=== PATIENT | female | born 1970 | race Caucasian/White ===

== ENCOUNTER 2021-07-03 18:56 | Inpatient (IN) | payer BC, SELFPAY ==
[2021-07-03 19:13] VITALS: BP 124/78; BP 131/72; PULSE 62; PULSE 92; RESP 16; RESP 18; TEMP 36.2; TEMP 36.8; O2SAT 91; O2SAT 94; BMI 70.0
[2021-07-03 21:10] VITALS: BP 133/72; PULSE 87; RESP 16; TEMP 36.6; O2SAT 95
[2021-07-03 21:16] VITALS: O2SAT 95
[2021-07-03] MEDS: Senna/Docusate Sodium 1 Tablet 2 TABLET PO (23:12)
[2021-07-03] MEDS: MELATONIN 3 MG TABLET PO (23:13)
[2021-07-03] MEDS: Polyethylene Glycol 3350 17 GM PACKET PO (23:13)
[2021-07-03] MEDS: Albuterol Sulfate 8 gm Inhaler (60 puffs) 2 PUFF INHALATION (23:20)
[2021-07-03 23:24] VITALS: RESP 12; O2SAT 90
[2021-07-03] MEDS: Sodium Chloride 0.65% 1 SPRAY SPRAY.BTL NASAL (23:24)
[2021-07-03 23:37] VITALS: PULSE 86; RESP 12; RESP 18; O2SAT 98
[2021-07-04 03:18] VITALS: PULSE 86; RESP 12; RESP 20; O2SAT 98
[2021-07-04 05:37] LABS: Hematocrit 30.4 % (37-47); Hemoglobin 8.9 g/dL (12.0-15.0); Mean Corp Hgb Conc 29.3 g/dL (32-36); Mean Corpuscular Hgb 23.4 pg (27.0-32.0); Mean Platelet Vol. 8.3 fl (6.2-12.0); POSITIVE MORPHOLOGY YES; Platelet Count 204 K/mm3 (150-450); RBC Distribution Width CV 22.5 % (11.6-14.6); RBC Distribution Width SD 65.9 fl (35.1-43.9); White Blood Count 5.1 K/mm3 (4.4-11.0)
[2021-07-04 05:42] LABS: Scan Indicated on CBC? Y/N YES- FLAGS NOTED
[2021-07-04 05:49] LABS: ALB/GLOB Ratio 0.6 RATIO (0.9-2.4); AST(SGOT) 23 U/L (15-37); Alanine Aminotransfer ALT/SGPT 34 U/L (13-56); Albumin, Serum 2.2 g/dL (3.2-5.0); Alkaline Phosphatase 77 U/L (45-117); Anion Gap 8 (5-15); BUN 45 mg/dL (7-18); BUN/Creat Ratio 18.9 RATIO (10-20); Calcium,Total 8.6 mg/dL (8.5-10.1); Chloride 104 mmol/L (98-107); Creatinine, Serum 2.38 mg/dL (0.55-1.02); EST Glomerular Filtration Rate 23 mL/min (>60); Est Glom Filt Rate - Afr Amer 27 mL/min (>60); Glucose 97 mg/dL (74-106); Magnesium 1.5 mg/dL (1.6-2.6); Phosphorus 5.5 mg/dL (2.5-4.9); Potassium 4.2 mmol/L (3.5-5.1); Protein, Total 6.2 g/dL (6.4-8.2); Sodium Level 140 mmol/L (136-145)
[2021-07-04] MEDS: Cholestyramine/Sucrose 4 GM/PACKET 2 GM PO (06:32)
[2021-07-04 07:09] VITALS: BP 126/76; PULSE 80; RESP 20; TEMP 36.4; O2SAT 99
[2021-07-04 07:20] VITALS: RESP 20
[2021-07-04] MEDS: Sodium Chloride 3% 500 ML IV.SOLN. INHALATION ×2 (07:20→22:49)
[2021-07-04] MEDS: Aspirin 81 MG TAB.CHEW PO (08:51)
[2021-07-04] MEDS: Pantoprazole Sodium 40 MG Tablet PO (08:51)
[2021-07-04] MEDS: Gabapentin 300 MG Capsule PO (08:51)
[2021-07-04] MEDS: Polyethylene Glycol 3350 17 GM PACKET PO ×2 (08:51→21:16)
[2021-07-04] MEDS: Cholecalciferol (VIT D3) 25 MCG TABLET (1,000 UNITS) 50 MCG PO (08:52)
[2021-07-04] MEDS: Senna/Docusate Sodium 1 Tablet 2 TABLET PO ×2 (08:52→21:16)
--- NOTE | 2021-07-04 10:36 | HP.PCM_ITS ---
HPI - General General Date of Admission: 07/03/21 HPI Narrative PHILLIP GARCIA, is a 51 F with a PMH of obesity, MIGUEL, GERD, chronic diarrhea following cholecystectomy and anxiety who presented to [facility] on 06/03/21 with acute hypoxic respiratory failure due to COVID 19 PNA. She was a transfer from [facility] where she presented on 06/02/21 for a higher level of care. She was unvaccinated. She was intubated from 06/04-06/18 and during her time in the ICU she had multiple complications that included MRS PNA, MSSA PNA, COVID PNA and Staph Hominis bacteremia. She had ARF and the Creat is still elevated. While in the ICU she had hallucinations and she believes that 1 of the doctors was doing things that were not good for her. She has never been one to follow up with a doctor regularly. Last PAP and MMG were several years ago. She has never had a colonoscopy. Prior to becoming ill with COVID she was thinking about looking into bariatric surgery to help her lose weight. She has been having a lot of pain in the knees and the hips and tells me that prior to becom ing ill the R leg has been weaker than the left. She has been having trouble walking and at the end of the day prior to the illness she had to use a rollator for stability/support. she became very weak with prolonged complicated illness due to COVID. She was transferred to the inpt rehab unit at [facility] on 07/03/21 for 3 hours of therapy daily to restore function/independence to her level prior to COVID. 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 She drives and was independent in all ADL's. Echocardiogram at an outside hospital in March 2021 showed an EF of 55 to 60% with no wall motion abnormalities. There was mild to moderate concentric LVH. No pulmonary hypertension was noted. Repeat ECHO at [facility] normal wall thickness of the left ventricle with a 55% ejection fraction. There was no significant valvular heart disease and it was a difficult study and could not estimate the right ventricular systolic pressure. She also had an event monitor at that time and everything was good. Intubated from 06/04?06/18. She had Staph Hominis bacteremia during her stay at [facility] Ultrasound of the lower extremities on 06/15/2021 was negative for superficial or deep vein thrombosis. She has only had 1 sleep study and that was 15 years ago. She has a CPAP unit at home and does not know the pressure. While at [facility] she was extubated and placed on BIPAP at 14/8. Has occasionally felt depressed in the past but, it passes shortly and she has never had any tx. the anxiety she was having at [facility] was fear based because she strongly believed one of the docs in the ICU was trying to hurt her. [facility] Medical History (Updated 07/08/21 @ 11:[address] Katherine Jonas DO) Anxiety Asthma Depression GERD without esophagitis Heel spur Insomnia Osteoarthritis (arthritis due to wear and tear of joints) Peripheral neuropathy Allergy/AdvReac Type Severity Reaction Status Date / Time No Known Allergies Allergy Verified 07/03/21 20:02 Family History (Updated 07/04/21 @ 10:[address] Katherine Jonas DO) Mother Alzheimer's dementia Surgical History (Updated 07/04/21 @ 15:[address] Katherine Jonas DO) H/O foot surgery History of cholecystectomy History of hip surgery Social History (Updated 07/04/21 @ 15:[address] 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 For lunch she has a bowl of soup and crackers which she takes to work. Sometimes has pretzels for a snack. Eats lunch at 12:30- 1 and does not get home until 7 PM and then she is starved. Her sometimes cooks and it is usually not healthy and may include pizza, hot dogs, fast food. Does not plan meals and her hisband is not supportive of healthy eating. He is a little overweight and likes to eat junk. ROS Constitutional Constitutional: Reports body ache(s), change in weight, daytime sleepiness, d ifficulty sleeping, night sweats and weight gain Eyes Eyes: Denies blurry vision, burning, periorbital itching or photophobia ENT HEENT: Reports dry mouth Cardiovascular Cardiovascular: Reports dyspnea on exertion, easily tiring during activity and edema; Denies chest pain, claudication, dizziness, leg ulcers, lightheadedness or numbness in extremities Respiratory/Chest Respiratory/Chest: Reports cough, dyspnea on exertion and shortness of breath with exertion; Denies hemoptysis Gastrointestinal Gastrointestinal: Reports diarrhea; Denies abdominal pain or dyspepsia Genitourinary Genitourinary: Denies burning urination Musculoskeletal Musculoskeletal: Reports arthralgias and joint stiffness Integumentary Integumentary: Reports wounds; Denies alopecia, pruritus, rash or unusual bruising Neurologic Neurologic: Reports burning sensations and focal weakness; Denies headache(s) Psychiatric Psychiatric: Reports visual hallucinations; Denies behavioral changes, cognitive impairment, confusion, homicidal ideation, panic attacks, suicidal ideation or suicidal thoughts Endocrine Endocrinology: Denies polydipsia, polyphagia or polyuria Hematologic/Lymphatic Hematologic/Lymphatic: Denies easy bleeding or easy bruising Allergic/Immunologic Allergic/Immunologic: Reports rhinitis Vital Signs Vital Signs Vital Signs: 07/03/21 19:13 07/03/21 21:10 07/03/21 21:16 Temperature 97.1 F L 98 F Temperature Source Temporal Oral Pulse Rate 62 87 Respiratory Rate 16 16 Respiratory Effort Normal Non-Labored Respiratory Depth Normal Respiratory Pattern Normal Blood Pressure 124/78 H 133/72 H Blood Pressure Mean 93 92 Blood Pressure Source Monitor Monitor Blood Pressure Position Semi-Fowlers Semi-Fowlers Blood Pressure Location Right Arm Right Arm Pulse Ox 94 95 95 Oxygen Delivery Method Nasal Cannula Nasal Cannula Nasal Cannula Oxygen Flow Rate (L/min) 2 2 2 Fraction of Inspired Oxygen (FIO2) 07/03/21 23:24 07/03/21 23:37 07/04/21 03:18 Temperature Temperature Source Pulse Rate 86 86 Respiratory Rate 18 20 H Respiratory Effort Non-Labored Respiratory Depth Normal Respiratory Pattern Normal Normal Normal Blood Pressure Blood Pressure Mean Blood Pressure Source Blood Pressure Position Blood Pressure Location Pulse Ox 90 98 98 Oxygen Delivery Method Room Air Oxygen Flow Rate (L/min) Fraction of Inspired Oxygen (FIO2) 35 35 35 07/04/21 07:09 07/04/21 07:20 07/04/21 10:18 Temperature 97.5 F L Temperature Source Oral Pulse Rate 80 Respiratory Rate 20 H 20 H Respiratory Effort Respiratory Depth Respiratory Pattern Normal Blood Pressure 126/76 H Blood Pressure Mean 92 Blood Pressure Source Monitor Blood Pressure Position Semi-Fowlers Blood Pressure Location Right Arm Pulse Ox 99 Oxygen Delivery Method Bi-pap Nasal Cannula Oxygen Flow Rate (L/min) 2 2 2 Fraction of Inspired Oxygen (FIO2) Weight Weight: 420 lb 15.063 oz Body Mass Index (BMI) 70.0 Physical Exam Const alert, oriented x3 and no apparent distress Constitutional Narrative: Making good eye contact, appropriate. General Appearance: cooperative, comfortable, well kempt and anxious HEENT HEENT Narrative: dry mucous membranes Neck no lymphadenopathy, supple and no carotid bruits Resp normal respiratory effort, no use of accessory muscles and clear to auscultation bilaterally Resp Narrative: Not tachypneic and no conversational dyspnea. BS's are diminished in the bases and this is more than likely due to body habitus. Cardio regular rate, regular rhythm, S1 normal heart sound, S2 normal heart sound, no murmurs, no rub and no gallops Cardio Narrative: When she becomes anxious the heart rate goes up. GI normal to inspection, nondistended, normoactive bowel sounds and non-tender GI Narrative: No guarding with palpation. Extremity Extremity Narrative: Negative Myron's and Rylie's signs She has edema of both LE's but, she states this is the best the edema has been in a long time. Skin Skin Narrative: No rashes. She has a pressure ulcer on the R buttock which has a scab on it and is thus unstageable. She has breakdown in a skin fold on her back which I can not really call a pressure wound. It may have happened due to moisture accumulation/maceration in the fold. the base is 80% slough. It is moist but, there is no purulent drainage and there is no odor. She has some bruising around the buttocks and the tops of the posterior thighs which I suspect is due to the bedpan. Neuro oriented x3, CN's II-XII intact bilaterally and no focal motor deficits Motor Exam: strength 5/5 throughout Psych affect normal Psych Narrative: Appropriate, making good eye contact. Able to stay on topic and focus. No flight of ideas. She gets tearful at times and I suspect she has underlying depression and anxiety. She denies any SI or HI. Committed to getting better. Results Lab / Micro Data Result Diagrams: 07/04/21 05:26 07/08/21 09:16 Labs: Laboratory Results - last 24 hr 07/04/21 05:26: Sodium 140, Potassium 4.2, Chloride 104, Carbon Dioxide 28.0, Anion Gap 8, BUN 45 H, Creatinine 2.38 H, Estim Creat Clear Calc 24.60, Est GFR (MDRD) Af Amer 27 L, Est GFR (MDRD) Non-Af 23 L, BUN/Creatinine Ratio 18.9, Glucose 97, Calcium 8.6, Phosphorus 5.5 H, Magnesium 1.5 L, Total Bilirubin 0.40, AST 23, ALT 34, Alkaline Phosphatase 77, Total Protein 6.2 L, Albumin 2.2 L, Globulin 4.0, Albumin/Globulin Ratio 0.6 L 07/04/21 05:26: WBC 5.1, RBC 3.80 L, Hgb 8.9 L, Hct 30.4 L, MCV 80.0 L, MCH 23.4 L, MCHC 29.3 L, RDW Std Deviation 65.9 H, RDW Coeff of Rani 22.5 H, Plt Count 204, MPV 8.3 Assessment & Plan Assessment/Plan (1) Debility: (2) COVID-19 virus infection: (3) MIRIAM (acute kidney injury): (4) Iron deficiency anemia due to chronic blood loss: (5) Hyperphosphatemia: (6) Hypomagnesemia: (7) Hypokalemia: (8) Hypoxemia requiring supplemental oxygen: (9) Anxiety: (10) Decubitus ulcer, stage 3: (11) Super obesity: (12) Peripheral neuropathy: (13) MIGUEL (obstructive sleep apnea): (14) Glucose intolerance: PLAN: PLAN PT for gait stability OT for ADL's Analgesics as needed Bowel protocol - she is on stool softeners and Questran also - ? contradictory. Will DC the Questran. Fall precautions Assess for Anxiety/Depression GI prophylaxis with pantoprazole DVT prophylaxis with Lovenox 40 mg subcu twice daily Follow up with PCP and pulmonary following DC from [facility] AM lab including CMP, CBC, Mag and Phos - personally reviewed Check a hemocclut stool. How did she get iron deficient if she is not having periods? Will need a new sleep study post DC.....will try to arrange for the night of DC when we know the day of discharge. Network Support Administrator consult I suspect she does not have diarrhea due to bile acids......I suspect she has IBS and the reason the diarrhea is in the AM is because she is anxious about going to work. Establish a good diet to promote weight loss prior to DC and recommend she follow up with the [facility] program. I think that she would benefit from counselling greatly to learn how to set boundaries. Santyl to the wound in the skin fold and Mepilex to the decub on the R buttock Charges/Coding Visit Charges Inpatient E&M: 63948 Init Hosp L3
[2021-07-04] MEDS: Menthol/Lanolin/Calamine/Znox 113 GM Tube 1 APPLIC TOPICAL ×2 (11:03→21:15)
[2021-07-04] MEDS: Fluticasone 0.05% 1 SPRAY NASAL.SRY 2 SPRAY NASAL ×2 (11:03→21:15)
[2021-07-04] MEDS: Nystatin Powder 15gm Bottle 1 APPLIC TOPICAL ×2 (11:05→21:18)
[2021-07-04] MEDS: guaiFENesin 600 MG Tablet PO ×2 (11:05→21:16)
[2021-07-04] MEDS: Ferrous Sulfate 325 MG Tablet PO (11:05)
[2021-07-04] MEDS: Enoxaparin 40 MG/0.4 ML Syringe SC ×2 (12:15→21:16)
--- NOTE | 2021-07-04 12:15 | NURSING ---
wound photo: lower back skin fold
--- NOTE | 2021-07-04 12:15 | NURSING ---
wound photo: right buttock
--- NOTE | 2021-07-04 14:42 | PCM.RU.PYE ---
Admission Information Primary Diagnosis:: debility due to COVID 19 with severe sepsis and prolonged intubation Status Changes from Prescreening?: No changes Identified Actual Problem List:: Infection, Skin Intergrity, Depression, Bladder Incontinence, Bowel, Constipation, Alteration in Sleep, Alteration in Nutrition, Mobility Impaired, Self Care Deficit, Alteration/ Air Exchange, Fluid Change-Dehydration and Alteration-Leisure Activ. Potential Problem List:: DVT, Bleeding, Infection, UTI, Aspiration, Falls, Skin Integrity and Depression Risk of Complications DVT: LMWH and CHRISTINA Hose Bleeding: Monitor Lab Values, Nursing to Teach Precautions for anti-coagulation therapy., Wound, if applicable, to be assessed every shift. and Stroke patients assessed for lethargy or change in status. Infection: Clinical Staff to Monitor for S/S of infection: and S/S of infection include fever, redness, warmth, etc. Urinary Tract Infection: Monitor for frequency, burning, discomfort, or incontinence. and Nursing will obtain urine sample for urinalysis and C&S when ordered. Aspiration: Clinical staff will monitor for coughing, drooling, congestion., Speech will evaluate swallowing and dsyphasia. and Nursing will monitor patient swallowing during meals. Falls: Patient will be evaluated for Fall Precautions and Patient will be placed on Fall Precautions as indicated per protocol. Skin Breakdown: Nursing will assess skin daily using assessment tool. and Nursing will place on Skin Breakdown Precautions as indicated. Pain: Clinical staff will assess patient's pain level per protocol., Medications will be given, if needed, and the pain level reassessed. and Other methods: Massage, distraction, decrease stimulus, etc. used PRN. Plan of Care Patient requires physician specializing in physical medicine and rehab oversight to provide close medical supervision of rehab issues including: Pain Management, Sleep Problems, Bowel and Bladder, Medical and co-morbidity Management, DVT prophylaxis, Rehabilitation Leadership and Coordination of treatment team Patient needs Physical Therapy: For a minimum of 1 hour and At least 5 out of 7 days Patient needs Physical Therapy to improve:: Mobility, Strengthening, Transfers, Stretching, ROM, Endurance, Stairs, Gait and Balance Patient needs Occupational Therapy: For a minimum of 1 hour and At least 5 out of 7 days Patient needs Occupational Therapy to improve ADL's incl.: Eating, Grooming, Bathing, Dressing, Toileting, Toilet transfers, Community Reintegration, Higher functioning activities, Household tasks, Adaptive Equipment, Splinting and Other activities as determined Patient requires 24/7 Rehabilitation Nursing for: Pain Issues, Identifying and preventing risk factors, Monitoring and reporting current medical conditions, Assisting with ambulation, transfer, and all ADL's, Teaching patients about disease process and medications, Family teaching, Providing safe environment, Bowel and Bladder Issues, Skin integrity and Medication Management Patient needs Developer Designer/ Case Management for: Discharge Planning, Arranging Home Equipment or Services and Family Interventions Patient needs Dietary and Nutrition Services for: Adequate Nutrition, Nutritional Supplements and Nutritional Education Goals Patient will remain: free from falls Patient will perform bed mobility at: MOD I level of assist. Patient will complete transfers from bed to chair at: - (Min assist x2 for safety) Patient will ambulate: - (25 feet with a Rollator) Patient will complete upper body dressing at: MOD I level of assist. Patient will complete lower body dressing at: - (Minimal assistance) Patient will complete toileting at: - (Min assist x2) Patient will perform bathing at: - (Min assist x2) Patient will achieve: - (2 steps and one curb step) Patient will have pain level of: of 3 or less Patient's skin will: remain intact Patient will receive: adequate nutrition. Discharge Planning Pt Prognosis for Sig. Practical Improv. w/in Reasonable Time: Good Estimated Length of stay (days): 21 Anticipated D/C Destination: TBD Was Preadmission Assessment Accurate?: Yes
[2021-07-04] MEDS: Calcium Carbonate 500 MG Tablet PO (18:00)
[2021-07-04] MEDS: Juven (unflavored) Packet 1 PACKET PO (18:00)
[2021-07-04 19:55] VITALS: BP 112/74; PULSE 86; RESP 16; TEMP 36.9; O2SAT 92
[2021-07-04] MEDS: MELATONIN 3 MG TABLET PO (21:16)
[2021-07-04 22:03] VITALS: PULSE 86; RESP 20
[2021-07-04 22:43] VITALS: PULSE 73; RESP 12; RESP 17; O2SAT 98
[2021-07-05] VITALS (9 sets, daily range): BP systolic 128–139; BP diastolic 73–75; PULSE 74–93; RESP 12–25; TEMP 36.6–36.7; O2SAT 91–98
[2021-07-05] MEDS: Acetaminophen 500 MG Tablet 1000 MG PO ×2 (05:59→21:38)
[2021-07-05] MEDS: Sodium Chloride 3% 500 ML IV.SOLN. INHALATION ×3 (07:18→22:30)
[2021-07-05] MEDS: Fluticasone 0.05% 1 SPRAY NASAL.SRY 2 SPRAY NASAL ×2 (08:45→21:40)
[2021-07-05] MEDS: Enoxaparin 40 MG/0.4 ML Syringe SC ×2 (08:46→21:38)
[2021-07-05] MEDS: Juven (unflavored) Packet 1 PACKET PO ×2 (08:47→18:16)
[2021-07-05] MEDS: guaiFENesin 600 MG Tablet PO ×2 (08:48→21:37)
[2021-07-05] MEDS: Cholecalciferol (VIT D3) 25 MCG TABLET (1,000 UNITS) 50 MCG PO (08:48)
[2021-07-05] MEDS: Aspirin 81 MG TAB.CHEW PO (08:48)
[2021-07-05] MEDS: Calcium Carbonate 500 MG Tablet PO ×2 (08:48→18:16)
[2021-07-05] MEDS: Nystatin Powder 15gm Bottle 1 APPLIC TOPICAL ×2 (08:51→21:37)
[2021-07-05] MEDS: Menthol/Lanolin/Calamine/Znox 113 GM Tube 1 APPLIC TOPICAL ×2 (08:52→21:43)
[2021-07-05] MEDS: Gabapentin 300 MG Capsule PO (11:35)
[2021-07-05] MEDS: Pantoprazole Sodium 40 MG Tablet PO (11:35)
[2021-07-05] MEDS: Ferrous Sulfate 325 MG Tablet PO (11:35)
[2021-07-05] MEDS: Ascorbic Acid 500 MG Tablet PO (11:35)
[2021-07-05 14:11] LABS: Bedside Glucose 150 mg/dL (70-110)
[2021-07-05] MEDS: Collagenase 30gm Tube 1 APPLIC TOPICAL (21:36)
[2021-07-05] MEDS: MELATONIN 3 MG TABLET PO (21:38)
[2021-07-06] VITALS (9 sets, daily range): BP systolic 121–133; BP diastolic 69–88; PULSE 67–92; RESP 12–20; TEMP 36.7–36.9; O2SAT 91–98
[2021-07-06] MEDS: Pantoprazole Sodium 40 MG Tablet PO (06:58)
[2021-07-06] MEDS: Nystatin Powder 15gm Bottle 1 APPLIC TOPICAL ×2 (06:58→20:45)
[2021-07-06] MEDS: Sodium Chloride 3% 500 ML IV.SOLN. INHALATION ×2 (08:00→21:54)
[2021-07-06] MEDS: guaiFENesin 600 MG Tablet PO ×2 (08:18→20:42)
[2021-07-06] MEDS: Fluticasone 0.05% 1 SPRAY NASAL.SRY 2 SPRAY NASAL ×2 (08:18→20:41)
[2021-07-06] MEDS: Calcium Carbonate 500 MG Tablet PO ×2 (08:18→16:35)
[2021-07-06] MEDS: Juven (unflavored) Packet 1 PACKET PO ×2 (08:18→16:36)
[2021-07-06] MEDS: Gabapentin 300 MG Capsule PO (08:18)
[2021-07-06] MEDS: Aspirin 81 MG TAB.CHEW PO (08:18)
[2021-07-06] MEDS: Cholecalciferol (VIT D3) 25 MCG TABLET (1,000 UNITS) 50 MCG PO (08:18)
[2021-07-06] MEDS: Enoxaparin 40 MG/0.4 ML Syringe SC ×2 (08:19→20:42)
[2021-07-06] MEDS: Menthol/Lanolin/Calamine/Znox 113 GM Tube 1 APPLIC TOPICAL ×2 (08:21→20:47)
[2021-07-06] MEDS: Acetaminophen 500 MG Tablet 1000 MG PO (08:37)
--- NOTE | 2021-07-06 10:30 | PCM.PN.BLA ---
Progress Note Afebrile VSS Maintaining appropriate oxygen saturation on RA Oral intake is good Discussed with nursing - no problems that need addressed Reviewed the PT/OT/ST notes Medication list reviewed. I reviewed the senior warehouse clerk' consult and recommendations She is c/o not sleeping well at night. still having some abd cramping at times. Denies CP, calf pain, N/V, lightheadedness. She is SOB with exertion and tachypneic. HR increases 20-30 BPM with exertion Physical Exam Const alert and oriented x3 Constitutional Narrative: Appears anxious. Already worried about being discharged prior to when she feels she is ready to go home. General Appearance: cooperative Resp clear to auscultation bilaterally Resp Narrative: diminished due to body habitus. SHe has no rales, rhonchi or wheeZes. she is not tachypneic at rest, only with exertion Effort and Inspection: able to speak in complete sentences Cardio regular rhythm Cardio Narrative: HR increases significantly with any exertion. Heart sounds are distant. Radial pulse is strong. GI normal to inspection, nondistended, normoactive bowel sounds Extremity no calf tenderness and no pedal edema Extremity Narrative: venous HTN with purplish discoloration of the distal legs when the legs are dependent Skin Skin Narrative: no change in the decubitus ulcers on the R buttock and in the skin fold on her back Neuro CN's II-XII intact bilaterally and moves all extremities Assessment & Plan Assessment/Plan (1) Depression: (2) Dyspnea on exertion: (3) IBS (irritable bowel syndrome): (4) Iron deficiency anemia due to chronic blood loss: (5) Super obesity: (6) MIGUEL (obstructive sleep apnea): (7) Pneumonia due to 2019 novel coronavirus: (8) Decubitus ulcer, stage 3: PLAN: 1. Continue therapy. 2. I suspect the marked dyspnea on exertion and tachycardia is due to deconditioning and obesity. Cannot rule out at this point that she has some structural lung damage secondary to recent Covid pneumonia followed by MRSA pneumonia. May need pulmonary function tests going forward. Continue inhalers. 3. Continue calorie controlled diet 4. Continue Effexor XR 75 mg daily Visit Charges Inpatient E&M: 36909 Subs Hosp L2
[2021-07-06] MEDS: Ferrous Sulfate 325 MG Tablet PO (12:11)
[2021-07-06] MEDS: Ascorbic Acid 500 MG Tablet PO (12:11)
[2021-07-06] MEDS: MELATONIN 3 MG TABLET PO (20:42)
[2021-07-06] MEDS: Collagenase 30gm Tube 1 APPLIC TOPICAL (20:43)
[2021-07-07 02:09] VITALS: RESP 12
[2021-07-07] MEDS: Pantoprazole Sodium 40 MG Tablet PO (05:49)
[2021-07-07] MEDS: Nystatin Powder 15gm Bottle 1 APPLIC TOPICAL ×2 (06:03→21:21)
[2021-07-07 07:13] VITALS: BP 128/70; PULSE 74; RESP 18; TEMP 36.6; O2SAT 91
[2021-07-07] MEDS: Enoxaparin 40 MG/0.4 ML Syringe SC ×2 (09:01→21:20)
[2021-07-07] MEDS: Fluticasone 0.05% 1 SPRAY NASAL.SRY 2 SPRAY NASAL ×2 (09:02→21:22)
[2021-07-07] MEDS: Cholecalciferol (VIT D3) 25 MCG TABLET (1,000 UNITS) 50 MCG PO (09:02)
[2021-07-07] MEDS: Gabapentin 300 MG Capsule PO (09:02)
[2021-07-07] MEDS: Calcium Carbonate 500 MG Tablet PO ×2 (09:02→17:39)
[2021-07-07] MEDS: Venlafaxine XR 75 MG Capsule PO (09:02)
[2021-07-07] MEDS: guaiFENesin 600 MG Tablet PO ×2 (09:02→21:20)
[2021-07-07] MEDS: Juven (unflavored) Packet 1 PACKET PO ×2 (09:03→17:36)
[2021-07-07] MEDS: Aspirin 81 MG TAB.CHEW PO (09:03)
[2021-07-07] MEDS: Menthol/Lanolin/Calamine/Znox 113 GM Tube 1 APPLIC TOPICAL ×2 (10:52→21:19)
[2021-07-07] MEDS: Ferrous Sulfate 325 MG Tablet PO (11:09)
[2021-07-07] MEDS: Ascorbic Acid 500 MG Tablet PO (11:09)
[2021-07-07] MEDS: Acetaminophen 500 MG Tablet 1000 MG PO (11:09)
[2021-07-07 19:35] VITALS: BP 136/67; PULSE 80; RESP 18; TEMP 36.8; O2SAT 94
[2021-07-07] MEDS: MELATONIN 3 MG TABLET PO (21:20)
[2021-07-07] MEDS: Collagenase 30gm Tube 1 APPLIC TOPICAL (21:22)
[2021-07-07] MEDS: Sodium Chloride 3% 500 ML IV.SOLN. INHALATION (21:38)
[2021-07-07 21:39] VITALS: PULSE 81; RESP 20
[2021-07-07 22:00] VITALS: PULSE 80; RESP 18
[2021-07-07 22:02] VITALS: RESP 12; RESP 18
[2021-07-08] VITALS (8 sets, daily range): BP systolic 77–153; BP diastolic 48–88; PULSE 79–104; RESP 12–20; TEMP 36.6; O2SAT 94–96
[2021-07-08] MEDS: Acetaminophen 500 MG Tablet 1000 MG PO (00:01)
[2021-07-08] MEDS: traZODone 50 MG Tablet PO (00:01)
[2021-07-08] MEDS: Sodium Chloride 3% 500 ML IV.SOLN. INHALATION (06:40)
[2021-07-08] MEDS: Pantoprazole Sodium 40 MG Tablet PO (06:40)
[2021-07-08] MEDS: Nystatin Powder 15gm Bottle 1 APPLIC TOPICAL ×2 (06:41→21:21)
[2021-07-08] MEDS: Aspirin 81 MG TAB.CHEW PO (07:53)
[2021-07-08] MEDS: Juven (unflavored) Packet 1 PACKET PO ×2 (07:53→17:10)
[2021-07-08] MEDS: Calcium Carbonate 500 MG Tablet PO ×2 (07:53→17:10)
[2021-07-08] MEDS: guaiFENesin 600 MG Tablet PO ×2 (07:53→21:22)
[2021-07-08] MEDS: Cholecalciferol (VIT D3) 25 MCG TABLET (1,000 UNITS) 50 MCG PO (07:53)
[2021-07-08] MEDS: Venlafaxine XR 75 MG Capsule PO (07:53)
[2021-07-08] MEDS: Fluticasone 0.05% 1 SPRAY NASAL.SRY 2 SPRAY NASAL ×2 (07:55→21:23)
[2021-07-08] MEDS: Enoxaparin 40 MG/0.4 ML Syringe SC ×2 (07:55→21:22)
[2021-07-08] MEDS: Menthol/Lanolin/Calamine/Znox 113 GM Tube 1 APPLIC TOPICAL ×2 (08:04→21:22)
[2021-07-08 09:43] LABS: Anion Gap 8 (5-15); BUN 52 mg/dL (7-18); BUN/Creat Ratio 33.8 RATIO (10-20); Calcium,Total 8.8 mg/dL (8.5-10.1); Chloride 104 mmol/L (98-107); Creatinine, Serum 1.54 mg/dL (0.55-1.02); EST Glomerular Filtration Rate 37 mL/min (>60); Est Glom Filt Rate - Afr Amer 45 mL/min (>60); Estimated Creatinine Clearance 38.02 ml/min; Glucose 121 mg/dL (74-106); Magnesium 1.4 mg/dL (1.6-2.6); Phosphorus 3.9 mg/dL (2.5-4.9); Potassium 3.8 mmol/L (3.5-5.1); Sodium Level 139 mmol/L (136-145)
--- NOTE | 2021-07-08 11:26 | PCM.PN.BLA ---
Progress Note Jenna was seen on team rounds today. Her Sister Maggie was participating by phone. Afebrile VSS-blood pressure dropped to 77 when standing this AM with PT. the heart rate increased to 104. She is c/o lightheadedness. Maintaining appropriate oxygen saturation on RA Oral intake is good She is incontinent of urine. Discussed with nursing - nursing is reporting she is c/o abd pain and nausea. Did not get out of bed yesterday and would not walk with nursing. The pt tells me that she got nauseated after a breathing tx. Reviewed the PT/OT notes Medication list reviewed. Lab today shows that the BUN has increased to 52 but the creatinine has improved and is 1.54 today which is down from 2.38 at admission. Phosphorus is now normal at 3.9 but the magnesium remains low at 1.4. She denies CP, SOB, calf pain. No emesis. The PROMISE wraps are not very effective because they are falling down and they are around her ankles. Physical Exam Const Constitutional Narrative: Sitting in the recliner. Looking pale. Not diaphoretic. Alert ad oriented X 3. Does not look uncomfortable. General Appearance: cooperative Resp normal respiratory effort and no use of accessory muscles Resp Narrative: Not tachypneic and no conversational dyspnea. The lungs are clear to auscultation bilaterally but diminished and that is more likely than not secondary to body habitus. Effort and Inspection: able to speak in complete sentences Cardio regular rate and regular rhythm Cardio Narrative: Gets tachycardic when going from sitting to standing and with exertion. Extremity no calf tenderness Extremity Narrative: She has edema of the LE's Skin Wound Narrative: Will examine when the dressing is changed today. The nurses report that the wound on the R buttock is looking better. Neuro oriented x3, CN's II-XII intact bilaterally and moves all extremities Psych Psych Narrative: Gets anxious easily and jumps to conclusions. She told nursing it was the Effexor that caused the nausea and she had not even had a dose yet. She has a fear of doctors and over the years has not been regularly seeing her PCP. She recently changed PCP's. She has lost 5 lbs since admission and she is happy about this. Assessment & Plan Assessment/Plan (1) Debility: PLAN: Continue therapy (2) COVID-19 virus infection: PLAN: active infection resolved (3) Hypokalemia: PLAN: resolved (4) Hyperphosphatemia: PLAN: resolved (5) Hypomagnesemia: PLAN: Add a magnesium supplement and recheck in a few days (6) MIRIAM (acute kidney injury): PLAN: improving. I suspect she has IV volume depletion. We will DC the fluid restriction and I asked her to increase her water intake today. (7) Orthostatic hypotension: PLAN: Not on any antihypertensives. I suspect this is due to IV volume depletion and she was asked to increase her fluid intake today. Recheck the orthostatics in the AM. (8) Decubitus ulcer, stage 3: PLAN: This may have been a stage 3 initially but now she has qa Stage 2 in the skin fold on the back and an unstageable on the buttock due to the presence of eschar. (9) Iron deficiency anemia due to chronic blood loss: PLAN: Continue iron and ascorbic acid. If she continues to c/o nausea will DC the oral iron and give iron sucrose IV. (10) MIGUEL (obstructive sleep apnea): PLAN: needs a sleep study. I do not feel the pressure on her CPAP is adequate.....has not had a sleep study in 15 years and she has gained a lot of weight. (11) Anxiety: PLAN: This may be related to sleep deprivation.......she is also depressed. (12) Asthma: PLAN: Change the Albuterol to an inhaler and use PRN since she thinks the breathing treatments are making her nauseated. (13) IBS (irritable bowel syndrome): PLAN: Continue the Effexor. Visit Charges Inpatient E&M: 32201 Subs Hosp L2
[2021-07-08] MEDS: Magnesium Chloride 64 MG Delay Rel.Tablet 128 MG PO (15:04)
[2021-07-08] MEDS: Ferrous Sulfate 325 MG Tablet PO (15:04)
[2021-07-08] MEDS: Ascorbic Acid 500 MG Tablet PO (15:04)
--- NOTE | 2021-07-08 16:52 | CASEMGMT ---
Team meeting held with pt present and pt sister Maggie on conference call. Pt is receiving PT/OT and progressing with therapy. Pt updated that NRD with insurance is 07/10/21 and continued stay is not guaranteed. Pt plans to return home with her at time of discharge. Will continue with treatment plan at this time and reteam next week. [place]
[2021-07-08] MEDS: Collagenase 30gm Tube 1 APPLIC TOPICAL (21:20)
[2021-07-08] MEDS: MELATONIN 3 MG TABLET PO (21:22)
[2021-07-09] MEDS: Nystatin Powder 15gm Bottle 1 APPLIC TOPICAL ×2 (06:16→21:51)
[2021-07-09] MEDS: Pantoprazole Sodium 40 MG Tablet PO (06:20)
[2021-07-09] MEDS: Albuterol Sulfate 8 gm Inhaler (60 puffs) 2 PUFF INHALATION (06:30)
[2021-07-09] MEDS: Aspirin 81 MG TAB.CHEW PO (07:33)
[2021-07-09] MEDS: Acetaminophen 500 MG Tablet 1000 MG PO ×2 (07:33→16:13)
[2021-07-09] MEDS: Calcium Carbonate 500 MG Tablet PO ×2 (07:34→16:44)
[2021-07-09] MEDS: Enoxaparin 40 MG/0.4 ML Syringe SC ×2 (07:34→21:50)
[2021-07-09] MEDS: guaiFENesin 600 MG Tablet PO ×2 (07:34→21:49)
[2021-07-09] MEDS: Cholecalciferol (VIT D3) 25 MCG TABLET (1,000 UNITS) 50 MCG PO (07:34)
[2021-07-09] MEDS: Venlafaxine XR 75 MG Capsule PO (07:34)
[2021-07-09] MEDS: Juven (unflavored) Packet 1 PACKET PO ×2 (07:35→16:45)
[2021-07-09] MEDS: Fluticasone 0.05% 1 SPRAY NASAL.SRY 2 SPRAY NASAL ×2 (07:37→21:50)
[2021-07-09] MEDS: Menthol/Lanolin/Calamine/Znox 113 GM Tube 1 APPLIC TOPICAL ×2 (07:39→21:52)
[2021-07-09 08:28] VITALS: BP 126/78; PULSE 86; RESP 16; TEMP 36.6; O2SAT 93
[2021-07-09] MEDS: Ferrous Sulfate 325 MG Tablet PO (13:07)
[2021-07-09] MEDS: Ascorbic Acid 500 MG Tablet PO (13:07)
[2021-07-09] MEDS: Magnesium Chloride 64 MG Delay Rel.Tablet 128 MG PO (16:44)
[2021-07-09 19:31] VITALS: BP 144/78; PULSE 84; RESP 18; TEMP 36.4; O2SAT 95
[2021-07-09] MEDS: MELATONIN 3 MG TABLET PO (21:49)
[2021-07-09] MEDS: Collagenase 30gm Tube 1 APPLIC TOPICAL (21:50)
[2021-07-09 22:00] VITALS: PULSE 71; RESP 17
[2021-07-09 22:10] VITALS: PULSE 80; RESP 12; RESP 18; O2SAT 95
[2021-07-09] MEDS: traZODone 50 MG Tablet PO (23:54)
[2021-07-10] MEDS: Pantoprazole Sodium 40 MG Tablet PO (06:28)
[2021-07-10] MEDS: Nystatin Powder 15gm Bottle 1 APPLIC TOPICAL ×2 (06:29→22:17)
[2021-07-10 07:25] VITALS: O2SAT 93
[2021-07-10] MEDS: Fluticasone 0.05% 1 SPRAY NASAL.SRY 2 SPRAY NASAL ×2 (07:57→22:18)
[2021-07-10] MEDS: Juven (unflavored) Packet 1 PACKET PO ×2 (07:57→17:00)
[2021-07-10] MEDS: Aspirin 81 MG TAB.CHEW PO (07:57)
[2021-07-10] MEDS: Calcium Carbonate 500 MG Tablet PO ×2 (07:57→17:01)
[2021-07-10] MEDS: Venlafaxine XR 75 MG Capsule PO (07:57)
[2021-07-10] MEDS: Enoxaparin 40 MG/0.4 ML Syringe SC ×2 (07:58→22:18)
[2021-07-10] MEDS: guaiFENesin 600 MG Tablet PO ×2 (07:58→22:18)
[2021-07-10] MEDS: Cholecalciferol (VIT D3) 25 MCG TABLET (1,000 UNITS) 50 MCG PO (07:59)
[2021-07-10 08:11] VITALS: BP 137/78; PULSE 76; RESP 16; TEMP 36.1; O2SAT 100
[2021-07-10] MEDS: Menthol/Lanolin/Calamine/Znox 113 GM Tube 1 APPLIC TOPICAL ×2 (09:53→22:19)
[2021-07-10] MEDS: Ferrous Sulfate 325 MG Tablet PO (12:11)
[2021-07-10] MEDS: Ascorbic Acid 500 MG Tablet PO (12:11)
--- NOTE | 2021-07-10 12:48 | PCM.PN.BLA ---
Progress Note Afebrile VSS Maintaining appropriate oxygen saturation on RA Oral intake is good Having 2 bowel movements daily. they are soft and not liquid Discussed with nursing - no problems that need addressed Reviewed the PT/OT notes Medication list reviewed. She has been refusing the Senokot S. She is also refusing the MiraLAX. she is on a magnesium supplement Her biggest complaint today is she is not sleeping well. She denies nausea/vomiting/abdominal pain. No constipation. She is tolerating the Effexor with no adverse side effects. No cough and no SOB. She has lost 13 lbs since admission Physical Exam Narrative alert, oriented X 3. Looks tired today. Pleasant and motivated to get better. HEENT moist oral mucous membranes Resp normal respiratory effort and clear to auscultation bilaterally Resp Narrative: Breath sounds are diminished in the bases and this is most likely secondary to body habitus. She is not tachypneic and has no conversational dyspnea. She is able to speak in full sentences. Cardio regular rate and regular rhythm GI soft to palpation, non-tender and non-distended Skin Skin Narrative: Will examine the next time she is in bed and we can get her on her side. Neuro no focal motor deficits Neuro Narrative: generalized weakness and deconditionning Assessment & Plan Assessment/Plan (1) Debility: (2) Hypomagnesemia: (3) Iron deficiency anemia due to chronic blood loss: (4) MIGUEL (obstructive sleep apnea): (5) MIRIAM (acute kidney injury): (6) COVID-19 virus infection: (7) Decubitus ulcer, stage 3: (8) Insomnia: PLAN: 1. Increase the Trazodone to 100 mg at 2100 nightly 2. HH and BMP/mag on Thursday. 3. Lactobacillus BID while she is on the antibiotic. Visit Charges Inpatient E&M: 11317 Subs Hosp L2
--- NOTE | 2021-07-10 14:07 | NURSING ---
Had talked with nursing staff about wounds. MORIS Quintanilla states there is minimal change in the back crease wound. moisture is playing a large part in the healing process. the folds tend to stay to moist. may try placing something to separate the fold slightly to allow some air to get to it. will monitor as needed.
[2021-07-10] MEDS: Magnesium Chloride 64 MG Delay Rel.Tablet 128 MG PO (14:11)
[2021-07-10 19:46] VITALS: BP 122/83; PULSE 89; RESP 20; TEMP 36.6; O2SAT 94
[2021-07-10 22:12] VITALS: PULSE 82; RESP 12; RESP 25; O2SAT 99
[2021-07-10] MEDS: Collagenase 30gm Tube 1 APPLIC TOPICAL (22:17)
[2021-07-10] MEDS: traZODone 100 MG Tablet PO (22:18)
[2021-07-10] MEDS: MELATONIN 3 MG TABLET PO (22:18)
[2021-07-11 00:48] VITALS: PULSE 86; RESP 12; RESP 21; O2SAT 98
[2021-07-11 04:12] VITALS: PULSE 81; RESP 12; RESP 18; O2SAT 98
[2021-07-11] MEDS: Nystatin Powder 15gm Bottle 1 APPLIC TOPICAL ×2 (06:27→21:39)
[2021-07-11] MEDS: Pantoprazole Sodium 40 MG Tablet PO (06:27)
[2021-07-11 07:56] VITALS: BP 132/69; PULSE 76; RESP 18; TEMP 36.4; O2SAT 98
[2021-07-11] MEDS: Enoxaparin 40 MG/0.4 ML Syringe SC ×2 (07:59→21:39)
[2021-07-11] MEDS: Calcium Carbonate 500 MG Tablet PO ×2 (07:59→17:15)
[2021-07-11] MEDS: Cholecalciferol (VIT D3) 25 MCG TABLET (1,000 UNITS) 50 MCG PO (07:59)
[2021-07-11] MEDS: Juven (unflavored) Packet 1 PACKET PO ×2 (07:59→17:15)
[2021-07-11] MEDS: Aspirin 81 MG TAB.CHEW PO (07:59)
[2021-07-11] MEDS: guaiFENesin 600 MG Tablet PO ×2 (08:00→21:39)
[2021-07-11] MEDS: Venlafaxine XR 75 MG Capsule PO (08:00)
[2021-07-11] MEDS: Fluticasone 0.05% 1 SPRAY NASAL.SRY 2 SPRAY NASAL ×2 (08:00→21:39)
[2021-07-11] MEDS: Menthol/Lanolin/Calamine/Znox 113 GM Tube 1 APPLIC TOPICAL ×2 (08:07→21:40)
--- NOTE | 2021-07-11 11:52 | PCM.PN.BLA ---
Progress Note Afebrile VSS Maintaining appropriate oxygen saturation on RA while awake Oral intake is good Discussed with nursing - she is c/o dysuria today. Reviewed the PT/OT notes - she is making good progress. Able to take 5 steps with PT today using FWW. Medication list reviewed. Has only had 1 BM today and had only 1 BM yesterday. She has no complaints today other than dysuria. Physical Exam Narrative alert, oriented X 3. Pleasant and motivated to get better. Wants to stay until she feels she is ready but, I once again explained it is not my decision.....it is up to the insurance company when she will need to be discharged. Const alert, oriented x3 and no apparent distress Constitutional Narrative: sitting in the recliner at the bedside General Appearance: cooperative and comfortable HEENT moist oral mucous membranes Neck supple Resp normal respiratory effort, no use of accessory muscles and clear to auscultation bilaterally Resp Narrative: diminished BS's but, CTA. Not tachypneic, no conversational dyspnea, able to speak in full sentences, no accessory muscle use. Effort and Inspection: able to speak in complete sentences Cardio regular rate, regular rhythm, S1 normal heart sound, S2 normal heart sound, no murmurs, no rub and no gallops Cardio Narrative: HR is increased with exertion into the low 100's. It is regular. After she rests a few minutes the HR comes down into the 70's. she is very deconditioned. GI normal to inspection, nondistended, normoactive bowel sounds, soft to palpation, non-tender and non-distended GI Narrative: obese, soft, ND, NT normal BS's, soft Extremity no clubbing, cyanosis or edema and no calf tenderness Extremity Narrative: She has edema of the LE's. she needs compression and better elevation than just putting her feet on a step when sitting in the chair. Skin Skin Narrative: The fissure in the skin fold on the back is still open and is macerated. It is very difficult to keep this dry because it is in a skin fold and she sweats. Rashes: no rashes Wound Narrative: Neuro oriented x3, CN's II-XII intact bilaterally, moves all extremities and no focal motor deficits Psych affect normal Psych Narrative: Has a lot of anxiety about being discharged before she thinks she is ready. Assessment & Plan Assessment/Plan (1) Dysuria: (2) Debility: (3) Hypomagnesemia: (4) Iron deficiency anemia due to chronic blood loss: (5) MIGUEL (obstructive sleep apnea): (6) MIRIAM (acute kidney injury): (7) COVID-19 virus infection: (8) Decubitus ulcer, stage 3: (9) Insomnia: PLAN: 1. straight cath for a UA today. 2. start an antibiotic if the UA is dirty 3. continue therapy 4. continue the Effexor - no adverse reactions so far. Will continue to monitor closely. If the anxiety continues to be a problem may consider using Effexor and Buspar. 5. Needs psychotherapy at [place]. Visit Charges Inpatient E&M: 03677 Subs Hosp L2
[2021-07-11] MEDS: Ferrous Sulfate 325 MG Tablet PO (12:10)
[2021-07-11] MEDS: Ascorbic Acid 500 MG Tablet PO (12:10)
[2021-07-11] MEDS: Magnesium Chloride 64 MG Delay Rel.Tablet 128 MG PO (14:58)
--- NOTE | 2021-07-11 19:15 | NURSING ---
PT STRAIGHT CATHED WITHOUT DIFFICULTY TO OBTAIN URINE SPECIMEN. PT'S SISTER REMAINS IN ROOM WITH PT DURING PROCEDURE. PT TOLERATES PROCEDURE WELL.
[2021-07-11 19:28] VITALS: BP 114/63; PULSE 90; RESP 18; TEMP 36.6; O2SAT 96
[2021-07-11 20:12] LABS: Mucous, Urine 0 SEEN /hpf (<or=2+)
[2021-07-11 20:14] LABS: Color, Urine Yellow (Yellow); Glucose, Dipstick Normal (Normal); Ketone-Dipstick Negative (Negative); Leukocyte Esterase-Dipstick 500 /ul (Negative); Nitrite-Dipstick Negative (Negative); Occult Blood-Urine 250 /ul (Negative); Protein-Dipstick 100 mg/dl (Negative); Specific Gravity, Urine 1.015 (1.002-1.030); Urine Bilirubin Dipstick Negative (Negative); Urine Clarity Sl. Cloudy (Clear); Urine Urobilinogen Normal (Normal)
[2021-07-11 20:28] LABS: Amorphous Sediment 2+ URATE; Bacteria 1+ /hpf (None Seen); Red Blood Cells-Urine 25-50 SEEN /hpf (0-5); Squamous Epithelial Cells - UA 5-10 SEEN /hpf (5-10); White Blood Cells 50-100 SEEN /hpf (0-5)
[2021-07-11] MEDS: Collagenase 30gm Tube 1 APPLIC TOPICAL (21:38)
[2021-07-11] MEDS: MELATONIN 3 MG TABLET PO (21:39)
[2021-07-11] MEDS: traZODone 100 MG Tablet PO (21:40)
[2021-07-11] MEDS: Acetaminophen 500 MG Tablet 1000 MG PO (21:51)
[2021-07-11] MEDS: Cefadroxil 500 MG CAPSULE 1000 MG PO (21:52)
[2021-07-11 22:07] VITALS: PULSE 93; RESP 12; RESP 22; O2SAT 98
[2021-07-12 02:35] VITALS: PULSE 84; RESP 12; RESP 18; O2SAT 97
[2021-07-12 05:25] VITALS: PULSE 83; RESP 12; RESP 18; O2SAT 98
[2021-07-12 06:02] LABS: Hematocrit 29.3 % (37-47)
[2021-07-12 06:32] LABS: Anion Gap 8 (5-15); BUN 33 mg/dL (7-18); BUN/Creat Ratio 32.7 RATIO (10-20); Calcium,Total 8.6 mg/dL (8.5-10.1); Chloride 105 mmol/L (98-107); Creatinine, Serum 1.01 mg/dL (0.55-1.02); EST Glomerular Filtration Rate 61 mL/min (>60); Est Glom Filt Rate - Afr Amer 74 mL/min (>60); Estimated Creatinine Clearance 57.96 ml/min; Glucose 96 mg/dL (74-106); Magnesium 1.6 mg/dL (1.6-2.6); Potassium 3.5 mmol/L (3.5-5.1); Sodium Level 140 mmol/L (136-145)
[2021-07-12] MEDS: Nystatin Powder 15gm Bottle 1 APPLIC TOPICAL ×2 (06:36→21:53)
[2021-07-12] MEDS: Pantoprazole Sodium 40 MG Tablet PO (06:36)
[2021-07-12 07:49] VITALS: BP 116/64; PULSE 78; RESP 16; TEMP 36.8; O2SAT 93
[2021-07-12] MEDS: guaiFENesin 600 MG Tablet PO ×2 (09:16→21:44)
[2021-07-12] MEDS: Juven (unflavored) Packet 1 PACKET PO ×2 (09:16→17:12)
[2021-07-12] MEDS: Venlafaxine XR 75 MG Capsule PO (09:16)
[2021-07-12] MEDS: Cholecalciferol (VIT D3) 25 MCG TABLET (1,000 UNITS) 50 MCG PO (09:16)
[2021-07-12] MEDS: Calcium Carbonate 500 MG Tablet PO ×2 (09:16→17:12)
[2021-07-12] MEDS: Aspirin 81 MG TAB.CHEW PO (09:16)
[2021-07-12] MEDS: Enoxaparin 40 MG/0.4 ML Syringe SC ×2 (09:17→21:43)
[2021-07-12] MEDS: Menthol/Lanolin/Calamine/Znox 113 GM Tube 1 APPLIC TOPICAL ×2 (09:17→21:52)
[2021-07-12] MEDS: Fluticasone 0.05% 1 SPRAY NASAL.SRY 2 SPRAY NASAL ×2 (09:22→21:43)
[2021-07-12] MEDS: Cefadroxil 500 MG CAPSULE 1000 MG PO ×2 (09:43→21:42)
[2021-07-12] MEDS: Acetaminophen 500 MG Tablet 1000 MG PO (09:48)
--- NOTE | 2021-07-12 12:03 | CASEMGMT ---
Social Work SW let pt know the next review date for insurance is 07/16/21, pt states understanding. SARBJIT Jeronimo
[2021-07-12] MEDS: Ferrous Sulfate 325 MG Tablet PO (12:23)
[2021-07-12] MEDS: Ascorbic Acid 500 MG Tablet PO (12:23)
[2021-07-12] MEDS: Magnesium Chloride 64 MG Delay Rel.Tablet 128 MG PO (17:12)
[2021-07-12 19:25] VITALS: BP 117/73; PULSE 85; RESP 16; TEMP 36.5; O2SAT 96
[2021-07-12] MEDS: Arthritis Pain Compound 60 CLICK TUBE TOPICAL (21:41)
[2021-07-12] MEDS: traZODone 100 MG Tablet PO (21:42)
[2021-07-12] MEDS: MELATONIN 3 MG TABLET PO (21:43)
[2021-07-12] MEDS: Collagenase 30gm Tube 1 APPLIC TOPICAL (21:54)
[2021-07-12 22:53] VITALS: PULSE 81; RESP 12; RESP 18; O2SAT 97
[2021-07-13 02:32] VITALS: PULSE 79; RESP 12; RESP 17; O2SAT 95
[2021-07-13] MEDS: Pantoprazole Sodium 40 MG Tablet PO (05:58)
[2021-07-13] MEDS: Arthritis Pain Compound 60 CLICK TUBE TOPICAL ×3 (05:58→22:28)
[2021-07-13] MEDS: Nystatin Powder 15gm Bottle 1 APPLIC TOPICAL ×2 (06:09→22:26)
[2021-07-13 07:12] VITALS: BP 130/70; PULSE 71; RESP 16; TEMP 36.7; O2SAT 96
[2021-07-13] MEDS: Calcium Carbonate 500 MG Tablet PO ×2 (08:02→17:19)
[2021-07-13] MEDS: Fluticasone 0.05% 1 SPRAY NASAL.SRY 2 SPRAY NASAL ×2 (08:02→22:29)
[2021-07-13] MEDS: Cholecalciferol (VIT D3) 25 MCG TABLET (1,000 UNITS) 50 MCG PO (08:02)
[2021-07-13] MEDS: Enoxaparin 40 MG/0.4 ML Syringe SC ×2 (08:02→22:29)
[2021-07-13] MEDS: guaiFENesin 600 MG Tablet PO ×2 (08:02→22:29)
[2021-07-13] MEDS: Aspirin 81 MG TAB.CHEW PO (08:02)
[2021-07-13] MEDS: Cefadroxil 500 MG CAPSULE 1000 MG PO ×2 (08:02→22:28)
[2021-07-13] MEDS: Juven (unflavored) Packet 1 PACKET PO ×2 (08:04→17:19)
[2021-07-13] MEDS: Venlafaxine XR 75 MG Capsule PO (08:04)
[2021-07-13] MEDS: Menthol/Lanolin/Calamine/Znox 113 GM Tube 1 APPLIC TOPICAL ×2 (09:05→22:28)
[2021-07-13 10:15] VITALS: O2SAT 92
[2021-07-13] MEDS: Ascorbic Acid 500 MG Tablet PO (11:37)
[2021-07-13] MEDS: Ferrous Sulfate 325 MG Tablet PO (11:37)
[2021-07-13] MEDS: Acetaminophen 500 MG Tablet 1000 MG PO (12:17)
[2021-07-13] MEDS: Magnesium Chloride 64 MG Delay Rel.Tablet 128 MG PO (15:47)
[2021-07-13 19:30] VITALS: BP 119/69; PULSE 80; RESP 18; TEMP 36.3; O2SAT 96
[2021-07-13] MEDS: Collagenase 30gm Tube 1 APPLIC TOPICAL (22:27)
[2021-07-13] MEDS: traZODone 100 MG Tablet PO (22:28)
[2021-07-13] MEDS: MELATONIN 3 MG TABLET PO (22:29)
[2021-07-14 00:45] VITALS: PULSE 79; RESP 12; RESP 23; O2SAT 95
[2021-07-14 03:19] VITALS: PULSE 82; RESP 12; RESP 21; O2SAT 99
[2021-07-14 05:26] VITALS: PULSE 80; RESP 12; RESP 21; O2SAT 96
[2021-07-14] MEDS: Pantoprazole Sodium 40 MG Tablet PO (06:07)
[2021-07-14] MEDS: Arthritis Pain Compound 60 CLICK TUBE TOPICAL ×3 (06:07→20:20)
[2021-07-14] MEDS: Nystatin Powder 15gm Bottle 1 APPLIC TOPICAL ×2 (06:17→20:22)
[2021-07-14 08:20] VITALS: BP 130/69; PULSE 75; RESP 16; TEMP 36.5; O2SAT 95
[2021-07-14] MEDS: Fluticasone 0.05% 1 SPRAY NASAL.SRY 2 SPRAY NASAL ×2 (09:31→20:19)
[2021-07-14] MEDS: Cefadroxil 500 MG CAPSULE 1000 MG PO ×2 (09:32→20:20)
[2021-07-14] MEDS: guaiFENesin 600 MG Tablet PO ×2 (09:33→20:20)
[2021-07-14] MEDS: Aspirin 81 MG TAB.CHEW PO (09:33)
[2021-07-14] MEDS: Cholecalciferol (VIT D3) 25 MCG TABLET (1,000 UNITS) 50 MCG PO (09:33)
[2021-07-14] MEDS: Venlafaxine XR 75 MG Capsule PO (09:33)
[2021-07-14] MEDS: Calcium Carbonate 500 MG Tablet PO ×2 (09:33→17:17)
[2021-07-14] MEDS: Enoxaparin 40 MG/0.4 ML Syringe SC ×2 (09:34→20:19)
[2021-07-14] MEDS: Juven (unflavored) Packet 1 PACKET PO ×2 (09:35→17:17)
[2021-07-14] MEDS: Menthol/Lanolin/Calamine/Znox 113 GM Tube 1 APPLIC TOPICAL ×2 (09:46→20:23)
[2021-07-14] MEDS: Ferrous Sulfate 325 MG Tablet PO (14:44)
[2021-07-14] MEDS: Magnesium Chloride 64 MG Delay Rel.Tablet 128 MG PO (14:45)
[2021-07-14] MEDS: Acetaminophen 500 MG Tablet 1000 MG PO (14:45)
[2021-07-14] MEDS: Ascorbic Acid 500 MG Tablet PO (14:45)
[2021-07-14 19:37] VITALS: BP 128/81; PULSE 78; RESP 18; TEMP 36.6; O2SAT 95
[2021-07-14] MEDS: MELATONIN 3 MG TABLET PO (20:20)
[2021-07-14] MEDS: traZODone 100 MG Tablet PO (20:20)
[2021-07-14] MEDS: Collagenase 30gm Tube 1 APPLIC TOPICAL (20:21)
[2021-07-14 23:25] VITALS: PULSE 85; RESP 12; RESP 23; O2SAT 96
[2021-07-15 03:27] VITALS: PULSE 69; RESP 12; RESP 18; O2SAT 98
[2021-07-15] MEDS: Arthritis Pain Compound 60 CLICK TUBE TOPICAL ×3 (06:09→22:41)
[2021-07-15] MEDS: Pantoprazole Sodium 40 MG Tablet PO (06:09)
[2021-07-15] MEDS: Nystatin Powder 15gm Bottle 1 APPLIC TOPICAL ×2 (06:10→21:09)
[2021-07-15] MEDS: Fluticasone 0.05% 1 SPRAY NASAL.SRY 2 SPRAY NASAL ×2 (08:11→21:10)
[2021-07-15] MEDS: Enoxaparin 40 MG/0.4 ML Syringe SC ×2 (08:11→21:10)
[2021-07-15] MEDS: Aspirin 81 MG TAB.CHEW PO (08:12)
[2021-07-15] MEDS: Cholecalciferol (VIT D3) 25 MCG TABLET (1,000 UNITS) 50 MCG PO (08:12)
[2021-07-15] MEDS: guaiFENesin 600 MG Tablet PO ×2 (08:12→21:10)
[2021-07-15] MEDS: Cefadroxil 500 MG CAPSULE 1000 MG PO ×2 (08:12→21:09)
[2021-07-15] MEDS: Calcium Carbonate 500 MG Tablet PO ×2 (08:12→17:30)
[2021-07-15] MEDS: Venlafaxine XR 75 MG Capsule PO (08:12)
[2021-07-15] MEDS: Menthol/Lanolin/Calamine/Znox 113 GM Tube 1 APPLIC TOPICAL ×2 (08:17→22:45)
[2021-07-15] MEDS: Juven (unflavored) Packet 1 PACKET PO ×2 (08:18→17:30)
[2021-07-15 08:38] VITALS: BP 132/62; PULSE 74; RESP 20; TEMP 36.6; O2SAT 98
--- NOTE | 2021-07-15 10:07 | PN_ITS ---
Progress Note Jenna was seen on team rounds today. Her sister Maggie participated by phone. All questions were addressed and answered. Afebrile VSS Maintaining appropriate oxygen saturation on RA Oral intake is good Discussed with nursing - no problems that need addressed. She is sleeping much better with the increase in the trazodone. She tells me she is having 1 bowel movement daily and occasionally will miss a day. She continues to complain of abdominal discomfort at times but, this is usually right before she has a bowel movement. Reviewed the PT/OT notes - She is not yet ready for DC but she is getting stronger. Medication list reviewed. She talked with the certified endoscopy technician last Thursday and she had her questions answered. She denies CP, SOB, palpitations, nausea. Physical Exam Const alert, oriented x3 and no apparent distress Constitutional Narrative: sitting in the recliner at the bedside General Appearance: cooperative Resp normal respiratory effort Resp Narrative: diminished BS's but, CTA. No tachypneic, no conversational dyspnea, able to speak in full sentences, no accessory muscle use. HR and RR increase with exertion but, they go back to baseline within a few minutes. Not coughing. Cardio Cardio Narrative: HR is increased with exertion into the low 100's. It is regular. After she rests a few minutes the HR comes down into the 70's. she is very deconditioned. GI GI Narrative: obese, soft, ND, NT normal BS's, soft Extremity no calf tenderness Skin Skin Narrative: The decubitus ulcer on the R buttock is healed/closed. The fissure in the skin fold on the back is still open and is macerated. It is very difficult to keep this dry because it is in a skin fold and she sweats. Rashes: no rashes Psych Psych Narrative: Making good eye contact. More upbeat and less anxiety/te arfulness. She still occasionally has a moment but, she can reason with herself and move on. She is motivated to get better. One of the staff who has had bypass surgery talked with her today and answered her questions. she is still wanting to deflect blame for poor diet on her . I am reminding her that maintaining a healthy diet is her responsibility and she can not count on him to support her efforts. I am encouraging her to consider going to the [place] [facility] for psychotherapy. She needs to be able to set boundaries at work and then keep those boundaries. She needs to be able to take responsibility for the choices she makes. If she is going to consider bariatric surgery she needs to be able to do these things prior to surgery. Assessment & Plan Assessment/Plan (1) Debility: (2) COVID-19 virus infection: (3) Pneumonia due to 2019 novel coronavirus: (4) MIRIAM (acute kidney injury): (5) Dyspnea on exertion: (6) Cystitis: (7) Anxiety: (8) IBS (irritable bowel syndrome): (9) Insomnia: (10) MIGUEL (obstructive sleep apnea): (11) Super obesity: (12) Glucose intolerance: PLAN: 1. Continue therapy 2. Finish 7-day course of Duricef for Klebsiella pneumonia and E. coli cystitis 3. Continue Effexor 75 mg p.o. daily and consider increasing the dose to 150 mg daily on if no adverse reactions. 4. Will need a new sleep study post discharge as she has not had 1 in 15 years and has gained a lot of weight since then 5. Why Weight and psychotherapy post DC. 6. Will need to continue PT/OT post DC and will recommend [facility] 7. Will need to continue a exercise program post DC....daily. I recommended she consider joining a pool to offload her weight and make it easier on her joints to exercise 8. If she is able to lose a significant amount of weight she would likely benefit from joint replacemen. Visit Charges Inpatient E&M: 55358 Subs Hosp L2
[2021-07-15] MEDS: Ferrous Sulfate 325 MG Tablet PO (11:22)
[2021-07-15] MEDS: Ascorbic Acid 500 MG Tablet PO (11:22)
--- NOTE | 2021-07-15 15:10 | CASEMGMT ---
Social Work Team meeting held today with pt present and pt sister Maggie on Conference Call. Pt is receiving PT/OT and making significant gains with therapy. NRD with insurance is 07/16 and pt is aware that continued stay is not guaranteed. Pt would benefit from continued stay in Rehab unit. D/C plans are to return home with spouse although spouse will not be available to assist and pt will need to be independent upon return home. Treatment plan will continue at this time and will reteam next week. [place] Corrales
[2021-07-15] MEDS: Magnesium Chloride 64 MG Delay Rel.Tablet 128 MG PO (15:11)
--- NOTE | 2021-07-15 15:20 | NURSING ---
Pt had been in therapy when this nurse was on unit. discussed wounds with Dr Sanchez. states the buttock wound is now healed. the wound to the back crease tends to stay too moist. will try Melgisorb or InterDry to fold to wick away the moisture. will try to assess again tomorrow.
[2021-07-15 19:25] VITALS: BP 127/67; PULSE 84; RESP 16; TEMP 36.8; O2SAT 95
[2021-07-15] MEDS: traZODone 100 MG Tablet PO (21:09)
[2021-07-15] MEDS: MELATONIN 3 MG TABLET PO (21:10)
[2021-07-15] MEDS: Collagenase 30gm Tube 1 APPLIC TOPICAL (21:11)
[2021-07-15 22:00] VITALS: PULSE 83; RESP 17
[2021-07-15 22:20] VITALS: PULSE 83; RESP 12; RESP 21; O2SAT 98
[2021-07-16 02:25] VITALS: PULSE 69; RESP 12; RESP 18; O2SAT 98
[2021-07-16 05:10] VITALS: PULSE 87; RESP 12; RESP 16; O2SAT 95
[2021-07-16] MEDS: Nystatin Powder 15gm Bottle 1 APPLIC TOPICAL ×2 (06:16→21:31)
[2021-07-16] MEDS: Arthritis Pain Compound 60 CLICK TUBE TOPICAL ×3 (06:17→20:56)
[2021-07-16] MEDS: Pantoprazole Sodium 40 MG Tablet PO (06:18)
[2021-07-16 07:30] VITALS: BP 129/78; PULSE 74; RESP 18; TEMP 36.7; O2SAT 99
[2021-07-16] MEDS: Enoxaparin 40 MG/0.4 ML Syringe SC ×2 (09:15→21:32)
[2021-07-16] MEDS: Juven (unflavored) Packet 1 PACKET PO ×2 (09:15→17:55)
[2021-07-16] MEDS: Calcium Carbonate 500 MG Tablet PO ×2 (09:15→17:55)
[2021-07-16] MEDS: Cholecalciferol (VIT D3) 25 MCG TABLET (1,000 UNITS) 50 MCG PO (09:16)
[2021-07-16] MEDS: Aspirin 81 MG TAB.CHEW PO (09:16)
[2021-07-16] MEDS: guaiFENesin 600 MG Tablet PO ×2 (09:16→21:34)
[2021-07-16] MEDS: Venlafaxine XR 75 MG Capsule PO (09:16)
[2021-07-16] MEDS: Cefadroxil 500 MG CAPSULE 1000 MG PO ×2 (09:16→21:32)
[2021-07-16] MEDS: Menthol/Lanolin/Calamine/Znox 113 GM Tube 1 APPLIC TOPICAL ×2 (09:23→21:33)
[2021-07-16] MEDS: Acetaminophen 500 MG Tablet 1000 MG PO (11:17)
[2021-07-16] MEDS: Ferrous Sulfate 325 MG Tablet PO (11:18)
[2021-07-16] MEDS: Ascorbic Acid 500 MG Tablet PO (11:18)
--- NOTE | 2021-07-16 14:35 | NURSING ---
Pt currently in therapy. discussed wound care with nursing staff.
[2021-07-16] MEDS: Magnesium Chloride 64 MG Delay Rel.Tablet 128 MG PO (15:13)
[2021-07-16 18:56] VITALS: BP 122/69; PULSE 84; RESP 18; TEMP 36.3; O2SAT 99
[2021-07-16] MEDS: MELATONIN 3 MG TABLET PO (21:31)
[2021-07-16] MEDS: Fluticasone 0.05% 1 SPRAY NASAL.SRY 2 SPRAY NASAL (21:32)
[2021-07-16] MEDS: traZODone 100 MG Tablet PO (21:33)
[2021-07-16 22:00] VITALS: PULSE 84; RESP 16
[2021-07-16 23:55] VITALS: PULSE 78; RESP 12; RESP 18; O2SAT 96
[2021-07-17 04:20] VITALS: PULSE 81; RESP 12; RESP 21; O2SAT 95
[2021-07-17] MEDS: Arthritis Pain Compound 60 CLICK TUBE TOPICAL ×3 (06:15→20:58)
[2021-07-17] MEDS: Pantoprazole Sodium 40 MG Tablet PO (06:16)
[2021-07-17] MEDS: Nystatin Powder 15gm Bottle 1 APPLIC TOPICAL ×2 (06:16→21:01)
[2021-07-17 07:38] VITALS: BP 125/68; PULSE 62; RESP 18; TEMP 37.2
[2021-07-17] MEDS: Cefadroxil 500 MG CAPSULE 1000 MG PO ×2 (07:55→20:59)
[2021-07-17] MEDS: Venlafaxine XR 75 MG Capsule PO (07:55)
[2021-07-17] MEDS: Calcium Carbonate 500 MG Tablet PO ×2 (07:55→16:33)
[2021-07-17] MEDS: Aspirin 81 MG TAB.CHEW PO (07:55)
[2021-07-17] MEDS: Juven (unflavored) Packet 1 PACKET PO ×2 (07:55→16:33)
[2021-07-17] MEDS: Enoxaparin 40 MG/0.4 ML Syringe SC ×2 (07:56→20:59)
[2021-07-17] MEDS: Cholecalciferol (VIT D3) 25 MCG TABLET (1,000 UNITS) 50 MCG PO (07:56)
[2021-07-17] MEDS: Fluticasone 0.05% 1 SPRAY NASAL.SRY 2 SPRAY NASAL ×2 (07:56→20:57)
[2021-07-17] MEDS: guaiFENesin 600 MG Tablet PO ×2 (07:56→21:00)
[2021-07-17] MEDS: Menthol/Lanolin/Calamine/Znox 113 GM Tube 1 APPLIC TOPICAL ×2 (08:08→20:59)
[2021-07-17] MEDS: Ferrous Sulfate 325 MG Tablet PO (12:22)
[2021-07-17] MEDS: Ascorbic Acid 500 MG Tablet PO (12:22)
[2021-07-17] MEDS: Magnesium Chloride 64 MG Delay Rel.Tablet 128 MG PO (16:33)
[2021-07-17 19:53] VITALS: BP 127/80; PULSE 84; RESP 16; TEMP 36.6; O2SAT 97
[2021-07-17] MEDS: Acetaminophen 500 MG Tablet 1000 MG PO (20:04)
[2021-07-17] MEDS: traZODone 100 MG Tablet PO (20:59)
[2021-07-17] MEDS: MELATONIN 3 MG TABLET PO (21:00)
[2021-07-18 01:40] VITALS: PULSE 80; RESP 12; RESP 20; O2SAT 95
[2021-07-18 04:23] VITALS: PULSE 79; RESP 12; RESP 22; O2SAT 95
[2021-07-18] MEDS: Pantoprazole Sodium 40 MG Tablet PO (05:55)
[2021-07-18] MEDS: Arthritis Pain Compound 60 CLICK TUBE TOPICAL ×3 (05:56→23:25)
[2021-07-18] MEDS: Nystatin Powder 15gm Bottle 1 APPLIC TOPICAL ×2 (05:59→23:23)
[2021-07-18 07:24] VITALS: BP 120/66; PULSE 71; RESP 18; TEMP 36.8; O2SAT 99
[2021-07-18] MEDS: Fluticasone 0.05% 1 SPRAY NASAL.SRY 2 SPRAY NASAL ×2 (08:30→23:24)
[2021-07-18] MEDS: Aspirin 81 MG TAB.CHEW PO (08:30)
[2021-07-18] MEDS: Juven (unflavored) Packet 1 PACKET PO ×2 (08:30→17:01)
[2021-07-18] MEDS: Cefadroxil 500 MG CAPSULE 1000 MG PO (08:30)
[2021-07-18] MEDS: Venlafaxine XR 75 MG Capsule PO (08:30)
[2021-07-18] MEDS: Calcium Carbonate 500 MG Tablet PO ×2 (08:30→17:01)
[2021-07-18] MEDS: Enoxaparin 40 MG/0.4 ML Syringe SC ×2 (08:31→23:23)
[2021-07-18] MEDS: Cholecalciferol (VIT D3) 25 MCG TABLET (1,000 UNITS) 50 MCG PO (08:31)
[2021-07-18] MEDS: guaiFENesin 600 MG Tablet PO ×2 (08:31→23:23)
[2021-07-18] MEDS: Acetaminophen 500 MG Tablet 1000 MG PO ×2 (08:34→17:01)
[2021-07-18] MEDS: Ascorbic Acid 500 MG Tablet PO (11:32)
[2021-07-18] MEDS: Ferrous Sulfate 325 MG Tablet PO (11:32)
--- NOTE | 2021-07-18 14:05 | CASEMGMT ---
Social Work SW updated pt that insurance approved more time with next update due 07/23/21. Pt appreciative of information. [place] Corrales
[2021-07-18] MEDS: Magnesium Chloride 64 MG Delay Rel.Tablet 128 MG PO (17:01)
[2021-07-18 20:12] VITALS: BP 108/66; PULSE 86; RESP 18; TEMP 36.6; O2SAT 96
[2021-07-18 22:00] VITALS: O2SAT 95
[2021-07-18 23:20] VITALS: PULSE 80; RESP 12; RESP 25; O2SAT 99
[2021-07-18] MEDS: MELATONIN 3 MG TABLET PO (23:23)
[2021-07-18] MEDS: traZODone 100 MG Tablet PO (23:25)
[2021-07-19] VITALS (7 sets, daily range): BP systolic 111–147; BP diastolic 56–74; PULSE 76–91; RESP 12–22; TEMP 36.4–36.8; O2SAT 93–96
[2021-07-19] MEDS: Menthol/Lanolin/Calamine/Znox 113 GM Tube 1 APPLIC TOPICAL ×3 (00:20→22:47)
[2021-07-19] MEDS: Arthritis Pain Compound 60 CLICK TUBE TOPICAL ×3 (06:55→22:46)
[2021-07-19] MEDS: Nystatin Powder 15gm Bottle 1 APPLIC TOPICAL ×2 (06:56→22:48)
[2021-07-19] MEDS: Pantoprazole Sodium 40 MG Tablet PO (07:00)
[2021-07-19] MEDS: Juven (unflavored) Packet 1 PACKET PO ×2 (07:37→16:18)
[2021-07-19] MEDS: Fluticasone 0.05% 1 SPRAY NASAL.SRY 2 SPRAY NASAL ×2 (07:37→22:46)
[2021-07-19] MEDS: Calcium Carbonate 500 MG Tablet PO ×2 (07:37→16:18)
[2021-07-19] MEDS: guaiFENesin 600 MG Tablet PO ×2 (07:37→22:46)
[2021-07-19] MEDS: Venlafaxine XR 75 MG Capsule PO (07:37)
[2021-07-19] MEDS: Aspirin 81 MG TAB.CHEW PO (07:37)
[2021-07-19] MEDS: Cholecalciferol (VIT D3) 25 MCG TABLET (1,000 UNITS) 50 MCG PO (07:37)
[2021-07-19] MEDS: Enoxaparin 40 MG/0.4 ML Syringe SC ×2 (07:42→22:47)
[2021-07-19] MEDS: Ascorbic Acid 500 MG Tablet PO (11:26)
[2021-07-19] MEDS: Ferrous Sulfate 325 MG Tablet PO (11:26)
--- NOTE | 2021-07-19 11:51 | NURSING ---
wound photo: back
[2021-07-19] MEDS: Fluconazole 100 MG Tablet PO (13:16)
[2021-07-19] MEDS: Acetaminophen 500 MG Tablet 1000 MG PO (13:16)
[2021-07-19] MEDS: Magnesium Chloride 64 MG Delay Rel.Tablet 128 MG PO (16:18)
[2021-07-19] MEDS: traZODone 100 MG Tablet PO (22:45)
[2021-07-19] MEDS: MELATONIN 3 MG TABLET PO (22:46)
[2021-07-20 03:45] VITALS: PULSE 80; RESP 12; RESP 20; O2SAT 95
[2021-07-20] MEDS: Nystatin Powder 15gm Bottle 1 APPLIC TOPICAL ×2 (06:08→22:32)
[2021-07-20] MEDS: Pantoprazole Sodium 40 MG Tablet PO (06:08)
[2021-07-20] MEDS: Arthritis Pain Compound 60 CLICK TUBE TOPICAL ×3 (06:08→22:30)
[2021-07-20] MEDS: Acetaminophen 500 MG Tablet 1000 MG PO (07:09)
[2021-07-20] MEDS: Aspirin 81 MG TAB.CHEW PO (07:53)
[2021-07-20] MEDS: Calcium Carbonate 500 MG Tablet PO ×2 (07:53→16:53)
[2021-07-20] MEDS: Cholecalciferol (VIT D3) 25 MCG TABLET (1,000 UNITS) 50 MCG PO (07:53)
[2021-07-20] MEDS: Venlafaxine XR 75 MG Capsule PO (07:54)
[2021-07-20] MEDS: guaiFENesin 600 MG Tablet PO ×2 (07:54→22:31)
[2021-07-20] MEDS: Fluticasone 0.05% 1 SPRAY NASAL.SRY 2 SPRAY NASAL ×2 (07:54→22:30)
[2021-07-20] MEDS: Juven (unflavored) Packet 1 PACKET PO ×2 (07:54→16:53)
[2021-07-20] MEDS: Enoxaparin 40 MG/0.4 ML Syringe SC ×2 (08:00→22:31)
[2021-07-20] MEDS: Menthol/Lanolin/Calamine/Znox 113 GM Tube 1 APPLIC TOPICAL ×2 (08:00→22:33)
[2021-07-20] MEDS: Fluconazole 100 MG Tablet PO (08:00)
[2021-07-20 08:32] VITALS: BP 132/64; PULSE 72; RESP 18; TEMP 36.2; O2SAT 97
[2021-07-20] MEDS: Ascorbic Acid 500 MG Tablet PO (13:05)
[2021-07-20] MEDS: Ferrous Sulfate 325 MG Tablet PO (13:05)
[2021-07-20] MEDS: Magnesium Chloride 64 MG Delay Rel.Tablet 128 MG PO (16:52)
[2021-07-20 19:21] VITALS: BP 127/76; PULSE 95; RESP 16; TEMP 36.8; O2SAT 96
[2021-07-20 22:15] VITALS: PULSE 82; RESP 12; RESP 20; O2SAT 95
[2021-07-20] MEDS: traZODone 100 MG Tablet PO (22:32)
[2021-07-20] MEDS: MELATONIN 3 MG TABLET PO (22:32)
[2021-07-21 03:42] VITALS: PULSE 86; RESP 12; RESP 20; O2SAT 95
[2021-07-21] MEDS: Pantoprazole Sodium 40 MG Tablet PO (07:21)
[2021-07-21] MEDS: Arthritis Pain Compound 60 CLICK TUBE TOPICAL ×3 (07:21→22:35)
[2021-07-21] MEDS: Nystatin Powder 15gm Bottle 1 APPLIC TOPICAL (07:22)
[2021-07-21 07:30] VITALS: BP 129/84; PULSE 90; RESP 18; TEMP 36.7; O2SAT 100
[2021-07-21] MEDS: guaiFENesin 600 MG Tablet PO ×2 (07:40→22:33)
[2021-07-21] MEDS: Aspirin 81 MG TAB.CHEW PO (07:40)
[2021-07-21] MEDS: Cholecalciferol (VIT D3) 25 MCG TABLET (1,000 UNITS) 50 MCG PO (07:40)
[2021-07-21] MEDS: Venlafaxine XR 75 MG Capsule PO (07:40)
[2021-07-21] MEDS: Enoxaparin 40 MG/0.4 ML Syringe SC ×2 (07:41→22:33)
[2021-07-21] MEDS: Calcium Carbonate 500 MG Tablet PO ×2 (07:41→16:03)
[2021-07-21] MEDS: Fluticasone 0.05% 1 SPRAY NASAL.SRY 2 SPRAY NASAL ×2 (07:41→22:34)
[2021-07-21] MEDS: Fluconazole 100 MG Tablet PO (07:41)
[2021-07-21] MEDS: Juven (unflavored) Packet 1 PACKET PO ×2 (07:41→16:03)
[2021-07-21] MEDS: Menthol/Lanolin/Calamine/Znox 113 GM Tube 1 APPLIC TOPICAL ×2 (07:45→22:34)
[2021-07-21] MEDS: Magnesium Chloride 64 MG Delay Rel.Tablet 128 MG PO (14:01)
[2021-07-21] MEDS: Ascorbic Acid 500 MG Tablet PO (14:01)
[2021-07-21] MEDS: Ferrous Sulfate 325 MG Tablet PO (14:01)
[2021-07-21 20:30] VITALS: BP 130/93; PULSE 96; RESP 18; TEMP 36.6; O2SAT 96
[2021-07-21] MEDS: Acetaminophen 500 MG Tablet 1000 MG PO (21:03)
[2021-07-21] MEDS: MELATONIN 3 MG TABLET PO (22:33)
[2021-07-21] MEDS: traZODone 100 MG Tablet PO (22:34)
[2021-07-21 23:15] VITALS: PULSE 81; RESP 12; RESP 20; O2SAT 94
[2021-07-22 03:15] VITALS: PULSE 80; RESP 12; RESP 18; O2SAT 94
[2021-07-22] MEDS: Arthritis Pain Compound 60 CLICK TUBE TOPICAL ×3 (06:55→22:40)
[2021-07-22] MEDS: Pantoprazole Sodium 40 MG Tablet PO (06:55)
[2021-07-22] MEDS: Nystatin Powder 15gm Bottle 1 APPLIC TOPICAL ×2 (06:55→22:41)
[2021-07-22 08:28] VITALS: BP 138/72; PULSE 72; RESP 16; TEMP 36.6; O2SAT 93
[2021-07-22] MEDS: Aspirin 81 MG TAB.CHEW PO (08:35)
[2021-07-22] MEDS: Fluconazole 100 MG Tablet PO (08:35)
[2021-07-22] MEDS: Calcium Carbonate 500 MG Tablet PO ×2 (08:35→16:24)
[2021-07-22] MEDS: Fluticasone 0.05% 1 SPRAY NASAL.SRY 2 SPRAY NASAL ×2 (08:35→22:40)
[2021-07-22] MEDS: Venlafaxine XR 75 MG Capsule PO (08:35)
[2021-07-22] MEDS: Juven (unflavored) Packet 1 PACKET PO ×2 (08:35→16:24)
[2021-07-22] MEDS: Cholecalciferol (VIT D3) 25 MCG TABLET (1,000 UNITS) 50 MCG PO (08:36)
[2021-07-22] MEDS: guaiFENesin 600 MG Tablet PO ×2 (08:36→22:41)
[2021-07-22] MEDS: Acetaminophen 500 MG Tablet 1000 MG PO ×2 (08:37→16:26)
[2021-07-22] MEDS: Menthol/Lanolin/Calamine/Znox 113 GM Tube 1 APPLIC TOPICAL ×2 (08:42→22:40)
[2021-07-22] MEDS: Enoxaparin 40 MG/0.4 ML Syringe SC ×2 (09:23→22:39)
[2021-07-22] MEDS: Ferrous Sulfate 325 MG Tablet PO (12:20)
[2021-07-22] MEDS: Ascorbic Acid 500 MG Tablet PO (12:20)
--- NOTE | 2021-07-22 15:00 | CASEMGMT ---
Social Work Team meeting held with pt present and her sister Maggie on Conference Call. Pt is receiving PT/OT and progressing well with functional gains. Pt NRD with insurance is 07/23/21. PT is anxious about this as she feels she is improving but not strong enough to return home yet. Therapy does feel pt has made much improvement but would benefit from continued stay to work on strengthening, endurance and bed transfers. Pt plans to return home at time of discharge with her who works and will not be available to assist. Will continue with treatment at this time and plan to reteam next week. [place]
[2021-07-22] MEDS: Magnesium Chloride 64 MG Delay Rel.Tablet 128 MG PO (15:21)
--- NOTE | 2021-07-22 15:41 | PCM.PN.BLA ---
Progress Note Jenna was seen on team rounds today. Her sister Maggei participated by phone. Afebrile VSS-blood pressure is within normal limits. Maintaining appropriate oxygen saturation on RA Oral intake is good Discussed with nursing - no problems that need addressed Reviewed the PT/OT notes Medication list reviewed. She is c/o increased weakness on the right side (arm and leg) since coming off the ventilator. She is R had dominant and now the RUE is weaker than the left. She is also c/o some tremors in the R foot since coming off the vent. she has tingling in the index, middle and ring fingers of the R hand and this wakes her up at night. She uses a mouse at work all day long. She was walking without an AD most of the time prior to COVID but, occasionally resorted to a rollator the few months prior to COVID when she was tired. I talked with therapy and they too have found the Right side to be weaker and the R hand is less coordinated than the dominant hand should be. She is sleeping well at night. She is not complaining of any abdominal pain, nausea or vomiting in at least a week now. She does admit to feeling still a little anxious about going home. She is afraid she will not be able to care for herself yet. She is getting around adequately with the Rollator but she is unable to stand and perform house management tasks for more than a few minutes. We also talked about the importance of psychotherapy and a good support TEAM if she is going to be able to reach her goal of wt loss, knee replacement surgery, success with setting boundaries and taking responsibility for her poor health. I reinforced with her that the medication helps you get you to therapy and medication alone does not fix your inability to set boundaries, does not make you own your disregard for your health and will not help you with achieving your goals. This is a long standing problem. Physical Exam Narrative alert, oriented X 3. Pleasant and motivated to get better. Wants to stay until she feels she is ready but, I once again explained it is not my decision.....it is up to the insurance company when she will need to be discharged. Const alert, oriented x3 and no apparent distress Constitutional Narrative: sitting in the recliner at the bedside eating lunch. she makes better eye contact now. she is calmer and the speech is not as pressured. She does not fly off the handle when we discuss hard topics now. Her face is noticeably thinner than at admission. The wound care nurse tells me that the skin fold in the back is not nearly as deep due to the weight loss and she thinks we can go back to [facility] now. General Appearance: cooperative and comfortable HEENT moist oral mucous membranes Neck supple Resp normal respiratory effort, no use of accessory muscles and clear to auscultation bilaterally Resp Narrative: diminished BS's but, CTA. Not tachypneic, no conversational dyspnea, able to speak in full sentences, no accessory muscle use. Effort and Inspection: able to speak in complete sentences Cardio regular rate, regular rhythm, S1 normal heart sound, S2 normal heart sound, no murmurs, no rub and no gallops Cardio Narrative: HR is increased with exertion into the low 100's. It is regular. After she rests a few minutes the HR comes down into the 70's. she is very deconditioned. GI normal to inspection, nondistended, normoactive bowel sounds, soft to palpation, non-tender and non-distended GI Narrative: obese, soft, ND, NT normal BS's, soft Extremity no clubbing, cyanosis or edema and no calf tenderness Extremity Narrative: She has edema of the LE's. she needs compression and better elevation than just putting her feet on a step when sitting in the chair. Skin Skin Narrative: The fissure in the skin fold on the back is still open and is macerated. It is very difficult to keep this dry because it is in a skin fold and she sweats. Rashes: no rashes Wound Narrative: Neuro oriented x3, CN's II-XII intact bilaterally and moves all extremities Neuro Narrative: generalized weakness and deconditioning but, when I retested her today she is weaker on the R side. She has a + Phalen's on the R Psych Psych Narrative: Has a lot of anxiety about being discharged before she thinks she is ready. She seems more confident than she did at admission. Assessment & Plan Assessment/Plan (1) Debility: (2) Iron deficiency anemia due to chronic blood loss: (3) IBS (irritable bowel syndrome): (4) MIRIAM (acute kidney injury): (5) Super obesity: (6) MIGUEL (obstructive sleep apnea): (7) Anxiety: (8) Carpal tunnel syndrome of right wrist: PLAN: 1. Increase the Effexor to 150 mg p.o. daily 2. Continue therapy 3. I do suspect that she may have had an ischemic stroke during her episode with Covid. This may have occurred while she was on the ventilator. I suspect this is the cause of the right side weakness. 4. Will ask physical therapy/Occupational Therapy if she needs to be measured for a cock up splint. 5. She is agreeable to seeing a therapist at discharge. Visit Charges Inpatient E&M: 92973 Subs Hosp L2
[2021-07-22 19:26] VITALS: BP 118/90; PULSE 81; RESP 18; TEMP 36.4; O2SAT 98
[2021-07-22 22:00] VITALS: PULSE 81; RESP 18
[2021-07-22] MEDS: traZODone 100 MG Tablet PO (22:40)
[2021-07-22] MEDS: MELATONIN 3 MG TABLET PO (22:41)
[2021-07-22] MEDS: Collagenase 30gm Tube 1 APPLIC TOPICAL (22:42)
[2021-07-22 23:05] VITALS: PULSE 84; RESP 12; RESP 19; O2SAT 95
[2021-07-23 03:45] VITALS: PULSE 83; RESP 12; RESP 18; O2SAT 94
[2021-07-23] MEDS: Arthritis Pain Compound 60 CLICK TUBE TOPICAL ×2 (06:41→20:58)
[2021-07-23] MEDS: Nystatin Powder 15gm Bottle 1 APPLIC TOPICAL ×2 (06:41→20:59)
[2021-07-23] MEDS: Pantoprazole Sodium 40 MG Tablet PO (06:41)
[2021-07-23 08:44] VITALS: BP 137/60; PULSE 73; RESP 16; TEMP 36.4; O2SAT 95
[2021-07-23] MEDS: Juven (unflavored) Packet 1 PACKET PO ×2 (09:13→17:15)
[2021-07-23] MEDS: Venlafaxine XR 75 MG Capsule PO (09:13)
[2021-07-23] MEDS: Calcium Carbonate 500 MG Tablet PO ×2 (09:13→17:15)
[2021-07-23] MEDS: Aspirin 81 MG TAB.CHEW PO (09:13)
[2021-07-23] MEDS: Cholecalciferol (VIT D3) 25 MCG TABLET (1,000 UNITS) 50 MCG PO (09:14)
[2021-07-23] MEDS: guaiFENesin 600 MG Tablet PO ×2 (09:14→20:57)
[2021-07-23] MEDS: Fluticasone 0.05% 1 SPRAY NASAL.SRY 2 SPRAY NASAL ×2 (09:14→20:58)
[2021-07-23] MEDS: Enoxaparin 40 MG/0.4 ML Syringe SC ×2 (09:14→20:58)
[2021-07-23] MEDS: Collagenase 30gm Tube 1 APPLIC TOPICAL (09:14)
[2021-07-23] MEDS: Menthol/Lanolin/Calamine/Znox 113 GM Tube 1 APPLIC TOPICAL ×2 (09:14→20:59)
[2021-07-23] MEDS: Acetaminophen 500 MG Tablet 1000 MG PO ×2 (13:29→21:10)
[2021-07-23] MEDS: Ferrous Sulfate 325 MG Tablet PO (13:29)
[2021-07-23] MEDS: Ascorbic Acid 500 MG Tablet PO (13:29)
[2021-07-23] MEDS: Magnesium Chloride 64 MG Delay Rel.Tablet 128 MG PO (17:15)
[2021-07-23 19:43] VITALS: BP 165/76; PULSE 88; RESP 20; TEMP 36.4; O2SAT 94
[2021-07-23] MEDS: traZODone 100 MG Tablet PO (20:57)
[2021-07-23] MEDS: MELATONIN 3 MG TABLET PO (20:57)
[2021-07-23 21:13] VITALS: BP 123/69
[2021-07-23 22:45] VITALS: PULSE 75; RESP 12; RESP 17; O2SAT 95
[2021-07-24 02:30] VITALS: PULSE 73; RESP 12; RESP 20; O2SAT 95
[2021-07-24] MEDS: Arthritis Pain Compound 60 CLICK TUBE TOPICAL ×2 (05:44→20:38)
[2021-07-24] MEDS: Nystatin Powder 15gm Bottle 1 APPLIC TOPICAL ×2 (05:44→20:42)
[2021-07-24] MEDS: Pantoprazole Sodium 40 MG Tablet PO (05:44)
[2021-07-24 07:49] VITALS: BP 124/74; PULSE 71; RESP 20; TEMP 36.3; O2SAT 98
[2021-07-24] MEDS: Calcium Carbonate 500 MG Tablet PO ×2 (08:40→16:47)
[2021-07-24] MEDS: Cholecalciferol (VIT D3) 25 MCG TABLET (1,000 UNITS) 50 MCG PO (08:40)
[2021-07-24] MEDS: Juven (unflavored) Packet 1 PACKET PO ×2 (08:40→16:47)
[2021-07-24] MEDS: Venlafaxine XR 150 MG Capsule PO (08:40)
[2021-07-24] MEDS: Aspirin 81 MG TAB.CHEW PO (08:40)
[2021-07-24] MEDS: guaiFENesin 600 MG Tablet PO ×2 (08:40→20:42)
[2021-07-24] MEDS: Enoxaparin 40 MG/0.4 ML Syringe SC ×2 (08:41→20:41)
[2021-07-24] MEDS: Collagenase 30gm Tube 1 APPLIC TOPICAL (08:41)
[2021-07-24] MEDS: Menthol/Lanolin/Calamine/Znox 113 GM Tube 1 APPLIC TOPICAL ×2 (08:49→20:40)
[2021-07-24] MEDS: Fluticasone 0.05% 1 SPRAY NASAL.SRY 2 SPRAY NASAL ×2 (08:51→20:41)
[2021-07-24] MEDS: Acetaminophen 500 MG Tablet 1000 MG PO (11:38)
[2021-07-24] MEDS: Ascorbic Acid 500 MG Tablet PO (11:40)
[2021-07-24] MEDS: Ferrous Sulfate 325 MG Tablet PO (11:40)
[2021-07-24] MEDS: Magnesium Chloride 64 MG Delay Rel.Tablet 128 MG PO (16:47)
[2021-07-24 19:07] VITALS: BP 129/62; PULSE 95; RESP 18; TEMP 36.8; O2SAT 94
[2021-07-24] MEDS: traZODone 100 MG Tablet PO (20:40)
[2021-07-24] MEDS: MELATONIN 3 MG TABLET PO (20:42)
[2021-07-24 22:30] VITALS: PULSE 75; RESP 12; RESP 18; O2SAT 94
[2021-07-25] MEDS: Acetaminophen 500 MG Tablet 1000 MG PO ×2 (00:04→10:15)
[2021-07-25 02:09] VITALS: PULSE 72; RESP 12; RESP 19; O2SAT 96
[2021-07-25] MEDS: Arthritis Pain Compound 60 CLICK TUBE TOPICAL ×2 (06:58→14:16)
[2021-07-25] MEDS: Nystatin Powder 15gm Bottle 1 APPLIC TOPICAL (06:59)
[2021-07-25] MEDS: Pantoprazole Sodium 40 MG Tablet PO (06:59)
[2021-07-25 08:38] VITALS: BP 118/57; PULSE 80; RESP 20; TEMP 36.6; O2SAT 94
[2021-07-25] MEDS: Calcium Carbonate 500 MG Tablet PO ×2 (08:39→15:55)
[2021-07-25] MEDS: Juven (unflavored) Packet 1 PACKET PO ×2 (08:39→15:55)
[2021-07-25] MEDS: Fluticasone 0.05% 1 SPRAY NASAL.SRY 2 SPRAY NASAL (08:39)
[2021-07-25] MEDS: Aspirin 81 MG TAB.CHEW PO (08:39)
[2021-07-25] MEDS: Venlafaxine XR 150 MG Capsule PO (08:39)
[2021-07-25] MEDS: guaiFENesin 600 MG Tablet PO (08:40)
[2021-07-25] MEDS: Enoxaparin 40 MG/0.4 ML Syringe SC (08:40)
[2021-07-25] MEDS: Cholecalciferol (VIT D3) 25 MCG TABLET (1,000 UNITS) 50 MCG PO (08:40)
[2021-07-25] MEDS: Collagenase 30gm Tube 1 APPLIC TOPICAL (08:49)
[2021-07-25] MEDS: Menthol/Lanolin/Calamine/Znox 113 GM Tube 1 APPLIC TOPICAL (08:49)
--- NOTE | 2021-07-25 08:53 | PCM.PN.BLA ---
Progress Note Afebrile VSS Maintaining appropriate oxygen saturation on RA Oral intake is good She has lost 16 pounds since admission to rehab but, has hit a plateau. Executive Chef Assistant recommending [id number] calories a day. Discussed with nursing - no problems that need addressed Reviewed the PT/OT notes Medication list reviewed. No problem with the increase in the Effexor to 150 mg so far. Sleeping well at night. Lungs are clear.......will discuss with her making the inhalers and Mucinex PRN. She is not taking Senna or Miralax so will DC. Physical Exam Narrative alert, oriented X 3. Pleasant and motivated to get better. Wants to stay until she feels she is ready but, I once again explained it is not my decision.....it is up to the insurance company when she will need to be discharged. Const alert, oriented x3 and no apparent distress Constitutional Narrative: frustrated. General Appearance: cooperative, comfortable, well kempt and well developed HEENT moist oral mucous membranes Resp normal respiratory effort, normal air movement, no use of accessory muscles and clear to auscultation bilaterally Resp Narrative: diminished BS's but, CTA. Not tachypneic, no conversational dyspnea, able to speak in full sentences, no accessory muscle use when she is at rest and sitting in the recliner or lying in bed. No orthopnea. She gets very SOB with exertionn and has conversational dyspnea. Effort and Inspection: able to speak in complete sentences Cardio regular rate, regular rhythm, no murmurs, no rub and no gallops Cardio Narrative: The HR increases with exertion. Heart sounds are distant - more likely than not due to body habitus GI normal to inspection, nondistended, normoactive bowel sounds, soft to palpation, non-tender and non-distended GI Narrative: She never complains to me about abd pain now or diarrhea. Extremity no calf tenderness Extremity Narrative: some mild peripheral edema and when the legs are dependent she gets purple discoloration due to venous HTN. Skin Skin Narrative: The fissure in the skin fold on the back is still open and is macerated. It is very difficult to keep this dry because it is in a skin fold and she sweats. Rashes: no rashes Wound Narrative: Neuro oriented x3, CN's II-XII intact bilaterally and moves all extremities Neuro Narrative: generalized weakness and deconditioning but, when I retested her today she is weaker on the R side. She has a + Phalen's on the R Motor Exam: strength 5/5 throughout Psych Psych Narrative: Has a lot of anxiety about being discharged before she thinks she is ready. She seems more confident than she did at admission. Assessment & Plan Assessment/Plan (1) Depression: (2) Dyspnea on exertion: (3) Debility: PLAN: 1. Recheck a BMP, HH and a Mag in the AM 2. Decrease calories to 1800 3. Continue therapy 4. DC senna and Miralax 5. Check a TSH and a T4 in the AM Visit Charges Inpatient E&M: 84392 Subs Hosp L2
[2021-07-25] MEDS: Ferrous Sulfate 325 MG Tablet PO (12:09)
[2021-07-25] MEDS: Ascorbic Acid 500 MG Tablet PO (12:09)
[2021-07-25] MEDS: Magnesium Chloride 64 MG Delay Rel.Tablet 128 MG PO (15:55)
--- NOTE | 2021-07-25 16:40 | CASEMGMT ---
Inflated Pad Buffer Pt updated that insurance approved more time with next review on 07/30. [place]
[2021-07-25 19:51] VITALS: BP 119/73; PULSE 97; RESP 18; TEMP 36.6; O2SAT 94
[2021-07-26] MEDS: Nystatin Powder 15gm Bottle 1 APPLIC TOPICAL ×3 (00:09→20:17)
[2021-07-26] MEDS: Arthritis Pain Compound 60 CLICK TUBE TOPICAL ×4 (00:09→20:20)
[2021-07-26] MEDS: guaiFENesin 600 MG Tablet PO ×3 (00:10→20:17)
[2021-07-26] MEDS: Fluticasone 0.05% 1 SPRAY NASAL.SRY 2 SPRAY NASAL ×3 (00:11→20:19)
[2021-07-26] MEDS: Enoxaparin 40 MG/0.4 ML Syringe SC ×3 (00:11→20:19)
[2021-07-26] MEDS: traZODone 100 MG Tablet PO ×2 (00:11→20:20)
[2021-07-26] MEDS: MELATONIN 3 MG TABLET PO ×2 (00:12→20:19)
[2021-07-26] MEDS: Menthol/Lanolin/Calamine/Znox 113 GM Tube 1 APPLIC TOPICAL ×3 (00:13→20:21)
[2021-07-26] MEDS: Acetaminophen 500 MG Tablet 1000 MG PO ×3 (00:15→20:20)
[2021-07-26 00:19] VITALS: PULSE 82; RESP 12; O2SAT 95
[2021-07-26 04:25] VITALS: PULSE 86; RESP 12; RESP 18; O2SAT 94
[2021-07-26 05:53] LABS: Hematocrit 27.8 % (37-47); Hemoglobin 8.5 g/dL (12.0-15.0)
[2021-07-26] MEDS: Pantoprazole Sodium 40 MG Tablet PO (06:41)
[2021-07-26 07:17] LABS: Anion Gap 5 (5-15); BUN 26 mg/dL (7-18); BUN/Creat Ratio 38.7 RATIO (10-20); Calcium,Total 8.9 mg/dL (8.5-10.1); Chloride 107 mmol/L (98-107); Creatinine, Serum 0.67 mg/dL (0.55-1.02); EST Glomerular Filtration Rate 97 mL/min (>60); Est Glom Filt Rate - Afr Amer 118 mL/min (>60); Estimated Creatinine Clearance 87.38 ml/min; Glucose 99 mg/dL (74-106); Potassium 3.9 mmol/L (3.5-5.1); Sodium Level 140 mmol/L (136-145); T4 Free Direct 1.03 ng/dL (0.76-1.46); Thyroid Stim Hormone (TSH) 1.96 uIU/mL (0.358-3.74)
[2021-07-26 08:07] VITALS: BP 113/59; PULSE 63; RESP 18; TEMP 36.6; O2SAT 97
[2021-07-26] MEDS: Calcium Carbonate 500 MG Tablet PO ×2 (09:20→16:42)
[2021-07-26] MEDS: Juven (unflavored) Packet 1 PACKET PO ×2 (09:20→16:41)
[2021-07-26] MEDS: Aspirin 81 MG TAB.CHEW PO (09:20)
[2021-07-26] MEDS: Venlafaxine XR 150 MG Capsule PO (09:20)
[2021-07-26] MEDS: Cholecalciferol (VIT D3) 25 MCG TABLET (1,000 UNITS) 50 MCG PO (09:21)
[2021-07-26] MEDS: Collagenase 30gm Tube 1 APPLIC TOPICAL ×2 (09:30→20:22)
--- NOTE | 2021-07-26 11:10 | PCM.PN.BLA ---
Progress Note Afebrile Vital signs stable-blood pressure is well controlled Maintaining appropriate saturation on room air while awake. Good oral intake All lab was personally reviewed. Hemoglobin is 8.5 today, down from 8.9 at admission. MCV is only 80. She is on ferrous sulfate and vitamin C. Stool heme negative. The BUN is 26 and the creatinine is 0.67 with a BUN/creatinine ratio of 38.7. TSH and T4 are within normal limits. Magnesium is normal and calcium is also normal. The next insurance update is 07/30/21. I observed Jenna advancing herself in the WC today and she gets very SOB. She also gets very SOB when ambulating with the rollator. I suspect this is due to a number of things such as weight, de-conditioning, COVID. Her lungs are CTA. Her weight is not really changing over the past 10 days. Calories were decreased to 1800 yesterday. she is upset that her wt went up 2 lbs since last week. I told her not to focus on a number. Her face is thinner and the skin folds are not as deep. I also told her that muscle weighs more than fat and sometimes your size decreases but, not the weight and that sometimes you just plateau. she is trying not to eat everything on her plate and save some vegetables and fruits for a snack. she is moving much better when standing up and grabbing the walker. Physical Exam Const alert, oriented x3 and no apparent distress Constitutional Narrative: frustrated. General Appearance: cooperative, well kempt and well developed Resp normal respiratory effort, normal air movement, no use of accessory muscles and clear to auscultation bilaterally Effort and Inspection: able to speak in complete sentences Cardio regular rate, regular rhythm and no gallops Cardio Narrative: The HR increases with exertion GI normal to inspection, nondistended, normoactive bowel sounds GI Narrative: She never complains to me about abd pain now or diarrhea. Extremity Extremity Narrative: some mild peripheral edema Skin Rashes: no rashes Assessment & Plan Assessment/Plan (1) Depression: (2) Dyspnea on exertion: (3) Debility: PLAN: 1. Get a PA and Lateral CXR 2. check a BNP 3. she is scheduled to have an ECHO today. 4. I recommended she has PFT's and a sleep study post discharge. 5. check iron studies Visit Charges Inpatient E&M: 52961 Subs Hosp L2
[2021-07-26 11:55] LABS: BNP,B-Type NATRIURETIC PEPTIDE 20.9 pg/mL (0-100)
[2021-07-26 12:11] LABS: Ferritin 101 ng/mL (8-252); Iron 56 ug/dL (50-170); Iron Binding Capacity,Total 274 ug/dL (250-450); PERCENT IRON SATURATION 20.4 % (15.0-55.0)
[2021-07-26] MEDS: Ascorbic Acid 500 MG Tablet PO (13:25)
[2021-07-26] MEDS: Ferrous Sulfate 325 MG Tablet PO (13:25)
--- NOTE | 2021-07-26 13:35 | RAD_ITS ---
STUDY: X-RAY CHEST REASON FOR EXAM: Female, 51 years old. dyspnea TECHNIQUE: PA and lateral views of the chest. COMPARISON: None. FINDINGS: Alveolar opacity in both lung bases consistent with bibasilar atelectasis or pneumonia. There is no demonstrated pleural abnormality. Normal size heart. Normal mediastinum and annelise. Normal visualized pulmonary arteries. Normal visualized aortic arch and descending thoracic aorta. Normal visualized thoracic spine. Normal visualized ribs, clavicles, and shoulders. There is no demonstrated abnormality of the visualized soft tissue structures of the upper abdomen. RAD/Chest PA and Lateral IMPRESSION: Bibasilar atelectasis or pneumonia. Electronically Signed: Reese Fonseca MD at 16:49 EDT Tel , Service support ,
--- NOTE | 2021-07-26 14:09 | CASEMGMT ---
Social Work SW met with pt for support. Pt open to conversation and talks openly about frustration with weight and desire to loose weight. Pt tearful throughout conversation. SW spoke with pt about seeing a counselor after hospitalization and pt is agreeable. List of area counselors provided and SW encouraged pt review list and make an phone call to the agency she would like to use. SW also explained [facility] program. Pt stating that she knows she needs counseling and is planning on reviewing list and making an appointment. SW assisted pt in completing [place]CP[place] naming her sister Maggie Soto as agent. Copy placed on chart and original returned to pt. Pt uncertain if she wanted to complete Living Will at this time. SW left information for pt to review and pt aware SW can assist if she would like to complete. [place]
[2021-07-26] MEDS: Magnesium Chloride 64 MG Delay Rel.Tablet 128 MG PO (16:41)
[2021-07-26 18:58] VITALS: BP 121/64; PULSE 80; RESP 16; TEMP 36.6; O2SAT 97
[2021-07-26 23:30] VITALS: PULSE 75; RESP 12; RESP 16; O2SAT 95
[2021-07-27 04:15] VITALS: PULSE 73; RESP 12; RESP 16; O2SAT 95
[2021-07-27 07:07] VITALS: BP 134/74; PULSE 76; RESP 18; TEMP 36.7; O2SAT 98
[2021-07-27] MEDS: Pantoprazole Sodium 40 MG Tablet PO (07:27)
[2021-07-27] MEDS: Arthritis Pain Compound 60 CLICK TUBE TOPICAL ×3 (07:27→21:40)
[2021-07-27] MEDS: Cholecalciferol (VIT D3) 25 MCG TABLET (1,000 UNITS) 50 MCG PO (08:21)
[2021-07-27] MEDS: guaiFENesin 600 MG Tablet PO ×2 (08:21→21:38)
[2021-07-27] MEDS: Aspirin 81 MG TAB.CHEW PO (08:21)
[2021-07-27] MEDS: Venlafaxine XR 150 MG Capsule PO (08:21)
[2021-07-27] MEDS: Calcium Carbonate 500 MG Tablet PO (08:22)
[2021-07-27] MEDS: Fluticasone 0.05% 1 SPRAY NASAL.SRY 2 SPRAY NASAL ×2 (08:22→21:38)
[2021-07-27] MEDS: Juven (unflavored) Packet 1 PACKET PO ×2 (08:22→16:43)
[2021-07-27] MEDS: Enoxaparin 40 MG/0.4 ML Syringe SC ×2 (08:25→21:38)
[2021-07-27] MEDS: Menthol/Lanolin/Calamine/Znox 113 GM Tube 1 APPLIC TOPICAL ×2 (08:26→21:40)
[2021-07-27] MEDS: Ferrous Sulfate 325 MG Tablet PO (12:11)
[2021-07-27] MEDS: Ascorbic Acid 500 MG Tablet PO (12:11)
[2021-07-27] MEDS: Magnesium Chloride 64 MG Delay Rel.Tablet 128 MG PO (13:42)
[2021-07-27] MEDS: traZODone 100 MG Tablet PO (21:37)
[2021-07-27] MEDS: MELATONIN 3 MG TABLET PO (21:38)
[2021-07-27] MEDS: Nystatin Powder 15gm Bottle 1 APPLIC TOPICAL (21:39)
[2021-07-27 21:51] VITALS: BP 138/84; PULSE 90; RESP 16; TEMP 36.9; O2SAT 96
[2021-07-27 22:00] VITALS: PULSE 90; RESP 16
[2021-07-27 23:30] VITALS: PULSE 76; RESP 12; RESP 18; O2SAT 94
[2021-07-28 03:28] VITALS: PULSE 79; RESP 12; RESP 15; O2SAT 95
[2021-07-28] MEDS: Arthritis Pain Compound 60 CLICK TUBE TOPICAL ×3 (06:13→21:35)
[2021-07-28] MEDS: Pantoprazole Sodium 40 MG Tablet PO (06:13)
[2021-07-28] MEDS: Nystatin Powder 15gm Bottle 1 APPLIC TOPICAL ×2 (06:13→21:35)
[2021-07-28 07:49] VITALS: BP 131/57; PULSE 83; RESP 16; TEMP 36.4; O2SAT 96
[2021-07-28] MEDS: Fluticasone 0.05% 1 SPRAY NASAL.SRY 2 SPRAY NASAL ×2 (08:22→21:37)
[2021-07-28] MEDS: Calcium Carbonate 500 MG Tablet PO ×2 (08:22→16:19)
[2021-07-28] MEDS: Juven (unflavored) Packet 1 PACKET PO ×2 (08:22→16:20)
[2021-07-28] MEDS: guaiFENesin 600 MG Tablet PO ×2 (08:23→21:36)
[2021-07-28] MEDS: Venlafaxine XR 150 MG Capsule PO (08:23)
[2021-07-28] MEDS: Aspirin 81 MG TAB.CHEW PO (08:24)
[2021-07-28] MEDS: Cholecalciferol (VIT D3) 25 MCG TABLET (1,000 UNITS) 50 MCG PO (08:24)
[2021-07-28] MEDS: Enoxaparin 40 MG/0.4 ML Syringe SC ×2 (08:26→21:37)
[2021-07-28] MEDS: Menthol/Lanolin/Calamine/Znox 113 GM Tube 1 APPLIC TOPICAL ×2 (08:32→21:46)
[2021-07-28] MEDS: Ascorbic Acid 500 MG Tablet PO (12:27)
[2021-07-28] MEDS: Collagenase 30gm Tube 1 APPLIC TOPICAL (12:28)
[2021-07-28] MEDS: Ferrous Sulfate 325 MG Tablet PO (12:28)
[2021-07-28] MEDS: Magnesium Chloride 64 MG Delay Rel.Tablet 128 MG PO (13:35)
[2021-07-28 19:15] VITALS: BP 145/84; PULSE 93; RESP 18; TEMP 36.5; O2SAT 97
[2021-07-28] MEDS: Acetaminophen 500 MG Tablet 1000 MG PO (20:09)
[2021-07-28] MEDS: traZODone 100 MG Tablet PO (21:36)
[2021-07-28 22:00] VITALS: PULSE 78; RESP 16
[2021-07-29 00:58] VITALS: PULSE 76; RESP 12; RESP 16; O2SAT 95
[2021-07-29] MEDS: Arthritis Pain Compound 60 CLICK TUBE TOPICAL ×3 (06:51→20:41)
[2021-07-29] MEDS: Pantoprazole Sodium 40 MG Tablet PO (06:51)
[2021-07-29] MEDS: Nystatin Powder 15gm Bottle 1 APPLIC TOPICAL ×2 (06:52→20:43)
[2021-07-29 08:13] VITALS: BP 124/63; PULSE 83; RESP 18; TEMP 36.4; O2SAT 95
[2021-07-29] MEDS: Juven (unflavored) Packet 1 PACKET PO ×2 (08:29→16:23)
[2021-07-29] MEDS: Aspirin 81 MG TAB.CHEW PO (08:29)
[2021-07-29] MEDS: Calcium Carbonate 500 MG Tablet PO ×2 (08:29→16:23)
[2021-07-29] MEDS: Venlafaxine XR 150 MG Capsule PO (08:29)
[2021-07-29] MEDS: Fluticasone 0.05% 1 SPRAY NASAL.SRY 2 SPRAY NASAL ×2 (08:29→20:41)
[2021-07-29] MEDS: Cholecalciferol (VIT D3) 25 MCG TABLET (1,000 UNITS) 50 MCG PO (08:30)
[2021-07-29] MEDS: Enoxaparin 40 MG/0.4 ML Syringe SC ×2 (08:30→20:42)
[2021-07-29] MEDS: guaiFENesin 600 MG Tablet PO ×2 (08:30→20:43)
[2021-07-29] MEDS: Menthol/Lanolin/Calamine/Znox 113 GM Tube 1 APPLIC TOPICAL ×2 (08:37→20:41)
[2021-07-29] MEDS: Ferrous Sulfate 325 MG Tablet PO (12:22)
[2021-07-29] MEDS: Ascorbic Acid 500 MG Tablet PO (12:22)
--- NOTE | 2021-07-29 15:45 | PCM.PN.BLA ---
Progress Note Jenna was seen on team rounds today. Her Sister Maggie participated by phone. Afebrile VSS Maintaining appropriate oxygen saturation on RA at rest. She desaturated to 86% while ambulating and became very tachypneic. Oral intake is good Discussed with nursing - no problems that need addressed. Reviewed the PT/OT notes Medication list reviewed. Sleeping well. No abd pain and denies nausea. No diarrhea. Denies chest pain and calf pain. She tells the TEAM that this week she feels she is ready to go home. Last week she did not feel ready. she has a more positive attitude now and she is working hard in therapy. Strength in extremities has increased significantly. Physical Exam Const alert, oriented x3 and no apparent distress Chest Chest: symmetrical chest wall rise Resp clear to auscultation bilaterally Resp Narrative: diminished in the base but, I do not hear crackles XRAY per my review shows increased interstitial markings in the bases which I suspect may be scarring due to the recent COVID pneumonia followed by evin pneumonia. Cardio regular rate, regular rhythm and no murmurs Cardio Narrative: HR increases and RR increases 15-20 beats after walking 50 ft. Assessment & Plan Assessment/Plan (1) Dyspnea on exertion: (2) Abnormal CXR (chest x-ray): (3) Hypoxemia requiring supplemental oxygen: (4) Pneumonia due to 2019 novel coronavirus: (5) Candidal pneumonia: PLAN: 1. I notified the Jenna will need O2 for home. 2. Maggie is going to bring in the CPAP machine Jenna uses at home and we will get an overnight trending pulse ox using her machine to see if she needs oxygen bleed in at night until she can get a new sleep study. Visit Charges Inpatient E&M: 77248 Subs Hosp L2
--- NOTE | 2021-07-29 15:58 | CASEMGMT ---
Social Work Team meeting held today with pt present and her sister Maggie on conference call. Pt is receiving PT/OT and continuing to make functional gains with therapy. Team feels pt will likely be ready for discharge on Thursday 08/02 and pt is agreeable and feels she is ready to return home at that time. Pt will need home health care PT/OT/SN and pt is agreeable to this. List of [facility] providers including quality and resource use data and consistent with the patient's preferred geographic region, medical needs and insurance network provided. Pt will also need home oxygen at time of discharge. Pt next insurance update is 07/30/21 with continued stay not guaranteed. SW will follow for d/c planning. [place]
--- NOTE | 2021-07-29 15:59 | WOUNDNOTE ---
wound photo: mid lower back
[2021-07-29] MEDS: Magnesium Chloride 64 MG Delay Rel.Tablet 128 MG PO (16:23)
[2021-07-29] MEDS: Collagenase 30gm Tube 1 APPLIC TOPICAL (16:24)
[2021-07-29] MEDS: traZODone 100 MG Tablet PO (20:41)
[2021-07-29] MEDS: MELATONIN 3 MG TABLET PO (20:42)
[2021-07-29 21:03] VITALS: BP 128/81; PULSE 74; RESP 18; TEMP 36.5; O2SAT 99
[2021-07-29 21:22] VITALS: PULSE 72; RESP 12; RESP 16; O2SAT 97
[2021-07-30 01:42] VITALS: PULSE 70; PULSE 74; RESP 12; RESP 18; RESP 22; O2SAT 96; O2SAT 99
[2021-07-30] MEDS: Nystatin Powder 15gm Bottle 1 APPLIC TOPICAL ×2 (05:04→21:26)
[2021-07-30] MEDS: Arthritis Pain Compound 60 CLICK TUBE TOPICAL ×3 (05:04→21:28)
[2021-07-30] MEDS: Pantoprazole Sodium 40 MG Tablet PO (05:05)
[2021-07-30 05:43] VITALS: PULSE 71; RESP 12; RESP 18; O2SAT 93
[2021-07-30 07:17] VITALS: BP 109/72; PULSE 69; RESP 14; TEMP 36.1; O2SAT 96
--- NOTE | 2021-07-30 07:17 | CPS ---
Patient's own BiPAP machine settings are 14/10 with 1L bleed in. Overnight pulse ox trend tonight to be done on patient's own BiPAP
--- NOTE | 2021-07-30 07:21 | SLEEP ---
I was asked to evaluate the patient's home PAP machine and verify settings. Her machine is a Respironics One BiPAP set at 14/10 cmH2O. It has a 20 minute ramp time with a starting pressure of 9/5 cmH2O. She has been using a medium F&P Eson nasal mask and heated wire tubing. I gave her a medium F&P Eson II and standard tubing to replace her disposable supplies until she has a BiPAP re-titration study next Thursday night. I put an oxygen adapter inline for her 1LPM oxygen bleed in tonight. She currently does not have oxygen at home and will need qualifying testing if not already completed. She uses [facility] in [place] for supply replacement. I am going to update DeRev on supplies needed at home and attempt to have those supplies delivered with her home oxygen. I believe she wants [place] continue [place] [facility] [place] since [place]. An overnight pulse ox was attempted last night but the patient was still using the hospital's BiPAP machine so the overnight pulse ox was canceled. I spoke with Keeley in Respiratory and she is going to relay to decorating equipment setter the need for an overnight pulse ox tonight while the patient wears her home BiPAP with a 1LPM bleed in. The patient reports that she sleeps prone as much as possible at home and she wants to attempt to do that tonight while wearing her home unit. I advised her that it may not be a good idea to attempt that in the hospital bed but she could lay the head of the bed flat and sleep on her side as she would at home. It would be beneficial if the patient could sleep sitting up as much as possible but the patient isn't comfortable sleeping upright. If she is going to sleep flat at home, then we should attempt that here or as close to it as possible.
[2021-07-30] MEDS: Fluticasone 0.05% 1 SPRAY NASAL.SRY 2 SPRAY NASAL ×2 (08:25→21:27)
[2021-07-30] MEDS: Calcium Carbonate 500 MG Tablet PO ×2 (08:26→16:22)
[2021-07-30] MEDS: Juven (unflavored) Packet 1 PACKET PO ×2 (08:26→16:22)
[2021-07-30] MEDS: Venlafaxine XR 150 MG Capsule PO (08:27)
[2021-07-30] MEDS: Aspirin 81 MG TAB.CHEW PO (08:27)
[2021-07-30] MEDS: Cholecalciferol (VIT D3) 25 MCG TABLET (1,000 UNITS) 50 MCG PO (08:27)
[2021-07-30] MEDS: guaiFENesin 600 MG Tablet PO ×2 (08:27→21:27)
[2021-07-30] MEDS: Enoxaparin 40 MG/0.4 ML Syringe SC ×2 (08:27→21:27)
[2021-07-30] MEDS: Collagenase 30gm Tube 1 APPLIC TOPICAL (08:33)
[2021-07-30] MEDS: Acetaminophen 500 MG Tablet 1000 MG PO (08:35)
[2021-07-30] MEDS: Ascorbic Acid 500 MG Tablet PO (12:10)
[2021-07-30] MEDS: Ferrous Sulfate 325 MG Tablet PO (12:10)
[2021-07-30] MEDS: Magnesium Chloride 64 MG Delay Rel.Tablet 128 MG PO (16:21)
[2021-07-30 19:34] VITALS: BP 125/66; PULSE 76; RESP 16; TEMP 36.8; O2SAT 96
[2021-07-30] MEDS: traZODone 100 MG Tablet PO (21:32)
[2021-07-30] MEDS: MELATONIN 3 MG TABLET PO (21:32)
[2021-07-30] MEDS: Menthol/Lanolin/Calamine/Znox 113 GM Tube 1 APPLIC TOPICAL (21:32)
[2021-07-30 22:13] VITALS: PULSE 78; O2SAT 94
[2021-07-31] MEDS: Arthritis Pain Compound 60 CLICK TUBE TOPICAL ×3 (06:58→20:37)
[2021-07-31] MEDS: Pantoprazole Sodium 40 MG Tablet PO (06:58)
[2021-07-31] MEDS: Juven (unflavored) Packet 1 PACKET PO ×2 (08:00→17:43)
[2021-07-31] MEDS: Calcium Carbonate 500 MG Tablet PO ×2 (08:03→17:43)
[2021-07-31] MEDS: Fluticasone 0.05% 1 SPRAY NASAL.SRY 2 SPRAY NASAL ×2 (08:03→20:36)
[2021-07-31] MEDS: Aspirin 81 MG TAB.CHEW PO (08:03)
[2021-07-31] MEDS: Venlafaxine XR 150 MG Capsule PO (08:03)
[2021-07-31] MEDS: Enoxaparin 40 MG/0.4 ML Syringe SC ×2 (08:04→20:36)
[2021-07-31] MEDS: guaiFENesin 600 MG Tablet PO ×2 (08:04→20:36)
[2021-07-31] MEDS: Cholecalciferol (VIT D3) 25 MCG TABLET (1,000 UNITS) 50 MCG PO (08:04)
[2021-07-31] MEDS: Menthol/Lanolin/Calamine/Znox 113 GM Tube 1 APPLIC TOPICAL ×2 (08:06→20:38)
[2021-07-31] MEDS: Collagenase 30gm Tube 1 APPLIC TOPICAL ×2 (08:10→21:30)
[2021-07-31] MEDS: Acetaminophen 500 MG Tablet 1000 MG PO (09:22)
[2021-07-31 10:00] VITALS: BP 126/89; PULSE 93; RESP 18; TEMP 36.2; O2SAT 95
--- NOTE | 2021-07-31 11:55 | PCM.PN.BLA ---
Progress Note Afebrile VSS Maintaining appropriate oxygen saturation on RA Oral intake is good Discussed with nursing - no problems that need addressed. Reviewed the PT/OT notes - She is progressing very well and Jenna feels like she is ready to go home. She is scheduled to be discharged this Thursday. She has been scheduled for a sleep study and a follow up appt with Dr. Keys. She will also need PFT's and we are trying to arrange this prior to her appt with Dr. Keys. Medication list reviewed. Jenna tells me that she did not sleep well last night using her own BIPAP machine. the overnight trending pulse ox shows for 14 minutes she was hypoxic. there are also periods at night when her HR went into the 130's and I wonder if she is having some AF? She denies CP, SOB at rest. She is not coughing. No calf pain. Has not been wearing compression on her legs. Physical Exam Const alert, oriented x3 and no apparent distress Constitutional Narrative: looks rather sleepy today General Appearance: cooperative Resp clear to auscultation bilaterally Cardio regular rate, regular rhythm and no murmurs GI normal to inspection, nondistended, normoactive bowel sounds Extremity no calf tenderness Extremity Narrative: There is edema of the LE's and when the legs are dependent there is venous hypertension and they look purple red to her and I explained this is due to venous insufficiency when dependent and the way to control this is to provide compression. Assessment & Plan Assessment/Plan (1) Abnormal CXR (chest x-ray): PLAN: She has appt to follow up with Dr. Keys on 09/24. (2) Depression: PLAN: Doing much better on Effexor. She is motivated, sleeping well and is not having problems with IBS any longer. Will continue at [facility] (3) Dyspnea on exertion: PLAN: ABN CXR, 86% on RA when ambulating today and 84% when ambulating with a mask on. Trying to schedule PFT's in addition to the sllip study so that Dr. Keys will have both to review at [facility]'s appt in August. (4) Hypoxemia requiring supplemental oxygen: PLAN: Home O2 arranged at 2 LPM with exertion and 2 LPM bleed in with BIPAP at night. (5) MIGUEL (obstructive sleep apnea): (6) Debility: PLAN: She is planning on hiring a instructor trainer canine service to help her with wt loss and exercise post DC. She will have home PT/OT and nurse at [facility]. Will continue with the Aquacel dressing daily for the decubitus ulcer on the back. She can follow up with me in the [facility] if she desires to follow the wound until it is healed. She will need a bariatric WC at [facility] for longer distances. She can only walk 5 -10 ft with a mask on when she leaves the house. The WC is on back order and will not be ready for a few weeks......in the mean time she is able to ambulate in her home with her rollator. Plan DC tomorrow. Visit Charges Inpatient E&M: 91546 Subs Hosp L2
[2021-07-31] MEDS: Ascorbic Acid 500 MG Tablet PO (12:18)
[2021-07-31] MEDS: Ferrous Sulfate 325 MG Tablet PO (12:18)
[2021-07-31] MEDS: Magnesium Chloride 64 MG Delay Rel.Tablet 128 MG PO (15:15)
[2021-07-31 19:36] VITALS: BP 127/59; PULSE 78; RESP 16; TEMP 36.6; O2SAT 96
[2021-07-31] MEDS: MELATONIN 3 MG TABLET PO (20:36)
[2021-07-31] MEDS: traZODone 100 MG Tablet PO (20:37)
[2021-08-01] MEDS: Arthritis Pain Compound 60 CLICK TUBE TOPICAL ×3 (05:46→22:02)
[2021-08-01] MEDS: Pantoprazole Sodium 40 MG Tablet PO (05:46)
[2021-08-01] MEDS: Acetaminophen 500 MG Tablet 1000 MG PO (07:12)
[2021-08-01 07:58] VITALS: BP 117/49; PULSE 70; RESP 20; TEMP 36.6; O2SAT 93
[2021-08-01] MEDS: Juven (unflavored) Packet 1 PACKET PO ×2 (08:41→17:09)
[2021-08-01] MEDS: Venlafaxine XR 150 MG Capsule PO (08:41)
[2021-08-01] MEDS: Aspirin 81 MG TAB.CHEW PO (08:41)
[2021-08-01] MEDS: Calcium Carbonate 500 MG Tablet PO ×2 (08:41→17:09)
[2021-08-01] MEDS: Fluticasone 0.05% 1 SPRAY NASAL.SRY 2 SPRAY NASAL ×2 (08:42→22:03)
[2021-08-01] MEDS: guaiFENesin 600 MG Tablet PO ×2 (08:42→22:04)
[2021-08-01] MEDS: Enoxaparin 40 MG/0.4 ML Syringe SC ×2 (08:42→22:03)
[2021-08-01] MEDS: Cholecalciferol (VIT D3) 25 MCG TABLET (1,000 UNITS) 50 MCG PO (08:43)
--- NOTE | 2021-08-01 10:46 | CASEMGMT ---
Social Work Referrals made for home health PT/OT/SN. [facility] unable to accept. Referral to [facility] and will await determination on acceptance. Referral faxed and phone call to [facility] for home oxygen and bariatric wheelchair. Will await determination if they can provide. PT updated on discharge planning. SW to continue. [place]
--- NOTE | 2021-08-01 12:18 | CASEMGMT ---
Social Work Return call from [email or web address] and they are able to accept pt with a start of care on Thursday08/03/21. They will visit 3x week and pt will need spouse to change dressings on the days [facility] is not there. Return all from [facility] and they are able to provide the home oxygen needed and will call pt to set up delivery time. They do not have a bariatric wheel chair. Call to [facility] and they could order a wheelchair but it would not be in for 2 weeks. Call to [facility] and they can order a chair and it will not be in for 2 weeks. Script for WC faxed to [facility]. Pt will be homebound for the next several weeks. WC is needed for longer distances. Pt made aware of all of the above. [place]
[2021-08-01] MEDS: Ascorbic Acid 500 MG Tablet PO (12:23)
[2021-08-01] MEDS: Ferrous Sulfate 325 MG Tablet PO (12:23)
--- NOTE | 2021-08-01 14:28 | PCM.DC ---
Discharge Instructions Diet Discharge Diet: 1800 Calorie Control Diet (consistent carbohydrate no added salt.) Activity Discharge Activity: Use Walker (or a rollator) and - (Do the exercises gven to you by the therapists at least one time a day. ) Return to work on:: 09/30/21 Weight Bearing Status: Full weight bearing Lifting Restrictions: 10 lbs Keep extremity elevated above heart level: Legs Dressing / Incision Call your doctor if your incision/area has: Continuous Slow Oozing, Sudden Increased Bleeding, Increased Pain/ Swelling, Increased Redness and Foul Smelling Discharge Call your doctor if you observe: Fever of 101 or Higher, Shortness of breath, Fainting spells, Chest pain, Calf discomfort and Uncontrolled pain Change Dressing in: 1 day Cleanse incision/area with: Soap & Water and Keep Dressing Clean & Dry Additional Dressing/Incision Instructions:: Change the dressing on the back every day. Follow Up Care Please Follow Up With: Lou Crews PA-C Test Results: Test results from this visit will be discussed in further detail at your follow-up appointment, if applicable. Pending Tests Upon Discharge: none Discharge Plan Admission Admit Date/Time: 07/03/21 18:56 Primary Reason for Your Visit: debility due to COVID 19 pneumonia with acute resp failure/MIRIAM/MRSA PNA. Attending Provider: Katherine Jonas Instructions Forms: Work / School Excuse Patient Instructions: Depression Affects Your Mind ..., What Can Cause Depression?, Counseling for Depression, Anxiety Disorders Tx Therapy, Signs of Addiction to Food ... Additional Instructions / Restrictions: 1. [facility] for PT/OT/SN 2. You have come a LONG way since you first came to rehab. BOTH mentally and physically. You are more confident and focused on getting healthy. You are a young women and you can get yourself in better shape and in a better frame of mind to stay healthy. Learning to set boundaries is SO important......it puts you in control of your life. Learning how to set boundaries is HARD, rosa if you have not been doing this for many years. I hope you are able to find a therapist you feel comfortable with to work out some of your issues. 3. Keep an open mind........keep bariatric surgery in the back of your mind as a possible option. Keep your options open. 4. You will need to see someone to make sure the wound on your back heals. I see patients in the wound care center here on Thursday afternoons. I would be happy to continue seeing you to take care of the wound. 5. Preventative health maintenance is very important. PAP's, mammograms, colonoscopies, vaccinations, access to a doctor to call if you get sick.......these are all important. These things save lives. 6. You will need to get a COVID vaccine 3 months after you got COVID. September 03 would be 3 months. You can still get another COVID variant even though you have already had COVID. Please protect yourself and your family. 7. I recommend you follow up with the [facility] program here at the hospital following discharge. It is run by the dieticians and they have helped a lot of people stay on track with their weight loss. 8. We need to get you into some good compression stockings to control the edema in your legs......There are stockings called Circaids that do a good job and are much easier to get on than the Emerson hose or traditional compression stockings. We can take care of this if you choose to follow up with me in the wound care center. 9. It has donis a pleasure meeting you and helping you recover. If you have any questions after you leave rehab my office number is [phone] and my cell number is [phone]. Please do not hesitated to call. You should be very proud of the work you have done here! Discharge Orders/Prescriptions Prescriptions: New Arthritis Pain Compound 0 click topical TID Qty: 0 RF: 0 ascorbic acid (vitamin C) 500 mg Tablet 500 mg PO 1200 Qty: 0 RF: 0 albuterol sulfate [Ventolin HFA] 90 mcg/actuation Hfa Aerosol Inhaler 2 puff inhalation Q6H PRN PRN (Reason: SOB &/OR WHEEZING) Qty: 1 RF: 0 melatonin 3 mg Tablet 3 mg PO QHS Qty: 0 RF: 0 ferrous sulfate [FeroSul] 325 mg (65 mg iron) Tablet 325 mg PO DAILY@1200 Qty: 30 RF: 0 venlafaxine 150 mg Capsule,Extended Release 24hr 150 mg PO 0800 Qty: 30 RF: 2 trazodone 100 mg Tablet 100 mg PO QHS Qty: 30 RF: 2 pantoprazole 40 mg Tablet,Delayed Release (Dr/Ec) 40 mg PO DAILY@0600 Qty: 30 RF: 0 nystatin [Nyamyc] 100,000 unit/gram Powder 1 applic topical BID@0600,2200 Qty: 1 RF: 0 magnesium oxide 400 mg magnesium capsule 400 mg PO DAILY Qty: 30 RF: 0 Continued acetaminophen 500 mg capsule 1,000 mg PO Q6H PRNRF: 0 aspirin [Adult Low Dose Aspirin] 81 mg tablet,delayed release (DR/EC) 81 mg PO DAILY RF: 0 fluticasone propionate [Allergy Relief (fluticasone)] 50 mcg/actuation spray,suspension 2 spray intranasal BID Qty: 1 RF: 0 Discontinued enoxaparin [Lovenox] 40 mg/0.4 mL syringe 40 mg subcut Q12H RF: 0 ferrous sulfate 325 mg (65 mg iron) tablet,delayed release (DR/EC) 325 mg PO DAILY RF: 0 Disposition Disposition (needs filled in before D/C Order can be placed): Home Health Service
--- NOTE | 2021-08-01 16:44 | PCM.DC.SUM ---
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 Routine Comment: Reason for Consult:: wound on back, sacrum, r buttock Reason For Visit: DEBILITY Diagnosis Discharge Diagnosis (1) Debility: Status: Acute Code(s): R53.81 - Other malaise (2) COVID-19 virus infection: Status: Resolved Code(s): U07.1 - COVID-19 (3) Decubitus ulcer, stage 3: Status: Resolved Code(s): L89.93 - Pressure ulcer of unspecified site, stage 3 (4) Iron deficiency anemia due to chronic blood loss: Status: Chronic Code(s): D50.0 - Iron deficiency anemia secondary to blood loss (chronic) (5) Abnormal CXR (chest x-ray): Status: Acute Code(s): R93.89 - Abnormal findings on diagnostic imaging of other specified body structures (6) Dyspnea on exertion: Status: Acute Code(s): R06.00 - Dyspnea, unspecified (7) Hypoxemia requiring supplemental oxygen: Status: Acute Code(s): R09.02 - Hypoxemia; Z99.81 - Dependence on supplemental oxygen (8) Cystitis: Status: Resolved Code(s): N30.90 - Cystitis, unspecified without hematuria (9) Depression: Status: Chronic Code(s): F32.9 - Major depressive disorder, single episode, unspecified (10) MIGUEL (obstructive sleep apnea): Status: Chronic Code(s): G47.33 - Obstructive sleep apnea (adult) (pediatric) (11) Carpal tunnel syndrome of right wrist: Status: Chronic Code(s): G56.01 - Carpal tunnel syndrome, right upper limb (12) Ascending aorta dilatation: Status: Acute Code(s): I77.810 - Thoracic aortic ectasia (13) IBS (irritable bowel syndrome): Status: Suspected Code(s): K58.9 - Irritable bowel syndrome without diarrhea (14) Glucose intolerance: Status: Chronic Code(s): E74.39 - Other disorders of intestinal carbohydrate absorption (15) Insomnia: Status: Resolved Code(s): G47.00 - Insomnia, unspecified Plan: 1. DC home 08/02/21 2. HHC for PT/OT/wound care 3. Bariatric WC for distances - will take 2 weeks to be delivered 4. Home O2 arranged and to be used if she is exerting herself and at night with the BIPAP 5. Schedule sleep study, PFT's and then she will have a visit with Dr. Keys on 09/24/21 to discuss the results and make a plan for care 6. Recommended follow up with the [facility] program at [facility] - I also recommend her attend with her 7. Recommended she follow up with a therapist to work on establishing boundaries, controlling anxiety and treating depression 8. Continue Effexor Medications at Discharge Home Medications acetaminophen 500 mg capsule 1,000 mg PO Q6H PRN cap 07/11/21 aspirin 81 mg tablet,delayed release 81 mg PO DAILY 07/11/21 Arthritis Pain Compound 0 click TOPICAL TID #0 08/01/21 albuterol sulfate [Ventolin HFA] 2 puff INHALATION Q6H PRN PRN #1 g 08/01/21 ascorbic acid (vitamin C) 500 mg PO 1200 #0 tab 08/01/21 ferrous sulfate [FeroSul] 325 mg PO DAILY@1200 #30 tab 08/01/21 fluticasone propionate [Allergy Relief (fluticasone)] 2 spray INTRANASAL BID #1 bottle 08/01/21 magnesium oxide 400 mg PO DAILY #30 cap 08/01/21 melatonin 3 mg PO QHS #0 tab 08/01/21 nystatin [Nyamyc] 1 applic TOPICAL BID@0600,2200 #1 bottle 08/01/21 pantoprazole 40 mg PO DAILY@0600 #30 tab 08/01/21 trazodone 100 mg PO QHS #30 tab 08/01/21 venlafaxine 150 mg PO 0800 #30 cap 08/01/21 Hospital Course Operations None Summary of Care Provided Minutes Spent on Discharge: 45 Hospital Course: JESUSITA GARCIA, is a 51 F with a PMH of obesity, MIGUEL, GERD, chronic diarrhea following cholecystectomy and anxiety who presented to [facility] on 06/03/21 with acute hypoxic respiratory failure due to COVID 19 PNA. She was a transfer from [facility] where she presented on 06/02/21 for a higher level of care. She was unvaccinated. She was intubated from 06/04-06/18 and during her time in the ICU she had multiple complications that included MRS PNA, MSSA PNA, COVID PNA and Staph Hominis bacteremia. She had ARF and the Creat is still elevated. While in the ICU she had hallucinations and she believes that 1 of the doctors was doing things that were not good for her. She has never been one to follow up with a doctor regularly. Last PAP and MMG were several years ago. She has never had a colonoscopy. Prior to becoming ill with COVID she was thinking about looking into bariatric surgery to help her lose weight. She has been having a lot of pain in the knees and the hips and tells me that prior to becoming ill the R leg has been weaker than the left. She has been having trouble walking and at the end of the day prior to the illness she had to use a rollator for stability/support. She became very weak with prolonged complicated illness due to COVID. She was transferred to the inpt rehab unit at [facility] on 07/03/21 for 3 hours of therapy daily to restore function/independence to her level prior to COVID. 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 She drives and was independent in all ADL's however, she was using the scooter at [employer] to get to her office from the front door. She was not exercising prior to COVID and not managing her diet. She has had 1 sleep study and that was 15 years ago. She has gained a lot of weight since that time and I do not think the pressure is adequate. she did not have Oxygen at home. Jenna was very weak and anxious when she arrived on rehab. she was worried about everything and had insomnia. She was constipated but, insisted on taking Questran in the AM to prevent diarrhea. She told me that she gets diarrhea in the morning and she associates this with having a cholecystectomy. she was also getting abd cramping. I think she has IBS and she has cramping and diarrhea in the AM because she is stress out with her job. The Questran was discontinued and she was started on Effexor. She has chronic anxiety and depression and has never seen a psychotherapist. Her relationship with her only child has been impacted by Jenna always having to work. She works over every day and told me she puts in about 50 hours a week. The Effexor XR was gradually increased to 150 mg and she has had no adverse effects. She has had longstanding insomnia and this is doing much better with trazodone at . She has gained a lot of confidence on rehab and she has worked very hard. She has not c/o nausea, diarrhea/abd cramping since about 1 week after the Effexor and Trazodone were instituted. She is sleeping well. She was using the hospital BIPAP unit at 14/10 with a 1 L oxygen bleed in during her hospital stay. Prior to DC her sister brought in Jenna's unit and we did an overnight trending pulse ox with a 1 L bleed in and she had a pulse ox < 88% frequently....approximately 6% of the time she was monitored. A sleep study has been arranged for her and follow up with pulmonary but she will be going home and use her own BIPAP with a 2 LPM oxygen bleed in. Jenna is still very SOB with exertion. The HR sometimes is in the 130's with walking 50 ft. she is using a rollator. when she went outside and had a mask on she was only able to walk a very short distance due to SOB. Pulse ox on RA with exertion 24 hours prior to DC was 86% after 50 ft and when she put a mask on it dropped to 84% and she was very tachypneic. She will wear the oxygen with exertion at 2 LPM. The pulse ox with ambulation and 2 LPM is 93%. Jenna was discharged on 08/03/21. She is much stronger than she was at admission. Prior to discharge she was able to do 14 sit to stands in 30 seconds without using her upper extremities. She completed the TUG test in 19.89 seconds with a Rollator. She was able to climb six 6 inch steps with 2 handrails at standby assist. She was able to walk 165 feet with a Rollator without standing rest breaks. She has ambulated up to 44 feet without a device but has increased knee pain. She is able to dress herself and is independent with grooming. Home O2 was arranged by the . She has a rollator. A bariatric WC was ordered for her but, will not be delivered for 2 weeks because it is on back order. She needs the WC for longer distances. Home PT/OT and wound care at home were arranged by the . I recommended to Jenna and her that they follow up with the [facility] program at [facility] that is run by the dieticians. She has an appt with her PCP, Jesusita Morrow, on 08/09/21. When she is able to do OP PT I recommended she have PT ordered in the pool as an OP to offload the pressure on her knees and hips. When she is able to lose enough weight she will be able to have knee replacement. She will need PFT's prior to seeing Dr. Keys on 09/24 so he can have the results of the PFT's and the sleep study to review with Jenna at that visit. I strongly encouraged her to find a psychotherapist to work with to learn how to set boundaries at work and to help with depression and anxiety. I also very strongly recommended she the COVID vaccine. she already has chronic lung damage and is requiring oxygen now and another COVID infection may well kill her, it came very close this time. She will be eligible to take the vaccine on 09/03/21 which is 90 days after she was admitted for COVID. Physical Exam Narrative alert, oriented X 3. Good eye contact. Is more confident in her abilities to progress toward her goals. Pleasant and well groomed. HEENT moist oral mucous membranes Neck supple Carotids: normal carotid upstroke; Negative for bruit Chest Chest: symmetrical chest wall rise Resp normal respiratory effort, normal air movement, no use of accessory muscles and clear to auscultation bilaterally Effort and Inspection: able to speak in complete sentences Cardio regular rate, regular rhythm, no murmurs, no rub and no gallops Cardio Narrative: HR increases and RR increases 15-20 beats after walking 50 ft. GI normal to inspection, nondistended, normoactive bowel sounds, soft to palpation, non-tender and non-distended GI Narrative: She never complains to me about abd pain now or diarrhea now that she has been on the Effexor. Extremity no calf tenderness Extremity Narrative: There is edema of the LE's and when the legs are dependent there is venous hypertension and they look purple/red to her and I explained this is due to venous insufficiency when dependent and the way to control this is to provide compression. When she follows up with me in the wound care center I will get Circaids ordered for her to control the edema and prevent lymphedema from developing. Skin Skin Narrative: The fissure in the skin fold on the back is still open but is smaller. It is much easier to open the skin fold and apply the dressing since she has lost 17 pounds. there is still some slough and she is going to follow up with me in the wound care center next Thursday. Rashes: no rashes Wound Narrative: Neuro oriented x3, CN's II-XII intact bilaterally and moves all extremities Neuro Narrative: + Phalen's on the R. the R side is weaker than the left and she is R hand dominant. I suspect she may have had a stroke while on the ventilator for 2 weeks. No dysarthria and no facial drrop. Motor Exam: strength 5/5 throughout Psych mental status grossly normal, thought process normal, cooperative, affect normal and denies suicidal ideation Appearance: grossly normal, appropriate and well kempt Activity / Motor Behavior: appropriate eye contact Speech: normal speech Medical Records Data Medical Nutrition Assessment Dietitian: Malnutrition Criteria Met Start: 07/04/21 16:17 Freq: Status: Active Protocol: Document 07/11/21 10:45 BP (Rec: 07/11/21 10:46 BP [id number]) Nutrition Malnutrition Evidence of Malnutrition Exists No Intake Problem Increased Nutrient Needs (specify) Etiology (protein) related to wounds Signs/Symptoms as evidenced by right buttock 1x1x0.1cm, and mid back in fold at waist 1x5.8x0.1cm pressure injuries. Status Active Problem Recommendation Dietitian Recommendations/Changes Continue cardiac 1800 calorie diet. Continue 1 pkt Kevin BID at [facility]. Further weight loss counseling as patient willing. Weight / BMI Weight Weight: 407 lb 10.155 oz Body Mass Index (BMI) 70.0 ABG / Lab / Microbiology Data Result Diagrams: 07/26/21 05:36 07/26/21 05:36 Microbiology: Microbiology 07/11/21 19:15 Urine Catheter - Catheter Urine Culture - Final Escherichia coli Klebsiella pneumoniae sp pneum 07/05/21 08:50 Stool Stool Occult Blood (SOSA) - Final D/C Instructions Discharge Diet: 1800 Calorie Control Diet (consistent carbohydrate no added salt.) Return to work on: 09/30/21 Weight Bearing Status: Full weight bearing Keep extremity elevated above heart level: Legs Call your doctor if your incision/area has: Continuous Slow Oozing, Sudden Increased Bleeding, Increased Pain/ Swelling, Increased Redness and Foul Smelling Discharge Call your doctor if you observe: Fever of 101 or Higher, Shortness of breath, Fainting spells, Chest pain, Calf discomfort and Uncontrolled pain Cleanse incision/area with: Soap & Water and Keep Dressing Clean & Dry Additional Dressing/Incision Instructions: Change the dressing on the back every day. Pending Tests Upon Discharge: none Please Follow Up With: Lou Crews PA-C Meaningful Use Info Meaningful Use Diagnoses (Choose all that apply): None applicable Discharge Plan Admission Admit Date/Time: 07/03/21 18:56 Primary Reason for Your Visit: debility due to COVID 19 pneumonia with acute resp failure/MIRIAM/MRSA PNA. Attending Provider: Katherine Jonas Instructions Forms: Work / School Excuse Patient Instructions: Depression Affects Your Mind ..., What Can Cause Depression?, Counseling for Depression, Anxiety Disorders Tx Therapy, Signs of Addiction to Food ... Additional Instructions / Restrictions: 1. [facility] for PT/OT/SN 2. You have come a LONG way since you first came to rehab. BOTH mentally and physically. You are more confident and focused on getting healthy. You are a young women and you can get yourself in better shape and in a better frame of mind to stay healthy. Learning to set boundaries is SO important......it puts you in control of your life. Learning how to set boundaries is HARD, rosa if you have not been doing this for many years. I hope you are able to find a therapist you feel comfortable with to work out some of your issues. 3. Keep an open mind........keep bariatric surgery in the back of your mind as a possible option. Keep your options open. 4. You will need to see someone to make sure the wound on your back heals. I see patients in the wound care center here on Thursday afternoons. I would be happy to continue seeing you to take care of the wound. 5. Preventative health maintenance is very important. PAP's, mammograms, colonoscopies, vaccinations, access to a doctor to call if you get sick.......these are all important. These things save lives. 6. You will need to get a COVID vaccine 3 months after you got COVID. September 03 would be 3 months. You can still get another COVID variant even though you have already had COVID. Please protect yourself and your family. 7. I recommend you follow up with the [facility] program here at the hospital following discharge. It is run by the dieticians and they have helped a lot of people stay on track with their weight loss. 8. We need to get you into some good compression stockings to control the edema in your legs......There are stockings called Circaids that do a good job and are much easier to get on than the Emerson hose or traditional compression stockings. We can take care of this if you choose to follow up with me in the wound care center. 9. It has donis a pleasure meeting you and helping you recover. If you have any questions after you leave rehab my office number is [phone] and my cell number is [phone]. Please do not hesitated to call. You should be very proud of the work you have done here! Discharge Orders/Prescriptions Prescriptions: New Arthritis Pain Compound 0 click topical TID Qty: 0 RF: 0 ascorbic acid (vitamin C) 500 mg Tablet 500 mg PO 1200 Qty: 0 RF: 0 albuterol sulfate [Ventolin HFA] 90 mcg/actuation Hfa Aerosol Inhaler 2 puff inhalation Q6H PRN PRN (Reason: SOB &/OR WHEEZING) Qty: 1 RF: 0 melatonin 3 mg Tablet 3 mg PO QHS Qty: 0 RF: 0 ferrous sulfate [FeroSul] 325 mg (65 mg iron) Tablet 325 mg PO DAILY@1200 Qty: 30 RF: 0 venlafaxine 150 mg Capsule,Extended Release 24hr 150 mg PO 0800 Qty: 30 RF: 2 trazodone 100 mg Tablet 100 mg PO QHS Qty: 30 RF: 2 pantoprazole 40 mg Tablet,Delayed Release (Dr/Ec) 40 mg PO DAILY@0600 Qty: 30 RF: 0 nystatin [Nyamyc] 100,000 unit/gram Powder 1 applic topical BID@0600,2200 Qty: 1 RF: 0 magnesium oxide 400 mg magnesium capsule 400 mg PO DAILY Qty: 30 RF: 0 Continued acetaminophen 500 mg capsule 1,000 mg PO Q6H PRNRF: 0 aspirin [Adult Low Dose Aspirin] 81 mg tablet,delayed release (DR/EC) 81 mg PO DAILY RF: 0 fluticasone propionate [Allergy Relief (fluticasone)] 50 mcg/actuation spray,suspension 2 spray intranasal BID Qty: 1 RF: 0 Discontinued enoxaparin [Lovenox] 40 mg/0.4 mL syringe 40 mg subcut Q12H RF: 0 ferrous sulfate 325 mg (65 mg iron) tablet,delayed release (DR/EC) 325 mg PO DAILY RF: 0 Disposition Disposition (needs filled in before D/C Order can be placed): Home Health Service Charges/Coding Visit Charges Inpatient E&M: 95569 Disch Hosp
[2021-08-01] MEDS: Magnesium Chloride 64 MG Delay Rel.Tablet 128 MG PO (17:09)
[2021-08-01 19:19] VITALS: BP 114/60; PULSE 80; RESP 18; TEMP 36.3; O2SAT 96
[2021-08-01] MEDS: traZODone 100 MG Tablet PO (22:02)
[2021-08-01] MEDS: MELATONIN 3 MG TABLET PO (22:04)
[2021-08-01] MEDS: Menthol/Lanolin/Calamine/Znox 113 GM Tube 1 APPLIC TOPICAL (22:06)
[2021-08-02] MEDS: Arthritis Pain Compound 60 CLICK TUBE TOPICAL (05:35)
[2021-08-02] MEDS: Pantoprazole Sodium 40 MG Tablet PO (05:35)
[2021-08-02 08:05] VITALS: BP 121/63; PULSE 71; RESP 16; TEMP 36.6; O2SAT 97
[2021-08-02] MEDS: Cholecalciferol (VIT D3) 25 MCG TABLET (1,000 UNITS) 50 MCG PO (10:08)
[2021-08-02] MEDS: Aspirin 81 MG TAB.CHEW PO (10:08)
[2021-08-02] MEDS: guaiFENesin 600 MG Tablet PO (10:08)
[2021-08-02] MEDS: Juven (unflavored) Packet 1 PACKET PO (10:41)
[2021-08-02] MEDS: Fluticasone 0.05% 1 SPRAY NASAL.SRY 2 SPRAY NASAL (10:42)
[2021-08-02] MEDS: Calcium Carbonate 500 MG Tablet PO (10:43)
[2021-08-02] MEDS: Venlafaxine XR 150 MG Capsule PO (10:43)
[2021-08-02] MEDS: Enoxaparin 40 MG/0.4 ML Syringe SC (10:44)
[2021-08-02] MEDS: Ascorbic Acid 500 MG Tablet PO (11:04)
[2021-08-02] MEDS: Ferrous Sulfate 325 MG Tablet PO (11:04)
[2021-08-02] MEDS: Collagenase 30gm Tube 1 APPLIC TOPICAL (11:10)
[2021-08-02 12:30] VITALS: BP 121/63; PULSE 71; RESP 16; TEMP 36.6; O2SAT 97
--- NOTE | 2021-08-02 12:30 | NURSING ---
Discharge instructions given and verbalized understanding to wound care instruct.
== END 2021-08-02 12:15 | disposition home health service (06) | DRG 682 ==
PROVIDERS: Admitting Provider Internal Medicine; Visit Provider Internal Medicine
DX: N17.9 Acute kidney failure, unspecified (principal); L89.103 Pressure ulcer of unspecified part of back, stage 3; Z68.45 Body mass index [BMI] 70 or greater, adult; R53.1 Weakness; R53.81 Other malaise; Z86.16 Personal history of COVID-19; Z87.01 Personal history of pneumonia (recurrent); D50.0 Iron deficiency anemia secondary to blood loss (chronic); G47.33 Obstructive sleep apnea (adult) (pediatric); F32.9 Major depressive disorder, single episode, unspecified; F41.9 Anxiety disorder, unspecified; K21.9 Gastro-esophageal reflux disease without esophagitis; J45.909 Unspecified asthma, uncomplicated; R09.02 Hypoxemia; K58.9 Irritable bowel syndrome, unspecified; N30.90 Cystitis, unspecified without hematuria; B96.1 Klebsiella pneumoniae [K. pneumoniae] as the cause of diseases classified elsewhere; B96.20 Unspecified Escherichia coli [E. coli] as the cause of diseases classified elsewhere; R93.89 Abnormal findings on diagnostic imaging of other specified body structures; E74.39 Other disorders of intestinal carbohydrate absorption; G47.00 Insomnia, unspecified; I87.2 Venous insufficiency (chronic) (peripheral); E66.01 Morbid (severe) obesity due to excess calories; Z99.81 Dependence on supplemental oxygen; Z86.19 Personal history of other infectious and parasitic diseases; Z87.891 Personal history of nicotine dependence; Z79.82 Long term (current) use of aspirin; Z79.899 Other long term (current) drug therapy; Z79.51 Long term (current) use of inhaled steroids
CPT/HCPCS: 36415; 71046; 80048; 80053; 81001; 82274; 82728; 82962; 83540; 83550; 83735; 83880; 84100; 84439; 84443; 85014; 85018; 85027; 87077; 87086; 87088; 87186; 94002; 94003; 94640; 94660; 94668; 97110; 97116; 97150; 97162; 97166; 97530; 97535; 97802; 97803; 99251; G0463

== ENCOUNTER → 2021-07-26 15:09 | Outpatient (CLI) | payer BC, SELFPAY ==
[2021-07-11 15:27] VITALS: BMI 67.5
--- NOTE | 2021-07-26 15:13 | ECHOD_ITS ---
Reason For Study: DYSPNEA/SOB Procedure This was a 2D Doppler, Color Flow transthoracic echocardiogram. The study was technically difficult. Exam performed in department. Left Ventricle Normal LV size. Left ventricular systolic function is normal. The estimated ejection fraction is 65 %. Transmitral doppler flow suggestive of impaired relaxation of left ventricle. No regional wall motion abnormalities noted. Right Ventricle Normal RV size. Normal systolic function. Atria Normal left atrium. Normal right atrium. No doppler evidence for ASD. Mitral Valve There is no mitral annular calcification. Normal mitral valve. Trivial mitral valve insufficiency. Tricuspid Valve The tricuspid valve is not well visualized. Trivial tricuspid valve insufficiency. Unable to estimate RV systolic pressure/pulmonary artery pressure due to technically difficult study. Aortic Valve Trisinus/trileaflet aortic valve. Normal aortic valve. Pulmonic Valve The pulmonic valve is not well visualized. Great Vessels Normal sized aortic root. Pericardium/Pleural No pericardial effusion. MMode/2D Measurements & Calculations LVIDd: 5.4 cm IVSd: 0.92 cm Ao root diam: 3.7 cm LVIDs: 3.6 cm LVPWd: 1.1 cm RVDd: 3.8 cm FS: 34.0 % LAV(MOD-bp): 51.9 ml LVAd ap4: 37.6 cm2 SV(MOD-sp4): 85.3 ml LAV(MOD-bp) Indexed: 19.4 ml/m2 LVLd ap4: 8.0 cm LAV(MOD-sp2): 54.4 ml EDV(MOD-sp4): 147.1 ml LAV(MOD-sp4): 47.9 ml EDV(sp4-el): 149.4 ml LVAs ap4: 21.6 cm2 LVLs ap4: 6.7 cm ESV(MOD-sp4): 61.8 ml ESV(sp4-el): 59.6 ml EF(MOD-sp4): 58.0 % EF(sp4-el): 60.1 % SV(sp4-el): 89.8 ml LA A4 area: 19.1 cm2 LA dimension(2D): 3.6 cm RA A4 area: 15.0 cm2 Time Measurements MV dec time: 0.16 sec Doppler Measurements & Calculations MV E max oj: 77.5 cm/sec Lat Peak E' Oj: 8.5 cm/sec Med Peak E' Oj: 6.5 cm/sec MV A max oj: 104.3 cm/sec E/E' lat: 9.1 E/E' med: 12.0 MV E/A: 0.74 Ao V2 max: 151.9 cm/sec LV V1 max: 110.9 cm/sec PA V2 max: 88.4 cm/sec Ao max P.2 mmHg LV V1 max P.9 mmHg ECHO/Echo Complete Interpretation Summary The study was technically difficult. Left ventricular systolic function is normal. The estimated ejection fraction is 65 %. Trivial mitral valve insufficiency. Trivial tricuspid valve insufficiency. Unable to estimate RV systolic pressure/pulmonary artery pressure due to techni reji difficult study. Ordering Physician: Arthur Fountain Referring Physician: ALONDRA ROSENBERG Performed By: Angelique Crow RDCS
== END ==
PROVIDERS: PCP Physician Assistant; Referring Provider Internal Medicine Cardiovascular Disease; Visit Provider Internal Medicine Cardiovascular Disease
DX: R60.9 Edema, unspecified (principal); I77.810 Thoracic aortic ectasia; R93.1 Abnormal findings on diagnostic imaging of heart and coronary circulation
CPT/HCPCS: 93306

== ENCOUNTER → 2021-08-07 20:00 | Outpatient (CLI) | payer BC, SELFPAY | PROVIDERS: PCP Physician Assistant; Visit Provider Internal Medicine | DX: R09.02 Hypoxemia (principal) | CPT/HCPCS: 95810 ==

== ENCOUNTER → 2021-08-20 07:38 | Outpatient (CLI) | payer BC, SELFPAY ==
--- NOTE | 2021-08-23 10:35 | PFT ---
INTRODUCTION: The patient is a 51-year-old female that presents for pulmonary function studies secondary to a diagnosis of shortness of breath. Respiratory therapy reported that the patient was unable to do plethysmography. Bronchodilators were used during testing. INTERPRETATION: Forced expiration spirometry demonstrates no evidence of a large airways obstructive ventilatory defect. There was no significant response to aerosolized bronchodilators. FVC was reduced at 67% of predicted which could be suggestive of an underlying restrictive ventilatory defect. However, lung volumes would need to be completed to confirm a restriction. Diffusing capacity by single breath CO is reduced at 47% of predicted. IMPRESSION: Spirometry is suggestive of a restrictive impairment. However, lung volumes would need to be completed to confirm the presence of a restriction. Diffusing capacity was significantly reduced.
== END ==
PROVIDERS: PCP Physician Assistant; Referring Provider Physician Assistant; Visit Provider Physician Assistant
DX: Z86.16 Personal history of COVID-19 (principal)
CPT/HCPCS: 94060; 94729

== ENCOUNTER 2021-08-20 14:30 | Outpatient (RCR) | payer BC, SELFPAY ==
[2021-08-06 12:41] VITALS: BP 137/54; PULSE 67; RESP 18; TEMP 36.4; BMI 67.7
--- NOTE | 2021-08-06 14:18 | PCM.WC.PN ---
History of Present Illness Date of Service: 08/06/21 Chief Complaint: Non-healing wound in a skin fold on the back. Jenna was recently a pt in the rehab unit at [facility] for debility due to recent COVID PNA, MRSA PNA, prolonged intubation, MIRIAM and sepsis. At presentation to the rehab unit she had a decubitus ulcer on the R buttock that has since healed and an ulceration located in a deep skin fold on her back. this wound was difficult to treat because the skin fold was very deep initially and it was difficult to get a dressing in there. There was a lot of maceration due to sweating and DC. She lost 17 lbs while in rehab and the skin fold is not nearly as deep now. She was discharged from the rehab unit last week and the dressing on the back wound was Aquacel. She is following up in the [facility] today so that we can continue tx of the ulceration until the wound is healed. PMH is significant for morbid obesity, MIGUEL, anxiety/depression, glucose intolerance. Subjective Subjective Jenna denies fevers/chills/night sweats. She has no pain in the skin fold ulceration on her back. Current dressing is Aquacel covered with a dry dressing. She denies pain in the area of the wound. Objective Data Objective Data Vital Signs: Vital Signs Temp Pulse Resp BP 97.5 F L 67 18 137/54 H 08/06/21 12:41 08/06/21 12:41 08/06/21 12:41 08/06/21 12:41 Oxygen Delivery Method Room Air Weight: 407 lb Body Mass Index (BMI) 67.7 Charges/Coding Procedures Integumentary 111xxx-113xx: 82389 Renae subq tissue 20 sq cm/< Physical Exam Skin Skin Narrative: The ulceration/wound is in a skin fold just below the middle of the back. There is 95% slough. No significant granulation tissue is visible. There is no elo-wound erythema and no odor. No maceration. No tunnelling and no undermining. There is serosanguineous DC present on the dressing that was removed. there has been new epithelialization at the wound margin.....there is cicatrix present on the caudal side of the wound. Debridement Note Debridement Note Wound debrided: ulceration in a skin fold on the back Type of Debridement: Excisional debridement Anesthesia Used: 5% Lidocaine Gel Depth: Down to and including healthy tissue and in the subcutaneous layer Percentage of wound debrided: 100 Instrument Used: 3mm curette and Forceps Tissue Removed: biofilm, rim of the wound and slough Severity: Limited To Skin Breakdown Amount of bleeding with debridement: Mild Bleeding Controlled with: Pressure Patient tolerated procedure: Patient tolerated procedure well Debridement Free Text: Post debridement there is a small mount of granulation tissue present within a fibrous white center. Post-Debridement Measurements and Additional Note: Post-Debridement Measurements/Treatment - Nurse 1 - General Ulcer Assessment Start: 08/06/21 12:39 Freq: Status: Active Protocol: BRIDGET Activity Type Activity Date Activity User E-Sign Co-Sign Detail Recorded Client Recorded Date Recorded By Document 08/06/21 12:41 [facility] [id number] 08/06/21 12:51 [facility] 08/06/21 12:41 - Today's Visit Information Type of service Initial Visit Arrival Mode Wheelchair Transfer Assistance Other Transfer Assist (Other) STAND BY Patient Identification Verified (Name & Yes ) Patient Requires Transmission-Based No Precautions Height and Weight Height 5 ft 5 in Weight 407 lb Weight in Pounds 407.0 lbs Weight Measurement Method Estimated by Patient Body Mass Index (BMI) 67.7 BMI Classification Obese BSA - Akbar 2.68 Vital Signs Temperature (97.8 F-99.1 F) 97.5 F L Temperature Source Temporal Pulse Rate (60-100) 67 Pulse Location Monitor Respiratory Rate (12-18) 18 Respiratory rate source Observation Oxygen Delivery Method Room Air Blood Pressure (90/60-120/80) 137/54 H Blood Pressure Mean (mm Hg) 81 Source Monitor Position Sitting Blood Pressure Location Right Forearm History Since Last Visit- (Skip if this is Patient's initial visit) Left Footwear Regular Shoe Right Footwear Regular Shoe Pain Scale: 0-10 Numeric Is Patient Pain Free? Yes Communication Assessment Preferred language [place] Extrusion Press Adjuster Required No Able to Read Yes Able to Write Yes Communication Tools None Caregiver Communication Skills No Impairment Impairment Right Hearing Abillity Normal Left Hearing Abillity Normal Visual Assistive Devices Glasses Teaching Assessment Preferences Verbal,Written, Audio/Visual, Demonstration Barriers to Learning None Readiness To Learn Excellent Willingness to Engage in Self Management High Activies Readiness to Engage in Self Management High Activities Anxiety Level Calm Cooperation Cooperative Perception Coherent Interest in Health Problem Asks Questions Education Importance Acknowledges Need Does Patient Smoke tobacco or other No substances Smoking Status Never smoker Is Patient Diabetic No 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 Cultural/Jehovah'S Witness Needs that may affect No Treatment Plan Teaching: Wound Center *Welcome to the Wound Center -Person Taught Patient -Teaching Method Discussion -Response to teaching Verbalize understanding Welcome to the Wound Care Center [place] WC - Nurse 1 - General Ulcer Measurement Start: 08/06/21 12:39 Freq: Status: Active Protocol: Activity Type Activity Date Activity User E-Sign Co-Sign Detail Recorded Client Recorded Date Recorded By Document 08/06/21 12:41 [facility] [id number] 08/06/21 12:51 [facility] 08/06/21 12:41 Wound Center Nurse 1 #1- MID BACK -Combined with other wound No -Current Size (cm) - Length 0.3 -Current Size (cm) - Width 2.6 -Current Size (cm) - Depth 0.2 -Total Square Cm 0.78 -Date of Last Picture (Recall this 08/06/21 field) -Photo Taken Yes -Epithelialization None Present -Tunneling No -Undermining/Tunneling No -Circular Undermining No -Exudate Amt Medium -Exudate Type Serosanguineous -Wound Margin Distinct, Outline Attached -Granulation Amt Small (1-33%) -Granulation Quality Red -Slough/Fibrin Yes -Necrosis Amt Large (67-100%) -Necrotic Tissue Type Adherent Slough -Texture (Elo-wound Skin Appearance) Assessed, Scarring -Moisture (Elo-wound Skin Appearance) Assessed -Color (Elo-wound Skin Appearance) Assessed, Erythema -Temperature (Elo-wound Skin No Abnormality Appearance) (Pt Warm) -Tenderness on Palpation (Elo-wound No Skin Appearance) -Ulcer Cleansing Rinsed/ Irrigated with Saline -Foul Odor after Cleansing No -Anesthetic Used 5% Lidocaine Gel WC - Nurse 2 - General Ulcer CM Notes Start: 08/06/21 12:39 Freq: Status: Active Protocol: Activity Type Activity Date Activity User E-Sign Co-Sign Detail Recorded Client Recorded Date Recorded By Document 08/06/21 13:25 MW [id number] 08/06/21 13:33 MW 08/06/21 13:25 Wound Center Nurse 2 -Time 13:25 -Correct Patient Yes -Correct Side, Site, Position Yes -Correct Procedure Yes -Procedure Performed Yes -Type of Procedure Debridement -Clinical Debridement Subcutaneous -Tissue Removed Subcutaneous -Post Debridement (cm) - Length 3.2 -Post Debridement (cm) - Width 0.6 -Post Debridement (cm) - Depth 0.1 -Total Square (Post) (cm) 1.92 -Area of Debridement (cm) - Length 3.2 -Area of Debridement (cm) - Width 0.6 -Total Square (Area) (cm) 1.92 -Tunneling No -Undermining/Tunneling No -Circular Undermining No -Wound/Ulcer Outcome Not Healed -Ulcer Cleansing Rinsed/ Irrigated with Saline -Foul Odor after Cleansing No -Bioengineered Tissue No -Bleeding Controlled with Pressure -Offloading No -Treatment Response Procedure Tolerated Well -Debridement - Subq, 1st 20sq cm Yes Pain Scale: 0-10 Numeric Is Patient Pain Free? Yes - Nurse 3 - General Ulcer D/C NN Start: 08/06/21 12:39 Freq: Status: Active Protocol: Activity Type Activity Date Activity User E-Sign Co-Sign Detail Recorded Client Recorded Date Recorded By Document 08/06/21 13:48 [place] [id number] 08/06/21 13:49 [facility] 08/06/21 13:48 Wound Care Nurse 3 #1- MID BACK -Ulcer Cleansing Rinsed/ Irrigated with Saline -Primary Dressing Applied Aquacel Extra -Aquacel Extra 1 WC - Visit Discharge Discharge Condition Stable Ambulatory Status Ambulatory Transportation Private Auto Accompanied by Medication Reconcilliation completed & No provided to patient/care provider Clinical Summary of Care Provided Yes Assessment/Plan Assessment/Plan (1) Decubitus ulcer, stage 3: CODE(S): L89.93 - Pressure ulcer of unspecified site, stage 3 QUALIFIERS: Pressure injury location: back, unspecified location Qualified Code(s): L89.103 - Pressure ulcer of unspecified part of back, stage 3 (2) Super obesity: CODE(S): E66.9 - Obesity, unspecified (3) Glucose intolerance: CODE(S): E74.39 - Other disorders of intestinal carbohydrate absorption PLAN: 1. Continue Aquacel AG and cover with a dry dressing. 2. RTC in 1 week for a recheck and further debridement We discussed again the merits of getting a COVID vaccine. She is morbidly obese, has glucose intolerance and now likely has some chronic scarring causing desaturation with exertion requiring oxygen. She also has MIGUEL. She is very fortunate to have survived this episode of COVID and required mechanical ventilation for 2 weeks before she could be extubated. She will likely not be so eliud if she gets COVID again.
--- NOTE | 2021-08-13 13:04 | PN.PCM_ITS ---
History of Present Illness Date of Service: 08/13/21 Chief Complaint: Non-healing wound in a skin fold on the back. Jenna was recently a pt in the rehab unit at [facility] for debility due to recent COVID PNA, MRSA PNA, prolonged intubation, MIRIAM and sepsis. At presentation to the rehab unit she had a decubitus ulcer on the R buttock that has since healed and an ulceration located in a deep skin fold on her back. this wound was difficult to treat because the skin fold was very deep initially and it was difficult to get a dressing in there. There was a lot of maceration due to sweating and DC. She lost 17 lbs while in rehab and the skin fold is not nearly as deep now. She was discharged from the rehab unit last week and the dressing on the back wound was Aquacel. She is following up in the [facility] today so that we can continue tx of the ulceration until the wound is healed. PMH is significant for morbid obesity, MIGUEL, anxiety/depression, glucose intolerance. Subjective Subjective Patient presents to the wound care center today for a follow-up visit on a nonhealing stage II decubitus ulcer on her back. The wound is currently being dressed with Aquacel extra. Jenna denies fevers/chills/night sweats. She denies pain. She tells me that she has yet another UTI and she is taking an antibiotic. I reviewed the results of the recent sleep study and she has severe MIGUEL and needs a titration study. Objective Data Objective Data Vital Signs: Vital Signs Temp Pulse Resp BP 97.5 F L 67 18 137/54 H 08/06/21 12:41 08/06/21 12:41 08/06/21 12:41 08/06/21 12:41 Oxygen Delivery Method Room Air Weight: 407 lb Body Mass Index (BMI) 67.7 Charges/Coding Procedures Integumentary 111xxx-113xx: 36747 Renae subq tissue 20 sq cm/< Physical Exam Skin Wound Narrative: The wound is jessi. There is new epithelialization at the rim of the wound. There is still approximately 50-60% slough which is white and fibrotic. There is no elo-wound erythema and there is no purulent DC and no odor. There is no undermining and no tunnelling. There is no maceration Debridement Note Debridement Note Wound debrided: back wound Type of Debridement: Excisional debridement Anesthesia Used: 5% Lidocaine Gel Depth: Down to and including healthy tissue and in the subcutaneous layer Percentage of wound debrided: 100 Instrument Used: 3mm curette and Forceps Tissue Removed: biofilm and slough Severity: Fat Layer Exposed Amount of bleeding with debridement: Mild Bleeding Controlled with: Pressure Patient tolerated procedure: Patient tolerated procedure well Operative Diagnosis: non-healing wound in a skin fold on the back Post-Debridement Measurements and Additional Note: Post-Debridement Measurements/Treatment - Nurse 1 - General Ulcer Assessment Start: 08/06/21 12:39 Freq: Status: Active Protocol: BRIDGET Activity Type Activity Date Activity User E-Sign Co-Sign Detail Recorded Client Recorded Date Recorded By Document 08/06/21 12:41 [facility] [id number] 08/06/21 12:51 [facility] 08/06/21 12:41 - Today's Visit Information Type of service Initial Visit Arrival Mode Wheelchair Transfer Assistance Other Transfer Assist (Other) STAND BY Patient Identification Verified (Name & Yes ) Patient Requires Transmission-Based No Precautions Height and Weight Height 5 ft 5 in Weight 407 lb Weight in Pounds 407.0 lbs Weight Measurement Method Estimated by Patient Body Mass Index (BMI) 67.7 BMI Classification Obese BSA - Akbar 2.68 Vital Signs Temperature (97.8 F-99.1 F) 97.5 F L Temperature Source Temporal Pulse Rate (60-100) 67 Pulse Location Monitor Respiratory Rate (12-18) 18 Respiratory rate source Observation Oxygen Delivery Method Room Air Blood Pressure (90/60-120/80) 137/54 H Blood Pressure Mean (mm Hg) 81 Source Monitor Position Sitting Blood Pressure Location Right Forearm History Since Last Visit- (Skip if this is Patient's initial visit) Left Footwear Regular Shoe Right Footwear Regular Shoe Pain Scale: 0-10 Numeric Is Patient Pain Free? Yes Communication Assessment Preferred language Citizen Of [place] Glass Washer Required No Able to Read Yes Able to Write Yes Communication Tools None Caregiver Communication Skills No Impairment Impairment Right Hearing Abillity Normal Left Hearing Abillity Normal Visual Assistive Devices Glasses Teaching Assessment Preferences Verbal,Written, Audio/Visual, Demonstration Barriers to Learning None Readiness To Learn Excellent Willingness to Engage in Self Management High Activies Readiness to Engage in Self Management High Activities Anxiety Level Calm Cooperation Cooperative Perception Coherent Interest in Health Problem Asks Questions Education Importance Acknowledges Need Does Patient Smoke tobacco or other No substances Smoking Status Never smoker Is Patient Diabetic No Culture/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 Cultural/Islam Needs that may affect No Treatment Plan Teaching: Wound Center *Welcome to the Wound Center -Person Taught Patient -Teaching Method Discussion -Response to teaching Verbalize understanding Welcome to the Wound Care Center Citizen Of [place] WC - Nurse 1 - General Ulcer Measurement Start: 08/06/21 12:39 Freq: Status: Active Protocol: Activity Type Activity Date Activity User E-Sign Co-Sign Detail Recorded Client Recorded Date Recorded By Document 08/06/21 12:41 [facility] [id number] 08/06/21 12:51 [facility] 08/06/21 12:41 Wound Center Nurse 1 #1- MID BACK -Combined with other wound No -Current Size (cm) - Length 0.3 -Current Size (cm) - Width 2.6 -Current Size (cm) - Depth 0.2 -Total Square Cm 0.78 -Date of Last Picture (Recall this 08/06/21 field) -Photo Taken Yes -Epithelialization None Present -Tunneling No -Undermining/Tunneling No -Circular Undermining No -Exudate Amt Medium -Exudate Type Serosanguineous -Wound Margin Distinct, Outline Attached -Granulation Amt Small (1-33%) -Granulation Quality Red -Slough/Fibrin Yes -Necrosis Amt Large (67-100%) -Necrotic Tissue Type Adherent Slough -Texture (Elo-wound Skin Appearance) Assessed, Scarring -Moisture (Elo-wound Skin Appearance) Assessed -Color (Elo-wound Skin Appearance) Assessed, Erythema -Temperature (Elo-wound Skin No Abnormality Appearance) (Pt Warm) -Tenderness on Palpation (Elo-wound No Skin Appearance) -Ulcer Cleansing Rinsed/ Irrigated with Saline -Foul Odor after Cleansing No -Anesthetic Used 5% Lidocaine Gel WC - Nurse 2 - General Ulcer CM Notes Start: 08/06/21 12:39 Freq: Status: Active Protocol: Activity Type Activity Date Activity User E-Sign Co-Sign Detail Recorded Client Recorded Date Recorded By Document 08/06/21 13:25 MW [id number] 08/06/21 13:33 MW 08/06/21 13:25 Wound Center Nurse 2 -Time 13:25 -Correct Patient Yes -Correct Side, Site, Position Yes -Correct Procedure Yes -Procedure Performed Yes -Type of Procedure Debridement -Clinical Debridement Subcutaneous -Tissue Removed Subcutaneous -Post Debridement (cm) - Length 3.2 -Post Debridement (cm) - Width 0.6 -Post Debridement (cm) - Depth 0.1 -Total Square (Post) (cm) 1.92 -Area of Debridement (cm) - Length 3.2 -Area of Debridement (cm) - Width 0.6 -Total Square (Area) (cm) 1.92 -Tunneling No -Undermining/Tunneling No -Circular Undermining No -Wound/Ulcer Outcome Not Healed -Ulcer Cleansing Rinsed/ Irrigated with Saline -Foul Odor after Cleansing No -Bioengineered Tissue No -Bleeding Controlled with Pressure -Offloading No -Treatment Response Procedure Tolerated Well -Debridement - Subq, 1st 20sq cm Yes Pain Scale: 0-10 Numeric Is Patient Pain Free? Yes - Nurse 3 - General Ulcer D/C NN Start: 08/06/21 12:39 Freq: Status: Active Protocol: Activity Type Activity Date Activity User E-Sign Co-Sign Detail Recorded Client Recorded Date Recorded By Document 08/06/21 13:48 [place] [id number] 08/06/21 13:49 [facility] 08/06/21 13:48 Wound Care Nurse 3 #1- MID BACK -Ulcer Cleansing Rinsed/ Irrigated with Saline -Primary Dressing Applied Aquacel Extra -Aquacel Extra 1 WC - Visit Discharge Discharge Condition Stable Ambulatory Status Ambulatory Transportation Private Auto Accompanied by Medication Reconcilliation completed & No provided to patient/care provider Clinical Summary of Care Provided Yes Assessment/Plan Assessment/Plan (1) Decubitus ulcer, stage 3: CODE(S): L89.93 - Pressure ulcer of unspecified site, stage 3 QUALIFIERS: Pressure injury location: back, unspecified location Qualified Code(s): L89.103 - Pressure ulcer of unspecified part of back, stage 3 PLAN: 1. Continue Aquacel extra. Change the dressing daily. 2. Return to the wound care center in 1 week
[2021-08-13 13:11] VITALS: BP 124/72; PULSE 66; RESP 16; TEMP 36.4; BMI 67.7
--- NOTE | 2021-08-20 11:11 | PCM.WC.PN ---
History of Present Illness Chief Complaint: Non-healing wound in a skin fold on the back. Jenna was recently a pt in the rehab unit at [facility] for debility due to recent COVID PNA, MRSA PNA, prolonged intubation, MIRIAM and sepsis. At presentation to the rehab unit she had a decubitus ulcer on the R buttock that has since healed and an ulceration located in a deep skin fold on her back. this wound was difficult to treat because the skin fold was very deep initially and it was difficult to get a dressing in there. There was a lot of maceration due to sweating and DC. She lost 17 lbs while in rehab and the skin fold is not nearly as deep now. She was discharged from the rehab unit last week and the dressing on the back wound was Aquacel. She is following up in the [facility] today so that we can continue tx of the ulceration until the wound is healed. PMH is significant for morbid obesity, MIGUEL, anxiety/depression, glucose intolerance. Objective Data Objective Data Vital Signs: Vital Signs Temp Pulse Resp BP 97.5 F L 66 16 124/72 H 08/13/21 13:11 08/13/21 13:11 08/13/21 13:11 08/13/21 13:11 Oxygen Delivery Method Room Air Weight: 407 lb Body Mass Index (BMI) 67.7 Debridement Note Debridement Note Post-Debridement Measurements and Additional Note: Post-Debridement Measurements/Treatment [facility] Nurse 1 - General Ulcer Assessment Start: 08/06/21 12:39 Freq: Status: Active Protocol: .LOWEXT Activity Type Activity Date Activity User E-Sign Co-Sign Detail Recorded Client Recorded Date Recorded By Document 08/06/21 12:41 [facility] [id number] 08/06/21 12:51 [facility] Document 08/13/21 13:11 [facility] [id number] 08/13/21 13:15 [facility] 08/06/21 08/13/21 12:41 13:11 - Today's Visit Information Type of service Initial Visit Follow-up Visit (Physician/LOCAL SALES MANAGER ) Arrival Mode Wheelchair Wheelchair Transfer Assistance Other None Transfer Assist (Other) STAND BY Accompanied by Patient Identification Verified (Name & Yes Yes ) Patient Requires Transmission-Based No Precautions Height and Weight Height 5 ft 5 in Weight 407 lb Weight in Pounds 407.0 lbs Weight Measurement Method Estimated by Patient Body Mass Index (BMI) 67.7 67.7 BMI Classification Obese Obese BSA - Akbar 2.68 Vital Signs Temperature (97.8 F-99.1 F) 97.5 F L 97.5 F L Temperature Source Temporal Temporal Pulse Rate (60-100) 67 66 Pulse Location Monitor Monitor Respiratory Rate (12-18) 18 16 Respiratory rate source Observation Observation Oxygen Delivery Method Room Air Room Air Blood Pressure (90/60-120/80) 137/54 H 124/72 H Blood Pressure Mean (mm Hg) 81 89 Source Monitor Monitor Position Sitting Sitting Blood Pressure Location Right Forearm Right Forearm Have you changed medications since your No last visit? Any new allergies or adverse reactions No Had a fall/change in ADL's that may No increase risk of falls Have you been in the hospital since your No last visit? Has dressing in place as prescribed Yes Has compression in place as prescribed N/A Has offloadiing in place as prescribed N/A Experienced any changes in pain level or No management History Since Last Visit- (Skip if this is Patient's initial visit) Left Footwear Regular Shoe Regular Shoe Right Footwear Regular Shoe Regular Shoe Pain Scale: 0-10 Numeric Is Patient Pain Free? Yes Yes Communication Assessment Preferred language Lao Sales Branch Manager Required No Able to Read Yes Able to Write Yes Communication Tools None Caregiver Communication Skills No Impairment Impairment Right Hearing Abillity Normal Left Hearing Abillity Normal Visual Assistive Devices Glasses Teaching Assessment Preferences Verbal,Written, Audio/Visual, Demonstration Barriers to Learning None Readiness To Learn Excellent Willingness to Engage in Self Management High Activies Readiness to Engage in Self Management High Activities Anxiety Level Calm Cooperation Cooperative Perception Coherent Interest in Health Problem Asks Questions Education Importance Acknowledges Need Does Patient Smoke tobacco or other No substances Smoking Status Never smoker Is Patient Diabetic No 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 Cultural/Yazidism Needs that may affect No Treatment Plan Teaching: Wound Center *Welcome to the Wound Center -Person Taught Patient -Teaching Method Discussion -Response to teaching Verbalize understanding Welcome to the Wound Care Center English LEAL - Nurse 1 - General Ulcer Measurement Start: 08/06/21 12:39 Freq: Status: Active Protocol: Activity Type Activity Date Activity User E-Sign Co-Sign Detail Recorded Client Recorded Date Recorded By Document 08/06/21 12:41 [facility] [id number] 08/06/21 12:51 [facility] Document 08/13/21 13:11 [facility] [id number] 08/13/21 13:15 [facility] 08/06/21 08/13/21 12:41 13:11 Wound Center Nurse 1 #1- MID BACK -Combined with other wound No -Current Size (cm) - Length 0.3 0.3 -Current Size (cm) - Width 2.6 4 -Current Size (cm) - Depth 0.2 0.3 -Total Square Cm 0.78 1.2 -Date of Last Picture (Recall this 08/06/21 field) -Photo Taken Yes -Epithelialization None Present -Tunneling No -Undermining/Tunneling No -Circular Undermining No -Exudate Amt Medium -Exudate Type Serosanguineous -Wound Margin Distinct, Distinct, Outline Outline Attached Attached -Granulation Amt Small (1-33%) Medium (34-66%) -Granulation Quality Red Red -Slough/Fibrin Yes -Necrosis Amt Large (67-100%) Medium (34-66%) -Necrotic Tissue Type Adherent Slough Adherent Slough -Texture (Elo-wound Skin Appearance) Assessed, Assessed, Scarring Scarring -Moisture (Elo-wound Skin Appearance) Assessed No Abnormality, Assessed -Color (Elo-wound Skin Appearance) Assessed, No Abnormality, Erythema Assessed -Temperature (Elo-wound Skin No Abnormality No Abnormality Appearance) (Pt Warm) (Pt Warm) -Tenderness on Palpation (Elo-wound No No Skin Appearance) -Ulcer Cleansing Rinsed/ Rinsed/ Irrigated with Irrigated with Saline Saline -Foul Odor after Cleansing No No -Anesthetic Used 5% Lidocaine 5% Lidocaine Gel Gel WC - Nurse 2 - General Ulcer CM Notes Start: 08/06/21 12:39 Freq: Status: Active Protocol: Activity Type Activity Date Activity User E-Sign Co-Sign Detail Recorded Client Recorded Date Recorded By Document 08/06/21 13:25 MW [id number] 08/06/21 13:33 MW Document 08/13/21 13:52 MW [id number] 08/13/21 13:54 MW 08/06/21 08/13/21 13:25 13:52 Wound Center Nurse 2 #1- MID BACK -Time 13:25 13:52 -Correct Patient Yes Yes -Correct Side, Site, Position Yes Yes -Correct Procedure Yes Yes -Procedure Performed Yes Yes -Type of Procedure Debridement Debridement -Clinical Debridement Subcutaneous Subcutaneous -Tissue Removed Subcutaneous Subcutaneous -Post Debridement (cm) - Length 3.2 1.6 -Post Debridement (cm) - Width 0.6 2.6 -Post Debridement (cm) - Depth 0.1 0.1 -Total Square (Post) (cm) 1.92 4.16 -Area of Debridement (cm) - Length 3.2 1.6 -Area of Debridement (cm) - Width 0.6 2.6 -Total Square (Area) (cm) 1.92 4.16 -Tunneling No No -Undermining/Tunneling No No -Circular Undermining No No -Wound/Ulcer Outcome Not Healed Not Healed -Ulcer Cleansing Rinsed/ Rinsed/ Irrigated with Irrigated with Saline Saline -Foul Odor after Cleansing No No -Bioengineered Tissue No No -Bleeding Controlled with Pressure Pressure -Offloading No No -Treatment Response Procedure Procedure Tolerated Well Tolerated Well -Debridement - Subq, 1st 20sq cm Yes Yes Pain Scale: 0-10 Numeric Is Patient Pain Free? Yes Yes WC - Nurse 3 - General Ulcer D/C NN Start: 08/06/21 12:39 Freq: Status: Active Protocol: Activity Type Activity Date Activity User E-Sign Co-Sign Detail Recorded Client Recorded Date Recorded By Document 08/06/21 13:48 UDAY [id number] 08/06/21 13:49 UDAY 08/06/21 13:48 Wound Care Nurse 3 #1- MID BACK -Ulcer Cleansing Rinsed/ Irrigated with Saline -Primary Dressing Applied Aquacel Extra -Aquacel Extra 1 WC - Visit Discharge Discharge Condition Stable Ambulatory Status Ambulatory Transportation Private Auto Accompanied by Medication Reconcilliation completed & No provided to patient/care provider Clinical Summary of Care Provided Yes
[2021-08-20 14:43] VITALS: BP 149/84; PULSE 65; RESP 16; TEMP 36.5; BMI 67.7
--- NOTE | 2021-08-20 15:37 | PN.PCM_ITS ---
History of Present Illness Date of Service: 08/20/21 Chief Complaint: Non-healing wound in a skin fold on the back. Jenna was recently a pt in the rehab unit at [facility] [place] for debility due to recent COVID PNA, MRSA PNA, prolonged intubation, MIRIAM and sepsis. At presentation to the rehab unit she had a decubitus ulcer on the R buttock that has since healed and an ulceration located in a deep skin fold on her back. this wound was difficult to treat because the skin fold was very deep initially and it was difficult to get a dressing in there. There was a lot of maceration due to sweating and DC. She lost 17 lbs while in rehab and the skin fold is not nearly as deep now. She was discharged from the rehab unit last week and the dressing on the back wound was Aquacel. She is following up in the [facility] today so that we can continue tx of the ulceration until the wound is healed. PMH is significant for morbid obesity, MIGUEL, anxiety/depression, glucose intolerance. Subjective Subjective She denies any F/C/S. She tells me that she weighed 409 on her scale at home and this has not changed since she arrived home. She weighed 419 on her doctor's scale recently. She is considering following up with the [facility] at the hospital. She is not considering bariatric surgery. She tells me that her legs are more swollen and she has not been elevating much and she is not wearing compression stockings. She has not been keeping track of her salt intake. the current dressing is Aquacel AG with a dry dressing over the top. Objective Data Objective Data Vital Signs: Vital Signs Temp Pulse Resp BP 97.7 F L 65 16 149/84 H 08/20/21 14:43 08/20/21 14:43 08/20/21 14:43 08/20/21 14:43 Oxygen Delivery Method Room Air Weight: 407 lb Body Mass Index (BMI) 67.7 Charges/Coding Procedures Integumentary 111xxx-113xx: 10430 Renae subq tissue 20 sq cm/< Physical Exam Skin Skin Narrative: She has stasis hyperpigmentation of the skin over the posterior L calf and ankle/foot. There is pitting edema of Both Legs.....much more than when she left the hospital. Wound Narrative: The wound continues to contract. Post debridement the square centimeters of the wound is 1.6 and last week it was 4.16. There is a pearly appearance to the margins of the wound and they are rolled under. There is no undermining or tunneling. There is no purulent discharge and there is no odor. There is a fibrous band of slough running the length of the wound. There is no maceration. Debridement Note Debridement Note Wound debrided: back fold Wound Grade/Stage: this is not really a pressure ulcer...it is due to friction Type of Debridement: Excisional debridement Anesthesia Used: 4% Lidocaine Solution Depth: Down to and including healthy tissue and in the subcutaneous layer Percentage of wound debrided: 100 Instrument Used: 3mm curette, #15 blade and Forceps Tissue Removed: biofilm. I used a scalpel and forceps to debride the fibrous slough off Severity: Fat Layer Exposed Amount of bleeding with debridement: Mild Bleeding Controlled with: Pressure Operative Diagnosis: non- healing wound in the folds on the back Post-Debridement Measurements and Additional Note: Post-Debridement Measurements/Treatment - Nurse 1 - General Ulcer Assessment Start: 08/06/21 12:39 Freq: Status: Active Protocol: .ROMEO Activity Type Activity Date Activity User E-Sign Co-Sign Detail Recorded Client Recorded Date Recorded By Document 08/06/21 12:41 [facility] [id number] 08/06/21 12:51 [facility] Document 08/13/21 13:11 [facility] [id number] 08/13/21 13:15 [facility] Document 08/20/21 14:43 [facility] [id number] 08/20/21 14:48 [facility] 08/06/21 08/13/21 08/20/21 12:41 13:11 14:43 - Today's Visit Information Type of service Initial Visit Follow-up Visit Follow-up Visit (Physician/SPREADER (Physician/SPREADER ) ) Arrival Mode Wheelchair Wheelchair Wheelchair Transfer Assistance Other None Other Transfer Assist (Other) STAND BY stand by Accompanied by in lobby Patient Identification Verified (Name & Yes Yes Yes ) Patient Requires Transmission-Based No No Precautions Height and Weight Height 5 ft 5 in Weight 407 lb Weight in Pounds 407.0 lbs Weight Measurement Method Estimated by Patient Body Mass Index (BMI) 67.7 67.7 67.7 BMI Classification Obese Obese Obese BSA - Akbar 2.68 Vital Signs Temperature (97.8 F-99.1 F) 97.5 F L 97.5 F L 97.7 F L Temperature Source Temporal Temporal Temporal Pulse Rate (60-100) 67 66 65 Pulse Location Monitor Monitor Monitor Respiratory Rate (12-18) 18 16 16 Respiratory rate source Observation Observation Observation Oxygen Delivery Method Room Air Room Air Room Air Blood Pressure (90/60-120/80) 137/54 H 124/72 H 149/84 H Blood Pressure Mean (mm Hg) 81 89 105 Source Monitor Monitor Monitor Position Sitting Sitting Sitting Blood Pressure Location Right Forearm Right Forearm Right Forearm Have you changed medications since your No No last visit? Any new allergies or adverse reactions No No Had a fall/change in ADL's that may No No increase risk of falls Signs or symptoms of abuse and/or No neglect since last visit Have you been in the hospital since your No No last visit? Has dressing in place as prescribed Yes Yes Has compression in place as prescribed N/A N/A Has offloadiing in place as prescribed N/A N/A Experienced any changes in pain level or No No management History Since Last Visit- (Skip if this is Patient's initial visit) Left Footwear Regular Shoe Regular Shoe Regular Shoe Right Footwear Regular Shoe Regular Shoe Regular Shoe Pain Scale: 0-10 Numeric Is Patient Pain Free? Yes Yes Yes Communication Assessment Preferred language Polish Provider Contracting Consultant Required No Able to Read Yes Able to Write Yes Communication Tools None Caregiver Communication Skills No Impairment Impairment Right Hearing Abillity Normal Left Hearing Abillity Normal Visual Assistive Devices Glasses Teaching Assessment Preferences Verbal,Written, Audio/Visual, Demonstration Barriers to Learning None Readiness To Learn Excellent Willingness to Engage in Self Management High Activies Readiness to Engage in Self Management High Activities Anxiety Level Calm Cooperation Cooperative Perception Coherent Interest in Health Problem Asks Questions Education Importance Acknowledges Need Does Patient Smoke tobacco or other No substances Smoking Status Never smoker Is Patient Diabetic No 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 Cultural/Adventism Needs that may affect No Treatment Plan Teaching: Wound Center *Welcome to the Wound Center -Person Taught Patient -Teaching Method Discussion -Response to teaching Verbalize understanding Welcome to the Wound Care Center English LEAL - Nurse 1 - General Ulcer Measurement Start: 08/06/21 12:39 Freq: Status: Active Protocol: Activity Type Activity Date Activity User E-Sign Co-Sign Detail Recorded Client Recorded Date Recorded By Document 08/06/21 12:41 [facility] [id number] 08/06/21 12:51 [facility] Document 08/13/21 13:11 [facility] [id number] 08/13/21 13:15 [facility] Document 08/20/21 14:43 [facility] [id number] 08/20/21 14:48 [facility] 08/06/21 08/13/21 08/20/21 12:41 13:11 14:43 Wound Center Nurse 1 #1- MID BACK -Combined with other wound No No -Current Size (cm) - Length 0.3 0.3 0.4 -Current Size (cm) - Width 2.6 4 3 -Current Size (cm) - Depth 0.2 0.3 0.3 -Total Square Cm 0.78 1.2 1.2 -Date of Last Picture (Recall this 08/06/21 field) -Photo Taken Yes No -Epithelialization None Present None Present -Tunneling No No -Undermining/Tunneling No No -Circular Undermining No No -Exudate Amt Medium Small -Exudate Type Serosanguineous Serosanguineous -Wound Margin Distinct, Distinct, Thickened & Outline Outline Rolled Under Attached Attached -Granulation Amt Small (1-33%) Medium (34-66%) Small (1-33%) -Granulation Quality Red Red Red -Slough/Fibrin Yes Yes -Necrosis Amt Large (67-100%) Medium (34-66%) Large (67-100%) -Necrotic Tissue Type Adherent Slough Adherent Slough Adherent Slough -Texture (Elo-wound Skin Appearance) Assessed, Assessed, Assessed, Scarring Scarring Scarring -Moisture (Elo-wound Skin Appearance) Assessed No Abnormality, Assessed Assessed -Color (Elo-wound Skin Appearance) Assessed, No Abnormality, Assessed, Erythema Assessed Erythema -Temperature (Elo-wound Skin No Abnormality No Abnormality No Abnormality Appearance) (Pt Warm) (Pt Warm) (Pt Warm) -Tenderness on Palpation (Elo-wound No No No Skin Appearance) -Ulcer Cleansing Rinsed/ Rinsed/ Rinsed/ Irrigated with Irrigated with Irrigated with Saline Saline Saline -Foul Odor after Cleansing No No No -Anesthetic Used 5% Lidocaine 5% Lidocaine 5% Lidocaine Gel Gel Gel WC - Nurse 2 - General Ulcer CM Notes Start: 08/06/21 12:39 Freq: Status: Active Protocol: Activity Type Activity Date Activity User E-Sign Co-Sign Detail Recorded Client Recorded Date Recorded By Document 08/06/21 13:25 MW [id number] 08/06/21 13:33 MW Document 08/13/21 13:52 MW [id number] 08/13/21 13:54 MW Document 08/20/21 15:10 [id number] 08/20/21 15:18 08/06/21 08/13/21 08/20/21 13:25 13:52 15:10 Wound Center Nurse 2 #1- MID BACK -Time 13:25 13:52 15:10 -Correct Patient Yes Yes Yes -Correct Side, Site, Position Yes Yes Yes -Correct Procedure Yes Yes Yes -Procedure Performed Yes Yes Yes -Type of Procedure Debridement Debridement Debridement -Clinical Debridement Subcutaneous Subcutaneous Subcutaneous -Tissue Removed Subcutaneous Subcutaneous Subcutaneous -Post Debridement (cm) - Length 3.2 1.6 0.5 -Post Debridement (cm) - Width 0.6 2.6 3.2 -Post Debridement (cm) - Depth 0.1 0.1 0.5 -Total Square (Post) (cm) 1.92 4.16 1.60 -Area of Debridement (cm) - Length 3.2 1.6 0.5 -Area of Debridement (cm) - Width 0.6 2.6 3.2 -Total Square (Area) (cm) 1.92 4.16 1.60 -Tunneling No No -Undermining/Tunneling No No -Circular Undermining No No No -Wound/Ulcer Outcome Not Healed Not Healed Not Healed -Ulcer Cleansing Rinsed/ Rinsed/ Rinsed/ Irrigated with Irrigated with Irrigated with Saline Saline Saline -Foul Odor after Cleansing No No Yes, Due to Product Use -Bioengineered Tissue No No No -Bleeding Controlled with Pressure Pressure Pressure -Offloading No No No -Treatment Response Procedure Procedure Procedure Tolerated Well Tolerated Well Tolerated Well -Debridement - Subq, 1st 20sq cm Yes Yes Yes Pain Scale: 0-10 Numeric Is Patient Pain Free? Yes Yes Yes WC - Nurse 3 - General Ulcer D/C NN Start: 08/06/21 12:39 Freq: Status: Active Protocol: Activity Type Activity Date Activity User E-Sign Co-Sign Detail Recorded Client Recorded Date Recorded By Document 08/06/21 13:48 AK [id number] 08/06/21 13:49 AK Document 08/20/21 15:25 [facility] [id number] 08/20/21 15:26 [facility] 08/06/21 08/20/21 13:48 15:25 Wound Care Nurse 3 #1- MID BACK -Ulcer Cleansing Rinsed/ Rinsed/ Irrigated with Irrigated with Saline Saline -Foul Odor after Cleansing No -Primary Dressing Applied Aquacel Extra Aquacel AG 4x4 -Primary Dressing Covered/Secured with Dry Gauze, Secured with Tape,Other -Other Covering drsg per [place] history department chair -Aquacel Extra 1 -Aquacel AG 4x4 1 KAMERON -Compression Wrap [place] Wrap Treatment Response Procedure Tolerated Well Pain Scale: 0-10 Numeric Is Patient Pain Free? Yes WC - Visit Discharge Discharge Condition Stable Stable Ambulatory Status Ambulatory Wheelchair Transportation Private Auto Accompanied by Medication Reconcilliation completed & No provided to patient/care provider Clinical Summary of Care Provided Yes Facility Type Home Health Assessment/Plan Assessment/Plan (1) Non-healing wound: (2) Glucose intolerance: CODE(S): E74.39 - Other disorders of intestinal carbohydrate absorption (3) Super obesity: CODE(S): E66.9 - Obesity, unspecified PLAN: 1. The wound is located in a skin fold on the back and is more likely than not due to friction between the folds and moisture. It is jessi and there is no maceration since we discontinued the Santyl and started Aquacel AG. Will continue with this treatment. She is unable to come to the [facility] next Thursday because her dtr will be in town. She will return to the [facility] in 2 weeks to see me. 2. I encouraged her to count the grams of salt she is eating a day and limit salt intake to 2 GM a day. I also reminded her that Compression is very important if we are going to be able to control the edema(it was in good control in rehab with no diuretics) and so is elevation. This edema can be controlled without resorting to lymphedema pumps if she would just be compliant. 3. She is thinking about joining the [facility] program run by the [facility] worker's at the hospital. I also encouraged her consider lap banding. I really do not see her being motivated enough to lose a decent amount of weight with diet and exercise. She has not looked into counselling for help in learning to set boundaries and to take responsibility for weight gain and not blame her work or her . She would really not be a good candidate for bariatric surgery until she has some psychotherapy.
== END 2021-08-29 23:59 ==
LOC: WC 14:30
PROVIDERS: PCP Physician Assistant; Visit Provider Internal Medicine
DX: L89.103 Pressure ulcer of unspecified part of back, stage 3 (principal); Z86.16 Personal history of COVID-19; G47.33 Obstructive sleep apnea (adult) (pediatric); E74.39 Other disorders of intestinal carbohydrate absorption; E66.01 Morbid (severe) obesity due to excess calories; Z68.44 Body mass index [BMI] 60.0-69.9, adult
CPT/HCPCS: 11042; 99213; G0463

== ENCOUNTER → 2021-08-28 10:29 | Outpatient (CLI) | payer BC, SELFPAY | PROVIDERS: PCP Physician Assistant; Visit Provider Physician Assistant | DX: G47.33 Obstructive sleep apnea (adult) (pediatric) (principal); J18.9 Pneumonia, unspecified organism | CPT/HCPCS: 71250; 95811 ==

== ENCOUNTER → 2021-08-28 18:01 | Outpatient (CLI) | payer BC, SELFPAY ==
--- NOTE | 2021-08-28 18:06 | CT_ITS ---
STUDY: CT Chest W/O Contrast Injection 08/28/2021 6:53 PM REASON FOR EXAM: Female, 51 years old. postinflammatory fibrosis -- PNA SOB Individualized dose optimization techniques were used for this CT. TECHNIQUE: Transaxial imaging was performed withoutIV contrast material. COMPARISON: Prior comparison studies are not available for review at this time. FINDINGS: There are degenerative changes of the shoulders. There is no pneumothorax. There is no demonstrated pleural abnormality. Residual peripherally located groundglass infiltrates are noted. 12 mm infiltrate in the right lower lobe. Normal heart and pericardium. Normal mediastinum. Normal hilar regions. Normal pulmonary arteries. Normal aorta arch and descending thoracic aorta. There are multi-level degenerative changes of the thoracic spine. There are no acute findings of the upper abdomen. CT/Chest without Contrast IMPRESSION: Bilateral pneumonia is very mild. Electronically Signed: Tod Vergara MD at 18:56 EDT , Service support ,
== END ==
PROVIDERS: PCP Physician Assistant; Visit Provider Internal Medicine Critical Care Medicine
DX: J95.851 Ventilator associated pneumonia (principal); E66.9 Obesity, unspecified; R06.00 Dyspnea, unspecified
CPT/HCPCS: 71250

== ENCOUNTER 2021-09-03 08:56 | Outpatient (RCR) | payer BC, SELFPAY ==
--- NOTE | 2021-09-04 12:54 | HP.OTEVAL_ITS ---
Patient's Visit Information PHILLIP GARCIA is a 51 year old F, referred to Occupational Therapy by VJ Maloney, with a diagnosis of LE lymphedema. Date of Evaluation: 09/03/21 Occupational Therapist: Ashley Sosa, SUZY/Jeannette, CHT - Subjective This 51 year old female was seen for OT eval with dx of BLE lymphedema- pt states swelling for 8-9 months- pts tried water pill but no change in fluid at all did not even urinate more with the water pill - pt states she did get Covid May and was in ICU on vent for 14 days and was in hospital for about 4 weeks. pt went to rehab at [facility] for 4weeks and currently on home therapy since Aug.03. pt has OT and Physical therapy and a nurse to work on bed sore- and going to wound clinic in [place] a week. pt states when she was in the hospital her swelling was better but now that she is home swelling is worse. pt states her legs get warm and red to touch. pt states when she was in [place] she lost 65# and pt states started to gain wt. back when she was on the Rehab unit- pt states in all currently she has gained back 40#. pt did have a rollator prior to hospital stay but only used it in her home when she was tired- but now she is using it all the time. 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 pt bought wraps off the internet and wanted to know if they would help her legs- reports her will help if needed. - Lymphedema (Circumferential Measure) Mid-foot: right 28cm left 28cm Ankle: right 38cmm left 33cm Lower calf: right 53cm left 53 Largest calf: right 73cm left 76 Below knee: right 69cm left 73cm Above knee: right 96cm left 100cm Mid-thigh: right 100cm left 105 cm Lower Exremity Comments: pt demo with bilateral LE fluid retention - Goals Demonstrate a 20% reduction in edema by d/c: Yes Demonstrate adequate knowledge skin care/prec by 2nd week: Yes Demonstrate adequate knowledge therapeutic exercises by d/c: Yes Select approp compression garment w/donning/care/wear by d/c: Yes - Rehabilitation General Assessment: pt demo with LE swelling and in need of OT services to assist pt in mtg of LE edema- pt states she would like to start with the [facility] why weight program to assist in her wt. loss journey, but has not scheduled it due to anticipation of bad weather in Oct. ( therapist advised pt to schedule now as she has two - three months prior to weather getting bad). Therapist ed. pt on use of compression alternative velcro closure devices to assist in fluid circulation- gave pt handout- pt receptive but due to limb size pt may not fit in it - therapist rec'd measuring her legs in AM when limbs are at their smallest- pt agreed. Therapist ed. pt that [facility] is not a DME provider and we could not order this for her- she can reach out to DME providers close to her home. Pt agreed. therapist ed. on lymphedema stimulation exercises and need of movement every hour- pt demo understanding pt has been performing some of the exercise with her current physical therapist-. Therapist ed. pt that use of pool or water aerobics is a good exercise to assist with fluid circulation- pt agree and states there is a [facility] where she lives she could go to once her wound on her back heals. pt receptive to POC- and states she will initiate purchases of compression hose, or Velcro closure device along with lymph stim ex. and initiate of pool aerobics once her wound on her back is healed. pt to return when she get compression garments. or she will call for questions Rehabilitation Potential: Questionable - Anticipated Interventions Education re Diagnosis, Manual Lymph Drainage, Education re Life-long lymphedema Management, Education re Skin Care and Precautions, Education re Correct Donning Tech,Care&Wearing Sched Comp Garments, Home Program - Visit Plan TEXT: Thank you for the opportunity to evaluate your patient. For Medicare and Medicare HMO plans, please review the plan of care and approve it. It will need to be FAXED BACK to us at [phone] for Medicare purposes. Please let me know if there are questions or concerns regarding this plan of care. Physician Signature: Date:
--- NOTE | 2021-12-10 09:24 | HP.OT.NRP ---
PHILLIP GARCIA was seen in my office for initial evaluation on 09/03/21. The following Plan of Care was established for this patient: Anticipated Interventions: Education re Diagnosis, Manual Lymph Drainage, Education re Life-long lymphedema Management, Education re Skin Care and Precautions, Education re Correct Donning Tech,Care&Wearing Sched Comp Garments, Home Program This patient was last seen in our office 09/03/21. Pertinent comments regarding their Occupational therapy will appear below: pt seen for eval only- no follow up apt was scheduled - due to time lapse in services pt d.c. At this point I will be discontinuing this patient from occupational therapy. I would be happy to see this patient again in the future if found appropriate by the physician. Thank you! Ashley Sosa, OTR/L, CHT
== END 2021-09-03 19:00 | disposition home or self-care (01) ==
LOC: OT 08:56
PROVIDERS: PCP Physician Assistant; Referring Provider Physician Assistant; Visit Provider Physician Assistant
DX: R53.1 Weakness (principal); I89.0 Lymphedema, not elsewhere classified; Z86.16 Personal history of COVID-19
CPT/HCPCS: 97166

== ENCOUNTER 2021-09-25 08:15 | Outpatient (RCR) | payer BC, SELFPAY ==
[2021-08-30 00:37] VITALS: BP 149/84; PULSE 65; RESP 16; TEMP 36.5; BMI 67.7
[2021-09-03 13:32] VITALS: BP 155/71; PULSE 84; RESP 24; TEMP 36.4; BMI 67.7
--- NOTE | 2021-09-03 17:40 | PCM.WC.PN ---
History of Present Illness Date of Service: 09/03/21 Chief Complaint: Non-healing wound in a skin fold on the back. Jenna was recently a pt in the rehab unit at [facility] for debility due to recent COVID PNA, MRSA PNA, prolonged intubation, MIRIAM and sepsis. At presentation to the rehab unit she had a decubitus ulcer on the R buttock that has since healed and an ulceration located in a deep skin fold on her back. this wound was difficult to treat because the skin fold was very deep initially and it was difficult to get a dressing in there. There was a lot of maceration due to sweating and DC. She lost 17 lbs while in rehab and the skin fold is not nearly as deep now. She was discharged from the rehab unit last week and the dressing on the back wound was Aquacel. She is following up in the [facility] today so that we can continue tx of the ulceration until the wound is healed. PMH is significant for morbid obesity, MIGUEL, anxiety/depression, glucose intolerance. Subjective Subjective Returns to the wound care center today for a follow-up visit for the nonhealing wound in the skin fold on her back. Her last visit was 08/20/2021. She denies fevers/chills/night sweats. The current dressing is Aquacel Ag which is covered with dry gauze and secured with tape. Her changes the dressing once daily. She tells me that she has been released by her [employer] to [employer] on 09/16/21. She is a little anxious about this but, she is not perseverating on this. She recently had a great visit with her dtr and she has decided to follow up with the [facility] program here at the hospital. When her back is healed she plans on coming to [place] to continue PT in the pool at [facility]. She has as much more positive outlook on life and I think she will be better able to set boundaries at work. She is upset that her weight is going up rather than down but, she has increasing edema of the LE's and this had significantly improved while she was on the rehab unit because we were applying PROMISE wraps to the legs to provide compression. She met with the lymphedema therapist and is disappointed that no lymphedema pumps were ordered. She received some education on exercise and things to treat lymphedema but nothing was mentioned about Compression wraps or lymphedema pumps. She was seen by Dr. Johnson and PFT's were done and a CT scan of the chest. 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 She is not coughing. She is not requiring oxygen at night. She had a titration study for CPAP and a RX was made for BIPAP with IPAP of 16 and an EPAP of 12. PLMS was responsible for many of the arousals. Spirometry was suggestive of a restrictive impairment. Lung volumes would need to be completed to confirm the presence of a restriction however the diffusing capacity was significantly reduced. There was no evidence of large airways obstructive ventilatory defect and she had no response to aerosolized bronchodilators. Alex Porter wants to do a 6 minute walk and if she does not desaturate the oxygen can be discontinued. Objective Data Objective Data Vital Signs: Vital Signs Temp Pulse Resp BP 97.6 F L 84 24 H 155/71 H 09/03/21 13:32 09/03/21 13:32 09/03/21 13:32 09/03/21 13:32 Weight: 407 lb Body Mass Index (BMI) 67.7 Charges/Coding Procedures Integumentary [id number]: [id number] Renae subq tissue 20 sq cm/< Physical Exam Skin Wound Narrative: The wound located in the lower thoracic/lumbar area in a skin fold over the spine continues to contract. There is no tunnelling and no undermining. There is no erythema around the wound and no purulent DC. There is a small amount of serosanguineous fluid. Following debridement at her last visit the wound measured 0.5 cm x 3.2 cm x 0.5 cm. (L,W,D) It now measure 0.5 cm X 2 cm X 0.4cm. the wound margins are not rolled under and did not need debridement today. Debridement Note Debridement Note Wound debrided: mid back wound located in a skin fold Type of Debridement: Excisional debridement Anesthesia Used: 4% Lidocaine Solution Depth: Down to and including healthy tissue and in the subcutaneous layer Percentage of wound debrided: 100 Instrument Used: 3mm curette Tissue Removed: biofilm and a small amount of slough Severity: Limited To Skin Breakdown Amount of bleeding with debridement: Mild Bleeding Controlled with: Pressure Patient tolerated procedure: Patient tolerated procedure well Operative Diagnosis: non-healing wound on the back due to pressure from the folds of skin it sit Post-Debridement Measurements and Additional Note: Post-Debridement Measurements/Treatment - Nurse 1 - General Ulcer Assessment Start: 09/03/21 13:32 Freq: Status: Active Protocol: BRIDGET Activity Type Activity Date Activity User E-Sign Co-Sign Detail Recorded Client Recorded Date Recorded By Document 09/03/21 13:32 DL [id number] 09/03/21 13:38 DL 09/03/21 13:32 - Today's Visit Information Type of service Follow-up Visit (Physician/INVESTIGATIONS DIRECTOR ) Arrival Mode Ambulatory, Walker Transfer Assistance None Patient Identification Verified (Name & Yes ) Patient Requires Transmission-Based No Precautions Height and Weight Body Mass Index (BMI) 67.7 BMI Classification Obese Vital Signs Temperature (97.8 F-99.1 F) 97.6 F L Temperature Source Temporal Pulse Rate (60-100) 84 Pulse Location Monitor Respiratory Rate (12-18) 24 H Respiratory rate source Observation Blood Pressure (90/60-120/80) 155/71 H Blood Pressure Mean (mm Hg) 99 Source Monitor History Since Last Visit- (Skip if this is Patient's initial visit) Have you changed medications since your No last visit? Any new allergies or adverse reactions No Had a fall/change in ADL's that may No increase risk of falls Signs or symptoms of abuse and/or No neglect since last visit Have you been in the hospital since your No last visit? Has dressing in place as prescribed Yes Has compression in place as prescribed N/A Has offloadiing in place as prescribed N/A Experienced any changes in pain level or No management Pain Scale: 0-10 Numeric Is Patient Pain Free? Yes - Nurse 1 - General Ulcer Measurement Start: 09/03/21 13:32 Freq: Status: Active Protocol: Activity Type Activity Date Activity User E-Sign Co-Sign Detail Recorded Client Recorded Date Recorded By Document 09/03/21 13:32 DL [id number] 09/03/21 13:38 DL 09/03/21 13:32 Wound Center Nurse 1 #1- MID BACK -Current Size (cm) - Length 0.3 -Current Size (cm) - Width 1.9 -Current Size (cm) - Depth 0.4 -Total Square Cm 0.57 -Photo Taken No -Exudate Amt Medium -Exudate Type Serosanguineous -Wound Margin Distinct, Outline Attached -Granulation Amt None Present (0 %) -Necrosis Amt Large (67-100%) -Necrotic Tissue Type Adherent Slough -Structure Exposed N/A -Texture (Elo-wound Skin Appearance) Scarring -Moisture (Elo-wound Skin Appearance) Assessed -Color (Elo-wound Skin Appearance) Rubor -Temperature (Elo-wound Skin No Abnormality Appearance) (Pt Warm) -Tenderness on Palpation (Elo-wound No Skin Appearance) -Ulcer Cleansing Rinsed/ Irrigated with Saline -Foul Odor after Cleansing No -Anesthetic Used 5% Lidocaine Gel WC - Nurse 2 - General Ulcer CM Notes Start: 09/03/21 13:32 Freq: Status: Active Protocol: Activity Type Activity Date Activity User E-Sign Co-Sign Detail Recorded Client Recorded Date Recorded By Document 09/03/21 14:17 MW [id number] 09/03/21 14:20 MW 09/03/21 14:17 Wound Center Nurse 2 -Time 14:18 -Correct Patient Yes -Correct Side, Site, Position Yes -Correct Procedure Yes -Procedure Performed Yes -Type of Procedure Debridement -Clinical Debridement Subcutaneous -Tissue Removed Subcutaneous -Post Debridement (cm) - Length 0.5 -Post Debridement (cm) - Width 2.0 -Post Debridement (cm) - Depth 0.4 -Total Square (Post) (cm) 1.00 -Area of Debridement (cm) - Length 0.5 -Area of Debridement (cm) - Width 2.0 -Total Square (Area) (cm) 1.00 -Tunneling No -Undermining/Tunneling No -Circular Undermining No -Wound/Ulcer Outcome Not Healed -Ulcer Cleansing Rinsed/ Irrigated with Saline -Foul Odor after Cleansing No -Bioengineered Tissue No -Bleeding Controlled with Pressure -Offloading No -Treatment Response Procedure Tolerated Well -Debridement - Subq, 1st 20sq cm Yes Pain Scale: 0-10 Numeric Is Patient Pain Free? Yes - Nurse 3 - General Ulcer D/C NN Start: 09/03/21 13:32 Freq: Status: Active Protocol: Activity Type Activity Date Activity User E-Sign Co-Sign Detail Recorded Client Recorded Date Recorded By Document 09/03/21 14:39 [facility] [id number] 09/03/21 14:40 BM 09/03/21 14:39 Wound Care Nurse 3 #1- MID BACK -Ulcer Cleansing Rinsed/ Irrigated with Saline -Foul Odor after Cleansing No -Primary Dressing Applied Aquacel AG 4x4 -Primary Dressing Covered/Secured with Dry Gauze, Secured with Tape -Aquacel AG 4x4 1 Treatment Response Procedure Tolerated Well Pain Scale: 0-10 Numeric Is Patient Pain Free? Yes WC - Visit Discharge Discharge Condition Stable Ambulatory Status Ambulatory, Walker Transportation Private Auto Assessment/Plan Assessment/Plan (1) Non-healing wound: (2) Super obesity: CODE(S): E66.9 - Obesity, unspecified (3) Depression: CODE(S): F32.9 - Major depressive disorder, single episode, unspecified (4) Anxiety: CODE(S): F41.9 - Anxiety disorder, unspecified (5) MIGUEL (obstructive sleep apnea): CODE(S): G47.33 - Obstructive sleep apnea (adult) (pediatric) (6) IBS (irritable bowel syndrome): CODE(S): K58.9 - Irritable bowel syndrome without diarrhea (7) Hypoxemia requiring supplemental oxygen: CODE(S): R09.02 - Hypoxemia; Z99.81 - Dependence on supplemental oxygen (8) Lymphedema associated with obesity: CODE(S): I89.0 - Lymphedema, not elsewhere classified; E66.9 - Obesity, unspecified (9) PLMD (periodic limb movement disorder): CODE(S): G47.61 - Periodic limb movement disorder PLAN: 1. She is still having some anxiety and depression but it is much better than it was at admission to the rehab unit. She is no longer experiencing irritable bowel. Although she is anxious somewhat about returning to work she is not perseverating on this and she is taking steps to improve her health, lose weight and make herself a priority. Will increase the Effexor to 225 mg daily since she is having no adverse side effects. This is definitely helping with appetite suppression as well as helping with depression and chronic joint pains. She requested a RX for Effexor and I sent one to her pharmacy but, I told her that in the future her PCP will be ordering her medications. 2. She has had a titration study and will need to have the machine she has recalibrated. I suspect the PMLD will improve with the change in the BIPAP settings. She is not c/o restless leg. 3. 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 She also had MRSA PNA while on the ventilator. 4. We will order Lymphedema pumps for her.......although I have only seen her a couple times in wound care I saw her daily while she was on acute rehab and she has significant lymphedema due to chronic venous insufficiency related to obesity. Her legs are stiff and aching at the end of the day and and she is at risk for breakdown due to the venous HTN and inelasticity of the skin of the distal LE's BL. The edema is non-pitting and there is stasis hyperpigmentation and thickened scales on the legs due to hyperkeratosis. 5. She will be getting a 6 minute walk test going forward to see if she is still requiring oxygen. She is no longer requiring at night. She will follow up with Dr. Johnson after the 6 minute walk.
[2021-09-11 10:11] VITALS: BP 141/89; PULSE 94; TEMP 36.2; BMI 67.7
--- NOTE | 2021-09-11 10:57 | PN.PCM_ITS ---
History of Present Illness Date of Service: 09/11/21 Chief Complaint: Non-healing wound in a skin fold on the back. Jenna was recently a pt in the rehab unit at [facility] for debility due to recent COVID PNA, MRSA PNA, prolonged intubation, MIRIAM and sepsis. At presentation to the rehab unit she had a decubitus ulcer on the R buttock that has since healed and an ulceration located in a deep skin fold on her back. this wound was difficult to treat because the skin fold was very deep initially and it was difficult to get a dressing in there. There was a lot of maceration due to sweating and DC. She lost 17 lbs while in rehab and the skin fold is not nearly as deep now. She was discharged from the rehab unit last week and the dressing on the back wound was Aquacel. She is following up in the [facility] today so that we can continue tx of the ulceration until the wound is healed. PMH is significant for morbid obesity, MIGUEL, anxiety/depression, glucose intolerance. History of Wound: The wound today has skin buds in the base and appears clean with no redness around it no sign of infection. Patient denies any kind of pain Subjective Subjective Patient denies any pain is having to go back to work next week so is wondering how she is posterior dressings I suggested she shower at night rather than in the morning and have her do the dressings that night it be better to leave the dressing on hold for 24 hours and not having anything on it for 24 hours Objective Data Objective Data Small open area at the crease of her waist clean with skin buds no sign of infection doing well no odor Vital Signs: Vital Signs Temp Pulse Resp BP 97.1 F L 94 24 H 141/89 H 09/11/21 10:11 09/11/21 10:11 09/03/21 13:32 09/11/21 10:11 Weight: 407 lb Body Mass Index (BMI) 67.7 Physical Exam Narrative alert, oriented X 3. Good eye contact. Is more confident in her abilities to progress toward her goals. Pleasant and well groomed. HEENT moist oral mucous membranes Neck supple Carotids: normal carotid upstroke; Negative for bruit Chest Chest: symmetrical chest wall rise Resp normal respiratory effort, normal air movement, no use of accessory muscles and clear to auscultation bilaterally Effort and Inspection: able to speak in complete sentences Cardio regular rate, regular rhythm, no murmurs, no rub and no gallops Cardio Narrative: HR increases and RR increases 15-20 beats after walking 50 ft. GI normal to inspection, nondistended, normoactive bowel sounds, soft to palpation, non-tender and non-distended GI Narrative: She never complains to me about abd pain now or diarrhea now that she has been on the Effexor. Extremity no calf tenderness Extremity Narrative: There is edema of the LE's and when the legs are dependent there is venous hypertension and they look purple/red to her and I explained this is due to venous insufficiency when dependent and the way to control this is to provide compression. When she follows up with me in the wound care center I will get Circaids ordered for her to control the edema and prevent lymphedema from developing. Skin Skin Narrative: The fissure in the skin fold on the back is still open but is smaller. It is much easier to open the skin fold and apply the dressing since she has lost 17 pounds. there is still some slough and she is going to follow up with me in the wound care center next Thursday. Rashes: no rashes Wound Narrative: Neuro oriented x3, CN's II-XII intact bilaterally and moves all extremities Neuro Narrative: + Phalen's on the R. the R side is weaker than the left and she is R hand dominant. I suspect she may have had a stroke while on the ventilator for 2 weeks. No dysarthria and no facial drrop. Motor Exam: strength 5/5 throughout Psych mental status grossly normal, thought process normal, cooperative, affect normal and denies suicidal ideation Appearance: grossly normal, appropriate and well kempt Activity / Motor Behavior: appropriate eye contact Speech: normal speech Debridement Note Debridement Note Wound debrided: Lower back wound Type of Debridement: Excisional debridement Anesthesia Used: 5% Lidocaine Gel Depth: Down to and including healthy tissue Percentage of wound debrided: 100 Instrument Used: 3mm curette Tissue Removed: Fibrin Severity: Limited To Skin Breakdown Amount of bleeding with debridement: Mild Bleeding Controlled with: Pressure Patient tolerated procedure: Patient tolerated procedure well Post-Debridement Measurements and Additional Note: Post-Debridement Measurements/Treatment ELVIS - Nurse 1 - General Ulcer Assessment Start: 09/03/21 13:32 Freq: Status: Active Protocol: WC.LOWEXT Activity Type Activity Date Activity User E-Sign Co-Sign Detail Recorded Client Recorded Date Recorded By Document 09/03/21 13:32 DL [id number] 09/03/21 13:38 DL Document 09/11/21 10:11 ADAM [id number] 09/11/21 10:12 KR 09/03/21 09/11/21 13:32 10:11 WC - Today's Visit Information Type of service Follow-up Visit Follow-up Visit (Physician/MERRY GO ROUND ATTENDANT (Physician/MERRY GO ROUND ATTENDANT ) ) Arrival Mode Ambulatory, Ambulatory, Walker Walker Transfer Assistance None Patient Identification Verified (Name & Yes Yes ) Patient Requires Transmission-Based No Precautions Height and Weight Body Mass Index (BMI) 67.7 67.7 BMI Classification Obese Obese Vital Signs Temperature (97.8 F-99.1 F) 97.6 F L 97.1 F L Temperature Source Temporal Temporal Pulse Rate (60-100) 84 94 Pulse Location Monitor Monitor Respiratory Rate (12-18) 24 H Respiratory rate source Observation Monitor Blood Pressure (90/60-120/80) 155/71 H 141/89 H Blood Pressure Mean (mm Hg) 99 106 Source Monitor Monitor Position Semi-Fowlers Blood Pressure Location Left Arm History Since Last Visit- (Skip if this is Patient's initial visit) Have you changed medications since your No No last visit? Any new allergies or adverse reactions No No Had a fall/change in ADL's that may No No increase risk of falls Signs or symptoms of abuse and/or No No neglect since last visit Have you been in the hospital since your No No last visit? Has dressing in place as prescribed Yes Yes Has compression in place as prescribed N/A N/A Has offloadiing in place as prescribed N/A N/A Experienced any changes in pain level or No No management Left Footwear Regular Shoe Right Footwear Regular Shoe Pain Scale: 0-10 Numeric Is Patient Pain Free? Yes Yes - Nurse 1 - General Ulcer Measurement Start: 09/03/21 13:32 Freq: Status: Active Protocol: Activity Type Activity Date Activity User E-Sign Co-Sign Detail Recorded Client Recorded Date Recorded By Document 09/03/21 13:32 DL [id number] 09/03/21 13:38 DL Document 09/11/21 10:11 ADAM [id number] 09/11/21 10:12 KR 09/03/21 09/11/21 13:32 10:11 Wound Center Nurse 1 #1- MID BACK -Current Size (cm) - Length 0.3 0.5 -Current Size (cm) - Width 1.9 1.5 -Current Size (cm) - Depth 0.4 0.2 -Total Square Cm 0.57 0.75 -Photo Taken No -Exudate Amt Medium Small -Exudate Type Serosanguineous Serosanguineous -Wound Margin Distinct, Distinct, Outline Outline Attached Attached -Granulation Amt None Present (0 Small (1-33%) %) -Granulation Quality Red -Necrosis Amt Large (67-100%) Medium (34-66%) -Necrotic Tissue Type Adherent Slough Adherent Slough -Structure Exposed N/A -Texture (Elo-wound Skin Appearance) Scarring Assessed, Scarring -Moisture (Elo-wound Skin Appearance) Assessed No Abnormality, Assessed -Color (Elo-wound Skin Appearance) Rubor No Abnormality, Assessed -Temperature (Elo-wound Skin No Abnormality No Abnormality Appearance) (Pt Warm) (Pt Warm) -Tenderness on Palpation (Elo-wound No No Skin Appearance) -Ulcer Cleansing Rinsed/ Rinsed/ Irrigated with Irrigated with Saline Saline -Foul Odor after Cleansing No No -Anesthetic Used 5% Lidocaine 5% Lidocaine Gel Gel WC - Nurse 2 - General Ulcer CM Notes Start: 09/03/21 13:32 Freq: Status: Active Protocol: Activity Type Activity Date Activity User E-Sign Co-Sign Detail Recorded Client Recorded Date Recorded By Document 09/03/21 14:17 MW [id number] 09/03/21 14:20 MW Document 09/11/21 10:18 MW [id number] 09/11/21 10:19 MW 09/03/21 09/11/21 14:17 10:18 Wound Center Nurse 2 #1- MID BACK -Time 14:18 10:18 -Correct Patient Yes Yes -Correct Side, Site, Position Yes Yes -Correct Procedure Yes Yes -Procedure Performed Yes Yes -Type of Procedure Debridement Debridement -Clinical Debridement Subcutaneous Subcutaneous -Tissue Removed Subcutaneous Subcutaneous -Post Debridement (cm) - Length 0.5 0.4 -Post Debridement (cm) - Width 2.0 1.5 -Post Debridement (cm) - Depth 0.4 0.2 -Total Square (Post) (cm) 1.00 0.60 -Area of Debridement (cm) - Length 0.5 0.4 -Area of Debridement (cm) - Width 2.0 1.5 -Total Square (Area) (cm) 1.00 0.60 -Tunneling No No -Undermining/Tunneling No No -Circular Undermining No No -Wound/Ulcer Outcome Not Healed Not Healed -Ulcer Cleansing Rinsed/ Rinsed/ Irrigated with Irrigated with Saline Saline -Foul Odor after Cleansing No No -Bioengineered Tissue No No -Bleeding Controlled with Pressure Pressure -Offloading No No -Treatment Response Procedure Procedure Tolerated Well Tolerated Well -Debridement - Subq, 1st 20sq cm Yes Yes Pain Scale: 0-10 Numeric Is Patient Pain Free? Yes - Nurse 3 - General Ulcer D/C NN Start: 09/03/21 13:32 Freq: Status: Active Protocol: Activity Type Activity Date Activity User E-Sign Co-Sign Detail Recorded Client Recorded Date Recorded By Document 09/03/21 14:39 [facility] [id number] 09/03/21 14:40 [facility] Document 09/11/21 10:27 MW [id number] 09/11/21 10:28 MW 09/03/21 09/11/21 14:39 10:27 Wound Care Nurse 3 #1- MID BACK -Ulcer Cleansing Rinsed/ Rinsed/ Irrigated with Irrigated with Saline Saline -Foul Odor after Cleansing No No -Negative Pressure Wound Therapy N/A -Primary Dressing Applied Aquacel AG 4x4 Fibracol Plus 4x4 -Primary Dressing Covered/Secured with Dry Gauze, Dry Gauze, Secured with Secured with Tape Tape -Aquacel AG 4x4 1 -Fibracol Plus 4x4 1 Treatment Response Procedure Procedure Tolerated Well Tolerated Well Pain Scale: 0-10 Numeric Is Patient Pain Free? Yes Yes Teaching: Wound Center Dressing Your Wound -Person Taught Patient -Teaching Method Discussion -Response to teaching Verbalize understanding WC - Visit Discharge Discharge Condition Stable Stable Ambulatory Status Ambulatory, Ambulatory, Walker Walker Transportation Private Auto Private Auto Accompanied by self Medication Reconcilliation completed & No provided to patient/care provider Clinical Summary of Care Provided Yes Assessment/Plan Assessment/Plan (1) Non-healing wound: PLAN: Wash area with antibacterial soap please for recall and base of wound moistened cover with gauze and tape every day Follow-up in 2 weeks (2) Super obesity: CODE(S): E66.9 - Obesity, unspecified
[2021-09-25 08:42] VITALS: BP 164/86; PULSE 103; TEMP 36.2; BMI 67.7
--- NOTE | 2021-09-25 10:26 | PCM.WC.PN ---
History of Present Illness Date of Service: 09/25/21 Chief Complaint: Non-healing wound in a skin fold on the back. Jenna was recently a pt in the rehab unit at [facility] for debility due to recent COVID PNA, MRSA PNA, prolonged intubation, MIRIAM and sepsis. At presentation to the rehab unit she had a decubitus ulcer on the R buttock that has since healed and an ulceration located in a deep skin fold on her back. this wound was difficult to treat because the skin fold was very deep initially and it was difficult to get a dressing in there. There was a lot of maceration due to sweating and DC. She lost 17 lbs while in rehab and the skin fold is not nearly as deep now. She was discharged from the rehab unit last week and the dressing on the back wound was Aquacel. She is following up in the [facility] today so that we can continue tx of the ulceration until the wound is healed. PMH is significant for morbid obesity, MIGUEL, anxiety/depression, glucose intolerance. History of Wound: The wound today has almost completely closed except for one small dot on the left side has developed a lot of keloiding of the skin on the lower back which is causing her some pain at times. We will finish up with the Promogran probably in the next week or so she is doing a good job its a pinhole that this needs to be only filled Progress of Wound: Progression of the wound has been very good she is almost healed 1 little dot of an area needs to be completed . Subjective Subjective Patient very pleased with results Objective Data Objective Data We will continue using the Promogran to the dotted area suggested to patient to start using vitamin E to the skin and massaging the keloid area. Vital Signs: Vital Signs Temp Pulse Resp BP 97.1 F L 103 H 24 H 164/86 H 09/25/21 08:42 09/25/21 08:42 09/03/21 13:32 09/25/21 08:42 Weight: 407 lb Body Mass Index (BMI) 67.7 Lab / Micro Data Attestation: I reviewed the patient's lab results. Physical Exam Narrative alert, oriented X 3. Good eye contact. Is more confident in her abilities to progress toward her goals. Pleasant and well groomed. HEENT moist oral mucous membranes Neck supple Carotids: normal carotid upstroke; Negative for bruit Chest Chest: symmetrical chest wall rise Resp normal respiratory effort, normal air movement, no use of accessory muscles and clear to auscultation bilaterally Effort and Inspection: able to speak in complete sentences Cardio regular rate, regular rhythm, no murmurs, no rub and no gallops Cardio Narrative: HR increases and RR increases 15-20 beats after walking 50 ft. GI normal to inspection, nondistended, normoactive bowel sounds, soft to palpation, non-tender and non-distended GI Narrative: She never complains to me about abd pain now or diarrhea now that she has been on the Effexor. Extremity no calf tenderness Extremity Narrative: There is edema of the LE's and when the legs are dependent there is venous hypertension and they look purple/red to her and I explained this is due to venous insufficiency when dependent and the way to control this is to provide compression. When she follows up with me in the wound care center I will get Circaids ordered for her to control the edema and prevent lymphedema from developing. Skin Skin Narrative: The fissure in the skin fold on the back is still open but is smaller. It is much easier to open the skin fold and apply the dressing since she has lost 17 pounds. there is still some slough and she is going to follow up with me in the wound care center next Thursday. Rashes: no rashes Wound Narrative: Neuro oriented x3, CN's II-XII intact bilaterally and moves all extremities Neuro Narrative: + Phalen's on the R. the R side is weaker than the left and she is R hand dominant. I suspect she may have had a stroke while on the ventilator for 2 weeks. No dysarthria and no facial drrop. Motor Exam: strength 5/5 throughout Psych mental status grossly normal, thought process normal, cooperative, affect normal and denies suicidal ideation Appearance: grossly normal, appropriate and well kempt Activity / Motor Behavior: appropriate eye contact Speech: normal speech Debridement Note Debridement Note Wound debrided: Lower back Type of Debridement: Excisional debridement Anesthesia Used: 5% Lidocaine Gel Depth: Down to and including healthy tissue Percentage of wound debrided: 100 Instrument Used: - (1 millimeter curette) Tissue Removed: Fibrin Severity: Limited To Skin Breakdown Amount of bleeding with debridement: Mild Bleeding Controlled with: Compression and gauze Patient tolerated procedure: Patient tolerated procedure well Post-Debridement Measurements and Additional Note: Post-Debridement Measurements/Treatment WC - Nurse 1 - General Ulcer Assessment Start: 09/03/21 13:32 Freq: Status: Active Protocol: BRIDGET Activity Type Activity Date Activity User E-Sign Co-Sign Detail Recorded Client Recorded Date Recorded By Document 09/03/21 13:32 DL [id number] 09/03/21 13:38 DL Document 09/11/21 10:11 KR [id number] 09/11/21 10:12 KR Document 09/25/21 08:42 AK [id number] 09/25/21 08:44 AK 09/03/21 09/11/21 09/25/21 13:32 10:11 08:42 WC - Today's Visit Information Type of service Follow-up Visit Follow-up Visit Follow-up Visit (Physician/BRUSH AND BROOM CLIPPER (Physician/BRUSH AND BROOM CLIPPER (Physician/BRUSH AND BROOM CLIPPER ) ) ) Arrival Mode Ambulatory, Ambulatory, Ambulatory, Walker Walker Walker Transfer Assistance None Patient Identification Verified (Name & Yes Yes Yes ) Patient Requires Transmission-Based No No Precautions Safety Precautions NA Height and Weight Body Mass Index (BMI) 67.7 67.7 67.7 BMI Classification Obese Obese Obese Vital Signs Temperature (97.8 F-99.1 F) 97.6 F L 97.1 F L 97.1 F L Temperature Source Temporal Temporal Temporal Pulse Rate (60-100) 84 94 103 H Pulse Location Monitor Monitor Monitor Respiratory Rate (12-18) 24 H Respiratory rate source Observation Monitor Blood Pressure (90/60-120/80) 155/71 H 141/89 H 164/86 H Blood Pressure Mean (mm Hg) 99 106 112 Source Monitor Monitor Monitor Position Semi-Fowlers Blood Pressure Location Left Arm History Since Last Visit- (Skip if this is Patient's initial visit) Have you changed medications since your No No No last visit? Any new allergies or adverse reactions No No No Had a fall/change in ADL's that may No No No increase risk of falls Signs or symptoms of abuse and/or No No No neglect since last visit Have you been in the hospital since your No No No last visit? Has dressing in place as prescribed Yes Yes Yes Has compression in place as prescribed N/A N/A N/A Has offloadiing in place as prescribed N/A N/A N/A Experienced any changes in pain level or No No No management Left Footwear Regular Shoe Regular Shoe Right Footwear Regular Shoe Regular Shoe Pain Scale: 0-10 Numeric Is Patient Pain Free? Yes Yes WC - Nurse 1 - General Ulcer Measurement Start: 09/03/21 13:32 Freq: Status: Active Protocol: Activity Type Activity Date Activity User E-Sign Co-Sign Detail Recorded Client Recorded Date Recorded By Document 09/03/21 13:32 DL [id number] 09/03/21 13:38 DL Document 09/11/21 10:11 KR [id number] 09/11/21 10:12 KR Document 09/25/21 08:42 AK [id number] 09/25/21 08:44 AK 09/03/21 09/11/21 09/25/21 13:32 10:11 08:42 Wound Center Nurse 1 #1- MID BACK -Combined with other wound No -Current Size (cm) - Length 0.3 0.5 0.1 -Current Size (cm) - Width 1.9 1.5 0.1 -Current Size (cm) - Depth 0.4 0.2 0.1 -Total Square Cm 0.57 0.75 0.01 -Photo Taken No No -Epithelialization Medium 34-66% -Tunneling No -Undermining/Tunneling No -Circular Undermining No -Change in Wound Grade/Stage No -Exudate Amt Medium Small None Present -Exudate Type Serosanguineous Serosanguineous -Wound Margin Distinct, Distinct, Distinct, Outline Outline Outline Attached Attached Attached -Granulation Amt None Present (0 Small (1-33%) None Present (0 %) %) -Granulation Quality Red N/A -Slough/Fibrin No -Necrosis Amt Large (67-100%) Medium (34-66%) None Present (0 %) -Necrotic Tissue Type Adherent Slough Adherent Slough -Structure Exposed N/A N/A -Texture (Elo-wound Skin Appearance) Scarring Assessed, Assessed, Scarring Scarring -Moisture (Elo-wound Skin Appearance) Assessed No Abnormality, No Abnormality, Assessed Assessed -Color (Elo-wound Skin Appearance) Rubor No Abnormality, Assessed, Assessed Erythema -Temperature (Elo-wound Skin No Abnormality No Abnormality No Abnormality Appearance) (Pt Warm) (Pt Warm) (Pt Warm) -Tenderness on Palpation (Elo-wound No No Yes Skin Appearance) -Ulcer Cleansing Rinsed/ Rinsed/ Rinsed/ Irrigated with Irrigated with Irrigated with Saline Saline Saline -Foul Odor after Cleansing No No No -Anesthetic Used 5% Lidocaine 5% Lidocaine 5% Lidocaine Gel Gel Gel - Nurse 2 - General Ulcer CM Notes Start: 09/03/21 13:32 Freq: Status: Active Protocol: Activity Type Activity Date Activity User E-Sign Co-Sign Detail Recorded Client Recorded Date Recorded By Document 09/03/21 14:17 MW [id number] 09/03/21 14:20 MW Document 09/11/21 10:18 MW [id number] 09/11/21 10:19 MW Document 09/25/21 08:37 MW [id number] 09/25/21 08:40 MW 09/03/21 09/11/21 09/25/21 14:17 10:18 08:37 Wound Center Nurse 2 #1- MID BACK -Time 14:18 10:18 08:39 -Correct Patient Yes Yes Yes -Correct Side, Site, Position Yes Yes Yes -Correct Procedure Yes Yes Yes -Procedure Performed Yes Yes Yes -Type of Procedure Debridement Debridement Debridement -Clinical Debridement Subcutaneous Subcutaneous Subcutaneous -Tissue Removed Subcutaneous Subcutaneous Subcutaneous -Post Debridement (cm) - Length 0.5 0.4 0.2 -Post Debridement (cm) - Width 2.0 1.5 0.2 -Post Debridement (cm) - Depth 0.4 0.2 0.2 -Total Square (Post) (cm) 1.00 0.60 0.04 -Area of Debridement (cm) - Length 0.5 0.4 0.2 -Area of Debridement (cm) - Width 2.0 1.5 0.2 -Total Square (Area) (cm) 1.00 0.60 0.04 -Tunneling No No No -Undermining/Tunneling No No No -Circular Undermining No No No -Wound/Ulcer Outcome Not Healed Not Healed Not Healed -Ulcer Cleansing Rinsed/ Rinsed/ Rinsed/ Irrigated with Irrigated with Irrigated with Saline Saline Saline -Foul Odor after Cleansing No No No -Bioengineered Tissue No No No -Bleeding Controlled with Pressure Pressure Pressure -Offloading No No No -Treatment Response Procedure Procedure Procedure Tolerated Well Tolerated Well Tolerated Well -Debridement - Subq, 1st 20sq cm Yes Yes Yes Pain Scale: 0-10 Numeric Is Patient Pain Free? Yes Yes - Nurse 3 - General Ulcer D/C NN Start: 09/03/21 13:32 Freq: Status: Active Protocol: Activity Type Activity Date Activity User E-Sign Co-Sign Detail Recorded Client Recorded Date Recorded By Document 09/03/21 14:39 [facility] [id number] 09/03/21 14:40 BM Document 09/11/21 10:27 MW [id number] 09/11/21 10:28 MW Document 09/25/21 08:46 AK [id number] 09/25/21 08:47 AK 09/03/21 09/11/21 09/25/21 14:39 10:27 08:46 Wound Care Nurse 3 #1- MID BACK -Ulcer Cleansing Rinsed/ Rinsed/ Rinsed/ Irrigated with Irrigated with Irrigated with Saline Saline Saline -Foul Odor after Cleansing No No No -Negative Pressure Wound Therapy N/A N/A -Primary Dressing Applied Aquacel AG 4x4 Fibracol Plus NonAdherent 4x4 Contact Layer, Promogran -Primary Dressing Covered/Secured with Dry Gauze, Dry Gauze, Secured with Secured with Secured with Tape Tape Tape -Aquacel AG 4x4 1 -Fibracol Plus 4x4 1 -Promogran 1 Treatment Response Procedure Procedure Tolerated Well Tolerated Well Pain Scale: 0-10 Numeric Is Patient Pain Free? Yes Yes Teaching: Wound Center Dressing Your Wound -Person Taught Patient -Teaching Method Discussion -Response to teaching Verbalize understanding WC - Visit Discharge Discharge Condition Stable Stable Stable Ambulatory Status Ambulatory, Ambulatory, Ambulatory, Walker Walker Walker Transportation Private Auto Private Auto Private Auto Accompanied by self Medication Reconcilliation completed & No No provided to patient/care provider Clinical Summary of Care Provided Yes Yes Assessment/Plan Assessment/Plan (1) Non-healing wound: PLAN: Wash area with antibacterial soap Promogran to the base of wound moistened cover with gauze and tape every day Follow-up in 1 week May try using vitamin E massage to the healed area for the keloid effect of the skin (2) Super obesity: CODE(S): E66.9 - Obesity, unspecified
== END 2021-09-29 23:59 ==
LOC: WC 08:15
PROVIDERS: PCP Physician Assistant; Visit Provider Nurse Practitioner
DX: I87.2 Venous insufficiency (chronic) (peripheral) (principal); L98.421 Non-pressure chronic ulcer of back limited to breakdown of skin; I89.0 Lymphedema, not elsewhere classified; Z68.44 Body mass index [BMI] 60.0-69.9, adult; L91.0 Hypertrophic scar; E66.01 Morbid (severe) obesity due to excess calories; G47.61 Periodic limb movement disorder; Z99.81 Dependence on supplemental oxygen; K58.9 Irritable bowel syndrome, unspecified; G47.33 Obstructive sleep apnea (adult) (pediatric); F41.9 Anxiety disorder, unspecified; F32.9 Major depressive disorder, single episode, unspecified; Z86.16 Personal history of COVID-19
CPT/HCPCS: 11042

== ENCOUNTER 2021-10-02 08:22 | Outpatient (RCR) | payer BC, SELFPAY ==
[2021-09-30 00:28] VITALS: BP 164/86; PULSE 103; RESP 24; TEMP 36.2; BMI 67.7
[2021-10-02 08:23] VITALS: BP 150/64; PULSE 73; RESP 20; TEMP 35.3; BMI 67.7
--- NOTE | 2021-10-02 08:40 | PN.PCM_ITS ---
History of Present Illness Date of Service: 10/02/21 Chief Complaint: Non-healing wound in a skin fold on the back. Jenna was recently a pt in the rehab unit at [facility] for debility due to recent COVID PNA, MRSA PNA, prolonged intubation, MIRIAM and sepsis. At presentation to the rehab unit she had a decubitus ulcer on the R buttock that has since healed and an ulceration located in a deep skin fold on her back. this wound was difficult to treat because the skin fold was very deep initially and it was difficult to get a dressing in there. There was a lot of maceration due to sweating and DC. She lost 17 lbs while in rehab and the skin fold is not nearly as deep now. She was discharged from the rehab unit last week and the dressing on the back wound was Aquacel. She is following up in the [facility] today so that we can continue tx of the ulceration until the wound is healed. PMH is significant for morbid obesity, MIGUEL, anxiety/depression, glucose intolerance. History of Wound: The wound today has almost completely closed except for one small dot on the left side has developed a lot of keloiding of the skin on the lower back which is causing her some pain at times. We will finish up with the Promogran probably in the next week or so she is doing a good job its a pinhole that this needs to be only filled Progress of Wound: Today the wound is closed and patient is being discharged from the wound center. Some scar tissue is there it does bother her. Suggested using vitamin E to massage into the skin and just doing massage and breakdown the roach the keloiding. Subjective Subjective Patient is very happy that is healed still has some pain with the scar tissue Objective Data Objective Data Wound is closed patient will be discharged from the wound center Vital Signs: Vital Signs Temp Pulse Resp BP 95.5 F L 73 20 H 150/64 H 10/02/21 08:23 10/02/21 08:23 10/02/21 08:23 10/02/21 08:23 Oxygen Delivery Method Room Air Weight: 407 lb Body Mass Index (BMI) 67.7 Physical Exam Narrative alert, oriented X 3. Good eye contact. Is more confident in her abilities to progress toward her goals. Pleasant and well groomed. HEENT moist oral mucous membranes Neck supple Carotids: normal carotid upstroke; Negative for bruit Chest Chest: symmetrical chest wall rise Resp normal respiratory effort, normal air movement, no use of accessory muscles and clear to auscultation bilaterally Effort and Inspection: able to speak in complete sentences Cardio regular rate, regular rhythm, no murmurs, no rub and no gallops Cardio Narrative: HR increases and RR increases 15-20 beats after walking 50 ft. GI normal to inspection, nondistended, normoactive bowel sounds, soft to palpation, non-tender and non-distended GI Narrative: She never complains to me about abd pain now or diarrhea now that she has been on the Effexor. Extremity no calf tenderness Extremity Narrative: There is edema of the LE's and when the legs are dependent there is venous hypertension and they look purple/red to her and I explained this is due to venous insufficiency when dependent and the way to control this is to provide compression. When she follows up with me in the wound care center I will get Circaids ordered for her to control the edema and prevent lymphedema from developing. Skin Skin Narrative: The fissure in the skin fold on the back is still open but is smaller. It is much easier to open the skin fold and apply the dressing since she has lost 17 pounds. there is still some slough and she is going to follow up with me in the wound care center next Thursday. Rashes: no rashes Wound Narrative: Neuro oriented x3, CN's II-XII intact bilaterally and moves all extremities Neuro Narrative: + Phalen's on the R. the R side is weaker than the left and she is R hand dominant. I suspect she may have had a stroke while on the ventilator for 2 weeks. No dysarthria and no facial drrop. Motor Exam: strength 5/5 throughout Psych mental status grossly normal, thought process normal, cooperative, affect normal and denies suicidal ideation Appearance: grossly normal, appropriate and well kempt Activity / Motor Behavior: appropriate eye contact Speech: normal speech Debridement Note Debridement Note No debridement was completed: No debridement was completed today Post-Debridement Measurements and Additional Note: Post-Debridement Measurements/Treatment ELVIS - Nurse 1 - General Ulcer Assessment Start: 10/02/21 08:23 Freq: Status: Active Protocol: ELVIS.LOWEXT Activity Type Activity Date Activity User E-Sign Co-Sign Detail Recorded Client Recorded Date Recorded By Document 10/02/21 08:23 [facility] [id number] 10/02/21 08:26 [facility] 10/02/21 08:23 - Today's Visit Information Type of service 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 ) Arrival Mode Ambulatory, Walker Transfer Assistance None Patient Identification Verified (Name & Yes ) Patient Requires Transmission-Based No Precautions Height and Weight Body Mass Index (BMI) 67.7 BMI Classification Obese Vital Signs Temperature (97.8 F-99.1 F) 95.5 F L Temperature Source Temporal Pulse Rate (60-100) 73 Pulse Location Monitor Respiratory Rate (12-18) 20 H Respiratory rate source Observation Oxygen Delivery Method Room Air Blood Pressure (90/60-120/80) 150/64 H Blood Pressure Mean (mm Hg) 92 Source Monitor Position Sitting Blood Pressure Location Right Forearm History Since Last Visit- (Skip if this is Patient's initial visit) Have you changed medications since your No last visit? Any new allergies or adverse reactions No Had a fall/change in ADL's that may No increase risk of falls Signs or symptoms of abuse and/or No neglect since last visit Have you been in the hospital since your No last visit? Has dressing in place as prescribed Yes Has compression in place as prescribed N/A Has offloadiing in place as prescribed N/A Experienced any changes in pain level or No management Left Footwear Regular Shoe Right Footwear Regular Shoe Pain Scale: 0-10 Numeric Is Patient Pain Free? Yes - Nurse 1 - General Ulcer Measurement Start: 10/02/21 08:23 Freq: Status: Active Protocol: Activity Type Activity Date Activity User E-Sign Co-Sign Detail Recorded Client Recorded Date Recorded By Document 10/02/21 08:23 [facility] [id number] 10/02/21 08:26 [facility] 10/02/21 08:23 Wound Center Nurse 1 #1- MID BACK -Combined with other wound No -Current Size (cm) - Length 0.1 -Current Size (cm) - Width 0.1 -Current Size (cm) - Depth 0.1 -Total Square Cm 0.01 -Epithelialization Large 67-100% - Nurse 2 - General Ulcer CM Notes Start: 10/02/21 08:23 Freq: Status: Active Protocol: Activity Type Activity Date Activity User E-Sign Co-Sign Detail Recorded Client Recorded Date Recorded By Document 10/02/21 08:35 [id number] 10/02/21 08:36 10/02/21 08:35 Wound Center Nurse 2 -Time 08:35 -Correct Patient Yes -Correct Side, Site, Position Yes -Correct Procedure Yes -Procedure Performed No -Post Debridement (cm) - Length 0 -Post Debridement (cm) - Width 0 -Post Debridement (cm) - Depth 0 -Total Square (Post) (cm) 0 -Wound/Ulcer Outcome Healed- Epithelialized Pain Scale: 0-10 Numeric Is Patient Pain Free? Yes - Nurse 3 - General Ulcer D/C NN Start: 10/02/21 08:23 Freq: Status: Active Protocol: Activity Type Activity Date Activity User E-Sign Co-Sign Detail Recorded Client Recorded Date Recorded By Document 10/02/21 08:36 [id number] 10/02/21 08:37 10/02/21 08:36 Wound Care Nurse 3 #1- MID BACK -Primary Dressing Covered/Secured with Dry Gauze, Secured with Tape Treatment Response Procedure Tolerated Well Pain Scale: 0-10 Numeric Is Patient Pain Free? Yes Teaching: Wound Center Discharge Instructions -Person Taught Patient -Teaching Method Discussion -Response to teaching Verbalize understanding WC - Visit Discharge Discharge Condition Stable Ambulatory Status Ambulatory, Walker Transportation Private Auto Accompanied by self Medication Reconcilliation completed & No provided to patient/care provider Clinical Summary of Care Provided Yes Assessment/Plan Assessment/Plan (1) Non-healing wound: PLAN: Discharge from the wound center follow-up as needed May massage and vitamin E into the scar area and massage therapy to the keloiding scar tissue to break it down. (2) Super obesity: CODE(S): E66.9 - Obesity, unspecified
== END 2021-10-02 11:51 | disposition home or self-care (01) ==
LOC: WC 08:22
PROVIDERS: PCP Physician Assistant; Visit Provider Nurse Practitioner
DX: I87.2 Venous insufficiency (chronic) (peripheral) (principal); L98.421 Non-pressure chronic ulcer of back limited to breakdown of skin; L91.0 Hypertrophic scar; G47.33 Obstructive sleep apnea (adult) (pediatric); E66.01 Morbid (severe) obesity due to excess calories; Z86.16 Personal history of COVID-19; Z68.44 Body mass index [BMI] 60.0-69.9, adult
CPT/HCPCS: 99213; G0463

== ENCOUNTER 2021-12-06 12:34 | Outpatient (CLI) | payer BC, SELFPAY ==
[2021-12-06 13:51] VITALS: PULSE 111; PULSE 114; PULSE 116; PULSE 124; PULSE 135; PULSE 136; PULSE 86; PULSE 90; O2SAT 90; O2SAT 91; O2SAT 92; O2SAT 93; O2SAT 94; O2SAT 95; O2SAT 97
--- NOTE | 2021-12-06 14:58 | PCM.PSN.6M ---
PSN 6 Minute Walk Test 6 Minute Walk Test 6 Minute Walk Test: 6 Minute Walk Test PSN:6-Minute Walk Test Start: 12/06/21 13:51 Freq: Status: Active Protocol: RESP.6MINW Document 12/06/21 13:51 LIZ (Rec: 12/06/21 13:54 [id number]) 6 Minute Walk Test Date Performed 12/06/21 Time Performed 12:45 Height 5 ft 5 in Weight: 190.509 kg Weight in Pounds 420.[address]: Suman Johnson Assistive device used: Walker Pre-test Oxygen Delivery Method Room Air Pulse Ox (%) 95 Pulse Rate (60-100 beats/min) 86 Dyspnea Shelby Scale (0-10) 0 Exertion Shelby Scale (6-20) 6 1st minute Oxygen Delivery Method Room Air Pulse Ox (%) 94 Pulse Rate (60-100 beats/min) 114 H 2nd minute Oxygen Delivery Method Room Air Pulse Ox (%) 93 Pulse Rate (60-100 beats/min) 111 H 3rd minute Oxygen Delivery Method Room Air Pulse Ox (%) 92 Pulse Rate (60-100 beats/min) 116 H 4th minute Oxygen Delivery Method Room Air Pulse Ox (%) 91 Pulse Rate (60-100 beats/min) 124 H 5th minute Oxygen Delivery Method Room Air Pulse Ox (%) 90 Pulse Rate (60-100 beats/min) 135 H 6th minute Oxygen Delivery Method Room Air Pulse Ox (%) 90 Pulse Rate (60-100 beats/min) 136 H Dyspnea Shelby Scale (0-10) 5 Exertion Shelby Scale (6-20) 13 Post-test Oxygen Delivery Method Room Air Pulse Ox (%) 97 Pulse Rate (60-100 beats/min) 90 Full Laps Walked 11 Partial Lap, Number of Tiles Walked 46 Total Distance Walked (ft) 695 Interpretation Interpretation: Patient was noted to be 95% on room air, but desaturated to 90% after 6 minutes of ambulation. Patient did have significant tachycardia with a peak heart rate of 136 bpm. In total, the patient traveled only 695 feet over the course of 6 minutes with the assistance of a walker and no breaks. These findings are consistent with a multifactorial etiology for shortness of breath on exertion Recommendations Recommendations: Patient does not qualify for supplemental oxygen at this time, but needs to be followed closely given level of desaturation. Patient would benefit from cardiac optimization.
== END 2021-12-06 23:59 | disposition short-term general hospital (02) ==
LOC: PSN 12:37
PROVIDERS: PCP Physician Assistant; Referring Provider Nurse Practitioner Acute Care; Visit Provider Nurse Practitioner Acute Care
DX: R06.00 Dyspnea, unspecified (principal)
CPT/HCPCS: 94618

== ENCOUNTER → 2022-04-04 | Outpatient (CLI) | payer BC, SELFPAY | END | disposition home or self-care (01) | LOC: CVS 06:54 | PROVIDERS: PCP Physician Assistant; Visit Provider Physician Assistant | DX: R06.02 Shortness of breath (principal) | CPT/HCPCS: A4216 ==

== ENCOUNTER 2023-07-08 08:16 | Emergency (ER) | payer BC, SELFPAY ==
[2023-07-08 08:16] VITALS: BP 140/90; PULSE 103; RESP 18; TEMP 37.1; O2SAT 99
[2023-07-08 08:20] VITALS: BMI 82.7
--- NOTE | 2023-07-08 08:41 | EDS_ITS ---
HPI History of Present Illness Chief Complaint: Cellulitis Informant: patient and spouse/S.O. Narrative Narrative: History of chronic lymphedema bilateral lower extremity presents recurrent cellulitis right lower extremity. Fevers and chills. Symptoms started again yesterday. On and off symptoms since November of this year. Last episode was last month put on a 10-day course of antibiotics finished approximately a week ago. Her redness resolved. She has been managed by her PCP and then physicians on demand through her insurance carrier. Over the weekend has had pain lower leg, there is no redness, was told to go to the ED to rule out blood clots. She monitor symptoms redness returned yesterday. She denies diabetes history. No recent travel most recent surgeries, no history of PE or DVT. She does ambulate with a walker. Reports redness has been similar amount in the past. She had a 10-day course of Keflex. Prior similar symptoms: Yes PFSH [facility] Medical History Abnormal echocardiogram Anxiety Ascending aorta dilatation Asthma Depression GERD without esophagitis Heel spur IBS (irritable bowel syndrome) Insomnia Osteoarthritis (arthritis due to wear and tear of joints) Home Medications acetaminophen 500 mg capsule 1,000 mg PO Q6H PRN Pain 07/11/21 [History Last Taken Unknown] aspirin 81 mg tablet,delayed release (Adult Low Dose Aspirin) 81 mg PO DAILY 07/11/21 [History Last Taken Unknown] albuterol sulfate 90 mcg/actuation aerosol inhaler (Ventolin HFA) 2 puff inhalation Q6H PRN PRN SOB &/OR WHEEZING #1 g 08/01/21 [Rx Last Taken Unknown] ascorbic acid (vitamin C) 500 mg tablet 500 mg PO 1200 #0 tabs 08/01/21 [Rx Last Taken Unknown] ferrous sulfate 325 mg (65 mg iron) tablet (FeroSul) 325 mg PO DAILY@1200 #30 tabs 08/01/21 [Rx Last Taken Unknown] fluticasone propionate 50 mcg/actuation nasal spray,suspension (Allergy Relief ( fluticasone)) 2 spray intranasal BID #1 BOTTLE 08/01/21 [Rx Last Taken Unknown] magnesium oxide 400 mg PO DAILY #30 caps 08/01/21 [Rx Last Taken Unknown] pantoprazole 40 mg tablet,delayed release 40 mg PO DAILY@0600 #30 tabs 08/01/21 [Rx Last Taken Unknown] trazodone 100 mg tablet 100 mg PO QHS #30 tabs 08/01/21 [Rx Last Taken Unknown] venlafaxine 150 mg capsule,extended release 24 hr 150 mg PO 0800 #30 caps 08/01/21 [Rx Last Taken Unknown] nystatin 100,000 unit/gram topical powder (Nyamyc) 1 applic topical BID@0600,2200 PRN YEAST 08/06/21 [History Last Taken Unknown] venlafaxine 75 mg capsule,extended release 24 hr (Effexor XR) 225 mg (3 x 75 mg) PO DAILY #90 caps 09/03/21 [Rx Last Taken Unknown] cephalexin 500 mg capsule 500 mg PO Q6 #40 CAPSULES 07/08/23 [Rx Last Taken Unknown] ondansetron 4 mg disintegrating tablet 4 mg PO Q8H PRN PRN Nausea #10 tabs 07/08/23 [Rx Last Taken Unknown] Allergy/AdvReac Type Severity Reaction Status Date / Time adhesive tape AdvReac Unknown Other Verified 07/08/23 08:20 Family History Mother Alzheimer's dementia Surgical History H/O foot surgery History of cholecystectomy History of hip surgery Social History household members: spouse housing: house number of children: 1 current occupational status: employed 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 For lunch she has a bowl of soup and crackers which she takes to work. Sometimes has pretzels for a snack. Eats lunch at 12:30- 1 and does not get home until 7 PM and then she is starved. Her sometimes cooks and it is usually not healthy and may include pizza, hot dogs, fast food. Does not plan meals and her hisband is not supportive of healthy eating. He is a little overweight and likes to eat junk. ROS ROS ED Constitutional Constitutional ED: Denies chills, fever(s) or sweats Eyes Eyes: Denies change in vision ENT ENT ED: Denies dysphagia or sore throat Cardiovascular Cardiovascular: Denies chest pain, leg edema, palpitations or racing heartbeat Respiratory/Chest Respiratory/Chest: Denies cough, dyspnea or dyspnea on exertion Gastrointestinal Gastrointestinal: Denies abdominal pain, diarrhea, nausea or vomiting Genitourinary Genitourinary ED: Denies dysuria, hematuria or urinary frequency Musculoskeletal Musculoskeletal: Reports extremity pain; Denies back pain or neck pain Integumentary Reports rash; Denies wounds Neurologic Neurologic: Denies headache(s), paresthesias or weakness EXAM Physical Exam Const Vital Signs: 07/08/23 08:16 07/08/23 08:16 07/08/23 10:16 Temperature 98.7 F 97.8 F Temperature Source Temporal Temporal Pulse Rate 103 H 78 Respiratory Rate 18 16 Respiratory Effort Normal Respiratory Pattern Normal Blood Pressure 140/90 H 133/46 H Blood Pressure Mean 106 75 Pulse Ox 99 97 Oxygen Delivery Method Room Air Room Air Positive well nourished and well developed General Appearance ED: well developed and NAD HEENT Reports moist mucous membranes normocephalic and atraumatic Eyes PERRL, EOMs intact bilaterally and conjunctivae normal General Eye ED: Yes normal appearance of both eyes Neck no lymphadenopathy and supple General: Negative for tenderness Chest Wall Chest: Negative for tenderness Resp normal respiratory effort and normal air movement Effort and Inspection: symmetric chest movement; Negative for respiratory distress Cardio regular rate, regular rhythm and no murmurs Peripheral Pulses: pulses 2+ throughout GI normal to inspection, nondistended, normoactive bowel sounds and non-tender Palpation: Negative for guarding or rebound tenderness present Back/Spine no CVA tenderness and no thoracic nor lumbar tenderness Extremity Extremity Narrative: Lymphedema bilateral lower extremities there is pulses distally. Right lower extremity erythema medial aspect of the thigh extending posteriorly. There is no groin involvement. No crepitus. Skin is intact. The area was outlined. General Extremety ED: Yes tenderness Neuro oriented x3 and no sensory deficits noted Sensorium / Orientation: awake and alert Skin no rashes or lesions noted and no wounds MDM MDM MDM Narrative Medical decision making narrative: Interventions / MDM: Differential diagnosis: Cellulitis Diagnosis considered but do not suspect: DVT however ultrasound negative, no crepitus or purpura for concerns for necrotizing fasciitis. My EKG interpretation: N/A Imaging independently reviewed and interpreted by myself: DVT study right lower extremity: Negative External documents reviewed: N/A Test considered but not ordered:N/A ED course: Patient afebrile in the ED initial pulse 103. Cellulitis right lower extremity. Sepsis labs ordered. Ultrasound ordered right lower extremity. Cefazolin IV antibiotic initiated. DVT study negative. Labs white count 14.9 lactic 1.6. Creatinine 0.96. There was slight nausea and headache improved with Zofran and Tylenol. Patient reported similar erythema in the past improved antibiotics. She is not a diabetic. Discussed reasonable for outpatient management with strict return precautions for which she understands agrees. Patient spouse and family is present. Heart rate now is in the 80s on my reevaluation. Prescription for Keflex to her pharmacy along with Zofran. All questions were answered. Re-evaluation: stable Disposition discussed with patient/family/significant other: Patient and family Case discussed with consulting clinician: N/A This note was generated with [employer] dictation software. It may contain incorrect words, spelling, and punctuation that were not noted in checking the note before signing. Lab Data Attestation: I reviewed the patient's lab results. Labs: Laboratory Results - last 24 hr 07/08/23 09:01 WBC 14.9 H RBC 4.58 Hgb 12.6 Hct 40.0 MCV 87.3 MCH 27.5 MCHC 31.5 L RDW Std Deviation 49.1 H RDW Coeff of Rani 15.4 H Plt Count 169 MPV 9.9 Immature Gran % (Auto) 0.600 Neut % (Auto) 92.5 H Lymph % (Auto) 2.4 L Morrison % (Auto) 4.4 Eos % (Auto) 0.0 Baso % (Auto) 0.1 Absolute Neuts (auto) 13.7 H Absolute Lymphs (auto) 0.36 L Nucleated RBC % 0 Differential Comment SCANNED PT 13.8 INR 1.1 APTT 35.2 Sodium 134 L Potassium 4.4 Chloride 100 Carbon Dioxide 28.0 Anion Gap 6 BUN 18 Creatinine 0.96 Estim Creat Clear Calc 57.18 Est GFR (MDRD) Af Amer 77 Est GFR (MDRD) Non-Af 64 BUN/Creatinine Ratio 18.7 Glucose 111 H Lactic Acid 1.6 Calcium 9.0 Total Bilirubin 0.70 AST 16 ALT 22 Alkaline Phosphatase 79 Total Protein 7.3 Albumin 3.3 Globulin 4.0 Albumin/Globulin Ratio 0.8 L Radiography Diagnostic Testing: Clinical Impression(s) from Imaging Studies Venous Doppler Study 07/08/23 08:41 Interpretation Summary Deep veins of the right lower extremity are patent and compressible segmentally. There is no evidence of right lower extremity deep vein thrombosis. The right great saphenous vein appears patent and compressible segmentally. Limited study due to body habitus Ordering Physician: Kolyb Guan Referring Physician: Helena Crews Performed By: Madelin Cavanaugh RVT Discharge Plan Triage Chief Complaint: Cellulitis ED Provider: Kolby Guan Dx/Rx/DC Orders Clinical Impression: Cellulitis, Lymphedema, Nausea Instructions: ED Cellulitis, ED Lymphedema Prescriptions: New cephalexin [cephalexin] 500 mg capsule 500 mg PO Q6 Qty: 40 0RF ondansetron [ondansetron] 4 mg tablet,disintegrating 4 mg PO Q8H PRN PRN (Reason: Nausea) Qty: 10 0RF No Action acetaminophen 500 mg capsule 1,000 mg PO Q6H PRN (Reason: Pain) aspirin [Adult Low Dose Aspirin] 81 mg tablet,delayed release (DR/EC) 81 mg PO DAILY ascorbic acid (vitamin C) 500 mg Tablet 500 mg PO 1200 Qty: 0 0RF Rx Instructions: take this medication with the ferrous sulfate with food albuterol sulfate [Ventolin HFA] 90 mcg/actuation Hfa Aerosol Inhaler 2 puff inhalation Q6H PRN PRN (Reason: SOB &/OR WHEEZING) Qty: 1 0RF ferrous sulfate [FeroSul] 325 mg (65 mg iron) Tablet 325 mg PO DAILY@1200 Qty: 30 0RF venlafaxine 150 mg Capsule,Extended Release 24hr 150 mg PO 0800 Qty: 30 2RF trazodone 100 mg Tablet 100 mg PO QHS Qty: 30 2RF pantoprazole 40 mg Tablet,Delayed Release (Dr/Ec) 40 mg PO DAILY@0600 Qty: 30 0RF magnesium oxide 400 mg magnesium capsule 400 mg PO DAILY Qty: 30 0RF fluticasone propionate [Allergy Relief (fluticasone)] 50 mcg/actuation spray,suspension 2 spray intranasal BID Qty: 1 0RF Rx Instructions: administer into each nostril nystatin [Nyamyc] 100,000 unit/gram powder 1 applic topical BID@0600,2200 PRN (Reason: YEAST) Protocol: *Topical Application Instructions APPLICATION INSTRUCTIONS: apply to abdominal folds and under breasts and arms venlafaxine [Effexor XR] 75 mg capsule,extended release 24hr 225 mg PO DAILY Qty: 90 0RF Rx Instructions: take 3 capsules every AM Stand Alone Forms: ED Work / School Excuse Primary Care Provider: Helena Crews Referrals: Helena Crews PA [Primary Care Provider] - 3-5 Days Activity Restrictions/Additional Instructions: Ultrasound negative for DVT. Recurrent cellulitis right lower extremity. White count 14.9. Lactic acid normal at 1.6. Your erythema has been outlined. Take antibiotic as prescribed. Follow-up with your doctor closely. Return if worsening symptoms. Disposition Disposition: Home, Self Care Discharge Date/Time: 07/08/23 10:40
--- NOTE | 2023-07-08 08:41 | VDLE_ITS ---
Reason For Study: Right leg pain RIGHT GSV is normal. CFV is compressible, spontaneous, phasic, competent and demonstrates normal augmentation. FV prox-mid visualized with color only appear patent, normal venous flow with augmentation. Unable to visualize FV distal. POP V is compressible, spontaneous, phasic, competent and demonstrates normal augmentation. Peroneal veins not well visualized. PTV is compressible. Procedure This is a venous duplex using B-mode, color flow and spectral Doppler. Exam performed portable in ED. Technically difficult due to patient body habitus. A preliminary report was called and/or faxed to Dr. Guan. VL/Venous Duplex US, Unilateral Interpretation Summary Deep veins of the right lower extremity are patent and compressible segmentally . There is no evidence of right lower extremity deep vein thrombosis. The right great sapheno us vein appears patent and compressible segmentally. Limited study due to body habitus Ordering Physician: Kolby Guan Referring Physician: Helena Crews Performed By: Madelin Cavanaugh RVT
[2023-07-08 09:17] LABS: Absolute Lymphocyte Count 0.36 X10^3/uL (0.83-4.51); Absolute Neutrophil Count 13.7 X10^3/uL (2.0-7.7); Basophil# 0.01 X10^3/uL; Basophil% 0.1 % (0-1); Hemoglobin 12.6 g/dL (12.0-15.0); Lymphocyte # 0.36 X10^3/ul (0.83-4.51); Lymphocyte % 2.4 % (19-41); Mean Corp Hgb Conc 31.5 g/dL (32-36); Mean Corpuscular Hgb 27.5 pg (27.0-32.0); Mean Corpuscular Volume 87.3 fL (81-99); Mean Platelet Vol. 9.9 fl (6.2-12.0); Monocyte# 0.65 X10^3/uL; Monocyte% 4.4 % (0-10); NRBC Flagged by Analyzer 0 % (0-5); Neutrophil # 13.74 X10^3/uL (2.7-7.7); Neutrophil % 92.5 % (47-70); POSITIVE DIFFERENTIAL YES; Platelet Count 169 K/mm3 (150-450); RBC Distribution Width CV 15.4 % (11.6-14.6); RBC Distribution Width SD 49.1 fl (35.1-43.9); Red Blood Count 4.58 M/mm3 (4.2-5.4); White Blood Count 14.9 K/mm3 (4.4-11.0)
[2023-07-08 09:18] LABS: Differential Indicated SCAN CRITERIA MET
[2023-07-08 09:25] LABS: International Normalized Ratio 1.1; Prothrombin Time (Protime)PT. 13.8 SECONDS (11.7-14.9)
[2023-07-08 09:26] LABS: Partial Thromboplast Time 35.2 Seconds (24.1-36.2)
[2023-07-08] MEDS: Ondansetron 4 MG/2 ML Vial IV (09:37)
[2023-07-08] MEDS: Acetaminophen 500 MG Tablet 1000 MG PO (09:37)
[2023-07-08] MEDS: Cefazolin 2 GM in 0.9% Normal Saline 100 ML IV (09:37)
[2023-07-08 09:45] LABS: ALB/GLOB Ratio 0.8 RATIO (0.9-2.4); AST(SGOT) 16 U/L (15-37); Alanine Aminotransfer ALT/SGPT 22 U/L (13-56); Albumin, Serum 3.3 g/dL (3.2-5.0); Alkaline Phosphatase 79 U/L (45-117); Anion Gap 6 (5-15); BUN 18 mg/dL (7-18); BUN/Creat Ratio 18.7 RATIO (10-20); Chloride 100 mmol/L (98-107); Creatinine, Serum 0.96 mg/dL (0.55-1.02); EST Glomerular Filtration Rate 64 mL/min (>60); Est Glom Filt Rate - Afr Amer 77 mL/min (>60); Estimated Creatinine Clearance 57.18 ml/min; Glucose 111 mg/dL (74-106); Potassium 4.4 mmol/L (3.5-5.1); Protein, Total 7.3 g/dL (6.4-8.2); Sodium Level 134 mmol/L (136-145)
[2023-07-08 09:46] LABS: Lactic Acid 1.6 mmol/L (0.4-1.9)
[2023-07-08 09:47] LABS: Differential Comment SCANNED
[2023-07-08 10:16] VITALS: BP 133/46; PULSE 78; RESP 16; TEMP 36.6; O2SAT 97
== END 2023-07-08 10:40 | disposition home or self-care (01) ==
PROVIDERS: Emergency Provider Emergency Medicine; PCP Physician Assistant; Visit Provider Emergency Medicine
DX: L03.115 Cellulitis of right lower limb (principal); I89.0 Lymphedema, not elsewhere classified; R11.0 Nausea; Z87.891 Personal history of nicotine dependence
CPT/HCPCS: 80053; 83605; 85025; 85610; 85730; 87040; 93971; 99283; A4216; J2405

== ENCOUNTER 2023-07-24 22:49 | Inpatient (IN) | payer BC, SELFPAY ==
[2023-07-24 22:50] VITALS: BP 126/94; PULSE 81; RESP 18; TEMP 36.7; O2SAT 97; BMI 78.5
--- NOTE | 2023-07-24 23:12 | EX.ED.DYSGE1 ---
HPI History of Present Illness Chief Complaint: Wound Narrative Narrative: Patient presents with now bilateral lower extremity cellulitis. For the past month she has been battling right lower extremity cellulitis she is on her fourth dose of antibiotics, she had 2 rounds of Keflex and now she is on her second round of doxycycline. Tonight she noticed left-sided erythema calor which is rapidly progressing. She has no fevers or chills. She does not feel weak. She is not a diabetic [facility] Medical History Abnormal echocardiogram Anxiety Ascending aorta dilatation Asthma Depression GERD without esophagitis Heel spur IBS (irritable bowel syndrome) Insomnia Osteoarthritis (arthritis due to wear and tear of joints) Home Medications acetaminophen 500 mg capsule 1,000 mg PO Q6H PRN Pain 07/11/21 [History Last Taken Unknown] aspirin 81 mg tablet,delayed release (Adult Low Dose Aspirin) 81 mg PO DAILY 07/11/21 [History Last Taken Unknown] ascorbic acid (vitamin C) 500 mg tablet 500 mg PO 1200 #0 tabs 08/01/21 [Rx Last Taken Unknown] ferrous sulfate 325 mg (65 mg iron) tablet (FeroSul) 325 mg PO DAILY@1200 #30 tabs 08/01/21 [Rx Last Taken Unknown] magnesium oxide 400 mg PO DAILY #30 caps 08/01/21 [Rx Last Taken Unknown] venlafaxine 75 mg capsule,extended release 24 hr (Effexor XR) 225 mg (3 x 75 mg) PO DAILY #90 caps 09/03/21 [Rx Last Taken Unknown] Lactobacillus acidophilus (Acidophilus capsule) 10 mg PO DAILY 07/24/23 [History Last Taken Unknown] cholestyramine (with sugar) 4 gram oral powder ea 07/24/23 [History Last Taken Unknown] doxycycline hyclate 100 mg capsule 100 mg PO BID 07/24/23 [History Last Taken Unknown] lisinopril 10 mg tablet 10 mg PO DAILY 07/24/23 [History Last Taken Unknown] omeprazole 40 mg capsule,delayed release 40 mg PO DAILY 07/24/23 [History Last Taken Unknown] pediatric multivitamin .Route 07/24/23 [History Last Taken Unknown] Allergy/AdvReac Type Severity Reaction Status Date / Time adhesive tape AdvReac Unknown Other Verified 07/24/23 22:53 Family History Mother Alzheimer's dementia Surgical History H/O foot surgery History of cholecystectomy History of hip surgery Social History household members: spouse housing: house number of children: 1 current occupational status: employed 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 For lunch she has a bowl of soup and crackers which she takes to work. Sometimes has pretzels for a snack. Eats lunch at 12:30- 1 and does not get home until 7 PM and then she is starved. Her sometimes cooks and it is usually not healthy and may include pizza, hot dogs, fast food. Does not plan meals and her hisband is not supportive of healthy eating. He is a little overweight and likes to eat junk. ROS ROS ED ROS Narrative Past medical history: Reviewed Medications: Reviewed Social history: Noncontributory Review of systems: All systems negative except as indicated General: No fever Eyes: No visual changes ENT: No upper airway congestion, normal voice Cardiovascular: No chest pain Respiratory: No shortness of breath or cough Gastrointestinal: No abdominal pain, nausea vomiting or diarrhea Genitourinary: No dysuria Musculoskeletal: As in HPI Skin: As in HPI Neurological: No memory loss, confusion or any focal weakness EXAM Physical Exam Narrative Exam Narrative: Physical exam General: Patient appears comfortable. She appears recorded BMI. Head: Normocephalic, Atraumatic Eyes: Conjunctiva not pale ENT: Moist mucous membranes Neck: Supple, Nontender, No lymphadenopathy Cardiovascular: Regular rate, Regular rhythm Respiratory: No distress, CTA bilaterally Abdomen: Soft, Nontender, Nondistended Back: Nontender, Normal Inspection. Negative for: CVA tenderness Extremities: Bilateral lower extremity cellulitis, both sides are just above the knee the cellulitis has already been demarcated by her sister who is an RN. There is no crepitus or abscess formation or any signs of necrotizing fasciitis. Skin: As above Neurological: Alert, Normal Strength, Normal Sensation Const Vital Signs: 07/24/23 22:50 Temperature 98.0 F Temperature Source Temporal Pulse Rate 81 Respiratory Rate 18 Blood Pressure 126/94 H Blood Pressure Mean 104 Pulse Ox 97 Oxygen Delivery Method Room Air MDM MDM MDM Narrative Medical decision making narrative: Patient has slight leukocytosis otherwise I do not see any other evidence of sepsis. She is however failing outpatient antibiotics and she is on doxycycline and developed another cellulitis on the left side. Therefore I believe she meets criteria for admission due to failure of outpatient treatment. I gave her Vanco and Zosyn in the ED. Lab Data Labs: Laboratory Results - last 24 hr 07/24/23 23:22 WBC 11.1 H RBC 4.40 Hgb 12.2 Hct 38.0 MCV 86.4 MCH 27.7 MCHC 32.1 RDW Std Deviation 48.1 H RDW Coeff of Rani 15.2 H Plt Count 209 MPV 9.2 Immature Gran % (Auto) 0.600 Neut % (Auto) 84.5 H Lymph % (Auto) 8.1 L [place] % (Auto) 6.7 Eos % (Auto) 0.0 Baso % (Auto) 0.1 Absolute Neuts (auto) 9.4 H Absolute Lymphs (auto) 0.90 Nucleated RBC % 0 Sodium 138 Potassium 4.2 Chloride 107 Carbon Dioxide 28.0 Anion Gap 3 L BUN 20 H Creatinine 0.86 Estim Creat Clear Calc 66.51 Est GFR (MDRD) Af Amer 89 Est GFR (MDRD) Non-Af 73 BUN/Creatinine Ratio 23.4 H Glucose 118 H Calcium 8.9 Total Bilirubin 0.30 AST 12 L ALT 19 Alkaline Phosphatase 87 Total Protein 7.1 Albumin 3.2 Globulin 3.9 Albumin/Globulin Ratio 0.8 L Discharge Plan Triage Chief Complaint: Wound ED Provider: Arthur Lara Dx/Rx/DC Orders Clinical Impression: Cellulitis, Failure of outpatient treatment, Obesity Prescriptions: No Action acetaminophen 500 mg capsule 1,000 mg PO Q6H PRN (Reason: Pain) aspirin [Adult Low Dose Aspirin] 81 mg tablet,delayed release (DR/EC) 81 mg PO DAILY ascorbic acid (vitamin C) 500 mg Tablet 500 mg PO 1200 Qty: 0 0RF Rx Instructions: take this medication with the ferrous sulfate with food ferrous sulfate [FeroSul] 325 mg (65 mg iron) Tablet 325 mg PO DAILY@1200 Qty: 30 0RF magnesium oxide 400 mg magnesium capsule 400 mg PO DAILY Qty: 30 0RF venlafaxine [Effexor XR] 75 mg capsule,extended release 24hr 225 mg PO DAILY Qty: 90 0RF Rx Instructions: take 3 capsules every AM omeprazole 40 mg capsule,delayed release(DR/EC) 40 mg PO DAILY Patient Comments: TAKE 1 CAPSULE BY MOUTH ONCE DAILY lisinopril 10 mg tablet 10 mg PO DAILY Patient Comments: TAKE 1 TABLET BY MOUTH ONCE DAILY pediatric multivitamin [multivitamin] .Route doxycycline hyclate 100 mg capsule 100 mg PO BID Patient Comments: TAKE 1 CAPSULE BY MOUTH TWICE DAILY cholestyramine (with sugar) 4 gram powder Patient Comments: TAKE DIRECTED ON CONTAINER Acidophilus Capsule 10 mg PO DAILY Primary Care Provider: Helena Crews Referrals: Helena Crews PA [Primary Care Provider] - Disposition Disposition: Acute Care Hospital [facility]
[2023-07-24 23:32] LABS: Absolute Neutrophil Count 9.4 X10^3/uL (2.0-7.7); Basophil# 0.01 X10^3/uL; Basophil% 0.1 % (0-1); Hemoglobin 12.2 g/dL (12.0-15.0); Lymphocyte % 8.1 % (19-41); Mean Corp Hgb Conc 32.1 g/dL (32-36); Mean Corpuscular Hgb 27.7 pg (27.0-32.0); Mean Corpuscular Volume 86.4 fL (81-99); Mean Platelet Vol. 9.2 fl (6.2-12.0); Monocyte# 0.74 X10^3/uL; Monocyte% 6.7 % (0-10); NRBC Flagged by Analyzer 0 % (0-5); Neutrophil # 9.35 X10^3/uL (2.7-7.7); Neutrophil % 84.5 % (47-70); Platelet Count 209 K/mm3 (150-450); RBC Distribution Width CV 15.2 % (11.6-14.6); RBC Distribution Width SD 48.1 fl (35.1-43.9); White Blood Count 11.1 K/mm3 (4.4-11.0)
[2023-07-24 23:49] LABS: ALB/GLOB Ratio 0.8 RATIO (0.9-2.4); AST(SGOT) 12 U/L (15-37); Alanine Aminotransfer ALT/SGPT 19 U/L (13-56); Albumin, Serum 3.2 g/dL (3.2-5.0); Alkaline Phosphatase 87 U/L (45-117); Anion Gap 3 (5-15); BUN 20 mg/dL (7-18); BUN/Creat Ratio 23.4 RATIO (10-20); Calcium,Total 8.9 mg/dL (8.5-10.1); Chloride 107 mmol/L (98-107); Creatinine, Serum 0.86 mg/dL (0.55-1.02); EST Glomerular Filtration Rate 73 mL/min (>60); Est Glom Filt Rate - Afr Amer 89 mL/min (>60); Estimated Creatinine Clearance 66.51 ml/min; Globulin 3.9 g/dL (2.2-4.2); Glucose 118 mg/dL (74-106); Potassium 4.2 mmol/L (3.5-5.1); Protein, Total 7.1 g/dL (6.4-8.2); Sodium Level 138 mmol/L (136-145)
[2023-07-25] VITALS (10 sets, daily range): BP systolic 94–156; BP diastolic 48–80; PULSE 69–89; RESP 16–18; TEMP 36.6–38.2; O2SAT 90–98; BMI 82.1
[2023-07-25 00:24] LABS: Lactic Acid 1.6 mmol/L (0.4-1.9)
[2023-07-25] MEDS: Acetaminophen 500 MG Tablet 1000 MG PO ×4 (00:35→22:25)
--- NOTE | 2023-07-25 00:44 | HP.PCM.HOS_ITS ---
[facility] - General General Date of Admission: 07/25/23 Date of Service: 07/25/23 Chief Complaint: LLE Redness HPI Narrative PHILLIP GARCIA, is a 53 F who presented to the emergency department at [facility] late in the evening on 07/24/2023 with new onset left lower extremity erythema. Patient has been battling right lower extremity cellulitis for about a month now. She was placed on Keflex x2 and doxycycline x2 courses but the erythema has persisted. She states the right side initially got better but her left side started this morning. Her right side looks worse now than it did yesterday as well. The erythema on the left lower extremity has been rapidly progressing. She does have a previous history of MRSA pneumonia and Staph hominis bacteremia. She does not have diabetes at baseline. She states she has had chills and a headache but no documented fever. Her legs are painful. Vital signs on presentation show a temperature of 98 degrees, heart rate 81, blood pressure 126/94, respiratory rate 18 oxygen saturations are 97% on room air. CBC shows a mild leukocytosis with a white count of 11.1. There is a left shift with an 84.5% neutrophilia. Her chemistry panel was overall unremarkable other than mild glucose elevation with a blood sugar of 118. Liver functions normal. In the emergency department she was given vancomycin and Zosyn given outpatient failure of to oral antibiotics and request for admission was made. [facility] Medical History Abnormal echocardiogram Anxiety Ascending aorta dilatation Asthma Depression GERD without esophagitis Heel spur IBS (irritable bowel syndrome) Insomnia Osteoarthritis (arthritis due to wear and tear of joints) Home Medications acetaminophen 500 mg capsule 1,000 mg PO Q6H PRN Pain 07/11/21 [History Last Jonel en Unknown] aspirin 81 mg tablet,delayed release (Adult Low Dose Aspirin) 81 mg PO DAILY 07/11/21 [History Last Taken Unknown] ascorbic acid (vitamin C) 500 mg tablet 500 mg PO 1200 #0 tabs 08/01/21 [Rx Last Taken Unknown] ferrous sulfate 325 mg (65 mg iron) tablet (FeroSul) 325 mg PO DAILY@1200 #30 tabs 08/01/21 [Rx Last Taken Unknown] magnesium oxide 400 mg PO DAILY #30 caps 08/01/21 [Rx Last Taken Unknown] venlafaxine 75 mg capsule,extended release 24 hr (Effexor XR) 225 mg (3 x 75 mg) PO DAILY #90 caps 09/03/21 [Rx Last Taken Unknown] Lactobacillus acidophilus (Acidophilus capsule) 10 mg PO DAILY 07/24/23 [History Last Taken Unknown] cholestyramine (with sugar) 4 gram oral powder ea 07/24/23 [History Last Taken Unknown] doxycycline hyclate 100 mg capsule 100 mg PO BID 07/24/23 [History Last Taken Unknown] lisinopril 10 mg tablet 10 mg PO DAILY 07/24/23 [History Last Taken Unknown] omeprazole 40 mg capsule,delayed release 40 mg PO DAILY 07/24/23 [History Last Taken Unknown] pediatric multivitamin .Route 07/24/23 [History Last Taken Unknown] Allergy/AdvReac Type Severity Reaction Status Date / Time adhesive tape AdvReac Unknown Other Verified 07/24/23 22:53 Family History Mother Alzheimer's dementia Surgical History H/O foot surgery History of cholecystectomy History of hip surgery Social History household members: spouse housing: house number of children: 1 current occupational status: employed 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 For lunch she has a bowl of soup and crackers wh ich she takes to work. Sometimes has pretzels for a snack. Eats lunch at 12:30- 1 and does not get home until 7 PM and then she is starved. Her sometimes cooks and it is usually not healthy and may include pizza, hot dogs, fast food. Does not plan meals and her hisband is not supportive of healthy eating. He is a little overweight and likes to eat junk. ROS Constitutional Constitutional: Reports chills; Denies anorexia, change in weight, fatigue, fever(s), malaise, night sweats, weakness or other Eyes Eyes: Denies blurry vision, change in eye color, change in vision, discharge from eye(s), double vision, erythema, eye pain, loss of vision or other ENT HEENT: Reports headache(s); Denies abnormal hearing, dysphagia, ear pain, epistaxis, hearing loss, nasal congestion, nasal discharge, post nasal drip, sinus pressure, sore throat or other Cardiovascular Cardiovascular: Denies chest pain, claudication, dyspnea on exertion, edema, lightheadedness, orthopnea, palpitations, paroxysmal nocturnal dyspnea, rapid heart rate, syncope or other Respiratory/Chest Respiratory/Chest: Denies cough, dyspnea, excessive phlegm production, hemoptysis, productive cough, shortness of breath at rest, shortness of breath with exertion, wheezing or other Gastrointestinal Gastrointestinal: Denies abdominal pain, coffee ground emesis, constipation, diarrhea, dyspepsia, hematemesis, hematochezia, loose stools, melena, nausea, vomiting or other Genitourinary Genitourinary: Denies burning urination, difficulty urinating, dysuria, hematuria, nocturia, urinary frequency, urinary hesitancy, urinary incontinence, urinary urgency or other Musculoskeletal Musculoskeletal: Reports other Details: Bilateral lower extremity leg pain Neurologic Neurologic: Reports headache(s); Denies abnormal gait, abnormal speech, confusion, disequilibrium, dizziness, focal weakness, numbness, paresthesias, seizure-like activity, seizures, syncope, tingling, tremor(s) or other Psychiatric Psychiatric: Reports depression; Denies anxiety, homicidal ideation, suicidal ideation or other Endocrine Endocrinology: Denies change in body appearance, cold intolerance, excessive sweating, heat intolerance, polydipsia, polyuria or other Hematologic/Lymphatic Hematologic/Lymphatic: Reports other Details: Chronic bilateral lower extremity lymphedema Allergic/Immunologic Allergic/Immunologic: Denies rhinitis, hives, eczemia, asthma or other Vital Signs Vital Signs Vital Signs: 07/24/23 22:50 07/25/23 00:37 07/25/23 00:38 Temperature 98.0 F 98.3 F Temperature Source Temporal Oral Pulse Rate 81 81 69 Respiratory Rate 18 16 16 Blood Pressure 126/94 H 136/80 H 136/80 H Blood Pressure Mean 104 98 98 Pulse Ox 97 97 96 Oxygen Delivery Method Room Air Room Air Room Air Weight Weight: 214.096 kg Body Mass Index (BMI) 78.5 Physical Exam Const alert, oriented x3, no apparent distress and well nourished; Negative for average body habitus or healthy appearing Constitutional Narrative: Super morbidly obese, pleasant, middle-aged white female, sitting up in bed, appears comfortable and nontoxic, family at bedside General Appearance: cooperative HEENT normocephalic, head/scalp atraumatic, hearing grossly normal bilaterally and moist oral mucous membranes HEENT Narrative: Mallampati 3, no thrush Resp normal respiratory effort, no retractions, no use of accessory muscles and clear to auscultation bilaterally Auscultation: Negative for rales, rhonchi or wheezes Cardio regular rate, regular rhythm, S1 normal heart sound, S2 normal heart sound, no murmurs, no rub, no gallops and no clicks GI normal to inspection, nondistended, normoactive bowel sounds, soft to palpation and non-tender Extremity Extremity Narrative: Bilateral lower extremity lymphedema noted, no cyanosis or clubbing Skin Skin Narrative: Bilateral lower extremity erythema worse on the left than the right, skin is w arm to touch in the area that is erythematous, tender, area extends up into the medial thigh area bilaterally, patient does have some peeling skin on the right side but no open wounds noted Neuro oriented x3, CN's II-XII intact bilaterally, moves all extremities and no focal motor deficits Speech: speech normal Psych affect normal Psych Narrative: Pleasant, interacts appropriately Results Lab / Micro Data 07/24/23 23:22 07/24/23 23:22 Labs: Laboratory Results - last 24 hr 07/24/23 23:22: WBC 11.1 H, RBC 4.40, Hgb 12.2, Hct 38.0, MCV 86.4, MCH 27.7, MCHC 32.1, RDW Std Deviation 48.1 H, RDW Coeff of Rani 15.2 H, Plt Count 209, MPV 9.2, Immature Gran % (Auto) 0.600, Neut % (Auto) 84.5 H, Lymph % (Auto) 8.1 L, [place] % (Auto) 6.7, Eos % (Auto) 0.0, Baso % (Auto) 0.1, Absolute Neuts (auto) 9.4 H, Absolute Lymphs (auto) 0.90, Nucleated RBC % 0, Sodium 138, Potassium 4.2, Chloride 107, Carbon Dioxide 28.0, Anion Gap 3 L, BUN 20 H, Creatinine 0.86, Estim Creat Clear Calc 66.51, Est GFR (MDRD) Af Amer 89, Est GFR (MDRD) Non-Af 73, BUN/Creatinine Ratio 23.4 H, Glucose 118 H, Lactic Acid 1.6, Calcium 8.9, Total Bilirubin 0.30, AST 12 L, ALT 19, Alkaline Phosphatase 87, Total Protein 7.1, Albumin 3.2, Globulin 3.9, Albumin/Globulin Ratio 0.8 L Assessment & Plan Assessment/Plan (1) Failure of outpatient treatment: (2) Cellulitis: (3) Hyperglycemia: PLAN: Plan Bilateral lower extremity cellulitis -Started on the right and has to the left -Mild systemic symptoms -Has had 2 rounds of outpatient Keflex and 2 rounds of outpatient doxycycline -Agree with Robert for now -No wounds to culture -Elevate lower extremities -We will consult wound nurse to help with wrapping lower extremities -Had echocardiogram done on 06/19/2021 at [facility] that showed normal EF and no significant valvular disease however they were unable to estimate right ventricular systolic pressure -ESR and CRP are pending -Blood cultures are pending--> only able to get 1 set -Does have history of MRSA infection and Staph hominis bacteremia Hyperglycemia -Mild -Check hemoglobin A1c with infection -No history of diabetes MIGUEL/obesity hypoventilation syndrome -Continue home BiPAP -Follows with Dr. Johnson History of iron deficiency anemia -Hemoglobin stable -Continue home iron supplementation Hypertension -Continue home lisinopril GERD -PPI Depression -Continue home Effexor Osteoarthritis -Scheduled Tylenol Super morbid obesity -BMI 78.5 -Recommend weight loss -Complicates treatment, prognosis, outcomes DVT prophylaxis -Lovenox subcu 40 twice daily CODE STATUS -Full code as per discussion on admission Charges/Coding Visit Charges Inpatient E&M: 01465 Init Hosp L2
[2023-07-25 01:23] LABS: Erythrocyte Sedimentation Rate 35 mm/hr (0-30)
[2023-07-25 02:56] LABS: Hemoglobin A1c 5.9 % (3.8-5.6)
--- NOTE | 2023-07-25 06:04 | PCM.RX.CS ---
Consult Antibiotic Management Pharmacy has been consulted to manage selected antiobiotic: Vancomycin Type of Intervention Type of Consult: New start Labs Labs: Sodium 138 mmol/L (136-145) 07/24/23 23:22 Potassium 4.2 mmol/L (3.5-5.1) 07/24/23 23:22 Chloride 107 mmol/L (98-107) 07/24/23 23:22 Carbon Dioxide 28.0 mmol/L (21.0-32.0) 07/24/23 23:22 Anion Gap 3 (5-15) L 07/24/23 23:22 BUN 20 mg/dL (7-18) H 07/24/23 23:22 Creatinine 0.86 mg/dL (0.55-1.02) 07/24/23 23:22 Est GFR (MDRD) Af Amer 89 mL/min (>60) 07/24/23 23:22 Est GFR (MDRD) Non-Af 73 mL/min (>60) 07/24/23 23:22 BUN/Creatinine Ratio 23.4 RATIO (10-20) H 07/24/23 23:22 Glucose 118 mg/dL (74-106) H 07/24/23 23:22 Goal Trough Goal Trough: 15-20 mcg/mL Pharmacy Plan for Drug Dosing Pharmacy Plan for Drug Dosing: Pharmacy Service will continue to monitor and adjust dosing as required. Follow-Up Labs Follow-Up Labs: Trough: Vancomycin Date/Time Labs Ordered Labs to be done on [date and time ordered]: 07/25 @ 2044
[2023-07-25 06:09] LABS: Basophil# 0.01 X10^3/uL; Basophil% 0.1 % (0-1); Hemoglobin 11.7 g/dL (12.0-15.0); Lymphocyte % 4.5 % (19-41); Mean Corp Hgb Conc 31.6 g/dL (32-36); Mean Corpuscular Hgb 27.5 pg (27.0-32.0); Mean Corpuscular Volume 87.1 fL (81-99); Mean Platelet Vol. 9.8 fl (6.2-12.0); Monocyte# 0.62 X10^3/uL; Monocyte% 5.5 % (0-10); NRBC Flagged by Analyzer 0 % (0-5); Neutrophil % 89.3 % (47-70); POSITIVE DIFFERENTIAL YES; Platelet Count 203 K/mm3 (150-450); RBC Distribution Width CV 15.4 % (11.6-14.6); RBC Distribution Width SD 49.1 fl (35.1-43.9); Red Blood Count 4.25 M/mm3 (4.2-5.4); White Blood Count 11.2 K/mm3 (4.4-11.0)
[2023-07-25 06:23] LABS: Differential Indicated SCAN CRITERIA MET
[2023-07-25 06:45] LABS: Differential Comment SCANNED
[2023-07-25 07:12] LABS: ALB/GLOB Ratio 0.8 RATIO (0.9-2.4); AST(SGOT) 16 U/L (15-37); Alanine Aminotransfer ALT/SGPT 20 U/L (13-56); Albumin, Serum 3.1 g/dL (3.2-5.0); Alkaline Phosphatase 75 U/L (45-117); Anion Gap 11 (5-15); BUN 18 mg/dL (7-18); BUN/Creat Ratio 22.5 RATIO (10-20); Calcium,Total 8.6 mg/dL (8.5-10.1); Chloride 105 mmol/L (98-107); EST Glomerular Filtration Rate 79 mL/min (>60); Est Glom Filt Rate - Afr Amer 96 mL/min (>60); Estimated Creatinine Clearance 68.61 ml/min; Globulin 3.8 g/dL (2.2-4.2); Glucose 113 mg/dL (74-106); Magnesium 1.8 mg/dL (1.6-2.6); Phosphorus 2.9 mg/dL (2.5-4.9); Potassium 4.3 mmol/L (3.5-5.1); Protein, Total 6.9 g/dL (6.4-8.2); Sodium Level 140 mmol/L (136-145); Thyroid Stim Hormone (TSH) 1.67 uIU/mL (0.358-3.74)
--- NOTE | 2023-07-25 08:27 | PCM.PN.HOSP ---
Reason for Visit Reason for Visit: Diagnoses Cellulitis, unspecified (07/25/23) Hyperglycemia, unspecified (07/25/23) Other specified health status (07/25/23) Subjective Subjective Patient laying on stomach in bed with CPAP on, reports she feels cold which is unusual for her. Legs are not hurting when she is laying there but do still hurt when she moves around, does not notice much of a difference yet. Reports having some belching as well Objective Data Objective Data Vital Signs: Vital Signs Temp Pulse Resp BP Pulse Ox O2 Del Method 98.0 F 76 18 156/65 H 97 CPAP 07/25/23 03:44 07/25/23 03:44 07/25/23 03:44 07/25/23 03:44 07/25/23 03:44 07/25/23 03:44 Oxygen Delivery Method CPAP Weight: 223.6 kg Body Mass Index (BMI) 82.1 Intake & Output: Intake and Output for Last 24 Hours 07/23/23 07/24/23 07/25/23 23:59 23:59 23:59 Intake Total 740 / 740 Balance 740 / 740 Lab / Micro Data 07/25/23 04:45 07/25/23 04:45 Labs: Laboratory Results - last 24 hr 07/24/23 23:22: WBC 11.1 H, RBC 4.40, Hgb 12.2, Hct 38.0, MCV 86.4, MCH 27.7, MCHC 32.1, RDW Std Deviation 48.1 H, RDW Coeff of Rani 15.2 H, Plt Count 209, MPV 9.2, Immature Gran % (Auto) 0.600, Neut % (Auto) 84.5 H, Lymph % (Auto) 8.1 L, Curry % (Auto) 6.7, Eos % (Auto) 0.0, Baso % (Auto) 0.1, Absolute Neuts (auto) 9.4 H, Absolute Lymphs (auto) 0.90, Nucleated RBC % 0, ESR 35 H, Sodium 138, Potassium 4.2, Chloride 107, Carbon Dioxide 28.0, Anion Gap 3 L, BUN 20 H, Creatinine 0.86, Estim Creat Clear Calc 66.51, Est GFR (MDRD) Af Amer 89, Est GFR (MDRD) Non-Af 73, BUN/Creatinine Ratio 23.4 H, Glucose 118 H, Hemoglobin A1c 5.9 H, Lactic Acid 1.6, Calcium 8.9, Total Bilirubin 0.30, AST 12 L, ALT 19, Alkaline Phosphatase 87, C-React Prot Ext Range 21.50 H, Total Protein 7.1, Albumin 3.2, Globulin 3.9, Albumin/Globulin Ratio 0.8 L 07/25/23 04:45: WBC 11.2 H, RBC 4.25, Hgb 11.7 L, Hct 37.0, MCV 87.1, MCH 27.5, MCHC 31.6 L, RDW Std Deviation 49.1 H, RDW Coeff of Rnai 15.4 H, Plt Count 203, MPV 9.8, Immature Gran % (Auto) 0.600, Neut % (Auto) 89.3 H, Lymph % (Auto) 4.5 L, Curry % (Auto) 5.5, Eos % (Auto) 0.0, Baso % (Auto) 0.1, Absolute Neuts (auto) 10.0 H, Absolute Lymphs (auto) 0.50 L, Nucleated RBC % 0, Differential Comment SCANNED, Sodium 140, Potassium 4.3, Chloride 105, Carbon Dioxide 24.0, Anion Gap 11, BUN 18, Creatinine 0.80, Estim Creat Clear Calc 68.61, Est GFR (MDRD) Af Amer 96, Est GFR (MDRD) Non-Af 79, BUN/Creatinine Ratio 22.5 H, Glucose 113 H, Calcium 8.6, Phosphorus 2.9, Magnesium 1.8, Total Bilirubin 0.60, AST 16, ALT 20, Alkaline Phosphatase 75, Total Protein 6.9, Albumin 3.1 L, Globulin 3.8, Albumin/Globulin Ratio 0.8 L, TSH 1.67 Physical Exam Narrative General: Alert, laying in bed, wakes up and interactive but does not feel well HEENT: Atraumatic, normocephalic Eyes: Anicteric, normal conjunctiva, extraocular movements grossly intact Neck: Supple Respiratory: Clear to auscultation bilaterally, normal respiratory effort Cardiovascular: Regular rate GI: Protuberant Extremities: Bilateral lower extremities erythematous primarily from below knee to ankle but also around outpouching above knee left greater than right with no fluctuance but there is warmth and blanching Musculoskeletal: Moving all extremities in bed Neuro: No overt focal neurological deficits Skin: Leg erythema as above Psych: Cooperative Assessment & Plan Assessment/Plan (1) Failure of outpatient treatment: (2) Cellulitis: (3) Hyperglycemia: PLAN: Plan Bilateral lower extremity cellulitis -Started on the right and has to the left -Mild systemic symptoms -Has had 2 rounds of outpatient Keflex and 2 rounds of outpatient doxycycline -Agree with Vanco and Zosyn for now -No wounds to culture -Elevate lower extremities -We will consult wound nurse to help with wrapping lower extremities -Had echocardiogram done on 06/19/2021 at [facility] that showed normal EF and no significant valvular disease however they were unable to estimate right ventricular systolic pressure -ESR and CRP are pending -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 Did have a lower extremity Doppler 07/08/2023 on the right side which demonstrated no right lower extremity DVT. Patient has fever of 100.8 and feels cold, blood culture was unable to be sent yesterday, will repeat cultures and will repeat labs as well to verify patient is not worsening. Patient does not think her legs feel worse she just does not think they feel much better yet, no pain when resting, legs marked. Continue abx at this time Hyperglycemia -Mild -Check hemoglobin A1c with infection -No history of diabetes -07/25: Hemoglobin A1c 5.9, mildly elevated, would benefit from weight loss and lifestyle changes MIGUEL/obesity hypoventilation syndrome -Continue home NIPPV -Follows with Dr. Johnson History of iron deficiency anemia -Hemoglobin stable -Continue home iron supplementation Hypertension -Continue home lisinopril GERD -PPI Depression -Continue home Effexor Osteoarthritis -Scheduled Tylenol Super morbid obesity -BMI 78.5 -Recommend weight loss -Complicates treatment, prognosis, outcomes DVT prophylaxis -Lovenox subcu 40 twice daily CODE STATUS -Full code as per discussion on admission
[2023-07-25] MEDS: Ferrous Sulfate 325 MG Tablet PO (10:11)
[2023-07-25] MEDS: Aspirin E.C. 81 MG Tablet PO (10:11)
[2023-07-25] MEDS: Enoxaparin 40 MG/0.4 ML Syringe SC ×2 (10:11→22:25)
[2023-07-25] MEDS: Ascorbic Acid 500 MG Tablet PO (10:11)
[2023-07-25] MEDS: Pantoprazole Sodium 40 MG Tablet PO (10:12)
[2023-07-25] MEDS: Magnesium Chloride 64 MG Delay Rel.Tablet 128 MG PO (10:12)
[2023-07-25] MEDS: Lisinopril 10 MG Tablet PO (10:13)
[2023-07-25] MEDS: oxyCODONE 5 MG Tablet PO ×2 (13:08→18:37)
[2023-07-25 16:39] LABS: Erythrocyte Sedimentation Rate 50 mm/hr (0-30)
[2023-07-25 16:41] LABS: Absolute Lymphocyte Count 0.74 X10^3/uL (0.83-4.51); Absolute Neutrophil Count 7.5 X10^3/uL (2.0-7.7); Basophil# 0.01 X10^3/uL; Basophil% 0.1 % (0-1); Hematocrit 36.5 % (37-47); Hemoglobin 11.6 g/dL (12.0-15.0); Lymphocyte # 0.74 X10^3/ul (0.83-4.51); Lymphocyte % 8.3 % (19-41); Mean Corp Hgb Conc 31.8 g/dL (32-36); Mean Corpuscular Hgb 27.6 pg (27.0-32.0); Mean Corpuscular Volume 86.7 fL (81-99); Mean Platelet Vol. 10.1 fl (6.2-12.0); Monocyte# 0.58 X10^3/uL; Monocyte% 6.5 % (0-10); NRBC Flagged by Analyzer 0 % (0-5); Neutrophil % 84.5 % (47-70); Platelet Count 209 K/mm3 (150-450); RBC Distribution Width CV 15.5 % (11.6-14.6); RBC Distribution Width SD 49.3 fl (35.1-43.9); Red Blood Count 4.21 M/mm3 (4.2-5.4); White Blood Count 8.9 K/mm3 (4.4-11.0)
[2023-07-25 16:47] LABS: ALB/GLOB Ratio 0.8 RATIO (0.9-2.4); AST(SGOT) 14 U/L (15-37); Alanine Aminotransfer ALT/SGPT 20 U/L (13-56); Albumin, Serum 3.1 g/dL (3.2-5.0); Alkaline Phosphatase 71 U/L (45-117); Anion Gap 4 (5-15); BUN 14 mg/dL (7-18); BUN/Creat Ratio 16.8 RATIO (10-20); Calcium,Total 8.9 mg/dL (8.5-10.1); Chloride 105 mmol/L (98-107); Creatinine, Serum 0.83 mg/dL (0.55-1.02); EST Glomerular Filtration Rate 75 mL/min (>60); Est Glom Filt Rate - Afr Amer 91 mL/min (>60); Estimated Creatinine Clearance 66.13 ml/min; Globulin 3.9 g/dL (2.2-4.2); Glucose 102 mg/dL (74-106); Potassium 3.9 mmol/L (3.5-5.1); Sodium Level 135 mmol/L (136-145)
[2023-07-25 16:52] LABS: Lactic Acid 1.5 mmol/L (0.4-1.9)
--- NOTE | 2023-07-25 17:38 | CASEMGMT ---
MORIS PATIÑO DC Planning Assessment: Face to Face with patient for initial transition planning/care coordination assessment.?MORIS PATIÑO introduced self and role at [facility], pt alert, answers questions appropriately, voices understanding, and is agreeable to participating in assessment w/sister at bedside.? Care providers, pharmacy,?and demographics verified. ? 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 LIANNA Soto LNOK: spouse Naman, sister/LIANNA Serrano Living Arrangements: Pt lives with her spouse in a single story home with 2 steps to enter w/HR. Pt denies any difficulty with these steps and states she is independent with ADLs and her spouse assists with household tasks. Transportation: Pt drives and denies any concerns with transporation. DME: rollator, built in bench in walk in shower, grab bars, hand held shower, nebulizer, bipap from [facility], pulse oximeter, lymphedema boots HHC: has had in the past but unable to recall the name of the company SNF: none Acute rehab: [facility] ? Plan: Return home with the support of her spouse and family. Pt denies any needs including HH at this time. Will continue to monitor and assist with DC planning needs as identified. Bronwyn Bethea RN CM
[2023-07-26 02:00] VITALS: BP 98/50; PULSE 80; RESP 18; TEMP 36.6; O2SAT 97
[2023-07-26 02:54] LABS: Absolute Lymphocyte Count 1.07 X10^3/uL (0.83-4.51); Absolute Neutrophil Count 4.4 X10^3/uL (2.0-7.7); Basophil# 0.01 X10^3/uL; Basophil% 0.2 % (0-1); Eosinophil# 0.01 X10^3/uL; Eosinophils% 0.2 % (0-5); Hematocrit 34.8 % (37-47); Lymphocyte # 1.07 X10^3/ul (0.83-4.51); Lymphocyte % 17.4 % (19-41); Mean Corp Hgb Conc 31.6 g/dL (32-36); Mean Corpuscular Hgb 27.9 pg (27.0-32.0); Mean Corpuscular Volume 88.3 fL (81-99); Mean Platelet Vol. 9.5 fl (6.2-12.0); Monocyte# 0.65 X10^3/uL; Monocyte% 10.6 % (0-10); NRBC Flagged by Analyzer 0 % (0-5); Neutrophil # 4.38 X10^3/uL (2.7-7.7); Platelet Count 170 K/mm3 (150-450); RBC Distribution Width CV 15.6 % (11.6-14.6); RBC Distribution Width SD 50.8 fl (35.1-43.9); Red Blood Count 3.94 M/mm3 (4.2-5.4); White Blood Count 6.2 K/mm3 (4.4-11.0)
[2023-07-26 03:06] LABS: Erythrocyte Sedimentation Rate 37 mm/hr (0-30)
[2023-07-26 03:20] LABS: Vancomycin, Trough Level 15.1 ug/mL (5.0-15.0)
--- NOTE | 2023-07-26 03:25 | PCM.RX.CS ---
Consult Antibiotic Management Pharmacy has been consulted to manage selected antiobiotic: Vancomycin Type of Intervention Type of Consult: Follow-up Labs Labs: Vancomycin Trough 15.1 ug/mL (5.0-15.0) H 07/26/23 02:42 Pharmacy Plan for Drug Dosing Pharmacy Plan for Drug Dosing: Pharmacy Service will continue to monitor and adjust dosing as required. TROUGH 15.1 @ 8 HOURS. NO CHANGES, FOLLOW UP TROUGH IN 2 DAYS Follow-Up Labs Follow-Up Labs: Trough: Vancomycin Date/Time Labs Ordered Labs to be done on [date and time ordered]: 07/28 @ 2780
[2023-07-26 04:05] LABS: Anion Gap 6 (5-15); BUN 10 mg/dL (7-18); BUN/Creat Ratio 13.4 RATIO (10-20); Calcium,Total 8.3 mg/dL (8.5-10.1); Chloride 108 mmol/L (98-107); Creatinine, Serum 0.75 mg/dL (0.55-1.02); EST Glomerular Filtration Rate 86 mL/min (>60); Est Glom Filt Rate - Afr Amer 104 mL/min (>60); Estimated Creatinine Clearance 73.19 ml/min; Glucose 108 mg/dL (74-106); Sodium Level 139 mmol/L (136-145)
[2023-07-26] MEDS: Acetaminophen 500 MG Tablet 1000 MG PO (06:13)
[2023-07-26 08:00] VITALS: BP 127/63; PULSE 63; RESP 16; TEMP 36.3; O2SAT 96
[2023-07-26] MEDS: Enoxaparin 40 MG/0.4 ML Syringe SC ×2 (08:33→22:31)
[2023-07-26] MEDS: Magnesium Chloride 64 MG Delay Rel.Tablet 128 MG PO (08:33)
[2023-07-26] MEDS: Pantoprazole Sodium 40 MG Tablet PO (08:33)
[2023-07-26] MEDS: Lisinopril 10 MG Tablet PO (08:33)
[2023-07-26] MEDS: Aspirin E.C. 81 MG Tablet PO (08:33)
--- NOTE | 2023-07-26 08:50 | PN.HOSP_ITS ---
Reason for Visit Reason for Visit: Diagnoses Cellulitis, unspecified (07/25/23) Hyperglycemia, unspecified (07/25/23) Other specified health status (07/25/23) Subjective Subjective Patient is feeling better than yesterday, still some pain primarily in the mid left leg but has not been feeling the chills, follow-up with dizzy earlier this morning that is resolved Objective Data Objective Data Vital Signs: Vital Signs Temp Pulse Resp BP Pulse Ox O2 Del Method 97.8 F 80 18 98/50 L 97 CPAP 07/26/23 02:00 07/26/23 02:00 07/26/23 02:00 07/26/23 02:00 07/26/23 02:00 07/26/23 02:00 Oxygen Delivery Method CPAP Weight: 223.6 kg Body Mass Index (BMI) 82.1 Intake & Output: Intake and Output for Last 24 Hours 07/24/23 07/25/23 07/26/23 23:59 23:59 23:59 Intake Total 2640 / 2940 1140 / 1140 Balance 2640 / 2940 1140 / 1140 Lab / Micro Data 07/26/23 02:42 07/26/23 02:42 Labs: Laboratory Results - last 24 hr 07/25/23 16:07: WBC 8.9, RBC 4.21, Hgb 11.6 L, Hct 36.5 L, MCV 86.7, MCH 27.6, MCHC 31.8 L, RDW Std Deviation 49.3 H, RDW Coeff of Rani 15.5 H, Plt Count 209, MPV 10.1, Immature Gran % (Auto) 0.600, Neut % (Auto) 84.5 H, Lymph % (Auto) 8.3 L, Bryan % (Auto) 6.5, Eos % (Auto) 0.0, Baso % (Auto) 0.1, Absolute Neuts (auto) 7.5, Absolute Lymphs (auto) 0.74 L, Nucleated RBC % 0, ESR 50 H, Sodium 135 L, Potassium 3.9, Chloride 105, Carbon Dioxide 26.0, Anion Gap 4 L, BUN 14, Creatinine 0.83, Estim Creat Clear Calc 66.13, Est GFR (MDRD) Af Amer 91, Est GFR (MDRD) Non-Af 75, BUN/Creatinine Ratio 16.8, Glucose 102, Lactic Acid 1.5, Calcium 8.9, Total Bilirubin 0.60, AST 14 L, ALT 20, Alkaline Phosphatase 71, C- React Prot Ext Range 141.00 H, Total Protein 7.0, Albumin 3.1 L, Globulin 3.9, Albumin/Globulin Ratio 0.8 L, Procalcitonin 0.10 H 07/26/23 02:42: WBC 6.2, RBC 3.94 L, Hgb 11.0 L, Hct 34.8 L, MCV 88.3, MCH 27.9, MCHC 31.6 L, RDW Std Deviation 50.8 H, RDW Coeff of Rani 15.6 H, Plt Count 170, MPV 9.5, Immature Gran % (Auto) 0.600, Neut % (Auto) 71.0 H, Lymph % (Auto) 17.4 L, Bryan % (Auto) 10.6 H, Eos % (Auto) 0.2, Baso % (Auto) 0.2, Absolute Neuts (auto) 4.4, Absolute Lymphs (auto) 1.07, Nucleated RBC % 0, ESR 37 H, Sodium 139, Potassium 4.0, Chloride 108 H, Carbon Dioxide 25.0, Anion Gap 6, BUN 10, Creatinine 0.75, Estim Creat Clear Calc 73.19, Est GFR (MDRD) Af Amer 104, Est GFR (MDRD) Non-Af 86, BUN/Creatinine Ratio 13.4, Glucose 108 H, Calcium 8.3 L, C-React Prot Ext Range 142.00 H, Vancomycin Trough 15.1 H Physical Exam Narrative General: Alert, oriented, no apparent distress HEENT: Atraumatic, normocephalic Eyes: Anicteric, normal conjunctiva, extraocular movements grossly intact Neck: Supple Respiratory: Clear to auscultation bilaterally, normal respiratory effort Cardiovascular: Regular rate and rhythm GI: Soft, nontender, nondistended Extremities: As below Musculoskeletal: Moving all extremities Neuro: No overt focal neurological deficits Skin: Primarily localized erythema on the left leg above the knee still within the margins of the outline without fluctuance but is tender, rest of legs are improving from erythema perspective, some chronic changes bilaterally Psych: Cooperative Assessment & Plan Assessment/Plan (1) Failure of outpatient treatment: (2) Cellulitis: (3) Hyperglycemia: PLAN: Plan Bilateral lower extremity cellulitis -Started on the right and has to the left -Mild systemic symptoms -Has had 2 rounds of outpatient Keflex and 2 rounds of outpatient doxycycline -Agree with Vanco and Oneidasyn for now -No wounds to culture -Elevate lower extremities -We will consult wound nurse to help with wrapping lower extremities -Had echocardiogram done on 06/19/2021 at [facility] that showed normal EF and no significant valvular disease however they were unable to estimate right ventricular systolic pressure -ESR and CRP are pending -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 Did have a lower extremity Doppler 07/08/2023 on the right side which demonstrated no right lower extremity DVT. Patient has fever of 100.8 and feels cold, blood culture was unable to be sent yesterday, will repeat cultures and will repeat labs as well to verify patient is not worsening. Patient does not think her legs feel worse she just does not think they feel much better yet, no pain when resting, legs marked. Continue abx at this time -07/26: CRP stabilized and ESR trending down, no wound culture however blood cultures pending, continue to monitor improvement, BP variable but MAP adequate, will give small bolus of fluids and hold lisinopril, additionally given legs have improved significantly but has 1 localized area that is much slower to respond will obtain ultrasound to assess for area that may need drained Hyperglycemia -Mild -Check hemoglobin A1c with infection -No history of diabetes -07/25: Hemoglobin A1c 5.9, mildly elevated, would benefit from weight loss and lifestyle changes MIGUEL/obesity hypoventilation syndrome -Continue home NIPPV -Follows with Dr. Johnson History of iron deficiency anemia -Hemoglobin stable -Continue home iron supplementation Hypertension -Continue home lisinopril GERD -PPI Depression -Continue home Effexor Osteoarthritis -Scheduled Tylenol Super morbid obesity -BMI 78.5 -Recommend weight loss -Complicates treatment, prognosis, outcomes DVT prophylaxis -Lovenox subcu 40 twice daily CODE STATUS -Full code as per discussion on admission Time spent in the patient's overall evaluation,decision-making process, review of diagnostic data, adjustment of management, discussion with other providers, nursing nursing and ancillary staff involved in patient's care documentation, 36 minutes Charges/Coding Visit Charges Inpatient E&M: 33548 Subs Hosp L2
[2023-07-26] MEDS: Venlafaxine XR 75 MG Capsule 225 MG PO (11:01)
--- NOTE | 2023-07-26 11:42 | US_ITS ---
STUDY: SUPERFICIAL ULTRASOUND - LEFT LOWER EXTREMITY REASON FOR EXAM: Female, 53 years old. Left leg cellulitis, eval for underlying abscess TECHNIQUE: A superficial ultrasound was performed with real-time and static max-scale imaging. COMPARISON: None. FINDINGS: Sonographic evaluation of the subcutaneous tissue of the left lower extremity. There is no demonstrated fluid collection to suspect an abscess. There is subcutaneous edema but no hyperemia. US/Ext Non Vasc Limited/Soft Tiss IMPRESSION: Subcutaneous edema without evidence of abscess. Electronically Signed: Tacos Liz MD at 10:13 EDT ,
[2023-07-26] MEDS: Lactated Ringers 1,000 ML 75 ML IV (12:44)
[2023-07-26] MEDS: Ascorbic Acid 500 MG Tablet PO (12:46)
[2023-07-26] MEDS: Ferrous Sulfate 325 MG Tablet PO (12:46)
[2023-07-26 14:00] VITALS: BP 127/69; PULSE 63; RESP 16; TEMP 36.7; O2SAT 98
[2023-07-26] MEDS: Acetaminophen 325 MG Tablet 650 MG PO (15:26)
[2023-07-26 17:08] LABS: M R Staph aureus DNA By PCR Negative (Negative); Probe Check PASS; Specimen Processing Control PASS; Staph aureus DNA By PCR POSITIVE (Negative)
[2023-07-26 20:00] VITALS: BP 130/73; PULSE 72; RESP 18; TEMP 36.9; O2SAT 95
[2023-07-27 03:21] VITALS: BP 105/55; PULSE 73; RESP 18; TEMP 36.9; O2SAT 94
[2023-07-27 06:58] LABS: Absolute Lymphocyte Count 0.93 X10^3/uL (0.83-4.51); Absolute Neutrophil Count 4.7 X10^3/uL (2.0-7.7); Basophil# 0.01 X10^3/uL; Basophil% 0.2 % (0-1); Eosinophil# 0.01 X10^3/uL; Eosinophils% 0.2 % (0-5); Hematocrit 33.6 % (37-47); Hemoglobin 10.3 g/dL (12.0-15.0); Lymphocyte # 0.93 X10^3/ul (0.83-4.51); Lymphocyte % 14.6 % (19-41); Mean Corp Hgb Conc 30.7 g/dL (32-36); Mean Corpuscular Hgb 27.2 pg (27.0-32.0); Mean Corpuscular Volume 88.9 fL (81-99); Mean Platelet Vol. 10.2 fl (6.2-12.0); Monocyte# 0.68 X10^3/uL; Monocyte% 10.7 % (0-10); NRBC Flagged by Analyzer 0 % (0-5); Neutrophil % 73.7 % (47-70); Platelet Count 163 K/mm3 (150-450); RBC Distribution Width CV 15.5 % (11.6-14.6); RBC Distribution Width SD 50.8 fl (35.1-43.9); Red Blood Count 3.78 M/mm3 (4.2-5.4); White Blood Count 6.4 K/mm3 (4.4-11.0)
[2023-07-27 07:19] LABS: Anion Gap 3 (5-15); BUN 8 mg/dL (7-18); BUN/Creat Ratio 11.1 RATIO (10-20); Calcium,Total 8.1 mg/dL (8.5-10.1); Chloride 108 mmol/L (98-107); Creatinine, Serum 0.72 mg/dL (0.55-1.02); EST Glomerular Filtration Rate 89 mL/min (>60); Est Glom Filt Rate - Afr Amer 108 mL/min (>60); Estimated Creatinine Clearance 76.24 ml/min; Glucose 110 mg/dL (74-106); Potassium 3.9 mmol/L (3.5-5.1); Sodium Level 138 mmol/L (136-145)
[2023-07-27 07:25] LABS: Erythrocyte Sedimentation Rate 47 mm/hr (0-30)
[2023-07-27] MEDS: Enoxaparin 40 MG/0.4 ML Syringe SC ×2 (08:07→21:04)
[2023-07-27] MEDS: Magnesium Chloride 64 MG Delay Rel.Tablet 128 MG PO (08:08)
[2023-07-27] MEDS: Aspirin E.C. 81 MG Tablet PO (08:08)
[2023-07-27] MEDS: Venlafaxine XR 75 MG Capsule 225 MG PO (08:08)
[2023-07-27] MEDS: Pantoprazole Sodium 40 MG Tablet PO (08:08)
[2023-07-27 08:20] VITALS: BP 137/72; PULSE 86; RESP 18; TEMP 36.6; O2SAT 92
[2023-07-27 08:53] VITALS: O2SAT 91
--- NOTE | 2023-07-27 09:36 | PCM.PN.HOSP ---
Reason for Visit Reason for Visit: Diagnoses Cellulitis, unspecified (07/25/23) Hyperglycemia, unspecified (07/25/23) Other specified health status (07/25/23) Subjective Subjective Still has can tenderness making it hard to sit over the cellulitic area above the left knee Objective Data Objective Data Vital Signs: Vital Signs Temp Pulse Resp BP Pulse Ox O2 Del Method 98 F 86 18 137/72 H 91 Room Air 07/27/23 08:20 07/27/23 08:20 07/27/23 08:20 07/27/23 08:20 07/27/23 08:53 07/27/23 08:53 Oxygen Delivery Method Room Air Weight: 223.6 kg Body Mass Index (BMI) 82.1 Intake & Output: Intake and Output for Last 24 Hours 07/25/23 07/26/23 07/27/23 23:59 23:59 23:59 Intake Total 2640 / 2940 3280.00 / 3630.00 1930 / 1930 Balance 2640 / 2940 3280.00 / 3630.00 1930 / 1930 Lab / Micro Data 07/27/23 05:26 07/27/23 05:26 Labs: Laboratory Results - last 24 hr 07/26/23 15:10: S.aureus Protein A PCR POSITIVE H, MRSA (PCR) Negative 07/27/23 05:26: WBC 6.4, RBC 3.78 L, Hgb 10.3 L, Hct 33.6 L, MCV 88.9, MCH 27.2, MCHC 30.7 L, RDW Std Deviation 50.8 H, RDW Coeff of Rani 15.5 H, Plt Count 163, MPV 10.2, Immature Gran % (Auto) 0.600, Neut % (Auto) 73.7 H, Lymph % (Auto) 14.6 L, [place] % (Auto) 10.7 H, Eos % (Auto) 0.2, Baso % (Auto) 0.2, Absolute Neuts (auto) 4.7, Absolute Lymphs (auto) 0.93, Nucleated RBC % 0, ESR 47 H, Sodium 138, Potassium 3.9, Chloride 108 H, Carbon Dioxide 27.0, Anion Gap 3 L, BUN 8, Creatinine 0.72, Estim Creat Clear Calc 76.24, Est GFR (MDRD) Af Amer 108, Est GFR (MDRD) Non-Af 89, BUN/Creatinine Ratio 11.1, Glucose 110 H, Calcium 8.1 L, C-React Prot Ext Range 138.00 H Physical Exam Narrative General: Alert, oriented, no apparent distress HEENT: Atraumatic, normocephalic Eyes: Anicteric, normal conjunctiva, extraocular movements grossly intact Neck: Supple Respiratory: Clear to auscultation bilaterally, normal respiratory effort Cardiovascular: Regular rate and rhythm GI: Soft, nontender, nondistended Extremities: As below Musculoskeletal: Moving all extremities Neuro: No overt focal neurological deficits Skin: Primarily localized erythema on the left leg above the knee still within the margins of the outline without fluctuance but is tender, rest of legs are improving from erythema perspective, some chronic changes bilaterally Psych: Cooperative Assessment & Plan Assessment/Plan (1) Failure of outpatient treatment: (2) Cellulitis: (3) Hyperglycemia: PLAN: Plan Bilateral lower extremity cellulitis -Started on the right and has to the left -Mild systemic symptoms -Has had 2 rounds of outpatient Keflex and 2 rounds of outpatient doxycycline -Agree with Vanco and Andren for now -No wounds to culture -Elevate lower extremities -We will consult wound nurse to help with wrapping lower extremities -Had echocardiogram done on 06/19/2021 at [facility] that showed normal EF and no significant valvular disease however they were unable to estimate right ventricular systolic pressure -ESR and CRP are pending -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 Did have a lower extremity Doppler 07/08/2023 on the right side which demonstrated no right lower extremity DVT. Patient has fever of 100.8 and feels cold, blood culture was unable to be sent yesterday, will repeat cultures and will repeat labs as well to verify patient is not worsening. Patient does not think her legs feel worse she just does not think they feel much better yet, no pain when resting, legs marked. Continue abx at this time -07/26: CRP stabilized and ESR trending down, no wound culture however blood cultures pending, continue to monitor improvement, BP variable but MAP adequate, will give small bolus of fluids and hold lisinopril, additionally given legs have improved significantly but has 1 localized area that is much slower to respond will obtain ultrasound to assess for area that may need drained -07/27: Blood cultures no growth to date, most patient cellulitis improved on the broad-spectrum antibiotics however she still has the localized cellulitic area on left thigh without significant improvement, CRP still remains significantly elevated. Ultrasound without drainable abscess. Will consult ID for additional input given patient has area that is not responding to antibiotics as the rest of leg did Hyperglycemia -Mild -Check hemoglobin A1c with infection -No history of diabetes -07/25: Hemoglobin A1c 5.9, mildly elevated, would benefit from weight loss and lifestyle changes MIGUEL/obesity hypoventilation syndrome -Continue home NIPPV -Follows with Dr. Johnson History of iron deficiency anemia -Hemoglobin stable -Continue home iron supplementation Hypertension -Continue home lisinopril GERD -PPI Depression -Continue home Effexor Osteoarthritis -Scheduled Tylenol Super morbid obesity -BMI 78.5 -Recommend weight loss -Complicates treatment, prognosis, outcomes DVT prophylaxis -Lovenox subcu 40 twice daily CODE STATUS -Full code as per discussion on admission Charges/Coding Visit Charges Inpatient E&M: 62037 Subs Hosp L2
[2023-07-27] MEDS: 0.9% Saline Lock 10 ML Syringe IV (12:32)
[2023-07-27] MEDS: Ascorbic Acid 500 MG Tablet PO (12:54)
[2023-07-27] MEDS: Ferrous Sulfate 325 MG Tablet PO (12:54)
--- NOTE | 2023-07-27 13:58 | CON.PCM.ID_ITS ---
Assessment & Plan Assessment/Plan (1) Lymphedema associated with obesity: (2) Cellulitis: PLAN: recurrent RLE cellulitis, now developed LLE cellulitis on outpt doxy/keflex. Improving here on vanc/zosyn. Will narrow to ceftriaxone for n onpurulent cellulitis, will need to consider residential amox as prophylaxis and referral to edema clinic for prevention. Will follow, thank you HPI Consult Data Date of Consult: 07/27/23 HPI Narrative Reason for Consultation: recurrent cellulitis HPI Narrative: PHILLIP GARCIA, is a 53 F with h/o chronic edema, presented 07/25 with recurrent RLE cellulitis. Has been on 10-14 days of abx every month since January due to recurrent RLE cellulitis. Most courses with keflex, sx improve briefly. Over past month has been on keflex again, then doxy added two weeks ago, then over past few days prior to admit, LLE started to rapidly progressive pain, redness, swelling. No drainage. Some associated fever and chills. Admitted here on vanc/zosyn, cellulitis improving. Full ROS performed and neg except as noted above. [facility] Medical History Abnormal echocardiogram Anxiety Ascending aorta dilatation Asthma Depression GERD without esophagitis Heel spur IBS (irritable bowel syndrome) Insomnia Osteoarthritis (arthritis due to wear and tear of joints) Home Medications acetaminophen 500 mg capsule 1,000 mg PO Q6H PRN Pain 07/11/21 [History Last Taken Unknown] aspirin 81 mg tablet,delayed release (Adult Low Dose Aspirin) 81 mg PO DAILY 07/11/21 [History Last Taken Unknown] ascorbic acid (vitamin C) 500 mg tablet 500 mg PO 1200 #0 tabs 08/01/21 [Rx Last Taken Unknown] ferrous sulfate 325 mg (65 mg iron) tablet (FeroSul) 325 mg PO DAILY@1200 #30 tabs 08/01/21 [Rx Last Taken Unknown] magnesium oxide 400 mg PO DAILY #30 caps 08/01/21 [Rx Last Taken Unknown] venlafaxine 75 mg capsule,extended release 24 hr (Effexor XR) 225 mg (3 x 75 mg) PO DAILY #90 caps 09/03/21 [Rx Last Taken Unknown] Lactobacillus acidophilus (Acidophilus capsule) 10 mg PO DAILY 07/24/23 [History Last Taken Unknown] cholestyramine (with sugar) 4 gram oral powder ea 07/24/23 [History Last Taken Unknown] doxycycline hyclate 100 mg capsule 100 mg PO BID 07/24/23 [History Last Taken Unknown] lisinopril 10 mg tablet 10 mg PO DAILY 07/24/23 [History Last Taken Unknown] omeprazole 40 mg capsule,delayed release 40 mg PO DAILY 07/24/23 [History Last Taken Unknown] pediatric multivitamin .Route 07/24/23 [History Last Taken Unknown] Allergy/AdvReac Type Severity Reaction Status Date / Time adhesive tape AdvReac Unknown Other Verified 07/24/23 22:53 Family History Mother Alzheimer's dementia Surgical History H/O foot surgery History of cholecystectomy History of hip surgery Social History household members: spouse housing: house number of children: 1 current occupational status: employed 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 For lunch she has a bowl of soup and crackers which she takes to work. Sometimes has pretzels for a snack. Eats lunch at 12:30- 1 and does not get home until 7 PM and then she is starved. Her sometimes cooks and it is usually not healthy and may include pizza, hot dogs, fast food. Does not plan meals and her hisband is not supportive of healthy eating. He is a little overweight and likes to eat junk. Physical Exam Const alert, oriented x3 and no apparent distress General Appearance: cooperative HEENT normocephalic and head/scalp atraumatic Eyes PERRL and EOMs intact bilaterally Neck supple and No nodes Resp normal air movement and clear to auscultation bilaterally Cardio regular rate and regular rhythm GI soft to palpation, non-tender and non-distended Extremity General Extremity: edema Skin Skin Narrative: BLE erythema, mild redness and induration Neuro CN's II-XII intact bilaterally Lab / Micro Data Attestation: I reviewed the patient's lab results. 07/27/23 05:26 07/27/23 05:26 Labs: Laboratory Results - last 24 hr 07/26/23 15:10: S.aureus Protein A PCR POSITIVE H, MRSA (PCR) Negative 07/27/23 05:26: WBC 6.4, RBC 3.78 L, Hgb 10.3 L, Hct 33.6 L, MCV 88.9, MCH 27.2, MCHC 30.7 L, RDW Std Deviation 50.8 H, RDW Coeff of Rani 15.5 H, Plt Count 163, MPV 10.2, Immature Gran % (Auto) 0.600, Neut % (Auto) 73.7 H, Lymph % (Auto) 14.6 L, [place] % (Auto) 10.7 H, Eos % (Auto) 0.2, Baso % (Auto) 0.2, Absolute Neuts (auto) 4.7, Absolute Lymphs (auto) 0.93, Nucleated RBC % 0, ESR 47 H, Sodium 138, Potassium 3.9, Chloride 108 H, Carbon Dioxide 27.0, Anion Gap 3 L, BUN 8, Creatinine 0.72, Estim Creat Clear Calc 76.24, Est GFR (MDRD) Af Amer 108, Est GFR (MDRD) Non-Af 89, BUN/Creatinine Ratio 11.1, Glucose 110 H, Calcium 8.1 L, C-React Prot Ext Range 138.00 H Radiology Impression Soft Tissue Ultrasound 07/26/23 11:42 IMPRESSION: Subcutaneous edema without evidence of abscess. Electronically Signed: Tacos Liz MD at 10:13 EDT ,
[2023-07-27] MEDS: Acetaminophen 325 MG Tablet 650 MG PO ×2 (14:55→21:03)
[2023-07-27 15:00] VITALS: BP 135/64; PULSE 70; RESP 20; TEMP 36.8; O2SAT 94
--- NOTE | 2023-07-27 15:22 | WOUNDNOTE ---
Was asked to see patient for redness to bilateral lower leg. patient is super morbidly obese. pt states the redness started in one small area on the right leg and then spread to both legs very quickly. patient s/o some burning to the posterior legs. states it feels like a sunburn. there are no open areas to culture. patient states she does not wear compression. D/T the shape of the legs, it is difficult to get good even compression. most likely patient would get some constriction at the ankles even with padding. Patient states she does have lymphedema pumps that she does not use often. educated patient on the importance of compression and elevation. since typical compression is not really an option, the pumps are even more needed. patient does have some dry flaky skin. states her sister plans to help with a shower later. Eucerin os ordered for the dry skin. see skin photos.
--- NOTE | 2023-07-27 15:27 | WOUNDNOTE ---
skin photo: bilateral legs
[2023-07-27 20:49] VITALS: BP 148/83; PULSE 69; RESP 18; TEMP 37.2; O2SAT 97
--- NOTE | 2023-07-27 20:59 | CPS ---
Pt set up on own CPAP machine for the night
[2023-07-28] MEDS: Petrolatum 33% Tube 1 APPLIC TOPICAL (01:20)
[2023-07-28 01:38] VITALS: BP 111/57; PULSE 61; RESP 16; TEMP 37.2; O2SAT 95
[2023-07-28 07:05] VITALS: O2SAT 93
[2023-07-28 07:15] LABS: Absolute Lymphocyte Count 0.97 X10^3/uL (0.83-4.51); Absolute Neutrophil Count 4.2 X10^3/uL (2.0-7.7); Basophil# 0.01 X10^3/uL; Basophil% 0.2 % (0-1); Eosinophil# 0.01 X10^3/uL; Eosinophils% 0.2 % (0-5); Hematocrit 33.8 % (37-47); Hemoglobin 10.5 g/dL (12.0-15.0); Lymphocyte # 0.97 X10^3/ul (0.83-4.51); Lymphocyte % 16.6 % (19-41); Mean Corp Hgb Conc 31.1 g/dL (32-36); Mean Corpuscular Hgb 27.1 pg (27.0-32.0); Mean Corpuscular Volume 87.3 fL (81-99); Mean Platelet Vol. 10.3 fl (6.2-12.0); Monocyte# 0.66 X10^3/uL; Monocyte% 11.3 % (0-10); NRBC Flagged by Analyzer 0 % (0-5); Neutrophil # 4.16 X10^3/uL (2.7-7.7); Platelet Count 175 K/mm3 (150-450); RBC Distribution Width CV 15.2 % (11.6-14.6); RBC Distribution Width SD 48.9 fl (35.1-43.9); Red Blood Count 3.87 M/mm3 (4.2-5.4); White Blood Count 5.9 K/mm3 (4.4-11.0)
[2023-07-28 07:45] LABS: Anion Gap 6 (5-15); BUN 7 mg/dL (7-18); BUN/Creat Ratio 10.5 RATIO (10-20); Calcium,Total 8.8 mg/dL (8.5-10.1); Chloride 107 mmol/L (98-107); Creatinine, Serum 0.66 mg/dL (0.55-1.02); EST Glomerular Filtration Rate 98 mL/min (>60); Est Glom Filt Rate - Afr Amer 118 mL/min (>60); Estimated Creatinine Clearance 83.17 ml/min; Glucose 106 mg/dL (74-106); Potassium 3.9 mmol/L (3.5-5.1); Sodium Level 138 mmol/L (136-145)
[2023-07-28 09:49] VITALS: BP 116/62; PULSE 68; RESP 18; TEMP 36.9; O2SAT 95
[2023-07-28] MEDS: Pantoprazole Sodium 40 MG Tablet PO (09:58)
[2023-07-28] MEDS: Enoxaparin 40 MG/0.4 ML Syringe SC ×2 (09:58→21:46)
[2023-07-28] MEDS: Venlafaxine XR 75 MG Capsule 225 MG PO (09:58)
[2023-07-28] MEDS: Magnesium Chloride 64 MG Delay Rel.Tablet 128 MG PO (09:58)
[2023-07-28] MEDS: Aspirin E.C. 81 MG Tablet PO (09:58)
--- NOTE | 2023-07-28 10:28 | PCM.PN.ID ---
Physical Exam Narrative Feeling about the same, some mild chill overnight. LLE still sore. Const alert and no apparent distress General Appearance: cooperative Resp normal air movement and clear to auscultation bilaterally Cardio regular rate and regular rhythm GI soft to palpation, non-tender and non-distended Extremity General Extremity: edema Skin Skin Narrative: RLE cellulitis fading, LLE about the same ID ID: Route of nutrition/ use of supplements: [] Nutritional Intake: [] IV Site: [] Galeano Catheter: [] Assessment & Plan Assessment/Plan (1) Lymphedema associated with obesity: (2) Cellulitis: PLAN: recurrent RLE cellulitis, now developed LLE cellulitis on outpt doxy/keflex. Improving here on vanc/zosyn. 07/27 narrowed ceftriaxone for nonpurulent cellulitis, will need to consider [facility] amox as prophylaxis and referral to edema clinic for prevention. Will add antifungal powder to skin folds Will follow
[2023-07-28] MEDS: Ferrous Sulfate 325 MG Tablet PO (12:03)
[2023-07-28] MEDS: Ascorbic Acid 500 MG Tablet PO (12:03)
--- NOTE | 2023-07-28 13:13 | PN.HOSP_ITS ---
Reason for Visit Reason for Visit: Diagnoses Obesity, unspecified (07/25/23) Lymphedema, not elsewhere classified (07/25/23) Cellulitis, unspecified (07/25/23) Hyperglycemia, unspecified (07/25/23) Other specified health status (07/25/23) Subjective Subjective Patient still having pain localized over the area above her left knee Objective Data Objective Data Vital Signs: Vital Signs Temp Pulse Resp BP Pulse Ox O2 Del Method 98.5 F 68 18 116/62 95 Room Air 07/28/23 09:49 07/28/23 09:49 07/28/23 09:49 07/28/23 09:49 07/28/23 09:49 07/28/23 09:50 Oxygen Delivery Method Room Air Weight: 223.6 kg Body Mass Index (BMI) 82.1 Intake & Output: Intake and Output for Last 24 Hours 07/26/23 07/27/23 07/28/23 23:59 23:59 23:59 Intake Total 3280.00 / 3630.00 2430 / 2630 350 / 350 Balance 3280.00 / 3630.00 2430 / 2630 350 / 350 Lab / Micro Data 07/28/23 06:15 07/28/23 06:15 Labs: Laboratory Results - last 24 hr 07/28/23 06:15: WBC 5.9, RBC 3.87 L, Hgb 10.5 L, Hct 33.8 L, MCV 87.3, MCH 27.1, MCHC 31.1 L, RDW Std Deviation 48.9 H, RDW Coeff of Rani 15.2 H, Plt Count 175, MPV 10.3, Immature Gran % (Auto) 0.700, Neut % (Auto) 71.0 H, Lymph % (Auto) 16.6 L, [place] % (Auto) 11.3 H, Eos % (Auto) 0.2, Baso % (Auto) 0.2, Absolute Neuts (auto) 4.2, Absolute Lymphs (auto) 0.97, Nucleated RBC % 0, Sodium 138, Potassium 3.9, Chloride 107, Carbon Dioxide 25.0, Anion Gap 6, BUN 7, Creatinine 0.66, Estim Creat Clear Calc 83.17, Est GFR (MDRD) Af Amer 118, Est GFR (MDRD) N on-Af 98, BUN/Creatinine Ratio 10.5, Glucose 106, Calcium 8.8 Physical Exam Narrative General: Alert, oriented, no apparent distress HEENT: Atraumatic, normocephalic Eyes: Anicteric, normal conjunctiva, extraocular movements grossly intact Neck: Supple Respiratory: Clear to auscultation bilaterally, normal respiratory effort Cardiovascular: Regular rate and rhythm GI: Soft, nontender, nondistended Extremities: As below Musculoskeletal: Moving all extremities Neuro: No overt focal neurological deficits Skin: Primarily localized erythema on the left leg above the knee rest of legs are improving from erythema perspective, some chronic changes bilaterally Psych: Cooperative Assessment & Plan Assessment/Plan (1) Failure of outpatient treatment: (2) Cellulitis: (3) Hyperglycemia: PLAN: Plan Bilateral lower extremity cellulitis -Started on the right and has to the left -Mild systemic symptoms -Has had 2 rounds of outpatient Keflex and 2 rounds of outpatient doxycycline -Agree with Vanco and Andren for now -No wounds to culture -Elevate lower extremities -We will consult wound nurse to help with wrapping lower extremities -Had echocardiogram done on 06/19/2021 at [facility] that showed normal EF and no significant valvular disease however they were unable to estimate right ventricular systolic pressure -ESR and CRP are pending -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 Did have a lower extremity Doppler 07/08/2023 on the right side which demonstrated no right lower extremity DVT. Patient has fever of 100.8 and feels cold, blood culture was unable to be sent yesterday, will repeat cultures and will repeat labs as well to verify patient is not worsening. Patient does not think her legs feel worse she just does not think they feel much better yet, no pain when resting, legs marked. Continue abx at this time -07/26: CRP stabilized and ESR trending down, no wound culture however blood cultures pending, continue to monitor improvement, BP variable but MAP adequate, will give small bolus of fluids and hold lisinopril, additionally given legs have improved significantly but has 1 localized area that is much slower to respond will obtain ultrasound to assess for area that may need drained -07/27: Blood cultures no growth to date, most patient cellulitis improved on the broad-spectrum antibiotics however she still has the localized cellulitic area on left thigh without significant improvement, CRP still remains significantly elevated. Ultrasound without drainable abscess. Will consult ID for additional input given patient has area that is not responding to antibiotics as the rest of leg did -07/28: Patient switched to Rocephin, may need amoxicillin prophylaxis on a longer-term basis, ID continue to follow, patient still having significant enough pain she is not yet ready for discharge Hyperglycemia -Mild -Check hemoglobin A1c with infection -No history of diabetes -07/25: Hemoglobin A1c 5.9, mildly elevated, would benefit from weight loss and lifestyle changes MIGUEL/obesity hypoventilation syndrome -Continue home NIPPV -Follows with Dr. Johnson History of iron deficiency anemia -Hemoglobin stable -Continue home iron supplementation Hypertension -Continue home lisinopril GERD -PPI Depression -Continue home Effexor Osteoarthritis -Scheduled Tylenol Super morbid obesity -BMI 78.5 -Recommend weight loss -Complicates treatment, prognosis, outcomes DVT prophylaxis -Lovenox subcu 40 twice daily CODE STATUS -Full code as per discussion on admission Time spent in the patient's overall evaluation,decision-making process, review of diagnostic data, adjustment of management, discussion with other providers, nursing nursing and ancillary staff involved in patient's care documentation, 36 minutes Charges/Coding Visit Charges Inpatient E&M: 01743 Subs Hosp L2
[2023-07-28] MEDS: Nystatin Powder 15gm Bottle 1 APPLIC TOPICAL ×2 (14:52→21:44)
[2023-07-28 15:04] VITALS: BP 134/83; PULSE 85; RESP 18; TEMP 36.9; O2SAT 94
--- NOTE | 2023-07-28 15:37 | RAD_ITS ---
STUDY: X-RAY CHEST REASON FOR EXAM: Female, 53 years old patient with shortness of breath. TECHNIQUE: Single AP portable view of the chest. COMPARISON: July 26, 2021. FINDINGS: There are prominent bronchovascular markings throughout both lungs. The lungs are expanded. There is no demonstrated pleural abnormality. There is moderate cardiac enlargement. Normal mediastinum and annelise. There is prominence of the pulmonary hilar arteries with peripheral pulmonary vascular congestion. There is atherosclerotic calcification of the aortic arch with tortuosity. There are diffuse degenerative changes of the visualized thoracic spine. There are degenerative changes of both shoulders. There is no demonstrated abnormality of the visualized soft tissue structures of the upper abdomen. RAD/Chest 1 View (Portable) IMPRESSION: Cardiomegaly and mild pulmonary vascular congestion. Electronically Signed: Yamile Cantu MD at 16:28 EDT ,
[2023-07-28] MEDS: Acetaminophen 325 MG Tablet 650 MG PO (16:52)
[2023-07-28] MEDS: Fluticasone 0.05% 1 SPRAY NASAL.SRY NASAL ×2 (16:53→21:43)
[2023-07-28] MEDS: Furosemide 20 MG/2 ML VIAL IV (16:53)
[2023-07-28] MEDS: 0.9% Saline Lock 10 ML Syringe IV (16:53)
[2023-07-28 17:00] LABS: BNP,B-Type NATRIURETIC PEPTIDE 232.8 pg/mL (0-100)
[2023-07-28 21:29] VITALS: BP 110/64; PULSE 71; RESP 16; TEMP 36.7; O2SAT 95
--- NOTE | 2023-07-28 22:12 | CPS ---
Pt set up on own CPAP machine for the night.
[2023-07-29 03:28] VITALS: BMI 82.1
[2023-07-29 06:12] VITALS: BP 123/68; PULSE 72; RESP 18; TEMP 36.6; O2SAT 96
[2023-07-29 06:48] LABS: Absolute Lymphocyte Count 0.95 X10^3/uL (0.83-4.51); Absolute Neutrophil Count 3.7 X10^3/uL (2.0-7.7); Basophil# 0.01 X10^3/uL; Basophil% 0.2 % (0-1); Eosinophil# 0.01 X10^3/uL; Eosinophils% 0.2 % (0-5); Hematocrit 33.8 % (37-47); Hemoglobin 10.5 g/dL (12.0-15.0); Lymphocyte # 0.95 X10^3/ul (0.83-4.51); Lymphocyte % 17.9 % (19-41); Mean Corp Hgb Conc 31.1 g/dL (32-36); Mean Corpuscular Hgb 27.3 pg (27.0-32.0); Mean Corpuscular Volume 87.8 fL (81-99); Mean Platelet Vol. 9.8 fl (6.2-12.0); Monocyte# 0.58 X10^3/uL; Monocyte% 10.9 % (0-10); NRBC Flagged by Analyzer 0 % (0-5); Neutrophil # 3.71 X10^3/uL (2.7-7.7); Neutrophil % 69.9 % (47-70); Platelet Count 180 K/mm3 (150-450); RBC Distribution Width CV 14.9 % (11.6-14.6); RBC Distribution Width SD 48.2 fl (35.1-43.9); Red Blood Count 3.85 M/mm3 (4.2-5.4); White Blood Count 5.3 K/mm3 (4.4-11.0)
[2023-07-29 07:15] LABS: Anion Gap 5 (5-15); BUN 10 mg/dL (7-18); BUN/Creat Ratio 13.8 RATIO (10-20); Calcium,Total 8.7 mg/dL (8.5-10.1); Chloride 106 mmol/L (98-107); Creatinine, Serum 0.72 mg/dL (0.55-1.02); EST Glomerular Filtration Rate 89 mL/min (>60); Est Glom Filt Rate - Afr Amer 107 mL/min (>60); Estimated Creatinine Clearance 76.24 ml/min; Glucose 109 mg/dL (74-106); Potassium 3.7 mmol/L (3.5-5.1); Sodium Level 138 mmol/L (136-145)
[2023-07-29 07:39] LABS: Erythrocyte Sedimentation Rate 57 mm/hr (0-30)
--- NOTE | 2023-07-29 08:07 | ECHOCS_ITS ---
Reason For Study: DYSPNEA/SOB Procedure This was a 2D Doppler, Color Flow transthoracic echocardiogram. The study was technically difficult. Due to body habitus (491#). Contrast injection was performed. Exam performed portable in patient room. Left Ventricle Normal LV size. The estimated ejection fraction is 60 %. No evidence for diastolic dysfunction. No regional wall motion abnormalities noted. Right Ventricle Normal RV size. Normal systolic function. Atria Normal left atrium. Normal right atrium. No doppler evidence for ASD. Mitral Valve There is no mitral valve stenosis. No mitral valve insufficiency. Tricuspid Valve There is no tricuspid stenosis. Unable to estimate RV systolic pressure due to inadequate jet, pulmonary artery pressure probably normal. Aortic Valve Trisinus/trileaflet aortic valve. There is no aortic stenosis. No aortic valve insufficiency. Pulmonic Valve There is no pulmonic valvular stenosis. No pulmonic valve insufficiency. Great Vessels Normal aortic root. Pericardium/Pleural No pericardial effusion. Medication Diluted definity 5.0ml given slow IV push to enhance endocardial definition. MMode/2D Measurements & Calculations LVIDd: 6.2 cm IVSd: 1.2 cm Ao root diam: 3.2 cm LVIDs: 3.9 cm LVPWd: 1.1 cm FS: 37.5 % LAV(MOD-bp): 87.4 ml LVAd ap4: 41.3 cm2 LVAd ap2: 38.9 cm2 LAV(MOD-bp) Indexed: 30.5 ml/m2 LVLd ap4: 9.3 cm LVLd ap2: 9.8 cm LAV(MOD-sp2): 87.8 ml EDV(MOD-sp4): 155.5 ml EDV(MOD-sp2): 127.2 ml LAV(MOD-sp4): 75.4 ml EDV(sp4-el): 156.1 ml EDV(sp2-el): 131.4 ml LVAs ap4: 16.8 cm2 LVAs ap2: 22.9 cm2 LVLs ap4: 6.6 cm LVLs ap2: 8.6 cm ESV(MOD-sp4): 36.4 ml ESV(MOD-sp2): 52.7 ml ESV(sp4-el): 36.2 ml ESV(sp2-el): 51.8 ml EF(MOD-sp4): 76.6 % EF(MOD-sp2): 58.6 % EF(sp4-el): 76.8 % SV(MOD-sp4): 119.1 ml SV(MOD-sp2): 74.5 ml SV(sp4-el): 119.9 ml LA A4 area: 24.3 cm2 LA dimension(2D): 5.0 cm RA A4 area: 16.1 cm2 Time Measurements MV dec time: 0.23 sec Doppler Measurements & Calculations MV E max oj: 133.2 cm/sec Lat Peak E' Oj: 10.0 cm/sec Med Peak E' Oj: 7.6 cm/sec MV A max oj: 87.4 cm/sec E/E' lat: 13.3 E/E' med: 17.6 MV E/A: 1.5 MV V2 max: 136.2 cm/sec Ao V2 max: 143.3 cm/sec MV max P.4 mmHg MV dec slope: 586.6 cm/sec2 Ao max P.2 mmHg MV V2 mean: 66.5 cm/sec Ao V2 mean: 106.5 cm/sec MV mean P.3 mmHg Ao mean P.8 mmHg MV V2 VTI: 37.5 cm Ao V2 VTI: 34.4 cm AV (velocity ratio): 0.93 LV V1 max: 126.4 cm/sec PA V2 max: 78.9 cm/sec LV V1 max P.4 mmHg PA V2 mean: 54.5 cm/sec LV V1 mean P.7 mmHg LV V1 mean: 92.4 cm/sec LV V1 VTI: 32.0 cm ECHO/Echo Complete W/ Contrast Interpretation Summary The estimated ejection fraction is 60 %. No evidence for diastolic dysfunction. Ordering Physician: Betty Calvin Referring Physician: Helena Crews Performed By: Meliza Avila, YOLANDACS, RVT
--- NOTE | 2023-07-29 08:08 | PN.HOSP_ITS ---
Reason for Visit Reason for Visit: Diagnoses Obesity, unspecified (07/25/23) Lymphedema, not elsewhere classified (07/25/23) Cellulitis, unspecified (07/25/23) Hyperglycemia, unspecified (07/25/23) Other specified health status (07/25/23) Subjective Subjective Said better last night, still having the same amount of pain and swelling in the 1 area above her left knee but right leg feels much better Objective Data Objective Data Vital Signs: Vital Signs Temp Pulse Resp BP Pulse Ox O2 Del Method 97.9 F 72 18 123/68 H 96 CPAP 07/29/23 06:12 07/29/23 06:12 07/29/23 06:12 07/29/23 06:12 07/29/23 06:12 07/29/23 06:12 Oxygen Delivery Method CPAP Weight: 223.6 kg Body Mass Index (BMI) 82.1 Intake & Output: Intake and Output for Last 24 Hours 07/27/23 07/28/23 07/29/23 23:59 23:59 23:59 Intake Total 2430 / 2630 350 / 350 Balance 2430 / 2630 350 / 350 Lab / Micro Data 07/29/23 06:20 07/29/23 06:20 Labs: Laboratory Results - last 24 hr 07/28/23 06:15: B-Natriuretic Peptide 232.8 H 07/29/23 06:20: WBC 5.3, RBC 3.85 L, Hgb 10.5 L, Hct 33.8 L, MCV 87.8, MCH 27.3, MCHC 31.1 L, RDW Std Deviation 48.2 H, RDW Coeff of Rani 14.9 H, Plt Count 180, MPV 9.8, Immature Gran % (Auto) 0.900, Neut % (Auto) 69.9, Lymph % (Auto) 17.9 L , [place] % (Auto) 10.9 H, Eos % (Auto) 0.2, Baso % (Auto) 0.2, Absolute Neuts (auto) 3.7, Absolute Lymphs (auto) 0.95, Nucleated RBC % 0, ESR 57 H, Sodium 138, Potassium 3.7, Chloride 106, Carbon Dioxide 27.0, Anion Gap 5, BUN 10, Creatinine 0.72, Estim Creat Clear Calc 76.24, Est GFR (MDRD) Af Amer 107, Est GFR (MDRD) Non-Af 89, BUN/Creatinine Ratio 13.8, Glucose 109 H, Calcium 8.7, C- React Prot Ext Range 164.00 H Micro: Microbiology 07/25/23 16:14 Blood Culture (Wb) - Anticubital Left Blood Culture - Preliminary No growth in 5 days. 07/25/23 16:07 Blood Culture (Wb) - Anticubital Right Blood Culture - Preliminary No growth in 5 days. Radiography Diagnostic Testing: Radiology Impression Chest X-Ray 07/28/23 15:37 IMPRESSION: Cardiomegaly and mild pulmonary vascular congestion. Electronically Signed: Yamile Cantu MD at 16:28 EDT Reading Location ID and State: [facility] / [place] , Service support , Physical Exam Narrative General: Alert, oriented, no apparent distress HEENT: Atraumatic, normocephalic Eyes: Anicteric, normal conjunctiva, extraocular movements grossly intact Neck: Supple Respiratory: Clear to auscultation bilaterally, normal respiratory effort Cardiovascular: Regular rate and rhythm GI: Soft, nontender, nondistended Extremities: As below Musculoskeletal: Moving all extremities Neuro: No overt focal neurological deficits Skin: Primarily localized erythema on the left leg above the knee which is unchanged from yesterday, rest of legs are improving from erythema perspective, some chronic changes bilaterally Psych: Cooperative Assessment & Plan Assessment/Plan (1) Failure of outpatient treatment: (2) Cellulitis: (3) Hyperglycemia: PLAN: Plan Bilateral lower extremity cellulitis -Started on the right and has to the left -Mild systemic symptoms -Has had 2 rounds of outpatient Keflex and 2 rounds of outpatient doxycycline -Agree with Vanco and Zosyn for now -No wounds to culture -Elevate lower extremities -We will consult wound nurse to help with wrapping lower extremities -Had echocardiogram done on 06/19/2021 at [facility] that showed normal EF and no significant valvular disease however they were unable to estimate right ventricular systolic pressure -ESR and CRP are pending -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 Did have a lower extremity Doppler 07/08/2023 on the right side which demonstrated no right lower extremity DVT. Patient has fever of 100.8 and feels cold, blood culture was unable to be sent yesterday, will repeat cultures and will repeat labs as well to verify patient is not worsening. Patient does not think her legs feel worse she just does not think they feel much better yet, no pain when resting, legs marked. Continue abx at this time -07/26: CRP stabilized and ESR trending down, no wound culture however blood cultures pending, continue to monitor improvement, BP variable but MAP adequate, will give small bolus of fluids and hold lisinopril, additionally given legs have improved significantly but has 1 localized area that is much slower to respond will obtain ultrasound to assess for area that may need drained -07/27: Blood cultures no growth to date, most patient cellulitis improved on the broad-spectrum antibiotics however she still has the localized cellulitic area on left thigh without significant improvement, CRP still remains significantly elevated. Ultrasound without drainable abscess. Will consult ID for additional input given patient has area that is not responding to antibiotics as the rest of leg did -07/28: Patient switched to Rocephin, may need amoxicillin prophylaxis on a longer-term basis, ID continue to follow, patient still having significant enough pain she is not yet ready for discharge -07/29: ESR and CRP both increased and patient still with erythema and pain, she is on Rocephin and ID is following, appreciate ID recommendations, cultures no growth to date Shortness of breath -Patient was complaining of having difficulty taking a deep breath and feeling more short of breath on exertion, she has gotten fluids with her antibiotics and fluids in general given her infection since admission, x-ray showed cardiomegaly and some pulmonary congestion and BNP was 232 -Patient given 20 IV Lasix -We will obtain echocardiogram Hyperglycemia -Mild -Check hemoglobin A1c with infection -No history of diabetes -07/25: Hemoglobin A1c 5.9, mildly elevated, would benefit from weight loss and lifestyle changes MIGUEL/obesity hypoventilation syndrome -Continue home NIPPV -Follows with Dr. Johnson History of iron deficiency anemia -Hemoglobin stable -Continue home iron supplementation Hypertension -Continue home lisinopril GERD -PPI Depression -Continue home Effexor Osteoarthritis -Scheduled Tylenol Super morbid obesity -BMI 78.5 -Recommend weight loss -Complicates treatment, prognosis, outcomes DVT prophylaxis -Lovenox subcu 40 twice daily CODE STATUS -Full code as per discussion on admission Time spent in the patient's overall evaluation,decision-making process, review of diagnostic data, adjustment of management, discussion with other providers, nursing nursing and ancillary staff involved in patient's care documentation, 36 minutes Charges/Coding Visit Charges Inpatient E&M: 21274 Subs Hosp L2
[2023-07-29 09:06] VITALS: BP 108/59; PULSE 67; RESP 18; TEMP 36.7; O2SAT 92
[2023-07-29] MEDS: Fluticasone 0.05% 1 SPRAY NASAL.SRY NASAL ×2 (09:16→21:46)
[2023-07-29] MEDS: Aspirin E.C. 81 MG Tablet PO (09:16)
[2023-07-29] MEDS: Nystatin Powder 15gm Bottle 1 APPLIC TOPICAL ×2 (09:16→21:47)
[2023-07-29] MEDS: Venlafaxine XR 75 MG Capsule 225 MG PO (09:16)
[2023-07-29] MEDS: Magnesium Chloride 64 MG Delay Rel.Tablet 128 MG PO (09:17)
[2023-07-29] MEDS: Enoxaparin 40 MG/0.4 ML Syringe SC ×2 (09:17→21:47)
[2023-07-29] MEDS: Pantoprazole Sodium 40 MG Tablet PO (09:17)
[2023-07-29] MEDS: 0.9% Saline Lock 10 ML Syringe IV (09:50)
[2023-07-29] MEDS: Acetaminophen 325 MG Tablet 650 MG PO (10:44)
[2023-07-29] MEDS: Ferrous Sulfate 325 MG Tablet PO (11:45)
[2023-07-29] MEDS: Ascorbic Acid 500 MG Tablet PO (11:45)
[2023-07-29] MEDS: oxyCODONE 5 MG Tablet PO (12:32)
[2023-07-29 14:15] VITALS: BP 95/53; PULSE 70; RESP 18; TEMP 36.8; O2SAT 94
--- NOTE | 2023-07-29 16:05 | PN.ID_ITS ---
Physical Exam Narrative Some pain in legs, no fever Const alert and no apparent distress General Appearance: cooperative Resp normal air movement and clear to auscultation bilaterally Cardio regular rate and regular rhythm GI soft to palpation, non-tender and non-distended Skin Skin Narrative: BLE less red ID ID: Route of nutrition/ use of supplements: [] Nutritional Intake: [] IV Site: [] Galeano Catheter: [] Assessment & Plan Assessment/Plan (1) Lymphedema associated with obesity: (2) Cellulitis: PLAN: recurrent RLE cellulitis, now developed LLE cellulitis on outpt doxy/keflex. Improving here on vanc/zosyn. 07/27 narrowed ceftriaxone for nonpurulent cellulitis, will need to consider custodial amox as prophylaxis and referral to edema clinic for prevention. Added antifungal powder to skin folds. Both legs slowly improving, less red. Will follow
[2023-07-29 20:56] VITALS: BP 143/94; PULSE 95; RESP 16; TEMP 36.2; O2SAT 99
[2023-07-30] MEDS: Acetaminophen 325 MG Tablet 650 MG PO ×3 (02:03→16:39)
[2023-07-30 02:06] VITALS: BP 100/51; PULSE 71; RESP 18; TEMP 36.6; O2SAT 95
[2023-07-30 05:47] VITALS: BMI 82.0
[2023-07-30 06:14] LABS: Absolute Lymphocyte Count 1.23 X10^3/uL (0.83-4.51); Absolute Neutrophil Count 3.9 X10^3/uL (2.0-7.7); Basophil# 0.02 X10^3/uL; Basophil% 0.3 % (0-1); Eosinophil# 0.01 X10^3/uL; Eosinophils% 0.2 % (0-5); Hematocrit 36.1 % (37-47); Lymphocyte # 1.23 X10^3/ul (0.83-4.51); Lymphocyte % 20.6 % (19-41); Mean Corp Hgb Conc 30.5 g/dL (32-36); Mean Corpuscular Hgb 27.2 pg (27.0-32.0); Mean Corpuscular Volume 89.4 fL (81-99); Mean Platelet Vol. 9.4 fl (6.2-12.0); Monocyte# 0.67 X10^3/uL; Monocyte% 11.2 % (0-10); NRBC Flagged by Analyzer 0 % (0-5); Neutrophil # 3.93 X10^3/uL (2.7-7.7); Platelet Count 184 K/mm3 (150-450); RBC Distribution Width SD 49.1 fl (35.1-43.9); Red Blood Count 4.04 M/mm3 (4.2-5.4)
[2023-07-30 06:49] LABS: Anion Gap 3 (5-15); BUN 13 mg/dL (7-18); BUN/Creat Ratio 16.4 RATIO (10-20); Calcium,Total 8.9 mg/dL (8.5-10.1); Chloride 107 mmol/L (98-107); Creatinine, Serum 0.79 mg/dL (0.55-1.02); EST Glomerular Filtration Rate 80 mL/min (>60); Est Glom Filt Rate - Afr Amer 97 mL/min (>60); Estimated Creatinine Clearance 69.48 ml/min; Glucose 107 mg/dL (74-106); Potassium 4.2 mmol/L (3.5-5.1); Sodium Level 139 mmol/L (136-145)
--- NOTE | 2023-07-30 08:18 | PCM.PN.HOSP ---
Reason for Visit Reason for Visit: Diagnoses Obesity, unspecified (07/25/23) Lymphedema, not elsewhere classified (07/25/23) Cellulitis, unspecified (07/25/23) Hyperglycemia, unspecified (07/25/23) Other specified health status (07/25/23) Subjective Subjective Patient feeling better but extremely anxious about potentially going home, discussed risks and benefits and ultimately plan to DC home tomorrow after a.m. antibiotics, patient was agreeable Objective Data Objective Data Vital Signs: Vital Signs Temp Pulse Resp BP Pulse Ox O2 Del Method 97.8 F 71 18 100/51 L 95 Room Air 07/30/23 02:06 07/30/23 02:06 07/30/23 02:06 07/30/23 02:06 07/30/23 02:06 07/30/23 02:25 Oxygen Delivery Method Room Air Weight: 223.4 kg Body Mass Index (BMI) 82.0 Intake & Output: Intake and Output for Last 24 Hours 07/28/23 07/29/23 07/30/23 23:59 23:59 23:59 Intake Total 350 / 350 50 / 50 Balance 350 / 350 50 / 50 Lab / Micro Data 07/30/23 06:05 07/30/23 06:05 Labs: Laboratory Results - last 24 hr 07/30/23 06:05: WBC 6.0, RBC 4.04 L, Hgb 11.0 L, Hct 36.1 L, MCV 89.4, MCH 27.2, MCHC 30.5 L, RDW Std Deviation 49.1 H, RDW Coeff of Rani 15.0 H, Plt Count 184, MPV 9.4, Immature Gran % (Auto) 1.700 H, Neut % (Auto) 66.0, Lymph % (Auto) 20.6, [place] % (Auto) 11.2 H, Eos % (Auto) 0.2, Baso % (Auto) 0.3, Absolute Neuts (auto) 3.9, Absolute Lymphs (auto) 1.23, Nucleated RBC % 0, Sodium 139, Potassium 4.2, Chloride 107, Carbon Dioxide 29.0, Anion Gap 3 L, BUN 13, Creatinine 0.79, Estim Creat Clear Calc 69.48, Est GFR (MDRD) Af Amer 97, Est GFR (MDRD) Non-Af 80, BUN/Creatinine Ratio 16.4, Glucose 107 H, Calcium 8.9, C-React Prot Ext Range 120.00 H Micro: Microbiology 07/25/23 16:14 Blood Culture (Wb) - Anticubital Left Blood Culture - Preliminary No growth in 5 days. 07/25/23 16:07 Blood Culture (Wb) - Anticubital Right Blood Culture - Preliminary No growth in 5 days. Radiography Diagnostic Testing: Radiology Impression Echocardiogram 07/29/23 08:07 Interpretation Summary The estimated ejection fraction is 60 %. No evidence for diastolic dysfunction. Ordering Physician: Betty Calvin Referring Physician: Helena Crews Performed By: Meliza Avila, ISABELA, RVT Physical Exam Narrative General: Alert, oriented, no apparent distress HEENT: Atraumatic, normocephalic Eyes: Anicteric, normal conjunctiva, extraocular movements grossly intact Neck: Supple Respiratory: Clear to auscultation bilaterally, normal respiratory effort Cardiovascular: Regular rate and rhythm GI: Soft, nontender, nondistended Extremities: As below Musculoskeletal: Moving all extremities Neuro: No overt focal neurological deficits Skin: Primarily localized erythema on the left leg above the knee which is unchanged from yesterday, rest of legs are improving from erythema perspective, some chronic changes bilaterally, erythema receding from marked edges Psych: Cooperative Assessment & Plan Assessment/Plan (1) Failure of outpatient treatment: (2) Cellulitis: (3) Hyperglycemia: PLAN: Plan Bilateral lower extremity cellulitis -Started on the right and has to the left -Mild systemic symptoms -Has had 2 rounds of outpatient Keflex and 2 rounds of outpatient doxycycline -Agree with Angelica and Ryan for now -No wounds to culture -Elevate lower extremities -We will consult wound nurse to help with wrapping lower extremities -Had echocardiogram done on 06/19/2021 at [facility] that showed normal EF and no significant valvular disease however they were unable to estimate right ventricular systolic pressure -ESR and CRP are pending -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 Did have a lower extremity Doppler 07/08/2023 on the right side which demonstrated no right lower extremity DVT. Patient has fever of 100.8 and feels cold, blood culture was unable to be sent yesterday, will repeat cultures and will repeat labs as well to verify patient is not worsening. Patient does not think her legs feel worse she just does not think they feel much better yet, no pain when resting, legs marked. Continue abx at this time -07/26: CRP stabilized and ESR trending down, no wound culture however blood cultures pending, continue to monitor improvement, BP variable but MAP adequate, will give small bolus of fluids and hold lisinopril, additionally given legs have improved significantly but has 1 localized area that is much slower to respond will obtain ultrasound to assess for area that may need drained -07/27: Blood cultures no growth to date, most patient cellulitis improved on the broad-spectrum antibiotics however she still has the localized cellulitic area on left thigh without significant improvement, CRP still remains significantly elevated. Ultrasound without drainable abscess. Will consult ID for additional input given patient has area that is not responding to antibiotics as the rest of leg did -07/28: Patient switched to Rocephin, may need amoxicillin prophylaxis on a longer-term basis, ID continue to follow, patient still having significant enough pain she is not yet ready for discharge -07/29: ESR and CRP both increased and patient still with erythema and pain, she is on Rocephin and ID is following, appreciate ID recommendations, cultures no growth to date -07/30: CRP downtrending with continued Rocephin use, ID following, plan will be home tomorrow with 10 days of Omnicef and ID follow-up in 2 weeks and follow-up with PCP Shortness of breath -Patient was complaining of having difficulty taking a deep breath and feeling more short of breath on exertion, she has gotten fluids with her antibiotics and fluids in general given her infection since admission, x-ray showed cardiomegaly and some pulmonary congestion and BNP was 232 -Patient given 20 IV Lasix -We will obtain echocardiogram -07/30: Echocardiogram normal, suspect shortness of breath secondary to atelectasis and OHS, continue BiPAP nightly, continue to encourage ambulation Hyperglycemia -Mild -Check hemoglobin A1c with infection -No history of diabetes -07/25: Hemoglobin A1c 5.9, mildly elevated, would benefit from weight loss and lifestyle changes MIGUEL/obesity hypoventilation syndrome -Continue home NIPPV -Follows with Dr. Johnson History of iron deficiency anemia -Hemoglobin stable -Continue home iron supplementation Hypertension -Continue home lisinopril GERD -PPI Depression -Continue home Effexor Osteoarthritis -Scheduled Tylenol Super morbid obesity -BMI 78.5 -Recommend weight loss -Complicates treatment, prognosis, outcomes DVT prophylaxis -Lovenox subcu 40 twice daily CODE STATUS -Full code as per discussion on admission Time spent in the patient's overall evaluation,decision-making process, review of diagnostic data, adjustment of management, discussion with other providers, nursing nursing and ancillary staff involved in patient's care documentation, 36 minutes Charges/Coding Visit Charges Inpatient E&M: 60240 Subs Hosp L2
[2023-07-30 09:11] VITALS: BP 143/82; PULSE 61; RESP 16; TEMP 36.4; O2SAT 97
[2023-07-30] MEDS: Venlafaxine XR 75 MG Capsule 225 MG PO (09:14)
[2023-07-30] MEDS: Fluticasone 0.05% 1 SPRAY NASAL.SRY NASAL ×2 (09:14→21:30)
[2023-07-30] MEDS: Enoxaparin 40 MG/0.4 ML Syringe SC ×2 (09:14→21:31)
[2023-07-30] MEDS: Pantoprazole Sodium 40 MG Tablet PO (09:15)
[2023-07-30] MEDS: Magnesium Chloride 64 MG Delay Rel.Tablet 128 MG PO (09:15)
[2023-07-30] MEDS: Nystatin Powder 15gm Bottle 1 APPLIC TOPICAL ×2 (09:15→21:30)
[2023-07-30] MEDS: Aspirin E.C. 81 MG Tablet PO (09:15)
--- NOTE | 2023-07-30 10:00 | WOUNDNOTE ---
In to reassess bilateral lower legs. the redness to the RLE is nearly resolved. there is still some redness noted to the upper calf, but has receded from the skin markings. Discussed again the importance of the lymphedema pumps. also discussed the importance of keeping the leg folds clean and dry. pt very appreciative of care.
--- NOTE | 2023-07-30 10:16 | PN.ID_ITS ---
Physical Exam Narrative Leg still sore, controlled with tylenol for the most part, no fever Const alert and no apparent distress General Appearance: cooperative Resp normal air movement and clear to auscultation bilaterally Cardio regular rate and regular rhythm Skin Skin Narrative: Slowly fading LLE redness ID ID: Route of nutrition/ use of supplements: [] Nutritional Intake: [] IV Site: [] Galeano Catheter: [] Assessment & Plan Assessment/Plan (1) Lymphedema associated with obesity: (2) Cellulitis: PLAN: recurrent RLE cellulitis, now developed LLE cellulitis on outpt doxy/keflex. Improving here on vanc/zosyn. 07/27 narrowed ceftriaxone for nonpurulent cellulitis, will need to consider retirement amox as prophylaxis and referral to edema clinic for prevention. Added antifungal powder to skin folds. Both legs slowly improving, less red. Ok for home with 10 days omnicef 300mg bid, ID followup in 2 weeks. Will follow
[2023-07-30 11:07] VITALS: O2SAT 94
--- NOTE | 2023-07-30 11:11 | CASEMGMT ---
Social Work SW met with pt and assisted in completing Living Will. Original given to pt and copy placed on pt chart. Pt has a HCPOA in the EMR naming her sister Maggie Soto. [place]
[2023-07-30] MEDS: Ascorbic Acid 500 MG Tablet PO (14:07)
[2023-07-30 14:08] VITALS: BP 139/85; PULSE 76; RESP 16; TEMP 36.9; O2SAT 93
[2023-07-30] MEDS: Ferrous Sulfate 325 MG Tablet PO (14:08)
[2023-07-30 14:12] LABS: Erythrocyte Sedimentation Rate 55 mm/hr (0-30)
[2023-07-30 19:47] VITALS: BP 133/94; PULSE 87; RESP 18; TEMP 36.6; O2SAT 95
[2023-07-31 03:14] VITALS: BP 138/85; PULSE 67; RESP 18; TEMP 36.3; O2SAT 93
[2023-07-31 04:01] VITALS: BMI 82.0
[2023-07-31] MEDS: 0.9% Saline Lock 10 ML Syringe IV (06:02)
[2023-07-31 07:10] LABS: Absolute Lymphocyte Count 1.24 X10^3/uL (0.83-4.51); Absolute Neutrophil Count 3.9 X10^3/uL (2.0-7.7); Basophil# 0.01 X10^3/uL; Basophil% 0.2 % (0-1); Eosinophil# 0.01 X10^3/uL; Eosinophils% 0.2 % (0-5); Hematocrit 35.9 % (37-47); Hemoglobin 11.1 g/dL (12.0-15.0); Lymphocyte # 1.24 X10^3/ul (0.83-4.51); Lymphocyte % 21.3 % (19-41); Mean Corp Hgb Conc 30.9 g/dL (32-36); Mean Corpuscular Hgb 26.9 pg (27.0-32.0); Mean Corpuscular Volume 87.1 fL (81-99); Mean Platelet Vol. 9.3 fl (6.2-12.0); Monocyte# 0.54 X10^3/uL; Monocyte% 9.3 % (0-10); NRBC Flagged by Analyzer 0 % (0-5); Neutrophil # 3.91 X10^3/uL (2.7-7.7); Neutrophil % 66.9 % (47-70); Platelet Count 208 K/mm3 (150-450); RBC Distribution Width CV 14.9 % (11.6-14.6); RBC Distribution Width SD 47.3 fl (35.1-43.9); Red Blood Count 4.12 M/mm3 (4.2-5.4); White Blood Count 5.8 K/mm3 (4.4-11.0)
--- NOTE | 2023-07-31 07:16 | DCINST_ITS ---
Discharge Instructions Diet Discharge Diet: 1999 Calorie Control Diet Activity Discharge Activity: - (Legs elevated when possible) Return to work on:: 08/05/23 (Subject to change based on progress and PCP assessmnet) Follow Up Care Test Results: Test results from this visit will be discussed in further detail at your follow- up appointment, if applicable. Discharge Plan Admission Admit Date/Time: 07/25/23 00:36 Primary Reason for Your Visit: Lower extremity cellulitis Attending Provider: Betty Calvin Primary Care Provider: Helena Crews Consulting Providers: Adrianna Mejia; Wander Garcia Instructions Patient Instructions: Cellulitis, Cellulitis Dc Additional Instructions / Restrictions: DISCHARGE INSTRUCTIONS PLEASE READ *Please take this with you to your next doctors appointment* -You will be discharged on another 10 days of antibiotics, cefdinir/Omnicef 300 mg twice daily. This has been sent to your preferred pharmacy on file the [facility] in [place] per our discussion -Please follow-up with Dr. Garcia with infectious disease upon discharge. Please call their office to schedule hospital follow-up appointment upon discharge. -Please elevate your legs as possible -Would benefit from wearing a strap for lymphedema boots if possible -Additionally you are noted to have prediabetes, would recommend it and lifestyle modifications, your primary care physician may consider putting on a medication like metformin but will defer at this time to your primary care physician -Please call your primary care provider's office upon discharge to schedule a hospital follow up within 1 week. -For any concerning signs or symptoms please call 911 or proceed to the nearest emergency department Discharge Orders/Prescriptions Prescriptions: New cefdinir 300 mg capsule 300 mg PO Q12H 10 Days Qty: 20 0RF nystatin [Nyamyc] 100,000 unit/gram Powder 1 applic topical BID 30 Days Qty: 60 0RF Protocol: *Topical Application Instructions APPLICATION INSTRUCTIONS: apply to skin folds, particularly BLE Continued acetaminophen 500 mg capsule 1,000 mg PO Q6H PRN (Reason: Pain) aspirin [Adult Low Dose Aspirin] 81 mg tablet,delayed release (DR/EC) 81 mg PO DAILY ascorbic acid (vitamin C) 500 mg Tablet 500 mg PO 1200 Qty: 0 0RF Rx Instructions: take this medication with the ferrous sulfate with food ferrous sulfate [FeroSul] 325 mg (65 mg iron) Tablet 325 mg PO DAILY@1200 Qty: 30 0RF magnesium oxide 400 mg magnesium capsule 400 mg PO DAILY Qty: 30 0RF venlafaxine [Effexor XR] 75 mg capsule,extended release 24hr 225 mg PO DAILY Qty: 90 0RF Rx Instructions: take 3 capsules every AM omeprazole 40 mg capsule,delayed release(DR/EC) 40 mg PO DAILY Patient Comments: TAKE 1 CAPSULE BY MOUTH ONCE DAILY lisinopril 10 mg tablet 10 mg PO DAILY Patient Comments: TAKE 1 TABLET BY MOUTH ONCE DAILY pediatric multivitamin [multivitamin] .Route doxycycline hyclate 100 mg capsule 100 mg PO BID Patient Comments: TAKE 1 CAPSULE BY MOUTH TWICE DAILY cholestyramine (with sugar) 4 gram powder Patient Comments: TAKE DIRECTED ON CONTAINER Acidophilus Capsule 10 mg PO DAILY Referrals / Follow Up: Wander Garcia MD [Med Staff - Active Staff] - Within 2 Weeks ( -Please follow-up with infectious disease upon discharge. Please call their office to schedule hospital follow-up appointment upon discharge.) Helena Crews PA [Primary Care Provider] - In 1 Day Disposition Disposition (needs filled in before D/C Order can be placed): Home, Self Care
--- NOTE | 2023-07-31 07:22 | PCM.DC.SUM ---
Providers Date of Admission: 07/25/23 Date of Discharge: 07/31/23 Primary Care Physician: VJ Maloney Consultations 07/25/23 02:40 Consult: Onc/Wound/checker and packer Routine Comment: 07/27/23 11:53 Consult: Infectious Disease Routine Consulting Provider: Wander Garcia Reason for Consult: persistent cellulitis above knee despite broad spectrum abx, high crp EMERGENT Consult: No MD Notified: Yes Date Notified: 07/27/23 Time Notified: 12:34 Method of Notification: Text Reason For Visit: CELLULITIS Diagnosis Discharge Diagnosis (1) Failure of outpatient treatment: Status: Acute Code(s): Z78.9 - Other specified health status (2) Cellulitis: Status: Acute Code(s): L03.90 - Cellulitis, unspecified (3) Hyperglycemia: Status: Acute Code(s): R73.9 - Hyperglycemia, unspecified Plan #Bilateral lower extremity cellulitis #Prediabetes #MIGUEL/obesity hypoventilation syndrome #hx of iron deficiency anemia #lymphedema #Hypertension #GERD #Depression #Osteoarthritis #Super morbid obesity Medications at Discharge Home Medications acetaminophen 500 mg capsule 1,000 mg PO Q6H PRN Pain 07/11/21 aspirin 81 mg tablet,delayed release (Adult Low Dose Aspirin) 81 mg PO DAILY 07/11/21 ascorbic acid (vitamin C) 500 mg tablet 500 mg PO 1200 #0 tabs 08/01/21 ferrous sulfate 325 mg (65 mg iron) tablet (FeroSul) 325 mg PO DAILY@1200 #30 tabs 08/01/21 magnesium oxide 400 mg PO DAILY #30 caps 08/01/21 venlafaxine 75 mg capsule,extended release 24 hr (Effexor XR) 225 mg (3 x 75 mg) PO DAILY #90 caps 09/03/21 Lactobacillus acidophilus (Acidophilus capsule) 10 mg PO DAILY 07/24/23 cholestyramine (with sugar) 4 gram oral powder ea 07/24/23 doxycycline hyclate 100 mg capsule 100 mg PO BID 07/24/23 lisinopril 10 mg tablet 10 mg PO DAILY 07/24/23 omeprazole 40 mg capsule,delayed release 40 mg PO DAILY 07/24/23 pediatric multivitamin .Route 07/24/23 cefdinir 300 mg capsule 300 mg PO Q12H 10 days #20 caps 07/31/23 nystatin 100,000 unit/gram topical powder ([facility]) 1 applic topical BID 30 days #60 grams 07/31/23 Hospital Course Summary of Care Provided Minutes Spent on Discharge: 40 Hospital Course: 53-year-old female history of lymphedema, GERD, osteoarthritis, obesity, recurrent lower extremity cellulitis presented to [facility] 07/25/2023 with bilateral lower extremity cellulitis but left lower extremity with new cellulitis that is rapidly progressive. For her right lower extremity she has been off and on Keflex and doxycycline multiple times with initial improvement and ultimately returning to baseline, the day leading up to admission she developed a spot near her left knee that then rapidly progressed prompting admission to the hospital especially given her multiple failures of outpatient antibiotics. She was started on vancomycin and Zosyn and blood cultures obtained, she did have elevated ESR and CRP and was febrile, blood cultures were negative and due to very slow improvement/stalled improvement of left mid extremity (other cellulitis improved significantly and quickly) infectious disease was consulted and they switched antibiotics/narrowed to Rocephin and ultimately will decide on amoxicillin prophylaxis longer-term. Patient continued to improve and on day of discharge reports feeling better than she was, still has some aspect of cellulitis but is receding from marked margins and inflammatory markers improving. Patient comfortable discharge home and follow-up with PCP and infectious disease, will DC on 10 days of Omnicef. Of note during her hospitalization she did have an aspect of shortness of breath, she had chest x-ray which. Slightly overloaded and a mildly elevated BNP and was given a dose of Lasix and incentive spirometry, echo obtained to rule out any underlying cardiac etiology and this was normal, suspect given the large amount of fluid she got on presentation that she was overloaded mildly from this in conjunction with MIGUEL/OHS and breathing improved. Physical Exam Narrative General: Alert, oriented, no apparent distress HEENT: Atraumatic, normocephalic Eyes: Anicteric, normal conjunctiva, extraocular movements grossly intact Neck: Supple Respiratory: Clear to auscultation bilaterally, normal respiratory effort Cardiovascular: Regular rate and rhythm GI: Soft, nontender, nondistended Extremities: As below Musculoskeletal: Moving all extremities Neuro: No overt focal neurological deficits Skin: Primarily localized erythema on the left leg above the knee which is improving, rest of legs are improved with some chronic changes residual Psych: Cooperative Weight / BMI Weight Weight: 223.4 kg Body Mass Index (BMI) 82.0 ABG / Lab / Microbiology Data 07/31/23 06:55 07/31/23 06:55 Laboratory: Laboratory Results - last 24 hr 07/30/23 06:05: ESR 55 H 07/31/23 06:55: WBC 5.8, RBC 4.12 L, Hgb 11.1 L, Hct 35.9 L, MCV 87.1, MCH 26.9 L, MCHC 30.9 L, RDW Std Deviation 47.3 H, RDW Coeff of Rani 14.9 H, Plt Count 208, MPV 9.3, Immature Gran % (Auto) 2.100 H, Neut % (Auto) 66.9, Lymph % (Auto) 21.3, [place] % (Auto) 9.3, Eos % (Auto) 0.2, Baso % (Auto) 0.2, Absolute Neuts (auto) 3.9, Absolute Lymphs (auto) 1.24, Nucleated RBC % 0 Microbiology: Microbiology 07/25/23 16:14 Blood Culture (Wb) - Anticubital Left Blood Culture - Preliminary No growth in 5 days. 07/25/23 16:07 Blood Culture (Wb) - Anticubital Right Blood Culture - Preliminary No growth in 5 days. D/C Instructions Discharge Diet: 2000 Calorie Control Diet Return to work on: 08/05/23 (Subject to change based on progress and PCP assessmnet) Meaningful Use Info Meaningful Use Diagnoses (Choose all that apply): None applicable Discharge Plan Admission Admit Date/Time: 07/25/23 00:36 Primary Reason for Your Visit: Lower extremity cellulitis Attending Provider: Betty Calvin Primary Care Provider: Helena Crews Consulting Providers: Adrianna Mejia; Wander Garcia Instructions Patient Instructions: Cellulitis, Cellulitis Dc Additional Instructions / Restrictions: DISCHARGE INSTRUCTIONS PLEASE READ *Please take this with you to your next doctors appointment* -You will be discharged on another 10 days of antibiotics, cefdinir/Omnicef 300 mg twice daily. This has been sent to your preferred pharmacy on file the [facility] in [place] per our discussion -Please follow-up with Dr. Garcia with infectious disease upon discharge. Please call their office to schedule hospital follow-up appointment upon discharge. -Please elevate your legs as possible -Would benefit from wearing a strap for lymphedema boots if possible -Additionally you are noted to have prediabetes, would recommend it and lifestyle modifications, your primary care physician may consider putting on a medication like metformin but will defer at this time to your primary care physician -Please call your primary care provider's office upon discharge to schedule a hospital follow up within 1 week. -For any concerning signs or symptoms please call 911 or proceed to the nearest emergency department Discharge Orders/Prescriptions Prescriptions: New cefdinir 300 mg capsule 300 mg PO Q12H 10 Days Qty: 20 0RF nystatin [Nyamyc] 100,000 unit/gram Powder 1 applic topical BID 30 Days Qty: 60 0RF Protocol: *Topical Application Instructions APPLICATION INSTRUCTIONS: apply to skin folds, particularly BLE Continued acetaminophen 500 mg capsule 1,000 mg PO Q6H PRN (Reason: Pain) aspirin [Adult Low Dose Aspirin] 81 mg tablet,delayed release (DR/EC) 81 mg PO DAILY ascorbic acid (vitamin C) 500 mg Tablet 500 mg PO 1200 Qty: 0 0RF Rx Instructions: take this medication with the ferrous sulfate with food ferrous sulfate [FeroSul] 325 mg (65 mg iron) Tablet 325 mg PO DAILY@1200 Qty: 30 0RF magnesium oxide 400 mg magnesium capsule 400 mg PO DAILY Qty: 30 0RF venlafaxine [Effexor XR] 75 mg capsule,extended release 24hr 225 mg PO DAILY Qty: 90 0RF Rx Instructions: take 3 capsules every AM omeprazole 40 mg capsule,delayed release(DR/EC) 40 mg PO DAILY Patient Comments: TAKE 1 CAPSULE BY MOUTH ONCE DAILY lisinopril 10 mg tablet 10 mg PO DAILY Patient Comments: TAKE 1 TABLET BY MOUTH ONCE DAILY pediatric multivitamin [multivitamin] .Route doxycycline hyclate 100 mg capsule 100 mg PO BID Patient Comments: TAKE 1 CAPSULE BY MOUTH TWICE DAILY cholestyramine (with sugar) 4 gram powder Patient Comments: TAKE DIRECTED ON CONTAINER Acidophilus Capsule 10 mg PO DAILY Referrals / Follow Up: Wander Garcia MD [Med Staff - Active Staff] - Within 2 Weeks ( -Please follow-up with infectious disease upon discharge. Please call their office to schedule hospital follow-up appointment upon discharge.) Helena Crews PA [Primary Care Provider] - In 1 Day Disposition Disposition (needs filled in before D/C Order can be placed): Home, Self Care Charges/Coding Visit Charges Inpatient E&M: 94985 Disch Hosp >30min
[2023-07-31 07:52] LABS: Anion Gap 5 (5-15); BUN 15 mg/dL (7-18); BUN/Creat Ratio 17.4 RATIO (10-20); Chloride 106 mmol/L (98-107); Creatinine, Serum 0.86 mg/dL (0.55-1.02); EST Glomerular Filtration Rate 73 mL/min (>60); Est Glom Filt Rate - Afr Amer 88 mL/min (>60); Estimated Creatinine Clearance 63.83 ml/min; Glucose 104 mg/dL (74-106); Potassium 4.2 mmol/L (3.5-5.1); Sodium Level 139 mmol/L (136-145)
--- NOTE | 2023-07-31 08:04 | WOUNDNOTE ---
In to reassess bilateral lower legs. redness continue to improve. patient states the left leg is slightly less tender this morning. would recommend continuing with the nystatin powder to folds daily. patient states she plans to use the lymphedema pumps at least daily. encouraged BID if able. pt denies further needs at this time.
[2023-07-31 09:00] VITALS: BP 108/90; PULSE 82; RESP 16; TEMP 36.6; O2SAT 95
[2023-07-31] MEDS: Fluticasone 0.05% 1 SPRAY NASAL.SRY NASAL (09:28)
[2023-07-31] MEDS: Aspirin E.C. 81 MG Tablet PO (09:29)
[2023-07-31] MEDS: Enoxaparin 40 MG/0.4 ML Syringe SC (09:29)
[2023-07-31] MEDS: Pantoprazole Sodium 40 MG Tablet PO (09:30)
[2023-07-31] MEDS: Nystatin Powder 15gm Bottle 1 APPLIC TOPICAL (09:30)
[2023-07-31] MEDS: Magnesium Chloride 64 MG Delay Rel.Tablet 128 MG PO (09:30)
[2023-07-31] MEDS: Venlafaxine XR 75 MG Capsule 225 MG PO (09:30)
--- NOTE | 2023-07-31 10:56 | CASEMGMT ---
MORIS CM into pt room, pt is ready for dc and has a medical appt at 1:30p. Pt denies any homegoing needs or questions at this time.
== END 2023-07-31 11:19 | disposition home or self-care (01) | DRG 603 ==
LOC: ED 07-25 00:14 → MS3 07-25 01:13
PROVIDERS: Admitting Provider Internal Medicine; Emergency Provider Emergency Medicine; PCP Physician Assistant; Visit Provider Internal Medicine
DX: L03.115 Cellulitis of right lower limb (principal); E66.2 Morbid (severe) obesity with alveolar hypoventilation; Z68.45 Body mass index [BMI] 70 or greater, adult; I10 Essential (primary) hypertension; F32.9 Major depressive disorder, single episode, unspecified; M19.90 Unspecified osteoarthritis, unspecified site; K21.9 Gastro-esophageal reflux disease without esophagitis; I89.0 Lymphedema, not elsewhere classified; Z87.891 Personal history of nicotine dependence; L03.116 Cellulitis of left lower limb; R73.03 Prediabetes
CPT/HCPCS: 36415; 71045; 76882; 80048; 80053; 80202; 83036; 83605; 83735; 83880; 84100; 84145; 84443; 85025; 85652; 86140; 87040; 87640; 93306; 94668; 97802; 99284; J7040; J7050; J7120; Q9957; A4216; C8929; J0696; J1940

== ENCOUNTER 2023-08-17 22:18 | Inpatient (IN) | payer BC, SELFPAY ==
[2023-08-17 22:20] VITALS: BP 131/82; PULSE 99; RESP 20; TEMP 37; O2SAT 98
--- NOTE | 2023-08-17 22:38 | EKG12_ITS ---
Test Reason : DYSRHYTHMIA Blood Pressure : / mmHG Vent. Rate : 082 BPM Atrial Rate : 082 BPM P-R Int : 152 ms QRS Dur : 074 ms QT Int : 356 ms P-R-T Axes : 000 062 153 degrees QTc Int : 415 ms Normal sinus rhythm with sinus arrhythmia Low voltage QRS Septal infarct , age undetermined Abnormal ECG Confirmed by SATHYA LAL, RAMIREZ ([id number]), editor sound SHARITA ALFREDO ([id number]) on 08/18/2023 1:56:48 PM Referred By: Arthur Thompson Confirmed By:RAMIREZ MCDONNELL MD
--- NOTE | 2023-08-17 22:38 | RAD_ITS ---
INDICATION: fever EXAMINATION/TECHNIQUE: X-RAY - portable upright AP chest x-ray COMPARISON: 07/28/2023 FINDINGS: LINES/DEVICES: None. LUNGS: No consolidation, edema or effusion. No pneumothorax. MEDIASTINUM AND CARDIOVASCULAR STRUCTURES: Cardiac silhouette stable within normal limits. BONES AND SOFT TISSUES: Unremarkable. RAD/Chest 1 View (Portable) IMPRESSION: No radiographic evidence of acute cardiopulmonary disease. Electronically Signed: Oli Stanley MD at 23:46 EDT ,
--- NOTE | 2023-08-17 22:39 | EDS_ITS ---
HPI History of Present Illness Chief Complaint: Cellulitis Detail of Chief Complaint: Cellulitis, fever Informant: patient Onset/Context/Timing Onset: Today Narrative Narrative: Patient presents secondary to recurrent cellulitis. She was admitted to the hospital July 25 through July 31 for cellulitis of the bilateral lower extremities. She was initially treated on vancomycin and Zosyn then narrowed down to Rocephin after ID was consulted. Patient was discharged home on an additional 10 days of Omnicef which she finished 1 week ago. Patient noted increased redness and pain to the medial aspect of her right knee today consistent with her prior cellulitis flare. She still has erythema and warmth to the medial left knee. She did develop a fever tonight up to 101.9. [facility] Medical History Abnormal echocardiogram Anxiety Ascending aorta dilatation Asthma Depression Failure of outpatient treatment GERD without esophagitis Heel spur Hyperglycemia IBS (irritable bowel syndrome) Insomnia Osteoarthritis (arthritis due to wear and tear of joints) Home Medications acetaminophen 500 mg capsule 1,000 mg PO Q6H PRN Pain 07/11/21 [History Last Taken Unknown] aspirin 81 mg tablet,delayed release (Adult Low Dose Aspirin) 81 mg PO DAILY 07/11/21 [History Last Taken Unknown] ascorbic acid (vitamin C) 500 mg tablet 500 mg PO 1200 #0 tabs 08/01/21 [Rx Last Taken Unknown] ferrous sulfate 325 mg (65 mg iron) tablet (FeroSul) 325 mg PO DAILY@1200 #30 tabs 08/01/21 [Rx Last Taken Unknown] magnesium oxide 400 mg PO DAILY #30 caps 08/01/21 [Rx Last Taken Unknown] venlafaxine 75 mg capsule,extended release 24 hr (Effexor XR) 225 mg (3 x 75 mg) PO DAILY #90 caps 09/03/21 [Rx Last Taken Unknown] Lactobacillus acidophilus (Acidophilus capsule) 10 mg PO DAILY 07/24/23 [History Last Taken Unknown] cholestyramine (with sugar) 4 gram oral powder ea 07/24/23 [History Last Taken Unknown] doxycycline hyclate 100 mg capsule 100 mg PO BID 07/24/23 [History Last Taken Unknown] lisinopril 10 mg tablet 10 mg PO DAILY 07/24/23 [History Last Taken Unknown] omeprazole 40 mg capsule,delayed release 40 mg PO DAILY 07/24/23 [History Last Taken Unknown] pediatric multivitamin .Route 07/24/23 [History Last Taken Unknown] cefdinir 300 mg capsule 300 mg PO Q12H 10 days #20 caps 07/31/23 [Rx Last Taken Unknown] nystatin 100,000 unit/gram topical powder (Nyamyc) 1 applic topical BID 30 days #60 grams 07/31/23 [Rx Last Taken Unknown] Allergy/AdvReac Type Severity Reaction Status Date / Time adhesive tape AdvReac Unknown Other Verified 08/17/23 22:24 Family History Mother Alzheimer's dementia Surgical History H/O foot surgery History of cholecystectomy History of hip surgery Social History household members: spouse housing: house number of children: 1 current occupational status: employed 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 For lunch she has a bowl of soup and crackers which she takes to work. Sometimes has pretzels for a snack. Eats lunch at 12:30- 1 and does not get home until 7 PM and then she is starved. Her sometimes cooks and it is usually not healthy and may include pizza, hot dogs, fast food. Does not plan meals and her hisband is not supportive of healthy eating. He is a little overweight and likes to eat junk. ROS ROS ED Constitutional Constitutional ED: Reports fever(s); Denies chills Eyes Eyes: Denies change in vision or discharge from eye(s) ENT ENT ED: Denies discharge from eye(s), rhinorrhea or sore throat Cardiovascular Cardiovascular: Denies chest pain or palpitations Respiratory/Chest Respiratory/Chest: Denies cough or dyspnea Gastrointestinal Gastrointestinal: Reports diarrhea and nausea; Denies abdominal pain or vomiting Genitourinary Genitourinary ED: Denies difficulty urinating or dysuria Musculoskeletal Musculoskeletal: Reports extremity pain and myalgias; Denies back pain Integumentary Reports rash; Denies Abrasions Neurologic Neurologic: Reports headache(s); Denies weakness Psychiatric Psychiatric: Denies anxiety or depression Allergic/Immunologic Allergic/Immunologic ED: Denies lip swelling or urticaria EXAM Physical Exam Const Vital Signs: 08/17/23 22:20 08/17/23 23:11 08/17/23 23:46 Temperature 98.6 F 101.3 F H Temperature Source Temporal Oral Pulse Rate 99 86 Respiratory Rate 20 H 22 H Blood Pressure 131/82 H 129/72 H Blood Pressure Mean 98 91 Pulse Ox 98 97 Oxygen Delivery Method Room Air Room Air Room Air Positive obese Nutritional Appearance: obese HEENT Reports moist mucous membranes Eyes EOMs intact bilaterally Chest Wall inspection of chest normal and palpation of chest normal Resp normal respiratory effort and clear to auscultation bilaterally Cardio regular rate and regular rhythm GI non-tender Palpation: soft Extremity Extremity Narrative: Erythema and warmth noted to the medial aspect of both lower extremities at the level of the knees. No evidence of joint involvement. No evidence of open wounds. Neuro oriented x3 Skin Skin Narrative: Cellulitis as noted above. MDM MDM MDM Narrative Medical decision making narrative: Patient's most recent hospital admission for same was reviewed. Blood cultures were obtained. Labwork obtained to evaluate for leukocytosis, anemia, and electrolyte derangement. Chest x-ray obtained to evaluate for acute lung pathology, cardiac size, or mediastinal abnormality. IV Rocephin given. History & Record Review Discussion w/independent historian: Patient and Family Additional record(s) reviewed:: Prior inpatient record, Prior ED visit and Prior labs Lab Data Attestation: I reviewed the patient's lab results. Labs: Laboratory Results - last 24 hr 08/17/23 23:00 WBC 16.8 H RBC 4.57 Hgb 12.5 Hct 39.9 MCV 87.3 MCH 27.4 MCHC 31.3 L RDW Std Deviation 48.9 H RDW Coeff of Rani 15.3 H Plt Count 190 MPV 10.0 Immature Gran % (Auto) 0.800 Neut % (Auto) 90.9 H Lymph % (Auto) 3.2 L [place] % (Auto) 5.0 Eos % (Auto) 0.0 Baso % (Auto) 0.1 Absolute Neuts (auto) 15.3 H Absolute Lymphs (auto) 0.54 L Nucleated RBC % 0 Anisocytosis 1+ ESR 28 PT 12.9 INR 1.0 APTT 32.0 Sodium 136 Potassium 4.6 Chloride 103 Carbon Dioxide 29.0 Anion Gap 4 L BUN 20 H Creatinine 0.92 Est GFR (MDRD) Af Amer 82 Est GFR (MDRD) Non-Af 68 BUN/Creatinine Ratio 21.8 H Glucose 101 Lactic Acid 2.4 H* Calcium 8.8 Total Bilirubin 0.40 AST 15 ALT 19 Alkaline Phosphatase 81 C-React Prot Ext Range 53.20 H Total Protein 7.6 Albumin 3.3 Globulin 4.3 H Albumin/Globulin Ratio 0.8 L Radiography Chest X-Ray - ED: 1 View, Read by ED Physician, Chronic Changes and No Infiltrates Diagnostic Testing: Clinical Impression(s) from Imaging Studies Chest X-Ray 08/17/23 22:38 IMPRESSION: No radiographic evidence of acute cardiopulmonary disease. Electronically Signed: Oli Stanley MD at 23:46 EDT , EKG Initial EKG: Attestation: I personally reviewed and interpreted this EKG as follows: Interpretation: Sinus Rhythm (Sinus 82 with no acute ischemia. QTc is 415.) Treatment and Re-Evaluation :: Patient was given a dose of morphine and Zofran secondary to pain. CBC was an elevated white count of 16.8 with 91% neutrophils. Hemoglobin is normal at 12.5. Chemistry studies are unremarkable with normal renal function. Lactic acid is elevated at 2.4. CRP is 53.2 and sed rate is 28. Coags are unremarkable. Patient's temperature did increase to 101.3 here. She is given Tylenol for fever. Given her elevated lactate I will give her IV fluid bolus. During her last admission she got fluid overloaded and required Lasix. Given her current weight of 217 kg I do not feel that would be in her best interest to give her 30 cc/kg of actual body weight. I will give her 30 cc/kg of ideal body weight. She has already been initiated on Rocephin. I will speak with hospitalist for admission. Discharge Plan Triage Chief Complaint: Cellulitis ED Provider: Mandy Arce Dx/Rx/DC Orders Clinical Impression: Cellulitis, Sepsis Prescriptions: No Action acetaminophen 500 mg capsule 1,000 mg PO Q6H PRN (Reason: Pain) aspirin [Adult Low Dose Aspirin] 81 mg tablet,delayed release (DR/EC) 81 mg PO DAILY ascorbic acid (vitamin C) 500 mg Tablet 500 mg PO 1200 Qty: 0 0RF Rx Instructions: take this medication with the ferrous sulfate with food ferrous sulfate [FeroSul] 325 mg (65 mg iron) Tablet 325 mg PO DAILY@1200 Qty: 30 0RF magnesium oxide 400 mg magnesium capsule 400 mg PO DAILY Qty: 30 0RF venlafaxine [Effexor XR] 75 mg capsule,extended release 24hr 225 mg PO DAILY Qty: 90 0RF Rx Instructions: take 3 capsules every AM omeprazole 40 mg capsule,delayed release(DR/EC) 40 mg PO DAILY Patient Comments: TAKE 1 CAPSULE BY MOUTH ONCE DAILY lisinopril 10 mg tablet 10 mg PO DAILY Patient Comments: TAKE 1 TABLET BY MOUTH ONCE DAILY pediatric multivitamin [multivitamin] .Route doxycycline hyclate 100 mg capsule 100 mg PO BID Patient Comments: TAKE 1 CAPSULE BY MOUTH TWICE DAILY cholestyramine (with sugar) 4 gram powder Patient Comments: TAKE DIRECTED ON CONTAINER Acidophilus Capsule 10 mg PO DAILY cefdinir 300 mg capsule 300 mg PO Q12H 10 Days Qty: 20 0RF nystatin [Nyamyc] 100,000 unit/gram Powder 1 applic topical BID 30 Days Qty: 60 0RF Protocol: *Topical Application Instructions APPLICATION INSTRUCTIONS: apply to skin folds, particularly BLE Primary Care Provider: Helena Crews Referrals: Helena Crews PA [Primary Care Provider] - Disposition Disposition: Acute Care [facility]
[2023-08-17 23:14] LABS: Absolute Lymphocyte Count 0.54 X10^3/uL (0.83-4.51); Absolute Neutrophil Count 15.3 X10^3/uL (2.0-7.7); Basophil# 0.02 X10^3/uL; Basophil% 0.1 % (0-1); Hematocrit 39.9 % (37-47); Hemoglobin 12.5 g/dL (12.0-15.0); Lymphocyte # 0.54 X10^3/ul (0.83-4.51); Lymphocyte % 3.2 % (19-41); Mean Corp Hgb Conc 31.3 g/dL (32-36); Mean Corpuscular Hgb 27.4 pg (27.0-32.0); Mean Corpuscular Volume 87.3 fL (81-99); Monocyte# 0.84 X10^3/uL; NRBC Flagged by Analyzer 0 % (0-5); Neutrophil # 15.25 X10^3/uL (2.7-7.7); Neutrophil % 90.9 % (47-70); POSITIVE DIFFERENTIAL YES; Platelet Count 190 K/mm3 (150-450); RBC Distribution Width CV 15.3 % (11.6-14.6); RBC Distribution Width SD 48.9 fl (35.1-43.9); Red Blood Count 4.57 M/mm3 (4.2-5.4); White Blood Count 16.8 K/mm3 (4.4-11.0)
[2023-08-17 23:20] LABS: Erythrocyte Sedimentation Rate 28 mm/hr (0-30)
[2023-08-17 23:21] LABS: Differential Indicated SCAN CRITERIA MET
[2023-08-17 23:28] LABS: Prothrombin Time (Protime)PT. 12.9 SECONDS (11.7-14.9)
[2023-08-17 23:31] LABS: Anisocytosis 1+
[2023-08-17] MEDS: Ceftriaxone 2 GM in 0.9% Normal Saline (50mL MB+) 50 ML IV (23:35)
[2023-08-17] MEDS: Morphine 4 MG/ML Syringe IV (23:35)
[2023-08-17] MEDS: Ondansetron 4 MG/2 ML Vial IV (23:35)
[2023-08-17 23:44] VITALS: BMI 82.3
[2023-08-17 23:44] LABS: ALB/GLOB Ratio 0.8 RATIO (0.9-2.4); AST(SGOT) 15 U/L (15-37); Alanine Aminotransfer ALT/SGPT 19 U/L (13-56); Albumin, Serum 3.3 g/dL (3.2-5.0); Alkaline Phosphatase 81 U/L (45-117); Anion Gap 4 (5-15); BUN 20 mg/dL (7-18); BUN/Creat Ratio 21.8 RATIO (10-20); Calcium,Total 8.8 mg/dL (8.5-10.1); Chloride 103 mmol/L (98-107); Creatinine, Serum 0.92 mg/dL (0.55-1.02); EST Glomerular Filtration Rate 68 mL/min (>60); Est Glom Filt Rate - Afr Amer 82 mL/min (>60); Globulin 4.3 g/dL (2.2-4.2); Glucose 101 mg/dL (74-106); Potassium 4.6 mmol/L (3.5-5.1); Protein, Total 7.6 g/dL (6.4-8.2); Sodium Level 136 mmol/L (136-145)
[2023-08-17 23:46] VITALS: BP 129/72; PULSE 86; RESP 22; TEMP 38.5; O2SAT 97
[2023-08-18] VITALS (9 sets, daily range): BP systolic 96–122; BP diastolic 51–75; PULSE 72–93; RESP 16–20; TEMP 36.9–38.8; O2SAT 93–96; BMI 79.9
[2023-08-18 00:03] LABS: Lactic Acid 2.4 mmol/L (0.4-1.9)
[2023-08-18] MEDS: Acetaminophen 500 MG Tablet 1000 MG PO ×4 (00:08→22:20)
[2023-08-18] MEDS: 0.9% Normal Saline (1000mL) 1,000 ML 999 ML IV (00:41)
[2023-08-18] MEDS: 0.9% Normal Saline (500mL Bag) 250 ML 999 ML IV (00:41)
[2023-08-18] MEDS: 0.9% Normal Saline (500mL Bag) 500 ML 999 ML IV (00:41)
--- NOTE | 2023-08-18 00:45 | HP.PCM_ITS ---
HPI - General General Date of Admission: 08/18/23 Date of Service: 08/18/23 Chief Complaint: Cellulitis HPI Narrative PHILLIP GARCIA, is a 53 F who presents to the emergency room with chief complaint of cellulitis of the bilateral lower extremities around her knees. She had been admitted and treated for this and discharged July 31 and was sent home with Omnicef after receiving Rocephin and patient. She has been off antibiotics for 7 days and the cellulitis has recurred and now she is feeling fatigued and febrile. She denies nausea, or shortness of breath. She has an elevated white blood cell count of 16,000 with a left shift and a lactic acid of 2.4. She has been receiving IV fluids and antibiotics in the emergency room and will be admitted for further IV antibiotics and fluid. [facility] Medical History Abnormal echocardiogram Anxiety Ascending aorta dilatation Asthma Depression Failure of outpatient treatment GERD without esophagitis Heel spur Hyperglycemia IBS (irritable bowel syndrome) Insomnia Osteoarthritis (arthritis due to wear and tear of joints) Home Medications acetaminophen 500 mg capsule 1,000 mg PO Q6H PRN Pain 07/11/21 [History Last Taken Unknown] aspirin 81 mg tablet,delayed release (Adult Low Dose Aspirin) 81 mg PO DAILY 07/11/21 [History Last Taken Unknown] ascorbic acid (vitamin C) 500 mg tablet 500 mg PO 1200 #0 tabs 08/01/21 [Rx Last Taken Unknown] ferrous sulfate 325 mg (65 mg iron) tablet (FeroSul) 325 mg PO DAILY@1200 #30 tabs 08/01/21 [Rx Last Taken Unknown] magnesium oxide 400 mg PO DAILY #30 caps 08/01/21 [Rx Last Taken Unknown] venlafaxine 75 mg capsule,extended release 24 hr (Effexor XR) 225 mg (3 x 75 mg) PO DAILY #90 caps 09/03/21 [Rx Last Taken Unknown] Lactobacillus acidophilus (Acidophilus capsule) 10 mg PO DAILY 07/24/23 [History Last Taken Unknown] cholestyramine (with sugar) 4 gram oral powder ea 07/24/23 [History Last Taken Unknown] doxycycline hyclate 100 mg capsule 100 mg PO BID 07/24/23 [History Last Taken Unknown] lisinopril 10 mg tablet 10 mg PO DAILY 07/24/23 [History Last Taken Unknown] omeprazole 40 mg capsule,delayed release 40 mg PO DAILY 07/24/23 [History Last Taken Unknown] pediatric multivitamin .Route 07/24/23 [History Last Taken Unknown] cefdinir 300 mg capsule 300 mg PO Q12H 10 days #20 caps 07/31/23 [Rx Last Taken Unknown] nystatin 100,000 unit/gram topical powder (Nyamyc) 1 applic topical BID 30 days #60 grams 07/31/23 [Rx Last Taken Unknown] Allergy/AdvReac Type Severity Reaction Status Date / Time adhesive tape AdvReac Unknown Other Verified 08/17/23 22:24 Family History Mother Alzheimer's dementia Surgical History H/O foot surgery History of cholecystectomy History of hip surgery Social History household members: spouse housing: house number of children: 1 current occupational status: employed 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 For lunch she has a bowl of soup and crackers which she takes to work. Sometimes has pretzels for a snack. Eats lunch at 12:30- 1 and does not get home until 7 PM and then she is starved. Her sometimes cooks and it is usually not healthy and may include pizza, hot dogs, fast food. Does not plan meals and her hisband is not supportive of healthy eating. He is a little overweight and likes to eat junk. ROS Constitutional Constitutional: Reports chills, fatigue and fever(s) Eyes Eyes: Denies blurry vision ENT HEENT: Denies abnormal hearing Cardiovascular Cardiovascular: Denies chest pain Respiratory/Chest Respiratory/Chest: Denies shortness of breath at rest Gastrointestinal Gastrointestinal: Denies abdominal pain Genitourinary Genitourinary: Denies dysuria Musculoskeletal Musculoskeletal: Reports joint pain Integumentary Integumentary: Denies dry skin Neurologic Neurologic: Denies abnormal speech or confusion Psychiatric Psychiatric: Denies anxiety Vital Signs Vital Signs Vital Signs: 08/17/23 22:20 08/17/23 23:11 08/17/23 23:46 Temperature 98.6 F 101.3 F H Temperature Source Temporal Oral Pulse Rate 99 86 Respiratory Rate 20 H 22 H Blood Pressure 131/82 H 129/72 H Blood Pressure Mean 98 91 Pulse Ox 98 97 Oxygen Delivery Method Room Air Room Air Room Air Weight Weight: 479 lb 15.141 oz Body Mass Index (BMI) 82.3 Physical Exam Const oriented x3 HEENT normocephalic and head/scalp atraumatic Eyes PERRL and EOMs intact bilaterally Neck no lymphadenopathy Lymph Lymphatic: no lymphadenopathy noted Resp normal respiratory effort, normal air movement and clear to auscultation bilaterally Cardio regular rate, regular rhythm, S1 normal heart sound, S2 normal heart sound and no murmurs GI normal to inspection, nondistended, normoactive bowel sounds Extremity normal capillary refill Skin Skin Narrative: Bilateral lower extremity cellulitis from mid upper calf to medial thigh on both legs. Patient is morbidly obese General Skin Exam: no breakdown Neuro no focal motor deficits and no sensory deficits noted Psych thought process normal, cooperative and affect normal Results Lab / Micro Data 08/17/23 23:00 08/17/23 23:00 Labs: Laboratory Results - last 24 hr 08/17/23 23:00: WBC 16.8 H, RBC 4.57, Hgb 12.5, Hct 39.9, MCV 87.3, MCH 27.4, MCHC 31.3 L, RDW Std Deviation 48.9 H, RDW Coeff of Rani 15.3 H, Plt Count 190, MPV 10.0, Immature Gran % (Auto) 0.800, Neut % (Auto) 90.9 H, Lymph % (Auto) 3.2 L, [place] % (Auto) 5.0, Eos % (Auto) 0.0, Baso % (Auto) 0.1, Absolute Neuts (auto) 15.3 H, Absolute Lymphs (auto) 0.54 L, Nucleated RBC % 0, Anisocytosis 1+, ESR 28, PT 12.9, INR 1.0, APTT 32.0, Sodium 136, Potassium 4.6, Chloride 103, Carbon Dioxide 29.0, Anion Gap 4 L, BUN 20 H, Creatinine 0.92, Est GFR (MDRD) Af Amer 82, Est GFR (MDRD) Non-Af 68, BUN/Creatinine Ratio 21.8 H, Glucose 101, Lactic Acid 2.4 H*, Calcium 8.8, Total Bilirubin 0.40, AST 15, ALT 19, Alkaline Phosphatase 81, C-React Prot Ext Range 53.20 H, Total Protein 7.6, Albumin 3.3, Globulin 4.3 H, Albumin/Globulin Ratio 0.8 L Radiology Impression Chest X-Ray 08/17/23 22:38 IMPRESSION: No radiographic evidence of acute cardiopulmonary disease. Electronically Signed: Oli Stanley MD at 23:46 EDT Reading Location ID and State: [facility] / [place] Tel , Service support , Assessment & Plan Assessment/Plan (1) Cellulitis: (2) Lymphedema associated with obesity: (3) IBS (irritable bowel syndrome): PLAN: Plan 1 cellulitis of the lower extremities bilaterally?admit patient to general medical floor, IV Rocephin 2 g every 24 hours, repeat CBC BMP and lactic acid level, continue IV fluids at a rate of 150 cc/h. 2. Irritable bowel syndrome?continue routine home medications 3. DVT prophylaxis?low molecular weight heparin Charges/Coding Visit Charges Inpatient E&M: 55401 Init Hosp L2
[2023-08-18 03:12] LABS: Reflex Lactate? Y
[2023-08-18] MEDS: 0.9% Normal Saline (1000mL) 1,000 ML 150 ML IV ×3 (03:27→17:19)
[2023-08-18 03:50] LABS: Absolute Lymphocyte Count 0.71 X10^3/uL (0.83-4.51); Absolute Neutrophil Count 14.4 X10^3/uL (2.0-7.7); Basophil# 0.01 X10^3/uL; Basophil% 0.1 % (0-1); Hematocrit 35.3 % (37-47); Lymphocyte # 0.71 X10^3/ul (0.83-4.51); Lymphocyte % 4.5 % (19-41); Mean Corp Hgb Conc 31.2 g/dL (32-36); Mean Corpuscular Hgb 27.3 pg (27.0-32.0); Mean Corpuscular Volume 87.6 fL (81-99); Mean Platelet Vol. 9.7 fl (6.2-12.0); Monocyte# 0.57 X10^3/uL; Monocyte% 3.6 % (0-10); NRBC Flagged by Analyzer 0 % (0-5); Neutrophil # 14.38 X10^3/uL (2.7-7.7); Neutrophil % 90.8 % (47-70); Platelet Count 165 K/mm3 (150-450); RBC Distribution Width CV 15.4 % (11.6-14.6); RBC Distribution Width SD 49.7 fl (35.1-43.9); Red Blood Count 4.03 M/mm3 (4.2-5.4); White Blood Count 15.8 K/mm3 (4.4-11.0)
[2023-08-18 04:04] LABS: Anion Gap 4 (5-15); BUN 18 mg/dL (7-18); Calcium,Total 7.9 mg/dL (8.5-10.1); Chloride 105 mmol/L (98-107); Creatinine, Serum 0.86 mg/dL (0.55-1.02); EST Glomerular Filtration Rate 73 mL/min (>60); Est Glom Filt Rate - Afr Amer 88 mL/min (>60); Estimated Creatinine Clearance 63.83 ml/min; Glucose 99 mg/dL (74-106); Potassium 4.1 mmol/L (3.5-5.1); Sodium Level 137 mmol/L (136-145)
[2023-08-18 04:19] LABS: Lactic Acid 1.1 mmol/L (0.4-1.9)
--- NOTE | 2023-08-18 07:38 | PN.HOSP_ITS ---
Reason for Visit Reason for Visit: Diagnoses Obesity, unspecified (08/18/23) Lymphedema, not elsewhere classified (08/18/23) Irritable bowel syndrome without diarrhea (08/18/23) Cellulitis, unspecified (08/18/23) Subjective Subjective Patient is a 53-year-old lady with recent hospitalization for bilateral lower extremity cellulitis for which she was managed with Zosyn and vancomycin de- escalated to Rocephin discharged on Omnicef which she finished a week prior to her readmission. Presented to the ED with recurrent symptoms Objective Data Objective Data Vital Signs: Vital Signs Temp Pulse Resp BP Pulse Ox O2 Del Method 100.7 F H 81 20 H 100/53 L 95 CPAP 08/18/23 04:28 08/18/23 04:28 08/18/23 04:28 08/18/23 04:28 08/18/23 04:28 08/18/23 04:28 Oxygen Delivery Method CPAP Weight: 211.3 kg Body Mass Index (BMI) 79.9 Intake & Output: Intake and Output for Last 24 Hours 08/16/23 08/17/23 08/18/23 23:59 23:59 23:59 Intake Total 1800.00 / 1800.00 Balance 1800.00 / 1800.00 Lab / Micro Data 08/18/23 03:32 08/18/23 03:32 Labs: Laboratory Results - last 24 hr 08/17/23 23:00: WBC 16.8 H, RBC 4.57, Hgb 12.5, Hct 39.9, MCV 87.3, MCH 27.4, MCHC 31.3 L, RDW Std Deviation 48.9 H, RDW Coeff of Rani 15.3 H, Plt Count 190, MPV 10.0, Immature Gran % (Auto) 0.800, Neut % (Auto) 90.9 H, Lymph % (Auto) 3.2 L, [place] % (Auto) 5.0, Eos % (Auto) 0.0, Baso % (Auto) 0.1, Absolute Neuts (auto) 15.3 H, Absolute Lymphs (auto) 0.54 L, Nucleated RBC % 0, Anisocytosis 1+, ESR 28, PT 12.9, INR 1.0, APTT 32.0, Sodium 136, Potassium 4.6, Chloride 103, Carbon Dioxide 29.0, Anion Gap 4 L, BUN 20 H, Creatinine 0.92, Est GFR (MDRD) Af Amer 82, Est GFR (MDRD) Non-Af 68, BUN/Creatinine Ratio 21.8 H, Glucose 101, Lactic Acid 2.4 H*, Calcium 8.8, Total Bilirubin 0.40, AST 15, ALT 19, Alkaline Phosphatase 81, C-React Prot Ext Range 53.20 H, Total Protein 7.6, Albumin 3.3, Globulin 4.3 H, Albumin/Globulin Ratio 0.8 L 08/18/23 03:32: WBC 15.8 H, RBC 4.03 L, Hgb 11.0 L, Hct 35.3 L, MCV 87.6, MCH 27.3, MCHC 31.2 L, RDW Std Deviation 49.7 H, RDW Coeff of Rani 15.4 H, Plt Count 165, MPV 9.7, Immature Gran % (Auto) 1.000 H, Neut % (Auto) 90.8 H, Lymph % (Auto) 4.5 L, [place] % (Auto) 3.6, Eos % (Auto) 0.0, Baso % (Auto) 0.1, Absolute Neuts (auto) 14.4 H, Absolute Lymphs (auto) 0.71 L, Nucleated RBC % 0, Sodium 137, Potassium 4.1, Chloride 105, Carbon Dioxide 28.0, Anion Gap 4 L, BUN 18, Creatinine 0.86, Estim Creat Clear Calc 63.83, Est GFR (MDRD) Af Amer 88, Est GFR (MDRD) Non-Af 73, BUN/Creatinine Ratio 21.0 H, Glucose 99, Lactic Acid 1.1, Calcium 7.9 L Radiography Diagnostic Testing: Radiology Impression Chest X-Ray 08/17/23 22:38 IMPRESSION: No radiographic evidence of acute cardiopulmonary disease. Electronically Signed: Oli Stanley MD at 23:46 EDT , Physical Exam Narrative GENERAL: cooperative HEENT: Atraumatic; normocephalic EYES; Anicteric, Normal Conjunctiva NECK; supple, normal thyroid, RESPIRATORY: Diminished to auscultation CARDIOVASCULAR: Regular S1 S2, GI: soft, normoactive bowel sounds, : No Renal angle tenderness; EXTREMITIES: An area of erythema involving the medial aspect of the right lower extremity MUSCULOSKELETAL: no muscle wasting NEURO: Awake; no lateralizing signs. SKIN: As described above PSYCH; Flat affect Assessment & Plan Assessment/Plan (1) Cellulitis: QUALIFIERS: Laterality: right Site of cellulitis: extremity Site of cellulitis of extremity: lower extremity Qualified Code(s): L03.115 - Cellulitis of right lower limb PLAN: Plan Patient is a 53-year-old lady with recent hospitalization for bilateral lower extremity cellulitis for which she was managed with Zosyn and vancomycin de- escalated to Rocephin discharged on Omnicef which she finished a week prior to her readmission. Presented to the ED with recurrent symptoms 1. Bilateral lower extremity cellulitis ? Admitted to monitored bed patient started on Rocephin. Consult placed to infectious disease due to the recurrent nature outpatient presentation 2. Obstructive sleep apnea ? Consistent use of CPAP encouraged 3. Obesity hypoventilation syndrome ? Managed by pulmonary medicine as outpatient 4. GERD ? Patient is on PPI currently 5. Hypertension - Blood pressure controlled, home medications continued with dose adjustment as needed 6. Depression ? Patient is on venlafaxine home dose continued 7. DVT prophylaxis ? SC Lovenox Time spent in the patient's overall evaluation,decision-making process, review of diagnostic data, adjustment of management, discussion with other providers, nursing nursing and ancillary staff involved in patient's care documentation, 50 Minutes Charges/Coding Visit Charges Inpatient E&M: 30425 Subs Hosp L3
[2023-08-18] MEDS: Venlafaxine XR 75 MG Capsule 225 MG PO (09:36)
[2023-08-18] MEDS: Aspirin E.C. 81 MG Tablet PO (09:36)
[2023-08-18] MEDS: Enoxaparin 40 MG/0.4 ML Syringe SC (09:36)
[2023-08-18] MEDS: Ceftriaxone 2 GM in 0.9% Normal Saline (50mL MB+) 50 ML IV (09:36)
[2023-08-18] MEDS: Ferrous Sulfate 325 MG Tablet PO (09:37)
[2023-08-18] MEDS: Lisinopril 10 MG Tablet PO (09:37)
[2023-08-18] MEDS: Pantoprazole Sodium 40 MG Tablet PO (09:37)
[2023-08-18] MEDS: Ascorbic Acid 500 MG Tablet PO (09:37)
[2023-08-18] MEDS: 0.9% Saline Lock 10 ML Syringe IV (09:38)
[2023-08-18] MEDS: Miconazole Nitrate 43 GM Bottle 1 APPLIC TOPICAL (09:43)
--- NOTE | 2023-08-18 13:50 | CASEMGMT ---
MORIS PATIÑO chart review: Patient was admitted 07/25-07/31/23 for cellulitis. See MORIS CM assessment from 08/18/23. Patient was discharged home with family support and follow-up plans in place. Patient returned 08/18/23 to [facility] for fever and redness to lower ext. Patient admitted for cellulitis. MORIS PATIÑO in to discuss readmission and discharge needs with patient. Patient states she followed up with PCP and ID. Patient states she was taking medications as prescribed. Patient denies needs at discharge. Will monitor for IV antibiotics and HHC. CM will continue to follow this patient and plan for a safe discharge.
--- NOTE | 2023-08-18 17:43 | NURSING ---
Called report to Ruth SUBRAMANIAN on [facility]
[2023-08-19] MEDS: 0.9% Normal Saline (1000mL) 1,000 ML 150 ML IV ×4 (00:26→18:32)
[2023-08-19 02:56] VITALS: BP 129/88; PULSE 74; RESP 17; TEMP 37.1; O2SAT 96
[2023-08-19 06:47] LABS: Absolute Neutrophil Count 5.4 X10^3/uL (2.0-7.7); Basophil# 0.01 X10^3/uL; Basophil% 0.1 % (0-1); Eosinophil# 0.01 X10^3/uL; Eosinophils% 0.1 % (0-5); Hematocrit 33.6 % (37-47); Hemoglobin 10.4 g/dL (12.0-15.0); Lymphocyte % 10.2 % (19-41); Mean Corpuscular Hgb 27.2 pg (27.0-32.0); Mean Platelet Vol. 9.7 fl (6.2-12.0); Monocyte# 0.63 X10^3/uL; Monocyte% 9.2 % (0-10); NRBC Flagged by Analyzer 0 % (0-5); Neutrophil # 5.41 X10^3/uL (2.7-7.7); Neutrophil % 79.4 % (47-70); Platelet Count 143 K/mm3 (150-450); RBC Distribution Width CV 15.9 % (11.6-14.6); RBC Distribution Width SD 51.7 fl (35.1-43.9); Red Blood Count 3.82 M/mm3 (4.2-5.4); White Blood Count 6.8 K/mm3 (4.4-11.0)
[2023-08-19 07:29] LABS: Anion Gap 4 (5-15); BUN 11 mg/dL (7-18); BUN/Creat Ratio 14.6 RATIO (10-20); Calcium,Total 8.2 mg/dL (8.5-10.1); Chloride 109 mmol/L (98-107); Creatinine, Serum 0.75 mg/dL (0.55-1.02); EST Glomerular Filtration Rate 85 mL/min (>60); Est Glom Filt Rate - Afr Amer 103 mL/min (>60); Estimated Creatinine Clearance 73.19 ml/min; Glucose 105 mg/dL (74-106); Potassium 3.8 mmol/L (3.5-5.1); Sodium Level 138 mmol/L (136-145)
--- NOTE | 2023-08-19 07:50 | PN.HOSP_ITS ---
Reason for Visit Reason for Visit: Diagnoses Obesity, unspecified (08/18/23) Lymphedema, not elsewhere classified (08/18/23) Irritable bowel syndrome without diarrhea (08/18/23) Cellulitis of right lower limb (08/18/23) Cellulitis, unspecified (08/18/23) Subjective Subjective Patient seen still has significant area of induration with warmth as well as tenderness involving the right cough. Remains on broad-spectrum antibiotic therapy. Consultation was placed to ID Objective Data Objective Data Vital Signs: Vital Signs Temp Pulse Resp BP Pulse Ox O2 Del Method 98.7 F 74 17 129/88 H 96 CPAP 08/19/23 02:56 08/19/23 02:56 08/19/23 02:56 08/19/23 02:56 08/19/23 02:56 08/19/23 02:56 Oxygen Delivery Method CPAP Weight: 211.3 kg Body Mass Index (BMI) 79.9 Intake & Output: Intake and Output for Last 24 Hours 08/17/23 08/18/23 08/19/23 23:59 23:59 23:59 Intake Total 4825.00 / 6075.00 2227.5 / 2227.5 Balance 4825.00 / 6075.00 2227.5 / 2227.5 Lab / Micro Data 08/19/23 06:15 08/19/23 06:15 Labs: Laboratory Results - last 24 hr 08/19/23 06:15: WBC 6.8, RBC 3.82 L, Hgb 10.4 L, Hct 33.6 L, MCV 88.0, MCH 27.2, MCHC 31.0 L, RDW Std Deviation 51.7 H, RDW Coeff of Rani 15.9 H, Plt Count 143 L, MPV 9.7, Immature Gran % (Auto) 1.000 H, Neut % (Auto) 79.4 H, Lymph % (Auto) 10.2 L, [place] % (Auto) 9.2, Eos % (Auto) 0.1, Baso % (Auto) 0.1, Absolute Neuts (auto) 5.4, Absolute Lymphs (auto) 0.70 L, Nucleated RBC % 0, Sodium 138, Potassium 3.8, Chloride 109 H, Carbon Dioxide 25.0, Anion Gap 4 L, BUN 11, Creatinine 0.75, Estim Creat Clear Calc 73.19, Est GFR (MDRD) Af Amer 103, Est GFR (MDRD) Non-Af 85, BUN/Creatinine Ratio 14.6, Glucose 105, Calcium 8.2 L, Magnesium 2.0 Physical Exam Narrative GENERAL: cooperative HEENT: Atraumatic; normocephalic EYES; Anicteric, Normal Conjunctiva NECK; supple, normal thyroid, RESPIRATORY: Diminished to auscultation CARDIOVASCULAR: Regular S1 S2, GI: soft, normoactive bowel sounds, : No Renal angle tenderness; EXTREMITIES: An area of erythema involving the medial aspect of the right lower extremity MUSCULOSKELETAL: no muscle wasting NEURO: Awake; no lateralizing signs. SKIN: As described above PSYCH; Flat affect Assessment & Plan Assessment/Plan (1) Cellulitis: QUALIFIERS: Laterality: right Site of cellulitis: extremity Site of cellulitis of extremity: lower extremity Qualified Code(s): L03.115 - Cellul itis of right lower limb PLAN: Plan Patient is a 53-year-old lady with recent hospitalization for bilateral lower extremity cellulitis for which she was managed with Zosyn and vancomycin de- escalated to Rocephin discharged on Omnicef which she finished a week prior to her readmission. Presented to the ED with recurrent symptoms 1. Bilateral lower extremity cellulitis ? Admitted to monitored bed patient started on Rocephin. Consult placed to infectious disease due to the recurrent nature outpatient presentation ? 08/19/2023 patient seen still has significant area of induration with warmth as well as tenderness involving the right cough. Remains on broad-spectrum antibiotic therapy. Consultation was placed to ID 2. Obstructive sleep apnea ? Consistent use of CPAP encouraged 3. Obesity hypoventilation syndrome ? Managed by pulmonary medicine as outpatient 4. GERD ? Patient is on PPI currently 5. Hypertension - Blood pressure controlled, home medications continued with dose adjustment as needed 6. Depression ? Patient is on venlafaxine home dose continued 7. DVT prophylaxis ? SC Lovenox Time spent in the patient's overall evaluation,decision-making process, review of diagnostic data, adjustment of management, discussion with other providers, nursing nursing and ancillary staff involved in patient's care documentation, 35 minutes Charges/Coding Visit Charges Inpatient E&M: 42380 Subs Hosp L2
[2023-08-19 08:15] VITALS: O2SAT 95
[2023-08-19 08:56] VITALS: BP 125/70; PULSE 75; RESP 16; TEMP 37.1; O2SAT 96
[2023-08-19] MEDS: Ceftriaxone 2 GM in 0.9% Normal Saline (50mL MB+) 50 ML IV (10:05)
[2023-08-19] MEDS: Miconazole Nitrate 43 GM Bottle 1 APPLIC TOPICAL ×2 (10:06→20:47)
[2023-08-19] MEDS: Ferrous Sulfate 325 MG Tablet PO (10:07)
[2023-08-19] MEDS: Pantoprazole Sodium 40 MG Tablet PO (10:07)
[2023-08-19] MEDS: Aspirin E.C. 81 MG Tablet PO (10:07)
[2023-08-19] MEDS: Lisinopril 10 MG Tablet PO (10:07)
[2023-08-19] MEDS: Venlafaxine XR 75 MG Capsule 225 MG PO (10:08)
[2023-08-19] MEDS: Ascorbic Acid 500 MG Tablet PO (10:08)
[2023-08-19] MEDS: Enoxaparin 40 MG/0.4 ML Syringe SC (10:09)
[2023-08-19] MEDS: Acetaminophen 500 MG Tablet 1000 MG PO ×2 (11:16→20:49)
--- NOTE | 2023-08-19 14:04 | PCM.CONS.GEN ---
Assessment & Plan Assessment/Plan (1) Cellulitis: QUALIFIERS: Site of cellulitis: extremity Site of cellulitis of extremity: lower extremity Laterality: right Qualified Code(s): L03.115 - Cellulitis of right lower limb PLAN: sepsis due to RLE cellulitis - improving on ceftriaxone, will continue Thank you, will follow (2) Sepsis: HPI Consult Data Date of Consult: 08/19/23 HPI Narrative Reason for Consultation: cellulitis HPI Narrative: PHILLIP GARCIA, is a 53 F with obesity, recurrent cellulitis, recently completed omnicef about 10 days after hospital admit. Sx started again 08/14/23 in RLE with increased redness, pain, induration and associated fever, fatigue, weakness, nausea. Admitted here on ceftriaxone. Pain is improved, redness receding. Full ROS performed and neg except as noted above. [facility] Medical History Abnormal echocardiogram Anxiety Ascending aorta dilatation Asthma Depression Failure of outpatient treatment GERD without esophagitis Heel spur Hyperglycemia IBS (irritable bowel syndrome) Insomnia Osteoarthritis (arthritis due to wear and tear of joints) Home Medications acetaminophen 500 mg capsule 1,000 mg PO Q6H PRN Pain 07/11/21 [History Last Taken Unknown] aspirin 81 mg tablet,delayed release (Adult Low Dose Aspirin) 81 mg PO DAILY 07/11/21 [History Last Taken Unknown] ascorbic acid (vitamin C) 500 mg tablet 500 mg PO 1200 #0 tabs 08/01/21 [Rx Last Taken Unknown] ferrous sulfate 325 mg (65 mg iron) tablet (FeroSul) 325 mg PO DAILY@1200 #30 tabs 08/01/21 [Rx Last Taken Unknown] venlafaxine 75 mg capsule,extended release 24 hr (Effexor XR) 225 mg (3 x 75 mg) PO DAILY #90 caps 09/03/21 [Rx Last Taken Unknown] Lactobacillus acidophilus (Acidophilus capsule) 10 mg PO DAILY 07/24/23 [History Last Taken Unknown] lisinopril 10 mg tablet 10 mg PO DAILY 07/24/23 [History Last Taken Unknown] omeprazole 40 mg capsule,delayed release 40 mg PO DAILY 07/24/23 [History Last Taken Unknown] nystatin 100,000 unit/gram topical powder (Nyamyc) 1 applic topical BID 30 days #60 grams 07/31/23 [Rx Last Taken Unknown] Allergy/AdvReac Type Severity Reaction Status Date / Time adhesive tape AdvReac Unknown Other Verified 08/17/23 22:24 Family History Mother Alzheimer's dementia Surgical History H/O foot surgery History of cholecystectomy History of hip surgery Social History household members: spouse housing: house number of children: 1 current occupational status: employed 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 For lunch she has a bowl of soup and crackers which she takes to work. Sometimes has pretzels for a snack. Eats lunch at 12:30- 1 and does not get home until 7 PM and then she is starved. Her sometimes cooks and it is usually not healthy and may include pizza, hot dogs, fast food. Does not plan meals and her hisband is not supportive of healthy eating. He is a little overweight and likes to eat junk. Physical Exam Const alert, oriented x3 and no apparent distress General Appearance: cooperative HEENT normocephalic and head/scalp atraumatic Eyes PERRL and EOMs intact bilaterally Neck supple and No nodes Resp normal air movement and clear to auscultation bilaterally Cardio regular rate and regular rhythm GI soft to palpation, non-tender and non-distended Extremity General Extremity: edema Skin Skin Narrative: R leg redness, warmth, mild tendernes and induration, no drainage Neuro CN's II-XII intact bilaterally Lab / Micro Data Attestation: I reviewed the patient's lab results. 08/19/23 06:15 08/19/23 06:15 Labs: Laboratory Results - last 24 hr 08/19/23 06:15: WBC 6.8, RBC 3.82 L, Hgb 10.4 L, Hct 33.6 L, MCV 88.0, MCH 27.2, MCHC 31.0 L, RDW Std Deviation 51.7 H, RDW Coeff of Rani 15.9 H, Plt Count 143 L, MPV 9.7, Immature Gran % (Auto) 1.000 H, Neut % (Auto) 79.4 H, Lymph % (Auto) 10.2 L, [place] % (Auto) 9.2, Eos % (Auto) 0.1, Baso % (Auto) 0.1, Absolute Neuts (auto) 5.4, Absolute Lymphs (auto) 0.70 L, Nucleated RBC % 0, Sodium 138, Potassium 3.8, Chloride 109 H, Carbon Dioxide 25.0, Anion Gap 4 L, BUN 11, Creatinine 0.75, Estim Creat Clear Calc 73.19, Est GFR (MDRD) Af Amer 103, Est GFR (MDRD) Non-Af 85, BUN/Creatinine Ratio 14.6, Glucose 105, Calcium 8.2 L, Magnesium 2.0
[2023-08-19 15:00] VITALS: BP 112/72; PULSE 60; RESP 16; TEMP 37.1; O2SAT 95
[2023-08-19 20:41] VITALS: BP 149/87; PULSE 77; RESP 18; TEMP 37.4; O2SAT 97
[2023-08-20 02:16] VITALS: BP 137/95; PULSE 77; RESP 18; TEMP 36.8; O2SAT 99
[2023-08-20] MEDS: 0.9% Normal Saline (1000mL) 1,000 ML 150 ML IV ×2 (02:16→08:51)
[2023-08-20 06:55] LABS: Absolute Lymphocyte Count 0.93 X10^3/uL (0.83-4.51); Basophil# 0.01 X10^3/uL; Basophil% 0.2 % (0-1); Hematocrit 33.3 % (37-47); Hemoglobin 10.4 g/dL (12.0-15.0); Lymphocyte # 0.93 X10^3/ul (0.83-4.51); Lymphocyte % 14.3 % (19-41); Mean Corp Hgb Conc 31.2 g/dL (32-36); Mean Corpuscular Hgb 27.3 pg (27.0-32.0); Mean Corpuscular Volume 87.4 fL (81-99); Mean Platelet Vol. 9.6 fl (6.2-12.0); Monocyte# 0.55 X10^3/uL; Monocyte% 8.5 % (0-10); NRBC Flagged by Analyzer 0 % (0-5); Neutrophil # 4.96 X10^3/uL (2.7-7.7); Neutrophil % 76.4 % (47-70); Platelet Count 155 K/mm3 (150-450); RBC Distribution Width CV 15.6 % (11.6-14.6); RBC Distribution Width SD 49.9 fl (35.1-43.9); Red Blood Count 3.81 M/mm3 (4.2-5.4); White Blood Count 6.5 K/mm3 (4.4-11.0)
[2023-08-20 07:21] LABS: Anion Gap 3 (5-15); BUN 12 mg/dL (7-18); BUN/Creat Ratio 17.4 RATIO (10-20); Calcium,Total 8.5 mg/dL (8.5-10.1); Chloride 110 mmol/L (98-107); Creatinine, Serum 0.69 mg/dL (0.55-1.02); EST Glomerular Filtration Rate 94 mL/min (>60); Est Glom Filt Rate - Afr Amer 114 mL/min (>60); Estimated Creatinine Clearance 79.55 ml/min; Glucose 112 mg/dL (74-106); Potassium 3.8 mmol/L (3.5-5.1); Sodium Level 138 mmol/L (136-145)
--- NOTE | 2023-08-20 07:30 | PN.HOSP_ITS ---
Reason for Visit Reason for Visit: Diagnoses Sepsis, unspecified organism (08/18/23) Obesity, unspecified (08/18/23) Lymphedema, not elsewhere classified (08/18/23) Irritable bowel syndrome without diarrhea (08/18/23) Cellulitis of right lower limb (08/18/23) Cellulitis, unspecified (08/18/23) Subjective Subjective Seen still has significant redness involving the right calf Objective Data Objective Data Vital Signs: Vital Signs Temp Pulse Resp BP Pulse Ox O2 Del Method 98.2 F 77 18 137/95 H 99 CPAP 08/20/23 02:16 08/20/23 02:16 08/20/23 02:16 08/20/23 02:16 08/20/23 02:16 08/20/23 02:16 Oxygen Delivery Method CPAP Weight: 211.3 kg Body Mass Index (BMI) 79.9 Intake & Output: Intake and Output for Last 24 Hours 08/18/23 08/19/23 08/20/23 23:59 23:59 23:59 Intake Total 4825.00 / 6075.00 5155.0 / 5155.0 1250 / 1250 Balance 4825.00 / 6075.00 5155.0 / 5155.0 1250 / 1250 Lab / Micro Data 08/20/23 06:20 08/20/23 06:20 Labs: Laboratory Results - last 24 hr 08/20/23 06:20: WBC 6.5, RBC 3.81 L, Hgb 10.4 L, Hct 33.3 L, MCV 87.4, MCH 27.3, MCHC 31.2 L, RDW Std Deviation 49.9 H, RDW Coeff of Rani 15.6 H, Plt Count 155, MPV 9.6, Immature Gran % (Auto) 0.600, Neut % (Auto) 76.4 H, Lymph % (Auto) 14.3 L, [place] % (Auto) 8.5, Eos % (Auto) 0.0, Baso % (Auto) 0.2, Absolute Neuts (auto) 5.0, Absolute Lymphs (auto) 0.93, Nucleated RBC % 0, Sodium 138, Potassium 3.8, Chloride 110 H, Carbon Dioxide 25.0, Anion Gap 3 L, BUN 12, Creatinine 0.69, Estim Creat Clear Calc 79.55, Est GFR (MDRD) Af Amer 114, Est GFR (MDRD) Non-Af 94, BUN/Creatinine Ratio 17.4, Glucose 112 H, Calcium 8.5 Micro: Microbiology 08/17/23 23:00 Blood Culture (Wb) - Anticubital Left Blood Culture - Preliminary No growth in 48 hours. 08/17/23 23:00 Blood Culture (Wb) - Anticubital Right Blood Culture - Preliminary No growth in 48 hours. Physical Exam Narrative GENERAL: cooperative HEENT: Atraumatic; normocephalic EYES; Anicteric, Normal Conjunctiva NECK; supple, normal thyroid, RESPIRATORY: Diminished to auscultation CARDIOVASCULAR: Regular S1 S2, GI: soft, normoactive bowel sounds, : No Renal angle tenderness; EXTREMITIES: An area of erythema involving the medial aspect of the right lower extremity MUSCULOSKELETAL: no muscle wasting NEURO: Awake; no lateralizing signs. SKIN: As described above PSYCH; Flat affect Assessment & Plan Assessment/Plan (1) Cellulitis: QUALIFIERS: Laterality: right Site of cellulitis: extremity Site of cellulitis of extremity: lower extremity Qualified Code(s): L03.115 - Cellulitis of right lower limb PLAN: Plan Patient is a 53-year-old lady with recent hospitalization for bilateral lower extremity cellulitis for which she was managed with Zosyn and vancomycin de- escalated to Rocephin discharged on Omnicef which she finished a week prior to her readmission. Presented to the ED with recurrent symptoms 1. Bilateral lower extremity cellulitis ? Admitted to monitored bed patient started on Rocephin. Consult placed to infectious disease due to the recurrent nature outpatient presentation ? 08/19/2023 patient seen still has significant area of induration with warmth as well as tenderness involving the right cough. Remains on broad-spectrum antibiotic therapy. Consultation was placed to ID ? 08/20/2023 patient was seen in consultation by Dr. Garcia with infectious disease he is noted recommendations reviewed patient responded to treatment 2. Obstructive sleep apnea ? Consistent use of CPAP encouraged 3. Obesity hypoventilation syndrome ? Managed by pulmonary medicine as outpatient 4. GERD ? Patient is on PPI currently 5. Hypertension - Blood pressure controlled, home medications continued with dose adjustment as needed 6. Depression ? Patient is on venlafaxine home dose continued 7. DVT prophylaxis ? SC Lovenox Time spent in the patient's overall evaluation,decision-making process, review of diagnostic data, adjustment of management, discussion with other providers, nursing nursing and ancillary staff involved in patient's care documentation, 35 minutes Charges/Coding Visit Charges Inpatient E&M: 07190 Subs Hosp L2
[2023-08-20] MEDS: Pantoprazole Sodium 40 MG Tablet PO (08:47)
[2023-08-20] MEDS: Aspirin E.C. 81 MG Tablet PO (08:47)
[2023-08-20] MEDS: Venlafaxine XR 75 MG Capsule 225 MG PO (08:47)
[2023-08-20] MEDS: Enoxaparin 40 MG/0.4 ML Syringe SC (08:47)
[2023-08-20] MEDS: Lisinopril 10 MG Tablet PO (08:48)
[2023-08-20] MEDS: Miconazole Nitrate 43 GM Bottle 1 APPLIC TOPICAL ×2 (08:50→22:17)
[2023-08-20] MEDS: Acetaminophen 500 MG Tablet 1000 MG PO ×2 (08:50→15:46)
[2023-08-20 08:59] VITALS: BP 115/85; PULSE 83; RESP 16; TEMP 36.8; O2SAT 93
[2023-08-20] MEDS: Ceftriaxone 2 GM in 0.9% Normal Saline (50mL MB+) 50 ML IV (09:53)
--- NOTE | 2023-08-20 10:50 | PN.ID_ITS ---
Physical Exam Narrative Feeling a little better, no fever, leg sore Const alert and no apparent distress Resp normal air movement and clear to auscultation bilaterally Cardio regular rate and regular rhythm GI soft to palpation, non-tender and non-distended Skin Skin Narrative: RLE a little less red ID ID: Route of nutrition/ use of supplements: [] Nutritional Intake: [] IV Site: [] [place] Catheter: [] Assessment & Plan Assessment/Plan (1) Cellulitis: QUALIFIERS: Site of cellulitis: extremity Site of cellulitis of extremity: lower extremity Laterality: right Qualified Code(s): L03.115 - Cellulitis of right lower limb PLAN: sepsis due to RLE cellulitis - improving on ceftriaxone, will continue. Plan on 10 days omnicef at discharge 300mg bid then residential suppressive amox. will follow (2) Sepsis:
[2023-08-20] MEDS: Ascorbic Acid 500 MG Tablet PO (10:54)
[2023-08-20] MEDS: Ferrous Sulfate 325 MG Tablet PO (10:54)
[2023-08-20 11:11] VITALS: BP 120/75; PULSE 68; RESP 16; TEMP 36.6; O2SAT 98
--- NOTE | 2023-08-20 11:26 | CASEMGMT ---
Discharge Planning Received call from a case planner at [facility]. We are to call with any concerns regarding discharge planning. [place] [phone] [id number]. SW updated. Lara Montes, Discharge Planning Asst.
--- NOTE | 2023-08-20 14:28 | CASEMGMT ---
MORIS CM into pt room, pt sitting up in bed. She is aware she will be dc'd on oral atb. Pt denies any homegoing needs.
[2023-08-20 16:33] VITALS: BP 129/76; PULSE 66; RESP 16; TEMP 36.5; O2SAT 99
[2023-08-20 22:12] VITALS: BP 136/97; PULSE 73; RESP 18; TEMP 36.9; O2SAT 100
[2023-08-21 02:30] VITALS: BP 152/87; PULSE 65; RESP 18; TEMP 36.7; O2SAT 97
[2023-08-21] MEDS: Acetaminophen 500 MG Tablet 1000 MG PO ×2 (02:48→09:13)
[2023-08-21 07:51] LABS: Absolute Lymphocyte Count 1.17 X10^3/uL (0.83-4.51); Absolute Neutrophil Count 4.4 X10^3/uL (2.0-7.7); Basophil# 0.01 X10^3/uL; Basophil% 0.2 % (0-1); Eosinophil# 0.01 X10^3/uL; Eosinophils% 0.2 % (0-5); Hematocrit 33.8 % (37-47); Hemoglobin 10.6 g/dL (12.0-15.0); Lymphocyte # 1.17 X10^3/ul (0.83-4.51); Lymphocyte % 18.6 % (19-41); Mean Corp Hgb Conc 31.4 g/dL (32-36); Mean Corpuscular Hgb 27.3 pg (27.0-32.0); Mean Corpuscular Volume 87.1 fL (81-99); Mean Platelet Vol. 9.8 fl (6.2-12.0); Monocyte# 0.62 X10^3/uL; Monocyte% 9.9 % (0-10); NRBC Flagged by Analyzer 0 % (0-5); Neutrophil # 4.39 X10^3/uL (2.7-7.7); Neutrophil % 69.7 % (47-70); Platelet Count 165 K/mm3 (150-450); RBC Distribution Width CV 15.6 % (11.6-14.6); RBC Distribution Width SD 50.3 fl (35.1-43.9); Red Blood Count 3.88 M/mm3 (4.2-5.4); White Blood Count 6.3 K/mm3 (4.4-11.0)
[2023-08-21 08:10] LABS: Anion Gap 3 (5-15); BUN 11 mg/dL (7-18); BUN/Creat Ratio 15.9 RATIO (10-20); Calcium,Total 8.6 mg/dL (8.5-10.1); Chloride 108 mmol/L (98-107); Creatinine, Serum 0.69 mg/dL (0.55-1.02); EST Glomerular Filtration Rate 94 mL/min (>60); Est Glom Filt Rate - Afr Amer 113 mL/min (>60); Estimated Creatinine Clearance 79.55 ml/min; Glucose 108 mg/dL (74-106); Potassium 3.9 mmol/L (3.5-5.1); Sodium Level 138 mmol/L (136-145)
--- NOTE | 2023-08-21 08:27 | DS.PCM_ITS ---
Providers Date of Admission: 08/18/23 Date of Discharge: 08/21/23 Primary Care Physician: VJ Maloney Consultations 08/18/23 10:43 Consult: Infectious Disease Routine Consulting Provider: Wander Garcia Reason for Consult: Recurrent cellulitis EMERGENT Consult: No MD Notified: Yes Date Notified: 08/18/23 Time Notified: 10:43 Method of Notification: Text Reason For Visit: BILATERAL LOWER EXTREMITY CELLULITIS Diagnosis Discharge Diagnosis (1) Cellulitis: Status: Acute Code(s): L03.90 - Cellulitis, unspecified Qualifiers: Site of cellulitis: extremity Site of cellulitis of extremity: lower extremity Laterality: right Qualified Code(s): L03.115 - Cellulitis of right lower limb Plan Patient is a 53-year-old lady with recent hospitalization for bilateral lower extremity cellulitis for which she was managed with Zosyn and vancomycin de- escalated to Rocephin discharged on Omnicef which she finished a week prior to her readmission. Presented to the ED with recurrent symptoms 1. Bilateral lower extremity cellulitis ? Admitted to monitored bed patient started on Rocephin. Consult placed to infectious disease due to the recurrent nature outpatient presentation ? 08/19/2023 patient seen still has significant area of induration with warmth as well as tenderness involving the right cough. Remains on broad-spectrum antibiotic therapy. Consultation was placed to ID ? 08/20/2023 patient was seen in consultation by Dr. Garcia with infectious disease he is noted recommendations reviewed patient responded to treatment ? Patient was seen in consultation by Dr. Garcia recommended for patient to be discharged home on cefdinir as well as suppressant long-term therapy with amoxicillin 2. Obstructive sleep apnea ? Consistent use of CPAP encouraged 3. Obesity hypoventilation syndrome ? Managed by pulmonary medicine as outpatient 4. GERD ? Patient is on PPI currently 5. Hypertension - Blood pressure controlled, home medications continued with dose adjustment as needed 6. Depression ? Patient is on venlafaxine home dose continued 7. DVT prophylaxis ? SC Lovenox Time spent in the patient's overall evaluation,decision-making process, review of diagnostic data, adjustment of management, discussion with other providers, nursing nursing and ancillary staff involved in patient's care documentation, 35 minutes Medications at Discharge Home Medications acetaminophen 500 mg capsule 1,000 mg PO Q6H PRN Pain 07/11/21 aspirin 81 mg tablet,delayed release (Adult Low Dose Aspirin) 81 mg PO DAILY 07/11/21 ascorbic acid (vitamin C) 500 mg tablet 500 mg PO 1200 #0 tabs 08/01/21 ferrous sulfate 325 mg (65 mg iron) tablet (FeroSul) 325 mg PO DAILY@1200 #30 tabs 08/01/21 venlafaxine 75 mg capsule,extended release 24 hr (Effexor XR) 225 mg (3 x 75 mg) PO DAILY #90 caps 09/03/21 Lactobacillus acidophilus (Acidophilus capsule) 10 mg PO DAILY 07/24/23 lisinopril 10 mg tablet 10 mg PO DAILY 07/24/23 omeprazole 40 mg capsule,delayed release 40 mg PO DAILY 07/24/23 nystatin 100,000 unit/gram topical powder (Nyamyc) 1 applic topical BID 30 days #60 grams 07/31/23 amoxicillin 500 mg capsule 500 mg PO DAILY #30 caps 08/21/23 cefdinir 300 mg capsule 300 mg PO Q12H #20 caps 08/21/23 Physical Exam Narrative GENERAL: cooperative HEENT: Atraumatic; normocephalic EYES; Anicteric, Normal Conjunctiva NECK; supple, normal thyroid, RESPIRATORY: Diminished to auscultation CARDIOVASCULAR: Regular S1 S2, GI: soft, normoactive bowel sounds, : No Renal angle tenderness; EXTREMITIES: An area of erythema involving the medial aspect of the right lower extremity MUSCULOSKELETAL: no muscle wasting NEURO: Awake; no lateralizing signs. SKIN: As described above PSYCH; Flat affect Weight / BMI Weight Weight: 211.3 kg Body Mass Index (BMI) 79.9 ABG / Lab / Microbiology Data 08/21/23 07:24 08/21/23 07:24 Laboratory: Laboratory Results - last 24 hr 08/21/23 07:24: WBC 6.3, RBC 3.88 L, Hgb 10.6 L, Hct 33.8 L, MCV 87.1, MCH 27.3, MCHC 31.4 L, RDW Std Deviation 50.3 H, RDW Coeff of Rani 15.6 H, Plt Count 165, MPV 9.8, Immature Gran % (Auto) 1.400 H, Neut % (Auto) 69.7, Lymph % (Auto) 18.6 L, [place] % (Auto) 9.9, Eos % (Auto) 0.2, Baso % (Auto) 0.2, Absolute Neuts (auto) 4.4, Absolute Lymphs (auto) 1.17, Nucleated RBC % 0, Sodium 138, Potassium 3.9, Chloride 108 H, Carbon Dioxide 27.0, Anion Gap 3 L, BUN 11, Creatinine 0.69, Estim Creat Clear Calc 79.55, Est GFR (MDRD) Af Amer 113, Est GFR (MDRD) Non-Af 94, BUN/Creatinine Ratio 15.9, Glucose 108 H, Calcium 8.6 Microbiology: Microbiology 08/17/23 23:00 Blood Culture (Wb) - Anticubital Left Blood Culture - Preliminary No growth in 48 hours. 08/17/23 23:00 Blood Culture (Wb) - Anticubital Right Blood Culture - Preliminary No growth in 48 hours. D/C Instructions Discharge Diet: No restrictions Discharge Activity: Return to Normal Activity Call your doctor if you observe: Fever of 101 or Higher, Shortness of breath, Fainting spells and Chest pain Meaningful Use Info Meaningful Use Diagnoses (Choose all that apply): None applicable Discharge Plan Admission Admit Date/Time: 08/18/23 00:50 Attending Provider: Calderon Ware Primary Care Provider: Helena Crews Consulting Providers: Arthur Thompson; Wander Garcia Discharge Orders/Prescriptions Prescriptions: New cefdinir 300 mg capsule 300 mg PO Q12H Qty: 20 0RF amoxicillin 500 mg capsule 500 mg PO DAILY Qty: 30 0RF Rx Instructions: Patient to start after completing cefdinir Continued acetaminophen 500 mg capsule 1,000 mg PO Q6H PRN (Reason: Pain) aspirin [Adult Low Dose Aspirin] 81 mg tablet,delayed release (DR/EC) 81 mg PO DAILY ascorbic acid (vitamin C) 500 mg Tablet 500 mg PO 1200 Qty: 0 0RF Rx Instructions: take this medication with the ferrous sulfate with food ferrous sulfate [FeroSul] 325 mg (65 mg iron) Tablet 325 mg PO DAILY@1200 Qty: 30 0RF venlafaxine [Effexor XR] 75 mg capsule,extended release 24hr 225 mg PO DAILY Qty: 90 0RF Rx Instructions: take 3 capsules every AM omeprazole 40 mg capsule,delayed release(DR/EC) 40 mg PO DAILY Patient Comments: TAKE 1 CAPSULE BY MOUTH ONCE DAILY lisinopril 10 mg tablet 10 mg PO DAILY Patient Comments: TAKE 1 TABLET BY MOUTH ONCE DAILY Acidophilus Capsule 10 mg PO DAILY nystatin [Caamy] 100,000 unit/gram Powder 1 applic topical BID 30 Days Qty: 60 0RF Protocol: *Topical Application Instructions APPLICATION INSTRUCTIONS: apply to skin folds, particularly BLE Referrals / Follow Up: Wander Garcia MD [Med Staff - Active Staff] - Within 2 Weeks Helena Crews PA [Primary Care Provider] - Within 2 Weeks Disposition Disposition (needs filled in before D/C Order can be placed): Home, Self Care Charges/Coding Visit Charges Inpatient E&M: 31750 Disch Hosp >30min
[2023-08-21 08:57] VITALS: BP 139/85; PULSE 70; RESP 18; TEMP 36.3; O2SAT 97
[2023-08-21] MEDS: Venlafaxine XR 75 MG Capsule 225 MG PO (09:07)
[2023-08-21] MEDS: Enoxaparin 40 MG/0.4 ML Syringe SC (09:07)
[2023-08-21] MEDS: Lisinopril 10 MG Tablet PO (09:08)
[2023-08-21] MEDS: Miconazole Nitrate 43 GM Bottle 1 APPLIC TOPICAL (09:08)
[2023-08-21] MEDS: Pantoprazole Sodium 40 MG Tablet PO (09:08)
[2023-08-21] MEDS: Aspirin E.C. 81 MG Tablet PO (09:08)
[2023-08-21] MEDS: Ceftriaxone 2 GM in 0.9% Normal Saline (50mL MB+) 50 ML IV (09:13)
[2023-08-21] MEDS: 0.9% Saline Lock 10 ML Syringe IV (09:14)
--- NOTE | 2023-08-21 10:47 | PHA.DC.MC.R ---
Pharmacy [facility] Pharmacy Service has performed discharge medication reconciliation and counseling for this patient. The patient's discharge medication list was reviewed for discrepancies and discrepancies were resolved. The patient was counseled on the following discharge medications and changes in medications for homegoing were reviewed. The Reason for Use, instructions for use, and potential side effects were reviewed for all new medications. The patient's questions regarding all of their medications were answered. 1. Cefdinir 300 mg PO BID x 10 days 2. Amoxicillin 500 mg PO daily starting after completion of cefdinir The patient was able to verbally demonstrate an understanding of their discharge medications. Medications at Discharge Home Medications acetaminophen 500 mg capsule 1,000 mg PO Q6H PRN Pain 07/11/21 aspirin 81 mg tablet,delayed release (Adult Low Dose Aspirin) 81 mg PO DAILY 07/11/21 ascorbic acid (vitamin C) 500 mg tablet 500 mg PO 1200 #0 tabs 08/01/21 ferrous sulfate 325 mg (65 mg iron) tablet (FeroSul) 325 mg PO DAILY@1200 #30 tabs 08/01/21 venlafaxine 75 mg capsule,extended release 24 hr (Effexor XR) 225 mg (3 x 75 mg) PO DAILY #90 caps 09/03/21 Lactobacillus acidophilus (Acidophilus capsule) 10 mg PO DAILY 07/24/23 lisinopril 10 mg tablet 10 mg PO DAILY 07/24/23 omeprazole 40 mg capsule,delayed release 40 mg PO DAILY 07/24/23 nystatin 100,000 unit/gram topical powder (Nyamyc) 1 applic topical BID 30 days #60 grams 07/31/23 amoxicillin 500 mg capsule 500 mg PO DAILY #30 caps 08/21/23 cefdinir 300 mg capsule 300 mg PO Q12H #20 caps 08/21/23
[2023-08-21 11:58] VITALS: BP 120/58; PULSE 68; RESP 18; TEMP 36.1; O2SAT 97
== END 2023-08-21 16:05 | disposition home or self-care (01) | DRG 603 ==
LOC: ED 08-18 00:16 → PCU 08-18 01:14 → MS3 08-18 18:05
PROVIDERS: Admitting Provider Family Medicine; Emergency Provider Emergency Medicine; PCP Physician Assistant; Referring Provider Family Medicine; Visit Provider Internal Medicine
DX: L03.115 Cellulitis of right lower limb (principal); E66.2 Morbid (severe) obesity with alveolar hypoventilation; Z68.45 Body mass index [BMI] 70 or greater, adult; I10 Essential (primary) hypertension; F32.A Depression, unspecified; K58.9 Irritable bowel syndrome, unspecified; K21.9 Gastro-esophageal reflux disease without esophagitis; L03.116 Cellulitis of left lower limb; Z87.891 Personal history of nicotine dependence
CPT/HCPCS: 36415; 71045; 80048; 80053; 83605; 83735; 85025; 85610; 85652; 85730; 86140; 87040; 93005; 97802; 99284; J7030; J7040; J7050; A4216; J0696; J2405

== ENCOUNTER 2024-04-04 19:05 | Inpatient (IN) | payer BC, SELFPAY ==
[2024-04-04] VITALS (7 sets, daily range): BP systolic 109–147; BP diastolic 53–77; PULSE 76–112; RESP 18–28; TEMP 36.4–37.9; O2SAT 94–97; BMI 87.2; BMI 83.3
--- NOTE | 2024-04-04 20:19 | EX.ED.DYSGE1 ---
HPI History of Present Illness Chief Complaint: Cellulitis [facility] Medical History Abnormal echocardiogram Anxiety Ascending aorta dilatation Asthma Depression Failure of outpatient treatment GERD without esophagitis Heel spur Hyperglycemia IBS (irritable bowel syndrome) Insomnia Osteoarthritis (arthritis due to wear and tear of joints) Home Medications acetaminophen 500 mg capsule 1,000 mg PO Q6H PRN Pain 07/11/21 [History Last Taken Unknown] aspirin 81 mg tablet,delayed release (Adult Low Dose Aspirin) 81 mg PO DAILY 07/11/21 [History Last Taken Unknown] ferrous sulfate 325 mg (65 mg iron) tablet (FeroSul) 325 mg PO DAILY@1200 #30 tabs 08/01/21 [Rx Last Taken Unknown] venlafaxine 75 mg capsule,extended release 24 hr (Effexor XR) 225 mg (3 x 75 mg) PO DAILY #90 caps 09/03/21 [Rx Last Taken Unknown] lisinopril 10 mg tablet 20 mg PO DAILY 07/24/23 [History Last Taken Unknown] omeprazole 40 mg capsule,delayed release 40 mg PO DAILY 07/24/23 [History Last Taken Unknown] nystatin 100,000 unit/gram topical powder (Nyamyc) 1 applic topical BID 30 days #60 grams 07/31/23 [Rx Last Taken Unknown] cholecalciferol (vitamin D3) 1 tab PO DAILY 04/04/24 [History Last Taken Unknown] Allergy/AdvReac Type Severity Reaction Status Date / Time adhesive tape AdvReac Unknown Other Verified 04/04/24 19:07 Family History Mother Alzheimer's dementia Surgical History H/O foot surgery History of cholecystectomy History of hip surgery Social History household members: spouse housing: house number of children: 1 current occupational status: employed 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 For lunch she has a bowl of soup and crackers which she takes to work. Sometimes has pretzels for a snack. Eats lunch at 12:30- 1 and does not get home until 7 PM and then she is starved. Her sometimes cooks and it is usually not healthy and may include pizza, hot dogs, fast food. Does not plan meals and her hisband is not supportive of healthy eating. He is a little overweight and likes to eat junk. EXAM Physical Exam Const Vital Signs: 04/04/24 19:06 Temperature 100.2 F H Temperature Source Oral Pulse Rate 112 H Respiratory Rate 20 H Blood Pressure 129/69 H Blood Pressure Mean 89 Pulse Ox 95 Oxygen Delivery Method Room Air MDM MDM MDM Narrative Medical decision making narrative: HISTORY OF PRESENT ILLNESS: 54-year female presents concern for bilateral cellulitis. Patient denies active cancer, being bedridden for greater than 3 days, denies unilateral leg swelling, denies any varicose veins, denies any calf tenderness, denies tenderness along deep venous system. Denies major surgery within 12 weeks, recent paralysis, previous DVT. REVIEW OF SYSTEMS: Pertinent positives: Cellulitis Pertinent negatives: Vomiting, chest pain PHYSICAL EXAM: Nursing triage notes reviewed, Vital signs reviewed Constitutional: please see mdm HENT: MMM Eyes: Pupils equal round and reactive to light, Extraocular muscles intact Neck: No stridor, no JVD, full neck ROM Lungs: Clear to auscultation, No wheezing or rales. No increased work of breathing, no conversational dyspnea, no accessory muscle use, no nasal flaring. No respiratory distress noted Heart: Regular rate and rhythm, No murmurs, No rubs and No gallops, 2+ distal pulses (radial, femoral, posterior tibial) in all extremities Abdomen: Soft, there is no tenderness, rigidity, rebound or guarding, no obvious peritoneal signs, no palpable pulsatile abdominal masses, no auscultated abdominal bruit : No CVAT Extremities: No edema Neuro: No focal neurological deficits, cranial nerves II through XII intact, 5/5 strength in all extremities. Intact sensation to light touch in all extremities, 2+ reflexes bilateral patella tendons. Normal gait. No ataxia. Skin: MEDICAL DECISION MAKING: Chief Complaint: Cellulitis External records reviewed: Admitted in July 2023 for bilateral lower extremity cellulitis Factors affecting care: Obesity IBS, cellulitis, Social determinants of health: none History obtained from others: Patient's family Consults: Internal medicine ( Dr. Ojeda) MDM Narrative: Patient was initially tachycardic, febrile tachypneic. Exam consistent with cellulitis. No signs of necrotizing fasciitis or abscess. I considered the following differential diagnosis: Cellulitis, necrotizing fasciitis, abscess ALL IMAGES (IF OBTAINED) HAVE BEEN PERSONALLY REVIEWED AND INTERPRETED BY MYSELF. CBC with leukocytosis suggestive of systemic summation, no anemia or thrombocytopenia BMP with mild hyponatremia, otherwise no MIRIAM or signs of metabolic acidosis or endorgan hypoperfusion Lactate is wnl indicating no end-organ hypoperfusion and/or hypoxia. LFTs show no evidence of hepatobiliary pathology. The synthesis of the patient's history, exam, labs suggest bilateral cellulitis. Given bilateral nature and history of poor outpatient cure rate patient was admitted under medicine for IV antibiotics patient given a dose of IV vancomycin here. Blood cultures were drawn given multiple initial SIRS criteria prior to antibiotics. The patient and/or family, caregivers express understanding. The patient and/or family, caregivers agrees with the plan. Shared decision making: I will have a discussion with the patient and or visitors regarding risk/benefits of further testing or admission. They will be made aware of of the risk/benefits inherent in this decision they will be given the opportunity to voice understanding. Total critical care time today provided was at least 0 [] minutes. This excludes separately billable procedures. Critical care time (if documented) is secondary to the patient having high probability of clinically significant/life threatening deterioration in the patient's condition which required my urgent intervention. Impression: 1. Bilateral cellulitis 2. Leukocytosis 3. Tachycardia (resolved) Dispo: Admit to medical floor This note was generated with [employer] dictation software. It may contain incorrect words, spelling, and punctuation that were not noted in review of the chart prior to signing. Discharge Plan Triage Chief Complaint: Cellulitis ED Provider: Gian Villanueva Dx/Rx/DC Orders Prescriptions: No Action acetaminophen 500 mg capsule 1,000 mg PO Q6H PRN (Reason: Pain) aspirin [Adult Low Dose Aspirin] 81 mg tablet,delayed release (DR/EC) 81 mg PO DAILY ferrous sulfate [FeroSul] 325 mg (65 mg iron) Tablet 325 mg PO DAILY@1200 Qty: 30 0RF venlafaxine [Effexor XR] 75 mg capsule,extended release 24hr 225 mg PO DAILY Qty: 90 0RF Rx Instructions: take 3 capsules every AM omeprazole 40 mg capsule,delayed release(DR/EC) 40 mg PO DAILY Patient Comments: TAKE 1 CAPSULE BY MOUTH ONCE DAILY lisinopril 10 mg tablet 20 mg PO DAILY Patient Comments: TAKE 1 TABLET BY MOUTH ONCE DAILY nystatin [Nyamyc] 100,000 unit/gram Powder 1 applic topical BID 30 Days Qty: 60 0RF Protocol: *Topical Application Instructions APPLICATION INSTRUCTIONS: apply to skin folds, particularly BLE cholecalciferol (vitamin D3) 1 tab PO DAILY Primary Care Provider: Helena Crews Referrals: Helena Crews PA [Primary Care Provider] -
[2024-04-04] MEDS: 0.9% Normal Saline (500mL Bag) 500 ML 999 ML IV (21:13)
[2024-04-04] MEDS: Ketorolac 15 MG/ML Vial IV (21:13)
[2024-04-04 21:29] LABS: ALB/GLOB Ratio 0.8 RATIO (0.9-2.4); AST(SGOT) 26 U/L (15-37); Alanine Aminotransfer ALT/SGPT 24 U/L (13-56); Albumin, Serum 3.3 g/dL (3.2-5.0); Alkaline Phosphatase 76 U/L (45-117); Anion Gap 5 (5-15); BUN 21 mg/dL (7-18); Calcium,Total 9.1 mg/dL (8.5-10.1); Chloride 101 mmol/L (98-107); Creatinine, Serum 1.05 mg/dL (0.55-1.02); EST Glomerular Filtration Rate 58 mL/min (>60); Est Glom Filt Rate - Afr Amer 70 mL/min (>60); Estimated Creatinine Clearance 118.07 ml/min; Globulin 4.3 g/dL (2.2-4.2); Glucose 113 mg/dL (74-106); Potassium 4.6 mmol/L (3.5-5.1); Protein, Total 7.6 g/dL (6.4-8.2); Sodium Level 135 mmol/L (136-145)
[2024-04-04] MEDS: Vancomycin HCl 1,500 MG in 0.9% Normal Saline (500mL Bag) 500 ML 200 MG IV (21:38)
[2024-04-04 21:41] LABS: Lactic Acid 1.4 mmol/L (0.4-1.9)
[2024-04-04 21:46] LABS: Absolute Lymphocyte Count 0.41 X10^3/uL (0.83-4.51); Absolute Neutrophil Count 14.3 X10^3/uL (2.0-7.7); Basophil# 0.02 X10^3/uL; Basophil% 0.1 % (0-1); Hematocrit 39.1 % (37-47); Hemoglobin 12.4 g/dL (12.0-15.0); Lymphocyte # 0.41 X10^3/ul (0.83-4.51); Lymphocyte % 2.6 % (19-41); Mean Corp Hgb Conc 31.7 g/dL (32-36); Mean Corpuscular Hgb 27.1 pg (27.0-32.0); Mean Corpuscular Volume 85.6 fL (81-99); Mean Platelet Vol. 10.3 fl (6.2-12.0); Monocyte# 0.78 X10^3/uL; NRBC Flagged by Analyzer 0 % (0-5); Neutrophil # 14.33 X10^3/uL (2.7-7.7); Neutrophil % 91.5 % (47-70); POSITIVE DIFFERENTIAL YES; Platelet Count 187 K/mm3 (150-450); RBC Distribution Width CV 15.2 % (11.6-14.6); RBC Distribution Width SD 47.2 fl (35.1-43.9); Red Blood Count 4.57 M/mm3 (4.2-5.4); White Blood Count 15.7 K/mm3 (4.4-11.0)
[2024-04-04 21:47] LABS: Differential Indicated SCAN CRITERIA MET
--- NOTE | 2024-04-04 22:01 | PCM.HP.STD ---
[facility] - General General Date of Admission: 04/04/24 Date of Service: 04/04/24 Chief Complaint: Bilateral lower extremity redness and swelling. [facility] Narrative PHILLIP GARCIA, is a 54 F with a past medical history of essential hypertension, super morbid obesity; with BMI of 87.2 this admission, obesity hypoventilation syndrome; on supplemental oxygen, MIGUEL; on CPAP, bilateral lower extremity lymphedema, history of stage III sacral decubitus ulcer, history of dilatation of the ascending aorta, remote history of tobacco abuse (quit 30 years ago), asthma, ESTEFANIA, history of cholecystectomy, history of foot surgery, history of hip surgery, GERD, IBS, depression with anxiety, osteoarthritis and history of admission here from August 18, 2023 to August 21, 2023 for treatment of bilateral lower extremity cellulitis requiring infectious disease consult with Dr. Garcia who presents to [facility] ER complaining of bilateral lower extremity redness and swelling. Ms. Garcia reports her symptoms began approximately 2 to 3 days prior to admission with a gradual onset of progressively worsening lower extremity redness and swelling typical of her previous bouts of lower extremity cellulitis. She also admits to fever of 100.2 ?F and an associated tension type headache that is persistent but she denies being bedridden, calf tenderness, varicose veins, recent surgery or history of DVT. In the ER she was diagnosed with recurrent bilateral lower extremity cellulitis in the setting of chronic lower extremity lymphedema with fever and leukocytosis of 15.7 present on admission consistent with suspected SIRS and she was then admitted to the general medical floor for ongoing care for stay that is expected to be greater than 2 midnights. [facility] Medical History Abnormal echocardiogram Anxiety Ascending aorta dilatation Asthma Depression Failure of outpatient treatment GERD without esophagitis Heel spur Hyperglycemia IBS (irritable bowel syndrome) Insomnia Osteoarthritis (arthritis due to wear and tear of joints) Home Medications acetaminophen 500 mg capsule 1,000 mg PO Q6H PRN Pain 07/11/21 [History Last Taken Unknown] aspirin 81 mg tablet,delayed release (Adult Low Dose Aspirin) 81 mg PO DAILY blood thinner 07/11/21 [History Last Taken Unknown] ferrous sulfate 325 mg (65 mg iron) tablet (FeroSul) 325 mg PO DAILY@1200 iron #30 tabs 08/01/21 [Rx Last Taken Unknown] venlafaxine 75 mg capsule,extended release 24 hr (Effexor XR) 225 mg (3 x 75 mg) PO DAILY depression #90 caps 09/03/21 [Rx Last Taken Unknown] lisinopril 10 mg tablet 20 mg PO DAILY blood pressure 07/24/23 [History Last Taken Unknown] omeprazole 40 mg capsule,delayed release 40 mg PO DAILY stomach 07/24/23 [History Last Taken Unknown] nystatin 100,000 unit/gram topical powder (Nyamyc) 1 applic topical BID yeast infection 30 days #60 grams 07/31/23 [Rx Last Taken Unknown] cholecalciferol (vitamin D3) 1 tab PO DAILY supplement 04/04/24 [History Last Taken Unknown] Allergy/AdvReac Type Severity Reaction Status Date / Time adhesive tape AdvReac Unknown Other Verified 04/04/24 19:07 Family History Mother Alzheimer's dementia Surgical History H/O foot surgery History of cholecystectomy History of hip surgery Social History household members: spouse housing: house number of children: 1 current occupational status: employed 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 For lunch she has a bowl of soup and crackers which she takes to work. Sometimes has pretzels for a snack. Eats lunch at 12:30- 1 and does not get home until 7 PM and then she is starved. Her sometimes cooks and it is usually not healthy and may include pizza, hot dogs, fast food. Does not plan meals and her hisband is not supportive of healthy eating. He is a little overweight and likes to eat junk. ROS ROS Narrative Review of systems: General: Patient admits to fever but denies chills. HENT: Patient admits to persistent generalized tension type headache but she denies stuffy nose, denies sore throat EYES: Denies changes in vision or discharge from eyes. Resp: Denies cough, denies shortness of breath Cardiac: Denies chest pain, palpitations or heart racing. GI: Denies abdominal pain, denies changes in bowel, denies nausea or vomiting. : Denies changes in urination Extremity: Patient admits to increasing erythema and edema of both lower extremities as per HPI. Musculoskeletal: Feels somewhat generally weak and unwell Neuro: Patient admits to headache but she denies paresthesias or focal neurologic deficits. Heme: Denies any bleeding or bruising Skin: Patient admits to worsening erythema and edema of bilateral lower extremities with outlined margins noted. Psychiatric: No complaints voiced related uncontrolled depression or anxiety. Endocrine: No polyuria, polydipsia or polyphagia. The rest of the 14 point ROS was negative except for positives in HPI. Vital Signs Vital Signs Vital Signs: 04/04/24 19:06 04/04/24 21:07 Temperature 100.2 F H 97.8 F Temperature Source Oral Temporal Pulse Rate 112 H 89 Respiratory Rate 20 H 28 H Blood Pressure 129/69 H 116/64 Blood Pressure Mean 89 81 Pulse Ox 95 94 Oxygen Delivery Method Room Air Room Air Weight Weight: 508 lb 2.648 oz Body Mass Index (BMI) 87.2 Physical Exam Const alert, oriented x3, no apparent distress, average body habitus and healthy appearing General Appearance: cooperative HEENT normocephalic, head/scalp atraumatic, hearing grossly normal bilaterally and moist oral mucous membranes Eyes PERRL and EOMs intact bilaterally Neck no lymphadenopathy and supple Resp normal respiratory effort, no retractions, no use of accessory muscles and clear to auscultation bilaterally Cardio regular rate and regular rhythm GI normal to inspection, nondistended, normoactive bowel sounds, soft to palpation, non-tender and non-distended GI Narrative: Morbidly obese. Skin Skin Narrative: Patient denies obvious erythema and edema of her bilateral lower extremities without line of margins noted and no signs of vascular compromise. Neuro oriented x3, CN's II-XII intact bilaterally, moves all extremities and no focal motor deficits Sensorium / Orientation: awake, alert, oriented to person, oriented to place and oriented to time Speech: speech normal Psych affect normal Results Medical Records Data Attestation: I reviewed the patient's medical records Lab / Micro Data Attestation: I reviewed the patient's lab results. 04/04/24 20:55 04/04/24 20:55 Labs: Laboratory Results - last 24 hr 04/04/24 20:55: WBC 15.7 H, RBC 4.57, Hgb 12.4, Hct 39.1, MCV 85.6, MCH 27.1, MCHC 31.7 L, RDW Std Deviation 47.2 H, RDW Coeff of Rani 15.2 H, Plt Count 187, MPV 10.3, Immature Gran % (Auto) 0.800, Neut % (Auto) 91.5 H, Lymph % (Auto) 2.6 L, [place] % (Auto) 5.0, Eos % (Auto) 0.0, Baso % (Auto) 0.1, Absolute Neuts (auto) 14.3 H, Absolute Lymphs (auto) 0.41 L, Nucleated RBC % 0, Sodium 135 L, Potassium 4.6, Chloride 101, Carbon Dioxide 29.0, Anion Gap 5, BUN 21 H, Creatinine 1.05 H, Estim Creat Clear Calc 118.07, Est GFR (MDRD) Af Amer 70, Est GFR (MDRD) Non-Af 58 L, BUN/Creatinine Ratio 20.0, Glucose 113 H, Lactic Acid 1.4, Calcium 9.1, Total Bilirubin 0.60, AST 26, ALT 24, Alkaline Phosphatase 76, Total Protein 7.6, Albumin 3.3, Globulin 4.3 H, Albumin/Globulin Ratio 0.8 L Assessment & Plan Assessment/Plan (1) Cellulitis: QUALIFIERS: Site of cellulitis: extremity Site of cellulitis of extremity: lower extremity Laterality: unspecified laterality Qualified Code(s): L03.119 - Cellulitis of unspecified part of limb (2) Lymphedema associated with obesity: (3) Super obesity: (4) Headache: QUALIFIERS: Headache type: tension-type Headache chronicity pattern: acute headache Intractability: not intractable Qualified Code(s): G44.209 - Tension-type headache, unspecified, not intractable (5) PLMD (periodic limb movement disorder): PLAN: Plan 1. Recurrent bilateral lower extremity cellulitis in the setting of chronic lower extremity lymphedema with fever and leukocytosis of 15.7 consistent with suspected SIRS - Admit to general medical floor. Continue broad-spectrum antibiotics with IV vancomycin and await culture and sensitivity data. Patient's fever has resolved after Toradol and her initial lactate was normal at 1.4 mmol/L with no other signs of organ failure or hypotension arguing against sepsis. Give Tylenol as needed pain or fever. 2. Super morbid obesity; with BMI of 87.2 this admission with chronic obesity hypoventilation syndrome and obstructive sleep apnea; on CPAP complicating #1 - Weight loss will be recommended. Continue nocturnal CPAP as previous. Continue nystatin powder as previous. 3. History of admission here from August 18, 2023 to August 21, 2023 for treatment of bilateral lower extremity cellulitis requiring infectious disease consult with Dr. Garcia - Noted. 4. Essential hypertension - Continue home regimen as previous plus give as needed IV hydralazine for systolic blood pressure greater than 160 mmHg. 5. History of stage III sacral decubitus ulcer - Noted. 6. History of dilatation of the ascending aorta - Noted. Check echocardiogram this admission to reassess. 7. Remote history of tobacco abuse (quit 30 years ago) - Noted. 8. Asthma - Stable with no evidence of acute flare. Continue as needed nebulizers. 9. ESTEFANIA - Resume iron supplementation as previous. 10. History of cholecystectomy - Noted. 11. History of foot surgery - Noted. 12. History of hip surgery - Noted. 13. GERD - Continue PPI. 14. IBS- Stable. 15. Depression with anxiety - Resume home regimen as previous. 16. Osteoarthritis - Give Tylenol as needed. 17. DVT prophylaxis - Give full dose Lovenox until lower extremity Dopplers confirm there is no DVT. Total time: Approximately 55 minutes. Charges/Coding Visit Charges Inpatient E&M: 60012 Init Hosp L2
[2024-04-04 22:28] LABS: Differential Comment SCANNED
[2024-04-04] MEDS: traMADol 50 MG Tablet PO (23:52)
--- NOTE | 2024-04-04 23:57 | PCM.RX.CS ---
Consult Antibiotic Management Pharmacy has been consulted to manage selected antibiotic: Vancomycin Type of Intervention Type of Consult: New start Labs Labs: Sodium 135 mmol/L (136-145) L 04/04/24 20:55 Potassium 4.6 mmol/L (3.5-5.1) 04/04/24 20:55 Chloride 101 mmol/L (98-107) 04/04/24 20:55 Carbon Dioxide 29.0 mmol/L (21.0-32.0) 04/04/24 20:55 Anion Gap 5 (5-15) 04/04/24 20:55 BUN 21 mg/dL (7-18) H 04/04/24 20:55 Creatinine 1.05 mg/dL (0.55-1.02) H 04/04/24 20:55 Est GFR (MDRD) Af Amer 70 mL/min (>60) 04/04/24 20:55 Est GFR (MDRD) Non-Af 58 mL/min (>60) L 04/04/24 20:55 BUN/Creatinine Ratio 20.0 RATIO (10-20) 04/04/24 20:55 Glucose 113 mg/dL (74-106) H 04/04/24 20:55 Dosing Weight Weight used for dosin.2 kg Estimated Creatinine Clearance Estimated Creatinine Clearance: 118 Goal Trough Goal Trough: 15-20 mcg/mL Pharmacy Plan for Drug Dosing Pharmacy Plan for Drug Dosing: Pharmacy Service will continue to monitor and adjust dosing as required. 1500MG GIVEN IN ER, DOSE 1500MG Q8H AND DRAW TROUGH PRIOR TO 4TH DOSE Follow-Up Labs Follow-Up Labs: Trough: Vancomycin Date/Time Labs Ordered Labs to be done on [date and time ordered]: 04/05 @ 2100
[2024-04-05 05:36] VITALS: BP 142/92; PULSE 80; RESP 16; TEMP 37.8; O2SAT 96
[2024-04-05] MEDS: Vancomycin HCl 1,500 MG in 0.9% Normal Saline (500mL Bag) 500 ML 250 MG IV ×3 (05:37→22:21)
[2024-04-05] MEDS: Acetaminophen 500 MG Tablet 650 MG PO (05:41)
[2024-04-05] MEDS: Enoxaparin 120 MG/0.8 ML Syringe SC (06:56)
[2024-04-05 07:00] VITALS: TEMP 37.4
[2024-04-05] MEDS: Piperacil/Tazobactam 3.375 GM in 0.9% Normal Saline (50mL MB+) 50 ML IV ×3 (08:29→22:10)
[2024-04-05 09:24] VITALS: BP 118/60; PULSE 72; RESP 16; TEMP 36.1; O2SAT 94
[2024-04-05] MEDS: Lactobacillis Acidophilus 2 CAP PO ×2 (09:35→22:11)
[2024-04-05] MEDS: Ascorbic Acid 500 MG Tablet 1000 MG PO ×2 (09:35→16:21)
[2024-04-05] MEDS: Aspirin E.C. 81 MG Tablet PO (09:36)
[2024-04-05] MEDS: Venlafaxine XR 75 MG Capsule 225 MG PO (09:36)
[2024-04-05] MEDS: Pantoprazole Sodium 40 MG Tablet PO (09:37)
[2024-04-05] MEDS: Nystatin Powder 15gm Bottle 1 APPLIC TOPICAL ×2 (09:37→22:11)
[2024-04-05] MEDS: Lisinopril 20 MG Tablet PO (09:38)
[2024-04-05] MEDS: Zinc Sulfate 50 mg zinc (220 mg) ORAL capsule PO (09:38)
[2024-04-05] MEDS: Cholecalciferol (VIT D3) 25 MCG TABLET (1,000 UNITS) PO (09:38)
--- NOTE | 2024-04-05 10:48 | PCM.PN.HOSP ---
Subjective Subjective Doing well, no issues overnight. Has right medial thigh redness greater than left Objective Data Objective Data Vital Signs: Vital Signs Temp Pulse Resp BP Pulse Ox O2 Del Method 97.0 F L 72 16 118/60 94 Room Air 04/05/24 09:24 04/05/24 09:24 04/05/24 09:24 04/05/24 09:24 04/05/24 09:24 04/05/24 09:24 Oxygen Delivery Method Room Air Weight: 500 lb 14.244 oz Body Mass Index (BMI) 83.3 Intake & Output: Intake and Output for Last 24 Hours 04/04/24 04/05/24 04/06/24 03:59 03:59 03:59 Intake Total 1230 / 1230 100 / 100 Balance 1230 / 1230 100 / 100 Lab / Micro Data 04/04/24 20:55 04/04/24 20:55 Labs: Laboratory Results - last 24 hr 04/04/24 20:55: WBC 15.7 H, RBC 4.57, Hgb 12.4, Hct 39.1, MCV 85.6, MCH 27.1, MCHC 31.7 L, RDW Std Deviation 47.2 H, RDW Coeff of Rani 15.2 H, Plt Count 187, MPV 10.3, Immature Gran % (Auto) 0.800, Neut % (Auto) 91.5 H, Lymph % (Auto) 2.6 L, [place] % (Auto) 5.0, Eos % (Auto) 0.0, Baso % (Auto) 0.1, Absolute Neuts (auto) 14.3 H, Absolute Lymphs (auto) 0.41 L, Nucleated RBC % 0, Differential Comment SCANNED, Sodium 135 L, Potassium 4.6, Chloride 101, Carbon Dioxide 29.0, Anion Gap 5, BUN 21 H, Creatinine 1.05 H, Estim Creat Clear Calc 118.07, Est GFR (MDRD) Af Amer 70, Est GFR (MDRD) Non-Af 58 L, BUN/Creatinine Ratio 20.0, Glucose 113 H, Lactic Acid 1.4, Calcium 9.1, Total Bilirubin 0.60, AST 26, ALT 24, Alkaline Phosphatase 76, Total Protein 7.6, Albumin 3.3, Globulin 4.3 H, Albumin/Globulin Ratio 0.8 L Physical Exam Narrative General: Alert, Oriented x3, Cooperative, No apparent distress, super morbidly obese HEENT: Atraumatic, PERRLA, EOMI, Normocephalic Oral: Moist Mucosa Neck: Supple, No JVD Lungs: Diminished due to body habitus, Normal air movement, No rhonchi, No wheeze, No rales Cardiovascular: Regular rate, Regular Rhythm, Normal S1, Normal S2, No murmurs, limited due to body habitus Abdomen: Soft, Non Tender, Non-Distended, No Hepato-splenomegaly Extremities: Bilateral lower extremity lymphedema, Capillary Refill Less than 3 Seconds Skin: Right medial thigh redness with slight tenderness, no significant left thigh redness Musculoskeletal: No Tenderness to Palpation of Joints or Extremities Neurological: No focal neurological deficits, Motor Exam 5/5 strength throughout, Sensory exam intact to light touch and pain Psych/Mental Status: Normal Affect, Appropriate Assessment & Plan Assessment/Plan (1) Cellulitis: QUALIFIERS: Site of cellulitis: extremity Site of cellulitis of extremity: lower extremity Laterality: unspecified laterality Qualified Code(s): L03.119 - Cellulitis of unspecified part of limb (2) Lymphedema associated with obesity: (3) Super obesity: (4) Headache: QUALIFIERS: Headache type: tension-type Headache chronicity pattern: acute headache Intractability: not intractable Qualified Code(s): G44.209 - Tension-type headache, unspecified, not intractable (5) PLMD (periodic limb movement disorder): PLAN: Plan 1. Right lower extremity cellulitis with bilateral chronic lower extremity lymphedema ? Continue with IV antibiotics ? Blood cultures are pending ? No sepsis due to insurance 2. Essential HTN/super morbidly obese ? Blood pressure stable ? Continue with her home blood pressure medication ? Continue with aspirin ? Would benefit from lifestyle modification 3. Iron deficiency anemia ? Stable ? Continue with iron replacement 4. GERD ? Stable ? Continue with PPI 5. Anxiety/depression ? Stable ? Continue with Effexor DVT: Lovenox Charges/Coding Visit Charges Inpatient E&M: 28268 Subs Hosp L2
--- NOTE | 2024-04-05 10:55 | VDLE_ITS ---
Reason For Study: Shortness of Breath RIGHT LEFT GSV is normal. GSV is normal. CFV is compressible, spontaneous, phasic, CFV is compressible, spontaneous, phasic, competent and demonstrates normal competent, and demonstrates normal augmentation. augmentation. FV is compressible, spontaneous, phasic, FV is compressible, spontaneous, phasic, competent and demonstrates normal competent and demonstrates normal augmentation. augmentation. POP V is compressible, spontaneous, phasic, POP V is compressible, spontaneous, phasic, competent and demonstrates normal competent and demonstrates normal augmentation. augmentation. T/P Trunk is compressible. T/P Trunk is compressible. PTV is compressible. PTV is compressible. Unable to visualize Peroneal Veins. Unable to visualize Peroneal Veins. Procedure This is a venous duplex using B-mode, color flow and spectral Doppler. Exam performed portable in patient room. The study was technically difficult. Limited views were obtained. A preliminary report was called and/or faxed to M/S 3 MORIS Pham. VL/Venous Duplex US - Yariel Extrem Interpretation Summary Deep veins of the bilateral lower extremities are patent and compressible segme ntally. There is no evidence of bilateral lower extremity deep vein thrombosis. The bilateral great saphenous veins appear patent and compressible segmentally. Ordering Physician: Rubin Hadley Referring Physician: Helena Crews Performed By: Minor Antonio, RVT
[2024-04-05] MEDS: Ferrous Sulfate 325 MG Tablet PO (11:59)
--- NOTE | 2024-04-05 15:14 | CASEMGMT ---
MORIS PATIÑO Assessment: Face to Face with pt for initial transition planning/care coordination assessment. RN HAROON introduced self and role at [facility], pt voices understanding and consents to assessment. Pt laying in bed in no distress. Pt is A&O x4 and answers all questions appropriately at this time. Care providers, pharmacy, and demographics verified/updated. Admitting Dx: Bilateral Lower Extremity Cellulitis PCP: Mars Specialists: Alex, Polmonologist; Essie, supervisor cleaning and annealing Preferred Pharmacy: [facility] Insurance: [place] - Primary, [place] - Secondary Prescription Benefit: yes LNOK: Maggie Bassett - sister, Naman - Living Arrangements: Pt lives with in a 1 story home with 2 steps and handrail to enter. Pt states she is independent with ADLs and needs assistance with IADLs. Denies any concerns going home. Transportation: Pt drives self and denies concerns with transportation. Stated is able to drive if she needs assistance. DME: walker, cpap HHC/SNF: Hx of but can't recall name of agency. Hx of [facility] rehab. Pt states no concerns with going home at time of dc. Pt states no further concerns/needs. CM to follow. Advised pt to ask CM if any further question/concerns/needs arise, voices understanding. Pt Goal: Home Plan: Home no needs Harley SUBRAMANIAN CM
[2024-04-05 16:12] VITALS: BP 118/61; PULSE 72; RESP 16; TEMP 36.7; O2SAT 94
[2024-04-05 21:42] LABS: Vancomycin, Trough Level 18.5 ug/mL (5.0-15.0)
--- NOTE | 2024-04-05 21:47 | PCM.RX.CS ---
Consult Antibiotic Management Pharmacy has been consulted to manage selected antibiotic: Vancomycin Type of Intervention Type of Consult: Follow-up Labs Labs: Sodium 135 mmol/L (136-145) L 04/04/24 20:55 Potassium 4.6 mmol/L (3.5-5.1) 04/04/24 20:55 Chloride 101 mmol/L (98-107) 04/04/24 20:55 Carbon Dioxide 29.0 mmol/L (21.0-32.0) 04/04/24 20:55 Anion Gap 5 (5-15) 04/04/24 20:55 BUN 21 mg/dL (7-18) H 04/04/24 20:55 Creatinine 1.05 mg/dL (0.55-1.02) H 04/04/24 20:55 Est GFR (MDRD) Af Amer 70 mL/min (>60) 04/04/24 20:55 Est GFR (MDRD) Non-Af 58 mL/min (>60) L 04/04/24 20:55 BUN/Creatinine Ratio 20.0 RATIO (10-20) 04/04/24 20:55 Glucose 113 mg/dL (74-106) H 04/04/24 20:55 Vancomycin Trough 18.5 ug/mL (5.0-15.0) H 04/05/24 20:54 Pharmacy Plan for Drug Dosing Pharmacy Plan for Drug Dosing: Pharmacy Service will continue to monitor and adjust dosing as required. TROUGH 18.5 @ 7.5 HOURS (GOAL 15-20). NO CHANGES, FOLLOW UP TROUGH IN 2 DAYS Follow-Up Labs Follow-Up Labs: Trough: Vancomycin Date/Time Labs Ordered Labs to be done on [date and time ordered]: 04/07 @ 2100
[2024-04-05 22:06] VITALS: BP 114/59; PULSE 90; RESP 22; TEMP 37.1; O2SAT 93
[2024-04-06 05:30] VITALS: BP 146/85; PULSE 66; RESP 20; TEMP 36.9; O2SAT 95
[2024-04-06] MEDS: Piperacil/Tazobactam 3.375 GM in 0.9% Normal Saline (50mL MB+) 50 ML IV ×2 (05:44→15:18)
[2024-04-06] MEDS: Vancomycin HCl 1,500 MG in 0.9% Normal Saline (500mL Bag) 500 ML 250 MG IV ×2 (05:44→14:00)
[2024-04-06 09:00] VITALS: BP 118/61; PULSE 91; RESP 16; TEMP 36.3; O2SAT 96
[2024-04-06 09:03] LABS: Anion Gap 5 (5-15); BUN 13 mg/dL (7-18); BUN/Creat Ratio 18.1 RATIO (10-20); Chloride 106 mmol/L (98-107); Creatinine, Serum 0.72 mg/dL (0.55-1.02); EST Glomerular Filtration Rate 89 mL/min (>60); Est Glom Filt Rate - Afr Amer 108 mL/min (>60); Estimated Creatinine Clearance 172.27 ml/min; Glucose 98 mg/dL (74-106); Potassium 4.1 mmol/L (3.5-5.1); Sodium Level 138 mmol/L (136-145)
[2024-04-06] MEDS: Nystatin Powder 15gm Bottle 1 APPLIC TOPICAL ×2 (09:18→22:33)
[2024-04-06] MEDS: Pantoprazole Sodium 40 MG Tablet PO (09:19)
[2024-04-06] MEDS: Zinc Sulfate 50 mg zinc (220 mg) ORAL capsule PO (09:19)
[2024-04-06] MEDS: Venlafaxine XR 75 MG Capsule 225 MG PO (09:19)
[2024-04-06] MEDS: Aspirin E.C. 81 MG Tablet PO (09:20)
[2024-04-06] MEDS: Ascorbic Acid 500 MG Tablet 1000 MG PO ×2 (09:20→18:41)
[2024-04-06] MEDS: Cholecalciferol (VIT D3) 25 MCG TABLET (1,000 UNITS) PO (09:20)
[2024-04-06] MEDS: Lisinopril 20 MG Tablet PO (09:20)
[2024-04-06] MEDS: Lactobacillis Acidophilus 2 CAP PO ×2 (09:20→22:33)
[2024-04-06 10:06] LABS: Absolute Neutrophil Count 3.7 X10^3/uL (2.0-7.7); Basophil# 0.01 X10^3/uL; Basophil% 0.2 % (0-1); Eosinophil# 0.01 X10^3/uL; Eosinophils% 0.2 % (0-5); Hematocrit 39.7 % (37-47); Lymphocyte % 12.2 % (19-41); Mean Corp Hgb Conc 30.2 g/dL (32-36); Mean Corpuscular Hgb 26.3 pg (27.0-32.0); Mean Corpuscular Volume 87.1 fL (81-99); Mean Platelet Vol. 9.5 fl (6.2-12.0); Monocyte# 0.53 X10^3/uL; Monocyte% 10.8 % (0-10); NRBC Flagged by Analyzer 0 % (0-5); Neutrophil # 3.72 X10^3/uL (2.7-7.7); Neutrophil % 75.6 % (47-70); POSITIVE DIFFERENTIAL YES; Platelet Count 140 K/mm3 (150-450); RBC Distribution Width CV 15.5 % (11.6-14.6); RBC Distribution Width SD 49.1 fl (35.1-43.9); Red Blood Count 4.56 M/mm3 (4.2-5.4); White Blood Count 4.9 K/mm3 (4.4-11.0)
[2024-04-06 12:00] VITALS: BP 144/67; PULSE 67; RESP 16; TEMP 36.6; O2SAT 95
[2024-04-06] MEDS: Ferrous Sulfate 325 MG Tablet PO (12:48)
[2024-04-06 14:03] VITALS: BP 144/67; PULSE 67; RESP 16; TEMP 36.6; O2SAT 95
--- NOTE | 2024-04-06 14:44 | PN.HOSP_ITS ---
Subjective Subjective doing well, no issues overnight. Redness is about the same Objective Data Objective Data Vital Signs: Vital Signs Temp Pulse Resp BP Pulse Ox O2 Del Method 97.9 F 67 16 144/67 H 95 Room Air 04/06/24 14:03 04/06/24 14:03 04/06/24 14:03 04/06/24 14:03 04/06/24 14:03 04/06/24 14:03 Oxygen Delivery Method Room Air Weight: 500 lb 14.244 oz Body Mass Index (BMI) 83.3 Intake & Output: Intake and Output for Last 24 Hours 04/05/24 04/06/24 04/07/24 03:59 03:59 03:59 Intake Total 1230 / 1230 2240 / 2240 680 / 680 Balance 1230 / 1230 2240 / 2240 680 / 680 Lab / Micro Data 04/06/24 09:50 04/06/24 06:35 Labs: Laboratory Results - last 24 hr 04/05/24 20:54: Vancomycin Trough 18.5 H 04/06/24 06:35: WBC Cancelled, Corrected WBC Cancelled, RBC Cancelled, Hgb Cancelled, Hct Cancelled, MCV Cancelled, MCH Cancelled, MCHC Cancelled, RDW Std Deviation Cancelled, RDW Coeff of Rani Cancelled, Plt Count Cancelled, MPV Cancelled, Immature Gran % (Auto) Cancelled, Neut % (Auto) Cancelled, Lymph % (Auto) Cancelled, [place] % (Auto) Cancelled, Eos % (Auto) Cancelled, Baso % (Auto) Cancelled, Absolute Neuts (auto) Cancelled, Absolute Lymphs (auto) Cancelled, Total Counted Cancelled, Neutrophils % (Manual) Cancelled, Band Neutrophils % Cancelled, Lymphocytes % (Manual) Cancelled, Monocytes % (Manual) Cancelled, E osinophils % (Manual) Cancelled, Basophils % (Manual) Cancelled, Metamyelocytes % Cancelled, Myelocytes % Cancelled, Promyelocytes % Cancelled, Blast Cells % Cancelled, Plasma Cell % (Manual) Cancelled, Other Cells % Cancelled, Nucleated RBC % Cancelled, Nucleated RBCs/100 WBC Cancelled, Differential Comment Cancelled, Diff Path Review Cancelled, Hypersegmented Neuts Cancelled, Atypical Lymphocytes Cancelled, Reactive Lymphocytes Cancelled, Smudge Cells Cancelled, Toxic Granulation Cancelled, Toxic Vacuolation Cancelled, Dohle Bodies Cancelled, Megan Rods Cancelled, Platelet Estimate Cancelled, Plt Morphology Comment Cancelled, RBC Morphology Cancelled 04/06/24 06:35: RBC Morphology Cancelled, Polychromasia Cancelled, Hypochromasia Cancelled, Basophilic Stippling Cancelled, Anisocytosis Cancelled, Microcytosis Cancelled, Macrocytosis Cancelled, Spherocytes Cancelled, Sickle Cells Cancelled, Target Cells Cancelled, Tear Drop Cells Cancelled, Ovalocytes Cancelled, Stomatocytes Cancelled, Galindo-[place] Bodies Cancelled, [place] Cells Cancelled, Bite Cells Cancelled, Crenated Cell Cancelled, Acanthocytes (Spur) Cancelled, Rouleaux Cancelled, Schistocytes Cancelled, Sodium 138, Potassium 4.1, Chloride 106, Carbon Dioxide 27.0, Anion Gap 5, BUN 13, Creatinine 0.72, Es ryan Creat Clear Calc 172.27, Est GFR (MDRD) Af Amer 108, Est GFR (MDRD) Non-Af 89, BUN/Creatinine Ratio 18.1, Glucose 98, Calcium 9.0 04/06/24 09:50: WBC 4.9, RBC 4.56, Hgb 12.0, Hct 39.7, MCV 87.1, MCH 26.3 L, MCHC 30.2 L, RDW Std Deviation 49.1 H, RDW Coeff of Rani 15.5 H, Plt Count 140 L, MPV 9.5, Immature Gran % (Auto) 1.000 H, Neut % (Auto) 75.6 H, Lymph % (Auto) 12.2 L, [place] % (Auto) 10.8 H, Eos % (Auto) 0.2, Baso % (Auto) 0.2, Absolute Neuts (auto) 3.7, Absolute Lymphs (auto) 0.60 L, Nucleated RBC % 0 Radiography Diagnostic Testing: Radiology Impression Venous Doppler Study 04/05/24 10:55 Interpretation Summary Deep veins of the bilateral lower extremities are patent and compressible segmentally. There is no evidence of bilateral lower extremity deep vein thrombosis. The bilateral great saphenous veins appear patent and compressible segmentally. Ordering Physician: Rubin Hadley Referring Physician: Helena Crews Performed By: Minor Antonio, RVT Physical Exam Narrative General: Alert, Oriented x3, Cooperative, No apparent distress, super morbidly obese HEENT: Atraumatic, PERRLA, EOMI, Normocephalic Oral: Moist Mucosa Neck: Supple, No JVD Lungs: Diminished due to body habitus, Normal air movement, No rhonchi, No wheeze, No rales Cardiovascular: Regular rate, Regular Rhythm, Normal S1, Normal S2, No murmurs, limited due to body habitus Abdomen: Soft, Non Tender, Non-Distended, No Hepato-splenomegaly Extremities: Bilateral lower extremity lymphedema, Capillary Refill Less than 3 Seconds Skin: Right medial thigh redness with slight tenderness, no significant left thigh redness Musculoskeletal: No Tenderness to Palpation of Joints or Extremities Neurological: No focal neurological deficits, Motor Exam 5/5 strength throu ghout, Sensory exam intact to light touch and pain Psych/Mental Status: Normal Affect, Appropriate Assessment & Plan Assessment/Plan (1) Cellulitis: QUALIFIERS: Site of cellulitis: extremity Site of cellulitis of extremity: lower extremity Laterality: unspecified laterality Qualified Code(s): L03.119 - Cellulitis of unspecified part of limb (2) Lymphedema associated with obesity: (3) Super obesity: (4) Headache: QUALIFIERS: Headache type: tension-type Headache chronicity pattern: acute headache Intractability: not intractable Qualified Code(s): G44.209 - Tension-type headache, unspecified, not intractable (5) PLMD (periodic limb movement disorder): PLAN: Plan 1. Right lower extremity cellulitis with bilateral chronic lower extremity lymphedema ? Continue with IV antibiotics ? Blood cultures are pending ? No sepsis due to insurance ? Will consult infectious disease as she has needed prolonged antibiotics on her previous hospitalizations for lower extremity cellulitis ?We will check a MRSA screen and if negative discontinue vancomycin 2. Essential HTN/super morbidly obese ? Blood pressure stable ? Continue with her home blood pressure medication ? Continue with aspirin ? Would benefit from lifestyle modification 3. Iron deficiency anemia ? Stable ? Continue with iron replacement 4. GERD ? Stable ? Continue with PPI 5. Anxiety/depression ? Stable ? Continue with Effexor DVT: Lovenox Charges/Coding Visit Charges Inpatient E&M: 19197 Subs Hosp L2
[2024-04-06] MEDS: 0.9% Normal Saline (250mL Bag) 250 ML 15 ML IV (15:18)
--- NOTE | 2024-04-06 15:30 | CON.PCM.ID_ITS ---
Assessment & Plan Assessment/Plan (1) Cellulitis: QUALIFIERS: Site of cellulitis: extremity Site of cellulitis of extremity: lower extremity Laterality: unspecified laterality Qualified Code(s): L03.119 - Cellulitis of unspecified part of limb PLAN: Nonpurulent cellulitis. Last episode of cellulitis was 07/2023. Improving. Bcx ngtd. Will narrow to ceftriaxone, plan on po abx at discharge. Will follow, thank you (2) Lymphedema associated with obesity: HPI Consult Data Date of Consult: 04/06/24 HPI Narrative Reason for Consultation: cellulitis HPI Narrative: PHILLIP GARCIA, is a 54 F with chronic edema, presented 5/6 with one day history of sudden onset fever, chills, fatigue, BLE redness (R medial thigh most of all). No known inciting events. Uses lymphedema pumps. No cellulitis episodes since admit 07/2023. Admitted on vanc/zosyn, feeling better, no drainage. Full ROS performed and neg except as noted above. [facility] Medical History Abnormal echocardiogram Anxiety Ascending aorta dilatation Asthma Depression Failure of outpatient treatment GERD without esophagitis Heel spur Hyperglycemia IBS (irritable bowel syndrome) Insomnia Osteoarthritis (arthritis due to wear and tear of joints) Home Medications acetaminophen 500 mg capsule 1,000 mg PO Q6H PRN Pain 07/11/21 [History Last Taken Unknown] aspirin 81 mg tablet,delayed release (Adult Low Dose Aspirin) 81 mg PO DAILY blood thinner 07/11/21 [History Last Taken Unknown] ferrous sulfate 325 mg (65 mg iron) tablet (FeroSul) 325 mg PO DAILY@1200 iron #30 tabs 08/01/21 [Rx Last Taken Unknown] venlafaxine 75 mg capsule,extended release 24 hr (Effexor XR) 225 mg (3 x 75 mg) PO DAILY depression #90 caps 09/03/21 [Rx Last Taken Unknown] lisinopril 10 mg tablet 20 mg PO DAILY blood pressure 07/24/23 [History Last Taken Unknown] omeprazole 40 mg capsule,delayed release 40 mg PO DAILY stomach 07/24/23 [History Last Taken Unknown] nystatin 100,000 unit/gram topical powder (Nyamyc) 1 applic topical BID yeast infection 30 days #60 grams 09/01/23 [Rx Last Taken Unknown] cholecalciferol (vitamin D3) 1 tab PO DAILY supplement 04/04/24 [History Last Taken Unknown] Allergy/AdvReac Type Severity Reaction Status Date / Time adhesive tape AdvReac Unknown Other Verified 04/04/24 19:07 Family History Mother Alzheimer's dementia Surgical History H/O foot surgery History of cholecystectomy History of hip surgery Social History household members: spouse housing: house number of children: 1 current occupational status: employed 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 For lunch she has a bowl of soup and crackers which she takes to work. Sometimes has pretzels for a snack. Eats lunch at 12:30- 1 and does not get home until 7 PM and then she is starved. Her sometimes cooks and it is usually not healthy and may include pizza, hot dogs, fast food. Does not plan meals and her hisband is not supportive of healthy eating. He is a little overweight and likes to eat junk. Physical Exam Const alert, oriented x3 and no apparent distress General Appearance: cooperative HEENT normocephalic and head/scalp atraumatic Eyes PERRL and EOMs intact bilaterally Neck supple and No nodes Resp normal air movement and clear to auscultation bilaterally Cardio regular rate and regular rhythm GI soft to palpation, non-tender and non-distended Extremity General Extremity: edema Skin Skin Narrative: BLE edema, medial R thigh is area of most redness, induration, warmth. Mild tenderness. Neuro CN's II-XII intact bilaterally Lab / Micro Data Attestation: I reviewed the patient's lab results. 04/06/24 09:50 04/06/24 06:35 Labs: Laboratory Results - last 24 hr 04/05/24 20:54: Vancomycin Trough 18.5 H 04/06/24 06:35: WBC Cancelled, Corrected WBC Cancelled, RBC Cancelled, Hgb Cancelled, Hct Cancelled, MCV Cancelled, MCH Cancelled, MCHC Cancelled, RDW Std Deviation Cancelled, RDW Coeff of Rani Cancelled, Plt Count Cancelled, MPV Cancelled, Immature Gran % (Auto) Cancelled, Neut % (Auto) Cancelled, Lymph % (Auto) Cancelled, Burt % (Auto) Cancelled, Eos % (Auto) Cancelled, Baso % (Auto) Cancelled, Absolute Neuts (auto) Cancelled, Absolute Lymphs (auto) Cancelled, Total Counted Cancelled, Neutrophils % (Manual) Cancelled, Band Neutrophils % Cancelled, Lymphocytes % (Manual) Cancelled, Monocytes % (Manual) Cancelled, Eosinophils % (Manual) Cancelled, Basophils % (Manual) Cancelled, Metamyelocytes % Cancelled, Myelocytes % Cancelled, Promyelocytes % Cancelled, Blast Cells % Cancelled, Plasma Cell % (Manual) Cancelled, Other Cells % Cancelled, Nucleated RBC % Cancelled, Nucleated RBCs/100 WBC Cancelled, Differential Comment Cancelled, Diff Path Review Cancelled, Hypersegmented Neuts Cancelled, Atypical Lymphocytes Cancelled, Reactive Lymphocytes Cancelled, Smudge Cells Cancelled, Toxic Granulation Cancelled, Toxic Vacuolation Cancelled, Dohle Bodies Cancelled, Megan Rods Cancelled, Platelet Estimate Cancelled, Plt Morphology Comment Cancelled, RBC Morphology Cancelled 04/06/24 06:35: RBC Morphology Cancelled, Polychromasia Cancelled, Hypochromasia Cancelled, Basophilic Stippling Cancelled, Anisocytosis Cancelled, Microcytosis Cancelled, Macrocytosis Cancelled, Spherocytes Cancelled, Sickle Cells Cancelled, Target Cells Cancelled, Tear Drop Cells Cancelled, Ovalocytes Cancelled, Stomatocytes Cancelled, Galindo-[place] Bodies Cancelled, Janette Cells Cancelled, Bite Cells Cancelled, Crenated Cell Cancelled, Acanthocytes (Spur) Cancelled, Rouleaux Cancelled, Schistocytes Cancelled, Sodium 138, Potassium 4.1, Chloride 106, Carbon Dioxide 27.0, Anion Gap 5, BUN 13, Creatinine 0.72, Estim Creat Clear Calc 172.27, Est GFR (MDRD) Af Amer 108, Est GFR (MDRD) Non-Af 89, BUN/Creatinine Ratio 18.1, Glucose 98, Calcium 9.0 04/06/24 09:50: WBC 4.9, RBC 4.56, Hgb 12.0, Hct 39.7, MCV 87.1, MCH 26.3 L, MCHC 30.2 L, RDW Std Deviation 49.1 H, RDW Coeff of Rani 15.5 H, Plt Count 140 L, MPV 9.5, Immature Gran % (Auto) 1.000 H, Neut % (Auto) 75.6 H, Lymph % (Auto) 12.2 L, Burt % (Auto) 10.8 H, Eos % (Auto) 0.2, Baso % (Auto) 0.2, Absolute Ne uts (auto) 3.7, Absolute Lymphs (auto) 0.60 L, Nucleated RBC % 0 Imaging Radiology Impression Venous Doppler Study 04/05/24 10:55 Interpretation Summary Deep veins of the bilateral lower extremities are patent and compressible segmentally. There is no evidence of bilateral lower extremity deep vein thrombosis. The bilateral great saphenous veins appear patent and compressible segmentally. Ordering Physician: Rubin Hadley Referring Physician: Helena Crews Performed By: Minor Antonio, RVT
[2024-04-06] MEDS: Ceftriaxone 2 GM in 0.9% Normal Saline (50mL MB+) 50 ML IV (18:40)
[2024-04-06] MEDS: 0.9% Saline Lock 10 ML Syringe IV (18:47)
[2024-04-06 23:30] VITALS: BP 103/49; PULSE 65; RESP 18; TEMP 36.9; O2SAT 95
[2024-04-07 05:54] VITALS: BP 161/85; PULSE 66; RESP 18; TEMP 36.2; O2SAT 95
[2024-04-07 07:31] LABS: Absolute Lymphocyte Count 1.06 X10^3/uL (0.83-4.51); Basophil# 0.03 X10^3/uL; Basophil% 0.4 % (0-1); Hematocrit 40.7 % (37-47); Hemoglobin 12.7 g/dL (12.0-15.0); Lymphocyte # 1.06 X10^3/ul (0.83-4.51); Lymphocyte % 15.1 % (19-41); Mean Corp Hgb Conc 31.2 g/dL (32-36); Mean Corpuscular Hgb 26.6 pg (27.0-32.0); Mean Corpuscular Volume 85.3 fL (81-99); Mean Platelet Vol. 9.8 fl (6.2-12.0); Monocyte% 11.4 % (0-10); NRBC Flagged by Analyzer 0 % (0-5); Neutrophil # 5.03 X10^3/uL (2.7-7.7); Neutrophil % 71.7 % (47-70); Platelet Count 191 K/mm3 (150-450); RBC Distribution Width CV 15.1 % (11.6-14.6); RBC Distribution Width SD 47.2 fl (35.1-43.9); Red Blood Count 4.77 M/mm3 (4.2-5.4)
[2024-04-07] MEDS: Pantoprazole Sodium 40 MG Tablet PO (07:49)
[2024-04-07] MEDS: Venlafaxine XR 75 MG Capsule 225 MG PO (07:49)
[2024-04-07] MEDS: Lactobacillis Acidophilus 2 CAP PO ×2 (07:49→21:32)
[2024-04-07] MEDS: Aspirin E.C. 81 MG Tablet PO (07:49)
[2024-04-07] MEDS: Cholecalciferol (VIT D3) 25 MCG TABLET (1,000 UNITS) PO (07:50)
[2024-04-07] MEDS: Ascorbic Acid 500 MG Tablet 1000 MG PO ×2 (07:50→18:06)
[2024-04-07] MEDS: Lisinopril 20 MG Tablet PO (07:50)
[2024-04-07] MEDS: Nystatin Powder 15gm Bottle 1 APPLIC TOPICAL ×2 (07:51→21:32)
[2024-04-07 08:01] LABS: Anion Gap 5 (5-15); BUN 14 mg/dL (7-18); BUN/Creat Ratio 15.7 RATIO (10-20); Calcium,Total 9.6 mg/dL (8.5-10.1); Chloride 103 mmol/L (98-107); Creatinine, Serum 0.89 mg/dL (0.55-1.02); EST Glomerular Filtration Rate 69 mL/min (>60); Est Glom Filt Rate - Afr Amer 84 mL/min (>60); Estimated Creatinine Clearance 139.37 ml/min; Glucose 115 mg/dL (74-106); Potassium 4.2 mmol/L (3.5-5.1); Sodium Level 135 mmol/L (136-145)
[2024-04-07] MEDS: guaiFENesin 600 MG Tablet PO ×2 (08:13→21:32)
[2024-04-07] MEDS: Acetaminophen 325 MG Tablet 650 MG PO (08:13)
[2024-04-07 10:00] VITALS: BP 146/77; PULSE 64; RESP 16; TEMP 36.6; O2SAT 96
--- NOTE | 2024-04-07 10:06 | PN.HOSP_ITS ---
Subjective Subjective White count has completely resolved and blood cultures are negative. Redness still remains about the same Objective Data Objective Data Vital Signs: Vital Signs Temp Pulse Resp BP Pulse Ox O2 Del Method 97.1 F L 66 18 161/85 H 95 CPAP 04/07/24 05:54 04/07/24 05:54 04/07/24 05:54 04/07/24 05:54 04/07/24 05:54 04/07/24 05:54 Oxygen Delivery Method CPAP Weight: 500 lb 14.244 oz Body Mass Index (BMI) 83.3 Intake & Output: Intake and Output for Last 24 Hours 04/06/24 04/07/24 04/08/24 03:59 03:59 03:59 Intake Total 2239 / 0 1914.17 / 1914. Balance 2239 / 2239 1914. / Lab / Micro Data 04/07/24 06:39 04/07/24 06:39 Labs: Laboratory Results - last 24 hr 04/06/24 09:50: WBC 4.9, RBC 4.56, Hgb 12.0, Hct 39.7, MCV 87.1, MCH 26.3 L, MCHC 30.2 L, RDW Std Deviation 49.1 H, RDW Coeff of Rani 15.5 H, Plt Count 140 L, MPV 9.5, Immature Gran % (Auto) 1.000 H, Neut % (Auto) 75.6 H, Lymph % (Auto) 12.2 L, [place] % (Auto) 10.8 H, Eos % (Auto) 0.2, Baso % (Auto) 0.2, Absolute Neuts (auto) 3.7, Absolute Lymphs (auto) 0.60 L, Nucleated RBC % 0 04/07/24 06:39: WBC 7.0, RBC 4.77, Hgb 12.7, Hct 40.7, MCV 85.3, MCH 26.6 L, MCHC 31.2 L, RDW Std Deviation 47.2 H, RDW Coeff of Rani 15.1 H, Plt Count 191, MPV 9.8, Immature Gran % (Auto) 1.400 H, Neut % (Auto) 71.7 H, Lymph % (Auto) 15.1 L, [place] % (Auto) 11.4 H, Eos % (Auto) 0.0, Baso % (Auto) 0.4, Absolute Neuts (auto) 5.0, Absolute Lymphs (auto) 1.06, Nucleated RBC % 0, Sodium 135 L, Potassium 4.2, Chloride 103, Carbon Dioxide 27.0, Anion Gap 5, BUN 14, Creatinine 0.89, Estim Creat Clear Calc 139.37, Est GFR (MDRD) Af Amer 84, Est GFR (MDRD) Non-Af 69, BUN/Creatinine Ratio 15.7, Glucose 115 H, Calcium 9.6 Micro: Microbiology 04/04/24 20:55 Blood Culture (Wb) - Anticubital Left Blood Culture - Preliminary No growth in 48 hours. 04/04/24 20:55 Blood Culture (Wb) - Port Blood Culture - Preliminary No growth in 48 hours. Physical Exam Narrative General: Alert, Oriented x3, Cooperative, No apparent distress, super morbidly obese HEENT: Atraumatic, PERRLA, EOMI, Normocephalic Oral: Moist Mucosa Neck: Supple, No JVD Lungs: Diminished due to body habitus, Normal air movement, No rhonchi, No wheeze, No rales Cardiovascular: Regular rate, Regular Rhythm, Normal S1, Normal S2, No murmurs, limited due to body habitus Abdomen: Soft, Non Tender, Non-Distended, No Hepato-splenomegaly Extremities: Bilateral lower extremity lymphedema, Capillary Refill Less than 3 Seconds Skin: Right medial thigh redness with slight tenderness, no significant left thigh redness Musculoskeletal: No Tenderness to Palpation of Joints or Extremities Neurological: No focal neurological deficits, Motor Exam 5/5 strength throughout, Sensory exam intact to light touch and pain Psych/Mental Status: Normal Affect, Appropriate Assessment & Plan Assessment/Plan (1) Cellulitis: QUALIFIERS: Site of cellulitis: extremity Site of cellulitis of extremity: lower extremity Laterality: unspecified laterality Qualified Code(s): L03.119 - Cellulitis of unspecified part of limb (2) Lymphedema associated with obesity: (3) Super obesity: (4) Headache: QUALIFIERS: Headache type: tension-type Headache chronicity pattern: acute headache Intractability: not intractable Qualified Code(s): G44.209 - Tension-type headache, unspecified, not intractable (5) PLMD (periodic limb movement disorder): PLAN: Plan 1. Right lower extremity cellulitis with bilateral chronic lower extremity lymphedema ? Continue with IV antibiotics ? Blood cultures are negative ? No sepsis due to insurance ? Will consult infectious disease as she has needed prolonged antibiotics on her previous hospitalizations for lower extremity cellulitis ?We will check a MRSA screen and if negative discontinue vancomycin 2. Essential HTN/super morbidly obese ? Blood pressure stable ? Continue with her home blood pressure medication ? Continue with aspirin ? Would benefit from lifestyle modification 3. Iron deficiency anemia ? Stable ? Continue with iron replacement 4. GERD ? Stable ? Continue with PPI 5. Anxiety/depression ? Stable ? Continue with Effexor DVT: Lovenox Charges/Coding Visit Charges Inpatient E&M: 01482 Subs Hosp L2
[2024-04-07] MEDS: Acyclovir 800 MG Tablet PO ×3 (10:21→21:32)
[2024-04-07] MEDS: Ceftriaxone 2 GM in 0.9% Normal Saline (50mL MB+) 50 ML IV (10:21)
[2024-04-07] MEDS: 0.9% Saline Lock 10 ML Syringe IV (10:22)
[2024-04-07] MEDS: Zinc Sulfate 50 mg zinc (220 mg) ORAL capsule PO (10:33)
[2024-04-07] MEDS: Ferrous Sulfate 325 MG Tablet PO (10:33)
[2024-04-07 14:00] VITALS: BP 144/87; PULSE 86; RESP 16; TEMP 37.1; O2SAT 93
[2024-04-07 14:49] LABS: M R Staph aureus DNA By PCR Negative (Negative); Probe Check PASS; Specimen Processing Control PASS
[2024-04-07 21:22] VITALS: BP 142/90; PULSE 67; RESP 16; TEMP 36.3; O2SAT 97
[2024-04-08 02:40] VITALS: BP 138/74; PULSE 62; RESP 20; TEMP 36.2; O2SAT 98
[2024-04-08 09:04] VITALS: BP 150/92; PULSE 68; RESP 18; TEMP 36.5; O2SAT 93
[2024-04-08] MEDS: Aspirin E.C. 81 MG Tablet PO (09:18)
[2024-04-08] MEDS: Cholecalciferol (VIT D3) 25 MCG TABLET (1,000 UNITS) PO (09:18)
[2024-04-08] MEDS: Ascorbic Acid 500 MG Tablet 1000 MG PO (09:18)
[2024-04-08] MEDS: guaiFENesin 600 MG Tablet PO (09:19)
[2024-04-08] MEDS: Lisinopril 20 MG Tablet PO (09:19)
[2024-04-08] MEDS: Zinc Sulfate 50 mg zinc (220 mg) ORAL capsule PO (09:19)
[2024-04-08] MEDS: Nystatin Powder 15gm Bottle 1 APPLIC TOPICAL (09:19)
[2024-04-08] MEDS: Pantoprazole Sodium 40 MG Tablet PO (09:19)
[2024-04-08] MEDS: Lactobacillis Acidophilus 2 CAP PO (09:19)
[2024-04-08] MEDS: Venlafaxine XR 75 MG Capsule 225 MG PO (09:20)
[2024-04-08] MEDS: 0.9% Saline Lock 10 ML Syringe IV (09:20)
[2024-04-08] MEDS: Ceftriaxone 2 GM in 0.9% Normal Saline (50mL MB+) 50 ML IV (09:20)
--- NOTE | 2024-04-08 11:19 | DCINST_ITS ---
Discharge Instructions Diet Discharge Diet: Low fat / Low cholesterol Activity Discharge Activity: Return to Normal Activity Dressing / Incision Call your doctor if you observe: Fever of 101 or Higher, Shortness of breath, Dizziness, Fainting spells, Swelling in the ankles, Chest pain and Increased palpitations (irregular heartbeat) Follow Up Care Test Results: Test results from this visit will be discussed in further detail at your follow- up appointment, if applicable. Discharge Plan Admission Admit Date/Time: 04/04/24 22:22 Attending Provider: Rubin Hadley Primary Care Provider: Helena Crews Consulting Providers: Calderon Tom; Wander Garcia Discharge Orders/Prescriptions Prescriptions: New cefdinir 300 mg capsule 300 mg PO Q12H Qty: 14 0RF Rx Instructions: Start 04/09 Continued acetaminophen 500 mg capsule 1,000 mg PO Q6H PRN (Reason: Pain) aspirin [Adult Low Dose Aspirin] 81 mg tablet,delayed release (DR/EC) 81 mg PO DAILY ferrous sulfate [FeroSul] 325 mg (65 mg iron) Tablet 325 mg PO DAILY@1200 Qty: 30 0RF venlafaxine [Effexor XR] 75 mg capsule,extended release 24hr 225 mg PO DAILY Qty: 90 0RF Rx Instructions: take 3 capsules every AM omeprazole 40 mg capsule,delayed release(DR/EC) 40 mg PO DAILY Patient Comments: TAKE 1 CAPSULE BY MOUTH ONCE DAILY lisinopril 10 mg tablet 20 mg PO DAILY Patient Comments: TAKE 1 TABLET BY MOUTH ONCE DAILY nystatin [Nyamyc] 100,000 unit/gram Powder 1 applic topical BID 30 Days Qty: 60 0RF Protocol: *Topical Application Instructions APPLICATION INSTRUCTIONS: apply to skin folds, particularly BLE cholecalciferol (vitamin D3) 1 tab PO DAILY valacyclovir 1 gram tablet 2,000 mg PO BID PRN (Reason: cold sore) Patient Comments: x1 day Referrals / Follow Up: Helena Crews PA [Primary Care Provider] - Within 1 Week Disposition Disposition (needs filled in before D/C Order can be placed): Home, Self Care
[2024-04-08] MEDS: Ferrous Sulfate 325 MG Tablet PO (11:40)
--- NOTE | 2024-04-08 12:00 | CASEMGMT ---
RN CM into pt room, pt lying in bed in no distress. Pt denies any concerns or needs going home.
--- NOTE | 2024-04-08 14:27 | PCM.DC.SUM ---
Providers Date of Admission: 04/04/24 Primary Care Physician: VJ Maloney Consultations 04/06/24 14:49 Consult: Infectious Disease Routine Consulting Provider: Wander Garcia Reason for Consult: recurrent RLE cellulitis EMERGENT Consult: No MD Notified: Yes Date Notified: 04/06/24 Time Notified: 14:49 Method of Notification: Text Reason For Visit: BILATERAL LOWER EXTREMITY CELLULITIS IN SETTING OF Diagnosis Discharge Diagnosis (1) Cellulitis: Status: Acute Code(s): L03.90 - Cellulitis, unspecified Qualifiers: Site of cellulitis: extremity Site of cellulitis of extremity: lower extremity Laterality: unspecified laterality Qualified Code(s): L03.119 - Cellulitis of unspecified part of limb (2) Lymphedema associated with obesity: Status: Acute Code(s): I89.0 - Lymphedema, not elsewhere classified; E66.9 - Obesity, unspecified (3) Super obesity: Status: Acute Code(s): E66.9 - Obesity, unspecified (4) Headache: Status: Acute Code(s): R51.9 - Headache, unspecified Qualifiers: Headache type: tension-type Headache chronicity pattern: acute headache Intractability: not intractable Qualified Code(s): G44.209 - Tension-type headache, unspecified, not intractable (5) PLMD (periodic limb movement disorder): Status: Acute Code(s): G47.61 - Periodic limb movement disorder Medications at Discharge Home Medications acetaminophen 500 mg capsule 1,000 mg PO Q6H PRN Pain 07/11/21 aspirin 81 mg tablet,delayed release (Adult Low Dose Aspirin) 81 mg PO DAILY blood thinner 07/11/21 ferrous sulfate 325 mg (65 mg iron) tablet (FeroSul) 325 mg PO DAILY@1200 iron #30 tabs 08/01/21 venlafaxine 75 mg capsule,extended release 24 hr (Effexor XR) 225 mg (3 x 75 mg) PO DAILY depression #90 caps 09/03/21 lisinopril 10 mg tablet 20 mg PO DAILY blood pressure 07/24/23 omeprazole 40 mg capsule,delayed release 40 mg PO DAILY stomach 07/24/23 nystatin 100,000 unit/gram topical powder (Nyamyc) 1 applic topical BID yeast infection 30 days #60 grams 07/31/23 cholecalciferol (vitamin D3) 1 tab PO DAILY supplement 04/04/24 valacyclovir 1 gram tablet 2,000 mg PO BID PRN cold sore 04/07/24 cefdinir 300 mg capsule 300 mg PO Q12H #14 caps 04/08/24 Hospital Course Operations None Procedures None Summary of Care Provided Minutes Spent on Discharge: 35 Hospital Course: Per HPI: PHILLIP ENGLAND, is a 54 F with a past medical history of essential hypertension, super morbid obesity; with BMI of 87.2 this admission, obesity hypoventilation syndrome; on supplemental oxygen, MIGUEL; on CPAP, bilateral lower extremity lymphedema, history of stage III sacral decubitus ulcer, history of dilatation of the ascending aorta, remote history of tobacco abuse (quit 30 years ago), asthma, ESTEFANIA, history of cholecystectomy, history of foot surgery, history of hip surgery, GERD, IBS, depression with anxiety, osteoarthritis and history of admission here from August 18, 2023 to August 21, 2023 for treatment of bilateral lower extremity cellulitis requiring infectious disease consult with Dr. Garcia who presents to [facility] ER complaining of bilateral lower extremity redness and swelling. Ms. England reports her symptoms began approximately 2 to 3 days prior to admission with a gradual onset of progressively worsening lower extremity redness and swelling typical of her previous bouts of lower extremity cellulitis. She also admits to fever of 100.2 ?F and an associated tension type headache that is persistent but she denies being bedridden, calf tenderness, varicose veins, recent surgery or history of DVT. In the ER she was diagnosed with recurrent bilateral lower extremity cellulitis in the setting of chronic lower extremity lymphedema with fever and leukocytosis of 15.7 present on admission consistent with suspected SIRS and she was then admitted to the general medical floor for ongoing care for stay that is expected to be greater than 2 midnights. Hospital Course: 1. Right lower extremity cellulitis with bilateral chronic lower extremity lymphedema?54-year-old female whose had recurrent cellulitis in the past presents to the hospital with cellulitis in the right lower extremity. Blood cultures were negative, and infectious disease were both consulted secondary to the fact that she has had recurrent issues. They brought her down to [facility] and recommended discharge on cefdinir 300 mg p.o. twice daily for another week. Unfortunately she does not wear her lymphedema boots consistently and apparently her PCP had recommended that she wash with Hibiclens which she does not like doing. Given the improvement and resolution of her white count I discussed with her the plan for possible discharge today she expressed understanding risk-benefit of going home and would like to go home today. 2. Essential HTN, super morbid obesity, iron deficiency anemia, GERD, anxiety, depression are all chronic medical conditions which complicate her care. Her home medications were continued where appropriate Physical Exam Narrative General: Alert, Oriented x3, Cooperative, No apparent distress, super morbidly obese HEENT: Atraumatic, PERRLA, EOMI, Normocephalic Oral: Moist Mucosa Neck: Supple, No JVD Lungs: Diminished due to body habitus, Normal air movement, No rhonchi, No wheeze, No rales Cardiovascular: Regular rate, Regular Rhythm, Normal S1, Normal S2, No murmurs, limited due to body habitus Abdomen: Soft, Non Tender, Non-Distended, No Hepato-splenomegaly Extremities: Bilateral lower extremity lymphedema, Capillary Refill Less than 3 Seconds Skin: Right medial thigh redness with slight tenderness, no significant left thigh redness Musculoskeletal: No Tenderness to Palpation of Joints or Extremities Neurological: No focal neurological deficits, Motor Exam 5/5 strength throughout, Sensory exam intact to light touch and pain Psych/Mental Status: Normal Affect, Appropriate Weight / BMI Weight Weight: 500 lb 14.244 oz Body Mass Index (BMI) 83.3 ABG / Lab / Microbiology Data 04/07/24 06:39 04/07/24 06:39 Laboratory: Laboratory Results - last 24 hr 04/07/24 13:20: MRSA (PCR) Negative Microbiology: Microbiology 04/04/24 20:55 Blood Culture (Wb) - Anticubital Left Blood Culture - Preliminary No growth in 48 hours. 04/04/24 20:55 Blood Culture (Wb) - Port Blood Culture - Preliminary No growth in 48 hours. D/C Instructions Discharge Diet: Low fat / Low cholesterol Call your doctor if you observe: Fever of 101 or Higher, Shortness of breath, Dizziness, Fainting spells, Swelling in the ankles, Chest pain and Increased palpitations (irregular heartbeat) Meaningful Use Info Meaningful Use Meaningful Use Diagnoses (Choose all that apply): None applicable Ischemic Stroke Statin Dosing Therapy Reference: STATIN DOSE THERAPY REFERENCE: * Patients > 75 years receive moderate or high dose statin therapy. * Patients 75 years or YOUNGER should receive HIGH intensity statin dose unless contraindicated. You will be required to document reason for non-treatment if statin daily dose does not meet guidelines. HIGH DOSE STATIN THERAPY DAILY Atorvastatin > than or = to 40 mg Rosuvastatin > than or = to 20 mg Amlodipine + Atorvastatin > than or = to 2.5/40 mg Ezetimibe + Simvastatin 10/80 mg Simvastatin 80mg Discharge Plan Admission Admit Date/Time: 04/04/24 22:22 Attending Provider: Rubin Hadley Primary Care Provider: Helena Crews Consulting Providers: Calderon Tom; Wander Garcia Discharge Orders/Prescriptions Prescriptions: New cefdinir 300 mg capsule 300 mg PO Q12H Qty: 14 0RF Rx Instructions: Start 04/09 Continued acetaminophen 500 mg capsule 1,000 mg PO Q6H PRN (Reason: Pain) aspirin [Adult Low Dose Aspirin] 81 mg tablet,delayed release (DR/EC) 81 mg PO DAILY ferrous sulfate [FeroSul] 325 mg (65 mg iron) Tablet 325 mg PO DAILY@1200 Qty: 30 0RF venlafaxine [Effexor XR] 75 mg capsule,extended release 24hr 225 mg PO DAILY Qty: 90 0RF Rx Instructions: take 3 capsules every AM omeprazole 40 mg capsule,delayed release(DR/EC) 40 mg PO DAILY Patient Comments: TAKE 1 CAPSULE BY MOUTH ONCE DAILY lisinopril 10 mg tablet 20 mg PO DAILY Patient Comments: TAKE 1 TABLET BY MOUTH ONCE DAILY nystatin [Nyamyc] 100,000 unit/gram Powder 1 applic topical BID 30 Days Qty: 60 0RF Protocol: *Topical Application Instructions APPLICATION INSTRUCTIONS: apply to skin folds, particularly BLE cholecalciferol (vitamin D3) 1 tab PO DAILY valacyclovir 1 gram tablet 2,000 mg PO BID PRN (Reason: cold sore) Patient Comments: x1 day Referrals / Follow Up: Helena Crews PA [Primary Care Provider] - Within 1 Week Disposition Disposition (needs filled in before D/C Order can be placed): Home, Self Care Charges/Coding Visit Charges Inpatient E&M: 19321 Disch Hosp >30min
[2024-04-08 15:38] VITALS: BP 140/78; PULSE 97; RESP 16; TEMP 36.7; O2SAT 96
== END 2024-04-08 15:48 | disposition home or self-care (01) | DRG 603 ==
LOC: ED 20:40 → MS3 22:52
PROVIDERS: Admitting Provider Internal Medicine; Emergency Provider Emergency Medicine; PCP Physician Assistant; Visit Provider Family Medicine
DX: L03.115 Cellulitis of right lower limb (principal); E66.2 Morbid (severe) obesity with alveolar hypoventilation; Z68.45 Body mass index [BMI] 70 or greater, adult; D50.9 Iron deficiency anemia, unspecified; I10 Essential (primary) hypertension; J45.909 Unspecified asthma, uncomplicated; K58.9 Irritable bowel syndrome, unspecified; F41.8 Other specified anxiety disorders; K21.9 Gastro-esophageal reflux disease without esophagitis; M19.90 Unspecified osteoarthritis, unspecified site; I89.0 Lymphedema, not elsewhere classified; Z87.891 Personal history of nicotine dependence; L03.116 Cellulitis of left lower limb; G47.61 Periodic limb movement disorder; G44.209 Tension-type headache, unspecified, not intractable; Z79.82 Long term (current) use of aspirin; Z90.49 Acquired absence of other specified parts of digestive tract; Z99.89 Dependence on other enabling machines and devices
CPT/HCPCS: 36415; 80048; 80053; 80202; 83605; 85025; 87040; 87641; 93970; 99285; J7040; J7050; A4216; J0696

== ENCOUNTER 2024-05-04 17:54 | Inpatient (IN) | payer BC, SELFPAY ==
[2024-05-04 17:56] VITALS: BP 126/76; PULSE 107; RESP 24; TEMP 37.1; O2SAT 94
[2024-05-04 17:58] VITALS: BP 126/76; PULSE 107; RESP 24; TEMP 37.1; O2SAT 94; BMI 82.7
--- NOTE | 2024-05-04 18:26 | EDS_ITS ---
HPI History of Present Illness Chief Complaint: Wound Detail of Chief Complaint: Pain and redness to right upper thigh Informant: patient Narrative Narrative: Patient presents to the emergency department with pain and redness to right upper thigh that started today. Patient has history of cellulitis to the right upper thigh that required admission for a week last month. Patient describes fever up to 100.7 at home. She has had chills. She describes a headache. Patient has been seen by Dr. Garcia during last admission and currently is on cefdinir and supposed to be taking it twice a day but only took it once a day for the last 4 days because it was given her diarrhea. [facility] Medical History Abnormal echocardiogram Anxiety Ascending aorta dilatation Asthma Depression Failure of outpatient treatment GERD without esophagitis Heel spur Hyperglycemia IBS (irritable bowel syndrome) Insomnia Osteoarthritis (arthritis due to wear and tear of joints) Home Medications ?Medication ?Instructions ?Recorded ?Last Taken ?Type acetaminophen 500 mg capsule 1,000 mg PO Q6H PRN Pain 07/11/21 Unknown History aspirin 81 mg tablet,delayed 81 mg PO DAILY blood thinner 07/11/21 Unknown History release (Adult Low Dose Aspirin) ferrous sulfate 325 mg (65 mg 325 mg PO DAILY@1200 iron #30 tabs 08/01/21 Unknown Rx iron) tablet (FeroSul) venlafaxine 75 mg capsule,extended 225 mg (3 x 75 mg) PO DAILY 09/03/21 Unknown Rx release 24 hr (Effexor XR) depression #90 caps lisinopril 10 mg tablet 20 mg PO DAILY blood pressure 07/24/23 Unknown History omeprazole 40 mg capsule,delayed 40 mg PO DAILY stomach 07/24/23 Unknown History release nystatin 100,000 unit/gram topical 1 applic topical BID yeast 07/31/23 Unknown Rx powder ([facility]) infection 30 days #60 grams cholecalciferol (vitamin D3) 1 tab PO DAILY supplement 04/04/24 Unknown History valacyclovir 1 gram tablet 2,000 mg PO BID PRN cold sore 04/07/24 Unknown History cefdinir 300 mg capsule 300 mg PO Q12H #14 caps 04/08/24 Unknown Rx Allergy/AdvReac Type Severity Reaction Status Date / Time adhesive tape AdvReac Unknown Other Verified 04/04/24 19:07 Family History Mother Alzheimer's dementia Surgical History H/O foot surgery History of cholecystectomy History of hip surgery Social History household members: spouse housing: house number of children: 1 current occupational status: employed 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 For lunch she has a bowl of soup and crackers which she takes to work. Sometimes has pretzels for a snack. Eats lunch at 12:30- 1 and does not get home until 7 PM and then she is starved. Her sometimes cooks and it is usually not healthy and may include pizza, hot dogs, fast food. Does not plan meals and her hisband is not supportive of healthy eating. He is a little overweight and likes to eat junk. ROS ROS ED Review of Systems ROS Unobtainable: other Constitutional Constitutional ED: Reports lethargy; Denies chills, fever(s), sweats or weight loss Eyes Eyes: Denies blurry vision, change in vision or diplopia ENT ENT ED: Denies rhinorrhea or sore throat Cardiovascular Cardiovascular: Denies chest pain, orthopnea or racing heartbeat Respiratory/Chest Respiratory/Chest: Denies cough, dyspnea, dyspnea on exertion, orthopnea or sputum Gastrointestinal Gastrointestinal: Denies abdominal pain, diarrhea, nausea or vomiting Genitourinary Genitourinary ED: Denies dysuria, hematuria or urinary frequency Musculoskeletal Musculoskeletal: Denies arthralgias, back pain, myalgias or neck pain Integumentary Reports other Details: Redness and swelling to right thigh ; Denies abscess, Abrasions or rash Neurologic Neurologic: Denies headache(s) or weakness Psychiatric Psychiatric: Denies anxiety, depression or suicidal thoughts Endocrine Endocrinology: Denies polydipsia, polyphagia or polyuria Hematologic/Lymphatic Hematologic/Lymphatic: Denies easy bleeding, easy bruising or lymphadenopathy Allergic/Immunologic Allergic/Immunologic ED: Denies mouth swelling, tongue swelling or urticaria EXAM Physical Exam Const Vital Signs: 05/04/24 17:56 05/04/24 17:58 05/04/24 18:58 Temperature 98.8 F 98.8 F 98 F Temperature Source Oral Oral Oral Pulse Rate 107 H 107 H 102 H Respiratory Rate 24 H 24 H 22 H Blood Pressure 126/76 H 126/76 H 126/76 H Blood Pressure Mean 92 92 92 Pulse Ox 94 94 98 Oxygen Delivery Method Room Air Room Air Room Air Positive well nourished and well developed General Appearance ED: well developed and NAD HEENT Reports TM's clear and moist mucous membranes normocephalic and atraumatic; Negative for trauma or tenderness Tympanic Membrane ED: Yes TM's clear Eyes PERRL and EOMs intact bilaterally General Eye ED: Negative for pale conjunctiva or scleral icterus Neck no lymphadenopathy, supple and no JVD General: Negative for tenderness Chest Wall inspection of chest normal and palpation of chest normal Chest: Negative for tenderness Resp normal respiratory effort and clear to auscultation bilaterally Effort and Inspection: Negative for respiratory distress or pain with movement Auscultation: Negative for rhonchi, wheezes or diminished lung sounds Cardio regular rate, regular rhythm, S1 normal heart sound, S2 normal heart sound and no murmurs Peripheral Pulses: pulses 2+ throughout GI normal to inspection, nondistended, normoactive bowel sounds, soft to palpation, non-tender, non-distended and no masses Back/Spine no CVA tenderness and no thoracic nor lumbar tenderness Extremity Extremity Narrative: Right thigh-patient has diffuse erythema involving the right thigh medially consistent with cellulitis. No tenderness about the knee with normal range of motion. No erythema around the knee. General Extremety ED: Negative for edema General Extremity: Negative for edema Neuro oriented x3, CN's II-XII intact bilaterally, no sensory deficits noted and gait normal Sensorium / Orientation: awake, alert, oriented to person, oriented to place and oriented to time Motor Exam: strength 5/5 throughout and strength abnormal Psych mental status grossly normal Skin no rashes or lesions noted and no wounds MDM MDM MDM Narrative Medical decision making narrative: Patient presents with redness to her right thigh and fever and chills. Patient has history of cellulitis. IV line established. Blood cultures obtained. CBC with differential white count of 19.2 with hemoglobin of 12.7 and platelet count of 160. Chemistries unremarkable. Lactate normal at 1.6. Patient was started on Zosyn and vancomycin IV. Case discussed with hospitalist will evaluate patient for admission. Lab Data Attestation: I reviewed the patient's lab results. Labs: Laboratory Results - last 24 hr 05/04/24 18:36 WBC 19.2 H RBC 4.65 Hgb 12.7 Hct 39.9 MCV 85.8 MCH 27.3 MCHC 31.8 L RDW Std Deviation 46.8 H RDW Coeff of Rani 15.0 H Plt Count 160 MPV 10.0 Immature Gran % (Auto) 0.800 Neut % (Auto) 94.7 H Lymph % (Auto) 1.5 L [place] % (Auto) 2.8 Eos % (Auto) 0.0 Baso % (Auto) 0.2 Absolute Neuts (auto) 18.2 H Absolute Lymphs (auto) 0.29 L Nucleated RBC % 0 Sodium 133 L Potassium 4.5 Chloride 100 Carbon Dioxide 26.0 Anion Gap 7 BUN 18 Creatinine 0.99 Estim Creat Clear Calc 124.61 Est GFR (MDRD) Af Amer 75 Est GFR (MDRD) Non-Af 62 BUN/Creatinine Ratio 18.2 Glucose 116 H Lactic Acid 1.6 Calcium 9.3 Discharge Plan Triage Chief Complaint: Wound ED Provider: Gume Collins Dx/Rx/DC Orders Clinical Impression: Cellulitis, Leukocytosis, Morbid obesity Prescriptions: No Action acetaminophen 500 mg capsule 1,000 mg PO Q6H PRN (Reason: Pain) aspirin [Adult Low Dose Aspirin] 81 mg tablet,delayed release (DR/EC) 81 mg PO DAILY ferrous sulfate [FeroSul] 325 mg (65 mg iron) Tablet 325 mg PO DAILY@1200 Qty: 30 0RF venlafaxine [Effexor XR] 75 mg capsule,extended release 24hr 225 mg PO DAILY Qty: 90 0RF Rx Instructions: take 3 capsules every AM omeprazole 40 mg capsule,delayed release(DR/EC) 40 mg PO DAILY Patient Comments: TAKE 1 CAPSULE BY MOUTH ONCE DAILY lisinopril 10 mg tablet 20 mg PO DAILY Patient Comments: TAKE 1 TABLET BY MOUTH ONCE DAILY nystatin [Nyamyc] 100,000 unit/gram Powder 1 applic topical BID 30 Days Qty: 60 0RF Protocol: *Topical Application Instructions APPLICATION INSTRUCTIONS: apply to skin folds, particularly BLE cholecalciferol (vitamin D3) 1 tab PO DAILY valacyclovir 1 gram tablet 2,000 mg PO BID PRN (Reason: cold sore) Patient Comments: x1 day cefdinir 300 mg capsule 300 mg PO Q12H Qty: 14 0RF Rx Instructions: Start 04/09 Primary Care Provider: Helena Crews Referrals: Helena Crews PA [Primary Care Provider] - Print Language: Guyanese Disposition Disposition: Acute Care Hospital [facility] [place] [facility]
[2024-05-04] MEDS: 0.9% Normal Saline (1000mL) 1,000 ML 150 ML IV (18:37)
[2024-05-04 18:46] LABS: Absolute Lymphocyte Count 0.29 X10^3/uL (0.83-4.51); Absolute Neutrophil Count 18.2 X10^3/uL (2.0-7.7); Basophil# 0.03 X10^3/uL; Basophil% 0.2 % (0-1); Hematocrit 39.9 % (37-47); Hemoglobin 12.7 g/dL (12.0-15.0); Lymphocyte # 0.29 X10^3/ul (0.83-4.51); Lymphocyte % 1.5 % (19-41); Mean Corp Hgb Conc 31.8 g/dL (32-36); Mean Corpuscular Hgb 27.3 pg (27.0-32.0); Mean Corpuscular Volume 85.8 fL (81-99); Monocyte# 0.53 X10^3/uL; Monocyte% 2.8 % (0-10); NRBC Flagged by Analyzer 0 % (0-5); Neutrophil # 18.17 X10^3/uL (2.7-7.7); Neutrophil % 94.7 % (47-70); POSITIVE DIFFERENTIAL YES; Platelet Count 160 K/mm3 (150-450); RBC Distribution Width SD 46.8 fl (35.1-43.9); Red Blood Count 4.65 M/mm3 (4.2-5.4); White Blood Count 19.2 K/mm3 (4.4-11.0)
[2024-05-04 18:58] VITALS: BP 126/76; PULSE 102; RESP 22; TEMP 36.6; O2SAT 98
[2024-05-04 18:59] LABS: Anion Gap 7 (5-15); BUN 18 mg/dL (7-18); BUN/Creat Ratio 18.2 RATIO (10-20); Calcium,Total 9.3 mg/dL (8.5-10.1); Chloride 100 mmol/L (98-107); Creatinine, Serum 0.99 mg/dL (0.55-1.02); EST Glomerular Filtration Rate 62 mL/min (>60); Est Glom Filt Rate - Afr Amer 75 mL/min (>60); Estimated Creatinine Clearance 124.61 ml/min; Glucose 116 mg/dL (74-106); Potassium 4.5 mmol/L (3.5-5.1); Sodium Level 133 mmol/L (136-145)
[2024-05-04] MEDS: Piperacil/Tazobactam 4.5 GM in 0.9% Normal Saline (100mL MB+) 100 ML IV (18:59)
[2024-05-04 19:20] LABS: Lactic Acid 1.6 mmol/L (0.4-1.9)
--- NOTE | 2024-05-04 19:20 | PCM.HP.STD ---
[facility] - General General Date of Admission: 05/04/24 Date of Service: 05/04/24 Chief Complaint: Fever and Right thigh redness and swelling. HPI Narrative PHILLIP GARCIA, is a 54 F with a past medical history of essential hypertension, super morbid obesity; with a BMI of 82.7 this admission, obesity hypoventilation syndrome; on supplemental oxygen, bilateral lower extremity lymphedema attributed to obesity, obstructive sleep apnea; on CPAP, history of asthma, history of ascending aortic dilatation, history of stage III decubitus ulcer, ESTEFANIA, history of ventilator associated pneumonia, remote history of tobacco abuse (quit 30 years ago), history of foot surgery, history of hip surgery, history of cholecystectomy, IBS; primarily with diarrhea and occasional constipation, periodic limb movement disorder, history depression with anxiety, osteoarthritis, history of admission here from August 18, 2023 to August 21, 2023 for treatment of bilateral lower extremity and cellulitis requiring infectious disease consult with Dr. Garcia and recent admission here from April 04, 2024 to April 08, 2024 for treatment of right lower extremity cellulitis with patient subsequently discharged on oral cefdinir which she was only taking once daily because she said it was causing her diarrhea is who now re-presents to [facility] ER complaining of right thigh redness and swelling. Ms. Garcia reports her symptoms began earlier today with increasing redness and swelling of her Right upper thigh with fever up to 100.7 ?F and chills. She also admits to an associated tension-type headache but she denies nausea, vomiting, chest pain, shortness of breath or diaphoresis. In the ER she was diagnosed with recurrent Right thigh cellulitis in the setting of failure of outpatient oral antibiotic treatment because patient took half the dose prescribed due to diarrhea with laboratory evidence of leukocytosis of 19.2 K present on admission and she was then admitted to the general medical floor for ongoing care for status expected to extend beyond 2 midnights. [facility] Medical History Hyperglycemia Failure of outpatient treatment Ascending aorta dilatation Abnormal echocardiogram IBS (irritable bowel syndrome) Depression Heel spur Osteoarthritis (arthritis due to wear and tear of joints) Asthma GERD without esophagitis Insomnia Anxiety Home Medications ?Medication ?Instructions ?Recorded ?Last Taken ?Type acetaminophen 500 mg capsule 1,000 mg PO Q6H PRN Pain 07/11/21 05/04/24 History aspirin 81 mg tablet,delayed 81 mg PO DAILY blood thinner 07/11/21 05/04/24 History release (Adult Low Dose Aspirin) ferrous sulfate 325 mg (65 mg 325 mg PO DAILY@1200 iron #30 tabs 08/01/21 05/04/24 Rx iron) tablet (FeroSul) venlafaxine 75 mg capsule,extended 225 mg (3 x 75 mg) PO DAILY 09/03/21 05/04/24 Rx release 24 hr (Effexor XR) depression #90 caps lisinopril 10 mg tablet 10 mg PO DAILY blood pressure 07/24/23 05/04/24 History omeprazole 40 mg capsule,delayed 40 mg PO DAILY stomach 07/24/23 05/04/24 History release nystatin 100,000 unit/gram topical 1 applic topical BID yeast 07/31/23 05/04/24 Rx powder ([facility]) infection 30 days #60 grams cholecalciferol (vitamin D3) 1 tab PO DAILY supplement 04/04/24 05/04/24 History valacyclovir 1 gram tablet 2,000 mg PO BID PRN cold sore 04/07/24 Unknown History clotrimazole 1 % topical cream 1 applic topical BID 05/04/24 05/04/24 History Allergy/AdvReac Type Severity Reaction Status Date / Time adhesive tape AdvReac Unknown Other Verified 04/04/24 19:07 Family History Mother Alzheimer's dementia Surgical History H/O foot surgery History of hip surgery History of cholecystectomy Social History household members: spouse housing: house number of children: 1 current occupational status: employed 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 For lunch she has a bowl of soup and crackers which she takes to work. Sometimes has pretzels for a snack. Eats lunch at 12:30- 1 and does not get home until 7 PM and then she is starved. Her sometimes cooks and it is usually not healthy and may include pizza, hot dogs, fast food. Does not plan meals and her hisband is not supportive of healthy eating. He is a little overweight and likes to eat junk. ROS ROS Narrative Review of systems: General: Patient admits to fever, chills and lethargy. HENT: Patient admits to generalized tension type headache but she denies stuffy nose, denies sore throat EYES: Denies changes in vision or discharge from eyes. Resp: Denies cough, denies shortness of breath Cardiac: Denies chest pain, palpitations or heart racing. GI: Patient admits to loose stools which she attributed to her oral cefdinir that she denies abdominal pain, nausea or vomiting. : Denies changes in urination Extremity: Patient admits to increasing redness and swelling of her Right upper thigh as per HPI. Musculoskeletal: Feels somewhat generally weak and unwell but she denies arthralgias or myalgias. Neuro: Patient admits to headache but she denies paresthesias or focal neurologic weakness. Heme: Denies any bleeding or bruising Skin: Denies rashes Psychiatric: No complaints voiced related uncontrolled depression or anxiety. Endocrine: No polyuria, polydipsia or polyphagia. The rest of the 14 point ROS was negative except for positives in HPI. Vital Signs Vital Signs Vital Signs: 05/04/24 17:56 05/04/24 17:58 05/04/24 18:58 Temperature 98.8 F 98.8 F 98 F Temperature Source Oral Oral Oral Pulse Rate 107 H 107 H 102 H Respiratory Rate 24 H 24 H 22 H Blood Pressure 126/76 H 126/76 H 126/76 H Blood Pressure Mean 92 92 92 Pulse Ox 94 94 98 Oxygen Delivery Method Room Air Room Air Room Air Weight Weight: 497 lb 2.278 oz Body Mass Index (BMI) 82.7 Physical Exam Const alert and oriented x3 Constitutional Narrative: Patient is morbidly obese and appears moderately distressed. General Appearance: cooperative HEENT normocephalic, head/scalp atraumatic, hearing grossly normal bilaterally and moist oral mucous membranes Eyes PERRL and EOMs intact bilaterally Neck no lymphadenopathy and supple Resp normal respiratory effort, no retractions, no use of accessory muscles and clear to auscultation bilaterally Cardio regular rate and regular rhythm GI normal to inspection, nondistended, normoactive bowel sounds, soft to palpation, non-tender and non-distended GI Narrative: Morbidly obese Extremity Extremity Narrative: Patient has diffuse erythema involving the right thigh medially consistent with cellulitis. Skin Skin Narrative: Patient has diffuse erythema involving the right thigh medially consistent with cellulitis. Neuro oriented x3, CN's II-XII intact bilaterally, moves all extremities and no focal motor deficits Sensorium / Orientation: awake, alert, oriented to person, oriented to place and oriented to time Speech: speech normal Psych Mood & Affect: anxious Results Medical Records Data Attestation: I reviewed the patient's medical records Lab / Micro Data Attestation: I reviewed the patient's lab results. 05/04/24 18:36 05/04/24 18:36 Labs: Laboratory Results - last 24 hr 05/04/24 18:36: WBC 19.2 H, RBC 4.65, Hgb 12.7, Hct 39.9, MCV 85.8, MCH 27.3, MCHC 31.8 L, RDW Std Deviation 46.8 H, RDW Coeff of Rani 15.0 H, Plt Count 160, MPV 10.0, Immature Gran % (Auto) 0.800, Neut % (Auto) 94.7 H, Lymph % (Auto) 1.5 L, [place] % (Auto) 2.8, Eos % (Auto) 0.0, Baso % (Auto) 0.2, Absolute Neuts (auto) 18.2 H, Absolute Lymphs (auto) 0.29 L, Nucleated RBC % 0, Sodium 133 L, Potassium 4.5, Chloride 100, Carbon Dioxide 26.0, Anion Gap 7, BUN 18, Creatinine 0.99, Estim Creat Clear Calc 124.61, Est GFR (MDRD) Af Amer 75, Est GFR (MDRD) Non-Af 62, BUN/Creatinine Ratio 18.2, Glucose 116 H, Lactic Acid 1.6, Calcium 9.3 Assessment & Plan Assessment/Plan (1) Cellulitis: QUALIFIERS: Laterality: right Site of cellulitis: extremity Site of cellulitis of extremity: lower extremity Qualified Code(s): L03.115 - Cellulitis of right lower limb (2) Leukocytosis: QUALIFIERS: Leukocytosis type: unspecified Qualified Code(s): D72.829 - Elevated white blood cell count, unspecified (3) Morbid obesity: (4) Lymphedema associated with obesity: (5) PLMD (periodic limb movement disorder): (6) IBS (irritable bowel syndrome): QUALIFIERS: Irritable bowel syndrome type: with both diarrhea and constipation Qualified Code(s): K58.2 - Mixed irritable bowel syndrome PLAN: Plan 1. Right thigh cellulitis in the setting of failure of outpatient oral antibiotic treatment because patient took half the dose prescribed due to diarrhea with laboratory evidence of leukocytosis of 19.2 K present on admission - Admit to general medical floor. Continue broad-spectrum antibiotics to cover nosocomial pathogens with IV vancomycin and IV Zosyn and await culture and sensitivity data. Check stool studies to evaluate for possible C. difficile or other infectious cause of diarrhea. Give Tylenol as needed pain or fever. Check hemoglobin A1c to screen for possible underlying diabetes with mild hyperglycemia of 116 mg/dL present on admission. Finally, we will consult Dr. Garcia of infectious diseases see this patient on rounds in the a.m. for further recommendations with help appreciated in advance. 2. Recent admission here from April 04, 2024 to April 08, 2024 for treatment of Right lower extremity cellulitis along with history of admission here from August 18, 2023 to August 21, 2023 for treatment of bilateral lower extremity and cellulitis requiring infectious disease consult with Dr. Garcia complicating #1 - Noted. 3. Super morbid obesity; with a BMI of 82.7 this admission with bilateral lower extremity lymphedema attributed to obesity compounding #1 & #2 - Weight loss will be recommended. 4. Obesity hypoventilation syndrome; on supplemental oxygen and obstructive sleep apnea; on CPAP adding to the pathology of #1 - #3 - Resume supplemental oxygen and nocturnal CPAP as previous. 5. Essential hypertension - Continue home regimen plus give as needed IV hydralazine for systolic blood pressure greater than 160 mmHg. 6. History of asthma - Stable at this time with no flare. Resume as needed nebulizers. 7. History of ascending aortic dilatation - Noted. 8. History of stage III decubitus ulcer - Noted. 9. ESTEFANIA - Stable with hemoglobin of 12.7 g/dL present on admission. 10. History of ventilator associated pneumonia - Noted. 11. Remote history of tobacco abuse (quit 30 years ago) - Noted. 12. History of foot surgery - Noted. 13. History of hip surgery - Noted. 14. History of cholecystectomy - Noted. 15. IBS; primarily with diarrhea and infrequent constipation - Stable. This may be the cause of loose stools outlined #1. 16. Periodic limb movement disorder - Stable. 17. History depression with anxiety - Continue home regimen as previous. 18. Osteoarthritis - Give Tylenol as needed. 19. DVT prophylaxis - Lovenox 40 mg SQ twice daily. Total time: Approximately 75 minutes. Charges/Coding Visit Charges Inpatient E&M: 58291 Init Hosp L3
[2024-05-04] MEDS: Vancomycin HCl 2,000 MG in 0.9% Normal Saline (500mL Bag) 500 ML 250 MG IV (19:52)
[2024-05-04 19:55] VITALS: BP 142/89; PULSE 93; RESP 20; TEMP 36.8; O2SAT 93
[2024-05-04] MEDS: Morphine 2 MG/ML Syringe IV (20:10)
--- NOTE | 2024-05-04 20:52 | PCM.RX.CS ---
Consult Antibiotic Management Pharmacy has been consulted to manage selected antibiotic: Vancomycin Type of Intervention Type of Consult: New start Suspected Infection Suspected Infection: Skin/Soft tissue Labs Labs: Sodium 133 mmol/L (136-145) L 05/04/24 18:36 Potassium 4.5 mmol/L (3.5-5.1) 05/04/24 18:36 Chloride 100 mmol/L (98-107) 05/04/24 18:36 Carbon Dioxide 26.0 mmol/L (21.0-32.0) 05/04/24 18:36 Anion Gap 7 (5-15) 05/04/24 18:36 BUN 18 mg/dL (7-18) 05/04/24 18:36 Creatinine 0.99 mg/dL (0.55-1.02) 05/04/24 18:36 Est GFR (MDRD) Af Amer 75 mL/min (>60) 05/04/24 18:36 Est GFR (MDRD) Non-Af 62 mL/min (>60) 05/04/24 18:36 BUN/Creatinine Ratio 18.2 RATIO (10-20) 05/04/24 18:36 Glucose 116 mg/dL (74-106) H 05/04/24 18:36 Goal Trough Goal Trough: 15-20 mcg/mL Pharmacy Plan for Drug Dosing Pharmacy Plan for Drug Dosing: NEW START IV VANCOMYCIN Consulting Physician: Dr. Cueva Indication: Cellulitis Goal Trough: 15-20 SrCr: 0.99 CrCl: 124 mL/min Comments: Patient had ED dose of 2000mg IV x1 05/04/24 @1952 Vancomycin Dose: 1500mg IV Q8hr to start 05/05/24 @0400 Pending Level: 05/05/24 @1930, prior to 4th total dose of vancomycin per protocol Pharmacy Service will continue to monitor and adjust dosing as required.
[2024-05-04 20:56] VITALS: BMI 85.3
[2024-05-04] MEDS: Acetaminophen 325 MG Tablet 650 MG PO (21:14)
[2024-05-04 21:25] VITALS: BP 151/70; PULSE 98; RESP 20; TEMP 38.2; O2SAT 99
[2024-05-04 21:47] LABS: Hemoglobin A1c 5.8 % (3.8-5.6)
[2024-05-04 22:18] VITALS: TEMP 37.8
[2024-05-04] MEDS: Nystatin Powder 15gm Bottle 1 APPLIC TOPICAL (22:24)
[2024-05-04] MEDS: Enoxaparin 40 MG/0.4 ML Syringe SC (22:31)
[2024-05-04] MEDS: Clotrimazole 1 APPLIC Tube TOPICAL (22:32)
[2024-05-04] MEDS: Zinc Sulfate 50 mg zinc (220 mg) ORAL capsule PO (22:35)
[2024-05-04] MEDS: Lactobacillis Acidophilus 2 CAP PO (22:35)
[2024-05-05 03:33] VITALS: BP 108/67; PULSE 95; RESP 20; TEMP 37.7; O2SAT 96
[2024-05-05] MEDS: Vancomycin HCl 1,500 MG in 0.9% Normal Saline (500mL Bag) 500 ML 250 MG IV ×2 (03:36→12:02)
[2024-05-05] MEDS: Acetaminophen 325 MG Tablet 650 MG PO ×3 (03:40→22:32)
[2024-05-05] MEDS: Piperacil/Tazobactam 3.375 GM in 0.9% Normal Saline (50mL MB+) 50 ML IV (06:18)
[2024-05-05] MEDS: 0.9% Normal Saline (1000mL) 1,000 ML 75 ML IV ×2 (06:24→23:38)
[2024-05-05 07:03] LABS: Absolute Lymphocyte Count 0.39 X10^3/uL (0.83-4.51); Absolute Neutrophil Count 10.3 X10^3/uL (2.0-7.7); Basophil# 0.01 X10^3/uL; Basophil% 0.1 % (0-1); Hematocrit 38.2 % (37-47); Hemoglobin 12.1 g/dL (12.0-15.0); Lymphocyte # 0.39 X10^3/ul (0.83-4.51); Lymphocyte % 3.6 % (19-41); Mean Corp Hgb Conc 31.7 g/dL (32-36); Mean Corpuscular Hgb 26.9 pg (27.0-32.0); Mean Corpuscular Volume 84.9 fL (81-99); Mean Platelet Vol. 9.4 fl (6.2-12.0); Monocyte# 0.19 X10^3/uL; Monocyte% 1.7 % (0-10); NRBC Flagged by Analyzer 0 % (0-5); Neutrophil # 10.26 X10^3/uL (2.7-7.7); Neutrophil % 93.8 % (47-70); POSITIVE DIFFERENTIAL YES; Platelet Count 146 K/mm3 (150-450); RBC Distribution Width CV 15.3 % (11.6-14.6); RBC Distribution Width SD 47.5 fl (35.1-43.9); White Blood Count 10.9 K/mm3 (4.4-11.0)
--- NOTE | 2024-05-05 07:31 | PN.HOSP_ITS ---
Reason for Visit Reason for Visit: Diagnoses Elevated white blood cell count, unspecified (05/04/24) Morbid (severe) obesity due to excess calories (05/04/24) Obesity, unspecified (05/04/24) Periodic limb movement disorder (05/04/24) Lymphedema, not elsewhere classified (05/04/24) Mixed irritable bowel syndrome (05/04/24) Cellulitis of right lower limb (05/04/24) Subjective Subjective Feeling okay. Objective Data Objective Data Vital Signs: Vital Signs Temp Pulse Resp BP Pulse Ox O2 Del Method 37.7 C H 95 20 H 108/67 96 Bi-pap 05/05/24 03:33 05/05/24 03:33 05/05/24 03:33 05/05/24 03:33 05/05/24 03:33 05/05/24 03:33 Oxygen Delivery Method Bi-pap Weight: 225.5 kg Body Mass Index (BMI) 85.3 Intake & Output: Intake and Output for Last 24 Hours 05/03/24 05/04/24 05/05/24 23:59 23:59 23:59 Intake Total 1203.75 / 1203.75 583.75 / 583.75 Output Total 500 / 500 Balance 703.75 / 703.75 583.75 / 583.75 Lab / Micro Data 05/05/24 06:51 05/05/24 06:51 Labs: Laboratory Results - last 24 hr 05/04/24 18:36: WBC 19.2 H, RBC 4.65, Hgb 12.7, Hct 39.9, MCV 85.8, MCH 27.3, M CHC 31.8 L, RDW Std Deviation 46.8 H, RDW Coeff of Rani 15.0 H, Plt Count 160, MPV 10.0, Immature Gran % (Auto) 0.800, Neut % (Auto) 94.7 H, Lymph % (Auto) 1.5 L, [place] % (Auto) 2.8, Eos % (Auto) 0.0, Baso % (Auto) 0.2, Absolute Neuts (auto) 18.2 H, Absolute Lymphs (auto) 0.29 L, Nucleated RBC % 0, Sodium 133 L, Potassium 4.5, Chloride 100, Carbon Dioxide 26.0, Anion Gap 7, BUN 18, Creatinine 0.99, Estim Creat Clear Calc 124.61, Est GFR (MDRD) Af Amer 75, Est GFR (MDRD) Non-Af 62, BUN/Creatinine Ratio 18.2, Glucose 116 H, Hemoglobin A1c 5.8 H, Lactic Acid 1.6, Calcium 9.3 05/05/24 06:51: WBC 10.9, RBC 4.50, Hgb 12.1, Hct 38.2, MCV 84.9, MCH 26.9 L, M CHC 31.7 L, RDW Std Deviation 47.5 H, RDW Coeff of Rani 15.3 H, Plt Count 146 L, MPV 9.4, Immature Gran % (Auto) 0.800, Neut % (Auto) 93.8 H, Lymph % (Auto) 3.6 L, [place] % (Auto) 1.7, Eos % (Auto) 0.0, Baso % (Auto) 0.1, Absolute Neuts (auto) 10.3 H, Absolute Lymphs (auto) 0.39 L, Nucleated RBC % 0 Micro: Microbiology 05/05/24 04:18 Stool Stool Lactoferrin - Final 05/05/24 04:18 Stool Clostridioides difficile (PCR) - Final Physical Exam Const alert and no apparent distress HEENT head/scalp atraumatic and moist oral mucous membranes Resp normal respiratory effort, no retractions, no use of accessory muscles and clear to auscultation bilaterally Cardio regular rate, regular rhythm, S1 normal heart sound and S2 normal heart sound GI normal to inspection, nondistended, normoactive bowel sounds and soft to palpation Extremity Extremity Narrative: Marked erythema on medial right leg. Patient has a marked erythema medially and then dissipates at the spreads laterally. Assessment & Plan Assessment/Plan (1) Cellulitis: QUALIFIERS: Laterality: right Site of cellulitis: extremity Site of cellulitis of extremity: lower extremity Qualified Code(s): L03.115 - Cellulitis of right lower limb (2) Leukocytosis: QUALIFIERS: Leukocytosis type: unspecified Qualified Code(s): D 72.829 - Elevated white blood cell count, unspecified (3) Morbid obesity: (4) Lymphedema associated with obesity: (5) PLMD (periodic limb movement disorder): (6) IBS (irritable bowel syndrome): QUALIFIERS: Irritable bowel syndrome type: with both diarrhea and constipation Qualified Code(s): K58.2 - Mixed irritable bowel syndrome PLAN: Plan Right leg cellulitis * Recurrent * did take recommended abx as instructed due to diarrhea (cefdinir daily, rather than BID) * on pip/tazo and vanc * ID consult given recurrence Diarrhea * Likely antibiotic induced. C. difficile and additional studies are negative. * Add loperamide as needed Chronic conditions * Obesity Class III: complicates care and recovery. Weight loss will be recommended. * Obesity hypoventilation syndrome; continue CPAP * Essential hypertension: stable. continue lisinopril * Asthma: compensated. PRN BDs * History of stage III decubitus ulcer: consult wound care VTE prophylaxis: enoxaparin Charges/Coding Visit Charges Inpatient E&M: 37358 Subs Hosp L2
[2024-05-05 08:14] LABS: ALB/GLOB Ratio 0.7 RATIO (0.9-2.4); AST(SGOT) 32 U/L (15-37); Alanine Aminotransfer ALT/SGPT 36 U/L (13-56); Albumin, Serum 2.9 g/dL (3.2-5.0); Alkaline Phosphatase 79 U/L (45-117); Anion Gap 9 (5-15); BUN 15 mg/dL (7-18); BUN/Creat Ratio 15.7 RATIO (10-20); Calcium,Total 8.7 mg/dL (8.5-10.1); Chloride 105 mmol/L (98-107); Creatinine, Serum 0.96 mg/dL (0.55-1.02); EST Glomerular Filtration Rate 64 mL/min (>60); Est Glom Filt Rate - Afr Amer 78 mL/min (>60); Estimated Creatinine Clearance 127.08 ml/min; Glucose 96 mg/dL (74-106); Magnesium 1.6 mg/dL (1.6-2.6); Potassium 3.8 mmol/L (3.5-5.1); Protein, Total 6.9 g/dL (6.4-8.2); Sodium Level 136 mmol/L (136-145)
[2024-05-05 08:30] VITALS: BP 139/75; PULSE 78; RESP 18; TEMP 36.9; O2SAT 97
--- NOTE | 2024-05-05 08:31 | WOUNDNOTE ---
skin photo: right leg
--- NOTE | 2024-05-05 08:31 | WOUNDNOTE ---
skin photo: right leg
--- NOTE | 2024-05-05 08:32 | WOUNDNOTE ---
Was asked to see patient for redness to right leg. patient is known to this nurse from many previous admissions for cellulitis. there is moderate erythema to the right thigh. No open areas noted. checked skin folds on legs and did not appear to have any open areas or irritation. This nurse has tried compression on legs in the past. d/t the size and shape of legs, compression does not work well. the wraps tend to fall down and bunch at the ankles even when applied tight. will monitor the redness. see skin photos.
[2024-05-05] MEDS: Aspirin E.C. 81 MG Tablet PO (08:42)
[2024-05-05] MEDS: Ascorbic Acid 500 MG Tablet 1000 MG PO ×2 (08:42→16:48)
--- NOTE | 2024-05-05 08:53 | CASEMGMT ---
Social Work Pt has a living will and health care POA on file at [facility]. HCPOA named is pt's sister Maggie Soto. [place]
--- NOTE | 2024-05-05 10:52 | PCM.CONS.GEN ---
Assessment & Plan Assessment/Plan (1) Cellulitis: QUALIFIERS: Site of cellulitis: extremity Site of cellulitis of extremity: lower extremity Laterality: right Qualified Code(s): L03.115 - Cellulitis of right lower limb PLAN: Will narrow to vanc/cefazolin. Nonpurulent cellulitis. Cdiff neg, will start probiotic. Will follow, thank you (2) Lymphedema associated with obesity: (3) Diarrhea: HPI Consult Data Date of Consult: 05/05/24 HPI Narrative Reason for Consultation: cellulitis HPI Narrative: PHILLIP GARCIA, is a 54 F with obesity, lymphedema, recent admit for RLE cellulitis, discharged 04/08/24 on po cefdinir. Leg slowly improved, course of abx extended another 10 days by PCP but she developed diarrhea about 2 weeks ago, decreased dose to once daily. Now with 10+ BM a day, ? blood in stool. No abd pain, some fever, chills with new RLE redness, pain. No drainage. Admitted here on vanc/zosyn, feeling a little better this AM. FUll ROS performed and neg except as noted above. [facility] Medical History Hyperglycemia Failure of outpatient treatment Ascending aorta dilatation Abnormal echocardiogram IBS (irritable bowel syndrome) Depression Heel spur Osteoarthritis (arthritis due to wear and tear of joints) Asthma GERD without esophagitis Insomnia Anxiety Home Medications ?Medication ?Instructions ?Recorded ?Last Taken ?Type acetaminophen 500 mg capsule 1,000 mg PO Q6H PRN Pain 07/11/21 05/04/24 History aspirin 81 mg tablet,delayed 81 mg PO DAILY blood thinner 07/11/21 05/04/24 History release (Adult Low Dose Aspirin) ferrous sulfate 325 mg (65 mg 325 mg PO DAILY@1200 iron #30 tabs 08/01/21 05/04/24 Rx iron) tablet (FeroSul) venlafaxine 75 mg capsule,extended 225 mg (3 x 75 mg) PO DAILY 09/03/21 05/04/24 Rx release 24 hr (Effexor XR) depression #90 caps lisinopril 10 mg tablet 10 mg PO DAILY blood pressure 07/24/23 05/04/24 History omeprazole 40 mg capsule,delayed 40 mg PO DAILY stomach 07/24/23 05/04/24 History release nystatin 100,000 unit/gram topical 1 applic topical BID yeast 07/31/23 05/04/24 [place] [place] infection 30 days #60 grams cholecalciferol (vitamin D3) 1 tab PO DAILY supplement 04/04/24 05/04/24 History valacyclovir 1 gram tablet 2,000 mg PO BID PRN cold sore 04/07/24 Unknown History clotrimazole 1 % topical cream 1 applic topical BID 05/04/24 05/04/24 History Allergy/AdvReac Type Severity Reaction Status Date / Time adhesive tape AdvReac Unknown Other Verified 04/04/24 19:07 Family History Mother Alzheimer's dementia Surgical History H/O foot surgery History of hip surgery History of cholecystectomy Social History household members: spouse housing: house number of children: 1 current occupational status: employed 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 For lunch she has a bowl of soup and crackers which she takes to work. Sometimes has pretzels for a snack. Eats lunch at 12:30- 1 and does not get home until 7 PM and then she is starved. Her sometimes cooks and it is usually not healthy and may include pizza, hot dogs, fast food. Does not plan meals and her hisband is not supportive of healthy eating. He is a little overweight and likes to eat junk. Physical Exam Const alert, oriented x3 and no apparent distress General Appearance: cooperative HEENT normocephalic and head/scalp atraumatic Eyes PERRL and EOMs intact bilaterally Neck supple and No nodes Resp normal air movement and clear to auscultation bilaterally Cardio regular rhythm Rate: tachycardic GI soft to palpation, non-tender and non-distended Extremity General Extremity: edema Skin Skin Narrative: RLE cellulitis, induration, warmth Neuro CN's II-XII intact bilaterally Lab / Micro Data Attestation: I reviewed the patient's lab results. 05/05/24 06:51 05/05/24 06:51 Labs: Laboratory Results - last 24 hr 05/04/24 18:36: WBC 19.2 H, RBC 4.65, Hgb 12.7, Hct 39.9, MCV 85.8, MCH 27.3, MCHC 31.8 L, RDW Std Deviation 46.8 H, RDW Coeff of Rani 15.0 H, Plt Count 160, MPV 10.0, Immature Gran % (Auto) 0.800, Neut % (Auto) 94.7 H, Lymph % (Auto) 1.5 L, [place] % (Auto) 2.8, Eos % (Auto) 0.0, Baso % (Auto) 0.2, Absolute Neuts (auto) 18.2 H, Absolute Lymphs (auto) 0.29 L, Nucleated RBC % 0, Sodium 133 L, Potassium 4.5, Chloride 100, Carbon Dioxide 26.0, Anion Gap 7, BUN 18, Creatinine 0.99, Estim Creat Clear Calc 124.61, Est GFR (MDRD) Af Amer 75, Est GFR (MDRD) Non-Af 62, BUN/Creatinine Ratio 18.2, Glucose 116 H, Hemoglobin A1c 5.8 H, Lactic Acid 1.6, Calcium 9.3 05/05/24 06:51: WBC 10.9, RBC 4.50, Hgb 12.1, Hct 38.2, MCV 84.9, MCH 26.9 L, MCHC 31.7 L, RDW Std Deviation 47.5 H, RDW Coeff of Rani 15.3 H, Plt Count 146 L, MPV 9.4, Immature Gran % (Auto) 0.800, Neut % (Auto) 93.8 H, Lymph % (Auto) 3.6 L, [place] % (Auto) 1.7, Eos % (Auto) 0.0, Baso % (Auto) 0.1, Absolute Neuts (auto) 10.3 H, Absolute Lymphs (auto) 0.39 L, Nucleated RBC % 0, Sodium 136, Potassium 3.8, Chloride 105, Carbon Dioxide 22.0, Anion Gap 9, BUN 15, Creatinine 0.96, Estim Creat Clear Calc 127.08, Est GFR (MDRD) Af Amer 78, Est GFR (MDRD) Non-Af 64, BUN/Creatinine Ratio 15.7, Glucose 96, Calcium 8.7, Phosphorus 3.0, Magnesium 1.6, Total Bilirubin 0.90, AST 32, ALT 36, Alkaline Phosphatase 79, Total Protein 6.9, Albumin 2.9 L, Globulin 4.0, Albumin/Globulin Ratio 0.7 L Micro: Microbiology 05/05/24 04:18 Stool Stool Lactoferrin - Final 05/05/24 04:18 Stool Enteric Bacteriology - Final 05/05/24 04:18 Stool Clostridioides difficile (PCR) - Final
--- NOTE | 2024-05-05 11:29 | PCM.OP.PRO ---
Procedure Report Date of Procedure: 05/05/24 Assessment & Plan Assessment/Plan (1) Cellulitis: QUALIFIERS: Site of cellulitis: extremity Site of cellulitis of extremity: lower extremity Laterality: right Qualified Code(s): L03.115 - Cellulitis of right lower limb Procedures Radiology Radiology Access Procedures: PICC Procedure Time Out Time Out Informed consent given: Yes Consent signed: Yes Time out checklist: patient, procedure, site marked/identified, positioning of patient, supplies available and allergies confirmed Time out verified: Yes Time out date: 05/05/24 Time out time: 10:15 PICC Line Consent Screening tool completed:: Yes Consent obtained:: Yes Consent given by (patient or responsible constitution party):: patient Line successful (if no, document why in comments):: Yes Insertion Reason for Insertion: Poor Venous Access Date of Insertion: 05/05/24 Ok to use: Yes Type of PICC inserted: Dual Power PICC PICC Lot #: [id number] PICC Reference #: [id number] Microintroducer Used: Yes (in kit) Ultrasound/Equipment Used: Probe Cover Kit Trimmed Length (cm): 51 Insertion Length (cm): 51 Exposed Length (cm): 0 Tip Placement: Caval Atrial Junction Placement Confirmation: 3CG Insertion Vein: Right Basilic Insertion Attempts: 1 Local Anesthesia Used: Lidocaine 1 % (from Pharmacy) Dressing Applied: Statlock and Tegaderm CHG Arm Measurement above site (in cm): 60 Patient Tolerated Procedure: Well Threading Difficulties: No Comments Comment: Patient identity was verified with two patient identifiers. Informed consent was obtained and time-out was completed. Hands were sanitized. The patient was positioned supine with right arm at 90 degrees. The patient's upper arm vasculature was assessed using ultrasound. Patency of the right basilic vein was confirmed and the vein was externally marked. An external measurement was obtained of 51 cm. External leads were applied to the patient's right upper chest and laterally and inferior of the umbilicus on the mid axillary line. Cap, mask, and prep gloves were donned. The underdrape was placed under the patient's arm. The site was prepped with chlorhexidine, and tourniquet was loosely applied. Prep gloves were discarded, and hands were sanitized. The sterile kit was opened with additional supplies dropped in. Sterile gown and gloves were donned, and the patient was draped. The sterile kit was assembled with needle, introducer, needless connectors, and each catheter lumen flushed with sterile normal saline. The marked site of insertion was anesthetized with 1% lidocaine from the kit. Patient tolerated well. The right basilic vein was then accessed using ultrasound guidance and guidewire was inserted to safety hanh. The tourniquet was released. The access needle was removed while securing the guidewire in place. The site was again anesthetized with 1% lidocaine, prior to insertion of introducer sheath and dilator. Patient tolerated the insertion well. The catheter was trimmed to a length of 51 cm. Using 3C guidance, the catheter was then inserted through the introducer sheath, slowly. There was no resistance on insertion. The catheter followed the expected course of the vessel using 3CG tracking. The introducer sheath was retracted and peeled away, incrementally, while keeping the catheter secured. Maximal p-wave, without deflection, confirming placement in the cavoatrial junction, was obtained at an insertion length of 51 cm, leaving 0 cm external. The stylet was removed. A flushed needleless connector was attached to the lumen. Aspiration of the lumen was performed to remove any air and confirm blood return. Blood return was verified and each lumen was flushed with 10 ml of sterile normal saline in a pulsatile fashion. The each lumen was clamped with the last pulsed flush. Total sterile flushes used for the insertion was 8 10 ml syringes, 2 from the kit. Finally, the insertion site was cleaned with chlorhexidine, and the catheter was secured using a StatLock. The site was covered with a Tegaderm CHG Dressing and disinfecting caps were applied. Baseline arm circumference was obtained at the insertion site and measured 60 cm. The patient was provided with a patient education handout on PICC line care of infection prevention, heavy lifting restriction, maintaining mobility, and watching for any signs of infection. The primary nurse is aware that the PICC line is ready for use.
[2024-05-05] MEDS: Venlafaxine XR 75 MG Capsule 225 MG PO (11:52)
[2024-05-05] MEDS: Enoxaparin 40 MG/0.4 ML Syringe SC ×2 (11:53→22:33)
[2024-05-05] MEDS: Clotrimazole 1 APPLIC Tube TOPICAL ×2 (11:53→22:35)
[2024-05-05] MEDS: Nystatin Powder 15gm Bottle 1 APPLIC TOPICAL ×2 (11:53→22:34)
[2024-05-05] MEDS: Lisinopril 10 MG Tablet PO (11:54)
[2024-05-05] MEDS: Pantoprazole Sodium 40 MG Tablet PO (11:54)
[2024-05-05] MEDS: Zinc Sulfate 50 mg zinc (220 mg) ORAL capsule PO (11:54)
[2024-05-05] MEDS: Cholecalciferol (VIT D3) 25 MCG TABLET (1,000 UNITS) PO (11:54)
[2024-05-05] MEDS: Lactobacillis Acidophilus 1 CAP PO ×2 (11:55→22:33)
[2024-05-05] MEDS: Ferrous Sulfate 325 MG Tablet PO (11:55)
[2024-05-05 15:18] VITALS: BP 127/62; PULSE 78; RESP 16; TEMP 37.3; O2SAT 95
[2024-05-05] MEDS: Cefazolin 2 GM in 0.9% Normal Saline (100mL Bag) 100 ML IV ×2 (15:49→22:34)
--- NOTE | 2024-05-05 17:03 | CASEMGMT ---
RN HAROON readmission note: Index admission 04/04-04/08 for bilat lower extremity cellulitis. ID consulted. See RN CM assessment from 04/13/16. Patient was discharged home with Rx for PO cefdinir 300 mg BID x 7 days, which was e-scribed to [facility] pharmacy in [place]. Pt to f/u with PCP in 1 week. Current admission: Admitted 05/04 w/right thigh cellulitis, recurrent. MORIS PATIÑO in to discuss readmission and discharge needs with patient. Patient took atb as prescribed @ discharge and did f/u with PCP, VJ Maloney. PCP prescribed additional atb for another 10 days. Pt was taking this as prescribed, but started developing diarrhea and had only been taking it daily for the past 4 days. Patient denies needs at discharge. She is independent w/ADL's and works full-time. does most home mgnt tasks d/t pt's debility/difficulty getting around at home. CM will continue to follow this patient and plan for a safe discharge. Drew DUONG RN, CM
[2024-05-05 20:20] LABS: Vancomycin, Trough Level 23.7 ug/mL (5.0-15.0)
--- NOTE | 2024-05-05 20:38 | PCM.RX.CS ---
Consult Antibiotic Management Pharmacy has been consulted to manage selected antibiotic: Vancomycin Type of Intervention Type of Consult: Follow-up Suspected Infection Suspected Infection: Skin/Soft tissue Prior Doses of Antibiotics Prior Doses of Antibiotics Received/Current Regimen: Patient received 2000mg iv x 1 in ED on 05.04.24 followed by 1500mg iv q8h x 2 doses. Labs Labs: Sodium 136 mmol/L (136-145) 05/05/24 06:51 Potassium 3.8 mmol/L (3.5-5.1) 05/05/24 06:51 Chloride 105 mmol/L (98-107) 05/05/24 06:51 Carbon Dioxide 22.0 mmol/L (21.0-32.0) 05/05/24 06:51 Anion Gap 9 (5-15) 05/05/24 06:51 BUN 15 mg/dL (7-18) 05/05/24 06:51 Creatinine 0.96 mg/dL (0.55-1.02) 05/05/24 06:51 Est GFR (MDRD) Af Amer 78 mL/min (>60) 05/05/24 06:51 Est GFR (MDRD) Non-Af 64 mL/min (>60) 05/05/24 06:51 BUN/Creatinine Ratio 15.7 RATIO (10-20) 05/05/24 06:51 Glucose 96 mg/dL (74-106) 05/05/24 06:51 Vancomycin Trough 23.7 ug/mL (5.0-15.0) H 05/05/24 19:30 Microbiology Microbiology: Microbiology 05/05/24 04:18 Stool Stool Lactoferrin - Final 05/05/24 04:18 Stool Enteric Bacteriology - Final 05/05/24 04:18 Stool Clostridioides difficile (PCR) - Final Dosing Weight Weight used for dosin kg Estimated Creatinine Clearance Estimated Creatinine Clearance: 127 ml/min Goal Trough Goal Trough: 15-20 mcg/mL Pharmacy Plan for Drug Dosing Pharmacy Plan for Drug Dosing: Trough today ~7.5hrs post dose was elevated at 23.7. Hold further dosing for now with random level in AM. Pharmacy Service will continue to monitor and adjust dosing as required. Follow-Up Labs Follow-Up Labs: Trough: Vancomycin (random level 6.7.24 0600)
[2024-05-05 22:26] VITALS: BP 123/65; PULSE 84; RESP 22; TEMP 37; O2SAT 98
[2024-05-06 01:14] VITALS: BP 110/65; PULSE 70; RESP 20; TEMP 36.7; O2SAT 94
[2024-05-06 05:57] VITALS: BMI 84.9
[2024-05-06] MEDS: 0.9% Saline Lock 10 ML Syringe IV ×2 (06:23→22:32)
[2024-05-06] MEDS: Acetaminophen 325 MG Tablet 650 MG PO ×2 (06:24→22:31)
[2024-05-06] MEDS: Cefazolin 2 GM in 0.9% Normal Saline (100mL Bag) 100 ML IV ×3 (06:25→22:30)
[2024-05-06 06:31] LABS: Absolute Lymphocyte Count 0.58 X10^3/uL (0.83-4.51); Absolute Neutrophil Count 3.6 X10^3/uL (2.0-7.7); Basophil# 0.01 X10^3/uL; Basophil% 0.2 % (0-1); Eosinophil# 0.01 X10^3/uL; Eosinophils% 0.2 % (0-5); Hematocrit 36.1 % (37-47); Hemoglobin 11.2 g/dL (12.0-15.0); Lymphocyte # 0.58 X10^3/ul (0.83-4.51); Lymphocyte % 12.3 % (19-41); Mean Corpuscular Hgb 26.7 pg (27.0-32.0); Mean Corpuscular Volume 86.2 fL (81-99); Mean Platelet Vol. 9.4 fl (6.2-12.0); Monocyte# 0.41 X10^3/uL; Monocyte% 8.7 % (0-10); NRBC Flagged by Analyzer 0 % (0-5); Neutrophil % 76.7 % (47-70); POSITIVE DIFFERENTIAL YES; Platelet Count 131 K/mm3 (150-450); RBC Distribution Width CV 15.3 % (11.6-14.6); RBC Distribution Width SD 48.4 fl (35.1-43.9); Red Blood Count 4.19 M/mm3 (4.2-5.4); White Blood Count 4.7 K/mm3 (4.4-11.0)
[2024-05-06 06:34] VITALS: BP 146/73; PULSE 80; RESP 22; TEMP 36.6; O2SAT 93
[2024-05-06 07:25] VITALS: O2SAT 96
[2024-05-06 07:44] VITALS: BP 134/71; PULSE 70; RESP 16; TEMP 36.6; O2SAT 92
[2024-05-06] MEDS: Aspirin E.C. 81 MG Tablet PO (08:02)
[2024-05-06] MEDS: Ascorbic Acid 500 MG Tablet 1000 MG PO ×2 (08:03→16:57)
[2024-05-06 08:18] LABS: Anion Gap 10 (5-15); BUN 11 mg/dL (7-18); BUN/Creat Ratio 13.9 RATIO (10-20); Calcium,Total 8.9 mg/dL (8.5-10.1); Chloride 105 mmol/L (98-107); Creatinine, Serum 0.79 mg/dL (0.55-1.02); EST Glomerular Filtration Rate 80 mL/min (>60); Est Glom Filt Rate - Afr Amer 97 mL/min (>60); Estimated Creatinine Clearance 154.42 ml/min; Glucose 112 mg/dL (74-106); Potassium 3.8 mmol/L (3.5-5.1); Sodium Level 137 mmol/L (136-145)
--- NOTE | 2024-05-06 08:24 | CT_ITS ---
CT RIGHT LOWER EXTREMITY WITH 3-D IMAGING CLINICAL INDICATION: RLE cellulitis, recurrent TECHNIQUE: Axial CT images of the RIGHT lower extremity was performed without IV contrast material. Coronal and sagittal reformats were provided. The protocol utilizes one or more of the following dose reduction techniques: automated exposure control, adjustment of mA and/or kV according to patient size,and/or use of iterative reconstruction technique. Limited examination due to the patient''s body habitus. RADIATION DOSAGE (If Supplied By Facility): CTDIvol = ( 67.07 ) mGy, DLP = ( 4261.88 ) mGycm COMPARISON: No relevant prior comparison study available FINDINGS: Bones: Osseous structures are normal without evidence of fracture or dislocation. No lytic or blastic osseous masses. Soft Tissues: The deep soft tissue structures are unremarkable. Diffuse increased markings in the subcutaneous fat seen along the distal medial posterior aspect of the right thigh. Diffuse overlying skin thickening. Limited imaging of the left thigh demonstrates increased markings in the subcutaneous fat although the lesser degree as compared to the right side. There is also evidence of diffuse skin thickening. CT/Extremity Lower WITH Contrast IMPRESSION: Diffuse increased markings in the subcutaneous fat involving the distal medial posterior aspect of the right thigh with overlying skin thickening. This is suggestive of a cellulitis. Similar appearance is seen in the distal portion of the medial aspect of the left thigh although to a lesser degree. Electronically Signed: Eder Tubbs MD at 9:34 EDT ,
--- NOTE | 2024-05-06 08:30 | PCM.RX.CS ---
Consult Antibiotic Management Pharmacy has been consulted to manage selected antibiotic: Vancomycin Type of Intervention Type of Consult: Follow-up Suspected Infection Suspected Infection: Skin/Soft tissue Labs Labs: Sodium 137 mmol/L (136-145) 05/06/24 06:20 Potassium 3.8 mmol/L (3.5-5.1) 05/06/24 06:20 Chloride 105 mmol/L (98-107) 05/06/24 06:20 Carbon Dioxide 22.0 mmol/L (21.0-32.0) 05/06/24 06:20 Anion Gap 10 (5-15) 05/06/24 06:20 BUN 11 mg/dL (7-18) 05/06/24 06:20 Creatinine 0.79 mg/dL (0.55-1.02) 05/06/24 06:20 Est GFR (MDRD) Af Amer 97 mL/min (>60) 05/06/24 06:20 Est GFR (MDRD) Non-Af 80 mL/min (>60) 05/06/24 06:20 BUN/Creatinine Ratio 13.9 RATIO (10-20) 05/06/24 06:20 Glucose 112 mg/dL (74-106) H 05/06/24 06:20 Vancomycin Trough 23.7 ug/mL (5.0-15.0) H 05/05/24 19:30 Random Vancomycin 14.0 ug/mL (0.0-15.0) 05/06/24 06:20 Microbiology Microbiology: Microbiology 05/05/24 04:18 Stool Stool Lactoferrin - Final 05/05/24 04:18 Stool Enteric Bacteriology - Final 05/05/24 04:18 Stool Clostridioides difficile (PCR) - Final Goal Trough Goal Trough: 15-20 mcg/mL Pharmacy Plan for Drug Dosing Pharmacy Plan for Drug Dosing: VANCOMYCIN LEVEL RECEIVED Current Vancomycin Dose: on HOLD Number of Doses Received: 1500mg x2, 2000mg x1 Vancomycin Level: 14.0 Hours Since Last Dose: 18.5 Renal Function: sCr 0.79 Renal Function Trend: stable Vancomycin Plan/Comments: Restart Vancomycin 1000mg Q8H Pending Level: Vancomycin trough @ 0830 05/07/24 Pharmacy Service will continue to monitor and adjust dosing as required. Follow-Up Labs Follow-Up Labs: Trough: Vancomycin (08:30 05/07/24)
[2024-05-06] MEDS: Vancomycin IV 1,000 MG/200 ML BAG 200 MG IV ×2 (09:45→16:57)
[2024-05-06] MEDS: Lactobacillis Acidophilus 1 CAP PO ×2 (10:43→22:30)
[2024-05-06] MEDS: Clotrimazole 1 APPLIC Tube TOPICAL ×2 (10:43→22:32)
[2024-05-06] MEDS: Venlafaxine XR 75 MG Capsule 225 MG PO (10:43)
[2024-05-06] MEDS: Lisinopril 10 MG Tablet PO (10:44)
[2024-05-06] MEDS: Cholecalciferol (VIT D3) 25 MCG TABLET (1,000 UNITS) PO (10:44)
[2024-05-06] MEDS: Nystatin Powder 15gm Bottle 1 APPLIC TOPICAL ×2 (10:44→22:32)
[2024-05-06] MEDS: Pantoprazole Sodium 40 MG Tablet PO (10:44)
[2024-05-06] MEDS: Enoxaparin 40 MG/0.4 ML Syringe SC ×2 (10:44→22:30)
--- NOTE | 2024-05-06 10:44 | PN.HOSP_ITS ---
Reason for Visit Reason for Visit: Diagnoses Elevated white blood cell count, unspecified (05/04/24) Morbid (severe) obesity due to excess calories (05/04/24) Obesity, unspecified (05/04/24) Periodic limb movement disorder (05/04/24) Lymphedema, not elsewhere classified (05/04/24) Mixed irritable bowel syndrome (05/04/24) Cellulitis of right lower limb (05/04/24) Diarrhea, unspecified (05/04/24) Subjective Subjective Having increased pain in right leg. Objective Data Objective Data Vital Signs: Vital Signs Temp Pulse Resp BP Pulse Ox O2 Del Method 36.6 C 70 16 134/71 H 92 Room Air 05/06/24 07:44 05/06/24 07:44 05/06/24 07:44 05/06/24 07:44 05/06/24 07:44 05/06/24 07:44 Oxygen Delivery Method Room Air Weight: 225.5 kg Body Mass Index (BMI) 84.9 Intake & Output: Intake and Output for Last 24 Hours 05/04/24 05/05/24 05/06/24 23:59 23:59 23:59 Intake Total 1203.75 / 1203.75 2583.75 / 2583.75 510 / 510 Output Total 500 / 500 Balance 703.75 / 703.75 2583.75 / 2583.75 510 / 510 Lab / Micro Data 05/06/24 06:20 05/06/24 06:20 Labs: Laboratory Results - last 24 hr 05/05/24 19:30: Vancomycin Trough 23.7 H 05/06/24 06:20: WBC 4.7, RBC 4.19 L, Hgb 11.2 L, Hct 36.1 L, MCV 86.2, MCH 26.7 L, MCHC 31.0 L, RDW Std Deviation 48.4 H, RDW Coeff of Rani 15.3 H, Plt Count 131 L, MPV 9.4, Immature Gran % (Auto) 1.900 H, Neut % (Auto) 76.7 H, Lymph % (Auto) 12.3 L, Clark % (Auto) 8.7, Eos % (Auto) 0.2, Baso % (Auto) 0.2, Absolute Neuts (auto) 3.6, Absolute Lymphs (auto) 0.58 L, Nucleated RBC % 0, Sodium 137, Potassium 3.8, Chloride 105, Carbon Dioxide 22.0, Anion Gap 10, BUN 11, Creatinine 0.79, Estim Creat Clear Calc 154.42, Est GFR (MDRD) Af Amer 97, Est GFR (MDRD) Non-Af 80, BUN/Creatinine Ratio 13.9, Glucose 112 H, Calcium 8.9, Random Vancomycin 14.0 Micro: Microbiology 05/05/24 04:18 Stool Stool Lactoferrin - Final 05/05/24 04:18 Stool Enteric Bacteriology - Final 05/05/24 04:18 Stool Clostridioides difficile (PCR) - Final Radiography Diagnostic Testing: Radiology Impression Lower Extremity CT 05/06/24 08:24 IMPRESSION: Diffuse increased markings in the subcutaneous fat involving the distal medial posterior aspect of the right thigh with overlying skin thickening. This is suggestive of a cellulitis. Similar appearance is seen in the distal portion of the medial aspect of the left thigh although to a lesser degree. Electronically Signed: Eder Tubbs MD at 9:34 EDT , Physical Exam Const alert and no apparent distress HEENT head/scalp atraumatic and moist oral mucous membranes Resp normal respiratory effort, no retractions, no use of accessory muscles and clear to auscultation bilaterally Cardio regular rate, regular rhythm, S1 normal heart sound and S2 normal heart sound GI normal to inspection, nondistended, normoactive bowel sounds, soft to palpation, non-tender and non-distended Extremity Extremity Narrative: induration on right medial thigh, faint erythema on lateral right thigh. no fluctuance. Neuro Sensorium / Orientation: awake and alert Psych affect normal Assessment & Plan Assessment/Plan (1) Cellulitis: QUALIFIERS: Site of cellulitis: extremity Site of cellulitis of extremity: lower extremity Laterality: right Qualified Code(s): L03.115 - Cellulitis of right lower limb (2) Leukocytosis: QUALIFIERS: Leukocytosis type: unspecified Qualified Code(s): D 72.829 - Elevated white blood cell count, unspecified (3) Morbid obesity: (4) Lymphedema associated with obesity: (5) PLMD (periodic limb movement disorder): (6) IBS (irritable bowel syndrome): QUALIFIERS: Irritable bowel syndrome type: with both diarrhea and constipation Qualified Code(s): K58.2 - Mixed irritable bowel syndrome PLAN: Plan Right leg cellulitis * Recurrent * did take recommended abx as instructed due to diarrhea (cefdinir daily, rather than BID) * on pip/tazo and vanc * ID consult given recurrence * CT: showed diffuse increased markings in the subcutaneous fat in the distal medial posterior aspect of the right thigh with overlying skin thickening. Diarrhea * Likely antibiotic induced. C. difficile and additional studies are negative. * Add loperamide as needed Chronic conditions * Obesity Class III: complicates care and recovery. Weight loss will be recommended. * Obesity hypoventilation syndrome; continue CPAP * Essential hypertension: stable. continue lisinopril * Asthma: compensated. PRN BDs * History of stage III decubitus ulcer: consult wound care VTE prophylaxis: enoxaparin Charges/Coding Visit Charges Inpatient E&M: 95807 Subs Hosp L2
[2024-05-06] MEDS: Ferrous Sulfate 325 MG Tablet PO (10:45)
[2024-05-06] MEDS: Zinc Sulfate 50 mg zinc (220 mg) ORAL capsule PO (10:45)
[2024-05-06] MEDS: oxyCODONE 5 MG Tablet PO (12:38)
[2024-05-06] MEDS: 0.9% Normal Saline (1000mL) 1,000 ML 75 ML IV (12:38)
--- NOTE | 2024-05-06 14:01 | CASEMGMT ---
RN CM in to discuss needs at discharge, sister at bedside. Patient denies needs or help at discharge. Patient has family for support at home. Patient had no further questions or concerns. CM will continue to follow this patient and plan for a safe discharge.
[2024-05-06 14:45] VITALS: BP 123/69; PULSE 73; RESP 16; TEMP 36.8; O2SAT 93
--- NOTE | 2024-05-06 15:30 | PCM.PN.ID ---
Physical Exam Narrative Feeling better, leg less sore and red. No diarrhea today. No fever. Const alert and no apparent distress General Appearance: cooperative Resp normal air movement and clear to auscultation bilaterally Cardio regular rate and regular rhythm GI soft to palpation, non-tender and non-distended Skin Skin Narrative: RLE fading redness ID ID: Route of nutrition/ use of supplements: [] Nutritional Intake: [] IV Site: [] Galeano Catheter: [] Assessment & Plan Assessment/Plan (1) Cellulitis: QUALIFIERS: Site of cellulitis: extremity Site of cellulitis of extremity: lower extremity Laterality: right Qualified Code(s): L03.115 - Cellulitis of right lower limb PLAN: Improving slowly. Cont vanc/cefazolin. Nonpurulent cellulitis. Cdiff neg, now on probiotic. Diarrhea better. Will follow (2) Lymphedema associated with obesity: (3) Diarrhea:
[2024-05-06 22:24] VITALS: BP 134/81; PULSE 78; RESP 20; TEMP 37.4; O2SAT 93
[2024-05-07 01:52] VITALS: BMI 84.9
[2024-05-07] MEDS: 0.9% Normal Saline (1000mL) 1,000 ML 75 ML IV ×2 (04:25→16:53)
[2024-05-07] MEDS: Cefazolin 2 GM in 0.9% Normal Saline (100mL Bag) 100 ML IV ×3 (06:10→21:26)
[2024-05-07 06:13] VITALS: BP 128/79; PULSE 76; RESP 20; TEMP 36.7; O2SAT 91
[2024-05-07] MEDS: Acetaminophen 325 MG Tablet 650 MG PO ×2 (06:21→12:26)
[2024-05-07] MEDS: oxyCODONE 5 MG Tablet PO ×3 (06:21→17:03)
--- NOTE | 2024-05-07 07:17 | PN.HOSP_ITS ---
Reason for Visit Reason for Visit: Diagnoses Elevated white blood cell count, unspecified (05/04/24) Morbid (severe) obesity due to excess calories (05/04/24) Obesity, unspecified (05/04/24) Periodic limb movement disorder (05/04/24) Lymphedema, not elsewhere classified (05/04/24) Mixed irritable bowel syndrome (05/04/24) Cellulitis of right lower limb (05/04/24) Diarrhea, unspecified (05/04/24) Subjective Subjective No new complaints. Admits to using a roll-on antiperspirant on underside of right leg roll. Objective Data Objective Data Vital Signs: Vital Signs Temp Pulse Resp BP Pulse Ox O2 Del Method 36.7 C 76 20 H 128/79 H 91 CPAP 05/07/24 06:13 05/07/24 06:13 05/07/24 06:13 05/07/24 06:13 05/07/24 06:13 05/07/24 06:13 Oxygen Delivery Method CPAP Weight: 225.6 kg Body Mass Index (BMI) 84.9 Intake & Output: Intake and Output for Last 24 Hours 05/05/24 05/06/24 05/07/24 23:59 23:59 23:59 Intake Total 2583.75 / 2583.75 2105 / 2105 1310 / 1310 Balance 2583.75 / 2583.75 2105 / 2105 1310 / 1310 Lab / Micro Data 05/06/24 06:20 05/07/24 08:45 Labs: Laboratory Results - last 24 hr 05/06/24 06:20: Sodium 137, Potassium 3.8, Chloride 105, Carbon Dioxide 22.0, Anion Gap 10, BUN 11, Creatinine 0.79, Estim Creat Clear Calc 154.42, Est GFR (MDRD) Af Amer 97, Est GFR (MDRD) Non-Af 80, BUN/Creatinine Ratio 13.9, Glucose 112 H, Calcium 8.9, Random Vancomycin 14.0 Micro: Microbiology 05/04/24 18:35 Blood Culture (Wb) - Arm Right Blood Culture - Preliminary No growth in 48 hours. 05/04/24 18:36 Blood Culture (Wb) - Anticubital Left Blood Culture - Preliminary No growth in 48 hours. 05/05/24 04:18 Stool Stool Lactoferrin - Final 05/05/24 04:18 Stool Enteric Bacteriology - Final 05/05/24 04:18 Stool Clostridioides difficile (PCR) - Final Radiography Diagnostic Testing: Radiology Impression Lower Extremity CT 05/06/24 08:24 IMPRESSION: Diffuse increased markings in the subcutaneous fat involving the distal medial posterior aspect of the right thigh with overlying skin thickening. This is suggestive of a cellulitis. Similar appearance is seen in the distal portion of the medial aspect of the left thigh although to a lesser degree. Electronically Signed: Eder Tubbs MD at 9:34 EDT , Physical Exam Const alert and no apparent distress HEENT head/scalp atraumatic and moist oral mucous membranes Extremity Extremity Narrative: Lymphedema bilaterally. Decreased induration, warmth and erythema of medial right leg. Assessment & Plan Assessment/Plan (1) Cellulitis: QUALIFIERS: Laterality: right Site of cellulitis: extremity Site of cellulitis of extremity: lower extremity Qualified Code(s): L03.115 - Cellulitis of right lower limb (2) Leukocytosis: QUALIFIERS: Leukocytosis type: unspecified Qualified Code(s): D 72.829 - Elevated white blood cell count, unspecified (3) Morbid obesity: (4) Lymphedema associated with obesity: PLAN: Plan Right leg cellulitis * Recurrent * did take recommended abx as instructed due to diarrhea (cefdinir daily, rather than BID) * on pip/tazo and vanc * ID following * CT: showed diffuse increased markings in the subcutaneous fat in the distal medial posterior aspect of the right thigh with overlying skin thickening. * Patient notes that she uses an antiperspirant that the roll-on on the underside of her right leg fold. I advised against out as I cannot determine if she may have some localized irritation that may make her susceptible to recurrent infections. Advised to keep the area clean and dry in the future. Diarrhea * Likely antibiotic induced. C. difficile and additional studies are negative. * Add loperamide as needed Chronic conditions * Obesity Class III: complicates care and recovery. Weight loss will be recommended. * Obesity hypoventilation syndrome; continue CPAP * Essential hypertension: stable. continue lisinopril * Asthma: compensated. PRN BDs * History of stage III decubitus ulcer: consult wound care * Lymphedema: complicates cellulitis VTE prophylaxis: enoxaparin Greater than 35 minutes of which greater than 50% of time was counseling the patient about care for her leg, keeping clean and dry and avoiding the antiperspirant. Though I told her I could not determine that it was a direct cause of this infection I told her that with it being recurrent to that it be best just to avoid it moving forward. Charges/Coding Visit Charges Inpatient E&M: 81033 Subs Hosp L2
[2024-05-07 07:35] VITALS: PULSE 65; RESP 16; O2SAT 97
[2024-05-07] MEDS: Albuterol 2.5 MG/3 ML VIAL.NEB. INHALATION (07:35)
[2024-05-07 09:00] VITALS: BP 99/61; PULSE 76; RESP 18; TEMP 36.7; O2SAT 93
[2024-05-07] MEDS: Enoxaparin 40 MG/0.4 ML Syringe SC ×2 (09:37→21:31)
[2024-05-07] MEDS: Venlafaxine XR 75 MG Capsule 225 MG PO (09:38)
[2024-05-07] MEDS: Clotrimazole 1 APPLIC Tube TOPICAL ×2 (09:38→21:31)
[2024-05-07] MEDS: Ascorbic Acid 500 MG Tablet 1000 MG PO ×2 (09:39→16:53)
[2024-05-07] MEDS: Pantoprazole Sodium 40 MG Tablet PO (09:40)
[2024-05-07] MEDS: Lactobacillis Acidophilus 1 CAP PO ×2 (09:40→21:31)
[2024-05-07] MEDS: Aspirin E.C. 81 MG Tablet PO (09:40)
[2024-05-07] MEDS: Nystatin Powder 15gm Bottle 1 APPLIC TOPICAL ×2 (09:40→21:32)
[2024-05-07] MEDS: Lisinopril 10 MG Tablet PO (09:42)
[2024-05-07] MEDS: Cholecalciferol (VIT D3) 25 MCG TABLET (1,000 UNITS) PO (09:42)
[2024-05-07] MEDS: Ferrous Sulfate 325 MG Tablet PO (09:43)
[2024-05-07] MEDS: Zinc Sulfate 50 mg zinc (220 mg) ORAL capsule PO (09:43)
--- NOTE | 2024-05-07 10:05 | NURSING ---
vancomycin not on unit for 0900 administration-staff in pharmacy notified
--- NOTE | 2024-05-07 10:11 | NURSING ---
vanc trough drawn at 0845 still pending at this time
[2024-05-07 10:15] LABS: Anion Gap 5 (5-15); BUN 12 mg/dL (7-18); BUN/Creat Ratio 14.8 RATIO (10-20); Calcium,Total 8.9 mg/dL (8.5-10.1); Chloride 105 mmol/L (98-107); Creatinine, Serum 0.81 mg/dL (0.55-1.02); EST Glomerular Filtration Rate 78 mL/min (>60); Est Glom Filt Rate - Afr Amer 94 mL/min (>60); Estimated Creatinine Clearance 150.66 ml/min; Glucose 111 mg/dL (74-106); Potassium 3.8 mmol/L (3.5-5.1); Sodium Level 135 mmol/L (136-145)
[2024-05-07 10:19] LABS: Vancomycin, Trough Level 16.6 ug/mL (5.0-15.0)
[2024-05-07] MEDS: Vancomycin IV 1,000 MG/200 ML BAG 200 MG IV ×3 (10:20→16:53)
--- NOTE | 2024-05-07 11:35 | PCM.RX.CS ---
Consult Antibiotic Management Pharmacy has been consulted to manage selected antibiotic: Vancomycin Type of Intervention Type of Consult: Follow-up Suspected Infection Suspected Infection: Skin/Soft tissue Prior Doses of Antibiotics Prior Doses of Antibiotics Received/Current Regimen: Currently on 1000mg iv q8h. Labs Labs: Sodium 135 mmol/L (136-145) L 05/07/24 08:45 Potassium 3.8 mmol/L (3.5-5.1) 05/07/24 08:45 Chloride 105 mmol/L (98-107) 05/07/24 08:45 Carbon Dioxide 25.0 mmol/L (21.0-32.0) 05/07/24 08:45 Anion Gap 5 (5-15) 05/07/24 08:45 BUN 12 mg/dL (7-18) 05/07/24 08:45 Creatinine 0.81 mg/dL (0.55-1.02) 05/07/24 08:45 Est GFR (MDRD) Af Amer 94 mL/min (>60) 05/07/24 08:45 Est GFR (MDRD) Non-Af 78 mL/min (>60) 05/07/24 08:45 BUN/Creatinine Ratio 14.8 RATIO (10-20) 05/07/24 08:45 Glucose 111 mg/dL (74-106) H 05/07/24 08:45 Vancomycin Trough 16.6 ug/mL (5.0-15.0) H 05/07/24 08:45 Random Vancomycin 14.0 ug/mL (0.0-15.0) 05/06/24 06:20 Microbiology Microbiology: Microbiology 05/04/24 18:35 Blood Culture (Wb) - Arm Right Blood Culture - Preliminary No growth in 48 hours. 05/04/24 18:36 Blood Culture (Wb) - Anticubital Left Blood Culture - Preliminary No growth in 48 hours. 05/05/24 04:18 Stool Stool Lactoferrin - Final 05/05/24 04:18 Stool Enteric Bacteriology - Final 05/05/24 04:18 Stool Clostridioides difficile (PCR) - Final Dosing Weight Weight used for dosin kg Estimated Creatinine Clearance Estimated Creatinine Clearance: 151ml/min Goal Trough Goal Trough: 15-20 mcg/mL Pharmacy Plan for Drug Dosing Pharmacy Plan for Drug Dosing: Trough today ~9hrs post dose 16.6. In desired therapeutic range. Continue same dose of 1gm iv q8h. Repeat trough before next 4th dose per protocol. Pharmacy Service will continue to monitor and adjust dosing as required. Follow-Up Labs Follow-Up Labs: Trough: Vancomycin (6.9.24 0830)
[2024-05-07 12:00] VITALS: PULSE 72; RESP 18; O2SAT 94
[2024-05-07 13:00] VITALS: BP 136/72; PULSE 72; RESP 18; TEMP 36.7; O2SAT 94
[2024-05-07 20:00] VITALS: BP 131/67; PULSE 71; RESP 16; TEMP 36.7; O2SAT 94
[2024-05-08] MEDS: Vancomycin IV 1,000 MG/200 ML BAG 200 MG IV ×3 (01:26→17:19)
[2024-05-08] MEDS: oxyCODONE 5 MG Tablet PO ×2 (02:43→07:52)
[2024-05-08] MEDS: Cefazolin 2 GM in 0.9% Normal Saline (100mL Bag) 100 ML IV ×3 (06:31→20:59)
--- NOTE | 2024-05-08 07:28 | PN.HOSP_ITS ---
Reason for Visit Reason for Visit: Diagnoses Elevated white blood cell count, unspecified (05/04/24) Morbid (severe) obesity due to excess calories (05/04/24) Obesity, unspecified (05/04/24) Periodic limb movement disorder (05/04/24) Lymphedema, not elsewhere classified (05/04/24) Mixed irritable bowel syndrome (05/04/24) Cellulitis of right lower limb (05/04/24) Diarrhea, unspecified (05/04/24) Subjective Subjective Still have right leg pain. Objective Data Objective Data Vital Signs: Vital Signs Temp Pulse Resp BP Pulse Ox O2 Del Method 36.7 C 71 16 131/67 H 94 Room Air 05/07/24 20:00 05/07/24 20:00 05/07/24 20:00 05/07/24 20:00 05/07/24 20:00 05/08/24 02:00 Oxygen Delivery Method Room Air Weight: 225.6 kg Body Mass Index (BMI) 84.9 Intake & Output: Intake and Output for Last 24 Hours 05/06/24 05/07/24 05/08/24 23:59 23:59 23:59 Intake Total 2105 / 2105 5216 / 5566 850 / 850 Balance 2105 / 2105 5216 / 5566 850 / 850 Lab / Micro Data 05/08/24 08:34 05/08/24 08:34 Labs: Laboratory Results - last 24 hr 05/07/24 08:45: Sodium 135 L, Potassium 3.8, Chloride 105, Carbon Dioxide 25.0, Anion Gap 5, BUN 12, Creatinine 0.81, Estim Creat Clear Calc 150.66, Est GFR (MDRD) Af Amer 94, Est GFR (MDRD) Non-Af 78, BUN/Creatinine Ratio 14.8, Glucose 111 H, Calcium 8.9, Vancomycin Trough 16.6 H Micro: Microbiology 05/04/24 18:35 Blood Culture (Wb) - Arm Right Blood Culture - Preliminary No growth in 48 hours. 05/04/24 18:36 Blood Culture (Wb) - Anticubital Left Blood Culture - Preliminary No growth in 48 hours. 05/05/24 04:18 Stool Stool Lactoferrin - Final 05/05/24 04:18 Stool Enteric Bacteriology - Final 05/05/24 04:18 Stool Clostridioides difficile (PCR) - Final Physical Exam Const alert and oriented x3 HEENT head/scalp atraumatic and moist oral mucous membranes Resp normal respiratory effort and no retractions GI non-distended GI Narrative: obese. Extremity Extremity Narrative: Improving erythema and induration of the right lower extremity. Dependent edema. Psych affect normal Assessment & Plan Assessment/Plan (1) Cellulitis: QUALIFIERS: Laterality: right Site of cellulitis: extremity Site of cellulitis of extremity: lower extremity Qualified Code(s): L03.115 - Cellulitis of right lower limb (2) Leukocytosis: QUALIFIERS: Leukocytosis type: unspecified Qualified Code(s): D 72.829 - Elevated white blood cell count, unspecified (3) Morbid obesity: (4) Lymphedema associated with obesity: PLAN: Plan Right leg cellulitis * Recurrent currently improving. * did take recommended abx as instructed due to diarrhea (cefdinir daily, rather than BID) * on pip/tazo and vanc * ID following * CT: showed diffuse increased markings in the subcutaneous fat in the distal medial posterior aspect of the right thigh with overlying skin thickening. * Patient notes that she uses an antiperspirant that the roll-on on the underside of her right leg fold. I advised against out as I cannot determine if she may have some localized irritation that may make her susceptible to recurrent infections. Advised to keep the area clean and dry in the future. * Patient with a still out of edema. Weight appears to be more or less stable but since 2001 she is put on roughly 30 kg. Will give trial of some IV furosemide. Diarrhea * Likely antibiotic induced. C. difficile and additional studies are negative. * Add loperamide as needed Chronic conditions * Obesity Class III: complicates care and recovery. Weight loss will be recommended. * Obesity hypoventilation syndrome; continue CPAP * Essential hypertension: stable. continue lisinopril * Asthma: compensated. PRN BDs * History of stage III decubitus ulcer: consult wound care * Lymphedema: complicates cellulitis VTE prophylaxis: enoxaparin Charges/Coding Visit Charges Inpatient E&M: 09030 Subs Hosp L2
[2024-05-08 07:50] VITALS: BP 121/72; PULSE 67; RESP 18; TEMP 36.9; O2SAT 94
[2024-05-08] MEDS: Ascorbic Acid 500 MG Tablet 1000 MG PO ×2 (07:51→17:19)
[2024-05-08] MEDS: 0.9% Normal Saline (1000mL) 1,000 ML 75 ML IV ×2 (07:52→17:19)
[2024-05-08] MEDS: Aspirin E.C. 81 MG Tablet PO (07:52)
[2024-05-08] MEDS: Acetaminophen 325 MG Tablet 650 MG PO (07:52)
[2024-05-08] MEDS: Nystatin Powder 15gm Bottle 1 APPLIC TOPICAL ×2 (07:52→20:52)
[2024-05-08 08:52] LABS: Absolute Neutrophil Count 4.2 X10^3/uL (2.0-7.7); Basophil# 0.02 X10^3/uL; Basophil% 0.4 % (0-1); Hemoglobin 11.3 g/dL (12.0-15.0); Lymphocyte % 12.3 % (19-41); Mean Corp Hgb Conc 31.4 g/dL (32-36); Mean Corpuscular Volume 86.1 fL (81-99); Mean Platelet Vol. 9.6 fl (6.2-12.0); Monocyte# 0.72 X10^3/uL; Monocyte% 12.6 % (0-10); NRBC Flagged by Analyzer 0 % (0-5); Neutrophil # 4.19 X10^3/uL (2.7-7.7); Neutrophil % 73.3 % (47-70); Platelet Count 148 K/mm3 (150-450); RBC Distribution Width CV 15.1 % (11.6-14.6); RBC Distribution Width SD 47.4 fl (35.1-43.9); Red Blood Count 4.18 M/mm3 (4.2-5.4); White Blood Count 5.7 K/mm3 (4.4-11.0)
[2024-05-08 09:16] LABS: Anion Gap 6 (5-15); BUN 10 mg/dL (7-18); BUN/Creat Ratio 12.9 RATIO (10-20); Calcium,Total 8.6 mg/dL (8.5-10.1); Chloride 106 mmol/L (98-107); Creatinine, Serum 0.77 mg/dL (0.55-1.02); EST Glomerular Filtration Rate 82 mL/min (>60); Est Glom Filt Rate - Afr Amer 99 mL/min (>60); Estimated Creatinine Clearance 158.49 ml/min; Glucose 110 mg/dL (74-106); Potassium 3.7 mmol/L (3.5-5.1); Sodium Level 137 mmol/L (136-145)
[2024-05-08 09:18] LABS: Vancomycin, Trough Level 19.5 ug/mL (5.0-15.0)
--- NOTE | 2024-05-08 09:35 | PHA.PHARE_ITS ---
Consult Antibiotic Management Pharmacy has been consulted to manage selected antibiotic: Vancomycin Type of Intervention Type of Consult: Follow-up Suspected Infection Suspected Infection: Skin/Soft tissue Labs Labs: Sodium 137 mmol/L (136-145) 05/08/24 08:34 Potassium 3.7 mmol/L (3.5-5.1) 05/08/24 08:34 Chloride 106 mmol/L (98-107) 05/08/24 08:34 Carbon Dioxide 25.0 mmol/L (21.0-32.0) 05/08/24 08:34 Anion Gap 6 (5-15) 05/08/24 08:34 BUN 10 mg/dL (7-18) 05/08/24 08:34 Creatinine 0.77 mg/dL (0.55-1.02) 05/08/24 08:34 Est GFR (MDRD) Af Amer 99 mL/min (>60) 05/08/24 08:34 Est GFR (MDRD) Non-Af 82 mL/min (>60) 05/08/24 08:34 BUN/Creatinine Ratio 12.9 RATIO (10-20) 05/08/24 08:34 Glucose 110 mg/dL (74-106) H 05/08/24 08:34 Vancomycin Trough 19.5 ug/mL (5.0-15.0) H 05/08/24 08:34 Random Vancomycin 14.0 ug/mL (0.0-15.0) 05/06/24 06:20 Microbiology Microbiology: Microbiology 05/04/24 18:35 Blood Culture (Wb) - Arm Right Blood Culture - Preliminary No growth in 48 hours. 05/04/24 18:36 Blood Culture (Wb) - Anticubital Left Blood Culture - Preliminary No growth in 48 hours. 05/05/24 04:18 Stool Stool Lactoferrin - Final 05/05/24 04:18 Stool Enteric Bacteriology - Final 05/05/24 04:18 Stool Clostridioides difficile (PCR) - Final Pharmacy Plan for Drug Dosing Pharmacy Plan for Drug Dosing: VANCOMYCIN LEVEL RECEIVED Current Vancomycin Dose: 1000MG Q8 Number of Doses Received: 11 Vancomycin Level: 19.5 MG/DL Hours Since Last Dose: 7 Renal Function: SCR 0.77 MG/DL Renal Function Trend: STABLE, IMPROVED Lab/Micro: NONE Vancomycin Plan/Comments: 7 hour trough is therapeutic at 19.5mg/dL (goal 15- 20mg/dL). Will continue current dosing at this time and get a trough in 2 days. Pending Level: 05/10/24 @ 0830 Pharmacy Service will continue to monitor and adjust dosing as required.
[2024-05-08] MEDS: Enoxaparin 40 MG/0.4 ML Syringe SC ×2 (10:04→20:52)
[2024-05-08] MEDS: Lisinopril 10 MG Tablet PO (10:05)
[2024-05-08] MEDS: Lactobacillis Acidophilus 1 CAP PO ×2 (10:05→20:52)
[2024-05-08] MEDS: Clotrimazole 1 APPLIC Tube TOPICAL ×2 (10:05→20:53)
[2024-05-08] MEDS: Pantoprazole Sodium 40 MG Tablet PO (10:05)
[2024-05-08] MEDS: Cholecalciferol (VIT D3) 25 MCG TABLET (1,000 UNITS) PO (10:05)
[2024-05-08] MEDS: Venlafaxine XR 75 MG Capsule 225 MG PO (10:05)
[2024-05-08] MEDS: Zinc Sulfate 50 mg zinc (220 mg) ORAL capsule PO (10:05)
[2024-05-08 11:50] VITALS: BP 135/73; PULSE 76; RESP 18; TEMP 36.8; O2SAT 95
[2024-05-08] MEDS: Ferrous Sulfate 325 MG Tablet PO (11:56)
[2024-05-08] MEDS: Furosemide 40 MG/4 ML Vial IV ×2 (11:56→17:20)
[2024-05-08] MEDS: 0.9% Saline Lock 10 ML Syringe IV ×2 (11:57→17:20)
[2024-05-08] MEDS: 0.9 % NaCl (Sterile) Posiflush 10 mL IV (13:43)
[2024-05-08 17:15] VITALS: BP 112/68; PULSE 71; RESP 18; TEMP 37.2; O2SAT 92
[2024-05-08 23:30] VITALS: BP 127/71; PULSE 73; RESP 16; TEMP 36.7; O2SAT 96
[2024-05-09] MEDS: Vancomycin IV 1,000 MG/200 ML BAG 200 MG IV ×3 (01:35→17:31)
[2024-05-09 04:30] VITALS: BMI 84.9
[2024-05-09] MEDS: Cefazolin 2 GM in 0.9% Normal Saline (100mL Bag) 100 ML IV ×2 (05:21→14:23)
[2024-05-09] MEDS: Acetaminophen 325 MG Tablet 650 MG PO ×2 (06:21→12:27)
[2024-05-09] MEDS: 0.9% Saline Lock 10 ML Syringe IV (06:23)
[2024-05-09 07:28] LABS: Anion Gap 6 (5-15); BUN 12 mg/dL (7-18); BUN/Creat Ratio 16.3 RATIO (10-20); Calcium,Total 8.9 mg/dL (8.5-10.1); Chloride 103 mmol/L (98-107); Creatinine, Serum 0.74 mg/dL (0.55-1.02); EST Glomerular Filtration Rate 87 mL/min (>60); Est Glom Filt Rate - Afr Amer 105 mL/min (>60); Estimated Creatinine Clearance 164.91 ml/min; Glucose 109 mg/dL (74-106); Potassium 3.6 mmol/L (3.5-5.1); Sodium Level 137 mmol/L (136-145)
[2024-05-09 07:30] VITALS: BP 115/62; PULSE 60; RESP 18; TEMP 36.6; O2SAT 96
[2024-05-09] MEDS: Venlafaxine XR 75 MG Capsule 225 MG PO (08:23)
[2024-05-09] MEDS: Lactobacillis Acidophilus 1 CAP PO (08:24)
[2024-05-09] MEDS: Ascorbic Acid 500 MG Tablet 1000 MG PO (08:24)
[2024-05-09] MEDS: Zinc Sulfate 50 mg zinc (220 mg) ORAL capsule PO (08:24)
[2024-05-09] MEDS: Lisinopril 10 MG Tablet PO (08:24)
[2024-05-09] MEDS: Pantoprazole Sodium 40 MG Tablet PO (08:24)
[2024-05-09] MEDS: Cholecalciferol (VIT D3) 25 MCG TABLET (1,000 UNITS) PO (08:24)
[2024-05-09] MEDS: Enoxaparin 40 MG/0.4 ML Syringe SC (08:24)
[2024-05-09] MEDS: Clotrimazole 1 APPLIC Tube TOPICAL (08:25)
[2024-05-09] MEDS: Nystatin Powder 15gm Bottle 1 APPLIC TOPICAL (08:25)
[2024-05-09] MEDS: 0.9% Normal Saline (1000mL) 1,000 ML 75 ML IV (08:25)
[2024-05-09] MEDS: Aspirin E.C. 81 MG Tablet PO (08:26)
--- NOTE | 2024-05-09 08:35 | PCM.PN.HOSP ---
Reason for Visit Reason for Visit: Diagnoses Elevated white blood cell count, unspecified (05/04/24) Morbid (severe) obesity due to excess calories (05/04/24) Obesity, unspecified (05/04/24) Periodic limb movement disorder (05/04/24) Lymphedema, not elsewhere classified (05/04/24) Mixed irritable bowel syndrome (05/04/24) Cellulitis of right lower limb (05/04/24) Diarrhea, unspecified (05/04/24) Subjective Subjective Still with pain in right medial lower leg. No new changes. Objective Data Objective Data Vital Signs: Vital Signs Temp Pulse Resp BP Pulse Ox O2 Del Method 36.7 C 73 16 127/71 H 96 Room Air 05/08/24 23:30 05/08/24 23:30 05/08/24 23:30 05/08/24 23:30 05/08/24 23:30 05/08/24 23:30 Oxygen Delivery Method Room Air Weight: 225.6 kg Body Mass Index (BMI) 84.9 Intake & Output: Intake and Output for Last 24 Hours 05/07/24 05/08/24 05/09/24 23:59 23:59 23:59 Intake Total 5216 / 5566 3288.75 / 3588.75 1610 / 1610 Balance 5216 / 5566 3288.75 / 3588.75 1610 / 1610 Lab / Micro Data 05/08/24 08:34 05/09/24 06:20 Labs: Laboratory Results - last 24 hr 05/08/24 08:34: WBC 5.7, RBC 4.18 L, Hgb 11.3 L, Hct 36.0 L, MCV 86.1, MCH 27.0, MCHC 31.4 L, RDW Std Deviation 47.4 H, RDW Coeff of Rani 15.1 H, Plt Count 148 L, MPV 9.6, Immature Gran % (Auto) 1.400 H, Neut % (Auto) 73.3 H, Lymph % (Auto) 12.3 L, [place] % (Auto) 12.6 H, Eos % (Auto) 0.0, Baso % (Auto) 0.4, Absolute Neuts (auto) 4.2, Absolute Lymphs (auto) 0.70 L, Nucleated RBC % 0, Sodium 137, Potassium 3.7, Chloride 106, Carbon Dioxide 25.0, Anion Gap 6, BUN 10, Creatinine 0.77, Estim Creat Clear Calc 158.49, Est GFR (MDRD) Af Amer 99, Est GFR (MDRD) Non-Af 82, BUN/Creatinine Ratio 12.9, Glucose 110 H, Calcium 8.6, Vancomycin Trough 19.5 H 05/09/24 06:20: Sodium 137, Potassium 3.6, Chloride 103, Carbon Dioxide 28.0, Anion Gap 6, BUN 12, Creatinine 0.74, Estim Creat Clear Calc 164.91, Est GFR (MDRD) Af Amer 105, Est GFR (MDRD) Non-Af 87, BUN/Creatinine Ratio 16.3, Glucose 109 H, Calcium 8.9 Micro: Microbiology 05/04/24 18:35 Blood Culture (Wb) - Arm Right Blood Culture - Preliminary No growth in 48 hours. 05/04/24 18:36 Blood Culture (Wb) - Anticubital Left Blood Culture - Preliminary No growth in 48 hours. 05/05/24 04:18 Stool Stool Lactoferrin - Final 05/05/24 04:18 Stool Enteric Bacteriology - Final 05/05/24 04:18 Stool Clostridioides difficile (PCR) - Final Physical Exam HEENT head/scalp atraumatic and moist oral mucous membranes Neck no lymphadenopathy Resp normal respiratory effort and no retractions Extremity Extremity Narrative: Overall resolving erythema of the distal lower extremity medially. Still with swelling and slight tenderness palpation. No fluctuance appreciated. Assessment & Plan Assessment/Plan (1) Cellulitis: QUALIFIERS: Laterality: right Site of cellulitis: extremity Site of cellulitis of extremity: lower extremity Qualified Code(s): L03.115 - Cellulitis of right lower limb (2) Leukocytosis: QUALIFIERS: Leukocytosis type: unspecified Qualified Code(s): D72.829 - Elevated white blood cell count, unspecified (3) Morbid obesity: (4) Lymphedema associated with obesity: PLAN: Plan Right leg cellulitis Recurrent currently improving. did take recommended abx as instructed due to diarrhea (cefdinir daily, rather than BID) on pip/tazo and vanc ID following CT: showed diffuse increased markings in the subcutaneous fat in the distal medial posterior aspect of the right thigh with overlying skin thickening. Patient notes that she uses an antiperspirant that the roll-on on the underside of her right leg fold. I advised against out as I cannot determine if she may have some localized irritation that may make her susceptible to recurrent infections. Advised to keep the area clean and dry in the future. Patient received some furosemide on the ninth. Will hold off on giving any additional at this time. Diarrhea Improved likely antibiotic induced. C. difficile and additional studies are negative. Add loperamide as needed Chronic conditions Obesity Class III: complicates care and recovery. Weight loss will be recommended. Obesity hypoventilation syndrome; continue CPAP Essential hypertension: stable. continue lisinopril Asthma: compensated. 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 Waiting on final ID recommendations. But patient can be discharged today I would likely give her the rest of the week off so this area of cellulitis can improve to hopefully prevent it from getting really aggravated. Patient has FMLA forms on the chart. I will fill those out when it is determined when patient may be discharged. Greater than 35 minutes of which greater than 50% time was spent at bedside discussed with the patient about her cellulitis and treatment and also discussing return to work and FMLA forms. Charges/Coding Visit Charges Inpatient E&M: 92693 Subs Hosp L2
--- NOTE | 2024-05-09 08:52 | WOUNDNOTE ---
Redness to the right leg continues to improve. no open areas noted. will continue to monitor.
[2024-05-09] MEDS: Ferrous Sulfate 325 MG Tablet PO (12:28)
[2024-05-09 13:30] VITALS: BP 118/65; PULSE 63; RESP 18; TEMP 36.7; O2SAT 98
--- NOTE | 2024-05-09 14:05 | PCM.PN.ID ---
Physical Exam Narrative Feeling better, leg less sore and red, no fever, no diarrhea Const alert and no apparent distress General Appearance: cooperative Resp normal air movement and clear to auscultation bilaterally Cardio regular rate and regular rhythm GI soft to palpation, non-tender and non-distended Extremity General Extremity: edema Skin Skin Narrative: RLE less red, less sore ID ID: Route of nutrition/ use of supplements: [] Nutritional Intake: [] IV Site: [] Galeano Catheter: [] Assessment & Plan Assessment/Plan (1) Cellulitis: QUALIFIERS: Site of cellulitis: extremity Site of cellulitis of extremity: lower extremity Laterality: right Qualified Code(s): L03.115 - Cellulitis of right lower limb PLAN: Improving. On vanc/cefazolin. Nonpurulent cellulitis. Cdiff neg, now on probiotic. Diarrhea resolved. Ok for home with 10 days po doxy and keflex. Counseled her best way to prevent recurrence will be use PROMISE wraps in AM, use lymphedema pumps in evening. Will follow (2) Lymphedema associated with obesity: (3) Diarrhea:
--- NOTE | 2024-05-09 14:41 | DS.PCM_ITS ---
Providers Date of Admission: 05/04/24 Primary Care Physician: VJ Maloney Consultations 05/04/24 20:26 Consult: Infectious Disease Routine Consulting Provider: Wander Garcia Reason for Consult: Recurrent Right thigh cellulitis. EMERGENT Consult: No MD Notified: Yes Date Notified: 05/05/24 Time Notified: 08:27 Method of Notification: Text 05/05/24 07:42 Consult: Onc/Wound/flatcar whacker Routine Comment: Reason For Visit: RIGHT THIGH CELLULITIS; RECURRENT. Diagnosis Discharge Diagnosis (1) Cellulitis: Status: Acute Code(s): L03.90 - Cellulitis, unspecified Qualifiers: Site of cellulitis: extremity Site of cellulitis of extremity: lower extremity Laterality: right Qualified Code(s): L03.115 - Cellulitis of right lower limb (2) Lymphedema associated with obesity: Status: Acute Code(s): I89.0 - Lymphedema, not elsewhere classified; E66.9 - Obesity, unspecified (3) Diarrhea: Status: Acute Code(s): R19.7 - Diarrhea, unspecified Plan Right leg cellulitis * Recurrent currently improving. * did take recommended abx as instructed due to diarrhea (cefdinir daily, rather than BID) * on pip/tazo and vanc * ID following * CT: showed diffuse increased markings in the subcutaneous fat in the distal medial posterior aspect of the right thigh with overlying skin thickening. * Patient notes that she uses an antiperspirant that the roll-on on the underside of her right leg fold. I advised against out as I cannot determine if she may have some localized irritation that may make her susceptible to recurrent infections. Advised to keep the area clean and dry in the future. * Patient received some furosemide on the ninth. Will hold off on giving any additional at this time. Diarrhea * Improved * likely antibiotic induced. C. difficile and additional studies are negative. * Add loperamide as needed Chronic conditions * Obesity Class III: complicates care and recovery. Weight loss will be recommended. * Obesity hypoventilation syndrome; continue CPAP * Essential hypertension: stable. continue lisinopril * Asthma: compensated. 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 Waiting on final ID recommendations. But patient can be discharged today I would likely give her the rest of the week off so this area of cellulitis can improve to hopefully prevent it from getting really aggravated. Patient has FMLA forms on the chart. I will fill those out when it is determined when patient may be discharged. Greater than 35 minutes of which greater than 50% time was spent at bedside discussed with the patient about her cellulitis and treatment and also discussing return to work and FMLA forms. Medications at Discharge Home Medications acetaminophen 500 mg capsule 1,000 mg PO Q6H PRN Pain 07/11/21 aspirin 81 mg tablet,delayed release (Adult Low Dose Aspirin) 81 mg PO DAILY blood thinner 07/11/21 ferrous sulfate 325 mg (65 mg iron) tablet (FeroSul) 325 mg PO DAILY@1200 iron #30 tabs 08/01/21 venlafaxine 75 mg capsule,extended release 24 hr (Effexor XR) 225 mg (3 x 75 mg) PO DAILY depression #90 caps 09/03/21 lisinopril 10 mg tablet 10 mg PO DAILY blood pressure 07/24/23 omeprazole 40 mg capsule,delayed release 40 mg PO DAILY stomach 07/24/23 nystatin 100,000 unit/gram topical powder (Nyamyc) 1 applic topical BID yeast infection 30 days #60 grams 07/31/23 cholecalciferol (vitamin D3) 1 tab PO DAILY supplement 04/04/24 valacyclovir 1 gram tablet 2,000 mg PO BID PRN cold sore 04/07/24 clotrimazole 1 % topical cream 1 applic topical BID 05/04/24 L.acidophil,salivari-Bifido bifidum-Strep thermoph 175 mg capsule 1 cap PO BID 10 days #20 caps 05/09/24 cephalexin 500 mg capsule 500 mg PO 4X/DAY #40 caps 05/09/24 docusate sodium 100 mg capsule 100 mg PO BID #0 caps 05/09/24 doxycycline hyclate 100 mg capsule 100 mg PO BID #20 caps 05/09/24 loperamide 2 mg capsule 2 mg PO Q4H PRN PRN DIARRHEA #0 caps 05/09/24 oxycodone 5 mg tablet 5 mg PO Q4H PRN PRN Pain Score 6-10 3 days #12 tabs 05/09/24 Hospital Course Operations None Procedures PICC line placement Summary of Care Provided Minutes Spent on Discharge: 35 Hospital Course: Patient presents with recurrent right lower extremity cellulitis. Patient was started on antibiotics with cefazolin and vancomycin. Patient was seen in consultation by infectious diseases as well as recurrent. Patient did have a CAT scan that showed cellulitis and no development of any abscess. Patient has responded well with the antibiotics. Patient will be discharged with doxycycline and cephalexin. Patient concerned as this has been recurrent and she had been already on a 10-day course of antibiotics for this to recur. Recommended when the patient goes home to keep the area clean and dry and to avoid the roll-on antiperspirant that she was using on the underside of her leg as that may potentially be causing some localized irritation or may be nidus of infection itself. Patient will be off work and return on the . Weight / BMI Weight Weight: 225.6 kg Body Mass Index (BMI) 84.9 ABG / Lab / Microbiology Data 05/08/24 08:34 05/09/24 06:20 Laboratory: Laboratory Results - last 24 hr 05/09/24 06:20: Sodium 137, Potassium 3.6, Chloride 103, Carbon Dioxide 28.0, Anion Gap 6, BUN 12, Creatinine 0.74, Estim Creat Clear Calc 164.91, Est GFR (MDRD) Af Amer 105, Est GFR (MDRD) Non-Af 87, BUN/Creatinine Ratio 16.3, Glucose 109 H, Calcium 8.9 Microbiology: Microbiology 05/04/24 18:35 Blood Culture (Wb) - Arm Right Blood Culture - Preliminary No growth in 48 hours. 05/04/24 18:36 Blood Culture (Wb) - Anticubital Left Blood Culture - Preliminary No growth in 48 hours. 05/05/24 04:18 Stool Stool Lactoferrin - Final 05/05/24 04:18 Stool Enteric Bacteriology - Final 05/05/24 04:18 Stool Clostridioides difficile (PCR) - Final D/C Instructions Discharge Diet: No restrictions Return to work on: 05/16/24 Meaningful Use Info Meaningful Use Meaningful Use Diagnoses (Choose all that apply): None applicable Ischemic Stroke Statin Dosing Therapy Reference: STATIN DOSE THERAPY REFERENCE: * Patients > 75 years receive moderate or high dose statin therapy. * Patients 75 years or YOUNGER should receive HIGH intensity statin dose unless contraindicated. You will be required to document reason for non-treatment if statin daily dose does not meet guidelines. HIGH DOSE STATIN THERAPY DAILY Atorvastatin > than or = to 40 mg Rosuvastatin > than or = to 20 mg Amlodipine + Atorvastatin > than or = to 2.5/40 mg Ezetimibe + Simvastatin 10/80 mg Simvastatin 80mg Discharge Plan Admission Admit Date/Time: 05/04/24 19:44 Primary Reason for Your Visit: Right leg cellulitis Attending Provider: Antoni Abudl Primary Care Provider: Helena Crews Consulting Providers: Calderon Tom; Wander Garcia Instructions Additional Instructions / Restrictions: Try to keep legs wrapped with [place] wrap's to help with the edema in your legs. Keep your legs elevated when at rest if you are able. Notify your physician or return to the emergency room if your legs are becoming more red or having increased fever and chills. Discharge Orders/Prescriptions Prescriptions: Marcus Copebif-S.therm 175 mg Capsule 1 cap PO BID 10 Days Qty: 20 0RF doxycycline hyclate 100 mg capsule 100 mg PO BID Qty: 20 0RF cephalexin 500 mg capsule 500 mg PO 4X/DAY Qty: 40 0RF docusate sodium 100 mg Capsule 100 mg PO BID Qty: 0 0RF loperamide 2 mg Capsule 2 mg PO Q4H PRN PRN (Reason: DIARRHEA) Qty: 0 0RF oxycodone 5 mg Tablet 5 mg PO Q4H PRN PRN (Reason: Pain Score 6-10) 3 Days Qty: 12 0RF Continued acetaminophen 500 mg capsule 1,000 mg PO Q6H PRN (Reason: Pain) aspirin [Adult Low Dose Aspirin] 81 mg tablet,delayed release (DR/EC) 81 mg PO DAILY ferrous sulfate [FeroSul] 325 mg (65 mg iron) Tablet 325 mg PO DAILY@1200 Qty: 30 0RF venlafaxine [Effexor XR] 75 mg capsule,extended release 24hr 225 mg PO DAILY Qty: 90 0RF Rx Instructions: take 3 capsules every AM omeprazole 40 mg capsule,delayed release(DR/EC) 40 mg PO DAILY lisinopril 10 mg tablet 10 mg PO DAILY nystatin [Nyamyc] 100,000 unit/gram Powder 1 applic topical BID 30 Days Qty: 60 0RF Protocol: *Topical Application Instructions APPLICATION INSTRUCTIONS: apply to skin folds, particularly BLE cholecalciferol (vitamin D3) 1 tab PO DAILY Patient Comments: PT UNAWARE OF DOSAGE valacyclovir 1 gram tablet 2,000 mg PO BID PRN (Reason: cold sore) Patient Comments: x1 day clotrimazole 1 % cream 1 applic topical BID Rx Instructions: APPLY TO AFFECTED AREA TOPICALLY ( BETWEEN TOES, BOTTOM OF FOOT, SIDE OF FOOT TWICE DAILY UNTIL 1 WEEK AFTER RESOLUTION OF SYMPTOMS Referrals / Follow Up: Helena Crews PA [Primary Care Provider] - Within 1 Week Disposition Disposition (needs filled in before D/C Order can be placed): Home, Self Care Charges/Coding Visit Charges Inpatient E&M: 89980 Disch Hosp >30min
--- NOTE | 2024-05-09 15:23 | CASEMGMT ---
RN CM into pt room, pt lying in bed in no distress. Pt states no concerns or needs with going home. Asked for paperwork from Dr. Abdul for work purposes showing how long she should be off work, provided signed papers to her.
--- NOTE | 2024-05-09 19:10 | NURSING ---
This nurse attempted to remove PICC line from left arm. PICC dressing removed, PICC was unable to be removed, resistance noted. Arm repositioned and PICC still unable to be removed. This nurse covered site and waited 5 minutes, having patient relax. PICC still with resistance noted. Warm compress applied to arm and Iris SUBRAMANIAN, nursing supervisor scouring pads notified. Patient continuing to lay flat in bed.
--- NOTE | 2024-05-09 22:42 | NURSING ---
ENTRY LEVEL BUSINESS ANALYST came to floor and removed PICC prior to patient discharge. pt laid flat for 30minutes after and denied any symptoms from PICC removal.
== END 2024-05-09 20:45 | disposition home or self-care (01) | DRG 603 ==
LOC: ED 19:28 → MS3 21:09
PROVIDERS: Internal Medicine Infectious Disease; Admitting Provider Internal Medicine; Emergency Provider Emergency Medicine; PCP Physician Assistant
DX: L03.115 Cellulitis of right lower limb (principal); E66.2 Morbid (severe) obesity with alveolar hypoventilation; Z68.45 Body mass index [BMI] 70 or greater, adult; E11.65 Type 2 diabetes mellitus with hyperglycemia; D50.9 Iron deficiency anemia, unspecified; D72.829 Elevated white blood cell count, unspecified; I10 Essential (primary) hypertension; J45.909 Unspecified asthma, uncomplicated; F41.8 Other specified anxiety disorders; M19.90 Unspecified osteoarthritis, unspecified site; K58.2 Mixed irritable bowel syndrome; I89.0 Lymphedema, not elsewhere classified; G47.61 Periodic limb movement disorder; Z79.82 Long term (current) use of aspirin; Z87.891 Personal history of nicotine dependence; T50.905A Adverse effect of unspecified drugs, medicaments and biological substances, initial encounter
CPT/HCPCS: 36415; 36569; 73701; 80048; 80053; 80202; 83036; 83605; 83630; 83735; 84100; 85025; 87040; 87493; 87506; 94640; 97110; 97116; 97162; 97530; 99283; J7030; J7040; Q9967; A4216; J1940

== ENCOUNTER 2025-06-10 23:45 | Inpatient (IN) | payer BC, SELFPAY ==
[2025-06-10 23:46] VITALS: BP 178/62; PULSE 107; RESP 25; TEMP 39.4; O2SAT 94; BMI 91.2
--- NOTE | 2025-06-10 23:57 | EKG12_ITS ---
Test Reason : DYSRHYTHMIA Blood Pressure : */* mmHG Vent. Rate : 84 BPM Atrial Rate : 84 BPM P-R Int : 150 ms QRS Dur : 76 ms QT Int : 356 ms P-R-T Axes : 54 44 46 degrees QTcB Int : 420 ms Normal sinus rhythm Low voltage QRS Septal infarct (cited on or before 17-Aug-2023) Abnormal ECG Confirmed by SATHYA LAL, RAMIREZ ([id number]), editorial cartoonist SHARITA ALFREDO ([id number]) on 06/12/2025 11:36:16 AM Referred By: Confirmed By: RAMIREZ MCDONNELL MD
--- NOTE | 2025-06-10 23:59 | RAD_ITS ---
PROCEDURE: CHEST PA AND LATERAL 06/10/2025 REASON FOR EXAM: SHORTNESS OF BREATH TECHNIQUE: CHEST PA AND LATERAL COMPARISON: 08/17/2023. FINDINGS: The heart is enlarged. Vascular indistinctness suggestive of edema. No acute osseous abnormalities. RAD/Chest PA and Lateral IMPRESSION: As above. Reading Location: [place] [address]
[2025-06-11] VITALS (17 sets, daily range): BP systolic 104–138; BP diastolic 53–96; PULSE 70–104; RESP 16–38; TEMP 36.9–39.2; O2SAT 94–100; BMI 88.7
--- NOTE | 2025-06-11 00:10 | ED.VIS.DYS ---
HPI History of Present Illness Chief Complaint: Shortness of Breath Narrative Narrative: Chief complaint and HPI: Shortness of breath and bilateral lower extremity cellulitis. 55-year-old female with past medical history of morbid obesity, MIGUEL, IBS, depression presents for evaluation of bilateral lower extremity cellulitis and shortness of breath. Patient states for the past several days she has been having increased redness to her bilateral lower extremities. She states today she developed fever and exertional dyspnea. States she has a chronic cough. She denies any chest pain, abdominal pain, nausea, vomiting, dysuria. States she has baseline incontinence. Patient states she has a past medical history of recurrent sepsis. Review of systems: See HPI Medications: As listed on the chart Allergies: As listed on the chart PFSH: Per chart Vital signs: As listed on the chart. Reviewed. Physical exam: Gen: A&O x3, dyspneic when speaking although patient did just ambulate Head: Normocephalic, atraumatic Eyes: No sclera icterus, conjunctiva clear, PERRL ENT: Moist mucous membranes Neck: Trachea midline, No JVD CV: RRR, no murmurs, no peripheral edema Resp: Lungs diminished and difficult to auscultate secondary to her body habitus, dyspneic when speaking, tachypneic GI: Abd soft, non-distended, non-tender, no r/r/g Musc: Moves all extremity, no deformity Skin: Warm, dry, cellulitis of bilateral lower extremities Neuro: Alert, oriented, grossly intact, sensation intact Psych: Cooperative, appropriate mood and affect [facility] Medical History Hyperglycemia Failure of outpatient treatment Ascending aorta dilatation Abnormal echocardiogram IBS (irritable bowel syndrome) Depression Heel spur Osteoarthritis (arthritis due to wear and tear of joints) Asthma GERD without esophagitis Insomnia Anxiety Home Medications ?Medication ?Instructions ?Recorded ?Last Taken ?Type acetaminophen 500 mg capsule 1,000 mg PO Q6H PRN Pain 07/11/21 05/04/24 History ferrous sulfate 325 mg (65 mg 325 mg PO DAILY@1200 iron #30 tabs 08/01/21 06/09/25 Rx iron) tablet (FeroSul) venlafaxine 75 mg capsule,extended 225 mg (3 x 75 mg) PO DAILY 09/03/21 06/09/25 Rx release 24 hr (Effexor XR) depression #90 caps lisinopril 10 mg tablet 10 mg PO DAILY blood pressure 07/24/23 06/09/25 History nystatin 100,000 unit/gram topical 1 applic topical BID yeast 07/31/23 05/04/24 Rx powder (Nyamyc) infection 30 days #60 grams cholecalciferol (vitamin D3) 1 tab PO DAILY supplement 04/04/24 06/09/25 History valacyclovir 1 gram tablet 2,000 mg PO BID PRN cold sore 04/07/24 Unknown History L.acidophil,salivari-Bifido 1 cap PO BID 10 days #20 caps 05/09/24 06/09/25 Rx bifidum-Strep thermoph 175 mg capsule [id number]-vit C 1 tab PO DAILY 06/11/25 Unknown History albuterol sulfate 2.5 mg/3 mL 2.5 mg continuous nebulization Q4H 06/11/25 Unknown History (0.083 %) solution for nebulization PRN PRN dyspnea buspirone 5 mg tablet 5 mg PO BID mood 06/11/25 06/09/25 History calcium carbonate (Ally-[place] 600 mg PO TID PRN dyspepsia 06/11/25 06/09/25 History Heartburn Chew) cholestyramine (with sugar) 4 gram 2 - 4 ea PO DAILY supp 06/11/25 06/09/25 History oral powder multivitamin (Daily Multi-Vitamin 1 tab PO DAILY supp 06/11/25 06/09/25 History tablet) pantoprazole 20 mg tablet,delayed 20 mg PO DAILY stomach 06/11/25 06/09/25 History release Allergy/AdvReac Type Severity Reaction Status Date / Time adhesive tape AdvReac Unknown Other Verified 04/04/24 19:07 Family History Mother Alzheimer's dementia Surgical History H/O foot surgery History of hip surgery History of cholecystectomy Social History household members: spouse housing: house number of children: 1 current occupational status: employed 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 For lunch she has a bowl of soup and crackers which she takes to work. Sometimes has pretzels for a snack. Eats lunch at 12:30- 1 and does not get home until 7 PM and then she is starved. Her sometimes cooks and it is usually not healthy and may include pizza, hot dogs, fast food. Does not plan meals and her hisband is not supportive of healthy eating. He is a little overweight and likes to eat junk. EXAM Physical Exam Const Vital Signs: 06/10/25 23:46 06/11/25 00:12 06/11/25 00:45 Temperature 102.9 F H Temperature Source Axillary Pulse Rate 107 H 91 Respiratory Rate 25 H 20 H Respiratory Effort Labored Respiratory Pattern Normal Blood Pressure 178/62 H Blood Pressure Mean 100 Pulse Ox 94 Oxygen Delivery Method Room Air 06/11/25 00:46 06/11/25 00:51 06/11/25 01:00 Temperature 101.2 F H 101.2 F H Temperature Source Oral Oral Pulse Rate 91 100 98 Respiratory Rate 16 20 H Respiratory Effort Respiratory Pattern Blood Pressure 138/76 H 130/70 H Blood Pressure Mean 96 90 Pulse Ox 96 95 Oxygen Delivery Method Room Air 06/11/25 02:22 06/11/25 02:24 Temperature 100.8 F H Temperature Source Oral Pulse Rate 94 Respiratory Rate 22 H Respiratory Effort Respiratory Pattern Blood Pressure 109/60 109/60 Blood Pressure Mean 76 76 Pulse Ox 96 Oxygen Delivery Method Room Air MDM MDM MDM Narrative Medical decision making narrative: 55-year-old female with past medical history of morbid obesity, MIGUEL, IBS, depression presents for evaluation of bilateral lower extremity cellulitis and shortness of breath. Patient states she has a recurrent history of sepsis. On presentation, patient is short of breath, dyspneic when speaking, tachypneic however she did just ambulate out of the car. She is tachycardic and febrile with a temperature of 102.9. Patient has cellulitis to the bilateral lower extremities. Her lungs are difficult to auscultate secondary to her body habitus. Patient meets sepsis criteria based on vital signs. Will do fluids based on ideal body weight, 30 cc/kg bolus ordered for ideal body weight which places her at 2 L. Tylenol and DuoNeb. Sepsis workup ordered. Will give Zosyn and vancomycin prophylactically as differential diagnosis includes but is not limited to bilateral lower extremity cellulitis, pneumonia, viral illness, UTI, bacteremia, electrolyte abnormality, pneumonia. CBC with leukocytosis of 13.1. No anemia. Coagulation panel unremarkable. CMP unremarkable. Lactic acid elevated 2.4. Patient receiving fluids. Troponin unremarkable x 2. BNP unremarkable. UA negative for UTI. Patient's sepsis is likely secondary to her bilateral lower extremity cellulitis. Patient will warrant admission. Spoke with the hospitalist who accepted. After patient was accepted, she became tachypneic and began hyperventilating. DuoNeb was ordered. We did practice on her breathing techniques. We attempted ABG but this was unable to be obtained. VBG unremarkable. EKG: Interpreted by me/EM physician: EKG shows normal sinus rhythm without acute ischemic changes. Heart rate 84. Diagnostic: Interpreted by me/EM physician: Chest x-ray with cardiomegaly but without pneumonia, cardiomegaly, pneumothorax, large effusion. Radiology in agreement. Impression: 1. Sepsis secondary to bilateral lower extremity cellulitis 2. Lactic acidosis secondary to #1 3. Morbid obesity Lab Data Labs: Laboratory Results - last 24 hr 06/11/25 06/11/25 06/11/25 00:05 00:30 02:13 WBC 16.1 H RBC 4.60 Hgb 12.6 Hct 39.1 MCV 85.0 MCH 27.4 MCHC 32.2 RDW Std Deviation 45.9 H RDW Coeff of Rani 15.0 H Plt Count 163 MPV 9.5 Immature Gran % (Auto) 1.300 H Neut % (Auto) 90.9 H Lymph % (Auto) 2.0 L [place] % (Auto) 5.7 Eos % (Auto) 0.0 Baso % (Auto) 0.1 Absolute Neuts (auto) 14.6 H Absolute Lymphs (auto) 0.32 L Nucleated RBC % 0 PT 13.6 INR 1.0 APTT 29.1 Sodium 134 Potassium 4.6 Chloride 96 L Carbon Dioxide 26.1 Anion Gap 12 BUN 19 Creatinine 0.93 Estim Creat Clear Calc 136.23 Est GFR (MDRD) Non-Af 71 BUN/Creatinine Ratio 20.2 H Glucose 130 H Hemoglobin A1c 6.2 H Lactic Acid 2.4 H* Calcium 9.4 Total Bilirubin 0.52 AST 30 ALT 24 Alkaline Phosphatase 88 Troponin T High Sens 12 Troponin T Hi Sens 2 Hr 14 NT pro BNP II 284 Total Protein 7.3 Albumin 4.0 Globulin 3.3 Albumin/Globulin Ratio 1.2 Urine Color Straw Urine Clarity Clear Urine pH 7.0 Ur Specific [place] 1.010 Urine Protein Negative Urine Glucose (UA) Normal Urine Ketones Negative Urine Occult Blood 10 H Urine Nitrite Negative Urine Bilirubin Negative Urine Urobilinogen Normal Ur Leukocyte Esterase Negative Urine RBC 5-10 SEEN Urine WBC 0 SEEN Ur Squamous Epith Cells 5-10 SEEN Urine Bacteria 0 SEEN Urine Mucus 0 SEEN Radiography Diagnostic Testing: Clinical Impression(s) from Imaging Studies Chest X-Ray 06/10/25 23:59 IMPRESSION: As above. Reading Location: [place] [id number] Discharge Plan Disposition Disposition: Acute Care Hospital [facility] Discharge Date/Time: 06/11/25 05:15
[2025-06-11 00:17] LABS: Hematocrit 39.1 % (37-47); Hemoglobin 12.6 g/dL (12.0-15.0); Immature Granulocytes Count 0.210 X10^3/uL (0.0-0.0); Mean Corp Hgb Conc 32.2 g/dL (32-36); Mean Corpuscular Volume 85.0 fL (81-99); Mean Platelet Vol. 9.5 fl (6.2-12.0); NRBC Flagged by Analyzer 0 % (0-5); POSITIVE DIFFERENTIAL YES; Platelet Count 163 K/mm3 (150-450); RBC Distribution Width CV 15.0 % (11.6-14.6); RBC Distribution Width SD 45.9 fl (35.1-43.9); Red Blood Count 4.60 M/mm3 (4.2-5.4); White Blood Count 16.1 K/mm3 (4.4-11.0)
[2025-06-11] MEDS: 0.9% Normal Saline (1000mL) 1,000 ML 999 ML IV ×2 (00:22→03:04)
[2025-06-11 00:31] LABS: Partial Thromboplast Time 29.1 Seconds (24.1-36.2); Prothrombin Time (Protime)PT. 13.6 SECONDS (11.7-14.9)
[2025-06-11] MEDS: Piperacil/Tazobactam 4.5 GM in 0.9% Normal Saline (100mL MB+) 100 ML IV (00:35)
[2025-06-11 00:40] LABS: Glucose, Dipstick Normal (Normal); Ketone-Dipstick Negative (Negative); Leukocyte Esterase-Dipstick Negative /ul (Negative); Mucous, Urine 0 SEEN /hpf (<or=2+); Nitrite-Dipstick Negative (Negative); Occult Blood-Urine 10 /ul (Negative); Protein-Dipstick Negative (Negative); Specific Gravity, Urine 1.010 (1.002-1.030); Urine Bilirubin Dipstick Negative (Negative)
[2025-06-11 00:47] LABS: Color, Urine Straw (Yellow)
[2025-06-11 01:03] LABS: Red Blood Cells-Urine 5-10 SEEN /hpf (0-5); Squamous Epithelial Cells - UA 5-10 SEEN /hpf (5-10)
--- OUTSIDE RECORDS SUMMARY | 2025-06-11 01:04 | XMS RPT_ITS | CCD ---
Author Organization [facility] Care Team Providers Care Food Vendor Name Role Phone Unavailable Unavailable Unavailable ConnGenetFanta C Unavailable Unavailable Conn Fanta C Unavailable Unavailable Unavailable Primary Care Provider Unavailabl e Unavailable Primary Care Provider Unavailabl e Mars MCLAIN, Alondra Liz Primary Care Provider ALONDRA CREWS Attending Unavailable ALONDRA CREWS Primary Care Unavailable ALONDRA CREWS Admitting Unavailable Unavailable Primary Care Provider Unavailabl e VJ Esquivel Primary Care Provider VJ Esquivel Referring Provider Dr. Suman Johnson Attending Provider Unknown, Referring Provider Unavailable Unav ailable Unavailable Unavailable VJ Esquivel Primary Care Provider Dr. Antoni Osman Attending Provider Dr. Arthur Lara Emergency Provider Dr. Adrianna Mejia Admit Provider Dr. Adrianna Mejia Attending Provider Dr. Adrianna Mejia Other Provider Dr. Kolby Guan Referring Provider Dr. Betty Calvin Attending Provider Dr. Betty Calvin Other Provider Dr. Wander Garcia Other Provider Dr. Humberto Huggins Attending Provider Dr. Betty Calvin Referring Provider Dr. Mandy Arce Emergency Provider [phone] Arthur Thompson Admit Provider Dr. Arthur Thompson Referring Provider Dr. Arthur Thompson Other Provider Dr. Calderon Ware Attending Provider Unavailable Dr. Calderon Ware Other Provider Unavailable Mars PA-C, Alondra A Primary Care Provider [phone] HELDER TAVERA Attending Unavailable CREWS, ALONDRA Referring Unavailable CREWS, ALONDRA Primary Care Unavailable Khaitan, Dr. Null Attending Unavailable Khaitan, Dr. Null Referring Unavailable UNKNOWN, PCP Primary Care Unavailable Khaitan, Dr. Null Attending Unavailable Khaitan, Dr. Null Referring Unavailable UNKNOWN, PCP Primary Care Unavailable Crews PA-C, Alondra J Unavailable Crews PA-C, Alondra J Unavailable Infectious Disease Provider Unavailable Unav ailable Cardiology Provider Unavailable Unavailable Minerva PERSONAL LINES INSURANCE AGENT, Nora Unavailable Unavaila ble Rodney PERSONAL LINES INSURANCE AGENT, Ashley Unavailable Unavailable Eloy PERSONAL LINES INSURANCE AGENT, Carlo Unavailable Unavailable Frank PERSONAL LINES INSURANCE AGENT, Jazlyn M Unavailable Unavailab le Brian MA, Ashley Unavailable Unavailable Zaugg PERSONAL LINES INSURANCE AGENT, Cadence Unavailable Unavailable Unavailable Unavailable Suarez PERSONAL LINES INSURANCE AGENT, Ceci Unavailable Unavailabl e Mars ZABALA PA Alondra Primary Care Provider Dr. Gian Villanueva Emergency Provider Dr. Calderon Ojeda Admit Provider Unavailabl e Dr. Calderon Ojeda Other Provider Unavailanna e Dr. Rubin Hadley Attending Provider Dr. Rubin Hadley Other Provider Dr. Antoni Osman Attending Provider [phone] Wander Garcia Other Provider Dermatology Provider Unavailable Unavailable Rheumatolgy Provider Unavailable Unavailable Calderon Ojeda Admitting Unavailable Calderon Ojeda Consulting Unavailable Rubin Hadley Attending Unavailable Mars ZABALA, Alondra Primary Care Unavailable Wander Garcia Consulting Unavailable Rubin Hadley Consulting Unavailable Calderon Ojeda Consulting Unavailable Calderon Ojeda Admitting Unavailable Lorena Treviño Attending Unavailable Mars ZABALA, Alondra Primary Care Unavailable Wander Garcia Consulting Unavailable Antoni Abdul Consulting Unavailable Betty Calvin Referring Unavailable Humberto Huggins Attending UnavailRod ZABALA, Alondra Primary Care Unavailable Antoni Osman Attending Unavailable Rubin Hadley Referring Unavailable Mars ZABALA, Alondra Primary Care Unavailable Antoni Abdul Attending Unavailable Arthur Thompson Consulting Unavailable Arthur Thompson Admitting Unavailable Calderon Ware Attending Unavailable Mars ZABALA, Alondra Primary Care Unavailable Arthur Thompson Referring Unavailable Wander Garcia Consulting Unavailable Calderon Ojeda Consulting Unavailable Calderon Ojeda Admitting Unavailable Rubin Hadley Attending Unavailable Mars ZABALA, Alondra Primary Care Unavailable Wander Garcia Consulting Unavailable Calderon Ojeda Consulting Unavailable Calderon Ojeda Admitting Unavailable Antoni Abdul Attending Unavailable Mars ZABALA, Alondra Primary Care Unavailable Wander Garcia Consulting Unavailable Arthur Thompson Referring Unavailable Jay, Arthur Attending Unavailable Arthur Thompson Consulting Unavailable Mars ZABALA, Alondra Primary Care Unavailable Arthur Thompson Admitting Unavailable Calderon Ware Attending Unavailable Wander Garcia Consulting Unavailable Calderon Ware Consulting Unavailable Calderon Ojeda Attending Unavailable Calderon Ojeda Attending Unavailable Mars MCLAIN, Alondra J Primary Care Provider [phone] ALONDRA CREWS Admitting Unavailable YAMILE SMALLWOOD Attending Unavailanna gutierrez PROVIDER, GENERIC EMS Referring UnavailALONDRA Quinn Primary Care Unavailable YAMILE SMALLWOOD Attending UnavailALONDRA Quinn [facility] Unavailable Allergies Allergy Classification Reported Allergen(s) Allergy Type Date of Onset Reaction(s) Facility (1 source) Adhesive Tape Drug allergy (disorder) 04-04-2024 [facility] Repository Medications Current Medications Medication Drug Class(es) Dates Sig (Normalized) Sig (Original) acetaminophen 500 mg oral capsule (12 sources) Start: 07-11-2021 take 1000 mg by mouth every six hours Acetaminophen Active 1000 MG PO EVERY 6 HOURS July 11, 2021 12:00am Start: 07-03-2021 End: 07-03-2021 Start: 06-02-2021 End: 06-03-2021 take 325-650 mg by mouth every four hours as needed acetaminophen (TYLENOL) tablet 325-650 mg Start: 06-02-2021 End: 06-02-2021 acetaminophen (TYLENOL) tabl et 650 mg [id number] 200 actuat albuterol 0.09 mg/actuat metered dose inhaler (20 sources) beta2-Adrenergic Agonist Start: 03-14-2023 albut katia 108 (90 Base) MCG/ACT inhaler Start: 08-01-2021 End: 07-24-2023 take 1 puff(s) by inhalation every six hours as needed Albuterol Sulfate (Ventolin Hfa) 90 mcg/actuation Hfa Aerosol Inhaler Discontinued 2 PUFF INHALATION EVERY 6 HOURS NEEDED August 01, 2021 12:00am July 24, 2023 11:28pm Start: 07-03-2021 End: 07-03-2021 Start: 05-31-2021 take 2 puff(s) by mo uth every four to six hours as needed for wheezing albuterol 108 (90 Base) MCG/ACT Aero Soln inhaler INHALE 2 PUFFS BY MOUTH EVERY 4 TO 6 HOURS NEEDED DIRECTED FOR WHEEZING AND FOR SHORTNESS OF BREATH 0 05/31/2021 Active take 90 ug by inhala tion every six hours as needed Albuterol 90 MCG/ACT Inhalation Aerosol Solution ; q6 hr prn (90 MCG/ACT) Status: Inactive albuterol 0.833 mg/ml / ipratropium bromide 0.167 mg/ml inhalation solution (6 sources) Anticholinergic, beta2-Adrenergic Agonist Start: 07-03-2021 Start: 06-29-2021 1 ampule, Inha lation, 2 TIMES DAILY, First dose (after last modification) on 06/29/21 at 0900 Start: 06-22-2021 End: 06-28-2021 1 ampule, Inhalation, 3 TIME S DAILY, First dose (after last modification) on 06/22/21 at 2000 Start: 06-22-2021 End: 06-22-2021 1 ampule, Inhalation, EVERY 4 HOURS WHILE AWAKE, First dose on 06/22/21 at 1200 Start: 06-03-2021 End: 06-21-2021 1 ampule, Inhalation, 4 TIME S DAILY PRN, Shortness of Breath, Starting on 06/21/21 at 1730 aspirin 81 mg delayed release oral tablet (20 sources) Platelet Aggregation Inhibitor, Nonsteroidal Anti-inflammatory Drug Start: 07-11-2021 Aspirin (Adult Lo w Dose Aspirin) 81 mg tablet,delayed release (DR/EC) Active 81 MG PO DAILY July 11, 2021 12:00am Start: 07-03-2021 End: 07-03-2021 End: 06-09-2025 take 1 tablet by mouth once daily Aspirin 81 MG Oral T ablet ; 1 daily (81 MG) End: 09-Jun-2025 Status: Inactive Aspirin 81 MG TA BS Quantity: 0 Refills: 0 Ordered: 22-Dec-2022 DO Active benzocaine 0.2 mg/mg oral ge l (2 sources) Standardized Chemical Allergen Start: 07-03-2021 Start: 06-20-2021 Mouth/Throat, 2 TIMES DAILY PRN, Pain, Starting on Carla 06/20/21 at 1045 benzonatate 200 mg oral capsule (3 sources) Non-narcotic Antitussive Start: 05-31-2021 End: 07-03-2021 take 1 capsule by mouth every eight hours as needed for cough benzonatate 200 MG capsule TAKE 1 CAPSULE BY MOUTH EVERY 8 HOURS NEEDED FOR COUGH 0 05/31/2021 Active busPIRone hydrochloride 5 mg oral tablet (2 sources) Start: 06-09-2025 busPIRone 5 mg tablet ; 1 (one) tablet BID for 0 days Quantity: 60 {Tablet} Refills: 1 Ordered: 09-Jun-2025 RAYNE Crews Start: 09-Jun-2025 cephalexin 500 mg oral capsule (20 sources) Cephalosporin Antibacterial Start: 09-04-2023 End: 09-14-2023 take 2 capsules by mouth every eight hours cephalexin (Keflex) 500 MG capsule Take 2 capsules (1,000 mg) by mouth in the morning and 2 capsules (1,000 mg) at noon and 2 capsules (1,000 mg) before bedtime. Do all this for 10 days. 60 capsule 0 09/04/2023 09/14/2023 Active Start: 07-08-2023 End: 07-24-2023 take 500 mg by mouth every six hours Cephalexin Discontinued 500 MG PO EVERY 6 HOURS 40 July 08, 2023 12:00am July 24, 2023 11:28pm Start: 2023 End: 02-17-2023 inject 1 capsule by subcutaneous injection four times daily Cephalexin 500 MG Oral Capsule ; 1 (one) Capsule QID for 4 days Quantity: 16 {Capsule} Refills: 0 Ordered: 13-Feb-2023 RAYNE Crews Start: 13-Feb-2023 End: 17-Feb-2023 Status: Inactive Comments: sub with tablets if cheaper Start: 05-17-2021 End: 05-24-2021 take 1 tablet by mouth three times daily Cephalexin 500 MG Oral Tablet ; 1 (one) Tablet TID for 7 days Quantity: 21 {Tablet} Refills: 0 Ordered: 17-May-2021 RAYNE Crews Start: 17-May-2021 End: 24-May-2021 Status: Inactive take 1 tablet by jose th every six hours cephALEXin 500 mg tablet ; 1 every six hours (500 mg) Status: Inactive End: 06-21-2021 Comment on above: sub with tablets if cheaper Cholecalciferol (7 sources) Vitamin D Start: 04-04-2024 take 1 tablet by mouth once daily cholecalciferol (vitamin D3) Active 1 TABLET PO DAILY April 04, 2024 12:00am Start: 07-04-2021 Start: 07-01-2021 take 2000 [IU] by mo uth once daily 2,000 Units, Oral, DAILY, First dose (after last modification) on Thu07/01/21 at 0900 Maintenance Dose. Start: 06-04-2021 End: 07-01-2021 2,000 Units, Per G Tube, DIGNA LY, First dose (after last modification) on Thu06/04/21 at 0900 Maintenance Dose. Start: 06-03-2021 End: 06-04-2021 take 2000 [IU] by mouth once daily 2,000 Units, Oral, DAILY, First dose on Thu06/03/21 at 1700 Maintenance Dose. End: 07-03-2021 cholestyramine resin 4000 mg powder for oral suspension (20 sources) Bile Acid Sequestrant Start: 02-06-2025 take 2-4 g by mouth once daily cholestyramine (with sugar) 4 gram oral powder ; 2-4 gram daily for 0 days Quantity: 378 {Gram} Refills: 1 Ordered: 06-Feb-2025 RAYNE Crews Start: 06-Feb-2025 Start: 08-05-2024 take 2-4 g by mouth once daily cholestyramine (with sugar) 4 gram oral powder ; 2-4 gram daily for 0 days Quantity: 378 {Gram} Refills: 1 Ordered: 05-Aug-2024 RAYNE Crews Start: 05-Aug-2024 Start: 07-24-2023 End: 08-18-2023 Cholestyramine (With Sugar) Discontinued EACH July 24, 2023 12:00am August 18, 2023 12:49am Start: 07-04-2021 Start: 06-04-2021 End: 07-03-2021 2 g (0.5 packet), Oral, CRISTAL Y, First dose (after last modification) on Thu06/25/21 at 0900 Start: 05-25-2018 take 1 scoop(s) by m outh once daily in the morning Cholestyramine (QUESTRAN) 4 GM/DOSE Powder Indications: Functional diarrhea Take 4 g by mouth daily. 1 scoop po qam 1 Can 05/25/2018 Active Cholestyramine 4 GM Oral Packet ; 1 daily (4 GM) Status: Inactive clotrimazole 10 mg/ml topical cream (20 sources) Azole Antifungal Start: 04-15-2024 clotrimazole 1 % topical cream ; 1 (one) application to affected area (between toes, bottom of foot, side of foot) BID for 0 days Quantity: 30 {Gram} Refills: 1 Ordered: 15-Apr-2024 BECCA Marie Start: 15-Apr-2024 collagenase 0.25 unt/mg topical ointment (2 sources) Collagen-specific Enzyme Start: 07-04-2021 End: 07-13-2021 Start: 06-21-2021 apply 1 dose topically once da no Topical, DAILY, First dose on Thu06/21/21 at 1045 Apply to back wound cyclobenzaprine hydrochloride 10 mg oral tablet (3 sources) Muscle Relaxant Start: 06-01-2020 End: 07-03-2021 take 1 tablet by mouth three times daily as needed for muscle spasms cyclobenzaprine (FLEXERIL) 10 MG tablet Take 1 tablet by mouth 3 times daily as needed for Muscle spasms 30 tablet 0 06/01/2020 06/11/2020 Active docusate sodium 100 mg oral capsule (20 sources) docusate sodium 100 mg capsule ; 1 two times daily (100 mg) docusate sodium 50 mg / sennosides, chcf 8.6 mg oral tablet (2 sources) Start: 07-03-2021 Start: 06-18-2021 take 1-2 tablets by mouth once daily 2 tablet, Oral, 2 TIMES DAILY, First dose (after last modification) on Thu06/18/21 at 0900 Hold for > 1-2 BMs per day ferrous sulfate 325 mg oral tablet (20 sources) Start: 07-11-2021 End: 08-01-2021 take 325 mg by mouth once daily Ferrous Sulfate Discontinued 325 MG PO DAILY July 11, 2021 12:00am August 01, 2021 4:11pm Start: 07-05-2021 take 1 tablet by jose th once daily Ferrous Sulfate 325 (65 Fe) MG Oral Tablet ; 1 (one) Tablet daily for 0 days Quantity: 90 {Tablet} Refills: 1 Ordered: 02-Nov-2023 BECCA Lyons Start: 02-Nov-2023 Start: 07-05-2021 Start: 06-29-2021 End: 07-03-2021 take 325 mg by mouth every other day 325 mg, Oral, EVERY OTHER DAY, First dose on Thu06/29/21 at 1100 take 1 tablet by jose th once daily Ferrous Sulfate 325 (65 Fe) MG Oral Tablet ; 1 daily (325 (65 Fe) MG) Status: Inactive 60 actuat formoterol fumarat e 0.005 mg/actuat / mometasone furoate 0.2 mg/actuat metered dose inhaler (2 sources) Corticosteroid, beta2-Adrenergic Agonist Start: 07-03-2021 Start: 06-22-2021 take 2 puff(s) by in halation twice daily 2 puff, Inhalation, 2 TIMES DAILY, First dose on Thu06/22/21 at 0830 Rinse mouth out with water (without swallowing) after every dose. glucagon (rdna) 1 mg injection (1 source) Antihypoglycemic Agent Start: 06-04-2021 take 1 mL intravenously every hour 1 mg, Intramuscular, PRN, Low blood sugar, Blood glucose less than 70 mg/dL and patient NOT ALERT or NPO and does not have IV access., Starting on Thu06/04/21 at 1133 After administration, attempt intravenous access and start D5W at 100 mL/hr. Repeat blood glucose in 15 minutes x2 and notify provider. 150 ml glucose 50 mg/ml injection (3 sources) Start: 06-04-2021 15 g, Oral, PRN, Low blood sugar, Starting on Thu06/04/21 at 1133 If blood glucose less than 50 mg/dL and patient ALERT and TOLERATING PO, give 2 tubes glucose gel. If blood glucose less than 70 mg/dL and patient ALERT and TOLERATING PO, give 1 tube glucose gel. Repeat blood glucose in 15 minutes. If blood glucose is less than 70 mg/dL, repeat treatment and recheck blood glucose in 15 minutes x2 and notify provider. Start: 06-04-2021 12.5 g, Intrav enous, PRN, Low blood sugar, Blood glucose less than 70 mg/dL and patient NOT ALERT or NPO., Starting on Thu06/04/21 at 1133 If patient does not respond within 5 minutes, repeat dose x1. Start D5W at 100 mL/hour until ordering provider can be reached. Repeat blood glucose in 15 minutes. If blood glucose is less than 70 mg/dL, repeat treatment and recheck blood glucose in 15 minutes x2. If using Glucostabilizer, dose as instructed per system. Start: 06-04-2021 100 mL/hr, Int ravenous, at 100 mL/hr, PRN, Low blood sugar, Starting on Thu06/04/21 at 1133 Start infusion following administration of dextrose 50% or glucagon. 3 ml heparin sodium, porcine 100 unt/ml prefilled syringe (3 sources) Unfractionated Heparin, Anti-coagulant Start: 06-27-2021 250 Units, Intracatheter, EV JOVANNA 12 HOURS, First dose on Thu06/27/21 at 1200 Each lumen. Do NOT administer to lumens with continuous fluids currently infusing. Line Care. Use 10 mL or larger syringe. Start: 06-27-2021 250 Units, Int racatheter, PRN, Line Care, after blood draws and after infusion, Starting on Carla 06/27/21 at 1132 Do NOT administer to lumens with continuous fluids currently infusing. Line Care. Use 10 mL or larger syringe. Start: 06-26-2021 250 Units, Int ravenous, EVERY 12 HOURS SCHEDULED (2 times per day), First dose on Thu06/26/21 at 1100 Flush each lumen of PICC not connected to a continuous infusion. hydrocortisone 10 mg/ml topi olesya cream (2 sources) Corticosteroid Start: 07-03-2021 Start: 06-03-2021 Topical, 2 RADHA ES DAILY PRN, lower extremity itching, Starting on 06/03/21 at 1811 Apply to lower extremities. Substituted for Hydrocortisone topical. hydrOXYzine pamoate 25 mg oral capsule (2 sources) Antihistamine Start: 06-24-2021 End: 07-17-2021 sodium hypochlorite 1.25 mg/ml topical solution (1 source) Start: 06-21-2021 Irrigation, DA NO, First dose on Thu06/21/21 at 1045 L.acidophil,salivari-B ifido bifidum-Strep thermoph 175 mg capsule (20 sources) L.acidophil,sali vari -Bifido bifidum-Strep thermoph 175 mg capsule ; 1 two times daily (175 mg) lisinopril 10 mg oral tablet (20 sources) Angiotensin Converting Enzyme Inhibitor Start: 04-28-2025 lisinopriL 10 mg tablet ; 1 (one) Tablet daily for 0 days Quantity: 60 {Tablet} Refills: 0 Ordered: 28-Apr-2025 RAYNE Coley Start: 28-Apr-2025 Start: 10-24-2024 lisinopriL 10 mg tablet ; 1 (one) Tablet daily for 0 days Quantity: 90 {Tablet} Refills: 1 Ordered: 24-Oct-2024 RAYNE Crews Start: 24-Oct-2024 Start: 04-01-2024 lisinopriL 10 mg tablet ; 1 (one) Tablet daily for 0 days Quantity: 90 {Tablet} Refills: 1 Ordered: 01-Apr-2024 RAYNE Crews Start: 01-Apr-2024 Start: 03-21-2024 lisinopriL 10 mg tablet ; 1 (one) Tablet daily for 0 days Quantity: 30 {Tablet} Refills: 0 Ordered: 21-Mar-2024 RAYNE Crews Start: 21-Mar-2024 Start: 02-08-2024 lisinopriL 10 mg tablet ; 1 (one) Tablet daily for 0 days Quantity: 30 {Tablet} Refills: 0 Ordered: 08-Feb-2024 RAYNE Crews Start: 08-Feb-2024 Start: 12-28-2023 lisinopriL 10 mg tablet ; 1 (one) Tablet daily for 0 days Quantity: 30 {Tablet} Refills: 0 Ordered: 28-Dec-2023 RAYNE Crews Start: 28-Dec-2023 Start: 07-24-2023 take 1 tablet by jose once daily lisinopril 10 MG tablet Take 10 mg by mouth daily. 0 08/11/2023 Active Start: 07-24-2023 take 20 mg by mouth once daily Lisinopril Active 20 MG PO DAILY July 24, 2023 12:00am Lisinopril 10 MG Oral Tablet Quantity: 0 Refills: 0 Ordered: 22-Dec-2022 DO Active loperamide hydrochloride 2 mg oral capsule (20 sources) Opioid Agonist loperamide 2 mg capsule ; q4hrs prn fro diarrhea (2 mg) magnesium hydroxide 80 mg/ml oral suspension (1 source) Start: 06-03-20 take 30 mL by mouth once daily as needed for constipation 30 mL, Oral, DAILY PRN, Constipation, Starting on Thu06/03/21 at 1623 First line therapy for constipation. melatonin 3 mg oral tablet (3 sources) Start: 06-19-20 End: 06-20-20 miconazole nitrate 0.02 mg/mg topical powder (2 sources) Azole Antifungal Start: 07-03-20 Start: 06-17-2021 apply 1 dose topically twice d aily Topical, 2 TIMES DAILY, First dose on Thu06/17/21 at 0900 Apply to skin folds. Multiple Vitamin (multivitamin) tablet (1 source) take 1 tablet by mouth once daily Multiple Vitamin (multivitamin) tablet Take 1 tablet by mouth daily. 0 Active cuidgrkhseyr-To-kysw-mi nerals Tab (1 source) take 1 tablet by mouth once daily giyewcnwnrfv-Eo-tqxu-m inerals Tab Take 1 tablet by mouth daily . Active nystatin 100 unt/mg topical powder (20 sources) Polyene Antifungal Start: 07-31-20 Nystatin (Nyamyc) 100,000 unit/gram Powder Active 1 APPLIC TOPICAL TWICE A DAY July 31, 2023 12:00am Start: 08-01-2021 End: 07-24-2023 Nystatin (Nyamyc) 100,000 un it/gram powder Discontinued 1 APPLIC TOPICAL BID@0600,2200 August 06, 2021 12:56pm July 24, 2023 11:29pm Nystatin [id number] UNIT/GM External Ointment ; bid (246437 UNIT/GM) Status: Inactive pantoprazole 20 mg delayed release oral tablet (20 sources) Proton Pump Inhibitor Start: 05-22-2025 Protonix 20 mg tablet,delayed release ; 1 (one) tablet daily for 0 days Quantity: 30 {Tablet} Refills: 0 Ordered: 22-May-2025 RAYNE Crews Start: 22-May-2025 Start: 12-21-2024 Protonix 20 mg tablet,delayed release ; 1 (one) tablet daily for 0 days Quantity: 30 {Tablet} Refills: 5 Ordered: 21-Dec-2024 BECCA Marie Start: 21-Dec-2024 Start: 08-01-2021 End: 07-24-2023 take 40 mg by mouth once daily Pantoprazole Discontinu ed 40 MG PO DAILY@0600 August 01, 2021 12:00am July 24, 2023 11:29pm Start: 07-04-2021 Start: 06-23-2021 take 40 mg by mouth once daily before breakfast 40 mg, Oral, DAILY BEFORE BREAKFAST, First dose (after last modification) on 06/23/21 at 0700 Do not crush or break. Start: 06-21-2021 End: 06-22-2021 take 40 mg by mouth twice daily before mealtime 40 mg, Oral, 2 TIMES DAILY BEFORE MEALS, First dose (after last modification) on Thu06/21/21 at 1600 Do not crush or break. Start: 06-21-2021 End: 06-21-2021 take 40 mg by mouth once daily before breakfast 40 mg, Oral, DAILY BEFORE BREAKFAST, First dose on Thu06/21/21 at 0700 Do not crush or break. Start: 06-02-2021 End: 06-03-2021 pantoprazole (PROTONIX) tabl et DR 40 mg petrolatum 0.41 mg/mg topica l ointment (2 sources) Start: 07-03-2021 Start: 06-21-2021 apply 1 dose topically twice d aily Topical, 2 TIMES DAILY, First dose on Thu06/21/21 at 1045 Apply to bilateral LE and feet phenol 14 mg/ml mouthwash (2 sources) Start: 07-03-2021 Start: 06-25-2021 take 1 spray(s) by [facility] every two hours as needed 1 spray, Mouth/Throat, EVERY 2 HOURS PRN, Sore Throat, Starting on Thu06/25/21 at 1133 polyethylene glycol 3350 170 00 mg powder for oral solution (2 sources) Osmotic Laxative Start: 07-03-2021 End: 08-02-2021 Start: 06-18-2021 17 g, Oral, 2 TIMES DAILY, First dose on Thu06/18/21 at 0900 Hold for > 1-2 BMs per day sodium chloride 30 mg/ml inh alation solution (15 sources) Start: 07-03-2021 Start: 06-27-2021 10 mL, Intraca theter, EVERY 12 HOURS, First dose on Thu06/27/21 at 1200 Administer to each lumen, regardless of whether or not fluids are infusing. Line Care. Use 10 mL or larger syringe. Start: 06-27-2021 10 mL, Intraca theter, PRN, Line Care, before blood draws, before and after infusion or medication administration, Starting on Thu06/27/21 at 1132 Use 10 mL or larger syringe. Start: 06-26-2021 1 spray, Each Nostril, PRN, Congestion, for dry nose, Starting on Thu06/26/21 at 2037 Start: 06-26-2021 10 mL, Intrave nous, PRN, Line Care, Starting on Thu06/26/21 at 1032 Flush each lumen of PICC. Start: 06-25-2021 4 mL, Nebuliza tion, 3 TIMES DAILY, First dose on Thu06/25/21 at 1400 Start: 06-25-2021 Start: 06-04-2021 End: 06-18-2021 30 mL (0.151 mL/kg), Intrave nous, at 180 mL/hr, Administer over 10 Minutes, PRN, for Remdesivir line flush, Starting on Thu06/04/21 at 0955 Start: 06-03-2021 End: 06-27-2021 take 1 dose intravenously twice daily 5-40 mL, Intravenous, EVERY 12 HOURS SCHEDULED (2 times per day), First dose on Thu06/03/21 at 2100 For Line Patency: Peripheral IV = 5 mL; Midline or Central Line = 10 mL/lumen. If following IV push medication, administer flush at same rate as the IV push. Flush volume is determined by type of infusion therapy being given. For non-viscous solutions use: Peripheral IV = 5 mL Midline or Central Line = 10 mL/lumen For viscous solutions (i.e. blood components, parenteral nutrition, contrast media, or after obtaining blood sample) use: Peripheral IV = 10 mL Midline or Central Line = 20 mL/lumen Start: 06-03-2021 End: 06-27-2021 take 5-40 mL intravenously every eight hours 5-40 mL, Intracatheter, EVERY 8 HOURS, First dose on Thu06/03/21 at 1730 For Line Patency: Peripheral IV = 5 mL; Midline or Central Line = 10 mL/lumen. If following IV push medication, administer flush at same rate as the IV push. Flush volume is determined by type of infusion therapy being given. For non-viscous solutions use: Peripheral IV = 5 mL Midline or Central Line = 10 mL/lumen For viscous solutions (i.e. blood components, parenteral nutrition, contrast media, or after obtaining blood sample) use: Peripheral IV = 10 mL Midline or Central Line = 20 mL/lumen Start: 06-03-2021 take 25 mL intraveno usly every hour as needed 25 mL, Intravenous, at 100 mL/hr, PRN, If patient receiving piggyback infusions without ordered maintenance IV fluids or with frequent/long duration piggyback infusions, Starting on Thu06/03/21 at 1623 Administer at the same rate as the piggyback being infused. Start: 06-02-2021 End: 06-02-2021 sodium chloride 0.9% IV solu tion 75 mL Start: 06-02-2021 End: 06-03-2021 sodium chloride 0.9% IV solu tion sodium chloride flush 0.9 % injection 3 mL (1 source) Start: 06-01-2020 sodium chlorid e flush 0.9 % injection 3 mL triamcinolone acetonide 1 mg/ml topical cream (20 sources) Corticosteroid Start: 05-12-2024 triamcinolone acetonide 0.1 % topical cream ; 1 (one) Application to affected area TID for 0 days Quantity: 30 {Gram} Refills: 0 Ordered: 12-May-2024 RAYNE Crews Start: 12-May-2024 Start: 03-14-2021 End: 08-12-2021 Triamcinolone Acetonide 0.1 % External Cream ; 1 (one) Application to affected areas TID prn for 0 days Quantity: 30 {Gram} Refills: 0 Ordered: 12-Aug-2021 RAYNE Crews Start: 14-Mar-2021 End: 12-Aug-2021 Status: Inactive valACYclovir 1000 mg oral tablet (20 sources) Herpesvirus Nucleoside Analog DNA Polymerase Inhibitor, Herpes Simplex Virus Nucleoside Analog DNA Polymerase Inhibitor, Herpes Zoster Virus Nucleoside Analog DNA Polymerase Inhibitor Start: 04-07-2024 take 2000 mg by mouth twice daily Valacyclovir Active 2000 MG PO TWICE A DAY April 07, 2024 12:00am Start: 05-06-2023 End: 07-16-2023 Valtrex 1 gram tablet ; 2 (t wo) Tablet BID x 1 day only at onset of cold sore for 0 days Quantity: 20 {Tablet} Refills: 0 Ordered: 16-Jul-2023 BECCA Palma Nora Start: 06-May-2023 End: 16-Jul-2023 Status: Inactive 24 hr venlafaxine 75 mg extended release oral capsule (20 sources) Serotonin and Norepinephrine Reuptake Inhibitor Start: 01-23-2025 venlafaxine ER 75 mg capsule,extended release 24 hr ; 3 (three) Capsule once daily for 90 days Quantity: 270 {Capsule} Refills: 1 Ordered: 23-Jan-2025 RAYNE Crews Start: 23-Jan-2025 Start: 08-06-2023 venlafaxine XR (Effexor XR) 75 MG 24 hr capsule Start: 09-03-2021 venlafaxine ER 75 mg capsule,extended release 24 hr ; 3 (three) Capsule once daily for 90 days Quantity: 270 {Capsule} Refills: 1 Ordered: 01-Apr-2024 RAYNE Crews Start: 01-Apr-2024 Start: 08-01-2021 End: 07-24-2023 Venlafaxine Discontinued 150 MG PO 0800 August 01, 2021 12:00am July 24, 2023 11:27pm take 1 tablet by jose th every twenty-four hours Venlafaxine HCl ER 150 MG Oral Tablet Extended Release 24 Hour ; 1 daily (150 MG) Status: Inactive take 3 capsules by m outh once daily venlafaxine (EFFEXOR-XR) 75 MG 24 hr capsule Take 3 (three) capsules (225 mg total) by mouth daily . Active Venlafaxine HCl - 75 MG Oral Tablet Quantity: 0 Refills: 0 Ordered: 22-Dec-2022 DO Active vitamin b12 0.05 mg oral tablet (1 source) Vitamin B12 take 1 tablet by mouth once daily cyanocobalamin (vitamin B-12) 50 mcg tablet Take 1 (one) tablet (50 mcg total) by mouth daily . Active Wegovy 0.25 mg/0.5 mL subcutaneous pen injector (17 sources) Start: 5 inject 0.5 mg by subcutaneous injection every week Wegovy 0.25 mg/0.5 mL subcutaneous pen injector ; 0.5 mL once a week x 4 weeks and then increase to 0.5mg once a week for 0 days Quantity: 2 {Milliliter} Refills: 0 Ordered: 09-Jun-2025 RAYNE Crews Start: 09-Jun-2025 Comments: No personal or family history of MEN 2 or thyroid cancer. Start: 06-15-2024 Wegovy 0.25 mg /0.5 mL subcutaneous pen injector ; 0.5 mL once a week x 4 weeks for 0 days Quantity: 2 {Milliliter} Refills: 0 Ordered: 15-Jun-2024 RAYNE Crews Start: 15-Jun-2024 Comments: No personal or family history of MEN 2 or thyroid cancer. Comment on above: No personal or famil y history of MEN 2 or thyroid cancer. Completed/Discontinued Medications Medication Drug Class(es) Dates Sig (Normalized) Sig (Original) acetylcysteine 600 mg oral capsule (1 source) Antidote, Mucolytic, Antidote for Acetaminophen Overdose Start: 06-02-2021 End: 06-03-2021 Acetylcysteine (NAC) capsule 1,200 mg amoxicillin 500 mg oral capsule (4 sources) Penicillin-class Antibacterial Start: 08-21-2023 End: 04-04-2024 take 500 mg by mouth once daily Amoxicillin Discontinued 500 MG PO DAILY August 21, 2023 12:00am April 04, 2024 9:39pm Patient to start after completing cefdinir ascorbic acid 500 mg oral tablet (20 sources) Vitamin C Start: 08-01-2021 End: 04-04-2024 take 500 mg by mouth at mealtime Ascorbic Acid (Vitamin C) Discontinued 500 MG PO 1200 0 August 01, 2021 12:00am April 04, 2024 9:41pm take this medication with the ferrous sulfate with food Start: 06-03-2021 End: 06-03-2021 ascorbic acid (VITAMIN C) ta blet 500 mg take 1 capsule by mo ut once daily Ascorbic Acid 500 MG Oral Capsule ; 1 daily (500 MG) Status: Inactive take 1 tablet by mouth once cristal y ascorbic acid, vitamin C, (VITAMIN C) 100 MG tablet Take 1 (one) tablet (100 mg total) by mouth daily . Active End: 07-03-2021 b-complex/zinc (STRESS FORMULA with Zinc) tablet 1 tablet (1 source) Start: 06-03-2021 End: 06-03-2021 b-complex/zinc (STRESS FORMULA with Zinc) tablet 1 tablet bacillus coagulans [id number] unt / lactobacillus acidophilus [id number] unt oral tablet (1 source) End: 07-03-2021 bisacodyl 10 mg rectal suppository (3 sources) Stimulant Laxative Start: 06-20-2021 End: 08-02-2021 take 10 mg rectal route once daily 10 mg, Rectal, DAILY, First dose on Thu06/24/21 at 1145 budesonide 0.25 mg/ml inhalation suspension (1 source) Corticosteroid Start: 06-02-2021 End: 06-03-2021 budesonide (PULMICORT) nebulizer suspension 0.5 mg calcium chloride 0.0014 meq/ml / potassium chloride 0.004 meq/ml / sodium chloride 0.103 meq/ml / sodium lactate 0.028 meq/ml injectable solution (3 sources) Start: 06-25-2021 End: 06-25-2021 1,000 mL, Intravenous, at 500 mL/hr, Administer over 2 Hours, ONCE, On Thu06/25/21 at 1615, For 1 dose cefdinir 300 mg oral capsule (20 sources) Cephalosporin Antibacterial Start: 04-15-2024 End: 04-22-2024 cefdinir 300 mg capsule ; 1 (one) Capsule BID for 7 days Quantity: 14 {Capsule} Refills: 0 Ordered: 15-Apr-2024 RAYNE Crews Start: 15-Apr-2024 End: 22-Apr-2024 Status: Inactive Start: 04-08-2024 take 300 mg by mouth every twelve hours Cefdinir Active 300 MG PO Q12H April 08, 2024 12:00am Start 04/09 Start: 08-21-2023 End: 04-04-2024 take 300 mg by mouth every twelve hours Cefdinir Discontinued 300 MG PO Q12H August 21, 2023 12:00am April 04, 2024 9:41pm Start: 07-31-2023 End: 08-18-2023 take 300 mg by mouth every twelve hours Cefdinir Discontinued 300 MG PO Q12H 18 09July 31, 2023 12:00am August 18, 2023 12:49am Start: 08-12-2021 End: 08-19-2021 Cefdinir 300 MG Oral Capsule ; 1 (one) Capsule BID for 7 days Quantity: 14 {Capsule} Refills: 0 Ordered: 12-Aug-2021 RAYNE Crews Start: 12-Aug-2021 End: 19-Aug-2021 Status: Inactive Comments: Please only give a 7 day supply if patient hasn't picked up med yet! Comment on above: Please only give a 7 day supply if patient hasn't picked up med yet! chlorhexidine gluconate 1.2 mg/ml mouthwash (1 source) Start: 06-04-2021 End: 06-18-2021 take 15 mL by mouth twice daily 15 mL, Mouth/Throat, 2 TIMES DAILY, First dose on Thu06/04/21 at 0245 1 ml dexamethasone phosphate 4 mg/ml injection (8 sources) Corticosteroid Start: 06-19-2021 End: 06-19-2021 4 mg, Intravenous, ONCE, On Thu06/19/21 at 0800, For 1 dose Start: 06-18-2021 End: 06-18-2021 6 mg, Intravenous, DAILY, Fi rst dose (after last modification) on Thu06/18/21 at 0900 Start: 06-16-2021 End: 06-17-2021 4 mg, Intravenous, EVERY 6 H OURS, First dose on Thu06/16/21 at 2300 Start: 06-14-2021 End: 06-16-2021 10 mg, Intravenous, EVERY 8 HOURS, First dose (after last modification) on Thu06/14/21 at 1030 Start: 06-04-2021 End: 06-14-2021 6 mg, Intravenous, DAILY, Fi rst dose on Thu06/04/21 at 0900 Start: 05-31-2021 End: 07-03-2021 take 1 tablet by mouth once daily dexAMETHasone 6 MG tablet TAKE 1 TABLET BY MOUTH ONCE DAILY FOR 6 DAYS 0 05/31/2021 Active 100 ml dexmedetomidine 0.004 mg/ml injection (2 sources) Central alpha-2 Adrenergic Agonist Start: 06-13-2021 End: 06-20-2021 0.2-1.4 mcg/kg/hr 189 kg (9.45-66.15 mL/hr, rounded to 9.5-66.2 mL/hr), Intravenous, at 9.5-66.2 mL/hr, CONTINUOUS, Starting on Thu06/17/21 at 0900 For sedation, titrate to RASS +1 to -1 Dose Range: 0.2 to 1.4 mcg/kg/hr Initial dose 0.2 mcg/kg/hr Max dose: 1.4 mcg/kg/hr Contact physician if max dose does not achieve desired response If RASS 1 or more points below goal, decrease dose by 0.1 mcg/kg/hr no faster than every 30 min If RASS at goal, continue same rate If RASS 1 or more points above goal, increase dose by 0.1 mcg/kg/hr no faster than every 30 min doxycycline hyclate 100 mg oral capsule (20 sources) Tetracycline-clas s Drug Start: 07-23-2023 End: 08-18-2023 doxycycline hyclate 100 mg capsule ; 1 (one) capsule BID for 7 days Quantity: 14 {Capsule} Refills: 0 Ordered: 23-Jul-2023 RAYNE Crews Start: 23-Jul-2023 End: 30-Jul-2023 Status: Inactive 0.4 ml enoxaparin sodium 100 mg/ml prefilled syringe (11 sources) Low Molecular Weight Heparin Start: 07-11-2021 End: 08-01-2021 Enoxaparin (Lovenox) 40 mg/0.4 mL syringe Discontinued 40 MG SC Q12H July 11, 2021 12:00am August 01, 2021 4:11pm Start: 06-03-2021 End: 06-03-2021 esomeprazole 20 mg delayed release oral tablet (20 sources) Proton Pump Inhibitor NexIUM 24H R 20 MG Oral Tablet Delayed Release ; 1 as needed (20 MG) Status: Inactive Comments: Medication taken as needed. Comment on above: Medication taken as needed. famotidine 20 mg oral tablet (1 source) Histamine-2 Receptor Antagonist Start: 06-20-20 End: 06-21-20 take 20 mg by mouth twice daily 20 mg, Oral, 2 TIMES DAILY, First dose on Thu06/20/21 at 0900 100 ml fluconazole 2 mg/ml injection (1 source) Azole Antifungal Start: 06-09-20 End: 06-13-20 200 mg, Intravenous, EVERY 24 HOURS, First dose on Thu06/09/21 at 1400, Until Discontinued fluticasone propionate 0.05 mg/actuat metered dose nasal spray (20 sources) Corticosteroid Start: 07-11-20 End: 07-24-20 take 1 spray(s) nasal route twice daily Fluticasone Propionate (Allergy Relief (Fluticasone)) 50 mcg/actuation spray,suspension Discontinued 2 SPRAY INTRANASAL TWICE A DAY August 01, 2021 4:19pm July 24, 2023 11:29pm administer into each nostril Start: 07-03-2021 Start: 06-27-2021 take 2 spray(s) nasa l route twice daily 2 spray, Each Nostril, 2 TIMES DAILY, First dose (after last modification) on Thu06/27/21 at 1045 furosemide 40 mg oral tablet (20 sources) Loop Diuretic Start: 03-26-2022 End: 09-10-2022 take 1 tablet by mouth once daily Lasix 40 MG Oral Tablet ; 1 (one) Tablet daily for 0 days Quantity: 30 {Tablet} Refills: 0 Ordered: 10-Sep-2022 RAYNE Crews Start: 26-Mar-2022 End: 10-Sep-2022 Status: Inactive Start: 06-25-2021 End: 06-25-2021 40 mg, Intravenous, ONCE, On Thu06/25/21 at 2215, For 1 dose Start: 06-16-2021 End: 06-23-2021 40 mg, Intravenous, 2 TIMES DAILY, First dose (after last modification) on Thu06/16/21 at 1800 Start: 06-14-2021 End: 06-14-2021 40 mg, Intravenous, ONCE, On Thu06/14/21 at 1015, For 1 dose Start: 06-10-2021 End: 06-16-2021 40 mg, Intravenous, DAILY, F irst dose (after last modification) on Thu06/10/21 at 0900 Start: 06-07-2021 End: 06-09-2021 40 mg, Intravenous, 2 TIMES DAILY, First dose on Thu06/07/21 at 1130 Start: 06-07-2021 End: 06-07-2021 40 mg, Intravenous, ONCE, On Thu06/07/21 at 0430, For 1 dose Start: 06-07-2021 End: 06-07-2021 Starting on Thu06/07/21 at 04 17, For 1 dose Emilia Stephen: julit override Start: 06-06-2021 End: 06-06-2021 40 mg, Intravenous, ONCE, On [place]rala 06/06/21 at 1145, For 1 dose Start: 05-17-2021 End: 07-03-2021 take 1 tablet by mouth once daily furOSEmide 20 MG tablet Take 20 mg by mouth daily. 0 05/17/2021 Active gabapentin 300 mg oral capsule (20 sources) Anti-epileptic Agent Start: 05-20-2021 End: 08-12-2021 Gabapentin 300 MG Oral Capsule ; 1 (one) Capsule daily on day 1, 1 capsule BID on day 2 and 1 capsule TID on day 3 and after for 0 days Quantity: 90 {Capsule} Refills: 0 Ordered: 12-Aug-2021 BECCA Stevens Start: 20-May-2021 End: 12-Aug-2021 Status: Inactive Start: 05-20-2021 End: 06-26-2021 take 300 mg by mouth three times daily 300 mg, Oral, 3 TIMES DAILY, First dose (after last modification) on 06/22/21 at 0900 12 hr guaiFENesin 600 mg extended release oral tablet (20 sources) Start: 08-12-2021 End: 08-29-2021 take 1 tablet by mouth twice daily Mucinex 600 MG Oral Tablet Extended Release 12 Hour ; 1 (one) Tablet BID for 30 days Quantity: 60 {Tablet} Refills: 0 Ordered: 29-Aug-2021 RAYNE Crews Start: 12-Aug-2021 End: 29-Aug-2021 Status: Inactive Start: 06-25-2021 insulin lispro 100 unt/ml injectable solution (6 sources) Insulin Analog Start: 06-20-2021 End: 06-21-2021 inject 3 [IU] by subcutaneous injection three times daily at mealtime 3 Units, Subcutaneous, 3 TIMES DAILY WITH MEALS, First dose (after last modification) on Thu06/20/21 at 1200 Start: 06-20-2021 End: 06-22-2021 0-12 Units, Subcutaneous, 3 TIMES DAILY WITH MEALS, First dose on Thu06/20/21 at 0830 Medium Dose Corrective Algorithm Glucose: Dose: If <139 No Insulin 140-199 2 Units 200-249 4 Units 250-299 6 Units 300-349 8 Units 350-400 10 Units Above 400 12 Units Start: 06-18-2021 End: 06-20-2021 0-12 Units, Subcutaneous, EV JOVANNA 6 HOURS, First dose (after last modification) on Thu06/18/21 at 2000 Medium Dose Corrective Algorithm Glucose: Dose: If <139 No Insulin 140-199 2 Units 200-249 4 Units 250-299 6 Units 300-349 8 Units 350-400 10 Units Above 400 12 Units Start: 06-17-2021 End: 06-18-2021 0-12 Units, Subcutaneous, 3 TIMES DAILY WITH MEALS, First dose on Thu06/17/21 at 0800 Medium Dose Corrective Algorithm Glucose: Dose: If <139 No Insulin 140-199 2 Units 200-249 4 Units 250-299 6 Units 300-349 8 Units 350-400 10 Units Above 400 12 Units Start: 06-05-2021 End: 06-20-2021 i n j e c t 3 [ I U ] b y s u b c u t a n e o u s i n j e c t i o n e v e r y s i x h o u r s 3 Units, Subcutaneous, EVERY 6 HOURS, Fi rst dose on Thu06/05/21 at 1330 Start: 06-04-2021 End: 06-17-2021 0-6 Units, Subcutaneous, MEDINA RY 6 HOURS, First dose on Thu06/04/21 at 1200 Corrective Low Dose Algorithm Glucose: Dose: 70- 139 &nbs p; No Insulin 140-199 1 Unit 200-249 2 Units 250-299 3 Units 300-349 4 Units 350-399 5 Units Over 399 6 Units iohexol (OMNIPAQUE) 350 MG/ML injection 75 mL (1 source) Start: 06-02-2021 End: 06-02-2021 iohexol (OMNIPAQUE) 350 MG/ML injection 75 mL 1 ml ketorolac tromethamine 30 mg/ml cartridge (1 source) Nonsteroidal Anti-inflammatory Drug, Cyclooxygenase Inhibitor Start: 06-01-2020 End: 06-01-2020 ketorolac (TORADOL) injection 30 mg labetalol hydrochloride 5 mg/ml injectable solution (1 source) beta-Adrenergic Gold Start: 06-02-2021 End: 06-03-2021 take 20 mg intravenously every four hours as needed labetalol (NORMODYNE) injection 20 mg lactobacillus acidophilus 10 mg oral tablet (6 sources) Start: 07-24-2023 End: 04-04-2024 take 1 capsule by mouth once daily Lactobacillus Acidophilus (Acidophilus) capsule Discontinued 10 MG PO DAILY July 24, 2023 12:00am April 04, 2024 9:40pm 150 ml levoFLOXacin 5 mg/ml injection (1 source) Quinolone Antimicrobial Start: 06-02-2021 End: 06-03-2021 take 750 mg intravenously every twenty-four hours levoFLOXacin (LEVAQUIN) 750 mg in dextrose 5% premix IVPB 10 ml lidocaine hydrochloride 10 mg/ml injection (1 source) Antiarrhythmic, Amide Local Anesthetic Start: 06-26-2021 End: 06-27-2021 5 mL, Intradermal, ONCE, On Thu06/26/21 at 1100, For 1 dose 300 ml linezolid 2 mg/ml injection (2 sources) Oxazolidinone Antibacterial Start: 06-16-2021 End: 06-19-2021 600 mg, Intravenous, at 300 mL/hr, Administer over 60 Minutes, EVERY 12 HOURS, First dose on Thu06/16/21 at 0845 Avoid aged, smoked, or fermented foods including cheese, sour cream, soy sauce, sauerkraut, yogurt, sausage, pepperoni, salami, and dried fruit. Limit caffeine. Start: 06-03-2021 End: 06-04-2021 600 mg, Intravenous, at 300 mL/hr, Administer over 60 Minutes, EVERY 12 HOURS, First dose on Thu06/03/21 at 1715 Avoid aged, smoked, or fermented foods including cheese, sour cream, soy sauce, sauerkraut, yogurt, sausage, pepperoni, salami, and dried fruit. Limit caffeine. magnesium oxide 400 mg oral capsule (9 sources) Start: 08-01-2021 End: 08-18-2023 take 400 mg by mouth once daily Magnesium Oxide Discontinued 400 MG PO DAILY August 01, 2021 12:00am August 18, 2023 12:50am Start: 06-23-2021 End: 06-28-2021 take 400 mg by mouth twice daily 400 mg, Oral, 2 TIMES DAILY, First dose on 06/23/21 at 0900 50 ml magnesium sulfate 40 mg/ml injection (1 source) Start: 06-03-2021 End: 06-03-2021 magnesium sulfate 2 g/50 mL in sterile water premix IVPB 2 g 50 mL (total volume) methylPREDNISolone 125 mg injection (2 sources) Corticosteroid Start: 06-02-2021 End: 06-03-2021 methylPREDNISolone sodium succinate (SOLU-MEDROL) injection 125 mg Multi Vitamin Daily TABS (2 sources) Multi Vitamin Da no TABS Quantity: 0 Refills: 0 Ordered: 22-Dec-2022 DO Active multivitamin tablet 1 tablet (1 source) Start: 06-03-2021 End: 06-03-2021 multivitamin tablet 1 tablet nitrofurantoin, macrocrystals 25 mg / nitrofurantoin, monohydrate 75 mg oral capsule (20 sources) Nitrofuran Antibacterial Start: 09-10-2022 End: 09-15-2022 take 1 capsule by mouth twice daily Macrobid 100 MG Oral Capsule ; 1 (one) Capsule BID for 5 days Quantity: 10 {Capsule} Refills: 0 Ordered: 10-Sep-2022 RAYNE Crews Start: 10-Sep-2022 End: 15-Sep-2022 Status: Inactive omeprazole 40 mg delayed release oral capsule (20 sources) Proton Pump Inhibitor Start: 08-29-2024 End: 12-21-2024 omeprazole 40 mg capsule,delayed release ; 1 (one) Capsule once daily for 0 days Quantity: 90 {Capsule} Refills: 1 Ordered: 21-Dec-2024 BECCA Marie Start: 29-Aug-2024 End: 21-Dec-2024 Status: Discontinued Start: 04-01-2024 omeprazole 40 mg capsule,delayed release ; 1 (one) Capsule once daily for 0 days Quantity: 90 {Capsule} Refills: 1 Ordered: 01-Apr-2024 RAYNE Crews Start: 01-Apr-2024 Start: 03-21-2024 omeprazole 40 mg capsule,delayed release ; 1 (one) Capsule once daily for 0 days Quantity: 30 {Capsule} Refills: 0 Ordered: 21-Mar-2024 RAYNE Crews Start: 21-Mar-2024 Start: 02-08-2024 omeprazole 40 mg capsule,delayed release ; 1 (one) Capsule once daily for 0 days Quantity: 30 {Capsule} Refills: 0 Ordered: 08-Feb-2024 RAYNE Crews Start: 08-Feb-2024 Start: 12-28-2023 omeprazole 40 mg capsule,delayed release ; 1 (one) Capsule once daily for 0 days Quantity: 30 {Capsule} Refills: 0 Ordered: 28-Dec-2023 RAYNE Crews Start: 28-Dec-2023 Start: 06-17-2023 take 1 capsule by mo uth once daily omeprazole (PRILOSEC) 40 MG capsule Take 1 (one) capsule (40 mg total) by mouth daily . 06/17/2023 Active Omeprazole 40 MG Oral Capsule Delayed Release Quantity: 0 Refills: 0 Ordered: 22-Dec-2022 DO Active take 1 capsule by mo uth once daily omeprazole (PRILOSEC) [address] take 10 mg by mouth daily. 0 Active End: 07-03-2021 ondansetron 4 mg disintegrating oral tablet (8 sources) Serotonin-3 Receptor Antagonist Start: 07-08-2023 End: 07-24-2023 take 4 mg by mouth every eight hours as needed Ondansetron Discontinued 4 MG PO EVERY 8 HOURS NEEDED July 08, 2023 12:00am July 24, 2023 11:27pm Start: 06-02-2021 End: 06-03-2021 take 4 mg intravenously every four hours as needed ondansetron 4mg/2ml (ZOFRAN) injection 4 mg oxyCODONE hydrochloride 5 mg oral capsule (20 sources) Opioid Agonist End: 06-09-2025 oxyCODONE 5 mg capsule ; q4hrs prn (5 mg) End: 09-Jun-2025 Status: Inactive pediatric multivitamin (6 sources) Start: 07-24-2023 End: 08-18-2023 pediatric multivitamin Discontinued .Route July 24, 2023 12:00am August 18, 2023 12:50am Start: 07-24-2023 pediatric mult ivitamin Active .Route July 24, 2023 12:00am piperacillin 4000 mg / tazobactam 500 mg injection (1 source) Penicillin-class Antibacterial, beta Lactamase Inhibitor Start: 06-03-2021 End: 06-05-2021 4,500 mg, Intravenous, EVERY 6 HOURS, First dose on Thu06/03/21 at 1800, Until Discontinued potassium chloride 20 meq powder for oral solution (5 sources) Start: 06-22-2021 End: 06-23-2021 40 mEq, Oral, ONCE, On Thu06/23/21 at 0730, For 1 dose Dilute with at least 4 ounces of cold water. May further dilute if GI adverse effects occur. Start: 06-20-2021 End: 06-20-2021 20 mEq, Oral, 2 TIMES DAILY, First dose on Carla 06/20/21 at 1000 Do not crush, chew, or suck on tablet. Tablet may also be broken in half and each half swallowed separately. Start: 06-19-2021 End: 06-19-2021 10 mEq, Intravenous, at 100 mL/hr, EVERY HOUR, First dose on Thu06/19/21 at 0430, For 3 doses Start: 06-03-2021 End: 06-03-2021 potassium chloride (K-DUR) t ablet ER 40 mEq potassium phosphates 30 mmol in sodium chloride 0.9%, with overfill 535 mL (total volume) IVPB (1 source) Start: 06-02-2021 End: 06-03-2021 potassium phosphates 30 mmol in sodium chloride 0.9%, with overfill 535 mL (total volume) IVPB 100 ml propofol 10 mg/ml injection (7 sources) General Anesthetic Start: 06-15-2021 End: 06-18-2021 5-50 mcg/kg/min 186.5 kg (5.595-55.95 mL/hr, rounded to 5.6-56 mL/hr), Intravenous, at 5.6-56 mL/hr, TITRATED, Starting on 06/15/21 at 0845 Second line For sedation, titrate to RASS +1 to -1 Dose Range: 5 to 50 mcg/kg/min Initial dose is 10 mcg/kg/min Max dose: 50 mcg/kg/min Contact physician if max dose does not achieve desired response If RASS 1 point below goal - decrease dose by 5 mcg/kg/min no faster than every 5 min If RASS 2 points below goal - decrease dose by 10 mcg/kg/min no faster than every 5 min If RASS at goal, continue current dose If RASS 1 point above goal - increase dose by 5 mcg/kg/min no faster than every 5 min If RASS 2 or more points above goal - increase dose by 10 mcg/kg/min no faster than every 5 min If after titration dose change patient exhibits adverse hemodynamic response, next titration dose change may be adjusted by one-half of the previous dose change If patient fails sedation interruption, resume propofol titration at 50% of previous dose Do not administer through the same I.V. catheter with blood or plasma. Tubing and any unused portions of propofol vials should be discarded after 12 hours. Do not administer through the same I.V. catheter with blood or plasma. Tubing and any unused portions of propofol vials should be discarded after 12 hours. Start: 06-04-2021 End: 06-06-2021 5-50 mcg/kg/min 189.6 kg (5. 688-56.88 mL/hr, rounded to 5.7- 56.9 mL/hr), Intravenous, at 5.7-56.9 mL/hr, TITRATED, Starting on Thu06/04/21 at 0145 For sedation, titrate to RASS +1 to -1 Dose Range: 5 to 50 mcg/kg/min Initial dose is 10 mcg/kg/min Max dose: 50 mcg/kg/min Contact physician if max dose does not achieve desired response If RASS 1 point below goal - decrease dose by 5 mcg/kg/min no faster than every 5 min If RASS 2 points below goal - decrease dose by 10 mcg/kg/min no faster than every 5 min If RASS at goal, continue current dose If RASS 1 point above goal - increase dose by 5 mcg/kg/min no faster than every 5 min If RASS 2 or more points above goal - increase dose by 10 mcg/kg/min no faster than every 5 min If after titration dose change patient exhibits adverse hemodynamic response, next titration dose change may be adjusted by one-half of the previous dose change If patient fails sedation interruption, resume propofol titration at 50% of previous dose Do not administer through the same I.V. catheter with blood or plasma. Tubing and any unused portions of propofol vials should be discarded after 12 hours. Start: 06-04-2021 End: 06-04-2021 Starting on Thu06/04/21 at 01 21, For 1 dose LAURA MAGDI: cabinet override Do not administer through the same I.V. catheter with blood or plasma. Tubing and any unused portions of propofol vials should be discarded after 12 hours. Start: 06-04-2021 End: 06-04-2021 ONCE PRN, Starting on 05/20 at 0124, For 1 dose remdesivir (VEKLURY) 100 mg in sodium chloride 0.9% 250 mL (total volume) infusion (1 source) Start: 06-03-2021 End: 06-03-2021 take 100 mg intravenously every twenty-four hours remdesivir (VEKLURY) 100 mg in sodium chloride 0.9% 250 mL (total volume) infusion rocuronium bromide 10 mg/ml injectable solution (1 source) Nondepolarizing Neuromuscular Gold Start: 06-04-2021 End: 06-04-2021 ONCE PRN, Starting on Thu06/04/21 at 0118, For 1 dose 10 ml sodium bicarbonate 84 mg/ml injection (1 source) Start: 06-04-2021 End: 06-04-2021 ONCE PRN, Starting on Thu06/04/21 at 0116, For 1 dose traZODone hydrochloride 100 mg oral tablet (20 sources) Serotonin Reuptake Inhibitor Start: 08-01-2021 End: 07-24-2023 take 1 tablet by mouth at bedtime traZODone HCl 100 MG Oral Tablet ; 1 Tablet bedtime for 0 days Quantity: 90 {Tablet} Refills: 1 Ordered: 15-Nov-2021 RAYNE Crews Start: 29-Aug-2021 End: 15-Nov-2021 Status: Inactive Start: 06-20-2021 (20 sources) Start: 06-24-2021 End: 06-24-2021 4,000 mg, Intravenous, ONCE, 1 dose, On Thu06/24/21 at 1200 Give 1 g over 60 min; 2 g over 120 min; 3 g over 180 min; 4 g over 240 min Start: 06-23-2021 End: 06-23-2021 1,000 mg, Intravenous, ONCE, 1 dose, On Thu06/23/21 at 0800 Give 1 g over 60 min; 2 g over 120 min; 3 g over 180 min; 4 g over 240 min Start: 06-21-2021 apply 1 dose topical ly twice daily Topical, 2 TIMES DAILY, First dose on Thu06/21/21 at 1045 Start: 06-21-2021 End: 06-22-2021 4,000 mg, Intravenous, ONCE, 1 dose, On Thu06/21/21 at 1000 Give 1 g over 60 min; 2 g over 120 min; 3 g over 180 min; 4 g over 240 min Start: 06-20-2021 Topical, PRN, Dry Skin, Starting on Thu06/20/21 at 1830 Apply to coccyx/ buttocks Start: 06-20-2021 End: 06-20-2021 4,000 mg, Intravenous, ONCE, 1 dose, On Thu06/20/21 at 0830 Give 1 g over 60 min; 2 g over 120 min; 3 g over 180 min; 4 g over 240 min Start: 06-19-2021 End: 06-26-2021 2,000 mg (18.4 mg/kg), Intra venous, at 250 mL/hr, Administer over 120 Minutes, EVERY 12 HOURS, First dose on Thu06/19/21 at 2200 Start: 06-19-2021 End: 06-19-2021 2,000 mg, Intravenous, ONCE, 1 dose, On Thu06/19/21 at 0600 Give 1 g over 60 min; 2 g over 120 min; 3 g over 180 min; 4 g over 240 min Start: 06-18-2021 End: 06-18-2021 2,000 mg, Intravenous, ONCE, 1 dose, On Thu06/18/21 at 0615 Give 1 g over 60 min; 2 g over 120 min; 3 g over 180 min; 4 g over 240 min Start: 06-18-2021 End: 06-18-2021 10 mmol, Intravenous, at 62. 5 mL/hr, Administer over 240 Minutes, ONCE, On Thu06/18/21 at 0500, For 1 dose Start: 06-16-2021 End: 06-20-2021 2,000 mg, Intravenous, at 10 0 mL/hr, Administer over 30 Minutes, EVERY 8 HOURS, First dose on 06/16/21 at 0845 Start: 06-08-2021 End: 06-09-2021 200 mg, Intravenous, ONCE, 1 dose, On 06/08/21 at 2145 Do not exceed 1.1 mg/minute Start: 06-08-2021 End: 06-08-2021 2,000 mg, Intravenous, ONCE, 1 dose, On Thu06/08/21 at 0600 Give 1 g over 60 min; 2 g over 120 min; 3 g over 180 min; 4 g over 240 min Start: 06-06-2021 End: 06-06-2021 2,000 mg, Intravenous, ONCE, 1 dose, On Carla 06/06/21 at 0600 Give 1 g over 60 min; 2 g over 120 min; 3 g over 180 min; 4 g over 240 min Start: 06-04-2021 End: 06-18-2021 12.5-200 mcg/hr (1.25-20 mL/ hr, rounded to 1.3-20 mL/hr), at 1.3-20 mL/hr, Intravenous, CONTINUOUS, Starting on Thu06/04/21 at 0200, Until Thu06/18/21 at 1253 Titrate to CPOT score less than 2 Dose Range: 12.5 to 200 mcg/hr Initial dose 150 mcg/hr. Max dose: 200 mcg/hr Contact physician if max dose does not achieve desired response If CPOT is greater than goal (indicating pain): increase fentanyl infusion by 25 mcg/hr no faster than every hour If CPOT at goal: continue same rate If CPOT less than 2 and RASS below goal: decrease fentanyl infusion by 25 mcg/hr no faster than every hour If patient fails sedation interruption, resume fentanyl titration at previous rate Start: 06-04-2021 End: 06-04-2021 400 mg, Intravenous, at 100 mL/hr, Administer over 60 Minutes, ONCE, On Thu06/04/21 at 1015, For 1 dose Hazardous Waste -- Refer to facility policy for handling and disposal. Start: 06-04-2021 End: 06-18-2021 1-10 mg/hr (1-10 mL/hr), Intravenous, at 1-10 mL/hr, CONTINUOUS, Starting on Thu06/04/21 at 0445 2nd line agent For sedation, titrate to RASS -1 to -2 Dose Range: 1 to 10 mg/hr Initial dose 1 mg/hr. Max dose: 10 mg/hr Contact physician if max dose does not achieve desired response If RASS 1 to 2 points below goal, decrease dose by 1 mg/hr no faster than every 30 min If RASS at goal, continue current dose If RASS 1 to 2 points above goal, administer 2mg IV bolus dose and increase dose by 1 mg/hr no faster than every 30 min If RASS 3 to 4 points above goal, administer 2mg IV bolus dose and increase dose by 2mg/hr no faster than every 30 min If patient fails sedation interruption, administer bolus of midazolam 2 mg IV and resume titration at 50% of previous dose Start: 06-03-2021 End: 06-04-2021 take 6 mg by mouth once daily 6 mg, Oral, DAILY, First dose on Thu06/03/21 at 1700, For 8 doses Start: 06-03-2021 [Order 1 Start ] Name: acetaminophen (TYLENOL) tablet 650 mg Signed Summary: 650 mg, Oral, EVERY 6 HOURS PRN, Pain Mild (1-3), Fever, For temp greater than 100.4 F (38 C), Starting on Thu06/03/21 at 1623 Maximum dose of acetaminophen is 4000 mg from all sources in 24 hours. [Order 1 End] [Order 2 Start] Name: acetaminophen (TYLENOL) suppository 650 mg Signed Summary: 650 mg, Rectal, EVERY 6 HOURS PRN, Pain Mild (1-3), Fever, For temp greater than 100.4 F (38 C), Starting on Thu06/03/21 at 1623 Administer if oral route cannot be used. [Order 2 End] Start: 06-03-2021 [Order 1 Start ] Name: ondansetron (ZOFRAN-ODT) disintegrating tablet 4 mg Signed Summary: 4 mg, Oral, EVERY 8 HOURS PRN, Nausea, Vomiting, Starting on Thu06/03/21 at 1623 [Order 1 End] [Order 2 Start] Name: ondansetron (ZOFRAN) injection 4 mg Signed Summary: 4 mg, Intravenous, EVERY 6 HOURS PRN, Nausea, Vomiting, Starting on Thu06/03/21 at 1623 Administer if oral route cannot be used. [Order 2 End] (1 source) End: 07-03-2021 (1 source) Start: 06-19-2021 End: 06-20-2021 1.65 mg (1.5 mL), Intravenou s, IMG ONCE PRN, Other, Suboptimal Echo Image, Starting on Thu06/19/21 at 1432, For 72 hours Administer up to 1.65 mg via slow IVP for suboptimal echocardiogram enhancement. May administer as concentrated dose or diluted in 8.5 mL of 0.9% sodium chloride for a total volume of 10 mL. May administer as divided doses to reach optimal image enhancement. (2 sources) Start: 06-04-2021 End: 06-06-2021 2-100 mcg/min (1.875-93.75 m L/hr, rounded to 1.9-93.8 mL/hr), Intravenous, at 1.9-93.8 mL/hr, CONTINUOUS, Starting on Thu06/04/21 at 0230 Titrate to MAP greater than 65 mmHg Typical Dose Range: 8 - 12 mcg/min Initial Dose is 5 mcg/min. Max Dose: 100 mcg/min Contact physician if max dose does not achieve desired response If rate LESS than 10 mcg/min: Titrate by 2 mcg/min no faster than every 5 minutes to goal If rate GREATER than or equal to 10 mcg/min: Titrate by 5 mcg/min no faster than every 5 minutes to goal When approaching therapeutic goal or weaning off, smaller titration increments of 1 mcg/min no faster than every 5 minutes may be used to maintain goal. Start: 06-04-2021 End: 06-04-2021 Starting on Thu06/04/21 at 02 02, For 1 dose Nikia Galan: cabinet override Problems Active Problems Problem Classification Problem Date Documented Da te Episodic/Chronic Abdominal pain (1 source) Flank pain; Translations: [Flank pain] Episodic Acute and unspecified renal failure (10 sources) Acute injury of kidney; Translations: [Acute kidney failure, unspecified] Resolved: 1 Episodic Allergic reactions (20 sources) Inflammatory dermatosis; Translations: [Dermatitis, unspecified] 05-12-2024 Episodic Anxiety disorders (20 sources) Anxiety; Translations: [Anxiety disorder, unspecified] Onset: 1 Chronic Aortic; peripheral; and visceral artery aneurysms (20 sources) Ascending aorta dilatation; Translations: [Thoracic aortic ectasia] 07-11-2021 Chronic Chronic ulcer of skin (20 sources) Pressure ulcer of buttock stage 3; Translations: [Pressure ulcer of right buttock, stage 3] Onset: 1 Chronic Coagulation and hemorrhagic disorders (3 sources) Platelet count below reference range; Translations: [Thrombocytopenia, unspecified] Onset: 1 Chronic Coma; stupor; and brain damage (2 sources) Daytime somnolence; Translations: [Hypersomnia, unspecified] Episodic Complications of surgical procedures or medical care (10 sources) Ventilator associated pneumonia; Translations: [Ventilator associated pneumonia] Onset: 1 Resolved: 1 Episodic Deficiency and other anemia (3 sources) Pancytopenia; Translations: [Other pancytopenia] Onset: 1 Chronic Deficiency and other anemia (14 sources) Iron 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; Translations: [Iron deficiency anemia secondary to blood loss (chronic)] Onset: 1 Chronic Deficiency and other anemia (3 sources) Anemia; Translations: [Anemia, unspecified] 08-18-2017 Episodic Deficiency and other anemia (20 sources) Iron deficiency anemia; Translations: [Iron deficiency anemia, unspecified] 08-26-2023 Episodic Diabetes mellitus without complication (20 sources) Hyperglycemia; Translations: [Hyperglycemia, unspecified] 07-25-2023 Episodic Diseases of white blood cells (4 sources) Leukopenia; Translations: [Decreased white blood cell count, unspecified] Onset: 1 Chronic Esophageal disorders (20 sources) Gastroesophageal reflux disease without esophagitis; Translations: [Gastro-esophageal reflux disease without esophagitis] Onset: 1 08-18-2017 Chronic Essential hypertension (20 sources) Hypertensive disorder; Translations: [Unspecified essential hypertension] 08-26-2023 Chronic Fluid and electrolyte disorders (10 sources) Hyponatremia; Translations: [Hypo-osmolality and hyponatremia] Resolved: 1 Episodic Genitourinary symptoms and ill-defined conditions (2 sources) Urinary incontinence; Translations: [Urinary incontinence, unspecified] Chronic Genitourinary symptoms and ill-defined conditions (20 sources) Dysuria; Translations: [Dysuria] 08-10-2021 Episodic Headache; including migraine (1 source) Tension-type headache, unspecified, not intractable; Translations: [Tension-type headache, unspecified, not intractable] Onset: 4 Chronic Headache; including migraine (2 sources) Headache; Translations: [Headache] 04-05-2024 Episodic Immunizations and screening for infectious disease (20 sources) Raised antinuclear antibody; Translations: [Other specified abnormal immunological findings in serum] Onset: 4 06-15-2024 Episodic Malaise and fatigue (20 sources) Asthenia; Translations: [Other malaise] 07-08-2021 Episodic Menstrual disorders (3 sources) Irregular periods; Translations: [Irregular menstruation, unspecified] 08-18-2017 Chronic Miscellaneous mental health disorders (1 source) Psychosomatic factor in physical condition; Translations: [Psychic factors associated with diseases classified elsewhere] Chronic Mood disorders (10 sources) Depressive disorder; Translations: [Depression] 08-02-2021 Chronic Mycoses (20 sources) Infection by Evin albicans; Translations: [Candidiasis, unspecified] Onset: 1 Resolved: Episodic Nausea and vomiting (7 sources) Nausea; Translations: [Nausea] 07-08-2023 Episodic Noninfectious gastroenteritis (20 sources) Chronic diarrhea; Translations: [Noninfective gastroenteritis and colitis, unspecified] 08-05-2024 Episodic Osteoarthritis (20 sources) Osteoarthritis; Translations: [Osteoarthrosis, unspecified whether generalized or localized, site unspecified] 08-26-2023 Chronic Other aftercare (20 sources) Patient encounter status; Translations: [Encounter for palliative care] Resolved: 1 Episodic Other aftercare (2 sources) Long-term current use of antibiotic; Translations: [buttermaker continuous churn (current) use of antibiotics] Resolved: 1 Episodic Other and ill-defined heart disease (2 sources) Heart disease; Translations: [Heart disease, unspecified] Chronic Other circulatory disease (3 sources) Elevated blood-pressure reading without diagnosis of hypertension; Translations: [Elevated blood-pressure reading, without diagnosis of hypertension] 08-18-2017 Episodic Other circulatory disease (8 sources) Orthostatic hypotension; Translations: [Orthostatic hypotension] 08-10-2021 Episodic Other connective tissue disease (1 source) Swelling of skeletal muscle; Translations: [Other specified soft tissue disorders] Episodic Other connective tissue disease (20 sources) Soft tissue lesion; Translations: [Other specified soft tissue disorders] Episodic Other connective tissue disease (8 sources) Calcaneal spur; Translations: [Calcaneal spur, unspecified foot] 07-04-2021 Episodic Other connective tissue disease (20 sources) Cramp; Translations: [Cramp and spasm] 08-26-2023 Episodic Other connective tissue disease (20 sources) Pain in both feet; Translations: [Pain in right foot] 11-15-2021 Episodic Other diseases of veins and lymphatics (8 sources) Lymphedema associated with obesity; Translations: [Lymphedema, not elsewhere classified] 09-03-2021 Chronic Other diseases of veins and lymphatics (12 sources) Lymphedema, not elsewhere classified; Translations: [Other lymphedema] Onset: 3 Chronic Other diseases of veins and lymphatics (20 sources) Lymphedema; Translations: [Other lymphedema] 07-08-2023 Chronic Other diseases of veins and lymphatics (2 sources) Chronic acquired lymphedema; Translations: [Lymphedema, not elsewhere classified] Onset: 3 09-04-2023 Chronic Other gastrointestinal disorders (1 source) Mixed irritable bowel syndrome; Translations: [Mixed irritable bowel syndrome] Onset: 4 Chronic Other gastrointestinal disorders (1 source) Irritable bowel syndrome without diarrhea; Translations: [Irritable bowel syndrome without diarrhea] Onset: 3 Chronic Other gastrointestinal disorders (20 sources) Diarrhea; Translations: [Diarrhea, unspecified] 08-18-2017 Episodic Other gastrointestinal disorders (2 sources) Constipation; Translations: [Constipation, unspecified] Resolved: 1 Episodic Other gastrointestinal disorders (2 sources) History of bariatric surgical procedure; Translations: [Bariatric surgery status] Episodic Other gastrointestinal disorders (1 source) Diarrhea, unspecified; Translations: [Diarrhea, unspecified] Onset: 4 Episodic Other hematologic conditions (20 sources) Hyperproteinemia; Translations: [Abnormality of plasma protein, unspecified] 06-15-2024 Episodic Other hematologic conditions (20 sources) ESR raised; Translations: [Elevated erythrocyte sedimentation rate] 06-15-2024 Episodic Other infections; including parasitic (20 sources) Personal history of other infectious and parasitic diseases 08-26-2023 Episodic Other lower respiratory disease (20 sources) Dyspnea on exertion; Translations: [Shortness of breath] Episodic Other lower respiratory disease (11 sources) Dyspnea; Translations: [Shortness of breath] 08-18-2017 Episodic Other lower respiratory disease (3 sources) Wheezing; Translations: [Wheezing] 08-18-2017 Episodic Other lower respiratory disease (8 sources) Hypoxemia; Translations: [Hypoxemia] 07-04-2021 Episodic Other lower respiratory disease (1 source) Hypoxemia; Translations: [Hypoxemia] Episodic Other lower respiratory disease (2 sources) Snoring; Translations: [Other respiratory abnormalities] Episodic Other nervous system disorders (20 sources) Carpal tunnel syndrome; Translations: [Carpal tunnel syndrome, right upper limb] 08-02-2021 Chronic Other nervous system disorders (2 sources) Carpal tunnel syndrome of right wrist; Translations: [Carpal tunnel syndrome, right upper limb] 08-29-2023 Chronic Other nervous system disorders (20 sources) Paresthesia of upper limb; Translations: [Anesthesia of skin] 08-26-2023 Episodic Other non-traumatic joint disorders (2 sources) Finding of movement; Translations: [Stiffness of joint, not elsewhere classified, site unspecified] Episodic Other non-traumatic joint disorders (3 sources) Joint pain; Translations: [Pain in joint, site unspecified] 11-11-2024 Episodic Other non-traumatic joint disorders (2 sources) Pain in unspecified joint; Translations: [Pain in unspecified joint] Onset: 4 Episodic Other nutritional; endocrine; and metabolic disorders (8 sources) Body mass index 40+ - severely obese; Translations: [Body mass index (BMI) 70 or greater, adult] Onset: 1 08-18-2017 Chronic Other nutritional; endocrine; and metabolic disorders (20 sources) Morbid obesity; Translations: [Morbid (severe) obesity due to excess calories] Onset: 1 08-18-2017 Chronic Other nutritional; endocrine; and metabolic disorders (3 sources) Severe obesity; Translations: [Morbid (severe) obesity due to excess calories] Onset: 1 Chronic Other nutritional; endocrine; and metabolic disorders (8 sources) Disorder of carbohydrate metabolism; Translations: [Other disorders of intestinal carbohydrate absorption] 08-01-2021 Chronic Other nutritional; endocrine; and metabolic disorders (8 sources) Hypomagnesemia; Translations: [Hypomagnesemia] 08-10-2021 Chronic Other nutritional; endocrine; and metabolic disorders (8 sources) Hyperphosphatemia; Translations: [Other disorders of phosphorus metabolism] 08-10-2021 Chronic Other nutritional; endocrine; and metabolic disorders (2 sources) Obesity; Translations: [Obesity, unspecified] 07-25-2023 Chronic Other nutritional; endocrine; and metabolic disorders (4 sources) Obesity, unspecified; Translations: [Obesity, unspecified] Onset: 4 07-25-2023 Chronic Other nutritional; endocrine; and metabolic disorders (3 sources) Morbid (severe) obesity due to excess calories; Translations: [Morbid (severe) obesity due to excess calories (HCC)] Onset: 2 Chronic Other screening for suspected conditions (not mental disorders or infectious disease) (8 sources) Imaging of thorax abnormal; Translations: [Abnormal findings on diagnostic imaging of other specified body structures] 08-01-2021 Chronic Other screening for suspected conditions (not mental disorders or infectious disease) (20 sources) Echocardiogram abnormal; Translations: [Abnormal findings on diagnostic imaging of heart and coronary circulation] Onset: 4 07-11-2021 Episodic Other skin disorders (20 sources) Vesicular eczema; Translations: [Dyshidrosis [pompholyx]] 11-15-2021 Episodic Other skin disorders (20 sources) Eruption; Translations: [Rash and other nonspecific skin eruption] 06-13-2024 Episodic Other upper respiratory disease (3 sources) Allergic rhinitis; Translations: [Allergic rhinitis, unspecified] 08-18-2017 Chronic Pneumonia (except that caused by tuberculosis or sexually transmitted disease) (12 sources) Pneumonia due to methicillin resistant Staphylococcus aureus; Translations: [Pneumonia due to Methicillin resistant Staphylococcus aureus] Onset: 1 Resolved: 1 Episodic Residual codes; unclassified (20 sources) Obstructive sleep apnea syndrome; Translations: [Obstructive sleep apnea (adult) (pediatric)] Onset: 1 08-24-2017 Chronic Residual codes; unclassified (8 sources) Periodic limb movement disorder; Translations: [Periodic limb movement disorder] 09-03-2021 Chronic Residual codes; unclassified (1 source) Obstructive sleep apnea (adult) (pediatric); Translations: [Obstructive sleep apnea (adult)(pediatric)] Chronic Residual codes; unclassified (2 sources) Periodic limb movement disorder; Translations: [Periodic limb movement disorder] Onset: 4 04-08-2024 Chronic Residual codes; unclassified (20 sources) Insomnia; Translations: [Insomnia, unspecified] Resolved: 1 Episodic Residual codes; unclassified (2 sources) Impaired exercise tolerance; Translations: [Other general symptoms] Episodic Residual codes; unclassified (2 sources) Edema of lower extremity; Translations: [Edema] Episodic Residual codes; unclassified (8 sources) Other specified health status; Translations: [Failure of outpatient treatment] 07-25-2023 Episodic Residual codes; unclassified (20 sources) Edema; Translations: [Edema, unspecified] 02-21-2022 Episodic Skin and subcutaneous tissue infections (20 sources) Cellulitis; Translations: [Cellulitis, unspecified] Onset: 07-08-2023 Episodic Spondylosis; intervertebral disc disorders; other back problems (2 sources) Backache; Translations: [Backache, unspecified] Episodic Unclassified (8 sources) Wound ; Translations: [Non-healing wound] 08-20-2021 Unclassified (20 sources) Follow up from hospital stay - Name of Hospital: [facility]. Date of Admission: 07/25/2023. Date of Discharge: 07/31/2023. The patient was hospitalized for Cellulitis. New medications include cefdinir 300mg bid, nystatin powder. Consultations ordered while in the hospital include Infectious disease. Patient was discharged to home. Note for Follow up from hospital stay: Pt is following up with Wander Garcia (infectious disease).Was given IV vancomycin and zosyn.Had another round of IV treatment this am.Soft tissue US was done and no abscess.Bloodwork showed no further infection of the blood so they feel it is just cellulitis now.Chest xray was done while there. 07-31-2023 Unclassified (20 sources) [ADDITIONAL REASON] Transition into care - The patient is transitioning into care from a hospital and a summary of care was reviewed. 07-31-2023 Unclassified (20 sources) follow up cellulitis - DX 02/06/23 2 days left on antibiotics so is wondering if needs additional; red area lessened but still having some pain. Dad is actively dying. She feels she is handling the stress of it ok.Has had upset stomach and diarrhea. Denies blood in stool and no foul smell. Called [facility] and was given cholestyramine refill since had been weaning herself off it before previously; took it starting on Thursday and just a 1/2 dose helped with her symptoms. 2023 Unclassified (20 sources) Follow up for multiple chronic conditions - The patient is here for follow-up of anxiety and obesity. The patient always takes the prescribed medications. No side effects noted. Note for Multiple chronic conditions follow-up: Pt feels like her breathing is getting worse and her legs are filling up with fluid - gradually over the past several months. Feels there hasn't been much change below the knees but it is worse above the knees.Pt needs a refill on her Venlafaxine. Has a lump on right lower back - had it when in therapy but says there were 2 and now there is just one.Using CPAP. Next appt with tello is in May.BP one day last week was 169/109 but eventually came down to 147/83. Received garments for her legs last week but now the issue is trying to getting them on.Did see lymphedema clinic in [place]. 02-21-2022 Unclassified (20 sources) Follow up for chronic condition - The patient is here for follow-up of obesity and other condition(s) (Edema, shortness of breath). The patient always takes the prescribed medications. No side effects noted. The patient's out of office blood pressure checks occur rarely. The patient states that weight has increased. Note for Chronic condition follow-up: Pt feels like the edema and shortness of breath has gotten worse.Has appt with oncology rep specialist in early June.Scheduled appt with bariatric surgeon at [facility] on 06/27/21.Has chronic low back pain, hip pain, and knee pain - sees ortho in [place] for management of this; has received injections which have not been effective. Needs knee replacement but is not a candidate due to weight.Legs itch and are tight.Bottom of feet hurt - used to see podiatry for bone spurs. Has burning of the bottom of feet x 6 months. Worse with standing and less with walking. 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 05-17-2021 Unclassified (20 sources) Edema - The onset of the edema has been gradual and has been occurring in an intermittent pattern for 3 months . The edema occurs in the evening (legs get very hot and pressure builds up to where her legs feel like they are going to explode). The edema is characterized as moderate , and the course of the edema has been unchanging. It affects both lower extremities (below the knee). The symptoms are relieved by elevation. Associated symptoms include dyspnea (worsening), fatigue and redness (variable; intermittent). The pertinent past medical history includes obesity and sleep apnea. 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 Swelling is better in the mornings but never gone.LMP was 1.5 months ago; always irregular. Very heavy bleeding - changes pad every hour. In the past was told to take iron but that seemed to make her bleeding heavier. About 4 years ago an ablation was recommended but she did not pursue.Has had diarrhea since cholecystectomy - symptomatic if misses dose of medication so has taken chronically since the surgery.Palms have been peeling. 03-14-2021 Unclassified (13 sources) [ADDITIONAL REASON] Follow up from hospital stay - Name of Hospital: [facility]. Date of Admission: 07/25/2023. Date of Discharge: 07/31/2023. The patient was hospitalized for Cellulitis. New medications include cefdinir 300mg bid, nystatin powder. Consultations ordered while in the hospital include Infectious disease. Patient was discharged to home. Note for Follow up from hospital stay: Pt is following up with Wander Garcia (infectious disease).Was given IV vancomycin and zosyn.Had another round of IV treatment this am.Soft tissue US was done and no abscess.Bloodwork showed no further infection of the blood so they feel it is just cellulitis now.Chest xray was done while there. 07-31-2023 Unclassified (20 sources) Follow up for multiple chronic conditions - The patient is here for follow-up of anxiety, GERD, hypertension and obesity. The patient always takes the prescribed medications. No side effects noted. The patient has a sedentary lifestyle. The patient's out of office blood pressure checks occur rarely and dietary compliance is poor and they admit to eating without regard of guidelines. The patient states that breathing effort is more difficult, weight has increased, depression has worsened and headaches are noted often but not on daily basis. The patient states that the disease has moderate emotional impact and severe physical impact. Note for Multiple chronic conditions follow-up: Wondering if allergic to dairy products, notices alot of pleghm production when ingesting dairy products.Patient states she is going through a hard time therefore her depression and anxiety has been a little more noticeable. Not something medication will help. Daugther going through some stuff.No more cellulitis issues. 04-01-2024 Unclassified (1 source) Follow up for multiple chronic conditions - The patient is here for follow-up of anxiety, GERD, hypertension and obesity. The patient always takes the prescribed medications. No side effects noted. The patient has a sedentary lifestyle. The patient's out of office blood pressure checks occur rarely and dietary compliance is fair often eating foods not normally recommended. The patient states that breathing effort is more difficult, weight has increased, depression has worsened and headaches are noted often but not on daily basis. The patient states that the disease has severe physical impact. Note for Multiple chronic conditions follow-up: Patient states she feels as if her mental health is getting worse due to her physical health not getting better.Struggles daily to get out of bed but knows if she doesn't she will stay in bed forever and eventually .In extreme pain chronically - knees, hips. Very out of breath - has to take breaks even just going from car to work. 06-09-2025 Unclassified (2 sources) Follow up for multiple chronic conditions - The patient is here for follow-up of anxiety, GERD, hypertension and obesity. The patient always takes the prescribed medications. No side effects noted. The patient has a sedentary lifestyle. The patient's out of office blood pressure checks occur rarely and dietary compliance is fair often eating foods not normally recommended. The patient states that breathing effort is more difficult, weight has increased, depression has worsened and headaches are noted often but not on daily basis. The patient states that the disease has severe physical impact. Note for Multiple chronic conditions follow-up: Patient states she feels as if her mental health is getting worse due to her physical health not getting better.Struggles daily to get out of bed but knows if she doesn't she will stay in bed forever and eventually .In extreme pain chronically - knees, hips. Very out of breath - has to take breaks even just going from car to work. ECHO normal 2022.Lots of headaches. Frontal area. Drinks about 70 ounces of water daily. Has 2-4 cups of coffee daily. Most of headaches are when she is at work. No chronic neck or shoulder pain. On the computer a lot for work and under bright lights. Eye exam UTD. Using APAP nightly. Some presyncope since COVID but increasing; usually when up and moving; no syncope. No vision changes. Only lasts for 1-2 seconds. 06-09-2025 Urinary tract infections (8 sources) Cystitis; Translations: [Cystitis, unspecified without hematuria] 08-10-2021 Episodic Viral infection (20 sources) COVID-19; Translations: [Pneumonia due to other virus not elsewhere classified] Onset: 1 Resolved: 1 Episodic Past or Other Problems Problem Classification Problem Date Documented Date Episodic/Chronic Diseases of mouth; excluding dental (3 sources) Angular cheilitis; Translations: [Diseases of lips] Onset: 07-03-2021 Episodic Neoplasms of unspecified nature or uncertain behavior (5 sources) Neoplasm of uncertain behavior of skin; Translations: [Neoplasm of uncertain behavior of skin] Onset: 06-30-2021 08-18-2017 Episodic Residual codes; unclassified (3 sources) Difficult venous access; Translations: [Other specified health status] Onset: 07-03-2021 Episodic Respiratory failure; insufficiency; arrest (adult) (3 sources) Acute respiratory failure; Translations: [Acute respiratory failure with hypoxia] Onset: 06-02-2021 Episodic Septicemia (except in labor) (8 sources) Sepsis-associated organ dysfunction; Translations: [Sepsis, unspecified organism] Onset: 06-02-2021 Episodic Unclassified (20 sources) Transition into care - The patient is transitioning into care from a hospital and a summary of care was reviewed. 08-26-2023 Unclassified (20 sources) [ADDITIONAL REASON] Follow up from hospital stay - Name of Hospital: [facility]. Date of Admission: 08/18/2023. Date of Discharge: 08/21/2023. The patient was hospitalized for cellulitis. New medications include Cefdinir for 10days and then amox for 10 days. No post hospital therapies were ordered. Patient was discharged with home health care. Note for Follow up from hospital stay: ID recommended her to start amox 500mg daily for suppression after she completes 10 day course of cefdinir. Symptoms have not yet resolved but are improving and no fever. 08-26-2023 Unclassified (20 sources) Follow up from hospital stay - Name of Hospital: [facility]. Date of Admission: 07/08/2023. Date of Discharge: 07/08/2023. The patient was hospitalized for infection and Cellulitis right lower extremity (rt knee). New medications include Cephalexin 500 mg . Patient was discharged to home. Current Symptoms: not healing and Painfull on inside and around to back of knee. Note for Follow up from hospital stay: Had improvement but not resolving as expected -- in the past when has had it. The leg pain seems to be more than it was in the past. Tight feeling; redness varies; some warmth. Blisters underneath the area - this is not the location of the majority of the pain. Venous doppler was negative.Taking cephalexin 500mg QID - has missed the last dose a few nights.First couple of days felt feverish.Has taken ibuprofen prn for the past couple of days. Trying to lie down and elevate the leg. 07-16-2023 Unclassified (20 sources) [ADDITIONAL REASON] Transition into care - The patient is transitioning into care from an emergency room and a summary of care was reviewed. 07-16-2023 Unclassified (20 sources) Leg pain - The leg pain began suddenly and has been occurring for 5 days. The symptoms have been occurring in an increasing pattern. The symptoms are described as a burning sensation, pain and sharp, stabbing pain and are mild to moderate in severity. There is involvement of the right lower extremity. There are no precipitating factors. There are no relieving factors. Note for Leg pain: Talked to [facility] on Thursday and was given cephalexin 500mg QID. Area red and swollenInitially woke up in the night on Thursday with pain, hot to touch. Leg was hotter than it is now.Able to sleep since starting the abx.Stabbing pains in the area at times. Seemed more swollen yesterday than it is today.No fever.Did meet with bariatric surgery in [place] - has to get down to 420 /BMI 70 - prior to having the surgery. Working with dieticians. 02-06-2023 Unclassified (20 sources) form to fill out - Patient is here today to complete form for bariatric surgery - needs an OV within the past 30 days.Has symptoms of carpal tunnel - hands are falling asleep all the time. 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 Is taking OTC PPI and still needing tums. Has had urinary burning, incontinence, and occasional frequency. No low back pain.BMs are normal.Frequent headaches - taking 2 tylenol 5 out of 7 days of the week.Still using BiPAP nightly. 09-10-2022 Unclassified (20 sources) Follow-up s/p Covid-19 - Pt reports that she is improving from her last visit and she is not getting as short of breath. Was able to walk back to the exam room today and states she didn't get as short of breath as she had before.Still using a walker but trying to go without it for short periods.Still hasn't received massager for the lymphedema. Has successfully weaned off of the trazodone and is sleeping well.Still hasn't had 6 minute walk test.Having some intermittent numbness in her hands - thinks is associated with using her walker and doing more office work. 11-15-2021 Unclassified (20 sources) recheck s/p covid - Pt is here for recheck s/p covid. 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 Pt is having bilateral leg edema. A couple of nights ago pt spit up a lot of liquid in the middle of the night and since then her throat does not feel right. Pt states she is struggling emotionally with all the issues she's having. Pt's heart rate was 115 and pulse ox was 92% after walking to the room. Has been discharged from the wound center secondary to the wound healing. Waiting on approval for the massager for lymphedema. Plans to get scheduled for 6 min walk test with pulmonology. 10-11-2021 Unclassified (20 sources) Follow up covid - Pt is here for follow up Covid. Pt does not feel like she is improving much but her physical therapist says she is improving. Pt states her heart rate goes very high on exertion. Pulse ox was 93% after walking back to the room and heart rate was 111 but after siting for 2 minutes pulse ox went up to 98% and heart rate went down to 76.At wound center yesterday - would is smaller. Will f/u with them again in 2 weeks.Saw lymphedema clinic - going to get leggings/stocking and get a massager.Continues to have a home health nurse 3 days a week.Hasn't seen pulmonology again yet.All over hair loss. Also having trouble sleeping. Taking melatonin and the trazodone. Trouble falling asleep.Has been doing PT - was able to walk across the house 4 times yesterday without a walker. They feel she is ok to return to work (per patient). They have been working with her to get her in/out of the car comfortably. She has been driving without issue.Using walker still.Job is sedentary - 80% is spent sitting. 09-12-2021 Unclassified (20 sources) follow up covid - Pt is here for follow up on Covid, pt is still short of breath and has a cough at times, clear discharge at times. After resting for a bit pulse ox was 97%Saw technical sales representatives on 08/20/21 - postinflammatory fibrosis per note. Likely will have 6 min walk test and O2 will be discontinued (since didn't need O2 last night during sleep study) - pulmonology to manage. No f/u appt scheduled with them until November.Had PFTs 08/20/21.Had chest CT 08/28/21.Had sleep study 08/28/21. Hasn't been using supplemental O2. Even during PT her oxygen has stayed about 90. Needs refill of trazodone and ferrous sulfate.Less restless legs on sleep study that was done last night compared to previous.Swelling in legs is back - hasn't started with lymphedema clinic yet.Has f/u with wound center on Thursday.PT and OT are each twice a week. They plan to start helping her get in/out of driving seet.Waiting for sore to heal before doing aquatic therapy.Nurse is coming to the office 3 times/week. 08-29-2021 Unclassified (20 sources) Follow up consultation - The patient is here to follow-up after hospitalization on : (pt went in June 02 to Aug 02 ; rehab jul 03- aug 02). Current symptoms include cough, dyspnea, weakness and bed sore on back. Note for Consultation follow-up: Going to [facility] every week - has appt w them tomorrow.Was evaluated by OT/PT ([facility]) but hasn't found out if she would be eligible for services.Nurse is coming 3 times per week.Has f/u appt with Dr. Keys ([facility]) 09/24 - is to have sleep study (had first step already but may have to do second portion) and PFTs prior to that appt. Using walker at home. Needs wheelchair when out and about.Is to be using supplemental oxygen prn.Last labs were done on 07/26/2021. Was treated for UTI with unknown abx at that time --- still having some intermittent urinary symptoms. Does have some intermittent tremors of right foot and hands. Occasional stomach aches.Coughing sometimes with dry heaving.Lots of nasal drainage - using flonase.Saw cardio ([facility]) who repeated ECHO but didn't feel cath was indicated. No f/u indicated.Weight is down 53 pounds since last OV.Had improvement in leg swelling until recently. Questioning if she could go to the lymphedema clinic.Has not been notified yet of counseling appt or the weight loss clinic. 08-12-2021 Unclassified (18 sources) [ADDITIONAL REASON] Follow up consultation - The patient is here to follow-up after hospitalization on : (pt went in June 02 to Aug 02 ; rehab jul 03- aug 02). Current symptoms include cough, dyspnea, weakness and bed sore on back. Note for Consultation follow-up: Going to [facility] every week - has appt w them tomorrow.Was evaluated by OT/PT ([facility]) but hasn't found out if she would be eligible for services.Nurse is coming 3 times per week.Has f/u appt with Dr. Keys ([facility]) 09/24 - is to have sleep study (had first step already but may have to do second portion) and PFTs prior to that appt. Using walker at home. Needs wheelchair when out and about.Is to be using supplemental oxygen prn.Last labs were done on 07/26/2021. Was treated for UTI with unknown abx at that time --- still having some intermittent urinary symptoms. Does have some intermittent tremors of right foot and hands. Occasional stomach aches.Coughing sometimes with dry heaving.Lots of nasal drainage - using flonase.Saw cardio ([facility]) who repeated ECHO but didn't feel cath was indicated. No f/u indicated.Weight is down 53 pounds since last OV.Had improvement in leg swelling until recently. Questioning if she could go to the lymphedema clinic.Has not been notified yet of counseling appt or the weight loss clinic. 08-12-2021 Unclassified (20 sources) Transition into care - The patient is transitioning into care from an emergency room and a summary of care was reviewed. 07-16-2023 Unclassified (13 sources) [ADDITIONAL REASON] Follow up from hospital stay - Name of Hospital: [facility]. Date of Admission: 07/08/2023. Date of Discharge: 07/08/2023. The patient was hospitalized for infection and Cellulitis right lower extremity (rt knee). New medications include Cephalexin 500 mg . Patient was discharged to home. Current Symptoms: not healing and Painfull on inside and around to back of knee. Note for Follow up from hospital stay: Had improvement but not resolving as expected -- in the past when has had it. The leg pain seems to be more than it was in the past. Tight feeling; redness varies; some warmth. Blisters underneath the area - this is not the location of the majority of the pain. Venous doppler was negative.Taking cephalexin 500mg QID - has missed the last dose a few nights.First couple of days felt feverish.Has taken ibuprofen prn for the past couple of days. Trying to lie down and elevate the leg. 07-16-2023 Unclassified (20 sources) Follow up from hospital stay - Name of Hospital: [facility]. Date of Admission: 08/18/2023. Date of Discharge: 08/21/2023. The patient was hospitalized for cellulitis. New medications include Cefdinir for 10days and then amox for 10 days. No post hospital therapies were ordered. Patient was discharged with home health care. Note for Follow up from hospital stay: ID recommended her to start amox 500mg daily for suppression after she completes 10 day course of cefdinir. Symptoms have not yet resolved but are improving and no fever. 08-26-2023 Unclassified (20 sources) [ADDITIONAL REASON] Follow up from hospital stay - Name of Hospital: [facility]. Date of Admission: 04/04/24. The patient was hospitalized for cellulitis . New medications include ATB-cefdinir (Often forgets to take afternoon dose). Patient was discharged to home. Note for Follow up from hospital stay: Pt states healing, skin currently peeling. No f/u with infectious disease scheduled. 04-15-2024 Unclassified (6 sources) Follow up from hospital stay - Name of Hospital: [facility]. Date of Admission: 04/04/24. The patient was hospitalized for cellulitis . New medications include ATB-cefdinir (Often forgets to take afternoon dose). Patient was discharged to home. Note for Follow up from hospital stay: Pt states healing, skin currently peeling. No f/u with infectious disease scheduled. 04-15-2024 Unclassified (14 sources) Follow up from hospital stay - Name of Hospital: [facility]. Date of Admission: 05/04/2024. Date of Discharge: 05/09/2024. The patient was hospitalized for Cellulitis. New medications include cephalexin, doxycycline, others are entered. Patient was discharged to home. Note for Follow up from hospital stay: Pt is doing better but not resolved.Currently on cephalexin 500mg QID and doxy 100mg BID x 10 days.No longer having diarrhea- that was determined to be abx related when stool testing was negative. Pt admitted today that she hadn't been taking her probiotic when on last abx. 05-12-2024 Unclassified (14 sources) Follow up consultation - The patient is here to follow-up after a Physical medicine consult on : (05/30/2024). Note for Consultation follow-up: Pt is here for follow up internal medicine. No new meds. Saw Dr. Xiao - they discussed prophylactic meds but given risks decided to avoid that. Has fever, redness, and headache when it has such a rapid onset - responds to abx.Continues with itchy blister like bumps on her left foot. No history of tick bites - not going outside much to even have possible exposure. 06-13-2024 Unclassified (14 sources) [ADDITIONAL REASON] Transition into care - The patient is transitioning into care from another physician and a summary of care was reviewed. 06-13-2024 Unclassified (6 sources) [ADDITIONAL REASON] Follow up from hospital stay - Name of Hospital: [facility]. Date of Admission: 05/04/2024. Date of Discharge: 05/09/2024. The patient was hospitalized for Cellulitis. New medications include cephalexin, doxycycline, others are entered. Patient was discharged to home. Note for Follow up from hospital stay: Pt is doing better but not resolved.Currently on cephalexin 500mg QID and doxy 100mg BID x 10 days.No longer having diarrhea- that was determined to be abx related when stool testing was negative. Pt admitted today that she hadn't been taking her probiotic when on last abx. 05-12-2024 Unclassified (4 sources) Transition into care - The patient is transitioning into care from another physician and a summary of care was reviewed. 06-13-2024 Unclassified (4 sources) [ADDITIONAL REASON] Follow up consultation - The patient is here to follow-up after a Physical medicine consult on : (05/30/2024). Note for Consultation follow-up: Pt is here for follow up internal medicine. No new meds. Saw Dr. Xiao - they discussed prophylactic meds but given risks decided to avoid that. Has fever, redness, and headache when it has such a rapid onset - responds to abx.Continues with itchy blister like bumps on her left foot. No history of tick bites - not going outside much to even have possible exposure. 06-13-2024 Results Test Name Value Interpretation Reference Range Facility LIZ SCREEN, IFA, W/REFL TITE R AND PATTERNon 11-16-2024 LIZ SCREEN, IFA Positive Abnormal NEGATIVE [facility] Comment on above: Result Comment: LIZ IFA is a first line screen for detecting the presence of up to approximately 150 autoantibodies in various autoimmune diseases. A positive LIZ IFA result is suggestive of autoimmune disease and reflexes to titer and pattern. Further laboratory testing may be considered if clinically indicated. For additional information, please refer to http://education.Uevoc.AppSheet/faq/MRR226 (This link is being provided for informational/ educational purposes only.) Performed By: #### 2 49, 6399, 7832, 4942, 375, 5810, 19106, 81739, 4420, 20083, 351, %50004, 809, 353, 905 #### [facility] [address], [address] [place] [address] Oral And Maxillofacial Pathologist: Lc Masters MD #### [id number] #### [facility], [address] [place] [address] Oral And Maxillofacial Pathologist: Yuki Paul MD,PhD,NEPTALI ANTINUCLEAR ANTIBODIES TITER AND PATTERNon 11-16-2024 LIZ PATTERN Nuclear, Homogeneous Abnormal [facility] Comment on above: Result Comment: Homo geneous pattern is associated with systemic lupus erythematosus (SLE), drug-induced lupus and juvenile idiopathic arthritis. AC-1: Homogeneous International Consensus on LIZ Patterns (https://doi.org/10.1515/jbpv-4929-5311) Performed By: #### 2 49, 6399, 7832, 4942, 375, 5810, 97496, 29727, 4420, 12106, 351, %76650, 809, 353, 905 #### [facility] [address], [address] [place] [address] Oral And Maxillofacial Pathologist: Lc Masters MD #### [id number] #### [facility], [address] [place] [address] Oral And Maxillofacial Pathologist: Yuki Paul MD,PhD,NEPTALI LIZ PATTERN Nuclear, Speckled Abnormal [facility] Comment on above: Result Comment: Spec kled pattern is associated with mixed connective tissue disease (MCTD), systemic lupus erythematosus (SLE), Sjogren's syndrome, dermatomyositis, and systemic sclerosis/polymyositis overlap. AC-2,4,5,29: Speckled International Consensus on LIZ Patterns (https://doi.org/10.1515/lpug-7045-2636) Performed By: #### 2 49, 6399, 7832, 4942, 375, 5810, 22358, 08137, 4420, 91160, 351, %39693, 809, 353, 905 #### [facility] [address] , [address] [place] [address] Oral And Maxillofacial Pathologist: Lc Masters MD #### [id number] #### [facility], [address] [place], [place] Oral And Maxillofacial Pathologist: Yuki Paul MD,PhD,NEPTALI LIZ TITER 1:160 High [facility] Comment on above: Result Comment: Refe rence Range <1:40 Negative 1:40-1:80 Low Antibody Level >1:80 Elevated Antibody Level Performed By: #### 2 49, 6399, 7832, 4942, 375, 5810, 76421, 24976, 4420, 99996, 351, %53897, 809, 353, 905 #### [facility] [address], [address] [place] [address] Oral And Maxillofacial Pathologist: Lc Masters MD #### [id number] #### [facility], [address] [place], [place] Oral And Maxillofacial Pathologist: Yuki Paul MD,PhD,NEPTALI C-REACTIVE PROTEINon 024 CRP [Mass/Vol] 33.1 mg/L High <8.0 [facility] Comment on above: Performed By: #### 2 49, 6399, 7832, 4942, 375, 5810, 95286, 96960, 4420, 78359, 351, %54216, 809, 353, 905 #### [facility] [address], [address] [place] [address] Oral And Maxillofacial Pathologist: Lc Mastres MD #### [id number] #### [facility], [address] [place] Oral And Maxillofacial Pathologist: Yuki Paul MD,PhD,NEPTALI CBC (INCLUDES DIFF/PLT)on Basophils (Bld) [#/Vol] 0.013 10*3/uL Normal 0-200 [facility] Comment on above: Performed By: #### 2 49, 6399, 7832, 4942, 375, 5810, 12282, 93270, 4420, 11716, 351, %73212, 809, 353, 905 #### [facility] [place] [address] Oral And Maxillofacial Pathologist: Lc Masters MD #### [id number] #### [facility], [address] [place], [place] [address] Oral And Maxillofacial Pathologist: Yuki Paul MD,PhD,NEPTALI Basophils/100 WBC (Bld) 0.2 % Normal [facility] Comment on above: Performed By: #### 2 49, 6399, 7832, 4942, 375, 5810, 93792, 75429, 4420, 76338, 351, %32831, 809, 353, 905 #### [facility] [place] [address] Oral And Maxillofacial Pathologist: Lc Masters MD #### [id number] #### [facility], [address] [place], [place] [address] Oral And Maxillofacial Pathologist: Yuki Paul MD,PhD,NEPTALI Eosinophils (Bld) [#/Vol] 0 10*3/uL Low 15-500 [facility] Comment on above: Performed By: #### 2 49, 6399, 7832, 4942, 375, 5810, 34214, 16279, 4420, 87810, 351, %89878, 809, 353, 905 #### [facility] [place] [address] Oral And Maxillofacial Pathologist: Lc Masters MD #### [id number] #### [facility], [address] [place] [address] Oral And Maxillofacial Pathologist: Yuki Paul MD,PhD,NEPTALI Eosinophils/100 WBC (Bld) 0.0 % Normal [facility] Comment on above: Performed By: #### 2 49, 6399, 7832, 4942, 375, 5810, 77568, 50610, 4420, 07087, 351, %66672, 809, 353, 905 #### [facility] [place] [address] Oral And Maxillofacial Pathologist: Lc Masters MD #### [id number] #### [facility], [address] [place] [address] Oral And Maxillofacial Pathologist: Yuki Paul MD,PhD,NEPTALI Erythrocyte distribution width (RBC) [Ratio] 14.2 % Normal 11.0-15.0 [facility] Comment on above: Performed By: #### 2 49, 6399, 7832, 4942, 375, 5810, 71032, 74432, 4420, 33206, 351, %54030, 809, 353, 905 #### [facility] [place] [address] Oral And Maxillofacial Pathologist: Lc Masters MD #### [id number] #### [facility]/[address] [address] Oral And Maxillofacial Pathologist: Yuki Paul MD,PhD,NEPTALI Hematocrit (Bld) [Volume fraction] 41.1 % Normal 35.0-45.0 [facility] Comment on above: Performed By: #### 2 49, 6399, 7832, 4942, 375, 5810, 81367, 56420, 4420, 20488, 351, %37751, 809, 353, 905 #### [facility] [place] [address] Oral And Maxillofacial Pathologist: Lc Masters MD #### [id number] #### [facility]/[address] [address] Oral And Maxillofacial Pathologist: Yuki Paul MD,PhD,NEPTALI Hemoglobin (Bld) [Mass/Vol] 13.0 g/dL Normal 11.7-15.5 [facility] Comment on above: Performed By: #### 2 49, 6399, 7832, 4942, 375, 5810, 80530, 26487, 4420, 34076, 351, %76638, 809, 353, 905 #### [facility] [place] [address] Oral And Maxillofacial Pathologist: Lc Masters MD #### [id number] #### [facility], [address] [place], [place] [address] Oral And Maxillofacial Pathologist: Yuki Paul MD,PhD,NEPTALI Lymphocytes (Bld) [#/Vol] 1.133 10*3/uL Normal 850-3900 [facility] Comment on above: Performed By: #### 2 49, 6399, 7832, 4942, 375, 5810, 57940, 71743, 4420, 45859, 351, %59425, 809, 353, 905 #### [facility] [place] [address] Oral And Maxillofacial Pathologist: Lc Masters MD #### 19661 #### [facility], [address] [place], [place] [address] Oral And Maxillofacial Pathologist: Yuki Paul MD,PhD,NEPTALI Lymphocytes/100 WBC (Bld) 17.7 % Normal [facility] Comment on above: Performed By: #### 2 49, 6399, 7832, 4942, 375, 5810, 89217, 28633, 4420, 39564, 351, %78152, 809, 353, 905 #### [facility] [place] [address] Oral And Maxillofacial Pathologist: Lc Masters MD #### [id number] #### [facility], [facility] [place] [id number] Oral And Maxillofacial Pathologist: Yuki Paul MD,PhD,NEPTALI MCH (RBC) [Entitic mass] 26.6 pg Low 27.0-33.0 [facility] Comment on above: Performed By: #### 2 49, 6399, 7832, 4942, 375, 5810, 45155, 67986, 4420, 47904, 351, %99646, 809, 353, 905 #### [facility] [address] Oral And Maxillofacial Pathologist: Lc Masters MD #### [id number] #### [facility], [address] [place] [address] Oral And Maxillofacial Pathologist: Yuki Paul MD,PhD,NEPTALI MCHC (RBC) [Mass/Vol] 31.6 g/dL Low 32.0-36.[address] [facility] Comment on above: Result Comment: For adults, a slight decrease in the calculated MCHC value (in the range of 30 to 32 g/dL) is most likely not clinically significant; however, it should be interpreted with caution in correlation with other red cell parameters and the patient's clinical condition. Performed By: #### 2 49, 6399, 7832, 4942, 375, 5810, 03340, 75885, 4420, 01063, 351, %69869, 809, 353, 905 #### [facility] [place] [address] Oral And Maxillofacial Pathologist: Lc Masters MD #### [id number] #### [facility]/[address] [address] Oral And Maxillofacial Pathologist: Yuki Paul MD,PhD,NEPTALI MCV (RBC) [Entitic vol] 84.0 fL Normal 80.0-100.0 [facility] Comment on above: Performed By: #### 2 49, 6399, 7832, 4942, 375, 5810, 06368, 59225, 4420, 18768, 351, %29516, 809, 353, 905 #### [place] [address] Oral And Maxillofacial Pathologist: Lc Masters MD #### [id number] #### [facility], [address] [place], [place] [address] Oral And Maxillofacial Pathologist: Yuki Paul MD,PhD,NEPTALI Monocytes (Bld) [#/Vol] 0.41 10*3/uL Normal 200-950 [facility] Comment on above: Performed By: #### 2 49, 6399, 7832, 4942, 375, 5810, 52041, 74098, 4420, 09991, 351, %06141, 809, 353, 905 #### [facility] [place] [address] Oral And Maxillofacial Pathologist: Lc Masters MD #### [id number] #### [facility], [address] [place], [place] [address] Oral And Maxillofacial Pathologist: Yuki Paul MD,PhD,NEPTALI Monocytes/100 WBC (Bld) 6.4 % Normal [facility] Comment on above: Performed By: #### 2 49, 6399, 7832, 4942, 375, 5810, 76522, 73496, 4420, 61720, 351, %74026, 809, 353, 905 #### [facility] [address], [address] [place] [address] Oral And Maxillofacial Pathologist: Lc Masters MD #### 12502 #### [facility], [facility] [place] [address] Oral And Maxillofacial Pathologist: Yuki Paul MD,PhD,NEPTALI Neutrophils (Bld) [#/Vol] 4.845 10*3/uL Normal 0601-9859 [facility] Comment on above: Performed By: #### 2 49, 6399, 7832, 4942, 375, 5810, 52840, 01029, 4420, 73315, 351, %31503, 809, 353, 905 #### [facility] [address], [address] [place] [address] Oral And Maxillofacial Pathologist: Lc Masters MD #### [id number] #### [facility], [address] [place] [id number] Oral And Maxillofacial Pathologist: Yuki Paul MD,PhD,NEPTALI Neutrophils/100 WBC (Bld) 75.7 % Normal [facility] Comment on above: Performed By: #### 2 49, 6399, 7832, 4942, 375, 5810, 41224, 08570, 4420, 79860, 351, %90450, 809, 353, 905 #### [facility] [place] [address] Oral And Maxillofacial Pathologist: Lc Masters MD #### [id number] #### [facility], [address] [place] [id number] Oral And Maxillofacial Pathologist: Yuki Paul MD,PhD,NEPTALI Platelet mean volume (Bld) [Entitic vol] 10.0 fL Normal 7.5-12.5 [facility] Comment on above: Performed By: #### 2 49, 6399, 7832, 4942, 375, 5810, 63263, 08738, 4420, 56455, 351, %74410, 809, 353, 905 #### [facility] [address], [address] [place] [address] Oral And Maxillofacial Pathologist: Lc Masters MD #### [id number] #### [facility], [address] [place] Oral And Maxillofacial Pathologist: Yuki Paul MD,PhD,NEPTALI Platelets (Bld) [#/Vol] 229 10*3/uL Normal 140-400 [facility] Comment on above: Performed By: #### 2 49, 6399, 7832, 4942, 375, 5810, 48290, 33591, 4420, 80777, 351, %76337, 809, 353, 905 #### [facility] [address], [address] [place] [address] Oral And Maxillofacial Pathologist: Lc Masters MD #### [id number] #### [facility], [address] [place] [address] Oral And Maxillofacial Pathologist: Yuki Paul MD,PhD,NEPTALI RBC (Bld) [#/Vol] 4.89 10*6/uL Normal 3.80-5.10 [facility] Comment on above: Performed By: #### 2 49, 6399, 7832, 4942, 375, 5810, 83243, 56101, 4420, 12415, 351, %66372, 809, 353, 905 #### [facility] [address], [address] [place] [address] Oral And Maxillofacial Pathologist: Lc Masters MD #### [id number] #### [facility], [address] [place] [address] Oral And Maxillofacial Pathologist: Yuki Paul MD,PhD,NEPTALI WBC (Bld) [#/Vol] 6.4 10*3/uL Normal 3.8-10.8 [facility] Comment on above: Performed By: #### 2 49, 6399, 7832, 4942, 375, 5810, 51256, 83181, 4420, 00350, 351, %94201, 809, 353, 905 #### [facility] [place] [address], [address] [place] [address] Oral And Maxillofacial Pathologist: Lc Masters MD #### [id number] #### [facility], [address] [place] [address] Oral And Maxillofacial Pathologist: Yuki Paul MD,PhD,NEPTALI CHROMATIN (NUCLEOSOMAL) ANTI BODYon 11-16-2024 CHROMATIN (NUCLEOSOMAL) ANTIBODY <1.0 NEG Normal <1.0 NEG [facility] Comment on above: Performed By: #### 2 49, 6399, 7832, 4942, 375, 5810, 90748, 43672, 4420, 59200, 351, %56590, 809, 353, 905 #### [facility] [place] [address], [address] [place] [address] Oral And Maxillofacial Pathologist: Lc Masters MD #### [id number] #### [facility], [facility] [place] Oral And Maxillofacial Pathologist: Yuki Paul MD,PhD,NEPTALI COMPLEMENT COMPONENT C3Con 1 01-17-2024 COMPLEMENT COMPONENT C3C 181 mg/dL Normal 83-193 [facility] Comment on above: Performed By: #### 2 49, 6399, 7832, 4942, 375, 5810, 31967, 51741, 4420, 34427, 351, %18985, 809, 353, 905 #### [facility] [address], [address] [place] [address] Oral And Maxillofacial Pathologist: Lc Masters MD #### [id number] #### [facility], [address] [place] Oral And Maxillofacial Pathologist: Yuki Paul MD,PhD,NEPTALI COMPLEMENT COMPONENT C4Con 1 01-17-2024 COMPLEMENT COMPONENT C4C 27 mg/dL Normal 15-57 [facility] Comment on above: Performed By: #### 2 49, 6399, 7832, 4942, 375, 5810, 90589, 12607, 4420, 52597, 351, %00338, 809, 353, 905 #### [facility] [address], [address] [place] [address] Oral And Maxillofacial Pathologist: Lc Masters MD #### [id number] #### [facility], [address] [place] Oral And Maxillofacial Pathologist: Yuki Paul MD,PhD,NEPTALI CREATININEon 11-16-2024 Creatinine [Mass/Vol] 0.81 mg/dL Normal 0.50-1.[address] [facility] Comment on above: Order Comment: FASTI NG:YES FASTING: YES Performed By: #### 2 49, 6399, 7832, 4942, 375, 5810, 54143, 18467, 4420, 48046, 351, %80126, 809, 353, 905 #### [place] [address] Oral And Maxillofacial Pathologist: Lc Masters MD #### [id number] #### [facility], [address] [place] [address] Oral And Maxillofacial Pathologist: Yuki Paul MD,PhD,NEPTALI GFR/1.73 sq M.predicted among non-blacks MDRD (S/P/Bld) [Vol rate/Area] 85 mL/min/{1.73_m2} Normal > OR = 60 [facility] Comment on above: Order Comment: FASTI NG:YES FASTING: YES Performed By: #### 2 49, 6399, 7832, 4942, 375, 5810, 99975, 81983, 4420, 32264, 351, %66015, 809, 353, 905 #### [place] [address] Oral And Maxillofacial Pathologist: Lc Masters MD #### [id number] #### [facility], [address] [place] [address] Oral And Maxillofacial Pathologist: Yuki Paul MD,PhD,NEPTALI DNA (DS) ANTIBODY, CRITHIDIA , IFA W/REFLon 11-16-2024 DNA AB (DS) CRITHIDIA,IFA Negative Normal NEGATIVE [facility] Comment on above: Performed By: #### 2 49, 6399, 7832, 4942, 375, 5810, 33998, 73660, 4420, 86647, 351, %19404, 809, 353, 905 #### [facility] [place] [address] Oral And Maxillofacial Pathologist: Lc Masters MD #### 59920 #### [facility], [address] [place] [address] Oral And Maxillofacial Pathologist: Yuki Paul MD,PhD,NEPTALI HEPATIC FUNCTION PANELon Albumin [Mass/Vol] 4.3 g/dL Normal 3.6-5.1 [facility] Comment on above: Performed By: #### 2 49, 6399, 7832, 4942, 375, 5810, 97501, 40087, 4420, 27947, 351, %16208, 809, 353, 905 #### [facility] [place] [address] Oral And Maxillofacial Pathologist: Lc Masters MD #### [id number] #### [facility], [address] [place] [address] Oral And Maxillofacial Pathologist: Yuki Paul MD,PhD,NEPTALI Albumin/Globulin [Mass ratio] 1.3 {ratio} Normal 1.0-2.5 [facility] Comment on above: Performed By: #### 2 49, 6399, 7832, 4942, 375, 5810, 11234, 99699, 4420, 31958, 351, %98040, 809, 353, 905 #### [facility] [place] [address] Oral And Maxillofacial Pathologist: Lc Masters MD #### 90256 #### [facility], [address] [place] [address] Oral And Maxillofacial Pathologist: Yuki Paul MD,PhD,NEPTALI ALP [Catalytic activity/Vol] 76 U/L Normal 37-153 [facility] Comment on above: Performed By: #### 2 49, 6399, 7832, 4942, 375, 5810, 04691, 65672, 4420, 94977, 351, %20600, 809, 353, 905 #### [facility] [address], [address] [place] [address] Oral And Maxillofacial Pathologist: Lc Masters MD #### 45841 #### [facility], [address] [place] [address] Oral And Maxillofacial Pathologist: Yuki Paul MD,PhD,NEPTALI ALT [Catalytic activity/Vol] 18 U/L Normal 6-29 [facility] Comment on above: Performed By: #### 2 49, 6399, 7832, 4942, 375, 5810, 64339, 97022, 4420, 67477, 351, %25182, 809, 353, 905 #### [facility] [address], [address] [place] [address] Oral And Maxillofacial Pathologist: Lc Masters MD #### [id number] #### [facility], [facility] [place] [address] Oral And Maxillofacial Pathologist: Yuki Paul MD,PhD,NEPTALI AST [Catalytic activity/Vol] 18 U/L Normal 10-35 [facility] Comment on above: Performed By: #### 2 49, 6399, 7832, 4942, 375, 5810, 43003, 30498, 4420, 65187, 351, %64800, 809, 353, 905 #### [facility] of [address], [address] [place] [address] Oral And Maxillofacial Pathologist: Lc Masters MD #### [id number] #### [facility], [address] [place] [address] Oral And Maxillofacial Pathologist: Yuki Paul MD,PhD,NEPTALI Bilirubin [Mass/Vol] 0.5 mg/dL Normal 0.2-1.2 [facility] Comment on above: Performed By: #### 2 49, 6399, 7832, 4942, 375, 5810, 40993, 17031, 4420, 86963, 351, %18427, 809, 353, 905 #### [facility] [place] [address] Oral And Maxillofacial Pathologist: Lc Masters MD #### 97237 #### [facility], [address] [place], [place] [address] Oral And Maxillofacial Pathologist: Yuki Paul MD,PhD,NEPTALI BILIRUBIN, INDIRECT 0.4 mg/dL (calc) Normal 0.2-1.2 [facility] Comment on above: Performed By: #### 2 49, 6399, 7832, 4942, 375, 5810, 44104, 98493, 4420, 18455, 351, %93912, 809, 353, 905 #### [facility] [place] [address] Oral And Maxillofacial Pathologist: Lc Masters MD #### [id number] #### [facility], [facility] [place] [id number] Oral And Maxillofacial Pathologist: Yuki Paul MD,PhD,NEPTALI Bilirubin.indirect [Mass/Vol] 0.1 mg/dL Normal < OR = 0.2 [facility] Comment on above: Performed By: #### 2 49, 6399, 7832, 4942, 375, 5810, 88572, 27023, 4420, 60384, 351, %72412, 809, 353, 905 #### [facility] [place] [address] Oral And Maxillofacial Pathologist: Lc Masters MD #### [id number] #### [facility], [facility] [place] [address] Oral And Maxillofacial Pathologist: Yuki Paul MD,PhD,NEPTALI Globulin (S) [Mass/Vol] 3.2 g/dL Normal 1.9-3.7 [facility] Comment on above: Performed By: #### 2 49, 6399, 7832, 4942, 375, 5810, 30984, 25433, 4420, 32472, 351, %01252, 809, 353, 905 #### [facility] [address], [address] [place] [address] Oral And Maxillofacial Pathologist: Lc Masters MD #### 25226 #### [facility], [address] [place] Oral And Maxillofacial Pathologist: Yuki Paul MD,PhD,NEPTALI Protein [Mass/Vol] 7.5 g/dL Normal 6.1-8.1 [facility] Comment on above: Performed By: #### 2 49, 6399, 7832, 4942, 375, 5810, 61752, 35749, 4420, 43316, 351, %86124, 809, 353, 905 #### [facility] [address], [address] [place] [address] Oral And Maxillofacial Pathologist: Lc Masters MD #### 06659 #### [facility], [address] [place] Oral And Maxillofacial Pathologist: Yuki Paul MD,PhD,NEPTALI NEYDA-1 ANTIBODYon 11-16-2024 NEYDA-1 ANTIBODY <1.0 NEG Normal <1.0 NEG [facility] Comment on above: Performed By: #### 2 49, 6399, 7832, 4942, 375, 5810, 44672, 71692, 4420, 29881, 351, %15599, 809, 353, 905 #### [facility] [place] [address] Oral And Maxillofacial Pathologist: Lc Masters MD #### [id number] #### [facility], [address] [place] Oral And Maxillofacial Pathologist: Yuki Paul MD,PhD,NEPTALI SCL-70 ANTIBODYon 11-16-2024 SCL-70 ANTIBODY <1.0 NEG Normal <1.0 NEG [facility] Comment on above: Performed By: #### 2 49, 6399, 7832, 4942, 375, 5810, 21962, 09782, 4420, 12552, 351, %27107, 809, 353, 905 #### [facility] [address] [facility], [address] [place] [address] Oral And Maxillofacial Pathologist: Lc Masters MD #### [id number] #### [facility], [address] [place] [address] Oral And Maxillofacial Pathologist: Yuki Paul MD,PhD,NEPTALI SED RATE BY MODIFIED WESTERG RENon 11-16-2024 SED RATE BY MODIFIED WESTERGREN 33 mm/h High < OR = 30 [facility] Comment on above: Performed By: #### 2 49, 6399, 7832, 4942, 375, 5810, 82551, 02941, 4420, 08078, 351, %90150, 809, 353, 905 #### [facility] [address] [facility], [address] [place] [address] Oral And Maxillofacial Pathologist: Lc Masters MD #### [id number] #### [facility], [address] [place] [address] Oral And Maxillofacial Pathologist: Yuki Paul MD,PhD,NEPTALI SJOGREN'S ANTIBODIES (SS-A,S S-B)on 11-16-2024 SJOGREN'S ANTIBODY (SS-A) <1.0 NEG Normal <1.0 NEG [facility] Comment on above: Performed By: #### 2 49, 6399, 7832, 4942, 375, 5810, 84029, 22725, 4420, 85262, 351, %79249, 809, 353, 905 #### [facility] [address] , [address] [place] [address] Oral And Maxillofacial Pathologist: Lc Masters MD #### [id number] #### [facility], [address] [place] [address] Oral And Maxillofacial Pathologist: Yuki Paul MD,PhD,NEPTALI SJOGREN'S ANTIBODY (SS-B) <1.0 NEG Normal <1.0 NEG [facility] Comment on above: Performed By: #### 2 49, 6399, 7832, 4942, 375, 5810, 18918, 17721, 4420, 84675, 351, %03727, 809, 353, 905 #### [facility] [address], [address] [place] [address] Oral And Maxillofacial Pathologist: Lc Masters MD #### [id number] #### [facility], [address] [place] [address] Oral And Maxillofacial Pathologist: Yuki Paul MD,PhD,NEPTALI SM/INTELLIGENCE OPERATIONS ANTIBODYon 11-16-2024 SM/INTELLIGENCE OPERATIONS ANTIBODY <1.0 NEG Normal <1.0 NEG [facility] Comment on above: Performed By: #### 2 49, 6399, 7832, 4942, 375, 5810, 38534, 06725, 4420, 70604, 351, %17017, 809, 353, 905 #### [facility] [address], [address] [place], [place] [address] Oral And Maxillofacial Pathologist: Lc Masters MD #### 43035 #### [facility], [address] [place], [place] Oral And Maxillofacial Pathologist: Yuki Paul MD,PhD,NEPTALI URIC ACIDon 11-16-2024 Urate [Mass/Vol] 6.5 mg/dL Normal 2.5-7.0 [facility] Comment on above: Result Comment: Ther apeutic target for gout patients: <6.0 mg/dL Performed By: #### 2 49, 6399, 7832, 4942, 375, 5810, 46347, 32251, 4420, 50585, 351, %82651, 809, 353, 905 #### [facility] [address], [address] [place] [address] Oral And Maxillofacial Pathologist: Lc Masters MD #### 53947 #### [facility], [address] [place] [address] Oral And Maxillofacial Pathologist: Yuki Paul MD,PhD,NEPTALI PROTEIN, TOTAL W/CREAT, [facility] URINEon 11-12-2024 Creatinine (U) [Mass/Vol] 99 mg/dL Normal 20-275 [facility] Comment on above: Performed By: #### 2 49, 6399, 7832, 4942, 375, 5810, 48804, 21687, 4420, 44940, 351, %33238, 809, 353, 905 #### [facility] [place] [address], [address] [place] [address] Oral And Maxillofacial Pathologist: Lc Masters MD #### [id number] #### [facility], [address] [place] [address] Oral And Maxillofacial Pathologist: Yuki Paul MD,PhD,NEPTALI Protein (U) [Mass/Vol] 9 mg/dL Normal 5-24 [facility] Comment on above: Performed By: #### 2 49, 6399, 7832, 4942, 375, 5810, 71995, 68597, 4420, 85036, 351, %54970, 809, 353, 905 #### [facility] [place] [address] [address] , [address] [place] [address] Oral And Maxillofacial Pathologist: Lc Masters MD #### [id number] #### [facility], [address] [place] [address] Oral And Maxillofacial Pathologist: Yuki Paul MD,PhD,NEPTALI PROTEIN/CREATININE RATIO 91 mg/g creat Normal 24-184 [facility] Comment on above: Performed By: #### 2 49, 6399, 7832, 4942, 375, 5810, 64273, 40142, 4420, 96475, 351, %69666, 809, 353, 905 #### [facility] [place] [address], [address] [place] [address] Oral And Maxillofacial Pathologist: Lc Masters MD #### [id number] #### [facility], [facility] [place] [id number] Oral And Maxillofacial Pathologist: Yuki Paul MD,PhD,NEPTALI PROTEIN/CREATININE RATIO 0.091 mg/mg creat Normal 0.024-0.184 [facility] Comment on above: Performed By: #### 2 49, 6399, 7832, 4942, 375, 5810, 89807, 08173, 4420, 63136, 351, %50063, 809, 353, 905 #### [facility] [address], [address] [place] [address] Oral And Maxillofacial Pathologist: Lc Masters MD #### [id number] #### [facility], [address] [place], [place] [id number] Oral And Maxillofacial Pathologist: Yuki Paul MD,PhD,NEPTALI URINALYSIS, COMPLETE 11-12 Appearance (U) CLEAR Normal CLEAR [facility] Comment on above: Order Comment: FASTI NG:YESFASTING: YES Performed By: #### 2 49, 6399, 7832, 4942, 375, 5810, 60264, 39078, 4420, 71245, 351, %30797, 809, 353, 905 #### [facility] [place] [address] Oral And Maxillofacial Pathologist: Lc Masters MD #### [id number] #### [facility], [address] [place] Oral And Maxillofacial Pathologist: Yuki Paul MD,PhD,NEPTALI BACTERIA NONE SEEN Normal NONE SEEN [facility] Comment on above: Order Comment: FASTI NG:YESFASTING: YES Performed By: #### 2 49, 6399, 7832, 4942, 375, 5810, 69996, 58731, 4420, 37264, 351, %54530, 809, 353, 905 #### [facility] [address] , [address] [place] [address] Oral And Maxillofacial Pathologist: Lc Masters MD #### [id number] #### [facility], [facility] [place] [address] Oral And Maxillofacial Pathologist: Yuki Paul MD,PhD,NEPTALI Bilirubin Ql (U) Negative Normal NEGATIVE [facility] Comment on above: Order Comment: FASTI NG:YESFASTING: YES Performed By: #### 2 49, 6399, 7832, 4942, 375, 5810, 19521, 28995, 4420, 62618, 351, %42710, 809, 353, 905 #### [facility] [address], [address] [place] [address] Oral And Maxillofacial Pathologist: Lc Masters MD #### [id number] #### [facility], [facility] [place] [address] Oral And Maxillofacial Pathologist: Yuki Paul MD,PhD,NEPTALI Color (U) YELLOW Normal YELLOW [facility] Comment on above: Order Comment: FASTI NG:YESFASTING: YES Performed By: #### 2 49, 6399, 7832, 4942, 375, 5810, 32632, 83252, 4420, 79535, 351, %34416, 809, 353, 905 #### [facility] [address], [address] [place] [address] Oral And Maxillofacial Pathologist: Lc Masters MD #### [id number] #### [facility], [address] [place] [address] Oral And Maxillofacial Pathologist: Yuki Paul MD,PhD,NEPTALI Glucose Ql (U) Negative Normal NEGATIVE [facility] Comment on above: Order Comment: FASTI NG:YESFASTING: YES Performed By: #### 2 49, 6399, 7832, 4942, 375, 5810, 95223, 09884, 4420, 40755, 351, %43539, 809, 353, 905 #### [facility] [address], [address] [place] [address] Oral And Maxillofacial Pathologist: Lc Masters MD #### [id number] #### [facility], [address] [place], [place] [address] Oral And Maxillofacial Pathologist: Yuki Paul MD,PhD,NEPTALI HYALINE CAST NONE SEEN Normal NONE SEEN [facility] Comment on above: Order Comment: FASTI NG:YESFASTING: YES Performed By: #### 2 49, 6399, 7832, 4942, 375, 5810, 35288, 59660, 4420, 90727, 351, %62319, 809, 353, 905 #### [facility] [place] [address] Oral And Maxillofacial Pathologist: Lc Masters MD #### [id number] #### [facility], [address] [place] [address] Oral And Maxillofacial Pathologist: Yuki Paul MD,PhD,NEPTALI Ketones Ql (U) Negative Normal NEGATIVE [facility] Comment on above: Order Comment: FASTI NG:YESFASTING: YES Performed By: #### 2 49, 6399, 7832, 4942, 375, 5810, 04759, 15638, 4420, 94956, 351, %62646, 809, 353, 905 #### [facility] [address] , [address] [place] [address] Oral And Maxillofacial Pathologist: Lc Masters MD #### [id number] #### [facility], [address] [place] [address] Oral And Maxillofacial Pathologist: Yuki Paul MD,PhD,NEPTALI Leukocyte esterase Test strip Ql (U) Negative Normal NEGATIVE [facility] Comment on above: Order Comment: FASTI NG:YESFASTING: YES Performed By: #### 2 49, 6399, 7832, 4942, 375, 5810, 48163, 02988, 4420, 35717, 351, %64300, 809, 353, 905 #### [facility] [address], [address] [place] [address] Oral And Maxillofacial Pathologist: Lc Masters MD #### [id number] #### [facility], [address] [place], [place] [address] Oral And Maxillofacial Pathologist: Yuki Paul MD,PhD,NEPTALI Nitrite Ql (U) Negative Normal NEGATIVE [facility] Comment on above: Order Comment: FASTI NG:YESFASTING: YES Performed By: #### 2 49, 6399, 7832, 4942, 375, 5810, 58894, 54264, 4420, 79154, 351, %41636, 809, 353, 905 #### [facility] [address], [address] [place] [address] Oral And Maxillofacial Pathologist: Lc Masters MD #### [id number] #### [facility], [facility] [place] [id number] Oral And Maxillofacial Pathologist: Yuki Paul MD,PhD,NEPTALI OCCULT BLOOD Negative Normal NEGATIVE [facility] Comment on above: Order Comment: FASTI NG:YESFASTING: YES Performed By: #### 2 49, 6399, 7832, 4942, 375, 5810, 72716, 64376, 4420, 15311, 351, %61561, 809, 353, 905 #### [facility] [address], [address] [place] [address] Oral And Maxillofacial Pathologist: Lc Masters MD #### [id number] #### [facility], [facility] [place] [address] Oral And Maxillofacial Pathologist: Yuki Paul MD,PhD,NEPTALI pH (U) 5.5 [pH] Normal 5.0-8.0 [facility] Comment on above: Order Comment: FASTI NG:YESFASTING: YES Performed By: #### 2 49, 6399, 7832, 4942, 375, 5810, 61450, 67161, 4420, 07468, 351, %04879, 809, 353, 905 #### [facility] [address], [address] [place] [address] Oral And Maxillofacial Pathologist: Lc Masters MD #### [id number] #### [facility], [address] [place], [place] [id number] Oral And Maxillofacial Pathologist: Yuki Paul MD,PhD,NEPTALI Protein Ql (U) Negative Normal NEGATIVE [facility] Comment on above: Order Comment: FASTI NG:YESFASTING: YES Performed By: #### 2 49, 6399, 7832, 4942, 375, 5810, 30205, 78099, 4420, 84654, 351, %37442, 809, 353, 905 #### [facility] [place] [address] Oral And Maxillofacial Pathologist: Lc Masters MD #### [id number] #### [facility], [address] [place], [place] [id number] Oral And Maxillofacial Pathologist: Yuki Paul MD,PhD,NEPTALI RBC NONE SEEN Normal < OR = 2 [facility] Comment on above: Order Comment: FASTI NG:YESFASTING: YES Performed By: #### 2 49, 6399, 7832, 4942, 375, 5810, 56676, 47703, 4420, 50062, 351, %67858, 809, 353, 905 #### [facility] [address] [place] [address] Oral And Maxillofacial Pathologist: Lc Masters MD #### [id number] #### [facility], [address] [place] [address] Oral And Maxillofacial Pathologist: Yuki Paul MD,PhD,NEPTALI Specific gravity (U) [Rel density] 1.020 Normal 1.001-1.035 [facility] Comment on above: Order Comment: FASTI NG:YESFASTING: YES Performed By: #### 2 49, 6399, 7832, 4942, 375, 5810, 08756, 16192, 4420, 39958, 351, %07517, 809, 353, 905 #### [facility] [place] [address] Oral And Maxillofacial Pathologist: Lc Masters MD #### [id number] #### [facility], [facility] [place] [id number] Oral And Maxillofacial Pathologist: Yuki Paul MD,PhD,NEPTALI SQUAMOUS EPITHELIAL CELLS 0-5 Normal < OR = 5 [facility] Comment on above: Order Comment: FASTI NG:YESFASTING: YES Performed By: #### 2 49, 6399, 7832, 4942, 375, 5810, 45779, 26237, 4420, 94695, 351, %49954, 809, 353, 905 #### [facility] [address], [address] [place] [address] Oral And Maxillofacial Pathologist: Lc Masters MD #### [id number] #### [facility], [address] [place] [address] Oral And Maxillofacial Pathologist: Yuki Paul MD,PhD,NEPTALI WBC NONE SEEN Normal < OR = 5 [facility] Comment on above: Order Comment: FASTI NG:YESFASTING: YES Performed By: #### 2 49, 6399, 7832, 4942, 375, 5810, 36838, 88784, 4420, 82123, 351, %59268, 809, 353, 905 #### [facility] [address], [address] [place] [address] Oral And Maxillofacial Pathologist: Lc Masters MD #### [id number] #### [facility], [address] [place] [address] Oral And Maxillofacial Pathologist: Yuki Paul MD,PhD,NEPTALI COMPREHENSIVE METABOLIC [facility]ly [facility] 06-25-2024 Albumin [Mass/Vol] 4.2 g/dL Normal 3.6-5.1 [facility] Comment on above: Performed By: #### 2 49, 6399, 7832, 4942, 375, 5810, 55291, 02906, 4420, 11846, 351, %48769, 809, 353, 905 #### [facility] [address], [address] [place] [address] Oral And Maxillofacial Pathologist: Lc Masters MD #### [id number] #### [facility], [facility] [place] [address] Oral And Maxillofacial Pathologist: Yuki Paul MD,PhD,NEPTALI Albumin/Globulin [Mass ratio] 1.2 {ratio} Normal 1.0-2.5 [facility] Comment on above: Performed By: #### 2 49, 6399, 7832, 4942, 375, 5810, 61585, 64242, 4420, 65549, 351, %21952, 809, 353, 905 #### [facility] [address], [address] [place] [address] Oral And Maxillofacial Pathologist: Lc Masters MD #### [id number] #### [facility], [address] [place] [address] Oral And Maxillofacial Pathologist: Yuki Paul MD,PhD,NEPTALI ALP [Catalytic activity/Vol] 66 U/L Normal 37-153 [facility] Comment on above: Performed By: #### 2 49, 6399, 7832, 4942, 375, 5810, 64439, 08208, 4420, 88647, 351, %93804, 809, 353, 905 #### [facility] [place] [address] Oral And Maxillofacial Pathologist: Lc Masters MD #### [id number] #### [facility], [address] [place], [place] [address] Oral And Maxillofacial Pathologist: Yuki Paul MD,PhD,NEPTALI ALT [Catalytic activity/Vol] 13 U/L Normal 6-29 [facility] Comment on above: Performed By: #### 2 49, 6399, 7832, 4942, 375, 5810, 84225, 30313, 4420, 02958, 351, %80115, 809, 353, 905 #### [facility] [place] [address] Oral And Maxillofacial Pathologist: Lc Masters MD #### [id number] #### [facility], [address] [place] [address] Oral And Maxillofacial Pathologist: Yuki Paul MD,PhD,NEPTALI AST [Catalytic activity/Vol] 14 U/L Normal 10-35 [facility] Comment on above: Performed By: #### 2 49, 6399, 7832, 4942, 375, 5810, 08851, 07264, 4420, 59956, 351, %41111, 809, 353, 905 #### [facility] [place] [address] Oral And Maxillofacial Pathologist: Lc Masters MD #### [id number] #### [facility], [address] [place] [address] Oral And Maxillofacial Pathologist: Yuki Paul MD,PhD,NEPTALI Bilirubin [Mass/Vol] 0.5 mg/dL Normal 0.2-1.2 [facility] Comment on above: Performed By: #### 2 49, 6399, 7832, 4942, 375, 5810, 02377, 22329, 4420, 75540, 351, %88116, 809, 353, 905 #### [facility] [address], [address] [place] [address] Oral And Maxillofacial Pathologist: Lc Masters MD #### [id number] #### [facility], [address] [place] [address] Oral And Maxillofacial Pathologist: Yuki Paul MD,PhD,NEPTALI BUN/CREATININE RATIO SEE NOTE: Normal 6-22 [facility] Comment on above: Result Comment: Not Reported: BUN and Creatinine are within reference range. Performed By: #### 2 49, 6399, 7832, 4942, 375, 5810, 44602, 38446, 4420, 04314, 351, %78690, 809, 353, 905 #### [facility] [address], [address] [place] [address] Oral And Maxillofacial Pathologist: Lc Masters MD #### [id number] #### [facility], [address] [place] [address] Oral And Maxillofacial Pathologist: Yuki Paul MD,PhD,NEPTALI Calcium [Mass/Vol] 9.5 mg/dL Normal 8.6-10.4 [facility] Comment on above: Performed By: #### 2 49, 6399, 7832, 4942, 375, 5810, 28670, 96648, 4420, 91933, 351, %72593, 809, 353, 905 #### [facility] [address], [address] [place] [address] Oral And Maxillofacial Pathologist: Lc Masters MD #### [id number] #### [facility], [address] [place] [address] Oral And Maxillofacial Pathologist: Yuki Paul MD,PhD,NEPTALI Chloride [Moles/Vol] 102 mmol/L Normal 98-110 [facility] Comment on above: Performed By: #### 2 49, 6399, 7832, 4942, 375, 5810, 88663, 47731, 4420, 75755, 351, %93251, 809, 353, 905 #### [facility] [address], [address] [place] [address] Oral And Maxillofacial Pathologist: Lc Masters MD #### [id number] #### [facility], [address] [place] [address] Oral And Maxillofacial Pathologist: Yuki Paul MD,PhD,NEPTALI CO2 [Moles/Vol] 27 mmol/L Normal 20-32 [facility] Comment on above: Performed By: #### 2 49, 6399, 7832, 4942, 375, 5810, 32562, 31153, 4420, 86305, 351, %04996, 809, 353, 905 #### [facility] [address], [address] [place] [address] Oral And Maxillofacial Pathologist: Lc Masters MD #### [id number] #### [facility], [facility] [place] [address] Oral And Maxillofacial Pathologist: Yuki Paul MD,PhD,NEPTALI Creatinine [Mass/Vol] 0.80 mg/dL Normal 0.50-1.[address] [facility] [address] [facility] Comment on above: Performed By: #### 2 49, 6399, 7832, 4942, 375, 5810, 41775, 14936, 4420, 01551, 351, %20645, 809, 353, 905 #### [facility] [place] [address] Oral And Maxillofacial Pathologist: Lc Masters MD #### [id number] #### [facility], [address] [place] [address] Oral And Maxillofacial Pathologist: Yuki Paul MD,PhD,NEPTALI GFR/1.73 sq M.predicted among non-blacks MDRD (S/P/Bld) [Vol rate/Area] 86 mL/min/{1.73_m2} Normal > OR = 60 [facility] Comment on above: Performed By: #### 2 49, 6399, 7832, 4942, 375, 5810, 71416, 39791, 4420, 95389, 351, %00806, 809, 353, 905 #### [facility] [place] [address] Oral And Maxillofacial Pathologist: Lc Masters MD #### [id number] #### [facility]/[place] [address] Oral And Maxillofacial Pathologist: Yuki Paul MD,PhD,NEPTLAI Globulin (S) [Mass/Vol] 3.4 g/dL Normal 1.9-3.7 [facility] Comment on above: Performed By: #### 2 49, 6399, 7832, 4942, 375, 5810, 59469, 15151, 4420, 88560, 351, %39014, 809, 353, 905 #### [place] [address] Oral And Maxillofacial Pathologist: Lc Masters MD #### [id number] #### [facility]/[place] [address] Oral And Maxillofacial Pathologist: Yuki Paul MD,PhD,NEPTALI Glucose [Mass/Vol] 95 mg/dL Normal 65-99 [facility] Comment on above: Result Comment: Fasting reference interval Performed By: #### 2 49, 6399, 7832, 4942, 375, 5810, 48827, 60972, 4420, 78392, 351, %47588, 809, 353, 905 #### [place] [address] Oral And Maxillofacial Pathologist: Lc Masters MD #### [id number] #### [facility], [address] [place] Oral And Maxillofacial Pathologist: Yuki Paul MD,PhD,NEPTALI Potassium [Moles/Vol] 4.9 mmol/L Normal 3.5-5.[address] [facility] [address] [facility] Comment on above: Performed By: #### 2 49, 6399, 7832, 4942, 375, 5810, 99091, 14502, 4420, 53235, 351, %75287, 809, 353, 905 #### [facility] [address], [address] [place] [address] Oral And Maxillofacial Pathologist: Lc Masters MD #### [id number] #### [facility], [address] [place] [address] Oral And Maxillofacial Pathologist: Yuki Paul MD,PhD,NEPTALI Protein [Mass/Vol] 7.6 g/dL Normal 6.1-8.1 [facility] Comment on above: Performed By: #### 2 49, 6399, 7832, 4942, 375, 5810, 06536, 11908, 4420, 60404, 351, %44099, 809, 353, 905 #### [place] [address] Oral And Maxillofacial Pathologist: Lc Masters MD #### 75219 #### [facility], [facility] [place] Oral And Maxillofacial Pathologist: Yuki Paul MD,PhD,NEPTALI Sodium [Moles/Vol] 138 mmol/L Normal 135-146 [facility] Comment on above: Performed By: #### 2 49, 6399, 7832, 4942, 375, 5810, 04426, 81028, 4420, 50100, 351, %62352, 809, 353, 905 #### [facility] [place] [address] [place] [address] Oral And Maxillofacial Pathologist: Lc Masters MD #### [id number] #### [facility], [address] [facility] [place] Oral And Maxillofacial Pathologist: Yuki Paul MD,PhD,NEPTALI Urea nitrogen [Mass/Vol] 17 mg/dL Normal 7-25 [facility] Comment on above: Performed By: #### 2 49, 6399, 7832, 4942, 375, 5810, 20674, 91515, 4420, 39635, 351, %83180, 809, 353, 905 #### [facility] [place] [address] Oral And Maxillofacial Pathologist: Lc Masters MD #### [id number] #### [facility], [address] [place] Oral And Maxillofacial Pathologist: Yuki Paul MD,PhD,NEPTALI LIPID PANEL, [facility] 07-2 Cholesterol [Mass/Vol] 183 mg/dL Normal <200 [facility] Comment on above: Performed By: #### 2 49, 6399, 7832, 4942, 375, 5810, 54911, 98639, 4420, 47708, 351, %73004, 809, 353, 905 #### [facility] [place] [address] Oral And Maxillofacial Pathologist: Lc Masters MD #### 52200 #### [facility], [address] [facility] [place] Oral And Maxillofacial Pathologist: Yuki Paul MD,PhD,NEPTALI Cholesterol in HDL [Mass/Vol] 53 mg/dL Normal > OR = 50 [facility] Comment on above: Performed By: #### 2 49, 6399, 7832, 4942, 375, 5810, 53786, 43099, 4420, 93419, 351, %86455, 809, 353, 905 #### [facility] [address], [address] [place] [address] Oral And Maxillofacial Pathologist: Lc Masters MD #### [id number] #### [facility], [address] [place] [address] Oral And Maxillofacial Pathologist: Yuki Paul MD,PhD,NEPTALI Cholesterol in LDL [Mass/Vol] 105 mg/dL High [facility] Comment on above: Result Comment: Refe rence range: <100 Desirable range <100 mg/dL for primary prevention; <70 mg/dL for patients with CHD or diabetic patients with > or = 2 CHD risk factors. LDL-C is now calculated using the Adele calculation, which is a validated novel method providing better accuracy than the Friedewald equation in the estimation of LDL-C. Maximiliano VAZQUEZ et al. ABBIE. 2013;310(19): 0437-0775 (http://education.Goodybag/faq/ZPS056) Performed By: #### 2 49, 6399, 7832, 4942, 375, 5810, 96090, 36095, 4420, 26772, 351, %20494, 809, 353, 905 #### [facility] [address], [address] [place] [address] Oral And Maxillofacial Pathologist: Lc Masters MD #### 25395 #### [facility], [address] [place] [address] Oral And Maxillofacial Pathologist: Yuki Paul MD,PhD,NEPTALI Cholesterol.total/Chol esterol in HDL [Mass ratio] 3.5 {ratio} Normal <5.0 [facility] Comment on above: Performed By: #### 2 49, 6399, 7832, 4942, 375, 5810, 57115, 41652, 4420, 06706, 351, %48622, 809, 353, 905 #### [facility] [address], [address] [place] [address] Oral And Maxillofacial Pathologist: Lc Masters MD #### [id number] #### [facility], [address] [place] [address] Oral And Maxillofacial Pathologist: Yuki Paul MD,PhD,NEPTALI NON HDL CHOLESTEROL 130 mg/dL (calc) High <130 [facility] Comment on above: Result Comment: For patients with diabetes plus 1 major ASCVD risk factor, treating to a non-HDL-C goal of <100 mg/dL (LDL-C of <70 mg/dL) is considered a therapeutic option. Performed By: #### 2 49, 6399, 7832, 4942, 375, 5810, 70534, 19277, 4420, 22348, 351, %50150, 809, 353, 905 #### [place] [address] Oral And Maxillofacial Pathologist: Lc Masters MD #### [id number] #### [facility], [address] [place], [place] Oral And Maxillofacial Pathologist: Yuki Paul MD,PhD,NEPTALI Triglyceride [Mass/Vol] 136 mg/dL Normal <150 [facility] Comment on above: Performed By: #### 2 49, 6399, 7832, 4942, 375, 5810, 87848, 61160, 4420, 87996, 351, %63701, 809, 353, 905 #### [facility] [place] [address] Oral And Maxillofacial Pathologist: Lc Masters MD #### 73781 #### [facility], [address] [place] [address] Oral And Maxillofacial Pathologist: Yuki Paul MD,PhD,NEPTALI Laboratory - Chemistry and C hemistry - challengeon 06-24-2024 Albumin [Mass/Vol] 4.2 g/dL Normal 3.6 - 5.1 g/dL [facility] Albumin/Globulin [Mass ratio] 1.2 {ratio} Normal 1.0 - 2.5 [facility], [facility]. ALP [Catalytic activity/Vol] 66 U/L Normal 37 - 153 U/L [facility], [facility]. ALT [Catalytic activity/Vol] 13 U/L Normal 6 - 29 U/L [facility], [facility] AST [Catalytic activity/Vol] 14 U/L Normal 10 - 35 U/L [facility], [facility] Bilirubin [Mass/Vol] 0.5 mg/dL Normal 0.2 - 1 .2 mg/dL [facility]; [facility], [facility] Calcium [Mass/Vol] 9.5 mg/dL Normal 8.6 - 10. 4 mg/dL [facility]; [facility], [facility] Chloride [Moles/Vol] 102 mmol/L Normal 98 - 11 0 mmol/L [facility], [facility]. Cholesterol [Mass/Vol] 183 mg/dL Normal [facility]; [facility], [facility] Cholesterol in HDL [Mass/Vol] 53 mg/dL Normal [facility]; [facility], [facility]. Cholesterol in LDL [Mass/Vol] 105 mg/dL Abnormal [facility]; [facility], [facility] CO2 [Moles/Vol] 27 mmol/L Normal 20 - 32 mmol/L [facility], [facility] Creatinine [Mass/Vol] 0.80 mg/dL Normal 0.50 - 1.03 mg/dL [facility], [facility]. GFR/1.73 sq M.predicted among non-blacks MDRD (S/P/Bld) [Vol rate/Area] 86 mL/min/{1.73_m2} Normal [facility], [facility].; [facility], [facility] Glucose [Mass/Vol] 95 mg/dL Normal 65 - 99 mg/dL [facility], [facility].; [facility], [facility] Potassium [Moles/Vol] 4.9 mmol/L Normal 3.5 - 5.3 mmol/L [facility]. Protein [Mass/Vol] 7.6 g/dL Normal 6.1 - 8.1 g/dL [facility].; [facility], [facility]. Sodium [Moles/Vol] 138 mmol/L Normal 135 - 146 mmol/L [facility].; [place] Triglyceride [Mass/Vol] 136 mg/dL Normal [facility].; [place] [facility] Urea nitrogen [Mass/Vol] 17 mg/dL Normal 7 - 25 mg/dL [facility] [place] [facility] No Panel Informationon 06-24 BUN/CREATININE RATIO SEE NOTE: Normal 6 - 22 [facility] [place] [facility]. CHOL/HDLC RATIO 3.5 Normal [facility]; [place] [employer] [facility]. GLOBULIN 3.4 Normal 1.9 - 3.7 [facility].; [place] [facility]. NON HDL CHOLESTEROL 130 Abnormal [facility].; [place] [facility]. LIZ SCREEN, IFA, W/REFL TITE R AND PATTERNon 06-15-2024 LIZ SCREEN, IFA Positive Abnormal NEGATIVE [facility] Comment on above: Result Comment: LIZ IFA is a first line screen for detecting the presence of up to approximately 150 autoantibodies in various autoimmune diseases. A positive LIZ IFA result is suggestive of autoimmune disease and reflexes to titer and pattern. Further laboratory testing may be considered if clinically indicated. For additional information, please refer to http://education.Uevoc.AppSheet/faq/NLT571 (This link is being provided for informational/ educational purposes only.) Performed By: #### 2 49, 6399, 7832, 4942, 375, 5810, 97954, 17455, 4420, 42754, 351, %50725, 809, 353, 905 #### [facility] [address] [facility], [address] [place] [address] Oral And Maxillofacial Pathologist: Lc Masters MD #### [id number] #### [facility], [address] [place] [address] Oral And Maxillofacial Pathologist: Yuki Paul MD,PhD,NEPTALI ANTINUCLEAR ANTIBODIES TITER AND PATTERNon 06-15-2024 LIZ PATTERN Nuclear, Homogeneous Abnormal [facility] Comment on above: Result Comment: Homo geneous pattern is associated with systemic lupus erythematosus (SLE), drug-induced lupus and juvenile idiopathic arthritis. AC-1: Homogeneous International Consensus on LIZ Patterns (https://doi.org/10.1515/xvpg-4431-4139) Performed By: #### 2 49, 6399, 7832, 4942, 375, 5810, 20613, 43096, 4420, 51732, 351, %77841, 809, 353, 905 #### [facility] [place] [id number] Oral And Maxillofacial Pathologist: Lc Masters MD #### [id number] #### [facility], [address] [place] [address] Oral And Maxillofacial Pathologist: Yuki Paul MD,PhD,NEPTALI LIZ PATTERN Nuclear, Speckled Abnormal [facility] Comment on above: Result Comment: Spec kled pattern is associated with mixed connective tissue disease (MCTD), systemic lupus erythematosus (SLE), Sjogren's syndrome, dermatomyositis, and systemic sclerosis/polymyositis overlap. AC-2,4,5,29: Speckled International Consensus on LIZ Patterns (https://doi.org/10.1515/awth-7740-3985) Performed By: #### 2 49, 6399, 7832, 4942, 375, 5810, 28860, 01709, 4420, 22185, 351, %23012, 809, 353, 905 #### [facility] [address], [address] [place] [address] Oral And Maxillofacial Pathologist: Lc Masters MD #### [id number] #### [facility], [address] [place] [address] Oral And Maxillofacial Pathologist: Yuki Paul MD,PhD,NEPTALI LIZ TITER 1:320 High [facility] Comment on above: Result Comment: Refe rence Range <1:40 Negative 1:40-1:80 Low Antibody Level >1:80 Elevated Antibody Level Performed By: #### 2 49, 6399, 7832, 4942, 375, 5810, 84618, 15684, 4420, 55982, 351, %65923, 809, 353, 905 #### [facility] [place] [address] Oral And Maxillofacial Pathologist: Lc Masters MD #### [id number] #### [facility], [address] [place], [place] [id number] Oral And Maxillofacial Pathologist: Yuki Paul MD,PhD,NEPTALI C-REACTIVE PROTEINon 024 CRP [Mass/Vol] 32.4 mg/L High <8.0 [facility] Comment on above: Performed By: #### 2 49, 6399, 7832, 4942, 375, 5810, 58150, 06589, 4420, 56383, 351, %56502, 809, 353, 905 #### [facility] [place] [address] Oral And Maxillofacial Pathologist: Lc Masters MD #### [id number] #### [facility], [address] [place] [address] Oral And Maxillofacial Pathologist: Yuki Paul MD,PhD,NEPTALI CBC (INCLUDES DIFF/PLT)on Basophils (Bld) [#/Vol] 0 10*3/uL Normal 0-200 [facility] Comment on above: Performed By: #### 2 49, 6399, 7832, 4942, 375, 5810, 64442, 33824, 4420, 68820, 351, %62247, 809, 353, 905 #### [facility] [place] [address] Oral And Maxillofacial Pathologist: Lc Masters MD #### [id number] #### [facility], [facility] [place] [id number] Oral And Maxillofacial Pathologist: Yuki Paul MD,PhD,NEPTALI Basophils/100 WBC (Bld) 0.0 % Normal [facility] Comment on above: Performed By: #### 2 49, 6399, 7832, 4942, 375, 5810, 42230, 20295, 4420, 62952, 351, %85759, 809, 353, 905 #### [facility] [address], [address] [place] [address] Oral And Maxillofacial Pathologist: Lc Masters MD #### [id number] #### [facility], [facility] [place] [id number] Oral And Maxillofacial Pathologist: Yuki Paul MD,PhD,NEPTALI Eosinophils (Bld) [#/Vol] 0 10*3/uL Low 15-500 [facility] Comment on above: Performed By: #### 2 49, 6399, 7832, 4942, 375, 5810, 98689, 72805, 4420, 87317, 351, %42145, 809, 353, 905 #### [facility] [address], [address] [place] [address] Oral And Maxillofacial Pathologist: Lc Masters MD #### [id number] #### [facility], [facility] [place] [id number] Oral And Maxillofacial Pathologist: Yuki Paul MD,PhD,NEPTALI Eosinophils/100 WBC (Bld) 0.0 % Normal [facility] Comment on above: Performed By: #### 2 49, 6399, 7832, 4942, 375, 5810, 70237, 87948, 4420, 21674, 351, %47085, 809, 353, 905 #### [facility] [address], [address] [place] [address] Oral And Maxillofacial Pathologist: Lc Masters MD #### [id number] #### [facility], [address] [place], [place] [address] Oral And Maxillofacial Pathologist: Yuki Paul MD,PhD,NEPTALI Erythrocyte distribution width (RBC) [Ratio] 15.1 % High 11.0-15.0 [facility] Comment on above: Performed By: #### 2 49, 6399, 7832, 4942, 375, 5810, 11958, 57246, 4420, 70659, 351, %94987, 809, 353, 905 #### [facility] [address], [address] [place] [address] Oral And Maxillofacial Pathologist: Lc Masters MD #### [id number] #### [facility]/[place] [id number] Oral And Maxillofacial Pathologist: Yuki Paul MD,PhD,NEPTALI Hematocrit (Bld) [Volume fraction] 41.6 % Normal 35.0-45.0 [facility] Comment on above: Performed By: #### 2 49, 6399, 7832, 4942, 375, 5810, 97245, 66160, 4420, 07087, 351, %81255, 809, 353, 905 #### [facility] [address], [address] [place] [address] Oral And Maxillofacial Pathologist: Lc Masters MD #### [id number] #### [facility], [facility] [place] [id number] Oral And Maxillofacial Pathologist: Yuki Paul MD,PhD,NEPTALI Hemoglobin (Bld) [Mass/Vol] 13.4 g/dL Normal 11.7-15.5 [facility] Comment on above: Performed By: #### 2 49, 6399, 7832, 4942, 375, 5810, 75740, 93068, 4420, 48532, 351, %63761, 809, 353, 905 #### [facility] [place] [address] Oral And Maxillofacial Pathologist: Lc Masters MD #### [id number] #### [facility], [address] [place], [place] [id number] Oral And Maxillofacial Pathologist: Yuki Paul MD,PhD,NEPTALI Lymphocytes (Bld) [#/Vol] 1.346 10*3/uL Normal 850-3900 [facility] Comment on above: Performed By: #### 2 49, 6399, 7832, 4942, 375, 5810, 30647, 78046, 4420, 82715, 351, %20131, 809, 353, 905 #### [facility] [place] [address] Oral And Maxillofacial Pathologist: Lc Masters MD #### [id number] #### [facility], [address] [place], [place] [address] Oral And Maxillofacial Pathologist: Yuki Paul MD,PhD,NEPTALI Lymphocytes/100 WBC (Bld) 19.5 % Normal [facility] Comment on above: Performed By: #### 2 49, 6399, 7832, 4942, 375, 5810, 48278, 02800, 4420, 01383, 351, %54487, 809, 353, 905 #### [facility] [place] [address] Oral And Maxillofacial Pathologist: Lc Masters MD #### [id number] #### [facility], [facility] [place] [address] Oral And Maxillofacial Pathologist: Yuki Paul MD,PhD,NEPTALI MCH (RBC) [Entitic mass] 27.7 pg Normal 27.0-33.0 [facility] Comment on above: Performed By: #### 2 49, 6399, 7832, 4942, 375, 5810, 06704, 80702, 4420, 24187, 351, %14446, 809, 353, 905 #### [facility] [place] [address] Oral And Maxillofacial Pathologist: Lc Masters MD #### [id number] #### [facility], [address] [place] [address] Oral And Maxillofacial Pathologist: Yuki Paul MD,PhD,NEPTALI MCHC (RBC) [Mass/Vol] 32.2 g/dL Normal 32.0-36.[address] [facility] [address] [facility] Comment on above: Performed By: #### 2 49, 6399, 7832, 4942, 375, 5810, 92250, 74213, 4420, 60474, 351, %36614, 809, 353, 905 #### [facility] [address] [place] [address] Oral And Maxillofacial Pathologist: Lc Masters MD #### [id number] #### [facility], [address] [place] [address] Oral And Maxillofacial Pathologist: Yuki Paul MD,PhD,NEPTALI MCV (RBC) [Entitic vol] 86.1 fL Normal 80.0-100.0 [facility] Comment on above: Performed By: #### 2 49, 6399, 7832, 4942, 375, 5810, 04130, 46326, 4420, 42017, 351, %77718, 809, 353, 905 #### [facility] [place] [address] [place] , [address] [place] [address] Oral And Maxillofacial Pathologist: Lc Masters MD #### [id number] #### [facility]/[address] Oral And Maxillofacial Pathologist: Yuki Paul MD,PhD,NEPTALI Monocytes (Bld) [#/Vol] 0.538 10*3/uL Normal 200-950 [facility] Comment on above: Performed By: #### 2 49, 6399, 7832, 4942, 375, 5810, 50293, 71608, 4420, 47060, 351, %36205, 809, 353, 905 #### [facility] [address], [address] [place] [address] Oral And Maxillofacial Pathologist: Lc Masters MD #### [id number] #### [facility], [facility] [place] [address] Oral And Maxillofacial Pathologist: Yuki Paul MD,PhD,NEPTALI Monocytes/100 WBC (Bld) 7.8 % Normal [facility] Comment on above: Performed By: #### 2 49, 6399, 7832, 4942, 375, 5810, 27530, 05757, 4420, 68818, 351, %99314, 809, 353, 905 #### [facility] [place] [address] Oral And Maxillofacial Pathologist: Lc Masters MD #### [id number] #### [facility], [facility] [place] [address] Oral And Maxillofacial Pathologist: Yuki Paul MD,PhD,NEPTALI Neutrophils (Bld) [#/Vol] 5.016 10*3/uL Normal 3097-6350 [facility] Comment on above: Performed By: #### 2 49, 6399, 7832, 4942, 375, 5810, 74709, 26987, 4420, 60205, 351, %92347, 809, 353, 905 #### [facility] [place] [address] Oral And Maxillofacial Pathologist: Lc Masters MD #### [id number] #### [facility], [address] [place] [id number] Oral And Maxillofacial Pathologist: Yuki Paul MD,PhD,NEPTALI Neutrophils/100 WBC (Bld) 72.7 % Normal [facility] Comment on above: Performed By: #### 2 49, 6399, 7832, 4942, 375, 5810, 08918, 50055, 4420, 99739, 351, %35414, 809, 353, 905 #### [facility] [address], [address] [place] [address] Oral And Maxillofacial Pathologist: Lc Masters MD #### [id number] #### [facility], [facility] [place] Oral And Maxillofacial Pathologist: Yuki Paul MD,PhD,NEPTALI Platelet mean volume (Bld) [Entitic vol] 10.0 fL Normal 7.5-12.5 [facility] Comment on above: Performed By: #### 2 49, 6399, 7832, 4942, 375, 5810, 65708, 84250, 4420, 00564, 351, %98606, 809, 353, 905 #### [facility] [place] [address] Oral And Maxillofacial Pathologist: Lc Masters MD #### [id number] #### [facility], [facility] [place] Oral And Maxillofacial Pathologist: Yuki Paul MD,PhD,NEPTALI Platelets (Bld) [#/Vol] 243 10*3/uL Normal 140-400 [facility] Comment on above: Performed By: #### 2 49, 6399, 7832, 4942, 375, 5810, 00386, 06740, 4420, 74232, 351, %71817, 809, 353, 905 #### [facility] [place] [address] Oral And Maxillofacial Pathologist: Lc Masters MD #### [id number] #### [facility], [address] [place] Oral And Maxillofacial Pathologist: Yuki Paul MD,PhD,NEPTALI RBC (Bld) [#/Vol] 4.83 10*6/uL Normal 3.80-5.10 [facility] Comment on above: Performed By: #### 2 49, 6399, 7832, 4942, 375, 5810, 63681, 41754, 4420, 09818, 351, %74474, 809, 353, 905 #### [facility] [place] [address] [place] , [address] [place] [address] Oral And Maxillofacial Pathologist: Lc Masters MD #### [id number] #### [facility], [address] [place] [address] Oral And Maxillofacial Pathologist: Yuki Paul MD,PhD,NEPTALI WBC (Bld) [#/Vol] 6.9 10*3/uL Normal 3.8-10.8 [facility] Comment on above: Performed By: #### 2 49, 6399, 7832, 4942, 375, 5810, 86009, 12763, 4420, 99272, 351, %12872, 809, 353, 905 #### [facility] [place] [address] [place] , [address] [place] [address] Oral And Maxillofacial Pathologist: Lc Masters MD #### [id number] #### [facility], [address] [place] [address] Oral And Maxillofacial Pathologist: Yuki Paul MD,PhD,NEPTALI COMPREHENSIVE METABOLIC PANE [facility] 06-15-2024 Albumin [Mass/Vol] 4.5 g/dL Normal 3.6-5.1 [facility] Comment on above: Performed By: #### 2 49, 6399, 7832, 4942, 375, 5810, 77083, 81949, 4420, 25722, 351, %54336, 809, 353, 905 #### [facility] [place] [address], [address] [place] [address] Oral And Maxillofacial Pathologist: Lc Masters MD #### [id number] #### [facility], [address] [place], [place] [id number] Oral And Maxillofacial Pathologist: Yuki Paul MD,PhD,NEPTALI Albumin/Globulin [Mass ratio] 1.2 {ratio} Normal 1.0-2.5 [facility] Comment on above: Performed By: #### 2 49, 6399, 7832, 4942, 375, 5810, 17115, 19298, 4420, 04364, 351, %56054, 809, 353, 905 #### [facility] [address], [address] [place] [address] Oral And Maxillofacial Pathologist: Lc Masters MD #### [id number] #### [facility], [address] [place], [place] [address] Oral And Maxillofacial Pathologist: Yuki Paul MD,PhD,NEPTALI ALP [Catalytic activity/Vol] 76 U/L Normal 37-153 [facility] Comment on above: Performed By: #### 2 49, 6399, 7832, 4942, 375, 5810, 85016, 88080, 4420, 70205, 351, %50636, 809, 353, 905 #### [facility] [address], [address] [place] [address] Oral And Maxillofacial Pathologist: Lc Masters MD #### [id number] #### [facility], [address] [place], [place] [address] Oral And Maxillofacial Pathologist: Yuki Paul MD,PhD,NEPTALI ALT [Catalytic activity/Vol] 12 U/L Normal 6-29 [facility] Comment on above: Performed By: #### 2 49, 6399, 7832, 4942, 375, 5810, 58578, 77322, 4420, 93009, 351, %56312, 809, 353, 905 #### [facility] [address], [address] [place] [address] Oral And Maxillofacial Pathologist: Lc Masters MD #### [id number] #### [facility], [address] [place] [address] Oral And Maxillofacial Pathologist: Yuki Paul MD,PhD,NEPTALI AST [Catalytic activity/Vol] 15 U/L Normal 10-35 [facility] Comment on above: Performed By: #### 2 49, 6399, 7832, 4942, 375, 5810, 67385, 26399, 4420, 39103, 351, %53568, 809, 353, 905 #### [facility] [address], [address] [place] [address] Oral And Maxillofacial Pathologist: Lc Masters MD #### [id number] #### [facility], [address] [place] [address] Oral And Maxillofacial Pathologist: Yuki Paul MD,PhD,NEPTALI Bilirubin [Mass/Vol] 0.4 mg/dL Normal 0.2-1.2 [facility] Comment on above: Performed By: #### 2 49, 6399, 7832, 4942, 375, 5810, 49732, 44990, 4420, 06986, 351, %51095, 809, 353, 905 #### [facility] [address], [address] [place] [address] Oral And Maxillofacial Pathologist: Lc Masters MD #### [id number] #### [facility], [address] [place] [address] Oral And Maxillofacial Pathologist: Yuki Paul MD,PhD,NEPTALI BUN/CREATININE RATIO SEE NOTE: Normal 6-22 [facility] Comment on above: Result Comment: Not Reported: BUN and Creatinine are within reference range. Performed By: #### 2 49, 6399, 7832, 4942, 375, 5810, 91617, 32075, 4420, 96514, 351, %33202, 809, 353, 905 #### [facility] [address], [address] [place] [address] Oral And Maxillofacial Pathologist: Lc Masters MD #### [id number] #### [facility], [address] [place], [place] [address] Oral And Maxillofacial Pathologist: Yuki Paul MD,PhD,NEPTALI Calcium [Mass/Vol] 10.0 mg/dL Normal 8.6-10.4 [facility] Comment on above: Performed By: #### 2 49, 6399, 7832, 4942, 375, 5810, 12950, 62671, 4420, 39883, 351, %55348, 809, 353, 905 #### [facility] [place] [address] Oral And Maxillofacial Pathologist: Lc Masters MD #### [id number] #### [facility], [address] [place], [place] [id number] Oral And Maxillofacial Pathologist: Yuki Paul MD,PhD,NEPTALI Chloride [Moles/Vol] 101 mmol/L Normal 98-110 [facility] Comment on above: Performed By: #### 2 49, 6399, 7832, 4942, 375, 5810, 82104, 01004, 4420, 71548, 351, %25961, 809, 353, 905 #### [facility] [place] [address] Oral And Maxillofacial Pathologist: Lc Masters MD #### 61068 #### [facility], [facility] [place] [id number] Oral And Maxillofacial Pathologist: Yuki Paul MD,PhD,NEPTALI CO2 [Moles/Vol] 25 mmol/L Normal 20-32 [facility] Comment on above: Performed By: #### 2 49, 6399, 7832, 4942, 375, 5810, 44711, 64397, 4420, 87041, 351, %12321, 809, 353, 905 #### [facility] [place] [address] [place] [address] Oral And Maxillofacial Pathologist: Lc Masters MD #### 25598 #### [facility], [address] [place] [address] Oral And Maxillofacial Pathologist: Yuki Paul MD,PhD,NEPTALI Creatinine [Mass/Vol] 0.89 mg/dL Normal 0.50-1.03 [facility] Comment on above: Performed By: #### 2 49, 6399, 7832, 4942, 375, 5810, 32096, 86216, 4420, 82208, 351, %23315, 809, 353, 905 #### [facility] [place] [address] Oral And Maxillofacial Pathologist: Lc Masters MD #### [id number] #### [facility], [address] [place] [address] Oral And Maxillofacial Pathologist: Yuki Paul MD,PhD,NEPTALI GFR/1.73 sq M.predicted among non-blacks MDRD (S/P/Bld) [Vol rate/Area] 76 mL/min/{1.73_m2} Normal > OR = 60 [facility] Comment on above: Performed By: #### 2 49, 6399, 7832, 4942, 375, 5810, 45224, 14079, 4420, 24795, 351, %16315, 809, 353, 905 #### [facility] [place] [address] Oral And Maxillofacial Pathologist: Lc Masters MD #### [id number] #### [facility], [address] [place] [address] Oral And Maxillofacial Pathologist: Yuki Paul MD,PhD,NEPTALI Globulin (S) [Mass/Vol] 3.7 g/dL Normal 1.9-3.7 [facility] Comment on above: Performed By: #### 2 49, 6399, 7832, 4942, 375, 5810, 56065, 88256, 4420, 78479, 351, %94896, 809, 353, 905 #### [place] [address] Oral And Maxillofacial Pathologist: Lc Masters MD #### [id number] #### [facility], [address] [place] [address] Oral And Maxillofacial Pathologist: Yuki Paul MD,PhD,NEPTALI Glucose [Mass/Vol] 110 mg/dL High 65-99 [facility] Comment on above: Result Comment: Fasting reference interval For someone without known diabetes, a glucose value between 100 and 125 mg/dL is consistent with prediabetes and should be confirmed with a follow-up test. Performed By: #### 2 49, 6399, 7832, 4942, 375, 5810, 94580, 10462, 4420, 97162, 351, %03561, 809, 353, 905 #### [place] [address] Oral And Maxillofacial Pathologist: Lc Masters MD #### [id number] #### [facility], [address] [place] [address] Oral And Maxillofacial Pathologist: Yuki Paul MD,PhD,NEPTALI Potassium [Moles/Vol] 4.7 mmol/L Normal 3.5-5.3 [facility] Comment on above: Performed By: #### 2 49, 6399, 7832, 4942, 375, 5810, 84063, 04054, 4420, 68999, 351, %49012, 809, 353, 905 #### [place] [address] Oral And Maxillofacial Pathologist: Lc Masters MD #### 95553 #### [facility], [address] [place] [address] Oral And Maxillofacial Pathologist: Yuki Paul MD,PhD,NEPTALI Protein [Mass/Vol] 8.2 g/dL High 6.1-8.1 [facility] Comment on above: Performed By: #### 2 49, 6399, 7832, 4942, 375, 5810, 34406, 72059, 4420, 95764, 351, %21188, 809, 353, 905 #### [facility] of [address], [address] [place] [address] Oral And Maxillofacial Pathologist: Lc Masters MD #### 58600 #### [facility], [address] [facility] [address] Oral And Maxillofacial Pathologist: Yuki Paul MD,PhD,NEPTALI Sodium [Moles/Vol] 136 mmol/L Normal 135-146 [facility] Comment on above: Performed By: #### 2 49, 6399, 7832, 4942, 375, 5810, 20633, 00998, 4420, 59929, 351, %32943, 809, 353, 905 #### [facility] of [address], [address] [place] [address] Oral And Maxillofacial Pathologist: Lc Masters MD #### 52312 #### [facility] [address] [place] [address] Oral And Maxillofacial Pathologist: Yuki Paul MD,PhD,NEPTALI Urea nitrogen [Mass/Vol] 21 mg/dL Normal 7-25 [facility] Comment on above: Performed By: #### 2 49, 6399, 7832, 4942, 375, 5810, 15701, 52723, 4420, 31440, 351, %54971, 809, 353, 905 #### [facility] [address], [address] [place] [address] Oral And Maxillofacial Pathologist: Lc Masters MD #### 69375 #### [facility], [address] [facility] [address] Oral And Maxillofacial Pathologist: Yuki Paul MD,PhD,NEPTALI HEMOGLOBIN A1con 06-15-2024 HEMOGLOBIN A1c 6.1 % of total Hgb High <5.7 [facility] Comment on above: Result Comment: For someone without known diabetes, a hemoglobin A1c value between 5.7% and 6.4% is consistent with prediabetes and should be confirmed with a follow-up test. For someone with known diabetes, a value <7% indicates that their diabetes is well controlled. A1c targets should be individualized based on duration of diabetes, age, comorbid conditions, and other considerations. This assay result is consistent with an increased risk of diabetes. Currently, no consensus exists regarding use of hemoglobin A1c for diagnosis of diabetes for children. This test was performed on the Jenna vasyl c503 platform. Effective 11/16/23, a change in test platforms from the [employer] to the Jenna vasyl c503 may have shifted HbA1c results compared to historical results. Based on laboratory validation testing conducted at [facility], the Jenna platform relative to the Tirado platform had an average increase in HbA1c value of < or = 0.3%. This difference is within accepted variability established by the National Glycohemoglobin Standardization Program. Note that not all individuals will have had a shift in their results and direct comparisons between historical and current results for testing conducted on different platforms is not recommended. Performed By: #### 2 49, 6399, 7832, 4942, 375, 5810, 32153, 16809, 4420, 66238, 351, %12241, 809, 353, 905 #### [facility] [address], [address] [place] [address] Oral And Maxillofacial Pathologist: Lc Masters MD #### [id number] #### [facility], [address] [place] [address] Oral And Maxillofacial Pathologist: Yuki Paul MD,PhD,NEPTALI SED RATE BY MODIFIED WESTERG RENkatherin 06-15-2024 SED RATE BY MODIFIED WESTERGREN 31 mm/h High < OR = 30 [facility] Comment on above: Performed By: #### 2 49, 6399, 7832, 4942, 375, 5810, 54136, 49982, 4420, 96690, 351, %24793, 809, 353, 905 #### [facility] [address], [address] [place] [address] Oral And Maxillofacial Pathologist: Lc Masters MD #### [id number] #### [facility], [address] [place] [address] Oral And Maxillofacial Pathologist: Yuki Paul MD,PhD,NEPTALI TSH W/REFLEX TO FT4on 2023 TSH W/REFLEX TO FT4 2.78 mIU/L Normal 0.40-4.50 [facility] Comment on above: Performed By: #### 2 49, 6399, 7832, 4942, 375, 5810, 73228, 75894, 4420, 94877, 351, %81340, 809, 353, 905 #### [facility] [place] [address] Oral And Maxillofacial Pathologist: Lc Masters MD #### [id number] #### [facility], [address] [place] [address] Oral And Maxillofacial Pathologist: Yuki Paul MD,PhD,NEPTALI URIC ACIDon 06-15-2024 Urate [Mass/Vol] 6.9 mg/dL Normal 2.5-7.0 [facility] Comment on above: Result Comment: Ther apeutic target for gout patients: <6.0 mg/dL Performed By: #### 2 49, 6399, 7832, 4942, 375, 5810, 90368, 80803, 4420, 93707, 351, %60002, 809, 353, 905 #### [facility] [place] [address] Oral And Maxillofacial Pathologist: Lc Masters MD #### [id number] #### [facility], [address] [place] [address] Oral And Maxillofacial Pathologist: Yuki Paul MD,PhD,NEPTALI VITAMIN B12on 06-15-2024 Cobalamin (Vitamin B12) [Mass/Vol] 339 pg/mL Normal 200-1100 [facility] Comment on above: Result Comment: Please Note: Although the reference range for vitamin B12 is 200-1100 pg/mL, it has been reported that between 5 and 10% of patients with values between 200 and 400 pg/mL may experience neuropsychiatric and hematologic abnormalities due to occult B12 deficiency; less than 1% of patients with values above 400 pg/mL will have symptoms. Performed By: #### 2 49, 6399, 7832, 4942, 375, 5810, 34081, [address], 4420, 63945, 351, %51357, 809, 353, 905 #### [facility] [address], [address] [place] [id number] Oral And Maxillofacial Pathologist: Lc Masters MD #### [id number] #### [facility], [address] [place] [address] Oral And Maxillofacial Pathologist: Yuki Paul MD,PhD,NEPTALI Laboratory - Chemistry and C hemistry - challengeon 06-13-2024 Albumin [Mass/Vol] 4.5 g/dL Normal 3.6 - 5.1 g/dL [facility] [employer] Albumin/Globulin [Mass ratio] 1.2 {ratio} Normal 1.0 - 2.5 [facility], [facility].; [employer] ALP [Catalytic activity/Vol] 76 U/L Normal 37 - 153 U/L [facility], [facility].; [employer] ALT [Catalytic activity/Vol] 12 U/L Normal 6 - 29 U/L [employer], [facility].; [employer] AST [Catalytic activity/Vol] 15 U/L Normal 10 - 35 U/L [employer], [facility].; [employer] Bilirubin [Mass/Vol] 0.4 mg/dL Normal 0.2 - 1 .2 mg/dL [employer], [facility].; [employer] Calcium [Mass/Vol] 10.0 mg/dL Normal 8.6 - 10. 4 mg/dL [facility], [facility].; [facility], [facility]. Chloride [Moles/Vol] 101 mmol/L Normal 98 - 11 0 mmol/L [facility], [facility]. CO2 [Moles/Vol] 25 mmol/L Normal 20 - 32 mmol/L [facility], [facility].; [facility], [facility]. Cobalamin (Vitamin B12) [Mass/Vol] 339 pg/mL Normal 200 - 1100 pg/mL [facility].; [facility], [facility]. Creatinine [Mass/Vol] 0.89 mg/dL Normal 0.50 - 1.03 mg/dL [facility], [facility].; [facility], [facility]. CRP [Mass/Vol] 32.4 mg/L Abnormal [facility].; [facility], [facility]. GFR/1.73 sq M.predicted among non-blacks MDRD (S/P/Bld) [Vol rate/Area] 76 mL/min/{1.73_m2} Normal [facility], [facility].; [facility], [facility]. Glucose [Mass/Vol] 110 mg/dL Abnormal 65 - 99 mg/dL [facility], [facility].; [facility], [facility]. Potassium [Moles/Vol] 4.7 mmol/L Normal 3.5 - 5.3 mmol/L [facility].; [facility], [facility]. Protein [Mass/Vol] 8.2 g/dL Abnormal 6.1 - 8.1 g/dL [facility].; [facility], [facility]. Sodium [Moles/Vol] 136 mmol/L Normal 135 - 146 mmol/L [facility], [facility].; [facility], [facility]. Urate [Mass/Vol] 6.9 mg/dL Normal 2.5 - 7.0 mg/dL [facility].; [facility], [facility]. Urea nitrogen [Mass/Vol] 21 mg/dL Normal 7 - 25 mg/dL [facility], [facility].; [facility], [facility]. Laboratory - Hematology and Cell countson 06-13-2024 Basophils (Bld) [#/Vol] 0 10*3/uL Normal 0 - 200 {cells/uL} [facility]. Basophils/100 WBC (Bld) 0.0 % Normal [facility].; [facility], [facility]. Eosinophils (Bld) [#/Vol] 0 10*3/uL Abnormal 15 - 500 {cells/uL} [facility], [facility].; [facility], [facility]. Eosinophils/100 WBC (Bld) 0.0 % Normal [facility].; [facility], [facility]. Erythrocyte distribution width (RBC) [Ratio] 15.1 % Abnormal 11.0 - 15.0 % [facility].; [facility], [facility]. HbA1c (Bld) [Mass fraction] 6.1 % Abnormal [facility].; [facility], [facility] Hematocrit (Bld) [Volume fraction] 41.6 % Normal 35.0 - 45.0 % [facility], [facility].; [facility], [facility] Hemoglobin (Bld) [Mass/Vol] 13.4 g/dL Normal 11.7 - 15.5 g/dL [facility].; [facility], [facility]. Lymphocytes (Bld) [#/Vol] 1.346 10*3/uL Normal 850 - 3900 {cells/uL} [facility].; [facility], [facility]. Lymphocytes/100 WBC (Bld) 19.5 % Normal [facility].; [facility], [facility]. MCH (RBC) [Entitic mass] 27.7 pg Normal 27.0 - 33.0 pg [facility].; [facility], [facility]. MCHC (RBC) [Mass/Vol] 32.2 g/dL Normal 32.0 - 36.0 g/dL [facility], [facility].; [facility], [facility]. MCV (RBC) [Entitic vol] 86.1 fL Normal 80.0 - 100.0 fL [facility].; [facility], [facility]. Monocytes (Bld) [#/Vol] 0.538 10*3/uL Normal 200 - 950 {cells/uL} [facility].; [facility], [facility]. Monocytes/100 WBC (Bld) 7.8 % Normal [facility]; [facility], [facility] Neutrophils (Bld) [#/Vol] 5.016 10*3/uL Normal 1500 - 7800 {cells/uL} [facility]; [facility], [facility] Neutrophils/100 WBC (Bld) 72.7 % Normal [facility]; [facility], [facility] Platelet mean volume (Bld) [Entitic vol] 10.0 fL Normal 7.5 - 12.5 fL [facility]; [facility], [facility] Platelets (Bld) [#/Vol] 243 10*3/uL Normal 140 - 400 [facility]; [facility], [facility] RBC (Bld) [#/Vol] 4.83 10*6/uL Normal 3.80 - 5.1 0 {Million/uL} [facility].; [facility], [facility]. WBC (Bld) [#/Vol] 6.9 10*3/uL Normal 3.8 - 10.8 [facility]; [facility] No Panel Informationon 06-13 LIZ PATTERN Nuclear, Homogeneous Abnormal [facility]; [facility], [facility] Work Phone: LIZ PATTERN Nuclear, Speckled Abnormal [facility]; [facility], [facility] Work Phone: LIZ SCREEN, IFA Positive Abnormal [facility]; [facility], [facility] LIZ TITER 1:320 Abnormal [facility]; [facility], [facility] Work Phone: BUN/CREATININE RATIO SEE NOTE: Normal 6 - 22 [facility].; [facility] GLOBULIN 3.7 Normal 1.9 - 3.7 [facility]; [facility], [facility] SED RATE BY MODIFIED WESTERGREN 31 mm/h Abnormal [facility]; [facility], [facility] TSH W/REFLEX TO FT4 2.78 {mIU/L} Normal 0.40 - 4 .50 {mIU/L} [facility], [facility]; [facility]. Culture, Blood (WB)on 2023 CUB No growth in 5 days. Normal [facility] Comment on above: Performed By: #### M 200.1000 ####[facility] [address] [place], [address] CUB No growth in 5 days. Normal [facility] Comment on above: Performed By: #### M 200.1000 ####[facility] [address] [place], [address] Basic Metabolic Profile (BMP )on 05-09-2024 BUN/CRE 16.3 RATIO Normal 10-20 [facility] Comment on above: Performed By: #### L 500.2500 ####[facility] [address] [place], [address] CA,Total 8.9 mg/dL Normal 8.5-10.1 [facility] Comment on above: Performed By: #### L 500.2500 ####[facility] [address] [place], [address] Chloride [Moles/Vol] 103 mmol/L Normal 98-107 [facility] Comment on above: Performed By: #### L 500.2500 ####[facility] [address] [place], [address] CO2 [Moles/Vol] 28.0 mmol/L Normal 21.0-32.0 [facility] Comment on above: Performed By: #### L 500.2500 ####[facility] [address] [place], [address] Creatinine [Mass/Vol] 0.74 mg/dL Normal 0.55-1.02 [facility] Comment on above: Result Comment: The validity of the calculated GFR GFRAA in patients over70 years has not been determined. Clinical correlation isessential. Performed By: #### L 500.2500 ####[facility] [address] [place], [address] ECRCL 164.91 ml/min Normal [facility] Comment on above: Performed By: #### L 500.2500 ####[facility] [address] [place], [address] EST GFR - AA 105 mL/min Normal >60 [facility] Comment on above: Result Comment: Afri can [place] GFR Calc Performed By: #### L 500.2500 ####[facility] [address] [place], [address] GAP 6 Normal 5-15 [facility] Comment on above: Performed By: #### L 500.2500 ####[facility] [address] [place], [address] GFR/1.73 sq M.predicted among non-blacks MDRD (S/P/Bld) [Vol rate/Area] 87 mL/min/{1.73_m2} Normal >60 [facility] Comment on above: Result Comment: Non- GFR Calc Performed By: #### L 500.2500 ####[facility] [address] [place], [address] Glucose [Mass/Vol] 109 mg/dL High 74-106 [facility] Comment on above: Result Comment: Fast ing Glucose result from 100 to 125 mg/dLsuggests IMPAIRED HOMEOSTASIS per A.D.A. criteria. Performed By: #### L 500.2500 ####[facility] [address] [place], [address] Potassium [Moles/Vol] 3.6 mmol/L Normal 3.5-5.1 [facility] Comment on above: Performed By: #### L 500.2500 ####[facility] [address] [place], [address] Sodium [Moles/Vol] 137 mmol/L Normal 136-145 [facility] Comment on above: Performed By: #### L 500.2500 ####[facility] [address] [place], [address] Urea nitrogen [Mass/Vol] 12 mg/dL Normal 7-18 [facility] Comment on above: Performed By: #### L 500.2500 ####[facility] [address] [place], [address] Basic Metabolic Profile (BMP )on 05-08-2024 BUN/CRE 12.9 RATIO Normal 10-20 [facility] Comment on above: Performed By: #### L 100.0100, L500.2500 ####[facility] [address] [place], [address] [place],Total 8.6 mg/dL Normal 8.5-10.1 [facility] Comment on above: Performed By: #### L 100.0100, L500.2500 ####[facility] [address] [place], [address] Chloride [Moles/Vol] 106 mmol/L Normal 98-107 [facility] Comment on above: Performed By: #### L 100.0100, L500.2500 ####[facility] [address] [place], [address] CO2 [Moles/Vol] 25.0 mmol/L Normal 21.0-32.0 [facility] Comment on above: Performed By: #### L 100.0100, L500.2500 ####[facility] [address] [place], [address] Creatinine [Mass/Vol] 0.77 mg/dL Normal 0.55-1.02 [facility] Comment on above: Result Comment: The validity of the calculated GFR GFRAA in patients over70 years has not been determined. Clinical correlation isessential. Performed By: #### L 100.0100, L500.2500 ####[facility] [address] [place], [address] ECRCL 158.49 ml/min Normal [facility] Comment on above: Performed By: #### L 100.0100, L500.2500 ####[facility] [address] [place], [address] EST GFR - AA 99 mL/min Normal >60 [facility] Comment on above: Result Comment: Afri can [place] GFR Calc Performed By: #### L 100.0100, L500.2500 ####[facility] [address] [place], [address] GAP 6 Normal 5-15 [facility] Comment on above: Performed By: #### L 100.0100, L500.2500 ####[facility] [address] [place], [address] GFR/1.73 sq M.predicted among non-blacks MDRD (S/P/Bld) [Vol rate/Area] 82 mL/min/{1.73_m2} Normal >60 [facility] Comment on above: Result Comment: Non- GFR Calc Performed By: #### L 100.0100, L500.2500 ####[facility] [address] [place], [address] Glucose [Mass/Vol] 110 mg/dL High 74-106 [facility] Comment on above: Result Comment: Fast ing Glucose result from 100 to 125 mg/dLsuggests IMPAIRED HOMEOSTASIS per A.D.A. criteria. Performed By: #### L 100.0100, L500.2500 ####[facility] [address] [place], [address] Potassium [Moles/Vol] 3.7 mmol/L Normal 3.5-5.1 [facility] Comment on above: Performed By: #### L 100.0100, L500.2500 ####[facility] [address] [place], [address] Sodium [Moles/Vol] 137 mmol/L Normal 136-145 [facility] Comment on above: Performed By: #### L 100.0100, L500.2500 ####[facility] [address] [place], [address] Urea nitrogen [Mass/Vol] 10 mg/dL Normal 7-18 [facility] Comment on above: Performed By: #### L 100.0100, L500.2500 ####[facility] [address] [place], [address] CBC W/Diff, Automatedon 06-0 9-2024 Absolute Lymph 0.70 X10 3/uL Low 0.83-4.51 [facility] Comment on above: Performed By: #### L 100.0100, L500.2500 ####[facility] [address] [place], [address] Absolute Neut 4.2 X10 3/uL Normal 2.0-7.7 [facility] Comment on above: Performed By: #### L 100.0100, L500.2500 ####[facility] [address] [place], [address] Basophils/100 WBC (Bld) 0.4 % Normal 0-1 [facility] Comment on above: Performed By: #### L 100.0100, L500.2500 ####[facility] [address] [place], [address] Eosinophils/100 WBC (Bld) 0.0 % Normal 0-5 [facility] Comment on above: Performed By: #### L 100.0100, L500.2500 ####[facility] [address] [place], [address] Erythrocyte distribution width (RBC) [Ratio] 15.1 % High 11.6-14.6 [facility] Comment on above: Performed By: #### L 100.0100, L500.2500 ####[facility] [address] [place], [address] Hematocrit (Bld) [Volume fraction] 36.0 % Low 37-47 [facility] Comment on above: Performed By: #### L 100.0100, L500.2500 ####[facility] [address] [place], [address] Hemoglobin (Bld) [Mass/Vol] 11.3 g/dL Low 12.0-15.0 [facility] Comment on above: Performed By: #### L 100.0100, L500.2500 ####[facility] [address] [place], [address] IG% 1.400 High 0.0-0.9 [facility] Comment on above: Result Comment: IG% - Immature Granulocytes (promyelocytes, myelocytes andmetamyelocytes) > 1% indicates that a LEFT SHIFT is Present. Performed By: #### L 100.0100, L500.2500 ####[facility] [address] [place], [address] Lymphocytes/100 WBC (Bld) 12.3 % Low 19-41 [facility] Comment on above: Performed By: #### L 100.0100, L500.2500 ####[facility] [address] [place], [address] MCH (RBC) [Entitic mass] 27.0 pg Normal 27.0-32.0 [facility] Comment on above: Performed By: #### L 100.0100, L500.2500 ####[facility] [address] [place], [address] MCHC (RBC) [Mass/Vol] 31.4 g/dL Low 32-36 [facility] Comment on above: Performed By: #### L 100.0100, L500.2500 ####[facility] [address] [place], [address] MCV (RBC) [Entitic vol] 86.1 fL Normal 81-99 [facility] Comment on above: Performed By: #### L 100.0100, L500.2500 ####[facility] [address] [place], [address] Monocytes/100 WBC (Bld) 12.6 % High 0-10 [facility] Comment on above: Performed By: #### L 100.0100, L500.2500 ####[facility] [address] [place], [address] Neutrophils/100 WBC (Bld) 73.3 % High 47-70 [facility] Comment on above: Performed By: #### L 100.0100, L500.2500 ####[facility] [address] [place], [address] Nucleated RBC (Bld) [#/Vol] 0 10*3/uL Normal 0-5 [facility] Comment on above: Performed By: #### L 100.0100, L500.2500 ####[facility] [address] [place], [address] Platelet mean volume (Bld) [Entitic vol] 9.6 fL Normal 6.2-12.0 [facility] Comment on above: Performed By: #### L 100.0100, L500.2500 ####[facility] [address] [place], [address] Platelets (Bld) [#/Vol] 148 10*3/uL Low 150-450 [facility] Comment on above: Performed By: #### L 100.0100, L500.2500 ####[facility] [address] [place], [address] RBC (Bld) [#/Vol] 4.18 10*6/uL Low 4.2-5.4 [facility] Comment on above: Performed By: #### L 100.0100, L500.2500 ####[facility] [address] [place], [address] RDW SD 47.4 fl High 35.1-43.9 [facility] Comment on above: Performed By: #### L 100.0100, L500.2500 ####[facility] [address] [place], [address] WBC (Bld) [#/Vol] 5.7 10*3/uL Normal 4.4-11.0 [facility] Comment on above: Performed By: #### L 100.0100, L500.2500 ####[facility] [address] [place], [address] Vancomycin, Trough Levelon 0 05-08-2024 VANCO, TROUGH 19.5 ug/mL High 5.0-15.0 [facility] Comment on above: Order Comment: Comme nts: Trough to be drawn 30 mins prior to scheduled [id number] Result Comment: VANC OMYCIN STANDARED DRUG THERAPY TROUGH LEVEL: 5.0 - 15.0 mg/LVANCOMYCIN HIGH INTENSITY THERAPY TROUGH LEVEL: 15.0 - 20.0 mg/LHigh Intensity therapy recommended for serious lifethreatening infections include:- Hizdsajhbj-Ricluddkugrh-Ugpoctlvx (Ventilator/Healtcare Associated)-SepsisPLEASE CONTACT PHARMACY SERVICES (#5298) FOR INTERPRETATIONOF RESULTS. Performed By: #### L 501.8820 ####[facility] [address] [place], [address] Basic Metabolic Profile (BMP )on 05-07-2024 BUN/CRE 14.8 RATIO Normal 10-20 [facility] Comment on above: Performed By: #### L 500.2500 ####[facility] [address] [place], [address] CA,Total 8.9 mg/dL Normal 8.5-10.1 [facility] Comment on above: Performed By: #### L 500.2500 ####[facility] [address] [place], [address] Chloride [Moles/Vol] 105 mmol/L Normal 98-107 [facility] Comment on above: Performed By: #### L 500.2500 ####[facility] [address] [place], [address] CO2 [Moles/Vol] 25.0 mmol/L Normal 21.0-32.0 [facility] Comment on above: Performed By: #### L 500.2500 ####[facility] [address] [place] [id number] Creatinine [Mass/Vol] 0.81 mg/dL Normal 0.55-1.02 [facility] Comment on above: Result Comment: The validity of the calculated GFR GFRAA in patients over70 years has not been determined. Clinical correlation isessential. Performed By: #### L 500.2500 ####[facility] [address] [place] [address] ECRCL 150.66 ml/min Normal [facility] Comment on above: Performed By: #### L 500.2500 ####[facility] [address] [place], [address] EST GFR - AA 94 mL/min Normal >60 [facility] Comment on above: Result Comment: Afri can [place] GFR Calc Performed By: #### L 500.2500 ####[facility] [address] [place] [id number] GAP 5 Normal 5-15 [facility] Comment on above: Performed By: #### L 500.2500 ####[facility] [address] [place], [address] GFR/1.73 sq M.predicted among non-blacks MDRD (S/P/Bld) [Vol rate/Area] 78 mL/min/{1.73_m2} Normal >60 [facility] Comment on above: Result Comment: Non- GFR Calc Performed By: #### L 500.2500 ####[facility] [address] [place], [address] Glucose [Mass/Vol] 111 mg/dL High 74-106 [facility] Comment on above: Result Comment: Fast ing Glucose result from 100 to 125 mg/dLsuggests IMPAIRED HOMEOSTASIS per A.D.A. criteria. Performed By: #### L 500.2500 ####[facility] [address] [place], [address] Potassium [Moles/Vol] 3.8 mmol/L Normal 3.5-5.1 [facility] Comment on above: Performed By: #### L 500.2500 ####[facility] [address] [place], [address] Sodium [Moles/Vol] 135 mmol/L Low 136-145 [facility] Comment on above: Performed By: #### L 500.2500 ####[facility] [address] [place], [address] Urea nitrogen [Mass/Vol] 12 mg/dL Normal 7-18 [facility] Comment on above: Performed By: #### L 500.2500 ####[facility] [address] [place], [address] Vancomycin, Trough Levelon 0 - VANCO, TROUGH 16.6 ug/mL High 5.0-15.0 [facility] Comment on above: Order Comment: 0900 Result Comment: VANC OMYCIN STANDARED DRUG THERAPY TROUGH LEVEL: 5.0 - 15.0 mg/LVANCOMYCIN HIGH INTENSITY THERAPY TROUGH LEVEL: 15.0 - 20.0 mg/LHigh Intensity therapy recommended for serious lifethreatening infections include:- Ojbcbrkdwg-Lxqmxueppxyx-Jgrwwksip (Ventilator/Healtcare Associated)-SepsisPLEASE CONTACT PHARMACY SERVICES (#6688) FOR INTERPRETATIONOF RESULTS. Performed By: #### L 501.8820 ####[facility] [address] [place], [address] Basic Metabolic Profile (BMP )on 05-06-2024 BUN/CRE 13.9 RATIO Normal 10-20 [facility] Comment on above: Performed By: #### L 100.0100, L500.2500 ####[facility] [address] [place], [address] CA,Total 8.9 mg/dL Normal 8.5-10.1 [facility] Comment on above: Performed By: #### L 100.0100, L500.2500 ####[facility] [address] [place], [address] Chloride [Moles/Vol] 105 mmol/L Normal 98-107 [facility] Comment on above: Performed By: #### L 100.0100, L500.2500 ####[facility] [address] [place], [address] CO2 [Moles/Vol] 22.0 mmol/L Normal 21.0-32.0 [facility] Comment on above: Performed By: #### L 100.0100, L500.2500 ####[facility] [address] [place], [address] Creatinine [Mass/Vol] 0.79 mg/dL Normal 0.55-1.02 [facility] Comment on above: Result Comment: The validity of the calculated GFR GFRAA in patients over70 years has not been determined. Clinical correlation isessential. Performed By: #### L 100.0100, L500.2500 ####[facility] [address] [place], [address] ECRCL 154.42 ml/min Normal [facility] Comment on above: Performed By: #### L 100.0100, L500.2500 ####[facility] [address] [place], [address] EST GFR - AA 97 mL/min Normal >60 [facility] Comment on above: Result Comment: Afri can [place] GFR Calc Performed By: #### L 100.0100, L500.2500 ####[facility] [address] [place], [address] GAP 10 Normal 5-15 [facility] Comment on above: Performed By: #### L 100.0100, L500.2500 ####[facility] [address] [place], [address] GFR/1.73 sq M.predicted among non-blacks MDRD (S/P/Bld) [Vol rate/Area] 80 mL/min/{1.73_m2} Normal >60 [facility] Comment on above: Result Comment: Non- GFR Calc Performed By: #### L 100.0100, L500.2500 ####[facility] [address] [place], [address] Glucose [Mass/Vol] 112 mg/dL High 74-106 [facility] Comment on above: Result Comment: Fast ing Glucose result from 100 to 125 mg/dLsuggests IMPAIRED HOMEOSTASIS per A.D.A. criteria. Performed By: #### L 100.0100, L500.2500 ####[facility] [address] [place], [address] Potassium [Moles/Vol] 3.8 mmol/L Normal 3.5-5.1 [facility] Comment on above: Performed By: #### L 100.0100, L500.2500 ####[facility] [address] [place], [address] Sodium [Moles/Vol] 137 mmol/L Normal 136-145 [facility] Comment on above: Performed By: #### L 100.0100, L500.2500 ####[facility] [address] [place], [address] Urea nitrogen [Mass/Vol] 11 mg/dL Normal 7-18 [facility] Comment on above: Performed By: #### L 100.0100, L500.2500 ####[facility] [address] [place], [address] CBC W/Diff, Automatedon 06-0 7-2023 Absolute Lymph 0.58 X10 3/uL Low 0.83-4.51 [facility] Comment on above: Performed By: #### L 100.0100, L500.2500 ####[facility] [address] [place], [address] Absolute Neut 3.6 X10 3/uL Normal 2.0-7.7 [facility] Comment on above: Performed By: #### L 100.0100, L500.2500 ####[facility] [address] [place], [address] Basophils/100 WBC (Bld) 0.2 % Normal 0-1 [facility] Comment on above: Performed By: #### L 100.0100, L500.2500 ####[facility] [address] [place], [address] Eosinophils/100 WBC (Bld) 0.2 % Normal 0-5 [facility] Comment on above: Performed By: #### L 100.0100, L500.2500 ####[facility] [address] [place], [address] Erythrocyte distribution width (RBC) [Ratio] 15.3 % High 11.6-14.6 [facility] Comment on above: Performed By: #### L 100.0100, L500.2500 ####[facility] [address] [place], [address] Hematocrit (Bld) [Volume fraction] 36.1 % Low 37-47 [facility] Comment on above: Performed By: #### L 100.0100, L500.2500 ####[facility] [address] [place], [address] Hemoglobin (Bld) [Mass/Vol] 11.2 g/dL Low 12.0-15.0 [facility] Comment on above: Performed By: #### L 100.0100, L500.2500 ####[facility] [address] [place], [address] IG% 1.900 High 0.0-0.9 [facility] Comment on above: Result Comment: IG% - Immature Granulocytes (promyelocytes, myelocytes andmetamyelocytes) > 1% indicates that a LEFT SHIFT is Present. Performed By: #### L 100.0100, L500.2500 ####[facility] [address] [place], [address] Lymphocytes/100 WBC (Bld) 12.3 % Low 19-41 [facility] Comment on above: Performed By: #### L 100.0100, L500.2500 ####[facility] [address] [place], [address] MCH (RBC) [Entitic mass] 26.7 pg Low 27.0-32.0 [facility] Comment on above: Performed By: #### L 100.0100, L500.2500 ####[facility] [address] [place], [address] MCHC (RBC) [Mass/Vol] 31.0 g/dL Low 32-36 [facility] Comment on above: Performed By: #### L 100.0100, L500.2500 ####[facility] [address] [place], [address] MCV (RBC) [Entitic vol] 86.2 fL Normal 81-99 [facility] Comment on above: Performed By: #### L 100.0100, L500.2500 ####[facility] [address] [place], [address] Monocytes/100 WBC (Bld) 8.7 % Normal 0-10 [facility] Comment on above: Performed By: #### L 100.0100, L500.2500 ####[facility] [address] [place], [address] Neutrophils/100 WBC (Bld) 76.7 % High 47-70 [facility] Comment on above: Performed By: #### L 100.0100, L500.2500 ####[facility] [address] [place], [address] Nucleated RBC (Bld) [#/Vol] 0 10*3/uL Normal 0-5 [facility] Comment on above: Performed By: #### L 100.0100, L500.2500 ####[facility] [address] [place], [address] Platelet mean volume (Bld) [Entitic vol] 9.4 fL Normal 6.2-12.0 [facility] Comment on above: Performed By: #### L 100.0100, L500.2500 ####[facility] [address] [place], [address] Platelets (Bld) [#/Vol] 131 10*3/uL Low 150-450 [facility] Comment on above: Performed By: #### L 100.0100, L500.2500 ####[facility] [address] [place], [address] RBC (Bld) [#/Vol] 4.19 10*6/uL Low 4.2-5.4 [facility] Comment on above: Performed By: #### L 100.0100, L500.2500 ####[facility] [address] [place], [address] RDW SD 48.4 fl High 35.1-43.9 [facility] Comment on above: Performed By: #### L 100.0100, L500.2500 ####[facility] [address] [place], [address] WBC (Bld) [#/Vol] 4.7 10*3/uL Normal 4.4-11.0 [facility] Comment on above: Performed By: #### L 100.0100, L500.2500 ####[facility] [address] [place], [address] Extremity Lower WITH Contras ton 05-06-2024 Extremity Lower WITH Contrast Normal [facility] Vancomycin, Random Levelon 0 05-06-2024 VANCO, RANDOM 14.0 ug/mL Normal 0.0-15.0 [facility] Comment on above: Result Comment: VANC OMYCIN STANDARD DRUG THERAPY: CRITICAL VALUE IS > 15.0 mg/LVANCOMYCIN HIGH INTENSITY THERAPY: CRITICAL VALUE IS > 20.0 mg/LPLEASE CONTACT PHARMACY SERVICES (#3177) FOR INTERPRETATIONOF RESULTS. THIS RESULT DOES NOT REPRESENT A PEAK OR TROUGHLEVEL FOR THIS DRUG. Performed By: #### L 501.8850 ####[facility] [address] [place], [address] CBC W/Diff, Automatedon 06-0 Absolute Lymph 0.39 X10 3/uL Low 0.83-4.51 [facility] Comment on above: Performed By: #### L 501.5200, L100.0100, L500.4050, L501.2300 ####[facility] [address] [place], [address] Absolute Neut 10.3 X10 3/uL High 2.0-7.7 [facility] Comment on above: Performed By: #### L 501.5200, L100.0100, L500.4050, L501.2300 ####[facility] [address] [place], [address] Basophils/100 WBC (Bld) 0.1 % Normal 0-1 [facility] Comment on above: Performed By: #### L 501.5200, L100.0100, L500.4050, L501.2300 ####[facility] [address] [place], [address] Eosinophils/100 WBC (Bld) 0.0 % Normal 0-5 [facility] Comment on above: Performed By: #### L 501.5200, L100.0100, L500.4050, L501.2300 ####[facility] [address] [place], [address] Erythrocyte distribution width (RBC) [Ratio] 15.3 % High 11.6-14.6 [facility] Comment on above: Performed By: #### L 501.5200, L100.0100, L500.4050, L501.2300 ####[facility] [address] [place], [address] Hematocrit (Bld) [Volume fraction] 38.2 % Normal 37-47 [facility] Comment on above: Performed By: #### L 501.5200, L100.0100, L500.4050, L501.2300 ####[facility] [address] [place], [address] Hemoglobin (Bld) [Mass/Vol] 12.1 g/dL Normal 12.0-15.0 [facility] Comment on above: Performed By: #### L 501.5200, L100.0100, L500.4050, L501.2300 ####[facility] [address] [place], [address] IG% 0.800 Normal 0.0-0.9 [facility] Comment on above: Result Comment: IG% - Immature Granulocytes (promyelocytes, myelocytes andmetamyelocytes) > 1% indicates that a LEFT SHIFT is Present. Performed By: #### L 501.5200, L100.0100, L500.4050, L501.2300 ####[facility] [address] [place], [address] Lymphocytes/100 WBC (Bld) 3.6 % Low 19-41 [facility] Comment on above: Performed By: #### L 501.5200, L100.0100, L500.4050, L501.2300 ####[facility] [address] [place], [address] MCH (RBC) [Entitic mass] 26.9 pg Low 27.0-32.0 [facility] Comment on above: Performed By: #### L 501.5200, L100.0100, L500.4050, L501.2300 ####[facility] [address] [place], [address] MCHC (RBC) [Mass/Vol] 31.7 g/dL Low 32-36 [facility] Comment on above: Performed By: #### L 501.5200, L100.0100, L500.4050, L501.2300 ####[facility] [address] [place], [address] MCV (RBC) [Entitic vol] 84.9 fL Normal 81-99 [facility] Comment on above: Performed By: #### L 501.5200, L100.0100, L500.4050, L501.2300 ####[facility] [address] [place], [address] Monocytes/100 WBC (Bld) 1.7 % Normal 0-10 [facility] Comment on above: Performed By: #### L 501.5200, L100.0100, L500.4050, L501.2300 ####[facility] [address] [place], [address] Neutrophils/100 WBC (Bld) 93.8 % High 47-70 [facility] Comment on above: Performed By: #### L 501.5200, L100.0100, L500.4050, L501.2300 ####[facility] [address] [place], [address] Nucleated RBC (Bld) [#/Vol] 0 10*3/uL Normal 0-5 [facility] Comment on above: Performed By: #### L 501.5200, L100.0100, L500.4050, L501.2300 ####[facility] [address] [place], [address] Platelet mean volume (Bld) [Entitic vol] 9.4 fL Normal 6.2-12.0 [facility] Comment on above: Performed By: #### L 501.5200, L100.0100, L500.4050, L501.2300 ####[facility] [address] [place], [address] Platelets (Bld) [#/Vol] 146 10*3/uL Low 150-450 [facility] Comment on above: Performed By: #### L 501.5200, L100.0100, L500.4050, L501.2300 ####[facility] [address] [place], [address] RBC (Bld) [#/Vol] 4.50 10*6/uL Normal 4.2-5.4 [facility] Comment on above: Performed By: #### L 501.5200, L100.0100, L500.4050, L501.2300 ####[facility] [address] [place], [address] RDW SD 47.5 fl High 35.1-43.9 [facility] Comment on above: Performed By: #### L 501.5200, L100.0100, L500.4050, L501.2300 ####[facility] [address] [place], [address] WBC (Bld) [#/Vol] 10.9 10*3/uL Normal 4.4-11.0 [facility] Comment on above: Performed By: #### L 501.5200, L100.0100, L500.4050, L501.2300 ####[facility] [address] [place], [address] CDIFF (PCR)on 05-05-2024 CDIFF Normal [facility] Comment on above: Performed By: #### M 100.637, M100.0605, M100.6796 ####[facility] [address] [place], [address] Comprehensive Metabolic Prof ilon 05-05-2024 Albumin [Mass/Vol] 2.9 g/dL Low 3.2-5.0 [facility] Comment on above: Performed By: #### L 501.5200, L100.0100, L500.4050, L501.2300 ####[facility] [address] [place], [address] Albumin/Globulin [Mass ratio] 0.7 {ratio} Low 0.9-2.4 [facility] Comment on above: Performed By: #### L 501.5200, L100.0100, L500.4050, L501.2300 ####[facility] [address] [place], [address] ALK P 79 U/L Normal 45-117 [facility] Comment on above: Performed By: #### L 501.5200, L100.0100, L500.4050, L501.2300 ####[facility] [address] [place], [address] ALT [Catalytic activity/Vol] 36 U/L Normal 13-56 [facility] Comment on above: Performed By: #### L 501.5200, L100.0100, L500.4050, L501.2300 ####[facility] [address] [place], [address] AST [Catalytic activity/Vol] 32 U/L Normal 15-37 [facility] Comment on above: Performed By: #### L 501.5200, L100.0100, L500.4050, L501.2300 ####[facility] [address] [place], [address] Bilirubin [Mass/Vol] 0.90 mg/dL Normal 0.20-1.00 [facility] Comment on above: Result Comment: For patients on eltrombopag therapy, use of [employer] [place] TBIL is not recommended. Performed By: #### L 501.5200, L100.0100, L500.4050, L501.2300 ####[facility] [address] [place], [address] BUN/CRE 15.7 RATIO Normal 10-20 [facility] Comment on above: Performed By: #### L 501.5200, L100.0100, L500.4050, L501.2300 ####[facility] [address] [place], [address] CA,Total 8.7 mg/dL Normal 8.5-10.1 [facility] Comment on above: Performed By: #### L 501.5200, L100.0100, L500.4050, L501.2300 ####[facility] [address] [place], [address] Chloride [Moles/Vol] 105 mmol/L Normal 98-107 [facility] Comment on above: Performed By: #### L 501.5200, L100.0100, L500.4050, L501.2300 ####[facility] [address] [place], [address] CO2 [Moles/Vol] 22.0 mmol/L Normal 21.0-32.0 [facility] Comment on above: Performed By: #### L 501.5200, L100.0100, L500.4050, L501.2300 ####[facility] [address] [place], [address] Creatinine [Mass/Vol] 0.96 mg/dL Normal 0.55-1.02 [facility] Comment on above: Result Comment: The validity of the calculated GFR GFRAA in patients over70 years has not been determined. Clinical correlation isessential. Performed By: #### L 501.5200, L100.0100, L500.4050, L501.2300 ####[facility] [address] [place], [address] ECRCL 127.08 ml/min Normal [facility] Comment on above: Performed By: #### L 501.5200, L100.0100, L500.4050, L501.2300 ####[facility] [address] [place], [address] EST GFR - AA 78 mL/min Normal >60 [facility] Comment on above: Result Comment: Afri can [place] GFR Calc Performed By: #### L 501.5200, L100.0100, L500.4050, L501.2300 ####[facility] [address] [place], [address] GAP 9 Normal 5-15 [facility] Comment on above: Performed By: #### L 501.5200, L100.0100, L500.4050, L501.2300 ####[facility] [address] [place], [address] GFR/1.73 sq M.predicted among non-blacks MDRD (S/P/Bld) [Vol rate/Area] 64 mL/min/{1.73_m2} Normal >60 [facility] Comment on above: Result Comment: Non- GFR Calc Performed By: #### L 501.5200, L100.0100, L500.4050, L501.2300 ####[facility] [address] [place], [address] Globulin (S) [Mass/Vol] 4.0 g/dL Normal 2.2-4.2 [facility] Comment on above: Performed By: #### L 501.5200, L100.0100, L500.4050, L501.2300 ####[facility] [address] [place], [address] Glucose [Mass/Vol] 96 mg/dL Normal 74-106 [facility] Comment on above: Performed By: #### L 501.5200, L100.0100, L500.4050, L501.2300 ####[facility] [address] [place], [address] Potassium [Moles/Vol] 3.8 mmol/L Normal 3.5-5.1 [facility] Comment on above: Performed By: #### L 501.5200, L100.0100, L500.4050, L501.2300 ####[facility] [address] [place], [address] Sodium [Moles/Vol] 136 mmol/L Normal 136-145 [facility] Comment on above: Performed By: #### L 501.5200, L100.0100, L500.4050, L501.2300 ####[facility] [address] [place], [address] T PROT 6.9 g/dL Normal 6.4-8.2 [facility] Comment on above: Performed By: #### L 501.5200, L100.0100, L500.4050, L501.2300 ####[facility] [address] [place], [address] Urea nitrogen [Mass/Vol] 15 mg/dL Normal 7-18 [facility] Comment on above: Performed By: #### L 501.5200, L100.0100, L500.4050, L501.2300 ####[facility] [address] [place], [address] Consultation - Infectious Dx on 05-05-2024 Consultation - Infectious Dx Normal [facility] ENTERIC PATHOGEN PANEL STOOL on 05-05-2024 EP PANEL Normal [facility] Comment on above: Performed By: #### M 100.637, M100.0605, M100.6796 ####[facility] [address] [place], [address] Magnesiumon 05-05-2024 Magnesium [Mass/Vol] 1.6 mg/dL Normal 1.6-2.6 [facility] Comment on above: Performed By: #### L 501.5200, L100.0100, L500.4050, L501.2300 ####[facility] [address] [place], [address] Phosphoruson 05-05-2024 Phosphate [Mass/Vol] 3.0 mg/dL Normal 2.5-4.9 [facility] Comment on above: Performed By: #### L 501.5200, L100.0100, L500.4050, L501.2300 ####[facility] [address] [place], [address] Procedure Reporton Procedure Report Normal [facility] Stool Lactoferrin/WBCon WBCST Is the patient recei ving laxatives? N New/unexplained onset of 3 or more stools in past 24 hrs? N prior to this stool, last bm was 6/4 Normal Reference Range = Negative Fecal WBC Lactoferrin Negative: No Fecal WBC Lactoferrin present Normal [facility] Comment on above: Performed By: #### M 100.637, M100.0605, M100.6796 ####[facility] [address] [place], [address] Vancomycin, Trough Levelon 0 6-06-2024 VANCO, TROUGH 23.7 ug/mL High 5.0-15.0 [facility] Comment on above: Order Comment: Comme nts: Trough to be drawn 30 mins prior to scheduled [id number] Result Comment: VANC OMYCIN STANDARED DRUG THERAPY TROUGH LEVEL: 5.0 - 15.0 mg/LVANCOMYCIN HIGH INTENSITY THERAPY TROUGH LEVEL: 15.0 - 20.0 mg/LHigh Intensity therapy recommended for serious lifethreatening infections include:- Dqnvlcspdm-Bcnnbgodzfwj-Qmpzkdsva (Ventilator/Healtcare Associated)-SepsisPLEASE CONTACT PHARMACY SERVICES (#9171) FOR INTERPRETATIONOF RESULTS. Performed By: #### L 501.8820 ####[facility] [address] [place], [address] Basic Metabolic Profile (BMP )on 05-04-2024 BUN/CRE 18.2 RATIO Normal 10-20 [facility] Comment on above: Performed By: #### L 100.0100, L503.6005, L500.2500 ####[facility] [address] [place], [address] CA,Total 9.3 mg/dL Normal 8.5-10.1 [facility] Comment on above: Performed By: #### L 100.0100, L503.6005, L500.2500 ####[facility] [address] [place], [address] Chloride [Moles/Vol] 100 mmol/L Normal 98-107 [facility] Comment on above: Performed By: #### L 100.0100, L503.6005, L500.2500 ####[facility] [address] [place], [address] CO2 [Moles/Vol] 26.0 mmol/L Normal 21.0-32.0 [facility] Comment on above: Performed By: #### L 100.0100, L503.6005, L500.2500 ####[facility] [address] [place], [address] Creatinine [Mass/Vol] 0.99 mg/dL Normal 0.55-1.02 [facility] Comment on above: Result Comment: The validity of the calculated GFR GFRAA in patients over70 years has not been determined. Clinical correlation isessential. Performed By: #### L 100.0100, L503.6005, L500.2500 ####[facility] [address] [place], [address] ECRCL 124.61 ml/min Normal [facility] Comment on above: Performed By: #### L 100.0100, L503.6005, L500.2500 ####[facility] [address] [place], [address] EST GFR - AA 75 mL/min Normal >60 [facility] Comment on above: Result Comment: Afri can [place] GFR Calc Performed By: #### L 100.0100, L503.6005, L500.2500 ####[facility] [address] [place], [address] GAP 7 Normal 5-15 [facility] Comment on above: Performed By: #### L 100.0100, L503.6005, L500.2500 ####[facility] [address] [place], [address] GFR/1.73 sq M.predicted among non-blacks MDRD (S/P/Bld) [Vol rate/Area] 62 mL/min/{1.73_m2} Normal >60 [facility] Comment on above: Result Comment: Non- GFR Calc Performed By: #### L 100.0100, L503.6005, L500.2500 ####[facility] [address] [place], [address] Glucose [Mass/Vol] 116 mg/dL High 74-106 [facility] Comment on above: Result Comment: Fast ing Glucose result from 100 to 125 mg/dLsuggests IMPAIRED HOMEOSTASIS per A.D.A. criteria. Performed By: #### L 100.0100, L503.6005, L500.2500 ####[facility] [address] [place], [address] Potassium [Moles/Vol] 4.5 mmol/L Normal 3.5-5.1 [facility] Comment on above: Performed By: #### L 100.0100, L503.6005, L500.2500 ####[facility] [address] [place], [address] Sodium [Moles/Vol] 133 mmol/L Low 136-145 [facility] Comment on above: Performed By: #### L 100.0100, L503.6005, L500.2500 ####[facility] [address] [place], [address] Urea nitrogen [Mass/Vol] 18 mg/dL Normal 7-18 [facility] Comment on above: Performed By: #### L 100.0100, L503.6005, L500.2500 ####[facility] [address] [place], [address] CBC W/Diff, Automatedon 06-0 5-2024 Absolute Lymph 0.29 X10 3/uL Low 0.83-4.51 [facility] Comment on above: Performed By: #### L 100.0100, L503.6005, L500.2500 ####[facility] [address] [place], [address] Absolute Neut 18.2 X10 3/uL High 2.0-7.7 [facility] Comment on above: Performed By: #### L 100.0100, L503.6005, L500.2500 ####[facility] [address] [place], [address] Basophils/100 WBC (Bld) 0.2 % Normal 0-1 [facility] Comment on above: Performed By: #### L 100.0100, L503.6005, L500.2500 ####[facility] [address] [place], [address] Eosinophils/100 WBC (Bld) 0.0 % Normal 0-5 [facility] Comment on above: Performed By: #### L 100.0100, L503.6005, L500.2500 ####[facility] [address] [place], [address] Erythrocyte distribution width (RBC) [Ratio] 15.0 % High 11.6-14.6 [facility] Comment on above: Performed By: #### L 100.0100, L503.6005, L500.2500 ####[facility] [address] [place], [address] Hematocrit (Bld) [Volume fraction] 39.9 % Normal 37-47 [facility] Comment on above: Performed By: #### L 100.0100, L503.6005, L500.2500 ####[facility] [address] [place], [address] Hemoglobin (Bld) [Mass/Vol] 12.7 g/dL Normal 12.0-15.0 [facility] Comment on above: Performed By: #### L 100.0100, L503.6005, L500.2500 ####[facility] [address] [place], [address] IG% 0.800 Normal 0.0-0.9 [facility] Comment on above: Result Comment: IG% - Immature Granulocytes (promyelocytes, myelocytes andmetamyelocytes) > 1% indicates that a LEFT SHIFT is Present. Performed By: #### L 100.0100, L503.6005, L500.2500 ####[facility] [address] [place], [address] Lymphocytes/100 WBC (Bld) 1.5 % Low 19-41 [facility] Comment on above: Performed By: #### L 100.0100, L503.6005, L500.2500 ####[facility] [address] [place], [address] MCH (RBC) [Entitic mass] 27.3 pg Normal 27.0-32.0 [facility] Comment on above: Performed By: #### L 100.0100, L503.6005, L500.2500 ####[facility] [address] [place], [address] MCHC (RBC) [Mass/Vol] 31.8 g/dL Low 32-36 [facility] Comment on above: Performed By: #### L 100.0100, L503.6005, L500.2500 ####[facility] [address] [place], [address] MCV (RBC) [Entitic vol] 85.8 fL Normal 81-99 [facility] Comment on above: Performed By: #### L 100.0100, L503.6005, L500.2500 ####[facility] [address] [place], [address] Monocytes/100 WBC (Bld) 2.8 % Normal 0-10 [facility] Comment on above: Performed By: #### L 100.0100, L503.6005, L500.2500 ####[facility] [address] [place], [address] Neutrophils/100 WBC (Bld) 94.7 % High 47-70 [facility] Comment on above: Performed By: #### L 100.0100, L503.6005, L500.2500 ####[facility] [address] [place], [address] Nucleated RBC (Bld) [#/Vol] 0 10*3/uL Normal 0-5 [facility] Comment on above: Performed By: #### L 100.0100, L503.6005, L500.2500 ####[facility] [address] [place], [address] Platelet mean volume (Bld) [Entitic vol] 10.0 fL Normal 6.2-12.0 [facility] Comment on above: Performed By: #### L 100.0100, L503.6005, L500.2500 ####[facility] [address] [place], [address] Platelets (Bld) [#/Vol] 160 10*3/uL Normal 150-450 [facility] Comment on above: Performed By: #### L 100.0100, L503.6005, L500.2500 ####[facility] [address] [place], [address] RBC (Bld) [#/Vol] 4.65 10*6/uL Normal 4.2-5.4 [facility] Comment on above: Performed By: #### L 100.0100, L503.6005, L500.2500 ####[facility] [address] [place], [address] RDW SD 46.8 fl High 35.1-43.9 [facility] Comment on above: Performed By: #### L 100.0100, L503.6005, L500.2500 ####[facility] [address] [place], [address] WBC (Bld) [#/Vol] 19.2 10*3/uL High 4.4-11.0 [facility] Comment on above: Performed By: #### L 100.0100, L503.6005, L500.2500 ####[facility] [address] [place], [address] Emergency Department Summary on 05-04-2024 Emergency Department Summary Normal [facility] H AND P Exam - Hospitaliston 05-04-2024 H&P Exam - Hospitalist Normal [facility] Hemoglobin A1con 05-04-2024 HbA1c (Bld) [Mass fraction] 5.8 % High 3.8-5.6 [facility] Comment on above: Result Comment: Norm al < 5.7 % Prediabetic 5.7 - 6.4 % Diabetic >or= 6.5 % Please note range changes. Performed By: #### L 501.9985 ####[facility] [address] [place], [address] Lactic Acidon 05-04-2024 Lactate [Moles/Vol] 1.6 mmol/L Normal 0.4-1.9 [facility] Comment on above: Order Comment: Y Performed By: #### L 100.0100, L503.6005, L500.2500 ####[facility] [address] [place], [address] Culture, Blood (WB)on 2023 CUB R SHOULDER No growth in 5 days. Normal [facility] Comment on above: Performed By: #### L 503.6005, M200.1000, L500.4050 ####[facility] [address] [place], [address] CUB No growth in 5 days. Normal [facility] Comment on above: Performed By: #### M 200.1000 ####[facility] [address] [place], [address] Discharge Instructionon 03-30 Discharge Instruction Normal [facility] Absolute lymphocyte countOrd ered By: Rubin Hadley on 04-07-2024 Lymphocytes Auto (Unsp spec) [#/Vol] 1.06 10*3/uL 0.83-4.51 [facility] Automated lymphocyte count a s percentage of total leukocytesOrdered By: Rubin Hadley on 04-07-2024 Lymphocytes/100 WBC Auto (Unsp spec) 15.1 % 19-41 [facility] Basic Metabolic Profile (BMP )on 04-07-2024 BUN/CRE 15.7 RATIO Normal 10-20 [facility] Comment on above: Performed By: #### L 500.2500, L100.0100 ####[facility] [address] [place], [address] CA,Total 9.6 mg/dL Normal 8.5-10.1 [facility] Comment on above: Performed By: #### L 500.2500, L100.0100 ####[facility] [address] [place], [address] Chloride [Moles/Vol] 103 mmol/L Normal 98-107 [facility] Comment on above: Performed By: #### L 500.2500, L100.0100 ####[facility] [address] [place], [address] CO2 [Moles/Vol] 27.0 mmol/L Normal 21.0-32.0 [facility] Comment on above: Performed By: #### L 500.2500, L100.0100 ####[facility] [address] [place], [address] Creatinine [Mass/Vol] 0.89 mg/dL Normal 0.55-1.02 [facility] Comment on above: Result Comment: The validity of the calculated GFR GFRAA in patients over70 years has not been determined. Clinical correlation isessential. Performed By: #### L 500.2500, L100.0100 ####[facility] [address] [place], [address] ECRCL 139.37 ml/min Normal [facility] Comment on above: Performed By: #### L 500.2500, L100.0100 ####[facility] [address] [place], [address] EST GFR - AA 84 mL/min Normal >60 [facility] Comment on above: Result Comment: Afri can [place] GFR Calc Performed By: #### L 500.2500, L100.0100 ####[facility] [address] [place], [address] GAP 5 Normal 5-15 [facility] Comment on above: Performed By: #### L 500.2500, L100.0100 ####[facility] [address] [place], [address] GFR/1.73 sq M.predicted among non-blacks MDRD (S/P/Bld) [Vol rate/Area] 69 mL/min/{1.73_m2} Normal >60 [facility] Comment on above: Result Comment: Non- GFR Calc Performed By: #### L 500.2500, L100.0100 ####[facility] [address] [place], [address] Glucose [Mass/Vol] 115 mg/dL High 74-106 [facility] Comment on above: Result Comment: Fast ing Glucose result from 100 to 125 mg/dLsuggests IMPAIRED HOMEOSTASIS per A.D.A. criteria. Performed By: #### L 500.2500, L100.0100 ####[facility] [address] [place], [address] Potassium [Moles/Vol] 4.2 mmol/L Normal 3.5-5.1 [facility] Comment on above: Performed By: #### L 500.2500, L100.0100 ####[facility] [address] [place], [address] Sodium [Moles/Vol] 135 mmol/L Low 136-145 [facility] Comment on above: Performed By: #### L 500.2500, L100.0100 ####[facility] [address] [place], [address] Urea nitrogen [Mass/Vol] 14 mg/dL Normal 7-18 [facility] Comment on above: Performed By: #### L 500.2500, L100.0100 ####[facility] [address] [place], [address] Basophil percentageOrdered B y: Rubin Hadley on 04-07-2024 Basophils/100 WBC (Bld) 0.4 % 0-1 [facility] Chloride [Moles/Vol] 103 mmol/L 98-107 [facility] Eosinophils/100 WBC (Bld) 0.0 % 0-5 [facility] Glucose [Mass/Vol] 115 mg/dL 74-106 [facility] Comment on above: Fasting Glucose resu lt from 100 to 125 mg/dL suggests IMPAIRED HOMEOSTASIS per A.D.A. criteria. Hemoglobin (Bld) [Mass/Vol] 12.7 g/dL 12.0-15.0 [facility] Monocytes/100 WBC (Bld) 11.4 % 0-10 [facility] Neutrophils (Bld) [#/Vol] 5.0 10*3/uL 2.0-7.7 [facility] Neutrophils/100 WBC (Bld) 71.7 % 47-70 [facility] Potassium [Moles/Vol] 4.2 mmol/L 3.5-5.1 [facility] Sodium [Moles/Vol] 135 mmol/L 136-145 [facility] WBC (Bld) [#/Vol] 7.0 10*3/uL 4.4-11.0 [facility] CBC W/Diff, Automatedon Absolute Lymph 1.06 X10 3/uL Normal 0.83-4.51 [facility] Comment on above: Performed By: #### L 500.2500, L100.0100 ####[facility] [address] [place], [address] Absolute Neut 5.0 X10 3/uL Normal 2.0-7.7 [facility] Comment on above: Performed By: #### L 500.2500, L100.0100 ####[facility] [address] [place], [address] Basophils/100 WBC (Bld) 0.4 % Normal 0-1 [facility] Comment on above: Performed By: #### L 500.2500, L100.0100 ####[facility] [address] [place], [address] Eosinophils/100 WBC (Bld) 0.0 % Normal 0-5 [facility] Comment on above: Performed By: #### L 500.2500, L100.0100 ####[facility] [address] [place], [address] Erythrocyte distribution width (RBC) [Ratio] 15.1 % High 11.6-14.6 [facility] Comment on above: Performed By: #### L 500.2500, L100.0100 ####[facility] [address] [place], [address] Hematocrit (Bld) [Volume fraction] 40.7 % Normal 37-47 [facility] Comment on above: Performed By: #### L 500.2500, L100.0100 ####[facility] [address] [place], [address] Hemoglobin (Bld) [Mass/Vol] 12.7 g/dL Normal 12.0-15.0 [facility] Comment on above: Performed By: #### L 500.2500, L100.0100 ####[facility] [address] [place], [address] IG% 1.400 High 0.0-0.9 [facility] Comment on above: Result Comment: IG% - Immature Granulocytes (promyelocytes, myelocytes andmetamyelocytes) > 1% indicates that a LEFT SHIFT is Present. Performed By: #### L 500.2500, L100.0100 ####[facility] [address] [place], [address] Lymphocytes/100 WBC (Bld) 15.1 % Low 19-41 [facility] Comment on above: Performed By: #### L 500.2500, L100.0100 ####[facility] [address] [place], [address] MCH (RBC) [Entitic mass] 26.6 pg Low 27.0-32.0 [facility] Comment on above: Performed By: #### L 500.2500, L100.0100 ####[facility] [address] [place], [address] MCHC (RBC) [Mass/Vol] 31.2 g/dL Low 32-36 [facility] Comment on above: Performed By: #### L 500.2500, L100.0100 ####[facility] [address] [place], [address] MCV (RBC) [Entitic vol] 85.3 fL Normal 81-99 [facility] Comment on above: Performed By: #### L 500.2500, L100.0100 ####[facility] [address] [place], [address] Monocytes/100 WBC (Bld) 11.4 % High 0-10 [facility] Comment on above: Performed By: #### L 500.2500, L100.0100 ####[facility] [address] [place], [address] Neutrophils/100 WBC (Bld) 71.7 % High 47-70 [facility] Comment on above: Performed By: #### L 500.2500, L100.0100 ####[facility] [address] [place], [address] Nucleated RBC (Bld) [#/Vol] 0 10*3/uL Normal 0-5 [facility] Comment on above: Performed By: #### L 500.2500, L100.0100 ####[facility] [address] [place], [address] Platelet mean volume (Bld) [Entitic vol] 9.8 fL Normal 6.2-12.0 [facility] Comment on above: Performed By: #### L 500.2500, L100.0100 ####[facility] [address] [place], [address] Platelets (Bld) [#/Vol] 191 10*3/uL Normal 150-450 [facility] Comment on above: Performed By: #### L 500.2500, L100.0100 ####[facility] [address] [place], [address] RBC (Bld) [#/Vol] 4.77 10*6/uL Normal 4.2-5.4 [facility] Comment on above: Performed By: #### L 500.2500, L100.0100 ####[facility] [address] [place], [address] RDW SD 47.2 fl High 35.1-43.9 [facility] Comment on above: Performed By: #### L 500.2500, L100.0100 ####[facility] [address] [place], [address] WBC (Bld) [#/Vol] 7.0 10*3/uL Normal 4.4-11.0 [facility] Comment on above: Performed By: #### L 500.2500, L100.0100 ####[facility] [address] [place], [address] Determination of erythrocyte mean corpuscular volume (MCV)Ordered By: Rubin Hadley on 04-07-2024 MCV (RBC) [Entitic vol] 85.3 fL 81-99 [facility] Erythrocyte distribution wid th ratioOrdered By: Rubin Hadley on 04-07-2024 Erythrocyte distribution width (RBC) [Ratio] 15.1 % 11.6-14.6 [facility] Erythrocyte distribution wid th standard deviationOrdered By: Rubin Hadley on 04-07-2024 Erythrocyte distribution width (RBC) [Entitic vol] 47.2 fL 35.1-43.9 [facility] Hematocrit Auto (Bld) [Volum e fraction]Ordered By: Rubin Hadley on 04-07-2024 Hematocrit (Bld) [Volume fraction] 40.7 % 37-47 [facility] Immature granulocytes/100 WB C Auto (Bld)Ordered By: Rubin Hadley on 04-07-2024 Immature granulocytes/100 WBC (Bld) 1.400 % 0.0-0.9 [facility] Comment on above: IG% - Immature Granu locytes (promyelocytes, myelocytes and metamyelocytes) > 1% indicates that a LEFT SHIFT is Present. Laboratory - Chemistry and C hemistry - challengeOrdered By: Rubin Hadley on 04-07-2024 CO2 [Moles/Vol] 27.0 mmol/L 21.0-32.0 [facility] Urea nitrogen/Creatinine [Mass ratio] 15.7 mg/mg 10-20 [facility] Laboratory - Hematology and Cell countsOrdered By: Rubin Hadley on 04-07-2024 MCH (RBC) [Entitic mass] 26.6 pg 27.0-32.0 [facility] MCHC (RBC) [Mass/Vol] 31.2 g/dL 32-36 [facility] Nucleated RBC/100 WBC (Bld) [Ratio] 0 % 0-5 [facility] Platelet mean volume (Bld) [Entitic vol] 9.8 fL 6.2-12.0 [facility] Platelets (Bld) [#/Vol] 191 10*3/uL 150-450 [facility] M R Staph Aureus DNA by PCRo n 04-07-2024 MRSA DNA ASSAY Negative Normal Negative [facility] Comment on above: Performed By: #### L 8200.1000 ####[facility] [address] [place], [place], [address] No Panel InformationOrdered By: Rubin Hadley on 04-07-2024 Methicillin-Resist S.aureus DNA PCR Negative Negative [facility] Estimated Creatinine Clearance Calc 139.37 ml/min [facility] Estimated GFR (MDRD) Amer 84 mL/min >60 [facility] Comment on above: GFR Calc Estimated GFR (MDRD) Non-Af Amer 69 mL/min >60 [facility] Comment on above: Non- GFR Calc RBC Auto (Bld) [#/Vol]Ordere d By: Rubin Hadley on 04-07-2024 RBC (Bld) [#/Vol] 4.77 10*6/uL 4.2-5.4 [facility] Serum or plasma calcium herson urement (mass/volume)Ordered By: Rubin Hadley on 04-07-2024 Calcium [Mass/Vol] 9.6 mg/dL 8.5-10.1 [facility] Serum or plasma creatinine m easurement (mass/volume)Ordered By: Rubin Hadley on 04-07-2024 Creatinine [Mass/Vol] 0.89 mg/dL 0.55-1.02 [facility] Comment on above: The validity of the calculated GFR & GFRAA in patients over 70 years has not been determined. Clinical correlation is essential. Serum or plasma urea nitroge n measurement (mass/volume)Ordered By: Rubin Hadley on 04-07-2024 Urea nitrogen [Mass/Vol] 14 mg/dL 7-18 [facility] Thin prep Papanicolaou smear with manual screeningOrdered By: Rubin Hadley on 04-07-2024 Thin prep Papanicolaou smear with manual screening 5 5-15 [facility] Basic Metabolic Profile (BMP )on 04-06-2024 BUN/CRE 18.1 RATIO Normal 10-20 [facility] Comment on above: Performed By: #### L 100.0100, L500.2500 ####[facility] [address] [place], [address] CA,Total 9.0 mg/dL Normal 8.5-10.1 [facility] Comment on above: Performed By: #### L 100.0100, L500.2500 ####[facility] [address] [place], [address] Chloride [Moles/Vol] 106 mmol/L Normal 98-107 [facility] Comment on above: Performed By: #### L 100.0100, L500.2500 ####[facility] [address] [place], [address] CO2 [Moles/Vol] 27.0 mmol/L Normal 21.0-32.0 [facility] Comment on above: Performed By: #### L 100.0100, L500.2500 ####[facility] [address] [place], [address] Creatinine [Mass/Vol] 0.72 mg/dL Normal 0.55-1.02 [facility] Comment on above: Result Comment: The validity of the calculated GFR GFRAA in patients over70 years has not been determined. Clinical correlation isessential. Performed By: #### L 100.0100, L500.2500 ####[facility] [address] [place], [address] ECRCL 172.27 ml/min Normal [facility] Comment on above: Performed By: #### L 100.0100, L500.2500 ####[facility] [address] [place], [address] EST GFR - AA 108 mL/min Normal >60 [facility] Comment on above: Result Comment: Afri can [place] GFR Calc Performed By: #### L 100.0100, L500.2500 ####[facility] [address] [place], [address] GAP 5 Normal 5-15 [facility] Comment on above: Performed By: #### L 100.0100, L500.2500 ####[facility] [address] [place], [address] GFR/1.73 sq M.predicted among non-blacks MDRD (S/P/Bld) [Vol rate/Area] 89 mL/min/{1.73_m2} Normal >60 [facility] Comment on above: Result Comment: Non- GFR Calc Performed By: #### L 100.0100, L500.2500 ####[facility] [address] [place], [address] Glucose [Mass/Vol] 98 mg/dL Normal 74-106 [facility] Comment on above: Performed By: #### L 100.0100, L500.2500 ####[facility] [address] [place], [address] Potassium [Moles/Vol] 4.1 mmol/L Normal 3.5-5.1 [facility] Comment on above: Performed By: #### L 100.0100, L500.2500 ####[facility] [address] [place], [address] Sodium [Moles/Vol] 138 mmol/L Normal 136-145 [facility] Comment on above: Performed By: #### L 100.0100, L500.2500 ####[facility] [address] [place], [address] Urea nitrogen [Mass/Vol] 13 mg/dL Normal 7-18 [facility] Comment on above: Performed By: #### L 100.0100, L500.2500 ####[facility] [address] [place], [address] CBC W/Diff, Automatedon 05-0 8-2024 Absolute Lymph 0.60 X10 3/uL Low 0.83-4.51 [facility] Comment on above: Order Comment: REDRA W. PREVIOUS SPECIMEN REJECTED DUE TOQNS. 04/06/24916 Adali Pratt. Performed By: #### L 100.0100 ####[facility] [address] [place], [address] Absolute Neut 3.7 X10 3/uL Normal 2.0-7.7 [facility] Comment on above: Order Comment: REDRA W. PREVIOUS SPECIMEN REJECTED DUE TOQNS. 04/06/24916 Adali Pratt. Performed By: #### L 100.0100 ####[facility] [address] [place], [address] Basophils/100 WBC (Bld) 0.2 % Normal 0-1 [facility] Comment on above: Order Comment: REDRA W. PREVIOUS SPECIMEN REJECTED DUE TOQNS. 04/06/24 0917 Adali Pratt. Performed By: #### L 100.0100 ####[facility] [address] [place], [address] Eosinophils/100 WBC (Bld) 0.2 % Normal 0-5 [facility] Comment on above: Order Comment: REDRA W. PREVIOUS SPECIMEN REJECTED DUE TOQNS. 04/06/2417 Adali Pratt. Performed By: #### L 100.0100 ####[facility] [address] [place], [address] Erythrocyte distribution width (RBC) [Ratio] 15.5 % High 11.6-14.6 [facility] Comment on above: Order Comment: REDRA W. PREVIOUS SPECIMEN REJECTED DUE TOQNS. 04/06/24 0917 Adali Pratt. Performed By: #### L 100.0100 ####[facility] [address] [place], [address] Hematocrit (Bld) [Volume fraction] 39.7 % Normal 37-47 [facility] Comment on above: Order Comment: REDRA W. PREVIOUS SPECIMEN REJECTED DUE TOQNS. 04/06/2417 Adali Pratt. Performed By: #### L 100.0100 ####[facility] [address] [place], [address] Hemoglobin (Bld) [Mass/Vol] 12.0 g/dL Normal 12.0-15.0 [facility] Comment on above: Order Comment: REDRA W. PREVIOUS SPECIMEN REJECTED DUE TOQNS. 04/06/24 0917 Adali Pratt. Performed By: #### L 100.0100 ####[facility] [address] [place], [address] IG% 1.000 High 0.0-0.9 [facility] Comment on above: Order Comment: REDRA W. PREVIOUS SPECIMEN REJECTED DUE TOQNS. 04/06/24 0917 Adali Pratt. Result Comment: IG% - Immature Granulocytes (promyelocytes, myelocytes andmetamyelocytes) > 1% indicates that a LEFT SHIFT is Present. Performed By: #### L 100.0100 ####[facility] [address] [place], [address] Lymphocytes/100 WBC (Bld) 12.2 % Low 19-41 [facility] Comment on above: Order Comment: REDRA W. PREVIOUS SPECIMEN REJECTED DUE TOQNS. 04/06/24916 Adali Pratt. Performed By: #### L 100.0100 ####[facility] [address] [place], [address] MCH (RBC) [Entitic mass] 26.3 pg Low 27.0-32.0 [facility] Comment on above: Order Comment: REDRA W. PREVIOUS SPECIMEN REJECTED DUE TOQNS. 04/06/2417 Adali Pratt. Performed By: #### L 100.0100 ####[facility] [address] [place], [address] MCHC (RBC) [Mass/Vol] 30.2 g/dL Low 32-36 [facility] Comment on above: Order Comment: REDRA W. PREVIOUS SPECIMEN REJECTED DUE TOQNS. 04/06/2417 Adali Pratt. Performed By: #### L 100.0100 ####[facility] [address] [place], [address] MCV (RBC) [Entitic vol] 87.1 fL Normal 81-99 [facility] Comment on above: Order Comment: REDRA W. PREVIOUS SPECIMEN REJECTED DUE TOQNS. 04/06/2417 Adali Pratt. Performed By: #### L 100.0100 ####[facility] [address] [place], [address] Monocytes/100 WBC (Bld) 10.8 % High 0-10 [facility] Comment on above: Order Comment: REDRA W. PREVIOUS SPECIMEN REJECTED DUE TOQNS. 04/06/24 0917 Adali Pratt. Performed By: #### L 100.0100 ####[facility] [address] [place], [address] Neutrophils/100 WBC (Bld) 75.6 % High 47-70 [facility] Comment on above: Order Comment: REDRA W. PREVIOUS SPECIMEN REJECTED DUE TOQNS. 04/06/24 0917 Adali Pratt. Performed By: #### L 100.0100 ####[facility] [address] [place], [address] Nucleated RBC (Bld) [#/Vol] 0 10*3/uL Normal 0-5 [facility] Comment on above: Order Comment: REDRA W. PREVIOUS SPECIMEN REJECTED DUE TOQNS. 04/06/24 0917 Adali Pratt. Performed By: #### L 100.0100 ####[facility] [address] [place], [address] Platelet mean volume (Bld) [Entitic vol] 9.5 fL Normal 6.2-12.0 [facility] Comment on above: Order Comment: REDRA W. PREVIOUS SPECIMEN REJECTED DUE TOQNS. 04/06/24 0917 Adali Pratt. Performed By: #### L 100.0100 ####[facility] [address] [place], [address] Platelets (Bld) [#/Vol] 140 10*3/uL Low 150-450 [facility] Comment on above: Order Comment: REDRA W. PREVIOUS SPECIMEN REJECTED DUE TOQNS. 04/06/24 0917 Adali Pratt. Performed By: #### L 100.0100 ####[facility] [address] [place], [address] RBC (Bld) [#/Vol] 4.56 10*6/uL Normal 4.2-5.4 [facility] Comment on above: Order Comment: REDRA W. PREVIOUS SPECIMEN REJECTED DUE TOQNS. 04/06/2417 Adali Pratt. Performed By: #### L 100.0100 ####[facility] [address] [place], [address] RDW SD 49.1 fl High 35.1-43.9 [facility] Comment on above: Order Comment: REDRA W. PREVIOUS SPECIMEN REJECTED DUE TOQNS. 04/06/2417 Adali Pratt. Performed By: #### L 100.0100 ####[facility] [address] [place], [address] WBC (Bld) [#/Vol] 4.9 10*3/uL Normal 4.4-11.0 [facility] Comment on above: Order Comment: REDRA W. PREVIOUS SPECIMEN REJECTED DUE TOQNS. 04/06/2417 Adali Pratt. Performed By: #### L 100.0100 ####[facility] [address] [place], [address] Absolute Neut Normal 2.0-7.7 [facility] Comment on above: Result Comment: This specimen has been REJECTED due to Laboratory criteria:Quanity Not Sufficient.NEYDA has been notified of need of recollection.04/06/2416 Adalidaria Pratt Performed By: #### L 100.0100, L500.2500 ####[facility] [address] [place], [address] HCT Normal 37-47 [facility] Comment on above: Result Comment: This specimen has been REJECTED due to Laboratory criteria:Quanity Not Sufficient.NEYDA has been notified of need of recollection.04/06/2416 Adalidaria Pratt Performed By: #### L 100.0100, L500.2500 ####[facility] [address] [place], [address] HGB Normal 12.0-15.0 [facility] Comment on above: Result Comment: This specimen has been REJECTED due to Laboratory criteria:Quanity Not Sufficient.NEYDA has been notified of need of recollection.04/06/24915 Adali Pratt Performed By: #### L 100.0100, L500.2500 ####[facility] [address] [place], [address] MCH Normal 27.0-32.0 [facility] Comment on above: Result Comment: This specimen has been REJECTED due to Laboratory criteria:Quanity Not Sufficient.NEYDA has been notified of need of recollection.04/06/24915 Adali Pratt Performed By: #### L 100.0100, L500.2500 ####[facility] [address] [place], [address] MCHC Normal 32-36 [facility] Comment on above: Result Comment: This specimen has been REJECTED due to Laboratory criteria:Quanity Not Sufficient.NEYDA has been notified of need of recollection.04/06/24915 Adali Pratt Performed By: #### L 100.0100, L500.2500 ####[facility] [address] [place], [address] MCV Normal 81-99 [facility] Comment on above: Result Comment: This specimen has been REJECTED due to Laboratory criteria:Quanity Not Sufficient.NEYDA has been notified of need of recollection.04/06/2416 Adali Pratt Performed By: #### L 100.0100, L500.2500 ####[facility] [address] [place], [address] NEUT% Normal 47-70 [facility] Comment on above: Result Comment: This specimen has been REJECTED due to Laboratory criteria:Quanity Not Sufficient.NEYDA has been notified of need of recollection.04/06/2416 Adali Pratt Performed By: #### L 100.0100, L500.2500 ####[facility] [address] [place], [address] PLT Normal 150-450 [facility] Comment on above: Result Comment: This specimen has been REJECTED due to Laboratory criteria:Quanity Not Sufficient.NEYDA has been notified of need of recollection.04/06/24915 Adali Pratt Performed By: #### L 100.0100, L500.2500 ####[facility] [address] [place], [address] RBC Normal 4.2-5.4 [facility] Comment on above: Result Comment: This specimen has been REJECTED due to Laboratory criteria:Quanity Not Sufficient.NEYDA has been notified of need of recollection.04/06/24915 Adali Pratt Performed By: #### L 100.0100, L500.2500 ####[facility] [address] [place], [address] RDW CV Normal 11.6-14.6 [facility] Comment on above: Result Comment: This specimen has been REJECTED due to Laboratory criteria:Quanity Not Sufficient.NEYDA has been notified of need of recollection.04/06/2416 Adali Pratt Performed By: #### L 100.0100, L500.2500 ####[facility] [address] [place], [address] RDW SD Normal 35.1-43.9 [facility] Comment on above: Result Comment: This specimen has been REJECTED due to Laboratory criteria:Quanity Not Sufficient.NEYDA has been notified of need of recollection.04/06/24915 Adali Pratt Performed By: #### L 100.0100, L500.2500 ####[facility] [address] [place], [address] WBC Normal 4.4-11.0 [facility] Comment on above: Result Comment: This specimen has been REJECTED due to Laboratory criteria:Quanity Not Sufficient.NEYDA has been notified of need of recollection.04/06/24 0916 Adali Pratt Performed By: #### L 100.0100, L500.2500 ####[facility] [address] [place], [place], [address] Consultation - Infectious Dx on 04-06-2024 Consultation - Infectious Dx Normal [facility] Serum or plasma trough vanco mycin levelOrdered By: Calderon Swanson on 04-05-2024 Vancomycin trough [Mass/Vol] 18.5 ug/mL 5.0-15.0 [facility] Comment on above: VANCOMYCIN STANDARED DRUG THERAPY TROUGH LEVEL: 5.0 - 15.0 mg/L VANCOMYCIN HIGH INTENSITY THERAPY TROUGH LEVEL: 15.0 - 20.0 mg/L High Intensity therapy recommended for serious lifethreatening infections include:- Fhutnryeoj-Iouuuayvqjip-Lewxlddsw (Ventilator/Healtcare Associated)-Sepsis PLEASE CONTACT PHARMACY SERVICES (#0139) FOR INTERPRETATIONOF RESULTS. Vancomycin, Trough Levelon 0 04-05-2024 VANCO, TROUGH 18.5 ug/mL High 5.0-15.0 [facility] Comment on above: Order Comment: Comme nts: Trough to be drawn 30 mins prior to scheduled [id number] Result Comment: VANC OMYCIN STANDARED DRUG THERAPY TROUGH LEVEL: 5.0 - 15.0 mg/LVANCOMYCIN HIGH INTENSITY THERAPY TROUGH LEVEL: 15.0 - 20.0 mg/LHigh Intensity therapy recommended for serious lifethreatening infections include:- Wtijsdgrgx-Inqmlxxgullr-Xifqrresk (Ventilator/Healtcare Associated)-SepsisPLEASE CONTACT PHARMACY SERVICES (#1949) FOR INTERPRETATIONOF RESULTS. Performed By: #### L 501.8820 ####[facility] [address] [place], [place], [address] Venous Duplex US - Yariel Extre mon 04-05-2024 Venous Duplex US - Yariel Extrem Normal [facility] Absolute lymphocyte countOrd ered By: Gian Villanueva on 04-04-2024 Lymphocytes Auto (Unsp spec) [#/Vol] 0.41 10*3/uL 0.83-4.51 [facility] Automated lymphocyte count a s percentage of total leukocytesOrdered By: Gian Villanueva on 04-04-2024 Lymphocytes/100 WBC Auto (Unsp spec) 2.6 % 19-41 [facility] Basophil percentageOrdered B y: Gian Villanueva on 04-04-2024 Basophils/100 WBC (Bld) 0.1 % 0-1 [facility] Bilirubin [Mass/Vol] 0.60 mg/dL 0.20-1.00 [facility] Comment on above: For patients on eltr ombopag therapy, use of [facility] [place] TBIL is not recommended. Chloride [Moles/Vol] 101 mmol/L 98-107 [facility] Eosinophils/100 WBC (Bld) 0.0 % 0-5 [facility] Glucose [Mass/Vol] 113 mg/dL 74-106 [facility] Comment on above: Fasting Glucose resu lt from 100 to 125 mg/dL suggests IMPAIRED HOMEOSTASIS per A.D.A. criteria. Hemoglobin (Bld) [Mass/Vol] 12.4 g/dL 12.0-15.0 [facility] Lactate [Moles/Vol] 1.4 mmol/L 0.4-2.0 [facility] Monocytes/100 WBC (Bld) 5.0 % 0-10 [facility] Neutrophils (Bld) [#/Vol] 14.3 10*3/uL 2.0-7.7 [facility] Neutrophils/100 WBC (Bld) 91.5 % 47-70 [facility] Potassium [Moles/Vol] 4.6 mmol/L 3.5-5.1 [facility] Protein [Mass/Vol] 7.6 g/dL 6.4-8.2 [facility] Sodium [Moles/Vol] 135 mmol/L 136-145 [facility] WBC (Bld) [#/Vol] 15.7 10*3/uL 4.4-11.0 [facility] Blood manual differential co mment interpretation (narrative result)Ordered By: Gian Villanueva on 04-04-2024 Manual differential comment Terry (Bld) [Interp] SCANNED [facility] Comment on above: LYMPHOPENIA NOTED CBC W/Diff, Automatedon SMEAR COMMENT SCANNED Normal [facility] Comment on above: Result Comment: LYMP HOPENIA NOTED Performed By: #### L 100.0100 ####[facility] [address] [place], [address] Comprehensive Metabolic Prof ilon 04-04-2024 Albumin [Mass/Vol] 3.3 g/dL Normal 3.2-5.0 [facility] Comment on above: Performed By: #### L 503.6005, M200.1000, L500.4050 ####[facility] [address] [place], [address] Albumin/Globulin [Mass ratio] 0.8 {ratio} Low 0.9-2.4 [facility] Comment on above: Performed By: #### L 503.6005, M200.1000, L500.4050 ####[facility] [address] [place], [address] ALK P 76 U/L Normal 45-117 [facility] Comment on above: Performed By: #### L 503.6005, M200.1000, L500.4050 ####[facility] [address] [place], [address] ALT [Catalytic activity/Vol] 24 U/L Normal 13-56 [facility] Comment on above: Performed By: #### L 503.6005, M200.1000, L500.4050 ####[facility] [address] [place], [address] AST [Catalytic activity/Vol] 26 U/L Normal 15-37 [facility] Comment on above: Performed By: #### L 503.6005, M200.1000, L500.4050 ####[facility] [address] [place], [address] Bilirubin [Mass/Vol] 0.60 mg/dL Normal 0.20-1.00 [facility] Comment on above: Result Comment: For patients on eltrombopag therapy, use of [facility] [place] TBIL is not recommended. Performed By: #### L 503.6005, M200.1000, L500.4050 ####[facility] [address] [place], [address] BUN/CRE 20.0 RATIO Normal 10-20 [facility] Comment on above: Performed By: #### L 503.6005, M200.1000, L500.4050 ####[facility] [address] [place], [address] CA,Total 9.1 mg/dL Normal 8.5-10.1 [facility] Comment on above: Performed By: #### L 503.6005, M200.1000, L500.4050 ####[facility] [address] [place], [address] Chloride [Moles/Vol] 101 mmol/L Normal 98-107 [facility] Comment on above: Performed By: #### L 503.6005, M200.1000, L500.4050 ####[facility] [address] [place], [address] CO2 [Moles/Vol] 29.0 mmol/L Normal 21.0-32.0 [facility] Comment on above: Performed By: #### L 503.6005, M200.1000, L500.4050 ####[facility] [address] [place], [address] Creatinine [Mass/Vol] 1.05 mg/dL High 0.55-1.02 [facility] Comment on above: Result Comment: The validity of the calculated GFR GFRAA in patients over70 years has not been determined. Clinical correlation isessential. Performed By: #### L 503.6005, M200.1000, L500.4050 ####[facility] [address] [place], [address] ECRCL 118.07 ml/min Normal [facility] Comment on above: Performed By: #### L 503.6005, M200.1000, L500.4050 ####[facility] [address] [place], [address] EST GFR - AA 70 mL/min Normal >60 [facility] Comment on above: Result Comment: Afri can [place] GFR Calc Performed By: #### L 503.6005, M200.1000, L500.4050 ####[facility] [address] [place], [address] GAP 5 Normal 5-15 [facility] Comment on above: Performed By: #### L 503.6005, M200.1000, L500.4050 ####[facility] [address] [place], [address] GFR/1.73 sq M.predicted among non-blacks MDRD (S/P/Bld) [Vol rate/Area] 58 mL/min/{1.73_m2} Low >60 [facility] Comment on above: Result Comment: Non- GFR Calc Performed By: #### L 503.6005, M200.1000, L500.4050 ####[facility] [address] [place], [address] Globulin (S) [Mass/Vol] 4.3 g/dL High 2.2-4.2 [facility] Comment on above: Performed By: #### L 503.6005, M200.1000, L500.4050 ####[facility] [address] [place], [address] Glucose [Mass/Vol] 113 mg/dL High 74-106 [facility] Comment on above: Result Comment: Fast ing Glucose result from 100 to 125 mg/dLsuggests IMPAIRED HOMEOSTASIS per A.D.A. criteria. Performed By: #### L 503.6005, M200.1000, L500.4050 ####[facility] [address] [place], [address] Potassium [Moles/Vol] 4.6 mmol/L Normal 3.5-5.1 [facility] Comment on above: Performed By: #### L 503.6005, M200.1000, L500.4050 ####[facility] [address] [place], [address] Sodium [Moles/Vol] 135 mmol/L Low 136-145 [facility] Comment on above: Performed By: #### L 503.6005, M200.1000, L500.4050 ####[facility] [address] [place], [address] T PROT 7.6 g/dL Normal 6.4-8.2 [facility] Comment on above: Performed By: #### L 503.6005, M200.1000, L500.4050 ####[facility] [address] [place], [address] Urea nitrogen [Mass/Vol] 21 mg/dL High 7-18 [facility] Comment on above: Performed By: #### L 503.6005, M200.1000, L500.4050 ####[facility] [address] [place], [address] Determination of erythrocyte mean corpuscular volume (MCV)Ordered By: Gian Villanueva on 04-04-2024 MCV (RBC) [Entitic vol] 85.6 fL 81-99 [facility] Emergency Department Summary on 04-04-2024 Emergency Department Summary Normal [facility] Erythrocyte distribution wid th ratioOrdered By: Gian Villanueva on 04-04-2024 Erythrocyte distribution width (RBC) [Ratio] 15.2 % 11.6-14.6 [facility] Erythrocyte distribution wid th standard deviationOrdered By: Gian Villanueva on 04-04-2024 Erythrocyte distribution width (RBC) [Entitic vol] 47.2 fL 35.1-43.9 [facility] H AND P Exam - Hospitaliston 04-04-2024 H&P Exam - Hospitalist Normal [facility] Hematocrit Auto (Bld) [Volum e fraction]Ordered By: Gian Villanueva on 04-04-2024 Hematocrit (Bld) [Volume fraction] 39.1 % 37-47 [facility] Immature granulocytes/100 WB C Auto (Bld)Ordered By: Gian Villanueva on 04-04-2024 Immature granulocytes/100 WBC (Bld) 0.800 % 0.0-0.9 [facility] Comment on above: IG% - Immature Granu locytes (promyelocytes, myelocytes and metamyelocytes) > 1% indicates that a LEFT SHIFT is Present. Laboratory - Chemistry and C hemistry - challengeOrdered By: Gian Villanueva on 04-04-2024 Albumin/Globulin [Mass ratio] 0.8 {ratio} 0.9-2.4 [facility] ALP [Catalytic activity/Vol] 76 U/L 45-117 [facility] ALT [Catalytic activity/Vol] 24 U/L 13-56 [facility] CO2 [Moles/Vol] 29.0 mmol/L 21.0-32.0 [facility] Globulin (S) [Mass/Vol] 4.3 g/dL 2.2-4.2 [facility] Urea nitrogen/Creatinine [Mass ratio] 20.0 mg/mg 10-20 [facility] Laboratory - Hematology and Cell countsOrdered By: Gian Villanueva on 04-04-2024 MCH (RBC) [Entitic mass] 27.1 pg 27.0-32.0 [facility] MCHC (RBC) [Mass/Vol] 31.7 g/dL 32-36 [facility] Nucleated RBC/100 WBC (Bld) [Ratio] 0 % 0-5 [facility] Platelet mean volume (Bld) [Entitic vol] 10.3 fL 6.2-12.0 [facility] Platelets (Bld) [#/Vol] 187 10*3/uL 150-450 [facility] Lactic Acidon 04-04-2024 Lactate [Moles/Vol] 1.4 mmol/L Normal 0.4-1.9 [facility] Comment on above: Order Comment: Y Performed By: #### L 503.6005, M200.1000, L500.4050 ####[facility] [address] [place], [address] No Panel InformationOrdered By: Gian Villanueva on 04-04-2024 Estimated Creatinine Clearance Calc 118.07 ml/min [facility] Estimated GFR (MDRD) Amer 70 mL/min >60 [facility] Comment on above: GFR Calc Estimated GFR (MDRD) Non-Af Amer 58 mL/min >60 [facility] Comment on above: Non- GFR Calc RBC Auto (Bld) [#/Vol]Ordere d By: Gian Villanueva on 04-04-2024 RBC (Bld) [#/Vol] 4.57 10*6/uL 4.2-5.4 [facility] Serum or plasma calcium herson urement (mass/volume)Ordered By: Gian Villanueva on 04-04-2024 Calcium [Mass/Vol] 9.1 mg/dL 8.5-10.1 [facility] Serum or plasma creatinine m easurement (mass/volume)Ordered By: Gian Villanueva on 04-04-2024 Creatinine [Mass/Vol] 1.05 mg/dL 0.55-1.02 [facility] Comment on above: The validity of the calculated GFR & GFRAA in patients over 70 years has not been determined. Clinical correlation is essential. Serum or plasma urea nitroge n measurement (mass/volume)Ordered By: Gian Villanueva on 04-04-2024 Urea nitrogen [Mass/Vol] 21 mg/dL 7-18 [facility] Thin prep Papanicolaou smear with manual screeningOrdered By: Gian Villanueva on 04-04-2024 Thin prep Papanicolaou smear with manual screening 3.3 g/dL 3.2-5.0 [facility] Thin prep Papanicolaou smear with manual screening 26 U/L 15-37 [facility] Thin prep Papanicolaou smear with manual screening 5 5-15 [facility] Office Visiton 09-04-2023 Follow-up visit [id number] Jesusita England 1970 F Date Provider Department Center 09/04/2023 [id number] ID None Family History Problem Relation Age of Onset Other Mother Comments: Alzheimers disease Family Status - Relation Status Age at Mother Father Other Sister Alive Sister Alive Daughter Alive Level of Service:01067 ID OFFICE/OUTPATIENT NEW MODERATE MDM 45-59 MINUTES Reason for Visit and Comments: Follow-up [[id number]] - Recurrent cellulitis (est pt, new to Dr. Tavera) [facility] Progress Noteon 09-04-2023 Progress Note Subjective Patient ID: Jesusita England is a 53 y.o. female. Cellulitis Jesusita is a 53 y.o. female here for evaluation of cellulitis and recurrent for approximately 4-6 months R>L LE . Venous access: none. Current length of antibiotic treatment duration: approximately 2 weeks. Medication related side effects: none. who is accompanying Jesusita notes the appetite has been fair. Energy level has been fair. Jesusita has not had weight loss. Patient has been taking po antibiotics on and off since 01/2023 for RLE>LLE cellulitis episodes from her PCP, and was hospitalized twice in June and July for flares. Both times with fever, simple sepsis and responded to IV antibiotics, but after po tail, relapsed. This time around ID( Dr. Shannon) recommended amoxicillin suppression for up to 30 days. Her Primary Care also prescribed Hibiclens wash. She is here for second opinion. Not diabetic, no ktrauma to legs in the past. Remote heel spur surgery. In Bariatric clinic program with [facility]- has lost 30# intentionally already. Additional Complaints: Chronic lymphedema- known to Lymephdema clinic locally, but has not been seen this year, already using compression device, but difficulty tolerating it during episodes of cellulitis. Review of Systems Constitutional: Positive for fever (resolved from last hospitalization). Negative for chills. Respiratory: Negative for shortness of breath. Cardiovascular: Positive for leg swelling (chornic-improving on po antibiotic). Negative for chest pain. Gastrointestinal: Negative. Genitourinary: Negative. Neurological: Negative for weakness and headaches. Hematological: Does not bruise/bleed easily. Psychiatric/Behavioral: Negative. Objective Physical Exam Vitals reviewed. Constitutional: General: She is not in acute distress. Appearance: Normal appearance. She is obese. She is not ill-appearing or toxic-appearing. Pulmonary: Effort: Pulmonary effort is normal. Musculoskeletal: General: Swelling (to both legs) present. Normal range of motion. Skin: Findings: Erythema (chornic appearing from previous infeciton to both legs, skin folds, minimal intertrigo candidiasis, no obvious skin breakes; no tinea pedis) present. Neurological: General: No focal deficit present. Mental Status: She is alert and oriented to person, place, and time. Psychiatric: Mood and Affect: Mood normal. Thought Content: Thought content normal. Laboratory: Per [facility] tab referral notes Assessment/Plan Cellulitis and recurrent, with underlying obnesity, lymphedema as risk factors : resolved. For now agree with amoxicillin.Also see if Hibiclens can help prevent recurrence. Will give additional Rx for on demand next time she has a flare. Continue topical antifungal powder for skin folds. Encouraged her to use lymphedema boot again, and to follow up with the local clinic for additional recommendations. Follow up if symptoms worsen or fail to improve. Normal [facility] Culture, Blood (WB)on 2022 CUB No growth in 5 days. Normal [facility] Comment on above: Performed By: #### M 200.1000 ####[facility] [address] [place], [address] CUB No growth in 5 days. Normal [facility] Comment on above: Performed By: #### M 200.1000 ####[facility] [address] [place], [address] Absolute lymphocyte countOrd ered By: Calderon Ware on 08-21-2023 Lymphocytes Auto (Unsp spec) [#/Vol] 1.17 10*3/uL 0.83-4.51 [facility] Basic Metabolic Profile (BMP )on 08-21-2023 BUN/CRE 15.9 RATIO Normal 10-20 [facility] Comment on above: Performed By: #### L 100.0100, L500.2500 ####[facility] [address] [place], [address] CA,Total 8.6 mg/dL Normal 8.5-10.1 [facility] Comment on above: Performed By: #### L 100.0100, L500.2500 ####[facility] [address] [place], [address] Chloride [Moles/Vol] 108 mmol/L High 98-107 [facility] Comment on above: Performed By: #### L 100.0100, L500.2500 ####[facility] [address] [place], [address] CO2 [Moles/Vol] 27.0 mmol/L Normal 21.0-32.0 [facility] Comment on above: Performed By: #### L 100.0100, L500.2500 ####[facility] [address] [place], [address] Creatinine [Mass/Vol] 0.69 mg/dL Normal 0.55-1.02 [facility] Comment on above: Result Comment: The validity of the calculated GFR GFRAA in patients over70 years has not been determined. Clinical correlation isessential. Performed By: #### L 100.0100, L500.2500 ####[facility] [address] [place], [address] ECRCL 79.55 ml/min Normal [facility] Comment on above: Performed By: #### L 100.0100, L500.2500 ####[facility] [address] [place], [address] EST GFR - AA 113 mL/min Normal >60 [facility] Comment on above: Result Comment: Afri can [place] GFR Calc Performed By: #### L 100.0100, L500.2500 ####[facility] [address] [place], [address] GAP 3 Low 5-15 [facility] Comment on above: Performed By: #### L 100.0100, L500.2500 ####[facility] [address] [place], [address] GFR/1.73 sq M.predicted among non-blacks MDRD (S/P/Bld) [Vol rate/Area] 94 mL/min/{1.73_m2} Normal >60 [facility] Comment on above: Result Comment: Non- GFR Calc Performed By: #### L 100.0100, L500.2500 ####[facility] [address] [place], [address] Glucose [Mass/Vol] 108 mg/dL High 74-106 [facility] Comment on above: Result Comment: Fast ing Glucose result from 100 to 125 mg/dLsuggests IMPAIRED HOMEOSTASIS per A.D.A. criteria. Performed By: #### L 100.0100, L500.2500 ####[facility] [address] [place], [address] Potassium [Moles/Vol] 3.9 mmol/L Normal 3.5-5.1 [facility] Comment on above: Performed By: #### L 100.0100, L500.2500 ####[facility] [address] [place], [address] Sodium [Moles/Vol] 138 mmol/L Normal 136-145 [facility] Comment on above: Performed By: #### L 100.0100, L500.2500 ####[facility] [address] [place], [address] Urea nitrogen [Mass/Vol] 11 mg/dL Normal 7-18 [facility] Comment on above: Performed By: #### L 100.0100, L500.2500 ####[facility] [address] [place], [address] Basophil percentageOrdered B y: Calderon Ware on 08-21-2023 Basophils/100 WBC (Bld) 0.2 % 0-1 [facility] Chloride [Moles/Vol] 108 mmol/L 98-107 [facility] Eosinophils/100 WBC (Bld) 0.2 % 0-5 [facility] Glucose [Mass/Vol] 108 mg/dL 74-106 [facility] Comment on above: Fasting Glucose resu lt from 100 to 125 mg/dL suggests IMPAIRED HOMEOSTASIS per A.D.A. criteria. Neutrophils (Bld) [#/Vol] 4.4 10*3/uL 2.0-7.7 [facility] Neutrophils/100 WBC (Bld) 69.7 % 47-70 [facility] Potassium [Moles/Vol] 3.9 mmol/L 3.5-5.1 [facility] Sodium [Moles/Vol] 138 mmol/L 136-145 [facility] WBC (Bld) [#/Vol] 6.3 10*3/uL 4.4-11.0 [facility] Blood erythrocytes count (nu mber/volume)Ordered By: Calderon Ware on 08-21-2023 RBC (Bld) [#/Vol] 3.88 10*6/uL 4.2-5.4 [facility] Blood hemoglobin measurement (mass/volume)Ordered By: Calderon Ware on 08-21-2023 Hemoglobin (Bld) [Mass/Vol] 10.6 g/dL 12.0-15.0 [facility] Blood lymphocytes/100 leukoc ytesOrdered By: Calderon Ware on 08-21-2023 Lymphocytes/100 WBC (Bld) 18.6 % 19-41 [facility] Blood monocytes/100 leukocyt esOrdered By: Calderon Ware on 08-21-2023 Monocytes/100 WBC (Bld) 9.9 % 0-10 [facility] Blood platelet mean volumeOr dered By: Calderon Ware on 08-21-2023 Platelet mean volume (Bld) [Entitic vol] 9.8 fL 6.2-12.0 [facility] CBC W/Diff, Automatedon 08-01 Absolute Lymph 1.17 X10 3/uL Normal 0.83-4.51 [facility] Comment on above: Performed By: #### L 100.0100, L500.2500 ####[facility] [address] [place], [address] Absolute Neut 4.4 X10 3/uL Normal 2.0-7.7 [facility] Comment on above: Performed By: #### L 100.0100, L500.2500 ####[facility] [address] [place], [address] Basophils/100 WBC (Bld) 0.2 % Normal 0-1 [facility] Comment on above: Performed By: #### L 100.0100, L500.2500 ####[facility] [address] [place], [address] Eosinophils/100 WBC (Bld) 0.2 % Normal 0-5 [facility] Comment on above: Performed By: #### L 100.0100, L500.2500 ####[facility] [address] [place], [address] Erythrocyte distribution width (RBC) [Ratio] 15.6 % High 11.6-14.6 [facility] Comment on above: Performed By: #### L 100.0100, L500.2500 ####[facility] [address] [place], [address] Hematocrit (Bld) [Volume fraction] 33.8 % Low 37-47 [facility] Comment on above: Performed By: #### L 100.0100, L500.2500 ####[facility] [address] [place], [address] Hemoglobin (Bld) [Mass/Vol] 10.6 g/dL Low 12.0-15.0 [facility] Comment on above: Performed By: #### L 100.0100, L500.2500 ####[facility] [address] [place], [address] IG% 1.400 High 0.0-0.9 [facility] Comment on above: Result Comment: IG% - Immature Granulocytes (promyelocytes, myelocytes andmetamyelocytes) > 1% indicates that a LEFT SHIFT is Present. Performed By: #### L 100.0100, L500.2500 ####[facility] [address] [place], [address] Lymphocytes/100 WBC (Bld) 18.6 % Low 19-41 [facility] Comment on above: Performed By: #### L 100.0100, L500.2500 ####[facility] [address] [place], [address] MCH (RBC) [Entitic mass] 27.3 pg Normal 27.0-32.0 [facility] Comment on above: Performed By: #### L 100.0100, L500.2500 ####[facility] [address] [place], [address] MCHC (RBC) [Mass/Vol] 31.4 g/dL Low 32-36 [facility] Comment on above: Performed By: #### L 100.0100, L500.2500 ####[facility] [address] [place], [address] MCV (RBC) [Entitic vol] 87.1 fL Normal 81-99 [facility] Comment on above: Performed By: #### L 100.0100, L500.2500 ####[facility] [address] [place], [address] Monocytes/100 WBC (Bld) 9.9 % Normal 0-10 [facility] Comment on above: Performed By: #### L 100.0100, L500.2500 ####[facility] [address] [place], [address] Neutrophils/100 WBC (Bld) 69.7 % Normal 47-70 [facility] Comment on above: Performed By: #### L 100.0100, L500.2500 ####[facility] [address] [place], [address] Nucleated RBC (Bld) [#/Vol] 0 10*3/uL Normal 0-5 [facility] Comment on above: Performed By: #### L 100.0100, L500.2500 ####[facility] [address] [place], [address] Platelet mean volume (Bld) [Entitic vol] 9.8 fL Normal 6.2-12.0 [facility] Comment on above: Performed By: #### L 100.0100, L500.2500 ####[facility] [address] [place], [address] Platelets (Bld) [#/Vol] 165 10*3/uL Normal 150-450 [facility] Comment on above: Performed By: #### L 100.0100, L500.2500 ####[facility] [address] [place], [address] RBC (Bld) [#/Vol] 3.88 10*6/uL Low 4.2-5.4 [facility] Comment on above: Performed By: #### L 100.0100, L500.2500 ####[facility] [address] [place], [address] RDW SD 50.3 fl High 35.1-43.9 [facility] Comment on above: Performed By: #### L 100.0100, L500.2500 ####[facility] [address] [place], [address] WBC (Bld) [#/Vol] 6.3 10*3/uL Normal 4.4-11.0 [facility] Comment on above: Performed By: #### L 100.0100, L500.2500 ####[facility] [address] [place], [address] Determination of erythrocyte mean corpuscular volume (MCV)Ordered By: Calderon Ware on 08-21-2023 MCV (RBC) [Entitic vol] 87.1 fL 81-99 [facility] Hematocrit Auto (Bld) [Volum e fraction]Ordered By: Calderon Ware on 08-21-2023 Hematocrit (Bld) [Volume fraction] 33.8 % 37-47 [facility] Laboratory - Chemistry and C hemistry - challengeOrdered By: Calderon Ware on 08-21-2023 CO2 [Moles/Vol] 27.0 mmol/L 21.0-32.0 [facility] Urea nitrogen/Creatinine [Mass ratio] 15.9 mg/mg 10-20 [facility] Laboratory - Hematology and Cell countsOrdered By: Calderon Ware on 08-21-2023 Erythrocyte distribution width (RBC) [Entitic vol] 50.3 fL 35.1-43.9 [facility] Erythrocyte distribution width (RBC) [Ratio] 15.6 % 11.6-14.6 [facility] Immature granulocytes/100 WBC (Bld) 1.400 % 0.0-0.9 [facility] Comment on above: IG% - Immature Granu locytes (promyelocytes, myelocytes and metamyelocytes) > 1% indicates that a LEFT SHIFT is Present. MCH (RBC) [Entitic mass] 27.3 pg 27.0-32.0 [facility] Nucleated RBC/100 WBC (Bld) [Ratio] 0 % 0-5 [facility] MCHC Auto (RBC) [Mass/Vol]Or dered By: Calderon Ware on 08-21-2023 MCHC (RBC) [Mass/Vol] 31.4 g/dL 32-36 [facility] No Panel InformationOrdered By: Calderon Ware on 08-21-2023 Estimated Creatinine Clearance Calc 79.55 ml/min [facility] Estimated GFR (MDRD) Amer 113 mL/min >60 [facility] Comment on above: GFR Calc Estimated GFR (MDRD) Non-Af Amer 94 mL/min >60 [facility] Comment on above: Non- GFR Calc Platelets bldOrdered By: Liborio Ware on 08-21-2023 Platelets (Bld) [#/Vol] 165 10*3/uL 150-450 [facility] Serum or plasma calcium herson urement (mass/volume)Ordered By: Calderon Ware on 08-21-2023 Calcium [Mass/Vol] 8.6 mg/dL 8.5-10.1 [facility] Serum or plasma creatinine m easurement (mass/volume)Ordered By: Calderon Ware on 08-21-2023 Creatinine [Mass/Vol] 0.69 mg/dL 0.55-1.02 [facility] Comment on above: The validity of the calculated GFR & GFRAA in patients over 70 years has not been determined. Clinical correlation is essential. Serum or plasma urea nitroge n measurement (mass/volume)Ordered By: Calderon Ware on 08-21-2023 Urea nitrogen [Mass/Vol] 11 mg/dL 7-18 [facility] Thin prep Papanicolaou smear with manual screeningOrdered By: Calderon Ware on 08-21-2023 Thin prep Papanicolaou smear with manual screening 3 5-15 [facility] Basic Metabolic Profile (BMP )on 08-20-2023 BUN/CRE 17.4 RATIO Normal 10-20 [facility] Comment on above: Performed By: #### L 500.2500, L100.0100 ####[facility] [address] [place], [address] CA,Total 8.5 mg/dL Normal 8.5-10.1 [facility] Comment on above: Performed By: #### L 500.2500, L100.0100 ####[facility] [address] [place], [address] Chloride [Moles/Vol] 110 mmol/L High 98-107 [facility] Comment on above: Performed By: #### L 500.2500, L100.0100 ####[facility] [address] [place], [address] CO2 [Moles/Vol] 25.0 mmol/L Normal 21.0-32.0 [facility] Comment on above: Performed By: #### L 500.2500, L100.0100 ####[facility] [address] [place], [address] Creatinine [Mass/Vol] 0.69 mg/dL Normal 0.55-1.02 [facility] Comment on above: Result Comment: The validity of the calculated GFR GFRAA in patients over70 years has not been determined. Clinical correlation isessential. Performed By: #### L 500.2500, L100.0100 ####[facility] [address] [place], [address] ECRCL 79.55 ml/min Normal [facility] Comment on above: Performed By: #### L 500.2500, L100.0100 ####[facility] [address] [place], [address] EST GFR - AA 114 mL/min Normal >60 [facility] Comment on above: Result Comment: Afri can [place] GFR Calc Performed By: #### L 500.2500, L100.0100 ####[facility] [address] [place], [address] GAP 3 Low 5-15 [facility] Comment on above: Performed By: #### L 500.2500, L100.0100 ####[facility] [address] [place], [address] GFR/1.73 sq M.predicted among non-blacks MDRD (S/P/Bld) [Vol rate/Area] 94 mL/min/{1.73_m2} Normal >60 [facility] Comment on above: Result Comment: Non- GFR Calc Performed By: #### L 500.2500, L100.0100 ####[facility] [address] [place], [address] Glucose [Mass/Vol] 112 mg/dL High 74-106 [facility] Comment on above: Result Comment: Fast ing Glucose result from 100 to 125 mg/dLsuggests IMPAIRED HOMEOSTASIS per A.D.A. criteria. Performed By: #### L 500.2500, L100.0100 ####[facility] [address] [place], [address] Potassium [Moles/Vol] 3.8 mmol/L Normal 3.5-5.1 [facility] Comment on above: Performed By: #### L 500.2500, L100.0100 ####[facility] [address] [place], [address] Sodium [Moles/Vol] 138 mmol/L Normal 136-145 [facility] Comment on above: Performed By: #### L 500.2500, L100.0100 ####[facility] [address] [place], [address] Urea nitrogen [Mass/Vol] 12 mg/dL Normal 7-18 [facility] Comment on above: Performed By: #### L 500.2500, L100.0100 ####[facility] [address] [place], [address] CBC W/Diff, Automatedon 09-2 Absolute Lymph 0.93 X10 3/uL Normal 0.83-4.51 [facility] Comment on above: Performed By: #### L 500.2500, L100.0100 ####[facility] [address] [place], [address] Absolute Neut 5.0 X10 3/uL Normal 2.0-7.7 [facility] Comment on above: Performed By: #### L 500.2500, L100.0100 ####[facility] [address] [place], [address] Basophils/100 WBC (Bld) 0.2 % Normal 0-1 [facility] Comment on above: Performed By: #### L 500.2500, L100.0100 ####[facility] [address] [place], [address] Eosinophils/100 WBC (Bld) 0.0 % Normal 0-5 [facility] Comment on above: Performed By: #### L 500.2500, L100.0100 ####[facility] [address] [place], [address] Erythrocyte distribution width (RBC) [Ratio] 15.6 % High 11.6-14.6 [facility] Comment on above: Performed By: #### L 500.2500, L100.0100 ####[facility] [address] [place], [address] Hematocrit (Bld) [Volume fraction] 33.3 % Low 37-47 [facility] Comment on above: Performed By: #### L 500.2500, L100.0100 ####[facility] [address] [place], [address] Hemoglobin (Bld) [Mass/Vol] 10.4 g/dL Low 12.0-15.0 [facility] Comment on above: Performed By: #### L 500.2500, L100.0100 ####[facility] [address] [place], [address] IG% 0.600 Normal 0.0-0.9 [facility] Comment on above: Result Comment: IG% - Immature Granulocytes (promyelocytes, myelocytes andmetamyelocytes) > 1% indicates that a LEFT SHIFT is Present. Performed By: #### L 500.2500, L100.0100 ####[facility] [address] [place], [address] Lymphocytes/100 WBC (Bld) 14.3 % Low 19-41 [facility] Comment on above: Performed By: #### L 500.2500, L100.0100 ####[facility] [address] [place], [address] MCH (RBC) [Entitic mass] 27.3 pg Normal 27.0-32.0 [facility] Comment on above: Performed By: #### L 500.2500, L100.0100 ####[facility] [address] [place], [address] MCHC (RBC) [Mass/Vol] 31.2 g/dL Low 32-36 [facility] Comment on above: Performed By: #### L 500.2500, L100.0100 ####[facility] [address] [place], [address] MCV (RBC) [Entitic vol] 87.4 fL Normal 81-99 [facility] Comment on above: Performed By: #### L 500.2500, L100.0100 ####[facility] [address] [place], [address] Monocytes/100 WBC (Bld) 8.5 % Normal 0-10 [facility] Comment on above: Performed By: #### L 500.2500, L100.0100 ####[facility] [address] [place], [address] Neutrophils/100 WBC (Bld) 76.4 % High 47-70 [facility] Comment on above: Performed By: #### L 500.2500, L100.0100 ####[facility] [address] [place], [address] Nucleated RBC (Bld) [#/Vol] 0 10*3/uL Normal 0-5 [facility] Comment on above: Performed By: #### L 500.2500, L100.0100 ####[facility] [address] [place], [address] Platelet mean volume (Bld) [Entitic vol] 9.6 fL Normal 6.2-12.0 [facility] Comment on above: Performed By: #### L 500.2500, L100.0100 ####[facility] [address] [place], [address] Platelets (Bld) [#/Vol] 155 10*3/uL Normal 150-450 [facility] Comment on above: Performed By: #### L 500.2500, L100.0100 ####[facility] [address] [place], [address] RBC (Bld) [#/Vol] 3.81 10*6/uL Low 4.2-5.4 [facility] Comment on above: Performed By: #### L 500.2500, L100.0100 ####[facility] [address] [place], [address] RDW SD 49.9 fl High 35.1-43.9 [facility] Comment on above: Performed By: #### L 500.2500, L100.0100 ####[facility] [address] [place], [address] WBC (Bld) [#/Vol] 6.5 10*3/uL Normal 4.4-11.0 [facility] Comment on above: Performed By: #### L 500.2500, L100.0100 ####[facility] [address] [place], [address] Basic Metabolic Profile (BMP )on 08-19-2023 BUN/CRE 14.6 RATIO Normal - [facility] Comment on above: Performed By: #### L 501.5200, L500.2500, L100.0100 ####[facility] [address] [place], [address] CA,Total 8.2 mg/dL Low 8.5-10.1 [facility] Comment on above: Performed By: #### L 501.5200, L500.2500, L100.0100 ####[facility] [address] [place], [address] Chloride [Moles/Vol] 109 mmol/L High 98-107 [facility] Comment on above: Performed By: #### L 501.5200, L500.2500, L100.0100 ####[facility] [address] [place], [address] CO2 [Moles/Vol] 25.0 mmol/L Normal 21.0-32.0 [facility] Comment on above: Performed By: #### L 501.5200, L500.2500, L100.0100 ####[facility] [address] [place], [address] Creatinine [Mass/Vol] 0.75 mg/dL Normal 0.55-1.02 [facility] Comment on above: Result Comment: The validity of the calculated GFR GFRAA in patients over70 years has not been determined. Clinical correlation isessential. Performed By: #### L 501.5200, L500.2500, L100.0100 ####[facility] [address] [place], [address] ECRCL 73.19 ml/min Normal [facility] Comment on above: Performed By: #### L 501.5200, L500.2500, L100.0100 ####[facility] [address] [place], [address] EST GFR - AA 103 mL/min Normal >60 [facility] Comment on above: Result Comment: Afri can [place] GFR Calc Performed By: #### L 501.5200, L500.2500, L100.0100 ####[facility] [address] [place], [address] GAP 4 Low 5-15 [facility] Comment on above: Performed By: #### L 501.5200, L500.2500, L100.0100 ####[facility] [address] [place], [address] GFR/1.73 sq M.predicted among non-blacks MDRD (S/P/Bld) [Vol rate/Area] 85 mL/min/{1.73_m2} Normal >60 [facility] Comment on above: Result Comment: Non- GFR Calc Performed By: #### L 501.5200, L500.2500, L100.0100 ####[facility] [address] [place], [address] Glucose [Mass/Vol] 105 mg/dL Normal 74-106 [facility] Comment on above: Result Comment: Fast ing Glucose result from 100 to 125 mg/dLsuggests IMPAIRED HOMEOSTASIS per A.D.A. criteria. Performed By: #### L 501.5200, L500.2500, L100.0100 ####[facility] [address] [place], [address] Potassium [Moles/Vol] 3.8 mmol/L Normal 3.5-5.1 [facility] Comment on above: Performed By: #### L 501.5200, L500.2500, L100.0100 ####[facility] [address] [place], [address] Sodium [Moles/Vol] 138 mmol/L Normal 136-145 [facility] Comment on above: Performed By: #### L 501.5200, L500.2500, L100.0100 ####[facility] [address] [place], [address] Urea nitrogen [Mass/Vol] 11 mg/dL Normal 7-18 [facility] Comment on above: Performed By: #### L 501.5200, L500.2500, L100.0100 ####[facility] [address] [place], [address] CBC W/Diff, Automatedon 09-2 0-3 Absolute Lymph 0.70 X10 3/uL Low 0.83-4.51 [facility] Comment on above: Performed By: #### L 501.5200, L500.2500, L100.0100 ####[facility] [address] [place], [address] Absolute Neut 5.4 X10 3/uL Normal 2.0-7.7 [facility] Comment on above: Performed By: #### L 501.5200, L500.2500, L100.0100 ####[facility] [address] [place], [address] Basophils/100 WBC (Bld) 0.1 % Normal 0-1 [facility] Comment on above: Performed By: #### L 501.5200, L500.2500, L100.0100 ####[facility] [address] [place], [address] Eosinophils/100 WBC (Bld) 0.1 % Normal 0-5 [facility] Comment on above: Performed By: #### L 501.5200, L500.2500, L100.0100 ####[facility] [address] [place], [address] Erythrocyte distribution width (RBC) [Ratio] 15.9 % High 11.6-14.6 [facility] Comment on above: Performed By: #### L 501.5200, L500.2500, L100.0100 ####[facility] [address] [place], [address] Hematocrit (Bld) [Volume fraction] 33.6 % Low 37-47 [facility] Comment on above: Performed By: #### L 501.5200, L500.2500, L100.0100 ####[facility] [address] [place], [address] Hemoglobin (Bld) [Mass/Vol] 10.4 g/dL Low 12.0-15.0 [facility] Comment on above: Performed By: #### L 501.5200, L500.2500, L100.0100 ####[facility] [address] [place], [address] IG% 1.000 High 0.0-0.9 [facility] Comment on above: Result Comment: IG% - Immature Granulocytes (promyelocytes, myelocytes andmetamyelocytes) > 1% indicates that a LEFT SHIFT is Present. Performed By: #### L 501.5200, L500.2500, L100.0100 ####[facility] [address] [place], [address] Lymphocytes/100 WBC (Bld) 10.2 % Low 19-41 [facility] Comment on above: Performed By: #### L 501.5200, L500.2500, L100.0100 ####[facility] [address] [place], [address] MCH (RBC) [Entitic mass] 27.2 pg Normal 27.0-32.0 [facility] Comment on above: Performed By: #### L 501.5200, L500.2500, L100.0100 ####[facility] [address] [place], [address] MCHC (RBC) [Mass/Vol] 31.0 g/dL Low 32-36 [facility] Comment on above: Performed By: #### L 501.5200, L500.2500, L100.0100 ####[facility] [address] [place], [address] MCV (RBC) [Entitic vol] 88.0 fL Normal 81-99 [facility] Comment on above: Performed By: #### L 501.5200, L500.2500, L100.0100 ####[facility] [address] [place], [address] Monocytes/100 WBC (Bld) 9.2 % Normal 0-10 [facility] Comment on above: Performed By: #### L 501.5200, L500.2500, L100.0100 ####[facility] [address] [place], [address] Neutrophils/100 WBC (Bld) 79.4 % High 47-70 [facility] Comment on above: Performed By: #### L 501.5200, L500.2500, L100.0100 ####[facility] [address] [place], [address] Nucleated RBC (Bld) [#/Vol] 0 10*3/uL Normal 0-5 [facility] Comment on above: Performed By: #### L 501.5200, L500.2500, L100.0100 ####[facility] [address] [place], [address] Platelet mean volume (Bld) [Entitic vol] 9.7 fL Normal 6.2-12.0 [facility] Comment on above: Performed By: #### L 501.5200, L500.2500, L100.0100 ####[facility] [address] [place], [address] Platelets (Bld) [#/Vol] 143 10*3/uL Low 150-450 [facility] Comment on above: Performed By: #### L 501.5200, L500.2500, L100.0100 ####[facility] [address] [place], [address] RBC (Bld) [#/Vol] 3.82 10*6/uL Low 4.2-5.4 [facility] Comment on above: Performed By: #### L 501.5200, L500.2500, L100.0100 ####[facility] [address] [place], [address] RDW SD 51.7 fl High 35.1-43.9 [facility] Comment on above: Performed By: #### L 501.5200, L500.2500, L100.0100 ####[facility] [address] [place], [address] WBC (Bld) [#/Vol] 6.8 10*3/uL Normal 4.4-11.0 [facility] Comment on above: Performed By: #### L 501.5200, L500.2500, L100.0100 ####[facility] [address] [place], [address] Consultation - Infectious Dx on 08-19-2023 Consultation - Infectious Dx Normal [facility] Laboratory - Chemistry and C hemistry - challengeOrdered By: Calderon Ware on 08-19-2023 Magnesium [Mass/Vol] 2.0 mg/dL 1.6-2.6 [facility] Magnesiumon 08-19-2023 Magnesium [Mass/Vol] 2.0 mg/dL Normal 1.6-2.6 [facility] Comment on above: Performed By: #### L 501.5200, L500.2500, L100.0100 ####[facility] [address] [place], [address] Basic Metabolic Profile (BMP )on 08-18-2023 BUN/CRE 21.0 RATIO High 10-20 [facility] Comment on above: Performed By: #### L 500.2500, L100.0100 ####[facility] [address] [place], [address] CA,Total 7.9 mg/dL Low 8.5-10.1 [facility] Comment on above: Performed By: #### L 500.2500, L100.0100 ####[facility] [address] [place], [address] Chloride [Moles/Vol] 105 mmol/L Normal 98-107 [facility] Comment on above: Performed By: #### L 500.2500, L100.0100 ####[facility] [address] [place], [address] CO2 [Moles/Vol] 28.0 mmol/L Normal 21.0-32.0 [facility] Comment on above: Performed By: #### L 500.2500, L100.0100 ####[facility] [address] [place], [address] Creatinine [Mass/Vol] 0.86 mg/dL Normal 0.55-1.02 [facility] Comment on above: Result Comment: The validity of the calculated GFR GFRAA in patients over70 years has not been determined. Clinical correlation isessential. Performed By: #### L 500.2500, L100.0100 ####[facility] [address] [place], [address] ECRCL 63.83 ml/min Normal [facility] Comment on above: Performed By: #### L 500.2500, L100.0100 ####[facility] [address] [place], [address] EST GFR - AA 88 mL/min Normal >60 [facility] Comment on above: Result Comment: Afri can [place] GFR Calc Performed By: #### L 500.2500, L100.0100 ####[facility] [address] [place], [address] GAP 4 Low 5-15 [facility] Comment on above: Performed By: #### L 500.2500, L100.0100 ####[facility] [address] [place], [address] GFR/1.73 sq M.predicted among non-blacks MDRD (S/P/Bld) [Vol rate/Area] 73 mL/min/{1.73_m2} Normal >60 [facility] Comment on above: Result Comment: Non- GFR Calc Performed By: #### L 500.2500, L100.0100 ####[facility] [address] [place], [address] Glucose [Mass/Vol] 99 mg/dL Normal 74-106 [facility] Comment on above: Performed By: #### L 500.2500, L100.0100 ####[facility] [address] [place], [address] Potassium [Moles/Vol] 4.1 mmol/L Normal 3.5-5.1 [facility] Comment on above: Performed By: #### L 500.2500, L100.0100 ####[facility] [address] [place], [address] Sodium [Moles/Vol] 137 mmol/L Normal 136-145 [facility] Comment on above: Performed By: #### L 500.2500, L100.0100 ####[facility] [address] [place], [address] Urea nitrogen [Mass/Vol] 18 mg/dL Normal 7-18 [facility] Comment on above: Performed By: #### L 500.2500, L100.0100 ####[facility] [address] [place], [address] Basophil percentageOrdered B y: Mandy Arce on 08-18-2023 Lactate [Moles/Vol] 1.1 mmol/L 0.4-2.0 [facility] Lactate [Moles/Vol] 2.4 mmol/L Invalid Interpretation Code 0.4-1.9 [facility] Comment on above: Critical Result(s) C alled at: 00:02:08 08/18/2023 by: Vladimir Ruth. to SATHYA (RN) (ED) Results read back by same. Order Comment: Y Result Comment: Crit ical Result(s) Called at: 00:02:08 08/18/2023 by: Zheng. to SATHYA (RN) (ED) Results read back by same. Performed By: #### L 503.6005, L300.4310, L300.3900 ####[facility] [address] [place], [address] CBC W/Diff, Automatedon 07-31 Absolute Lymph 0.71 X10 3/uL Low 0.83-4.51 [facility] Comment on above: Performed By: #### L 500.2500, L100.0100 ####[facility] [address] [place], [address] Absolute Neut 14.4 X10 3/uL High 2.0-7.7 [facility] Comment on above: Performed By: #### L 500.2500, L100.0100 ####[facility] [address] [place], [address] Basophils/100 WBC (Bld) 0.1 % Normal 0-1 [facility] Comment on above: Performed By: #### L 500.2500, L100.0100 ####[facility] [address] [place], [address] Eosinophils/100 WBC (Bld) 0.0 % Normal 0-5 [facility] Comment on above: Performed By: #### L 500.2500, L100.0100 ####[facility] [address] [place], [address] Erythrocyte distribution width (RBC) [Ratio] 15.4 % High 11.6-14.6 [facility] Comment on above: Performed By: #### L 500.2500, L100.0100 ####[facility] [address] [place], [address] Hematocrit (Bld) [Volume fraction] 35.3 % Low 37-47 [facility] Comment on above: Performed By: #### L 500.2500, L100.0100 ####[facility] [address] [place], [address] Hemoglobin (Bld) [Mass/Vol] 11.0 g/dL Low 12.0-15.0 [facility] Comment on above: Performed By: #### L 500.2500, L100.0100 ####[facility] [address] [place], [address] IG% 1.000 High 0.0-0.9 [facility] Comment on above: Result Comment: IG% - Immature Granulocytes (promyelocytes, myelocytes andmetamyelocytes) > 1% indicates that a LEFT SHIFT is Present. Performed By: #### L 500.2500, L100.0100 ####[facility] [address] [place], [address] Lymphocytes/100 WBC (Bld) 4.5 % Low 19-41 [facility] Comment on above: Performed By: #### L 500.2500, L100.0100 ####[facility] [address] [place], [address] MCH (RBC) [Entitic mass] 27.3 pg Normal 27.0-32.0 [facility] Comment on above: Performed By: #### L 500.2500, L100.0100 ####[facility] [address] [place], [address] MCHC (RBC) [Mass/Vol] 31.2 g/dL Low 32-36 [facility] Comment on above: Performed By: #### L 500.2500, L100.0100 ####[facility] [address] [place], [address] MCV (RBC) [Entitic vol] 87.6 fL Normal 81-99 [facility] Comment on above: Performed By: #### L 500.2500, L100.0100 ####[facility] [address] [place], [address] Monocytes/100 WBC (Bld) 3.6 % Normal 0-10 [facility] Comment on above: Performed By: #### L 500.2500, L100.0100 ####[facility] [address] [place], [address] Neutrophils/100 WBC (Bld) 90.8 % High 47-70 [facility] Comment on above: Performed By: #### L 500.2500, L100.0100 ####[facility] [address] [place], [address] Nucleated RBC (Bld) [#/Vol] 0 10*3/uL Normal 0-5 [facility] Comment on above: Performed By: #### L 500.2500, L100.0100 ####[facility] [address] [place], [address] Platelet mean volume (Bld) [Entitic vol] 9.7 fL Normal 6.2-12.0 [facility] Comment on above: Performed By: #### L 500.2500, L100.0100 ####[facility] [address] [place], [address] Platelets (Bld) [#/Vol] 165 10*3/uL Normal 150-450 [facility] Comment on above: Performed By: #### L 500.2500, L100.0100 ####[facility] [address] [place], [address] RBC (Bld) [#/Vol] 4.03 10*6/uL Low 4.2-5.4 [facility] Comment on above: Performed By: #### L 500.2500, L100.0100 ####[facility] [address] [place], [address] RDW SD 49.7 fl High 35.1-43.9 [facility] Comment on above: Performed By: #### L 500.2500, L100.0100 ####[facility] [address] [place], [address] WBC (Bld) [#/Vol] 15.8 10*3/uL High 4.4-11.0 [facility] Comment on above: Performed By: #### L 500.2500, L100.0100 ####[facility] [address] [place], [address] Lactic Acidon 08-18-2023 Lactate [Moles/Vol] 1.1 mmol/L Normal 0.4-1.9 [facility] Comment on above: Performed By: #### L 503.6005 ####[facility] [address] [place], [address] 12 Lead EKGon 08-17-2023 12 Lead EKG Normal [facility] Absolute lymphocyte countOrd ered By: Mandy Arce on 08-17-2023 Lymphocytes Auto (Unsp spec) [#/Vol] 0.54 10*3/uL 0.83-4.51 [facility] Basophil percentageOrdered B y: Mandy Arce on 08-17-2023 Bilirubin [Mass/Vol] 0.40 mg/dL Normal 0.20-1.00 [facility] Comment on above: For patients on eltr ombopag therapy, use of [facility] [place] TBIL is not recommended. Result Comment: For patients on eltrombopag therapy, use of [facility] [place] TBIL is not recommended. Performed By: #### L 500.4050, L501.6710, L100.0100, L101.9900 ####[facility] [address] [place], [address] Chloride [Moles/Vol] 103 mmol/L Normal 98-107 [facility] Comment on above: Performed By: #### L 500.4050, L501.6710, L100.0100, L101.9900 ####[facility] [address] [place], [address] Glucose [Mass/Vol] 101 mg/dL Normal 74-106 [facility] Comment on above: Fasting Glucose resu lt from 100 to 125 mg/dL suggests IMPAIRED HOMEOSTASIS per A.D.A. criteria. Result Comment: Fast ing Glucose result from 100 to 125 mg/dLsuggests IMPAIRED HOMEOSTASIS per A.D.A. criteria. Performed By: #### L 500.4050, L501.6710, L100.0100, L101.9900 ####[facility] [address] [place], [address] Potassium [Moles/Vol] 4.6 mmol/L Normal 3.5-5.1 [facility] Comment on above: Performed By: #### L 500.4050, L501.6710, L100.0100, L101.9900 ####[facility] [address] [place], [address] Sodium [Moles/Vol] 136 mmol/L Normal 136-145 [facility] Comment on above: Performed By: #### L 500.4050, L501.6710, L100.0100, L101.9900 ####[facility] [address] [place], [address] Basophils/100 WBC (Bld) 0.1 % 0-1 [facility] Eosinophils/100 WBC (Bld) 0.0 % 0-5 [facility] Neutrophils (Bld) [#/Vol] 15.3 10*3/uL 2.0-7.7 [facility] Neutrophils/100 WBC (Bld) 90.9 % 47-70 [facility] Protein [Mass/Vol] 7.6 g/dL 6.4-8.2 [facility] WBC (Bld) [#/Vol] 16.8 10*3/uL 4.4-11.0 [facility] Blood erythrocytes count (nu mber/volume)Ordered By: Mandy Arce on 08-17-2023 RBC (Bld) [#/Vol] 4.57 10*6/uL 4.2-5.4 [facility] Blood hemoglobin measurement (mass/volume)Ordered By: Mandy Arce on 08-17-2023 Hemoglobin (Bld) [Mass/Vol] 12.5 g/dL 12.0-15.0 [facility] Blood lymphocytes/100 leukoc ytesOrdered By: Mandy Arce on 08-17-2023 Lymphocytes/100 WBC (Bld) 3.2 % 19-41 [facility] Blood monocytes/100 leukocyt esOrdered By: Mandy Arce on 08-17-2023 Monocytes/100 WBC (Bld) 5.0 % 0-10 [facility] Blood platelet mean volumeOr dered By: Mandy Arce on 08-17-2023 Platelet mean volume (Bld) [Entitic vol] 10.0 fL 6.2-12.0 [facility] CBC W/Diff, AutomatedOrdered By: Mandy Arce on 08-17-2023 Anisocytosis Ql (Bld) 1+ Normal [facility] Comment on above: Performed By: #### L 500.4050, L501.6710, L100.0100, L101.9900 ####[facility] [address] [place], [address] CRPon 08-17-2023 C-REACTIVE PROT 53.20 mg/L High 0.0-3.0 [facility] Comment on above: Result Comment: C-Re active Protein (CRP) provides useful information for thediagnosis, therapy and monitoring of inflammatory processesand associated diseases. For the evaluation of Relative Riskfor Cardiovascular Disease, a High Sensitivity CRP (HSCRP)should be ordered. Performed By: #### L 500.4050, L501.6710, L100.0100, L101.9900 ####[facility] [address] [place], [address] Chest 1 View (Portable)on Chest 1 View (Portable) Normal [facility] Comprehensive Metabolic Prof ilon 08-17-2023 ALK P 81 U/L Normal 45-117 [facility] Comment on above: Performed By: #### L 500.4050, L501.6710, L100.0100, L101.9900 ####[facility] [address] [place], [address] AST [Catalytic activity/Vol] 15 U/L Normal 15-37 [facility] Comment on above: Performed By: #### L 500.4050, L501.6710, L100.0100, L101.9900 ####[facility] [address] [place], [address] BUN/CRE 21.8 RATIO High 10-20 [facility] Comment on above: Performed By: #### L 500.4050, L501.6710, L100.0100, L101.9900 ####[facility] [address] [place], [address] CA,Total 8.8 mg/dL Normal 8.5-10.1 [facility] Comment on above: Performed By: #### L 500.4050, L501.6710, L100.0100, L101.9900 ####[facility] [address] [place], [address] EST GFR - AA 82 mL/min Normal >60 [facility] Comment on above: Result Comment: Afri can [place] GFR Calc Performed By: #### L 500.4050, L501.6710, L100.0100, L101.9900 ####[facility] [address] [place], [address] GAP 4 Low 5-15 [facility] Comment on above: Performed By: #### L 500.4050, L501.6710, L100.0100, L101.9900 ####[facility] [address] [place], [address] GFR/1.73 sq M.predicted among non-blacks MDRD (S/P/Bld) [Vol rate/Area] 68 mL/min/{1.73_m2} Normal >60 [facility] Comment on above: Result Comment: Non- GFR Calc Performed By: #### L 500.4050, L501.6710, L100.0100, L101.9900 ####[facility] [address] [place], [address] T PROT 7.6 g/dL Normal 6.4-8.2 [facility] Comment on above: Performed By: #### L 500.4050, L501.6710, L100.0100, L101.9900 ####[facility] [address] [place], [address] Comprehensive Metabolic Prof ilOrdered By: Mandy Arce on 08-17-2023 ALT [Catalytic activity/Vol] 19 U/L Normal 13-56 [facility] Comment on above: Performed By: #### L 500.4050, L501.6710, L100.0100, L101.9900 ####[facility] [address] [place], [address] CO2 [Moles/Vol] 29.0 mmol/L Normal 21.0-32.0 [facility] Comment on above: Performed By: #### L 500.4050, L501.6710, L100.0100, L101.9900 ####[facility] [address] [place], [address] Globulin (S) [Mass/Vol] 4.3 g/dL High 2.2-4.2 [facility] Comment on above: Performed By: #### L 500.4050, L501.6710, L100.0100, L101.9900 ####[facility] [address] [place], [address] Determination of erythrocyte mean corpuscular volume (MCV)Ordered By: Mandy Arce on 08-17-2023 MCV (RBC) [Entitic vol] 87.3 fL 81-99 [facility] Emergency Department Summary on 08-17-2023 Emergency Department Summary Normal [facility] Erythrocyte Sed Rateon 08-17 SED RATE 28 mm/hr Normal 0-30 [facility] Comment on above: Performed By: #### L 500.4050, L501.6710, L100.0100, L101.9900 ####[facility] [address] [place], [address] Erythrocyte sedimentation ra teOrdered By: Mandy Arce on 08-17-2023 ESR (Bld) [Velocity] 28 mm/h 0-30 [facility] Hematocrit Auto (Bld) [Volum e fraction]Ordered By: Mandy Arce on 08-17-2023 Hematocrit (Bld) [Volume fraction] 39.9 % 37-47 [facility] INR in Blood by Coagulation assayOrdered By: Mandy Arce on 08-17-2023 INR Coag (Bld) [Relative time] 1.0 {INR} [facility] Laboratory - Chemistry and C hemistry - challengeOrdered By: Mandy Arce on 08-17-2023 ALP [Catalytic activity/Vol] 81 U/L 45-117 [facility] Urea nitrogen/Creatinine [Mass ratio] 21.8 mg/mg 10-20 [facility] Laboratory - Hematology and Cell countsOrdered By: Mandy Arce on 08-17-2023 Erythrocyte distribution width (RBC) [Entitic vol] 48.9 fL 35.1-43.9 [facility] Erythrocyte distribution width (RBC) [Ratio] 15.3 % 11.6-14.6 [facility] Immature granulocytes/100 WBC (Bld) 0.800 % 0.0-0.9 [facility] Comment on above: IG% - Immature Granu locytes (promyelocytes, myelocytes and metamyelocytes) > 1% indicates that a LEFT SHIFT is Present. MCH (RBC) [Entitic mass] 27.4 pg 27.0-32.0 [facility] Nucleated RBC/100 WBC (Bld) [Ratio] 0 % 0-5 [facility] MCHC Auto (RBC) [Mass/Vol]Or dered By: Mandy Arce on 08-17-2023 MCHC (RBC) [Mass/Vol] 31.3 g/dL 32-36 [facility] No Panel InformationOrdered By: Mandy Arce on 08-17-2023 Estimated GFR (MDRD) Amer 82 mL/min >60 [facility] Comment on above: GFR Calc Estimated GFR (MDRD) Non-Af Amer 68 mL/min >60 [facility] Comment on above: Non- GFR Calc Partial Thromboplast TimeOrd ered By: Mandy Arce on 08-17-2023 aPTT Coag (Bld) [Time] 32.0 s Normal 24.1-36.2 [facility] Comment on above: Performed By: #### L 503.6005, L300.4310, L300.3900 ####[facility] [address] [place], [address] Platelets bldOrdered By: Nani Arce on 08-17-2023 Platelets (Bld) [#/Vol] 190 10*3/uL 150-450 [facility] Prothrombin Time w/INRon INR Coag (PPP) [Relative time] 1.0 {INR} Normal [facility] Comment on above: Performed By: #### L 503.6005, L300.4310, L300.3900 ####[facility] [address] [place], [address] Prothrombin Time w/INROrdere d By: Mandy Arce on 08-17-2023 PT Coag (PPP) [Time] 12.9 s Normal 11.7-14.9 [facility] Comment on above: Performed By: #### L 503.6005, L300.4310, L300.3900 ####[facility] [address] [place], [address] Serum or plasma C reactive p rotein measurement (mass/volume)Ordered By: Mandy Arce on 08-17-2023 CRP [Mass/Vol] 53.20 mg/L 0.0-3.0 [facility] Comment on above: C-Reactive Protein ( CRP) provides useful information for thediagnosis, therapy and monitoring of inflammatory processesand associated diseases. For the evaluation of Relative Riskfor Cardiovascular Disease, a High Sensitivity CRP (HSCRP)should be ordered. Serum or plasma albumin herson urement (mass/volume)Ordered By: Mandy Arce on 08-17-2023 Albumin [Mass/Vol] 3.3 g/dL Normal 3.2-5.0 [facility] Comment on above: Performed By: #### L 500.4050, L501.6710, L100.0100, L101.9900 ####[facility] [address] [place], [address] Serum or plasma albumin/glob ulin mass ratioOrdered By: Mandy Arce on 08-17-2023 Albumin/Globulin [Mass ratio] 0.8 {ratio} Low 0.9-2.4 [facility] Comment on above: Performed By: #### L 500.4050, L501.6710, L100.0100, L101.9900 ####[facility] [address] [place], [address] Serum or plasma calcium herson urement (mass/volume)Ordered By: Mandy Arce on 08-17-2023 Calcium [Mass/Vol] 8.8 mg/dL 8.5-10.1 [facility] Serum or plasma creatinine m easurement (mass/volume)Ordered By: Mandy Arce on 08-17-2023 Creatinine [Mass/Vol] 0.92 mg/dL Normal 0.55-1.02 [facility] Comment on above: The validity of the calculated GFR & GFRAA in patients over 70 years has not been determined. Clinical correlation is essential. Result Comment: The validity of the calculated GFR GFRAA in patients over70 years has not been determined. Clinical correlation isessential. Performed By: #### L 500.4050, L501.6710, L100.0100, L101.9900 ####[facility] [address] [place], [address] Serum or plasma urea nitroge n measurement (mass/volume)Ordered By: Mandy Arce on 08-17-2023 Urea nitrogen [Mass/Vol] 20 mg/dL High 06-16 [facility] Comment on above: Performed By: #### L 500.4050, L501.6710, L100.0100, L101.9900 ####[facility] [address] [place], [address] Thin prep Papanicolaou smear with manual screeningOrdered By: Mandy Arce on 08-17-2023 Thin prep Papanicolaou smear with manual screening 15 U/L 15-37 [facility] Thin prep Papanicolaou smear with manual screening 4 5-15 [facility] Urinalysis, Completeon 08-17 BACTERIA Normal None Seen [facility] Comment on above: Order Comment: DYLAN FAIRCHILDOR TO SPECIFY Result Comment: Canc elled via OM: MD Ordered Performed By: #### L 400.0001 ####[facility] [address] [place], [address] BILIRUBIN URINE Normal Negative [facility] Comment on above: Order Comment: DYLAN CTOR TO SPECIFY Result Comment: Canc elled via OM: MD Ordered Performed By: #### L 400.0001 ####[facility] [address] [place], [address] Clarity (U) Normal Clear [facility] Comment on above: Order Comment: DYLAN CTOR TO SPECIFY Result Comment: Canc elled via OM: MD Ordered Performed By: #### L 400.0001 ####[facility] [address] [place], [address] Color (U) Normal Yellow [facility] Comment on above: Order Comment: DYLAN CTOR TO SPECIFY Result Comment: Canc elled via OM: MD Ordered Performed By: #### L 400.0001 ####[facility] [address] [place], [address] EPI,SQUAMOUS Normal 5-10 [facility] Comment on above: Order Comment: DYLAN FAIRCHILDOR TO SPECIFY Result Comment: Canc elled via OM: MD Ordered Performed By: #### L 400.0001 ####[facility] [address] [place], [address] GLUCOSE, UR Normal Normal [facility] Comment on above: Order Comment: DYLAN CTOR TO SPECIFY Result Comment: Canc elled via OM: MD Ordered Performed By: #### L 400.0001 ####[facility] [address] [place], [address] KETONE UR Normal Negative [facility] Comment on above: Order Comment: DYLAN FAIRCHILDOR TO SPECIFY Result Comment: Canc elled via OM: MD Ordered Performed By: #### L 400.0001 ####[facility] [address] [place], [address] LEUK ESTERASE Normal Negative [facility] Comment on above: Order Comment: DYLAN CTOR TO SPECIFY Result Comment: Canc elled via OM: MD Ordered Performed By: #### L 400.0001 ####[facility] [address] [place], [address] Mucus Ql (Urine sed) Normal [facility] Comment on above: Order Comment: DYLAN CTOR TO SPECIFY Result Comment: Canc elled via OM: MD Ordered Performed By: #### L 400.0001 ####[facility] [address] [place], [address] Nitrite Ql (U) Normal Negative [facility] Comment on above: Order Comment: DYLAN CTOR TO SPECIFY Result Comment: Canc elled via OM: MD Ordered Performed By: #### L 400.0001 ####[facility] [address] [place], [address] OCCULT BLOOD-UR Normal Negative [facility] Comment on above: Order Comment: DYLAN CTOR TO SPECIFY Result Comment: Canc elled via OM: MD Ordered Performed By: #### L 400.0001 ####[facility] [address] [place], [address] pH UR Normal 5.0 - 8.0 [facility] Comment on above: Order Comment: DYLAN CTOR TO SPECIFY Result Comment: Canc elled via OM: MD Ordered Performed By: #### L 400.0001 ####[facility] [address] [place], [address] PROT DIPSTX Normal Negative [facility] Comment on above: Order Comment: COLLE CTOR TO SPECIFY Result Comment: Canc elled via OM: MD Ordered Performed By: #### L 400.0001 ####[facility] [address] [place], [address] RBC Normal 0-5 [facility] Comment on above: Order Comment: COLLE CTOR TO SPECIFY Result Comment: Canc elled via OM: MD Ordered Performed By: #### L 400.0001 ####[facility] [address] [place], [address] SP.GR. DIPSTX Normal 1.002-1.030 [facility] Comment on above: Order Comment: COLLE CTOR TO SPECIFY Result Comment: Canc elled via OM: MD Ordered Performed By: #### L 400.0001 ####[facility] [address] [place], [address] UR Preservative Normal [facility] Comment on above: Order Comment: COLLE CTOR TO SPECIFY Result Comment: Canc elled via OM: MD Ordered Performed By: #### L 400.0001 ####[facility] [address] [place], [address] UROBILI Normal Normal [facility] Comment on above: Order Comment: COLLE CTOR TO SPECIFY Result Comment: Canc elled via OM: MD Ordered Performed By: #### L 400.0001 ####[facility] [address] [place], [address] WBC Normal 0-5 [facility] Comment on above: Order Comment: COLLE CTOR TO SPECIFY Result Comment: Canc elled via OM: MD Ordered Performed By: #### L 400.0001 ####[facility] [address] [place], [address] Basic Metabolic Profile (BMP )on 08-02-2023 BUN Normal 7-18 [facility] Comment on above: Result Comment: Canc elled via OM: Order cancelled - Patient discharged Performed By: #### L 500.2500, L100.0100 ####[facility] [address] [place], [address] BUN/CRE Normal 10-20 [facility] Comment on above: Result Comment: Canc elled via OM: Order cancelled - Patient discharged Performed By: #### L 500.2500, L100.0100 ####[facility] [address] [place], [address] CA,Total Normal 8.5-10.1 [facility] Comment on above: Result Comment: Canc elled via OM: Order cancelled - Patient discharged Performed By: #### L 500.2500, L100.0100 ####[facility] [address] [place], [address] CL Normal 98-107 [facility] Comment on above: Result Comment: Canc elled via OM: Order cancelled - Patient discharged Performed By: #### L 500.2500, L100.0100 ####[facility] [address] [place], [address] CO2 Normal 21.0-32.0 [facility] Comment on above: Result Comment: Canc elled via OM: Order cancelled - Patient discharged Performed By: #### L 500.2500, L100.0100 ####[facility] [address] [place], [address] CREAT,SERUM Normal 0.55-1.02 [facility] Comment on above: Result Comment: Canc elled via OM: Order cancelled - Patient discharged Performed By: #### L 500.2500, L100.0100 ####[facility] [address] [place], [address] EST GFR Normal >60 [facility] Comment on above: Result Comment: Canc elled via OM: Order cancelled - Patient discharged Performed By: #### L 500.2500, L100.0100 ####[facility] [address] [place], [address] EST GFR - AA Normal >60 [facility] Comment on above: Result Comment: Canc elled via OM: Order cancelled - Patient discharged Performed By: #### L 500.2500, L100.0100 ####[facility] [address] [place], [address] GAP Normal 5-15 [facility] Comment on above: Result Comment: Canc elled via OM: Order cancelled - Patient discharged Performed By: #### L 500.2500, L100.0100 ####[facility] [address] [place], [address] GLU Normal 74-106 [facility] Comment on above: Result Comment: Canc elled via OM: Order cancelled - Patient discharged Performed By: #### L 500.2500, L100.0100 ####[facility] [address] [place], [address] Potassium Normal 3.5-5.1 [facility] Comment on above: Result Comment: Canc elled via OM: Order cancelled - Patient discharged Performed By: #### L 500.2500, L100.0100 ####[facility] [address] [place], [address] Basic Metabolic Profile (BMP) Normal 136-145 [facility] Comment on above: Result Comment: Canc elled via OM: Order cancelled - Patient discharged Performed By: #### L 500.2500, L100.0100 ####[facility] [address] [place], [address] CBC W/Diff, Automatedon 09-0 Absolute Neut Normal 2.0-7.7 [facility] Comment on above: Result Comment: Canc elled via OM: Order cancelled - Patient discharged Performed By: #### L 500.2500, L100.0100 ####[facility] [address] [place], [address] HCT Normal 37-47 [facility] Comment on above: Result Comment: Canc elled via OM: Order cancelled - Patient discharged Performed By: #### L 500.2500, L100.0100 ####[facility] [address] [place], [address] HGB Normal 12.0-15.0 [facility] Comment on above: Result Comment: Canc elled via OM: Order cancelled - Patient discharged Performed By: #### L 500.2500, L100.0100 ####[facility] [address] [place], [address] MCH Normal 27.0-32.0 [facility] Comment on above: Result Comment: Canc elled via OM: Order cancelled - Patient discharged Performed By: #### L 500.2500, L100.0100 ####[facility] [address] [place], [address] MCHC Normal 32-36 [facility] Comment on above: Result Comment: Canc elled via OM: Order cancelled - Patient discharged Performed By: #### L 500.2500, L100.0100 ####[facility] [address] [place], [address] MCV Normal 81-99 [facility] Comment on above: Result Comment: Canc elled via OM: Order cancelled - Patient discharged Performed By: #### L 500.2500, L100.0100 ####[facility] [address] [place], [address] NEUT% Normal 47-70 [facility] Comment on above: Result Comment: Canc elled via OM: Order cancelled - Patient discharged Performed By: #### L 500.2500, L100.0100 ####[facility] [address] [place], [address] PLT Normal 150-450 [facility] Comment on above: Result Comment: Canc elled via OM: Order cancelled - Patient discharged Performed By: #### L 500.2500, L100.0100 ####[facility] [address] [place], [address] RBC Normal 4.2-5.4 [facility] Comment on above: Result Comment: Canc elled via OM: Order cancelled - Patient discharged Performed By: #### L 500.2500, L100.0100 ####[facility] [address] [place], [address] RDW CV Normal 11.6-14.6 [facility] Comment on above: Result Comment: Canc elled via OM: Order cancelled - Patient discharged Performed By: #### L 500.2500, L100.0100 ####[facility] [address] [place], [address] RDW SD Normal 35.1-43.9 [facility] Comment on above: Result Comment: Canc elled via OM: Order cancelled - Patient discharged Performed By: #### L 500.2500, L100.0100 ####[facility] [address] [place], [address] WBC Normal 4.4-11.0 [facility] Comment on above: Result Comment: Canc elled via OM: Order cancelled - Patient discharged Performed By: #### L 500.2500, L100.0100 ####[facility] [address] [place], [address] Basic Metabolic Profile (BMP )on 08-01-2023 BUN Normal 7-18 [facility] Comment on above: Result Comment: Canc elled via OM: Order cancelled - Patient discharged Performed By: #### L 500.2500, L100.0100 ####[facility] [address] [place], [address] BUN/CRE Normal 10-20 [facility] Comment on above: Result Comment: Canc elled via OM: Order cancelled - Patient discharged Performed By: #### L 500.2500, L100.0100 ####[facility] [address] [place], [address] CA,Total Normal 8.5-10.1 [facility] Comment on above: Result Comment: Canc elled via OM: Order cancelled - Patient discharged Performed By: #### L 500.2500, L100.0100 ####[facility] [address] [place], [address] CL Normal 98-107 [facility] Comment on above: Result Comment: Canc elled via OM: Order cancelled - Patient discharged Performed By: #### L 500.2500, L100.0100 ####[facility] [address] [place], [address] CO2 Normal 21.0-32.0 [facility] Comment on above: Result Comment: Canc elled via OM: Order cancelled - Patient discharged Performed By: #### L 500.2500, L100.0100 ####[facility] [address] [place], [address] CREAT,SERUM Normal 0.55-1.02 [facility] Comment on above: Result Comment: Canc elled via OM: Order cancelled - Patient discharged Performed By: #### L 500.2500, L100.0100 ####[facility] [address] [place], [address] EST GFR Normal >60 [facility] Comment on above: Result Comment: Canc elled via OM: Order cancelled - Patient discharged Performed By: #### L 500.2500, L100.0100 ####[facility] [address] [place], [address] EST GFR - AA Normal >60 [facility] Comment on above: Result Comment: Canc elled via OM: Order cancelled - Patient discharged Performed By: #### L 500.2500, L100.0100 ####[facility] [address] [place], [address] GAP Normal 5-15 [facility] Comment on above: Result Comment: Canc elled via OM: Order cancelled - Patient discharged Performed By: #### L 500.2500, L100.0100 ####[facility] [address] [place], [address] GLU Normal 74-106 [facility] Comment on above: Result Comment: Canc elled via OM: Order cancelled - Patient discharged Performed By: #### L 500.2500, L100.0100 ####[facility] [address] [place], [address] Potassium Normal 3.5-5.1 [facility] Comment on above: Result Comment: Canc elled via OM: Order cancelled - Patient discharged Performed By: #### L 500.2500, L100.0100 ####[facility] [address] [place], [address] Basic Metabolic Profile (BMP) Normal 136-145 [facility] Comment on above: Result Comment: Canc elled via OM: Order cancelled - Patient discharged Performed By: #### L 500.2500, L100.0100 ####[facility] [address] [place], [address] CBC W/Diff, Automatedon 09-0 -2022 Absolute Neut Normal 2.0-7.7 [facility] Comment on above: Result Comment: Canc elled via OM: Order cancelled - Patient discharged Performed By: #### L 500.2500, L100.0100 ####[facility] [address] [place], [address] HCT Normal 37-47 [facility] Comment on above: Result Comment: Canc elled via OM: Order cancelled - Patient discharged Performed By: #### L 500.2500, L100.0100 ####[facility] [address] [place], [address] HGB Normal 12.0-15.0 [facility] Comment on above: Result Comment: Canc elled via OM: Order cancelled - Patient discharged Performed By: #### L 500.2500, L100.0100 ####[facility] [address] [place], [address] MCH Normal 27.0-32.0 [facility] Comment on above: Result Comment: Canc elled via OM: Order cancelled - Patient discharged Performed By: #### L 500.2500, L100.0100 ####[facility] [address] [place], [address] MCHC Normal 32-36 [facility] Comment on above: Result Comment: Canc elled via OM: Order cancelled - Patient discharged Performed By: #### L 500.2500, L100.0100 ####[facility] [address] [place], [address] MCV Normal 81-99 [facility] Comment on above: Result Comment: Canc elled via OM: Order cancelled - Patient discharged Performed By: #### L 500.2500, L100.0100 ####[facility] [address] [place], [address] NEUT% Normal 47-70 [facility] Comment on above: Result Comment: Canc elled via OM: Order cancelled - Patient discharged Performed By: #### L 500.2500, L100.0100 ####[facility] [address] [place], [address] PLT Normal 150-450 [facility] Comment on above: Result Comment: Canc elled via OM: Order cancelled - Patient discharged Performed By: #### L 500.2500, L100.0100 ####[facility] [address] [place], [address] RBC Normal 4.2-5.4 [facility] Comment on above: Result Comment: Canc elled via OM: Order cancelled - Patient discharged Performed By: #### L 500.2500, L100.0100 ####[facility] [address] [place], [address] RDW CV Normal 11.6-14.6 [facility] Comment on above: Result Comment: Canc elled via OM: Order cancelled - Patient discharged Performed By: #### L 500.2500, L100.0100 ####[facility] [address] [place], [address] RDW SD Normal 35.1-43.9 [facility] Comment on above: Result Comment: Canc elled via OM: Order cancelled - Patient discharged Performed By: #### L 500.2500, L100.0100 ####[facility] [address] [place], [address] WBC Normal 4.4-11.0 [facility] Comment on above: Result Comment: Canc elled via OM: Order cancelled - Patient discharged Performed By: #### L 500.2500, L100.0100 ####[facility] [address] [place], [address] Absolute lymphocyte countOrd ered By: Betty Calvin on 07-31-2023 Lymphocytes Auto (Unsp spec) [#/Vol] 1.24 10*3/uL 0.83-4.51 [facility] Basic Metabolic Profile (BMP )on 07-31-2023 BUN/CRE 17.4 RATIO Normal 10-20 [facility] Comment on above: Performed By: #### L 100.0100, L500.2500 ####[facility] [address] [place], [address] CA,Total 9.0 mg/dL Normal 8.5-10.1 [facility] Comment on above: Performed By: #### L 100.0100, L500.2500 ####[facility] [address] [place], [address] Chloride [Moles/Vol] 106 mmol/L Normal 98-107 [facility] Comment on above: Performed By: #### L 100.0100, L500.2500 ####[facility] [address] [place], [address] CO2 [Moles/Vol] 28.0 mmol/L Normal 21.0-32.0 [facility] Comment on above: Performed By: #### L 100.0100, L500.2500 ####[facility] [address] [place], [address] Creatinine [Mass/Vol] 0.86 mg/dL Normal 0.55-1.02 [facility] Comment on above: Result Comment: The validity of the calculated GFR GFRAA in patients over70 years has not been determined. Clinical correlation isessential. Performed By: #### L 100.0100, L500.2500 ####[facility] [address] [place], [address] ECRCL 63.83 ml/min Normal [facility] Comment on above: Performed By: #### L 100.0100, L500.2500 ####[facility] [address] [place], [address] EST GFR - AA 88 mL/min Normal >60 [facility] Comment on above: Result Comment: Afri can [place] GFR Calc Performed By: #### L 100.0100, L500.2500 ####[facility] [address] [place], [address] GAP 5 Normal 5-15 [facility] Comment on above: Performed By: #### L 100.0100, L500.2500 ####[facility] [address] [place], [address] GFR/1.73 sq M.predicted among non-blacks MDRD (S/P/Bld) [Vol rate/Area] 73 mL/min/{1.73_m2} Normal >60 [facility] Comment on above: Result Comment: Non- GFR Calc Performed By: #### L 100.0100, L500.2500 ####[facility] [address] [place], [address] Glucose [Mass/Vol] 104 mg/dL Normal 74-106 [facility] Comment on above: Result Comment: Fast ing Glucose result from 100 to 125 mg/dLsuggests IMPAIRED HOMEOSTASIS per A.D.A. criteria. Performed By: #### L 100.0100, L500.2500 ####[facility] [address] [place], [address] Potassium [Moles/Vol] 4.2 mmol/L Normal 3.5-5.1 [facility] Comment on above: Performed By: #### L 100.0100, L500.2500 ####[facility] [address] [place], [address] Sodium [Moles/Vol] 139 mmol/L Normal 136-145 [facility] Comment on above: Performed By: #### L 100.0100, L500.2500 ####[facility] [address] [place], [address] Urea nitrogen [Mass/Vol] 15 mg/dL Normal 7-18 [facility] Comment on above: Performed By: #### L 100.0100, L500.2500 ####[facility] [address] [place], [address] Basophil percentageOrdered B y: Bettysim Calvin on 07-31-2023 Basophils/100 WBC (Bld) 0.2 % 0-1 [facility] Chloride [Moles/Vol] 106 mmol/L 98-107 [facility] Eosinophils/100 WBC (Bld) 0.2 % 0-5 [facility] Glucose [Mass/Vol] 104 mg/dL 74-106 [facility] Comment on above: Fasting Glucose resu lt from 100 to 125 mg/dL suggests IMPAIRED HOMEOSTASIS per A.D.A. criteria. Neutrophils (Bld) [#/Vol] 3.9 10*3/uL 2.0-7.7 [facility] Neutrophils/100 WBC (Bld) 66.9 % 47-70 [facility] Potassium [Moles/Vol] 4.2 mmol/L 3.5-5.1 [facility] Sodium [Moles/Vol] 139 mmol/L 136-145 [facility] WBC (Bld) [#/Vol] 5.8 10*3/uL 4.4-11.0 [facility] Blood erythrocytes count (nu mber/volume)Ordered By: Betty Calvin on 07-31-2023 RBC (Bld) [#/Vol] 4.12 10*6/uL 4.2-5.4 [facility] Blood hemoglobin measurement (mass/volume)Ordered By: Betty Calvin on 07-31-2023 Hemoglobin (Bld) [Mass/Vol] 11.1 g/dL 12.0-15.0 [facility] Blood lymphocytes/100 leukoc ytesOrdered By: Betty Calvin on 07-31-2023 Lymphocytes/100 WBC (Bld) 21.3 % 19-41 [facility] Blood monocytes/100 leukocyt esOrdered By: Betty Calvin on 07-31-2023 Monocytes/100 WBC (Bld) 9.3 % 0-10 [facility] Blood platelet mean volumeOr dered By: Betty Calvin on 07-31-2023 Platelet mean volume (Bld) [Entitic vol] 9.3 fL 6.2-12.0 [facility] CBC W/Diff, Automatedon Absolute Lymph 1.24 X10 3/uL Normal 0.83-4.51 [facility] Comment on above: Performed By: #### L 100.0100, L500.2500 ####[facility] [address] [place], [place], [address] Absolute Neut 3.9 X10 3/uL Normal 2.0-7.7 [facility] Comment on above: Performed By: #### L 100.0100, L500.2500 ####[facility] [address] [place], [address] Basophils/100 WBC (Bld) 0.2 % Normal 0-1 [facility] Comment on above: Performed By: #### L 100.0100, L500.2500 ####[facility] [address] [place], [address] Eosinophils/100 WBC (Bld) 0.2 % Normal 0-5 [facility] Comment on above: Performed By: #### L 100.0100, L500.2500 ####[facility] [address] [place], [address] Erythrocyte distribution width (RBC) [Ratio] 14.9 % High 11.6-14.6 [facility] Comment on above: Performed By: #### L 100.0100, L500.2500 ####[facility] [address] [place], [address] Hematocrit (Bld) [Volume fraction] 35.9 % Low 37-47 [facility] Comment on above: Performed By: #### L 100.0100, L500.2500 ####[facility] [address] [place], [address] Hemoglobin (Bld) [Mass/Vol] 11.1 g/dL Low 12.0-15.0 [facility] Comment on above: Performed By: #### L 100.0100, L500.2500 ####[facility] [address] [place], [address] IG% 2.100 High 0.0-0.9 [facility] Comment on above: Result Comment: IG% - Immature Granulocytes (promyelocytes, myelocytes andmetamyelocytes) > 1% indicates that a LEFT SHIFT is Present. Performed By: #### L 100.0100, L500.2500 ####[facility] [address] [place], [address] Lymphocytes/100 WBC (Bld) 21.3 % Normal 19-41 [facility] Comment on above: Performed By: #### L 100.0100, L500.2500 ####[facility] [address] [place], [address] MCH (RBC) [Entitic mass] 26.9 pg Low 27.0-32.0 [facility] Comment on above: Performed By: #### L 100.0100, L500.2500 ####[facility] [address] [place], [address] MCHC (RBC) [Mass/Vol] 30.9 g/dL Low 32-36 [facility] Comment on above: Performed By: #### L 100.0100, L500.2500 ####[facility] [address] [place], [address] MCV (RBC) [Entitic vol] 87.1 fL Normal 81-99 [facility] Comment on above: Performed By: #### L 100.0100, L500.2500 ####[facility] [address] [place], [address] Monocytes/100 WBC (Bld) 9.3 % Normal 0-10 [facility] Comment on above: Performed By: #### L 100.0100, L500.2500 ####[facility] [address] [place], [address] Neutrophils/100 WBC (Bld) 66.9 % Normal 47-70 [facility] Comment on above: Performed By: #### L 100.0100, L500.2500 ####[facility] [address] [place], [address] Nucleated RBC (Bld) [#/Vol] 0 10*3/uL Normal 0-5 [facility] Comment on above: Performed By: #### L 100.0100, L500.2500 ####[facility] [address] [place], [address] Platelet mean volume (Bld) [Entitic vol] 9.3 fL Normal 6.2-12.0 [facility] Comment on above: Performed By: #### L 100.0100, L500.2500 ####[facility] [address] [place], [address] Platelets (Bld) [#/Vol] 208 10*3/uL Normal 150-450 [facility] Comment on above: Performed By: #### L 100.0100, L500.2500 ####[facility] [address] [place], [address] RBC (Bld) [#/Vol] 4.12 10*6/uL Low 4.2-5.4 [facility] Comment on above: Performed By: #### L 100.0100, L500.2500 ####[facility] [address] [place], [address] RDW SD 47.3 fl High 35.1-43.9 [facility] Comment on above: Performed By: #### L 100.0100, L500.2500 ####[facility] [address] [place], [address] WBC (Bld) [#/Vol] 5.8 10*3/uL Normal 4.4-11.0 [facility] Comment on above: Performed By: #### L 100.0100, L500.2500 ####[facility] [address] [place], [address] Determination of erythrocyte mean corpuscular volume (MCV)Ordered By: Betty Calvin on 07-31-2023 MCV (RBC) [Entitic vol] 87.1 fL 81-99 [facility] Discharge Instructionon 09-0 Discharge Instruction Normal [facility] Hematocrit Auto (Bld) [Volum e fraction]Ordered By: Betty Calvin on 07-31-2023 Hematocrit (Bld) [Volume fraction] 35.9 % 37-47 [facility] Laboratory - Chemistry and C hemistry - challengeOrdered By: Betty Calvin on 07-31-2023 CO2 [Moles/Vol] 28.0 mmol/L 21.0-32.0 [facility] Urea nitrogen/Creatinine [Mass ratio] 17.4 mg/mg 10-20 [facility] Laboratory - Hematology and Cell countsOrdered By: Betty Calvin on 07-31-2023 Erythrocyte distribution width (RBC) [Entitic vol] 47.3 fL 35.1-43.9 [facility] Erythrocyte distribution width (RBC) [Ratio] 14.9 % 11.6-14.6 [facility] Immature granulocytes/100 WBC (Bld) 2.100 % 0.0-0.9 [facility] Comment on above: IG% - Immature Granu locytes (promyelocytes, myelocytes and metamyelocytes) > 1% indicates that a LEFT SHIFT is Present. MCH (RBC) [Entitic mass] 26.9 pg 27.0-32.0 [facility] Nucleated RBC/100 WBC (Bld) [Ratio] 0 % 0-5 [facility] MCHC Auto (RBC) [Mass/Vol]Or dered By: Betty Calvin on 07-31-2023 MCHC (RBC) [Mass/Vol] 30.9 g/dL 32-36 [facility] No Panel InformationOrdered By: Betty Calvin on 07-31-2023 Estimated Creatinine Clearance Calc 63.83 ml/min [facility] Estimated GFR (MDRD) Amer 88 mL/min >60 [facility] Comment on above: GFR Calc Estimated GFR (MDRD) Non-Af Amer 73 mL/min >60 [facility] Comment on above: Non- GFR Calc Platelets bldOrdered By: Ira Calvin on 07-31-2023 Platelets (Bld) [#/Vol] 208 10*3/uL 150-450 [facility] Serum or plasma calcium herson urement (mass/volume)Ordered By: Betty Calvin on 07-31-2023 Calcium [Mass/Vol] 9.0 mg/dL 8.5-10.1 [facility] Serum or plasma creatinine m easurement (mass/volume)Ordered By: Betty Calvin on 07-31-2023 Creatinine [Mass/Vol] 0.86 mg/dL 0.55-1.02 [facility] Comment on above: The validity of the calculated GFR & GFRAA in patients over 70 years has not been determined. Clinical correlation is essential. Serum or plasma urea nitroge n measurement (mass/volume)Ordered By: Betty Calvin on 07-31-2023 Urea nitrogen [Mass/Vol] 15 mg/dL 7-18 [facility] Thin prep Papanicolaou smear with manual screeningOrdered By: Betty Calvin on 07-31-2023 Thin prep Papanicolaou smear with manual screening 5 5-15 [facility] Basic Metabolic Profile (BMP )on 07-30-2023 BUN/CRE 16.4 RATIO Normal 10-20 [facility] Comment on above: Performed By: #### L 501.6710, L100.0100, L500.2500, L101.9900 ####[facility] [address] [place], [address] CA,Total 8.9 mg/dL Normal 8.5-10.1 [facility] Comment on above: Performed By: #### L 501.6710, L100.0100, L500.2500, L101.9900 ####[facility] [address] [place], [address] Chloride [Moles/Vol] 107 mmol/L Normal 98-107 [facility] Comment on above: Performed By: #### L 501.6710, L100.0100, L500.2500, L101.9900 ####[facility] [address] [place], [address] CO2 [Moles/Vol] 29.0 mmol/L Normal 21.0-32.0 [facility] Comment on above: Performed By: #### L 501.6710, L100.0100, L500.2500, L101.9900 ####[facility] [address] [place], [address] Creatinine [Mass/Vol] 0.79 mg/dL Normal 0.55-1.02 [facility] Comment on above: Result Comment: The validity of the calculated GFR GFRAA in patients over70 years has not been determined. Clinical correlation isessential. Performed By: #### L 501.6710, L100.0100, L500.2500, L101.9900 ####[facility] [address] [place], [address] ECRCL 69.48 ml/min Normal [facility] Comment on above: Performed By: #### L 501.6710, L100.0100, L500.2500, L101.9900 ####[facility] [address] [place], [address] EST GFR - AA 97 mL/min Normal >60 [facility] Comment on above: Result Comment: Afri can [place] GFR Calc Performed By: #### L 501.6710, L100.0100, L500.2500, L101.9900 ####[facility] [address] [place], [address] GAP 3 Low 5-15 [facility] Comment on above: Performed By: #### L 501.6710, L100.0100, L500.2500, L101.9900 ####[facility] [address] [place], [address] GFR/1.73 sq M.predicted among non-blacks MDRD (S/P/Bld) [Vol rate/Area] 80 mL/min/{1.73_m2} Normal >60 [facility] Comment on above: Result Comment: Non- GFR Calc Performed By: #### L 501.6710, L100.0100, L500.2500, L101.9900 ####[facility] [address] [place], [address] Glucose [Mass/Vol] 107 mg/dL High 74-106 [facility] Comment on above: Result Comment: Fast ing Glucose result from 100 to 125 mg/dLsuggests IMPAIRED HOMEOSTASIS per A.D.A. criteria. Performed By: #### L 501.6710, L100.0100, L500.2500, L101.9900 ####[facility] [address] [place], [address] Potassium [Moles/Vol] 4.2 mmol/L Normal 3.5-5.1 [facility] Comment on above: Performed By: #### L 501.6710, L100.0100, L500.2500, L101.9900 ####[facility] [address] [place], [address] Sodium [Moles/Vol] 139 mmol/L Normal 136-145 [facility] Comment on above: Performed By: #### L 501.6710, L100.0100, L500.2500, L101.9900 ####[facility] [address] [place], [address] Urea nitrogen [Mass/Vol] 13 mg/dL Normal 7-18 [facility] Comment on above: Performed By: #### L 501.6710, L100.0100, L500.2500, L101.9900 ####[facility] [address] [place], [address] CBC W/Diff, Automatedon 08-3 Absolute Lymph 1.23 X10 3/uL Normal 0.83-4.51 [facility] Comment on above: Performed By: #### L 501.6710, L100.0100, L500.2500, L101.9900 ####[facility] [address] [place], [address] Absolute Neut 3.9 X10 3/uL Normal 2.0-7.7 [facility] Comment on above: Performed By: #### L 501.6710, L100.0100, L500.2500, L101.9900 ####[facility] [address] [place], [address] Basophils/100 WBC (Bld) 0.3 % Normal 0-1 [facility] Comment on above: Performed By: #### L 501.6710, L100.0100, L500.2500, L101.9900 ####[facility] [address] [place], [address] Eosinophils/100 WBC (Bld) 0.2 % Normal 0-5 [facility] Comment on above: Performed By: #### L 501.6710, L100.0100, L500.2500, L101.9900 ####[facility] [address] [place], [address] Erythrocyte distribution width (RBC) [Ratio] 15.0 % High 11.6-14.6 [facility] Comment on above: Performed By: #### L 501.6710, L100.0100, L500.2500, L101.9900 ####[facility] [address] [place], [address] Hematocrit (Bld) [Volume fraction] 36.1 % Low 37-47 [facility] Comment on above: Performed By: #### L 501.6710, L100.0100, L500.2500, L101.9900 ####[facility] [address] [place], [address] Hemoglobin (Bld) [Mass/Vol] 11.0 g/dL Low 12.0-15.0 [facility] Comment on above: Performed By: #### L 501.6710, L100.0100, L500.2500, L101.9900 ####[facility] [address] [place], [address] IG% 1.700 High 0.0-0.9 [facility] Comment on above: Result Comment: IG% - Immature Granulocytes (promyelocytes, myelocytes andmetamyelocytes) > 1% indicates that a LEFT SHIFT is Present. Performed By: #### L 501.6710, L100.0100, L500.2500, L101.9900 ####[facility] [address] [place], [address] Lymphocytes/100 WBC (Bld) 20.6 % Normal 19-41 [facility] Comment on above: Performed By: #### L 501.6710, L100.0100, L500.2500, L101.9900 ####[facility] [address] [place], [address] MCH (RBC) [Entitic mass] 27.2 pg Normal 27.0-32.0 [facility] Comment on above: Performed By: #### L 501.6710, L100.0100, L500.2500, L101.9900 ####[facility] [address] [place], [address] MCHC (RBC) [Mass/Vol] 30.5 g/dL Low 32-36 [facility] Comment on above: Performed By: #### L 501.6710, L100.0100, L500.2500, L101.9900 ####[facility] [address] [place], [address] MCV (RBC) [Entitic vol] 89.4 fL Normal 81-99 [facility] Comment on above: Performed By: #### L 501.6710, L100.0100, L500.2500, L101.9900 ####[facility] [address] [place], [address] Monocytes/100 WBC (Bld) 11.2 % High 0-10 [facility] Comment on above: Performed By: #### L 501.6710, L100.0100, L500.2500, L101.9900 ####[facility] [address] [place], [address] Neutrophils/100 WBC (Bld) 66.0 % Normal 47-70 [facility] Comment on above: Performed By: #### L 501.6710, L100.0100, L500.2500, L101.9900 ####[facility] [address] [place], [address] Nucleated RBC (Bld) [#/Vol] 0 10*3/uL Normal 0-5 [facility] Comment on above: Performed By: #### L 501.6710, L100.0100, L500.2500, L101.9900 ####[facility] [address] [place], [address] Platelet mean volume (Bld) [Entitic vol] 9.4 fL Normal 6.2-12.0 [facility] Comment on above: Performed By: #### L 501.6710, L100.0100, L500.2500, L101.9900 ####[facility] [address] [place], [address] Platelets (Bld) [#/Vol] 184 10*3/uL Normal 150-450 [facility] Comment on above: Performed By: #### L 501.6710, L100.0100, L500.2500, L101.9900 ####[facility] [address] [place], [address] RBC (Bld) [#/Vol] 4.04 10*6/uL Low 4.2-5.4 [facility] Comment on above: Performed By: #### L 501.6710, L100.0100, L500.2500, L101.9900 ####[facility] [address] [place], [address] RDW SD 49.1 fl High 35.1-43.9 [facility] Comment on above: Performed By: #### L 501.6710, L100.0100, L500.2500, L101.9900 ####[facility] [address] [place], [address] WBC (Bld) [#/Vol] 6.0 10*3/uL Normal 4.4-11.0 [facility] Comment on above: Performed By: #### L 501.6710, L100.0100, L500.2500, L101.9900 ####[facility] [address] [place], [address] CRPon 07-30-2023 C-REACTIVE PROT 120.00 mg/L High 0.0-3.0 [facility] Comment on above: Result Comment: C-Re active Protein (CRP) provides useful information for thediagnosis, therapy and monitoring of inflammatory processesand associated diseases. For the evaluation of Relative Riskfor Cardiovascular Disease, a High Sensitivity CRP (HSCRP)should be ordered. Performed By: #### L 501.6710, L100.0100, L500.2500, L101.9900 ####[facility] [address] [place], [address] Erythrocyte Sed Rateon 07-30 SED RATE 55 mm/hr High 0-30 [facility] Comment on above: Performed By: #### L 501.6710, L100.0100, L500.2500, L101.9900 ####[facility] [address] [place], [address] Erythrocyte sedimentation ra teOrdered By: Betty Calvin on 07-30-2023 ESR (Bld) [Velocity] 55 mm/h 0-30 [facility] Serum or plasma C reactive p rotein measurement (mass/volume)Ordered By: Betty Calvin on 07-30-2023 CRP [Mass/Vol] 120.00 mg/L 0.0-3.0 [facility] Comment on above: C-Reactive Protein ( CRP) provides useful information for thediagnosis, therapy and monitoring of inflammatory processesand associated diseases. For the evaluation of Relative Riskfor Cardiovascular Disease, a High Sensitivity CRP (HSCRP)should be ordered. Basic Metabolic Profile (BMP )on 07-29-2023 BUN/CRE 13.8 RATIO Normal 10-20 [facility] Comment on above: Performed By: #### L 500.2500, L101.9900, L100.0100, L501.6710 ####[facility] [address] [facility] [address] [place],Total 8.7 mg/dL Normal 8.5-10.1 [facility] Comment on above: Performed By: #### L 500.2500, L101.9900, L100.0100, L501.6710 ####[facility] [address] [facility] [address] Chloride [Moles/Vol] 106 mmol/L Normal 98-107 [facility] Comment on above: Performed By: #### L 500.2500, L101.9900, L100.0100, L501.6710 ####[facility] [address] [facility] [address] CO2 [Moles/Vol] 27.0 mmol/L Normal 21.0-32.0 [facility] Comment on above: Performed By: #### L 500.2500, L101.9900, L100.0100, L501.6710 ####[facility] [address] [place], [address] Creatinine [Mass/Vol] 0.72 mg/dL Normal 0.55-1.02 [facility] Comment on above: Result Comment: The validity of the calculated GFR GFRAA in patients over70 years has not been determined. Clinical correlation isessential. Performed By: #### L 500.2500, L101.9900, L100.0100, L501.6710 ####[facility] [address] [place], [address] ECRCL 76.24 ml/min Normal [facility] Comment on above: Performed By: #### L 500.2500, L101.9900, L100.0100, L501.6710 ####[facility] [address] [place], [address] EST GFR - AA 107 mL/min Normal >60 [facility] Comment on above: Result Comment: Afri can [place] GFR Calc Performed By: #### L 500.2500, L101.9900, L100.0100, L501.6710 ####[facility] [address] [place], [address] GAP 5 Normal 5-15 [facility] Comment on above: Performed By: #### L 500.2500, L101.9900, L100.0100, L501.6710 ####[facility] [address] [place], [address] GFR/1.73 sq M.predicted among non-blacks MDRD (S/P/Bld) [Vol rate/Area] 89 mL/min/{1.73_m2} Normal >60 [facility] Comment on above: Result Comment: Non- GFR Calc Performed By: #### L 500.2500, L101.9900, L100.0100, L501.6710 ####[facility] [address] [place], [address] Glucose [Mass/Vol] 109 mg/dL High 74-106 [facility] Comment on above: Result Comment: Fast ing Glucose result from 100 to 125 mg/dLsuggests IMPAIRED HOMEOSTASIS per A.D.A. criteria. Performed By: #### L 500.2500, L101.9900, L100.0100, L501.6710 ####[facility] [address] [place], [address] Potassium [Moles/Vol] 3.7 mmol/L Normal 3.5-5.1 [facility] Comment on above: Performed By: #### L 500.2500, L101.9900, L100.0100, L501.6710 ####[facility] [address] [place], [address] Sodium [Moles/Vol] 138 mmol/L Normal 136-145 [facility] Comment on above: Performed By: #### L 500.2500, L101.9900, L100.0100, L501.6710 ####[facility] [address] [place], [address] Urea nitrogen [Mass/Vol] 10 mg/dL Normal 7-18 [facility] Comment on above: Performed By: #### L 500.2500, L101.9900, L100.0100, L501.6710 ####[facility] [address] [place], [address] CBC W/Diff, Automatedon 08-3 0-2023 Absolute Lymph 0.95 X10 3/uL Normal 0.83-4.51 [facility] Comment on above: Performed By: #### L 500.2500, L101.9900, L100.0100, L501.6710 ####[facility] [address] [place], [address] Absolute Neut 3.7 X10 3/uL Normal 2.0-7.7 [facility] Comment on above: Performed By: #### L 500.2500, L101.9900, L100.0100, L501.6710 ####[facility] [address] [place], [address] Basophils/100 WBC (Bld) 0.2 % Normal 0-1 [facility] Comment on above: Performed By: #### L 500.2500, L101.9900, L100.0100, L501.6710 ####[facility] [address] [place], [address] Eosinophils/100 WBC (Bld) 0.2 % Normal 0-5 [facility] Comment on above: Performed By: #### L 500.2500, L101.9900, L100.0100, L501.6710 ####[facility] [address] [place], [address] Erythrocyte distribution width (RBC) [Ratio] 14.9 % High 11.6-14.6 [facility] Comment on above: Performed By: #### L 500.2500, L101.9900, L100.0100, L501.6710 ####[facility] [address] [place], [address] Hematocrit (Bld) [Volume fraction] 33.8 % Low 37-47 [facility] Comment on above: Performed By: #### L 500.2500, L101.9900, L100.0100, L501.6710 ####[facility] [address] [place], [address] Hemoglobin (Bld) [Mass/Vol] 10.5 g/dL Low 12.0-15.0 [facility] Comment on above: Performed By: #### L 500.2500, L101.9900, L100.0100, L501.6710 ####[facility] [address] [place], [address] IG% 0.900 Normal 0.0-0.9 [facility] Comment on above: Result Comment: IG% - Immature Granulocytes (promyelocytes, myelocytes andmetamyelocytes) > 1% indicates that a LEFT SHIFT is Present. Performed By: #### L 500.2500, L101.9900, L100.0100, L501.6710 ####[facility] [address] [place], [address] Lymphocytes/100 WBC (Bld) 17.9 % Low 19-41 [facility] Comment on above: Performed By: #### L 500.2500, L101.9900, L100.0100, L501.6710 ####[facility] [address] [place], [address] MCH (RBC) [Entitic mass] 27.3 pg Normal 27.0-32.0 [facility] Comment on above: Performed By: #### L 500.2500, L101.9900, L100.0100, L501.6710 ####[facility] [address] [place], [address] MCHC (RBC) [Mass/Vol] 31.1 g/dL Low 32-36 [facility] Comment on above: Performed By: #### L 500.2500, L101.9900, L100.0100, L501.6710 ####[facility] [address] [place], [address] MCV (RBC) [Entitic vol] 87.8 fL Normal 81-99 [facility] Comment on above: Performed By: #### L 500.2500, L101.9900, L100.0100, L501.6710 ####[facility] [address] [place], [address] Monocytes/100 WBC (Bld) 10.9 % High 0-10 [facility] Comment on above: Performed By: #### L 500.2500, L101.9900, L100.0100, L501.6710 ####[facility] [address] [place], [address] Neutrophils/100 WBC (Bld) 69.9 % Normal 47-70 [facility] Comment on above: Performed By: #### L 500.2500, L101.9900, L100.0100, L501.6710 ####[facility] [address] [place], [address] Nucleated RBC (Bld) [#/Vol] 0 10*3/uL Normal 0-5 [facility] Comment on above: Performed By: #### L 500.2500, L101.9900, L100.0100, L501.6710 ####[facility] [address] [place], [address] Platelet mean volume (Bld) [Entitic vol] 9.8 fL Normal 6.2-12.0 [facility] Comment on above: Performed By: #### L 500.2500, L101.9900, L100.0100, L501.6710 ####[facility] [address] [place], [address] Platelets (Bld) [#/Vol] 180 10*3/uL Normal 150-450 [facility] Comment on above: Performed By: #### L 500.2500, L101.9900, L100.0100, L501.6710 ####[facility] [address] [place], [address] RBC (Bld) [#/Vol] 3.85 10*6/uL Low 4.2-5.4 [facility] Comment on above: Performed By: #### L 500.2500, L101.9900, L100.0100, L501.6710 ####[facility] [address] [place], [address] RDW SD 48.2 fl High 35.1-43.9 [facility] Comment on above: Performed By: #### L 500.2500, L101.9900, L100.0100, L501.6710 ####[facility] [address] [place], [address] WBC (Bld) [#/Vol] 5.3 10*3/uL Normal 4.4-11.0 [facility] Comment on above: Performed By: #### L 500.2500, L101.9900, L100.0100, L501.6710 ####[facility] [address] [place], [address] CRPon 07-29-2023 C-REACTIVE PROT 164.00 mg/L High 0.0-3.0 [facility] Comment on above: Result Comment: C-Re active Protein (CRP) provides useful information for thediagnosis, therapy and monitoring of inflammatory processesand associated diseases. For the evaluation of Relative Riskfor Cardiovascular Disease, a High Sensitivity CRP (HSCRP)should be ordered. Performed By: #### L 500.2500, L101.9900, L100.0100, L501.6710 ####[facility] [address] [place], [address] Echo Complete W/ Contraston 07-29-2023 Echo Complete W/ Contrast Normal [facility] Erythrocyte Sed Rateon 07-29 SED RATE 57 mm/hr High 0-30 [facility] Comment on above: Performed By: #### L 500.2500, L101.9900, L100.0100, L501.6710 ####[facility] [address] [place], [address] BNP,B-Type NATRIURETIC PEPTI DEOrdered By: Betty Calvin on 07-28-2023 Natriuretic peptide B (Bld) [Mass/Vol] 232.8 pg/mL High 0-100 [facility] Comment on above: Performed By: #### L 503.6620 ####[facility] [address] [place], [address] Basic Metabolic Profile (BMP )on 07-28-2023 BUN/CRE 10.5 RATIO Normal 10-20 [facility] Comment on above: Performed By: #### L 500.2500, L100.0100 ####[facility] [address] [place], [address] CA,Total 8.8 mg/dL Normal 8.5-10.1 [facility] Comment on above: Performed By: #### L 500.2500, L100.0100 ####[facility] [address] [place], [address] Chloride [Moles/Vol] 107 mmol/L Normal 98-107 [facility] Comment on above: Performed By: #### L 500.2500, L100.0100 ####[facility] [address] [place], [address] CO2 [Moles/Vol] 25.0 mmol/L Normal 21.0-32.0 [facility] Comment on above: Performed By: #### L 500.2500, L100.0100 ####[facility] [address] [place], [address] Creatinine [Mass/Vol] 0.66 mg/dL Normal 0.55-1.02 [facility] Comment on above: Result Comment: The validity of the calculated GFR GFRAA in patients over70 years has not been determined. Clinical correlation isessential. Performed By: #### L 500.2500, L100.0100 ####[facility] [address] [place], [address] ECRCL 83.17 ml/min Normal [facility] Comment on above: Performed By: #### L 500.2500, L100.0100 ####[facility] [address] [place], [address] EST GFR - AA 118 mL/min Normal >60 [facility] Comment on above: Result Comment: Afri can [place] GFR Calc Performed By: #### L 500.2500, L100.0100 ####[facility] [address] [place], [address] GAP 6 Normal 5-15 [facility] Comment on above: Performed By: #### L 500.2500, L100.0100 ####[facility] [address] [place], [address] GFR/1.73 sq M.predicted among non-blacks MDRD (S/P/Bld) [Vol rate/Area] 98 mL/min/{1.73_m2} Normal >60 [facility] Comment on above: Result Comment: Non- GFR Calc Performed By: #### L 500.2500, L100.0100 ####[facility] [address] [place], [address] Glucose [Mass/Vol] 106 mg/dL Normal 74-106 [facility] Comment on above: Result Comment: Fast ing Glucose result from 100 to 125 mg/dLsuggests IMPAIRED HOMEOSTASIS per A.D.A. criteria. Performed By: #### L 500.2500, L100.0100 ####[facility] [address] [place], [address] Potassium [Moles/Vol] 3.9 mmol/L Normal 3.5-5.1 [facility] Comment on above: Performed By: #### L 500.2500, L100.0100 ####[facility] [address] [place], [address] Sodium [Moles/Vol] 138 mmol/L Normal 136-145 [facility] Comment on above: Performed By: #### L 500.2500, L100.0100 ####[facility] [address] [place], [address] Urea nitrogen [Mass/Vol] 7 mg/dL Normal 7-18 [facility] Comment on above: Performed By: #### L 500.2500, L100.0100 ####[facility] [address] [place], [address] CBC W/Diff, Automatedon 07-01 Absolute Lymph 0.97 X10 3/uL Normal 0.83-4.51 [facility] Comment on above: Performed By: #### L 500.2500, L100.0100 ####[facility] [address] [place], [address] Absolute Neut 4.2 X10 3/uL Normal 2.0-7.7 [facility] Comment on above: Performed By: #### L 500.2500, L100.0100 ####[facility] [address] [place], [address] Basophils/100 WBC (Bld) 0.2 % Normal 0-1 [facility] Comment on above: Performed By: #### L 500.2500, L100.0100 ####[facility] [address] [place], [address] Eosinophils/100 WBC (Bld) 0.2 % Normal 0-5 [facility] Comment on above: Performed By: #### L 500.2500, L100.0100 ####[facility] [address] [place], [address] Erythrocyte distribution width (RBC) [Ratio] 15.2 % High 11.6-14.6 [facility] Comment on above: Performed By: #### L 500.2500, L100.0100 ####[facility] [address] [place], [address] Hematocrit (Bld) [Volume fraction] 33.8 % Low 37-47 [facility] Comment on above: Performed By: #### L 500.2500, L100.0100 ####[facility] [address] [place], [address] Hemoglobin (Bld) [Mass/Vol] 10.5 g/dL Low 12.0-15.0 [facility] Comment on above: Performed By: #### L 500.2500, L100.0100 ####[facility] [address] [place], [address] IG% 0.700 Normal 0.0-0.9 [facility] Comment on above: Result Comment: IG% - Immature Granulocytes (promyelocytes, myelocytes andmetamyelocytes) > 1% indicates that a LEFT SHIFT is Present. Performed By: #### L 500.2500, L100.0100 ####[facility] [address] [place], [address] Lymphocytes/100 WBC (Bld) 16.6 % Low 19-41 [facility] Comment on above: Performed By: #### L 500.2500, L100.0100 ####[facility] [address] [place], [address] MCH (RBC) [Entitic mass] 27.1 pg Normal 27.0-32.0 [facility] Comment on above: Performed By: #### L 500.2500, L100.0100 ####[facility] [address] [place], [address] MCHC (RBC) [Mass/Vol] 31.1 g/dL Low 32-36 [facility] Comment on above: Performed By: #### L 500.2500, L100.0100 ####[facility] [address] [place], [address] MCV (RBC) [Entitic vol] 87.3 fL Normal 81-99 [facility] Comment on above: Performed By: #### L 500.2500, L100.0100 ####[facility] [address] [place], [address] Monocytes/100 WBC (Bld) 11.3 % High 0-10 [facility] Comment on above: Performed By: #### L 500.2500, L100.0100 ####[facility] [address] [place], [address] Neutrophils/100 WBC (Bld) 71.0 % High 47-70 [facility] Comment on above: Performed By: #### L 500.2500, L100.0100 ####[facility] [address] [place], [address] Nucleated RBC (Bld) [#/Vol] 0 10*3/uL Normal 0-5 [facility] Comment on above: Performed By: #### L 500.2500, L100.0100 ####[facility] [address] [place], [address] Platelet mean volume (Bld) [Entitic vol] 10.3 fL Normal 6.2-12.0 [facility] Comment on above: Performed By: #### L 500.2500, L100.0100 ####[facility] [address] [place], [address] Platelets (Bld) [#/Vol] 175 10*3/uL Normal 150-450 [facility] Comment on above: Performed By: #### L 500.2500, L100.0100 ####[facility] [address] [place], [address] RBC (Bld) [#/Vol] 3.87 10*6/uL Low 4.2-5.4 [facility] Comment on above: Performed By: #### L 500.2500, L100.0100 ####[facility] [address] [place], [address] RDW SD 48.9 fl High 35.1-43.9 [facility] Comment on above: Performed By: #### L 500.2500, L100.0100 ####[facility] [address] [place], [address] WBC (Bld) [#/Vol] 5.9 10*3/uL Normal 4.4-11.0 [facility] Comment on above: Performed By: #### L 500.2500, L100.0100 ####[facility] [address] [place], [address] Chest 1 View (Portable)on Chest 1 View (Portable) Normal [facility] Basic Metabolic Profile (BMP )on 07-27-2023 BUN/CRE 11.1 RATIO Normal 10-20 [facility] Comment on above: Performed By: #### L 500.2500, L101.9900, L100.0100, L501.6710 ####[facility] [address] [place], [address] CA,Total 8.1 mg/dL Low 8.5-10.1 [facility] Comment on above: Performed By: #### L 500.2500, L101.9900, L100.0100, L501.6710 ####[facility] [address] [place], [address] Chloride [Moles/Vol] 108 mmol/L High 98-107 [facility] Comment on above: Performed By: #### L 500.2500, L101.9900, L100.0100, L501.6710 ####[facility] [address] [place], [address] CO2 [Moles/Vol] 27.0 mmol/L Normal 21.0-32.0 [facility] Comment on above: Performed By: #### L 500.2500, L101.9900, L100.0100, L501.6710 ####[facility] [address] [place], [address] Creatinine [Mass/Vol] 0.72 mg/dL Normal 0.55-1.02 [facility] Comment on above: Result Comment: The validity of the calculated GFR GFRAA in patients over70 years has not been determined. Clinical correlation isessential. Performed By: #### L 500.2500, L101.9900, L100.0100, L501.6710 ####[facility] [address] [place], [address] ECRCL 76.24 ml/min Normal [facility] Comment on above: Performed By: #### L 500.2500, L101.9900, L100.0100, L501.6710 ####[facility] [address] [place], [address] EST GFR - AA 108 mL/min Normal >60 [facility] Comment on above: Result Comment: Afri can [place] GFR Calc Performed By: #### L 500.2500, L101.9900, L100.0100, L501.6710 ####[facility] [address] [place], [address] GAP 3 Low 5-15 [facility] Comment on above: Performed By: #### L 500.2500, L101.9900, L100.0100, L501.6710 ####[facility] [address] [place], [address] GFR/1.73 sq M.predicted among non-blacks MDRD (S/P/Bld) [Vol rate/Area] 89 mL/min/{1.73_m2} Normal >60 [facility] Comment on above: Result Comment: Non- GFR Calc Performed By: #### L 500.2500, L101.9900, L100.0100, L501.6710 ####[facility] [address] [place], [address] Glucose [Mass/Vol] 110 mg/dL High 74-106 [facility] Comment on above: Result Comment: Fast ing Glucose result from 100 to 125 mg/dLsuggests IMPAIRED HOMEOSTASIS per A.D.A. criteria. Performed By: #### L 500.2500, L101.9900, L100.0100, L501.6710 ####[facility] [address] [place], [address] Potassium [Moles/Vol] 3.9 mmol/L Normal 3.5-5.1 [facility] Comment on above: Performed By: #### L 500.2500, L101.9900, L100.0100, L501.6710 ####[facility] [address] [place], [address] Sodium [Moles/Vol] 138 mmol/L Normal 136-145 [facility] Comment on above: Performed By: #### L 500.2500, L101.9900, L100.0100, L501.6710 ####[facility] [address] [place], [address] Urea nitrogen [Mass/Vol] 8 mg/dL Normal 7-18 [facility] Comment on above: Performed By: #### L 500.2500, L101.9900, L100.0100, L501.6710 ####[facility] [address] [place], [address] CBC W/Diff, Automatedon 07-01 Absolute Lymph 0.93 X10 3/uL Normal 0.83-4.51 [facility] Comment on above: Performed By: #### L 500.2500, L101.9900, L100.0100, L501.6710 ####[facility] [address] [place], [address] Absolute Neut 4.7 X10 3/uL Normal 2.0-7.7 [facility] Comment on above: Performed By: #### L 500.2500, L101.9900, L100.0100, L501.6710 ####[facility] [address] [place], [address] Basophils/100 WBC (Bld) 0.2 % Normal 0-1 [facility] Comment on above: Performed By: #### L 500.2500, L101.9900, L100.0100, L501.6710 ####[facility] [address] [place], [address] Eosinophils/100 WBC (Bld) 0.2 % Normal 0-5 [facility] Comment on above: Performed By: #### L 500.2500, L101.9900, L100.0100, L501.6710 ####[facility] [address] [place], [address] Erythrocyte distribution width (RBC) [Ratio] 15.5 % High 11.6-14.6 [facility] Comment on above: Performed By: #### L 500.2500, L101.9900, L100.0100, L501.6710 ####[facility] [address] [place], [address] Hematocrit (Bld) [Volume fraction] 33.6 % Low 37-47 [facility] Comment on above: Performed By: #### L 500.2500, L101.9900, L100.0100, L501.6710 ####[facility] [address] [place], [address] Hemoglobin (Bld) [Mass/Vol] 10.3 g/dL Low 12.0-15.0 [facility] Comment on above: Performed By: #### L 500.2500, L101.9900, L100.0100, L501.6710 ####[facility] [address] [place], [address] IG% 0.600 Normal 0.0-0.9 [facility] Comment on above: Result Comment: IG% - Immature Granulocytes (promyelocytes, myelocytes andmetamyelocytes) > 1% indicates that a LEFT SHIFT is Present. Performed By: #### L 500.2500, L101.9900, L100.0100, L501.6710 ####[facility] [address] [place], [address] Lymphocytes/100 WBC (Bld) 14.6 % Low 19-41 [facility] Comment on above: Performed By: #### L 500.2500, L101.9900, L100.0100, L501.6710 ####[facility] [address] [place], [address] MCH (RBC) [Entitic mass] 27.2 pg Normal 27.0-32.0 [facility] Comment on above: Performed By: #### L 500.2500, L101.9900, L100.0100, L501.6710 ####[facility] [address] [place], [address] MCHC (RBC) [Mass/Vol] 30.7 g/dL Low 32-36 [facility] Comment on above: Performed By: #### L 500.2500, L101.9900, L100.0100, L501.6710 ####[facility] [address] [place], [address] MCV (RBC) [Entitic vol] 88.9 fL Normal 81-99 [facility] Comment on above: Performed By: #### L 500.2500, L101.9900, L100.0100, L501.6710 ####[facility] [address] [place], [address] Monocytes/100 WBC (Bld) 10.7 % High 0-10 [facility] Comment on above: Performed By: #### L 500.2500, L101.9900, L100.0100, L501.6710 ####[facility] [address] [place], [address] Neutrophils/100 WBC (Bld) 73.7 % High 47-70 [facility] Comment on above: Performed By: #### L 500.2500, L101.9900, L100.0100, L501.6710 ####[facility] [address] [place], [address] Nucleated RBC (Bld) [#/Vol] 0 10*3/uL Normal 0-5 [facility] Comment on above: Performed By: #### L 500.2500, L101.9900, L100.0100, L501.6710 ####[facility] [address] [place], [address] Platelet mean volume (Bld) [Entitic vol] 10.2 fL Normal 6.2-12.0 [facility] Comment on above: Performed By: #### L 500.2500, L101.9900, L100.0100, L501.6710 ####[facility] [address] [place], [address] Platelets (Bld) [#/Vol] 163 10*3/uL Normal 150-450 [facility] Comment on above: Performed By: #### L 500.2500, L101.9900, L100.0100, L501.6710 ####[facility] [address] [place], [address] RBC (Bld) [#/Vol] 3.78 10*6/uL Low 4.2-5.4 [facility] Comment on above: Performed By: #### L 500.2500, L101.9900, L100.0100, L501.6710 ####[facility] [address] [place], [address] RDW SD 50.8 fl High 35.1-43.9 [facility] Comment on above: Performed By: #### L 500.2500, L101.9900, L100.0100, L501.6710 ####[facility] [address] [place], [address] WBC (Bld) [#/Vol] 6.4 10*3/uL Normal 4.4-11.0 [facility] Comment on above: Performed By: #### L 500.2500, L101.9900, L100.0100, L501.6710 ####[facility] [address] [place], [address] CRPon 07-27-2023 C-REACTIVE PROT 138.00 mg/L High 0.0-3.0 [facility] Comment on above: Result Comment: C-Re active Protein (CRP) provides useful information for thediagnosis, therapy and monitoring of inflammatory processesand associated diseases. For the evaluation of Relative Riskfor Cardiovascular Disease, a High Sensitivity CRP (HSCRP)should be ordered. Performed By: #### L 500.2500, L101.9900, L100.0100, L501.6710 ####[facility] [address] [place], [place], [address] Consultation - Infectious Dx on 07-27-2023 Consultation - Infectious Dx Normal [facility] Erythrocyte Sed Rateon 07-27 SED RATE 47 mm/hr High 0-30 [facility] Comment on above: Performed By: #### L 500.2500, L101.9900, L100.0100, L501.6710 ####[facility] [address] [place], [place], [address] No Panel InformationOrdered By: Adrianna Mejia on 07-26-2023 Methicillin-Resist S.aureus DNA PCR Negative Negative [facility] Staphylococcus aureus DNA de tection by probe and target amplification methodOrdered By: Adrianna Mejia on 07-26-2023 S. aureus DNA CHANTELL+probe Ql (Unsp spec) Positive Negative [facility] Vancomycin troughOrdered By: Betty Calvin on 07-26-2023 Vancomycin trough [Mass/Vol] 15.1 ug/mL 5.0-15.0 [facility] Comment on above: VANCOMYCIN STANDARED DRUG THERAPY TROUGH LEVEL: 5.0 - 15.0 mg/L VANCOMYCIN HIGH INTENSITY THERAPY TROUGH LEVEL: 15.0 - 20.0 mg/L High Intensity therapy recommended for serious lifethreatening infections include:- Ddawslxrzt-Sjyvmglijliz-Ycsqooozh (Ventilator/Healtcare Associated)-Sepsis PLEASE CONTACT PHARMACY SERVICES (#[id number]) FOR INTERPRETATIONOF RESULTS. Basophil percentageOrdered B y: Betty Calvin on 07-25-2023 Bilirubin [Mass/Vol] 0.60 mg/dL 0.20-1.00 [facility] Comment on above: For patients on eltr ombopag therapy, use of [facility] [place] TBIL is not recommended. Lactate [Moles/Vol] 1.5 mmol/L 0.4-2.0 [facility] Protein [Mass/Vol] 7.0 g/dL 6.4-8.2 [facility] Basophil percentageOrdered B y: Adrianna Mejia on 07-25-2023 Basophil percentage 2.9 mg/dL 2.5-4.9 [facility] Blood manual differential co mment interpretation (narrative result)Ordered By: Ardianna Mejia on 07-25-2023 Manual differential comment Terry (Bld) [Interp] SCANNED [facility] Comment on above: LYMPHOPENIA PRESENT Laboratory - Chemistry and C hemistry - challengeOrdered By: Betty Calvin on 07-25-2023 ALP [Catalytic activity/Vol] 71 U/L 45-117 [facility] ALT [Catalytic activity/Vol] 20 U/L 13-56 [facility] Globulin (S) [Mass/Vol] 3.9 g/dL 2.2-4.2 [facility] Laboratory - Chemistry and C hemistry - challengeOrdered By: Adrianna Mejia on 07-25-2023 Magnesium [Mass/Vol] 1.8 mg/dL 1.6-2.6 [facility] Laboratory - Microbiology an d Antimicrobial susceptibilityOrdered By: Betty Calvin on 07-25-2023 Bacteria identified Cx Nom (Bld) No growth in 5 days. [facility] No Panel InformationOrdered By: Adrianna Mejia on 07-25-2023 Thyroid Stimulating Hormone (TSH) 1.67 uIU/mL 0.358-3.74 [facility] Serum or plasma albumin herson urement (mass/volume)Ordered By: Betty Calvin on 07-25-2023 Albumin [Mass/Vol] 3.1 g/dL 3.2-5.0 [facility] Serum or plasma albumin/glob ulin mass ratioOrdered By: Betty Calvin on 07-25-2023 Albumin/Globulin [Mass ratio] 0.8 {ratio} 0.9-2.4 [facility] Serum procalcitonin measurem entOrdered By: Betty Calvin on 07-25-2023 Procalcitonin [Mass/Vol] 0.10 ng/mL 0.00-0.09 [facility] Comment on above: A procalcitonin (PCT ) level above 2.0 ng/mL on the first day of ICU admission is associated with a high risk for progression to severe sepsis and/or septic shock. A PCT level below 0.5 ng/mL on the first day of ICU admission is associated with a low risk for progression to severe and/or septic shock. Note: Concentrations <0.5 ng/mL do not exclude an infection on account of localized infections (without systemic signs) which can be associated with such low concentrations, or a systemic infection in its initial stages (<6 hours). Furthermore, increased procalcitonin can occur without infection. PCT concentrations between 0.5 and 2.0 ng/mL should be interpreted taking into account the patient's history. It is recommended to retest PCT within 6-24 hours if any concentrations <2 ng/mL are obtained. Thin prep Papanicolaou smear with manual screeningOrdered By: Betty Calvin on 07-25-2023 Thin prep Papanicolaou smear with manual screening 14 U/L 15-37 [facility] Absolute lymphocyte countOrd ered By: Arthur Lara on 07-24-2023 Lymphocytes Auto (Unsp spec) [#/Vol] 0.90 10*3/uL 0.83-4.51 [facility] Basophil percentageOrdered B y: Arthur Lara on 07-24-2023 Basophils/100 WBC (Bld) 0.1 % 0-1 [facility] Bilirubin [Mass/Vol] 0.30 mg/dL 0.20-1.00 [facility] Comment on above: For patients on eltr ombopag therapy, use of [facility] [place] TBIL is not recommended. Chloride [Moles/Vol] 107 mmol/L 98-107 [facility] Eosinophils/100 WBC (Bld) 0.0 % 0-5 [facility] Glucose [Mass/Vol] 118 mg/dL 74-106 [facility] Comment on above: Fasting Glucose resu lt from 100 to 125 mg/dL suggests IMPAIRED HOMEOSTASIS per A.D.A. criteria. Lactate [Moles/Vol] 1.6 mmol/L 0.4-2.0 [facility] Neutrophils (Bld) [#/Vol] 9.4 10*3/uL 2.0-7.7 [facility] Neutrophils/100 WBC (Bld) 84.5 % 47-70 [facility] Potassium [Moles/Vol] 4.2 mmol/L 3.5-5.1 [facility] Protein [Mass/Vol] 7.1 g/dL 6.4-8.2 [facility] Sodium [Moles/Vol] 138 mmol/L 136-145 [facility] WBC (Bld) [#/Vol] 11.1 10*3/uL 4.4-11.0 [facility] Blood erythrocytes count (nu mber/volume)Ordered By: Arthur Lara on 07-24-2023 RBC (Bld) [#/Vol] 4.40 10*6/uL 4.2-5.4 [facility] Blood hemoglobin measurement (mass/volume)Ordered By: Arthur Lara on 07-24-2023 Hemoglobin (Bld) [Mass/Vol] 12.2 g/dL 12.0-15.0 [facility] Blood lymphocytes/100 leukoc ytesOrdered By: Arthur Lara on 07-24-2023 Lymphocytes/100 WBC (Bld) 8.1 % 19-41 [facility] Blood monocytes/100 leukocyt esOrdered By: Arthur Lara on 07-24-2023 Monocytes/100 WBC (Bld) 6.7 % 0-10 [facility] Blood platelet mean volumeOr dered By: Arthur Lara on 07-24-2023 Platelet mean volume (Bld) [Entitic vol] 9.2 fL 6.2-12.0 [facility] Determination of erythrocyte mean corpuscular volume (MCV)Ordered By: Arthur Lara on 07-24-2023 MCV (RBC) [Entitic vol] 86.4 fL 81-99 [facility] Erythrocyte sedimentation ra teOrdered By: Adrianna Mejia on 07-24-2023 ESR (Bld) [Velocity] 35 mm/h 0-30 [facility] Hematocrit Auto (Bld) [Volum e fraction]Ordered By: Arthur Lara on 07-24-2023 Hematocrit (Bld) [Volume fraction] 38.0 % 37-47 [facility] Laboratory - Chemistry and C hemistry - challengeOrdered By: Arthur Lara on 07-24-2023 ALP [Catalytic activity/Vol] 87 U/L 45-117 [facility] ALT [Catalytic activity/Vol] 19 U/L 13-56 [facility] CO2 [Moles/Vol] 28.0 mmol/L 21.0-32.0 [facility] Globulin (S) [Mass/Vol] 3.9 g/dL 2.2-4.2 [facility] Urea nitrogen/Creatinine [Mass ratio] 23.4 mg/mg 10-20 [facility] Laboratory - Hematology and Cell countsOrdered By: Arthur Lara on 07-24-2023 Erythrocyte distribution width (RBC) [Entitic vol] 48.1 fL 35.1-43.9 [facility] Erythrocyte distribution width (RBC) [Ratio] 15.2 % 11.6-14.6 [facility] Immature granulocytes/100 WBC (Bld) 0.600 % 0.0-0.9 [facility] Comment on above: IG% - Immature Granu locytes (promyelocytes, myelocytes and metamyelocytes) > 1% indicates that a LEFT SHIFT is Present. MCH (RBC) [Entitic mass] 27.7 pg 27.0-32.0 [facility] Nucleated RBC/100 WBC (Bld) [Ratio] 0 % 0-5 [facility] MCHC Auto (RBC) [Mass/Vol]Or dered By: Arthur Lara on 07-24-2023 MCHC (RBC) [Mass/Vol] 32.1 g/dL 32-36 [facility] No Panel InformationOrdered By: Arthur Lara on 07-24-2023 Estimated Creatinine Clearance Calc 66.51 ml/min [facility] Estimated GFR (MDRD) Amer 89 mL/min >60 [facility] Comment on above: GFR Calc Estimated GFR (MDRD) Non-Af Amer 73 mL/min >60 [facility] Comment on above: Non- GFR Calc Platelets bldOrdered By: Louann Lara on 07-24-2023 Platelets (Bld) [#/Vol] 209 10*3/uL 150-450 [facility] Serum or plasma C reactive p rotein measurement (mass/volume)Ordered By: Adrianna Mejia on 07-24-2023 CRP [Mass/Vol] 21.50 mg/L 0.0-3.0 [facility] Comment on above: C-Reactive Protein ( CRP) provides useful information for thediagnosis, therapy and monitoring of inflammatory processesand associated diseases. For the evaluation of Relative Riskfor Cardiovascular Disease, a High Sensitivity CRP (HSCRP)should be ordered. Serum or plasma albumin herson urement (mass/volume)Ordered By: Arthur Lara on 07-24-2023 Albumin [Mass/Vol] 3.2 g/dL 3.2-5.0 [facility] Serum or plasma albumin/glob ulin mass ratioOrdered By: Arthur Lara on 07-24-2023 Albumin/Globulin [Mass ratio] 0.8 {ratio} 0.9-2.4 [facility] Serum or plasma calcium herson urement (mass/volume)Ordered By: Arthur Lara on 07-24-2023 Calcium [Mass/Vol] 8.9 mg/dL 8.5-10.1 [facility] Serum or plasma creatinine m easurement (mass/volume)Ordered By: Arthur Lara on 07-24-2023 Creatinine [Mass/Vol] 0.86 mg/dL 0.55-1.02 [facility] Comment on above: The validity of the calculated GFR & GFRAA in patients over 70 years has not been determined. Clinical correlation is essential. Serum or plasma urea nitroge n measurement (mass/volume)Ordered By: Arthur Lara on 07-24-2023 Urea nitrogen [Mass/Vol] 20 mg/dL 7-18 [facility] Thin prep Papanicolaou smear with manual screeningOrdered By: Arthur Lara on 07-24-2023 Thin prep Papanicolaou smear with manual screening 12 U/L 15-37 [facility] Thin prep Papanicolaou smear with manual screening 3 5-15 [facility] Whole blood hemoglobin A1c/t otal hemoglobin ratio (mass fraction)Ordered By: Adrianna Mejia on 07-24-2023 HbA1c (Bld) [Mass fraction] 5.9 % 3.8-5.6 [facility] Comment on above: Normal < 5.7 % Predi abetic 5.7 - 6.4 % Diabetic >or= 6.5 % Please note range changes. Laboratory - Hematology and Cell countson 07-16-2023 Basophils (Bld) [#/Vol] 0.007 10*3/uL Normal 0 - 200 {cells/uL} [facility] [place] [facility]. Basophils/100 WBC (Bld) 0.1 % Normal [facility].; [facility], [facility]. Eosinophils (Bld) [#/Vol] 0.007 10*3/uL Abnormal 15 - 500 {cells/uL} [facility], [facility].; [place] [facility], [facility]. Eosinophils/100 WBC (Bld) 0.1 % Normal [facility].; [place] [facility], [facility]. Erythrocyte distribution width (RBC) [Ratio] 14.3 % Normal 11.0 - 15.0 % [facility].; [place] [facility], [facility]. Hematocrit (Bld) [Volume fraction] 40.3 % Normal 35.0 - 45.0 % [facility], [facility].; [place] [facility], [facility]. Hemoglobin (Bld) [Mass/Vol] 13.2 g/dL Normal 11.7 - 15.5 g/dL [facility].; [place] [facility], [facility]. Lymphocytes (Bld) [#/Vol] 1.414 10*3/uL Normal 850 - 3900 {cells/uL} [facility].; [place], [facility]. Lymphocytes/100 WBC (Bld) 21.1 % Normal [facility].; [place] [facility], [facility]. MCH (RBC) [Entitic mass] 26.9 pg Abnormal 27.0 - 33.0 pg [facility], [facility].; [place], [facility]. MCHC (RBC) [Mass/Vol] 32.8 g/dL Normal 32.0 - 36.0 g/dL [facility].; [place], [facility]. MCV (RBC) [Entitic vol] 82.2 fL Normal 80.0 - 100.0 fL [place] [facility].; [place], [facility]. Monocytes (Bld) [#/Vol] 0.469 10*3/uL Normal 200 - 950 {cells/uL} [facility], [facility].; [place], [facility]. Monocytes/100 WBC (Bld) 7.0 % Normal [facility].; [place], [facility]. Neutrophils (Bld) [#/Vol] 4.804 10*3/uL Normal 1500 - 7800 {cells/uL} [email or web address] Neutrophils/100 WBC (Bld) 71.7 % Normal [facility] [email or web address]. Platelet mean volume (Bld) [Entitic vol] 9.7 fL Normal 7.5 - 12.5 fL [facility] [email or web address]. Platelets (Bld) [#/Vol] 295 10*3/uL Normal 140 - 400 [place] [facility] [email or web address]. RBC (Bld) [#/Vol] 4.90 10*6/uL Normal 3.80 - 5.1 0 {Million/uL} [email or web address]. WBC (Bld) [#/Vol] 6.7 10*3/uL Normal 3.8 - 10.8 [email or web address] No Panel Informationon 07-16 COMMENT(S) SEE NOTE Normal [email or web address] Absolute lymphocyte countOrd ered By: Kolby Guan on 07-08-2023 Lymphocytes Auto (Unsp spec) [#/Vol] 0.36 10*3/uL 0.83-4.51 [facility] Basophil percentageOrdered B y: Kolby Guan on 07-08-2023 Basophils/100 WBC (Bld) 0.1 % 0-1 [facility] Bilirubin [Mass/Vol] 0.70 mg/dL 0.20-1.00 [facility] Comment on above: For patients on eltr ombopag therapy, use of [facility] [place] TBIL is not recommended. Chloride [Moles/Vol] 100 mmol/L 98-107 [facility] Eosinophils/100 WBC (Bld) 0.0 % 0-5 [facility] Glucose [Mass/Vol] 111 mg/dL 74-106 [facility] Comment on above: Fasting Glucose resu lt from 100 to 125 mg/dL suggests IMPAIRED HOMEOSTASIS per A.D.A. criteria. Lactate [Moles/Vol] 1.6 mmol/L 0.4-2.0 [facility] Neutrophils (Bld) [#/Vol] 13.7 10*3/uL 2.0-7.7 [facility] Neutrophils/100 WBC (Bld) 92.5 % 47-70 [facility] Potassium [Moles/Vol] 4.4 mmol/L 3.5-5.1 [facility] Protein [Mass/Vol] 7.3 g/dL 6.4-8.2 [facility] Sodium [Moles/Vol] 134 mmol/L 136-145 [facility] WBC (Bld) [#/Vol] 14.9 10*3/uL 4.4-11.0 [facility] Blood erythrocytes count (nu mber/volume)Ordered By: Kolby Guan on 07-08-2023 RBC (Bld) [#/Vol] 4.58 10*6/uL 4.2-5.4 [facility] Blood hemoglobin measurement (mass/volume)Ordered By: Kolby Guan on 07-08-2023 Hemoglobin (Bld) [Mass/Vol] 12.6 g/dL 12.0-15.0 [facility] Blood lymphocytes/100 leukoc ytesOrdered By: Kolby Guan on 07-08-2023 Lymphocytes/100 WBC (Bld) 2.4 % 19-41 [facility] Blood manual differential co mment interpretation (narrative result)Ordered By: Kolby Guan on 07-08-2023 Manual differential comment Terry (Bld) [Interp] SCANNED [facility] Blood monocytes/100 leukocyt esOrdered By: Kolby Guan on 07-08-2023 Monocytes/100 WBC (Bld) 4.4 % 0-10 [facility] Blood platelet mean volumeOr dered By: Kolby Guan on 07-08-2023 Platelet mean volume (Bld) [Entitic vol] 9.9 fL 6.2-12.0 [facility] Determination of erythrocyte mean corpuscular volume (MCV)Ordered By: Kolby Guan on 07-08-2023 MCV (RBC) [Entitic vol] 87.3 fL 81-99 [facility] Hematocrit Auto (Bld) [Volum e fraction]Ordered By: Kolby Guan on 07-08-2023 Hematocrit (Bld) [Volume fraction] 40.0 % 37-47 [facility] INR in Blood by Coagulation assayOrdered By: Kolby Guan on 07-08-2023 INR Coag (Bld) [Relative time] 1.1 {INR} [facility] Laboratory - Chemistry and C hemistry - challengeOrdered By: Kolby Guan on 07-08-2023 ALP [Catalytic activity/Vol] 79 U/L 45-117 [facility] ALT [Catalytic activity/Vol] 22 U/L 13-56 [facility] CO2 [Moles/Vol] 28.0 mmol/L 21.0-32.0 [facility] Globulin (S) [Mass/Vol] 4.0 g/dL 2.2-4.2 [facility] Urea nitrogen/Creatinine [Mass ratio] 18.7 mg/mg 10-20 [facility] Laboratory - CoagulationOrde red By: Kolby Guan on 07-08-2023 aPTT Coag (Bld) [Time] 35.2 s 24.1-36.2 [facility] PT Coag (PPP) [Time] 13.8 s 11.7-14.9 [facility] Laboratory - Hematology and Cell countsOrdered By: Kolby Guan on 07-08-2023 Erythrocyte distribution width (RBC) [Entitic vol] 49.1 fL 35.1-43.9 [facility] Erythrocyte distribution width (RBC) [Ratio] 15.4 % 11.6-14.6 [facility] Immature granulocytes/100 WBC (Bld) 0.600 % 0.0-0.9 [facility] Comment on above: IG% - Immature Granu locytes (promyelocytes, myelocytes and metamyelocytes) > 1% indicates that a LEFT SHIFT is Present. MCH (RBC) [Entitic mass] 27.5 pg 27.0-32.0 [facility] Nucleated RBC/100 WBC (Bld) [Ratio] 0 % 0-5 [facility] Laboratory - Microbiology an d Antimicrobial susceptibilityOrdered By: Kolby Guan on 07-08-2023 Bacteria identified Cx Nom (Bld) No growth in 5 days. [facility] MCHC Auto (RBC) [Mass/Vol]Or dered By: Kolby Guan on 07-08-2023 MCHC (RBC) [Mass/Vol] 31.5 g/dL 32-36 [facility] No Panel InformationOrdered By: Kolby Guan on 07-08-2023 Estimated Creatinine Clearance Calc 57.18 ml/min [facility] Estimated GFR (MDRD) Amer 77 mL/min >60 [facility] Comment on above: GFR Calc Estimated GFR (MDRD) Non-Af Amer 64 mL/min >60 [facility] Comment on above: Non- GFR Calc Platelets bldOrdered By: Dean Guan on 07-08-2023 Platelets (Bld) [#/Vol] 169 10*3/uL 150-450 [facility] Serum or plasma albumin herson urement (mass/volume)Ordered By: Kolby Guan on 07-08-2023 Albumin [Mass/Vol] 3.3 g/dL 3.2-5.0 [facility] Serum or plasma albumin/glob ulin mass ratioOrdered By: Kolby Guan on 07-08-2023 Albumin/Globulin [Mass ratio] 0.8 {ratio} 0.9-2.4 [facility] Serum or plasma calcium herson urement (mass/volume)Ordered By: Kolby Guan on 07-08-2023 Calcium [Mass/Vol] 9.0 mg/dL 8.5-10.1 [facility] Serum or plasma creatinine m easurement (mass/volume)Ordered By: Kolby Guan on 07-08-2023 Creatinine [Mass/Vol] 0.96 mg/dL 0.55-1.02 [facility] Comment on above: The validity of the calculated GFR & GFRAA in patients over 70 years has not been determined. Clinical correlation is essential. Serum or plasma urea nitroge n measurement (mass/volume)Ordered By: Kolby Guan on 07-08-2023 Urea nitrogen [Mass/Vol] 18 mg/dL 7-18 [facility] Thin prep Papanicolaou smear with manual screeningOrdered By: Kolby Guan on 07-08-2023 Thin prep Papanicolaou smear with manual screening 16 U/L 15-37 [facility] Thin prep Papanicolaou smear with manual screening 6 5-15 [facility] NICOTINE+METABOLITES,Son COTININE <5 Normal [facility] Comment on above: Performed By: #### F [id number] #### [facility] [address] [place] [address] NICOTINE <5 Normal [facility] Comment on above: Result Comment: Cons istent with abstinence from nicotine-containing products for at least 1 week. INTERPRETIVE INFORMATION: Nicotine and Metabolites, Serum or Plasma, Quantitative Methodology: Quantitative Liquid Chromatography-Tandem Mass Spectrometry Positive cutoff: 5 ng/mL For medical purposes only; not valid for forensic use. This test is designed to evaluate recent use of nicotine-containing products. Passive and active exposure cannot be discriminated definitively, although a cutoff of 10 ng/mL cotinine is frequently used for surgery qualification purposes. For smoking cessation programs or compliance testing, the absence of expected drug(s) and/or drug metabolite(s) may indicate non-compliance, inappropriate timing of specimen collection relative to drug administration, poor drug absorption, or limitations of testing. This test cannot distinguish between use of tobacco and purified nicotine products. The concentration value must be greater than or equal to the cutoff to be reported as positive. This test was developed and its performance characteristics determined by [facility]. It has not been cleared or approved by the [place] Food and Drug Administration. This test was performed in a CLIA certified laboratory and is intended for clinical purposes. Performed By: [facility] [address] [place] [id number] Cold Rolling Machine Setter: Damine Hernandez MD, PhD Performed By: #### F [email or web address] #### [facility] [address] [place] [address] VIT B1-THIAMINE WHOLE BLDon 02-07-2023 VIT B1-THIAMINE WHOLE BLD 167 nmol/L Normal 70-180 [facility] Comment on above: Result Comment: INTE RPRETIVE INFORMATION: Vitamin B1, Whole Blood This assay measures the concentration of thiamine diphosphate (TDP), the primary active form of vitamin B1. Approximately 90 percent of vitamin B1 present in whole blood is TDP. Thiamine and thiamine monophosphate, which comprise the remaining 10 percent, are not measured. This test was developed and its performance characteristics determined by [facility]. It has not been cleared or approved by the [place] Food and Drug Administration. This test was performed in a CLIA certified laboratory and is intended for clinical purposes. Performed By: [facility] [address] [place] [id number] Cold Rolling Machine Setter: Damien Hernandez MD, PhD Performed By: #### V TB1W #### [address] [address] COPPERon 02-05-2023 COPPER 152.7 ug/dL Normal 80.0-155.0 [facility] Comment on above: Result Comment: INTE RPRETIVE INFORMATION: Copper, Serum or Plasma Elevated results may be due to skin or collection-related contamination, including the use of a noncertified metal-free collection/transport tube. If contamination concerns exist due to elevated levels of serum/plasma copper, confirmation with a second specimen collected in a certified metal-free tube is recommended. Serum copper may be elevated with infection, inflammation, stress, and copper supplementation. In females, elevated copper may also be caused by oral contraceptives and (concentrations may be elevated up to 3 times normal during the third trimester). This test was developed and its performance characteristics determined by [facility]. It has not been cleared or approved by the [place] Food and Drug Administration. This test was performed in a CLIA certified laboratory and is intended for clinical purposes. Performed By: [facility] [address] [place] [id number] Cold Rolling Machine Setter: Damien Hernandez MD, PhD Performed By: #### F [email or web address] #### [facility] [address] [place] [id number] ZINCon 02-05-2023 ZINC 89.2 ug/dL Normal 60.0-120.0 [facility] Comment on above: Result Comment: INTE RPRETIVE INFORMATION: Zinc, Serum or Plasma Elevated results may be due to skin or collection-related contamination, including the use of a noncertified metal-free collection/transport tube. If contamination concerns exist due to elevated levels of serum/plasma zinc, confirmation with a second specimen collected in a certified metal-free tube is recommended. Circulating zinc concentrations are dependent on albumin status and are depressed with malnutrition. Zinc may also be lowered with infection, inflammation, stress, oral contraceptives, and . Zinc may be elevated with zinc supplementation or fasting. Elevated zinc concentrations may interfere with copper absorption. This test was developed and its performance characteristics determined by [facility]. It has not been cleared or approved by the [place] Food and Drug Administration. This test was performed in a CLIA certified laboratory and is intended for clinical purposes. Performed By: [facility] [address] [place] [address] Cold Rolling Machine Setter: Damien Hernandez MD, PhD Performed By: #### [employer] #### [facility] [address] [place] [address] H. PYLORI BREATH TESTon H. PYLORI BREATH TEST Negative Normal NEGATIVE [facility] Comment on above: Result Comment: ANTI MICROBIALS, PROTON PUMP INHIBITORS, AND BISMUTH PREPARATIONS ARE KNOWN TO SUPPRESS H. PYLORI AND INGESTION OF THESE WITHIN TWO WEEKS PRIOR TO PERFORMING THE UREA BREATH TEST MAY GIVE FALSE NEGATIVE RESULTS. POST-TREATMENT MONITORING OF H. PYLORI SHOULD BE PERFORMED AT LEAST SIX WEEKS AFTER THE END OF TREATMENT. EARLIER ASSESSMENTS MAY GIVE FALSE RESULTS. Performed By: #### B REAT #### [facility] [address] [place], [place] [id number] PARATHYROID HORMONE,INTACTon 02-03-2023 PARATHYROID HORMONE,INTACT 47.2 pg/mL Normal 18.5 - 88.0 [facility] Comment on above: Performed By: #### P TH #### [facility] [address] [facility] [place] [address] Bariatric Surgery - Initialo n 02-02-2023 Bariatric Surgery - Initial Diagnoses/Problems Assessed Bariatric surgery status (V45.86) (Z98.84) BMI 70 and over, adult (V85.45) (Z68.45) Depression (311) (F32.A) GERD (gastroesophageal reflux disease) (530.81) (K21.9) Edema of lower extremity (782.3) (R60.0) Heart disease (429.9) (I51.9) HTN (hypertension) (401.9) (I10) Joint pain (719.40) (M25.50) Lymphedema (457.1) (I89.0) MIGUEL treated with BiPAP (327.23) (G47.33) Morbid obesity (278.01) (E66.01) Patient Discussion/Summary The following are some lifestyle changes you should begin to prepare you for your gastric sleeve surgery. Eliminate soda and other carbonated beverages from your diet. Carbonation will not be well tolerated after surgery. Try Propel, Vitamin Water Zero, Sobe Lifewater, Crystal Light or water. Increase fluid consumption to 64 oz daily. Do not drink within 30 minutes of eating as this will liquefy your food and make you hungry more quickly. Exercise for 30-60 minutes daily. Brisk walking, bike riding and swimming are all examples of healthy exercise. If you are unable to exercise we recommend seated exercise. Do not skip meals. Take a multivitamin daily. Lose weight. In preparation for your surgery it is important that you begin making healthier food choices now. Our dietitian will meet with you to help you select foods lower in calories and higher in nutrition. We would like you to lose at least 1015 lbs prior to surgery. Increase your protein intake to 60 grams per day. Plan your meals. The following are required before surgery: Letter from your doctor and or any other physician supporting your decision to have surgery. Documentation of Comorbidities. Nutritional evaluation. Lab Work:. Navigator's . Navigator's . Psychological Evaluation . compliance report. Please REFER to your BARIATRIC SURGERY FOLDER for all HANDOUTS. Orders have been placed for you in our computer system for tests and referrals. Please COMPLETE your LABS TODAY, we will call you ONLY with any ABNORMAL results. If you are a CURRENT SMOKER (use any form of tobacco, including a Vape Pen), you NEED TO STOP at least SIX (6) WEEKS TO THREE (3) MONTHS PRIOR TO SURGERY. Please call with any questions, we look forward to helping you along on your journey! Provider Impressions Procedure and Risk Discussed: Gastric Sleeve: We discussed the risks and benefits of the gastric sleeve at length. The patient understands the risks and benefits of the procedure and how the procedure is performed. The patient understands the risks include but are not limited to bleeding, infection, DVT, PE, pneumonia, myocardial infarction, leak along the staple lines, and weight regain. 52 yo with bmi of 85 and comorbidites of Heart disease, htn, joint pain, miguel and all can be helped with weight loss. We discussed the risks and benefits at length. At her super obese state she will need to get to a bmi closer to 72 to proceed with surgery. All questions were answered. Chief Complaint The patient is being seen initial visit. Jesusita is a 52 YO female patient present for initial evaluation for WLS with Dr. Huertas. History of Present Illness Initial onset of obesity was in childhood. Their goal for surgery is to be healthier and to lose weight. Better quality of life. The patient has tried multiple diets to lose weight including a low calorie diet, a low carbohydrate diet and Weight Watchers Diet. Herbalife, The patient was most successful with a low calorie diet and Most Lbs Lost 67. The patient considers portion size as their dietary weakness. late night meals, poor choices, no routine, Dr. Yeager, stress eating. She has had a maximum weight of 500 pounds and lowest weight ever of 250 pounds. Distribution of obesity is general. Severity of obesity is Class 3 which is a BMI of greater than or equal to 40. The patient The patient does not exercise. TBD. Symptoms: The patient is experiencing daytime tiredness, decreased exercise tolerance, decreased range of motion, heartburn, poor self esteem and snoring. Comorbidities: back pain, depressed mood, edema, esophageal reflux, heart disease, high cholesterol, joint pain, urinary incontinence, sleep apnea using an appliance and hypertension controlled with oral meds. GERD Patient has reflux. Symptoms: heartburn and dysphagia. Patient is using medications for reflux. Medication: Omeprazole - 40 mg once a day. 1. How bad is the heartburn? 2 = Symptoms noticeable and bothersome but not every day 2. Heartburn when lying down? 2 = Symptoms noticeable and bothersome but not every day 3. Heartburn when standing up? 2 = Symptoms noticeable and bothersome but not every day 4. Heartburn after meals? 2 = Symptoms noticeable and bothersome but not every day 5. Does heartburn change your diet? 0 = No symptom 6. Does heartburn wake you from sleep? 2 = Symptoms noticeable and bothersome but not every day 7. Do you have (more content not included)... Normal Touchworks C-REACTIVE PROTEINon 023 C-REACTIVE PROTEIN 2.27 mg/dL Abnormal [facility] Comment on above: Result Comment: REF VALUE < 1.00 Performed By: #### F OLA2 #### [facility] [address] [place] [address] CBC AND DIFFERENTIALon 02-02 % AUTOMATED IMMATURE GRAN 0.5 % Normal 0.0 - 0.9 [facility] Comment on above: Result Comment: Merna ture Granulocyte Count (IG) includes promyelocytes, myelocytes and metamyelocytes but does not include bands. Percent differential counts (%) should be interpreted in the context of the absolute cell counts (cells/L). Performed By: #### C BCDF #### [facility] [address] [place] [address] Erythrocyte distribution width (RBC) [Ratio] 15.4 % High 11.5 - 14.5 [facility] Comment on above: Performed By: #### C BCDF #### [facility] [id number] [place] [address] Hematocrit (Bld) [Volume fraction] 42.9 % Normal 36.0 - 46.0 [facility] Comment on above: Performed By: #### C BCDF #### [facility] [address] [place] [address] Hemoglobin (Bld) [Mass/Vol] 13.4 g/dL Normal 12.0 - 16.0 [facility] Comment on above: Performed By: #### C BCDF #### [address] [address] Lymphocytes (Bld) [#/Vol] 1.01 10*3/uL Low 1.20 - 4.80 [facility] Comment on above: Performed By: #### C BCDF #### [facility] [id number] [place] [address] Lymphocytes/100 WBC (Bld) 17.8 % Normal 13.0 - 44.0 [facility] Comment on above: Performed By: #### C BCDF #### [facility] [id number] [place] [address] MCHC (RBC) [Mass/Vol] 31.2 g/dL Low 32.0 - 36.0 [facility] Comment on above: Performed By: #### C BCDF #### [facility] [id number] [place] [address] MCV (RBC) [Entitic vol] 86 fL Normal 80 - 100 [facility] Comment on above: Performed By: #### C BCDF #### [facility] [id number] [place] [address] Monocytes (Bld) [#/Vol] 0.45 10*3/uL Normal 0.10 - 1.00 [facility] Comment on above: Performed By: #### C BCDF #### [facility] [address] [facility] [place] [address] Monocytes/100 WBC (Bld) 7.9 % Normal 2.0 - 10.0 [facility] Comment on above: Performed By: #### C BCDF #### [facility] [address] [facility] [place] [address] Neutrophils (Bld) [#/Vol] 4.20 10*3/uL Normal 1.20 - 7.70 [facility] Comment on above: Performed By: #### C BCDF #### [facility] [id number] [place] [address] [place] [address] Neutrophils/100 WBC (Bld) 73.8 % Normal 40.0 - 80.0 [facility] Comment on above: Performed By: #### C BCDF #### [facility] [id number] [place] [address] [place] [facility] [place] [address] Platelets (Bld) [#/Vol] 217 10*3/uL Normal 150 - 450 [facility] Comment on above: Performed By: #### C BCDF #### [facility] [id number] [place] [address] [place] [address] RBC 4.97 x10E12/L Normal 4.00 - 5.20 [facility] Comment on above: Performed By: #### C BCDF #### [facility] [address] [facility] [place] [address] WBC (Bld) [#/Vol] 5.7 10*3/uL Normal 4.4 - 11.3 [facility] Comment on above: Performed By: #### C BCDF #### [facility] [address] [place] [address] COAGULATION SCREENon 023 aPTT Coag (Bld) [Time] 32 s Normal 26 - 39 [facility] Comment on above: Result Comment: THE APTT IS NO LONGER USED FOR MONITORING UNFRACTIONATED HEPARIN THERAPY. FOR MONITORING HEPARIN THERAPY, USE THE HEPARIN ASSAY. Performed By: #### F OLA2 #### [facility] [address] [place] [address] PT Coag (PPP) [Time] 11.8 s Normal 9.8 - 13.4 [facility] Comment on above: Performed By: #### F OLA2 #### [facility] [address] [place] [address] PT, INR 1.0 Normal 0.9 - 1.1 [facility] Comment on above: Performed By: #### F OLA2 #### [facility] [address] [place] [address] COMPREHENSIVE PANELon 2022 Albumin [Mass/Vol] 4.2 g/dL Normal 3.4 - 5.0 [facility] Comment on above: Performed By: #### F OLA2 #### [facility] [address] [place] [address] ALP [Catalytic activity/Vol] 61 U/L Normal 33 - 110 [facility] Comment on above: Performed By: #### F OLA2 #### [facility] [address] [place] [address] ALT [Catalytic activity/Vol] 20 U/L Normal 7 - 45 [facility] Comment on above: Result Comment: Dalila ents treated with Sulfasalazine may generate falsely decreased results for ALT. Performed By: #### F OLA2 #### [facility] [address] [place] [address] Anion gap [Moles/Vol] 13 mmol/L Normal 10 - 20 [facility] Comment on above: Performed By: #### F OLA2 #### [facility] [address] [place] [address] AST [Catalytic activity/Vol] 20 U/L Normal 9 - 39 [facility] Comment on above: Performed By: #### F OLA2 #### [facility] [address] [place] [address] Bilirubin [Mass/Vol] 0.5 mg/dL Normal 0.0 - 1.2 [facility] Comment on above: Performed By: #### F OLA2 #### [facility] [address] [place] [address] Calcium [Mass/Vol] 9.6 mg/dL Normal 8.6 - 10.3 [facility] Comment on above: Performed By: #### F OLA2 #### [facility] [address] [place] [address] Chloride [Moles/Vol] 102 mmol/L Normal 98 - 107 [facility] Comment on above: Performed By: #### F OLA2 #### [facility] [address] [place] [address] Creatinine [Mass/Vol] 0.87 mg/dL Normal 0.50 - 1.05 [facility] Comment on above: Performed By: #### F OLA2 #### [facility] [address] [place] [address] GFR/1.73 sq M.predicted among non-blacks MDRD (S/P/Bld) [Vol rate/Area] 79 mL/min/{1.73_m2} Normal >90 [facility] Comment on above: Result Comment: CALC ULATIONS OF ESTIMATED GFR ARE PERFORMED USING THE 2020 CKD-EPI STUDY REFIT EQUATION WITHOUT THE RACE VARIABLE FOR THE IDMS-TRACEABLE CREATININE METHODS. https://jasn.asnjournals.org/content//ASN.72995 98676 Performed By: #### F OLA2 #### [facility] [address] [place] [address] Glucose [Mass/Vol] 81 mg/dL Normal 74 - 99 [facility] Comment on above: Performed By: #### F OLA2 #### [facility] [address] [place] [address] HCO3 (Bld) [Moles/Vol] 25 mmol/L Normal 21 - 32 [facility] Comment on above: Performed By: #### F OLA2 #### [facility] [address] [place] [address] Potassium [Moles/Vol] 4.2 mmol/L Normal 3.5 - 5.3 [facility] Comment on above: Performed By: #### F OLA2 #### [facility] [address] [place] [address] Protein [Mass/Vol] 7.4 g/dL Normal 6.4 - 8.2 [facility] Comment on above: Performed By: #### F OLA2 #### [facility] [address] [place] [address] Sodium [Moles/Vol] 136 mmol/L Normal 136 - 145 [facility] Comment on above: Performed By: #### F OLA2 #### [facility] [address] [place] [address] Urea nitrogen [Mass/Vol] 21 mg/dL Normal 6 - 23 [facility] Comment on above: Performed By: #### F OLA2 #### [facility] [address] [place] [address] DRUG SCREEN,URINE WITH REFLE X TO CONFIRMATIONon 02-02-2023 AMPHETAMINE SCREEN,U Negative Normal NEGATIVE [facility] Comment on above: Result Comment: CUTO FF LEVEL: 500 NG/ML Cross-reactivity has been reported with high concentrations of the following drugs: buproprion, chloroquine, chlorpromazine, ephedrine, mephentermine, fenfluramine, phentermine, phenylpropanolamine, pseudoephedrine, and propranolol. Performed By: #### F OLA2 #### [facility] [address] [place] [address] BARBITURATES SCREEN,U Negative Normal NEGATIVE [facility] Comment on above: Result Comment: CUTO FF LEVEL: 200 NG/ML Performed By: #### F OLA2 #### [facility] [address] [place] [address] BENZODIAZEPINES SCREEN,U Negative Normal NEGATIVE [facility] Comment on above: Result Comment: CUTO FF LEVEL: 200 NG/ML Performed By: #### F OLA2 #### [facility] [address] [place] [address] CANNABINOIDS SCREEN,U Negative Normal NEGATIVE [facility] Comment on above: Result Comment: CUTO FF LEVEL: 50 NG/ML Performed By: #### F OLA2 #### [facility] [address] [place] [address] COCAINE METABOLITE SCREEN,U Negative Normal NEGATIVE [facility] Comment on above: Result Comment: CUTO FF LEVEL: 150 NG/ML Performed By: #### F OLA2 #### [facility] [address] [place] [address] DRUG SCREEN COMMENT SEE BELOW Normal [facility] Comment on above: Result Comment: Drug screen results are presumptive and should not be used to assess compliance with prescribed medication. Definitive confirmatory drug testing has been added to this sample for any positive screen result and will be reported separately. . Toxicology screening results are reported qualitatively. The concentration must be greater than or equal to the cutoff to be reported as positive. The concentration at which the screening test can detect an individual drug or metabolite varies. The absence of expected drug(s) and/or drug metabolite(s) may indicate non-compliance, inappropriate timing of specimen collection relative to drug administration, poor drug absorption, diluted/adulterated urine, or limitations of testing. For medical purposes only; not valid for forensic use. . Interpretive questions should be directed to the laboratory medical directors. Performed By: #### F OLA2 #### [facility] [address] [place] [address] FENTANYL SCREEN,URINE Negative Normal NEGATIVE [facility] Comment on above: Result Comment: CUTO FF LEVEL: 5 NG/ML Performed By: #### F OLA2 #### [facility] [address] [place] [address] METHADONE SCREEN,U Negative Normal NEGATIVE [facility] Comment on above: Result Comment: CUTO FF LEVEL: 150 NG/ML The metabolite A-aisze-bqbvplzzzeuqfp (LAAM) is not detected by this method in concentrations that would be found in the urine of patients on LAAM therapy. Performed By: #### F OLA2 #### [facility] [address] [place] [address] OPIATES SCREEN,U Negative Normal NEGATIVE [facility] Comment on above: Result Comment: CUTO FF LEVEL: 300 NG/ML The opiate screen does not detect fentanyl, meperidine, or tramadol. Oxycodone is not consistently detected (refer to Oxycodone Screen, Urine result). Performed By: #### F OLA2 #### [facility] [address] [place] [address] OXYCODONE SCREEN,U Negative Normal NEGATIVE [facility] Comment on above: Result Comment: CUTO FF LEVEL: 100 NG/ML This test will accurately detect both oxycodone and oxymorphone. Performed By: #### F OLA2 #### [facility] [address] [place] [address] PCP SCREEN,U Negative Normal NEGATIVE [facility] Comment on above: Result Comment: CUTO FF LEVEL: 25 NG/ML Cross-reactivity has been reported with dextromethorphan. Performed By: #### F OLA2 #### [facility] [address] [place] [id number] FERRITINon 02-02-2023 FERRITIN 84 ug/L Normal 8 - 150 [facility] Comment on above: Performed By: #### F OLA2 #### [facility] [address] [place] [id number] FOLATE, SERUMon 02-02-2023 Folate [Mass/Vol] 9.3 ng/mL Normal >5.0 [facility] Comment on above: Result Comment: Low <3.4 Borderline 3.4-5.0 Normal >5.0 . Biotin interference may cause falsely elevated results. Patients taking a Biotin dose of up to 5 mg/day should refrain from taking Biotin for 24 hours before sample collection. Providers may contact their local laboratory for further information. Performed By: #### F OLA2 #### [facility] [address] [place] [id number] HEMOGLOBIN A1Con 02-02-2023 Glucose [Mass/Vol] 120 mg/dL Normal [facility] Comment on above: Performed By: #### H BA1E #### [facility] [address] [place] [id number] HbA1c (Bld) [Mass fraction] 5.8 % Abnormal [facility] Comment on above: Result Comment: Diag nosis of Diabetes-Adults Non-Diabetic: < or = 5.6% Increased risk for developing diabetes: 5.7-6.4% Diagnostic of diabetes: > or = 6.5% . Monitoring of Diabetes Age (y) Therapeutic Goal (%) Adults: >18 <7.0 Pediatrics: 13-18 <7.5 7-12 <8.0 0- 6 7.5-8.5 [place] [employer]. Diabetes Care 33(S1), Nov 2009. Performed By: #### H BA1E #### [facility] [address] [place] [address] IRON + TIBCon 02-02-2023 % SATURATION 16 % Low 25 - 45 [facility] Comment on above: Performed By: #### F OLA2 #### [facility] [address] [place] [address] Iron [Mass/Vol] 64 ug/dL Normal 35 - 150 [facility] Comment on above: Performed By: #### F OLA2 #### [facility] [address] [place] [address] TIBC 400 ug/dL Normal 240 - 445 [facility] Comment on above: Performed By: #### F OLA2 #### [facility] [address] [place] [address] LIPID PANEL (CORONARY RISK 2 )on 02-02-2023 Cholesterol [Mass/Vol] 144 mg/dL Normal 0 - 199 [facility] Comment on above: Result Comment: . AGE DESIRABLE BORDERLINE HIGH HIGH 0-19 Y 0 - 169 170 - 199 >/= 200 20-24 Y 0 - 189 190 - 224 >/= 225 >24 Y 0 - 199 200 - 239 >/= 240 All ranges are based on fasting samples. Specific therapeutic targets will vary based on patient-specific cardiac risk. . Pediatric guidelines reference:Pediatrics 2011, 128(S5). Adult guidelines reference: NCEP ATPIII Guidelines, ABBIE 2001, 258:2486-97 . Venipuncture immediately after or during the administration of Metamizole may lead to falsely low results. Testing should be performed immediately prior to Metamizole dosing. Performed By: #### F OLA2 #### [facility] [address] [place] [address] Cholesterol in HDL [Mass/Vol] 48.8 mg/dL Normal [facility] Comment on above: Result Comment: . AGE VERY LOW LOW NORMAL HIGH 0-19 Y < 35 < 40 40-45 ---- 20-24 Y ---- < 40 >45 ---- >24 Y ---- < 40 40-60 >60 . Performed By: #### F OLA2 #### [facility] [address] [place] [address] Cholesterol in LDL [Mass/Vol] 74 mg/dL Normal 0 - 99 [facility] Comment on above: Result Comment: . NEAR BORD AGE DESIRABLE OPTIMAL HIGH HIGH VERY HIGH 0-19 Y 0 - 109 --- 110-129 >/= 130 ---- 20-24 Y 0 - 119 --- 120-159 >/= 160 ---- >24 Y 0 - 99 100-129 130-159 160-189 >/=190 . Performed By: #### F OLA2 #### [facility] [address] [place] [address] Cholesterol in VLDL [Mass/Vol] 21 mg/dL Normal 0 - 40 [facility] Comment on above: Performed By: #### F OLA2 #### [facility] [address] [place] [address] Cholesterol.total/Chol esterol in HDL [Mass ratio] 3.0 {ratio} Normal [facility] Comment on above: Result Comment: REF VALUES DESIRABLE < 3.4 HIGH RISK > 5.0 Performed By: #### F OLA2 #### [facility] [address] [place] [address] Triglyceride [Mass/Vol] 107 mg/dL Normal 0 - 149 [facility] Comment on above: Result Comment: . AGE DESIRABLE BORDERLINE HIGH HIGH VERY HIGH 0 D-90 D 19 - 174 ---- ---- ---- 91 D- 9 Y 0 - 74 75 - 99 >/= 100 ---- 10-19 Y 0 - 89 90 - 129 >/= 130 ---- 20-24 Y 0 - 114 115 - 149 >/= 150 ---- >24 Y 0 - 149 150 - 199 200- 499 >/= 500 . Venipuncture immediately after or during the administration of Metamizole may lead to falsely low results. Testing should be performed immediately prior to Metamizole dosing. Performed By: #### F OLA2 #### [facility] [address] [place] [address] THYROXINE,FREEon 02-02-2023 THYROXINE,FREE 0.88 ng/dL Normal 0.61 - 1.12 [facility] Comment on above: Result Comment: Thyr oxine Free testing is performed using different testing methodology at [facility] than at located within [facility]. Direct result comparisons should only be made within the same method. . Biotin can cause falsely elevated free T4 results. Patients taking a Biotin dose of up to 10 mg/day should refrain from taking Biotin for 24 hours before sample collection. Patient taking a Biotin dose of >10 mg/day should consult with their physician or the laboratory before the blood draw. Performed By: #### T 4FRE #### [facility] [address] [place] [address] TSHon 02-02-2023 TSH Qn 3.64 m[IU]/L Normal 0.44 - 3.98 [facility] Comment on above: Result Comment: TSH testing is performed using different testing methodology at [facility] than at located within [facility]. Direct result comparisons should only be made within the same method. Performed By: #### T SH2 #### [facility] [address] [place] [address] VITAMIN B12on 02-02-2023 Cobalamin (Vitamin B12) [Mass/Vol] 258 pg/mL Normal 211 - 911 [facility] Comment on above: Performed By: #### V [id number] #### [facility] [address] [place] [address] VITAMIN D, 25-HYDROXYon VITAMIN D, 25-HYDROXY 27 ng/mL Abnormal [facility] Comment on above: Result Comment: . DEFICIENCY: < 20 NG/ML INSUFFICIENCY: 20-29 NG/ML SUFFICIENCY: 30-100 NG/ML THIS ASSAY ACCURATELY QUANTIFIES THE SUM OF VITAMIN D3, 25-HYDROXY AND VIT D2,25-HYDROXY. Performed By: #### F [id number] #### [facility] [address] [place] [address] Laboratory - Chemistry and C hemistry - challengeon 09-10-2022 Albumin [Mass/Vol] 4.3 g/dL Normal 3.6 - 5.1 g/dL [facility]. Albumin/Globulin [Mass ratio] 1.3 {ratio} Normal 1.0 - 2.5 [facility]. ALP [Catalytic activity/Vol] 71 U/L Normal 37 - 153 U/L [facility] ALT [Catalytic activity/Vol] 18 U/L Normal 6 - 29 U/L [facility]. AST [Catalytic activity/Vol] 17 U/L Normal 10 - 35 U/L [facility]. Bilirubin [Mass/Vol] 0.4 mg/dL Normal 0.2 - 1 .2 mg/dL [facility]. Bilirubin Ql (U) Negative Normal [facility]; [facility] Calcium [Mass/Vol] 9.4 mg/dL Normal 8.6 - 10. 4 mg/dL [facility]. Chloride [Moles/Vol] 101 mmol/L Normal 98 - 11 0 mmol/L [facility]; [facility]. CO2 [Moles/Vol] 28 mmol/L Normal 20 - 32 mmol/L [facility].; [facility]. Cobalamin (Vitamin B12) [Mass/Vol] 296 pg/mL Normal 200 - 1100 pg/mL [facility].; [place] [facility]. Creatinine [Mass/Vol] 0.85 mg/dL Normal 0.50 - 1.03 mg/dL [facility].; [place] [facility]. GFR/1.73 sq M.predicted among non-blacks MDRD (S/P/Bld) [Vol rate/Area] 81 mL/min/{1.73_m2} Normal [facility].; [facility], [facility]. Glucose [Mass/Vol] 98 mg/dL Normal 65 - 99 mg/dL [facility].; [place] [employer] [facility] Ketones Ql (U) Negative Normal [facility].; [facility]. Magnesium [Mass/Vol] 2.2 mg/dL Normal 1.5 - 2 .5 mg/dL [facility].; [place] [facility]. pH (U) 5.5 [pH] Normal [facility].; [place] [employer] [facility]. Potassium [Moles/Vol] 4.7 mmol/L Normal 3.5 - 5.3 mmol/L [facility].; [place] [facility]. Protein [Mass/Vol] 7.6 g/dL Normal 6.1 - 8.1 g/dL [facility].; [place] [facility]. Sodium [Moles/Vol] 136 mmol/L Normal 135 - 146 mmol/L [facility].; [place] [facility]. Specific gravity (U) [Rel density] 1.020 Normal [facility]; [place] [employer] [facility] Urea nitrogen [Mass/Vol] 18 mg/dL Normal 7 - 25 mg/dL [facility].; [place] [employer] [facility]. Urobilinogen Qn (U) 0.2 mg/dL Normal [facility].; [place] [facility]. Laboratory - Hematology and Cell countson 09-10-2022 Basophils (Bld) [#/Vol] 0.007 10*3/uL Normal 0 - 200 {cells/uL} [facility].; [place] [employer] [facility]. Basophils/100 WBC (Bld) 0.1 % Normal [facility].; [place] [facility]. Eosinophils (Bld) [#/Vol] 0 10*3/uL Abnormal 15 - 500 {cells/uL} [facility].; [place] [employer] [facility]. Eosinophils/100 WBC (Bld) 0.0 % Normal [facility]; [place] [facility] Erythrocyte distribution width (RBC) [Ratio] 14.4 % Normal 11.0 - 15.0 % [place] [facility].; [email or web address]. HbA1c (Bld) [Mass fraction] 5.6 % Normal [facility].; [place] [facility]. Hematocrit (Bld) [Volume fraction] 41.8 % Normal 35.0 - 45.0 % [facility], [facility].; [facility], [facility]. Hemoglobin (Bld) [Mass/Vol] 13.4 g/dL Normal 11.7 - 15.5 g/dL [facility], [facility].; [facility], [facility]. Hemoglobin Ql (U) Trace, hemolyzed Abnormal [facility].; [facility], [facility] Lymphocytes (Bld) [#/Vol] 1.213 10*3/uL Normal 850 - 3900 {cells/uL} [facility], [facility].; [facility], [facility]. Lymphocytes/100 WBC (Bld) 18.1 % Normal [facility].; [facility], [facility]. MCH (RBC) [Entitic mass] 27.2 pg Normal 27.0 - 33.0 pg [facility], [facility].; [place] [employer], [facility]. MCHC (RBC) [Mass/Vol] 32.1 g/dL Normal 32.0 - 36.0 g/dL [facility].; [place] [employer], [facility]. MCV (RBC) [Entitic vol] 84.8 fL Normal 80.0 - 100.0 fL [facility], [facility].; [place] [employer] [facility], [facility]. Monocytes (Bld) [#/Vol] 0.469 10*3/uL Normal 200 - 950 {cells/uL} [facility], [facility].; [place], [facility]. Monocytes/100 WBC (Bld) 7.0 % Normal [facility].; [facility], [facility]. Neutrophils (Bld) [#/Vol] 5.012 10*3/uL Normal 1500 - 7800 {cells/uL} [facility], [facility].; [place], [facility]. Neutrophils/100 WBC (Bld) 74.8 % Normal [facility].; [place] [employer], [facility]. Platelet mean volume (Bld) [Entitic vol] 9.7 fL Normal 7.5 - 12.5 fL [facility], [facility].; [place] [employer] Platelets (Bld) [#/Vol] 239 10*3/uL Normal 140 - 400 [facility].; [facility], [facility]. RBC (Bld) [#/Vol] 4.93 10*6/uL Normal 3.80 - 5.1 0 {Million/uL} [facility]; [place] [facility] WBC (Bld) [#/Vol] 6.7 10*3/uL Normal 3.8 - 10.8 [facility], [facility].; [employer] Laboratory - Specimen inform ationon 09-10-2022 Appearance (U) clear Normal [facility]; [place] [employer] [facility] Color (U) Dark Yellow Normal [facility]; [employer], [facility] Laboratory - Urinalysison Glucose Test strip (U) [Mass/Vol] Negative Normal [facility]; [place] [employer] [facility], [facility] Leukocyte esterase Test strip Ql (U) Negative Normal [facility]; [employer] Protein Ql (U) Negative Normal [facility]; [facility] Laboratory - UrinalysisOrder ed By: Ashley Torres on 09-10-2022 Nitrite Ql (U) Positive Abnormal [facility]; [facility] No Panel Informationon 09-10 BUN/CREATININE RATIO NOT APPLICABLE Normal 6 - [facility]; [facility] CULTURE, URINE, ROUTINE SEE NOTE Abnormal [facility]; [facility] GLOBULIN 3.3 Normal 1.9 - 3.7 [facility]; [employer], [facility] TSH W/REFLEX TO FT4 3.38 {mIU/L} Normal [facility]; [facility] Laboratory - Chemistry and C hemistry - challengeon 02-28-2022 Calcium [Mass/Vol] 9.0 mg/dL Normal 8.6 - 10. 4 mg/dL [facility]; [employer], [facility]. Chloride [Moles/Vol] 104 mmol/L Normal 98 - 11 0 mmol/L [facility], [facility]; [place], [facility] CO2 [Moles/Vol] 25 mmol/L Normal 20 - 32 mmol/L [facility]; [place] [facility]. Creatinine [Mass/Vol] 0.85 mg/dL Normal 0.50 - 1.05 mg/dL [facility].; [place] [facility] GFR/1.73 sq M.predicted among blacks MDRD (S/P/Bld) [Vol rate/Area] 90 mL/min/{1.73_m2} Normal [facility]; [place] [employer] [facility] Glucose [Mass/Vol] 94 mg/dL Normal 65 - 99 mg/dL [facility].; [place] [facility] Potassium [Moles/Vol] 4.3 mmol/L Normal 3.5 - 5.3 mmol/L [facility].; [place] [employer] [facility], [facility] Sodium [Moles/Vol] 139 mmol/L Normal 135 - 146 mmol/L [facility]; [place] [employer] Urea nitrogen [Mass/Vol] 17 mg/dL Normal 7 - 25 mg/dL [facility]; [place] [employer] [facility] No Panel Informationon 02-28 BUN/CREATININE RATIO NOT APPLICABLE Normal 6 - 22 [facility].; [place] [employer] [facility] eGFR NON-AFR. COMORAN [address] [facility]; [place] [facility] US SOFT TISSUEon 02-27-2022 US SOFT TISSUE EXAM: US SOFT TISSUE HISTORY: NODULE OF SOFT TISSUE COMPARISON: None. TECHNIQUE: Real-time grayscale and color Doppler ultrasound examination of the right lower back in the region of concern was performed. FINDINGS: There is a 0.9 x 1.0 x 1.0 cm slightly hyperechoic nodule within the right lower back subcutaneous tissues with slight internal blood flow on color Doppler interrogation. IMPRESSION: 1. Suspected lipoma within the right lower back subcutaneous tissues measuring up to 0.9 x 1.0 x 1.0 cm. If there is associated pain and/or an increase in size of the lesion, consider further evaluation with a contrast-enhanced MRI examination to exclude a lipomatous malignancy. Normal [facility] US Unspecified body regionon 02-27-2022 IMPRESSION: 1. Suspected lipoma within the right lower back subcutaneous tissues measuring up to 0.9 x 1.0 x 1.0 cm. If there is associated pain and/or an increase in size of the lesion, consider further evaluation with a contrast-enhanced MRI examination to exclude a lipomatous malignancy. RADIOLOGY EXAM: US SOFT TISSUE HISTORY: NODULE OF SOFT TISSUE COMPARISON: None. TECHNIQUE: Real-time grayscale and color Doppler ultrasound examination of the right lower back in the region of concern was performed. FINDINGS: There is a 0.9 x 1.0 x 1.0 cm slightly hyperechoic nodule within the right lower back subcutaneous tissues with slight internal blood flow on color Doppler interrogation. RADIOLOGY Won Hagan MD - 02/27/2022 EXAM: US SOFT TISSUE HISTORY: NODULE OF SOFT TISSUE COMPARISON: None. TECHNIQUE: Real-time grayscale and color Doppler ultrasound examination of the right lower back in the region of concern was performed. FINDINGS: There is a 0.9 x 1.0 x 1.0 cm slightly hyperechoic nodule within the right lower back subcutaneous tissues with slight internal blood flow on color Doppler interrogation. IMPRESSION IMPRESSION: 1. Suspected lipoma within the right lower back subcutaneous tissues measuring up to 0.9 x 1.0 x 1.0 cm. If there is associated pain and/or an increase in size of the lesion, consider further evaluation with a contrast-enhanced MRI examination to exclude a lipomatous malignancy. [facility] [place] Unspecified body regionOr dered By: Won Hagan on 02-27-2022 [facility] Work Phone: [place] Unspecified body regionon 02-26-2022 Radiology Study observation (narrative) [facility] Laboratory - Chemistry and C hemistry - challengeon 02-21-2022 Calcium [Mass/Vol] 9.5 mg/dL Normal 8.6 - 10. 4 mg/dL [facility] [facility] [employer] Chloride [Moles/Vol] 102 mmol/L Normal 98 - 11 0 mmol/L [employer] [facility] [employer] CO2 [Moles/Vol] 28 mmol/L Normal 20 - 32 mmol/L [employer] Creatinine [Mass/Vol] 0.93 mg/dL Normal 0.50 - 1.05 mg/dL [facility]. GFR/1.73 sq M.predicted among blacks MDRD (S/P/Bld) [Vol rate/Area] 81 mL/min/{1.73_m2} Normal [facility].; [facility], [facility] Glucose [Mass/Vol] 94 mg/dL Normal 65 - 99 mg/dL [facility] Natriuretic peptide B (Bld) [Mass/Vol] 84 pg/mL Normal [facility]; [facility], [facility] Potassium [Moles/Vol] 4.4 mmol/L Normal 3.5 - 5.3 mmol/L [facility]; [facility], [facility] Sodium [Moles/Vol] 140 mmol/L Normal 135 - 146 mmol/L [facility]; [facility], [facility] Urea nitrogen [Mass/Vol] 14 mg/dL Normal 7 - 25 mg/dL [facility] Laboratory - Hematology and Cell countson 02-21-2022 Basophils (Bld) [#/Vol] 0.011 10*3/uL Normal 0 - 200 {cells/uL} [facility] Basophils/100 WBC (Bld) 0.2 % Normal [facility]; [facility], [facility] Eosinophils (Bld) [#/Vol] 0 10*3/uL Abnormal 15 - 500 {cells/uL} [facility] Eosinophils/100 WBC (Bld) 0.0 % Normal [facility]; [facility] Erythrocyte distribution width (RBC) [Ratio] 15.0 % Normal 11.0 - 15.0 % [facility].; [facility], [facility]. Hematocrit (Bld) [Volume fraction] 40.8 % Normal 35.0 - 45.0 % [facility], [facility].; [facility], [facility] Hemoglobin (Bld) [Mass/Vol] 12.9 g/dL Normal 11.7 - 15.5 g/dL [facility] [employer] [facility]. Lymphocytes (Bld) [#/Vol] 1.025 10*3/uL Normal 850 - 3900 {cells/uL} [facility].; [place] [employer] [facility]. Lymphocytes/100 WBC (Bld) 18.3 % Normal [facility].; [place] [employer], [facility]. MCH (RBC) [Entitic mass] 25.5 pg Abnormal 27.0 - 33.0 pg [facility].; [place] [employer], [facility]. MCHC (RBC) [Mass/Vol] 31.6 g/dL Abnormal 32.0 - 36.0 g/dL [facility].; [place], [facility]. MCV (RBC) [Entitic vol] 80.8 fL Normal 80.0 - 100.0 fL [facility].; [place] [employer], [facility]. Monocytes (Bld) [#/Vol] 0.42 10*3/uL Normal 200 - 950 {cells/uL} [facility] [employer] [facility].; [place], [facility]. Monocytes/100 WBC (Bld) 7.5 % Normal [facility].; [place] [employer] [facility]. Neutrophils (Bld) [#/Vol] 4.144 10*3/uL Normal 1500 - 7800 {cells/uL} [place] [employer] [facility].; [place] [employer], [facility]. Neutrophils/100 WBC (Bld) 74 % Normal [place] [employer] [facility].; [employer]. Platelet mean volume (Bld) [Entitic vol] 10.0 fL Normal 7.5 - 12.5 fL [place] [facility].; [place], [facility]. Platelets (Bld) [#/Vol] 227 10*3/uL Normal 140 - 400 [employer].; [place], [employer]. RBC (Bld) [#/Vol] 5.05 10*6/uL Normal 3.80 - 5.1 0 {Million/uL} [place] [employer] [facility].; [employer] WBC (Bld) [#/Vol] 5.6 10*3/uL Normal 3.8 - 10.8 [employer].; [employer]. No Panel Informationon 02-21 BUN/CREATININE RATIO NOT APPLICABLE Normal 6 - 22 [facility]; [facility] eGFR NON-AFR. COMORAN 70 Normal [facility]; [facility] TSH W/REFLEX TO FT4 2.98 {mIU/L} Normal [facility]; [facility] Laboratory - Chemistry and C hemistry - challengeon 08-12-2021 Albumin [Mass/Vol] 4.0 g/dL Normal 3.6 - 5.1 g/dL [facility]; [facility] Albumin/Globulin [Mass ratio] 1.3 {ratio} Normal 1.0 - 2.5 [facility]; [facility] ALP [Catalytic activity/Vol] 71 U/L Normal 37 - 153 U/L [facility]; [facility], [facility] ALT [Catalytic activity/Vol] 15 U/L Normal 6 - 29 U/L [facility]; [facility] AST [Catalytic activity/Vol] 13 U/L Normal 10 - 35 U/L [facility]; [facility], [facility] Bilirubin [Mass/Vol] 0.3 mg/dL Normal 0.2 - 1 .2 mg/dL [facility]; [facility], [facility] Bilirubin Ql (U) Negative Normal [facility]; [facility] Calcium [Mass/Vol] 9.4 mg/dL Normal 8.6 - 10. 4 mg/dL [facility]; [facility], [facility] Chloride [Moles/Vol] 103 mmol/L Normal 98 - 11 0 mmol/L [facility]; [facility], [facility] CO2 [Moles/Vol] 25 mmol/L Normal 20 - 32 mmol/L [facility]; [facility], [facility] Creatinine [Mass/Vol] 1.05 mg/dL Normal 0.50 - 1.05 mg/dL [facility]; [facility], [facility] GFR/1.73 sq M.predicted among blacks MDRD (S/P/Bld) [Vol rate/Area] 70 mL/min/{1.73_m2} Normal [facility]; [facility] Glucose [Mass/Vol] 93 mg/dL Normal 65 - 99 mg/dL [facility]; [place] [employer] [facility] Ketones Ql (U) Negative Normal [facility]; [facility] pH (U) 5.0 [pH] Abnormal [facility]; [facility] Potassium [Moles/Vol] 4.4 mmol/L Normal 3.5 - 5.3 mmol/L [facility]; [facility] Protein [Mass/Vol] 7.1 g/dL Normal 6.1 - 8.1 g/dL [facility]; [place] [employer] [facility] Sodium [Moles/Vol] 138 mmol/L Normal 135 - 146 mmol/L [facility]; [place] [employer] [facility] [facility] Specific gravity (U) [Rel density] 1.020 Normal [facility]; [place] [facility] Urea nitrogen [Mass/Vol] 20 mg/dL Normal 7 - 25 mg/dL [facility]; [place] Urobilinogen Qn (U) 0.2 mg/dL Normal [facility]; [place] [facility] Laboratory - Hematology and Cell countson 08-12-2021 Basophils (Bld) [#/Vol] 0.007 10*3/uL Normal 0 - 200 {cells/uL} [facility]; [place] [facility] Basophils/100 WBC (Bld) 0.1 % Normal [facility]; [place] [facility] Eosinophils (Bld) [#/Vol] 0.455 10*3/uL Normal 15 - 500 {cells/uL} [facility]; [place] [facility] Eosinophils/100 WBC (Bld) 6.6 % Normal [facility]; [place] [facility] Erythrocyte distribution width (RBC) [Ratio] 21.9 % Abnormal 11.0 - 15.0 % [facility]; [facility]. Hematocrit (Bld) [Volume fraction] 36.5 % Normal 35.0 - 45.0 % [facility].; [facility], [facility] Hemoglobin (Bld) [Mass/Vol] 11.3 g/dL Abnormal 11.7 - 15.5 g/dL [facility], [facility]. Hemoglobin Ql (U) trace-lysed Normal [facility].; [facility], [facility] Lymphocytes (Bld) [#/Vol] 1.622 10*3/uL Normal 850 - 3900 {cells/uL} [facility].; [facility], [facility]. Lymphocytes/100 WBC (Bld) 23.5 % Normal [facility]; [facility], [facility]. MCH (RBC) [Entitic mass] 27.0 pg Normal 27.0 - 33.0 pg [facility].; [facility], [facility]. MCHC (RBC) [Mass/Vol] 31.0 g/dL Abnormal 32.0 - 36.0 g/dL [facility].; [facility], [facility]. MCV (RBC) [Entitic vol] 87.3 fL Normal 80.0 - 100.0 fL [facility].; [facility], [facility]. Monocytes (Bld) [#/Vol] 0.545 10*3/uL Normal 200 - 950 {cells/uL} [facility], [facility].; [facility], [facility]. Monocytes/100 WBC (Bld) 7.9 % Normal [facility].; [facility], [facility]. Neutrophils (Bld) [#/Vol] 4.271 10*3/uL Normal 1500 - 7800 {cells/uL} [facility].; [facility] [employer], [facility]. Neutrophils/100 WBC (Bld) 61.9 % Normal [facility].; [place] [facility], [facility]. Platelet mean volume (Bld) [Entitic vol] 9.8 fL Normal 7.5 - 12.5 fL [facility].; [place], [facility]. Platelets (Bld) [#/Vol] 292 10*3/uL Normal 140 - 400 [place] [employer].; [employer]. RBC (Bld) [#/Vol] 4.18 10*6/uL Normal 3.80 - 5.1 0 {Million/uL} [email or web address].; Yedda, [employer]. WBC (Bld) [#/Vol] 6.9 10*3/uL Normal 3.8 - 10.8 [facility] [employer].; [employer]. Laboratory - Specimen inform ationon 08-12-2021 Appearance (U) cloudy Abnormal [email or web address].; [employer], [employer]. Color (U) dark Yellow Normal [email or web address].; [employer]. Laboratory - Urinalysison Glucose Test strip (U) [Mass/Vol] Negative Normal [email or web address].; [employer], [employer]. Leukocyte esterase Test strip Ql (U) moderate Abnormal [email or web address].; [employer], [employer]. Nitrite Ql (U) Negative Normal [email or web address].; [employer]. Protein Ql (U) Negative Normal [email or web address].; [employer]. No Panel Informationon 08-12 BUN/CREATININE RATIO NOT APPLICABLE Normal 6 - Jha [employer].; [employer]. CBC MORPHOLOGY SEE NOTE Normal [email or web address].; [employer]. Work Phone: CULTURE, URINE, ROUTINE SEE NOTE Normal [email or web address].; [employer]. eGFR NON-AFR. COMORAN 61 Normal [facility] [employer].; [employer]. GLOBULIN 3.1 Normal 1.9 - 3.7 [email or web address]. Basic Metabolic Panelon Anion gap [Moles/Vol] 6 mmol/L Normal 3-13 [facility] Comment on above: Performed By: #### H MD AVANIIFF, PHOS3, BMP3, MG3 ####[facility] [employer] [address] [address]#### OSM ####[facility] [place] [address] Calcium [Mass/Vol] 8.7 mg/dL Normal 8.4-10.4 [facility] Comment on above: Performed By: #### H AVANI, MDIFF, PHOS3, BMP3, MG3 ####[place] [id number] [place] [address]#### OSM ####[facility] [place] [address] CO2 [Moles/Vol] 27 mmol/L Normal 22-30 [facility] Comment on above: Performed By: #### H EMDApril, MDIFF, PHOS3, BMP3, MG3 ####[place] [id number], [place] #### OSM ####[place] [address] [place] [address] Glucose [Mass/Vol] 96 mg/dL Normal 70-100 [facility] Comment on above: Performed By: #### H AVANI, MDIFF, PHOS3, BMP3, MG3 ####[place] [address] [place], [place] #### OSM ####[facility] [place] [address] Urea nitrogen [Mass/Vol] 53 mg/dL High 7-20 [facility] Comment on above: Performed By: #### H AVANI, TYLER, PHOS3, BMP3, MG3 ####[place] [id number], [place] #### OSM ####[facility] [place] [address] Creatinine [Mass/Vol] 2.25 mg/dL High 0.52-1.25 [facility] Comment on above: Performed By: #### H EMDApril, MDIFF, PHOS3, BMP3, MG3 ####[place] [id number], [place] #### OSM ####[facility] [place] [address] GFR/1.73 sq M.predicted among blacks MDRD (S/P/Bld) [Vol rate/Area] 27.9 mL/min/{1.73_m2} Abnormal >60 [facility] Comment on above: Performed By: #### H TYLER VARMA, PHOS3, BMP3, MG3 ####[employer] [place], [place] #### OSM ####[facility] [employer] [address] [place] [address] GFR/1.73 sq M.predicted among non-blacks MDRD (S/P/Bld) [Vol rate/Area] 24.0 mL/min/{1.73_m2} Abnormal >60 [facility] Comment on above: Result Comment: KDIG O guidelines provide the following GFR categories:Stage GFR(ml/min/1.73 m2) TermsG1 >=90 Normal or highG2 60-89 Mildly decreased*G3a 45-59 Mildly to moderately ghahjryaxE6n 30-44 Moderately to severely decreasedG4 15-29 Severely decreasedG5 <15 Kidney failure*Relative to young adult level.In the absence of evidence of kidney damage, neither GFRcategory G1 nor G2 fulfill the criteria for CKD.The CKD-EPI equation is validated in individuals 18 yearsof age and older. Currently the best equation forestimating glomerular filtration rate (GFR) from serumcreatinine in children is the Bedside Arechiga equation.It is less accurate in patients with extremes of musclemass, restriction of dietary protein, ingestion of creatine,extra-renal metabolism of creatinine, or treatment withmedications that affect renal tubular creatinine secretion. Performed By: #### H TYLER VARMA, PHOS3, BMP3, MG3 ####[employer] [place], [place] #### OSM ####[employer] [facility] [place] [address] Potassium [Moles/Vol] 4.6 mmol/L Normal 3.5-5.1 [facility] Comment on above: Performed By: #### H TYLER VARMA, PHOS3, BMP3, MG3 ####[employer] [place], [place] #### OSM ####[facility] [employer] [address] [place] [address] Chloride [Moles/Vol] 105 mmol/L Normal 98-107 [facility] Comment on above: Performed By: #### H TYLER VARMA, PHOS3, BMP3, MG3 ####[facility] [employer] [address] [place] [address]#### OSM ####[facility] [employer] [address] [place] [address] Sodium [Moles/Vol] 139 mmol/L Normal 135-145 [facility] Comment on above: Performed By: #### H TYLER VARMA, PHOS3, BMP3, MG3 ####[facility] Center[facility] Brands [address] [place] [address]#### OSM ####[facility] [employer] [address] [place] [address] Basic Metabolic PanelOrdered By: Silver Nick on 07-03-2021 Anion gap [Moles/Vol] 6 mmol/L 3 - 13 mmol/L [facility] Work Phone: Calcium [Mass/Vol] 8.7 mg/dL 8.4 - 10. 4 mg/dL [facility] Work Phone: Chloride [Moles/Vol] 105 mmol/L 98 - 10 7 mmol/L [facility] Work Phone: CO2 [Moles/Vol] 27 mmol/L 22 - 30 mmol/L [facility] Work Phone: Creatinine [Mass/Vol] 2.25 mg/dL High 0.52 - 1.25 mg/dL [facility] Work Phone: EGFR IF NonAfrican [place] 24.0 mL/min Abnormal >60 [facility] Work Phone: GFR/1.73 sq M.predicted among blacks MDRD (S/P/Bld) [Vol rate/Area] 27.9 mL/min/{1.73_m2} Abnormal >60 [facility] Work Phone: Glucose [Mass/Vol] 96 mg/dL 70 - 100 mg/dL [facility] Work Phone: [phone] Potassium [Moles/Vol] 4.6 mmol/L 3.5 - 5.1 mmol/L [facility] Work Phone: Sodium [Moles/Vol] 139 mmol/L 135 - 145 mmol/L [employer] Work Phone: [phone] Urea nitrogen (BldV) [Mass/Vol] 53 mg/dL High 7 - 20 mg/dL [facility] Work Phone: CBC auto differentialOrdered By: Michelle Petty on 07-03-2021 Hematocrit (Bld) [Volume fraction] 28.3 % Low 35.0 - 47.0 % [facility] Work Phone: [phone] Hemoglobin.gastrointes tinal spec 1 Ql (Stl) 8.9 g/dL Low 11.7 - 16.0 g/dL [employer] Work Phone: [phone] Interpretation and review of laboratory results Abnormal [facility] Work Phone: MCH (RBC) [Entitic mass] 24.2 pg Low 26.0 - 34.0 pg [facility] Work Phone: MCHC (RBC) [Mass/Vol] 31.5 % Low 32.0 - 36.0 % [facility] Work Phone: MCV (RBC) [Entitic vol] 76.9 fL Low 79.0 - 98.0 fL [facility] Work Phone: Platelet distribution width (Bld) [Ratio] 24.5 % High 11.5 - 14.5 % [facility] Work Phone: Platelet mean volume (Bld) [Entitic vol] 6.8 fL Low 7.4 - 10.4 fL [facility] Work Phone: Platelets (Bld) [#/Vol] 229 10*3/uL 140 - 440 10*3/uL [facility] Work Phone: RBC (Bld) [#/Vol] 3.68 10*6/uL Low 3.80 - 5.2 0 10*6/uL [facility] Work Phone: WBC (Bld) [#/Vol] 5.0 10*3/uL 3.6 - 10.7 10*3/uL [facility] Work Phone: [facility] Work Phone: [facility] Work Phone: Glucose,Bedsideon 07-03-2021 Glucose [Mass/Vol] 121 mg/dL High 70-100 [facility] Comment on above: Result Comment: Test performed by glucose meter. Results may be 10%-15% lowerthan serum/plasma values. (CLIA ID [id number]) Performed By: #### B GLU ####[employer] [place] [address] Glucose [Mass/Vol] 121 mg/dL High 70-100 [facility] Comment on above: Result Comment: Test performed by glucose meter. Results may be 10%-15% lowerthan serum/plasma values. (CLIA ID [id number]) Performed By: #### B GLU ####[employer] [place] [address] Glucose [Mass/Vol] 103 mg/dL High 70-100 [facility] Comment on above: Result Comment: Test performed by glucose meter. Results may be 10%-15% lowerthan serum/plasma values. (CLIA ID [id number]) Performed By: #### B GLU ####[employer] [place] [address] Hemogram w/ Autodiffon 07-03 Erythrocyte distribution width (RBC) [Ratio] 24.5 % High 11.5-14.5 [facility] Comment on above: Performed By: #### H TYLER VARMA, PHOS3, BMP3, MG3 ####[employer] [place], [place] #### OSM ####[employer] [place] [address] Hematocrit (Bld) [Volume fraction] 28.3 % Low 35.0-47.0 [facility] Comment on above: Performed By: #### H TYLER VARMA, PHOS3, BMP3, MG3 ####[place] [address] [place], [place] #### OSM ####[facility] [place] [address] Hemoglobin (Bld) [Mass/Vol] 8.9 g/dL Low 11.7-16.0 [facility] Comment on above: Performed By: #### H AVANI, TYLER, PHOS3, BMP3, MG3 ####[place] [address] [place], [place] #### OSM ####[facility] [place] [address] MCH (RBC) [Entitic mass] 24.2 pg Low 26.0-34.0 [facility] Comment on above: Performed By: #### H AVANI, MDIFF, PHOS3, BMP3, MG3 ####[address] #### OSM ####[address] [place] [address] MCHC 31.5 % Low 32.0-36.0 [facility] Comment on above: Performed By: #### H AVANI, IFF, PHOS3, BMP3, MG3 ####[place] [address] [place], [place] #### OSM ####[facility] [facility] [address] [place] MCV (RBC) [Entitic vol] 76.9 fL Low 79.0-98.0 [facility] Comment on above: Performed By: #### H AVANI, MDIFF, PHOS3, BMP3, MG3 ####[address] #### OSM ####[facility] [place], [place] Platelet mean volume (Bld) [Entitic vol] 6.8 fL Low 7.4-10.4 [facility] Comment on above: Performed By: #### H AVANI, MDIFF, PHOS3, BMP3, MG3 ####[facility] [place], [place] #### OSM ####[facility] [place] [address] Platelets (Bld) [#/Vol] 229 10*3/uL Normal 140-440 [facility] Comment on above: Performed By: #### H TYLER VARMA, PHOS3, BMP3, MG3 ####[facility] [facility], [place] #### OSM ####[facility] [place] [address] RBC (Bld) [#/Vol] 3.68 10*6/uL Low 3.80-5.20 [facility] Comment on above: Performed By: #### H TYLER VARMA, PHOS3, BMP3, MG3 ####[place] [id number] [place], [place] #### OSM ####[place] [address] [place] [address] WBC (Bld) [#/Vol] 5.0 10*3/uL Normal 3.6-10.7 [facility] Comment on above: Performed By: #### H TYLER VARMA, PHOS3, BMP3, MG3 ####[place] [id number] [place], [place] #### OSM ####[facility] [place] [address] Magnesiumon 07-03-2021 Magnesium [Mass/Vol] 1.6 mg/dL Normal 1.6-2.3 [facility] Comment on above: Performed By: #### H TYLER VARMA, PHOS3, BMP3, MG3 ####[place] [address] [facility], [place] #### OSM ####[facility] [place] [address] MagnesiumOrdered By: Michelle lauren on 07-03-2021 Magnesium [Mass/Vol] 1.6 mg/dL 1.6 - 2 .3 mg/dL [facility] Work Phone: Manual Diffon 07-03-2021 Abs Baso Cnt 0.0 10*3/uL Normal 0.0-0.2 [facility] Comment on above: Performed By: #### H EMDF, MDIFF, PHOS3, BMP3, MG3 ####[employer] [address] [place], [place] #### OSM ####[facility] [address] [place] [address] Abs Eosin Cnt 0.2 10*3/uL Normal 0.0-0.5 [facility] Comment on above: Performed By: #### H EMDF, MDIFF, PHOS3, BMP3, MG3 ####[employer] [place], [place] #### OSM ####[place] [address] [facility] [place] [address] Abs Lymph Cnt 1.2 10*3/uL Normal 1.1-4.5 [facility] Comment on above: Performed By: #### H EMDF, MDIFF, PHOS3, BMP3, MG3 ####[employer] [place] [address] #### OSM ####[place] [address] [place] [address] Abs Monocyte Cnt 0.6 10*3/uL Normal 0.2-1.1 [facility] Comment on above: Performed By: #### H EMDF, MDIFF, PHOS3, BMP3, MG3 ####[place] [address] [place], [place] #### OSM ####[place] [address] [place] [address] Abs Neutrophile Cnt 3.1 10*3/uL Normal 2.2-8.2 [facility] Comment on above: Performed By: #### H EMDF, MDIFF, PHOS3, BMP3, MG3 ####[employer] [address] [place], [place] #### OSM ####[facility] [address] [place] [address] Bands 7 % High 0-3 [facility] Comment on above: Performed By: #### H EMDF, MDIFF, PHOS3, BMP3, MG3 ####[facility] [address] [facility] [place] [address]#### OSM ####[facility] [address] [place] [address] Basophils 0 % Normal 0-2 [facility] Comment on above: Performed By: #### H EMDF, MDIFF, PHOS3, BMP3, MG3 ####[facility] [address] [place] [address]#### OSM ####[facility] [address] [place] [address] Cells counted 100 Normal [facility] Comment on above: Performed By: #### H EMDF, MDIFF, PHOS3, BMP3, MG3 ####[facility] [address], [place] #### OSM ####[facility] [place] [address] Eosinophils 4 % Normal 1-6 [facility] Comment on above: Performed By: #### H EMDF, MDIFF, PHOS3, BMP3, MG3 ####[facility] [address] [facility] [place] #### OSM ####[facility] [address] [place] [address] Lymphocytes 23 % Normal 20-40 [facility] Comment on above: Performed By: #### H EMDF, MDIFF, PHOS3, BMP3, MG3 ####[facility] [address] [place] [address]#### OSM ####[facility] [address] [place] [address] Monocytes 11 % High 2-10 [facility] Comment on above: Performed By: #### H EMDF, MDIFF, PHOS3, BMP3, MG3 ####[facility] [address] [place] [address]#### OSM ####[facility] [address] [place] [address] RBC Morphology See Prev Normal [facility] Comment on above: Performed By: #### H TYLER VARMA, PHOS3, BMP3, MG3 ####[facility] [address] [place] [address]#### OSM ####[facility] [address] [place] [address] Seg Neutrophils 55 % Normal 40-80 [facility] Comment on above: Performed By: #### H TYLER VARMA, PHOS3, BMP3, MG3 ####[facility] [address] [place] [address]#### OSM ####[facility] [address] [place] [address] Manual DifferentialOrdered B y: Michelle Laquita on 07-03-2021 Absolute Baso # 0.0 10*3/uL 0.0 - 0.2 10*3/uL [facility] Work Phone: [phone] Absolute Eos # 0.2 10*3/uL 0.0 - 0.5 10*3/uL [facility] Work Phone: ) 22 Absolute Lymph # 1.2 10*3/uL 1.1 - 4.5 10*3/uL [facility] Work Phone: ) 22 Absolute [place] # 0.6 10*3/uL 0.2 - 1.1 10*3/uL [facility] Work Phone: ) 22 Absolute Neut # 3.1 10*3/uL 2.2 - 8.2 10*3/uL [facility] Work Phone: ) 22 Bands 7 % High 0 - 3 % [facility] Work Phone: ) 22 Basophils/100 WBC (Bld) 0 % 0 - 2 % [facility] Work Phone: ) 22 Eosinophils/100 WBC (Bld) 4 % 1 - 6 % [facility] Work Phone: ) 22 Interpretation and review of laboratory results Abnormal [facility] Work Phone: ) 22 Lymphocytes/100 WBC (Bld) 23 % 20 - 40 % [facility] Work Phone: [phone] Monocytes/100 WBC (Bld) 11 % High 2 - 10 % [facility] Work Phone: [phone] RBC (Bld) [#/Vol] See Prev [facility] Work Phone: [phone] Seg Neutrophils 55 % 40 - 80 % [facility] Work Phone: [phone] TOTAL CELLS COUNTED 100 [facility] Work Phone: [phone] [facility] Work Phone: [phone] [facility] Work Phone: [phone] Panel InformationOrdered By: Michelle Petty on 07-03-2021 Interpretation and review of laboratory results Abnormal [facility] Work Phone: [phone] [facility] Work Phone: [phone] [facility] Work Phone: [phone] OsmolalityOrdered By: Lindsey Joyce on 07-03-2021 Interpretation and review of laboratory results Abnormal [facility] Work Phone: [phone] Serum Osmolality 308 mosm/kg High 280 - 300 mosm/kg [facility] Work Phone: [phone] [facility] Work Phone: [phone] [facility] Work Phone: [phone] Osmolality,Serumon 1 Osmolality,Serum 308 mosm/kg High 280-300 [facility] [employer] Comment on above: Performed By: #### H AVANI, IFF, PHOS3, BMP3, MG3 ####[place] [address] [place] [address]#### OSM ####[facility] [address] [place] [address] POCT GlucoseOrdered By: Jessica Soni on 07-03-2021 Glucose [Mass/Vol] 121 mg/dL High 70 - 100 mg/dL [facility] Work Phone: [phone] Interpretation and review of laboratory results Abnormal [facility] Work Phone: [phone] [facility] Work Phone: [phone] [facility] Work Phone: [phone] Glucose [Mass/Vol] 121 mg/dL High 70 - 100 mg/dL [facility] Work Phone: [phone] Interpretation and review of laboratory results Abnormal [facility] Work Phone: [phone] [facility] Work Phone: [phone] [facility] Work Phone: [phone] Glucose [Mass/Vol] 103 mg/dL High 70 - 100 mg/dL [facility] Work Phone: [phone] Interpretation and review of laboratory results Abnormal [facility] Work Phone: [phone] [facility] Work Phone: [phone] [facility] Work Phone: [phone] Phosphoruson 07-03-2021 Phosphate [Mass/Vol] 6.3 mg/dL High 2.5-4.5 [facility] Comment on above: Performed By: #### H EMDF, MDIFF, PHOS3, BMP3, MG3 ####[facility] [employer] [address] [place] [address]#### OSM ####[facility] [employer] [address] [place] [address] PhosphorusOrdered By: Michelle pearson on 07-03-2021 Phosphate [Mass/Vol] 6.3 mg/dL High 2.5 - 4 .5 mg/dL [facility] Work Phone: Basic Metabolic Panelon Calcium [Mass/Vol] 8.8 mg/dL Normal 8.4-10.4 [facility] Comment on above: Performed By: #### O SM ####[facility] [employer] [address] [facility] [place] [address]#### LFT3, HEMDF, MDIFF, BMP3, MG3, PHOS3 ####[facility] [address] [place] [address] Anion gap [Moles/Vol] 6 mmol/L Normal 3-13 [facility] Comment on above: Performed By: #### O SM ####[facility] [employer] [address] [facility] [place] [address]#### LFT3, HEMDF, MDIFF, BMP3, MG3, PHOS3 ####[facility] [place] [address] CO2 [Moles/Vol] 26 mmol/L Normal 22-30 [facility] Comment on above: Performed By: #### O SM ####[facility] [employer] [address] [place] [address]#### LFT3, HEMDF, MDIFF, BMP3, MG3, PHOS3 ####[place] [id number] [place] [address] Creatinine [Mass/Vol] 2.26 mg/dL High 0.52-1.25 [facility] Comment on above: Performed By: #### O SM ####[facility] [employer] [place] [address] [place] [address]#### LFT3, HEMDF, MDIFF, BMP3, MG3, PHOS3 ####[facility] [employer] [address] [place] [address] GFR/1.73 sq M.predicted among blacks MDRD (S/P/Bld) [Vol rate/Area] 27.7 mL/min/{1.73_m2} Abnormal >60 [facility] Comment on above: Performed By: #### O SM ####[facility] [employer] [address] [place] [address]#### LFT3, HEMDF, MDIFF, BMP3, MG3, PHOS3 ####[facility] [employer] [address] [place] [address] GFR/1.73 sq M.predicted among non-blacks MDRD (S/P/Bld) [Vol rate/Area] 23.9 mL/min/{1.73_m2} Abnormal >60 [facility] Comment on above: Result Comment: KDIG O guidelines provide the following GFR categories:Stage GFR(ml/min/1.73 m2) TermsG1 >=90 Normal or highG2 60-89 Mildly decreased*G3a 45-59 Mildly to moderately qctarczpqD6o 30-44 Moderately to severely decreasedG4 15-29 Severely decreasedG5 <15 Kidney failure*Relative to young adult level.In the absence of evidence of kidney damage, neither GFRcategory G1 nor G2 fulfill the criteria for CKD.The CKD-EPI equation is validated in individuals 18 yearsof age and older. Currently the best equation forestimating glomerular filtration rate (GFR) from serumcreatinine in children is the Bedside Arechiga equation.It is less accurate in patients with extremes of musclemass, restriction of dietary protein, ingestion of creatine,extra-renal metabolism of creatinine, or treatment withmedications that affect renal tubular creatinine secretion. Performed By: #### O SM ####[address] [place] [address]#### LFT3, HEMDF, MDIFF, BMP3, MG3, PHOS3 ####[place] [id number] [place] [address] Glucose [Mass/Vol] 95 mg/dL Normal 70-100 [facility] Comment on above: Performed By: #### O SM ####[address] [place] [address]#### LFT3, HEMDF, MDIFF, BMP3, MG3, PHOS3 ####[address] [place] [address] Urea nitrogen [Mass/Vol] 60 mg/dL High 7-20 [facility] Comment on above: Performed By: #### O SM ####[address] [place] [address]#### LFT3, HEMDF, MDIFF, BMP3, MG3, PHOS3 ####[address] [place] [address] Potassium [Moles/Vol] 5.1 mmol/L Normal 3.5-5.1 [facility] Comment on above: Performed By: #### O SM ####[address] [place] [address]#### LFT3, HEMDF, MDIFF, BMP3, MG3, PHOS3 ####[place] [address] [facility] [place] [address] Sodium [Moles/Vol] 139 mmol/L Normal 135-145 [facility] Comment on above: Performed By: #### O SM ####[address] [place] [address]#### LFT3, HEMDF, MDIFF, BMP3, MG3, PHOS3 ####[employer] [address] [place] [address] Chloride [Moles/Vol] 107 mmol/L Normal 98-107 [facility] [employer] System Comment on above: Performed By: #### O SM ####[employer] [address] [place] [address]#### LFT3, HEMDF, MDIFF, BMP3, MG3, PHOS3 ####[employer] [address] [place] [address] Basic Metabolic PanelOrdered By: Silver Nick on 07-02-2021 Anion gap [Moles/Vol] 6 mmol/L 3 - 13 mmol/L [facility] Work Phone: Calcium [Mass/Vol] 8.8 mg/dL 8.4 - 10. 4 mg/dL [facility] Work Phone: [phone] Chloride [Moles/Vol] 107 mmol/L 98 - 10 7 mmol/L [facility] Work Phone: [phone] CO2 [Moles/Vol] 26 mmol/L 22 - 30 mmol/L [facility] Work Phone: Creatinine [Mass/Vol] 2.26 mg/dL High 0.52 - 1.25 mg/dL [facility] Work Phone: EGFR IF NonAfrican [place]orese 23.9 mL/min Abnormal >60 [facility] Work Phone: GFR/1.73 sq M.predicted among blacks MDRD (S/P/Bld) [Vol rate/Area] 27.7 mL/min/{1.73_m2} Abnormal >60 [facility] Work Phone: Glucose [Mass/Vol] 95 mg/dL 70 - 100 mg/dL [facility] Work Phone: Potassium [Moles/Vol] 5.1 mmol/L 3.5 - 5.1 mmol/L [facility] Work Phone: Sodium [Moles/Vol] 139 mmol/L 135 - 145 mmol/L [facility] Work Phone: Urea nitrogen (BldV) [Mass/Vol] 60 mg/dL High 7 - 20 mg/dL [facility] Work Phone: [phone] CBC auto differentialOrdered By: Michelle Petty on 07-02-2021 Hematocrit (Bld) [Volume fraction] 27.4 % Low 35.0 - 47.0 % [facility] Work Phone: [phone] Hemoglobin.gastrointes tinal spec 1 Ql (Stl) 8.7 g/dL Low 11.7 - 16.0 g/dL [facility] Work Phone: [phone] Interpretation and review of laboratory results Abnormal [facility] Work Phone: [phone] MCH (RBC) [Entitic mass] 23.8 pg Low 26.0 - 34.0 pg [facility] Work Phone: [phone] MCHC (RBC) [Mass/Vol] 31.7 % Low 32.0 - 36.0 % [facility] Work Phone: [phone] MCV (RBC) [Entitic vol] 75.1 fL Low 79.0 - 98.0 fL [facility] Work Phone: [phone] Platelet distribution width (Bld) [Ratio] 24.8 % High 11.5 - 14.5 % [facility] Work Phone: [phone] Platelet mean volume (Bld) [Entitic vol] 7.3 fL Low 7.4 - 10.4 fL [facility] Work Phone: [phone] Platelets (Bld) [#/Vol] 224 10*3/uL 140 - 440 10*3/uL [facility] Work Phone: [phone] RBC (Bld) [#/Vol] 3.64 10*6/uL Low 3.80 - 5.2 0 10*6/uL [facility] Work Phone: [phone] WBC (Bld) [#/Vol] 4.9 10*3/uL 3.6 - 10.7 10*3/uL [facility] Work Phone: [phone] [facility] Work Phone: [phone] [facility] Work Phone: [phone] Glucose,Bedsideon 07-02-2021 Glucose [Mass/Vol] 164 mg/dL High 70-[address] [facility] Comment on above: Result Comment: Test performed by glucose meter. Results may be 10%-15% lowerthan serum/plasma values. (CLIA ID [id number]) Performed By: #### B GLU ####[employer] [place], [place] Glucose [Mass/Vol] 128 mg/dL High 70-100 [facility] Comment on above: Result Comment: Test performed by glucose meter. Results may be 10%-15% lowerthan serum/plasma values. (CLIA ID [id number]) Performed By: #### B GLU ####[employer] [place], [place] Glucose [Mass/Vol] 139 mg/dL High 70-100 [facility] Comment on above: Result Comment: Test performed by glucose meter. Results may be 10%-15% lowerthan serum/plasma values. (CLIA ID [id number]) Performed By: #### B GLU ####[employer] [place], [place] Glucose [Mass/Vol] 108 mg/dL High 70-100 [facility] Comment on above: Result Comment: Test performed by glucose meter. Results may be 10%-15% lowerthan serum/plasma values. (CLIA ID [id number]) Performed By: #### B GLU ####[employer] [place], [place] Hemogram w/ Autodiffon 07-02 Erythrocyte distribution width (RBC) [Ratio] 24.8 % High 11.5-14.5 [facility] Comment on above: Performed By: #### O SM ####[employer] [place] [address]#### LFT3, HEMDF, MDIFF, BMP3, MG3, PHOS3 ####[employer] [place], [place] Hematocrit (Bld) [Volume fraction] 27.4 % Low 35.0-47.0 [facility] Comment on above: Performed By: #### O SM ####[address] [place], [place] #### LFT3, HEMDF, MDIFF, BMP3, MG3, PHOS3 ####[place] [id number] [place], [place] Hemoglobin (Bld) [Mass/Vol] 8.7 g/dL Low 11.7-16.0 [facility] Comment on above: Performed By: #### O SM ####[address] [place], [place] #### LFT3, HEMDF, MDIFF, BMP3, MG3, PHOS3 ####[place] [place], [place] MCH (RBC) [Entitic mass] 23.8 pg Low 26.0-34.0 [facility] Comment on above: Performed By: #### O SM ####[address] [place], [place] #### LFT3, HEMDF, MDIFF, BMP3, MG3, PHOS3 ####[place] [place], [place] MCHC 31.7 % Low 32.0-36.0 [facility] Comment on above: Performed By: #### O SM ####[address] [place], [place] #### LFT3, HEMDF, MDIFF, BMP3, MG3, PHOS3 ####[id number] [place], [place] MCV (RBC) [Entitic vol] 75.1 fL Low 79.0-98.0 [facility] Comment on above: Performed By: #### O SM ####[address] [place], [place] #### LFT3, HEMDF, MDIFF, BMP3, MG3, PHOS3 ####[id number] [place], [place] Platelet mean volume (Bld) [Entitic vol] 7.3 fL Low 7.4-10.4 [facility] Comment on above: Performed By: #### O SM ####[address] [place] [address]#### LFT3, HEMDF, MDIFF, BMP3, MG3, PHOS3 ####[place] [address] [place] Platelets (Bld) [#/Vol] 224 10*3/uL Normal 140-440 [facility] Comment on above: Performed By: #### O SM ####[address] [place] [address]#### LFT3, HEMDF, MDIFF, BMP3, MG3, PHOS3 ####[place] [address] [place] RBC (Bld) [#/Vol] 3.64 10*6/uL Low 3.80-5.20 [facility] Comment on above: Performed By: #### O SM ####[address] [place] #### LFT3, HEMDF, MDIFF, BMP3, MG3, PHOS3 ####[place] [place], [place] WBC (Bld) [#/Vol] 4.9 10*3/uL Normal 3.6-10.7 [facility] Comment on above: Performed By: #### O SM ####[address] [place] #### LFT3, HEMDF, MDIFF, BMP3, MG3, PHOS3 ####[place] [id number] [facility] [place] Hepatic Functionon 1 ALP [Catalytic activity/Vol] 70 U/L Normal 38-126 [facility] Comment on above: Performed By: #### O SM ####[address] [place] [address]#### LFT3, HEMDF, MDIFF, BMP3, MG3, PHOS3 ####[place] [id number] [facility] [place] ALT [Catalytic activity/Vol] 23 U/L Normal 0-34 [facility] Comment on above: Result Comment: The ALT test is performed by an updated assay method.Please note that the reference intervals have beenchanged and are now sex specific. Performed By: #### O SM ####[address] [place] [address]#### LFT3, HEMDF, MDIFF, BMP3, MG3, PHOS3 ####[place] [id number] [facility] [place] AST [Catalytic activity/Vol] 25 U/L Normal 15-46 [facility] Comment on above: Performed By: #### O SM ####[address] [facility] [place] [address]#### LFT3, HEMDF, MDIFF, BMP3, MG3, PHOS3 ####[address] Bilirubin [Mass/Vol] 0.5 mg/dL Normal 0.2-1.3 [facility] Comment on above: Performed By: #### O SM ####[address] [facility] [place] [address]#### LFT3, HEMDF, MDIFF, BMP3, MG3, PHOS3 ####[place] [place], [place] Bilirubin.indirect [Mass/Vol] 0.0 mg/dL Normal 0.0-0.3 [facility] Comment on above: Performed By: #### O SM ####[address] [place] [address]#### LFT3, HEMDF, MDIFF, BMP3, MG3, PHOS3 ####[address], [place] Protein [Mass/Vol] 6.1 g/dL Low 6.3-8.2 [facility] Comment on above: Performed By: #### O SM ####[address] [facility] [place] [address]#### LFT3, HEMDF, MDIFF, BMP3, MG3, PHOS3 ####[address] [place] [address] Albumin [Mass/Vol] 2.8 g/dL Low 3.5-5.0 [facility] Comment on above: Performed By: #### O SM ####[facility] [employer] [address] [place] [address]#### LFT3, HEMDF, MDIFF, BMP3, MG3, PHOS3 ####[facility] [employer] [address] [place], [place] Hepatic Function PanelOrdere d By: Tello Sterling on 07-02-2021 Albumin [Mass/Vol] 2.8 g/dL Low 3.5 - 5.0 g/dL [facility] Work Phone: ALP (Bld) [Catalytic activity/Vol] 70 U/L 38 - 126 U/L [facility] Work [facility]: ALT [Catalytic activity/Vol] 23 U/L 0 - 34 U/L [facility] Work Phone: AST [Catalytic activity/Vol] 25 U/L 15 - 46 U/L [facility] Work Phone: Bilirubin [Mass/Vol] 0.5 mg/dL 0.2 - 1 .3 mg/dL [facility] Work Phone: Bilirubin.indirect [Mass/Vol] 0.0 mg/dL 0.0 - 0.3 mg/dL [facility] Work Phone: Free PSA/Total PSA [Mass fraction] 6.1 g/dL Low 6.3 - 8.2 g/dL [facility] Work Phone: Magnesiumon 07-02-2021 Magnesium [Mass/Vol] 1.7 mg/dL Normal 1.6-2.3 [facility] [employer] System Comment on above: Performed By: #### O SM ####[facility] [employer] [address] [place] [address]#### LFT3, HEMDF, MDIFF, BMP3, MG3, PHOS3 ####[facility] [employer] [address] [place] [address] MagnesiumOrdered By: Michelle lauren on 07-02-2021 Magnesium [Mass/Vol] 1.7 mg/dL 1.6 - 2 .3 mg/dL [facility] Work Phone: Manual Diffon 07-02-2021 Abs Baso Cnt 0.0 10*3/uL Normal 0.0-0.2 [facility] Comment on above: Performed By: #### O SM ####[employer] [place] [address] [address] [place] [id number]#### LFT3, HEMDF, MDIFF, BMP3, MG3, PHOS3 ####[employer] [place], [place] Abs Eosin Cnt 0.2 10*3/uL Normal 0.0-0.5 [facility] Comment on above: Performed By: #### O SM ####[employer] [place] [address] Str[address] [place] [id number]#### LFT3, HEMDF, MDIFF, BMP3, MG3, PHOS3 ####[employer] [place], [place] Abs Lymph Cnt 0.8 10*3/uL Low 1.1-4.5 [facility] Comment on above: Performed By: #### O SM ####[employer] [place] [address]. [place] [address]#### LFT3, HEMDF, MDIFF, BMP3, MG3, PHOS3 ####[employer] [place] [address] Abs Monocyte Cnt 0.3 10*3/uL Normal 0.2-1.1 [facility] Comment on above: Performed By: #### O SM ####[employer] [place] [address] [place] [address]#### LFT3, HEMDF, MDIFF, BMP3, MG3, PHOS3 ####[employer] [place], [place] Abs Neutrophile Cnt 3.5 10*3/uL Normal 2.2-8.2 [facility] Comment on above: Performed By: #### O SM ####[employer] [place] [address]. [place] [address]#### LFT3, HEMDF, MDIFF, BMP3, MG3, PHOS3 ####[facility] [address] [facility] [place] [place] Bands 6 % High 0-3 [facility] Comment on above: Performed By: #### O SM ####[address] [address]#### LFT3, HEMDF, MDIFF, BMP3, MG3, PHOS3 ####[facility] [address] [facility] Basophils 1 % Normal 0-2 [facility] Comment on above: Performed By: #### O SM ####[address] [place] [address]#### LFT3, HEMDF, MDIFF, BMP3, MG3, PHOS3 ####[place] [id number] [facility], [place] Cells counted 100 Normal [facility] Comment on above: Performed By: #### O SM ####[address] [facility] [place] [address]#### LFT3, HEMDF, MDIFF, BMP3, MG3, PHOS3 ####[facility] [facility] Eosinophils 4 % Normal 1-6 [facility] Comment on above: Performed By: #### O SM ####[address] [facility] [place] [address]#### LFT3, HEMDF, MDIFF, BMP3, MG3, PHOS3 ####[facility] [address] [facility] Lymphocytes 17 % Low 20-40 [facility] Comment on above: Performed By: #### O SM ####[place] [address] [place] [address]#### LFT3, HEMDF, MDIFF, BMP3, MG3, PHOS3 ####[facility] [address] [facility] [place] Monocytes 7 % Normal 2-10 [facility] Comment on above: Performed By: #### O SM ####[facility] [place] [address]#### LFT3, HEMDF, MDIFF, BMP3, MG3, PHOS3 ####[facility] [place] [address] RBC Morphology See Prev Normal [facility] Comment on above: Performed By: #### O SM ####[facility] [place] [address]#### LFT3, HEMDF, MDIFF, BMP3, MG3, PHOS3 ####[facility] [place] [address] Seg Neutrophils 65 % Normal 40-80 [facility] Comment on above: Performed By: #### O SM ####[place] [address] [place] [address]#### LFT3, HEMDF, MDIFF, BMP3, MG3, PHOS3 ####[facility] [place] [address] Manual DifferentialOrdered B y: Michelle Laquita on 07-02-2021 Absolute Baso # 0.0 10*3/uL 0.0 - 0.2 10*3/uL [facility] Work Phone: [phone] Absolute Eos # 0.2 10*3/uL 0.0 - 0.5 10*3/uL [facility] Work Phone: [phone] Absolute Lymph # 0.8 10*3/uL Low 1.1 - 4.5 10*3/uL [facility] Work Phone: 22 Absolute [place] # 0.3 10*3/uL 0.2 - 1.1 10*3/uL [facility] Work Phone: [phone] Absolute Neut # 3.5 10*3/uL 2.2 - 8.2 10*3/uL [facility] Work Phone: [phone] Bands 6 % High 0 - 3 % [facility] Work Phone: [phone] Basophils/100 WBC (Bld) 1 % 0 - 2 % [facility] Work Phone: [phone] Eosinophils/100 WBC (Bld) 4 % 1 - 6 % [facility] Work Phone: [phone] Interpretation and review of laboratory results Abnormal [facility] Work Phone: [phone] Lymphocytes/100 WBC (Bld) 17 % Low 20 - 40 % [facility] Work Phone: [phone] Monocytes/100 WBC (Bld) 7 % 2 - 10 % [facility] Work Phone: [phone] RBC (Bld) [#/Vol] See Prev [facility] Work Phone: [phone] Neutrophils 65 % 40 - 80 % [facility] Work Phone: [phone] TOTAL CELLS COUNTED 100 [facility] Work Phone: [phone] [facility] Work Phone: [phone] [facility] Work Phone: [phone] Panel InformationOrdered By: Michelle Petty on 07-02-2021 Interpretation and review of laboratory results Abnormal [facility] Work Phone: [phone] [facility] Work Phone: [phone] [facility] Work Phone: [phone] OsmolalityOrdered By: Lindsey Joyce on 07-02-2021 Interpretation and review of laboratory results Abnormal [facility] Work Phone: [phone] Serum Osmolality 313 mosm/kg High 280 - 300 mosm/kg [facility] Work Phone: [phone] [facility] Work Phone: [phone] [facility] Work Phone: Osmolality,Serumon 1 Osmolality,Serum 313 mosm/kg High 280-300 [facility] Comment on above: Performed By: #### O SM ####[employer] [address] [place] [address]#### LFT3, HEMDF, MDIFF, BMP3, MG3, PHOS3 ####[employer] [address] [place] [address] POCT GlucoseOrdered By: Jessica Soni on 07-02-2021 Glucose [Mass/Vol] 164 mg/dL High 70 - 100 mg/dL [facility] Work Phone: Interpretation and review of laboratory results Abnormal [facility] Work Phone: [phone] [facility] Work Phone: [phone] [facility] Work Phone: [phone] Glucose [Mass/Vol] 128 mg/dL High 70 - 100 mg/dL [facility] Work Phone: [phone] Interpretation and review of laboratory results Abnormal [facility] Work Phone: [phone] [facility] Work Phone: [phone] [facility] Work Phone: [phone] Glucose [Mass/Vol] 139 mg/dL High 70 - 100 mg/dL [facility] Work Phone: [phone] Interpretation and review of laboratory results Abnormal [facility] Work Phone: [phone] [facility] Work Phone: [phone] [facility] Work Phone: [phone] Glucose [Mass/Vol] 108 mg/dL High 70 - 100 mg/dL [facility] Work Phone: [phone] Interpretation and review of laboratory results Abnormal [facility] Work Phone: [phone] [facility] Work Phone: [phone] [facility] Work Phone: [phone] Phosphoruson 07-02-2021 Phosphate [Mass/Vol] 6.1 mg/dL High 2.5-4.5 [facility] Comment on above: Performed By: #### O SM ####[facility] [employer] [address] [place] [address]#### LFT3, HEMDF, MDIFF, BMP3, MG3, PHOS3 ####[facility] [employer] [address] [place] [address] PhosphorusOrdered By: Michelle pearson on 07-02-2021 Phosphate [Mass/Vol] 6.1 mg/dL High 2.5 - 4 .5 mg/dL [facility] Work Phone: Basic Metabolic Panelon Calcium [Mass/Vol] 8.4 mg/dL Normal 8.4-10.4 [facility] Comment on above: Performed By: #### P HOS3, MDIFF, MG3, HEMDF, BMP3 ####[facility] [facility] [place] [address]#### OSM ####[facility] [place] [address] Anion gap [Moles/Vol] 4 mmol/L Normal 3-13 [facility] Comment on above: Performed By: #### P HOS3, MDIFF, MG3, HEMDF, BMP3 ####[place] [id number] [facility] [place] [address]#### OSM ####[facility] [place] [address] CO2 [Moles/Vol] 24 mmol/L Normal 22-30 [facility] Comment on above: Performed By: #### P HOS3, MDIFF, MG3, HEMDF, BMP3 ####[address], [place] #### OSM ####[address] [place] [address] Creatinine [Mass/Vol] 2.36 mg/dL High 0.52-1.25 [facility] Comment on above: Performed By: #### P HOS3, MDIFF, MG3, HEMDF, BMP3 ####[place] [id number] [facility], [place] #### OSM ####[place] [address] [place] [address] GFR/1.73 sq M.predicted among blacks MDRD (S/P/Bld) [Vol rate/Area] 26.3 mL/min/{1.73_m2} Abnormal >60 [facility] Comment on above: Performed By: #### P HOS3, MDIFF, MG3, HEMDF, BMP3 ####[place] [id number] [facility] [place] [address]#### OSM ####[place] [address] [place] [address] GFR/1.73 sq M.predicted among non-blacks MDRD (S/P/Bld) [Vol rate/Area] 22.7 mL/min/{1.73_m2} Abnormal >60 [facility] Comment on above: Result Comment: KDIG O guidelines provide the following GFR categories:Stage GFR(ml/min/1.73 m2) TermsG1 >=90 Normal or highG2 60-89 Mildly decreased*G3a 45-59 Mildly to moderately xkvoglsrrS4e 30-44 Moderately to severely decreasedG4 15-29 Severely decreasedG5 <15 Kidney failure*Relative to young adult level.In the absence of evidence of kidney damage, neither GFRcategory G1 nor G2 fulfill the criteria for CKD.The CKD-EPI equation is validated in individuals 18 yearsof age and older. Currently the best equation forestimating glomerular filtration rate (GFR) from serumcreatinine in children is the Bedside Arechiga equation.It is less accurate in patients with extremes of musclemass, restriction of dietary protein, ingestion of creatine,extra-renal metabolism of creatinine, or treatment withmedications that affect renal tubular creatinine secretion. Performed By: #### P HOS3, MDIFF, MG3, HEMDF, BMP3 ####[facility] [employer] [address] [place], [place] #### OSM ####[facility] [place] [address] Glucose [Mass/Vol] 109 mg/dL High 70-100 [facility] Comment on above: Performed By: #### P HAM3, MDIFF, MG3, HEMDF, BMP3 ####[facility] [employer] [address] [place] [address]#### OSM ####[facility] [place] [address] Urea nitrogen [Mass/Vol] 61 mg/dL High 7-20 [facility] Comment on above: Performed By: #### P HOS3, MDIFF, MG3, HEMDF, BMP3 ####[facility] [employer] [address] [place] [address]#### OSM ####[facility] [place] [address] Basic Metabolic PanelOrdered By: Silver Nick on 07-01-2021 Chloride [Moles/Vol] 106 mmol/L Normal 98-107 [facility] Work Phone: Comment on above: Performed By: #### P HOS3, MDIFF, MG3, HEMDF, BMP3 ####[facility] [address] [place] [address]#### OSM ####[facility] [address] [place] [address] Potassium [Moles/Vol] 5.0 mmol/L Normal 3.5-5.1 [facility] Work Phone: Comment on above: Performed By: #### P HOS3, MDIFF, MG3, HEMDF, BMP3 ####[facility] [address] [place] [address]#### OSM ####[employer] [address] [place] [address] Sodium [Moles/Vol] 135 mmol/L Normal 135-145 [facility] Work Phone: Comment on above: Performed By: #### P HOS3, MDIFF, MG3, HEMDF, BMP3 ####[facility] [address] [place] [address]#### OSM ####[facility] [address] [facility], [place] [address] Anion gap [Moles/Vol] 4 mmol/L 3 - 13 mmol/L [facility] Work Phone: Calcium [Mass/Vol] 8.4 mg/dL 8.4 - 10. 4 mg/dL [facility] Work Phone: CO2 [Moles/Vol] 24 mmol/L 22 - 30 mmol/L [facility] Work Phone: Creatinine [Mass/Vol] 2.36 mg/dL High 0.52 - 1.25 mg/dL [facility] Work Phone: EGFR IF NonAfrican [place] 22.7 mL/min Abnormal >60 [facility] Work Phone: 22 GFR/1.73 sq M.predicted among blacks MDRD (S/P/Bld) [Vol rate/Area] 26.3 mL/min/{1.73_m2} Abnormal >60 [facility] Work Phone: [phone] Glucose [Mass/Vol] 109 mg/dL High 70 - 100 mg/dL [facility] Work Phone: Urea nitrogen (BldV) [Mass/Vol] 61 mg/dL High 7 - 20 mg/dL [facility] Work Phone: CBC auto differentialOrdered By: Michelle Petty on 07-01-2021 Hematocrit (Bld) [Volume fraction] 27.4 % Low 35.0 - 47.0 % [facility] Work Phone: Hemoglobin.gastrointes tinal spec 1 Ql (Stl) 8.8 g/dL Low 11.7 - 16.0 g/dL [facility] Work Phone: Interpretation and review of laboratory results Abnormal [facility] Work Phone: MCH (RBC) [Entitic mass] 24.0 pg Low 26.0 - 34.0 pg [facility] Work Phone: MCHC (RBC) [Mass/Vol] 32.2 % 32.0 - 36.0 % [facility] Work Phone: MCV (RBC) [Entitic vol] 74.4 fL Low 79.0 - 98.0 fL [facility] Work Phone: Platelet distribution width (Bld) [Ratio] 25.1 % High 11.5 - 14.5 % [facility] Work Phone: Platelet mean volume (Bld) [Entitic vol] 7.1 fL Low 7.4 - 10.4 fL [facility] Work Phone: Platelets (Bld) [#/Vol] 216 10*3/uL 140 - 440 10*3/uL [facility] Work Phone: RBC (Bld) [#/Vol] 3.69 10*6/uL Low 3.80 - 5.2 0 10*6/uL [facility] Work Phone: WBC (Bld) [#/Vol] 5.5 10*3/uL 3.6 - 10.7 10*3/uL [facility] Work Phone: [facility] Work Phone: [facility] Work Phone: Glucose,Bedsideon 07-01-2021 Glucose [Mass/Vol] 187 mg/dL High 70-100 [facility] Comment on above: Result Comment: Test performed by glucose meter. Results may be 10%-15% lowerthan serum/plasma values. (CLIA ID [id number]) Performed By: #### B GLU ####[address] [place], [place] Glucose [Mass/Vol] 165 mg/dL High 70-100 [facility] Comment on above: Result Comment: Test performed by glucose meter. Results may be 10%-15% lowerthan serum/plasma values. (CLIA ID [id number]) Performed By: #### B GLU ####[address] [place], [place] Glucose [Mass/Vol] 148 mg/dL High 70-100 [facility] Comment on above: Result Comment: Test performed by glucose meter. Results may be 10%-15% lowerthan serum/plasma values. (CLIA ID [id number]) Performed By: #### B GLU ####[address] [place], [place] Hemogram w/ Autodiffon 07-01 Erythrocyte distribution width (RBC) [Ratio] 25.1 % High 11.5-14.5 [facility] Comment on above: Performed By: #### P HAM3TYLER, MG3, HEMDF, BMP3 ####[address] [place], [place] #### OSM ####[facility] [place] [address] Hematocrit (Bld) [Volume fraction] 27.4 % Low 35.0-47.0 [facility] Comment on above: Performed By: #### P HAM3, MDIFF, MG3, HEMDF, BMP3 ####[address] [place], [place] #### OSM ####[employer] [place] [address] Hemoglobin (Bld) [Mass/Vol] 8.8 g/dL Low 11.7-16.0 [facility] Comment on above: Performed By: #### P HOS3, MDIFF, MG3, HEMDF, BMP3 ####[facility] [place], [place] #### OSM ####[facility] [facility] [place] [address] MCH (RBC) [Entitic mass] 24.0 pg Low 26.0-34.0 [facility] Comment on above: Performed By: #### P HOS3, MDIFF, MG3, HEMDF, BMP3 ####[place] [id number] [place], [place] #### OSM ####[facility] [place] [address] MCHC 32.2 % Normal 32.0-36.0 [facility] Comment on above: Performed By: #### P HOS3, MDIFF, MG3, HEMDF, BMP3 ####[address] #### OSM ####[facility] [place] [address] MCV (RBC) [Entitic vol] 74.4 fL Low 79.0-98.0 [facility] Comment on above: Performed By: #### P HOS3, MDIFF, MG3, HEMDF, BMP3 ####[id number] [place], [place] #### OSM ####[facility] [place] [address] Platelet mean volume (Bld) [Entitic vol] 7.1 fL Low 7.4-10.4 [facility] Comment on above: Performed By: #### P HOS3, MDIFF, MG3, HEMDF, BMP3 ####[id number] [place], [place] #### OSM ####[facility] [place] [address] Platelets (Bld) [#/Vol] 216 10*3/uL Normal 140-440 [facility] Comment on above: Performed By: #### P HOS3, MDIFF, MG3, HEMDF, BMP3 ####[facility] [place], [place] #### OSM ####[facility] [place] [address] RBC (Bld) [#/Vol] 3.69 10*6/uL Low 3.80-5.20 [facility] Comment on above: Performed By: #### P HOS3, MDIFF, MG3, HEMDF, BMP3 ####[facility] [address] [place], [place] #### OSM ####[facility] [place] [address] WBC (Bld) [#/Vol] 5.5 10*3/uL Normal 3.6-10.7 [facility] Comment on above: Performed By: #### P HOS3, MDIFF, MG3, HEMDF, BMP3 ####[facility] [address] [place], [place] #### OSM ####[facility] [place] [address] Magnesiumon 07-01-2021 Magnesium [Mass/Vol] 1.8 mg/dL Normal 1.6-2.3 [facility] Comment on above: Performed By: #### P HOS3, MDIFF, MG3, HEMDF, BMP3 ####[facility] [address] [place], [place] #### OSM ####[facility] [place] [address] MagnesiumOrdered By: Michelle lauren on 07-01-2021 Magnesium [Mass/Vol] 1.8 mg/dL 1.6 - 2 .3 mg/dL [facility] Work Phone: Manual Diffon 07-01-2021 Abs Baso Cnt 0.0 10*3/uL Normal 0.0-0.2 [facility] Comment on above: Performed By: #### P HOS3, MDIFF, MG3, HEMDF, BMP3 ####[facility] . [place], [place] #### OSM ####[facility] [place] [address] Abs Eosin Cnt 0.2 10*3/uL Normal 0.0-0.5 [facility] Comment on above: Performed By: #### P HOS3, MDIFF, MG3, HEMDF, BMP3 ####[id number] [place], [place] #### OSM ####[facility] [place] [address] Abs Lymph Cnt 0.8 10*3/uL Low 1.1-4.5 [facility] Comment on above: Performed By: #### P HOS3, MDIFF, MG3, HEMDF, BMP3 ####[address] #### OSM ####[place] [address] [place] [address] Abs Monocyte Cnt 0.1 10*3/uL Low 0.2-1.1 [facility] Comment on above: Performed By: #### P HOS3, MDIFF, MG3, HEMDF, BMP3 ####[id number] [place], [place] #### OSM ####[facility] [place] [address] Abs Neutrophile Cnt 4.2 10*3/uL Normal 2.2-8.2 [facility] Comment on above: Performed By: #### P HOS3, MDIFF, MG3, HEMDF, BMP3 ####[id number] [place], [place] #### OSM ####[facility] [place] [address] Bands 0 % Normal 0-3 [facility] Comment on above: Performed By: #### P HOS3, MDIFF, MG3, HEMDF, BMP3 ####[facility] [address] [facility] [place] [address]#### OSM ####[facility] [place] [address] Basophils 0 % Normal 0-2 [facility] Comment on above: Performed By: #### P HOS3, MDIFF, MG3, HEMDF, BMP3 ####[facility] [address] [facility] [place] #### OSM ####[facility] [place] [address] Cells counted 100 Normal [facility] Comment on above: Performed By: #### P HOS3, MDIFF, MG3, HEMDF, BMP3 ####[facility] [facility] [place] #### OSM ####[facility] [place] [address] Eosinophils 3 % Normal 1-6 [facility] Comment on above: Performed By: #### P HOS3, MDIFF, MG3, HEMDF, BMP3 ####[facility] [facility] [place] #### OSM ####[facility] [place] [address] Lymphocytes 14 % Low 20-40 [facility] Comment on above: Performed By: #### P HOS3, MDIFF, MG3, HEMDF, BMP3 ####[facility] [address] [facility] [place] #### OSM ####[facility] [place] [address] Metamyelocytes 3 % Abnormal <1 [facility] Comment on above: Performed By: #### P HOS3, MDIFF, MG3, HEMDF, BMP3 ####[facility] [address] [facility] [place], [place] #### OSM ####[facility] [place] [address] Monocytes 2 % Normal 2-10 [facility] Comment on above: Performed By: #### P HOS3, MDIFF, MG3, HEMDF, BMP3 ####[facility] [address] [place] [address]#### OSM ####[facility] [address] [place] [address] Myelocytes 1 % Abnormal <1 [facility] Comment on above: Performed By: #### P HOS3, MDIFF, MG3, HEMDF, BMP3 ####[facility] [address] [facility], [place] #### OSM ####[facility] [address] [place] [address] RBC Morphology See Prev Normal [facility] Comment on above: Performed By: #### P HOS3, MDIFF, MG3, HEMDF, BMP3 ####[facility] [address] [place], [place] #### OSM ####[facility] [address] [place] [address] Seg Neutrophils 77 % Normal 40-80 [facility] Comment on above: Performed By: #### P HOS3, MDIFF, MG3, HEMDF, BMP3 ####[facility] [address] [facility], [place] #### OSM ####[facility] [address] [place] [address] Manual DifferentialOrdered B y: Michelle Petty on 07-01-2021 Absolute Baso # 0.0 10*3/uL 0.0 - 0.2 10*3/uL [facility] Work Phone: [phone] Absolute Eos # 0.2 10*3/uL 0.0 - 0.5 10*3/uL [facility] Work Phone: [phone] Absolute Lymph # 0.8 10*3/uL Low 1.1 - 4.5 10*3/uL [facility] Work Phone: [phone] Absolute [place] # 0.1 10*3/uL Low 0.2 - 1.1 10*3/uL [facility] Work Phone: [phone] Absolute Neut # 4.2 10*3/uL 2.2 - 8.2 10*3/uL [facility] Work Phone: [phone] Bands 0 % 0 - 3 % [facility] Work Phone: [phone] Basophils/100 WBC (Bld) 0 % 0 - 2 % [facility] Work Phone: [phone] Eosinophils/100 WBC (Bld) 3 % 1 - 6 % [facility] Work Phone: [phone] Interpretation and review of laboratory results Abnormal [facility] Work Phone: [phone] Lymphocytes/100 WBC (Bld) 14 % Low 20 - 40 % [facility] Work Phone: [phone] Metamyelocytes 3 % Abnormal <1 [facility] Work Phone: [phone] Monocytes/100 WBC (Bld) 2 % 2 - 10 % [facility] Work Phone: [phone] Myelocytes 1 % Abnormal <1 [facility] Work Phone: [phone] RBC (Bld) [#/Vol] See Prev [facility] Work Phone: [phone] Seg Neutrophils 77 % 40 - 80 % [facility] Work Phone: [phone] TOTAL CELLS COUNTED 100 [facility] Work Phone: [phone] [facility] Work Phone: [phone] [facility] Work Phone: [phone] Panel InformationOrdered By: Michelle Petty on 07-01-2021 Interpretation and review of laboratory results Abnormal [facility] Work Phone: [phone] [facility] Work Phone: [phone] [facility] Work Phone: [phone] OsmolalityOrdered By: Lindsey Joyce on 07-01-2021 Interpretation and review of laboratory results Abnormal [facility] Work Phone: [phone] Serum Osmolality 309 mosm/kg High 280 - 300 mosm/kg [facility] Work Phone: [phone] [facility] Work Phone: [phone] [facility] Work Phone: [phone] Osmolality,Serumon 1 Osmolality,Serum 309 mosm/kg High 280-300 [facility] Comment on above: Performed By: #### P HOS3, MDIFF, MG3, HEMDF, BMP3 ####[address] [place] [address]#### OSM ####[facility] [address] [place] [address] POCT GlucoseOrdered By: Jessica Soni on 07-01-2021 Glucose [Mass/Vol] 187 mg/dL High 70 - 100 mg/dL [facility] Work Phone: Interpretation and review of laboratory results Abnormal [facility] Work Phone: [facility] Work Phone: [facility] Work Phone: Glucose [Mass/Vol] 148 mg/dL High 70 - 100 mg/dL [facility] Work Phone: Interpretation and review of laboratory results Abnormal [facility] Work Phone: [facility] Work Phone: [facility] Work Phone: POCT GlucoseOrdered By: Gennaro Parsons on 07-01-2021 Glucose [Mass/Vol] 165 mg/dL High 70 - 100 mg/dL [facility] Work Phone: Interpretation and review of laboratory results Abnormal [facility] Work Phone: [facility] Work Phone: [facility] Work Phone: Phosphoruson 07-01-2021 Phosphate [Mass/Vol] 6.4 mg/dL High 2.5-4.5 [facility] Comment on above: Performed By: #### P HAM3TYLER, MG3, HEMDF, BMP3 ####[address] [place] [address]#### OSM ####[address] [facility] [place] [address] PhosphorusOrdered By: Michelle pearson on 07-01-2021 Phosphate [Mass/Vol] 6.4 mg/dL High 2.5 - 4 .5 mg/dL [facility] Work Phone: Basic Metabolic Panelon 08-0 Calcium [Mass/Vol] 8.5 mg/dL Normal 8.4-10.4 [facility] Comment on above: Performed By: #### B MP3, PHOS3, LFT3, MG3, HEMDF ####[facility] [facility] [place] [address]#### OSM ####[facility] [place] [address] Glucose [Mass/Vol] 119 mg/dL High 70-100 [facility] Comment on above: Performed By: #### B MP3, PHOS3, LFT3, MG3, HEMDF ####[place] [address] [facility] [place] [address]#### OSM ####[facility] [place] [address] Urea nitrogen [Mass/Vol] 58 mg/dL High 7-20 [facility] Comment on above: Performed By: #### B MP3, PHOS3, LFT3, MG3, HEMDF ####[place] [address] [facility] [place] #### OSM ####[facility] [place] [address] Anion gap [Moles/Vol] 6 mmol/L Normal 3-13 [facility] Comment on above: Performed By: #### B MP3, PHOS3, LFT3, MG3, HEMDF ####[place] [address] [facility] [place] #### OSM ####[facility] [place] [address] CO2 [Moles/Vol] 24 mmol/L Normal 22-30 [facility] Comment on above: Performed By: #### B MP3, PHOS3, LFT3, MG3, HEMDF ####[facility] [facility] [place] #### OSM ####[facility] [place] [address] Creatinine [Mass/Vol] 2.61 mg/dL High 0.52-1.25 [facility] Comment on above: Performed By: #### B MP3, PHOS3, LFT3, MG3, HEMDF ####[employer] [place] [address]#### OSM ####[address] [facility] [place] [address] GFR/1.73 sq M.predicted among blacks MDRD (S/P/Bld) [Vol rate/Area] 23.3 mL/min/{1.73_m2} Abnormal >60 [facility] Comment on above: Performed By: #### B MP3, PHOS3, LFT3, MG3, HEMDF ####[address] [place] [address]#### OSM ####[address] [place] [address] GFR/1.73 sq M.predicted among non-blacks MDRD (S/P/Bld) [Vol rate/Area] 20.1 mL/min/{1.73_m2} Abnormal >60 [facility] Comment on above: Result Comment: KDIG O guidelines provide the following GFR categories:Stage GFR(ml/min/1.73 m2) TermsG1 >=90 Normal or highG2 60-89 Mildly decreased*G3a 45-59 Mildly to moderately xqeysorqrO4l 30-44 Moderately to severely decreasedG4 15-29 Severely decreasedG5 <15 Kidney failure*Relative to young adult level.In the absence of evidence of kidney damage, neither GFRcategory G1 nor G2 fulfill the criteria for CKD.The CKD-EPI equation is validated in individuals 18 yearsof age and older. Currently the best equation forestimating glomerular filtration rate (GFR) from serumcreatinine in children is the Bedside Arechiga equation.It is less accurate in patients with extremes of musclemass, restriction of dietary protein, ingestion of creatine,extra-renal metabolism of creatinine, or treatment withmedications that affect renal tubular creatinine secretion. Performed By: #### B MP3, PHOS3, LFT3, MG3, HEMDF ####[address] [place] [address]#### OSM ####[address] [place] [address] Potassium [Moles/Vol] 5.2 mmol/L High 3.5-5.1 [facility] Comment on above: Performed By: #### B MP3, PHOS3, LFT3, MG3, HEMDF ####[facility] [address] [place] [address]#### OSM ####[facility] [place] [address] Sodium [Moles/Vol] 134 mmol/L Low 135-145 [facility] Comment on above: Performed By: #### B MP3, PHOS3, LFT3, MG3, HEMDF ####[facility] [place] [address]#### OSM ####[facility] [place] [address] Chloride [Moles/Vol] 104 mmol/L Normal 98-107 [facility] Comment on above: Performed By: #### B MP3, PHOS3, LFT3, MG3, HEMDF ####[facility] [address] [place] [address]#### OSM ####[facility] [place] [address] Basic Metabolic PanelOrdered By: Silver Nick on 06-30-2021 Anion gap [Moles/Vol] 6 mmol/L 3 - 13 mmol/L [facility] Work Phone: Calcium [Mass/Vol] 8.5 mg/dL 8.4 - 10. 4 mg/dL [facility] Work Phone: Chloride [Moles/Vol] 104 mmol/L 98 - 10 7 mmol/L [facility] Work Phone: CO2 [Moles/Vol] 24 mmol/L 22 - 30 mmol/L [facility] Work Phone: Creatinine [Mass/Vol] 2.61 mg/dL High 0.52 - 1.25 mg/dL [facility] Work Phone: EGFR IF NonAfrican [place] 20.1 mL/min Abnormal >60 [facility] Work Phone: GFR/1.73 sq M.predicted among blacks MDRD (S/P/Bld) [Vol rate/Area] 23.3 mL/min/{1.73_m2} Abnormal >60 [facility] Work Phone: Glucose [Mass/Vol] 119 mg/dL High 70 - 100 mg/dL [facility] Work Phone: Potassium [Moles/Vol] 5.2 mmol/L High 3.5 - 5.1 mmol/L [facility] Work Phone: Sodium [Moles/Vol] 134 mmol/L Low 135 - 145 mmol/L [facility] Work Phone: Urea nitrogen (BldV) [Mass/Vol] 58 mg/dL High 7 - 20 mg/dL [facility] Work Phone: CBC auto differentialOrdered By: Michelle Petty on 06-30-2021 Absolute Baso # 0.0 10*3/uL 0.0 - 0.2 10*3/uL [facility] Work Phone: Absolute Eos # 0.3 10*3/uL 0.0 - 0.5 10*3/uL [facility] Work Phone: Absolute Lymph # 1.0 10*3/uL 1.0 - 4.3 10*3/uL [facility] Work Phone: Absolute [place] # 0.6 10*3/uL 0.0 - 0.8 10*3/uL [facility] Work Phone: Absolute Neut # 4.8 10*3/uL 1.8 - 7.0 10*3/uL [facility] Work Phone: [phone] Basophils/100 WBC (Bld) 0.3 % 0.0 - 2.0 % [facility] Work Phone: [phone] Eosinophils/100 WBC (Bld) 5.0 % 1.0 - 6.0 % [facility] Work Phone: Granulocytes/100 WBC (Bld) 70.9 % 40.0 - 80.0 % [facility] Work Phone: Hematocrit (Bld) [Volume fraction] 28.8 % Low 35.0 - 47.0 % [facility] Work Phone: [phone] Hemoglobin.gastrointes tinal spec 1 Ql (Stl) 9.3 g/dL Low 11.7 - 16.0 g/dL [facility] Work Phone: [phone] Interpretation and review of laboratory results Abnormal [facility] Work Phone: [phone] Lymphocytes/100 WBC (Bld) 15.0 % Low 20.0 - 40.0 % [facility] Work Phone: [phone] MCH (RBC) [Entitic mass] 23.8 pg Low 26.0 - 34.0 pg [facility] Work Phone: [phone] MCHC (RBC) [Mass/Vol] 32.1 % 32.0 - 36.0 % [facility] Work Phone: [phone] MCV (RBC) [Entitic vol] 74.1 fL Low 79.0 - 98.0 fL [facility] Work Phone: [phone] Monocytes/100 WBC (Bld) 8.8 % 2.0 - 10.0 % [facility] Work Phone: [phone] Platelet distribution width (Bld) [Ratio] 24.6 % High 11.5 - 14.5 % [facility] Work Phone: [phone] Platelet mean volume (Bld) [Entitic vol] 7.3 fL Low 7.4 - 10.4 fL [facility] Work Phone: [phone] Platelets (Bld) [#/Vol] 206 10*3/uL 140 - 440 10*3/uL [facility] Work Phone: [phone] RBC (Bld) [#/Vol] 3.89 10*6/uL 3.80 - 5.2 0 10*6/uL [facility] Work Phone: [phone] WBC (Bld) [#/Vol] 6.8 10*3/uL 3.6 - 10.7 10*3/uL [facility] Work Phone: [phone] [facility] Work Phone: [phone] [facility] Work Phone: [phone] Glucose,Bedsideon 06-30-2021 Glucose [Mass/Vol] 129 mg/dL High 70-100 [facility] Comment on above: Result Comment: Test performed by glucose meter. Results may be 10%-15% lowerthan serum/plasma values. (CLIA ID [id number]) Performed By: #### B GLU ####[employer] [place], [place] Glucose [Mass/Vol] 132 mg/dL High 70-100 [facility] Comment on above: Result Comment: Test performed by glucose meter. Results may be 10%-15% lowerthan serum/plasma values. (CLIA ID [id number]) Performed By: #### B GLU ####[address] [place], [place] Glucose [Mass/Vol] 104 mg/dL [facility] [address] [facility] Comment on above: Result Comment: Test performed by glucose meter. Results may be 10%-15% lowerthan serum/plasma values. (CLIA ID [id number]) Performed By: #### B GLU ####[address] [place], [place] Glucose,BedsideOrdered By: Sly Soni on 06-30-2021 Glucose [Mass/Vol] 146 mg/dL [facility] [address] Work Phone: Comment on above: Result Comment: Test performed by glucose meter. Results may be 10%-15% lowerthan serum/plasma values. (CLIA ID [id number]) Performed By: #### B GLU ####[address] [place], [place] Hemogram w/ Autodiffon 06-30 Abs Baso Cnt 0.0 10*3/uL Normal 0.0-0.2 [facility] Comment on above: Performed By: #### B MP3, PHOS3, LFT3, MG3, HEMDF ####[address] [place], [place] #### OSM ####[address] [place] [address] Abs Neutrophile Cnt 4.8 10*3/uL Normal 1.8-7.0 [facility] Comment on above: Performed By: #### B MP3, PHOS3, LFT3, MG3, HEMDF ####[id number] [place], [place] #### OSM ####[facility] [place] [address] Basophils/100 WBC (Bld) 0.3 % Normal 0.0-2.0 [facility] Comment on above: Performed By: #### B MP3, PHOS3, LFT3, MG3, HEMDF ####[address] #### OSM ####[facility] [place] [address] Eosinophils (Bld) [#/Vol] 0.3 10*3/uL Normal 0.0-0.5 [facility] Comment on above: Performed By: #### B MP3, PHOS3, LFT3, MG3, HEMDF ####[address] #### OSM ####[facility] [place] [address] Eosinophils/100 WBC (Bld) 5.0 % Normal 1.0-6.0 [facility] Comment on above: Performed By: #### B MP3, PHOS3, LFT3, MG3, HEMDF ####[address] [id number] [place], [place] #### OSM ####[facility] [place] [address] Erythrocyte distribution width (RBC) [Ratio] 24.6 % High 11.5-14.5 [facility] Comment on above: Performed By: #### B MP3, PHOS3, LFT3, MG3, HEMDF ####[id number] [place], [place] #### OSM ####[facility] [place] [address] Granulocytes/100 WBC (Bld) 70.9 % Normal 40.0-80.0 [facility] Comment on above: Performed By: #### B MP3, PHOS3, LFT3, MG3, HEMDF ####[facility] [id number] [place], [place] #### OSM ####[facility] [place] [address] Hematocrit (Bld) [Volume fraction] 28.8 % Low 35.0-47.0 [facility] Comment on above: Performed By: #### B MP3, PHOS3, LFT3, MG3, HEMDF ####[facility] [facility] [address] #### OSM ####[facility] [employer] [address] [place] [address] Hemoglobin (Bld) [Mass/Vol] 9.3 g/dL Low 11.7-16.0 [facility] Comment on above: Performed By: #### B MP3, PHOS3, LFT3, MG3, HEMDF ####[facility] [employer] [address] #### OSM ####[facility] [employer] [address] [place] [address] Lymphocytes (Bld) [#/Vol] 1.0 10*3/uL Normal 1.0-4.3 [facility] Comment on above: Performed By: #### B MP3, PHOS3, LFT3, MG3, HEMDF ####[facility] [employer] [address] [place], [place] #### OSM ####[facility] [employer] [address] [place] [address] Lymphocytes/100 WBC (Bld) 15.0 % Low 20.0-40.0 [facility] Comment on above: Performed By: #### B MP3, PHOS3, LFT3, MG3, HEMDF ####[facility] [employer] [address] #### OSM ####[facility] [place] [address] MCH (RBC) [Entitic mass] 23.8 pg Low 26.0-34.0 [facility] Comment on above: Performed By: #### B MP3, PHOS3, LFT3, MG3, HEMDF ####[id number] [place], [place] #### OSM ####[facility] [place] [address] MCHC 32.1 % Normal 32.0-36.0 [facility] Comment on above: Performed By: #### B MP3, PHOS3, LFT3, MG3, HEMDF ####[address] #### OSM ####[facility] [facility] [place] [address] MCV (RBC) [Entitic vol] 74.1 fL Low 79.0-98.0 [facility] Comment on above: Performed By: #### B MP3, PHOS3, LFT3, MG3, HEMDF ####[address] #### OSM ####[facility] [facility] [place] [address] Monocytes (Bld) [#/Vol] 0.6 10*3/uL Normal 0.0-0.8 [facility] Comment on above: Performed By: #### B MP3, PHOS3, LFT3, MG3, HEMDF ####[address] #### OSM ####[facility] [facility] [place] [address] Monocytes/100 WBC (Bld) 8.8 % Normal 2.0-10.0 [facility] Comment on above: Performed By: #### B MP3, PHOS3, LFT3, MG3, HEMDF ####[address] #### OSM ####[facility] [facility] [place] [address] Platelet mean volume (Bld) [Entitic vol] 7.3 fL Low 7.4-10.4 [facility] Comment on above: Performed By: #### B MP3, PHOS3, LFT3, MG3, HEMDF ####[id number] [facility] #### OSM ####[facility] [place] [address] Platelets (Bld) [#/Vol] 206 10*3/uL Normal 140-440 [facility] Comment on above: Performed By: #### B MP3, PHOS3, LFT3, MG3, HEMDF ####[address] [facility] #### OSM ####[facility] [place] [address] RBC (Bld) [#/Vol] 3.89 10*6/uL Normal 3.80-5.20 [facility] Comment on above: Performed By: #### B MP3, PHOS3, LFT3, MG3, HEMDF ####[address] [id number] . [facility] #### OSM ####[facility] [place] [address] WBC (Bld) [#/Vol] 6.8 10*3/uL Normal 3.6-10.7 [facility] Comment on above: Performed By: #### B MP3, PHOS3, LFT3, MG3, HEMDF ####[address] [id number] [facility] [place] #### OSM ####[facility] [place] [address] Hepatic Functionon 1 ALP [Catalytic activity/Vol] 83 U/L Normal 38-126 [facility] Comment on above: Performed By: #### B MP3, PHOS3, LFT3, MG3, HEMDF ####[place] [id number] [facility] #### OSM ####[facility] [place] [address] ALT [Catalytic activity/Vol] 30 U/L Normal 0-34 [facility] Comment on above: Result Comment: The ALT test is performed by an updated assay method.Please note that the reference intervals have beenchanged and are now sex specific. Performed By: #### B MP3, PHOS3, LFT3, MG3, HEMDF ####[place] [address] [facility] #### OSM ####[facility] [place] [address] AST [Catalytic activity/Vol] 29 U/L Normal 15-46 [facility] Comment on above: Performed By: #### B MP3, PHOS3, LFT3, MG3, HEMDF ####[address] [place] #### OSM ####[facility] [place] [address] Bilirubin [Mass/Vol] 0.4 mg/dL Normal 0.2-1.3 [facility] Comment on above: Performed By: #### B MP3, PHOS3, LFT3, MG3, HEMDF ####[address] [place] #### OSM ####[facility] [place] [address] Bilirubin.indirect [Mass/Vol] 0.0 mg/dL Normal 0.0-0.3 [facility] Comment on above: Performed By: #### B MP3, PHOS3, LFT3, MG3, HEMDF ####[place] [address] [address] [address] [facility] [place] #### OSM ####[facility] [place] [address] Protein [Mass/Vol] 6.1 g/dL Low 6.3-8.2 [facility] Comment on above: Performed By: #### B MP3, PHOS3, LFT3, MG3, HEMDF ####[place] [address] [facility] [place] #### OSM ####[facility] [place] [address] Albumin [Mass/Vol] 2.8 g/dL Low 3.5-5.0 [facility] Comment on above: Performed By: #### B MP3, PHOS3, LFT3, MG3, HEMDF ####[facility] [employer] [address] [place], [place] #### OSM ####[facility] [employer] [address] [place] [address] Hepatic Function PanelOrdere d By: Tello Sterling on 06-30-2021 Albumin [Mass/Vol] 2.8 g/dL Low 3.5 - 5.0 g/dL [facility] Work Phone: [phone] ALP (Bld) [Catalytic activity/Vol] 83 U/L 38 - 126 U/L [facility] Work Phone: [phone] ALT [Catalytic activity/Vol] 30 U/L 0 - 34 U/L [facility] Work Phone: [phone] AST [Catalytic activity/Vol] 29 U/L 15 - 46 U/L [facility] Work Phone: [phone] Bilirubin [Mass/Vol] 0.4 mg/dL 0.2 - 1 .3 mg/dL [facility] Work Phone: [phone] Bilirubin.indirect [Mass/Vol] 0.0 mg/dL 0.0 - 0.3 mg/dL [facility] Work Phone: [phone] Free PSA/Total PSA [Mass fraction] 6.1 g/dL Low 6.3 - 8.2 g/dL [facility] Work Phone: [phone] Magnesiumon 06-30-2021 Magnesium [Mass/Vol] 1.9 mg/dL Normal 1.6-2.3 [facility] [employer] [facility] Comment on above: Performed By: #### B MP3, PHOS3, LFT3, MG3, HEMDF ####[facility] [employer] [id number] [place], [place] #### OSM ####[facility] [employer] [address] [place] [address] MagnesiumOrdered By: Michelle lauren on 06-30-2021 Magnesium [Mass/Vol] 1.9 mg/dL 1.6 - 2 .3 mg/dL [facility] Work Phone: [phone] Panel InformationOrdered By: Lindsey Joyce on 06-30-2021 Interpretation and review of laboratory results Abnormal [facility] Work Phone: [phone] [facility] Work Phone: [phone] [facility] Work Phone: [phone] Panel InformationOrdered By: Michelle Petty on 06-30-2021 Interpretation and review of laboratory results Abnormal [facility] Work Phone: [phone] [facility] Work Phone: [phone] [facility] Work Phone: [phone] OsmolalityOrdered By: Lindsey Joyce on 06-30-2021 Serum Osmolality 302 mosm/kg High 280 - 300 mosm/kg [facility] Work Phone: [phone] Osmolality, UrineOrdered By: April Araujo on 06-30-2021 Interpretation and review of laboratory results Abnormal [facility] Work Phone: [phone] Osmolality, Ur 213 mosm/kg Low 300 - 1000 mosm/kg [facility] Work Phone: [phone] [facility] Work Phone: [phone] [facility] Work Phone: [phone] Osmolality,Serumon 1 Osmolality,Serum 302 mosm/kg High 280-300 [facility] Comment on above: Performed By: #### B MP3, PHOS3, LFT3, MG3, HEMDF ####[address] [place], [place] #### OSM ####[place] [address] [facility] [place] [address] Osmolality,Urineon 1 Osmolality,Urine 213 mosm/kg Low 300-1000 [facility] Comment on above: Performed By: #### O SMUR ####[place] [address] [facility] [place] [address]#### NAURR ####[address] [place] [address] POCT GlucoseOrdered By: Jessica Soni on 06-30-2021 Glucose [Mass/Vol] 129 mg/dL High 70 - 100 mg/dL [facility] Work Phone: [phone] Interpretation and review of laboratory results Abnormal [facility] Work Phone: [phone] [facility] Work Phone: [phone] [facility] Work Phone: [phone] Glucose [Mass/Vol] 132 mg/dL High 70 - 100 mg/dL [facility] Work Phone: [phone] Interpretation and review of laboratory results Abnormal [facility] Work Phone: [phone] [facility] Work Phone: [phone] [facility] Work Phone: [phone] Glucose [Mass/Vol] 104 mg/dL High 70 - 100 mg/dL [facility] Work Phone: [phone] Interpretation and review of laboratory results Abnormal [facility] Work Phone: [phone] [facility] Work Phone: [phone] [facility] Work Phone: [phone] Phosphoruson 06-30-2021 Phosphate [Mass/Vol] 6.5 mg/dL High 2.5-4.5 [facility] Comment on above: Performed By: #### B MP3, PHOS3, LFT3, MG3, HEMDF ####[facility] [address] [place] [address]#### OSM ####[facility] [employer] [address] [place] [address] PhosphorusOrdered By: Michelle pearson on 06-30-2021 Phosphate [Mass/Vol] 6.5 mg/dL High 2.5 - 4 .5 mg/dL [facility] Work Phone: Sodium, Ur Randomon 06-30-20 21 Sodium [Moles/Vol] 31 mmol/L Normal 30-90 [facility] Comment on above: Performed By: #### O SMUR ####[facility] [employer] [address] [place] [address]#### NAURR ####[address] [place] [address] Basic Metabolic Panelon 07-3 Anion gap [Moles/Vol] 7 mmol/L Normal 3-13 [facility] Comment on above: Performed By: #### B MP3 ####[facility] [employer] [address] [place] [address] Calcium [Mass/Vol] 8.5 mg/dL Normal 8.4-10.4 [facility] Comment on above: Performed By: #### B MP3 ####[facility] [employer] [address] [place] [address] CO2 [Moles/Vol] 25 mmol/L Normal 22-30 [facility] Comment on above: Performed By: #### B MP3 ####[facility] [employer] [address] [place] [address] Creatinine [Mass/Vol] 2.86 mg/dL High 0.52-1.25 [facility] Comment on above: Performed By: #### B MP3 ####[facility] [employer] [address] [place] [address] GFR/1.73 sq M.predicted among blacks MDRD (S/P/Bld) [Vol rate/Area] 20.9 mL/min/{1.73_m2} Abnormal >60 [facility] Comment on above: Performed By: #### B MP3 ####[facility] [employer] [address] [place] [address] GFR/1.73 sq M.predicted among non-blacks MDRD (S/P/Bld) [Vol rate/Area] 18.0 mL/min/{1.73_m2} Abnormal >60 [facility] Comment on above: Result Comment: KDIG O guidelines provide the following GFR categories:Stage GFR(ml/min/1.73 m2) TermsG1 >=90 Normal or highG2 60-89 Mildly decreased*G3a 45-59 Mildly to moderately [id number] 30-44 Moderately to severely decreasedG4 15-29 Severely decreasedG5 <15 Kidney failure*Relative to young adult level.In the absence of evidence of kidney damage, neither GFRcategory G1 nor G2 fulfill the criteria for CKD.The CKD-EPI equation is validated in individuals 18 yearsof age and older. Currently the best equation forestimating glomerular filtration rate (GFR) from serumcreatinine in children is the Bedside Arechiga equation.It is less accurate in patients with extremes of musclemass, restriction of dietary protein, ingestion of creatine,extra-renal metabolism of creatinine, or treatment withmedications that affect renal tubular creatinine secretion. Performed By: #### B MP3 ####[facility] [place] Glucose [Mass/Vol] 115 mg/dL High 70-100 [facility] Comment on above: Performed By: #### B MP3 ####[address] [place] Glucose [Mass/Vol] 114 mg/dL High 70-100 [facility] Comment on above: Performed By: #### B MP3 ####[address] [place] Urea nitrogen [Mass/Vol] 57 mg/dL High 7-20 [facility] Comment on above: Performed By: #### B MP3 ####[address] [place] Urea nitrogen [Mass/Vol] 58 mg/dL High 7-20 [facility] Comment on above: Performed By: #### B MP3 ####[address] [place] Anion gap [Moles/Vol] 7 mmol/L Normal 3-13 [facility] Comment on above: Performed By: #### B MP3 ####[address] [place] CO2 [Moles/Vol] 25 mmol/L Normal 22-30 [facility] Comment on above: Performed By: #### B MP3 ####[address] [place] Creatinine [Mass/Vol] 2.86 mg/dL High 0.52-1.25 [facility] Comment on above: Performed By: #### B MP3 ####[address] [place] GFR/1.73 sq M.predicted among blacks MDRD (S/P/Bld) [Vol rate/Area] 20.9 mL/min/{1.73_m2} Abnormal >60 [facility] Comment on above: Performed By: #### B MP3 ####[address] GFR/1.73 sq M.predicted among non-blacks MDRD (S/P/Bld) [Vol rate/Area] 18.0 mL/min/{1.73_m2} Abnormal >60 [facility] Comment on above: Result Comment: KDIG O guidelines provide the following GFR categories:Stage GFR(ml/min/1.73 m2) TermsG1 >=90 Normal or highG2 60-89 Mildly decreased*G3a 45-59 Mildly to moderately [id number] 30-44 Moderately to severely decreasedG4 15-29 Severely decreasedG5 <15 Kidney failure*Relative to young adult level.In the absence of evidence of kidney damage, neither GFRcategory G1 nor G2 fulfill the criteria for CKD.The CKD-EPI equation is validated in individuals 18 yearsof age and older. Currently the best equation forestimating glomerular filtration rate (GFR) from serumcreatinine in children is the Bedside Arechiga equation.It is less accurate in patients with extremes of musclemass, restriction of dietary protein, ingestion of creatine,extra-renal metabolism of creatinine, or treatment withmedications that affect renal tubular creatinine secretion. Performed By: #### B MP3 ####[address] Chloride [Moles/Vol] 100 mmol/L Normal 98-107 [facility] Comment on above: Performed By: #### B MP3 ####[address] [place], [place] Potassium [Moles/Vol] 5.0 mmol/L Normal 3.5-5.1 [facility] Comment on above: Performed By: #### B MP3 ####[address] [place], [place] Sodium [Moles/Vol] 132 mmol/L Low 135-145 [facility] Comment on above: Performed By: #### B MP3 ####[address] [address] Chloride [Moles/Vol] 100 mmol/L Normal 98-107 [facility] Comment on above: Performed By: #### B MP3 ####[facility] [place] [address] Potassium [Moles/Vol] 5.0 mmol/L Normal 3.5-5.1 [facility] Comment on above: Performed By: #### B MP3 ####[facility] [place] [address] Sodium [Moles/Vol] 131 mmol/L Low 135-145 [facility] Comment on above: Performed By: #### B MP3 ####[address] [place] [place] Basic Metabolic PanelOrdered By: Silver Nick on 06-29-2021 Anion gap [Moles/Vol] 7 mmol/L 3 - 13 mmol/L [facility] Work Phone: Calcium [Mass/Vol] 8.5 mg/dL 8.4 - 10. 4 mg/dL [facility] Work Phone: Chloride [Moles/Vol] 100 mmol/L 98 - 10 7 mmol/L [facility] Work Phone: CO2 [Moles/Vol] 25 mmol/L 22 - 30 mmol/L [facility] Work Phone: Creatinine [Mass/Vol] 2.86 mg/dL High 0.52 - 1.25 mg/dL [facility] Work Phone: EGFR IF NonAfrican [place] 18.0 mL/min Abnormal >60 [facility] Work Phone: GFR/1.73 sq M.predicted among blacks MDRD (S/P/Bld) [Vol rate/Area] 20.9 mL/min/{1.73_m2} Abnormal >60 [facility] Work Phone: Glucose [Mass/Vol] 114 mg/dL High 70 - 100 mg/dL [facility] Work Phone: Potassium [Moles/Vol] 5.0 mmol/L 3.5 - 5.1 mmol/L [facility] Work Phone: [phone] Sodium [Moles/Vol] 131 mmol/L Low 135 - 145 mmol/L [facility] Work Phone: [phone] Urea nitrogen (BldV) [Mass/Vol] 58 mg/dL High 7 - 20 mg/dL [facility] Work Phone: [phone] Anion gap [Moles/Vol] 7 mmol/L 3 - 13 mmol/L [facility] Work Phone: [phone] Calcium [Mass/Vol] 8.5 mg/dL 8.4 - 10. 4 mg/dL [facility] Work Phone: [phone] Chloride [Moles/Vol] 100 mmol/L 98 - 10 7 mmol/L [facility] Work Phone: [phone] CO2 [Moles/Vol] 25 mmol/L 22 - 30 mmol/L [facility] Work Phone: [phone] Creatinine [Mass/Vol] 2.86 mg/dL High 0.52 - 1.25 mg/dL [facility] Work Phone: [phone] EGFR IF NonAfrican [place] 18.0 mL/min Abnormal >60 [facility] Work Phone: [phone] GFR/1.73 sq M.predicted among blacks MDRD (S/P/Bld) [Vol rate/Area] 20.9 mL/min/{1.73_m2} Abnormal >60 [facility] Work Phone: [phone] Glucose [Mass/Vol] 115 mg/dL High 70 - 100 mg/dL [facility] Work Phone: [phone] Interpretation and review of laboratory results Abnormal [facility] Work Phone: [phone] Potassium [Moles/Vol] 5.0 mmol/L 3.5 - 5.1 mmol/L [facility] Work Phone: [phone] Sodium [Moles/Vol] 132 mmol/L Low 135 - 145 mmol/L [facility] Work Phone: [phone] Urea nitrogen (BldV) [Mass/Vol] 57 mg/dL High 7 - 20 mg/dL [facility] Work Phone: [phone] [facility] Work Phone: [phone] [facility] Work Phone: [phone] CBC auto differentialOrdered By: Michelle Petty on 06-29-2021 Hematocrit (Bld) [Volume fraction] 35.1 % 35.0 - 47.0 % [employer] Work Phone: [phone] Hemoglobin.gastrointes tinal spec 1 Ql (Stl) 11.1 g/dL Low 11.7 - 16.0 g/dL [employer] Work Phone: [phone] Interpretation and review of laboratory results Abnormal [employer] Work Phone: MCH (RBC) [Entitic mass] 23.8 pg Low 26.0 - 34.0 pg [employer] Work Phone: MCHC (RBC) [Mass/Vol] 31.5 % Low 32.0 - 36.0 % [facility] Work Phone: MCV (RBC) [Entitic vol] 75.5 fL Low 79.0 - 98.0 fL [employer] Work Phone: Platelet distribution width (Bld) [Ratio] 25.3 % High 11.5 - 14.5 % [employer] Work Phone: Platelet mean volume (Bld) [Entitic vol] 7.5 fL 7.4 - 10.4 fL [employer] Work Phone: Platelets (Bld) [#/Vol] 163 10*3/uL 140 - 440 10*3/uL [employer] Work Phone: RBC (Bld) [#/Vol] 4.65 10*6/uL 3.80 - 5.2 0 10*6/uL [employer] Work Phone: [phone] WBC (Bld) [#/Vol] 4.6 10*3/uL 3.6 - 10.7 10*3/uL [employer] Work Phone: [phone] [employer] Work Phone: [phone] [facility] Work Phone: [phone] Glucose,Bedsideon 06-29-2021 Glucose [Mass/Vol] 141 mg/dL High 70-100 [facility] Comment on above: Result Comment: Test performed by glucose meter. Results may be 10%-15% lowerthan serum/plasma values. (CLIA ID [id number]) Performed By: #### B GLU ####[address] [place], [place] Glucose [Mass/Vol] 185 mg/dL High 70-100 [facility] Comment on above: Result Comment: Test performed by glucose meter. Results may be 10%-15% lowerthan serum/plasma values. (CLIA ID [id number]) Performed By: #### B GLU ####[address] Glucose [Mass/Vol] 146 mg/dL High 70-100 [facility] Comment on above: Result Comment: Test performed by glucose meter. Results may be 10%-15% lowerthan serum/plasma values. (CLIA ID [id number]) Performed By: #### B GLU ####[id number] [place], [place] Hemogram w/ Autodiffon 06-29 Erythrocyte distribution width (RBC) [Ratio] 25.3 % High 11.5-14.5 [facility] Comment on above: Performed By: #### P HOS3 HEMROSA BLOOD MDIFF ####[id number] [place], [place] Hematocrit (Bld) [Volume fraction] 35.1 % Normal 35.0-47.0 [facility] Comment on above: Performed By: #### P HOS3 HEMROSA BLOOD MDIFF ####[address] Hemoglobin (Bld) [Mass/Vol] 11.1 g/dL Low 11.7-16.0 [facility] Comment on above: Performed By: #### P HOS3 HEMDF MGMD VikkiIFF ####[address] MCH (RBC) [Entitic mass] 23.8 pg Low 26.0-34.0 [facility] Comment on above: Performed By: #### P HOS3 HEMDF, MGTYLER Florez ####[address] [place] MCHC 31.5 % Low 32.0-36.0 [facility] Comment on above: Performed By: #### P HOS3 HEMJEREMI MGTYLER Florez ####[id number] [place], [place] MCV (RBC) [Entitic vol] 75.5 fL Low 79.0-98.0 [facility] Comment on above: Performed By: #### P HOS3 HEMJEREMI MGMD VikkiIFF ####[address] [place], [place] Platelet mean volume (Bld) [Entitic vol] 7.5 fL Normal 7.4-10.4 [facility] Comment on above: Performed By: #### P HOS3 HEMJEREMI MGMD VikkiIFF ####[address] Platelets (Bld) [#/Vol] 163 10*3/uL Normal 140-440 [facility] Comment on above: Performed By: #### P HOSVikki HEMROSA BLOOD MDIFF ####[address] [place], [place] RBC (Bld) [#/Vol] 4.65 10*6/uL Normal 3.80-5.20 [facility] Comment on above: Performed By: #### P HOS3 HEMJEREMI MGMD VikkiIFF ####[address] [place], [place] WBC (Bld) [#/Vol] 4.6 10*3/uL Normal 3.6-10.7 [facility] Comment on above: Performed By: #### P HOS3 HEMDF MGMD VikkiIFF ####[address] Magnesiumon 06-29-2021 Magnesium [Mass/Vol] 2.0 mg/dL Normal 1.6-2.3 [facility] Comment on above: Performed By: #### P FERMÍN SILVA MG3, MDIFF ####[address] MagnesiumOrdered By: Michelle lauren on 06-29-2021 Magnesium [Mass/Vol] 2.0 mg/dL 1.6 - 2 .3 mg/dL [facility] Work Phone: Manual Diffon 06-29-2021 Abs Eosin Cnt 0.2 10*3/uL Normal 0.0-0.5 [facility] Comment on above: Performed By: #### P FERMÍN SILVA MG3, MDIFF ####[id number] [place], [place] Abs Lymph Cnt 0.4 10*3/uL Low 1.1-4.5 [facility] Comment on above: Performed By: #### P FERMÍN SILVA MG3, MDIFF ####[address] Abs Monocyte Cnt 0.3 10*3/uL Normal 0.2-1.1 [facility] Comment on above: Performed By: #### P FERMÍN SILVA MG3, MDIFF ####[address] [place], [place] Abs Neutrophile Cnt 3.6 10*3/uL Normal 2.2-8.2 [facility] Comment on above: Performed By: #### P HOS3 HEMROSA BLOOD MDIFF ####[address] [place], [place] Anisocytosis Slight Normal [facility] Comment on above: Performed By: #### P FERMÍN SILVA MG3, MDIFF ####[address] Elliptocytes Slight Normal [facility] Comment on above: Performed By: #### P HOS3 HEMROSA BLOOD MDIFF ####[address] [address] Eosinophils 4 % Normal 1-6 [facility] Comment on above: Performed By: #### P HOS3, HEMDF, MG3, MDIFF ####[address] [place], [place] Lymphocytes 9 % Low 20-40 [facility] Comment on above: Performed By: #### P HOS3, HEMDF, MG3, MDIFF ####[address] Metamyelocytes 1 % Abnormal <1 [facility] Comment on above: Performed By: #### P HOS3, HEMDF, MG3, MDIFF ####[address] [place], [place] Microcytosis Slight Normal [facility] Comment on above: Performed By: #### P HOS3, HEMDF, MG3, MDIFF ####[address] [place], [place] Monocytes 7 % Normal 2-10 [facility] [facility] Comment on above: Performed By: #### P HOS3, HEMDF, MG3, MDIFF ####[id number] [place], [place] Ovalocytes Slight Normal [facility] Comment on above: Performed By: #### P HOS3, HEMDF, MG3, MDIFF ####[id number] [place], [place] Poikilocytosis Slight Normal [facility] Comment on above: Performed By: #### P HOS3, HEMDF, MG3, MDIFF ####[id number] [place], [place] RBC Morphology ABNORMAL Normal [facility] Comment on above: Performed By: #### P HOS3, HEMDF, MG3, MDIFF ####[id number] [place], [place] Seg Neutrophils 79 % Normal 40-80 [facility] Comment on above: Performed By: #### P HOS3, HEMDF, MG3, MDIFF ####[address] [place], [place] Tear Drop Forms Slight Normal [facility] [place] [facility] Comment on above: Performed By: #### P HOS3, HEMROSA BLOOD MDIFF ####[facility] [address] [place], [place] Abs Baso Cnt 0.0 10*3/uL Normal 0.0-0.2 [facility] Comment on above: Performed By: #### P HOS3, HEMRSOA BLOOD, IFF ####[facility] [address] [place], [place] Bands 0 % Normal 0-3 [facility] Comment on above: Performed By: #### P HOS3FERMÍN MG3, IFF ####[address] Basophils 0 % Normal 0-2 [facility] Comment on above: Performed By: #### P HOS3, ROSA KOVACS MDIFF ####[facility] [employer] [address] Cells counted 100 Normal [facility] Comment on above: Performed By: #### P HOS3FERMÍN MG3, MDIFF ####[address] Manual DifferentialOrdered B y: Michelle Laquita on 06-29-2021 Absolute Baso # 0.0 10*3/uL 0.0 - 0.2 10*3/uL [facility] Work Phone: [phone] Absolute Eos # 0.2 10*3/uL 0.0 - 0.5 10*3/uL [facility] Work Phone: [phone] Absolute Lymph # 0.4 10*3/uL Low 1.1 - 4.5 10*3/uL [facility] Work Phone: [phone] Absolute [place] # 0.3 10*3/uL 0.2 - 1.1 10*3/uL [facility] Work Phone: [phone] Absolute Neut # 3.6 10*3/uL 2.2 - 8.2 10*3/uL [facility] Work Phone: [phone] Anisocytosis Slight [facility] Work Phone: [phone] Bands 0 % 0 - 3 % [facility] Work Phone: [phone] Basophils/100 WBC (Bld) 0 % 0 - 2 % [facility] Work Phone: [phone] Elliptocytes Slight [facility] Work Phone: [phone] Eosinophils/100 WBC (Bld) 4 % 1 - 6 % [facility] Work Phone: [phone] Interpretation and review of laboratory results Abnormal [facility] Work Phone: [phone] Lymphocytes/100 WBC (Bld) 9 % Low 20 - 40 % [facility] Work Phone: [phone] Metamyelocytes 1 % Abnormal <1 [facility] Work Phone: [phone] Microcytosis Slight [facility] Work Phone: [phone] Monocytes/100 WBC (Bld) 7 % 2 - 10 % [facility] Work Phone: [phone] Ovalocytes Slight [facility] Work Phone: [phone] Poikilocytes Slight [facility] Work Phone: [phone] RBC (Bld) [#/Vol] ABNORMAL [facility] Work Phone: [phone] Seg Neutrophils 79 % 40 - 80 % [facility] Work Phone: [phone] Tear Drop Cells Slight [facility] Work Phone: [phone] TOTAL CELLS COUNTED 100 [facility] Work Phone: [phone] [facility] Work Phone: [phone] [facility] Work Phone: [phone] No Panel InformationOrdered By: Michelle Petty on 06-29-2021 Interpretation and review of laboratory results Abnormal [facility] Work Phone: [phone] [facility] Work Phone: [phone] [facility] Work Phone: [phone] POCT GlucoseOrdered By: Jessica Soni on 06-29-2021 Glucose [Mass/Vol] 141 mg/dL High 70 - 100 mg/dL [facility] Work Phone: Interpretation and review of laboratory results Abnormal [facility] Work Phone: [facility] Work Phone: [phone] [facility] Work Phone: [phone] Glucose [Mass/Vol] 146 mg/dL High 70 - 100 mg/dL [facility] Work Phone: [phone] Interpretation and review of laboratory results Abnormal [facility] Work Phone: [phone] [facility] Work Phone: [phone] [facility] Work Phone: [phone] POCT GlucoseOrdered By: Gennaro Parsons on 06-29-2021 Glucose [Mass/Vol] 185 mg/dL High 70 - 100 mg/dL [facility] Work Phone: [phone] Interpretation and review of laboratory results Abnormal [facility] Work Phone: [phone] [facility] Work Phone: [phone] [facility] Work Phone: [phone] Phosphoruson 06-29-2021 Phosphate [Mass/Vol] 6.3 mg/dL High 2.5-4.5 [facility] Comment on above: Performed By: #### P HOS3, HEMDF, MG3, MDIFF ####[facility] [employer] [place] [address] PhosphorusOrdered By: Michelle pearson on 06-29-2021 Phosphate [Mass/Vol] 6.3 mg/dL High 2.5 - 4 .5 mg/dL [facility] Work Phone: [phone] SODIUM, URINE, RANDOMOrdered By: April Araujo on 06-29-2021 Sodium (U) [Moles/Vol] 31 mmol/L 30 - 90 mmol/L [facility] Work Phone: [phone] [facility] Work Phone: [phone] [facility] Work Phone: [phone] Basic Metabolic Panelon 06-01 Calcium [Mass/Vol] 8.5 mg/dL Normal 8.4-10.4 [facility] Comment on above: Performed By: #### B MP3 ####[facility] [employer] [place] [address] Glucose [Mass/Vol] 118 mg/dL High 70-100 [facility] Comment on above: Performed By: #### B MP3 ####[facility] [employer] [address] [place] [address] Anion gap [Moles/Vol] 9 mmol/L Normal 3-13 [facility] Comment on above: Performed By: #### B MP3 ####[facility] [employer] [address] [place] [address] CO2 [Moles/Vol] 23 mmol/L Normal 22-30 [facility] Comment on above: Performed By: #### B MP3 ####[facility] [employer] [address] [place] [address] Creatinine [Mass/Vol] 3.14 mg/dL High 0.52-1.25 [facility] Comment on above: Performed By: #### B MP3 ####[facility] [employer] [address] [place] [address] GFR/1.73 sq M.predicted among blacks MDRD (S/P/Bld) [Vol rate/Area] 18.6 mL/min/{1.73_m2} Abnormal >60 [facility] Comment on above: Performed By: #### B MP3 ####[facility] [employer] [id number] [place] [address] GFR/1.73 sq M.predicted among non-blacks MDRD (S/P/Bld) [Vol rate/Area] 16.1 mL/min/{1.73_m2} Abnormal >60 [facility] Comment on above: Result Comment: KDIG O guidelines provide the following GFR categories:Stage GFR(ml/min/1.73 m2) TermsG1 >=90 Normal or highG2 60-89 Mildly decreased*G3a 45-59 Mildly to moderately ixizvattfI8x 30-44 Moderately to severely decreasedG4 15-29 Severely decreasedG5 <15 Kidney failure*Relative to young adult level.In the absence of evidence of kidney damage, neither GFRcategory G1 nor G2 fulfill the criteria for CKD.The CKD-EPI equation is validated in individuals 18 yearsof age and older. Currently the best equation forestimating glomerular filtration rate (GFR) from serumcreatinine in children is the Bedside Arechiga equation.It is less accurate in patients with extremes of musclemass, restriction of dietary protein, ingestion of creatine,extra-renal metabolism of creatinine, or treatment withmedications that affect renal tubular creatinine secretion. Performed By: #### B MP3 ####[facility] [place], [place] Urea nitrogen [Mass/Vol] 56 mg/dL High 7-20 [facility] Comment on above: Performed By: #### B MP3 ####[facility] [place], [place] Chloride [Moles/Vol] 98 mmol/L Normal 98-107 [facility] Comment on above: Performed By: #### B MP3 ####[id number] [place], [place] Potassium [Moles/Vol] 4.5 mmol/L Normal 3.5-5.1 [facility] Comment on above: Performed By: #### B MP3 ####[address] [place], [place] Sodium [Moles/Vol] 130 mmol/L Low 135-145 [facility] Comment on above: Performed By: #### B MP3 ####[address] Basic Metabolic PanelOrdered By: Silver Nick on 06-28-2021 Anion gap [Moles/Vol] 9 mmol/L 3 - 13 mmol/L [facility] Work Phone: Calcium [Mass/Vol] 8.5 mg/dL 8.4 - 10. 4 mg/dL [facility] Work Phone: Chloride [Moles/Vol] 98 mmol/L 98 - 10 7 mmol/L [facility] Work Phone: CO2 [Moles/Vol] 23 mmol/L 22 - 30 mmol/L [facility] Work Phone: Creatinine [Mass/Vol] 3.14 mg/dL High 0.52 - 1.25 mg/dL [facility] Work Phone: EGFR IF NonAfrican [place]orese 16.1 mL/min Abnormal >60 [facility] Work Phone: [phone] GFR/1.73 sq M.predicted among blacks MDRD (S/P/Bld) [Vol rate/Area] 18.6 mL/min/{1.73_m2} Abnormal >60 [facility] Work Phone: [phone] Glucose [Mass/Vol] 118 mg/dL High 70 - 100 mg/dL [facility] Work Phone: [phone] Interpretation and review of laboratory results Abnormal [facility] Work Phone: [phone] Potassium [Moles/Vol] 4.5 mmol/L 3.5 - 5.1 mmol/L [facility] Work Phone: [phone] Sodium [Moles/Vol] 130 mmol/L Low 135 - 145 mmol/L [facility] Work Phone: [phone] Urea nitrogen (BldV) [Mass/Vol] 56 mg/dL High 7 - 20 mg/dL [facility] Work Phone: [phone] [facility] Work Phone: [phone] [facility] Work Phone: [phone] CBC auto differentialOrdered By: Michelle Petty on 06-28-2021 Hematocrit (Bld) [Volume fraction] 28.6 % Low 35.0 - 47.0 % [facility] Work Phone: [phone] Hemoglobin.gastrointes tinal spec 1 Ql (Stl) 9.2 g/dL Low 11.7 - 16.0 g/dL [facility] Work Phone: [phone] Interpretation and review of laboratory results Abnormal [facility] Work Phone: [phone] MCH (RBC) [Entitic mass] 23.8 pg Low 26.0 - 34.0 pg [facility] Work Phone: [phone] MCHC (RBC) [Mass/Vol] 32.1 % 32.0 - 36.0 % [facility] Work Phone: [phone] MCV (RBC) [Entitic vol] 74.2 fL Low 79.0 - 98.0 fL [facility] Work Phone: [phone] Platelet distribution width (Bld) [Ratio] 24.7 % High 11.5 - 14.5 % [facility] Work Phone: [phone] Platelet mean volume (Bld) [Entitic vol] 8.0 fL 7.4 - 10.4 fL [facility] Work Phone: [phone] Platelets (Bld) [#/Vol] 184 10*3/uL 140 - 440 10*3/uL [facility] Work Phone: [phone] RBC (Bld) [#/Vol] 3.86 10*6/uL 3.80 - 5.2 0 10*6/uL [facility] Work Phone: [phone] WBC (Bld) [#/Vol] 5.7 10*3/uL 3.6 - 10.7 10*3/uL [facility] Work Phone: [phone] [facility] Work Phone: [phone] [facility] Work Phone: [phone] CORTISOL TOTALOrdered By: Fr foreign Martínezti on 06-28-2021 Cortisol 10.0 ug/dL [facility] Work Phone: [phone] [facility] Work Phone: [phone] [facility] Work Phone: [phone] Cortisolon 06-28-2021 Cortisol 10.0 ug/dL Normal [facility] Comment on above: Result Comment: Befo re 10am 4.5-22.7 ug/dLAfter 5pm 1.7-14.1 ug/dL Performed By: #### C ORTL ####[employer] [place] [address] Glucose,Bedsideon 06-28-2021 Glucose [Mass/Vol] 171 mg/dL High 70-100 [facility] Comment on above: Result Comment: Test performed by glucose meter. Results may be 10%-15% lowerthan serum/plasma values. (CLIA ID [id number]) Performed By: #### B GLU ####[employer] [place] [address] Glucose [Mass/Vol] 165 mg/dL High 70-100 [facility] Comment on above: Result Comment: Test performed by glucose meter. Results may be 10%-15% lowerthan serum/plasma values. (CLIA ID [id number]) Performed By: #### B GLU ####[address] [place], [place] Glucose [Mass/Vol] 161 mg/dL High 70-100 [facility] Comment on above: Result Comment: Test performed by glucose meter. Results may be 10%-15% lowerthan serum/plasma values. (CLIA ID [id number]) Performed By: #### B GLU ####[address] [place], [place] Glucose [Mass/Vol] 129 mg/dL High 70-100 [facility] Comment on above: Result Comment: Test performed by glucose meter. Results may be 10%-15% lowerthan serum/plasma values. (CLIA ID [id number]) Performed By: #### B GLU ####[address] [place], [place] Hemogram w/ Autodiffon 06-28 Erythrocyte distribution width (RBC) [Ratio] 24.7 % High 11.5-14.5 [facility] Comment on above: Performed By: #### V TYLER CHEN, HEMDF, PHOS3, LFT3, MG3 ####[address] [place], [place] Hematocrit (Bld) [Volume fraction] 28.6 % Low 35.0-47.0 [facility] Comment on above: Performed By: #### V TYLER CHEN, HEMDF, PHOS3, LFT3, MG3 ####[address] [place], [place] Hemoglobin (Bld) [Mass/Vol] 9.2 g/dL Low 11.7-16.0 [facility] Comment on above: Performed By: #### V TYLER CHEN, HEMDF, PHOS3, LFT3, MG3 ####[address] [place], [place] MCH (RBC) [Entitic mass] 23.8 pg Low 26.0-34.0 [facility] Comment on above: Performed By: #### V ANL, MDIFF, HEMDF, PHOS3, LFT3, MG3 ####[address] [place] MCHC 32.1 % Normal 32.0-36.0 [facility] Comment on above: Performed By: #### V ANL, MDIFF, HEMDF, PHOS3, LFT3, MG3 ####[address] [place], [place] MCV (RBC) [Entitic vol] 74.2 fL Low 79.0-98.0 [facility] Comment on above: Performed By: #### V ANL, MDIFF, HEMDF, PHOS3, LFT3, MG3 ####[address] [place], [place] Platelet mean volume (Bld) [Entitic vol] 8.0 fL Normal 7.4-10.4 [facility] Comment on above: Performed By: #### V ANL, MDIFF, HEMDF, PHOS3, LFT3, MG3 ####[address] [place] Platelets (Bld) [#/Vol] 184 10*3/uL Normal 140-440 [facility] Comment on above: Performed By: #### V ANL, MDIFF, HEMDF, PHOS3, LFT3, MG3 ####[address] [place], [place] RBC (Bld) [#/Vol] 3.86 10*6/uL Normal 3.80-5.20 [facility] Comment on above: Performed By: #### V ANL, MDIFF, HEMDF, PHOS3, LFT3, MG3 ####[address] WBC (Bld) [#/Vol] 5.7 10*3/uL Normal 3.6-10.7 [facility] Comment on above: Performed By: #### V ANL, MDIFF, HEMDF, PHOS3, LFT3, MG3 ####[address] Hepatic Functionon 1 ALP [Catalytic activity/Vol] 91 U/L Normal 38-126 [facility] Comment on above: Performed By: #### V ANL, MDIFF, HEMDF, PHOS3, LFT3, MG3 ####[address] [place], [place] ALT [Catalytic activity/Vol] 35 U/L High 0-34 [facility] Comment on above: Result Comment: The ALT test is performed by an updated assay method.Please note that the reference intervals have beenchanged and are now sex specific. Performed By: #### V ANL, MDIFF, HEMDF, PHOS3, LFT3, MG3 ####[address] [place], [place] AST [Catalytic activity/Vol] 32 U/L Normal 15-46 [facility] Comment on above: Performed By: #### V ANL, MDIFF, HEMDF, PHOS3, LFT3, MG3 ####[address] [place], [place] Bilirubin [Mass/Vol] 0.4 mg/dL Normal 0.2-1.3 [facility] Comment on above: Performed By: #### V ANL, MDIFF, HEMDF, PHOS3, LFT3, MG3 ####[address] [place], [place] Bilirubin.indirect [Mass/Vol] 0.0 mg/dL Normal 0.0-0.3 [facility] Comment on above: Performed By: #### V ANL, MDIFF, HEMDF, PHOS3, LFT3, MG3 ####[address] [place], [place] Protein [Mass/Vol] 6.0 g/dL Low 6.3-8.2 [facility] Comment on above: Performed By: #### V ANL, MDIFF, HEMDF, PHOS3, LFT3, MG3 ####[address] [place] Albumin [Mass/Vol] 2.7 g/dL Low 3.5-5.0 [facility] Comment on above: Performed By: #### TYLER MONZON, HEMDF, PHOS3, LFT3, MG3 ####[employer] [place] [address] Hepatic Function PanelOrdere d By: Tello Sterling on 06-28-2021 Albumin [Mass/Vol] 2.7 g/dL Low 3.5 - 5.0 g/dL [facility] Work Phone: ALP (Bld) [Catalytic activity/Vol] 91 U/L 38 - 126 U/L [facility] Work Phone: ALT [Catalytic activity/Vol] 35 U/L High 0 - 34 U/L [facility] Work Phone: AST [Catalytic activity/Vol] 32 U/L 15 - 46 U/L [facility] Work Phone: Bilirubin [Mass/Vol] 0.4 mg/dL 0.2 - 1 .3 mg/dL [facility] Work Phone: Bilirubin.indirect [Mass/Vol] 0.0 mg/dL 0.0 - 0.3 mg/dL [facility] Work Phone: Free PSA/Total PSA [Mass fraction] 6.0 g/dL Low 6.3 - 8.2 g/dL [facility] Work Phone: Magnesiumon 06-28-2021 Magnesium [Mass/Vol] 2.0 mg/dL Normal 1.6-2.3 [facility] Comment on above: Performed By: #### TYLER MONZON, HEMDF, PHOS3, LFT3, MG3 ####[employer] [place] [address] MagnesiumOrdered By: Michelle lauren on 06-28-2021 Magnesium [Mass/Vol] 2.0 mg/dL 1.6 - 2 .3 mg/dL [facility] Work Phone: Manual Diffon 06-28-2021 Abs Eosin Cnt 0.2 10*3/uL Normal 0.0-0.5 [facility] Comment on above: Performed By: #### V ANL, MDIFF, HEMDF, PHOS3, LFT3, MG3 ####[address] [place], [place] Abs Lymph Cnt 0.4 10*3/uL Low 1.1-4.5 [facility] Comment on above: Performed By: #### V ANL, MDIFF, HEMDF, PHOS3, LFT3, MG3 ####[address] [place], [place] Abs Monocyte Cnt 0.2 10*3/uL Normal 0.2-1.1 [facility] Comment on above: Performed By: #### V ANL, MDIFF, HEMDF, PHOS3, LFT3, MG3 ####[address] Abs Neutrophile Cnt 4.6 10*3/uL Normal 2.2-8.2 [facility] Comment on above: Performed By: #### V ANL, MDIFF, HEMDF, PHOS3, LFT3, MG3 ####[address] Anisocytosis Slight Normal [facility] Comment on above: Performed By: #### V ANL, MDIFF, HEMDF, PHOS3, LFT3, MG3 ####[address] Bands 8 % High 0-3 [facility] Comment on above: Performed By: #### V ANL, MDIFF, HEMDF, PHOS3, LFT3, MG3 ####[address] [place], [place] Janette Cells Slight Normal [facility] Comment on above: Performed By: #### V ANL, MDIFF, HEMDF, PHOS3, LFT3, MG3 ####[address] [place], [place] Elliptocytes Slight Normal [facility] Comment on above: Performed By: #### V ANL, MDIFF, HEMDF, PHOS3, LFT3, MG3 ####[facility] [address] [place] [address] Eosinophils 4 % Normal 1-6 [facility] Comment on above: Performed By: #### V DWIGHTL, MDIFF, HEMDF, PHOS3, LFT3, MG3 ####[facility] [address] [place] [address] Lymphocytes 7 % Low 20-40 [facility] Comment on above: Performed By: #### V ANL, MDIFF, HEMDF, PHOS3, LFT3, MG3 ####[facility] [address] [place] [address] Metamyelocytes 3 % Abnormal <1 [facility] Comment on above: Performed By: #### V ANL, MDIFF, HEMDF, PHOS3, LFT3, MG3 ####[facility] [address] [place] Microcytosis Slight Normal [facility] Comment on above: Performed By: #### V GUSTAVO, MDIFF, HEMDF, PHOS3, LFT3, MG3 ####[facility] [address] [place] [address] Monocytes 4 % Normal 2-10 [facility] Comment on above: Performed By: #### V GUSTAVO, MDIFF, HEMDF, PHOS3, LFT3, MG3 ####[facility] [address] [place] [address] Myelocytes 1 % Abnormal <1 [facility] Comment on above: Performed By: #### V GUSTAVO, MDIFF, HEMDF, PHOS3, LFT3, MG3 ####[facility] [address] [place] [address] Ovalocytes Slight Normal [facility] Comment on above: Performed By: #### V ANL, MDIFF, HEMDF, PHOS3, LFT3, MG3 ####[facility] [address] [place] [address] Poikilocytosis Slight Normal [facility] Comment on above: Performed By: #### V ANL, MDIFF, HEMDF, PHOS3, LFT3, MG3 ####[facility] [address] [place], [place] RBC Morphology ABNORMAL Normal [facility] Comment on above: Performed By: #### V ANL, MDIFF, HEMDF, PHOS3, LFT3, MG3 ####[facility] [address] [place] Seg Neutrophils 73 % Normal 40-80 [facility] Comment on above: Performed By: #### V ANL, MDIFF, HEMDF, PHOS3, LFT3, MG3 ####[facility] [address] [place] Abs Baso Cnt 0.0 10*3/uL Normal 0.0-0.2 [facility] Comment on above: Performed By: #### V ANL, MDIFF, HEMDF, PHOS3, LFT3, MG3 ####[address] [place] Basophils 0 % Normal 0-2 [facility] Comment on above: Performed By: #### V ANL, MDIFF, HEMDF, PHOS3, LFT3, MG3 ####[facility] [employer] [address] [place], [place] Cells counted 100 Normal [facility] Comment on above: Performed By: #### V ANL, MDIFF, HEMDF, PHOS3, LFT3, MG3 ####[address] [place] Manual DifferentialOrdered B y: Michelle Petty on 06-28-2021 Absolute Baso # 0.0 10*3/uL 0.0 - 0.2 10*3/uL [facility] Work Phone: Absolute Eos # 0.2 10*3/uL 0.0 - 0.5 10*3/uL [facility] Work [facility]: Absolute Lymph # 0.4 10*3/uL Low 1.1 - 4.5 10*3/uL [facility] Work Phone: Absolute [place] # 0.2 10*3/uL 0.2 - 1.1 10*3/uL [facility] Work Phone: [phone] Absolute Neut # 4.6 10*3/uL 2.2 - 8.2 10*3/uL [facility] Work Phone: [phone] Anisocytosis Slight [facility] Work Phone: [phone] Bands 8 % High 0 - 3 % [facility] Work Phone: [phone] Basophils/100 WBC (Bld) 0 % 0 - 2 % [facility] Work Phone: [phone] [place] Cells Slight [facility] Work Phone: [phone] Elliptocytes Slight [facility] Work Phone: [phone] Eosinophils/100 WBC (Bld) 4 % 1 - 6 % [facility] Work Phone: [phone] Interpretation and review of laboratory results Abnormal [facility] Work Phone: [phone] Lymphocytes/100 WBC (Bld) 7 % Low 20 - 40 % [facility] Work Phone: [phone] Metamyelocytes 3 % Abnormal <1 [facility] Work Phone: [phone] Microcytosis Slight [facility] Work Phone: [phone] Monocytes/100 WBC (Bld) 4 % 2 - 10 % [facility] Work Phone: [phone] Myelocytes 1 % Abnormal <1 [facility] Work Phone: [phone] Ovalocytes Slight [facility] Work Phone: [phone] Poikilocytes Slight [facility] Work Phone: [phone] RBC (Bld) [#/Vol] ABNORMAL [facility] Work Phone: [phone] Seg Neutrophils 73 % 40 - 80 % [facility] Work Phone: [phone] TOTAL CELLS COUNTED 100 [facility] Work Phone: [phone] [facility] Work Phone: [phone] [facility] Work Phone: [phone] No Panel InformationOrdered By: Michelle Petty on 06-28-2021 Interpretation and review of laboratory results Abnormal [facility] Work Phone: [phone] [facility] Work Phone: [phone] [facility] Work Phone: OsmolalityOrdered By: April Araujo on 06-28-2021 Serum Osmolality 293 mosm/kg 280 - 300 mosm/kg [facility] Work Phone: [phone] [facility] Work Phone: [phone] [facility] Work Phone: [phone] Osmolality,Serumon Osmolality,Serum 293 mosm/kg Normal 280-300 [facility] Comment on above: Performed By: #### O ####[facility] [address] [place] [address] POCT GlucoseOrdered By: Jessica Soni on 06-28-2021 Glucose [Mass/Vol] 171 mg/dL High 70 - 100 mg/dL [facility] Work Phone: [phone] Interpretation and review of laboratory results Abnormal [facility] Work Phone: [phone] [facility] Work Phone: [phone] [facility] Work Phone: [phone] Glucose [Mass/Vol] 161 mg/dL High 70 - 100 mg/dL [facility] Work Phone: [phone] Interpretation and review of laboratory results Abnormal [facility] Work Phone: [phone] [facility] Work Phone: [phone] [facility] Work Phone: [phone] Glucose [Mass/Vol] 129 mg/dL High 70 - 100 mg/dL [facility] Work Phone: [phone] Interpretation and review of laboratory results Abnormal [facility] Work Phone: [phone] [facility] Work Phone: [phone] [facility] Work Phone: [phone] POCT GlucoseOrdered By: Gennaro Parsnos on 06-28-2021 Glucose [Mass/Vol] 165 mg/dL High 70 - 100 mg/dL [facility] Work Phone: [phone] Interpretation and review of laboratory results Abnormal [facility] Work Phone: [phone] [facility] Work Phone: [phone] [facility] Work Phone: Phosphoruson 06-28-2021 Phosphate [Mass/Vol] 5.7 mg/dL High 2.5-4.5 [facility] Comment on above: Performed By: #### V TYLER CHEN, HEMDF, PHOS3, LFT3, MG3 ####[facility] [id number] [place], [place] PhosphorusOrdered By: Michelle pearson on 06-28-2021 Phosphate [Mass/Vol] 5.7 mg/dL High 2.5 - 4 .5 mg/dL [facility]: Vancomycinon 06-28-2021 Vancomycin 42.5 ug/mL High 15.0-20.0 [facility] Comment on above: Result Comment: . Performed By: #### V TYLER CHEN, HEMDF, PHOS3, LFT3, MG3 ####[id number] [place], [place] Vancomycin, RandomOrdered By : Tawanna Sifuentes on 06-28-2021 Interpretation and review of laboratory results Abnormal [facility] Work Phone: Vancomycin 42.5 ug/mL High 15.0 - 20.0 ug/mL [facility] Work Phone: [facility] Work Phone: [facility] Work Phone: Add On Lab TestOrdered By: Jarod Sifuentes on 06-27-2021 Add On Accepted [facility] Work Phone: [facility] Work Phone: [facility] Work Phone: Add On Lab TestOrdered By: April Sterling on 06-27-2021 Add On Rejected [facility] Work Phone: Add on test from HISon 06-27 Add on test from HIS Accepted Normal [facility] Comment on above: Result Comment: Spec imen available & acceptable for analysis. Performed By: #### A DDON ####[id number] [place], [place] Add on test from HIS Rejected Normal [facility] Comment on above: Result Comment: No s pecimen available for addon. Performed By: #### A DDON ####[id number] [facility] [place] [address] Basic Metabolic Panelon 07-2 Anion gap [Moles/Vol] 7 mmol/L Normal 3-13 [facility] Comment on above: Performed By: #### V ANL, BMP3 ####[facility] [facility] [place] [address] Calcium [Mass/Vol] 8.5 mg/dL Normal 8.4-10.4 [facility] Comment on above: Performed By: #### V ANL, BMP3 ####[id number] [facility] [place] [address] CO2 [Moles/Vol] 25 mmol/L Normal 22-30 [facility] Comment on above: Performed By: #### V ANL, BMP3 ####[address] [place] [address] Glucose [Mass/Vol] 131 mg/dL High 70-100 [facility] Comment on above: Performed By: #### V ANL, BMP3 ####[address] [place] [address] Urea nitrogen [Mass/Vol] 52 mg/dL High 7-20 [facility] Comment on above: Performed By: #### V ANL, BMP3 ####[address] [place] [address] Creatinine [Mass/Vol] 3.08 mg/dL High 0.52-1.25 [facility] Comment on above: Performed By: #### V ANL, BMP3 ####[id number] [facility] [place] [address] GFR/1.73 sq M.predicted among blacks MDRD (S/P/Bld) [Vol rate/Area] 19.1 mL/min/{1.73_m2} Abnormal >60 [facility] Comment on above: Performed By: #### V ANL, BMP3 ####[id number] [facility] [place] [address] GFR/1.73 sq M.predicted among non-blacks MDRD (S/P/Bld) [Vol rate/Area] 16.5 mL/min/{1.73_m2} Abnormal >60 [facility] Comment on above: Result Comment: KDIG O guidelines provide the following GFR categories:Stage GFR(ml/min/1.73 m2) TermsG1 >=90 Normal or highG2 60-89 Mildly decreased*G3a 45-59 Mildly to moderately agqfjrufjF6n 30-44 Moderately to severely decreasedG4 15-29 Severely decreasedG5 <15 Kidney failure*Relative to young adult level.In the absence of evidence of kidney damage, neither GFRcategory G1 nor G2 fulfill the criteria for CKD.The CKD-EPI equation is validated in individuals 18 yearsof age and older. Currently the best equation forestimating glomerular filtration rate (GFR) from serumcreatinine in children is the Bedside Arechiga equation.It is less accurate in patients with extremes of musclemass, restriction of dietary protein, ingestion of creatine,extra-renal metabolism of creatinine, or treatment withmedications that affect renal tubular creatinine secretion. Performed By: #### [place] CHEN BMP3 ####[address] [place], [place] Potassium [Moles/Vol] 4.4 mmol/L Normal 3.5-5.1 [facility] Comment on above: Performed By: #### [place] CHEN BMP3 ####[address] [place], [place] Chloride [Moles/Vol] 94 mmol/L Low 98-107 [facility] Comment on above: Performed By: #### V GUSTAVO BMP3 ####[address] [place], [place] Sodium [Moles/Vol] 126 mmol/L Low 135-145 [facility] Comment on above: Performed By: #### V DWIGHTL BMP3 ####[address] [place], [place] Calcium [Mass/Vol] 8.3 mg/dL Low 8.4-10.4 [facility] Comment on above: Performed By: #### B MP3 ####[address], [place] Glucose [Mass/Vol] 122 mg/dL High 70-100 [facility] Comment on above: Performed By: #### B MP3 ####[address] [place], [place] Urea nitrogen [Mass/Vol] 50 mg/dL High 7-20 [facility] Comment on above: Performed By: #### B MP3 ####[address] [place], [place] Anion gap [Moles/Vol] 9 mmol/L Normal 3-13 [facility] Comment on above: Performed By: #### B MP3 ####[address] [place], [place] CO2 [Moles/Vol] 21 mmol/L Low 22-30 [facility] Comment on above: Performed By: #### B MP3 ####[address] [place], [place] Creatinine [Mass/Vol] 3.03 mg/dL High 0.52-1.25 [facility] Comment on above: Performed By: #### B MP3 ####[address] [place], [place] GFR/1.73 sq M.predicted among blacks MDRD (S/P/Bld) [Vol rate/Area] 19.4 mL/min/{1.73_m2} Abnormal >60 [facility] Comment on above: Performed By: #### B MP3 ####[address] [place] GFR/1.73 sq M.predicted among non-blacks MDRD (S/P/Bld) [Vol rate/Area] 16.8 mL/min/{1.73_m2} Abnormal >60 [facility] Comment on above: Result Comment: KDIG O guidelines provide the following GFR categories:Stage GFR(ml/min/1.73 m2) TermsG1 >=90 Normal or highG2 60-89 Mildly decreased*G3a 45-59 Mildly to moderately eyzkzfkdlV2a 30-44 Moderately to severely decreasedG4 15-29 Severely decreasedG5 <15 Kidney failure*Relative to young adult level.In the absence of evidence of kidney damage, neither GFRcategory G1 nor G2 fulfill the criteria for CKD.The CKD-EPI equation is validated in individuals 18 yearsof age and older. Currently the best equation forestimating glomerular filtration rate (GFR) from serumcreatinine in children is the Bedside Arechiga equation.It is less accurate in patients with extremes of musclemass, restriction of dietary protein, ingestion of creatine,extra-renal metabolism of creatinine, or treatment withmedications that affect renal tubular creatinine secretion. Performed By: #### B MP3 ####[address] [place] Calcium [Mass/Vol] 8.2 mg/dL Low 8.4-10.4 [facility] Comment on above: Performed By: #### C HUNG BMP3 ####[address] [place] Anion gap [Moles/Vol] 7 mmol/L Normal 3-13 [facility] Comment on above: Performed By: #### C ORJULY BMP3 ####[facility] [address] [address] [place], [place] CO2 [Moles/Vol] 23 mmol/L Normal 22-30 [facility] Comment on above: Performed By: #### Jennifer ORJULY, BMP3 ####[facility] [address] [place], [place] Creatinine [Mass/Vol] 3.20 mg/dL High 0.52-1.25 [facility] Comment on above: Performed By: #### C ORJULY BMP3 ####[address] [place] GFR/1.73 sq M.predicted among blacks MDRD (S/P/Bld) [Vol rate/Area] 18.2 mL/min/{1.73_m2} Abnormal >60 [facility] Comment on above: Performed By: #### Jennifer ORJULY, BMP3 ####[address] [place] [address] GFR/1.73 sq M.predicted among non-blacks MDRD (S/P/Bld) [Vol rate/Area] 15.7 mL/min/{1.73_m2} Abnormal >60 [facility] Comment on above: Result Comment: KDIG O guidelines provide the following GFR categories:Stage GFR(ml/min/1.73 m2) TermsG1 >=90 Normal or highG2 60-89 Mildly decreased*G3a 45-59 Mildly to moderately gfbniblioY8m 30-44 Moderately to severely decreasedG4 15-29 Severely decreasedG5 <15 Kidney failure*Relative to young adult level.In the absence of evidence of kidney damage, neither GFRcategory G1 nor G2 fulfill the criteria for CKD.The CKD-EPI equation is validated in individuals 18 yearsof age and older. Currently the best equation forestimating glomerular filtration rate (GFR) from serumcreatinine in children is the Bedside Arechiga equation.It is less accurate in patients with extremes of musclemass, restriction of dietary protein, ingestion of creatine,extra-renal metabolism of creatinine, or treatment withmedications that affect renal tubular creatinine secretion. Performed By: #### C HUNG BMP3 ####[address] [place], [place] Glucose [Mass/Vol] 124 mg/dL High 70-100 [facility] Comment on above: Performed By: #### Jennifer PERSAUD BMP3 ####[address] [place], [place] Urea nitrogen [Mass/Vol] 49 mg/dL High 7-20 [facility] Comment on above: Performed By: #### C HUNG BMP3 ####[address] [place], [place] Chloride [Moles/Vol] 96 mmol/L Low 98-107 [facility] Comment on above: Performed By: #### B MP3 ####[address] [place], [place] Potassium [Moles/Vol] 4.6 mmol/L Normal 3.5-5.1 [facility] Comment on above: Performed By: #### B MP3 ####[address] [place], [place] Sodium [Moles/Vol] 126 mmol/L Low 135-145 [facility] Comment on above: Performed By: #### B MP3 ####[facility] [address] [place], [place] Chloride [Moles/Vol] 96 mmol/L Low 98-107 [facility] Comment on above: Performed By: #### C HUNG, BMP3 ####[facility] [address] [place], [place] Potassium [Moles/Vol] 4.5 mmol/L Normal 3.5-5.1 [facility] Comment on above: Performed By: #### C HUNG BMP3 ####[facility] [place], [place] Sodium [Moles/Vol] 126 mmol/L Low 135-145 [facility] Comment on above: Performed By: #### Jennifer PERSAUD, BMP3 ####[facility] [place], [place] Basic Metabolic PanelOrdered By: Silver Nick on 06-27-2021 Anion gap [Moles/Vol] 7 mmol/L 3 - 13 mmol/L [facility] Work Phone: Calcium [Mass/Vol] 8.5 mg/dL 8.4 - 10. 4 mg/dL [facility] Work Phone: Chloride [Moles/Vol] 94 mmol/L Low 98 - 10 7 mmol/L [facility] Work Phone: CO2 [Moles/Vol] 25 mmol/L 22 - 30 mmol/L [facility] Work Phone: Creatinine [Mass/Vol] 3.08 mg/dL High 0.52 - 1.25 mg/dL [facility] Work Phone: EGFR IF NonAfrican [place] 16.5 mL/min Abnormal >60 [facility] Work Phone: GFR/1.73 sq M.predicted among blacks MDRD (S/P/Bld) [Vol rate/Area] 19.1 mL/min/{1.73_m2} Abnormal >60 [facility] Work Phone: [phone] Glucose [Mass/Vol] 131 mg/dL High 70 - 100 mg/dL [facility] Work Phone: [phone] Interpretation and review of laboratory results Abnormal [facility] Work Phone: [phone] Potassium [Moles/Vol] 4.4 mmol/L 3.5 - 5.1 mmol/L [facility] Work Phone: [phone] Sodium [Moles/Vol] 126 mmol/L Low 135 - 145 mmol/L [facility] Work Phone: [phone] Urea nitrogen (BldV) [Mass/Vol] 52 mg/dL High 7 - 20 mg/dL [facility] Work Phone: [phone] [facility] Work Phone: [phone] [facility] Work Phone: [phone] Basic Metabolic PanelOrdered By: Shashank Sellers on 06-27-2021 Anion gap [Moles/Vol] 9 mmol/L 3 - 13 mmol/L [facility] Work Phone: [phone] Anion gap [Moles/Vol] 7 mmol/L 3 - 13 mmol/L [facility] Work Phone: [phone] Calcium [Mass/Vol] 8.3 mg/dL Low 8.4 - 10. 4 mg/dL [facility] Work Phone: [phone] Calcium [Mass/Vol] 8.2 mg/dL Low 8.4 - 10. 4 mg/dL [facility] Work Phone: [phone] CO2 [Moles/Vol] 21 mmol/L Low 22 - 30 mmol/L [facility] Work Phone: [phone] CO2 [Moles/Vol] 23 mmol/L 22 - 30 mmol/L [facility] Work Phone: [phone] Creatinine [Mass/Vol] 3.03 mg/dL High 0.52 - 1.25 mg/dL [facility] Work Phone: [phone] Creatinine [Mass/Vol] 3.2 mg/dL High 0.52 - 1.25 mg/dL [facility] Work Phone: [phone] EGFR IF NonAfrican [place] 16.8 mL/min Abnormal >60 [facility] Work Phone: EGFR IF NonAfrican [place] 15.7 mL/min Abnormal >60 [facility] Work Phone: [phone] GFR/1.73 sq M.predicted among blacks MDRD (S/P/Bld) [Vol rate/Area] 19.4 mL/min/{1.73_m2} Abnormal >60 [facility] Work Phone: [phone] GFR/1.73 sq M.predicted among blacks MDRD (S/P/Bld) [Vol rate/Area] 18.2 mL/min/{1.73_m2} Abnormal >60 [facility] Work Phone: [phone] Glucose [Mass/Vol] 122 mg/dL High 70 - 100 mg/dL [facility] Work Phone: Glucose [Mass/Vol] 124 mg/dL High 70 - 100 mg/dL [facility] Work Phone: [phone] Potassium [Moles/Vol] 4.6 mmol/L 3.5 - 5.1 mmol/L [facility] Work Phone: [phone] Potassium [Moles/Vol] 4.5 mmol/L 3.5 - 5.1 mmol/L [facility] Work Phone: [phone] Urea nitrogen (BldV) [Mass/Vol] 50 mg/dL High 7 - 20 mg/dL [facility] Work Phone: Urea nitrogen (BldV) [Mass/Vol] 49 mg/dL High 7 - 20 mg/dL [facility] Work [phone] CBC auto differentialOrdered By: Michelle Petty on 06-27-2021 Absolute Baso # 0.0 10*3/uL 0.0 - 0.2 10*3/uL [facility] Work Phone: [phone] Absolute Eos # 0.4 10*3/uL 0.0 - 0.5 10*3/uL [facility] Work Phone: [phone] Absolute Lymph # 0.7 10*3/uL Low 1.0 - 4.3 10*3/uL [facility] Work Phone: [phone] Absolute [place] # 0.7 10*3/uL 0.0 - 0.8 10*3/uL [facility] Work Phone: [phone] Absolute Neut # 4.3 10*3/uL 1.8 - 7.0 10*3/uL [facility] Work Phone: [phone] Basophils/100 WBC (Bld) 0.7 % 0.0 - 2.0 % [facility] Work Phone: 1 Eosinophils/100 WBC (Bld) 6.6 % High 1.0 - 6.0 % [facility] Work Phone: [phone] Granulocytes/100 WBC (Bld) 69.9 % 40.0 - 80.0 % [facility] Work Phone: [phone] Hematocrit (Bld) [Volume fraction] 28.3 % Low 35.0 - 47.0 % [facility] Work Phone: [phone] Hemoglobin.gastrointes tinal spec 1 Ql (Stl) 9.1 g/dL Low 11.7 - 16.0 g/dL [facility] Work Phone: Interpretation and review of laboratory results Abnormal [facility] Work Phone: Lymphocytes/100 WBC (Bld) 11.2 % Low 20.0 - 40.0 % [facility] Work Phone: [phone] MCH (RBC) [Entitic mass] 24.2 pg Low 26.0 - 34.0 pg [facility] Work Phone: [phone] MCHC (RBC) [Mass/Vol] 32.2 % 32.0 - 36.0 % [facility] Work Phone: MCV (RBC) [Entitic vol] 75.2 fL Low 79.0 - 98.0 fL [facility] Work Phone: [phone] Monocytes/100 WBC (Bld) 11.6 % High 2.0 - 10.0 % [facility] Work Phone: [phone] Platelet distribution width (Bld) [Ratio] 24.1 % High 11.5 - 14.5 % [facility] Work Phone: [phone] Platelet mean volume (Bld) [Entitic vol] 8.1 fL 7.4 - 10.4 fL [facility] Work Phone: Platelets (Bld) [#/Vol] 168 10*3/uL 140 - 440 10*3/uL [facility] Work Phone: [phone] RBC (Bld) [#/Vol] 3.76 10*6/uL Low 3.80 - 5.2 0 10*6/uL [facility] Work Phone: [phone] WBC (Bld) [#/Vol] 6.1 10*3/uL 3.6 - 10.7 10*3/uL [facility] Work Phone: [phone] [facility] Work Phone: [phone] [facility] Work Phone: [phone] CORTISOL TOTALOrdered By: Devan Sterling on 06-27-2021 Cortisol 5.9 ug/dL [facility]: [phone] [facility] Work Phone: [phone] [facility] Work Phone: [phone] CR Chest Portableon 06-27-20 21 CR Chest Portable Normal [facility] Cortisolon 06-27-2021 Cortisol 5.9 ug/dL Normal [facility] Comment on above: Result Comment: Befo re 10am 4.5-22.7 ug/dLAfter 5pm 1.7-14.1 ug/dL Performed By: #### C ORTL, BMP3 ####[address] [place] [address] EKG 12 LeadOrdered By: Kathy Sterling on 06-27-2021 [facility] Work Phone: [phone] [facility] Work Phone: [phone] [facility] Work Phone: [phone] Glucose,Bedsideon 06-27-2021 Glucose [Mass/Vol] 174 mg/dL High 70-100 [facility] Comment on above: Result Comment: Test performed by glucose meter. Results may be 10%-15% lowerthan serum/plasma values. (CLIA ID [id number]) Performed By: #### B GLU ####[address] [place] [address] Glucose [Mass/Vol] 145 mg/dL High 70-100 [facility] Comment on above: Result Comment: Test performed by glucose meter. Results may be 10%-15% lowerthan serum/plasma values. (CLIA ID [id number]) Performed By: #### B GLU ####[address] Glucose [Mass/Vol] 114 mg/dL High 70-100 [facility] Comment on above: Result Comment: Test performed by glucose meter. Results may be 10%-15% lowerthan serum/plasma values. (CLIA ID [id number]) Performed By: #### B GLU ####[address] Hemogram w/ Autodiffon 06-27 Abs Baso Cnt 0.0 10*3/uL Normal 0.0-0.2 [facility] Comment on above: Performed By: #### P HOS3, OSM, MG3, HEMDF ####[address] Abs Neutrophile Cnt 4.3 10*3/uL Normal 1.8-7.0 [facility] Comment on above: Performed By: #### P HOS3, OSM, MG3, HEMDF ####[address] Basophils/100 WBC (Bld) 0.7 % Normal 0.0-2.0 [facility] Comment on above: Performed By: #### P HOS3, OSM, MG3, HEMDF ####[address] Eosinophils (Bld) [#/Vol] 0.4 10*3/uL Normal 0.0-0.5 [facility] Comment on above: Performed By: #### P HOS3, OSM, MG3, HEMDF ####[address] Eosinophils/100 WBC (Bld) 6.6 % High 1.0-6.0 [facility] Comment on above: Performed By: #### P HOS3, OSM, MG3, HEMDF ####[address] Erythrocyte distribution width (RBC) [Ratio] 24.1 % High 11.5-14.5 [facility] Comment on above: Performed By: #### P HOS3, OSM, MG3, HEMDF ####[address] Granulocytes/100 WBC (Bld) 69.9 % Normal 40.0-80.0 [facility] Comment on above: Performed By: #### P HOS3, OSM, MG3, HEMDF ####[address] Hematocrit (Bld) [Volume fraction] 28.3 % Low 35.0-47.0 [facility] Comment on above: Performed By: #### P HOS3, OSM, MG3, HEMDF ####[address] Hemoglobin (Bld) [Mass/Vol] 9.1 g/dL Low 11.7-16.0 [facility] Comment on above: Performed By: #### P HOS3, OSM, MG3, HEMDF ####[address] Lymphocytes (Bld) [#/Vol] 0.7 10*3/uL Low 1.0-4.3 [facility] Comment on above: Performed By: #### P HOS3, OSM, MG3, HEMDF ####[address] Lymphocytes/100 WBC (Bld) 11.2 % Low 20.0-40.0 [facility] Comment on above: Performed By: #### P HOS3, OSM, MG3, HEMDF ####[address] MCH (RBC) [Entitic mass] 24.2 pg Low 26.0-34.0 [facility] Comment on above: Performed By: #### P HOS3, OSM, MG3, HEMDF ####[address] MCHC 32.2 % Normal 32.0-36.0 [facility] Comment on above: Performed By: #### P HOS3, OSM, MG3, HEMDF ####[address] MCV (RBC) [Entitic vol] 75.2 fL Low 79.0-98.0 [facility] Comment on above: Performed By: #### P HOS3, OSM, MG3, HEMDF ####[address] Monocytes (Bld) [#/Vol] 0.7 10*3/uL Normal 0.0-0.8 [facility] Comment on above: Performed By: #### P HOS3, OSM, MG3, HEMDF ####[address] Monocytes/100 WBC (Bld) 11.6 % High 2.0-10.0 [facility] Comment on above: Performed By: #### P HOS3, OSM, MG3, HEMDF ####[address] Platelet mean volume (Bld) [Entitic vol] 8.1 fL Normal 7.4-10.4 [facility] Comment on above: Performed By: #### P HOS3, OSM, MG3, HEMDF ####[address] Platelets (Bld) [#/Vol] 168 10*3/uL Normal 140-440 [facility] Comment on above: Performed By: #### P HOS3, OSM, MG3, HEMDF ####[address] RBC (Bld) [#/Vol] 3.76 10*6/uL Low 3.80-5.20 [facility] Comment on above: Performed By: #### P HOS3, OSM, MG3, HEMDF ####[address] [place] [address] WBC (Bld) [#/Vol] 6.1 10*3/uL Normal 3.6-10.7 [facility] Comment on above: Performed By: #### P HOS3, OSM, MG3, HEMDF ####[id number] [place] [address] Laboratory - Chemistry and C hemistry - challengeOrdered By: Shashank Sellers on 06-27-2021 Chloride [Moles/Vol] 96 mmol/L Low 98 - 10 7 mmol/L [facility] Work Phone: [phone] Sodium [Moles/Vol] 126 mmol/L Low 135 - 145 mmol/L [facility] Work Phone: [phone] Magnesiumon 06-27-2021 Magnesium [Mass/Vol] 2.0 mg/dL Normal 1.6-2.3 [facility] Comment on above: Performed By: #### P HOS3, OSM, MG3, HEMDF ####[id number] [place] [address] MagnesiumOrdered By: Michelle lauren on 06-27-2021 Magnesium [Mass/Vol] 2.0 mg/dL 1.6 - 2 .3 mg/dL [facility] Work Phone: [phone] Panel InformationOrdered By: Lindsey Joyce on 06-27-2021 [facility] Work Phone: [phone] [facility] Work Phone: [phone] No Panel InformationOrdered By: Shashank Sellers on 06-27-2021 Interpretation and review of laboratory results Abnormal [facility] Work Phone: [phone] [facility] Work Phone: [phone] [facility] Work Phone: [phone] Panel InformationOrdered By: Michelle Petty on 06-27-2021 [facility] Work Phone: [phone] [facility] Work Phone: [phone] OsmolalityOrdered By: Lindsey Joyce on 06-27-2021 Serum Osmolality 282 mosm/kg 280 - 300 mosm/kg [facility] Work Phone: Osmolality,Serumon Osmolality,Serum 282 mosm/kg Normal 280-300 [facility] Comment on above: Performed By: #### P HOS3, OSM, MG3, HEMDF ####[address] [place] [address] POCT GlucoseOrdered By: Jessica Soni on 06-27-2021 Glucose [Mass/Vol] 174 mg/dL High 70 - 100 mg/dL [facility] Work Phone: Interpretation and review of laboratory results Abnormal [facility] Work Phone: [phone] [facility] Work Phone: [phone] [facility] Work Phone: [phone] POCT GlucoseOrdered By: Gennaro Parsons on 06-27-2021 Glucose [Mass/Vol] 145 mg/dL High 70 - 100 mg/dL [facility] Work Phone: Interpretation and review of laboratory results Abnormal [facility] Work Phone: [phone] [facility] Work Phone: [phone] [facility] Work Phone: Glucose [Mass/Vol] 114 mg/dL High 70 - 100 mg/dL [facility] Work Phone: Interpretation and review of laboratory results Abnormal [facility] Work Phone: [facility] Work Phone: [facility] Work Phone: Phosphoruson 06-27-2021 Phosphate [Mass/Vol] 4.8 mg/dL High 2.5-4.5 [facility] Comment on above: Performed By: #### P HOS3, OSM, MG3, HEMDF ####[id number] [place] [address] PhosphorusOrdered By: Michelle pearson on 06-27-2021 Interpretation and review of laboratory results Abnormal [facility] Work Phone: Phosphate [Mass/Vol] 4.8 mg/dL High 2.5 - 4 .5 mg/dL [facility] Work Phone: Vancomycinon 06-27-2021 Vancomycin 52.2 ug/mL High 15.0-20.0 [facility] Comment on above: Result Comment: . Performed By: #### V ANL, BMP3 ####[facility] [place], [place] Vancomycin, RandomOrdered By : Silver Nick on 06-27-2021 Interpretation and review of laboratory results Abnormal [facility] Work Phone: Vancomycin 52.2 ug/mL High 15.0 - 20.0 ug/mL [facility] Work Phone: [phone] [facility] Work Phone: [phone] [facility] Work Phone: [phone] XR CHEST PORTABLEOrdered By: Zack Barakat on 06-27-2021 [facility] Work Phone: [phone] [facility] Work Phone: [phone] [facility] Work Phone: [phone] Add On Lab TestOrdered By: Agusto Kirk on 06-26-2021 Add On Accepted [facility] Work Phone: [phone] [facility] Work Phone: [phone] [facility] Work Phone: [phone] Add on test from HISon 06-26 Add on test from HIS Accepted Normal [facility] Comment on above: Result Comment: Spec imen available & acceptable for analysis. Performed By: #### A DDON ####[id number] [place], [place] Basic Metabolic Panelon 05-31 Anion gap [Moles/Vol] 7 mmol/L Normal 3-13 [facility] Comment on above: Performed By: #### U RIC3, BMP3, PCAL ####[facility] [place], [place] Calcium [Mass/Vol] 8.4 mg/dL Normal 8.4-10.4 [facility] Comment on above: Performed By: #### U RIC3, BMP3, PCAL ####[facility] [place], [place] CO2 [Moles/Vol] 25 mmol/L Normal 22-30 [facility] Comment on above: Performed By: #### U RIC3, BMP3, PCAL ####[facility] [facility] [employer] [address] [place], [place] Glucose [Mass/Vol] 120 mg/dL High 70-100 [facility] Comment on above: Performed By: #### U RIC3, BMP3, PCAL ####[id number] [place], [place] Urea nitrogen [Mass/Vol] 44 mg/dL High 7-20 [facility] Comment on above: Performed By: #### U RIC3, BMP3, PCAL ####[facility] [address] [place], [place] Creatinine [Mass/Vol] 2.69 mg/dL High 0.52-1.25 [facility] Comment on above: Performed By: #### U RIC3, BMP3, PCAL ####[facility] [address] [place], [place] GFR/1.73 sq M.predicted among blacks MDRD (S/P/Bld) [Vol rate/Area] 22.5 mL/min/{1.73_m2} Abnormal >60 [facility] Comment on above: Performed By: #### U RIC3, BMP3, PCAL ####[facility] [address] [place], [place] GFR/1.73 sq M.predicted among non-blacks MDRD (S/P/Bld) [Vol rate/Area] 19.4 mL/min/{1.73_m2} Abnormal >60 [facility] Comment on above: Result Comment: KDIG O guidelines provide the following GFR categories:Stage GFR(ml/min/1.73 m2) TermsG1 >=90 Normal or highG2 60-89 Mildly decreased*G3a 45-59 Mildly to moderately qopbzfumwY3e 30-44 Moderately to severely decreasedG4 15-29 Severely decreasedG5 <15 Kidney failure*Relative to young adult level.In the absence of evidence of kidney damage, neither GFRcategory G1 nor G2 fulfill the criteria for CKD.The CKD-EPI equation is validated in individuals 18 yearsof age and older. Currently the best equation forestimating glomerular filtration rate (GFR) from serumcreatinine in children is the Bedside Arechiga equation.It is less accurate in patients with extremes of musclemass, restriction of dietary protein, ingestion of creatine,extra-renal metabolism of creatinine, or treatment withmedications that affect renal tubular creatinine secretion. Performed By: #### U RIC3, BMP3, PCAL ####[id number] [facility] [place] Potassium [Moles/Vol] 4.1 mmol/L Normal 3.5-5.1 [facility] Comment on above: Performed By: #### U RIC3, BMP3, PCAL ####[address] [place], [place] Sodium [Moles/Vol] 127 mmol/L Low 135-145 [facility] Comment on above: Performed By: #### U RIC3, BMP3, PCAL ####[address] [place], [place] Chloride [Moles/Vol] 95 mmol/L Low 98-107 [facility] Comment on above: Performed By: #### U RIC3, BMP3, PCAL ####[address] [facility] [place] Anion gap [Moles/Vol] 8 mmol/L Normal 3-13 [facility] Comment on above: Performed By: #### B MP3 ####[id number] [place], [place] Calcium [Mass/Vol] 8.2 mg/dL Low 8.4-10.4 [facility] Comment on above: Performed By: #### B MP3 ####[facility] [address] [facility] [place] CO2 [Moles/Vol] 22 mmol/L Normal 22-30 [facility] Comment on above: Performed By: #### B MP3 ####[id number] [facility] [place] Creatinine [Mass/Vol] 2.46 mg/dL High 0.52-1.25 [facility] Comment on above: Performed By: #### B MP3 ####[facility] [address] [place] [address] GFR/1.73 sq M.predicted among blacks MDRD (S/P/Bld) [Vol rate/Area] 25.0 mL/min/{1.73_m2} Abnormal >60 [facility] Comment on above: Performed By: #### B MP3 ####[facility] [address] [place] [address] GFR/1.73 sq M.predicted among non-blacks MDRD (S/P/Bld) [Vol rate/Area] 21.6 mL/min/{1.73_m2} Abnormal >60 [facility] Comment on above: Result Comment: KDIG O guidelines provide the following GFR categories:Stage GFR(ml/min/1.73 m2) TermsG1 >=90 Normal or highG2 60-89 Mildly decreased*G3a 45-59 Mildly to moderately madedgjkoQ0n 30-44 Moderately to severely decreasedG4 15-29 Severely decreasedG5 <15 Kidney failure*Relative to young adult level.In the absence of evidence of kidney damage, neither GFRcategory G1 nor G2 fulfill the criteria for CKD.The CKD-EPI equation is validated in individuals 18 yearsof age and older. Currently the best equation forestimating glomerular filtration rate (GFR) from serumcreatinine in children is the Bedside Arechiga equation.It is less accurate in patients with extremes of musclemass, restriction of dietary protein, ingestion of creatine,extra-renal metabolism of creatinine, or treatment withmedications that affect renal tubular creatinine secretion. Performed By: #### B MP3 ####[employer] [address] [place] [address] Glucose [Mass/Vol] 194 mg/dL High 70-100 [facility] Comment on above: Performed By: #### B MP3 ####[facility] [employer] [address] [place] [address] Urea nitrogen [Mass/Vol] 43 mg/dL High 7-20 [facility] Comment on above: Performed By: #### B MP3 ####[facility] [place] [address] Chloride [Moles/Vol] 96 mmol/L Low 98-107 [facility] Comment on above: Performed By: #### B MP3 ####[id number] [place] [address] Potassium [Moles/Vol] 4.3 mmol/L Normal 3.5-5.1 [facility] Comment on above: Performed By: #### B MP3 ####[address] [place] [address] Sodium [Moles/Vol] 126 mmol/L Low 135-145 [facility] Comment on above: Performed By: #### B MP3 ####[id number] [place], [place] Basic Metabolic PanelOrdered By: Shashank Sellers on 06-26-2021 Anion gap [Moles/Vol] 7 mmol/L 3 - 13 mmol/L [facility] Work Phone: Calcium [Mass/Vol] 8.4 mg/dL 8.4 - 10. 4 mg/dL [facility] Work Phone: Chloride [Moles/Vol] 95 mmol/L Low 98 - 10 7 mmol/L [facility] Work Phone: CO2 [Moles/Vol] 25 mmol/L 22 - 30 mmol/L [facility] Work Phone: Creatinine [Mass/Vol] 2.69 mg/dL High 0.52 - 1.25 mg/dL [facility] Work Phone: EGFR IF NonAfrican [place]orese 19.4 mL/min Abnormal >60 [facility] Work Phone: GFR/1.73 sq M.predicted among blacks MDRD (S/P/Bld) [Vol rate/Area] 22.5 mL/min/{1.73_m2} Abnormal >60 [facility] Work Phone: Glucose [Mass/Vol] 120 mg/dL High 70 - 100 mg/dL [facility] Work Phone: Interpretation and review of laboratory results Abnormal [facility] Work Phone: Potassium [Moles/Vol] 4.1 mmol/L 3.5 - 5.1 mmol/L [facility] Work Phone: Sodium [Moles/Vol] 127 mmol/L Low 135 - 145 mmol/L [facility] Work Phone: Urea nitrogen (BldV) [Mass/Vol] 44 mg/dL High 7 - 20 mg/dL [facility] Work Phone: [facility] Work Phone: [facility] Work Phone: CBC auto differentialOrdered By: Michelle Petty on 06-26-2021 Hematocrit (Bld) [Volume fraction] 30.3 % Low 35.0 - 47.0 % [facility] Work Phone: Hemoglobin.gastrointes tinal spec 1 Ql (Stl) 9.7 g/dL Low 11.7 - 16.0 g/dL [facility] Work Phone: Interpretation and review of laboratory results Abnormal [facility] Work Phone: MCH (RBC) [Entitic mass] 23.9 pg Low 26.0 - 34.0 pg [facility] Work Phone: MCHC (RBC) [Mass/Vol] 31.9 % Low 32.0 - 36.0 % [facility] Work Phone: MCV (RBC) [Entitic vol] 75.0 fL Low 79.0 - 98.0 fL [facility] Work Phone: Platelet distribution width (Bld) [Ratio] 24.6 % High 11.5 - 14.5 % [facility] Work Phone: Platelet mean volume (Bld) [Entitic vol] 7.9 fL 7.4 - 10.4 fL [facility] Work Phone: Platelets (Bld) [#/Vol] 140 10*3/uL 140 - 440 10*3/uL [facility] Work Phone: RBC (Bld) [#/Vol] 4.04 10*6/uL 3.80 - 5.2 0 10*6/uL [facility] Work Phone: [phone] WBC (Bld) [#/Vol] 6.1 10*3/uL 3.6 - 10.7 10*3/uL [facility] Work Phone: [phone] [facility] Work Phone: [phone] [facility] Work Phone: [phone] CREATININE, RANDOM URINEOrde red By: Lindsey Joyce on 06-26-2021 Creatinine (U) [Mass/Vol] 62.6 mg/dL No Range [facility] Work Phone: [phone] Complete Urinalysison 2020 Appearance (U) Turbid Abnormal Clear [facility] Comment on above: Result Comment: . Performed By: #### N AURR, UNURR, CUA2, CRTUR ####[facility] [address] [place], [place] #### OSMUR ####[facility] [address] [facility] [place] [address] Bacteria Moderate Abnormal Negative [facility] Comment on above: Result Comment: . Performed By: #### N AURR, UNURR, CUA2, CRTUR ####[facility] [address] [place], [place] #### OSMUR ####[facility] [address] [facility] [place] [address] Bilirubin,Urine Negative Normal Negative [facility] Comment on above: Result Comment: . Performed By: #### N AURR, UNURR, CUA2, CRTUR ####[facility] [address] [place] [address]#### OSMUR ####[facility] [address] [place] [facility] [place] [address] Cast, Hyaline Negative Normal Negative [facility] Comment on above: Result Comment: . Performed By: #### N AURR, UNURR, CUA2, CRTUR ####[facility] [address] [place] [address]#### OSMUR ####[facility] [address] [place] [address] Color (U) Yellow Normal Lt. Yellow [facility] Comment on above: Result Comment: . Performed By: #### N AURR, UNURR, CUA2, CRTUR ####[facility] [address] [facility] [place] #### OSMUR ####[facility] [address] [place] [address] Glucose Ql (U) Normal Normal Normal (<70) [facility] Comment on above: Result Comment: . Performed By: #### N AURR, UNURR, CUA2, CRTUR ####[facility] [address] [facility] [place] #### OSMUR ####[facility] [address] [place] [address] Ketone,Urine Negative Normal Negative [facility] Comment on above: Result Comment: . Performed By: #### N AURR, UNURR, CUA2, CRTUR ####[facility] [address] [facility] [place] #### OSMUR ####[facility] [address] [place] [address] Leukocytes,Urine Negative Normal Negative [facility] Comment on above: Result Comment: . Performed By: #### N AURR, UNURR, CUA2, CRTUR ####[facility] [address] [facility] [place] #### OSMUR ####[facility] [address] [place] [address] Mucous Threads Few Normal Negative [facility] Comment on above: Result Comment: . Performed By: #### N AURR, UNURR, CUA2, CRTUR ####[facility] [address] [facility] [place] #### OSMUR ####[facility] [address] [place] [address] Nitrites,Urine Negative Normal Negative [facility] Comment on above: Result Comment: . Performed By: #### N AURR, UNURR, CUA2, CRTUR ####[facility] [address] [facility] [place] #### OSMUR ####[facility] [place] [address] Occult Blood,Urine Negative Normal Negative [facility] Comment on above: Result Comment: . Performed By: #### N AURR, UNURR, CUA2, CRTUR ####[address] [facility] [place] #### OSMUR ####[facility] [place] [address] pH,Urine 5.0 Normal 5.0-8.0 [facility] Comment on above: Result Comment: . Performed By: #### N AURR, UNURR, CUA2, CRTUR ####[id number] [facility] [place] #### OSMUR ####[address] [place] [address] Protein (U) [Mass/Vol] 20 mg/dL Abnormal Negative [facility] Comment on above: Result Comment: . Performed By: #### N AURR, UNURR, CUA2, CRTUR ####[address] [facility] [place] #### OSMUR ####[facility] [place] [address] RBC, Urine 3 - 5 Abnormal 0-2 [facility] Comment on above: Result Comment: . Performed By: #### N AURR, UNURR, CUA2, CRTUR ####[id number] [facility] [place] #### OSMUR ####[facility] [place] [address] Specific [place],Urine 1.007 Normal 1.005 - 1.030 [facility] Comment on above: Result Comment: . Performed By: #### N AURR, UNURR, CUA2, CRTUR ####[id number] [facility] #### OSMUR ####[address] [place] [address] Squamous Epithelial 6 - 10 Abnormal 3-5 [facility] Comment on above: Result Comment: . Performed By: #### N AURR, UNURR, CUA2, CRTUR ####[facility] [address] [place] [address]#### OSMUR ####[facility] [place] [address] Urobilinogen,Urine Normal Normal Normal (0-1) [facility] Comment on above: Result Comment: . Performed By: #### N AURR, UNURR, CUA2, CRTUR ####[id number] [place] [address]#### OSMUR ####[facility] [facility] [place] [facility] [place] [address] WBC, Urine 3 - 5 Normal 0-5 [facility] Comment on above: Result Comment: . Performed By: #### N AURR, UNURR, CUA2, CRTUR ####[facility] [address] [address]#### OSMUR ####[address] [place] [address] Creatinine, Ur Randomon 05-31 Creatinine, Ur Random 62.6 mg/dL Normal No Range [facility] Comment on above: Performed By: #### N AURR, UNURR, CUA2, CRTUR ####[facility] [address] [address]#### OSMUR ####[address] [place] [address] EKG 12 LeadOrdered By: Kathy Sterling on 06-26-2021 [facility] Work Phone: [facility] Work Phone: [facility] Work Phone: Glucose,Bedsideon 06-26-2021 Glucose [Mass/Vol] 208 mg/dL High 70-100 [facility] Comment on above: Result Comment: Test performed by glucose meter. Results may be 10%-15% lowerthan serum/plasma values. (CLIA ID [id number]) Performed By: #### B GLU ####[facility] [address], [place] Glucose [Mass/Vol] 157 mg/dL High 70-100 [facility] Comment on above: Result Comment: Test performed by glucose meter. Results may be 10%-15% lowerthan serum/plasma values. (CLIA ID [id number]) Performed By: #### B GLU ####[address] [place] Glucose [Mass/Vol] 140 mg/dL High 70-100 [facility] Comment on above: Result Comment: Test performed by glucose meter. Results may be 10%-15% lowerthan serum/plasma values. (CLIA ID [id number]) Performed By: #### B GLU ####[address] Glucose [Mass/Vol] 139 mg/dL High 70-100 [facility] Comment on above: Result Comment: Test performed by glucose meter. Results may be 10%-15% lowerthan serum/plasma values. (CLIA ID [id number]) Performed By: #### B GLU ####[address] Hemogram w/ Autodiffon 06-26 Erythrocyte distribution width (RBC) [Ratio] 24.6 % High 11.5-14.5 [facility] Comment on above: Performed By: #### M DIFF, MG3, HEMDF, PHOS3, LFT3 ####[address] Hematocrit (Bld) [Volume fraction] 30.3 % Low 35.0-47.0 [facility] Comment on above: Performed By: #### M DIFF, MG3, HEMDF, PHOS3, LFT3 ####[address] Hemoglobin (Bld) [Mass/Vol] 9.7 g/dL Low 11.7-16.0 [facility] Comment on above: Performed By: #### M DIFF, MG3, HEMDF, PHOS3, LFT3 ####[address] MCH (RBC) [Entitic mass] 23.9 pg Low 26.0-34.0 [facility] Comment on above: Performed By: #### M DIFF, MG3, HEMDF, PHOS3, LFT3 ####[address] [place] MCHC 31.9 % Low 32.0-36.0 [facility] Comment on above: Performed By: #### M DIFF, MG3, HEMDF, PHOS3, LFT3 ####[address] MCV (RBC) [Entitic vol] 75.0 fL Low 79.0-98.0 [facility] Comment on above: Performed By: #### M DIFF, MG3, HEMDF, PHOS3, LFT3 ####[address] [place], [place] Platelet mean volume (Bld) [Entitic vol] 7.9 fL Normal 7.4-10.4 [facility] Comment on above: Performed By: #### M DIFF, MG3, HEMDF, PHOS3, LFT3 ####[id number] [place], [place] Platelets (Bld) [#/Vol] 140 10*3/uL Normal 140-440 [facility] Comment on above: Performed By: #### M DIFF, MG3, HEMDF, PHOS3, LFT3 ####[address] [place], [place] RBC (Bld) [#/Vol] 4.04 10*6/uL Normal 3.80-5.20 [facility] Comment on above: Performed By: #### M DIFF, MG3, HEMDF, PHOS3, LFT3 ####[address] WBC (Bld) [#/Vol] 6.1 10*3/uL Normal 3.6-10.7 [facility] Comment on above: Performed By: #### M DIFF, MG3, HEMDF, PHOS3, LFT3 ####[id number] [facility] [place] Hepatic Functionon 1 ALP [Catalytic activity/Vol] 111 U/L Normal 38-126 [facility] Comment on above: Performed By: #### M DIFF, MG3, HEMDF, PHOS3, LFT3 ####[id number] [facility] [place] ALT [Catalytic activity/Vol] 42 U/L High 0-34 [facility] Comment on above: Result Comment: The ALT test is performed by an updated assay method.Please note that the reference intervals have beenchanged and are now sex specific. Performed By: #### M DIFF, MG3, HEMDF, PHOS3, LFT3 ####[address] [address] [place] AST [Catalytic activity/Vol] 31 U/L Normal 15-46 [facility] Comment on above: Performed By: #### M DIFF, MG3, HEMDF, PHOS3, LFT3 ####[address] [facility] [place] Bilirubin [Mass/Vol] 0.4 mg/dL Normal 0.2-1.3 [facility] Comment on above: Performed By: #### M DIFF, MG3, HEMDF, PHOS3, LFT3 ####[address] [facility] [place] Bilirubin.indirect [Mass/Vol] 0.0 mg/dL Normal 0.0-0.3 [facility] Comment on above: Performed By: #### M DIFF, MG3, HEMDF, PHOS3, LFT3 ####[address] [facility] [place] Protein [Mass/Vol] 5.7 g/dL Low 6.3-8.2 [facility] Comment on above: Performed By: #### M DIFF, MG3, HEMDF, PHOS3, LFT3 ####[id number] [facility] [place] Albumin [Mass/Vol] 2.7 g/dL Low 3.5-5.0 [facility] Comment on above: Performed By: #### M DIFF, MG3, HEMDF, PHOS3, LFT3 ####[address] Magnesiumon 06-26-2021 Magnesium [Mass/Vol] 1.9 mg/dL Normal 1.6-2.3 [facility] Comment on above: Performed By: #### M DIFF, MG3, HEMDF, PHOS3, LFT3 ####[address] [place] Manual Diffon 06-26-2021 Abs Baso Cnt 0.0 10*3/uL Normal 0.0-0.2 [facility] Comment on above: Performed By: #### M DIFF, MG3, HEMDF, PHOS3, LFT3 ####[address] Abs Eosin Cnt 0.1 10*3/uL Normal 0.0-0.5 [facility] Comment on above: Performed By: #### M DIFF, MG3, HEMDF, PHOS3, LFT3 ####[address] Abs Lymph Cnt 0.8 10*3/uL Low 1.1-4.5 [facility] Comment on above: Performed By: #### M DIFF, MG3, HEMDF, PHOS3, LFT3 ####[address] Abs Monocyte Cnt 0.4 10*3/uL Normal 0.2-1.1 [facility] Comment on above: Performed By: #### M DIFF, MG3, HEMDF, PHOS3, LFT3 ####[address] Abs Neutrophile Cnt 4.7 10*3/uL Normal 2.2-8.2 [facility] Comment on above: Performed By: #### M DIFF, MG3, HEMDF, PHOS3, LFT3 ####[id number] [place], [place] Bands 4 % High 0-3 [facility] Comment on above: Performed By: #### M DIFF, MG3, HEMDF, PHOS3, LFT3 ####[address] [place], [place] Basophils 0 % Normal 0-2 [facility] Comment on above: Performed By: #### M DIFF, MG3, HEMDF, PHOS3, LFT3 ####[address] [place], [place] Cells counted 100 Normal [facility] Comment on above: Performed By: #### M DIFF, MG3, HEMDF, PHOS3, LFT3 ####[address] [place], [place] Eosinophils 1 % Normal 1-6 [facility] Comment on above: Performed By: #### M DIFF, MG3, HEMDF, PHOS3, LFT3 ####[address] [place], [place] Lymphocytes 13 % Low 20-40 [facility] Comment on above: Performed By: #### M DIFF, MG3, HEMDF, PHOS3, LFT3 ####[address] [place], [place] Metamyelocytes 2 % Abnormal <1 [facility] Comment on above: Performed By: #### M DIFF, MG3, HEMDF, PHOS3, LFT3 ####[address] [place], [place] Monocytes 7 % Normal 2-10 [facility] Comment on above: Performed By: #### M DIFF, MG3, HEMDF, PHOS3, LFT3 ####[address] [place], [place] RBC Morphology See Prev Normal [facility] Comment on above: Performed By: #### M DIFF, MG3, HEMDF, PHOS3, LFT3 ####[address] [place], [place] Seg Neutrophils 73 % Normal 40-80 [facility] Comment on above: Performed By: #### M DIFF, MG3, HEMDF, PHOS3, LFT3 ####[facility] [address] [place] [address] Manual DifferentialOrdered B y: Michelle Petty on 06-26-2021 Absolute Baso # 0.0 10*3/uL 0.0 - 0.2 10*3/uL [facility] Work Phone: 22 Absolute Eos # 0.1 10*3/uL 0.0 - 0.5 10*3/uL [facility] Work Phone: [phone] Absolute Lymph # 0.8 10*3/uL Low 1.1 - 4.5 10*3/uL [facility] Work Phone: 22 Absolute [place] # 0.4 10*3/uL 0.2 - 1.1 10*3/uL [facility] Work Phone: 22 Absolute Neut # 4.7 10*3/uL 2.2 - 8.2 10*3/uL [facility] Work Phone: 22 Bands 4 % High 0 - 3 % [facility] Work Phone: 22 Basophils/100 WBC (Bld) 0 % 0 - 2 % [facility] Work Phone: 22 Eosinophils/100 WBC (Bld) 1 % 1 - 6 % [facility] Work Phone: 22 Interpretation and review of laboratory results Abnormal [facility] Work Phone: 22 Lymphocytes/100 WBC (Bld) 13 % Low 20 - 40 % [facility] Work Phone: 22 Metamyelocytes 2 % Abnormal <1 [facility] Work Phone: 22 Monocytes/100 WBC (Bld) 7 % 2 - 10 % [facility] Work Phone: 22 RBC (Bld) [#/Vol] See Prev [facility] Work Phone: 22 Seg Neutrophils 73 % 40 - 80 % [facility] Work Phone: 22 TOTAL CELLS COUNTED 100 [facility] Work Phone: 22 [facility] Work Phone: 22 [facility] Work Phone: [phone] Panel InformationOrdered By: Lindsey Joyce on 06-26-2021 [facility] Work Phone: [phone] [facility] Work Phone: [phone] Osmolality, UrineOrdered By: Lindsey Joyce on 06-26-2021 Interpretation and review of laboratory results Abnormal [facility] Work Phone: [phone] Osmolality, Ur 178 mosm/kg Low 300 - 1000 mosm/kg [facility] Work Phone: [phone] [facility] Work Phone: [phone] [facility] Work Phone: [phone] Osmolality,Urineon Osmolality,Urine 178 mosm/kg Low 300-1000 [facility] Comment on above: Performed By: #### N AURR, UNURR, CUA2, CRTUR ####[facility] [address] [place] [address]#### OSMUR ####[facility] [address] [place] [address] POCT GlucoseOrdered By: Gennaro Parsons on 06-26-2021 Glucose [Mass/Vol] 208 mg/dL High 70 - 100 mg/dL [facility] Work Phone: [phone] Interpretation and review of laboratory results Abnormal [facility] Work Phone: [phone] [facility] Work Phone: 1 [facility] Work Phone: 1 POCT GlucoseOrdered By: Jesisca Soni on 06-26-2021 Glucose [Mass/Vol] 157 mg/dL High 70 - 100 mg/dL [facility] Work Phone: [phone] Interpretation and review of laboratory results Abnormal [facility] Work Phone: [phone] [facility] Work Phone: [phone] [facility] Work Phone: [phone] Glucose [Mass/Vol] 140 mg/dL High 70 - 100 mg/dL [facility] Work Phone: [phone] Interpretation and review of laboratory results Abnormal [facility] Work Phone: [phone] [facility] Work Phone: [phone] [facility] Work Phone: 1 Glucose [Mass/Vol] 139 mg/dL High 70 - 100 mg/dL [facility] Work Phone: [phone] Interpretation and review of laboratory results Abnormal [facility] Work [facility]: 1 [facility] Work [facility]: 1 [facility] Work Phone: 1 Phosphoruson 06-26-2021 Phosphate [Mass/Vol] 3.8 mg/dL Normal 2.5-4.5 [facility] Comment on above: Performed By: #### M DIFF, MG3, HEMDF, PHOS3, LFT3 ####[facility] [employer] [address] [address] Procalcitoninon 06-26-2021 Procalcitonin 0.32 ng/mL High 0.00-0.09 [facility] Comment on above: Performed By: #### U RIC3, BMP3, PCAL ####[facility] [employer] [address] Interpretation See Below Normal [facility] Comment on above: Result Comment: PCT <0.50 = Low risk of severe sepsis and/or septic shock.PCT >2.00 = High risk of severe sepsis and/or septic shock. Performed By: #### U RIC3, BMP3, PCAL ####[facility] [employer] [address] ProcalcitoninOrdered By: Anthony Sellers on 06-26-2021 Interpretation See Below [facility] Work Phone: [phone] Interpretation and review of laboratory results Abnormal [facility] Work [facility]: 1 Procalcitonin 0.32 ng/mL High 0.00 - 0.09 ng/mL [facility] Work Phone: 1 [facility] Work Phone: 1 [facility] Work Phone: [phone] Sodium, Ur Randomon 06-26-20 21 Sodium, Ur Random < 5 Low 30-90 [facility] Comment on above: Performed By: #### N AURR, UNURR, CUA2, CRTUR ####[employer] [id number] [place] [address]#### OSMUR ####[employer] [id number] [place] [address] Sodium, Urine, RandomOrdered By: Lindsey Joyce on 06-26-2021 Interpretation and review of laboratory results Abnormal [facility] Work Phone: [phone] Sodium (U) [Moles/Vol] mmol/L Low 30 - 90 mmol/L [facility] Work Phone: [phone] US RETROPERITONEAL COMPLETEO rdered By: Monae Huang on 06-26-2021 [facility] Work Phone: [phone] [facility] Work Phone: [phone] [facility] Work Phone: [phone] US Retroperitoneal Completeo n 06-26-2021 US Retroperitoneal Complete Normal [facility] Urea Nitrogen,Ur Randomon Urea nitrogen [Mass/Vol] 276 mg/dL Normal No Range [facility] Comment on above: Performed By: #### N AURR, UNURR, CUA2, CRTUR ####[id number] [place], [place] #### OSMUR ####[facility] [employer] [id number] [place] [address] Urea nitrogen, urineOrdered By: Lindsey Joyce on 06-26-2021 Urea Nitrogen, Random Urine 276 mg/dL No Range [facility] Work Phone: Uric Acidon 06-26-2021 Urate [Mass/Vol] 9.4 mg/dL High 2.5-8.5 [facility] Comment on above: Performed By: #### U RIC3, BMP3, PCAL ####[facility] [address] [place] [address] Uric AcidOrdered By: Shashank snowden on 06-26-2021 Interpretation and review of laboratory results Abnormal [facility] Work Phone: Urate [Mass/Vol] 9.4 mg/dL High 2.5 - 8.5 mg/dL [facility] Work Phone: [facility] Work Phone: [phone] [facility] Work Phone: [phone] UrinalysisOrdered By: Lindsey Joyce on 06-26-2021 Appearance (U) Turbid Abnormal Clear NA [facility] Work Phone: [phone] Bacteria, UA Moderate Abnormal Negative /[HPF] [facility] Work Phone: [phone] Bilirubin Urine Negative Negative mg/dL [facility] Work Phone: [phone] Color (U) Yellow Lt. Yellow NA [facility] Work Phone: [phone] Glucose, Ur Normal Normal (<70) mg/dL [facility] Work Phone: [phone] Hyaline Casts, UA Negative Negative /[LPF] [facility] Work Phone: [phone] Interpretation and review of laboratory results Abnormal [facility] Work Phone: [phone] Ketones Ql (U) Negative Negative mg/dL [facility] Work Phone: [phone] LEUKOCYTES, UA Negative Negative [place]/uL [facility] Work Phone: [phone] Mucous Threads Few Negative /[LPF] [facility] Work Phone: [phone] Nitrite, Urine Negative Negative NA [facility] Work Phone: [phone] Occult Blood,Urine Negative Negative mg/dL [facility] Work Phone: [phone] pH (U) 5.0 [pH] [facility] Work Phone: [phone] RBC, UA 3-5 Abnormal 0 - 2 /[HPF] [facility] Work Phone: [phone] Specific [place], Urine 1.007 [facility] Work Phone: [phone] Squam Epithel, UA 6-10 Abnormal 3 - 5 /[HPF] [facility] Work Phone: [phone] Total Protein, Urine 20 mg/dL Abnormal Negative [facility] Work Phone: [phone] Urobilinogen, Urine Normal Normal ( 0-1) mg/dL [facility] Work Phone: [phone] WBC, UA 3-5 0 - 5 /[HPF] [facility] Work Phone: [phone] [facility] Work Phone: [phone] [facility] Work Phone: [phone] Vancomycin Troughon 06-26-20 Vancomycin Trough 58.2 ug/mL High 15.0-20.0 [facility] Comment on above: Result Comment: . Performed By: #### V ANCT ####[address] Vancomycin, TroughOrdered By : Willie Andrade on 06-26-2021 Interpretation and review of laboratory results Abnormal [facility] Work Phone: [phone] Vancomycin Tr 58.2 ug/mL High 15.0 - 20.0 ug/mL [facility] Work Phone: [phone] [facility] Work Phone: [phone] [facility] Work Phone: [phone] Arterial Blood Gaseson 06-25 CO2 [Moles/Vol] 26.4 mmol/L Normal 23.0-27.0 [facility] Comment on above: Performed By: #### A BG ####[address] HCO3 (Bld) [Moles/Vol] 25.1 mmol/L High 21.0-25.0 [facility] Comment on above: Performed By: #### A BG ####[address] Hemoglobin (Bld) [Mass/Vol] 9.9 g/dL Normal ScreenOnly [facility] Comment on above: Performed By: #### A BG ####[address] Oxygen (Bld) [Partial pressure] 100.6 mm[Hg] High 80.0-100.0 [facility] Comment on above: Performed By: #### A BG ####[address] Oxygen saturation in Blood 97.5 % Normal 95.0-100.0 [facility] Comment on above: Performed By: #### A BG ####[address] pCO2 40.7 mm[Hg] Normal 35.0-45.0 [facility] Comment on above: Performed By: #### A BG ####[facility] [employer] [id number] [place], [place] pH 7.408 Normal 7.350-7.450 [facility] Comment on above: Performed By: #### A BG ####[facility] [employer] [id number] [place] Std Base Excess 0.4 mmol/L Normal -3.0-3.0 [facility] Comment on above: Performed By: #### A BG ####[facility] [employer] [id number] [place], [place] FIO2 No data Normal [facility] Comment on above: Performed By: #### A BG ####[facility] [employer] [id number] [place] Basic Metabolic PanelOrdered By: Shashank Sellers on 06-25-2021 Anion gap [Moles/Vol] 8 mmol/L 3 - 13 mmol/L [facility] Work Phone: Calcium [Mass/Vol] 8.2 mg/dL Low 8.4 - 10. 4 mg/dL [facility] Work Phone: Chloride [Moles/Vol] 96 mmol/L Low 98 - 10 7 mmol/L [facility] Work Phone: CO2 [Moles/Vol] 22 mmol/L 22 - 30 mmol/L [facility] Work Phone: Creatinine [Mass/Vol] 2.46 mg/dL High 0.52 - 1.25 mg/dL [facility] Work Phone: EGFR IF NonAfrican [place]orese 21.6 mL/min Abnormal >60 [facility] Work Phone: GFR/1.73 sq M.predicted among blacks MDRD (S/P/Bld) [Vol rate/Area] 25.0 mL/min/{1.73_m2} Abnormal >60 [facility] Work Phone: Glucose [Mass/Vol] 194 mg/dL High 70 - 100 mg/dL [facility] Work Phone: [phone] Interpretation and review of laboratory results Abnormal [facility] Work Phone: [phone] Potassium [Moles/Vol] 4.3 mmol/L 3.5 - 5.1 mmol/L [facility] Work Phone: [phone] Sodium [Moles/Vol] 126 mmol/L Low 135 - 145 mmol/L [facility] Work Phone: [phone] Urea nitrogen (BldV) [Mass/Vol] 43 mg/dL High 7 - 20 mg/dL [facility] Work Phone: [phone] [facility] Work Phone: [phone] [facility] Work Phone: [phone] Basic Metabolic Panelon - Calcium [Mass/Vol] 8.6 mg/dL Normal 8.4-10.4 [facility] Comment on above: Performed By: #### B MP3 ####[facility] [employer] [id number] [place] [address] Anion gap [Moles/Vol] 8 mmol/L Normal 3-13 [facility] Comment on above: Performed By: #### B MP3 ####[facility] [employer] [address] [place] [address] CO2 [Moles/Vol] 23 mmol/L Normal 22-30 [facility] Comment on above: Performed By: #### B MP3 ####[facility] [employer] [id number] [place] [address] Creatinine [Mass/Vol] 2.25 mg/dL High 0.52-1.25 [facility] Comment on above: Performed By: #### B MP3 ####[facility] [employer] [address] [place] [address] GFR/1.73 sq M.predicted among blacks MDRD (S/P/Bld) [Vol rate/Area] 27.9 mL/min/{1.73_m2} Abnormal >60 [facility] Comment on above: Performed By: #### B MP3 ####[id number] [place] [address] GFR/1.73 sq M.predicted among non-blacks MDRD (S/P/Bld) [Vol rate/Area] 24.0 mL/min/{1.73_m2} Abnormal >60 [facility] Comment on above: Result Comment: KDIG O guidelines provide the following GFR categories:Stage GFR(ml/min/1.73 m2) TermsG1 >=90 Normal or highG2 60-89 Mildly decreased*G3a 45-59 Mildly to moderately [id number] 30-44 Moderately to severely decreasedG4 15-29 Severely decreasedG5 <15 Kidney failure*Relative to young adult level.In the absence of evidence of kidney damage, neither GFRcategory G1 nor G2 fulfill the criteria for CKD.The CKD-EPI equation is validated in individuals 18 yearsof age and older. Currently the best equation forestimating glomerular filtration rate (GFR) from serumcreatinine in children is the Bedside Arechiga equation.It is less accurate in patients with extremes of musclemass, restriction of dietary protein, ingestion of creatine,extra-renal metabolism of creatinine, or treatment withmedications that affect renal tubular creatinine secretion. Performed By: #### B MP3 ####[id number] [place], [place] Glucose [Mass/Vol] 119 mg/dL High 70-100 [facility] Comment on above: Performed By: #### B MP3 ####[address] Urea nitrogen [Mass/Vol] 40 mg/dL High 7-20 [facility] Comment on above: Performed By: #### B MP3 ####[id number] [place], [place] Chloride [Moles/Vol] 94 mmol/L Low 98-107 [facility] Comment on above: Performed By: #### B MP3 ####[id number] [place], [place] Potassium [Moles/Vol] 4.7 mmol/L Normal 3.5-5.1 [facility] Comment on above: Performed By: #### B MP3 ####[id number] [place], [place] Sodium [Moles/Vol] 124 mmol/L Low 135-145 [facility] Comment on above: Performed By: #### B MP3 ####[id number] [place] Calcium [Mass/Vol] 8.7 mg/dL Normal 8.4-10.4 [facility] Comment on above: Performed By: #### H EMDF, MG3, BMP3M, PHOS3, MDIFF ####[id number] [place], [place] Glucose [Mass/Vol] 129 mg/dL High 70-100 [facility] Comment on above: Performed By: #### H EMDF, MG3, BMP3M, PHOS3, MDIFF ####[id number] [place] Urea nitrogen [Mass/Vol] 37 mg/dL High 7-20 [facility] Comment on above: Performed By: #### H EMDF, MG3, BMP3M, PHOS3, MDIFF ####[id number] [place] Anion gap [Moles/Vol] 9 mmol/L Normal 3-13 [facility] Comment on above: Performed By: #### H EMDF, MG3, BMP3M, PHOS3, MDIFF ####[id number] [place], [place] CO2 [Moles/Vol] 20 mmol/L Low 22-30 [facility] Comment on above: Performed By: #### H EMDF, MG3, BMP3M, PHOS3, MDIFF ####[id number] [place] Creatinine [Mass/Vol] 1.98 mg/dL High 0.52-1.25 [facility] Comment on above: Performed By: #### H EMDF, MG3, BMP3M, PHOS3, MDIFF ####[id number] [place] GFR/1.73 sq M.predicted among blacks MDRD (S/P/Bld) [Vol rate/Area] 32.5 mL/min/{1.73_m2} Abnormal >60 [facility] Comment on above: Performed By: #### H EMDF, MG3, BMP3M PHOMD WoodrowIFF ####[facility] [employer] [address] [place] [address] GFR/1.73 sq M.predicted among non-blacks MDRD (S/P/Bld) [Vol rate/Area] 28.1 mL/min/{1.73_m2} Abnormal >60 [facility] Comment on above: Result Comment: KDIG O guidelines provide the following GFR categories:Stage GFR(ml/min/1.73 m2) TermsG1 >=90 Normal or highG2 60-89 Mildly decreased*G3a 45-59 Mildly to moderately [id number] 30-44 Moderately to severely decreasedG4 15-29 Severely decreasedG5 <15 Kidney failure*Relative to young adult level.In the absence of evidence of kidney damage, neither GFRcategory G1 nor G2 fulfill the criteria for CKD.The CKD-EPI equation is validated in individuals 18 yearsof age and older. Currently the best equation forestimating glomerular filtration rate (GFR) from serumcreatinine in children is the Bedside Arechiga equation.It is less accurate in patients with extremes of musclemass, restriction of dietary protein, ingestion of creatine,extra-renal metabolism of creatinine, or treatment withmedications that affect renal tubular creatinine secretion. Performed By: #### H EMDF, MG3, BMP3M PHOWoodrow MDIFF ####[facility] [employer] [address] [place] [address] Potassium [Moles/Vol] 4.2 mmol/L Normal 3.5-5.1 [facility] Comment on above: Performed By: #### H EMDF, MG3, BMP3MELVIN MDIFF ####[facility] [employer] [address] [place] [address] Chloride [Moles/Vol] 96 mmol/L Low 98-107 [facility] Comment on above: Performed By: #### H EMDF, MG3, BMP3M, PHOWoodrow, MDIFF ####[facility] [employer] [id number] [place] [address] Sodium [Moles/Vol] 125 mmol/L Low 135-145 [facility] [employer] System Comment on above: Performed By: #### H EMDF, MG3, BMP3M, MD ELVINIFF ####[facility] [address] [place] [address] Basic Metabolic PanelOrdered By: Checo Kirk on 06-25-2021 Anion gap [Moles/Vol] 8 mmol/L 3 - 13 mmol/L [facility] Work Phone: Calcium [Mass/Vol] 8.6 mg/dL 8.4 - 10. 4 mg/dL [facility] Work Phone: [phone] Chloride [Moles/Vol] 94 mmol/L Low 98 - 10 7 mmol/L [facility] Work Phone: [phone] CO2 [Moles/Vol] 23 mmol/L 22 - 30 mmol/L [facility] Work Phone: [phone] Creatinine [Mass/Vol] 2.25 mg/dL High 0.52 - 1.25 mg/dL [facility] Work Phone: [phone] EGFR IF NonAfrican [place]orese 24.0 mL/min Abnormal >60 [facility] Work Phone: GFR/1.73 sq M.predicted among blacks MDRD (S/P/Bld) [Vol rate/Area] 27.9 mL/min/{1.73_m2} Abnormal >60 [facility] Work Phone: Glucose [Mass/Vol] 119 mg/dL High 70 - 100 mg/dL [facility] Work Phone: [phone] Interpretation and review of laboratory results Abnormal [facility] Work Phone: Potassium [Moles/Vol] 4.7 mmol/L 3.5 - 5.1 mmol/L [facility] Work Phone: [phone] Sodium [Moles/Vol] 124 mmol/L Low 135 - 145 mmol/L [facility] Work Phone: Urea nitrogen (BldV) [Mass/Vol] 40 mg/dL High 7 - 20 mg/dL [facility] Work Phone: [facility] Work Phone: [phone] [facility] Work Phone: [phone] Basic Metabolic Panel w/ Ref kaitlin to MGOrdered By: Michelle ePtty on 06-25-2021 Anion gap [Moles/Vol] 9 mmol/L 3 - 13 mmol/L [facility] Work Phone: [phone] Calcium [Mass/Vol] 8.7 mg/dL 8.4 - 10. 4 mg/dL [facility] Work Phone: [phone] Chloride [Moles/Vol] 96 mmol/L Low 98 - 10 7 mmol/L [facility] Work Phone: [phone] CO2 [Moles/Vol] 20 mmol/L Low 22 - 30 mmol/L [facility] Work Phone: [phone] Creatinine [Mass/Vol] 1.98 mg/dL High 0.52 - 1.25 mg/dL [facility] Work Phone: [phone] EGFR IF NonAfrican [place] 28.1 mL/min Abnormal >60 [facility] Work Phone: [phone] GFR/1.73 sq M.predicted among blacks MDRD (S/P/Bld) [Vol rate/Area] 32.5 mL/min/{1.73_m2} Abnormal >60 [facility] Work Phone: [phone] Glucose [Mass/Vol] 129 mg/dL High 70 - 100 mg/dL [facility] Work Phone: [phone] Interpretation and review of laboratory results Abnormal [facility] Work Phone: [phone] Potassium [Moles/Vol] 4.2 mmol/L 3.5 - 5.1 mmol/L [facility] Work Phone: [phone] Sodium [Moles/Vol] 125 mmol/L Low 135 - 145 mmol/L [facility] Work Phone: [phone] Urea nitrogen (BldV) [Mass/Vol] 37 mg/dL High 7 - 20 mg/dL [facility] Work Phone: [phone] Blood Gas, ArterialOrdered B y: Willie Andrade on 06-25-2021 Base Excess, Arterial 0.4 mmol/L -3.0 - 3.0 mmol/L [facility] Work Phone: [phone] Arterial No data [facility] Work Phone: [phone] HCO3, Arterial 25.1 mmol/L High 21.0 - 25.0 mmol/L [facility] Work Phone: [phone] Hemoglobin, Art, Extended 9.9 g/dL ScreenOnly [facility] Work Phone: [phone] Interpretation and review of laboratory results Abnormal [facility] Work Phone: [phone] O2 Sat, Arterial 97.5 % 95.0 - 100. 0 % [facility] Work Phone: [phone] pCO2, Arterial 40.7 mm[Hg] 35.0 - 45.0 mm[Hg] [facility] Work Phone: [phone] pH, Arterial 7.408 [facility] Work Phone: [phone] pO2, Arterial 100.6 mm[Hg] High 80.0 - 100.0 mm[Hg] [facility] Work Phone: [phone] TCO2, Arterial 26.4 mmol/L 23.0 - 27.0 mmol/L [facility] Work Phone: [phone] [facility] Work Phone: [phone] [facility] Work Phone: [phone] CBC auto differentialOrdered By: Michelle Petty on 06-25-2021 Hematocrit (Bld) [Volume fraction] 33.6 % Low 35.0 - 47.0 % [facility] Work Phone: [phone] Hemoglobin.gastrointes tinal spec 1 Ql (Stl) 10.7 g/dL Low 11.7 - 16.0 g/dL [facility] Work Phone: [phone] Interpretation and review of laboratory results Abnormal [facility] Work Phone: [phone] MCH (RBC) [Entitic mass] 23.7 pg Low 26.0 - 34.0 pg [facility] Work Phone: [phone] MCHC (RBC) [Mass/Vol] 31.7 % Low 32.0 - 36.0 % [facility] Work Phone: [phone] MCV (RBC) [Entitic vol] 74.9 fL Low 79.0 - 98.0 fL [facility] Work Phone: Platelet distribution width (Bld) [Ratio] 25.1 % High 11.5 - 14.5 % [employer] Work Phone: [phone] Platelet mean volume (Bld) [Entitic vol] 8.0 fL 7.4 - 10.4 fL [facility] Work Phone: [phone] Platelets (Bld) [#/Vol] 155 10*3/uL 140 - 440 10*3/uL [facility] Work Phone: [phone] RBC (Bld) [#/Vol] 4.49 10*6/uL 3.80 - 5.2 0 10*6/uL [facility] Work Phone: [phone] WBC (Bld) [#/Vol] 7.2 10*3/uL 3.6 - 10.7 10*3/uL [facility] Work Phone: [phone] [facility] Work Phone: [phone] [facility] Work Phone: [phone] CR Chest Portableon 06-25-20 21 CR Chest Portable Normal [facility] CULTURE BLOODon 06-25-2021 Microscopic examination of blood, culture CULTURE BLOOD --> Status: F No growth at 5 days. [facility] Comment on above: Performed By: #### C /BLD ####[employer] [place], [place] CULTURE BLOOD (Two)on 2020 Microscopic examination of blood, culture CULTURE BLOOD (Two) --> Status: F No growth at 5 days. Normal [facility] Comment on above: Performed By: #### C /BLT ####[employer] [place], [place] Glucose,Bedsideon 06-25-2021 Glucose [Mass/Vol] 206 mg/dL High 70-100 [facility] Comment on above: Result Comment: Test performed by glucose meter. Results may be 10%-15% lowerthan serum/plasma values. (CLIA ID [id number]) Performed By: #### B GLU ####[employer] [employer] [place] Glucose [Mass/Vol] 130 mg/dL High 70-100 [facility] Comment on above: Result Comment: Test performed by glucose meter. Results may be 10%-15% lowerthan serum/plasma values. (CLIA ID [id number]) Performed By: #### B GLU ####[address] Hemogram w/ Autodiffon 06-25 Erythrocyte distribution width (RBC) [Ratio] 25.1 % High 11.5-14.5 [facility] Comment on above: Performed By: #### H EMDF, MG3, BMP3M, PHOS3, MDIFF ####[id number] [place], [place] Hematocrit (Bld) [Volume fraction] 33.6 % Low 35.0-47.0 [facility] Comment on above: Performed By: #### H EMDF, MG3, BMP3M, PHOS3, MDIFF ####[address] [place], [place] Hemoglobin (Bld) [Mass/Vol] 10.7 g/dL Low 11.7-16.0 [facility] Comment on above: Performed By: #### H EMDF, MG3, BMP3M, PHOS3, MDIFF ####[id number] [place], [place] MCH (RBC) [Entitic mass] 23.7 pg Low 26.0-34.0 [facility] Comment on above: Performed By: #### H EMDF, MG3, BMP3M, PHOS3, MDIFF ####[address] [place], [place] MCHC 31.7 % Low 32.0-36.0 [facility] Comment on above: Performed By: #### H EMDF, MG3, BMP3M, PHOS3, MDIFF ####[id number] [place], [place] MCV (RBC) [Entitic vol] 74.9 fL Low 79.0-98.0 [facility] Comment on above: Performed By: #### H EMDF, MG3, BMP3M, PHOS3, MDIFF ####[facility] [place] Platelet mean volume (Bld) [Entitic vol] 8.0 fL Normal 7.4-10.4 [facility] Comment on above: Performed By: #### H EMDF, MG3, BMP3M, PHOS3, MDIFF ####[id number] [place] Platelets (Bld) [#/Vol] 155 10*3/uL Normal 140-440 [facility] Comment on above: Performed By: #### H EMDF, MG3, BMP3M, PHOS3, MDIFF ####[id number] [place] RBC (Bld) [#/Vol] 4.49 10*6/uL Normal 3.80-5.20 [facility] Comment on above: Performed By: #### H EMDF, MG3, BMP3M, PHOS3, MDIFF ####[facility] [employer] [id number] [place] WBC (Bld) [#/Vol] 7.2 10*3/uL Normal 3.6-10.7 [facility] Comment on above: Performed By: #### H EMDF, MG3, BMP3M, PHOS3, MDIFF ####[id number] [place], [place] Hepatic Function PanelOrdere d By: Tello Sterling on 06-25-2021 Albumin [Mass/Vol] 2.7 g/dL Low 3.5 - 5.0 g/dL [facility] Work Phone: ALP (Bld) [Catalytic activity/Vol] 111 U/L 38 - 126 U/L [facility] Work Phone: ALT [Catalytic activity/Vol] 42 U/L High 0 - 34 U/L [facility] Work Phone: AST [Catalytic activity/Vol] 31 U/L 15 - 46 U/L [facility] Work Phone: Bilirubin [Mass/Vol] 0.4 mg/dL 0.2 - 1 .3 mg/dL [facility] Work Phone: [phone] Bilirubin.indirect [Mass/Vol] 0.0 mg/dL 0.0 - 0.3 mg/dL [facility] Work Phone: [phone] Free PSA/Total PSA [Mass fraction] 5.7 g/dL Low 6.3 - 8.2 g/dL [facility] Work Phone: [phone] Interpretation and review of laboratory results Abnormal [facility] Work Phone: [phone] MagnesiumOrdered By: Michelle lauren on 06-25-2021 Magnesium [Mass/Vol] 1.9 mg/dL 1.6 - 2 .3 mg/dL [facility] Work Phone: [phone] Magnesium [Mass/Vol] 2.1 mg/dL 1.6 - 2 .3 mg/dL [facility] Work Phone: [phone] Magnesiumon 06-25-2021 Magnesium [Mass/Vol] 2.1 mg/dL Normal 1.6-2.3 [facility] Comment on above: Performed By: #### H EMDF, MG3, BMP3MELVIN MDIFF ####[facility] [employer] [address] Manual Diffon 06-25-2021 Abs Baso Cnt 0.0 10*3/uL Normal 0.0-0.2 [facility] Comment on above: Performed By: #### H EMDF, MG3, BMP3M, PHOWoodrow, MDIFF ####[facility] [employer] [id number] [place], [place] Abs Eosin Cnt 0.2 10*3/uL Normal 0.0-0.5 [facility] Comment on above: Performed By: #### H EMDF, MG3, BMP3M, PHOWoodrow, MDIFF ####[facility] [employer] [id number] [place], [place] Abs Lymph Cnt 0.5 10*3/uL Low 1.1-4.5 [facility] Comment on above: Performed By: #### H EMDF, MG3, BMP3M, PHOS3, MDIFF ####[id number] [place], [place] Abs Monocyte Cnt 0.1 10*3/uL Low 0.2-1.1 [facility] Comment on above: Performed By: #### H EMDF, MG3, BMP3M, PHOS3, MDIFF ####[id number] [place], [place] Abs Neutrophile Cnt 6.2 10*3/uL Normal 2.2-8.2 [facility] Comment on above: Performed By: #### H EMDF, MG3, BMP3M, PHOS3, MDIFF ####[address] Bands 0 % Normal 0-3 [facility] Comment on above: Performed By: #### H EMDF, MG3, BMP3M, PHOS3, MDIFF ####[address] Basophils 0 % Normal 0-2 [facility] Comment on above: Performed By: #### H EMDF, MG3, BMP3M, PHOS3, MDIFF ####[id number] [place], [place] Cells counted 100 Normal [facility] Comment on above: Performed By: #### H EMDF, MG3, BMP3M, PHOS3, MDIFF ####[address] Eosinophils 3 % Normal 1-6 [facility] Comment on above: Performed By: #### H EMDF, MG3, BMP3M, PHOS3, MDIFF ####[id number] [place], [place] Lymphocytes 7 % Low 20-40 [facility] Comment on above: Performed By: #### H EMDF, MG3, BMP3M, PHOS3, MDIFF ####[address] [place], [place] Metamyelocytes 3 % Abnormal <1 [facility] Comment on above: Performed By: #### H EMDF, MG3, BMP3M, PHOS3, MDIFF ####[facility] [address] [place], [place] Monocytes 1 % Low 2-10 [facility] Comment on above: Performed By: #### H EMDF, MG3, BMP3M, PHOS3, MDIFF ####[facility] [address] [place] RBC Morphology See Prev Normal [facility] Comment on above: Performed By: #### H EMDF, MG3, BMP3M, PHOS3, MDIFF ####[facility] [address] [place] Seg Neutrophils 86 % High 40-80 [facility] Comment on above: Performed By: #### H EMDF, MG3, BMP3M, PHOS3, MDIFF ####[address] [place] [address] Manual DifferentialOrdered B y: Michelle Petty on 06-25-2021 Absolute Baso # 0.0 10*3/uL 0.0 - 0.2 10*3/uL [facility] Work Phone: 22 Absolute Eos # 0.2 10*3/uL 0.0 - 0.5 10*3/uL [facility] Work Phone: 22 Absolute Lymph # 0.5 10*3/uL Low 1.1 - 4.5 10*3/uL [facility] Work Phone: 22 Absolute [place] # 0.1 10*3/uL Low 0.2 - 1.1 10*3/uL [facility] Work Phone: 22 Absolute Neut # 6.2 10*3/uL 2.2 - 8.2 10*3/uL [facility] Work Phone: [phone] Bands 0 % 0 - 3 % [facility] Work Phone: 22 Basophils/100 WBC (Bld) 0 % 0 - 2 % [facility] Work Phone: [phone] Eosinophils/100 WBC (Bld) 3 % 1 - 6 % [facility] Work Phone: [phone] Interpretation and review of laboratory results Abnormal [facility] Work Phone: [phone] Lymphocytes/100 WBC (Bld) 7 % Low 20 - 40 % [facility] Work Phone: [phone] Metamyelocytes 3 % Abnormal <1 [facility] Work Phone: [phone] Monocytes/100 WBC (Bld) 1 % Low 2 - 10 % [facility] Work Phone: [phone] RBC (Bld) [#/Vol] See Prev [facility] Work Phone: [phone] Neutrophils 86 % High 40 - 80 % [facility] Work Phone: [phone] TOTAL CELLS COUNTED 100 [facility] Work Phone: [phone] [facility] Work Phone: [phone] [facility] Work Phone: [phone] Panel InformationOrdered By: Michelle Petty on 06-25-2021 [facility] Work Phone: [phone] [facility] Work Phone: [phone] [facility] Work Phone: [phone] [facility] Work Phone: [phone] Panel InformationOrdered By: Eladia Scanlon on 06-25-2021 Blood Culture, Routine No growth at 5 days. [facility] Work Phone: [phone] [facility] Work Phone: [phone] [facility] Work Phone: [phone] POCT GlucoseOrdered By: Gennaor Parsons on 06-25-2021 Glucose [Mass/Vol] 206 mg/dL High 70 - 100 mg/dL [facility] Work Phone: [phone] Interpretation and review of laboratory results Abnormal [facility] Work Phone: [phone] [facility] Work Phone: [phone] [facility] Work Phone: [phone] Glucose [Mass/Vol] 130 mg/dL High 70 - 100 mg/dL [facility] Work Phone: [phone] Interpretation and review of laboratory results Abnormal [facility] Work Phone: [phone] [facility] Work Phone: [phone] [facility] Work Phone: [phone] PhosphorusOrdered By: Michelle pearson on 06-25-2021 Phosphate [Mass/Vol] 3.8 mg/dL 2.5 - 4 .5 mg/dL [facility] Work Phone: [phone] Phosphate [Mass/Vol] 4.0 mg/dL 2.5 - 4 .5 mg/dL [facility] Work Phone: [phone] Phosphoruson 06-25-2021 Phosphate [Mass/Vol] 4.0 mg/dL Normal 2.5-4.5 [facility] Comment on above: Performed By: #### H EMDF, MG3, BMP3M, PHOS3, MDIFF ####[facility] [place] [address] XR CHEST PORTABLEOrdered By: Willie Andrade on 06-25-2021 [facility] Work Phone: [phone] [facility] Work Phone: [phone] [facility] Work Phone: [phone] Basic Metabolic Panelon 05-31 Calcium [Mass/Vol] 8.5 mg/dL Normal 8.4-10.4 [facility] Comment on above: Performed By: #### B MP3M, PHOS3, LFT3, ICA, MG3, HEMDF ####[address] [place] [address] Glucose [Mass/Vol] 152 mg/dL High 70-100 [facility] Comment on above: Performed By: #### B MP3M, PHOS3, LFT3, ICA, MG3, HEMDF ####[facility] [address] [place] [address] Urea nitrogen [Mass/Vol] 34 mg/dL High 7-20 [facility] Comment on above: Performed By: #### B MP3M, PHOS3, LFT3, ICA, MG3, HEMDF ####[facility] [place] [address] Anion gap [Moles/Vol] 7 mmol/L Normal 3-13 [facility] Comment on above: Performed By: #### B MP3M, PHOS3, LFT3, ICA, MG3, HEMDF ####[address] [place], [place] CO2 [Moles/Vol] 28 mmol/L Normal 22-30 [facility] Comment on above: Performed By: #### B MP3M, PHOS3, LFT3, ICA, MG3, HEMDF ####[address] [place], [place] Creatinine [Mass/Vol] 1.26 mg/dL High 0.52-1.25 [facility] Comment on above: Performed By: #### B MP3M, PHOS3, LFT3, ICA, MG3, HEMDF ####[address] [place], [place] GFR/1.73 sq M.predicted among blacks MDRD (S/P/Bld) [Vol rate/Area] 56.2 mL/min/{1.73_m2} Abnormal >60 [facility] Comment on above: Performed By: #### B MP3M, PHOS3, LFT3, ICA, MG3, HEMDF ####[address] [place] GFR/1.73 sq M.predicted among non-blacks MDRD (S/P/Bld) [Vol rate/Area] 48.5 mL/min/{1.73_m2} Abnormal >60 [facility] Comment on above: Result Comment: KDIG O guidelines provide the following GFR categories:Stage GFR(ml/min/1.73 m2) TermsG1 >=90 Normal or highG2 60-89 Mildly decreased*G3a 45-59 Mildly to moderately [id number] 30-44 Moderately to severely decreasedG4 15-29 Severely decreasedG5 <15 Kidney failure*Relative to young adult level.In the absence of evidence of kidney damage, neither GFRcategory G1 nor G2 fulfill the criteria for CKD.The CKD-EPI equation is validated in individuals 18 yearsof age and older. Currently the best equation forestimating glomerular filtration rate (GFR) from serumcreatinine in children is the Bedside Arechiga equation.It is less accurate in patients with extremes of musclemass, restriction of dietary protein, ingestion of creatine,extra-renal metabolism of creatinine, or treatment withmedications that affect renal tubular creatinine secretion. Performed By: #### B MP3M, PHOS3, LFT3, ICA, MG3, HEMDF ####[facility] [address] [place], [place] Chloride [Moles/Vol] 96 mmol/L Low 98-107 [facility] Comment on above: Performed By: #### B MP3M, PHOS3, LFT3, ICA, MG3, HEMDF ####[facility] [place], [place] Potassium [Moles/Vol] 4.1 mmol/L Normal 3.5-5.1 [facility] Comment on above: Result Comment: Slig htly hemolysed, interpret with caution. Performed By: #### B MP3M, PHOS3, LFT3, ICA, MG3, HEMDF ####[facility] [address] [place], [place] Sodium [Moles/Vol] 131 mmol/L Low 135-145 [facility] Comment on above: Performed By: #### B MP3M, PHOS3, LFT3, ICA, MG3, HEMDF ####[facility] [address] [place], [place] Basic Metabolic Panel w/ Ref kaitlin to MGOrdered By: Michelle Petty on 06-24-2021 Anion gap [Moles/Vol] 7 mmol/L 3 - 13 mmol/L [facility] Work Phone: Calcium [Mass/Vol] 8.5 mg/dL 8.4 - 10. 4 mg/dL [facility] Work Phone: Chloride [Moles/Vol] 96 mmol/L Low 98 - 10 7 mmol/L [facility] Work Phone: CO2 [Moles/Vol] 28 mmol/L 22 - 30 mmol/L [facility] Work Phone: Creatinine [Mass/Vol] 1.26 mg/dL High 0.52 - 1.25 mg/dL [facility] Work Phone: EGFR IF NonAfrican [place] 48.5 mL/min Abnormal >60 [facility] Work Phone: [phone] 22 GFR/1.73 sq M.predicted among blacks MDRD (S/P/Bld) [Vol rate/Area] 56.2 mL/min/{1.73_m2} Abnormal >60 [facility] Work Phone: [phone] Glucose [Mass/Vol] 152 mg/dL High 70 - 100 mg/dL [facility] Work Phone: [phone] Potassium [Moles/Vol] 4.1 mmol/L 3.5 - 5.1 mmol/L [facility] Work Phone: Sodium [Moles/Vol] 131 mmol/L Low 135 - 145 mmol/L [facility] Work Phone: Urea nitrogen (BldV) [Mass/Vol] 34 mg/dL High 7 - 20 mg/dL [facility] Work Phone: CBC auto differentialOrdered By: Michelle Petty on 06-24-2021 Absolute Baso # 0.1 10*3/uL 0.0 - 0.2 10*3/uL [facility] Work Phone: 22 Absolute Eos # 0.4 10*3/uL 0.0 - 0.5 10*3/uL [facility] Work Phone: 22 Absolute Lymph # 0.7 10*3/uL Low 1.0 - 4.3 10*3/uL [facility] Work Phone: 22 Absolute [place] # 0.9 10*3/uL High 0.0 - 0.8 10*3/uL [facility] Work Phone: 22 Absolute Neut # 5.2 10*3/uL 1.8 - 7.0 10*3/uL [facility] Work Phone: [phone] Basophils/100 WBC (Bld) 0.8 % 0.0 - 2.0 % [facility] Work Phone: 22 Eosinophils/100 WBC (Bld) 5.0 % 1.0 - 6.0 % [facility] Work Phone: 22 Granulocytes/100 WBC (Bld) 72.8 % 40.0 - 80.0 % [facility] Work Phone: [phone] Hematocrit (Bld) [Volume fraction] 30.3 % Low 35.0 - 47.0 % [facility] Work Phone: 22 Hemoglobin.gastrointes tinal spec 1 Ql (Stl) 9.8 g/dL Low 11.7 - 16.0 g/dL [facility] Work Phone: Interpretation and review of laboratory results Abnormal [facility] Work Phone: 22 Lymphocytes/100 WBC (Bld) 9.5 % Low 20.0 - 40.0 % [facility] Work Phone: MCH (RBC) [Entitic mass] 23.8 pg Low 26.0 - 34.0 pg [facility] Work Phone: MCHC (RBC) [Mass/Vol] 32.4 % 32.0 - 36.0 % [facility] Work Phone: MCV (RBC) [Entitic vol] 73.6 fL Low 79.0 - 98.0 fL [facility] Work Phone: Monocytes/100 WBC (Bld) 11.9 % High 2.0 - 10.0 % [facility] Work Phone: Platelet distribution width (Bld) [Ratio] 24.2 % High 11.5 - 14.5 % [facility] Work Phone: Platelet mean volume (Bld) [Entitic vol] 8.6 fL 7.4 - 10.4 fL [facility] Work Phone: 22 Platelets (Bld) [#/Vol] 153 10*3/uL 140 - 440 10*3/uL [facility] Work Phone: RBC (Bld) [#/Vol] 4.12 10*6/uL 3.80 - 5.2 0 10*6/uL [facility] Work Phone: WBC (Bld) [#/Vol] 7.2 10*3/uL 3.6 - 10.7 10*3/uL [facility] Work Phone: 22 [facility] Work Phone: [facility]: CULT./ST. RESPIRATORYon -2 CULT./ST. RESPIRATORY Normal [facility] Comment on above: Performed By: #### S /GRM ####[facility] [address] [place] [address]#### CS/RE ####[facility] [address] [place] [address]Zdysr [facility] [address] [place], [place] [id number] Calcium,Ionizedon 06-24-2021 Ionized Ca,Measured 3.80 mg/dL Low 4.30-5.20 [facility] Comment on above: Performed By: #### B MP3M, PHOS3, LFT3, ICA, MG3, HEMDF ####[address] [place], [place] pH, Ionized Calcium 7.40 Normal 7.31-7.46 [facility] Comment on above: Performed By: #### B MP3M, PHOS3, LFT3, ICA, MG3, HEMDF ####[address] [place], [place] Culture, RespiratoryOrdered By: Jethro Hutchison on 06-24-2021 Interpretation and review of laboratory results Abnormal [facility] Work Phone: [phone] Respiratory Culture Few normal respirato ry pretty. Abnormal [facility] Work Phone: [phone] Respiratory Culture Staphylococcus aureus Abnormal [facility] Work Phone: [phone] Respiratory Culture [facility] Work Phone: [phone] [facility] Work Phone: [phone] [facility] Work Phone: Glucose,Bedsideon 06-24-2021 Glucose [Mass/Vol] 189 mg/dL High 70-100 [facility] Comment on above: Result Comment: Test performed by glucose meter. Results may be 10%-15% lowerthan serum/plasma values. (CLIA ID [id number]) Performed By: #### B GLU ####[address] [place] [address] Glucose [Mass/Vol] 148 mg/dL High 70-100 [facility] Comment on above: Result Comment: Test performed by glucose meter. Results may be 10%-15% lowerthan serum/plasma values. (CLIA ID [id number]) Performed By: #### B GLU ####[address] [place], [place] Glucose [Mass/Vol] 222 mg/dL High 70-100 [facility] Comment on above: Result Comment: Test performed by glucose meter. Results may be 10%-15% lowerthan serum/plasma values. (CLIA ID [id number]) Performed By: #### B GLU ####[address] [place] Glucose [Mass/Vol] 214 mg/dL [facility] 70-100 [facility] Comment on above: Result Comment: Test performed by glucose meter. Results may be 10%-15% lowerthan serum/plasma values. (CLIA ID [id number]) Performed By: #### B GLU ####[facility] [address] [address] [place] Glucose [Mass/Vol] 144 mg/dL [facility] 70-100 [facility] Comment on above: Result Comment: Test performed by glucose meter. Results may be 10%-15% lowerthan serum/plasma values. (CLIA ID [id number]) Performed By: #### B GLU ####[address] [place], [place] Hemogram w/ Autodiffon 06-24 Abs Baso Cnt 0.1 10*3/uL Normal 0.0-0.2 [facility] Comment on above: Performed By: #### B MP3M, PHOS3, LFT3, ICA, MG3, HEMDF ####[facility] [address] [place] Abs Neutrophile Cnt 5.2 10*3/uL Normal 1.8-7.0 [facility] Comment on above: Performed By: #### B MP3M, PHOS3, LFT3, ICA, MG3, HEMDF ####[address] [place] Basophils/100 WBC (Bld) 0.8 % Normal 0.0-2.0 [facility] Comment on above: Performed By: #### B MP3M, PHOS3, LFT3, ICA, MG3, HEMDF ####[address] [place], [place] Eosinophils (Bld) [#/Vol] 0.4 10*3/uL Normal 0.0-0.5 [facility] Comment on above: Performed By: #### B MP3M, PHOS3, LFT3, ICA, MG3, HEMDF ####[address] [place], [place] Eosinophils/100 WBC (Bld) 5.0 % Normal 1.0-6.0 [facility] Comment on above: Performed By: #### B MP3M, PHOS3, LFT3, ICA, MG3, HEMDF ####[address] [place], [place] Erythrocyte distribution width (RBC) [Ratio] 24.2 % High 11.5-14.5 [facility] Comment on above: Performed By: #### B MP3M, PHOS3, LFT3, ICA, MG3, HEMDF ####[address] [place], [place] Granulocytes/100 WBC (Bld) 72.8 % Normal 40.0-80.0 [facility] Comment on above: Performed By: #### B MP3M, PHOS3, LFT3, ICA, MG3, HEMDF ####[address] [place], [place] Hematocrit (Bld) [Volume fraction] 30.3 % Low 35.0-47.0 [facility] Comment on above: Performed By: #### B MP3M, PHOS3, LFT3, ICA, MG3, HEMDF ####[address] [place], [place] Hemoglobin (Bld) [Mass/Vol] 9.8 g/dL Low 11.7-16.0 [facility] Comment on above: Performed By: #### B MP3M, PHOS3, LFT3, ICA, MG3, HEMDF ####[address] [place], [place] Lymphocytes (Bld) [#/Vol] 0.7 10*3/uL Low 1.0-4.3 [facility] Comment on above: Performed By: #### B MP3M, PHOS3, LFT3, ICA, MG3, HEMDF ####[address] Lymphocytes/100 WBC (Bld) 9.5 % Low 20.0-40.0 [facility] Comment on above: Performed By: #### B MP3M, PHOS3, LFT3, ICA, MG3, HEMDF ####[address] MCH (RBC) [Entitic mass] 23.8 pg Low 26.0-34.0 [facility] Comment on above: Performed By: #### B MP3M, PHOS3, LFT3, ICA, MG3, HEMDF ####[address] MCHC 32.4 % Normal 32.0-36.0 [facility] Comment on above: Performed By: #### B MP3M, PHOS3, LFT3, ICA, MG3, HEMDF ####[address] MCV (RBC) [Entitic vol] 73.6 fL Low 79.0-98.0 [facility] Comment on above: Performed By: #### B MP3M, PHOS3, LFT3, ICA, MG3, HEMDF ####[address] Monocytes (Bld) [#/Vol] 0.9 10*3/uL High 0.0-0.8 [facility] Comment on above: Performed By: #### B MP3M, PHOS3, LFT3, ICA, MG3, HEMDF ####[address] [place] Monocytes/100 WBC (Bld) 11.9 % High 2.0-10.0 [facility] Comment on above: Performed By: #### B MP3M, PHOS3, LFT3, ICA, MG3, HEMDF ####[address] [place] Platelet mean volume (Bld) [Entitic vol] 8.6 fL Normal 7.4-10.4 [facility] Comment on above: Performed By: #### B MP3M, PHOS3, LFT3, ICA, MG3, HEMDF ####[address] [place], [place] Platelets (Bld) [#/Vol] 153 10*3/uL Normal 140-440 [facility] Comment on above: Performed By: #### B MP3M, PHOS3, LFT3, ICA, MG3, HEMDF ####[address] [place], [place] RBC (Bld) [#/Vol] 4.12 10*6/uL Normal 3.80-5.20 [facility] Comment on above: Performed By: #### B MP3M, PHOS3, LFT3, ICA, MG3, HEMDF ####[address] [place], [place] WBC (Bld) [#/Vol] 7.2 10*3/uL Normal 3.6-10.7 [facility] Comment on above: Performed By: #### B MP3M, PHOS3, LFT3, ICA, MG3, HEMDF ####[address] [place], [place] Hepatic Functionon 1 ALP [Catalytic activity/Vol] 112 U/L Normal 38-126 [facility] Comment on above: Result Comment: Slig htly hemolysed, interpret with caution. Performed By: #### B MP3M, PHOS3, LFT3, ICA, MG3, HEMDF ####[address] [place], [place] ALT [Catalytic activity/Vol] 57 U/L High 0-34 [facility] Comment on above: Result Comment: The ALT test is performed by an updated assay method.Please note that the reference intervals have beenchanged and are now sex specific. Performed By: #### B MP3M, PHOS3, LFT3, ICA, MG3, HEMDF ####[address] [place], [place] AST [Catalytic activity/Vol] 46 U/L Normal 15-46 [facility] Comment on above: Result Comment: Slig htly hemolysed, interpret with caution. Performed By: #### B MP3M, PHOS3, LFT3, ICA, MG3, HEMDF ####[address] [place] Bilirubin [Mass/Vol] 0.7 mg/dL Normal 0.2-1.3 [facility] Comment on above: Performed By: #### B MP3M, PHOS3, LFT3, ICA, MG3, HEMDF ####[address] [place] Bilirubin.indirect [Mass/Vol] 0.0 mg/dL Normal 0.0-0.3 [facility] Comment on above: Performed By: #### B MP3M, PHOS3, LFT3, ICA, MG3, HEMDF ####[address] [place] Protein [Mass/Vol] 6.6 g/dL Normal 6.3-8.2 [facility] Comment on above: Performed By: #### B MP3M, PHOS3, LFT3, ICA, MG3, HEMDF ####[address] [place] Albumin [Mass/Vol] 2.9 g/dL Low 3.5-5.0 [facility] Comment on above: Performed By: #### B MP3M, PHOS3, LFT3, ICA, MG3, HEMDF ####[address] [place] [address] Hepatic Function PanelOrdere d By: Michelle Petty on 06-24-2021 Albumin [Mass/Vol] 2.9 g/dL Low 3.5 - 5.0 g/dL [facility] Work Phone: ALP (Bld) [Catalytic activity/Vol] 112 U/L 38 - 126 U/L [facility] Work Phone: ALT [Catalytic activity/Vol] 57 U/L High 0 - 34 U/L [facility] Work Phone: AST [Catalytic activity/Vol] 46 U/L 15 - 46 U/L [facility] Work Phone: Bilirubin [Mass/Vol] 0.7 mg/dL 0.2 - 1 .3 mg/dL [facility] Work Phone: Bilirubin.indirect [Mass/Vol] 0.0 mg/dL 0.0 - 0.3 mg/dL [facility] Work Phone: Free PSA/Total PSA [Mass fraction] 6.6 g/dL 6.3 - 8.2 g/dL [facility] Work Phone: Ionized CalciumOrdered By: Agusto Petty on 06-24-2021 Interpretation and review of laboratory results Abnormal [facility] Work Phone: Ionized Ca 3.80 mg/dL Low 4.30 - 5.20 mg/dL [facility] Work Phone: pH (Bld) 7.40 [pH] [facility] Work Phone: [facility] Work Phone: [facility] Work Phone: Magnesiumon 06-24-2021 Magnesium [Mass/Vol] 2.0 mg/dL Normal 1.6-2.3 [facility] [employer] [facility] Comment on above: Result Comment: Slig htly hemolysed, interpret with caution. Performed By: #### B MP3M, PHOS3, LFT3, ICA, MG3, HEMDF ####[facility] [address] [place] [address] MagnesiumOrdered By: Michelle lauren on 06-24-2021 Magnesium [Mass/Vol] 2.0 mg/dL 1.6 - 2 .3 mg/dL [facility] Work Phone: [phone] Panel InformationOrdered By: Michelle Petty on 06-24-2021 Interpretation and review of laboratory results Abnormal [facility] Work Phone: [phone] [facility] Work Phone: [phone] [facility] Work Phone: [phone] Osmolality, UrineOrdered By: Tello Sterling on 06-24-2021 Interpretation and review of laboratory results Abnormal [facility] Work Phone: [phone] Osmolality, Ur 165 mosm/kg Low 300 - 1000 mosm/kg [facility] Work Phone: [phone] [facility] Work Phone: [phone] [facility] Work Phone: [phone] Osmolality,Urineon Osmolality,Urine 165 mosm/kg Low 300-1000 [facility] Comment on above: Performed By: #### O SMUR ####[address] [place] [address]#### NAURR ####[address] [place] [address] POCT GlucoseOrdered By: Jessica Soni on 06-24-2021 Glucose [Mass/Vol] 189 mg/dL High 70 - 100 mg/dL [facility] Work Phone: [phone] Interpretation and review of laboratory results Abnormal [facility] Work Phone: [phone] [facility] Work Phone: [phone] [facility] Work Phone: [phone] Glucose [Mass/Vol] 148 mg/dL High 70 - 100 mg/dL [facility] Work Phone: [phone] Interpretation and review of laboratory results Abnormal [facility] Work Phone: [phone] [facility] Work Phone: [phone] [facility] Work Phone: [phone] Glucose [Mass/Vol] 222 mg/dL High 70 - 100 mg/dL [facility] Work Phone: [phone] Interpretation and review of laboratory results Abnormal [facility] Work Phone: [phone] [facility] Work Phone: [phone] [facility] Work Phone: [phone] Glucose [Mass/Vol] 214 mg/dL High 70 - 100 mg/dL [facility] Work Phone: [phone] Interpretation and review of laboratory results Abnormal [facility] Work Phone: [phone] [facility] Work Phone: [phone] [facility] Work Phone: [phone] Glucose [Mass/Vol] 144 mg/dL High 70 - 100 mg/dL [facility] Work Phone: [phone] Interpretation and review of laboratory results Abnormal [facility] Work Phone: [phone] [facility] Work Phone: [phone] [facility] Work Phone: [phone] Phosphoruson 06-24-2021 Phosphate [Mass/Vol] 3.9 mg/dL Normal 2.5-4.5 [facility] Comment on above: Result Comment: Slig htly hemolysed, interpret with caution. Performed By: #### B MP3M, PHOS3, LFT3, ICA, MG3, HEMDF ####[address] [place] PhosphorusOrdered By: Michelle pearson on 06-24-2021 Phosphate [Mass/Vol] 3.9 mg/dL 2.5 - 4 .5 mg/dL [facility] Work Phone: [phone] Sodium, Ur Randomon 06-24-20 21 Sodium, Ur Random < 5 Low 30-90 [facility] Comment on above: Performed By: #### O SMUR ####[facility] [address] [place] [address]#### NAURR ####[employer] [employer] [place], [place] Sodium, Urine, RandomOrdered By: Tello Sterling on 06-24-2021 Interpretation and review of laboratory results Abnormal [facility] Work Phone: [phone] Sodium (U) [Moles/Vol] mmol/L Low 30 - 90 mmol/L [facility] Work Phone: [phone] [facility] Work Phone: [phone] [facility] Work Phone: [phone] Transferrinon 06-24-2021 Transferrin [Mass/Vol] 220 mg/dL Normal 206-381 [facility] Comment on above: Performed By: #### F EIBC ####[facility] [place], [place] #### TRFN ####[facility] [facility] [place] [address] TransferrinOrdered By: Kyung Wong on 06-24-2021 Transferrin [Mass/Vol] 220 mg/dL 206 - 381 mg/dL [facility] Work Phone: [phone] [facility] Work Phone: [phone] [facility] Work Phone: [phone] Add On Lab TestOrdered By: Gaudencio Wong on 06-23-2021 Add On Rejected [facility] Work Phone: [phone] [place] [facility] Work Phone: [phone] [facility]: [phone] Add on test from HISon 06-23 Add on test from HIS Rejected Normal [facility] Comment on above: Result Comment: No s pecimen available for addon.Need a yellow top and a green top drawn and orders put in forthe iron and tibc, and transferrin. Spoke with Michelle 11: Performed By: #### A DDON ####[facility] [place], [place] Basic Metabolic Panelon - Anion gap [Moles/Vol] 7 mmol/L Normal 3-13 [facility] Comment on above: Performed By: #### I CA, LFT3, MG3, PHOS3, BMP3M, RBCMO, HEMDF ####[facility] [place], [place] CO2 [Moles/Vol] 27 mmol/L Normal 22-30 [facility] Comment on above: Performed By: #### I CA, LFT3, MG3, PHOS3, BMP3M, RBCMO, HEMDF ####[id number] [place] [address] Chloride [Moles/Vol] 98 mmol/L Normal 98-107 [facility] Comment on above: Performed By: #### I CA, LFT3, MG3, PHOS3, BMP3M, RBCMO, HEMDF ####[id number] [place] [address] Sodium [Moles/Vol] 132 mmol/L Low 135-145 [facility] Comment on above: Performed By: #### I CA, LFT3, MG3, PHOS3, BMP3M, RBCMO, HEMDF ####[id number] [place], [place] Calcium [Mass/Vol] 8.4 mg/dL Normal 8.4-10.4 [facility] Comment on above: Performed By: #### I CA, LFT3, MG3, PHOS3, BMP3M, RBCMO, HEMDF ####[id number] [place], [place] Glucose [Mass/Vol] 138 mg/dL High 70-100 [facility] Comment on above: Performed By: #### I CA, LFT3, MG3, PHOS3, BMP3M, RBCMO, HEMDF ####[id number] [place], [place] Urea nitrogen [Mass/Vol] 31 mg/dL High 7-20 [facility] Comment on above: Performed By: #### I CA, LFT3, MG3, PHOS3, BMP3M, RBCMO, HEMDF ####[id number] [place] [address] Creatinine [Mass/Vol] 0.95 mg/dL Normal 0.52-1.25 [facility] Comment on above: Performed By: #### I CA, LFT3, MG3, PHOS3, BMP3M, RBCMO, HEMDF ####[id number] [place] [address] GFR/1.73 sq M.predicted among blacks MDRD (S/P/Bld) [Vol rate/Area] 79.1 mL/min/{1.73_m2} Normal >60 [facility] Comment on above: Performed By: #### I CA, LFT3, MG3, PHOS3, BMP3M, RBCMO, HEMDF ####[employer] [facility] [place], [place] GFR/1.73 sq M.predicted among non-blacks MDRD (S/P/Bld) [Vol rate/Area] 68.2 mL/min/{1.73_m2} Normal >60 [facility] Comment on above: Result Comment: KDIG O guidelines provide the following GFR categories:Stage GFR(ml/min/1.73 m2) TermsG1 >=90 Normal or highG2 60-89 Mildly decreased*G3a 45-59 Mildly to moderately xaahbmsohL6g 30-44 Moderately to severely decreasedG4 15-29 Severely decreasedG5 <15 Kidney failure*Relative to young adult level.In the absence of evidence of kidney damage, neither GFRcategory G1 nor G2 fulfill the criteria for CKD.The CKD-EPI equation is validated in individuals 18 yearsof age and older. Currently the best equation forestimating glomerular filtration rate (GFR) from serumcreatinine in children is the Bedside Arechiga equation.It is less accurate in patients with extremes of musclemass, restriction of dietary protein, ingestion of creatine,extra-renal metabolism of creatinine, or treatment withmedications that affect renal tubular creatinine secretion. Performed By: #### I CA, LFT3, MG3, PHOS3, BMP3M, RBCMO, HEMDF ####[employer] [facility] [place] Potassium [Moles/Vol] 3.7 mmol/L Normal 3.5-5.1 [facility] Comment on above: Performed By: #### I CA, LFT3, MG3, PHOS3, BMP3M, RBCMO, HEMDF ####[facility] [employer] [address] [place], [place] Basic Metabolic Panel w/ Ref kaitlin to MGOrdered By: Michelle Petty on 06-23-2021 Anion gap [Moles/Vol] 7 mmol/L 3 - 13 mmol/L [facility] Work Phone: [phone] Calcium [Mass/Vol] 8.4 mg/dL 8.4 - 10. 4 mg/dL [facility] Work Phone: [phone] Chloride [Moles/Vol] 98 mmol/L 98 - 10 7 mmol/L [facility] Work Phone: [phone] CO2 [Moles/Vol] 27 mmol/L 22 - 30 mmol/L [facility] Work Phone: [phone] Creatinine [Mass/Vol] 0.95 mg/dL 0.52 - 1.25 mg/dL [facility] Work Phone: [phone] IF NonAfrican [place] 68.2 mL/min >60 [facility] Work Phone: [phone] GFR/1.73 sq M.predicted among blacks MDRD (S/P/Bld) [Vol rate/Area] 79.1 mL/min/{1.73_m2} >60 [facility] Work Phone: [phone] Glucose [Mass/Vol] 138 mg/dL High 70 - 100 mg/dL [facility] Work Phone: [phone] Interpretation and review of laboratory results Abnormal [facility] Work Phone: [phone] Potassium [Moles/Vol] 3.7 mmol/L 3.5 - 5.1 mmol/L [facility] Work Phone: [phone] Sodium [Moles/Vol] 132 mmol/L Low 135 - 145 mmol/L [facility] Work Phone: [phone] Urea nitrogen (BldV) [Mass/Vol] 31 mg/dL High 7 - 20 mg/dL [facility] Work Phone: [phone] [facility] Work Phone: [phone] [facility] Work Phone: [phone] CBC auto differentialOrdered By: Michelle Petty on 06-23-2021 Absolute Baso # 0.1 10*3/uL 0.0 - 0.2 10*3/uL [facility] Work Phone: [phone] Absolute Eos # 0.4 10*3/uL 0.0 - 0.5 10*3/uL [facility] Work Phone: [phone] Absolute Lymph # 0.9 10*3/uL Low 1.0 - 4.3 10*3/uL [facility] Work Phone: [phone] Absolute [place] # 1.2 10*3/uL High 0.0 - 0.8 10*3/uL [facility] Work Phone: [phone] Absolute Neut # 7.0 10*3/uL 1.8 - 7.0 10*3/uL [facility] Work Phone: [phone] Basophils/100 WBC (Bld) 0.7 % 0.0 - 2.0 % [facility] Work Phone: [phone] Eosinophils/100 WBC (Bld) 4.1 % 1.0 - 6.0 % [facility] Work Phone: Granulocytes/100 WBC (Bld) 73.5 % 40.0 - 80.0 % [facility] Work Phone: Hematocrit (Bld) [Volume fraction] 32.4 % Low 35.0 - 47.0 % [facility] Work Phone: [phone] Hemoglobin.gastrointes tinal spec 1 Ql (Stl) 10.5 g/dL Low 11.7 - 16.0 g/dL [facility] Work Phone: [phone] Interpretation and review of laboratory results Abnormal [employer] Work Phone: [phone] Lymphocytes/100 WBC (Bld) 9.1 % Low 20.0 - 40.0 % [facility] Work Phone: MCH (RBC) [Entitic mass] 24.1 pg Low 26.0 - 34.0 pg [facility] Work Phone: MCHC (RBC) [Mass/Vol] 32.3 % 32.0 - 36.0 % [facility] Work Phone: 1 MCV (RBC) [Entitic vol] 74.8 fL Low 79.0 - 98.0 fL [facility] Work Phone: [phone] Monocytes/100 WBC (Bld) 12.6 % High 2.0 - 10.0 % [facility] Work Phone: Platelet distribution width (Bld) [Ratio] 23.9 % High 11.5 - 14.5 % [facility] Work Phone: [phone] Platelet mean volume (Bld) [Entitic vol] 8.7 fL 7.4 - 10.4 fL [facility] Work Phone: [phone] Platelets (Bld) [#/Vol] 148 10*3/uL 140 - 440 10*3/uL [employer] Work Phone: [phone] RBC (Bld) [#/Vol] 4.33 10*6/uL 3.80 - 5.2 0 10*6/uL [employer] Work Phone: [phone] WBC (Bld) [#/Vol] 9.5 10*3/uL 3.6 - 10.7 10*3/uL [employer] Work Phone: [phone] [employer] Work Phone: [phone] [employer] Work Phone: [phone] Calcium,Ionizedon 06-23-2021 Ionized Ca,Measured 3.90 mg/dL Low 4.30-5.20 [facility] Comment on above: Performed By: #### I CA, LFT3, MG3, PHOS3, BMP3M, RBCMO, HEMDF ####[employer] [employer] [place], [place] pH, Ionized Calcium 7.56 High 7.31-7.46 [facility] Comment on above: Performed By: #### I CA, LFT3, MG3, PHOS3, BMP3M, RBCMO, HEMDF ####[employer] [employer] [place], [place] Glucose,Bedsideon 06-23-2021 Glucose [Mass/Vol] 199 mg/dL High 70-100 [facility] [employer] Comment on above: Result Comment: Test performed by glucose meter. Results may be 10%-15% lowerthan serum/plasma values. (CLIA ID [id number]) Performed By: #### B GLU ####[employer] [place] Hemogram w/ Autodiffon 06-23 Abs Baso Cnt 0.1 10*3/uL Normal 0.0-0.2 [facility] Comment on above: Performed By: #### I CA, LFT3, MG3, PHOS3, BMP3M, RBCMO, HEMDF ####[address] Abs Neutrophile Cnt 7.0 10*3/uL Normal 1.8-7.0 [facility] Comment on above: Performed By: #### I CA, LFT3, MG3, PHOS3, BMP3M, RBCMO, HEMDF ####[address] Basophils/100 WBC (Bld) 0.7 % Normal 0.0-2.0 [facility] Comment on above: Performed By: #### I CA, LFT3, MG3, PHOS3, BMP3M, RBCMO, HEMDF ####[address] Eosinophils (Bld) [#/Vol] 0.4 10*3/uL Normal 0.0-0.5 [facility] Comment on above: Performed By: #### I CA, LFT3, MG3, PHOS3, BMP3M, RBCMO, HEMDF ####[address] Eosinophils/100 WBC (Bld) 4.1 % Normal 1.0-6.0 [facility] Comment on above: Performed By: #### I CA, LFT3, MG3, PHOS3, BMP3M, RBCMO, HEMDF ####[address] Erythrocyte distribution width (RBC) [Ratio] 23.9 % High 11.5-14.5 [facility] Comment on above: Performed By: #### I CA, LFT3, MG3, PHOS3, BMP3M, RBCMO, HEMDF ####[address] Granulocytes/100 WBC (Bld) 73.5 % Normal 40.0-80.0 [facility] Comment on above: Performed By: #### I CA, LFT3, MG3, PHOS3, BMP3M, RBCMO, HEMDF ####[address] Hematocrit (Bld) [Volume fraction] 32.4 % Low 35.0-47.0 [facility] Comment on above: Performed By: #### I CA, LFT3, MG3, PHOS3, BMP3M, RBCMO, HEMDF ####[id number] [place], [place] Hemoglobin (Bld) [Mass/Vol] 10.5 g/dL Low 11.7-16.0 [facility] Comment on above: Performed By: #### I CA, LFT3, MG3, PHOS3, BMP3M, RBCMO, HEMDF ####[id number] [place], [place] Lymphocytes (Bld) [#/Vol] 0.9 10*3/uL Low 1.0-4.3 [facility] Comment on above: Performed By: #### I CA, LFT3, MG3, PHOS3, BMP3M, RBCMO, HEMDF ####[address] Lymphocytes/100 WBC (Bld) 9.1 % Low 20.0-40.0 [facility] Comment on above: Performed By: #### I CA, LFT3, MG3, PHOS3, BMP3M, RBCMO, HEMDF ####[id number] [place], [place] MCH (RBC) [Entitic mass] 24.1 pg Low 26.0-34.0 [facility] Comment on above: Performed By: #### I CA, LFT3, MG3, PHOS3, BMP3M, RBCMO, HEMDF ####[id number] [place], [place] MCHC 32.3 % Normal 32.0-36.0 [facility] Comment on above: Performed By: #### I CA, LFT3, MG3, PHOS3, BMP3M, RBCMO, HEMDF ####[address] [place] [address], [place] MCV (RBC) [Entitic vol] 74.8 fL Low 79.0-98.0 [facility] Comment on above: Performed By: #### I CA, LFT3, MG3, PHOS3, BMP3M, RBCMO, HEMDF ####[id number] [place], [place] Monocytes (Bld) [#/Vol] 1.2 10*3/uL High 0.0-0.8 [facility] Comment on above: Performed By: #### I CA, LFT3, MG3, PHOS3, BMP3M, RBCMO, HEMDF ####[address] Monocytes/100 WBC (Bld) 12.6 % High 2.0-10.0 [facility] Comment on above: Performed By: #### I CA, LFT3, MG3, PHOS3, BMP3M, RBCMO, HEMDF ####[address] Platelet mean volume (Bld) [Entitic vol] 8.7 fL Normal 7.4-10.4 [facility] Comment on above: Performed By: #### I CA, LFT3, MG3, PHOS3, BMP3M, RBCMO, HEMDF ####[id number] [place], [place] Platelets (Bld) [#/Vol] 148 10*3/uL Normal 140-440 [facility] Comment on above: Performed By: #### I CA, LFT3, MG3, PHOS3, BMP3M, RBCMO, HEMDF ####[address] RBC (Bld) [#/Vol] 4.33 10*6/uL Normal 3.80-5.20 [facility] Comment on above: Performed By: #### I CA, LFT3, MG3, PHOS3, BMP3M, RBCMO, HEMDF ####[address] WBC (Bld) [#/Vol] 9.5 10*3/uL Normal 3.6-10.7 [facility] Comment on above: Performed By: #### I CA, LFT3, MG3, PHOS3, BMP3M, RBCMO, HEMDF ####[address] [place], [place] Hepatic Functionon 1 ALT [Catalytic activity/Vol] 72 U/L High 0-34 [facility] Comment on above: Result Comment: The ALT test is performed by an updated assay method.Please note that the reference intervals have beenchanged and are now sex specific. Performed By: #### I CA, LFT3, MG3, PHOS3, BMP3M, RBCMO, HEMDF ####[id number] [place], [place] ALP [Catalytic activity/Vol] 116 U/L Normal 38-126 [facility] Comment on above: Performed By: #### I CA, LFT3, MG3, PHOS3, BMP3M, RBCMO, HEMDF ####[address] AST [Catalytic activity/Vol] 50 U/L High 15-46 [facility] Comment on above: Performed By: #### I CA, LFT3, MG3, PHOS3, BMP3M, RBCMO, HEMDF ####[address] [place], [place] Bilirubin [Mass/Vol] 0.6 mg/dL Normal 0.2-1.3 [facility] Comment on above: Performed By: #### I CA, LFT3, MG3, PHOS3, BMP3M, RBCMO, HEMDF ####[address] [place], [place] Bilirubin.indirect [Mass/Vol] 0.0 mg/dL Normal 0.0-0.3 [facility] Comment on above: Performed By: #### I CA, LFT3, MG3, PHOS3, BMP3M, RBCMO, HEMDF ####[address] [place] [address] Protein [Mass/Vol] 6.3 g/dL Normal 6.3-8.2 [facility] Comment on above: Performed By: #### I CA, LFT3, MG3, PHOS3, BMP3M, RBCMO, HEMDF ####[facility] [employer] [id number] [place] [address] Albumin [Mass/Vol] 2.9 g/dL Low 3.5-5.0 [facility] Comment on above: Performed By: #### I CA, LFT3, MG3, PHOS3, BMP3M, RBCMO, HEMDF ####[facility] [employer] [id number] [place] [address] Hepatic Function PanelOrdere d By: Michelle Petty on 06-23-2021 Albumin [Mass/Vol] 2.9 g/dL Low 3.5 - 5.0 g/dL [facility] Work Phone: [phone] ALP (Bld) [Catalytic activity/Vol] 116 U/L 38 - 126 U/L [facility] Work Phone: [phone] ALT [Catalytic activity/Vol] 72 U/L High 0 - 34 U/L [facility] Work Phone: [phone] AST [Catalytic activity/Vol] 50 U/L High 15 - 46 U/L [facility] Work Phone: [phone] Bilirubin [Mass/Vol] 0.6 mg/dL 0.2 - 1 .3 mg/dL [facility] Work Phone: Bilirubin.indirect [Mass/Vol] 0.0 mg/dL 0.0 - 0.3 mg/dL [facility] Work Phone: [phone] Free PSA/Total PSA [Mass fraction] 6.3 g/dL 6.3 - 8.2 g/dL [facility] Work Phone: [phone] Interpretation and review of laboratory results Abnormal [facility] Work Phone: [phone] Ionized CalciumOrdered By: Agusto Petty on 06-23-2021 Interpretation and review of laboratory results Abnormal [facility] Work Phone: [phone] Ionized Ca 3.90 mg/dL Low 4.30 - 5.20 mg/dL [facility] Work Phone: 1 pH (Bld) 7.56 [pH] High [facility] Work Phone: 1 [facility] Work Phone: 1 [facility] Work Phone: 1 Iron AND TIBCon 06-23-2021 Saturation 10 % Low 15-50 [facility] Comment on above: Performed By: #### F EIBC ####[employer] [address] [place] [address]#### TRFN ####[employer] [address] [place] [address] Total Iron Binding Cap. 273 ug/dL Normal 261-497 [facility] Comment on above: Performed By: #### F EIBC ####[facility] [address] [place] [address]#### TRFN ####[employer] [address] [place] [address] Iron, Total 27 ug/dL Low 37-170 [facility] Comment on above: Performed By: #### F EIBC ####[employer] [address] [place] [address]#### TRFN ####[employer] [address] [place] [address] Iron and TIBCOrdered By: Jami Abdalla on 06-23-2021 Interpretation and review of laboratory results Abnormal [facility] Work Phone: [phone] Iron [Mass/Vol] 27 ug/dL Low 37 - 170 ug/dL [facility] Work Phone: [phone] Sat 10 % Low 15 - 50 % [facility] Work Phone: 1 TIBC 273 ug/dL 261 - 497 ug/dL [facility] Work Phone: 1 [facility] Work Phone: 1 [facility] Work Phone: [phone] Magnesiumon 06-23-2021 Magnesium [Mass/Vol] 1.9 mg/dL Normal 1.6-2.3 [facility] Comment on above: Performed By: #### I CA, LFT3, MG3, PHOS3, BMP3M, RBCMO, HEMDF ####[facility] [employer] [id number] [place] [address] MagnesiumOrdered By: Michelle lauren on 06-23-2021 Magnesium [Mass/Vol] 1.9 mg/dL 1.6 - 2 .3 mg/dL [facility] Work Phone: [phone] No Panel InformationOrdered By: Michelle Petty on 06-23-2021 [facility] Work Phone: 1 [facility] Work Phone: 1 POCT GlucoseOrdered By: Jessica Soni on 06-23-2021 Glucose [Mass/Vol] 199 mg/dL High 70 - 100 mg/dL [facility] Work Phone: [phone] Interpretation and review of laboratory results Abnormal [facility] Work Phone: 1 [facility] Work Phone: [facility] Work Phone: 1 Phosphoruson 06-23-2021 Phosphate [Mass/Vol] 3.4 mg/dL Normal 2.5-4.5 [facility] Comment on above: Performed By: #### I CA, LFT3, MG3, PHOS3, BMP3M, RBCMO, HEMDF ####[facility] [employer] [address] [place] [address] PhosphorusOrdered By: Michelle pearson on 06-23-2021 Phosphate [Mass/Vol] 3.4 mg/dL 2.5 - 4 .5 mg/dL [facility] Work Phone: [phone] RBC MORPHOLOGYOrdered By: Samuel Petty on 06-23-2021 Anisocytosis Ql (Bld) Slight [facility] Work Phone: [phone] Elliptocytes Slight [facility] Work Phone: [phone] Microcytosis Slight [facility] Work Phone: Ovalocytes Slight [facility] Work Phone: [phone] Poikilocytes Slight [facility] Work Phone: [phone] Polychromasia Slight [facility] Work [phone] RBC (Bld) [#/Vol] ABNORMAL [facility] Work Phone: [phone] [facility] Work Phone: [phone] [facility] Work Phone: [phone] RBC Morphologyon 06-23-2021 Anisocytosis Ql (Bld) Slight Normal [facility] Comment on above: Performed By: #### I CA, LFT3, MG3, PHOS3, BMP3M, RBCMO, HEMDF ####[id number] [place], [place] Elliptocytes Slight Normal [facility] Comment on above: Performed By: #### I CA, LFT3, MG3, PHOS3, BMP3M, RBCMO, HEMDF ####[address] Microcytosis Slight Normal [facility] Comment on above: Performed By: #### I CA, LFT3, MG3, PHOS3, BMP3M, RBCMO, HEMDF ####[address] Ovalocytes Slight Normal [facility] Comment on above: Performed By: #### I CA, LFT3, MG3, PHOS3, BMP3M, RBCMO, HEMDF ####[address] Poikilocytosis Slight Normal [facility] Comment on above: Performed By: #### I CA, LFT3, MG3, PHOS3, BMP3M, RBCMO, HEMDF ####[address] Polychromasia Slight Normal [facility] Comment on above: Performed By: #### I CA, LFT3, MG3, PHOS3, BMP3M, RBCMO, HEMDF ####[address] RBC morphology finding Nom (Bld) ABNORMAL Normal [facility] Comment on above: Performed By: #### I CA, LFT3, MG3, PHOS3, BMP3M, RBCMO, HEMDF ####[facility] [place], [place] Basic Metabolic Panelon 07-2 Calcium [Mass/Vol] 9.0 mg/dL Normal 8.4-10.4 [facility] Comment on above: Performed By: #### L FT3, HEMDF, BMP3M, MG3, ICA, PHOS3 ####[id number] [place], [place] Anion gap [Moles/Vol] 7 mmol/L Normal 3-13 [facility] Comment on above: Performed By: #### L FT3, HEMDF, BMP3M, MG3, ICA, PHOS3 ####[address] [place], [place] CO2 [Moles/Vol] 30 mmol/L Normal 22-30 [facility] Comment on above: Performed By: #### L FT3, HEMDF, BMP3M, MG3, ICA, PHOS3 ####[address] [place], [place] Creatinine [Mass/Vol] 0.66 mg/dL Normal 0.52-1.25 [facility] Comment on above: Performed By: #### L FT3, HEMDF, BMP3M, MG3, ICA, PHOS3 ####[address] [place], [place] eGFR OTHER > 90.0 Normal >60 [facility] Comment on above: Result Comment: KDIG O guidelines provide the following GFR categories:Stage GFR(ml/min/1.73 m2) TermsG1 >=90 Normal or highG2 60-89 Mildly decreased*G3a 45-59 Mildly to moderately [id number] 30-44 Moderately to severely decreasedG4 15-29 Severely decreasedG5 <15 Kidney failure*Relative to young adult level.In the absence of evidence of kidney damage, neither GFRcategory G1 nor G2 fulfill the criteria for CKD.The CKD-EPI equation is validated in individuals 18 yearsof age and older. Currently the best equation forestimating glomerular filtration rate (GFR) from serumcreatinine in children is the Bedside Arechiga equation.It is less accurate in patients with extremes of musclemass, restriction of dietary protein, ingestion of creatine,extra-renal metabolism of creatinine, or treatment withmedications that affect renal tubular creatinine secretion. Performed By: #### L FT3, HEMDF, BMP3M, MG3, ICA, PHOS3 ####[address] [place], [place] GFR/1.73 sq M.predicted among blacks MDRD (S/P/Bld) [Vol rate/Area] mL/min/{1.73_m2} Normal >60 [facility] Comment on above: Performed By: #### L FT3, HEMDF, BMP3M, MG3, ICA, PHOS3 ####[address] [place] Glucose [Mass/Vol] 147 mg/dL High 70-100 [facility] Comment on above: Performed By: #### L FT3, HEMDF, BMP3M, MG3, ICA, PHOS3 ####[address] [place], [place] Urea nitrogen [Mass/Vol] 31 mg/dL High 7-20 [facility] Comment on above: Performed By: #### L FT3, HEMDF, BMP3M, MG3, ICA, PHOS3 ####[address] [place], [place] Potassium [Moles/Vol] 3.5 mmol/L Normal 3.5-5.1 [facility] Comment on above: Performed By: #### L FT3, HEMDF, BMP3M, MG3, ICA, PHOS3 ####[address] [place] Sodium [Moles/Vol] 132 mmol/L Low 135-145 [facility] Comment on above: Performed By: #### L FT3, HEMDF, BMP3M, MG3, ICA, PHOS3 ####[address] [place] Chloride [Moles/Vol] 96 mmol/L Low 98-107 [facility] Comment on above: Performed By: #### L FT3, HEMDF, BMP3M, MG3, ICA, PHOS3 ####[address] CR Chest Portableon 06-22-20 21 CR Chest Portable Normal [facility] Calcium,Ionizedon 06-22-2021 Ionized Ca,Measured 4.30 mg/dL Normal 4.30-5.20 [facility] Comment on above: Performed By: #### L FT3, HEMDF, BMP3M, MG3, ICA, PHOS3 ####[facility] [employer] [address] pH, Ionized Calcium 7.41 Normal 7.31-7.46 [facility] Comment on above: Performed By: #### L FT3, HEMDF, BMP3M, MG3, ICA, PHOS3 ####[facility] [employer] [address] Glucose,Bedsideon 06-22-2021 Glucose [Mass/Vol] 192 mg/dL High 70-100 [facility] Comment on above: Result Comment: Test performed by glucose meter. Results may be 10%-15% lowerthan serum/plasma values. (CLIA ID [id number]) Performed By: #### B GLU ####[facility] [employer] [id number] [place], [place] Glucose [Mass/Vol] 141 mg/dL [facility] 70-100 [facility] Comment on above: Result Comment: summer child caregiver Notified;Test performed by glucose meter. Results may be 10%-15% lowerthan serum/plasma values. (CLIA ID [id number]) Performed By: #### B GLU ####[facility] [employer] [address] Hemogram w/ Autodiffon 06-22 Abs Baso Cnt 0.0 10*3/uL Normal 0.0-0.2 [facility] Comment on above: Performed By: #### L FT3, HEMDF, BMP3M, MG3, ICA, PHOS3 ####[facility] [employer] [address] Abs Neutrophile Cnt 6.4 10*3/uL Normal 1.8-7.0 [facility] Comment on above: Performed By: #### L FT3, HEMDF, BMP3M, MG3, ICA, PHOS3 ####[id number] [place], [place] Basophils/100 WBC (Bld) 0.1 % Normal 0.0-2.0 [facility] Comment on above: Performed By: #### L FT3, HEMDF, BMP3M, MG3, ICA, PHOS3 ####[address] Eosinophils (Bld) [#/Vol] 0.4 10*3/uL Normal 0.0-0.5 [facility] Comment on above: Performed By: #### L FT3, HEMDF, BMP3M, MG3, ICA, PHOS3 ####[address] Eosinophils/100 WBC (Bld) 4.3 % Normal 1.0-6.0 [facility] Comment on above: Performed By: #### L FT3, HEMDF, BMP3M, MG3, ICA, PHOS3 ####[id number] [place], [place] Erythrocyte distribution width (RBC) [Ratio] 23.2 % High 11.5-14.5 [facility] Comment on above: Performed By: #### L FT3, HEMDF, BMP3M, MG3, ICA, PHOS3 ####[address] Granulocytes/100 WBC (Bld) 74.3 % Normal 40.0-80.0 [facility] Comment on above: Performed By: #### L FT3, HEMDF, BMP3M, MG3, ICA, PHOS3 ####[id number] [place], [place] Hematocrit (Bld) [Volume fraction] 34.7 % Low 35.0-47.0 [facility] Comment on above: Performed By: #### L FT3, HEMDF, BMP3M, MG3, ICA, PHOS3 ####[address] Hemoglobin (Bld) [Mass/Vol] 10.8 g/dL Low 11.7-16.0 [facility] Comment on above: Performed By: #### L FT3, HEMDF, BMP3M, MG3, ICA, PHOS3 ####[address] Lymphocytes (Bld) [#/Vol] 0.8 10*3/uL Low 1.0-4.3 [facility] Comment on above: Performed By: #### L FT3, HEMDF, BMP3M, MG3, ICA, PHOS3 ####[address] Lymphocytes/100 WBC (Bld) 9.0 % Low 20.0-40.0 [facility] Comment on above: Performed By: #### L FT3, HEMDF, BMP3M, MG3, ICA, PHOS3 ####[address] MCH (RBC) [Entitic mass] 23.5 pg Low 26.0-34.0 [facility] Comment on above: Performed By: #### L FT3, HEMDF, BMP3M, MG3, ICA, PHOS3 ####[id number] [place], [place] MCHC 31.2 % Low 32.0-36.0 [facility] Comment on above: Performed By: #### L FT3, HEMDF, BMP3M, MG3, ICA, PHOS3 ####[id number] [place], [place] MCV (RBC) [Entitic vol] 75.5 fL Low 79.0-98.0 [facility] Comment on above: Performed By: #### L FT3, HEMDF, BMP3M, MG3, ICA, PHOS3 ####[id number] [place], [place] Monocytes (Bld) [#/Vol] 1.1 10*3/uL High 0.0-0.8 [facility] Comment on above: Performed By: #### L FT3, HEMDF, BMP3M, MG3, ICA, PHOS3 ####[facility] [place], [place] Monocytes/100 WBC (Bld) 12.3 % High 2.0-10.0 [facility] Comment on above: Performed By: #### L FT3, HEMDF, BMP3M, MG3, ICA, PHOS3 ####[facility] [address] [place], [place] Platelet mean volume (Bld) [Entitic vol] 8.9 fL Normal 7.4-10.4 [facility] Comment on above: Performed By: #### L FT3, HEMDF, BMP3M, MG3, ICA, PHOS3 ####[facility] [address] [place], [place] Platelets (Bld) [#/Vol] 123 10*3/uL Low 140-440 [facility] Comment on above: Performed By: #### L FT3, HEMDF, BMP3M, MG3, ICA, PHOS3 ####[facility] [address] [place], [place] RBC (Bld) [#/Vol] 4.60 10*6/uL Normal 3.80-5.20 [facility] Comment on above: Performed By: #### L FT3, HEMDF, BMP3M, MG3, ICA, PHOS3 ####[facility] [address] [place], [place] WBC (Bld) [#/Vol] 8.7 10*3/uL Normal 3.6-10.7 [facility] Comment on above: Performed By: #### L FT3, HEMDF, BMP3M, MG3, ICA, PHOS3 ####[facility] [id number] [place], [place] Hepatic Functionon 1 ALT [Catalytic activity/Vol] 79 U/L High 0-34 [facility] Comment on above: Result Comment: The ALT test is performed by an updated assay method.Please note that the reference intervals have beenchanged and are now sex specific. Performed By: #### L FT3, HEMDF, BMP3M, MG3, ICA, PHOS3 ####[address] [address] [place] ALP [Catalytic activity/Vol] 127 U/L High 38-126 [facility] Comment on above: Performed By: #### L FT3, HEMDF, BMP3M, MG3, ICA, PHOS3 ####[address] AST [Catalytic activity/Vol] 62 U/L High 15-46 [facility] Comment on above: Performed By: #### L FT3, HEMDF, BMP3M, MG3, ICA, PHOS3 ####[address] [address] [place] Bilirubin [Mass/Vol] 0.8 mg/dL Normal 0.2-1.3 [facility] Comment on above: Performed By: #### L FT3, HEMDF, BMP3M, MG3, ICA, PHOS3 ####[address] Bilirubin.indirect [Mass/Vol] 0.0 mg/dL Normal 0.0-0.3 [facility] Comment on above: Performed By: #### L FT3, HEMDF, BMP3M, MG3, ICA, PHOS3 ####[address] Protein [Mass/Vol] 6.9 g/dL Normal 6.3-8.2 [facility] Comment on above: Performed By: #### L FT3, HEMDF, BMP3M, MG3, ICA, PHOS3 ####[address] Albumin [Mass/Vol] 3.1 g/dL Low 3.5-5.0 [facility] Comment on above: Performed By: #### L FT3, HEMDF, BMP3M, MG3, ICA, PHOS3 ####[id number] [place], [place] Magnesiumon 06-22-2021 Magnesium [Mass/Vol] 2.1 mg/dL Normal 1.6-2.3 [facility] Comment on above: Performed By: #### L FT3, HEMDF, BMP3M, MG3, ICA, PHOS3 ####[id number] [place], [place] POCT GlucoseOrdered By: Jessica Soni on 06-22-2021 Glucose [Mass/Vol] 192 mg/dL High 70 - 100 mg/dL [facility] Work Phone: [phone] Interpretation and review of laboratory results Abnormal [facility] Work Phone: [phone] [facility] Work Phone: [phone] [facility] Work Phone: Phosphoruson 06-22-2021 Phosphate [Mass/Vol] 3.5 mg/dL Normal 2.5-4.5 [facility] Comment on above: Performed By: #### L FT3, HEMDF, BMP3M, MG3, ICA, PHOS3 ####[id number] [place], [place] XR CHEST PORTABLEOrdered By: Checo Kirk on 06-22-2021 [facility] Work Phone: [facility] Work Phone: [facility] Work Phone: Basic Metabolic Panelon 05-31 Anion gap [Moles/Vol] 5 mmol/L Normal 3-13 [facility] Comment on above: Performed By: #### M G3, HEMDF, FERR3, PHOS3, ICA, LDH3, BMP3M, CRP2, LFT3, DDI2 ####[id number] [place], [place] Calcium [Mass/Vol] 8.3 mg/dL Low 8.4-10.4 [facility] Comment on above: Performed By: #### M G3, HEMDF, FERR3, PHOS3, ICA, LDH3, BMP3M, CRP2, LFT3, DDI2 ####[id number] [place], [place] CO2 [Moles/Vol] 31 mmol/L High 22-30 [facility] Comment on above: Performed By: #### M G3, HEMDF, FERR3, PHOS3, ICA, LDH3, BMP3M, CRP2, LFT3, DDI2 ####[id number] [place], [place] Glucose [Mass/Vol] 139 mg/dL High 70-100 [facility] Comment on above: Performed By: #### M G3, HEMDF, FERR3, PHOS3, ICA, LDH3, BMP3M, CRP2, LFT3, DDI2 ####[id number] [place], [place] Urea nitrogen [Mass/Vol] 32 mg/dL High 7-20 [facility] Comment on above: Performed By: #### M G3, HEMDF, FERR3, PHOS3, ICA, LDH3, BMP3M, CRP2, LFT3, DDI2 ####[id number] [place], [place] Creatinine [Mass/Vol] 0.52 mg/dL Normal 0.52-1.25 [facility] Comment on above: Performed By: #### M G3, HEMDF, FERR3, PHOS3, ICA, LDH3, BMP3M, CRP2, LFT3, DDI2 ####[id number] [place], [place] eGFR OTHER > 90.0 Normal >60 [facility] Comment on above: Result Comment: KDIG O guidelines provide the following GFR categories:Stage GFR(ml/min/1.73 m2) TermsG1 >=90 Normal or highG2 60-89 Mildly decreased*G3a 45-59 Mildly to moderately [id number] 30-44 Moderately to severely decreasedG4 15-29 Severely decreasedG5 <15 Kidney failure*Relative to young adult level.In the absence of evidence of kidney damage, neither GFRcategory G1 nor G2 fulfill the criteria for CKD.The CKD-EPI equation is validated in individuals 18 yearsof age and older. Currently the best equation forestimating glomerular filtration rate (GFR) from serumcreatinine in children is the Bedside Arechiga equation.It is less accurate in patients with extremes of musclemass, restriction of dietary protein, ingestion of creatine,extra-renal metabolism of creatinine, or treatment withmedications that affect renal tubular creatinine secretion. Performed By: #### M G3, HEMDF, FERR3, PHOS3, ICA, LDH3, BMP3M, CRP2, LFT3, DDI2 ####[id number] [place], [place] GFR/1.73 sq M.predicted among blacks MDRD (S/P/Bld) [Vol rate/Area] mL/min/{1.73_m2} Normal >60 [facility] Comment on above: Performed By: #### M G3, HEMDF, FERR3, PHOS3, ICA, LDH3, BMP3M, CRP2, LFT3, DDI2 ####[id number] [place], [place] Potassium [Moles/Vol] 4.1 mmol/L Normal 3.5-5.1 [facility] Comment on above: Result Comment: Slig htly hemolysed, interpret with caution. Performed By: #### M G3, HEMDF, FERR3, PHOS3, ICA, LDH3, BMP3M, CRP2, LFT3, DDI2 ####[id number] [place], [place] Sodium [Moles/Vol] 134 mmol/L Low 135-145 [facility] Comment on above: Performed By: #### M G3, HEMDF, FERR3, PHOS3, ICA, LDH3, BMP3M, CRP2, LFT3, DDI2 ####[id number] [place], [place] Chloride [Moles/Vol] 99 mmol/L Normal 98-107 [facility] Comment on above: Performed By: #### M G3, HEMDF, FERR3, PHOS3, ICA, LDH3, BMP3M, CRP2, LFT3, DDI2 ####[id number] [facility] [place] C-Reactive Proteinon 021 CRP [Mass/Vol] 61.5 mg/L High 0.0-6.0 [facility] Comment on above: Result Comment: . Performed By: #### M G3, HEMDF, FERR3, PHOS3, ICA, LDH3, BMP3M, CRP2, LFT3, DDI2 ####[id number] [place], [place] Calcium,Ionizedon 06-21-2021 Ionized Ca,Measured 3.80 mg/dL Low 4.30-5.20 [facility] Comment on above: Performed By: #### M G3, HEMDF, FERR3, PHOS3, ICA, LDH3, BMP3M, CRP2, LFT3, DDI2 ####[address] pH, Ionized Calcium 7.46 Normal 7.31-7.46 [facility] Comment on above: Performed By: #### M G3, HEMDF, FERR3, PHOS3, ICA, LDH3, BMP3M, CRP2, LFT3, DDI2 ####[address] [place], [place] D-Dimer, Innovanceon 021 D-Dimer, Innovance 11.91 mg/L High <0.19-0.50 [facility] Comment on above: Result Comment: Inno carrington D-Dimer values of <0.50 mg/L FEU can be used incombination with a pre-test probability model (e.g. Well's)to exclude pulmonary embolism (PE) disease, as well as jodi in the diagnosis of deep vein thrombosis (DVT). Performed By: #### M G3, HEMDF, FERR3, PHOS3, ICA, LDH3, BMP3M, CRP2, LFT3, DDI2 ####[id number] [place], [place] Ferritinon 06-21-2021 Ferritin [Mass/Vol] 358 ng/mL High 8-252 [facility] Comment on above: Performed By: #### M G3, HEMDF, FERR3, PHOS3, ICA, LDH3, BMP3M, CRP2, LFT3, DDI2 ####[address] [place], [place] Glucose,Bedsideon 06-21-2021 Glucose [Mass/Vol] 155 mg/dL High 70-100 [facility] Comment on above: Result Comment: Test performed by glucose meter. Results may be 10%-15% lowerthan serum/plasma values. (CLIA ID [id number]) Performed By: #### B GLU ####[address] Glucose [Mass/Vol] 134 mg/dL High 70-100 [facility] Comment on above: Result Comment: Test performed by glucose meter. Results may be 10%-15% lowerthan serum/plasma values. (CLIA ID [id number]) Performed By: #### B GLU ####[address] Hemogram w/ Autodiffon 06-21 Abs Baso Cnt 0.0 10*3/uL Normal 0.0-0.2 [facility] Comment on above: Performed By: #### M G3, HEMDF, FERR3, PHOS3, ICA, LDH3, BMP3M, CRP2, LFT3, DDI2 ####[address] Abs Neutrophile Cnt 10.0 10*3/uL High 1.8-7.0 [facility] Comment on above: Performed By: #### M G3, HEMDF, FERR3, PHOS3, ICA, LDH3, BMP3M, CRP2, LFT3, DDI2 ####[address] Basophils/100 WBC (Bld) 0.3 % Normal 0.0-2.0 [facility] Comment on above: Performed By: #### M G3, HEMDF, FERR3, PHOS3, ICA, LDH3, BMP3M, CRP2, LFT3, DDI2 ####[facility] [id number] [place], [place] Eosinophils (Bld) [#/Vol] 0.2 10*3/uL Normal 0.0-0.5 [facility] Comment on above: Performed By: #### M G3, HEMDF, FERR3, PHOS3, ICA, LDH3, BMP3M, CRP2, LFT3, DDI2 ####[address] Eosinophils/100 WBC (Bld) 1.8 % Normal 1.0-6.0 [facility] Comment on above: Performed By: #### M G3, HEMDF, FERR3, PHOS3, ICA, LDH3, BMP3M, CRP2, LFT3, DDI2 ####[address] Erythrocyte distribution width (RBC) [Ratio] 23.4 % High 11.5-14.5 [facility] Comment on above: Performed By: #### M G3, HEMDF, FERR3, PHOS3, ICA, LDH3, BMP3M, CRP2, LFT3, DDI2 ####[address] Granulocytes/100 WBC (Bld) 82.1 % High 40.0-80.0 [facility] Comment on above: Performed By: #### M G3, HEMDF, FERR3, PHOS3, ICA, LDH3, BMP3M, CRP2, LFT3, DDI2 ####[address] Hematocrit (Bld) [Volume fraction] 32.0 % Low 35.0-47.0 [facility] Comment on above: Performed By: #### M G3, HEMDF, FERR3, PHOS3, ICA, LDH3, BMP3M, CRP2, LFT3, DDI2 ####[address] Hemoglobin (Bld) [Mass/Vol] 10.2 g/dL Low 11.7-16.0 [facility] Comment on above: Performed By: #### M G3, HEMDF, FERR3, PHOS3, ICA, LDH3, BMP3M, CRP2, LFT3, DDI2 ####[address] Lymphocytes (Bld) [#/Vol] 0.8 10*3/uL Low 1.0-4.3 [facility] Comment on above: Performed By: #### M G3, HEMDF, FERR3, PHOS3, ICA, LDH3, BMP3M, CRP2, LFT3, DDI2 ####[address] Lymphocytes/100 WBC (Bld) 6.4 % Low 20.0-40.0 [facility] Comment on above: Performed By: #### M G3, HEMDF, FERR3, PHOS3, ICA, LDH3, BMP3M, CRP2, LFT3, DDI2 ####[address] MCH (RBC) [Entitic mass] 23.5 pg Low 26.0-34.0 [facility] Comment on above: Performed By: #### M G3, HEMDF, FERR3, PHOS3, ICA, LDH3, BMP3M, CRP2, LFT3, DDI2 ####[address] MCHC 31.7 % Low 32.0-36.0 [facility] Comment on above: Performed By: #### M G3, HEMDF, FERR3, PHOS3, ICA, LDH3, BMP3M, CRP2, LFT3, DDI2 ####[address] MCV (RBC) [Entitic vol] 74.2 fL Low 79.0-98.0 [facility] Comment on above: Performed By: #### M G3, HEMDF, FERR3, PHOS3, ICA, LDH3, BMP3M, CRP2, LFT3, DDI2 ####[address] Monocytes (Bld) [#/Vol] 1.2 10*3/uL High 0.0-0.8 [facility] Comment on above: Performed By: #### M G3, HEMDF, FERR3, PHOS3, ICA, LDH3, BMP3M, CRP2, LFT3, DDI2 ####[id number] [place] [address] Monocytes/100 WBC (Bld) 9.4 % Normal 2.0-10.0 [facility] Comment on above: Performed By: #### M G3, HEMDF, FERR3, PHOS3, ICA, LDH3, BMP3M, CRP2, LFT3, DDI2 ####[id number] [place], [place] Platelet mean volume (Bld) [Entitic vol] 9.4 fL Normal 7.4-10.4 [facility] Comment on above: Performed By: #### M G3, HEMDF, FERR3, PHOS3, ICA, LDH3, BMP3M, CRP2, LFT3, DDI2 ####[address] Platelets (Bld) [#/Vol] 125 10*3/uL Low 140-440 [facility] Comment on above: Performed By: #### M G3, HEMDF, FERR3, PHOS3, ICA, LDH3, BMP3M, CRP2, LFT3, DDI2 ####[address] RBC (Bld) [#/Vol] 4.32 10*6/uL Normal 3.80-5.20 [facility] Comment on above: Performed By: #### M G3, HEMDF, FERR3, PHOS3, ICA, LDH3, BMP3M, CRP2, LFT3, DDI2 ####[id number] [place], [place] WBC (Bld) [#/Vol] 12.2 10*3/uL High 3.6-10.7 [facility] Comment on above: Performed By: #### M G3, HEMDF, FERR3, PHOS3, ICA, LDH3, BMP3M, CRP2, LFT3, DDI2 ####[id number] [place], [place] Hepatic Functionon 1 ALP [Catalytic activity/Vol] 149 U/L High 38-126 [facility] Comment on above: Result Comment: Slig htly hemolysed, interpret with caution. Performed By: #### M G3, HEMDF, FERR3, PHOS3, ICA, LDH3, BMP3M, CRP2, LFT3, DDI2 ####[id number] [place], [place] ALT [Catalytic activity/Vol] 71 U/L High 0-34 [facility] Comment on above: Result Comment: The ALT test is performed by an updated assay method.Please note that the reference intervals have beenchanged and are now sex specific. Performed By: #### M G3, HEMDF, FERR3, PHOS3, ICA, LDH3, BMP3M, CRP2, LFT3, DDI2 ####[address] AST [Catalytic activity/Vol] 77 U/L High 15-46 [facility] Comment on above: Result Comment: Slig htly hemolysed, interpret with caution. Performed By: #### M G3, HEMDF, FERR3, PHOS3, ICA, LDH3, BMP3M, CRP2, LFT3, DDI2 ####[address] Bilirubin [Mass/Vol] 1.0 mg/dL Normal 0.2-1.3 [facility] Comment on above: Performed By: #### M G3, HEMDF, FERR3, PHOS3, ICA, LDH3, BMP3M, CRP2, LFT3, DDI2 ####[id number] [place], [place] Protein [Mass/Vol] 6.5 g/dL Normal 6.3-8.2 [facility] Comment on above: Performed By: #### M G3, HEMDF, FERR3, PHOS3, ICA, LDH3, BMP3M, CRP2, LFT3, DDI2 ####[address] Bilirubin.indirect [Mass/Vol] 0.0 mg/dL Normal 0.0-0.3 [facility] Comment on above: Performed By: #### M G3, HEMDF, FERR3, PHOS3, ICA, LDH3, BMP3M, CRP2, LFT3, DDI2 ####[address] Albumin [Mass/Vol] 3.0 g/dL Low 3.5-5.0 [facility] Comment on above: Performed By: #### M G3, HEMDF, FERR3, PHOS3, ICA, LDH3, BMP3M, CRP2, LFT3, DDI2 ####[address] LDHon 06-21-2021 LDH 640 U/L High 120-246 [facility] Comment on above: Result Comment: Slig htly hemolysed, interpret with caution. Performed By: #### M G3, HEMDF, FERR3, PHOS3, ICA, LDH3, BMP3M, CRP2, LFT3, DDI2 ####[address] Magnesiumon 06-21-2021 Magnesium [Mass/Vol] 2.2 mg/dL Normal 1.6-2.3 [facility] Comment on above: Result Comment: Slig htly hemolysed, interpret with caution. Performed By: #### M G3, HEMDF, FERR3, PHOS3, ICA, LDH3, BMP3M, CRP2, LFT3, DDI2 ####[address] Phosphoruson 06-21-2021 Phosphate [Mass/Vol] 3.4 mg/dL Normal 2.5-4.5 [facility] Comment on above: Result Comment: Slig htly hemolysed, interpret with caution. Performed By: #### M G3, HEMDF, FERR3, PHOS3, ICA, LDH3, BMP3M, CRP2, LFT3, DDI2 ####[address] [place] Basic Metabolic Panelon 07-2 -2020 Anion gap [Moles/Vol] 3 mmol/L Normal 3-13 [facility] Comment on above: Performed By: #### L DH3, CRP2, BMP3M, MG3, ICA, PHOS3, FERR3, HEMDF, LFT3, DDI2 ####[id number] [place], [place] Calcium [Mass/Vol] 8.3 mg/dL Low 8.4-10.4 [facility] Comment on above: Performed By: #### L DH3, CRP2, BMP3M, MG3, ICA, PHOS3, FERR3, HEMDF, LFT3, DDI2 ####[id number] [place], [place] CO2 [Moles/Vol] 31 mmol/L High 22-30 [facility] Comment on above: Performed By: #### L DH3, CRP2, BMP3M, MG3, ICA, PHOS3, FERR3, HEMDF, LFT3, DDI2 ####[id number] [place], [place] Glucose [Mass/Vol] 137 mg/dL High 70-100 [facility] Comment on above: Performed By: #### L DH3, CRP2, BMP3M, MG3, ICA, PHOS3, FERR3, HEMDF, LFT3, DDI2 ####[id number] [place] Urea nitrogen [Mass/Vol] 37 mg/dL High 7-20 [facility] Comment on above: Performed By: #### L DH3, CRP2, BMP3M, MG3, ICA, PHOS3, FERR3, HEMDF, LFT3, DDI2 ####[id number] [place], [place] Creatinine [Mass/Vol] 0.49 mg/dL Low 0.52-1.25 [facility] Comment on above: Performed By: #### L DH3, CRP2, BMP3M, MG3, ICA, PHOS3, FERR3, HEMDF, LFT3, DDI2 ####[facility] [employer] [id number] [place], [place] eGFR OTHER > 90.0 Normal >60 [facility] Comment on above: Result Comment: KDIG O guidelines provide the following GFR categories:Stage GFR(ml/min/1.73 m2) TermsG1 >=90 Normal or highG2 60-89 Mildly decreased*G3a 45-59 Mildly to moderately [id number] 30-44 Moderately to severely decreasedG4 15-29 Severely decreasedG5 <15 Kidney failure*Relative to young adult level.In the absence of evidence of kidney damage, neither GFRcategory G1 nor G2 fulfill the criteria for CKD.The CKD-EPI equation is validated in individuals 18 yearsof age and older. Currently the best equation forestimating glomerular filtration rate (GFR) from serumcreatinine in children is the Bedside Arechiga equation.It is less accurate in patients with extremes of musclemass, restriction of dietary protein, ingestion of creatine,extra-renal metabolism of creatinine, or treatment withmedications that affect renal tubular creatinine secretion. Performed By: #### L DH3, CRP2, BMP3M, MG3, ICA, PHOS3, FERR3, HEMDF, LFT3, DDI2 ####[facility] [address] [place] GFR/1.73 sq M.predicted among blacks MDRD (S/P/Bld) [Vol rate/Area] mL/min/{1.73_m2} Normal >60 [facility] Comment on above: Performed By: #### L DH3, CRP2, BMP3M, MG3, ICA, PHOS3, FERR3, HEMDF, LFT3, DDI2 ####[facility] [address] [place] Potassium [Moles/Vol] 3.3 mmol/L Low 3.5-5.1 [facility] Comment on above: Performed By: #### L DH3, CRP2, BMP3M, MG3, ICA, PHOS3, FERR3, HEMDF, LFT3, DDI2 ####[facility] [address] [address] [place] [address] Chloride [Moles/Vol] 101 mmol/L Normal 98-107 [facility] Comment on above: Performed By: #### L DH3, CRP2, BMP3M, MG3, ICA, PHOS3, FERR3, HEMDF, LFT3, DDI2 ####[address] Sodium [Moles/Vol] 135 mmol/L Normal 135-145 [facility] Comment on above: Performed By: #### L DH3, CRP2, BMP3M, MG3, ICA, PHOS3, FERR3, HEMDF, LFT3, DDI2 ####[address] C-Reactive Proteinon 021 CRP [Mass/Vol] 193.5 mg/L High 0.0-6.0 [facility] Comment on above: Result Comment: . Performed By: #### L DH3, CRP2, BMP3M, MG3, ICA, PHOS3, FERR3, HEMDF, LFT3, DDI2 ####[address] [address] [place], [place] Calcium,Ionizedon 06-20-2021 Ionized Ca,Measured 3.80 mg/dL Low 4.30-5.20 [facility] Comment on above: Performed By: #### L DH3, CRP2, BMP3M, MG3, ICA, PHOS3, FERR3, HEMDF, LFT3, DDI2 ####[address] pH, Ionized Calcium 7.50 High 7.31-7.46 [facility] Comment on above: Performed By: #### L DH3, CRP2, BMP3M, MG3, ICA, PHOS3, FERR3, HEMDF, LFT3, DDI2 ####[address] D-Dimer, Innovanceon 021 D-Dimer, Innovance 17.00 mg/L High <0.19-0.50 [facility] Comment on above: Result Comment: Inno [place] D-Dimer values of <0.50 mg/L FEU can be used incombination with a pre-test probability model (e.g. Well's)to exclude pulmonary embolism (PE) disease, as well as jodi in the diagnosis of deep vein thrombosis (DVT). Performed By: #### L DH3, CRP2, BMP3M, MG3, ICA, PHOS3, FERR3, HEMDF, LFT3, DDI2 ####[address] [facility] [place] [address] Ferritinon 06-20-2021 Ferritin [Mass/Vol] 390 ng/mL High 8-252 [facility] Comment on above: Performed By: #### L DH3, CRP2, BMP3M, MG3, ICA, PHOS3, FERR3, HEMDF, LFT3, DDI2 ####[email or web address] [facility] [place] [address] Glucose,Bedsideon 06-20-2021 Glucose [Mass/Vol] 143 mg/dL High 70-100 [facility] Comment on above: Result Comment: Test performed by glucose meter. Results may be 10%-15% lowerthan serum/plasma values. (CLIA ID [id number]) Performed By: #### B GLU ####[email or web address] [facility] [place] [address] Glucose [Mass/Vol] 153 mg/dL High 70-100 [facility] Comment on above: Result Comment: Test performed by glucose meter. Results may be 10%-15% lowerthan serum/plasma values. (CLIA ID [id number]) Performed By: #### B GLU ####[email or web address] [facility] [place] [address] Glucose [Mass/Vol] 145 mg/dL High 70-100 [facility] Comment on above: Result Comment: Test performed by glucose meter. Results may be 10%-15% lowerthan serum/plasma values. (CLIA ID [id number]) Performed By: #### B GLU ####[email or web address] [facility] [place] [address] Glucose [Mass/Vol] 162 mg/dL High 70-100 [facility] Comment on above: Result Comment: Test performed by glucose meter. Results may be 10%-15% lowerthan serum/plasma values. (CLIA ID [id number]) Performed By: #### B GLU ####[id number] [place], [place] Glucose [Mass/Vol] 139 mg/dL High 70-100 [facility] Comment on above: Result Comment: Test performed by glucose meter. Results may be 10%-15% lowerthan serum/plasma values. (CLIA ID [id number]) Performed By: #### B GLU ####[address] Hemogram w/ Autodiffon 06-20 Abs Baso Cnt 0.0 10*3/uL Normal 0.0-0.2 [facility] Comment on above: Performed By: #### L DH3, CRP2, BMP3M, MG3, ICA, PHOS3, FERR3, HEMDF, LFT3, DDI2 ####[address] Abs Neutrophile Cnt 9.8 10*3/uL High 1.8-7.0 [facility] Comment on above: Performed By: #### L DH3, CRP2, BMP3M, MG3, ICA, PHOS3, FERR3, HEMDF, LFT3, DDI2 ####[address] Basophils/100 WBC (Bld) 0.1 % Normal 0.0-2.0 [facility] Comment on above: Performed By: #### L DH3, CRP2, BMP3M, MG3, ICA, PHOS3, FERR3, HEMDF, LFT3, DDI2 ####[address] Eosinophils (Bld) [#/Vol] 0.3 10*3/uL Normal 0.0-0.5 [facility] Comment on above: Performed By: #### L DH3, CRP2, BMP3M, MG3, ICA, PHOS3, FERR3, HEMDF, LFT3, DDI2 ####[address] Eosinophils/100 WBC (Bld) 2.3 % Normal 1.0-6.0 [facility] Comment on above: Performed By: #### L DH3, CRP2, BMP3M, MG3, ICA, PHOS3, FERR3, HEMDF, LFT3, DDI2 ####[address] Erythrocyte distribution width (RBC) [Ratio] 22.9 % High 11.5-14.5 [facility] Comment on above: Performed By: #### L DH3, CRP2, BMP3M, MG3, ICA, PHOS3, FERR3, HEMDF, LFT3, DDI2 ####[address] Granulocytes/100 WBC (Bld) 82.9 % High 40.0-80.0 [facility] Comment on above: Performed By: #### L DH3, CRP2, BMP3M, MG3, ICA, PHOS3, FERR3, HEMDF, LFT3, DDI2 ####[address] Hematocrit (Bld) [Volume fraction] 32.9 % Low 35.0-47.0 [facility] Comment on above: Performed By: #### L DH3, CRP2, BMP3M, MG3, ICA, PHOS3, FERR3, HEMDF, LFT3, DDI2 ####[address] Hemoglobin (Bld) [Mass/Vol] 10.4 g/dL Low 11.7-16.0 [facility] Comment on above: Performed By: #### L DH3, CRP2, BMP3M, MG3, ICA, PHOS3, FERR3, HEMDF, LFT3, DDI2 ####[address] Lymphocytes (Bld) [#/Vol] 0.8 10*3/uL Low 1.0-4.3 [facility] Comment on above: Performed By: #### L DH3, CRP2, BMP3M, MG3, ICA, PHOS3, FERR3, HEMDF, LFT3, DDI2 ####[address] Lymphocytes/100 WBC (Bld) 7.0 % Low 20.0-40.0 [facility] Comment on above: Performed By: #### L DH3, CRP2, BMP3M, MG3, ICA, PHOS3, FERR3, HEMDF, LFT3, DDI2 ####[address] MCH (RBC) [Entitic mass] 23.4 pg Low 26.0-34.0 [facility] Comment on above: Performed By: #### L DH3, CRP2, BMP3M, MG3, ICA, PHOS3, FERR3, HEMDF, LFT3, DDI2 ####[address] MCHC 31.5 % Low 32.0-36.0 [facility] Comment on above: Performed By: #### L DH3, CRP2, BMP3M, MG3, ICA, PHOS3, FERR3, HEMDF, LFT3, DDI2 ####[address] MCV (RBC) [Entitic vol] 74.3 fL Low 79.0-98.0 [facility] Comment on above: Performed By: #### L DH3, CRP2, BMP3M, MG3, ICA, PHOS3, FERR3, HEMDF, LFT3, DDI2 ####[address] Monocytes (Bld) [#/Vol] 0.9 10*3/uL High 0.0-0.8 [facility] Comment on above: Performed By: #### L DH3, CRP2, BMP3M, MG3, ICA, PHOS3, FERR3, HEMDF, LFT3, DDI2 ####[id number] [place], [place] Monocytes/100 WBC (Bld) 7.7 % Normal 2.0-10.0 [facility] Comment on above: Performed By: #### L DH3, CRP2, BMP3M, MG3, ICA, PHOS3, FERR3, HEMDF, LFT3, DDI2 ####[id number] [place], [place] Platelet mean volume (Bld) [Entitic vol] 9.4 fL Normal 7.4-10.4 [facility] Comment on above: Performed By: #### L DH3, CRP2, BMP3M, MG3, ICA, PHOS3, FERR3, HEMDF, LFT3, DDI2 ####[address] Platelets (Bld) [#/Vol] 112 10*3/uL Low 140-440 [facility] Comment on above: Performed By: #### L DH3, CRP2, BMP3M, MG3, ICA, PHOS3, FERR3, HEMDF, LFT3, DDI2 ####[id number] [place], [place] RBC (Bld) [#/Vol] 4.43 10*6/uL Normal 3.80-5.20 [facility] Comment on above: Performed By: #### L DH3, CRP2, BMP3M, MG3, ICA, PHOS3, FERR3, HEMDF, LFT3, DDI2 ####[address] WBC (Bld) [#/Vol] 11.9 10*3/uL High 3.6-10.7 [facility] Comment on above: Performed By: #### L DH3, CRP2, BMP3M, MG3, ICA, PHOS3, FERR3, HEMDF, LFT3, DDI2 ####[address] Hepatic Functionon 1 ALP [Catalytic activity/Vol] 101 U/L Normal 38-126 [facility] Comment on above: Performed By: #### L DH3, CRP2, BMP3M, MG3, ICA, PHOS3, FERR3, HEMDF, LFT3, DDI2 ####[address] ALT [Catalytic activity/Vol] 69 U/L High 0-34 [facility] Comment on above: Result Comment: The ALT test is performed by an updated assay method.Please note that the reference intervals have beenchanged and are now sex specific. Performed By: #### L DH3, CRP2, BMP3M, MG3, ICA, PHOS3, FERR3, HEMDF, LFT3, DDI2 ####[address] AST [Catalytic activity/Vol] 52 U/L High 15-46 [facility] Comment on above: Performed By: #### L DH3, CRP2, BMP3M, MG3, ICA, PHOS3, FERR3, HEMDF, LFT3, DDI2 ####[address] Bilirubin [Mass/Vol] 1.0 mg/dL Normal 0.2-1.3 [facility] Comment on above: Performed By: #### L DH3, CRP2, BMP3M, MG3, ICA, PHOS3, FERR3, HEMDF, LFT3, DDI2 ####[id number] [place], [place] Bilirubin.indirect [Mass/Vol] 0.0 mg/dL Normal 0.0-0.3 [facility] Comment on above: Performed By: #### L DH3, CRP2, BMP3M, MG3, ICA, PHOS3, FERR3, HEMDF, LFT3, DDI2 ####[address] Protein [Mass/Vol] 6.2 g/dL Low 6.3-8.2 [facility] Comment on above: Performed By: #### L DH3, CRP2, BMP3M, MG3, ICA, PHOS3, FERR3, HEMDF, LFT3, DDI2 ####[id number] [place] [address] Albumin [Mass/Vol] 2.9 g/dL Low 3.5-5.0 [facility] Comment on above: Performed By: #### L DH3, CRP2, BMP3M, MG3, ICA, PHOS3, FERR3, HEMDF, LFT3, DDI2 ####[id number] [place] [address] LDHon 06-20-2021 LDH 328 U/L High 120-246 [facility] Comment on above: Performed By: #### L DH3, CRP2, BMP3M, MG3, ICA, PHOS3, FERR3, HEMDF, LFT3, DDI2 ####[address] [address] Magnesiumon 06-20-2021 Magnesium [Mass/Vol] 2.1 mg/dL Normal 1.6-2.3 [facility] Comment on above: Performed By: #### L DH3, CRP2, BMP3M, MG3, ICA, PHOS3, FERR3, HEMDF, LFT3, DDI2 ####[address] [address] Phosphoruson 06-20-2021 Phosphate [Mass/Vol] 3.0 mg/dL Normal 2.5-4.5 [facility] Comment on above: Performed By: #### L DH3, CRP2, BMP3M, MG3, ICA, PHOS3, FERR3, HEMDF, LFT3, DDI2 ####[address] [address] Arterial Blood Gaseson 06-19 CO2 [Moles/Vol] 34.0 mmol/L High 23.0-27.0 [facility] Comment on above: Performed By: #### H EMDF, FERR3, LFT3, ABG, ICA, LDH3, DDI2, CRP2, MG3, PHOS3, BMP3M ####[address] [address] HCO3 (Bld) [Moles/Vol] 32.7 mmol/L High 21.0-25.0 [facility] Comment on above: Performed By: #### H EMDF, FERR3, LFT3, ABG, ICA, LDH3, DDI2, CRP2, MG3, PHOS3, BMP3M ####[address] Hemoglobin (Bld) [Mass/Vol] 11.7 g/dL Normal ScreenOnly [facility] Comment on above: Performed By: #### H EMDF, FERR3, LFT3, ABG, ICA, LDH3, DDI2, CRP2, MG3, PHOS3, BMP3M ####[address] Oxygen (Bld) [Partial pressure] 53.7 mm[Hg] Low 80.0-100.0 [facility] Comment on above: Performed By: #### H EMDF, FERR3, LFT3, ABG, ICA, LDH3, DDI2, CRP2, MG3, PHOS3, BMP3M ####[address] Oxygen saturation in Blood 87.9 % Low 95.0-100.0 [facility] Comment on above: Performed By: #### H EMDF, FERR3, LFT3, ABG, ICA, LDH3, DDI2, CRP2, MG3, PHOS3, BMP3M ####[address] pCO2 41.3 mm[Hg] Normal 35.0-45.0 [facility] Comment on above: Performed By: #### H EMDF, FERR3, LFT3, ABG, ICA, LDH3, DDI2, CRP2, MG3, PHOS3, BMP3M ####[address] pH 7.517 High 7.350-7.450 [facility] Comment on above: Performed By: #### H EMDF, FERR3, LFT3, ABG, ICA, LDH3, DDI2, CRP2, MG3, PHOS3, BMP3M ####[id number] [place], [place] Std Base Excess 9.0 mmol/L High -3.0-3.0 [facility] Comment on above: Performed By: #### H EMDF, FERR3, LFT3, ABG, ICA, LDH3, DDI2, CRP2, MG3, PHOS3, BMP3M ####[id number] [place], [place] FIO2 30% Normal [facility] Comment on above: Performed By: #### H EMDF, FERR3, LFT3, ABG, ICA, LDH3, DDI2, CRP2, MG3, PHOS3, BMP3M ####[id number] [place], [place] Basic Metabolic Panelon 07-2 Calcium [Mass/Vol] 8.4 mg/dL Normal 8.4-10.4 [facility] Comment on above: Performed By: #### H EMDF, FERR3, LFT3, ABG, ICA, LDH3, DDI2, CRP2, MG3, PHOS3, BMP3M ####[id number] [place], [place] Anion gap [Moles/Vol] 4 mmol/L Normal 3-13 [facility] Comment on above: Performed By: #### H EMDF, FERR3, LFT3, ABG, ICA, LDH3, DDI2, CRP2, MG3, PHOS3, BMP3M ####[id number] [place], [place] CO2 [Moles/Vol] 33 mmol/L High 22-30 [facility] Comment on above: Performed By: #### H EMDF, FERR3, LFT3, ABG, ICA, LDH3, DDI2, CRP2, MG3, PHOS3, BMP3M ####[id number] [place], [place] Glucose [Mass/Vol] 136 mg/dL High 70-100 [facility] Comment on above: Performed By: #### H EMDF, FERR3, LFT3, ABG, ICA, LDH3, DDI2, CRP2, MG3, PHOS3, BMP3M ####[id number] [place], [place] Urea nitrogen [Mass/Vol] 47 mg/dL High 7-20 [facility] Comment on above: Performed By: #### H EMDF, FERR3, LFT3, ABG, ICA, LDH3, DDI2, CRP2, MG3, PHOS3, BMP3M ####[address] Creatinine [Mass/Vol] 0.65 mg/dL Normal 0.52-1.25 [facility] Comment on above: Performed By: #### H EMDF, FERR3, LFT3, ABG, ICA, LDH3, DDI2, CRP2, MG3, PHOS3, BMP3M ####[address] eGFR OTHER > 90.0 Normal >60 [facility] Comment on above: Result Comment: KDIG O guidelines provide the following GFR categories:Stage GFR(ml/min/1.73 m2) TermsG1 >=90 Normal or highG2 60-89 Mildly decreased*G3a 45-59 Mildly to moderately diqquozozE0q 30-44 Moderately to severely decreasedG4 15-29 Severely decreasedG5 <15 Kidney failure*Relative to young adult level.In the absence of evidence of kidney damage, neither GFRcategory G1 nor G2 fulfill the criteria for CKD.The CKD-EPI equation is validated in individuals 18 yearsof age and older. Currently the best equation forestimating glomerular filtration rate (GFR) from serumcreatinine in children is the Bedside Arechiga equation.It is less accurate in patients with extremes of musclemass, restriction of dietary protein, ingestion of creatine,extra-renal metabolism of creatinine, or treatment withmedications that affect renal tubular creatinine secretion. Performed By: #### H EMDF, FERR3, LFT3, ABG, ICA, LDH3, DDI2, CRP2, MG3, PHOS3, BMP3M ####[address] GFR/1.73 sq M.predicted among blacks MDRD (S/P/Bld) [Vol rate/Area] mL/min/{1.73_m2} Normal >60 [facility] Comment on above: Performed By: #### H EMDF, FERR3, LFT3, ABG, ICA, LDH3, DDI2, CRP2, MG3, PHOS3, BMP3M ####[address] Potassium [Moles/Vol] 3.1 mmol/L Low 3.5-5.1 [facility] Comment on above: Performed By: #### H EMDF, FERR3, LFT3, ABG, ICA, LDH3, DDI2, CRP2, MG3, PHOS3, BMP3M ####[address] Chloride [Moles/Vol] 104 mmol/L Normal 98-107 [facility] Comment on above: Performed By: #### H EMDF, FERR3, LFT3, ABG, ICA, LDH3, DDI2, CRP2, MG3, PHOS3, BMP3M ####[address] Sodium [Moles/Vol] 142 mmol/L Normal 135-145 [facility] Comment on above: Performed By: #### H EMDF, FERR3, LFT3, ABG, ICA, LDH3, DDI2, CRP2, MG3, PHOS3, BMP3M ####[address] C-Reactive Proteinon 021 CRP [Mass/Vol] 204.0 mg/L High 0.0-6.0 [facility] Comment on above: Result Comment: . Performed By: #### H EMDF, FERR3, LFT3, ABG, ICA, LDH3, DDI2, CRP2, MG3, PHOS3, BMP3M ####[address] CR Chest Portableon 06-19-20 21 CR Chest Portable Normal [facility] CULT./ST. RESPIRATORYon 05-31 CULT./ST. RESPIRATORY Normal [facility] Comment on above: Performed By: #### C S/RE ####[address] [address] [place], [place] [id number]#### S/GRM ####[address] [address] CULTURE BLOODon 06-19-2021 Microscopic examination of blood, culture 1 Organism (Coagulase-negative) Staphylococcus hominis Isolated: For identification and/or sensitivity, refer to culture collected on: 06/15/2021 at 2308, ([id number]). Normal [facility] Comment on above: Performed By: #### C /BLD ####[address] Calcium,Ionizedon 06-19-2021 Ionized Ca,Measured 3.90 mg/dL Low 4.30-5.20 [facility] Comment on above: Performed By: #### H EMDF, FERR3, LFT3, ABG, ICA, LDH3, DDI2, CRP2, MG3, PHOS3, BMP3M ####[address] [address] pH, Ionized Calcium 7.45 Normal 7.31-7.46 [facility] Comment on above: Performed By: #### H EMDF, FERR3, LFT3, ABG, ICA, LDH3, DDI2, CRP2, MG3, PHOS3, BMP3M ####[address] [address] D-Dimer, Innovanceon 021 D-Dimer, Innovance 15.92 mg/L High <0.19-0.50 [facility] Comment on above: Result Comment: Inno carrington D-Dimer values of <0.50 mg/L FEU can be used incombination with a pre-test probability model (e.g. Well's)to exclude pulmonary embolism (PE) disease, as well as jodi in the diagnosis of deep vein thrombosis (DVT). Performed By: #### H EMDF, FERR3, LFT3, ABG, ICA, LDH3, DDI2, CRP2, MG3, PHOS3, BMP3M ####[employer] [address] [place] [address] Echo Complete w/wo Contrasto n 06-19-2021 Echo Complete w/wo Contrast Normal [facility] Ferritinon 06-19-2021 Ferritin [Mass/Vol] 340 ng/mL High 8-252 [facility] Comment on above: Performed By: #### H EMDF, FERR3, LFT3, ABG, ICA, LDH3, DDI2, CRP2, MG3, PHOS3, BMP3M ####[employer] [address] [place] [address] Glucose,Bedsideon 06-19-2021 Glucose [Mass/Vol] 162 mg/dL High 70-100 [facility] Comment on above: Result Comment: Test performed by glucose meter. Results may be 10%-15% lowerthan serum/plasma values. (CLIA ID [id number]) Performed By: #### B GLU ####[address] [place] [address] Glucose [Mass/Vol] 185 mg/dL High 70-100 [facility] Comment on above: Result Comment: Test performed by glucose meter. Results may be 10%-15% lowerthan serum/plasma values. (CLIA ID [id number]) Performed By: #### B GLU ####[employer] [place] [address] Glucose [Mass/Vol] 159 mg/dL High 70-100 [facility] Comment on above: Result Comment: Test performed by glucose meter. Results may be 10%-15% lowerthan serum/plasma values. (CLIA ID [id number]) Performed By: #### B GLU ####[address] [place] [address] Glucose [Mass/Vol] 137 mg/dL High 70-100 [facility] Comment on above: Result Comment: Test performed by glucose meter. Results may be 10%-15% lowerthan serum/plasma values. (CLIA ID [id number]) Performed By: #### B GLU ####[address] Hemogram w/ Autodiffon 06-19 Abs Baso Cnt 0.0 10*3/uL Normal 0.0-0.2 [facility] Comment on above: Performed By: #### H EMDF, FERR3, LFT3, ABG, ICA, LDH3, DDI2, CRP2, MG3, PHOS3, BMP3M ####[address] Abs Neutrophile Cnt 10.4 10*3/uL High 1.8-7.0 [facility] Comment on above: Performed By: #### H EMDF, FERR3, LFT3, ABG, ICA, LDH3, DDI2, CRP2, MG3, PHOS3, BMP3M ####[address] Basophils/100 WBC (Bld) 0.0 % Normal 0.0-2.0 [facility] Comment on above: Performed By: #### H EMDF, FERR3, LFT3, ABG, ICA, LDH3, DDI2, CRP2, MG3, PHOS3, BMP3M ####[address] Eosinophils (Bld) [#/Vol] 0.1 10*3/uL Normal 0.0-0.5 [facility] Comment on above: Performed By: #### H EMDF, FERR3, LFT3, ABG, ICA, LDH3, DDI2, CRP2, MG3, PHOS3, BMP3M ####[address] Eosinophils/100 WBC (Bld) 0.6 % Low 1.0-6.0 [facility] Comment on above: Performed By: #### H EMDF, FERR3, LFT3, ABG, ICA, LDH3, DDI2, CRP2, MG3, PHOS3, BMP3M ####[address] Erythrocyte distribution width (RBC) [Ratio] 22.0 % High 11.5-14.5 [facility] Comment on above: Performed By: #### H EMDF, FERR3, LFT3, ABG, ICA, LDH3, DDI2, CRP2, MG3, PHOS3, BMP3M ####[address] Granulocytes/100 WBC (Bld) 86.5 % High 40.0-80.0 [facility] Comment on above: Performed By: #### H EMDF, FERR3, LFT3, ABG, ICA, LDH3, DDI2, CRP2, MG3, PHOS3, BMP3M ####[address] Hematocrit (Bld) [Volume fraction] 34.9 % Low 35.0-47.0 [facility] Comment on above: Performed By: #### H EMDF, FERR3, LFT3, ABG, ICA, LDH3, DDI2, CRP2, MG3, PHOS3, BMP3M ####[address] Hemoglobin (Bld) [Mass/Vol] 10.8 g/dL Low 11.7-16.0 [facility] Comment on above: Performed By: #### H EMDF, FERR3, LFT3, ABG, ICA, LDH3, DDI2, CRP2, MG3, PHOS3, BMP3M ####[address] Lymphocytes (Bld) [#/Vol] 0.6 10*3/uL Low 1.0-4.3 [facility] Comment on above: Performed By: #### H EMDF, FERR3, LFT3, ABG, ICA, LDH3, DDI2, CRP2, MG3, PHOS3, BMP3M ####[address] Lymphocytes/100 WBC (Bld) 5.0 % Low 20.0-40.0 [facility] Comment on above: Performed By: #### H EMDF, FERR3, LFT3, ABG, ICA, LDH3, DDI2, CRP2, MG3, PHOS3, BMP3M ####[address] MCH (RBC) [Entitic mass] 23.2 pg Low 26.0-34.0 [facility] Comment on above: Performed By: #### H EMDF, FERR3, LFT3, ABG, ICA, LDH3, DDI2, CRP2, MG3, PHOS3, BMP3M ####[address] MCHC 31.0 % Low 32.0-36.0 [facility] Comment on above: Performed By: #### H EMDF, FERR3, LFT3, ABG, ICA, LDH3, DDI2, CRP2, MG3, PHOS3, BMP3M ####[address] MCV (RBC) [Entitic vol] 74.7 fL Low 79.0-98.0 [facility] Comment on above: Performed By: #### H EMDF, FERR3, LFT3, ABG, ICA, LDH3, DDI2, CRP2, MG3, PHOS3, BMP3M ####[address] Monocytes (Bld) [#/Vol] 0.9 10*3/uL High 0.0-0.8 [facility] Comment on above: Performed By: #### H EMDF, FERR3, LFT3, ABG, ICA, LDH3, DDI2, CRP2, MG3, PHOS3, BMP3M ####[address] Monocytes/100 WBC (Bld) 7.9 % Normal 2.0-10.0 [facility] Comment on above: Performed By: #### H EMDF, FERR3, LFT3, ABG, ICA, LDH3, DDI2, CRP2, MG3, PHOS3, BMP3M ####[address] Platelet mean volume (Bld) [Entitic vol] 9.6 fL Normal 7.4-10.4 [facility] Comment on above: Performed By: #### H EMDF, FERR3, LFT3, ABG, ICA, LDH3, DDI2, CRP2, MG3, PHOS3, BMP3M ####[address] Platelets (Bld) [#/Vol] 108 10*3/uL Low 140-440 [facility] Comment on above: Performed By: #### H EMDF, FERR3, LFT3, ABG, ICA, LDH3, DDI2, CRP2, MG3, PHOS3, BMP3M ####[address] RBC (Bld) [#/Vol] 4.67 10*6/uL Normal 3.80-5.20 [facility] Comment on above: Performed By: #### H EMDF, FERR3, LFT3, ABG, ICA, LDH3, DDI2, CRP2, MG3, PHOS3, BMP3M ####[address] WBC (Bld) [#/Vol] 12.0 10*3/uL High 3.6-10.7 [facility] Comment on above: Performed By: #### H EMDF, FERR3, LFT3, ABG, ICA, LDH3, DDI2, CRP2, MG3, PHOS3, BMP3M ####[address] Hepatic Functionon 1 ALT [Catalytic activity/Vol] 64 U/L High 0-34 [facility] Comment on above: Result Comment: The ALT test is performed by an updated assay method.Please note that the reference intervals have beenchanged and are now sex specific. Performed By: #### H EMDF, FERR3, LFT3, ABG, ICA, LDH3, DDI2, CRP2, MG3, PHOS3, BMP3M ####[address] ALP [Catalytic activity/Vol] 78 U/L Normal 38-126 [facility] Comment on above: Performed By: #### H EMDF, FERR3, LFT3, ABG, ICA, LDH3, DDI2, CRP2, MG3, PHOS3, BMP3M ####[address] AST [Catalytic activity/Vol] 34 U/L Normal 15-46 [facility] Comment on above: Performed By: #### H EMDF, FERR3, LFT3, ABG, ICA, LDH3, DDI2, CRP2, MG3, PHOS3, BMP3M ####[address] Bilirubin [Mass/Vol] 1.0 mg/dL Normal 0.2-1.3 [facility] Comment on above: Performed By: #### H EMDF, FERR3, LFT3, ABG, ICA, LDH3, DDI2, CRP2, MG3, PHOS3, BMP3M ####[address] Protein [Mass/Vol] 6.2 g/dL Low 6.3-8.2 [facility] Comment on above: Performed By: #### H EMDF, FERR3, LFT3, ABG, ICA, LDH3, DDI2, CRP2, MG3, PHOS3, BMP3M ####[address] Bilirubin.indirect [Mass/Vol] 0.0 mg/dL Normal 0.0-0.3 [facility] Comment on above: Performed By: #### H EMDF, FERR3, LFT3, ABG, ICA, LDH3, DDI2, CRP2, MG3, PHOS3, BMP3M ####[facility] [address] [place] [address] Albumin [Mass/Vol] 3.0 g/dL Low 3.5-5.0 [facility] Comment on above: Performed By: #### H EMDF, FERR3, LFT3, ABG, ICA, LDH3, DDI2, CRP2, MG3, PHOS3, BMP3M ####[address] [address] LDHon 06-19-2021 LDH 333 U/L High 120-246 [facility] Comment on above: Performed By: #### H EMDF, FERR3, LFT3, ABG, ICA, LDH3, DDI2, CRP2, MG3, PHOS3, BMP3M ####[address] [address] Magnesiumon 06-19-2021 Magnesium [Mass/Vol] 2.5 mg/dL High 1.6-2.3 [facility] Comment on above: Performed By: #### H EMDF, FERR3, LFT3, ABG, ICA, LDH3, DDI2, CRP2, MG3, PHOS3, BMP3M ####[address] [address] Phosphoruson 06-19-2021 Phosphate [Mass/Vol] 2.5 mg/dL Normal 2.5-4.5 [facility] Comment on above: Performed By: #### H EMDF, FERR3, LFT3, ABG, ICA, LDH3, DDI2, CRP2, MG3, PHOS3, BMP3M ####[address] [address] Procalcitoninon 06-19-2021 Procalcitonin 0.10 ng/mL High 0.00-0.09 [facility] Comment on above: Performed By: #### P OLESYA ####[address] [address] Interpretation See Below Normal [facility] Comment on above: Result Comment: PCT <0.50 = Low risk of severe sepsis and/or septic shock.PCT >2.00 = High risk of severe sepsis and/or septic shock. Performed By: #### P OLESYA ####[id number] [place], [place] STAIN GRAMon 06-19-2021 STAIN GRAM STAIN GRAM --> Statu s: F Moderate polymorphonuclear cells/lpf. Moderate epithelial cells/lpf. Rare gram positive cocci in pairs and chains. Moderate epithelial cells/lpf. Rare gram positive cocci in pairs and chains. Normal [facility] Comment on above: Performed By: #### S /GRM ####[address] [place], [place] #### CS/RE ####[address] [address] [place] [address] [address] [place], [place] Arterial Blood Gaseson 06-18 CO2 [Moles/Vol] 33.1 mmol/L High 23.0-27.0 [facility] Comment on above: Performed By: #### A BG ####[address] [address] [address] [place], [place] HCO3 (Bld) [Moles/Vol] 31.9 mmol/L High 21.0-25.0 [facility] Comment on above: Performed By: #### A BG ####[address] [address] [place], [place] Hemoglobin (Bld) [Mass/Vol] 12.3 g/dL Normal ScreenOnly [facility] Comment on above: Performed By: #### A BG ####[address] [address] [address] [place], [place] Oxygen (Bld) [Partial pressure] 73.2 mm[Hg] Low 80.0-100.0 [facility] Comment on above: Performed By: #### A BG ####[address] Oxygen saturation in Blood 93.9 % Low 95.0-100.0 [facility] Comment on above: Performed By: #### A BG ####[address] [address] [address] [place], [place] pCO2 41.5 mm[Hg] Normal 35.0-45.0 [facility] Comment on above: Performed By: #### A BG ####[id number] [place], [place] pH 7.503 High 7.350-7.450 [facility] Comment on above: Performed By: #### A BG ####[address] [address] [address] [place], [place] Std Base Excess 8.0 mmol/L High -3.0-3.0 [facility] Comment on above: Performed By: #### A BG ####[address] FIO2 50% Normal [facility] Comment on above: Performed By: #### A BG ####[address] Basic Metabolic Panelon 07-2 0-2020 Anion gap [Moles/Vol] 6 mmol/L Normal 3-13 [facility] Comment on above: Performed By: #### P HOS3, BMP3M, CRP2, ICA, FERR3, HEMDF, LFT3, MG3, DDI2, LDH3 ####[id number] [place], [place] Calcium [Mass/Vol] 8.3 mg/dL Low 8.4-10.4 [facility] Comment on above: Performed By: #### P HOS3, BMP3M, CRP2, ICA, FERR3, HEMDF, LFT3, MG3, DDI2, LDH3 ####[id number] [place], [place] CO2 [Moles/Vol] 31 mmol/L High 22-30 [facility] Comment on above: Performed By: #### P HOS3, BMP3M, CRP2, ICA, FERR3, HEMDF, LFT3, MG3, DDI2, LDH3 ####[address] Glucose [Mass/Vol] 229 mg/dL High 70-100 [facility] Comment on above: Performed By: #### P HOS3, BMP3M, CRP2, ICA, FERR3, HEMDF, LFT3, MG3, DDI2, LDH3 ####[id number] [place], [place] Urea nitrogen [Mass/Vol] 59 mg/dL High 7-20 [facility] Comment on above: Performed By: #### P HOS3, BMP3M, CRP2, ICA, FERR3, HEMDF, LFT3, MG3, DDI2, LDH3 ####[id number] [place], [place] Creatinine [Mass/Vol] 0.71 mg/dL Normal 0.52-1.25 [facility] Comment on above: Performed By: #### P HOS3, BMP3M, CRP2, ICA, FERR3, HEMDF, LFT3, MG3, DDI2, LDH3 ####[id number] [place], [place] eGFR OTHER > 90.0 Normal >60 [facility] Comment on above: Result Comment: KDIG O guidelines provide the following GFR categories:Stage GFR(ml/min/1.73 m2) TermsG1 >=90 Normal or highG2 60-89 Mildly decreased*G3a 45-59 Mildly to moderately ctrosspdxL9e 30-44 Moderately to severely decreasedG4 15-29 Severely decreasedG5 <15 Kidney failure*Relative to young adult level.In the absence of evidence of kidney damage, neither GFRcategory G1 nor G2 fulfill the criteria for CKD.The CKD-EPI equation is validated in individuals 18 yearsof age and older. Currently the best equation forestimating glomerular filtration rate (GFR) from serumcreatinine in children is the Bedside Arechiga equation.It is less accurate in patients with extremes of musclemass, restriction of dietary protein, ingestion of creatine,extra-renal metabolism of creatinine, or treatment withmedications that affect renal tubular creatinine secretion. Performed By: #### P HOS3, BMP3M, CRP2, ICA, FERR3, HEMDF, LFT3, MG3, DDI2, LDH3 ####[address] GFR/1.73 sq M.predicted among blacks MDRD (S/P/Bld) [Vol rate/Area] mL/min/{1.73_m2} Normal >60 [facility] Comment on above: Performed By: #### P HOS3, BMP3M, CRP2, ICA, FERR3, HEMDF, LFT3, MG3, DDI2, LDH3 ####[address] Potassium [Moles/Vol] 3.3 mmol/L Low 3.5-5.1 [facility] Comment on above: Performed By: #### P HOS3, BMP3M, CRP2, ICA, FERR3, HEMDF, LFT3, MG3, DDI2, LDH3 ####[address] Sodium [Moles/Vol] 140 mmol/L Normal 135-145 [facility] Comment on above: Performed By: #### P HOS3, BMP3M, CRP2, ICA, FERR3, HEMDF, LFT3, MG3, DDI2, LDH3 ####[address] Chloride [Moles/Vol] 104 mmol/L Normal 98-107 [facility] Comment on above: Performed By: #### P HOS3, BMP3M, CRP2, ICA, FERR3, HEMDF, LFT3, MG3, DDI2, LDH3 ####[address] C-Reactive Proteinon 021 CRP [Mass/Vol] 20.6 mg/L High 0.0-6.0 [facility] Comment on above: Result Comment: . Performed By: #### P HOS3, BMP3M, CRP2, ICA, FERR3, HEMDF, LFT3, MG3, DDI2, LDH3 ####[address] CR Abdomen APon 06-18-2021 CR Abdomen AP Normal [facility] CR Chest Portableon 06-18-20 21 CR Chest Portable Normal [facility] CULTURE BLOODon 06-18-2021 Microscopic examination of blood, culture CULTURE BLOOD --> Status: F No growth at 5 days. Normal [facility] Comment on above: Performed By: #### C /BLD ####[id number] [place], [place] CULTURE BLOOD (Two)on 2020 Microscopic examination of blood, culture CULTURE BLOOD (Two) --> Status: F No growth at 5 days. Normal [facility] Comment on above: Performed By: #### C /BLT ####[id number] [place], [place] CULTURE URINEon 06-18-2021 CULTURE URINE Normal [facility] Comment on above: Performed By: #### C /UR ####[id number] [place] [id number] [place], [place] Calcium,Ionizedon 06-18-2021 Ionized Ca,Measured 4.00 mg/dL Low 4.30-5.20 [facility] Comment on above: Performed By: #### P HOS3, BMP3M, CRP2, ICA, FERR3, HEMDF, LFT3, MG3, DDI2, LDH3 ####[id number] [place], [place] pH, Ionized Calcium 7.42 Normal 7.31-7.46 [facility] Comment on above: Performed By: #### P HOS3, BMP3M, CRP2, ICA, FERR3, HEMDF, LFT3, MG3, DDI2, LDH3 ####[facility] [id number] [place], [place] D-Dimer, Innovanceon 021 D-Dimer, Innovance 12.05 mg/L High <0.19-0.50 [facility] Comment on above: Result Comment: Inno carrington D-Dimer values of <0.50 mg/L FEU can be used incombination with a pre-test probability model (e.g. Well's)to exclude pulmonary embolism (PE) disease, as well as jodi in the diagnosis of deep vein thrombosis (DVT). Performed By: #### P HOS3, BMP3M, CRP2, ICA, FERR3, HEMDF, LFT3, MG3, DDI2, LDH3 ####[facility] [id number] [facility] [place] [address] Ferritinon 06-18-2021 Ferritin [Mass/Vol] 139 ng/mL Normal 8-252 [facility] Comment on above: Performed By: #### P HOS3, BMP3M, CRP2, ICA, FERR3, HEMDF, LFT3, MG3, DDI2, LDH3 ####[facility] [id number] [place] [address] Glucose,Bedsideon 06-18-2021 Glucose [Mass/Vol] 163 mg/dL High 70-100 [facility] Comment on above: Result Comment: Test performed by glucose meter. Results may be 10%-15% lowerthan serum/plasma values. (CLIA ID [id number]) Performed By: #### B GLU ####[facility] [id number] [place] [address] Glucose [Mass/Vol] 216 mg/dL High 70-100 [facility] Comment on above: Result Comment: Test performed by glucose meter. Results may be 10%-15% lowerthan serum/plasma values. (CLIA ID [id number]) Performed By: #### B GLU ####[facility] [id number] [facility] [place] [address] Glucose [Mass/Vol] 196 mg/dL High 70-100 [facility] Comment on above: Result Comment: Test performed by glucose meter. Results may be 10%-15% lowerthan serum/plasma values. (CLIA ID [id number]) Performed By: #### B GLU ####[facility] [id number] [facility] [place] [address] Glucose [Mass/Vol] 192 mg/dL High 70-100 [facility] Comment on above: Result Comment: Test performed by glucose meter. Results may be 10%-15% lowerthan serum/plasma values. (CLIA ID [id number]) Performed By: #### B GLU ####[address] Glucose [Mass/Vol] 205 mg/dL High 70-100 [facility] Comment on above: Result Comment: Test performed by glucose meter. Results may be 10%-15% lowerthan serum/plasma values. (CLIA ID [id number]) Performed By: #### B GLU ####[address] Hemogram w/ Autodiffon 06-18 Abs Baso Cnt 0.0 10*3/uL Normal 0.0-0.2 [facility] Comment on above: Performed By: #### P HOS3, BMP3M, CRP2, ICA, FERR3, HEMDF, LFT3, MG3, DDI2, LDH3 ####[address] Abs Neutrophile Cnt 9.4 10*3/uL High 1.8-7.0 [facility] Comment on above: Performed By: #### P HOS3, BMP3M, CRP2, ICA, FERR3, HEMDF, LFT3, MG3, DDI2, LDH3 ####[address] Basophils/100 WBC (Bld) 0.0 % Normal 0.0-2.0 [facility] Comment on above: Performed By: #### P HOS3, BMP3M, CRP2, ICA, FERR3, HEMDF, LFT3, MG3, DDI2, LDH3 ####[address] Eosinophils (Bld) [#/Vol] 0.0 10*3/uL Normal 0.0-0.5 [facility] Comment on above: Performed By: #### P HOS3, BMP3M, CRP2, ICA, FERR3, HEMDF, LFT3, MG3, DDI2, LDH3 ####[address] Eosinophils/100 WBC (Bld) 0.1 % Low 1.0-6.0 [facility] Comment on above: Performed By: #### P HOS3, BMP3M, CRP2, ICA, FERR3, HEMDF, LFT3, MG3, DDI2, LDH3 ####[address] Erythrocyte distribution width (RBC) [Ratio] 21.3 % High 11.5-14.5 [facility] Comment on above: Performed By: #### P HOS3, BMP3M, CRP2, ICA, FERR3, HEMDF, LFT3, MG3, DDI2, LDH3 ####[address] Granulocytes/100 WBC (Bld) 84.9 % High 40.0-80.0 [facility] Comment on above: Performed By: #### P HOS3, BMP3M, CRP2, ICA, FERR3, HEMDF, LFT3, MG3, DDI2, LDH3 ####[address] Hematocrit (Bld) [Volume fraction] 34.3 % Low 35.0-47.0 [facility] Comment on above: Performed By: #### P HOS3, BMP3M, CRP2, ICA, FERR3, HEMDF, LFT3, MG3, DDI2, LDH3 ####[address] Hemoglobin (Bld) [Mass/Vol] 10.9 g/dL Low 11.7-16.0 [facility] Comment on above: Performed By: #### P HOS3, BMP3M, CRP2, ICA, FERR3, HEMDF, LFT3, MG3, DDI2, LDH3 ####[address] Lymphocytes (Bld) [#/Vol] 0.7 10*3/uL Low 1.0-4.3 [facility] Comment on above: Performed By: #### P HOS3, BMP3M, CRP2, ICA, FERR3, HEMDF, LFT3, MG3, DDI2, LDH3 ####[address] Lymphocytes/100 WBC (Bld) 6.5 % Low 20.0-40.0 [facility] Comment on above: Performed By: #### P HOS3, BMP3M, CRP2, ICA, FERR3, HEMDF, LFT3, MG3, DDI2, LDH3 ####[address] MCH (RBC) [Entitic mass] 23.2 pg Low 26.0-34.0 [facility] Comment on above: Performed By: #### P HOS3, BMP3M, CRP2, ICA, FERR3, HEMDF, LFT3, MG3, DDI2, LDH3 ####[address] MCHC 31.7 % Low 32.0-36.0 [facility] Comment on above: Performed By: #### P HOS3, BMP3M, CRP2, ICA, FERR3, HEMDF, LFT3, MG3, DDI2, LDH3 ####[address] MCV (RBC) [Entitic vol] 73.0 fL Low 79.0-98.0 [facility] Comment on above: Performed By: #### P HOS3, BMP3M, CRP2, ICA, FERR3, HEMDF, LFT3, MG3, DDI2, LDH3 ####[address] Monocytes (Bld) [#/Vol] 1.0 10*3/uL High 0.0-0.8 [facility] Comment on above: Performed By: #### P HOS3, BMP3M, CRP2, ICA, FERR3, HEMDF, LFT3, MG3, DDI2, LDH3 ####[address] Monocytes/100 WBC (Bld) 8.5 % Normal 2.0-10.0 [facility] Comment on above: Performed By: #### P HOS3, BMP3M, CRP2, ICA, FERR3, HEMDF, LFT3, MG3, DDI2, LDH3 ####[id number] [place], [place] Platelet mean volume (Bld) [Entitic vol] 9.4 fL Normal 7.4-10.4 [facility] Comment on above: Performed By: #### P HOS3, BMP3M, CRP2, ICA, FERR3, HEMDF, LFT3, MG3, DDI2, LDH3 ####[id number] [place], [place] Platelets (Bld) [#/Vol] 108 10*3/uL Low 140-440 [facility] Comment on above: Performed By: #### P HOS3, BMP3M, CRP2, ICA, FERR3, HEMDF, LFT3, MG3, DDI2, LDH3 ####[address] RBC (Bld) [#/Vol] 4.71 10*6/uL Normal 3.80-5.20 [facility] Comment on above: Performed By: #### P HOS3, BMP3M, CRP2, ICA, FERR3, HEMDF, LFT3, MG3, DDI2, LDH3 ####[address] WBC (Bld) [#/Vol] 11.1 10*3/uL High 3.6-10.7 [facility] Comment on above: Performed By: #### P HOS3, BMP3M, CRP2, ICA, FERR3, HEMDF, LFT3, MG3, DDI2, LDH3 ####[id number] [place], [place] Hepatic Functionon 1 ALP [Catalytic activity/Vol] 78 U/L Normal 38-126 [facility] Comment on above: Performed By: #### P HOS3, BMP3M, CRP2, ICA, FERR3, HEMDF, LFT3, MG3, DDI2, LDH3 ####[address] ALT [Catalytic activity/Vol] 86 U/L High 0-34 [facility] Comment on above: Result Comment: The ALT test is performed by an updated assay method.Please note that the reference intervals have beenchanged and are now sex specific. Performed By: #### P HOS3, BMP3M, CRP2, ICA, FERR3, HEMDF, LFT3, MG3, DDI2, LDH3 ####[address] AST [Catalytic activity/Vol] 32 U/L Normal 15-46 [facility] Comment on above: Performed By: #### P HOS3, BMP3M, CRP2, ICA, FERR3, HEMDF, LFT3, MG3, DDI2, LDH3 ####[address] Bilirubin [Mass/Vol] 0.6 mg/dL Normal 0.2-1.3 [facility] Comment on above: Performed By: #### P HOS3, BMP3M, CRP2, ICA, FERR3, HEMDF, LFT3, MG3, DDI2, LDH3 ####[id number] [place], [place] Bilirubin.indirect [Mass/Vol] 0.0 mg/dL Normal 0.0-0.3 [facility] Comment on above: Performed By: #### P HOS3, BMP3M, CRP2, ICA, FERR3, HEMDF, LFT3, MG3, DDI2, LDH3 ####[address] Protein [Mass/Vol] 6.1 g/dL Low 6.3-8.2 [facility] Comment on above: Performed By: #### P HOS3, BMP3M, CRP2, ICA, FERR3, HEMDF, LFT3, MG3, DDI2, LDH3 ####[address] Albumin [Mass/Vol] 3.1 g/dL Low 3.5-5.0 [facility] Comment on above: Performed By: #### P HOS3, BMP3M, CRP2, ICA, FERR3, HEMDF, LFT3, MG3, DDI2, LDH3 ####[id number] [place] [address] LDHon 06-18-2021 LDH 290 U/L High 120-246 [facility] Comment on above: Performed By: #### P HOS3, BMP3M, CRP2, ICA, FERR3, HEMDF, LFT3, MG3, DDI2, LDH3 ####[id number] [place], [place] Magnesiumon 06-18-2021 Magnesium [Mass/Vol] 2.3 mg/dL Normal 1.6-2.3 [facility] Comment on above: Performed By: #### P HOS3, BMP3M, CRP2, ICA, FERR3, HEMDF, LFT3, MG3, DDI2, LDH3 ####[address] Phosphoruson 06-18-2021 Phosphate [Mass/Vol] 3.4 mg/dL Normal 2.5-4.5 [facility] Comment on above: Performed By: #### P HOS3, BMP3M, CRP2, ICA, FERR3, HEMDF, LFT3, MG3, DDI2, LDH3 ####[address] [place], [place] Basic Metabolic Panelon 05-30 Calcium [Mass/Vol] 8.6 mg/dL Normal 8.4-10.4 [facility] Comment on above: Performed By: #### P HOS3, LDH3, DDI2, CRP2, BMP3M, MG3, FERR3, HEMDF, LFT3, ICA ####[address] Anion gap [Moles/Vol] 6 mmol/L Normal 3-13 [facility] Comment on above: Performed By: #### P HOS3, LDH3, DDI2, CRP2, BMP3M, MG3, FERR3, HEMDF, LFT3, ICA ####[address] CO2 [Moles/Vol] 31 mmol/L High 22-30 [facility] Comment on above: Performed By: #### P HOS3, LDH3, DDI2, CRP2, BMP3M, MG3, FERR3, HEMDF, LFT3, ICA ####[address] Glucose [Mass/Vol] 258 mg/dL High 70-100 [facility] Comment on above: Performed By: #### P HOS3, LDH3, DDI2, CRP2, BMP3M, MG3, FERR3, HEMDF, LFT3, ICA ####[address] Urea nitrogen [Mass/Vol] 56 mg/dL High 7-20 [facility] Comment on above: Performed By: #### P HOS3, LDH3, DDI2, CRP2, BMP3M, MG3, FERR3, HEMDF, LFT3, ICA ####[address] Creatinine [Mass/Vol] 0.88 mg/dL Normal 0.52-1.25 [facility] Comment on above: Performed By: #### P HOS3, LDH3, DDI2, CRP2, BMP3M, MG3, FERR3, HEMDF, LFT3, ICA ####[address] GFR/1.73 sq M.predicted among blacks MDRD (S/P/Bld) [Vol rate/Area] 86.7 mL/min/{1.73_m2} Normal >60 [facility] Comment on above: Performed By: #### P HOS3, LDH3, DDI2, CRP2, BMP3M, MG3, FERR3, HEMDF, LFT3, ICA ####[address] GFR/1.73 sq M.predicted among non-blacks MDRD (S/P/Bld) [Vol rate/Area] 74.8 mL/min/{1.73_m2} Normal >60 [facility] Comment on above: Result Comment: KDIG O guidelines provide the following GFR categories:Stage GFR(ml/min/1.73 m2) TermsG1 >=90 Normal or highG2 60-89 Mildly decreased*G3a 45-59 Mildly to moderately crkzbhlstB1s 30-44 Moderately to severely decreasedG4 15-29 Severely decreasedG5 <15 Kidney failure*Relative to young adult level.In the absence of evidence of kidney damage, neither GFRcategory G1 nor G2 fulfill the criteria for CKD.The CKD-EPI equation is validated in individuals 18 yearsof age and older. Currently the best equation forestimating glomerular filtration rate (GFR) from serumcreatinine in children is the Bedside Arechiga equation.It is less accurate in patients with extremes of musclemass, restriction of dietary protein, ingestion of creatine,extra-renal metabolism of creatinine, or treatment withmedications that affect renal tubular creatinine secretion. Performed By: #### P HOS3, LDH3, DDI2, CRP2, BMP3M, MG3, FERR3, HEMDF, LFT3, ICA ####[id number] [place], [place] Potassium [Moles/Vol] 3.7 mmol/L Normal 3.5-5.1 [facility] Comment on above: Performed By: #### P HOS3, LDH3, DDI2, CRP2, BMP3M, MG3, FERR3, HEMDF, LFT3, ICA ####[id number] [place], [place] Sodium [Moles/Vol] 142 mmol/L Normal 135-145 [facility] Comment on above: Performed By: #### P HOS3, LDH3, DDI2, CRP2, BMP3M, MG3, FERR3, HEMDF, LFT3, ICA ####[id number] [place], [place] Chloride [Moles/Vol] 105 mmol/L Normal 98-107 [facility] Comment on above: Performed By: #### P HOS3, LDH3, DDI2, CRP2, BMP3M, MG3, FERR3, HEMDF, LFT3, ICA ####[id number] [place] [address] C-Reactive Proteinon 021 CRP [Mass/Vol] 7.8 mg/L High 0.0-6.0 [facility] Comment on above: Result Comment: . Performed By: #### P HOS3, LDH3, DDI2, CRP2, BMP3M, MG3, FERR3, HEMDF, LFT3, ICA ####[id number] [place] [address] CR Chest Portableon 06-17-20 21 CR Chest Portable Normal [facility] Calcium,Ionizedon 06-17-2021 Ionized Ca,Measured 4.40 mg/dL Normal 4.30-5.20 [facility] Comment on above: Performed By: #### P HOS3, LDH3, DDI2, CRP2, BMP3M, MG3, FERR3, HEMDF, LFT3, ICA ####[id number] [place] [address] pH, Ionized Calcium 7.46 Normal 7.31-7.46 [facility] Comment on above: Performed By: #### P HOS3, LDH3, DDI2, CRP2, BMP3M, MG3, FERR3, HEMDF, LFT3, ICA ####[id number] [place] [address] D-Dimer, Innovanceon 021 D-Dimer, Innovance 13.33 mg/L High <0.19-0.50 [facility] Comment on above: Result Comment: Inno carrington D-Dimer values of <0.50 mg/L FEU can be used incombination with a pre-test probability model (e.g. Well's)to exclude pulmonary embolism (PE) disease, as well as jodi in the diagnosis of deep vein thrombosis (DVT). Performed By: #### P HOS3, LDH3, DDI2, CRP2, BMP3M, MG3, FERR3, HEMDF, LFT3, ICA ####[id number] [place] [place] [address] Ferritinon 06-17-2021 Ferritin [Mass/Vol] 209 ng/mL Normal 8-252 [facility] Comment on above: Performed By: #### P HOS3, LDH3, DDI2, CRP2, BMP3M, MG3, FERR3, HEMDF, LFT3, ICA ####[facility] [address] [id number] [facility] [place] [address] Glucose,Bedsideon 06-17-2021 Glucose [Mass/Vol] 239 mg/dL High 70-100 [facility] Comment on above: Result Comment: Test performed by glucose meter. Results may be 10%-15% lowerthan serum/plasma values. (CLIA ID [id number]) Performed By: #### B GLU ####[address] [place] [address] Glucose [Mass/Vol] 268 mg/dL High 70-100 [facility] Comment on above: Result Comment: Test performed by glucose meter. Results may be 10%-15% lowerthan serum/plasma values. (CLIA ID [id number]) Performed By: #### B GLU ####[facility] [employer] [id number] [place] [address] Glucose [Mass/Vol] 252 mg/dL High 70-100 [facility] Comment on above: Result Comment: Test performed by glucose meter. Results may be 10%-15% lowerthan serum/plasma values. (CLIA ID [id number]) Performed By: #### B GLU ####[facility] [employer] [id number] [place] [place] [address] Glucose [Mass/Vol] 260 mg/dL High 70-100 [facility] Comment on above: Result Comment: Test performed by glucose meter. Results may be 10%-15% lowerthan serum/plasma values. (CLIA ID [id number]) Performed By: #### B GLU ####[facility] [employer] [id number] [place] [place] [address] Glucose [Mass/Vol] 272 mg/dL High 70-100 [facility] Comment on above: Result Comment: Test performed by glucose meter. Results may be 10%-15% lowerthan serum/plasma values. (CLIA ID [id number]) Performed By: #### B GLU ####[address] Hemogram w/ Autodiffon 06-17 Abs Baso Cnt 0.0 10*3/uL Normal 0.0-0.2 [facility] Comment on above: Performed By: #### P HOS3, LDH3, DDI2, CRP2, BMP3M, MG3, FERR3, HEMDF, LFT3, ICA ####[id number] [place], [place] Abs Neutrophile Cnt 10.8 10*3/uL High 1.8-7.0 [facility] Comment on above: Performed By: #### P HOS3, LDH3, DDI2, CRP2, BMP3M, MG3, FERR3, HEMDF, LFT3, ICA ####[address] Basophils/100 WBC (Bld) 0.1 % Normal 0.0-2.0 [facility] Comment on above: Performed By: #### P HOS3, LDH3, DDI2, CRP2, BMP3M, MG3, FERR3, HEMDF, LFT3, ICA ####[address] Eosinophils (Bld) [#/Vol] 0.0 10*3/uL Normal 0.0-0.5 [facility] Comment on above: Performed By: #### P HOS3, LDH3, DDI2, CRP2, BMP3M, MG3, FERR3, HEMDF, LFT3, ICA ####[address] Eosinophils/100 WBC (Bld) 0.0 % Low 1.0-6.0 [facility] Comment on above: Performed By: #### P HOS3, LDH3, DDI2, CRP2, BMP3M, MG3, FERR3, HEMDF, LFT3, ICA ####[address] Erythrocyte distribution width (RBC) [Ratio] 21.7 % High 11.5-14.5 [facility] Comment on above: Performed By: #### P HOS3, LDH3, DDI2, CRP2, BMP3M, MG3, FERR3, HEMDF, LFT3, ICA ####[address] Granulocytes/100 WBC (Bld) 90.1 % High 40.0-80.0 [facility] Comment on above: Performed By: #### P HOS3, LDH3, DDI2, CRP2, BMP3M, MG3, FERR3, HEMDF, LFT3, ICA ####[address] Hematocrit (Bld) [Volume fraction] 36.3 % Normal 35.0-47.0 [facility] Comment on above: Performed By: #### P HOS3, LDH3, DDI2, CRP2, BMP3M, MG3, FERR3, HEMDF, LFT3, ICA ####[address] Hemoglobin (Bld) [Mass/Vol] 11.3 g/dL Low 11.7-16.0 [facility] Comment on above: Performed By: #### P HOS3, LDH3, DDI2, CRP2, BMP3M, MG3, FERR3, HEMDF, LFT3, ICA ####[address] Lymphocytes (Bld) [#/Vol] 0.6 10*3/uL Low 1.0-4.3 [facility] Comment on above: Performed By: #### P HOS3, LDH3, DDI2, CRP2, BMP3M, MG3, FERR3, HEMDF, LFT3, ICA ####[address] Lymphocytes/100 WBC (Bld) 4.7 % Low 20.0-40.0 [facility] Comment on above: Performed By: #### P HOS3, LDH3, DDI2, CRP2, BMP3M, MG3, FERR3, HEMDF, LFT3, ICA ####[address] MCH (RBC) [Entitic mass] 23.1 pg Low 26.0-34.0 [facility] Comment on above: Performed By: #### P HOS3, LDH3, DDI2, CRP2, BMP3M, MG3, FERR3, HEMDF, LFT3, ICA ####[address] MCHC 31.3 % Low 32.0-36.0 [facility] Comment on above: Performed By: #### P HOS3, LDH3, DDI2, CRP2, BMP3M, MG3, FERR3, HEMDF, LFT3, ICA ####[address] MCV (RBC) [Entitic vol] 74.0 fL Low 79.0-98.0 [facility] Comment on above: Performed By: #### P HOS3, LDH3, DDI2, CRP2, BMP3M, MG3, FERR3, HEMDF, LFT3, ICA ####[address] Monocytes (Bld) [#/Vol] 0.6 10*3/uL Normal 0.0-0.8 [facility] Comment on above: Performed By: #### P HOS3, LDH3, DDI2, CRP2, BMP3M, MG3, FERR3, HEMDF, LFT3, ICA ####[address] Monocytes/100 WBC (Bld) 5.1 % Normal 2.0-10.0 [facility] Comment on above: Performed By: #### P HOS3, LDH3, DDI2, CRP2, BMP3M, MG3, FERR3, HEMDF, LFT3, ICA ####[address] Platelet mean volume (Bld) [Entitic vol] 9.4 fL Normal 7.4-10.4 [facility] Comment on above: Performed By: #### P HOS3, LDH3, DDI2, CRP2, BMP3M, MG3, FERR3, HEMDF, LFT3, ICA ####[address] [address] Platelets (Bld) [#/Vol] 148 10*3/uL Normal 140-440 [facility] Comment on above: Performed By: #### P HOS3, LDH3, DDI2, CRP2, BMP3M, MG3, FERR3, HEMDF, LFT3, ICA ####[address] RBC (Bld) [#/Vol] 4.91 10*6/uL Normal 3.80-5.20 [facility] Comment on above: Performed By: #### P HOS3, LDH3, DDI2, CRP2, BMP3M, MG3, FERR3, HEMDF, LFT3, ICA ####[id number] [place], [place] WBC (Bld) [#/Vol] 12.0 10*3/uL High 3.6-10.7 [facility] Comment on above: Performed By: #### P HOS3, LDH3, DDI2, CRP2, BMP3M, MG3, FERR3, HEMDF, LFT3, ICA ####[address] Hepatic Functionon 1 ALP [Catalytic activity/Vol] 87 U/L Normal 38-126 [facility] Comment on above: Performed By: #### P HOS3, LDH3, DDI2, CRP2, BMP3M, MG3, FERR3, HEMDF, LFT3, ICA ####[address] ALT [Catalytic activity/Vol] 102 U/L High 0-34 [facility] Comment on above: Result Comment: The ALT test is performed by an updated assay method.Please note that the reference intervals have beenchanged and are now sex specific. Performed By: #### P HOS3, LDH3, DDI2, CRP2, BMP3M, MG3, FERR3, HEMDF, LFT3, ICA ####[id number] [place], [place] AST [Catalytic activity/Vol] 55 U/L High 15-46 [facility] Comment on above: Performed By: #### P HOS3, LDH3, DDI2, CRP2, BMP3M, MG3, FERR3, HEMDF, LFT3, ICA ####[id number] [place], [place] Bilirubin [Mass/Vol] 0.7 mg/dL Normal 0.2-1.3 [facility] Comment on above: Performed By: #### P HOS3, LDH3, DDI2, CRP2, BMP3M, MG3, FERR3, HEMDF, LFT3, ICA ####[address] Bilirubin.indirect [Mass/Vol] 0.0 mg/dL Normal 0.0-0.3 [facility] Comment on above: Performed By: #### P HOS3, LDH3, DDI2, CRP2, BMP3M, MG3, FERR3, HEMDF, LFT3, ICA ####[address] Protein [Mass/Vol] 6.4 g/dL Normal 6.3-8.2 [facility] Comment on above: Performed By: #### P HOS3, LDH3, DDI2, CRP2, BMP3M, MG3, FERR3, HEMDF, LFT3, ICA ####[id number] [place], [place] Albumin [Mass/Vol] 3.3 g/dL Low 3.5-5.0 [facility] Comment on above: Performed By: #### P HOS3, LDH3, DDI2, CRP2, BMP3M, MG3, FERR3, HEMDF, LFT3, ICA ####[id number] [place] [address] LDHon 06-17-2021 LDH 374 U/L High 120-246 [facility] Comment on above: Performed By: #### P HOS3, LDH3, DDI2, CRP2, BMP3M, MG3, FERR3, HEMDF, LFT3, ICA ####[id number] [place] [address] Magnesiumon 06-17-2021 Magnesium [Mass/Vol] 2.5 mg/dL High 1.6-2.3 [facility] Comment on above: Performed By: #### P HOS3, LDH3, DDI2, CRP2, BMP3M, MG3, FERR3, HEMDF, LFT3, ICA ####[address] Phosphoruson 06-17-2021 Phosphate [Mass/Vol] 4.1 mg/dL Normal 2.5-4.5 [facility] Comment on above: Performed By: #### P HOS3, LDH3, DDI2, CRP2, BMP3M, MG3, FERR3, HEMDF, LFT3, ICA ####[id number] . [place] [address] Arterial Blood Gaseson 06-16 CO2 [Moles/Vol] 32.9 mmol/L High 23.0-27.0 [facility] Comment on above: Performed By: #### A BG ####[id number] [place], [place] HCO3 (Bld) [Moles/Vol] 31.6 mmol/L High 21.0-25.0 [facility] Comment on above: Performed By: #### A BG ####[id number] [place], [place] Hemoglobin (Bld) [Mass/Vol] 12.7 g/dL Normal ScreenOnly [facility] Comment on above: Performed By: #### A BG ####[address] Oxygen (Bld) [Partial pressure] 84.9 mm[Hg] Normal 80.0-100.0 [facility] Comment on above: Performed By: #### A BG ####[address] Oxygen saturation in Blood 95.6 % Normal 95.0-100.0 [facility] Comment on above: Performed By: #### A BG ####[address] pCO2 42.5 mm[Hg] Normal 35.0-45.0 [facility] Comment on above: Performed By: #### A BG ####[address] pH 7.489 High 7.350-7.450 [facility] Comment on above: Performed By: #### A BG ####[address] Std Base Excess 7.5 mmol/L High -3.0-3.0 [facility] Comment on above: Performed By: #### A BG ####[address] FIO2 No data Normal [facility] Comment on above: Performed By: #### A BG ####[address] Basic Metabolic Panelon 07- Chloride [Moles/Vol] 107 mmol/L Normal 98-107 [facility] Comment on above: Performed By: #### C RP2, BMP3M, FERR3, LDH3, DDI2, MG3, ICA, LFT3, PHOS3 ####[id number] [place], [place] Sodium [Moles/Vol] 145 mmol/L Normal 135-145 [facility] Comment on above: Performed By: #### C RP2, BMP3M, FERR3, LDH3, DDI2, MG3, ICA, LFT3, PHOS3 ####[id number] [place] Calcium [Mass/Vol] 8.8 mg/dL Normal 8.4-10.4 [facility] Comment on above: Performed By: #### C RP2, BMP3M, FERR3, LDH3, DDI2, MG3, ICA, LFT3, PHOS3 ####[id number] [place], [place] Anion gap [Moles/Vol] 6 mmol/L Normal 3-13 [facility] Comment on above: Performed By: #### C RP2, BMP3M, FERR3, LDH3, DDI2, MG3, ICA, LFT3, PHOS3 ####[id number] [place] CO2 [Moles/Vol] 32 mmol/L High 22-30 [facility] Comment on above: Performed By: #### C RP2, BMP3M, FERR3, LDH3, DDI2, MG3, ICA, LFT3, PHOS3 ####[id number] [place], [place] Glucose [Mass/Vol] 223 mg/dL High 70-100 [facility] Comment on above: Performed By: #### C RP2, BMP3M, FERR3, LDH3, DDI2, MG3, ICA, LFT3, PHOS3 ####[id number] [place] Urea nitrogen [Mass/Vol] 56 mg/dL High 7-20 [facility] Comment on above: Performed By: #### C RP2, BMP3M, FERR3, LDH3, DDI2, MG3, ICA, LFT3, PHOS3 ####[id number] [place] Creatinine [Mass/Vol] 0.90 mg/dL Normal 0.52-1.25 [facility] Comment on above: Performed By: #### C RP2, BMP3M, FERR3, LDH3, DDI2, MG3, ICA, LFT3, PHOS3 ####[id number] [place], [place] GFR/1.73 sq M.predicted among blacks MDRD (S/P/Bld) [Vol rate/Area] 84.4 mL/min/{1.73_m2} Normal >60 [facility] Comment on above: Performed By: #### C RP2, BMP3M, FERR3, LDH3, DDI2, MG3, ICA, LFT3, PHOS3 ####[id number] [place], [place] GFR/1.73 sq M.predicted among non-blacks MDRD (S/P/Bld) [Vol rate/Area] 72.8 mL/min/{1.73_m2} Normal >60 [facility] Comment on above: Result Comment: KDIG O guidelines provide the following GFR categories:Stage GFR(ml/min/1.73 m2) TermsG1 >=90 Normal or highG2 60-89 Mildly decreased*G3a 45-59 Mildly to moderately gqrgipoeeZ3g 30-44 Moderately to severely decreasedG4 15-29 Severely decreasedG5 <15 Kidney failure*Relative to young adult level.In the absence of evidence of kidney damage, neither GFRcategory G1 nor G2 fulfill the criteria for CKD.The CKD-EPI equation is validated in individuals 18 yearsof age and older. Currently the best equation forestimating glomerular filtration rate (GFR) from serumcreatinine in children is the Bedside Arechiga equation.It is less accurate in patients with extremes of musclemass, restriction of dietary protein, ingestion of creatine,extra-renal metabolism of creatinine, or treatment withmedications that affect renal tubular creatinine secretion. Performed By: #### C RP2, BMP3M, FERR3, LDH3, DDI2, MG3, ICA, LFT3, PHOS3 ####[facility] [id number] [place], [place] Potassium [Moles/Vol] 4.2 mmol/L Normal 3.5-5.1 [facility] Comment on above: Performed By: #### C RP2, BMP3M, FERR3, LDH3, DDI2, MG3, ICA, LFT3, PHOS3 ####[address] C-Reactive Proteinon 021 CRP [Mass/Vol] 7.8 mg/L High 0.0-6.0 [facility] Comment on above: Result Comment: . Performed By: #### C RP2, BMP3M, FERR3, LDH3, DDI2, MG3, ICA, LFT3, PHOS3 ####[id number] [place], [place] CR Chest Portableon 06-16-20 21 CR Chest Portable Normal [facility] Calcium,Ionizedon 06-16-2021 Ionized Ca,Measured 4.40 mg/dL Normal 4.30-5.20 [facility] Comment on above: Performed By: #### C RP2, BMP3M, FERR3, LDH3, DDI2, MG3, ICA, LFT3, PHOS3 ####[facility] [id number] [place], [place] pH, Ionized Calcium 7.51 High 7.31-7.46 [facility] Comment on above: Performed By: #### C RP2, BMP3M, FERR3, LDH3, DDI2, MG3, ICA, LFT3, PHOS3 ####[facility] [address] [place], [place] Complete Urinalysison 2020 Appearance (U) Ex.Turbid Abnormal Clear [facility] Comment on above: Result Comment: . Performed By: #### C UA2 ####[facility] [id number] [place], [place] Bacteria Moderate Abnormal Negative [facility] Comment on above: Result Comment: . Performed By: #### C UA2 ####[facility] [employer] [address] Bilirubin,Urine Negative Normal Negative [facility] Comment on above: Result Comment: . Performed By: #### C UA2 ####[facility] [employer] [address] Color (U) Light-Yellow Normal Lt. Yellow [facility] Comment on above: Result Comment: . Performed By: #### C UA2 ####[id number] . [place], [place] Glucose Ql (U) Normal Normal Normal (<70) [facility] Comment on above: Result Comment: . Performed By: #### C UA2 ####[address] [place], [place] Ketone,Urine Negative Normal Negative [facility] Comment on above: Result Comment: . Performed By: #### C UA2 ####[address] [place], [place] Leukocytes,Urine 250 [place]/uL Abnormal Negative [facility] Comment on above: Result Comment: . Performed By: #### C UA2 ####[address] [place], [place] Mucous Threads Many Abnormal Negative [facility] Comment on above: Result Comment: . Performed By: #### C UA2 ####[address] [place] Nitrites,Urine Negative Normal Negative [facility] Comment on above: Result Comment: . Performed By: #### C UA2 ####[address] Occult Blood,Urine > 1.0 Abnormal Negative [facility] Comment on above: Result Comment: . Performed By: #### C UA2 ####[address] [place] pH,Urine 5.5 Normal 5.0-8.0 [facility] Comment on above: Result Comment: . Performed By: #### C UA2 ####[address] RBC LM.HPF (Urine sed) [#/Area] /[HPF] Abnormal 0-2 [facility] Comment on above: Result Comment: . Performed By: #### C UA2 ####[address] Specific [place],Urine 1.008 Normal 1.005 - 1.030 [facility] Comment on above: Result Comment: . Performed By: #### C UA2 ####[facility] [place] [address] Squamous Epithelial 0 - 2 Normal 3-5 [facility] Comment on above: Result Comment: . Performed By: #### C UA2 ####[id number] [place] [address] Total Protein,Urine Negative Normal Negative [facility] Comment on above: Result Comment: . Performed By: #### C UA2 ####[id number] [place] [address] Uric Acid Crystals Few Abnormal Negative [facility] Comment on above: Result Comment: . Performed By: #### C UA2 ####[id number] [place] [address] Urobilinogen,Urine Normal Normal Normal (0-1) [facility] Comment on above: Result Comment: . Performed By: #### C UA2 ####[id number] [place] [address] WBC, Urine 11 - 25 Abnormal 0-5 [facility] Comment on above: Result Comment: . Performed By: #### C UA2 ####[id number] [place] [address] D-Dimer, Innovanceon 021 D-Dimer, Innovance 23.52 mg/L High <0.19-0.50 [facility] Comment on above: Result Comment: Inno carrington D-Dimer values of <0.50 mg/L FEU can be used incombination with a pre-test probability model (e.g. Well's)to exclude pulmonary embolism (PE) disease, as well as jodi in the diagnosis of deep vein thrombosis (DVT). Performed By: #### C RP2, BMP3M, FERR3, LDH3, DDI2, MG3, ICA, LFT3, PHOS3 ####[id number] [place] [address] Ferritinon 06-16-2021 Ferritin [Mass/Vol] 291 ng/mL High 8-252 [facility] Comment on above: Performed By: #### C RP2, BMP3M, FERR3, LDH3, DDI2, MG3, ICA, LFT3, PHOS3 ####[id number] [place] [address] Glucose,Bedsideon 06-16-2021 Glucose [Mass/Vol] 252 mg/dL High 70-100 [facility] Comment on above: Result Comment: Test performed by glucose meter. Results may be 10%-15% lowerthan serum/plasma values. (CLIA ID [id number]) Performed By: #### B GLU ####[id number] [place] [address] Glucose [Mass/Vol] 273 mg/dL High 70-100 [facility] Comment on above: Result Comment: Test performed by glucose meter. Results may be 10%-15% lowerthan serum/plasma values. (CLIA ID [id number]) Performed By: #### B GLU ####[facility] [address] [id number] [place] [address] Glucose [Mass/Vol] 220 mg/dL High 70-100 [facility] Comment on above: Result Comment: Test performed by glucose meter. Results may be 10%-15% lowerthan serum/plasma values. (CLIA ID [id number]) Performed By: #### B GLU ####[address] [place] [address] Glucose [Mass/Vol] 215 mg/dL High 70-100 [facility] Comment on above: Result Comment: Test performed by glucose meter. Results may be 10%-15% lowerthan serum/plasma values. (CLIA ID [id number]) Performed By: #### B GLU ####[id number] [place] [address] Hepatic Functionon Albumin [Mass/Vol] 3.4 g/dL Low 3.5-5.0 [facility] Comment on above: Performed By: #### C RP2, BMP3M, FERR3, LDH3, DDI2, MG3, ICA, LFT3, PHOS3 ####[id number] [place], [place] ALP [Catalytic activity/Vol] 83 U/L Normal 38-126 [facility] Comment on above: Performed By: #### C RP2, BMP3M, FERR3, LDH3, DDI2, MG3, ICA, LFT3, PHOS3 ####[id number] [place], [place] ALT [Catalytic activity/Vol] 133 U/L High 0-34 [facility] Comment on above: Result Comment: The ALT test is performed by an updated assay method.Please note that the reference intervals have beenchanged and are now sex specific. Performed By: #### C RP2, BMP3M, FERR3, LDH3, DDI2, MG3, ICA, LFT3, PHOS3 ####[id number] [place], [place] AST [Catalytic activity/Vol] 110 U/L High 15-46 [facility] Comment on above: Performed By: #### C RP2, BMP3M, FERR3, LDH3, DDI2, MG3, ICA, LFT3, PHOS3 ####[id number] [place], [place] Bilirubin [Mass/Vol] 0.8 mg/dL Normal 0.2-1.3 [facility] Comment on above: Performed By: #### C RP2, BMP3M, FERR3, LDH3, DDI2, MG3, ICA, LFT3, PHOS3 ####[id number] [place], [place] Protein [Mass/Vol] 6.6 g/dL Normal 6.3-8.2 [facility] Comment on above: Performed By: #### C RP2, BMP3M, FERR3, LDH3, DDI2, MG3, ICA, LFT3, PHOS3 ####[id number] [place], [place] Bilirubin.indirect [Mass/Vol] 0.0 mg/dL Normal 0.0-0.3 [facility] Comment on above: Performed By: #### C RP2, BMP3M, FERR3, LDH3, DDI2, MG3, ICA, LFT3, PHOS3 ####[id number] [place] [address] LDHon 06-16-2021 LDH 446 U/L High 120-246 [facility] Comment on above: Performed By: #### C RP2, BMP3M, FERR3, LDH3, DDI2, MG3, ICA, LFT3, PHOS3 ####[address] [address] Lactic Acidon 06-16-2021 Lactate [Moles/Vol] 0.9 mmol/L Normal 0.7-2.0 [facility] Comment on above: Performed By: #### L ACT3, PCAL ####[address] [address] Magnesiumon 06-16-2021 Magnesium [Mass/Vol] 2.6 mg/dL High 1.6-2.3 [facility] Comment on above: Performed By: #### C RP2, BMP3M, FERR3, LDH3, DDI2, MG3, ICA, LFT3, PHOS3 ####[address] [place] [address] Phosphoruson 06-16-2021 Phosphate [Mass/Vol] 4.5 mg/dL Normal 2.5-4.5 [facility] Comment on above: Performed By: #### C RP2, BMP3M, FERR3, LDH3, DDI2, MG3, ICA, LFT3, PHOS3 ####[address] [address] Procalcitoninon 06-16-2021 Procalcitonin 0.08 ng/mL Normal 0.00-0.09 [facility] Comment on above: Performed By: #### P OLESYA ####[address] [address] Procalcitonin 0.08 ng/mL Normal 0.00-0.09 [facility] Comment on above: Performed By: #### L ACT3, PCAL ####[id number] [place], [place] Interpretation See Below Normal [facility] Comment on above: Result Comment: PCT <0.50 = Low risk of severe sepsis and/or septic shock.PCT >2.00 = High risk of severe sepsis and/or septic shock. Performed By: #### P OLESYA ####[address] Interpretation See Below Normal [facility] Comment on above: Result Comment: PCT <0.50 = Low risk of severe sepsis and/or septic shock.PCT >2.00 = High risk of severe sepsis and/or septic shock. Performed By: #### L ACT3, PCAL ####[address] Sodiumon 06-16-2021 Sodium [Moles/Vol] 144 mmol/L Normal 135-145 [facility] Comment on above: Performed By: #### N A3 ####[address] Staph Aureus Complete Nasalo n 06-16-2021 Staph Aureus Complete Nasal Normal [facility] Comment on above: Performed By: #### S APCR ####[address] Arterial Blood Gaseson 06-15 CO2 [Moles/Vol] 34.5 mmol/L High 23.0-27.0 [facility] Comment on above: Performed By: #### A BG ####[address] HCO3 (Bld) [Moles/Vol] 33.2 mmol/L High 21.0-25.0 [facility] Comment on above: Performed By: #### A BG ####[address] Hemoglobin (Bld) [Mass/Vol] 13.3 g/dL Normal ScreenOnly [facility] Comment on above: Performed By: #### A BG ####[id number] [place], [place] Oxygen (Bld) [Partial pressure] 68.3 mm[Hg] Low 80.0-100.0 [facility] Comment on above: Performed By: #### A BG ####[address] [place], [place] Oxygen saturation in Blood 92.8 % Low 95.0-100.0 [facility] Comment on above: Performed By: #### A BG ####[address] [place] pCO2 41.8 mm[Hg] Normal 35.0-45.0 [facility] Comment on above: Performed By: #### A BG ####[address] pH 7.518 High 7.350-7.450 [facility] Comment on above: Performed By: #### A BG ####[address] Std Base Excess 9.4 mmol/L High -3.0-3.0 [facility] Comment on above: Performed By: #### A BG ####[address] FIO2 No data Normal [facility] Comment on above: Performed By: #### A BG ####[address] Basic Metabolic Panelon - Calcium [Mass/Vol] 9.1 mg/dL Normal 8.4-10.4 [facility] Comment on above: Performed By: #### I CA, DDI2, PHOS3, CRP2, MG3, BMP3M, HEMDF, LFT3, LDH3, FERR3 ####[address] Glucose [Mass/Vol] 157 mg/dL High 70-100 [facility] Comment on above: Performed By: #### I CA, DDI2, PHOS3, CRP2, MG3, BMP3M, HEMDF, LFT3, LDH3, FERR3 ####[id number] [place], [place] Anion gap [Moles/Vol] 5 mmol/L Normal 3-13 [facility] Comment on above: Performed By: #### I CA, DDI2, PHOS3, CRP2, MG3, BMP3M, HEMDF, LFT3, LDH3, FERR3 ####[id number] [place], [place] CO2 [Moles/Vol] 36 mmol/L High 22-30 [facility] Comment on above: Performed By: #### I CA, DDI2, PHOS3, CRP2, MG3, BMP3M, HEMDF, LFT3, LDH3, FERR3 ####[address] Urea nitrogen [Mass/Vol] 51 mg/dL High 7-20 [facility] Comment on above: Performed By: #### I CA, DDI2, PHOS3, CRP2, MG3, BMP3M, HEMDF, LFT3, LDH3, FERR3 ####[address] Creatinine [Mass/Vol] 0.88 mg/dL Normal 0.52-1.25 [facility] Comment on above: Performed By: #### I CA, DDI2, PHOS3, CRP2, MG3, BMP3M, HEMDF, LFT3, LDH3, FERR3 ####[address] GFR/1.73 sq M.predicted among blacks MDRD (S/P/Bld) [Vol rate/Area] 86.7 mL/min/{1.73_m2} Normal >60 [facility] Comment on above: Performed By: #### I CA, DDI2, PHOS3, CRP2, MG3, BMP3M, HEMDF, LFT3, LDH3, FERR3 ####[address] GFR/1.73 sq M.predicted among non-blacks MDRD (S/P/Bld) [Vol rate/Area] 74.8 mL/min/{1.73_m2} Normal >60 [facility] Comment on above: Result Comment: KDIG O guidelines provide the following GFR categories:Stage GFR(ml/min/1.73 m2) TermsG1 >=90 Normal or highG2 60-89 Mildly decreased*G3a 45-59 Mildly to moderately ehisfatvdX3f 30-44 Moderately to severely decreasedG4 15-29 Severely decreasedG5 <15 Kidney failure*Relative to young adult level.In the absence of evidence of kidney damage, neither GFRcategory G1 nor G2 fulfill the criteria for CKD.The CKD-EPI equation is validated in individuals 18 yearsof age and older. Currently the best equation forestimating glomerular filtration rate (GFR) from serumcreatinine in children is the Bedside Arechiga equation.It is less accurate in patients with extremes of musclemass, restriction of dietary protein, ingestion of creatine,extra-renal metabolism of creatinine, or treatment withmedications that affect renal tubular creatinine secretion. Performed By: #### I CA, DDI2, PHOS3, CRP2, MG3, BMP3M, HEMDF, LFT3, LDH3, FERR3 ####[id number] [place], [place] Potassium [Moles/Vol] 4.5 mmol/L Normal 3.5-5.1 [facility] Comment on above: Performed By: #### I CA, DDI2, PHOS3, CRP2, MG3, BMP3M, HEMDF, LFT3, LDH3, FERR3 ####[id number] [place], [place] Sodium [Moles/Vol] 146 mmol/L High 135-145 [facility] Comment on above: Performed By: #### I CA, DDI2, PHOS3, CRP2, MG3, BMP3M, HEMDF, LFT3, LDH3, FERR3 ####[id number] [place] [address] Chloride [Moles/Vol] 106 mmol/L Normal 98-107 [facility] Comment on above: Performed By: #### I CA, DDI2, PHOS3, CRP2, MG3, BMP3M, HEMDF, LFT3, LDH3, FERR3 ####[id number] [place] [address] C-Reactive Proteinon 021 CRP [Mass/Vol] 7.0 mg/L High 0.0-6.0 [facility] Comment on above: Result Comment: . Performed By: #### I CA, DDI2, PHOS3, CRP2, MG3, BMP3M, HEMDF, LFT3, LDH3, FERR3 ####[id number] [place] [address] CR Chest Portableon 06-15-20 21 CR Chest Portable Normal [facility] Calcium,Ionizedon 06-15-2021 Ionized Ca,Measured 4.00 mg/dL Low 4.30-5.20 [facility] Comment on above: Performed By: #### I CA, DDI2, PHOS3, CRP2, MG3, BMP3M, HEMDF, LFT3, LDH3, FERR3 ####[address] [address] pH, Ionized Calcium 7.52 High 7.31-7.46 [facility] Comment on above: Performed By: #### I CA, DDI2, PHOS3, CRP2, MG3, BMP3M, HEMDF, LFT3, LDH3, FERR3 ####[address] [address] D-Dimer, Innovanceon 021 D-Dimer, Innovance 25.22 mg/L High <0.19-0.50 [facility] Comment on above: Result Comment: Inno [place] D-Dimer values of <0.50 mg/L FEU can be used incombination with a pre-test probability model (e.g. Well's)to exclude pulmonary embolism (PE) disease, as well as jodi in the diagnosis of deep vein thrombosis (DVT). Performed By: #### I CA, DDI2, PHOS3, CRP2, MG3, BMP3M, HEMDF, LFT3, LDH3, FERR3 ####[facility] [employer] [id number] [facility] [place] [address] Ferritinon 06-15-2021 Ferritin [Mass/Vol] 123 ng/mL Normal 8-252 [facility] Comment on above: Performed By: #### I CA, DDI2, PHOS3, CRP2, MG3, BMP3M, HEMDF, LFT3, LDH3, FERR3 ####[facility] [address] [id number] [facility] [place] [address] Glucose,Bedsideon 06-15-2021 Glucose [Mass/Vol] 163 mg/dL High 70-100 [facility] Comment on above: Result Comment: Test performed by glucose meter. Results may be 10%-15% lowerthan serum/plasma values. (CLIA ID [id number]) Performed By: #### B GLU ####[facility] [employer] [id number] [place] [address] Glucose [Mass/Vol] 187 mg/dL High 70-100 [facility] Comment on above: Result Comment: Test performed by glucose meter. Results may be 10%-15% lowerthan serum/plasma values. (CLIA ID [id number]) Performed By: #### B GLU ####[facility] [address] [place] [address] Glucose [Mass/Vol] 148 mg/dL High 70-100 [facility] Comment on above: Result Comment: Test performed by glucose meter. Results may be 10%-15% lowerthan serum/plasma values. (CLIA ID [id number]) Performed By: #### B GLU ####[facility] [address] [id number] [place] [address] Glucose [Mass/Vol] 186 mg/dL High 70-100 [facility] Comment on above: Result Comment: Test performed by glucose meter. Results may be 10%-15% lowerthan serum/plasma values. (CLIA ID [id number]) Performed By: #### B GLU ####[facility] [employer] [id number] [facility] [place] [address] Hemogram w/ Autodiffon 06-15 Abs Baso Cnt 0.0 10*3/uL Normal 0.0-0.2 [facility] Comment on above: Performed By: #### I CA, DDI2, PHOS3, CRP2, MG3, BMP3M, HEMDF, LFT3, LDH3, FERR3 ####[address] Abs Neutrophile Cnt 12.2 10*3/uL High 1.8-7.0 [facility] Comment on above: Performed By: #### I CA, DDI2, PHOS3, CRP2, MG3, BMP3M, HEMDF, LFT3, LDH3, FERR3 ####[address] Basophils/100 WBC (Bld) 0.2 % Normal 0.0-2.0 [facility] Comment on above: Performed By: #### I CA, DDI2, PHOS3, CRP2, MG3, BMP3M, HEMDF, LFT3, LDH3, FERR3 ####[address] Eosinophils (Bld) [#/Vol] 0.0 10*3/uL Normal 0.0-0.5 [facility] Comment on above: Performed By: #### I CA, DDI2, PHOS3, CRP2, MG3, BMP3M, HEMDF, LFT3, LDH3, FERR3 ####[address] Eosinophils/100 WBC (Bld) 0.0 % Low 1.0-6.0 [facility] Comment on above: Performed By: #### I CA, DDI2, PHOS3, CRP2, MG3, BMP3M, HEMDF, LFT3, LDH3, FERR3 ####[address] Erythrocyte distribution width (RBC) [Ratio] 21.8 % High 11.5-14.5 [facility] Comment on above: Performed By: #### I CA, DDI2, PHOS3, CRP2, MG3, BMP3M, HEMDF, LFT3, LDH3, FERR3 ####[address] Granulocytes/100 WBC (Bld) 84.4 % High 40.0-80.0 [facility] Comment on above: Performed By: #### I CA, DDI2, PHOS3, CRP2, MG3, BMP3M, HEMDF, LFT3, LDH3, FERR3 ####[address] Hematocrit (Bld) [Volume fraction] 39.6 % Normal 35.0-47.0 [facility] Comment on above: Performed By: #### I CA, DDI2, PHOS3, CRP2, MG3, BMP3M, HEMDF, LFT3, LDH3, FERR3 ####[address] Hemoglobin (Bld) [Mass/Vol] 12.4 g/dL Normal 11.7-16.0 [facility] Comment on above: Performed By: #### I CA, DDI2, PHOS3, CRP2, MG3, BMP3M, HEMDF, LFT3, LDH3, FERR3 ####[address] Lymphocytes (Bld) [#/Vol] 0.9 10*3/uL Low 1.0-4.3 [facility] Comment on above: Performed By: #### I CA, DDI2, PHOS3, CRP2, MG3, BMP3M, HEMDF, LFT3, LDH3, FERR3 ####[address] Lymphocytes/100 WBC (Bld) 6.3 % Low 20.0-40.0 [facility] Comment on above: Performed By: #### I CA, DDI2, PHOS3, CRP2, MG3, BMP3M, HEMDF, LFT3, LDH3, FERR3 ####[address] MCH (RBC) [Entitic mass] 22.8 pg Low 26.0-34.0 [facility] Comment on above: Performed By: #### I CA, DDI2, PHOS3, CRP2, MG3, BMP3M, HEMDF, LFT3, LDH3, FERR3 ####[id number] [place], [place] MCHC 31.2 % Low 32.0-36.0 [facility] Comment on above: Performed By: #### I CA, DDI2, PHOS3, CRP2, MG3, BMP3M, HEMDF, LFT3, LDH3, FERR3 ####[id number] [place], [place] MCV (RBC) [Entitic vol] 73.1 fL Low 79.0-98.0 [facility] Comment on above: Performed By: #### I CA, DDI2, PHOS3, CRP2, MG3, BMP3M, HEMDF, LFT3, LDH3, FERR3 ####[id number] [place], [place] Monocytes (Bld) [#/Vol] 1.3 10*3/uL High 0.0-0.8 [facility] Comment on above: Performed By: #### I CA, DDI2, PHOS3, CRP2, MG3, BMP3M, HEMDF, LFT3, LDH3, FERR3 ####[id number] [place], [place] Monocytes/100 WBC (Bld) 9.1 % Normal 2.0-10.0 [facility] Comment on above: Performed By: #### I CA, DDI2, PHOS3, CRP2, MG3, BMP3M, HEMDF, LFT3, LDH3, FERR3 ####[id number] [place], [place] Platelet mean volume (Bld) [Entitic vol] 8.7 fL Normal 7.4-10.4 [facility] Comment on above: Performed By: #### I CA, DDI2, PHOS3, CRP2, MG3, BMP3M, HEMDF, LFT3, LDH3, FERR3 ####[id number] [place], [place] Platelets (Bld) [#/Vol] 209 10*3/uL Normal 140-440 [facility] Comment on above: Performed By: #### I CA, DDI2, PHOS3, CRP2, MG3, BMP3M, HEMDF, LFT3, LDH3, FERR3 ####[id number] [place], [place] RBC (Bld) [#/Vol] 5.42 10*6/uL High 3.80-5.20 [facility] Comment on above: Performed By: #### I CA, DDI2, PHOS3, CRP2, MG3, BMP3M, HEMDF, LFT3, LDH3, FERR3 ####[id number] [place], [place] WBC (Bld) [#/Vol] 14.4 10*3/uL High 3.6-10.7 [facility] Comment on above: Performed By: #### I CA, DDI2, PHOS3, CRP2, MG3, BMP3M, HEMDF, LFT3, LDH3, FERR3 ####[address] Hepatic Functionon 1 ALP [Catalytic activity/Vol] 87 U/L Normal 38-126 [facility] Comment on above: Performed By: #### I CA, DDI2, PHOS3, CRP2, MG3, BMP3M, HEMDF, LFT3, LDH3, FERR3 ####[address] ALT [Catalytic activity/Vol] 68 U/L High 0-34 [facility] Comment on above: Result Comment: The ALT test is performed by an updated assay method.Please note that the reference intervals have beenchanged and are now sex specific. Performed By: #### I CA, DDI2, PHOS3, CRP2, MG3, BMP3M, HEMDF, LFT3, LDH3, FERR3 ####[address] AST [Catalytic activity/Vol] 61 U/L High 15-46 [facility] Comment on above: Performed By: #### I CA, DDI2, PHOS3, CRP2, MG3, BMP3M, HEMDF, LFT3, LDH3, FERR3 ####[id number] [place], [place] Bilirubin [Mass/Vol] 0.9 mg/dL Normal 0.2-1.3 [facility] Comment on above: Performed By: #### I CA, DDI2, PHOS3, CRP2, MG3, BMP3M, HEMDF, LFT3, LDH3, FERR3 ####[address] Bilirubin.indirect [Mass/Vol] 0.0 mg/dL Normal 0.0-0.3 [facility] Comment on above: Performed By: #### I CA, DDI2, PHOS3, CRP2, MG3, BMP3M, HEMDF, LFT3, LDH3, FERR3 ####[address] Protein [Mass/Vol] 6.9 g/dL Normal 6.3-8.2 [facility] Comment on above: Performed By: #### I CA, DDI2, PHOS3, CRP2, MG3, BMP3M, HEMDF, LFT3, LDH3, FERR3 ####[address] Albumin [Mass/Vol] 3.6 g/dL Normal 3.5-5.0 [facility] Comment on above: Performed By: #### I CA, DDI2, PHOS3, CRP2, MG3, BMP3M, HEMDF, LFT3, LDH3, FERR3 ####[address] LDHon 06-15-2021 LDH 446 U/L High 120-246 [facility] Comment on above: Performed By: #### I CA, DDI2, PHOS3, CRP2, MG3, BMP3M, HEMDF, LFT3, LDH3, FERR3 ####[id number] [place], [place] Magnesiumon 06-15-2021 Magnesium [Mass/Vol] 2.5 mg/dL High 1.6-2.3 [facility] Comment on above: Performed By: #### I CA, DDI2, PHOS3, CRP2, MG3, BMP3M, HEMDF, LFT3, LDH3, FERR3 ####[id number] [place], [place] Phosphoruson 06-15-2021 Phosphate [Mass/Vol] 4.2 mg/dL Normal 2.5-4.5 [facility] Comment on above: Performed By: #### I CA, DDI2, PHOS3, CRP2, MG3, BMP3M, HEMDF, LFT3, LDH3, FERR3 ####[address] [place], [place] STAIN GRAMon 06-15-2021 STAIN GRAM Normal [facility] Comment on above: Performed By: #### C S/RE ####[address] [place] [address] [address] [place] #### S/GRM ####[address] VL Venous Duplex US Lower Ex t Bilateralon 06-15-2021 VL Venous Duplex US Lower Ext Bilateral Normal [facility] Arterial Blood Gaseson 06-14 CO2 [Moles/Vol] 33.3 mmol/L High 23.0-27.0 [facility] Comment on above: Performed By: #### A BG ####[address] [address] [place], [place] HCO3 (Bld) [Moles/Vol] 32.0 mmol/L High 21.0-25.0 [facility] Comment on above: Performed By: #### A BG ####[address] Hemoglobin (Bld) [Mass/Vol] 12.4 g/dL Normal ScreenOnly [facility] Comment on above: Performed By: #### A BG ####[id number] [place], [place] Oxygen (Bld) [Partial pressure] 83.7 mm[Hg] Normal 80.0-100.0 [facility] Comment on above: Performed By: #### A BG ####[id number] [place], [place] Oxygen saturation in Blood 95.6 % Normal 95.0-100.0 [facility] Comment on above: Performed By: #### A BG ####[id number] [place] pCO2 41.9 mm[Hg] Normal 35.0-45.0 [facility] Comment on above: Performed By: #### A BG ####[address] pH 7.501 High 7.350-7.450 [facility] Comment on above: Performed By: #### A BG ####[address] Std Base Excess 8.1 mmol/L High -3.0-3.0 [facility] Comment on above: Performed By: #### A BG ####[address] FIO2 No data Normal [facility] Comment on above: Performed By: #### A BG ####[address] Basic Metabolic Panelon 07-1 Calcium [Mass/Vol] 9.1 mg/dL Normal 8.4-10.4 [facility] Comment on above: Performed By: #### F ERR3, CRP2, LDH3, LFT3, PHOS3, DDI2, BMP3M, ICA, MG3, HEMDF ####[id number] [place], [place] Anion gap [Moles/Vol] 5 mmol/L Normal 3-13 [facility] Comment on above: Performed By: #### F ERR3, CRP2, LDH3, LFT3, PHOS3, DDI2, BMP3M, ICA, MG3, HEMDF ####[id number] [place], [place] CO2 [Moles/Vol] 33 mmol/L High 22-30 [facility] Comment on above: Performed By: #### F ERR3, CRP2, LDH3, LFT3, PHOS3, DDI2, BMP3M, ICA, MG3, HEMDF ####[id number] [place], [place] Glucose [Mass/Vol] 134 mg/dL High 70-100 [facility] Comment on above: Performed By: #### F ERR3, CRP2, LDH3, LFT3, PHOS3, DDI2, BMP3M, ICA, MG3, HEMDF ####[address] Urea nitrogen [Mass/Vol] 53 mg/dL High 7-20 [facility] Comment on above: Performed By: #### F ERR3, CRP2, LDH3, LFT3, PHOS3, DDI2, BMP3M, ICA, MG3, HEMDF ####[id number] [place], [place] Creatinine [Mass/Vol] 0.73 mg/dL Normal 0.52-1.25 [facility] Comment on above: Performed By: #### F ERR3, CRP2, LDH3, LFT3, PHOS3, DDI2, BMP3M, ICA, MG3, HEMDF ####[id number] [place], [place] eGFR OTHER > 90.0 Normal >60 [facility] Comment on above: Result Comment: KDIG O guidelines provide the following GFR categories:Stage GFR(ml/min/1.73 m2) TermsG1 >=90 Normal or highG2 60-89 Mildly decreased*G3a 45-59 Mildly to moderately [id number] 30-44 Moderately to severely decreasedG4 15-29 Severely decreasedG5 <15 Kidney failure*Relative to young adult level.In the absence of evidence of kidney damage, neither GFRcategory G1 nor G2 fulfill the criteria for CKD.The CKD-EPI equation is validated in individuals 18 yearsof age and older. Currently the best equation forestimating glomerular filtration rate (GFR) from serumcreatinine in children is the Bedside Arechiga equation.It is less accurate in patients with extremes of musclemass, restriction of dietary protein, ingestion of creatine,extra-renal metabolism of creatinine, or treatment withmedications that affect renal tubular creatinine secretion. Performed By: #### F ERR3, CRP2, LDH3, LFT3, PHOS3, DDI2, BMP3M, ICA, MG3, HEMDF ####[id number] [place], [place] GFR/1.73 sq M.predicted among blacks MDRD (S/P/Bld) [Vol rate/Area] mL/min/{1.73_m2} Normal >60 [facility] Comment on above: Performed By: #### F ERR3, CRP2, LDH3, LFT3, PHOS3, DDI2, BMP3M, ICA, MG3, HEMDF ####[id number] [place], [place] Potassium [Moles/Vol] 4.6 mmol/L Normal 3.5-5.1 [facility] Comment on above: Performed By: #### F ERR3, CRP2, LDH3, LFT3, PHOS3, DDI2, BMP3M, ICA, MG3, HEMDF ####[id number] [place], [place] Sodium [Moles/Vol] 148 mmol/L High 135-145 [facility] Comment on above: Performed By: #### F ERR3, CRP2, LDH3, LFT3, PHOS3, DDI2, BMP3M, ICA, MG3, HEMDF ####[id number] [place], [place] Chloride [Moles/Vol] 110 mmol/L High 98-107 [facility] Comment on above: Performed By: #### F ERR3, CRP2, LDH3, LFT3, PHOS3, DDI2, BMP3M, ICA, MG3, HEMDF ####[id number] [place] [address] C-Reactive Proteinon 021 CRP [Mass/Vol] 6.8 mg/L High 0.0-6.0 [facility] Comment on above: Result Comment: . Performed By: #### F ERR3, CRP2, LDH3, LFT3, PHOS3, DDI2, BMP3M, ICA, MG3, HEMDF ####[id number] [place], [place] CR Chest Portableon 06-14-20 21 CR Chest Portable Normal [facility] CULT./ST. RESPIRATORYon 05-30 CULT./ST. RESPIRATORY CULT./ST. RESPIRAT ORY --> Status: F Moderate normal respiratory pretty. Normal [facility] Comment on above: Performed By: #### C S/RE, S/GRM ####[id number] [place], [place] Calcium,Ionizedon 06-14-2021 Ionized Ca,Measured 4.60 mg/dL Normal 4.30-5.20 [facility] Comment on above: Performed By: #### F ERR3, CRP2, LDH3, LFT3, PHOS3, DDI2, BMP3M, ICA, MG3, HEMDF ####[id number] [place], [place] pH, Ionized Calcium 7.48 High 7.31-7.46 [facility] Comment on above: Performed By: #### F ERR3, CRP2, LDH3, LFT3, PHOS3, DDI2, BMP3M, ICA, MG3, HEMDF ####[id number] [place], [place] D-Dimer, Innovanceon 021 D-Dimer, Innovance 17.18 mg/L High <0.19-0.50 [facility] Comment on above: Result Comment: Inno carrington D-Dimer values of <0.50 mg/L FEU can be used incombination with a pre-test probability model (e.g. Well's)to exclude pulmonary embolism (PE) disease, as well as jodi in the diagnosis of deep vein thrombosis (DVT). Performed By: #### F ERR3, CRP2, LDH3, LFT3, PHOS3, DDI2, BMP3M, ICA, MG3, HEMDF ####[facility] [address] [id number] [place] [address] Ferritinon 06-14-2021 Ferritin [Mass/Vol] 46 ng/mL Normal 8-252 [facility] Comment on above: Performed By: #### F ERR3, CRP2, LDH3, LFT3, PHOS3, DDI2, BMP3M, ICA, MG3, HEMDF ####[facility] [id number] [facility] [place] [address] Glucose,Bedsideon 06-14-2021 Glucose [Mass/Vol] 209 mg/dL High 70-100 [facility] Comment on above: Result Comment: Test performed by glucose meter. Results may be 10%-15% lowerthan serum/plasma values. (CLIA ID [id number]) Performed By: #### B GLU ####[facility] [id number] [facility] [place] [address] Glucose [Mass/Vol] 186 mg/dL High 70-100 [facility] Comment on above: Result Comment: Test performed by glucose meter. Results may be 10%-15% lowerthan serum/plasma values. (CLIA ID [id number]) Performed By: #### B GLU ####[facility] [id number] [facility] [place] [address] Glucose [Mass/Vol] 138 mg/dL High 70-100 [facility] Comment on above: Result Comment: Test performed by glucose meter. Results may be 10%-15% lowerthan serum/plasma values. (CLIA ID [id number]) Performed By: #### B GLU ####[facility] [id number] [facility] [place] [address] Glucose [Mass/Vol] 122 mg/dL High 70-100 [facility] Comment on above: Result Comment: Test performed by glucose meter. Results may be 10%-15% lowerthan serum/plasma values. (CLIA ID [id number]) Performed By: #### B GLU ####[address] Hemogram w/ Autodiffon 06-14 Abs Baso Cnt 0.0 10*3/uL Normal 0.0-0.2 [facility] Comment on above: Performed By: #### F ERR3, CRP2, LDH3, LFT3, PHOS3, DDI2, BMP3M, ICA, MG3, HEMDF ####[address] Abs Neutrophile Cnt 10.1 10*3/uL High 1.8-7.0 [facility] Comment on above: Performed By: #### F ERR3, CRP2, LDH3, LFT3, PHOS3, DDI2, BMP3M, ICA, MG3, HEMDF ####[address] Basophils/100 WBC (Bld) 0.2 % Normal 0.0-2.0 [facility] Comment on above: Performed By: #### F ERR3, CRP2, LDH3, LFT3, PHOS3, DDI2, BMP3M, ICA, MG3, HEMDF ####[address] Eosinophils (Bld) [#/Vol] 0.0 10*3/uL Normal 0.0-0.5 [facility] Comment on above: Performed By: #### F ERR3, CRP2, LDH3, LFT3, PHOS3, DDI2, BMP3M, ICA, MG3, HEMDF ####[address] Eosinophils/100 WBC (Bld) 0.1 % Low 1.0-6.0 [facility] Comment on above: Performed By: #### F ERR3, CRP2, LDH3, LFT3, PHOS3, DDI2, BMP3M, ICA, MG3, HEMDF ####[address], [place] Erythrocyte distribution width (RBC) [Ratio] 21.4 % High 11.5-14.5 [facility] Comment on above: Performed By: #### F ERR3, CRP2, LDH3, LFT3, PHOS3, DDI2, BMP3M, ICA, MG3, HEMDF ####[address] Granulocytes/100 WBC (Bld) 82.3 % High 40.0-80.0 [facility] Comment on above: Performed By: #### F ERR3, CRP2, LDH3, LFT3, PHOS3, DDI2, BMP3M, ICA, MG3, HEMDF ####[address] Hematocrit (Bld) [Volume fraction] 38.3 % Normal 35.0-47.0 [facility] Comment on above: Performed By: #### F ERR3, CRP2, LDH3, LFT3, PHOS3, DDI2, BMP3M, ICA, MG3, HEMDF ####[address] Hemoglobin (Bld) [Mass/Vol] 12.0 g/dL Normal 11.7-16.0 [facility] Comment on above: Performed By: #### F ERR3, CRP2, LDH3, LFT3, PHOS3, DDI2, BMP3M, ICA, MG3, HEMDF ####[address] Lymphocytes (Bld) [#/Vol] 1.2 10*3/uL Normal 1.0-4.3 [facility] Comment on above: Performed By: #### F ERR3, CRP2, LDH3, LFT3, PHOS3, DDI2, BMP3M, ICA, MG3, HEMDF ####[address] Lymphocytes/100 WBC (Bld) 9.5 % Low 20.0-40.0 [facility] Comment on above: Performed By: #### F ERR3, CRP2, LDH3, LFT3, PHOS3, DDI2, BMP3M, ICA, MG3, HEMDF ####[address] MCH (RBC) [Entitic mass] 22.4 pg Low 26.0-34.0 [facility] Comment on above: Performed By: #### F ERR3, CRP2, LDH3, LFT3, PHOS3, DDI2, BMP3M, ICA, MG3, HEMDF ####[id number] [place], [place] MCHC 31.3 % Low 32.0-36.0 [facility] Comment on above: Performed By: #### F ERR3, CRP2, LDH3, LFT3, PHOS3, DDI2, BMP3M, ICA, MG3, HEMDF ####[id number] [place], [place] MCV (RBC) [Entitic vol] 71.7 fL Low 79.0-98.0 [facility] Comment on above: Performed By: #### F ERR3, CRP2, LDH3, LFT3, PHOS3, DDI2, BMP3M, ICA, MG3, HEMDF ####[facility] [place], [place] Monocytes (Bld) [#/Vol] 1.0 10*3/uL High 0.0-0.8 [facility] Comment on above: Performed By: #### F ERR3, CRP2, LDH3, LFT3, PHOS3, DDI2, BMP3M, ICA, MG3, HEMDF ####[id number] [place], [place] Monocytes/100 WBC (Bld) 7.9 % Normal 2.0-10.0 [facility] Comment on above: Performed By: #### F ERR3, CRP2, LDH3, LFT3, PHOS3, DDI2, BMP3M, ICA, MG3, HEMDF ####[id number] [place], [place] Platelet mean volume (Bld) [Entitic vol] 8.4 fL Normal 7.4-10.4 [facility] Comment on above: Performed By: #### F ERR3, CRP2, LDH3, LFT3, PHOS3, DDI2, BMP3M, ICA, MG3, HEMDF ####[facility] [place], [place] Platelets (Bld) [#/Vol] 229 10*3/uL Normal 140-440 [facility] Comment on above: Performed By: #### F ERR3, CRP2, LDH3, LFT3, PHOS3, DDI2, BMP3M, ICA, MG3, HEMDF ####[id number] [place] RBC (Bld) [#/Vol] 5.33 10*6/uL High 3.80-5.20 [facility] Comment on above: Performed By: #### F ERR3, CRP2, LDH3, LFT3, PHOS3, DDI2, BMP3M, ICA, MG3, HEMDF ####[id number] [place], [place] WBC (Bld) [#/Vol] 12.3 10*3/uL High 3.6-10.7 [facility] Comment on above: Performed By: #### F ERR3, CRP2, LDH3, LFT3, PHOS3, DDI2, BMP3M, ICA, MG3, HEMDF ####[id number] [place], [place] Hepatic Functionon 1 ALT [Catalytic activity/Vol] 61 U/L High 0-34 [facility] Comment on above: Result Comment: The ALT test is performed by an updated assay method.Please note that the reference intervals have beenchanged and are now sex specific. Performed By: #### F ERR3, CRP2, LDH3, LFT3, PHOS3, DDI2, BMP3M, ICA, MG3, HEMDF ####[id number] [place], [place] ALP [Catalytic activity/Vol] 89 U/L Normal 38-126 [facility] Comment on above: Performed By: #### F ERR3, CRP2, LDH3, LFT3, PHOS3, DDI2, BMP3M, ICA, MG3, HEMDF ####[id number] [place] AST [Catalytic activity/Vol] 44 U/L Normal 15-46 [facility] Comment on above: Performed By: #### F ERR3, CRP2, LDH3, LFT3, PHOS3, DDI2, BMP3M, ICA, MG3, HEMDF ####[id number] [place], [place] Bilirubin [Mass/Vol] 0.6 mg/dL Normal 0.2-1.3 [facility] Comment on above: Performed By: #### F ERR3, CRP2, LDH3, LFT3, PHOS3, DDI2, BMP3M, ICA, MG3, HEMDF ####[id number] [place], [place] Bilirubin.indirect [Mass/Vol] 0.0 mg/dL Normal 0.0-0.3 [facility] Comment on above: Performed By: #### F ERR3, CRP2, LDH3, LFT3, PHOS3, DDI2, BMP3M, ICA, MG3, HEMDF ####[id number] [place], [place] Protein [Mass/Vol] 6.7 g/dL Normal 6.3-8.2 [facility] Comment on above: Performed By: #### F ERR3, CRP2, LDH3, LFT3, PHOS3, DDI2, BMP3M, ICA, MG3, HEMDF ####[id number] [place], [place] Albumin [Mass/Vol] 3.5 g/dL Normal 3.5-5.0 [facility] Comment on above: Performed By: #### F ERR3, CRP2, LDH3, LFT3, PHOS3, DDI2, BMP3M, ICA, MG3, HEMDF ####[id number] [place], [place] LDHon 06-14-2021 LDH 303 U/L High 120-246 [facility] Comment on above: Performed By: #### F ERR3, CRP2, LDH3, LFT3, PHOS3, DDI2, BMP3M, ICA, MG3, HEMDF ####[id number] [place] [address] Magnesiumon 06-14-2021 Magnesium [Mass/Vol] 2.4 mg/dL High 1.6-2.3 [facility] Comment on above: Performed By: #### F ERR3, CRP2, LDH3, LFT3, PHOS3, DDI2, BMP3M, ICA, MG3, HEMDF ####[id number] [place] [address] Phosphoruson 06-14-2021 Phosphate [Mass/Vol] 4.3 mg/dL Normal 2.5-4.5 [facility] Comment on above: Performed By: #### F ERR3, CRP2, LDH3, LFT3, PHOS3, DDI2, BMP3M, ICA, MG3, HEMDF ####[id number] [place] [address] Sodiumon 06-14-2021 Sodium [Moles/Vol] 148 mmol/L High 135-145 [facility] Comment on above: Performed By: #### N A3 ####[id number] [place] [address] Arterial Blood Gaseson 06-13 CO2 [Moles/Vol] 32.9 mmol/L High 23.0-27.0 [facility] Comment on above: Performed By: #### A BG ####[id number] [place] [address] HCO3 (Bld) [Moles/Vol] 31.6 mmol/L High 21.0-25.0 [facility] Comment on above: Performed By: #### A BG ####[id number] [place] [address] Hemoglobin (Bld) [Mass/Vol] 12.0 g/dL Normal ScreenOnly [facility] [facility] Comment on above: Performed By: #### A BG ####[id number] [place], [place] Oxygen (Bld) [Partial pressure] 63.5 mm[Hg] Low 80.0-100.0 [facility] Comment on above: Performed By: #### A BG ####[id number] [place], [place] Oxygen saturation in Blood 92.1 % Low 95.0-100.0 [facility] Comment on above: Performed By: #### A BG ####[id number] [place], [place] pCO2 43.4 mm[Hg] Normal 35.0-45.0 [facility] Comment on above: Performed By: #### A BG ####[address] pH 7.480 High 7.350-7.450 [facility] Comment on above: Performed By: #### A BG ####[address] [place], [place] Std Base Excess 7.3 mmol/L High -3.0-3.0 [facility] Comment on above: Performed By: #### A BG ####[address] FIO2 No data Normal [facility] Comment on above: Performed By: #### A BG ####[address] [place] CO2 [Moles/Vol] 36.5 mmol/L High 23.0-27.0 [facility] Comment on above: Performed By: #### A BG ####[id number] [place], [place] HCO3 (Bld) [Moles/Vol] 35.1 mmol/L High 21.0-25.0 [facility] Comment on above: Performed By: #### A BG ####[address] Hemoglobin (Bld) [Mass/Vol] 12.5 g/dL Normal ScreenOnly [facility] Comment on above: Performed By: #### A BG ####[id number] [place], [place] Oxygen (Bld) [Partial pressure] 73.9 mm[Hg] Low 80.0-100.0 [facility] Comment on above: Performed By: #### A BG ####[id number] [place], [place] Oxygen saturation in Blood 93.9 % Low 95.0-100.0 [facility] Comment on above: Performed By: #### A BG ####[id number] [place], [place] pCO2 46.9 mm[Hg] High 35.0-45.0 [facility] Comment on above: Performed By: #### A BG ####[id number] [place], [place] pH 7.492 High 7.350-7.450 [facility] Comment on above: Performed By: #### A BG ####[address] Std Base Excess 10.4 mmol/L High -3.0-3.0 [facility] Comment on above: Performed By: #### A BG ####[address] FIO2 No data Normal [facility] Comment on above: Performed By: #### A BG ####[address] Basic Metabolic Panelon 07- Anion gap [Moles/Vol] 6 mmol/L Normal 3-13 [facility] Comment on above: Performed By: #### L FT3, MG3, FERR3, LDH3, PHOS3, HEMDF, BMP3M, ICA, CRP2, DDI2 ####[id number] [place], [place] Calcium [Mass/Vol] 8.9 mg/dL Normal 8.4-10.4 [facility] Comment on above: Performed By: #### L FT3, MG3, FERR3, LDH3, PHOS3, HEMDF, BMP3M, ICA, CRP2, DDI2 ####[id number] [place] CO2 [Moles/Vol] 32 mmol/L High 22-30 [facility] Comment on above: Performed By: #### L FT3, MG3, FERR3, LDH3, PHOS3, HEMDF, BMP3M, ICA, CRP2, DDI2 ####[id number] [place], [place] Glucose [Mass/Vol] 131 mg/dL High 70-100 [facility] Comment on above: Performed By: #### L FT3, MG3, FERR3, LDH3, PHOS3, HEMDF, BMP3M, ICA, CRP2, DDI2 ####[id number] [place] Urea nitrogen [Mass/Vol] 56 mg/dL High 7-20 [facility] Comment on above: Performed By: #### L FT3, MG3, FERR3, LDH3, PHOS3, HEMDF, BMP3M, ICA, CRP2, DDI2 ####[id number] [place], [place] Creatinine [Mass/Vol] 0.72 mg/dL Normal 0.52-1.25 [facility] Comment on above: Performed By: #### L FT3, MG3, FERR3, LDH3, PHOS3, HEMDF, BMP3M, ICA, CRP2, DDI2 ####[id number] [place], [place] eGFR OTHER > 90.0 Normal >60 [facility] Comment on above: Result Comment: KDIG O guidelines provide the following GFR categories:Stage GFR(ml/min/1.73 m2) TermsG1 >=90 Normal or highG2 60-89 Mildly decreased*G3a 45-59 Mildly to moderately logttqoseO2e 30-44 Moderately to severely decreasedG4 15-29 Severely decreasedG5 <15 Kidney failure*Relative to young adult level.In the absence of evidence of kidney damage, neither GFRcategory G1 nor G2 fulfill the criteria for CKD.The CKD-EPI equation is validated in individuals 18 yearsof age and older. Currently the best equation forestimating glomerular filtration rate (GFR) from serumcreatinine in children is the Bedside Arechiga equation.It is less accurate in patients with extremes of musclemass, restriction of dietary protein, ingestion of creatine,extra-renal metabolism of creatinine, or treatment withmedications that affect renal tubular creatinine secretion. Performed By: #### L FT3, MG3, FERR3, LDH3, PHOS3, HEMDF, BMP3M, ICA, CRP2, DDI2 ####[address] GFR/1.73 sq M.predicted among blacks MDRD (S/P/Bld) [Vol rate/Area] mL/min/{1.73_m2} Normal >60 [facility] Comment on above: Performed By: #### L FT3, MG3, FERR3, LDH3, PHOS3, HEMDF, BMP3M, ICA, CRP2, DDI2 ####[id number] [place], [place] Potassium [Moles/Vol] 4.5 mmol/L Normal 3.5-5.1 [facility] Comment on above: Performed By: #### L FT3, MG3, FERR3, LDH3, PHOS3, HEMDF, BMP3M, ICA, CRP2, DDI2 ####[address] Sodium [Moles/Vol] 149 mmol/L High 135-145 [facility] Comment on above: Performed By: #### L FT3, MG3, FERR3, LDH3, PHOS3, HEMDF, BMP3M, ICA, CRP2, DDI2 ####[address] Chloride [Moles/Vol] 111 mmol/L High 98-107 [facility] Comment on above: Performed By: #### L FT3, MG3, FERR3, LDH3, PHOS3, HEMDF, BMP3M, ICA, CRP2, DDI2 ####[id number] [place] [address] C-Reactive Proteinon 021 CRP [Mass/Vol] 5.9 mg/L Normal 0.0-6.0 [facility] Comment on above: Result Comment: . Performed By: #### L FT3, MG3, FERR3, LDH3, PHOS3, HEMDF, BMP3M, ICA, CRP2, DDI2 ####[id number] [place] [address] CR Chest Portableon 06-13-20 CR Chest Portable Normal [facility] Calcium,Ionizedon 06-13-2021 Ionized Ca,Measured 4.10 mg/dL Low 4.30-5.20 [facility] Comment on above: Performed By: #### L FT3, MG3, FERR3, LDH3, PHOS3, HEMDF, BMP3M, ICA, CRP2, DDI2 ####[address] [address] pH, Ionized Calcium 7.52 High 7.31-7.46 [facility] Comment on above: Performed By: #### L FT3, MG3, FERR3, LDH3, PHOS3, HEMDF, BMP3M, ICA, CRP2, DDI2 ####[address] [address] D-Dimer, Innovanceon 021 D-Dimer, Innovance 18.71 mg/L High <0.19-0.50 [facility] Comment on above: Result Comment: Inno carrington D-Dimer values of <0.50 mg/L FEU can be used incombination with a pre-test probability model (e.g. Well's)to exclude pulmonary embolism (PE) disease, as well as jodi in the diagnosis of deep vein thrombosis (DVT). Performed By: #### L FT3, MG3, FERR3, LDH3, PHOS3, HEMDF, BMP3M, ICA, CRP2, DDI2 ####[address] [place] Ferritinon 06-13-2021 Ferritin [Mass/Vol] 42 ng/mL Normal 8-252 [facility] Comment on above: Performed By: #### L FT3, MG3, FERR3, LDH3, PHOS3, HEMDF, BMP3M, ICA, CRP2, DDI2 ####[id number] [place], [place] Glucose,Bedsideon 06-13-2021 Glucose [Mass/Vol] 174 mg/dL High 70-100 [facility] Comment on above: Result Comment: Test performed by glucose meter. Results may be 10%-15% lowerthan serum/plasma values. (CLIA ID [id number]) Performed By: #### B GLU ####[address] Glucose [Mass/Vol] 159 mg/dL High 70-100 [facility] Comment on above: Result Comment: Test performed by glucose meter. Results may be 10%-15% lowerthan serum/plasma values. (CLIA ID [id number]) Performed By: #### B GLU ####[address] [place] Glucose [Mass/Vol] 129 mg/dL High 70-100 [facility] Comment on above: Result Comment: Test performed by glucose meter. Results may be 10%-15% lowerthan serum/plasma values. (CLIA ID [id number]) Performed By: #### B GLU ####[address] [place] Hemogram w/ Autodiffon 06-13 Abs Baso Cnt 0.1 10*3/uL Normal 0.0-0.2 [facility] Comment on above: Performed By: #### L FT3, MG3, FERR3, LDH3, PHOS3, HEMDF, BMP3M, ICA, CRP2, DDI2 ####[id number] [place], [place] Abs Neutrophile Cnt 9.9 10*3/uL High 1.8-7.0 [facility] Comment on above: Performed By: #### L FT3, MG3, FERR3, LDH3, PHOS3, HEMDF, BMP3M, ICA, CRP2, DDI2 ####[address] [address] Basophils/100 WBC (Bld) 1.2 % Normal 0.0-2.0 [facility] Comment on above: Performed By: #### L FT3, MG3, FERR3, LDH3, PHOS3, HEMDF, BMP3M, ICA, CRP2, DDI2 ####[address] [address] Eosinophils (Bld) [#/Vol] 0.0 10*3/uL Normal 0.0-0.5 [facility] Comment on above: Performed By: #### L FT3, MG3, FERR3, LDH3, PHOS3, HEMDF, BMP3M, ICA, CRP2, DDI2 ####[address] Eosinophils/100 WBC (Bld) 0.1 % Low 1.0-6.0 [facility] Comment on above: Performed By: #### L FT3, MG3, FERR3, LDH3, PHOS3, HEMDF, BMP3M, ICA, CRP2, DDI2 ####[address] Erythrocyte distribution width (RBC) [Ratio] 21.1 % High 11.5-14.5 [facility] Comment on above: Performed By: #### L FT3, MG3, FERR3, LDH3, PHOS3, HEMDF, BMP3M, ICA, CRP2, DDI2 ####[address] [address] Granulocytes/100 WBC (Bld) 80.6 % High 40.0-80.0 [facility] Comment on above: Performed By: #### L FT3, MG3, FERR3, LDH3, PHOS3, HEMDF, BMP3M, ICA, CRP2, DDI2 ####[address] Hematocrit (Bld) [Volume fraction] 36.4 % Normal 35.0-47.0 [facility] Comment on above: Performed By: #### L FT3, MG3, FERR3, LDH3, PHOS3, HEMDF, BMP3M, ICA, CRP2, DDI2 ####[address] Hemoglobin (Bld) [Mass/Vol] 11.4 g/dL Low 11.7-16.0 [facility] Comment on above: Performed By: #### L FT3, MG3, FERR3, LDH3, PHOS3, HEMDF, BMP3M, ICA, CRP2, DDI2 ####[address] Lymphocytes (Bld) [#/Vol] 1.0 10*3/uL Normal 1.0-4.3 [facility] Comment on above: Performed By: #### L FT3, MG3, FERR3, LDH3, PHOS3, HEMDF, BMP3M, ICA, CRP2, DDI2 ####[address] Lymphocytes/100 WBC (Bld) 8.4 % Low 20.0-40.0 [facility] Comment on above: Performed By: #### L FT3, MG3, FERR3, LDH3, PHOS3, HEMDF, BMP3M, ICA, CRP2, DDI2 ####[address] MCH (RBC) [Entitic mass] 22.4 pg Low 26.0-34.0 [facility] Comment on above: Performed By: #### L FT3, MG3, FERR3, LDH3, PHOS3, HEMDF, BMP3M, ICA, CRP2, DDI2 ####[address] MCHC 31.4 % Low 32.0-36.0 [facility] Comment on above: Performed By: #### L FT3, MG3, FERR3, LDH3, PHOS3, HEMDF, BMP3M, ICA, CRP2, DDI2 ####[id number] [place], [place] MCV (RBC) [Entitic vol] 71.4 fL Low 79.0-98.0 [facility] Comment on above: Performed By: #### L FT3, MG3, FERR3, LDH3, PHOS3, HEMDF, BMP3M, ICA, CRP2, DDI2 ####[address] Monocytes (Bld) [#/Vol] 1.2 10*3/uL High 0.0-0.8 [facility] Comment on above: Performed By: #### L FT3, MG3, FERR3, LDH3, PHOS3, HEMDF, BMP3M, ICA, CRP2, DDI2 ####[address] Monocytes/100 WBC (Bld) 9.7 % Normal 2.0-10.0 [facility] Comment on above: Performed By: #### L FT3, MG3, FERR3, LDH3, PHOS3, HEMDF, BMP3M, ICA, CRP2, DDI2 ####[address] Platelet mean volume (Bld) [Entitic vol] 8.3 fL Normal 7.4-10.4 [facility] Comment on above: Performed By: #### L FT3, MG3, FERR3, LDH3, PHOS3, HEMDF, BMP3M, ICA, CRP2, DDI2 ####[address] Platelets (Bld) [#/Vol] 243 10*3/uL Normal 140-440 [facility] Comment on above: Performed By: #### L FT3, MG3, FERR3, LDH3, PHOS3, HEMDF, BMP3M, ICA, CRP2, DDI2 ####[address] RBC (Bld) [#/Vol] 5.10 10*6/uL Normal 3.80-5.20 [facility] Comment on above: Performed By: #### L FT3, MG3, FERR3, LDH3, PHOS3, HEMDF, BMP3M, ICA, CRP2, DDI2 ####[id number] [place], [place] WBC (Bld) [#/Vol] 12.2 10*3/uL High 3.6-10.7 [facility] Comment on above: Performed By: #### L FT3, MG3, FERR3, LDH3, PHOS3, HEMDF, BMP3M, ICA, CRP2, DDI2 ####[id number] [place], [place] Hepatic Functionon 1 ALP [Catalytic activity/Vol] 82 U/L Normal 38-126 [facility] Comment on above: Performed By: #### L FT3, MG3, FERR3, LDH3, PHOS3, HEMDF, BMP3M, ICA, CRP2, DDI2 ####[id number] [place], [place] ALT [Catalytic activity/Vol] 62 U/L High 0-34 [facility] Comment on above: Result Comment: The ALT test is performed by an updated assay method.Please note that the reference intervals have beenchanged and are now sex specific. Performed By: #### L FT3, MG3, FERR3, LDH3, PHOS3, HEMDF, BMP3M, ICA, CRP2, DDI2 ####[id number] [place], [place] AST [Catalytic activity/Vol] 36 U/L Normal 15-46 [facility] Comment on above: Performed By: #### L FT3, MG3, FERR3, LDH3, PHOS3, HEMDF, BMP3M, ICA, CRP2, DDI2 ####[id number] [place], [place] Bilirubin [Mass/Vol] 0.5 mg/dL Normal 0.2-1.3 [facility] Comment on above: Performed By: #### L FT3, MG3, FERR3, LDH3, PHOS3, HEMDF, BMP3M, ICA, CRP2, DDI2 ####[address] Protein [Mass/Vol] 6.5 g/dL Normal 6.3-8.2 [facility] Comment on above: Performed By: #### L FT3, MG3, FERR3, LDH3, PHOS3, HEMDF, BMP3M, ICA, CRP2, DDI2 ####[address] Bilirubin.indirect [Mass/Vol] 0.0 mg/dL Normal 0.0-0.3 [facility] Comment on above: Performed By: #### L FT3, MG3, FERR3, LDH3, PHOS3, HEMDF, BMP3M, ICA, CRP2, DDI2 ####[address] Albumin [Mass/Vol] 3.3 g/dL Low 3.5-5.0 [facility] Comment on above: Performed By: #### L FT3, MG3, FERR3, LDH3, PHOS3, HEMDF, BMP3M, ICA, CRP2, DDI2 ####[address] LDHon 06-13-2021 LDH 272 U/L High 120-246 [facility] Comment on above: Performed By: #### L FT3, MG3, FERR3, LDH3, PHOS3, HEMDF, BMP3M, ICA, CRP2, DDI2 ####[address] Magnesiumon 06-13-2021 Magnesium [Mass/Vol] 2.5 mg/dL High 1.6-2.3 [facility] Comment on above: Performed By: #### L FT3, MG3, FERR3, LDH3, PHOS3, HEMDF, BMP3M, ICA, CRP2, DDI2 ####[id number] [place] [address] PNEUMONIA PCR PANELon 2020 PNEUMONIA PCR PANEL Normal [facility] Comment on above: Performed By: #### B FPNE ####[id number] [place] [address] Phosphoruson 06-13-2021 Phosphate [Mass/Vol] 4.4 mg/dL Normal 2.5-4.5 [facility] Comment on above: Performed By: #### L FT3, MG3, FERR3, LDH3, PHOS3, HEMDF, BMP3M, ICA, CRP2, DDI2 ####[id number] [place], [place] Sodiumon 06-13-2021 Sodium [Moles/Vol] 148 mmol/L High 135-145 [facility] Comment on above: Performed By: #### N A3 ####[id number] [place] Sodium [Moles/Vol] 148 mmol/L High 135-145 [facility] Comment on above: Performed By: #### N A3 ####[id number] [place] Sodium [Moles/Vol] 150 mmol/L High 135-145 [facility] Comment on above: Performed By: #### N A3 ####[id number] [place] [address] Arterial Blood Gaseson 06-12 CO2 [Moles/Vol] 34.1 mmol/L High 23.0-27.0 [facility] Comment on above: Performed By: #### A BG ####[id number] [place] HCO3 (Bld) [Moles/Vol] 32.6 mmol/L High 21.0-25.0 [facility] Comment on above: Performed By: #### A BG ####[address] Hemoglobin (Bld) [Mass/Vol] 12.3 g/dL Normal ScreenOnly [facility] Comment on above: Performed By: #### A BG ####[id number] [place] Oxygen (Bld) [Partial pressure] 60.5 mm[Hg] Low 80.0-100.0 [facility] Comment on above: Performed By: #### A BG ####[id number] [place] Oxygen saturation in Blood 90.5 % Low 95.0-100.0 [facility] Comment on above: Performed By: #### A BG ####[address] [place] pCO2 46.2 mm[Hg] High 35.0-45.0 [facility] Comment on above: Performed By: #### A BG ####[address] pH 7.467 High 7.350-7.450 [facility] Comment on above: Performed By: #### A BG ####[address] Std Base Excess 7.9 mmol/L High -3.0-3.0 [facility] Comment on above: Performed By: #### A BG ####[address] FIO2 No data Normal [facility] Comment on above: Performed By: #### A BG ####[address] [place] CO2 [Moles/Vol] 36.1 mmol/L High 23.0-27.0 [facility] Comment on above: Performed By: #### A BG ####[address] HCO3 (Bld) [Moles/Vol] 34.6 mmol/L High 21.0-25.0 [facility] Comment on above: Performed By: #### A BG ####[address] Hemoglobin (Bld) [Mass/Vol] 12.2 g/dL Normal ScreenOnly [facility] Comment on above: Performed By: #### A BG ####[id number] [place], [place] Oxygen (Bld) [Partial pressure] 82.8 mm[Hg] Normal 80.0-100.0 [facility] Comment on above: Performed By: #### A BG ####[address] Oxygen saturation in Blood 95.3 % Normal 95.0-100.0 [facility] Comment on above: Performed By: #### A BG ####[id number] [place], [place] pCO2 48.7 mm[Hg] High 35.0-45.0 [facility] Comment on above: Performed By: #### A BG ####[id number] [place], [place] pH 7.469 High 7.350-7.450 [facility] Comment on above: Performed By: #### A BG ####[address] Std Base Excess 9.5 mmol/L High -3.0-3.0 [facility] Comment on above: Performed By: #### A BG ####[id number] [place], [place] FIO2 40% Normal [facility] Comment on above: Performed By: #### A BG ####[address] Basic Metabolic Panelon 05-30 Calcium [Mass/Vol] 9.0 mg/dL Normal 8.4-10.4 [facility] Comment on above: Performed By: #### B MP3M, MG3, LFT3, HEMDF, PHOS3, DDI2, ICA, MDIFF, CRP2, FERR3, LDH3 ####[id number] [place], [place] Glucose [Mass/Vol] 139 mg/dL High 70-100 [facility] Comment on above: Performed By: #### B MP3M, MG3, LFT3, HEMDF, PHOS3, DDI2, ICA, MDIFF, CRP2, FERR3, LDH3 ####[id number] [place] Urea nitrogen [Mass/Vol] 59 mg/dL High 7-20 [facility] Comment on above: Performed By: #### B MP3M, MG3, LFT3, HEMDF, PHOS3, DDI2, ICA, MDIFF, CRP2, FERR3, LDH3 ####[id number] [place], [place] Anion gap [Moles/Vol] 4 mmol/L Normal 3-13 [facility] Comment on above: Performed By: #### B MP3M, MG3, LFT3, HEMDF, PHOS3, DDI2, ICA, MDIFF, CRP2, FERR3, LDH3 ####[address] CO2 [Moles/Vol] 34 mmol/L High 22-30 [facility] Comment on above: Performed By: #### B MP3M, MG3, LFT3, HEMDF, PHOS3, DDI2, ICA, MDIFF, CRP2, FERR3, LDH3 ####[address] Creatinine [Mass/Vol] 0.82 mg/dL Normal 0.52-1.25 [facility] Comment on above: Performed By: #### B MP3M, MG3, LFT3, HEMDF, PHOS3, DDI2, ICA, MDIFF, CRP2, FERR3, LDH3 ####[address] GFR/1.73 sq M.predicted among blacks MDRD (S/P/Bld) [Vol rate/Area] mL/min/{1.73_m2} Normal >60 [facility] Comment on above: Performed By: #### B MP3M, MG3, LFT3, HEMDF, PHOS3, DDI2, ICA, MDIFF, CRP2, FERR3, LDH3 ####[id number] [place], [place] GFR/1.73 sq M.predicted among non-blacks MDRD (S/P/Bld) [Vol rate/Area] 81.5 mL/min/{1.73_m2} Normal >60 [facility] Comment on above: Result Comment: KDIG O guidelines provide the following GFR categories:Stage GFR(ml/min/1.73 m2) TermsG1 >=90 Normal or highG2 60-89 Mildly decreased*G3a 45-59 Mildly to moderately [id number] 30-44 Moderately to severely decreasedG4 15-29 Severely decreasedG5 <15 Kidney failure*Relative to young adult level.In the absence of evidence of kidney damage, neither GFRcategory G1 nor G2 fulfill the criteria for CKD.The CKD-EPI equation is validated in individuals 18 yearsof age and older. Currently the best equation forestimating glomerular filtration rate (GFR) from serumcreatinine in children is the Bedside Arechiga equation.It is less accurate in patients with extremes of musclemass, restriction of dietary protein, ingestion of creatine,extra-renal metabolism of creatinine, or treatment withmedications that affect renal tubular creatinine secretion. Performed By: #### B MP3M, MG3, LFT3, HEMDF, PHOS3, DDI2, ICA, MDIFF, CRP2, FERR3, LDH3 ####[id number] [place], [place] Potassium [Moles/Vol] 4.4 mmol/L Normal 3.5-5.1 [facility] Comment on above: Performed By: #### B MP3M, MG3, LFT3, HEMDF, PHOS3, DDI2, ICA, MDIFF, CRP2, FERR3, LDH3 ####[id number] [place], [place] Chloride [Moles/Vol] 111 mmol/L High 98-107 [facility] Comment on above: Performed By: #### B MP3M, MG3, LFT3, HEMDF, PHOS3, DDI2, ICA, MDIFF, CRP2, FERR3, LDH3 ####[id number] [place], [place] Sodium [Moles/Vol] 149 mmol/L High 135-145 [facility] Comment on above: Performed By: #### B MP3M, MG3, LFT3, HEMDF, PHOS3, DDI2, ICA, MDIFF, CRP2, FERR3, LDH3 ####[id number] [place], [place] C-Reactive Proteinon 021 CRP [Mass/Vol] 6.1 mg/L High 0.0-6.0 [facility] Comment on above: Result Comment: . Performed By: #### B MP3M, MG3, LFT3, HEMDF, PHOS3, DDI2, ICA, MDIFF, CRP2, FERR3, LDH3 ####[address] CR Chest Portableon 06-12-20 21 CR Chest Portable Normal [facility] Calcium,Ionizedon 06-12-2021 Ionized Ca,Measured 4.70 mg/dL Normal 4.30-5.20 [facility] Comment on above: Performed By: #### B MP3M, MG3, LFT3, HEMDF, PHOS3, DDI2, ICA, MDIFF, CRP2, FERR3, LDH3 ####[address] pH, Ionized Calcium 7.46 Normal 7.31-7.46 [facility] Comment on above: Performed By: #### B MP3M, MG3, LFT3, HEMDF, PHOS3, DDI2, ICA, MDIFF, CRP2, FERR3, LDH3 ####[address] D-Dimer, Innovanceon 021 D-Dimer, Innovance 23.25 mg/L High <0.19-0.50 [facility] Comment on above: Result Comment: Inno carrington D-Dimer values of <0.50 mg/L FEU can be used incombination with a pre-test probability model (e.g. Well's)to exclude pulmonary embolism (PE) disease, as well as jodi in the diagnosis of deep vein thrombosis (DVT). Performed By: #### B MP3M, MG3, LFT3, HEMDF, PHOS3, DDI2, ICA, MDIFF, CRP2, FERR3, LDH3 ####[facility] [employer] [id number] [place] [address] Ferritinon 06-12-2021 Ferritin [Mass/Vol] 42 ng/mL Normal 8-252 [facility] Comment on above: Performed By: #### B MP3M, MG3, LFT3, HEMDF, PHOS3, DDI2, ICA, MDIFF, CRP2, FERR3, LDH3 ####[facility] [employer] [id number] [place] [address] Glucose,Bedsideon 06-12-2021 Glucose [Mass/Vol] 172 mg/dL High 70-100 [facility] Comment on above: Result Comment: Test performed by glucose meter. Results may be 10%-15% lowerthan serum/plasma values. (CLIA ID [id number]) Performed By: #### B GLU ####[facility] [employer] [id number] [place] [address] Glucose [Mass/Vol] 169 mg/dL High 70-100 [facility] Comment on above: Result Comment: Test performed by glucose meter. Results may be 10%-15% lowerthan serum/plasma values. (CLIA ID [id number]) Performed By: #### B GLU ####[facility] [employer] [id number] [place] [address] Glucose [Mass/Vol] 178 mg/dL High 70-100 [facility] Comment on above: Result Comment: Test performed by glucose meter. Results may be 10%-15% lowerthan serum/plasma values. (CLIA ID [id number]) Performed By: #### B GLU ####[facility] [employer] [id number] [place] [address] Glucose [Mass/Vol] 121 mg/dL High 70-100 [facility] Comment on above: Result Comment: Test performed by glucose meter. Results may be 10%-15% lowerthan serum/plasma values. (CLIA ID [id number]) Performed By: #### B GLU ####[address] Glucose [Mass/Vol] 135 mg/dL High 70-100 [facility] Comment on above: Result Comment: Test performed by glucose meter. Results may be 10%-15% lowerthan serum/plasma values. (CLIA ID [id number]) Performed By: #### B GLU ####[address] Hemogram w/ Autodiffon 06-12 Erythrocyte distribution width (RBC) [Ratio] 20.8 % High 11.5-14.5 [facility] Comment on above: Performed By: #### B MP3M, MG3, LFT3, HEMDF, PHOS3, DDI2, ICA, MDIFF, CRP2, FERR3, LDH3 ####[address] Hematocrit (Bld) [Volume fraction] 35.9 % Normal 35.0-47.0 [facility] Comment on above: Performed By: #### B MP3M, MG3, LFT3, HEMDF, PHOS3, DDI2, ICA, MDIFF, CRP2, FERR3, LDH3 ####[id number] [place], [place] Hemoglobin (Bld) [Mass/Vol] 11.3 g/dL Low 11.7-16.0 [facility] Comment on above: Performed By: #### B MP3M, MG3, LFT3, HEMDF, PHOS3, DDI2, ICA, MDIFF, CRP2, FERR3, LDH3 ####[id number] [place], [place] MCH (RBC) [Entitic mass] 22.4 pg Low 26.0-34.0 [facility] Comment on above: Performed By: #### B MP3M, MG3, LFT3, HEMDF, PHOS3, DDI2, ICA, MDIFF, CRP2, FERR3, LDH3 ####[address] MCHC 31.3 % Low 32.0-36.0 [facility] Comment on above: Performed By: #### B MP3M, MG3, LFT3, HEMDF, PHOS3, DDI2, ICA, MDIFF, CRP2, FERR3, LDH3 ####[address] MCV (RBC) [Entitic vol] 71.5 fL Low 79.0-98.0 [facility] Comment on above: Performed By: #### B MP3M, MG3, LFT3, HEMDF, PHOS3, DDI2, ICA, MDIFF, CRP2, FERR3, LDH3 ####[address] Platelet mean volume (Bld) [Entitic vol] 8.6 fL Normal 7.4-10.4 [facility] Comment on above: Performed By: #### B MP3M, MG3, LFT3, HEMDF, PHOS3, DDI2, ICA, MDIFF, CRP2, FERR3, LDH3 ####[id number] [place], [place] Platelets (Bld) [#/Vol] 266 10*3/uL Normal 140-440 [facility] Comment on above: Performed By: #### B MP3M, MG3, LFT3, HEMDF, PHOS3, DDI2, ICA, MDIFF, CRP2, FERR3, LDH3 ####[address] RBC (Bld) [#/Vol] 5.03 10*6/uL Normal 3.80-5.20 [facility] Comment on above: Performed By: #### B MP3M, MG3, LFT3, HEMDF, PHOS3, DDI2, ICA, MDIFF, CRP2, FERR3, LDH3 ####[address] WBC (Bld) [#/Vol] 11.1 10*3/uL High 3.6-10.7 [facility] Comment on above: Performed By: #### B MP3M, MG3, LFT3, HEMDF, PHOS3, DDI2, ICA, MDIFF, CRP2, FERR3, LDH3 ####[id number] [place], [place] Hepatic Functionon 1 ALP [Catalytic activity/Vol] 82 U/L Normal 38-126 [facility] Comment on above: Performed By: #### B MP3M, MG3, LFT3, HEMDF, PHOS3, DDI2, ICA, MDIFF, CRP2, FERR3, LDH3 ####[id number] [place], [place] ALT [Catalytic activity/Vol] 61 U/L High 0-34 [facility] Comment on above: Result Comment: The ALT test is performed by an updated assay method.Please note that the reference intervals have beenchanged and are now sex specific. Performed By: #### B MP3M, MG3, LFT3, HEMDF, PHOS3, DDI2, ICA, MDIFF, CRP2, FERR3, LDH3 ####[id number] [place], [place] AST [Catalytic activity/Vol] 42 U/L Normal 15-46 [facility] Comment on above: Performed By: #### B MP3M, MG3, LFT3, HEMDF, PHOS3, DDI2, ICA, MDIFF, CRP2, FERR3, LDH3 ####[address] Protein [Mass/Vol] 6.6 g/dL Normal 6.3-8.2 [facility] Comment on above: Performed By: #### B MP3M, MG3, LFT3, HEMDF, PHOS3, DDI2, ICA, MDIFF, CRP2, FERR3, LDH3 ####[id number] [place], [place] Bilirubin [Mass/Vol] 0.5 mg/dL Normal 0.2-1.3 [facility] Comment on above: Performed By: #### B MP3M, MG3, LFT3, HEMDF, PHOS3, DDI2, ICA, MDIFF, CRP2, FERR3, LDH3 ####[address] Bilirubin.indirect [Mass/Vol] 0.0 mg/dL Normal 0.0-0.3 [facility] Comment on above: Performed By: #### B MP3M, MG3, LFT3, HEMDF, PHOS3, DDI2, ICA, MDIFF, CRP2, FERR3, LDH3 ####[address] Albumin [Mass/Vol] 3.4 g/dL Low 3.5-5.0 [facility] Comment on above: Performed By: #### B MP3M, MG3, LFT3, HEMDF, PHOS3, DDI2, ICA, MDIFF, CRP2, FERR3, LDH3 ####[address] [address] LDHon 06-12-2021 LDH 269 U/L High 120-246 [facility] Comment on above: Performed By: #### B MP3M, MG3, LFT3, HEMDF, PHOS3, DDI2, ICA, MDIFF, CRP2, FERR3, LDH3 ####[address] Magnesiumon 06-12-2021 Magnesium [Mass/Vol] 2.4 mg/dL High 1.6-2.3 [facility] Comment on above: Performed By: #### B MP3M, MG3, LFT3, HEMDF, PHOS3, DDI2, ICA, MDIFF, CRP2, FERR3, LDH3 ####[address] Manual Diffon 06-12-2021 Abs Eosin Cnt 0.1 10*3/uL Normal 0.0-0.5 [facility] Comment on above: Performed By: #### B MP3M, MG3, LFT3, HEMDF, PHOS3, DDI2, ICA, MDIFF, CRP2, FERR3, LDH3 ####[address] Abs Lymph Cnt 0.8 10*3/uL Low 1.1-4.5 [facility] Comment on above: Performed By: #### B MP3M, MG3, LFT3, HEMDF, PHOS3, DDI2, ICA, MDIFF, CRP2, FERR3, LDH3 ####[address] Abs Monocyte Cnt 0.8 10*3/uL Normal 0.2-1.1 [facility] Comment on above: Performed By: #### B MP3M, MG3, LFT3, HEMDF, PHOS3, DDI2, ICA, MDIFF, CRP2, FERR3, LDH3 ####[address] Abs Neutrophile Cnt 9.4 10*3/uL High 2.2-8.2 [facility] Comment on above: Performed By: #### B MP3M, MG3, LFT3, HEMDF, PHOS3, DDI2, ICA, MDIFF, CRP2, FERR3, LDH3 ####[address] Anisocytosis Slight Normal [facility] Comment on above: Performed By: #### B MP3M, MG3, LFT3, HEMDF, PHOS3, DDI2, ICA, MDIFF, CRP2, FERR3, LDH3 ####[address] Elliptocytes Few Normal [facility] Comment on above: Performed By: #### B MP3M, MG3, LFT3, HEMDF, PHOS3, DDI2, ICA, MDIFF, CRP2, FERR3, LDH3 ####[address] Eosinophils 1 % Normal 1-6 [facility] Comment on above: Performed By: #### B MP3M, MG3, LFT3, HEMDF, PHOS3, DDI2, ICA, MDIFF, CRP2, FERR3, LDH3 ####[address] Lymphocytes 7 % Low 20-40 [facility] Comment on above: Performed By: #### B MP3M, MG3, LFT3, HEMDF, PHOS3, DDI2, ICA, MDIFF, CRP2, FERR3, LDH3 ####[address] Microcytosis Slight Normal [facility] Comment on above: Performed By: #### B MP3M, MG3, LFT3, HEMDF, PHOS3, DDI2, ICA, MDIFF, CRP2, FERR3, LDH3 ####[address] Monocytes 7 % Normal 2-10 [facility] Comment on above: Performed By: #### B MP3M, MG3, LFT3, HEMDF, PHOS3, DDI2, ICA, MDIFF, CRP2, FERR3, LDH3 ####[address] Ovalocytes Slight Normal [facility] Comment on above: Performed By: #### B MP3M, MG3, LFT3, HEMDF, PHOS3, DDI2, ICA, MDIFF, CRP2, FERR3, LDH3 ####[address] Poikilocytosis Slight Normal [facility] Comment on above: Performed By: #### B MP3M, MG3, LFT3, HEMDF, PHOS3, DDI2, ICA, MDIFF, CRP2, FERR3, LDH3 ####[address] RBC Morphology ABNORMAL Normal [facility] Comment on above: Performed By: #### B MP3M, MG3, LFT3, HEMDF, PHOS3, DDI2, ICA, MDIFF, CRP2, FERR3, LDH3 ####[address] Seg Neutrophils 85 % High 40-80 [facility] Comment on above: Performed By: #### B MP3M, MG3, LFT3, HEMDF, PHOS3, DDI2, ICA, MDIFF, CRP2, FERR3, LDH3 ####[address] Abs Baso Cnt 0.0 10*3/uL Normal 0.0-0.2 [facility] Comment on above: Performed By: #### B MP3M, MG3, LFT3, HEMDF, PHOS3, DDI2, ICA, MDIFF, CRP2, FERR3, LDH3 ####[address] Bands 0 % Normal 0-3 [facility] Comment on above: Performed By: #### B MP3M, MG3, LFT3, HEMDF, PHOS3, DDI2, ICA, MDIFF, CRP2, FERR3, LDH3 ####[address] Basophils 0 % Normal 0-2 [facility] Comment on above: Performed By: #### B MP3M, MG3, LFT3, HEMDF, PHOS3, DDI2, ICA, MDIFF, CRP2, FERR3, LDH3 ####[address] Cells counted 100 Normal [facility] Comment on above: Performed By: #### B MP3M, MG3, LFT3, HEMDF, PHOS3, DDI2, ICA, MDIFF, CRP2, FERR3, LDH3 ####[address] Phosphoruson 06-12-2021 Phosphate [Mass/Vol] 4.3 mg/dL Normal 2.5-4.5 [facility] Comment on above: Performed By: #### B MP3M, MG3, LFT3, HEMDF, PHOS3, DDI2, ICA, MDIFF, CRP2, FERR3, LDH3 ####[id number] [place] [address] STAIN GRAMon 06-12-2021 STAIN GRAM STAIN GRAM --> Statu s: F Many polymorphonuclear cells/lpf. Rare epithelial cells/lpf. Few gram positive cocci in pairs and chains. Few yeast. Rare epithelial cells/lpf. Few gram positive cocci in pairs and chains. Few yeast. Normal [facility] Comment on above: Performed By: #### C S/RE, S/GRM ####[id number] [place] [address] Sodiumon 06-12-2021 Sodium [Moles/Vol] 146 mmol/L High 135-145 [facility] Comment on above: Performed By: #### N A3 ####[address] Sodium [Moles/Vol] 146 mmol/L High 135-145 [facility] Comment on above: Performed By: #### N A3 ####[address] Sodium [Moles/Vol] 148 mmol/L High 135-145 [facility] Comment on above: Performed By: #### N A3 ####[address] Arterial Blood Gaseson 06-11 CO2 [Moles/Vol] 34.0 mmol/L High 23.0-27.0 [facility] Comment on above: Performed By: #### A BG ####[address] HCO3 (Bld) [Moles/Vol] 32.5 mmol/L High 21.0-25.0 [facility] Comment on above: Performed By: #### A BG ####[address] Hemoglobin (Bld) [Mass/Vol] 11.6 g/dL Normal ScreenOnly [facility] Comment on above: Performed By: #### A BG ####[address] Oxygen (Bld) [Partial pressure] 72.4 mm[Hg] Low 80.0-100.0 [facility] Comment on above: Performed By: #### A BG ####[id number] [place], [place] Oxygen saturation in Blood 93.8 % Low 95.0-100.0 [facility] Comment on above: Performed By: #### A BG ####[id number] [place] pCO2 48.1 mm[Hg] High 35.0-45.0 [facility] Comment on above: Performed By: #### A BG ####[address] pH 7.448 Normal 7.350-7.450 [facility] Comment on above: Performed By: #### A BG ####[address] Std Base Excess 7.5 mmol/L High -3.0-3.0 [facility] Comment on above: Performed By: #### A BG ####[address] FIO2 .40 Normal [facility] Comment on above: Performed By: #### A BG ####[address] CO2 [Moles/Vol] 33.8 mmol/L High 23.0-27.0 [facility] Comment on above: Performed By: #### A BG ####[address] HCO3 (Bld) [Moles/Vol] 32.4 mmol/L High 21.0-25.0 [facility] Comment on above: Performed By: #### A BG ####[address] Hemoglobin (Bld) [Mass/Vol] 11.3 g/dL Normal ScreenOnly [facility] Comment on above: Performed By: #### A BG ####[id number] [place] Oxygen (Bld) [Partial pressure] 78.2 mm[Hg] Low 80.0-100.0 [facility] Comment on above: Performed By: #### A BG ####[id number] [place], [place] Oxygen saturation in Blood 95.3 % Normal 95.0-100.0 [facility] Comment on above: Performed By: #### A BG ####[address] [place] pCO2 46.2 mm[Hg] High 35.0-45.0 [facility] Comment on above: Performed By: #### A BG ####[address] pH 7.464 High 7.350-7.450 [facility] Comment on above: Performed By: #### A BG ####[address] Std Base Excess 7.7 mmol/L High -3.0-3.0 [facility] Comment on above: Performed By: #### A BG ####[address] FIO2 40% Normal [facility] Comment on above: Performed By: #### A BG ####[address] Basic Metabolic Panelon 07 Calcium [Mass/Vol] 8.8 mg/dL Normal 8.4-10.4 [facility] Comment on above: Performed By: #### L FT3, FERR3, DDI2, PHOS3, MG3, ICA, CRP2, BMP3M, LDH3, HEMDF ####[address] Anion gap [Moles/Vol] 6 mmol/L Normal 3-13 [facility] Comment on above: Performed By: #### L FT3, FERR3, DDI2, PHOS3, MG3, ICA, CRP2, BMP3M, LDH3, HEMDF ####[address] CO2 [Moles/Vol] 32 mmol/L High 22-30 [facility] Comment on above: Performed By: #### L FT3, FERR3, DDI2, PHOS3, MG3, ICA, CRP2, BMP3M, LDH3, HEMDF ####[address] Glucose [Mass/Vol] 133 mg/dL High 70-100 [facility] Comment on above: Performed By: #### L FT3, FERR3, DDI2, PHOS3, MG3, ICA, CRP2, BMP3M, LDH3, HEMDF ####[address] Urea nitrogen [Mass/Vol] 66 mg/dL High 7-20 [facility] Comment on above: Performed By: #### L FT3, FERR3, DDI2, PHOS3, MG3, ICA, CRP2, BMP3M, LDH3, HEMDF ####[address] Creatinine [Mass/Vol] 0.76 mg/dL Normal 0.52-1.25 [facility] Comment on above: Performed By: #### L FT3, FERR3, DDI2, PHOS3, MG3, ICA, CRP2, BMP3M, LDH3, HEMDF ####[address] GFR/1.73 sq M.predicted among blacks MDRD (S/P/Bld) [Vol rate/Area] mL/min/{1.73_m2} Normal >60 [facility] Comment on above: Performed By: #### L FT3, FERR3, DDI2, PHOS3, MG3, ICA, CRP2, BMP3M, LDH3, HEMDF ####[address] GFR/1.73 sq M.predicted among non-blacks MDRD (S/P/Bld) [Vol rate/Area] 89.4 mL/min/{1.73_m2} Normal >60 [facility] Comment on above: Result Comment: KDIG O guidelines provide the following GFR categories:Stage GFR(ml/min/1.73 m2) TermsG1 >=90 Normal or highG2 60-89 Mildly decreased*G3a 45-59 Mildly to moderately imvgulijeQ2v 30-44 Moderately to severely decreasedG4 15-29 Severely decreasedG5 <15 Kidney failure*Relative to young adult level.In the absence of evidence of kidney damage, neither GFRcategory G1 nor G2 fulfill the criteria for CKD.The CKD-EPI equation is validated in individuals 18 yearsof age and older. Currently the best equation forestimating glomerular filtration rate (GFR) from serumcreatinine in children is the Bedside Arechiga equation.It is less accurate in patients with extremes of musclemass, restriction of dietary protein, ingestion of creatine,extra-renal metabolism of creatinine, or treatment withmedications that affect renal tubular creatinine secretion. Performed By: #### L FT3, FERR3, DDI2, PHOS3, MG3, ICA, CRP2, BMP3M, LDH3, HEMDF ####[id number] [place], [place] Potassium [Moles/Vol] 4.6 mmol/L Normal 3.5-5.1 [facility] Comment on above: Performed By: #### L FT3, FERR3, DDI2, PHOS3, MG3, ICA, CRP2, BMP3M, LDH3, HEMDF ####[id number] [place], [place] Chloride [Moles/Vol] 110 mmol/L High 98-107 [facility] Comment on above: Performed By: #### L FT3, FERR3, DDI2, PHOS3, MG3, ICA, CRP2, BMP3M, LDH3, HEMDF ####[id number] [place], [place] Sodium [Moles/Vol] 147 mmol/L High 135-145 [facility] Comment on above: Performed By: #### L FT3, FERR3, DDI2, PHOS3, MG3, ICA, CRP2, BMP3M, LDH3, HEMDF ####[id number] [place] [address] C-Reactive Proteinon 021 CRP [Mass/Vol] 6.0 mg/L Normal 0.0-6.0 [facility] Comment on above: Result Comment: . Performed By: #### L FT3, FERR3, DDI2, PHOS3, MG3, ICA, CRP2, BMP3M, LDH3, HEMDF ####[id number] [place] [address] CR Chest Portableon 06-11-20 21 CR Chest Portable Normal [facility] Calcium,Ionizedon 06-11-2021 Ionized Ca,Measured 4.20 mg/dL Low 4.30-5.20 [facility] Comment on above: Performed By: #### L FT3, FERR3, DDI2, PHOS3, MG3, ICA, CRP2, BMP3M, LDH3, HEMDF ####[address] [address] pH, Ionized Calcium 7.51 High 7.31-7.46 [facility] Comment on above: Performed By: #### L FT3, FERR3, DDI2, PHOS3, MG3, ICA, CRP2, BMP3M, LDH3, HEMDF ####[address] [address] D-Dimer, Innovanceon 021 D-Dimer, Innovance 18.90 mg/L High <0.19-0.50 [facility] Comment on above: Result Comment: Inno carrington D-Dimer values of <0.50 mg/L FEU can be used incombination with a pre-test probability model (e.g. Well's)to exclude pulmonary embolism (PE) disease, as well as jodi in the diagnosis of deep vein thrombosis (DVT). Performed By: #### L FT3, FERR3, DDI2, PHOS3, MG3, ICA, CRP2, BMP3M, LDH3, HEMDF ####[id number] [place] [address] Ferritinon 06-11-2021 Ferritin [Mass/Vol] 43 ng/mL Normal 8-252 [facility] Comment on above: Performed By: #### L FT3, FERR3, DDI2, PHOS3, MG3, ICA, CRP2, BMP3M, LDH3, HEMDF ####[id number] [place] [address] Glucose,Bedsideon 06-11-2021 Glucose [Mass/Vol] 154 mg/dL High 70-100 [facility] Comment on above: Result Comment: Test performed by glucose meter. Results may be 10%-15% lowerthan serum/plasma values. (CLIA ID [id number]) Performed By: #### B GLU ####[address] [place] [address] Glucose [Mass/Vol] 184 mg/dL High 70-100 [facility] Comment on above: Result Comment: Test performed by glucose meter. Results may be 10%-15% lowerthan serum/plasma values. (CLIA ID [id number]) Performed By: #### B GLU ####[facility] [id number] [place] [address] Glucose [Mass/Vol] 125 mg/dL High 70-100 [facility] Comment on above: Result Comment: Test performed by glucose meter. Results may be 10%-15% lowerthan serum/plasma values. (CLIA ID [id number]) Performed By: #### B GLU ####[facility] [id number] [place] [address] Glucose [Mass/Vol] 138 mg/dL High 70-100 [facility] Comment on above: Result Comment: Test performed by glucose meter. Results may be 10%-15% lowerthan serum/plasma values. (CLIA ID [id number]) Performed By: #### B GLU ####[facility] [id number] [place] [address] Hemogram w/ Autodiffon 07-13 -2021 Abs Baso Cnt 0.1 10*3/uL Normal 0.0-0.2 [facility] Comment on above: Performed By: #### L FT3, FERR3, DDI2, PHOS3, MG3, ICA, CRP2, BMP3M, LDH3, HEMDF ####[address] Abs Neutrophile Cnt 10.1 10*3/uL High 1.8-7.0 [facility] Comment on above: Performed By: #### L FT3, FERR3, DDI2, PHOS3, MG3, ICA, CRP2, BMP3M, LDH3, HEMDF ####[address] Basophils/100 WBC (Bld) 0.9 % Normal 0.0-2.0 [facility] Comment on above: Performed By: #### L FT3, FERR3, DDI2, PHOS3, MG3, ICA, CRP2, BMP3M, LDH3, HEMDF ####[address] Eosinophils (Bld) [#/Vol] 0.0 10*3/uL Normal 0.0-0.5 [facility] Comment on above: Performed By: #### L FT3, FERR3, DDI2, PHOS3, MG3, ICA, CRP2, BMP3M, LDH3, HEMDF ####[address] Eosinophils/100 WBC (Bld) 0.3 % Low 1.0-6.0 [facility] Comment on above: Performed By: #### L FT3, FERR3, DDI2, PHOS3, MG3, ICA, CRP2, BMP3M, LDH3, HEMDF ####[address] Erythrocyte distribution width (RBC) [Ratio] 20.8 % High 11.5-14.5 [facility] Comment on above: Performed By: #### L FT3, FERR3, DDI2, PHOS3, MG3, ICA, CRP2, BMP3M, LDH3, HEMDF ####[address] Granulocytes/100 WBC (Bld) 83.4 % High 40.0-80.0 [facility] Comment on above: Performed By: #### L FT3, FERR3, DDI2, PHOS3, MG3, ICA, CRP2, BMP3M, LDH3, HEMDF ####[id number] [place], [place] Hematocrit (Bld) [Volume fraction] 34.3 % Low 35.0-47.0 [facility] Comment on above: Performed By: #### L FT3, FERR3, DDI2, PHOS3, MG3, ICA, CRP2, BMP3M, LDH3, HEMDF ####[address] Hemoglobin (Bld) [Mass/Vol] 10.7 g/dL Low 11.7-16.0 [facility] Comment on above: Performed By: #### L FT3, FERR3, DDI2, PHOS3, MG3, ICA, CRP2, BMP3M, LDH3, HEMDF ####[address] Lymphocytes (Bld) [#/Vol] 0.6 10*3/uL Low 1.0-4.3 [facility] Comment on above: Performed By: #### L FT3, FERR3, DDI2, PHOS3, MG3, ICA, CRP2, BMP3M, LDH3, HEMDF ####[address] Lymphocytes/100 WBC (Bld) 5.2 % Low 20.0-40.0 [facility] Comment on above: Performed By: #### L FT3, FERR3, DDI2, PHOS3, MG3, ICA, CRP2, BMP3M, LDH3, HEMDF ####[address] MCH (RBC) [Entitic mass] 22.1 pg Low 26.0-34.0 [facility] Comment on above: Performed By: #### L FT3, FERR3, DDI2, PHOS3, MG3, ICA, CRP2, BMP3M, LDH3, HEMDF ####[id number] [place], [place] MCHC 31.2 % Low 32.0-36.0 [facility] Comment on above: Performed By: #### L FT3, FERR3, DDI2, PHOS3, MG3, ICA, CRP2, BMP3M, LDH3, HEMDF ####[address] MCV (RBC) [Entitic vol] 70.9 fL Low 79.0-98.0 [facility] Comment on above: Performed By: #### L FT3, FERR3, DDI2, PHOS3, MG3, ICA, CRP2, BMP3M, LDH3, HEMDF ####[address] Monocytes (Bld) [#/Vol] 1.2 10*3/uL High 0.0-0.8 [facility] Comment on above: Performed By: #### L FT3, FERR3, DDI2, PHOS3, MG3, ICA, CRP2, BMP3M, LDH3, HEMDF ####[address] Monocytes/100 WBC (Bld) 10.2 % High 2.0-10.0 [facility] Comment on above: Performed By: #### L FT3, FERR3, DDI2, PHOS3, MG3, ICA, CRP2, BMP3M, LDH3, HEMDF ####[address] Platelet mean volume (Bld) [Entitic vol] 7.9 fL Normal 7.4-10.4 [facility] Comment on above: Performed By: #### L FT3, FERR3, DDI2, PHOS3, MG3, ICA, CRP2, BMP3M, LDH3, HEMDF ####[address] [place], [place] Platelets (Bld) [#/Vol] 265 10*3/uL Normal 140-440 [facility] Comment on above: Performed By: #### L FT3, FERR3, DDI2, PHOS3, MG3, ICA, CRP2, BMP3M, LDH3, HEMDF ####[id number] [place], [place] RBC (Bld) [#/Vol] 4.85 10*6/uL Normal 3.80-5.20 [facility] Comment on above: Performed By: #### L FT3, FERR3, DDI2, PHOS3, MG3, ICA, CRP2, BMP3M, LDH3, HEMDF ####[id number] [place], [place] WBC (Bld) [#/Vol] 12.1 10*3/uL High 3.6-10.7 [facility] Comment on above: Performed By: #### L FT3, FERR3, DDI2, PHOS3, MG3, ICA, CRP2, BMP3M, LDH3, HEMDF ####[id number] [place], [place] Hepatic Functionon 1 ALP [Catalytic activity/Vol] 81 U/L Normal 38-126 [facility] Comment on above: Performed By: #### L FT3, FERR3, DDI2, PHOS3, MG3, ICA, CRP2, BMP3M, LDH3, HEMDF ####[id number] [place], [place] ALT [Catalytic activity/Vol] 72 U/L High 0-34 [facility] Comment on above: Result Comment: The ALT test is performed by an updated assay method.Please note that the reference intervals have beenchanged and are now sex specific. Performed By: #### L FT3, FERR3, DDI2, PHOS3, MG3, ICA, CRP2, BMP3M, LDH3, HEMDF ####[address] AST [Catalytic activity/Vol] 32 U/L Normal 15-46 [facility] Comment on above: Performed By: #### L FT3, FERR3, DDI2, PHOS3, MG3, ICA, CRP2, BMP3M, LDH3, HEMDF ####[address] Bilirubin [Mass/Vol] 0.4 mg/dL Normal 0.2-1.3 [facility] Comment on above: Performed By: #### L FT3, FERR3, DDI2, PHOS3, MG3, ICA, CRP2, BMP3M, LDH3, HEMDF ####[address] Protein [Mass/Vol] 6.3 g/dL Normal 6.3-8.2 [facility] Comment on above: Performed By: #### L FT3, FERR3, DDI2, PHOS3, MG3, ICA, CRP2, BMP3M, LDH3, HEMDF ####[address] Bilirubin.indirect [Mass/Vol] 0.0 mg/dL Normal 0.0-0.3 [facility] Comment on above: Performed By: #### L FT3, FERR3, DDI2, PHOS3, MG3, ICA, CRP2, BMP3M, LDH3, HEMDF ####[address] Albumin [Mass/Vol] 3.2 g/dL Low 3.5-5.0 [facility] Comment on above: Performed By: #### L FT3, FERR3, DDI2, PHOS3, MG3, ICA, CRP2, BMP3M, LDH3, HEMDF ####[address] LDHon 06-11-2021 LDH 264 U/L High 120-246 [facility] Comment on above: Performed By: #### L FT3, FERR3, DDI2, PHOS3, MG3, ICA, CRP2, BMP3M, LDH3, HEMDF ####[id number] [place] [address] Magnesiumon 06-11-2021 Magnesium [Mass/Vol] 2.6 mg/dL High 1.6-2.3 [facility] Comment on above: Performed By: #### L FT3, FERR3, DDI2, PHOS3, MG3, ICA, CRP2, BMP3M, LDH3, HEMDF ####[id number] [place] [address] Phosphoruson 06-11-2021 Phosphate [Mass/Vol] 3.7 mg/dL Normal 2.5-4.5 [facility] Comment on above: Performed By: #### L FT3, FERR3, DDI2, PHOS3, MG3, ICA, CRP2, BMP3M, LDH3, HEMDF ####[id number] [place] [address] Arterial Blood Gaseson 06-10 CO2 [Moles/Vol] 36.1 mmol/L High 23.0-27.0 [facility] Comment on above: Performed By: #### A BG ####[id number] [place] [address] HCO3 (Bld) [Moles/Vol] 34.5 mmol/L High 21.0-25.0 [facility] Comment on above: Performed By: #### A BG ####[id number] [place] [address] Hemoglobin (Bld) [Mass/Vol] 12.2 g/dL Normal ScreenOnly [facility] Comment on above: Performed By: #### A BG ####[id number] [place] [address] Oxygen (Bld) [Partial pressure] 87.2 mm[Hg] Normal 80.0-100.0 [facility] Comment on above: Performed By: #### A BG ####[address] Oxygen saturation in Blood 95.5 % Normal 95.0-100.0 [facility] Comment on above: Performed By: #### A BG ####[id number] [place] pCO2 50.8 mm[Hg] High 35.0-45.0 [facility] Comment on above: Performed By: #### A BG ####[id number] [place] pH 7.450 Normal 7.350-7.450 [facility] Comment on above: Performed By: #### A BG ####[address] Std Base Excess 9.1 mmol/L High -3.0-3.0 [facility] Comment on above: Performed By: #### A BG ####[id number] [place], [place] FIO2 No data Normal [facility] Comment on above: Performed By: #### A BG ####[address] FIO2 No data, on ice Normal [facility] Comment on above: Result Comment: This sample was received in the lab on ice and/oranalysis was delayed beyond the recommended 30minutes. Low temperatures cause artefactual increasesin pO2. Delay in analysis at room temperature cancause artefactual decreases in pO2, and sO2, and pHwith increase in pCO2. It is recommended that resultsbe correlated clinically and the sample be recollectedand analyzed promptly if clinically indicated. Performed By: #### A BG ####[id number] [place] CO2 [Moles/Vol] 35.3 mmol/L High 23.0-27.0 [facility] Comment on above: Performed By: #### A BG ####[id number] [place], [place] HCO3 (Bld) [Moles/Vol] 33.9 mmol/L High 21.0-25.0 [facility] Comment on above: Performed By: #### A BG ####[address] Hemoglobin (Bld) [Mass/Vol] 11.7 g/dL Normal ScreenOnly [facility] Comment on above: Performed By: #### A BG ####[id number] [place], [place] Oxygen (Bld) [Partial pressure] 68.7 mm[Hg] Low 80.0-100.0 [facility] Comment on above: Performed By: #### A BG ####[id number] [place], [place] Oxygen saturation in Blood 92.6 % Low 95.0-100.0 [facility] Comment on above: Performed By: #### A BG ####[id number] [place], [place] pCO2 44.4 mm[Hg] Normal 35.0-45.0 [facility] Comment on above: Performed By: #### A BG ####[address] pH 7.501 High 7.350-7.450 [facility] Comment on above: Performed By: #### A BG ####[address] Std Base Excess 9.7 mmol/L High -3.0-3.0 [facility] Comment on above: Performed By: #### A BG ####[id number] [place], [place] Basic Metabolic Panelon 05-30 Anion gap [Moles/Vol] 5 mmol/L Normal 3-13 [facility] Comment on above: Performed By: #### L FT3, BMP3M, HEMDF, CRP2, DDI2, MG3, LDH3, PHOS3, FERR3, ICA ####[id number] [place], [place] Calcium [Mass/Vol] 8.9 mg/dL Normal 8.4-10.4 [facility] Comment on above: Performed By: #### L FT3, BMP3M, HEMDF, CRP2, DDI2, MG3, LDH3, PHOS3, FERR3, ICA ####[id number] [place], [place] CO2 [Moles/Vol] 32 mmol/L High 22-30 [facility] Comment on above: Performed By: #### L FT3, BMP3M, HEMDF, CRP2, DDI2, MG3, LDH3, PHOS3, FERR3, ICA ####[id number] [place], [place] Glucose [Mass/Vol] 129 mg/dL High 70-100 [facility] Comment on above: Performed By: #### L FT3, BMP3M, HEMDF, CRP2, DDI2, MG3, LDH3, PHOS3, FERR3, ICA ####[address] Urea nitrogen [Mass/Vol] 65 mg/dL High 7-20 [facility] Comment on above: Performed By: #### L FT3, BMP3M, HEMDF, CRP2, DDI2, MG3, LDH3, PHOS3, FERR3, ICA ####[address] Creatinine [Mass/Vol] 0.81 mg/dL Normal 0.52-1.25 [facility] Comment on above: Performed By: #### L FT3, BMP3M, HEMDF, CRP2, DDI2, MG3, LDH3, PHOS3, FERR3, ICA ####[address] GFR/1.73 sq M.predicted among blacks MDRD (S/P/Bld) [Vol rate/Area] mL/min/{1.73_m2} Normal >60 [facility] Comment on above: Performed By: #### L FT3, BMP3M, HEMDF, CRP2, DDI2, MG3, LDH3, PHOS3, FERR3, ICA ####[id number] [place], [place] GFR/1.73 sq M.predicted among non-blacks MDRD (S/P/Bld) [Vol rate/Area] 82.7 mL/min/{1.73_m2} Normal >60 [facility] Comment on above: Result Comment: KDIG O guidelines provide the following GFR categories:Stage GFR(ml/min/1.73 m2) TermsG1 >=90 Normal or highG2 60-89 Mildly decreased*G3a 45-59 Mildly to moderately [id number] 30-44 Moderately to severely decreasedG4 15-29 Severely decreasedG5 <15 Kidney failure*Relative to young adult level.In the absence of evidence of kidney damage, neither GFRcategory G1 nor G2 fulfill the criteria for CKD.The CKD-EPI equation is validated in individuals 18 yearsof age and older. Currently the best equation forestimating glomerular filtration rate (GFR) from serumcreatinine in children is the Bedside Arechiga equation.It is less accurate in patients with extremes of musclemass, restriction of dietary protein, ingestion of creatine,extra-renal metabolism of creatinine, or treatment withmedications that affect renal tubular creatinine secretion. Performed By: #### L FT3, BMP3M, HEMDF, CRP2, DDI2, MG3, LDH3, PHOS3, FERR3, ICA ####[id number] [place], [place] Potassium [Moles/Vol] 4.2 mmol/L Normal 3.5-5.1 [facility] Comment on above: Performed By: #### L FT3, BMP3M, HEMDF, CRP2, DDI2, MG3, LDH3, PHOS3, FERR3, ICA ####[id number] [place], [place] Sodium [Moles/Vol] 146 mmol/L High 135-145 [facility] Comment on above: Performed By: #### L FT3, BMP3M, HEMDF, CRP2, DDI2, MG3, LDH3, PHOS3, FERR3, ICA ####[id number] [place], [place] Chloride [Moles/Vol] 109 mmol/L High 98-107 [facility] Comment on above: Performed By: #### L FT3, BMP3M, HEMDF, CRP2, DDI2, MG3, LDH3, PHOS3, FERR3, ICA ####[id number] [place] [address] C-Reactive Proteinon 021 CRP [Mass/Vol] 7.1 mg/L High 0.0-6.0 [facility] Comment on above: Result Comment: . Performed By: #### L FT3, BMP3M, HEMDF, CRP2, DDI2, MG3, LDH3, PHOS3, FERR3, ICA ####[id number] [place], [place] CR Chest Portableon 06-10-20 21 CR Chest Portable Normal [facility] CULT./ST. RESPIRATORYon 05-30 CULT./ST. RESPIRATORY CULT./ST. RESPIRAT ORY --> Status: F No growth of normal respiratory pretty. 1 Organism Evin albicans Few Normal [facility] Comment on above: Performed By: #### C S/RE, S/GRM ####[id number] [place], [place] Calcium,Ionizedon 06-10-2021 Ionized Ca,Measured 4.60 mg/dL Normal 4.30-5.20 [facility] Comment on above: Performed By: #### L FT3, BMP3M, HEMDF, CRP2, DDI2, MG3, LDH3, PHOS3, FERR3, ICA ####[id number] [place], [place] pH, Ionized Calcium 7.49 High 7.31-7.46 [facility] Comment on above: Performed By: #### L FT3, BMP3M, HEMDF, CRP2, DDI2, MG3, LDH3, PHOS3, FERR3, ICA ####[id number] [place], [place] D-Dimer, Innovanceon 021 D-Dimer, Innovance 20.61 mg/L High <0.19-0.50 [facility] Comment on above: Result Comment: Inno carrington D-Dimer values of <0.50 mg/L FEU can be used incombination with a pre-test probability model (e.g. Well's)to exclude pulmonary embolism (PE) disease, as well as jodi in the diagnosis of deep vein thrombosis (DVT). Performed By: #### L FT3, BMP3M, HEMDF, CRP2, DDI2, MG3, LDH3, PHOS3, FERR3, ICA ####[employer] [id number] [place] [address] Ferritinon 06-10-2021 Ferritin [Mass/Vol] 54 ng/mL Normal 8-252 [facility] Comment on above: Performed By: #### L FT3, BMP3M, HEMDF, CRP2, DDI2, MG3, LDH3, PHOS3, FERR3, ICA ####[employer] [id number] [place] [address] Glucose,Bedsideon 06-10-2021 Glucose [Mass/Vol] 150 mg/dL High 70-100 [facility] Comment on above: Result Comment: Test performed by glucose meter. Results may be 10%-15% lowerthan serum/plasma values. (CLIA ID [id number]) Performed By: #### B GLU ####[id number] [place] [address] Glucose [Mass/Vol] 164 mg/dL High 70-100 [facility] Comment on above: Result Comment: Test performed by glucose meter. Results may be 10%-15% lowerthan serum/plasma values. (CLIA ID [id number]) Performed By: #### B GLU ####[id number] [place] [address] Glucose [Mass/Vol] 130 mg/dL High 70-100 [facility] Comment on above: Result Comment: Test performed by glucose meter. Results may be 10%-15% lowerthan serum/plasma values. (CLIA ID [id number]) Performed By: #### B GLU ####[id number] [place] [address] Glucose [Mass/Vol] 121 mg/dL High 70-100 [facility] Comment on above: Result Comment: Test performed by glucose meter. Results may be 10%-15% lowerthan serum/plasma values. (CLIA ID [id number]) Performed By: #### B GLU ####[address] Hemogram w/ Autodiffon 06-10 Abs Baso Cnt 0.0 10*3/uL Normal 0.0-0.2 [facility] Comment on above: Performed By: #### L FT3, BMP3M, HEMDF, CRP2, DDI2, MG3, LDH3, PHOS3, FERR3, ICA ####[address] Abs Neutrophile Cnt 8.8 10*3/uL High 1.8-7.0 [facility] Comment on above: Performed By: #### L FT3, BMP3M, HEMDF, CRP2, DDI2, MG3, LDH3, PHOS3, FERR3, ICA ####[address] Basophils/100 WBC (Bld) 0.2 % Normal 0.0-2.0 [facility] Comment on above: Performed By: #### L FT3, BMP3M, HEMDF, CRP2, DDI2, MG3, LDH3, PHOS3, FERR3, ICA ####[address] Eosinophils (Bld) [#/Vol] 0.1 10*3/uL Normal 0.0-0.5 [facility] Comment on above: Performed By: #### L FT3, BMP3M, HEMDF, CRP2, DDI2, MG3, LDH3, PHOS3, FERR3, ICA ####[address] Eosinophils/100 WBC (Bld) 1.2 % Normal 1.0-6.0 [facility] Comment on above: Performed By: #### L FT3, BMP3M, HEMDF, CRP2, DDI2, MG3, LDH3, PHOS3, FERR3, ICA ####[address] Erythrocyte distribution width (RBC) [Ratio] 20.6 % High 11.5-14.5 [facility] Comment on above: Performed By: #### L FT3, BMP3M, HEMDF, CRP2, DDI2, MG3, LDH3, PHOS3, FERR3, ICA ####[address] Granulocytes/100 WBC (Bld) 82.5 % High 40.0-80.0 [facility] Comment on above: Performed By: #### L FT3, BMP3M, HEMDF, CRP2, DDI2, MG3, LDH3, PHOS3, FERR3, ICA ####[address] Hematocrit (Bld) [Volume fraction] 33.7 % Low 35.0-47.0 [facility] Comment on above: Performed By: #### L FT3, BMP3M, HEMDF, CRP2, DDI2, MG3, LDH3, PHOS3, FERR3, ICA ####[address] Hemoglobin (Bld) [Mass/Vol] 10.6 g/dL Low 11.7-16.0 [facility] Comment on above: Performed By: #### L FT3, BMP3M, HEMDF, CRP2, DDI2, MG3, LDH3, PHOS3, FERR3, ICA ####[address] Lymphocytes (Bld) [#/Vol] 0.7 10*3/uL Low 1.0-4.3 [facility] Comment on above: Performed By: #### L FT3, BMP3M, HEMDF, CRP2, DDI2, MG3, LDH3, PHOS3, FERR3, ICA ####[address] Lymphocytes/100 WBC (Bld) 6.9 % Low 20.0-40.0 [facility] Comment on above: Performed By: #### L FT3, BMP3M, HEMDF, CRP2, DDI2, MG3, LDH3, PHOS3, FERR3, ICA ####[id number] [place], [place] MCH (RBC) [Entitic mass] 22.5 pg Low 26.0-34.0 [facility] Comment on above: Performed By: #### L FT3, BMP3M, HEMDF, CRP2, DDI2, MG3, LDH3, PHOS3, FERR3, ICA ####[address] MCHC 31.4 % Low 32.0-36.0 [facility] Comment on above: Performed By: #### L FT3, BMP3M, HEMDF, CRP2, DDI2, MG3, LDH3, PHOS3, FERR3, ICA ####[address] MCV (RBC) [Entitic vol] 71.7 fL Low 79.0-98.0 [facility] Comment on above: Performed By: #### L FT3, BMP3M, HEMDF, CRP2, DDI2, MG3, LDH3, PHOS3, FERR3, ICA ####[address] Monocytes (Bld) [#/Vol] 1.0 10*3/uL High 0.0-0.8 [facility] Comment on above: Performed By: #### L FT3, BMP3M, HEMDF, CRP2, DDI2, MG3, LDH3, PHOS3, FERR3, ICA ####[address] Monocytes/100 WBC (Bld) 9.2 % Normal 2.0-10.0 [facility] Comment on above: Performed By: #### L FT3, BMP3M, HEMDF, CRP2, DDI2, MG3, LDH3, PHOS3, FERR3, ICA ####[address] [place] Platelet mean volume (Bld) [Entitic vol] 7.9 fL Normal 7.4-10.4 [facility] Comment on above: Performed By: #### L FT3, BMP3M, HEMDF, CRP2, DDI2, MG3, LDH3, PHOS3, FERR3, ICA ####[id number] [place], [place] Platelets (Bld) [#/Vol] 253 10*3/uL Normal 140-440 [facility] Comment on above: Performed By: #### L FT3, BMP3M, HEMDF, CRP2, DDI2, MG3, LDH3, PHOS3, FERR3, ICA ####[id number] [place], [place] RBC (Bld) [#/Vol] 4.70 10*6/uL Normal 3.80-5.20 [facility] Comment on above: Performed By: #### L FT3, BMP3M, HEMDF, CRP2, DDI2, MG3, LDH3, PHOS3, FERR3, ICA ####[id number] [place], [place] WBC (Bld) [#/Vol] 10.7 10*3/uL Normal 3.6-10.7 [facility] Comment on above: Performed By: #### L FT3, BMP3M, HEMDF, CRP2, DDI2, MG3, LDH3, PHOS3, FERR3, ICA ####[id number] [place], [place] Hepatic Functionon 1 ALP [Catalytic activity/Vol] 80 U/L Normal 38-126 [facility] Comment on above: Performed By: #### L FT3, BMP3M, HEMDF, CRP2, DDI2, MG3, LDH3, PHOS3, FERR3, ICA ####[id number] [place], [place] ALT [Catalytic activity/Vol] 85 U/L High 0-34 [facility] Comment on above: Result Comment: The ALT test is performed by an updated assay method.Please note that the reference intervals have beenchanged and are now sex specific. Performed By: #### L FT3, BMP3M, HEMDF, CRP2, DDI2, MG3, LDH3, PHOS3, FERR3, ICA ####[address] AST [Catalytic activity/Vol] 38 U/L Normal 15-46 [facility] Comment on above: Performed By: #### L FT3, BMP3M, HEMDF, CRP2, DDI2, MG3, LDH3, PHOS3, FERR3, ICA ####[address] Bilirubin [Mass/Vol] 0.6 mg/dL Normal 0.2-1.3 [facility] Comment on above: Performed By: #### L FT3, BMP3M, HEMDF, CRP2, DDI2, MG3, LDH3, PHOS3, FERR3, ICA ####[address] Bilirubin.indirect [Mass/Vol] 0.0 mg/dL Normal 0.0-0.3 [facility] Comment on above: Performed By: #### L FT3, BMP3M, HEMDF, CRP2, DDI2, MG3, LDH3, PHOS3, FERR3, ICA ####[address] Protein [Mass/Vol] 6.5 g/dL Normal 6.3-8.2 [facility] Comment on above: Performed By: #### L FT3, BMP3M, HEMDF, CRP2, DDI2, MG3, LDH3, PHOS3, FERR3, ICA ####[address] Albumin [Mass/Vol] 3.2 g/dL Low 3.5-5.0 [facility] Comment on above: Performed By: #### L FT3, BMP3M, HEMDF, CRP2, DDI2, MG3, LDH3, PHOS3, FERR3, ICA ####[id number] [place] [address] LDHon 06-10-2021 LDH 268 U/L High 120-246 [facility] Comment on above: Performed By: #### L FT3, BMP3M, HEMDF, CRP2, DDI2, MG3, LDH3, PHOS3, FERR3, ICA ####[facility] [place], [place] Magnesiumon 06-10-2021 Magnesium [Mass/Vol] 2.7 mg/dL High 1.6-2.3 [facility] Comment on above: Performed By: #### L FT3, BMP3M, HEMDF, CRP2, DDI2, MG3, LDH3, PHOS3, FERR3, ICA ####[id number] [place] [address] Phosphoruson 06-10-2021 Phosphate [Mass/Vol] 3.5 mg/dL Normal 2.5-4.5 [facility] Comment on above: Performed By: #### L FT3, BMP3M, HEMDF, CRP2, DDI2, MG3, LDH3, PHOS3, FERR3, ICA ####[id number] [place], [place] VL Venous Duplex US Upper Ex t Bilateralon 06-10-2021 VL Venous Duplex US Upper Ext Bilateral Normal [facility] Arterial Blood Gaseson 06-09 CO2 [Moles/Vol] 31.8 mmol/L High 23.0-27.0 [facility] Comment on above: Performed By: #### A BG ####[id number] [place] HCO3 (Bld) [Moles/Vol] 30.4 mmol/L High 21.0-25.0 [facility] Comment on above: Performed By: #### A BG ####[id number] [place] [address] Hemoglobin (Bld) [Mass/Vol] 10.9 g/dL Normal ScreenOnly [facility] Comment on above: Performed By: #### A BG ####[id number] [place] Oxygen (Bld) [Partial pressure] 85.3 mm[Hg] Normal 80.0-100.0 [facility] Comment on above: Performed By: #### A BG ####[address] [place] Oxygen saturation in Blood 96.1 % Normal 95.0-100.0 [facility] Comment on above: Performed By: #### A BG ####[address] [place] pCO2 45.2 mm[Hg] High 35.0-45.0 [facility] Comment on above: Performed By: #### A BG ####[address] pH 7.446 Normal 7.350-7.450 [facility] Comment on above: Performed By: #### A BG ####[address] Std Base Excess 5.7 mmol/L High -3.0-3.0 [facility] Comment on above: Performed By: #### A BG ####[address] FIO2 40% Normal [facility] Comment on above: Performed By: #### A BG ####[address] [place] CO2 [Moles/Vol] 31.6 mmol/L High 23.0-27.0 [facility] Comment on above: Performed By: #### A BG ####[address] HCO3 (Bld) [Moles/Vol] 30.2 mmol/L High 21.0-25.0 [facility] Comment on above: Performed By: #### A BG ####[address] Hemoglobin (Bld) [Mass/Vol] 12.4 g/dL Normal ScreenOnly [facility] Comment on above: Performed By: #### A BG ####[id number] [place], [place] Oxygen (Bld) [Partial pressure] 77.1 mm[Hg] Low 80.0-100.0 [facility] Comment on above: Performed By: #### A BG ####[address] [place] Oxygen saturation in Blood 94.9 % Low 95.0-100.0 [facility] Comment on above: Performed By: #### A BG ####[address] [place] pCO2 46.4 mm[Hg] High 35.0-45.0 [facility] Comment on above: Performed By: #### A BG ####[id number] [place], [place] pH 7.431 Normal 7.350-7.450 [facility] Comment on above: Performed By: #### A BG ####[address] Std Base Excess 5.1 mmol/L High -3.0-3.0 [facility] Comment on above: Performed By: #### A BG ####[address] FIO2 No data Normal [facility] Comment on above: Performed By: #### A BG ####[address] Basic Metabolic Panelon 07- Calcium [Mass/Vol] 8.6 mg/dL Normal 8.4-10.4 [facility] Comment on above: Performed By: #### L DH3, ICA, HEMDF, BMP3M, LFT3, CRP2, MG3, FERR3, PHOS3, DDI2 ####[id number] [place], [place] Anion gap [Moles/Vol] 4 mmol/L Normal 3-13 [facility] Comment on above: Performed By: #### L DH3, ICA, HEMDF, BMP3M, LFT3, CRP2, MG3, FERR3, PHOS3, DDI2 ####[address] CO2 [Moles/Vol] 32 mmol/L High 22-30 [facility] Comment on above: Performed By: #### L DH3, ICA, HEMDF, BMP3M, LFT3, CRP2, MG3, FERR3, PHOS3, DDI2 ####[address] Glucose [Mass/Vol] 125 mg/dL High 70-100 [facility] Comment on above: Performed By: #### L DH3, ICA, HEMDF, BMP3M, LFT3, CRP2, MG3, FERR3, PHOS3, DDI2 ####[address] Urea nitrogen [Mass/Vol] 72 mg/dL High 7-20 [facility] Comment on above: Performed By: #### L DH3, ICA, HEMDF, BMP3M, LFT3, CRP2, MG3, FERR3, PHOS3, DDI2 ####[address] Creatinine [Mass/Vol] 1.10 mg/dL Normal 0.52-1.25 [facility] Comment on above: Performed By: #### L DH3, ICA, HEMDF, BMP3M, LFT3, CRP2, MG3, FERR3, PHOS3, DDI2 ####[address] GFR/1.73 sq M.predicted among blacks MDRD (S/P/Bld) [Vol rate/Area] 66.2 mL/min/{1.73_m2} Normal >60 [facility] Comment on above: Performed By: #### L DH3, ICA, HEMDF, BMP3M, LFT3, CRP2, MG3, FERR3, PHOS3, DDI2 ####[address] GFR/1.73 sq M.predicted among non-blacks MDRD (S/P/Bld) [Vol rate/Area] 57.1 mL/min/{1.73_m2} Abnormal >60 [facility] Comment on above: Result Comment: KDIG O guidelines provide the following GFR categories:Stage GFR(ml/min/1.73 m2) TermsG1 >=90 Normal or highG2 60-89 Mildly decreased*G3a 45-59 Mildly to moderately [id number] 30-44 Moderately to severely decreasedG4 15-29 Severely decreasedG5 <15 Kidney failure*Relative to young adult level.In the absence of evidence of kidney damage, neither GFRcategory G1 nor G2 fulfill the criteria for CKD.The CKD-EPI equation is validated in individuals 18 yearsof age and older. Currently the best equation forestimating glomerular filtration rate (GFR) from serumcreatinine in children is the Bedside Arechiga equation.It is less accurate in patients with extremes of musclemass, restriction of dietary protein, ingestion of creatine,extra-renal metabolism of creatinine, or treatment withmedications that affect renal tubular creatinine secretion. Performed By: #### L DH3, ICA, HEMDF, BMP3M, LFT3, CRP2, MG3, FERR3, PHOS3, DDI2 ####[address] Potassium [Moles/Vol] 4.0 mmol/L Normal 3.5-5.1 [facility] Comment on above: Performed By: #### L DH3, ICA, HEMDF, BMP3M, LFT3, CRP2, MG3, FERR3, PHOS3, DDI2 ####[id number] [place], [place] Chloride [Moles/Vol] 108 mmol/L High 98-107 [facility] Comment on above: Performed By: #### L DH3, ICA, HEMDF, BMP3M, LFT3, CRP2, MG3, FERR3, PHOS3, DDI2 ####[address] Sodium [Moles/Vol] 143 mmol/L Normal 135-145 [facility] Comment on above: Performed By: #### L DH3, ICA, HEMDF, BMP3M, LFT3, CRP2, MG3, FERR3, PHOS3, DDI2 ####[id number] [place], [place] C-Reactive Proteinon 021 CRP [Mass/Vol] 9.7 mg/L High 0.0-6.0 [facility] Comment on above: Result Comment: . Performed By: #### L DH3, ICA, HEMDF, BMP3M, LFT3, CRP2, MG3, FERR3, PHOS3, DDI2 ####[id number] [place], [place] CR Chest Portableon 06-09-20 21 CR Chest Portable Normal [facility] CULTURE BLOODon 06-09-2021 Microscopic examination of blood, culture CULTURE BLOOD --> Status: F No growth at 5 days. Normal [facility] Comment on above: Performed By: #### C /BLD ####[address] CULTURE BLOOD (Two)on 2020 Microscopic examination of blood, culture CULTURE BLOOD (Two) --> Status: F No growth at 5 days. Normal [facility] Comment on above: Performed By: #### C /BLT ####[address] Calcium,Ionizedon 06-09-2021 Ionized Ca,Measured 4.50 mg/dL Normal 4.30-5.20 [facility] Comment on above: Performed By: #### L DH3, ICA, HEMDF, BMP3M, LFT3, CRP2, MG3, FERR3, PHOS3, DDI2 ####[id number] [place], [place] pH, Ionized Calcium 7.44 Normal 7.31-7.46 [facility] Comment on above: Performed By: #### L DH3, ICA, HEMDF, BMP3M, LFT3, CRP2, MG3, FERR3, PHOS3, DDI2 ####[id number] [facility] [place] [address] D-Dimer, Innovanceon 06-09- 021 D-Dimer, Innovance 25.09 mg/L High <0.19-0.50 [facility] Comment on above: Result Comment: Inno carrington D-Dimer values of <0.50 mg/L FEU can be used incombination with a pre-test probability model (e.g. Well's)to exclude pulmonary embolism (PE) disease, as well as jodi in the diagnosis of deep vein thrombosis (DVT). Performed By: #### L DH3, ICA, HEMDF, BMP3M, LFT3, CRP2, MG3, FERR3, PHOS3, DDI2 ####[email or web address] [facility] [place] [address] Ferritinon 06-09-2021 Ferritin [Mass/Vol] 62 ng/mL Normal 8-252 [facility] Comment on above: Performed By: #### L DH3, ICA, HEMDF, BMP3M, LFT3, CRP2, MG3, FERR3, PHOS3, DDI2 ####[email or web address] [facility] [place] [address] Glucose,Bedsideon 06-09-2021 Glucose [Mass/Vol] 154 mg/dL High 70-100 [facility] Comment on above: Result Comment: Test performed by glucose meter. Results may be 10%-15% lowerthan serum/plasma values. (CLIA ID [id number]) Performed By: #### B GLU ####[id number] [facility] [place] [address] Glucose [Mass/Vol] 179 mg/dL High 70-100 [facility] Comment on above: Result Comment: Test performed by glucose meter. Results may be 10%-15% lowerthan serum/plasma values. (CLIA ID [id number]) Performed By: #### B GLU ####[employer] [facility] [place] [address] Glucose [Mass/Vol] 128 mg/dL High 70-100 [facility] Comment on above: Result Comment: Test performed by glucose meter. Results may be 10%-15% lowerthan serum/plasma values. (CLIA ID [id number]) Performed By: #### B GLU ####[address] Hemogram w/ Autodiffon 06-09 Abs Baso Cnt 0.0 10*3/uL Normal 0.0-0.2 [facility] Comment on above: Performed By: #### L DH3, ICA, HEMDF, BMP3M, LFT3, CRP2, MG3, FERR3, PHOS3, DDI2 ####[address] Abs Neutrophile Cnt 8.3 10*3/uL High 1.8-7.0 [facility] Comment on above: Performed By: #### L DH3, ICA, HEMDF, BMP3M, LFT3, CRP2, MG3, FERR3, PHOS3, DDI2 ####[address] Basophils/100 WBC (Bld) 0.1 % Normal 0.0-2.0 [facility] Comment on above: Performed By: #### L DH3, ICA, HEMDF, BMP3M, LFT3, CRP2, MG3, FERR3, PHOS3, DDI2 ####[address] Eosinophils (Bld) [#/Vol] 0.2 10*3/uL Normal 0.0-0.5 [facility] Comment on above: Performed By: #### L DH3, ICA, HEMDF, BMP3M, LFT3, CRP2, MG3, FERR3, PHOS3, DDI2 ####[address] Eosinophils/100 WBC (Bld) 1.6 % Normal 1.0-6.0 [facility] Comment on above: Performed By: #### L DH3, ICA, HEMDF, BMP3M, LFT3, CRP2, MG3, FERR3, PHOS3, DDI2 ####[address] Erythrocyte distribution width (RBC) [Ratio] 21.0 % High 11.5-14.5 [facility] Comment on above: Performed By: #### L DH3, ICA, HEMDF, BMP3M, LFT3, CRP2, MG3, FERR3, PHOS3, DDI2 ####[address] Granulocytes/100 WBC (Bld) 81.2 % High 40.0-80.0 [facility] Comment on above: Performed By: #### L DH3, ICA, HEMDF, BMP3M, LFT3, CRP2, MG3, FERR3, PHOS3, DDI2 ####[address] Hematocrit (Bld) [Volume fraction] 33.5 % Low 35.0-47.0 [facility] Comment on above: Performed By: #### L DH3, ICA, HEMDF, BMP3M, LFT3, CRP2, MG3, FERR3, PHOS3, DDI2 ####[address] Hemoglobin (Bld) [Mass/Vol] 10.5 g/dL Low 11.7-16.0 [facility] Comment on above: Performed By: #### L DH3, ICA, HEMDF, BMP3M, LFT3, CRP2, MG3, FERR3, PHOS3, DDI2 ####[address] Lymphocytes (Bld) [#/Vol] 0.8 10*3/uL Low 1.0-4.3 [facility] Comment on above: Performed By: #### L DH3, ICA, HEMDF, BMP3M, LFT3, CRP2, MG3, FERR3, PHOS3, DDI2 ####[address] Lymphocytes/100 WBC (Bld) 8.0 % Low 20.0-40.0 [facility] Comment on above: Performed By: #### L DH3, ICA, HEMDF, BMP3M, LFT3, CRP2, MG3, FERR3, PHOS3, DDI2 ####[address] MCH (RBC) [Entitic mass] 22.2 pg Low 26.0-34.0 [facility] Comment on above: Performed By: #### L DH3, ICA, HEMDF, BMP3M, LFT3, CRP2, MG3, FERR3, PHOS3, DDI2 ####[address] MCHC 31.4 % Low 32.0-36.0 [facility] Comment on above: Performed By: #### L DH3, ICA, HEMDF, BMP3M, LFT3, CRP2, MG3, FERR3, PHOS3, DDI2 ####[address] MCV (RBC) [Entitic vol] 70.7 fL Low 79.0-98.0 [facility] Comment on above: Performed By: #### L DH3, ICA, HEMDF, BMP3M, LFT3, CRP2, MG3, FERR3, PHOS3, DDI2 ####[id number] [place], [place] Monocytes (Bld) [#/Vol] 0.9 10*3/uL High 0.0-0.8 [facility] Comment on above: Performed By: #### L DH3, ICA, HEMDF, BMP3M, LFT3, CRP2, MG3, FERR3, PHOS3, DDI2 ####[address] Monocytes/100 WBC (Bld) 9.1 % Normal 2.0-10.0 [facility] Comment on above: Performed By: #### L DH3, ICA, HEMDF, BMP3M, LFT3, CRP2, MG3, FERR3, PHOS3, DDI2 ####[address] Platelet mean volume (Bld) [Entitic vol] 8.6 fL Normal 7.4-10.4 [facility] Comment on above: Performed By: #### L DH3, ICA, HEMDF, BMP3M, LFT3, CRP2, MG3, FERR3, PHOS3, DDI2 ####[id number] [place], [place] Platelets (Bld) [#/Vol] 227 10*3/uL Normal 140-440 [facility] Comment on above: Performed By: #### L DH3, ICA, HEMDF, BMP3M, LFT3, CRP2, MG3, FERR3, PHOS3, DDI2 ####[id number] [place] RBC (Bld) [#/Vol] 4.73 10*6/uL Normal 3.80-5.20 [facility] Comment on above: Performed By: #### L DH3, ICA, HEMDF, BMP3M, LFT3, CRP2, MG3, FERR3, PHOS3, DDI2 ####[facility] [employer] [id number] [place] WBC (Bld) [#/Vol] 10.2 10*3/uL Normal 3.6-10.7 [facility] Comment on above: Performed By: #### L DH3, ICA, HEMDF, BMP3M, LFT3, CRP2, MG3, FERR3, PHOS3, DDI2 ####[id number] [place], [place] Hepatic Functionon 1 ALP [Catalytic activity/Vol] 80 U/L Normal 38-126 [facility] Comment on above: Performed By: #### L DH3, ICA, HEMDF, BMP3M, LFT3, CRP2, MG3, FERR3, PHOS3, DDI2 ####[id number] [place] ALT [Catalytic activity/Vol] 105 U/L High 0-34 [facility] Comment on above: Result Comment: The ALT test is performed by an updated assay method.Please note that the reference intervals have beenchanged and are now sex specific. Performed By: #### L DH3, ICA, HEMDF, BMP3M, LFT3, CRP2, MG3, FERR3, PHOS3, DDI2 ####[address] AST [Catalytic activity/Vol] 56 U/L High 15-46 [facility] Comment on above: Performed By: #### L DH3, ICA, HEMDF, BMP3M, LFT3, CRP2, MG3, FERR3, PHOS3, DDI2 ####[address] Bilirubin [Mass/Vol] 0.5 mg/dL Normal 0.2-1.3 [facility] Comment on above: Performed By: #### L DH3, ICA, HEMDF, BMP3M, LFT3, CRP2, MG3, FERR3, PHOS3, DDI2 ####[address] Bilirubin.indirect [Mass/Vol] 0.0 mg/dL Normal 0.0-0.3 [facility] Comment on above: Performed By: #### L DH3, ICA, HEMDF, BMP3M, LFT3, CRP2, MG3, FERR3, PHOS3, DDI2 ####[address] Protein [Mass/Vol] 6.3 g/dL Normal 6.3-8.2 [facility] Comment on above: Performed By: #### L DH3, ICA, HEMDF, BMP3M, LFT3, CRP2, MG3, FERR3, PHOS3, DDI2 ####[address] Albumin [Mass/Vol] 3.2 g/dL Low 3.5-5.0 [facility] Comment on above: Performed By: #### L DH3, ICA, HEMDF, BMP3M, LFT3, CRP2, MG3, FERR3, PHOS3, DDI2 ####[address] [place] [address] LDHon 06-09-2021 LDH 298 U/L High 120-246 [facility] Comment on above: Performed By: #### L DH3, ICA, HEMDF, BMP3M, LFT3, CRP2, MG3, FERR3, PHOS3, DDI2 ####[id number] [place], [place] Magnesiumon 06-09-2021 Magnesium [Mass/Vol] 2.7 mg/dL High 1.6-2.3 [facility] Comment on above: Performed By: #### L DH3, ICA, HEMDF, BMP3M, LFT3, CRP2, MG3, FERR3, PHOS3, DDI2 ####[address] [place], [place] Phosphoruson 06-09-2021 Phosphate [Mass/Vol] 3.7 mg/dL Normal 2.5-4.5 [facility] Comment on above: Performed By: #### L DH3, ICA, HEMDF, BMP3M, LFT3, CRP2, MG3, FERR3, PHOS3, DDI2 ####[address] [place], [place] Add on test from HISon 06-08 Add on test from [facility] Accepted Normal [facility] Comment on above: Result Comment: Spec imen available & acceptable for analysis.Added to order- [id number] Performed By: #### A DDON ####[address] [place], [place] Arterial Blood Gaseson 06-08 CO2 [Moles/Vol] 33.3 mmol/L High 23.0-27.0 [facility] Comment on above: Performed By: #### A BG ####[address] [place] HCO3 (Bld) [Moles/Vol] 31.7 mmol/L High 21.0-25.0 [facility] Comment on above: Performed By: #### A BG ####[address] [place] Hemoglobin (Bld) [Mass/Vol] 11.2 g/dL Normal ScreenOnly [facility] Comment on above: Performed By: #### A BG ####[id number] [place] Oxygen (Bld) [Partial pressure] 116.1 mm[Hg] High 80.0-100.0 [facility] Comment on above: Performed By: #### A BG ####[address] Oxygen saturation in Blood 97.5 % Normal 95.0-100.0 [facility] Comment on above: Performed By: #### A BG ####[address] pCO2 50.5 mm[Hg] High 35.0-45.0 [facility] Comment on above: Performed By: #### A BG ####[address] pH 7.416 Normal 7.350-7.450 [facility] Comment on above: Performed By: #### A BG ####[address] Std Base Excess 6.2 mmol/L High -3.0-3.0 [facility] Comment on above: Performed By: #### A BG ####[address] FIO2 45% Normal [facility] Comment on above: Performed By: #### A BG ####[address] CO2 [Moles/Vol] 32.7 mmol/L High 23.0-27.0 [facility] Comment on above: Performed By: #### A BG ####[address] HCO3 (Bld) [Moles/Vol] 31.3 mmol/L High 21.0-25.0 [facility] Comment on above: Performed By: #### A BG ####[id number] [place] Hemoglobin (Bld) [Mass/Vol] 11.2 g/dL Normal ScreenOnly [facility] Comment on above: Performed By: #### A BG ####[id number] [place] Oxygen (Bld) [Partial pressure] 92.6 mm[Hg] Normal 80.0-100.0 [facility] Comment on above: Performed By: #### A BG ####[id number] [place] Oxygen saturation in Blood 96.2 % Normal 95.0-100.0 [facility] Comment on above: Performed By: #### A BG ####[address] [place] pCO2 48.5 mm[Hg] High 35.0-45.0 [facility] Comment on above: Performed By: #### A BG ####[address] [place], [place] pH 7.427 Normal 7.350-7.450 [facility] Comment on above: Performed By: #### A BG ####[address] [place] Std Base Excess 6.0 mmol/L High -3.0-3.0 [facility] Comment on above: Performed By: #### A BG ####[address] [place] FIO2 35% Normal [facility] Comment on above: Performed By: #### A BG ####[address] [place] CO2 [Moles/Vol] 30.4 mmol/L High 23.0-27.0 [facility] Comment on above: Performed By: #### A BG ####[id number] [place] HCO3 (Bld) [Moles/Vol] 29.0 mmol/L High 21.0-25.0 [facility] Comment on above: Performed By: #### A BG ####[id number] [place], [place] Hemoglobin (Bld) [Mass/Vol] 13.3 g/dL Normal ScreenOnly [facility] Comment on above: Performed By: #### A BG ####[id number] [place], [place] Oxygen (Bld) [Partial pressure] 64.4 mm[Hg] Low 80.0-100.0 [facility] Comment on above: Performed By: #### A BG ####[address] Oxygen saturation in Blood 90.9 % Low 95.0-100.0 [facility] Comment on above: Performed By: #### A BG ####[address] pCO2 47.6 mm[Hg] High 35.0-45.0 [facility] Comment on above: Performed By: #### A BG ####[address] pH 7.402 Normal 7.350-7.450 [facility] Comment on above: Performed By: #### A BG ####[address] Std Base Excess 3.4 mmol/L High -3.0-3.0 [facility] Comment on above: Performed By: #### A BG ####[address] FIO2 No data Normal [facility] Comment on above: Performed By: #### A BG ####[address] CO2 [Moles/Vol] 31.7 mmol/L High 23.0-27.0 [facility] Comment on above: Performed By: #### A BG ####[address] HCO3 (Bld) [Moles/Vol] 30.3 mmol/L High 21.0-25.0 [facility] Comment on above: Performed By: #### A BG ####[id number] [place], [place] Hemoglobin (Bld) [Mass/Vol] 10.6 g/dL Normal ScreenOnly [facility] Comment on above: Performed By: #### A BG ####[address] [place] Oxygen (Bld) [Partial pressure] 79.8 mm[Hg] Low 80.0-100.0 [facility] Comment on above: Performed By: #### A BG ####[id number] [place], [place] Oxygen saturation in Blood 94.3 % Low 95.0-100.0 [facility] Comment on above: Performed By: #### A BG ####[address] pCO2 45.7 mm[Hg] High 35.0-45.0 [facility] Comment on above: Performed By: #### A BG ####[address] pH 7.439 Normal 7.350-7.450 [facility] Comment on above: Performed By: #### A BG ####[address] Std Base Excess 5.4 mmol/L High -3.0-3.0 [facility] Comment on above: Performed By: #### A BG ####[address] FIO2 No data Normal [facility] Comment on above: Performed By: #### A BG ####[address] Basic Metabolic Panelon 07-1 -2020 Calcium [Mass/Vol] 8.1 mg/dL Low 8.4-10.4 [facility] Comment on above: Performed By: #### L FT3, FERR3, HEMDF, DDI2, ICA, LDH3, BMP3M, MG3, CRP2, PHOS3 ####[address] Glucose [Mass/Vol] 123 mg/dL High 70-100 [facility] Comment on above: Performed By: #### L FT3, FERR3, HEMDF, DDI2, ICA, LDH3, BMP3M, MG3, CRP2, PHOS3 ####[address] [place] Anion gap [Moles/Vol] 4 mmol/L Normal 3-13 [facility] Comment on above: Performed By: #### L FT3, FERR3, HEMDF, DDI2, ICA, LDH3, BMP3M, MG3, CRP2, PHOS3 ####[address] CO2 [Moles/Vol] 30 mmol/L Normal 22-30 [facility] Comment on above: Performed By: #### L FT3, FERR3, HEMDF, DDI2, ICA, LDH3, BMP3M, MG3, CRP2, PHOS3 ####[address] Urea nitrogen [Mass/Vol] 64 mg/dL High 7-20 [facility] Comment on above: Performed By: #### L FT3, FERR3, HEMDF, DDI2, ICA, LDH3, BMP3M, MG3, CRP2, PHOS3 ####[address] Creatinine [Mass/Vol] 1.04 mg/dL Normal 0.52-1.25 [facility] Comment on above: Performed By: #### L FT3, FERR3, HEMDF, DDI2, ICA, LDH3, BMP3M, MG3, CRP2, PHOS3 ####[address] GFR/1.73 sq M.predicted among blacks MDRD (S/P/Bld) [Vol rate/Area] 70.9 mL/min/{1.73_m2} Normal >60 [facility] Comment on above: Performed By: #### L FT3, FERR3, HEMDF, DDI2, ICA, LDH3, BMP3M, MG3, CRP2, PHOS3 ####[facility] [id number] [place] GFR/1.73 sq M.predicted among non-blacks MDRD (S/P/Bld) [Vol rate/Area] 61.2 mL/min/{1.73_m2} Normal >60 [facility] Comment on above: Result Comment: KDIG O guidelines provide the following GFR categories:Stage GFR(ml/min/1.73 m2) TermsG1 >=90 Normal or highG2 60-89 Mildly decreased*G3a 45-59 Mildly to moderately [id number] 30-44 Moderately to severely decreasedG4 15-29 Severely decreasedG5 <15 Kidney failure*Relative to young adult level.In the absence of evidence of kidney damage, neither GFRcategory G1 nor G2 fulfill the criteria for CKD.The CKD-EPI equation is validated in individuals 18 yearsof age and older. Currently the best equation forestimating glomerular filtration rate (GFR) from serumcreatinine in children is the Bedside Arechiga equation.It is less accurate in patients with extremes of musclemass, restriction of dietary protein, ingestion of creatine,extra-renal metabolism of creatinine, or treatment withmedications that affect renal tubular creatinine secretion. Performed By: #### L FT3, FERR3, HEMDF, DDI2, ICA, LDH3, BMP3M, MG3, CRP2, PHOS3 ####[employer] [id number] [place], [place] Potassium [Moles/Vol] 4.5 mmol/L Normal 3.5-5.1 [facility] Comment on above: Performed By: #### L FT3, FERR3, HEMDF, DDI2, ICA, LDH3, BMP3M, MG3, CRP2, PHOS3 ####[facility] [employer] [id number] [place], [place] Sodium [Moles/Vol] 142 mmol/L Normal 135-145 [facility] Comment on above: Performed By: #### L FT3, FERR3, HEMDF, DDI2, ICA, LDH3, BMP3M, MG3, CRP2, PHOS3 ####[id number] [place] [address] Chloride [Moles/Vol] 107 mmol/L Normal 98-107 [facility] Comment on above: Performed By: #### L FT3, FERR3, HEMDF, DDI2, ICA, LDH3, BMP3M, MG3, CRP2, PHOS3 ####[id number] [place] [address] C-Reactive Proteinon 021 CRP [Mass/Vol] 19.8 mg/L High 0.0-6.0 [facility] Comment on above: Result Comment: . Performed By: #### L FT3, FERR3, HEMDF, DDI2, ICA, LDH3, BMP3M, MG3, CRP2, PHOS3 ####[address] [address] CR Chest Portableon 06-08-20 CR Chest Portable Normal [facility] Calcium,Ionizedon 06-08-2021 Ionized Ca,Measured 4.30 mg/dL Normal 4.30-5.20 [facility] Comment on above: Performed By: #### L FT3, FERR3, HEMDF, DDI2, ICA, LDH3, BMP3M, MG3, CRP2, PHOS3 ####[address] [address] pH, Ionized Calcium 7.43 Normal 7.31-7.46 [facility] Comment on above: Performed By: #### L FT3, FERR3, HEMDF, DDI2, ICA, LDH3, BMP3M, MG3, CRP2, PHOS3 ####[address] [address] D-Dimer, Innovanceon 021 D-Dimer, [employer] 25.13 mg/L High <0.19-0.50 [facility] Comment on above: Result Comment: Inno carringtno D-Dimer values of <0.50 mg/L FEU can be used incombination with a pre-test probability model (e.g. Well's)to exclude pulmonary embolism (PE) disease, as well as jodi in the diagnosis of deep vein thrombosis (DVT). Performed By: #### L FT3, FERR3, HEMDF, DDI2, ICA, LDH3, BMP3M, MG3, CRP2, PHOS3 ####[employer] [id number] [place] [address] Ferritinon 06-08-2021 Ferritin [Mass/Vol] 72 ng/mL Normal 8-252 [facility] Comment on above: Performed By: #### L FT3, FERR3, HEMDF, DDI2, ICA, LDH3, BMP3M, MG3, CRP2, PHOS3 ####[facility] [employer] [id number] [place] [address] Glucose,Bedsideon 06-08-2021 Glucose [Mass/Vol] 165 mg/dL High 70-100 [facility] Comment on above: Result Comment: Test performed by glucose meter. Results may be 10%-15% lowerthan serum/plasma values. (CLIA ID [id number]) Performed By: #### B GLU ####[employer] [address] [place] [address] Glucose [Mass/Vol] 155 mg/dL High 70-100 [facility] Comment on above: Result Comment: Test performed by glucose meter. Results may be 10%-15% lowerthan serum/plasma values. (CLIA ID [id number]) Performed By: #### B GLU ####[id number] [place] [address] Glucose [Mass/Vol] 122 mg/dL High 70-100 [facility] Comment on above: Result Comment: Test performed by glucose meter. Results may be 10%-15% lowerthan serum/plasma values. (CLIA ID [id number]) Performed By: #### B GLU ####[employer] [id number] [place] [address] Glucose [Mass/Vol] 130 mg/dL High 70-100 [facility] Comment on above: Result Comment: Test performed by glucose meter. Results may be 10%-15% lowerthan serum/plasma values. (CLIA ID [id number]) Performed By: #### B GLU ####[address] Hemogram w/ Autodiffon 06-08 Abs Baso Cnt 0.0 10*3/uL Normal 0.0-0.2 [facility] Comment on above: Performed By: #### L FT3, FERR3, HEMDF, DDI2, ICA, LDH3, BMP3M, MG3, CRP2, PHOS3 ####[address] Abs Neutrophile Cnt 5.7 10*3/uL Normal 1.8-7.0 [facility] Comment on above: Performed By: #### L FT3, FERR3, HEMDF, DDI2, ICA, LDH3, BMP3M, MG3, CRP2, PHOS3 ####[address] Basophils/100 WBC (Bld) 0.1 % Normal 0.0-2.0 [facility] Comment on above: Performed By: #### L FT3, FERR3, HEMDF, DDI2, ICA, LDH3, BMP3M, MG3, CRP2, PHOS3 ####[address] Eosinophils (Bld) [#/Vol] 0.0 10*3/uL Normal 0.0-0.5 [facility] Comment on above: Performed By: #### L FT3, FERR3, HEMDF, DDI2, ICA, LDH3, BMP3M, MG3, CRP2, PHOS3 ####[address] Eosinophils/100 WBC (Bld) 0.5 % Low 1.0-6.0 [facility] Comment on above: Performed By: #### L FT3, FERR3, HEMDF, DDI2, ICA, LDH3, BMP3M, MG3, CRP2, PHOS3 ####[address] Erythrocyte distribution width (RBC) [Ratio] 20.1 % High 11.5-14.5 [facility] Comment on above: Performed By: #### L FT3, FERR3, HEMDF, DDI2, ICA, LDH3, BMP3M, MG3, CRP2, PHOS3 ####[address] Granulocytes/100 WBC (Bld) 81.8 % High 40.0-80.0 [facility] Comment on above: Performed By: #### L FT3, FERR3, HEMDF, DDI2, ICA, LDH3, BMP3M, MG3, CRP2, PHOS3 ####[address] Hematocrit (Bld) [Volume fraction] 31.8 % Low 35.0-47.0 [facility] Comment on above: Performed By: #### L FT3, FERR3, HEMDF, DDI2, ICA, LDH3, BMP3M, MG3, CRP2, PHOS3 ####[address] Hemoglobin (Bld) [Mass/Vol] 10.0 g/dL Low 11.7-16.0 [facility] Comment on above: Performed By: #### L FT3, FERR3, HEMDF, DDI2, ICA, LDH3, BMP3M, MG3, CRP2, PHOS3 ####[address] Lymphocytes (Bld) [#/Vol] 0.7 10*3/uL Low 1.0-4.3 [facility] Comment on above: Performed By: #### L FT3, FERR3, HEMDF, DDI2, ICA, LDH3, BMP3M, MG3, CRP2, PHOS3 ####[address] Lymphocytes/100 WBC (Bld) 9.6 % Low 20.0-40.0 [facility] Comment on above: Performed By: #### L FT3, FERR3, HEMDF, DDI2, ICA, LDH3, BMP3M, MG3, CRP2, PHOS3 ####[address] MCH (RBC) [Entitic mass] 22.0 pg Low 26.0-34.0 [facility] Comment on above: Performed By: #### L FT3, FERR3, HEMDF, DDI2, ICA, LDH3, BMP3M, MG3, CRP2, PHOS3 ####[address] MCHC 31.5 % Low 32.0-36.0 [facility] Comment on above: Performed By: #### L FT3, FERR3, HEMDF, DDI2, ICA, LDH3, BMP3M, MG3, CRP2, PHOS3 ####[address] MCV (RBC) [Entitic vol] 69.9 fL Low 79.0-98.0 [facility] Comment on above: Performed By: #### L FT3, FERR3, HEMDF, DDI2, ICA, LDH3, BMP3M, MG3, CRP2, PHOS3 ####[address] Monocytes (Bld) [#/Vol] 0.6 10*3/uL Normal 0.0-0.8 [facility] Comment on above: Performed By: #### L FT3, FERR3, HEMDF, DDI2, ICA, LDH3, BMP3M, MG3, CRP2, PHOS3 ####[address] Monocytes/100 WBC (Bld) 8.0 % Normal 2.0-10.0 [facility] Comment on above: Performed By: #### L FT3, FERR3, HEMDF, DDI2, ICA, LDH3, BMP3M, MG3, CRP2, PHOS3 ####[address] Platelet mean volume (Bld) [Entitic vol] 8.2 fL Normal 7.4-10.4 [facility] Comment on above: Performed By: #### L FT3, FERR3, HEMDF, DDI2, ICA, LDH3, BMP3M, MG3, CRP2, PHOS3 ####[address] Platelets (Bld) [#/Vol] 213 10*3/uL Normal 140-440 [facility] Comment on above: Performed By: #### L FT3, FERR3, HEMDF, DDI2, ICA, LDH3, BMP3M, MG3, CRP2, PHOS3 ####[address] RBC (Bld) [#/Vol] 4.55 10*6/uL Normal 3.80-5.20 [facility] Comment on above: Performed By: #### L FT3, FERR3, HEMDF, DDI2, ICA, LDH3, BMP3M, MG3, CRP2, PHOS3 ####[address] WBC (Bld) [#/Vol] 7.0 10*3/uL Normal 3.6-10.7 [facility] Comment on above: Performed By: #### L FT3, FERR3, HEMDF, DDI2, ICA, LDH3, BMP3M, MG3, CRP2, PHOS3 ####[address] Hepatic Functionon 1 ALT [Catalytic activity/Vol] 126 U/L High 0-34 [facility] Comment on above: Result Comment: The ALT test is performed by an updated assay method.Please note that the reference intervals have beenchanged and are now sex specific. Performed By: #### L FT3, FERR3, HEMDF, DDI2, ICA, LDH3, BMP3M, MG3, CRP2, PHOS3 ####[id number] [place], [place] ALP [Catalytic activity/Vol] 75 U/L Normal 38-126 [facility] Comment on above: Performed By: #### L FT3, FERR3, HEMDF, DDI2, ICA, LDH3, BMP3M, MG3, CRP2, PHOS3 ####[id number] [place], [place] AST [Catalytic activity/Vol] 86 U/L High 15-46 [facility] Comment on above: Performed By: #### L FT3, FERR3, HEMDF, DDI2, ICA, LDH3, BMP3M, MG3, CRP2, PHOS3 ####[address] Bilirubin [Mass/Vol] 0.3 mg/dL Normal 0.2-1.3 [facility] Comment on above: Performed By: #### L FT3, FERR3, HEMDF, DDI2, ICA, LDH3, BMP3M, MG3, CRP2, PHOS3 ####[address] [address] [place], [place] Bilirubin.indirect [Mass/Vol] 0.0 mg/dL Normal 0.0-0.3 [facility] Comment on above: Performed By: #### L FT3, FERR3, HEMDF, DDI2, ICA, LDH3, BMP3M, MG3, CRP2, PHOS3 ####[address] [address] [place] Protein [Mass/Vol] 5.9 g/dL Low 6.3-8.2 [facility] Comment on above: Performed By: #### L FT3, FERR3, HEMDF, DDI2, ICA, LDH3, BMP3M, MG3, CRP2, PHOS3 ####[id number] [place], [place] Albumin [Mass/Vol] 2.9 g/dL Low 3.5-5.0 [facility] Comment on above: Performed By: #### L FT3, FERR3, HEMDF, DDI2, ICA, LDH3, BMP3M, MG3, CRP2, PHOS3 ####[address] LDHon 06-08-2021 LDH 291 U/L High 120-246 [facility] Comment on above: Performed By: #### L FT3, FERR3, HEMDF, DDI2, ICA, LDH3, BMP3M, MG3, CRP2, PHOS3 ####[address] Magnesiumon 06-08-2021 Magnesium [Mass/Vol] 2.4 mg/dL High 1.6-2.3 [facility] Comment on above: Performed By: #### L FT3, FERR3, HEMDF, DDI2, ICA, LDH3, BMP3M, MG3, CRP2, PHOS3 ####[address] Phosphoruson 06-08-2021 Phosphate [Mass/Vol] 4.3 mg/dL Normal 2.5-4.5 [facility] Comment on above: Performed By: #### L FT3, FERR3, HEMDF, DDI2, ICA, LDH3, BMP3M, MG3, CRP2, PHOS3 ####[address] Procalcitoninon 06-08-2021 Procalcitonin 0.06 ng/mL Normal 0.00-0.09 [facility] Comment on above: Performed By: #### P OLESYA ####[address] Interpretation See Below Normal [facility] Comment on above: Result Comment: PCT <0.50 = Low risk of severe sepsis and/or septic shock.PCT >2.00 = High risk of severe sepsis and/or septic shock. Performed By: #### P OLESYA ####[address] Procalcitonin 0.07 ng/mL Normal 0.00-0.09 [facility] Comment on above: Performed By: #### D DI2, MG3, HEMDF, PHOS3, ICA, BMP3M, CRP2, LDH3, LFT3, FERR3, PCAL ####[id number] [place], [place] Interpretation See Below Normal [facility] Comment on above: Result Comment: PCT <0.50 = Low risk of severe sepsis and/or septic shock.PCT >2.00 = High risk of severe sepsis and/or septic shock. Performed By: #### D DI2, MG3, HEMDF, PHOS3, ICA, BMP3M, CRP2, LDH3, LFT3, FERR3, PCAL ####[address] STAIN GRAMon 06-08-2021 STAIN GRAM STAIN GRAM --> Statu s: F Many polymorphonuclear cells/lpf. No epithelial cells/lpf. Few yeast. No epithelial cells/lpf. Few yeast. Normal [facility] Comment on above: Performed By: #### C S/RE, S/GRM ####[address] [address] [place], [place] VL Venous Duplex US Lower Ex t Bilateralon 06-08-2021 VL Venous Duplex US Lower Ext Bilateral Normal [facility] Arterial Blood Gaseson 06-07 CO2 [Moles/Vol] 32.6 mmol/L High 23.0-27.0 [facility] Comment on above: Performed By: #### A BG ####[id number] [place], [place] HCO3 (Bld) [Moles/Vol] 31.1 mmol/L High 21.0-25.0 [facility] Comment on above: Performed By: #### A BG ####[id number] [place], [place] Hemoglobin (Bld) [Mass/Vol] 11.1 g/dL Normal ScreenOnly [facility] Comment on above: Performed By: #### A BG ####[address] Oxygen (Bld) [Partial pressure] 72.8 mm[Hg] Low 80.0-100.0 [facility] Comment on above: Performed By: #### A BG ####[id number] [place], [place] Oxygen saturation in Blood 93.2 % Low 95.0-100.0 [facility] Comment on above: Performed By: #### A BG ####[id number] [place], [place] pCO2 47.1 mm[Hg] High 35.0-45.0 [facility] Comment on above: Performed By: #### A BG ####[id number] [place], [place] pH 7.438 Normal 7.350-7.450 [facility] Comment on above: Performed By: #### A BG ####[address] [address] [place], [place] Std Base Excess 6.1 mmol/L High -3.0-3.0 [facility] Comment on above: Performed By: #### A BG ####[id number] [place], [place] FIO2 No data Normal [facility] Comment on above: Performed By: #### A BG ####[address] [address] [place] CO2 [Moles/Vol] 32.1 mmol/L High 23.0-27.0 [facility] Comment on above: Performed By: #### A BG ####[id number] [place], [place] HCO3 (Bld) [Moles/Vol] 30.6 mmol/L High 21.0-25.0 [facility] Comment on above: Performed By: #### A BG ####[id number] [place], [place] Hemoglobin (Bld) [Mass/Vol] 11.2 g/dL Normal ScreenOnly [facility] Comment on above: Performed By: #### A BG ####[id number] [place], [place] Oxygen (Bld) [Partial pressure] 103.3 mm[Hg] High 80.0-100.0 [facility] Comment on above: Performed By: #### A BG ####[address] [address] [place], [place] Oxygen saturation in Blood 96.9 % Normal 95.0-100.0 [facility] Comment on above: Performed By: #### A BG ####[address] [address] [address] [place] pCO2 49.2 mm[Hg] High 35.0-45.0 [facility] Comment on above: Performed By: #### A BG ####[address] pH 7.411 Normal 7.350-7.450 [facility] Comment on above: Performed By: #### A BG ####[address] Std Base Excess 5.1 mmol/L High -3.0-3.0 [facility] Comment on above: Performed By: #### A BG ####[address] FIO2 35% Normal [facility] Comment on above: Performed By: #### A BG ####[address] [place] CO2 [Moles/Vol] 30.4 mmol/L High 23.0-27.0 [facility] Comment on above: Performed By: #### A BG ####[address] [place] HCO3 (Bld) [Moles/Vol] 28.9 mmol/L High 21.0-25.0 [facility] Comment on above: Performed By: #### A BG ####[address] Hemoglobin (Bld) [Mass/Vol] 11.0 g/dL Normal ScreenOnly [facility] Comment on above: Performed By: #### A BG ####[id number] [place], [place] Oxygen (Bld) [Partial pressure] 98.0 mm[Hg] Normal 80.0-100.0 [facility] Comment on above: Performed By: #### A BG ####[id number] [place], [place] Oxygen saturation in Blood 97.0 % Normal 95.0-100.0 [facility] Comment on above: Performed By: #### A BG ####[id number] [place] pCO2 51.3 mm[Hg] High 35.0-45.0 [facility] Comment on above: Performed By: #### A BG ####[address] pH 7.368 Normal 7.350-7.450 [facility] Comment on above: Performed By: #### A BG ####[address] [address] [address] [place], [place] Std Base Excess 2.8 mmol/L Normal -3.0-3.0 [facility] Comment on above: Performed By: #### A BG ####[address] FIO2 No data Normal [facility] Comment on above: Performed By: #### A BG ####[address] [address] [address] [place] CO2 [Moles/Vol] 30.2 mmol/L High 23.0-27.0 [facility] Comment on above: Performed By: #### A BG ####[id number] [place], [place] HCO3 (Bld) [Moles/Vol] 28.7 mmol/L High 21.0-25.0 [facility] Comment on above: Performed By: #### A BG ####[address] [place] Hemoglobin (Bld) [Mass/Vol] 10.8 g/dL Normal ScreenOnly [facility] Comment on above: Performed By: #### A BG ####[id number] [place], [place] Oxygen (Bld) [Partial pressure] 112.4 mm[Hg] High 80.0-100.0 [facility] Comment on above: Performed By: #### A BG ####[address] Oxygen saturation in Blood 97.5 % Normal 95.0-100.0 [facility] Comment on above: Performed By: #### A BG ####[id number] [place], [place] pCO2 47.0 mm[Hg] High 35.0-45.0 [facility] Comment on above: Performed By: #### A BG ####[address] pH 7.404 Normal 7.350-7.450 [facility] Comment on above: Performed By: #### A BG ####[address] Std Base Excess 3.4 mmol/L High -3.0-3.0 [facility] Comment on above: Performed By: #### A BG ####[id number] [place], [place] FIO2 No data Normal [facility] Comment on above: Performed By: #### A BG ####[address] Basic Metabolic Panelon 07-0 Calcium [Mass/Vol] 8.2 mg/dL Low 8.4-10.4 [facility] Comment on above: Performed By: #### D DI2, MG3, HEMDF, PHOS3, ICA, BMP3M, CRP2, LDH3, LFT3, FERR3, PCAL ####[id number] [place], [place] Glucose [Mass/Vol] 109 mg/dL High 70-100 [facility] Comment on above: Performed By: #### D DI2, MG3, HEMDF, PHOS3, ICA, BMP3M, CRP2, LDH3, LFT3, FERR3, PCAL ####[id number] [place] Urea nitrogen [Mass/Vol] 53 mg/dL High 7-20 [facility] Comment on above: Performed By: #### D DI2, MG3, HEMDF, PHOS3, ICA, BMP3M, CRP2, LDH3, LFT3, FERR3, PCAL ####[id number] [place] Anion gap [Moles/Vol] 5 mmol/L Normal 3-13 [facility] Comment on above: Performed By: #### D DI2, MG3, HEMDF, PHOS3, ICA, BMP3M, CRP2, LDH3, LFT3, FERR3, PCAL ####[address] CO2 [Moles/Vol] 28 mmol/L Normal 22-30 [facility] Comment on above: Performed By: #### D DI2, MG3, HEMDF, PHOS3, ICA, BMP3M, CRP2, LDH3, LFT3, FERR3, PCAL ####[id number] [place], [place] Creatinine [Mass/Vol] 0.95 mg/dL Normal 0.52-1.25 [facility] Comment on above: Performed By: #### D DI2, MG3, HEMDF, PHOS3, ICA, BMP3M, CRP2, LDH3, LFT3, FERR3, PCAL ####[id number] [place], [place] GFR/1.73 sq M.predicted among blacks MDRD (S/P/Bld) [Vol rate/Area] 79.1 mL/min/{1.73_m2} Normal >60 [facility] Comment on above: Performed By: #### D DI2, MG3, HEMDF, PHOS3, ICA, BMP3M, CRP2, LDH3, LFT3, FERR3, PCAL ####[id number] [place], [place] GFR/1.73 sq M.predicted among non-blacks MDRD (S/P/Bld) [Vol rate/Area] 68.2 mL/min/{1.73_m2} Normal >60 [facility] Comment on above: Result Comment: KDIG O guidelines provide the following GFR categories:Stage GFR(ml/min/1.73 m2) TermsG1 >=90 Normal or highG2 60-89 Mildly decreased*G3a 45-59 Mildly to moderately [id number] 30-44 Moderately to severely decreasedG4 15-29 Severely decreasedG5 <15 Kidney failure*Relative to young adult level.In the absence of evidence of kidney damage, neither GFRcategory G1 nor G2 fulfill the criteria for CKD.The CKD-EPI equation is validated in individuals 18 yearsof age and older. Currently the best equation forestimating glomerular filtration rate (GFR) from serumcreatinine in children is the Bedside Arechiga equation.It is less accurate in patients with extremes of musclemass, restriction of dietary protein, ingestion of creatine,extra-renal metabolism of creatinine, or treatment withmedications that affect renal tubular creatinine secretion. Performed By: #### D DI2, MG3, HEMDF, PHOS3, ICA, BMP3M, CRP2, LDH3, LFT3, FERR3, PCAL ####[id number] [place], [place] Potassium [Moles/Vol] 4.4 mmol/L Normal 3.5-5.1 [facility] Comment on above: Performed By: #### D DI2, MG3, HEMDF, PHOS3, ICA, BMP3M, CRP2, LDH3, LFT3, FERR3, PCAL ####[id number] [place], [place] Chloride [Moles/Vol] 107 mmol/L Normal 98-107 [facility] Comment on above: Performed By: #### D DI2, MG3, HEMDF, PHOS3, ICA, BMP3M, CRP2, LDH3, LFT3, FERR3, PCAL ####[id number] [place], [place] Sodium [Moles/Vol] 140 mmol/L Normal 135-145 [facility] Comment on above: Performed By: #### D DI2, MG3, HEMDF, PHOS3, ICA, BMP3M, CRP2, LDH3, LFT3, FERR3, PCAL ####[id number] [place], [place] C-Reactive Proteinon 021 CRP [Mass/Vol] 29.6 mg/L High 0.0-6.0 [facility] Comment on above: Result Comment: . Performed By: #### D DI2, MG3, HEMDF, PHOS3, ICA, BMP3M, CRP2, LDH3, LFT3, FERR3, PCAL ####[id number] [place], [place] CR Chest Portableon 06-07-20 CR Chest Portable Normal [facility] Calcium,Ionizedon 06-07-2021 Ionized Ca,Measured 4.40 mg/dL Normal 4.30-5.20 [facility] Comment on above: Performed By: #### D DI2, MG3, HEMDF, PHOS3, ICA, BMP3M, CRP2, LDH3, LFT3, FERR3, PCAL ####[id number] [place], [place] pH, Ionized Calcium 7.39 Normal 7.31-7.46 [facility] Comment on above: Performed By: #### D DI2, MG3, HEMDF, PHOS3, ICA, BMP3M, CRP2, LDH3, LFT3, FERR3, PCAL ####[id number] [place], [place] D-Dimer, Innovanceon 021 D-Dimer, Innovance 26.90 mg/L High <0.19-0.50 [facility] Comment on above: Result Comment: Inno car[place] D-Dimer values of <0.50 mg/L FEU can be used incombination with a pre-test probability model (e.g. Well's)to exclude pulmonary embolism (PE) disease, as well as jodi in the diagnosis of deep vein thrombosis (DVT). Performed By: #### D DI2, MG3, HEMDF, PHOS3, ICA, BMP3M, CRP2, LDH3, LFT3, FERR3, PCAL ####[facility] [id number] [place] [address] Ferritinon 06-07-2021 Ferritin [Mass/Vol] 104 ng/mL Normal 8-252 [facility] Comment on above: Performed By: #### D DI2, MG3, HEMDF, PHOS3, ICA, BMP3M, CRP2, LDH3, LFT3, FERR3, PCAL ####[facility] [id number] [place] [address] Glucose,Bedsideon 06-07-2021 Glucose [Mass/Vol] 156 mg/dL High 70-100 [facility] Comment on above: Result Comment: Test performed by glucose meter. Results may be 10%-15% lowerthan serum/plasma values. (CLIA ID [id number]) Performed By: #### B GLU ####[facility] [id number] [place] [address] Glucose [Mass/Vol] 151 mg/dL High 70-100 [facility] Comment on above: Result Comment: Test performed by glucose meter. Results may be 10%-15% lowerthan serum/plasma values. (CLIA ID [id number]) Performed By: #### B GLU ####[facility] [id number] [place] [address] Glucose [Mass/Vol] 100 mg/dL Normal 70-100 [facility] Comment on above: Result Comment: Test performed by glucose meter. Results may be 10%-15% lowerthan serum/plasma values. (CLIA ID [id number]) Performed By: #### B GLU ####[facility] [id number] [place] [address] Glucose [Mass/Vol] 126 mg/dL High 70-100 [facility] Comment on above: Result Comment: Test performed by glucose meter. Results may be 10%-15% lowerthan serum/plasma values. (CLIA ID [id number]) Performed By: #### B GLU ####[address] Hemogram w/ Autodiffon 06-07 Abs Baso Cnt 0.0 10*3/uL Normal 0.0-0.2 [facility] Comment on above: Performed By: #### D DI2, MG3, HEMDF, PHOS3, ICA, BMP3M, CRP2, LDH3, LFT3, FERR3, PCAL ####[address] Abs Neutrophile Cnt 3.2 10*3/uL Normal 1.8-7.0 [facility] Comment on above: Performed By: #### D DI2, MG3, HEMDF, PHOS3, ICA, BMP3M, CRP2, LDH3, LFT3, FERR3, PCAL ####[address] Basophils/100 WBC (Bld) 0.5 % Normal 0.0-2.0 [facility] Comment on above: Performed By: #### D DI2, MG3, HEMDF, PHOS3, ICA, BMP3M, CRP2, LDH3, LFT3, FERR3, PCAL ####[address] Eosinophils (Bld) [#/Vol] 0.0 10*3/uL Normal 0.0-0.5 [facility] Comment on above: Performed By: #### D DI2, MG3, HEMDF, PHOS3, ICA, BMP3M, CRP2, LDH3, LFT3, FERR3, PCAL ####[address] Eosinophils/100 WBC (Bld) 0.5 % Low 1.0-6.0 [facility] Comment on above: Performed By: #### D DI2, MG3, HEMDF, PHOS3, ICA, BMP3M, CRP2, LDH3, LFT3, FERR3, PCAL ####[address] Erythrocyte distribution width (RBC) [Ratio] 21.1 % High 11.5-14.5 [facility] Comment on above: Performed By: #### D DI2, MG3, HEMDF, PHOS3, ICA, BMP3M, CRP2, LDH3, LFT3, FERR3, PCAL ####[address] Granulocytes/100 WBC (Bld) 72.5 % Normal 40.0-80.0 [facility] Comment on above: Performed By: #### D DI2, MG3, HEMDF, PHOS3, ICA, BMP3M, CRP2, LDH3, LFT3, FERR3, PCAL ####[address] Hematocrit (Bld) [Volume fraction] 33.3 % Low 35.0-47.0 [facility] Comment on above: Performed By: #### D DI2, MG3, HEMDF, PHOS3, ICA, BMP3M, CRP2, LDH3, LFT3, FERR3, PCAL ####[address] Hemoglobin (Bld) [Mass/Vol] 10.6 g/dL Low 11.7-16.0 [facility] Comment on above: Performed By: #### D DI2, MG3, HEMDF, PHOS3, ICA, BMP3M, CRP2, LDH3, LFT3, FERR3, PCAL ####[address] Lymphocytes (Bld) [#/Vol] 0.7 10*3/uL Low 1.0-4.3 [facility] Comment on above: Performed By: #### D DI2, MG3, HEMDF, PHOS3, ICA, BMP3M, CRP2, LDH3, LFT3, FERR3, PCAL ####[address] [place] Lymphocytes/100 WBC (Bld) 16.0 % Low 20.0-40.0 [facility] Comment on above: Performed By: #### D DI2, MG3, HEMDF, PHOS3, ICA, BMP3M, CRP2, LDH3, LFT3, FERR3, PCAL ####[id number] [place], [place] MCH (RBC) [Entitic mass] 22.6 pg Low 26.0-34.0 [facility] Comment on above: Performed By: #### D DI2, MG3, HEMDF, PHOS3, ICA, BMP3M, CRP2, LDH3, LFT3, FERR3, PCAL ####[id number] [place], [place] MCHC 31.7 % Low 32.0-36.0 [facility] Comment on above: Performed By: #### D DI2, MG3, HEMDF, PHOS3, ICA, BMP3M, CRP2, LDH3, LFT3, FERR3, PCAL ####[address] MCV (RBC) [Entitic vol] 71.3 fL Low 79.0-98.0 [facility] Comment on above: Performed By: #### D DI2, MG3, HEMDF, PHOS3, ICA, BMP3M, CRP2, LDH3, LFT3, FERR3, PCAL ####[address] Monocytes (Bld) [#/Vol] 0.5 10*3/uL Normal 0.0-0.8 [facility] Comment on above: Performed By: #### D DI2, MG3, HEMDF, PHOS3, ICA, BMP3M, CRP2, LDH3, LFT3, FERR3, PCAL ####[address] Monocytes/100 WBC (Bld) 10.5 % High 2.0-10.0 [facility] Comment on above: Performed By: #### D DI2, MG3, HEMDF, PHOS3, ICA, BMP3M, CRP2, LDH3, LFT3, FERR3, PCAL ####[id number] [place], [place] Platelet mean volume (Bld) [Entitic vol] 8.3 fL Normal 7.4-10.4 [facility] Comment on above: Performed By: #### D DI2, MG3, HEMDF, PHOS3, ICA, BMP3M, CRP2, LDH3, LFT3, FERR3, PCAL ####[id number] [place], [place] Platelets (Bld) [#/Vol] 194 10*3/uL Normal 140-440 [facility] Comment on above: Performed By: #### D DI2, MG3, HEMDF, PHOS3, ICA, BMP3M, CRP2, LDH3, LFT3, FERR3, PCAL ####[address] RBC (Bld) [#/Vol] 4.67 10*6/uL Normal 3.80-5.20 [facility] Comment on above: Performed By: #### D DI2, MG3, HEMDF, PHOS3, ICA, BMP3M, CRP2, LDH3, LFT3, FERR3, PCAL ####[address] WBC (Bld) [#/Vol] 4.5 10*3/uL Normal 3.6-10.7 [facility] Comment on above: Performed By: #### D DI2, MG3, HEMDF, PHOS3, ICA, BMP3M, CRP2, LDH3, LFT3, FERR3, PCAL ####[id number] [place], [place] Hepatic Functionon 1 ALP [Catalytic activity/Vol] 82 U/L Normal 38-126 [facility] Comment on above: Performed By: #### D DI2, MG3, HEMDF, PHOS3, ICA, BMP3M, CRP2, LDH3, LFT3, FERR3, PCAL ####[id number] [place], [place] ALT [Catalytic activity/Vol] 138 U/L High 0-34 [facility] Comment on above: Result Comment: The ALT test is performed by an updated assay method.Please note that the reference intervals have beenchanged and are now sex specific. Performed By: #### D DI2, MG3, HEMDF, PHOS3, ICA, BMP3M, CRP2, LDH3, LFT3, FERR3, PCAL ####[address] AST [Catalytic activity/Vol] 119 U/L High 15-46 [facility] Comment on above: Performed By: #### D DI2, MG3, HEMDF, PHOS3, ICA, BMP3M, CRP2, LDH3, LFT3, FERR3, PCAL ####[address] Protein [Mass/Vol] 6.0 g/dL Low 6.3-8.2 [facility] Comment on above: Performed By: #### D DI2, MG3, HEMDF, PHOS3, ICA, BMP3M, CRP2, LDH3, LFT3, FERR3, PCAL ####[address] Bilirubin [Mass/Vol] 0.3 mg/dL Normal 0.2-1.3 [facility] Comment on above: Performed By: #### D DI2, MG3, HEMDF, PHOS3, ICA, BMP3M, CRP2, LDH3, LFT3, FERR3, PCAL ####[id number] [place], [place] Bilirubin.indirect [Mass/Vol] 0.0 mg/dL Normal 0.0-0.3 [facility] Comment on above: Performed By: #### D DI2, MG3, HEMDF, PHOS3, ICA, BMP3M, CRP2, LDH3, LFT3, FERR3, PCAL ####[address] [place] Albumin [Mass/Vol] 2.9 g/dL Low 3.5-5.0 [facility] Comment on above: Performed By: #### D DI2, MG3, HEMDF, PHOS3, ICA, BMP3M, CRP2, LDH3, LFT3, FERR3, PCAL ####[id number] [place], [place] Interleukin 6on 06-07-2021 Interleukin 6 54.6 pg/mL High <=2.0 [facility] Comment on above: Result Comment: INTE RPRETIVE INFORMATION: CytokinesResults are used to understand the pathophysiology of immune,infectious, or inflammatory disorders, or may be used for researchpurposes.This test was developed and its performance characteristicsdetermined by [facility]. It has not been cleared orapproved by the [place] Food and Drug Administration. This test wasperformed in a CLIA certified laboratory and is intended forclinical purposes.Performed By: [facility] [place] [id number] Director: Merari Garcia MD Performed By: #### H BSAG, LFT3, HEMDF, HIV4, TROPN, MG3, BMP3M, DDI2, PHOS3, CRP2, HEPC, ICA, FERR3, LDH3 ####[address] #### [id number], HBCAO ####The performing lab is in the report. LDHon 06-07-2021 LDH 370 U/L High 120-246 [facility] Comment on above: Performed By: #### D DI2, MG3, HEMDF, PHOS3, ICA, BMP3M, CRP2, LDH3, LFT3, FERR3, PCAL ####[id number] [place], [place] Magnesiumon 06-07-2021 Magnesium [Mass/Vol] 2.5 mg/dL High 1.6-2.3 [facility] Comment on above: Performed By: #### D DI2, MG3, HEMDF, PHOS3, ICA, BMP3M, CRP2, LDH3, LFT3, FERR3, PCAL ####[id number] . [place] [address] Phosphoruson 06-07-2021 Phosphate [Mass/Vol] 4.0 mg/dL Normal 2.5-4.5 [facility] Comment on above: Performed By: #### D DI2, MG3, HEMDF, PHOS3, ICA, BMP3M, CRP2, LDH3, LFT3, FERR3, PCAL ####[id number] [place] [address] Troponin Ion 06-07-2021 Troponin I.cardiac [Mass/Vol] ng/mL Normal 0.000-0.034 [facility] Comment on above: Result Comment: . Performed By: #### T ROPN ####[address] [address] Arterial Blood Gaseson 06-06 CO2 [Moles/Vol] 29.3 mmol/L High 23.0-27.0 [facility] Comment on above: Performed By: #### A BG ####[address] [address] HCO3 (Bld) [Moles/Vol] 27.9 mmol/L High 21.0-25.0 [facility] Comment on above: Performed By: #### A BG ####[address] [address] [place] [address] Hemoglobin (Bld) [Mass/Vol] 10.7 g/dL Normal ScreenOnly [facility] Comment on above: Performed By: #### A BG ####[address] [address] Oxygen (Bld) [Partial pressure] 86.6 mm[Hg] Normal 80.0-100.0 [facility] Comment on above: Performed By: #### A BG ####[address] [address] Oxygen saturation in Blood 96.2 % Normal 95.0-100.0 [facility] Comment on above: Performed By: #### A BG ####[id number] [place] pCO2 46.9 mm[Hg] High 35.0-45.0 [facility] Comment on above: Performed By: #### A BG ####[id number] [place], [place] pH 7.392 Normal 7.350-7.450 [facility] Comment on above: Performed By: #### A BG ####[id number] [place] Std Base Excess 2.5 mmol/L Normal -3.0-3.0 [facility] Comment on above: Performed By: #### A BG ####[id number] [place] FIO2 .50 Normal [facility] Comment on above: Performed By: #### A BG ####[address] [place] CO2 [Moles/Vol] 28.2 mmol/L High 23.0-27.0 [facility] Comment on above: Performed By: #### A BG ####[id number] [place] HCO3 (Bld) [Moles/Vol] 26.8 mmol/L High 21.0-25.0 [facility] Comment on above: Performed By: #### A BG ####[id number] [place] Hemoglobin (Bld) [Mass/Vol] 11.1 g/dL Normal ScreenOnly [facility] Comment on above: Performed By: #### A BG ####[id number] [place] Oxygen (Bld) [Partial pressure] 68.7 mm[Hg] Low 80.0-100.0 [facility] Comment on above: Performed By: #### A BG ####[id number] [place], [place] Oxygen saturation in Blood 92.0 % Low 95.0-100.0 [facility] Comment on above: Performed By: #### A BG ####[id number] [place] pCO2 46.7 mm[Hg] High 35.0-45.0 [facility] Comment on above: Performed By: #### A BG ####[id number] [place] pH 7.376 Normal 7.350-7.450 [facility] Comment on above: Performed By: #### A BG ####[address] [place] Std Base Excess 1.2 mmol/L Normal -3.0-3.0 [facility] Comment on above: Performed By: #### A BG ####[address] [address] [place] FIO2 .50 Normal [facility] Comment on above: Performed By: #### A BG ####[address] [place] CO2 [Moles/Vol] 30.7 mmol/L High 23.0-27.0 [facility] Comment on above: Performed By: #### A BG ####[id number] [place] HCO3 (Bld) [Moles/Vol] 29.2 mmol/L High 21.0-25.0 [facility] Comment on above: Performed By: #### A BG ####[address] [place] Hemoglobin (Bld) [Mass/Vol] 11.5 g/dL Normal ScreenOnly [facility] Comment on above: Performed By: #### A BG ####[address] [place] Oxygen (Bld) [Partial pressure] 130.0 mm[Hg] High 80.0-100.0 [facility] Comment on above: Performed By: #### A BG ####[address] [place] Oxygen saturation in Blood 98.0 % Normal 95.0-100.0 [facility] Comment on above: Performed By: #### A BG ####[id number] [place] pCO2 49.6 mm[Hg] High 35.0-45.0 [facility] Comment on above: Performed By: #### A BG ####[id number] [place] pH 7.388 Normal 7.350-7.450 [facility] Comment on above: Performed By: #### A BG ####[address] [place] Std Base Excess 3.5 mmol/L High -3.0-3.0 [facility] Comment on above: Performed By: #### A BG ####[address] [place], [place] FIO2 60% Normal [facility] Comment on above: Performed By: #### A BG ####[address] Basic Metabolic Panelon 07-0 Calcium [Mass/Vol] 8.2 mg/dL Low 8.4-10.4 [facility] Comment on above: Performed By: #### M G3, TROPN, BMP3M, ICA, LDH3, HEMDF, CRP2, DDI2, FERR3, LFT3, PHOS3 ####[id number] [place] Glucose [Mass/Vol] 130 mg/dL High 70-100 [facility] Comment on above: Performed By: #### M G3, TROPN, BMP3M, ICA, LDH3, HEMDF, CRP2, DDI2, FERR3, LFT3, PHOS3 ####[id number] [place], [place] Anion gap [Moles/Vol] 8 mmol/L Normal 3-13 [facility] Comment on above: Performed By: #### M G3, TROPN, BMP3M, ICA, LDH3, HEMDF, CRP2, DDI2, FERR3, LFT3, PHOS3 ####[address] CO2 [Moles/Vol] 22 mmol/L Normal 22-30 [facility] Comment on above: Performed By: #### M G3, TROPN, BMP3M, ICA, LDH3, HEMDF, CRP2, DDI2, FERR3, LFT3, PHOS3 ####[address] Creatinine [Mass/Vol] 0.99 mg/dL Normal 0.52-1.25 [facility] Comment on above: Performed By: #### M G3, TROPN, BMP3M, ICA, LDH3, HEMDF, CRP2, DDI2, FERR3, LFT3, PHOS3 ####[address] GFR/1.73 sq M.predicted among blacks MDRD (S/P/Bld) [Vol rate/Area] 75.2 mL/min/{1.73_m2} Normal >60 [facility] Comment on above: Performed By: #### M G3, TROPN, BMP3M, ICA, LDH3, HEMDF, CRP2, DDI2, FERR3, LFT3, PHOS3 ####[address] GFR/1.73 sq M.predicted among non-blacks MDRD (S/P/Bld) [Vol rate/Area] 64.9 mL/min/{1.73_m2} Normal >60 [facility] Comment on above: Result Comment: KDIG O guidelines provide the following GFR categories:Stage GFR(ml/min/1.73 m2) TermsG1 >=90 Normal or highG2 60-89 Mildly decreased*G3a 45-59 Mildly to moderately [id number] 30-44 Moderately to severely decreasedG4 15-29 Severely decreasedG5 <15 Kidney failure*Relative to young adult level.In the absence of evidence of kidney damage, neither GFRcategory G1 nor G2 fulfill the criteria for CKD.The CKD-EPI equation is validated in individuals 18 yearsof age and older. Currently the best equation forestimating glomerular filtration rate (GFR) from serumcreatinine in children is the Bedside Arechiga equation.It is less accurate in patients with extremes of musclemass, restriction of dietary protein, ingestion of creatine,extra-renal metabolism of creatinine, or treatment withmedications that affect renal tubular creatinine secretion. Performed By: #### M G3, TROPN, BMP3M, ICA, LDH3, HEMDF, CRP2, DDI2, FERR3, LFT3, PHOS3 ####[id number] [place] [address] Urea nitrogen [Mass/Vol] 40 mg/dL High 7-20 [facility] Comment on above: Performed By: #### M G3, TROPN, BMP3M, ICA, LDH3, HEMDF, CRP2, DDI2, FERR3, LFT3, PHOS3 ####[address] [address] Potassium [Moles/Vol] 4.5 mmol/L Normal 3.5-5.1 [facility] Comment on above: Performed By: #### M G3, TROPN, BMP3M, ICA, LDH3, HEMDF, CRP2, DDI2, FERR3, LFT3, PHOS3 ####[address] [address] Chloride [Moles/Vol] 107 mmol/L Normal 98-107 [facility] Comment on above: Performed By: #### M G3, TROPN, BMP3M, ICA, LDH3, HEMDF, CRP2, DDI2, FERR3, LFT3, PHOS3 ####[id number] [place] [address] Sodium [Moles/Vol] 138 mmol/L Normal 135-145 [facility] Comment on above: Performed By: #### M G3, TROPN, BMP3M, ICA, LDH3, HEMDF, CRP2, DDI2, FERR3, LFT3, PHOS3 ####[id number] [place] [address] C-Reactive Proteinon 021 CRP [Mass/Vol] 54.6 mg/L High 0.0-6.0 [facility] Comment on above: Result Comment: . Performed By: #### M G3, TROPN, BMP3M, ICA, LDH3, HEMDF, CRP2, DDI2, FERR3, LFT3, PHOS3 ####[id number] [place] [address] CR Chest Portableon 06-06-20 21 CR Chest Portable Normal [facility] CULT./ST. RESPIRATORYon 0 CULT./ST. RESPIRATORY CULT./ST. RESPIRAT ORY --> Status: F Few normal respiratory pretty. Normal [facility] Comment on above: Performed By: #### S /GRM, CS/RE ####[id number] [place] [address] Calcium,Ionizedon 06-06-2021 Ionized Ca,Measured 4.20 mg/dL Low 4.30-5.20 [facility] Comment on above: Performed By: #### M G3, TROPN, BMP3M, ICA, LDH3, HEMDF, CRP2, DDI2, FERR3, LFT3, PHOS3 ####[facility] [id number] [place] [address] pH, Ionized Calcium 7.46 Normal 7.31-7.46 [facility] Comment on above: Performed By: #### M G3, TROPN, BMP3M, ICA, LDH3, HEMDF, CRP2, DDI2, FERR3, LFT3, PHOS3 ####[id number] [place] [address] D-Dimer, Innovanceon 021 D-Dimer, Innovance 13.81 mg/L High <0.19-0.50 [facility] Comment on above: Result Comment: Inno carrington D-Dimer values of <0.50 mg/L FEU can be used incombination with a pre-test probability model (e.g. Well's)to exclude pulmonary embolism (PE) disease, as well as jodi in the diagnosis of deep vein thrombosis (DVT). Performed By: #### M G3, TROPN, BMP3M, ICA, LDH3, HEMDF, CRP2, DDI2, FERR3, LFT3, PHOS3 ####[employer] [id number] [facility] [place] [address] Ferritinon 06-06-2021 Ferritin [Mass/Vol] 138 ng/mL Normal 8-252 [facility] Comment on above: Performed By: #### M G3, TROPN, BMP3M, ICA, LDH3, HEMDF, CRP2, DDI2, FERR3, LFT3, PHOS3 ####[facility] [id number] [facility] [place] [address] Glucose,Bedsideon 06-06-2021 Glucose [Mass/Vol] 145 mg/dL High 70-100 [facility] Comment on above: Result Comment: Test performed by glucose meter. Results may be 10%-15% lowerthan serum/plasma values. (CLIA ID [id number]) Performed By: #### B GLU ####[facility] [id number] [facility] [place] [address] Glucose [Mass/Vol] 159 mg/dL High 70-100 [facility] Comment on above: Result Comment: Test performed by glucose meter. Results may be 10%-15% lowerthan serum/plasma values. (CLIA ID [id number]) Performed By: #### B GLU ####[id number] [facility] [place] [address] Glucose [Mass/Vol] 126 mg/dL High 70-100 [facility] Comment on above: Result Comment: Test performed by glucose meter. Results may be 10%-15% lowerthan serum/plasma values. (CLIA ID [id number]) Performed By: #### B GLU ####[id number] [facility] [place] [address] Glucose [Mass/Vol] 148 mg/dL High 70-100 [facility] Comment on above: Result Comment: Test performed by glucose meter. Results may be 10%-15% lowerthan serum/plasma values. (CLIA ID [id number]) Performed By: #### B GLU ####[address] Hemogram w/ Autodiffon 06-06 Abs Baso Cnt 0.0 10*3/uL Normal 0.0-0.2 [facility] Comment on above: Performed By: #### M G3, TROPN, BMP3M, ICA, LDH3, HEMDF, CRP2, DDI2, FERR3, LFT3, PHOS3 ####[address] Abs Neutrophile Cnt 2.9 10*3/uL Normal 1.8-7.0 [facility] Comment on above: Performed By: #### M G3, TROPN, BMP3M, ICA, LDH3, HEMDF, CRP2, DDI2, FERR3, LFT3, PHOS3 ####[address] Basophils/100 WBC (Bld) 0.4 % Normal 0.0-2.0 [facility] Comment on above: Performed By: #### M G3, TROPN, BMP3M, ICA, LDH3, HEMDF, CRP2, DDI2, FERR3, LFT3, PHOS3 ####[address] Eosinophils (Bld) [#/Vol] 0.0 10*3/uL Normal 0.0-0.5 [facility] Comment on above: Performed By: #### M G3, TROPN, BMP3M, ICA, LDH3, HEMDF, CRP2, DDI2, FERR3, LFT3, PHOS3 ####[address] Eosinophils/100 WBC (Bld) 0.1 % Low 1.0-6.0 [facility] Comment on above: Performed By: #### M G3, TROPN, BMP3M, ICA, LDH3, HEMDF, CRP2, DDI2, FERR3, LFT3, PHOS3 ####[address] Erythrocyte distribution width (RBC) [Ratio] 20.1 % High 11.5-14.5 [facility] Comment on above: Performed By: #### M G3, TROPN, BMP3M, ICA, LDH3, HEMDF, CRP2, DDI2, FERR3, LFT3, PHOS3 ####[address] Granulocytes/100 WBC (Bld) 78.1 % Normal 40.0-80.0 [facility] Comment on above: Performed By: #### M G3, TROPN, BMP3M, ICA, LDH3, HEMDF, CRP2, DDI2, FERR3, LFT3, PHOS3 ####[address] Hematocrit (Bld) [Volume fraction] 33.8 % Low 35.0-47.0 [facility] Comment on above: Performed By: #### M G3, TROPN, BMP3M, ICA, LDH3, HEMDF, CRP2, DDI2, FERR3, LFT3, PHOS3 ####[address] Hemoglobin (Bld) [Mass/Vol] 10.6 g/dL Low 11.7-16.0 [facility] Comment on above: Performed By: #### M G3, TROPN, BMP3M, ICA, LDH3, HEMDF, CRP2, DDI2, FERR3, LFT3, PHOS3 ####[address] Lymphocytes (Bld) [#/Vol] 0.4 10*3/uL Low 1.0-4.3 [facility] Comment on above: Performed By: #### M G3, TROPN, BMP3M, ICA, LDH3, HEMDF, CRP2, DDI2, FERR3, LFT3, PHOS3 ####[address] Lymphocytes/100 WBC (Bld) 11.1 % Low 20.0-40.0 [facility] Comment on above: Performed By: #### M G3, TROPN, BMP3M, ICA, LDH3, HEMDF, CRP2, DDI2, FERR3, LFT3, PHOS3 ####[id number] [place], [place] MCH (RBC) [Entitic mass] 22.3 pg Low 26.0-34.0 [facility] Comment on above: Performed By: #### M G3, TROPN, BMP3M, ICA, LDH3, HEMDF, CRP2, DDI2, FERR3, LFT3, PHOS3 ####[id number] [place], [place] MCHC 31.4 % Low 32.0-36.0 [facility] Comment on above: Performed By: #### M G3, TROPN, BMP3M, ICA, LDH3, HEMDF, CRP2, DDI2, FERR3, LFT3, PHOS3 ####[id number] [place], [place] MCV (RBC) [Entitic vol] 71.1 fL Low 79.0-98.0 [facility] Comment on above: Performed By: #### M G3, TROPN, BMP3M, ICA, LDH3, HEMDF, CRP2, DDI2, FERR3, LFT3, PHOS3 ####[id number] [place], [place] Monocytes (Bld) [#/Vol] 0.4 10*3/uL Normal 0.0-0.8 [facility] Comment on above: Performed By: #### M G3, TROPN, BMP3M, ICA, LDH3, HEMDF, CRP2, DDI2, FERR3, LFT3, PHOS3 ####[id number] [place], [place] Monocytes/100 WBC (Bld) 10.3 % High 2.0-10.0 [facility] Comment on above: Performed By: #### M G3, TROPN, BMP3M, ICA, LDH3, HEMDF, CRP2, DDI2, FERR3, LFT3, PHOS3 ####[id number] [place], [place] Platelet mean volume (Bld) [Entitic vol] 8.5 fL Normal 7.4-10.4 [facility] Comment on above: Performed By: #### M G3, TROPN, BMP3M, ICA, LDH3, HEMDF, CRP2, DDI2, FERR3, LFT3, PHOS3 ####[id number] [place], [place] Platelets (Bld) [#/Vol] 176 10*3/uL Normal 140-440 [facility] Comment on above: Performed By: #### M G3, TROPN, BMP3M, ICA, LDH3, HEMDF, CRP2, DDI2, FERR3, LFT3, PHOS3 ####[id number] [place], [place] RBC (Bld) [#/Vol] 4.75 10*6/uL Normal 3.80-5.20 [facility] Comment on above: Performed By: #### M G3, TROPN, BMP3M, ICA, LDH3, HEMDF, CRP2, DDI2, FERR3, LFT3, PHOS3 ####[id number] [place], [place] WBC (Bld) [#/Vol] 3.7 10*3/uL Normal 3.6-10.7 [facility] Comment on above: Performed By: #### M G3, TROPN, BMP3M, ICA, LDH3, HEMDF, CRP2, DDI2, FERR3, LFT3, PHOS3 ####[id number] [place], [place] Hep B Core Ab,Totalon 2020 Hep B Core Ab,Total Negative Normal Negative [facility] Comment on above: Result Comment: INTE RPRETIVE INFORMATION: Hepatitis B Core Ab (Total)This assay should not be used for blood donor screening,associated re-entry protocols, or for screening Human Cells,Tissues and Cellular and Tissue-Based Products (HCT/P).Performed by [facility],[address] [place] [id number] [address], Merari Garcia MD - Lab. Director Performed By: #### H BSAG, LFT3, HEMDF, HIV4, TROPN, MG3, BMP3M, DDI2, PHOS3, CRP2, HEPC, ICA, FERR3, LDH3 ####[address] #### IL6O, HBCAO ####The performing lab is in the report. Hepatic Functionon 1 ALT [Catalytic activity/Vol] 70 U/L High 0-34 [facility] Comment on above: Result Comment: The ALT test is performed by an updated assay method.Please note that the reference intervals have beenchanged and are now sex specific. Performed By: #### M G3, TROPN, BMP3M, ICA, LDH3, HEMDF, CRP2, DDI2, FERR3, LFT3, PHOS3 ####[id number] [place], [place] ALP [Catalytic activity/Vol] 78 U/L Normal 38-126 [facility] Comment on above: Performed By: #### M G3, TROPN, BMP3M, ICA, LDH3, HEMDF, CRP2, DDI2, FERR3, LFT3, PHOS3 ####[address] AST [Catalytic activity/Vol] 87 U/L High 15-46 [facility] Comment on above: Performed By: #### M G3, TROPN, BMP3M, ICA, LDH3, HEMDF, CRP2, DDI2, FERR3, LFT3, PHOS3 ####[address] Bilirubin [Mass/Vol] 0.3 mg/dL Normal 0.2-1.3 [facility] Comment on above: Performed By: #### M G3, TROPN, BMP3M, ICA, LDH3, HEMDF, CRP2, DDI2, FERR3, LFT3, PHOS3 ####[address] Bilirubin.indirect [Mass/Vol] 0.0 mg/dL Normal 0.0-0.3 [facility] Comment on above: Performed By: #### M G3, TROPN, BMP3M, ICA, LDH3, HEMDF, CRP2, DDI2, FERR3, LFT3, PHOS3 ####[id number] [place] [address] Protein [Mass/Vol] 6.1 g/dL Low 6.3-8.2 [facility] Comment on above: Performed By: #### M G3, TROPN, BMP3M, ICA, LDH3, HEMDF, CRP2, DDI2, FERR3, LFT3, PHOS3 ####[id number] [place] [address] Albumin [Mass/Vol] 2.9 g/dL Low 3.5-5.0 [facility] Comment on above: Performed By: #### M G3, TROPN, BMP3M, ICA, LDH3, HEMDF, CRP2, DDI2, FERR3, LFT3, PHOS3 ####[address] [place] [address] LDHon 06-06-2021 LDH 408 U/L High 120-246 [facility] Comment on above: Performed By: #### M G3, TROPN, BMP3M, ICA, LDH3, HEMDF, CRP2, DDI2, FERR3, LFT3, PHOS3 ####[address] [place] [address] Magnesiumon 06-06-2021 Magnesium [Mass/Vol] 2.5 mg/dL High 1.6-2.3 [facility] Comment on above: Performed By: #### M G3, TROPN, BMP3M, ICA, LDH3, HEMDF, CRP2, DDI2, FERR3, LFT3, PHOS3 ####[id number] [place] [address] Phosphoruson 06-06-2021 Phosphate [Mass/Vol] 4.4 mg/dL Normal 2.5-4.5 [facility] Comment on above: Performed By: #### M G3, TROPN, BMP3M, ICA, LDH3, HEMDF, CRP2, DDI2, FERR3, LFT3, PHOS3 ####[id number] [place] [address] Troponin Ion 06-06-2021 Troponin I.cardiac [Mass/Vol] ng/mL Normal 0.000-0.034 [facility] Comment on above: Result Comment: . Performed By: #### M G3, TROPN, BMP3M, ICA, LDH3, HEMDF, CRP2, DDI2, FERR3, LFT3, PHOS3 ####[id number] [place] [address] Arterial Blood Gaseson 06-05 CO2 [Moles/Vol] 30.7 mmol/L High 23.0-27.0 [facility] Comment on above: Performed By: #### A BG ####[id number] [place], [place] HCO3 (Bld) [Moles/Vol] 29.2 mmol/L High 21.0-25.0 [facility] Comment on above: Performed By: #### A BG ####[address] [place] Hemoglobin (Bld) [Mass/Vol] 11.2 g/dL Normal ScreenOnly [facility] Comment on above: Performed By: #### A BG ####[id number] [place], [place] Oxygen (Bld) [Partial pressure] 97.0 mm[Hg] Normal 80.0-100.0 [facility] Comment on above: Performed By: #### A BG ####[address] Oxygen saturation in Blood 96.4 % Normal 95.0-100.0 [facility] Comment on above: Performed By: #### A BG ####[id number] [facility] [place] pCO2 51.0 mm[Hg] High 35.0-45.0 [facility] Comment on above: Performed By: #### A BG ####[address] pH 7.375 Normal 7.350-7.450 [facility] Comment on above: Performed By: #### A BG ####[id number] [place] Std Base Excess 3.2 mmol/L High -3.0-3.0 [facility] Comment on above: Performed By: #### A BG ####[id number] [place] FIO2 60% Normal [facility] Comment on above: Performed By: #### A BG ####[id number] [place] CO2 [Moles/Vol] 29.6 mmol/L High 23.0-27.0 [facility] Comment on above: Performed By: #### A BG ####[id number] [place] HCO3 (Bld) [Moles/Vol] 28.1 mmol/L High 21.0-25.0 [facility] Comment on above: Performed By: #### A BG ####[id number] [place] Hemoglobin (Bld) [Mass/Vol] 11.3 g/dL Normal ScreenOnly [facility] Comment on above: Performed By: #### A BG ####[id number] [place] Oxygen (Bld) [Partial pressure] 91.1 mm[Hg] Normal 80.0-100.0 [facility] Comment on above: Performed By: #### A BG ####[id number] [place], [place] Oxygen saturation in Blood 96.0 % Normal 95.0-100.0 [facility] Comment on above: Performed By: #### A BG ####[address] [place] pCO2 50.2 mm[Hg] High 35.0-45.0 [facility] Comment on above: Performed By: #### A BG ####[address] [place] pH 7.366 Normal 7.350-7.450 [facility] Comment on above: Performed By: #### A BG ####[id number] [place] Std Base Excess 2.1 mmol/L Normal -3.0-3.0 [facility] Comment on above: Performed By: #### A BG ####[address] [place] FIO2 60% Normal [facility] Comment on above: Performed By: #### A BG ####[address] CO2 [Moles/Vol] 28.7 mmol/L High 23.0-27.0 [facility] Comment on above: Performed By: #### A BG ####[address] HCO3 (Bld) [Moles/Vol] 27.1 mmol/L High 21.0-25.0 [facility] Comment on above: Performed By: #### A BG ####[place] [address] [place], [place] Hemoglobin (Bld) [Mass/Vol] 11.6 g/dL Normal ScreenOnly [facility] Comment on above: Performed By: #### A BG ####[address] [place] Oxygen (Bld) [Partial pressure] 84.2 mm[Hg] Normal 80.0-100.0 [facility] Comment on above: Performed By: #### A BG ####[address] Oxygen saturation in Blood 95.7 % Normal 95.0-100.0 [facility] Comment on above: Performed By: #### A BG ####[address] pCO2 50.8 mm[Hg] High 35.0-45.0 [facility] Comment on above: Performed By: #### A BG ####[place] [id number] [place], [place] pH 7.345 Low 7.350-7.450 [facility] Comment on above: Performed By: #### A BG ####[place] [id number] [facility], [place] Std Base Excess 0.8 mmol/L Normal -3.0-3.0 [facility] Comment on above: Performed By: #### A BG ####[place] [id number] [facility] [place] FIO2 60% Normal [facility] Comment on above: Performed By: #### A BG ####[id number] [place] CO2 [Moles/Vol] 28.9 mmol/L High 23.0-27.0 [facility] Comment on above: Performed By: #### A BG ####[place] [id number] [facility] [place] HCO3 (Bld) [Moles/Vol] 27.4 mmol/L High 21.0-25.0 [facility] Comment on above: Performed By: #### A BG ####[id number] [place], [place] Hemoglobin (Bld) [Mass/Vol] 11.6 g/dL Normal ScreenOnly [facility] Comment on above: Performed By: #### A BG ####[id number] [facility], [place] Oxygen (Bld) [Partial pressure] 83.5 mm[Hg] Normal 80.0-100.0 [facility] Comment on above: Performed By: #### A BG ####[id number] [facility], [place] Oxygen saturation in Blood 95.0 % Normal 95.0-100.0 [facility] Comment on above: Performed By: #### A BG ####[facility] [address] pCO2 48.5 mm[Hg] High 35.0-45.0 [facility] Comment on above: Performed By: #### A BG ####[address] pH 7.370 Normal 7.350-7.450 [facility] Comment on above: Performed By: #### A BG ####[address] Std Base Excess 1.6 mmol/L Normal -3.0-3.0 [facility] Comment on above: Performed By: #### A BG ####[address] FIO2 60% Normal [facility] Comment on above: Performed By: #### A BG ####[address] Basic Metabolic Panelon 07-0 Calcium [Mass/Vol] 8.5 mg/dL Normal 8.4-10.4 [facility] Comment on above: Performed By: #### H BSAG, LFT3, HEMDF, HIV4, TROPN, MG3, BMP3M, DDI2, PHOS3, CRP2, HEPC, ICA, FERR3, LDH3 ####[address] #### IL6O, HBCAO ####The performing lab is in the report. Anion gap [Moles/Vol] 6 mmol/L Normal 3-13 [facility] Comment on above: Performed By: #### H BSAG, LFT3, HEMDF, HIV4, TROPN, MG3, BMP3M, DDI2, PHOS3, CRP2, HEPC, ICA, FERR3, LDH3 ####[address] #### IL6O, HBCAO ####The performing lab is in the report. CO2 [Moles/Vol] 25 mmol/L Normal 22-30 [facility] Comment on above: Performed By: #### H BSAG, LFT3, HEMDF, HIV4, TROPN, MG3, BMP3M, DDI2, PHOS3, CRP2, HEPC, ICA, FERR3, LDH3 ####[address] #### IL6O, HBCAO ####The performing lab is in the report. Glucose [Mass/Vol] 203 mg/dL High 70-100 [facility] Comment on above: Performed By: #### H BSAG, LFT3, HEMDF, HIV4, TROPN, MG3, BMP3M, DDI2, PHOS3, CRP2, HEPC, ICA, FERR3, LDH3 ####[address] #### IL6O, HBCAO ####The performing lab is in the report. Urea nitrogen [Mass/Vol] 27 mg/dL High 7-20 [facility] Comment on above: Performed By: #### H BSAG, LFT3, HEMDF, HIV4, TROPN, MG3, BMP3M, DDI2, PHOS3, CRP2, HEPC, ICA, FERR3, LDH3 ####[address] #### IL6O, HBCAO ####The performing lab is in the report. Creatinine [Mass/Vol] 0.96 mg/dL Normal 0.52-1.25 [facility] Comment on above: Performed By: #### H BSAG, LFT3, HEMDF, HIV4, TROPN, MG3, BMP3M, DDI2, PHOS3, CRP2, HEPC, ICA, FERR3, LDH3 ####[address] #### IL6O, HBCAO ####The performing lab is in the report. GFR/1.73 sq M.predicted among blacks MDRD (S/P/Bld) [Vol rate/Area] 78.1 mL/min/{1.73_m2} Normal >60 [facility] Comment on above: Performed By: #### H BSAG, LFT3, HEMDF, HIV4, TROPN, MG3, BMP3M, DDI2, PHOS3, CRP2, HEPC, ICA, FERR3, LDH3 ####[address] [address]#### IL6O, HBCAO ####The performing lab is in the report. GFR/1.73 sq M.predicted among non-blacks MDRD (S/P/Bld) [Vol rate/Area] 67.4 mL/min/{1.73_m2} Normal >60 [facility] Comment on above: Result Comment: KDIG O guidelines provide the following GFR categories:Stage GFR(ml/min/1.73 m2) TermsG1 >=90 Normal or highG2 60-89 Mildly decreased*G3a 45-59 Mildly to moderately pzkmdgjalT6b 30-44 Moderately to severely decreasedG4 15-29 Severely decreasedG5 <15 Kidney failure*Relative to young adult level.In the absence of evidence of kidney damage, neither GFRcategory G1 nor G2 fulfill the criteria for CKD.The CKD-EPI equation is validated in individuals 18 yearsof age and older. Currently the best equation forestimating glomerular filtration rate (GFR) from serumcreatinine in children is the Bedside Arechiga equation.It is less accurate in patients with extremes of musclemass, restriction of dietary protein, ingestion of creatine,extra-renal metabolism of creatinine, or treatment withmedications that affect renal tubular creatinine secretion. Performed By: #### H BSAG, LFT3, HEMDF, HIV4, TROPN, MG3, BMP3M, DDI2, PHOS3, CRP2, HEPC, ICA, FERR3, LDH3 ####[address] [address]#### IL6O, HBCAO ####The performing lab is in the report. Potassium [Moles/Vol] 4.2 mmol/L Normal 3.5-5.1 [facility] Comment on above: Performed By: #### H BSAG, LFT3, HEMDF, HIV4, TROPN, MG3, BMP3M, DDI2, PHOS3, CRP2, HEPC, ICA, FERR3, LDH3 ####[address] #### IL6O, HBCAO ####The performing lab is in the report. Sodium [Moles/Vol] 137 mmol/L Normal 135-145 [facility] Comment on above: Performed By: #### H BSAG, LFT3, HEMDF, HIV4, TROPN, MG3, BMP3M, DDI2, PHOS3, CRP2, HEPC, ICA, FERR3, LDH3 ####[address] #### IL6O, HBCAO ####The performing lab is in the report. Chloride [Moles/Vol] 106 mmol/L Normal 98-107 [facility] Comment on above: Performed By: #### H BSAG, LFT3, HEMDF, HIV4, TROPN, MG3, BMP3M, DDI2, PHOS3, CRP2, HEPC, ICA, FERR3, LDH3 ####[address] [address]#### IL6O, HBCAO ####The performing lab is in the report. C-Reactive Proteinon 021 CRP [Mass/Vol] 89.2 mg/L High 0.0-6.0 [facility] Comment on above: Result Comment: . Performed By: #### H BSAG, LFT3, HEMDF, HIV4, TROPN, MG3, BMP3M, DDI2, PHOS3, CRP2, HEPC, ICA, FERR3, LDH3 ####[address] #### IL6O, HBCAO ####The performing lab is in the report. CR Chest Portableon 06-05-20 CR Chest Portable Normal [facility] Calcium,Ionizedon 06-05-2021 Ionized Ca,Measured 4.60 mg/dL Normal 4.30-5.20 [facility] Comment on above: Performed By: #### H BSAG, LFT3, HEMDF, HIV4, TROPN, MG3, BMP3M, DDI2, PHOS3, CRP2, HEPC, ICA, FERR3, LDH3 ####[id number] [place], [place] #### IL6O, HBCAO ####The performing lab is in the report. pH, Ionized Calcium 7.35 Normal 7.31-7.46 [facility] Comment on above: Performed By: #### H BSAG, LFT3, HEMDF, HIV4, TROPN, MG3, BMP3M, DDI2, PHOS3, CRP2, HEPC, ICA, FERR3, LDH3 ####[address] #### IL6O, HBCAO ####The performing lab is in the report. D-Dimer, Innovanceon 021 D-Dimer, Innovance 4.34 mg/L High <0.19-0.50 [facility] Comment on above: Result Comment: Inno carrington D-Dimer values of <0.50 mg/L FEU can be used incombination with a pre-test probability model (e.g. Well's)to exclude pulmonary embolism (PE) disease, as well as jodi in the diagnosis of deep vein thrombosis (DVT). Performed By: #### H BSAG, LFT3, HEMDF, HIV4, TROPN, MG3, BMP3M, DDI2, PHOS3, CRP2, HEPC, ICA, FERR3, LDH3 ####[address] #### IL6O, HBCAO ####The performing lab is in the report. Ferritinon 06-05-2021 Ferritin [Mass/Vol] 189 ng/mL Normal 8-252 [facility] Comment on above: Performed By: #### H BSAG, LFT3, HEMDF, HIV4, TROPN, MG3, BMP3M, DDI2, PHOS3, CRP2, HEPC, ICA, FERR3, LDH3 ####[address] #### IL6O, HBCAO ####The performing lab is in the report. Glucose,Bedsideon 06-05-2021 Glucose [Mass/Vol] 191 mg/dL High 70-100 [facility] Comment on above: Result Comment: Test performed by glucose meter. Results may be 10%-15% lowerthan serum/plasma values. (CLIA ID [id number]) Performed By: #### B GLU ####[employer] [id number] [place] [address] Glucose [Mass/Vol] 193 mg/dL High 70-100 [facility] Comment on above: Result Comment: Test performed by glucose meter. Results may be 10%-15% lowerthan serum/plasma values. (CLIA ID [id number]) Performed By: #### B GLU ####[facility] [id number] [place] [address] Glucose [Mass/Vol] 163 mg/dL High 70-[address] [place] [address] Comment on above: Result Comment: Test performed by glucose meter. Results may be 10%-15% lowerthan serum/plasma values. (CLIA ID [id number]) Performed By: #### B GLU ####[facility] [address] [place] [address] Glucose [Mass/Vol] 179 mg/dL High [address] Comment on above: Result Comment: Test performed by glucose meter. Results may be 10%-15% lowerthan serum/plasma values. (CLIA ID [id number]) Performed By: #### B GLU ####[employer] [address] [place] [address] Glucose [Mass/Vol] 220 mg/dL High 70-[address] [place] [address] Comment on above: Result Comment: Test performed by glucose meter. Results may be 10%-15% lowerthan serum/plasma values. (CLIA ID [id number]) Performed By: #### B GLU ####[employer] [id number] [place] [address] HIV 1,2 Ab; p24 Agon HIV 1,2 Ab; p24 Ag Non-Reactive Normal Nonreactive [facility] Comment on above: Result Comment: The specimen was non-reactive for HIV-1 and HIV-2antibodies and p24 antigen using an FDA-cleared 4thgeneration HIV test. Based on this non-reactive screenresult, further reflexive testing was not indicated andwas, therefore, not performed. Performed By: #### H BSAG, LFT3, HEMDF, HIV4, TROPN, MG3, BMP3M, DDI2, PHOS3, CRP2, HEPC, ICA, FERR3, LDH3 ####[place] [address]#### IL6O, HBCAO ####The performing lab is in the report. Hemogram w/ Autodiffon 06-05 Abs Baso Cnt 0.0 10*3/uL Normal 0.0-0.2 [facility] Comment on above: Performed By: #### H BSAG, LFT3, HEMDF, HIV4, TROPN, MG3, BMP3M, DDI2, PHOS3, CRP2, HEPC, ICA, FERR3, LDH3 ####[address] [address]#### IL6O, HBCAO ####The performing lab is in the report. Abs Neutrophile Cnt 1.8 10*3/uL Normal 1.8-7.0 [facility] Comment on above: Performed By: #### H BSAG, LFT3, HEMDF, HIV4, TROPN, MG3, BMP3M, DDI2, PHOS3, CRP2, HEPC, ICA, FERR3, LDH3 ####[address] #### IL6O, HBCAO ####The performing lab is in the report. Basophils/100 WBC (Bld) 0.0 % Normal 0.0-2.0 [facility] Comment on above: Performed By: #### H BSAG, LFT3, HEMDF, HIV4, TROPN, MG3, BMP3M, DDI2, PHOS3, CRP2, HEPC, ICA, FERR3, LDH3 ####[address] #### IL6O, HBCAO ####The performing lab is in the report. Eosinophils (Bld) [#/Vol] 0.0 10*3/uL Normal 0.0-0.5 [facility] Comment on above: Performed By: #### H BSAG, LFT3, HEMDF, HIV4, TROPN, MG3, BMP3M, DDI2, PHOS3, CRP2, HEPC, ICA, FERR3, LDH3 ####[place] [address]#### IL6O, HBCAO ####The performing lab is in the report. Eosinophils/100 WBC (Bld) 0.0 % Low 1.0-6.0 [facility] Comment on above: Performed By: #### H BSAG, LFT3, HEMDF, HIV4, TROPN, MG3, BMP3M, DDI2, PHOS3, CRP2, HEPC, ICA, FERR3, LDH3 ####[place] [address]#### IL6O, HBCAO ####The performing lab is in the report. Erythrocyte distribution width (RBC) [Ratio] 20.3 % High 11.5-14.5 [facility] Comment on above: Performed By: #### H BSAG, LFT3, HEMDF, HIV4, TROPN, MG3, BMP3M, DDI2, PHOS3, CRP2, HEPC, ICA, FERR3, LDH3 ####[place] [address]#### IL6O, HBCAO ####The performing lab is in the report. Granulocytes/100 WBC (Bld) 76.6 % Normal 40.0-80.0 [facility] Comment on above: Performed By: #### H BSAG, LFT3, HEMDF, HIV4, TROPN, MG3, BMP3M, DDI2, PHOS3, CRP2, HEPC, ICA, FERR3, LDH3 ####[address] #### IL6O, HBCAO ####The performing lab is in the report. Hematocrit (Bld) [Volume fraction] 34.4 % Low 35.0-47.0 [facility] Comment on above: Performed By: #### H BSAG, LFT3, HEMDF, HIV4, TROPN, MG3, BMP3M, DDI2, PHOS3, CRP2, HEPC, ICA, FERR3, LDH3 ####[address] [address]#### IL6O, HBCAO ####The performing lab is in the report. Hemoglobin (Bld) [Mass/Vol] 10.7 g/dL Low 11.7-16.0 [facility] Comment on above: Performed By: #### H BSAG, LFT3, HEMDF, HIV4, TROPN, MG3, BMP3M, DDI2, PHOS3, CRP2, HEPC, ICA, FERR3, LDH3 ####[address] [address]#### IL6O, HBCAO ####The performing lab is in the report. Lymphocytes (Bld) [#/Vol] 0.2 10*3/uL Low 1.0-4.3 [facility] Comment on above: Performed By: #### H BSAG, LFT3, HEMDF, HIV4, TROPN, MG3, BMP3M, DDI2, PHOS3, CRP2, HEPC, ICA, FERR3, LDH3 ####[address] #### IL6O, HBCAO ####The performing lab is in the report. Lymphocytes/100 WBC (Bld) 10.3 % Low 20.0-40.0 [facility] Comment on above: Performed By: #### H BSAG, LFT3, HEMDF, HIV4, TROPN, MG3, BMP3M, DDI2, PHOS3, CRP2, HEPC, ICA, FERR3, LDH3 ####[address] [address]#### IL6O, HBCAO ####The performing lab is in the report. MCH (RBC) [Entitic mass] 22.3 pg Low 26.0-34.0 [facility] Comment on above: Performed By: #### H BSAG, LFT3, HEMDF, HIV4, TROPN, MG3, BMP3M, DDI2, PHOS3, CRP2, HEPC, ICA, FERR3, LDH3 ####[address] #### IL6O, HBCAO ####The performing lab is in the report. MCHC 31.3 % Low 32.0-36.0 [facility] Comment on above: Performed By: #### H BSAG, LFT3, HEMDF, HIV4, TROPN, MG3, BMP3M, DDI2, PHOS3, CRP2, HEPC, ICA, FERR3, LDH3 ####[address] #### IL6O, HBCAO ####The performing lab is in the report. MCV (RBC) [Entitic vol] 71.2 fL Low 79.0-98.0 [facility] Comment on above: Performed By: #### H BSAG, LFT3, HEMDF, HIV4, TROPN, MG3, BMP3M, DDI2, PHOS3, CRP2, HEPC, ICA, FERR3, LDH3 ####[address] #### IL6O, HBCAO ####The performing lab is in the report. Monocytes (Bld) [#/Vol] 0.3 10*3/uL Normal 0.0-0.8 [facility] Comment on above: Performed By: #### H BSAG, LFT3, HEMDF, HIV4, TROPN, MG3, BMP3M, DDI2, PHOS3, CRP2, HEPC, ICA, FERR3, LDH3 ####[address] #### IL6O, HBCAO ####The performing lab is in the report. Monocytes/100 WBC (Bld) 13.1 % High 2.0-10.0 [facility] Comment on above: Performed By: #### H BSAG, LFT3, HEMDF, HIV4, TROPN, MG3, BMP3M, DDI2, PHOS3, CRP2, HEPC, ICA, FERR3, LDH3 ####[address] [address]#### IL6O, HBCAO ####The performing lab is in the report. Platelet mean volume (Bld) [Entitic vol] 8.5 fL Normal 7.4-10.4 [facility] Comment on above: Performed By: #### H BSAG, LFT3, HEMDF, HIV4, TROPN, MG3, BMP3M, DDI2, PHOS3, CRP2, HEPC, ICA, FERR3, LDH3 ####[address] [address]#### IL6O, HBCAO ####The performing lab is in the report. Platelets (Bld) [#/Vol] 163 10*3/uL Normal 140-440 [facility] Comment on above: Performed By: #### H BSAG, LFT3, HEMDF, HIV4, TROPN, MG3, BMP3M, DDI2, PHOS3, CRP2, HEPC, ICA, FERR3, LDH3 ####[address] [address]#### IL6O, HBCAO ####The performing lab is in the report. RBC (Bld) [#/Vol] 4.83 10*6/uL Normal 3.80-5.20 [facility] Comment on above: Performed By: #### H BSAG, LFT3, HEMDF, HIV4, TROPN, MG3, BMP3M, DDI2, PHOS3, CRP2, HEPC, ICA, FERR3, LDH3 ####[address] [address]#### IL6O, HBCAO ####The performing lab is in the report. WBC (Bld) [#/Vol] 2.3 10*3/uL Low 3.6-10.7 [facility] Comment on above: Performed By: #### H BSAG, LFT3, HEMDF, HIV4, TROPN, MG3, BMP3M, DDI2, PHOS3, CRP2, HEPC, ICA, FERR3, LDH3 ####[place] [address]#### IL6O, HBCAO ####The performing lab is in the report. Hep B Surface Abon 1 Hep B Surface Ab < 8.0 Normal [facility] Comment on above: Result Comment: Inte rpretation:<8.0 Non-Reactive8.0-11.9 Equivocal>= 12.0 Ab DetectedNote: If an equivocal result is interpreted, an antibodystatus is unable to be determined. Collect new specimenif clinically indicated. Performed By: #### H BSA ####[address] Hep B Surface Agon 1 Hep B Surface Ag Not detected Normal Not Detected [facility] Comment on above: Performed By: #### H BSAG, LFT3, HEMDF, HIV4, TROPN, MG3, BMP3M, DDI2, PHOS3, CRP2, HEPC, ICA, FERR3, LDH3 ####[place] [address]#### IL6O, HBCAO ####The performing lab is in the report. Hep C Antibodyon 06-05-2021 Hep C Antibody Not detected Normal Not Detected [facility] Comment on above: Result Comment: Dalila ents with DETECTED Hepatitis C Ab results should have a new specimensubmitted for supplemental testing with a Hepatitis C Quantitative RNA assay(viral load), if clinically indicated. Performed By: #### H BSAG, LFT3, HEMDF, HIV4, TROPN, MG3, BMP3M, DDI2, PHOS3, CRP2, HEPC, ICA, FERR3, LDH3 ####[place] [address]#### IL6O, HBCAO ####The performing lab is in the report. Hepatic Functionon 1 ALT [Catalytic activity/Vol] 42 U/L High 0-34 [facility] Comment on above: Result Comment: The ALT test is performed by an updated assay method.Please note that the reference intervals have beenchanged and are now sex specific. Performed By: #### H BSAG, LFT3, HEMDF, HIV4, TROPN, MG3, BMP3M, DDI2, PHOS3, CRP2, HEPC, ICA, FERR3, LDH3 ####[address] #### IL6O, HBCAO ####The performing lab is in the report. ALP [Catalytic activity/Vol] 82 U/L Normal 38-126 [facility] Comment on above: Performed By: #### H BSAG, LFT3, HEMDF, HIV4, TROPN, MG3, BMP3M, DDI2, PHOS3, CRP2, HEPC, ICA, FERR3, LDH3 ####[address] #### IL6O, HBCAO ####The performing lab is in the report. AST [Catalytic activity/Vol] 49 U/L High 15-46 [facility] Comment on above: Performed By: #### H BSAG, LFT3, HEMDF, HIV4, TROPN, MG3, BMP3M, DDI2, PHOS3, CRP2, HEPC, ICA, FERR3, LDH3 ####[address] #### IL6O, HBCAO ####The performing lab is in the report. Bilirubin [Mass/Vol] 0.3 mg/dL Normal 0.2-1.3 [facility] Comment on above: Performed By: #### H BSAG, LFT3, HEMDF, HIV4, TROPN, MG3, BMP3M, DDI2, PHOS3, CRP2, HEPC, ICA, FERR3, LDH3 ####[address] #### IL6O, HBCAO ####The performing lab is in the report. Bilirubin.indirect [Mass/Vol] 0.0 mg/dL Normal 0.0-0.3 [facility] Comment on above: Performed By: #### H BSAG, LFT3, HEMDF, HIV4, TROPN, MG3, BMP3M, DDI2, PHOS3, CRP2, HEPC, ICA, FERR3, LDH3 ####[place] [address]#### IL6O, HBCAO ####The performing lab is in the report. Protein [Mass/Vol] 6.3 g/dL Normal 6.3-8.2 [facility] Comment on above: Performed By: #### H BSAG, LFT3, HEMDF, HIV4, TROPN, MG3, BMP3M, DDI2, PHOS3, CRP2, HEPC, ICA, FERR3, LDH3 ####[address] [address]#### IL6O, HBCAO ####The performing lab is in the report. Albumin [Mass/Vol] 3.0 g/dL Low 3.5-5.0 [facility] Comment on above: Performed By: #### H BSAG, LFT3, HEMDF, HIV4, TROPN, MG3, BMP3M, DDI2, PHOS3, CRP2, HEPC, ICA, FERR3, LDH3 ####[place] [address]#### IL6O, HBCAO ####The performing lab is in the report. LDHon 06-05-2021 LDH 383 U/L High 120-246 [facility] Comment on above: Performed By: #### H BSAG, LFT3, HEMDF, HIV4, TROPN, MG3, BMP3M, DDI2, PHOS3, CRP2, HEPC, ICA, FERR3, LDH3 ####[address] [address]#### IL6O, HBCAO ####The performing lab is in the report. Magnesiumon 06-05-2021 Magnesium [Mass/Vol] 2.4 mg/dL High 1.6-2.3 [facility] Comment on above: Performed By: #### H BSAG, LFT3, HEMDF, HIV4, TROPN, MG3, BMP3M, DDI2, PHOS3, CRP2, HEPC, ICA, FERR3, LDH3 ####[address] #### IL6O, HBCAO ####The performing lab is in the report. Phosphoruson 06-05-2021 Phosphate [Mass/Vol] 4.4 mg/dL Normal 2.5-4.5 [facility] Comment on above: Performed By: #### H BSAG, LFT3, HEMDF, HIV4, TROPN, MG3, BMP3M, DDI2, PHOS3, CRP2, HEPC, ICA, FERR3, LDH3 ####[address] #### IL6O, HBCAO ####The performing lab is in the report. Procalcitoninon 06-05-2021 Procalcitonin 0.07 ng/mL Normal 0.00-0.09 [facility] Comment on above: Performed By: #### P OLESYA ####[address] Interpretation See Below Normal [facility] Comment on above: Result Comment: PCT <0.50 = Low risk of severe sepsis and/or septic shock.PCT >2.00 = High risk of severe sepsis and/or septic shock. Performed By: #### P OLESYA ####[address] Quantiferonon 06-05-2021 Quantiferon Negative Normal Negative [facility] Comment on above: Performed By: #### C ORTL, QTF, DDI2, PT, CK3, ICA, FEIBC, LIPD2, TROPN, LACT3, MG3, FERR3, HA1C2, APTT, BNP3, PHOS3, PCAL, HEMDF, CRP2, LDH3, BMP3M, TSH5 ####[address] #### TRFN, [id number] ####[facility] [facility] [place] [address] Troponin Ion 06-05-2021 Troponin I.cardiac [Mass/Vol] ng/mL Normal 0.000-0.034 [facility] Comment on above: Result Comment: . Performed By: #### H BSAG, LFT3, HEMDF, HIV4, TROPN, MG3, BMP3M, DDI2, PHOS3, CRP2, HEPC, ICA, FERR3, LDH3 ####[facility] [place], [place] #### IL6O, HBCAO ####The performing lab is in the report. Arterial Blood Gaseson 06-04 CO2 [Moles/Vol] 27.9 mmol/L High 23.0-27.0 [facility] Comment on above: Performed By: #### A BG ####[id number] [place], [place] HCO3 (Bld) [Moles/Vol] 26.5 mmol/L High 21.0-25.0 [facility] Comment on above: Performed By: #### A BG ####[id number] [place], [place] Hemoglobin (Bld) [Mass/Vol] 12.1 g/dL Normal ScreenOnly [facility] Comment on above: Performed By: #### A BG ####[id number] [place], [place] Oxygen (Bld) [Partial pressure] 142.9 mm[Hg] High 80.0-100.0 [facility] Comment on above: Performed By: #### A BG ####[id number] [place], [place] Oxygen saturation in Blood 98.5 % Normal 95.0-100.0 [facility] Comment on above: Performed By: #### A BG ####[id number] [place], [place] pCO2 47.7 mm[Hg] High 35.0-45.0 [facility] Comment on above: Performed By: #### A BG ####[address] [place], [place] pH 7.362 Normal 7.350-7.450 [facility] Comment on above: Performed By: #### A BG ####[address] [place], [place] Std Base Excess 0.6 mmol/L Normal -3.0-3.0 [facility] Comment on above: Performed By: #### A BG ####[id number] [place], [place] FIO2 90% Normal [facility] Comment on above: Performed By: #### A BG ####[address] [place], [place] CO2 [Moles/Vol] 26.8 mmol/L Normal 23.0-27.0 [facility] Comment on above: Performed By: #### A BG ####[address] [place], [place] HCO3 (Bld) [Moles/Vol] 25.3 mmol/L High 21.0-25.0 [facility] Comment on above: Performed By: #### A BG ####[address] [place], [place] Hemoglobin (Bld) [Mass/Vol] 12.1 g/dL Normal ScreenOnly [facility] Comment on above: Performed By: #### A BG ####[address] [place], [place] Oxygen (Bld) [Partial pressure] 171.0 mm[Hg] High 80.0-100.0 [facility] Comment on above: Performed By: #### A BG ####[address] Oxygen saturation in Blood 98.9 % Normal 95.0-100.0 [facility] Comment on above: Performed By: #### A BG ####[id number] [place], [place] pCO2 50.5 mm[Hg] High 35.0-45.0 [facility] Comment on above: Performed By: #### A BG ####[id number] [place], [place] pH 7.317 Low 7.350-7.450 [facility] Comment on above: Performed By: #### A BG ####[id number] [place], [place] Std Base Excess -1.3 mmol/L Normal -3.0-3.0 [facility] Comment on above: Performed By: #### A BG ####[id number] [place], [place] FIO2 100% Normal [facility] Comment on above: Performed By: #### A BG ####[address] [address] [address] [place], [place] CO2 [Moles/Vol] 29.7 mmol/L High 23.0-27.0 [facility] Comment on above: Performed By: #### A BG ####[address] [place], [place] HCO3 (Bld) [Moles/Vol] 28.2 mmol/L High 21.0-25.0 [facility] Comment on above: Performed By: #### A BG ####[id number] [place], [place] Hemoglobin (Bld) [Mass/Vol] 12.3 g/dL Normal ScreenOnly [facility] Comment on above: Performed By: #### A BG ####[id number] [place], [place] Oxygen (Bld) [Partial pressure] 92.9 mm[Hg] Normal 80.0-100.0 [facility] Comment on above: Performed By: #### A BG ####[id number] [place], [place] Oxygen saturation in Blood 96.0 % Normal 95.0-100.0 [facility] Comment on above: Performed By: #### A BG ####[address] [place] pCO2 50.3 mm[Hg] High 35.0-45.0 [facility] Comment on above: Performed By: #### A BG ####[id number] [place], [place] pH 7.366 Normal 7.350-7.450 [facility] Comment on above: Performed By: #### A BG ####[address] [place], [place] Std Base Excess 2.1 mmol/L Normal -3.0-3.0 [facility] Comment on above: Performed By: #### A BG ####[address] FIO2 100% Normal [facility] Comment on above: Performed By: #### A BG ####[address] CO2 [Moles/Vol] 29.3 mmol/L High 23.0-27.0 [facility] Comment on above: Performed By: #### A BG ####[address] [address] [place] HCO3 (Bld) [Moles/Vol] 27.9 mmol/L High 21.0-25.0 [facility] Comment on above: Performed By: #### A BG ####[address] [address] [place] Hemoglobin (Bld) [Mass/Vol] 12.8 g/dL Normal ScreenOnly [facility] Comment on above: Performed By: #### A BG ####[address] Oxygen (Bld) [Partial pressure] 70.0 mm[Hg] Low 80.0-100.0 [facility] Comment on above: Performed By: #### A BG ####[address] Oxygen saturation in Blood 92.2 % Low 95.0-100.0 [facility] Comment on above: Performed By: #### A BG ####[id number] [place] pCO2 44.5 mm[Hg] Normal 35.0-45.0 [facility] Comment on above: Performed By: #### A BG ####[id number] [place], [place] pH 7.415 Normal 7.350-7.450 [facility] Comment on above: Performed By: #### A BG ####[address] [place] Std Base Excess 2.9 mmol/L Normal -3.0-3.0 [facility] Comment on above: Performed By: #### A BG ####[id number] [place] FIO2 100% Normal [facility] Comment on above: Performed By: #### A BG ####[id number] [place], [place] Basic Metabolic Panelon 07-0 -2020 Calcium [Mass/Vol] 8.6 mg/dL Normal 8.4-10.4 [facility] Comment on above: Performed By: #### I CA, DDI2, MG3, PHOS3, FERR3, CRP2, HEMDF, LDH3, LFT3, BMP3M ####[id number] [place] Glucose [Mass/Vol] 174 mg/dL High 70-100 [facility] Comment on above: Performed By: #### I CA, DDI2, MG3, PHOS3, FERR3, CRP2, HEMDF, LDH3, LFT3, BMP3M ####[id number] [place] Anion gap [Moles/Vol] 7 mmol/L Normal 3-13 [facility] Comment on above: Performed By: #### I CA, DDI2, MG3, PHOS3, FERR3, CRP2, HEMDF, LDH3, LFT3, BMP3M ####[address] [address] [place], [place] CO2 [Moles/Vol] 27 mmol/L Normal 22-30 [facility] Comment on above: Performed By: #### I CA, DDI2, MG3, PHOS3, FERR3, CRP2, HEMDF, LDH3, LFT3, BMP3M ####[id number] [place], [place] Urea nitrogen [Mass/Vol] 15 mg/dL Normal 7-20 [facility] Comment on above: Performed By: #### I CA, DDI2, MG3, PHOS3, FERR3, CRP2, HEMDF, LDH3, LFT3, BMP3M ####[id number] [place], [place] Creatinine [Mass/Vol] 0.56 mg/dL Normal 0.52-1.25 [facility] Comment on above: Performed By: #### I CA, DDI2, MG3, PHOS3, FERR3, CRP2, HEMDF, LDH3, LFT3, BMP3M ####[address] eGFR OTHER > 90.0 Normal >60 [facility] Comment on above: Result Comment: KDIG O guidelines provide the following GFR categories:Stage GFR(ml/min/1.73 m2) TermsG1 >=90 Normal or highG2 60-89 Mildly decreased*G3a 45-59 Mildly to moderately [id number] 30-44 Moderately to severely decreasedG4 15-29 Severely decreasedG5 <15 Kidney failure*Relative to young adult level.In the absence of evidence of kidney damage, neither GFRcategory G1 nor G2 fulfill the criteria for CKD.The CKD-EPI equation is validated in individuals 18 yearsof age and older. Currently the best equation forestimating glomerular filtration rate (GFR) from serumcreatinine in children is the Bedside Arechiga equation.It is less accurate in patients with extremes of musclemass, restriction of dietary protein, ingestion of creatine,extra-renal metabolism of creatinine, or treatment withmedications that affect renal tubular creatinine secretion. Performed By: #### I CA, DDI2, MG3, PHOS3, FERR3, CRP2, HEMDF, LDH3, LFT3, BMP3M ####[id number] [place], [place] GFR/1.73 sq M.predicted among blacks MDRD (S/P/Bld) [Vol rate/Area] mL/min/{1.73_m2} Normal >60 [facility] Comment on above: Performed By: #### I CA, DDI2, MG3, PHOS3, FERR3, CRP2, HEMDF, LDH3, LFT3, BMP3M ####[id number] [place], [place] Chloride [Moles/Vol] 105 mmol/L Normal 98-107 [facility] Comment on above: Performed By: #### I CA, DDI2, MG3, PHOS3, FERR3, CRP2, HEMDF, LDH3, LFT3, BMP3M ####[address] Potassium [Moles/Vol] 4.4 mmol/L Normal 3.5-5.1 [facility] Comment on above: Performed By: #### I CA, DDI2, MG3, PHOS3, FERR3, CRP2, HEMDF, LDH3, LFT3, BMP3M ####[address] Sodium [Moles/Vol] 140 mmol/L Normal 135-145 [facility] Comment on above: Performed By: #### I CA, DDI2, MG3, PHOS3, FERR3, CRP2, HEMDF, LDH3, LFT3, BMP3M ####[address] C-Reactive Proteinon 021 CRP [Mass/Vol] 146.8 mg/L High 0.0-6.0 [facility] Comment on above: Result Comment: . Performed By: #### I CA, DDI2, MG3, PHOS3, FERR3, CRP2, HEMDF, LDH3, LFT3, BMP3M ####[id number] [place], [place] CR Chest Portableon 06-04-20 21 CR Chest Portable Normal [facility] Calcium,Ionizedon 06-04-2021 Ionized Ca,Measured 4.40 mg/dL Normal 4.30-5.20 [facility] Comment on above: Performed By: #### I CA, DDI2, MG3, PHOS3, FERR3, CRP2, HEMDF, LDH3, LFT3, BMP3M ####[id number] [place], [place] pH, Ionized Calcium 7.41 Normal 7.31-7.46 [facility] Comment on above: Performed By: #### I CA, DDI2, MG3, PHOS3, FERR3, CRP2, HEMDF, LDH3, LFT3, BMP3M ####[address] Complete Urinalysison 2020 Appearance (U) Clear Normal Clear [facility] Comment on above: Result Comment: . Performed By: #### N AURR, CUA2, CRTUR, OSMUR ####[address] [address] [place], [place] Bacteria Few Abnormal Negative [facility] Comment on above: Result Comment: . Performed By: #### N AURR, CUA2, CRTUR, OSMUR ####[address] [address] [place] Bilirubin,Urine Negative Normal Negative [facility] Comment on above: Result Comment: . Performed By: #### N AURR, CUA2, CRTUR, OSMUR ####[id number] [place], [place] Color (U) Light-Yellow Normal Lt. Yellow [facility] Comment on above: Result Comment: . Performed By: #### N AURR, CUA2, CRTUR, OSMUR ####[address] Glucose Ql (U) Normal Normal Normal (<70) [facility] Comment on above: Result Comment: . Performed By: #### N AURR, CUA2, CRTUR, OSMUR ####[facility] [place], [place] Ketone,Urine Negative Normal Negative [facility] Comment on above: Result Comment: . Performed By: #### N AURR, CUA2, CRTUR, OSMUR ####[facility] [place] Leukocytes,Urine Negative Normal Negative [facility] Comment on above: Result Comment: . Performed By: #### N AURR, CUA2, CRTUR, OSMUR ####[id number] [place], [place] Mucous Threads Few Normal Negative [facility] Comment on above: Result Comment: . Performed By: #### N AURR, CUA2, CRTUR, OSMUR ####[id number] [place], [place] Nitrites,Urine Negative Normal Negative [facility] Comment on above: Result Comment: . Performed By: #### N AURR, CUA2, CRTUR, OSMUR ####[id number] [place] Occult Blood,Urine 1.0 mg/dL Abnormal Negative [facility] Comment on above: Result Comment: . Performed By: #### N AURR, CUA2, CRTUR, OSMUR ####[id number] [place], [place] pH,Urine 5.5 Normal 5.0-8.0 [facility] Comment on above: Result Comment: . Performed By: #### N AURR, CUA2, CRTUR, OSMUR ####[id number] [place] Protein (U) [Mass/Vol] 30 mg/dL Abnormal Negative [facility] Comment on above: Result Comment: . Performed By: #### N AURR, CUA2, CRTUR, OSMUR ####[id number] [place], [place] RBC, Urine 0 - 2 Normal 0-2 [facility] Comment on above: Result Comment: . Performed By: #### N AURR, CUA2, CRTUR, OSMUR ####[id number] [place], [place] Specific [place],Urine 1.011 Normal 1.005 - 1.030 [facility] Comment on above: Result Comment: . Performed By: #### N AURR, CUA2, CRTUR, OSMUR ####[id number] [place] Squamous Epithelial Negative Normal 3-5 [facility] Comment on above: Result Comment: . Performed By: #### N AURR, CUA2, CRTUR, OSMUR ####[id number] [place], [place] Urobilinogen,Urine Normal Normal Normal (0-1) [facility] Comment on above: Result Comment: . Performed By: #### N AURR, CUA2, CRTUR, OSMUR ####[address] WBC, Urine 0 - 2 Normal 0-5 [facility] Comment on above: Result Comment: . Performed By: #### N AURR, CUA2, CRTUR, OSMUR ####[address] Creatinine, Ur Randomon 07-0 Creatinine, Ur Random 60.1 mg/dL Normal No Range [facility] Comment on above: Performed By: #### N AURR, CUA2, CRTUR, OSMUR ####[address] [place] D-Dimer, Innovanceon 07-06-2 021 D-Dimer, Innovance 7.94 mg/L High <0.19-0.50 [facility] Comment on above: Result Comment: In[place] D-Dimer values of <0.50 mg/L FEU can be used incombination with a pre-test probability model (e.g. Well's)to exclude pulmonary embolism (PE) disease, as well as jodi in the diagnosis of deep vein thrombosis (DVT). Performed By: #### I CA, DDI2, MG3, PHOS3, FERR3, CRP2, HEMDF, LDH3, LFT3, BMP3M ####[id number] [place], [place] Ferritinon 06-04-2021 Ferritin [Mass/Vol] 215 ng/mL Normal 8-252 [facility] Comment on above: Performed By: #### I CA, DDI2, MG3, PHOS3, FERR3, CRP2, HEMDF, LDH3, LFT3, BMP3M ####[id number] [place], [place] Glucose,Bedsideon 06-04-2021 Glucose [Mass/Vol] 193 mg/dL High 70-100 [facility] Comment on above: Result Comment: Test performed by glucose meter. Results may be 10%-15% lowerthan serum/plasma values. (CLIA ID [id number]) Performed By: #### B GLU ####[address] Glucose [Mass/Vol] 195 mg/dL High 70-100 [facility] Comment on above: Result Comment: Test performed by glucose meter. Results may be 10%-15% lowerthan serum/plasma values. (CLIA ID [id number]) Performed By: #### B GLU ####[address] Hemogram w/ Autodiffon 06-04 Abs Baso Cnt 0.0 10*3/uL Normal 0.0-0.2 [facility] Comment on above: Performed By: #### I CA, DDI2, MG3, PHOS3, FERR3, CRP2, HEMDF, LDH3, LFT3, BMP3M ####[id number] [place], [place] Abs Neutrophile Cnt 4.8 10*3/uL Normal 1.8-7.0 [facility] Comment on above: Performed By: #### I CA, DDI2, MG3, PHOS3, FERR3, CRP2, HEMDF, LDH3, LFT3, BMP3M ####[address] [place], [place] Basophils/100 WBC (Bld) 0.2 % Normal 0.0-2.0 [facility] Comment on above: Performed By: #### I CA, DDI2, MG3, PHOS3, FERR3, CRP2, HEMDF, LDH3, LFT3, BMP3M ####[address] Eosinophils (Bld) [#/Vol] 0.0 10*3/uL Normal 0.0-0.5 [facility] Comment on above: Performed By: #### I CA, DDI2, MG3, PHOS3, FERR3, CRP2, HEMDF, LDH3, LFT3, BMP3M ####[address] Eosinophils/100 WBC (Bld) 0.0 % Low 1.0-6.0 [facility] Comment on above: Performed By: #### I CA, DDI2, MG3, PHOS3, FERR3, CRP2, HEMDF, LDH3, LFT3, BMP3M ####[address] Erythrocyte distribution width (RBC) [Ratio] 19.8 % High 11.5-14.5 [facility] Comment on above: Performed By: #### I CA, DDI2, MG3, PHOS3, FERR3, CRP2, HEMDF, LDH3, LFT3, BMP3M ####[address] Granulocytes/100 WBC (Bld) 85.7 % High 40.0-80.0 [facility] Comment on above: Performed By: #### I CA, DDI2, MG3, PHOS3, FERR3, CRP2, HEMDF, LDH3, LFT3, BMP3M ####[address] Hematocrit (Bld) [Volume fraction] 37.6 % Normal 35.0-47.0 [facility] Comment on above: Performed By: #### I CA, DDI2, MG3, PHOS3, FERR3, CRP2, HEMDF, LDH3, LFT3, BMP3M ####[address] Hemoglobin (Bld) [Mass/Vol] 12.0 g/dL Normal 11.7-16.0 [facility] Comment on above: Performed By: #### I CA, DDI2, MG3, PHOS3, FERR3, CRP2, HEMDF, LDH3, LFT3, BMP3M ####[address] Lymphocytes (Bld) [#/Vol] 0.4 10*3/uL Low 1.0-4.3 [facility] Comment on above: Performed By: #### I CA, DDI2, MG3, PHOS3, FERR3, CRP2, HEMDF, LDH3, LFT3, BMP3M ####[address] Lymphocytes/100 WBC (Bld) 6.5 % Low 20.0-40.0 [facility] Comment on above: Performed By: #### I CA, DDI2, MG3, PHOS3, FERR3, CRP2, HEMDF, LDH3, LFT3, BMP3M ####[id number] [place], [place] MCH (RBC) [Entitic mass] 22.6 pg Low 26.0-34.0 [facility] Comment on above: Performed By: #### I CA, DDI2, MG3, PHOS3, FERR3, CRP2, HEMDF, LDH3, LFT3, BMP3M ####[id number] [place], [place] MCHC 31.8 % Low 32.0-36.0 [facility] Comment on above: Performed By: #### I CA, DDI2, MG3, PHOS3, FERR3, CRP2, HEMDF, LDH3, LFT3, BMP3M ####[id number] [place], [place] MCV (RBC) [Entitic vol] 71.0 fL Low 79.0-98.0 [facility] Comment on above: Performed By: #### I CA, DDI2, MG3, PHOS3, FERR3, CRP2, HEMDF, LDH3, LFT3, BMP3M ####[id number] [place], [place] Monocytes (Bld) [#/Vol] 0.4 10*3/uL Normal 0.0-0.8 [facility] Comment on above: Performed By: #### I CA, DDI2, MG3, PHOS3, FERR3, CRP2, HEMDF, LDH3, LFT3, BMP3M ####[id number] [place], [place] Monocytes/100 WBC (Bld) 7.6 % Normal 2.0-10.0 [facility] Comment on above: Performed By: #### I CA, DDI2, MG3, PHOS3, FERR3, CRP2, HEMDF, LDH3, LFT3, BMP3M ####[address] Platelet mean volume (Bld) [Entitic vol] 8.6 fL Normal 7.4-10.4 [facility] Comment on above: Performed By: #### I CA, DDI2, MG3, PHOS3, FERR3, CRP2, HEMDF, LDH3, LFT3, BMP3M ####[address] Platelets (Bld) [#/Vol] 204 10*3/uL Normal 140-440 [facility] Comment on above: Performed By: #### I CA, DDI2, MG3, PHOS3, FERR3, CRP2, HEMDF, LDH3, LFT3, BMP3M ####[address] RBC (Bld) [#/Vol] 5.30 10*6/uL High 3.80-5.20 [facility] Comment on above: Performed By: #### I CA, DDI2, MG3, PHOS3, FERR3, CRP2, HEMDF, LDH3, LFT3, BMP3M ####[address] WBC (Bld) [#/Vol] 5.6 10*3/uL Normal 3.6-10.7 [facility] Comment on above: Performed By: #### I CA, DDI2, MG3, PHOS3, FERR3, CRP2, HEMDF, LDH3, LFT3, BMP3M ####[address] Hepatic Functionon 1 ALP [Catalytic activity/Vol] 100 U/L Normal 38-126 [facility] Comment on above: Performed By: #### I CA, DDI2, MG3, PHOS3, FERR3, CRP2, HEMDF, LDH3, LFT3, BMP3M ####[id number] [place], [place] ALT [Catalytic activity/Vol] 40 U/L High 0-34 [facility] Comment on above: Result Comment: The ALT test is performed by an updated assay method.Please note that the reference intervals have beenchanged and are now sex specific. Performed By: #### I CA, DDI2, MG3, PHOS3, FERR3, CRP2, HEMDF, LDH3, LFT3, BMP3M ####[id number] [place], [place] AST [Catalytic activity/Vol] 78 U/L High 15-46 [facility] Comment on above: Performed By: #### I CA, DDI2, MG3, PHOS3, FERR3, CRP2, HEMDF, LDH3, LFT3, BMP3M ####[address] Bilirubin [Mass/Vol] 0.3 mg/dL Normal 0.2-1.3 [facility] Comment on above: Performed By: #### I CA, DDI2, MG3, PHOS3, FERR3, CRP2, HEMDF, LDH3, LFT3, BMP3M ####[address], [place] Bilirubin.indirect [Mass/Vol] 0.0 mg/dL Normal 0.0-0.3 [facility] Comment on above: Performed By: #### I CA, DDI2, MG3, PHOS3, FERR3, CRP2, HEMDF, LDH3, LFT3, BMP3M ####[address] Protein [Mass/Vol] 6.7 g/dL Normal 6.3-8.2 [facility] Comment on above: Performed By: #### I CA, DDI2, MG3, PHOS3, FERR3, CRP2, HEMDF, LDH3, LFT3, BMP3M ####[address] Albumin [Mass/Vol] 3.2 g/dL Low 3.5-5.0 [facility] Comment on above: Performed By: #### I CA, DDI2, MG3, PHOS3, FERR3, CRP2, HEMDF, LDH3, LFT3, BMP3M ####[address] LDHon 06-04-2021 LDH 576 U/L High 120-246 [facility] Comment on above: Performed By: #### I CA, DDI2, MG3, PHOS3, FERR3, CRP2, HEMDF, LDH3, LFT3, BMP3M ####[address] LEGIONELLA AG, URINEon 06-04 LEGIONELLA AG, URINE LEGIONELLA AG, URIN E --> Status: F Legionella antigen NOT DETECTED. Normal [facility] Comment on above: Performed By: #### TRINI DOHERTY ####[address] Magnesiumon 06-04-2021 Magnesium [Mass/Vol] 2.1 mg/dL Normal 1.6-2.3 [facility] Comment on above: Performed By: #### I CA, DDI2, MG3, PHOS3, FERR3, CRP2, HEMDF, LDH3, LFT3, BMP3M ####[facility] [place] [address] Osmolality,Urineon Osmolality,Urine 335 mosm/kg Normal 300-1000 [facility] Comment on above: Performed By: #### N AURR, CUA2, CRTUR, OSMUR ####[id number] [place], [place] PNEUMONIA PCR PANELon 2020 PNEUMONIA PCR PANEL Normal [facility] Comment on above: Performed By: #### B FPNE ####[id number] [place], [place] Phosphoruson 06-04-2021 Phosphate [Mass/Vol] 3.5 mg/dL Normal 2.5-4.5 [facility] Comment on above: Performed By: #### I CA, DDI2, MG3, PHOS3, FERR3, CRP2, HEMDF, LDH3, LFT3, BMP3M ####[id number] [place] STAIN GRAMon 06-04-2021 STAIN GRAM Normal [facility] Comment on above: Performed By: #### S /GRM, CS/RE ####[id number] [place], [place] STREP PNEUMO ANTIGEN, URINEo n 06-04-2021 STREP PNEUMO ANTIGEN, URINE STREP PNEUMO ANTIGEN, URINE --> Status: F Strep pneumo antigen NOT DETECTED. Normal [facility] Comment on above: Performed By: #### S PAUR, LEGUR ####[facility] [place], [place] Sodium, Ur Randomon 06-04-20 21 Sodium [Moles/Vol] 8 mmol/L Low 30-90 [facility] Comment on above: Performed By: #### N AURR, CUA2, CRTUR, OSMUR ####[id number] [place] Transferrinon 06-04-2021 Transferrin [Mass/Vol] 277 mg/dL Normal 206-381 [facility] Comment on above: Performed By: #### C ORTL, QTF, DDI2, PT, CK3, ICA, FEIBC, LIPD2, TROPN, LACT3, MG3, FERR3, HA1C2, APTT, BNP3, PHOS3, PCAL, HEMDF, CRP2, LDH3, BMP3M, TSH5 ####[facility] [address] [place] [address]#### TRFN, [id number] ####[address] [place] [address] VL Venous Duplex US Lower Ex t Bilateralon 06-04-2021 VL Venous Duplex US Lower Ext Bilateral Normal [facility] Vit D 25-OH, Totalon 021 Vit D 25-OH, Total 19 ng/mL Low 30-100 [facility] Comment on above: Result Comment: Ther apy is based on measurement of Total 25- OHD with thefollowing classification levels:Less than 20 ng/mL: Indicative of Vit D -47 ng/mL: Suggests Vit D insufficiencyOptimal: Greater than or equal to 30 ng/mLTest performed by [employer] Competitive Immunoassay,measuring Total Vitamin D, not individual fractions. Performed By: #### C ORTL, QTF, DDI2, PT, CK3, ICA, FEIBC, LIPD2, TROPN, LACT3, MG3, FERR3, HA1C2, APTT, BNP3, PHOS3, PCAL, HEMDF, CRP2, LDH3, BMP3M, TSH5 ####[facility] [address] [place], [place] #### TRFN, [id number] ####[facility] [employer] [address] [place] [address] APTTon 06-03-2021 aPTT Coag (Bld) [Time] 26.2 s Normal 20.0-30.5 [facility] Comment on above: Result Comment: NOTE : The therapeutic time for Heparin anticoagulation,based on Xa activity inhibition, is an APTT of 46-80seconds. Performed By: #### C ORTL, QTF, DDI2, PT, CK3, ICA, FEIBC, LIPD2, TROPN, LACT3, MG3, FERR3, HA1C2, APTT, BNP3, PHOS3, PCAL, HEMDF, CRP2, LDH3, BMP3M, TSH5 ####[facility] [place], [place] #### TRFN, [id number] ####[facility] [facility] [place] [address] Arterial Blood Gaseson 06-03 CO2 [Moles/Vol] 27.6 mmol/L High 23.0-27.0 [facility] Comment on above: Performed By: #### A BG ####[facility] [place], [place] HCO3 (Bld) [Moles/Vol] 26.5 mmol/L High 21.0-25.0 [facility] Comment on above: Performed By: #### A BG ####[address] Hemoglobin (Bld) [Mass/Vol] 12.8 g/dL Normal ScreenOnly [facility] Comment on above: Performed By: #### A BG ####[facility] [place], [place] Oxygen (Bld) [Partial pressure] 72.2 mm[Hg] Low 80.0-100.0 [facility] Comment on above: Performed By: #### A BG ####[id number] [place], [place] Oxygen saturation in Blood 93.7 % Low 95.0-100.0 [facility] Comment on above: Performed By: #### A BG ####[facility] [place], [place] pCO2 38.0 mm[Hg] Normal 35.0-45.0 [facility] Comment on above: Performed By: #### A BG ####[id number] [place], [place] pH 7.461 High 7.350-7.450 [facility] Comment on above: Performed By: #### A BG ####[address] Std Base Excess 2.7 mmol/L Normal -3.0-3.0 [facility] Comment on above: Performed By: #### A BG ####[address] FIO2 100% Normal [facility] Comment on above: Performed By: #### A BG ####[address] Basic Metabolic Panelon 07-0 -2020 Anion gap [Moles/Vol] 7 mmol/L Normal 3-13 [facility] Comment on above: Performed By: #### C ORTL, QTF, DDI2, PT, CK3, ICA, FEIBC, LIPD2, TROPN, LACT3, MG3, FERR3, HA1C2, APTT, BNP3, PHOS3, PCAL, HEMDF, CRP2, LDH3, BMP3M, TSH5 ####[address] #### OZIEL [id number] ####[facility] [place] [address] Calcium [Mass/Vol] 8.5 mg/dL Normal 8.4-10.4 [facility] Comment on above: Performed By: #### C ORTL, QTF, DDI2, PT, CK3, ICA, FEIBC, LIPD2, TROPN, LACT3, MG3, FERR3, HA1C2, APTT, BNP3, PHOS3, PCAL, HEMDF, CRP2, LDH3, BMP3M, TSH5 ####[id number] [place], [place] #### TRFN, [id number] ####[facility] [place] [address] CO2 [Moles/Vol] 27 mmol/L Normal 22-30 [facility] Comment on above: Performed By: #### C ORTL, QTF, DDI2, PT, CK3, ICA, FEIBC, LIPD2, TROPN, LACT3, MG3, FERR3, HA1C2, APTT, BNP3, PHOS3, PCAL, HEMDF, CRP2, LDH3, BMP3M, TSH5 ####[address] #### OZIEL [id number] ####[address] [place] [address] Glucose [Mass/Vol] 140 mg/dL High 70-100 [facility] Comment on above: Performed By: #### C ORTL, QTF, DDI2, PT, CK3, ICA, FEIBC, LIPD2, TROPN, LACT3, MG3, FERR3, HA1C2, APTT, BNP3, PHOS3, PCAL, HEMDF, CRP2, LDH3, BMP3M, TSH5 ####[address] #### OZIEL VD25H ####[address] [address] Urea nitrogen [Mass/Vol] 13 mg/dL Normal 7-20 [facility] Comment on above: Performed By: #### C ORTL, QTF, DDI2, PT, CK3, ICA, FEIBC, LIPD2, TROPN, LACT3, MG3, FERR3, HA1C2, APTT, BNP3, PHOS3, PCAL, HEMDF, CRP2, LDH3, BMP3M, TSH5 ####[address] #### OZIEL VD25H ####[address] [address] Creatinine [Mass/Vol] 0.54 mg/dL Normal 0.52-1.25 [facility] Comment on above: Performed By: #### C ORTL, QTF, DDI2, PT, CK3, ICA, FEIBC, LIPD2, TROPN, LACT3, MG3, FERR3, HA1C2, APTT, BNP3, PHOS3, PCAL, HEMDF, CRP2, LDH3, BMP3M, TSH5 ####[id number] [place] [address]#### OZIEL VD25H ####[address] [address] eGFR OTHER > 90.0 Normal >60 [facility] Comment on above: Result Comment: KDIG O guidelines provide the following GFR categories:Stage GFR(ml/min/1.73 m2) TermsG1 >=90 Normal or highG2 60-89 Mildly decreased*G3a 45-59 Mildly to moderately [id number] 30-44 Moderately to severely decreasedG4 15-29 Severely decreasedG5 <15 Kidney failure*Relative to young adult level.In the absence of evidence of kidney damage, neither GFRcategory G1 nor G2 fulfill the criteria for CKD.The CKD-EPI equation is validated in individuals 18 yearsof age and older. Currently the best equation forestimating glomerular filtration rate (GFR) from serumcreatinine in children is the Bedside Arechiga equation.It is less accurate in patients with extremes of musclemass, restriction of dietary protein, ingestion of creatine,extra-renal metabolism of creatinine, or treatment withmedications that affect renal tubular creatinine secretion. Performed By: #### C ORTL, QTF, DDI2, PT, CK3, ICA, FEIBC, LIPD2, TROPN, LACT3, MG3, FERR3, HA1C2, APTT, BNP3, PHOS3, PCAL, HEMDF, CRP2, LDH3, BMP3M, TSH5 ####[facility] [employer] [address] [address]#### OZIEL VD25H ####[address] [address] GFR/1.73 sq M.predicted among blacks MDRD (S/P/Bld) [Vol rate/Area] mL/min/{1.73_m2} Normal >60 [facility] Comment on above: Performed By: #### C ORTL, QTF, DDI2, PT, CK3, ICA, FEIBC, LIPD2, TROPN, LACT3, MG3, FERR3, HA1C2, APTT, BNP3, PHOS3, PCAL, HEMDF, CRP2, LDH3, BMP3M, TSH5 ####[address] #### CADET25H ####[place] [address] [place] [address] Chloride [Moles/Vol] 106 mmol/L Normal 98-107 [facility] Comment on above: Performed By: #### C ORTL, QTF, DDI2, PT, CK3, ICA, FEIBC, LIPD2, TROPN, LACT3, MG3, FERR3, HA1C2, APTT, BNP3, PHOS3, PCAL, HEMDF, CRP2, LDH3, BMP3M, TSH5 ####[address] #### CADET25H ####[address] [place] [address] Potassium [Moles/Vol] 4.3 mmol/L Normal 3.5-5.1 [facility] Comment on above: Performed By: #### C ORTL, QTF, DDI2, PT, CK3, ICA, FEIBC, LIPD2, TROPN, LACT3, MG3, FERR3, HA1C2, APTT, BNP3, PHOS3, PCAL, HEMDF, CRP2, LDH3, BMP3M, TSH5 ####[address] #### CADET25H ####[address] [place] [address] Sodium [Moles/Vol] 140 mmol/L Normal 135-145 [facility] Comment on above: Performed By: #### C ORTL, QTF, DDI2, PT, CK3, ICA, FEIBC, LIPD2, TROPN, LACT3, MG3, FERR3, HA1C2, APTT, BNP3, PHOS3, PCAL, HEMDF, CRP2, LDH3, BMP3M, TSH5 ####[address] #### CADET25H ####[facility] [place] [address] C REACTIVE PROTEINon 021 CRP [Mass/Vol] 181.1 mg/L High 0-10.0 [facility] Comment on above: Performed By: #### P T, CREACT, ESR, CMPF, HH, MG #### Testing performed at [facility] [address] [place] [address] C REACTIVE PROTEINOrdered By : Flash De La Rosa on 06-03-2021 CRP [Mass/Vol] 181.1 mg/L High 0 - 10.0 MG/L [facility] C-Reactive Proteinon 021 CRP [Mass/Vol] 158.7 mg/L High 0.0-6.0 [facility] Comment on above: Result Comment: . Performed By: #### C ORTL, QTF, DDI2, PT, CK3, ICA, FEIBC, LIPD2, TROPN, LACT3, MG3, FERR3, HA1C2, APTT, BNP3, PHOS3, PCAL, HEMDF, CRP2, LDH3, BMP3M, TSH5 ####[facility] [employer] [address] #### CADET25H ####[place] [place] [address] CKon 06-03-2021 CK [Catalytic activity/Vol] 160 U/L Normal 30-170 [facility] Comment on above: Performed By: #### C ORTL, QTF, DDI2, PT, CK3, ICA, FEIBC, LIPD2, TROPN, LACT3, MG3, FERR3, HA1C2, APTT, BNP3, PHOS3, PCAL, HEMDF, CRP2, LDH3, BMP3M, TSH5 ####[facility] [employer] [id number] [place], [place] #### OZIEL VD25H ####[place] [address] [place] [address] CMP FASTINGon 06-03-2021 A:G RATIO 0.7 RATIO Low 1.3-2.2 [facility] Comment on above: Performed By: #### P T, CREACT, ESR, CMPF, HH, MG #### Testing performed at [address] [address] ALBUMIN 2.9 G/dl Low 3.5-5.0 [facility] Comment on above: Performed By: #### P T, CREACT, ESR, CMPF, HH, MG #### Testing performed at [address] [address] ALP [Catalytic activity/Vol] 74 U/L Normal 38-126 [facility] Comment on above: Performed By: #### P T, CREACT, ESR, CMPF, HH, MG #### Testing performed at [address] [address] ALT [Catalytic activity/Vol] 37 U/L Normal 14-54 [facility] Comment on above: Performed By: #### P T, CREACT, ESR, CMPF, HH, MG #### Testing performed at [address] [address] AST [Catalytic activity/Vol] 58 U/L High 15-41 [facility] Comment on above: Performed By: #### P T, CREACT, ESR, CMPF, HH, MG #### Testing performed at [address] [address] Bilirubin [Mass/Vol] 0.3 mg/dL Normal 0.2-1.2 [facility] Comment on above: Performed By: #### P T, CREACT, ESR, CMPF, HH, MG #### Testing performed at [address] [address] Calcium [Mass/Vol] 8.2 mg/dL Low 8.4-10.2 [facility] Comment on above: Performed By: #### P T, CREACT, ESR, CMPF, HH, MG #### Testing performed at [address] [address] Chloride [Moles/Vol] 103 mmol/L Normal 98-107 [facility] Comment on above: Performed By: #### P T, CREACT, ESR, CMPF, HH, MG #### Testing performed at [address] [address] CO2 [Moles/Vol] 24 mmol/L Normal 22-30 [facility] Comment on above: Performed By: #### P T, CREACT, ESR, CMPF, HH, MG #### Testing performed at [address] [address] Creatinine [Mass/Vol] 0.71 mg/dL Normal 0.52-1.04 [facility] Comment on above: Performed By: #### P T, CREACT, ESR, CMPF, HH, MG #### Testing performed at [address] [address] EST. GFR, >60 Normal [facility] Comment on above: Performed By: #### P T, CREACT, ESR, CMPF, HH, MG #### Testing performed at [address] [address] EST. GFR,Non >60 Normal [facility] Comment on above: Performed By: #### P T, CREACT, ESR, CMPF, HH, MG #### Testing performed at [address] [address] GFR Information Average GFR for 50-5 9 years old = 93. Normal [facility] Comment on above: Result Comment: Knowledge Management Consultant randi Kidney disease, GFR = <60. Kidney failure, GFR = <15. The GFR estimate is not adjusted for extreme body surface area or acute process, nor has it been validated for women or ethnic groups other than and . Performed By: #### P T, CREACT, ESR, CMPF, HH, MG #### Testing performed at [address] [address] Glucose [Mass/Vol] 153 mg/dL High 70-100 [facility] Comment on above: Result Comment: NORMAL <100 mg/dL PREDIABETES 101-126 mg/dL DIABETES 126 mg/dL or higher Performed By: #### P T, CREACT, ESR, CMPF, HH, MG #### Testing performed at [address] [address] Potassium [Moles/Vol] 4.3 mmol/L Normal 3.5-5.1 [facility] Comment on above: Performed By: #### P T, CREACT, ESR, CMPF, HH, MG #### Testing performed at [address] [address] Protein [Mass/Vol] 7.3 g/dL Normal 6.3-8.2 [facility] Comment on above: Performed By: #### P T, CREACT, ESR, CMPF, HH, MG #### Testing performed at [address] [address] Sodium [Moles/Vol] 138 mmol/L Normal 136-145 [facility] Comment on above: Performed By: #### P T, CREACT, ESR, CMPF, HH, MG #### Testing performed at [address] [address] Urea nitrogen [Mass/Vol] 13 mg/dL Normal 7-20 [facility] Comment on above: Performed By: #### P T, CREACT, ESR, CMPF, HH, MG #### Testing performed at [address] [address] COMPREHENSIVE METABOLIC PANE LOrdered By: Flash De La Rosa on 06-03-2021 Albumin [Mass/Vol] 2.9 G/dl Low 3.5 - 5.0 G/dl [facility] Albumin/Globulin [Mass ratio] 0.7 {ratio} Low [facility] ALP [Catalytic activity/Vol] 74 U/L [facility] ALT [Catalytic activity/Vol] 37 U/L [facility] AST [Catalytic activity/Vol] 58 U/L High [facility] Bilirubin [Mass/Vol] 0.3 mg/dL [facility] Calcium [Mass/Vol] 8.2 mg/dL Low [facility] Chloride [Moles/Vol] 103 mmol/L [facility] CO2 [Moles/Vol] 24 mmol/L [facility] Creatinine [Mass/Vol] 0.71 mg/dL [facility] GFR COMMENT Average GFR for 50-5 9 years old = 93. [facility] Comment on above: Chronic Kidney disea se, GFR = <60. Kidney failure, GFR = <15. The GFR estimate is not adjusted for extreme body surface area or acute process, nor has it been validated for women or ethnic groups other than and . GFR/1.73 sq M.predicted among blacks MDRD (S/P/Bld) [Vol rate/Area] mL/min/{1.73_m2} ml/min/1.73s q.m [facility] GFR/1.73 sq M.predicted among non-blacks MDRD (S/P/Bld) [Vol rate/Area] mL/min/{1.73_m2} ml/min/1.73s q.m [facility] Glucose post fast [Mass/Vol] 153 mg/dL High [facility] Comment on above: NORMAL <100 mg/dL PREDIABETES 101-126 mg/dL DIABETES 126 mg/dL or higher Potassium [Moles/Vol] 4.3 mmol/L [facility] Protein [Mass/Vol] 7.3 g/dL [facility] Sodium [Moles/Vol] 138 mmol/L [facility] Urea nitrogen [Mass/Vol] 13 mg/dL [facility] CR Chest Portableon 06-03-20 CR Chest Portable Normal [facility] Calcium,Ionizedon 06-03-2021 Ionized Ca,Measured 3.90 mg/dL Low 4.30-5.20 [facility] Comment on above: Performed By: #### C ORTL, QTF, DDI2, PT, CK3, ICA, FEIBC, LIPD2, TROPN, LACT3, MG3, FERR3, HA1C2, APTT, BNP3, PHOS3, PCAL, HEMDF, CRP2, LDH3, BMP3M, TSH5 ####[facility] [employer] [address] [place] [address]#### TRFN, VD25H ####[facility] [employer] [address] [place] [address] pH, Ionized Calcium 7.40 Normal 7.31-7.46 [facility] Comment on above: Performed By: #### C ORTL, QTF, DDI2, PT, CK3, ICA, FEIBC, LIPD2, TROPN, LACT3, MG3, FERR3, HA1C2, APTT, BNP3, PHOS3, PCAL, HEMDF, CRP2, LDH3, BMP3M, TSH5 ####[facility] [employer] [id number] [place], [place] #### CADET25H ####[facility] [employer] [id number] [place] [address] Cortisolon 06-03-2021 Cortisol 4.5 ug/dL Normal [facility] Comment on above: Result Comment: Befo re 10am 4.5-22.7 ug/dLAfter 5pm 1.7-14.1 ug/dL Performed By: #### C ORTL, QTF, DDI2, PT, CK3, ICA, FEIBC, LIPD2, TROPN, LACT3, MG3, FERR3, HA1C2, APTT, BNP3, PHOS3, PCAL, HEMDF, CRP2, LDH3, BMP3M, TSH5 ####[facility] [employer] [address] #### CADET25H ####[facility] [employer] [address] [place] [address] D-Dimer, Innovanceon 021 D-Dimer, Innovance 3.88 mg/L High <0.19-0.50 [facility] Comment on above: Result Comment: Inno carrington D-Dimer values of <0.50 mg/L FEU can be used incombination with a pre-test probability model (e.g. Well's)to exclude pulmonary embolism (PE) disease, as well as jodi in the diagnosis of deep vein thrombosis (DVT). Performed By: #### C ORTL, QTF, DDI2, PT, CK3, ICA, FEIBC, LIPD2, TROPN, LACT3, MG3, FERR3, HA1C2, APTT, BNP3, PHOS3, PCAL, HEMDF, CRP2, LDH3, BMP3M, TSH5 ####[facility] [employer] [address] #### OZIEL, VD25H ####[facility] [employer] [id number] [place] [address] ESRon 06-03-2021 ESR (Bld) [Velocity] 51 mm/h High 0-30 [facility] Comment on above: Performed By: #### U MAC, UMIC #### Testing performed at [address] [address] Ferritinon 06-03-2021 Ferritin [Mass/Vol] 216 ng/mL Normal 8-252 [facility] Comment on above: Performed By: #### C ORTL, QTF, DDI2, PT, CK3, ICA, FEIBC, LIPD2, TROPN, LACT3, MG3, FERR3, HA1C2, APTT, BNP3, PHOS3, PCAL, HEMDF, CRP2, LDH3, BMP3M, TSH5 ####[facility] [place] [address]#### TRFN, VD25H ####[facility] [place] [address] HEMOGLOBIN & HEMATOCRITOrder ed By: Flash De La Rosa on 06-03-2021 Hematocrit (Bld) [Volume fraction] 35.8 % Low 36.0 - 48.0 % [facility] Hemoglobin (Bld) [Mass/Vol] 11.5 g/dL Low [facility] Interpretation and review of laboratory results Abnormal [facility] Hematocrit (Bld) [Volume fraction] 35.6 % Low 36.0 - 48.0 % [facility] Hemoglobin (Bld) [Mass/Vol] 11.3 g/dL Low [facility] Interpretation and review of laboratory results Abnormal [facility] HGB/HCTon 06-03-2021 Hematocrit (Bld) [Volume fraction] 35.8 % Low 36.0-48.0 [facility] Comment on above: Performed By: #### U MAC, UMIC #### Testing performed at [address] [address] Hemoglobin (Bld) [Mass/Vol] 11.5 g/dL Low 12.0-16.0 [facility] Comment on above: Performed By: #### U MAC, UMIC #### Testing performed at [address] [address] Hematocrit (Bld) [Volume fraction] 35.6 % Low 36.0-48.0 [facility] Comment on above: Performed By: #### U MAC, [facility] #### Testing performed at [address] [address] Hemoglobin (Bld) [Mass/Vol] 11.3 g/dL Low 12.0-16.0 [facility] Comment on above: Performed By: #### U MAC, [facility] #### Testing performed at [address] [address] Hemoglobin A1Con 06-03-2021 Glucose [Mass/Vol] 128 mg/dL Normal [facility] Comment on above: Performed By: #### C ORTL, QTF, DDI2, PT, CK3, ICA, FEIBC, LIPD2, TROPN, LACT3, MG3, FERR3, HA1C2, APTT, BNP3, PHOS3, PCAL, HEMDF, CRP2, LDH3, BMP3M, TSH5 ####[facility] [employer] [place], [place] #### OZIEL VD25 ####[facility] Center[facility], [facility] [place] [address] HbA1c (Bld) [Mass fraction] 6.1 % Abnormal [facility] Comment on above: Result Comment: Norm al less than 5.7%Prediabetes 5.7% to 6.4%Diabetes 6.5% or higher--HgbA1C levels may not be accurate in patients who haverenal disease, received recent blood transfusions, are anemic,or who have dyshemoglobinemia. Performed By: #### C ORTL, QTF, DDI2, PT, CK3, ICA, FEIBC, LIPD2, TROPN, LACT3, MG3, FERR3, HA1C2, APTT, BNP3, PHOS3, PCAL, HEMDF, CRP2, LDH3, BMP3M, TSH5 ####[facility] Center[facility], [employer] [place] [address] #### OZIEL VD25H ####[facility] Center[facility] [id number] [place] [address] Hemogram w/ Autodiffon 06-03 Abs Baso Cnt 0.0 10*3/uL Normal 0.0-0.2 [facility] Comment on above: Performed By: #### C ORTL, QTF, DDI2, PT, CK3, ICA, FEIBC, LIPD2, TROPN, LACT3, MG3, FERR3, HA1C2, APTT, BNP3, PHOS3, PCAL, HEMDF, CRP2, LDH3, BMP3M, TSH5 ####[address] #### OZIEL VD25H ####[address] [place] [address] Abs Neutrophile Cnt 2.4 10*3/uL Normal 1.8-7.0 [facility] Comment on above: Performed By: #### C ORTL, QTF, DDI2, PT, CK3, ICA, FEIBC, LIPD2, TROPN, LACT3, MG3, FERR3, HA1C2, APTT, BNP3, PHOS3, PCAL, HEMDF, CRP2, LDH3, BMP3M, TSH5 ####[address] #### OZIEL VD25H ####[address] [place] [address] Basophils/100 WBC (Bld) 0.1 % Normal 0.0-2.0 [facility] Comment on above: Performed By: #### C ORTL, QTF, DDI2, PT, CK3, ICA, FEIBC, LIPD2, TROPN, LACT3, MG3, FERR3, HA1C2, APTT, BNP3, PHOS3, PCAL, HEMDF, CRP2, LDH3, BMP3M, TSH5 ####[address] #### OZIEL, VD25H ####[address] [place] [address] Eosinophils (Bld) [#/Vol] 0.0 10*3/uL Normal 0.0-0.5 [facility] Comment on above: Performed By: #### C ORTL, QTF, DDI2, PT, CK3, ICA, FEIBC, LIPD2, TROPN, LACT3, MG3, FERR3, HA1C2, APTT, BNP3, PHOS3, PCAL, HEMDF, CRP2, LDH3, BMP3M, TSH5 ####[address] #### CADET25H ####[address] [place] [address] Eosinophils/100 WBC (Bld) 0.0 % Low 1.0-6.0 [facility] Comment on above: Performed By: #### C ORTL, QTF, DDI2, PT, CK3, ICA, FEIBC, LIPD2, TROPN, LACT3, MG3, FERR3, HA1C2, APTT, BNP3, PHOS3, PCAL, HEMDF, CRP2, LDH3, BMP3M, TSH5 ####[address] #### OZIEL VD25H ####[address] [place] [address] Erythrocyte distribution width (RBC) [Ratio] 19.9 % High 11.5-14.5 [facility] Comment on above: Performed By: #### C ORTL, QTF, DDI2, PT, CK3, ICA, FEIBC, LIPD2, TROPN, LACT3, MG3, FERR3, HA1C2, APTT, BNP3, PHOS3, PCAL, HEMDF, CRP2, LDH3, BMP3M, TSH5 ####[address] #### OZIEL VD25H ####[address] [place] [address] Granulocytes/100 WBC (Bld) 80.0 % Normal 40.0-80.0 [facility] Comment on above: Performed By: #### C ORTL, QTF, DDI2, PT, CK3, ICA, FEIBC, LIPD2, TROPN, LACT3, MG3, FERR3, HA1C2, APTT, BNP3, PHOS3, PCAL, HEMDF, CRP2, LDH3, BMP3M, TSH5 ####[address] #### OZIEL, VD25H ####[address] [place] [address] Hematocrit (Bld) [Volume fraction] 37.4 % Normal 35.0-47.0 [facility] Comment on above: Performed By: #### C ORTL, QTF, DDI2, PT, CK3, ICA, FEIBC, LIPD2, TROPN, LACT3, MG3, FERR3, HA1C2, APTT, BNP3, PHOS3, PCAL, HEMDF, CRP2, LDH3, BMP3M, TSH5 ####[address] #### OZIEL, VD25H ####[address] [address] Hemoglobin (Bld) [Mass/Vol] 11.8 g/dL Normal 11.7-16.0 [facility] Comment on above: Performed By: #### C ORTL, QTF, DDI2, PT, CK3, ICA, FEIBC, LIPD2, TROPN, LACT3, MG3, FERR3, HA1C2, APTT, BNP3, PHOS3, PCAL, HEMDF, CRP2, LDH3, BMP3M, TSH5 ####[address] #### OZIEL, VD25H ####[address] [address] Lymphocytes (Bld) [#/Vol] 0.3 10*3/uL Low 1.0-4.3 [facility] Comment on above: Performed By: #### C ORTL, QTF, DDI2, PT, CK3, ICA, FEIBC, LIPD2, TROPN, LACT3, MG3, FERR3, HA1C2, APTT, BNP3, PHOS3, PCAL, HEMDF, CRP2, LDH3, BMP3M, TSH5 ####[address] #### CADET25H ####[address] [place] [address] Lymphocytes/100 WBC (Bld) 10.0 % Low 20.0-40.0 [facility] Comment on above: Performed By: #### C ORTL, QTF, DDI2, PT, CK3, ICA, FEIBC, LIPD2, TROPN, LACT3, MG3, FERR3, HA1C2, APTT, BNP3, PHOS3, PCAL, HEMDF, CRP2, LDH3, BMP3M, TSH5 ####[address] #### CADET25H ####[address] [place] [address] MCH (RBC) [Entitic mass] 22.6 pg Low 26.0-34.0 [facility] Comment on above: Performed By: #### C ORTL, QTF, DDI2, PT, CK3, ICA, FEIBC, LIPD2, TROPN, LACT3, MG3, FERR3, HA1C2, APTT, BNP3, PHOS3, PCAL, HEMDF, CRP2, LDH3, BMP3M, TSH5 ####[address] #### CADET25H ####[address] [place] [address] MCHC 31.6 % Low 32.0-36.0 [facility] Comment on above: Performed By: #### C ORTL, QTF, DDI2, PT, CK3, ICA, FEIBC, LIPD2, TROPN, LACT3, MG3, FERR3, HA1C2, APTT, BNP3, PHOS3, PCAL, HEMDF, CRP2, LDH3, BMP3M, TSH5 ####[address] #### CADET25H ####[facility] [facility] [place] [address] MCV (RBC) [Entitic vol] 71.5 fL Low 79.0-98.0 [facility] Comment on above: Performed By: #### C ORTL, QTF, DDI2, PT, CK3, ICA, FEIBC, LIPD2, TROPN, LACT3, MG3, FERR3, HA1C2, APTT, BNP3, PHOS3, PCAL, HEMDF, CRP2, LDH3, BMP3M, TSH5 ####[address] #### OZIEL VD25H ####[address] [place] [address] Monocytes (Bld) [#/Vol] 0.3 10*3/uL Normal 0.0-0.8 [facility] Comment on above: Performed By: #### C ORTL, QTF, DDI2, PT, CK3, ICA, FEIBC, LIPD2, TROPN, LACT3, MG3, FERR3, HA1C2, APTT, BNP3, PHOS3, PCAL, HEMDF, CRP2, LDH3, BMP3M, TSH5 ####[address] #### OZIEL VD25H ####[address] [place] [address] Monocytes/100 WBC (Bld) 9.9 % Normal 2.0-10.0 [facility] Comment on above: Performed By: #### C ORTL, QTF, DDI2, PT, CK3, ICA, FEIBC, LIPD2, TROPN, LACT3, MG3, FERR3, HA1C2, APTT, BNP3, PHOS3, PCAL, HEMDF, CRP2, LDH3, BMP3M, TSH5 ####[address] #### OZIEL VD25H ####[address] [place] [address] Platelet mean volume (Bld) [Entitic vol] 8.5 fL Normal 7.4-10.4 [facility] Comment on above: Performed By: #### C ORTL, QTF, DDI2, PT, CK3, ICA, FEIBC, LIPD2, TROPN, LACT3, MG3, FERR3, HA1C2, APTT, BNP3, PHOS3, PCAL, HEMDF, CRP2, LDH3, BMP3M, TSH5 ####[address] #### OZIEL, VD25H ####[address] [place] [address] Platelets (Bld) [#/Vol] 140 10*3/uL Normal 140-440 [facility] Comment on above: Performed By: #### C ORTL, QTF, DDI2, PT, CK3, ICA, FEIBC, LIPD2, TROPN, LACT3, MG3, FERR3, HA1C2, APTT, BNP3, PHOS3, PCAL, HEMDF, CRP2, LDH3, BMP3M, TSH5 ####[facility] [employer] [address] #### OZIEL, VD25H ####[address] [place] [address] RBC (Bld) [#/Vol] 5.23 10*6/uL High 3.80-5.20 [facility] Comment on above: Performed By: #### C ORTL, QTF, DDI2, PT, CK3, ICA, FEIBC, LIPD2, TROPN, LACT3, MG3, FERR3, HA1C2, APTT, BNP3, PHOS3, PCAL, HEMDF, CRP2, LDH3, BMP3M, TSH5 ####[facility] [employer] [address] #### OZIEL, [id number] ####[address] [place] [address] WBC (Bld) [#/Vol] 3.0 10*3/uL Low 3.6-10.7 [facility] Comment on above: Performed By: #### C ORTL, QTF, DDI2, PT, CK3, ICA, FEIBC, LIPD2, TROPN, LACT3, MG3, FERR3, HA1C2, APTT, BNP3, PHOS3, PCAL, HEMDF, CRP2, LDH3, BMP3M, TSH5 ####[address] #### OZIEL [id number] ####[address] [place] [address] Iron AND TIBCon 06-03-2021 Saturation 7 % Low 15-50 [facility] Comment on above: Performed By: #### C ORTL, QTF, DDI2, PT, CK3, ICA, FEIBC, LIPD2, TROPN, LACT3, MG3, FERR3, HA1C2, APTT, BNP3, PHOS3, PCAL, HEMDF, CRP2, LDH3, BMP3M, TSH5 ####[address] #### OZIEL [id number] ####[address] [place] [address] Total Iron Binding Cap. 338 ug/dL Normal 261-497 [facility] Comment on above: Performed By: #### C ORTL, QTF, DDI2, PT, CK3, ICA, FEIBC, LIPD2, TROPN, LACT3, MG3, FERR3, HA1C2, APTT, BNP3, PHOS3, PCAL, HEMDF, CRP2, LDH3, BMP3M, TSH5 ####[address] #### TRCINDY, VD25H ####[address] [place] [address] Iron, Total 24 ug/dL Low 37-170 [facility] Comment on above: Performed By: #### C ORTL, QTF, DDI2, PT, CK3, ICA, FEIBC, LIPD2, TROPN, LACT3, MG3, FERR3, HA1C2, APTT, BNP3, PHOS3, PCAL, HEMDF, CRP2, LDH3, BMP3M, TSH5 ####[id number] [place] [address]#### OZIEL [id number] ####[address] [place] [address] LACTATE, BLOODOrdered By: Jarrett on 06-03-2021 Lactate [Moles/Vol] 0.9 mmol/L [facility] Lactate [Moles/Vol] 1.1 mmol/L [facility] LACTIC ACIDon 06-03-2021 Lactate [Moles/Vol] 0.9 mmol/L Normal 0.5-2.0 [facility] Comment on above: Performed By: #### U MAC, [facility] #### Testing performed at [address] [address] Lactate [Moles/Vol] 1.1 mmol/L Normal 0.5-2.0 [facility] Comment on above: Performed By: #### C OVID #### Testing performed at [address] [address] LDHon 06-03-2021 LDH 601 U/L High 120-246 [facility] Comment on above: Performed By: #### C ORTL, QTF, DDI2, PT, CK3, ICA, FEIBC, LIPD2, TROPN, LACT3, MG3, FERR3, HA1C2, APTT, BNP3, PHOS3, PCAL, HEMDF, CRP2, LDH3, BMP3M, TSH5 ####[address] #### OZIEL VD25H ####[facility] [place] [address] Lactic Acidon 06-03-2021 Lactate [Moles/Vol] 0.8 mmol/L Normal 0.7-2.0 [facility] Comment on above: Performed By: #### C ORTL, QTF, DDI2, PT, CK3, ICA, FEIBC, LIPD2, TROPN, LACT3, MG3, FERR3, HA1C2, APTT, BNP3, PHOS3, PCAL, HEMDF, CRP2, LDH3, BMP3M, TSH5 ####[address] #### OZIEL VD25H ####[address] [place] [address] Lipid Panelon 06-03-2021 Chol/HDL 5 Normal [facility] Comment on above: Result Comment: Ref Range:< 3 Low Risk for CHD3-6 Mod Risk for CHD> 6 High Risk for CHD Performed By: #### C ORTL, QTF, DDI2, PT, CK3, ICA, FEIBC, LIPD2, TROPN, LACT3, MG3, FERR3, HA1C2, APTT, BNP3, PHOS3, PCAL, HEMDF, CRP2, LDH3, BMP3M, TSH5 ####[address] #### OZIEL VD25H ####[address] [place] [address] Cholesterol in HDL [Mass/Vol] 26 mg/dL Low 40-60 [facility] Comment on above: Performed By: #### C ORTL, QTF, DDI2, PT, CK3, ICA, FEIBC, LIPD2, TROPN, LACT3, MG3, FERR3, HA1C2, APTT, BNP3, PHOS3, PCAL, HEMDF, CRP2, LDH3, BMP3M, TSH5 ####[address] #### OZIEL VD25H ####[address] [place] [address] Low Density Lipoprotein 80 mg/dL Normal <100 [facility] Comment on above: Performed By: #### C ORTL, QTF, DDI2, PT, CK3, ICA, FEIBC, LIPD2, TROPN, LACT3, MG3, FERR3, HA1C2, APTT, BNP3, PHOS3, PCAL, HEMDF, CRP2, LDH3, BMP3M, TSH5 ####[address] #### OZIEL, VD25H ####[facility] [facility] [address] [place] [address] Triglyceride [Mass/Vol] 90 mg/dL Normal <150 [facility] Comment on above: Performed By: #### C ORTL, QTF, DDI2, PT, CK3, ICA, FEIBC, LIPD2, TROPN, LACT3, MG3, FERR3, HA1C2, APTT, BNP3, PHOS3, PCAL, HEMDF, CRP2, LDH3, BMP3M, TSH5 ####[address] #### OZIEL, VD25H ####[address] [place] [address] Cholesterol [Mass/Vol] 124 mg/dL Normal < 200 [facility] Comment on above: Performed By: #### C ORTL, QTF, DDI2, PT, CK3, ICA, FEIBC, LIPD2, TROPN, LACT3, MG3, FERR3, HA1C2, APTT, BNP3, PHOS3, PCAL, HEMDF, CRP2, LDH3, BMP3M, TSH5 ####[address] #### OZIEL, VD25H ####[address] [place] [address] MAGNESIUMon 06-03-2021 Magnesium [Mass/Vol] 2.1 mg/dL Normal 1.6-2.3 [facility] Comment on above: Performed By: #### U JIMENEZ, [facility] #### [place] [address] MAGNESIUMOrdered By: Flash De La Rosa on 06-03-2021 Magnesium [Mass/Vol] 2.1 mg/dL [facility] Magnesiumon 06-03-2021 Magnesium [Mass/Vol] 2.2 mg/dL Normal 1.6-2.3 [facility] Comment on above: Performed By: #### C ORTL, QTF, DDI2, PT, CK3, ICA, FEIBC, LIPD2, TROPN, LACT3, MG3, FERR3, HA1C2, APTT, BNP3, PHOS3, PCAL, HEMDF, CRP2, LDH3, BMP3M, TSH5 ####[address] [address]#### TRFN, VD25H ####[facility] [employer] [id number] [facility] [place] [address] NT pro BNPon 06-03-2021 Natriuretic peptide B (Bld) [Mass/Vol] 1248 pg/mL High 0-125 [facility] Comment on above: Performed By: #### C ORTL, QTF, DDI2, PT, CK3, ICA, FEIBC, LIPD2, TROPN, LACT3, MG3, FERR3, HA1C2, APTT, BNP3, PHOS3, PCAL, HEMDF, CRP2, LDH3, BMP3M, TSH5 ####[address] #### TRCINDY, VD25H ####[facility] [employer] [id number] [facility] [place] [address] No Panel InformationOrdered By: Flash De La Rosa on 06-03-2021 Interpretation and review of laboratory results Abnormal [facility] PROTIMEon 06-03-2021 INR Coag (PPP) [Relative time] 1.01 {INR} Normal 0.85-1.10 [facility] Comment on above: Result Comment: 2.0-3.0 THERAPEUTIC RANGE 2.5-3.5 MECHANICAL VALVE RANGE Performed By: #### P T, CREACT, ESR, CMPF, HH, MG #### [place] [address] PT Coag (PPP) [Time] 13.5 s Normal 11.8-14.4 [facility] Comment on above: Performed By: #### P T, CREACT, ESR, CMPF, HH, MG #### [place] [address] PROTIME-INROrdered By: Elizabeth De La Rosa on 06-03-2021 INR Coag (PPP) [Relative time] 1.01 {INR} [facility] Comment on above: 2.0-3.0 THERAPEUTIC RANGE 2.5-3.5 MECHANICAL VALVE RANGE PT Coag (PPP) [Time] 13.5 s [facility] Phosphoruson 06-03-2021 Phosphate [Mass/Vol] 3.3 mg/dL Normal 2.5-4.5 [facility] Comment on above: Performed By: #### C ORTL, QTF, DDI2, PT, CK3, ICA, FEIBC, LIPD2, TROPN, LACT3, MG3, FERR3, HA1C2, APTT, BNP3, PHOS3, PCAL, HEMDF, CRP2, LDH3, BMP3M, TSH5 ####[address] #### OZIEL VD25H ####[address] [place] [address] Procalcitoninon 06-03-2021 Procalcitonin 0.07 ng/mL Normal 0.00-0.09 [facility] Comment on above: Performed By: #### C ORTL, QTF, DDI2, PT, CK3, ICA, FEIBC, LIPD2, TROPN, LACT3, MG3, FERR3, HA1C2, APTT, BNP3, PHOS3, PCAL, HEMDF, CRP2, LDH3, BMP3M, TSH5 ####[address] #### TRFN, VD25H ####[address] [place] [address] Interpretation See Below Normal [facility] Comment on above: Result Comment: PCT <0.50 = Low risk of severe sepsis and/or septic shock.PCT >2.00 = High risk of severe sepsis and/or septic shock. Performed By: #### C ORTL, QTF, DDI2, PT, CK3, ICA, FEIBC, LIPD2, TROPN, LACT3, MG3, FERR3, HA1C2, APTT, BNP3, PHOS3, PCAL, HEMDF, CRP2, LDH3, BMP3M, TSH5 ####[address] #### OZIEL VD25H ####[address] [address] Prothrombin Timeon 1 INR 1.0 Normal 0.9-1.1 [facility] Comment on above: Result Comment: Nadeem mmended Anticoagulant Therapy: SEE BELOW----- INR of 2.0 - 3.0 : - Prophylaxis of Venous Thrombosis (high-risk surgery) - Treatment of Venous Thrombosis - Treatment of Pulmonary Embolism (Includes tissue heart valves, Acute Myocardial Infarction to prevent systemic embolism, Valvular Heart Disease, and Atrial Fibrillation)----- INR of 2.5 - 3.5 : - Mechanical Prosthetic Valves (high risk) - If oral anticoagulant therapy is used to prevent Myocardial Infarction Performed By: #### C ORTL, QTF, DDI2, PT, CK3, ICA, FEIBC, LIPD2, TROPN, LACT3, MG3, FERR3, HA1C2, APTT, BNP3, PHOS3, PCAL, HEMDF, CRP2, LDH3, BMP3M, TSH5 ####[address] #### [id number] ####[address] [address] PT Coag (PPP) [Time] 10.8 s Normal 9.0-12.0 [facility] Comment on above: Result Comment: . Performed By: #### C ORTL, QTF, DDI2, PT, CK3, ICA, FEIBC, LIPD2, TROPN, LACT3, MG3, FERR3, HA1C2, APTT, BNP3, PHOS3, PCAL, HEMDF, CRP2, LDH3, BMP3M, TSH5 ####[address] [address]#### OZIEL VD25H ####[address] [address] SEDIMENTATION RATE, AUTOMATE DOrdered By: Flash De La Rosa on 06-03-2021 ESR (Bld) [Velocity] 51 mm/h [facility] Interpretation and review of laboratory results Abnormal [facility] Staph Aureus Complete Nasalo n 06-03-2021 Staph Aureus Complete Nasal Normal [facility] Comment on above: Performed By: #### S APCR ####[facility] [employer] [address] Thyroid Stim. Hormoneon Thyroid Stim. Hormone 0.869 u[IU]/mL Normal 0.465-4.68 0 [facility] Comment on above: Performed By: #### C ORTL, QTF, DDI2, PT, CK3, ICA, FEIBC, LIPD2, TROPN, LACT3, MG3, FERR3, HA1C2, APTT, BNP3, PHOS3, PCAL, HEMDF, CRP2, LDH3, BMP3M, TSH5 ####[facility] [employer] [place] [address] #### TRFN, VD25H ####[facility] [employer] [id number] [place] [address] Troponin Ion 06-03-2021 Troponin I.cardiac [Mass/Vol] ng/mL Normal 0.000-0.034 [facility] Comment on above: Result Comment: . Performed By: #### T ROPN ####[facility] [employer] [address] Troponin I.cardiac [Mass/Vol] ng/mL Normal 0.000-0.034 [facility] Comment on above: Result Comment: . Performed By: #### C ORTL, QTF, DDI2, PT, CK3, ICA, FEIBC, LIPD2, TROPN, LACT3, MG3, FERR3, HA1C2, APTT, BNP3, PHOS3, PCAL, HEMDF, CRP2, LDH3, BMP3M, TSH5 ####[facility] Center[facility], [facility] [place] [address] #### TRFN, VD25H ####[facility] [place] [address] 25 0H VITAMIN D LEVELon 07-0 25 0H VITAMIN D LEVEL 27.7 NG/ML Low >30 [facility] Comment on above: Result Comment: DEFICIENT <20 NG/ML INSUFFICIENT 20-<30 NG/ML SUFFICIENT 30-100 NG/ML POTENTIAL TOXICITY >100 NG/ML Performed By: #### U MAC, UMIC #### Testing performed at [address] [place] [address] ARTERIAL BLOOD GASon 021 KAROLYN'S TEST Positive Normal [facility] Comment on above: Performed By: #### U MAC, UMIC #### Testing performed at [address] [address] BASE EXCESS 0.9 mEq/L Normal 0-2 [facility] Comment on above: Performed By: #### U MAC, UMIC #### Testing performed at [address] [place] [address] cHCO3 (P,ST)C 24.3 mEq/L Normal 22-26 [facility] Comment on above: Performed By: #### U MAC, UMIC #### Testing performed at [address] [place] [address] ctCO2 (B)c 22.1 Vol% [facility] Comment on above: Performed By: #### U MAC, UMIC #### Testing performed at [address] [address] ctHb 10.8 g/dl Normal [facility] Comment on above: Performed By: #### U MAC, UMIC #### Testing performed at [address] [place] [address] FCOHb 1.8 % Normal [facility] Comment on above: Performed By: #### U MAC, UMIC #### Testing performed at [address] [place] [address] FMetHb 0.0 % [facility] Comment on above: Performed By: #### U MAC, UMIC #### Testing performed at [address] [place] [address] FO2Hb 94.8 % [facility] Comment on above: Performed By: #### U MAC, UMIC #### Testing performed at [address] [address] NOTES: BIPAP 14/8 RATE 14 [facility] Comment on above: Performed By: #### U MAC, UMIC #### Testing performed at [address] [address] PATIENT DIAGNOSIS COVID Normal [facility] Comment on above: Performed By: #### U MAC, UMIC #### Testing performed at [address] [address] PATIENT O2 SETTINGS 15L [facility] Comment on above: Performed By: #### U MAC, UMIC #### Testing performed at [address] [address] pCO2, arterial 35.8 mmHg Normal 35-45 [facility] Comment on above: Performed By: #### U MAC, UMIC #### Testing performed at [address] [address] pH, arterial 7.450 Normal 7.350-7.450 [facility] Comment on above: Performed By: #### U MAC, UMIC #### Testing performed at [address] [address] pO2,arterial 79.0 mmHg Low 80-100 [facility] Comment on above: Performed By: #### U MAC, UMIC #### Testing performed at [address] [address] SAMPLE SITE LEFT RADIAL Normal [facility] Comment on above: Performed By: #### U MAC, UMIC #### Testing performed at [address] [address] sO2,arterial 96.5 % Normal 95-100 [facility] Comment on above: Performed By: #### U MAC, UMIC #### Testing performed at [address] [address] B TYPE NATRIURETIC PEPTIDEon 06-02-2021 Natriuretic peptide B (Bld) [Mass/Vol] 123 pg/mL [facility] Comment on above: Result Comment: Test ing performed at [place] [address] Performed By: #### U MAC, UMIC #### Testing performed at [address] [address] B-TYPE NATRIURETIC PEPTIDE ( BRAIN)Ordered By: Flash De La Rosa on 06-02-2021 Natriuretic peptide B (Bld) [Mass/Vol] 123 pg/mL [facility] Comment on above: Testing performed at [address] B12 & FOLATEOrdered By: Jb De La Rosa on 06-02-2021 Cobalamin (Vitamin B12) [Mass/Vol] 537 pg/mL 180 - 914 PG/ML [facility] Folate [Mass/Vol] 16.0 ng/mL >5.9 NG/ML [facility] B12 FOLATEon 06-02-2021 Cobalamin (Vitamin B12) [Mass/Vol] 537 pg/mL Normal 180-914 [facility] Comment on above: Performed By: #### U MAC, UMIC #### Testing performed at [address] [address] FOLATE 16.0 NG/ML Normal >5.9 [facility] Comment on above: Performed By: #### U MAC, UMIC #### Testing performed at [address] [address] BLOOD CULTUREon 06-02-2021 Bacteria identified Cx Nom (Bld) SPECIMEN DESCRIPTION PERIPHERAL BLOOD DRAW CULTURE NO GROWTH 5 DAYS * Result Note: Testing performed at [place] [address] * REPORT STATUS 06/08/2021 * Result Note: FINAL * Normal [facility] Comment on above: Performed By: #### U MAC, UMIC #### Testing performed at [address] [address] Bacteria identified Cx Nom (Bld) SPECIMEN DESCRIPTION PERIPHERAL BLOOD DRAW CULTURE NO GROWTH 5 DAYS * Result Note: Testing performed at [place] [address] * REPORT STATUS 06/08/2021 * Result Note: FINAL * Normal [facility] Comment on above: Performed By: #### B LC #### Testing performed at [address] [address] Testing performed at [address] [address] BLOOD GAS, ARTERIALOrdered B y: Flash De La Rosa on 06-02-2021 Arterial patency Wrist artery --pre arterial puncture Positive [facility] Base excess Calc (BldV) [Moles/Vol] 0.9 mmol/L [facility] Carbon dioxide/Gas.total.at end expiration in Exhaled gas 22.1 Vol% [facility] Carboxyhemoglobin (Bld) [Mass fraction] 1.8 % [facility] CO2 (Bld) [Partial pressure] 35.8 mm[Hg] [facility] Diagnosis Narrative COVID [facility] HCO3 (Bld) [Moles/Vol] 24.3 mmol/L [facility] Hemoglobin (Bld) [Mass/Vol] 10.8 g/dL [facility] Interpretation and review of laboratory results Abnormal [facility] Methemoglobin (BldC) [Mass fraction] 0.0 % [facility] NOTE BIPAP 14/8 RATE 14 [facility] Oxygen (Bld) [Partial pressure] 15L [facility] Oxygen (Bld) [Partial pressure] 79.0 mm[Hg] Low [facility] Oxyhemoglobin (Bld) [Mass fraction] 94.8 % [facility] pH (Bld) 7.450 [pH] [facility] Specimen site Narrative LEFT RADIAL [facility] C REACTIVE PROTEINon 021 CRP [Mass/Vol] 143.1 mg/L High 0-10.0 [facility] Comment on above: Performed By: #### C OVID #### Testing performed at [address] [address] C REACTIVE PROTEINOrdered By : Nawaf Dalton on 06-02-2021 CRP [Mass/Vol] 143.1 mg/L High 0 - 10.0 MG/L [facility] CBCon 06-02-2021 DTYPE MANUAL DIFF Normal [facility] Comment on above: Performed By: #### U JIMENEZ UMIC #### Testing performed at [address] [address] Lymphocytes/100 WBC (Bld) 35 % Normal 20.0-55.0 [facility] Comment on above: Performed By: #### U MAC, UMIC #### Testing performed at [address] [address] Monocytes/100 WBC (Bld) 3 % Normal 0.0-10.0 [facility] Comment on above: Performed By: #### U MAC, UMIC #### Testing performed at [address] [address] Neutrophils/100 WBC (Bld) 62 % Normal 37.0-75.0 [facility] Comment on above: Performed By: #### U MAC, UMIC #### Testing performed at [address] [address] PLATELET COMMENT DECREASED Normal [facility] Comment on above: Performed By: #### U MAC, UMIC #### Testing performed at [address] [address] RBC morphology finding Nom (Bld) 2+ Normal [facility] Comment on above: Result Comment: MICR OCYTOSIS 1+ ANISOCYTE Performed By: #### U MAC, UMIC #### Testing performed at [address] [address] Erythrocyte distribution width (RBC) [Ratio] 20.4 % High 11.5-14.5 [facility] Comment on above: Performed By: #### U MAC, UMIC #### Testing performed at [address] [address] Hematocrit (Bld) [Volume fraction] 34.4 % Low 36.0-48.0 [facility] Comment on above: Performed By: #### U MAC, UMIC #### Testing performed at [address] [address] Hemoglobin (Bld) [Mass/Vol] 11.1 g/dL Low 12.0-16.0 [facility] Comment on above: Performed By: #### U MAC, UMIC #### Testing performed at [address] [address] MCH (RBC) [Entitic mass] 22.5 pg Low 26.0-35.0 [facility] Comment on above: Performed By: #### U MAC, UMIC #### Testing performed at [address] [address] MCHC (RBC) [Mass/Vol] 32.1 g/dL Normal 27.0-37.0 [facility] Comment on above: Performed By: #### U MAC, UMIC #### Testing performed at [address] [address] MCV (RBC) [Entitic vol] 69.9 fL Low 80.0-100.0 [facility] Comment on above: Performed By: #### U MAC, UMIC #### Testing performed at [address] [address] Platelet mean volume (Bld) [Entitic vol] 8.5 fL Normal 7.4-11.0 [facility] Comment on above: Performed By: #### U MAC, UMIC #### Testing performed at [address] [address] Platelets (Bld) [#/Vol] 125 10*3/uL Low 130.0-400.0 [facility] Comment on above: Performed By: #### U MAC, UMIC #### Testing performed at [address] [address] RBC (Bld) [#/Vol] 4.93 10*6/uL Normal 4.0-5.4 [facility] Comment on above: Performed By: #### U MAC, UMIC #### Testing performed at [address] [address] WBC (Bld) [#/Vol] 2.3 10*3/uL Low 3.6-11.0 [facility] Comment on above: Performed By: #### U MAC, UMIC #### Testing performed at [address] [address] CBC, EDIF, PLATELETOrdered B y: Nawaf Castellanoswilmerslois on 06-02-2021 Differential cell count method Nom (Bld) MANUAL DIFF % [facility] Erythrocyte distribution width (RBC) [Ratio] 20.4 % High 11.5 - 14.5 % [facility] Hematocrit (Bld) [Volume fraction] 34.4 % Low 36.0 - 48.0 % [facility] Hemoglobin (Bld) [Mass/Vol] 11.1 g/dL Low [facility] Interpretation and review of laboratory results Abnormal [facility] Lymphocytes/100 WBC (Bld) 35 % 20.0 - 55.0 % [facility] MCH (RBC) [Entitic mass] 22.5 pg Low 26.0 - 35.0 PG [facility] MCHC (RBC) [Mass/Vol] 32.1 g/dL [facility] MCV (RBC) [Entitic vol] 69.9 fL Low [facility] Monocytes/100 WBC (Bld) 3 % 0.0 - 10.0 % [facility] Morphology Terry (Bld) [Interp] 2+ [facility] Comment on above: MICROCYTOSIS 1+ ANISOCYTE Neutrophils/100 WBC (Bld) 62 % 37.0 - 75.0 % [facility] Platelet mean volume (Bld) [Entitic vol] 8.5 fL [facility] Platelet morphology finding Nom (Bld) DECREASED [facility] Platelets (Bld) [#/Vol] 125 10*3/uL Low 130.0 - 400.0 10*3/uL [facility] RBC (Bld) [#/Vol] 4.93 10*6/uL 4.0 - 5.4 10*6/uL [facility] WBC (Bld) [#/Vol] 2.3 10*3/uL Low 3.6 - 11.0 10*3/uL [facility] CMP FASTINGon 06-02-2021 A:G RATIO 0.7 RATIO Low 1.3-2.2 [facility] Comment on above: Performed By: #### U MAC, UMIC #### Testing performed at [address] [address] ALBUMIN 3.1 G/dl Low 3.5-5.0 [facility] Comment on above: Performed By: #### U MAC, UMIC #### Testing performed at [address] [address] ALP [Catalytic activity/Vol] 79 U/L Normal 38-126 [facility] Comment on above: Performed By: #### U MAC, UMIC #### Testing performed at [address] [address] ALT [Catalytic activity/Vol] 34 U/L Normal 14-54 [facility] Comment on above: Performed By: #### U MAC, UMIC #### Testing performed at [address] [address] AST [Catalytic activity/Vol] 58 U/L High 15-41 [facility] Comment on above: Performed By: #### U MAC, UMIC #### Testing performed at [address] [address] Bilirubin [Mass/Vol] 0.5 mg/dL Normal 0.2-1.2 [facility] Comment on above: Performed By: #### U MAC, UMIC #### Testing performed at [address] [address] Creatinine [Mass/Vol] 0.95 mg/dL Normal 0.52-1.04 [facility] Comment on above: Performed By: #### U MAC, UMIC #### Testing performed at [address] [address] EST. GFR, >60 Normal [facility] Comment on above: Performed By: #### U MAC, UMIC #### Testing performed at [address] [address] EST. GFR,Non >60 Normal [facility] Comment on above: Performed By: #### U MAC, UMIC #### Testing performed at [address] [address] GFR Information Average GFR for 50-5 9 years old = 93. Normal [facility] Comment on above: Result Comment: Knowledge Management Consultant randi Kidney disease, GFR = <60. Kidney failure, GFR = <15. The GFR estimate is not adjusted for extreme body surface area or acute process, nor has it been validated for women or ethnic groups other than and . Performed By: #### U MAC, UMIC #### Testing performed at [address] [address] Protein [Mass/Vol] 7.4 g/dL Normal 6.3-8.2 [facility] Comment on above: Performed By: #### U MAC, UMIC #### Testing performed at [address] [address] Urea nitrogen [Mass/Vol] 13 mg/dL Normal 7-20 [facility] Comment on above: Performed By: #### U MAC, UMIC #### Testing performed at [address] [address] Calcium [Mass/Vol] 8.2 mg/dL Low 8.4-10.2 [facility] Comment on above: Performed By: #### U MAC, UMIC #### Testing performed at [address] [address] Chloride [Moles/Vol] 98 mmol/L Normal 98-107 [facility] Comment on above: Performed By: #### U MAC, UMIC #### Testing performed at [address] [address] CO2 [Moles/Vol] 25 mmol/L Normal 22-30 [facility] Comment on above: Performed By: #### U MAC, UMIC #### Testing performed at [address] [address] Glucose [Mass/Vol] 109 mg/dL High 70-100 [facility] Comment on above: Result Comment: NORMAL <100 mg/dL PREDIABETES 101-126 mg/dL DIABETES 126 mg/dL or higher Performed By: #### U MAC, UMIC #### Testing performed at [address] [address] Potassium [Moles/Vol] 4.2 mmol/L Normal 3.5-5.1 [facility] Comment on above: Performed By: #### U MAC, UMIC #### Testing performed at [address] [address] Sodium [Moles/Vol] 133 mmol/L Low 136-145 [facility] Comment on above: Performed By: #### U MAC, UMIC #### Testing performed at [address] [address] COMPREHENSIVE METABOLIC PANE LOrdered By: Nawaf Dalton on 06-02-2021 Albumin [Mass/Vol] 3.1 G/dl Low 3.5 - 5.0 G/dl [facility] Albumin/Globulin [Mass ratio] 0.7 {ratio} Low [facility] ALP [Catalytic activity/Vol] 79 U/L [facility] ALT [Catalytic activity/Vol] 34 U/L [facility] AST [Catalytic activity/Vol] 58 U/L High [facility] Bilirubin [Mass/Vol] 0.5 mg/dL [facility] Calcium [Mass/Vol] 8.2 mg/dL Low [facility] Chloride [Moles/Vol] 98 mmol/L [facility] CO2 [Moles/Vol] 25 mmol/L [facility] Creatinine [Mass/Vol] 0.95 mg/dL [facility] GFR COMMENT Average GFR for 50-5 9 years old = 93. [facility] Comment on above: Chronic Kidney disea se, GFR = <60. Kidney failure, GFR = <15. The GFR estimate is not adjusted for extreme body surface area or acute process, nor has it been validated for women or ethnic groups other than and . GFR/1.73 sq M.predicted among blacks MDRD (S/P/Bld) [Vol rate/Area] mL/min/{1.73_m2} ml/min/1.73s q.m [facility] GFR/1.73 sq M.predicted among non-blacks MDRD (S/P/Bld) [Vol rate/Area] mL/min/{1.73_m2} ml/min/1.73s q.m [facility] Glucose post fast [Mass/Vol] 109 mg/dL High [facility] Comment on above: NORMAL <100 mg/dL PREDIABETES 101-126 mg/dL DIABETES 126 mg/dL or higher Potassium [Moles/Vol] 4.2 mmol/L [facility] Protein [Mass/Vol] 7.4 g/dL [facility] Sodium [Moles/Vol] 133 mmol/L Low [facility] Urea nitrogen [Mass/Vol] 13 mg/dL [facility] CT PE STUDYon 06-02-2021 CT PE STUDY EXAMINATION: CT PE S TUDY HISTORY: Cough and shortness of breath. COMPARISON: Chest radiographs dated 03/01/2018. Covid positive. TECHNIQUE: CT angiography of the pulmonary arteries following the administration of intravenous contrast. Coronal and sagittal MIP (maximum intensity projection) images were performed. Dose reduction techniques were achieved by using automated exposure control and/or adjustment of mA and/or kV according to patient size and/or use of iterative reconstruction technique. AI TECHNOLOGY: This study was processed using [employer]. No prior found. Current Lung Volume: 1.00 liters (right), 0.90 liters (left) FINDINGS: Contrast opacification of the pulmonary arteries is poor and essentially nondiagnostic for pulmonary embolism. The main pulmonary artery is enlarged, measuring up to 4 cm. The thoracic aorta is at the upper limits of normal in size. Contrast opacification of the aorta is also suboptimal. The heart is enlarged. There is no pericardial effusion. Extensive scattered airspace opacities throughout both lungs. No pleural effusion or pneumothorax. The central airways are patent. No enlarged lymph nodes by CT size criteria. No acute abnormality in the visualized portions of the upper abdomen. IMPRESSION: 1. Poor contrast opacification of the pulmonary arteries is essentially nondiagnostic for pulmonary embolism. Enlargement of the main pulmonary artery suggests pulmonary arterial hypertension. 2. Cardiomegaly. 3. Extensive scattered airspace opacities throughout both lungs compatible with multifocal viral pneumonia. Normal [facility] CT PE STUDYOrdered By: Nawaf Dalton on 06-02-2021 IMPRESSION: 1. Poor contrast opacification of the pulmonary arteries is essentially nondiagnostic for pulmonary embolism. Enlargement of the main pulmonary artery suggests pulmonary arterial hypertension. 2. Cardiomegaly. 3. Extensive scattered airspace opacities throughout both lungs compatible with multifocal viral pneumonia. [facility] EXAMINATION: CT PE S TUDY HISTORY: Cough and shortness of breath. COMPARISON: Chest radiographs dated 03/01/2018. Covid positive. TECHNIQUE: CT angiography of the pulmonary arteries following the administration of intravenous contrast. Coronal and sagittal MIP (maximum intensity projection) images were performed. Dose reduction techniques were achieved by using automated exposure control and/or adjustment of mA and/or kV according to patient size and/or use of iterative reconstruction technique. AI TECHNOLOGY: This study was processed using [employer] CT [employer]. No prior found. Current Lung Volume: 1.00 liters (right), 0.90 liters (left) FINDINGS: Contrast opacification of the pulmonary arteries is poor and essentially nondiagnostic for pulmonary embolism. The main pulmonary artery is enlarged, measuring up to 4 cm. The thoracic aorta is at the upper limits of normal in size. Contrast opacification of the aorta is also suboptimal. The heart is enlarged. There is no pericardial effusion. Extensive scattered airspace opacities throughout both lungs. No pleural effusion or pneumothorax. The central airways are patent. No enlarged lymph nodes by CT size criteria. No acute abnormality in the visualized portions of the upper abdomen. [facility] User, Interfaces - 06/02/2021 1:25 PM EDT EXAMINATION: CT PE STUDY HISTORY: Cough and shortness of breath. COMPARISON: Chest radiographs dated 03/01/2018. Covid positive. TECHNIQUE: CT angiography of the pulmonary arteries following the administration of intravenous contrast. Coronal and sagittal MIP (maximum intensity projection) images were performed. Dose reduction techniques were achieved by using automated exposure control and/or adjustment of mA and/or kV according to patient size and/or use of iterative reconstruction technique. AI TECHNOLOGY: This study was processed using [employer]. No prior found. Current Lung Volume: 1.00 liters (right), 0.90 liters (left) FINDINGS: Contrast opacification of the pulmonary arteries is poor and essentially nondiagnostic for pulmonary embolism. The main pulmonary artery is enlarged, measuring up to 4 cm. The thoracic aorta is at the upper limits of normal in size. Contrast opacification of the aorta is also suboptimal. The heart is enlarged. There is no pericardial effusion. Extensive scattered airspace opacities throughout both lungs. No pleural effusion or pneumothorax. The central airways are patent. No enlarged lymph nodes by CT size criteria. No acute abnormality in the visualized portions of the upper abdomen. IMPRESSION IMPRESSION: 1. Poor contrast opacification of the pulmonary arteries is essentially nondiagnostic for pulmonary embolism. Enlargement of the main pulmonary artery suggests pulmonary arterial hypertension. 2. Cardiomegaly. 3. Extensive scattered airspace opacities throughout both lungs compatible with multifocal viral pneumonia. [facility] ESRon 06-02-2021 ESR (Bld) [Velocity] 121 mm/h High 0-30 [facility] Comment on above: Performed By: #### C OVID #### Testing performed at [facility] [address] [place] [address] FERRITINon 06-02-2021 Ferritin [Mass/Vol] 139 ng/mL Normal 11.0-306.8 [facility] Comment on above: Result Comment: DIONNA ENOPAUSAL FEMALES 6.9-282.5 POSTMENOPAUSAL FEMALES 14.0-233.1 Performed By: #### [facility] [place] #### Testing performed at [address] [address] FERRITINOrdered By: Flash london on 06-02-2021 Ferritin [Mass/Vol] 139 ng/mL [facility] Comment on above: PREMENOPAUSAL FEMALE S 6.9-282.5 POSTMENOPAUSAL FEMALES 14.0-233.1 HEMOGLOBIN & HEMATOCRITOrder ed By: Flash De La Rosa on 06-02-2021 Hematocrit (Bld) [Volume fraction] 34.3 % Low 36.0 - 48.0 % [facility] Hemoglobin (Bld) [Mass/Vol] 11.0 g/dL Low [facility] Interpretation and review of laboratory results Abnormal [facility] Hematocrit (Bld) [Volume fraction] 34.4 % Low 36.0 - 48.0 % [facility] Hemoglobin (Bld) [Mass/Vol] 11.1 g/dL Low [facility] Interpretation and review of laboratory results Abnormal [facility] HEPATIC FUNCTION PANELOrdere d By: Guilherme Naranjo on 06-02-2021 Albumin [Mass/Vol] 2.9 g/dL Low [facility] ALP [Catalytic activity/Vol] 79 U/L [facility] ALT [Catalytic activity/Vol] 32 U/L [facility] AST [Catalytic activity/Vol] 58 U/L High [facility] Bilirubin [Mass/Vol] 0.5 mg/dL [facility] Bilirubin.direct [Mass/Vol] 0.1 mg/dL [facility] Interpretation and review of laboratory results Abnormal [facility] Protein [Mass/Vol] 6.6 g/dL [facility] HGB/HCTon 06-02-2021 Hematocrit (Bld) [Volume fraction] 34.3 % Low 36.0-48.0 [facility] Comment on above: Performed By: #### U [facility], U[facility] #### Testing performed at [address] [address] Hemoglobin (Bld) [Mass/Vol] 11.0 g/dL Low 12.0-16.0 [facility] Comment on above: Performed By: #### U [facility], UMIC #### Testing performed at [address] [address] Hematocrit (Bld) [Volume fraction] 34.4 % Low 36.0-48.0 [facility] Comment on above: Performed By: #### U [facility], UMIC #### Testing performed at [address] [address] Hemoglobin (Bld) [Mass/Vol] 11.1 g/dL Low 12.0-16.0 [facility] Comment on above: Performed By: #### U [facility], UMIC #### Testing performed at [address] [address] IRON PROFILEon 06-02-2021 Iron [Mass/Vol] 12 ug/dL Low 37-170 [facility] Comment on above: Performed By: #### U [facility], UMIC #### Testing performed at [address] [address] IRON BINDING 378 UG/DL Normal 250-450 [facility] Comment on above: Performed By: #### U [facility], U[facility] #### Testing performed at [address] [address] TRANSFERRIN SATURATION,CALCULATED 3 % Normal [facility] Comment on above: Performed By: #### U [facility], UMIC #### Testing performed at [address] [address] IRON/IRON BINDING/TRANSFERRI NOrdered By: Flash De La Rosa on 06-02-2021 Interpretation and review of laboratory results Abnormal [facility] Iron [Mass/Vol] 12 ug/dL Low [facility] Iron binding capacity [Mass/Vol] 378 [facility] Iron saturation [Mass fraction] 3 % [facility] L PNEUMOPHILIA AG URINEon L PNEUMOPHILIA AG URINE Negative Normal NEGATIVE [facility] Comment on above: Performed By: #### S CYNTHIA EVANS #### Testing performed at [address] [address] LACTATE, BLOODOrdered By: Jarrett on 06-02-2021 Lactate [Moles/Vol] 0.8 mmol/L [facility] LACTIC ACIDon 06-02-2021 Lactate [Moles/Vol] 0.8 mmol/L Normal 0.5-2.0 [facility] Comment on above: Performed By: #### C OVID #### Testing performed at [address] [address] [facility] AGOrdered By: Flash De La Rosa on 06-02-2021 L. pneumophila 1 Ag IA Ql (U) Negative NEGATIVE [facility] LIVER PANELon 06-02-2021 Albumin [Mass/Vol] 2.9 g/dL Low 3.5-5.0 [facility] Comment on above: Performed By: #### C OVID #### Testing performed at [address] [address] ALP [Catalytic activity/Vol] 79 U/L Normal 38-126 [facility] Comment on above: Performed By: #### C OVID #### Testing performed at [address] [address] ALT [Catalytic activity/Vol] 32 U/L Normal 14-54 [facility] Comment on above: Performed By: #### C OVID #### Testing performed at [address] [address] AST [Catalytic activity/Vol] 58 U/L High 15-41 [facility] Comment on above: Performed By: #### C OVID #### Testing performed at [address] [address] Bilirubin [Mass/Vol] 0.5 mg/dL Normal 0.2-1.2 [facility] Comment on above: Performed By: #### C OVID #### Testing performed at [address] [address] Bilirubin.indirect [Mass/Vol] 0.1 mg/dL Normal 0.0-0.2 [facility] Comment on above: Performed By: #### C OVID #### Testing performed at [address] [address] Protein [Mass/Vol] 6.6 g/dL Normal 6.3-8.2 [facility] Comment on above: Performed By: #### C OVID #### Testing performed at [address] [address] MRSA SCREENon 06-02-2021 MRSA DNA CHANTELL+probe Ql (Unsp spec) Not detected Normal NOT DETECTED [facility] Comment on above: Performed By: #### U [facility], UMIC #### Testing performed at [address] [address] STAPH AUREUS SCREEN Detected Abnormal NOT DETECTED [facility] Comment on above: Performed By: #### U [facility], UMIC #### Testing performed at [address] [address] NOVEL CORONAVIRUSon 06-02-20 21 NARRATIVE This test was perfor med using isothermal CHANTELL and has been approved as Emergency Use Authorization (EUA) for the qualitative detection [id number] nucleic acid. Normal [facility] Comment on above: Performed By: #### C OVID #### Testing performed at [place] [id number] SARS-CoV-2 (COVID-19) RNA CHANTELL+probe Ql (Unsp spec) Detected Abnormal NOT DETECTED [facility] Comment on above: Result Comment: ENHA NCED CONTACT, AND DROPLET ISOLATION IS REQUIRED FOR INPATIENTS WITH SARS-CoV-2. Result called to read back by: MORIS MARES 06/02/2021 @ 11:11 by [facility] Performed By: #### C OVID #### [place] [address] NOVEL CORONAVIRUS LAB 1 - NA SOPHARYNGEALOrdered By: Nawaf Dalton on 06-02-2021 Interpretation and review of laboratory results Abnormal [facility] NARRATIVE -1 This test was perfor med using isothermal CHANTELL and has been approved as Emergency Use Authorization (EUA) for the qualitative detection [id number] nucleic acid. [facility] SARS-CoV-2 (COVID-19) RNA CHANTELL+probe Ql (Unsp spec) Detected Abnormal NOT DETECTED [facility] Comment on above: ENHANCED CONTACT, AN D DROPLET ISOLATION IS REQUIRED FOR INPATIENTS WITH SARS-CoV-2. Result called to read back by: MORIS MARES 06/02/2021 @ 11:11 by [facility] No Panel InformationOrdered By: Flash De La Rosa on 06-02-[address] [facility] No Panel InformationOrdered By: Nawaf Dalton on 06-02-2021 [facility] Interpretation and review of laboratory results Abnormal [facility] PROCEDURE - CENTRAL LINE WIT H OR WITHOUT PACOrdered By: Al Stack on 06-02-2021 TAI Hawkins 06/02/2021 4:55 PM INDICATION: Vascular Access / Critically Ill / Limited access PROCEDURE TREATING INSPECTOR: Nathen VICENTE ATTENDING PHYSICIAN: In Attendance (N) CONSENT: Consent was obtained from patient prior to the procedure. Indications, risks, and benefits were explained at length. The procedure was performed emergently and the permission was implied because of the emergent nature. PROCEDURE SUMMARY: A time out was performed. My hands were washed immediately prior to the procedure. I wore a surgical cap, mask with protective eyewear, full gown and sterile gloves throughout the procedure. The patient was placed in Trendelenburg position. Right neck region was prepped using chlorhexidine scrub and draped in sterile fashion using a full drape and sterile probe cover employed. The medial and lateral heads of the sternocleidomastoid muscle were identified as was the carotid pulse. The Internal Jugular vein was identified using the ultrasound. Anesthesia was achieved over the vein using 1% lidocaine. Using real-time out of plane guidance, the introducer needle was inserted into the Internal Jugular vein under direct ultrasound visualization. Venous blood was withdrawn. The syringe was removed and a guidewire was advanced into the introducer needle. The guidewire was visualized in the Internal Jugular Vein by ultrasound. A small incision was made at the skin surface with a scalpel and the introducer needle was exchanged for a dilator over the guidewire. After appropriate dilation was obtained, the dilator was exchanged over the wire for a triple lumen central venous catheter. The wire was removed and the catheter was sutured in place at 15 cm. A sterile sorbaview shield was placed over the catheter at the insertion site. The patient tolerated the procedure without any hemodynamic compromise. At time of procedure completion, all ports aspirated and flushed properly. Post-procedure chest x-ray is pending at this time. Estimated blood loss is less than 10ml. [facility] RETIC COUNTon 06-02-2021 RETIC COUNT 0.57 % Normal 0.50-2.30 [facility] Comment on above: Performed By: #### U [facility] [place] #### Testing performed at [address] [address] RETICULOCYTESOrdered By: Nam De La Rosa on 06-02-2021 Reticulocytes/100 RBC (Bld) 0.57 % 0.50 - 2.30 % [facility] S PNEUMONIAE AG URINEon 07-0 S PNEUMONIAE AG URINE Negative Normal NEGATIVE [facility] Comment on above: Performed By: #### S PAGUT, LPAGUT #### Testing performed at [address] [address] SCREEN: MRSA ONLY, NARES (IS OLATION SCREEN)Ordered By: Flash De La Rosa on 06-02-2021 Interpretation and review of laboratory results Abnormal [facility] MRSA isol Org specific cx Ql (Nose) Not detected NOT DETECTED [facility] STAPHYOCOCCUS AUREUS BY PCR Detected Abnormal NOT DETECTED [facility] SEDIMENTATION RATE, AUTOMATE DOrdered By: Nawaf Dalton on 06-02-2021 ESR (Bld) [Velocity] 121 mm/h [facility] Interpretation and review of laboratory results Abnormal [facility] STREP PNEUMONIAE ANTIGEN, UR INEOrdered By: Flash De La Rosa on 06-02-2021 S. pneumoniae Ag Ql (U) Negative NEGATIVE [facility] TROPONIN I, HIGH SENSITIVITY on 06-02-2021 TROPONIN I, HIGH SENSITIVITY 12 pg/mL Normal 0-12 [facility] Comment on above: Result Comment: Indeterminant: >12 to 100 pg/mL female >20 to 100 pg/mL male Indicative of myocardial injury. Serial sampling is recommended, a change of greater than or equal to 20 pg/mL is indicative of acute coronary syndrome. Performed By: #### C OVID #### Testing performed at [address] [address] TROPONIN I, HIGH SENSITIVITY Ordered By: Nawaf Dalton on 06-02-2021 TROPONIN I, HIGH SENSITIVITY 12 pg/mL 0 - 12 pg/mL [facility] Comment on above: Indeterminant: >12 to 100 pg/mL female >20 to 100 pg/mL male Indicative of myocardial injury. Serial sampling is recommended, a change of greater than or equal to 20 pg/mL is indicative of acute coronary syndrome. [facility] URINALYSIS, MACROOrdered By: Nawaf Dalton on 06-02-2021 Bilirubin Ql (U) Negative NEGATIVE [facility] Clarity (U) CLEAR CLEAR [facility] Color (U) YELLOW YELLOW [facility] Glucose Test strip (U) [Mass/Vol] Negative NEGATIVE mg/dl [facility] Hemoglobin Ql (U) TRACE-LYSED Abnormal NEGATIVE [facility] Interpretation and review of laboratory results Abnormal [facility] Ketones (U) [Mass/Vol] Negative NEGAT EMMY mg/dl [facility] Leukocyte esterase Test strip Ql (U) Negative NEGATIVE [facility] Nitrite Ql (U) Negative NEGATIVE [facility] pH (U) 5.5 [pH] [facility] Protein Ql (U) 100 mg/dl Abnormal NEGATIVE [facility] Specific gravity (U) [Rel density] 1.020 [facility] Urobilinogen (U) [Mass/Vol] 0.2 mg/dL [facility] URINE MACROSCOPICon 06-02-20 Bilirubin Ql (U) Negative Normal NEGATIVE [facility] Comment on above: Performed By: #### U [facility], UMIC #### Testing performed at [address] [address] Clarity (U) CLEAR Normal CLEAR [facility] Comment on above: Performed By: #### U [facility], UMIC #### Testing performed at [address] [place] [address] Color (U) YELLOW Normal YELLOW [facility] Comment on above: Performed By: #### U [facility], UMIC #### Testing performed at [address] [address] Glucose Ql (U) Negative Normal NEGATIVE [facility] Comment on above: Performed By: #### U [facility], UMIC #### Testing performed at [address] [address] pH (U) 5.5 [pH] Normal 5.0-7.0 [facility] Comment on above: Performed By: #### U [facility], UMIC #### Testing performed at [address] [address] Protein (U) [Mass/Vol] 100 mg/dL Abnormal NEGATIVE [facility] Comment on above: Performed By: #### U [facility], UMIC #### Testing performed at [address] [address] URINE HEMOGLOBIN TRACE-LYSED Abnormal NEGATIVE [facility] Comment on above: Performed By: #### U [facility], UMIC #### Testing performed at [address] [address] URINE KETONE Negative Normal NEGATIVE [facility] Comment on above: Performed By: #### U [facility], UMIC #### Testing performed at [address] [address] URINE LEUKOTEST Negative Normal NEGATIVE [facility] Comment on above: Performed By: #### U [facility], UMIC #### Testing performed at [address] [address] URINE NITRATES Negative Normal NEGATIVE [facility] Comment on above: Performed By: #### U [facility], UMIC #### Testing performed at [address] [address] URINE SPEC GRAVITY 1.020 Normal 1.010-1.025 [facility] Comment on above: Performed By: #### U [facility], UMIC #### Testing performed at [address] [address] Urobilinogen Qn (U) 0.2 {Jessica'U}/dL Normal 0.2-1.0 [facility] Comment on above: Performed By: #### U [facility], UMIC #### Testing performed at [address] [address] URINE MICROSCOPICon 06-02-20 21 Bacteria LM.HPF (Urine sed) [#/Area] Negative Normal NEGATIVE [facility] Comment on above: Performed By: #### U [facility], UMIC #### Testing performed at [address] [address] CASTS NONE Normal NONE [facility] Comment on above: Performed By: #### U [facility], UMIC #### Testing performed at [address] [address] CRYSTAL NONE Normal NONE [facility] Comment on above: Performed By: #### U [facility], UMIC #### Testing performed at [address] [address] Epithelial cells LM Ql (Urine sed) 1 TO 5 Normal [facility] Comment on above: Performed By: #### U [facility], UMIC #### Testing performed at [address] [address] Mucus Ql (Urine sed) Negative Normal NEGATIVE [facility] Comment on above: Performed By: #### U [facility], UMIC #### Testing performed at [address] [address] URINE COMMENT CULTURE CRITERIA NOT MET, NO CULTURE PERFORMED. Normal [facility] Comment on above: Performed By: #### U [facility], UMIC #### Testing performed at [address] [address] URINE RBC'S Negative Normal NEGATIVE [facility] Comment on above: Performed By: #### U [facility], UMIC #### Testing performed at [address] [address] URINE WBC'S Negative Normal NEGATIVE [facility] Comment on above: Performed By: #### U [facility], UMIC #### Testing performed at [address] [address] URINE MICROSCOPICOrdered By: Nawaf Dalton on 06-02-2021 Bacteria LM.HPF (Urine sed) [#/Area] Negative NEGATIVE [facility] Casts LM.LPF (Urine sed) [#/Area] NONE NONE /LPF [facility] Crystals LM Nom (Urine sed) NONE NONE [facility] Epithelial cells LM Ql (Urine sed) 1 TO 5 /HPF [facility] Mucus Ql (Urine sed) Negative NEGATIVE [facility] RBC LM.HPF (Urine sed) [#/Area] Negative NEGATIVE /HPF [facility] Urine sediment comments LM Terry (Urine sed) CULTURE CRITERIA NOT MET, NO CULTURE PERFORMED. [facility] WBC LM.HPF (Urine sed) [#/Area] Negative NEGATIVE /HPF [facility] VITAMIN D (25-HYDROXY,TOTAL) Ordered By: Flash De La Rosa on 06-02-2021 25-hydroxyvitamin D [Mass/Vol] 27.7 Low >30 NG/ML [facility] Comment on above: DEFICIENT <20 NG/ML INSUFFICIENT 20-<30 NG/ML SUFFICIENT 30-100 NG/ML POTENTIAL TOXICITY >100 NG/ML Interpretation and review of laboratory results Abnormal [facility] XR CHEST AP PORTABLEon 06-02 XR CHEST AP PORTABLE EXAM: XR CHEST AP PORTABLE HISTORY: central line placement COMPARISON: CT of the chest from 06/02/2021. TECHNIQUE: Portable chest was done at 4:45 PM. FINDINGS: Trachea is midline. Mediastinum is not widened. Heart size is moderately enlarged. Moderate scattered patchy infiltrates are noted bilaterally which may be due to pulmonary edema and/or multifocal pneumonia. Findings are similar roughly similar to the prior study. IMPRESSION: 1. Moderate cardiomegaly. 2. Moderate scattered patchy infiltrates noted bilaterally which may be due to pulmonary edema and/or multifocal pneumonia roughly similar to the prior study. Normal [facility] XR CHEST AP PORTABLEOrdered By: Flash De La Rosa on 06-02-2021 IMPRESSION: 1. Moder ate cardiomegaly. 2. Moderate scattered patchy infiltrates noted bilaterally which may be due to pulmonary edema and/or multifocal pneumonia roughly similar to the prior study. [facility] EXAM: XR CHEST AP PORTABLE HISTORY: central line placement COMPARISON: CT of the chest from 06/02/2021. TECHNIQUE: Portable chest was done at 4:45 PM. FINDINGS: Trachea is midline. Mediastinum is not widened. Heart size is moderately enlarged. Moderate scattered patchy infiltrates are noted bilaterally which may be due to pulmonary edema and/or multifocal pneumonia. Findings are similar roughly similar to the prior study. [facility] User, Interfaces - 06/02/2021 5:15 PM EDT EXAM: XR CHEST AP PORTABLE HISTORY: central line placement COMPARISON: CT of the chest from 06/02/2021. TECHNIQUE: Portable chest was done at 4:45 PM. FINDINGS: Trachea is midline. Mediastinum is not widened. Heart size is moderately enlarged. Moderate scattered patchy infiltrates are noted bilaterally which may be due to pulmonary edema and/or multifocal pneumonia. Findings are similar roughly similar to the prior study. IMPRESSION IMPRESSION: 1. Moderate cardiomegaly. 2. Moderate scattered patchy infiltrates noted bilaterally which may be due to pulmonary edema and/or multifocal pneumonia roughly similar to the prior study. [facility] CHEST 2 VIEWSon 05-17-2021 CHEST [address] [address] Patient: JESUSITA ENGLAND Phone#: : 1970 Age: 51 Gender: F Pt. Type: Out Account: [id number] Location: Ordering: [facility] Exam Date: 05/17/2021/16:21 Family Phys: Charge Code: [id number] Physician: [place] Order #: [id number] DLP Dose#: PROCEDURE: X-RAY CHEST 2 VIEWS COMPARISON: None. INDICATIONS: Exertional shortness of breath. FINDINGS: LUNGS: Normal. No significant pulmonary parenchymal abnormalities. VASCULATURE: Normal. Unremarkable pulmonary vasculature. CARDIAC: Normal. No cardiac silhouette abnormality or cardiomegaly. MEDIASTINUM: Normal. No visible mass or adenopathy. PLEURA: Normal. No effusion or pleural thickening. BONES: Normal. No fracture or visible bony lesion. OTHER: Negative. CONCLUSION: No acute disease. Dictated by: iMchelle Sharma MD on 05/17/2021 at 16:47 Approved by: Michelle Sharma MD on 05/17/2021 at 16:47 Normal [facility] FOOT COMPLETE LTon FOOT COMPLETE LT [place] [address] Patient: JESUSITA ENGLAND Phone#: : 1970 Age: 51 Gender: F Pt. Type: Out Account: [id number] Location: Ordering: [facility] Exam Date: 05/17/2021/16:21 Family Phys: Charge Code: [id number] Physician: [place] Order #: [id number] DLP Dose#: PROCEDURE: X-RAY FOOT LT COMPLETE MIN 3 VIEWS COMPARISON: None. INDICATIONS: Pain. FINDINGS: BONES: 6 millimeter calcaneal spur is present. There is a dorsal calcaneal enthesophyte mild degenerative changes are present at the tarsals. SOFT TISSUES: There is dorsal soft tissue swelling. EFFUSION: None visible. OTHER: Negative. CONCLUSION: 1. There is no evidence of acute bone abnormality. Calcaneal spur is present. Dictated by: Michelle Sharma MD on 05/17/2021 at 16:48 Approved by: Michelle Sharma MD on 05/17/2021 at 16:49 Normal [facility] FOOT COMPLETE RTon 1 FOOT COMPLETE RT [address] [address] Patient: JESUSITA ENGLAND Phone#: : 1970 Age: 51 Gender: F Pt. Type: Out Account: [id number] Location: Ordering: [facility] Exam Date: 05/17/2021/16:24 Family Phys: Charge Code: [id number] Physician: [place] Order #: [id number] DLP Dose#: PROCEDURE: X-RAY FOOT RT COMPLETE MIN 3 VIEWS COMPARISON: None. INDICATIONS: Pain. FINDINGS: BONES: Degenerative changes are present at the tarsals. A dorsal calcaneal and these a fight is present. Calcaneal spur is present but thickened. Possibility of remote fracture is raised. There is no evidence of acute bone abnormality. SOFT TISSUES: Negative. No visible soft tissue swelling. EFFUSION: None visible. OTHER: Negative. CONCLUSION: 1. Degenerative changes are present at the tarsals. Dictated by: Michelle Sharma MD on 05/17/2021 at 16:49 Approved by: Michelle Sharma MD on 05/17/2021 at 16:50 Normal [facility] Laboratory - Chemistry and C hemistry - challengeon 05-17-2021 Ferritin [Mass/Vol] 5 ng/mL Abnormal 16 - 232 ng/mL [facility], [facility].; [facility], [facility]. Laboratory - Hematology and Cell countson 05-17-2021 Basophils (Bld) [#/Vol] 0.022 10*3/uL Normal 0 - 200 {cells/uL} [facility], [facility].; [facility], [facility]. Basophils/100 WBC (Bld) 0.3 % Normal [facility], [facility].; [facility], [facility]. Eosinophils (Bld) [#/Vol] 0.173 10*3/uL Normal 15 - 500 {cells/uL} [facility]. Eosinophils/100 WBC (Bld) 2.4 % Normal [facility].; [facility], [facility]. Erythrocyte distribution width (RBC) [Ratio] 16.8 % Abnormal 11.0 - 15.0 % [facility].; [facility], [facility] Hematocrit (Bld) [Volume fraction] 34.7 % Abnormal 35.0 - 45.0 % [facility].; [facility], [facility]. Hemoglobin (Bld) [Mass/Vol] 10.6 g/dL Abnormal 11.7 - 15.5 g/dL [facility].; [facility], [facility]. Lymphocytes (Bld) [#/Vol] 1.188 10*3/uL Normal 850 - 3900 {cells/uL} [facility].; [facility], [facility]. Lymphocytes/100 WBC (Bld) 16.5 % Normal [facility].; [facility], [facility]. MCH (RBC) [Entitic mass] 22.1 pg Abnormal 27.0 - 33.0 pg [facility].; [facility], [facility]. MCHC (RBC) [Mass/Vol] 30.5 g/dL Abnormal 32.0 - 36.0 g/dL [facility].; [facility], [facility]. MCV (RBC) [Entitic vol] 72.3 fL Abnormal 80.0 - 100.0 fL [facility].; [facility], [facility]. Monocytes (Bld) [#/Vol] 0.619 10*3/uL Normal 200 - 950 {cells/uL} [facility].; [facility], [facility]. Monocytes/100 WBC (Bld) 8.6 % Normal [facility].; [facility], [facility]. Neutrophils (Bld) [#/Vol] 5.198 10*3/uL Normal 1500 - 7800 {cells/uL} [facility], [facility].; [facility], [facility]. Neutrophils/100 WBC (Bld) 72.2 % Normal [facility].; [facility], [facility]. Platelet mean volume (Bld) [Entitic vol] 9.7 fL Normal 7.5 - 12.5 fL [facility] [email or web address]. Platelets (Bld) [#/Vol] 249 10*3/uL Normal 140 - 400 [facility] [email or web address]. RBC (Bld) [#/Vol] 4.80 10*6/uL Normal 3.80 - 5.1 0 {Million/uL} [email or web address] WBC (Bld) [#/Vol] 7.2 10*3/uL Normal 3.8 - 10.8 [email or web address] No Panel Informationon 05-17 IRON, TOTAL 24 ug/dL Abnormal 45 - 160 ug/dL [facility] [email or web address] ECHOCARDIOGRAMOrdered By: Me shilo Crews on 04-05-2021 APPR ALFREDO REPORT Other Information Study Quality: Adequate Conclusion Mild biatrial enlargement with borderline RV dilatation, intact function. Normal LV size and function with mild moderate concentric LVH and ejection fraction greater than 55%. Mild ascending aortic dilatation No significant valvular or pericardial abnormality. Study would suggest a component of hypertensive cardiovascular disease without pulmonary hypertension. Left Ventricle The left ventricle is normal size. Left ventricular systolic function is normal. Mild to moderate concentric left ventricular hypertrophy. There is normal LV segmental wall motion. Left ventricular filling pattern is normal for age. LVEF is 55-60%. Right Ventricle Right ventricle is borderline dilated. Right ventricular systolic function is grossly normal. Atria Left atrium is mildly dilated. Right atrium is mildly dilated. Aortic Valve The aortic valve is normal in structure. There is no aortic valvular stenosis. No aortic regurgitation is present. Mitral Valve The mitral valve is normal in structure. Trace mitral regurgitation. Tricuspid Valve The tricuspid valve is normal in structure. Trace tricuspid regurgitation. The RVSP is 30-35 mmHg. Pulmonic Valve The pulmonary valve is normal in structure. Great Vessels Aortic root is mildly dilated. The ascending aorta is mildly dilated. Pericardium There is no pericardial effusion. EXAM: Comprehensive 2D, Doppler, and color-flow Echocardiogram 2D Dimensions IVSd 1.4 cm F: 0.6-0.9 LVEF (Jaimes's) 61.20 % F: 54 - 74 PWd 1.4 cm F: 0.6 - 0.9 EF AP4-a2DQ 60.66 % LVDd 5.5 cm F: 3.8 - 5.2 EF AP2-a2DQ 62.25 % LVDs 4.34 cm F: 2.2 - 3.5 EF BP-a2DQ 61.20 % Aortic Root 3.40 cm F: 2.7 - 3.3 LVSV 51 mL Aortic Root Index 1.2 cm/m2 LV Volume 131.35 mL F: 46 - 106 Ascending Aorta 3.87 cm F: 2.3 - 3.1 LV Volume Index 47.76 mL/m2 F: 29 - 61 Ascending Aorta Index: 1.4 cm/m2 LA Volume 84.6 mL Left Atrium 4.80 cm F: 2.7 - 3.8 LA Volume Index 30.76 mL/m2 (M/F) 16-34 LVOT 2.20 cm (M/F) 1.5-2.5 RV Major 3.60 cm TAPSE 1.7 >1.7 cm RV Minor 8.04 cm IVC 2.9 cm RVIDd 4.71 cm (M/F) 2.5-4.1 Right Atrium 5.6 cm (M/F) 2.9-4.5 LV Diastology E/A Ratio 1.6 Septal E' 0.10 (<.07 m/s) LAT E' 0.10 (<.10 m/s) E/LAT E' Ratio 13.08 (>14) E/E AVG 13.08 Septal E/E' 13.08 Aortic Valve LVOT Max 1.07 (0.7-1.1 m/s) LVOT VTI 20.52 cm AV DI 0.63 (>0.25) AoV Peak Oj. 1.45 (0.5-1.3 m/s) AV Vmean 1.03 m/s AO Peak GR. 8.41 mmHg AO Mean GR. 4.67 (<5 mmHg) AO VTI 32.4 (18-25 cm) AMENA (VTI) 2.41 (2.5-4.5 cm2) Mitral Valve MV E Max Oj. 1.4 (0.4-1.3 m/s) MV A Velocity 0.88 (0.4-1.3 m/s) E/A Ratio 1.54 MV PHT 68.27 ms MVA PHT 3.22 cm2 MV Dec Scurry 970.89 cm/s2 MV Decel. Time 139.71 (160-240 ms) Pulmonary Valve PV Peak Velocity 0.8 (0.5-1.5 m/s) PV maxPG 2.8 mmHg PV Vmax 0.8 m/s Tricuspid Valve TR P. Velocity 2.62 m/s RAP Estimate 3 mmHg RVSP 30.43 mmHg TR maxPG 27.43 mmHg DE[facility] User, Interfaces - 04/05/2021 12:17 PM EDT APPROVED REPORT Other Information Study Quality: Adequate Conclusion Mild biatrial enlargement with borderline RV dilatation, intact function. Normal LV size and function with mild moderate concentric LVH and ejection fraction greater than 55%. Mild ascending aortic dilatation No significant valvular or pericardial abnormality. Study would suggest a component of hypertensive cardiovascular disease without pulmonary hypertension. Left Ventricle The left ventricle is normal size. Left ventricular systolic function is normal. Mild to moderate concentric left ventricular hypertrophy. There is normal LV segmental wall motion. Left ventricular filling pattern is normal for age. LVEF is 55-60%. Right Ventricle Right ventricle is borderline dilated. Right ventricular systolic function is grossly normal. Atria Left atrium is mildly dilated. Right atrium is mildly dilated. Aortic Valve The aortic valve is normal in structure. There is no aortic valvular stenosis. No aortic regurgitation is present. Mitral Valve The mitral valve is normal in structure. Trace mitral regurgitation. Tricuspid Valve The tricuspid valve is normal in structure. Trace tricuspid regurgitation. The RVSP is 30-35 mmHg. Pulmonic Valve The pulmonary valve is normal in structure. Great Vessels Aortic root is mildly dilated. The ascending aorta is mildly dilated. Pericardium There is no pericardial effusion. EXAM: Comprehensive 2D, Doppler, and color-flow Echocardiogram 2D Dimensions IVSd 1.4 cm F: 0.6-0.9LVEF (Jaimes's)61.20 % F: 54 - 74 PWd 1.4 cm F: 0.6 - 0.9EF AP4-a2DQ60.66 % LVDd 5.5 cm F: 3.8 - 5.2EF AP2-a2DQ62.25 % LVDs 4.34 cm F: 2.2 - 3.5EF BP-a2DQ61.20 % Aortic Root 3.40 cm F: 2.7 - 3.3IHCX21 mL Aortic Root Index1.2 cm/m2LV Xurauy686.35 mL F: 46 - 106 Ascending Aorta 3.87 cm F: 2.3 - 3.1LV Volume Index47.76 mL/m2 F: 29 - 61 Ascending Aorta Index: 1.4 cm/m2LA Fkghfs64.6 mL Left Atrium 4.80 cm F: 2.7 - 3.8LA Volume Index30.76 mL/m2 (M/F) 16-34 LVOT2.20 cm (M/F) 1.5-2.5RV Major 3.60 cm TAPSE 1.7 >1.7 cmRV Minor8.04 cm IVC2.9 cmRVIDd4.71 cm (M/F) 2.5-4.1 Right Atrium 5.6 cm (M/F) 2.9-4.5 LV Diastology E/A Ratio 1.6Septal E'0.10 (<.07 m/s) LAT E'0.10 (<.10 m/s)E/LAT E' Ratio13.08 (>14) E/E AVG 13.08Septal E/E'13.08 Aortic Valve LVOT Max1.07 (0.7-1.1 m/s)LVOT VTI20.52 cm AV DI0.63 (>0.25)AoV Peak Oj.1.45 (0.5-1.3 m/s) AV Vmean 1.03 m/Brian Peak GR.8.41 mmHg AO Mean GR.4.67 (<5 mmHg)AO VTI32.4 (18-25 cm) AMENA (VTI)2.41 (2.5-4.5 cm2) Mitral Valve MV E Max Oj.1.4 (0.4-1.3 m/s)MV A Velocity0.88 (0.4-1.3 m/s) E/A Ratio1.54MV PHT68.27 ms MVA PHT3.22 cm2MV Dec Scurry 970.89 cm/s2 MV Decel. Dnvx573.71 (160-240 ms) Pulmonary Valve PV Peak Velocity0.8 (0.5-1.5 m/s)PV maxPG2.8 mmHg PV Vmax0.8 m/s Tricuspid Valve TR P. Velocity2.62 m/sRAP Estimate3 mmHg RVSP30.43 mmHgTR maxPG 27.43 mmHg [facility] BMP FASTINGon 03-22-2021 Creatinine [Mass/Vol] 0.66 mg/dL Normal 0.52-1.04 [facility] Comment on above: Performed By: #### C OVID #### Testing performed at [address] [address] EST. GFR, >60 Normal [facility] Comment on above: Performed By: #### C OVID #### Testing performed at [address] [address] EST. GFR,Non >60 Normal [facility] Comment on above: Performed By: #### C OVID #### Testing performed at [address] [address] GFR Information Average GFR for 50-5 9 years old = 93. Normal [facility] Comment on above: Result Comment: Knowledge Management Consultant randi Kidney disease, GFR = <60. Kidney failure, GFR = <15. The GFR estimate is not adjusted for extreme body surface area or acute process, nor has it been validated for women or ethnic groups other than and . Performed By: #### C OVID #### Testing performed at [address] [address] Urea nitrogen [Mass/Vol] 14 mg/dL Normal 7-20 [facility] Comment on above: Performed By: #### C OVID #### Testing performed at [address] [address] Anion gap [Moles/Vol] 11 mmol/L Normal 8-16 [facility] Comment on above: Performed By: #### C OVID #### Testing performed at [address] [address] Calcium [Mass/Vol] 8.8 mg/dL Normal 8.4-10.2 [facility] Comment on above: Performed By: #### C OVID #### Testing performed at [address] [address] Chloride [Moles/Vol] 100 mmol/L Normal 98-107 [facility] Comment on above: Performed By: #### C OVID #### Testing performed at [address] [address] CO2 [Moles/Vol] 27 mmol/L Normal 22-30 [facility] Comment on above: Performed By: #### C OVID #### Testing performed at [address] [address] Glucose [Mass/Vol] 91 mg/dL Normal 70-100 [facility] Comment on above: Result Comment: NORMAL <100 mg/dL PREDIABETES 101-126 mg/dL DIABETES 126 mg/dL or higher Performed By: #### C OVID #### Testing performed at [address] [address] Potassium [Moles/Vol] 4.0 mmol/L Normal 3.5-5.1 [facility] Comment on above: Performed By: #### C OVID #### Testing performed at [address] [address] Sodium [Moles/Vol] 138 mmol/L Normal 136-145 [facility] Comment on above: Performed By: #### C OVID #### Testing performed at [address] [place] [address] FAX REQUESTon 03-22-2021 FAX TO [phone] Normal [facility] Comment on above: Performed By: #### C OVID #### Testing performed at [address] [place] [address] LIPID PROFILEon 03-22-2021 Cholesterol [Mass/Vol] 148 mg/dL Normal 100-199 [facility] Comment on above: Performed By: #### C OVID #### Testing performed at [address] [address] Cholesterol in HDL [Mass/Vol] 46 mg/dL Normal 40-60 [facility] Comment on above: Performed By: #### C OVID #### Testing performed at [address] [address] Cholesterol in LDL [Mass/Vol] 90 mg/dL Normal 0-100 [facility] Comment on above: Performed By: #### C OVID #### Testing performed at [address] [address] Cholesterol in VLDL [Mass/Vol] 12 mg/dL Normal 5.0-25.0 [facility] Comment on above: Performed By: #### C OVID #### Testing performed at [address] [address] Cholesterol.total/Chol esterol in HDL [Mass ratio] 3.22 {ratio} Normal [facility] Comment on above: Result Comment: RISK TOTAL/HDL RATIO MEN WOMEN 1/2 AVERAGE 3.43 3.27 AVERAGE 4.97 4.44 2X AVERAGE 9.55 7.05 3X AVERAGE 23.99 11.04 Performed By: #### C OVID #### Testing performed at [address] [address] Triglyceride [Mass/Vol] 59 mg/dL Normal <150 [facility] Comment on above: Performed By: #### C OVID #### Testing performed at [address] [address] Laboratory - Chemistry and C hemistry - challengeon 03-21-2021 Calcium [Mass/Vol] 8.8 mg/dL Normal 8.4 - 10. 6 mg/dL [facility] [employer] Chloride [Moles/Vol] 100 mmol/L Normal 98 - 11 0 mmol/L [facility] [employer] Cholesterol [Mass/Vol] 148 mg/dL Normal 0 - 2 00 mg/dL [facility] Cholesterol in HDL [Mass/Vol] 46 mg/dL Normal 40 - 60 mg/dL [employer] Cholesterol in LDL [Mass/Vol] 90 mg/dL Normal 50.0 - 130.0 mg/dL [facility] [employer] Cholesterol in VLDL [Mass/Vol] 12 mg/dL Normal [facility] [employer] Cholesterol.total/Chol esterol in HDL [Mass ratio] 3.22 {ratio} Normal 0 - 5.0 [facility]; [facility], [facility] CO2 [Moles/Vol] 27 {kenya/L} Normal 22.0 - 32.0 {kenya/L} [facility]; [facility], [facility] Creatinine [Mass/Vol] 0.66 mg/dL Normal 0.5 - 1.2 mg/dL [facility]; [facility], [facility] Glucose [Mass/Vol] 91 mg/dL Normal 60 - 100 mg/dL [facility]; [facility], [facility] Potassium [Moles/Vol] 4.0 mmol/L Normal 3.5 - 5.0 mmol/L [facility]; [facility], [facility] Sodium [Moles/Vol] 138 mmol/L Normal 136 - 145 mmol/L [facility]; [facility], [facility] Triglyceride [Mass/Vol] 59 mg/dL Normal 40 - 150 mg/dL [facility]; [facility], [facility] Urea nitrogen [Mass/Vol] 14 mg/dL Normal 8 - 22 mg/dL [facility]; [facility], [facility] Urea nitrogen/Creatinine [Mass ratio] - Normal 0 - 30 [facility]; [facility] No Panel Informationon 03-21 ELECTROLYTE BALANCE - Normal [facility]; [facility], [facility] GFR >60 Normal [facility]; [facility], [facility] GFR2 >60 Normal [facility]; [facility] Laboratory - Chemistry and C hemistry - challengeon 03-14-2021 Albumin [Mass/Vol] 3.9 g/dL Normal 3.6 - 5.1 g/dL [facility]; [facility], [facility] Albumin/Globulin [Mass ratio] 1.3 {ratio} Normal 1.0 - 2.5 [facility]; [facility], [facility] ALP [Catalytic activity/Vol] 106 U/L Normal 37 - 153 U/L [facility], [facility] ALT [Catalytic activity/Vol] 15 U/L Normal 6 - 29 U/L [facility]; [facility], [facility]. AST [Catalytic activity/Vol] 15 U/L Normal 10 - 35 U/L [facility], [facility]. Bilirubin [Mass/Vol] 0.3 mg/dL Normal 0.2 - 1 .2 mg/dL [facility], [facility].; [facility], [facility]. Calcium [Mass/Vol] 8.9 mg/dL Normal 8.6 - 10. 4 mg/dL [facility].; [facility], [facility]. Chloride [Moles/Vol] 103 mmol/L Normal 98 - 11 0 mmol/L [facility].; [facility], [facility]. CO2 [Moles/Vol] 28 mmol/L Normal 20 - 32 mmol/L [facility].; [facility], [facility]. Creatinine [Mass/Vol] 0.72 mg/dL Normal 0.50 - 1.05 mg/dL [facility], [facility].; [facility], [facility]. GFR/1.73 sq M.predicted among blacks MDRD (S/P/Bld) [Vol rate/Area] 111 mL/min/{1.73_m2} Normal [facility].; [facility], [facility] Glucose [Mass/Vol] 108 mg/dL Abnormal 65 - 99 mg/dL [facility], [facility].; [facility], [facility]. Natriuretic peptide B (Bld) [Mass/Vol] 45 pg/mL Normal [facility].; [facility], [facility] Potassium [Moles/Vol] 4.3 mmol/L Normal 3.5 - 5.3 mmol/L [facility].; [facility], [facility]. Protein [Mass/Vol] 7.0 g/dL Normal 6.1 - 8.1 g/dL [facility], [facility].; [facility], [facility] [facility]. Sodium [Moles/Vol] 138 mmol/L Normal 135 - 146 mmol/L [facility], [facility].; [facility], [facility]. TSH Qn 2.90 m[IU]/L Normal [facility].; [facility], [facility] Urea nitrogen [Mass/Vol] 13 mg/dL Normal 7 - 25 mg/dL [facility].; [facility] Laboratory - Hematology and Cell countson 03-14-2021 Basophils (Bld) [#/Vol] 0.03 10*3/uL Normal 0 - 200 {cells/uL} [facility].; [facility], [facility] Basophils/100 WBC (Bld) 0.4 % Normal [facility].; [facility], [facility] Eosinophils (Bld) [#/Vol] 0.644 10*3/uL Abnormal 15 - 500 {cells/uL} [facility].; [facility], [facility] Eosinophils/100 WBC (Bld) 8.7 % Normal [facility].; [place] Ad[place] [facility], [facility] Erythrocyte distribution width (RBC) [Ratio] 16.9 % Abnormal 11.0 - 15.0 % [facility].; [place] Adreal [facility], [facility] Hematocrit (Bld) [Volume fraction] 35.2 % Normal 35.0 - 45.0 % [facility].; [place] Adreal [facility], [facility] Hemoglobin (Bld) [Mass/Vol] 10.7 g/dL Abnormal 11.7 - 15.5 g/dL [facility].; [facility], [facility]. Lymphocytes (Bld) [#/Vol] 1.221 10*3/uL Normal 850 - 3900 {cells/uL} [facility], [facility].; [place] Adreal [facility], [facility] Lymphocytes/100 WBC (Bld) 16.5 % Normal [facility].; [place], [facility]. MCH (RBC) [Entitic mass] 22.1 pg Abnormal 27.0 - 33.0 pg [facility].; [place] Adreal [facility], [facility]. MCHC (RBC) [Mass/Vol] 30.4 g/dL Abnormal 32.0 - 36.0 g/dL [facility], [facility].; [place] Adreal [facility], [facility]. MCV (RBC) [Entitic vol] 72.7 fL Abnormal 80.0 - 100.0 fL [facility].; [place] Adreal [facility], [facility]. Monocytes (Bld) [#/Vol] 0.511 10*3/uL Normal 200 - 950 {cells/uL} [facility].; [place] Monocytes/100 WBC (Bld) 6.9 % Normal [facility]; [facility] Neutrophils (Bld) [#/Vol] 4.995 10*3/uL Normal 1500 - 7800 {cells/uL} [facility].; [place], [employer] Neutrophils/100 WBC (Bld) 67.5 % Normal [facility]; [place] Platelet mean volume (Bld) [Entitic vol] 10.0 fL Normal 7.5 - 12.5 fL [facility].; [place] Platelets (Bld) [#/Vol] 258 10*3/uL Normal 140 - 400 [facility]; [place] Pix[place], [employer] RBC (Bld) [#/Vol] 4.84 10*6/uL Normal 3.80 - 5.1 0 {Million/uL} [facility].; [place]. WBC (Bld) [#/Vol] 7.4 10*3/uL Normal 3.8 - 10.8 [facility].; [place] [employer] [facility] No Panel Informationon 03-14 BUN/CREATININE RATIO NOT APPLICABLE Normal 6 - 22 [facility]; [place] [facility] eGFR NON-AFR. COMORAN [address] [facility]; [place] [facility] [facility] GLOBULIN 3.1 Normal 1.9 - 3.7 [facility].; [place] [employer] [facility] Basic Metabolic Panelon 07-0 Anion gap [Moles/Vol] 7 mmol/L [place] Calcium [Mass/Vol] 8.5 mg/dL 8.4 - 10. 4 mg/dL [place] Chloride [Moles/Vol] 106 mmol/L 98 - 10 7 mmol/L [place] CO2 [Moles/Vol] 24 mmol/L 22 - 30 mmol/L [place] Creatinine [Mass/Vol] 0.67 mg/dL 0.52 - 1.25 mg/dL [place] EGFR IF NonAfrican [place] >90.0 >60 mL/min [place] Comment on above: KDIGO guidelines pro vide the following GFR categories: Stage GFR(ml/min/1.73 m2) Terms G1 >=90 Normal or high G2 60-89 Mildly decreased* G3a 45-59 Mildly to moderately decreased G3b 30-44 Moderately to severely decreased G4 15-29 Severely decreased G5 <15 Kidney failure *Relative to young adult level. In the absence of evidence of kidney damage, neither GFR category G1 nor G2 fulfill the criteria for CKD. The CKD-EPI equation is validated in individuals 18 years of age and older. Currently the best equation for estimating glomerular filtration rate (GFR) from serum creatinine in children is the Bedside Arechiga equation. It is less accurate in patients with extremes of muscle mass, restriction of dietary protein, ingestion of creatine, extra-renal metabolism of creatinine, or treatment with medications that affect renal tubular creatinine secretion. GFR/1.73 sq M predicted among blacks MDRD (S/P/Bld) [Vol rate/Area] mL/min/{1.73_m2} >60 mL/min [place] Glucose [Mass/Vol] 101 mg/dL High 70 - 100 mg/dL [place] Interpretation and review of laboratory results Abnormal [place] Potassium [Moles/Vol] 4.2 mmol/L 3.5 - 5.1 mmol/L [place] Sodium [Moles/Vol] 137 mmol/L 135 - 145 mmol/L [place] Urea nitrogen [Mass/Vol] 14 mg/dL 7 - 20 mg/dL [place] Test Performed by [facility], [address] [place] [id number] [place], [place] CT Abdomen Pelvis Wo Contras ton 06-01-2020 Patient Name: JESUSITA ENGLAND ---CT--- Exam Date/Time 06/01/2020 01:53:[address] Abdomen/Pelvis (No PO, No IV) Ordering Physician KIMBERLY SAVAGE RYAN Accession Number [id number] CPT4 Codes 79166 (CT Abdomen/Pelvis (No PO, No IV)) Reason For Exam left flank pain Report CT ABDOMEN AND PELVIS WITHOUT CONTRAST CLINICAL INDICATION: Left flank pain Serial axial CT images of the abdomen and pelvis were acquired without intravenous contrast. Oral contrast was not given for this study. COMPARISON: None FINDINGS: Images are limited due to the patient's large body habitus. There is no hydronephrosis, hydroureter, or perinephric stranding bilaterally. No renal or ureteral stones are identified. The urinary bladder is empty, limiting evaluation. The uterus does not appear enlarged. The gallbladder has been removed. The liver, spleen, pancreas, and adrenal glands are grossly unremarkable in appearance on this noncontrast examination. No retroperitoneal or pelvic lymphadenopathy is seen. The abdominal aorta is normal in caliber. The large and small bowel is unremarkable in appearance, without evidence of thickening or dilatation. No free fluid is seen within the abdomen or pelvis. There is no free air under the diaphragm. The visualized portion of the lung bases are clear. No lytic or blastic lesions are seen on the bone windows. IMPRESSION: No renal or ureteral stones are seen. No hydronephrosis, hydroureter, or perinephric stranding is seen bilaterally. No acute findings are seen on this examination to explain the patient's pain. This study is somewhat limited due to streak artifact resulting from the patient's large body habitus. Report Dictated on Workstation: [id number] --- Final --- Dictated: 06/01/2020 2:10 am Dictating Physician: MD JONES JONATHAN R Signed Date and Time: 06/01/2020 2:14 am Signed by: MD JONES JONATHAN R Transcribed Date and Time: 06/01/2020 2:10 [place] Marcio, [facility] Incoming Radiology Results From [facility] - 06/01/2020 2:15 AM EDT Patient Name: JESUSITA ENGLAND ---CT--- Exam Date/Time 06/01/2020 01:53:[address] Abdomen/Pelvis (No PO, No IV) Ordering Physician KIMBERLY SAVAGE RYAN Accession Number [id number] CPT4 Codes 57200 (CT Abdomen/Pelvis (No PO, No IV)) Reason For Exam left flank pain Report CT ABDOMEN AND PELVIS WITHOUT CONTRAST CLINICAL INDICATION: Left flank pain Serial axial CT images of the abdomen and pelvis were acquired without intravenous contrast. Oral contrast was not given for this study. COMPARISON: None FINDINGS: Images are limited due to the patient's large body habitus. There is no hydronephrosis, hydroureter, or perinephric stranding bilaterally. No renal or ureteral stones are identified. The urinary bladder is empty, limiting evaluation. The uterus does not appear enlarged. The gallbladder has been removed. The liver, spleen, pancreas, and adrenal glands are grossly unremarkable in appearance on this noncontrast examination. No retroperitoneal or pelvic lymphadenopathy is seen. The abdominal aorta is normal in caliber. The large and small bowel is unremarkable in appearance, without evidence of thickening or dilatation. No free fluid is seen within the abdomen or pelvis. There is no free air under the diaphragm. The visualized portion of the lung bases are clear. No lytic or blastic lesions are seen on the bone windows. IMPRESSION: No renal or ureteral stones are seen. No hydronephrosis, hydroureter, or perinephric stranding is seen bilaterally. No acute findings are seen on this examination to explain the patient's pain. This study is somewhat limited due to streak artifact resulting from the patient's large body habitus. Report Dictated on Workstation: [id number] --- Final --- Dictated: 06/01/2020 2:10 am Dictating Physician: MD JONES JONATHAN R Signed Date and Time: 06/01/2020 2:14 am Signed by: MD JONES JONATHAN R Transcribed Date and Time: 06/01/2020 2:10 [place] Hemogram (CBC)on 06-01-2020 Erythrocyte distribution width (RBC) [Ratio] 19.4 % High 11.5 - 14.5 % [place] Hematocrit (Bld) [Volume fraction] 33.5 % Low 35 - 47 % [place] Hemoglobin (Bld) [Mass/Vol] 10.5 g/dL Low 11.7 - 16 g/dL [place] Interpretation and review of laboratory results Abnormal [place] MCH (RBC) [Entitic mass] 21.7 pg Low 26 - 34 pg [place] MCHC (RBC) [Mass/Vol] 31.4 % Low 32 - 36 % [place] MCV (RBC) [Entitic vol] 69.1 fL Low 79 - 98 fL [place] Platelet mean volume (Bld) [Entitic vol] 8.5 fL 7.4 - 10.4 fL [place] Platelets (Bld) [#/Vol] 232 10*3/uL 140 - 440 10*3/uL [place] RBC (Bld) [#/Vol] 4.86 10*6/uL 3.8 - 5.2 10*6/uL [place] WBC (Bld) [#/Vol] 7.2 10*3/uL 3.6 - 10.7 10*3/uL [place] Test Performed by [id number] [place] [address] Otheron 06-01-2020 Test Performed by [id number] [place] [address] , Urineon 0 Beta HCG ( test) Ql (U) Negative Negative [place] Comment on above: is the mos t common reason for HCG in urine, although choriocarcinoma, hydatidiform mole, and certain nontropho- blastic malignancies also result in detectable urinary HCG levels. Sensitivity = 20mIU/mL. Urinalysison 06-01-2020 Appearance (U) Clear Clear [place] Comment on above: . Bilirubin Urine Negative Negative mg/dL [place] Comment on above: . Color (U) Yellow Lt. Yellow [place] Comment on above: . Glucose, Ur Normal Normal (<70) mg/dL [place] Comment on above: . Ketones Ql (U) Negative Negative mg/dL [place] Comment on above: . LEUKOCYTES, UA Negative Negative [place]/uL [place] Comment on above: . Nitrite, Urine Negative Negative [place] Comment on above: . Occult Blood,Urine Negative Negative mg/dL [place] Comment on above: . pH (U) 5.5 [pH] [place] Comment on above: . Protein (U) [Mass/Vol] Negative Negat emmy mg/dL [place] Comment on above: . Specific [place], Urine 1.023 [place] Comment on above: . Urobilinogen, Urine Normal Normal ( 0-1) mg/dL [place] Comment on above: . CHEST PA AND LATERALon 03-01 CHEST PA AND LATERAL Final ReportAccession No: [id number] Performed: Mar 01 2018 2:30PMExamination: CHEST PA AND LATERALTWO-VIEW CHESTCOMPARISON: None.REASON FOR STUDY: Fever.REPORT: Trachea is midline. Mediastinum is not widened. Heart size ismildlyprominent. The lungs show slight chronic changes centrally without nodule,infiltrate, or effusion. No pneumothorax is noted. No degenerativechanges arenoted shoulder girdles and thoracic spine.IMPRESSION:Nonacut e two-view chest with chronic changes and mild cardiomegaly.Interpretin g Physician: GRACIELA HUIZAR D.O.Trans: md : cc: Normal [facility] Vital Signs Date Time Vital Sign Value Performing Clinician Facility 06-09-2025 13:160400 Body height 160.66 cm [facility], [facility].; [facility], [facility]. 06-09-2025 13:16-0400 Body mass index (BMI) [Ratio] 92.62 kg/m2 [facility], [facility].; [facility], [facility]. 06-09-2025 13:16-040 Body surface area Derived from formula 2.93 m2 Ceci Suarez [employer]ENT [facility], [facility].; [facility], [facility]. 06-09-2025 13:16040 Body weight 239.05 kg [facility], [facility].; [facility], [facility]. 06-09-2025 13:16-040 Diastolic blood pressure 82 mm[Hg] [facility], [facility].; [facility], [facility]. Comment on above: Patient Position: Sitting; Cuff Location : Left Arm; Cuff Size: Standard 06-09-2025 13:16-0400 Heart rate 79 /min Ceci Powersho HUDSON [employer]. Comment on above: Pattern: Regular 06-09-2025 13:16-0400 Systolic blood pressure 129 mm[Hg] Ceci Suarez BECCA [employer], [employer]. Comment on above: Patient Position: Sitting; Cuff Location : Left Arm; Cuff Size: Standard 11-11-2024 08:20-0500 Body weight 232.65 kg Yamile Adreal Work Phone: [facility] 11-11-2024 08:20-0500 Diastolic blood pressure 77 mm[Hg] Yamile Inline.me DO Work Phone: [facility] 11-11-2024 08:20-0500 Heart rate 93 /min Yamile Inline.me DO Work Phone: [facility] 11-11-2024 08:20-0500 Systolic blood pressure 130 mm[Hg] Yamile Inline.me DO Work Phone: [facility] 06-13-2024 15:06-0400 Body height 160.66 cm Alondra Agusto Crews PA-C Work Phone: [employer].; [employer] 06-13-2024 15:06-0400 Body mass index (BMI) [Ratio] 88.4 kg/m2 Alondra Agusto Crews PA-C Work Phone: [employer].; [employer] 06-13-2024 15:06-0400 Body surface area Derived from formula 2.87 m2 Alondra Agusto Crews PA-C Work Phone: [employer].; [employer] 06-13-2024 15:06-0400 Body weight 228.16 kg Alondra Agusto Crews PA-C Work Phone: [employer].; [employer] 06-13-2024 15:06-0400 Diastolic blood pressure 75 mm[Hg] Alondra Agusto Crews PA-C Work Phone: [place] [facility].; [employer]. Comment on above: Patient Position: Sitting; Cuff Location : Left Arm; Cuff Size: Standard 06-13-2024 15:06-0400 Heart rate 76 /min Alondra Agusto ZABALA-Jennifer Work Phone: [facility].; [employer]. Comment on above: Pattern: Regular 06-13-2024 15:06-0400 Systolic blood pressure 138 mm[Hg] Alondra Liz Mars ZABALA-Jennifer Work Phone: [place] [employer].; [employer]. Comment on above: Patient Position: Sitting; Cuff Location : Left Arm; Cuff Size: Standard 05-12-2024 10:07-0400 Body height 165.1 cm Jazlyn Marie LPN [facility].; [email or web address] 05-12-2024 10:07-0400 Body mass index (BMI) [Ratio] 81.21 kg/m2 Jazlyn Marie [facility] Adreal [facility].; [email or web address] 05-12-2024 10:07-0400 Body surface area Derived from formula 2.89 m2 Jazlyn Marie LPN [place] [facility].; [employer], [employer]. 05-12-2024 10:07-0400 Body weight 221.36 kg Jazlyn Marie [employer]ERSON[employer] INSURANCE AGENT [place] [facility].; [email or web address] 05-12-2024 10:07-0400 Diastolic blood pressure 78 mm[Hg] Jazlyn Marie LPN [facility].; [employer]. Comment on above: Patient Position: Sitting; Cuff Location : Right Arm; Cuff Size: Standard 05-12-2024 10:07-0400 Heart rate 76 /min Jazlyn Marie LPN [place] [facility].; [employer]. Comment on above: Pattern: Regular 05-12-2024 10:07-0400 Systolic blood pressure 130 mm[Hg] Jazlyn Marie LPN [place] [employer]. Comment on above: Patient Position: Sitting; Cuff Location : Right Arm; Cuff Size: Standard 04-15-2024 10:34-0400 Body temperature 97.8 [degF] Alondra Agusto Crews PA-C Work Phone: [facility].; [email or web address] 04-15-2024 10:34-0400 Diastolic blood pressure 67 mm[Hg] Alondra Agusto Crews PA-C Work Phone: [facility].; [email or web address] Comment on above: Patient Position: Sitting; Cuff Location : Left Arm; Cuff Size: Standard 04-15-2024 10:34-0400 Heart rate 70 /min Alondra Agusto Crews PA-C Work Phone: [facility].; [email or web address]. Comment on above: Pattern: Regular 04-15-2024 10:34-0400 Inhaled oxygen concentration 21 % Alondra Liz Crews PA-C Work Phone: [facility].; [email or web address]. Comment on above: Room air 04-15-2024 10:34-0400 SaO2% (BldA) [Mass fraction] 98 % Alondra Agusto Crews PA-C Work Phone: [facility].; [email or web address] 04-15-2024 10:34-0400 Systolic blood pressure 115 mm[Hg] Alondra Agusto Crews PA-C Work Phone: [facility]; [email or web address]. Comment on above: Patient Position: Sitting; Cuff Location : Left Arm; Cuff Size: Standard 04-08-2024 15:38-0400 Body temperature 98 [degF] PA Alondra Piedraer PA Work Phone: [facility] 04-08-2024 15:38-0400 Diastolic blood pressure 78 mm[Hg] PA Alondra Piedraer PA Work Phone: [facility] 04-08-2024 15:38-0400 Heart rate 97 /min PA Alondra Crews PA Work Phone: [facility] 04-08-2024 15:38-0400 Respiratory rate 16 /min PA Alondra Crews PA Work Phone: [facility] 04-08-2024 15:38-0400 SaO2% (BldA) [Mass fraction] 96 % PA Alondra Crews PA Work Phone: [facility] 04-08-2024 15:38-0400 Systolic blood pressure 140 mm[Hg] PA Alondra Crews PA Work Phone: [facility] 04-06-2024 14:06-0400 Body height 165.1 cm PA Alondra Crews PA Work Phone: [facility] 04-06-2024 14:06-0400 Body weight 227.2 kg PA Alondra Crews PA Work Phone: [facility] 04-04-2024 23:36-0400 Body mass index (BMI) [Ratio] 83.3 kg/m2 PA Alondra Crews PA Work Phone: [facility] 04-04-2024 23:00-0400 Body temperature 98 [degF] [facility] 04-04-2024 23:00-0400 Diastolic blood pressure 75 mm[Hg] [facility] 04-04-2024 23:00-0400 Heart rate 89 /min [facility] 04-04-2024 23:00-0400 Respiratory rate 22 /min [facility] 04-04-2024 23:00-0400 SaO2% (BldA) [Mass fraction] 94 % [facility] 04-04-2024 23:00-0400 Systolic blood pressure 114 mm[Hg] [facility] 04-04-2024 19:07-0400 Body mass index (BMI) [Ratio] 87.2 kg/m2 [facility] 04-04-2024 19:07-0400 Body weight 230.5 kg [facility] 04-04-2024 19:06-0400 Body height 162.56 cm [facility] 04-01-2024 10:51-0400 Body height 165.1 cm [facility].; [facility] 04-01-2024 10:51-0400 Body mass index (BMI) [Ratio] 84.04 kg/m2 [facility].; [facility]. 04-01-2024 10:51-0400 Body surface area Derived from formula 2.93 m2 [facility].; [facility] 04-01-2024 10:51-0400 Body weight 229.07 kg [facility].; [facility] 04-01-2024 10:51-0400 Diastolic blood pressure 79 mm[Hg] [facility].; [place] Adreal [facility], [facility]. Comment on above: Patient Position: Sitting; Cuff Location : Left Arm; Cuff Size: Standard 04-01-2024 10:51-0400 Heart rate 73 /min [facility].; [facility]. Comment on above: Pattern: Regular 04-01-2024 10:51-0400 Inhaled oxygen concentration 21 % [facility].; [facility], [facility]. Comment on above: Room air 04-01-2024 10:51-0400 SaO2% (BldA) [Mass fraction] 95 % [facility].; [facility], [facility]. 04-01-2024 10:51-0400 Systolic blood pressure 131 mm[Hg] [facility].; [place]real [facility]. Comment on above: Patient Position: Sitting; Cuff Location : Left Arm; Cuff Size: Standard 09-04-2023 10:52-0400 Body height 162.6 cm Helder Tavera MD Work Phone: [facility] [employer] 09-04-2023 10:52-0400 Body mass index (BMI) [Ratio] 80.16 kg/m2 Helder Tavera MD Work Phone: [facility] [employer] 09-04-2023 10:52-0400 Body temperature 97 [degF] Helder Tavera MD Work Phone: [facility] [employer] 09-04-2023 10:52-0400 Body weight 211.83 kg Helder Tavera MD Work Phone: [facility] [employer] 09-04-2023 10:52-0400 Diastolic blood pressure 86 mm[Hg] Helder Taevra MD Work Phone: [facility] [employer] 09-04-2023 10:52-0400 Heart rate 70 /min Helder Tavera MD Work Phone: [facility] [employer] 09-04-2023 10:52-0400 SaO2% (BldA) [Mass fraction] 96 % Helder Tavera MD Work Phone: [facility] [employer] 09-04-2023 10:52-0400 Systolic blood pressure 138 mm[Hg] Helder Tavera MD Work Phone: [facility] [employer] 08-26-2023 11:19-0400 Body height 165.1 cm Jazlyn Marie [facility], [facility].; [facility]ha Adreal [facility] [facility] 08-26-2023 11:19-0400 Body mass index (BMI) [Ratio] 78.38 kg/m2 Jazlyn Marie [facility], [facility].; [facility], [facility]. 08-26-2023 11:19-0400 Body surface area Derived from formula 2.85 m2 Jazlyn Marie PERSONAL LINES INSURANCE AGENT [facility], [facility].; [facility], [facility]. 08-26-2023 11:19-0400 Body weight 213.65 kg Jazlyn Marie [facility], [facility].; [facility]. 08-26-2023 11:19-0400 Diastolic blood pressure 82 mm[Hg] Jazlyn Marie [facility], [facility].; [facility], [facility]. Comment on above: Patient Position: Sitting; Cuff Location : Left Arm; Cuff Size: Standard 08-26-2023 11:19-0400 Heart rate 84 /min Jazlyn Marie PERSONAL LINES INSURANCE AGENT [facility], [facility].; [facility] Comment on above: Pattern: Regular 08-26-2023 11:19-0400 Systolic blood pressure 132 mm[Hg] Jazlyn Marie LPN [facility], [facility].; [facility]. Comment on above: Patient Position: Sitting; Cuff Location : Left Arm; Cuff Size: Standard 08-21-2023 11:58-0400 Body temperature 97 [degF] PA Alondra Crews PA Work Phone: [facility] 08-21-2023 11:58-0400 Diastolic blood pressure 58 mm[Hg] PA Alondra Crews PA Work Phone: 1(867)142-379749 [place] [address] 08-21-2023 11:58-0400 Heart rate 68 /min PA Alondra Crews PA Work Phone: 8(634)086-475449 [place] [address] 08-21-2023 11:58-0400 Respiratory rate 18 /min PA Alondra Crews PA Work Phone: 8(026)950-591649 [place] [address] 08-21-2023 11:58-0400 SaO2% (BldA) [Mass fraction] 97 % PA Alondra Crews PA Work Phone: 6(299)294-935349 [place] [address] 08-21-2023 11:58-0400 Systolic blood pressure 120 mm[Hg] PA Alondra Crews PA Work Phone: [facility] 08-18-2023 13:13-0400 Body height 162.56 cm PA Alondra Crews PA Work Phone: [facility] 08-18-2023 13:13-0400 Body weight 211.3 kg PA Alondra Crews PA Work Phone: [facility] 08-18-2023 01:42-0400 Body mass index (BMI) [Ratio] 79.9 kg/m2 PA Alondra Crews PA Work Phone: [facility] 08-18-2023 00:51-0400 Body temperature 101.2 [degF] PA Alondra Crews PA Work Phone: [facility] 08-18-2023 00:51-0400 Diastolic blood pressure 62 mm[Hg] PA Alondra Crews PA Work Phone: [facility] 08-18-2023 00:51-0400 Heart rate 89 /min PA Alondra Crews PA Work Phone: [facility] 08-18-2023 00:51-0400 Respiratory rate 20 /min PA Alondra Crews PA Work Phone: [facility] 08-18-2023 00:51-0400 SaO2% (BldA) [Mass fraction] 94 % PA Alondra Crews PA Work Phone: [facility] 08-18-2023 00:51-0400 Systolic blood pressure 107 mm[Hg] PA Alondra Crews PA Work Phone: [facility] 08-17-2023 23:44-0400 Body mass index (BMI) [Ratio] 82.3 kg/m2 PA Alondra Crews PA Work Phone: [facility] 08-17-2023 23:44-0400 Body weight 217.7 kg PA Alondra Crews PA Work Phone: [facility] 08-17-2023 22:20-0400 Body height 162.56 cm PA Alondra Crews PA Work Phone: [facility] 07-31-2023 13:32-0400 Body height 165.1 cm Jazlyn Marie LPN [facility], [facility]. 07-31-2023 13:32-0400 Body mass index (BMI) [Ratio] 77.38 kg/m2 Jazlyn Marie LPN [facility], [facility].; [facility], [facility]. 07-31-2023 13:32-0400 Body surface area Derived from formula 2.83 m2 Jazlyn Marie LPN [facility], [facility].; [facility], [facility]. 07-31-2023 13:32-0400 Body temperature 99.3 [degF] Jazlyn Marie LPN [facility], [facility].; [facility], [facility]. Comment on above: Method: Tympanic 07-31-2023 13:32-0400 Body weight 210.92 kg Jazlyn Ashli Marie LPN [facility], [facility].; [facility]. 07-31-2023 13:32-0400 Diastolic blood pressure 79 mm[Hg] Jazlyn Marie LPN [facility], [facility].; [facility]. Comment on above: Patient Position: Sitting; Cuff Location : Left Arm; Cuff Size: Standard 07-31-2023 13:32-0400 Heart rate 84 /min Jazlyngaudencio Marie LPN [facility], [facility].; [place] [facility], [employer]. Comment on above: Pattern: Regular 07-31-2023 13:32-0400 Systolic blood pressure 132 mm[Hg] Jazlyngaudencio Marie LPN [facility], [facility].; [facility], [facility]. Comment on above: Patient Position: Sitting; Cuff Location : Left Arm; Cuff Size: Standard 07-31-2023 09:00-0400 Body temperature 97.8 [degF] PA Alondra Crews PA Work Phone: [facility] 07-31-2023 09:00-0400 Diastolic blood pressure 90 mm[Hg] PA Alondra Crews PA Work Phone: [facility] 07-31-2023 09:00-0400 Heart rate 82 /min PA Alondra Crews PA Work Phone: [facility] 07-31-2023 09:00-0400 Respiratory rate 16 /min PA Alondra Crews PA Work Phone: [facility] 07-31-2023 09:00-0400 SaO2% (BldA) [Mass fraction] 95 % PA Alondra Crews PA Work Phone: [facility] 07-31-2023 09:00-0400 Systolic blood pressure 108 mm[Hg] PA Alondra Crews PA Work Phone: [facility] 07-31-2023 04:01-0400 Body mass index (BMI) [Ratio] 82 kg/m2 PA Alondra Crews PA Work Phone: [facility] 07-31-2023 04:01-0400 Body weight 223.4 kg PA Alondra Crews PA Work Phone: [facility] 07-29-2023 10:57-0400 Body height 165 cm PA Alondra Crews PA Work Phone: [facility] 07-25-2023 02:59-0400 Body height 165 cm PA Alondra Crews PA Work Phone: [facility] 07-25-2023 02:59-0400 Body mass index (BMI) [Ratio] 82.1 kg/m2 PA Alondra Crews PA Work Phone: [facility] 07-25-2023 02:59-0400 Body weight 223.6 kg PA Alondra Crews PA Work Phone: [phone](323)677-821549 [place] [address] 07-25-2023 01:00-0400 Body temperature 98.4 [degF] PA Alondra Crews PA Work Phone: [facility] 07-25-2023 01:00-0400 Diastolic blood pressure 71 mm[Hg] PA Alondra Crews PA Work Phone: [facility] 07-25-2023 01:00-0400 Heart rate 72 /min PA Alondra Crews PA Work Phone: [facility] 07-25-2023 01:00-0400 Respiratory rate 16 /min PA Alondra Crews PA Work Phone: [facility] 07-25-2023 01:00-0400 SaO2% (BldA) [Mass fraction] 97 % PA Alondra Crews PA Work Phone: [facility] 07-25-2023 01:00-0400 Systolic blood pressure 131 mm[Hg] PA Alondra Crews PA Work Phone: [facility] 07-16-2023 11:01-0400 Body height 165.1 cm Nora Palma LPN [facility], [facility].; [facility]. 07-16-2023 11:01-0400 Body mass index (BMI) [Ratio] 77.81 kg/m2 [facility].; [facility], [facility]. 07-16-2023 11:01-0400 Body surface area Derived from formula 2.84 m2 [facility], [facility].; [facility], [facility]. 07-16-2023 11:01-0400 Body temperature 98.2 [degF] [facility].; [place] [facility], [employer]. Comment on above: Method: Tympanic 07-16-2023 11:01-0400 Body weight 212.[address] [facility].; [facility]. 07-16-2023 11:01-0400 Diastolic blood pressure 85 mm[Hg] [facility].; [place] [facility], [employer]. Comment on above: Patient Position: Sitting; Cuff Location : Right Arm; Cuff Size: Large 07-16-2023 11:01-0400 Heart rate 69 /min [facility].; [place] [facility], [employer]. Comment on above: Pattern: Regular 07-16-2023 11:01-0400 Inhaled oxygen concentration 20 % [facility], [facility].; [place], [employer]. Comment on above: Room air 07-16-2023 11:01-0400 Inhaled oxygen concentration 21 % [facility], [facility].; [place] [facility], [employer]. Comment on above: Room air 07-16-2023 11:01-0400 SaO2% (BldA) [Mass fraction] 94 % [facility], [facility].; [place]. 07-16-2023 11:01-0400 Systolic blood pressure 125 mm[Hg] [facility], [facility].; [place], [employer]. Comment on above: Patient Position: Sitting; Cuff Location : Right Arm; Cuff Size: Large 07-08-2023 10:16-0400 Body temperature 97.8 [degF] [facility] 07-08-2023 10:16-0400 Diastolic blood pressure 46 mm[Hg] [facility] 07-08-2023 10:16-0400 Heart rate 78 /min [facility] 07-08-2023 10:16-0400 Respiratory rate 16 /min [facility] 07-08-2023 10:16-0400 SaO2% (BldA) [Mass fraction] 97 % [facility] 07-08-2023 10:16-0400 Systolic blood pressure 133 mm[Hg] [facility] 07-08-2023 08:20-0400 Body mass index (BMI) [Ratio] 82.7 kg/m2 [facility] 07-08-2023 08:20-0400 Body weight 218.6 kg [facility] 07-08-2023 08:16-0400 Body height 162.56 cm [facility] 2023 14:54-0400 Body temperature 98.3 [degF] Carlo Lyons PERSONAL LINES INSURANCE AGENT [facility] [employer] 2023 14:54-0400 Body weight 223.62 kg Carlo Lyons PERSONAL LINES INSURANCE AGENT [facility] [employer] 2023 14:54-0400 Diastolic blood pressure 74 mm[Hg] Carlo Lyons PERSONAL LINES INSURANCE AGENT [facility] [place], [employer]. Comment on above: Patient Position: Sitting; Cuff Location : Left Arm; Cuff Size: Standard 2023 14:54-0400 Heart rate 66 /min Carlo Lyons LPN [facility] [place], [employer]. Comment on above: Pattern: Regular 2023 14:54-0400 Systolic blood pressure 125 mm[Hg] Carlo Lyons PERSONAL LINES INSURANCE AGENT [facility] [place], [employer]. Comment on above: Patient Position: Sitting; Cuff Location : Left Arm; Cuff Size: Standard 02-06-2023 11:28-0500 Body temperature 98.6 [degF] Carlo Lyons PERSONAL LINES INSURANCE AGENT [place] [facility] [facility] 02-06-2023 11:28-0500 Body weight 227.25 kg Carlo Lyons LPN [facility], [facility].; [facility]. 02-06-2023 11:28-0500 Diastolic blood pressure 76 mm[Hg] Carlo Lyons LPN [facility].; [facility], [facility]. Comment on above: Patient Position: Sitting; Cuff Location : Left Arm; Cuff Size: Standard 02-06-2023 11:28-0500 Heart rate 71 /min Carlo Lyons LPN [facility], [facility].; [facility], [facility]. Comment on above: Pattern: Regular 02-06-2023 11:28-0500 Systolic blood pressure 154 mm[Hg] Carlo Lyons LPN [facility], [facility].; [facility], [facility]. Comment on above: Patient Position: Sitting; Cuff Location : Left Arm; Cuff Size: Standard 02-02-2023 08:43-0500 Body height 162.56 cm Referring Provider Unknown [facility] DO Work Phone: 02-02-2023 08:43-0500 Body mass index (BMI) [Ratio] 85.83 kg/m2 Referring Provider Unknown [facility] DO Work Phone: 02-02-2023 08:43-0500 Body surface area Derived from formula 2.89 m2 Referring Provider Unknown G[facility] DO Work Phone: 02-02-2023 08:43-0500 Body weight 226.8 kg Referring Provider Unknown [facility] DO Work Phone: 02-02-2023 08:43-0500 Diastolic blood pressure 81 mm[Hg] Referring Provider Unknown BQ[facility] DO Work Phone: 02-02-2023 08:43-0500 Heart rate 76 /min Referring Provider Unknown NT[facility] DO Work Phone: 02-02-2023 08:43-0500 Systolic blood pressure 146 mm[Hg] Referring Provider Unknown AT[facility] DO Work Phone: 09-10-2022 11:00-0400 Body height 165.1 cm Ashley Torres MA [facility].; [facility]. 09-10-2022 11:00-0400 Body mass index (BMI) [Ratio] 82.87 kg/m2 Ashley Torres MA [facility].; [facility]. 09-10-2022 11:00-0400 Body surface area Derived from formula 2.92 m2 Ashley Torres MA [facility].; [facility]. 09-10-2022 11:00-0400 Body weight 225.89 kg Ashley Torres MA [facility].; [facility]. 09-10-2022 11:00-0400 Diastolic blood pressure 56 mm[Hg] Ashley Torres MA [facility].; [facility]. Comment on above: Patient Position: Sitting; Cuff Location : Left Arm; Cuff Size: Large 09-10-2022 11:00-0400 Heart rate 94 /min Ashley Torres MA [facility].; [place] [facility]. Comment on above: Pattern: Regular 09-10-2022 11:00-0400 Systolic blood pressure 119 mm[Hg] Ashley Torres MA [facility].; [facility]. Comment on above: Patient Position: Sitting; Cuff Location : Left Arm; Cuff Size: Large 02-21-2022 10:55-0400 Body height 165.1 cm Alondra Crews PA-C Work Phone: [facility].; [place] [facility]. 02-21-2022 10:55-0400 Body mass index (BMI) [Ratio] 79.88 kg/m2 Alondra Crews PA-C Work Phone: [facility] [employer] 02-21-2022 10:55-0400 Body surface area Derived from formula 2.87 m2 Alondra Crwes PA-C Work Phone: [facility].; [email or web address] 02-21-2022 10:55-0400 Body weight 217.73 kg Alondra Liz Crews PA-C Work Phone: [email or web address]; [email or web address] 02-21-2022 10:55-0400 Diastolic blood pressure 90 mm[Hg] Alondra J Crews PA-C Work Phone: [email or web address]; [employer]. Comment on above: Patient Position: Sitting; Cuff Location : Left Arm; Cuff Size: Standard 02-21-2022 10:55-0400 Heart rate 76 /min Alondra Liz Crews PA-C Work Phone: [email or web address]; [employer]. Comment on above: Pattern: Regular 02-21-2022 10:55-0400 Inhaled oxygen concentration 20 % Alondra J Cerws PA-C Work Phone: [email or web address]. Comment on above: Room air 02-21-2022 10:55-0400 Inhaled oxygen concentration 21 % Alondra J Crews PA-C Work Phone: [email or web address]; [employer]. Comment on above: Room air 02-21-2022 10:55-0400 SaO2% (BldA) [Mass fraction] 98 % Alondra Agusto Crews PA-C Work Phone: [email or web address]; [email or web address] 02-21-2022 10:55-0400 Systolic blood pressure 161 mm[Hg] Alondra J Crews PA-C Work Phone: [email or web address]; [employer]. Comment on above: Patient Position: Sitting; Cuff Location : Left Arm; Cuff Size: Standard 12-12-2021 13:02-0500 Diastolic blood pressure 76 mm[Hg] PA Alondra Crews PA Work Phone: [facility] Work Phone: 12-12-2021 13:02-0500 Systolic blood pressure 149 mm[Hg] PA Alondra Crews PA Work Phone: [facility] Work Phone: 12-12-2021 12:56-0500 Body height 165.1 cm PA Alondra Crews PA Work Phone: [facility] Work Phone: 12-12-2021 12:56-0500 Body mass index (BMI) [Ratio] 76.2 kg/m2 PA Alondra Crews PA Work Phone: [facility] Work Phone: 12-12-2021 12:56-0500 Body temperature 97 [degF] PA Alondra Crews PA Work Phone: [facility] Work Phone: 12-12-2021 12:56-0500 Body weight 207.74 kg PA Alondra Crews PA Work Phone: [facility] Work Phone: 12-12-2021 12:56-0500 Heart rate 76 /min PA Alondra Crews PA Work Phone: [facility] Work Phone: 12-12-2021 12:56-0500 Respiratory rate 18 /min PA Alondra Crews PA Work Phone: [facility] Work Phone: 12-12-2021 12:56-0500 SaO2% (BldA) [Mass fraction] 97 % PA Alondra Crews PA Work Phone: [facility] Work Phone: 11-15-2021 11:01-0500 Body height 165.1 cm Cadence Palmer LPN [facility], [facility].; [facility], [facility]. 11-15-2021 11:01-0500 Body mass index (BMI) [Ratio] 74.22 kg/m2 Cadence Palmer LPN [facility], [facility].; [facility], [facility] 11-15-2021 11:01-0500 Body surface area Derived from formula 2.78 m2 Cadence Garciamason HUDSON [facility] [employer] 11-15-2021 11:01-0500 Body weight 202.31 kg Cadence Palmer BECCA [facility] [employer] 11-15-2021 11:01-0500 Diastolic blood pressure 80 mm[Hg] Cadence Garciamason HUDSON [facility] [employer] Comment on above: Patient Position: Sitting; Cuff Location : Left Arm; Cuff Size: Standard 11-15-2021 11:01-0500 Heart rate 67 /min Cadence Garciamason PERSONAL LINES INSURANCE AGENT [facility] [employer] Comment on above: Pattern: Regular 11-15-2021 11:01-0500 Inhaled oxygen concentration 20 % Cadencedoris Garciamason PERSONAL LINES INSURANCE AGENT [facility] [employer] Comment on above: Room air 11-15-2021 11:01-0500 Inhaled oxygen concentration 21 % Cadence Garciamason [facility] [facility] [employer], [employer]. Comment on above: Room air 11-15-2021 11:01-0500 SaO2% (BldA) [Mass fraction] 99 % Cadencemichael Palmer PERSONAL LINES INSURANCE AGENT [facility] [employer] 11-15-2021 11:01-0500 Systolic blood pressure 147 mm[Hg] Cadence Garciamason HU[place] [facility], [facility].; [employer], [employer]. Comment on above: Patient Position: Sitting; Cuff Location : Left Arm; Cuff Size: Standard 10-11-2021 14:40-0500 Body height 165.1 cm Alondra Crews PA-C Work Phone: [place] [employer].; [employer] 10-11-2021 14:40-0500 Body mass index (BMI) [Ratio] 74.38 kg/m2 Alondra ZABALA-Jennifer Work Phone: [place] [employer].; [employer] 10-11-2021 14:40-0500 Body surface area Derived from formula 2.78 m2 Alondra Liz Crews PA-C Work Phone: [email or web address]; [email or web address]. 10-11-2021 14:40-0500 Body weight 202.76 kg Alondra Liz Crews PA-C Work Phone: [email or web address].; [email or web address] 10-11-2021 14:40-0500 Diastolic blood pressure 76 mm[Hg] Alondra Liz Crews PA-C Work Phone: [email or web address].; [employer]. Comment on above: Patient Position: Sitting; Cuff Location : Left Arm; Cuff Size: Standard 10-11-2021 14:40-0500 Heart rate 81 /min Alondra Liz Crews PA-C Work Phone: [email or web address]; [employer]. Comment on above: Pattern: Regular 10-11-2021 14:40-0500 Inhaled oxygen concentration 20 % Alondra Liz Crews PA-C Work Phone: [email or web address]; [employer]. Comment on above: Room air 10-11-2021 14:40-0500 Inhaled oxygen concentration 21 % Alondra Agusto Crews PA-C Work Phone: [email or web address]; [employer]. Comment on above: Room air 10-11-2021 14:40-0500 SaO2% (BldA) [Mass fraction] 96 % Alondra Liz Cresw PA-C Work Phone: [email or web address].; [employer]. 10-11-2021 14:40-0500 Systolic blood pressure 137 mm[Hg] Alondra Agusto Crews PA-C Work Phone: [email or web address].; [employer]. Comment on above: Patient Position: Sitting; Cuff Location : Left Arm; Cuff Size: Standard 09-12-2021 14:33-0400 Body height 165.1 cm Jazlyn Andersonach [facility], [facility].; [facility] 09-12-2021 14:33-0400 Body mass index (BMI) [Ratio] 71.56 kg/m2 Jazlyn Andersonach [facility], [facility].; [place]. 09-12-2021 14:33-0400 Body surface area Derived from formula 2.74 m2 Jazlyn Carllabach [facility], [facility].; [facility]. 09-12-2021 14:33-0400 Body weight 195.05 kg Jazlyn [facility].; [email or web address] 09-12-2021 14:33-0400 Diastolic blood pressure 87 mm[Hg] Jazlyn [facility]ach [facility].; [email or web address]. Comment on above: Patient Position: Sitting; Cuff Location : Right Arm; Cuff Size: Standard 09-12-2021 14:33-0400 Heart rate 74 /min Jazlyn Carllabach [facility], [facility].; [email or web address]. Comment on above: Pattern: Regular 09-12-2021 14:33-0400 Inhaled oxygen concentration 20 % Jazlyn Liu Frank [facility].; [email or web address]. Comment on above: Room air 09-12-2021 14:33-0400 Inhaled oxygen concentration 21 % Jazlyn Carllabach [facility], [facility].; [email or web address]. Comment on above: Room air 09-12-2021 14:33-0400 SaO2% (BldA) [Mass fraction] 93 % Jazlyn Andersonach [facility].; [email or web address] 09-12-2021 14:33-0400 Systolic blood pressure 150 mm[Hg] Jazlyn Andersonach [facility]real [facility].; [email or web address]. Comment on above: Patient Position: Sitting; Cuff Location : Right Arm; Cuff Size: Standard 08-29-2021 13:07-0400 Body height 165.1 cm Jazlyn [facility]abach [facility].; [place] [facility]. 08-29-2021 13:07-0400 Body mass index (BMI) [Ratio] 74.05 kg/m2 Jazlyn Carllabach [facility], [facility].; [place] [facility] 08-29-2021 13:07-0400 Body surface area Derived from formula 2.78 m2 Jazlyn Liu Frank HU[facility], [facility].; [place] [facility]. 08-29-2021 13:07-0400 Body temperature 98.7 [degF] Jazlyn Carllabach [facility].; [email or web address]. Comment on above: Method: Tympanic 08-29-2021 13:07-0400 Body weight 201.85 kg Jazlyn Carllabach [employer]ERSON[employer]ES INSURANCE AGENT [facility], [facility].; [email or web address]. 08-29-2021 13:07-0400 Diastolic blood pressure 76 mm[Hg] Jazlyn Liu Frank PERSONAL LINES INSURANCE AGENT [facility].; [email or web address]. Comment on above: Patient Position: Sitting; Cuff Location : Left Arm; Cuff Size: Standard 08-29-2021 13:07-0400 Heart rate 75 /min Jazlyn Carllabach PERSONAL LINES INSURANCE AGENT [facility].; [email or web address]. Comment on above: Pattern: Regular 08-29-2021 13:07-0400 Inhaled oxygen concentration 20 % Jazlyn Liu Frank PERSONAL LINES INSURANCE AGENT [facility], [facility].; [email or web address]. Comment on above: Room air 08-29-2021 13:07-0400 Inhaled oxygen concentration 21 % Jazlyn Liu Frank PERSONAL LINES INSURANCE AGENT [facility].; [email or web address]. 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 08-29-2021 13:07-0400 Systolic blood pressure 144 mm[Hg] Jazlyn Liu Frank HUDSON [facility].; [email or web address]. Comment on above: Patient Position: Sitting; Cuff Location : Left Arm; Cuff Size: Standard 08-12-2021 13:54-0400 Body height 165.1 cm Alondra Liz Crews PA-C Work Phone: [employer]; [employer]. 08-12-2021 13:54-0400 Body mass index (BMI) [Ratio] 69.39 kg/m2 Alondra Liz Crews PA-C Work Phone: [email or web address]; [employer]. 08-12-2021 13:54-0400 Body surface area Derived from formula 2.7 m2 Alondra Liz Crews PA-C Work Phone: [employer]; [employer]. 08-12-2021 13:54-0400 Body weight 189.15 kg Alondra Liz Crews PA-C Work Phone: [employer]; [employer] 08-12-2021 13:54-0400 Diastolic blood pressure 74 mm[Hg] Alondra Liz Crews PA-C Work Phone: [employer]; [employer]. Comment on above: Patient Position: Sitting; Cuff Location : Left Arm; Cuff Size: Standard 08-12-2021 13:54-0400 Heart rate 110 /min Alondra Liz Crews PA-C Work Phone: [employer]; [employer]. Comment on above: Pattern: Regular 08-12-2021 13:54-0400 Inhaled oxygen concentration 20 % Alondra Agusto Crews PA-C Work Phone: [employer]; [employer]. Comment on above: Room air 08-12-2021 13:54-0400 Inhaled oxygen concentration 21 % Alondra J Crews PA-C Work Phone: [employer]; [employer] Comment on above: Room air 08-12-2021 13:54-0400 SaO2% (BldA) [Mass fraction] 95 % Alondra Liz Mars ZABALA-Jennifer Work Phone: [facility].; [facility]. 08-12-2021 13:54-0400 Systolic blood pressure 118 mm[Hg] Alondra Crews VJ-Jennifer Work Phone: [facility].; [facility]. Comment on above: Patient Position: Sitting; Cuff Location : Left Arm; Cuff Size: Standard 07-03-2021 17:22-0400 Body temperature 98.8 [degF] Stephen Issa DO Work Phone: [employer] Work Phone: 07-03-2021 17:22-0400 Diastolic blood pressure 75 mm[Hg] Stephen Issa DO Work Phone: [employer] Work Phone: 07-03-2021 17:22-0400 Heart rate 88 /min Stephen Issa DO Work Phone: [facility] Work Phone: 07-03-2021 17:22-0400 Respiratory rate 16 /min Stephen Issa DO Work Phone: [facility] Work Phone: 07-03-2021 17:22-0400 SaO2% (BldA) [Mass fraction] 93 % Stephen Issa DO Work Phone: [facility] Work Phone: 07-03-2021 17:22-0400 Systolic blood pressure 147 mm[Hg] Stephen Issa DO Work Phone: [employer] Work Phone: 07-03-2021 06:52-0400 Body mass index (BMI) [Ratio] 69.56 kg/m2 Stephen Issa DO Work Phone: [employer] Work Phone: 07-03-2021 06:52-0400 Body weight 189.6 kg Stephen Issa DO Work Phone: [facility] Work Phone: 06-25-2021 14:28-0400 Body height 165.1 cm Stephen Parsons DO Work Phone: [facility] Work Phone: 06-03-2021 08:00-0400 Body temperature 97.9 [degF] Nawaf Dalton MD Work Phone: [facility] 06-03-2021 08:00-0400 Diastolic blood pressure 91 mm[Hg] Nawaf Dalton MD Work Phone: [facility] 06-03-2021 08:00-0400 Heart rate 62 /min Nawaf Dalton MD Work Phone: [facility] 06-03-2021 08:00-0400 Respiratory rate 37 /min Nawaf Dalton MD Work Phone: [facility] 06-03-2021 08:00-0400 SaO2% (BldA) [Mass fraction] 93 % Nawaf Dalton MD Work Phone: [facility] 06-03-2021 08:00-0400 Systolic blood pressure 159 mm[Hg] Nawaf Dalton MD Work Phone: [facility] 06-02-2021 15:47-0400 SaO2% (BldA) [Mass fraction] 96.5 % Joe Sommers [facility] 06-02-2021 15:41-0400 Body height 165.1 cm Nawaf Dalton MD Work Phone: [facility] 06-02-2021 15:41-0400 Body mass index (BMI) [Ratio] 73.22 kg/m2 Nawaf Dalton MD Work Phone: [facility] 06-02-2021 15:41-0400 Body weight 199.58 kg Nawaf Dalton MD Work Phone: [facility] 05-17-2021 14:30-0400 Body height 165.1 cm Jazlyn Andersonach [facility], [facility].; [place] Adreal [facility], [facility]. 05-17-2021 14:30-0400 Body mass index (BMI) [Ratio] 78.21 kg/m2 Jazlyn Marie [facility], [facility].; [facility]. 05-17-2021 14:30-0400 Body surface area Derived from formula 2.84 m2 Jazlyn Liu Frank [facility], [facility].; [place] Adreal [facility], [facility]. 05-17-2021 14:30-0400 Body weight 213.19 kg Jazlyn Marie [facility], [facility].; [place] Adreal [facility], [facility]. 05-17-2021 14:30-0400 Diastolic blood pressure 80 mm[Hg] Jazlyn Marie [facility], [facility].; [employer] Adreal [facility], [facility]. Comment on above: Patient Position: Sitting; Cuff Location : Left Arm; Cuff Size: Standard 05-17-2021 14:30-0400 Heart rate 83 /min Jazlyn Marie [facility], [facility].; [place], [facility]. Comment on above: Pattern: Regular 05-17-2021 14:30-0400 Systolic blood pressure 132 mm[Hg] Jazlyn Marie [facility], [facility].; [employer] Adreal [facility], [facility]. Comment on above: Patient Position: Sitting; Cuff Location : Left Arm; Cuff Size: Standard 03-14-2021 [id number] Body height 165.1 cm Alondra Crews PA-C Work Phone: [place] [facility].; [employer] [facility]. 03-14-2021 14:11-0400 Body mass index (BMI) [Ratio] 75.88 kg/m2 Alondra Crews PA-C Work Phone: [facility].; [employer] [facility]. 03-14-2021 14:11-0400 Body surface area Derived from formula 2.81 m2 Alondra Crews PA-C Work Phone: [facility].; [employer] 03-14-2021 14:11-0400 Body weight 206.84 kg Alondra Crews PA-C Work Phone: [employer]; [employer] 03-14-2021 14:11-0400 Diastolic blood pressure 69 mm[Hg] Alondra Crews PA-C Work Phone: [employer]; [employer] Comment on above: Patient Position: Sitting; Cuff Location : Left Arm; Cuff Size: Standard 03-14-2021 14:11-0400 Heart rate 92 /min Alondra Crews PA-C Work Phone: [employer]; [employer] Comment on above: Pattern: Regular 03-14-2021 14:11-0400 Systolic blood pressure 130 mm[Hg] Alondra Crews PA-C Work Phone: [employer]; [employer] Comment on above: Patient Position: Sitting; Cuff Location : Left Arm; Cuff Size: Standard 06-01-2020 03:00-0400 BP Diastolic 81 mm[Hg] [facility] [place]-[facility]-[place] 03:00-0400 BP Systolic 137 mm[Hg] [place], [place] 06-01-2020 03:00-0400 Respiratory Rate 17 /min [facility] 06-01-2020 00:45-0400 BMI (Body Mass Index) 69.56 kg/m2 [place], [place] 06-01-2020 00:45-0400 Body Temperature 98.8 [degF] [facility] [place] 06-01-2020 00:45-0400 Body weight 189.6 kg [place], [place] 06-01-2020 00:45-0400 Height 165.1 cm [place] 06-01-2020 00:45-0400 Pulse (Heart Rate) 71 /min [place], [place] 06-01-2020 00:45-0400 Pulse Oximetry 98 % [place] Encounters Encounter Date Encounter Type Care Provider Facility Start: 06-09-2025 End: 06-09-2025 Office outpatient visit 25 minutes Alondra Crews PA-C Work Phone: [employer]. Start: 06-09-2025 Follow-up encounter Alondra li PA-C Work Phone: [employer]. Start: 12-21-2024 End: 12-21-2024 Medication Alondra Crews PA-C Work Phone: [employer]. Start: 12-21-2024 Review Alondraboston Piedraer PA-C Work Phone: [employer]. Start: 11-18-2024 ambulatory YAMILE PEREZ [facility] Ambulatory Start: 11-11-2024 End: 11-11-2024 ambulatory ALONDRA CREWS [facility] Amb[facility] Start: 11-11-2024 End: 11-11-2024 Office outpatient new 60 minutes Alondra Crews PA-C Work Phone: [facility] Comment on above: Positive LIZ (antinu clear antibody) (Primary Dx); Arthralgia, unspecified joint; CRP elevated; Lymphedema; Recurrent cellulitis Start: 08-05-2024 End: 08-05-2024 Medication Alondra Piedraer PA-C Work Phone: [employer]. Start: 06-24-2024 End: 06-24-2024 Orders Alondra Piedraer PA-C Work Phone: [employer]. Start: 06-15-2024 End: 06-15-2024 Medication Alondraboston Piedraer PA-C Work Phone: [employer]. Start: 06-15-2024 Review Alondraboston Piedraer PA-C Work Phone: [employer]. Start: 06-15-2024 End: 06-15-2024 Orders Alondra Piedraer PA-C Work Phone: [employer]. Start: 06-13-2024 End: 06-13-2024 Patient encounter procedure Alondra Crews PA-C Work Phone: [facility] Start: 05-12-2024 End: 05-12-2024 Office outpatient visit 25 minutes Alondra Crews PA-C Work Phone: [facility] Start: 05-10-2024 End: 05-10-2024 Telephone follow-up Alondra ZABALA-C Work Phone: [facility] Start: 05-04-2024 ambulatory Calderon nunez Sky Facili ty:[facility] Start: 05-04-2024 End: 05-09-2024 Evaluation and management of inpatient Calderon Ojeda Facility:[facility] Start: 04-15-2024 End: 04-15-2024 Office outpatient visit 15 minutes Alondra ZABALA-C Work Phone: [email or web address] Start: 04-11-2024 End: 04-11-2024 Telephone follow-up Alondra ZABALA-C Work Phone: [facility] Start: 04-08-2024 Non-patient / Non-visit PA Alondra Crews PA Work Phone: [facility] Work Phone: Start: 04-07-2024 Non-patient / Non-visit PA Alondra Crews PA Work Phone: [facility] Work Phone: Start: 04-06-2024 Non-patient / Non-visit PA Alondra Crews PA Work Phone: [facility] Work Phone: Start: 04-05-2024 ambulatory Antoni Osman Facility:[facility] Start: 04-05-2024 Non-patient / Non-visit PA Alondra Crews PA Work Phone: [facility] Start: 04-04-2024 ambulatory Calderon enrique Syk Facili ty:[facility] Start: 04-04-2024 End: 04-08-2024 Evaluation and management of inpatient [facility] 3 Work Phone: Start: 04-01-2024 End: 04-01-2024 Office outpatient visit 25 minutes Alondra Crews PA-C Work Phone: [employer] Start: 09-04-2023 End: 09-04-2023 ambulatory HELDER TAVERA [facility] Start: 09-04-2023 End: 09-04-2023 Office outpatient new 45 minutes Helder Tavera MD Work Phone: [facility] Disease Comment on above: Morbid obesity (HCC) (Primary Dx); Recurrent cellulitis of lower extremity; Chronic acquired lymphedema Start: 08-26-2023 End: 08-26-2023 Patient encounter procedure Alondra Crews PA-C Work Phone: [employer] Start: 08-21-2023 Non-patient / Non-visit PA Alondra Crews PA Work Phone: [facility] Work Phone: Start: 08-20-2023 Non-patient / Non-visit PA Alondra Crews PA Work Phone: [facility] Work Phone: Start: 08-19-2023 Non-patient / Non-visit PA Alondra Crews PA Work Phone: [facility] Work Phone: Start: 08-18-2023 ambulatory Arthur Thompson Facility:[facility] Start: 08-18-2023 End: 08-21-2023 Evaluation and management of inpatient PA Alondra Crews PA Work Phone: [facility] Work Phone: Start: 07-31-2023 End: 07-31-2023 Office outpatient visit 15 minutes Alondra Crews PA-C Work Phone: [employer] Start: 07-31-2023 Non-patient / Non-visit PA Alondra Crews PA Work Phone: [facility] Work Phone: Start: 07-30-2023 Non-patient / Non-visit PA Alondra Crews PA Work Phone: [facility] Work Phone: Start: 07-29-2023 [facility] Facility:[facility] Start: 07-29-2023 Non-patient / Non-visit PA Alondra Crews PA Work Phone: [facility] Start: 07-29-2023 Non-patient / Non-visit PA Alond[facility] Crews [facility] Work [facility]: Start: 07-28-2023 Non-patient / Non-visit PA Alondra Crews PA Work Phone: [facility] Work Phone: Start: 07-27-2023 Non-patient / Non-visit PA Alondra Crews PA Work Phone: [facility] Work Phone: Start: 07-26-2023 Non-patient / Non-visit PA Alondra Crews PA Work Phone: [facility] Work Phone: Start: 07-25-2023 Non-patient / Non-visit PA Alondra Crews PA Work Phone: [facility] Work Phone: Start: 07-25-2023 End: 07-31-2023 Evaluation and management of inpatient PA Alondra Crews PA Work Phone: [facility] 3 Work Phone: Start: 07-16-2023 End: 07-16-2023 Office outpatient visit 15 minutes Alondra Crews PA-C Work Phone: [employer] Start: 07-08-2023 Non-patient / Non-visit PA Alondra ZABALA Work Phone: [facility] Start: 07-08-2023 End: 07-08-2023 Emergency department patient visit [facility]Emer[facility] Work Phone: Start: 05-06-2023 End: 05-06-2023 Medication Alondra Crews PA-C Work Phone: [employer] Start: 2023 End: 2023 Patient encounter procedure Alondra Crews PA-C Work Phone: [employer] Start: 02-06-2023 End: 02-06-2023 Patient encounter procedure Alondra Crews PA-C Work Phone: [employer] Start: 02-02-2023 Patient encounter procedure Referring Provider Unknown [facility] DO Work Phone: Start: 02-02-[address] [facility] [id number] Start: 09-10-2022 End: 09-10-2022 Office outpatient visit 25 minutes Alondra Crews PA-C Work Phone: [employer] Start: 04-04-2022 End: 04-04-2022 Patient encounter procedure VJ ZABALA Work Phone: [facility]Cardiovascular Services Start: 02-26-2022 End: 02-26-2022 Subsequent hospital visit by physician Alondra Crews PA-C Work Phone: [facility] Ultrasound Comment on above: Arrived Start: 02-26-2022 End: 02-26-2022 Orders Alondra Crews PA-C Work Phone: [employer] Start: 02-21-2022 End: 02-21-2022 Office outpatient visit 25 minutes Alondra Crews PA-C Work Phone: [employer] Start: 01-27-2022 End: 01-27-2022 Orders Alondra Crews PA-C Work Phone: [employer]. Start: 12-12-2021 End: 12-12-2021 Patient encounter procedure PA Alondra Crews PA [facility] Start: 11-15-2021 End: 11-15-2021 Office outpatient visit 25 minutes Alondra Crews PA-C Work Phone: [employer] Start: 10-11-2021 End: 10-11-2021 Patient encounter procedure Alondra Crews PA-C Work Phone: [employer] Start: 09-12-2021 End: 09-12-2021 Office outpatient visit 25 minutes Alondra Crews PA-C Work Phone: [employer] Start: 08-29-2021 End: 08-29-2021 Office outpatient visit 25 minutes Alondra Crews PA-C Work Phone: [employer] Start: 08-12-2021 End: 08-12-2021 Historical Summary Alondra Crews PA-C Work Phone: [employer] Start: 08-12-2021 End: 08-12-2021 Patient encounter procedure Alondra Crews PA-C Work Phone: [employer] Start: 08-06-2021 End: 08-06-2021 Telephone follow-up Alondra Crews PA-C Work Phone: [employer] Start: 06-03-2021 End: 07-03-2021 Evaluation and management of inpatient Stephen Parsons DO Work Phone: [facility] Start: 06-02-2021 End: 06-03-2021 Evaluation and management of inpatient Nawaf Dalton MD Work Phone: [facility] Comment on above: Pneumonia due to 201 9 novel coronavirus Start: 05-20-2021 End: 05-20-2021 Orders Alondra Crews PA-C Work Phone: [facility] Start: 05-20-2021 End: 05-20-2021 Medication Alondra Crews PA-C Work Phone: [employer] Start: 05-17-[facility] Start: 05-17-2021 End: 05-17-2021 Patient encounter procedure Alondra Crews PA-C Work Phone: [employer] Start: 05-09-2021 End: 05-09-2021 Orders Alondra Crews PA-C Work Phone: [employer] Start: 04-05-2021 End: 04-05-2021 Subsequent hospital visit by physician Alondra Crews PA-C Work Phone: [facility] Echocardiography Comment on above: Arrived Start: 03-14-2021 End: 03-14-2021 Office outpatient new 45 minutes Alondra Crews PA-C Work Phone: [employer] Start: 02-06-2021 End: 02-06-2021 Orders Only Svitlana Ramirez Reagan Work Phone: [facility] Start: 05-31-2020 End: 06-01-2020 Emergency department patient visit [facility] Emergency Dept Comment on above: Flank pain (Primary Dx) Start: 03-01-2018 Ambulatory Fanta Worrell y:[facility] Start: 03-01-2018 End: 03-01-2018 Ambulatory Herminia Jones Work Phone: [facility] Preoperative state Referring Pro vider Unknown [facility] DO Work Phone: Procedures Date Procedure Procedure Detail Performing Clinician Start: 08-17-2023 Plain chest X-ray VJ ZABALA Work Phone: Start: 07-28-2023 Plain chest X-ray PA Me shilo Mars ZABALA Work Phone: Start: 07-26-2023 Ultrasonography of limb PA Alondra Mars ZABALA Work Phone: Start: 07-25-2023 Bacteria identified in Blood by Culture JV FabianAlondra Mars ZABALA Work Phone: Start: 07-08-2023 Bacteria identified in Blood by Culture VJ Alondra Piedrabrenda ZABALA Work Phone: Start: 02-02-2023 Psychiatric diagnost ic evaluation Referring Provider Unknown Start: 02-26-2022 Us abdominal real ti me w/image limited Alondra Liz Crews PA-C Work Phone: Start: 02-21-2022 End: 02-27-2022 Unlisted us procedure Alondra Crews P A-C Work Phone: Comment on above: Pt is very obese but nodule is very easily palpated - along right low back (approx 4cm in diameter and firm; overlying skin is puckered). Start: 07-03-2021 Gluc bld gluc mntr d ev cleared fda spec home use Ruth Soni DO Work Phone: Start: 07-03-2021 Gluc bld gluc mntr d ev cleared fda spec home use Ruth Soni DO Work Phone: Start: 07-03-2021 Gluc bld gluc mntr d ev cleared fda spec home use Ruth Soni DO Work Phone: Start: 07-03-2021 Basic metabolic pane l calcium total Silver Nick MD Work Phone: Start: 07-03-2021 Manual Differential panel - Blood Michelle Petty DO Work Phone: Start: 07-02-2021 Gluc bld gluc mntr d ev cleared fda spec home use Ruth Soni DO Work Phone: Start: 07-02-2021 Gluc bld gluc mntr d ev cleared fda spec home use Ruth Soni DO Work Phone: Start: 07-02-2021 Gluc bld gluc mntr d ev cleared fda spec home use Ruth Soni DO Work Phone: Start: 07-02-2021 Gluc bld gluc mntr d ev cleared fda spec home use Ruth Soni DO Work Phone: Start: 07-02-2021 Basic metabolic pane l calcium total Silver Nick MD Work Phone: Start: 07-02-2021 Hepatic function panel Tello Ali DO Work Phone: Start: 07-02-2021 Manual Differential panel - Blood Michelle Petty DO Work Phone: Start: 07-01-2021 Gluc bld gluc mntr d ev cleared fda spec home use Ruth Soni DO Work Phone: Start: 07-01-2021 Gluc bld gluc mntr d ev cleared fda spec home use Stephen Parsons DO Work Phone: Start: 07-01-2021 Gluc bld gluc mntr d ev cleared fda spec home use Ruth Soni DO Work Phone: Start: 07-01-2021 Basic metabolic pane l calcium total Silver Nick MD Work Phone: Start: 07-01-2021 Manual Differential panel - Blood Michelle Petty DO Work Phone: Start: 06-30-2021 Gluc bld gluc mntr d ev cleared fda spec home use Ruth Soni DO Work Phone: Start: 06-30-2021 Gluc bld gluc mntr d ev cleared fda spec home use Ruth Soni DO Work Phone: Start: 06-30-2021 Gluc bld gluc mntr d ev cleared fda spec home use Ruth Soni DO Work Phone: Start: 06-30-2021 Gluc bld gluc mntr d ev cleared fda spec home use Ruth Soni DO Work Phone: Start: 06-30-2021 Basic metabolic pane l calcium total Silver Nick MD Work Phone: Start: 06-30-2021 Hepatic function panel Tello Sterling DO Work Phone: Start: 06-29-2021 Assay of osmolality urine April Araujo MD Work Phone: Start: 06-29-2021 Gluc bld gluc mntr d ev cleared fda spec home use Ruth Soni DO Work Phone: Start: 06-29-2021 Gluc bld gluc mntr d ev cleared fda spec home use Stephen Ashli Issa DO Work Phone: Start: 06-29-2021 Gluc bld gluc mntr d ev cleared fda spec home use Ruth Soni DO Work Phone: Start: 06-29-2021 Basic metabolic pane l calcium total Silver Nick MD Work Phone: Start: 06-29-2021 Manual Differential panel - Blood Michelle DO Work Phone: Start: 06-28-2021 Gluc bld gluc mntr d ev cleared fda spec home use Ruth Soni DO Work Phone: Start: 06-28-2021 Gluc bld gluc mntr d ev cleared fda spec home use Stephen Ashli Issa DO Work Phone: Start: 06-28-2021 Gluc bld gluc mntr d ev cleared fda spec home use Ruth Soni DO Work Phone: Start: 06-28-2021 Gluc bld gluc mntr d ev cleared fda spec home use Ruth Soni DO Work Phone: Start: 06-28-2021 Basic metabolic pane l calcium total Silver Nick MD Work Phone: Start: 06-28-2021 Hepatic function panel Tello Sterling DO Work Phone: Start: 06-28-2021 Manual Differential panel - Blood Michelle Petty DO Work Phone: Start: 06-27-2021 Gluc bld gluc mntr d ev cleared fda spec home use Ruth Soni DO Work Phone: Start: 06-27-2021 Gluc bld gluc mntr d ev cleared fda spec home use Stephen Parsons DO Work Phone: Start: 06-27-2021 Drug screen quantita tive vancomycin Silver Nick MD Work Phone: Start: 06-27-2021 Basic metabolic pane l calcium total Silver Nick MD Work Phone: Start: 06-27-2021 Radiologic exam ches t single view Venessa Barakat MD Work Phone: Start: 06-27-2021 End: 06-27-2021 ADD ON LAB TEST Tello Sterling DO Work Phone: Start: 06-27-2021 Gluc bld gluc mntr d ev cleared fda spec home use Stephen Parsons DO Work Phone: Start: 06-27-2021 Basic metabolic pane l calcium total Shashank Sellers MD Work Phone: Start: 06-26-2021 Gluc bld gluc mntr d ev cleared fda spec home use Stephen Parsons DO Work Phone: Start: 06-26-2021 Gluc bld gluc mntr d ev cleared fda spec home use Ruth Soni DO Work Phone: Start: 06-26-2021 Creatinine other source Lindsey Joyce MD Work Phone: Start: 06-26-2021 Urnls dip stick/tabl et rgnt auto w/o microscopy Lindsey Joyce MD Work Phone: Start: 06-26-2021 Us retroperitoneal r eal time w/image complete Monae Huang DO Work Phone: Start: 06-26-2021 Gluc bld gluc mntr d ev cleared fda spec home use Ruth Soni DO Work Phone: Start: 06-26-2021 ADD ON LAB TEST Checo K usar DO Work Phone: Start: 06-26-2021 Gluc bld gluc mntr d ev cleared fda spec home use Ruth Soni DO Work Phone: Start: 06-26-2021 Ecg routine ecg w/le ast 12 lds w/i&r Tello Ali DO Work Phone: Start: 06-26-2021 Basic metabolic pane l calcium total Shashank Sellers MD Work Phone: Start: 06-26-2021 Manual Differential panel - Blood Michelel DO Work Phone: Start: 06-26-2021 Drug screen quantita tive vancomycin Willie Andrade MD Work Phone: Start: 06-25-2021 End: 06-25-2021 Basic metabolic panel calcium total Shashank Sellers MD Work Phone: Start: 06-25-2021 Hepatic function panel Tello Ali DO Work Phone: Start: 06-25-2021 Radiologic exam ches t single view Willie Andrade MD Work Phone: Start: 06-25-2021 BLOOD GAS, ARTERIAL Catrachito marie Andrade MD Work Phone: Start: 06-25-2021 Basic metabolic pane l calcium total Checo Gustabosar DO Work Phone: Start: 06-25-2021 Ecg routine ecg w/le ast 12 lds w/i&r Tello Ali DO Work Phone: Start: 06-25-2021 Gluc bld gluc mntr d ev cleared fda spec home use Stephen Parsons DO Work Phone: Start: 06-25-2021 Assay of magnesium Michelle DO Work Phone: Start: 06-25-2021 BASIC METABOLIC PANE L W/ REFLEX TO MG FOR LOW K Michelle DO Work Phone: Start: 06-25-2021 Manual Differential panel - Blood Michelle DO Work Phone: Start: 06-24-2021 Gluc bld gluc mntr d ev cleared fda spec home use Ruth Soni DO Work Phone: Start: 06-24-2021 Gluc bld gluc mntr d ev cleared fda spec home use Ruth Soni DO Work Phone: Start: 06-24-2021 End: 06-24-2021 Gluc bld gluc mntr dev cleared fda spec home use Ruth Soni DO Work Phone: Start: 06-24-2021 Gluc bld gluc mntr d ev cleared fda spec home use Ruth Soni DO Work Phone: Start: 06-24-2021 Gluc bld gluc mntr d ev cleared fda spec home use Ruth Soni DO Work Phone: Start: 06-24-2021 BASIC METABOLIC PANE L W/ REFLEX TO MG FOR LOW K Michelle DO Work Phone: Start: 06-24-2021 Calcium ionized Michelle Nicole mmers DO Work Phone: Start: 06-24-2021 Hepatic function panel Michelle DO Work Phone: Start: 06-23-2021 Assay of [id number] Kyung Wong DO Work Phone: Start: 06-23-2021 ADD ON LAB TEST Jose De Jesusteresa Ashli hammondjarod DO Work Phone: Start: 06-23-2021 Gluc bld gluc mntr d ev cleared fda spec home use Ruth Soni DO Work Phone: Start: 06-23-2021 BASIC METABOLIC PANE L W/ REFLEX TO MG FOR LOW K Michelle DO Work Phone: Start: 06-23-2021 Calcium ionized Michelle Nicole mmers DO Work Phone: Start: 06-23-2021 Hepatic function panel Michelle DO Work Phone: Start: 06-23-2021 RBC morphology findi ng Nom (Bld) Michelle DO Work Phone: Start: 06-22-2021 Gluc bld gluc mntr d ev cleared fda spec home use Ruth Soni DO Work Phone: Start: 06-22-2021 Radiologic exam ches t single view Checo Kusar DO Work Phone: Start: 06-22-2021 Gluc bld gluc mntr d ev cleared fda spec home use Ruth Soni DO Work Phone: Start: 06-22-2021 BASIC METABOLIC PANE L W/ REFLEX TO MG FOR LOW K Michelle DO Work Phone: Start: 06-22-2021 Calcium ionized Michelle Nicole mmers DO Work Phone: Start: 06-22-2021 Hepatic function panel Michelle DO Work Phone: Start: 06-21-2021 Gluc bld gluc mntr d ev cleared fda spec home use Ruth Soni DO Work Phone: Start: 06-21-2021 Gluc bld gluc mntr d ev cleared fda spec home use Ruth Soni DO Work Phone: Start: 06-21-2021 BASIC METABOLIC PANE L W/ REFLEX TO MG FOR LOW K Michelle DO Work Phone: Start: 06-21-2021 Calcium ionized Michelle Nicole mmers DO Work Phone: Start: 06-21-2021 Hepatic function panel Michelle Petty DO Work Phone: Start: 06-20-2021 Gluc bld gluc mntr d ev cleared fda spec home use Ruth Soni DO Work Phone: Start: 06-20-2021 Gluc bld gluc mntr d ev cleared fda spec home use Ruth Soni DO Work Phone: Start: 06-20-2021 Gluc bld gluc mntr d ev cleared fda spec home use Ruth Soni DO Work Phone: Start: 06-20-2021 Gluc bld gluc mntr d ev cleared fda spec home use Ruth Soni DO Work Phone: Start: 06-20-2021 BASIC METABOLIC PANE L W/ REFLEX TO MG FOR LOW K Michelle DO Work Phone: Start: 06-20-2021 End: 06-20-2021 Calcium ionized Michelle DO Work Phone: Start: 06-20-2021 Hepatic function panel Michelle DO Work Phone: Start: 06-19-2021 Gluc bld gluc mntr d ev cleared fda spec home use Ruth Soni DO Work Phone: Start: 06-19-2021 Culture bacterial bl ood aerobic w/id isolates Eladia Scanlon MD Work Phone: Start: 06-19-2021 CULTURE, BLOOD 1 Anthony Scanlon MD Work Phone: Start: 06-19-2021 Procalcitonin (pct) Ambrosio Allred MD Work Phone: Start: 06-19-2021 Echo tthrc r-t 2d w/wom-mode compl spec&colr d Presley Shelton MD Work Phone: Start: 06-19-2021 Gluc bld gluc mntr d ev cleared fda spec home use Ruth Soni DO Work Phone: Start: 06-19-2021 Microscopic examinat ion of blood, culture Comment on above: Performed By: #### C /BLT ####[facility] [place] [id number] [id number] Start: 06-19-2021 Gluc bld gluc mntr d ev cleared fda spec home use Ruth Soni DO Work Phone: Start: 06-19-2021 Radiologic exam ches t single view Elijah Allred MD Work Phone: Start: 06-19-2021 Smr prim src gram/gi emsa stain bct fungi/cell Jethro Hutchison MD Work Phone: Start: 06-19-2021 BASIC METABOLIC PANE L W/ REFLEX TO MG FOR LOW K Michlele Petty DO Work Phone: Start: 06-19-2021 End: 06-19-2021 Calcium ionized Michelle Petty DO Work Phone: Start: 06-19-2021 Hepatic function panel Michelle DO Work Phone: Start: 06-19-2021 BLOOD GAS, ARTERIAL Ambrosio Allred MD Work Phone: Start: 06-19-2021 ATTENDANT [employer] CLINICAL BEDSIDE SWALLOW EVALUATION & TREATMENT Anastacia Patterson DO Work Phone: Start: 06-18-2021 Speech and language therapy regime Jeffrey Boyle MD Work Phone: Start: 06-18-2021 Gluc bld gluc mntr d ev cleared fda spec home use Ruth Soni DO Work Phone: Start: 06-18-2021 Gluc bld gluc mntr d ev cleared fda spec home use Ruth Soni DO Work Phone: Start: 06-18-2021 EXTUBATION Jeffrey thomason MD Work Phone: Start: 06-18-2021 Radiologic exam abdo men 1 view Jeffrey Boyle MD Work Phone: Start: 06-18-2021 Gluc bld gluc mntr d ev cleared fda spec home use Ruth Soni DO Work Phone: Start: 06-18-2021 BLOOD GAS, ARTERIAL Ambrosio Allred MD Work Phone: Start: 06-18-2021 Gluc bld gluc mntr d ev cleared fda spec home use Stephen Parsons DO Work Phone: Start: 06-18-2021 Radiologic exam ches t single view Presley Shelton MD Work Phone: Start: 06-18-2021 BASIC METABOLIC PANE L W/ REFLEX TO MG FOR LOW K Michelle DO Work Phone: Start: 06-18-2021 End: 06-18-2021 Calcium ionized Michelle DO Work Phone: Start: 06-18-2021 Hepatic function panel Michelle DO Work Phone: Start: 06-17-2021 Gluc bld gluc mntr d ev cleared fda spec home use Stephen Parsons DO Work Phone: Start: 06-17-2021 Gluc bld gluc mntr d ev cleared fda spec home use Ruth Soni DO Work Phone: Start: 06-17-2021 Gluc bld gluc mntr d ev cleared fda spec home use Ruth Soni DO Work Phone: Start: 06-17-2021 Radiologic exam ches t single view Presley Shelton MD Work Phone: Start: 06-17-2021 Gluc bld gluc mntr d ev cleared fda spec home use Ruth Soni DO Work Phone: Start: 06-17-2021 BASIC METABOLIC PANE L W/ REFLEX TO MG FOR LOW K Michelle DO Work Phone: Start: 06-17-2021 End: 06-17-2021 Calcium ionized Michelle DO Work Phone: Start: 06-17-2021 Hepatic function panel Michelle DO Work Phone: Start: 06-16-2021 Gluc bld gluc mntr d ev cleared fda spec home use Stephen Parsons DO Work Phone: Start: 06-16-2021 Sodium serum plasma or whole blood Michelle DO Work Phone: Start: 06-16-2021 Gluc bld gluc mntr d ev cleared fda spec home use Stephen Parsons DO Work Phone: Start: 06-16-2021 MRSA BY PCR Gino john MD Work Phone: Start: 06-16-2021 Urnls dip stick/tabl et rgnt auto w/o microscopy Elijah Allred MD Work Phone: Start: 06-16-2021 Procalcitonin (pct) Lamonte Yun MD Work Phone: Start: 06-16-2021 Gluc bld gluc mntr d ev cleared fda spec home use Stephen Parsons DO Work Phone: Start: 06-16-2021 Radiologic exam ches t single view Presley Shelton MD Work Phone: Start: 06-15-2021 End: 06-16-2021 Culture bacterial quanttative colony count urine Jethro Hutchison MD Work Phone: Start: 06-15-2021 BLOOD GAS, ARTERIAL Tar a K Parth LAL Work Phone: Start: 06-15-2021 CULTURE, BLOOD 1 Nancie Freire MD Work Phone: Start: 06-15-2021 BASIC METABOLIC PANE L W/ REFLEX TO MG FOR LOW K Michelle Petty DO Work Phone: Start: 06-15-2021 End: 06-16-2021 Calcium ionized Michelle Petty DO Work Phone: Start: 06-15-2021 Hepatic function panel Michelle Petty DO Work Phone: Start: 06-15-2021 Radiologic exam ches t single view Jethro Hutchison MD Work Phone: Start: 06-15-2021 Gluc bld gluc mntr d ev cleared fda spec home use Stephen Parsons DO Work Phone: Start: 06-15-2021 Gluc bld gluc mntr d ev cleared fda spec home use Ruth Soni DO Work Phone: Start: 06-15-2021 Dup-scan xtr veins c omplete bilateral study Michelle Murphys DO Work Phone: Start: 06-15-2021 Smr prim src gram/gi emsa stain bct fungi/cell Elijah Walker MD Work Phone: Start: 06-15-2021 Gluc bld gluc mntr d ev cleared fda spec home use Ruth Soni DO Work Phone: Start: 06-15-2021 Radiologic exam ches t single view Presley Shelton MD Work Phone: Start: 06-15-2021 BASIC METABOLIC PANE L W/ REFLEX TO MG FOR LOW K Michelle DO Work Phone: Start: 06-15-2021 BLOOD GAS, ARTERIAL Rhea Soni DO Work Phone: Start: 06-14-2021 End: 06-15-2021 Calcium ionized Michelle Petty DO Work Phone: Start: 06-15-2021 Hepatic function panel Michelle DO Work Phone: Start: 06-14-2021 Gluc bld gluc mntr d ev cleared fda spec home use Ruth Soni DO Work Phone: Start: 06-14-2021 Gluc bld gluc mntr d ev cleared fda spec home use Stephen M Issa DO Work Phone: Start: 06-14-2021 Gluc bld gluc mntr d ev cleared fda spec home use Stephen M Issa DO Work Phone: Start: 06-14-2021 Gluc bld gluc mntr d ev cleared fda spec home use Stephen M Issa DO Work Phone: Start: 06-14-2021 Radiologic exam ches t single view Presley Shelton MD Work Phone: Start: 06-14-2021 BASIC METABOLIC PANE L W/ REFLEX TO MG FOR LOW K Michelle Petty DO Work Phone: Start: 06-14-2021 BLOOD GAS, ARTERIAL Rhea Soni DO Work Phone: Start: 06-14-2021 End: 06-14-2021 Calcium ionized Michelle DO Work Phone: Start: 06-14-2021 Hepatic function panel Michelle DO Work Phone: Start: 06-13-2021 End: 06-13-2021 Sodium serum plasma or whole blood Presley Shelton MD Work Phone: Start: 06-13-2021 BLOOD GAS, ARTERIAL Rhea Soni DO Work Phone: Start: 06-13-2021 Sodium serum plasma or whole blood Presley Shelton MD Work Phone: Start: 06-13-2021 Gluc bld gluc mntr d ev cleared fda spec home use Stephen Parsons DO Work Phone: Start: 06-13-2021 Sodium serum plasma or whole blood Presley Shelton MD Work Phone: Start: 06-13-2021 Radiologic exam ches t single view Presley Shelton MD Work Phone: Start: 06-13-2021 BASIC METABOLIC PANE L W/ REFLEX TO MG FOR LOW K Michelle DO Work Phone: Start: 06-13-2021 BLOOD GAS, ARTERIAL Rhea Soni DO Work Phone: Start: 06-13-2021 End: 06-13-2021 Calcium ionized Michelle DO Work Phone: Start: 06-13-2021 Hepatic function panel Michelle DO Work Phone: Start: 06-12-2021 Gluc bld gluc mntr d ev cleared fda spec home use Stephen Parsons DO Work Phone: Start: 06-12-2021 End: 06-12-2021 Sodium serum plasma or whole blood Presley Shelton MD Work Phone: Start: 06-12-2021 End: 06-12-2021 Smr prim src gram/giemsa stain bct fungi/cell Fina Desir MD Work Phone: Start: 06-12-2021 PNEUMONIA PANEL, MOLECULAR Fina Desir MD Work Phone: Start: 06-12-2021 BLOOD GAS, ARTERIAL Tif justino Soni DO Work Phone: Start: 06-12-2021 CULTURE, BLOOD 1 Fina Desir MD Work Phone: Start: 06-12-2021 End: 06-12-2021 Sodium serum plasma or whole blood Presley Shelton MD Work Phone: Start: 06-12-2021 Sodium serum plasma or whole blood Presley Shelton MD Work Phone: Start: 06-12-2021 Radiologic exam ches t single view Presley Shelton MD Work Phone: Start: 06-12-2021 Gluc bld gluc mntr d ev cleared fda spec home use Stephen Parsons DO Work Phone: Start: 06-12-2021 BASIC METABOLIC PANE L W/ REFLEX TO MG FOR LOW K Michelle DO Work Phone: Start: 06-12-2021 BLOOD GAS, ARTERIAL Tif justino Soni DO Work Phone: Start: 06-12-2021 End: 06-12-2021 Calcium ionized Michelle DO Work Phone: Start: 06-12-2021 Hepatic function panel Michelle DO Work Phone: Start: 06-12-2021 Manual Differential panel - Blood Presley Shelton MD Work Phone: Start: 06-11-2021 Gluc bld gluc mntr d ev cleared fda spec home use Stephen Ashli Issa DO Work Phone: Start: 06-11-2021 BLOOD GAS, ARTERIAL Liborio id Szilagy DO Work Phone: Start: 06-11-2021 BLOOD GAS, ARTERIAL Tif justino Soni DO Work Phone: Start: 06-11-2021 Gluc bld gluc mntr d ev cleared fda spec home use Ruth Soni DO Work Phone: Start: 06-11-2021 Radiologic exam ches t single view Presley Shelton MD Work Phone: Start: 06-11-2021 Gluc bld gluc mntr d ev cleared fda spec home use Stephen Parsons DO Work Phone: Start: 06-11-2021 BASIC METABOLIC PANE L W/ REFLEX TO MG FOR LOW K Michelle Petty DO Work Phone: Start: 06-11-2021 BLOOD GAS, ARTERIAL Tif justino Soni DO Work Phone: Start: 06-11-2021 End: 06-11-2021 Calcium ionized Michelle Petty DO Work Phone: Start: 06-11-2021 Hepatic function panel Michelle Petty DO Work Phone: Start: 06-10-2021 Gluc bld gluc mntr d ev cleared fda spec home use Stephen Parsons DO Work Phone: Start: 06-10-2021 BLOOD GAS, ARTERIAL Rhea Soni DO Work Phone: Start: 06-10-2021 Dup-scan xtr veins c omplete bilateral study Presley Shelton MD Work Phone: Start: 06-10-2021 Gluc bld gluc mntr d ev cleared fda spec home use Ruth Soni DO Work Phone: Start: 06-10-2021 Gluc bld gluc mntr d ev cleared fda spec home use Stephen Parsons DO Work Phone: Start: 06-10-2021 Radiologic exam ches t single view Presley Shelton MD Work Phone: Start: 06-10-2021 BASIC METABOLIC PANE L W/ REFLEX TO MG FOR LOW K Michelle Petty DO Work Phone: Start: 06-10-2021 BLOOD GAS, ARTERIAL Rhea Soni DO Work Phone: Start: 06-10-2021 Calcium ionized Michelle Nicole mmers DO Work Phone: Start: 06-10-2021 Hepatic function panel Michelle DO Work Phone: Start: 06-09-2021 Gluc bld gluc mntr d ev cleared fda spec home use Ruth Soni DO Work Phone: Start: 06-09-2021 BLOOD GAS, ARTERIAL Tif justino Soni DO Work Phone: Start: 06-09-2021 Gluc bld gluc mntr d ev cleared fda spec home use Stephen Parsons DO Work Phone: Start: 06-09-2021 Gluc bld gluc mntr d ev cleared fda spec home use Ruth Soni DO Work Phone: Start: 06-09-2021 BASIC METABOLIC PANE L W/ REFLEX TO MG FOR LOW K Michelle DO Work Phone: Start: 06-09-2021 BLOOD GAS, ARTERIAL Rhea Soni DO Work Phone: Start: 06-09-2021 End: 06-09-2021 Calcium ionized Michelle DO Work Phone: Start: 06-09-2021 Hepatic function panel Michelle DO Work Phone: Start: 06-09-2021 Radiologic exam ches t single view Presley Shelton MD Work Phone: Start: 06-08-2021 Gluc bld gluc mntr d ev cleared fda spec home use Stephen Parsons DO Work Phone: Start: 06-08-2021 BLOOD GAS, ARTERIAL Tif justino Soni DO Work Phone: Start: 06-08-2021 Procalcitonin (pct) Nani Hector MD Work Phone: Start: 06-08-2021 Dup-scan xtr veins c omplete bilateral study Fina Desir MD Work Phone: Start: 06-08-2021 Smr prim src gram/gi emsa stain bct fungi/cell Mandy Hector MD Work Phone: Start: 06-08-2021 BLOOD GAS, ARTERIAL Mat alvina Boyle MD Work Phone: Start: 06-08-2021 Gluc bld gluc mntr d ev cleared fda spec home use Stephen Parsons DO Work Phone: Start: 06-08-2021 ADD ON LAB TEST Vipul Shelton MD Work Phone: Start: 06-08-2021 BLOOD GAS, ARTERIAL Mat alvina Boyle MD Work Phone: Start: 06-08-2021 Gluc bld gluc mntr d ev cleared fda spec home use Stephen Parsons DO Work Phone: Start: 06-08-2021 Radiologic exam ches t single view Presley Shelton MD Work Phone: Start: 06-08-2021 BASIC METABOLIC PANE L W/ REFLEX TO MG FOR LOW K Michelle Petty DO Work Phone: Start: 06-08-2021 BLOOD GAS, ARTERIAL Mat alvina Boyle MD Work Phone: Start: 06-08-2021 End: 06-08-2021 Calcium ionized Michelle Petty DO Work Phone: Start: 06-08-2021 Hepatic function panel Michelle Petty DO Work Phone: Start: 06-07-2021 BLOOD GAS, ARTERIAL Mat alvina Boyle MD Work Phone: Start: 06-07-2021 Gluc bld gluc mntr d ev cleared fda spec home use Stephen Parsons DO Work Phone: Start: 06-07-2021 BLOOD GAS, ARTERIAL Mat alvina Boyle MD Work Phone: Start: 06-07-2021 Gluc bld gluc mntr d ev cleared fda spec home use Stephen Parsons DO Work Phone: Start: 06-07-2021 Gluc bld gluc mntr d ev cleared fda spec home use Ruth Soni DO Work Phone: Start: 06-07-2021 Radiologic exam ches t single view Presley Shelton MD Work Phone: Start: 06-07-2021 BASIC METABOLIC PANE L W/ REFLEX TO MG FOR LOW K Michelle Murphys DO Work Phone: Start: 06-07-2021 BLOOD GAS, ARTERIAL Mat alvina Boyle MD Work Phone: Start: 06-07-2021 Calcium ionized Michelle Nicole mmers DO Work Phone: Start: 06-07-2021 Hepatic function panel Michelle Petty DO Work Phone: Start: 06-06-2021 Gluc bld gluc mntr d ev cleared fda spec home use Ruth Soni DO Work Phone: Start: 06-06-2021 Assay of troponin quantitative Presley Shelton MD Work Phone: Start: 06-06-2021 BLOOD GAS, ARTERIAL Mat alvina Boyle MD Work Phone: Start: 06-06-2021 Gluc bld gluc mntr d ev cleared fda spec home use Stephen Parsons DO Work Phone: Start: 06-06-2021 BLOOD GAS, ARTERIAL Mat alvina Boyle MD Work Phone: Start: 06-06-2021 Gluc bld gluc mntr d ev cleared fda spec home use Stephen Parsons DO Work Phone: Start: 06-06-2021 Gluc bld gluc mntr d ev cleared fda spec home use Stephen Parsons DO Work Phone: Start: 06-06-2021 Radiologic exam ches t single view Presley Shelton MD Work Phone: Start: 06-06-2021 BASIC METABOLIC PANE L W/ REFLEX TO MG FOR LOW K Michelle DO Work Phone: Start: 06-06-2021 End: 06-06-2021 BLOOD GAS, ARTERIAL Jeffrey Boyle MD Work Phone: Start: 06-06-2021 Calcium ionized Michelle Nicole mmers DO Work Phone: Start: 06-06-2021 Hepatic function panel Michelle DO Work Phone: Start: 06-06-2021 Gluc bld gluc mntr d ev cleared fda spec home use Ruth Soni DO Work Phone: Start: 06-05-2021 Gluc bld gluc mntr d ev cleared fda spec home use Stephen Parsons DO Work Phone: Start: 06-05-2021 Gluc bld gluc mntr d ev cleared fda spec home use Stephen Parsons DO Work Phone: Start: 06-05-2021 BLOOD GAS, ARTERIAL Mat alvina Boyle MD Work Phone: Start: 06-05-2021 Gluc bld gluc mntr d ev cleared fda spec home use Ruthjustino Valladaresann DO Work Phone: Start: 06-05-2021 BLOOD GAS, ARTERIAL Mat alvina Boyle MD Work Phone: Start: 06-05-2021 Procalcitonin (pct) David Shelton MD Work Phone: Start: 06-05-2021 Gluc bld gluc mntr d ev cleared fda spec home use Ruthjustino Valladaresann DO Work Phone: Start: 06-05-2021 Radiologic exam ches t single view Presley Shelton MD Work Phone: Start: 06-05-2021 BASIC METABOLIC PANE L W/ REFLEX TO MG FOR LOW K Michelle DO Work Phone: Start: 06-05-2021 End: 06-05-2021 BLOOD GAS, ARTERIAL Jeffrey Boyle MD Work Phone: Start: 06-05-2021 Calcium ionized Michelle lauren DO Work Phone: Start: 06-05-2021 Hepatic function panel Michelle Petty DO Work Phone: Start: 06-05-2021 Iaad ia hepatitis b surface antigen Fina Desir MD Work Phone: Start: 06-05-2021 Ecg routine ecg w/le ast 12 lds w/i&r Jeffrey Boyle MD Work Phone: Start: 06-04-2021 Gluc bld gluc mntr d ev cleared fda spec home use Ruth Soni DO Work Phone: Start: 06-04-2021 BLOOD GAS, ARTERIAL Mat alvina Boyle MD Work Phone: Start: 06-04-2021 Gluc bld gluc mntr d ev cleared fda spec home use Stephen Liu Issa DO Work Phone: Start: 06-04-2021 BLOOD GAS, ARTERIAL Mat alvina Boyle MD Work Phone: Start: 06-04-2021 Gluc bld gluc mntr d ev cleared fda spec home use Ruth Soni DO Work Phone: Start: 06-04-2021 Dup-scan xtr veins c omplete bilateral study Presley Shelton MD Work Phone: Start: 06-04-2021 PNEUMONIA PANEL, MOLECULAR Fina Desir MD Work Phone: Start: 06-04-2021 End: 06-04-2021 Smr prim src gram/giemsa stain bct fungi/cell Presley Shelton MD Work Phone: Start: 06-04-2021 Creatinine other source Presley Shelton MD Work Phone: Start: 06-04-2021 STREP PNEUMONIAE ANTIGEN Presley Shelton MD Work Phone: Start: 06-04-2021 Urnls dip stick/tabl et rgnt auto w/o microscopy Presley Shelton MD Work Phone: Start: 06-04-2021 BLOOD GAS, ARTERIAL Mat alvina Boyle MD Work Phone: Start: 06-04-2021 Radiologic exam ches t single view Presley Shelton MD Work Phone: Start: 06-04-2021 BASIC METABOLIC PANE L W/ REFLEX TO MG FOR LOW K Michelle DO Work Phone: Start: 06-04-2021 BLOOD GAS, ARTERIAL Mat alvina Boyle MD Work Phone: Start: 06-04-2021 Calcium ionized Michelle Nicole mmers DO Work Phone: Start: 06-04-2021 Hepatic function panel Presley Shelton MD Work Phone: Start: 06-03-2021 Assay of troponin quantitative Presley Shelton MD Work Phone: Start: 06-03-2021 Tb cell mediated ant ign respnse gamma interferon Presley Shelton MD Work Phone: Start: 06-03-2021 MRSA BY PCR Presley merrill MD Work Phone: Start: 06-03-2021 CULTURE, BLOOD 1 Owen Shelton MD Work Phone: Start: 06-03-2021 BASIC METABOLIC PANE L W/ REFLEX TO MG FOR LOW K Michelle Petty DO Work Phone: Start: 06-03-2021 Calcium ionized Michelle Nicole mmers DO Work Phone: Start: 06-03-2021 Culture bacterial bl ood aerobic w/id isolates Presley Shelton MD Work Phone: Start: 06-03-2021 Lipid panel Presley merrill MD Work Phone: Start: 06-03-2021 BLOOD GAS, ARTERIAL Bra katelynn Shelton MD Work Phone: Start: 06-03-2021 Radiologic exam ches t single view Presley Shelton MD Work Phone: Start: 06-03-2021 Ecg routine ecg w/le ast 12 lds w/i&r Presley Shelton MD Work Phone: Start: 06-03-2021 RESPIRATORY CARE WENDY LUATION ONLY Presley Shelton MD Work Phone: Start: 06-03-2021 C-reactive protein Jb ZABALA-C Work Phone: Start: 06-03-2021 Comprehensive metabo lic panel Flash ZABALA-C Work Phone: Start: 06-03-2021 Lipid 1996 panel - S poppy or Plasma Helder Tavera MD Work Phone: Start: 06-03-2021 Blood count hematocrit Flash De La Rosa PA-C Work Phone: Start: 06-02-2021 Blood count hematocrit Flash De La Rosa PA-C Work Phone: Start: 06-02-2021 End: 06-02-2021 Iaad ia mult step method nos each organism Flash ZABALA-C Work Phone: Start: 06-02-2021 End: 06-02-2021 Assay of ferritin Flash ZABALA-C Work Phone: Start: 06-02-2021 PROCEDURE - CENTRAL LINE WITH OR WITHOUT PAC Al Stack [employer] 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 Work Phone: Start: 06-02-2021 Radiologic exam ches t single view Flash De La Rosa PA-C Work Phone: Start: 06-02-2021 Blood gases any comb ination ph pco2 po2 co2 hco3 Flash De La Rosa PA-C Work Phone: Start: 06-02-2021 Ct angiography chest w/contrast/noncontrast Nawaf Dalton MD Work Phone: Start: 06-02-2021 End: 06-02-2021 Urinalysis microscopic only Nawaf jackson MD Work Phone: Start: 06-02-2021 Urinalysis, reagent strip without microscopy Nawaf Dalton MD Work Phone: Start: 06-02-2021 Comprehensive metabo lic panel Nawaf Dalton MD Work Phone: Start: 06-02-2021 Hepatic function panel Guilherme Naranjo DO Work Phone: Start: 06-02-2021 Sars-cov-2 detection by dna/rna Nawaf Dalton MD Work Phone: Start: 05-17-2021 End: 05-20-2021 Radex foot complete minimum 3 views Alondra ZABALA-C Work Phone: Start: 05-17-2021 End: 05-20-2021 Radiologic exam chest 2 views Alondra Crews PA-C Work Phone: Start: 04-05-2021 Echo tthrc r-t 2d w/wom-mode compl spec&colr d Alondra Crews PA-C Work Phone: Start: 03-22-2021 Lipid 1996 panel - S poppy or Plasma Alondar ZABALA-C Work Phone: Start: 03-21-2021 End: 03-21-2021 Lab findings surveillance Nora parikh [employer] Comment on above: 91 Start: 03-21-2021 End: 03-21-2021 Lipid panel Nora Palma L PN Comment on above: TC 148, HDL 46, LDL 90 Start: 03-14-2021 End: 05-09-2021 TTE w or wo fol wcon,Doppler Alondra Crews PA-C Work Phone: Start: 03-14-2021 End: 03-14-2021 Thyrotropin [Units/volume] in Serum or Plasma Nora Pateler [employer] Comment on above: 2.90 Start: 06-01-2020 Ct abdomen & pelvis w/o contrast material Peter Savage Work Phone: Start: 06-01-2020 Basic metabolic pane l calcium total Peter Savage Work Phone: Start: 06-01-2020 Blood count complete automated Peter Savage Work Phone: Start: 06-01-2020 Urine test visual color cmprsn meths Peter Savage Work Phone: Start: 06-01-2020 Urnls dip stick/tabl et rgnt auto w/o microscopy Peter Savage Work Phone: Start: 11-30-2005 End: 11-30-2005 Laparoscopic cholecystectomy Jazlyn Marie LPN H/O slipped capital femoral epiphysis (SCFE) Jazlyn Marie LPN Comment on above: pins placed in [employer] Laparoscopic cholecystectomy Referring Provider Unknown Operative procedure on foot Referring Provider Unknown Operative procedure on hip R eferring Provider Unknown Plan of Treatment Date Care Activity Detail Author Start: 06-03-2026 Lipid panel Lipid Panel [facility] Start: 03-22-2026 Fasting lipid profile LIPID SCREENIN [facility] Start: 06-09-2025 Hemoglobin glycosyla alek a1c HEMOGLOBIN A1C* (14946) Start: 09-Jun-2025 14:09-04:00 Request Yedda, [employer]lect[employer].; Yedda, [employer]. Start: 06-09-2025 Assay of thyroid stimulating hormone tsh TSH W/ REFL FREE T4 (88413,30599) (25924) Start: 09-Jun-2025 14:09-04:00 Request [employer].; [employer] Start: 06-09-2025 Lipid panel LIPID PANEL (8 0061) Start: 09-Jun-2025 14:09-04:00 Request Yedda, [employer]lect[employer].; Yedda, [employer]. Start: 06-09-2025 Comprehensive metabo lic panel CMP w/ GFR* (60044) Start: 09-Jun-2025 14:08-04:00 Request Yedda, [employer].; [employer] Start: 06-09-2025 Blood count complete auto&auto difrntl wbc CBC, PLATELETS & AUT DIFF (F) (65614) Start: 09-Jun-2025 14:08-04:00 Request [employer].; [employer]. Start: 06-09-2025 Patient encounter procedure Medical; EXTENDED RTN - htn/other issues [employer]. Start: 09-Jun-2025 13:10-04:00 RAYNE Crews Appointment Request [employer]. Start: 02-09-2025 End: 02-09-2025 Patient encounter procedure 02/09/2025 9:30 AM EDT Office Visit [facility] [address] [facility] [place] [address] Selin Yamile Perez, [address] [address] [facility] Orthopedic [facility] Sports Medicine Start: 07-31-2024 COVID-19 Vaccine ( season) COVID-19 Vaccine ( season) [facility] Start: 07-31-2024 Influenza vaccination Influenza Vacc ine (#1) [facility] Start: 06-24-2024 Lipid panel LIPID PANEL (8 0061) Start: 24-Jun-2024 Request [employer].; [employer]. Start: 06-24-2024 Comprehensive metabo lic panel [employer].; [employer]. Start: 06-24-2024 Nursing evaluation o f patient and report Medical; Nurse visit - CMP mjp [employer]. Start: 24-Jun-2024 10:30-04:00 NURSE, FLOAT Appointment Request [employer]. Start: 06-14-2024 Lipid panel LIPID PANEL (8 0061) Start: 14-Jun-2024 Request [employer].; [employer]. Start: 06-13-2024 Cyanocobalamin vitam in b-12 VITAMIN B-12 SERUM (31981) Start: 13-Jun-2024 15:49-04:00 Request ONE Change; [employer]. Start: 06-13-2024 Hemoglobin glycosyla alek a1c HEMOGLOBIN A1C* (05956) Start: 13-Jun-2024 15:48-04:00 Request ONE Change; [employer]. Start: 06-13-2024 Assay of blood/uric acid URIC ACID BLOOD (51930) Start: 13-Jun-2024 15:48-04:00 Request ONE Change; [employer]. Start: 06-13-2024 Assay of thyroid stimulating hormone tsh TSH W/ REFL FREE T4 (21704,86040) (02569) Start: 13-Jun-2024 15:48-04:00 Request ONE Change; ONE Change Start: 06-13-2024 Comprehensive metabo lic panel CMP w/ GFR* (04220) Start: 13-Jun-2024 15:48-04:00 Request ONE Change; [employer]. Start: 06-13-2024 Blood count complete auto&auto difrntl wbc CBC, PLATELETS & AUT DIFF (F) (12594) Start: 13-Jun-2024 15:48-04:00 Request ONE Change; [employer]. Start: 06-13-2024 Sedimentation rate r bc automated ESR (SED RATE) (49798) Start: 13-Jun-2024 15:47-04:00 Request ONE Change; [employer]. Start: 06-13-2024 C-reactive protein C-REACTIVE PROTEIN (78350) Start: 13-Jun-2024 15:47-04:00 Request ONE Change; [employer]. Start: 06-13-2024 Antinuclear antibodies liz LIZ TITER AND PATTERN (68249) Start: 13-Jun-2024 15:47-04:00 Request ONE Change; [employer]. Start: 06-03-2024 Diabetes mellitus screening Diabetes Screening [facility] Start: 05-12-2024 Patient encounter procedure Medical; Hospital F/U - [facility] Cellulitis IPFU 05/09 [facility] [employer]. Start: 12-May-2024 10:00-04:00 RAYNE Crews Appointment Request [employer]. Start: 04-15-2024 Patient encounter procedure Medical; [facility] 04/08, bilat cellulitis, [facility] [employer]. Start: 15-Apr-2024 10:30-04:00 RAYNE Crews Appointment Request [employer]. Start: 04-08-2024 Patient discharge [facility] Start: 04-06-2024 Consultation [facility] Start: 04-05-2024 [facility] Start: 04-04-2024 Following clinical p athway protocol [facility] Start: 04-04-2024 Admission procedure [facility] Start: 04-04-2024 Hospital admission, emergency, from emergency room, medical nature [facility] Start: 04-04-2024 Blood culture [facility] Start: 04-04-2024 Bacteria identified in Blood by Culture Blood Culture [facility] Start: 04-01-2024 Cyanocobalamin vitam in b-12 VITAMIN B-12 SERUM (56573) Start: 01-Apr-2024 11:48-04:00 Request [employer].; [employer]. Start: 04-01-2024 Assay of thyroid stimulating hormone tsh TSH W/ REFL FREE T4 (14036,83467) (81310) Start: 01-Apr-2024 11:48-04:00 Request [employer].; [employer]. Start: 04-01-2024 Hemoglobin glycosyla alek a1c HEMOGLOBIN A1C* (44171) Start: 01-Apr-2024 11:48-04:00 Request [employer].; [employer] Start: 04-01-2024 Lipid panel LIPID PANEL (8 0061) Start: 01-Apr-2024 11:48-04:00 Request [employer].; Yedda, [employer]. Start: 04-01-2024 Comprehensive metabo lic panel CMP w/ GFR* (66529) Start: 01-Apr-2024 11:48-04:00 [facility] [place] [facility] Start: 04-01-2024 Blood count complete auto&auto difrntl wbc CBC, PLATELETS & AUT DIFF (F) (98017) Start: 01-Apr-2024 11:48-04:00 [facility]; Jha Adreal [facility] Start: 04-01-2024 Patient encounter procedure Medical; EXTENDED [facility] Start: 01-Apr-2024 10:50-04:00 RAYNE Crews [facility]ment [facility] Start: 08-21-2023 Patient discharge [facility] Start: 08-18-2023 Consultation [facility] Start: 08-18-2023 Blood chemistry [facility] Start: 08-18-2023 Following clinical p athway protocol [facility] Start: 08-18-2023 [facility] Start: 08-18-2023 Assessment of risk o f venous thromboembolism [facility] Start: 08-18-2023 Insertion of cathete r into peripheral vein [facility] Start: 08-18-2023 Providing care accor ding to standard [facility] Start: 08-18-2023 Provision of activit y privileges [facility] Start: 08-18-2023 [facility] Start: 08-18-2023 Verification routine [facility] Start: 08-18-2023 Admission procedure [facility] Start: 08-18-2023 Patient referral to dietitian [facility] Start: 08-17-2023 Blood culture [facility] Start: 08-17-2023 [facility] Start: 08-17-2023 Bacteria identified in Blood by Culture Blood Culture [facility] Start: 07-31-2023 Influenza vaccination Influenza Vacc ine (#1) [facility] Start: 07-31-2023 Patient discharge [facility] Start: 07-30-2023 Dual pressure sponta neous ventilation support [facility] Start: 07-30-2023 [facility] Start: 07-29-2023 Dual pressure sponta neous ventilation support [facility] Start: 07-28-2023 Dual pressure sponta neous ventilation support [facility] Start: 07-27-2023 Dual pressure sponta neous ventilation support [facility] Start: 07-27-2023 Consultation [facility] Start: 07-26-2023 Dual pressure sponta neous ventilation support [facility] Start: 07-25-2023 End: 07-26-2023 Dual pressure spontaneous ventilation support [facility] Start: 07-25-2023 [facility] Start: 07-25-2023 [facility] Start: 07-25-2023 Thyroid stimulating hormone measurement [facility] Start: 07-25-2023 [facility] Start: 07-25-2023 Following clinical p athway protocol [facility] Start: 07-25-2023 Assessment of risk o f venous thromboembolism [facility] Start: 07-25-2023 Catheterization of vein [facility] Start: 07-25-2023 Consultation for treatment [facility] Start: 07-25-2023 Continuous pulse oximetry [facility] Start: 07-25-2023 Elevation of affecte d extremity [facility] Start: 07-25-2023 Fluid intake encouragement [facility] Start: 07-25-2023 Incentive spirometry [facility] Start: 07-25-2023 Insertion of cathete r into peripheral vein [facility] Start: 07-25-2023 Oxygen therapy [facility] Start: 07-25-2023 Providing care accor ding to standard [facility] Start: 07-25-2023 Provision of activit y privileges [facility] Start: 07-25-2023 Referral to service [facility] Start: 07-25-2023 [facility] Start: 07-25-2023 Bacterial nucleic ac id assay [facility] Start: 07-25-2023 [facility] Start: 07-25-2023 Verification routine [facility] Start: 07-25-2023 Admission procedure [facility] Start: 07-25-2023 Patient referral to dietitian [facility] Start: 07-08-2023 Bacteria identified in Blood by Culture Blood Culture [facility] Start: 07-08-2023 Blood culture [facility] Start: 02-26-2023 VIRFUVHOME, Provider : Peggy Zepeda, Status: Pen, Time: 1:30 PM VIRFUVHOME, Provider: Peggy Zepeda, Status: Pen, Time: 1:30 PM [facility] DO Work Phone: Start: 02-09-2023 VIRNPVCLSH, Provider : DORIE RD,YOLIS MENENDEZ, Status: Pen, Time: 6:30 PM VIRNPVCLSH, Provider: DORIE RD,YOLIS MENENDEZ, Status: Pen, Time: 6:30 PM [facility] DO Work Phone: Start: 02-05-2023 Zoster Vaccines (2 of 2) Zoste r Vaccines (2 of 2) [facility] [employer] Start: 07-03-2022 Creatinine measurement [employer] Phone: Start: 07-03-2022 [employer] Work Phone: Start: 06-03-2022 Potassium [Moles/vol ume] in Serum or Plasma POTASSIUM [facility] [employer] [facility] Start: 02-21-2022 End: 04-07-2022 Myocardial spect multiple studies Lexiscan Cardiolite Stress Test (73267) Date: 21-Feb-2022 Comments: Nuclear stress test if not contraindicated. [facility]ha [facility], [facility]. Comment on above: Nuclear stress test if not contraindicated. Start: 08-12-2021 Brncdilat rspse spmt ry pre&post-brncdilat admn PFT Protocol (37954) -- not in office Start: 12-Aug-2021 Intent [facility] [employer] Start: 07-31-2021 Influenza vaccination A [employer] Start: 07-31-2021 [facility]: Start: 07-31-2020 Influenza vaccination Flu vaccine (# 1) [facility] [place] Start: 02-12-2018 Colonoscopy COLORECTAL CAN CER SCREENING DISCUSSION [facility] Start: 02-12-2018 Screening for malign ant neoplasm of [facility]: Start: 02-12-2018 Screening for malign ant neoplasm of colon Flexible sigmoidoscopy [facility] Start: 02-12-2018 Zoster vaccine hzv l emmy for subcutaneous use ZOSTER (SHINGLES) VACCINE (1 of 2) [facility] Start: 02-12-2018 [facility]: Start: 07-27-2015 Screening mammography MAMMOGRA M SCREENING DISCUSSION [facility] Start: 02-12-2013 Colonoscopy COLORECTAL CAN CER SCREENING DISCUSSION [facility] Start: 02-12-2013 Screening for malign ant neoplasm of colon [facility] Work Phone: Start: 2008 Screening for malign ant neoplasm of breast Mammogram [facility] Start: 02-12-1998 Screening for malign ant neoplasm of cervix [facility] Start: 02-12-1989 Screening for malign ant neoplasm of cervix [facility] Start: 02-12-1987 DTaP/Tdap/Td Vaccine s (1 - Tdap) DTaP/Tdap/Td Vaccines (1 - Tdap) [facility] Start: 02-12-1987 Third diphtheria, te tanus and acellular pertussis (DTaP) vaccination TDAP (ADULT) [facility] Start: 02-12-1987 [facility]: Start: 02-12-1986 Hepatitis C screening Hepatitis C Sc reening [facility] Start: 02-12-1986 Tetanus vaccination TETANUS [facility] Start: 1984 COVID-19 VACCINE (1) COVID-19 VACCIN E (1) [facility] Start: 02-12-1983 HIV screening [facility] Start: 02-12-1981 HIV screening HIV SCREENING DISCUSSION [facility] Start: 1980 COVID-19 VACCINE (1) COVID-19 VACCIN E (1) [facility] Start: 1980 Depression Screening [facility] Start: 1980 [facility] Work Phone: Start: 02-12-1974 [facility] Work Phone: Start: 02-12-1973 COVID-19 VACCINE (1) COVID-19 VACCIN E (1) [facility] Start: 02-12-1971 History and physical examination, annual for health maintenance Wellness Visit [facility] Start: 02-12-1969 MMR Vaccines (1 of 1 - Standard series) MMR Vaccines (1 of 1 - Standard series) [facility] Start: 1968 COVID-19 Vaccine (#1) COVID-19 Vacci ne (#1) [facility] Start: 1968 Examination of skin Derm Melan ambrosio Skin Check [facility] Start: 1968 Hepatitis B Vaccines (1 of 3 - 3-dose series) Hepatitis B Vaccines (1 of 3 - 3-dose series) [facility] Start: 1968 Hepatitis C antibody , confirmatory test HEPATITIS C VIRUS SCREENING [facility] Start: 1968 Screening for malign ant neoplasm of colon [facility] Start: 1968 Tetanus vaccination Tetanus: Every 1 0yrs [facility] [employer] [facility] Work Phone: Alanine aminotransfe rase [Enzymatic activity/volume] in Serum or Plasma [facility] Albumin [Mass/volume ] in Serum or Plasma [facility] Alkaline phosphatase [Enzymatic activity/volume] in Serum or Plasma [facility] End: 11-11-2025 LIZ measurement LIZ Lab Routine Positive LIZ (antinuclear antibody) 1 Occurrences starting 11/11/2024 until 11/11/2025 [facility] Work Phone: Comment on above: 1 Occurrences starti ng 11/11/2024 until 11/11/2025 Anion gap measurement [facility] Anion gap measurement [facility] End: 11-11-2025 Antibody to single and double stranded DNA measurement Anti-DNA Double-Stranded Antibody Lab Routine Positive LIZ (antinuclear antibody) 1 Occurrences starting 11/11/2024 until 11/11/2025 [facility] Comment on above: 1 Occurrences starti ng 11/11/2024 until 11/11/2025 Aspartate aminotrans ferase [Enzymatic activity/volume] in Serum or Plasma [facility] Bacteria identified in Blood by Culture [facility] End: 06-15-2021 Basic metabolic 2000 panel - Serum or Plasma [facility] Work Phone: Basic metabolic 2000 panel - Serum or Plasma [facility] Work Phone: Bilirubin, total measurement [facility] BIPAP [facility] Work Phone: Blood Gas, Arterial [facility] Work Phone: BUN/Creatinine ratio [facility] BUN/Creatinine ratio [facility] End: 11-11-2025 C reactive protein [Mass/volume] in Serum or Plasma CRP, Inflammation Lab Routine Positive LIZ (antinuclear antibody) 1 Occurrences starting 11/11/2024 until 11/11/2025 [facility] Comment on above: 1 Occurrences starti ng 11/11/2024 until 11/11/2025 End: 11-11-2025 C4 complement assay C4 Complement Lab Routine Positive LIZ (antinuclear antibody) 1 Occurrences starting 11/11/2024 until 11/11/2025 [facility] Comment on above: 1 Occurrences starti ng 11/11/2024 until 11/11/2025 End: 11-11-2025 C>3< complement assay C3 Complement Lab Routine Positive LIZ (antinuclear antibody) 1 Occurrences starting 11/11/2024 until 11/11/2025 [facility] Comment on above: 1 Occurrences starti ng 11/11/2024 until 11/11/2025 Calcium [Mass/volume ] in Serum or Plasma [facility] Calcium [Mass/volume ] in Serum or Plasma [facility] Carbon dioxide, tota l [Moles/volume] in Serum or Plasma [facility] Carbon dioxide, tota l [Moles/volume] in Serum or Plasma [facility] CBC W Auto Different ial panel - Blood [facility] Work Phone: End: 06-15-2021 CBC W Auto Differential panel - Blood [facility] Work Phone: Chloride [Moles/volu me] in Serum or Plasma [facility] Chloride [Moles/volu me] in Serum or Plasma [facility] End: 11-11-2025 Chromatin Antibodies Chromatin Antibodies Lab Routine Positive LIZ (antinuclear antibody) 1 Occurrences starting 11/11/2024 until 11/11/2025 [facility] Comment on above: 1 Occurrences starti ng 11/11/2024 until 11/11/2025 End: 11-11-2025 Complete blood count with white cell differential, manual CBC and Differential Lab Routine Positive LIZ (antinuclear antibody) 1 Occurrences starting 11/11/2024 until 11/11/2025 [facility] Comment on above: 1 Occurrences starti ng 11/11/2024 until 11/11/2025 End: 11-11-2025 Creatinine [Mass/volume] in Serum or Plasma Creatinine, serum Lab Routine Positive LIZ (antinuclear antibody) 1 Occurrences starting 11/11/2024 until 11/11/2025 [facility] Comment on above: 1 Occurrences starti ng 11/11/2024 until 11/11/2025 Creatinine [Moles/vo lume] in Serum or Plasma [facility] Creatinine [Moles/vo lume] in Serum or Plasma [facility] End: 11-11-2025 Erythrocyte sedimentation rate Sedimentation Rate Lab Routine Positive LIZ (antinuclear antibody) 1 Occurrences starting 11/11/2024 until 11/11/2025 [facility] Comment on above: 1 Occurrences starti ng 11/11/2024 until 11/11/2025 End: 11-11-2025 Extractable nuclear antigen antibody screening test NAVYA Screen (Ro52,Ro60,SSB,SM,INTELLIGENCE OPERATIONS,S CL-70,JO1) Lab Routine Positive LIZ (antinuclear antibody) 1 Occurrences starting 11/11/2024 until 11/11/2025 [facility] Comment on above: 1 Occurrences starti ng 11/11/2024 until 11/11/2025 Glucose [Mass/volume ] in Serum or Plasma [facility] Work Phone: Glucose [Mass/volume ] in Serum or Plasma [facility] Glucose [Mass/volume ] in Serum or Plasma [facility] Hematocrit [Volume Fraction] of Blood [facility] Hematocrit [Volume Fraction] of Blood [facility] Hemoglobin [Mass/vol ume] in Blood [facility] Hemoglobin [Mass/vol ume] in Blood [facility] Hepatic function 200 0 panel - Serum or Plasma [facility] Work Phone: End: 11-11-2025 Hepatic function 2000 panel - Serum or Plasma Hepatic Function Panel Lab Routine Positive LIZ (antinuclear antibody) 1 Occurrences starting 11/11/2024 until 11/11/2025 [facility] Comment on above: 1 Occurrences starti ng 11/11/2024 until 11/11/2025 Leukocytes [#/volume ] in Blood [facility] Leukocytes [#/volume ] in Blood [facility] Magnesium [Mass/volu me] in Serum or Plasma [facility] Work Phone: Magnesium [Mass/volu me] in Serum or Plasma [facility] Mean corpuscular hemoglobin concentration determination [facility] Mean corpuscular hemoglobin concentration determination [facility] Mean corpuscular hemoglobin determination [facility] Mean corpuscular hemoglobin determination [facility] Measurement of renal function [facility] Measurement of renal function [facility] Neutrophil count [facility] Neutrophil count [facility] Neutrophil percent differential count [facility] Neutrophil percent differential count [facility] End: 06-26-2021 Osmolality of Serum or Plasma [facility] Work Phone: Osmolality of Serum or Plasma [facility] Work Phone: Osmolality, Urine [facility] Work Phone: Oxygen therapy [[facility] [facility] [employer] Data Set] [facility] Work Phone: Patient Education [facility] Work Phone: Patient referral [facility] Work Phone: End: 06-19-2021 PBP2A TEST FOR S. AUREUS [facility] Work Phone: PBP2A TEST FOR S. AUREUS [facility] Work Phone: Phosphate [Mass/volu me] in Serum or Plasma [facility] Work Phone: Platelets [#/volume] in Blood [facility] Platelets [#/volume] in Blood [facility] Potassium [Moles/vol ume] in Serum or Plasma [facility] Potassium [Moles/vol ume] in Serum or Plasma [facility] End: 11-11-2025 Protein/Creatinine [Ratio] in Urine Protein / Creatinine Ratio, Urine Lab Routine Positive LIZ (antinuclear antibody) 1 Occurrences starting 11/11/2024 until 11/11/2025 [facility] Comment on above: 1 Occurrences starti ng 11/11/2024 until 11/11/2025 Pulse oximetry, overnight [employer] Work Phone: Red blood cell count [facility] Red blood cell count [facility] Red cell distributio n width determination [facility] Red cell distributio n width determination [facility] RT Communication Order [facility] Work Phone: Sodium [Moles/volume ] in Serum or Plasma [facility] Work Phone: Sodium [Moles/volume ] in Serum or Plasma [facility] Sodium [Moles/volume ] in Serum or Plasma [facility] Sodium, Urine, Random [facility] Work Phone: End: 06-02-2021 Standard ECG ECG ECG STAT One Time for 1 Occurrences starting 06/02/2021 until 06/02/2021 [facility] [employer] [facility] Comment on above: One Time for 1 Occur rences starting 06/02/2021 until 06/02/2021 Total protein measurement [facility] Troponin I.cardiac [Mass/volume] in Serum or Plasma [facility] Work Phone: End: 06-26-2021 Urate [Mass/volume] in Serum or Plasma [facility] Work Phone: End: 11-11-2025 Urate [Mass/volume] in Serum or Plasma Uric Acid Lab Routine Positive LIZ (antinuclear antibody) Recurrent cellulitis 1 Occurrences starting 11/11/2024 until 11/11/2025 [facility] Comment on above: 1 Occurrences starti ng 11/11/2024 until 11/11/2025 Urea nitrogen [Mass/volume] in Serum or Plasma [facility] Urea nitrogen [Mass/volume] in Serum or Plasma [facility] End: 06-26-2021 Urinalysis [facility] Work Phone: End: 11-11-2025 Urinalysis Urinalysis Lab Routine Positive LIZ (antinuclear antibody) 1 Occurrences starting 11/11/2024 until 11/11/2025 [facility] Comment on above: 1 Occurrences starti ng 11/11/2024 until 11/11/2025 [facility] Immunizations Immunization Date Immunization Notes Care Provider Devan avilez 12-11-2022 zoster vaccine recombinant [facility] Work Phone: [facility] Payers Date Payer Category Payer [employer] ANTHEM BL UE/PREF/HMO/PPO .[id number]. 2.7.9.089720.335.315 2023 Self-pay [id number] 2023 Unknown [id number] 2022 Blue Cross Blue Shie ld (Indemnity or Managed Care) - Out of State BCBS OUT OF STATE [facility] .[id number]. 2.7.9.437154.335.315 2021 Blue Cross Blue Shield [id number] 2017 Unknown ANTHEM ANTHEM HM O PPO POS [id number] 2017-Present [id number]. 2.7.3.989712.315 2017 Unknown ANTHEM ANTHEM HM O PPO POS [id number] 2017-Present [id number] 1.2.840.870281.1.13.172. 2.7.3.531647.315 2017 Unknown 1.2.840.529190. 1.13.172. 2.7.3.929982.315 1970 Unknown [id number] 2.16.840.1.602001.3.579. 2.651 1968 Unknown [id number] 2.840.1.681758.3.579. 2.356 1968 Unknown [id number] 2.840.1.216045.3.579. 2.356 1968 Unknown [id number] 2.840.1.291508.3.579. 2.903 1970 Unknown [id number] 2.840.1.086085.3.579. 2.903 Unknown [id number] Unknown [id number] Unknown [id number] Unknown [id number] 2.16.840.1.912634.3.579. 2.462 Unknown [id number] 2.840.1.445033.3.579. 2.462 Unknown [id number] 2.16.840.1.063645.3.579. 2.462 Unknown [id number] 2.16.840.1.939773.3.579. 2.462 Unknown [id number] 2.16.840.1.459111.3.579. 2.462 Unknown [id number] 2.16.840.1.131020.3.579. 2.462 Unknown [id number] 2.16.840.1.301510.3.579. 2.462 Unknown [id number] 2.16.840.1.196287.3.579. 2.462 Unknown [id number] 2.16.840.1.334553.3.579. 2.462 Unknown [id number] 2.16.840.1.839761.3.579. 2.462 Unknown [id number] 2.16.840.1.056709.3.579. 2.462 Unknown [id number] 2.16.840.1.561916.3.579. 2.462 Unknown [id number] 2.16.840.1.459203.3.579. 2.462 Unknown [id number] 2.16.840.1.189537.3.579. 2.462 Unknown [id number] 2.16.840.1.695570.3.579. 2.462 Unknown [id number] 2.16.840.1.359981.3.579. 2.462 Unknown [id number] 2.16.840.1.775107.3.579. 2.462 Unknown [id number] 2.16.840.1.390422.3.579. 2.462 Unknown [id number] 2.16.840.1.741452.3.579. 2.462 Unknown [id number] 2.16.840.1.324767.3.579. 2.462 Unknown [id number] 2.16.840.1.062872.3.579. 2.462 Social History Date Type Detail Facility Start: 03-02-2018 End: 04-04-2024 Tobacco smoking status NYIS Unknown if ever smoked [facility] Start: 1970 Sex Assigned At Not on file [facility] Start: 08-24-2017 End: 06-01-2020 Tobacco smoking status NHIS Never smoker [facility] Start: 06-01-2020 End: 09-04-2023 [facility] Start: 08-24-2017 End: 05-25-2018 Tobacco use and exposure Never used [facility] Start: 05-25-2018 Alcohol intake Current drinke r of alcohol (finding) [facility] Start: 08-18-2017 Alcohol Comment rarely [employer] Exposure to SARS-CoV -2 (event) Yes [facility] Start: 1970 Sex Assigned At Female [facility] Start: 09-04-2023 Non-smoker Non-smoker -Surgery -[facility] DO Work Phone: Start: 09-04-2023 Tobacco use panel [facility] NEGATED: Highlighted row No Social History Information Available No Social History Information Available ONE Change; [facility] Work Phone: Goals Date Patient Goal Desired Activity /State Comment on above: Formatting of this n ote might be different from the original. Short Term Goals 1. Pt will be independent with self manual lymphatic drainage and HEP to maintain progress toward functional goals. 2. Pt will acquire increased knowledge of lymphedema risk factors and prevention including demonstrated compliance with wearing home compression pumps and compression stockings and elevating legs to better manage edema. Glue Maker Goals 3. Reduce LE edema as demontrated by decrease in LE girth by 2 cm to facilitate being able to wear shoes of choice and feel more comfortable in her pants. Functional Status Date Assessment Result Facility 04-08-2024 Functional status Ambulates;[facility] Work Phone: 08-21-2023 Functional status Ambulates;[facility] Work Phone: 07-31-2023 Functional status Ambulates [facility] Work Phone: Mental Status Date Assessment Result Facility 04-08-2024 Cognitive function Voice/Name [facility] Work Phone: 08-21-2023 Cognitive function Voice/Name [facility] Work Phone: 07-31-2023 Cognitive function Voice/Name [facility] Work Phone: 07-08-2023 Cognitive function Level Of Cons ciousness Awake;Alert;Appropriate;Follow s Commands [facility] Work Phone: Clinical Notes 06-02-2021 to 11-11-2024 Yamile Smallwood DO - 11/11/2024 8:27 AM BernaMarry arandaBECCA - 11/11/2024 8:26 AM EST Note Date & Type Note Facility 11-11-2024 Note RHEUMATOLOGY [facility] IENT VISIT Patient Name: Jesusita England : 1970 Medical Record: [id number] PCP: Alondra Crews PA-C Referring provider: Provider, Generic Ems REASON FOR REFERRAL Positive LIZ, recurrent cellulitis ASSESSMENT AND PLAN Jesusita England is a 54 y.o. female who is being seen for evaluation of positive LIZ, recurrent cellulitis. Positive LZI (1: 320 nuclear, homogenous) Elevated CRP Clinical presentation less consistent with an underlying connective tissue disease such as lupus. Did discuss with patient that positive LIZ can be elevated in a variety of settings and can even be elevated in the normal population. CRP can be elevated in the setting of obesity and also may have been elevated in the setting of infection. Will repeat LIZ here. NAVYA, complement levels, chromatin, UA, UPC, CBC, creatinine ordered. Repeat inflammatory markers. Recurrent cellulitis Lymphedema With significant lymphedema, I wonder if lymphatic obstruction could be contributing to her recurrent episodes. Interestingly, they do resolve with antibiotics, which seems less typical for an autoimmune associated rash. We discussed referral to vascular to determine if she has evidence of lymphatic obstruction which could be contributing to these recurrent infections. If unrevealing, could consider further evaluation with infectious disease. Wells syndrome which is an eosinophilic cellulitis also possible. It would be beneficial for her to have dermatology evaluation during 1 of these episodes as well as possible skin biopsy to evaluate histopathology. Return to clinic in 2 to 3 months. Please do not hesitate to contact me with any questions or concerns. Yamile Smallwood DO [facility] Rheumatology [address] [place] [address] O: [phone] F: [phone] The above recommendations were discussed with the patient who understands and agrees with the plan. Portions of this note were created with [employer]. Every effort was made to proofread, but sound-alike errors may occasionally occur. Please contact me for any clarification of note contents. I spent 60 minutes on this patient encounter on the date of visit which included record review, [id number] time with patient, placing orders, documentation in the electronic medical record. HPI/ROS Jesusita England is a 54 y.o. female with who was referred by Provider, [facility] Ems for evaluation of positive LIZ, recurrent cellulitis. I reviewed the nursing intake form. Any corrections needed have been updated in the HPI. Initial visit: Prior records reviewed. Issues with cellulitis in the legs for the last 2-3 years, ocassionally. Source has not clearly been identified in the past. When she has these episodes, it hits her fast. Has had episodes that start with small area, but quickly involves whole leg in 30-60 minutes. Gets fevers, chills. Has been hospitalized multiple times. Typically responds to antibiotics. Had severe COVID in 2020. Was on the ventilator for 14 days. Has recurrent hoarseness because of that. ECMO was discussed. Hospitalized for 2 months. Prior to this, did not have the issues with redness. Cellulitis happened about year later. Running fevers. Was given chlorahexadine spray but notes she is not using faithfully. Last episode has not been for a few months. She did have a pressure ulcer after COVID, but this that healed up by the time she started getting the recurrent cellulitis. Between episodes have some issues with headache and dizziness. Has been diagnosed with carpal tunnel, but has not had surgery due to needing to use a walker. Hand are stiff in the morning. No rashes anywhere else. Occasional sores in mouth. Hair loss has settled out since COVID. Does have issues with lymphedema and fluid rentention in legs. 1 healthy . No miscarriages. No DVTs. No Raynaud's. No inflammatory eye disease. Serologies/pertinent imaging and pathology Labs from 06/13/2024) with positive LIZ 1: 320 nuclear, homogenous, and CRP elevated to 32.4. Sed rate elevated to 31. Uric acid 6.9. CRP mildly elevated to 2.27, B12 258, vitamin D 27, (02/02/2023). B12 258 (02/02/2023) CT of right lower extremity (05/06/2024) with diffuse increased marking in the subcutaneous fat involving the distal mediastinal posterior aspect of the right thigh with overlying skin thickening which is suggestive of cellulitis. Echo from June 2023 with normal EF of 60% no evidence of diastolic dysfunction noted. PFTs from July 2021 with spirometry suggestive of restrictive impairment, but lung volumes were not completed. Diffusion capacity was subsequently reduced. PHYSICAL EXAM Vitals: 11/11/24 0820 BP: 130/77 BP Location: Left arm Patient Position: Sitting Pulse: 93 Weight: (!) 232.6 kg (512 lb 14.4 oz) Constitutional: ?No acute distress. Normal appearance. Not?ill-appearing. HENT: Head normocephali (more content not included)... [facility] 11-11-2024 History of Present illness Narrative Images from the original note were not included. RHEUMATOLOGY NEW PATIENT VISIT Patient Name: Jesusita England : 1970 Medical Record: [id number] PCP: Alondra Crews PA-C Referring provider: Provider, Generic Ems REASON FOR REFERRAL Positive LIZ, recurrent cellulitis ASSESSMENT AND PLAN Jesusita England is a 54 y.o. female who is being seen for evaluation of positive LIZ, recurrent cellulitis. Positive LIZ (1: 320 nuclear, homogenous) Elevated CRP Clinical presentation less consistent with an underlying connective tissue disease such as lupus. Did discuss with patient that positive LIZ can be elevated in a variety of settings and can even be elevated in the normal population. CRP can be elevated in the setting of obesity and also may have been elevated in the setting of infection. Will repeat LIZ here. NAVYA, complement levels, chromatin, UA, UPC, CBC, creatinine ordered. Repeat inflammatory markers. Recurrent cellulitis Lymphedema With significant lymphedema, I wonder if lymphatic obstruction could be contributing to her recurrent episodes. Interestingly, they do resolve with antibiotics, which seems less typical for an autoimmune associated rash. We discussed referral to vascular to determine if she has evidence of lymphatic obstruction which could be contributing to these recurrent infections. If unrevealing, could consider further evaluation with infectious disease. Wells syndrome which is an eosinophilic cellulitis also possible. It would be beneficial for her to have dermatology evaluation during 1 of these episodes as well as possible skin biopsy to evaluate histopathology. Return to clinic in 2 to 3 months. Please do not hesitate to contact me with any questions or concerns. Yamile Smallwood DO [facility] Rheumatology [address] [place] [address] O: [phone] F: [phone] The above recommendations were discussed with the patient who understands and agrees with the plan. Portions of this note were created with [employer]. Every effort was made to proofread, but sound-alike errors may occasionally occur. Please contact me for any clarification of note contents. I spent 60 minutes on this patient encounter on the date of visit which included record review, [id number] time with patient, placing orders, documentation in the electronic medical record. HPI/ROS Jesusita England is a 54 y.o. female with who was referred by Provider, [facility] Ems for evaluation of positive LIZ, recurrent cellulitis. I reviewed the nursing intake form. Any corrections needed have been updated in the HPI. Initial visit: Prior records reviewed. Issues with cellulitis in the legs for the last 2-3 years, ocassionally. Source has not clearly been identified in the past. When she has these episodes, it hits her fast. Has had episodes that start with small area, but quickly involves whole leg in 30-60 minutes. Gets fevers, chills. Has been hospitalized multiple times. Typically responds to antibiotics. Had severe COVID in 2020. Was on the ventilator for 14 days. Has recurrent hoarseness because of that. ECMO was discussed. Hospitalized for 2 months. Prior to this, did not have the issues with redness. Cellulitis happened about year later. Running fevers. Was given chlorahexadine spray but notes she is not using faithfully. Last episode has not been for a few months. She did have a pressure ulcer after COVID, but this that healed up by the time she started getting the recurrent cellulitis. Between episodes have some issues with headache and dizziness. Has been diagnosed with carpal tunnel, but has not had surgery due to needing to use a walker. Hand are stiff in the morning. No rashes anywhere else. Occasional sores in mouth. Hair loss has settled out since COVID. Does have issues with lymphedema and fluid rentention in legs. 1 healthy . No miscarriages. No DVTs. No Raynaud's. No inflammatory eye disease. Serologies/pertinent imaging and pathology Labs from 06/13/2024) with positive LIZ 1: 320 nuclear, homogenous, and CRP elevated to 32.4. Sed rate elevated to 31. Uric acid 6.9. CRP mildly elevated to 2.27, B12 258, vitamin D 27, (02/02/2023). B12 258 (02/02/2023) CT of right lower extremity (05/06/2024) with diffuse increased marking in the subcutaneous fat involving the distal mediastinal posterior aspect of the right thigh with overlying skin thickening which is suggestive of cellulitis. Echo from June 2023 with normal EF of 60% no evidence of diastolic dysfunction noted. PFTs from July 2021 with spirometry suggestive of restrictive impairment, but lung volumes were not completed. Diffusion capacity was subsequently reduced. PHYSICAL EXAM Vitals: 11/11/24 0820 BP: 130/77 BP Location: Left arm Patient Position: Sitting Pulse: 93 Weight: (!) 232.6 kg (512 lb 14.4 oz) Constitutional: ?No acute distress. Normal appearance. Not?ill-appearing. HENT: Head normocephalic?and atraumatic. Good salivary pooling. No oral ulcers detected. Eyes: No discharge.??? Pulmonary: Pulmonary effort is normal. No?respiratory distress. Skin: Warm?and dry. Erythema detected over the medial aspect of distal lower extremities bilaterally. Lymphedema in lower extremities noted. Neurological: Alert. Psychiatric: ???Mood, affect, thought content normal. Musculoskeletal: No synovitis detected in hands. RHEUMATOLOGY NEW PATIENT INTAKE: Have you ever been diagnosed with the following? [] Psoriasis [] Crohn s disease [] Ulcerative Colitis [] Inflammatory eye disease (uveitis, scleritis, episcleritis, iritis) Have you or do you experience any of the following? [] Color changes in your fingers in the cold (Raynaud s) [] Increased thickening of your skin [] Recurrent rash (other than sunburn) when you go into the sun [] A single finger or toe swelling like a sausage [] Fluid around your heart [] Fluid around your lungs [] Miscarriage (if applicable) [] Blood clots REVIEW OF SYSTEMS Constitutional:?? []Fever [x]Fatigue []Unexpected weight loss Eyes:?? []Change in visual acuity []Dry eyes []Redness HENT:? []Oral/nasal ulcers []Dry mouth []Difficulty swallowing Cardiovascular:?? []Chest pain [x]Palpitations [x]Edema Respiratory:?? [x]Cough [x]Shortness of breath GI:?? []Abdominal pain [x]Diarrhea []Constipation [x]Bloody stools : []Dysuria []Hematuria Musculoskeletal: [x]Joint pain [x]Joint swelling Integument:?? []Rash []Hair loss Neurologic:?? [x]Headache [x]Dizziness Psychiatric:?? [x]Depression [x]Anxiety Endocrine:?? []Polydipsia []Polyuria Lymphatic:?? []Swollen glands Allergic/Immunologic: []Seasonal allergies []Frequent infections FAMILY HISTORY Does anyone in your family have a rheumatologic condition (rheumatoid arthritis, psoriatic arthritis, lupus, Sjogren s for example) or skin psoriasis? 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 []Yes [x]No []Previously Please list how long you have smoked and how much per day if applicable: Do you drink alcohol? []Yes [x]No Please list how much per week if applicable: Do you use marijuana, cocaine, heroin, or any other substances? []Yes [x]No Please list if applicable No show/cancellation policy provided to patient [x]Yes []Patient declined documented in this encounter [facility] 05-09-2024 Note [facility] 04-08-2024 Note [facility] 04-08-2024 Discharge summary Note Date/Time April 08, 2024 11:21 am [facility] Medical Records Department [address] [place] [address] Instructions for Home/Discharge Instructions 04/08/24 1119 MR#: [id number] Acct: [id number] Name: JESUSITA ENGLAND Rep #:[id number] : 1970 54 From: Rubin frost MD PCP: Alondra Crews, PA Status:ADM IN Discharge Instructions Diet Discharge Diet: Low fat / Low cholesterol Activity Discharge Activity: Return to Normal Activity Dressing / Incision Call your doctor if you observe: Fever of 101 or Higher, Shortness of breath, Dizziness, Fainting spells, Swelling in the ankles, Chest pain and Increased palpitations (irregular heartbeat) Follow Up Care Test Results: Test results from this visit will be discussed in further detail at your follow-up appointment, if applicable. Discharge Plan Admission Admit Date/Time: 04/04/24 22:22 Attending Provider: Rubin Hadley Primary Care Provider: Alondra Crews Consulting Providers: Calderon Ojeda; Wander Garcia Discharge Orders/Prescriptions Prescriptions: New cefdinir 300 mg capsule 300 mg PO Q12H Qty: 14 0RF Rx Instructions: Start 04/09 Continued acetaminophen 500 mg capsule 1,000 mg PO Q6H PRN (Reason: Pain) aspirin [Adult Low Dose Aspirin] 81 mg tablet,delayed release (DR/EC) 81 mg PO DAILY ferrous sulfate [FeroSul] 325 mg (65 mg iron) Tablet 325 mg PO DAILY@1200 Qty: 30 0RF venlafaxine [Effexor XR] 75 mg capsule,extended release 24hr 225 mg PO DAILY Qty: 90 0RF Rx Instructions: take 3 capsules every AM omeprazole 40 mg capsule,delayed release(DR/EC) 40 mg PO DAILY Patient Comments: TAKE 1 CAPSULE BY MOUTH ONCE DAILY lisinopril 10 mg tablet 20 mg PO DAILY Patient Comments: TAKE 1 TABLET BY MOUTH ONCE DAILY nystatin [Nyamyc] 100,000 unit/gram Powder 1 applic topical BID 30 Days Qty: 60 0RF Protocol: *Topical Application Instructions APPLICATION INSTRUCTIONS: apply to skin folds, particularly BLE cholecalciferol (vitamin D3) 1 tab PO DAILY valacyclovir 1 gram tablet 2,000 mg PO BID PRN (Reason: cold sore) Patient Comments: x1 day Referrals / Follow Up: Alondra Crews PA [Primary Care Provider] - Within 1 Week Disposition Disposition (needs filled in before D/C Order can be placed): Home, Self Care 04/08/24 1125<Electronically signed by Rubin Hadley MD>Rubin Hadley MD CC: Dr. Calderon Ojeda DO; Dr. Wander Garcia MD; VJ Maloney ~ Signed [facility] Work Phone: 1(336) 426-287105-09-2024 Progress note Author Rubin Hadley [facility] April 07, 2024 10:15am Note Date/Time April 07, 2024 10:09a m [facility] Medical Records Department [address] [place] [address] Progress Note - Hospitalist 04/07/24 1006 MR#: [id number] Acct: [id number] Name: JESUSITA ENGLAND Rep #:[id number] : 1970 54 From: Rubin frost MD PCP: VJ Maloney Status:ADM IN Location: KS3 [id number] Subjective Subjective White count has completely resolved and blood cultures are negative. Redness still remains about the same Objective Data Objective Data Vital Signs: Vital Signs Temp Pulse Resp BP Pulse Ox O2 Del Method 97.1 F L 66 18 161/85 H 95 CPAP 04/07/24 05:54 04/07/24 05:54 04/07/24 05:54 04/07/24 05:54 04/07/24 05:54 04/07/24 05:54 Oxygen Delivery Method CPAP Weight: 500 lb 14.244 oz Body Mass Index (BMI) 83.3 Intake & Output: Intake and Output for Last 24 Hours 04/06/24 04/07/24 04/08/24 03:59 03:59 03:59 Intake Total 2239 / 2240 1914.17 / 1914.17 Balance 2239 / 2239 1914. / 1914.17 Lab / Micro Data 04/07/24 06:39 04/07/24 06:39 Labs: Laboratory Results - last 24 hr 04/06/24 09:50: WBC 4.9, RBC 4.56, Hgb 12.0, Hct 39.7, MCV 87.1, MCH 26.3 L, MCHC 30.2 L, RDW Std Deviation 49.1 H, RDW Coeff of Rani 15.5 H, Plt Count 140 L,MPV 9.5, Immature Gran % (Auto) 1.000 H, Neut % (Auto) 75.6 H, Lymph % (Auto) 12.2 L, [place] % (Auto) 10.8 H, Eos % (Auto) 0.2, Baso % (Auto) 0.2, Absolute Neuts (auto) 3.7, Absolute Lymphs (auto) 0.60 L, Nucleated RBC % 0 04/07/24 06:39: WBC 7.0, RBC 4.77, Hgb 12.7, Hct 40.7, MCV 85.3, MCH 26.6 L, MCHC 31.2 L, RDW Std Deviation 47.2 H, RDW Coeff of Rani 15.1 H, Plt Count 191, MPV 9.8, Immature Gran % (Auto) 1.400 H, Neut % (Auto) 71.7 H, Lymph % (Auto) 15.1 L, [place] % (Auto) 11.4 H, Eos % (Auto) 0.0, Baso % (Auto) 0.4, Absolute Neuts (auto) 5.0, Absolute Lymphs (auto) 1.06, Nucleated RBC % 0, Sodium 135 L, Potassium 4.2, Chloride 103, Carbon Dioxide 27.0, Anion Gap 5, BUN 14, Creatinine 0.89, Estim Creat Clear Calc 139.37, Est GFR (MDRD) Af Amer 84, Est GFR (MDRD) Non-Af 69, BUN/Creatinine Ratio 15.7, Glucose 115 H, Calcium 9.6 Micro: Microbiology 04/04/24 20:55 Blood Culture (Wb) - Anticubital Left Blood Culture - Preliminary No growth in 48 hours. 04/04/24 20:55 Blood Culture (Wb) - Port Blood Culture - Preliminary No growth in 48 hours. Physical Exam Narrative General: Alert, Oriented x3, Cooperative, No apparent distress, super morbidly obese HEENT: Atraumatic, PERRLA, EOMI, Normocephalic Oral: Moist Mucosa Neck: Supple, No JVD Lungs: Diminished due to body habitus, Normal air movement, No rhonchi, No wheeze, No rales Cardiovascular: Regular rate, Regular Rhythm, Normal S1, Normal S2, No murmurs, limited due to body habitus Abdomen: Soft, Non Tender, Non-Distended, No Hepato-splenomegaly Extremities: Bilateral lower extremity lymphedema, Capillary Refill Less than 3 Seconds Skin: Right medial thigh redness with slight tenderness, no significant left thigh redness Musculoskeletal: No Tenderness to Palpation of Joints or Extremities Neurological: No focal neurological deficits, Motor Exam 5/5 strength throughout, Sensory exam intact to light touch and pain Psych/Mental Status: Normal Affect, Appropriate Assessment & Plan Assessment/Plan (1) Cellulitis: QUALIFIERS: Site of cellulitis: extremity Site of cellulitis of extremity: lower extremity Laterality: unspecified laterality Qualified Code(s): L03.119 - Cellulitis of unspecified part of limb (2) Lymphedema associated with obesity: (3) Super obesity: (4) Headache: QUALIFIERS: Headache type: tension-type Headache chronicity pattern: acute headache Intractability: not intractable Qualified Code(s): G44.209 - Tension-type headache, unspecified, not intractable (5) PLMD (periodic limb movement disorder): PLAN: Plan 1. Right lower extremity cellulitis with bilateral chronic lower extremity lymphedema ? Continue with IV antibiotics ? Blood cultures are negative ? No sepsis due to insurance ? Will consult infectious disease as she has needed prolonged antibiotics on herprevious hospitalizations for lower extremity cellulitis ?We will check a MRSA screen and if negative discontinue vancomycin 2. Essential HTN/super morbidly obese ? Blood pressure stable ? Continue with her home blood pressure medication ? Continue with aspirin ? Would benefit from lifestyle modification 3. Iron deficiency anemia ? Stable ? Continue with iron replacement 4. GERD ? Stable ? Continue with PPI 5. Anxiety/depression ? Stable ? Continue with Effexor DVT: Lovenox Charges/Coding Visit Charges Inpatient E&M: 44242 Subs Hosp L2 04/07/24 1015 <Electronically signed by Rubin Hadley MD> Cosigner Signature (if applicable): CC: ~ Signed [facility] Work Phone: 1(481) 178-456605-08-2024 Consult note Author Wander Garcia [facility] April 06, 2024 3:33pm Note Date/Time April 06, 2024 3:33pm [facility] Medical Records Department [address] [place] [address] Consultation - Infectious Dx 04/06/24 1530 MR#: [id number] Acct: [id number] Name: JESUSITA ENGLAND Rep #:[id number] : 1970 54 From: Wander bledsoe MD PCP: VJ Maloney Status:ADM IN Location: MS3 [id number] Assessment & Plan Assessment/Plan (1) Cellulitis: QUALIFIERS: Site of cellulitis: extremity Site of cellulitis of extremity: lower extremity Laterality: unspecified laterality Qualified Code(s): L03.119 - Cellulitis of unspecified part of limb PLAN: Nonpurulent cellulitis. Last episode of cellulitis was 07/2023. Improving. Bcx ngtd. Will narrow to ceftriaxone, plan on po abx at discharge. Will follow, thank you (2) Lymphedema associated with obesity: HPI Consult Data Date of Consult: 04/06/24 HPI Narrative Reason for Consultation: cellulitis HPI Narrative: JESUSITA ENGLAND, is a 54 F with chronic edema, presented 5/6 with one day history ofsudden onset fever, chills, fatigue, BLE redness (R medial thigh most of all). No known inciting events. Uses lymphedema pumps. No cellulitis episodes since admit 07/2023. Admitted on vanc/zosyn, feeling better, no drainage. Full ROS performed and neg except as noted above. [facility] Medical History Abnormal echocardiogram Anxiety Ascending aorta dilatation Asthma Depression Failure of outpatient treatment GERD without esophagitis Heel spur Hyperglycemia IBS (irritable bowel syndrome) Insomnia Osteoarthritis (arthritis due to wear and tear of joints) Home Medications acetaminophen 500 mg capsule 1,000 mg PO Q6H PRN Pain 07/11/21 [History Last Taken Unknown] aspirin 81 mg tablet,delayed release (Adult Low Dose Aspirin) 81 mg PO DAILY blood thinner 07/11/21 [History Last Taken Unknown] ferrous sulfate 325 mg (65 mg iron) tablet (FeroSul) 325 mg PO DAILY@1200 iron #30 tabs 08/01/21 [Rx Last Taken Unknown] venlafaxine 75 mg capsule,extended release 24 hr (Effexor XR) 225 mg (3 x 75 mg)PO DAILY depression #90 caps 09/03/21 [Rx Last Taken Unknown] lisinopril 10 mg tablet 20 mg PO DAILY blood pressure 07/24/23 [History Last Taken Unknown] omeprazole 40 mg capsule,delayed release 40 mg PO DAILY stomach 07/24/23 [History Last Taken Unknown] nystatin 100,000 unit/gram topical powder (Nyamyc) 1 applic topical BID yeast infection 30 days #60 grams 07/31/23 [Rx Last Taken Unknown] cholecalciferol (vitamin D3) 1 tab PO DAILY supplement 04/04/24 [History Last Taken Unknown] Allergy/AdvReac Type Severity Reaction Status Date / Time adhesive tape AdvReac Unknown Other Verified 04/04/24 19:07 Family History Mother Alzheimer's dementia Surgical History H/O foot surgery History of cholecystectomy History of hip surgery Social History household members: spouse housing: house number of children: 1 current occupational status: employed 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 For lunch she has a bowl of soup and crackers which she takes to work. Sometimes has pretzels for a snack. Eats lunch at 12:30- 1 and does not get home until 7 PM and then she is starved. Her sometimes cooks and it is usually not healthy and may include pizza, hotdogs, fast food. Does not plan meals and her hisband is not supportive of healthy eating. He is a little overweight and likes to eat junk. Physical Exam Const alert, oriented x3 and no apparent distress General Appearance: cooperative HEENT normocephalic and head/scalp atraumatic Eyes PERRL and EOMs intact bilaterally Neck supple and No nodes Resp normal air movement and clear to auscultation bilaterally Cardio regular rate and regular rhythm GI soft to palpation, non-tender and non-distended Extremity General Extremity: edema Skin Skin Narrative: BLE edema, medial R thigh is area of most redness, induration, warmth. Mild tenderness. Neuro CN's II-XII intact bilaterally Lab / Micro Data Attestation: I reviewed the patient's lab results. 04/06/24 09:50 04/06/24 06:35 Labs: Laboratory Results - last 24 hr 04/05/24 20:54: Vancomycin Trough 18.5 H 04/06/24 06:35: WBC Cancelled, Corrected WBC Cancelled, RBC Cancelled, Hgb Cancelled, Hct Cancelled, MCV Cancelled, MCH Cancelled, MCHC Cancelled, RDW Std Deviation Cancelled, RDW Coeff of Rani Cancelled, Plt Count Cancelled, MPV Cancelled, Immature Gran % (Auto) Cancelled, Neut % (Auto) Cancelled, Lymph % (Auto) Cancelled, [place] % (Auto) Cancelled, Eos % (Auto) Cancelled, Baso % (Auto)Cancelled, Absolute Neuts (auto) Cancelled, Absolute Lymphs (auto) Cancelled, Total Counted Cancelled, Neutrophils % (Manual) Cancelled, Band Neutrophils % Cancelled, Lymphocytes % (Manual) Cancelled, Monocytes % (Manual) Cancelled, Eosinophils % (Manual) Cancelled, Basophils % (Manual) Cancelled, Metamyelocytes% Cancelled, Myelocytes % Cancelled, Promyelocytes % Cancelled, Blast Cells % Cancelled, Plasma Cell % (Manual) Cancelled, Other Cells % Cancelled, Nucleated RBC % Cancelled, Nucleated RBCs/100 WBC Cancelled, Differential Comment Cancelled, Diff Path Review Cancelled, Hypersegmented Neuts Cancelled, Atypical Lymphocytes Cancelled, Reactive Lymphocytes Cancelled, Smudge Cells Cancelled, Toxic Granulation Cancelled, Toxic Vacuolation Cancelled, Dohle Bodies Cancelled, Megan Rods Cancelled, Platelet Estimate Cancelled, Plt Morphology Comment Cancelled, RBC Morphology Cancelled 04/06/24 06:35: RBC Morphology Cancelled, Polychromasia Cancelled, HypochromasiaCancelled, Basophilic Stippling Cancelled, Anisocytosis Cancelled, Microcytosis Cancelled, Macrocytosis Cancelled, Spherocytes Cancelled, Sickle Cells Cancelled, Target Cells Cancelled, Tear Drop Cells Cancelled, Ovalocytes Cancelled, Stomatocytes Cancelled, [place] Bodies Cancelled, [place] Cells Cancelled, Bite Cells Cancelled, Crenated Cell Cancelled, Acanthocytes (Spur) Cancelled, Rouleaux Cancelled, Schistocytes Cancelled, Sodium 138, Potassium 4.1, Chloride 106, Carbon Dioxide 27.0, Anion Gap 5, BUN 13, Creatinine 0.72, Estim Creat Clear Calc 172.27, Est GFR (MDRD) Af Amer 108, Est GFR (MDRD) Non-Af89, BUN/Creatinine Ratio 18.1, Glucose 98, Calcium 9.0 04/06/24 09:50: WBC 4.9, RBC 4.56, Hgb 12.0, Hct 39.7, MCV 87.1, MCH 26.3 L, MCHC 30.2 L, RDW Std Deviation 49.1 H, RDW Coeff of Rani 15.5 H, Plt Count 140 L,MPV 9.5, Immature Gran % (Auto) 1.000 H, Neut % (Auto) 75.6 H, Lymph % (Auto) 12.2 L, [place] % (Auto) 10.8 H, Eos % (Auto) 0.2, Baso % (Auto) 0.2, Absolute Neuts (auto) 3.7, Absolute Lymphs (auto) 0.60 L, Nucleated RBC % 0 Imaging Radiology Impression Venous Doppler Study 04/05/24 10:55 Interpretation Summary Deep veins of the bilateral lower extremities are patent and compressible segmentally. There is no evidence of bilateral lower extremity deep vein thrombosis. The bilateral great saphenous veins appear patent and compressible segmentally. Ordering Physician: Rubin Hadley Referring Physician: Alondra Crews Performed By: Minor Antonio Sly 04/06/24 1533 <Electronically signed by Wander Garcia MD> Cosigner Signature (if applicable): CC: VJ Maloney~ Signed [facility] Work Phone: 1(404) 468-662105-08-2024 Progress note Author Rubin Hadley [facility] April 06, 2024 2:46pm Note Date/Time April 06, 2024 2:46pm [facility] Medical Records Department [address] [place] [address] Progress Note - Hospitalist 04/06/24 1444 MR#: [id number] Acct: [id number] Name: JESUSITA ENGLAND Rep #:[id number] : 1970 54 From: Rubin frost MD PCP: VJ Maloney Status:ADM IN Location: KS3 [id number] Subjective Subjective doing well, no issues overnight. Redness is about the same Objective Data Objective Data Vital Signs: Vital Signs Temp Pulse Resp BP Pulse Ox O2 Del Method 97.9 F 67 16 144/67 H 95 Room Air 04/06/24 14:03 04/06/24 14:03 04/06/24 14:03 04/06/24 14:03 04/06/24 14:03 04/06/24 14:03 Oxygen Delivery Method Room Air Weight: 500 lb 14.244 oz Body Mass Index (BMI) 83.3 Intake & Output: Intake and Output for Last 24 Hours 04/05/24 04/06/24 04/07/24 03:59 03:59 03:59 Intake Total 1230 / 1230 2240 / 2240 680 / 680 Balance 1230 / 1230 2240 / 2240 680 / 680 Lab / Micro Data 04/06/24 09:50 04/06/24 06:35 Labs: Laboratory Results - last 24 hr 04/05/24 20:54: Vancomycin Trough 18.5 H 04/06/24 06:35: WBC Cancelled, Corrected WBC Cancelled, RBC Cancelled, Hgb Cancelled, Hct Cancelled, MCV Cancelled, MCH Cancelled, MCHC Cancelled, RDW Std Deviation Cancelled, RDW Coeff of Rani Cancelled, Plt Count Cancelled, MPV Cancelled, Immature Gran % (Auto) Cancelled, Neut % (Auto) Cancelled, Lymph % (Auto) Cancelled, [place] % (Auto) Cancelled, Eos % (Auto) Cancelled, Baso % (Auto)Cancelled, Absolute Neuts (auto) Cancelled, Absolute Lymphs (auto) Cancelled, Total Counted Cancelled, Neutrophils % (Manual) Cancelled, Band Neutrophils % Cancelled, Lymphocytes % (Manual) Cancelled, Monocytes % (Manual) Cancelled, Eosinophils % (Manual) Cancelled, Basophils % (Manual) Cancelled, Metamyelocytes% Cancelled, Myelocytes % Cancelled, Promyelocytes % Cancelled, Blast Cells % Cancelled, Plasma Cell % (Manual) Cancelled, Other Cells % Cancelled, Nucleated RBC % Cancelled, Nucleated RBCs/100 WBC Cancelled, Differential Comment Cancelled, Diff Path Review Cancelled, Hypersegmented Neuts Cancelled, Atypical Lymphocytes Cancelled, Reactive Lymphocytes Cancelled, Smudge Cells Cancelled, Toxic Granulation Cancelled, Toxic Vacuolation Cancelled, Dohle Bodies Cancelled, Megan Rods Cancelled, Platelet Estimate Cancelled, Plt Morphology Comment Cancelled, RBC Morphology Cancelled 04/06/24 06:35: RBC Morphology Cancelled, Polychromasia Cancelled, HypochromasiaCancelled, Basophilic Stippling Cancelled, Anisocytosis Cancelled, Microcytosis Cancelled, Macrocytosis Cancelled, Spherocytes Cancelled, Sickle Cells Cancelled, Target Cells Cancelled, Tear Drop Cells Cancelled, Ovalocytes Cancelled, Stomatocytes Cancelled, [place] Bodies Cancelled, [place] Cells Cancelled, Bite Cells Cancelled, Crenated Cell Cancelled, Acanthocytes (Spur) Cancelled, Rouleaux Cancelled, Schistocytes Cancelled, Sodium 138, Potassium 4.1, Chloride 106, Carbon Dioxide 27.0, Anion Gap 5, BUN 13, Creatinine 0.72, Estim Creat Clear Calc 172.27, Est GFR (MDRD) Af Amer 108, Est GFR (MDRD) Non-Af89, BUN/Creatinine Ratio 18.1, Glucose 98, Calcium 9.0 04/06/24 09:50: WBC 4.9, RBC 4.56, Hgb 12.0, Hct 39.7, MCV 87.1, MCH 26.3 L, MCHC 30.2 L, RDW Std Deviation 49.1 H, RDW Coeff of Rani 15.5 H, Plt Count 140 L,MPV 9.5, Immature Gran % (Auto) 1.000 H, Neut % (Auto) 75.6 H, Lymph % (Auto) 12.2 L, [place] % (Auto) 10.8 H, Eos % (Auto) 0.2, Baso % (Auto) 0.2, Absolute Neuts (auto) 3.7, Absolute Lymphs (auto) 0.60 L, Nucleated RBC % 0 Radiography Diagnostic Testing: Radiology Impression Venous Doppler Study 04/05/24 10:55 Interpretation Summary Deep veins of the bilateral lower extremities are patent and compressible segmentally. There is no evidence of bilateral lower extremity deep vein thrombosis. The bilateral great saphenous veins appear patent and compressible segmentally. Ordering Physician: Rubin Hadley Referring Physician: Alondra Crews Performed By: Minor Antonio, RVT Physical Exam Narrative General: Alert, Oriented x3, Cooperative, No apparent distress, super morbidly obese HEENT: Atraumatic, PERRLA, EOMI, Normocephalic Oral: Moist Mucosa Neck: Supple, No JVD Lungs: Diminished due to body habitus, Normal air movement, No rhonchi, No wheeze, No rales Cardiovascular: Regular rate, Regular Rhythm, Normal S1, Normal S2, No murmurs, limited due to body habitus Abdomen: Soft, Non Tender, Non-Distended, No Hepato-splenomegaly Extremities: Bilateral lower extremity lymphedema, Capillary Refill Less than 3 Seconds Skin: Right medial thigh redness with slight tenderness, no significant left thigh redness Musculoskeletal: No Tenderness to Palpation of Joints or Extremities Neurological: No focal neurological deficits, Motor Exam 5/5 strength throughout, Sensory exam intact to light touch and pain Psych/Mental Status: Normal Affect, Appropriate Assessment & Plan Assessment/Plan (1) Cellulitis: QUALIFIERS: Site of cellulitis: extremity Site of cellulitis of extremity: lower extremity Laterality: unspecified laterality Qualified Code(s): L03.119 - Cellulitis of unspecified part of limb (2) Lymphedema associated with obesity: (3) Super obesity: (4) Headache: QUALIFIERS: Headache type: tension-type Headache chronicity pattern: acute headache Intractability: not intractable Qualified Code(s): G44.209 - Tension-type headache, unspecified, not intractable (5) PLMD (periodic limb movement disorder): PLAN: Plan 1. Right lower extremity cellulitis with bilateral chronic lower extremity lymphedema ? Continue with IV antibiotics ? Blood cultures are pending ? No sepsis due to insurance ? Will consult infectious disease as she has needed prolonged antibiotics on herprevious hospitalizations for lower extremity cellulitis ?We will check a MRSA screen and if negative discontinue vancomycin 2. Essential HTN/super morbidly obese ? Blood pressure stable ? Continue with her home blood pressure medication ? Continue with aspirin ? Would benefit from lifestyle modification 3. Iron deficiency anemia ? Stable ? Continue with iron replacement 4. GERD ? Stable ? Continue with PPI 5. Anxiety/depression ? Stable ? Continue with Effexor DVT: Lovenox Charges/Coding Visit Charges Inpatient E&M: 73221 Subs Hosp L2 04/06/24 1446 <Electronically signed by Rubin Hadley MD> Cosigner Signature (if applicable): CC: ~ Signed [facility] Work Phone: 1(299) 574-238105-07-2024 Consult note Author Cole Kelly [facility] April 05, 2024 9:48pm Note Date/Time April 05, 2024 9:48pm [facility] Medical Records Department [address] [place] [address] Pharmacokinetic/Renal -Consult 04/05/242146 MR#: [id number] Acct: [id number] Name: JESUSITA ENGLAND Rep #:[id number] : 1970 54 From: Cole Melton od PCP: VJ Maloney Status:ADM IN Y Location: [place] [id number] Consult Antibiotic Management Pharmacy has been consulted to manage selected antibiotic: Vancomycin Type of Intervention Type of Consult: Follow-up Labs Labs: Sodium 135 mmol/L (136-145) L 04/04/24 20:55 Potassium 4.6 mmol/L (3.5-5.1) 04/04/24 20:55 Chloride 101 mmol/L (98-107) 04/04/24 20:55 Carbon Dioxide 29.0 mmol/L (21.0-32.0) 04/04/24 20:55 Anion Gap 5 (5-15) 04/04/24 20:55 BUN 21 mg/dL (7-18) H 04/04/24 20:55 Creatinine 1.05 mg/dL (0.55-1.02) H 04/04/24 20:55 Est GFR (MDRD) Af Amer 70 mL/min (>60) 04/04/24 20:55 Est GFR (MDRD) Non-Af 58 mL/min (>60) L 04/04/24 20:55 BUN/Creatinine Ratio 20.0 RATIO (10-20) 04/04/24 20:55 Glucose 113 mg/dL (74-106) H 04/04/24 20:55 Vancomycin Trough 18.5 ug/mL (5.0-15.0) H 04/05/24 20:54 Pharmacy Plan for Drug Dosing Pharmacy Plan for Drug Dosing: Pharmacy Service will continue to monitor and adjust dosing as required. TROUGH 18.5 @ 7.5 HOURS (GOAL 15-20). NO CHANGES, FOLLOW UP TROUGH IN 2 DAYS Follow-Up Labs Follow-Up Labs: Trough: Vancomycin Date/Time Labs Ordered Labs to be done on [date and time ordered]: 04/07 @ 2100 04/05/24 <Electronically signed by Cole seth> Date _ Cole Pino Signature (if applicable): Date CC: ~ Signed [facility] Work Phone: 1(529) 851-236505-07-2024 Progress note Author Rubin Hadley [facility] April 05, 2024 10:53am Note Date/Time April 05, 2024 10:53a ashli [facility] Medical Records Department [address] [place] [address] Progress Note - Hospitalist 04/05/24 1048 MR#: [id number] Acct: [id number] Name: JESUSITA ENGLAND Rep #:[id number] : 1970 54 From: Rubin frost MD PCP: VJ Maloney Status:ADM IN Location: MS3 [id number] Subjective Subjective Doing well, no issues overnight. Has right medial thigh redness greater than left Objective Data Objective Data Vital Signs: Vital Signs Temp Pulse Resp BP Pulse Ox O2 Del Method 97.0 F L 72 16 118/60 94 Room Air 04/05/24 09:24 04/05/24 09:24 04/05/24 09:24 04/05/24 09:24 04/05/24 09:24 04/05/24 09:24 Oxygen Delivery Method Room Air Weight: 500 lb 14.244 oz Body Mass Index (BMI) 83.3 Intake & Output: Intake and Output for Last 24 Hours 04/04/24 04/05/24 04/06/24 03:59 03:59 03:59 Intake Total 1230 / 1230 100 / 100 Balance 1230 / 1230 100 / 100 Lab / Micro Data 04/04/24 20:55 04/04/24 20:55 Labs: Laboratory Results - last 24 hr 04/04/24 20:55: WBC 15.7 H, RBC 4.57, Hgb 12.4, Hct 39.1, MCV 85.6, MCH 27.1, MCHC 31.7 L, RDW Std Deviation 47.2 H, RDW Coeff of Rani 15.2 H, Plt Count 187, MPV 10.3, Immature Gran % (Auto) 0.800, Neut % (Auto) 91.5 H, Lymph % (Auto) 2.6L, [place] % (Auto) 5.0, Eos % (Auto) 0.0, Baso % (Auto) 0.1, Absolute Neuts (auto)14.3 H, Absolute Lymphs (auto) 0.41 L, Nucleated RBC % 0, Differential Comment SCANNED, Sodium 135 L, Potassium 4.6, Chloride 101, Carbon Dioxide 29.0, Anion Gap 5, BUN 21 H, Creatinine 1.05 H, Estim Creat Clear Calc 118.07, Est GFR (MDRD) Af Amer 70, Est GFR (MDRD) Non-Af 58 L, BUN/Creatinine Ratio 20.0, Glucose 113 H, Lactic Acid 1.4, Calcium 9.1, Total Bilirubin 0.60, AST 26, ALT 24, Alkaline Phosphatase 76, Total Protein 7.6, Albumin 3.3, Globulin 4.3 H, Albumin/Globulin Ratio 0.8 L Physical Exam Narrative General: Alert, Oriented x3, Cooperative, No apparent distress, super morbidly obese HEENT: Atraumatic, PERRLA, EOMI, Normocephalic Oral: Moist Mucosa Neck: Supple, No JVD Lungs: Diminished due to body habitus, Normal air movement, No rhonchi, No wheeze, No rales Cardiovascular: Regular rate, Regular Rhythm, Normal S1, Normal S2, No murmurs, limited due to body habitus Abdomen: Soft, Non Tender, Non-Distended, No Hepato-splenomegaly Extremities: Bilateral lower extremity lymphedema, Capillary Refill Less than 3 Seconds Skin: Right medial thigh redness with slight tenderness, no significant left thigh redness Musculoskeletal: No Tenderness to Palpation of Joints or Extremities Neurological: No focal neurological deficits, Motor Exam 5/5 strength throughout, Sensory exam intact to light touch and pain Psych/Mental Status: Normal Affect, Appropriate Assessment & Plan Assessment/Plan (1) Cellulitis: QUALIFIERS: Site of cellulitis: extremity Site of cellulitis of extremity: lower extremity Laterality: unspecified laterality Qualified Code(s): L03.119 - Cellulitis of unspecified part of limb (2) Lymphedema associated with obesity: (3) Super obesity: (4) Headache: QUALIFIERS: Headache type: tension-type Headache chronicity pattern: acute headache Intractability: not intractable Qualified Code(s): G44.209 - Tension-type headache, unspecified, not intractable (5) PLMD (periodic limb movement disorder): PLAN: Plan 1. Right lower extremity cellulitis with bilateral chronic lower extremity lymphedema ? Continue with IV antibiotics ? Blood cultures are pending ? No sepsis due to insurance 2. Essential HTN/super morbidly obese ? Blood pressure stable ? Continue with her home blood pressure medication ? Continue with aspirin ? Would benefit from lifestyle modification 3. Iron deficiency anemia ? Stable ? Continue with iron replacement 4. GERD ? Stable ? Continue with PPI 5. Anxiety/depression ? Stable ? Continue with Effexor DVT: Lovenox Charges/Coding Visit Charges Inpatient E&M: 64149 Subs Hosp L2 04/05/24 1053 <Electronically signed by Rubin Hadley MD> Cosigner Signature (if applicable): CC: ~ Signed [facility] Work Phone: 1(814) [phone] History and physical note Author Calderon Swanson [facility] April 05, 2024 5:52am Note Date/Time April 04, 2024 10:03p m [facility] Medical Records Department [address] [place] [address] H&P Exam - Hospitalist 04/04/241 MR#: [id number] Acct: [id number] Name: JESUSITA ENGLAND Rep #:[id number] : 1970 54 From: Calderon Chowdhury o PCP: VJ Maloney Status:ADM IN Location: [facility] [id number] HPI - General General Date of Admission: 04/04/24 Date of Service: 04/04/24 Chief Complaint: Bilateral lower extremity redness and swelling. HPI Narrative JESUSITA ENGLAND, is a 54 F with a past medical history of essential hypertension, super morbid obesity; with BMI of 87.2 this admission, obesity hypoventilation syndrome; on supplemental oxygen, MIGUEL; on CPAP, bilateral lower extremity lymphedema, history of stage III sacral decubitus ulcer, history of dilatation of the ascending aorta, remote history of tobacco abuse (quit 30 years ago), asthma, ESTEFANIA, history of cholecystectomy, history of foot surgery, history of hipsurgery, GERD, IBS, depression with anxiety, osteoarthritis and history of admission here from August 18, 2023 to August 21, 2023 for treatment of bilateral lower extremity cellulitis requiring infectious disease consult with Dr. Garcia who presents to [facility] ER complaining of bilateral lower extremity redness and swelling. Ms. England reports her symptoms began approximately 2 to 3 days prior to admission with a gradual onset of progressively worsening lower extremity redness and swelling typical of her previous bouts of lower extremity cellulitis. She also admits to fever of 100.2?F and an associated tension type headache that is persistent but she denies being bedridden, calf tenderness, varicose veins, recent surgery or history of DVT. In the ER she was diagnosed with recurrent bilateral lower extremity cellulitis in the setting of chronic lower extremity lymphedema with fever and leukocytosis of 15.7 present on admission consistent with suspected SIRS and shewas then admitted to the general medical floor for ongoing care for stay that isexpected to be greater than 2 midnights. [facility] Medical History Abnormal echocardiogram Anxiety Ascending aorta dilatation Asthma Depression Failure of outpatient treatment GERD without esophagitis Heel spur Hyperglycemia IBS (irritable bowel syndrome) Insomnia Osteoarthritis (arthritis due to wear and tear of joints) Home Medications acetaminophen 500 mg capsule 1,000 mg PO Q6H PRN Pain 07/11/21 [History Last Taken Unknown] aspirin 81 mg tablet,delayed release (Adult Low Dose Aspirin) 81 mg PO DAILY blood thinner 07/11/21 [History Last Taken Unknown] ferrous sulfate 325 mg (65 mg iron) tablet (FeroSul) 325 mg PO DAILY@1200 iron #30 tabs 08/01/21 [Rx Last Taken Unknown] venlafaxine 75 mg capsule,extended release 24 hr (Effexor XR) 225 mg (3 x 75 mg)PO DAILY depression #90 caps 09/03/21 [Rx Last Taken Unknown] lisinopril 10 mg tablet 20 mg PO DAILY blood pressure 07/24/23 [History Last Taken Unknown] omeprazole 40 mg capsule,delayed release 40 mg PO DAILY stomach 07/24/23 [History Last Taken Unknown] nystatin 100,000 unit/gram topical powder (Nyamyc) 1 applic topical BID yeast infection 30 days #60 grams 07/31/23 [Rx Last Taken Unknown] cholecalciferol (vitamin D3) 1 tab PO DAILY supplement 04/04/24 [History Last Taken Unknown] Allergy/AdvReac Type Severity Reaction Status Date / Time adhesive tape AdvReac Unknown Other Verified 04/04/24 19:07 Family History Mother Alzheimer's dementia Surgical History H/O foot surgery History of cholecystectomy History of hip surgery Social History household members: spouse housing: house number of children: 1 current occupational status: employed 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 For lunch she has a bowl of soup and crackers which she takes to work. Sometimes has pretzels for a snack. Eats lunch at 12:30- 1 and does not get home until 7 PM and then she is starved. Her sometimes cooks and it is usually not healthy and may include pizza, hotdogs, fast food. Does not plan meals and her hisband is not supportive of healthy eating. He is a little overweight and likes to eat junk. ROS ROS Narrative Review of systems: General: Patient admits to fever but denies chills. HENT: Patient admits to persistent generalized tension type headache but she denies stuffy nose, denies sore throat EYES: Denies changes in vision or discharge from eyes. Resp: Denies cough, denies shortness of breath Cardiac: Denies chest pain, palpitations or heart racing. GI: Denies abdominal pain, denies changes in bowel, denies nausea or vomiting. : Denies changes in urination Extremity: Patient admits to increasing erythema and edema of both lower extremities as per HPI. Musculoskeletal: Feels somewhat generally weak and unwell Neuro: Patient admits to headache but she denies paresthesias or focal neurologic deficits. Heme: Denies any bleeding or bruising Skin: Patient admits to worsening erythema and edema of bilateral lower extremities with outlined margins noted. Psychiatric: No complaints voiced related uncontrolled depression or anxiety. Endocrine: No polyuria, polydipsia or polyphagia. The rest of the 14 point ROS was negative except for positives in HPI. Vital Signs Vital Signs Vital Signs: 04/04/24 19:06 04/04/24 21:07 Temperature 100.2 F H 97.8 F Temperature Source Oral Temporal Pulse Rate 112 H 89 Respiratory Rate 20 H 28 H Blood Pressure 129/69 H 116/64 Blood Pressure Mean 89 81 Pulse Ox 95 94 Oxygen Delivery Method Room Air Room Air Weight Weight: 508 lb 2.648 oz Body Mass Index (BMI) 87.2 Physical Exam Const alert, oriented x3, no apparent distress, average body habitus and healthy appearing General Appearance: cooperative HEENT normocephalic, head/scalp atraumatic, hearing grossly normal bilaterally and moist oral mucous membranes Eyes PERRL and EOMs intact bilaterally Neck no lymphadenopathy and supple Resp normal respiratory effort, no retractions, no use of accessory muscles and clearto auscultation bilaterally Cardio regular rate and regular rhythm GI normal to inspection, nondistended, normoactive bowel sounds, soft to palpation,non-tender and non-distended GI Narrative: Morbidly obese. Skin Skin Narrative: Patient denies obvious erythema and edema of her bilateral lower extremities without line of margins noted and no signs of vascular compromise. Neuro oriented x3, CN's II-XII intact bilaterally, moves all extremities and no focal motor deficits Sensorium / Orientation: awake, alert, oriented to person, oriented to place andoriented to time Speech: speech normal Psych affect normal Results Medical Records Data Attestation: I reviewed the patient's medical records Lab / Micro Data Attestation: I reviewed the patient's lab results. 04/04/24 20:55 04/04/24 20:55 Labs: Laboratory Results - last 24 hr 04/04/24 20:55: WBC 15.7 H, RBC 4.57, Hgb 12.4, Hct 39.1, MCV 85.6, MCH 27.1, MCHC 31.7 L, RDW Std Deviation 47.2 H, RDW Coeff of Rani 15.2 H, Plt Count 187, MPV 10.3, Immature Gran % (Auto) 0.800, Neut % (Auto) 91.5 H, Lymph % (Auto) 2.6L, [place] % (Auto) 5.0, Eos % (Auto) 0.0, Baso % (Auto) 0.1, Absolute Neuts (auto)14.3 H, Absolute Lymphs (auto) 0.41 L, Nucleated RBC % 0, Sodium 135 L, Potassium 4.6, Chloride 101, Carbon Dioxide 29.0, Anion Gap 5, BUN 21 H, Creatinine 1.05 H, Estim Creat Clear Calc 118.07, Est GFR (MDRD) Af Amer 70, EstGFR (MDRD) Non-Af 58 L, BUN/Creatinine Ratio 20.0, Glucose 113 H, Lactic Acid 1.4, Calcium 9.1, Total Bilirubin 0.60, AST 26, ALT 24, Alkaline Phosphatase 76,Total Protein 7.6, Albumin 3.3, Globulin 4.3 H, Albumin/Globulin Ratio 0.8 L Assessment & Plan Assessment/Plan (1) Cellulitis: QUALIFIERS: Site of cellulitis: extremity Site of cellulitis of extremity: lower extremity Laterality: unspecified laterality Qualified Code(s): L03.119 - Cellulitis of unspecified part of limb (2) Lymphedema associated with obesity: (3) Super obesity: (4) Headache: QUALIFIERS: Headache type: tension-type Headache chronicity pattern: acute headache Intractability: not intractable Qualified Code(s): G44.209 - Tension-type headache, unspecified, not intractable (5) PLMD (periodic limb movement disorder): PLAN: Plan 1. Recurrent bilateral lower extremity cellulitis in the setting of chronic lower extremity lymphedema with fever and leukocytosis of 15.7 consistent with suspected SIRS - Admit to general medical floor. Continue broad-spectrum antibiotics with IV vancomycin and await culture and sensitivity data. Patient's fever has resolved after Toradol and her initial lactate was normal at1.4 mmol/L with no other signs of organ failure or hypotension arguing against sepsis. Give Tylenol as needed pain or fever. 2. Super morbid obesity; with BMI of 87.2 this admission with chronic obesity hypoventilation syndrome and obstructive sleep apnea; on CPAP complicating #1 - Weight loss will be recommended. Continue nocturnal CPAP as previous. Continuenystatin powder as previous. 3. History of admission here from August 18, 2023 to August 21, 2023 for treatment of bilateral lower extremity cellulitis requiring infectious disease consult with Dr. Garcia - Noted. 4. Essential hypertension - Continue home regimen as previous plus give as needed IV hydralazine for systolic blood pressure greater than 160 mmHg. 5. History of stage III sacral decubitus ulcer - Noted. 6. History of dilatation of the ascending aorta - Noted. Check echocardiogram this admission to reassess. 7. Remote history of tobacco abuse (quit 30 years ago) - Noted. 8. Asthma - Stable with no evidence of acute flare. Continue as needed nebulizers. 9. ESTEFANIA - Resume iron supplementation as previous. 10. History of cholecystectomy - Noted. 11. History of foot surgery - Noted. 12. History of hip surgery - Noted. 13. GERD - Continue PPI. 14. IBS- Stable. 15. Depression with anxiety - Resume home regimen as previous. 16. Osteoarthritis - Give Tylenol as needed. 17. DVT prophylaxis - Give full dose Lovenox until lower extremity Dopplers confirm there is no DVT. Total time: Approximately 55 minutes. Charges/Coding Visit Charges Inpatient E&M: 27011 Init Hosp L2 04/05/24 0552 <Electronically signed by Calderon Ojeda DO> Cosigner Signature (if applicable): CC: Dr. Calderon Ojeda DO; VJ Maloney~ Signed [facility] Work Phone: 1(239) 945-166005-07-2024 Consult note Author Cole Kelly [facility] April 04, 2024 11:58pm Note Date/Time April 04, 2024 11:58p [facility] Medical Records Department [address] [place] [address] Pharmacokinetic/Renal -Consult 04/04/24 2357 MR#: [id number] Acct: [id number] Name: JESUSITA ENGLAND Rep #:[id number] : 1970 54 From: Cole Melton od PCP: VJ Maloney Status:ADM IN Location: [place] [address] Consult Antibiotic Management Pharmacy has been consulted to manage selected antibiotic: Vancomycin Type of Intervention Type of Consult: New start Labs Labs: Sodium 135 mmol/L (136-145) L 04/04/24 20:55 Potassium 4.6 mmol/L (3.5-5.1) 04/04/24 20:55 Chloride 101 mmol/L (98-107) 04/04/24 20:55 Carbon Dioxide 29.0 mmol/L (21.0-32.0) 04/04/24 20:55 Anion Gap 5 (5-15) 04/04/24 20:55 BUN 21 mg/dL (7-18) H 04/04/24 20:55 Creatinine 1.05 mg/dL (0.55-1.02) H 04/04/24 20:55 Est GFR (MDRD) Af Amer 70 mL/min (>60) 04/04/24 20:55 Est GFR (MDRD) Non-Af 58 mL/min (>60) L 04/04/24 20:55 BUN/Creatinine Ratio 20.0 RATIO (10-20) 04/04/24 20:55 Glucose 113 mg/dL (74-106) H 04/04/24 20:55 Dosing Weight Weight used for dosin.2 kg Estimated Creatinine Clearance Estimated Creatinine Clearance: 118 Goal Trough Goal Trough: 15-20 mcg/mL Pharmacy Plan for Drug Dosing Pharmacy Plan for Drug Dosing: Pharmacy Service will continue to monitor and adjust dosing as required. 1500MG GIVEN IN ER, DOSE 1500MG Q8H AND DRAW TROUGH PRIOR TO 4TH DOSE Follow-Up Labs Follow-Up Labs: Trough: Vancomycin Date/Time Labs Ordered Labs to be done on [date and time ordered]: 04/05 @ 2100 04/04/24 6147 <Electronically signed by Cole seth> Date _ Cole Pino Signature (if applicable): Date CC: ~ Signed [facility] Work Phone: 1(727) 806-909105-07-2024 Discharge summary Author Gian Menjivarrus [facility] April 04, 2024 10:06pm Note Date/Time April 04, 2024 8:20pm [facility] Medical Records Department [address] [place] [address] Emergency Department Summary 04/04/24 MR#: [id number] Acct: [id number] Name: JESUSITA ENGLAND Rep #:[id number] : 1970 54 From: Gian Davis PCP: VJ Maloney Status:REG ER Location: ED HPI History of Present Illness Chief Complaint: Cellulitis PF[facility] Medical History Abnormal echocardiogram Anxiety Ascending aorta dilatation Asthma Depression Failure of outpatient treatment GERD without esophagitis Heel spur Hyperglycemia IBS (irritable bowel syndrome) Insomnia Osteoarthritis (arthritis due to wear and tear of joints) Home Medications acetaminophen 500 mg capsule 1,000 mg PO Q6H PRN Pain 07/11/21 [History Last Taken Unknown] aspirin 81 mg tablet,delayed release (Adult Low Dose Aspirin) 81 mg PO DAILY 07/11/21 [History Last Taken Unknown] ferrous sulfate 325 mg (65 mg iron) tablet (FeroSul) 325 mg PO DAILY@1200 #30 tabs 08/01/21 [Rx Last Taken Unknown] venlafaxine 75 mg capsule,extended release 24 hr (Effexor XR) 225 mg (3 x 75 mg)PO DAILY #90 caps 09/03/21 [Rx Last Taken Unknown] lisinopril 10 mg tablet 20 mg PO DAILY 07/24/23 [History Last Taken Unknown] omeprazole 40 mg capsule,delayed release 40 mg PO DAILY 07/24/23 [History Last Taken Unknown] nystatin 100,000 unit/gram topical powder (Nyamyc) 1 applic topical BID 30 days #60 grams 07/31/23 [Rx Last Taken Unknown] cholecalciferol (vitamin D3) 1 tab PO DAILY 04/04/24 [History Last Taken Unknown] Allergy/AdvReac Type Severity Reaction Status Date / Time adhesive tape AdvReac Unknown Other Verified 04/04/24 19:07 Family History Mother Alzheimer's dementia Surgical History H/O foot surgery History of cholecystectomy History of hip surgery Social History household members: spouse housing: house number of children: 1 current occupational status: employed 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 For lunch she has a bowl of soup and crackers which she takes to work. Sometimes has pretzels for a snack. Eats lunch at 12:30- 1 and does not get home until 7 PM and then she is starved. Her sometimes cooks and it is usually not healthy and may include pizza, hotdogs, fast food. Does not plan meals and her hisband is not supportive of healthy eating. He is a little overweight and likes to eat junk. EXAM Physical Exam Const Vital Signs: 04/04/24 19:06 Temperature 100.2 F H Temperature Source Oral Pulse Rate 112 H Respiratory Rate 20 H Blood Pressure 129/69 H Blood Pressure Mean 89 Pulse Ox 95 Oxygen Delivery Method Room Air MDM MDM MDM Narrative Medical decision making narrative: HISTORY OF PRESENT ILLNESS: 54-year female presents concern for bilateral cellulitis. Patient denies active cancer, being bedridden for greater than 3 days, denies unilateral leg swelling, denies any varicose veins, denies any calf tenderness, denies tenderness along deep venous system. Denies major surgery within 12 weeks, recent paralysis, previous DVT. REVIEW OF SYSTEMS: Pertinent positives: Cellulitis Pertinent negatives: Vomiting, chest pain PHYSICAL EXAM: Nursing triage notes reviewed, Vital signs reviewed Constitutional: please see mdm HENT: MMM Eyes: Pupils equal round and reactive to light, Extraocular muscles intact Neck: No stridor, no JVD, full neck ROM Lungs: Clear to auscultation, No wheezing or rales. No increased work of breathing, no conversational dyspnea, no accessory muscle use, no nasal flaring. No respiratory distress noted Heart: Regular rate and rhythm, No murmurs, No rubs and No gallops, 2+ distal pulses (radial, femoral, posterior tibial) in all extremities Abdomen: Soft, there is no tenderness, rigidity, rebound or guarding, no obviousperitoneal signs, no palpable pulsatile abdominal masses, no auscultated abdominal bruit : No CVAT Extremities: No edema Neuro: No focal neurological deficits, cranial nerves II through XII intact, 5/5strength in all extremities. Intact sensation to light touch in all extremities,2+ reflexes bilateral patella tendons. Normal gait. No ataxia. Skin: MEDICAL DECISION MAKING: Chief Complaint: Cellulitis External records reviewed: Admitted in July 2023 for bilateral lower extremity cellulitis Factors affecting care: Obesity IBS, cellulitis, Social determinants of health: none History obtained from others: Patient's family Consults: Internal medicine ( Dr. Ojeda) MDM Narrative: Patient was initially tachycardic, febrile tachypneic. Exam consistent with cellulitis. No signs of necrotizing fasciitis or abscess. I considered the following differential diagnosis: Cellulitis, necrotizing fasciitis, abscess ALL IMAGES (IF OBTAINED) HAVE BEEN PERSONALLY REVIEWED AND INTERPRETED BY MYSELF. CBC with leukocytosis suggestive of systemic summation, no anemia or thrombocytopenia BMP with mild hyponatremia, otherwise no MIRIAM or signs of metabolic acidosis or endorgan hypoperfusion Lactate is wnl indicating no end-organ hypoperfusion and/or hypoxia. LFTs show no evidence of hepatobiliary pathology. The synthesis of the patient's history, exam, labs suggest bilateral cellulitis. Given bilateral nature and history of poor outpatient cure rate patient was admitted under medicine for IV antibiotics patient given a dose of IV vancomycinhere. Blood cultures were drawn given multiple initial SIRS criteria prior to antibiotics. The patient and/or family, caregivers express understanding. The patient and/orfamily, caregivers agrees with the plan. Shared decision making: I will have a discussion with the patient and or visitors regarding risk/benefits of further testing or admission. They will be made aware of of the risk/benefits inherent in this decision they will be given the opportunity to voice understanding. Total critical care time today provided was at least 0 [] minutes. This excludes separately billable procedures. Critical care time (if documented) is secondary to the patient having high probability of clinically significant/life threatening deterioration in the patient's condition which required my urgent intervention. Impression: 1. Bilateral cellulitis 2. Leukocytosis 3. Tachycardia (resolved) Dispo: Admit to medical floor This note was generated with [employer] dictation software. It may contain incorrect words, spelling, and punctuation that were not noted in review of the chart prior to signing. Discharge Plan Triage Chief Complaint: Cellulitis ED Provider: Gian Villanueva Dx/Rx/DC Orders Prescriptions: No Action acetaminophen 500 mg capsule 1,000 mg PO Q6H PRN (Reason: Pain) aspirin [Adult Low Dose Aspirin] 81 mg tablet,delayed release (DR/EC) 81 mg PO DAILY ferrous sulfate [FeroSul] 325 mg (65 mg iron) Tablet 325 mg PO DAILY@1200 Qty: 30 0RF venlafaxine [Effexor XR] 75 mg capsule,extended release 24hr 225 mg PO DAILY Qty: 90 0RF Rx Instructions: take 3 capsules every AM omeprazole 40 mg capsule,delayed release(DR/EC) 40 mg PO DAILY Patient Comments: TAKE 1 CAPSULE BY MOUTH ONCE DAILY lisinopril 10 mg tablet 20 mg PO DAILY Patient Comments: TAKE 1 TABLET BY MOUTH ONCE DAILY nystatin [Nyamyc] 100,000 unit/gram Powder 1 applic topical BID 30 Days Qty: 60 0RF Protocol: *Topical Application Instructions APPLICATION INSTRUCTIONS: apply to skin folds, particularly BLE cholecalciferol (vitamin D3) 1 tab PO DAILY Primary Care Provider: Alondra Crews Referrals: Alondra Crews PA [Primary Care Provider] - What to do if you have Problems For any increased pain, shortness of breath, bleeding, nausea or vomiting, chestpain, or any unexpected problems, contact your Primary Care Provider. Call [facility] ([phone]) or report to the closest Emergency Room. Call 911 if necessary. 04/04/242205 <Electronically signed by Gian Villanueva DO> Cosigner Signature (if applicable): CC: VJ Maloney ~ Signed [facility] Work Phone: 1(757) 835-296705-06-2024 Discharge summary Author Gian Villanueva [facility] April 04, 2024 10:06pm Note Date/Time April 04, 2024 8:20pm [facility] Medical Records Department [address] [place] [address] Emergency Department Summary 04/04/24 MR#: [id number] Acct: [id number] Name: JESUSITA ENGLAND Rep #:[id number] : 1970 54 From: Gian Davis PCP: VJ Maloney Status:REG ER Location: ED HPI History of Present Illness Chief Complaint: Cellulitis [facility] Medical History Abnormal echocardiogram Anxiety Ascending aorta dilatation Asthma Depression Failure of outpatient treatment GERD without esophagitis Heel spur Hyperglycemia IBS (irritable bowel syndrome) Insomnia Osteoarthritis (arthritis due to wear and tear of joints) Home Medications acetaminophen 500 mg capsule 1,000 mg PO Q6H PRN Pain 07/11/21 [History Last Taken Unknown] aspirin 81 mg tablet,delayed release (Adult Low Dose Aspirin) 81 mg PO DAILY 07/11/21 [History Last Taken Unknown] ferrous sulfate 325 mg (65 mg iron) tablet (FeroSul) 325 mg PO DAILY@1200 #30 tabs 08/01/21 [Rx Last Taken Unknown] venlafaxine 75 mg capsule,extended release 24 hr (Effexor XR) 225 mg (3 x 75 mg)PO DAILY #90 caps 09/03/21 [Rx Last Taken Unknown] lisinopril 10 mg tablet 20 mg PO DAILY 07/24/23 [History Last Taken Unknown] omeprazole 40 mg capsule,delayed release 40 mg PO DAILY 07/24/23 [History Last Taken Unknown] nystatin 100,000 unit/gram topical powder (Nyamyc) 1 applic topical BID 30 days #60 grams 07/31/23 [Rx Last Taken Unknown] cholecalciferol (vitamin D3) 1 tab PO DAILY 04/04/24 [History Last Taken Unknown] Allergy/AdvReac Type Severity Reaction Status Date / Time adhesive tape AdvReac Unknown Other Verified 04/04/24 19:07 Family History Mother Alzheimer's dementia Surgical History H/O foot surgery History of cholecystectomy History of hip surgery Social History household members: spouse housing: house number of children: 1 current occupational status: employed 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 For lunch she has a bowl of soup and crackers which she takes to work. Sometimes has pretzels for a snack. Eats lunch at 12:30- 1 and does not get home until 7 PM and then she is starved. Her sometimes cooks and it is usually not healthy and may include pizza, hotdogs, fast food. Does not plan meals and her hisband is not supportive of healthy eating. He is a little overweight and likes to eat junk. EXAM Physical Exam Const Vital Signs: 04/04/24 19:06 Temperature 100.2 F H Temperature Source Oral Pulse Rate 112 H Respiratory Rate 20 H Blood Pressure 129/69 H Blood Pressure Mean 89 Pulse Ox 95 Oxygen Delivery Method Room Air MDM [facility] MDM Narrative Medical decision making narrative: HISTORY OF PRESENT ILLNESS: 54-year female presents concern for bilateral cellulitis. Patient denies active cancer, being bedridden for greater than 3 days, denies unilateral leg swelling, denies any varicose veins, denies any calf tenderness, denies tenderness along deep venous system. Denies major surgery within 12 weeks, recent paralysis, previous DVT. REVIEW OF SYSTEMS: Pertinent positives: Cellulitis Pertinent negatives: Vomiting, chest pain PHYSICAL EXAM: Nursing triage notes reviewed, Vital signs reviewed Constitutional: please see mdm HENT: MMM Eyes: Pupils equal round and reactive to light, Extraocular muscles intact Neck: No stridor, no JVD, full neck ROM Lungs: Clear to auscultation, No wheezing or rales. No increased work of breathing, no conversational dyspnea, no accessory muscle use, no nasal flaring. No respiratory distress noted Heart: Regular rate and rhythm, No murmurs, No rubs and No gallops, 2+ distal pulses (radial, femoral, posterior tibial) in all extremities Abdomen: Soft, there is no tenderness, rigidity, rebound or guarding, no obviousperitoneal signs, no palpable pulsatile abdominal masses, no auscultated abdominal bruit : No CVAT Extremities: No edema Neuro: No focal neurological deficits, cranial nerves II through XII intact, 5/5strength in all extremities. Intact sensation to light touch in all extremities,2+ reflexes bilateral patella tendons. Normal gait. No ataxia. Skin: MEDICAL DECISION MAKING: Chief Complaint: Cellulitis External records reviewed: Admitted in July 2023 for bilateral lower extremity cellulitis Factors affecting care: Obesity IBS, cellulitis, Social determinants of health: none History obtained from others: Patient's family Consults: Internal medicine ( Dr. Ojeda) MDM Narrative: Patient was initially tachycardic, febrile tachypneic. Exam consistent with cellulitis. No signs of necrotizing fasciitis or abscess. I considered the following differential diagnosis: Cellulitis, necrotizing fasciitis, abscess ALL IMAGES (IF OBTAINED) HAVE BEEN PERSONALLY REVIEWED AND INTERPRETED BY MYSELF. CBC with leukocytosis suggestive of systemic summation, no anemia or thrombocytopenia BMP with mild hyponatremia, otherwise no MIRIAM or signs of metabolic acidosis or endorgan hypoperfusion Lactate is wnl indicating no end-organ hypoperfusion and/or hypoxia. LFTs show no evidence of hepatobiliary pathology. The synthesis of the patient's history, exam, labs suggest bilateral cellulitis. Given bilateral nature and history of poor outpatient cure rate patient was admitted under medicine for IV antibiotics patient given a dose of IV vancomycinhere. Blood cultures were drawn given multiple initial SIRS criteria prior to antibiotics. The patient and/or family, caregivers express understanding. The patient and/orfamily, caregivers agrees with the plan. Shared decision making: I will have a discussion with the patient and or visitors regarding risk/benefits of further testing or admission. They will be made aware of of the risk/benefits inherent in this decision they will be given the opportunity to voice understanding. Total critical care time today provided was at least 0 [] minutes. This excludes separately billable procedures. Critical care time (if documented) is secondary to the patient having high probability of clinically significant/life threatening deterioration in the patient's condition which required my urgent intervention. Impression: 1. Bilateral cellulitis 2. Leukocytosis 3. Tachycardia (resolved) Dispo: Admit to medical floor This note was generated with [employer] dictation software. It may contain incorrect words, spelling, and punctuation that were not noted in review of the chart prior to signing. Discharge Plan Triage Chief Complaint: Cellulitis ED Provider: Gian Villanueva Dx/Rx/DC Orders Prescriptions: No Action acetaminophen 500 mg capsule 1,000 mg PO Q6H PRN (Reason: Pain) aspirin [Adult Low Dose Aspirin] 81 mg tablet,delayed release (DR/EC) 81 mg PO DAILY ferrous sulfate [FeroSul] 325 mg (65 mg iron) Tablet 325 mg PO DAILY@1200 Qty: 30 0RF venlafaxine [Effexor XR] 75 mg capsule,extended release 24hr 225 mg PO DAILY Qty: 90 0RF Rx Instructions: take 3 capsules every AM omeprazole 40 mg capsule,delayed release(DR/EC) 40 mg PO DAILY Patient Comments: TAKE 1 CAPSULE BY MOUTH ONCE DAILY lisinopril 10 mg tablet 20 mg PO DAILY Patient Comments: TAKE 1 TABLET BY MOUTH ONCE DAILY nystatin [Nyamyc] 100,000 unit/gram Powder 1 applic topical BID 30 Days Qty: 60 0RF Protocol: *Topical Application Instructions APPLICATION INSTRUCTIONS: apply to skin folds, particularly BLE cholecalciferol (vitamin D3) 1 tab PO DAILY Primary Care Provider: Alondra Crews Referrals: Alondra Crews PA [Primary Care Provider] - What to do if you have Problems For any increased pain, shortness of breath, bleeding, nausea or vomiting, chestpain, or any unexpected problems, contact your Primary Care Provider. Call [facility] ([phone]) or report to the closest Emergency Room. Call 911 if necessary. 04/04/242205 <Electronically signed by Gian Villanueva DO> Cosigner Signature (if applicable): CC: VJ Maloney ~ Signed [facility] Work Phone: 1(938) 838-189510-06-2023 History of Present illness Narrative* Helder Tavera MD - 09/04/2023 10:30 AM EDT Subjective Patient ID: Jesusita England is a 53 y.o. female. Cellulitis Jesusita is a 53 y.o. female here for evaluation of cellulitis and recurrent for approximately 4-6 months R>L REED . Venous access: none. Current length of antibiotic treatment duration: approximately2 weeks. Medication related side effects: none. who is accompanying Jesusita notes the appetite has been fair. Energy level has been fair. Jesusita has not had weight loss. Patient has been taking po antibiotics on and off since 01/2023 for RLE>LLE cellulitis episodes from her PCP, and was hospitalized twice in June and July for flares. Both times with fever, simple sepsis and responded to IV antibiotics, but after po tail, relapsed. This time around ID( Dr. Shannon) recommended amoxicillin suppression for up to 30 days. Her Primary Care also prescribed Hibiclens wash. She is here for second opinion. Not diabetic, no ktrauma to legs in the past. Remote heel spur surgery. In Bariatric clinic program[facility]- has lost 30# intentionally already. Additional Complaints: Chronic lymphedema- known to [facility] clinic locally, but has not been seen this year, already using compression device, but difficulty tolerating it during episodes of cellulitis. Review of Systems Constitutional: Positive for fever (resolved from last hospitalization). Negative for chills. Respiratory: Negative for shortness of breath. Cardiovascular: Positive for leg swelling (chornic-improving on po antibiotic). Negative for chest pain. Gastrointestinal: Negative. Genitourinary: Negative. Neurological: Negative for weakness and headaches. Hematological: Does not bruise/bleed easily. Psychiatric/Behavioral: Negative. Objective Physical Exam Vitals reviewed. Constitutional: General: She is not in acute distress. Appearance: Normal appearance. She is obese. She is not ill-appearing or toxic-appearing. Pulmonary: Effort: Pulmonary effort is normal. Musculoskeletal: General: Swelling (to both legs) present. Normal range of motion. Skin: Findings: Erythema (chornic appearing from previous infeciton to both legs, skin folds, minimal intertrigo candidiasis, no obvious skin breakes; no tinea pedis) present. Neurological: General: No focal deficit present. Mental Status: She is alert and oriented to person, place, and time. Psychiatric: Mood and Affect: Mood normal. Thought Content: Thought content normal. Laboratory: Per Media tab referral notes Assessment/Plan Cellulitis and recurrent, with underlying obnesity, lymphedema as risk factors : resolved. For now agree with amoxicillin.Also see if Hibiclens can help prevent recurrence. Will give additional Rx for on demand next time she has a flare. Continue topical antifungal powder for skin folds. Encouraged her to use lymphedema boot again, and to follow up with the local clinic for additional recommendations. Follow up if symptoms worsen or fail to improve. documented in this [facility]09-22-2023 Consult note Author Brandt Pierce [facility] August 21, 2023 10:48am Note Date/Time August 21, 2023 10:48am [facility] Medical Records Department [address] [place] [address] Counseling Note - Pharmacy 08/21/23 1047 MR#: [id number] Acct: [id number] Name: JESUSITA ENGLAND Rep #:[id number] : 1970 53 From: Brandt Pierce PCP: VJ Maloney Status:ADM IN Y Location: [facility] [id number] Pharmacy [facility] has performed discharge medication reconciliation and counseling for this patient. The patient's discharge medication list was reviewed for discrepancies and discrepancies were resolved. The patient was counseled on the following discharge medications and changes in medications for homegoing were reviewed. The Reason for Use, instructions for use, and potential side effects were reviewed for all new medications. The patient's questions regarding all of their medications were answered. 1. Cefdinir 300 mg PO BID x 10 days 2. Amoxicillin 500 mg PO daily starting after completion of cefdinir The patient was able to verbally demonstrate an understanding of their dischargemedications. Medications at Discharge Home Medications acetaminophen 500 mg capsule 1,000 mg PO Q6H PRN Pain 07/11/21 aspirin 81 mg tablet,delayed release (Adult Low Dose Aspirin) 81 mg PO DAILY 07/11/21 ascorbic acid (vitamin C) 500 mg tablet 500 mg PO 1200 #0 tabs 08/01/21 ferrous sulfate 325 mg (65 mg iron) tablet (FeroSul) 325 mg PO DAILY@1200 #30 tabs 08/01/21 venlafaxine 75 mg capsule,extended release 24 hr (Effexor XR) 225 mg (3 x 75 mg)PO DAILY #90 caps 09/03/21 Lactobacillus acidophilus (Acidophilus capsule) 10 mg PO DAILY 07/24/23 lisinopril 10 mg tablet 10 mg PO DAILY 07/24/23 omeprazole 40 mg capsule,delayed release 40 mg PO DAILY 07/24/23 nystatin 100,000 unit/gram topical powder (Nyamyc) 1 applic topical BID 30 days #60 grams 07/31/23 amoxicillin 500 mg capsule 500 mg PO DAILY #30 caps 08/21/23 cefdinir 300 mg capsule 300 mg PO Q12H #20 caps 08/21/23 08/21/23 1048 <Electronically signed by Brandt bledsoe> Date _ Brandt Pierce Cosigner Signature (if applicable): Date CC: ~ Signed [facility] Work Phone: 1(809) 558-307509-22-2023 Discharge summary [facility] 21, 2023 8:32am Note Date/Time August 21, 2023 8:29am [facility] Medical Records Department [address] [place] [address] Discharge Summary 08/21/23 0827 MR#: [id number] Acct: [id number] Name: JESUSITA ENGLAND Rep #:[id number] : 1970 53 From: Calderon Ware MD PCP: VJ Maloney Status:ADM IN [facility] Prov[facility] Date of Admission: 08/18/23 Date of Discharge: 08/21/23 Primary Care Physician: VJ Maloney Consultations 08/18/23 10:43 Consult: Infectious Disease Routine Consulting Provider: Wander Garcia Reason for Consult: Recurrent cellulitis EMERGENT Consult: No Notified: Yes Date Notified: 08/18/23 Time Notified: 10:43 Method of Notification: Text Reason For Visit: BILATERAL LOWER EXTREMITY CELLULITIS Diagnosis Discharge Diagnosis (1) Cellulitis: Status: Acute Code(s): L03.90 - Cellulitis, unspecified Qualifiers: Site of cellulitis: extremity Site of cellulitis of extremity: lower extremity Laterality: right Qualified Code(s): L03.115 - Cellulitis of right lower limb Plan Patient is a 53-year-old lady with recent hospitalization for bilateral lower extremity cellulitis for which she was managed with Zosyn and vancomycin de- escalated to Rocephin discharged on Omnicef which she finished a week prior to her readmission. Presented to the ED with recurrent symptoms 1. Bilateral lower extremity cellulitis ? Admitted to monitored bed patient started on Rocephin. Consult placed to infectious disease due to the recurrent nature outpatient presentation ? 08/19/2023 patient seen still has significant area of induration with warmth aswell as tenderness involving the right cough. Remains on broad-spectrum antibiotic therapy. Consultation was placed to ID ? 08/20/2023 patient was seen in consultation by Dr. Garcia with infectious disease he is noted recommendations reviewed patient responded to treatment ? Patient was seen in consultation by Dr. Garcia recommended for patient to be discharged home on cefdinir as well as suppressant long-term therapy with amoxicillin 2. Obstructive sleep apnea ? Consistent use of CPAP encouraged 3. Obesity hypoventilation syndrome ? Managed by pulmonary medicine as outpatient 4. GERD ? Patient is on PPI currently 5. Hypertension - Blood pressure controlled, home medications continued with dose adjustment as needed 6. Depression ? Patient is on venlafaxine home dose continued 7. DVT prophylaxis ? SC Lovenox Time spent in the patient's overall evaluation,decision-making process, review of diagnostic data, adjustment of management, discussion with other providers, nursing nursing and ancillary staff involved in patient's care documentation, 35minutes Medications at Discharge Home Medications acetaminophen 500 mg capsule 1,000 mg PO Q6H PRN Pain 07/11/21 aspirin 81 mg tablet,delayed release (Adult Low Dose Aspirin) 81 mg PO DAILY 07/11/21 ascorbic acid (vitamin C) 500 mg tablet 500 mg PO 1200 #0 tabs 08/01/21 ferrous sulfate 325 mg (65 mg iron) tablet (FeroSul) 325 mg PO DAILY@1200 #30 tabs 08/01/21 venlafaxine 75 mg capsule,extended release 24 hr (Effexor XR) 225 mg (3 x 75 mg)PO DAILY #90 caps 09/03/21 Lactobacillus acidophilus (Acidophilus capsule) 10 mg PO DAILY 07/24/23 lisinopril 10 mg tablet 10 mg PO DAILY 07/24/23 omeprazole 40 mg capsule,delayed release 40 mg PO DAILY 07/24/23 nystatin 100,000 unit/gram topical powder (Nyamyc) 1 applic topical BID 30 days #60 grams 07/31/23 amoxicillin 500 mg capsule 500 mg PO DAILY #30 caps 08/21/23 cefdinir 300 mg capsule 300 mg PO Q12H #20 caps 08/21/23 Physical Exam Narrative GENERAL: cooperative HEENT: Atraumatic; normocephalic EYES; Anicteric, Normal Conjunctiva NECK; supple, normal thyroid, RESPIRATORY: Diminished to auscultation CARDIOVASCULAR: Regular S1 S2, GI: soft, normoactive bowel sounds, : No Renal angle tenderness; EXTREMITIES: An area of erythema involving the medial aspect of the right lower extremity MUSCULOSKELETAL: no muscle wasting NEURO: Awake; no lateralizing signs. SKIN: As described above PSYCH; Flat affect Weight / BMI Weight Weight: 211.3 kg Body Mass Index (BMI) 79.9 ABG / Lab / Microbiology Data 08/21/23 07:24 08/21/23 07:24 Laboratory: Laboratory Results - last 24 hr 08/21/23 07:24: WBC 6.3, RBC 3.88 L, Hgb 10.6 L, Hct 33.8 L, MCV 87.1, MCH 27.3,MCHC 31.4 L, RDW Std Deviation 50.3 H, RDW Coeff of Rani 15.6 H, Plt Count 165, MPV 9.8, Immature Gran % (Auto) 1.400 H, Neut % (Auto) 69.7, Lymph % (Auto) 18.6L, [place] % (Auto) 9.9, Eos % (Auto) 0.2, Baso % (Auto) 0.2, Absolute Neuts (auto)4.4, Absolute Lymphs (auto) 1.17, Nucleated RBC % 0, Sodium 138, Potassium 3.9, Chloride 108 H, Carbon Dioxide 27.0, Anion Gap 3 L, BUN 11, Creatinine 0.69, Estim Creat Clear Calc 79.55, Est GFR (MDRD) Af Amer 113, Est GFR (MDRD) Non-Af 94, BUN/Creatinine Ratio 15.9, Glucose 108 H, Calcium 8.6 Microbiology: Microbiology 08/17/23 23:00 Blood Culture (Wb) - Anticubital Left Blood Culture - Preliminary No growth in 48 hours. 08/17/23 23:00 Blood Culture (Wb) - Anticubital Right Blood Culture - Preliminary No growth in 48 hours. D/C Instructions Discharge Diet: No restrictions Discharge Activity: Return to Normal Activity Call your doctor if you observe: Fever of 101 or Higher, Shortness of breath, Fainting spells and Chest pain Meaningful Use Info Meaningful Use Diagnoses (Choose all that apply): None applicable Discharge Plan Admission Admit Date/Time: 08/18/23 00:50 Attending Provider: Calderon Ware Primary Care Provider: Alondra Crews Consulting Providers: Arthur Thompson; Wander Garcia Discharge Orders/Prescriptions Prescriptions: New cefdinir 300 mg capsule 300 mg PO Q12H Qty: 20 0RF amoxicillin 500 mg capsule 500 mg PO DAILY Qty: 30 0RF Rx Instructions: Patient to start after completing cefdinir Continued acetaminophen 500 mg capsule 1,000 mg PO Q6H PRN (Reason: Pain) aspirin [Adult Low Dose Aspirin] 81 mg tablet,delayed release (DR/EC) 81 mg PO DAILY ascorbic acid (vitamin C) 500 mg Tablet 500 mg PO 1200 Qty: 0 0RF Rx Instructions: take this medication with the ferrous sulfate with food ferrous sulfate [FeroSul] 325 mg (65 mg iron) Tablet 325 mg PO DAILY@1200 Qty: 30 0RF venlafaxine [Effexor XR] 75 mg capsule,extended release 24hr 225 mg PO DAILY Qty: 90 0RF Rx Instructions: take 3 capsules every AM omeprazole 40 mg capsule,delayed release(DR/EC) 40 mg PO DAILY Patient Comments: TAKE 1 CAPSULE BY MOUTH ONCE DAILY lisinopril 10 mg tablet 10 mg PO DAILY Patient Comments: TAKE 1 TABLET BY MOUTH ONCE DAILY Acidophilus Capsule 10 mg PO DAILY nystatin [Nyamyc] 100,000 unit/gram Powder 1 applic topical BID 30 Days Qty: 60 0RF Protocol: *Topical Application Instructions APPLICATION INSTRUCTIONS: apply to skin folds, particularly BLE Referrals / Follow Up: Wander Garcia MD [Med Staff - Active Staff] - Within 2 Weeks Alondra Crews PA [Primary Care Provider] - Within 2 Weeks Disposition Disposition (needs filled in before D/C Order can be placed): Home, Self Care Charges/Coding Visit Charges Inpatient E&M: 80595 Disch Hosp >30min 08/21/23 0832 <Electronically signed by Calderon Ware MD> Cosigner Signature (if applicable): CC: Dr. Calderon Ware MD; VJ Maloney~ Signed [facility] Work Phone: 1(308) 666-685409-22-2023 [facility]09-21-2023 Progress note Author Wander Garcia [facility] August 20, 2023 10:50am Note Date/Time August 20, 2023 10:51am [facility] Medical Records Department [address] [place] [address] Progress Note - Infect Disease 08/20/23 1050 MR#: [id number] Acct: [id number] Name: JESUSITA ENGLAND RAMONA Rep #:[id number] : 1970 53 From: Wander bledsoe MD PCP: VJ Maloney Status:ADM IN Location: [facility] [id number] Physical Exam Narrative Feeling a little better, no fever, leg sore Const alert and no apparent distress Resp normal air movement and clear to auscultation bilaterally Cardio regular rate and regular rhythm GI soft to palpation, non-tender and non-distended Skin Skin Narrative: RLE a little less red ID ID: Route of nutrition/ use of supplements: [] Nutritional Intake: [] IV Site: [] Galeano Catheter: [] Assessment & Plan Assessment/Plan (1) Cellulitis: QUALIFIERS: Site of cellulitis: extremity Site of cellulitis of extremity: lower extremity Laterality: right Qualified Code(s): L03.115 - Cellulitis of right lower limb PLAN: sepsis due to RLE cellulitis - improving on ceftriaxone, will continue. Plan on 10 days omnicef at discharge 300mg bid then senior care suppressive amox. will follow (2) Sepsis: 08/20/23 1050 <Electronically signed by Wander Garcia MD> Cosigner Signature (if applicable): CC: ~ Signed [facility] Work Phone: 1(675) 784-735509-21-2023 Progress note Author Calderon Ware [facility] August 20, 2023 10:02am Note Date/Time August 20, 2023 7:30am [facility] Medical Records Department [address] [place] [address] Progress Note - Hospitalist 08/20/23 0730 MR#: [id number] Acct: [id number] Name: JESUSITA ENGLAND Rep #:[id number] : 1970 53 From: Calderon Ware MD PCP: VJ Maloney Status:ADM IN Location: [facility] [id number] Reason for Visit Reason for Visit: Diagnoses Sepsis, unspecified organism (08/18/23) Obesity, unspecified (08/18/23) Lymphedema, not elsewhere classified (08/18/23) Irritable bowel syndrome without diarrhea (08/18/23) Cellulitis of right lower limb (08/18/23) Cellulitis, unspecified (08/18/23) Subjective Subjective Seen still has significant redness involving the right calf Objective Data Objective Data Vital Signs: Vital Signs Temp Pulse Resp BP Pulse Ox O2 Del Method 98.2 F 77 18 137/95 H 99 CPAP 08/20/23 02:16 08/20/23 02:16 08/20/23 02:16 08/20/23 02:16 08/20/23 02:16 08/20/23 02:16 Oxygen Delivery Method CPAP Weight: 211.3 kg Body Mass Index (BMI) 79.9 Intake & Output: Intake and Output for Last 24 Hours 08/18/23 08/19/23 08/20/23 23:59 23:59 23:59 Intake Total 4825.00 / 6075.00 5155.0 / 5155.0 1250 / 1250 Balance 4825.00 / 6075.00 5155.0 / 5155.0 1250 / 1250 Lab / Micro Data 08/20/23 06:20 08/20/23 06:20 Labs: Laboratory Results - last 24 hr 08/20/23 06:20: WBC 6.5, RBC 3.81 L, Hgb 10.4 L, Hct 33.3 L, MCV 87.4, MCH 27.3,MCHC 31.2 L, RDW Std Deviation 49.9 H, RDW Coeff of Rani 15.6 H, Plt Count 155, MPV 9.6, Immature Gran % (Auto) 0.600, Neut % (Auto) 76.4 H, Lymph % (Auto) 14.3L, [place] % (Auto) 8.5, Eos % (Auto) 0.0, Baso % (Auto) 0.2, Absolute Neuts (auto)5.0, Absolute Lymphs (auto) 0.93, Nucleated RBC % 0, Sodium 138, Potassium 3.8, Chloride 110 H, Carbon Dioxide 25.0, Anion Gap 3 L, BUN 12, Creatinine 0.69, Estim Creat Clear Calc 79.55, Est GFR (MDRD) Af Amer 114, Est GFR (MDRD) Non-Af 94, BUN/Creatinine Ratio 17.4, Glucose 112 H, Calcium 8.5 Micro: Microbiology 08/17/23 23:00 Blood Culture (Wb) - Anticubital Left Blood Culture - Preliminary No growth in 48 hours. 08/17/23 23:00 Blood Culture (Wb) - Anticubital Right Blood Culture - Preliminary No growth in 48 hours. Physical Exam Narrative GENERAL: cooperative HEENT: Atraumatic; normocephalic EYES; Anicteric, Normal Conjunctiva NECK; supple, normal thyroid, RESPIRATORY: Diminished to auscultation CARDIOVASCULAR: Regular S1 S2, GI: soft, normoactive bowel sounds, : No Renal angle tenderness; EXTREMITIES: An area of erythema involving the medial aspect of the right lower extremity MUSCULOSKELETAL: no muscle wasting NEURO: Awake; no lateralizing signs. SKIN: As described above PSYCH; Flat affect Assessment & Plan Assessment/Plan (1) Cellulitis: QUALIFIERS: Laterality: right Site of cellulitis: extremity Siteof cellulitis of extremity: lower extremity Qualified Code(s): L03.115 - Cellulitis of right lower limb PLAN: Plan Patient is a 53-year-old lady with recent hospitalization for bilateral lower extremity cellulitis for which she was managed with Zosyn and vancomycin de- escalated to Rocephin discharged on Omnicef which she finished a week prior to her readmission. Presented to the ED with recurrent symptoms 1. Bilateral lower extremity cellulitis ? Admitted to monitored bed patient started on Rocephin. Consult placed to infectious disease due to the recurrent nature outpatient presentation ? 08/19/2023 patient seen still has significant area of induration with warmth aswell as tenderness involving the right cough. Remains on broad-spectrum antibiotic therapy. Consultation was placed to ID ? 08/20/2023 patient was seen in consultation by Dr. Garcia with infectious disease he is noted recommendations reviewed patient responded to treatment 2. Obstructive sleep apnea ? Consistent use of CPAP encouraged 3. Obesity hypoventilation syndrome ? Managed by pulmonary medicine as outpatient 4. GERD ? Patient is on PPI currently 5. Hypertension - Blood pressure controlled, home medications continued with dose adjustment as needed 6. Depression ? Patient is on venlafaxine home dose continued 7. DVT prophylaxis ? SC Lovenox Time spent in the patient's overall evaluation,decision-making process, review of diagnostic data, adjustment of management, discussion with other providers, nursing nursing and ancillary staff involved in patient's care documentation, 35minutes Charges/Coding Visit Charges Inpatient E&M: 50601 Subs Hosp L2 08/20/23 1002 <Electronically signed by Calderon Ware MD> Cosigner Signature (if applicable): CC: ~ Signed [facility] Work Phone: 1(375) 422-125109-20-2023 Consult note Author Wander Garcia [facility] August 19, 2023 2:08pm Note Date/Time August 19, 2023 2:06pm [facility] Medical Records Department [address] [place] [address] Consultation - Infectious Dx 08/19/23 1404 MR#: [id number] Acct: [id number] Name: JESUSITA ENGLAND Rep #:[id number] : 1970 53 From: Wander bledsoe MD PCP: VJ Maloney Status:ADM IN Location: [place] [address]-1 Assessment & Plan Assessment/Plan (1) Cellulitis: QUALIFIERS: Site of cellulitis: extremity Site of cellulitis of extremity: lower extremity Laterality: right Qualified Code(s): L03.115 - Cellulitis of right lower limb PLAN: sepsis due to RLE cellulitis - improving on ceftriaxone, will continue Thank you, will follow (2) Sepsis: HPI Consult Data Date of Consult: 08/19/23 HPI Narrative Reason for Consultation: cellulitis HPI Narrative: JESUSITA ENGLAND, is a 53 F with obesity, recurrent cellulitis, recently completed omnicef about 10 days after hospital admit. Sx started again 08/14/23 in RLE withincreased redness, pain, induration and associated fever, fatigue, weakness, nausea. Admitted here on ceftriaxone. Pain is improved, redness receding. Full ROS performed and neg except as noted above. [facility] Medical History Abnormal echocardiogram Anxiety Ascending aorta dilatation Asthma Depression Failure of outpatient treatment GERD without esophagitis Heel spur Hyperglycemia IBS (irritable bowel syndrome) Insomnia Osteoarthritis (arthritis due to wear and tear of joints) Home Medications acetaminophen 500 mg capsule 1,000 mg PO Q6H PRN Pain 07/11/21 [History Last Taken Unknown] aspirin 81 mg tablet,delayed release (Adult Low Dose Aspirin) 81 mg PO DAILY 07/11/21 [History Last Taken Unknown] ascorbic acid (vitamin C) 500 mg tablet 500 mg PO 1200 #0 tabs 08/01/21 [Rx Last Taken Unknown] ferrous sulfate 325 mg (65 mg iron) tablet (FeroSul) 325 mg PO DAILY@1200 #30 tabs 08/01/21 [Rx Last Taken Unknown] venlafaxine 75 mg capsule,extended release 24 hr (Effexor XR) 225 mg (3 x 75 mg)PO DAILY #90 caps 09/03/21 [Rx Last Taken Unknown] Lactobacillus acidophilus (Acidophilus capsule) 10 mg PO DAILY 07/24/23 [History Last Taken Unknown] lisinopril 10 mg tablet 10 mg PO DAILY 07/24/23 [History Last Taken Unknown] omeprazole 40 mg capsule,delayed release 40 mg PO DAILY 07/24/23 [History Last Taken Unknown] nystatin 100,000 unit/gram topical powder (Nyamyc) 1 applic topical BID 30 days #60 grams 07/31/23 [Rx Last Taken Unknown] Allergy/AdvReac Type Severity Reaction Status Date / Time adhesive tape AdvReac Unknown Other Verified 08/17/23 22:24 Family History Mother Alzheimer's dementia Surgical History H/O foot surgery History of cholecystectomy History of hip surgery Social History household members: spouse housing: house number of children: 1 current occupational status: employed 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 For lunch she has a bowl of soup and crackers which she takes to work. Sometimes has pretzels for a snack. Eats lunch at 12:30- 1 and does not get home until 7 PM and then she is starved. Her sometimes cooks and it is usually not healthy and may include pizza, hotdogs, fast food. Does not plan meals and her hisband is not supportive of healthy eating. He is a little overweight and likes to eat junk. Physical Exam Const alert, oriented x3 and no apparent distress General Appearance: cooperative HEENT normocephalic and head/scalp atraumatic Eyes PERRL and EOMs intact bilaterally Neck supple and No nodes Resp normal air movement and clear to auscultation bilaterally Cardio regular rate and regular rhythm GI soft to palpation, non-tender and non-distended Extremity General Extremity: edema Skin Skin Narrative: R leg redness, warmth, mild tendernes and induration, no drainage Neuro CN's II-XII intact bilaterally Lab / Micro Data Attestation: I reviewed the patient's lab results. 08/19/23 06:15 08/19/23 06:15 Labs: Laboratory Results - last 24 hr 08/19/23 06:15: WBC 6.8, RBC 3.82 L, Hgb 10.4 L, Hct 33.6 L, MCV 88.0, MCH 27.2,MCHC 31.0 L, RDW Std Deviation 51.7 H, RDW Coeff of Rani 15.9 H, Plt Count 143 L,MPV 9.7, Immature Gran % (Auto) 1.000 H, Neut % (Auto) 79.4 H, Lymph % (Auto) 10.2 L, [place] % (Auto) 9.2, Eos % (Auto) 0.1, Baso % (Auto) 0.1, Absolute Neuts (auto) 5.4, Absolute Lymphs (auto) 0.70 L, Nucleated RBC % 0, Sodium 138, Potassium 3.8, Chloride 109 H, Carbon Dioxide 25.0, Anion Gap 4 L, BUN 11, Creatinine 0.75, Estim Creat Clear Calc 73.19, Est GFR (MDRD) Af Amer 103, Est GFR (MDRD) Non-Af 85, BUN/Creatinine Ratio 14.6, Glucose 105, Calcium 8.2 L, Magnesium 2.0 08/19/23 1408 <Electronically signed by Wander Garcia MD> Cosigner Signature (if applicable): CC: Dr. Arthur Thompson MD; Dr. Wander Garcia MD; VJ Maloney~ Signed [facility] Work Phone: [phone]) 648-972909-20-2023 Progress note Author Calderon Ware [facility] August 19, 2023 10:41am Note Date/Time August 19, 2023 7:51am [facility] Medical Records Department [address] [place] [address] Progress Note - Hospitalist 08/19/23 0750 MR#: [id number] Acct: [id number] Name: JESUSITA ENGLAND Rep #:[id number] : 1970 53 From: Calderon Ware MD PCP: VJ Maloney Status:ADM IN Location: [place] [address] Reason for Visit Reason for Visit: Diagnoses Obesity, unspecified (08/18/23) Lymphedema, not elsewhere classified (08/18/23) Irritable bowel syndrome without diarrhea (08/18/23) Cellulitis of right lower limb (08/18/23) Cellulitis, unspecified (08/18/23) Subjective Subjective Patient seen still has significant area of induration with warmth as well as tenderness involving the right cough. Remains on broad-spectrum antibiotic therapy. Consultation was placed to ID Objective Data Objective Data Vital Signs: Vital Signs Temp Pulse Resp BP Pulse Ox O2 Del Method 98.7 F 74 17 129/88 H 96 CPAP 08/19/23 02:56 08/19/23 02:56 08/19/23 02:56 08/19/23 02:56 08/19/23 02:56 08/19/23 02:56 Oxygen Delivery Method CPAP Weight: 211.3 kg Body Mass Index (BMI) 79.9 Intake & Output: Intake and Output for Last 24 Hours 08/17/23 08/18/23 08/19/23 23:59 23:59 23:59 Intake Total 4825.00 / 6075.00 2227.5 / 2227.5 Balance 4825.00 / 6075.00 2227.5 / 2227.5 Lab / Micro Data 08/19/23 06:15 08/19/23 06:15 Labs: Laboratory Results - last 24 hr 08/19/23 06:15: WBC 6.8, RBC 3.82 L, Hgb 10.4 L, Hct 33.6 L, MCV 88.0, MCH 27.2,MCHC 31.0 L, RDW Std Deviation 51.7 H, RDW Coeff of Rani 15.9 H, Plt Count 143 L,MPV 9.7, Immature Gran % (Auto) 1.000 H, Neut % (Auto) 79.4 H, Lymph % (Auto) 10.2 L, [place] % (Auto) 9.2, Eos % (Auto) 0.1, Baso % (Auto) 0.1, Absolute Neuts (auto) 5.4, Absolute Lymphs (auto) 0.70 L, Nucleated RBC % 0, Sodium 138, Potassium 3.8, Chloride 109 H, Carbon Dioxide 25.0, Anion Gap 4 L, BUN 11, Creatinine 0.75, Estim Creat Clear Calc 73.19, Est GFR (MDRD) Af Amer 103, Est GFR (MDRD) Non-Af 85, BUN/Creatinine Ratio 14.6, Glucose 105, Calcium 8.2 L, Magnesium 2.0 Physical Exam Narrative GENERAL: cooperative HEENT: Atraumatic; normocephalic EYES; Anicteric, Normal Conjunctiva NECK; supple, normal thyroid, RESPIRATORY: Diminished to auscultation CARDIOVASCULAR: Regular S1 S2, GI: soft, normoactive bowel sounds, : No Renal angle tenderness; EXTREMITIES: An area of erythema involving the medial aspect of the right lower extremity MUSCULOSKELETAL: no muscle wasting NEURO: Awake; no lateralizing signs. SKIN: As described above PSYCH; Flat affect Assessment & Plan Assessment/Plan (1) Cellulitis: QUALIFIERS: Laterality: right Site of cellulitis: extremity Siteof cellulitis of extremity: lower extremity Qualified Code(s): L03.115 - Cellulitis of right lower limb PLAN: Plan Patient is a 53-year-old lady with recent hospitalization for bilateral lower extremity cellulitis for which she was managed with Zosyn and vancomycin de- escalated to Rocephin discharged on Omnicef which she finished a week prior to her readmission. Presented to the ED with recurrent symptoms 1. Bilateral lower extremity cellulitis ? Admitted to monitored bed patient started on Rocephin. Consult placed to infectious disease due to the recurrent nature outpatient presentation ? 08/19/2023 patient seen still has significant area of induration with warmth aswell as tenderness involving the right cough. Remains on broad-spectrum antibiotic therapy. Consultation was placed to ID 2. Obstructive sleep apnea ? Consistent use of CPAP encouraged 3. Obesity hypoventilation syndrome ? Managed by pulmonary medicine as outpatient 4. GERD ? Patient is on PPI currently 5. Hypertension - Blood pressure controlled, home medications continued with dose adjustment as needed 6. Depression ? Patient is on venlafaxine home dose continued 7. DVT prophylaxis ? SC Lovenox Time spent in the patient's overall evaluation,decision-making process, review of diagnostic data, adjustment of management, discussion with other providers, nursing nursing and ancillary staff involved in patient's care documentation, 35minutes Charges/Coding Visit Charges Inpatient E&M: 63321 Subs Hosp L2 08/19/23 1041 <Electronically signed by Calderon Ware MD> Cosigner Signature (if applicable): CC: ~ Signed [facility] Work Phone: 1(995) 622-172009-19-2023 Progress note Author Calderon Rowematt [facility] August 18, 2023 10:45am Note Date/Time August 18, 2023 7:42am [facility] Medical Records Department [address] [place] [id number] Progress Note - Hospitalist 08/18/23 0738 MR#: [id number] Acct: [id number] Name: JESUSITA ENGLAND Rep #:[id number] : 1970 53 From: Calderon Ware MD PCP: VJ Maloney Status:ADM IN [facility] Reason for Visit Reason for Visit: Diagnoses Obesity, unspecified (08/18/23) Lymphedema, not elsewhere classified (08/18/23) Irritable bowel syndrome without diarrhea (08/18/23) Cellulitis, unspecified (08/18/23) Subjective Subjective Patient is a 53-year-old lady with recent hospitalization for bilateral lower extremity cellulitis for which she was managed with Zosyn and vancomycin de- escalated to Rocephin discharged on Omnicef which she finished a week prior to her readmission. Presented to the ED with recurrent symptoms Objective Data Objective Data Vital Signs: Vital Signs Temp Pulse Resp BP Pulse Ox O2 Del Method 100.7 F H 81 20 H 100/53 L 95 CPAP 08/18/23 04:28 08/18/23 04:28 08/18/23 04:28 08/18/23 04:28 08/18/23 04:28 08/18/23 04:28 Oxygen Delivery Method CPAP Weight: 211.3 kg Body Mass Index (BMI) 79.9 Intake & Output: Intake and Output for Last 24 Hours 08/16/23 08/17/23 08/18/23 23:59 23:59 23:59 Intake Total 1800.00 / 1800.00 Balance 1800.00 / 1800.00 Lab / Micro Data 08/18/23 03:32 08/18/23 03:32 Labs: Laboratory Results - last 24 hr 08/17/23 23:00: WBC 16.8 H, RBC 4.57, Hgb 12.5, Hct 39.9, MCV 87.3, MCH 27.4, MCHC 31.3 L, RDW Std Deviation 48.9 H, RDW Coeff of Rani 15.3 H, Plt Count 190, MPV 10.0, Immature Gran % (Auto) 0.800, Neut % (Auto) 90.9 H, Lymph % (Auto) 3.2L, [place] % (Auto) 5.0, Eos % (Auto) 0.0, Baso % (Auto) 0.1, Absolute Neuts (auto)15.3 H, Absolute Lymphs (auto) 0.54 L, Nucleated RBC % 0, Anisocytosis 1+, ESR 28, PT 12.9, INR 1.0, APTT 32.0, Sodium 136, Potassium 4.6, Chloride 103, CarbonDioxide 29.0, Anion Gap 4 L, BUN 20 H, Creatinine 0.92, Est GFR (MDRD) Af Amer 82, Est GFR (MDRD) Non-Af 68, BUN/Creatinine Ratio 21.8 H, Glucose 101, Lactic Acid 2.4 H*, Calcium 8.8, Total Bilirubin 0.40, AST 15, ALT 19, Alkaline Phosphatase 81, C-React Prot Ext Range 53.20 H, Total Protein 7.6, Albumin 3.3, Globulin 4.3 H, Albumin/Globulin Ratio 0.8 L 08/18/23 03:32: WBC 15.8 H, RBC 4.03 L, Hgb 11.0 L, Hct 35.3 L, MCV 87.6, MCH 27.3, MCHC 31.2 L, RDW Std Deviation 49.7 H, RDW Coeff of Rani 15.4 H, Plt Count 165, MPV 9.7, Immature Gran % (Auto) 1.000 H, Neut % (Auto) 90.8 H, Lymph % (Auto) 4.5 L, [place] % (Auto) 3.6, Eos % (Auto) 0.0, Baso % (Auto) 0.1, Absolute Neuts (auto) 14.4 H, Absolute Lymphs (auto) 0.71 L, Nucleated RBC % 0, Sodium 137, Potassium 4.1, Chloride 105, Carbon Dioxide 28.0, Anion Gap 4 L, BUN 18, Creatinine 0.86, Estim Creat Clear Calc 63.83, Est GFR (MDRD) Af Amer 88, Est GFR (MDRD) Non-Af 73, BUN/Creatinine Ratio 21.0 H, Glucose 99, Lactic Acid 1.1, Calcium 7.9 L Radiography Diagnostic Testing: Radiology Impression Chest X-Ray 08/17/23 22:38 IMPRESSION: No radiographic evidence of acute cardiopulmonary disease. Electronically Signed: Oli Stanley MD at 23:46 EDT , Physical Exam Narrative GENERAL: cooperative HEENT: Atraumatic; normocephalic EYES; Anicteric, Normal Conjunctiva NECK; supple, normal thyroid, RESPIRATORY: Diminished to auscultation CARDIOVASCULAR: Regular S1 S2, GI: soft, normoactive bowel sounds, : No Renal angle tenderness; EXTREMITIES: An area of erythema involving the medial aspect of the right lower extremity MUSCULOSKELETAL: no muscle wasting NEURO: Awake; no lateralizing signs. SKIN: As described above PSYCH; Flat affect Assessment & Plan Assessment/Plan (1) Cellulitis: QUALIFIERS: Laterality: right Site of cellulitis: extremity Siteof cellulitis of extremity: lower extremity Qualified Code(s): L03.115 - Cellulitis of right lower limb PLAN: Plan Patient is a 53-year-old lady with recent hospitalization for bilateral lower extremity cellulitis for which she was managed with Zosyn and vancomycin de- escalated to Rocephin discharged on Omnicef which she finished a week prior to her readmission. Presented to the ED with recurrent symptoms 1. Bilateral lower extremity cellulitis ? Admitted to monitored bed patient started on Rocephin. Consult placed to infectious disease due to the recurrent nature outpatient presentation 2. Obstructive sleep apnea ? Consistent use of CPAP encouraged 3. Obesity hypoventilation syndrome ? Managed by pulmonary medicine as outpatient 4. GERD ? Patient is on PPI currently 5. Hypertension - Blood pressure controlled, home medications continued with dose adjustment as needed 6. Depression ? Patient is on venlafaxine home dose continued 7. DVT prophylaxis ? SC Lovenox Time spent in the patient's overall evaluation,decision-making process, review of diagnostic data, adjustment of management, discussion with other providers, nursing nursing and ancillary staff involved in patient's care documentation, 50 Minutes Charges/Coding Visit Charges Inpatient E&M: 23738 Subs Hosp L3 08/18/23 1045 <Electronically signed by Calderon Ware MD> Cosigner Signature (if applicable): CC: ~ Signed [facility] Work Phone: 1([phone] 773-308609-19-2023 Discharge summary Author Mandy Arce [facility] August 18, 2023 3:05am Note Date/Time August 17, 2023 10:43pm [facility] Medical Records Department [address] [place] [address] Emergency Department Summary 08/17/23 MR#: [id number] Acct: [id number] Name: JESUSITA ENGLAND Rep #:[id number] : 1970 53 From: Mandy Arce MD PCP: VJ Maloney Status:ADM IN Location: [address] History of Present Illness Chief Complaint: Cellulitis Detail of Chief Complaint: Cellulitis, fever Informant: patient Onset/Context/Timing Onset: Today Narrative Narrative: Patient presents secondary to recurrent cellulitis. She was admitted to the hospital July 25 through July 31 for cellulitis of the bilateral lower extremities. She was initially treated on vancomycin and Zosyn then narrowed down to Rocephin after ID was consulted. Patient was discharged home on an additional 10 days of Omnicef which she finished 1 week ago. Patient noted increased redness and pain to the medial aspect of her right knee today consistent with her prior cellulitis flare. She still has erythema and warmth to the medial left knee. She did develop a fever tonight up to 101.9. [facility] Medical History Abnormal echocardiogram Anxiety Ascending aorta dilatation Asthma Depression Failure of outpatient treatment GERD without esophagitis Heel spur Hyperglycemia IBS (irritable bowel syndrome) Insomnia Osteoarthritis (arthritis due to wear and tear of joints) Home Medications acetaminophen 500 mg capsule 1,000 mg PO Q6H PRN Pain 07/11/21 [History Last Taken Unknown] aspirin 81 mg tablet,delayed release (Adult Low Dose Aspirin) 81 mg PO DAILY 07/11/21 [History Last Taken Unknown] ascorbic acid (vitamin C) 500 mg tablet 500 mg PO 1200 #0 tabs 08/01/21 [Rx Last Taken Unknown] ferrous sulfate 325 mg (65 mg iron) tablet (FeroSul) 325 mg PO DAILY@1200 #30 tabs 08/01/21 [Rx Last Taken Unknown] magnesium oxide 400 mg PO DAILY #30 caps 08/01/21 [Rx Last Taken Unknown] venlafaxine 75 mg capsule,extended release 24 hr (Effexor XR) 225 mg (3 x 75 mg)PO DAILY #90 caps 09/03/21 [Rx Last Taken Unknown] Lactobacillus acidophilus (Acidophilus capsule) 10 mg PO DAILY 07/24/23 [History Last Taken Unknown] cholestyramine (with sugar) 4 gram oral powder ea 07/24/23 [History Last Taken Unknown] doxycycline hyclate 100 mg capsule 100 mg PO BID 07/24/23 [History Last Taken Unknown] lisinopril 10 mg tablet 10 mg PO DAILY 07/24/23 [History Last Taken Unknown] omeprazole 40 mg capsule,delayed release 40 mg PO DAILY 07/24/23 [History Last Taken Unknown] pediatric multivitamin .Route 07/24/23 [History Last Taken Unknown] cefdinir 300 mg capsule 300 mg PO Q12H 10 days #20 caps 07/31/23 [Rx Last Taken Unknown] nystatin 100,000 unit/gram topical powder (Nyamyc) 1 applic topical BID 30 days #60 grams 07/31/23 [Rx Last Taken Unknown] Allergy/AdvReac Type Severity Reaction Status Date / Time adhesive tape AdvReac Unknown Other Verified 08/17/23 22:24 Family History Mother Alzheimer's dementia Surgical History H/O foot surgery History of cholecystectomy History of hip surgery Social History household members: spouse housing: house number of children: 1 current occupational status: employed 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 For lunch she has a bowl of soup and crackers which she takes to work. Sometimes has pretzels for a snack. Eats lunch at 12:30- 1 and does not get home until 7 PM and then she is starved. Her sometimes cooks and it is usually not healthy and may include pizza, hotdogs, fast food. Does not plan meals and her hisband is not supportive of healthy eating. He is a little overweight and likes to eat junk. ROS ROS ED Constitutional Constitutional ED: Reports fever(s); Denies chills Eyes Eyes: Denies change in vision or discharge from eye(s) ENT ENT ED: Denies discharge from eye(s), rhinorrhea or sore throat Cardiovascular Cardiovascular: Denies chest pain or palpitations Respiratory/Chest Respiratory/Chest: Denies cough or dyspnea Gastrointestinal Gastrointestinal: Reports diarrhea and nausea; Denies abdominal pain or vomiting Genitourinary Genitourinary ED: Denies difficulty urinating or dysuria Musculoskeletal Musculoskeletal: Reports extremity pain and myalgias; Denies back pain Integumentary Reports rash; Denies Abrasions Neurologic Neurologic: Reports headache(s); Denies weakness Psychiatric Psychiatric: Denies anxiety or depression Allergic/Immunologic Allergic/Immunologic ED: Denies lip swelling or urticaria EXAM Physical Exam Const Vital Signs: 08/17/23 22:20 08/17/23 23:11 08/17/23 23:46 Temperature 98.6 F 101.3 F H Temperature Source Temporal Oral Pulse Rate 99 86 Respiratory Rate 20 H 22 H Blood Pressure 131/82 H 129/72 H Blood Pressure Mean 98 91 Pulse Ox 98 97 Oxygen Delivery Method Room Air Room Air Room Air Positive obese Nutritional Appearance: obese HEENT Reports moist mucous membranes Eyes EOMs intact bilaterally Chest Wall inspection of chest normal and palpation of chest normal Resp normal respiratory effort and clear to auscultation bilaterally Cardio regular rate and regular rhythm GI non-tender Palpation: soft Extremity Extremity Narrative: Erythema and warmth noted to the medial aspect of both lower extremities at the level of the knees. No evidence of joint involvement. No evidence of open wounds. Neuro oriented x3 Skin Skin Narrative: Cellulitis as noted above. MDM MDM MDM Narrative Medical decision making narrative: Patient's most recent hospital admission for same was reviewed. Blood cultures were obtained. Labwork obtained to evaluate for leukocytosis, anemia, and electrolyte derangement. Chest x-ray obtained to evaluate for acutelung pathology, cardiac size, or mediastinal abnormality. IV Rocephin given. History & Record Review Discussion w/independent historian: Patient and Family Additional record(s) reviewed:: Prior inpatient record, Prior ED visit and Priorlabs Lab Data Attestation: I reviewed the patient's lab results. Labs: Laboratory Results - last 24 hr 08/17/23 23:00 WBC 16.8 H RBC 4.57 Hgb 12.5 Hct 39.9 MCV 87.3 MCH 27.4 MCHC 31.3 L RDW Std Deviation 48.9 H RDW Coeff of Rani 15.3 H Plt Count 190 MPV 10.0 Immature Gran % (Auto) 0.800 Neut % (Auto) 90.9 H Lymph % (Auto) 3.2 L [place] % (Auto) 5.0 Eos % (Auto) 0.0 Baso % (Auto) 0.1 Absolute Neuts (auto) 15.3 H Absolute Lymphs (auto) 0.54 L Nucleated RBC % 0 Anisocytosis 1+ ESR 28 PT 12.9 INR 1.0 APTT 32.0 Sodium 136 Potassium 4.6 Chloride 103 Carbon Dioxide 29.0 Anion Gap 4 L BUN 20 H Creatinine 0.92 Est GFR (MDRD) Af Amer 82 Est GFR (MDRD) Non-Af 68 BUN/Creatinine Ratio 21.8 H Glucose 101 Lactic Acid 2.4 H* Calcium 8.8 Total Bilirubin 0.40 AST 15 ALT 19 Alkaline Phosphatase 81 C-React Prot Ext Range 53.20 H Total Protein 7.6 Albumin 3.3 Globulin 4.3 H Albumin/Globulin Ratio 0.8 L Radiography Chest X-Ray - ED: 1 View, Read by ED Physician, Chronic Changes and No Infiltrates Diagnostic Testing: Clinical Impression(s) from Imaging Studies Chest X-Ray 08/17/23 22:38 IMPRESSION: No radiographic evidence of acute cardiopulmonary disease. Electronically Signed: Oli Stanley MD at 23:46 EDT , EKG Initial EKG: Attestation: I personally reviewed and interpreted this EKG as follows: Interpretation: Sinus Rhythm (Sinus 82 with no acute ischemia. QTc is 415.) Treatment and Re-Evaluation :: Patient was given a dose of morphine and Zofran secondary to pain. CBC was an elevated white count of 16.8 with 91% neutrophils. Hemoglobin is normal at 12.5. Chemistry studies are unremarkable with normal renal function. Lactic acid is elevated at 2.4. CRP is 53.2 and sed rate is 28. Coags are unremarkable. Patient's temperature did increase to 101.3 here. She is given Tylenol for fever. Given her elevated lactate I will give her IV fluid bolus. During her last admission she got fluid overloaded and required Lasix. Given her current weight of 217 kg I do not feel that would be in her best interest to give her 30cc/kg of actual body weight. I will give her 30 cc/kg of ideal body weight. She has already been initiated on Rocephin. I will speak with hospitalist for admission. Discharge Plan Triage Chief Complaint: Cellulitis ED Provider: Mandy Arce Dx/Rx/DC Orders Clinical Impression: Cellulitis, Sepsis Prescriptions: No Action acetaminophen 500 mg capsule 1,000 mg PO Q6H PRN (Reason: Pain) aspirin [Adult Low Dose Aspirin] 81 mg tablet,delayed release (DR/EC) 81 mg PO DAILY ascorbic acid (vitamin C) 500 mg Tablet 500 mg PO 1200 Qty: 0 0RF Rx Instructions: take this medication with the ferrous sulfate with food ferrous sulfate [FeroSul] 325 mg (65 mg iron) Tablet 325 mg PO DAILY@1200 Qty: 30 0RF magnesium oxide 400 mg magnesium capsule 400 mg PO DAILY Qty: 30 0RF venlafaxine [Effexor XR] 75 mg capsule,extended release 24hr 225 mg PO DAILY Qty: 90 0RF Rx Instructions: take 3 capsules every AM omeprazole 40 mg capsule,delayed release(DR/EC) 40 mg PO DAILY Patient Comments: TAKE 1 CAPSULE BY MOUTH ONCE DAILY lisinopril 10 mg tablet 10 mg PO DAILY Patient Comments: TAKE 1 TABLET BY MOUTH ONCE DAILY pediatric multivitamin [multivitamin] .Route doxycycline hyclate 100 mg capsule 100 mg PO BID Patient Comments: TAKE 1 CAPSULE BY MOUTH TWICE DAILY cholestyramine (with sugar) 4 gram powder Patient Comments: TAKE DIRECTED ON CONTAINER Acidophilus Capsule 10 mg PO DAILY cefdinir 300 mg capsule 300 mg PO Q12H 10 Days Qty: 20 0RF nystatin [Nyamyc] 100,000 unit/gram Powder 1 applic topical BID 30 Days Qty: 60 0RF Protocol: *Topical Application Instructions APPLICATION INSTRUCTIONS: apply to skin folds, particularly BLE Primary Care Provider: Alondra Crews Referrals: Alondra Crews PA [Primary Care Provider] - Disposition Disposition: Acute Care Hospital [facility] What to do if you have Problems For any increased pain, shortness of breath, bleeding, nausea or vomiting, chestpain, or any unexpected problems, contact your Primary Care Provider. Call [facility] ([phone]) or report to the closest Emergency Room. Call 911 if necessary. 08/18/23 7449 <Electronically signed by Mandy Arce MD> Cosigner Signature (if applicable): CC: VJ Maloney ~ Signed [facility] Work Phone: 1(453) 373-830809-19-2023 History and physical note Author Arthur Thompson [facility] August 18, 2023 12:50am Note Date/Time August 18, 2023 12:46am [facility] Medical Records Department [address] [place] [address] History & Physical Exam 08/18/23 0045 MR#: [id number] Acct: [id number] Name: JESUSITA ENGLAND Rep #:[id number] : 1970 53 From: Arthur Thompson MD PCP: VJ Maloney Status:REG ER Location: ED HPI - General General Date of Admission: 08/18/23 Date of Service: 08/18/23 Chief Complaint: Cellulitis HPI Narrative JESUSITA ENGLAND, is a 53 F who presents to the emergency room with chief complaint of cellulitis of the bilateral lower extremities around her knees. She had beenadmitted and treated for this and discharged July 31 and [facility] receiving [facility] and patient. She has been off antibiotics for 7 days and the cellulitis has recurred and now she is feeling fatigued and febrile. She denies nausea, or shortness of breath. She has an elevated white blood cell count of 16,000 with a left shift and a lactic acid of 2.4. She has been receiving IV fluids and antibiotics in the emergency room and will be admitted for further IV antibiotics and fluid. [facility] Medical History Abnormal echocardiogram Anxiety Ascending aorta dilatation Asthma Depression Failure of outpatient treatment GERD without esophagitis Heel spur Hyperglycemia IBS (irritable bowel syndrome) Insomnia Osteoarthritis (arthritis due to wear and tear of joints) Home Medications acetaminophen 500 mg capsule 1,000 mg PO Q6H PRN Pain 07/11/21 [History Last Taken Unknown] aspirin 81 mg tablet,delayed release (Adult Low Dose Aspirin) 81 mg PO DAILY 07/11/21 [History Last Taken Unknown] ascorbic acid (vitamin C) 500 mg tablet 500 mg PO 1200 #0 tabs 08/01/21 [Rx Last Taken Unknown] ferrous sulfate 325 mg (65 mg iron) tablet (FeroSul) 325 mg PO DAILY@1200 #30 tabs 08/01/21 [Rx Last Taken Unknown] magnesium oxide 400 mg PO DAILY #30 caps 08/01/21 [Rx Last Taken Unknown] venlafaxine 75 mg capsule,extended release 24 hr (Effexor XR) 225 mg (3 x 75 mg)PO DAILY #90 caps 09/03/21 [Rx Last Taken Unknown] Lactobacillus acidophilus (Acidophilus capsule) 10 mg PO DAILY 07/24/23 [History Last Taken Unknown] cholestyramine (with sugar) 4 gram oral powder ea 07/24/23 [History Last Taken Unknown] doxycycline hyclate 100 mg capsule 100 mg PO BID 07/24/23 [History Last Taken Unknown] lisinopril 10 mg tablet 10 mg PO DAILY 07/24/23 [History Last Taken Unknown] omeprazole 40 mg capsule,delayed release 40 mg PO DAILY 07/24/23 [History Last Taken Unknown] pediatric multivitamin .Route 07/24/23 [History Last Taken Unknown] cefdinir 300 mg capsule 300 mg PO Q12H 10 days #20 caps 07/31/23 [Rx Last Taken Unknown] nystatin 100,000 unit/gram topical powder (Nyamyc) 1 applic topical BID 30 days #60 grams 07/31/23 [Rx Last Taken Unknown] Allergy/AdvReac Type Severity Reaction Status Date / Time adhesive tape AdvReac Unknown Other Verified 08/17/23 22:24 Family History Mother Alzheimer's dementia Surgical History H/O foot surgery History of cholecystectomy History of hip surgery Social History household members: spouse housing: house number of children: 1 current occupational status: employed 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 For lunch she has a bowl of soup and crackers which she takes to work. Sometimes has pretzels for a snack. Eats lunch at 12:30- 1 and does not get home until 7 PM and then she is starved. Her sometimes cooks and it is usually not healthy and may include pizza, hotdogs, fast food. Does not plan meals and her hisband is not supportive of healthy eating. He is a little overweight and likes to eat junk. ROS Constitutional Constitutional: Reports chills, fatigue and fever(s) Eyes Eyes: Denies blurry vision ENT HEENT: Denies abnormal hearing Cardiovascular Cardiovascular: Denies chest pain Respiratory/Chest Respiratory/Chest: Denies shortness of breath at rest Gastrointestinal Gastrointestinal: Denies abdominal pain Genitourinary Genitourinary: Denies dysuria Musculoskeletal Musculoskeletal: Reports joint pain Integumentary Integumentary: Denies dry skin Neurologic Neurologic: Denies abnormal speech or confusion Psychiatric Psychiatric: Denies anxiety Vital Signs Vital Signs Vital Signs: 08/17/23 22:20 08/17/23 23:11 08/17/23 23:46 Temperature 98.6 F 101.3 F H Temperature Source Temporal Oral Pulse Rate 99 86 Respiratory Rate 20 H 22 H Blood Pressure 131/82 H 129/72 H Blood Pressure Mean 98 91 Pulse Ox 98 97 Oxygen Delivery Method Room Air Room Air Room Air Weight Weight: 479 lb 15.141 oz Body Mass Index (BMI) 82.3 Physical Exam Const oriented x3 HEENT normocephalic and head/scalp atraumatic Eyes PERRL and EOMs intact bilaterally Neck no lymphadenopathy Lymph Lymphatic: no lymphadenopathy noted Resp normal respiratory effort, normal air movement and clear to auscultation bilaterally Cardio regular rate, regular rhythm, S1 normal heart sound, S2 normal heart sound and no murmurs GI normal to inspection, nondistended, normoactive bowel sounds Extremity normal capillary refill Skin Skin Narrative: Bilateral lower extremity cellulitis from mid upper calf to medial thigh on bothlegs. Patient is morbidly obese General Skin Exam: no breakdown Neuro no focal motor deficits and no sensory deficits noted Psych thought process normal, cooperative and affect normal Results Lab / Micro Data 08/17/23 23:00 08/17/23 23:00 Labs: Laboratory Results - last 24 hr 08/17/23 23:00: WBC 16.8 H, RBC 4.57, Hgb 12.5, Hct 39.9, MCV 87.3, MCH 27.4, MCHC 31.3 L, RDW Std Deviation 48.9 H, RDW Coeff of Rani 15.3 H, Plt Count 190, MPV 10.0, Immature Gran % (Auto) 0.800, Neut % (Auto) 90.9 H, Lymph % (Auto) 3.2L, [place] % (Auto) 5.0, Eos % (Auto) 0.0, Baso % (Auto) 0.1, Absolute Neuts (auto)15.3 H, Absolute Lymphs (auto) 0.54 L, Nucleated RBC % 0, Anisocytosis 1+, ESR 28, PT 12.9, INR 1.0, APTT 32.0, Sodium 136, Potassium 4.6, Chloride 103, CarbonDioxide 29.0, Anion Gap 4 L, BUN 20 H, Creatinine 0.92, Est GFR (MDRD) Af Amer 82, Est GFR (MDRD) Non-Af 68, BUN/Creatinine Ratio 21.8 H, Glucose 101, Lactic Acid 2.4 H*, Calcium 8.8, Total Bilirubin 0.40, AST 15, ALT 19, Alkaline Phosphatase 81, C-React Prot Ext Range 53.20 H, Total Protein 7.6, Albumin 3.3, Globulin 4.3 H, Albumin/Globulin Ratio 0.8 L Radiology Impression Chest X-Ray 08/17/23 22:38 IMPRESSION: No radiographic evidence of acute cardiopulmonary disease. Electronically Signed: Oli Stanley MD at 23:46 EDT , Assessment & Plan Assessment/Plan (1) Cellulitis: (2) Lymphedema associated with obesity: (3) IBS (irritable bowel syndrome): PLAN: Plan 1 cellulitis of the lower extremities bilaterally?admit patient to general medical floor, IV Rocephin 2 g every 24 hours, repeat CBC BMP and lactic acid level, continue IV fluids at a rate of 150 cc/h. 2. Irritable bowel syndrome?continue routine home medications 3. DVT prophylaxis?low molecular weight heparin Charges/Coding Visit Charges Inpatient E&M: 58679 Init Hosp L2 08/18/23 0050 <Electronically signed by Arthur Thompson MD> Cosigner Signature (if applicable): CC: Dr. Arthur Thompson MD; VJ Maloney~ Signed [facility] Work Phone: 1(507) 657-580209-19-2023 [facility]09-01-2023 Discharge summary Author Betty Calvin [facility] July 31, 2023 9:46am Note Date/Time July 31, 2023 7:28am [facility] Medical Records Department [address] [place] [address] Discharge Summary 07/31/23 0722 MR#: [id number] Acct: [id number] Name: JESUSITA ENGLAND Rep #:[id number] : 1970 53 From: Betty Calvin MD PCP: VJ Maloney Status:ADM [facility] Prov[facility] Date of Admission: 07/25/23 Date of Discharge: 07/31/23 Primary Care Physician: VJ Maloney Consultations 07/25/23 02:40 Consult: Onc/Wound/dog licenser Routine Comment: 07/27/23 11:53 Consult: Infectious Disease Routine Consulting Provider: Wander Garcia Reason for Consult: persistent cellulitis above knee despite broad spectrum abx, high crp EMERGENT Consult: No MD Notified: Yes Date Notified: 07/27/23 Time Notified: 12:34 Method of Notification: Text Reason For Visit: CELLULITIS Diagnosis Discharge Diagnosis (1) Failure of outpatient treatment: Status: Acute Code(s): Z78.9 - Other specified health status (2) Cellulitis: Status: Acute Code(s): L03.90 - Cellulitis, unspecified (3) Hyperglycemia: Status: Acute Code(s): R73.9 - Hyperglycemia, unspecified Plan #Bilateral lower extremity cellulitis #Prediabetes #MIGUEL/obesity hypoventilation syndrome #hx of iron deficiency anemia #lymphedema #Hypertension #GERD #Depression #Osteoarthritis #Super morbid obesity Medications at Discharge Home Medications acetaminophen 500 mg capsule 1,000 mg PO Q6H PRN Pain 07/11/21 aspirin 81 mg tablet,delayed release (Adult Low Dose Aspirin) 81 mg PO DAILY 07/11/21 ascorbic acid (vitamin C) 500 mg tablet 500 mg PO 1200 #0 tabs 08/01/21 ferrous sulfate 325 mg (65 mg iron) tablet (FeroSul) 325 mg PO DAILY@1200 #30 tabs 08/01/21 magnesium oxide 400 mg PO DAILY #30 caps 08/01/21 venlafaxine 75 mg capsule,extended release 24 hr (Effexor XR) 225 mg (3 x 75 mg)PO DAILY #90 caps 09/03/21 Lactobacillus acidophilus (Acidophilus capsule) 10 mg PO DAILY 07/24/23 cholestyramine (with sugar) 4 gram oral powder ea 07/24/23 doxycycline hyclate 100 mg capsule 100 mg PO BID 07/24/23 lisinopril 10 mg tablet 10 mg PO DAILY 07/24/23 omeprazole 40 mg capsule,delayed release 40 mg PO DAILY 07/24/23 pediatric multivitamin .Route 07/24/23 cefdinir 300 mg capsule 300 mg PO Q12H 10 days #20 caps 07/31/23 nystatin 100,000 unit/gram topical powder (Nyamyc) 1 applic topical BID 30 days #60 grams 07/31/23 Hospital Course Summary of Care Provided Minutes Spent on Discharge: 40 Hospital Course: 53-year-old female history of lymphedema, GERD, osteoarthritis, obesity, recurrent lower extremity cellulitis presented to [facility] 07/25/2023 with bilateral lower extremity cellulitis but left lower extremity with new cellulitis that is rapidly progressive. For her right lower extremity she has been off and on Keflex and doxycycline multiple times with initial improvement and ultimately returning to baseline, the day leading up to admission she developed a spot near her left knee that then rapidly progressed prompting admission to the hospital especially given her multiple failures of outpatient antibiotics. She was started on vancomycin and Zosyn and blood cultures obtained, she did have elevated ESR and CRP and was febrile, blood cultures were negative and due to very slow improvement/stalled improvement of left mid extremity (other cellulitis improved significantly and quickly) infectious disease was consulted and they switched antibiotics/narrowed to Rocephin and ultimately will decide on amoxicillin prophylaxis longer-term. Patient continued to improve and on day of discharge reports feeling better than she was, still has some aspect of cellulitis but is receding from marked margins andinflammatory markers improving. Patient comfortable discharge home and follow-up with PCP and infectious disease, will DC on 10 days of Omnicef. Of note during her hospitalization she did have an aspect of shortness of breath, she had chest x- ray which. Slightly overloaded and a mildly elevated BNP and was given a dose of Lasix and incentive spirometry, echo obtained to rule out any underlying cardiac etiology and this was normal, suspect given the large amount of fluid she got on presentation that she was overloaded mildly from this in conjunction with MIGUEL/OHS and breathing improved. Physical Exam Narrative General: Alert, oriented, no apparent distress HEENT: Atraumatic, normocephalic Eyes: Anicteric, normal conjunctiva, extraocular movements grossly intact Neck: Supple Respiratory: Clear to auscultation bilaterally, normal respiratory effort Cardiovascular: Regular rate and rhythm GI: Soft, nontender, nondistended Extremities: As below Musculoskeletal: Moving all extremities Neuro: No overt focal neurological deficits Skin: Primarily localized erythema on the left leg above the knee which is improving, rest of legs are improved with some chronic changes residual Psych: Cooperative Weight / BMI Weight Weight: 223.4 kg Body Mass Index (BMI) 82.0 ABG / Lab / Microbiology Data 07/31/23 06:55 07/31/23 06:55 Laboratory: Laboratory Results - last 24 hr 07/30/23 06:05: ESR 55 H 07/31/23 06:55: WBC 5.8, RBC 4.12 L, Hgb 11.1 L, Hct 35.9 L, MCV 87.1, MCH 26.9 L, MCHC 30.9 L, RDW Std Deviation 47.3 H, RDW Coeff of Rani 14.9 H, Plt Count 208, MPV 9.3, Immature Gran % (Auto) 2.100 H, Neut % (Auto) 66.9, Lymph % (Auto)21.3, [place] % (Auto) 9.3, Eos % (Auto) 0.2, Baso % (Auto) 0.2, Absolute Neuts (auto) 3.9, Absolute Lymphs (auto) 1.24, Nucleated RBC % 0 Microbiology: Microbiology 07/25/23 16:14 Blood Culture (Wb) - Anticubital Left Blood Culture - Preliminary No growth in 5 days. 07/25/23 16:07 Blood Culture (Wb) - Anticubital Right Blood Culture - Preliminary No growth in 5 days. D/C Instructions Discharge Diet: 2000 Calorie Control Diet Return to work on: 08/05/23 (Subject to change based on progress and PCP assessmnet) Meaningful Use Info Meaningful Use Diagnoses (Choose all that apply): None applicable Discharge Plan Admission Admit Date/Time: 07/25/23 00:36 Primary Reason for Your Visit: Lower extremity cellulitis Attending Provider: Betty Calvin Primary Care Provider: Alondra Crews Consulting Providers: Adrianna Mejia; Wander Garcia Instructions Patient Instructions: Cellulitis, Cellulitis Dc Additional Instructions / Restrictions: DISCHARGE INSTRUCTIONS PLEASE READ *Please take this with you to your next doctors appointment* -You will be discharged on another 10 days of antibiotics, cefdinir/Omnicef 300 mg twice daily. This has been sent to your preferred pharmacy on file the [facility] in [place] per our discussion -Please follow-up with Dr. Garcia with infectious disease upon discharge. Please call their office to schedule hospital follow-up appointment upon discharge. -Please elevate your legs as possible -Would benefit from wearing a strap for lymphedema boots if possible -Additionally you are noted to have prediabetes, would recommend it and lifestyle modifications, your primary care physician may consider putting on a medication like metformin but will defer at this time to your primary care physician -Please call your primary care provider's office upon discharge to schedule a hospital follow up within 1 week. -For any concerning signs or symptoms please call 911 or proceed to the nearest emergency department Discharge Orders/Prescriptions Prescriptions: New cefdinir 300 mg capsule 300 mg PO Q12H 10 Days Qty: 20 0RF nystatin [Nyamyc] 100,000 unit/gram Powder 1 applic topical BID 30 Days Qty: 60 0RF Protocol: *Topical Application Instructions APPLICATION INSTRUCTIONS: apply to skin folds, particularly BLE Continued acetaminophen 500 mg capsule 1,000 mg PO Q6H PRN (Reason: Pain) aspirin [Adult Low Dose Aspirin] 81 mg tablet,delayed release (DR/EC) 81 mg PO DAILY ascorbic acid (vitamin C) 500 mg Tablet 500 mg PO 1200 Qty: 0 0RF Rx Instructions: take this medication with the ferrous sulfate with food ferrous sulfate [FeroSul] 325 mg (65 mg iron) Tablet 325 mg PO DAILY@1200 Qty: 30 0RF magnesium oxide 400 mg magnesium capsule 400 mg PO DAILY Qty: 30 0RF venlafaxine [Effexor XR] 75 mg capsule,extended release 24hr 225 mg PO DAILY Qty: 90 0RF Rx Instructions: take 3 capsules every AM omeprazole 40 mg capsule,delayed release(DR/EC) 40 mg PO DAILY Patient Comments: TAKE 1 CAPSULE BY MOUTH ONCE DAILY lisinopril 10 mg tablet 10 mg PO DAILY Patient Comments: TAKE 1 TABLET BY MOUTH ONCE DAILY pediatric multivitamin [multivitamin] .Route doxycycline hyclate 100 mg capsule 100 mg PO BID Patient Comments: TAKE 1 CAPSULE BY MOUTH TWICE DAILY cholestyramine (with sugar) 4 gram powder Patient Comments: TAKE DIRECTED ON CONTAINER Acidophilus Capsule 10 mg PO DAILY Referrals / Follow Up: Wander Garcia MD [Med Staff - Active Staff] - Within 2 Weeks ( -Please follow-up with infectious disease upon discharge. Please call their office to schedule hospital follow-up appointment upon discharge.) Alondra Crews PA [Primary Care Provider] - In 1 Day Disposition Disposition (needs filled in before D/C Order can be placed): Home, Self Care Charges/Coding Visit Charges Inpatient E&M: 43186 Disch Hosp >30min 07/31/23 0946 <Electronically signed by Betty Calvin MD> Cosigner Signature (if applicable): CC: Dr. Betty Calvin MD; VJ Maloney~ Signed [facility] Work Phone: 1(601) 667-149309-01-2023 Discharge summary Author Betty Calvin [facility] July 31, 2023 9:46am Note Date/Time July 31, 2023 7:19am [facility] Medical Records Department [address] [place] [address] Instructions for Home/Discharge Instructions 07/31/23 0716 MR#: [id number] Acct: [id number] Name: JESUSITA ENGLAND Rep #:[id number] : 1970 53 From: Betty Calvin MD PCP: VJ Maloney Status:ADM IN Discharge Instructions Diet Discharge Diet: 1999 Calorie Control Diet Activity Discharge Activity: - (Legs elevated when possible) Return to work on:: 08/05/23 (Subject to change based on progress and PCP assessmnet) Follow Up Care Test Results: Test results from this visit will be discussed in further detail at your follow- up appointment, if applicable. Discharge Plan Admission Admit Date/Time: 07/25/23 00:36 Primary Reason for Your Visit: Lower extremity cellulitis Attending Provider: Betty Calvin Primary Care Provider: Alondra Crews Consulting Providers: Adrianna Mejia; Wander Garcia Instructions Patient Instructions: Cellulitis, Cellulitis Dc Additional Instructions / Restrictions: DISCHARGE INSTRUCTIONS PLEASE READ *Please take this with you to your next doctors appointment* -You will be discharged on another 10 days of antibiotics, cefdinir/Omnicef 300 mg twice daily. This has been sent to your preferred pharmacy on file the [facility] in [place] per our discussion -Please follow-up with Dr. Garcia with infectious disease upon discharge. Please call their office to schedule hospital follow-up appointment upon discharge. -Please elevate your legs as possible -Would benefit from wearing a strap for lymphedema boots if possible -Additionally you are noted to have prediabetes, would recommend it and lifestyle modifications, your primary care physician may consider putting on a medication like metformin but will defer at this time to your primary care physician -Please call your primary care provider's office upon discharge to schedule a hospital follow up within 1 week. -For any concerning signs or symptoms please call 911 or proceed to the nearest emergency department Discharge Orders/Prescriptions Prescriptions: New cefdinir 300 mg capsule 300 mg PO Q12H 10 Days Qty: 20 0RF nystatin [Nyamyc] 100,000 unit/gram Powder 1 applic topical BID 30 Days Qty: 60 0RF Protocol: *Topical Application Instructions APPLICATION INSTRUCTIONS: apply to skin folds, particularly BLE Continued acetaminophen 500 mg capsule 1,000 mg PO Q6H PRN (Reason: Pain) aspirin [Adult Low Dose Aspirin] 81 mg tablet,delayed release (DR/EC) 81 mg PO DAILY ascorbic acid (vitamin C) 500 mg Tablet 500 mg PO 1200 Qty: 0 0RF Rx Instructions: take this medication with the ferrous sulfate with food ferrous sulfate [FeroSul] 325 mg (65 mg iron) Tablet 325 mg PO DAILY@1200 Qty: 30 0RF magnesium oxide 400 mg magnesium capsule 400 mg PO DAILY Qty: 30 0RF venlafaxine [Effexor XR] 75 mg capsule,extended release 24hr 225 mg PO DAILY Qty: 90 0RF Rx Instructions: take 3 capsules every AM omeprazole 40 mg capsule,delayed release(DR/EC) 40 mg PO DAILY Patient Comments: TAKE 1 CAPSULE BY MOUTH ONCE DAILY lisinopril 10 mg tablet 10 mg PO DAILY Patient Comments: TAKE 1 TABLET BY MOUTH ONCE DAILY pediatric multivitamin [multivitamin] .Route doxycycline hyclate 100 mg capsule 100 mg PO BID Patient Comments: TAKE 1 CAPSULE BY MOUTH TWICE DAILY cholestyramine (with sugar) 4 gram powder Patient Comments: TAKE DIRECTED ON CONTAINER Acidophilus Capsule 10 mg PO DAILY Referrals / Follow Up: Wander Garcia MD [Med Staff - Active Staff] - Within 2 Weeks ( -Please follow-up with infectious disease upon discharge. Please call their office to schedule hospital follow-up appointment upon discharge.) Alondra Crews PA [Primary Care Provider] - In 1 Day Disposition Disposition (needs filled in before D/C Order can be placed): Home, Self Care 07/31/23 0946<Electronically signed by Betty Calvin MD>Betty Calvin MD CC: Dr. Adrianna Mejia, ; Dr. Wander Garcia MD; VJ Maloney ~ Signed [facility] Work Phone: 1(392) 475-551509-01-2023 [facility]08-31-2023 Progress note Author Betty Calvin [facility] July 30, 2023 10:51am Note Date/Time July 30, 2023 8: 21am [facility] Medical Records Department [address] [place] [id number] Progress Note - Hospitalist 07/30/2318 MR#: [id number] Acct: [id number] Name: JESUSITA ENGLAND Rep #:[id number] : 1970 53 From: Betty Calvin MD PCP: VJ Maloney Status:ADM IN Location: [facility] [id number] Reason for Visit Reason for Visit: Diagnoses Obesity, unspecified (07/25/23) Lymphedema, not elsewhere classified (07/25/23) Cellulitis, unspecified (07/25/23) Hyperglycemia, unspecified (07/25/23) Other specified health status (08/26/23) Subjective Subjective Patient feeling better but extremely anxious about potentially going home, discussed risks and benefits and ultimately plan to DC home tomorrow after a.m. antibiotics, patient was agreeable Objective Data Objective Data Vital Signs: Vital Signs Temp Pulse Resp BP Pulse Ox O2 Del Method 97.8 F 71 18 100/51 L 95 Room Air 07/30/23 02:06 07/30/23 02:06 07/30/23 02:06 07/30/23 02:06 07/30/23 02:06 07/30/23 02:25 Oxygen Delivery Method Room Air Weight: 223.4 kg Body Mass Index (BMI) 82.0 Intake & Output: Intake and Output for Last 24 Hours 07/28/23 07/29/23 07/30/23 23:59 23:59 23:59 Intake Total 350 / 350 50 / 50 Balance 350 / 350 50 / 50 Lab / Micro Data 07/30/23 06:05 07/30/23 06:05 Labs: Laboratory Results - last 24 hr 07/30/23 06:05: WBC 6.0, RBC 4.04 L, Hgb 11.0 L, Hct 36.1 L, MCV 89.4, MCH 27.2,MCHC 30.5 L, RDW Std Deviation 49.1 H, RDW Coeff of Rani 15.0 H, Plt Count 184, MPV 9.4, Immature Gran % (Auto) 1.700 H, Neut % (Auto) 66.0, Lymph % (Auto) 20.6, [place] % (Auto) 11.2 H, Eos % (Auto) 0.2, Baso % (Auto) 0.3, Absolute Neuts (auto) 3.9, Absolute Lymphs (auto) 1.23, Nucleated RBC % 0, Sodium 139, Potassium 4.2, Chloride 107, Carbon Dioxide 29.0, Anion Gap 3 L, BUN 13, Creatinine 0.79, Estim Creat Clear Calc 69.48, Est GFR (MDRD) Af Amer 97, Est GFR (MDRD) Non-Af 80, BUN/Creatinine Ratio 16.4, Glucose 107 H, Calcium 8.9, C-React Prot Ext Range 120.00 H Micro: Microbiology 07/25/23 16:14 Blood Culture (Wb) - Anticubital Left Blood Culture - Preliminary No growth in 5 days. 07/25/23 16:07 Blood Culture (Wb) - Anticubital Right Blood Culture - Preliminary No growth in 5 days. Radiography Diagnostic Testing: Radiology Impression Echocardiogram 07/29/23 08:07 Interpretation Summary The estimated ejection fraction is 60 %. No evidence for diastolic dysfunction. Ordering Physician: Betty Calvin Referring Physician: Alondra Crews Performed By: Meliza Avila, ISABELA, RVT Physical Exam Narrative General: Alert, oriented, no apparent distress HEENT: Atraumatic, normocephalic Eyes: Anicteric, normal conjunctiva, extraocular movements grossly intact Neck: Supple Respiratory: Clear to auscultation bilaterally, normal respiratory effort Cardiovascular: Regular rate and rhythm GI: Soft, nontender, nondistended Extremities: As below Musculoskeletal: Moving all extremities Neuro: No overt focal neurological deficits Skin: Primarily localized erythema on the left leg above the knee which is unchanged from yesterday, rest of legs are improving from erythema perspective, some chronic changes bilaterally, erythema receding from marked edges Psych: Cooperative Assessment & Plan Assessment/Plan (1) Failure of outpatient treatment: (2) Cellulitis: (3) Hyperglycemia: PLAN: Plan Bilateral lower extremity cellulitis -Started on the right and has to the left -Mild systemic symptoms -Has had 2 rounds of outpatient Keflex and 2 rounds of outpatient doxycycline -Agree with Vanco and Zosyn for now -No wounds to culture -Elevate lower extremities -We will consult wound nurse to help with wrapping lower extremities -Had echocardiogram done on 06/19/2021 at [facility] that showed normal EF and no significant valvular disease however they were unable to estimate right ventricular systolic pressure -ESR and CRP are pending -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 Did have a lower extremity Doppler 07/08/2023 on the right side which demonstrated no right lower extremity DVT. Patient has fever of 100.8 and feels cold, blood culture was unable to be sent yesterday, will repeat cultures and will repeat labs as well to verify patient is not worsening. Patient does not think her legs feel worse she just does not think they feel much better yet, no pain when resting, legs marked. Continue abx at this time -07/26: CRP stabilized and ESR trending down, no wound culture however blood cultures pending, continue to monitor improvement, BP variable but MAP adequate,will give small bolus of fluids and hold lisinopril, additionally given legs have improved significantly but has 1 localized area that is much slower to respond will obtain ultrasound to assess for area that may need drained -07/27: Blood cultures no growth to date, most patient cellulitis improved on thebroad-spectrum antibiotics however she still has the localized cellulitic area on left thigh without significant improvement, CRP still remains significantly elevated. Ultrasound without drainable abscess. Will consult ID for additionalinput given patient has area that is not responding to antibiotics as the rest of leg did -07/28: Patient switched to Rocephin, may need amoxicillin prophylaxis on a longer-term basis, ID continue to follow, patient still having significant enough pain she is not yet ready for discharge -07/29: ESR and CRP both increased and patient still with erythema and pain, she is on Rocephin and ID is following, appreciate ID recommendations, cultures no growth to date -07/30: CRP downtrending with continued Rocephin use, ID following, plan will be home tomorrow with 10 days of Omnicef and ID follow-up in 2 weeks and follow-up with PCP Shortness of breath -Patient was complaining of having difficulty taking a deep breath and feeling more short of breath on exertion, she has gotten fluids with her antibiotics andfluids in general given her infection since admission, x-ray showed cardiomegalyand some pulmonary congestion and BNP was 232 -Patient given 20 IV Lasix -We will obtain echocardiogram -07/30: Echocardiogram normal, suspect shortness of breath secondary to atelectasis and OHS, continue BiPAP nightly, continue to encourage ambulation Hyperglycemia -Mild -Check hemoglobin A1c with infection -No history of diabetes -07/25: Hemoglobin A1c 5.9, mildly elevated, would benefit from weight loss and lifestyle changes MIGUEL/obesity hypoventilation syndrome -Continue home NIPPV -Follows with Dr. Johnson History of iron deficiency anemia -Hemoglobin stable -Continue home iron supplementation Hypertension -Continue home lisinopril GERD -PPI Depression -Continue home Effexor Osteoarthritis -Scheduled Tylenol Super morbid obesity -BMI 78.5 -Recommend weight loss -Complicates treatment, prognosis, outcomes DVT prophylaxis -Lovenox subcu 40 twice daily CODE STATUS -Full code as per discussion on admission Time spent in the patient's overall evaluation,decision-making process, review of diagnostic data, adjustment of management, discussion with other providers, nursing nursing and ancillary staff involved in patient's care documentation, 36minutes Charges/Coding Visit Charges Inpatient E&M: 55822 Subs Hosp L2 07/30/23 1051 <Electronically signed by Betty Calvin MD> Cosigner Signature (if applicable): CC: ~ Signed [facility] Work Phone: 1(730) 531-135908-31-2023 Progress note Author Wander Garcia [facility] July 30, 2023 10:17am Note Date/Time July 30, 2023 10 :17am [facility] Medical Records Department [address] [place] [address] Progress Note - Infect Disease 07/30/23 1016 MR#: [id number] Acct: [id number] Name: JESUSITA ENGLAND Rep #:[id number] : 1970 53 From: Wander bledsoe MD PCP: VJ Maloney Status:ADM IN Location: [address] Physical Exam Narrative Leg still sore, controlled with tylenol for the most part, no fever Const alert and no apparent distress General Appearance: cooperative Resp normal air movement and clear to auscultation bilaterally Cardio regular rate and regular rhythm Skin Skin Narrative: Slowly fading LLE redness ID ID: Route of nutrition/ use of supplements: [] Nutritional Intake: [] IV Site: [] Galeano Catheter: [] Assessment & Plan Assessment/Plan (1) Lymphedema associated with obesity: (2) Cellulitis: PLAN: recurrent RLE cellulitis, now developed LLE cellulitis on outpt doxy/keflex. Improving here on vanc/zosyn. 07/27 narrowed ceftriaxone for nonpurulent cellulitis, will need to consider senior care amox as prophylaxis and referral to edema clinic for prevention. Added antifungal powder to skin folds. Both legs slowly improving, less red. Ok for home with 10 days omnicef 300mg bid, ID followup in 2 weeks. Will follow 07/30/23 1017 <Electronically signed by Wander Garcia MD> Cosigner Signature (if applicable): CC: ~ Signed [facility] Work Phone: 1(272) 777-502208-30-2023 Progress note Author Wander Garcia [facility] July 29, 2023 4:06pm Note Date/Time July 29, 2023 4: 06pm [facility] Medical Records Department [address] [place] [address] Progress Note - Infect Disease 07/29/23 1605 MR#: [id number] Acct: [id number] Name: JESUSITA ENGLAND Rep #:[id number] : 1970 53 From: Wander bledsoe MD PCP: VJ Maloney Status:ADM IN [facility] Physical Exam Narrative Some pain in legs, no fever Const alert and no apparent distress General Appearance: cooperative Resp normal air movement and clear to auscultation bilaterally Cardio regular rate and regular rhythm GI soft to palpation, non-tender and non-distended Skin Skin Narrative: BLE less red ID ID: Route of nutrition/ use of supplements: [] Nutritional Intake: [] IV Site: [] Galeano Catheter: [] Assessment & Plan Assessment/Plan (1) Lymphedema associated with obesity: (2) Cellulitis: PLAN: recurrent RLE cellulitis, now developed LLE cellulitis on outpt doxy/keflex. Improving here on vanc/zosyn. 07/27 narrowed ceftriaxone for nonpurulent cellulitis, will need to consider senior care amox as prophylaxis and referral to edema clinic for prevention. Added antifungal powder to skin folds. Both legs slowly improving, less red. Will follow 07/29/23 1606 <Electronically signed by Wander Garcia MD> Cosigner Signature (if applicable): CC: ~ Signed [facility] Work Phone: 1(702) 586-346508-30-2023 Progress note Author Betty Calvin [facility] July 29, 2023 9:14am Note Date/Time July 29, 2023 8: 10am [facility] Medical Records Department [address] [place] [address] Progress Note - Hospitalist 07/29/23807 MR#: [id number] Acct: [id number] Name: JESUSITA ENGLAND Rep #:[id number] : 1970 53 From: Betty Calvin MD PCP: VJ Maloney Status:ADM IN Location: [facility] Reason for Visit Reason for Visit: Diagnoses Obesity, unspecified (07/25/23) Lymphedema, not elsewhere classified (07/25/23) Cellulitis, unspecified (07/25/23) Hyperglycemia, unspecified (07/25/23) Other specified health status (07/25/23) Subjective Subjective Said better last night, still having the same amount of pain and swelling in the1 area above her left knee but right leg feels much better Objective Data Objective Data Vital Signs: Vital Signs Temp Pulse Resp BP Pulse Ox O2 Del Method 97.9 F 72 18 123/68 H 96 CPAP 07/29/23 06:12 07/29/23 06:12 07/29/23 06:12 07/29/23 06:12 07/29/23 06:12 07/29/23 06:12 Oxygen Delivery Method CPAP Weight: 223.6 kg Body Mass Index (BMI) 82.1 Intake & Output: Intake and Output for Last 24 Hours 07/27/23 07/28/23 07/29/23 23:59 23:59 23:59 Intake Total 2430 / 2630 350 / 350 Balance 2430 / 2630 350 / 350 Lab / Micro Data 07/29/23 06:20 07/29/23 06:20 Labs: Laboratory Results - last 24 hr 07/28/23 06:15: B-Natriuretic Peptide 232.8 H 07/29/23 06:20: WBC 5.3, RBC 3.85 L, Hgb 10.5 L, Hct 33.8 L, MCV 87.8, MCH 27.3,MCHC 31.1 L, RDW Std Deviation 48.2 H, RDW Coeff of Rani 14.9 H, Plt Count 180, MPV 9.8, Immature Gran % (Auto) 0.900, Neut % (Auto) 69.9, Lymph % (Auto) 17.9 L, [place] % (Auto) 10.9 H, Eos % (Auto) 0.2, Baso % (Auto) 0.2, Absolute Neuts (auto) 3.7, Absolute Lymphs (auto) 0.95, Nucleated RBC % 0, ESR 57 H, Sodium 138, Potassium 3.7, Chloride 106, Carbon Dioxide 27.0, Anion Gap 5, BUN 10, Creatinine 0.72, Estim Creat Clear Calc 76.24, Est GFR (MDRD) Af Amer 107, Est GFR (MDRD) Non-Af 89, BUN/Creatinine Ratio 13.8, Glucose 109 H, Calcium 8.7, C-React Prot Ext Range 164.00 H Micro: Microbiology 07/25/23 16:14 Blood Culture (Wb) - Anticubital Left Blood Culture - Preliminary No growth in 5 days. 07/25/23 16:07 Blood Culture (Wb) - Anticubital Right Blood Culture - Preliminary No growth in 5 days. Radiography Diagnostic Testing: Radiology Impression Chest X-Ray 07/28/23 15:37 IMPRESSION: Cardiomegaly and mild pulmonary vascular congestion. Electronically Signed: Yamile Cantu MD at 16:28 EDT , Physical Exam Narrative General: Alert, oriented, no apparent distress HEENT: Atraumatic, normocephalic Eyes: Anicteric, normal conjunctiva, extraocular movements grossly intact Neck: Supple Respiratory: Clear to auscultation bilaterally, normal respiratory effort Cardiovascular: Regular rate and rhythm GI: Soft, nontender, nondistended Extremities: As below Musculoskeletal: Moving all extremities Neuro: No overt focal neurological deficits Skin: Primarily localized erythema on the left leg above the knee which is unchanged from yesterday, rest of legs are improving from erythema perspective, some chronic changes bilaterally Psych: Cooperative Assessment & Plan Assessment/Plan (1) Failure of outpatient treatment: (2) Cellulitis: (3) Hyperglycemia: PLAN: Plan Bilateral lower extremity cellulitis -Started on the right and has to the left -Mild systemic symptoms -Has had 2 rounds of outpatient Keflex and 2 rounds of outpatient doxycycline -Agree with Vanco and Zosyn for now -No wounds to culture -Elevate lower extremities -We will consult wound nurse to help with wrapping lower extremities -Had echocardiogram done on 06/19/2021 at [facility] that showed normal EF and no significant valvular disease however they were unable to estimate right ventricular systolic pressure -ESR and CRP are pending -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 Did have a lower extremity Doppler 07/08/2023 on the right side which demonstrated no right lower extremity DVT. Patient has fever of 100.8 and feels cold, blood culture was unable to be sent yesterday, will repeat cultures and will repeat labs as well to verify patient is not worsening. Patient does not think her legs feel worse she just does not think they feel much better yet, no pain when resting, legs marked. Continue abx at this time -07/26: CRP stabilized and ESR trending down, no wound culture however blood cultures pending, continue to monitor improvement, BP variable but MAP adequate,will give small bolus of fluids and hold lisinopril, additionally given legs have improved significantly but has 1 localized area that is much slower to respond will obtain ultrasound to assess for area that may need drained -07/27: Blood cultures no growth to date, most patient cellulitis improved on thebroad-spectrum antibiotics however she still has the localized cellulitic area on left thigh without significant improvement, CRP still remains significantly elevated. Ultrasound without drainable abscess. Will consult ID for additionalinput given patient has area that is not responding to antibiotics as the rest of leg did -07/28: Patient switched to Rocephin, may need amoxicillin prophylaxis on a longer-term basis, ID continue to follow, patient still having significant enough pain she is not yet ready for discharge -07/29: ESR and CRP both increased and patient still with erythema and pain, she is on Rocephin and ID is following, appreciate ID recommendations, cultures no growth to date Shortness of breath -Patient was complaining of having difficulty taking a deep breath and feeling more short of breath on exertion, she has gotten fluids with her antibiotics andfluids in general given her infection since admission, x-ray showed cardiomegalyand some pulmonary congestion and BNP was 232 -Patient given 20 IV Lasix -We will obtain echocardiogram Hyperglycemia -Mild -Check hemoglobin A1c with infection -No history of diabetes -07/25: Hemoglobin A1c 5.9, mildly elevated, would benefit from weight loss and lifestyle changes MIGUEL/obesity hypoventilation syndrome -Continue home NIPPV -Follows with Dr. Johnson History of iron deficiency anemia -Hemoglobin stable -Continue home iron supplementation Hypertension -Continue home lisinopril GERD -PPI Depression -Continue home Effexor Osteoarthritis -Scheduled Tylenol Super morbid obesity -BMI 78.5 -Recommend weight loss -Complicates treatment, prognosis, outcomes DVT prophylaxis -Lovenox subcu 40 twice daily CODE STATUS -Full code as per discussion on admission Time spent in the patient's overall evaluation,decision-making process, review of diagnostic data, adjustment of management, discussion with other providers, nursing nursing and ancillary staff involved in patient's care documentation, 36minutes Charges/Coding Visit Charges Inpatient E&M: 17070 Subs Hosp L2 07/29/23 0914 <Electronically signed by Betty Calvin MD> Cosigner Signature (if applicable): CC: ~ Signed [facility] Work Phone: 1(141) 488-526908-29-2023 Progress note Author Betty Calvin [facility] July 28, 2023 1:16pm Note Date/Time July 28, 2023 1: 16pm [facility] Medical Records Department [address] [place] [address] Progress Note - Hospitalist 07/28/23 1313 MR#: [id number] Acct: [id number] Name: JESUSITA ENGLAND Rep #:[id number] : 1970 53 From: Betty Calvin MD PCP: VJ Maloney Status:ADM IN Location: [place] [address]-1 Reason for Visit Reason for Visit: Diagnoses Obesity, unspecified (07/25/23) Lymphedema, not elsewhere classified (07/25/23) Cellulitis, unspecified (07/25/23) Hyperglycemia, unspecified (07/25/23) Other specified health status (07/25/23) Subjective Subjective Patient still having pain localized over the area above her left knee Objective Data Objective Data Vital Signs: Vital Signs Temp Pulse Resp BP Pulse Ox O2 Del Method 98.5 F 68 18 116/62 95 Room Air 07/28/23 09:49 07/28/23 09:49 07/28/23 09:49 07/28/23 09:49 07/28/23 09:49 07/28/23 09:50 Oxygen Delivery Method Room Air Weight: 223.6 kg Body Mass Index (BMI) 82.1 Intake & Output: Intake and Output for Last 24 Hours 07/26/23 07/27/23 07/28/23 23:59 23:59 23:59 Intake Total 3280.00 / 3630.00 2430 / 2630 350 / 350 Balance 3280.00 / 3630.00 2430 / 2630 350 / 350 Lab / Micro Data 07/28/23 06:15 07/28/23 06:15 Labs: Laboratory Results - last 24 hr 07/28/23 06:15: WBC 5.9, RBC 3.87 L, Hgb 10.5 L, Hct 33.8 L, MCV 87.3, MCH 27.1,MCHC 31.1 L, RDW Std Deviation 48.9 H, RDW Coeff of Rani 15.2 H, Plt Count 175, MPV 10.3, Immature Gran % (Auto) 0.700, Neut % (Auto) 71.0 H, Lymph % (Auto) 16.6 L, [place] % (Auto) 11.3 H, Eos % (Auto) 0.2, Baso % (Auto) 0.2, Absolute Neuts (auto) 4.2, Absolute Lymphs (auto) 0.97, Nucleated RBC % 0, Sodium 138, Potassium 3.9, Chloride 107, Carbon Dioxide 25.0, Anion Gap 6, BUN 7, Creatinine0.66, Estim Creat Clear Calc 83.17, Est GFR (MDRD) Af Amer 118, Est GFR (MDRD) Non-Af 98, BUN/Creatinine Ratio 10.5, Glucose 106, Calcium 8.8 Physical Exam Narrative General: Alert, oriented, no apparent distress HEENT: Atraumatic, normocephalic Eyes: Anicteric, normal conjunctiva, extraocular movements grossly intact Neck: Supple Respiratory: Clear to auscultation bilaterally, normal respiratory effort Cardiovascular: Regular rate and rhythm GI: Soft, nontender, nondistended Extremities: As below Musculoskeletal: Moving all extremities Neuro: No overt focal neurological deficits Skin: Primarily localized erythema on the left leg above the knee rest of legs are improving from erythema perspective, some chronic changes bilaterally Psych: Cooperative Assessment & Plan Assessment/Plan (1) Failure of outpatient treatment: (2) Cellulitis: (3) Hyperglycemia: PLAN: Plan Bilateral lower extremity cellulitis -Started on the right and has to the left -Mild systemic symptoms -Has had 2 rounds of outpatient Keflex and 2 rounds of outpatient doxycycline -Agree with Vanco and Zosyn for now -No wounds to culture -Elevate lower extremities -We will consult wound nurse to help with wrapping lower extremities -Had echocardiogram done on 06/19/2021 at [facility] that showed normal EF and no significant valvular disease however they were unable to estimate right ventricular systolic pressure -ESR and CRP are pending -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 Did have a lower extremity Doppler 07/08/2023 on the right side which demonstrated no right lower extremity DVT. Patient has fever of 100.8 and feels cold, blood culture was unable to be sent yesterday, will repeat cultures and will repeat labs as well to verify patient is not worsening. Patient does not think her legs feel worse she just does not think they feel much better yet, no pain when resting, legs marked. Continue abx at this time -07/26: CRP stabilized and ESR trending down, no wound culture however blood cultures pending, continue to monitor improvement, BP variable but MAP adequate,will give small bolus of fluids and hold lisinopril, additionally given legs have improved significantly but has 1 localized area that is much slower to respond will obtain ultrasound to assess for area that may need drained -07/27: Blood cultures no growth to date, most patient cellulitis improved on thebroad-spectrum antibiotics however she still has the localized cellulitic area on left thigh without significant improvement, CRP still remains significantly elevated. Ultrasound without drainable abscess. Will consult ID for additionalinput given patient has area that is not responding to antibiotics as the rest of leg did -07/28: Patient switched to Rocephin, may need amoxicillin prophylaxis on a longer-term basis, ID continue to follow, patient still having significant enough pain she is not yet ready for discharge Hyperglycemia -Mild -Check hemoglobin A1c with infection -No history of diabetes -07/25: Hemoglobin A1c 5.9, mildly elevated, would benefit from weight loss and lifestyle changes MIGUEL/obesity hypoventilation syndrome -Continue home NIPPV -Follows with Dr. Johnson History of iron deficiency anemia -Hemoglobin stable -Continue home iron supplementation Hypertension -Continue home lisinopril GERD -PPI Depression -Continue home Effexor Osteoarthritis -Scheduled Tylenol Super morbid obesity -BMI 78.5 -Recommend weight loss -Complicates treatment, prognosis, outcomes DVT prophylaxis -Lovenox subcu 40 twice daily CODE STATUS -Full code as per discussion on admission Time spent in the patient's overall evaluation,decision-making process, review of diagnostic data, adjustment of management, discussion with other providers, nursing nursing and ancillary staff involved in patient's care documentation, 36minutes Charges/Coding Visit Charges Inpatient E&M: 99309 Subs Hosp L2 07/28/23 1316 <Electronically signed by Betty aClvin MD> Cosigner Signature (if applicable): CC: ~ Signed ADDENDUM by Dr. Betty Calvin MD on 07/28/23 at 1316 Visit Charges Inpatient E&M: 30216 Subs Hosp L2 07/28/23 1316<Electronically signed by Betty Calvin MD> Cosigner Signature (if applicable): cc: ~* Signed [facility] Work Phone: 1(459) 260-737108-29-2023 Progress note Author Wander Garcia [facility] July 28, 2023 10:30am Note Date/Time July 28, 2023 10 :30am [facility] Medical Records Department [address] [place] [address] Progress Note - Infect Disease 07/28/23 1028 MR#: [id number] Acct: [id number] Name: JESUSITA ENGLAND Rep #:[id number] : 1970 53 From: Wander bledsoe MD PCP: VJ Maloney Status:ADM IN Location: [facility]-2 Physical Exam Narrative Feeling about the same, some mild chill overnight. LLE still sore. Const alert and no apparent distress General Appearance: cooperative Resp normal air movement and clear to auscultation bilaterally Cardio regular rate and regular rhythm GI soft to palpation, non-tender and non-distended Extremity General Extremity: edema Skin Skin Narrative: RLE cellulitis fading, LLE about the same ID ID: Route of nutrition/ use of supplements: [] Nutritional Intake: [] IV Site: [] Galeano Catheter: [] Assessment & Plan Assessment/Plan (1) Lymphedema associated with obesity: (2) Cellulitis: PLAN: recurrent RLE cellulitis, now developed LLE cellulitis on outpt doxy/keflex. Improving here on vanc/zosyn. 07/27 narrowed ceftriaxone for nonpurulent cellulitis, will need to consider senior care amox as prophylaxis and referral to edema clinic for prevention. Will add antifungal powder to skin folds Will follow 07/28/23 1030 <Electronically signed by Wander Garcia MD> Cosigner Signature (if applicable): CC: ~ Signed [facility] Work Phone: 1(559) 154-489508-28-2023 Consult note Author Wander Limonninger [facility] July 27, 2023 2:03pm Note Date/Time July 27, 2023 2: 03pm [facility] Medical Records Department [address] [place] [address] Consultation - Infectious Dx 07/27/23 1358 MR#: [id number] Acct: [id number] Name: JESUSITA ENGLAND Rep #:[id number] : 1970 53 From: Wander bledsoe MD PCP: VJ Maloney Status:ADM IN Location: [place] [address] Assessment & Plan Assessment/Plan (1) Lymphedema associated with obesity: (2) Cellulitis: PLAN: recurrent RLE cellulitis, now developed LLE cellulitis on outpt doxy/keflex. Improving here on vanc/zosyn. Will narrow to ceftriaxone for nonpurulent cellulitis, will need to consider senior care amox as prophylaxis and referral to edema clinic for prevention. Will follow, thank you HPI Consult Data Date of Consult: 07/27/23 HPI Narrative Reason for Consultation: recurrent cellulitis HPI Narrative: JESUSITA ENGLAND, is a 53 F with h/o chronic edema, presented 07/25 with recurrent RLEcellulitis. Has been on 10-14 days of abx every month since January due to recurrent RLE cellulitis. Most courses with keflex, sx improve briefly. Over past month has been on keflex again, then doxy added two weeks ago, then over past few days prior to admit, LLE started to rapidly progressive pain, redness, swelling. No drainage. Some associated fever and chills. Admitted here on vanc/zosyn, cellulitis improving. Full ROS performed and neg except as noted above. [facility] Medical History Abnormal echocardiogram Anxiety Ascending aorta dilatation Asthma Depression GERD without esophagitis Heel spur IBS (irritable bowel syndrome) Insomnia Osteoarthritis (arthritis due to wear and tear of joints) Home Medications acetaminophen 500 mg capsule 1,000 mg PO Q6H PRN Pain 07/11/21 [History Last Taken Unknown] aspirin 81 mg tablet,delayed release (Adult Low Dose Aspirin) 81 mg PO DAILY 07/11/21 [History Last Taken Unknown] ascorbic acid (vitamin C) 500 mg tablet 500 mg PO 1200 #0 tabs 08/01/21 [Rx Last Taken Unknown] ferrous sulfate 325 mg (65 mg iron) tablet (FeroSul) 325 mg PO DAILY@1200 #30 tabs 08/01/21 [Rx Last Taken Unknown] magnesium oxide 400 mg PO DAILY #30 caps 08/01/21 [Rx Last Taken Unknown] venlafaxine 75 mg capsule,extended release 24 hr (Effexor XR) 225 mg (3 x 75 mg)PO DAILY #90 caps 09/03/21 [Rx Last Taken Unknown] Lactobacillus acidophilus (Acidophilus capsule) 10 mg PO DAILY 07/24/23 [History Last Taken Unknown] cholestyramine (with sugar) 4 gram oral powder ea 07/24/23 [History Last Taken Unknown] doxycycline hyclate 100 mg capsule 100 mg PO BID 07/24/23 [History Last Taken Unknown] lisinopril 10 mg tablet 10 mg PO DAILY 07/24/23 [History Last Taken Unknown] omeprazole 40 mg capsule,delayed release 40 mg PO DAILY 07/24/23 [History Last Taken Unknown] pediatric multivitamin .Route 07/24/23 [History Last Taken Unknown] Allergy/AdvReac Type Severity Reaction Status Date / Time adhesive tape AdvReac Unknown Other Verified 07/24/23 22:53 Family History Mother Alzheimer's dementia Surgical History H/O foot surgery History of cholecystectomy History of hip surgery Social History household members: spouse housing: house number of children: 1 current occupational status: employed 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 For lunch she has a bowl of soup and crackers which she takes to work. Sometimes has pretzels for a snack. Eats lunch at 12:30- 1 and does not get home until 7 PM and then she is starved. Her sometimes cooks and it is usually not healthy and may include pizza, hotdogs, fast food. Does not plan meals and her hisband is not supportive of healthy eating. He is a little overweight and likes to eat junk. Physical Exam Const alert, oriented x3 and no apparent distress General Appearance: cooperative HEENT normocephalic and head/scalp atraumatic Eyes PERRL and EOMs intact bilaterally Neck supple and No nodes Resp normal air movement and clear to auscultation bilaterally Cardio regular rate and regular rhythm GI soft to palpation, non-tender and non-distended Extremity General Extremity: edema Skin Skin Narrative: BLE erythema, mild redness and induration Neuro CN's II-XII intact bilaterally Lab / Micro Data Attestation: I reviewed the patient's lab results. 07/27/23 05:26 07/27/23 05:26 Labs: Laboratory Results - last 24 hr 07/26/23 15:10: S.aureus Protein A PCR POSITIVE H, MRSA (PCR) Negative 07/27/23 05:26: WBC 6.4, RBC 3.78 L, Hgb 10.3 L, Hct 33.6 L, MCV 88.9, MCH 27.2,MCHC 30.7 L, RDW Std Deviation 50.8 H, RDW Coeff of Rani 15.5 H, Plt Count 163, MPV 10.2, Immature Gran % (Auto) 0.600, Neut % (Auto) 73.7 H, Lymph % (Auto) 14.6 L, [place] % (Auto) 10.7 H, Eos % (Auto) 0.2, Baso % (Auto) 0.2, Absolute Neuts (auto) 4.7, Absolute Lymphs (auto) 0.93, Nucleated RBC % 0, ESR 47 H, Sodium 138, Potassium 3.9, Chloride 108 H, Carbon Dioxide 27.0, Anion Gap 3 L, BUN 8, Creatinine 0.72, Estim Creat Clear Calc 76.24, Est GFR (MDRD) Af Amer 108, Est GFR (MDRD) Non-Af 89, BUN/Creatinine Ratio 11.1, Glucose 110 H, Calcium8.1 L, C-React Prot Ext Range 138.00 H Radiology Impression Soft Tissue Ultrasound 07/26/23 11:42 IMPRESSION: Subcutaneous edema without evidence of abscess. Electronically Signed: Tacos Liz MD at 10:13 EDT Reading Location ID and State: [address] [place] [address] , Service support , 07/27/23 1403 <Electronically signed by Wander Garcia MD> Cosigner Signature (if applicable): CC: Dr. Adrianna Mejia DO; Dr. Wander Garcia MD; VJ Maloney~ Signed [facility] Work Phone: 1(466) 806-329108-28-2023 Progress note Author Betty Calvin [facility] July 27, 2023 11:56am Note Date/Time July 27, 2023 9: 38am [facility] Medical Records Department [address] [place] [address] Progress Note - Hospitalist 07/27/23 0936 MR#: [id number] Acct: [id number] Name: JESUSITA ENGLAND Rep #:[id number] : 1970 53 From: Betty Calvin MD PCP: VJ Maloney Status:ADM IN Location: MS3 [id number] Reason for Visit Reason for Visit: Diagnoses Cellulitis, unspecified (07/25/23) Hyperglycemia, unspecified (07/25/23) Other specified health status (07/25/23) Subjective Subjective Still has can tenderness making it hard to sit over the cellulitic area above the left knee Objective Data Objective Data Vital Signs: Vital Signs Temp Pulse Resp BP Pulse Ox O2 Del Method 98 F 86 18 137/72 H 91 Room Air 07/27/23 08:20 07/27/23 08:20 07/27/23 08:20 07/27/23 08:20 07/27/23 08:53 07/27/23 08:53 Oxygen Delivery Method Room Air Weight: 223.6 kg Body Mass Index (BMI) 82.1 Intake & Output: Intake and Output for Last 24 Hours 07/25/23 07/26/23 07/27/23 23:59 23:59 23:59 Intake Total 2640 / 2940 3280.00 / 3630.00 1930 / 1930 Balance 2640 / 2940 3280.00 / 3630.00 1930 / 1930 Lab / Micro Data 07/27/23 05:26 07/27/23 05:26 Labs: Laboratory Results - last 24 hr 07/26/23 15:10: S.aureus Protein A PCR POSITIVE H, MRSA (PCR) Negative 07/27/23 05:26: WBC 6.4, RBC 3.78 L, Hgb 10.3 L, Hct 33.6 L, MCV 88.9, MCH 27.2,MCHC 30.7 L, RDW Std Deviation 50.8 H, RDW Coeff of Rani 15.5 H, Plt Count 163, MPV 10.2, Immature Gran % (Auto) 0.600, Neut % (Auto) 73.7 H, Lymph % (Auto) 14.6 L, [place] % (Auto) 10.7 H, Eos % (Auto) 0.2, Baso % (Auto) 0.2, Absolute Neuts (auto) 4.7, Absolute Lymphs (auto) 0.93, Nucleated RBC % 0, ESR 47 H, Sodium 138, Potassium 3.9, Chloride 108 H, Carbon Dioxide 27.0, Anion Gap 3 L, BUN 8, Creatinine 0.72, Estim Creat Clear Calc 76.24, Est GFR (MDRD) Af Amer 108, Est GFR (MDRD) Non-Af 89, BUN/Creatinine Ratio 11.1, Glucose 110 H, Calcium8.1 L, C-React Prot Ext Range 138.00 H Physical Exam Narrative General: Alert, oriented, no apparent distress HEENT: Atraumatic, normocephalic Eyes: Anicteric, normal conjunctiva, extraocular movements grossly intact Neck: Supple Respiratory: Clear to auscultation bilaterally, normal respiratory effort Cardiovascular: Regular rate and rhythm GI: Soft, nontender, nondistended Extremities: As below Musculoskeletal: Moving all extremities Neuro: No overt focal neurological deficits Skin: Primarily localized erythema on the left leg above the knee still within the margins of the outline without fluctuance but is tender, rest of legs are improving from erythema perspective, some chronic changes bilaterally Psych: Cooperative Assessment & Plan Assessment/Plan (1) Failure of outpatient treatment: (2) Cellulitis: (3) Hyperglycemia: PLAN: Plan Bilateral lower extremity cellulitis -Started on the right and has to the left -Mild systemic symptoms -Has had 2 rounds of outpatient Keflex and 2 rounds of outpatient doxycycline -Agree with Vanco and Zosyn for now -No wounds to culture -Elevate lower extremities -We will consult wound nurse to help with wrapping lower extremities -Had echocardiogram done on 06/19/2021 at [facility] that showed normal EF and no significant valvular disease however they were unable to estimate right ventricular systolic pressure -ESR and CRP are pending -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 Did have a lower extremity Doppler 07/08/2023 on the right side which demonstrated no right lower extremity DVT. Patient has fever of 100.8 and feels cold, blood culture was unable to be sent yesterday, will repeat cultures and will repeat labs as well to verify patient is not worsening. Patient does not think her legs feel worse she just does not think they feel much better yet, no pain when resting, legs marked. Continue abx at this time -07/26: CRP stabilized and ESR trending down, no wound culture however blood cultures pending, continue to monitor improvement, BP variable but MAP adequate,will give small bolus of fluids and hold lisinopril, additionally given legs have improved significantly but has 1 localized area that is much slower to respond will obtain ultrasound to assess for area that may need drained -07/27: Blood cultures no growth to date, most patient cellulitis improved on thebroad-spectrum antibiotics however she still has the localized cellulitic area on left thigh without significant improvement, CRP still remains significantly elevated. Ultrasound without drainable abscess. Will consult ID for additionalinput given patient has area that is not responding to antibiotics as the rest of leg did Hyperglycemia -Mild -Check hemoglobin A1c with infection -No history of diabetes -07/25: Hemoglobin A1c 5.9, mildly elevated, would benefit from weight loss and lifestyle changes MIGUEL/obesity hypoventilation syndrome -Continue home NIPPV -Follows with Dr. Johnson History of iron deficiency anemia -Hemoglobin stable -Continue home iron supplementation Hypertension -Continue home lisinopril GERD -PPI Depression -Continue home Effexor Osteoarthritis -Scheduled Tylenol Super morbid obesity -BMI 78.5 -Recommend weight loss -Complicates treatment, prognosis, outcomes DVT prophylaxis -Lovenox subcu 40 twice daily CODE STATUS -Full code as per discussion on admission Charges/Coding Visit Charges Inpatient E&M: 27732 Subs Hosp L2 07/27/23 1156 <Electronically signed by Betty Calvin MD> Cosigner Signature (if applicable): CC: ~ Signed [facility] Work Phone: 1(288) 250-307108-27-2023 Progress note Author Betty Calvin [facility] July 26, 2023 11:44am Note Date/Time July 26, 2023 8: 54am [facility] Medical Records Department [address] [place] [id number] Progress Note - Hospitalist 07/26/23 0850 MR#: [id number] Acct: [id number] Name: JESUSITA ENGLAND Rep #:[id number] : 1970 53 From: Betty Calvin MD PCP: VJ Maloney Status:ADM IN [id number] Reason for Visit Reason for Visit: Diagnoses Cellulitis, unspecified (07/25/23) Hyperglycemia, unspecified (07/25/23) Other specified health status (07/25/23) Subjective Subjective Patient is feeling better than yesterday, still some pain primarily in the mid left leg but has not been feeling the chills, follow-up with dizzy earlier this morning that is resolved Objective Data Objective Data Vital Signs: Vital Signs Temp Pulse Resp BP Pulse Ox O2 Del Method 97.8 F 80 18 98/50 L 97 CPAP 07/26/23 02:00 07/26/23 02:00 07/26/23 02:00 07/26/23 02:00 07/26/23 02:00 07/26/23 02:00 Oxygen Delivery Method CPAP Weight: 223.6 kg Body Mass Index (BMI) 82.1 Intake & Output: Intake and Output for Last 24 Hours 07/24/23 07/25/23 07/26/23 23:59 23:59 23:59 Intake Total 2640 / 2940 1140 / 1140 Balance 2640 / 2940 1140 / 1140 Lab / Micro Data 07/26/23 02:42 07/26/23 02:42 Labs: Laboratory Results - last 24 hr 07/25/23 16:07: WBC 8.9, RBC 4.21, Hgb 11.6 L, Hct 36.5 L, MCV 86.7, MCH 27.6, MCHC 31.8 L, RDW Std Deviation 49.3 H, RDW Coeff of Rani 15.5 H, Plt Count 209, MPV 10.1, Immature Gran % (Auto) 0.600, Neut % (Auto) 84.5 H, Lymph % (Auto) 8.3L, [place] % (Auto) 6.5, Eos % (Auto) 0.0, Baso % (Auto) 0.1, Absolute Neuts (auto)7.5, Absolute Lymphs (auto) 0.74 L, Nucleated RBC % 0, ESR 50 H, Sodium 135 L, Potassium 3.9, Chloride 105, Carbon Dioxide 26.0, Anion Gap 4 L, BUN 14, Creatinine 0.83, Estim Creat Clear Calc 66.13, Est GFR (MDRD) Af Amer 91, Est GFR (MDRD) Non-Af 75, BUN/Creatinine Ratio 16.8, Glucose 102, Lactic Acid 1.5, Calcium 8.9, Total Bilirubin 0.60, AST 14 L, ALT 20, Alkaline Phosphatase 71, C-React Prot Ext Range 141.00 H, Total Protein 7.0, Albumin 3.1 L, Globulin 3.9, Albumin/Globulin Ratio 0.8 L, Procalcitonin 0.10 H 07/26/23 02:42: WBC 6.2, RBC 3.94 L, Hgb 11.0 L, Hct 34.8 L, MCV 88.3, MCH 27.9,MCHC 31.6 L, RDW Std Deviation 50.8 H, RDW Coeff of Rani 15.6 H, Plt Count 170, MPV 9.5, Immature Gran % (Auto) 0.600, Neut % (Auto) 71.0 H, Lymph % (Auto) 17.4L, [place] % (Auto) 10.6 H, Eos % (Auto) 0.2, Baso % (Auto) 0.2, Absolute Neuts (auto) 4.4, Absolute Lymphs (auto) 1.07, Nucleated RBC % 0, ESR 37 H, Sodium 139, Potassium 4.0, Chloride 108 H, Carbon Dioxide 25.0, Anion Gap 6, BUN 10, Creatinine 0.75, Estim Creat Clear Calc 73.19, Est GFR (MDRD) Af Amer 104, Est GFR (MDRD) Non-Af 86, BUN/Creatinine Ratio 13.4, Glucose 108 H, Calcium 8.3 L, C-React Prot Ext Range 142.00 H, Vancomycin Trough 15.1 H Physical Exam Narrative General: Alert, oriented, no apparent distress HEENT: Atraumatic, normocephalic Eyes: Anicteric, normal conjunctiva, extraocular movements grossly intact Neck: Supple Respiratory: Clear to auscultation bilaterally, normal respiratory effort Cardiovascular: Regular rate and rhythm GI: Soft, nontender, nondistended Extremities: As below Musculoskeletal: Moving all extremities Neuro: No overt focal neurological deficits Skin: Primarily localized erythema on the left leg above the knee still within the margins of the outline without fluctuance but is tender, rest of legs are improving from erythema perspective, some chronic changes bilaterally Psych: Cooperative Assessment & Plan Assessment/Plan (1) Failure of outpatient treatment: (2) Cellulitis: (3) Hyperglycemia: PLAN: Plan Bilateral lower extremity cellulitis -Started on the right and has to the left -Mild systemic symptoms -Has had 2 rounds of outpatient Keflex and 2 rounds of outpatient doxycycline -Agree with Robert for now -No wounds to culture -Elevate lower extremities -We will consult wound nurse to help with wrapping lower extremities -Had echocardiogram done on 06/19/2021 at [facility] that showed normal EF and no significant valvular disease however they were unable to estimate right ventricular systolic pressure -ESR and CRP are pending -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 Did have a lower extremity Doppler 07/08/2023 on the right side which demonstrated no right lower extremity DVT. Patient has fever of 100.8 and feels cold, blood culture was unable to be sent yesterday, will repeat cultures and will repeat labs as well to verify patient is not worsening. Patient does not think her legs feel worse she just does not think they feel much better yet, no pain when resting, legs marked. Continue abx at this time -07/26: CRP stabilized and ESR trending down, no wound culture however blood cultures pending, continue to monitor improvement, BP variable but MAP adequate,will give small bolus of fluids and hold lisinopril, additionally given legs have improved significantly but has 1 localized area that is much slower to respond will obtain ultrasound to assess for area that may need drained Hyperglycemia -Mild -Check hemoglobin A1c with infection -No history of diabetes -07/25: Hemoglobin A1c 5.9, mildly elevated, would benefit from weight loss and lifestyle changes MIGUEL/obesity hypoventilation syndrome -Continue home NIPPV -Follows with Dr. Johnson History of iron deficiency anemia -Hemoglobin stable -Continue home iron supplementation Hypertension -Continue home lisinopril GERD -PPI Depression -Continue home Effexor Osteoarthritis -Scheduled Tylenol Super morbid obesity -BMI 78.5 -Recommend weight loss -Complicates treatment, prognosis, outcomes DVT prophylaxis -Lovenox subcu 40 twice daily CODE STATUS -Full code as per discussion on admission Time spent in the patient's overall evaluation,decision-making process, review of diagnostic data, adjustment of management, discussion with other providers, nursing nursing and ancillary staff involved in patient's care documentation, 36minutes Charges/Coding Visit Charges Inpatient E&M: 08588 Subs Hosp L2 07/26/23 1144 <Electronically signed by Betty Calvin MD> Cosigner Signature (if applicable): CC: ~ Signed [facility] Work Phone: [phone]) 777-224608-27-2023 Consult note Author Cole Kelly [facility] July 26, 2023 3:26am Note Date/Time July 26, 2023 3: 26am [facility] Medical Records Department [address] [place] [address] Pharmacokinetic/Renal -Consult 07/26/23324 MR#: [id number] Acct: [id number] Name: JESUSITA ENGLAND Rep #:[id number] : 1970 53 From: Cole Melton od PCP: VJ Maloney Status:ADM IN Y Location: [place] [id number] Consult Antibiotic Management Pharmacy has been consulted to manage selected antiobiotic: Vancomycin Type of Intervention Type of Consult: Follow-up Labs Labs: Vancomycin Trough 15.1 ug/mL (5.0-15.0) H 07/26/23 02:42 Pharmacy Plan for Drug Dosing Pharmacy Plan for Drug Dosing: Pharmacy Service will continue to monitor and adjust dosing as required. TROUGH 15.1 @ 8 HOURS. NO CHANGES, FOLLOW UP TROUGH IN 2 DAYS Follow-Up Labs Follow-Up Labs: Trough: Vancomycin Date/Time Labs Ordered Labs to be done on [date and time ordered]: 07/28 @ 0730 07/26/23325 <Electronically signed by Cole seth> Date _ Cole Pino Signature (if applicable): Date CC: ~ Signed [facility] Work Phone: 1(406) 247-190308-26-2023 Progress note Author Betty Calvin [facility] July 25, 2023 2:12pm Note Date/Time July 25, 2023 8: 31am [facility] Medical Records Department [address] [place] [address] Progress Note - Hospitalist 07/25/23826 MR#: [id number] Acct: [id number] Name: JESUSITA ENGLAND Rep #:[id number] : 1970 53 From: Betty Calvin MD PCP: VJ Maloney Status:ADM IN Location: [facility] [id number] Reason for Visit Reason for Visit: Diagnoses Cellulitis, unspecified (07/25/23) Hyperglycemia, unspecified (07/25/23) Other specified health status (07/25/23) Subjective Subjective Patient laying on stomach in bed with CPAP on, reports she feels cold which is unusual for her. Legs are not hurting when she is laying there but do still hurt when she moves around, does not notice much of a difference yet. Reports having some belching as well Objective Data Objective Data Vital Signs: Vital Signs Temp Pulse Resp BP Pulse Ox O2 Del Method 98.0 F 76 18 156/65 H 97 CPAP 07/25/23 03:44 07/25/23 03:44 07/25/23 03:44 07/25/23 03:44 07/25/23 03:44 07/25/23 03:44 Oxygen Delivery Method CPAP Weight: 223.6 kg Body Mass Index (BMI) 82.1 Intake & Output: Intake and Output for Last 24 Hours 07/23/23 07/24/23 07/25/23 23:59 23:59 23:59 Intake Total 740 / 740 Balance 740 / 740 Lab / Micro Data 07/25/23 04:45 07/25/23 04:45 Labs: Laboratory Results - last 24 hr 07/24/23 23:22: WBC 11.1 H, RBC 4.40, Hgb 12.2, Hct 38.0, MCV 86.4, MCH 27.7, MCHC 32.1, RDW Std Deviation 48.1 H, RDW Coeff of Rani 15.2 H, Plt Count 209, MPV9.2, Immature Gran % (Auto) 0.600, Neut % (Auto) 84.5 H, Lymph % (Auto) 8.1 L, [place] % (Auto) 6.7, Eos % (Auto) 0.0, Baso % (Auto) 0.1, Absolute Neuts (auto) 9.4 H, Absolute Lymphs (auto) 0.90, Nucleated RBC % 0, ESR 35 H, Sodium 138, Potassium 4.2, Chloride 107, Carbon Dioxide 28.0, Anion Gap 3 L, BUN 20 H, Creatinine 0.86, Estim Creat Clear Calc 66.51, Est GFR (MDRD) Af Amer 89, Est GFR (MDRD) Non-Af 73, BUN/Creatinine Ratio 23.4 H, Glucose 118 H, Hemoglobin A1c5.9 H, Lactic Acid 1.6, Calcium 8.9, Total Bilirubin 0.30, AST 12 L, ALT 19, Alkaline Phosphatase 87, C- React Prot Ext Range 21.50 H, Total Protein 7.1, Albumin 3.2, Globulin 3.9, Albumin/Globulin Ratio 0.8 L 07/25/23 04:45: WBC 11.2 H, RBC 4.25, Hgb 11.7 L, Hct 37.0, MCV 87.1, MCH 27.5, MCHC 31.6 L, RDW Std Deviation 49.1 H, RDW Coeff of Rani 15.4 H, Plt Count 203, MPV 9.8, Immature Gran % (Auto) 0.600, Neut % (Auto) 89.3 H, Lymph % (Auto) 4.5 L, [place] % (Auto) 5.5, Eos % (Auto) 0.0, Baso % (Auto) 0.1, Absolute Neuts (auto)10.0 H, Absolute Lymphs (auto) 0.50 L, Nucleated RBC % 0, Differential Comment SCANNED, Sodium 140, Potassium 4.3, Chloride 105, Carbon Dioxide 24.0, Anion Gap11, BUN 18, Creatinine 0.80, Estim Creat Clear Calc 68.61, Est GFR (MDRD) Af Amer 96, Est GFR (MDRD) Non-Af 79, BUN/Creatinine Ratio 22.5 H, Glucose 113 H, Calcium 8.6, Phosphorus 2.9, Magnesium 1.8, Total Bilirubin 0.60, AST 16, ALT 20, Alkaline Phosphatase 75, Total Protein 6.9, Albumin 3.1 L, Globulin 3.8, Albumin/Globulin Ratio 0.8 L, TSH 1.67 Physical Exam Narrative General: Alert, laying in bed, wakes up and interactive but does not feel well HEENT: Atraumatic, normocephalic Eyes: Anicteric, normal conjunctiva, extraocular movements grossly intact Neck: Supple Respiratory: Clear to auscultation bilaterally, normal respiratory effort Cardiovascular: Regular rate GI: Protuberant Extremities: Bilateral lower extremities erythematous primarily from below knee to ankle but also around outpouching above knee left greater than right with no fluctuance but there is warmth and blanching Musculoskeletal: Moving all extremities in bed Neuro: No overt focal neurological deficits Skin: Leg erythema as above Psych: Cooperative Assessment & Plan Assessment/Plan (1) Failure of outpatient treatment: (2) Cellulitis: (3) Hyperglycemia: PLAN: Plan Bilateral lower extremity cellulitis -Started on the right and has to the left -Mild systemic symptoms -Has had 2 rounds of outpatient Keflex and 2 rounds of outpatient doxycycline -Agree with Vanco and Zosyn for now -No wounds to culture -Elevate lower extremities -We will consult wound nurse to help with wrapping lower extremities -Had echocardiogram done on 06/19/2021 at [facility] that showed normal EF and no significant valvular disease however they were unable to estimate right ventricular systolic pressure -ESR and CRP are pending -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 Did have a lower extremity Doppler 07/08/2023 on the right side which demonstrated no right lower extremity DVT. Patient has fever of 100.8 and feels cold, blood culture was unable to be sent yesterday, will repeat cultures and will repeat labs as well to verify patient is not worsening. Patient does not think her legs feel worse she just does not think they feel much better yet, no pain when resting, legs marked. Continue abx at this time Hyperglycemia -Mild -Check hemoglobin A1c with infection -No history of diabetes -07/25: Hemoglobin A1c 5.9, mildly elevated, would benefit from weight loss and lifestyle changes MIGUEL/obesity hypoventilation syndrome -Continue home NIPPV -Follows with Dr. Johnson History of iron deficiency anemia -Hemoglobin stable -Continue home iron supplementation Hypertension -Continue home lisinopril GERD -PPI Depression -Continue home Effexor Osteoarthritis -Scheduled Tylenol Super morbid obesity -BMI 78.5 -Recommend weight loss -Complicates treatment, prognosis, outcomes DVT prophylaxis -Lovenox subcu 40 twice daily CODE STATUS -Full code as per discussion on admission 07/25/23 1412 <Electronically signed by Betty Calvin MD> Cosigner Signature (if applicable): CC: ~ Signed [facility] Work Phone: 1(216) [phone] Consult note Author Cole Kelly [facility] July 25, 2023 6:04am Note Date/Time July 25, 2023 6: 04am [facility] Medical Records Department [address] [place] [address] Pharmacokinetic/Renal -Consult 07/25/23603 MR#: [id number] Acct: [id number] Name: JESUSITA ENGLAND Rep #:[id number] : 1970 53 From: Cole Melton od PCP: VJ Maloney Status:ADM IN Y Location: [place] [address] Consult Antibiotic Management Pharmacy has been consulted to manage selected antiobiotic: Vancomycin Type of Intervention Type of Consult: New start Labs Labs: Sodium 138 mmol/L (136-145) 07/24/23 23:22 Potassium 4.2 mmol/L (3.5-5.1) 07/24/23 23:22 Chloride 107 mmol/L (98-107) 07/24/23 23:22 Carbon Dioxide 28.0 mmol/L (21.0-32.0) 07/24/23 23:22 Anion Gap 3 (5-15) L 07/24/23 23:22 BUN 20 mg/dL (7-18) H 07/24/23 23:22 Creatinine 0.86 mg/dL (0.55-1.02) 07/24/23 23:22 Est GFR (MDRD) Af Amer 89 mL/min (>60) 07/24/23 23:22 Est GFR (MDRD) Non-Af 73 mL/min (>60) 07/24/23 23:22 BUN/Creatinine Ratio 23.4 RATIO (10-20) H 07/24/23 23:22 Glucose 118 mg/dL (74-106) H 07/24/23 23:22 Goal Trough Goal Trough: 15-20 mcg/mL Pharmacy Plan for Drug Dosing Pharmacy Plan for Drug Dosing: Pharmacy Service will continue to monitor and adjust dosing as required. Follow-Up Labs Follow-Up Labs: Trough: Vancomycin Date/Time Labs Ordered Labs to be done on [date and time ordered]: 07/25 @ 2330 07/25/23 06 <Electronically signed by Cole seth> Date _ Cole Kelly Cosigner Signature (if applicable): Date CC: ~ Signed [facility] Work Phone: 1(218) 273-393008-26-2023 History and physical note Author Adrianna Mejia [facility] July 25, 2023 1:10am Note Date/Time July 25, 2023 12 :48am [facility] Medical Records Department [address] [place] [address] H&P Exam - Hospitalist 07/25/23 0044 MR#: [id number] Acct: [id number] Name: JESUSITA ENGLAND Rep #:[id number] : 1970 53 From: Adrianna Mejia DO PCP: VJ Maloney Status:ADM IN Location: [place] [address] HPI - General General Date of Admission: 07/25/23 Date of Service: 07/25/23 Chief Complaint: LLE Redness HPI Narrative JESUSITA ENGLAND, is a 53 F who presented to the emergency department at [facility] late in the evening on 07/24/2023 with new onset left lower extremity erythema. Patient has been battling right lower extremity cellulitis for about a month now. She was placed on Keflex x2 and doxycycline x2 courses but the erythema has persisted. She states the right side initially got better but her left side started this morning. Her right side looks worse now than it did yesterday as well. The erythema on the left lower extremity has been rapidly progressing. She does have a previous history of MRSA pneumonia and Staph hominis bacteremia. She does not have diabetes at baseline. She states she has had chills and a headache but no documented fever. Her legs are painful. Vital signs on presentation show a temperature of 98 degrees, heart rate 81, blood pressure 126/94, respiratory rate 18 oxygen saturations are 97% on room air. CBC shows a mild leukocytosis with a white count of 11.1. There is a leftshift with an 84.5% neutrophilia. Her chemistry panel was overall unremarkable other than mild glucose elevation with a blood sugar of 118. Liver functions normal. In the emergency department she was given vancomycin and Zosyn given outpatient failure of to oral antibiotics and request for admission was made. [facility] Medical History Abnormal echocardiogram Anxiety Ascending aorta dilatation Asthma Depression GERD without esophagitis Heel spur IBS (irritable bowel syndrome) Insomnia Osteoarthritis (arthritis due to wear and tear of joints) Home Medications acetaminophen 500 mg capsule 1,000 mg PO Q6H PRN Pain 07/11/21 [History Last Taken Unknown] aspirin 81 mg tablet,delayed release (Adult Low Dose Aspirin) 81 mg PO DAILY 07/11/21 [History Last Taken Unknown] ascorbic acid (vitamin C) 500 mg tablet 500 mg PO 1200 #0 tabs 08/01/21 [Rx Last Taken Unknown] ferrous sulfate 325 mg (65 mg iron) tablet (FeroSul) 325 mg PO DAILY@1200 #30 tabs 08/01/21 [Rx Last Taken Unknown] magnesium oxide 400 mg PO DAILY #30 caps 08/01/21 [Rx Last Taken Unknown] venlafaxine 75 mg capsule,extended release 24 hr (Effexor XR) 225 mg (3 x 75 mg)PO DAILY #90 caps 09/03/21 [Rx Last Taken Unknown] Lactobacillus acidophilus (Acidophilus capsule) 10 mg PO DAILY 07/24/23 [History Last Taken Unknown] cholestyramine (with sugar) 4 gram oral powder ea 07/24/23 [History Last Taken Unknown] doxycycline hyclate 100 mg capsule 100 mg PO BID 07/24/23 [History Last Taken Unknown] lisinopril 10 mg tablet 10 mg PO DAILY 07/24/23 [History Last Taken Unknown] omeprazole 40 mg capsule,delayed release 40 mg PO DAILY 07/24/23 [History Last Taken Unknown] pediatric multivitamin .Route 07/24/23 [History Last Taken Unknown] Allergy/AdvReac Type Severity Reaction Status Date / Time adhesive tape AdvReac Unknown Other Verified 07/24/23 22:53 Family History Mother Alzheimer's dementia Surgical History H/O foot surgery History of cholecystectomy History of hip surgery Social History household members: spouse housing: house number of children: 1 current occupational status: employed 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 For lunch she has a bowl of soup and crackers which she takes to work. Sometimes has pretzels for a snack. Eats lunch at 12:30- 1 and does not get home until 7 PM and then she is starved. Her sometimes cooks and it is usually not healthy and may include pizza, hotdogs, fast food. Does not plan meals and her hisband is not supportive of healthy eating. He is a little overweight and likes to eat junk. ROS Constitutional Constitutional: Reports chills; Denies anorexia, change in weight, fatigue, fever(s), malaise, night sweats, weakness or other Eyes Eyes: Denies blurry vision, change in eye color, change in vision, discharge from eye(s), double vision, erythema, eye pain, loss of vision or other ENT HEENT: Reports headache(s); Denies abnormal hearing, dysphagia, ear pain, epistaxis, hearing loss, nasal congestion, nasal discharge, post nasal drip, sinus pressure, sore throat or other Cardiovascular Cardiovascular: Denies chest pain, claudication, dyspnea on exertion, edema, lightheadedness, orthopnea, palpitations, paroxysmal nocturnal dyspnea, rapid heart rate, syncope or other Respiratory/Chest Respiratory/Chest: Denies cough, dyspnea, excessive phlegm production, hemoptysis, productive cough, shortness of breath at rest, shortness of breath with exertion, wheezing or other Gastrointestinal Gastrointestinal: Denies abdominal pain, coffee ground emesis, constipation, diarrhea, dyspepsia, hematemesis, hematochezia, loose stools, melena, nausea, vomiting or other Genitourinary Genitourinary: Denies burning urination, difficulty urinating, dysuria, hematuria, nocturia, urinary frequency, urinary hesitancy, urinary incontinence,urinary urgency or other Musculoskeletal Musculoskeletal: Reports other Details: Bilateral lower extremity leg pain Neurologic Neurologic: Reports headache(s); Denies abnormal gait, abnormal speech, confusion, disequilibrium, dizziness, focal weakness, numbness, paresthesias, seizure-like activity, seizures, syncope, tingling, tremor(s) or other Psychiatric Psychiatric: Reports depression; Denies anxiety, homicidal ideation, suicidal ideation or other Endocrine Endocrinology: Denies change in body appearance, cold intolerance, excessive sweating, heat intolerance, polydipsia, polyuria or other Hematologic/Lymphatic Hematologic/Lymphatic: Reports other Details: Chronic bilateral lower extremity lymphedema Allergic/Immunologic Allergic/Immunologic: Denies rhinitis, hives, eczemia, asthma or other Vital Signs Vital Signs Vital Signs: 07/24/23 22:50 07/25/23 00:37 07/25/23 00:38 Temperature 98.0 F 98.3 F Temperature Source Temporal Oral Pulse Rate 81 81 69 Respiratory Rate 18 16 16 Blood Pressure 126/94 H 136/80 H 136/80 H Blood Pressure Mean 104 98 98 Pulse Ox 97 97 96 Oxygen Delivery Method Room Air Room Air Room Air Weight Weight: 214.096 kg Body Mass Index (BMI) 78.5 Physical Exam Const alert, oriented x3, no apparent distress and well nourished; Negative for average body habitus or healthy appearing Constitutional Narrative: Super morbidly obese, pleasant, middle-aged white female, sitting up in bed, appears comfortable and nontoxic, family at bedside General Appearance: cooperative HEENT normocephalic, head/scalp atraumatic, hearing grossly normal bilaterally and moist oral mucous membranes HEENT Narrative: Mallampati 3, no thrush Resp normal respiratory effort, no retractions, no use of accessory muscles and clearto auscultation bilaterally Auscultation: Negative for rales, rhonchi or wheezes Cardio regular rate, regular rhythm, S1 normal heart sound, S2 normal heart sound, no murmurs, no rub, no gallops and no clicks GI normal to inspection, nondistended, normoactive bowel sounds, soft to palpation and non-tender Extremity Extremity Narrative: Bilateral lower extremity lymphedema noted, no cyanosis or clubbing Skin Skin Narrative: Bilateral lower extremity erythema worse on the left than the right, skin is warm to touch in the area that is erythematous, tender, area extends up into themedial thigh area bilaterally, patient does have some peeling skin on the right side but no open wounds noted Neuro oriented x3, CN's II-XII intact bilaterally, moves all extremities and no focal motor deficits Speech: speech normal Psych affect normal Psych Narrative: Pleasant, interacts appropriately Results Lab / Micro Data 07/24/23 23:22 07/24/23 23:22 Labs: Laboratory Results - last 24 hr 07/24/23 23:22: WBC 11.1 H, RBC 4.40, Hgb 12.2, Hct 38.0, MCV 86.4, MCH 27.7, MCHC 32.1, RDW Std Deviation 48.1 H, RDW Coeff of Rani 15.2 H, Plt Count 209, MPV9.2, Immature Gran % (Auto) 0.600, Neut % (Auto) 84.5 H, Lymph % (Auto) 8.1 L, [place] % (Auto) 6.7, Eos % (Auto) 0.0, Baso % (Auto) 0.1, Absolute Neuts (auto) 9.4 H, Absolute Lymphs (auto) 0.90, Nucleated RBC % 0, Sodium 138, Potassium 4.2, Chloride 107, Carbon Dioxide 28.0, Anion Gap 3 L, BUN 20 H, Creatinine 0.86, Estim Creat Clear Calc 66.51, Est GFR (MDRD) Af Amer 89, Est GFR (MDRD) Non-Af 73, BUN/Creatinine Ratio 23.4 H, Glucose 118 H, Lactic Acid 1.6, Calcium 8.9, Total Bilirubin 0.30, AST 12 L, ALT 19, Alkaline Phosphatase 87, Total Protein 7.1, Albumin 3.2, Globulin 3.9, Albumin/Globulin Ratio 0.8 L Assessment & Plan Assessment/Plan (1) Failure of outpatient treatment: (2) Cellulitis: (3) Hyperglycemia: PLAN: Plan Bilateral lower extremity cellulitis -Started on the right and has to the left -Mild systemic symptoms -Has had 2 rounds of outpatient Keflex and 2 rounds of outpatient doxycycline -Agree with Angelica and Ryan for now -No wounds to culture -Elevate lower extremities -We will consult wound nurse to help with wrapping lower extremities -Had echocardiogram done on 06/19/2021 at [facility] that showed normal EF and no significant valvular disease however they were unable to estimate right ventricular systolic pressure -ESR and CRP are pending -Blood cultures are pending--> only able to get 1 set -Does have history of MRSA infection and Staph hominis bacteremia Hyperglycemia -Mild -Check hemoglobin A1c with infection -No history of diabetes MIGUEL/obesity hypoventilation syndrome -Continue home BiPAP -Follows with Dr. Johnson History of iron deficiency anemia -Hemoglobin stable -Continue home iron supplementation Hypertension -Continue home lisinopril GERD -PPI Depression -Continue home Effexor Osteoarthritis -Scheduled Tylenol Super morbid obesity -BMI 78.5 -Recommend weight loss -Complicates treatment, prognosis, outcomes DVT prophylaxis -Lovenox subcu 40 twice daily CODE STATUS -Full code as per discussion on admission Charges/Coding Visit Charges Inpatient E&M: 79609 Init Hosp L2 07/25/23 0110 <Electronically signed by Adrianna Mejia DO> Cosigner Signature (if applicable): CC: Dr. Adrianna Mejia DO; VJ Maloney~ Signed [facility] Work Phone: 1(656) 835-907608-26-2023 History and physical note Author Adrianna Mejia [facility] July 25, 2023 1:10am Note Date/Time July 25, 2023 12 :48am [facility] Medical Records Department [address] [place] [id number] H&P Exam - Hospitalist 07/25/23 0044 MR#: [id number] Acct: [id number] Name: JESUSITA ENGLAND Rep #:[id number] : 1970 53 From: Adrianna Mejia DO PCP: VJ Maloney Status:ADM IN Location: [place] [address] HPI - General General Date of Admission: 07/25/23 Date of Service: 07/25/23 Chief Complaint: LLE Redness HPI Narrative JESUSITA ENGLAND, is a 53 F who presented to the emergency department at [facility] late in the evening on 07/24/2023 with new onset left lower extremity erythema. Patient has been battling right lower extremity cellulitis for about a month now. She was placed on Keflex x2 and doxycycline x2 courses but the erythema has persisted. She states the right side initially got better but her left side started this morning. Her right side looks worse now than it did yesterday as well. The erythema on the left lower extremity has been rapidly progressing. She does have a previous history of MRSA pneumonia and Staph hominis bacteremia. She does not have diabetes at baseline. She states she has had chills and a headache but no documented fever. Her legs are painful. Vital signs on presentation show a temperature of 98 degrees, heart rate 81, blood pressure 126/94, respiratory rate 18 oxygen saturations are 97% on room air. CBC shows a mild leukocytosis with a white count of 11.1. There is a leftshift with an 84.5% neutrophilia. Her chemistry panel was overall unremarkable other than mild glucose elevation with a blood sugar of 118. Liver functions normal. In the emergency department she was given vancomycin and Zosyn given outpatient failure of to oral antibiotics and request for admission was made. [facility] Medical History Abnormal echocardiogram Anxiety Ascending aorta dilatation Asthma Depression GERD without esophagitis Heel spur IBS (irritable bowel syndrome) Insomnia Osteoarthritis (arthritis due to wear and tear of joints) Home Medications acetaminophen 500 mg capsule 1,000 mg PO Q6H PRN Pain 07/11/21 [History Last Taken Unknown] aspirin 81 mg tablet,delayed release (Adult Low Dose Aspirin) 81 mg PO DAILY 07/11/21 [History Last Taken Unknown] ascorbic acid (vitamin C) 500 mg tablet 500 mg PO 1200 #0 tabs 08/01/21 [Rx Last Taken Unknown] ferrous sulfate 325 mg (65 mg iron) tablet (FeroSul) 325 mg PO DAILY@1200 #30 tabs 08/01/21 [Rx Last Taken Unknown] magnesium oxide 400 mg PO DAILY #30 caps 08/01/21 [Rx Last Taken Unknown] venlafaxine 75 mg capsule,extended release 24 hr (Effexor XR) 225 mg (3 x 75 mg)PO DAILY #90 caps 09/03/21 [Rx Last Taken Unknown] Lactobacillus acidophilus (Acidophilus capsule) 10 mg PO DAILY 07/24/23 [History Last Taken Unknown] cholestyramine (with sugar) 4 gram oral powder ea 07/24/23 [History Last Taken Unknown] doxycycline hyclate 100 mg capsule 100 mg PO BID 07/24/23 [History Last Taken Unknown] lisinopril 10 mg tablet 10 mg PO DAILY 07/24/23 [History Last Taken Unknown] omeprazole 40 mg capsule,delayed release 40 mg PO DAILY 07/24/23 [History Last Taken Unknown] pediatric multivitamin .Route 07/24/23 [History Last Taken Unknown] Allergy/AdvReac Type Severity Reaction Status Date / Time adhesive tape AdvReac Unknown Other Verified 07/24/23 22:53 Family History Mother Alzheimer's dementia Surgical History H/O foot surgery History of cholecystectomy History of hip surgery Social History household members: spouse housing: house number of children: 1 current occupational status: employed 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 For lunch she has a bowl of soup and crackers which she takes to work. Sometimes has pretzels for a snack. Eats lunch at 12:30- 1 and does not get home until 7 PM and then she is starved. Her sometimes cooks and it is usually not healthy and may include pizza, hotdogs, fast food. Does not plan meals and her hisband is not supportive of healthy eating. He is a little overweight and likes to eat junk. ROS Constitutional Constitutional: Reports chills; Denies anorexia, change in weight, fatigue, fever(s), malaise, night sweats, weakness or other Eyes Eyes: Denies blurry vision, change in eye color, change in vision, discharge from eye(s), double vision, erythema, eye pain, loss of vision or other ENT HEENT: Reports headache(s); Denies abnormal hearing, dysphagia, ear pain, epistaxis, hearing loss, nasal congestion, nasal discharge, post nasal drip, sinus pressure, sore throat or other Cardiovascular Cardiovascular: Denies chest pain, claudication, dyspnea on exertion, edema, lightheadedness, orthopnea, palpitations, paroxysmal nocturnal dyspnea, rapid heart rate, syncope or other Respiratory/Chest Respiratory/Chest: Denies cough, dyspnea, excessive phlegm production, hemoptysis, productive cough, shortness of breath at rest, shortness of breath with exertion, wheezing or other Gastrointestinal Gastrointestinal: Denies abdominal pain, coffee ground emesis, constipation, diarrhea, dyspepsia, hematemesis, hematochezia, loose stools, melena, nausea, vomiting or other Genitourinary Genitourinary: Denies burning urination, difficulty urinating, dysuria, hematuria, nocturia, urinary frequency, urinary hesitancy, urinary incontinence,urinary urgency or other Musculoskeletal Musculoskeletal: Reports other Details: Bilateral lower extremity leg pain Neurologic Neurologic: Reports headache(s); Denies abnormal gait, abnormal speech, confusion, disequilibrium, dizziness, focal weakness, numbness, paresthesias, seizure-like activity, seizures, syncope, tingling, tremor(s) or other Psychiatric Psychiatric: Reports depression; Denies anxiety, homicidal ideation, suicidal ideation or other Endocrine Endocrinology: Denies change in body appearance, cold intolerance, excessive sweating, heat intolerance, polydipsia, polyuria or other Hematologic/Lymphatic Hematologic/Lymphatic: Reports other Details: Chronic bilateral lower extremity lymphedema Allergic/Immunologic Allergic/Immunologic: Denies rhinitis, hives, eczemia, asthma or other Vital Signs Vital Signs Vital Signs: 07/24/23 22:50 07/25/23 00:37 07/25/23 00:38 Temperature 98.0 F 98.3 F Temperature Source Temporal Oral Pulse Rate 81 81 69 Respiratory Rate 18 16 16 Blood Pressure 126/94 H 136/80 H 136/80 H Blood Pressure Mean 104 98 98 Pulse Ox 97 97 96 Oxygen Delivery Method Room Air Room Air Room Air Weight Weight: 214.096 kg Body Mass Index (BMI) 78.5 Physical Exam Const alert, oriented x3, no apparent distress and well nourished; Negative for average body habitus or healthy appearing Constitutional Narrative: Super morbidly obese, pleasant, middle-aged white female, sitting up in bed, appears comfortable and nontoxic, family at bedside General Appearance: cooperative HEENT normocephalic, head/scalp atraumatic, hearing grossly normal bilaterally and moist oral mucous membranes HEENT Narrative: Mallampati 3, no thrush Resp normal respiratory effort, no retractions, no use of accessory muscles and clearto auscultation bilaterally Auscultation: Negative for rales, rhonchi or wheezes Cardio regular rate, regular rhythm, S1 normal heart sound, S2 normal heart sound, no murmurs, no rub, no gallops and no clicks GI normal to inspection, nondistended, normoactive bowel sounds, soft to palpation and non-tender Extremity Extremity Narrative: Bilateral lower extremity lymphedema noted, no cyanosis or clubbing Skin Skin Narrative: Bilateral lower extremity erythema worse on the left than the right, skin is warm to touch in the area that is erythematous, tender, area extends up into themedial thigh area bilaterally, patient does have some peeling skin on the right side but no open wounds noted Neuro oriented x3, CN's II-XII intact bilaterally, moves all extremities and no focal motor deficits Speech: speech normal Psych affect normal Psych Narrative: Pleasant, interacts appropriately Results Lab / Micro Data 07/24/23 23:22 07/24/23 23:22 Labs: Laboratory Results - last 24 hr 07/24/23 23:22: WBC 11.1 H, RBC 4.40, Hgb 12.2, Hct 38.0, MCV 86.4, MCH 27.7, MCHC 32.1, RDW Std Deviation 48.1 H, RDW Coeff of Rani 15.2 H, Plt Count 209, MPV9.2, Immature Gran % (Auto) 0.600, Neut % (Auto) 84.5 H, Lymph % (Auto) 8.1 L, [place] % (Auto) 6.7, Eos % (Auto) 0.0, Baso % (Auto) 0.1, Absolute Neuts (auto) 9.4 H, Absolute Lymphs (auto) 0.90, Nucleated RBC % 0, Sodium 138, Potassium 4.2, Chloride 107, Carbon Dioxide 28.0, Anion Gap 3 L, BUN 20 H, Creatinine 0.86, Estim Creat Clear Calc 66.51, Est GFR (MDRD) Af Amer 89, Est GFR (MDRD) Non-Af 73, BUN/Creatinine Ratio 23.4 H, Glucose 118 H, Lactic Acid 1.6, Calcium 8.9, Total Bilirubin 0.30, AST 12 L, ALT 19, Alkaline Phosphatase 87, Total Protein 7.1, Albumin 3.2, Globulin 3.9, Albumin/Globulin Ratio 0.8 L Assessment & Plan Assessment/Plan (1) Failure of outpatient treatment: (2) Cellulitis: (3) Hyperglycemia: PLAN: Plan Bilateral lower extremity cellulitis -Started on the right and has to the left -Mild systemic symptoms -Has had 2 rounds of outpatient Keflex and 2 rounds of outpatient doxycycline -Agree with Angelica and Ryan for now -No wounds to culture -Elevate lower extremities -We will consult wound nurse to help with wrapping lower extremities -Had echocardiogram done on 06/19/2021 at [facility] that showed normal EF and no significant valvular disease however they were unable to estimate right ventricular systolic pressure -ESR and CRP are pending -Blood cultures are pending--> only able to get 1 set -Does have history of MRSA infection and Staph hominis bacteremia Hyperglycemia -Mild -Check hemoglobin A1c with infection -No history of diabetes MIGUEL/obesity hypoventilation syndrome -Continue home BiPAP -Follows with Dr. Johnson History of iron deficiency anemia -Hemoglobin stable -Continue home iron supplementation Hypertension -Continue home lisinopril GERD -PPI Depression -Continue home Effexor Osteoarthritis -Scheduled Tylenol Super morbid obesity -BMI 78.5 -Recommend weight loss -Complicates treatment, prognosis, outcomes DVT prophylaxis -Lovenox subcu 40 twice daily CODE STATUS -Full code as per discussion on admission Charges/Coding Visit Charges Inpatient E&M: 33208 Init Hosp L2 07/25/23 0110 <Electronically signed by Adrianna Mejia DO> Cosigner Signature (if applicable): CC: Dr. Adrianna Mejia DO; VJ Maloney~ Signed [facility] Work Phone: 1(320) 840-524308-26-2023 Discharge summary Author Arthur Lara [facility] July 25, 2023 12:14am Note Date/Time July 24, 2023 11 :14pm [facility] Medical Records Department [address] [place] [address] Emergency Department Summary 07/24/23 MR#: [id number] Acct: [id number] Name: JESUSITA ENGLAND Rep #:[id number] : 1970 53 From: Arthur Lara MD PCP: VJ Maloney Status:REG ER Location: ED HPI History of Present Illness Chief Complaint: Wound Narrative Narrative: Patient presents with now bilateral lower extremity cellulitis. For the past month she has been battling right lower extremity cellulitis she is on her fourth dose of antibiotics, she had 2 rounds of Keflex and now she is on her second round of doxycycline. Tonight she noticed left-sided erythema calor which is rapidly progressing. She has no fevers or chills. She does not feel weak. She is not a diabetic [facility] Medical History Abnormal echocardiogram Anxiety Ascending aorta dilatation Asthma Depression GERD without esophagitis Heel spur IBS (irritable bowel syndrome) Insomnia Osteoarthritis (arthritis due to wear and tear of joints) Home Medications acetaminophen 500 mg capsule 1,000 mg PO Q6H PRN Pain 07/11/21 [History Last Taken Unknown] aspirin 81 mg tablet,delayed release (Adult Low Dose Aspirin) 81 mg PO DAILY 07/11/21 [History Last Taken Unknown] ascorbic acid (vitamin C) 500 mg tablet 500 mg PO 1200 #0 tabs 08/01/21 [Rx Last Taken Unknown] ferrous sulfate 325 mg (65 mg iron) tablet (FeroSul) 325 mg PO DAILY@1200 #30 tabs 08/01/21 [Rx Last Taken Unknown] magnesium oxide 400 mg PO DAILY #30 caps 08/01/21 [Rx Last Taken Unknown] venlafaxine 75 mg capsule,extended release 24 hr (Effexor XR) 225 mg (3 x 75 mg)PO DAILY #90 caps 09/03/21 [Rx Last Taken Unknown] Lactobacillus acidophilus (Acidophilus capsule) 10 mg PO DAILY 07/24/23 [History Last Taken Unknown] cholestyramine (with sugar) 4 gram oral powder ea 07/24/23 [History Last Taken Unknown] doxycycline hyclate 100 mg capsule 100 mg PO BID 07/24/23 [History Last Taken Unknown] lisinopril 10 mg tablet 10 mg PO DAILY 07/24/23 [History Last Taken Unknown] omeprazole 40 mg capsule,delayed release 40 mg PO DAILY 07/24/23 [History Last Taken Unknown] pediatric multivitamin .Route 07/24/23 [History Last Taken Unknown] Allergy/AdvReac Type Severity Reaction Status Date / Time adhesive tape AdvReac Unknown Other Verified 07/24/23 22:53 Family History Mother Alzheimer's dementia Surgical History H/O foot surgery History of cholecystectomy History of hip surgery Social History household members: spouse housing: house number of children: 1 current occupational status: employed 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 For lunch she has a bowl of soup and crackers which she takes to work. Sometimes has pretzels for a snack. Eats lunch at 12:30- 1 and does not get home until 7 PM and then she is starved. Her sometimes cooks and it is usually not healthy and may include pizza, hotdogs, fast food. Does not plan meals and her hisband is not supportive of healthy eating. He is a little overweight and likes to eat junk. ROS ROS ED ROS Narrative Past medical history: Reviewed Medications: Reviewed Social history: Noncontributory Review of systems: All systems negative except as indicated General: No fever Eyes: No visual changes ENT: No upper airway congestion, normal voice Cardiovascular: No chest pain Respiratory: No shortness of breath or cough Gastrointestinal: No abdominal pain, nausea vomiting or diarrhea Genitourinary: No dysuria Musculoskeletal: As in HPI Skin: As in HPI Neurological: No memory loss, confusion or any focal weakness EXAM Physical Exam Narrative Exam Narrative: Physical exam General: Patient appears comfortable. She appears recorded BMI. Head: Normocephalic, Atraumatic Eyes: Conjunctiva not pale ENT: Moist mucous membranes Neck: Supple, Nontender, No lymphadenopathy Cardiovascular: Regular rate, Regular rhythm Respiratory: No distress, CTA bilaterally Abdomen: Soft, Nontender, Nondistended Back: Nontender, Normal Inspection. Negative for: CVA tenderness Extremities: Bilateral lower extremity cellulitis, both sides are just above theknee the cellulitis has already been demarcated by her sister who is an RN. There is no crepitus or abscess formation or any signs of necrotizing fasciitis. Skin: As above Neurological: Alert, Normal Strength, Normal Sensation Const Vital Signs: 07/24/23 22:50 Temperature 98.0 F Temperature Source Temporal Pulse Rate 81 Respiratory Rate 18 Blood Pressure 126/94 H Blood Pressure Mean 104 Pulse Ox 97 Oxygen Delivery Method Room Air MDM MDM MDM Narrative Medical decision making narrative: Patient has slight leukocytosis otherwise I do not see any other evidence of sepsis. She is however failing outpatient antibiotics and she is on doxycyclineand developed another cellulitis on the left side. Therefore I believe she meets criteria for admission due to failure of outpatient treatment. I gave Nestor and Ryan in the ED. Lab Data Labs: Laboratory Results - last 24 hr 07/24/23 23:22 WBC 11.1 H RBC 4.40 Hgb 12.2 Hct 38.0 MCV 86.4 MCH 27.7 MCHC 32.1 RDW Std Deviation 48.1 H RDW Coeff of Rani 15.2 H Plt Count 209 MPV 9.2 Immature Gran % (Auto) 0.600 Neut % (Auto) 84.5 H Lymph % (Auto) 8.1 L [place] % (Auto) 6.7 Eos % (Auto) 0.0 Baso % (Auto) 0.1 Absolute Neuts (auto) 9.4 H Absolute Lymphs (auto) 0.90 Nucleated RBC % 0 Sodium 138 Potassium 4.2 Chloride 107 Carbon Dioxide 28.0 Anion Gap 3 L BUN 20 H Creatinine 0.86 Estim Creat Clear Calc 66.51 Est GFR (MDRD) Af Amer 89 Est GFR (MDRD) Non-Af 73 BUN/Creatinine Ratio 23.4 H Glucose 118 H Calcium 8.9 Total Bilirubin 0.30 AST 12 L ALT 19 Alkaline Phosphatase 87 Total Protein 7.1 Albumin 3.2 Globulin 3.9 Albumin/Globulin Ratio 0.8 L Discharge Plan Triage Chief Complaint: Wound ED Provider: Arthur Lara Dx/Rx/DC Orders Clinical Impression: Cellulitis, Failure of outpatient treatment, Obesity Prescriptions: No Action acetaminophen 500 mg capsule 1,000 mg PO Q6H PRN (Reason: Pain) aspirin [Adult Low Dose Aspirin] 81 mg tablet,delayed release (DR/EC) 81 mg PO DAILY ascorbic acid (vitamin C) 500 mg Tablet 500 mg PO 1200 Qty: 0 0RF Rx Instructions: take this medication with the ferrous sulfate with food ferrous sulfate [FeroSul] 325 mg (65 mg iron) Tablet 325 mg PO DAILY@1200 Qty: 30 0RF magnesium oxide 400 mg magnesium capsule 400 mg PO DAILY Qty: 30 0RF venlafaxine [Effexor XR] 75 mg capsule,extended release 24hr 225 mg PO DAILY Qty: 90 0RF Rx Instructions: take 3 capsules every AM omeprazole 40 mg capsule,delayed release(DR/EC) 40 mg PO DAILY Patient Comments: TAKE 1 CAPSULE BY MOUTH ONCE DAILY lisinopril 10 mg tablet 10 mg PO DAILY Patient Comments: TAKE 1 TABLET BY MOUTH ONCE DAILY pediatric multivitamin [multivitamin] .Route doxycycline hyclate 100 mg capsule 100 mg PO BID Patient Comments: TAKE 1 CAPSULE BY MOUTH TWICE DAILY cholestyramine (with sugar) 4 gram powder Patient Comments: TAKE DIRECTED ON CONTAINER Acidophilus Capsule 10 mg PO DAILY Primary Care Provider: Alondra Crews Referrals: Alondra Crews PA [Primary Care Provider] - Disposition Disposition: Acute Care Hospital [facility] What to do if you have Problems For any increased pain, shortness of breath, bleeding, nausea or vomiting, chestpain, or any unexpected problems, contact your Primary Care Provider. Call [facility] ([phone]) or report to the closest Emergency Room. Call 911 if necessary. 07/25/23 001 <Electronically signed by Arthur Lara MD> Cosigner Signature (if applicable): CC: VJ Maloney ~ Signed [facility] Work Phone: 1(249) 475-874308-26-2023 Discharge summary Author Arthur Lara [facility] July 25, 2023 12:14am Note Date/Time July 24, 2023 11 :14pm [facility] Medical Records Department [address] [place] [address] Emergency Department Summary 07/24/23 MR#: [id number] Acct: [id number] Name: JESUSITA ENGLAND Rep #:[id number] : 1970 53 From: Arthur Lara MD PCP: VJ Maloney Status:REG ER Location: ED HPI History of Present Illness Chief Complaint: Wound Narrative Narrative: Patient presents with now bilateral lower extremity cellulitis. For the past month she has been battling right lower extremity cellulitis she is on her fourth dose of antibiotics, she had 2 rounds of Keflex and now she is on her second round of doxycycline. Tonight she noticed left-sided erythema calor which is rapidly progressing. She has no fevers or chills. She does not feel weak. She is not a diabetic [facility] Medical History Abnormal echocardiogram Anxiety Ascending aorta dilatation Asthma Depression GERD without esophagitis Heel spur IBS (irritable bowel syndrome) Insomnia Osteoarthritis (arthritis due to wear and tear of joints) Home Medications acetaminophen 500 mg capsule 1,000 mg PO Q6H PRN Pain 07/11/21 [History Last Taken Unknown] aspirin 81 mg tablet,delayed release (Adult Low Dose Aspirin) 81 mg PO DAILY 07/11/21 [History Last Taken Unknown] ascorbic acid (vitamin C) 500 mg tablet 500 mg PO 1200 #0 tabs 08/01/21 [Rx Last Taken Unknown] ferrous sulfate 325 mg (65 mg iron) tablet (FeroSul) 325 mg PO DAILY@1200 #30 tabs 08/01/21 [Rx Last Taken Unknown] magnesium oxide 400 mg PO DAILY #30 caps 08/01/21 [Rx Last Taken Unknown] venlafaxine 75 mg capsule,extended release 24 hr (Effexor XR) 225 mg (3 x 75 mg)PO DAILY #90 caps 09/03/21 [Rx Last Taken Unknown] Lactobacillus acidophilus (Acidophilus capsule) 10 mg PO DAILY 07/24/23 [History Last Taken Unknown] cholestyramine (with sugar) 4 gram oral powder ea 07/24/23 [History Last Taken Unknown] doxycycline hyclate 100 mg capsule 100 mg PO BID 07/24/23 [History Last Taken Unknown] lisinopril 10 mg tablet 10 mg PO DAILY 07/24/23 [History Last Taken Unknown] omeprazole 40 mg capsule,delayed release 40 mg PO DAILY 07/24/23 [History Last Taken Unknown] pediatric multivitamin .Route 07/24/23 [History Last Taken Unknown] Allergy/AdvReac Type Severity Reaction Status Date / Time adhesive tape AdvReac Unknown Other Verified 07/24/23 22:53 Family History Mother Alzheimer's dementia Surgical History H/O foot surgery History of cholecystectomy History of hip surgery Social History household members: spouse housing: house number of children: 1 current occupational status: employed 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 For lunch she has a bowl of soup and crackers which she takes to work. Sometimes has pretzels for a snack. Eats lunch at 12:30- 1 and does not get home until 7 PM and then she is starved. Her sometimes cooks and it is usually not healthy and may include pizza, hotdogs, fast food. Does not plan meals and her hisband is not supportive of healthy eating. He is a little overweight and likes to eat junk. ROS ROS ED ROS Narrative Past medical history: Reviewed Medications: Reviewed Social history: Noncontributory Review of systems: All systems negative except as indicated General: No fever Eyes: No visual changes ENT: No upper airway congestion, normal voice Cardiovascular: No chest pain Respiratory: No shortness of breath or cough Gastrointestinal: No abdominal pain, nausea vomiting or diarrhea Genitourinary: No dysuria Musculoskeletal: As in HPI Skin: As in HPI Neurological: No memory loss, confusion or any focal weakness EXAM Physical Exam Narrative Exam Narrative: Physical exam General: Patient appears comfortable. She appears recorded BMI. Head: Normocephalic, Atraumatic Eyes: Conjunctiva not pale ENT: Moist mucous membranes Neck: Supple, Nontender, No lymphadenopathy Cardiovascular: Regular rate, Regular rhythm Respiratory: No distress, CTA bilaterally Abdomen: Soft, Nontender, Nondistended Back: Nontender, Normal Inspection. Negative for: CVA tenderness Extremities: Bilateral lower extremity cellulitis, both sides are just above theknee the cellulitis has already been demarcated by her sister who is an RN. There is no crepitus or abscess formation or any signs of necrotizing fasciitis. Skin: As above Neurological: Alert, Normal Strength, Normal Sensation Const Vital Signs: 07/24/23 22:50 Temperature 98.0 F Temperature Source Temporal Pulse Rate 81 Respiratory Rate 18 Blood Pressure 126/94 H Blood Pressure Mean 104 Pulse Ox 97 Oxygen Delivery Method Room Air MDM MDM MDM Narrative Medical decision making narrative: Patient has slight leukocytosis otherwise I do not see any other evidence of sepsis. She is however failing outpatient antibiotics and she is on doxycyclineand developed another cellulitis on the left side. Therefore I believe she meets criteria for admission due to failure of outpatient treatment. I gave Nestor and Ryan in the ED. Lab Data Labs: Laboratory Results - last 24 hr 07/24/23 23:22 WBC 11.1 H RBC 4.40 Hgb 12.2 Hct 38.0 MCV 86.4 MCH 27.7 MCHC 32.1 RDW Std Deviation 48.1 H RDW Coeff of Rani 15.2 H Plt Count 209 MPV 9.2 Immature Gran % (Auto) 0.600 Neut % (Auto) 84.5 H Lymph % (Auto) 8.1 L [place] % (Auto) 6.7 Eos % (Auto) 0.0 Baso % (Auto) 0.1 Absolute Neuts (auto) 9.4 H Absolute Lymphs (auto) 0.90 Nucleated RBC % 0 Sodium 138 Potassium 4.2 Chloride 107 Carbon Dioxide 28.0 Anion Gap 3 L BUN 20 H Creatinine 0.86 Estim Creat Clear Calc 66.51 Est GFR (MDRD) Af Amer 89 Est GFR (MDRD) Non-Af 73 BUN/Creatinine Ratio 23.4 H Glucose 118 H Calcium 8.9 Total Bilirubin 0.30 AST 12 L ALT 19 Alkaline Phosphatase 87 Total Protein 7.1 Albumin 3.2 Globulin 3.9 Albumin/Globulin Ratio 0.8 L Discharge Plan Triage Chief Complaint: Wound ED Provider: Arthur Lara Dx/Rx/DC Orders Clinical Impression: Cellulitis, Failure of outpatient treatment, Obesity Prescriptions: No Action acetaminophen 500 mg capsule 1,000 mg PO Q6H PRN (Reason: Pain) aspirin [Adult Low Dose Aspirin] 81 mg tablet,delayed release (DR/EC) 81 mg PO DAILY ascorbic acid (vitamin C) 500 mg Tablet 500 mg PO 1200 Qty: 0 0RF Rx Instructions: take this medication with the ferrous sulfate with food ferrous sulfate [FeroSul] 325 mg (65 mg iron) Tablet 325 mg PO DAILY@1200 Qty: 30 0RF magnesium oxide 400 mg magnesium capsule 400 mg PO DAILY Qty: 30 0RF venlafaxine [Effexor XR] 75 mg capsule,extended release 24hr 225 mg PO DAILY Qty: 90 0RF Rx Instructions: take 3 capsules every AM omeprazole 40 mg capsule,delayed release(DR/EC) 40 mg PO DAILY Patient Comments: TAKE 1 CAPSULE BY MOUTH ONCE DAILY lisinopril 10 mg tablet 10 mg PO DAILY Patient Comments: TAKE 1 TABLET BY MOUTH ONCE DAILY pediatric multivitamin [multivitamin] .Route doxycycline hyclate 100 mg capsule 100 mg PO BID Patient Comments: TAKE 1 CAPSULE BY MOUTH TWICE DAILY cholestyramine (with sugar) 4 gram powder Patient Comments: TAKE DIRECTED ON CONTAINER Acidophilus Capsule 10 mg PO DAILY Primary Care Provider: Alondra Crews Referrals: Alondra Crews PA [Primary Care Provider] - Disposition Disposition: Acute Care Hospital [facility] What to do if you have Problems For any increased pain, shortness of breath, bleeding, nausea or vomiting, chestpain, or any unexpected problems, contact your Primary Care Provider. Call [facility] ([phone]) or report to the closest Emergency Room. Call 911 if necessary. 07/25/23 0014 <Electronically signed by Arthur Lara MD> Cosigner Signature (if applicable): CC: VJ Maloney ~ Signed [facility] Work Phone: [phone]) 719-844308-09-2023 Hospital Discharge instructions Additional Instructions Ultrasound negative for DVT. Recurrent cellulitis right lower extremity. White count 14.9. Lactic acid normal at 1.6. Your erythema has been outlined. Take antibiotic as prescribed. Follow-up with your doctor closely. Return if worsening symptoms.[facility] Work Phone: [phone]) 858-733603-06-2023 NoteChief Complaint An interactive audio and video telecommunication system which permits real time communications between the patient (at the originating site) and provider (at the distant site) was utilized to providethis telehealth service. Verbal consent was requested and obtained from JESUSITA SAMANTA on this date, 02/02/2023 08:30 AM , for a telehealth visit. Obesity Initial nutrition visit *Active Problems Back pain (724.5) (M54.9) Daytime sleepiness (780.54) (R40.0) Decreased exercise tolerance (780.99) (R68.89) Decreased range of motion (719.50) (M25.60) Encounter for vitamin deficiency screening (V77.99) (Z13.21) Osteoarthritis (715.90) (M19.90) Poor self-esteem (799.29) (R45.81) Preoperative clearance (V72.84) (Z01.818) Snoring (786.09) (R06.83) SOB (shortness of breath) on exertion (786.05) (R06.02) Urinary incontinence (788.30) (R32) Bariatric surgery status (V45.86) (Z98.84) Morbid obesity (278.01) (E66.01) BMI 70 and over, adult (V85.45) (Z68.45) HTN (hypertension) (401.9) (I10) MIGUEL treated with BiPAP (327.23) (G47.33) GERD (gastroesophageal reflux disease) (530.81) (K21.9) Lymphedema (457.1) (I89.0) Joint pain (719.40) (M25.50) Edema of lower extremity (782.3) (R60.0) Heart disease (429.9) (I51.9) Depression (311) (F32.A) Surgical History History of Cholecystectomy laparoscopic History of Foot surgery History of Hip surgery Family History Family history of dementia (V17.2) (Z81.8) Family history of obesity (V18.19) (Z83.49) Family history of Parkinson disease, symptomatic Social History Employed Non-smoker (V49.89) (Z78.9) Rarely consumes alcohol (V49.89) (Z78.9) Allergies No Known Drug Allergies Recorded By: Cadence Smith; 12/22/2022 10:19:16 AM Current Meds Aspirin 81 MG TABS; Therapy: (Recorded:22Dec2022) to Recorded Dispense: 0 Days ; #: Sufficient; Refill: 0;For: Urinary incontinence; JOSE = N; Record; Last Updated By: Cadence Smith; 12/22/2022 10:19:17 AM Cholestyramine 4 GM Oral Packet; Therapy: (Recorded:22Dec2022) to Recorded Dispense: 0 Days ; #: Sufficient; Refill: 0;For: Urinary incontinence; JOSE = N; Record; Last Updated By: Cadence Smith; 12/22/2022 10:19:17 AM Ferrous Sulfate 325 (65 Fe) MG Oral Tablet; Therapy: (Recorded:22Dec2022) to Recorded Dispense: 0 Days ; #: Sufficient; Refill: 0;For: Urinary incontinence; JOSE = N; Record; Last Updated By: Cadence Smith; 12/22/2022 10:19:17 AM Lisinopril 10 MG Oral Tablet; Therapy: (Recorded:22Dec2022) to Recorded Dispense: 0 Days ; #: Sufficient; Refill: 0;For: Urinary incontinence; JOSE = N; Record; Last Updated By: Cadence Smith; 12/22/2022 10:19:17 AM Multi Vitamin Daily TABS; Therapy: (Recorded:22Dec2022) to Recorded Dispense: 0 Days ; #: Sufficient; Refill: 0;For: Urinary incontinence; JOSE = N; Record; Last Updated By: Cadence Smith; 12/22/2022 10:19:17 AM Omeprazole 40 MG Oral Capsule Delayed Release; Therapy: (Recorded:22Dec2022) to Recorded Dispense: 0 Days ; #: Sufficient; Refill: 0;For: Urinary incontinence; JOSE = N; Record; Last Updated By: Cadence Smith; 12/22/2022 10:19:17 AM Venlafaxine HCl - 75 MG Oral Tablet; Therapy: (Recorded:22Dec2022) to Recorded Dispense: 0 Days ; #: Sufficient; Refill: 0;For: Urinary incontinence; JOSE = N; Record; Last Updated By: Cadence Smith; 12/22/2022 10:19:17 AM Provider Impressions Initial Bariatric Nutrition Assessment Surgeon: Kiya Patient is considering: gastric sleeve ASSESSMENT: Current/initial weight: 500Ht: 64in BMI: 85.8 IBW: 145 Pre-Op Excess Body Weight (EBW): 355 Target Post-Op weight goal: 269-322 Food allergies/intolerances: no Chewing/Swallowing/Dentition: no Nausea / Vomiting / Hx Gastroparesis: no Diarrhea/ Constipation: yes Exercise level: no- arthritis, extreme knee pain Smoking/Tobacco use: no Vitamins/Minerals supplements: iron, hair skin and nail Medications: see list Past diet attempts: WW, OTC diet pills, prescription diet pills, low carb, low kcal, liquid diet, vegan/vegetarian, RD monitored, herbal life Hours of sleep/night: 4-12 hours Work: 7am -4pm (could work until 7-8pm), or 1pm,-10pm 24 HOUR RECALL/DIET HISTORY: Breakfast: 2 egg ham and cheese wraps Snack: Lunch: bibbi bops ( chipoltle) Snack: Dinner: chicken, corn. cauliflower rice, sweet potato noodles, egg, cheese, spouts Snack: carrots. cucumber Beverages: 2x coffee w/creamer, passion fruit lemonade, milk 2x per week, Dr pepper 3-4x/day, 24-32oz of water Alcohol: Person responsible for cooking AND shopping? self How often do you eat sweet snacks? daily How often do you eat savory snacks? 5x per week How often do you eat out? 6x per week Do you feel overly stuffed? occasionally Binge Eating? no Night Eating? no Emotional Eating? depressed/ stressed/ bored READINESS TO LEARN: Motivation to learn: Interested Understanding of instruction: Good Anticipated Complianc (more content not included)...[id number] Note [facility]08-04-2021 History of Present illness Narrative* Nargis Bhat RN - 07/03/2021 5:48 PM EDT Pt PICC line removed. Pt discharge report called to Juan J Haq RN. Pt belongings packed and transported with patient. Pt family aware of discharge to rehab. Pt transported via [employer]. * Humaira Michael MD - 07/03/2021 8:52 AM EDT Images from the original note were not included. [facility], Pulmonary Critical Care and Sleep Medicine Patient - Jesusita England, Age - 51 y.o. - 1970 Room Number - [id number] Consulting - Ruth Soni DO Primary Care Physician - No primary care provider on file. Date of Admission - 06/03/2021 1:32 PM Hospital Day - 30 Subjective/Events Past 24 hours/ROS Jesusita England is a 51 y.o. 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 Patient was intubated from 06/04-06/18 and received remdesevir and decadron. Overnight, the patient was placed on BiPAP with settings of 14/6. She desaturated to 85% multiple times throughout the night. She reports discomfort with the mask. This morning, the patient is resting comfortably in bed on 2L NC. Spoke with RN who reported patient desaturated to the mid 80s while eating breakfast this morning so she was placed back on NC. All other systems reviewed Objective Vitals Vitals: BP 126/72 Pulse 81 Temp 98.2 F (36.8 C) (Temporal) Resp 20 Ht 5' 5 (1.651 m) Wt (!) 417 lb 15.9 oz (189.6 kg) SpO2 93% BMI 69.56 kg/m Pulse Ox: SpO2 Av.8 % Min: 90 % Max: 95 % Supplemental O2: O2 Flow Rate (L/min): 2 L/min I/O 24HR INTAKE/OUTPUT: Intake/Output Summary (Last 24 hours) at 07/03/2021 0853 Last data filed at 07/03/2021 0409 Gross per 24 hour Intake 1415 ml Output 900 ml Net 515 ml Patient Vitals for the past 96 hrs (Last 3 readings): Weight 07/03/21 0652 (!) 417 lb 15.9 oz (189.6 kg) Exam General Appearance Awake, alert, oriented, obese, in no acute distress. On 2L NC. HEENT - normocephalic, atraumatic, sclarea is anicteric, conjunctiva is pink, nasal mucosa is normal, no congestion, external ears are intact. Neck - Supple, trachea midline, full range of motion. Lymph nodes- no cervical, clavicular, or posterior auricular lymphadenopathy Lungs Normal effort. Percussion normal. Good diaphragmatic excursion. Lungs clear to auscultation bilaterally, no wheezes, rales or rhonchi, aeration good Cardiovascular - Heart sounds are normal. Regular rate and rhythm, without murmurs, rubs or gallops Abdomen - Soft, nontender, nondistended, no masses or organomegaly Neurologic - Awake, alert, follows commands. Cranial nerves II-XII are intact. Chronic R sided weakness appreciated. Skin - No bruising or bleeding, normal turgor, no rashes or lesions Extremities - Bilateral lower extremity edema; no clubbing, cyanosis Peripheral pulses- present bilaterally and symmetric Psychiatric: appropriate, oriented to person, place and time/date Meds Vitamin D 2,000 Units Oral Daily ferrous sulfate 325 mg Oral Every Other Day ipratropium-albuterol 1 ampule Inhalation BID fluticasone 2 spray Each Nostril BID sodium chloride flush 10 mL Intracatheter Q12H heparin flush 250 Units Intracatheter Q12H heparin flush 250 Units Intravenous 2 times per day gabapentin 300 mg Oral Daily guaiFENesin 600 mg Oral BID sodium chloride (Inhalant) 4 mL Nebulization TID cholestyramine 0.5 packet Oral Daily mometasone-formoterol 2 puff Inhalation BID pantoprazole 40 mg Oral QAM AC sodium hypochlorite Irrigation Daily mineral oil-hydrophilic petrolatum Topical BID collagenase Topical Daily stomahesive in petrolatum Topical BID melatonin 3 mg Oral Nightly sennosides-docusate sodium 2 tablet Oral BID polyethylene glycol 17 g Oral BID miconazole Topical BID enoxaparin 40 mg Subcutaneous BID dextrose 100 mL/hr (06/24/212109) sodium chloride 25 mL (06/16/21927) sodium chloride flush, heparin flush, sodium chloride flush, sodium chloride, sodium chloride (Inhalant), phenol, hydrOXYzine, ipratropium-albuterol, benzocaine, traZODone, bisacodyl, stomahesive in petrolatum, glucose, dextrose, glucagon (rDNA), dextrose, sodium chloride, ondansetron OR ondansetron, magnesium hydroxide, acetaminophen OR acetaminophen, hydrocortisone-aloe Labs CBC Recent Labs 07/03/21 0521 WBC 5.0 HGB 8.9* HCT 28.3* MCV 76.9* PLT 229 BMP: Recent Labs 07/03/21 0521 NA 139 K 4.6 CL 105 CO2 27 BUN 53* CREATININE 2.25* GLUCOSE 96 MG 1.6 PHOS 6.3* ABG: No results for input(s): PH, PCO2, PO2, HCO3, O2SAT in the last 72 hours. No results found for: IFIO2, MODE, SETTIDVOL, SETPEEP LIVER PROFILE Recent Labs 07/02/21 0522 AST 25 ALT 23 BILIDIR 0.0 BILITOT 0.5 ALKPHOS 70 INR Lab Results Component Value Date INR 1.0 06/03/2021 PROTIME 10.8 06/03/2021 PTT Lab Results Component Value Date APTT 26.2 06/03/2021 Cultures Blood cultures from 06/19: no growth Respiratory cultures from 06/19: few normal respiratory pretty and staph aureus Radiology CXR No recent images Reviewed (See actual reports for details) Active Hospital Problem List Active Hospital Problems Diagnosis Date Noted Ventilator associated pneumonia (HCC) [J95.851] 07/01/2021 Evin albicans infection [B37.9] 07/01/2021 MRSA pneumonia (HCC) [J15.212] 07/01/2021 MSSA (methicillin susceptible Staphylococcus aureus) pneumonia (HCC) [J15.211] 07/01/2021 Obstructive sleep apnea syndrome [G47.33] 06/30/2021 Body mass index (BMI) of 70 or greater in adult (HCC) [Z68.45] 06/30/2021 Morbid obesity (HCC) [E66.01] 06/30/2021 MIRIAM (acute kidney injury) (HCC) [N17.9] Hyponatremia [E87.1] Poor intravenous access [Z78.9] Pressure injury of right buttock, stage 3 ([facility]) [L89.313] Insomnia [G47.00] Gastroesophageal reflux disease without esophagitis [K21.9] Angular cheilitis [K13.0] COVID-19 [U07.1] Anxiety [F41.9] Palliative care encounter [Z51.5] Pneumonia due to COVID-19 virus [U07.1, J12.82] 06/03/2021 Iron deficiency anemia due to chronic blood loss [D50.0] 06/02/2021 Assessment and Plan 51F w/ PMH COVID 19 pneumonia and 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 - Continue Dulera and aerosols - Continue NC with movement and while eating, ok to remove NC while resting in bed during the day - Continue to use BiPAP at current settings (13/05) - Planned for discharge to rehab - Cleared for discharge from a pulmonary standpoint - Home O2 eval prior to discharge from rehab - Follow up as outpatient in COVID clinic - Repeat CT chest in 8-12 weeks for surveillance - Outpatient sleep study DVT prophylaxis: [x] Lovenox [] Heparin [] SCDs [x] Encourage ambulation [] Already on Anticoagulation Advance Directive: Full Code Discharge planning: Discharge to inpatient rehab, likely in the next 24-48 hours Case discussed with nurse and patient/family. Questions and concerns addressed. Associated attestation - Fish Kahn MD - 07/03/2021 1:55 PM EDT I have personally seen the patient and examined along with the resident team. I personally obtainedthe roach and relevent portions of the history and performed physical exam. I reviewed the chart including MAR , labs and radiology and discussed the patient's plan of action with the resident. This note reflects my plan of care as I have edited the note to reflect my findings and my assessment and plan. Post covid pneumonitis Super morbid obesity with OHS/ pickwickian physiology - Continue BiPAP instead of CPAP overnight while here and outpatient PSG as outpatient - Follow up in COVID clinic and Repeat CT in 8 - 12 weeks - Tolerating RA at rest - Qualifies for overnight O2 via BiPAP machine 3 lpm bleed - Ok from pulmonary standpoint to be discharged to rehab. * Nargis Bhat RN - 07/03/2021 8:25 AM EDT Pt was eating breakfast and on RA 82-84%. Pt placed on 2L NC, 92-94% SpO2. Pt educated on being mindful of oxygen level during exertion and during mealtime. Pt stated she does have her own pulse ox for her finger. Pt states understanding of need for 02 at times. Pt agreeable to wear during meals and as needed. Dr Michael made aware. * Josesito Joseph Jr., MD - 07/03/2021 7:29 AM EDT Images from the original note were not included. Med Team Progress Note Jesusita England : 1970(51 y.o.) Date: July 03, 2021 Med Team: Jennifer Attending: Dr. Joseph Chief Complaint: SOB Subjective: - Overnight, the patient was put on BiPAP with 14/6 setting. She reported discomfort with the mask.Her O2 desaturated once to as low as 85% throughout the night. - Currently, the patient is resting comfortable in no acute distress. She continues to have shortness of breath with a productive cough but notes no worsening of her condition. Her primary concerns revolved around lifting her fluid restriction. Review of Systems Constitutional: Negative for chills, fatigue and fever. HENT: Negative for ear pain, hearing loss, sinus pain, sore throat, trouble swallowing and voice change. Eyes: Negative for pain and discharge. Respiratory: Positive for cough and shortness of breath. Cardiovascular: Positive for leg swelling. Gastrointestinal: Negative for abdominal pain, constipation, diarrhea, nausea and vomiting. Endocrine: Negative for polydipsia and polyphagia. Genitourinary: Negative for difficulty urinating, dysuria and frequency. Musculoskeletal: Negative for back pain, joint swelling and neck pain. Skin: Positive for rash (mild rash on medial side of left salvador). Neurological: Negative for dizziness, weakness, light-headedness and numbness. Psychiatric/Behavioral: Negative for agitation and confusion. Scheduled Meds: Vitamin D 2,000 Units Oral Daily ferrous sulfate 325 mg Oral Every Other Day ipratropium-albuterol 1 ampule Inhalation BID fluticasone 2 spray Each Nostril BID sodium chloride flush 10 mL Intracatheter Q12H heparin flush 250 Units Intracatheter Q12H heparin flush 250 Units Intravenous 2 times per day gabapentin 300 mg Oral Daily guaiFENesin 600 mg Oral BID sodium chloride (Inhalant) 4 mL Nebulization TID cholestyramine 0.5 packet Oral Daily mometasone-formoterol 2 puff Inhalation BID pantoprazole 40 mg Oral QAM AC sodium hypochlorite Irrigation Daily mineral oil-hydrophilic petrolatum Topical BID collagenase Topical Daily stomahesive in petrolatum Topical BID melatonin 3 mg Oral Nightly sennosides-docusate sodium 2 tablet Oral BID polyethylene glycol 17 g Oral BID miconazole Topical BID enoxaparin 40 mg Subcutaneous BID Continuous Infusions: dextrose 100 mL/hr (06/24/212109) sodium chloride 25 mL (06/16/21927) PRN meds used in last 24hrs: N/A Objective: BP 126/72 Pulse 81 Temp 98.2 F (36.8 C) (Temporal) Resp 20 Ht 5' 5 (1.651 m) Wt (!) 417 lb 15.9 oz (189.6 kg) SpO2 93% BMI 69.56 kg/m Physical Exam Constitutional: General: She is not in acute distress. Appearance: She is obese. HENT: Head: Normocephalic and atraumatic. Right Ear: External ear normal. Left Ear: External ear normal. Nose: No congestion or rhinorrhea. Eyes: General: No scleral icterus. Right eye: No discharge. Left eye: No discharge. Extraocular Movements: Extraocular movements intact. Cardiovascular: Rate and Rhythm: Normal rate and regular rhythm. Heart sounds: Normal heart sounds. Pulmonary: Effort: Pulmonary effort is normal. Breath sounds: Normal breath sounds. No wheezing or rales. Abdominal: General: Abdomen is flat. There is no distension. Tenderness: There is no abdominal tenderness. Musculoskeletal: General: Normal range of motion. Right lower leg: Edema present. Left lower leg: Edema present. Neurological: General: No focal deficit present. Mental Status: She is alert and oriented to person, place, and time. Motor: Weakness (chronic R sided weakness improving) present. Psychiatric: Mood and Affect: Mood normal. [facility] Labs within last 24 hours Lab Results Component Value Date/Time WBC 5.0 07/03/2021 05:21 AM Hemoglobin 8.9 (L) 07/03/2021 05:21 AM Hematocrit 28.3 (L) 07/03/2021 05:21 AM Platelets 229 07/03/2021 05:21 AM MCV 76.9 (L) 07/03/2021 05:21 AM Lab Results Component Value Date/Time Sodium 139 07/03/2021 05:21 AM Potassium 4.6 07/03/2021 05:21 AM Chloride 105 07/03/2021 05:21 AM CO2 27 07/03/2021 05:21 AM BUN 53 (H) 07/03/2021 05:21 AM CREATININE 2.25 (H) 07/03/2021 05:21 AM Glucose 96 07/03/2021 05:21 AM Calcium 8.7 07/03/2021 05:21 AM Magnesium 1.6 07/03/2021 05:21 AM Phosphorus 6.3 (H) 07/03/2021 05:21 AM Assessment and Plan: Acute Respiratory Failure 2/2 COVID PNA + MSSA PNA + Moderate Pulm edema/Effusion MIGUEL Asthma Morbid Obesity - with probable obesity hypoventilation syndrome - S/p remdesevir/decadron. S/p intubation from 06/04-06/18. - Cont duonebs BID + dulera BID - Pt O2 sat 93% on room air - Incentive spirometry to restrenghten lungs and open airway - mucinex, acapella, nebulized hypertonic saline to break up mucous - Cont Flonase for nasal symptoms - Was put on BiPAP overnight (14/6 settings), still desaturated down to 85% multiple times - Will continue BiPAP and have outpatient sleep study - 4L oxygen overnight, 2L with exertion Agree MIRIAM 2/2 Lasix, Vancomycin toxicity/Intravascular volume depletion - Improving - sCr 2.25, down from 2.26 yesterday - Urine Na <5 suggests volume depletion is contributing to MIRIAM, but trends more consistent with vanco ATN - Fluid restriction 1.8 L per Nephrology. - Will continue to follow Hypovolemic Hyponatremia - resolved - Na 139 today; unchanged from yesterday -Continue monitoring - 1.8 L fluid restriction per Nephrology - will discuss with nephrology to try to lift restriction Hyperphosphatemia 2/2 MIRIAM -Phos 6.5 this AM, up from 6.4 -Repeat Phos tomorrow Debility 2/2 Intubation and ICU admission - patient appears to be highly motivated to increase physical activity - PT recommends IP rehab - OT recommends IP rehab -Will be sent to IP rehab in [place] 07/03 Anemia with low MCV 2/2 iron deficiency - stable - Iron 27; Sat 10; TIBC 273 indicates iron deficiency anemia - Ferrous sulfate 325 mg PO every other day VAP 2/2 MRSA + now MSSA - resolved - completed abx course Evin pneumonia - resolved -completed antifungal course Staph Hominis Bacteremia likely 2/2 CVC related - resolved - s/p removed line. - completed abx course Right Buttock Stage 3 pressure injury Lower back unstageable pressure injury Abdominal folds fungal dermatitis Bilateral lower extremity/feet dermatitis -Wound care following Concern for Malnutrition - Low albumin and protein w/ multiple wounds and prolonged hospital stay - Continues to have good diet - Dietary continuing to follow - last note 07/01 - Will continue to assess Peripheral Neuropathy - gabapentin 300 mg TID Hyperkalemia - resolved -Will continue to monitor Dispo: will be sent to IP rehab in [place] today 07/03 pending TCC note - Goals of Care: FULL CODE - DVT Prophylaxis: lovenox 40 q24h - creatinine clearance > 30 - GI Prophylaxis: Protonix daily - Diet: Fluid Restriction - 1800mL Resident Physician Statement I have discussed the care of Jesusita England, including pertinent history and exam findings, with themedical student and have reviewed the roach elements of all parts of the encounter. I agree with the assessment, plan, and orders as documented by the medical student and have made adjustments as necessary. Arthur Mckeon MD I have discussed the care of Jesusita England with the medical student and/or resident. I have personally taken a history, examined the patient, and performed the associated medical decision making activities. I have reviewed & verified the attested documentation. Unless otherwise noted above, this documentation reflects the history, physical exam, and medical decision making that I performed myself. Please see blue and bolded text for my personal highlights or additions to the note. Patient seen and examined by myself on 07/03/21 * Eliza Latosha P - 07/02/2021 12:22 PM EDT Images from the original note were not included. Nephrology Progress Note Patient: Jesusita England Room number: [id number] Date of Admit: 06/03/2021 LOS: 29 days Admitting physician: Ruth Soni DO Referring physician: Ruth Soni DO Assessment/Plan: 1. Non-oliguric MIRIAM - etiology likely ATN 2/2 vancomycin-induced renal toxicity - vanc level 06/26 at 58.2 which is supratherapeutic - risk factors: morbidly obese with exposure to loop diuretics, zosyn - sCr peak at 3.2, improving now 2.26 - ok to loosen FR 1.8 L - renal us no obstruction (L kidney large ? Normal variant) 2. Hyponatremia, multifactorial (vol overload, MIRIAM) - urine studies from 06/24 demonstrated urine Na < 5 and urine osm > 100 more suggestive of intravascular depletion - improved Na 139 today - continue to monitor 3. Hyperkalemia - improving, low K diet 4. Acid/base - bicarb 22 - no active issues, will continue to monitor 5. BP/volume status - BP has continued to remain WNL - not on any BP meds - difficult to assess volume status clinically 6. Iron Def Anemia - Iron 27 this admission w/ Tsat 10; Hgb stable - ferrous sulfate supplementation 7. Vit D Deficiency - 25-hydroxy Vit D 19 this admission - continue 2000U daily 8. Sepsis/Acute Hypoxic Respiratory Failure - d/t COVID-19 PNA, MRSA/MSSA/potentially evin VAP, E. Coli UTI, and staph hominis bacteremia - MIGUEL, asthma, and morbid obesity - Sepsis resolved. - O2 requirements improved, now only on 3 L NC. 9. Edema - trace noted B/L; also has Hx of lymphedema - albumin 2.8 - if need to expand intravascular volume, add albumin Continued avoidance of nephrotoxins. Medication dose adjustment: CrCl < 37 ml/min Will follow along as directed. [facility] Pager [phone] [facility] [place] [phone] HPI: Jesusita England is a 51 y.o. female with chronic stable problems: MIGUEL, GERD, asthma, iron deficiency and morbid obesity, admitted 06/01 initially for covid 19 PNA, requiring intubation. Course complicated by MSSA and MRSA PNA, Evin VAP, E. Coli cystitis, and staph hominis bacteremia. Initial admit diagnosis: Pneumonia due to COVID-19 virus [U07.1, J12.82] Interval history/events: no acute events overnight,still on 3L O2 but stable, no inc SOB. Denies any nausea/vomiting/hiccups Past Medical History: Diagnosis Date Allergic rhinitis Anemia Chronic diarrhea GERD (gastroesophageal reflux disease) Joint pain Morbid obesity (HCC) MIGUEL (obstructive sleep apnea) Medications: MARS reviewed. Review of Systems: All other ROS negative except those noted above. Physical Exam: Vitals: 07/01/21 1808 07/02/21 0105 07/02/21 0531 07/02/21 1029 BP: (!) 142/87 136/82 Pulse: 108 81 Resp: 16 16 17 22 Temp: 97.4 F (36.3 C) 96.4 F (35.8 C) TempSrc: Temporal Temporal SpO2: 95% 96% 90% Weight: Height: Admission weight: (!) 418 lb (189.6 kg) Wt Readings from Last 3 Encounters: 06/25/21 (!) 419 lb 8 oz (190.3 kg) 06/01/20 (!) 418 lb (189.6 kg) Date 07/02/21 0000 - 07/02/21 2359 Shift 8718-4504 8377-4964 6785-1800 24 Hour Total INTAKE P.O.(mL/kg/hr) 200 200 Shift Total(mL/kg) 200(1.1) 200(1.1) OUTPUT Urine(mL/kg/hr) 900 900 Shift Total(mL/kg) 900(4.7) 900(4.7) Weight (kg) 190.3 190.3 190.3 190.3 General Appearance no acute distress, comfortable appearing, looks stated age. Alert and oriented x3, morbidly obese HEENT Neck anicteric sclera, moist mucus membranes, normal external ears/nares, no facial edema, EOMI supple neck, midline trachea without tracheal deviation, no discernible JVD, no palpable cervical or supraclavicular lymph nodes Chest symmetric, normal shape/expansion, no chest wall/sternal tenderness Heart RRR, no audible pericardial rubs, no audible murmurs, no palpable LV heave. Lungs Diffuse rales on auscultation, on 3L NC, unlabored respirations without conversational dyspnea, no accessory muscle use Abdomen Skin Obese, soft without distension, normal bowel sounds, no abdominal striae, no rebound or guarding no rash or subcutaneous nodules, warm and dry skin with good turgor Musculoskeletal no synovitis or joint effusions noted, trace leg edema, normal hair distribution onlegs purewick present Neurologic no resting tremor, asterixis or ankle clonus. Able to follow commands. Psychiatric mood and affect animated, insight and judgment intact. Memory recall intact LABS: Recent Labs 06/30/2120107/01/2132207/02/21521 WBC 6.8 5.5 4.9 HGB 9.3* 8.8* 8.7* HCT 28.8* 27.4* 27.4* MCV 74.1* 74.4* 75.1* PLT 206 216 224 Lab Results Component Value Date IRON 27 (L) 06/23/2021 TIBC 273 06/23/2021 FERRITIN 358 (H) 06/21/2021 No results found for: [id number] Recent Labs 06/30/2120107/01/2132207/02/21 05 NA 134* 135 139 K 5.2* 5.0 5.1 CL 104 106 107 CO2 24 24 26 BUN 58* 61* 60* CREATININE 2.61* 2.36* 2.26* GLUCOSE 119* 109* 95 CALCIUM 8.5 8.4 8.8 MG 1.9 1.8 1.7 PHOS 6.5* 6.4* 6.1* ANIONGAP 6 4 6 Lab Results Component Value Date CALCIUM 8.8 07/02/2021 PHOS 6.1 (H) 07/02/2021 Diagnostic Studies: CXR: reviewed in PACS. Personally reviewed available data [labs, MARS, radiologic studies, and electronic records]. Pleasecall with any questions. * Humaira Michael MD - 07/02/2021 12:14 PM EDT Images from the original note were not included. [facility] [place], Pulmonary Critical Care and Sleep Medicine Patient - Jesusita England, Age - 51 y.o. - 1970 Room Number - [id number] Consulting - Ruth Soni DO Primary Care Physician - No primary care provider on file. Date of Admission - 06/03/2021 1:32 PM Hospital Day - 29 Subjective/Events Past 24 hours/ROS Jesusita England is a 51 y.o. 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 Patient was intubated from 06/04-06/18 and received remdesevir and decadron. Overnight, the patient was placed on her home CPAP settings and desaturated multiple times throughout the night, as low as 78%. BiPAP was not utilized. Today she is resting comfortably in bed on roomair. Supplemental oxygen was removed this morning and she was satting at 96%. She continues to endorse shortness of breath and a productive cough, but reports both are slowly improving. She is hopeful to go to a rehab facility to work on her lower body weakness. All other systems reviewed Objective Vitals Vitals: BP 136/82 Pulse 81 Temp 96.4 F (35.8 C) (Temporal) Resp 22 Ht 5' 5 (1.651 m) Wt (!) 419 lb 8 oz (190.3 kg) SpO2 90% BMI 69.81 kg/m Pulse Ox: SpO2 Av % Min: 90 % Max: 100 % Supplemental O2: O2 Flow Rate (L/min): 3 L/min I/O 24HR INTAKE/OUTPUT: Intake/Output Summary (Last 24 hours) at 07/02/2021 1214 Last data filed at 07/02/2021 1058 Gross per 24 hour Intake 200 ml Output 900 ml Net -700 ml No data found. Exam General Appearance Awake, alert, oriented, obese, in no acute distress. On room air. HEENT - normocephalic, atraumatic, sclarea is anicteric, conjunctiva is pink, nasal mucosa is normal, no congestion, external ears are intact. Neck - Supple, trachea midline, full range of motion. Lymph nodes- no cervical, clavicular, or posterior auricular lymphadenopathy Lungs Normal effort. Percussion normal. Good diaphragmatic excursion. Lungs clear to auscultation bilaterally, no wheezes, rales or rhonchi, aeration good Cardiovascular - Heart sounds are normal. Regular rate and rhythm, without murmurs, rubs or gallops Abdomen - Soft, nontender, nondistended, no masses or organomegaly Neurologic - Awake, alert, follows commands. Cranial nerves II-XII are intact. Chronic R sided weakness appreciated. Skin - No bruising or bleeding, normal turgor, no rashes or lesions Extremities - Bilateral lower extremity edema; no clubbing, cyanosis Peripheral pulses- present bilaterally and symmetric Psychiatric: appropriate, oriented to person, place and time/date Meds Vitamin D 2,000 Units Oral Daily ferrous sulfate 325 mg Oral Every Other Day ipratropium-albuterol 1 ampule Inhalation BID fluticasone 2 spray Each Nostril BID sodium chloride flush 10 mL Intracatheter Q12H heparin flush 250 Units Intracatheter Q12H heparin flush 250 Units Intravenous 2 times per day gabapentin 300 mg Oral Daily guaiFENesin 600 mg Oral BID sodium chloride (Inhalant) 4 mL Nebulization TID cholestyramine 0.5 packet Oral Daily mometasone-formoterol 2 puff Inhalation BID pantoprazole 40 mg Oral QAM AC sodium hypochlorite Irrigation Daily mineral oil-hydrophilic petrolatum Topical BID collagenase Topical Daily stomahesive in petrolatum Topical BID melatonin 3 mg Oral Nightly sennosides-docusate sodium 2 tablet Oral BID polyethylene glycol 17 g Oral BID miconazole Topical BID enoxaparin 40 mg Subcutaneous BID dextrose 100 mL/hr (06/24/212109) sodium chloride 25 mL (06/16/21927) sodium chloride flush, heparin flush, sodium chloride flush, sodium chloride, sodium chloride (Inhalant), phenol, hydrOXYzine, ipratropium-albuterol, benzocaine, traZODone, bisacodyl, stomahesive in petrolatum, glucose, dextrose, glucagon (rDNA), dextrose, sodium chloride, ondansetron OR ondansetron, magnesium hydroxide, acetaminophen OR acetaminophen, hydrocortisone-aloe Labs CBC Recent Labs 07/02/21 0522 WBC 4.9 HGB 8.7* HCT 27.4* MCV 75.1* PLT 224 BMP: Recent Labs 07/02/21 0522 NA 139 K 5.1 CL 107 CO2 26 BUN 60* CREATININE 2.26* GLUCOSE 95 MG 1.7 PHOS 6.1* ABG: No results for input(s): PH, PCO2, PO2, HCO3, O2SAT in the last 72 hours. No results found for: IFIO2, MODE, SETTIDVOL, SETPEEP LIVER PROFILE Recent Labs 07/02/21 0522 AST 25 ALT 23 BILIDIR 0.0 BILITOT 0.5 ALKPHOS 70 INR Lab Results Component Value Date INR 1.0 06/03/2021 PROTIME 10.8 06/03/2021 PTT Lab Results Component Value Date APTT 26.2 06/03/2021 Cultures Blood cultures from 06/19: no growth Respiratory cultures from 06/19: few normal respiratory pretty and staph aureus Radiology CXR: No recent images Reviewed (See actual reports for details) Active Hospital Problem List Active Hospital Problems Diagnosis Date Noted Ventilator associated pneumonia (HCC) [J95.851] 07/01/2021 Evin albicans infection [B37.9] 07/01/2021 MRSA pneumonia (HCC) [J15.212] 07/01/2021 MSSA (methicillin susceptible Staphylococcus aureus) pneumonia ([facility]) [J15.211] 07/01/2021 Obstructive sleep apnea syndrome [G47.33] 06/30/2021 Body mass index (BMI) of 70 or greater in adult ([facility]) [Z68.45] 06/30/2021 Morbid obesity ([facility]) [E66.01] 06/30/2021 MIRIAM (acute kidney injury) ([facility]) [N17.9] Hyponatremia [E87.1] Poor intravenous access [Z78.9] Pressure injury of right buttock, stage 3 ([facility]) [L89.313] Insomnia [G47.00] Gastroesophageal reflux disease without esophagitis [K21.9] Angular cheilitis [K13.0] COVID-19 [U07.1] Anxiety [F41.9] Palliative care encounter [Z51.5] Pneumonia due to COVID-19 virus [U07.1, J12.82] 06/03/2021 Iron deficiency anemia due to chronic blood loss [D50.0] 06/02/2021 Assessment and Plan 51F w/ PMH COVID 19 pneumonia and 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 - Continue Dulera and aerosols - Use BiPAP at current settings (13/05) - Planned for discharge to rehab - Home O2 eval prior to discharge from rehab - Follow up as outpatient in COVID clinic - Repeat CT chest in 8-12 weeks for surveillance DVT prophylaxis: [x] Lovenox [] Heparin [] SCDs [x] Encourage ambulation [] Already on Anticoagulation Advance Directive: Full Code Discharge planning: Discharge to rehab when able Case discussed with nurse and patient/family. Questions and concerns addressed. Associated attestation - Fish Kahn MD - 07/02/2021 1:25 PM EDT I have personally seen the patient and examined along with the resident team. I personally obtainedthe roach and relevent portions of the history and performed physical exam. I reviewed the chart including MAR , labs and radiology and discussed the patient's plan of action with the resident. This note reflects my plan of care as I have edited the note to reflect my findings and my assessment and plan. Post covid pneumonitis Super morbid obesity with OHS/ pickwickian physiology - Will need BiPAP instead of CPAP overnight while here and outpatient PSG as outpatient - Follow up in COVID clinic and Repeat CT in 8 - 12 weeks - Tolerating RA at rest - May qualify for overnight O2 via BiPAP machine , will order overnight oxymetry * Josesito Joseph Jr., MD - 07/02/2021 9:21 AM EDT Images from the original note were not included. Med Team Progress Note Jesusita England : 1970(51 y.o.) Date: July 02, 2021 Med Team: Jennifer Attending: Dr. Joseph Chief Complaint: SOB Subjective: - Overnight, the patient was put on her CPAP with the settings she used previously at home. Her oxygen desaturated multiple times down to as low as 78% throughout the night. - Currently, the patient is resting comfortably in no acute distress. She continues to have shortness of breath with a productive cough but notes no worsening of her condition. Patient seen and examined on teaching rounds. I agree with the above. Review of Systems Constitutional: Negative for chills, fatigue and fever. HENT: Negative for ear pain, hearing loss, sinus pain, sore throat and trouble swallowing. Eyes: Negative for pain and discharge. Respiratory: Positive for cough and shortness of breath. Cardiovascular: Positive for leg swelling. Gastrointestinal: Negative for abdominal pain, constipation, diarrhea, nausea and vomiting. Endocrine: Negative for polyphagia and polyuria. Genitourinary: Negative for difficulty urinating, dysuria and urgency. Musculoskeletal: Negative for back pain, joint swelling and neck pain. Skin: Positive for rash (mild rash on medial side of left salvador). Neurological: Negative for dizziness, weakness, light-headedness and numbness. Psychiatric/Behavioral: Negative for agitation and confusion. Scheduled Meds: Vitamin D 2,000 Units Oral Daily ferrous sulfate 325 mg Oral Every Other Day ipratropium-albuterol 1 ampule Inhalation BID fluticasone 2 spray Each Nostril BID sodium chloride flush 10 mL Intracatheter Q12H heparin flush 250 Units Intracatheter Q12H heparin flush 250 Units Intravenous 2 times per day gabapentin 300 mg Oral Daily guaiFENesin 600 mg Oral BID sodium chloride (Inhalant) 4 mL Nebulization TID cholestyramine 0.5 packet Oral Daily mometasone-formoterol 2 puff Inhalation BID pantoprazole 40 mg Oral QAM AC sodium hypochlorite Irrigation Daily mineral oil-hydrophilic petrolatum Topical BID collagenase Topical Daily stomahesive in petrolatum Topical BID melatonin 3 mg Oral Nightly sennosides-docusate sodium 2 tablet Oral BID polyethylene glycol 17 g Oral BID miconazole Topical BID enoxaparin 40 mg Subcutaneous BID Continuous Infusions: dextrose 100 mL/hr (06/24/212109) sodium chloride 25 mL (06/16/21927) PRN meds used in last 24hrs: NA Objective: BP 136/82 Pulse 81 Temp 96.4 F (35.8 C) (Temporal) Resp 17 Ht 5' 5 (1.651 m) Wt (!) 419 lb 8 oz (190.3 kg) SpO2 96% BMI 69.81 kg/m Physical Exam Constitutional: General: She is not in acute distress. Appearance: She is obese. HENT: Head: Normocephalic and atraumatic. Right Ear: External ear normal. Left Ear: External ear normal. Nose: Nose normal. Mouth/Throat: Mouth: Mucous membranes are moist. Pharynx: Oropharynx is clear. Eyes: General: Right eye: No discharge. Left eye: No discharge. Extraocular Movements: Extraocular movements intact. Pupils: Pupils are equal, round, and reactive to light. Cardiovascular: Rate and Rhythm: Normal rate and regular rhythm. Pulses: Normal pulses. Heart sounds: Normal heart sounds. No murmur heard. Pulmonary: Effort: Pulmonary effort is normal. Breath sounds: Normal breath sounds. No wheezing or rales. Abdominal: General: Abdomen is flat. There is no distension. Palpations: Abdomen is soft. Tenderness: There is no abdominal tenderness. Musculoskeletal: General: Normal range of motion. Cervical back: Normal range of motion and neck supple. No rigidity or tenderness. Right lower leg: Edema present. Left lower leg: Edema present. Skin: General: Skin is warm and dry. Capillary Refill: Capillary refill takes less than 2 seconds. Findings: No bruising or rash. Neurological: General: No focal deficit present. Mental Status: She is alert and oriented to person, place, and time. Sensory: No sensory deficit. Motor: Weakness (Chronic r sided weakness improving) present. Psychiatric: Mood and Affect: Mood normal. Select Labs within last 24 hours Lab Results Component Value Date/Time WBC 4.9 07/02/2021 05:22 AM Hemoglobin 8.7 (L) 07/02/2021 05:22 AM Hematocrit 27.4 (L) 07/02/2021 05:22 AM Platelets 224 07/02/2021 05:22 AM MCV 75.1 (L) 07/02/2021 05:22 AM Lab Results Component Value Date/Time Sodium 139 07/02/2021 05:22 AM Potassium 5.1 07/02/2021 05:22 AM Chloride 107 07/02/2021 05:22 AM CO2 26 07/02/2021 05:22 AM BUN 60 (H) 07/02/2021 05:22 AM CREATININE 2.26 (H) 07/02/2021 05:22 AM Glucose 95 07/02/2021 05:22 AM Calcium 8.8 07/02/2021 05:22 AM Magnesium 1.7 07/02/2021 05:22 AM Phosphorus 6.1 (H) 07/02/2021 05:22 AM Lab Results Component Value Date/Time AST 25 07/02/2021 05:22 AM ALT 23 07/02/2021 05:22 AM Total Protein 6.1 (L) 07/02/2021 05:22 AM Albumin,Serum 2.8 (L) 07/02/2021 05:22 AM Total Bilirubin 0.5 07/02/2021 05:22 AM Alkaline Phosphatase 70 07/02/2021 05:22 AM Assessment and Plan: Acute Respiratory Failure 2/2 COVID PNA + MSSA PNA + Moderate Pulm edema/Effusion MIGUEL Asthma Morbid Obesity - with probable obesity hypoventilation syndrome - S/p remdesevir/decadron. S/p intubation from 06/04-06/18. - Cont duonebs BID + dulera BID - Pt O2 sat 96% on 3 L - Wean oxygen as able - Incentive spirometry to restrenghten lungs and open airway - mucinex, acapella, nebulized hypertonic saline to break up mucous - Cont Flonase for nasal symptoms - Assessed O2 sat while on CPAP with at-home settings; dropped down to 78% multiple times - Plan for BiPAP and outpatient sleep study - / settings - 4L oxygen overnight, 2L with exertion Agree MIRIAM 2/2 Lasix, Vancomycin toxicity/Intravascular volume depletion - Improving - sCr 2.26, down from 2.36 yesterday - Urine Na <5 suggests volume depletion is contributing to MIRIAM, but trends more consistent with vanco ATN - Increased fluid restriction from 1.5 to 1.8 L per Nephrology - Will continue to follow Agree Hypovolemic Hyponatremia - resolved - Na 136 today up from 135 -Continue monitoring - 1.5 L fluid restriction per Nephrology - will discuss with nephrology to try to lift restriction Hyperphosphatemia 2/2 MIRIAM -Phos 6.1 this AM, down from 6.4 -Repeat Phos tomorrow Debility 2/2 Intubation and ICU admission - PT/OT - patient appears to be highly motivated to increase physical activity - PT recommends IP rehab - OT recommends IP rehab Anemia with low MCV 2/2 iron deficiency - stable - Iron 27; Sat 10; TIBC 273 indicates iron deficiency anemia - Ferrous sulfate 325 mg PO every other day VAP 2/2 MRSA + now MSSA - resolved - completed abx course Evin pneumonia - resolved -completed antifungal course Staph Hominis Bacteremia likely 2/2 CVC related - resolved - s/p removed line. - Abx completed, will continue to monitor Right Buttock Stage 3 pressure injury Lower back unstageable pressure injury Abdominal folds fungal dermatitis Bilateral lower extremity/feet dermatitis -Wound care following Concern for Malnutrition - Low albumin and protein w/ multiple wounds and prolonged hospital stay - Continues to have good diet - Dietary continuing to follow - last note 06/25/21 - Will continue to assess Peripheral Neuropathy - gabapentin 300 mg TID Hyperkalemia - resolved -Will continue to monitor - Goals of Care: FULL CODE - DVT Prophylaxis: lovenox 40 q24h - creatinine clearance > 30 - GI Prophylaxis: Protonix daily - Diet: Fluid Restriction - 1800mL Dispo: Maintain on general medicine service pending placement at IP rehab. Resident Physician Statement I have discussed the care of Jesusita England, including pertinent history and exam findings, with themedical student and have reviewed the roach elements of all parts of the encounter. I agree with the assessment, plan, and orders as documented by the medical student and have made adjustments as necessary. Arthur Mckeon MD I have discussed the care of Jesusita England with the medical student and/or resident. I have personally taken a history, examined the patient, and performed the associated medical decision making activities. I have reviewed & verified the attested documentation. Unless otherwise noted above, this documentation reflects the history, physical exam, and medical decision making that I performed myself. Please see blue and bolded text for my personal highlights or additions to the note. Patient seen and examined by myself on 07/02/21 I spent over 51% of total time >25 minutes counseling/coordinating care and provided discussion regarding plans as above and plan for DC to SNF once precert ready. * Latosha Kay - 07/01/2021 5:48 PM EDT Images from the original note were not included. Nephrology Progress Note Patient: Jesusita England Room number: [id number] Date of Admit: 06/03/2021 LOS: 28 days Admitting physician: Ruth Soni DO Referring physician: Ruth Soni DO Assessment/Plan: 1. Non-oliguric MIRIAM - etiology likely ATN 2/2 vancomycin-induced renal toxicity - vanc level 06/26 at 58.2 which is supratherapeutic - morbidly obese with exposure to loop diuretics, zosyn - strict I/O's - sCr peak at 3.2, improving now 2.36 - ok to decrease fluid restriction from 1.2 -> 1.5 L 2. Hyponatremia, multifactorial (vol overload, MIRIAM) - urine studies from 06/24 demonstrated urine Na < 5 and urine osm > 100 more suggestive of intravascular depletion - improved Na 135 today - continue to monitor 3. Hyperkalemia - improving 4. Acid/base - bicarb 24 - no active issues, will continue to monitor 5. BP/volume status - BP has continued to remain WNL - not on any BP meds - difficult to assess volume status clinically 6. Iron Def Anemia - Iron 27 this admission w/ Tsat 10 - ferrous sulfate supplementation 7. Vit D Deficiency - 25-hydroxy Vit D 19 this admission - continue 2000U daily 8. Sepsis/Acute Hypoxic Respiratory Failure - d/t COVID-19 PNA, MRSA/MSSA/potentially evin VAP, E. Coli UTI, and staph hominis bacteremia - MIGUEL, asthma, and super morbid obesity - Sepsis resolved. - O2 requirements improved, now only on 2 L NC. 9. Edema - trace noted B/L; also has Hx of lymphedema - albumin 2.8 - if need to expand intravascular volume, add albumin Continued avoidance of nephrotoxins. Medication dose adjustment: CrCl < 37 ml/min Will follow along as directed. Attendin yo with MIGUEL, GERD, asthma, iron deficiency and morbid obesity, admitted 06/01 initiallyfor covid 19 PNA, requiring intubation. Course complicated by MSSA and MRSA PNA, Evin VAP, E. Coli cystitis, and staph hominis bacteremia. Consulted for MIRIAM and hyponatremia. In terms of MIRIAM, no labs available prior to admit, (06/01) Cr 0.67 and was stable running 0.5-0.9 until 06/24 1.26 and has progressively increased since then, peaked at 3.2 now 2.36. Good UO. Was getting lasix from 06/06 to 06/23 (help due to MIRIAM), then (06/25) lasix 40iv x 1. Getting Abx zyvox, zosyn, then Vanc started at 2q q12 last 06/19 dc 06/26 due to vanc level 58. No low BP, no exposure to IV dye, renal us no obstruction (L kidney large ? Normal variant) - suspect MIRIAM secondary to Vancomycin toxicity. Pt has risk factors that predispose her to it: Large BMI,high dose Vanc, concomitant use of Zosyn/lasix & timing of devt of MIRIAM (can start 4 days post-exposure) along with high level are all supportive of this. Levels downtrending. Hyponatremia: Pt did not have issue with hyponatremia (in fact was running higher Na initially). Was getting lasix 06/06-06/23, then (06/24) Na 131 dropped to 124. Got 1 dose lasix (06/25). Just on FR (has not received lasix) and O2 stable 2-3 L. last Na stable 135. Okay to inc FR to 1500 mL Latosha Kay MD Pager [phone] [facility] ofc [phone] HPI: Jesusita England is a 51 y.o. female with chronic stable problems: MIGUEL, GERD, asthma, iron deficiency and morbid obesity, admitted 06/01 initially for covid 19 PNA, requiring intubation. Course complicated by MSSA and MRSA PNA, Evin VAP, E. Coli cystitis, and staph hominis bacteremia. Initial admit diagnosis: Pneumonia due to COVID-19 virus [U07.1, J12.82] Interval history/events: no acute events overnight, patient seen and examined during rounds and sounds much better than prior days, continues to have appropriate urine output and SOB continues to improve as well, sCr downtrending with vitals stable Past Medical History: Diagnosis Date Allergic rhinitis Anemia Chronic diarrhea GERD (gastroesophageal reflux disease) Joint pain Morbid obesity (HCC) MIGUEL (obstructive sleep apnea) Medications: MARS reviewed. Review of Systems: All other ROS negative except those noted above. Physical Exam: Vitals: 07/01/21 1314 07/01/21 1319 07/01/21 1634 07/01/21 1641 BP: Pulse: Resp: 18 18 18 18 Temp: TempSrc: SpO2: 99% 99% 100% 100% Weight: Height: Admission weight: (!) 418 lb (189.6 kg) Wt Readings from Last 3 Encounters: 06/25/21 (!) 419 lb 8 oz (190.3 kg) 06/01/20 (!) 418 lb (189.6 kg) Date 07/01/21 0000 - 07/01/21 2359 Shift [id number] 6756-1606 0436-9759 24 Hour Total INTAKE P.O.(mL/kg/hr) 400(0.3) 400 Shift Total(mL/kg) 400(2.1) 400(2.1) OUTPUT Urine(mL/kg/hr) 700(0.5) 700 Shift Total(mL/kg) 700(3.7) 700(3.7) Weight (kg) 190.3 190.3 190.3 190.3 General Appearance no acute distress, comfortable appearing, looks stated age. Alert and oriented x3, morbidly obese HEENT Neck anicteric sclera, moist mucus membranes, normal external ears/nares, no facial edema, EOMI supple neck, midline trachea without tracheal deviation, no discernible JVD, no palpable cervical or supraclavicular lymph nodes Chest symmetric, normal shape/expansion, no chest wall/sternal tenderness Heart RRR, no audible pericardial rubs, no audible murmurs, no palpable LV heave. Lungs Diffuse rales on auscultation, on 3L NC, unlabored respirations without conversational dyspnea, no accessory muscle use Abdomen Skin Obese, soft without distension, normal bowel sounds, no abdominal striae, no rebound or guarding no rash or subcutaneous nodules, warm and dry skin with good turgor Musculoskeletal no synovitis or joint effusions noted, trace leg edema, normal hair distribution onlegs purewick present Neurologic no resting tremor, asterixis or ankle clonus. Able to follow commands. Psychiatric mood and affect animated, insight and judgment intact. Memory recall intact LABS: Recent Labs 06/29/21 0630 06/30/21 0202 07/01/21 0323 WBC 4.6 6.8 5.5 HGB 11.1* 9.3* 8.8* HCT 35.1 28.8* 27.4* MCV 75.5* 74.1* 74.4* PLT 163 206 216 Lab Results Component Value Date IRON 27 (L) 06/23/2021 TIBC 273 06/23/2021 FERRITIN 358 (H) 06/21/2021 No results found for: [id number] Recent Labs 06/29/21 0630 06/30/21 0202 07/01/21 0323 NA 131* 132* 134* 135 K 5.0 5.0 5.2* 5.0 CL 100 100 104 106 CO2 25 25 24 24 BUN 58* 57* 58* 61* CREATININE 2.86* 2.86* 2.61* 2.36* GLUCOSE 114* 115* 119* 109* CALCIUM 8.5 8.5 8.5 8.4 MG 2.0 1.9 1.8 PHOS 6.3* 6.5* 6.4* ANIONGAP 7 7 6 4 Lab Results Component Value Date CALCIUM 8.4 07/01/2021 PHOS 6.4 (H) 07/01/2021 No components found for: [id number] No results for input(s): COLORU, CLARITYU, PH, PHUR, LABSPEC, GLUCOSEU, BLOODU, LEUKOCYTESUR, NITRITE, BILIRUBINUR, UROBILINOGEN, RBCUA, WBCUA, BACTERIA, AMORPHOUS, CRYSTAL in the last 72 hours. Invalid input(s): PROTEINUA, KEYTONESU, CASTS Diagnostic Studies: CXR: reviewed in PACS. Personally reviewed available data [labs, MARS, radiologic studies, and electronic records]. Pleasecall with any questions. * Venus Dial RD, LD - 07/01/2021 5:04 PM EDT Comprehensive Nutrition Assessment Type and Reason for Visit: Reassess Nutrition Recommendations/Plan: 1. Continue with current diet. 2. Monitor po intake/nutritional status. Nutrition Assessment: Pt tranferred from ICU on 06/20/21, no longer in Covid isolation, continues onregular diet but low phos diet with FR added. O2 decreased to 2 Liters today. Plans for [facility] per [facility] notes. Nephro following: ARF - likely due to ATN from Vancomycin toxicity and intravascular volume depletion. Pt endorses good intake/appetite, discussed with RD phosphorus restriction; RD provided low phosphorus nutrition information, written and oral. Malnutrition Assessment: Malnutrition Status: At risk for malnutrition (Comment) (pt extubated and tolerating oral diet without issues, [employer] following- regular/thin liquids recommendations, pt weight has remained stable during admit, no significant physical signs) Context: Acute Estimated Daily Nutrient Needs: Energy (kcal): 1250-1420kcals/day; Weight Used for Energy Requirements: [place] Protein (g): 68-85gm pro/day; Weight Used for Protein Requirements: [place] Fluid (ml/day): per MD Recommendations; Method Used for Fluid Requirements: 1 ml/kcal Nutrition Related Findings: +BS, abd soft, NT, +2 BLE edema. Wounds: Multiple, Pressure Injury, Stage II Current Nutrition Therapies: ADULT DIET; Regular; Low Phosphorus (Less than 1000 mg); 1200 ml Anthropometric Measures: Height: 5' 5 (165.1 cm) Current Body Weight: 419 lb (190.1 kg) (06/25) Admission Body Weight: 418 lb (189.6 kg) (no method 06/03) Usual Body Weight: 418 lb (189.6 kg) (05/31/20 per [facility]) [place] Body Weight: 125 lbs; % [place] Body Weight 335.2 % BMI: 69.7 Adjusted Body Weight: ; No Adjustment BMI Categories: Obese Class 3 (BMI 40.0 or greater) BMP: Recent Labs 06/29/21 0630 06/30/21 0202 07/01/21 0323 NA 131* 132* 134* 135 K 5.0 5.0 5.2* 5.0 CL 100 100 104 106 CO2 25 25 24 24 BUN 58* 57* 58* 61* CREATININE 2.86* 2.86* 2.61* 2.36* GLUCOSE 114* 115* 119* 109* CALCIUM 8.5 8.5 8.5 8.4 MG 2.0 1.9 1.8 PHOS 6.3* 6.5* 6.4* BUN/Cr - elevated. Cr trending down. Phos - elevated. HEPATIC: Recent Labs 06/30/21 020 AST 29 ALT 30 BILITOT 0.4 ALKPHOS 83 Nutrition Diagnosis: Inadequate energy intake related to impaired respiratory function (COVID +) as evidenced by NPO or clear liquid status due to medical condition, intubation Altered nutrition-related lab values related to endocrine dysfuntion, renal dysfunction as evidenced by lab values Nutrition Interventions: Food and/or Nutrient Delivery: Continue Current Diet Nutrition Education/Counseling: Education completed Coordination of Nutrition Care: Continue to monitor while inpatient Goals: Pt consumes >50-75% meals consistently. Nutrition Monitoring and Evaluation: Behavioral-Environmental Outcomes: None Identified Food/Nutrient Intake Outcomes: Food and Nutrient Intake Physical Signs/Symptoms Outcomes: Biochemical Data, Chewing or Swallowing, GI Status, Constipation,Fluid Status or Edema, Weight, Skin, Nutrition Focused Physical Findings Discharge Planning: Too soon to determine Contact: Pager #[phone] * Gutiérrez Senia Carolann, JUICE WEIGHER - 07/01/2021 10:33 AM EDT Physical Therapy Facility/Department: [facility] Daily Treatment Note NAME: Jesusita England : 1970 Date of Service: 07/01/2021 Discharge Recommendations: IP Rehab Assessment Body structures, Functions, Activity limitations: Decreased functional mobility ;Decreased ADL status;Decreased strength;Decreased balance;Decreased endurance Assessment: Pt present with the above deficits requiring max assist x 2 for bed mobility. pt more SOBOE today, cues for deep breathing. Overall improved bed mobility today. Due to weakness and decreased endurance rec rehab upon discharge. Specific instructions for Next Treatment: functional strength/endurance training. REQUIRES PT FOLLOW UP: Yes Activity Tolerance Activity Tolerance: Patient limited by fatigue;Patient limited by endurance Patient Diagnosis(es): The encounter diagnosis was Pressure injury of right buttock, stage 3 (HCC). has a past medical history of Allergic rhinitis, Anemia, Chronic diarrhea, GERD (gastroesophageal reflux disease), Joint pain, Morbid obesity ([facility]), and MIGUEL (obstructive sleep apnea). has a past surgical history that includes Cholecystectomy; hip surgery; and Heel spur surgery. Restrictions Restrictions/Precautions Restrictions/Precautions: Fall Risk Required Braces or Orthoses?: No Position Activity Restriction Other position/activity restrictions: COVID 19- off isolation; [facility] bed; 3LO2 DC; [facility] Subjective General Chart Reviewed: Yes Family / Caregiver Present: Yes (sister) Subjective Subjective: Pt in bed, HOB elevated and agreeable to PT. Pain Screening Patient Currently in Pain: Denies Objective Bed mobility Rolling to Left: Moderate assistance Supine to Sit: Maximum assistance;2 Person assistance Sit to Supine: Maximum assistance;2 Person assistance Scooting: Maximal assistance;2 Person assistance Comment: HOB elevated, bed rails and slide assist sheet used. Balance Comments: sitting at EOB for several mins to focus on strengthening and endurance, BUE support, mild retrograde balance, SOBOE, cues for pursed lip breathing, min assist x 2 and progressed to close supervision for short periods. Exercises Knee Long Arc Quad: x 5 reps each Other exercises Other exercises?: Yes Other exercises 1: I.S. x 10 reps, 1,000-1,250 AM-PAC Score [facility] Inpatient Mobility Raw Score : 7 (07/01/211032) AM-PAC Inpatient T-Scale Score : 26.42 (07/01/211032) Mobility Inpatient CMS 0-100% Score: 92.36 (07/01/211032) Mobility Inpatient CMS G-Code Modifier : CM (07/01/211032) Goals Short term goals Time Frame for Short term goals: 2 weeks Short term goal 1: bed mobility min assist.; NOT MET Short term goal 2: transfers mod assist.; NOT MET Short term goal 3: sitting balance goodstatic standing x 2 min with min. assist; NOT MET Short term goal 4: ambulate 15 ft with device, mod assist.; NOT MET Short term goal 5: secretion clearance, IS 1500 ml and HEP independent; PROGRESSING Patient Goals Patient goals : To get stronger. Plan Plan Times per week: 5x/wk Plan weeks: 2 Specific instructions for Next Treatment: functional strength/endurance training. Current Treatment Recommendations: Strengthening, Transfer Training, Balance Training, Gait Training, Functional Mobility Training, Endurance Training Plan Comment: Cont PT POC Safety Devices Type of devices: All fall risk precautions in place, Call light within reach, Patient at risk for falls, Left in bed Restraints Initially in place: No Therapy Time Individual Concurrent Group Co-treatment Time In 923 Time Out 0959 Minutes 35 Timed Code Treatment Minutes: 30 Minutes (fa x2) Variance: 5 (doctor) Senia Gutiérrez PTA * Janet Mora OTA - 07/01/2021 9:59 AM EDT Occupational Therapy Facility/Department: [facility] Daily Treatment Note NAME: Jesusita England : 1970 Date of Service: 07/01/2021 Discharge Recommendations: IP Rehab Assessment Assessment: Pt remains highly motivated, ideal candidate for intensive rehab level therapies to promote return to indep function. REQUIRES OT FOLLOW UP: Yes Safety Devices Type of devices: Left in bed;Call light within reach (sister present) Subjective Subjective: Pt in bed, agrees to therapy. Feels having greater difficulty breathing today, SpO2 mid90s throughout session, 4L O2 via nc. Vital Signs Patient Currently in Pain: No Objective ADL LE Dressing: Maximum assistance (don socks at EOB) Balance Sitting Balance: (close supv at EOB, height of bed does not allow pt to have contact with feet on floor) Bed mobility Rolling to Left: Moderate assistance Supine to Sit: Maximum assistance;2 Person assistance (2 trials) Sit to Supine: Maximum assistance;2 Person assistance Scooting: Maximal assistance;2 Person assistance Transfers Sit to stand: (did not attempt sit --> stand today as bed height is too high to attempt safely for this pt) Type of ROM/Therapeutic Exercise Comment: IS x 10 reps, to 1250 ml if uses proper technique. Does not elicit cough. Encouraged continued use of same; pt with good understanding. Plan Plan Comment: Cont OT per POC AM-PAC Score AM-PAC Inpatient Daily Activity Raw Score: 12 (07/01/21 1024) AM-PAC Inpatient ADL T-Scale Score : 30.6 (07/01/21 1024) ADL Inpatient CMS 0-100% Score: 66.57 (07/01/21 1024) ADL Inpatient CMS G-Code Modifier : CL (07/01/21 1024) Goals Short term goal 1: Dynamic sitting balance at EOB during bilateral UE task x 5-8 mins with supervision. --PROGRESSING Short term goal 2: BSC transfer with mod assist. --not addressed Short term goal 3: Static standing balance during unilateral UE task x 2-3 mins with min assist. --not addressed Short term goal 4: Don pants and socks using AE with min assist. --PROGRESSING Therapy Time Individual Concurrent Group Co-treatment Time In 923 Time Out 0959 Minutes 35 Timed Code Treatment Minutes: 35 Minutes (Funct--2) KIMBERLY Tariq * Geovanny Daugherty MD - 07/01/2021 9:48 AM EDT Images from the original note were not included. Pulmonology Progress Note Jesusita Ladi England : 1970(51 y.o.) Date: July 01, 2021 Chief Complaint: SOB Subjective: - No acute events overnight. - Currently, patient is having increased SOB this morning compared to yesterday. She was weaned from 5L nasal canula to 2L this AM. She does not require 02 at home. She has had cough and SOB since presenting to the hospital on 06/03 with COVID-19. Was intubated from 06/04-06/18. Review of Systems Constitutional: Negative for chills, diaphoresis and fever. HENT: Negative for congestion, postnasal drip, rhinorrhea and sinus pain. Respiratory: Positive for cough and shortness of breath. Cardiovascular: Negative for chest pain and leg swelling. Gastrointestinal: Negative for abdominal distention, abdominal pain, constipation, diarrhea, nauseaand vomiting. Endocrine: Negative for cold intolerance and heat intolerance. Genitourinary: Negative for difficulty urinating and dysuria. Musculoskeletal: Negative for arthralgias, joint swelling and myalgias. Skin: Negative for rash. Neurological: Negative for dizziness, weakness, numbness and headaches. Psychiatric/Behavioral: Negative for agitation and confusion. The patient is not nervous/anxious. Scheduled Meds: Vitamin D 2,000 Units Oral Daily ferrous sulfate 325 mg Oral Every Other Day ipratropium-albuterol 1 ampule Inhalation BID fluticasone 2 spray Each Nostril BID sodium chloride flush 10 mL Intracatheter Q12H heparin flush 250 Units Intracatheter Q12H heparin flush 250 Units Intravenous 2 times per day gabapentin 300 mg Oral Daily guaiFENesin 600 mg Oral BID sodium chloride (Inhalant) 4 mL Nebulization TID cholestyramine 0.5 packet Oral Daily mometasone-formoterol 2 puff Inhalation BID pantoprazole 40 mg Oral QAM AC sodium hypochlorite Irrigation Daily mineral oil-hydrophilic petrolatum Topical BID collagenase Topical Daily stomahesive in petrolatum Topical BID melatonin 3 mg Oral Nightly sennosides-docusate sodium 2 tablet Oral BID polyethylene glycol 17 g Oral BID miconazole Topical BID enoxaparin 40 mg Subcutaneous BID Continuous Infusions: dextrose 100 mL/hr (06/24/212109) sodium chloride 25 mL (06/16/21 0928) Objective: BP 127/82 Pulse 85 Temp 96.2 F (35.7 C) (Temporal) Resp 18 Ht 5' 5 (1.651 m) Wt (!) 419 lb 8 oz (190.3 kg) SpO2 96% BMI 69.81 kg/m Physical Exam Vitals and nursing note reviewed. Constitutional: General: She is not in acute distress. Appearance: Normal appearance. She is not diaphoretic. HENT: Head: Normocephalic and atraumatic. Right Ear: External ear normal. Left Ear: External ear normal. Nose: Nose normal. Mouth/Throat: Mouth: Mucous membranes are moist. Pharynx: Oropharynx is clear. Eyes: General: No scleral icterus. Conjunctiva/sclera: Conjunctivae normal. Pupils: Pupils are equal, round, and reactive to light. Cardiovascular: Rate and Rhythm: Normal rate and regular rhythm. Heart sounds: Normal heart sounds. No murmur heard. No friction rub. No gallop. Pulmonary: Effort: Pulmonary effort is normal. No respiratory distress. Breath sounds: Normal breath sounds. No wheezing or rales. Chest: Chest wall: No tenderness. Abdominal: General: Bowel sounds are normal. There is no distension. Palpations: Abdomen is soft. There is no mass. Tenderness: There is no abdominal tenderness. There is no guarding. Musculoskeletal: General: No tenderness or deformity. Normal range of motion. Cervical back: Normal range of motion and neck supple. Right lower leg: No edema. Left lower leg: No edema. Lymphadenopathy: Cervical: No cervical adenopathy. Skin: General: Skin is warm and dry. Capillary Refill: Capillary refill takes less than 2 seconds. Findings: No erythema or rash. Neurological: Mental Status: She is alert and oriented to person, place, and time. Sensory: No sensory deficit. Coordination: Coordination normal. Psychiatric: Mood and Affect: Mood normal. Behavior: Behavior normal. [facility] within last 24 hours Lab Results Component Value Date/Time WBC 5.5 07/01/2021 03:23 AM Hemoglobin 8.8 (L) 07/01/2021 03:23 AM Hematocrit 27.4 (L) 07/01/2021 03:23 AM Platelets 216 07/01/2021 03:23 AM MCV 74.4 (L) 07/01/2021 03:23 AM Lab Results Component Value Date/Time Sodium 135 07/01/2021 03:23 AM Potassium 5.0 07/01/2021 03:23 AM Chloride 106 07/01/2021 03:23 AM CO2 24 07/01/2021 03:23 AM BUN 61 (H) 07/01/2021 03:23 AM CREATININE 2.36 (H) 07/01/2021 03:23 AM Glucose 109 (H) 07/01/2021 03:23 AM Calcium 8.4 07/01/2021 03:23 AM Magnesium 1.8 07/01/2021 03:23 AM Phosphorus 6.4 (H) 07/01/2021 03:23 AM Assessment and Plan: 1 acute hypoxic respiratory failure, improving 2 Covid pneumonia 3 MRSA, MSSA pneumonia 4 volume overload 5 MIRIAM (improving) 6 never smoker 7 MIGUEL compliant with CPAP 8 morbid obesity Plan: 1 Wean oxygen 2 Dulera and aerosols; PRN, may not be needed detention 3 Volume management per nephrology 4 Incentive spirometry to restrenghten lungs and open airway 5 Mucinex, acapella, nebulized hypertonic saline, flonase for symptomatic treatment 6 Okay to discharge from pulmonary perspective; focus on rehabilitation. Associated attestation - Fish Kahn MD - 07/01/2021 3:57 PM EDT I have personally seen the patient and examined along with the resident team. I personally obtainedthe roach and relevent portions of the history and performed physical exam. I reviewed the chart including MAR , labs and radiology and discussed the patient's plan of action with the resident. This note reflects my plan of care as I have edited the note to reflect my findings and my assessment and plan. 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 She will get a repeat CT chest in 8 to 12 weeks * Josesito Joseph Jr., MD - 07/01/2021 7:24 AM EDT Images from the original note were not included. Med Team Progress Note Jesusita England : 1970(51 y.o.) Date: July 01, 2021 Med Team: Jennifer Attending: Dr. Joseph Chief Complaint: SOB Subjective: - Overnight, the patient was put on AutoPAP and her oxygen desaturated to 86. - Currently, the patient is resting comfortably in no acute distress. She continues to have a productive cough but notes no worsening shortness of breath. Patient seen and examined on teaching rounds. I agree with the above. Review of Systems Constitutional: Negative for appetite change, chills, fatigue and fever. HENT: Negative for ear pain, hearing loss, rhinorrhea, sore throat and trouble swallowing. Eyes: Negative for pain, redness and visual disturbance. Respiratory: Negative for cough, chest tightness and shortness of breath. Cardiovascular: Positive for leg swelling. Gastrointestinal: Negative for abdominal pain, constipation, diarrhea, nausea and vomiting. Endocrine: Negative for polyphagia and polyuria. Genitourinary: Negative for difficulty urinating, dysuria and urgency. Musculoskeletal: Negative for back pain, joint swelling and neck pain. Skin: Negative for color change and rash. Neurological: Negative for dizziness, facial asymmetry, weakness, light- headedness and numbness. Psychiatric/Behavioral: Negative for agitation and confusion. Scheduled Meds: ferrous sulfate 325 mg Oral Every Other Day ipratropium-albuterol 1 ampule Inhalation BID fluticasone 2 spray Each Nostril BID sodium chloride flush 10 mL Intracatheter Q12H heparin flush 250 Units Intracatheter Q12H heparin flush 250 Units Intravenous 2 times per day gabapentin 300 mg Oral Daily guaiFENesin 600 mg Oral BID sodium chloride (Inhalant) 4 mL Nebulization TID cholestyramine 0.5 packet Oral Daily mometasone-formoterol 2 puff Inhalation BID pantoprazole 40 mg Oral QAM AC sodium hypochlorite Irrigation Daily mineral oil-hydrophilic petrolatum Topical BID collagenase Topical Daily stomahesive in petrolatum Topical BID melatonin 3 mg Oral Nightly sennosides-docusate sodium 2 tablet Oral BID polyethylene glycol 17 g Oral BID miconazole Topical BID Vitamin D 2,000 Units Per G Tube Daily enoxaparin 40 mg Subcutaneous BID Continuous Infusions: dextrose 100 mL/hr (06/24/212109) sodium chloride 25 mL (06/16/21 5033) PRN meds used in last 24hrs: NA Objective: BP 127/82 Pulse 85 Temp 96.2 F (35.7 C) (Temporal) Resp 18 Ht 5' 5 (1.651 m) Wt (!) 419 lb 8 oz (190.3 kg) SpO2 96% BMI 69.81 kg/m Physical Exam Constitutional: General: She is not in acute distress. Appearance: She is obese. HENT: Head: Normocephalic and atraumatic. Right Ear: External ear normal. Left Ear: External ear normal. Nose: Nose normal. Mouth/Throat: Mouth: Mucous membranes are moist. Pharynx: Oropharynx is clear. Eyes: General: Right eye: No discharge. Left eye: No discharge. Extraocular Movements: Extraocular movements intact. Pupils: Pupils are equal, round, and reactive to light. Cardiovascular: Rate and Rhythm: Normal rate and regular rhythm. Pulses: Normal pulses. Heart sounds: Normal heart sounds. No murmur heard. Pulmonary: Effort: Pulmonary effort is normal. Breath sounds: Normal breath sounds. No wheezing or rales. Abdominal: General: Abdomen is flat. There is no distension. Palpations: Abdomen is soft. Tenderness: There is no abdominal tenderness. Musculoskeletal: General: Normal range of motion. Cervical back: Normal range of motion and neck supple. No rigidity or tenderness. Right lower leg: Edema present. Left lower leg: Edema present. Skin: General: Skin is warm and dry. Capillary Refill: Capillary refill takes less than 2 seconds. Findings: No bruising or rash. Neurological: General: No focal deficit present. Mental Status: She is alert and oriented to person, place, and time. Sensory: No sensory deficit. Motor: Weakness (Chronic r sided weakness improving) present. Psychiatric: Mood and Affect: Mood normal. [facility] within last 24 hours Lab Results Component Value Date/Time WBC 5.5 07/01/2021 03:23 AM Hemoglobin 8.8 (L) 07/01/2021 03:23 AM Hematocrit 27.4 (L) 07/01/2021 03:23 AM Platelets 216 07/01/2021 03:23 AM MCV 74.4 (L) 07/01/2021 03:23 AM Lab Results Component Value Date/Time Sodium 135 07/01/2021 03:23 AM Potassium 5.0 07/01/2021 03:23 AM Chloride 106 07/01/2021 03:23 AM CO2 24 07/01/2021 03:23 AM BUN 61 (H) 07/01/2021 03:23 AM CREATININE 2.36 (H) 07/01/2021 03:23 AM Glucose 109 (H) 07/01/2021 03:23 AM Calcium 8.4 07/01/2021 03:23 AM Magnesium 1.8 07/01/2021 03:23 AM Phosphorus 6.4 (H) 07/01/2021 03:23 AM Assessment and Plan: Acute Respiratory Failure 2/2 COVID PNA + MSSA PNA + Moderate Pulm edema/Effusion MIGUEL Asthma Morbid Obesity - with probable obesity hypoventilation syndrome - S/p remdesevir/decadron. S/p intubation from 06/04-06/18. - Cont duonebs BID + dulera BID - Pt O2 sat 96% on 5 L - Wean oxygen as able - Incentive spirometry to restrenghten lungs and open airway - mucinex, acapella, nebulized hypertonic saline to break up mucous - Cont Flonase for nasal symptoms - Switched from CPAP to AutoPAP but still desaturated overnight - Will do overnight pulse ox with her CPAP on her previous at-home setting Agree. Ask pulmonology to make sure we have CPAP optimized prior to discharge to prevent the overnight hypoxic events as best possible. MIRIAM 2/2 Lasix, Vancomycin toxicity/Intravascular volume depletion - Improving - sCr 2.36, down from 2.61 yesterday - Urine Na <5 suggests volume depletion is contributing to MIRIAM, but trends more consistent with vanco ATN - 1.2 L fluid restriction per Nephrology Hyponatremia improved. Will see if okay with nephrology toloosen restriction some. - Will continue to follow Hypovolemic Hyponatremia - Improving - Na 135 today up from 131 -Continue monitoring - 1.2 L fluid restriction per Nephrology See above. Hyperphosphatemia 2/2 MIRIAM -Phos 6.4 this AM, down from 6.5 -Repeat Phos tomorrow Debility 2/2 Intubation and ICU admission - PT/OT - patient appears to be highly motivated to increase physical activity - PT recommends IP rehab - OT recommends IP rehab Anemia with low MCV 2/2 iron deficiency - stable - Iron 27; Sat 10; TIBC 273 indicates iron deficiency anemia - Ferrous sulfate 325 mg PO every other day VAP 2/2 MRSA + now MSSA - resolved - completed abx course Evin pneumonia - resolved -completed antifungal course Staph Hominis Bacteremia likely 2/2 CVC related - resolved - s/p removed line. - Abx completed, will continue to monitor Right Guttock Stage 3 pressure injury Lower back unstageable pressure injury Abdominal folds fungal dermatitis Bilateral lower extremity/feet dermatitis -Wound care following Concern for Malnutrition - Low albumin and protein w/ multiple wounds and prolonged hospital stay - Continues to have good diet - Dietary continuing to follow - last note 06/25/21 - Will continue to assess Peripheral Neuropathy - gabapentin 300 mg TID Hyperkalemia -Will continue to monitor Dispo: Await nephro recs then DC to IP rehab. Agree. Hopefully in the next 24-48 hours. - Goals of Care: FULL CODE - DVT Prophylaxis: lovenox 40 q24h - creatinine clearance > 30 - GI Prophylaxis: Protonix daily - Diet: Renal and Fluid Restriction - 1200mL I have discussed the care of Jesusita England with the medical student and/or resident. I have personally taken a history, examined the patient, and performed the associated medical decision making activities. I have reviewed & verified the attested documentation. Unless otherwise noted above, this documentation reflects the history, physical exam, and medical decision making that I performed myself. Please see blue and bolded text for my personal highlights or additions to the note. Patient seen and examined by myself on 07/01/21 I spent over 51% of total time >25 minutes counseling/coordinating care and provided discussion regarding plans for pulm to evaluate CPAP for optimization and working towards rehab in next 1-2 days. Talked to patient's sister at bedside. * April Araujo MD - 06/30/2021 12:57 PM EDT Images from the original note were not included. NEPHROLOGY PROGRESS NOTE PATIENT NAME: Jesusita England ROOM: [address] [place] [address] SERVICE DATE: 06/30/2021 SERVICE TIME: 12:57 PM LENGTH OF STAY: 27 day(s) REFERRING PHYSICIAN: Ruth Soni DO PRIMARY CARE PHYSICIAN: No primary care provider on file. OUTPATIENT COMMISSIONED [employer]ICE OFFICER: None ACTIVE & BACKGROUND PROBLEM LIST: 1. Respiratory Failure, Extubated - SARS-CoV-2 + MRSA + MSSA + Evin Pneumonia 2. Hyponatremia, Improved 3. S. hominis Bacteremia, Resolved 4. Acute Renal Failure - Vancomycin Toxicity, Furosemide Use 5. Morbid Obesity 6. Asthma, MIGUEL on NiPPV 7. Peripheral Neuropathy SYMPTOMS AND INTERVAL HISTORY: Encouraging trend in improvement. No new changes in recommendations today, Nephrology - quiñonez. INPATIENT MEDICATIONS: ferrous sulfate 325 mg Oral Every Other Day ipratropium-albuterol 1 ampule Inhalation BID fluticasone 2 spray Each Nostril BID sodium chloride flush 10 mL Intracatheter Q12H heparin flush 250 Units Intracatheter Q12H heparin flush 250 Units Intravenous 2 times per day gabapentin 300 mg Oral Daily guaiFENesin 600 mg Oral BID sodium chloride (Inhalant) 4 mL Nebulization TID cholestyramine 0.5 packet Oral Daily mometasone-formoterol 2 puff Inhalation BID pantoprazole 40 mg Oral QAM AC sodium hypochlorite Irrigation Daily mineral oil-hydrophilic petrolatum Topical BID collagenase Topical Daily stomahesive in petrolatum Topical BID melatonin 3 mg Oral Nightly sennosides-docusate sodium 2 tablet Oral BID polyethylene glycol 17 g Oral BID miconazole Topical BID Vitamin D 2,000 Units Per G Tube Daily enoxaparin 40 mg Subcutaneous BID INPATIENT INFUSIONS: dextrose 100 mL/hr (06/24/212109) sodium chloride 25 mL (06/16/21 0928) PHYSICAL EXAM: Vitals: 06/30/21 0141 06/30/21 0546 06/30/21 0916 06/30/21 0925 BP: 123/75 Pulse: 87 Resp: 20 18 Temp: 96.7 F (35.9 C) TempSrc: Temporal SpO2: 91% 95% 99% Weight: Height: Today's Weight: Weight: (!) 419 lb 8 oz (190.3 kg) Weight on Admission: Weight: (!) 418 lb (189.6 kg) Wt Readings from Last 3 Encounters: 06/25/21 (!) 419 lb 8 oz (190.3 kg) 06/01/20 (!) 418 lb (189.6 kg) Estimated body mass index is 69.81 kg/m as calculated from the following: Height as of this encounter: 5' 5 (1.651 m). Weight as of this encounter: 419 lb 8 oz (190.3 kg). FIO2 needs: No data found. APPEARANCE: (-) distress; chronically ill and morbidly obese EYES: (-) periorbital swelling (n) lids (n) conjunctivae (-) icterus EARS, NOSE, THROAT: (n) lips, gums, palate (-) mucosal cyanosis (n) external exam of nose, sinuses,ears NECK: (short) neck (midline) trachea (n) thyroid (-) lymphadenopathy (+) bucculus RESPIRATORY: (n) external symmetry (n) bony structures (n) auscultation anteriorly CARDIOVASCULAR: (n) S1 (n) S2 (-) S3 (-) rubs (-) murmurs (n) rhythm (n) pulses (-) bruits GASTROINTESTINAL: (-) tenderness (-) masses (-) abdominal wall edema (+) panniculus GENITOURINARY: not examined MUSCULOSKELETAL: (n) joints (poor) muscle tone (minimal at most) edema DERMATOLOGIC: (n) superficial inspection (n) turgor (n) texture NEUROLOGIC: (-) gross focal deficits PSYCHIATRIC: (appropriate) affect LABS AND DIAGNOSTICS: Recent Labs 06/28/21 03406/29/2162906/30/21 0202 WBC 5.7 4.6 6.8 HGB 9.2* 11.1* 9.3* HCT 28.6* 35.1 28.8* MCV 74.2* 75.5* 74.1* PLT 184 163 206 Lab Results Component Value Date IRON 27 (L) 06/23/2021 TIBC 273 06/23/2021 FERRITIN 358 (H) 06/21/2021 Recent Labs 06/28/21 0340 06/29/21 0606/30/21 0202 NA 130* 131* 132* 134* K 4.5 5.0 5.0 5.2* CL 98 100 100 104 CO2 23 25 25 24 BUN 56* 58* 57* 58* CREATININE 3.14* 2.86* 2.86* 2.61* GLUCOSE 118* 114* 115* 119* CALCIUM 8.5 8.5 8.5 8.5 MG 2.0 2.0 1.9 PHOS 5.7* 6.3* 6.5* ANIONGAP 9 7 7 6 Lab Results Component Value Date VITD25 19 (L) 06/03/2021 Lab Results Component Value Date CKTOTAL 160 06/03/2021 ALT 30 06/30/2021 AST 29 06/30/2021 Lab Results Component Value Date HEPBCAB Negative 06/05/2021 HEPCAB NOT DETECTED 06/05/2021 RENAL US Right and left kidneys measure 11.7 x 6.3 x 6.6 cm and 15.9 x 5.5 x 6.4 cm respectively. Relative renal parenchymal echogenicity is normal. There is no hydronephrosis. Patient voided prior to the exam and the bladder is not visualized. IMPRESSION: No hydronephrosis. Large size of the left kidney with no focal mass noted. This may be a normal variant. ECHOCARDIOGRAM 1. Left ventricle: The cavity size is normal. Wall thickness is normal. Systolic function is normalby visual assessment. The estimated ejection fraction is 55%. 2. Technically difficult study. 3. No significant valve disease. 4. Unable to estimate RVSP. ASSESSMENT & RECOMMENDATIONS: 1. Acute Renal Failure > Periodic monitoring and assessments for relevant interventions. > Renal Function is dependent on the status of the immediate insult, as well as that of the concurrent comorbidities. > Renal Dysfunction is likely from a combination of ATN from Vancomycin Toxicity and Intravascular Volume Depletion. > Urine Na+ of < 5 during event supportive of the latter - however overall trend appears moreconsistent with ATN. > SCr continues to move in the direction of recovery. 2. Electrolytes > Periodic monitoring and assessments for relevant interventions. > Hyponatremia improving - may just be secondary to Renal Failure. 3. Acid - Base Balance > Periodic monitoring and assessments for relevant interventions. > (-) significant derangements. 4. Hypertension & Volume > Periodic monitoring and assessments for relevant interventions. > Antihypertensives: Normotensive on examination. Volume Status difficult to assess due to habitus. No particular objection to limiting 1.2L of fluids daily. > Diuretics: No. 5. Anemia > Periodic monitoring and assessments for relevant interventions. > Not secondary to CKD. > Transfuse pRBCs as deemed necessary. 6. Hyperparathyroidism of Renal Etiology > Periodic monitoring and assessments for relevant interventions. > N/A. 7. Cardiovascular Risk Factors > No objection to agents such as Aspirin, Beta - Blockers, and Statins as deemed appropriate; risk for Cardiovascular Events significantly higher in patients with Chronic Renal Failure, more so inpatients requiring Renal Replacement Therapy. 8. Other > Maintain Normotension. > Avoid NSAIDs, Aminoglycosides, IV Contrast, other Nephrotoxic Agents, Fleet Enemas, and Mg++ containing laxatives. > Exercise caution with PROMISE-Is and ARBs, with emphasis on Hyperkalemia as well as excessive reductions in eGFR. > Dose medications appropriately based on Measured or Estimated Creatinine Clearance (eCrCl) rather than eGFR. > Do not cannulate veins on extremities with planned or existing Hemodialysis Arteriovenous Grafts or Fistulas. * Adina Kramer DO - 06/30/2021 8:48 AM EDT Images from the original note were not included. Med Team Progress Note Jesusita England : 1970(51 y.o.) Date: June 30, 2021 Med Team: Jennifer Attending: Dr. Toure Chief Complaint: SOB Subjective: - No acute events overnight. - Currently, the patient is satisfied with her condition and does not appear to be in any acute distress. Her primary concern is a build up of mucus in the back of her throat that she claimed was choking her and impeding her breathing. Patient seen and examined at bedside and was resting comfortably. On 5L supplemental oxygen via nasal cannula this AM due to desaturation to 91% overnight. Continues to note a productive cough but notes no worsening shortness of breath. Reports no pain. Review of Systems Constitutional: Negative for appetite change, chills, fatigue and fever. HENT: Negative for ear pain, hearing loss, rhinorrhea, sore throat and trouble swallowing. Eyes: Negative for pain, redness and visual disturbance. Respiratory: Negative for cough, chest tightness and shortness of breath. Cardiovascular: Positive for leg swelling. Gastrointestinal: Negative for abdominal pain, constipation, diarrhea, nausea and vomiting. Endocrine: Negative for polyphagia and polyuria. Genitourinary: Negative for difficulty urinating, dysuria and urgency. Musculoskeletal: Negative for back pain, joint swelling and neck pain. Skin: Negative for color change and rash. Neurological: Negative for dizziness, facial asymmetry, weakness, light- headedness and numbness. Psychiatric/Behavioral: Negative for agitation and confusion. Scheduled Meds: ferrous sulfate 325 mg Oral Every Other Day ipratropium-albuterol 1 ampule Inhalation BID fluticasone 2 spray Each Nostril BID sodium chloride flush 10 mL Intracatheter Q12H heparin flush 250 Units Intracatheter Q12H heparin flush 250 Units Intravenous 2 times per day gabapentin 300 mg Oral Daily guaiFENesin 600 mg Oral BID sodium chloride (Inhalant) 4 mL Nebulization TID cholestyramine 0.5 packet Oral Daily mometasone-formoterol 2 puff Inhalation BID pantoprazole 40 mg Oral QAM AC sodium hypochlorite Irrigation Daily mineral oil-hydrophilic petrolatum Topical BID collagenase Topical Daily stomahesive in petrolatum Topical BID melatonin 3 mg Oral Nightly sennosides-docusate sodium 2 tablet Oral BID polyethylene glycol 17 g Oral BID miconazole Topical BID Vitamin D 2,000 Units Per G Tube Daily enoxaparin 40 mg Subcutaneous BID Continuous Infusions: dextrose 100 mL/hr (06/24/212109) sodium chloride 25 mL (06/16/21927) PRN meds used in last 24hrs: NA Objective: BP 123/75 Pulse 87 Temp 96.7 F (35.9 C) (Temporal) Resp 20 Ht 5' 5 (1.651 m) Wt (!) 419 lb 8 oz (190.3 kg) SpO2 91% BMI 69.81 kg/m Physical Exam Constitutional: General: She is not in acute distress. Appearance: She is obese. HENT: Head: Normocephalic and atraumatic. Right Ear: External ear normal. Left Ear: External ear normal. Nose: Nose normal. Mouth/Throat: Mouth: Mucous membranes are moist. Pharynx: Oropharynx is clear. Eyes: General: Right eye: No discharge. Left eye: No discharge. Extraocular Movements: Extraocular movements intact. Pupils: Pupils are equal, round, and reactive to light. Cardiovascular: Rate and Rhythm: Normal rate and regular rhythm. Pulses: Normal pulses. Heart sounds: Normal heart sounds. No murmur heard. Pulmonary: Effort: Pulmonary effort is normal. Breath sounds: Normal breath sounds. No wheezing or rales. Abdominal: General: Abdomen is flat. There is no distension. Palpations: Abdomen is soft. Tenderness: There is no abdominal tenderness. Musculoskeletal: General: Normal range of motion. Cervical back: Normal range of motion and neck supple. No rigidity or tenderness. Right lower leg: Edema present. Left lower leg: Edema present. Skin: General: Skin is warm and dry. Capillary Refill: Capillary refill takes less than 2 seconds. Findings: No bruising or rash. Neurological: General: No focal deficit present. Mental Status: She is alert and oriented to person, place, and time. Sensory: No sensory deficit. Motor: Weakness (Chronic r sided weakness improving) present. Psychiatric: Mood and Affect: Mood normal. [facility] within last 24 hours Lab Results Component Value Date/Time WBC 6.8 06/30/2021 02:02 AM Hemoglobin 9.3 (L) 06/30/2021 02:02 AM Hematocrit 28.8 (L) 06/30/2021 02:02 AM Platelets 206 06/30/2021 02:02 AM MCV 74.1 (L) 06/30/2021 02:02 AM Lab Results Component Value Date/Time Sodium 134 (L) 06/30/2021 02:02 AM Potassium 5.2 (H) 06/30/2021 02:02 AM Chloride 104 06/30/2021 02:02 AM CO2 24 06/30/2021 02:02 AM BUN 58 (H) 06/30/2021 02:02 AM CREATININE 2.61 (H) 06/30/2021 02:02 AM Glucose 119 (H) 06/30/2021 02:02 AM Calcium 8.5 06/30/2021 02:02 AM Magnesium 1.9 06/30/2021 02:02 AM Phosphorus 6.5 (H) 06/30/2021 02:02 AM Lab Results Component Value Date/Time AST 29 06/30/2021 02:02 AM ALT 30 06/30/2021 02:02 AM Total Protein 6.1 (L) 06/30/2021 02:02 AM Albumin,Serum 2.8 (L) 06/30/2021 02:02 AM Total Bilirubin 0.4 06/30/2021 02:02 AM Alkaline Phosphatase 83 06/30/2021 02:02 AM Assessment and Plan: Acute Respiratory Failure 2/2 COVID PNA + MSSA PNA + Moderate Pulm edema/Effusion MIGUEL Asthma Morbid Obesity - with probable obesity hypoventilation syndrome - S/p remdesevir/decadron. S/p intubation from 06/04-06/18. - Cont duonebs BID + dulera BID - Pt O2 sat 99% on 5 L - Wean oxygen as able - Incentive spirometry to restrenghten lungs and open airway - mucinex, acapella, nebulized hypertonic saline to break up mucous - Cont Flonase for nasal symptoms - Given desat overnight, likely component of deconditioning and obesity hypoventilation syndrome, will switch from CPAP to BiPAP -Agree. Mild oxygen desaturation documented overnight (91%). Switch to overnight BiPAP to better optimize respiratory status. MIRIAM 2/2 Lasix, Vancomycin toxicity/Intravascular volume depletion - Improving - sCr 2.61, down from 2.86 yesterday - Urine Na <5 suggests volume depletion is contributing to MIRIAM, but trends more consistent with vanco ATN - 1.2 L fluid restriction per Nephrology - Will continue to follow -Agree. Cr continues to improve. Hypovolemic Hyponatremia - Improving - Na 135 today up from 131 -Continue monitoring - 1.2 L fluid restriction per Nephrology -Agree. Hyperphosphatemia 2/2 MIRIAM -Phos 6.5 this AM, up from 6.3 -Repeat Phos tomorrow -Agree. Debility 2/2 Intubation and ICU admission - PT/OT - patient appears to be highly motivated to increase physical activity - PT recommends IP rehab - OT recommends IP rehab -Agree Anemia with low MCV 2/2 iron deficiency - stable - Iron 27; Sat 10; TIBC 273 indicates iron deficiency anemia - Ferrous sulfate 325 mg PO every other day -Agree VAP 2/2 MRSA + now MSSA - resolved - completed abx course -Agree Staph Hominis Bacteremia likely 2/2 CVC related - resolved - s/p removed line. - Abx completed, will continue to monitor -Agree Constipation - resolved Right Guttock Stage 3 pressure injury Lower back unstageable pressure injury Abdominal folds fungal dermatitis Bilateral lower extremity/feet dermatitis -Wound care following -Agree Concern for Malnutrition - Low albumin and protein w/ multiple wounds and prolonged hospital stay - Continues to have good diet - Dietary continuing to follow - last note 06/25/21 - Will continue to assess -Agree Peripheral Neuropathy - gabapentin 300 mg TID -Agree Hyperkalemia -Will continue to monitor -Agree Dispo: Await nephro recs then DC to IP rehab. Anticipate she will be medically appropriate for discharge 07/02, await precert for DC to inpatient rehab. - Goals of Care: FULL CODE - DVT Prophylaxis: lovenox 40 q24h - creatinine clearance > 30 - GI Prophylaxis: Protonix daily - Diet: Renal and Fluid Restriction - 1200mL I independently saw and evaluated the patient. The above note has been edited to reflect my findings. Ms. England is a 51 YO female who presented with COVID-19 pneumonia on 06/02/21 requiring intubation and over her hospital stay developed MRSA and MSSA pneumonia as well as staph hominis bacteremia which have all been treated. Is now waiting placement to IP rehabilitation. Today is doing well has no complaints. Overnight desated while on CPAP. Believe that this is due to deconditioning and obesity hypoventilation syndrome. Will plan for BiPAP tonight. Will review CPAP setting and make BiPAP setting to reflect. Pager: [phone] Associated attestation - Kleber Toure DO - 06/30/2021 12:41 PM EDT I have discussed the care of Jesusita England with the medical student and/or resident. I have personally taken a history, examined the patient, and performed the associated medical decision making activities. I have reviewed & verified the attested documentation. Unless otherwise noted below, this documentation reflects the history, physical exam, and medical decision making that I performed myself. Please see note for my personal highlights or additions in Green. Patient seen and examined by myself at 0850 on 06/30/21 [place] Changes to Care Plan: -Switch CPAP to BIPAP for better overnight oxygenation/ventilation -Cr continues to improve -Anticipate ready for discharge 07/02 and will start pre-cert process for inpatient rehab Pager: [phone] * April Araujo MD - 06/29/2021 3:24 PM EDT Images from the original note were not included. NEPHROLOGY PROGRESS NOTE PATIENT NAME: Jesusita England ROOM: [facility] [place] SERVICE DATE: 06/29/2021 SERVICE TIME: 3:24 PM LENGTH OF STAY: 26 day(s) REFERRING PHYSICIAN: Ruth Soni DO PRIMARY CARE PHYSICIAN: No primary care provider on file. OUTPATIENT COMMISSIONED POLICE OFFICER: None ACTIVE & BACKGROUND PROBLEM LIST: 1. Respiratory Failure, Extubated - SARS-CoV-2 + MRSA + MSSA + Evin Pneumonia 2. Hyponatremia, Improved 3. S. hominis Bacteremia, Resolved 4. Acute Renal Failure - Vancomycin Toxicity, Furosemide Use 5. Morbid Obesity 6. Asthma, MIGUEL on NiPPV 7. Peripheral Neuropathy SYMPTOMS AND INTERVAL HISTORY: Appraised of improvement in SCr. Likely to just be a matter of time. INPATIENT MEDICATIONS: ferrous sulfate 325 mg Oral Every Other Day ipratropium-albuterol 1 ampule Inhalation BID fluticasone 2 spray Each Nostril BID sodium chloride flush 10 mL Intracatheter Q12H heparin flush 250 Units Intracatheter Q12H heparin flush 250 Units Intravenous 2 times per day gabapentin 300 mg Oral Daily guaiFENesin 600 mg Oral BID sodium chloride (Inhalant) 4 mL Nebulization TID cholestyramine 0.5 packet Oral Daily mometasone-formoterol 2 puff Inhalation BID pantoprazole 40 mg Oral QAM AC sodium hypochlorite Irrigation Daily mineral oil-hydrophilic petrolatum Topical BID collagenase Topical Daily stomahesive in petrolatum Topical BID melatonin 3 mg Oral Nightly sennosides-docusate sodium 2 tablet Oral BID polyethylene glycol 17 g Oral BID miconazole Topical BID Vitamin D 2,000 Units Per G Tube Daily enoxaparin 40 mg Subcutaneous BID INPATIENT INFUSIONS: dextrose 100 mL/hr (06/24/210) sodium chloride 25 mL (06/16/21 0928) PHYSICAL EXAM: Vitals: 06/29/21 0045 06/29/21 0637 06/29/21 0849 06/29/21 0851 BP: 122/71 Pulse: 81 Resp: 16 18 16 16 Temp: 98.4 F (36.9 C) TempSrc: Temporal SpO2: 98% 98% 98% Weight: Height: Today's Weight: Weight: (!) 419 lb 8 oz (190.3 kg) Weight on Admission: Weight: (!) 418 lb (189.6 kg) Wt Readings from Last 3 Encounters: 06/25/21 (!) 419 lb 8 oz (190.3 kg) 06/01/20 (!) 418 lb (189.6 kg) Estimated body mass index is 69.81 kg/m as calculated from the following: Height as of this encounter: 5' 5 (1.651 m). Weight as of this encounter: 419 lb 8 oz (190.3 kg). FIO2 needs: No data found. APPEARANCE: (-) distress EYES: (-) periorbital swelling (n) lids (n) conjunctivae (-) icterus EARS, NOSE, THROAT: (n) lips, gums, palate (-) mucosal cyanosis (n) external exam of nose, sinuses,ears NECK: (short) neck (midline) trachea (n) thyroid (-) lymphadenopathy (+) bucculus RESPIRATORY: (n) external symmetry (n) bony structures (n) auscultation anteriorly CARDIOVASCULAR: (n) S1 (n) S2 (-) S3 (-) rubs (-) murmurs (n) rhythm (n) pulses (-) bruits GASTROINTESTINAL: (-) tenderness (-) masses (-) abdominal wall edema (+) panniculus GENITOURINARY: not examined MUSCULOSKELETAL: (n) joints (poor) muscle tone (minimal at most) edema DERMATOLOGIC: (n) superficial inspection (n) turgor (n) texture NEUROLOGIC: (-) gross focal deficits PSYCHIATRIC: (appropriate) affect LABS AND DIAGNOSTICS: Recent Labs 06/27/21 0101 06/28/21 0340 06/29/21 0630 WBC 6.1 5.7 4.6 HGB 9.1* 9.2* 11.1* HCT 28.3* 28.6* 35.1 MCV 75.2* 74.2* 75.5* PLT 168 184 163 Lab Results Component Value Date IRON 27 (L) 06/23/2021 TIBC 273 06/23/2021 FERRITIN 358 (H) 06/21/2021 Recent Labs 06/27/21 0101 06/27/21 0101 06/27/21 1310 06/28/21 0340 06/29/21 0630 NA 126* 126* < > 126* 130* 131* 132* K 4.5 4.6 < > 4.4 4.5 5.0 5.0 CL 96* 96* < > 94* 98 100 100 CO2 23 21* < > 25 23 25 25 BUN 49* 50* < > 52* 56* 58* 57* CREATININE 3.20* 3.03* < > 3.08* 3.14* 2.86* 2.86* GLUCOSE 124* 122* < > 131* 118* 114* 115* CALCIUM 8.2* 8.3* < > 8.5 8.5 8.5 8.5 MG 2.0 -- -- 2.0 2.0 PHOS 4.8* -- -- 5.7* 6.3* ANIONGAP 7 9 < > 7 9 7 7 < > = values in this interval not displayed. Lab Results Component Value Date VITD25 19 (L) 06/03/2021 Lab Results Component Value Date CKTOTAL 160 06/03/2021 ALT 35 (H) 06/28/2021 AST 32 06/28/2021 Lab Results Component Value Date HEPBCAB Negative 06/05/2021 HEPCAB NOT DETECTED 06/05/2021 RENAL US Right and left kidneys measure 11.7 x 6.3 x 6.6 cm and 15.9 x 5.5 x 6.4 cm respectively. Relative renal parenchymal echogenicity is normal. There is no hydronephrosis. Patient voided prior to the exam and the bladder is not visualized. IMPRESSION: No hydronephrosis. Large size of the left kidney with no focal mass noted. This may be a normal variant. ECHOCARDIOGRAM 1. Left ventricle: The cavity size is normal. Wall thickness is normal. Systolic function is normalby visual assessment. The estimated ejection fraction is 55%. 2. Technically difficult study. 3. No significant valve disease. 4. Unable to estimate RVSP. ASSESSMENT & RECOMMENDATIONS: 1. Acute Renal Failure > Periodic monitoring and assessments for relevant interventions. > Renal Function is dependent on the status of the immediate insult, as well as that of the concurrent comorbidities. > Renal Dysfunction is likely from a combination of ATN from Vancomycin Toxicity and Intravascular Volume Depletion. > Urine Na+ of < 5 supportive of the latter - however overall trend appears more consistent with ATN. > SCr now moving in the direction of recovery. 2. Electrolytes > Periodic monitoring and assessments for relevant interventions. > Hyponatremia improving - may just be secondary to Renal Failure. 3. Acid - Base Balance > Periodic monitoring and assessments for relevant interventions. > (-) significant derangements. 4. Hypertension & Volume > Periodic monitoring and assessments for relevant interventions. > Antihypertensives: Normotensive on examination. Volume Status difficult to assess due to habitus. > Diuretics: No. 5. Anemia > Periodic monitoring and assessments for relevant interventions. > Not secondary to CKD. > Transfuse pRBCs as deemed necessary. 6. Hyperparathyroidism of Renal Etiology > Periodic monitoring and assessments for relevant interventions. > N/A. 7. Cardiovascular Risk Factors > No objection to agents such as Aspirin, Beta - Blockers, and Statins as deemed appropriate; risk for Cardiovascular Events significantly higher in patients with Chronic Renal Failure, more so inpatients requiring Renal Replacement Therapy. 8. Other > Maintain Normotension. > Avoid NSAIDs, Aminoglycosides, IV Contrast, other Nephrotoxic Agents, Fleet Enemas, and Mg++ containing laxatives. > Exercise caution with PROMISE-Is and ARBs, with emphasis on Hyperkalemia as well as excessive reductions in eGFR. > Dose medications appropriately based on Measured or Estimated Creatinine Clearance (eCrCl) rather than eGFR. > Do not cannulate veins on extremities with planned or existing Hemodialysis Arteriovenous Grafts or Fistulas. * Horacio Linares DO - 06/29/2021 8:41 AM EDT Images from the original note were not included. Med Team Progress Note Jesusita England : 1970(51 y.o.) Date: June 29, 2021 Med Team: Jennifer Attending: Dr. Toure Chief Complaint: SOB Subjective: - No acute events overnight. - Currently, patient resting in bed comfortably. Patient was seen by wound care nurse yesterday. Continue current wound care treatment. Patient is ready to go to inpatient rehab when able to transfer. Patient has no other concerns at this time. Patient seen and examined at bedside. No acute overnight events noted. Notes stress urinary incontinence but has no other complaints this AM. Review of Systems Constitutional: Negative for chills, fatigue and fever. HENT: Negative for ear pain, hearing loss, sinus pain, sore throat and trouble swallowing. Eyes: Negative for pain and redness. Respiratory: Negative for cough, chest tightness and shortness of breath. Cardiovascular: Positive for leg swelling. Negative for chest pain and palpitations. Gastrointestinal: Negative for abdominal pain, constipation, diarrhea, nausea and vomiting. Endocrine: Negative for polyphagia and polyuria. Genitourinary: Negative for difficulty urinating, dysuria and urgency. Musculoskeletal: Negative for back pain, joint swelling and neck pain. Skin: Negative for color change and rash. Neurological: Negative for dizziness, weakness, light-headedness, numbness and headaches. Psychiatric/Behavioral: Negative for agitation and confusion. Scheduled Meds: ipratropium-albuterol 1 ampule Inhalation BID fluticasone 2 spray Each Nostril BID sodium chloride flush 10 mL Intracatheter Q12H heparin flush 250 Units Intracatheter Q12H heparin flush 250 Units Intravenous 2 times per day gabapentin 300 mg Oral Daily guaiFENesin 600 mg Oral BID sodium chloride (Inhalant) 4 mL Nebulization TID cholestyramine 0.5 packet Oral Daily mometasone-formoterol 2 puff Inhalation BID pantoprazole 40 mg Oral QAM AC sodium hypochlorite Irrigation Daily mineral oil-hydrophilic petrolatum Topical BID collagenase Topical Daily stomahesive in petrolatum Topical BID melatonin 3 mg Oral Nightly sennosides-docusate sodium 2 tablet Oral BID polyethylene glycol 17 g Oral BID miconazole Topical BID Vitamin D 2,000 Units Per G Tube Daily enoxaparin 40 mg Subcutaneous BID Continuous Infusions: dextrose 100 mL/hr (06/24/212109) sodium chloride 25 mL (06/16/2128) PRN meds used in last 24hrs: NA Objective: BP 122/71 Pulse 81 Temp 98.4 F (36.9 C) (Temporal) Resp 18 Ht 5' 5 (1.651 m) Wt (!) 419 lb 8 oz (190.3 kg) SpO2 98% BMI 69.81 kg/m Physical Exam Constitutional: General: She is not in acute distress. Appearance: She is obese. HENT: Head: Normocephalic and atraumatic. Right Ear: External ear normal. Left Ear: External ear normal. Nose: Nose normal. Mouth/Throat: Mouth: Mucous membranes are moist. Pharynx: Oropharynx is clear. Eyes: General: Right eye: No discharge. Left eye: No discharge. Extraocular Movements: Extraocular movements intact. Pupils: Pupils are equal, round, and reactive to light. Cardiovascular: Rate and Rhythm: Normal rate and regular rhythm. Pulses: Normal pulses. Heart sounds: Normal heart sounds. No murmur heard. Pulmonary: Effort: Pulmonary effort is normal. Breath sounds: Normal breath sounds. No wheezing or rales. Abdominal: General: Abdomen is flat. There is no distension. Palpations: Abdomen is soft. Tenderness: There is no abdominal tenderness. Musculoskeletal: General: Normal range of motion. Cervical back: Normal range of motion and neck supple. No rigidity or tenderness. Right lower leg: Edema present. Left lower leg: Edema present. Skin: General: Skin is warm and dry. Capillary Refill: Capillary refill takes less than 2 seconds. Findings: No bruising or rash. Neurological: General: No focal deficit present. Mental Status: She is alert and oriented to person, place, and time. Sensory: No sensory deficit. Motor: Weakness (Chronic r sided weakness improving) present. Psychiatric: Mood and Affect: Mood normal. [facility] within last 24 hours Lab Results Component Value Date/Time WBC 4.6 06/29/2021 06:30 AM Hemoglobin 11.1 (L) 06/29/2021 06:30 AM Hematocrit 35.1 06/29/2021 06:30 AM Platelets 163 06/29/2021 06:30 AM MCV 75.5 (L) 06/29/2021 06:30 AM Lab Results Component Value Date/Time Sodium 131 (L) 06/29/2021 06:30 AM Sodium 132 (L) 06/29/2021 06:30 AM Potassium 5.0 06/29/2021 06:30 AM Potassium 5.0 06/29/2021 06:30 AM Chloride 100 06/29/2021 06:30 AM Chloride 100 06/29/2021 06:30 AM CO2 25 06/29/2021 06:30 AM CO2 25 06/29/2021 06:30 AM BUN 58 (H) 06/29/2021 06:30 AM BUN 57 (H) 06/29/2021 06:30 AM CREATININE 2.86 (H) 06/29/2021 06:30 AM CREATININE 2.86 (H) 06/29/2021 06:30 AM Glucose 114 (H) 06/29/2021 06:30 AM Glucose 115 (H) 06/29/2021 06:30 AM Calcium 8.5 06/29/2021 06:30 AM Calcium 8.5 06/29/2021 06:30 AM Magnesium 2.0 06/29/2021 06:30 AM Phosphorus 6.3 (H) 06/29/2021 06:30 AM Assessment and Plan: Acute Respiratory Failure 2/2 COVID PNA + MSSA PNA + Moderate Pulm edema/Effusions - S/p remdesevir/decadron. S/p intubation from 06/04-06/18. - Cont duonebs QID + dulera qd - Pt O2 sat 98% on 3 L - Wean oxygen as able - incentive spirometry to restrenghten lungs and open airway - mucinex, acapella, nebulized hypertonic saline to break up mucous - Flonase for nasal symptoms - Pulm following -Agree. Incentive spirometry and acapella at bedside. MIRIAM 2/2 Lasix, Vancomycin toxicity - sCr 2.86 today, repeat BMP this afternoon - nephrology following, - 1.2 L fluid restriction per Nephrology -Agree. Cr improving, continue to monitor. Hypovolemic Hyponatremia - Na 131 today up from 130 - nephrology following - 1.2 L fluid restriction per Nephrology -Agree Hyperphosphatemia 2/2 MIRIAM -Phos 6.3 this AM, up from 5.7 -Repeat Phos tomorrow -Nephrology Following -Renal Diet -If continue to increase will discuss if phosphate binders are neededwith nephrology\ -Agree, will continue to improve as renal function improves. PIV Issues - Received PICC line yesterday, pt tolerated procedure well and PICC line is functional -Agree Debility 2/2 Intubation and ICU admission - PT/OT - patient appears to be highly motivated to increase physical activity - PT recommends IP rehab - OT recommends IP rehab - Awaiting Precert. For IP rehab -Agree Anemia with low MCV 2/2 iron deficiency - Iron 27; Sat 10; TIBC 273 indicates iron deficiency anemia - Ferrous sulfate 325 mg PO every other day -Agree VAP 2/2 MRSA + now MSSA again. - completed abx course - Continue to monitor respiratory status. If pt gets a fever, purulent sputum, or other sign of infection will repeat cultures as appropriate -Agree, antibiotics completed. Constipation - may be 2/2 questran 4 g. Pt is resistant to hold questran - Senokt PO bid; Glycolax 17 g po bid - dulcolex suppository PRN - 1/2 dose of questran - pt is having multiple Bms -Agree Hypomagnesium (Resolved) -Mg normal for multiple days -Will DC MgOx -Agree Staph Hominis Bacteremia likely 2/2 CVC related - s/p removed line. - Abx completed, will continue to monitor -Agree E.Coli UTI (UCx 06/16: PanSn UTI s/p Cefepime Tx) - replaced urethral galeano with urethral Pure Wick external cath -Agree Dysphagia/ Post extubation dysphagia - [employer] therapy following - Protonix 40 mg po qd if it is GERD related dysphagia, but likely post intubation dysphagia -Agree B/l Stasis Dermatitis, Wounds - aquaphor ointment bid apply to b/l LE and feet - wound care to see pt today -Agree Right Guttock Stage 3 pressure injury Lower back unstageable pressure injury -Wound care to see pt today -Will follow wound care recs for care -Agree Morbid Obesity with probable obesity hypoventilation syndrome - f/u outpatient with pulmonology MIGUEL Asthma - palliative following, appreciate input - dulera PO + duonebs qid -Agree. Peripheral Neuropathy - gabapentin 300 mg TID -Agree Dispo: Await nephro recs then DC to IP rehab when precert. done - Goals of Care: FULL CODE - DVT Prophylaxis: lovenox 40 q24h - creatinine clearance > 30 - GI Prophylaxis: Protonix daily - Diet: Renal and Fluid Restriction - 1200mL Associated attestation - Kleber Toure DO - 06/29/2021 2:00 PM EDT I have discussed the care of Jesusita England with the medical student and/or resident. I have personally taken a history, examined the patient, and performed the associated medical decision making activities. I have reviewed & verified the attested documentation. Unless otherwise noted below, this documentation reflects the history, physical exam, and medical decision making that I performed myself. Please see note for my personal highlights or additions in Green. Patient seen and examined by myself at 11:45 on 06/29/21 [place] Changes to Care Plan: -Cr improving, suspect that renal function will continue to improve. -Suspect that she will be medically stable for discharge within the next 1-2 days if renal functioncontinues to improve. Plan is for discharge to IP rehab. Pager: [phone] * April Araujo MD - 06/28/2021 7:16 PM EDT Images from the original note were not included. NEPHROLOGY PROGRESS NOTE PATIENT NAME: Jesusita England ROOM: [address] [place] [address] SERVICE DATE: 06/28/2021 SERVICE TIME: 7:16 PM LENGTH OF STAY: 25 day(s) REFERRING PHYSICIAN: Ruth Soni DO PRIMARY CARE PHYSICIAN: No primary care provider on file. OUTPATIENT COMMISSIONED POLICE OFFICER: None ACTIVE & BACKGROUND PROBLEM LIST: 1. Respiratory Failure, Extubated - SARS-CoV-2 + MRSA + MSSA + Evin Pneumonia 2. Hyponatremia, Improved 3. S. hominis Bacteremia, Resolved 4. Acute Renal Failure - Vancomycin Toxicity, Furosemide Use 5. Morbid Obesity 6. Asthma, MIGUEL on NiPPV 7. Peripheral Neuropathy SYMPTOMS AND INTERVAL HISTORY: Seen with relative in room - discussed SCr trend - not worsening significantly, may be recovering in the next few days. INPATIENT MEDICATIONS: [START ON 06/29/2021] ipratropium-albuterol 1 ampule Inhalation BID fluticasone 2 spray Each Nostril BID sodium chloride flush 10 mL Intracatheter Q12H heparin flush 250 Units Intracatheter Q12H heparin flush 250 Units Intravenous 2 times per day gabapentin 300 mg Oral Daily guaiFENesin 600 mg Oral BID sodium chloride (Inhalant) 4 mL Nebulization TID cholestyramine 0.5 packet Oral Daily mometasone-formoterol 2 puff Inhalation BID pantoprazole 40 mg Oral QAM AC sodium hypochlorite Irrigation Daily mineral oil-hydrophilic petrolatum Topical BID collagenase Topical Daily stomahesive in petrolatum Topical BID melatonin 3 mg Oral Nightly sennosides-docusate sodium 2 tablet Oral BID polyethylene glycol 17 g Oral BID miconazole Topical BID Vitamin D 2,000 Units Per G Tube Daily enoxaparin 40 mg Subcutaneous BID INPATIENT INFUSIONS: dextrose 100 mL/hr (06/24/210) sodium chloride 25 mL (06/16/21 0928) PHYSICAL EXAM: Vitals: 06/28/21 0927 06/28/21 1638 06/28/21 1640 06/28/21 1717 BP: 126/79 Pulse: 99 Resp: 16 16 16 16 Temp: 97.5 F (36.4 C) TempSrc: Temporal SpO2: 96% 97% 97% 96% Weight: Height: Today's Weight: Weight: (!) 419 lb 8 oz (190.3 kg) Weight on Admission: Weight: (!) 418 lb (189.6 kg) Wt Readings from Last 3 Encounters: 06/25/21 (!) 419 lb 8 oz (190.3 kg) 06/01/20 (!) 418 lb (189.6 kg) Estimated body mass index is 69.81 kg/m as calculated from the following: Height as of this encounter: 5' 5 (1.651 m). Weight as of this encounter: 419 lb 8 oz (190.3 kg). Date 06/28/21 0000 - 06/28/21 2359 Shift 8417-8421 9200-6986 1050-8255 24 Hour Total INTAKE P.O.(mL/kg/hr) 800(0.5) 800 Shift Total(mL/kg) 800(4.2) 800(4.2) OUTPUT Shift Total(mL/kg) Weight (kg) 190.3 190.3 190.3 190.3 FIO2 needs: No data found. APPEARANCE: (-) distress EYES: (-) periorbital swelling (n) lids (n) conjunctivae (-) icterus EARS, NOSE, THROAT: (n) lips, gums, palate (-) mucosal cyanosis (n) external exam of nose, sinuses,ears NECK: (short) neck (midline) trachea (n) thyroid (-) lymphadenopathy (+) bucculus RESPIRATORY: (n) external symmetry (n) bony structures (n) auscultation anteriorly CARDIOVASCULAR: (n) S1 (n) S2 (-) S3 (-) rubs (-) murmurs (n) rhythm (n) pulses (-) bruits GASTROINTESTINAL: (-) tenderness (-) masses (-) abdominal wall edema (+) panniculus GENITOURINARY: not examined MUSCULOSKELETAL: (n) joints (poor) muscle tone (minimal at most) edema DERMATOLOGIC: (n) superficial inspection (n) turgor (n) texture NEUROLOGIC: (-) gross focal deficits PSYCHIATRIC: (appropriate) affect LABS AND DIAGNOSTICS: Recent Labs 06/26/21 0454 06/27/21 0101 06/28/21 0340 WBC 6.1 6.1 5.7 HGB 9.7* 9.1* 9.2* HCT 30.3* 28.3* 28.6* MCV 75.0* 75.2* 74.2* PLT 140 168 184 Lab Results Component Value Date IRON 27 (L) 06/23/2021 TIBC 273 06/23/2021 FERRITIN 358 (H) 06/21/2021 Recent Labs 06/25/21 2221 06/26/21 0454 06/27/21 0101 06/27/21 1310 06/28/21 0340 NA 126* < > 126* 126* 126* 130* K 4.3 < > 4.5 4.6 4.4 4.5 CL 96* < > 96* 96* 94* 98 CO2 22 < > 23 21* 25 23 BUN 43* < > 49* 50* 52* 56* CREATININE 2.46* < > 3.20* 3.03* 3.08* 3.14* GLUCOSE 194* < > 124* 122* 131* 118* CALCIUM 8.2* < > 8.2* 8.3* 8.5 8.5 MG 1.9 -- 2.0 -- 2.0 PHOS 3.8 -- 4.8* -- 5.7* ANIONGAP 8 < > 7 9 7 9 < > = values in this interval not displayed. Lab Results Component Value Date VITD25 19 (L) 06/03/2021 Lab Results Component Value Date CKTOTAL 160 06/03/2021 ALT 35 (H) 06/28/2021 AST 32 06/28/2021 Recent Labs 06/26/21 1520 COLORU Yellow LABSPEC 1.007 GLUCOSEU Normal LEUKOCYTESUR Negative BILIRUBINUR Negative UROBILINOGEN Normal RBCUA 3-5* WBCUA 3-5 BACTERIA Moderate* Lab Results Component Value Date HEPBCAB Negative 06/05/2021 HEPCAB NOT DETECTED 06/05/2021 RENAL US Right and left kidneys measure 11.7 x 6.3 x 6.6 cm and 15.9 x 5.5 x 6.4 cm respectively. Relative renal parenchymal echogenicity is normal. There is no hydronephrosis. Patient voided prior to the exam and the bladder is not visualized. IMPRESSION: No hydronephrosis. Large size of the left kidney with no focal mass noted. This may be a normal variant. ECHOCARDIOGRAM 1. Left ventricle: The cavity size is normal. Wall thickness is normal. Systolic function is normalby visual assessment. The estimated ejection fraction is 55%. 2. Technically difficult study. 3. No significant valve disease. 4. Unable to estimate RVSP. ASSESSMENT & RECOMMENDATIONS: 1. Renal Failure > Periodic monitoring and assessments for relevant interventions. > Renal Function is dependent on the status of the immediate insult, as well as that of the concurrent comorbidities. > Renal Dysfunction is likely from a combination of ATN from Vancomycin Toxicity and Intravascular Volume Depletion. > Urine Na+ of < 5 supportive of the latter - however overall trend appears more consistent with ATN. > Watch and wait, patient and family appraised. 2. Electrolytes > Periodic monitoring and assessments for relevant interventions. > Hyponatremia improving - may just be reflecting recovery from ATN (see above). 3. Acid - Base Balance > Periodic monitoring and assessments for relevant interventions. > (-) significant derangements. 4. Hypertension & Volume > Periodic monitoring and assessments for relevant interventions. > Antihypertensives: Normotensive on examination. Volume Status difficult to assess due to habitus. > Diuretics: No. 5. Anemia > Periodic monitoring and assessments for relevant interventions. > Not secondary to CKD. > Transfuse pRBCs as deemed necessary. 6. Hyperparathyroidism of Renal Etiology > Periodic monitoring and assessments for relevant interventions. > N/A. 7. Cardiovascular Risk Factors > No objection to agents such as Aspirin, Beta - Blockers, and Statins as deemed appropriate; risk for Cardiovascular Events significantly higher in patients with Chronic Renal Failure, more so inpatients requiring Renal Replacement Therapy. 8. Other > Maintain Normotension. > Avoid NSAIDs, Aminoglycosides, IV Contrast, other Nephrotoxic Agents, Fleet Enemas, and Mg++ containing laxatives. > Exercise caution with PROMISE-Is and ARBs, with emphasis on Hyperkalemia as well as excessive reductions in eGFR. > Dose medications appropriately based on Measured or Estimated Creatinine Clearance (eCrCl) rather than eGFR. > Do not cannulate veins on extremities with planned or existing Hemodialysis Arteriovenous Grafts or Fistulas. * MANDY PATRICK - 06/28/2021 6:40 PM EDT [facility] Respiratory Care Department Progress Note As part of the Respiratory Assessment Program (RAP), the following Respiratory Therapist evaluationhas been completed, including a chart review and clinical/physical assessment. Respiratory Therapist RAP Evaluation Guideline Points 0 1 2 3 4 Points Strongly Consider History Factor No Pulmonary conditions Stable Pulmonary condition(s) Surgery or Intervention that may impact Pulmonary system (at risk) Surgery or Intervention that is impacting Pulmonary system Active Exacerbation of Pulmonary Condition 0 Respiratory Pattern Regular, RR= 12-18 GARDINER or Increased RR= 19-24 Irregular, or RR= 25-30 SOB, talk in short sentences, or RR= 31-35 Severe SOB, accessory muscle use, one word answers, or RR>35 0 Aerosol Med(s), High Flow O2 Breath Sounds Clear Diminished in 1 lobe Diminished in ? 2 lobes Adventitious breath sounds Coarse crackles, Wheezes, or Diminished in >2 lobes 0 Aerosol Med(s), Bronchial Hygiene, Hyperinflation Cough & Sputum Strong cough, no secretion retention or production Weak cough, no secretion retention or production Weak cough, w/ production (less often than Q2hr), or secretion retention No cough, w/ secretion retention or production (less often than Q2hr) Significant secretion production (more often than Q2hr) or mucus plug 0 Aerosol Med(s), Bronchial Hygiene, Hyperinflation Level of Activity Ambulatory Ambulatory with Assist Up in chair or edge of bed (dangle) Non-ambulatory, bedridden with active ROM Completely paralyzed or without active ROM 0 Triage 5 0-2 Triage 4 3-5 Triage 3 6-10 Triage 2 11-14 Triage 1 ?15 Total 0 Triage Score = 5 TRIAGE SCORING SUGGESTED FREQUENCIES Aerosol Therapy Bronchial Hygiene Hyperinflation Triage Score Q4h & PRN 1 Q4hWA (QID) & PRN 2 TID & PRN 3 BID & PRN 4 PRN 5 Therapy(s) Indicated Yes/No Aerosol Medication No Hyperinflation No Bronchial Hygiene No High Flow Oxygen No RT to enter/modify frequency of treatment order in EMR/EHR to match this RAP evaluation. Based on this RAP evaluation the following therapy is being initiated: Sod Chl At the following frequency: BID Comments:Sod Chloride should only be ordered as BID Thank you for involving Respiratory in the care of this patient, * Senia Gutiérrez, JUICE WEIGHER - 06/28/2021 2:42 PM EDT Physical Therapy Facility/Department: [facility] Daily Treatment Note NAME: Jesusita England : 1970 Date of Service: 06/28/2021 Discharge Recommendations: IP Rehab Assessment Body structures, Functions, Activity limitations: Decreased functional mobility ;Decreased ADL status;Decreased strength;Decreased balance;Decreased endurance Assessment: Pt present with the above deficits. Pt tolerated bed level ther ex well with manual resistance for strengthening. Pt compliant with ther ex that was given yesterday. Weakness and decreased endurance still most limiting factor. Pt pleasant and motivated for therapy. Rec rehab up discharge. REQUIRES PT FOLLOW UP: Yes Activity Tolerance Activity Tolerance: Patient limited by fatigue;Patient limited by endurance Patient Diagnosis(es): The encounter diagnosis was Pressure injury of right buttock, stage 3 (HCC). has a past medical history of Allergic rhinitis, Anemia, Chronic diarrhea, GERD (gastroesophageal reflux disease), Joint pain, Morbid obesity (HCC), and MIGUEL (obstructive sleep apnea). has a past surgical history that includes Cholecystectomy; hip surgery; and Heel spur surgery. Restrictions Restrictions/Precautions Restrictions/Precautions: Fall Risk Required Braces or Orthoses?: No Position Activity Restriction Other position/activity restrictions: COVID 19- off isolation; [facility]; 2LO2 NC; lucho Subjective General Chart Reviewed: Yes Family / Caregiver Present: No Subjective Subjective: Pt in bed, HOB elevated and agreeable to PT. Pain Screening Patient Currently in Pain: Denies Vital Signs Patient Currently in Pain: Denies Objective Exercises Straight Leg Raise: x 10 reps each, AAROM Quad Sets: x 10 reps each Heelslides: 2x10 reps, AAROM LLE Hip Extension/Leg Presses: x 10 reps each with manual resist in extn Hip Abduction: 2 x 10 reps each supine with manual resist for Abd/ADd Knee Short Arc Quad: x 10 reps each Ankle Pumps: x 10 reps each AM-PAC Score [facility] Inpatient Mobility Raw Score : 7 (06/28/21 144) [facility] Inpatient T-Scale Score : 26.42 (06/28/21 144) Mobility Inpatient CMS 0-100% Score: 92.36 (06/28/21 144) Mobility Inpatient CMS G-Code Modifier : CM (06/28/211440) Goals Short term goals Time Frame for Short term goals: 2 weeks Short term goal 1: bed mobility min assist.; NOT MET Short term goal 2: transfers mod assist.; NOT MET Short term goal 3: sitting balance goodstatic standing x 2 min with min. assist; NOT MET Short term goal 4: ambulate 15 ft with device, mod assist.; NOT MET Short term goal 5: secretion clearance, IS 1500 ml and HEP independent; PROGRESSING Patient Goals Patient goals : To get stronger. Plan Plan Times per week: 5x/wk Plan weeks: 2 Specific instructions for Next Treatment: functional strength/endurance training. Current Treatment Recommendations: Strengthening, Transfer Training, Balance Training, Gait Training, Functional Mobility Training, Endurance Training Plan Comment: Cont PT POC Safety Devices Type of devices: All fall risk precautions in place, Call light within reach, Patient at risk for falls, Left in bed Restraints Initially in place: No Therapy Time Individual Concurrent Group Co-treatment Time In 1406 Time Out 1430 Minutes 24 Timed Code Treatment Minutes: 24 Minutes (tpx2) Senia Gutiérrez PTA * Lanny Mejia, WEB MERCHANT - DIRECTOR REPORT - 06/28/2021 1:28 PM EDT Images from the original note were not included. [facility] Wound Care Follow up Note Jesusita England AGE: 51 y.o. GENDER: female : 1970 EPISODE DATE: Subjective: HISTORY of PRESENT ILLNESS HPI Jesusita England is a 51 y.o. female who presents for a wound follow up. History of Wound Context: Patient presented 3 weeks ago as a transfer from [facility] due to level of care benefits at [facility] and deterioration. At time, pt stated that for the past week, she has had SOB.. Additional symptoms include purulent cough (uncertain the exact context of the sputum), unintentional loss of weight (reportedly 30 Ibs per patient), chills, fever of 102, chills, myalgias, and subacute lower extremity calf pain and mild swelling. The patient mentions that all these symptoms occurred after direct exposure from her who is COVID positive. She attempted a week's worth of conservative care as an outpatient and pharmacological treatment with PO dexamethasone for 2 days prescribed by her PCP. Her home O2 saturations on RA was approximately 70%. Unfortunately,her condition deteriorated where she needed medical evaluation. Patient arrived to [facility] on06/02/21. Interval History: The patient is currently not on antibiotics. Ulcer Identification: Ulcer Type: pressure Contributing Factors: edema, chronic pressure, decreased mobility and obesity PAST MEDICAL HISTORY Diagnosis Date Allergic rhinitis Anemia Chronic diarrhea GERD (gastroesophageal reflux disease) Joint pain Morbid obesity (HCC) MIGUEL (obstructive sleep apnea) PAST SURGICAL HISTORY Past Surgical History: Procedure Laterality Date CHOLECYSTECTOMY HEEL SPUR SURGERY HIP SURGERY FAMILY HISTORY Family History Problem Relation Age of Onset Other Mother Alzheimers disease SOCIAL HISTORY Social History Tobacco Use Smoking status: Never Smoker Smokeless tobacco: Never Used Substance Use Topics Alcohol use: Not Currently Drug use: Never ALLERGIES No Known Allergies MEDICATIONS No current facility-administered medications on file prior to encounter. Current Outpatient Medications on File Prior to Encounter Medication Sig Dispense Refill omeprazole (PRILOSEC) 20 MG delayed release capsule Take 20 mg by mouth Daily ferrous sulfate (IRON 325) 325 (65 Fe) MG tablet Take 325 mg by mouth daily (with breakfast) acetaminophen (TYLENOL) 500 MG tablet Take 1,000 mg by mouth every 6 hours as needed for Pain aspirin 81 MG chewable tablet Take 81 mg by mouth daily Lactobacillus (ACIDOPHILUS) TABS Take 1 tablet by mouth daily cyclobenzaprine (FLEXERIL) 10 MG tablet Take 10 mg by mouth 3 times daily as needed for Muscle spasms gabapentin (NEURONTIN) 300 MG capsule Take 300 mg by mouth 3 times daily. benzonatate (TESSALON) 200 MG capsule Take 200 mg by mouth 3 times daily as needed for Cough Ascorbic Acid (VITAMIN C) 1000 MG tablet Take 1,000 mg by mouth daily zinc 50 MG CAPS Take 1 capsule by mouth daily Cholecalciferol (VITAMIN D3) 125 MCG (5000 UT) TABS Take 1 tablet by mouth daily furosemide (LASIX) 20 MG tablet Take 20 mg by mouth daily cholestyramine (QUESTRAN) 4 g packet Take 1 packet by mouth daily albuterol sulfate HFA 108 (90 Base) MCG/ACT inhaler Inhale 2 puffs into the lungs every 6 hours as needed for Wheezing dexamethasone (DECADRON) 6 MG tablet Take 6 mg by mouth daily REVIEW OF SYSTEMS Negative. Noted pt on NC Objective: BP 105/63 Pulse 86 Temp 96.2 F (35.7 C) (Temporal) Resp 16 Ht 5' 5 (1.651 m) Wt (!) 419 lb 8 oz (190.3 kg) SpO2 96% BMI 69.81 kg/m PHYSICAL EXAM General Appearance: alert and oriented to person, place and time, well-developed and well-nourished, in no acute distress Lower back: improved. 1h5mrnr yellow slough with surrounding pink tissue. Fungal component. Scant serosang drainage. Note blistered area proximal to site from tape. Right buttock: improved 1x1x0.1 pink tissue without drainage at this time. Nonblanchable. periwoundintact Abdominal folds: minimal excoriation noted Bilateral lower ext: edematous and dry LABS CBC: Lab Results Component Value Date WBC 5.7 06/28/2021 HGB 9.2 06/28/2021 HCT 28.6 06/28/2021 MCV 74.2 06/28/2021 PLT 184 06/28/2021 BMP: Lab Results Component Value Date NA 130 06/28/2021 K 4.5 06/28/2021 CL 98 06/28/2021 CO2 23 06/28/2021 PHOS 5.7 06/28/2021 BUN 56 06/28/2021 CREATININE 3.14 06/28/2021 PT/INR: Lab Results Component Value Date PROTIME 10.8 06/03/2021 INR 1.0 06/03/2021 Prealbumin: No results found for: PREALBUMIN Albumin: Lab Results Component Value Date LABALBU 2.7 06/28/2021 Sed Rate:No results found for: SEDRATE Micro: Lab Results Component Value Date BC No growth at 5 days. 06/19/2021 BC No growth at 5 days. 06/19/2021 Assessment/Plan: 1. Lower back unstageable pressure injury - cleanse with dakins, apply nickel thick collagenase ointment, cover with maxorb and abd dressing daily- no tape 2. Right buttock stage 3 pressure injury - cleanse with NS, apply ET mix BID and PRN 3. Abdominal folds fungal dermatitis - continue current treatment of miconazole powder 4. Bilateral lower extremity/feet dermatitis - cleanse with NS, apply aquaphor BID and PRN 5. Nutritional support 6. Follow up with wound care. Any questions or concerns please vocera or perfect serve wound care. Thank you for the consult! * Wander Arreguin MD - 06/28/2021 10:48 AM EDT Images from the original note were not included. [facility] [place] [facility], Pulmonary Critical Care and Sleep Medicine Patient - Jesusita England, Age - 51 y.o. - 1970 Room Number - [id number] Consulting - Ruth Soni DO Primary Care Physician - No primary care provider on file. [facility] # - [id number] Date of Admission - 06/03/2021 1:32 PM Hospital Day - 25 Subjective/Events Past 24 hours/ROS Awake, answering questions appropriately. Breathing is good. Objective Vitals height is 5' 5 (1.651 m) and weight is 419 lb 8 oz (190.3 kg) (abnormal). Her temporal temperatureis 96.2 F (35.7 C). Her blood pressure is 105/63 and her pulse is 86. Her respiration is 16 and oxygen saturation is 96%. O2 Flow Rate (L/min): 2 L/min I/O Intake/Output Summary (Last 24 hours) at 06/28/2021 1048 Last data filed at 06/28/2021 1001 Gross per 24 hour Intake 500 ml Output 600 ml Net -100 ml Patient Vitals for the past 96 hrs (Last 3 readings): Weight 06/25/21 0704 (!) 419 lb 8 oz (190.3 kg) Exam General Appearance Awake, alert, oriented, in no acute distress HEENT - normocephalic, atraumatic, sclarea is anicteric, conjunctiva is pink Neck - Supple, trachea midline Lymph nodes- no cervical, clavicular, or posterior auricular lymphadenopathy Lungs Normal effort, no conversational dyspnea. No wheeze, no rhonchi, no crackle. Cardiovascular - Heart sounds are normal. Regular rate and rhythm Abdomen - Soft, nontender, nondistended Neurologic - Awake, alert, follows commands. There are no focal motor deficits grossly Skin - No bruising or bleeding, good turgor, normal warmth Extremities - No clubbing, cyanosis Psychiatric: appropriate, oriented to person, place and time/date Meds fluticasone 2 spray Each Nostril BID sodium chloride flush 10 mL Intracatheter Q12H heparin flush 250 Units Intracatheter Q12H heparin flush 250 Units Intravenous 2 times per day gabapentin 300 mg Oral Daily guaiFENesin 600 mg Oral BID sodium chloride (Inhalant) 4 mL Nebulization TID bisacodyl 10 mg Rectal Daily cholestyramine 0.5 packet Oral Daily mometasone-formoterol 2 puff Inhalation BID pantoprazole 40 mg Oral QAM AC ipratropium-albuterol 1 ampule Inhalation TID sodium hypochlorite Irrigation Daily mineral oil-hydrophilic petrolatum Topical BID collagenase Topical Daily stomahesive in petrolatum Topical BID melatonin 3 mg Oral Nightly sennosides-docusate sodium 2 tablet Oral BID polyethylene glycol 17 g Oral BID miconazole Topical BID Vitamin D 2,000 Units Per G Tube Daily enoxaparin 40 mg Subcutaneous BID dextrose 100 mL/hr (06/24/210) sodium chloride 25 mL (06/16/21 0928) sodium chloride flush, heparin flush, sodium chloride flush, sodium chloride, sodium chloride (Inhalant), phenol, hydrOXYzine, ipratropium-albuterol, benzocaine, traZODone, bisacodyl, stomahesive in petrolatum, glucose, dextrose, glucagon (rDNA), dextrose, sodium chloride, ondansetron OR ondansetron, magnesium hydroxide, acetaminophen OR acetaminophen, hydrocortisone-aloe Labs CBC Recent Labs 06/28/21 0340 WBC 5.7 HGB 9.2* HCT 28.6* MCV 74.2* PLT 184 BMP: Recent Labs 06/28/21 0340 NA 130* K 4.5 CL 98 CO2 23 BUN 56* CREATININE 3.14* GLUCOSE 118* MG 2.0 PHOS 5.7* LIVER PROFILE Recent Labs 06/28/21 0340 AST 32 ALT 35* BILIDIR 0.0 BILITOT 0.4 ALKPHOS 91 Cultures All reviewed Urine culture positive E. coli Blood cultures positive Staph hominis Sputum cultures with moderate normal pretty Pneumonia molecular panels were negative Radiology CXR Reviewed (See actual reports for details) Echocardiogram: 1. Left ventricle: The cavity size is normal. Wall thickness is normal. Systolic function is normal by visual assessment. The estimated ejection fraction is 55%. 2. Technically difficult study. 3. No significant valve disease. 4. Unable to estimate RVSP. 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) use of antibiotics [Z79.2] MIRIAM (acute kidney injury) (HCC) [N17.9] Hyponatremia [E87.1] Poor intravenous access [Z78.9] Pressure injury of right buttock, stage 3 (HCC) [L89.313] Insomnia [G47.00] Constipation [K59.00] Gastroesophageal reflux disease without esophagitis [K21.9] Angular cheilitis [K13.0] COVID-19 [U07.1] Anxiety [F41.9] Palliative care encounter [Z51.5] Pneumonia due to COVID-19 virus [U07.1, J12.82] 06/03/2021 Assessment and Plan 1 acute hypoxic respiratory failure, improving 2 Covid pneumonia 3 MRSA, MSSA pneumonia 4 volume overload 5 MIRIAM 6 never smoker 7 MIGUEL compliant with CPAP 8 morbid obesity Plan: 1 wean oxygen 2 Dulera and aerosols; not sure these are needed long-term 3 volume management per nephrology 4 okay to discharge from pulmonary perspective; focus on rehabilitation. Case discussed with patient. Questions and concerns addressed. * Horacio Linares, DO - 06/28/2021 7:43 AM EDT Images from the original note were not included. Med Team Progress Note Jesusita England : 1970(51 y.o.) Date: June 28, 2021 Med Team: Jennifer Attending: Dr. Sellers Chief Complaint: SOB Subjective: - No acute events overnight. - Currently, pt resting in bed. Her nose feels better after a day without the NC in her nose. She is continuing to have BMs. She worked with PT yesterday and they stood her up 3 times. Her only concern is her kidney function at this time. Review of Systems Constitutional: Negative for chills, fatigue and fever. HENT: Negative for ear pain, hearing loss, sinus pain, sore throat and trouble swallowing. Eyes: Negative for pain and redness. Respiratory: Positive for cough. Negative for chest tightness and shortness of breath. Cardiovascular: Positive for leg swelling. Negative for chest pain and palpitations. Gastrointestinal: Negative for abdominal pain, constipation, diarrhea, nausea and vomiting. Endocrine: Negative for polyphagia and polyuria. Genitourinary: Negative for difficulty urinating, dysuria and urgency. Musculoskeletal: Negative for back pain, joint swelling and neck pain. Skin: Positive for wound. Negative for color change and rash. Neurological: Positive for weakness. Negative for dizziness, light-headedness, numbness and headaches. Psychiatric/Behavioral: Negative for agitation and confusion. Scheduled Meds: fluticasone 2 spray Each Nostril BID sodium chloride flush 10 mL Intracatheter Q12H heparin flush 250 Units Intracatheter Q12H heparin flush 250 Units Intravenous 2 times per day gabapentin 300 mg Oral Daily guaiFENesin 600 mg Oral BID sodium chloride (Inhalant) 4 mL Nebulization TID bisacodyl 10 mg Rectal Daily cholestyramine 0.5 packet Oral Daily magnesium oxide 400 mg Oral BID mometasone-formoterol 2 puff Inhalation BID pantoprazole 40 mg Oral QAM AC ipratropium-albuterol 1 ampule Inhalation TID sodium hypochlorite Irrigation Daily mineral oil-hydrophilic petrolatum Topical BID collagenase Topical Daily stomahesive in petrolatum Topical BID melatonin 3 mg Oral Nightly sennosides-docusate sodium 2 tablet Oral BID polyethylene glycol 17 g Oral BID miconazole Topical BID Vitamin D 2,000 Units Per G Tube Daily enoxaparin 40 mg Subcutaneous BID Continuous Infusions: dextrose 100 mL/hr (06/24/212109) sodium chloride 25 mL (06/16/21927) PRN meds used in last 24hrs: NA Objective: BP 105/63 Pulse 86 Temp 96.2 F (35.7 C) (Temporal) Resp 20 Ht 5' 5 (1.651 m) Wt (!) 419 lb 8 oz (190.3 kg) SpO2 96% BMI 69.81 kg/m Physical Exam Constitutional: General: She is not in acute distress. Appearance: She is obese. HENT: Head: Normocephalic and atraumatic. Right Ear: External ear normal. Left Ear: External ear normal. Nose: Nose normal. Mouth/Throat: Mouth: Mucous membranes are moist. Pharynx: Oropharynx is clear. Eyes: General: Right eye: No discharge. Left eye: No discharge. Extraocular Movements: Extraocular movements intact. Pupils: Pupils are equal, round, and reactive to light. Cardiovascular: Rate and Rhythm: Normal rate and regular rhythm. Pulses: Normal pulses. Heart sounds: Normal heart sounds. Pulmonary: Effort: Pulmonary effort is normal. Breath sounds: Wheezing (slight end expiratory) present. No rales. Abdominal: General: Abdomen is flat. There is no distension. Palpations: Abdomen is soft. Tenderness: There is no abdominal tenderness. Musculoskeletal: General: Normal range of motion. Cervical back: Normal range of motion and neck supple. No rigidity or tenderness. Right lower leg: Edema present. Left lower leg: Edema present. Skin: General: Skin is warm and dry. Capillary Refill: Capillary refill takes less than 2 seconds. Findings: No bruising or rash. Comments: PICC in R arm Neurological: General: No focal deficit present. Mental Status: She is alert and oriented to person, place, and time. Sensory: No sensory deficit. Motor: Weakness present. Psychiatric: Mood and Affect: Mood normal. [facility] within last 24 hours Lab Results Component Value Date/Time WBC 5.7 06/28/2021 03:40 AM Hemoglobin 9.2 (L) 06/28/2021 03:40 AM Hematocrit 28.6 (L) 06/28/2021 03:40 AM Platelets 184 06/28/2021 03:40 AM MCV 74.2 (L) 06/28/2021 03:40 AM Lab Results Component Value Date/Time Sodium 130 (L) 06/28/2021 03:40 AM Potassium 4.5 06/28/2021 03:40 AM Chloride 98 06/28/2021 03:40 AM CO2 23 06/28/2021 03:40 AM BUN 56 (H) 06/28/2021 03:40 AM CREATININE 3.14 (H) 06/28/2021 03:40 AM CREATININE 3.08 (H) 06/27/2021 01:10 PM Glucose 118 (H) 06/28/2021 03:40 AM Calcium 8.5 06/28/2021 03:40 AM Magnesium 2.0 06/28/2021 03:40 AM Phosphorus 5.7 (H) 06/28/2021 03:40 AM Lab Results Component Value Date/Time AST 32 06/28/2021 03:40 AM ALT 35 (H) 06/28/2021 03:40 AM Total Protein 6.0 (L) 06/28/2021 03:40 AM Albumin,Serum 2.7 (L) 06/28/2021 03:40 AM Total Bilirubin 0.4 06/28/2021 03:40 AM Alkaline Phosphatase 91 06/28/2021 03:40 AM Assessment and Plan: Acute Respiratory Failure 2/2 COVID PNA + MSSA PNA + Moderate Pulm edema/Effusions - S/p remdesevir/decadron. S/p intubation from 06/04-06/18. - Cont duonebs QID + dulera qd - Pt O2 sat 98% on 2 L - Wean oxygen as able - incentive spirometry to restrenghten lungs and open airway - mucinex, acapella, nebulized hypertonic saline to break up mucous - Flonase for nasal symptoms - Pulm following MIRIAM 2/2 Lasix, Vancomycin toxicity - sCr 3.14 today, repeat BMP this afternoon - nephrology following, - retroperitoneal ultrasound: No hydronephrosis, large left kidney, may be normal varient - 1.2 L fluid restriction per Nephrology Hypovolemic Hyponatremia - Na 130 today up from 126 - nephrology following - Cortisol 10, drawn at 3 am - 1.2 L fluid restriction per Nephrology Hyperphosphatemia 2/2 MIRIAM -Phos 5.7 this AM -Repeat Phos tomorrow -Nephrology Following -Renal Diet PIV Issues - Received PICC line yesterday, pt tolerated procedure well and PICC line is functional Debility 2/2 Intubation and ICU admission - PT/OT - PT stood her up 3 times yesterday - patient appears to be highly motivated to increase physical activity - PT recommends IP rehab - OT recommends IP rehab Anemia with low MCV 2/2 iron deficiency - Iron 27; Sat 10; TIBC 273 indicates iron deficiency anemia - Ferrous sulfate once constipation is resolved - IV iron once pt is not bacteremic VAP 2/2 MRSA + now MSSA again. - completed abx course - Continue to monitor respiratory status. If pt gets a fever, purulent sputum, or other sign of infection will repeat cultures as appropriate Constipation - may be 2/2 questran 4 g. Pt is resistant to hold questran - Senokt PO bid; Glycolax 17 g po bid - dulcolex suppository PRN - 1/2 dose of questran - pt is having multiple BMs Hypomagnesium (Resolved) -Mg normal for multiple days -Will DC MgOx Staph Hominis Bacteremia likely 2/2 CVC related - s/p removed line. - Abx completed, will continue to monitor E.Coli UTI (UCx 06/16: PanSn UTI s/p Cefepime Tx) - replaced urethral galeano with urethral Pure Wick external cath Dysphagia/ Post extubation dysphagia - [employer] therapy following - Protonix 40 mg po qd if it is GERD related dysphagia, but likely post intubation dysphagia B/l Stasis Dermatitis, Wounds - aquaphor ointment bid apply to b/l LE and feet - wound care to see pt today Right Guttock Stage 3 pressure injury Lower back unstageable pressure injury -Wound care to see pt today -Will follow wound care recs for care Morbid Obesity with probable obesity hypoventilation syndrome - f/u outpatient with pulmonology MIGUEL Asthma - palliative following, appreciate input - dulera PO + duonebs qid Peripheral Neuropathy - gabapentin 300 mg TID Sepsis 2/2 above (resolved) Rising Alk Phos (resolved) - Goals of Care: FULL CODE - DVT Prophylaxis: lovenox 40 q24h - creatinine clearance > 30 - GI Prophylaxis: Protonix daily - Diet: Renal and Fluid Restriction - 1200mL Associated attestation - Shashank Sellers MD - 06/28/2021 3:16 PM EDT I have discussed the care of Jesusita England with the medical student and/or resident. I have personally taken a history, examined the patient, and performed the associated medical decision making activities. I have reviewed & verified the attested documentation. Unless otherwise noted below, this documentation reflects the history, physical exam, and medical decision making that I performed myself. Please see note for my personal highlights or additions in Green. Patient seen and examined personally at 1100 (Date of Service: 06/28/21) Roach Changes to Care Plan: - Oxygen status continues to improve - Constipation resolved - PT to see patient today. - Appreciate nephrology input regarding MIRIAM. Once MIRIAM is improving and nephrology okay with disposition, patient will likely be stable for discharge to facility to start aggressive rehabilitation. Pager: [phone] I spent over 51% total time of 40 minutes counseling (or coordinating care). Discussed current planof care with patient. Coordinated care with resident team. * Latosha Kay P - 06/27/2021 3:22 PM EDT Images from the original note were not included. Nephrology Progress Note Patient: Jesusita England Room number: [id number] Date of Admit: 06/03/2021 LOS: 24 days Admitting physician: Ruth Soni DO Referring physician: Ruth Soni DO Assessment/Plan: In brief, Jesusita England is a 51 yo F w/a PMH super morbid obesity, chronic bile acid diarrhea on cholestyramine, MIGUEL, GERD, asthma, and iron deficiency anemia who was admitted to the ICU 06/03 for acute hypoxic respiratory failure 2/2 COVID-19 PNA and required intubation and MV 06/04. Her hospital course has been complicated by MSSA PNA, MRSA VAP, evin VAP, E. Coli UTI, and staph hominis bacteremia. She underwent 7 days of IV vancomycin treatment for staph bacteremia. She received IV Lasix through 06/22 at which time her Scr began to uptrend and diuresis was discontinued. She was extubated 06/18 and transferred to the [facility] and has remained on 5L NC. Her Scr has continued to uptrend since despite holding diuresis. Nephrology was consulted for MIRIAM and hyponatremia. 1. Non-oliguric MIRIAM: Suspect etiology ATN 2/2 vancomycin-induced renal toxicity. Timing appropriateand vancomycin level 06/26 supratherapeutic at 58.2, down to 52.2 today. Patient is also high risk given morbid obesity and concomitant exposure to loop diuretics.No peripheral eosinophilia to suggest AIN. FeUrea 12.5%. Still likely vancomycin as driving factor of MIRIAM. RP US shows normal echogenicity with enlarged left kidney. Currently no uremic symptoms or indications for HD. Will trend daily vanc level to ensure down-trending. UOP okay at 975cc. Cr might be leveling off now since vancomycin has been stopped, will continue to monitor. Strict I&O. 2. Hyponatremia: Na 126 today, on admission was 137. Downtrend in Na correlates w/discontinuation of Lasix raising question of hypervolemic hyponatremia; however, urine studies from 06/24 demonstrated urine Na < 5 and urine osm > 100. Can still see low urine sodium levels in hypervolemic state. Will trial change of fluid restriction to 1.2L as patient is possibly in hypervolemic state. 3. Acid/base: Bicarb 25, no active issues. Will continue to monitor. 4. BP/volume status: BP has remained WNL. Not on any antihypertensive medications. Difficult to assess volume status clinically. Na improved w/IVF but respiratory status/CXR worsened. 5. Iron deficiency anemia: Iron 27 this admission w/Tsat of 10. Agree w/ferrous sulfate supplementation. Blood cx cleared. Will defer to primary team given constipation. 6. Vitamin D deficiency: 25-hydroxy vit D level this admission 19. Continue 2000u daily. 7. Sepsis and acute hypoxic respiratory failure: d/t COVID-19 PNA, MRSA/MSSA/potentially evin VAP, E. Coli UTI, and staph hominis bacteremia in the setting of MIGUEL, asthma, and super morbid obesity. Sepsis resolved. O2 requirements improved, now only on 2 L NC. 8. Edema: Trace b/l LE noted. Last albumin yesterday 2.7. If intravascular volume expansion is needed could consider concomitant albumin infusion. Continued avoidance of nephrotoxins. Medication dose adjustment: CrCl < 37 ml/min Will follow along as directed. Attendin yo with MIGUEL, GERD, asthma, iron deficiency and morbid obesity, admitted 06/01 initiallyfor covid 19 PNA, requiring intubation. Course complicated by MSSA and MRSA PNA, Evin VAP, E. Coli cystitis, and staph hominis bacteremia. Consulted for MIRIAM and hyponatremia. In terms of MIRIAM, no labs available prior to admit, (06/01) Cr 0.67 and was stable running 0.5-0.9 until 06/24 1.26 and has progressively increased since then, peaked at 3.2 now 3 (hopefully leveling off). Decent UO 900 mL. Was getting lasix from 06/06 to 06/23 (help due to MIRIAM), then (06/25) lasix 40 iv x 1. Getting Abx zyvox, zosyn, then Vanc started at 2q q12 last 06/19 dc 06/26 due to vanc level 58. No low BP, no exposure to IV dye, renal us no obstruction (L kidney large ? Normal variant) - suspect MIRIAM secondary to Vancomycin toxicity. Pt has risk factors that predispose her to it: Large BMI, high dose Vanc, concomitant use of Zosyn/lasix & timing of devt of MIRIAM (can start 4 days post-exposure) along with high level are all supportive of this. She has noovert uremic sx. Hesitant to start IVF given her tenuous resp status. Would continue to check dailyVanc level to ensure it is trending down (level not drawn today). Hyponatremia: Pt did not have issue with hyponatremia (in fact was running higher Na initially). Was getting lasix 06/06-06/23, then (06/24) Na 131 dropped to 124. Got 1 dose lasix (06/25), last na [id number]. Will not give IVF or lasix for now unless acutely indicated. Her o2 reqts have come down, continue FR. Dr april Araujo will be covering 06/18-06/30, I will be back Thursday Latosha Kay MD Pager [phone] [facility] [phone] HPI: Jesusita England is a 51 y.o. female with chronic stable problems: As above Initial admit diagnosis: Pneumonia due to COVID-19 virus [U07.1, J12.82] Interval history/events: No acute events overnight. She is having bowel movements. She denies any nausea, vomiting, or abdominal pain. She states that her shortness of breath is improved. Still complaining of some edema. Past Medical History: Diagnosis Date Allergic rhinitis Anemia Chronic diarrhea GERD (gastroesophageal reflux disease) Joint pain Morbid obesity (HCC) MIGUEL (obstructive sleep apnea) Medications: MARS reviewed. Review of Systems: All other ROS negative except those noted above. Physical Exam: Vitals: 06/27/21 0843 06/27/21 0903 06/27/21 0923 06/27/21 1351 BP: Pulse: Resp: 20 16 16 16 Temp: TempSrc: SpO2: 98% 97% 96% 95% Weight: Height: Admission weight: (!) 418 lb (189.6 kg) Wt Readings from Last 3 Encounters: 06/25/21 (!) 419 lb 8 oz (190.3 kg) 06/01/20 (!) 418 lb (189.6 kg) Date 06/27/21 0000 - 06/27/21 2359 Shift 6331-6810 4381-5954 4547-3917 24 Hour Total INTAKE Shift Total(mL/kg) OUTPUT Urine(mL/kg/hr) 600 600 Shift Total(mL/kg) 600(3.2) 600(3.2) Weight (kg) 190.3 190.3 190.3 190.3 General Appearance no acute distress, comfortable appearing, looks stated age. Alert and oriented x3 , morbidly obese HEENT Neck anicteric sclera, moist mucus membranes, normal external ears/nares, no facial edema, EOMI supple neck, midline trachea without tracheal deviation, no discernible JVD, no palpable cervical or supraclavicular lymph nodes Chest symmetric, normal shape/expansion, no chest wall/sternal tenderness Heart RRR, no audible pericardial rubs, no audible murmurs, no palpable LV heave. Lungs Diffuse rales on auscultation, unlabored respirations without conversational dyspnea, on 2L NC, no accessory muscle use Abdomen Skin Obese, soft without distension, normal bowel sounds, no abdominal striae, no rebound or guarding, nontender to palpation no rash or subcutaneous nodules, warm and dry skin with good turgor Musculoskeletal no synovitis or joint effusions noted, no leg edema, normal hair distribution on legs purewick present Neurologic no resting tremor, asterixis or ankle clonus. Able to follow commands. Psychiatric mood and affect animated, insight and judgment intact. LABS: Recent Labs 06/25/21 0349 06/26/21 0454 06/27/21 0101 WBC 7.2 6.1 6.1 HGB 10.7* 9.7* 9.1* HCT 33.6* 30.3* 28.3* MCV 74.9* 75.0* 75.2* PLT 155 140 168 Lab Results Component Value Date IRON 27 (L) 06/23/2021 TIBC 273 06/23/2021 FERRITIN 358 (H) 06/21/2021 No results found for: [id number] Recent Labs 06/25/21 0349 06/25/21 1405 06/25/21 2221 06/25/21 2221 06/26/21 0454 06/27/21 0101 06/27/21 1310 NA 125* < > 126* < > 127* 126* 126* 126* K 4.2 < > 4.3 < > 4.1 4.5 4.6 4.4 CL 96* < > 96* < > 95* 96* 96* 94* CO2 20* < > 22 < > 25 23 21* 25 BUN 37* < > 43* < > 44* 49* 50* 52* CREATININE 1.98* < > 2.46* < > 2.69* 3.20* 3.03* 3.08* GLUCOSE 129* < > 194* < > 120* 124* 122* 131* CALCIUM 8.7 < > 8.2* < > 8.4 8.2* 8.3* 8.5 MG 2.1 -- 1.9 -- -- 2.0 -- PHOS 4.0 -- 3.8 -- -- 4.8* -- ANIONGAP 9 < > 8 < > 7 7 9 7 < > = values in this interval not displayed. Lab Results Component Value Date CALCIUM 8.5 06/27/2021 PHOS 4.8 (H) 06/27/2021 No components found for: [id number] Recent Labs 06/26/21 1520 COLORU Yellow LABSPEC 1.007 GLUCOSEU Normal LEUKOCYTESUR Negative BILIRUBINUR Negative UROBILINOGEN Normal RBCUA 3-5* WBCUA 3-5 BACTERIA Moderate* Diagnostic Studies: CXR: reviewed in PACS. Personally reviewed available data [labs, MARS, radiologic studies, and electronic records]. Pleasecall with any questions. * Senia Gutiérrez, JUICE WEIGHER - 06/27/2021 3:05 PM EDT Physical Therapy Facility/Department: [facility] Daily Treatment Note NAME: Jesusita England : 1970 Date of Service: 06/27/2021 Discharge Recommendations: IP Rehab Assessment Body structures, Functions, Activity limitations: Decreased functional mobility ;Decreased ADL status;Decreased strength;Decreased balance;Decreased endurance Assessment: Pt precert for updated PT note. Pt present with the above deficits requiring max assistx 2 skilled therapist for bed mobility, transfers and balance. Generalized weakness most limiting factor. Pt very motivated and appropriate for rehab. Rec rehab upon discharge. REQUIRES PT FOLLOW UP: Yes Activity Tolerance Activity Tolerance: Patient limited by fatigue;Patient limited by endurance Patient Diagnosis(es): The encounter diagnosis was Pressure injury of right buttock, stage 3 (HCC). has a past medical history of Allergic rhinitis, Anemia, Chronic diarrhea, GERD (gastroesophageal reflux disease), Joint pain, Morbid obesity (HCC), and MIGUEL (obstructive sleep apnea). has a past surgical history that includes Cholecystectomy; hip surgery; and Heel spur surgery. Restrictions Restrictions/Precautions Restrictions/Precautions: Fall Risk Required Braces or Orthoses?: No Position Activity Restriction Other position/activity restrictions: COVID 19- off isolation; HilRom phi bed; 2LO2 NC; lucho Subjective General Chart Reviewed: Yes Family / Caregiver Present: Yes (sister and daughter) Subjective Subjective: Pt in bed, HOB elevated, excited to see therapy. Agreeable to PT. General Comment Comments: Pt precert for updated PT note. 2 skilled therapist for safety, balance, transfer and positioning Pain Screening Patient Currently in Pain: No Vital Signs Patient Currently in Pain: No Orientation Cognition Objective Bed mobility Supine to Sit: Maximum assistance;2 Person assistance Sit to Supine: Maximum assistance;2 Person assistance Scooting: Maximal assistance Comment: HOB elevated and slide assist sheet used. Transfers Sit to Stand: Maximum Assistance;2 Person Assistance Stand to sit: Maximum Assistance;2 Person Assistance Comment: x 3 reps from EOB, bilateral foot block required. partial stands. Balance Comments: sitting at EOB for several mins with UE support, +dizziness initially, subsided with time, min assist and progressed to SBA for balance; static standing with partial stand, dependent for posterior pericare, max assist x 2 for balance. Pt with flexed posture and difficulty with achieving up right position due to weakness. Exercises Quad Sets: x 10 reps each Gluteal Sets: x 10 reps Hip Abduction: supine x 10 reps each AAROM Ankle Pumps: x 10 reps each G-Code OutComes Score AM-PAC Score [facility] Inpatient Mobility Raw Score : 7 (06/27/21 1505) [facility] Inpatient T-Scale Score : 26.42 (06/27/21 1505) Mobility Inpatient CMS 0-100% Score: 92.36 (06/27/21 1505) Mobility Inpatient CMS G-Code Modifier : CM (06/27/21 1505) Goals Short term goals Time Frame for Short term goals: 2 weeks Short term goal 1: bed mobility min assist.; NOT MET Short term goal 2: transfers mod assist.; NOT MET Short term goal 3: sitting balance goodstatic standing x 2 min with min. assist; NOT MET Short term goal 4: ambulate 15 ft with device, mod assist.; NOT MET Short term goal 5: secretion clearance, IS 1500 ml and HEP independent; PROGRESSING Patient Goals Patient goals : To get stronger. Plan Plan Times per week: 5x/wk Plan weeks: 2 Specific instructions for Next Treatment: functional strength/endurance training. Current Treatment Recommendations: Strengthening, Transfer Training, Balance Training, Gait Training, Functional Mobility Training, Endurance Training Plan Comment: Cont PT POC Safety Devices Type of devices: All fall risk precautions in place, Call light within reach, Patient at risk for falls, Left in bed, Nurse notified, Gait belt Restraints Initially in place: No Therapy Time Individual Concurrent Group Co-treatment Time In 1348 Time Out 1427 Minutes 39 Timed Code Treatment Minutes: 39 Minutes (fax; tp) Senia Gutiérrez PTA * Isaura Hsieh MD - 06/27/2021 9:29 AM EDT Critical Care Progress Note 06/27/2021 9:30 AM Subjective: Admit Date: 06/03/2021 PCP: No primary care provider on file. No chief complaint on file. Interval History: Jesusita England is a morbidly obese 51 year old female with past medical history significant for MIGUEL, anemia, and asthma admitted to ICU on 06/03 due to COVID PNA. She was exposed on 05/26 by her . She completed a course of remdesivir and tocilizumab. She was intubated on 06/04. Throughout her stay she has been found to have CAUTI, MRSA+ VAP, MSSA PNA, and staph hominis bacteremia. She was extubated on 06/18 and transferred to the floors on 7/23. She is currently on aerosols with hypertonic saline, dulera, and mucinex. She was most recently on vancomycin which has been stopped due to change in kidney function and elevated vanc trough. At home she was on a HARMAN for chronic asthma. Today she is on 3L NC satting 96%. Most recent ABG on 06/25 was unremarkable. Pt was seen after PICC line placement. Endorses some shortness of breath and no cough or chest pain. She does complain of a dry congestion in her nose from her NC. 14 points review of systems has been obtained and negative except to was mentioned in HPI. Medications: Scheduled Meds: fluticasone 1 spray Each Nostril Daily lidocaine 1 % injection 5 mL Intradermal Once sodium chloride flush 10 mL Intravenous 2 times per day sodium chloride flush 10 mL Intravenous 2 times per day heparin flush 250 Units Intravenous 2 times per day gabapentin 300 mg Oral Daily guaiFENesin 600 mg Oral BID sodium chloride (Inhalant) 4 mL Nebulization TID bisacodyl 10 mg Rectal Daily cholestyramine 0.5 packet Oral Daily magnesium oxide 400 mg Oral BID mometasone-formoterol 2 puff Inhalation BID pantoprazole 40 mg Oral QAM AC ipratropium-albuterol 1 ampule Inhalation TID sodium hypochlorite Irrigation Daily mineral oil-hydrophilic petrolatum Topical BID collagenase Topical Daily stomahesive in petrolatum Topical BID melatonin 3 mg Oral Nightly sennosides-docusate sodium 2 tablet Oral BID polyethylene glycol 17 g Oral BID miconazole Topical BID Vitamin D 2,000 Units Per G Tube Daily sodium chloride flush 10 mL Intravenous 2 times per day enoxaparin 40 mg Subcutaneous BID sodium chloride flush 5-40 mL Intracatheter Q8H Continuous Infusions: dextrose 100 mL/hr (06/24/210) sodium chloride 25 mL (06/16/21 0928) Objective: Vitals: Temp (24hrs), Av.3 F (36.8 C), Min:98.2 F (36.8 C), Max:98.3 F (36.8 C) BP 108/62 Pulse 77 Temp 98.2 F (36.8 C) (Temporal) Resp 16 Ht 5' 5 (1.651 m) Wt (!) 419 lb 8 oz (190.3 kg) SpO2 96% BMI 69.81 kg/m I/O:24HR INTAKE/OUTPUT: Intake/Output Summary (Last 24 hours) at 06/27/2021 0930 Last data filed at 06/26/2021 1542 Gross per 24 hour Intake Output 975 ml Net -975 ml 06/26 0701 - 06/27 0700 In: 200 [P.O.:200] Out: 975 [Urine:975] CVP: CVP (Mean): 11 mmHg Physical Exam: General appearance - alert, well appearing, obese, and in no distress Mental status - alert, oriented to person, place, and time Eyes - pupils equal and reactive, extraocular eye movements intact Nose - normal and patent, no erythema, discharge or polyps Neck - supple, no significant adenopathy Chest - clear to auscultation, no wheezes, rales or rhonchi, symmetric air entry Heart - normal rate, regular rhythm, normal distant S1, S2, no murmurs, rubs, clicks or gallops Abdomen - soft, nontender, distended, no masses or organomegaly Rectal - deferred, not clinically indicated Neurological - alert, oriented, normal speech, no focal findings or movement disorder noted, motor and sensory grossly normal bilaterally Musculoskeletal - no joint tenderness, deformity or swelling Extremities - bilateral lower extremity edema, peripheral pulses normal, no pedal edema, no clubbing or cyanosis Skin - normal coloration and turgor, no rashes, no suspicious skin lesions noted BMP: Recent Labs 06/25/21222006/25/21222006/26/2145306/27/21 010 NA 126* < > 127* 126* 126* K 4.3 < > 4.1 4.5 4.6 CL 96* < > 95* 96* 96* CO2 22 -- 25 23 21* BUN 43* < > 44* 49* 50* CREATININE 2.46* < > 2.69* 3.20* 3.03* GLUCOSE 194* < > 120* 124* 122* < > = values in this interval not displayed. . M,PHOS:3)@ Ionized Calcium: Lab Results Component Value Date IONCA 3.80 06/24/2021 IONCA 3.90 06/23/2021 CBC: Recent Labs 06/26/21 0454 06/27/21 0101 WBC 6.1 6.1 HGB 9.7* 9.1* PLT 140 168 ABG: No results for input(s): PH, PCO2, PO2 in the last 72 hours. Assessment and Plan: 1. Post COVID/MRSA PNA 2. Radiologic evidence volume overload on most recent CXR 3. 9 days s/p extubation 4. Bacteremia 5. MIRIAM, nephro consulted 6. Morbid obesity, no signs of hypoventilation 7. Nonsmoker Plan: - Continue aerosols with hypertonic saline - Continue mucinex and flonase - Continue acapella - Wean oxygen as able - Continue dulera Associated attestation - Wander Arreguin MD - 06/27/2021 2:43 PM EDT Attending Supervising Physician s Attestation Statement I saw and evaluated the patient. I discussed the findings and plans with resident physician and agree as documented in her note Assessment: 1 acute hypoxic respiratory failure, improving 2 Covid pneumonia 3 MRSA, MSSA pneumonia 4 radiographic volume overload 5 MIRIAM 6 never smoker 7 MIGUEL 8 morbid obesity Plan: 1 wean oxygen 2 okay to continue Dulera and aerosols 3 hypertonic saline inhalation as needed 4 volume management per nephrology; ideally would be diuresed * Horacio Linares DO - 06/27/2021 8:48 AM EDT Images from the original note were not included. Med Team Progress Note Jesusita England : 1970(51 y.o.) Date: June 27, 2021 Med Team: Jennifer Attending: Dr Sellers Chief Complaint: SOB Subjective: - No acute events overnight. - Currently, pt has concerns about her nose. She feels her nose is stuffed up and dry due to the Oxygen and she did not tolerate her AutoPap at night. She is also concerned because she says PT has not seen her in a few days. Review of Systems Constitutional: Negative for chills, fatigue and fever. HENT: Negative for ear pain, hearing loss, sinus pain, sore throat and trouble swallowing. Dry Nose Eyes: Negative for pain and redness. Respiratory: Positive for shortness of breath. Negative for cough and chest tightness. Cardiovascular: Positive for leg swelling. Negative for chest pain and palpitations. Gastrointestinal: Negative for abdominal pain, constipation, diarrhea, nausea and vomiting. Endocrine: Negative for polyphagia and polyuria. Genitourinary: Negative for difficulty urinating, dysuria and urgency. Musculoskeletal: Negative for back pain, joint swelling and neck pain. Skin: Negative for color change and rash. Neurological: Positive for weakness. Negative for dizziness, light-headedness, numbness and headaches. Psychiatric/Behavioral: Negative for agitation and confusion. Scheduled Meds: fluticasone 1 spray Each Nostril Daily lidocaine 1 % injection 5 mL Intradermal Once sodium chloride flush 10 mL Intravenous 2 times per day sodium chloride flush 10 mL Intravenous 2 times per day heparin flush 250 Units Intravenous 2 times per day gabapentin 300 mg Oral Daily guaiFENesin 600 mg Oral BID sodium chloride (Inhalant) 4 mL Nebulization TID bisacodyl 10 mg Rectal Daily cholestyramine 0.5 packet Oral Daily magnesium oxide 400 mg Oral BID mometasone-formoterol 2 puff Inhalation BID pantoprazole 40 mg Oral QAM AC ipratropium-albuterol 1 ampule Inhalation TID sodium hypochlorite Irrigation Daily mineral oil-hydrophilic petrolatum Topical BID collagenase Topical Daily stomahesive in petrolatum Topical BID melatonin 3 mg Oral Nightly sennosides-docusate sodium 2 tablet Oral BID polyethylene glycol 17 g Oral BID miconazole Topical BID Vitamin D 2,000 Units Per G Tube Daily sodium chloride flush 10 mL Intravenous 2 times per day enoxaparin 40 mg Subcutaneous BID sodium chloride flush 5-40 mL Intracatheter Q8H Continuous Infusions: dextrose 100 mL/hr (06/24/212109) sodium chloride 25 mL (06/16/21927) PRN meds used in last 24hrs: NA Objective: BP 108/62 Pulse 77 Temp 98.2 F (36.8 C) (Temporal) Resp 20 Ht 5' 5 (1.651 m) Wt (!) 419 lb 8 oz (190.3 kg) SpO2 98% BMI 69.81 kg/m Physical Exam Constitutional: General: She is not in acute distress. Appearance: She is obese. HENT: Head: Normocephalic and atraumatic. Right Ear: External ear normal. Left Ear: External ear normal. Nose: Nose normal. Mouth/Throat: Mouth: Mucous membranes are moist. Pharynx: Oropharynx is clear. Eyes: General: Right eye: No discharge. Left eye: No discharge. Extraocular Movements: Extraocular movements intact. Pupils: Pupils are equal, round, and reactive to light. Cardiovascular: Rate and Rhythm: Normal rate and regular rhythm. Pulses: Normal pulses. Heart sounds: Normal heart sounds. Comments: Distant Heart sounds Pulmonary: Effort: Pulmonary effort is normal. Breath sounds: No wheezing or rales. Comments: Distant Abdominal: General: Abdomen is flat. There is distension. Palpations: Abdomen is soft. Tenderness: There is no abdominal tenderness. Musculoskeletal: General: Normal range of motion. Cervical back: Normal range of motion and neck supple. No rigidity or tenderness. Right lower leg: Edema present. Left lower leg: Edema present. Skin: General: Skin is warm and dry. Capillary Refill: Capillary refill takes less than 2 seconds. Findings: No bruising or rash. Neurological: General: No focal deficit present. Mental Status: She is alert and oriented to person, place, and time. Sensory: No sensory deficit. Motor: Weakness present. Psychiatric: Mood and Affect: Mood normal. [facility] within last 24 hours Lab Results Component Value Date/Time WBC 6.1 06/27/2021 01:01 AM Hemoglobin 9.1 (L) 06/27/2021 01:01 AM Hematocrit 28.3 (L) 06/27/2021 01:01 AM Platelets 168 06/27/2021 01:01 AM MCV 75.2 (L) 06/27/2021 01:01 AM Lab Results Component Value Date/Time Sodium 126 (L) 06/27/2021 01:01 AM Sodium 126 (L) 06/27/2021 01:01 AM Potassium 4.6 06/27/2021 01:01 AM Potassium 4.5 06/27/2021 01:01 AM Chloride 96 (L) 06/27/2021 01:01 AM Chloride 96 (L) 06/27/2021 01:01 AM CO2 21 (L) 06/27/2021 01:01 AM CO2 23 06/27/2021 01:01 AM BUN 50 (H) 06/27/2021 01:01 AM BUN 49 (H) 06/27/2021 01:01 AM CREATININE 3.03 (H) 06/27/2021 01:01 AM CREATININE 3.20 (H) 06/27/2021 01:01 AM Glucose 122 (H) 06/27/2021 01:01 AM Glucose 124 (H) 06/27/2021 01:01 AM Calcium 8.3 (L) 06/27/2021 01:01 AM Calcium 8.2 (L) 06/27/2021 01:01 AM Magnesium 2.0 06/27/2021 01:01 AM Phosphorus 4.8 (H) 06/27/2021 01:01 AM Assessment and Plan: Acute Respiratory Failure 2/2 COVID PNA + MSSA PNA + Moderate Pulm edema/Effusions - S/p remdesevir/decadron. S/p intubation from 06/04-06/18. - Cont duonebs QID + dulera qd - Pt O2 sat 98% on 3 L - Wean oxygen as able - incentive spirometry to restrenghten lungs and open airway - mucinex, acapella, nebulized hypertonic saline to break up mucous - Flonase for nasal symptoms - Will consider giving dose of steroids for possible post-Covid inflammation - Pulm Consulted MIRIAM 2/2 Lasix, Vancomycin toxicity - sCr 3.20 today, repeat BMP this afternoon - nephrology following, will await recs - retroperitoneal ultrasound: No hydronephrosis, large left kidney, may be normal varient - FEUrea: 28.2% consistent with prerenal MIRIAM - No casts on UA Hypovolemic Hyponatremia - Na 126 today down from 127 - nephrology following, will await recs - Cortisol pending to assess for adrenal insufficiency Hyperphosphatemia 2/2 MIRIAM -Phos 4.8 this AM -Repeat Phos tomorrow -Will place on Renal Diet PIV Issues - Pt currently has PIV in R arm - Will order PICC line today due to difficulty with blood draws and access Debility 2/2 Intubation and ICU admission - PT/OT - work with PT - once able to get standing with assist will use bedside bariatric commode. - patient appears to be highly motivated to increase physical activity - PT recommends LTACH - OT recommends IP rehab - per social work note, insurance denied [facility]; will try snf Anemia with low MCV 2/2 iron deficiency - Iron 27; Sat 10; TIBC 273 indicates iron deficiency anemia - Ferrous sulfate once constipation is resolved - IV iron once pt is not bacteremic VAP 2/2 MRSA + now MSSA again. - completed abx course - Continue to monitor respiratory status. If pt gets a fever, purulent sputum, or other sign of infection will repeat cultures as appropriate Constipation - may be 2/2 questran 4 g. Pt is resistant to hold questran - Senokt PO bid; Glycolax 17 g po bid - daily dulcolex suppository - 1/2 dose of questran - pt had 2 normal sized BMs yesterday, will continue to monitor Staph Hominis Bacteremia likely 2/2 CVC related - s/p removed line. - Abx completed, will continue to monitor E.Coli UTI (UCx 06/16: PanSn UTI s/p Cefepime Tx) - replaced urethral galeano with urethral Pure Wick external cath Dysphagia/ Post extubation dysphagia - [employer] therapy following - Protonix 40 mg po qd if it is GERD related dysphagia, but likely post intubation dysphagia B/l Stasis Dermatitis, Wounds - aquaphor ointment bid apply to b/l LE and feet - wound care Right [place] Stage 3 pressure injury Lower back unstageable pressure injury -Wound care following -Will follow wound care recs for care Morbid Obesity with probable obesity hypoventilation syndrome - f/u outpatient with pulmonology MIGUEL Asthma - palliative following, appreciate input - dulera PO + duonebs qid Peripheral Neuropathy - gabapentin 300 mg TID Sepsis 2/2 above (resolved) Rising Alk Phos (resolved) - Goals of Care: FULL CODE - DVT Prophylaxis: lovenox 40 q24h - creatinine clearance > 30 - GI Prophylaxis: Protonix daily - Diet: General Associated attestation - Shashank Sellers MD - 06/27/2021 5:05 PM EDT I have discussed the care of Jesusita England with the medical student and/or resident. I have personally taken a history, examined the patient, and performed the associated medical decision making activities. I have reviewed & verified the attested documentation. Unless otherwise noted below, this documentation reflects the history, physical exam, and medical decision making that I performed myself. Please see note for my personal highlights or additions in Green. Patient seen and examined personally at 0900 (Date of Service: 06/27/21) Roach Changes to Care Plan: - inc flonase given some nasal congestion that patient attributes to oxygen via NC. - oxygenation improving. Wean down O2 today. Resp therapy had down to 2L from 5L Overall improving day by day. Dealing with MIRIAM currently with help of nephrology. Pulm consulted tosee if any other mngt we should be doing post- covid. Patient may need oxygen upon home-going for some time if unable to wean. I truly appreciate all the care, mgnt, & recommendations given by consultants and care team. Pager: [phone] I spent over 51% total time of 43 minutes counseling (or coordinating care). Discussed current planof care with patient. Coordinated care with resident team. Also discussed with respiratory therapy. * Amie Chaidez, [employer] - 06/26/2021 3:50 PM EDT Speech Language Pathology Facility/Department: [facility] Dysphagia Daily Treatment Note NAME: Jesusita England : 1970 Patient Diagnosis(es): Patient Active Problem List Diagnosis Date Noted Pressure injury of right buttock, stage 3 (HCC) Insomnia Constipation Gastroesophageal reflux disease without esophagitis Angular cheilitis COVID-19 Anxiety Palliative care encounter Pneumonia due to COVID-19 virus 06/03/2021 Allergies: No Known Allergies Onset Date: 06/03/2021 Current Diet Level: Regular/thin Pain: being managed by RN. Diet Tolerance: Patient tolerating current diet level with no overt signs/symptoms of penetration/aspiration. P.O. Trials: Thin Single and sequential straw sips [place] NA Honey NA Puree NA Solid Fredrick cracker pieces Impressions: Patient presents with essentially normal swallowing function. Due to difficulty with respiration, patient takes an increased amount of time to coordination mastication with breath. However, patient understands food choices that will assist her in safety swallowing and continuing with a regular diet. No delay in the swallow with liqud presentations. No change in vocal quality noted following all PO trials. Patient continues to produce voice with dysphonic quality. However, vocal quality prior to PO trials remained the same following all PO trials. Vocal quality judged to be a result of extended intubation period d/t no overt s/s of aspiration. Per ENT notes, Discussed with the patient that her hoarseness is due to edema from the 14 day intubation as well as deconditioning from her prolonged intubation. Her voice will likely get better however it will take some time. Oral Motor / Bolus Control: WFL, no concerns noted at bedside. DPNS / Sensory-Motor: WFL, no concerns noted at bedside. Patient/Family/Caregiver Education: Educated patient and daughter on reflux precautions such as acidic foods, positioning while eating,increasing water intake, and few big meals vs. smaller more frequent meals. Patient participated fully in conversation both in answering and asking questions. Paper resource provided to patient. Compensatory Strategies: Patient to sit up right during and after meals and to take small bites and sips to allow coordination of respiration and swallow, Plan: Discontinue from speech therapy services d/t no overt s/s of aspiration at the bedside. Time in: 15:20 Time out: 15:40 Amie Chaidez MA, CCC-[employer] * Monae Huang, DO - 06/26/2021 8:35 AM EDT Images from the original note were not included. Med Team Progress Note Jesusita England : 1970(51 y.o.) Date: June 26, 2021 Med Team: Jennifer Attending: Dr. Sellers Chief Complaint: SOB Subjective: - Overnight, Ms. England had an episode of tachypnea which the night team was paged for. She complained of generalized fatigue and intermittent increased SOB. A CXR and ABG were checked. The CXR demonstrated interstitial edema c/o volume overload. Overnight pulse ox and 40 mg of IV lasix were ordered. - Currently, Ms. England is resting in bed. She states that she is currently not feeling too much SOB.She states that she continues to feel like she has congestion in her chest which she is unable to cough out. She denies any chest pain or palpitations currently but stated that she was having some chest pain yesterday that she describes as a 1-2/10. Review of Systems Constitutional: Negative for appetite change, chills, diaphoresis, fatigue and fever. Respiratory: Positive for cough (nonproductive) and shortness of breath. Negative for wheezing. Cardiovascular: Positive for leg swelling. Negative for chest pain and palpitations. Gastrointestinal: Negative for abdominal pain, constipation, diarrhea, nausea and vomiting. Genitourinary: Negative for difficulty urinating, dysuria and hematuria. Skin: Positive for wound. Neurological: Positive for weakness. Negative for dizziness, numbness and headaches. Scheduled Meds: guaiFENesin 600 mg Oral BID sodium chloride (Inhalant) 4 mL Nebulization TID bisacodyl 10 mg Rectal Daily cholestyramine 0.5 packet Oral Daily magnesium oxide 400 mg Oral BID gabapentin 300 mg Oral TID mometasone-formoterol 2 puff Inhalation BID pantoprazole 40 mg Oral QAM AC ipratropium-albuterol 1 ampule Inhalation TID sodium hypochlorite Irrigation Daily mineral oil-hydrophilic petrolatum Topical BID collagenase Topical Daily stomahesive in petrolatum Topical BID melatonin 3 mg Oral Nightly sennosides-docusate sodium 2 tablet Oral BID polyethylene glycol 17 g Oral BID miconazole Topical BID Vitamin D 2,000 Units Per G Tube Daily sodium chloride flush 10 mL Intravenous 2 times per day enoxaparin 40 mg Subcutaneous BID sodium chloride flush 5-40 mL Intracatheter Q8H Continuous Infusions: dextrose 100 mL/hr (06/24/212109) sodium chloride 25 mL (06/16/21 0928) PRN meds used in last 24hrs: Acetaminophen 650 mg x2 doses; Hydroxyzine 25 mg x2 doses; Milk of Magnesia; Sodium chloride nebulizer Objective: BP 111/80 Pulse 96 Temp 96.5 F (35.8 C) (Temporal) Resp 19 Ht 5' 5 (1.651 m) Wt (!) 419 lb 8 oz (190.3 kg) SpO2 99% BMI 69.81 kg/m Physical Exam Vitals reviewed. Constitutional: General: She is not in acute distress. Appearance: She is not ill-appearing. HENT: Head: Normocephalic and atraumatic. Cardiovascular: Rate and Rhythm: Normal rate and regular rhythm. Pulses: Normal pulses. Heart sounds: Normal heart sounds. No murmur heard. No friction rub. Pulmonary: Effort: No respiratory distress. Breath sounds: No wheezing, rhonchi or rales. Comments: On 5L nasal cannula; able to hold conversation Abdominal: General: There is no distension. Palpations: Abdomen is soft. Tenderness: There is no abdominal tenderness. There is no guarding or rebound. Musculoskeletal: Right lower leg: Edema present. Left lower leg: Edema present. Skin: General: Skin is warm and dry. Findings: Lesion (lesion on lower back not visualized due to patient's difficulty moving) present. Neurological: Mental Status: She is alert. Motor: Weakness (LE more than UE) present. [facility] within last 24 hours Lab Results Component Value Date/Time WBC 6.1 06/26/2021 04:54 AM Hemoglobin 9.7 (L) 06/26/2021 04:54 AM Hematocrit 30.3 (L) 06/26/2021 04:54 AM Platelets 140 06/26/2021 04:54 AM MCV 75.0 (L) 06/26/2021 04:54 AM Lab Results Component Value Date/Time Sodium 127 (L) 06/26/2021 04:54 AM Potassium 4.1 06/26/2021 04:54 AM Chloride 95 (L) 06/26/2021 04:54 AM CO2 25 06/26/2021 04:54 AM BUN 44 (H) 06/26/2021 04:54 AM CREATININE 2.69 (H) 06/26/2021 04:54 AM CREATININE 2.46 (H) 06/25/2021 10:21 PM CREATININE 2.25 (H) 06/25/2021 02:05 PM Glucose 120 (H) 06/26/2021 04:54 AM Calcium 8.4 06/26/2021 04:54 AM Magnesium 1.9 06/25/2021 10:21 PM Phosphorus 3.8 06/25/2021 10:21 PM Lab Results Component Value Date/Time AST 31 06/25/2021 10:21 PM ALT 42 (H) 06/25/2021 10:21 PM Total Protein 5.7 (L) 06/25/2021 10:21 PM Albumin,Serum 2.7 (L) 06/25/2021 10:21 PM Total Bilirubin 0.4 06/25/2021 10:21 PM Alkaline Phosphatase 111 06/25/2021 10:21 PM Lab Results Component Value Date/Time Vancomycin Tr 58.2 (H) 06/26/2021 01:18 AM CXR 06/25 Findings: Frontal portable chest view shows diminished lung volume with diffuse bilateral interstitial edema/infiltrates, significantly increased compared to last exam. The heart is borderline enlarged. Small left pleural effusion could not be excluded. There is no mediastinal widening or other significant interval change. Assessment and Plan: Acute Respiratory Failure 2/2 COVID PNA + MSSA PNA + Moderate Pulm edema/Effusions - S/p remdesevir/decadron. S/p intubation from 06/04-06/18. - Cont duonebs QID + dulera qd - respiratory attempted to wean pt to 4L 03/25, pt experienced increased SOB, O2 increased back to 5L - Wean oxygen as able - incentive spirometry to restrenghten lungs and open airway - lasix dc'ed 06/23 due to MIRIAM, received 40 mg IV on 06/25 PM due to interstitial edema/infiltrates seen on CXR 06/25 - acapella - mucinex and nebulized hypertonic saline to break up mucous Issues with Line - PICC line issues MIRAIM 2/2 likely due to Lasix, Vancomycin trough too high - worsening - sCr 06/26 2.69 - dc IV lasix 40 mg bid on 06/23 due to concern for MIRIAM, received 40 mg IV 06/25 PM - continue to follow kidney fxn; f/u on sCr, BUN - nephrology consult - retroperitoneal ultrasound ordered - 1.5 L bolus LR given 06/25 Hypovolemic Hyponatremia - 127 06/26 (125 06/25) - nephrology consult - retroperitoneal ultrasound ordered - 1.5 L bolus LR given 06/25 - repeat urine studies Debility 2/2 Intubation and ICU admission - PT/OT - work with PT - once able to get standing with assist will use bedside bariatric commode. - patient appears to be highly motivated to increase physical activity - PT recommends LTACH - OT recommends IP rehab - per social work note, insurance denied [facility]; will try snf Anemia with low MCV 2/2 iron deficiency - Iron 27; Sat 10; TIBC 273 indicates iron deficiency anemia - Ferrous sulfate once constipation is resolved - IV iron once pt is not bacteremic VAP 2/2 MRSA + now MSSA again. - (OSH SCx 06/02/21: MSSA. SCx 06/12: normal pretty; SCx: 06/15: MRSA - on linezolid till 06/18; SCx 06/19: -MSSA - on vancomycin now per ID). - Culture Sensitivities from 06/19 for respiratory culture - pansensitive, negative for inducible clindamycin resistance - continue Vanc for staph hominis bacteremia end date 06/26 per ID Constipation - may be 2/2 questran 4 g. Pt is resistant to hold questran - Senokt PO bid; Glycolax 17 g po bid - daily dulcolex suppository - 1/2 dose of questran - patient had a good BM on 06/24, continue bowel regimen to prevent further constipation Staph Hominis Bacteremia likely 2/2 CVC related - s/p removed line. - Currently on vancomycin through 06/26/21 per ID. E.Coli UTI (UCx 06/16: PanSn UTI s/p Cefepime Tx) - replaced urethral galeano with urethral Pure Wick external cath Rising Alk Phos (resolved) - 78--> 101 --> 149 -> 127 (06/22) -> 116 (06/23)-> 112 (06/24) -> 111 (06/25) - continues to downtrend, monitor Dysphagia/ Post extubation dysphagia - [employer] therapy following - Protonix 40 mg po qd if it is GERD related dysphagia, but likely post intubation dysphagia B/l Stasis Dermatitis, Wounds - aquaphor ointment bid apply to b/l LE and feet - wound care Morbid Obesity MIGUEL Asthma - palliative following, appreciate input - dulera PO + duonebs qid Peripheral Neuropathy - gabapentin 300 mg TID Sepsis 2/2 above (resolved) - Goals of Care: FULL CODE - DVT Prophylaxis: lovenox 40 mg BID - GI Prophylaxis: Protonix daily - Diet: General Associated attestation - Shashank Sellers MD - 06/26/2021 12:21 PM EDT I have discussed the care of Jesusita England with the medical student and/or resident. I have personally taken a history, examined the patient, and performed the associated medical decision making activities. I have reviewed & verified the attested documentation. Unless otherwise noted below, this documentation reflects the history, physical exam, and medical decision making that I performed myself. Please see note for my personal highlights or additions in Green. Patient seen and examined personally at 0850 (Date of Service: 06/26/21) Roach Changes to Care Plan: - Cr continues to rise. Vanc trough high. Stop vanc. Na slightly improved with some fluids yesterday. - Patient on IV lasix BID for some time to help with pulmonary congestion. When Cr increased from 0.6 to 0.9, lasix was held. Since holding, Cr has gone up and sodium has gone down. Two days after holding lasix, urine studies concerning for hypovolemiic hyponatremia (UOsm >100, Lino <5). Na slightly improved yesterday with some IV Bolus. Some subjective dyspnea last night but oxygenation remained stable as it has been since leaving ICU. Did get IV lasix from night team for some increased infiltrates on CXR diffusely along with tachypnea. CO2 on ABG and O2 on SpO2/ABG were WNL. ? If anxiety component as well. - consult nephrology, repeat urine studies. Appreciate input. - called daughter - Maggie at [phone]. Good conversation. Updated her per patient's request on kidney status and current plans. She is appreciative of care. She is asking that I do a [id number] for Rehab from insurance as rehabilitation technician (cody Serarno) thinks they can help her a lot. I will reach out to [facility] to help start that process. Patient currently not ready for discharge given rising Cr and hyponatremia still in workup process. - SpO2 100% last night and 99% today on 5L. Need to wean oxygen down to determine what her actual needs are. Pager: [phone] I spent over 51% total time of 58 minutes counseling (or coordinating care). Discussed current planof care with patient. Coordinated care with resident team. Also d/w sister (Maggie) as stated above. * Willie Andrade MD - 06/25/2021 7:48 PM EDT S: Paged regarding tachypnea. Pt here for COVID pna with superimposed MRSA and MSSA pna. Previouslywith pulmonary edema and was receiving lasix, lasix stopped 06/23, received 2L LR today with concernfor MIRIAM and hyponatremia. Pt's primary complaint is generalized fatigue. On further questioning, she notes she's intermittently felt increasing SOB since being transferred out of ICU. Currently feels like she has to 'work hard to push air out.' No confusion, no chest pain, no other complaints at this time. O: RR 26-28. O2 sat 95% on 5L NC (stable throughout her stay on the floor, no increased O2 requirements). HR 85-90. Afebrile. She is somewhat tachypneic but in NAD, A&Ox4, able to participate in interview. Scatter rhonchi, no wheezing, good air movement. LE swelling bilaterally chronic per patient. No obvious JVD though difficult exam. A/P: 51yo F admitted with COVID pna and superimposed MRSA + MSSA pna. She has been intermittently tachypneic throughout stay. Current sxs most likely due to persistent pna +/- post-covid inflammation. Possible component of anxiety contributing, PRNs ordered. Possible element of volume overload withIVF resuscitation today though not obvious on exam. Cannot R/O PE at this time though less likely, D-dimer of little utility at this point and would avoid CTA with renal function. For now will check CXR and ABG and proceed from there. Stable for GMF and monitor. ADDENDUM: CXR with interstitial edema, c/o volume overload. On my assessment, pt with nasal cpap, feels a little better than earlier, tachypnea improved. Still reports mild SOB. Appears comfortable, NAD, conversing appropriately. Will order overnight pulse ox, give 40mg IV lasix x1 and monitor. Discussed with nursing. Will f/u on scheduled BMP when it returns. * Dilcia Rosado RN - 06/25/2021 5:32 PM EDT Rapid placed IV in patient's left arm. Ten minutes later, IV was out of patient's arm. * Tori Milton RD, LD - 06/25/2021 2:32 PM EDT Comprehensive Nutrition Assessment Type and Reason for Visit: Reassess Nutrition Recommendations/Plan: 1. Recommend continue on diet as currently ordered, patient is receiving a Regular Diet. Given weight status can consider CHO Controlled Diet restrictions to aide in promoting healthy weight loss, monitor renal function and edema and need for Low Sodium restrictions as well. 2. Will continue to monitor PO intake for adequacy 3. Pt with noted stage 2 pressure wound to sacrum and right buttock with unstageable wound to lowerback- encourage lean protein intake to promote wound healing and consider daily MVI + Vitamin C to aide in wound healing. 4. Will continue to monitor weight changes, labs and overall nutrition status 5. RD will continue to follow up weekly Nutrition Assessment: pt transferred out of the ICU on 06/20, pt remains ordered a Regular Diet, SLPis following due to prolonged intubation (06/04-06/18) and is recommending regular/thin liquids, pt appetite has been good and she is tolerating meals but complains of feeling very weak, SW following for placement at [facility] as pt was denied by TCU due to weight status, pt weight during admit has remained stable, pt does complain of having a sore throat with some foods causing more discomfort than others due to intubation status, pt also with issues regarding constipation- noted lastBM 06/22, will monitor Malnutrition Assessment: Malnutrition Status: At risk for malnutrition (Comment) (pt extubated and tolerating oral diet without issues, [employer] following- regular/thin liquids recommendations, pt weight has remained stable during admit, no significant physical signs) Nutrition Related Findings: [place] = 15, sacrum and right buttock stage 2, lower back unstageable, -I/O, active bowel sounds, BM 06/22- constipation, generalized trace and BLE +2 edema Wounds: Pressure Injury, Stage II, Unstageable Current Nutrition Therapies: ADULT DIET; Regular Anthropometric Measures: Height: 5' 5 (165.1 cm) Current Body Weight: 419 lb (190.1 kg) (06/25) Admission Body Weight: 418 lb (189.6 kg) (no method 06/03) Usual Body Weight: 418 lb (189.6 kg) (05/31/20 per EPIC) [place] Body Weight: 125 lbs; % [place] Body Weight 335.2 % BMI: 69.7 Adjusted Body Weight: ; No Adjustment BMI Categories: Obese Class 3 (BMI 40.0 or greater) Nutrition Interventions: Food and/or Nutrient Delivery: Modify Current Diet Nutrition Education/Counseling: Education not appropriate (briefly discussed with pt portion control but as pt just extubated yesterday after being on the vent 2 weeks extensive education deferred until pt is more stable and tolerating oral intake) Coordination of Nutrition Care: Continue to monitor while inpatient Goals: PO intake will be >50% at meals Nutrition Monitoring and Evaluation: Behavioral-Environmental Outcomes: None Identified Food/Nutrient Intake Outcomes: Food and Nutrient Intake Physical Signs/Symptoms Outcomes: Biochemical Data, Chewing or Swallowing, GI Status, Constipation,Fluid Status or Edema, Weight, Skin, Nutrition Focused Physical Findings Discharge Planning: Too soon to determine Contact: pager [phone] or Perfect[employer] * Monae Huang DO - 06/25/2021 8:10 AM EDT Images from the original note were not included. Med Team Progress Note Jesusita England : 1970(51 y.o.) Date: June 25, 2021 Med Team: Jennifer Attending: Dr. Sellers Chief Complaint: SOB Subjective: - No acute events overnight. - Currently, Ms. England is resting comfortably in bed. She is more hoarse than yesterday and says that she is having a bit of a sore throat. She states that her SOB is improved and would like to attempt to have her O2 weaned down. She states that she had a good BM yesterday and denies abdominal pain.She states that she has a good appetite and denies n/v. She states that PT saw her yesterday and was able to sit her on the side of the bed twice although she was unable to stand. She continues to feel weak, especially in her lower extremities. Review of Systems Constitutional: Negative for appetite change, chills, diaphoresis and fever. Respiratory: Positive for cough (not productive), shortness of breath and wheezing. Negative for choking. Cardiovascular: Positive for leg swelling (chronic issue). Negative for chest pain and palpitations. Gastrointestinal: Negative for abdominal pain, constipation, diarrhea, nausea and vomiting. Musculoskeletal: Positive for myalgias. Skin: Positive for wound (on right lower back). Neurological: Positive for weakness (LE more than UE) and headaches (began this morning). Negative for dizziness, syncope, light-headedness and numbness. Scheduled Meds: lactated ringers bolus 500 mL Intravenous Once bisacodyl 10 mg Rectal Daily cholestyramine 0.5 packet Oral Daily magnesium oxide 400 mg Oral BID gabapentin 300 mg Oral TID mometasone-formoterol 2 puff Inhalation BID pantoprazole 40 mg Oral QAM AC ipratropium-albuterol 1 ampule Inhalation TID sodium hypochlorite Irrigation Daily mineral oil-hydrophilic petrolatum Topical BID collagenase Topical Daily stomahesive in petrolatum Topical BID melatonin 3 mg Oral Nightly vancomycin 2,000 mg Intravenous Q12H sennosides-docusate sodium 2 tablet Oral BID polyethylene glycol 17 g Oral BID miconazole Topical BID Vitamin D 2,000 Units Per G Tube Daily sodium chloride flush 10 mL Intravenous 2 times per day enoxaparin 40 mg Subcutaneous BID sodium chloride flush 5-40 mL Intracatheter Q8H Continuous Infusions: dextrose 100 mL/hr (06/24/212109) sodium chloride 25 mL (06/16/21927) PRN meds used in last 24hrs: Dextrose 5% solution for low blood sugar; Duoneb 1 ampule Objective: BP 104/66 Pulse 89 Temp 98 F (36.7 C) (Temporal) Resp 16 Ht 5' 5 (1.651 m) Wt (!) 419 lb8 oz (190.3 kg) SpO2 97% BMI 69.81 kg/m Physical Exam Vitals reviewed. Constitutional: General: She is not in acute distress. Appearance: She is obese. She is not ill-appearing. HENT: Head: Normocephalic and atraumatic. Cardiovascular: Rate and Rhythm: Normal rate and regular rhythm. Pulses: Normal pulses. Heart sounds: No murmur heard. No friction rub. No gallop. Pulmonary: Effort: No respiratory distress. Breath sounds: No wheezing or rhonchi. Abdominal: General: There is no distension. Palpations: Abdomen is soft. Tenderness: There is no abdominal tenderness. There is no guarding or rebound. Musculoskeletal: General: No tenderness. Right lower leg: Edema present. Left lower leg: Edema present. Skin: General: Skin is warm and dry. Findings: Lesion (not visualized due to patient mobility issues) present. Neurological: Mental Status: She is alert. Motor: Weakness (LE extremitiy weakness. No weakness noted in UE) present. [facility] within last 24 hours Lab Results Component Value Date/Time WBC 7.2 06/25/2021 03:49 AM Hemoglobin 10.7 (L) 06/25/2021 03:49 AM Hematocrit 33.6 (L) 06/25/2021 03:49 AM Platelets 155 06/25/2021 03:49 AM MCV 74.9 (L) 06/25/2021 03:49 AM Lab Results Component Value Date/Time Sodium 125 (L) 06/25/2021 03:49 AM Potassium 4.2 06/25/2021 03:49 AM Chloride 96 (L) 06/25/2021 03:49 AM CO2 20 (L) 06/25/2021 03:49 AM BUN 37 (H) 06/25/2021 03:49 AM CREATININE 1.98 (H) 06/25/2021 03:49 AM Glucose 129 (H) 06/25/2021 03:49 AM Calcium 8.7 06/25/2021 03:49 AM Magnesium 2.1 06/25/2021 03:49 AM Phosphorus 4.0 06/25/2021 03:49 AM Assessment and Plan: Acute Respiratory Failure 2/2 COVID PNA + MSSA PNA + Moderate Pulm edema/Effusions- improving. - S/p remdesevir/decadron. S/p intubation from 06/04-06/18. - Cont duonebs QID + dulera qd (required an extra dose of duonebs 06/24) - respiratory attempted to wean pt to 4L 03/25, pt experienced increased SOB, O2 increased back to 5L - Wean oxygen as able; currently on 5 L O2 nasal canula sating 97% - patient expresses interest in weaning oxygen - incentive spirometry to restrenghten lungs and open airway - lasix dc'ed 06/23 due to MIRIAM - acapella - mucinex - nebulized hypertonic saline Debility 2/2 Intubation and ICU admission - PT/OT - work with PT - once able to get standing with assist will use bedside bariatric commode. - patient appears to be highly motivated to increase physical activity - PT recommends LTACH - OT recommends IP rehab - per social work note, [facility] will accept pt (pending insurance approval) MIRIAM 2/2 likely due to Lasix - sCr 06/25 1.98; BUN 37 - dc IV lasix 40 mg bid on 06/23 due to concern for MIRIAM - continue to follow kidney fxn; f/u on sCr, BUN\ - lactated ringers bolus 500 mg given - PM BMP Anemia with low MCV 2/2 iron deficiency - Iron 27; Sat 10; TIBC 273 indicates iron deficiency anemia - Ferrous sulfate once constipation is resolved - IV iron once pt is not bacteremic VAP 2/2 MRSA + now MSSA again. - (OSH SCx 06/02/21: MSSA. SCx 06/12: normal pretty; SCx: 06/15: MRSA - on linezolid till 06/18; SCx 06/19: -MSSA - on vancomycin now per ID). - Culture Sensitivities from 06/19 for respiratory culture - pansensitive, negative for inducible clindamycin resistance - continue Vanc for staph hominis bacteremia end date 06/26 per ID Hyponatremia - downtrending - today, 125 (131 on 06/24) - urine osmolality 165; sodium <5 - lactated ringers bolus 500 mg given - asymptomatic this morning - monitor BMP Constipation - may be 2/2 questran 4 g. Pt is resistant to hold questran - Senokt PO bid; Glycolax 17 g po bid - daily dulcolex suppository - 1/2 dose of questran - patient had a good BM on 06/24, continue bowel regimen to prevent further constipation Staph Hominis Bacteremia likely 2/2 CVC related - s/p removed line. - Currently on vancomycin through 06/26/21 per ID. E.Coli UTI (UCx 06/16: PanSn UTI s/p Cefepime Tx) - replaced urethral galeano with urethral Pure Wick external cath Rising Alk Phos - 78--> 101 --> 149 -> 127 (06/22) -> 116 (06/23)-> 112 (06/24) - continues to downtrend, monitor Dysphagia/ Post extubation dysphagia - [employer] therapy following - Protonix 40 mg po qd if it is GERD related dysphagia, but likely post intubation dysphagia B/l Stasis Dermatitis, Wounds - aquaphor ointment bid apply to b/l LE and feet - wound care Morbid Obesity MIGUEL Asthma - palliative following, appreciate input - dulera PO + duonebs qid Peripheral Neuropathy - gabapentin 300 mg TID Sepsis 2/2 above (resolved) - Goals of Care: FULL CODE - DVT Prophylaxis: lovenox 40 mg BID - GI Prophylaxis: Protonix daily - Diet: General Associated attestation - Shashank Sellers MD - 06/25/2021 4:51 PM EDT I have discussed the care of Jesusita England with the medical student and/or resident. I have personally taken a history, examined the patient, and performed the associated medical decision making activities. I have reviewed & verified the attested documentation. Unless otherwise noted below, this documentation reflects the history, physical exam, and medical decision making that I performed myself. Please see note for my personal highlights or additions in Green. Patient seen and examined personally at 0817 (Date of Service: 06/25/21) [place] Changes to Care Plan: - ENT consult for prolonged dysphonia. - Urine studies consistent with Hypovolemic Hyponatremia with possible component of low solute given malnutrition. Serum sodium continues to fall. Gave 500cc IV Bolus this morning. Cr rising now to 2.25. Give another 1L bolus now. Repeat BMP 8pm tonight. If Labs not improving by morning, consult nephro, obtain renal ultrasound, repeat urine studies (could miss SIADH if low sodium intake could misleadingly show Na<5). - respiratory status improving. Pager: [phone] I spent over 51% total time of 27 minutes counseling (or coordinating care). Discussed current planof care with patient. Coordinated care with resident team. * Khai Curtis, JUICE WEIGHER - 06/24/2021 3:12 PM EDT Physical Therapy Facility/Department[facility] Daily Treatment Note NAME: Jesusita England : 1970 Date of Service: 06/24/2021 Discharge Recommendations: LTACH PT Equipment Recommendations Equipment Needed: No Other: tbd Assessment Body structures, Functions, Activity limitations: Decreased functional mobility ;Decreased ADL status;Decreased strength;Decreased balance;Decreased endurance Assessment: Pt had just finsihed standing trails w/ OT upon JUICE WEIGHER arrival today, but agreeable to learning HEP Ex to do on own between PT Rx. Pt able to complete all BLE ther ex w/ no c/o increased pain today. Pt able to use flat sheet minimally for self-assisted ROM Ex. Pt would benefit from ongoingFacility based therapy post Disch. Specific instructions for Next Treatment: functional strength/endurance training. Prognosis: Fair Decision Making: Medium Complexity REQUIRES PT FOLLOW UP: Yes Activity Tolerance Activity Tolerance: Patient limited by fatigue;Patient limited by endurance Patient Diagnosis(es): The encounter diagnosis was Pressure injury of right buttock, stage 3 (HCC). has a past medical history of Allergic rhinitis, Anemia, Chronic diarrhea, GERD (gastroesophageal reflux disease), Joint pain, Morbid obesity (HCC), and MIGUEL (obstructive sleep apnea). has a past surgical history that includes Cholecystectomy; hip surgery; and Heel spur surgery. Restrictions Restrictions/Precautions Restrictions/Precautions: Fall Risk Required Braces or Orthoses?: No Position Activity Restriction Other position/activity restrictions: COVID 19- off isolation; [facility] bed; 5LO2 NC; Subjective General Chart Reviewed: Yes Response To Previous Treatment: Patient with no complaints from previous session. Subjective Subjective: Pt just getting laid down in bed w/ OT upon JUICE WEIGHER arrival. Pt agreeable to PT. nsg cleared pt for PT. Pt is SEE TODAY per [facility] General Comment Comments: JUICE WEIGHER wore N95 mask, gloves during PT Rx. Pain Screening Patient Currently in Pain: No (Pt had no c/o pain pre or post PT Rx.) Pain Assessment Clinical Progression: Not changed Vital Signs Patient Currently in Pain: No (Pt had no c/o pain pre or post PT Rx.) Orientation Orientation Overall Orientation Status: Within Normal Limits Cognition Objective Bed mobility Bridging: Maximum assistance;2 Person assistance (to HOB; x3 rep total; x2 before OT left and x1 after PT Rx.) Rolling to Left: Moderate assistance;2 Person assistance Rolling to Right: Moderate assistance;2 Person assistance Supine to Sit: Unable to assess Sit to Supine: Unable to assess Scooting: Moderate assistance (lateral scooting in bed) Comment: HOB flat for bridging x2 rep w/ cues for LLE and BUE self assist. Pt able to roll and holdrail to each side for slide sheet adjustment. Transfers Comment: NT- Pt just stood x2 for OT eval. Ambulation Ambulation?: No Stairs/Curb Stairs?: No Exercises Straight Leg Raise: x8 rep ea LE AAROM Quad Sets: x8 rep w/ 3sec hold Heelslides: x12 rep ea LE AAROM Gluteal Sets: x8 rep w/ 3sec hold. Hip Extension/Leg Presses: x5 rep ea LE w/ light manual resist in extn. Hip Abduction: x10 rep ea LE AAROM Knee Short Arc Quad: x8 rep ea LE w/ bolster; 15->0deg Ankle Pumps: x20 rep BLE Core Strengthening: abdominal draw-in maneuvar x5 rep w/ counting 0-5 Comments: Pt encouraged to perform setting Ex on own during day; pt educated how to use flat sheet for self assist ROM G-Code OutComes Score AM-PAC Score AM-PAC Inpatient Mobility Raw Score : 7 (06/24/211511) AM-PAC Inpatient T-Scale Score : 26.42 (06/24/211511) Mobility Inpatient CMS 0-100% Score: 92.36 (06/24/211511) Mobility Inpatient CMS G-Code Modifier : CM (07/26/21 1512) Goals Short term goals Time Frame for Short term goals: 2 weeks Short term goal 1: bed mobility min assist.; NOT MET Short term goal 2: transfers mod assist.; NOT MET Short term goal 3: sitting balance goodstatic standing x 2 min with min. assist; NOT MET Short term goal 4: ambulate 15 ft with device, mod assist.; NOT MET Short term goal 5: secretion clearance, IS 1500 ml and HEP independent; PROGRESSING Patient Goals Patient goals : To get stronger. Plan Plan Times per week: 5x/wk Plan weeks: 2 Specific instructions for Next Treatment: functional strength/endurance training. Current Treatment Recommendations: Strengthening, Transfer Training, Balance Training, Gait Training, Functional Mobility Training, Endurance Training Plan Comment: Cont PT POC Safety Devices Type of devices: All fall risk precautions in place, Call light within reach, Patient at risk for falls, Left in bed, Nurse notified Restraints Initially in place: No Therapy Time Individual Concurrent Group Co-treatment Time In 1430 Time Out 1500 Minutes 30 Timed Code Treatment Minutes: 30 Minutes (FA x1; TP x1) Khai Curtis PTA * Anitra Patel, OT - 06/24/2021 2:54 PM EDT Occupational Therapy Occupational Therapy Initial Assessment Date: 06/24/2021 Patient Name: Jesusita England : 1970 Date of Service: 06/24/2021 Discharge Recommendations: IP Rehab Assessment Performance deficits / Impairments: Decreased functional mobility ;Decreased endurance;Decreased coordination;Decreased posture;Decreased ADL status;Decreased balance;Decreased strength;Decreased high-level IADLs Assessment: Pt presents with the above deficits and requires mod assist with bed mobility, max assist x 1 plus mod assist x 1 to stand, and max assist with ADL's. Pt is making much progress since last session and is highly motivated. Pt would benefit from continued therapies to maximize potential. Recommend REHAB level therapies at discharge. Prognosis: Good Decision Making: Medium Complexity REQUIRES OT FOLLOW UP: Yes Activity Tolerance Activity Tolerance: Patient limited by fatigue;Patient Tolerated treatment well Safety Devices Safety Devices in place: Yes Type of devices: All fall risk precautions in place;Call light within reach;Patient at risk for falls;Gait belt;Left in bed Restraints Initially in place: No Patient Diagnosis(es): The encounter diagnosis was Pressure injury of right buttock, stage 3 (HCC). has a past medical history of Allergic rhinitis, Anemia, Chronic diarrhea, GERD (gastroesophageal reflux disease), Joint pain, Morbid obesity (HCC), and MIGUEL (obstructive sleep apnea). has a past surgical history that includes Cholecystectomy; hip surgery; and Heel spur surgery. Restrictions Restrictions/Precautions Restrictions/Precautions: Fall Risk Required Braces or Orthoses?: No Position Activity Restriction Other position/activity restrictions: COVID 19- off isolation. Subjective General Chart Reviewed: Yes Patient assessed for rehabilitation services?: Yes Family / Caregiver Present: Yes (Pt's daughter arrived, Sisi, from [facility]) Diagnosis: Pneumonia due to COVID-19 Subjective Subjective: Pt in bed. Agreeable to OT. On O2 NC. General Comment Comments: Pt presents as exposed by with COVID-19. Pt diagnosed on 06.02.21. 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 Share cooking, cleaning, & laundry (1st floor). Indep with driving. Amb with indep, however, required use of a rollator the week before being diagnosed and coming to the hospital. Objective Orientation Overall Orientation Status: Within Functional Limits (Ox3) Balance Sitting Balance: (fair + Static sitting balance at EOB with right UE support of foot board initially with CGA then progressed to SBA. Pt sat at EOB for ~ 5-6 mins.) Standing Balance: (poor) Standing Balance Comment: Static standing balance with max assist x 1 plus mod assist x 1. ADL LE Dressing: (Dep for bilateral socks.) Tone RUE RUE Tone: Normotonic Tone LUE LUE Tone: Normotonic Bed mobility Supine to Sit: Moderate assistance Sit to Supine: (Max assist x 3 persons) Scooting: Moderate assistance Comment: Boost to HOB with max assist x 4 persons. Transfers Sit to stand: (Max assist x1 plus mod assist x 1) Stand to sit: (Max assist x 1 plus mod assist x 1) Transfer Comments: Performed sit to stand from EOB 2 times. First time pt able to at least elevate buttocks 3/[address] off EOB. Left knee blocked. Tried to scoot to HOB, but unsuccessful. Vision - Basic Assessment Prior Vision: (Pt wears glasses all the time.) Cognition Overall Cognitive Status: WFL Sensation Overall Sensation Status: WFL (Pt denies any numbness & tingling in bilateral UE's. Intact to light touch.) LUE AROM (degrees) LUE AROM : WFL RUE AROM (degrees) RUE AROM : WFL LUE Strength Gross LUE Strength: (4+/5) RUE Strength Gross RUE Strength: (4+/5) Plan Plan Times per week: 3-5x/wk Plan weeks: 4 weeks Current Treatment Recommendations: Strengthening, Patient/Caregiver Education & Training, Home Management Training, Balance Training, Functional Mobility Training, Endurance Training, Self-Care /ADL, Safety Education & Training OutComes Score [facility] Daily Activity Inpatient How much help for putting on and taking off regular lower body clothing?: Total How much help for Bathing?: A Lot How much help for Toileting?: Total How much help for putting on and taking off regular upper body clothing?: A Little How much help for taking care of personal grooming?: A Little How much help for eating meals?: A Little [facility] Inpatient Daily Activity Raw Score: 13 [facility] Inpatient ADL T-Scale Score : 32.03 ADL Inpatient CMS 0-100% Score: 63.03 ADL Inpatient CMS G-Code Modifier : CL AM-PAC Score AM-PAC Inpatient Daily Activity Raw Score: 13 (06/24/21 145) [facility] Inpatient ADL T-Scale Score : 32.03 (06/24/211453) ADL Inpatient CMS 0-100% Score: 63.03 (06/24/211453) ADL Inpatient CMS G-Code Modifier : CL (06/24/211453) Goals Short term goals Time Frame for Short term goals: 4 weeks Short term goal 1: Dynamic sitting balance at EOB during bilateral UE task x 5-8 mins with supervision. Short term goal 2: BSC transfer with mod assist. Short term goal 3: Static standing balance during unilateral UE task x 2-3 mins with min assist. Short term goal 4: Don pants and socks using AE with min assist. Patient Goals Patient goals : To go to rehab. Therapy Time Individual Concurrent Group Co-treatment Time In 1405 Time Out 1433 Minutes 28 Timed Code Treatment Minutes: 15 Minutes (funct act - 1) Goals and/or treatment plan was established in collaboration with patient/family/other representatives. Patient's Occupational Therapy Plan of Care supervision is transferred to [facility] Occupational Therapist. This provider wore an N95, face shield, and gloves for the duration of the session with this pt. Anitra Patel MS, OTR/L * MANDY PATRICK - 06/24/2021 1:55 PM EDT Weaned O2 to 4 liters but pt seemed to be struggling to breath. Gave breathing tx and turned up to 5 liters. Told her if she needs to be put on Cpap during a nap today to let us know. * Tracy Hunter, JOSE - 06/24/2021 11:00 AM EDT Speech Language Pathology Facility/Department: [facility] Dysphagia Treatment Note NAME: Jesusita England : 1970 Patient Diagnosis(es): Patient Active Problem List Diagnosis Pneumonia due to COVID-19 virus Palliative care encounter COVID-19 Anxiety Insomnia Constipation Gastroesophageal reflux disease without esophagitis Angular cheilitis Allergies: No Known Allergies Onset Date: 06/03/2021 Oxygen Level: 5L NC Current Diet Level: Regular with thin liquids Compensatory Techniques -Upright -Small bolus -Rest breaks if needed Pain:Being managed by RN. S: Patient seen for dysphagia therapy seated upright in bed, her vocal quality remains dysphonic. The patient alert and cooperative. O: The patient was seen on this date to assess diet tolerance of her currently prescribed diet. A: The patient exhibits adequate and functional mastication and manipulation of a cohesive bolus with regular solids. No residue present following clearance. The patient accepted thin liquids via straw with adequate labial seal, clinically prompt swallow, and no clinical s/s concerning for airway pe netration/aspiration or other pharyngeal impairments across multiple swallows. []? Goal met [x]? Progressing as expected []? Progressing slower than expected []? Medical status inhibits participation []? Goals not addressed this session []? Goals revised this session []? Unable to show any progress towards functional goals []? Progress towards functional goal is gradual / fair P: Recommend patient continue a regular diet with thin liquids; recommend patient continue use of compensatory strategies for upright positioning, small bites, small sips, and respiratory breaks as needed. [employer] will continue to follow with dysphagia plan of care as specified in the initial evaluation. Recommend the patient receive an ENT consult to further assess dysphonia. * Lacy Boswell, PhD - 06/24/2021 10:53 AM EDT Department of Psychiatry Progress Note In/Out/Time: 10 - 10:20am; 20 min Reason for consult: f/u psychosocial support related to anxiety, depression, COVID recovery SUBJECTIVE: Patient shares distress related to continued fatigue, SOB, and physical weakness/debility. Hopes to begin working with PT as soon as possible. Is thankful that daughter is in town and able to visit for next couple weeks. OBJECTIVE No evidence of SI/HI. At this time, no manic, no psychotic symptoms present. MENTAL STATUS EXAM Appearance: hospital gown; with NIV Behavior: cooperative, pleasant Activity: decreased Speech: spontaneous, normal rate, normal volume Mood: anxious and depressed, Affect: congruent with mood Associations: goal-directed Thought content: no paranoia or delusions Thought process: organized Orientation: oriented in all spheres Attention: good Concentration: good Insight: good Judgment: good Cognitive: Adequate fund of knowledge. Memory, attention, and concentration are grossly intact. Suicidal Thoughts: Denies suicidal thoughts, intentions, and plans. Denies thoughts of self-harm. Denies morbid ideation. Functional status: impaired Impression: Adjustment related anxiety and depression Prognosis: fair to good (protective factors include future-mindedness, good social support- , sisters, daughter, spiritual beliefs, etc) Treatment Modality/Intervention: assessment; supportive intervention; coping skills ASSESSMENT AND PLAN: No evidence of SI/HI; patient continues to be future-focused. Alert and oriented in all spheres. With adjustment-related anxiety and depression in response to current medical stressors/losses, as well as uncertainty related to recovery process. Session focused on providing assessment, psycho-education, and supportive intervention. Provided active listening and encouragement. Facilitated identification of factors within patient control. Identified positive social supports. Encouraged self-compassion. Communicated with primary team via PS about patient's desire to start PT- informed that PT plans tomeet with patient tomorrow. Risk Management: routine; no safety concerns identified Will continue to follow as able during this stay. * Monae Huang, DO - 06/24/2021 7:44 AM EDT Images from the original note were not included. Med Team Progress Note Jesusita England : 1970(51 y.o.) Date: June 24, 2021 Med Team: Jennifer Attending: Dr. Sellers Chief Complaint: SOB Subjective: - No acute events overnight. - Currently, Ms. England is resting in bed. She continues to have SOB and remains on 5 L of O2. She states that she continues to have a sore throat since being extubated and that eating some foods makesher throat hurt worse. She states that she has a good appetite and has been eating and drinking well without nausea or vomiting. She states that she continues to be constipated. She feels that being strong enough to get to the bedside commode would help her constipation. She states that she has been having this issue for a while and has only been able to have small BMs since it began. She states that she has previously had a suppository while in the hospital, but it only helped evacuate a smallamount of feces. She continues to be weak all over, but her legs feel more weak than her arms. Review of Systems Constitutional: Positive for fatigue and fever (states that she had a fever yesterday although thisis not documented in vitals or corroborated by nursing). Negative for appetite change, chills and diaphoresis. HENT: Positive for sore throat. Respiratory: Positive for cough (states she had an unproductive cough this morning). Negative for shortness of breath and wheezing. Cardiovascular: Negative for chest pain, palpitations and leg swelling. Gastrointestinal: Positive for constipation. Negative for abdominal pain, diarrhea, nausea and vomiting. Genitourinary: Negative for difficulty urinating and dysuria. Has an external catheter Neurological: Positive for tremors (states that she is having occassional tremors that has been occuring since she was first hospitalized) and weakness (all over but LE more than UE). Negative for dizziness, light-headedness, numbness and headaches. Scheduled Meds: magnesium oxide 400 mg Oral BID gabapentin 300 mg Oral TID mometasone-formoterol 2 puff Inhalation BID pantoprazole 40 mg Oral QAM AC ipratropium-albuterol 1 ampule Inhalation TID sodium hypochlorite Irrigation Daily mineral oil-hydrophilic petrolatum Topical BID collagenase Topical Daily stomahesive in petrolatum Topical BID melatonin 3 mg Oral Nightly vancomycin 2,000 mg Intravenous Q12H sennosides-docusate sodium 2 tablet Oral BID polyethylene glycol 17 g Oral BID miconazole Topical BID Vitamin D 2,000 Units Per G Tube Daily sodium chloride flush 10 mL Intravenous 2 times per day enoxaparin 40 mg Subcutaneous BID cholestyramine 1 packet Oral Daily sodium chloride flush 5-40 mL Intracatheter Q8H Continuous Infusions: dextrose 100 mL/hr (06/22/216) sodium chloride 25 mL (06/16/21 0928) PRN meds used in last 24hrs: Acetaminophen 650 mg x 1 dose Objective: BP 118/76 Pulse 83 Temp 97.2 F (36.2 C) (Temporal) Resp 20 Ht 5' 5 (1.651 m) Wt (!) 408 lb 4.8 oz (185.2 kg) SpO2 98% BMI 67.94 kg/m Physical Exam Vitals reviewed. Constitutional: General: She is not in acute distress. Appearance: She is obese. She is not diaphoretic. HENT: Head: Normocephalic and atraumatic. Cardiovascular: Rate and Rhythm: Normal rate and regular rhythm. Pulses: Normal pulses. Heart sounds: No murmur heard. No friction rub. Pulmonary: Effort: No respiratory distress. Breath sounds: Wheezing present. No rhonchi. Comments: On 5L NC Abdominal: General: There is no distension. Palpations: Abdomen is soft. Tenderness: There is no abdominal tenderness. There is no guarding or rebound. Musculoskeletal: General: No tenderness. Right lower leg: Edema present. Left lower leg: Edema present. Skin: General: Skin is warm and dry. Neurological: Mental Status: She is alert. Sensory: Sensation is intact. Motor: Weakness (weakness of b/l LE to point that pt is unable to lift or move legs substanially. UE strength normal on exam.) present. No tremor or abnormal muscle tone. Comments: Patient is very weak and unable to move LE or sit up in bed. She is able to move her UE and has normal strength bilaterally on exam. [facility] within last 24 hours Lab Results Component Value Date/Time WBC 7.2 06/24/2021 02:41 AM Hemoglobin 9.8 (L) 06/24/2021 02:41 AM Hematocrit 30.3 (L) 06/24/2021 02:41 AM Platelets 153 06/24/2021 02:41 AM MCV 73.6 (L) 06/24/2021 02:41 AM Lab Results Component Value Date/Time Sodium 131 (L) 06/24/2021 02:41 AM Potassium 4.1 06/24/2021 02:41 AM Chloride 96 (L) 06/24/2021 02:41 AM CO2 28 06/24/2021 02:41 AM BUN 34 (H) 06/24/2021 02:41 AM CREATININE 1.26 (H) 06/24/2021 02:41 AM Glucose 152 (H) 06/24/2021 02:41 AM Calcium 8.5 06/24/2021 02:41 AM Magnesium 2.0 06/24/2021 02:41 AM Phosphorus 3.9 06/24/2021 02:41 AM Lab Results Component Value Date/Time AST 46 06/24/2021 02:41 AM ALT 57 (H) 06/24/2021 02:41 AM Total Protein 6.6 06/24/2021 02:41 AM Albumin,Serum 2.9 (L) 06/24/2021 02:41 AM Total Bilirubin 0.7 06/24/2021 02:41 AM Alkaline Phosphatase 112 06/24/2021 02:41 AM Assessment and Plan: Acute Respiratory Failure 2/2 COVID PNA + MSSA PNA + Moderate Pulm edema/Effusions- improving. - S/p remdesevir/decadron. S/p intubation from 06/04-06/18. - Cont duonebs QID + dulera qd - Wean oxygen as able; currently on 5 L O2 nasal canula sating 98% - Will reach out to respiratory to wean oxygen - incentive spirometry to restrenghten lungs and open airway - lasix dc'ed 06/23 due to MIRIAM - acapella Debility 2/2 Intubation and ICU admission - PT/OT evaluation - work with PT - once able to get standing with assist will use bedside bariatric commode. 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 - (OSH SCx 06/02/21: MSSA. SCx 06/12: normal pretty; SCx: 06/15: MRSA - on linezolid till 06/18; SCx 06/19: -MSSA - on vancomycin now per ID). - Culture Sensitivities from 06/19 still pending - follow for results. ID signed off. - continue Vanc for staph hominis bacteremia end date 06/26 per ID Hyponatremia - downtrending - today, 131 - urine studies - if studies indicate hypovolemia, will give fluids Constipation - may be 2/2 questran 4 g. Pt is resistant to hold questran - Senokt PO bid; Glycolax 17 g po bid - daily dulcolex suppository - 1/2 dose of questran Staph Hominis Bacteremia likely 2/2 CVC related - s/p removed line. - Currently on vancomycin through 06/26/21 per ID. E.Coli UTI (UCx 06/16: PanSn UTI s/p Cefepime Tx) - replaced urethral galeano with urethral Pure Wick external cath Rising Alk Phos - 78--> 101 --> 149 -> 127 (06/22) -> 116 (06/23)-> 112 (06/24) - continues to downtrend, monitor Dysphagia/ Post extubation dysphagia - Recommend patient resume minced and moist diet with thin liquids. [employer] will continue to follow with dysphagia plan of care, and will assess with upgrade trials as patient is able. - likely due to post extubation laryngeal inflammation from the ETT - Protonix 40 mg po qd if it is GERD related dysphagia, but likely post intubation dysphagia B/l Stasis Dermatitis, Wounds - aquaphor ointment bid apply to b/l LE and feet - wound care Morbid Obesity MIGUEL Asthma - palliative following, appreciate input - dulera PO + duonebs qid Peripheral Neuropathy - gabapentin 300 mg TID Sepsis 2/2 above (resolved) - Goals of Care: FULL CODE - DVT Prophylaxis: Lovenox 40 mg BID - GI Prophylaxis: Protonix daily - Diet: General Associated attestation - Shashank Sellers MD - 06/24/2021 5:31 PM EDT I have discussed the care of Jesusita England with the medical student and/or resident. I have personally taken a history, examined the patient, and performed the associated medical decision making activities. I have reviewed & verified the attested documentation. Unless otherwise noted below, this documentation reflects the history, physical exam, and medical decision making that I performed myself. Please see note for my personal highlights or additions in Green. Patient seen and examined personally at 1215 (Date of Service: 06/24/21) Ro[place] Changes to Care Plan: - PT/OT today - wean O2 - given constipation, decrease questran to 2g daily - will need iron eventually (no IV Iron given BSI, no PO given constipation). - patient very motivated to get better. Pager: [phone] I spent over 51% total time of 27 minutes counseling (or coordinating care). Discussed current planof care with patient. Coordinated care with resident team. Also d/w TCC regarding discharge plans and helping coordinate PT/OT * Kyung Wong, DO - 06/23/2021 7:01 AM EDT Images from the original note were not included. Med Team Progress Note Jesusita England : 1970(51 y.o.) Date: June 23, 2021 Med Team: C Attending: Dr. Sellers Chief Complaint: Shortness of breath Subjective: - Overnight, note that patient had hypoglycemia; given 1 dose of 5% dextrose - Currently, appears to be doing better. Pt feels like she is progressing but still frustrated about the level of deconditioning and lack of strength she is experiencing. Slept well. On a general diet and has not experienced any difficulty with swallowing or nausea. On 5 L nasal cannula o2 95%. She is agreeable to increasing physical activity. 1 bm yesterday. Sleeping better. Took dulera yesterday. Sister is providing her with some PT exercises. Pure Wick in place since removal of urethral galeano cath. Left foot hanging off bed. Doesn't have enough strenght to move leg back to bed. Review of Systems Constitutional: Negative. Negative for activity change, appetite change, chills and diaphoresis. Respiratory: Negative for apnea, cough, shortness of breath and stridor. Cardiovascular: Negative for chest pain, palpitations and leg swelling. Gastrointestinal: Negative for constipation. Genitourinary: Negative for difficulty urinating, dysuria and flank pain. Neurological: Positive for weakness. Negative for headaches. Psychiatric/Behavioral: Negative for agitation, behavioral problems, confusion, decreased concentration, dysphoric mood and hallucinations. The patient is not hyperactive. Scheduled Meds: gabapentin 300 mg Oral TID mometasone-formoterol 2 puff Inhalation BID pantoprazole 40 mg Oral QAM AC ipratropium-albuterol 1 ampule Inhalation TID sodium hypochlorite Irrigation Daily mineral oil-hydrophilic petrolatum Topical BID collagenase Topical Daily stomahesive in petrolatum Topical BID melatonin 3 mg Oral Nightly vancomycin 2,000 mg Intravenous Q12H sennosides-docusate sodium 2 tablet Oral BID polyethylene glycol 17 g Oral BID miconazole Topical BID furosemide 40 mg Intravenous BID Vitamin D 2,000 Units Per G Tube Daily sodium chloride flush 10 mL Intravenous 2 times per day enoxaparin 40 mg Subcutaneous BID cholestyramine 1 packet Oral Daily sodium chloride flush 5-40 mL Intracatheter Q8H Continuous Infusions: dextrose 100 mL/hr (06/22/21 6730) sodium chloride 25 mL (06/16/21 6033) PRN meds used in last 24hrs: dextrose 5% at 21:44 low blood sugar? Objective: BP 119/68 Pulse 86 Temp 97.2 F (36.2 C) (Temporal) Resp 20 Ht 5' 5 (1.651 m) Wt (!) 408 lb 4.8 oz (185.2 kg) SpO2 96% BMI 67.94 kg/m Physical Exam Constitutional: General: She is not in acute distress. Appearance: Normal appearance. She is obese. She is not ill-appearing. HENT: Head: Normocephalic. Cardiovascular: Rate and Rhythm: Normal rate and regular rhythm. Pulses: Normal pulses. Heart sounds: Normal heart sounds. Pulmonary: Breath sounds: Wheezing and rhonchi present. Musculoskeletal: Right lower leg: Edema present. Left lower leg: Edema present. Neurological: General: No focal deficit present. Mental Status: She is alert and oriented to person, place, and time. Sensory: No sensory deficit. Motor: Weakness (2/5 in LE) present. Psychiatric: Mood and Affect: Mood normal. Behavior: Behavior normal. Thought Content: Thought content normal. Judgment: Judgment normal. [facility] within last 24 hours Lab Results Component Value Date/Time WBC 9.5 06/23/2021 02:47 AM Hemoglobin 10.5 (L) 06/23/2021 02:47 AM Hematocrit 32.4 (L) 06/23/2021 02:47 AM Platelets 148 06/23/2021 02:47 AM MCV 74.8 (L) 06/23/2021 02:47 AM Lab Results Component Value Date/Time Sodium 132 (L) 06/23/2021 02:47 AM Potassium 3.7 06/23/2021 02:47 AM Chloride 98 06/23/2021 02:47 AM CO2 27 06/23/2021 02:47 AM BUN 31 (H) 06/23/2021 02:47 AM CREATININE 0.95 06/23/2021 02:47 AM Glucose 138 (H) 06/23/2021 02:47 AM Calcium 8.4 06/23/2021 02:47 AM Magnesium 1.9 06/23/2021 02:47 AM Phosphorus 3.4 06/23/2021 02:47 AM Lab Results Component Value Date/Time AST 50 (H) 06/23/2021 02:47 AM ALT 72 (H) 06/23/2021 02:47 AM Total Protein 6.3 06/23/2021 02:47 AM Albumin,Serum 2.9 (L) 06/23/2021 02:47 AM Total Bilirubin 0.6 06/23/2021 02:47 AM Alkaline Phosphatase 116 06/23/2021 02:47 AM Assessment and Plan: *Acute Respiratory Failure 2/2 COVID PNA + MSSA PNA + Moderate Pulm edema/Effusions- improving. -S/p remdesevir/decadron. -S/p intubation from 06/04-06/18. -SCx OSH (06/02/21: MSSA). Cont duonebs QID + dulera qd DC IV Lasix BID for now. sCr 0.5 -> 0.95. Closely monitor BUN/Cr, -CXR ordered- 06/22: Patchy consolidation remains in the lower hemithoraces without change -Wean oxygen as able; currently on 5 L O2 nasal canula -Will continue Lasix 40 mg bid. 06/23: BUN 31; sCr 0.95; reassess tomorrow -incentive spirometry to restrenghten lungs and open airway -PT/OT evaluation still pending...patient and family hoping for patient to do IP Rehab at [employer] (where sister works as a nurse). PT discharge recomm on 06/20 to LTACH. LTACH refused. Looking into [facility].. -work with PT - once able to get standing with assist - will use bedside bariatric commode. -since patient appears to be highly motivated to increase physical activity so putting another PT consult in MIRIAM 2/2 likely due to Lasix- sCr 0.5 -> 0.95 within 48 hrs -dc IV lasix 40 mg bid -continue to follow kidney fxn; f/u on sCr, BUN Anemia with low MCV 2/2 iron def vs anemia of chronic disease -iron studies ordered to determine etiology -f/u on TIBC, Transferrin, Iron labs *VAP 2/2 MRSA + now MSSA again. -(OSH SCx 06/02/21: MSSA. SCx 06/12: normal pretty; SCx: 06/15: MRSA - on linezolid till 06/18; SCx 06/19:-MSSA - on vancomycin now per ID). -Culture Sensitivities from 06/19 still pending - follow for results. ID signed off. -continue Vanc for staph hominis bacteremia x 7 end date 06/26 per ID *Staph Hominis Bacteremia likely 2/2 CVC related - s/p removed line. -Currently on vancomycin through 06/26/21 per ID. E.Coli UTI (UCx 06/16: PanSn UTI s/p Cefepime Tx) -replaced urethral galeano with urethral Pure Wick external cath Rising Alk Phos - 78--> 101 --> 149 -> 127 (06/22) -> 116 (06/23) continues to downtrend Dysphagia/ Post extubation dysphagia -Recommend patient resume minced and moist diet with thin liquids. [employer] will continue to follow withdysphagia plan of care, and will assess with upgrade trials as patient is able. -likely due to post extubation laryngeal inflammation from the ETT -Protonix 40 mg po qd if it is GERD related dysphagia, but likely post intubation dysphagia B/l Stasis Dermatitis -aquaphor ointment bid apply to b/l LE and feet Morbid Obesity MIGUEL Asthma - palliative following, appreciate input -dulera PO + duonebs qid Peripheral Neuropathy- gabapentin 300 mg TID Fluids: none Electrolytes: K+(3.7) today; 40 mEq PO K+recheck tomorrow. Discontinuing Lasix 40 mg BID. Nausea: Zofran 4 mg PRN DVT prophylaxis: lovenox 40 bid GI: protonix 40 mg qd, pepcid Constipation: resolved - may be 2/2 questran 4 g.. Consider dc if constipation returns - Senokt PO bid; Glycolax 17 g po bid - 3 bowel movements 06/20; -1 bowel movement 06/21; continue current bowel regimen Sepsis 2/2 above - resolved - Goals of Care: FULL CODE - DVT Prophylaxis: lovenox 40 q24h - creatinine clearance > 30 - GI Prophylaxis: Protonix daily - Diet: General Associated attestation - Shashank Sellers MD - 06/23/2021 11:21 AM EDT I have discussed the care of Jesusita England with the medical student and/or resident. I have personally taken a history, examined the patient, and performed the associated medical decision making activities. I have reviewed & verified the attested documentation. Unless otherwise noted below, this documentation reflects the history, physical exam, and medical decision making that I performed myself. Please see note for my personal highlights or additions in Green. Patient seen and examined personally at 0807 (Date of Service: 06/23/21) Roach Changes to Care Plan: - cont to f/u Resp Cx from 06/19/21 for Sn. - Asked PT to come back to see patient again today - patient motivated and states she can work for 3 hours. Patient and family hoping for IP Rehab upon discharge if patient appropriate per PT. - Cr up today -> evidence that we have dried her lungs out as much as possible. Remaining infiltrates related to COVID pneumonia changes and MSSA pneumonia. - discussed case again at length with sister at patient's request. Updated on changes for today (MIRIAM, stop lasix, etc). Discussed concerns regarding patient's overall deconditioning. Sister works at IP rehab and hoping patient would qualify to go there upon discharge. She came and worked with patient yesterday since PT hasn't been in to see patient since 06/20/21. - patient remains very hesitant to hold questran despite constipation as holding med in past gives her significant upset stomach, severe nausea, and diarrhea. - monitor Cr Pager: [phone] I spent over 51% total time of 44 minutes counseling (or coordinating care). Discussed current planof care with patient. Coordinated care with resident team. Also discussed with sister as per above. * Carrie Cardenas - 06/22/2021 12:59 PM EDT [facility] Respiratory Care Department Progress Note As part of the Respiratory Assessment Program (RAP), the following Respiratory Therapist evaluationhas been completed, including a chart review and clinical/physical assessment. Respiratory Therapist RAP Evaluation Guideline Points 0 1 2 3 4 Points Strongly Consider History Factor No Pulmonary conditions Stable Pulmonary condition(s) Surgery or Intervention that may impact Pulmonary system (at risk) Surgery or Intervention that is impacting Pulmonary system Active Exacerbation of Pulmonary Condition 1 Respiratory Pattern Regular, RR= 12-18 GARDINER or Increased RR= 19-24 Irregular, or RR= 25-30 SOB, talk in short sentences, or RR= 31-35 Severe SOB, accessory muscle use, one word answers, or RR>35 3 Aerosol Med(s), High Flow O2 Breath Sounds Clear Diminished in 1 lobe Diminished in ? 2 lobes Adventitious breath sounds Coarse crackles, Wheezes, or Diminished in >2 lobes 2 Aerosol Med(s), Bronchial Hygiene, Hyperinflation Cough & Sputum Strong cough, no secretion retention or production Weak cough, no secretion retention or production Weak cough, w/ production (less often than Q2hr), or secretion retention No cough, w/ secretion retention or production (less often than Q2hr) Significant secretion production (more often than Q2hr) or mucus plug 0 Aerosol Med(s), Bronchial Hygiene, Hyperinflation Level of Activity Ambulatory Ambulatory with Assist Up in chair or edge of bed (dangle) Non-ambulatory, bedridden with active ROM Completely paralyzed or without active ROM 1 Triage 5 0-2 Triage 4 3-5 Triage 3 6-10 Triage 2 11-14 Triage 1 ?15 Total 7 Triage Score = 3 TRIAGE SCORING SUGGESTED FREQUENCIES Aerosol Therapy Bronchial Hygiene Hyperinflation Triage Score Q4h & PRN 1 Q4hWA (QID) & PRN 2 TID & PRN 3 BID & PRN 4 PRN 5 Therapy(s) Indicated Yes/No Aerosol Medication Y Hyperinflation Y Bronchial Hygiene N High Flow Oxygen N RT to enter/modify frequency of treatment order in EMR/EHR to match this RAP evaluation. Based on this RAP evaluation the following therapy is being initiated: DUONEB AEROSOLS At the following frequency: TID & PRN Comments: Thank you for involving Respiratory in the care of this patient, * Kyung Wong, DO - 06/22/2021 7:10 AM EDT Images from the original note were not included. Med Team Progress Note Jesusita England : 1970(51 y.o.) Date: June 22, 2021 Med Team: Jennifer Attending: Dr. Sellers Chief Complaint: shortness of breath Subjective: - No acute events overnight. - Currently, laying in bed doing well. [employer] saw her yesterday and advanced her diet. States that sheis experiencing some dysphagia since extubation. Dysphagia likely due post extubation dysphagia after being on a ventilatory for 15 days. Review of Systems Constitutional: Negative for appetite change, chills, diaphoresis, fatigue and fever. Respiratory: Positive for cough, shortness of breath and wheezing. Negative for apnea, choking, chest tightness and stridor. Cardiovascular: Positive for leg swelling. Negative for chest pain and palpitations. Gastrointestinal: Negative for abdominal distention, abdominal pain, anal bleeding, constipation, diarrhea, nausea, rectal pain and vomiting. Scheduled Meds: sodium hypochlorite Irrigation Daily mineral oil-hydrophilic petrolatum Topical BID collagenase Topical Daily stomahesive in petrolatum Topical BID pantoprazole 40 mg Oral BID AC insulin lispro 0-12 Units Subcutaneous TID WC melatonin 3 mg Oral Nightly vancomycin 2,000 mg Intravenous Q12H sennosides-docusate sodium 2 tablet Oral BID polyethylene glycol 17 g Oral BID miconazole Topical BID furosemide 40 mg Intravenous BID gabapentin 300 mg Per G Tube TID Vitamin D 2,000 Units Per G Tube Daily sodium chloride flush 10 mL Intravenous 2 times per day enoxaparin 40 mg Subcutaneous BID cholestyramine 1 packet Oral Daily sodium chloride flush 5-40 mL Intracatheter Q8H Continuous Infusions: dextrose sodium chloride 25 mL (06/16/21 0928) PRN meds used in last 24hrs: no PRNS used Objective: BP 115/68 Pulse 77 Temp 97.8 F (36.6 C) (Temporal) Resp 16 Ht 5' 5 (1.651 m) Wt (!) 408 lb 4.8 oz (185.2 kg) SpO2 93% BMI 67.94 kg/m Physical Exam Constitutional: General: She is not in acute distress. Appearance: She is morbidly obese. She is ill-appearing. She is not toxic-appearing. Interventions: Nasal cannula in place. Comments: 5 L high flow o2 HENT: Head: Normocephalic. Cardiovascular: Rate and Rhythm: Normal rate and regular rhythm. Pulses: Normal pulses. Heart sounds: Normal heart sounds. Pulmonary: Effort: Pulmonary effort is normal. Breath sounds: Decreased air movement present. Examination of the right-upper field reveals wheezing. Examination of the left-upper field reveals wheezing. Examination of the right-lower field reveals rales. Examination of the left- lower field reveals rales. Wheezing and rales present. Abdominal: General: Bowel sounds are normal. There is no distension. Tenderness: There is no abdominal tenderness. There is no guarding or rebound. Musculoskeletal: Right lower le+ Pitting Edema (2+) present. Left lower le+ Pitting Edema (2+) present. Skin: General: Skin is warm and dry. Capillary Refill: Capillary refill takes less than 2 seconds. Neurological: Mental Status: She is alert and oriented to person, place, and time. Mental status is at baseline. Cranial Nerves: No cranial nerve deficit. Psychiatric: Attention and Perception: Attention and perception normal. Mood and Affect: Mood and affect normal. Speech: Speech normal. Behavior: Behavior normal. Behavior is cooperative. Thought Content: Thought content normal. Cognition and Memory: Cognition normal. [facility] within last 24 hours Lab Results Component Value Date/Time WBC 8.7 06/22/2021 04:06 AM Hemoglobin 10.8 (L) 06/22/2021 04:06 AM Hematocrit 34.7 (L) 06/22/2021 04:06 AM Platelets 123 (L) 06/22/2021 04:06 AM MCV 75.5 (L) 06/22/2021 04:06 AM Lab Results Component Value Date/Time Sodium 132 (L) 06/22/2021 04:06 AM Potassium 3.5 06/22/2021 04:06 AM Chloride 96 (L) 06/22/2021 04:06 AM CO2 30 06/22/2021 04:06 AM BUN 31 (H) 06/22/2021 04:06 AM CREATININE 0.66 06/22/2021 04:06 AM Glucose 147 (H) 06/22/2021 04:06 AM Calcium 9.0 06/22/2021 04:06 AM Magnesium 2.1 06/22/2021 04:06 AM Phosphorus 3.5 06/22/2021 04:06 AM Lab Results Component Value Date/Time AST 62 (H) 06/22/2021 04:06 AM ALT 79 (H) 06/22/2021 04:06 AM Total Protein 6.9 06/22/2021 04:06 AM Albumin,Serum 3.1 (L) 06/22/2021 04:06 AM Total Bilirubin 0.8 06/22/2021 04:06 AM Alkaline Phosphatase 127 (H) 06/22/2021 04:06 AM Assessment and Plan: Acute Respiratory Failure 2/2 COVID PNA + MSSA PNA + Moderate Pulm edema/Effusions- improving. -S/p remdesevir/decadron. -S/p intubation from 06/04-06/18. -SCx OSH (06/02/21: MSSA). Cont duonebs QID. Cont IV Lasix BID for now. Closely monitor BUN/Cr, -CXR ordered- 06/22: Patchy consolidation remains in the lower hemithoraces without change -Wean oxygen as able; currently on 5 L high flow O2. -Will continue Lasix 40 mg bid. Reassess tm -PT/OT evaluation pending...patient and family hoping for patient to do IP Rehab at [place] (where sister works as a nurse). -work with PT - once able to get standing with assist - will use bedside bariatric commode. VAP 2/2 MRSA + now MSSA again. -(OSH SCx 06/02/21: MSSA. SCx 06/12: normal pretty; SCx: 06/15: MRSA - on linezolid till 06/18; SCx 06/19:-MSSA - on vancomycin now per ID). -Culture Sensitivities from 06/19 still pending - follow for results. ID signed off yesterday. -continue Vanc for staph hominis bacteremia x 7 end date 06/26 Staph Hominis Bacteremia likely 2/2 CVC related - s/p removed line. -Currently on vancomycin through 06/26/21 per ID. E.Coli UTI (UCx 06/16: PanSn UTI s/p Cefepime Tx) -replacing urethral galeano Rising Alk Phos - 78--> 101 --> 149. No trending down 127 (06/22) Dysphagia/ Post extubation dysphagia -Recommend patient resume minced and moist diet with thin liquids. [employer] will continue to follow withdysphagia plan of care, and will assess with upgrade trials as patient is able. -likely due to post extubation laryngeal inflammation from the ETT -Protonix 40 mg po qd if it is GERD related dysphagia, but likely post intubation dysphagia Constipation: resolved - may be 2/2 questran 4 g.. Consider dc if constipation returns - Senokt PO bid; Glycolax 17 g po bid - 3 bowel movements 06/20; -1 bowel movement 06/21; continue current bowel regimen B/l Stasis Dermatitis -aquaphor ointment bid apple to b/l LE and feet Morbid Obesity MIGUEL Asthma - palliative following, appreciate input -dulera PO Peripheral Neuropathy- gabapentin 300 mg TID Fluids: none Electrolytes: 40 mEq PO K+recheck tomorrow. Will continue Lasix 40 mg bid. Reassess tm Nausea: Zofran 4 mg PRN DVT prophylaxis: lovenox 40 bid GI: protonix 40 mg qd, pepcid Sepsis 2/2 above - resolved - Goals of Care: FULL CODE - DVT Prophylaxis: lovenox 40 q24h - creatinine clearance > 30 - GI Prophylaxis: Protonix daily - Diet: General Associated attestation - Shashank Sellers MD - 06/22/2021 3:25 PM EDT I have discussed the care of Jesusita England with the medical student and/or resident. I have personally taken a history, examined the patient, and performed the associated medical decision making activities. I have reviewed & verified the attested documentation. Unless otherwise noted below, this documentation reflects the history, physical exam, and medical decision making that I performed myself. Please see note for my personal highlights or additions in Green. Patient seen and examined by myself at 0853 on 06/22/21 [place] Changes to Care Plan: - cont IV lasix for today. Cr and BUN will still allow - cont vanc for MSSA PNA + S. Hominis BSI - need PT/OT - pull galeano given CAUTI on 06/16/21 - patient still with galeano in from admission 06/03/21 per LDA documentation in Epic - once able to stand with PT - will need bedside bariatric commode. - add LABA/ICS given concern for underlying chronic asthma (was on HARMAN prior to getting sick by PCP). - wean o2 as able. - patient on questran for bile acid diarreha. Had BM today but has been struggling with constipation while hospitalized. Patient very hesitant to stop questran as she has been on it for 15 years and always feels ill when misses a dose. Sister is Nurse at IP Rehab in out of town (? [place]) - she is hoping patient will qualify for IP Rehab for discharge to her facility. Pager: [phone] I spent over 51% total time of 49 minutes counseling (or coordinating care). Discussed current planof care with patient. Coordinated care with resident team. Also d/w sister over the phone at bedside per patient's request * MANDY PATRICK - 06/21/2021 5:19 PM EDT [facility] Respiratory Care Department Progress Note As part of the Respiratory Assessment Program (RAP), the following Respiratory Therapist evaluationhas been completed, including a chart review and clinical/physical assessment. Respiratory Therapist RAP Evaluation Guideline Points 0 1 2 3 4 Points Strongly Consider History Factor No Pulmonary conditions Stable Pulmonary condition(s) Surgery or Intervention that may impact Pulmonary system (at risk) Surgery or Intervention that is impacting Pulmonary system Active Exacerbation of Pulmonary Condition 1 Respiratory Pattern Regular, RR= 12-18 GARDINER or Increased RR= 19-24 Irregular, or RR= 25-30 SOB, talk in short sentences, or RR= 31-35 Severe SOB, accessory muscle use, one word answers, or RR>35 0 Aerosol Med(s), High Flow O2 Breath Sounds Clear Diminished in 1 lobe Diminished in ? 2 lobes Adventitious breath sounds Coarse crackles, Wheezes, or Diminished in >2 lobes 0 Aerosol Med(s), Bronchial Hygiene, Hyperinflation Cough & Sputum Strong cough, no secretion retention or production Weak cough, no secretion retention or production Weak cough, w/ production (less often than Q2hr), or secretion retention No cough, w/ secretion retention or production (less often than Q2hr) Significant secretion production (more often than Q2hr) or mucus plug 0 Aerosol Med(s), Bronchial Hygiene, Hyperinflation Level of Activity Ambulatory Ambulatory with Assist Up in chair or edge of bed (dangle) Non-ambulatory, bedridden with active ROM Completely paralyzed or without active ROM 1 Triage 5 0-2 Triage 4 3-5 Triage 3 6-10 Triage 2 11-14 Triage 1 ?15 Total 2 Triage Score = 5 TRIAGE SCORING SUGGESTED FREQUENCIES Aerosol Therapy Bronchial Hygiene Hyperinflation Triage Score Q4h & PRN 1 Q4hWA (QID) & PRN 2 TID & PRN 3 BID & PRN 4 PRN 5 Therapy(s) Indicated Yes/No Aerosol Medication No Hyperinflation No Bronchial Hygiene No High Flow Oxygen No RT to enter/modify frequency of treatment order in EMR/EHR to match this RAP evaluation. Based on this RAP evaluation the following therapy is being initiated: Duoneb At the following frequency: prn Comments: Thank you for involving Respiratory in the care of this patient, * Carley Cortes SLP - 06/21/2021 3:00 PM EDT Speech Language Pathology Facility/Department: [facility] Dysphagia Treatment Note NAME: Jesusita England : 1970 Patient Diagnosis(es): Patient Active Problem List Diagnosis Pneumonia due to COVID-19 virus Palliative care encounter COVID-19 Anxiety Insomnia Constipation Gastroesophageal reflux disease without esophagitis Angular cheilitis Allergies: No Known Allergies Onset Date: 06/03/2021 Oxygen Level: 5L NC Current Diet Level: Minced and moist diet with thin liquids Compensatory Techniques -Upright -Small bolus -Rest breaks if needed Pain:Being managed by RN. S: Patient seen for dysphagia therapy seated upright in bed with sister at bedside; vocal quality remains weak/hoarse. Patient alert, cooperative, and reports she is feeling better this date. O: Assess diet tolerance/ugprade trials A: Patient accepted thin liquids via small bore straw with adequate labial seal, clinically prompt swallow, and no clinical s/s concerning for airway penetration/aspiration or other pharyngeal impairments across multiple swallows. Patient accepted soft/regular solids; initial bite adequate, mastication efficient and complete. Patient revealed clinically adequate coordination of breathing/mastication without requiring rests. Patient no longer on HFNC and does not report any discomfort with mastication. Oral clearance complete. No cough, throat clear, or altered vocal quality observed post-swallow with any trials. [] Goal met [x] Progressing as expected [] Progressing slower than expected [] Medical status inhibits participation [] Goals not addressed this session [] Goals revised this session [] Unable to show any progress towards functional goals [] Progress towards functional goal is gradual / fair P: Recommend patient initiate a regular diet with thin liquids; recommend patient resume compensatory strategies for upright positioning, small bites, small sips, and respiratory breaks as needed. [employer] will continue to follow with dysphagia plan of care to ensure patient tolerance with diet advancements prior to signing off. Should patient continue to reveal limited improvements with vocal quality, may consider ENT consult for further evaluation. Time In: 1415 Total Session Time: 20 minutes A surgical mask and gloves were worn throughout this session. Electronically signed by Carley Cortes MS, JOSEFINA/SLPon 06/21/2021 at 3:01 PM * Eladia Scanlon MD - 06/21/2021 2:13 PM EDT Images from the original note were not included. [facility] - Infectious Diseases Attending Progress Note Subjective: Transitioned to floor, sister at bedside. Says she feels better and wants to work with PT Antimicrobials,Start/End Dates: vanco 06/18- Prior: Remdesivir (06/02; 06/04-06/07) Linezolid 06/16-06/18 Cefepime 06/16-06/20 OSH: Solumedrol Remdesivir 200mg IV x1 (06/02) Levaquin Vitals: Patient Vitals for the past 24 hrs: BP Temp Temp src Pulse Resp SpO2 06/21/21 1319 16 98 % 06/21/21 1018 18 97 % 06/21/21 0609 122/61 98.6 F (37 C) Temporal 93 22 97 % 06/20/21 2343 112/67 98.2 F (36.8 C) Temporal 93 24 95 % 06/20/21 2120 106/71 98.7 F (37.1 C) Temporal 101 (!) 33 98 % 06/20/21 2107 22 96 % 06/20/21 2000 97/73 97 22 100 % 06/20/21 1900 95/64 100 23 93 % 06/20/21 1800 112/66 100 30 94 % 06/20/21 1713 (!) 38 98 % 06/20/21 1700 103/67 97 30 97 % 06/20/21 1600 113/66 99.7 F (37.6 C) Temporal 95 29 100 % 06/20/21 1500 (!) 114/100 92 24 99 % Physical Exam: Gen: morbidly obese HEENT: on high flow O2 Resp: CTA Ext: edema Labs: Recent Labs 06/19/21 0252 06/19/21 1701 06/20/21 0403 06/21/21 0250 NA 142 -- 135 134* K 3.1* -- 3.3* 4.1 CL 104 -- 101 99 CO2 33* -- 31* 31* BUN 47* -- 37* 32* CREATININE 0.65 -- 0.49* 0.52 GLUCOSE 136* -- 137* 139* CALCIUM 8.4 -- 8.3* 8.3* PROT 6.2* -- 6.2* 6.5 LABALBU 3.0* -- 2.9* 3.0* BILITOT 1.0 -- 1.0 1.0 ALKPHOS 78 -- 101 149* AST 34 -- 52* 77* ALT 64* -- 69* 71* PROCAL -- 0.10* -- -- Recent Labs 07/21/21 0252 06/20/21 0403 06/21/21 0250 WBC 12.0* 11.9* 12.2* HGB 10.8* 10.4* 10.2* HCT 34.9* 32.9* 32.0* PLT 108* 112* 125* GRANULOCYTES 86.5* 82.9* 82.1* LYMPHOPCT 5.0* 7.0* 6.4* MONOPCT 7.9 7.7 9.4 LABEOS 0.6* 2.3 1.8 BASOPCT 0.0 0.1 0.3 NEUTROABS 10.4* 9.8* 10.0* Micro: Bcx 06/19 NG Resp cx 06/19 few MSSA Ucx 06/16 >100k E.coli Bcx 06/15 staph hominis 01/01 Resp cx 06/15 mod MRSA 06/12- blood cx- NGTD 06/12- pneumonia PCR panel- negative 06/12- resp cx- in process (stain with GPC pairs/ chains and yeast) 06/08- resp cx- C albicans 06/04- resp cx- rare resp pretty 06/04- pneumonia PCR panel- negative 06/04- Legionella urine Ag- negative 06/04- Strep pneumo urine Ag- negative 06/03- blood cx- negative Quantiferon- negative HIV screen- negative HBsAb- negative HBcAb total- negative HCV Ab- negative IL-6 level- 54.6 OSH: 06/02- COVID PCR + 06/02- Staph aureus PCR- + MSSA Radiography/Echo/Other: OSH: CTA chest- suboptimal to r/o PE; + infiltrates. Impression: 1. COVID-19 pneumonia with acute hypoxic respiratory failure - dx 06/02 in [facility] - sx onset 1 week prior to admission - exposed to COVID infected (dx 05/26) - unvaccinated by report - intubated (06/04), extubated 06/18 -tx Remdesivir (06/02; 06/04-06/07) and steroids 2. Elevated D-dimer 3. Mild transaminitis 4. Pancytopenia 5. Morbid obesity (BMI 73) 6. MIGUEL 7. Staph hominis bacteremia: likely line related- CVP removed, 2D echo reviewed Plan: 1. Cont vanco for staph hominis bacteremia x 7 days- end date 06/26 2. Clinically improving from COVID-19 PNA 3. Continued PT ID to sign off. More that 51% total time 25 Minutes counseling (or coordinating care) and providing discussion regarding COVID. Eladia Scanlon MD * Rubin Rm, OT - 06/21/2021 10:31 AM EDT Occupational Therapy Att this AM, with RT. * Kyung Wong, - 06/21/2021 7:36 AM EDT Images from the original note were not included. Med Team Progress Note Jesusita England : 1970(51 y.o.) Date: June 21, 2021 Med Team: C Attending: Dr. Sellers Chief Complaint: Shortness of breath Subjective: - No acute events overnight. - Currently, doing well. Having some dysphagia with minced food. Improved shortness of breath. Currently on 6 L high flow o2. Dysphagia c/f potential aspiration but [employer] following and assessing dysphagia. Review of Systems Constitutional: Negative for chills. Respiratory: Positive for cough, shortness of breath and wheezing. Cardiovascular: Positive for leg swelling. Negative for chest pain. Gastrointestinal: Negative for abdominal distention, abdominal pain, constipation, diarrhea, nauseaand vomiting. Neurological: Positive for dizziness and weakness. Negative for syncope, speech difficulty, light-headedness, numbness and headaches. Psychiatric/Behavioral: Negative for confusion and decreased concentration. Scheduled Meds: calcium gluconate IVPB 4,000 mg Intravenous Once sodium hypochlorite Irrigation Daily mineral oil-hydrophilic petrolatum Topical BID collagenase Topical Daily stomahesive in petrolatum Topical BID insulin lispro 0-12 Units Subcutaneous TID WC pantoprazole 40 mg Oral QAM AC melatonin 3 mg Oral Nightly vancomycin 2,000 mg Intravenous Q12H sennosides-docusate sodium 2 tablet Oral BID polyethylene glycol 17 g Oral BID miconazole Topical BID furosemide 40 mg Intravenous BID gabapentin 300 mg Per G Tube TID Vitamin D 2,000 Units Per G Tube Daily sodium chloride flush 10 mL Intravenous 2 times per day ipratropium-albuterol 1 ampule Inhalation 4x daily enoxaparin 40 mg Subcutaneous BID cholestyramine 1 packet Oral Daily sodium chloride flush 5-40 mL Intracatheter Q8H Continuous Infusions: dextrose sodium chloride 25 mL (06/16/21 0928) PRN meds used in last 24hrs: Tylenol 650 mg; Bisacodyl 10 mg PO, Objective: BP 122/61 Pulse 93 Temp 98.6 F (37 C) (Temporal) Resp 18 Ht 5' 5 (1.651 m) Wt (!) 408 lb4.8 oz (185.2 kg) SpO2 97% BMI 67.94 kg/m Physical Exam Constitutional: General: She is not in acute distress. Appearance: She is obese. She is ill-appearing. She is not toxic-appearing. HENT: Head: Normocephalic. Cardiovascular: Rate and Rhythm: Normal rate and regular rhythm. Heart sounds: Normal heart sounds. Pulmonary: Breath sounds: Wheezing and rhonchi present. No rales. Abdominal: General: There is no distension. Musculoskeletal: Right lower leg: Edema present. Left lower leg: Edema present. Skin: General: Skin is dry. Neurological: Mental Status: She is alert. Cranial Nerves: No cranial nerve deficit. Sensory: No sensory deficit. Psychiatric: Mood and Affect: Mood normal. Behavior: Behavior normal. Thought Content: Thought content normal. Judgment: Judgment normal. [facility] within last 24 hours Lab Results Component Value Date/Time WBC 12.2 (H) 06/21/2021 02:50 AM Hemoglobin 10.2 (L) 06/21/2021 02:50 AM Hematocrit 32.0 (L) 06/21/2021 02:50 AM Platelets 125 (L) 06/21/2021 02:50 AM MCV 74.2 (L) 06/21/2021 02:50 AM Lab Results Component Value Date/Time Sodium 134 (L) 06/21/2021 02:50 AM Potassium 4.1 06/21/2021 02:50 AM Chloride 99 06/21/2021 02:50 AM CO2 31 (H) 06/21/2021 02:50 AM BUN 32 (H) 06/21/2021 02:50 AM CREATININE 0.52 06/21/2021 02:50 AM Glucose 139 (H) 06/21/2021 02:50 AM Calcium 8.3 (L) 06/21/2021 02:50 AM Magnesium 2.2 06/21/2021 02:50 AM Phosphorus 3.4 06/21/2021 02:50 AM Lab Results Component Value Date/Time AST 77 (H) 06/21/2021 02:50 AM ALT 71 (H) 06/21/2021 02:50 AM Total Protein 6.5 06/21/2021 02:50 AM Albumin,Serum 3.0 (L) 06/21/2021 02:50 AM Total Bilirubin 1.0 06/21/2021 02:50 AM Alkaline Phosphatase 149 (H) 06/21/2021 02:50 AM Assessment and Plan: Acute hypoxic resp failure / COVID 19 PNA on ventilator- improving -Currently on 5 L high flow O2, wean down as appropriate - CXR (06-19) worsened interstitial edema, improved left basilar subsegmental atelecstasis - remdesivir course and tocilizumab 06/04 completed - completed diflucan for 7 days - duonebs 4 times daily and vitamin D supplementation - analgesia: Tylenol 650 mg - repeat BLE venous duplex negative on 06/14 - meds: decadron weaned appropriately since admission; discontinued on 06/16 - consults: palliative care, psychology, pastoral care following. - plan: may trial on NIV if hypoxemia worsening, consider BLE venous duplex (bump in covid labs though no tachy, fever, chest pain), continue lovenox BID -ordered incentive spirometry to begin building respiratory strength and open airway Ventilator acquired PNA with concurrent asymptomatic UTI - ID consulted, appreciate recs - labs: 2 BCs (positive for coag neg staph); MRSA PCR panel (negative) ; procal (wnl) ; urine culture (e.coli), resp culture (MRSA) -discontinued Cefepime per ID - Continue 6 more days of Vanc and for staph hominis bacteremia per ID - Sputum repeat: few normal respiratory pretty, positive for MSSA; negative for MRSA; Current vanc providing appropriate coverage; - BCx: no growth at day 1 Pleural effusion - improving - net balance volume status since admission - 06/19 CXR Lungs are diminished in volume.; Vascular and interstitial markings are prominent and ill-defined. Curvilinear opacities are present at the left base. Osseous structures appear intact. Conclusion(s): 1. Worsening interstitial edema. 2. Left basilar subsegmental atelectasis, improved. -?repeat CXR - plan: Lasix 40 mg now BID, Trend Cr + BUN Dysphagia -Recommend patient resume minced and moist diet with thin liquids. [employer] will continue to follow withdysphagia plan of care, and will assess with upgrade trials as patient is able. Constipation: resolved - continue bowel regimen - Senokt PO bid; Glycolax 17 g po bid - 3 bowel movements yesterday; change to PRN senokt tomorrow if continues to have BM B/l Stasis Dermatitis -aquaphor ointment bid apple to b/l LE and feet Morbid Obesity MIGUEL Asthma - palliative following, appreciate input Peripheral Neuropathy- gabapentin 300 mg TID Dysphagia -Recommend patient resume minced and moist diet with thin liquids. [employer] will continue to follow withdysphagia plan of care, and will assess with upgrade trials as patient is able. Fluids: none E: WNL N: Zofran 4 mg PRN DVT prophylaxis: lovenox 40 bid GI: protonix 40 mg bid, pepcid - Goals of Care: FULL CODE - DVT Prophylaxis: lovenox 40 q24h - creatinine clearance > 30 - GI Prophylaxis: Protonix BID - Diet: Full Liquids Associated attestation - Shashank Sellers MD - 06/21/2021 3:58 PM EDT I have discussed the care of Jesusita England with the medical student and/or resident. I have personally taken a history, examined the patient, and performed the associated medical decision making activities. I have reviewed & verified the attested documentation. Unless otherwise noted below, this documentation reflects the history, physical exam, and medical decision making that I performed myself. Please see note for my personal highlights or additions in Green. Patient to [facility] today from ICU. Today is my first day meeting Jesusita Patient seen and examined by myself at 0911 on 06/21/21 1. Acute Respiratory Failure 2/2 COVID PNA + MSSA PNA + Moderate Pulm edema/Effusions- improving. S/p remdesevir/decadron. S/p intubation from 06/04- 06/18. SCx OSH (06/02/21: MSSA). Cont duonebs QID. ContIV Lasix BID for now. Closely monitor BUN/Cr. Need CXR tomorrow. Wean oxygen as able. 2. VAP 2/2 MRSA + now MSSA again. (OSH SCx 06/02/21: MSSA. SCx 06/12: normal pretty; SCx: 06/15: MRSA - on linezolid till 06/18; SCx 06/19: MSSA - on vancomycin now per ID). Culture Sensitivities from 06/19 still pending - follow for results. ID signed off today. 3. Staph Hominis Bacteremia - s/p removed line. Currently on vancomycin through 06/26/21 per ID 4. E.Coli UTI (UCx 06/16: PanSn UTI s/p Cefepime Tx - still with original galeano in from hospital admission on 06/03/21 - remove voley today) 5. Sepsis 2/2 above - resolved 6. Rising Alk Phos - last 3 days: 78--> 101 --> 149. May need RUQ imaging if continues to rise. Remainder per residents note Pager: [phone] I spent over 51% total time of 49 minutes counseling (or coordinating care). Discussed current planof care with patient. Coordinated care with resident team. * Gisel Saleh RN - 06/21/2021 12:07 AM EDT Pt transferred to [facility]. Belongings with patient. Family notified prior to leaving from visiting. RN at bedside when transferred. * Eladia Scanlon MD - 06/20/2021 10:17 PM EDT Images from the original note were not included. [facility] - Infectious Diseases Attending Progress Note Subjective: On NC, feeling better Antimicrobials,Start/End Dates: Cefepime 06/16- vanco 06/18- Prior: Remdesivir (06/02; 06/04-06/07) Linezolid 06/16-06/18 OSH: Solumedrol Remdesivir 200mg IV x1 (06/02) Levaquin Vitals: Patient Vitals for the past 24 hrs: BP Temp Temp src Pulse Resp SpO2 Weight 06/20/21 2120 106/71 98.7 F (37.1 C) Temporal 101 (!) 33 98 % 06/20/21 2107 22 96 % 06/20/21 2000 97/73 97 22 100 % 06/20/21 1900 95/64 100 23 93 % 06/20/21 1800 112/66 100 30 94 % 06/20/21 1713 (!) 38 98 % 06/20/21 1700 103/67 97 30 97 % 06/20/21 1600 113/66 99.7 F (37.6 C) Temporal 95 29 100 % 06/20/21 1500 (!) 114/100 92 24 99 % 06/20/21 1400 82 26 98 % 06/20/21 1300 (!) 95/57 92 25 95 % 06/20/21 1200 (!) 90/55 92 30 95 % 06/20/21 1100 102/63 99.5 F (37.5 C) Temporal 92 21 97 % 06/20/21 1000 107/64 89 28 100 % 06/20/21 0955 (!) 32 97 % 06/20/21 0900 117/70 95 17 96 % 06/20/21 0805 98.5 F (36.9 C) Temporal 29 06/20/21 0800 112/69 85 29 100 % 06/20/21 0700 96 27 94 % 06/20/21 0500 102/62 82 25 93 % (!) 408 lb 4.8 oz (185.2 kg) 06/20/21 0400 119/82 97 F (36.1 C) Temporal 78 25 95 % 06/20/21 0300 111/64 80 18 96 % 06/20/21 0200 (!) 101/58 76 21 94 % 06/20/21 0100 (!) 114/56 96.5 F (35.8 C) Temporal 79 28 95 % 06/20/21 0000 (!) 106/57 76 24 99 % 06/19/21 2328 21 06/19/21 2300 110/64 82 21 98 % Physical Exam: Gen: morbidly obese HEENT: on high flow O2 Resp: CTA Ext: edema Labs: Recent Labs 06/18/21 0002 06/19/21 0252 06/19/21 1701 06/20/21 0403 NA 140 142 -- 135 K 3.3* 3.1* -- 3.3* CL 104 104 -- 101 CO2 31* 33* -- 31* BUN 59* 47* -- 37* CREATININE 0.71 0.65 -- 0.49* GLUCOSE 229* 136* -- 137* CALCIUM 8.3* 8.4 -- 8.3* PROT 6.1* 6.2* -- 6.2* LABALBU 3.1* 3.0* -- 2.9* BILITOT 0.6 1.0 -- 1.0 ALKPHOS 78 78 -- 101 AST 32 34 -- 52* ALT 86* 64* -- 69* PROCAL -- -- 0.10* -- Recent Labs 06/18/21 0002 06/19/21 0252 06/20/21 0403 WBC 11.1* 12.0* 11.9* HGB 10.9* 10.8* 10.4* HCT 34.3* 34.9* 32.9* PLT 108* 108* 112* GRANULOCYTES 84.9* 86.5* 82.9* LYMPHOPCT 6.5* 5.0* 7.0* MONOPCT 8.5 7.9 7.7 LABEOS 0.1* 0.6* 2.3 BASOPCT 0.0 0.0 0.1 NEUTROABS 9.4* 10.4* 9.8* Micro: Ucx 06/16 >100k E.coli Bcx 06/15 coag neg staph 1/2 Resp cx 06/15 mod MRSA 06/12- blood cx- NGTD 06/12- pneumonia PCR panel- negative 06/12- resp cx- in process (stain with GPC pairs/ chains and yeast) 06/08- resp cx- C albicans 06/04- resp cx- rare resp pretty 06/04- pneumonia PCR panel- negative 06/04- Legionella urine Ag- negative 06/04- Strep pneumo urine Ag- negative 06/03- blood cx- negative Quantiferon- negative HIV screen- negative HBsAb- negative HBcAb total- negative HCV Ab- negative IL-6 level- 54.6 OSH: 06/02- COVID PCR + 06/02- Staph aureus PCR- + MSSA Recent Labs 06/18/21 0002 06/19/21 0252 06/20/21 0403 CRP 20.6* 204.0* 193.5* Recent Labs 06/18/21 0002 06/19/21 0252 06/20/21 0403 DDIMER 12.05* 15.92* 17.00* Recent Labs 06/18/21 0002 06/19/21 0252 06/20/21 0403 FERRITIN 139 340* 390* Recent Labs 06/18/21 0002 06/19/21 0252 06/20/21 0403 LDH 290* 333* 328* Lines: RIJ TLC (06/02) Radiography/Echo/Other: CXR 06/17: Lines, tubes, and devices: Endotracheal tube, nasogastric tube and right central venous catheter, unchanged in position Cardiomediastinal silhouette: Heart size is within normal limits. Lungs/Pleura: Patchy left greater than right basilar opacities and suspected small left-sided pleural effusion likely improved. No pneumothorax. Osseous structures/soft tissues: Osseous structures are unchanged. No soft tissue abnormality is detected. OSH: CTA chest- suboptimal to r/o PE; + infiltrates. Impression: 1. COVID-19 pneumonia with acute hypoxic respiratory failure - dx 06/02 in [facility] - sx onset 1 week prior to admission - exposed to COVID infected (dx 05/26) - unvaccinated by report - intubated (06/04) 2. Elevated D-dimer 3. Mild transaminitis 4. Pancytopenia 5. Morbid obesity (BMI 73) 6. MIGUEL 7. Staph hominis bacteremia: likely line related- CVP removed, 2D echo reviewed Plan: 1. Cont vanco for staph hominis bacteremia x 7 days 2. Stop cefepime 3. Follow up repeat bcx More that 51% total time 25 Minutes counseling (or coordinating care) and providing discussion regarding COVID. Eladia Scanlon MD * Rocio Lopez MD - 06/20/2021 6:08 PM EDT Images from the original note were not included. Palliative Care follow up Chief Complaint: Jesusita England is a 51 y.o. female with chief complaint of COVID-19 Palliative care is actively following this patient. Assessment/Plan Assessment/Plan Palliative Care Encounter - full code - sisterMaggie ([phone]), who is RN, is primary point of contact - Radha is recovering from covid (now home), he is legal NOK (he defers to sister) - pt now extubated - met spouse at bedside - will continue to follow for ongoing monitoring of progression of dyspnea related to COVID-19 - will continue to assess patient status including oxygen requirements Ongoing counseling of patient and family regarding diagnoses of {COVID-19 including prognosticationin serious illness - overall do not anticipate ongoing palliative needs after this visit, anticipate transfer to [facility] and then transition to out rehabilitation center -please call with questions; please re-consult for change in condition COVID-19 - MSSA Co-infection - doing well since extubation yesterday - s/p toci/remdesivir - decadron -> continue per ID Angular Cheilitis -add oragel Insomnia - also c/o feeling jittery; concern for gabapentin withdrawal - resume gabapentin to prevent withdrawal syndrome, d/w Dr Boyle Constipation - bothersome to pt-->verified she is on good bowel regimen GERD -symptomatic epigastric burning - verified on PPI Anxiety -improved, pt understands today that she was likely misunderstanding her situation due to critical illness and multiple sedatives - feeling more at ease today Active Hospital Problems Diagnosis Date Noted Palliative care encounter [Z51.5] Pneumonia due to COVID-19 virus [U07.1, J12.82] 06/03/2021 Greater than 51% of time spent, total 35 minutes in counseling and coordination of care with patient or their surrogate decision maker, ICU team, RN,pt and family, primary attending Discharge planning: to be determined Patient meets criteria for general inpatient hospice care including the following: n/a, palliative patient Referrals to: none today Discussed patient and the plan of care with the other IDT membersof Palliative Care, and with Primary Attending and Floor Nurse Subjective: Subjective/Events Met with pt this AM. She appears significantly improved, is OOB in chair. Has oatmeal in front of her but states appetite is poor. Denies nausea. Does feel constipated, states she does think she has had BM for a week. Feels less anxious. Had much difficulty sleeping. Feels jittery at times. Notes she typically takes gabapentin for numbness in her feet. Denies difficulty breathing. Still coughing up some white sputum. C/o GERD sx. C/o mouth sore at side of mouth. HISTORICAL:51 year old woman with PMH HTN, morbid obesity, MIGUEL, reportedly unvaccinated for COVID, was diagnosed around 05/26 with COVID. Spent a week at home until she was admitted to [facility] in [place]. She recevied treatment there, as noted by ID, for COVID and found to have MSSAby nasal swab. For insurance reasons, she was transferred to [facility] and was intubated. She is now intubated, in the ICU, sedated. No family present -> also ill with COVID. Goals of care:Continue Current Management and To Be Determined Advance Directives: full code Surrogate: Spouse Prognosis: depends upon goals Spiritualassessment: No spiritual distress identified Bereavement and grief: To Be Determined Family Meeting: See above met with pt and spouse at bedside Objective: BP 112/66 Pulse 100 Temp 99.7 F (37.6 C) (Temporal) Resp 30 Ht 5' 5 (1.651 m) Wt (!) 408lb 4.8 oz (185.2 kg) SpO2 (!) 84% BMI 67.94 kg/m Attending Exam: Appearance: NAD, sitting OOB to chair. Voice weak Eyes: clear conjunctiva, PERRL, pupils normal size ENT: hearing normal Small oral ulcer/angular cheilitis on left side of mouth No oral thrush Neck: supple, no LAD, no thyromegaly Respiratory: breathing unlabored, lungs CTA B anteriorly without w/r/r Cardiovascular: heart RRR without m/g/r, pedal pulses palpable Gastrointestinal: abdomen soft, non-tender, non-distended, normoactive bowel sounds. No masses or hernia. Musculoskeletal: normal digits and nails without cyanosis or clubbing, normal muscle strength and tone, trace edema of BL LE Skin: warm and dry, no rash or wounds Neurologic: symmetric strength and sensation, CN II-XII intact grossly BL, no myoclonus Psychiatric: not anxious or agitated Parker Symptom Assessment Score Parker Score Pain Score 0 Tiredness Score 3 Nausea Score 0 Depression Score 0 Anxiety Score 0 Drowsiness Score 5 Anorexia Score (0= eating well, 10= not eating) 5 Wellbeing Score (10= worst sense of well-being) 0 Constipation 0 Dyspnea Score (0= no shortness of breath) 0 FLACC Scale (For Pain Assessment of the Non-Verbal Patient) N/a pt verbal Assessed by: provider. All other systems were reviewed and are negative. CurrentMedications: Inpatient medications reviewed: yes Home Medications reviewed: yes 24 Hour PRN Meds: MAR reviewed Results/Verification of Data Review Objective data reviewed: labs, images, records, medication use, vitals and chart * Rocio Lopez MD - 06/20/2021 6:07 PM EDT [facility] Palliative Care Transitions of Care Note Jesusita England : 1970 ADMIT DATE: 06/03/2021 DISCHARGE DATE: TBD PRIMARY CARE PHYSICIAN: No primary care provider on file. CODE STATUS: Full Code DISCHARGE DIAGNOSES: Active Problems: Pneumonia due to COVID-19 virus Palliative care encounter Resolved Problems: * No resolved hospital problems. * HOSPITAL COURSE: 51 year old woman with PMH HTN, morbid obesity, MIGUEL, reportedly unvaccinated for COVID, was diagnosed around 05/26 with COVID. Spent a week at home until she was admitted to [facility] in [place]. She recevied treatment there, as noted by ID, for COVID and found to have MSSA by nasal swab. For insurance reasons, she was transferred to [facility] and was intubated 06/03. She is now intubated, in the ICU, sedated. No family present -> also ill with COVID. Pt required ongoing mechanical ventilation through 06/19 when she was successfully extubated. CODE STATUS DISCUSSIONS: Full code SYMPTOM MANAGEMENT MEDICATIONS: none RECOMMENDED NEXT STEPS: Ongoing inpt medical care Anticipate transfer to convalescent care closer to home FOLLOW UP TESTING, PENDING RESULTS OR REFERRALS AT TRANSITIONAL CARE VISIT: no PENDING STUDIES: Per primary team DISPOSITION: TBD FACILITY/HOME CARE AGENCY NAME: TBD Follow up with PCP Opiate Prescribing N/a * Michelle Petty, - 06/20/2021 3:02 PM EDT ICU Liberation - Multidisciplinary Rounds A: Analgesia/Pain Management B: BOTH Spontaneous Breathing and Spontaneous Awakening Trials (SBT/SAT) C: Choice of Analgesia and Sedation D: Delirium- Assess, Treat, and Manage E: Early Mobility and Exercise F: Family Engagement and Empowerment A: Analgesia Assess Pain Level: 3 (06/20/21 1108) Score CPOT (Vent): 0 (06/17/21 1600) Patient's Stated Pain Goal: No pain (06/20/21 1100) Prevent Acetaminophen, prn Manage Pain well controlled?: Yes B: BOTH Spontaneous Breathing and Spontaneous Awakening Trials (SBT/SAT) Airway support: O2 Device: Nasal cannula (06/20/21 0955) Spontaneous Awakening Trial: Spontaneous Awakening Trial (SAT) RN Doc Absolute Contraindications present?: None (06/06/21799) Relative Contraindications present?: None (06/06/21799) Contacted Provider About Relative Contraindications?v: Yes (No sedation vacation d/t high vent settings per Dr. Hector) (06/06/21799) Did patient fail SAT?: Yes (06/06/21799) Reasons patient failed SAT: Other (comment) (high vent settings) (06/06/21799) RT Notified ready for SBT?: Patient failed SAT (06/04/21 07) Spontaneous Breathing Trial: Spontaneous Breathing Trial (SBT) RT Doc Contraindications to SBT?: FiO2 > 50%;PEEP > 10 cm H2O (06/18/21 0551) Rate Measured: 24 br/min (06/18/21 1300) Pulse: 92 (06/20/21 1200) SpO2: 95 % (06/20/21 1200) Spontaneous VT: 442 mL (06/05/21 1731) Is patient ventilated?: No. C: Choice of Analgesia and Sedation RASS Score: Alert and calm (06/19/211999) Sedation Goal: RASS: -1 to 1 Current Medications: Not Applicable Restraint Order Placed During Rounds?: NA - patient is not currently restrained D: Delirium & Diet Assess CAM-ICU Score: Negative (06/19/211999) Manage Is CAM-ICU Positive?: No Diet ADULT DIET; Dysphagia - Minced and Moist E: Early Mobility and Exercise PT/OT/Speech consults ordered as appropriate? Yes Activity Order No Activity Order Mobility Goal for Today: up to chair F: Family Engagement and Empowerment Code Status: Full Code Palliative Care Triggers?: No palliative care triggers are present Is Pall Care consulted? Yes Family Communication: Family is not currently present. Invasive Lines / Tubes / Drains Peripheral IV 06/18/21 Right Antecubital (Active) Number of days: 1 Urethral Catheter (Active) Number of days: 17 Non-Surgical Airway 06/04/21 Endo Tracheal Tube (Active) Number of days: 16 Central Line Indication: NA - patient does not have a central line Galeano Indication: Strict/Hourly I&O Does patient have a PIV in addition to a central line?: Not applicable. Patient does not have a central line Wound Care and Prevention Wound 06/09/21 Buttocks Right Stage II-Wound Etiology: Pressure Stage 2 (06/20/21 1105) Wound 06/20/21 Back Lower;Medial Unstageable-Wound Etiology: Pressure Unstageable (06/20/21 0805) Wound 06/20/21 Sacrum Stage II-Wound Etiology: Pressure Stage 2 (06/20/21 0805) Wound: Hospital Acquired Zelalem Score: Zelalem Scale Score: 15 (06/20/21 1100) Wound Care and Prevention: Wound Care is Consulted Prophylaxis DVT Prophylaxis: Pharmacologic Prophylaxis: SQ enoxaparin (Lovenox) and Intermittent pneumatic compression cuffs (SCDs) GI Prophylaxis: Proton pump inhibitor (PPI) * Janet Malone APRN - CNP - 06/20/2021 11:36 AM EDT Jesusita England is a 51 y.o. female CC: pneumonia due to covid infection Asked by Dr. Boswell to review pt's chart for potential med recommendations for insomnia. Pt admitted with complications secondary to covid infection. Extubated yesterday and in the process of weaning precedex. Pt with difficulty sleeping. Will change melatonin to scheduled and add PRN trazodone nara used if melatonin ineffective. If pt becomes agitated or insomnia is unresponsive to trazodone and melatonin could consider low dose seroquel as well. Will meet with pt tomorrow to evaluate efficacy of trazodone/melatonin for sleep and monitor for ongoing psychiatric symptom management. * Carley Cortes SLP - 06/20/2021 11:31 AM EDT Speech Language Pathology Facility/Department: [facility] ICU T3 Dysphagia Treatment Note NAME: Jesusita England : 1970 Patient Diagnosis(es): Patient Active Problem List Diagnosis Pneumonia due to COVID-19 virus Palliative care encounter COVID-19 Anxiety Allergies: No Known Allergies Onset Date: 06/03/2021 Oxygen Level: O2 Device: 6L NC Current Diet Level: Minced and moist diet with thin liquids Compensatory Techniques -Assist with feed -Small bites/sips -Slow rate/respiratory breaks Pain:Being managed by RN. S:Patient seen for dysphagia treatment seated upright in chair with breakfast tray; patient alert and cooperative; transitioned off of HFNC to NC. Patient's vocal quality remains weak. Patient reports she has been eating fine but that she has limited appetite 2/2 stomach pain. Patient agreeable to minimal trials with [employer]. O: Assess diet tolerance A: Patient accepted trials of puree and thin liquids via small bore straw; patient revealed clinically functional oral phase, prompt swallow, and no clinical s/s concerning for airway penetration/aspiration with trials of thin liquids. Patient accepted puree via tsp with adequate stripping of the spoon, complete oral clearance, and no cough, throat clear, or altered vocal quality post-swallow. Patient revealed improved ability maintaining respiratory rate throughout PO intake this date. [employer] offered patient upgrade trials; patient politely declined. Patient reports she still feels weak and with her limited appetite she would prefer to reassess upgrade trials the following date. [] Goal met [x] Progressing as expected [] Progressing slower than expected [] Medical status inhibits participation [] Goals not addressed this session [] Goals revised this session [] Unable to show any progress towards functional goals [] Progress towards functional goal is gradual / fair P: Recommend patient resume minced and moist diet with thin liquids. [employer] will continue to follow with dysphagia plan of care, and will assess with upgrade trials as patient is able. Time In: 1005 Total session time: 15 minutes A surgical mask and gloves were worn throughout this session. * Promise Davis, PT - 06/20/2021 10:21 AM EDT Physical Therapy Facility/Department: [facility] ICU T3 Initial Assessment NAME: Jesusita England : 1970 Date of Service: 06/20/2021 Discharge Recommendations: LTACH PT Equipment Recommendations Other: tbd Assessment Body structures, Functions, Activity limitations: Decreased functional mobility ;Decreased ADL status;Decreased strength;Decreased balance;Decreased endurance Assessment: Pt present with impaired mobility. Noted significant weakness and decreasd activity tolerance. Difficulty with all mobility requiring max to dependent assist. Muscle weakness on both LE, limiting funtion. Recommend LTAC. Prognosis: Fair Decision Making: Medium Complexity PT Education: Goals;PT Role;Plan of Care REQUIRES PT FOLLOW UP: Yes Activity Tolerance Activity Tolerance: Patient limited by endurance;Patient limited by fatigue Patient Diagnosis(es): There were no encounter diagnoses. has a past medical history of Allergic rhinitis, Anemia, Chronic diarrhea, GERD (gastroesophageal reflux disease), Joint pain, Morbid obesity (HCC), and MIGUEL (obstructive sleep apnea). has a past surgical history that includes Cholecystectomy; hip surgery; and Heel spur surgery. Restrictions Restrictions/Precautions Restrictions/Precautions: Fall Risk Required Braces or Orthoses?: No Position Activity Restriction Other position/activity restrictions: COVID 19- off isolation. Vision/Hearing Vision: Within Functional Limits Hearing: Within functional limits Subjective General Chart Reviewed: Yes Patient assessed for rehabilitation services?: Yes Family / Caregiver Present: No Diagnosis: Pneumonia due to COVID 19 Follows Commands: Within Functional Limits General Comment Comments: Respiratory failure due to COVID, intubated and was extubated 06/18. Now on 6 L/min NC. Subjective Subjective: Pt in bed, agree with PT treatment. Very motivated. 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 Spouse was also diagnosed with COVID-recovered. Cognition Cognition Overall Cognitive Status: [facility] Objective Observation/Palpation Posture: Fair Observation: pressure ulcer on sacral area and skin fold on lumbar area. RN(Nazia) assessing pt. Body Mechanics: increase body habitus AROM RLE (degrees) RLE General AROM: hip and knee flex 5 AROM LLE (degrees) LLE General AROM: hip and knee flex 5 Strength RLE Comment: 2-/5 grossly Strength LLE Comment: 2-/5 grossly Tone RLE RLE Tone: Normotonic Tone LLE LLE Tone: Normotonic Motor Control Gross Motor?: WF Sensation Overall Sensation Status: WF Bed mobility Rolling to Left: Moderate assistance;2 Person assistance Rolling to Right: 2 Person assistance;Moderate assistance Supine to Sit: Maximum assistance Sit to Supine: Dependent/Total Scooting: Dependent/Total Comment: Pt very weak, sat at EOB but terminated as PT deemed unsafe. Returned to supine, assist with both LE back in bed. Rolling both sides to apply new isis pad. Patient laying in left side x 2-3min. Dependenent with scooting to HOB with isis pad and 4 person. Transfers Comment: Dependent with mechanical left at this time. Deemed to be the safest at this point. Ambulation Ambulation?: No Stairs/Curb Stairs?: No Balance Posture: Fair Sitting - Static: Poor Sitting - Dynamic: Poor Standing - Static: (na) Standing - Dynamic: (na) Comments: Pt sat EOB x 5 min, but hips not level, due to significant weakness and body habitus, terminated and returned to supine. Exercises Comments: AAROM ex both LE. breathing act. Plan Plan Times per week: 5x/wk Plan weeks: 2 Current Treatment Recommendations: Strengthening, Transfer Training, Balance Training, Gait Training, Functional Mobility Training, Endurance Training Safety Devices Type of devices: Call light within reach, Left in chair (PPE) Restraints Initially in place: No G-Code OutComes Score AM-PAC Score [facility] Inpatient Mobility Raw Score : 6 (06/20/21 1021) [facility] Inpatient T-Scale Score : 23.55 (06/20/21 1021) Mobility Inpatient CMS 0-100% Score: 100 (06/20/21 1021) Mobility Inpatient CMS G-Code Modifier : CN (06/20/21 102) Goals Short term goals Time Frame for Short term goals: 2 weeks Short term goal 1: bed mobility min assist. Short term goal 2: transfers mod assist. Short term goal 3: sitting balance goodstatic standing x 2 min with min. assist Short term goal 4: ambulate 15 ft with device, mod assist. Short term goal 5: secretion clearance, IS 1500 ml and HEP independent Patient Goals Patient goals : To get stronger. Patient s Physical Therapy Plan of Care supervision is transferred to [facility] Rehab Department Physical Therapist. Therapy Time Individual Concurrent Group Co-treatment Time In 909 Time Out 0948 Minutes 38 Timed Code Treatment Minutes: 23 Minutes (FAx2) Promise Davis PT * Michelle Petty DO - 06/20/2021 7:49 AM EDT Images from the original note were not included. ICU Progress Note Jesusita England : 1970(51 y.o.) Date: June 20, 2021 Team: ICU Attending: Dr. Billy Boyle Chief Complaint: HRF 2/2 covid19 Subjective: Overnight events: Trouble sleeping overnight, given 3mg of melatonin, was able to sleep after that.Will ask psych if ok to start Trazodone for sleep. Her insulin was changed from SS to WC. Subjective: feeling tired and frustrated she is not able to have a bowel movement. Vitals: BP 102/62 , HR 85, RR 29, T 97.1, SpO2 100 high flow nasal cannula New imaging/labs: -LDH 333 > 328 -CRP: 204 > 193.5 - Hb: 10.8 > 10.4 -WBC: 12 > 11.9 -Plt: 108 > 112 PE: WNL Review of Systems Constitutional: Negative for fever. HENT: Negative for rhinorrhea and sinus pressure. Eyes: Negative for visual disturbance. Respiratory: Positive for cough. Negative for shortness of breath and wheezing. Clear sputum Cardiovascular: Positive for leg swelling. Gastrointestinal: Positive for constipation. Negative for diarrhea. Endocrine: Negative for polyuria. Genitourinary: Negative for dysuria and hematuria. Skin: Negative for color change. Psychiatric/Behavioral: Positive for sleep disturbance. Scheduled Meds: vancomycin 2,000 mg Intravenous Q12H sennosides-docusate sodium 2 tablet Oral BID polyethylene glycol 17 g Oral BID insulin lispro 0-12 Units Subcutaneous Q6H miconazole Topical BID cefepime 2,000 mg Intravenous Q8H furosemide 40 mg Intravenous BID insulin lispro 3 Units Subcutaneous Q6H [Held by provider] gabapentin 300 mg Per G Tube TID Vitamin D 2,000 Units Per G Tube Daily sodium chloride flush 10 mL Intravenous 2 times per day pantoprazole 40 mg Intravenous Daily And sodium chloride (PF) 10 mL Intravenous Daily ipratropium-albuterol 1 ampule Inhalation 4x daily enoxaparin 40 mg Subcutaneous BID cholestyramine 1 packet Oral Daily sodium chloride flush 5-40 mL Intracatheter Q8H Continuous Infusions: dexmedetomidine Stopped (06/19/21 1600) dextrose sodium chloride 25 mL (06/16/21 0928) Objective: VITALS: BP 102/62 Pulse 82 Temp 97 F (36.1 C) (Temporal) Resp 25 Ht 5' 5 (1.651 m) Wt (!) 408 lb 4.8 oz (185.2 kg) SpO2 93% BMI 67.94 kg/m CURRENT PULSE OXIMETRY: SpO2: 93 % I/O: 06/19 0701 - 06/20 0700 In: 2413 [P.O.:640; I.V.:1173] Out: 2945 [Urine:2945] Ventilator Settings: Vent Mode: PS Rate Set: 16 bmp Vt Ordered: 400 mL Pressure Support: 12 cmH20 PEEP/CPAP: 5 FiO2 : 50 % Oxygen Delivery - O2 Flow Rate (L/min): 6 L/min Invasive Lines and Dates: PIV Intubation Date: N/A General Appearance: []WDWN [x]Obese []Cachectic []Thin []ill Skin: Temperature [x]Warm []Cool Rash []Yes []No Tattoo(s) []Yes []No HEENT: Pupils round and react [x]Yes []No Sclera []Icteric []Non-Icteric Conjunctiva []Injected [x]Non-Injected Pinnae []Normal []Other Dentitian [][employer] [place] [employer] []Dentures Oral Mucosa [x]Pauline []Moist []Dry Oral ETT []Present [x]Absent Neck: Trachea midline [x]Yes []No Thyromegaly []Yes []No Crepitus []Present []Absent Jvd []Present []Absent Lungs: [x]Clear []Crackles []Wheezes []Rhonchi Respiratory effort []Labored [x]Non-Labored Heart: Rate [x]Regular []Irregular []Tachycardia []Bradycardia Rhythm [x]Regular []Irregular Murmur []Present [x]Absent Peripheral Edema []Present [x]Absent Abdomen: [x]Soft Bowel Sounds []Present []Absent [x]Tender []Non-Tender []Distended [x]Non-distended Hernia []Present []Absent Organomegaly []Present [x]Absent []Scar Extremities: Cyanosis []Present [x]Absent STEELE ([x]RUE [x]RLE [x]LUE [x]LLE) Neurologic: QUINAULT []Yes [x]No Corneal reflexes []Present []Absent Plantar reflexes []Up []Down []Absent Withdraws to tactile []Yes []No Follows Commands [x]Yes []No []Unresponsive to verbal []Cranial nerves grossly intact [x]Sensation grossly intact Psych: Alert [x]yes []no Oriented []x0 []x1 []x2 []x3 Affect [x]Normal []Flat []Agitated []Anxious []Calm []Sedated []NAD [facility] within last 72 hours BMP: Recent Labs 06/18/21 0002 06/19/21 02506/20/21 0403 NA 140 142 135 K 3.3* 3.1* 3.3* CL 104 104 101 CO2 31* 33* 31* BUN 59* 47* 37* CREATININE 0.71 0.65 0.49* CALCIUM 8.3* 8.4 8.3* MG 2.3 2.5* 2.1 PHOS 3.4 2.5 3.0 LFTS: Recent Labs 06/18/21 0002 06/19/2125106/20/21 0403 AST 32 34 52* ALT 86* 64* 69* PROT 6.1* 6.2* 6.2* LABALBU 3.1* 3.0* 2.9* BILITOT 0.6 1.0 1.0 ALKPHOS 78 78 101 Glucose: Recent Labs 06/18/21 0002 06/18/21 0009 06/18/21 0928 06/18/21 1453 06/18/217 06/19/21 0252 06/19/21 0259 06/19/21 0803 06/19/21 1304 06/19/21 2038 06/20/21 0332 06/20/21 0403 GLUCOSE 229* -- -- -- -- 136* -- -- -- -- -- 137* POCGLU -- < > 196* 216* 163* -- 137* 159* 185* 162* 139* -- < > = values in this interval not displayed. CBC: Recent Labs 06/18/21 0002 06/19/21 0252 06/20/21 0403 WBC 11.1* 12.0* 11.9* HGB 10.9* 10.8* 10.4* HCT 34.3* 34.9* 32.9* PLT 108* 108* 112* MCV 73.0* 74.7* 74.3* RDW 21.3* 22.0* 22.9* ABGs: Recent Labs 06/18/21 0619 06/19/21 0246 PHART 7.503* 7.517* [id number] 41.5 41.3 PO2ART 73.2* 53.7* [id number] 31.9* 32.7* [id number] 93.9* 87.9* FIO2A 50% 30% Lactic Acid: No results for input(s): LACTA in the last 72 hours. INR: No results for input(s): INR in the last 72 hours. pro-BNP: No results for input(s): NTPROBNP in the last 72 hours. Cardiac Injury Profile: No results for input(s): CKTOTAL, CKMB, TROPONINI in the last 72 hours. Labs in Last 3 months: Lab Results Component Value Date CHOL 124 06/03/2021 TRIG 90 06/03/2021 HDL 26 (L) 06/03/2021 LDLCHOLESTEROL 80 06/03/2021 TSH 0.869 06/03/2021 VITD25 19 (L) 06/03/2021 INR 1.0 06/03/2021 NTPROBNP 1,248 (H) 06/03/2021 LABA1C 6.1 (A) 06/03/2021 Imaging: CXR 1. Worsening interstitial edema. 2. Left basilar subsegmental atelectasis, improved. Cultures: BCX and sputum cx pending Assessment and Plan: Active Problems: Pneumonia due to COVID-19 virus Palliative care encounter COVID-19 Anxiety Resolved Problems: * No resolved hospital problems. * Acute hypoxic resp failure 2/2 COVID 19 PNA on ventilator- improving -Currently on high flow O2, wean down as appropriate - CXR (06-19) worsened interstitial edema, improved left basilar subsegmental atelecstasis - remdesivir course and tocilizumab 06/04 completed - completed diflucan for 7 days - duonebs 4 times daily and vitamin D supplementation - analgesia/sedation: fentanyl, propofol - repeat BLE venous duplex negative on 06/14 - meds: decadron weaned appropriately since admission - consults: palliative care, psychology, pastoral care following. - plan: may trial on NIV if hypoxemia worsening, consider BLE venous duplex (bump in covid labs though no tachy, fever, chest pain), continue lovenox BID - dispo: stable for floor once O2 recs met Ventilator acquired PNA with concurrent asymptomatic UTI - ID consulted, appreciate recs - labs: 2/2 BCs (positive for coag neg staph); MRSA PCR panel (negative) ; procal (wnl) ; urine culture (e.coli), resp culture (MRSA) - Continue Vanc and cefepime for staph hominis bacteremia - Sputum repeat BCx pending Pleural effusion - moderate/improving - net balance volume status since admission - CXR: pending - plan: Lasix 40 mg now BID, Trend Cr + BUN (stable). Constipation: - bowel regimen ordered -consider KUB if no stools with new diet Morbid Obesity MIGUEL Asthma - currently on ventilator - palliative following, appreciate input Fluids: none E: repleated K N: Minced, moist diet DVT prophylaxis: lovenox 40 bid GI: protonix 40 mg daily, pepcid Associated attestation - Jeffrey Boyle MD - 06/20/2021 7:40 PM EDT I reviewed the history, the documented findings, and performed a physical exam of the patient. I agree with Dr. Petty' assessment, and we discussed the management of the patient. See orders. Unlabored. On 5LNC. No thrush. Up to chair earlier today. Continue bowel regimen. Ok for floor. * Eladia Scanlon MD - 06/19/2021 10:42 PM EDT Images from the original note were not included. [facility] - Infectious Diseases Attending Progress Note Subjective: On high flow- more awake- moving upper extremities Antimicrobials,Start/End Dates: Cefepime 06/16- vanco 06/18- Prior: Remdesivir (06/02; 06/04-06/07) Linezolid 06/16-06/18 OSH: Solumedrol Remdesivir 200mg IV x1 (06/02) Levaquin Vitals: Patient Vitals for the past 24 hrs: BP Temp Temp src Pulse Resp SpO2 Height Weight 06/19/21 2200 108/69 82 22 95 % 06/19/21 2100 116/65 84 25 97 % 06/19/21 2000 106/66 98 F (36.7 C) Temporal 84 23 96 % 06/19/21 1900 90/79 79 21 98 % 06/19/21 1824 19 98 % 06/19/21 1810 20 100 % 06/19/21 1800 113/69 65 19 99 % 06/19/21 1700 101/65 62 23 100 % 06/19/21 1600 106/63 98 F (36.7 C) Temporal 64 24 97 % 06/19/21 1500 (!) 101/59 66 (!) 33 93 % 06/19/21 1421 24 99 % 06/19/21 1400 96/62 59 25 98 % 06/19/21 1300 113/67 62 26 100 % 06/19/21 1237 24 98 % 06/19/21 1217 5' 5 (1.651 m) 06/19/21 1200 101/68 97.6 F (36.4 C) Temporal 65 (!) 40 98 % 06/19/21 1120 24 100 % 06/19/21 1100 (!) 128/58 62 21 100 % 06/19/21 1000 110/64 63 24 98 % 06/19/21 0900 109/67 62 27 96 % 06/19/21 0811 18 95 % 06/19/21 0800 (!) 101/59 98.6 F (37 C) Temporal 57 28 (!) 88 % 06/19/21 0700 (!) 95/59 58 (!) 34 91 % 06/19/21 0600 (!) 104/91 58 16 91 % 06/19/21 0500 98/60 59 25 (!) 89 % 06/19/21 0400 105/62 60 26 94 % 06/19/21 0358 (!) 409 lb 8 oz (185.7 kg) 06/19/21 0300 (!) 103/56 98.3 F (36.8 C) Temporal 61 30 91 % 06/19/21 0248 27 90 % 06/19/21 0200 112/65 61 (!) 31 91 % 06/19/21 0100 104/71 63 23 94 % 06/19/21 0000 (!) 99/59 60 30 90 % 06/18/21 2300 101/63 99 F (37.2 C) Temporal 61 (!) 34 90 % Physical Exam: Gen: morbidly obese HEENT: on high flow O2 Resp: CTA Ext: edema Labs: Recent Labs 06/17/21 0003 06/18/21 0002 06/19/21 0252 06/19/21 1701 NA 142 140 142 -- K 3.7 3.3* 3.1* -- CL 105 104 104 -- CO2 31* 31* 33* -- BUN 56* 59* 47* -- CREATININE 0.88 0.71 0.65 -- GLUCOSE 258* 229* 136* -- CALCIUM 8.6 8.3* 8.4 -- PROT 6.4 6.1* 6.2* -- LABALBU 3.3* 3.1* 3.0* -- BILITOT 0.7 0.6 1.0 -- ALKPHOS 87 78 78 -- AST 55* 32 34 -- ALT 102* 86* 64* -- PROCAL -- -- -- 0.10* Recent Labs 06/17/21 0003 06/18/21 0002 06/19/21 0252 WBC 12.0* 11.1* 12.0* HGB 11.3* 10.9* 10.8* HCT 36.3 34.3* 34.9* PLT 148 108* 108* GRANULOCYTES 90.1* 84.9* 86.5* LYMPHOPCT 4.7* 6.5* 5.0* MONOPCT 5.1 8.5 7.9 LABEOS 0.0* 0.1* 0.6* BASOPCT 0.1 0.0 0.0 NEUTROABS 10.8* 9.4* 10.4* Micro: Ucx 06/16 >100k E.coli Bcx 06/15 coag neg staph 1/2 Resp cx 7/17 mod MRSA 06/12- blood cx- NGTD 06/12- pneumonia PCR panel- negative 06/12- resp cx- in process (stain with GPC pairs/ chains and yeast) 06/08- resp cx- C albicans 06/04- resp cx- rare resp pretty 06/04- pneumonia PCR panel- negative 06/04- Legionella urine Ag- negative 06/04- Strep pneumo urine Ag- negative 06/03- blood cx- negative Quantiferon- negative HIV screen- negative HBsAb- negative HBcAb total- negative HCV Ab- negative IL-6 level- 54.6 OSH: 06/02- COVID PCR + 06/02- Staph aureus PCR- + MSSA Recent Labs 06/17/21 0003 06/18/21 0002 06/19/21 0252 CRP 7.8* 20.6* 204.0* Recent Labs 06/17/21 0003 06/18/21 0002 06/19/21 0252 DDIMER 13.33* 12.05* 15.92* Recent Labs 06/17/21 0003 06/18/21 0002 06/19/21 0252 FERRITIN 209 139 340* Recent Labs 06/17/21 0003 06/18/21 0002 06/19/21 0252 LDH 374* 290* 333* Lines: RIJ TLC (06/02) Radiography/Echo/Other: CXR 06/17: Lines, tubes, and devices: Endotracheal tube, nasogastric tube and right central venous catheter, unchanged in position Cardiomediastinal silhouette: Heart size is within normal limits. Lungs/Pleura: Patchy left greater than right basilar opacities and suspected small left-sided pleural effusion likely improved. No pneumothorax. Osseous structures/soft tissues: Osseous structures are unchanged. No soft tissue abnormality is detected. OSH: CTA chest- suboptimal to r/o PE; + infiltrates. Impression: 1. COVID-19 pneumonia with acute hypoxic respiratory failure - dx 06/02 in [facility] - sx onset 1 week prior to admission - exposed to COVID infected (dx 05/26) - unvaccinated by report - intubated (06/04) 2. Elevated D-dimer 3. Mild transaminitis 4. Pancytopenia 5. Morbid obesity (BMI 73) 6. MIGUEL 7. Staph hominis bacteremia: likely line related- CVP removed Plan: 1. Cont vanco for staph hominis bacteremia 2. Cont cefepime 3. Follow up repeat bcx More that 51% total time 25 Minutes counseling (or coordinating care) and providing discussion regarding COVID. Eladia Scanlon MD * Tori Milton, RD, LD - 06/19/2021 1:24 PM EDT Comprehensive Nutrition Assessment Type and Reason for Visit: Reassess Nutrition Recommendations/Plan: 1. Pt is currently ordered a Minced and Moist Diet/Thin Liquids per [employer] recommendations. Pt has not yet had a solid meal tray, nursing ordered a tray and it is on its way up shortly. Pt excited to be off vent and try to eat. Once tolerance is established on oral diet can consider initiation of CHO Controlled Diet restrictions (45gm CHO/meal) to promote healthy weight loss. 2. Will continue to monitor PO intake for adequacy 3. Will monitor need for ONS such as Ensure HP vs Ensure Max if PO intake is compromised once established. 4. Pt voices during assessment that she 'wants to be better', and she wants to know how to eat better, pt stating 'do normal people really only eat an apple for lunch', as pt just extubated yesterday(after 2 weeks on the vent) RD feels that extensive education is not appropriate at this time, briefly discussed with pt portion control/sizes but will continue to provide more education throughout admit. No family was present at bedside at time of assessment today. 5. Will continue to monitor weight changes, labs and overall nutrition status 6. RD will continue to follow up weekly Nutrition Assessment: pt remains in ICU, pt was extubated yesterday 06/18 (originally intubated 06/04)to HFNC, pt remains on HFNC at time of assessment today, pt is out of COVID isolation as well as ofyeerday, [employer] completed assessment this morning with minced and moist/thin liquids recommendations, ID following- plans to continue steroids, pt is s/p remdesivir and toci x1 (06/04), plans to continue linezolid for MRSA in respiratory cx and cefepime for E.coli in urine, Palliative Care remains following, spoke with pt in room today- pt speaks very softly and is hard to understand at times, pt states that she is happy to be off of the vent, discussed with pt current diet order per [employer] recommendations and need for softer foods due to prolonged period of time on the vent, pt denies food alleriges, pt CBW 409# via bedscale and admit weight was 418#, pt voices during assessment that she 'wants to be better', and she wants to know how to eat better, pt stating 'do normal people really only eatan apple for lunch', as pt just extubated yesterday (after 2 weeks on the vent) RD feels that extensive education is not appropriate at this time, briefly discussed with pt portion control/sizes but will continue to provide more education throughout admit as pt is improved, pt looking forward to trying to eat something for lunch today- RN ordered a standard tray Malnutrition Assessment: Malnutrition Status: At risk for malnutrition (Comment) (pt is now extubated after being on the vent 2 weeks, has not yet had a solid meal but [employer] cleared for minced and moist today, pt weight trending down during admit, could potentially be fluid related vs EN not exceeding her needs, no physical signs) Nutrition Related Findings: Zelalem = 13, right buttocks stage 2, -I/O, hypoactive bowel sounds, BM 06/06- last documented, generalized +1 non-pitting and BLE +2 pitting edema Wounds: Pressure Injury, Stage II Current Nutrition Therapies: ADULT DIET; Dysphagia - Minced and Moist Anthropometric Measures: Height: 5' 5 (165.1 cm) Current Body Weight: 409 lb 6.3 oz (185.7 kg) (06/19) Admission Body Weight: 418 lb (189.6 kg) (no method 06/03) Usual Body Weight: 418 lb (189.6 kg) (05/31/20 per [facility]) [place] Body Weight: 125 lbs; % [place] Body Weight 327.5 % BMI: 68.1 Adjusted Body Weight: ; No Adjustment BMI Categories: Obese Class 3 (BMI 40.0 or greater) Nutrition Interventions: Food and/or Nutrient Delivery: Continue Current Diet Nutrition Education/Counseling: Education not appropriate (briefly discussed with pt portion control but as pt just extubated yesterday after being on the vent 2 weeks extensive education deferred until pt is more stable and tolerating oral intake) Coordination of Nutrition Care: Continue to monitor while inpatient Goals: PO intake will be >50% at meals Nutrition Monitoring and Evaluation: Behavioral-Environmental Outcomes: None Identified Food/Nutrient Intake Outcomes: Food and Nutrient Intake, Diet Advancement/Tolerance Physical Signs/Symptoms Outcomes: Biochemical Data, Chewing or Swallowing, GI Status, Constipation,Fluid Status or Edema, Hemodynamic Status, Weight, Skin, Nutrition Focused Physical Findings Discharge Planning: Too soon to determine Contact: pager [phone] or Perfect[employer] * Elijah Allred MD - 06/19/2021 10:47 AM EDT ICU Liberation - Multidisciplinary Rounds A: Analgesia/Pain Management B: BOTH Spontaneous Breathing and Spontaneous Awakening Trials (SBT/SAT) C: Choice of Analgesia and Sedation D: Delirium- Assess, Treat, and Manage E: Early Mobility and Exercise F: Family Engagement and Empowerment A: Analgesia Assess Pain Level: 0 (06/18/21 1600) Score CPOT (Vent): 0 (06/17/21 1600) Patient's Stated Pain Goal: No pain (06/13/21 0400) Prevent Continuous Drips: Fentanyl Manage Pain well controlled?: Yes B: BOTH Spontaneous Breathing and Spontaneous Awakening Trials (SBT/SAT) Airway support: O2 Device: Heated high flow cannula (06/19/21 0811) Spontaneous Awakening Trial: Spontaneous Awakening Trial (SAT) RN Doc Absolute Contraindications present?: None (06/06/21799) Relative Contraindications present?: None (06/06/21799) Contacted Provider About Relative Contraindications?v: Yes (No sedation vacation d/t high vent settings per Dr. Hector) (06/06/21799) Did patient fail SAT?: Yes (06/06/21799) Reasons patient failed SAT: Other (comment) (high vent settings) (06/06/21799) RT Notified ready for SBT?: Patient failed SAT (06/04/21732) Spontaneous Breathing Trial: Spontaneous Breathing Trial (SBT) RT Doc Contraindications to SBT?: FiO2 > 50%;PEEP > 10 cm H2O (06/18/21 0551) Rate Measured: 24 br/min (06/18/21 1300) Pulse: 63 (06/19/21 1000) SpO2: 98 % (06/19/21 1000) Spontaneous VT: 442 mL (06/05/21 1731) Is patient ventilated?: No. C: Choice of Analgesia and Sedation RASS Score: Alert and calm (06/19/21 0800) Sedation Goal: RASS: -1 to 1 Current Medications: Dexmedetomidine and N/A Restraint Order Placed During Rounds?: Yes D: Delirium & Diet Assess CAM-ICU Score: Negative (06/19/21 0800) Manage Is CAM-ICU Positive?: No Diet Diet NPO ADVANCED this AM to MINCED & MOIST with THIN LIQUIDS via speech team who is following E: Early Mobility and Exercise PT/OT/Speech consults ordered as appropriate? NA Activity Order No Activity Order Mobility Goal for Today: strict bedrest F: Family Engagement and Empowerment Code Status: Full Code Palliative Care Triggers?: COVID-19 Is Pall Care consulted? Yes Family Communication: Family is not currently present. Invasive Lines / Tubes / Drains CVC Triple Lumen 06/03/21 Right Internal jugular (Active) Number of days: 13 NG/OG/NJ/NE Tube Orogastric Center mouth (Active) Number of days: 13 Urethral Catheter (Active) Number of days: 13 Non-Surgical Airway 06/04/21 Endo Tracheal Tube (Active) Number of days: 13 ETT (adult) (Active) Number of days: 13 Arterial Line 06/04/21 Right Radial (Active) Number of days: 13 Central Line Indication: Vesicant infusions/medications at high risk of causing extravasation [place] Indication: Strict/Hourly I&O Does patient have a PIV in addition to a central line?: Yes - PIV must remain in due to need for additional access Wound Care and Prevention Wound 06/09/21 Buttocks Right Stage II-Wound Etiology: Pressure Stage 2 (06/19/21 0800) Wound: NA - patient does not have wound(s) Zelalem Score: Zelalem Scale Score: 13 (06/19/21 0728) Wound Care and Prevention: NA - patient does not meet criteria Prophylaxis DVT Prophylaxis: Pharmacologic Prophylaxis: SQ enoxaparin (Lovenox) GI Prophylaxis: Proton pump inhibitor (PPI) * Carley Cortes SLP - 06/19/2021 10:14 AM EDT Speech Language Pathology Facility/Department: [facility] ICU T3 CLINICAL BEDSIDE SWALLOW EVALUATION NAME: Jesusita England : 1970 ADMISSION DATE: 06/03/2021 ADMITTING DIAGNOSIS: has Pneumonia due to COVID-19 virus; Palliative care encounter; COVID-19; and Anxiety on their problem list. ONSET DATE: 06/03/2021 Recent Chest Xray/CT of Chest: Report PORTABLE CHEST 06/15/2021 11:13 PM Clinical indication: Increased work of breathing Comparison: 6:30 AM 06/15/2021. Endotracheal tube tip projects about 4 cm above the gertrudis. Oral gastric tube tip projects in the body of the stomach. Right internal jugular catheter tip projects at the junction of superior vena cava and right atrium. Cardiac silhouette is unchanged in size. Lung volumes are shallow with mild atelectasis at both lung bases, left worse than right but similar to the earlier exam. There may be a small pleural effusion on the left. IMPRESSION: Basilar atelectasis and possiblesmall left pleural effusion without significant change Dictated: 06/15/2021 11:38 pm Date of Eval: 06/19/2021 Evaluating Therapist: JOSE Rosa Current Diet level: Current Diet : NPO Current Liquid Diet : NPO Primary Complaint Patient Complaint: Chief complaint: SOB s/p Covid Pain: Pain Assessment Pain Assessment: 0-10 Pain Level: 0 Patient's Stated Pain Goal: No pain RASS Score: Alert and calm Pain Assessment/FLACC Pain Rating: FLACC (rest) - Face: no particular expression or smile Pain Rating: FLACC (rest) - Legs: normal position or relaxed Pain Rating: FLACC (rest) - Activity: lying quietly, normal position, moves easily Pain Rating: FLACC (rest) - Cry: no cry (awake or asleep) Pain Rating: FLACC (rest) - Consolability: content, relaxed Score: FLACC (rest): 0 Pain Rating: FLACC (activity) - Face: occasional grimace or frown, withdrawn, disinterested Pain Rating: FLACC (activity) - Legs: normal position or relaxed Pain Rating: FLACC (activity): lying quietly, normal position, moves easily Pain Rating: FLACC (activity) - Cry: no cry (awake or asleep) Pain Rating: FLACC (activity) - Consolability: content, relaxed Score: FLACC (activity): 1 Reason for Referral Jesusita England was referred for a bedside swallow evaluation to assess the efficiency of her swallowfunction, identify signs and symptoms of aspiration and make recommendations regarding safe dietaryconsistencies, effective compensatory strategies, and safe eating environment. Per Critical Care Notes: Brief HPI: 51F hx morbid obesity, MIGUEL, asthma admitted 06/03 for covid PNA, now day 15 mechanical ventilation ondecadron & s/p remdesevir/toci and with IV lasix for improving/stabilizing pleural effusion on CxR. Has passed SBTs in recent days but is s/p failed cuff leak 06/15 with newly acquired LL infiltrate, which ID is following (now day 3 of cefepime + linezolid). Current plan is to wean sedation/vent/steroids with intent to extubate if able. Of note, this patient is officially out of covid isolation on 06/19. Overnight/AM: - afebrile overnight. Negative for calf pain, chest pain, worsening SOB. - vent asynchrony stable/improving however pt is with mild hypoxemia/alkalemia, settings currently PEEP 10, FiO2 50% - comfortable & following commands with agitation stabilized on fentanyl (150), precedex (0.4),and lower dose of propofol (45 --> 10) Patient intubated 06/08 and extubated 06/18. RN reports patient has hoarse vocal quality but strong cough and good/clear lung sounds this date. Impression Dysphagia Impression : Patient clinically presents with mild oral dysphagia primarily impacted by current respiratory status/requirements. Recommend patient initiate a minced and moist diet with thinliquids. Please assist/total feed. Recommend positioning patient upright and utilizing small bites and sips. [employer] will initiate a dysphagia plan of care and continue to follow. Treatment Plan Requires [employer] Intervention: Yes Duration/Frequency of Treatment: 3x/week for 2 weeks Recommended Diet and Intervention Diet Solids Recommendation: Dysphagia Minced and Moist (Dysphagia II) Liquid Consistency Recommendation: Thin Recommended Form of Meds: Whole with water Recommendations: Dysphagia treatment Compensatory Swallowing Strategies Compensatory Swallowing Strategies: Upright as possible for all oral intake;Small bites/sips;Assistfeed;Total feed Treatment/Goals Long-term Goals Timeframe for Long-term Goals: 2 weeks Dysphagia Goals: The patient will tolerate recommended diet without observed clinical signs of aspiration;The patient will tolerate regular consistency solids 10/10. General Chart Reviewed: Yes Behavior/Cognition: Alert;Cooperative;Pleasant mood Temperature Spikes Noted: No Respiratory Status: O2 via nasual cannula O2 Device: High flow nasal cannula Liters of Oxygen: (40L) Communication Observation: Functional Follows Directions: Simple Dentition: Adequate Patient Positioning: Upright in bed Baseline Vocal Quality: Hoarse Volitional Cough: Strong Prior Dysphagia History: Patient denies any history significant for dysphagia; chart review revealsno prior assessments or intervention. Consistencies Administered: Ice Chips;Thin - teaspoon;Thin - cup;Thin - straw;Dysphagia Pureed (Dysphagia I);Dysphagia Minced and Moist (Dysphagia II);Dysphagia Soft and Bite-Sized (Dysphagia III) Vision/Hearing Vision Vision: Within Functional Limits Hearing Hearing: Within functional limits Oral Motor Deficits Oral/Motor Oral Motor: Within functional limits Oral Phase Dysfunction Oral Phase Oral Phase: WFL Oral Phase Oral Phase - Comment: Patient revealed adequate mastication and complete oral clearance; reports that she feels mastication is somewhat difficult/taxing as she can sense the flow of oxygen from her HFNC. Achieves efficient mastication without increased RR or work of breathing. Mastication/AP transit of minced and moist trials achieved without notable respiratory breaks. Indicators of Pharyngeal Phase Dysfunction Pharyngeal Phase Pharyngeal Phase: WFL Pharyngeal Phase Pharyngeal: Strong, dry cough at baseline. No cough, throat clear, or altered vocal quality observed during or post-swallow with any trial presentations. Prognosis Prognosis Prognosis for safe diet advancement: good Individuals consulted Consulted and agree with results and recommendations: Patient;RN Education Patient Education: Patient educated on results of clinical swallow evaluation and diet recommendations. Patient Education Response: Verbalizes understanding Safety Devices in place: Yes Type of devices: Call light within reach;Nurse notified Therapy Time ATTENDANT [employer] Individual Minutes Time In: 904 Time Out: 924 Minutes: 20 ATTENDANT [employer] Total Treatment Time Total Treatment Time: 20 A surgical mask and gloves were worn throughout this session. Carley Cortes MS, CCC/ATTENDANT [employer] 06/19/2021 10:14 AM * Elijah Allred MD - 06/19/2021 7:21 AM EDT Images from the original note were not included. ICU Progress Note Jesusita England : 1970(51 y.o.) Date: June 19, 2021 Team: ICU Attending: Dr. Boyle Chief Complaint: shortness of breath following recent covid exposure Subjective: Brief HPI: 51F hx morbid obesity, MIGUEL, asthma admitted 06/03 for covid PNA, now day 16 ICU (15 days mech ventilation, extubated 06/18) s/p remdesevir/toci/decadron and with IV lasix for improving/stabilizing pleural effusion on CxR. Extubated yesterday, with ID on board for COVID 19 (out of isolation yesterday) and newly acquired LL infiltrate (now day 4 of cefepime + linezolid). Psychology, pastoral, and speech all on board as pt is day 2 extubated on high flow Overnight/AM: - afebrile overnight. Negative for calf pain, chest pain, worsening SOB. - extubated satting mid 90s on 65% FiO2 HHFNC. She is comfortable & conversational. No acute events or complaints. Review of Systems Unable to perform ROS: Intubated Scheduled Meds: calcium gluconate IVPB 2,000 mg Intravenous Once [Held by provider] sennosides-docusate sodium 2 tablet Oral BID [Held by provider] polyethylene glycol 17 g Oral BID dexamethasone 4 mg Intravenous Once insulin lispro 0-12 Units Subcutaneous Q6H miconazole Topical BID linezolid 600 mg Intravenous Q12H cefepime 2,000 mg Intravenous Q8H furosemide 40 mg Intravenous BID insulin lispro 3 Units Subcutaneous Q6H [Held by provider] gabapentin 300 mg Per G Tube TID [Held by provider] Vitamin D 2,000 Units Per G Tube Daily sodium chloride flush 10 mL Intravenous 2 times per day pantoprazole 40 mg Intravenous Daily And sodium chloride (PF) 10 mL Intravenous Daily ipratropium-albuterol 1 ampule Inhalation 4x daily enoxaparin 40 mg Subcutaneous BID [Held by provider] cholestyramine 1 packet Oral Daily sodium chloride flush 5-40 mL Intracatheter Q8H Continuous Infusions: dexmedetomidine 0.5 mcg/kg/hr (06/19/21 0308) dextrose sodium chloride 25 mL (06/16/21 0928) PRN meds used in last 24hrs: none Objective: VITALS: BP (!) 104/91 Pulse 58 Temp 98.3 F (36.8 C) (Temporal) Resp 16 Ht 5' 5 (1.651 m) Wt (!) 409 lb 8 oz (185.7 kg) SpO2 91% BMI 68.14 kg/m CURRENT PULSE OXIMETRY: SpO2: 91 % I/O: 06/18 701 - 06/19 07 In: 2068.3 [I.V.:2068.3] Out: 2350 [Urine:2350] Ventilator Settings: Vent Mode: PS Rate Set: 16 bmp Vt Ordered: 400 mL Pressure Support: 12 cmH20 PEEP/CPAP: 5 FiO2 : 68 % Oxygen Delivery - O2 Flow Rate (L/min): 30 L/min Invasive Lines and Dates: CVC Triple Lumen 06/03/21 Right Internal jugular 06/03/21 NG/OG/NJ/NE Tube Orogastric Center mouth 06/04/21 Urethral Catheter 06/03/21 Arterial Line 06/04/21 Right Radial Intubation Date: 06/04/21 General Appearance: []WDWN [x]Obese []Cachectic []Thin []ill Skin: Temperature [x]Warm []Cool Rash []Yes []No Tattoo(s) []Yes []No HEENT: Pupils round and react [x]Yes []No Sclera []Icteric []Non-Icteric Conjunctiva []Injected []Non-Injected Pinnae []Normal []Other Dentitian [][employer] [place] Teeth []Dentures Oral Mucosa []Pauline []Moist []Dry Oral ETT [x]Present []Absent Neck: Trachea midline [x]Yes []No Thyromegaly []Yes [x]No Crepitus []Present [x]Absent Jvd []Present [x]Absent Lungs: []Clear []Crackles [x]Wheezes []Rhonchi Respiratory effort []Labored []Non-Labored Heart: Rate [x]Regular []Irregular []Tachycardia []Bradycardia Rhythm [x]Regular []Irregular Murmur []Present [x]Absent Peripheral Edema []Present [x]Absent Abdomen: [x]Soft Bowel Sounds [x]Present []Absent []Tender [x]Non-Tender []Distended []Non-distended Hernia []Present []Absent Organomegaly []Present []Absent []Scar Extremities: Cyanosis []Present []Absent STEELE ([]RUE []RLE []LUE []LLE) Neurologic: QUINAULT []Yes []No Corneal reflexes []Present []Absent Plantar reflexes []Up []Down []Absent Withdraws to tactile [x]Yes []No Follows Commands [x]Yes []No []Unresponsive to verbal []Cranial nerves grossly intact []Sensation grossly intact Psych: Alert [x]yes []no Oriented []x0 []x1 []x2 []x3 Affect []Normal []Flat []Agitated []Anxious []Calm [x]Sedated []NAD Select Labs within last 72 hours BMP: Recent Labs 06/17/21 0003 06/18/21 0002 06/19/21 0252 NA 142 140 142 K 3.7 3.3* 3.1* CL 105 104 104 CO2 31* 31* 33* BUN 56* 59* 47* CREATININE 0.88 0.71 0.65 CALCIUM 8.6 8.3* 8.4 MG 2.5* 2.3 2.5* PHOS 4.1 3.4 2.5 LFTS: Recent Labs 06/17/21 0003 06/18/21 0002 06/19/21 0252 AST 55* 32 34 ALT 102* 86* 64* PROT 6.4 6.1* 6.2* LABALBU 3.3* 3.1* 3.0* BILITOT 0.7 0.6 1.0 ALKPHOS 87 78 78 Glucose: Recent Labs 06/17/21 0003 06/17/21 0007 06/17/21 1231 06/17/21 1847 06/18/21 0002 06/18/21 0009 06/18/21 0618 06/18/21 0928 06/18/21 1453 06/18/217 06/19/21 0252 06/19/21 0259 GLUCOSE 258* -- -- -- 229* -- -- -- -- -- 136* -- POCGLU -- < > 268* 239* -- 205* 192* 196* 216* 163* -- 137* < > = values in this interval not displayed. CBC: Recent Labs 06/17/21 0003 06/18/21 0002 06/19/21 0252 WBC 12.0* 11.1* 12.0* HGB 11.3* 10.9* 10.8* HCT 36.3 34.3* 34.9* PLT 148 108* 108* MCV 74.0* 73.0* 74.7* RDW 21.7* 21.3* 22.0* ABGs: Recent Labs 06/18/21 0619 06/19/21 0246 PHART 7.503* 7.517* [id number] 41.5 41.3 PO2ART 73.2* 53.7* [id number] 31.9* 32.7* [id number] 93.9* 87.9* FIO2A 50% 30% Lactic Acid: No results for input(s): LACTA in the last 72 hours. INR: No results for input(s): INR in the last 72 hours. pro-BNP: No results for input(s): NTPROBNP in the last 72 hours. Cardiac Injury Profile: No results for input(s): CKTOTAL, CKMB, TROPONINI in the last 72 hours. Labs in Last 3 months: Lab Results Component Value Date CHOL 124 06/03/2021 TRIG 90 06/03/2021 HDL 26 (L) 06/03/2021 LDLCHOLESTEROL 80 06/03/2021 TSH 0.869 06/03/2021 VITD25 19 (L) 06/03/2021 INR 1.0 06/03/2021 NTPROBNP 1,248 (H) 06/03/2021 LABA1C 6.1 (A) 06/03/2021 Imaging: CXR 06/15 Frontal portable chest view shows left basilar atelectasis/infiltrate and probably small pleural effusion, not significantly changed from last exam. There is now increased right basilar infiltrates. The heart is borderline enlarged. Tracheal and enteric tubes and right IJ catheter are similar to prior. There is no mediastinal widening or other significant interval change. Cultures: No new cx Assessment and Plan: Active Problems: Pneumonia due to COVID-19 virus Palliative care encounter COVID-19 Anxiety Resolved Problems: * No resolved hospital problems. * Acute hypoxic resp failure 2/2 COVID 19 PNA on ventilator- improving - intubated since 06/04, ACVC rate 24, TV 400, PIP 27, PEEP 10, FiO2 60 (higher peep since 06/15) - remdesivir course and tocilizumab 06/04 completed - completed diflucan for 7 days, done - duonebs 4 times daily and vitamin D supplementation - analgesia/sedation: fentanyl, propofol - repeat BLE venous duplex negative on 06/14 - last ABG: [7.52 / 41 / 54 / 33 / 88%] - meds: decadron weaned appropriately since admission, last day today (4 g). - consults: palliative care, psychology, pastoral care following. Have also got PTOT + speech now. - plan: may trial on NIV if hypoxemia worsening, consider BLE venous duplex (bump in covid labs though no tachy, fever, chest pain), continue lovenox BID - dispo: stable for floor once O2 recs met Ventilator acquired PNA with concurrent asymptomatic UTI - fever 103.7 on (06/15) which responded well to tylenol/cooling and has been controlled - CxR (06/16): LLL patchy infiltrate redemonstrated (initially seen 06/15) with L>R basilar opacities - ID consulted, appreciate recs - labs: 2/2 BCs (positive for coag neg staph); MRSA PCR panel (negative) ; procal (wnl) ; urine culture (e.coli), resp culture (MRSA) - abx: linezolid + cefepime initiated 06/16 - plan: f/u ID recs, CxR, cultures, procal (repeat sputum culture sent earlier given increased production + ?worsening infiltrate 06/18) Pleural effusion - moderate/improving - at this time, does not appear to require tap. Will continue to follow. - net balance volume status since admission - imaging: CxR 06/18 left bibasilar opacity stable/slightly increased (consolidation vs atelectasis vs pleur effusion) - plan: Lasix 40 mg now BID (from once daily since 06/14). Trend Cr + BUN (stable). Constipation: - passing flatus - bowel regimen ordered, consider KUB if no stools with new diet post extubation Hypernatremia - resolved - net negative 2.5L since admission - water flushes @250 ml, now q8 (from q4) Morbid Obesity MIGUEL Asthma - currently on ventilator - palliative following, appreciate input Resolved/stable: Severe Sepsis GERD protonix 40mg daily Chronic diarrhea 2/2 cholecystectomy Milk of mag PRN Transaminitis likely 2/2 systemic inflamm continue to trend Iron deficiency anemia Fluids: nothing running. Net negative 4L since admission. Benefiting from Lasix 40 BID. E: free water flushes for hyponatremia which has now resolved DVT prophylaxis: lovenox GI: protonix 40 mg daily Associated attestation - Jeffrey Boyle MD - 06/19/2021 8:20 PM EDT I reviewed the history, the documented findings, and performed a physical exam of the patient. I agree with Dr. Allred's assessment, and we discussed the management of the patient. See orders. Alert, unlabored. No organomegaly, no cyanosis. No clubbing. No QUINAULT. Continue lasix. Taper off precedex. Remove lines. Abx per ID recs. * Eladia Scanlon MD - 06/18/2021 11:10 PM EDT Images from the original note were not included. [facility] - Infectious Diseases Attending Progress Note Subjective: On high flow Antimicrobials,Start/End Dates: Cefepime 06/16- Linezolid 06/16- Prior: Remdesivir (06/02; 06/04-06/07) OSH: Solumedrol Remdesivir 200mg IV x1 (06/02) Levaquin Vitals: Patient Vitals for the past 24 hrs: BP Temp Temp src Pulse Resp SpO2 Weight 06/18/21 2200 101/61 62 28 (!) 89 % 06/18/21 2100 (!) 101/58 63 (!) 31 (!) 89 % 06/18/21 2000 102/67 98.7 F (37.1 C) Temporal 66 16 (!) 85 % 06/18/21 1900 114/71 58 24 94 % 06/18/21 1800 113/61 64 21 96 % 06/18/21 1737 20 98 % 06/18/21 1700 119/73 70 13 99 % 06/18/21 1600 60 25 99 % 06/18/21 1522 20 100 % 06/18/21 1500 60 23 98 % 06/18/21 1402 17 99 % 06/18/21 1400 63 18 99 % 06/18/21 1300 72 18 98 % 06/18/21 1200 66 14 94 % 06/18/21 1143 61 18 06/18/21 1100 70 21 94 % 06/18/21 1000 78 21 (!) 86 % 06/18/21 0900 68 18 96 % 06/18/21 0841 55 21 97 % 06/18/21 0800 99.1 F (37.3 C) 54 24 97 % 06/18/21 0600 54 25 96 % 06/18/21 0551 53 96 % 06/18/21 0500 60 25 99 % (!) 414 lb 12.8 oz (188.2 kg) 06/18/21 0429 54 24 96 % 06/18/21 0400 54 25 97 % 06/18/21 0300 53 24 96 % 06/18/21 0200 54 24 95 % 06/18/21 0100 55 24 96 % 06/18/21 0016 54 24 96 % 06/18/21 0000 53 24 96 % Physical Exam: .Due to the current efforts to prevent transmission of COVID-19 and also the need to preserve PPE for other caregivers, a [id number] encounter with the patient was not performed. That being said, all relevant records and diagnostic tests were reviewed, including laboratory results and imaging. Please reference any relevant documentation elsewhere. Care will be coordinated with the primary service. Labs: Recent Labs 06/16/21 0915 06/16/21 1422 06/17/21 0003 06/18/21 0002 NA -- 144 142 140 K -- -- 3.7 3.3* CL -- -- 105 104 CO2 -- -- 31* 31* BUN -- -- 56* 59* CREATININE -- -- 0.88 0.71 GLUCOSE -- -- 258* 229* CALCIUM -- -- 8.6 8.3* PROT -- -- 6.4 6.1* LABALBU -- -- 3.3* 3.1* BILITOT -- -- 0.7 0.6 ALKPHOS -- -- 87 78 AST -- -- 55* 32 ALT -- -- 102* 86* PROCAL 0.08 -- -- -- Recent Labs 06/17/21 0003 06/18/21 0002 WBC 12.0* 11.1* HGB 11.3* 10.9* HCT 36.3 34.3* PLT 148 108* GRANULOCYTES 90.1* 84.9* LYMPHOPCT 4.7* 6.5* MONOPCT 5.1 8.5 LABEOS 0.0* 0.1* BASOPCT 0.1 0.0 NEUTROABS 10.8* 9.4* Micro: Ucx 06/16 >100k E.coli Bcx 06/15 coag neg staph 1/2 Resp cx 06/15 mod MRSA 06/12- blood cx- NGTD 06/12- pneumonia PCR panel- negative 06/12- resp cx- in process (stain with GPC pairs/ chains and yeast) 06/08- resp cx- C albicans 06/04- resp cx- rare resp pretty 06/04- pneumonia PCR panel- negative 06/04- Legionella urine Ag- negative 06/04- Strep pneumo urine Ag- negative 06/03- blood cx- negative Quantiferon- negative HIV screen- negative HBsAb- negative HBcAb total- negative HCV Ab- negative IL-6 level- 54.6 OSH: 06/02- COVID PCR + 06/02- Staph aureus PCR- + MSSA Recent Labs 06/17/21 0003 06/18/21 0002 CRP 7.8* 20.6* Recent Labs 06/17/21 0003 06/18/21 0002 DDIMER 13.33* 12.05* Recent Labs 06/17/21 0003 06/18/21 0002 FERRITIN 209 139 Recent Labs 06/17/21 0003 06/18/21 0002 LDH 374* 290* Lines: RIJ TLC (06/02) Radiography/Echo/Other: CXR 06/17: Lines, tubes, and devices: Endotracheal tube, nasogastric tube and right central venous catheter, unchanged in position Cardiomediastinal silhouette: Heart size is within normal limits. Lungs/Pleura: Patchy left greater than right basilar opacities and suspected small left-sided pleural effusion likely improved. No pneumothorax. Osseous structures/soft tissues: Osseous structures are unchanged. No soft tissue abnormality is detected. OSH: CTA chest- suboptimal to r/o PE; + infiltrates. Impression: 1. COVID-19 pneumonia with acute hypoxic respiratory failure - dx 06/02 in [facility] - sx onset 1 week prior to admission - exposed to COVID infected (dx 05/26) - unvaccinated by report - intubated (06/04) 2. Elevated D-dimer 3. Mild transaminitis 4. Pancytopenia 5. Morbid obesity (BMI 73) 6. MIGUEL 7. Failed occlusion test Plan: 1. Continue steroids; s/p remdesivir and toci x1 (06/04) 2. Continue linezolid for MRSA in respiratory cx and cefepime for E.coli in urine 3. Change lines--due to staph hominis bacteremia More that 51% total time 25 Minutes counseling (or coordinating care) and providing discussion regarding COVID. Eladia Scanlon MD * Rocio Lopez MD - 06/18/2021 3:07 PM EDT Images from the original note were not included. Palliative Care follow up Chief Complaint: Jesusita England is a 51 y.o. female with chief complaint of COVID-19 Palliative care is actively following this patient. Assessment/Plan Assessment/Plan Palliative Care Encounter - full code - sisterMaggie ([phone]), who is RN, is primary point of contact - Radha is recovering from covid (now home), he is legal NOK (he defers to sister) - pt now extubated - placed TC to sister, she has been updated by ICU team - will continue to follow for ongoing monitoring of progression of dyspnea related to COVID-19 - will continue to assess patient status including oxygen requirements Ongoing counseling of patient and family regarding diagnoses of {COVID-19 including prognosticationin serious illness COVID-19 - MSSA Co-infection - passed SBT today, extubated this afternoon - s/p toci/remdesivir - decadron -> continue per ID Anxiety - pt very anxious this AM, was trying to write on piece of paper, wrote the word spectroscopist and seemed very fearful. Reassured the patient that she was in a safe place. - verified with pt sister she does not have any h/o PTSD, bad experience with police, rape Active Hospital Problems Diagnosis Date Noted Palliative care encounter [Z51.5] Pneumonia due to COVID-19 virus [U07.1, J12.82] 06/03/2021 Greater than 51% of time spent, total 35 minutes in counseling and coordination of care with patient or their surrogate decision maker, ICU team, RN, on the patient's medical unit or on hospital campus regarding Symptom Management and Diagnosis and Prognosis. Due to the COVID-19 pandemic audiovisual including tablets or telephone were used as appropriate to limit exposure and spread of disease and preserve PPE. Discharge planning: to be determined Patient meets criteria for general inpatient hospice care including the following: n/a, palliative patient Referrals to: none today Discussed patient and the plan of care with the other IDT membersof Palliative Care, and with Primary Attending and Floor Nurse Subjective: Subjective/Events Met with pt this AM. She was anxious, trying to write on paper. Denied pain or shortness of breath. Pt able to be extubated later in the afternoon. Revisited- she states she is less anxious TC to her sister, she will be visiting later today Case d/w primary team and RN Remains on cefepime, decadron, zyvox HISTORICAL:51 year old woman with PMH HTN, morbid obesity, MIGUEL, reportedly unvaccinated for COVID, was diagnosed around 05/26 with COVID. Spent a week at home until she was admitted to [facility] in [place]. She recevied treatment there, as noted by ID, for COVID and found to have MSSAby nasal swab. For insurance reasons, she was transferred to [facility] and was intubated. She is now intubated, in the ICU, sedated. No family present -> also ill with COVID. Goals of care:Continue Current Management and To Be Determined Advance Directives: full code Surrogate: Spouse Prognosis: depends upon goals Spiritualassessment: No spiritual distress identified Bereavement and grief: To Be Determined Family Meeting: Participants: keith Serrano by phone Family meeting was held to discuss: See above Objective: BP 119/73 Pulse 70 Temp 99.1 F (37.3 C) Resp 13 Ht 5' 5 (1.651 m) Wt (!) 414 lb 12.8 oz (188.2 kg) SpO2 99% BMI 69.03 kg/m Attending Exam: Appearance: anxious Eyes: clear conjunctiva, PERRL, pupils normal size ENT: hearing normal, on initial exam ETT in place Neck: supple, no LAD, no thyromegaly Respiratory: breathing unlabored, lungs CTA B anteriorly without w/r/r Cardiovascular: heart RRR without m/g/r, pedal pulses palpable Gastrointestinal: abdomen soft, non-tender, non-distended, normoactive bowel sounds. No masses or hernia. Musculoskeletal: normal digits and nails without cyanosis or clubbing, normal muscle strength and tone, no edema of BL LE Skin: warm and dry, no rash or wounds Neurologic: symmetric strength and sensation, CN II-XII intact grossly BL, no myoclonus Psychiatric: agitated; on initial exam unable to assess orientation due to intubated Parker Symptom Assessment Score Parker Score Pain Score 0 Tiredness Score 5 Nausea Score 0 Depression Score 0 Anxiety Score 0 Drowsiness Score 5 Anorexia Score (0= eating well, 10= not eating) 10 Wellbeing Score (10= worst sense of well-being) 0 Constipation 0 Dyspnea Score (0= no shortness of breath) 10 FLACC Scale (For Pain Assessment of the Non-Verbal Patient) Face: 0- no particular expression Legs: 0- normal position or relaxed Activity: 0-lyingquietly, moves easily Cry: 0-no cry Consolability:0-content, relaxed Total Score: 0 Assessed by: provider. All other systems were reviewed and are negative. CurrentMedications: Inpatient medications reviewed: yes Home Medications reviewed: yes 24 Hour PRN Meds: milk of mag x 1 Results/Verification of Data Review Objective data reviewed: labs, images, records, medication use, vitals and chart * Alondra Harding RCP - 06/18/2021 11:45 AM EDT [facility] Respiratory Care Department Progress Note Spontaneous Breathing Trial (SBT) Start: 2-3 min to Stabilize After 15 min After 30 min HR 63 66 67 SpO2 (%) 94 94 94 RR 21 20 20 VT (L) [phone] Total RSBI (RR/VT in Liters) 37 28 31 Pass SBT (RSBI must be?105 to pass) yes yes yes Comments (state reason if SBT failed): Additional data if requested: NIF = VC = Name of physician results were reported to: Time results reported to physician: Thank you for involving Respiratory in the care of this patient, * Elijah Allred MD - 06/18/2021 7:25 AM EDT Images from the original note were not included. ICU Progress Note Jesusita England : 1970(51 y.o.) Date: June 18, 2021 Team: ICU Attending: Dr. Boyle Chief Complaint: shortness of breath following recent covid exposure Subjective: Brief HPI: 51F hx morbid obesity, MIGUEL, asthma admitted 06/03 for covid PNA, now day 15 mechanical ventilation ondecadron & s/p remdesevir/toci and with IV lasix for improving/stabilizing pleural effusion on CxR. Has passed SBTs in recent days but is s/p failed cuff leak 06/15 with newly acquired LL infiltrate, which ID is following (now day 3 of cefepime + linezolid). Current plan is to wean sedation/vent/steroids with intent to extubate if able. Of note, this patient is officially out of covid isolation on 06/19. Overnight/AM: - afebrile overnight. Negative for calf pain, chest pain, worsening SOB. - vent asynchrony stable/improving however pt is with mild hypoxemia/alkalemia, settings currently PEEP 10, FiO2 50% - comfortable & following commands with agitation stabilized on fentanyl (150), precedex (0.4),and lower dose of propofol (45 --> 10) Review of Systems Unable to perform ROS: Intubated Scheduled Meds: potassium phosphate IVPB 10 mmol Intravenous Once calcium gluconate IVPB 2,000 mg Intravenous Once insulin lispro 0-12 Units Subcutaneous TID WC miconazole Topical BID dexamethasone 6 mg Intravenous Daily linezolid 600 mg Intravenous Q12H cefepime 2,000 mg Intravenous Q8H furosemide 40 mg Intravenous BID insulin lispro 3 Units Subcutaneous Q6H gabapentin 300 mg Per G Tube TID Vitamin D 2,000 Units Per G Tube Daily chlorhexidine 15 mL Mouth/Throat BID sodium chloride flush 10 mL Intravenous 2 times per day pantoprazole 40 mg Intravenous Daily And sodium chloride (PF) 10 mL Intravenous Daily ipratropium-albuterol 1 ampule Inhalation 4x daily enoxaparin 40 mg Subcutaneous BID cholestyramine 1 packet Oral Daily sodium chloride flush 5-40 mL Intracatheter Q8H Continuous Infusions: dexmedetomidine 0.4 mcg/kg/hr (06/18/21618) propofol 10 mcg/kg/min (06/18/21 06) fentaNYL 150 mcg/hr (06/18/21 0315) [Held by provider] midazolam Stopped (06/12/21 1542) dextrose sodium chloride 25 mL (06/16/21 0928) PRN meds used in last 24hrs: none Objective: VITALS: BP 133/70 Pulse 54 Temp 98.6 F (37 C) (Axillary) Resp 25 Ht 5' 5 (1.651 m) Wt (!) 414 lb 12.8 oz (188.2 kg) SpO2 96% BMI 69.03 kg/m CURRENT PULSE OXIMETRY: SpO2: 96 % I/O: 06/17 0701 - 06/18 07 In: 3459.2 [I.V.:2111.2] Out: 3270 [Urine:3270] Ventilator Settings: Vent Mode: AC/VC+ Rate Set: 24 bmp Vt Ordered: 400 mL Pressure Support: 0 cmH20 PEEP/CPAP: 10 FiO2 : 50 % Oxygen Delivery - Invasive Lines and Dates: CVC Triple Lumen 06/03/21 Right Internal jugular 06/03/21 NG/OG/NJ/NE Tube Orogastric Center mouth 06/04/21 Urethral Catheter 06/03/21 Arterial Line 06/04/21 Right Radial Intubation Date: 06/04/21 General Appearance: []WDWN [x]Obese []Cachectic []Thin []ill Skin: Temperature [x]Warm []Cool Rash []Yes []No Tattoo(s) []Yes []No HEENT: Pupils round and react [x]Yes []No Sclera []Icteric []Non-Icteric Conjunctiva []Injected []Non-Injected Pinnae []Normal []Other Dentitian [][employer] [place] Teeth []Dentures Oral Mucosa []Pauline []Moist []Dry Oral ETT [x]Present []Absent Neck: Trachea midline [x]Yes []No Thyromegaly []Yes [x]No Crepitus []Present [x]Absent Jvd []Present [x]Absent Lungs: []Clear []Crackles [x]Wheezes []Rhonchi Respiratory effort []Labored []Non-Labored Heart: Rate [x]Regular []Irregular []Tachycardia []Bradycardia Rhythm [x]Regular []Irregular Murmur []Present [x]Absent Peripheral Edema []Present [x]Absent Abdomen: [x]Soft Bowel Sounds [x]Present []Absent []Tender [x]Non-Tender []Distended []Non-distended Hernia []Present []Absent Organomegaly []Present []Absent []Scar Extremities: Cyanosis []Present []Absent STEELE ([]RUE []RLE []LUE []LLE) Neurologic: QUINAULT []Yes []No Corneal reflexes []Present []Absent Plantar reflexes []Up []Down []Absent Withdraws to tactile [x]Yes []No Follows Commands [x]Yes []No []Unresponsive to verbal []Cranial nerves grossly intact []Sensation grossly intact Psych: Alert [x]yes []no Oriented []x0 []x1 []x2 []x3 Affect []Normal []Flat []Agitated []Anxious []Calm [x]Sedated []NAD [facility] within last 72 hours BMP: Recent Labs 06/15/21230706/15/21230706/16/21 1422 06/17/21 0003 06/18/21 0002 NA 145 < > 144 142 140 K 4.2 -- -- 3.7 3.3* CL 107 -- -- 105 104 CO2 32* -- -- 31* 31* BUN 56* -- -- 56* 59* CREATININE 0.90 -- -- 0.88 0.71 CALCIUM 8.8 -- -- 8.6 8.3* MG 2.6* -- -- 2.5* 2.3 PHOS 4.5 -- -- 4.1 3.4 < > = values in this interval not displayed. LFTS: Recent Labs 06/15/21230706/17/21206/18/21 0002 AST 110* 55* 32 ALT 133* 102* 86* PROT 6.6 6.4 6.1* LABALBU 3.4* 3.3* 3.1* BILITOT 0.8 0.7 0.6 ALKPHOS 83 87 78 Glucose: Recent Labs 06/15/21230706/16/21 0006 06/16/21 1732 06/17/21 0003 06/17/21 0007 06/17/21 0453 06/17/21 0919 06/17/21 1231 06/17/21 1847 06/18/21 0002 06/18/21 0009 06/18/21 0618 GLUCOSE 223* -- -- 258* -- -- -- -- -- 229* -- -- POCGLU -- < > 252* -- 272* 260* 252* 268* 239* -- 205* 192* < > = values in this interval not displayed. CBC: Recent Labs 06/17/21206/18/21 0002 WBC 12.0* 11.1* HGB 11.3* 10.9* HCT 36.3 34.3* PLT 148 108* MCV 74.0* 73.0* RDW 21.7* 21.3* ABGs: Recent Labs 06/15/21 23206/18/21 0619 PHART 7.489* 7.503* CRY9PBL 42.5 41.5 PO2ART 84.9 73.2* PMQ5UIE 31.6* 31.9* W2LSCLBQ 95.6 93.9* FIO2A No data 50% Lactic Acid: Recent Labs 06/15/21 2308 LACTA 0.9 INR: No results for input(s): INR in the last 72 hours. pro-BNP: No results for input(s): NTPROBNP in the last 72 hours. Cardiac Injury Profile: No results for input(s): CKTOTAL, CKMB, TROPONINI in the last 72 hours. Labs in Last 3 months: Lab Results Component Value Date CHOL 124 06/03/2021 TRIG 90 06/03/2021 HDL 26 (L) 06/03/2021 LDLCHOLESTEROL 80 06/03/2021 TSH 0.869 06/03/2021 VITD25 19 (L) 06/03/2021 INR 1.0 06/03/2021 NTPROBNP 1,248 (H) 06/03/2021 LABA1C 6.1 (A) 06/03/2021 Imaging: CXR 06/15 Frontal portable chest view shows left basilar atelectasis/infiltrate and probably small pleural effusion, not significantly changed from last exam. There is now increased right basilar infiltrates. The heart is borderline enlarged. Tracheal and enteric tubes and right IJ catheter are similar to prior. There is no mediastinal widening or other significant interval change. Cultures: No new cx Assessment and Plan: Active Problems: Pneumonia due to COVID-19 virus Palliative care encounter Resolved Problems: * No resolved hospital problems. * Acute hypoxic resp failure 2/2 COVID 19 PNA on ventilator- improving - intubated since 06/04, ACVC rate 24, TV 400, PIP 27, PEEP 10, FiO2 60 (higher peep since 06/15) - remdesivir course and tocilizumab 06/04 completed - completed diflucan for 7 days, done - duonebs 4 times daily and vitamin D supplementation - analgesia/sedation: fentanyl, propofol - consults: palliative care following - COVID labs: CRP (6.8 --> 7.8), LD (303 --> 446). Procal (wnl) - repeat BLE venous US-no DVT - failed occlusion test 06/15 - last ABG: [7.50 / 42 / 73 / 31] - meds: decadron 6mg daily (11 days, through 06/14). Switched to decadron 10 q8 (3 days, through 06/16). Now 6 mg daily (started 06/17). - plan: wean steroids, re-attempt occlusion test, and wean propofol and vent settings as able in anticipation for possible extubation - out of covid isolation on 06/19 Ventilator acquired PNA with concurrent UTI - fever 103.7 on (06/15) which responded well to tylenol/cooling and has been controlled - CxR (06/16): LLL patchy infiltrate redemonstrated (initially seen 06/15) with L>R basilar opacities - ID consulted, appreciate recs - labs: 1/2 BCs (positive for coag neg staph); MRSA PCR panel (negative) ; procal (wnl) ; urine culture (e.coli), resp culture (MRSA) - abx: linezolid + cefepime initiated 06/16 - plan: f/u blood cultures, procal, LA. Pleural effusion - moderate/improving - at this time, does not appear to require tap. Will continue to follow. - net balance volume status since admission - CxR 06/18: left bibasilar opacity stable/slightly increased (consolidation vs atelectasis vs pleureffusion) - Lasix 40 mg now BID (from once daily). Trend Cr + BUN. Hypernatremia - resolved - net negative 2.5L since admission - water flushes @250 ml, now q8 (from q4) Morbid Obesity MIGUEL Asthma - currently on ventilator - palliative following, appreciate input Resolved/stable: Severe Sepsis GERD protonix 40mg daily Chronic diarrhea 2/2 cholecystectomy Milk of mag PRN Transaminitis likely 2/2 systemic inflamm continue to trend Iron deficiency anemia Fluids: nothing running. Net balanced vol status since admission. On Lasix 40 BID E: free water flushes for hyponatremia which has now resolved DVT prophylaxis: Lovenox GI: protonix 40 mg daily Associated attestation - Jeffrey Boyle MD - 06/18/2021 9:07 PM EDT I reviewed the history, the documented findings, and performed a physical exam of the patient. I agree with Dr. Allred's assessment, and we discussed the management of the patient. See orders. Alert, passed SBT. Extubate. Total critical care time caring for this patient with life threatening, unstable organ failure, including direct patient contact, management of life support systems, review of data including imaging and labs, discussions with other team members and physicians at least 35 minutes so far today, excluding procedures. * Elijah Allred MD - 06/18/2021 6:17 AM EDT ICU Liberation - Multidisciplinary Rounds A: Analgesia/Pain Management B: BOTH Spontaneous Breathing and Spontaneous Awakening Trials (SBT/SAT) C: Choice of Analgesia and Sedation D: Delirium- Assess, Treat, and Manage E: Early Mobility and Exercise F: Family Engagement and Empowerment A: Analgesia Assess Pain Level: 0 (06/16/21 1600) Score CPOT (Vent): 0 (06/17/21 1600) Patient's Stated Pain Goal: No pain (06/13/21 0400) Prevent Continuous drip(s): Fentanyl Manage Pain well controlled?: Yes B: BOTH Spontaneous Breathing and Spontaneous Awakening Trials (SBT/SAT) Airway support: O2 Device: Ventilator (06/17/211953) Spontaneous Awakening Trial: Spontaneous Awakening Trial (SAT) RN Doc Absolute Contraindications present?: None (06/06/21799) Relative Contraindications present?: None (06/06/21799) Contacted Provider About Relative Contraindications?v: Yes (No sedation vacation d/t high vent settings per Dr. Hector) (06/06/21799) Did patient fail SAT?: Yes (06/06/21799) Reasons patient failed SAT: Other (comment) (high vent settings) (06/06/21799) RT Notified ready for SBT?: Patient failed SAT (06/04/21732) Spontaneous Breathing Trial: Spontaneous Breathing Trial (SBT) RT Doc Contraindications to SBT?: FiO2 > 50%;PEEP > 10 cm H2O (06/18/21 0551) Rate Measured: 24 br/min (06/18/21 0600) Pulse: 54 (06/18/21 0600) SpO2: 96 % (06/18/21 0600) Spontaneous VT: 442 mL (06/05/21 1731) Is patient ventilated?: Yes. HOB up 30-45 degrees?: Yes; CHG Mouth Rinse Ordered?: Yes; Plan for Extubation Today?: Will Reassess C: Choice of Analgesia and Sedation RASS Score: Drowsy - Patient awakens with sustained eye opening and eye contact (06/17/212013) Sedation Goal: RASS: -1 to 1 Current Medications: Fentanyl Precedex Propofol Restraint Order Placed During Rounds?: Yes D: Delirium & Diet Assess CAM-ICU Score: Negative (06/17/212013) Manage Is CAM-ICU Positive?: Yes. Plan to address delirium: Delirium protocol, wean sedation + extubate Diet Diet NPO ADULT TUBE FEEDING; Orogastric; Immune Enhancing; Continuous; 10; Yes; 10; Q 4 hours; 35; 250; Q 8 hours E: Early Mobility and Exercise PT/OT/Speech consults ordered as appropriate? NA Activity Order No Activity Order Mobility Goal for Today: strict bedrest F: Family Engagement and Empowerment Code Status: Full Code Palliative Care Triggers?: Admitted from SNF or LTAC Is Pall Care consulted? Yes Family Communication: Family is not currently present. Invasive Lines / Tubes / Drains CVC Triple Lumen 06/03/21 Right Internal jugular (Active) Number of days: 14 NG/OG/NJ/NE Tube Orogastric Center mouth (Active) Number of days: 14 Urethral Catheter (Active) Number of days: 14 Non-Surgical Airway 06/04/21 Endo Tracheal Tube (Active) Number of days: 14 ETT (adult) (Active) Number of days: 14 Arterial Line 06/04/21 Right Radial (Active) Number of days: 14 Central Line Indication: Vesicant infusions/medications at high risk of causing extravasation [place] Indication: Strict/Hourly I&O Does patient have a PIV in addition to a central line?: Yes - PIV must remain in due to need for additional access Wound Care and Prevention Wound 06/09/21 Buttocks Right Stage II-Wound Etiology: Pressure Stage 2 (06/17/211999) Wound: NA - patient does not have wound(s) Zelalem Score: Zelalem Scale Score: 13 (06/17/21 9448) Wound Care and Prevention: NA - patient does not meet criteria Prophylaxis DVT Prophylaxis: Pharmacologic Prophylaxis: SQ enoxaparin (Lovenox) GI Prophylaxis: Proton pump inhibitor (PPI) * Luly Pratt RCP - 06/18/2021 5:51 AM EDT 06/18/21 0551 Spontaneous Breathing Trial (SBT) RT Doc Contraindications to SBT? FiO2 > 50%;PEEP > 10 cm H2O Rate Measured 24 br/min Pulse 53 SpO2 96 % * Elijah Allred MD - 06/17/2021 4:50 PM EDT Family Communications: Have been in consistent communication with patient sister maggie who is keen on plan to wean sedation, vent, and steroids as able this week in hope for potential extubation this week. COVID isolation ending 06/19, with family planning to visit. * Rubin Rm OT - 06/17/2021 2:55 PM EDT Occupational Therapy Pt vented and sedated, will follow. * Eladia Scanlon MD - 06/17/2021 12:00 PM EDT Images from the original note were not included. [facility] - Infectious Diseases Attending Progress Note Subjective: Remains in Intensive Care Unit on the ventilator, FiO2 50%. Had a temperature 06/15 103.7. WBC 12 from 14.4 Antimicrobials,Start/End Dates: Cefepime 06/16- Linezolid 06/16- Prior: Remdesivir (06/02; 06/04-06/07) OSH: Solumedrol Remdesivir 200mg IV x1 (06/02) Levaquin Vitals: Patient Vitals for the past 24 hrs: Temp Temp src Pulse Resp SpO2 06/17/21 1100 58 24 94 % 06/17/21 1000 70 24 98 % 06/17/21 0929 72 24 100 % 06/17/21 0900 65 24 99 % 06/17/21 0800 56 24 96 % 06/17/21 0700 69 19 100 % 06/17/21 0600 69 24 99 % 06/17/21 0400 64 24 96 % 06/17/21 0300 98.6 F (37 C) Axillary 74 19 100 % 06/17/21 0200 57 24 96 % 06/17/21 0000 99.2 F (37.3 C) Axillary 06/16/21 2300 69 24 96 % 06/16/21 2200 80 18 100 % 06/16/21 2100 80 23 100 % 06/16/21 2024 68 24 95 % 06/16/21 2023 24 95 % 06/16/21 2000 99.4 F (37.4 C) 64 24 95 % 06/16/21 1900 71 24 95 % 06/16/21 1800 81 18 96 % 06/16/21 1700 91 13 99 % 06/16/21 1644 70 24 95 % 06/16/21 1632 99.8 F (37.7 C) Axillary 06/16/21 1600 68 24 95 % 06/16/21 1500 66 22 95 % 06/16/21 1400 77 14 95 % 06/16/21 1300 70 13 95 % 06/16/21 1250 68 15 99 % Physical Exam: .Due to the current efforts to prevent transmission of COVID-19 and also the need to preserve PPE for other caregivers, a [id number] encounter with the patient was not performed. That being said, all relevant records and diagnostic tests were reviewed, including laboratory results and imaging. Please reference any relevant documentation elsewhere. Care will be coordinated with the primary service. Labs: Recent Labs 06/15/21 0101 06/15/21 0101 06/15/21 2308 06/16/21 0915 06/16/21 1422 06/17/21 0003 NA 146* < > 145 -- 144 142 K 4.5 -- 4.2 -- -- 3.7 CL 106 -- 107 -- -- 105 CO2 36* -- 32* -- -- 31* BUN 51* -- 56* -- -- 56* CREATININE 0.88 -- 0.90 -- -- 0.88 GLUCOSE 157* -- 223* -- -- 258* CALCIUM 9.1 -- 8.8 -- -- 8.6 PROT 6.9 -- 6.6 -- -- 6.4 LABALBU 3.6 -- 3.4* -- -- 3.3* BILITOT 0.9 -- 0.8 -- -- 0.7 ALKPHOS 87 -- 83 -- -- 87 AST 61* -- 110* -- -- 55* ALT 68* -- 133* -- -- 102* PROCAL -- -- 0.08 0.08 -- -- < > = values in this interval not displayed. Recent Labs 06/15/21 0101 06/17/21 0003 WBC 14.4* 12.0* HGB 12.4 11.3* HCT 39.6 36.3 PLT 209 148 GRANULOCYTES 84.4* 90.1* LYMPHOPCT 6.3* 4.7* MONOPCT 9.1 5.1 LABEOS 0.0* 0.0* BASOPCT 0.2 0.1 NEUTROABS 12.2* 10.8* Micro: Ucx 06/16 >100k E.coli Bcx 06/15 coag neg staph 1/2 Resp cx 06/15 mod MRSA 06/12- blood cx- NGTD 06/12- pneumonia PCR panel- negative 06/12- resp cx- in process (stain with GPC pairs/ chains and yeast) 06/08- resp cx- C albicans 06/04- resp cx- rare resp pretty 06/04- pneumonia PCR panel- negative 06/04- Legionella urine Ag- negative 06/04- Strep pneumo urine Ag- negative 06/03- blood cx- negative Quantiferon- negative HIV screen- negative HBsAb- negative HBcAb total- negative HCV Ab- negative IL-6 level- 54.6 OSH: 06/02- COVID PCR + 06/02- Staph aureus PCR- + MSSA Recent Labs 06/15/2110006/15/21230706/17/21 0003 CRP 7.0* 7.8* 7.8* Recent Labs 06/15/21 01006/15/21 2308 06/17/21 0003 DDIMER 25.22* 23.52* 13.33* Recent Labs 06/15/21 01006/15/21230706/17/21 0003 FERRITIN 123 291* 209 Recent Labs 06/15/21 01006/15/218 06/17/21 0003 LDH 446* 446* 374* Lines: RIJ TLC (06/02) Radiography/Echo/Other: CXR 06/17: Lines, tubes, and devices: Endotracheal tube, nasogastric tube and right central venous catheter, unchanged in position Cardiomediastinal silhouette: Heart size is within normal limits. Lungs/Pleura: Patchy left greater than right basilar opacities and suspected small left-sided pleural effusion likely improved. No pneumothorax. Osseous structures/soft tissues: Osseous structures are unchanged. No soft tissue abnormality is detected. OSH: CTA chest- suboptimal to r/o PE; + infiltrates. Impression: 1. COVID-19 pneumonia with acute hypoxic respiratory failure - dx 06/02 in [facility] - sx onset 1 week prior to admission - exposed to COVID infected (dx 05/26) - unvaccinated by report - intubated (06/04) 2. Elevated D-dimer 3. Mild transaminitis 4. Pancytopenia 5. Morbid obesity (BMI 73) 6. MIGUEL 7. Failed occlusion test Plan: 1. Continue steroids; s/p remdesivir and toci x1 (06/04) 2. Continue linezolid for MRSA in respiratory cx and cefepime for E.coli in urine More that 51% total time 25 Minutes counseling (or coordinating care) and providing discussion regarding COVID. Eladia Scanlon MD * Promise Davis, PT - 06/17/2021 10:37 AM EDT Physical Therapy Screen PT eval and treatment attempted. Pt remains on vent and sedated. 50% FiO2, 10 PEEP. On Precedex, Fentany, Versed and Propofol gtt. Will hold PT, follow with screens. Promise Davis PT, GCS * Elijah Allred MD - 06/17/2021 5:56 AM EDT Images from the original note were not included. ICU Progress Note Jesusita England : 1970(51 y.o.) Date: June 16, 2021 Team: ICU Attending: Dr. Boyle Chief Complaint: shortness of breath following recent covid exposure Subjective: Brief HPI: 51F hx morbid obesity, MIGUEL, asthma admitted 06/03 for covid PNA, now day 14 mechanical ventilation ondecadron & s/p remdesevir/toci and with IV lasix for improving/stabilizing pleural effusion on CxR. Has passed SBTs in recent days but is s/p failed cuff leak 06/15 with recent increase in decadron + PEEP recs, and newly acquired LL infiltrate, which ID is following for (now day 2 of cefepime + linezolid). Of note, this patient is officially out of covid isolation on 06/19. Overnight/AM: - afebrile overnight. Denies calf pain, chest pain, worsening SOB. - vent asynchrony stable/moderately improved overnight, settings remaining with PEEP 10, FiO2 55% - comfortably sedated, less agitated this AM on fentanyl (150) and propofol (15--> 45) Review of Systems Unable to perform ROS: Intubated Scheduled Meds: linezolid 600 mg Intravenous Q12H cefepime 2,000 mg Intravenous Q8H furosemide 40 mg Intravenous BID dexamethasone 4 mg Intravenous Q6H insulin lispro 3 Units Subcutaneous Q6H gabapentin 300 mg Per G Tube TID Vitamin D 2,000 Units Per G Tube Daily chlorhexidine 15 mL Mouth/Throat BID insulin lispro 0-6 Units Subcutaneous Q6H sodium chloride flush 10 mL Intravenous 2 times per day pantoprazole 40 mg Intravenous Daily And sodium chloride (PF) 10 mL Intravenous Daily ipratropium-albuterol 1 ampule Inhalation 4x daily enoxaparin 40 mg Subcutaneous BID cholestyramine 1 packet Oral Daily sodium chloride flush 5-40 mL Intracatheter Q8H Continuous Infusions: propofol 35 mcg/kg/min (06/16/21 2100) fentaNYL 150 mcg/hr (06/16/21 1540) [Held by provider] midazolam Stopped (06/12/21 1542) dextrose sodium chloride 25 mL (06/16/21 0928) PRN meds used in last 24hrs: none Objective: VITALS: BP 133/70 Pulse 68 Temp 99.8 F (37.7 C) (Axillary) Resp 24 Ht 5' 5 (1.651 m) Wt (!) 416 lb 11.2 oz (189 kg) SpO2 95% BMI 69.34 kg/m CURRENT PULSE OXIMETRY: SpO2: 95 % I/O: 06/15 0701 - 06/16 0700 In: 3372 [I.V.:1211] Out: 2345 [Urine:2345] Ventilator Settings: Vent Mode: AC/VC+ Rate Set: 24 bmp Vt Ordered: 400 mL Pressure Support: 0 cmH20 PEEP/CPAP: 10 FiO2 : 55 % Oxygen Delivery - Invasive Lines and Dates: CVC Triple Lumen 06/03/21 Right Internal jugular 06/03/21 NG/OG/NJ/NE Tube Orogastric Center mouth 06/04/21 Urethral Catheter 06/03/21 Arterial Line 06/04/21 Right Radial Intubation Date: 06/04/21 General Appearance: []WDWN [x]Obese []Cachectic []Thin []ill Skin: Temperature [x]Warm []Cool Rash []Yes []No Tattoo(s) []Yes []No HEENT: Pupils round and react [x]Yes []No Sclera []Icteric []Non-Icteric Conjunctiva []Injected []Non-Injected Pinnae []Normal []Other Dentitian [][employer] [place] Teeth []Dentures Oral Mucosa []Pauline []Moist []Dry Oral ETT [x]Present []Absent Neck: Trachea midline [x]Yes []No Thyromegaly []Yes [x]No Crepitus []Present [x]Absent Jvd []Present [x]Absent Lungs: []Clear []Crackles [x]Wheezes []Rhonchi Respiratory effort []Labored []Non-Labored Heart: Rate [x]Regular []Irregular []Tachycardia []Bradycardia Rhythm [x]Regular []Irregular Murmur []Present [x]Absent Peripheral Edema []Present [x]Absent Abdomen: [x]Soft Bowel Sounds [x]Present []Absent []Tender [x]Non-Tender []Distended []Non-distended Hernia []Present []Absent Organomegaly []Present []Absent []Scar Extremities: Cyanosis []Present []Absent STEELE ([]RUE []RLE []LUE []LLE) Neurologic: QUINAULT []Yes []No Corneal reflexes []Present []Absent Plantar reflexes []Up []Down []Absent Withdraws to tactile [x]Yes []No Follows Commands [x]Yes []No []Unresponsive to verbal []Cranial nerves grossly intact []Sensation grossly intact Psych: Alert [x]yes []no Oriented []x0 []x1 []x2 []x3 Affect []Normal []Flat []Agitated []Anxious []Calm [x]Sedated []NAD [facility] within last 72 hours BMP: Recent Labs 06/14/213706/14/21 0500 06/15/2110006/15/21 23006/16/21 1422 NA 148* < > 146* 145 144 K 4.6 -- 4.5 4.2 -- CL 110* -- 106 107 -- CO2 33* -- 36* 32* -- BUN 53* -- 51* 56* -- CREATININE 0.73 -- 0.88 0.90 -- CALCIUM 9.1 -- 9.1 8.8 -- MG 2.4* -- 2.5* 2.6* -- PHOS 4.3 -- 4.2 4.5 -- < > = values in this interval not displayed. LFTS: Recent Labs 06/14/213706/15/2110006/15/212307 AST 44 61* 110* ALT 61* 68* 133* PROT 6.7 6.9 6.6 LABALBU 3.5 3.6 3.4* BILITOT 0.6 0.9 0.8 ALKPHOS 89 87 83 Glucose: Recent Labs 06/14/21 0038 06/14/21 0507 06/14/21 2332 06/15/21 0101 06/15/21 0538 06/15/21 1250 06/15/21 1827 06/15/21 2308 06/16/21 0006 06/16/21 0544 06/16/21 1117 06/16/21 1732 GLUCOSE 134* -- -- 157* -- -- -- 223* -- -- -- -- POCGLU -- < > 186* -- 148* 187* 163* -- 215* 220* 273* 252* < > = values in this interval not displayed. CBC: Recent Labs 06/14/213706/15/21100 WBC 12.3* 14.4* HGB 12.0 12.4 HCT 38.3 39.6 PLT 229 209 MCV 71.7* 73.1* RDW 21.4* 21.8* ABGs: Recent Labs 06/14/21 0038 06/15/21 0101 06/15/21 2321 PHART 7.501* 7.518* 7.489* OHF5YID 41.9 41.8 42.5 PO2ART 83.7 68.3* 84.9 PVP3QAG 32.0* 33.2* 31.6* S8GRMCVP 95.6 92.8* 95.6 FIO2A No data No data No data Lactic Acid: Recent Labs 06/15/21 2308 LACTA 0.9 INR: No results for input(s): INR in the last 72 hours. pro-BNP: No results for input(s): NTPROBNP in the last 72 hours. Cardiac Injury Profile: No results for input(s): CKTOTAL, CKMB, TROPONINI in the last 72 hours. Labs in Last 3 months: Lab Results Component Value Date CHOL 124 06/03/2021 TRIG 90 06/03/2021 HDL 26 (L) 06/03/2021 LDLCHOLESTEROL 80 06/03/2021 TSH 0.869 06/03/2021 VITD25 19 (L) 06/03/2021 INR 1.0 06/03/2021 NTPROBNP 1,248 (H) 06/03/2021 LABA1C 6.1 (A) 06/03/2021 Imaging: CXR 06/15 Frontal portable chest view shows left basilar atelectasis/infiltrate and probably small pleural effusion, not significantly changed from last exam. There is now increased right basilar infiltrates. The heart is borderline enlarged. Tracheal and enteric tubes and right IJ catheter are similar to prior. There is no mediastinal widening or other significant interval change. Cultures: No new cx Assessment and Plan: Active Problems: Pneumonia due to COVID-19 virus Palliative care encounter Resolved Problems: * No resolved hospital problems. * Acute hypoxic resp failure 2/ COVID 19 PNA on ventilator- improving - intubated since 06/04, ACVC rate 24, TV 400, PIP 27, PEEP 10, FiO2 60 (higher peep since 06/15) - remdesivir course and tocilizumab 06/04 completed - completed diflucan for 7 days, done - duonebs 4 times daily and vitamin D supplementation - analgesia/sedation: fentanyl, propofol - consults: palliative care following - COVID labs: CRP (6.8 --> 7.8), LD (303 --> 446). Procal (wnl) - repeat BLE venous US-no DVT - failed occlusion test 06/15 - last ABG: [7.49 / 43 / / ] - meds: decadron 6mg daily (11 days, through 06/14). Switched to decadron 10 q8 (3 days, through 06/16). Now 6 mg daily (started 06/17). - plan: wean steroids, re-attempt occlusion test, and wean propofol and vent settings as able in anticipation for possible extubation - out of covid isolation on 06/19 Ventilator acquired PNA - fever 103.7 on (06/15) which responded well to tylenol/cooling and has been controlled - CxR (06/16): LLL patchy infiltrate redemonstrated (initially seen 06/15) with L>R basilar opacities - ID consulted, appreciate recs - labs: 12/01 BCs (positive for coag neg staph); MRSA PCR panel (negative) ; procal (wnl) ; UA (moderate bacteriuria + WBCs) - abx: linezolid + cefepime initiated 06/16 - plan: f/u brooke cultures, procal, LA. Pleural effusion - moderate/improving - at this time, does not appear to require tap. Will continue to follow. - net negative 4 L since admission - CxR 06/17: small left pleural effusion improving - Lasix 40 mg now BID (from once daily). Hypernatremia - resolved - Net negative 2.5L since admission - Water flushes @250 ml, now q8 (from q4) - q6 (from q4) sodium checks. Trend Cr/BUN Morbid Obesity MIGUEL Asthma - currently on ventilator - palliative following, appreciate input Resolved/stable: Severe Sepsis GERD protonix 40mg daily Chronic diarrhea 2/2 cholecystectomy Milk of mag PRN Transaminitis likely 2/2 systemic inflamm continue to trend Iron deficiency anemia Fluids: nothing running. Net (-) 4L. On Lasix 40 BID E: free water flushes for hyponatremia DVT prophylaxis: Lovenox GI: protonix 40 mg daily Associated attestation - Jeffrey Boyle MD - 06/17/2021 8:06 PM EDT I reviewed the history, the documented findings, and performed a physical exam of the patient. I agree with Dr. Allred's assessment, and we discussed the management of the patient. See orders. Apparently woke up and followed some commands overnight. Some agitation, now sedated. On 55% and PEEP 10, sat's mid-90s. A: 1. Acute hypoxic respiratory failure 2. COVID-19 3. Uncontrolled DM 4. Super morbid obesity 5. Microcytic anemia: has a history of this P: 1. Continue lasix diuresis. 2. Decrease steroids. Recheck cuff-leak 3. Abx per ID 4 . Lovenox Total critical care time caring for this patient with life threatening, unstable organ failure, including direct patient contact, management of life support systems, review of data including imaging and labs, discussions with other team members and physicians at least 35 minutes so far today, excluding procedures. * Elijah Allred MD - 06/17/2021 5:00 AM EDT ICU Liberation - Multidisciplinary Rounds A: Analgesia/Pain Management B: BOTH Spontaneous Breathing and Spontaneous Awakening Trials (SBT/SAT) C: Choice of Analgesia and Sedation D: Delirium- Assess, Treat, and Manage E: Early Mobility and Exercise F: Family Engagement and Empowerment A: Analgesia Assess Pain Level: 0 (06/16/21 1600) Score CPOT (Vent): 0 (06/16/21 1600) Patient's Stated Pain Goal: No pain (06/13/21 0400) Prevent Continuous Drips: Fentanyl Manage Pain well controlled?: Yes B: BOTH Spontaneous Breathing and Spontaneous Awakening Trials (SBT/SAT) Airway support: O2 Device: Ventilator (06/17/21928) Spontaneous Awakening Trial: Spontaneous Awakening Trial (SAT) RN Doc Absolute Contraindications present?: None (06/06/21799) Relative Contraindications present?: None (06/06/21799) Contacted Provider About Relative Contraindications?v: Yes (No sedation vacation d/t high vent settings per Dr. Hector) (06/06/21799) Did patient fail SAT?: Yes (06/06/21799) Reasons patient failed SAT: Other (comment) (high vent settings) (06/06/21799) RT Notified ready for SBT?: Patient failed SAT (06/04/21732) Spontaneous Breathing Trial: Spontaneous Breathing Trial (SBT) RT Doc Contraindications to SBT?: FiO2 > 50%;PEEP > 10 cm H2O;SpO2 < goal;Failed SAT (06/16/21713) Rate Measured: 26 br/min (06/17/21928) Pulse: 72 (06/17/21928) SpO2: 100 % (06/17/21928) Spontaneous VT: 442 mL (06/05/21 1731) Is patient ventilated?: Yes. HOB up 30-45 degrees?: Yes; CHG Mouth Rinse Ordered?: Yes; Plan for Extubation Today?: Will Reassess C: Choice of Analgesia and Sedation RASS Score: Drowsy - Patient awakens with sustained eye opening and eye contact (06/17/21908) Sedation Goal: RASS: -1 to 1 Current Medications: Diprivan Restraint Order Placed During Rounds?: Yes D: Delirium & Diet Assess CAM-ICU Score: Negative (06/12/211999) Manage Is CAM-ICU Positive?: No Diet Diet NPO ADULT TUBE FEEDING; Orogastric; Immune Enhancing; Continuous; 10; Yes; 10; Q 4 hours; 35; 250; Q 8 hours E: Early Mobility and Exercise PT/OT/Speech consults ordered as appropriate? NA Activity Order No Activity Order Mobility Goal for Today: strict bedrest F: Family Engagement and Empowerment Code Status: Full Code Palliative Care Triggers?: COVID-19 Is Pall Care consulted? Yes Family Communication: Family is not currently present. Invasive Lines / Tubes / Drains CVC Triple Lumen 06/03/21 Right Internal jugular (Active) Number of days: 13 NG/OG/NJ/NE Tube Orogastric Center mouth (Active) Number of days: 13 Urethral Catheter (Active) Number of days: 13 Non-Surgical Airway 06/04/21 Endo Tracheal Tube (Active) Number of days: 13 ETT (adult) (Active) Number of days: 13 Arterial Line 06/04/21 Right Radial (Active) Number of days: 13 Central Line Indication: Vesicant infusions/medications at high risk of causing extravasation [place] Indication: Strict/Hourly I&O Does patient have a PIV in addition to a central line?: Yes - PIV must remain in due to need for additional access Wound Care and Prevention Wound 06/09/21 Buttocks Right Stage II-Wound Etiology: Pressure Stage 2 (06/16/211999) Wound: NA - patient does not have wound(s) Zelalem Score: Zelalem Scale Score: 13 (06/16/21 1200) Wound Care and Prevention: NA - patient does not meet criteria Prophylaxis DVT Prophylaxis: Pharmacologic Prophylaxis: SQ enoxaparin (Lovenox) GI Prophylaxis: Proton pump inhibitor (PPI) * Gino Yun MD - 06/16/2021 8:13 AM EDT Images from the original note were not included. [facility] - Infectious Diseases Attending Progress Note Subjective: Following for COVID pneumonia. Remains in ICU on vent. No further fevers. Vent at 60%/ PEEP 10. Failed occlusion test and now on increased vent settings Decadron dose increased D/w Dr. Johnson Vitals: Patient Vitals for the past 24 hrs: Temp Temp src Pulse Resp SpO2 Weight 06/16/21 0714 55 (!) 88 % 06/16/21 0700 56 26 91 % 06/16/21 0600 99.5 F (37.5 C) Axillary 64 21 94 % (!) 416 lb 11.2 oz (189 kg) 06/16/21 0500 52 24 93 % 06/16/21 0325 53 24 06/16/21 0300 55 24 94 % 06/16/21 0200 51 24 92 % 06/16/21 0100 56 24 91 % 06/16/21 0000 99.8 F (37.7 C) Axillary 59 27 06/15/21 2300 58 24 95 % 06/15/21 2200 100.4 F (38 C) Axillary 67 20 96 % 06/15/21 2120 63 24 97 % 06/15/21 2119 24 100 % 06/15/21 2100 101.7 F (38.7 C) Axillary 64 24 91 % 06/15/21 2000 103.7 F (39.8 C) Axillary 65 24 94 % 06/15/21 1900 69 24 94 % 06/15/21 1800 73 24 94 % 06/15/21 1736 63 23 95 % 06/15/21 1700 64 22 95 % 06/15/21 1600 65 21 95 % 06/15/21 1500 98.8 F (37.1 C) Axillary 65 22 95 % 06/15/21 1400 68 23 96 % 06/15/21 1300 72 18 97 % 06/15/21 1245 62 25 97 % 06/15/21 1200 62 24 96 % 06/15/21 1100 98.2 F (36.8 C) Axillary 67 24 96 % 06/15/21 1000 66 24 95 % 06/15/21 0956 60 24 97 % 06/15/21 0900 59 20 96 % Physical Exam: .Due to the current efforts to prevent transmission of COVID-19 and also the need to preserve PPE for other caregivers, a [id number] encounter with the patient was not performed. That being said, all relevant records and diagnostic tests were reviewed, including laboratory results and imaging. Please reference any relevant documentation elsewhere. Care will be coordinated with the primary service. Labs: Recent Labs 06/14/21 0038 06/14/21 0038 06/14/21 0500 06/15/21 0101 06/15/21 2308 NA 148* < > 148* 146* 145 K 4.6 -- -- 4.5 4.2 CL 110* -- -- 106 107 CO2 33* -- -- 36* 32* BUN 53* -- -- 51* 56* CREATININE 0.73 -- -- 0.88 0.90 GLUCOSE 134* -- -- 157* 223* CALCIUM 9.1 -- -- 9.1 8.8 PROT 6.7 -- -- 6.9 6.6 LABALBU 3.5 -- -- 3.6 3.4* BILITOT 0.6 -- -- 0.9 0.8 ALKPHOS 89 -- -- 87 83 AST 44 -- -- 61* 110* ALT 61* -- -- 68* 133* < > = values in this interval not displayed. Recent Labs 06/14/21 0038 06/15/21 0101 WBC 12.3* 14.4* HGB 12.0 12.4 HCT 38.3 39.6 PLT 229 209 GRANULOCYTES 82.3* 84.4* LYMPHOPCT 9.5* 6.3* MONOPCT 7.9 9.1 LABEOS 0.1* 0.0* BASOPCT 0.2 0.2 NEUTROABS 10.1* 12.2* Micro: 06/12- blood cx- NGTD 06/12- pneumonia PCR panel- negative 06/12- resp cx- in process (stain with GPC pairs/ chains and yeast) 06/08- resp cx- C albicans 06/04- resp cx- rare resp pretty 06/04- pneumonia PCR panel- negative 06/04- Legionella urine Ag- negative 06/04- Strep pneumo urine Ag- negative 06/03- blood cx- negative Quantiferon- negative HIV screen- negative HBsAb- negative HBcAb total- negative HCV Ab- negative IL-6 level- 54.6 OSH: 06/02- COVID PCR + 06/02- Staph aureus PCR- + MSSA Recent Labs 06/14/21 0038 06/15/21 0101 06/15/21 2308 CRP 6.8* 7.0* 7.8* Recent Labs 06/14/21 0038 06/15/21 0101 06/15/21 2308 DDIMER 17.18* 25.22* 23.52* Recent Labs 06/14/21 0038 06/15/21 0101 06/15/21 2308 FERRITIN 46 123 291* Recent Labs 06/14/21 0038 06/15/21 0101 06/15/21 2308 LDH 303* 446* 446* Lines: RIJ TLC (06/02) Radiography/Echo/Other: 06/16 chest xray: Lines/ tubes/ devices: ET and NG tubes are unchanged in position. Right IJ central venous catheter tip overlies distal superior. 2. Lungs and Pleura: Left lower lobe and lingular patchy infiltrate are redemonstrated. No pneumothorax. Small left pleural effusion is not excluded. 3. Heart and mediastinum: Normal cardiomediastinal margin. 4. Bones: Normal osseous structures. 06/14- CXR- Endotracheal tube, NG tube, and right IJ central venous catheter are unchanged in appearance. Borderline cardiomegaly is unchanged. Patchy basilar predominant infiltrates are mildly improved from prior study with hazy left basilar opacity unchanged. No pneumothorax seen. Impression: 1. Mild improvement of patchy bibasilar pulmonary infiltrates. 2. Similar appearance of hazy left basilar opacity likely representing some combination of atelectasis, layering pleural fluid and/or pneumonia. 06/13- CXR- Heart size is at the upper limits of normal. Endotracheal tube, feeding tube, right jugular catheter are unchanged. Streaky basilar infiltrates are similar to the prior examination. There may be a trace left pleural effusion. There is no pneumothorax. There are degenerative changes of the spine. IMPRESSION: No significant change when compared with the previous study. 06/12- CXR- A frontal view of the chest timed 06 is compared to the study dated 06/11/2021. Again identified is an endotracheal tube, enteric tube and right-sided central line. No sizable pneumothorax is seen. The heart is unchanged in size. The mediastinum is unchanged in appearance. There is pulmonary vascular congestion and bilateral pulmonary interstitial edema. This has mildly improved. There are patchy bilateral airspace infiltrates/edema which have also mildly improved. There is increased density in the left lung base which may be related to elevation of the left hemidiaphragm or increasing infiltrate and/or effusion in this region. Follow-up is recommended. 06/11- CXR- A frontal view of the chest timed 612 is compared to the study dated 06/10/2021. Again identified is an endotracheal tube, enteric tube and right-sided central line. No sizable pneumothorax is seen. There are low lung volumes. The heart is unchanged in size. The mediastinum is unchanged in appearance. There are new diffuse bilateral lung infiltrates/edema. Follow-up is recommended. 06/10- CXR- 1. Lines/ tubes/ devices: ET tube tip is below thoracic inlet. NG tube tip extends off large of the image. Right IJ central lumen catheter tip overlies distal SVC, unchanged in position. 2. Lungs and Pleura: Coarsening of bilateral interstitial lung markings with mild pulmonary vascular congestion is redemonstrated. There is fullness of the right hilum. No focal infiltrate or mass. No pneumothorax or pleural effusion. 3. Heart and mediastinum: Normal cardiomediastinal margin. 4. Bones: Thoracic degenerative spondylosis. 06/09- CXR- The various lines and tubes are unchanged. There is a mild degree of pulmonary vascular congestion. No focal consolidation is identified. 06/08- BLE venous US- negative 06/05- CXR- Lines, tubes, and devices: Endotracheal tube has its tip about 5 cm above the gertrudis. NG tube and right IJ central venous catheter unchanged in position Cardiomediastinal silhouette: Heart size is unchanged. Lungs/Pleura: Slight improved aeration of the lungs with persistent diffuse hazy and more confluent opacities, right side greater than left. No sizable pleural effusions. No pneumothorax. Osseous structures/soft tissues: Osseous structures are unchanged. No soft tissue abnormality is detected. 06/04- BLE venous US- 1. There is no evidence of acute deep or superficial venous thrombosis noted in the right lower extremity. 2. There is no evidence of acute deep or superficial venous thrombosis noted in the left lower extremity. 3. Limited study bilateral 06/04- CXR- An endotracheal tube is now present with the tip at the level of the superior margin of the clavicles. A nasogastric tube is now present with the tip beyond the inferior margin of the image but below the diaphragm. A right jugular line is unchanged. There continue to be diffuse bilateral infiltrates. OSH: CTA chest- suboptimal to r/o PE; + infiltrates. Antimicrobials,Start/End Dates: Decadron Remdesivir (06/02; 06/04-06/07) OSH: Solumedrol Remdesivir 200mg IV x1 (06/02) Levaquin Impression: 1. COVID-19 pneumonia with acute hypoxic respiratory failure - dx 06/02 in [facility] - sx onset 1 week prior to admission - exposed to COVID infected (dx 05/26) - unvaccinated by report - intubated (06/04) 2. Elevated D-dimer 3. Mild transaminitis 4. Pancytopenia 5. Morbid obesity (BMI 73) 6. MIGUEL 7. Failed occlusion test Plan: 1. Continue steroids (dose increased); s/p remdesivir and toci x1 (06/04) 2. Initiate antibiotics pending new respiratory cultures 3. Follow resp cx. 4. Check procalcitonin 5. Check MRSA PCR nasal D/w Dr. Johnson and the RN. More that 51% total time 35 Minutes counseling (or coordinating care) and providing discussion regarding COVID. Gino Yun MD * [place] RCP - 06/16/2021 7:15 AM EDT 06/16/21713 Spontaneous Breathing Trial (SBT) RT Doc Contraindications to SBT? FiO2 > 50%;PEEP > 10 cm H2O;SpO2 < goal;Failed SAT Rate Measured 24 br/min Pulse 55 SpO2 (!) 88 % * Elijah Allred MD - 06/16/2021 5:20 AM EDT Images from the original note were not included. ICU Progress Note Jesusita Bledsoe Samanta : 1970(51 y.o.) Date: June 16, 2021 Team: ICU Attending: Dr. Johnson Chief Complaint: shortness of breath following recent covid exposure Subjective: Brief HPI: 51F hx morbid obesity, MIGUEL, asthma admitted 06/03 for covid PNA, now day 13 mechanical ventilation. Has passed SBTs in recent days but is s/p failed cuff leak 06/15 with recent increase in decadron + PEEP recs, and newly acquired LL infiltrate, with ID following. Overnight/AM: - fever of 103.7 which responded to cooling + tylenol. Denies chest pain, worsening SOB. - still with vent asynchrony and notable tachypnea, settings remaining with PEEP 10, FiO2 60% - quite agitated this AM on fentanyl, precedex, and propofol (increased to 20) Review of Systems Unable to perform ROS: Intubated Scheduled Meds: dexamethasone 10 mg Intravenous Q8H furosemide 40 mg Intravenous Daily insulin lispro 3 Units Subcutaneous Q6H gabapentin 300 mg Per G Tube TID Vitamin D 2,000 Units Per G Tube Daily chlorhexidine 15 mL Mouth/Throat BID insulin lispro 0-6 Units Subcutaneous Q6H sodium chloride flush 10 mL Intravenous 2 times per day pantoprazole 40 mg Intravenous Daily And sodium chloride (PF) 10 mL Intravenous Daily ipratropium-albuterol 1 ampule Inhalation 4x daily enoxaparin 40 mg Subcutaneous BID cholestyramine 1 packet Oral Daily sodium chloride flush 5-40 mL Intracatheter Q8H Continuous Infusions: propofol 10 mcg/kg/min (06/16/21 0400) dexmedetomidine 0.4 mcg/kg/hr (06/16/21 0400) fentaNYL 150 mcg/hr (06/16/21 0247) [Held by provider] midazolam Stopped (06/12/21 1542) dextrose sodium chloride PRN meds used in last 24hrs: none Objective: VITALS: BP 133/70 Pulse 52 Temp 99.8 F (37.7 C) (Axillary) Resp 24 Ht 5' 5 (1.651 m) Wt (!) 411 lb 3.2 oz (186.5 kg) SpO2 93% BMI 68.43 kg/m CURRENT PULSE OXIMETRY: SpO2: 93 % I/O: 06/15 0701 - 06/16 0700 In: 1692 [I.V.:626] Out: 1845 [Urine:1845] Ventilator Settings: Vent Mode: AC/VC+ Rate Set: 24 bmp Vt Ordered: 400 mL Pressure Support: 0 cmH20 PEEP/CPAP: 10 FiO2 : 60 % Oxygen Delivery - Invasive Lines and Dates: CVC Triple Lumen 06/03/21 Right Internal jugular 06/03/21 NG/OG/NJ/NE Tube Orogastric Center mouth 06/04/21 Urethral Catheter 06/03/21 Arterial Line 06/04/21 Right Radial Intubation Date: 06/04/21 General Appearance: []WDWN [x]Obese []Cachectic []Thin []ill Skin: Temperature [x]Warm []Cool Rash []Yes []No Tattoo(s) []Yes []No HEENT: Pupils round and react [x]Yes []No Sclera []Icteric []Non-Icteric Conjunctiva []Injected []Non-Injected Pinnae []Normal []Other Dentitian [][employer] [place] Teeth []Dentures Oral Mucosa []Pauline []Moist []Dry Oral ETT [x]Present []Absent Neck: Trachea midline [x]Yes []No Thyromegaly []Yes [x]No Crepitus []Present [x]Absent Jvd []Present [x]Absent Lungs: []Clear []Crackles [x]Wheezes []Rhonchi Respiratory effort []Labored []Non-Labored Heart: Rate [x]Regular []Irregular []Tachycardia []Bradycardia Rhythm [x]Regular []Irregular Murmur []Present [x]Absent Peripheral Edema []Present [x]Absent Abdomen: [x]Soft Bowel Sounds [x]Present []Absent []Tender [x]Non-Tender []Distended []Non-distended Hernia []Present []Absent Organomegaly []Present []Absent []Scar Extremities: Cyanosis []Present []Absent STEELE ([]RUE []RLE []LUE []LLE) Neurologic: QUINAULT []Yes []No Corneal reflexes []Present []Absent Plantar reflexes []Up []Down []Absent Withdraws to tactile [x]Yes []No Follows Commands [x]Yes []No []Unresponsive to verbal []Cranial nerves grossly intact []Sensation grossly intact Psych: Alert [x]yes []no Oriented []x0 []x1 []x2 []x3 Affect []Normal []Flat []Agitated []Anxious []Calm [x]Sedated []NAD [facility] Labs within last 72 hours BMP: Recent Labs 06/14/21 0038 06/14/21 0038 06/14/21 0500 06/15/21 0101 06/15/21 2308 NA 148* < > 148* 146* 145 K 4.6 -- -- 4.5 4.2 CL 110* -- -- 106 107 CO2 33* -- -- 36* 32* BUN 53* -- -- 51* 56* CREATININE 0.73 -- -- 0.88 0.90 CALCIUM 9.1 -- -- 9.1 8.8 MG 2.4* -- -- 2.5* 2.6* PHOS 4.3 -- -- 4.2 4.5 < > = values in this interval not displayed. LFTS: Recent Labs 06/14/213706/15/2110006/15/21 2308 AST 44 61* 110* ALT 61* 68* 133* PROT 6.7 6.9 6.6 LABALBU 3.5 3.6 3.4* BILITOT 0.6 0.9 0.8 ALKPHOS 89 87 83 Glucose: Recent Labs 06/14/21 0025 06/14/21 0038 06/14/21 0507 06/14/21 1152 06/14/21 1717 06/14/21 2332 06/15/21 0101 06/15/21 0538 06/15/21 1250 06/15/21 1827 06/15/21 2308 06/16/21 0006 GLUCOSE -- 134* -- -- -- -- 157* -- -- -- 223* -- POCGLU < > -- 138* 186* 209* 186* -- 148* 187* 163* -- 215* < > = values in this interval not displayed. CBC: Recent Labs 06/14/21 0038 06/15/21100 WBC 12.3* 14.4* HGB 12.0 12.4 HCT 38.3 39.6 PLT 229 209 MCV 71.7* 73.1* RDW 21.4* 21.8* ABGs: Recent Labs 06/14/21 0038 06/15/21 0101 06/15/21 2321 PHART 7.501* 7.518* 7.489* MUD0AMZ 41.9 41.8 42.5 PO2ART 83.7 68.3* 84.9 JPL5TBL 32.0* 33.2* 31.6* [id number] 95.6 92.8* 95.6 FIO2A No data No data No data Lactic Acid: Recent Labs 06/15/21 2308 LACTA 0.9 INR: No results for input(s): INR in the last 72 hours. pro-BNP: No results for input(s): NTPROBNP in the last 72 hours. Cardiac Injury Profile: No results for input(s): CKTOTAL, CKMB, TROPONINI in the last 72 hours. Labs in Last 3 months: Lab Results Component Value Date CHOL 124 06/03/2021 TRIG 90 06/03/2021 HDL 26 (L) 06/03/2021 LDLCHOLESTEROL 80 06/03/2021 TSH 0.869 06/03/2021 VITD25 19 (L) 06/03/2021 INR 1.0 06/03/2021 NTPROBNP 1,248 (H) 06/03/2021 LABA1C 6.1 (A) 06/03/2021 Imaging: CXR 06/15 Frontal portable chest view shows left basilar atelectasis/infiltrate and probably small pleural effusion, not significantly changed from last exam. There is now increased right basilar infiltrates. The heart is borderline enlarged. Tracheal and enteric tubes and right IJ catheter are similar to prior. There is no mediastinal widening or other significant interval change. Cultures: No new cx Assessment and Plan: Active Problems: Pneumonia due to COVID-19 virus Palliative care encounter Resolved Problems: * No resolved hospital problems. * Acute hypoxic resp failure 2/2 COVID 19 PNA on ventilator- improving -intubated since 06/04, ACVC rate 24, TV 400, PIP 27, PEEP 10, FiO2 60 (higher peep since 06/15) -remdesivir course and tocilizumab 06/04 completed - completed diflucan for 7 days, done - duonebs 4 times daily and vitamin D supplementation - analgesia/sedation: fentanyl, propofol - consults: palliative care following - COVID labs: CRP (6.8 --> 7.8), LD (303 --> 446). Procal (wnl) - repeat BLE venous US-no DVT - Last ABG: [7.49 / 43 / / 31] - meds: decadron 6mg daily (11 day course, 06/14) switched to 06/14. Decadron 10 q8 now - plan: failed occlusion test 06/15, will continue to wean vent as tolerated. Will wean d/c precedexand go up on propofol as needed. - will need clarification on official date of first covid related sx presentation Febrile Event, concern for VAP: - CxR (06/16): LLL patchy infiltrate demonstrated - ID consulted, appreciate recs - abx: linezolid + cefepime initiated 06/16 - plan: f/u brooke cultures, MRSA PCR panel, procal, LA. Hypernatremia - improving - Net negative 4L since admission - Water flushes @250 ml, now q8 (from q4) - q6 (from q4) sodium checks. Trend Cr/BUN - Lasix 40 mg now BID (from once daily). Morbid Obesity MIGUEL Asthma - currently on ventilator - palliative following, appreciate input Resolved/stable: Severe Sepsis GERD protonix 40mg daily Chronic diarrhea 2/2 cholecystectomy Milk of mag PRN Transaminitis likely 2/2 systemic inflamm continue to trend Iron deficiency anemia Fluids: nothing running. Net (-) 4L. On Lasix 40 BID E: free water flushes for hyponatremia DVT prophylaxis: Lovenox GI: protonix 40 mg daily Associated attestation - Calderon Johnson DO - 06/16/2021 2:11 PM EDT This patient was seen and personally examined by me. Labs, imaging studies and electronic medical record reviewed. See [x]progress note []H&P []Consult documented by [x]warehouse general laborer []IDALIA which reflects my hpi, pmh, psh, ros, fh, sh as well with my additions, as I discussed with the [x]warehouse general laborer []IDALIA. For my exam, assessment and plan see below. PHYSICAL EXAM: VITALS: BP 133/70 Pulse 68 Temp 99.6 F (37.6 C) (Axillary) Resp 15 Ht 5' 5 (1.651 m) Wt (!) 416 lb 11.2 oz (189 kg) SpO2 99% BMI 69.34 kg/m Objective: 24HR INTAKE/OUTPUT: Intake/Output Summary (Last 24 hours) at 06/16/2021 1401 Last data filed at 06/16/2021 1106 Gross per 24 hour Intake 3467 ml Output 2345 ml Net 1122 ml CURRENT PULSE OXIMETRY: SpO2: 99 % 24HR PULSE OXIMETRY RANGE: SpO2 Av.7 % Min: 88 % Max: 100 % General Appearance: []WDWN [x]Obese []Cachectic []Thin [x]ill Skin: Temperature [x]Warm []Cool / Rash []Yes []No / Tattoo(s) []Yes []No Heent: Pupils round and react []Yes []No Sclera []Icteric [x]Non-Icteric Conjunctiva []Injected []Non-Injected / Pinnae []Normal []Other/ Dentitian []Mary'S [place] Teeth []No Mary'[employer] [place] Teeth []Dentures Oral Mucosa []Pauline []Moist []Dry/ Oral ETT []Present []Absent Neck: Trachea midline []Yes []No/ Thyromegaly []Yes []No/ Crepitus []Present [x]Absent /Jvd []Present [x]Absent / [x]supple Lungs: []Clear []Crackles []Wheezes [x]Rhonchi / Respiratory effort []Labored [x]Non-Labored Heart: []RRR []Irregularly Irregular []murmur present []murmur absent/ Peripheral Edema []Absent []Present Abdomen: [x]Soft Bowel Sounds [x]Present []Absent []Diminished []Hyperactive []Hypoactive []Tender [x]Non-Tender []Distended [x]Non-distended / Hernia []Present []Absent [x]Unable to assess due to body habitus/ Organomegaly []Absent []Present [x]Unable to assess due to body habitus / []Scar Extremities: Cyanosis []Present [x]Absent/ STEELE ([x]RUE [x]RLE [x]LUE [x]LLE) Neurologic: QUINAULT []Yes [x]No Corneal reflexes []Present []Absent / Plantar reflexes []Up []Down []Absent / Withdraws to tactile []Yes []No/ Follows Commands [x]Yes []No []Unresponsive to verbal Psych: Alert []yes [x]no Oriented []x0 []x1 []x2 []x3 / Affect []Normal []Flat []Aggitated []Calm [x]Sedated []NAD []anxious Assessment/Plan As per dr. Allred's A/P. Fever to 103.7,increasing FIO2 requirements,cefepime/linezolid per D,await cultures. Propofol added,D/C precedex. Day 13 on vent,may eventually require trach/peg at this point.Will continue decadron for airway oedema/failed occlusion test,at 4mg IV q 6 hours. LE dopplers negative.CXR appears more congested;will increase lasix to 40 mg BID,monitor renal function and UO. Will be able to remove from isolation on 06.19.21.Care discussed with Dr. Yun. Full Code Start time Hours, stop time Hours. Excluding procedures, the total critical care time caring for this patient with life threatening, unstable organ failure, including direct patient contact, review of medical record, management of life support systems, review of data including imaging and labs, discussions with other team members, patient's family and physicians at least 34 minutes so far today. * Elijah Allred MD - 06/16/2021 5:00 AM EDT ICU Liberation - Multidisciplinary Rounds A: Analgesia/Pain Management B: BOTH Spontaneous Breathing and Spontaneous Awakening Trials (SBT/SAT) C: Choice of Analgesia and Sedation D: Delirium- Assess, Treat, and Manage E: Early Mobility and Exercise F: Family Engagement and Empowerment A: Analgesia Assess Pain Level: 0 (06/16/21 1104) Score CPOT (Vent): 0 (06/16/21 1104) Patient's Stated Pain Goal: No pain (06/13/21 0400) Prevent Acetaminophen, prn Manage Pain well controlled?: Yes B: BOTH Spontaneous Breathing and Spontaneous Awakening Trials (SBT/SAT) Airway support: O2 Device: Ventilator (06/16/21 1247) Spontaneous Awakening Trial: Spontaneous Awakening Trial (SAT) RN Doc Absolute Contraindications present?: None (06/06/21 08) Relative Contraindications present?: None (06/06/21799) Contacted Provider About Relative Contraindications?v: Yes (No sedation vacation d/t high vent settings per Dr. Hector) (06/06/21 08) Did patient fail SAT?: Yes (06/06/21799) Reasons patient failed SAT: Other (comment) (high vent settings) (06/06/21 08) RT Notified ready for SBT?: Patient failed SAT (06/04/21 07) Spontaneous Breathing Trial: Spontaneous Breathing Trial (SBT) RT Doc Contraindications to SBT?: FiO2 > 50%;PEEP > 10 cm H2O;SpO2 < goal;Failed SAT (06/16/21 0714) Rate Measured: 27 br/min (06/16/21 1250) Pulse: 68 (06/16/21 1250) SpO2: 99 % (06/16/21 1250) Spontaneous VT: 442 mL (06/05/21 1731) Is patient ventilated?: Yes. HOB up 30-45 degrees?: Yes; CHG Mouth Rinse Ordered?: Yes; Plan for Extubation Today?: Yes C: Choice of Analgesia and Sedation RASS Score: Alert and calm (06/16/21 1104) Sedation Goal: RASS: -1 to 1 Current Medications: Propofol Restraint Order Placed During Rounds?: Yes D: Delirium & Diet Assess CAM-ICU Score: Negative (06/12/211999) Manage Is CAM-ICU Positive?: No Diet Diet NPO ADULT TUBE FEEDING; Orogastric; Immune Enhancing; Continuous; 10; Yes; 10; Q 4 hours; 10; 250; Q 8 hours E: Early Mobility and Exercise PT/OT/Speech consults ordered as appropriate? NA Activity Order No Activity Order Mobility Goal for Today: strict bedrest F: Family Engagement and Empowerment Code Status: Full Code Palliative Care Triggers?: COVID-19 Is Pall Care consulted? Yes Family Communication: Family is not currently present. Invasive Lines / Tubes / Drains CVC Triple Lumen 06/03/21 Right Internal jugular (Active) Number of days: 13 NG/OG/NJ/NE Tube Orogastric Center mouth (Active) Number of days: 12 Urethral Catheter (Active) Number of days: 13 Non-Surgical Airway 06/04/21 Endo Tracheal Tube (Active) Number of days: 12 ETT (adult) (Active) Number of days: 12 Arterial Line 06/04/21 Right Radial (Active) Number of days: 12 Central Line Indication: Inadequate peripheral access with frequent lab draws (at least every 6 hours) [place] Indication: Strict/Hourly I&O Does patient have a PIV in addition to a central line?: Yes - PIV must remain in due to need for additional access Wound Care and Prevention Wound 06/09/21 Buttocks Right Stage II-Wound Etiology: Pressure Stage 2 (06/16/21 1100) Wound: NA - patient does not have wound(s) Zelalem Score: Zelalem Scale Score: 13 (06/16/21 1200) Wound Care and Prevention: NA - patient does not meet criteria Prophylaxis DVT Prophylaxis: Pharmacologic Prophylaxis: SQ enoxaparin (Lovenox) BID due to weight class GI Prophylaxis: Proton pump inhibitor (PPI) * Elijah Walker MD - 06/15/2021 1:01 PM EDT ICU Liberation - Multidisciplinary Rounds A: Analgesia/Pain Management B: BOTH Spontaneous Breathing and Spontaneous Awakening Trials (SBT/SAT) C: Choice of Analgesia and Sedation D: Delirium- Assess, Treat, and Manage E: Early Mobility and Exercise F: Family Engagement and Empowerment A: Analgesia Assess Pain Level: 0 (06/15/21 0400) Score CPOT (Vent): 0 (06/15/21 1100) Patient's Stated Pain Goal: No pain (06/13/21 0400) Prevent Acetaminophen, prn and Continuous drip(s): fentanyl, propofol, precedex Manage Pain well controlled?: Yes B: BOTH Spontaneous Breathing and Spontaneous Awakening Trials (SBT/SAT) Airway support: O2 Device: Ventilator (06/15/21 1243) Spontaneous Awakening Trial: Spontaneous Awakening Trial (SAT) RN Doc Absolute Contraindications present?: None (06/06/21799) Relative Contraindications present?: None (06/06/21799) Contacted Provider About Relative Contraindications?v: Yes (No sedation vacation d/t high vent settings per Dr. Hector) (06/06/21 08) Did patient fail SAT?: Yes (06/06/21799) Reasons patient failed SAT: Other (comment) (high vent settings) (06/06/21 08) RT Notified ready for SBT?: Patient failed SAT (06/04/21732) Spontaneous Breathing Trial: Spontaneous Breathing Trial (SBT) RT Doc Contraindications to SBT?: FiO2 > 50% (06/15/21 06) Rate Measured: 24 br/min (06/15/21 1245) Pulse: 62 (06/15/21 1245) SpO2: 97 % (06/15/21 1245) Spontaneous VT: 442 mL (06/05/21 1731) Is patient ventilated?: Yes. HOB up 30-45 degrees?: Yes; CHG Mouth Rinse Ordered?: Yes; Plan for Extubation Today?: No C: Choice of Analgesia and Sedation RASS Score: Restless (06/15/21 0918) Sedation Goal: RASS: -1 to 1 Current Medications: Dexmedetomidine Restraint Order Placed During Rounds?: Yes D: Delirium & Diet Assess CAM-ICU Score: Negative (06/12/211999) Manage Is CAM-ICU Positive?: No Diet Diet NPO ADULT TUBE FEEDING; Orogastric; Immune Enhancing; Continuous; 10; Yes; 10; Q 4 hours; 10; 250; Q 4 hours E: Early Mobility and Exercise PT/OT/Speech consults ordered as appropriate? No Activity Order No Activity Order Mobility Goal for Today: strict bedrest F: Family Engagement and Empowerment Code Status: Full Code Palliative Care Triggers?: COVID-19 Is Pall Care consulted? Yes Family Communication: Family is not currently present. Invasive Lines / Tubes / Drains CVC Triple Lumen 06/03/21 Right Internal jugular (Active) Number of days: 11 NG/OG/NJ/NE Tube Orogastric Center mouth (Active) Number of days: 11 Urethral Catheter (Active) Number of days: 12 Non-Surgical Airway 06/04/21 Endo Tracheal Tube (Active) Number of days: 11 ETT (adult) (Active) Number of days: 11 Arterial Line 06/04/21 Right Radial (Active) Number of days: 11 Central Line Indication: Vesicant infusions/medications at high risk of causing extravasation [place] Indication: Obstruction or recent urologic surgery Does patient have a PIV in addition to a central line?: No. The patient does not have any PIVs Wound Care and Prevention Wound 06/09/21 Buttocks Right Stage II-Wound Etiology: Pressure Stage 2 (06/15/21 0800) Wound: Hospital Acquired Zelalem Score: Zelalem Scale Score: 14 (06/14/212023) Wound Care and Prevention: NA - patient does not meet criteria Prophylaxis DVT Prophylaxis: Pharmacologic Prophylaxis: SQ enoxaparin (Lovenox) GI Prophylaxis: Proton pump inhibitor (PPI) * Merari De Souza RCP - 06/15/2021 10:03 AM EDT Sputum sample collected and sent to lab * Cassandra Grider RCP - 06/15/2021 6:52 AM EDT 06/15/21 0600 Spontaneous Breathing Trial (SBT) RT Doc Contraindications to SBT? FiO2 > 50% * Elijah Walker MD - 06/15/2021 6:16 AM EDT Images from the original note were not included. ICU Progress Note Jesusita England : 1970(51 y.o.) Date: June 15, 2021 Team: ICU Attending: Dr. Johnson Chief Complaint:acute hypoxic respiratory failure 2/2 covid 19 PNA Subjective: Overnight needed more oxygen requirements. PEEP increased to 10, FiO2 increased to 60% Seen and examined this am. Agitated, will add propofol as sedative. Review of Systems Unable to perform ROS: Intubated Scheduled Meds: dexamethasone 10 mg Intravenous Q8H furosemide 40 mg Intravenous Daily insulin lispro 3 Units Subcutaneous Q6H gabapentin 300 mg Per G Tube TID Vitamin D 2,000 Units Per G Tube Daily chlorhexidine 15 mL Mouth/Throat BID insulin lispro 0-6 Units Subcutaneous Q6H sodium chloride flush 10 mL Intravenous 2 times per day pantoprazole 40 mg Intravenous Daily And sodium chloride (PF) 10 mL Intravenous Daily ipratropium-albuterol 1 ampule Inhalation 4x daily enoxaparin 40 mg Subcutaneous BID cholestyramine 1 packet Oral Daily sodium chloride flush 5-40 mL Intracatheter Q8H Continuous Infusions: dexmedetomidine 0.477 mcg/kg/hr (06/15/21 0546) fentaNYL 150 mcg/hr (06/15/21 0543) midazolam Stopped (06/12/21 1542) dextrose sodium chloride PRN meds used in last 24hrs: none Objective: VITALS: BP 133/70 Pulse 84 Temp 98.5 F (36.9 C) (Axillary) Resp 27 Ht 5' 5 (1.651 m) Wt (!) 411 lb 3.2 oz (186.5 kg) SpO2 96% BMI 68.43 kg/m CURRENT PULSE OXIMETRY: SpO2: 96 % I/O: 06/14 07 - 06/15 07 In: 2802 [I.V.:867] Out: 3985 [Urine:3985] Ventilator Settings: Vent Mode: AC/VC+ Rate Set: 18 bmp Vt Ordered: 400 mL Pressure Support: 0 cmH20 PEEP/CPAP: 10 FiO2 : 60 % Oxygen Delivery - Invasive Lines and Dates: CVC Triple Lumen 06/03/21 Right Internal jugular 06/03/21 NG/OG/NJ/NE Tube Orogastric Center mouth 06/04/21 Urethral Catheter 06/03/21 Arterial Line 06/04/21 Right Radial Intubation Date: 06/04/21 General Appearance: []WDWN [x]Obese []Cachectic []Thin []ill Skin: Temperature [x]Warm []Cool Rash []Yes []No Tattoo(s) []Yes []No HEENT: Pupils round and react [x]Yes []No Sclera []Icteric []Non-Icteric Conjunctiva []Injected []Non-Injected Pinnae []Normal []Other Dentitian [][employer] [place] Teeth []Dentures Oral Mucosa []Pauline []Moist []Dry Oral ETT [x]Present []Absent Neck: Trachea midline [x]Yes []No Thyromegaly []Yes [x]No Crepitus []Present [x]Absent Jvd []Present [x]Absent Lungs: []Clear []Crackles [x]Wheezes []Rhonchi Respiratory effort []Labored []Non-Labored Heart: Rate [x]Regular []Irregular []Tachycardia []Bradycardia Rhythm [x]Regular []Irregular Murmur []Present [x]Absent Peripheral Edema []Present [x]Absent Abdomen: [x]Soft Bowel Sounds [x]Present []Absent []Tender [x]Non-Tender []Distended []Non-distended Hernia []Present []Absent Organomegaly []Present []Absent []Scar Extremities: Cyanosis []Present []Absent STEELE ([]RUE []RLE []LUE []LLE) Neurologic: QUINAULT []Yes []No Corneal reflexes []Present []Absent Plantar reflexes []Up []Down []Absent Withdraws to tactile [x]Yes []No Follows Commands [x]Yes []No []Unresponsive to verbal []Cranial nerves grossly intact []Sensation grossly intact Psych: Alert [x]yes []no Oriented []x0 []x1 []x2 []x3 Affect []Normal []Flat []Agitated []Anxious []Calm [x]Sedated []NAD [facility] Labs within last 72 hours BMP: Recent Labs 06/13/21 0005 06/13/21 0830 06/14/21 0038 06/14/21 0500 06/15/21 0101 NA 149* < > 148* 148* 146* K 4.5 -- 4.6 -- 4.5 CL 111* -- 110* -- 106 CO2 32* -- 33* -- 36* BUN 56* -- 53* -- 51* CREATININE 0.72 -- 0.73 -- 0.88 CALCIUM 8.9 -- 9.1 -- 9.1 MG 2.5* -- 2.4* -- 2.5* PHOS 4.4 -- 4.3 -- 4.2 < > = values in this interval not displayed. LFTS: Recent Labs 06/13/21 0005 06/14/21 0038 06/15/21 010 AST 36 44 61* ALT 62* 61* 68* PROT 6.5 6.7 6.9 LABALBU 3.3* 3.5 3.6 BILITOT 0.5 0.6 0.9 ALKPHOS 82 89 87 Glucose: Recent Labs 06/13/21 0005 06/13/21 0011 06/13/21 1101 06/13/21 1710 06/14/21 0025 06/14/21 0038 06/14/21 0507 06/14/21 1152 06/14/21 1717 06/14/21 2332 06/15/21 0101 06/15/21 0538 GLUCOSE 131* -- -- -- -- 134* -- -- -- -- 157* -- POCGLU -- < > 159* 174* 122* -- 138* 186* 209* 186* -- 148* < > = values in this interval not displayed. CBC: Recent Labs 06/13/21 0005 06/14/218 06/15/21100 WBC 12.2* 12.3* 14.4* HGB 11.4* 12.0 12.4 HCT 36.4 38.3 39.6 PLT 243 229 209 MCV 71.4* 71.7* 73.1* RDW 21.1* 21.4* 21.8* ABGs: Recent Labs 06/13/21 1228 06/14/21 0038 06/15/21 010 PHART 7.480* 7.501* 7.518* [id number] 43.4 41.9 41.8 PO2ART 63.5* 83.7 68.3* [id number] 31.6* 32.0* 33.2* [id number] 92.1* 95.6 92.8* FIO2A No data No data No data Lactic Acid: No results for input(s): LACTA in the last 72 hours. INR: No results for input(s): INR in the last 72 hours. pro-BNP: No results for input(s): NTPROBNP in the last 72 hours. Cardiac Injury Profile: No results for input(s): CKTOTAL, CKMB, TROPONINI in the last 72 hours. Labs in Last 3 months: Lab Results Component Value Date CHOL 124 06/03/2021 TRIG 90 06/03/2021 HDL 26 (L) 06/03/2021 LDLCHOLESTEROL 80 06/03/2021 TSH 0.869 06/03/2021 VITD25 19 (L) 06/03/2021 INR 1.0 06/03/2021 NTPROBNP 1,248 (H) 06/03/2021 LABA1C 6.1 (A) 06/03/2021 Imaging: CXR 06/15 Frontal portable chest view shows left basilar atelectasis/infiltrate and probably small pleural effusion, not significantly changed from last exam. There is now increased right basilar infiltrates. The heart is borderline enlarged. Tracheal and enteric tubes and right IJ catheter are similar to prior. There is no mediastinal widening or other significant interval change. Cultures: No new cx Assessment and Plan: Active Problems: Pneumonia due to COVID-19 virus Palliative care encounter Resolved Problems: * No resolved hospital problems. * #acute hypoxic resp failure 2/2 COVID 19 PNA on ventilator- resolving #severe sepsis 2/2 above- resolved #asthma #leukopenia -intubated since 06/04,ACVC rate 18, PIP 19, PEEP 10, FiO2 60 -continue weaning off vent as appropriate, failed occlusion test yesterday. Now requiring higher vent settings -decadron 6mg daily (day 11) stoped 06/14. Decadron 10 q8 now -ID consulted, appreciate recs -remdesivir course and tocilizumab 06/04 completed -diflucan for 7 days, done -Repeat BLE venous US-no DVT -duonebs 4 times daily -vitamin d supplements -fentanyl and propofol for sedation -palliative care following -CRP 6.1, LD 269 -procal WNL -gram stain positive only for a few yeast -continue to monitor -continue to wean vent as tolerated #Hypernatremia - Water flushes @250 ml -q4 sodium checks -146 - D/C'd lasix #transaminitis, resolving -baseline unclear, no significant hx -ALT 61, AST 68 (most recent) -Hep panel and HIV screen negative -most likely 2/2 systemic inflammation -continue to trend #iron deficiency anemia, resolving -Hg 12.4 most recently (11.8 on admission) -stable -iron studies showing iron deficiency -hold iron replacement in setting of sepsis #GERD -protonix 40mg daily #chronic diarrhea -2/2 cholecystectomy -Milk of mag PRN #super morbid obesity #MIGUEL -currently on ventilator -palliative following, appreciate input DVT prophylaxis: Lovenox Associated attestation - Calderon Johnson DO - 06/15/2021 9:56 PM EDT This patient was seen and personally examined by me. Labs, imaging studies and electronic medical record reviewed. See [x]progress note []H&P []Consult documented by [x]warehouse general laborer []IDALIA which reflects my hpi, pmh, psh, ros, fh, sh as well with my additions, as I discussed with the [x]warehouse general laborer []IDALIA. For my exam, assessment and plan see below. PHYSICAL EXAM: VITALS: BP 133/70 Pulse 63 Temp 98.8 F (37.1 C) (Axillary) Resp 23 Ht 5' 5 (1.651 m) Wt (!) 411 lb 3.2 oz (186.5 kg) SpO2 95% BMI 68.43 kg/m Objective: 24HR INTAKE/OUTPUT: Intake/Output Summary (Last 24 hours) at 06/15/2021 1809 Last data filed at 06/15/2021 1600 Gross per 24 hour Intake 1451 ml Output 2535 ml Net -1084 ml CURRENT PULSE OXIMETRY: SpO2: 95 % 24HR PULSE OXIMETRY RANGE: SpO2 Av.4 % Min: 90 % Max: 97 % General Appearance: []WDWN [x]Obese []Cachectic []Thin []ill Skin: Temperature [x]Warm []Cool / Rash []Yes [x]No / Tattoo(s) []Yes []No Heent: Pupils round and react [x]Yes []No Sclera []Icteric []Non-Icteric Conjunctiva []Injected []Non-Injected / Pinnae [x]Normal []Other/ Dentitian [x]Mary'S [place] Teeth []No Mary'[employer] [place] Teeth []Dentures Oral Mucosa [x]Pauline []Moist []Dry/ Oral ETT [x]Present []Absent Neck: Trachea midline [x]Yes []No/ Thyromegaly []Yes [x]No/ Crepitus []Present [x]Absent /Jvd []Present []Absent / []supple Lungs: []Clear []Crackles []Wheezes [x]Rhonchi / Respiratory effort []Labored [x]Non-Labored Heart: [x]RRR []Irregularly Irregular []murmur present []murmur absent/ Peripheral Edema [x]Absent []Present Abdomen: [x]Soft Bowel Sounds [x]Present []Absent []Diminished []Hyperactive []Hypoactive []Tender []Non-Tender []Distended [x]Non-distended / Hernia []Present [x]Absent []Unable to assess due to body habitus/ Organomegaly [x]Absent []Present[]Unable to assess due to body habitus / []Scar Extremities: Cyanosis []Present [x]Absent/ STEELE ([x]RUE [x]RLE [x]LUE [x]LLE) Neurologic: QUINAULT []Yes []No Corneal reflexes []Present []Absent / Plantar reflexes []Up []Down []Absent / Withdraws to tactile [x]Yes []No/ Follows Commands [x]Yes []No []Unresponsive to verbal Psych: Alert [x]yes []no Oriented []x0 []x1 []x2 []x3 / Affect []Normal []Flat []Aggitated []Calm []Sedated []NAD []anxious Assessment/Plan As per resident A/P. Increasing O2 requirements as noted. Sputum culture sent for new infiltrate developing RLL. Dopplers LE negative. Diurese as needed. Failed occlusion test yesterday,decadron increased.Propofol added for agitation.tolerating tube feeds. Continue present care in ICU. Full Code Start time Hours, stop time Hours. Excluding procedures, the total critical care time caring for this patient with life threatening, unstable organ failure, including direct patient contact, review of medical record, management of life support systems, review of data including imaging and labs, discussions with other team members, patient's family and physicians at least 32 minutes so far today. * Elijah Walker MD - 06/14/2021 2:50 PM EDT ICU Liberation - Multidisciplinary Rounds A: Analgesia/Pain Management B: BOTH Spontaneous Breathing and Spontaneous Awakening Trials (SBT/SAT) C: Choice of Analgesia and Sedation D: Delirium- Assess, Treat, and Manage E: Early Mobility and Exercise F: Family Engagement and Empowerment A: Analgesia Assess Pain Level: 0 (06/14/21399) Score CPOT (Vent): 1 (06/14/21799) Patient's Stated Pain Goal: No pain (06/13/21399) Prevent Acetaminophen, prn and Narcotic(s), prn: fentatnyl, morphine Manage Pain well controlled?: Yes B: BOTH Spontaneous Breathing and Spontaneous Awakening Trials (SBT/SAT) Airway support: O2 Device: Ventilator (06/14/21 1251) Spontaneous Awakening Trial: Spontaneous Awakening Trial (SAT) RN Doc Absolute Contraindications present?: None (06/06/21799) Relative Contraindications present?: None (06/06/21799) Contacted Provider About Relative Contraindications?v: Yes (No sedation vacation d/t high vent settings per Dr. Hector) (06/06/21799) Did patient fail SAT?: Yes (06/06/21799) Reasons patient failed SAT: Other (comment) (high vent settings) (06/06/21799) RT Notified ready for SBT?: Patient failed SAT (06/04/21 07) Spontaneous Breathing Trial: Spontaneous Breathing Trial (SBT) RT Doc Contraindications to SBT?: None (07/16/21 0400) Rate Measured: 25 br/min (06/14/21 1300) Pulse: 74 (06/14/21 1300) SpO2: 93 % (06/14/21 1300) Spontaneous VT: 442 mL (06/05/21 1731) Is patient ventilated?: Yes. HOB up 30-45 degrees?: Yes; CHG Mouth Rinse Ordered?: Yes; Plan for Extubation Today?: Will Reassess C: Choice of Analgesia and Sedation RASS Score: Drowsy - Patient awakens with sustained eye opening and eye contact (06/14/21 0929) Sedation Goal: RASS: -1 to 1 Current Medications: Dexmedetomidine Restraint Order Placed During Rounds?: Yes D: Delirium & Diet Assess CAM-ICU Score: Negative (06/12/211999) Manage Is CAM-ICU Positive?: No Diet Diet NPO ADULT TUBE FEEDING; Orogastric; Immune Enhancing; Continuous; 10; Yes; 10; Q 4 hours; 35; 250; Q 4 hours E: Early Mobility and Exercise PT/OT/Speech consults ordered as appropriate? No Activity Order No Activity Order Mobility Goal for Today: strict bedrest F: Family Engagement and Empowerment Code Status: Full Code Palliative Care Triggers?: COVID-19 Is Pall Care consulted? Yes Family Communication: Family is not currently present. Invasive Lines / Tubes / Drains CVC Triple Lumen 06/03/21 Right Internal jugular (Active) Number of days: 11 NG/OG/NJ/NE Tube Orogastric Center mouth (Active) Number of days: 10 Urethral Catheter (Active) Number of days: 11 Non-Surgical Airway 06/04/21 Endo Tracheal Tube (Active) Number of days: 10 ETT (adult) (Active) Number of days: 10 Arterial Line 06/04/21 Right Radial (Active) Number of days: 10 Central Line Indication: Vesicant infusions/medications at high risk of causing extravasation [place] Indication: Obstruction or recent urologic surgery Does patient have a PIV in addition to a central line?: No. The patient does not have any PIVs Wound Care and Prevention Wound 06/09/21 Buttocks Right Stage II-Wound Etiology: Pressure Stage 2 (06/14/21 0800) Wound: Hospital Acquired Zelalem Score: Zelalem Scale Score: 14 (06/14/21 0800) Wound Care and Prevention: NA - patient does not meet criteria Prophylaxis DVT Prophylaxis: Pharmacologic Prophylaxis: SQ enoxaparin (Lovenox) GI Prophylaxis: Proton pump inhibitor (PPI) * Miguel Ángel Bellamy RCP - 06/14/2021 10:02 AM EDT [facility] Respiratory Care Department Progress Note Spontaneous Breathing Trial (SBT) Start: 2-3 min to Stabilize After 15 min After 30 min HR 56 76 86 SpO2 (%) 91 94 92 RR 32 24 30 VT (L) 466 539 486 Total RSBI (RR/VT in Liters) 68 44 61 Pass SBT (RSBI must be?105 to pass) NA NA Yes Comments (state reason if SBT failed): pt placed on TC trial, vitals stable pt failed occlusion test=no Vt drop or leak auscultated, even performed NIF with cuff deflated and pt did -36, staff informed Additional data if requested: NIF = -37 VC = 672mL Name of physician results were reported to: Dr Johnson Time results reported to physician: yes Thank you for involving [facility] in the care of this patient, * Fina Desir MD - 06/14/2021 8:47 AM EDT Images from the original note were not included. [facility] - Infectious Diseases Attending Progress Note Subjective: Following for COVID pneumonia. Remains in ICU on vent. No further fevers. Vent at 40%/ PEEP 8. More awake on vent. Possible extubation later today. Vitals: Patient Vitals for the past 24 hrs: Temp Temp src Pulse Resp SpO2 Height Weight 06/14/21 0727 5' 5 (1.651 m) 06/14/21 0600 63 18 95 % 06/14/21 0500 55 16 94 % 06/14/21 0400 56 19 93 % (!) 424 lb 1.6 oz (192.4 kg) 06/14/21 0300 55 19 93 % 06/14/21 0200 55 17 94 % 06/14/21 0100 56 16 93 % 06/14/21 0000 97.9 F (36.6 C) Axillary 64 17 93 % 06/13/21 2300 61 18 92 % 06/13/21 2200 56 15 06/13/21 2100 57 15 06/13/21 2008 59 16 06/13/21 2000 97.7 F (36.5 C) Axillary 59 16 06/13/21 1900 62 15 06/13/21 1818 56 17 06/13/21 1800 56 17 06/13/21 1700 63 10 06/13/21 1600 74 16 06/13/21 1500 97.6 F (36.4 C) 72 15 93 % 06/13/21 1400 83 21 96 % 06/13/21 1320 68 22 93 % 06/13/21 1100 64 12 93 % 06/13/21 1000 67 12 93 % 06/13/21 0945 68 14 94 % 06/13/21 0930 62 12 94 % 06/13/21 0928 64 11 94 % 5' 5 (1.651 m) Physical Exam: Physical Exam Vitals and nursing note reviewed. Constitutional: Comments: On vent HENT: Head: Normocephalic and atraumatic. Right Ear: External ear normal. Left Ear: External ear normal. Nose: Nose normal. Mouth/Throat: Comments: + ETT Eyes: Extraocular Movements: Extraocular movements intact. Pupils: Pupils are equal, round, and reactive to light. Cardiovascular: Comments: Distant sounds Pulmonary: Comments: Distance due to habitus; breathing above vent Abdominal: Comments: Large pannus Musculoskeletal: General: No tenderness. Right lower leg: Edema present. Left lower leg: Edema present. Skin: General: Skin is warm. Findings: No erythema or rash. Neurological: Mental Status: She is alert. 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 5/5-- would not let go Psychiatric: Comments: Unable to assess Labs: Recent Labs 06/12/21 0025 06/12/21 0713 06/13/21 0005 06/13/21 0830 06/13/21 1711 06/14/21 0038 06/14/21 0500 NA 149* < > 149* < > 148* 148* 148* K 4.4 -- 4.5 -- -- 4.6 -- CL 111* -- 111* -- -- 110* -- CO2 34* -- 32* -- -- 33* -- BUN 59* -- 56* -- -- 53* -- CREATININE 0.82 -- 0.72 -- -- 0.73 -- GLUCOSE 139* -- 131* -- -- 134* -- CALCIUM 9.0 -- 8.9 -- -- 9.1 -- PROT 6.6 -- 6.5 -- -- 6.7 -- LABALBU 3.4* -- 3.3* -- -- 3.5 -- BILITOT 0.5 -- 0.5 -- -- 0.6 -- ALKPHOS 82 -- 82 -- -- 89 -- AST 42 -- 36 -- -- 44 -- ALT 61* -- 62* -- -- 61* -- < > = values in this interval not displayed. Recent Labs 06/12/21 0025 06/13/21 0005 06/14/21 0038 WBC 11.1* 12.2* 12.3* HGB 11.3* 11.4* 12.0 HCT 35.9 36.4 38.3 PLT 266 243 229 GRANULOCYTES -- 80.6* 82.3* LYMPHOPCT -- 8.4* 9.5* MONOPCT 7 9.7 7.9 LABEOS 1 0.1* 0.1* BASOPCT 0 1.2 0.2 NEUTROABS 9.4* 9.9* 10.1* Micro: 06/12- blood cx- NGTD 06/12- pneumonia PCR panel- negative 06/12- resp cx- in process (stain with GPC pairs/ chains and yeast) 06/08- resp cx- C albicans 06/04- resp cx- rare resp pretty 06/04- pneumonia PCR panel- negative 06/04- Legionella urine Ag- negative 06/04- Strep pneumo urine Ag- negative 06/03- blood cx- negative Quantiferon- negative HIV screen- negative HBsAb- negative HBcAb total- negative HCV Ab- negative IL-6 level- 54.6 OSH: 06/02- COVID PCR + 06/02- Staph aureus PCR- + MSSA Recent Labs 06/12/21 0025 06/13/21 0005 06/14/21 0038 CRP 6.1* 5.9 6.8* Recent Labs 06/12/21 0030 06/13/21 0005 06/14/21 003 DDIMER 23.25* 18.71* 17.18* Recent Labs 06/12/21 0025 06/13/21 0005 06/14/21 0038 FERRITIN 42 42 46 Recent Labs 06/12/21 0025 06/13/21 0005 06/14/21 003 LDH 269* 272* 303* Lines: RIJ TLC (06/02) Radiography/Echo/Other: 06/14- CXR- Endotracheal tube, NG tube, and right IJ central venous catheter are unchanged in appearance. Borderline cardiomegaly is unchanged. Patchy basilar predominant infiltrates are mildly improved from prior study with hazy left basilar opacity unchanged. No pneumothorax seen. Impression: 1. Mild improvement of patchy bibasilar pulmonary infiltrates. 2. Similar appearance of hazy left basilar opacity likely representing some combination of atelectasis, layering pleural fluid and/or pneumonia. 06/13- CXR- Heart size is at the upper limits of normal. Endotracheal tube, feeding tube, right jugular catheter are unchanged. Streaky basilar infiltrates are similar to the prior examination. There may be a trace left pleural effusion. There is no pneumothorax. There are degenerative changes of the spine. IMPRESSION: No significant change when compared with the previous study. 06/12- CXR- A frontal view of the chest timed 0604 is compared to the study dated 06/11/2021. Again identified is an endotracheal tube, enteric tube and right-sided central line. No sizable pneumothorax is seen. The heart is unchanged in size. The mediastinum is unchanged in appearance. There is pulmonary vascular congestion and bilateral pulmonary interstitial edema. This has mildly improved. There are patchy bilateral airspace infiltrates/edema which have also mildly improved. There is increased density in the left lung base which may be related to elevation of the left hemidiaphragm or increasing infiltrate and/or effusion in this region. Follow-up is recommended. 06/11- CXR- A frontal view of the chest timed 0613 is compared to the study dated 06/10/2021. Again identified is an endotracheal tube, enteric tube and right-sided central line. No sizable pneumothorax is seen. There are low lung volumes. The heart is unchanged in size. The mediastinum is unchanged in appearance. There are new diffuse bilateral lung infiltrates/edema. Follow-up is recommended. 06/10- CXR- 1. Lines/ tubes/ devices: ET tube tip is below thoracic inlet. NG tube tip extends off large of the image. Right IJ central lumen catheter tip overlies distal SVC, unchanged in position. 2. Lungs and Pleura: Coarsening of bilateral interstitial lung markings with mild pulmonary vascular congestion is redemonstrated. There is fullness of the right hilum. No focal infiltrate or mass. No pneumothorax or pleural effusion. 3. Heart and mediastinum: Normal cardiomediastinal margin. 4. Bones: Thoracic degenerative spondylosis. 06/09- CXR- The various lines and tubes are unchanged. There is a mild degree of pulmonary vascular congestion. No focal consolidation is identified. 06/08- BLE venous US- negative 06/05- CXR- Lines, tubes, and devices: Endotracheal tube has its tip about 5 cm above the gertrudis. NG tube and right IJ central venous catheter unchanged in position Cardiomediastinal silhouette: Heart size is unchanged. Lungs/Pleura: Slight improved aeration of the lungs with persistent diffuse hazy and more confluent opacities, right side greater than left. No sizable pleural effusions. No pneumothorax. Osseous structures/soft tissues: Osseous structures are unchanged. No soft tissue abnormality is detected. 06/04- BLE venous US- 1. There is no evidence of acute deep or superficial venous thrombosis noted in the right lower extremity. 2. There is no evidence of acute deep or superficial venous thrombosis noted in the left lower extremity. 3. Limited study bilateral 06/04- CXR- An endotracheal tube is now present with the tip at the level of the superior margin of the clavicles. A nasogastric tube is now present with the tip beyond the inferior margin of the image but below the diaphragm. A right jugular line is unchanged. There continue to be diffuse bilateral infiltrates. OSH: CTA chest- suboptimal to r/o PE; + infiltrates. Antimicrobials,Start/End Dates: Decadron Remdesivir (06/02; 06/04-06/07) OSH: Solumedrol Remdesivir 200mg IV x1 (06/02) Levaquin Impression: 1. COVID-19 pneumonia with acute hypoxic respiratory failure - dx 06/02 in [facility] - sx onset 1 week prior to admission - exposed to COVID infected (dx 05/26) - unvaccinated by report - intubated (06/04) 2. Elevated D-dimer 3. Mild transaminitis 4. Pancytopenia 5. Morbid obesity (BMI 73) 6. MIGUEL Plan: 1. Continue steroids; s/p remdesivir and toci x1 (06/04) 2. Monitor off of abx. 3. Follow resp cx. 4. Follow blood cx. Likely plans for extubation soon. Drs. Orosco and Court cover this weekend if needed. D/w Dr. Johnson and the RN. More that 51% total time 25 Minutes counseling (or coordinating care) and providing discussion regarding COVID. Fina Desir MD * Tori Milton RD, LD - 06/14/2021 7:33 AM EDT Comprehensive Nutrition Assessment Type and Reason for Visit: Reassess Nutrition Recommendations/Plan: 1. Pt is receiving and tolerating: Pivot 1.5 (Immune Enhancing Formula) @ goal rate of 35mls/hr to provide 1260kcals, 78gm protein, 637mL free fluid (22kcals/kg, 1.4gm/kg IBW) which is appropriate. Noted pt passed SBT yesterday with plans to repeat today with possible extubation. Will monitor. If pt is extubated recommend goal oral diet of CHO Controlled (45gm CHO/meal) to promote healthy weight loss with texture/consistency per ATTENDANT LODGING [employer]ACILITIES/MD recommendations. 2. Will continue to monitor tolerance of nutrition via appropriate route. 3. Will continue to monitor weight changes, labs and overall nutrition status 4. RD will continue to follow up weekly Nutrition Assessment: pt remains in ICU, intubated/sedated (intubated since 06/04), pt had SBT yesterday and did well, MD noted possible extubation today pending repeat SBT, ID following due to COVID- plans to continue steroids; s/p remdesivir and toci x1 (06/04), diflucan stopped yesterday, pt remainsfollowed by Palliative Care as well, pt is receiving and tolerating Pviot 1.5 @ 35mls/hr without issue, pt weight during admit is fairly stable/slightly up- noted generalized and BLE +2 edema, will monitor Malnutrition Assessment: Malnutrition Status: At risk for malnutrition (Comment) (pt weight is fairly stable during admit, pt has been receiving appropriate EN, will monitor) Nutrition Related Findings: [place] = 13, right buttock stage 2, generalized and BLE +2 edema, oriented to person and place, passed SBT yesterday, remains intubated today, no propofol, BM 06/06, OG in place, -I/O Wounds: Pressure Injury, Stage II Current Nutrition Therapies: Diet NPO ADULT TUBE FEEDING; Orogastric; Immune Enhancing; Continuous; 10; Yes; 10; Q 4 hours; 35; 250; Q 4 hours Current Tube Feeding (TF) Orders: Feeding Route: Orogastric Formula: Immune Enhancing Schedule: Continuous Additives/Modulars: (N/A) Water Flushes: per MD Recommendations Current TF & Flush Orders Provides: Pt is receiving and tolerating Pivot 1.5 (Immune Enhancing Formula) @ goal rate of 35mls/hr to provide 1260kcals, 78gm protein, 637mL free fluid (22kcals/kg, 1.4gm/kg IBW) which is appropriate Goal TF & Flush Orders Provides: same as above Anthropometric Measures: Height: 5 [facility] Work Phone: 1(166) 391-117108-04-2021 Hospital Discharge instructions* Discharge Instr - Diet* Megan Brock MD - 07/03/2021 2:25 PM EDT Good nutrition is important when healing from an illness, injury, or surgery. Follow any nutrition recommendations given to you during your hospital stay. If you were given an oral nutrition supplement while in the hospital, continue to take this supplement at home. You can take it with meals, in-between meals, and/or before bedtime. These supplements can be purchased at most local grocery stores, pharmacies, and chain super-stores. If you have any questions about your diet or nutrition, call the hospital and ask for the dietitian. * Discharge Instr - ALEXA* Nargis Bhat RN - 07/01/2021 3:09 PM EDT Continuity of Care Form Patient Name: Jesusita England : 1970 Admit date: 06/03/2021 Discharge date: 07/03/2021 Code Status Order: Full Code Advance Directives: Advance Care Flowsheet Documentation Date/Time Healthcare Directive Type of Healthcare Directive Copy in Chart Healthcare Agent Appointed Healthcare Agent's Name Healthcare Agent's Phone Number 06/03/21 [id number] No, patient does not have an advance directive for healthcare treatment Admitting Physician: Ruth Soni DO PCP: No primary care provider on file. Discharging Nurse: audrey Discharging Hospital Unit/Room#: [id number] Discharging Unit Emergency Contact: Extended Emergency Contact Information Primary Emergency Contact: Maggie Sanders Relation: Brother/Sister Secondary Emergency Contact: Adina England Relation: Spouse Past Surgical History: Past Surgical History: Procedure Laterality Date CHOLECYSTECTOMY HEEL SPUR SURGERY HIP SURGERY Immunization History: There is no immunization history on file for this patient. Active Problems: Patient Active Problem List Diagnosis Code Pneumonia due to COVID-19 virus U07.1, J12.82 Palliative care encounter Z51.5 COVID-19 U07.1 Anxiety F41.9 Insomnia G47.00 Gastroesophageal reflux disease without esophagitis K21.9 Angular cheilitis K13.0 Pressure injury of right buttock, stage 3 ([facility]) L89.313 MIRIAM (acute kidney injury) ([facility]) N17.9 Hyponatremia E87.1 Poor intravenous access Z78.9 Obstructive sleep apnea syndrome G47.33 Neoplasm of uncertain behavior of skin D48.5 Morbid obesity ([facility]) E66.01 Iron deficiency anemia due to chronic blood loss D50.0 Body mass index (BMI) of 70 or greater in adult ([facility]) Z68.45 Ventilator associated pneumonia ([facility]) J95.851 Evin albicans infection B37.9 MRSA pneumonia ([facility]) J15.212 MSSA (methicillin susceptible Staphylococcus aureus) pneumonia ([facility]) J15.211 Isolation/Infection: Isolation No Isolation Patient Infection Status Infection Onset Added Last Indicated Last Indicated By Review Planned Expiration Resolved Resolved By MRSA 06/17/21 06/17/21 Fanta Escalera RN 06/15/21 - resp - Maintain standard precautions with strict adherence to hand hygiene and disinfection of equipment. Contact precautions if excretions or secretions cannot be contained. Resolved Other 06/04/21 06/04/21 Theresa Argueta RN 06/05/21 Fanta Escalera RN 06/04/2021 Pneumonia PCR panel ordered. Maintain Droplet Precautions until this test is negative or test is cancelled. COVID-19 06/02/21 06/04/21 06/04/21 Fanta Escalera RN 06/18/21 Fanta Escalera RN Added from external infection. - 05/27/21 [facility] ([facility]) per ODRS/pw May discontinue isolation per discussion with ID/pw Nurse Assessment: Last Vital Signs: BP 127/82 Pulse 85 Temp 96.2 F (35.7 C) (Temporal) Resp 18 Ht 5' 5 (1.651 m) Wt (!) 419 lb 8 oz (190.3 kg) SpO2 99% BMI 69.81 kg/m Last documented pain score (0-10 scale): Pain Level: 0 Last Weight: Wt Readings from Last 1 Encounters: 06/25/21 (!) 419 lb 8 oz (190.3 kg) Mental Status: oriented and alert IV Access: - None Nursing Mobility/ADLs: Walking Dependent Transfer Dependent Bathing Assisted Dressing Assisted Toileting Dependent Feeding Independent Granite Polisher Machine Independent Med Delivery whole Wound Care Documentation and Therapy: Wound 06/09/21 Buttocks Right Stage II (Active) Wound Etiology Pressure Stage 3 06/27/21 0800 Dressing Status New dressing applied 06/27/21 0800 Wound Cleansed Irrigated with saline 06/28/21 0845 Dressing/Treatment Pharmaceutical agent (see MAR) 06/28/21 0845 Wound Length (cm) 2 cm 06/22/21 1000 Wound Width (cm) 1.5 cm 06/22/21 1000 Wound Depth (cm) 0 cm 06/22/21 1000 Wound Surface Area (cm^2) 3 cm^2 06/22/21 1000 Change in Wound Size % (l*w) -200 06/22/21 1000 Wound Volume (cm^3) 0 cm^3 06/22/21 1000 Wound Healing % 100 06/22/21 1000 Wound Assessment Pauline/red 06/28/21 0845 Drainage Amount None 06/28/21 0845 Drainage Description Serosanguinous 06/27/21 0800 Odor None 06/28/21 0845 Elo-wound Assessment Blanchable erythema 06/28/21 0845 Margins Attached edges 06/27/21 0800 Number of days: 22 Wound 06/20/21 Back Lower;Medial Unstageable (Active) Wound Etiology Pressure Unstageable 06/27/21 0810 Dressing Status Clean;Dry;Intact 06/27/21 0810 Wound Cleansed Wound cleanser 06/28/21 0845 Dressing/Treatment ABD;Pharmaceutical agent (see MAR) 06/28/21 0845 Dressing Change Due 06/29/21 06/28/21 0845 Wound Length (cm) 9 cm 06/22/21 1000 Wound Width (cm) 2 cm 06/22/21 1000 Wound Depth (cm) 0.1 cm 06/20/21 0805 Wound Surface Area (cm^2) 18 cm^2 06/22/21 1000 Change in Wound Size % (l*w) 0 06/22/21 1000 Wound Volume (cm^3) 1.8 cm^3 06/20/21 0805 Wound Assessment Slough 06/27/21 0800 Drainage Amount None 06/28/21 0845 Drainage Description Sanguinous 06/27/21 0800 Odor None 06/28/21 0845 Number of days: 11 Wound 06/20/21 Sacrum Stage II (Active) Wound Etiology Pressure Stage 2 06/25/21 1130 Dressing Status Other (Comment) 06/28/21 0845 Wound Cleansed Other (Comment) 06/24/21 1103 Dressing/Treatment Pharmaceutical agent (see MAR) 06/28/21 0845 Wound Length (cm) 3.5 cm 06/20/210 Wound Width (cm) 1.5 cm 06/20/210 Wound Surface Area (cm^2) 5.25 cm^2 06/20/210 Change in Wound Size % (l*w) 0 06/20/21 2120 Wound Assessment Pauline/red 06/25/21 1130 Drainage Amount None 06/28/21 0845 Drainage Description Serosanguinous 06/25/21 1130 Odor None 06/28/21 0845 Number of days: 11 Elimination: Continence: Bowel: No Bladder: No Urinary Catheter: None Colostomy/Ileostomy/Ileal Conduit: No Date of Last BM: 07/03/2021 Intake/Output Summary (Last 24 hours) at 07/01/2021 1507 Last data filed at 07/01/2021 0453 Gross per 24 hour Intake 900 ml Output 700 ml Net 200 ml I/O last 3 completed shifts: In: 900 [P.O.:900] Out: 700 [Urine:700] Safety Concerns: None Impairments/Disabilities: bariatric patient Nutrition Therapy: Current Nutrition Therapy: - Oral Diet: General Routes of Feeding: Oral Liquids: No Restrictions Daily Fluid Restriction: yes - amount 1800 Last Modified Barium Swallow with Video (Video Swallowing Test): not done Treatments at the Time of Hospital Discharge: Respiratory Treatments: yes Oxygen Therapy: is on oxygen at 2L L/min per nasal cannula. Ventilator: - BiPAP IPAP: 14 cmH20, CPAP/EPAP: 6 cmH2O with 3 L/min oxygen Rehab Therapies: Physical Therapy Weight Bearing Status/Restrictions: No weight bearing restirctions Other Medical Equipment (for information only, NOT a DME order): hospital bed Other Treatments: na Patient's personal belongings (please select all that are sent with patient): None RN SIGNATURE: CASE MANAGEMENT/SOCIAL WORK SECTION Inpatient Status Date: 06/03/2021 Readmission Risk Assessment Score: Readmission Risk Risk of Unplanned Readmission: 32 Discharging to Facility/ Agency Name: [facility] Address:[address] [place], [place] [id number] Dialysis Facility (if applicable) Name: Address: Dialysis Schedule: Phone: Fax: Transportation Technician/Carpet Layer signature: ICIAN SECTION Prognosis: Fair Condition at Discharge: Stable Rehab Potential (if transferring to Rehab): Good Recommended Labs or Other Treatments After Discharge: cont to use BiPAP with 3LPM overnight (14/6 settings). Patient also has wound care orders (all rec/current meds placed). Physician Certification: I certify the above information and transfer of Jesusita England is necessaryfor the continuing treatment of the diagnosis listed and that she requires [facility] Facilityfor greater 30 days. Update Admission H&P: No change in H&P PHYSICIAN SIGNATURE: [facility] Work Phone: [phone]) 189-139807-05-2021 Miscellaneous Notes* Plan of Care - Nikia Vines RN - 06/03/2021 12:37 PM EDT Problem: Patient Care Overview Goal: Plan of Care Review Outcome: Adequate for Discharge Goal: Individualization & Mutuality Outcome: Adequate for Discharge Goal: Discharge Needs Assessment Outcome: Adequate for Discharge Goal: Interdisciplinary Rounds/Family Conf Outcome: Adequate for Discharge Problem: Skin Integrity Impairment, Risk/Actual (Adult) Goal: Identify Related Risk Factors and Signs and Symptoms Description: Related risk factors and signs and symptoms are identified upon initiation of Human Response Clinical Practice Guideline (CPG) Outcome: Adequate for Discharge Goal: Skin Integrity/Wound Healing Description: Patient will demonstrate the desired outcomes by discharge/transition of care. Outcome: Adequate for Discharge Problem: Pneumonia (Adult) Goal: Signs and Symptoms of Listed Potential Problems Will be Absent, Minimized or Managed (Pneumonia) Description: Signs and symptoms of listed potential problems will be absent, minimized or managed by discharge/transition of care (reference Pneumonia (Adult) CPG). Outcome: Adequate for Discharge * Nursing Notes - Nikia Vines RN - 06/03/2021 12:05 PM EDT Patient discharged to [facility] via [facility]. Report given to Ja SUBRAMANIAN at [facility]. Patient belongings sent with her. Patient sister given an update with room number. * Therapy Note - Yesi Jamison PT - 06/03/2021 8:47 AM EDT PT consult received and chart reviewed. Pt admitted for covid-19. Pt currently is on bipap and per nursing not appropriate for PT today. Will continue to follow and evaluate as able. * Nursing Notes - Scottie Cloud RN - 06/03/2021 4:00 AM EDT 0400 - Reassessment completed. Prior assessment unchanged. * Nursing Notes - Scottie Cloud RN - 06/03/2021 12:00 AM EDT 0000 - Reassessment completed. Prior assessment unchanged. * Plan of Care - Scottie Cloud RN - 06/02/2021 8:40 PM EDT Problem: Patient Care Overview Goal: Plan of Care Review Outcome: Ongoing Goal: Individualization & Mutuality Outcome: Ongoing Goal: Discharge Needs Assessment Outcome: Ongoing Goal: Interdisciplinary Rounds/Family Conf Outcome: Ongoing Problem: Skin Integrity Impairment, Risk/Actual (Adult) Goal: Identify Related Risk Factors and Signs and Symptoms Description: Related risk factors and signs and symptoms are identified upon initiation of Human Response Clinical Practice Guideline (CPG) Outcome: Ongoing Goal: Skin Integrity/Wound Healing Description: Patient will demonstrate the desired outcomes by discharge/transition of care. Outcome: Ongoing Problem: Pneumonia (Adult) Goal: Signs and Symptoms of Listed Potential Problems Will be Absent, Minimized or Managed (Pneumonia) Description: Signs and symptoms of listed potential problems will be absent, minimized or managed by discharge/transition of care (reference Pneumonia (Adult) CPG). Outcome: Ongoing * Nursing Notes - Scottie Cloud RN - 06/02/2021 8:00 PM EDT 2000 - Assessment completed. Patient on BIPAP settings 13/07. Patient denies shortness of breath. Mostly tachypneic. In no apparent distress. Alert and oriented X 3. Follows commands and Jessica. Sinus rhythm per ekg monitor. Will continue to monitor. Please see flow sheets for details. documented in this [facility]07-05-2021 Hospital Discharge instructions* Discharge Instr - Activity* Flash De La Rosa PA-C - 06/03/2021 8:48 AM EDT aat * Discharge Instr - Diet* Flash De La Rosa PA-C - 06/03/2021 8:48 AM EDT aat documented in this [facility]07-05-2021 Hospital course Narrative* Flash De La Rosa PA-C - 06/03/2021 8:43 AM EDT Discharge Summary Summary Time: 06/03/21 8:49 AM Name: Jesusita England Age: 51 y.o. Birthday: 1970 Admit Date: 06/02/2021 10:38 AM Discharge Date: 06/03/2021 Brief Summary of Hospital Course: Patient is a 51 y.o. female presents to [facility] for evaluation of SOB. 51-year-old female with worsening shortness of breath over the pastone week. She denies any associated chest pains. Her currently has COVID pnemonia. She has been symptomatic for one week. Worsening over the past few days. In the ER she is positive for beckman virus. CT chest is consistent with multifocal pneumonia. Whiteblood cell count low at 2.3. CRP elevated at 143. She does meet sepsis criteria. Blood cultures were obtained she was started on Levaquin and IV antiviral therapy. She was hypoxic requiring oxygen, currently on BiPAP. ABG shows a PF ratio of 90. The patient was admitted to the ICU in critical condition. She is maintaining her saturations well on BiPAP. A central line was placed. She will be continued On antibiotics and antiviral therapy. Cultures are pending. Continue vitamin replacement and supportive therapy. During admission the patient was continued on BiPAP and antiviral therapy. Arrangements were made for the patient to be transferred to [place] in the emergency department. Transportation has now been arranged. Today the patient will be transferred per her request to [facility]. Consultants: N/A Discharge Diagnosis: Active Problems: GERD without esophagitis Obstructive sleep apnea syndrome Pneumonia due to 2019 novel coronavirus Acute respiratory failure with hypoxia Sepsis associated with acute hypoxic respiratory failure without septic shock secondary to Pneumonia Super-super obese Pancytopenia Iron deficiency anemia due to chronic blood loss Leukopenia Thrombocytopenia Discharge Vital Signs: Blood pressure 148/87, pulse 64, temperature 97.1 F (36.2 C), temperature source Temporal, resp. rate (!) 30, height 1.651 m (5' 5), weight (!) 199.6 kg (440 lb), SpO2 91 %. O2 Sat (%): 91 % (06/03 745) O2 Device: BIPAP (06/03 745) IPAP (cm H2O): 14 (06/03 745) EPAP (cm H2O): 8 (06/03 745) CPAP/BiPAP/NIMV Review of Contraindications: no contraindications identified (06/03 410) Discharge Labs: Lab Results Component Value Date WBC 2.3 (L) 06/02/2021 HGB 11.5 (L) 06/03/2021 HCT 35.8 (L) 06/03/2021 PLATELET 125 (L) 06/02/2021 MCV 69.9 (L) 06/02/2021 @LASTMAGNESIUM(1D,2)@ Lab Results Component Value Date INR 1.01 06/03/2021 PT 13.5 06/03/2021 Lab Results Component Value Date CREATSERUM 0.71 06/03/2021 BUN 13 06/03/2021 SODIUM 138 06/03/2021 POTASSIUM 4.3 06/03/2021 CHLORIDE 103 06/03/2021 CO2 24 06/03/2021 Lab Results Component Value Date SPGRVTYUR 1.020 06/02/2021 GLUCOSEURINE NEGATIVE 06/02/2021 BILIRUBINURI NEGATIVE 06/02/2021 KETONESURINE NEGATIVE 06/02/2021 NITRITESURIN NEGATIVE 06/02/2021 LEUKOCESTUR NEGATIVE 06/02/2021 WBCURINE NEGATIVE 06/02/2021 RBCURINE NEGATIVE 06/02/2021 BACTERIAURIN NEGATIVE 06/02/2021 PHYSICAL EXAM: General: Patient resting comfortably. Awake. No acute distress. Cardiovascular: Regular rate and rhythm, without murmurs, rubs, or gallops. Respiratory: Bilateral Upper and Lower Lobes without wheezes, rales, or rhonchi Abdomen: Soft, rounded, non-tender. Bowel sounds present x4 quadrants. No rebound. No organomegaly or masses noted upon deep palpation. Extremities: No edema, clubbing or cyanosis, pulses palpable 2+ distally. Skin: Warm, Dry, Intact. Discharge Medications: Medication List for when you go home CONTINUE taking these medications albuterol 108 (90 Base) MCG/ACT AERS inhaler INHALE 2 PUFFS BY MOUTH EVERY 4 TO 6 HOURS NEEDED DIRECTED FOR WHEEZING AND FOR SHORTNESS OF BREATH Commonly known as: VENTOLIN HFA benzonatate 200 MG CAPS TAKE 1 CAPSULE BY MOUTH EVERY 8 HOURS NEEDED FOR COUGH Commonly known as: TESSALON Cholestyramine 4 GM/DOSE POWD Take 4 g by mouth daily. 1 scoop po qam Commonly known as: Questran For diagnoses: Functional diarrhea dexAMETHasone 6 MG TABS TAKE 1 TABLET BY MOUTH ONCE DAILY FOR 6 DAYS Commonly known as: DECADRON furOSEmide 20 MG TABS Take 20 mg by mouth daily. Commonly known as: LASIX gabapentin 300 MG CAPS Commonly known as: NEURONTIN PriLOSEC [address] take 10 mg by mouth daily. Generic drug: omeprazole Discharge Activity: Resume pre-hospital activities as tolerated. Discharge Diet: Resume pre-hospital diet as tolerated. Discharge Follow-up: Transfer to [place] Discharge Disposition: Patient will be discharged in stable condition. Discharge Time: Including assessment, planning, and medication reconciliation was greater than 35 min. Flash De La Rosa PA-C completing Discharge Summary for Dr. Naranjo Please note portions of this note utilized Brainscapeation software, please excuse any typographical or grammatical errors Associated attestation - Salomon Ballesteros MD - 06/03/2021 3:55 PM EDT I have personally seen and examined Jesusita England. I have personally reviewed all available clinical data related to this encounter including, but not limited to, radiolgraphs and reports, laboratorydata, and procedure reports. I have been fully involved in formulation of the assessment and plan. DOS: Patient requested transfer to [facility] in [place]. She is SOB. Some cough. ROS: Ten systems reviewed, unless limited by patient' or care providers' inability or unavailability. Reported above or following. Assessment and additional plans: Hypoxic respiratory failure Severe Covid 19 with bilateral PNA/ARDS Obesity and MIGUEL Plan: BiPAP; O2; steroids; DVT prophylaxis; transfer to tertiary care hospital. Contact me if you need any clarification. Salomon Ballesteros MD [facility] History and physical note* Flash De La Rosa PA-C - 06/02/2021 5:02 PM EDT History and Physical Examination 06/02/21 5:03 PM Chief Complaint: Shortness of Breath History of Present Illness: Patient is a 51 y.o. female presents to [facility] for evaluation of SOB. 51-year-old female with worsening shortness of breath over the pastone week. She denies any associated chest pains. Her currently has COVID pnemonia. She has been symptomatic for one week. Worsening over the past few days. In the ER she is positive for beckman virus. CT chest is consistent with multifocal pneumonia. Whiteblood cell count low at 2.3. CRP elevated at 143. She does meet sepsis criteria. Blood cultures were obtained she was started on Levaquin and IV antiviral therapy. She was hypoxic requiring oxygen, currently on BiPAP. ABG shows a PF ratio of 90. The patient was admitted to the ICU in critical condition. She is maintaining her saturations well on BiPAP. A central line was placed. She will be continued On antibiotics and antiviral therapy. Cultures are pending. Continue vitamin replacement and supportive therapy. Objective: Patient Active Problem List Diagnosis Date Noted COVID-19 06/02/2021 Pneumonia due to 2019 novel coronavirus 06/02/2021 Acute respiratory failure with hypoxia 06/02/2021 Sepsis associated with acute hypoxic respiratory failure without septic shock secondary to Pneumonia 06/02/2021 Super-super obese 06/02/2021 Pancytopenia 06/02/2021 Iron deficiency anemia due to chronic blood loss 06/02/2021 Leukopenia 06/02/2021 Thrombocytopenia 06/02/2021 Allergic rhinitis, unspecified Anemia, unspecified Body mass index (BMI) of 70 or greater in adult Diarrhea, unspecified Elevated blood pressure reading without diagnosis of hypertension GERD without esophagitis Irregular menstruation Morbid obesity Neoplasm of uncertain behavior of skin Shortness of breath Obstructive sleep apnea syndrome Wheezing Past Medical History: Diagnosis Date Allergic rhinitis, unspecified Anemia, unspecified Body mass index (BMI) of 70 or greater in adult Diarrhea, unspecified Elevated blood pressure reading without diagnosis of hypertension GERD without esophagitis H/O screening mammography 07/27/2017 Abnormal Right breast Irregular menstruation Morbid obesity Neoplasm of uncertain behavior of skin Personal history of other medical treatment Cyst Aspiration- 03/15/2015 Shortness of breath Sleep apnea Wheezing Past Surgical History: Procedure Laterality Date CHOLECYSTECTOMY 2003 FOOT SURGERY 2002 Spurs removed off of heels HIP SURGERY 1979 Social History Tobacco Use Smoking status: Never Smoker Smokeless tobacco: Never Used Substance Use Topics Alcohol use: Yes Comment: rarely Family History Problem Relation Age of Onset Alzheimer's Mother No known problems Father Medications Prior to Admission Medication Sig Dispense Refill Last Dose albuterol 108 (90 Base) MCG/ACT Aero Soln inhaler INHALE 2 PUFFS BY MOUTH EVERY 4 TO 6 HOURS NEEDED DIRECTED FOR WHEEZING AND FOR SHORTNESS OF BREATH 06/01/2021 benzonatate 200 MG capsule TAKE 1 CAPSULE BY MOUTH EVERY 8 HOURS NEEDED FOR COUGH 06/01/2021 Cholestyramine (QUESTRAN) 4 GM/DOSE Powder Take 4 g by mouth daily. 1 scoop po qam 1 Can 5 06/02/2021 dexAMETHasone 6 MG tablet TAKE 1 TABLET BY MOUTH ONCE DAILY FOR 6 DAYS 06/01/2021 furOSEmide 20 MG tablet Take 20 mg by mouth daily. 06/01/2021 gabapentin 300 MG capsule 06/01/2021 omeprazole (PRILOSEC) [address] take 10 mg by mouth daily. 06/01/2021 No Known Allergies Review of Systems: Shortness of breath , see HPI Ten systems reviewed and found to be negative unless otherwise stated in the history and present illness. PHYSICAL EXAM: Patient Vitals for the past 8 hrs: BP Temp Temp src Pulse Resp SpO2 Height Weight 06/02/21 1600 119/66 63 (!) 26 96 % 06/02/21 1542 116/59 100.4 F (38 C) Oral 64 (!) 28 96 % 06/02/21 1541 1.651 m (5' 5) (!) 199.6 kg (440 lb) 06/02/21 1358 126/64 72 (!) 26 94 % 06/02/21 1238 108/54 100.4 F (38 C) Oral 75 (!) 28 90 % 06/02/21 1100 80 92 % 06/02/21 1057 (!) 86 % 06/02/21 1048 (!) 199.8 kg (440 lb 6.4 oz) 06/02/21 1047 156/67 102.3 F (39.1 C) Oral 79 (!) 26 (!) 86 % General: Patient resting comfortably. Awake. No acute distress. HEENT: Normalcephalic, atraumatic. Pupils equal, round, reactive, to light and accomodation B/L. Bilateral nares patent without obvious drainage. Oral mucosa moist, pink, intact without ulcers or lesions. Neck: No JVD, no thyromegaly, no anterior or posterior lymphadenopathy. Cardiovascular: Regular rate and rhythm, without murmurs, rubs, or gallops. Respiratory: Coarse throughout Abdomen: Soft, rounded, non-tender. Bowel sounds present x4 quadrants. No rebound. No organomegaly or masses noted upon deep palpation. Extremities: No edema, clubbing or cyanosis, pulses palpable 2+ distally. Skin: Warm, Dry, Intact. No obvious rashes or lesions noted. Neuro: Patient awake, alert, orientedx3. Cranial nerves 2-12 grossly intact upon seated examination. No focal defiects noted. M/S: No joint errythema or pain noted; no clubbing Diagnostics: Lab Results Component Value Date WBC 2.3 (L) 06/02/2021 HGB 11.1 (L) 06/02/2021 HCT 34.4 (L) 06/02/2021 PLATELET 125 (L) 06/02/2021 MCV 69.9 (L) 06/02/2021 @LASTMAGNESIUM(1D,2)@ No results found for: INR, PT Lab Results Component Value Date CREATSERUM 0.95 06/02/2021 BUN 13 06/02/2021 SODIUM 133 (L) 06/02/2021 POTASSIUM 4.2 06/02/2021 CHLORIDE 98 06/02/2021 CO2 25 06/02/2021 Lab Results Component Value Date SPGRVTYUR 1.020 06/02/2021 GLUCOSEURINE NEGATIVE 06/02/2021 BILIRUBINURI NEGATIVE 06/02/2021 KETONESURINE NEGATIVE 06/02/2021 NITRITESURIN NEGATIVE 06/02/2021 LEUKOCESTUR NEGATIVE 06/02/2021 WBCURINE NEGATIVE 06/02/2021 RBCURINE NEGATIVE 06/02/2021 BACTERIAURIN NEGATIVE 06/02/2021 Impression and Plan: Principle Problem: Pneumonia due to 2019 novel coronavirus - CT chest shows multifocal pneumonia, continue with IV antiviral therapy and steroids. Currently on BiPAP. Active Problems: GERD without esophagitis - GI prophylaxis with Protonix Obstructive sleep apnea syndrome - Continue BiPAP Acute respiratory failure with hypoxia - PF ratio 90, currently on BiPAP at 15 L, continue to monitor closely Sepsis associated with acute hypoxic respiratory failure without septic shock secondary to Pneumonia - CT chest shows multifocal pneumonia, white blood cell count 2.3, CRP 143, lactate pending. Currently on BiPAP 15 L, beckman virus positive. Blood cultures are pending. Continue IV Levaquin and antiviral therapy. Super-super obese Pancytopenia - Continue to monitor closely, platelet count 125, no active bleeding Iron deficiency anemia due to chronic blood loss - Hemoglobin stable with no active bleeding, continue vitamin replacement and ferrous sulfate replacement Leukopenia - White blood cell count 2.3, continue IV antiviral therapy and antibiotics and continueto monitor Thrombocytopenia - Platelet count 125, continue to monitor PT OT SS for dc planning GI/DVT prophylaxis with protonix and Lovenox This plan of care was initiated in collaboration with the attending physician Dr. Naranjo Please note Portions of this note utilized Brainscapeation software, please excuse any typographical or grammatical errors [facility] Associated attestation - Guilherme Naranjo DO - 06/02/2021 6:54 PM EDT Patient seen and examined independently. Meds, labs, and radiographs reviewed. Lungs coarse and heart tones regular on exam. +Tachypnea and Tmax 102.3F CTA reviewed- IMPRESSION: 1. Poor contrast opacification of the pulmonary arteries is essentially nondiagnostic for pulmonary embolism. Enlargement of the main pulmonary artery suggests pulmonary arterial hypertension. 2. Cardiomegaly. 3. Extensive scattered airspace opacities throughout both lungs compatible with multifocal viral pneumonia. +B/L COVID PNA. WBC 2.3 CRP 143.1. ABG reviewed- Ref Range & Units 06/02/21 1535 SAMPLE SITE LEFT RADIAL ALLENS TEST POSITIVE Patient Diagnosis COVID PO2 Arterial 15L pH Arterial 7.350 - 7.450 7.450 pCO2 Arterial 35 - 45 mmHg 35.8 pO2 Arterial 80 - 100 mmHg 79.0Low HCO3 22 - 26 mEq/L 24.3 BASE EXCESS 0 - 2 mEq/L 0.9 CTCO2(B)C Vol% 22.1 CTHB g/dl 10.8 % O2 HGB % 94.8 O2 SATURATION 95 - 100 % 96.5 CARBOXYHEMOGLOBIN % 1.8 MetHB Arterial % 0.0 NOTE BIPAP 14/8 RATE 14 +Severe ARDS. Bipap 14/8. Recommended transfer from ER for ARDS care but was told can not obtain transfer based upon patient body habitus. Remdesivir and Solumedrol 125mg q 6hrs. Empiric Levaquin. Await Cx data. Guarded prognosis. Continue attempts to obtain transport for ARDS care. Sepsis w/ associated Acute Hypoxic Resp Failure 2/2 Covid PNA/ARDS. I agree with assessments and plan of care. documented in this [facility]07-04-2021 Procedure note* Al Stack APRN-CNP - 06/02/2021 4:50 PM EDT Associated Order(s): PROCEDURE - CENTRAL LINE WITH OR WITHOUT PAC INDICATION: Vascular Access / Critically Ill / Limited access PROCEDURE TREATING INSPECTOR: Nathen Stack APRN-DIRECTOR REPORT ATTENDING PHYSICIAN: In Attendance (N) CONSENT: Consent was obtained from patient prior to the procedure. Indications, risks, and benefits were explained at length. The procedure was performed emergently and the permission was implied because of the emergent nature. PROCEDURE SUMMARY: A time out was performed. My hands were washed immediately prior to the procedure. I wore a surgical cap, mask with protective eyewear, full gown and sterile gloves throughout the procedure. The patient was placed in Trendelenburg position. Right neck region was prepped using chlorhexidine scrub and draped in sterile fashion using a full drape and sterile probe cover employed. The medial and lateral heads of the sternocleidomastoid muscle were identified as was the carotid pulse. The Internal Jugular vein was identified using the ultrasound. Anesthesia was achieved over the vein using 1% lidocaine. Using real-time out of plane guidance, the introducer needle was inserted into the Internal Jugular vein under direct ultrasound visualization. Venous blood was withdrawn. The syringe was removed and a guidewire was advanced into the introducer needle. The guidewire was visualized in the Internal Jugular Vein by ultrasound. A small incision was made at the skin surface with a scalpel and the introducer needle was exchanged for a dilator over the guidewire. After appropriate dilation was obtained, the dilator was exchanged over the wire for a triple lumen central venous catheter. The wire was removed and the catheter was sutured in place at 15 cm. A sterile sorbaview shield was placed over the catheter at the insertion site. The patient tolerated the procedure without any hemodynamiccompromise. At time of procedure completion, all ports aspirated and flushed properly. Post-procedure chest x-ray is pending at this time. Estimated blood loss is less than 10ml. documented in this [facility]07-04-2021 Emergency department Note* Nora Dominguez RN - 06/02/2021 3:47 PM EDT Sister Maggie Sanders called at [phone] and updated that the pt has been transferred to the ICU room 7897. * Mary Anne Soto PCA - 06/02/2021 3:00 PM EDT Patient assigned to room #[id number]. * Mary Anne Soto PCA - 06/02/2021 2:04 PM EDT Called [facility] at this time, spoke with Maxim to advise that patient will be admitted toour facility for the time being because we are unable to arrange transport for her. * Mary Anne Soto PCA - 06/02/2021 1:[address] Naranjo called back at this time. * Mayr Anne Soto PCA - 06/02/2021 1:44 PM EDT Kirsten with the [facility] transfer center called back at this time, patient assigned to room #T3, ICU, room 303. * Mary Anne Soto PCA - 06/02/2021 1:38 PM EDT [facility] called back at this time, Dr. Soni accepted for patient to go to ICU, waiting on a room assignment. * Mary Anne Soto PIPELINE DISPATCH OPERATOR - 06/02/2021 1:13 PM EDT Called [facility] at this time, advised that patient is getting placed on Bi pap, they will call back with an ICU room assignment. * Kellen Yang RN - 06/02/2021 1:02 PM EDT C/O SOB. Dr. Krystle beal. Saturation 84%. RT called. * Becky SotoDARIN dawn - 06/02/2021 12:58 PM EDT Called [facility] at this time to see if they have a transport crew available, they do notemploy a transport company. * CharlesMary Anne rueda PCA - 06/02/2021 12:54 PM EDT [facility] do not have a bariatric cart, ALS crew, or is out of the service area. * Mary Anne Soto PCA - 06/02/2021 12:38 PM EDT Disc requested from radiology at this time. * Mary Anne Soto PCA - 06/02/2021 12:20 PM EDT [facility] called back at this time. * Nawaf Dalton MD - 06/02/2021 10:49 AM EDT Emergency Department Report [facility] EMERGENCY DEPARTMENT Service Date:.06/02/21 PCP: Alondra Crews Chief Complaint: Chief Complaint Patient presents with COVID-19 per EMS, pt c/o covid symptoms, cough and SOB. pt spouse (+) COVID HPI Jesusita England is a 51 y.o. female presents to the ED with chief complaint of cough, fever, shortness of breath. Patient has been exposed to a known Covid positive patient. She has not been immunized.She states she is been feeling sick since 27 May. She states the cough is gotten worse. She statesshe is now short of breath. She has been running a fever. She has been taking some lrne-dfj-pysolwklxfyw and cold medications. She states she has not been on any antibiotics for this. She states herphysician did call her and some steroids. She denies any rash. She denies headache. She does cleaning of body aches. She denies vomiting or diarrhea. She denies any underlying lung history such as COPD or asthma. She does not smoke Review of Systems: Review of Systems Review of Systems Constitutional: Positive for chills fever body aches and malaise Skin: Negative for rash, bruising HENT: Positive for congestion. Negative for ear Eyes: No drainage, redness Cardiovascular: Negative for chest pain, palpitations Gastrointestinal: Negative for nausea, vomiting, diarrhea Respiratory: Positive for cough, shortness of breath, wheezing. Negative for hemoptysis Genitourinary: Negative for frequency, dysuria Musculoskeletal: Negative for fall, trauma Neurological: Negative for syncope, headache Past Medical History: Past Medical History: Diagnosis Date Allergic rhinitis, unspecified Anemia, unspecified Body mass index (BMI) of 70 or greater in adult Diarrhea, unspecified Elevated blood pressure reading without diagnosis of hypertension GERD without esophagitis H/O screening mammography 07/27/2017 Abnormal Right breast Irregular menstruation Morbid obesity Neoplasm of uncertain behavior of skin Personal history of other medical treatment Cyst Aspiration- 03/15/2015 Shortness of breath Sleep apnea Wheezing Past Surgical History: Past Surgical History: Procedure Laterality Date CHOLECYSTECTOMY 2002 FOOT SURGERY 2002 Spurs removed off of heels HIP SURGERY 1979 Allergies: No Known Allergies Medications: Patient's Medications New Prescriptions No medications on file Previous Medications ALBUTEROL 108 (90 BASE) MCG/ACT AERO SOLN INHALER INHALE 2 PUFFS BY MOUTH EVERY 4 TO 6 HOURS NEEDED DIRECTED FOR WHEEZING AND FOR SHORTNESS OF BREATH BENZONATATE 200 MG CAPSULE TAKE 1 CAPSULE BY MOUTH EVERY 8 HOURS NEEDED FOR COUGH CHOLESTYRAMINE (QUESTRAN) 4 GM/DOSE POWDER Take 4 g by mouth daily. 1 scoop po qam DEXAMETHASONE 6 MG TABLET TAKE 1 TABLET BY MOUTH ONCE DAILY FOR 6 DAYS FUROSEMIDE 20 MG TABLET Take 20 mg by mouth daily. GABAPENTIN 300 MG CAPSULE OMEPRAZOLE (PRILOSEC) [address] take 10 mg by mouth daily. Modified Medications No medications on file Discontinued Medications No medications on file Family History: Family History Problem Relation Age of Onset Alzheimer's Mother No known problems Father Social History: Social History Socioeconomic History Marital status: Spouse name: Not on file Number of children: Not on file Years of education: Not on file Highest education level: Not on file Occupational History Not on file Tobacco Use Smoking status: Never Smoker Smokeless tobacco: Never Used Substance and Sexual Activity Alcohol use: Yes Comment: rarely Drug use: Not on file Sexual activity: Not on file Other Topics Concern Not on file Social History Narrative Not on file Social Determinants of Health Financial Resource Strain: Difficulty of Paying Living Expenses: Food Insecurity: Worried About Running Out of Food in the Last Year: Ran Out of Food in the Last Year: Transportation Needs: Lack of Transportation (Medical): Lack of Transportation (Non-Medical): Physical Activity: Days of Exercise per Week: Minutes of Exercise per Session: Stress: Feeling of Stress : Social Connections: Frequency of Communication with Friends and Family: Frequency of Social Gatherings with Friends and Family: Attends [employer] Services: Active Member of Clubs or Organizations: Attends Club or Organization Meetings: Marital Status: Intimate Partner Violence: Fear of Current or Ex-Partner: Emotionally Abused: Physically Abused: Sexually Abused: Physical Exam: Physical Exam General: Well-nourished well-hydrated nontoxic HENT: Head is atraumatic. Scalp is nontender. Face is symmetric. Mucous membranes are well-hydrated. Nose without exudates Eyes: Pupils are equal and reactive. Sclerae anicteric Skin: Warm and dry. No rash. No petechiae, purpura Abdomen: Obese, soft Respiratory: Tachypnea, scattered rhonchi. No dullness to percussion Heart: Heart tones are regular. Capillary refill is brisk and less than 2 seconds. Nailbeds are pink Neurologic: Awake alert and oriented. Speech is clear. Moving all extremities well. No nuchal rigidity Lymphatic: No anterior or posterior cervical lymphadenopathy Musculoskeletal: Negative Homans sign. No palpable cords Psychiatric: Cooperative and alert with examiner Vital Signs During ED Visit Patient Vitals for the past 24 hrs: BP Temp Temp src Pulse Resp SpO2 Weight 06/02/21 1358 126/64 72 (!) 26 94 % 06/02/21 1238 108/54 100.4 F (38 C) Oral 75 (!) 28 90 % 06/02/21 1100 80 92 % 06/02/21 1057 (!) 86 % 06/02/21 1048 (!) 199.8 kg (440 lb 6.4 oz) 06/02/21 1047 156/67 102.3 F (39.1 C) Oral 79 (!) 26 (!) 86 % Orders/Results: Results for orders placed or performed during the hospital encounter of 06/02/21 NOVEL CORONAVIRUS LAB 1 - NASOPHARYNGEAL Specimen: NASOPHARYNGEAL; Fluid/Swab Result Value Ref Range SARS COV 2 RNA, QL REAL TIME RT PCR DETECTED (A) NOT DETECTED NARRATIVE -1 This test was performed using isothermal [employer] and has been approved as Emergency Use Authorization (EUA) for the qualitative detection [id number] nucleic acid. CBC, EDIF, PLATELET Result Value Ref Range WBC (WHITE BLOOD COUNT) 2.3 (L) 3.6 - 11.0 10*3/uL RBC 4.93 4.0 - 5.4 10*6/uL HEMOGLOBIN (HGB) 11.1 (L) 12.0 - 16.0 G/DL HEMATOCRIT (HCT) 34.4 (L) 36.0 - 48.0 % MEAN CELL VOLUME 69.9 (L) 80.0 - 100.0 FL Mean Cell HGB 22.5 (L) 26.0 - 35.0 PG MEAN CELL HGB CONCENTRATION 32.1 27.0 - 37.0 G/DL RBC DISTRIBUTION 20.4 (H) 11.5 - 14.5 % PLATELET COUNT 125 (L) 130 - 400 10*3/uL MEAN PLATELET VOLUME 8.5 7.4 - 11.0 FL NEUTROPHILS 62 37.0 - 75.0 % LYMPHOCYTE 35 20.0 - 55.0 % MONOCYTE % 3 0.0 - 10.0 % MORPHOLOGY 2+ DIFFERENTIAL TYPE MANUAL DIFF % PLATELET COMMENT DECREASED COMPREHENSIVE METABOLIC PANEL Result Value Ref Range GLUCOSE 109 (H) 70 - 100 MG/DL BUN 13 7.0 - 20.0 MG/DL CREATININE SERUM 0.95 0.5 - 1.0 MG/DL SODIUM 133 (L) 136 - 145 MMOL/L POTASSIUM 4.2 3.5 - 5.1 MMOL/L CHLORIDE 98 98 - 107 MMOL/L CALCIUM 8.2 (L) 8.4 - 10.2 MG/DL PROTEIN, TOTAL 7.4 6.3 - 8.2 GM/DL ALBUMIN 3.1 (L) 3.5 - 5.0 G/dl BILIRUBIN, TOTAL 0.5 0.2 - 1.2 MG/DL AST 58 (H) 15 - 41 IU/L ALKALINE PHOSPHATASE 79 38 - 126 IU/L CARBON DIOXIDE (CO2) 25 22 - 30 MMOL/L A/G Ratio 0.7 (L) 1.3 - 2.2 RATIO ALT 34 14 - 54 IU/L ESTIMATED GFR, NON AMER >60 ml/min/1.73sq.m ESTIMATED GFR, >60 ml/min/1.73sq.m GFR COMMENT Average GFR for 50-59 years old = 93. C REACTIVE PROTEIN Result Value Ref Range C-REACTIVE PROTEIN 143.1 (H) 0 - 10.0 MG/L SEDIMENTATION RATE, AUTOMATED Result Value Ref Range SEDIMENTATION RATE AUTOMATED 121 (H) 0 - 30 MM/HR TROPONIN I, HIGH SENSITIVITY Result Value Ref Range TROPONIN I, HIGH SENSITIVITY 12 0 - 12 pg/mL Radiographic Imaging CT PE STUDY Final Result IMPRESSION: 1. Poor contrast opacification of the pulmonary arteries is essentially nondiagnostic for pulmonary embolism. Enlargement of the main pulmonary artery suggests pulmonary arterial hypertension. 2. Cardiomegaly. 3. Extensive scattered airspace opacities throughout both lungs compatible with multifocal viral pneumonia. Procedures: Procedures Moderate Sedation Procedure: No ED Summary/MDM EKG interpreted by me shows a sinus rhythm rate of 79 bpm. ID interval 150 ms. No STEMI. QRS duration of 74 ms no previous EKGs for comparison Patient's blood work was reviewed. CT PE study shows significant pneumonic process but does not show PE it is basically nondiagnostic for PE as read by radiology. Patient's white count is 2.3 with Carlos Alberto&H of 11 and 34. Chemistry panel was reviewed and is on actionable. Sedimentation rate is elevated so is his CRP. Patient is requesting transfer to [facility]. I did speak to the [facility] weather teacher they have accepted the patient. Patient has required BiPAP as her O2 sats have diminished into the 80s while on high flow oxygen Clinical Impression: Covid pneumonia Hypoxia Local care time 42 minutes has been provided. This time excludes any and all separately billable procedure time and exudate any family discussion time. Patient will be transported via helicopter as there is no available ground squads that we will takeher No follow-ups on file. New Prescriptions No medications on file Discontinued Medications No medications on file An After Visit Summary was printed and given to the patient with above information. . Nawaf Dalton MD 06/02/21 1341 At this time there are no available transport. Med flight refused due to patient's size. I placed acall into the technical sales representatives. I spoke with this patient. [facility] They willattempt to schedule a transport in the morning to [facility]. Nawaf Dalton MD 06/02/21 1410 * Nora Dominguez RN - 06/02/2021 10:39 AM EDT Bed: E004 Expected date: Expected time: Means of arrival: Comments: EMS documented in this [facility]07-04-2021 History of Present illness Narrative* Tori Jimenes RCP - 06/02/2021 1:25 PM EDT Patient placed on BIPAP by this ICU REGISTERED NURSE. 14/8 100%. Patient tolerating well, sats increasing to 94%. [facility] Author Rubin Hadley [facility] April 08, 2024 2:34pm Note Date/Time April 08, 2024 2:30p m [facility] Medical Records Department [address] [place] [address] Discharge Summary 04/08/24 1427 MR#: [id number] Acct: [id number] Name: JESUSITA ENGLAND Rep #:[id number] 1 : 1970 54 From: Rubin frost MD PCP: VJ Maloney Status:ADM IN Location: [place] [id number] Providers Date of Admission: 04/04/24 Primary Care Physician: JV Maloney Consultations 04/06/24 14:49 Consult: Infectious Disease Routine Consulting Provider: Wander Garcia Reason for Consult: recurrent RLE cellulitis EMERGENT Consult: No MD Notified: Yes Date Notified: 04/06/24 Time Notified: 14:49 Method of Notification: Text Reason For Visit: BILATERAL LOWER EXTREMITY CELLULITIS IN SETTING OF Diagnosis Discharge Diagnosis (1) Cellulitis: Status: Acute Code(s): L03.90 - Cellulitis, unspecified Qualifiers: Site of cellulitis: extremity Site of cellulitis of extremity: lower extremity Laterality: unspecified laterality Qualified Code(s): L03.119 - Cellulitis of unspecified part of limb (2) Lymphedema associated with obesity: Status: Acute Code(s): I89.0 - Lymphedema, not elsewhere classified; E66.9 - Obesity, unspecified (3) Super obesity: Status: Acute Code(s): E66.9 - Obesity, unspecified (4) Headache: Status: Acute Code(s): R51.9 - Headache, unspecified Qualifiers: Headache type: tension-type Headache chronicity pattern: acute headache Intractability: not intractable Qualified Code(s): G44.209 - Tension-type headache, unspecified, not intractable (5) PLMD (periodic limb movement disorder): Status: Acute Code(s): G47.61 - Periodic limb movement disorder Medications at Discharge Home Medications acetaminophen 500 mg capsule 1,000 mg PO Q6H PRN Pain 07/11/21 aspirin 81 mg tablet,delayed release (Adult Low Dose Aspirin) 81 mg PO DAILY blood thinner 07/11/21 ferrous sulfate 325 mg (65 mg iron) tablet (FeroSul) 325 mg PO DAILY@1200 iron #30 tabs 08/01/21 venlafaxine 75 mg capsule,extended release 24 hr (Effexor XR) 225 mg (3 x 75 mg)PO DAILY depression #90 caps 09/03/21 lisinopril 10 mg tablet 20 mg PO DAILY blood pressure 07/24/23 omeprazole 40 mg capsule,delayed release 40 mg PO DAILY stomach 07/24/23 nystatin 100,000 unit/gram topical powder (Nyamyc) 1 applic topical BID yeast infection 30 days #60 grams 07/31/23 cholecalciferol (vitamin D3) 1 tab PO DAILY supplement 04/04/24 valacyclovir 1 gram tablet 2,000 mg PO BID PRN cold sore 04/07/24 cefdinir 300 mg capsule 300 mg PO Q12H #14 caps 04/08/24 Hospital Course Operations None Procedures None Summary of Care Provided Minutes Spent on Discharge: 35 Hospital Course: Per HPI: JESUSITA ENGLAND, is a 54 F with a past medical history of essential hypertension, super morbid obesity; with BMI of 87.2 this admission, obesity hypoventilation syndrome; on supplemental oxygen, MIGUEL; on CPAP, bilateral lower extremity lymphedema, history of stage III sacral decubitus ulcer, history of dilatation of the ascending aorta, remote history of tobacco abuse (quit 30 years ago), asthma, ESTEFANIA, history of cholecystectomy, history of foot surgery, history of hip surgery, GERD, IBS, depression with anxiety, osteoarthritis and history of admission here from August 18, 2023 to August 21, 2023 for treatment of bilateral lower extremity cellulitis requiring infectious disease consult with Dr. Garcia who presents to [facility] ER complaining of bilateral lower extremity redness and swelling. Ms. England reportsher symptoms began approximately 2 to 3 days prior to admission with a gradual onset of progressively worsening lower extremity redness and swelling typical of her previous bouts of lower extremity cellulitis. She also admits to fever of 100.2 ?F and an associated tension type headache that is persistent but she denies being bedridden, calf tenderness, varicose veins, recent surgery or history of DVT. In the ER she was diagnosed with recurrent bilateral lower extremity cellulitis in the setting of chronic lower extremity lymphedema with fever and leukocytosis of 15.7 present on admission consistent with suspected SIRS and she was then admitted to the general medical floor for ongoing care [facility] that is expected to be greater than 2 midnights. Hospital Course: 1. Right lower extremity cellulitis with bilateral chronic lower extremity lymphedema?54-year-old female whose had recurrent cellulitis in the past presents to the hospital with cellulitis in the right lower extremity. Blood cultures were negative, and infectious disease were both consulted secondary to the fact that she has had recurrent issues. They brought her down to [facility] and recommended discharge on cefdinir 300 mg p.o. twice daily for another week. Unfortunately she does not wear her lymphedema boots consistently and apparentlyher PCP had recommended that she wash with Hibiclens which she does not like doing. Given the improvement and resolution of her white count I discussed withher the plan for possible discharge today she expressed understanding risk-benefit of going home and would like to go home today. 2. Essential HTN, super morbid obesity, iron deficiency anemia, GERD, anxiety, depression are all chronic medical conditions which complicate her care. Her home medications were continued where appropriate Physical Exam Narrative General: Alert, Oriented x3, Cooperative, No apparent distress, super morbidly obese HEENT: Atraumatic, PERRLA, EOMI, Normocephalic Oral: Moist Mucosa Neck: Supple, No JVD Lungs: Diminished due to body habitus, Normal air movement, No rhonchi, No wheeze, No rales Cardiovascular: Regular rate, Regular Rhythm, Normal S1, Normal S2, No murmurs, limited due to body habitus Abdomen: Soft, Non Tender, Non-Distended, No Hepato-splenomegaly Extremities: Bilateral lower extremity lymphedema, Capillary Refill Less than 3 Seconds Skin: Right medial thigh redness with slight tenderness, no significant left thigh redness Musculoskeletal: No Tenderness to Palpation of Joints or Extremities Neurological: No focal neurological deficits, Motor Exam 5/5 strength throughout, Sensory exam intact to light touch and pain Psych/Mental Status: Normal Affect, Appropriate Weight / BMI Weight Weight: 500 lb 14.244 oz Body Mass Index (BMI) 83.3 ABG / Lab / Microbiology Data 04/07/24 06:39 04/07/24 06:39 Laboratory: Laboratory Results - last 24 hr 04/07/24 13:20: MRSA (PCR) Negative Microbiology: Microbiology 04/04/24 20:55 Blood Culture (Wb) - Anticubital Left Blood Culture - Preliminary No growth in 48 hours. 04/04/24 20:55 Blood Culture (Wb) - Port Blood Culture - Preliminary No growth in 48 hours. D/C Instructions Discharge Diet: Low fat / Low cholesterol Call your doctor if you observe: Fever of 101 or Higher, Shortness of breath, Dizziness, Fainting spells, Swelling in the ankles, Chest pain and Increased palpitations (irregular heartbeat) Meaningful Use Info Meaningful Use Meaningful Use Diagnoses (Choose all that apply): None applicable Ischemic Stroke Statin Dosing Therapy Reference: STATIN DOSE THERAPY REFERENCE: * Patients > 75 years receive moderate or high dose statin therapy. * Patients 75 years or YOUNGER should receive HIGH intensity statin dose unless contraindicated. You will be required to document reason for non-treatment if statin daily dose does not meet guidelines. HIGH DOSE STATIN THERAPY DAILY Atorvastatin > than or = to 40 mg Rosuvastatin > than or = to 20 mg Amlodipine + Atorvastatin > than or = to 2.5/40 mg Ezetimibe + Simvastatin 10/80 mg Simvastatin 80mg Discharge Plan Admission Admit Date/Time: 04/04/24 22:22 Attending Provider: Rubin Hadley Primary Care Provider: Alondra Crews Consulting Providers: Calderon Ojeda; Wander Garcia Discharge Orders/Prescriptions Prescriptions: New cefdinir 300 mg capsule 300 mg PO Q12H Qty: 14 0RF Rx Instructions: Start 04/09 Continued acetaminophen 500 mg capsule 1,000 mg PO Q6H PRN (Reason: Pain) aspirin [Adult Low Dose Aspirin] 81 mg tablet,delayed release (DR/EC) 81 mg PO DAILY ferrous sulfate [FeroSul] 325 mg (65 mg iron) Tablet 325 mg PO DAILY@1200 Qty: 30 0RF venlafaxine [Effexor XR] 75 mg capsule,extended release 24hr 225 mg PO DAILY Qty: 90 0RF Rx Instructions: take 3 capsules every AM omeprazole 40 mg capsule,delayed release(DR/EC) 40 mg PO DAILY Patient Comments: TAKE 1 CAPSULE BY MOUTH ONCE DAILY lisinopril 10 mg tablet 20 mg PO DAILY Patient Comments: TAKE 1 TABLET BY MOUTH ONCE DAILY nystatin [Nyamyc] 100,000 unit/gram Powder 1 applic topical BID 30 Days Qty: 60 0RF Protocol: *Topical Application Instructions APPLICATION INSTRUCTIONS: apply to skin folds, particularly BLE cholecalciferol (vitamin D3) 1 tab PO DAILY valacyclovir 1 gram tablet 2,000 mg PO BID PRN (Reason: cold sore) Patient Comments: x1 day Referrals / Follow Up: Alondra Crews PA [Primary Care Provider] - Within 1 Week Disposition Disposition (needs filled in before D/C Order can be placed): Home, Self Care Charges/Coding Visit Charges Inpatient E&M: 81544 Disch Hosp >30min 04/08/24 1434 <Electronically signed by Rubin Hadley MD> Cosigner Signature (if applicable): CC: Dr. Rubin Hadley MD; VJ Maloney~ Signed [facility] Work Phone: Evaluation note* Diagnosis Exertional shortness of breath Shortness of breath [facility] Diagnosis Pneumonia due to 2019 novel coronavirus Acute respiratory failure with hypoxia Acute respiratory failure Sepsis associated with acute hypoxic respiratory failure without septic shock secondary to Pneumonia GERD without esophagitis Esophageal reflux Super-super obese Morbid obesity Obstructive sleep apnea syndrome Obstructive sleep apnea (adult) (pediatric) Pancytopenia Other pancytopenia Iron deficiency anemia due to chronic blood loss Iron deficiency anemia secondary to blood loss (chronic) Leukopenia Leukocytopenia, unspecified Thrombocytopenia Thrombocytopenia, unspecified [facility] Diagnosis Pneumonia due to COVID-19 virus- Primary Pressure injury of right buttock, stage 3 ([facility]) Palliative care encounter Encounter for palliative care COVID-19 Anxiety Anxiety state, unspecified Insomnia Insomnia, unspecified Constipation Unspecified constipation Gastroesophageal reflux disease without esophagitis Esophageal reflux Angular cheilitis 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) use of antibiotics MIRIAM (acute kidney injury) (HCC) Acute kidney failure, unspecified Hyponatremia Hyposmolality and/or hyponatremia Poor intravenous access Other specified conditions influencing health status Obstructive sleep apnea syndrome Obstructive sleep apnea (adult) (pediatric) Body mass index (BMI) of 70 or greater in adult (HCC) Body Mass Index 70 and over, adult Iron deficiency anemia due to chronic blood loss Iron deficiency anemia secondary to blood loss (chronic) Morbid obesity (HCC) Morbid obesity Ventilator associated pneumonia (HCC) Ventilator associated pneumonia Evin albicans infection Candidiasis of unspecified site MRSA pneumonia (HCC) Methicillin resistant pneumonia due to Staphylococcus aureus MSSA (methicillin susceptible Staphylococcus aureus) pneumonia ([facility]) Methicillin susceptible pneumonia due to Staphylococcus aureus documented in this encounter [facility] Work Phone: Evaluation note* Diagnosis Muscle swelling Swelling of limb Nodule of soft tissue Localized superficial swelling, mass, or lump [facility] Diagnosis Onset Date Resolution Status Hypoxemia requiring supplemental oxygen acute Lymphedema associated with obesity acute MIGUEL (obstructive sleep apnea) chronic [facility] Work Phone: Evaluation noteNo assessment information available [facility] Work Phone: Evaluation note* Diagnosis Onset Date Resolution Status Cellulitis acute Failure of outpatient treatment acute Hyperglycemia acute Obesity acute [facility] Work Phone: Evaluation note* Diagnosis Onset Date Resolution Status Cellulitis acute Failure of outpatient treatment acute Hyperglycemia acute Lymphedema associated with obesity acute Obesity acute [facility] Work Phone: evaluation note* Diagnosis Onset Date Resolution Status Cellulitis acute Lymphedema associated with obesity acute Cellulitis acute Lymphedema associated with obesity acute Sepsis acute [facility] Work Phone: Evaluation note* Diagnosis Morbid obesity (HCC)- Primary Morbid obesity Recurrent cellulitis of lower extremity Chronic acquired lymphedema Other noninfectious lymphedema [facility] Diagnosis Onset Date Resolution Status Cellulitis acute Headache acute Lymphedema associated with obesity acute PLMD (periodic limb movement disorder) acute Super obesity acute [facility] Work Phone: evaluation note* Diagnosis Positive LIZ (antinuclear antibody)- Primary Other and unspecified nonspecific immunological findings Arthralgia, unspecified joint CRP elevated Elevated C-reactive protein (CRP) Lymphedema Other noninfectious lymphedema Recurrent cellulitis [facility] Author Arthur Thompson [facility] August 18, 2023 12:50am Note Date/Time August 18, 2023 12:46am [facility] System Medical Records Department [address] [place] [id number] History & Physical Exam 08/18/235 MR#: [id number] Acct: [id number] Name: JESUSITA ENGLAND Rep #:[id number] 2 : 1970 53 From: Arthur Thompson MD PCP: VJ Maloney Status:REG ER Location: ED HPI - General General Date of Admission: 08/18/23 Date of Service: 08/18/23 Chief Complaint: Cellulitis HPI Narrative JESUSITA ENGLAND, is a 53 F who presents to the emergency room with chief complaint of cellulitis of the bilateral lower extremities around her knees. She had beenadmitted and treated for this and discharged July 31 and was sent home with Omnicef after receiving Rocephin and patient. She has been off antibiotics for 7 days and the cellulitis has recurred and now she is feeling fatigued and febrile. She denies nausea, or shortness of breath. She has an elevated white blood cell count of 16,000 with a left shift and a lactic acid of 2.4. She has been receiving IV fluids and antibiotics in the emergency room and will be admitted for further IV antibiotics and fluid. [facility] Medical History Abnormal echocardiogram Anxiety Ascending aorta dilatation Asthma Depression Failure of outpatient treatment GERD without esophagitis Heel spur Hyperglycemia IBS (irritable bowel syndrome) Insomnia Osteoarthritis (arthritis due to wear and tear of joints) Home Medications acetaminophen 500 mg capsule 1,000 mg PO Q6H PRN Pain 07/11/21 [History Last Taken Unknown] aspirin 81 mg tablet,delayed release (Adult Low Dose Aspirin) 81 mg PO DAILY 07/11/21 [History Last Taken Unknown] ascorbic acid (vitamin C) 500 mg tablet 500 mg PO 1200 #0 tabs 08/01/21 [Rx Last Taken Unknown] ferrous sulfate 325 mg (65 mg iron) tablet (FeroSul) 325 mg PO DAILY@1200 #30 tabs 08/01/21 [Rx Last Taken Unknown] magnesium oxide 400 mg PO DAILY #30 caps 08/01/21 [Rx Last Taken Unknown] venlafaxine 75 mg capsule,extended release 24 hr (Effexor XR) 225 mg (3 x 75 mg)PO DAILY #90 caps 09/03/21 [Rx Last Taken Unknown] Lactobacillus acidophilus (Acidophilus capsule) 10 mg PO DAILY 07/24/23 [History Last Taken Unknown] cholestyramine (with sugar) 4 gram oral powder ea 07/24/23 [History Last Taken Unknown] doxycycline hyclate 100 mg capsule 100 mg PO BID 07/24/23 [History Last Taken Unknown] lisinopril 10 mg tablet 10 mg PO DAILY 07/24/23 [History Last Taken Unknown] omeprazole 40 mg capsule,delayed release 40 mg PO DAILY 07/24/23 [History Last Taken Unknown] pediatric multivitamin .Route 07/24/23 [History Last Taken Unknown] cefdinir 300 mg capsule 300 mg PO Q12H 10 days #20 caps 07/31/23 [Rx Last Taken Unknown] nystatin 100,000 unit/gram topical powder (Nyamyc) 1 applic topical BID 30 days #60 grams 07/31/23 [Rx Last Taken Unknown] Allergy/AdvReac Type Severity Reaction Status Date / Time adhesive tape AdvReac Unknown Other Verified 08/17/23 22:24 Family History Mother Alzheimer's dementia Surgical History H/O foot surgery History of cholecystectomy History of hip surgery Social History household members: spouse housing: house number of children: 1 current occupational status: employed 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 For lunch she has a bowl of soup and crackers which she takes to work. Sometimes has pretzels for a snack. Eats lunch at 12:30- 1 and does not get home until 7 PM and then she is starved. Her sometimes cooks and it is usually not healthy and may include pizza, hotdogs, fast food. Does not plan meals and her hisband is not supportive of healthy eating. He is a little overweight and likes to eat junk. ROS Constitutional Constitutional: Reports chills, fatigue and fever(s) Eyes Eyes: Denies blurry vision ENT HEENT: Denies abnormal hearing Cardiovascular Cardiovascular: Denies chest pain Respiratory/Chest Respiratory/Chest: Denies shortness of breath at rest Gastrointestinal Gastrointestinal: Denies abdominal pain Genitourinary Genitourinary: Denies dysuria Musculoskeletal Musculoskeletal: Reports joint pain Integumentary Integumentary: Denies dry skin Neurologic Neurologic: Denies abnormal speech or confusion Psychiatric Psychiatric: Denies anxiety Vital Signs Vital Signs Vital Signs: 08/17/23 22:20 08/17/23 23:11 08/17/23 23:46 Temperature 98.6 F 101.3 F H Temperature Source Temporal Oral Pulse Rate 99 86 Respiratory Rate 20 H 22 H Blood Pressure 131/82 H 129/72 H Blood Pressure Mean 98 91 Pulse Ox 98 97 Oxygen Delivery Method Room Air Room Air Room Air Weight Weight: 479 lb 15.141 oz Body Mass Index (BMI) 82.3 Physical Exam Const oriented x3 HEENT normocephalic and head/scalp atraumatic Eyes PERRL and EOMs intact bilaterally Neck no lymphadenopathy Lymph Lymphatic: no lymphadenopathy noted Resp normal respiratory effort, normal air movement and clear to auscultation bilaterally Cardio regular rate, regular rhythm, S1 normal heart sound, S2 normal heart sound and no murmurs GI normal to inspection, nondistended, normoactive bowel sounds Extremity normal capillary refill Skin Skin Narrative: Bilateral lower extremity cellulitis from mid upper calf to medial thigh on bothlegs. Patient is morbidly obese General Skin Exam: no breakdown Neuro no focal motor deficits and no sensory deficits noted Psych thought process normal, cooperative and affect normal Results Lab / Micro Data 08/17/23 23:00 08/17/23 23:00 Labs: Laboratory Results - last 24 hr 08/17/23 23:00: WBC 16.8 H, RBC 4.57, Hgb 12.5, Hct 39.9, MCV 87.3, MCH 27.4, MCHC 31.3 L, RDW Std Deviation 48.9 H, RDW Coeff of Rani 15.3 H, Plt Count 190, MPV 10.0, Immature Gran % (Auto) 0.800, Neut % (Auto) 90.9 H, Lymph % (Auto) 3.2L, [place] % (Auto) 5.0, Eos % (Auto) 0.0, Baso % (Auto) 0.1, Absolute Neuts (auto)15.3 H, Absolute Lymphs (auto) 0.54 L, Nucleated RBC % 0, Anisocytosis 1+, ESR 28, PT 12.9, INR 1.0, APTT 32.0, Sodium 136, Potassium 4.6, Chloride 103, CarbonDioxide 29.0, Anion Gap 4 L, BUN 20 H, Creatinine 0.92, Est GFR (MDRD) Af Amer 82, Est GFR (MDRD) Non-Af 68, BUN/Creatinine Ratio 21.8 H, Glucose 101, Lactic Acid 2.4 H*, Calcium 8.8, Total Bilirubin 0.40, AST 15, ALT 19, Alkaline Phosphatase 81, C-React Prot Ext Range 53.20 H, Total Protein 7.6, Albumin 3.3, Globulin 4.3 H, Albumin/Globulin Ratio 0.8 L Radiology Impression Chest X-Ray 08/17/23 22:38 IMPRESSION: No radiographic evidence of acute cardiopulmonary disease. Electronically Signed: Oli Stanley MD at 23:46 EDT Reading Location ID and State: [facility] / [place] Tel , Service support , Assessment & Plan Assessment/Plan (1) Cellulitis: (2) Lymphedema associated with obesity: (3) IBS (irritable bowel syndrome): PLAN: Plan 1 cellulitis of the lower extremities bilaterally?admit patient to general medical floor, IV Rocephin 2 g every 24 hours, repeat CBC BMP and lactic acid level, continue IV fluids at a rate of 150 cc/h. 2. Irritable bowel syndrome?continue routine home medications 3. DVT prophylaxis?low molecular weight heparin Charges/Coding Visit Charges Inpatient E&M: 12661 Init Hosp L2 08/18/23 0050 <Electronically signed by Arthur Thompson MD> Cosigner Signature (if applicable): CC: Dr. Arthur Thompson MD; VJ Maloney~ Signed [facility] Work Phone: History of Present illness Narrative* Initial onset of obesity was in childhood. * Their goal for surgery is to be healthier and to lose weight. Better quality of life. * The patient has tried multiple diets to lose weight including a low calorie diet, a low carbohydrate diet and Weight Watchers Diet. Herbalife, * The patient was most successful with a low calorie diet and Most Lbs Lost 67. * The patient considers portion size as their dietary weakness. late night meals, poor choices, no routine, Dr. Yeager, stress eating. She has had a maximum weight of 500 pounds and lowest weight ever of 250 pounds. * Distribution of obesity is general. * Severity of obesity is Class 3 which is a BMI of greater than or equal to 40. * The patient * The patient does not exercise. TBD. * Symptoms: The patient is experiencing daytime tiredness, decreased exercise tolerance, decreased range of motion, heartburn, poor self esteem and snoring. * Comorbidities: back pain, depressed mood, edema, esophageal reflux, heart disease, high cholesterol, joint pain, urinary incontinence, sleep apnea using an appliance and hypertension controlled with oral meds. * GERD * Patient has reflux. * Symptoms: heartburn and dysphagia. * Patient is using medications for reflux. Medication: Omeprazole - 40 mg once a day. * 1. How bad is the heartburn? 2 = Symptoms noticeable and bothersome but not every day * 2. Heartburn when lying down? 2 = Symptoms noticeable and bothersome but not every day * 3. Heartburn when standing up? 2 = Symptoms noticeable and bothersome but not every day * 4. Heartburn after meals? 2 = Symptoms noticeable and bothersome but not every day * 5. Does heartburn change your diet? 0 = No symptom * 6. Does heartburn wake you from sleep? 2 = Symptoms noticeable and bothersome but not every day * 7. Do you have difficulty swallowing? 0 = No symptom * 8. Do you have pain with swallowing? 0 = No symptom * 9. If you take medication, does this affect your daily life? 2 = Symptoms noticeable and bothersomebut not every day * 10. How bad is the regurgitation? 0 = No symptom * 11. Regurgitation when lying down? 0 = No symptom * 12. Regurgitation when standing up? 0 = No symptom * 13. Regurgitation after meals? 0 = No symptom * 14. Does regurgitation change your diet? 0 = No symptom * 15. Does regurgitation wake you from sleep? 0 = No symptom * 16. How satisfied are you with your present condition? Dissatisfied * Total Score: 12 * Jesusita is a 52 YO female travel patient (BMI 85) present for initial evaluation for WLS with Dr Huertas due to an inability to lose and/or maintain weight loss. Tired of not being able to do anything. * Jesusita states she has struggled with her weight all her life and has consistently yo-yo'd She states she is not very mobile any more as a result of her weight. She has done many diets in the pastbut was more successful with weight watchers. She states her dietary weaknesses are late night meals, large portion sizes, poor choices, no routine, Dr. Yeager, and stress eating. SHe is not currently exercising due to her mobility. * was eating all veggies and lost weight. * Medical history includes, back pain, depression, lower extremity edema, GERD, heart disease, HTN, joint pain, lymphadema, MIGUEL on BiPAP, osteoarthritis, SOB on exertion, and urinary incontinence. * Surgical history includes hip surgery in childhood, lap-darcie, and bone spurs removed from feet. * Patient denies smoking, rare alcohol consumption, is and works full-time. * Initial labs are noted as in progress. [facility] DO Work Phone: reason for visit Narrative* Evaluate and Treat (Routine) - Pending Review Specialty Diagnoses / Procedures Referred By Contac t Referred To Contact Rheumatology Diagnoses Arthralgia, unspecified joint Positive LIZ (antinuclear antibody) CRP elevated Provider, Generic Yamile Alva DO [address] [place] [address] Phone: tel: fax: Referral ID Status Reason Start Date Expiration Date V isits Requested Visits Authorized [id number] Pending Review 06/29/2024 06/29/2025 1 1 [facility] Summary Purpose Family History Relationship Condition Age at Onset Recorded Date/T cornelio mother Alzheimer's dementia Unknown Unknown Family Member Name Dates Details Family history of obesity: Ashli boss Family Members(V18.19, Z83.49) Status:Active Family history of dementia: Multiple Family Members(V17.2, Z81.8) Status:Active Parkinson disease, symptomat ic: Multiple Family Members Status:Active Unknown Family Member Name Dates Details Family history of obesity: Ashli boss Family Members(V18.19, Z83.49) Status:Active Family history of dementia: Multiple Family Members(V17.2, Z81.8) Status:Active Parkinson disease, symptomat ic: Multiple Family Members Status:Active Advance Directives Latest Code Status on File Code Status Date Activated Date Inactivated Comments Full Code 06/02/2021 3:44 PM Latest Code Status on File Code Status Date Activated Date Inactivated Comments Full Code 06/03/2021 4:28 PM Advance Directive Response Recorded Date/ Time Living Will No July 04, 2021 4:22pm Power of Derrick Boat Lever Operator No July 04 4:22pm Advance Directive Response Recorded Date/ Time Living Will No July 08, 2023 8:16am Power of Derrick Boat Lever Operator No July 08 8:16am Advance Directive Response Recorded Date/ Time Name of Medical Power of Derrick Boat Lever Operator ABHISHEK SANDERS July 24, 2023 11:19pm Living Will No July 24 11:19pm Power of Derrick Boat Lever Operator Yes July 24, 023 11:19pm Advance Directive Response Recorded Date/ Time Name of Medical Power of Derrick Boat Lever Operator sister July 25, 2023 3:01am Living Will Yes July 25 3:01am Power of Derrick Boat Lever Operator Yes July 25, 023 3:01am Advance Directive Response Recorded Date/ Time Name of Medical Power of Derrick Boat Lever Operator sister July 25, 2023 3:01am Living Will No August 17, 2023 10:41pm Power of Derrick Boat Lever Operator No July 10:41pm Advance Directive Response Recorded Date/ Time Name of Medical Power of Derrick Boat Lever Operator sister July 25, 2023 3:01am Name of Medical Power of Derrick Boat Lever Operator maggie kunz August 18, 2023 1:42am Living Will Yes August 18, 2023 1:42am Power of Derrick Boat Lever Operator Yes July 1:42am Living Will - Effective on . Expiration date unspecified. Scanned Document is available upon request. Effective:06-Aug-2023 Living Will - Effective on . Expiration date unspecified. Scanned Document is available upon request. Effective:06-Aug-2023 Living Will - Effective on . Expiration date unspecified. Scanned Document is available upon request. Effective:06-Aug-2023 Living Will - Effective on . Expiration date unspecified. Scanned Document is available upon request. Effective:06-Aug-2023 Living Will - Effective on . Expiration date unspecified. Scanned Document is available upon request. Effective:06-Aug-2023 Living Will - Effective on . Expiration date unspecified. Scanned Document is available upon request. Effective:06-Aug-2023 Living Will - Effective on . Expiration date unspecified. Scanned Document is available upon request. Effective:06-Aug-2023 Living Will - Effective on . Expiration date unspecified. Scanned Document is available upon request. Effective:06-Aug-2023 Advance Directive Response Recorded Date/ Time Living Will Yes April 04, 2024 9: 15pm Power of Derrick Boat Lever Operator Yes April 04, 2024 9:15pm Name of Medical Power of Derrick Boat Lever Operator sister April 04, 2024 9:15pm Living Will - Effective on . Expiration date unspecified. Scanned Document is available upon request. Effective:06-Aug-2023 Living Will - Effective on . Expiration date unspecified. Scanned Document is available upon request. Effective:06-Aug-2023 Living Will - Effective on . Expiration date unspecified. Scanned Document is available upon request. Effective:06-Aug-2023 Living Will - Effective on . Expiration date unspecified. Scanned Document is available upon request. Effective:06-Aug-2023 Advance Directive Response Recorded Date/ Time Name of Medical Power of Derrick Boat Lever Operator maggie kunz April 04, 2024 11:38pm Living Will Yes April 04, 2024 11 :38pm Power of Derrick Boat Lever Operator Yes April 04, 2024 11:38pm Living Will - Effective on . Expiration date unspecified. Scanned Document is available upon request. Effective:06-Aug-2023 Living Will - Effective on . Expiration date unspecified. Scanned Document is available upon request. Effective:06-Aug-2023 Living Will - Effective on . Expiration date unspecified. Scanned Document is available upon request. Effective:06-Aug-2023 Living Will - Effective on . Expiration date unspecified. Scanned Document is available upon request. Effective:06-Aug-2023 Living Will - Effective on . Expiration date unspecified. Scanned Document is available upon request. Effective:06-Aug-2023 Living Will - Effective on . Expiration date unspecified. Scanned Document is available upon request. Effective:06-Aug-2023 Living Will - Effective on . Expiration date unspecified. Scanned Document is available upon request. Effective:06-Aug-2023 Living Will - Effective on . Expiration date unspecified. Scanned Document is available upon request. Effective:06-Aug-2023 Living Will - Effective on . Expiration date unspecified. Scanned Document is available upon request. Effective:06-Aug-2023 Living Will - Effective on . Expiration date unspecified. Scanned Document is available upon request. Effective:06-Aug-2023 Living Will - Effective on . Expiration date unspecified. Scanned Document is available upon request. Effective:06-Aug-2023 Living Will - Effective on . Expiration date unspecified. Scanned Document is available upon request. Effective:06-Aug-2023 Living Will - Effective on . Expiration date unspecified. Scanned Document is available upon request. Effective:06-Aug-2023 Living Will - Effective on . Expiration date unspecified. Scanned Document is available upon request. Effective:06-Aug-2023 Living Will - Effective on . Expiration date unspecified. Scanned Document is available upon request. Effective:06-Aug-2023 Living Will - Effective on . Expiration date unspecified. Scanned Document is available upon request. Effective:06-Aug-2023 Living Will - Effective on . Expiration date unspecified. Scanned Document is available upon request. Effective:06-Aug-2023 Living Will - Effective on . Expiration date unspecified. Scanned Document is available upon request. Effective:06-Aug-2023 Living Will - Effective on . Expiration date unspecified. Scanned Document is available upon request. Effective:06-Aug-2023 Living Will - Effective on . Expiration date unspecified. Scanned Document is available upon request. Effective:06-Aug-2023 Living Will - Effective on . Expiration date unspecified. Scanned Document is available upon request. Effective:06-Aug-2023 Living Will - Effective on . Expiration date unspecified. Scanned Document is available upon request. Effective:06-Aug-2023 Living Will - Effective on . Expiration date unspecified. Scanned Document is available upon request. Effective:06-Aug-2023 Living Will - Effective on . Expiration date unspecified. Scanned Document is available upon request. Effective:06-Aug-2023 Living Will - Effective on . Expiration date unspecified. Scanned Document is available upon request. Effective:06-Aug-2023 Living Will - Effective on . Expiration date unspecified. Scanned Document is available upon request. Effective:06-Aug-2023 Living Will - Effective on . Expiration date unspecified. Scanned Document is available upon request. Effective:06-Aug-2023 Living Will - Effective on . Expiration date unspecified. Scanned Document is available upon request. Effective:06-Aug-2023 Living Will - Effective on . Expiration date unspecified. Scanned Document is available upon request. Effective:06-Aug-2023 Discharge Instructions * Attachments The following attachments cannot be sent through Care Everywhere. * Flank Pain (Amharic) * Back: Strain (Amharic) documented in this encounter Assessments Diagnosis Flank pain Abdominal pain, unspecified site Reason for Referral Status Reason Specialty Diagnoses / Procedures Referred By Contact Referred To Contact Closed Cardiovascular Medicine Diagnoses Exertional shortness of breath Procedures ECHOCARDIOGRAM ID ECHO HEART XTHORACIC,COMPLETE W DOPPLER Alondra Crews, RAYNE [address] [place] [address] Pr[facility]akar Ont Echocardiograph y [address] [place] [id number] Status Reason Specialty Diagnoses / Procedures Re ferred By Contact Referred To Contact New Request Procedures INPATIENT ADMISSION NOTIFICATION Guilherme Naranjo, DO [address] [place] [address] Status Reason Specialty Diagnoses / Procedures Referred By Contact Referred To Contact New Request Procedures ECG Nawaf Dalton MD [address] [place] [address] Status Reason Specialty Diagnoses / Procedures Referred By Contact Referred To Contact Open Specialty Services Required IP Unit Diagnoses Pressure injury of right buttock, stage 3 (HCC) Ach 5n Overflow [address] [place] [address] [facility] [address] [place] [address] Scheduling Instructions [facility] [address] [place] [id number] Specialty Diagnoses / Procedures Referred By Contac t Referred To Contact Ultrasound Diagnoses Muscle swelling Nodule of soft tissue Procedures US SOFT TISSUE Alondra Crews PA-C [address] [place] [address] Pr[facility] [address] [place] [address] Referral ID Status Reason Start Date Expiration Date Visits Re quested Visits Authorized [id number] Closed 02/21/2022 03/18/2023 1 1 Chief Complaint and Reason for Visit Chief Complaint 3 M FU LEXISCAN SOB Reason for Visit Hypoxemia requiring supplemental oxygen Lymphedema associated with obesity MIGUEL (obstructive sleep apnea) Chief Complaint RIGHT KNEE Chief Complaint RIGHT KNEE CELLULITIS Cellulitis Reason for Visit Cellulitis Failure of outpatient treatment Hyperglycemia Obesity Chief Complaint RIGHT KNEE CELLULITIS Cellulitis Cellulitis Cellulitis Cellulitis Cellulitis Cellulitis Cellulitis Reason for Visit Cellulitis Failure of outpatient treatment Hyperglycemia Lymphedema associated with obesity Obesity Chief Complaint RIGHT KNEE CELLULITIS Cellulitis Cellulitis Cellulitis Cellulitis Cellulitis Cellulitis Cellulitis BILATERAL LOWER EXTREMITY CELLULITIS Reason for Visit Cellulitis Lymphedema associated with obesity Cellulitis Lymphedema associated with obesity Sepsis Chief Complaint RIGHT KNEE CELLULITIS Cellulitis Cellulitis Cellulitis Cellulitis Cellulitis Cellulitis Cellulitis BILATERAL LOWER EXTREMITY CELLULITIS BILATERAL LOWER EXTREMITY CELLULITIS BILATERAL LOWER EXTREMITY CELLULITIS BILATERAL LOWER EXTREMITY CELLULITIS Reason for Visit Cellulitis Lymphedema associated with obesity Cellulitis Lymphedema associated with obesity Sepsis Chief Complaint BILATERAL LOWER EXTR EMITY CELLULITIS IN SETTING OF Chief Complaint BILATERAL LOWER EXTR EMITY CELLULITIS IN SETTING OF BILATERAL LOWER EXTREMITY CELLULITIS IN SETTING OF BILATERAL LOWER EXTREMITY CELLULITIS IN SETTING OF BILATERAL LOWER EXTREMITY CELLULITIS IN SETTING OF BILATERAL LOWER EXTREMITY CELLULITIS IN SETTING OF Reason for Visit Cellulitis Headache Lymphedema associated with obesity PLMD (periodic limb movement disorder) Super obesity Chief Complaint * The patient is being seen initial visit. * Jesusita is a 52 YO female patient present for initial evaluation for WLS with Dr. Huertas. * PsychChiefComplaintFreeTextNoteForm_UH: * An interactive audio and video telecommunication system which permits real time communications between the patient (at the originating site) and provider (at the distant site) was utilized to providethis telehealth service. * Verbal consent was requested and obtained from JESUSITA ENGLAND on this date, 02/02/2023 09:00 AM , for a telehealth visit. * Required pre-bariatric surgery psychological evaluation Additional Source Comments INFORMATION SOURCE (unrecogn ized section and content) DATE CREATED AUTHOR 05/20/2018 [facility] DATE CREATED AUTHOR AUTHOR'S ORGANIZ ATION 05/19/2021 [facility] DATE CREATED AUTHOR AUTHOR'S ORGANIZ ATION 08/12/2021 [facility] DATE CREATED AUTHOR AUTHOR'S ORGANIZ ATION 03/01/2022 [facility] DATE CREATED AUTHOR AUTHOR'S ORGANIZ ATION 02/04/2023 [employer] DATE CREATED AUTHOR AUTHOR'S ORGANIZ ATION 09/08/2023 [facility] [employer] [facility] DATE CREATED AUTHOR AUTHOR'S ORGANIZ ATION 10/11/2023 [facility] DATE CREATED AUTHOR AUTHOR'S ORGANIZ ATION 07/26/2024 [facility] DATE CREATED AUTHOR AUTHOR'S ORGANIZ ATION 11/16/2024 [facility] DATE CREATED AUTHOR AUTHOR'S ORGANIZ ATION [facility] Reason for Visit (unrecogniz ed section and content) Reason Comments Abdominal Pain x4 days left lower q uadrant, gallbadder removed, no pain medication helping, last BM today, pt passing gas Status Reason Specialty Diagnoses / Procedures Referred By Contact Referred To Contact Closed Cardiovascular Medicine Diagnoses Exertional shortness of breath Procedures ECHOCARDIOGRAM ID ECHO HEART XTHORACIC,COMPLETE W DOPPLER Alondra Crews PA-C [address] [place] [address] Prabhakar Ont Echocardiograph y [address] [place] [address] Reason Comments COVID-19 per EMS, pt c/o covi d symptoms, cough and SOB. pt spouse (+) COVID Status Reason Specialty Diagnoses / Procedures Referre d By Contact Referred To Contact Reason Comments Specialty Diagnoses / Procedures Referred By Contac t Referred To Contact Ultrasound Diagnoses Muscle swelling Nodule of soft tissue Procedures US SOFT TISSUE Alondra Crews PA-C [address] [place] [address] [facility] [address] [place] [address] Referral ID Status Reason Start Date Expiration Date Visits Re quested Visits Authorized [id number] Closed 02/21/2022 03/18/2023 1 1 Reason Comments Follow-up Recurrent cellulitis (est pt, new to Dr. Tavera) Specialty Diagnoses / Procedures Referred By Contruben t Referred To Contact Infectious Diseases Diagnoses Recurrent cellulitis; pt was started on amox daily for suppression Procedures ID OFFICE/OUTPATIENT NEW MODERATE MDM 45-59 MINUTES Alondra Crews PA-C [address] [place] [address] [facility] [address] [place] [address] Referral ID Status Reason Start Date Expiration Date Visits Re quested Visits Authorized [id number] Closed 08/28/2023 08/28/2024 1 1 Scheduled Active and Recently Administ ered Medications (unrecognized section and content) Medication Order 06/01/2021 06/02/2021 06/03/2021 acetaminophen (TYLENOL) tablet 650 mg (COMPLETED) 650 mg, Oral, ONCE, 1 dose, On 06/02/21 at 1130, Maximum dose of acetaminophen is 3000 mg from all sources in 24 hours. 1054 (Given - Provider: Adina Fernandez RN) Acetylcysteine (NAC) capsule 1,200 mg 1,200 mg, Oral, EVERY 12 HOURS, First dose on 06/02/21 at 2100, Until Discontinued 2133 (Given - Provider: Scottie Cloud RN) 0824 (Given - Provider: Mandy Mckenna RN) ascorbic acid (VITAMIN C) tablet 500 mg 500 mg, Oral, DAILY, First dose on Thu06/03/21 at 0900, Until Discontinued 823 (Given - Provid er: Mandy Mckenna RN) b-complex/zinc (STRESS FORMULA with Zinc) tablet 1 tablet 1 tablet, Oral, DAILY, First dose on Thu06/03/21 at 0900, Until Discontinued 823 (Given - Provid er: Mandy Mckenna RN) budesonide (PULMICORT) nebulizer suspension 0.5 mg 0.5 mg, Inhalation, 2 TIMES DAILY, First dose on Thu06/02/21 at 1900, Until Discontinued 194 (Given - Provider: Debra Larson, FREDDY) 07 (Given - Provider: Kristin Matos RRT) enOXAParin (LOVENOX) injection 40 mg 40 mg, Subcutaneous, DAILY, First dose on Thu06/03/21 at 0900, Until Discontinued, Indications: DVT/PE prophylaxis 823 (Given - Provid er: Mandy Mckenna RN) gabapentin (NEURONTIN) capsule 300 mg 300 mg, Oral, DAILY, First dose on Thu06/03/21 at 0900, Until Discontinued 823 (Given - Provid er: Mandy Mckenna RN) iohexol (OMNIPAQUE) 350 MG/ML injection 75 mL (COMPLETED) 75 mL, Intravenous, ONCE, 1 dose, On Thu06/02/21 at 1230, Extravasation Risk, Radiology Procedure 1218 (Given - Radiology - Provider: Kleber Bermudez) levoFLOXacin (LEVAQUIN) 750 mg in dextrose 5% premix IVPB 750 mg, Intravenous, Administer over 90 Minutes, EVERY 24 HOURS, First dose on Thu06/02/21 at 1130, Until Discontinued 1058 ($$New Bag$$ - Provider: Adina Fernandez, MORIS)1358 (Stopped - Provider: Nora Dominguez RN) 1130 (Canceled Entry - Provider: System Discharge - Comment: Automatically canceled at discontinue of medication order) magnesium sulfate 2 g/50 mL in sterile water premix IVPB 2 g 50 mL (total volume) 2 g, Intravenous, Administer over 4 Hours, DAILY, First dose on Thu06/03/21 at 0600, Until Discontinued, Give if magnesium is less than 2 on morning labs. Infuse at a rate of 0.5 gm/hour. 0646 (Not Given - Provider: Scottie Cloud RN - Reason: Order Parameters not met) methylPREDNISolone sodium succinate (SOLU-MEDROL) injection 125 mg (COMPLETED) 125 mg, Intravenous, ONCE, 1 dose, On Thu06/02/21 at 1130 1054 (Given - Provider: Adina Fernandez, MORIS) methylPREDNISolone sodium succinate (SOLU-MEDROL) injection 125 mg 125 mg, Intravenous, EVERY 6 HOURS, First dose (after last modification) on Thu06/02/21 at 1800, Until Discontinued 1740 (Given - Provider: Nikia Vines, MORIS) 0014 (Given - Provider: Scottie Cloud RN)0541 (Given - Provider: Scottie Cloud RN)1200 (Canceled Entry - Provider: System Discharge - Comment: Automatically canceled at discontinue of medication order) multivitamin tablet 1 tablet 1 tablet, Oral, DAILY, First dose on Thu06/03/21 at 0900, Until Discontinued 0824 (Given - Provid er: Mandy Mckenna RN) pantoprazole (PROTONIX) tablet DR 40 mg 40 mg, Oral, DAILY, First dose (after last modification) on Thu06/02/21 at 2215, Until Discontinued, Do not crush., Indications: Inpt Stress Ulcer Prophylaxis 2220 (Given - Provider: Scottie Cloud RN) 0824 (Given - Provider: Mandy Mckenna RN) potassium chloride (K-DUR) tablet ER 40 mEq(Linked Group 1) 40 mEq, Oral, DAILY, First dose on Thu06/03/21 at 0600, Until Discontinued, Give if potassium is 3.1 to 3.4 on morning labs and patient is able to tolerate oral medications Swallow tablets whole; do not crush, chew, or suck on tablet. Tablet may also be broken in half and each half swallowed separately. 0646 (See Alternativ e - Provider: Scottie Cloud RN) potassium chloride 40 mEq in 0.9% sodium chloride 500 ml IVPB(Linked Group 1) 40 mEq, Intravenous, at 125 mL/hr, Administer over 4 Hours, DAILY, First dose on Thu06/03/21 at 0600, Until Discontinued, Give if potassium is less than 3.1 on morning labs OR if potassium is 3.1 to 3.4 on morning labs and patient is UNABLE to tolerate oral medications 0646 (Not Given - Provider: Scottie Cloud RN - Reason: Order Parameters not met) remdesivir (VEKLURY) 100 mg in sodium chloride 0.9% 250 mL (total volume) infusion 100 mg, Intravenous, at 500 mL/hr, Administer over 30 Minutes, EVERY 24 HOURS, 4 doses, First dose on Thu06/03/21 at 1600, Last dose on Carla 06/06/21 at 1600, After infusion complete, flush tubing with 30mL NS at same rate as infusion. remdesivir (VEKLURY) 200 mg in sodium chloride 0.9% 250 mL (total volume) infusion (COMPLETED) 200 mg, Intravenous, at 500 mL/hr, Administer over 30 Minutes, ONCE, 1 dose, On [place] 06/02/21 at 1700, After infusion complete, flush tubing with 30mL NS at same rate as infusion. 1740 ($$New Bag$$ - Provider: Nikia Vines RN) sodium chloride 0.9% IV solution 75 mL (COMPLETED) 75 mL, Intravenous, ONCE, 1 dose, On [place] 06/02/21 at 1230, Radiology Procedure 1218 ($$New Bag$$ - Provider: Kleber Bermudez)1358 (Stopped - Provider: Nora Dominguez RN) Continuous Medication Order 06/01/2021 06/02/2021 06/03/2021 sodium chloride 0.9% IV solution Intravenous, at 125 mL/hr, CONTINUOUS, Starting on Thu06/02/21 at 1100, Until Thu06/03/21 at 1441 1054 ($$New Bag$$ - Provider: Adina Fernandez RN)2000 (Rate/Dose Verify - Provider: Scottie Cloud RN)2148 ($$New Bag$$ - Provider: Scottie Cloud RN)2200 (Rate/Dose Verify - Provider: Scottie Cloud RN) 0029 (Rate/Dose Verify - Provider: Scottie Cloud RN)0200 (Rate/Dose Verify - Provider: Scottie Cloud RN)0400 (Rate/Dose Verify - Provider: Scottie Cloud RN)0514 ($$New Bag$$ - Provider: Scottie Cloud RN) PRN Medication Order 06/01/2021 06/02/2021 06/03/2021 acetaminophen (TYLENOL) tablet 325-650 mg 325-650 mg, Oral, EVERY 4 HOURS NEEDED, Starting on Thu06/02/21 at 1658, Until Thu06/03/21 at 1441, Mild Pain, Maximum dose of acetaminophen is 4000 mg from all sources in 24 hours. labetalol (NORMODYNE) injection 20 mg 20 mg, Intravenous, EVERY 4 HOURS NEEDED, Starting on Thu06/02/21 at 1658, Until Thu06/03/21 at 1441, systolic blood pressure greater than 160, Administration duration: up to 20 mg over 2 minutes. ondansetron 4mg/2ml (ZOFRAN) injection 4 mg 4 mg, Intravenous, EVERY 4 HOURS NEEDED, Starting on Thu06/02/21 at 1658, Until Thu06/03/21 at 1441, Nausea / Vomiting potassium phosphates 30 mmol in sodium chloride 0.9%, with overfill 535 mL (total volume) IVPB 30 mmol, Intravenous, Administer over 6 Hours, NEEDED, Starting on Thu06/02/21 at 1658, Until Thu06/03/21 at 1441, Other, If phospate <2.5, give 30mmol, Extravasation Risk Linked Groups Order Group 1: potassium chloride (K-DUR) tablet ER 40 mEqJump to med 40 mEq, Oral, DAILY, First dose on Thu06/03/21 at 0600, Until Discontinued
Give if potassium is 3.1 to 3.4 on morning labs and patient is able to tolerate oral medications Swallow tablets whole; do not crush, chew, or suck on tablet. Tablet may also be broken in half and each half swallowed separately.
Or potassium chloride 40 mEq in 0.9% sodium chloride 500 ml IVPBJump to med 40 mEq, Intravenous, at 125 mL/hr, Administer over 4 Hours, DAILY, First dose on Thu06/03/21 at 0600, Until Discontinued
Give if potassium is less than 3.1 on morning labs OR if potassium is 3.1 to 3.4 on morning labs and patient is UNABLE to tolerate oral medications
Scheduled Medication Order 07/01/2021 07/02/2021 07/03/2021 cholestyramine (QUESTRAN) packet 2 g 2 g (0.5 packet), Oral, DAILY, First dose (after last modification) on Thu06/25/21 at 0900 0610 (Given - Provider: Sandra Nguyen RN) 0650 (Given - Provider: Adry Rao RN) 0530 (Given - Provider: Sandra Nguyen RN) collagenase ointment Topical, DAILY, First dose on Thu06/21/21 at 1045, Apply to back wound 1400 (Given - Provider: Kellie Kearns RN) 0951 (Given - Provider: Nargis Bhat RN) 0951 (Given - Provider: Nargis Bhat RN) enoxaparin (LOVENOX) injection 40 mg 40 mg, Subcutaneous, 2 TIMES DAILY, First dose (after last modification) on Thu06/03/21 at 2100 1145 (Given - Provider: Kellie Kearns RN)2109 (Given - Provider: Adry Rao RN) 0948 (Given - Provider: Nargis Bhat RN)2036 (Given - Provider: Sandra Nguyen RN) 0827 (Given - Provider: Nargis Bhat RN)2100 (Due) ferrous sulfate (IRON 325) tablet 325 mg 325 mg, Oral, EVERY OTHER DAY, First dose on Thu06/29/21 at 1100 1144 (Given - Provider: Kellie Kearns RN) 0827 (Given - Provider: Nargis Bhat RN) fluticasone (FLONASE) 50 MCG/ACT nasal spray 2 spray 2 spray, Each Nostril, 2 TIMES DAILY, First dose (after last modification) on Thu06/27/21 at 1045 1146 (Given - Provider: Kellie Kearns RN)2128 (Given - Provider: Adry Rao RN) 0948 (Given - Provider: Nargis Bhat RN)204 (Given - Provider: Sandra Nguyen RN) 0827 (Given - Provider: Nargis Bhat RN)2100 (Due) gabapentin (NEURONTIN) capsule 300 mg 300 mg, Oral, DAILY, First dose (after last modification) on Thu06/27/21 at 0900 1145 (Given - Provider: Kellie Kearns RN) 0949 (Given - Provider: Nargis Bhat RN) 0827 (Given - Provider: Nargis Bhat RN) guaiFENesin (MUCINEX) extended release tablet 600 mg 600 mg, Oral, 2 TIMES DAILY, First dose on Thu06/25/21 at 1145, Do not crush or break. 1145 (Given - Provider: Kellie Kearns RN)2110 (Given - Provider: Adry Rao RN) 0949 (Given - Provider: Nargis Bhat RN)204 (Given - Provider: Sandra Nguyen RN) 0826 (Given - Provider: Nargis Bhat RN)2100 (Due) heparin flush 100 UNIT/ML injection 250 Units 250 Units, Intravenous, EVERY 12 HOURS SCHEDULED (2 times per day), First dose on Thu06/26/21 at 1100, Flush each lumen of PICC not connected to a continuous infusion. 0800 (Not Given - Provider: Kellie Kearns RN - Reason: Other)2109 (Given - Provider: Adry Rao RN) 0950 (Given - Provider: Nargis Bhat RN)204 (Given - Provider: Sandra Nguyen RN) 0829 (Given - Provider: Nargis Bhat RN)2100 (Due) heparin flush 100 UNIT/ML injection 250 Units 250 Units, Intracatheter, EVERY 12 HOURS, First dose on Thu06/27/21 at 1200, Each lumen. Do NOT administer to lumens with continuous fluids currently infusing. Line Care. Use 10 mL or larger syringe. 0042 (Given - Provider: Sandra Nguyen RN)1200 (Not Given - Provider: Kellie Kearns RN - Reason: Other) 0218 (Not Given - Provider: Adry Rao RN - Reason: Other - Comment: aready flushed)1251 (Given - Provider: Nargis Bhat RN) 0000 (Given - Provider: Sandra Nguyen RN)1231 (Not Given - Provider: Nargis Bhat RN - Reason: Other) ipratropium-albuterol (DUONEB) nebulizer solution 1 ampule 1 ampule, Inhalation, 2 TIMES DAILY, First dose (after last modification) on Thu06/29/21 at 0900 1051 (Given - Provider: Vernon Gaspar RCP)1633 (Given - Provider: Vernon Gaspar RCP) 1029 (Given - Provider: Carrie Cardenas)1706 (Given - Provider: Carrie Cardenas) 0844 (Given - Provider: Katherine Jha RCP)1600 (Due) melatonin tablet 3 mg 3 mg, Oral, NIGHTLY, First dose (after last modification) on Carla 06/20/21 at 2100 2109 (Given - Provider: Adry Rao RN) 2040 (Given - Provider: Sandra Nguyen RN) 2099 (Due) miconazole (MICOTIN) 2 % powder Topical, 2 TIMES DAILY, First dose on Thu06/17/21 at 0900, Apply to skin folds. 899 (Due)2110 (Given - Provider: Adry Rao RN) 09 (Given - Provider: Nargis Bhat RN)2041 (Given - Provider: Sandra Nguyen RN) 08 (Given - Provider: Nargis Bhat RN)2099 (Due) mineral oil-hydrophilic petrolatum (AQUAPHOR) ointment Topical, 2 TIMES DAILY, First dose on Thu06/21/21 at 1045, Apply to bilateral LE and feet 899 (Due)2110 (Given - Provider: Adry Rao RN) 0952 (Given - Provider: Nargis Bhat RN)2041 (Given - Provider: Sandra Nguyen RN) 08 (Given - Provider: Nargis Bhat RN)2099 (Due) mometasone-formoterol (DULERA) 200-5 MCG/ACT inhaler 2 puff 2 puff, Inhalation, 2 TIMES DAILY, First dose on Thu06/22/21 at 0830, Rinse mouth out with water (without swallowing) after every dose. 1146 (Given - Provider: Kellie Kearns RN)2111 (Given - Provider: Adry Rao RN) 0949 (Given - Provider: Nargis Bhat RN)2041 (Given - Provider: Sandra Nguyen RN) 08 (Given - Provider: Nargis Bhat RN)1999 (Due) pantoprazole (PROTONIX) tablet 40 mg 40 mg, Oral, DAILY BEFORE BREAKFAST, First dose (after last modification) on Thu06/23/21 at 0700, Do not crush or break. 0609 (Given - Provider: Sandra Nguyen RN) 0648 (Given - Provider: Adry Rao RN) 0530 (Given - Provider: Sandra Nguyen RN) polyethylene glycol (GLYCOLAX) packet 17 g 17 g, Oral, 2 TIMES DAILY, First dose on Thu06/18/21 at 0900, Hold for > 1-2 BMs per day 2108 (Given - Provider: Adry Rao RN) 0953 (Given - Provider: Nargis Bhat RN)204 (Given - Provider: Sandra Nguyen RN) 0827 (Given - Provider: Nargis Bhat, MORIS)0830 (Not Given - Provider: Nargis Bhat RN - Reason: Other)2100 (Due) sennosides-docusate sodium (SENOKOT-S) 8.6-50 MG tablet 2 tablet 2 tablet, Oral, 2 TIMES DAILY, First dose (after last modification) on Thu06/18/21 at 0900, Hold for > 1-2 BMs per day 1144 (Given - Provider: Kellie Kearns RN)2110 (Given - Provider: Adry Rao RN) 0953 (Given - Provider: Nargis Bhat, MORIS)204 (Given - Provider: Sandra Nguyen RN) 0828 (Given - Provider: Nargis Bhat, MORIS)2100 (Due) sodium chloride (Inhalant) 3 % nebulizer solution 4 mL 4 mL, Nebulization, 3 TIMES DAILY, First dose on Thu06/25/21 at 1400 1056 (Given - Provider: Vernon Gaspar RCP)1319 (Given - Provider: Vernon Gaspar RCP)1640 (Given - Provider: Vernon Gaspar RCP) 1035 (Given - Provider: Carrie Cardenas)1435 (Given - Provider: Carrie Cardenas)2329 (Given - Provider: Lizzeth Bower RCP) 0844 (Given - Provider: Katherine Jha RCP)1400 (Due)2100 (Due) sodium chloride flush 0.9 % injection 10 mL 10 mL, Intracatheter, EVERY 12 HOURS, First dose on Carla 06/27/21 at 1200, Administer to each lumen, regardless of whether or not fluids are infusing. Line Care. Use 10 mL or larger syringe. 0043 (Given - Provider: Sandra Nguyen RN)1200 (Due) 0218 (Not Given - Provider: Adry Rao RN - Reason: Other - Comment: already flushed)1250 (Not Given - Provider: Nargis Bhat RN - Reason: Other) 0107 (Given - Provider: Sandra Nguyen RN)1324 (Not Given - Provider: Nargis Bhat RN - Reason: Other) sodium hypochlorite (DAKINS) 0.125 % external solution Irrigation, DAILY, First dose on Thu06/21/21 at 1045 0953 (Given - Provider: Nargis Bhat RN) 0831 (Given - Provider: Nargis Bhat RN)0900 (Not Given - Provider: Nargis Bhat RN - Reason: Other) stomahesive in petrolatum (ET MIX) Topical, 2 TIMES DAILY, First dose on Thu06/21/21 at 1045 0900 (Due)2116 (Given - Provider: Adry Rao RN) 0953 (Given - Provider: Nargis Bhat RN)2041 (Given - Provider: Sandra Nguyen RN) 0830 (Given - Provider: Nargis Bhat RN)2100 (Due) Vitamin D (CHOLECALCIFEROL) tablet 2,000 Units 2,000 Units, Oral, DAILY, First dose (after last modification) on Thu07/01/21 at 0900, Maintenance Dose. 1145 (Given - Provider: Kellie Kearns RN) 0949 (Given - Provider: Nargis Bhat RN) 0827 (Given - Provider: Nargis Bhat RN) PRN Medication Order 07/01/2021 07/02/2021 07/03/2021 0.9 % sodium chloride infusion 25 mL, Intravenous, at 100 mL/hr, PRN, If patient receiving piggyback infusions without ordered maintenance IV fluids or with frequent/long duration piggyback infusions, Starting on Thu06/03/21 at 1623, Administer at the same rate as the piggyback being infused. acetaminophen (TYLENOL) suppository 650 mg(Linked Group 1) 650 mg, Rectal, EVERY 6 HOURS PRN, Pain Mild (1-3), Fever, For temp greater than 100.4 F (38 C), Starting on Thu06/03/21 at 1623, Administer if oral route cannot be used. acetaminophen (TYLENOL) tablet 650 mg(Linked Group 1) 650 mg, Oral, EVERY 6 HOURS PRN, Pain Mild (1-3), Fever, For temp greater than 100.4 F (38 C), Starting on Thu06/03/21 at 1623, Maximum dose of acetaminophen is 4000 mg from all sources in 24 hours. benzocaine (ORAJEL) 20 % mucosal gel Mouth/Throat, 2 TIMES DAILY PRN, Pain, Starting on Thu06/20/21 at 1045 bisacodyl (DULCOLAX) suppository 10 mg 10 mg, Rectal, DAILY PRN, Constipation, Starting on Thu06/20/21 at 1431 dextrose 5 % solution 100 mL/hr, Intravenous, at 100 mL/hr, PRN, Low blood sugar, Starting on Thu06/04/21 at 1133, Start infusion following administration of dextrose 50% or glucagon. dextrose 50 % IV solution 12.5 g, Intravenous, PRN, Low blood sugar, Blood glucose less than 70 mg/dL and patient NOT ALERT or NPO., Starting on Thu06/04/21 at 1133, If patient does not respond within 5 minutes, repeat dose x1. Start D5W at 100 mL/hour until ordering provider can be reached. Repeat blood glucose in 15 minutes. If blood glucose is less than 70 mg/dL, repeat treatment and recheck blood glucose in 15 minutes x2. If using Glucostabilizer, dose as instructed per system. glucagon (rDNA) injection 1 mg 1 mg, Intramuscular, PRN, Low blood sugar, Blood glucose less than 70 mg/dL and patient NOT ALERT or NPO and does not have IV access., Starting on Thu06/04/21 at 1133, After administration, attempt intravenous access and start D5W at 100 mL/hr. Repeat blood glucose in 15 minutes x2 and notify provider. glucose (GLUTOSE) 40 % oral gel 15 g 15 g, Oral, PRN, Low blood sugar, Starting on Thu06/04/21 at 1133, If blood glucose less than 50 mg/dL and patient ALERT and TOLERATING PO, give 2 tubes glucose gel. If blood glucose less than 70 mg/dL and patient ALERT and TOLERATING PO, give 1 tube glucose gel. Repeat blood glucose in 15 minutes. If blood glucose is less than 70 mg/dL, repeat treatment and recheck blood glucose in 15 minutes x2 and notify provider. heparin flush 100 UNIT/ML injection 250 Units 250 Units, Intracatheter, PRN, Line Care, after blood draws and after infusion, Starting on Thu06/27/21 at 1132, Do NOT administer to lumens with continuous fluids currently infusing. Line Care. Use 10 mL or larger syringe. hydrocortisone-aloe 1 % cream Topical, 2 TIMES DAILY PRN, lower extremity itching, Starting on Thu06/03/21 at 1811, Apply to lower extremities. Substituted for Hydrocortisone topical. hydrOXYzine (VISTARIL) capsule 25 mg 25 mg, Oral, 3 TIMES DAILY PRN, Anxiety, Starting on Thu06/24/21 at 1527 ipratropium-albuterol (DUONEB) nebulizer solution 1 ampule 1 ampule, Inhalation, 4 TIMES DAILY PRN, Shortness of Breath, Starting on Thu06/21/21 at 1730 1313 (Given - Provider: Vernon Gaspar RCP) magnesium hydroxide (MILK OF MAGNESIA) 400 MG/5ML suspension 30 mL 30 mL, Oral, DAILY PRN, Constipation, Starting on Thu06/03/21 at 1623, First line therapy for constipation. ondansetron (ZOFRAN) injection 4 mg(Linked Group 2) 4 mg, Intravenous, EVERY 6 HOURS PRN, Nausea, Vomiting, Starting on Thu06/03/21 at 1623, Administer if oral route cannot be used. ondansetron (ZOFRAN-ODT) disintegrating tablet 4 mg(Linked Group 2) 4 mg, Oral, EVERY 8 HOURS PRN, Nausea, Vomiting, Starting on Thu06/03/21 at 1623 phenol 1.4 % mouth spray 1 spray 1 spray, Mouth/Throat, EVERY 2 HOURS PRN, Sore Throat, Starting on Thu06/25/21 at 1133 sodium chloride (Inhalant) 3 % nebulizer solution 4 mL 4 mL, Nebulization, PRN, Cough, Starting on Thu06/25/21 at 1129 sodium chloride (OCEAN, BABY AYR) 0.65 % nasal spray 1 spray 1 spray, Each Nostril, PRN, Congestion, for dry nose, Starting on Thu06/26/21 at 2037 sodium chloride flush 0.9 % injection 10 mL 10 mL, Intravenous, PRN, Line Care, Starting on Thu06/26/21 at 1032, Flush each lumen of PICC. sodium chloride flush 0.9 % injection 10 mL 10 mL, Intracatheter, PRN, Line Care, before blood draws, before and after infusion or medication administration, Starting on Thu06/27/21 at 1132, Use 10 mL or larger syringe. stomahesive in petrolatum (ET MIX) Topical, PRN, Dry Skin, Starting on Thu06/20/21 at 1830, Apply to coccyx/ buttocks traZODone (DESYREL) tablet 50 mg 50 mg, Oral, NIGHTLY PRN, Sleep, Starting on Thu06/20/21 at 2100 Linked Groups Order Group 1: acetaminophen (TYLENOL) tablet 650 mgJump to med 650 mg, Oral, EVERY 6 HOURS PRN, Pain Mild (1-3), Fever, For temp greater than 100.4 F (38 C), Starting on Thu06/03/21 at 1623
Maximum dose of acetaminophen is 4000 mg from all sources in 24 hours.
Or acetaminophen (TYLENOL) suppository 650 mgJump to med 650 mg, Rectal, EVERY 6 HOURS PRN, Pain Mild (1-3), Fever, For temp greater than 100.4 F (38 C), Starting on Thu06/03/21 at 1623
Administer if oral route cannot be used.
Group 2: ondansetron (ZOFRAN-ODT) disintegrating tablet 4 mgJump to med 4 mg, Oral, EVERY 8 HOURS PRN, Nausea, Vomiting, Starting on Thu06/03/21 at 1623 Or ondansetron (ZOFRAN) injection 4 mgJump to med 4 mg, Intravenous, EVERY 6 HOURS PRN, Nausea, Vomiting, Starting on Thu06/03/21 at 1623
Administer if oral route cannot be used.
Ordered Prescriptions (unrec ognized section and content) Prescription Sig Dispensed Refills Start Date End Da te benzocaine (ORAJEL) 20 % GEL mucosal gel Take 1 spray by mouth 2 times daily as needed for Pain 0 07/03/2021 Vitamin D (CHOLECALCIFEROL) 50 MCG (1999) TABS tablet Take 1 tablet by mouth daily 60 tablet 0 07/04/2021 pantoprazole (PROTONIX) 40 MG tablet Take 1 tablet by mouth every morning (before breakfast) 30 tablet 3 07/04/2021 phenol 1.4 % LIQD mouth spray Take 1 spray by mouth every 2 hours as needed for Sore Throat 1 mL 0 07/03/2021 melatonin 3 MG TABS tablet Take 1 tablet by mouth nightly 3 07/03/2021 sennosides-docusate sodium (SENOKOT-S) 8.6-50 MG tablet Take 2 tablets by mouth 2 times daily 0 07/03/2021 polyethylene glycol (GLYCOLAX) 17 g packet Take 17 g by mouth 2 times daily 527 g 1 07/03/2021 08/02/2021 bisacodyl (DULCOLAX) [address] 1 suppository rectally daily as needed for Constipation 0 07/03/2021 08/02/2021 ferrous sulfate (IRON 325) 325 (65 Fe) MG tablet Take 1 tablet by mouth every other day 30 tablet 3 07/05/2021 mineral oil-hydrophilic petrolatum (AQUAPHOR) ointment Apply topically as needed. 0 07/03/2021 miconazole (MICOTIN) 2 % powder Apply topically 2 times daily. 45 g 1 07/03/2021 hydrocortisone-aloe 1 % CREA cream Apply topically 2 times daily as needed (lower extremity itching) 0 07/03/2021 collagenase 250 UNIT/GM ointment Apply topically daily. 0 07/04/2021 07/13/2021 sodium chloride (OCEAN, BABY AYR) 0.65 % nasal spray 1 spray by Nasal route as needed for Congestion (for dry nose) 0 07/03/2021 fluticasone (FLONASE) 50 MCG/ACT nasal spray 2 sprays by Each Nostril route 2 times daily 1 Bottle 3 07/03/2021 guaiFENesin (MUCINEX) 600 MG extended release tablet Take 1 tablet by mouth 2 times daily 0 07/03/2021 sodium chloride, Inhalant, 3 % nebulizer solution Take 4 mLs by nebulization 3 times daily 0 07/03/2021 cholestyramine (QUESTRAN) 4 g packet Take 0.5 packets by mouth daily 90 packet 3 07/04/2021 traZODone (DESYREL) 50 MG tablet Take 1 tablet by mouth nightly as needed for Sleep 0 07/03/2021 gabapentin (NEURONTIN) 300 MG capsule Take 1 capsule by mouth daily for 30 days. 90 capsule 3 07/04/2021 08/03/2021 enoxaparin (LOVENOX) 40 MG/0.4ML injection Inject 0.4 mLs into the skin 2 times daily 3 07/03/2021 mometasone-formoterol (DULERA) 200-5 MCG/ACT inhaler Inhale 2 puffs into the lungs 2 times daily 0 07/03/2021 ipratropium-albuterol (DUONEB) 0.5-2.5 (3) MG/3ML SOLN nebulizer solution Inhale 3 mLs into the lungs 4 times daily as needed for Shortness of Breath 360 mL 0 07/03/2021 albuterol sulfate HFA 108 (90 Base) MCG/ACT inhaler Inhale 2 puffs into the lungs every 6 hours as needed for Wheezing 1 Inhaler 3 07/03/2021 hydrOXYzine (VISTARIL) 25 MG capsule Take 1 capsule by mouth 3 times daily as needed for Anxiety 0 07/03/2021 07/17/2021 aspirin 81 MG chewable tablet Take 1 tablet by mouth daily 30 tablet 3 07/03/2021 acetaminophen (TYLENOL) 500 MG tablet Take 2 tablets by mouth every 6 hours as needed for Pain 120 tablet 3 07/03/2021 Care Teams (unrecognized sec tion and content) Team Status: Active Member Role Status Dates VJ Velasquez Primary Care Provider Active Team Status: Active Member Role Status Dates VJ Velasquez Primary Care Provider Active Dr. Antoni Osman MD Attending Provider Active Team Status: Active Member Role Status Dates VJ Velasquez Primary Care Provider Active Dr. Arthur Lara MD Emergency Provider Active Dr. Adrianna Mejia DO Admit Provider, Attending Provide r, Other Provider Active Team Status: Inactive Member Role Status Dates Alondra Piedraer PA, PA Primary Care Provider Active Dr. Kolby Guan DO Attending Provider, Emergency Provide r Active Team Status: Active Member Role Status Dates Alondra Crews PA, PA Primary Care Provider Active Dr. Arthur Lara MD Emergency Provider Active Dr. Adrianna Mejia DO Admit Provider, Attending Provide r Active Food Vendor Relationship Specialty Start Date End Date CrewsAlondra PA-C [address] [facility] [place] [address] PCP - General Physician Signal Constructor 04/05/21 Team Status: Inactive Member Role Status Dates Alondra Crews PA, PA Primary Care Provider Active Dr. Kolby Guan DO Emergency Provider Active Team Status: Active Member Role Status Dates Alondra Crews PA, PA Primary Care Provider Active Dr. Antoni Osman MD Attending Provider Active Dr. Kolby Guan DO Referring Provider Active Team Status: Active Member Role Status Dates Alondra Crews PA, PA Primary Care Provider Active Dr. Arthur Lara MD Emergency Provider Active Dr. Adrianna Mejia DO Admit Provider, Other Provider Ac tive Dr. Betty Calvin MD Attending Provider, Other Provid er Active Team Status: Active Member Role Status Dates Alondra Crews PA, PA Primary Care Provider Active Dr. Arthur Lara MD Emergency Provider Active Dr. Adrianna Mejia DO Admit Provider, Other Provider Ac tive Dr. Betty Calvin MD Attending Provider, Other Provid er Active Dr. Wander Garcia MD Other Provider Active Team Status: Active Member Role Status Dates Alondra Crews PA, PA Primary Care Provider Active Dr. Humberto Huggins MD Attending Provider Activ e Team Status: Inactive Member Role Status Dates Alondra Crews PA, PA Primary Care Provider Active Dr. Arthur Lara MD Emergency Provider Active Dr. Adrianna Mejia DO Admit Provider, Other Provider Ac tive Dr. Betty Calvin MD Attending Provider Active Dr. Wander Garcia MD Other Provider Active Team Status: Active Member Role Status Dates Alondra Crews PA, PA Primary Care Provider Active Dr. Humberto Huggins MD Attending Provider Activ e Dr. eBtty Calvin MD Referring Provider Active Team Status: Active Member Role Status Dates Alondra Crews PA, PA Primary Care Provider Active Dr. Mandy Arce MD Emergency Provider Active Dr. Arthur Thompson MD Admit Provider, At tending Provider, Referring Provider Active Team Status: Active Member Role Status Dates VJ Velasquez Primary Care Provider Active Dr. Mandy Arce MD Emergency Provider Active Dr. Arthur Thompson MD Admit Provider, Re ferring Provider, Other Provider Active Dr. Calderon Ware MD Attending Provider, Other Provid er Active Dr. Wander Garcia MD Other Provider Active Team Status: Inactive Member Role Status Dates VJ Velasquez Primary Care Provider Active Dr. Mandy Arce MD Emergency Provider Active Dr. Arthur Thompson MD Admit Provider, Re ferring Provider, Other Provider Active Dr. Calderon Ware MD Attending Provider Active Dr. Wander Garcia MD Other Provider Active Food Vendor Relationship Specialty Start Date End Date MarsAlondra PA-C [address] [place] [address] [place] [address] PCP - General Physician Signal Constructor 09/04/23 Team Status: Active Member Role Status Dates Alondra ZABALA PA Primary Care Provider Active Dr. Gian Villanueva DO Emergency Provider Active Dr. Calderon Ojeda DO Admit Provider, Attending Pr ovid Active Team Status: Active Member Role Status Dates Alondra ZABALA PA Primary Care Provider Active Dr. Gian Villanueva DO Emergency Provider Active Dr. Calderon Ojeda DO Admit Provider, Other Provid er Active Dr. Rubin Hadley MD Attending Provider, Other Provider Active Team Status: Active Member Role Status Dates Alondra ZABALA PA Primary Care Provider Active Dr. Gian Villanueva DO Emergency Provider Active Dr. Calderon Ojeda DO Admit Provider, Other Provid er Active Dr. Rubin Hadley MD Attending Provider, Other Provider Active Dr. Wander Garcia MD Other Provider Active Team Status: Inactive Member Role Status Dates Alondra ZABALA PA Primary Care Provider Active Dr. Gian Villanueva DO Emergency Provider Active Dr. Calderon Ojeda DO Admit Provider, Other Provid er Active Dr. Rubin Hadley MD Attending Provider Active Dr. 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 This clinical summary was aggregated from multiple sources. Caution should be exercised in using it in the provision of clinical care. This summary normalizes information from multiple sources, and as a consequence, information in this document may materially change the coding, format and clinical context of patient data. In addition, data may be omitted in some cases. CLINICAL DECISIONS SHOULD BE BASED ON THE PRIMARY CLINICAL RECORDS. [employer]. provides no warranty or guarantee of the accuracy or completeness of information in this document.
[2025-06-11 01:15] LABS: AST(SGOT) 30 U/L (<=31); Alanine Aminotransfer ALT/SGPT 24 U/L (<=34); Albumin, Serum 4.0 g/dL (3.5-5.0); Alkaline Phosphatase 88 U/L (35-104); Anion Gap 12 (5-15); BUN 19 mg/dL (4-19); BUN/Creat Ratio 20.2 RATIO (10-20); Calcium,Total 9.4 mg/dL (7.6-11.0); Carbon Dioxide 26.1 mmol/L (21.0-32.0); Chloride 96 mmol/L (98-108); Estimated Creatinine Clearance 136.23 ml/min (50-250); Globulin 3.3 g/dL (2.2-4.2); Glucose 130 mg/dL (70-99); Potassium 4.6 mmol/L (3.3-5.1)
[2025-06-11] MEDS: Vancomycin HCl 2,000 MG in 0.9% Normal Saline (500mL Bag) 500 ML 250 MG IV (01:17)
[2025-06-11 01:23] LABS: Pro- Brain NATRIURETIC PEPTIDE 284 pg/mL (<=900); Troponin T High Sensitivity 12 ng/L (<=14)
[2025-06-11 02:42] LABS: Troponin T High Sens 2 HR 14 ng/L (<=14)
--- NOTE | 2025-06-11 02:49 | HP.PCM.HOS_ITS ---
HPI - General General Date of Admission: 06/11/25 Date of Service: 06/11/25 Chief Complaint: Concern for recurrent lower extremity cellulitis HPI Narrative PHILLIP GARCIA, is a 55 F who presented to [facility] ED on 06/11/2025 with concern for recurrent lower extremity cellulitis. Medical history is significant for super morbid obesity with BMI 91, chronic lower extremity lymphedema and recurrent bilateral lower extremity cellulitis. She was last hospitalized here in April 2024 for right leg cellulitis. CT scan then showed diffuse edema in the right posterior thigh. ID followed during the hospitalization. It appears she was treated with vancomycin and cefazolin for nonpurulent cellulitis while inpatient and then discharged home on a 10-day course of p.o. doxycycline and Keflex. Patient lives at home with her . States she has been doing fairly well recently. However, yesterday evening she began to have worsening lower extremity pain with redness and some associated shortness of breath. She notes that prior episodes have come on quickly like this, so she came in for further evaluation. On arrival to the ED she was hypertensive to the 170 systolic, sinus tachycardia to the 100s and febrile to 102.9 F. She was satting in the mid 90s on room air at rest. Labs notable for WBC count 16 with neutrophil predominance, lactate 2.4, creatinine 0.93 (baseline 0.7-0.8). Chest x-ray showed vascular indistinctness concerning for edema, was otherwise unremarkable. Patient was given doses of IV vancomycin and Zosyn as well as Tylenol. Fluid was held due to concern for pulmonary edema on chest x-ray. Hospitalist was then contacted for admission. I saw the patient at bedside in the ED, sister was present. Notably patient's sister is Maggie who is a case operator here. Patient was laying back comfortably in bed, conversing normally, in no acute distress. She did report some right lower extremity tenderness to palpation in the medial thigh. She otherwise felt somewhat cold and was asking for blankets. She denied any abdominal pain or discomfort. No other acute concerns currently. Will be admitted for further management. [facility] Medical History Hyperglycemia Failure of outpatient treatment Ascending aorta dilatation Abnormal echocardiogram IBS (irritable bowel syndrome) Depression Heel spur Osteoarthritis (arthritis due to wear and tear of joints) Asthma GERD without esophagitis Insomnia Anxiety Home Medications ?Medication ?Instructions ?Recorded ?Last Taken ?Type acetaminophen 500 mg capsule 1,000 mg PO Q6H PRN Pain 07/11/21 05/04/24 History ferrous sulfate 325 mg (65 mg 325 mg PO DAILY@1200 iro n #30 tabs 08/01/21 05/04/24 Rx iron) tablet (FeroSul) venlafaxine 75 mg capsule,extended 225 mg (3 x 75 mg) PO DAILY 09/03/21 05/04/24 Rx release 24 hr (Effexor XR) depression #90 caps lisinopril 10 mg tablet 10 mg PO DAILY blood pressur e 07/24/23 05/04/24 History nystatin 100,000 unit/gram topical 1 applic topical BI D yeast 07/31/23 05/04/24 Rx powder (Nyamyc) infection 30 days #60 grams cholecalciferol (vitamin D3) 1 tab PO DAILY supplement 04/04/24 05/04/24 History valacyclovir 1 gram tablet 2,000 mg PO BID PRN cold so re 04/07/24 Unknown History L.acidophil,salivari-Bifido 1 cap PO BID 10 days #20 c aps 05/09/24 Unknown Rx bifidum-Strep thermoph 175 mg capsule [id number]-vit C 1 tab PO DAILY 06/11/25 Unknown History albuterol sulfate 2.5 mg/3 mL 2.5 mg continuous nebuli zation Q4H 06/11/25 Unknown History (0.083 %) solution for nebulization PRN PRN dyspnea buspirone 5 mg tablet 5 mg PO BID 06/11/25 Unknown History calcium carbonate ([place] 600 mg PO TID PRN dysp epsia 06/11/25 Unknown History Heartburn Chew) cholestyramine (with sugar) 4 gram 2 - 4 ea PO DAILY 0 06/11/25 Unknown History oral powder multivitamin (Daily Multi-Vitamin 1 tab PO DAILY 06/11 Unknown History tablet) pantoprazole 20 mg tablet,delayed 20 mg PO DAILY 06/11 Unknown History release Allergy/AdvReac Type Severity Reaction Status Date / Time adhesive tape AdvReac Unknown Other Verified 04/04/24 19:07 Family History Mother Alzheimer's dementia Surgical History H/O foot surgery History of hip surgery History of cholecystectomy Social History household members: spouse housing: house number of children: 1 current occupational status: employed 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 For lunch she has a bowl of soup and crackers which she takes to work. Sometimes has pretzels for a snack. Eats lunch at 12:30- 1 and does not get home until 7 PM and then she is starved. Her sometimes cooks and it is usually not healthy and may include pizza, hot dogs, fast food. Does not plan meals and her hisband is not supportive of healthy eating. He is a little overweight and likes to eat junk. ROS Constitutional Constitutional: Reports fatigue; Denies chills, fever(s) or weakness Eyes Eyes: Denies change in vision Cardiovascular Cardiovascular: Denies chest pain Respiratory/Chest Respiratory/Chest: Reports shortness of breath at rest; Denies cough or wheezing Gastrointestinal Gastrointestinal: Denies abdominal pain Musculoskeletal Musculoskeletal: Reports other Details: Bilateral lower extremity pain with swelling ; Denies arthralgias or myalgias Vital Signs Vital Signs Vital Signs: 06/10/25 23:46 06/11/25 00:12 06/11/25 00:45 Temperature 102.9 F H Temperature Source Axillary Pulse Rate 107 H 91 Respiratory Rate 25 H 20 H Respiratory Effort Labored Respiratory Pattern Normal Blood Pressure 178/62 H Blood Pressure Mean 100 Pulse Ox 94 Oxygen Delivery Method Room Air 06/11/25 00:46 06/11/25 00:51 06/11/25 01:00 Temperature 101.2 F H 101.2 F H Temperature Source Oral Oral Pulse Rate 91 100 98 Respiratory Rate 16 20 H Respiratory Effort Respiratory Pattern Blood Pressure 138/76 H 130/70 H Blood Pressure Mean 96 90 Pulse Ox 96 95 Oxygen Delivery Method Room Air 06/11/25 02:22 06/11/25 02:24 Temperature 100.8 F H Temperature Source Oral Pulse Rate 94 Respiratory Rate 22 H Respiratory Effort Respiratory Pattern Blood Pressure 109/60 109/60 Blood Pressure Mean 76 76 Pulse Ox 96 Oxygen Delivery Method Room Air Weight Weight: 241.2 kg Body Mass Index (BMI) 91.2 Physical Exam Const alert, oriented x3 and no apparent distress Constitutional Narrative: Middle-aged female, super morbid obesity, mildly fatigued appearing but otherwise laying back comfortably in bed, conversing normally, in no acute distress. General Appearance: cooperative and comfortable HEENT normocephalic, head/scalp atraumatic, hearing grossly normal bilaterally and nasal mucous membranes and turbinates normal HEENT Narrative: Dry mucous membranes. Eyes PERRL, EOMs intact bilaterally and conjunctivae normal Neck full ROM Chest inspection of chest normal Resp Resp Narrative: Exam limited by body habitus. Diminished breath sounds bilaterally but no wheezing or crackles noted. Cardio no murmurs and peripheral pulses 2+ throughout Cardio Narrative: Tachycardic, regular rhythm. GI normal to inspection, nondistended, normoactive bowel sounds, soft to palpation, non-tender and non-distended Back/Spine normal ROM Extremity Extremity Narrative: Bilateral lower extremity lymphedema noted up to the thighs. Mild erythema noted especially in right leg in the medial thigh area with some tenderness to palpation. Psych mental status grossly normal Results Lab / Micro Data 06/11/25 00:05 06/11/25 00:05 Labs: Laboratory Results - last 24 hr 06/11/25 00:05: WBC 16.1 H, RBC 4.60, Hgb 12.6, Hct 39.1, MCV 85.0, MCH 27.4, MCHC 32.2, RDW Std Deviation 45.9 H, RDW Coeff of Rani 15.0 H, Plt Count 163, MPV 9.5, Immature Gran % (Auto) 1.300 H, Neut % (Auto) 90.9 H, Lymph % (Auto) 2.0 L, [place] % (Auto) 5.7, Eos % (Auto) 0.0, Baso % (Auto) 0.1, Absolute Neuts (auto) 14.6 H, Absolute Lymphs (auto) 0.32 L, Nucleated RBC % 0, PT 13.6, INR 1.0, APTT 29.1, Sodium 134, Potassium 4.6, Chloride 96 L, Carbon Dioxide 26.1, Anion Gap 12, BUN 19, Creatinine 0.93, Estim Creat Clear Calc 136.23, Est GFR (MDRD) Non- Af 71, BUN/Creatinine Ratio 20.2 H, Glucose 130 H, Lactic Acid 2.4 H*, Calcium 9.4, Total Bilirubin 0.52, AST 30, ALT 24, Alkaline Phosphatase 88, Troponin T High Sens 12, NT pro BNP II 284, Total Protein 7.3, Albumin 4.0, Globulin 3.3, Albumin/Globulin Ratio 1.2 06/11/25 00:30: Urine Color Straw, Urine Clarity Clear, Urine pH 7.0, Ur Specific [place] 1.010, Urine Protein Negative, Urine Glucose (UA) Normal, Urine Ketones Negative, Urine Occult Blood 10 H, Urine Nitrite Negative, Urine Bilirubin Negative, Urine Urobilinogen Normal, Ur Leukocyte Esterase Negative, Urine RBC 5-10 SEEN, Urine WBC 0 SEEN, Ur Squamous Epith Cells 5-10 SEEN, Urine Bacteria 0 SEEN, Urine Mucus 0 SEEN 06/11/25 02:13: Troponin T Hi Sens 2 Hr 14 Micro: Microbiology 06/11/25 00:18 Mucosa - Nose SARS-CoV-2, Influenza & RSV (PCR) - Final Imaging Radiology Impression Chest X-Ray 06/10/25 23:59 IMPRESSION: As above. Reading Location: [id number] Assessment & Plan Assessment/Plan (1) Lower extremity cellulitis: PLAN: Plan Patient is a 55-year-old female who presented [facility] ED on 06/11/2025 with concern for recurrent lower extremity cellulitis. 1. Recurrent lower extremity cellulitis with chronic lower extremity lymphedema ? Admit under inpatient status to [facility]. Wound care consulted. PT/OT/case management consulted. Last hospitalization for similar presentation was in April 2024. Met SIRS criteria on admit with leukocytosis, fevers, and tachycardia but otherwise did not meet sepsis criteria. Will treat with IV vancomycin and Zosyn for now. Notably ID followed during April hospitalization last year and it appears she was treated with vancomycin and cefazolin while inpatient and then discharged on doxycycline and Keflex. Can consider ID consult as needed. Had CT imaging done of right leg during hospitalization last year that showed diffuse soft tissue swelling but no need for surgical intervention. Will hold on any imaging for now. 2. Mild creatinine elevation with elevated lactic acid ? Creatinine 0.93 and lactic acid 2.4 on admit. Baseline creatinine is 0.7-0.8. Presume due to mild volume depletion in setting of cellulitis as above. ED physician held fluids due to concern for vascular congestion on chest x-ray. However patient is stable on room air at rest and appears dehydrated. Will give 1 L of IV fluids over several hours. Follow-up a.m. BMP and monitor urine output. Further treatment as above. Chronic medical conditions: ? Class III obesity with MIGUEL and obesity hypoventilation syndrome: BMI 91 on admit. Complicates hospital course, care and prognosis. Weight loss recommended. ? Hypertension: Will hold home lisinopril for now, restart as needed. ? GERD: Continue PPI. ? Anxiety/depression: Continue home BuSpar and venlafaxine. ? Asthma: Stable on room air at rest, not in acute exacerbation. Continue home short acting dilators as needed. ? Mild iron deficiency anemia: Hemoglobin 12.6 on admit, stable at baseline. Continue home iron supplement. ? History of stage III decubitus ulcer DVT prophylaxis: Lovenox twice daily CODE STATUS: Full code, verified Expected disposition: TBD Total clinical time spent by myself addressing the patient's medical issues, reviewing all the data, and collaborating with patient's care team: 75 minutes. Charges/Coding Visit Charges Inpatient E&M: 69632 Init Hosp L3
--- OUTSIDE RECORDS SUMMARY | 2025-06-11 04:10 | XMS RPT_ITS | CCD ---
Author Organization [facility] Care Team Providers Care Software Maintenance Engineer Name Role Phone Unavailable Unavailable Unavailable ConnGenetFanta [...] Other Provider Dr. Wander Garcia Other Provider [phone] Dr. Humberto Huggins Attending Provider Dr. Betty Calvin Referring Provider Dr. Mandy Arce Emergency Provider [phone] Arthur Thompson Admit Provider Dr. Arthur Thompson Referring Provider Dr. Arthur Thompson Other Provider Dr. Calderon Ware Attending Provider Unavailable Dr. Calderon Ware Other Provider Unavailable Mars PA-C, Alondra A Primary Care Provider [phone] HELDER TAVERA Attending Unavailable CRWES, ALONDRA Referring Unavailable CREWS, ALONDRA Primary Care Unavailable Khaitan, Dr. Null Attending Unavailable Khaitan, Dr. Null Referring Unavailable UNKNOWN, PCP Primary Care Unavailable Khaitan, Dr. Null Attending Unavailable Khaitan, Dr. Null Referring Unavailable UNKNOWN, PCP Primary Care Unavailable Crews PA-C, Alondra J Unavailable [phone] Crews PA-C, Alondra J Unavailable Infectious Disease Provider Unavailable Unav ailable Cardiology Provider Unavailable Unavailable Minerva MANAGER OF FINANCE, Nora Unavailable Unavaila ble Rodney MANAGER OF FINANCE, Ashley Unavailable Unavailable Eloy MANAGER OF FINANCE, Carlo Unavailable Unavailable Frank MANAGER OF FINANCE, Jazlyn M Unavailable Unavailab le Brian MA, Ashley Unavailable Unavailable Zaugg MANAGER OF FINANCE, Cadence Unavailable Unavailable Unavailable Unavailable Suarez MANAGER OF FINANCE, Ceci Unavailable Unavailabl e Mars ZABALA PA Alondra Primary Care Provider [phone] Dr. Gian Villanueva Emergency Provider Dr. Calderon Ojeda Admit Provider Unavailabl e Dr. Calderon Ojeda Other Provider Unavailanna e Dr. Rubin Hadley Attending Provider Dr. Rubin Hadley Other Provider Dr. Antoni Osman Attending Provider [phone] Wander Garcia Other Provider [phone] Dermatology Provider Unavailable Unavailable Rheumatolgy Provider Unavailable [...] MCLAIN, Alondra J Primary Care Provider [phone] ALONDRA CREWS Admitting Unavailable YAMILE SMALLWOOD Attending Unavailanna gutierrez PROVIDER, [facility] Referring UnavailALONDRA Quinn Primary Care Unavailable YAMILE SMALLWOOD Attending UnavailALONDRA Quinn Primary [facility] Unavailable Allergies Allergy Classification Reported Allergen(s) Allergy Type Date of Onset Reaction(s) Facility (1 source) Adhesive Tape Drug allergy (disorder) 04-04-2024 [facility] Repository Medications Current Medications Medication Drug Class(es) [...] 06-02-2021 acetaminophen (TYLENOL) tabl et 650 mg [id number] 200 actuat albuterol 0.09 mg/actuat metered dose [...] mg) docusate sodium 50 mg / sennosides, care home 8.6 mg oral tablet (2 sources) Start: [...] 1 tablet by mouth daily. 0 Active amnjiubotrap-Tt-ehuy-mi nerals Tab (1 source) take 1 tablet by mouth once daily hjlzqvonnwto-Pa-uwyt-m inerals Tab Take 1 tablet by mouth daily . Active nystatin 100 unt/mg topical powder (20 sources) Polyene Antifungal Start: 07-31-20 Nystatin (Nyamyc) 100,000 unit/gram Powder Active 1 APPLIC TOPICAL TWICE A DAY July 31, 2023 12:00am Start: 08-01-2021 End: 07-24-2023 Nystatin (Nyamyc) 100,000 un it/gram powder Discontinued 1 APPLIC TOPICAL BID@0600,2200 August 06, 2021 12:56pm July 24, 2023 11:29pm Nystatin [id number] UNIT/GM External Ointment ; bid ([id number] UNIT/GM) Status: Inactive pantoprazole 20 mg delayed [...] 07-03-2021 Start: 06-25-2021 take 1 spray(s) by [facility] every two hours as needed 1 spray, [...] with Zinc) tablet 1 tablet bacillus coagulans [id number] unt / lactobacillus acidophilus [id number] unt oral tablet (1 source) End: 07-03-2021 [...] End: 06-06-2021 40 mg, Intravenous, ONCE, On Carla 06/06/21 at 1145, For 1 dose Start: [...] sources) Long-term current use of antibiotic; 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 Date of Admission: 07/25/2023. Date of Discharge: [...] getting them on.Did see lymphedema clinic in [place]. 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 Date of Admission: 07/25/2023. Date of Discharge: [...] from hospital stay - Name of Hospital: [facility]. Date of Admission: 08/18/2023. Date of Discharge: [...] from hospital stay - Name of Hospital: [facility]. Date of Admission: 07/08/2023. Date of Discharge: [...] today.No fever.Did meet with bariatric surgery in [place] - has to get down to 420 /BMI 70 - prior to having the surgery. Working with dieticians. 02-06-2023 Unclassified (20 sources) form to fill out - Patient is here today to complete form for bariatric surgery - needs an OV within the past 30 days.Has symptoms of carpal tunnel - hands are falling asleep all the time. 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 [...] back. Note for Consultation follow-up: Going to [place] wound clinic every week - has appt w them tomorrow.Was evaluated by OT/PT ([facility]) but hasn't found out if she would be eligible for services.Nurse is coming 3 times per week.Has f/u appt with Dr. Keys ([facility]) 09/24 - is to have [...] back. Note for Consultation follow-up: Going to [place] wound clinic every week - has appt w them tomorrow.Was evaluated by OT/PT ([facility]) but hasn't found out if she would be eligible for services.Nurse is coming 3 times per week.Has f/u appt with Dr. Keys ([facility]) 09/24 - is to have [...] from hospital stay - Name of Hospital: [facility]. Date of Admission: 07/08/2023. Date of Discharge: [...] from hospital stay - Name of Hospital: [facility]. Date of Admission: 08/18/2023. Date of Discharge: [...] from hospital stay - Name of Hospital: [facility]. Date of Admission: 04/04/24. The patient was hospitalized for cellulitis . New medications include ATB-cefdinir (Often forgets to take afternoon dose). Patient was discharged to home. Note for Follow up from hospital stay: Pt states healing, skin currently peeling. No f/u with infectious disease scheduled. 04-15-2024 Unclassified (6 sources) Follow up from hospital stay - Name of Hospital: [facility]. Date of Admission: 04/04/24. The patient was hospitalized for cellulitis . New medications include ATB-cefdinir (Often forgets to take afternoon dose). Patient was discharged to home. Note for Follow up from hospital stay: Pt states healing, skin currently peeling. No f/u with infectious disease scheduled. 04-15-2024 Unclassified (14 sources) Follow up from hospital stay - Name of Hospital: [facility]. Date of Admission: 05/04/2024. Date of Discharge: [...] from hospital stay - Name of Hospital: [facility]. Date of Admission: 05/04/2024. Date of Discharge: [...] indicated. For additional information, please refer to http://education.Plexx.2sms/faq/UNO893 (This link is being provided for informational/ educational purposes only.) Performed By: #### 2 49, 6399, 7832, 4942, 375, 5810, 46137, 95576, 4420, 00335, 351, %78658, 809, 353, 905 #### [facility] [address], [address] [place] [address] Bench Shear Operator: Lc Masters MD #### [id number] #### [facility], [address] [place] [address] Bench Shear Operator: Yuki Paul MD,PhD,NEPTALI ANTINUCLEAR ANTIBODIES TITER AND PATTERNon 11-16-2024 LIZ PATTERN Nuclear, Homogeneous Abnormal [facility] Comment on above: Result Comment: Homo geneous pattern is associated with systemic lupus erythematosus (SLE), drug-induced lupus and juvenile idiopathic arthritis. AC-1: Homogeneous International Consensus on LIZ Patterns (https://doi.org/10.1515/hkgz-8230-5873) Performed By: #### 2 49, 6399, 7832, 4942, 375, 5810, 15986, 69931, 4420, 96055, 351, %03458, 809, 353, 905 #### [facility] [address], [address] [place] [address] Bench Shear Operator: Lc Masters MD #### [id number] #### [facility], [address] [place] [address] Bench Shear Operator: Yuki Paul MD,PhD,NEPTALI LIZ PATTERN Nuclear, Speckled Abnormal [facility] Comment on above: Result Comment: Spec kled pattern is associated with mixed connective tissue disease (MCTD), systemic lupus erythematosus (SLE), Sjogren's syndrome, dermatomyositis, and systemic sclerosis/polymyositis overlap. AC-2,4,5,29: Speckled International Consensus on LIZ Patterns (https://doi.org/10.1515/vuyr-0184-1680) Performed By: #### 2 49, 6399, 7832, 4942, 375, 5810, 03797, 98394, 4420, 97915, 351, %23751, 809, 353, 905 #### [facility] [address] , [address] [place] [address] Bench Shear Operator: Lc Masters MD #### [id number] #### [facility], [address] [place], [place] Bench Shear Operator: Yuki Paul MD,PhD,NEPTALI LIZ TITER 1:160 High [facility] Comment on above: Result Comment: Refe rence Range <1:40 Negative 1:40-1:80 Low Antibody Level >1:80 Elevated Antibody Level Performed By: #### 2 49, 6399, 7832, 4942, 375, 5810, 77219, 82472, 4420, 29770, 351, %72632, 809, 353, 905 #### [facility] [address], [address] [place] [address] Bench Shear Operator: Lc Masters MD #### [id number] #### [facility], [address] [place], [place] Bench Shear Operator: Yuki Paul MD,PhD,NEPTALI C-REACTIVE PROTEINon 024 CRP [Mass/Vol] 33.1 mg/L High <8.0 [facility] Comment on above: Performed By: #### 2 49, 6399, 7832, 4942, 375, 5810, 20622, 92488, 4420, 80589, 351, %33586, 809, 353, 905 #### [facility] [address], [address] [place] [address] Bench Shear Operator: Lc Masters MD #### [id number] #### [facility], [address] [place] Bench Shear Operator: Yuki Paul MD,PhD,NEPTALI CBC (INCLUDES DIFF/PLT)on Basophils (Bld) [#/Vol] 0.013 10*3/uL Normal 0-200 [facility] Comment on above: Performed By: #### 2 49, 6399, 7832, 4942, 375, 5810, 38255, 64284, 4420, 32658, 351, %37277, 809, 353, 905 #### [facility] [place] [address] Bench Shear Operator: Lc Masters MD #### [id number] #### [facility], [address] [place], [place] [address] Bench Shear Operator: Yuki Paul MD,PhD,NEPTALI Basophils/100 WBC (Bld) 0.2 % Normal [facility] Comment on above: Performed By: #### 2 49, 6399, 7832, 4942, 375, 5810, 67479, 02842, 4420, 41850, 351, %09857, 809, 353, 905 #### [facility] [place] [address] Bench Shear Operator: Lc Masters MD #### [id number] #### [facility], [address] [place], [place] [address] Bench Shear Operator: Yuki Paul MD,PhD,NEPTALI Eosinophils (Bld) [#/Vol] 0 10*3/uL Low 15-500 [facility] Comment on above: Performed By: #### 2 49, 6399, 7832, 4942, 375, 5810, 52211, 41570, 4420, 81167, 351, %76558, 809, 353, 905 #### [facility] [place] [address] Bench Shear Operator: Lc Masters MD #### [id number] #### [facility], [address] [place] [address] Bench Shear Operator: Yuki Paul MD,PhD,NEPTALI Eosinophils/100 WBC (Bld) 0.0 % Normal [facility] Comment on above: Performed By: #### 2 49, 6399, 7832, 4942, 375, 5810, 13360, 35907, 4420, 13450, 351, %63875, 809, 353, 905 #### [facility] [place] [address] Bench Shear Operator: Lc Masters MD #### [id number] #### [facility], [address] [place] [address] Bench Shear Operator: Yuki Paul MD,PhD,NEPTALI Erythrocyte distribution width (RBC) [Ratio] 14.2 % Normal 11.0-15.0 [facility] Comment on above: Performed By: #### 2 49, 6399, 7832, 4942, 375, 5810, 28909, 54524, 4420, 82396, 351, %40114, 809, 353, 905 #### [facility] [place] [address] Bench Shear Operator: Lc Masters MD #### [id number] #### [facility]/[address] [address] Bench Shear Operator: Yuki Paul MD,PhD,NEPTALI Hematocrit (Bld) [Volume fraction] 41.1 % Normal 35.0-45.0 [facility] Comment on above: Performed By: #### 2 49, 6399, 7832, 4942, 375, 5810, 93936, 09305, 4420, 23953, 351, %66795, 809, 353, 905 #### [facility] [place] [address] Bench Shear Operator: Lc Masters MD #### [id number] #### [facility]/[address] [address] Bench Shear Operator: Yuki Paul MD,PhD,NEPTALI Hemoglobin (Bld) [Mass/Vol] 13.0 g/dL Normal 11.7-15.5 [facility] Comment on above: Performed By: #### 2 49, 6399, 7832, 4942, 375, 5810, 38157, 63178, 4420, 06084, 351, %01616, 809, 353, 905 #### [facility] [place] [address] Bench Shear Operator: Lc Masters MD #### [id number] #### [facility], [address] [place], [place] [address] Bench Shear Operator: Yuki Paul MD,PhD,NEPTALI Lymphocytes (Bld) [#/Vol] 1.133 10*3/uL Normal 850-3900 [facility] Comment on above: Performed By: #### 2 49, 6399, 7832, 4942, 375, 5810, 95523, 51224, 4420, 65291, 351, %59308, 809, 353, 905 #### [facility] [place] [address] Bench Shear Operator: Lc Masters MD #### [id number] #### [facility], [address] [place], [place] [address] Bench Shear Operator: Yuki Paul MD,PhD,NEPTALI Lymphocytes/100 WBC (Bld) 17.7 % Normal [facility] Comment on above: Performed By: #### 2 49, 6399, 7832, 4942, 375, 5810, 10942, 30915, 4420, 85191, 351, %42797, 809, 353, 905 #### [facility] [place] [address] Bench Shear Operator: Lc Masters MD #### [id number] #### [facility], [facility] [place] [phone] Bench Shear Operator: Yuki Paul MD,PhD,NEPTALI MCH (RBC) [Entitic mass] 26.6 pg Low 27.0-33.0 [facility] Comment on above: Performed By: #### 2 49, 6399, 7832, 4942, 375, 5810, 53110, 09355, 4420, 61711, 351, %50497, 809, 353, 905 #### [facility] [address] Bench Shear Operator: Lc Masters MD #### [id number] #### [facility], [address] [place] [address] Bench Shear Operator: Yuki Paul MD,PhD,NEPTALI MCHC (RBC) [Mass/Vol] 31.6 g/dL Low 32.0-36.0 On License Of [facility] Comment on above: Result Comment: For adults, a slight decrease in the calculated MCHC value (in the range of 30 to 32 g/dL) is most likely not clinically significant; however, it should be interpreted with caution in correlation with other red cell parameters and the patient's clinical condition. Performed By: #### 2 49, 6399, 7832, 4942, 375, 5810, 66462, 19949, 4420, 52088, 351, %93453, 809, 353, 905 #### [facility] [place] [address] Bench Shear Operator: Lc Masters MD #### [id number] #### [facility]/[address] [address] Bench Shear Operator: Yuki Paul MD,PhD,NEPTALI MCV (RBC) [Entitic vol] 84.0 fL Normal 80.0-100.0 [facility] Comment on above: Performed By: #### 2 49, 6399, 7832, 4942, 375, 5810, 79873, 79486, 4420, 60400, 351, %23524, 809, 353, 905 #### [place] [address] Bench Shear Operator: Lc Masters MD #### [id number] #### [facility], [address] [place], [place] [address] Bench Shear Operator: Yuki Paul MD,PhD,NEPTALI Monocytes (Bld) [#/Vol] 0.41 10*3/uL Normal 200-950 [facility] Comment on above: Performed By: #### 2 49, 6399, 7832, 4942, 375, 5810, 76097, 55058, 4420, 54845, 351, %23442, 809, 353, 905 #### [facility] [place] [address] Bench Shear Operator: Lc Masters MD #### [id number] #### [facility], [address] [place], [place] [address] Bench Shear Operator: Yuki Paul MD,PhD,NEPTALI Monocytes/100 WBC (Bld) 6.4 % Normal [facility] Comment on above: Performed By: #### 2 49, 6399, 7832, 4942, 375, 5810, 12928, 77517, 4420, 25549, 351, %03163, 809, 353, 905 #### [facility] [address], [address] [place] [address] Bench Shear Operator: Lc Masters MD #### [id number] #### [facility], [facility] [place] [address] Bench Shear Operator: Yuki Paul MD,PhD,NEPTALI Neutrophils (Bld) [#/Vol] 4.845 10*3/uL Normal 7370-8818 [facility] Comment on above: Performed By: #### 2 49, 6399, 7832, 4942, 375, 5810, 70903, 38908, 4420, 95893, 351, %44569, 809, 353, 905 #### [facility] [address], [address] [place] [address] Bench Shear Operator: Lc Masters MD #### [id number] #### [facility], [address] [place] [phone] Bench Shear Operator: Yuki Paul MD,PhD,NEPTALI Neutrophils/100 WBC (Bld) 75.7 % Normal [facility] Comment on above: Performed By: #### 2 49, 6399, 7832, 4942, 375, 5810, 24899, 59347, 4420, 38215, 351, %72628, 809, 353, 905 #### [facility] [place] [address] Bench Shear Operator: Lc Masters MD #### [id number] #### [facility], [address] [place] [phone] Bench Shear Operator: Yuki Paul MD,PhD,NEPTALI Platelet mean volume (Bld) [Entitic vol] 10.0 fL Normal 7.5-12.5 [facility] Comment on above: Performed By: #### 2 49, 6399, 7832, 4942, 375, 5810, 62598, 88262, 4420, 81097, 351, %85320, 809, 353, 905 #### [facility] [address], [address] [place] [address] Bench Shear Operator: Lc Masters MD #### [id number] #### [facility], [address] [place] Bench Shear Operator: Yuki Paul MD,PhD,NEPTALI Platelets (Bld) [#/Vol] 229 10*3/uL Normal 140-400 [facility] Comment on above: Performed By: #### 2 49, 6399, 7832, 4942, 375, 5810, 17157, 83436, 4420, 63279, 351, %22356, 809, 353, 905 #### [facility] [address], [address] [place] [address] Bench Shear Operator: Lc Masters MD #### [id number] #### [facility], [address] [place] [address] Bench Shear Operator: Yuki Paul MD,PhD,NEPTALI RBC (Bld) [#/Vol] 4.89 10*6/uL Normal 3.80-5.10 [facility] Comment on above: Performed By: #### 2 49, 6399, 7832, 4942, 375, 5810, 90300, 92696, 4420, 96143, 351, %86460, 809, 353, 905 #### [facility] [address], [address] [place] [address] Bench Shear Operator: Lc Masters MD #### [id number] #### [facility], [address] [place] [address] Bench Shear Operator: Yuki Paul MD,PhD,NEPTALI WBC (Bld) [#/Vol] 6.4 10*3/uL Normal 3.8-10.8 [facility] Comment on above: Performed By: #### 2 49, 6399, 7832, 4942, 375, 5810, 63032, 89486, 4420, 49238, 351, %89345, 809, 353, 905 #### [facility] [place] [address], [address] [place] [address] Bench Shear Operator: Lc Masters MD #### [id number] #### [facility], [address] [place] [address] Bench Shear Operator: Yuki Paul MD,PhD,NEPTALI CHROMATIN (NUCLEOSOMAL) ANTI BODYon 11-16-2024 CHROMATIN (NUCLEOSOMAL) ANTIBODY <1.0 NEG Normal <1.0 NEG [facility] Comment on above: Performed By: #### 2 49, 6399, 7832, 4942, 375, 5810, 38709, 47263, 4420, 89455, 351, %33733, 809, 353, 905 #### [facility] [place] [address], [address] [place] [address] Bench Shear Operator: Lc Masters MD #### [id number] #### [facility], [facility] [place] Bench Shear Operator: Yuki Paul MD,PhD,NEPTALI COMPLEMENT COMPONENT C3Con 1 01-17-2024 COMPLEMENT COMPONENT C3C 181 mg/dL Normal 83-193 [facility] Comment on above: Performed By: #### 2 49, 6399, 7832, 4942, 375, 5810, 60778, 35261, 4420, 37667, 351, %63890, 809, 353, 905 #### [facility] [address], [address] [place] [address] Bench Shear Operator: Lc Masters MD #### [id number] #### [facility], [address] [place] Bench Shear Operator: Yuki Paul MD,PhD,NEPTALI COMPLEMENT COMPONENT C4Con 1 01-17-2024 COMPLEMENT COMPONENT C4C 27 mg/dL Normal 15-57 [facility] Comment on above: Performed By: #### 2 49, 6399, 7832, 4942, 375, 5810, 50285, 26292, 4420, 92289, 351, %71990, 809, 353, 905 #### [facility] [address], [address] [place] [address] Bench Shear Operator: Lc Masters MD #### [id number] #### [facility], [address] [place] Bench Shear Operator: Yuki Paul MD,PhD,NEPTALI CREATININEon 11-16-2024 Creatinine [Mass/Vol] 0.81 mg/dL Normal 0.50-1.03 On License Of [facility] Comment on above: Order Comment: FASTI NG:YES FASTING: YES Performed By: #### 2 49, 6399, 7832, 4942, 375, 5810, 80660, 50333, 4420, 99271, 351, %04042, 809, 353, 905 #### [place] [address] Bench Shear Operator: Lc Masters MD #### [id number] #### [facility], [address] [place] [address] Bench Shear Operator: Yuki Paul MD,PhD,NEPTALI GFR/1.73 sq M.predicted among non-blacks MDRD (S/P/Bld) [Vol rate/Area] 85 mL/min/{1.73_m2} Normal > OR = 60 [facility] Comment on above: Order Comment: FASTI NG:YES FASTING: YES Performed By: #### 2 49, 6399, 7832, 4942, 375, 5810, 90627, 92275, 4420, 59715, 351, %50593, 809, 353, 905 #### [place] [address] Bench Shear Operator: Lc Masters MD #### [id number] #### [facility], [address] [place] [address] Bench Shear Operator: Yuki Paul MD,PhD,NEPTALI DNA (DS) ANTIBODY, CRITHIDIA , IFA W/REFLon 11-16-2024 DNA AB (DS) CRITHIDIA,IFA Negative Normal NEGATIVE [facility] Comment on above: Performed By: #### 2 49, 6399, 7832, 4942, 375, 5810, 94006, 72105, 4420, 15115, 351, %06238, 809, 353, 905 #### [facility] [place] [address] Bench Shear Operator: Lc Masters MD #### [id number] #### [facility], [address] [place] [address] Bench Shear Operator: Yuki Paul MD,PhD,NEPTALI HEPATIC FUNCTION PANELon Albumin [Mass/Vol] 4.3 g/dL Normal 3.6-5.1 [facility] Comment on above: Performed By: #### 2 49, 6399, 7832, 4942, 375, 5810, 78527, 35585, 4420, 46611, 351, %72220, 809, 353, 905 #### [facility] [place] [address] Bench Shear Operator: Lc Masters MD #### [id number] #### [facility], [address] [place] [address] Bench Shear Operator: Yuki Paul MD,PhD,NEPTALI Albumin/Globulin [Mass ratio] 1.3 {ratio} Normal 1.0-2.5 [facility] Comment on above: Performed By: #### 2 49, 6399, 7832, 4942, 375, 5810, 09482, 47245, 4420, 40635, 351, %20491, 809, 353, 905 #### [facility] [place] [address] Bench Shear Operator: Lc Masters MD #### [id number] #### [facility], [address] [place] [address] Bench Shear Operator: Yuki Paul MD,PhD,NEPTALI ALP [Catalytic activity/Vol] 76 U/L Normal 37-153 [facility] Comment on above: Performed By: #### 2 49, 6399, 7832, 4942, 375, 5810, 44268, 27041, 4420, 99455, 351, %33899, 809, 353, 905 #### [facility] [address], [address] [place] [address] Bench Shear Operator: Lc Masters MD #### [id number] #### [facility], [address] [place] [address] Bench Shear Operator: Yuki Paul MD,PhD,NEPTALI ALT [Catalytic activity/Vol] 18 U/L Normal 6-29 [facility] Comment on above: Performed By: #### 2 49, 6399, 7832, 4942, 375, 5810, 66448, 80529, 4420, 79800, 351, %87261, 809, 353, 905 #### [facility] [address], [address] [place] [address] Bench Shear Operator: Lc Masters MD #### [id number] #### [facility], [facility] [place] [address] Bench Shear Operator: Yuki Paul MD,PhD,NEPTALI AST [Catalytic activity/Vol] 18 U/L Normal 10-35 [facility] Comment on above: Performed By: #### 2 49, 6399, 7832, 4942, 375, 5810, 73671, 50383, 4420, 14203, 351, %79876, 809, 353, 905 #### [facility] of [address], [address] [place] [address] Bench Shear Operator: Lc Masters MD #### [id number] #### [facility], [address] [place] [address] Bench Shear Operator: Yuki Paul MD,PhD,NEPTALI Bilirubin [Mass/Vol] 0.5 mg/dL Normal 0.2-1.2 [facility] Comment on above: Performed By: #### 2 49, 6399, 7832, 4942, 375, 5810, 88853, 43064, 4420, 48168, 351, %72697, 809, 353, 905 #### [facility] [place] [address] Bench Shear Operator: Lc Masters MD #### [id number] #### [facility], [address] [place], [place] [address] Bench Shear Operator: Yuki Paul MD,PhD,NEPTALI BILIRUBIN, INDIRECT 0.4 mg/dL (calc) Normal 0.2-1.2 [facility] Comment on above: Performed By: #### 2 49, 6399, 7832, 4942, 375, 5810, 67809, 17319, 4420, 68962, 351, %79549, 809, 353, 905 #### [facility] [place] [address] Bench Shear Operator: Lc Masters MD #### [id number] #### [facility], [facility] [place] [id number] Bench Shear Operator: Yuki Paul MD,PhD,NEPTALI Bilirubin.indirect [Mass/Vol] 0.1 mg/dL Normal < OR = 0.2 [facility] Comment on above: Performed By: #### 2 49, 6399, 7832, 4942, 375, 5810, 66799, 29416, 4420, 08025, 351, %18048, 809, 353, 905 #### [facility] [place] [address] Bench Shear Operator: Lc Masters MD #### [id number] #### [facility], [facility] [place] [address] Bench Shear Operator: Yuki Paul MD,PhD,NEPTALI Globulin (S) [Mass/Vol] 3.2 g/dL Normal 1.9-3.7 [facility] Comment on above: Performed By: #### 2 49, 6399, 7832, 4942, 375, 5810, 22559, 06934, 4420, 57950, 351, %71424, 809, 353, 905 #### [facility] [address], [address] [place] [address] Bench Shear Operator: Lc Masters MD #### [id number] #### [facility], [address] [place] Bench Shear Operator: Yuki Paul MD,PhD,NEPTALI Protein [Mass/Vol] 7.5 g/dL Normal 6.1-8.1 [facility] Comment on above: Performed By: #### 2 49, 6399, 7832, 4942, 375, 5810, 96852, 26657, 4420, 28887, 351, %12722, 809, 353, 905 #### [facility] [address], [address] [place] [address] Bench Shear Operator: Lc Masters MD #### [id number] #### [facility], [address] [place] Bench Shear Operator: Yuki Paul MD,PhD,NEPTALI NEYDA-1 ANTIBODYon 11-16-2024 NEYDA-1 ANTIBODY <1.0 NEG Normal <1.0 NEG [facility] Comment on above: Performed By: #### 2 49, 6399, 7832, 4942, 375, 5810, 95093, 64922, 4420, 46212, 351, %12808, 809, 353, 905 #### [facility] [place] [address] Bench Shear Operator: Lc Masters MD #### [id number] #### [facility], [address] [place] Bench Shear Operator: Yuki Paul MD,PhD,NEPTALI SCL-70 ANTIBODYon 11-16-2024 SCL-70 ANTIBODY <1.0 NEG Normal <1.0 NEG [facility] Comment on above: Performed By: #### 2 49, 6399, 7832, 4942, 375, 5810, 81461, 97346, 4420, 18488, 351, %74696, 809, 353, 905 #### [facility] [address] [facility], [address] [place] [address] Bench Shear Operator: Lc Masters MD #### [id number] #### [facility], [address] [place] [address] Bench Shear Operator: Yuki Paul MD,PhD,NEPTALI SED RATE BY MODIFIED WESTERG RENon 11-16-2024 SED RATE BY MODIFIED WESTERGREN 33 mm/h High < OR = 30 [facility] Comment on above: Performed By: #### 2 49, 6399, 7832, 4942, 375, 5810, 57163, 39512, 4420, 44543, 351, %67897, 809, 353, 905 #### [facility] [address] [facility], [address] [place] [address] Bench Shear Operator: Lc Masters MD #### [id number] #### [facility], [address] [place] [address] Bench Shear Operator: Yuki Paul MD,PhD,NEPTALI SJOGREN'S ANTIBODIES (SS-A,S S-B)on 11-16-2024 SJOGREN'S ANTIBODY (SS-A) <1.0 NEG Normal <1.0 NEG [facility] Comment on above: Performed By: #### 2 49, 6399, 7832, 4942, 375, 5810, 32732, 53268, 4420, 17625, 351, %60424, 809, 353, 905 #### [facility] [address] , [address] [place] [address] Bench Shear Operator: Lc Masters MD #### [id number] #### [facility], [address] [place] [address] Bench Shear Operator: Yuki Paul MD,PhD,NEPTALI SJOGREN'S ANTIBODY (SS-B) <1.0 NEG Normal <1.0 NEG [facility] Comment on above: Performed By: #### 2 49, 6399, 7832, 4942, 375, 5810, 22767, 55019, 4420, 36051, 351, %83477, 809, 353, 905 #### [facility] [address], [address] [place] [address] Bench Shear Operator: Lc Masters MD #### [id number] #### [facility], [address] [place] [address] Bench Shear Operator: Yuki Paul MD,PhD,NEPTALI SM/MANAGER INTRANET ANTIBODYon 11-16-2024 SM/MANAGER INTRANET ANTIBODY <1.0 NEG Normal <1.0 NEG [facility] Comment on above: Performed By: #### 2 49, 6399, 7832, 4942, 375, 5810, 82882, 97239, 4420, 39479, 351, %26517, 809, 353, 905 #### [facility] [address], [address] [place], [place] [id number] Bench Shear Operator: Lc Masters MD #### [id number] #### [facility], [address] [place], [place] Bench Shear Operator: Yuki Paul MD,PhD,NEPTALI URIC ACIDon 11-16-2024 Urate [Mass/Vol] 6.5 mg/dL Normal 2.5-7.0 [facility] Comment on above: Result Comment: Ther apeutic target for gout patients: <6.0 mg/dL Performed By: #### 2 49, 6399, 7832, 4942, 375, 5810, 44583, 43725, 4420, 64437, 351, %78378, 809, 353, 905 #### [facility] [address], [address] [place] [address] Bench Shear Operator: Lc Masters MD #### [id number] #### [facility], [address] [place] [address] Bench Shear Operator: Yuki Paul MD,PhD,NEPTALI PROTEIN, TOTAL W/CREAT, [facility] URINEon 11-12-2024 Creatinine (U) [Mass/Vol] 99 mg/dL Normal 20-275 [facility] Comment on above: Performed By: #### 2 49, 6399, 7832, 4942, 375, 5810, 62907, 46756, 4420, 55278, 351, %81798, 809, 353, 905 #### [facility] [place] [address], [address] [place] [address] Bench Shear Operator: Lc Masters MD #### [id number] #### [facility], [address] [place] [address] Bench Shear Operator: Yuki Paul MD,PhD,NEPTALI Protein (U) [Mass/Vol] 9 mg/dL Normal 5-24 [facility] Comment on above: Performed By: #### 2 49, 6399, 7832, 4942, 375, 5810, 36628, 47964, 4420, 05130, 351, %38732, 809, 353, 905 #### [facility] [place] [address] [address] , [address] [place] [address] Bench Shear Operator: Lc Masters MD #### [id number] #### [facility], [address] [place] [address] Bench Shear Operator: Yuki Paul MD,PhD,NEPTALI PROTEIN/CREATININE RATIO 91 mg/g creat Normal 24-184 [facility] Comment on above: Performed By: #### 2 49, 6399, 7832, 4942, 375, 5810, 10876, 11514, 4420, 37934, 351, %58338, 809, 353, 905 #### [facility] [place] [address], [address] [place] [address] Bench Shear Operator: Lc Masters MD #### [id number] #### [facility], [facility] [place] [id number] Bench Shear Operator: Yuki Paul MD,PhD,NEPTALI PROTEIN/CREATININE RATIO 0.091 mg/mg creat Normal 0.024-0.184 [facility] Comment on above: Performed By: #### 2 49, 6399, 7832, 4942, 375, 5810, 33073, 93340, 4420, 18239, 351, %50813, 809, 353, 905 #### [facility] [address], [address] [place] [address] Bench Shear Operator: Lc Masters MD #### [id number] #### [facility], [address] [place], [place] [id number] Bench Shear Operator: Yuki Paul MD,PhD,NEPTALI URINALYSIS, COMPLETE 11-12 Appearance (U) CLEAR Normal CLEAR [facility] Comment on above: Order Comment: FASTI NG:YESFASTING: YES Performed By: #### 2 49, 6399, 7832, 4942, 375, 5810, 94389, 42348, 4420, 83356, 351, %63485, 809, 353, 905 #### [facility] [place] [address] Bench Shear Operator: Lc Masters MD #### [id number] #### [facility], [address] [place], [place] Bench Shear Operator: Yuki Paul MD,PhD,NEPTALI BACTERIA NONE SEEN Normal NONE SEEN [facility] Comment on above: Order Comment: FASTI NG:YESFASTING: YES Performed By: #### 2 49, 6399, 7832, 4942, 375, 5810, 85690, 09309, 4420, 19495, 351, %71992, 809, 353, 905 #### [facility] [address] , [address] [place] [address] Bench Shear Operator: Lc Masters MD #### [id number] #### [facility], [facility] [place] [address] Bench Shear Operator: Yuki Paul MD,PhD,NEPTALI Bilirubin Ql (U) Negative Normal NEGATIVE [facility] Comment on above: Order Comment: FASTI NG:YESFASTING: YES Performed By: #### 2 49, 6399, 7832, 4942, 375, 5810, 01595, 30138, 4420, 09257, 351, %60010, 809, 353, 905 #### [facility] [address], [address] [place] [address] Bench Shear Operator: Lc Masters MD #### [id number] #### [facility], [facility] [place] [address] Bench Shear Operator: Yuki Paul MD,PhD,NEPTALI Color (U) YELLOW Normal YELLOW [facility] Comment on above: Order Comment: FASTI NG:YESFASTING: YES Performed By: #### 2 49, 6399, 7832, 4942, 375, 5810, 81528, 30005, 4420, 55277, 351, %10911, 809, 353, 905 #### [facility] [address], [address] [place] [address] Bench Shear Operator: Lc Masters MD #### [id number] #### [facility], [address] [place] [address] Bench Shear Operator: Yuki Paul MD,PhD,NEPTALI Glucose Ql (U) Negative Normal NEGATIVE [facility] Comment on above: Order Comment: FASTI NG:YESFASTING: YES Performed By: #### 2 49, 6399, 7832, 4942, 375, 5810, 13670, 59240, 4420, 19489, 351, %08291, 809, 353, 905 #### [facility] [address], [address] [place] [address] Bench Shear Operator: Lc Masters MD #### [id number] #### [facility], [address] [place], [place] [address] Bench Shear Operator: Yuki Paul MD,PhD,NEPTALI HYALINE CAST NONE SEEN Normal NONE SEEN [facility] Comment on above: Order Comment: FASTI NG:YESFASTING: YES Performed By: #### 2 49, 6399, 7832, 4942, 375, 5810, 70581, 20877, 4420, 60231, 351, %36590, 809, 353, 905 #### [facility] [place] [address] Bench Shear Operator: Lc Masters MD #### [id number] #### [facility], [address] [place] [address] Bench Shear Operator: Yuki Paul MD,PhD,NEPTALI Ketones Ql (U) Negative Normal NEGATIVE [facility] Comment on above: Order Comment: FASTI NG:YESFASTING: YES Performed By: #### 2 49, 6399, 7832, 4942, 375, 5810, 91572, 35580, 4420, 76716, 351, %23789, 809, 353, 905 #### [facility] [address] , [address] [place] [address] Bench Shear Operator: Lc Masters MD #### [id number] #### [facility], [address] [place] [address] Bench Shear Operator: Yuki Paul MD,PhD,NEPTALI Leukocyte esterase Test strip Ql (U) Negative Normal NEGATIVE [facility] Comment on above: Order Comment: FASTI NG:YESFASTING: YES Performed By: #### 2 49, 6399, 7832, 4942, 375, 5810, 69554, 01156, 4420, 44285, 351, %54648, 809, 353, 905 #### [facility] [address], [address] [place] [address] Bench Shear Operator: Lc Masters MD #### [id number] #### [facility], [address] [place], [place] [address] Bench Shear Operator: Yuki Paul MD,PhD,NEPTALI Nitrite Ql (U) Negative Normal NEGATIVE [facility] Comment on above: Order Comment: FASTI NG:YESFASTING: YES Performed By: #### 2 49, 6399, 7832, 4942, 375, 5810, 36071, 63460, 4420, 51960, 351, %95691, 809, 353, 905 #### [facility] [address], [address] [place] [address] Bench Shear Operator: Lc Masters MD #### [id number] #### [facility], [facility] [place] [address] Bench Shear Operator: Yuki Paul MD,PhD,NEPTALI OCCULT BLOOD Negative Normal NEGATIVE [facility] Comment on above: Order Comment: FASTI NG:YESFASTING: YES Performed By: #### 2 49, 6399, 7832, 4942, 375, 5810, 19311, 98301, 4420, 68185, 351, %65375, 809, 353, 905 #### [facility] [address], [address] [place] [address] Bench Shear Operator: Lc Masters MD #### [id number] #### [facility], [facility] [place] [address] Bench Shear Operator: Yuki Paul MD,PhD,NEPTALI pH (U) 5.5 [pH] Normal 5.0-8.0 [facility] Comment on above: Order Comment: FASTI NG:YESFASTING: YES Performed By: #### 2 49, 6399, 7832, 4942, 375, 5810, 26404, 16919, 4420, 95224, 351, %64396, 809, 353, 905 #### [facility] [address], [address] [place] [address] Bench Shear Operator: Lc Masters MD #### [id number] #### [facility], [address] [place], [place] [id number] Bench Shear Operator: Yuki Paul MD,PhD,NEPTALI Protein Ql (U) Negative Normal NEGATIVE [facility] Comment on above: Order Comment: FASTI NG:YESFASTING: YES Performed By: #### 2 49, 6399, 7832, 4942, 375, 5810, 23749, 84925, 4420, 30426, 351, %27289, 809, 353, 905 #### [facility] [place] [address] Bench Shear Operator: Lc Masters MD #### [id number] #### [facility], [address] [place], [place] [id number] Bench Shear Operator: Yuki Paul MD,PhD,NEPTALI RBC NONE SEEN Normal < OR = 2 [facility] Comment on above: Order Comment: FASTI NG:YESFASTING: YES Performed By: #### 2 49, 6399, 7832, 4942, 375, 5810, 68741, 23601, 4420, 26918, 351, %29361, 809, 353, 905 #### [facility] [place] [address] [place] [address] Bench Shear Operator: Lc Masters MD #### [id number] #### [facility], [address] [place] [address] Bench Shear Operator: Yuki Paul MD,PhD,NEPTALI Specific gravity (U) [Rel density] 1.020 Normal 1.001-1.035 [facility] Comment on above: Order Comment: FASTI NG:YESFASTING: YES Performed By: #### 2 49, 6399, 7832, 4942, 375, 5810, 21724, 27808, 4420, 14273, 351, %68117, 809, 353, 905 #### [facility] [place] [address] Bench Shear Operator: Lc Masters MD #### [id number] #### [facility], [facility] [place] [id number] Bench Shear Operator: Yuki Paul MD,PhD,NEPTALI SQUAMOUS EPITHELIAL CELLS 0-5 Normal < OR = 5 [facility] Comment on above: Order Comment: FASTI NG:YESFASTING: YES Performed By: #### 2 49, 6399, 7832, 4942, 375, 5810, 90047, 91373, 4420, 26432, 351, %67281, 809, 353, 905 #### [facility] [address], [address] [place] [address] Bench Shear Operator: Lc Masters MD #### [id number] #### [facility], [address] [place] [address] Bench Shear Operator: Yuki Paul MD,PhD,NEPTALI WBC NONE SEEN Normal < OR = 5 [facility] Comment on above: Order Comment: FASTI NG:YESFASTING: YES Performed By: #### 2 49, 6399, 7832, 4942, 375, 5810, 19749, 81038, 4420, 74193, 351, %34502, 809, 353, 905 #### [facility] [address], [address] [place] [address] Bench Shear Operator: Lc Masters MD #### [id number] #### [facility], [address] [place] [address] Bench Shear Operator: Yuki Paul MD,PhD,NEPTALI COMPREHENSIVE METABOLIC [facility] 06-25-2024 Albumin [Mass/Vol] 4.2 g/dL Normal 3.6-5.1 [facility] Comment on above: Performed By: #### 2 49, 6399, 7832, 4942, 375, 5810, 10751, 37262, 4420, 78592, 351, %63265, 809, 353, 905 #### [facility] [address], [address] [place] [address] Bench Shear Operator: Lc Masters MD #### [id number] #### [facility], [facility] [place] [address] Bench Shear Operator: Yuki Paul MD,PhD,NEPTALI Albumin/Globulin [Mass ratio] 1.2 {ratio} Normal 1.0-2.5 [facility] Comment on above: Performed By: #### 2 49, 6399, 7832, 4942, 375, 5810, 70490, 52395, 4420, 69678, 351, %85405, 809, 353, 905 #### [facility] [address], [address] [place] [address] Bench Shear Operator: Lc Masters MD #### [id number] #### [facility], [address] [place] [address] Bench Shear Operator: Yuki Paul MD,PhD,NEPTALI ALP [Catalytic activity/Vol] 66 U/L Normal 37-153 [facility] Comment on above: Performed By: #### 2 49, 6399, 7832, 4942, 375, 5810, 34675, 33811, 4420, 69310, 351, %77237, 809, 353, 905 #### [facility] [place] [address] Bench Shear Operator: Lc Masters MD #### [id number] #### [facility], [address] [place], [place] [address] Bench Shear Operator: Yuki Paul MD,PhD,NEPTALI ALT [Catalytic activity/Vol] 13 U/L Normal 6-29 [facility] Comment on above: Performed By: #### 2 49, 6399, 7832, 4942, 375, 5810, 26661, 60900, 4420, 48802, 351, %19001, 809, 353, 905 #### [facility] [place] [address] Bench Shear Operator: Lc Masters MD #### [id number] #### [facility], [address] [place] [address] Bench Shear Operator: Yuki Paul MD,PhD,NEPTALI AST [Catalytic activity/Vol] 14 U/L Normal 10-35 [facility] Comment on above: Performed By: #### 2 49, 6399, 7832, 4942, 375, 5810, 63402, 92271, 4420, 05696, 351, %01181, 809, 353, 905 #### [facility] [place] [address] Bench Shear Operator: Lc Masters MD #### [id number] #### [facility], [address] [place] [address] Bench Shear Operator: Yuki Paul MD,PhD,NEPTALI Bilirubin [Mass/Vol] 0.5 mg/dL Normal 0.2-1.2 [facility] Comment on above: Performed By: #### 2 49, 6399, 7832, 4942, 375, 5810, 99604, 73345, 4420, 51078, 351, %22727, 809, 353, 905 #### [facility] [address], [address] [place] [address] Bench Shear Operator: Lc Masters MD #### [id number] #### [facility], [address] [place] [address] Bench Shear Operator: Yuki Paul MD,PhD,NEPTALI BUN/CREATININE RATIO SEE NOTE: Normal 6-22 [facility] Comment on above: Result Comment: Not Reported: BUN and Creatinine are within reference range. Performed By: #### 2 49, 6399, 7832, 4942, 375, 5810, 75416, 33757, 4420, 17381, 351, %63154, 809, 353, 905 #### [facility] [address], [address] [place] [address] Bench Shear Operator: Lc Masters MD #### [id number] #### [facility], [address] [place] [address] Bench Shear Operator: Yuki Paul MD,PhD,NEPTALI Calcium [Mass/Vol] 9.5 mg/dL Normal 8.6-10.4 [facility] Comment on above: Performed By: #### 2 49, 6399, 7832, 4942, 375, 5810, 63078, 90982, 4420, 15637, 351, %75696, 809, 353, 905 #### [facility] [address], [address] [place] [address] Bench Shear Operator: Lc Masters MD #### [id number] #### [facility], [address] [place] [address] Bench Shear Operator: Yuki Paul MD,PhD,NEPTALI Chloride [Moles/Vol] 102 mmol/L Normal 98-110 [facility] Comment on above: Performed By: #### 2 49, 6399, 7832, 4942, 375, 5810, 51893, 60530, 4420, 23652, 351, %23066, 809, 353, 905 #### [facility] [address], [address] [place] [address] Bench Shear Operator: Lc Masters MD #### [id number] #### [facility], [address] [place] [address] Bench Shear Operator: Yuki Paul MD,PhD,NEPTALI CO2 [Moles/Vol] 27 mmol/L Normal 20-32 [facility] Comment on above: Performed By: #### 2 49, 6399, 7832, 4942, 375, 5810, 19794, 78675, 4420, 71188, 351, %28314, 809, 353, 905 #### [facility] [address], [address] [place] [address] Bench Shear Operator: Lc Masters MD #### [id number] #### [facility], [facility] [place] [address] Bench Shear Operator: Yuki Paul MD,PhD,NEPTALI Creatinine [Mass/Vol] 0.80 mg/dL Normal 0.50-1.03 On License Of [facility] Comment on above: Performed By: #### 2 49, 6399, 7832, 4942, 375, 5810, 80681, 25687, 4420, 01860, 351, %80406, 809, 353, 905 #### [facility] [place] [address] Bench Shear Operator: Lc Masters MD #### [id number] #### [facility], [address] [place] [address] Bench Shear Operator: Yuki Paul MD,PhD,NEPTALI GFR/1.73 sq M.predicted among non-blacks MDRD (S/P/Bld) [Vol rate/Area] 86 mL/min/{1.73_m2} Normal > OR = 60 [facility] Comment on above: Performed By: #### 2 49, 6399, 7832, 4942, 375, 5810, 58646, 69927, 4420, 66080, 351, %20497, 809, 353, 905 #### [facility] [place] [address] Bench Shear Operator: Lc Masters MD #### [id number] #### [facility]/[place] [address] Bench Shear Operator: Yuki Paul MD,PhD,NEPTALI Globulin (S) [Mass/Vol] 3.4 g/dL Normal 1.9-3.7 [facility] Comment on above: Performed By: #### 2 49, 6399, 7832, 4942, 375, 5810, 11168, 07850, 4420, 57045, 351, %47903, 809, 353, 905 #### [place] [address] Bench Shear Operator: Lc Masters MD #### [id number] #### [facility]/[place] [address] Bench Shear Operator: Yuki Paul MD,PhD,NEPTALI Glucose [Mass/Vol] 95 mg/dL Normal 65-99 [facility] Comment on above: Result Comment: Fasting reference interval Performed By: #### 2 49, 6399, 7832, 4942, 375, 5810, 06267, 83884, 4420, 49822, 351, %02776, 809, 353, 905 #### [place] [address] Bench Shear Operator: Lc Masters MD #### [id number] #### [facility], [address] [place] Bench Shear Operator: Yuki Paul MD,PhD,NEPTALI Potassium [Moles/Vol] 4.9 mmol/L Normal 3.5-5.3 On License Of [facility] Comment on above: Performed By: #### 2 49, 6399, 7832, 4942, 375, 5810, 42485, 92285, 4420, 21028, 351, %10923, 809, 353, 905 #### [facility] [address], [address] [place] [address] Bench Shear Operator: Lc Masters MD #### [id number] #### [facility] [facility], [address] [place] [address] Bench Shear Operator: Yuki Paul MD,PhD,NEPTALI Protein [Mass/Vol] 7.6 g/dL Normal 6.1-8.1 [facility] Comment on above: Performed By: #### 2 49, 6399, 7832, 4942, 375, 5810, 34924, 17673, 4420, 22938, 351, %82907, 809, 353, 905 #### [facility] [place] [address] Bench Shear Operator: Lc Masters MD #### [id number] #### [facility], [facility] [place] Bench Shear Operator: Yuki Paul MD,PhD,NEPTALI Sodium [Moles/Vol] 138 mmol/L Normal 135-146 [facility] Comment on above: Performed By: #### 2 49, 6399, 7832, 4942, 375, 5810, 01046, 71763, 4420, 19713, 351, %10167, 809, 353, 905 #### [facility] [place] [address] [place] [address] Bench Shear Operator: Lc Masters MD #### [id number] #### [facility] [place], [address] [facility] [place] Bench Shear Operator: Yuki Paul MD,PhD,NEPTALI Urea nitrogen [Mass/Vol] 17 mg/dL Normal 7-25 [facility] Comment on above: Performed By: #### 2 49, 6399, 7832, 4942, 375, 5810, 38283, 52221, 4420, 59338, 351, %30680, 809, 353, 905 #### [facility] [place] [address] Bench Shear Operator: Lc Masters MD #### [id number] #### [facility], [address] [place] Bench Shear Operator: Yuki Paul MD,PhD,NEPTALI LIPID PANEL, [facility] 07-2 Cholesterol [Mass/Vol] 183 mg/dL Normal <200 [facility] Comment on above: Performed By: #### 2 49, 6399, 7832, 4942, 375, 5810, 20156, 04319, 4420, 70305, 351, %61427, 809, 353, 905 #### [facility] [place] [address] Bench Shear Operator: Lc Masters MD #### [id number] #### [facility], [address] [facility] [place] Bench Shear Operator: Yuki Paul MD,PhD,NEPTALI Cholesterol in HDL [Mass/Vol] 53 mg/dL Normal > OR = 50 [facility] Comment on above: Performed By: #### 2 49, 6399, 7832, 4942, 375, 5810, 99676, 11183, 4420, 60648, 351, %90889, 809, 353, 905 #### [facility] [address], [address] [place] [address] Bench Shear Operator: Lc Masters MD #### [id number] #### [facility], [address] [place] [address] Bench Shear Operator: Yuki Paul MD,PhD,NEPTALI Cholesterol in LDL [Mass/Vol] 105 mg/dL High [facility] Comment on above: Result Comment: Refe [...] LDL-C. Maximiliano VAZQUEZ et al. ABBIE. 2013;310(19): 4253-7612 (http://education.Prime Focus/faq/OTO621) Performed By: #### 2 49, 6399, 7832, 4942, 375, 5810, 07068, 52905, 4420, 18334, 351, %22582, 809, 353, 905 #### [facility] [address], [address] [place] [address] Bench Shear Operator: Lc Masters MD #### [id number] #### [facility], [address] [place] [address] Bench Shear Operator: Yuki Paul MD,PhD,NEPTALI Cholesterol.total/Chol esterol in HDL [Mass ratio] 3.5 {ratio} Normal <5.0 [facility] Comment on above: Performed By: #### 2 49, 6399, 7832, 4942, 375, 5810, 76164, 48340, 4420, 73208, 351, %33058, 809, 353, 905 #### [facility] [address], [address] [place] [address] Bench Shear Operator: Lc Masters MD #### [id number] #### [facility], [address] [place] [address] Bench Shear Operator: Yuki Paul MD,PhD,NEPTALI NON HDL CHOLESTEROL 130 mg/dL (calc) High <130 [facility] Comment on above: Result Comment: For patients with diabetes plus 1 major ASCVD risk factor, treating to a non-HDL-C goal of <100 mg/dL (LDL-C of <70 mg/dL) is considered a therapeutic option. Performed By: #### 2 49, 6399, 7832, 4942, 375, 5810, 82298, 49116, 4420, 91547, 351, %36318, 809, 353, 905 #### [place] [address] Bench Shear Operator: Lc Masters MD #### [id number] #### [facility], [address] [place], [place] Bench Shear Operator: Yuki Paul MD,PhD,NEPTALI Triglyceride [Mass/Vol] 136 mg/dL Normal <150 [facility] Comment on above: Performed By: #### 2 49, 6399, 7832, 4942, 375, 5810, 82867, 35347, 4420, 88410, 351, %76567, 809, 353, 905 #### [facility] [place] [address] Bench Shear Operator: Lc Masters MD #### [id number] #### [facility], [address] [place] [address] Bench Shear Operator: Yuki Paul MD,PhD,NEPTALI Laboratory - Chemistry and C hemistry - challengeon 06-24-2024 Albumin [Mass/Vol] 4.2 g/dL Normal 3.6 - 5.1 g/dL [facility] Albumin/Globulin [Mass ratio] 1.2 {ratio} Normal 1.0 - 2.5 [facility], [facility]. ALP [Catalytic activity/Vol] 66 U/L Normal 37 - 153 U/L [facility], [facility]. ALT [Catalytic activity/Vol] 13 U/L Normal 6 - 29 U/L [facility], [facility] AST [Catalytic activity/Vol] 14 U/L Normal 10 - 35 U/L [facility], [facility] Bilirubin [Mass/Vol] 0.5 mg/dL Normal 0.2 - 1 .2 mg/dL [facility]; [facility], [facility] Calcium [Mass/Vol] 9.5 mg/dL Normal 8.6 - 10. 4 mg/dL [facility]; [facility], [facility] Chloride [Moles/Vol] 102 mmol/L Normal 98 - 11 0 mmol/L [facility], [facility]. Cholesterol [Mass/Vol] 183 mg/dL Normal [facility]; [facility], [facility] Cholesterol in HDL [Mass/Vol] 53 mg/dL Normal [facility]; [facility], [facility]. Cholesterol in LDL [Mass/Vol] 105 mg/dL Abnormal [facility]; [facility], [facility] CO2 [Moles/Vol] 27 mmol/L Normal 20 - 32 mmol/L [facility], [facility] Creatinine [Mass/Vol] 0.80 mg/dL Normal 0.50 - 1.03 mg/dL [facility], [facility]. GFR/1.73 sq M.predicted among non-blacks MDRD (S/P/Bld) [Vol rate/Area] 86 mL/min/{1.73_m2} Normal [facility], [facility].; [facility], [facility] Glucose [Mass/Vol] 95 mg/dL Normal 65 - 99 mg/dL [facility], [facility].; [facility], [facility] Potassium [Moles/Vol] 4.9 mmol/L Normal 3.5 - 5.3 mmol/L [facility]. Protein [Mass/Vol] 7.6 g/dL Normal 6.1 - 8.1 g/dL [facility], [facility]. Sodium [Moles/Vol] 138 mmol/L Normal 135 - 146 mmol/L [facility] [employer] [facility] Triglyceride [Mass/Vol] 136 mg/dL Normal [facility] [employer] [facility] Urea nitrogen [Mass/Vol] 17 mg/dL Normal 7 - 25 mg/dL [facility].; [employer] [facility] No Panel Informationon 06-24 BUN/CREATININE RATIO SEE NOTE: Normal 6 - 22 [facility].; [employer] [facility]. CHOL/HDLC RATIO 3.5 Normal [facility]; [employer] [facility]. GLOBULIN 3.4 Normal 1.9 - 3.7 [facility].; [employer] [facility]. NON HDL CHOLESTEROL 130 Abnormal [facility].; [employer] [facility]. LIZ SCREEN, IFA, W/REFL TITE R AND PATTERNon 06-15-2024 LIZ SCREEN, IFA Positive Abnormal NEGATIVE [facility] Comment on above: Result Comment: LIZ IFA is a first line screen for detecting the presence of up to approximately 150 autoantibodies in various autoimmune diseases. A positive LIZ IFA result is suggestive of autoimmune disease and reflexes to titer and pattern. Further laboratory testing may be considered if clinically indicated. For additional information, please refer to http://education.Plexx.2sms/faq/QVQ062 (This link is being provided for informational/ educational purposes only.) Performed By: #### 2 49, 6399, 7832, 4942, 375, 5810, 04066, 60943, 4420, 91176, 351, %36988, 809, 353, 905 #### [facility] [address] [facility], [address] [place] [address] Bench Shear Operator: Lc Masters MD #### [id number] #### [facility], [address] [place] [address] Bench Shear Operator: Yuki Paul MD,PhD,NEPTALI ANTINUCLEAR ANTIBODIES TITER AND PATTERNon 06-15-2024 LIZ PATTERN Nuclear, Homogeneous Abnormal [facility] Comment on above: Result Comment: Homo geneous pattern is associated with systemic lupus erythematosus (SLE), drug-induced lupus and juvenile idiopathic arthritis. AC-1: Homogeneous International Consensus on LIZ Patterns (https://doi.org/10.1515/xsez-9010-9324) Performed By: #### 2 49, 6399, 7832, 4942, 375, 5810, 53159, 78455, 4420, 43661, 351, %55595, 809, 353, 905 #### [facility] [place] [id number] Bench Shear Operator: Lc Masters MD #### [id number] #### [facility], [address] [place] [address] Bench Shear Operator: Yuki Paul MD,PhD,NEPTALI LIZ PATTERN Nuclear, Speckled Abnormal [facility] Comment on above: Result Comment: Spec kled pattern is associated with mixed connective tissue disease (MCTD), systemic lupus erythematosus (SLE), Sjogren's syndrome, dermatomyositis, and systemic sclerosis/polymyositis overlap. AC-2,4,5,29: Speckled International Consensus on LIZ Patterns (https://doi.org/10.1515/ufoq-3289-2757) Performed By: #### 2 49, 6399, 7832, 4942, 375, 5810, 13529, 66919, 4420, 34255, 351, %24826, 809, 353, 905 #### [facility] [address], [address] [place] [address] Bench Shear Operator: Lc Masters MD #### [id number] #### [facility], [address] [place] [address] Bench Shear Operator: Yuki Paul MD,PhD,NEPTALI LIZ TITER 1:320 High [facility] Comment on above: Result Comment: Refe rence Range <1:40 Negative 1:40-1:80 Low Antibody Level >1:80 Elevated Antibody Level Performed By: #### 2 49, 6399, 7832, 4942, 375, 5810, 47354, 35546, 4420, 69199, 351, %94971, 809, 353, 905 #### [facility] [place] [address] Bench Shear Operator: Lc Masters MD #### [id number] #### [facility], [address] [place], [place] [phone] Bench Shear Operator: Yuki Paul MD,PhD,NEPTALI C-REACTIVE PROTEINon 024 CRP [Mass/Vol] 32.4 mg/L High <8.0 [facility] Comment on above: Performed By: #### 2 49, 6399, 7832, 4942, 375, 5810, 91648, 90182, 4420, 27612, 351, %10758, 809, 353, 905 #### [facility] [place] [address] Bench Shear Operator: Lc Masters MD #### [id number] #### [facility], [address] [place] [address] Bench Shear Operator: Yuki Paul MD,PhD,NEPTALI CBC (INCLUDES DIFF/PLT)on Basophils (Bld) [#/Vol] 0 10*3/uL Normal 0-200 [facility] Comment on above: Performed By: #### 2 49, 6399, 7832, 4942, 375, 5810, 13754, 17111, 4420, 98012, 351, %69232, 809, 353, 905 #### [facility] [place] [address] Bench Shear Operator: Lc Masters MD #### [id number] #### [facility], [facility] [place] [phone] Bench Shear Operator: Yuki Paul MD,PhD,NEPTALI Basophils/100 WBC (Bld) 0.0 % Normal [facility] Comment on above: Performed By: #### 2 49, 6399, 7832, 4942, 375, 5810, 31904, 95162, 4420, 01139, 351, %84563, 809, 353, 905 #### [facility] [address], [address] [place] [address] Bench Shear Operator: Lc Masters MD #### [id number] #### [facility], [facility] [place] [phone] Bench Shear Operator: Yuki Paul MD,PhD,NEPTALI Eosinophils (Bld) [#/Vol] 0 10*3/uL Low 15-500 [facility] Comment on above: Performed By: #### 2 49, 6399, 7832, 4942, 375, 5810, 59895, 27968, 4420, 42540, 351, %84439, 809, 353, 905 #### [facility] [address], [address] [place] [address] Bench Shear Operator: Lc Masters MD #### [id number] #### [facility], [facility] [place] [phone] Bench Shear Operator: Yuki Paul MD,PhD,NEPTALI Eosinophils/100 WBC (Bld) 0.0 % Normal [facility] Comment on above: Performed By: #### 2 49, 6399, 7832, 4942, 375, 5810, 56327, 86423, 4420, 40648, 351, %55819, 809, 353, 905 #### [facility] [address], [address] [place] [address] Bench Shear Operator: Lc Masters MD #### [id number] #### [facility], [address] [place], [place] [address] Bench Shear Operator: Yuki Paul MD,PhD,NEPTALI Erythrocyte distribution width (RBC) [Ratio] 15.1 % High 11.0-15.0 [facility] Comment on above: Performed By: #### 2 49, 6399, 7832, 4942, 375, 5810, 81509, 91346, 4420, 32966, 351, %72797, 809, 353, 905 #### [facility] [address], [address] [place] [address] Bench Shear Operator: Lc Masters MD #### [id number] #### [facility]/[place] [phone] Bench Shear Operator: Yuki Paul MD,PhD,NEPTALI Hematocrit (Bld) [Volume fraction] 41.6 % Normal 35.0-45.0 [facility] Comment on above: Performed By: #### 2 49, 6399, 7832, 4942, 375, 5810, 77330, 24270, 4420, 95440, 351, %76147, 809, 353, 905 #### [facility] [address], [address] [place] [address] Bench Shear Operator: Lc Masters MD #### [id number] #### [facility], [facility] [place] [phone] Bench Shear Operator: Yuki Paul MD,PhD,NEPTALI Hemoglobin (Bld) [Mass/Vol] 13.4 g/dL Normal 11.7-15.5 [facility] Comment on above: Performed By: #### 2 49, 6399, 7832, 4942, 375, 5810, 90218, 78940, 4420, 29777, 351, %80236, 809, 353, 905 #### [facility] of [place] [address] Bench Shear Operator: Lc Masters MD #### [id number] #### [facility], [address] [place], [place] [id number] Bench Shear Operator: Yuki Paul MD,PhD,NEPTALI Lymphocytes (Bld) [#/Vol] 1.346 10*3/uL Normal 850-3900 [facility] Comment on above: Performed By: #### 2 49, 6399, 7832, 4942, 375, 5810, 97914, 43064, 4420, 34083, 351, %74340, 809, 353, 905 #### [facility] [place] [address] Bench Shear Operator: Lc Masters MD #### [id number] #### [facility], [address] [place], [place] [address] Bench Shear Operator: Yuki Paul MD,PhD,NEPTALI Lymphocytes/100 WBC (Bld) 19.5 % Normal [facility] Comment on above: Performed By: #### 2 49, 6399, 7832, 4942, 375, 5810, 60282, 57641, 4420, 36071, 351, %57606, 809, 353, 905 #### [facility] [place] [address] Bench Shear Operator: Lc Masters MD #### [id number] #### [facility], [facility] [place] [address] Bench Shear Operator: Yuki Paul MD,PhD,NEPTALI MCH (RBC) [Entitic mass] 27.7 pg Normal 27.0-33.0 [facility] Comment on above: Performed By: #### 2 49, 6399, 7832, 4942, 375, 5810, 69573, 92775, 4420, 29489, 351, %32489, 809, 353, 905 #### [facility] [place] [address] Bench Shear Operator: Lc Masters MD #### [id number] #### [facility], [address] [place] [address] Bench Shear Operator: Yuki Paul MD,PhD,NEPTALI MCHC (RBC) [Mass/Vol] 32.2 g/dL Normal 32.0-36.0 On License [facility] Comment on above: Performed By: #### 2 49, 6399, 7832, 4942, 375, 5810, 23807, 91416, 4420, 26392, 351, %35559, 809, 353, 905 #### [facility] [address] [place] [address] Bench Shear Operator: Lc Masters MD #### [id number] #### [facility], [address] [place] [address] Bench Shear Operator: Yuki Paul MD,PhD,NEPTALI MCV (RBC) [Entitic vol] 86.1 fL Normal 80.0-100.0 [facility] Comment on above: Performed By: #### 2 49, 6399, 7832, 4942, 375, 5810, 40390, 24194, 4420, 79662, 351, %88048, 809, 353, 905 #### [facility] [place] [address] [place] , [address] [place] [address] Bench Shear Operator: Lc Masters MD #### [id number] #### [facility]/[address] Bench Shear Operator: Yuki Paul MD,PhD,NEPTALI Monocytes (Bld) [#/Vol] 0.538 10*3/uL Normal 200-950 [facility] Comment on above: Performed By: #### 2 49, 6399, 7832, 4942, 375, 5810, 13684, 59089, 4420, 30212, 351, %12344, 809, 353, 905 #### [facility] [address], [address] [place] [address] Bench Shear Operator: Lc Masters MD #### [id number] #### [facility], [facility] [place] [address] Bench Shear Operator: Yuki Paul MD,PhD,NEPTALI Monocytes/100 WBC (Bld) 7.8 % Normal [facility] Comment on above: Performed By: #### 2 49, 6399, 7832, 4942, 375, 5810, 65414, 91865, 4420, 64034, 351, %10381, 809, 353, 905 #### [facility] [place] [address] Bench Shear Operator: Lc Masters MD #### [id number] #### [facility], [facility] [place] [address] Bench Shear Operator: Yuki Paul MD,PhD,NEPTALI Neutrophils (Bld) [#/Vol] 5.016 10*3/uL Normal 3018-3017 [facility] Comment on above: Performed By: #### 2 49, 6399, 7832, 4942, 375, 5810, 45294, 12134, 4420, 18524, 351, %12894, 809, 353, 905 #### [facility] of [place] [address] Bench Shear Operator: Lc Masters MD #### [id number] #### [facility], [address] [place] [id number] Bench Shear Operator: Yuki Paul MD,PhD,NEPTALI Neutrophils/100 WBC (Bld) 72.7 % Normal [facility] Comment on above: Performed By: #### 2 49, 6399, 7832, 4942, 375, 5810, 08994, 54328, 4420, 89946, 351, %38571, 809, 353, 905 #### [facility] [address], [address] [place] [address] Bench Shear Operator: Lc Masters MD #### [id number] #### [facility], [facility] [place] Bench Shear Operator: Yuki Paul MD,PhD,NEPTALI Platelet mean volume (Bld) [Entitic vol] 10.0 fL Normal 7.5-12.5 [facility] Comment on above: Performed By: #### 2 49, 6399, 7832, 4942, 375, 5810, 55497, 73251, 4420, 93037, 351, %61010, 809, 353, 905 #### [facility] [place] [address] Bench Shear Operator: Lc Masters MD #### [id number] #### [facility], [facility] [place] Bench Shear Operator: Yuki Paul MD,PhD,NEPTALI Platelets (Bld) [#/Vol] 243 10*3/uL Normal 140-400 [facility] Comment on above: Performed By: #### 2 49, 6399, 7832, 4942, 375, 5810, 62988, 66296, 4420, 27129, 351, %54166, 809, 353, 905 #### [facility] [place] [address] Bench Shear Operator: Lc Masters MD #### [id number] #### [facility], [address] [place] Bench Shear Operator: Yuki Paul MD,PhD,NEPTALI RBC (Bld) [#/Vol] 4.83 10*6/uL Normal 3.80-5.10 [facility] Comment on above: Performed By: #### 2 49, 6399, 7832, 4942, 375, 5810, 67994, 45477, 4420, 19544, 351, %67696, 809, 353, 905 #### [facility] [place] [address] [place] , [address] [place] [address] Bench Shear Operator: Lc Masters MD #### [id number] #### [facility], [address] [place] [address] Bench Shear Operator: Yuki Paul MD,PhD,NEPTALI WBC (Bld) [#/Vol] 6.9 10*3/uL Normal 3.8-10.8 [facility] Comment on above: Performed By: #### 2 49, 6399, 7832, 4942, 375, 5810, 75300, 20322, 4420, 33128, 351, %12139, 809, 353, 905 #### [facility] [place] [address] [place] , [address] [place] [address] Bench Shear Operator: Lc Masters MD #### [id number] #### [facility], [address] [place] [address] Bench Shear Operator: Yuki Paul MD,PhD,NEPTALI COMPREHENSIVE METABOLIC PANE [facility] 06-15-2024 Albumin [Mass/Vol] 4.5 g/dL Normal 3.6-5.1 [facility] Comment on above: Performed By: #### 2 49, 6399, 7832, 4942, 375, 5810, 20724, 34316, 4420, 91468, 351, %43461, 809, 353, 905 #### [facility] [place] [address], [address] [place] [address] Bench Shear Operator: Lc Masters MD #### [id number] #### [facility], [address] [place], [place] [phone] Bench Shear Operator: Yuki Paul MD,PhD,NEPTALI Albumin/Globulin [Mass ratio] 1.2 {ratio} Normal 1.0-2.5 [facility] Comment on above: Performed By: #### 2 49, 6399, 7832, 4942, 375, 5810, 21843, 42793, 4420, 21680, 351, %90452, 809, 353, 905 #### [facility] [address], [address] [place] [address] Bench Shear Operator: Lc Masters MD #### [id number] #### [facility], [address] [place], [place] [address] Bench Shear Operator: Yuki Paul MD,PhD,NEPTALI ALP [Catalytic activity/Vol] 76 U/L Normal 37-153 [facility] Comment on above: Performed By: #### 2 49, 6399, 7832, 4942, 375, 5810, 56296, 35423, 4420, 31409, 351, %79553, 809, 353, 905 #### [facility] [address], [address] [place] [address] Bench Shear Operator: Lc Mastesr MD #### [id number] #### [facility], [address] [place], [place] [address] Bench Shear Operator: Yuki Paul MD,PhD,NEPTALI ALT [Catalytic activity/Vol] 12 U/L Normal 6-29 [facility] Comment on above: Performed By: #### 2 49, 6399, 7832, 4942, 375, 5810, 34201, 09452, 4420, 50365, 351, %63118, 809, 353, 905 #### [facility] [address], [address] [place] [address] Bench Shear Operator: Lc Masters MD #### [id number] #### [facility], [address] [place] [address] Bench Shear Operator: Yuki Paul MD,PhD,NEPTALI AST [Catalytic activity/Vol] 15 U/L Normal 10-35 [facility] Comment on above: Performed By: #### 2 49, 6399, 7832, 4942, 375, 5810, 53085, 12778, 4420, 89026, 351, %14227, 809, 353, 905 #### [facility] [address], [address] [place] [address] Bench Shear Operator: Lc Masters MD #### [id number] #### [facility], [address] [place] [address] Bench Shear Operator: Yuki Paul MD,PhD,NEPTALI Bilirubin [Mass/Vol] 0.4 mg/dL Normal 0.2-1.2 [facility] Comment on above: Performed By: #### 2 49, 6399, 7832, 4942, 375, 5810, 10593, 45072, 4420, 59992, 351, %75321, 809, 353, 905 #### [facility] [address], [address] [place] [address] Bench Shear Operator: Lc Masters MD #### [id number] #### [facility], [address] [address] Bench Shear Operator: Yuki Paul MD,PhD,NEPTALI BUN/CREATININE RATIO SEE NOTE: Normal 6-22 [facility] Comment on above: Result Comment: Not Reported: BUN and Creatinine are within reference range. Performed By: #### 2 49, 6399, 7832, 4942, 375, 5810, 33110, 34671, 4420, 34401, 351, %62243, 809, 353, 905 #### [facility] [address], [address] [place] [address] Bench Shear Operator: Lc Masters MD #### [id number] #### [facility], [address] [place], [place] [address] Bench Shear Operator: Yuki Paul MD,PhD,NEPTALI Calcium [Mass/Vol] 10.0 mg/dL Normal 8.6-10.4 [facility] Comment on above: Performed By: #### 2 49, 6399, 7832, 4942, 375, 5810, 63967, 58097, 4420, 57341, 351, %76127, 809, 353, 905 #### [facility] [address] [address] Bench Shear Operator: Lc Masters MD #### [id number] #### [facility], [address] [place], [place] [id number] Bench Shear Operator: Yuki Paul MD,PhD,NEPTALI Chloride [Moles/Vol] 101 mmol/L Normal 98-110 [facility] Comment on above: Performed By: #### 2 49, 6399, 7832, 4942, 375, 5810, 51345, 87904, 4420, 31792, 351, %66846, 809, 353, 905 #### [facility] [address] [address] Bench Shear Operator: Lc Masters MD #### [id number] #### [facility], [facility] [address] [id number] Bench Shear Operator: Yuki Paul MD,PhD,NEPTALI CO2 [Moles/Vol] 25 mmol/L Normal 20-32 [facility] Comment on above: Performed By: #### 2 49, 6399, 7832, 4942, 375, 5810, 27061, 15479, 4420, 65195, 351, %16916, 809, 353, 905 #### [facility] [place] [address] [address] Bench Shear Operator: Lc Masters MD #### [id number] #### [facility], [address] [place] [address] Bench Shear Operator: Yuki Paul MD,PhD,NEPTALI Creatinine [Mass/Vol] 0.89 mg/dL Normal 0.50-1.03 [facility] Comment on above: Performed By: #### 2 49, 6399, 7832, 4942, 375, 5810, 94731, 61938, 4420, 67912, 351, %04053, 809, 353, 905 #### [facility] [address] [address] Bench Shear Operator: Lc Masters MD #### [id number] #### [facility], [address] [place] [address] Bench Shear Operator: Yuki Paul MD,PhD,NEPTALI GFR/1.73 sq M.predicted among non-blacks MDRD (S/P/Bld) [Vol rate/Area] 76 mL/min/{1.73_m2} Normal > OR = 60 [facility] Comment on above: Performed By: #### 2 49, 6399, 7832, 4942, 375, 5810, 66811, 18548, 4420, 30970, 351, %35765, 809, 353, 905 #### [facility] [address] [address] Bench Shear Operator: Lc Masters MD #### [id number] #### [facility], [address] [place] [address] Bench Shear Operator: Yuki Paul MD,PhD,NEPTALI Globulin (S) [Mass/Vol] 3.7 g/dL Normal 1.9-3.7 [facility] Comment on above: Performed By: #### 2 49, 6399, 7832, 4942, 375, 5810, 51872, 47019, 4420, 99664, 351, %88787, 809, 353, 905 #### [place] [address] Bench Shear Operator: Lc Masters MD #### [id number] #### [facility], [address] [place] [address] Bench Shear Operator: Yuki Paul MD,PhD,NEPTALI Glucose [Mass/Vol] 110 mg/dL High 65-99 [facility] Comment on above: Result Comment: Fasting reference interval For someone without known diabetes, a glucose value between 100 and 125 mg/dL is consistent with prediabetes and should be confirmed with a follow-up test. Performed By: #### 2 49, 6399, 7832, 4942, 375, 5810, 98888, 56114, 4420, 60953, 351, %47487, 809, 353, 905 #### [place] [address] Bench Shear Operator: Lc Masters MD #### [id number] #### [facility], [address] [place] [address] Bench Shear Operator: Yuki Paul MD,PhD,NEPTALI Potassium [Moles/Vol] 4.7 mmol/L Normal 3.5-5.3 [facility] Comment on above: Performed By: #### 2 49, 6399, 7832, 4942, 375, 5810, 64021, 80979, 4420, 51482, 351, %91293, 809, 353, 905 #### [facility] [place] [address] Bench Shear Operator: Lc Masters MD #### [id number] #### [facility], [address] [place] [address] Bench Shear Operator: Yuki Paul MD,PhD,NEPTALI Protein [Mass/Vol] 8.2 g/dL High 6.1-8.1 [facility] Comment on above: Performed By: #### 2 49, 6399, 7832, 4942, 375, 5810, 56494, 29988, 4420, 69189, 351, %77661, 809, 353, 905 #### [facility] of [address], [address] [place] [address] Bench Shear Operator: Lc Masters MD #### [id number] #### [facility] [place], [address] [facility] [address] Bench Shear Operator: Yuki Paul MD,PhD,NEPTALI Sodium [Moles/Vol] 136 mmol/L Normal 135-146 [facility] Comment on above: Performed By: #### 2 49, 6399, 7832, 4942, 375, 5810, 32472, 99078, 4420, 61602, 351, %33488, 809, 353, 905 #### [facility] of [address], [address] [place] [address] Bench Shear Operator: Lc Masters MD #### [id number] #### [facility] [address] [place] [address] Bench Shear Operator: Yuki Paul MD,PhD,NEPTALI Urea nitrogen [Mass/Vol] 21 mg/dL Normal 7-25 [facility] Comment on above: Performed By: #### 2 49, 6399, 7832, 4942, 375, 5810, 03502, 11843, 4420, 66638, 351, %56728, 809, 353, 905 #### [facility] [address], [address] [place] [address] Bench Shear Operator: Lc Masters MD #### [id number] #### [facility], [address] [facility] [address] Bench Shear Operator: Yuki Paul MD,PhD,NEPTALI HEMOGLOBIN A1con 06-15-2024 HEMOGLOBIN [...] change in test platforms from the [employer] to the Jenna vasyl c503 may have shifted HbA1c results compared to historical results. Based on laboratory validation testing conducted at [facility], the Jenna platform relative to the Tirado [...] 2 49, 6399, 7832, 4942, 375, 5810, 04452, 66582, 4420, 79109, 351, %02175, 809, 353, 905 #### [facility] [address], [address] [place] [address] Bench Shear Operator: Lc Masters MD #### [id number] #### [facility], [address] [place] [address] Bench Shear Operator: Yuki Paul MD,PhD,NEPTALI SED RATE BY MODIFIED WESTERG RENkatherin 06-15-2024 SED RATE BY MODIFIED WESTERGREN 31 mm/h High < OR = 30 [facility] Comment on above: Performed By: #### 2 49, 6399, 7832, 4942, 375, 5810, 70324, 71796, 4420, 61657, 351, %81087, 809, 353, 905 #### [facility] [address], [address] [place] [address] Bench Shear Operator: Lc Masters MD #### [id number] #### [facility], [address] [place] [address] Bench Shear Operator: Yuki Paul MD,PhD,NEPTALI TSH W/REFLEX TO FT4on 2023 TSH W/REFLEX TO FT4 2.78 mIU/L Normal 0.40-4.50 [facility] Comment on above: Performed By: #### 2 49, 6399, 7832, 4942, 375, 5810, 76401, 85915, 4420, 78595, 351, %00995, 809, 353, 905 #### [facility] [address] [address] Bench Shear Operator: Lc Masters MD #### [id number] #### [facility], [address] [place] [address] Bench Shear Operator: Yuki Paul MD,PhD,NEPTALI URIC ACIDon 06-15-2024 Urate [Mass/Vol] 6.9 mg/dL Normal 2.5-7.0 [facility] Comment on above: Result Comment: Ther apeutic target for gout patients: <6.0 mg/dL Performed By: #### 2 49, 6399, 7832, 4942, 375, 5810, 78743, 53864, 4420, 83098, 351, %20208, 809, 353, 905 #### [facility] [address] [address] Bench Shear Operator: Lc Masters MD #### [id number] #### [facility], [address] [place] [address] Bench Shear Operator: Yuki Paul MD,PhD,NEPTALI VITAMIN B12on 06-15-2024 Cobalamin [...] 2 49, 6399, 7832, 4942, 375, 5810, 70391, 84308, 4420, 32784, 351, %68027, 809, 353, 905 #### [facility] [address], [address] [place] [address] Bench Shear Operator: Lc Masters MD #### [id number] #### [facility], [address] [place] [address] Bench Shear Operator: Yuki Paul MD,PhD,NEPTALI Laboratory - Chemistry and C hemistry - challengeon 06-13-2024 Albumin [Mass/Vol] 4.5 g/dL Normal 3.6 - 5.1 g/dL [facility] [employer] Albumin/Globulin [Mass ratio] 1.2 {ratio} Normal 1.0 - 2.5 [facility] Chumby, [facility].; [employer] ALP [Catalytic activity/Vol] 76 U/L Normal 37 - 153 U/L [facility], [facility].; [employer] ALT [Catalytic activity/Vol] 12 U/L Normal 6 - 29 U/L [employer], [facility].; [employer] AST [Catalytic activity/Vol] 15 U/L Normal 10 - 35 U/L [employer], [facility].; [employer] Bilirubin [Mass/Vol] 0.4 mg/dL Normal 0.2 - 1 .2 mg/dL [employer], [facility].; [employer] Calcium [Mass/Vol] 10.0 mg/dL Normal 8.6 - 10. 4 mg/dL [facility], [facility].; [facility], [facility]. Chloride [Moles/Vol] 101 mmol/L Normal 98 - 11 0 mmol/L [facility], [facility]. CO2 [Moles/Vol] 25 mmol/L Normal 20 - 32 mmol/L [facility], [facility].; [facility], [facility]. Cobalamin (Vitamin B12) [Mass/Vol] 339 pg/mL Normal 200 - 1100 pg/mL [facility].; [facility], [facility]. Creatinine [Mass/Vol] 0.89 mg/dL Normal 0.50 - 1.03 mg/dL [facility], [facility].; [facility], [facility]. CRP [Mass/Vol] 32.4 mg/L Abnormal [facility].; [facility], [facility]. GFR/1.73 sq M.predicted among non-blacks MDRD (S/P/Bld) [Vol rate/Area] 76 mL/min/{1.73_m2} Normal [facility], [facility].; [facility], [facility]. Glucose [Mass/Vol] 110 mg/dL Abnormal 65 - 99 mg/dL [facility], [facility].; [facility], [facility]. Potassium [Moles/Vol] 4.7 mmol/L Normal 3.5 - 5.3 mmol/L [facility].; [facility], [facility]. Protein [Mass/Vol] 8.2 g/dL Abnormal 6.1 - 8.1 g/dL [facility].; [facility], [facility]. Sodium [Moles/Vol] 136 mmol/L Normal 135 - 146 mmol/L [facility], [facility].; [employer] [facility], [facility]. Urate [Mass/Vol] 6.9 mg/dL Normal 2.5 - 7.0 mg/dL [facility].; [employer] [facility], [facility]. Urea nitrogen [Mass/Vol] 21 mg/dL Normal 7 - 25 mg/dL [facility], [facility].; [facility]um[facility], [facility]. Laboratory - Hematology and Cell countson 06-13-2024 Basophils (Bld) [#/Vol] 0 10*3/uL Normal 0 - 200 {cells/uL} [facility].; [facility]. Basophils/100 WBC (Bld) 0.0 % Normal [facility], [facility]. Eosinophils (Bld) [#/Vol] 0 10*3/uL Abnormal 15 - 500 {cells/uL} [facility], [facility].; [facility], [facility]. Eosinophils/100 WBC (Bld) 0.0 % Normal [facility].; [facility], [facility]. Erythrocyte distribution width (RBC) [Ratio] 15.1 % Abnormal 11.0 - 15.0 % [facility].; [employer] [facility], [facility]. HbA1c (Bld) [Mass fraction] 6.1 % Abnormal [facility].; [facility], [facility] Hematocrit (Bld) [Volume fraction] 41.6 % Normal 35.0 - 45.0 % [facility], [facility].; [facility], [facility] Hemoglobin (Bld) [Mass/Vol] 13.4 g/dL Normal 11.7 - 15.5 g/dL [facility].; [facility], [facility]. Lymphocytes (Bld) [#/Vol] 1.346 10*3/uL Normal 850 - 3900 {cells/uL} [facility].; [facility], [facility]. Lymphocytes/100 WBC (Bld) 19.5 % Normal [facility].; [facility]umby, [facility]. MCH (RBC) [Entitic mass] 27.7 pg Normal 27.0 - 33.0 pg [facility].; [facility] Chumby, [facility]. MCHC (RBC) [Mass/Vol] 32.2 g/dL Normal 32.0 - 36.0 g/dL [facility], [facility].; [employer] [facility], [facility]. MCV (RBC) [Entitic vol] 86.1 fL Normal 80.0 - 100.0 fL [facility].; [employer] [facility], [facility]. Monocytes (Bld) [#/Vol] 0.538 10*3/uL Normal 200 - 950 {cells/uL} [facility].; [facility], [facility]. Monocytes/100 WBC (Bld) 7.8 % Normal [facility]; [facility], [facility] Neutrophils (Bld) [#/Vol] 5.016 10*3/uL Normal 1500 - 7800 {cells/uL} [facility]; [facility], [facility] Neutrophils/100 WBC (Bld) 72.7 % Normal [facility]; [facility], [facility] Platelet mean volume (Bld) [Entitic vol] 10.0 fL Normal 7.5 - 12.5 fL [facility]; [facility], [facility] Platelets (Bld) [#/Vol] 243 10*3/uL Normal 140 - 400 [facility]; [facility], [facility] RBC (Bld) [#/Vol] 4.83 10*6/uL Normal 3.80 - 5.1 0 {Million/uL} [facility], [facility]. WBC (Bld) [#/Vol] 6.9 10*3/uL Normal 3.8 - 10.8 [facility]; [facility] No Panel Informationon 06-13 LIZ PATTERN Nuclear, Homogeneous Abnormal [facility]; [facility], [facility] Work Phone: LIZ PATTERN Nuclear, Speckled Abnormal [facility]; [facility], [facility] Work Phone: LIZ SCREEN, IFA Positive Abnormal [facility]; [facility], [facility] LIZ TITER 1:320 Abnormal [facility]; [facility], [facility] Work Phone: BUN/CREATININE RATIO SEE NOTE: Normal 6 - 22 [facility].; [employer] [facility] GLOBULIN 3.7 Normal 1.9 - 3.7 [facility]; [facility], [facility] SED RATE BY MODIFIED WESTERGREN 31 mm/h Abnormal [facility]; [employer] [facility], [facility] TSH W/REFLEX TO FT4 2.78 {mIU/L} Normal 0.40 - 4 .50 {mIU/L} [facility], [facility]; [facility]. Culture, Blood (WB)on 2023 CUB No growth in 5 days. Normal [facility] Comment on above: Performed By: #### M 200.1000 ####[facility] [address] [place], [address] CUB No growth in 5 days. Normal [facility] Comment on above: Performed By: #### M 200.1000 ####[facility] [address] [place], [address] Basic Metabolic Profile (BMP )on 05-09-2024 BUN/CRE 16.3 RATIO Normal 10-20 [facility] Comment on above: Performed By: #### L 500.2500 ####[facility] [address] [place], [address] CA,Total 8.9 mg/dL Normal 8.5-10.1 [facility] Comment on above: Performed By: #### L 500.2500 ####[facility] [address] [place], [address] Chloride [Moles/Vol] 103 mmol/L Normal 98-107 [facility] Comment on above: Performed By: #### L 500.2500 ####[facility] [address] [place], [address] CO2 [Moles/Vol] 28.0 mmol/L Normal 21.0-32.0 [facility] Comment on above: Performed By: #### L 500.2500 ####[facility] [address] [place], [address] Creatinine [Mass/Vol] 0.74 mg/dL Normal 0.55-1.02 [facility] Comment on above: Result Comment: The validity of the calculated GFR GFRAA in patients over70 years has not been determined. Clinical correlation isessential. Performed By: #### L 500.2500 ####[facility] [address] [place], [address] ECRCL 164.91 ml/min Normal [facility] Comment on above: Performed By: #### L 500.2500 ####[facility] [address] [place], [address] EST GFR - AA 105 mL/min Normal >60 [facility] Comment on above: Result Comment: Afri can Anguillan GFR Calc Performed By: #### L 500.2500 ####[facility] [address] [place], [address] GAP 6 Normal 5-15 [facility] Comment on above: Performed By: #### L 500.2500 ####[facility] [address] [place], [address] GFR/1.73 sq M.predicted among non-blacks MDRD (S/P/Bld) [Vol rate/Area] 87 mL/min/{1.73_m2} Normal >60 [facility] Comment on above: Result Comment: Non- GFR Calc Performed By: #### L 500.2500 ####[facility] [address] [place], [address] Glucose [Mass/Vol] 109 mg/dL High 74-106 [facility] Comment on above: Result Comment: Fast ing Glucose result from 100 to 125 mg/dLsuggests IMPAIRED HOMEOSTASIS per A.D.A. criteria. Performed By: #### L 500.2500 ####[facility] [address] [place], [address] Potassium [Moles/Vol] 3.6 mmol/L Normal 3.5-5.1 [facility] Comment on above: Performed By: #### L 500.2500 ####[facility] [address] [place], [address] Sodium [Moles/Vol] 137 mmol/L Normal 136-145 [facility] Comment on above: Performed By: #### L 500.2500 ####[facility] [address] [place], [address] Urea nitrogen [Mass/Vol] 12 mg/dL Normal 7-18 [facility] Comment on above: Performed By: #### L 500.2500 ####[facility] [address] [place], [address] Basic Metabolic Profile (BMP )on 05-08-2024 BUN/CRE 12.9 RATIO Normal 10-20 [facility] Comment on above: Performed By: #### L 100.0100, L500.2500 ####[facility] [address] [place], [address] CA,Total 8.6 mg/dL Normal 8.5-10.1 [facility] Comment on above: Performed By: #### L 100.0100, L500.2500 ####[facility] [address] [place], [address] Chloride [Moles/Vol] 106 mmol/L Normal 98-107 [facility] Comment on above: Performed By: #### L 100.0100, L500.2500 ####[facility] [address] [place], [address] CO2 [Moles/Vol] 25.0 mmol/L Normal 21.0-32.0 [facility] Comment on above: Performed By: #### L 100.0100, L500.2500 ####[facility] [address] [place], [address] Creatinine [Mass/Vol] 0.77 mg/dL Normal 0.55-1.02 [facility] Comment on above: Result Comment: The validity of the calculated GFR GFRAA in patients over70 years has not been determined. Clinical correlation isessential. Performed By: #### L 100.0100, L500.2500 ####[facility] [address] [place], [address] ECRCL 158.49 ml/min Normal [facility] Comment on above: Performed By: #### L 100.0100, L500.2500 ####[facility] [address] [place], [address] EST GFR - AA 99 mL/min Normal >60 [facility] Comment on above: Result Comment: Afri can Anguillan GFR Calc Performed By: #### L 100.0100, L500.2500 ####[facility] [address] [place], [address] GAP 6 Normal 5-15 [facility] Comment on above: Performed By: #### L 100.0100, L500.2500 ####[facility] [address] [place], [address] GFR/1.73 sq M.predicted among non-blacks MDRD (S/P/Bld) [Vol rate/Area] 82 mL/min/{1.73_m2} Normal >60 [facility] Comment on above: Result Comment: Non- GFR Calc Performed By: #### L 100.0100, L500.2500 ####[facility] [address] [place], [address] Glucose [Mass/Vol] 110 mg/dL High 74-106 [facility] Comment on above: Result Comment: Fast ing Glucose result from 100 to 125 mg/dLsuggests IMPAIRED HOMEOSTASIS per A.D.A. criteria. Performed By: #### L 100.0100, L500.2500 ####[facility] [address] [place], [address] Potassium [Moles/Vol] 3.7 mmol/L Normal 3.5-5.1 [facility] Comment on above: Performed By: #### L 100.0100, L500.2500 ####[facility] [address] [place], [address] Sodium [Moles/Vol] 137 mmol/L Normal 136-145 [facility] Comment on above: Performed By: #### L 100.0100, L500.2500 ####[facility] [address] [place], [address] Urea nitrogen [Mass/Vol] 10 mg/dL Normal 7-18 [facility] Comment on above: Performed By: #### L 100.0100, L500.2500 ####[facility] [address] [place], [address] CBC W/Diff, Automatedon 06-0 9-2024 Absolute Lymph 0.70 X10 3/uL Low 0.83-4.51 [facility] Comment on above: Performed By: #### L 100.0100, L500.2500 ####[facility] [address] [place], [address] Absolute Neut 4.2 X10 3/uL Normal 2.0-7.7 [facility] Comment on above: Performed By: #### L 100.0100, L500.2500 ####[facility] [address] [place], [address] Basophils/100 WBC (Bld) 0.4 % Normal 0-1 [facility] Comment on above: Performed By: #### L 100.0100, L500.2500 ####[facility] [address] [place], [address] Eosinophils/100 WBC (Bld) 0.0 % Normal 0-5 [facility] Comment on above: Performed By: #### L 100.0100, L500.2500 ####[facility] [address] [place], [address] Erythrocyte distribution width (RBC) [Ratio] 15.1 % High 11.6-14.6 [facility] Comment on above: Performed By: #### L 100.0100, L500.2500 ####[facility] [address] [place], [address] Hematocrit (Bld) [Volume fraction] 36.0 % Low 37-47 [facility] Comment on above: Performed By: #### L 100.0100, L500.2500 ####[facility] [address] [place], [address] Hemoglobin (Bld) [Mass/Vol] 11.3 g/dL Low 12.0-15.0 [facility] Comment on above: Performed By: #### L 100.0100, L500.2500 ####[facility] [address] [place], [address] IG% 1.400 High 0.0-0.9 [facility] Comment on above: Result Comment: IG% - Immature Granulocytes (promyelocytes, myelocytes andmetamyelocytes) > 1% indicates that a LEFT SHIFT is Present. Performed By: #### L 100.0100, L500.2500 ####[facility] [address] [place], [address] Lymphocytes/100 WBC (Bld) 12.3 % Low 19-41 [facility] Comment on above: Performed By: #### L 100.0100, L500.2500 ####[facility] [address] [place], [address] MCH (RBC) [Entitic mass] 27.0 pg Normal 27.0-32.0 [facility] Comment on above: Performed By: #### L 100.0100, L500.2500 ####[facility] [address] [place], [address] MCHC (RBC) [Mass/Vol] 31.4 g/dL Low 32-36 [facility] Comment on above: Performed By: #### L 100.0100, L500.2500 ####[facility] [address] [place], [address] MCV (RBC) [Entitic vol] 86.1 fL Normal 81-99 [facility] Comment on above: Performed By: #### L 100.0100, L500.2500 ####[facility] [address] [place], [address] Monocytes/100 WBC (Bld) 12.6 % High 0-10 [facility] Comment on above: Performed By: #### L 100.0100, L500.2500 ####[facility] [address] [place], [address] Neutrophils/100 WBC (Bld) 73.3 % High 47-70 [facility] Comment on above: Performed By: #### L 100.0100, L500.2500 ####[facility] [address] [place], [address] Nucleated RBC (Bld) [#/Vol] 0 10*3/uL Normal 0-5 [facility] Comment on above: Performed By: #### L 100.0100, L500.2500 ####[facility] [address] [place], [address] Platelet mean volume (Bld) [Entitic vol] 9.6 fL Normal 6.2-12.0 [facility] Comment on above: Performed By: #### L 100.0100, L500.2500 ####[facility] [address] [place], [address] Platelets (Bld) [#/Vol] 148 10*3/uL Low 150-450 [facility] Comment on above: Performed By: #### L 100.0100, L500.2500 ####[facility] [address] [place], [address] RBC (Bld) [#/Vol] 4.18 10*6/uL Low 4.2-5.4 [facility] Comment on above: Performed By: #### L 100.0100, L500.2500 ####[facility] [address] [place], [address] RDW SD 47.4 fl High 35.1-43.9 [facility] Comment on above: Performed By: #### L 100.0100, L500.2500 ####[facility] [address] [place], [address] WBC (Bld) [#/Vol] 5.7 10*3/uL Normal 4.4-11.0 [facility] Comment on above: Performed By: #### L 100.0100, L500.2500 ####[facility] [address] [place], [address] Vancomycin, Trough Levelon 0 05-08-2024 VANCO, TROUGH 19.5 ug/mL High 5.0-15.0 [facility] Comment on above: Order Comment: Comme nts: Trough to be drawn 30 mins prior to scheduled [id number] Result Comment: VANC OMYCIN STANDARED DRUG THERAPY TROUGH LEVEL: 5.0 - 15.0 mg/LVANCOMYCIN HIGH INTENSITY THERAPY TROUGH LEVEL: 15.0 - 20.0 mg/LHigh Intensity therapy recommended for serious lifethreatening infections include:- Ovmechrmdl-Eagowliabgbd-Lkwygsdnh (Ventilator/Healtcare Associated)-SepsisPLEASE CONTACT PHARMACY SERVICES (#8258) FOR INTERPRETATIONOF RESULTS. Performed By: #### L 501.8820 ####[facility] [address] [place], [address] Basic Metabolic Profile (BMP )on 05-07-2024 BUN/CRE 14.8 RATIO Normal 10-20 [facility] Comment on above: Performed By: #### L 500.2500 ####[facility] [address] [place], [address] CA,Total 8.9 mg/dL Normal 8.5-10.1 [facility] Comment on above: Performed By: #### L 500.2500 ####[facility] [address] [place], [address] Chloride [Moles/Vol] 105 mmol/L Normal 98-107 [facility] Comment on above: Performed By: #### L 500.2500 ####[facility] [address] [place], [address] CO2 [Moles/Vol] 25.0 mmol/L Normal 21.0-32.0 [facility] Comment on above: Performed By: #### L 500.2500 ####[facility] [address] [place] [address] Creatinine [Mass/Vol] 0.81 mg/dL Normal 0.55-1.02 [facility] Comment on above: Result Comment: The validity of the calculated GFR GFRAA in patients over70 years has not been determined. Clinical correlation isessential. Performed By: #### L 500.2500 ####[facility] [address] [place] [address] ECRCL 150.66 ml/min Normal [facility] Comment on above: Performed By: #### L 500.2500 ####[facility] [address] [place], [address] EST GFR - AA 94 mL/min Normal >60 [facility] Comment on above: Result Comment: Afri can Anguillan GFR Calc Performed By: #### L 500.2500 ####[facility] [address] [place] [address] GAP 5 Normal 5-15 [facility] Comment on above: Performed By: #### L 500.2500 ####[facility] [address] [place], [address] GFR/1.73 sq M.predicted among non-blacks MDRD (S/P/Bld) [Vol rate/Area] 78 mL/min/{1.73_m2} Normal >60 [facility] Comment on above: Result Comment: Non- GFR Calc Performed By: #### L 500.2500 ####[facility] [address] [place], [address] Glucose [Mass/Vol] 111 mg/dL High 74-106 [facility] Comment on above: Result Comment: Fast ing Glucose result from 100 to 125 mg/dLsuggests IMPAIRED HOMEOSTASIS per A.D.A. criteria. Performed By: #### L 500.2500 ####[facility] [address] [place], [address] Potassium [Moles/Vol] 3.8 mmol/L Normal 3.5-5.1 [facility] Comment on above: Performed By: #### L 500.2500 ####[facility] [address] [place], [address] Sodium [Moles/Vol] 135 mmol/L Low 136-145 [facility] Comment on above: Performed By: #### L 500.2500 ####[facility] [address] [place], [address] Urea nitrogen [Mass/Vol] 12 mg/dL Normal 7-18 [facility] Comment on above: Performed By: #### L 500.2500 ####[facility] [address] [place], [address] Vancomycin, Trough Levelon 0 - VANCO, TROUGH 16.6 ug/mL High 5.0-15.0 [facility] Comment on above: Order Comment: 0900 Result Comment: VANC OMYCIN STANDARED DRUG THERAPY TROUGH LEVEL: 5.0 - 15.0 mg/LVANCOMYCIN HIGH INTENSITY THERAPY TROUGH LEVEL: 15.0 - 20.0 mg/LHigh Intensity therapy recommended for serious lifethreatening infections include:- Tvysjtsren-Tjdjmvbvmwgq-Cbchruriz (Ventilator/Healtcare Associated)-SepsisPLEASE CONTACT PHARMACY SERVICES (#5691) FOR INTERPRETATIONOF RESULTS. Performed By: #### L 501.8820 ####[facility] [address] [place], [address] Basic Metabolic Profile (BMP )on 05-06-2024 BUN/CRE 13.9 RATIO Normal 10-20 [facility] Comment on above: Performed By: #### L 100.0100, L500.2500 ####[facility] [address] [place], [address] CA,Total 8.9 mg/dL Normal 8.5-10.1 [facility] Comment on above: Performed By: #### L 100.0100, L500.2500 ####[facility] [address] [place], [address] Chloride [Moles/Vol] 105 mmol/L Normal 98-107 [facility] Comment on above: Performed By: #### L 100.0100, L500.2500 ####[facility] [address] [place], [address] CO2 [Moles/Vol] 22.0 mmol/L Normal 21.0-32.0 [facility] Comment on above: Performed By: #### L 100.0100, L500.2500 ####[facility] [address] [place], [address] Creatinine [Mass/Vol] 0.79 mg/dL Normal 0.55-1.02 [facility] Comment on above: Result Comment: The validity of the calculated GFR GFRAA in patients over70 years has not been determined. Clinical correlation isessential. Performed By: #### L 100.0100, L500.2500 ####[facility] [address] [place], [address] ECRCL 154.42 ml/min Normal [facility] Comment on above: Performed By: #### L 100.0100, L500.2500 ####[facility] [address] [place], [address] EST GFR - AA 97 mL/min Normal >60 [facility] Comment on above: Result Comment: Afri can Anguillan GFR Calc Performed By: #### L 100.0100, L500.2500 ####[facility] [address] [place], [address] GAP 10 Normal 5-15 [facility] Comment on above: Performed By: #### L 100.0100, L500.2500 ####[facility] [address] [place], [address] GFR/1.73 sq M.predicted among non-blacks MDRD (S/P/Bld) [Vol rate/Area] 80 mL/min/{1.73_m2} Normal >60 [facility] Comment on above: Result Comment: Non- GFR Calc Performed By: #### L 100.0100, L500.2500 ####[facility] [address] [place], [address] Glucose [Mass/Vol] 112 mg/dL High 74-106 [facility] Comment on above: Result Comment: Fast ing Glucose result from 100 to 125 mg/dLsuggests IMPAIRED HOMEOSTASIS per A.D.A. criteria. Performed By: #### L 100.0100, L500.2500 ####[facility] [address] [place], [address] Potassium [Moles/Vol] 3.8 mmol/L Normal 3.5-5.1 [facility] Comment on above: Performed By: #### L 100.0100, L500.2500 ####[facility] [address] [place], [address] Sodium [Moles/Vol] 137 mmol/L Normal 136-145 [facility] Comment on above: Performed By: #### L 100.0100, L500.2500 ####[facility] [address] [place], [address] Urea nitrogen [Mass/Vol] 11 mg/dL Normal 7-18 [facility] Comment on above: Performed By: #### L 100.0100, L500.2500 ####[facility] [address] [place], [address] CBC W/Diff, Automatedon 06-0 7-2023 Absolute Lymph 0.58 X10 3/uL Low 0.83-4.51 [facility] Comment on above: Performed By: #### L 100.0100, L500.2500 ####[facility] [address] [place], [address] Absolute Neut 3.6 X10 3/uL Normal 2.0-7.7 [facility] Comment on above: Performed By: #### L 100.0100, L500.2500 ####[facility] [address] [place], [address] Basophils/100 WBC (Bld) 0.2 % Normal 0-1 [facility] Comment on above: Performed By: #### L 100.0100, L500.2500 ####[facility] [address] [place], [address] Eosinophils/100 WBC (Bld) 0.2 % Normal 0-5 [facility] Comment on above: Performed By: #### L 100.0100, L500.2500 ####[facility] [address] [place], [address] Erythrocyte distribution width (RBC) [Ratio] 15.3 % High 11.6-14.6 [facility] Comment on above: Performed By: #### L 100.0100, L500.2500 ####[facility] [address] [place], [address] Hematocrit (Bld) [Volume fraction] 36.1 % Low 37-47 [facility] Comment on above: Performed By: #### L 100.0100, L500.2500 ####[facility] [address] [place], [address] Hemoglobin (Bld) [Mass/Vol] 11.2 g/dL Low 12.0-15.0 [facility] Comment on above: Performed By: #### L 100.0100, L500.2500 ####[facility] [address] [place], [address] IG% 1.900 High 0.0-0.9 [facility] Comment on above: Result Comment: IG% - Immature Granulocytes (promyelocytes, myelocytes andmetamyelocytes) > 1% indicates that a LEFT SHIFT is Present. Performed By: #### L 100.0100, L500.2500 ####[facility] [address] [place], [address] Lymphocytes/100 WBC (Bld) 12.3 % Low 19-41 [facility] Comment on above: Performed By: #### L 100.0100, L500.2500 ####[facility] [address] [place], [address] MCH (RBC) [Entitic mass] 26.7 pg Low 27.0-32.0 [facility] Comment on above: Performed By: #### L 100.0100, L500.2500 ####[facility] [address] [place], [address] MCHC (RBC) [Mass/Vol] 31.0 g/dL Low 32-36 [facility] Comment on above: Performed By: #### L 100.0100, L500.2500 ####[facility] [address] [place], [address] MCV (RBC) [Entitic vol] 86.2 fL Normal 81-99 [facility] Comment on above: Performed By: #### L 100.0100, L500.2500 ####[facility] [address] [place], [address] Monocytes/100 WBC (Bld) 8.7 % Normal 0-10 [facility] Comment on above: Performed By: #### L 100.0100, L500.2500 ####[facility] [address] [place], [address] Neutrophils/100 WBC (Bld) 76.7 % High 47-70 [facility] Comment on above: Performed By: #### L 100.0100, L500.2500 ####[facility] [address] [place], [address] Nucleated RBC (Bld) [#/Vol] 0 10*3/uL Normal 0-5 [facility] Comment on above: Performed By: #### L 100.0100, L500.2500 ####[facility] [address] [place], [address] Platelet mean volume (Bld) [Entitic vol] 9.4 fL Normal 6.2-12.0 [facility] Comment on above: Performed By: #### L 100.0100, L500.2500 ####[facility] [address] [place], [address] Platelets (Bld) [#/Vol] 131 10*3/uL Low 150-450 [facility] Comment on above: Performed By: #### L 100.0100, L500.2500 ####[facility] [address] [place], [address] RBC (Bld) [#/Vol] 4.19 10*6/uL Low 4.2-5.4 [facility] Comment on above: Performed By: #### L 100.0100, L500.2500 ####[facility] [address] [place], [address] RDW SD 48.4 fl High 35.1-43.9 [facility] Comment on above: Performed By: #### L 100.0100, L500.2500 ####[facility] [address] [place], [address] WBC (Bld) [#/Vol] 4.7 10*3/uL Normal 4.4-11.0 [facility] Comment on above: Performed By: #### L 100.0100, L500.2500 ####[facility] [address] [place], [address] Extremity Lower WITH Contras ton 05-06-2024 Extremity Lower WITH Contrast Normal [facility] Vancomycin, Random Levelon 0 05-06-2024 VANCO, RANDOM 14.0 ug/mL Normal 0.0-15.0 [facility] Comment on above: Result Comment: VANC OMYCIN STANDARD DRUG THERAPY: CRITICAL VALUE IS > 15.0 mg/LVANCOMYCIN HIGH INTENSITY THERAPY: CRITICAL VALUE IS > 20.0 mg/LPLEASE CONTACT PHARMACY SERVICES (#4780) FOR INTERPRETATIONOF RESULTS. THIS RESULT DOES NOT REPRESENT A PEAK OR TROUGHLEVEL FOR THIS DRUG. Performed By: #### L 501.8850 ####[facility] [address] [place], [address] CBC W/Diff, Automatedon 06-0 Absolute Lymph 0.39 X10 3/uL Low 0.83-4.51 [facility] Comment on above: Performed By: #### L 501.5200, L100.0100, L500.4050, L501.2300 ####[facility] [address] [place], [address] Absolute Neut 10.3 X10 3/uL High 2.0-7.7 [facility] Comment on above: Performed By: #### L 501.5200, L100.0100, L500.4050, L501.2300 ####[facility] [address] [place], [address] Basophils/100 WBC (Bld) 0.1 % Normal 0-1 [facility] Comment on above: Performed By: #### L 501.5200, L100.0100, L500.4050, L501.2300 ####[facility] [address] [place], [address] Eosinophils/100 WBC (Bld) 0.0 % Normal 0-5 [facility] Comment on above: Performed By: #### L 501.5200, L100.0100, L500.4050, L501.2300 ####[facility] [address] [place], [address] Erythrocyte distribution width (RBC) [Ratio] 15.3 % High 11.6-14.6 [facility] Comment on above: Performed By: #### L 501.5200, L100.0100, L500.4050, L501.2300 ####[facility] [address] [place], [address] Hematocrit (Bld) [Volume fraction] 38.2 % Normal 37-47 [facility] Comment on above: Performed By: #### L 501.5200, L100.0100, L500.4050, L501.2300 ####[facility] [address] [place], [address] Hemoglobin (Bld) [Mass/Vol] 12.1 g/dL Normal 12.0-15.0 [facility] Comment on above: Performed By: #### L 501.5200, L100.0100, L500.4050, L501.2300 ####[facility] [address] [place], [address] IG% 0.800 Normal 0.0-0.9 [facility] Comment on above: Result Comment: IG% - Immature Granulocytes (promyelocytes, myelocytes andmetamyelocytes) > 1% indicates that a LEFT SHIFT is Present. Performed By: #### L 501.5200, L100.0100, L500.4050, L501.2300 ####[facility] [address] [place], [address] Lymphocytes/100 WBC (Bld) 3.6 % Low 19-41 [facility] Comment on above: Performed By: #### L 501.5200, L100.0100, L500.4050, L501.2300 ####[facility] [address] [place], [address] MCH (RBC) [Entitic mass] 26.9 pg Low 27.0-32.0 [facility] Comment on above: Performed By: #### L 501.5200, L100.0100, L500.4050, L501.2300 ####[facility] [address] [place], [address] MCHC (RBC) [Mass/Vol] 31.7 g/dL Low 32-36 [facility] Comment on above: Performed By: #### L 501.5200, L100.0100, L500.4050, L501.2300 ####[facility] [address] [place], [address] MCV (RBC) [Entitic vol] 84.9 fL Normal 81-99 [facility] Comment on above: Performed By: #### L 501.5200, L100.0100, L500.4050, L501.2300 ####[facility] [address] [place], [address] Monocytes/100 WBC (Bld) 1.7 % Normal 0-10 [facility] Comment on above: Performed By: #### L 501.5200, L100.0100, L500.4050, L501.2300 ####[facility] [address] [place], [address] Neutrophils/100 WBC (Bld) 93.8 % High 47-70 [facility] Comment on above: Performed By: #### L 501.5200, L100.0100, L500.4050, L501.2300 ####[facility] [address] [place], [address] Nucleated RBC (Bld) [#/Vol] 0 10*3/uL Normal 0-5 [facility] Comment on above: Performed By: #### L 501.5200, L100.0100, L500.4050, L501.2300 ####[facility] [address] [place], [address] Platelet mean volume (Bld) [Entitic vol] 9.4 fL Normal 6.2-12.0 [facility] Comment on above: Performed By: #### L 501.5200, L100.0100, L500.4050, L501.2300 ####[facility] [address] [place], [address] Platelets (Bld) [#/Vol] 146 10*3/uL Low 150-450 [facility] Comment on above: Performed By: #### L 501.5200, L100.0100, L500.4050, L501.2300 ####[facility] [address] [place], [address] RBC (Bld) [#/Vol] 4.50 10*6/uL Normal 4.2-5.4 [facility] Comment on above: Performed By: #### L 501.5200, L100.0100, L500.4050, L501.2300 ####[facility] [address] [place], [address] RDW SD 47.5 fl High 35.1-43.9 [facility] Comment on above: Performed By: #### L 501.5200, L100.0100, L500.4050, L501.2300 ####[facility] [address] [place], [address] WBC (Bld) [#/Vol] 10.9 10*3/uL Normal 4.4-11.0 [facility] Comment on above: Performed By: #### L 501.5200, L100.0100, L500.4050, L501.2300 ####[facility] [address] [place], [address] CDIFF (PCR)on 05-05-2024 CDIFF Normal [facility] Comment on above: Performed By: #### M 100.637, M100.0605, M100.6796 ####[facility] [address] [place], [address] Comprehensive Metabolic Prof ilon 05-05-2024 Albumin [Mass/Vol] 2.9 g/dL Low 3.2-5.0 [facility] Comment on above: Performed By: #### L 501.5200, L100.0100, L500.4050, L501.2300 ####[facility] [address] [place], [address] Albumin/Globulin [Mass ratio] 0.7 {ratio} Low 0.9-2.4 [facility] Comment on above: Performed By: #### L 501.5200, L100.0100, L500.4050, L501.2300 ####[facility] [address] [place], [address] ALK P 79 U/L Normal 45-117 [facility] Comment on above: Performed By: #### L 501.5200, L100.0100, L500.4050, L501.2300 ####[facility] [address] [place], [address] ALT [Catalytic activity/Vol] 36 U/L Normal 13-56 [facility] Comment on above: Performed By: #### L 501.5200, L100.0100, L500.4050, L501.2300 ####[facility] [address] [place], [address] AST [Catalytic activity/Vol] 32 U/L Normal 15-37 [facility] Comment on above: Performed By: #### L 501.5200, L100.0100, L500.4050, L501.2300 ####[facility] [address] [place], [address] Bilirubin [Mass/Vol] 0.90 mg/dL Normal 0.20-1.00 [facility] Comment on above: Result Comment: For patients on eltrombopag therapy, use of Dimension [employer] TBIL is not recommended. Performed By: #### L 501.5200, L100.0100, L500.4050, L501.2300 ####[facility] [address] [place], [address] BUN/CRE 15.7 RATIO Normal 10-20 [facility] Comment on above: Performed By: #### L 501.5200, L100.0100, L500.4050, L501.2300 ####[facility] [address] [place], [address] CA,Total 8.7 mg/dL Normal 8.5-10.1 [facility] Comment on above: Performed By: #### L 501.5200, L100.0100, L500.4050, L501.2300 ####[facility] [address] [place], [address] Chloride [Moles/Vol] 105 mmol/L Normal 98-107 [facility] Comment on above: Performed By: #### L 501.5200, L100.0100, L500.4050, L501.2300 ####[facility] [address] [place], [address] CO2 [Moles/Vol] 22.0 mmol/L Normal 21.0-32.0 [facility] Comment on above: Performed By: #### L 501.5200, L100.0100, L500.4050, L501.2300 ####[facility] [address] [place], [address] Creatinine [Mass/Vol] 0.96 mg/dL Normal 0.55-1.02 [facility] Comment on above: Result Comment: The validity of the calculated GFR GFRAA in patients over70 years has not been determined. Clinical correlation isessential. Performed By: #### L 501.5200, L100.0100, L500.4050, L501.2300 ####[facility] [address] [place], [address] ECRCL 127.08 ml/min Normal [facility] Comment on above: Performed By: #### L 501.5200, L100.0100, L500.4050, L501.2300 ####[facility] [address] [place], [address] EST GFR - AA 78 mL/min Normal >60 [facility] Comment on above: Result Comment: Afri can Anguillan GFR Calc Performed By: #### L 501.5200, L100.0100, L500.4050, L501.2300 ####[facility] [address] [place], [address] GAP 9 Normal 5-15 [facility] Comment on above: Performed By: #### L 501.5200, L100.0100, L500.4050, L501.2300 ####[facility] [address] [place], [address] GFR/1.73 sq M.predicted among non-blacks MDRD (S/P/Bld) [Vol rate/Area] 64 mL/min/{1.73_m2} Normal >60 [facility] Comment on above: Result Comment: Non- GFR Calc Performed By: #### L 501.5200, L100.0100, L500.4050, L501.2300 ####[facility] [address] [place], [address] Globulin (S) [Mass/Vol] 4.0 g/dL Normal 2.2-4.2 [facility] Comment on above: Performed By: #### L 501.5200, L100.0100, L500.4050, L501.2300 ####[facility] [address] [place], [address] Glucose [Mass/Vol] 96 mg/dL Normal 74-106 [facility] Comment on above: Performed By: #### L 501.5200, L100.0100, L500.4050, L501.2300 ####[facility] [address] [place], [address] Potassium [Moles/Vol] 3.8 mmol/L Normal 3.5-5.1 [facility] Comment on above: Performed By: #### L 501.5200, L100.0100, L500.4050, L501.2300 ####[facility] [address] [place], [address] Sodium [Moles/Vol] 136 mmol/L Normal 136-145 [facility] Comment on above: Performed By: #### L 501.5200, L100.0100, L500.4050, L501.2300 ####[facility] [address] [place], [address] T PROT 6.9 g/dL Normal 6.4-8.2 [facility] Comment on above: Performed By: #### L 501.5200, L100.0100, L500.4050, L501.2300 ####[facility] [address] [place], [address] Urea nitrogen [Mass/Vol] 15 mg/dL Normal 7-18 [facility] Comment on above: Performed By: #### L 501.5200, L100.0100, L500.4050, L501.2300 ####[facility] [address] [place], [address] Consultation - Infectious Dx on 05-05-2024 Consultation - Infectious Dx Normal [facility] ENTERIC PATHOGEN PANEL STOOL on 05-05-2024 EP PANEL Normal [facility] Comment on above: Performed By: #### M 100.637, M100.0605, M100.6796 ####[facility] [address] [place], [address] Magnesiumon 05-05-2024 Magnesium [Mass/Vol] 1.6 mg/dL Normal 1.6-2.6 [facility] Comment on above: Performed By: #### L 501.5200, L100.0100, L500.4050, L501.2300 ####[facility] [address] [place], [address] Phosphoruson 05-05-2024 Phosphate [Mass/Vol] 3.0 mg/dL Normal 2.5-4.9 [facility] Comment on above: Performed By: #### L 501.5200, L100.0100, L500.4050, L501.2300 ####[facility] [address] [place], [address] Procedure Reporton Procedure Report Normal [facility] Stool Lactoferrin/WBCon WBCST Is the patient recei ving laxatives? N New/unexplained onset of 3 or more stools in past 24 hrs? N prior to this stool, last bm was 6/4 Normal Reference Range = Negative Fecal WBC Lactoferrin Negative: No Fecal WBC Lactoferrin present Normal [facility] Comment on above: Performed By: #### M 100.637, M100.0605, M100.6796 ####[facility] [address] [place], [address] Vancomycin, Trough Levelon 0 6-06-2024 VANCO, TROUGH 23.7 ug/mL High 5.0-15.0 [facility] Comment on above: Order Comment: Comme nts: Trough to be drawn 30 mins prior to scheduled [id number] Result Comment: VANC OMYCIN STANDARED DRUG THERAPY TROUGH LEVEL: 5.0 - 15.0 mg/LVANCOMYCIN HIGH INTENSITY THERAPY TROUGH LEVEL: 15.0 - 20.0 mg/LHigh Intensity therapy recommended for serious lifethreatening infections include:- Yhcpnhgzzk-Unzygwsjbtay-Mekfercms (Ventilator/Healtcare Associated)-SepsisPLEASE CONTACT PHARMACY SERVICES (#0107) FOR INTERPRETATIONOF RESULTS. Performed By: #### L 501.8820 ####[facility] [address] [place], [address] Basic Metabolic Profile (BMP )on 05-04-2024 BUN/CRE 18.2 RATIO Normal 10-20 [facility] Comment on above: Performed By: #### L 100.0100, L503.6005, L500.2500 ####[facility] [address] [place], [address] CA,Total 9.3 mg/dL Normal 8.5-10.1 [facility] Comment on above: Performed By: #### L 100.0100, L503.6005, L500.2500 ####[facility] [address] [place], [address] Chloride [Moles/Vol] 100 mmol/L Normal 98-107 [facility] Comment on above: Performed By: #### L 100.0100, L503.6005, L500.2500 ####[facility] [address] [place], [address] CO2 [Moles/Vol] 26.0 mmol/L Normal 21.0-32.0 [facility] Comment on above: Performed By: #### L 100.0100, L503.6005, L500.2500 ####[facility] [address] [place], [address] Creatinine [Mass/Vol] 0.99 mg/dL Normal 0.55-1.02 [facility] Comment on above: Result Comment: The validity of the calculated GFR GFRAA in patients over70 years has not been determined. Clinical correlation isessential. Performed By: #### L 100.0100, L503.6005, L500.2500 ####[facility] [address] [place], [address] ECRCL 124.61 ml/min Normal [facility] Comment on above: Performed By: #### L 100.0100, L503.6005, L500.2500 ####[facility] [address] [place], [address] EST GFR - AA 75 mL/min Normal >60 [facility] Comment on above: Result Comment: Afri can Anguillan GFR Calc Performed By: #### L 100.0100, L503.6005, L500.2500 ####[facility] [address] [place], [address] GAP 7 Normal 5-15 [facility] Comment on above: Performed By: #### L 100.0100, L503.6005, L500.2500 ####[facility] [address] [place], [address] GFR/1.73 sq M.predicted among non-blacks MDRD (S/P/Bld) [Vol rate/Area] 62 mL/min/{1.73_m2} Normal >60 [facility] Comment on above: Result Comment: Non- GFR Calc Performed By: #### L 100.0100, L503.6005, L500.2500 ####[facility] [address] [place], [address] Glucose [Mass/Vol] 116 mg/dL High 74-106 [facility] Comment on above: Result Comment: Fast ing Glucose result from 100 to 125 mg/dLsuggests IMPAIRED HOMEOSTASIS per A.D.A. criteria. Performed By: #### L 100.0100, L503.6005, L500.2500 ####[facility] [address] [place], [address] Potassium [Moles/Vol] 4.5 mmol/L Normal 3.5-5.1 [facility] Comment on above: Performed By: #### L 100.0100, L503.6005, L500.2500 ####[facility] [address] [place], [address] Sodium [Moles/Vol] 133 mmol/L Low 136-145 [facility] Comment on above: Performed By: #### L 100.0100, L503.6005, L500.2500 ####[facility] [address] [place], [address] Urea nitrogen [Mass/Vol] 18 mg/dL Normal 7-18 [facility] Comment on above: Performed By: #### L 100.0100, L503.6005, L500.2500 ####[facility] [address] [place], [address] CBC W/Diff, Automatedon 06-0 5-2024 Absolute Lymph 0.29 X10 3/uL Low 0.83-4.51 [facility] Comment on above: Performed By: #### L 100.0100, L503.6005, L500.2500 ####[facility] [address] [place], [address] Absolute Neut 18.2 X10 3/uL High 2.0-7.7 [facility] Comment on above: Performed By: #### L 100.0100, L503.6005, L500.2500 ####[facility] [address] [place], [address] Basophils/100 WBC (Bld) 0.2 % Normal 0-1 [facility] Comment on above: Performed By: #### L 100.0100, L503.6005, L500.2500 ####[facility] [address] [place], [address] Eosinophils/100 WBC (Bld) 0.0 % Normal 0-5 [facility] Comment on above: Performed By: #### L 100.0100, L503.6005, L500.2500 ####[facility] [address] [place], [address] Erythrocyte distribution width (RBC) [Ratio] 15.0 % High 11.6-14.6 [facility] Comment on above: Performed By: #### L 100.0100, L503.6005, L500.2500 ####[facility] [address] [place], [address] Hematocrit (Bld) [Volume fraction] 39.9 % Normal 37-47 [facility] Comment on above: Performed By: #### L 100.0100, L503.6005, L500.2500 ####[facility] [address] [place], [address] Hemoglobin (Bld) [Mass/Vol] 12.7 g/dL Normal 12.0-15.0 [facility] Comment on above: Performed By: #### L 100.0100, L503.6005, L500.2500 ####[facility] [address] [place], [address] IG% 0.800 Normal 0.0-0.9 [facility] Comment on above: Result Comment: IG% - Immature Granulocytes (promyelocytes, myelocytes andmetamyelocytes) > 1% indicates that a LEFT SHIFT is Present. Performed By: #### L 100.0100, L503.6005, L500.2500 ####[facility] [address] [place], [address] Lymphocytes/100 WBC (Bld) 1.5 % Low 19-41 [facility] Comment on above: Performed By: #### L 100.0100, L503.6005, L500.2500 ####[facility] [address] [place], [address] MCH (RBC) [Entitic mass] 27.3 pg Normal 27.0-32.0 [facility] Comment on above: Performed By: #### L 100.0100, L503.6005, L500.2500 ####[facility] [address] [place], [address] MCHC (RBC) [Mass/Vol] 31.8 g/dL Low 32-36 [facility] Comment on above: Performed By: #### L 100.0100, L503.6005, L500.2500 ####[facility] [address] [place], [address] MCV (RBC) [Entitic vol] 85.8 fL Normal 81-99 [facility] Comment on above: Performed By: #### L 100.0100, L503.6005, L500.2500 ####[facility] [address] [place], [address] Monocytes/100 WBC (Bld) 2.8 % Normal 0-10 [facility] Comment on above: Performed By: #### L 100.0100, L503.6005, L500.2500 ####[facility] [address] [place], [address] Neutrophils/100 WBC (Bld) 94.7 % High 47-70 [facility] Comment on above: Performed By: #### L 100.0100, L503.6005, L500.2500 ####[facility] [address] [place], [address] Nucleated RBC (Bld) [#/Vol] 0 10*3/uL Normal 0-5 [facility] Comment on above: Performed By: #### L 100.0100, L503.6005, L500.2500 ####[facility] [address] [place], [address] Platelet mean volume (Bld) [Entitic vol] 10.0 fL Normal 6.2-12.0 [facility] Comment on above: Performed By: #### L 100.0100, L503.6005, L500.2500 ####[facility] [address] [place], [address] Platelets (Bld) [#/Vol] 160 10*3/uL Normal 150-450 [facility] Comment on above: Performed By: #### L 100.0100, L503.6005, L500.2500 ####[facility] [address] [place], [address] RBC (Bld) [#/Vol] 4.65 10*6/uL Normal 4.2-5.4 [facility] Comment on above: Performed By: #### L 100.0100, L503.6005, L500.2500 ####[facility] [address] [place], [address] RDW SD 46.8 fl High 35.1-43.9 [facility] Comment on above: Performed By: #### L 100.0100, L503.6005, L500.2500 ####[facility] [address] [place], [address] WBC (Bld) [#/Vol] 19.2 10*3/uL High 4.4-11.0 [facility] Comment on above: Performed By: #### L 100.0100, L503.6005, L500.2500 ####[facility] [address] [place], [address] Emergency Department Summary on 05-04-2024 Emergency Department Summary Normal [facility] H AND P Exam - Hospitaliston 05-04-2024 H&P Exam - Hospitalist Normal [facility] Hemoglobin A1con 05-04-2024 HbA1c (Bld) [Mass fraction] 5.8 % High 3.8-5.6 [facility] Comment on above: Result Comment: Norm al < 5.7 % Prediabetic 5.7 - 6.4 % Diabetic >or= 6.5 % Please note range changes. Performed By: #### L 501.9985 ####[facility] [address] [place], [address] Lactic Acidon 05-04-2024 Lactate [Moles/Vol] 1.6 mmol/L Normal 0.4-1.9 [facility] Comment on above: Order Comment: Y Performed By: #### L 100.0100, L503.6005, L500.2500 ####[facility] [address] [place], [address] Culture, Blood (WB)on 2023 CUB R SHOULDER No growth in 5 days. Normal [facility] Comment on above: Performed By: #### L 503.6005, M200.1000, L500.4050 ####[facility] [address] [place], [address] CUB No growth in 5 days. Normal [facility] Comment on above: Performed By: #### M 200.1000 ####[facility] [address] [place], [address] Discharge Instructionon 03-30 Discharge Instruction Normal [facility] Absolute lymphocyte countOrd ered By: Rubin Hadley on 04-07-2024 Lymphocytes Auto (Unsp spec) [#/Vol] 1.06 10*3/uL 0.83-4.51 [facility] Automated lymphocyte count a s percentage of total leukocytesOrdered By: Rubin Hadley on 04-07-2024 Lymphocytes/100 WBC Auto (Unsp spec) 15.1 % 19-41 [facility] Basic Metabolic Profile (BMP )on 04-07-2024 BUN/CRE 15.7 RATIO Normal 10-20 [facility] Comment on above: Performed By: #### L 500.2500, L100.0100 ####[facility] [address] [place], [address] CA,Total 9.6 mg/dL Normal 8.5-10.1 [facility] Comment on above: Performed By: #### L 500.2500, L100.0100 ####[facility] [address] [place], [address] Chloride [Moles/Vol] 103 mmol/L Normal 98-107 [facility] Comment on above: Performed By: #### L 500.2500, L100.0100 ####[facility] [address] [place], [address] CO2 [Moles/Vol] 27.0 mmol/L Normal 21.0-32.0 [facility] Comment on above: Performed By: #### L 500.2500, L100.0100 ####[facility] [address] [place], [address] Creatinine [Mass/Vol] 0.89 mg/dL Normal 0.55-1.02 [facility] Comment on above: Result Comment: The validity of the calculated GFR GFRAA in patients over70 years has not been determined. Clinical correlation isessential. Performed By: #### L 500.2500, L100.0100 ####[facility] [address] [place], [address] ECRCL 139.37 ml/min Normal [facility] Comment on above: Performed By: #### L 500.2500, L100.0100 ####[facility] [address] [place], [address] EST GFR - AA 84 mL/min Normal >60 [facility] Comment on above: Result Comment: Afri can Anguillan GFR Calc Performed By: #### L 500.2500, L100.0100 ####[facility] [address] [place], [address] GAP 5 Normal 5-15 [facility] Comment on above: Performed By: #### L 500.2500, L100.0100 ####[facility] [address] [place], [address] GFR/1.73 sq M.predicted among non-blacks MDRD (S/P/Bld) [Vol rate/Area] 69 mL/min/{1.73_m2} Normal >60 [facility] Comment on above: Result Comment: Non- GFR Calc Performed By: #### L 500.2500, L100.0100 ####[facility] [address] [place], [address] Glucose [Mass/Vol] 115 mg/dL High 74-106 [facility] Comment on above: Result Comment: Fast ing Glucose result from 100 to 125 mg/dLsuggests IMPAIRED HOMEOSTASIS per A.D.A. criteria. Performed By: #### L 500.2500, L100.0100 ####[facility] [address] [place], [address] Potassium [Moles/Vol] 4.2 mmol/L Normal 3.5-5.1 [facility] Comment on above: Performed By: #### L 500.2500, L100.0100 ####[facility] [address] [place], [address] Sodium [Moles/Vol] 135 mmol/L Low 136-145 [facility] Comment on above: Performed By: #### L 500.2500, L100.0100 ####[facility] [address] [place], [address] Urea nitrogen [Mass/Vol] 14 mg/dL Normal 7-18 [facility] Comment on above: Performed By: #### L 500.2500, L100.0100 ####[facility] [address] [place], [address] Basophil percentageOrdered B y: Rubin Hadley on 04-07-2024 Basophils/100 WBC (Bld) 0.4 % 0-1 [facility] Chloride [Moles/Vol] 103 mmol/L 98-107 [facility] Eosinophils/100 WBC (Bld) 0.0 % 0-5 [facility] Glucose [Mass/Vol] 115 mg/dL 74-106 [facility] Comment on above: Fasting Glucose resu lt from 100 to 125 mg/dL suggests IMPAIRED HOMEOSTASIS per A.D.A. criteria. Hemoglobin (Bld) [Mass/Vol] 12.7 g/dL 12.0-15.0 [facility] Monocytes/100 WBC (Bld) 11.4 % 0-10 [facility] Neutrophils (Bld) [#/Vol] 5.0 10*3/uL 2.0-7.7 [facility] Neutrophils/100 WBC (Bld) 71.7 % 47-70 [facility] Potassium [Moles/Vol] 4.2 mmol/L 3.5-5.1 [facility] Sodium [Moles/Vol] 135 mmol/L 136-145 [facility] WBC (Bld) [#/Vol] 7.0 10*3/uL 4.4-11.0 [facility] CBC W/Diff, Automatedon Absolute Lymph 1.06 X10 3/uL Normal 0.83-4.51 [facility] Comment on above: Performed By: #### L 500.2500, L100.0100 ####[facility] [address] [place], [address] Absolute Neut 5.0 X10 3/uL Normal 2.0-7.7 [facility] Comment on above: Performed By: #### L 500.2500, L100.0100 ####[facility] [address] [place], [address] Basophils/100 WBC (Bld) 0.4 % Normal 0-1 [facility] Comment on above: Performed By: #### L 500.2500, L100.0100 ####[facility] [address] [place], [address] Eosinophils/100 WBC (Bld) 0.0 % Normal 0-5 [facility] Comment on above: Performed By: #### L 500.2500, L100.0100 ####[facility] [address] [place], [address] Erythrocyte distribution width (RBC) [Ratio] 15.1 % High 11.6-14.6 [facility] Comment on above: Performed By: #### L 500.2500, L100.0100 ####[facility] [address] [place], [address] Hematocrit (Bld) [Volume fraction] 40.7 % Normal 37-47 [facility] Comment on above: Performed By: #### L 500.2500, L100.0100 ####[facility] [address] [place], [address] Hemoglobin (Bld) [Mass/Vol] 12.7 g/dL Normal 12.0-15.0 [facility] Comment on above: Performed By: #### L 500.2500, L100.0100 ####[facility] [address] [place], [address] IG% 1.400 High 0.0-0.9 [facility] Comment on above: Result Comment: IG% - Immature Granulocytes (promyelocytes, myelocytes andmetamyelocytes) > 1% indicates that a LEFT SHIFT is Present. Performed By: #### L 500.2500, L100.0100 ####[facility] [address] [place], [address] Lymphocytes/100 WBC (Bld) 15.1 % Low 19-41 [facility] Comment on above: Performed By: #### L 500.2500, L100.0100 ####[facility] [address] [place], [address] MCH (RBC) [Entitic mass] 26.6 pg Low 27.0-32.0 [facility] Comment on above: Performed By: #### L 500.2500, L100.0100 ####[facility] [address] [place], [address] MCHC (RBC) [Mass/Vol] 31.2 g/dL Low 32-36 [facility] Comment on above: Performed By: #### L 500.2500, L100.0100 ####[facility] [address] [place], [address] MCV (RBC) [Entitic vol] 85.3 fL Normal 81-99 [facility] Comment on above: Performed By: #### L 500.2500, L100.0100 ####[facility] [address] [place], [address] Monocytes/100 WBC (Bld) 11.4 % High 0-10 [facility] Comment on above: Performed By: #### L 500.2500, L100.0100 ####[facility] [address] [place], [address] Neutrophils/100 WBC (Bld) 71.7 % High 47-70 [facility] Comment on above: Performed By: #### L 500.2500, L100.0100 ####[facility] [address] [place], [address] Nucleated RBC (Bld) [#/Vol] 0 10*3/uL Normal 0-5 [facility] Comment on above: Performed By: #### L 500.2500, L100.0100 ####[facility] [address] [place], [address] Platelet mean volume (Bld) [Entitic vol] 9.8 fL Normal 6.2-12.0 [facility] Comment on above: Performed By: #### L 500.2500, L100.0100 ####[facility] [address] [place], [address] Platelets (Bld) [#/Vol] 191 10*3/uL Normal 150-450 [facility] Comment on above: Performed By: #### L 500.2500, L100.0100 ####[facility] [address] [place], [address] RBC (Bld) [#/Vol] 4.77 10*6/uL Normal 4.2-5.4 [facility] Comment on above: Performed By: #### L 500.2500, L100.0100 ####[facility] [address] [place], [address] RDW SD 47.2 fl High 35.1-43.9 [facility] Comment on above: Performed By: #### L 500.2500, L100.0100 ####[facility] [address] [place], [address] WBC (Bld) [#/Vol] 7.0 10*3/uL Normal 4.4-11.0 [facility] Comment on above: Performed By: #### L 500.2500, L100.0100 ####[facility] [address] [place], [address] Determination of erythrocyte mean corpuscular volume (MCV)Ordered By: Rubin Hadley on 04-07-2024 MCV (RBC) [Entitic vol] 85.3 fL 81-99 [facility] Erythrocyte distribution wid th ratioOrdered By: Rubni Hadley on 04-07-2024 Erythrocyte distribution width (RBC) [Ratio] 15.1 % 11.6-14.6 [facility] Erythrocyte distribution wid th standard deviationOrdered By: Rubin Hadley on 04-07-2024 Erythrocyte distribution width (RBC) [Entitic vol] 47.2 fL 35.1-43.9 [facility] Hematocrit Auto (Bld) [Volum e fraction]Ordered By: Rubin Hadley on 04-07-2024 Hematocrit (Bld) [Volume fraction] 40.7 % 37-47 [facility] Immature granulocytes/100 WB C Auto (Bld)Ordered By: Rubin [place] on 04-07-2024 Immature granulocytes/100 WBC (Bld) 1.400 % 0.0-0.9 [facility] Comment on above: IG% - Immature Granu locytes (promyelocytes, myelocytes and metamyelocytes) > 1% indicates that a LEFT SHIFT is Present. Laboratory - Chemistry and C hemistry - challengeOrdered By: Rubin Hadley on 04-07-2024 CO2 [Moles/Vol] 27.0 mmol/L 21.0-32.0 [facility] Urea nitrogen/Creatinine [Mass ratio] 15.7 mg/mg 10-20 [facility] Laboratory - Hematology and Cell countsOrdered By: Rubin Hadley on 04-07-2024 MCH (RBC) [Entitic mass] 26.6 pg 27.0-32.0 [facility] MCHC (RBC) [Mass/Vol] 31.2 g/dL 32-36 [facility] Nucleated RBC/100 WBC (Bld) [Ratio] 0 % 0-5 [facility] Platelet mean volume (Bld) [Entitic vol] 9.8 fL 6.2-12.0 [facility] Platelets (Bld) [#/Vol] 191 10*3/uL 150-450 [facility] M R Staph Aureus DNA by PCRo n 04-07-2024 MRSA DNA ASSAY Negative Normal Negative [facility] Comment on above: Performed By: #### L 8200.1000 ####[facility] [address] [place], [place], [id number] No Panel InformationOrdered By: Rubin Hadley on 04-07-2024 Methicillin-Resist S.aureus DNA PCR Negative Negative [facility] Estimated Creatinine Clearance Calc 139.37 ml/min [facility] Estimated GFR (MDRD) Amer 84 mL/min >60 [facility] Comment on above: GFR Calc Estimated GFR (MDRD) Non-Af Amer 69 mL/min >60 [facility] Comment on above: Non- GFR Calc RBC Auto (Bld) [#/Vol]Ordere d By: Rubin Hadley on 04-07-2024 RBC (Bld) [#/Vol] 4.77 10*6/uL 4.2-5.4 [facility] Serum or plasma calcium herson urement (mass/volume)Ordered By: Rubin Hadley on 04-07-2024 Calcium [Mass/Vol] 9.6 mg/dL 8.5-10.1 [facility] Serum or plasma creatinine m easurement (mass/volume)Ordered By: Rubin Hadley on 04-07-2024 Creatinine [Mass/Vol] 0.89 mg/dL 0.55-1.02 [facility] Comment on above: The validity of the calculated GFR & GFRAA in patients over 70 years has not been determined. Clinical correlation is essential. Serum or plasma urea nitroge n measurement (mass/volume)Ordered By: Rubin Hadley on 04-07-2024 Urea nitrogen [Mass/Vol] 14 mg/dL 7-18 [facility] Thin prep Papanicolaou smear with manual screeningOrdered By: Rubin Hadley on 04-07-2024 Thin prep Papanicolaou smear with manual screening 5 5-15 [facility] Basic Metabolic Profile (BMP )on 04-06-2024 BUN/CRE 18.1 RATIO Normal 10-20 [facility] Comment on above: Performed By: #### L 100.0100, L500.2500 ####[facility] [address] [place], [address] CA,Total 9.0 mg/dL Normal 8.5-10.1 [facility] Comment on above: Performed By: #### L 100.0100, L500.2500 ####[facility] [address] [place], [address] Chloride [Moles/Vol] 106 mmol/L Normal 98-107 [facility] Comment on above: Performed By: #### L 100.0100, L500.2500 ####[facility] [address] [place], [address] CO2 [Moles/Vol] 27.0 mmol/L Normal 21.0-32.0 [facility] Comment on above: Performed By: #### L 100.0100, L500.2500 ####[facility] [address] [place], [address] Creatinine [Mass/Vol] 0.72 mg/dL Normal 0.55-1.02 [facility] Comment on above: Result Comment: The validity of the calculated GFR GFRAA in patients over70 years has not been determined. Clinical correlation isessential. Performed By: #### L 100.0100, L500.2500 ####[facility] [address] [place], [address] ECRCL 172.27 ml/min Normal [facility] Comment on above: Performed By: #### L 100.0100, L500.2500 ####[facility] [address] [place], [address] EST GFR - AA 108 mL/min Normal >60 [facility] Comment on above: Result Comment: Afri can Anguillan GFR Calc Performed By: #### L 100.0100, L500.2500 ####[facility] [address] [place], [address] GAP 5 Normal 5-15 [facility] Comment on above: Performed By: #### L 100.0100, L500.2500 ####[facility] [address] [place], [address] GFR/1.73 sq M.predicted among non-blacks MDRD (S/P/Bld) [Vol rate/Area] 89 mL/min/{1.73_m2} Normal >60 [facility] Comment on above: Result Comment: Non- GFR Calc Performed By: #### L 100.0100, L500.2500 ####[facility] [address] [place], [address] Glucose [Mass/Vol] 98 mg/dL Normal 74-106 [facility] Comment on above: Performed By: #### L 100.0100, L500.2500 ####[facility] [address] [place], [address] Potassium [Moles/Vol] 4.1 mmol/L Normal 3.5-5.1 [facility] Comment on above: Performed By: #### L 100.0100, L500.2500 ####[facility] [address] [place], [address] Sodium [Moles/Vol] 138 mmol/L Normal 136-145 [facility] Comment on above: Performed By: #### L 100.0100, L500.2500 ####[facility] [address] [place], [address] Urea nitrogen [Mass/Vol] 13 mg/dL Normal 7-18 [facility] Comment on above: Performed By: #### L 100.0100, L500.2500 ####[facility] [address] [place], [address] CBC W/Diff, Automatedon 05-0 8-2024 Absolute Lymph 0.60 X10 3/uL Low 0.83-4.51 [facility] Comment on above: Order Comment: REDRA W. PREVIOUS SPECIMEN REJECTED DUE TOQNS. 04/06/24916 Adali Pratt. Performed By: #### L 100.0100 ####[facility] [address] [place], [address] Absolute Neut 3.7 X10 3/uL Normal 2.0-7.7 [facility] Comment on above: Order Comment: REDRA W. PREVIOUS SPECIMEN REJECTED DUE TOQNS. 04/06/24916 Adali Pratt. Performed By: #### L 100.0100 ####[facility] [address] [place], [address] Basophils/100 WBC (Bld) 0.2 % Normal 0-1 [facility] Comment on above: Order Comment: REDRA W. PREVIOUS SPECIMEN REJECTED DUE TOQNS. 04/06/24 0917 Adali Pratt. Performed By: #### L 100.0100 ####[facility] [address] [place], [address] Eosinophils/100 WBC (Bld) 0.2 % Normal 0-5 [facility] Comment on above: Order Comment: REDRA W. PREVIOUS SPECIMEN REJECTED DUE TOQNS. 04/06/2417 Adali Pratt. Performed By: #### L 100.0100 ####[facility] [address] [place], [address] Erythrocyte distribution width (RBC) [Ratio] 15.5 % High 11.6-14.6 [facility] Comment on above: Order Comment: REDRA W. PREVIOUS SPECIMEN REJECTED DUE TOQNS. 04/06/24 0917 Adali Pratt. Performed By: #### L 100.0100 ####[facility] [address] [place], [address] Hematocrit (Bld) [Volume fraction] 39.7 % Normal 37-47 [facility] Comment on above: Order Comment: REDRA W. PREVIOUS SPECIMEN REJECTED DUE TOQNS. 04/06/2417 Adali Pratt. Performed By: #### L 100.0100 ####[facility] [address] [place], [address] Hemoglobin (Bld) [Mass/Vol] 12.0 g/dL Normal 12.0-15.0 [facility] Comment on above: Order Comment: REDRA W. PREVIOUS SPECIMEN REJECTED DUE TOQNS. 04/06/24 0917 Adali Pratt. Performed By: #### L 100.0100 ####[facility] [address] [place], [address] IG% 1.000 High 0.0-0.9 [facility] Comment on above: Order Comment: REDRA W. PREVIOUS SPECIMEN REJECTED DUE TOQNS. 04/06/24 0917 Adali Pratt. Result Comment: IG% - Immature Granulocytes (promyelocytes, myelocytes andmetamyelocytes) > 1% indicates that a LEFT SHIFT is Present. Performed By: #### L 100.0100 ####[facility] [address] [place], [address] Lymphocytes/100 WBC (Bld) 12.2 % Low 19-41 [facility] Comment on above: Order Comment: REDRA W. PREVIOUS SPECIMEN REJECTED DUE TOQNS. 04/06/24916 Adali Pratt. Performed By: #### L 100.0100 ####[facility] [address] [place], [address] MCH (RBC) [Entitic mass] 26.3 pg Low 27.0-32.0 [facility] Comment on above: Order Comment: REDRA W. PREVIOUS SPECIMEN REJECTED DUE TOQNS. 04/06/2417 Adali Pratt. Performed By: #### L 100.0100 ####[facility] [address] [place], [address] MCHC (RBC) [Mass/Vol] 30.2 g/dL Low 32-36 [facility] Comment on above: Order Comment: REDRA W. PREVIOUS SPECIMEN REJECTED DUE TOQNS. 04/06/2417 Adali Pratt. Performed By: #### L 100.0100 ####[facility] [address] [place], [address] MCV (RBC) [Entitic vol] 87.1 fL Normal 81-99 [facility] Comment on above: Order Comment: REDRA W. PREVIOUS SPECIMEN REJECTED DUE TOQNS. 04/06/2417 Adali Pratt. Performed By: #### L 100.0100 ####[facility] [address] [place], [address] Monocytes/100 WBC (Bld) 10.8 % High 0-10 [facility] Comment on above: Order Comment: REDRA W. PREVIOUS SPECIMEN REJECTED DUE TOQNS. 04/06/24 0917 Adali Pratt. Performed By: #### L 100.0100 ####[facility] [address] [place], [address] Neutrophils/100 WBC (Bld) 75.6 % High 47-70 [facility] Comment on above: Order Comment: REDRA W. PREVIOUS SPECIMEN REJECTED DUE TOQNS. 04/06/24 0917 Adali Pratt. Performed By: #### L 100.0100 ####[facility] [address] [place], [address] Nucleated RBC (Bld) [#/Vol] 0 10*3/uL Normal 0-5 [facility] Comment on above: Order Comment: REDRA W. PREVIOUS SPECIMEN REJECTED DUE TOQNS. 04/06/24 0917 Adali Pratt. Performed By: #### L 100.0100 ####[facility] [address] [place], [address] Platelet mean volume (Bld) [Entitic vol] 9.5 fL Normal 6.2-12.0 [facility] Comment on above: Order Comment: REDRA W. PREVIOUS SPECIMEN REJECTED DUE TOQNS. 04/06/24 0917 Adali Pratt. Performed By: #### L 100.0100 ####[facility] [address] [place], [address] Platelets (Bld) [#/Vol] 140 10*3/uL Low 150-450 [facility] Comment on above: Order Comment: REDRA W. PREVIOUS SPECIMEN REJECTED DUE TOQNS. 04/06/24 0917 Adali Pratt. Performed By: #### L 100.0100 ####[facility] [address] [place], [address] RBC (Bld) [#/Vol] 4.56 10*6/uL Normal 4.2-5.4 [facility] Comment on above: Order Comment: REDRA W. PREVIOUS SPECIMEN REJECTED DUE TOQNS. 04/06/2417 Adali Pratt. Performed By: #### L 100.0100 ####[facility] [address] [place], [address] RDW SD 49.1 fl High 35.1-43.9 [facility] Comment on above: Order Comment: REDRA W. PREVIOUS SPECIMEN REJECTED DUE TOQNS. 04/06/2417 Adali Pratt. Performed By: #### L 100.0100 ####[facility] [address] [place], [address] WBC (Bld) [#/Vol] 4.9 10*3/uL Normal 4.4-11.0 [facility] Comment on above: Order Comment: REDRA W. PREVIOUS SPECIMEN REJECTED DUE TOQNS. 04/06/2417 Adali Pratt. Performed By: #### L 100.0100 ####[facility] [address] [place], [address] Absolute Neut Normal 2.0-7.7 [facility] Comment on above: Result Comment: This specimen has been REJECTED due to Laboratory criteria:Quanity Not Sufficient.NEYDA has been notified of need of recollection.04/06/2416 Adalidaria Pratt Performed By: #### L 100.0100, L500.2500 ####[facility] [address] [place], [address] HCT Normal 37-47 [facility] Comment on above: Result Comment: This specimen has been REJECTED due to Laboratory criteria:Quanity Not Sufficient.NEYDA has been notified of need of recollection.04/06/2416 Adalidaria Pratt Performed By: #### L 100.0100, L500.2500 ####[facility] [address] [place], [address] HGB Normal 12.0-15.0 [facility] Comment on above: Result Comment: This specimen has been REJECTED due to Laboratory criteria:Quanity Not Sufficient.NEYDA has been notified of need of recollection.04/06/24915 Adali Prtat Performed By: #### L 100.0100, L500.2500 ####[facility] [address] [place], [address] MCH Normal 27.0-32.0 [facility] Comment on above: Result Comment: This specimen has been REJECTED due to Laboratory criteria:Quanity Not Sufficient.NEYDA has been notified of need of recollection.04/06/24915 Adali Pratt Performed By: #### L 100.0100, L500.2500 ####[facility] [address] [place], [address] MCHC Normal 32-36 [facility] Comment on above: Result Comment: This specimen has been REJECTED due to Laboratory criteria:Quanity Not Sufficient.NEYDA has been notified of need of recollection.04/06/24915 Adali Pratt Performed By: #### L 100.0100, L500.2500 ####[facility] [address] [place], [address] MCV Normal 81-99 [facility] Comment on above: Result Comment: This specimen has been REJECTED due to Laboratory criteria:Quanity Not Sufficient.NEYDA has been notified of need of recollection.04/06/2416 Adali Pratt Performed By: #### L 100.0100, L500.2500 ####[facility] [address] [place], [address] NEUT% Normal 47-70 [facility] Comment on above: Result Comment: This specimen has been REJECTED due to Laboratory criteria:Quanity Not Sufficient.NEYDA has been notified of need of recollection.04/06/2416 Adali Pratt Performed By: #### L 100.0100, L500.2500 ####[facility] [address] [place], [address] PLT Normal 150-450 [facility] Comment on above: Result Comment: This specimen has been REJECTED due to Laboratory criteria:Quanity Not Sufficient.NEYDA has been notified of need of recollection.04/06/24915 Adali Pratt Performed By: #### L 100.0100, L500.2500 ####[facility] [address] [place], [address] RBC Normal 4.2-5.4 [facility] Comment on above: Result Comment: This specimen has been REJECTED due to Laboratory criteria:Quanity Not Sufficient.NEYDA has been notified of need of recollection.04/06/24915 Adali Pratt Performed By: #### L 100.0100, L500.2500 ####[facility] [address] [place], [address] RDW CV Normal 11.6-14.6 [facility] Comment on above: Result Comment: This specimen has been REJECTED due to Laboratory criteria:Quanity Not Sufficient.NEYDA has been notified of need of recollection.04/06/2416 Adali Pratt Performed By: #### L 100.0100, L500.2500 ####[facility] [address] [place], [address] RDW SD Normal 35.1-43.9 [facility] Comment on above: Result Comment: This specimen has been REJECTED due to Laboratory criteria:Quanity Not Sufficient.NEYDA has been notified of need of recollection.04/06/24915 Adali Pratt Performed By: #### L 100.0100, L500.2500 ####[facility] [address] [place], [address] WBC Normal 4.4-11.0 [facility] Comment on above: Result Comment: This specimen has been REJECTED due to Laboratory criteria:Quanity Not Sufficient.NEYDA has been notified of need of recollection.04/06/24 0916 Adali Pratt Performed By: #### L 100.0100, L500.2500 ####[facility] [address] [place], [place], [address] Consultation - Infectious Dx on 04-06-2024 Consultation - Infectious Dx Normal [facility] Serum or plasma trough vanco mycin levelOrdered By: Calderon Swanson on 04-05-2024 Vancomycin trough [Mass/Vol] 18.5 ug/mL 5.0-15.0 [facility] Comment on above: VANCOMYCIN STANDARED DRUG THERAPY TROUGH LEVEL: 5.0 - 15.0 mg/L VANCOMYCIN HIGH INTENSITY THERAPY TROUGH LEVEL: 15.0 - 20.0 mg/L High Intensity therapy recommended for serious lifethreatening infections include:- Flqxrpmfue-Nidbkekowkxi-Nqkoaizpm (Ventilator/Healtcare Associated)-Sepsis PLEASE CONTACT PHARMACY SERVICES (#1675) FOR INTERPRETATIONOF RESULTS. Vancomycin, Trough Levelon 0 04-05-2024 VANCO, TROUGH 18.5 ug/mL High 5.0-15.0 [facility] Comment on above: Order Comment: Comme nts: Trough to be drawn 30 mins prior to scheduled [id number] Result Comment: VANC OMYCIN STANDARED DRUG THERAPY TROUGH LEVEL: 5.0 - 15.0 mg/LVANCOMYCIN HIGH INTENSITY THERAPY TROUGH LEVEL: 15.0 - 20.0 mg/LHigh Intensity therapy recommended for serious lifethreatening infections include:- Pmxoavuivp-Yngxlpxdjoxh-Ryzikkpto (Ventilator/Healtcare Associated)-SepsisPLEASE CONTACT PHARMACY SERVICES (#5662) FOR INTERPRETATIONOF RESULTS. Performed By: #### L 501.8820 ####[facility] [address] [place], [place], [id number] Venous Duplex US - Yariel Extre mon 04-05-2024 Venous Duplex US - Yariel Extrem Normal [facility] Absolute lymphocyte countOrd ered By: Gian Villanueva on 04-04-2024 Lymphocytes Auto (Unsp spec) [#/Vol] 0.41 10*3/uL 0.83-4.51 [facility] Automated lymphocyte count a s percentage of total leukocytesOrdered By: Gian Villanueva on 04-04-2024 Lymphocytes/100 WBC Auto (Unsp spec) 2.6 % 19-41 [facility] Basophil percentageOrdered B y: Gian Villanueva on 04-04-2024 Basophils/100 WBC (Bld) 0.1 % 0-1 [facility] Bilirubin [Mass/Vol] 0.60 mg/dL 0.20-1.00 [facility] Comment on above: For patients on eltr ombopag therapy, use of Dimension [employer] TBIL is not recommended. Chloride [Moles/Vol] 101 mmol/L 98-107 [facility] Eosinophils/100 WBC (Bld) 0.0 % 0-5 [facility] Glucose [Mass/Vol] 113 mg/dL 74-106 [facility] Comment on above: Fasting Glucose resu lt from 100 to 125 mg/dL suggests IMPAIRED HOMEOSTASIS per A.D.A. criteria. Hemoglobin (Bld) [Mass/Vol] 12.4 g/dL 12.0-15.0 [facility] Lactate [Moles/Vol] 1.4 mmol/L 0.4-2.0 [facility] Monocytes/100 WBC (Bld) 5.0 % 0-10 [facility] Neutrophils (Bld) [#/Vol] 14.3 10*3/uL 2.0-7.7 [facility] Neutrophils/100 WBC (Bld) 91.5 % 47-70 [facility] Potassium [Moles/Vol] 4.6 mmol/L 3.5-5.1 [facility] Protein [Mass/Vol] 7.6 g/dL 6.4-8.2 [facility] Sodium [Moles/Vol] 135 mmol/L 136-145 [facility] WBC (Bld) [#/Vol] 15.7 10*3/uL 4.4-11.0 [facility] Blood manual differential co mment interpretation (narrative result)Ordered By: Gian Villanueva on 04-04-2024 Manual differential comment Terry (Bld) [Interp] SCANNED [facility] Comment on above: LYMPHOPENIA NOTED CBC W/Diff, Automatedon SMEAR COMMENT SCANNED Normal [facility] Comment on above: Result Comment: LYMP HOPENIA NOTED Performed By: #### L 100.0100 ####[facility] [address] [place], [address] Comprehensive Metabolic Prof ilon 04-04-2024 Albumin [Mass/Vol] 3.3 g/dL Normal 3.2-5.0 [facility] Comment on above: Performed By: #### L 503.6005, M200.1000, L500.4050 ####[facility] [address] [place], [address] Albumin/Globulin [Mass ratio] 0.8 {ratio} Low 0.9-2.4 [facility] Comment on above: Performed By: #### L 503.6005, M200.1000, L500.4050 ####[facility] [address] [place], [address] ALK P 76 U/L Normal 45-117 [facility] Comment on above: Performed By: #### L 503.6005, M200.1000, L500.4050 ####[facility] [address] [place], [address] ALT [Catalytic activity/Vol] 24 U/L Normal 13-56 [facility] Comment on above: Performed By: #### L 503.6005, M200.1000, L500.4050 ####[facility] [address] [place], [address] AST [Catalytic activity/Vol] 26 U/L Normal 15-37 [facility] Comment on above: Performed By: #### L 503.6005, M200.1000, L500.4050 ####[facility] [address] [place], [address] Bilirubin [Mass/Vol] 0.60 mg/dL Normal 0.20-1.00 [facility] Comment on above: Result Comment: For patients on eltrombopag therapy, use of [employer] TBIL is not recommended. Performed By: #### L 503.6005, M200.1000, L500.4050 ####[facility] [address] [place], [address] BUN/CRE 20.0 RATIO Normal 10-20 [facility] Comment on above: Performed By: #### L 503.6005, M200.1000, L500.4050 ####[facility] [address] [place], [address] CA,Total 9.1 mg/dL Normal 8.5-10.1 [facility] Comment on above: Performed By: #### L 503.6005, M200.1000, L500.4050 ####[facility] [address] [place], [address] Chloride [Moles/Vol] 101 mmol/L Normal 98-107 [facility] Comment on above: Performed By: #### L 503.6005, M200.1000, L500.4050 ####[facility] [address] [place], [address] CO2 [Moles/Vol] 29.0 mmol/L Normal 21.0-32.0 [facility] Comment on above: Performed By: #### L 503.6005, M200.1000, L500.4050 ####[facility] [address] [place], [address] Creatinine [Mass/Vol] 1.05 mg/dL High 0.55-1.02 [facility] Comment on above: Result Comment: The validity of the calculated GFR GFRAA in patients over70 years has not been determined. Clinical correlation isessential. Performed By: #### L 503.6005, M200.1000, L500.4050 ####[facility] [address] [place], [address] ECRCL 118.07 ml/min Normal [facility] Comment on above: Performed By: #### L 503.6005, M200.1000, L500.4050 ####[facility] [address] [place], [address] EST GFR - AA 70 mL/min Normal >60 [facility] Comment on above: Result Comment: Afri can Anguillan GFR Calc Performed By: #### L 503.6005, M200.1000, L500.4050 ####[facility] [address] [place], [address] GAP 5 Normal 5-15 [facility] Comment on above: Performed By: #### L 503.6005, M200.1000, L500.4050 ####[facility] [address] [place], [address] GFR/1.73 sq M.predicted among non-blacks MDRD (S/P/Bld) [Vol rate/Area] 58 mL/min/{1.73_m2} Low >60 [facility] Comment on above: Result Comment: Non- GFR Calc Performed By: #### L 503.6005, M200.1000, L500.4050 ####[facility] [address] [place], [address] Globulin (S) [Mass/Vol] 4.3 g/dL High 2.2-4.2 [facility] Comment on above: Performed By: #### L 503.6005, M200.1000, L500.4050 ####[facility] [address] [place], [address] Glucose [Mass/Vol] 113 mg/dL High 74-106 [facility] Comment on above: Result Comment: Fast ing Glucose result from 100 to 125 mg/dLsuggests IMPAIRED HOMEOSTASIS per A.D.A. criteria. Performed By: #### L 503.6005, M200.1000, L500.4050 ####[facility] [address] [place], [address] Potassium [Moles/Vol] 4.6 mmol/L Normal 3.5-5.1 [facility] Comment on above: Performed By: #### L 503.6005, M200.1000, L500.4050 ####[facility] [address] [place], [address] Sodium [Moles/Vol] 135 mmol/L Low 136-145 [facility] Comment on above: Performed By: #### L 503.6005, M200.1000, L500.4050 ####[facility] [address] [place], [address] T PROT 7.6 g/dL Normal 6.4-8.2 [facility] Comment on above: Performed By: #### L 503.6005, M200.1000, L500.4050 ####[facility] [address] [place], [address] Urea nitrogen [Mass/Vol] 21 mg/dL High 7-18 [facility] Comment on above: Performed By: #### L 503.6005, M200.1000, L500.4050 ####[facility] [address] [place], [address] Determination of erythrocyte mean corpuscular volume (MCV)Ordered By: Gian Villanueva on 04-04-2024 MCV (RBC) [Entitic vol] 85.6 fL 81-99 [facility] Emergency Department Summary on 04-04-2024 Emergency Department Summary Normal [facility] Erythrocyte distribution wid th ratioOrdered By: Gian Villanueva on 04-04-2024 Erythrocyte distribution width (RBC) [Ratio] 15.2 % 11.6-14.6 [facility] Erythrocyte distribution wid th standard deviationOrdered By: Gian Villanueva on 04-04-2024 Erythrocyte distribution width (RBC) [Entitic vol] 47.2 fL 35.1-43.9 [facility] H AND P Exam - Hospitaliston 04-04-2024 H&P Exam - Hospitalist Normal [facility] Hematocrit Auto (Bld) [Volum e fraction]Ordered By: Gian Villanueva on 04-04-2024 Hematocrit (Bld) [Volume fraction] 39.1 % 37-47 [facility] Immature granulocytes/100 WB C Auto (Bld)Ordered By: Gian Villanueva on 04-04-2024 Immature granulocytes/100 WBC (Bld) 0.800 % 0.0-0.9 [facility] Comment on above: IG% - Immature Granu locytes (promyelocytes, myelocytes and metamyelocytes) > 1% indicates that a LEFT SHIFT is Present. Laboratory - Chemistry and C hemistry - challengeOrdered By: Gian Villanueva on 04-04-2024 Albumin/Globulin [Mass ratio] 0.8 {ratio} 0.9-2.4 [facility] ALP [Catalytic activity/Vol] 76 U/L 45-117 [facility] ALT [Catalytic activity/Vol] 24 U/L 13-56 [facility] CO2 [Moles/Vol] 29.0 mmol/L 21.0-32.0 [facility] Globulin (S) [Mass/Vol] 4.3 g/dL 2.2-4.2 [facility] Urea nitrogen/Creatinine [Mass ratio] 20.0 mg/mg 10-20 [facility] Laboratory - Hematology and Cell countsOrdered By: Gian Villanueva on 04-04-2024 MCH (RBC) [Entitic mass] 27.1 pg 27.0-32.0 [facility] MCHC (RBC) [Mass/Vol] 31.7 g/dL 32-36 [facility] Nucleated RBC/100 WBC (Bld) [Ratio] 0 % 0-5 [facility] Platelet mean volume (Bld) [Entitic vol] 10.3 fL 6.2-12.0 [facility] Platelets (Bld) [#/Vol] 187 10*3/uL 150-450 [facility] Lactic Acidon 04-04-2024 Lactate [Moles/Vol] 1.4 mmol/L Normal 0.4-1.9 [facility] Comment on above: Order Comment: Y Performed By: #### L 503.6005, M200.1000, L500.4050 ####[facility] [address] [place], [address] No Panel InformationOrdered By: Gian Villanueva on 04-04-2024 Estimated Creatinine Clearance Calc 118.07 ml/min [facility] Estimated GFR (MDRD) Amer 70 mL/min >60 [facility] Comment on above: GFR Calc Estimated GFR (MDRD) Non-Af Amer 58 mL/min >60 [facility] Comment on above: Non- GFR Calc RBC Auto (Bld) [#/Vol]Ordere d By: Gian Villanueva on 04-04-2024 RBC (Bld) [#/Vol] 4.57 10*6/uL 4.2-5.4 [facility] Serum or plasma calcium herson urement (mass/volume)Ordered By: Gian Villanueva on 04-04-2024 Calcium [Mass/Vol] 9.1 mg/dL 8.5-10.1 [facility] Serum or plasma creatinine m easurement (mass/volume)Ordered By: Gian Villanueva on 04-04-2024 Creatinine [Mass/Vol] 1.05 mg/dL 0.55-1.02 [facility] Comment on above: The validity of the calculated GFR & GFRAA in patients over 70 years has not been determined. Clinical correlation is essential. Serum or plasma urea nitroge n measurement (mass/volume)Ordered By: Gian Villanueva on 04-04-2024 Urea nitrogen [Mass/Vol] 21 mg/dL 7-18 [facility] Thin prep Papanicolaou smear with manual screeningOrdered By: Gian Villanueva on 04-04-2024 Thin prep Papanicolaou smear with manual screening 3.3 g/dL 3.2-5.0 [facility] Thin prep Papanicolaou smear with manual screening 26 U/L 15-37 [facility] Thin prep Papanicolaou smear with manual screening 5 5-15 [facility] Office Visiton 09-04-2023 Follow-up visit [id number] Jesusita England 1970 F Date Provider Department Center 09/04/2023 [id number] ID None Family History Problem Relation Age of Onset Other Mother Comments: Alzheimers disease Family Status - Relation Status Age at Mother Father Other Sister Alive Sister Alive Daughter Alive Level of Service:29066 [place] OFFICE/OUTPATIENT NEW MODERATE MDM 45-59 MINUTES Reason for Visit and Comments: Follow-up [855657] - Recurrent cellulitis (est pt, new to Dr. Tavera) [facility] Progress Noteon 09-04-2023 Progress Note Subjective Patient [...] symptoms worsen or fail to improve. Normal [facility] Culture, Blood (WB)on 2022 CUB No growth in 5 days. Normal [facility] Comment on above: Performed By: #### M 200.1000 ####[facility] [address] [place], [address] CUB No growth in 5 days. Normal [facility] Comment on above: Performed By: #### M 200.1000 ####[facility] [address] [place], [address] Absolute lymphocyte countOrd ered By: Calderon Ware on 08-21-2023 Lymphocytes Auto (Unsp spec) [#/Vol] 1.17 10*3/uL 0.83-4.51 [facility] Basic Metabolic Profile (BMP )on 08-21-2023 BUN/CRE 15.9 RATIO Normal 10-20 [facility] Comment on above: Performed By: #### L 100.0100, L500.2500 ####[facility] [address] [place], [address] CA,Total 8.6 mg/dL Normal 8.5-10.1 [facility] Comment on above: Performed By: #### L 100.0100, L500.2500 ####[facility] [address] [place], [address] Chloride [Moles/Vol] 108 mmol/L High 98-107 [facility] Comment on above: Performed By: #### L 100.0100, L500.2500 ####[facility] [address] [place], [address] CO2 [Moles/Vol] 27.0 mmol/L Normal 21.0-32.0 [facility] Comment on above: Performed By: #### L 100.0100, L500.2500 ####[facility] [address] [place], [address] Creatinine [Mass/Vol] 0.69 mg/dL Normal 0.55-1.02 [facility] Comment on above: Result Comment: The validity of the calculated GFR GFRAA in patients over70 years has not been determined. Clinical correlation isessential. Performed By: #### L 100.0100, L500.2500 ####[facility] [address] [place], [address] ECRCL 79.55 ml/min Normal [facility] Comment on above: Performed By: #### L 100.0100, L500.2500 ####[facility] [address] [place], [address] EST GFR - AA 113 mL/min Normal >60 [facility] Comment on above: Result Comment: Afri can Anguillan GFR Calc Performed By: #### L 100.0100, L500.2500 ####[facility] [address] [place], [address] GAP 3 Low 5-15 [facility] Comment on above: Performed By: #### L 100.0100, L500.2500 ####[facility] [address] [place], [address] GFR/1.73 sq M.predicted among non-blacks MDRD (S/P/Bld) [Vol rate/Area] 94 mL/min/{1.73_m2} Normal >60 [facility] Comment on above: Result Comment: Non- GFR Calc Performed By: #### L 100.0100, L500.2500 ####[facility] [address] [place], [address] Glucose [Mass/Vol] 108 mg/dL High 74-106 [facility] Comment on above: Result Comment: Fast ing Glucose result from 100 to 125 mg/dLsuggests IMPAIRED HOMEOSTASIS per A.D.A. criteria. Performed By: #### L 100.0100, L500.2500 ####[facility] [address] [place], [address] Potassium [Moles/Vol] 3.9 mmol/L Normal 3.5-5.1 [facility] Comment on above: Performed By: #### L 100.0100, L500.2500 ####[facility] [address] [place], [address] Sodium [Moles/Vol] 138 mmol/L Normal 136-145 [facility] Comment on above: Performed By: #### L 100.0100, L500.2500 ####[facility] [address] [place], [address] Urea nitrogen [Mass/Vol] 11 mg/dL Normal 7-18 [facility] Comment on above: Performed By: #### L 100.0100, L500.2500 ####[facility] [address] [place], [address] Basophil percentageOrdered B y: Calderon Ware on 08-21-2023 Basophils/100 WBC (Bld) 0.2 % 0-1 [facility] Chloride [Moles/Vol] 108 mmol/L 98-107 [facility] Eosinophils/100 WBC (Bld) 0.2 % 0-5 [facility] Glucose [Mass/Vol] 108 mg/dL 74-106 [facility] Comment on above: Fasting Glucose resu lt from 100 to 125 mg/dL suggests IMPAIRED HOMEOSTASIS per A.D.A. criteria. Neutrophils (Bld) [#/Vol] 4.4 10*3/uL 2.0-7.7 [facility] Neutrophils/100 WBC (Bld) 69.7 % 47-70 [facility] Potassium [Moles/Vol] 3.9 mmol/L 3.5-5.1 [facility] Sodium [Moles/Vol] 138 mmol/L 136-145 [facility] WBC (Bld) [#/Vol] 6.3 10*3/uL 4.4-11.0 [facility] Blood erythrocytes count (nu mber/volume)Ordered By: Calderon Ware on 08-21-2023 RBC (Bld) [#/Vol] 3.88 10*6/uL 4.2-5.4 [facility] Blood hemoglobin measurement (mass/volume)Ordered By: Calderon Ware on 08-21-2023 Hemoglobin (Bld) [Mass/Vol] 10.6 g/dL 12.0-15.0 [facility] Blood lymphocytes/100 leukoc ytesOrdered By: Calderon Ware on 08-21-2023 Lymphocytes/100 WBC (Bld) 18.6 % 19-41 [facility] Blood monocytes/100 leukocyt esOrdered By: Calderon Ware on 08-21-2023 Monocytes/100 WBC (Bld) 9.9 % 0-10 [facility] Blood platelet mean volumeOr dered By: Calderon Ware on 08-21-2023 Platelet mean volume (Bld) [Entitic vol] 9.8 fL 6.2-12.0 [facility] CBC W/Diff, Automatedon 08-01 Absolute Lymph 1.17 X10 3/uL Normal 0.83-4.51 [facility] Comment on above: Performed By: #### L 100.0100, L500.2500 ####[facility] [address] [place], [address] Absolute Neut 4.4 X10 3/uL Normal 2.0-7.7 [facility] Comment on above: Performed By: #### L 100.0100, L500.2500 ####[facility] [address] [place], [address] Basophils/100 WBC (Bld) 0.2 % Normal 0-1 [facility] Comment on above: Performed By: #### L 100.0100, L500.2500 ####[facility] [address] [place], [address] Eosinophils/100 WBC (Bld) 0.2 % Normal 0-5 [facility] Comment on above: Performed By: #### L 100.0100, L500.2500 ####[facility] [address] [place], [address] Erythrocyte distribution width (RBC) [Ratio] 15.6 % High 11.6-14.6 [facility] Comment on above: Performed By: #### L 100.0100, L500.2500 ####[facility] [address] [place], [address] Hematocrit (Bld) [Volume fraction] 33.8 % Low 37-47 [facility] Comment on above: Performed By: #### L 100.0100, L500.2500 ####[facility] [address] [place], [address] Hemoglobin (Bld) [Mass/Vol] 10.6 g/dL Low 12.0-15.0 [facility] Comment on above: Performed By: #### L 100.0100, L500.2500 ####[facility] [address] [place], [address] IG% 1.400 High 0.0-0.9 [facility] Comment on above: Result Comment: IG% - Immature Granulocytes (promyelocytes, myelocytes andmetamyelocytes) > 1% indicates that a LEFT SHIFT is Present. Performed By: #### L 100.0100, L500.2500 ####[facility] [address] [place], [address] Lymphocytes/100 WBC (Bld) 18.6 % Low 19-41 [facility] Comment on above: Performed By: #### L 100.0100, L500.2500 ####[facility] [address] [place], [address] MCH (RBC) [Entitic mass] 27.3 pg Normal 27.0-32.0 [facility] Comment on above: Performed By: #### L 100.0100, L500.2500 ####[facility] [address] [place], [address] MCHC (RBC) [Mass/Vol] 31.4 g/dL Low 32-36 [facility] Comment on above: Performed By: #### L 100.0100, L500.2500 ####[facility] [address] [place], [address] MCV (RBC) [Entitic vol] 87.1 fL Normal 81-99 [facility] Comment on above: Performed By: #### L 100.0100, L500.2500 ####[facility] [address] [place], [address] Monocytes/100 WBC (Bld) 9.9 % Normal 0-10 [facility] Comment on above: Performed By: #### L 100.0100, L500.2500 ####[facility] [address] [place], [address] Neutrophils/100 WBC (Bld) 69.7 % Normal 47-70 [facility] Comment on above: Performed By: #### L 100.0100, L500.2500 ####[facility] [address] [place], [address] Nucleated RBC (Bld) [#/Vol] 0 10*3/uL Normal 0-5 [facility] Comment on above: Performed By: #### L 100.0100, L500.2500 ####[facility] [address] [place], [address] Platelet mean volume (Bld) [Entitic vol] 9.8 fL Normal 6.2-12.0 [facility] Comment on above: Performed By: #### L 100.0100, L500.2500 ####[facility] [address] [place], [address] Platelets (Bld) [#/Vol] 165 10*3/uL Normal 150-450 [facility] Comment on above: Performed By: #### L 100.0100, L500.2500 ####[facility] [address] [place], [address] RBC (Bld) [#/Vol] 3.88 10*6/uL Low 4.2-5.4 [facility] Comment on above: Performed By: #### L 100.0100, L500.2500 ####[facility] [address] [place], [address] RDW SD 50.3 fl High 35.1-43.9 [facility] Comment on above: Performed By: #### L 100.0100, L500.2500 ####[facility] [address] [place], [address] WBC (Bld) [#/Vol] 6.3 10*3/uL Normal 4.4-11.0 [facility] Comment on above: Performed By: #### L 100.0100, L500.2500 ####[facility] [address] [place], [address] Determination of erythrocyte mean corpuscular volume (MCV)Ordered By: Calderon Ware on 08-21-2023 MCV (RBC) [Entitic vol] 87.1 fL 81-99 [facility] Hematocrit Auto (Bld) [Volum e fraction]Ordered By: Calderon Ware on 08-21-2023 Hematocrit (Bld) [Volume fraction] 33.8 % 37-47 [facility] Laboratory - Chemistry and C hemistry - challengeOrdered By: Calderon Ware on 08-21-2023 CO2 [Moles/Vol] 27.0 mmol/L 21.0-32.0 [facility] Urea nitrogen/Creatinine [Mass ratio] 15.9 mg/mg 10-20 [facility] Laboratory - Hematology and Cell countsOrdered By: Calderon Ware on 08-21-2023 Erythrocyte distribution width (RBC) [Entitic vol] 50.3 fL 35.1-43.9 [facility] Erythrocyte distribution width (RBC) [Ratio] 15.6 % 11.6-14.6 [facility] Immature granulocytes/100 WBC (Bld) 1.400 % 0.0-0.9 [facility] Comment on above: IG% - Immature Granu locytes (promyelocytes, myelocytes and metamyelocytes) > 1% indicates that a LEFT SHIFT is Present. MCH (RBC) [Entitic mass] 27.3 pg 27.0-32.0 [facility] Nucleated RBC/100 WBC (Bld) [Ratio] 0 % 0-5 [facility] MCHC Auto (RBC) [Mass/Vol]Or dered By: Calderon Ware on 08-21-2023 MCHC (RBC) [Mass/Vol] 31.4 g/dL 32-36 [facility] No Panel InformationOrdered By: Calderon Ware on 08-21-2023 Estimated Creatinine Clearance Calc 79.55 ml/min [facility] Estimated GFR (MDRD) Amer 113 mL/min >60 [facility] Comment on above: GFR Calc Estimated GFR (MDRD) Non-Af Amer 94 mL/min >60 [facility] Comment on above: Non- GFR Calc Platelets bldOrdered By: Liborio Ware on 08-21-2023 Platelets (Bld) [#/Vol] 165 10*3/uL 150-450 [facility] Serum or plasma calcium herson urement (mass/volume)Ordered By: Calderon Ware on 08-21-2023 Calcium [Mass/Vol] 8.6 mg/dL 8.5-10.1 [facility] Serum or plasma creatinine m easurement (mass/volume)Ordered By: Calderon Ware on 08-21-2023 Creatinine [Mass/Vol] 0.69 mg/dL 0.55-1.02 [facility] Comment on above: The validity of the calculated GFR & GFRAA in patients over 70 years has not been determined. Clinical correlation is essential. Serum or plasma urea nitroge n measurement (mass/volume)Ordered By: Calderon Ware on 08-21-2023 Urea nitrogen [Mass/Vol] 11 mg/dL 7-18 [facility] Thin prep Papanicolaou smear with manual screeningOrdered By: Calderon Ware on 08-21-2023 Thin prep Papanicolaou smear with manual screening 3 5-15 [facility] Basic Metabolic Profile (BMP )on 08-20-2023 BUN/CRE 17.4 RATIO Normal 10-20 [facility] Comment on above: Performed By: #### L 500.2500, L100.0100 ####[facility] [address] [place], [address] CA,Total 8.5 mg/dL Normal 8.5-10.1 [facility] Comment on above: Performed By: #### L 500.2500, L100.0100 ####[facility] [address] [place], [address] Chloride [Moles/Vol] 110 mmol/L High 98-107 [facility] Comment on above: Performed By: #### L 500.2500, L100.0100 ####[facility] [address] [place], [address] CO2 [Moles/Vol] 25.0 mmol/L Normal 21.0-32.0 [facility] Comment on above: Performed By: #### L 500.2500, L100.0100 ####[facility] [address] [place], [address] Creatinine [Mass/Vol] 0.69 mg/dL Normal 0.55-1.02 [facility] Comment on above: Result Comment: The validity of the calculated GFR GFRAA in patients over70 years has not been determined. Clinical correlation isessential. Performed By: #### L 500.2500, L100.0100 ####[facility] [address] [place], [address] ECRCL 79.55 ml/min Normal [facility] Comment on above: Performed By: #### L 500.2500, L100.0100 ####[facility] [address] [place], [address] EST GFR - AA 114 mL/min Normal >60 [facility] Comment on above: Result Comment: Afri can Anguillan GFR Calc Performed By: #### L 500.2500, L100.0100 ####[facility] [address] [place], [address] GAP 3 Low 5-15 [facility] Comment on above: Performed By: #### L 500.2500, L100.0100 ####[facility] [address] [place], [address] GFR/1.73 sq M.predicted among non-blacks MDRD (S/P/Bld) [Vol rate/Area] 94 mL/min/{1.73_m2} Normal >60 [facility] Comment on above: Result Comment: Non- GFR Calc Performed By: #### L 500.2500, L100.0100 ####[facility] [address] [place], [address] Glucose [Mass/Vol] 112 mg/dL High 74-106 [facility] Comment on above: Result Comment: Fast ing Glucose result from 100 to 125 mg/dLsuggests IMPAIRED HOMEOSTASIS per A.D.A. criteria. Performed By: #### L 500.2500, L100.0100 ####[facility] [address] [place], [address] Potassium [Moles/Vol] 3.8 mmol/L Normal 3.5-5.1 [facility] Comment on above: Performed By: #### L 500.2500, L100.0100 ####[facility] [address] [place], [address] Sodium [Moles/Vol] 138 mmol/L Normal 136-145 [facility] Comment on above: Performed By: #### L 500.2500, L100.0100 ####[facility] [address] [place], [address] Urea nitrogen [Mass/Vol] 12 mg/dL Normal 7-18 [facility] Comment on above: Performed By: #### L 500.2500, L100.0100 ####[facility] [address] [place], [address] CBC W/Diff, Automatedon 09-2 Absolute Lymph 0.93 X10 3/uL Normal 0.83-4.51 [facility] Comment on above: Performed By: #### L 500.2500, L100.0100 ####[facility] [address] [place], [address] Absolute Neut 5.0 X10 3/uL Normal 2.0-7.7 [facility] Comment on above: Performed By: #### L 500.2500, L100.0100 ####[facility] [address] [place], [address] Basophils/100 WBC (Bld) 0.2 % Normal 0-1 [facility] Comment on above: Performed By: #### L 500.2500, L100.0100 ####[facility] [address] [place], [address] Eosinophils/100 WBC (Bld) 0.0 % Normal 0-5 [facility] Comment on above: Performed By: #### L 500.2500, L100.0100 ####[facility] [address] [place], [address] Erythrocyte distribution width (RBC) [Ratio] 15.6 % High 11.6-14.6 [facility] Comment on above: Performed By: #### L 500.2500, L100.0100 ####[facility] [address] [place], [address] Hematocrit (Bld) [Volume fraction] 33.3 % Low 37-47 [facility] Comment on above: Performed By: #### L 500.2500, L100.0100 ####[facility] [address] [place], [address] Hemoglobin (Bld) [Mass/Vol] 10.4 g/dL Low 12.0-15.0 [facility] Comment on above: Performed By: #### L 500.2500, L100.0100 ####[facility] [address] [place], [address] IG% 0.600 Normal 0.0-0.9 [facility] Comment on above: Result Comment: IG% - Immature Granulocytes (promyelocytes, myelocytes andmetamyelocytes) > 1% indicates that a LEFT SHIFT is Present. Performed By: #### L 500.2500, L100.0100 ####[facility] [address] [place], [address] Lymphocytes/100 WBC (Bld) 14.3 % Low 19-41 [facility] Comment on above: Performed By: #### L 500.2500, L100.0100 ####[facility] [address] [place], [address] MCH (RBC) [Entitic mass] 27.3 pg Normal 27.0-32.0 [facility] Comment on above: Performed By: #### L 500.2500, L100.0100 ####[facility] [address] [place], [address] MCHC (RBC) [Mass/Vol] 31.2 g/dL Low 32-36 [facility] Comment on above: Performed By: #### L 500.2500, L100.0100 ####[facility] [address] [place], [address] MCV (RBC) [Entitic vol] 87.4 fL Normal 81-99 [facility] Comment on above: Performed By: #### L 500.2500, L100.0100 ####[facility] [address] [place], [address] Monocytes/100 WBC (Bld) 8.5 % Normal 0-10 [facility] Comment on above: Performed By: #### L 500.2500, L100.0100 ####[facility] [address] [place], [address] Neutrophils/100 WBC (Bld) 76.4 % High 47-70 [facility] Comment on above: Performed By: #### L 500.2500, L100.0100 ####[facility] [address] [place], [address] Nucleated RBC (Bld) [#/Vol] 0 10*3/uL Normal 0-5 [facility] Comment on above: Performed By: #### L 500.2500, L100.0100 ####[facility] [address] [place], [address] Platelet mean volume (Bld) [Entitic vol] 9.6 fL Normal 6.2-12.0 [facility] Comment on above: Performed By: #### L 500.2500, L100.0100 ####[facility] [address] [place], [address] Platelets (Bld) [#/Vol] 155 10*3/uL Normal 150-450 [facility] Comment on above: Performed By: #### L 500.2500, L100.0100 ####[facility] [address] [place], [address] RBC (Bld) [#/Vol] 3.81 10*6/uL Low 4.2-5.4 [facility] Comment on above: Performed By: #### L 500.2500, L100.0100 ####[facility] [address] [place], [address] RDW SD 49.9 fl High 35.1-43.9 [facility] Comment on above: Performed By: #### L 500.2500, L100.0100 ####[facility] [address] [place], [address] WBC (Bld) [#/Vol] 6.5 10*3/uL Normal 4.4-11.0 [facility] Comment on above: Performed By: #### L 500.2500, L100.0100 ####[facility] [address] [place], [address] Basic Metabolic Profile (BMP )on 08-19-2023 BUN/CRE 14.6 RATIO Normal - [facility] Comment on above: Performed By: #### L 501.5200, L500.2500, L100.0100 ####[facility] [address] [place], [address] CA,Total 8.2 mg/dL Low 8.5-10.1 [facility] Comment on above: Performed By: #### L 501.5200, L500.2500, L100.0100 ####[facility] [address] [place], [address] Chloride [Moles/Vol] 109 mmol/L High 98-107 [facility] Comment on above: Performed By: #### L 501.5200, L500.2500, L100.0100 ####[facility] [address] [place], [address] CO2 [Moles/Vol] 25.0 mmol/L Normal 21.0-32.0 [facility] Comment on above: Performed By: #### L 501.5200, L500.2500, L100.0100 ####[facility] [address] [place], [address] Creatinine [Mass/Vol] 0.75 mg/dL Normal 0.55-1.02 [facility] Comment on above: Result Comment: The validity of the calculated GFR GFRAA in patients over70 years has not been determined. Clinical correlation isessential. Performed By: #### L 501.5200, L500.2500, L100.0100 ####[facility] [address] [place], [address] ECRCL 73.19 ml/min Normal [facility] Comment on above: Performed By: #### L 501.5200, L500.2500, L100.0100 ####[facility] [address] [place], [address] EST GFR - AA 103 mL/min Normal >60 [facility] Comment on above: Result Comment: Afri can Anguillan GFR Calc Performed By: #### L 501.5200, L500.2500, L100.0100 ####[facility] [address] [place], [address] GAP 4 Low 5-15 [facility] Comment on above: Performed By: #### L 501.5200, L500.2500, L100.0100 ####[facility] [address] [place], [address] GFR/1.73 sq M.predicted among non-blacks MDRD (S/P/Bld) [Vol rate/Area] 85 mL/min/{1.73_m2} Normal >60 [facility] Comment on above: Result Comment: Non- GFR Calc Performed By: #### L 501.5200, L500.2500, L100.0100 ####[facility] [address] [place], [address] Glucose [Mass/Vol] 105 mg/dL Normal 74-106 [facility] Comment on above: Result Comment: Fast ing Glucose result from 100 to 125 mg/dLsuggests IMPAIRED HOMEOSTASIS per A.D.A. criteria. Performed By: #### L 501.5200, L500.2500, L100.0100 ####[facility] [address] [place], [address] Potassium [Moles/Vol] 3.8 mmol/L Normal 3.5-5.1 [facility] Comment on above: Performed By: #### L 501.5200, L500.2500, L100.0100 ####[facility] [address] [place], [address] Sodium [Moles/Vol] 138 mmol/L Normal 136-145 [facility] Comment on above: Performed By: #### L 501.5200, L500.2500, L100.0100 ####[facility] [address] [place], [address] Urea nitrogen [Mass/Vol] 11 mg/dL Normal 7-18 [facility] Comment on above: Performed By: #### L 501.5200, L500.2500, L100.0100 ####[facility] [address] [place], [address] CBC W/Diff, Automatedon 09-2 0-3 Absolute Lymph 0.70 X10 3/uL Low 0.83-4.51 [facility] Comment on above: Performed By: #### L 501.5200, L500.2500, L100.0100 ####[facility] [address] [place], [address] Absolute Neut 5.4 X10 3/uL Normal 2.0-7.7 [facility] Comment on above: Performed By: #### L 501.5200, L500.2500, L100.0100 ####[facility] [address] [place], [address] Basophils/100 WBC (Bld) 0.1 % Normal 0-1 [facility] Comment on above: Performed By: #### L 501.5200, L500.2500, L100.0100 ####[facility] [address] [place], [address] Eosinophils/100 WBC (Bld) 0.1 % Normal 0-5 [facility] Comment on above: Performed By: #### L 501.5200, L500.2500, L100.0100 ####[facility] [address] [place], [address] Erythrocyte distribution width (RBC) [Ratio] 15.9 % High 11.6-14.6 [facility] Comment on above: Performed By: #### L 501.5200, L500.2500, L100.0100 ####[facility] [address] [place], [address] Hematocrit (Bld) [Volume fraction] 33.6 % Low 37-47 [facility] Comment on above: Performed By: #### L 501.5200, L500.2500, L100.0100 ####[facility] [address] [place], [address] Hemoglobin (Bld) [Mass/Vol] 10.4 g/dL Low 12.0-15.0 [facility] Comment on above: Performed By: #### L 501.5200, L500.2500, L100.0100 ####[facility] [address] [place], [address] IG% 1.000 High 0.0-0.9 [facility] Comment on above: Result Comment: IG% - Immature Granulocytes (promyelocytes, myelocytes andmetamyelocytes) > 1% indicates that a LEFT SHIFT is Present. Performed By: #### L 501.5200, L500.2500, L100.0100 ####[facility] [address] [place], [address] Lymphocytes/100 WBC (Bld) 10.2 % Low 19-41 [facility] Comment on above: Performed By: #### L 501.5200, L500.2500, L100.0100 ####[facility] [address] [place], [address] MCH (RBC) [Entitic mass] 27.2 pg Normal 27.0-32.0 [facility] Comment on above: Performed By: #### L 501.5200, L500.2500, L100.0100 ####[facility] [address] [place], [address] MCHC (RBC) [Mass/Vol] 31.0 g/dL Low 32-36 [facility] Comment on above: Performed By: #### L 501.5200, L500.2500, L100.0100 ####[facility] [address] [place], [address] MCV (RBC) [Entitic vol] 88.0 fL Normal 81-99 [facility] Comment on above: Performed By: #### L 501.5200, L500.2500, L100.0100 ####[facility] [address] [place], [address] Monocytes/100 WBC (Bld) 9.2 % Normal 0-10 [facility] Comment on above: Performed By: #### L 501.5200, L500.2500, L100.0100 ####[facility] [address] [place], [address] Neutrophils/100 WBC (Bld) 79.4 % High 47-70 [facility] Comment on above: Performed By: #### L 501.5200, L500.2500, L100.0100 ####[facility] [address] [place], [address] Nucleated RBC (Bld) [#/Vol] 0 10*3/uL Normal 0-5 [facility] Comment on above: Performed By: #### L 501.5200, L500.2500, L100.0100 ####[facility] [address] [place], [address] Platelet mean volume (Bld) [Entitic vol] 9.7 fL Normal 6.2-12.0 [facility] Comment on above: Performed By: #### L 501.5200, L500.2500, L100.0100 ####[facility] [address] [place], [address] Platelets (Bld) [#/Vol] 143 10*3/uL Low 150-450 [facility] Comment on above: Performed By: #### L 501.5200, L500.2500, L100.0100 ####[facility] [address] [place], [address] RBC (Bld) [#/Vol] 3.82 10*6/uL Low 4.2-5.4 [facility] Comment on above: Performed By: #### L 501.5200, L500.2500, L100.0100 ####[facility] [address] [place], [address] RDW SD 51.7 fl High 35.1-43.9 [facility] Comment on above: Performed By: #### L 501.5200, L500.2500, L100.0100 ####[facility] [address] [place], [address] WBC (Bld) [#/Vol] 6.8 10*3/uL Normal 4.4-11.0 [facility] Comment on above: Performed By: #### L 501.5200, L500.2500, L100.0100 ####[facility] [address] [place], [address] Consultation - Infectious Dx on 08-19-2023 Consultation - Infectious Dx Normal [facility] Laboratory - Chemistry and C hemistry - challengeOrdered By: Calderon Ware on 08-19-2023 Magnesium [Mass/Vol] 2.0 mg/dL 1.6-2.6 [facility] Magnesiumon 08-19-2023 Magnesium [Mass/Vol] 2.0 mg/dL Normal 1.6-2.6 [facility] Comment on above: Performed By: #### L 501.5200, L500.2500, L100.0100 ####[facility] [address] [place], [address] Basic Metabolic Profile (BMP )on 08-18-2023 BUN/CRE 21.0 RATIO High 10-20 [facility] Comment on above: Performed By: #### L 500.2500, L100.0100 ####[facility] [address] [place], [address] CA,Total 7.9 mg/dL Low 8.5-10.1 [facility] Comment on above: Performed By: #### L 500.2500, L100.0100 ####[facility] [address] [place], [address] Chloride [Moles/Vol] 105 mmol/L Normal 98-107 [facility] Comment on above: Performed By: #### L 500.2500, L100.0100 ####[facility] [address] [place], [address] CO2 [Moles/Vol] 28.0 mmol/L Normal 21.0-32.0 [facility] Comment on above: Performed By: #### L 500.2500, L100.0100 ####[facility] [address] [place], [address] Creatinine [Mass/Vol] 0.86 mg/dL Normal 0.55-1.02 [facility] Comment on above: Result Comment: The validity of the calculated GFR GFRAA in patients over70 years has not been determined. Clinical correlation isessential. Performed By: #### L 500.2500, L100.0100 ####[facility] [address] [place], [address] ECRCL 63.83 ml/min Normal [facility] Comment on above: Performed By: #### L 500.2500, L100.0100 ####[facility] [address] [place], [address] EST GFR - AA 88 mL/min Normal >60 [facility] Comment on above: Result Comment: Afri can Anguillan GFR Calc Performed By: #### L 500.2500, L100.0100 ####[facility] [address] [place], [address] GAP 4 Low 5-15 [facility] Comment on above: Performed By: #### L 500.2500, L100.0100 ####[facility] [address] [place], [address] GFR/1.73 sq M.predicted among non-blacks MDRD (S/P/Bld) [Vol rate/Area] 73 mL/min/{1.73_m2} Normal >60 [facility] Comment on above: Result Comment: Non- GFR Calc Performed By: #### L 500.2500, L100.0100 ####[facility] [address] [place], [address] Glucose [Mass/Vol] 99 mg/dL Normal 74-106 [facility] Comment on above: Performed By: #### L 500.2500, L100.0100 ####[facility] [address] [place], [address] Potassium [Moles/Vol] 4.1 mmol/L Normal 3.5-5.1 [facility] Comment on above: Performed By: #### L 500.2500, L100.0100 ####[facility] [address] [place], [address] Sodium [Moles/Vol] 137 mmol/L Normal 136-145 [facility] Comment on above: Performed By: #### L 500.2500, L100.0100 ####[facility] [address] [place], [address] Urea nitrogen [Mass/Vol] 18 mg/dL Normal 7-18 [facility] Comment on above: Performed By: #### L 500.2500, L100.0100 ####[facility] [address] [place], [address] Basophil percentageOrdered B y: Mandy Arce on 08-18-2023 Lactate [Moles/Vol] 1.1 mmol/L 0.4-2.0 [facility] Lactate [Moles/Vol] 2.4 mmol/L Invalid Interpretation Code 0.4-1.9 [facility] Comment on above: Critical Result(s) C alled at: 00:02:08 08/18/2023 by: Vladimir Ruth. to SATHYA (RN) (ED) Results read back by same. Order Comment: Y Result Comment: Crit ical Result(s) Called at: 00:02:08 08/18/2023 by: Zheng. to SATHYA (RN) (ED) Results read back by same. Performed By: #### L 503.6005, L300.4310, L300.3900 ####[facility] [address] [place], [address] CBC W/Diff, Automatedon 07-31 Absolute Lymph 0.71 X10 3/uL Low 0.83-4.51 [facility] Comment on above: Performed By: #### L 500.2500, L100.0100 ####[facility] [address] [place], [address] Absolute Neut 14.4 X10 3/uL High 2.0-7.7 [facility] Comment on above: Performed By: #### L 500.2500, L100.0100 ####[facility] [address] [place], [address] Basophils/100 WBC (Bld) 0.1 % Normal 0-1 [facility] Comment on above: Performed By: #### L 500.2500, L100.0100 ####[facility] [address] [place], [address] Eosinophils/100 WBC (Bld) 0.0 % Normal 0-5 [facility] Comment on above: Performed By: #### L 500.2500, L100.0100 ####[facility] [address] [place], [address] Erythrocyte distribution width (RBC) [Ratio] 15.4 % High 11.6-14.6 [facility] Comment on above: Performed By: #### L 500.2500, L100.0100 ####[facility] [address] [place], [address] Hematocrit (Bld) [Volume fraction] 35.3 % Low 37-47 [facility] Comment on above: Performed By: #### L 500.2500, L100.0100 ####[facility] [address] [place], [address] Hemoglobin (Bld) [Mass/Vol] 11.0 g/dL Low 12.0-15.0 [facility] Comment on above: Performed By: #### L 500.2500, L100.0100 ####[facility] [address] [place], [address] IG% 1.000 High 0.0-0.9 [facility] Comment on above: Result Comment: IG% - Immature Granulocytes (promyelocytes, myelocytes andmetamyelocytes) > 1% indicates that a LEFT SHIFT is Present. Performed By: #### L 500.2500, L100.0100 ####[facility] [address] [place], [address] Lymphocytes/100 WBC (Bld) 4.5 % Low 19-41 [facility] Comment on above: Performed By: #### L 500.2500, L100.0100 ####[facility] [address] [place], [address] MCH (RBC) [Entitic mass] 27.3 pg Normal 27.0-32.0 [facility] Comment on above: Performed By: #### L 500.2500, L100.0100 ####[facility] [address] [place], [address] MCHC (RBC) [Mass/Vol] 31.2 g/dL Low 32-36 [facility] Comment on above: Performed By: #### L 500.2500, L100.0100 ####[facility] [address] [place], [address] MCV (RBC) [Entitic vol] 87.6 fL Normal 81-99 [facility] Comment on above: Performed By: #### L 500.2500, L100.0100 ####[facility] [address] [place], [address] Monocytes/100 WBC (Bld) 3.6 % Normal 0-10 [facility] Comment on above: Performed By: #### L 500.2500, L100.0100 ####[facility] [address] [place], [address] Neutrophils/100 WBC (Bld) 90.8 % High 47-70 [facility] Comment on above: Performed By: #### L 500.2500, L100.0100 ####[facility] [address] [place], [address] Nucleated RBC (Bld) [#/Vol] 0 10*3/uL Normal 0-5 [facility] Comment on above: Performed By: #### L 500.2500, L100.0100 ####[facility] [address] [place], [address] Platelet mean volume (Bld) [Entitic vol] 9.7 fL Normal 6.2-12.0 [facility] Comment on above: Performed By: #### L 500.2500, L100.0100 ####[facility] [address] [place], [address] Platelets (Bld) [#/Vol] 165 10*3/uL Normal 150-450 [facility] Comment on above: Performed By: #### L 500.2500, L100.0100 ####[facility] [address] [place], [address] RBC (Bld) [#/Vol] 4.03 10*6/uL Low 4.2-5.4 [facility] Comment on above: Performed By: #### L 500.2500, L100.0100 ####[facility] [address] [place], [address] RDW SD 49.7 fl High 35.1-43.9 [facility] Comment on above: Performed By: #### L 500.2500, L100.0100 ####[facility] [address] [place], [address] WBC (Bld) [#/Vol] 15.8 10*3/uL High 4.4-11.0 [facility] Comment on above: Performed By: #### L 500.2500, L100.0100 ####[facility] [address] [place], [address] Lactic Acidon 08-18-2023 Lactate [Moles/Vol] 1.1 mmol/L Normal 0.4-1.9 [facility] Comment on above: Performed By: #### L 503.6005 ####[facility] [address] [place], [address] 12 Lead EKGon 08-17-2023 12 Lead EKG Normal [facility] Absolute lymphocyte countOrd ered By: Mandy Arce on 08-17-2023 Lymphocytes Auto (Unsp spec) [#/Vol] 0.54 10*3/uL 0.83-4.51 [facility] Basophil percentageOrdered B y: Mandy Arce on 08-17-2023 Bilirubin [Mass/Vol] 0.40 mg/dL Normal 0.20-1.00 [facility] Comment on above: For patients on eltr ombopag therapy, use of [employer] TBIL is not recommended. Result Comment: For patients on eltrombopag therapy, use of [employer] TBIL is not recommended. Performed By: #### L 500.4050, L501.6710, L100.0100, L101.9900 ####[facility] [address] [place], [address] Chloride [Moles/Vol] 103 mmol/L Normal 98-107 [facility] Comment on above: Performed By: #### L 500.4050, L501.6710, L100.0100, L101.9900 ####[facility] [address] [place], [address] Glucose [Mass/Vol] 101 mg/dL Normal 74-106 [facility] Comment on above: Fasting Glucose resu lt from 100 to 125 mg/dL suggests IMPAIRED HOMEOSTASIS per A.D.A. criteria. Result Comment: Fast ing Glucose result from 100 to 125 mg/dLsuggests IMPAIRED HOMEOSTASIS per A.D.A. criteria. Performed By: #### L 500.4050, L501.6710, L100.0100, L101.9900 ####[facility] [address] [place], [address] Potassium [Moles/Vol] 4.6 mmol/L Normal 3.5-5.1 [facility] Comment on above: Performed By: #### L 500.4050, L501.6710, L100.0100, L101.9900 ####[facility] [address] [place], [address] Sodium [Moles/Vol] 136 mmol/L Normal 136-145 [facility] Comment on above: Performed By: #### L 500.4050, L501.6710, L100.0100, L101.9900 ####[facility] [address] [place], [address] Basophils/100 WBC (Bld) 0.1 % 0-1 [facility] Eosinophils/100 WBC (Bld) 0.0 % 0-5 [facility] Neutrophils (Bld) [#/Vol] 15.3 10*3/uL 2.0-7.7 [facility] Neutrophils/100 WBC (Bld) 90.9 % 47-70 [facility] Protein [Mass/Vol] 7.6 g/dL 6.4-8.2 [facility] WBC (Bld) [#/Vol] 16.8 10*3/uL 4.4-11.0 [facility] Blood erythrocytes count (nu mber/volume)Ordered By: Mandy Arce on 08-17-2023 RBC (Bld) [#/Vol] 4.57 10*6/uL 4.2-5.4 [facility] Blood hemoglobin measurement (mass/volume)Ordered By: Mandy Arce on 08-17-2023 Hemoglobin (Bld) [Mass/Vol] 12.5 g/dL 12.0-15.0 [facility] Blood lymphocytes/100 leukoc ytesOrdered By: Mandy Arce on 08-17-2023 Lymphocytes/100 WBC (Bld) 3.2 % 19-41 [facility] Blood monocytes/100 leukocyt esOrdered By: Mandy Arce on 08-17-2023 Monocytes/100 WBC (Bld) 5.0 % 0-10 [facility] Blood platelet mean volumeOr dered By: Mandy Arce on 08-17-2023 Platelet mean volume (Bld) [Entitic vol] 10.0 fL 6.2-12.0 [facility] CBC W/Diff, AutomatedOrdered By: Mandy Arce on 08-17-2023 Anisocytosis Ql (Bld) 1+ Normal [facility] Comment on above: Performed By: #### L 500.4050, L501.6710, L100.0100, L101.9900 ####[facility] [address] [place], [address] CRPon 08-17-2023 C-REACTIVE PROT 53.20 mg/L High 0.0-3.0 [facility] Comment on above: Result Comment: C-Re active Protein (CRP) provides useful information for thediagnosis, therapy and monitoring of inflammatory processesand associated diseases. For the evaluation of Relative Riskfor Cardiovascular Disease, a High Sensitivity CRP (HSCRP)should be ordered. Performed By: #### L 500.4050, L501.6710, L100.0100, L101.9900 ####[facility] [address] [place], [address] Chest 1 View (Portable)on Chest 1 View (Portable) Normal [facility] Comprehensive Metabolic Prof ilon 08-17-2023 ALK P 81 U/L Normal 45-117 [facility] Comment on above: Performed By: #### L 500.4050, L501.6710, L100.0100, L101.9900 ####[facility] [address] [place], [address] AST [Catalytic activity/Vol] 15 U/L Normal 15-37 [facility] Comment on above: Performed By: #### L 500.4050, L501.6710, L100.0100, L101.9900 ####[facility] [address] [place], [address] BUN/CRE 21.8 RATIO High 10-20 [facility] Comment on above: Performed By: #### L 500.4050, L501.6710, L100.0100, L101.9900 ####[facility] [address] [place], [address] CA,Total 8.8 mg/dL Normal 8.5-10.1 [facility] Comment on above: Performed By: #### L 500.4050, L501.6710, L100.0100, L101.9900 ####[facility] [address] [place], [address] EST GFR - AA 82 mL/min Normal >60 [facility] Comment on above: Result Comment: Afri can Anguillan GFR Calc Performed By: #### L 500.4050, L501.6710, L100.0100, L101.9900 ####[facility] [address] [place], [address] GAP 4 Low 5-15 [facility] Comment on above: Performed By: #### L 500.4050, L501.6710, L100.0100, L101.9900 ####[facility] [address] [place], [address] GFR/1.73 sq M.predicted among non-blacks MDRD (S/P/Bld) [Vol rate/Area] 68 mL/min/{1.73_m2} Normal >60 [facility] Comment on above: Result Comment: Non- GFR Calc Performed By: #### L 500.4050, L501.6710, L100.0100, L101.9900 ####[facility] [address] [place], [address] T PROT 7.6 g/dL Normal 6.4-8.2 [facility] Comment on above: Performed By: #### L 500.4050, L501.6710, L100.0100, L101.9900 ####[facility] [address] [place], [address] Comprehensive Metabolic Prof ilOrdered By: Mandy Arce on 08-17-2023 ALT [Catalytic activity/Vol] 19 U/L Normal 13-56 [facility] Comment on above: Performed By: #### L 500.4050, L501.6710, L100.0100, L101.9900 ####[facility] [address] [place], [address] CO2 [Moles/Vol] 29.0 mmol/L Normal 21.0-32.0 [facility] Comment on above: Performed By: #### L 500.4050, L501.6710, L100.0100, L101.9900 ####[facility] [address] [place], [address] Globulin (S) [Mass/Vol] 4.3 g/dL High 2.2-4.2 [facility] Comment on above: Performed By: #### L 500.4050, L501.6710, L100.0100, L101.9900 ####[facility] [address] [place], [address] Determination of erythrocyte mean corpuscular volume (MCV)Ordered By: Mandy Arce on 08-17-2023 MCV (RBC) [Entitic vol] 87.3 fL 81-99 [facility] Emergency Department Summary on 08-17-2023 Emergency Department Summary Normal [facility] Erythrocyte Sed Rateon 08-17 SED RATE 28 mm/hr Normal 0-30 [facility] Comment on above: Performed By: #### L 500.4050, L501.6710, L100.0100, L101.9900 ####[facility] [address] [place], [address] Erythrocyte sedimentation ra teOrdered By: Mandy Arce on 08-17-2023 ESR (Bld) [Velocity] 28 mm/h 0-30 [facility] Hematocrit Auto (Bld) [Volum e fraction]Ordered By: Mandy Arce on 08-17-2023 Hematocrit (Bld) [Volume fraction] 39.9 % 37-47 [facility] INR in Blood by Coagulation assayOrdered By: Mandy Arce on 08-17-2023 INR Coag (Bld) [Relative time] 1.0 {INR} [facility] Laboratory - Chemistry and C hemistry - challengeOrdered By: Mandy Arce on 08-17-2023 ALP [Catalytic activity/Vol] 81 U/L 45-117 [facility] Urea nitrogen/Creatinine [Mass ratio] 21.8 mg/mg 10-20 [facility] Laboratory - Hematology and Cell countsOrdered By: Mandy Arce on 08-17-2023 Erythrocyte distribution width (RBC) [Entitic vol] 48.9 fL 35.1-43.9 [facility] Erythrocyte distribution width (RBC) [Ratio] 15.3 % 11.6-14.6 [facility] Immature granulocytes/100 WBC (Bld) 0.800 % 0.0-0.9 [facility] Comment on above: IG% - Immature Granu locytes (promyelocytes, myelocytes and metamyelocytes) > 1% indicates that a LEFT SHIFT is Present. MCH (RBC) [Entitic mass] 27.4 pg 27.0-32.0 [facility] Nucleated RBC/100 WBC (Bld) [Ratio] 0 % 0-5 [facility] MCHC Auto (RBC) [Mass/Vol]Or dered By: Mandy Arce on 08-17-2023 MCHC (RBC) [Mass/Vol] 31.3 g/dL 32-36 [facility] No Panel InformationOrdered By: Mandy Arce on 08-17-2023 Estimated GFR (MDRD) Amer 82 mL/min >60 [facility] Comment on above: GFR Calc Estimated GFR (MDRD) Non-Af Amer 68 mL/min >60 [facility] Comment on above: Non- GFR Calc Partial Thromboplast TimeOrd ered By: Mandy Arce on 08-17-2023 aPTT Coag (Bld) [Time] 32.0 s Normal 24.1-36.2 [facility] Comment on above: Performed By: #### L 503.6005, L300.4310, L300.3900 ####[facility] [address] [place], [address] Platelets bldOrdered By: Nani Arce on 08-17-2023 Platelets (Bld) [#/Vol] 190 10*3/uL 150-450 [facility] Prothrombin Time w/INRon INR Coag (PPP) [Relative time] 1.0 {INR} Normal [facility] Comment on above: Performed By: #### L 503.6005, L300.4310, L300.3900 ####[facility] [address] [place], [address] Prothrombin Time w/INROrdere d By: Mandy Arce on 08-17-2023 PT Coag (PPP) [Time] 12.9 s Normal 11.7-14.9 [facility] Comment on above: Performed By: #### L 503.6005, L300.4310, L300.3900 ####[facility] [address] [place], [address] Serum or plasma C reactive p rotein measurement (mass/volume)Ordered By: Mandy Arce on 08-17-2023 CRP [Mass/Vol] 53.20 mg/L 0.0-3.0 [facility] Comment on above: C-Reactive Protein ( CRP) provides useful information for thediagnosis, therapy and monitoring of inflammatory processesand associated diseases. For the evaluation of Relative Riskfor Cardiovascular Disease, a High Sensitivity CRP (HSCRP)should be ordered. Serum or plasma albumin herson urement (mass/volume)Ordered By: Mandy Arce on 08-17-2023 Albumin [Mass/Vol] 3.3 g/dL Normal 3.2-5.0 [facility] Comment on above: Performed By: #### L 500.4050, L501.6710, L100.0100, L101.9900 ####[facility] [address] [place], [address] Serum or plasma albumin/glob ulin mass ratioOrdered By: Mandy Arce on 08-17-2023 Albumin/Globulin [Mass ratio] 0.8 {ratio} Low 0.9-2.4 [facility] Comment on above: Performed By: #### L 500.4050, L501.6710, L100.0100, L101.9900 ####[facility] [address] [place], [address] Serum or plasma calcium herson urement (mass/volume)Ordered By: Mandy Arce on 08-17-2023 Calcium [Mass/Vol] 8.8 mg/dL 8.5-10.1 [facility] Serum or plasma creatinine m easurement (mass/volume)Ordered By: Mandy Arce on 08-17-2023 Creatinine [Mass/Vol] 0.92 mg/dL Normal 0.55-1.02 [facility] Comment on above: The validity of the calculated GFR & GFRAA in patients over 70 years has not been determined. Clinical correlation is essential. Result Comment: The validity of the calculated GFR GFRAA in patients over70 years has not been determined. Clinical correlation isessential. Performed By: #### L 500.4050, L501.6710, L100.0100, L101.9900 ####[facility] [address] [place], [address] Serum or plasma urea nitroge n measurement (mass/volume)Ordered By: Mandy Arce on 08-17-2023 Urea nitrogen [Mass/Vol] 20 mg/dL High 06-16 [facility] Comment on above: Performed By: #### L 500.4050, L501.6710, L100.0100, L101.9900 ####[facility] [address] [place], [address] Thin prep Papanicolaou smear with manual screeningOrdered By: Mandy Arce on 08-17-2023 Thin prep Papanicolaou smear with manual screening 15 U/L 15-37 [facility] Thin prep Papanicolaou smear with manual screening 4 5-15 [facility] Urinalysis, Completeon 08-17 BACTERIA Normal None Seen [facility] Comment on above: Order Comment: DYLAN FAIRCHILDOR TO SPECIFY Result Comment: Canc elled via OM: MD Ordered Performed By: #### L 400.0001 ####[facility] [address] [place], [address] BILIRUBIN URINE Normal Negative [facility] Comment on above: Order Comment: DYLAN CTOR TO SPECIFY Result Comment: Canc elled via OM: MD Ordered Performed By: #### L 400.0001 ####[facility] [address] [place], [address] Clarity (U) Normal Clear [facility] Comment on above: Order Comment: DYLAN CTOR TO SPECIFY Result Comment: Canc elled via OM: MD Ordered Performed By: #### L 400.0001 ####[facility] [address] [place], [address] Color (U) Normal Yellow [facility] Comment on above: Order Comment: DYLAN CTOR TO SPECIFY Result Comment: Canc elled via OM: MD Ordered Performed By: #### L 400.0001 ####[facility] [address] [place], [address] EPI,SQUAMOUS Normal 5-10 [facility] Comment on above: Order Comment: DYLAN FAIRCHILDOR TO SPECIFY Result Comment: Canc elled via OM: MD Ordered Performed By: #### L 400.0001 ####[facility] [address] [place], [address] GLUCOSE, UR Normal Normal [facility] Comment on above: Order Comment: DYLAN CTOR TO SPECIFY Result Comment: Canc elled via OM: MD Ordered Performed By: #### L 400.0001 ####[facility] [address] [place], [address] KETONE UR Normal Negative [facility] Comment on above: Order Comment: DYLAN FAIRCHILDOR TO SPECIFY Result Comment: Canc elled via OM: MD Ordered Performed By: #### L 400.0001 ####[facility] [address] [place], [address] LEUK ESTERASE Normal Negative [facility] Comment on above: Order Comment: DYLAN CTOR TO SPECIFY Result Comment: Canc elled via OM: MD Ordered Performed By: #### L 400.0001 ####[facility] [address] [place], [address] Mucus Ql (Urine sed) Normal [facility] Comment on above: Order Comment: DYLAN CTOR TO SPECIFY Result Comment: Canc elled via OM: MD Ordered Performed By: #### L 400.0001 ####[facility] [address] [place], [address] Nitrite Ql (U) Normal Negative [facility] Comment on above: Order Comment: DYLAN CTOR TO SPECIFY Result Comment: Canc elled via OM: MD Ordered Performed By: #### L 400.0001 ####[facility] [address] [place], [address] OCCULT BLOOD-UR Normal Negative [facility] Comment on above: Order Comment: DYLAN CTOR TO SPECIFY Result Comment: Canc elled via OM: MD Ordered Performed By: #### L 400.0001 ####[facility] [address] [place], [address] pH UR Normal 5.0 - 8.0 [facility] Comment on above: Order Comment: DYLAN CTOR TO SPECIFY Result Comment: Canc elled via OM: MD Ordered Performed By: #### L 400.0001 ####[facility] [address] [place], [address] PROT DIPSTX Normal Negative [facility] Comment on above: Order Comment: COLLE CTOR TO SPECIFY Result Comment: Canc elled via OM: MD Ordered Performed By: #### L 400.0001 ####[facility] [address] [place], [address] RBC Normal 0-5 [facility] Comment on above: Order Comment: COLLE CTOR TO SPECIFY Result Comment: Canc elled via OM: MD Ordered Performed By: #### L 400.0001 ####[facility] [address] [place], [address] SP.GR. DIPSTX Normal 1.002-1.030 [facility] Comment on above: Order Comment: COLLE CTOR TO SPECIFY Result Comment: Canc elled via OM: MD Ordered Performed By: #### L 400.0001 ####[facility] [address] [place], [address] UR Preservative Normal [facility] Comment on above: Order Comment: COLLE CTOR TO SPECIFY Result Comment: Canc elled via OM: MD Ordered Performed By: #### L 400.0001 ####[facility] [address] [place], [address] UROBILI Normal Normal [facility] Comment on above: Order Comment: COLLE CTOR TO SPECIFY Result Comment: Canc elled via OM: MD Ordered Performed By: #### L 400.0001 ####[facility] [address] [place], [address] WBC Normal 0-5 [facility] Comment on above: Order Comment: COLLE CTOR TO SPECIFY Result Comment: Canc elled via OM: MD Ordered Performed By: #### L 400.0001 ####[facility] [address] [place], [address] Basic Metabolic Profile (BMP )on 08-02-2023 BUN Normal 7-18 [facility] Comment on above: Result Comment: Canc elled via OM: Order cancelled - Patient discharged Performed By: #### L 500.2500, L100.0100 ####[facility] [address] [place], [address] BUN/CRE Normal 10-20 [facility] Comment on above: Result Comment: Canc elled via OM: Order cancelled - Patient discharged Performed By: #### L 500.2500, L100.0100 ####[facility] [address] [place], [address] CA,Total Normal 8.5-10.1 [facility] Comment on above: Result Comment: Canc elled via OM: Order cancelled - Patient discharged Performed By: #### L 500.2500, L100.0100 ####[facility] [address] [place], [address] CL Normal 98-107 [facility] Comment on above: Result Comment: Canc elled via OM: Order cancelled - Patient discharged Performed By: #### L 500.2500, L100.0100 ####[facility] [address] [place], [address] CO2 Normal 21.0-32.0 [facility] Comment on above: Result Comment: Canc elled via OM: Order cancelled - Patient discharged Performed By: #### L 500.2500, L100.0100 ####[facility] [address] [place], [address] CREAT,SERUM Normal 0.55-1.02 [facility] Comment on above: Result Comment: Canc elled via OM: Order cancelled - Patient discharged Performed By: #### L 500.2500, L100.0100 ####[facility] [address] [place], [address] EST GFR Normal >60 [facility] Comment on above: Result Comment: Canc elled via OM: Order cancelled - Patient discharged Performed By: #### L 500.2500, L100.0100 ####[facility] [address] [place], [address] EST GFR - AA Normal >60 [facility] Comment on above: Result Comment: Canc elled via OM: Order cancelled - Patient discharged Performed By: #### L 500.2500, L100.0100 ####[facility] [address] [place], [address] GAP Normal 5-15 [facility] Comment on above: Result Comment: Canc elled via OM: Order cancelled - Patient discharged Performed By: #### L 500.2500, L100.0100 ####[facility] [address] [place], [address] GLU Normal 74-106 [facility] Comment on above: Result Comment: Canc elled via OM: Order cancelled - Patient discharged Performed By: #### L 500.2500, L100.0100 ####[facility] [address] [place], [address] Potassium Normal 3.5-5.1 [facility] Comment on above: Result Comment: Canc elled via OM: Order cancelled - Patient discharged Performed By: #### L 500.2500, L100.0100 ####[facility] [address] [place], [address] Basic Metabolic Profile (BMP) Normal 136-145 [facility] Comment on above: Result Comment: Canc elled via OM: Order cancelled - Patient discharged Performed By: #### L 500.2500, L100.0100 ####[facility] [address] [place], [address] CBC W/Diff, Automatedon 09-0 Absolute Neut Normal 2.0-7.7 [facility] Comment on above: Result Comment: Canc elled via OM: Order cancelled - Patient discharged Performed By: #### L 500.2500, L100.0100 ####[facility] [address] [place], [address] HCT Normal 37-47 [facility] Comment on above: Result Comment: Canc elled via OM: Order cancelled - Patient discharged Performed By: #### L 500.2500, L100.0100 ####[facility] [address] [place], [address] HGB Normal 12.0-15.0 [facility] Comment on above: Result Comment: Canc elled via OM: Order cancelled - Patient discharged Performed By: #### L 500.2500, L100.0100 ####[facility] [address] [place], [address] MCH Normal 27.0-32.0 [facility] Comment on above: Result Comment: Canc elled via OM: Order cancelled - Patient discharged Performed By: #### L 500.2500, L100.0100 ####[facility] [address] [place], [address] MCHC Normal 32-36 [facility] Comment on above: Result Comment: Canc elled via OM: Order cancelled - Patient discharged Performed By: #### L 500.2500, L100.0100 ####[facility] [address] [place], [address] MCV Normal 81-99 [facility] Comment on above: Result Comment: Canc elled via OM: Order cancelled - Patient discharged Performed By: #### L 500.2500, L100.0100 ####[facility] [address] [place], [address] NEUT% Normal 47-70 [facility] Comment on above: Result Comment: Canc elled via OM: Order cancelled - Patient discharged Performed By: #### L 500.2500, L100.0100 ####[facility] [address] [place], [address] PLT Normal 150-450 [facility] Comment on above: Result Comment: Canc elled via OM: Order cancelled - Patient discharged Performed By: #### L 500.2500, L100.0100 ####[facility] [address] [place], [address] RBC Normal 4.2-5.4 [facility] Comment on above: Result Comment: Canc elled via OM: Order cancelled - Patient discharged Performed By: #### L 500.2500, L100.0100 ####[facility] [address] [place], [address] RDW CV Normal 11.6-14.6 [facility] Comment on above: Result Comment: Canc elled via OM: Order cancelled - Patient discharged Performed By: #### L 500.2500, L100.0100 ####[facility] [address] [place], [address] RDW SD Normal 35.1-43.9 [facility] Comment on above: Result Comment: Canc elled via OM: Order cancelled - Patient discharged Performed By: #### L 500.2500, L100.0100 ####[facility] [address] [place], [address] WBC Normal 4.4-11.0 [facility] Comment on above: Result Comment: Canc elled via OM: Order cancelled - Patient discharged Performed By: #### L 500.2500, L100.0100 ####[facility] [address] [place], [address] Basic Metabolic Profile (BMP )on 08-01-2023 BUN Normal 7-18 [facility] Comment on above: Result Comment: Canc elled via OM: Order cancelled - Patient discharged Performed By: #### L 500.2500, L100.0100 ####[facility] [address] [place], [address] BUN/CRE Normal 10-20 [facility] Comment on above: Result Comment: Canc elled via OM: Order cancelled - Patient discharged Performed By: #### L 500.2500, L100.0100 ####[facility] [address] [place], [address] CA,Total Normal 8.5-10.1 [facility] Comment on above: Result Comment: Canc elled via OM: Order cancelled - Patient discharged Performed By: #### L 500.2500, L100.0100 ####[facility] [address] [place], [address] CL Normal 98-107 [facility] Comment on above: Result Comment: Canc elled via OM: Order cancelled - Patient discharged Performed By: #### L 500.2500, L100.0100 ####[facility] [address] [place], [address] CO2 Normal 21.0-32.0 [facility] Comment on above: Result Comment: Canc elled via OM: Order cancelled - Patient discharged Performed By: #### L 500.2500, L100.0100 ####[facility] [address] [place], [address] CREAT,SERUM Normal 0.55-1.02 [facility] Comment on above: Result Comment: Canc elled via OM: Order cancelled - Patient discharged Performed By: #### L 500.2500, L100.0100 ####[facility] [address] [place], [address] EST GFR Normal >60 [facility] Comment on above: Result Comment: Canc elled via OM: Order cancelled - Patient discharged Performed By: #### L 500.2500, L100.0100 ####[facility] [address] [place], [address] EST GFR - AA Normal >60 [facility] Comment on above: Result Comment: Canc elled via OM: Order cancelled - Patient discharged Performed By: #### L 500.2500, L100.0100 ####[facility] [address] [place], [address] GAP Normal 5-15 [facility] Comment on above: Result Comment: Canc elled via OM: Order cancelled - Patient discharged Performed By: #### L 500.2500, L100.0100 ####[facility] [address] [place], [address] GLU Normal 74-106 [facility] Comment on above: Result Comment: Canc elled via OM: Order cancelled - Patient discharged Performed By: #### L 500.2500, L100.0100 ####[facility] [address] [place], [address] Potassium Normal 3.5-5.1 [facility] Comment on above: Result Comment: Canc elled via OM: Order cancelled - Patient discharged Performed By: #### L 500.2500, L100.0100 ####[facility] [address] [place], [address] Basic Metabolic Profile (BMP) Normal 136-145 [facility] Comment on above: Result Comment: Canc elled via OM: Order cancelled - Patient discharged Performed By: #### L 500.2500, L100.0100 ####[facility] [address] [place], [address] CBC W/Diff, Automatedon 09-0 -2022 Absolute Neut Normal 2.0-7.7 [facility] Comment on above: Result Comment: Canc elled via OM: Order cancelled - Patient discharged Performed By: #### L 500.2500, L100.0100 ####[facility] [address] [place], [address] HCT Normal 37-47 [facility] Comment on above: Result Comment: Canc elled via OM: Order cancelled - Patient discharged Performed By: #### L 500.2500, L100.0100 ####[facility] [address] [place], [address] HGB Normal 12.0-15.0 [facility] Comment on above: Result Comment: Canc elled via OM: Order cancelled - Patient discharged Performed By: #### L 500.2500, L100.0100 ####[facility] [address] [place], [address] MCH Normal 27.0-32.0 [facility] Comment on above: Result Comment: Canc elled via OM: Order cancelled - Patient discharged Performed By: #### L 500.2500, L100.0100 ####[facility] [address] [place], [address] MCHC Normal 32-36 [facility] Comment on above: Result Comment: Canc elled via OM: Order cancelled - Patient discharged Performed By: #### L 500.2500, L100.0100 ####[facility] [address] [place], [address] MCV Normal 81-99 [facility] Comment on above: Result Comment: Canc elled via OM: Order cancelled - Patient discharged Performed By: #### L 500.2500, L100.0100 ####[facility] [address] [place], [address] NEUT% Normal 47-70 [facility] Comment on above: Result Comment: Canc elled via OM: Order cancelled - Patient discharged Performed By: #### L 500.2500, L100.0100 ####[facility] [address] [place], [address] PLT Normal 150-450 [facility] Comment on above: Result Comment: Canc elled via OM: Order cancelled - Patient discharged Performed By: #### L 500.2500, L100.0100 ####[facility] [address] [place], [address] RBC Normal 4.2-5.4 [facility] Comment on above: Result Comment: Canc elled via OM: Order cancelled - Patient discharged Performed By: #### L 500.2500, L100.0100 ####[facility] [address] [place], [address] RDW CV Normal 11.6-14.6 [facility] Comment on above: Result Comment: Canc elled via OM: Order cancelled - Patient discharged Performed By: #### L 500.2500, L100.0100 ####[facility] [address] [place], [address] RDW SD Normal 35.1-43.9 [facility] Comment on above: Result Comment: Canc elled via OM: Order cancelled - Patient discharged Performed By: #### L 500.2500, L100.0100 ####[facility] [address] [place], [address] WBC Normal 4.4-11.0 [facility] Comment on above: Result Comment: Canc elled via OM: Order cancelled - Patient discharged Performed By: #### L 500.2500, L100.0100 ####[facility] [address] [place], [address] Absolute lymphocyte countOrd ered By: Betty Calvin on 07-31-2023 Lymphocytes Auto (Unsp spec) [#/Vol] 1.24 10*3/uL 0.83-4.51 [facility] Basic Metabolic Profile (BMP )on 07-31-2023 BUN/CRE 17.4 RATIO Normal 10-20 [facility] Comment on above: Performed By: #### L 100.0100, L500.2500 ####[facility] [address] [place], [address] CA,Total 9.0 mg/dL Normal 8.5-10.1 [facility] Comment on above: Performed By: #### L 100.0100, L500.2500 ####[facility] [address] [place], [address] Chloride [Moles/Vol] 106 mmol/L Normal 98-107 [facility] Comment on above: Performed By: #### L 100.0100, L500.2500 ####[facility] [address] [place], [address] CO2 [Moles/Vol] 28.0 mmol/L Normal 21.0-32.0 [facility] Comment on above: Performed By: #### L 100.0100, L500.2500 ####[facility] [address] [place], [address] Creatinine [Mass/Vol] 0.86 mg/dL Normal 0.55-1.02 [facility] Comment on above: Result Comment: The validity of the calculated GFR GFRAA in patients over70 years has not been determined. Clinical correlation isessential. Performed By: #### L 100.0100, L500.2500 ####[facility] [address] [place], [address] ECRCL 63.83 ml/min Normal [facility] Comment on above: Performed By: #### L 100.0100, L500.2500 ####[facility] [address] [place], [address] EST GFR - AA 88 mL/min Normal >60 [facility] Comment on above: Result Comment: Afri can Anguillan GFR Calc Performed By: #### L 100.0100, L500.2500 ####[facility] [address] [place], [address] GAP 5 Normal 5-15 [facility] Comment on above: Performed By: #### L 100.0100, L500.2500 ####[facility] [address] [place], [address] GFR/1.73 sq M.predicted among non-blacks MDRD (S/P/Bld) [Vol rate/Area] 73 mL/min/{1.73_m2} Normal >60 [facility] Comment on above: Result Comment: Non- GFR Calc Performed By: #### L 100.0100, L500.2500 ####[facility] [address] [place], [address] Glucose [Mass/Vol] 104 mg/dL Normal 74-106 [facility] Comment on above: Result Comment: Fast ing Glucose result from 100 to 125 mg/dLsuggests IMPAIRED HOMEOSTASIS per A.D.A. criteria. Performed By: #### L 100.0100, L500.2500 ####[facility] [address] [place], [address] Potassium [Moles/Vol] 4.2 mmol/L Normal 3.5-5.1 [facility] Comment on above: Performed By: #### L 100.0100, L500.2500 ####[facility] [address] [place], [address] Sodium [Moles/Vol] 139 mmol/L Normal 136-145 [facility] Comment on above: Performed By: #### L 100.0100, L500.2500 ####[facility] [address] [place], [address] Urea nitrogen [Mass/Vol] 15 mg/dL Normal 7-18 [facility] Comment on above: Performed By: #### L 100.0100, L500.2500 ####[facility] [address] [place], [address] Basophil percentageOrdered B y: Bettysim Calvin on 07-31-2023 Basophils/100 WBC (Bld) 0.2 % 0-1 [facility] Chloride [Moles/Vol] 106 mmol/L 98-107 [facility] Eosinophils/100 WBC (Bld) 0.2 % 0-5 [facility] Glucose [Mass/Vol] 104 mg/dL 74-106 [facility] Comment on above: Fasting Glucose resu lt from 100 to 125 mg/dL suggests IMPAIRED HOMEOSTASIS per A.D.A. criteria. Neutrophils (Bld) [#/Vol] 3.9 10*3/uL 2.0-7.7 [facility] Neutrophils/100 WBC (Bld) 66.9 % 47-70 [facility] Potassium [Moles/Vol] 4.2 mmol/L 3.5-5.1 [facility] Sodium [Moles/Vol] 139 mmol/L 136-145 [facility] WBC (Bld) [#/Vol] 5.8 10*3/uL 4.4-11.0 [facility] Blood erythrocytes count (nu mber/volume)Ordered By: Betty Calvin on 07-31-2023 RBC (Bld) [#/Vol] 4.12 10*6/uL 4.2-5.4 [facility] Blood hemoglobin measurement (mass/volume)Ordered By: Betty Calvin on 07-31-2023 Hemoglobin (Bld) [Mass/Vol] 11.1 g/dL 12.0-15.0 [facility] Blood lymphocytes/100 leukoc ytesOrdered By: Betty Calvin on 07-31-2023 Lymphocytes/100 WBC (Bld) 21.3 % 19-41 [facility] Blood monocytes/100 leukocyt esOrdered By: Betty Calvin on 07-31-2023 Monocytes/100 WBC (Bld) 9.3 % 0-10 [facility] Blood platelet mean volumeOr dered By: Betty Calvin on 07-31-2023 Platelet mean volume (Bld) [Entitic vol] 9.3 fL 6.2-12.0 [facility] CBC W/Diff, Automatedon Absolute Lymph 1.24 X10 3/uL Normal 0.83-4.51 [facility] Comment on above: Performed By: #### L 100.0100, L500.2500 ####[facility] [address] [place], [place], [address] Absolute Neut 3.9 X10 3/uL Normal 2.0-7.7 [facility] Comment on above: Performed By: #### L 100.0100, L500.2500 ####[facility] [address] [place], [address] Basophils/100 WBC (Bld) 0.2 % Normal 0-1 [facility] Comment on above: Performed By: #### L 100.0100, L500.2500 ####[facility] [address] [place], [address] Eosinophils/100 WBC (Bld) 0.2 % Normal 0-5 [facility] Comment on above: Performed By: #### L 100.0100, L500.2500 ####[facility] [address] [place], [address] Erythrocyte distribution width (RBC) [Ratio] 14.9 % High 11.6-14.6 [facility] Comment on above: Performed By: #### L 100.0100, L500.2500 ####[facility] [address] [place], [address] Hematocrit (Bld) [Volume fraction] 35.9 % Low 37-47 [facility] Comment on above: Performed By: #### L 100.0100, L500.2500 ####[facility] [address] [place], [address] Hemoglobin (Bld) [Mass/Vol] 11.1 g/dL Low 12.0-15.0 [facility] Comment on above: Performed By: #### L 100.0100, L500.2500 ####[facility] [address] [place], [address] IG% 2.100 High 0.0-0.9 [facility] Comment on above: Result Comment: IG% - Immature Granulocytes (promyelocytes, myelocytes andmetamyelocytes) > 1% indicates that a LEFT SHIFT is Present. Performed By: #### L 100.0100, L500.2500 ####[facility] [address] [place], [address] Lymphocytes/100 WBC (Bld) 21.3 % Normal 19-41 [facility] Comment on above: Performed By: #### L 100.0100, L500.2500 ####[facility] [address] [place], [address] MCH (RBC) [Entitic mass] 26.9 pg Low 27.0-32.0 [facility] Comment on above: Performed By: #### L 100.0100, L500.2500 ####[facility] [address] [place], [address] MCHC (RBC) [Mass/Vol] 30.9 g/dL Low 32-36 [facility] Comment on above: Performed By: #### L 100.0100, L500.2500 ####[facility] [address] [place], [address] MCV (RBC) [Entitic vol] 87.1 fL Normal 81-99 [facility] Comment on above: Performed By: #### L 100.0100, L500.2500 ####[facility] [address] [place], [address] Monocytes/100 WBC (Bld) 9.3 % Normal 0-10 [facility] Comment on above: Performed By: #### L 100.0100, L500.2500 ####[facility] [address] [place], [address] Neutrophils/100 WBC (Bld) 66.9 % Normal 47-70 [facility] Comment on above: Performed By: #### L 100.0100, L500.2500 ####[facility] [address] [place], [address] Nucleated RBC (Bld) [#/Vol] 0 10*3/uL Normal 0-5 [facility] Comment on above: Performed By: #### L 100.0100, L500.2500 ####[facility] [address] [place], [address] Platelet mean volume (Bld) [Entitic vol] 9.3 fL Normal 6.2-12.0 [facility] Comment on above: Performed By: #### L 100.0100, L500.2500 ####[facility] [address] [place], [address] Platelets (Bld) [#/Vol] 208 10*3/uL Normal 150-450 [facility] Comment on above: Performed By: #### L 100.0100, L500.2500 ####[facility] [address] [place], [address] RBC (Bld) [#/Vol] 4.12 10*6/uL Low 4.2-5.4 [facility] Comment on above: Performed By: #### L 100.0100, L500.2500 ####[facility] [address] [place], [address] RDW SD 47.3 fl High 35.1-43.9 [facility] Comment on above: Performed By: #### L 100.0100, L500.2500 ####[facility] [address] [place], [address] WBC (Bld) [#/Vol] 5.8 10*3/uL Normal 4.4-11.0 [facility] Comment on above: Performed By: #### L 100.0100, L500.2500 ####[facility] [address] [place], [address] Determination of erythrocyte mean corpuscular volume (MCV)Ordered By: Betty Calvin on 07-31-2023 MCV (RBC) [Entitic vol] 87.1 fL 81-99 [facility] Discharge Instructionon 09-0 Discharge Instruction Normal [facility] Hematocrit Auto (Bld) [Volum e fraction]Ordered By: Betty Calvin on 07-31-2023 Hematocrit (Bld) [Volume fraction] 35.9 % 37-47 [facility] Laboratory - Chemistry and C hemistry - challengeOrdered By: Betty Calvin on 07-31-2023 CO2 [Moles/Vol] 28.0 mmol/L 21.0-32.0 [facility] Urea nitrogen/Creatinine [Mass ratio] 17.4 mg/mg 10-20 [facility] Laboratory - Hematology and Cell countsOrdered By: Betty Calvin on 07-31-2023 Erythrocyte distribution width (RBC) [Entitic vol] 47.3 fL 35.1-43.9 [facility] Erythrocyte distribution width (RBC) [Ratio] 14.9 % 11.6-14.6 [facility] Immature granulocytes/100 WBC (Bld) 2.100 % 0.0-0.9 [facility] Comment on above: IG% - Immature Granu locytes (promyelocytes, myelocytes and metamyelocytes) > 1% indicates that a LEFT SHIFT is Present. MCH (RBC) [Entitic mass] 26.9 pg 27.0-32.0 [facility] Nucleated RBC/100 WBC (Bld) [Ratio] 0 % 0-5 [facility] MCHC Auto (RBC) [Mass/Vol]Or dered By: Betty Calvin on 07-31-2023 MCHC (RBC) [Mass/Vol] 30.9 g/dL 32-36 [facility] No Panel InformationOrdered By: Betty Calvin on 07-31-2023 Estimated Creatinine Clearance Calc 63.83 ml/min [facility] Estimated GFR (MDRD) Amer 88 mL/min >60 [facility] Comment on above: GFR Calc Estimated GFR (MDRD) Non-Af Amer 73 mL/min >60 [facility] Comment on above: Non- GFR Calc Platelets bldOrdered By: Ira Calvin on 07-31-2023 Platelets (Bld) [#/Vol] 208 10*3/uL 150-450 [facility] Serum or plasma calcium herson urement (mass/volume)Ordered By: Betty Calvin on 07-31-2023 Calcium [Mass/Vol] 9.0 mg/dL 8.5-10.1 [facility] Serum or plasma creatinine m easurement (mass/volume)Ordered By: Betty Calvin on 07-31-2023 Creatinine [Mass/Vol] 0.86 mg/dL 0.55-1.02 [facility] Comment on above: The validity of the calculated GFR & GFRAA in patients over 70 years has not been determined. Clinical correlation is essential. Serum or plasma urea nitroge n measurement (mass/volume)Ordered By: Betty Calvin on 07-31-2023 Urea nitrogen [Mass/Vol] 15 mg/dL 7-18 [facility] Thin prep Papanicolaou smear with manual screeningOrdered By: Betty Calvin on 07-31-2023 Thin prep Papanicolaou smear with manual screening 5 5-15 [facility] Basic Metabolic Profile (BMP )on 07-30-2023 BUN/CRE 16.4 RATIO Normal 10-20 [facility] Comment on above: Performed By: #### L 501.6710, L100.0100, L500.2500, L101.9900 ####[facility] [address] [place], [address] CA,Total 8.9 mg/dL Normal 8.5-10.1 [facility] Comment on above: Performed By: #### L 501.6710, L100.0100, L500.2500, L101.9900 ####[facility] [address] [place], [address] Chloride [Moles/Vol] 107 mmol/L Normal 98-107 [facility] Comment on above: Performed By: #### L 501.6710, L100.0100, L500.2500, L101.9900 ####[facility] [address] [place], [address] CO2 [Moles/Vol] 29.0 mmol/L Normal 21.0-32.0 [facility] Comment on above: Performed By: #### L 501.6710, L100.0100, L500.2500, L101.9900 ####[facility] [address] [place], [address] Creatinine [Mass/Vol] 0.79 mg/dL Normal 0.55-1.02 [facility] Comment on above: Result Comment: The validity of the calculated GFR GFRAA in patients over70 years has not been determined. Clinical correlation isessential. Performed By: #### L 501.6710, L100.0100, L500.2500, L101.9900 ####[facility] [address] [place], [address] ECRCL 69.48 ml/min Normal [facility] Comment on above: Performed By: #### L 501.6710, L100.0100, L500.2500, L101.9900 ####[facility] [address] [place], [address] EST GFR - AA 97 mL/min Normal >60 [facility] Comment on above: Result Comment: Afri can Anguillan GFR Calc Performed By: #### L 501.6710, L100.0100, L500.2500, L101.9900 ####[facility] [address] [place], [address] GAP 3 Low 5-15 [facility] Comment on above: Performed By: #### L 501.6710, L100.0100, L500.2500, L101.9900 ####[facility] [address] [place], [address] GFR/1.73 sq M.predicted among non-blacks MDRD (S/P/Bld) [Vol rate/Area] 80 mL/min/{1.73_m2} Normal >60 [facility] Comment on above: Result Comment: Non- GFR Calc Performed By: #### L 501.6710, L100.0100, L500.2500, L101.9900 ####[facility] [address] [place], [address] Glucose [Mass/Vol] 107 mg/dL High 74-106 [facility] Comment on above: Result Comment: Fast ing Glucose result from 100 to 125 mg/dLsuggests IMPAIRED HOMEOSTASIS per A.D.A. criteria. Performed By: #### L 501.6710, L100.0100, L500.2500, L101.9900 ####[facility] [address] [place], [address] Potassium [Moles/Vol] 4.2 mmol/L Normal 3.5-5.1 [facility] Comment on above: Performed By: #### L 501.6710, L100.0100, L500.2500, L101.9900 ####[facility] [address] [place], [address] Sodium [Moles/Vol] 139 mmol/L Normal 136-145 [facility] Comment on above: Performed By: #### L 501.6710, L100.0100, L500.2500, L101.9900 ####[facility] [address] [place], [address] Urea nitrogen [Mass/Vol] 13 mg/dL Normal 7-18 [facility] Comment on above: Performed By: #### L 501.6710, L100.0100, L500.2500, L101.9900 ####[facility] [address] [place], [address] CBC W/Diff, Automatedon 08-3 Absolute Lymph 1.23 X10 3/uL Normal 0.83-4.51 [facility] Comment on above: Performed By: #### L 501.6710, L100.0100, L500.2500, L101.9900 ####[facility] [address] [place], [address] Absolute Neut 3.9 X10 3/uL Normal 2.0-7.7 [facility] Comment on above: Performed By: #### L 501.6710, L100.0100, L500.2500, L101.9900 ####[facility] [address] [place], [address] Basophils/100 WBC (Bld) 0.3 % Normal 0-1 [facility] Comment on above: Performed By: #### L 501.6710, L100.0100, L500.2500, L101.9900 ####[facility] [address] [place], [address] Eosinophils/100 WBC (Bld) 0.2 % Normal 0-5 [facility] Comment on above: Performed By: #### L 501.6710, L100.0100, L500.2500, L101.9900 ####[facility] [address] [place], [address] Erythrocyte distribution width (RBC) [Ratio] 15.0 % High 11.6-14.6 [facility] Comment on above: Performed By: #### L 501.6710, L100.0100, L500.2500, L101.9900 ####[facility] [address] [place], [address] Hematocrit (Bld) [Volume fraction] 36.1 % Low 37-47 [facility] Comment on above: Performed By: #### L 501.6710, L100.0100, L500.2500, L101.9900 ####[facility] [address] [place], [address] Hemoglobin (Bld) [Mass/Vol] 11.0 g/dL Low 12.0-15.0 [facility] Comment on above: Performed By: #### L 501.6710, L100.0100, L500.2500, L101.9900 ####[facility] [address] [place], [address] IG% 1.700 High 0.0-0.9 [facility] Comment on above: Result Comment: IG% - Immature Granulocytes (promyelocytes, myelocytes andmetamyelocytes) > 1% indicates that a LEFT SHIFT is Present. Performed By: #### L 501.6710, L100.0100, L500.2500, L101.9900 ####[facility] [address] [place], [address] Lymphocytes/100 WBC (Bld) 20.6 % Normal 19-41 [facility] Comment on above: Performed By: #### L 501.6710, L100.0100, L500.2500, L101.9900 ####[facility] [address] [place], [address] MCH (RBC) [Entitic mass] 27.2 pg Normal 27.0-32.0 [facility] Comment on above: Performed By: #### L 501.6710, L100.0100, L500.2500, L101.9900 ####[facility] [address] [place], [address] MCHC (RBC) [Mass/Vol] 30.5 g/dL Low 32-36 [facility] Comment on above: Performed By: #### L 501.6710, L100.0100, L500.2500, L101.9900 ####[facility] [address] [place], [address] MCV (RBC) [Entitic vol] 89.4 fL Normal 81-99 [facility] Comment on above: Performed By: #### L 501.6710, L100.0100, L500.2500, L101.9900 ####[facility] [address] [place], [address] Monocytes/100 WBC (Bld) 11.2 % High 0-10 [facility] Comment on above: Performed By: #### L 501.6710, L100.0100, L500.2500, L101.9900 ####[facility] [address] [place], [address] Neutrophils/100 WBC (Bld) 66.0 % Normal 47-70 [facility] Comment on above: Performed By: #### L 501.6710, L100.0100, L500.2500, L101.9900 ####[facility] [address] [place], [address] Nucleated RBC (Bld) [#/Vol] 0 10*3/uL Normal 0-5 [facility] Comment on above: Performed By: #### L 501.6710, L100.0100, L500.2500, L101.9900 ####[facility] [address] [place], [address] Platelet mean volume (Bld) [Entitic vol] 9.4 fL Normal 6.2-12.0 [facility] Comment on above: Performed By: #### L 501.6710, L100.0100, L500.2500, L101.9900 ####[facility] [address] [place], [address] Platelets (Bld) [#/Vol] 184 10*3/uL Normal 150-450 [facility] Comment on above: Performed By: #### L 501.6710, L100.0100, L500.2500, L101.9900 ####[facility] [address] [place], [address] RBC (Bld) [#/Vol] 4.04 10*6/uL Low 4.2-5.4 [facility] Comment on above: Performed By: #### L 501.6710, L100.0100, L500.2500, L101.9900 ####[facility] [address] [place], [address] RDW SD 49.1 fl High 35.1-43.9 [facility] Comment on above: Performed By: #### L 501.6710, L100.0100, L500.2500, L101.9900 ####[facility] [address] [place], [address] WBC (Bld) [#/Vol] 6.0 10*3/uL Normal 4.4-11.0 [facility] Comment on above: Performed By: #### L 501.6710, L100.0100, L500.2500, L101.9900 ####[facility] [address] [place], [address] CRPon 07-30-2023 C-REACTIVE PROT 120.00 mg/L High 0.0-3.0 [facility] Comment on above: Result Comment: C-Re active Protein (CRP) provides useful information for thediagnosis, therapy and monitoring of inflammatory processesand associated diseases. For the evaluation of Relative Riskfor Cardiovascular Disease, a High Sensitivity CRP (HSCRP)should be ordered. Performed By: #### L 501.6710, L100.0100, L500.2500, L101.9900 ####[facility] [address] [place], [address] Erythrocyte Sed Rateon 07-30 SED RATE 55 mm/hr High 0-30 [facility] Comment on above: Performed By: #### L 501.6710, L100.0100, L500.2500, L101.9900 ####[facility] [address] [place], [address] Erythrocyte sedimentation ra teOrdered By: Betty Calvin on 07-30-2023 ESR (Bld) [Velocity] 55 mm/h 0-30 [facility] Serum or plasma C reactive p rotein measurement (mass/volume)Ordered By: Betty Calvin on 07-30-2023 CRP [Mass/Vol] 120.00 mg/L 0.0-3.0 [facility] Comment on above: C-Reactive Protein ( CRP) provides useful information for thediagnosis, therapy and monitoring of inflammatory processesand associated diseases. For the evaluation of Relative Riskfor Cardiovascular Disease, a High Sensitivity CRP (HSCRP)should be ordered. Basic Metabolic Profile (BMP )on 07-29-2023 BUN/CRE 13.8 RATIO Normal 10-20 [facility] Comment on above: Performed By: #### L 500.2500, L101.9900, L100.0100, L501.6710 ####[facility] [address] [facility] [address] CA,Total 8.7 mg/dL Normal 8.5-10.1 [facility] Comment on above: Performed By: #### L 500.2500, L101.9900, L100.0100, L501.6710 ####[facility] [address] [facility] [address] Chloride [Moles/Vol] 106 mmol/L Normal 98-107 [facility] Comment on above: Performed By: #### L 500.2500, L101.9900, L100.0100, L501.6710 ####[facility] [address] [facility] [address] CO2 [Moles/Vol] 27.0 mmol/L Normal 21.0-32.0 [facility] Comment on above: Performed By: #### L 500.2500, L101.9900, L100.0100, L501.6710 ####[facility] [address] [place], [address] Creatinine [Mass/Vol] 0.72 mg/dL Normal 0.55-1.02 [facility] Comment on above: Result Comment: The validity of the calculated GFR GFRAA in patients over70 years has not been determined. Clinical correlation isessential. Performed By: #### L 500.2500, L101.9900, L100.0100, L501.6710 ####[facility] [address] [place], [address] ECRCL 76.24 ml/min Normal [facility] Comment on above: Performed By: #### L 500.2500, L101.9900, L100.0100, L501.6710 ####[facility] [address] [place], [address] EST GFR - AA 107 mL/min Normal >60 [facility] Comment on above: Result Comment: Afri can Anguillan GFR Calc Performed By: #### L 500.2500, L101.9900, L100.0100, L501.6710 ####[facility] [address] [place], [address] GAP 5 Normal 5-15 [facility] Comment on above: Performed By: #### L 500.2500, L101.9900, L100.0100, L501.6710 ####[facility] [address] [place], [address] GFR/1.73 sq M.predicted among non-blacks MDRD (S/P/Bld) [Vol rate/Area] 89 mL/min/{1.73_m2} Normal >60 [facility] Comment on above: Result Comment: Non- GFR Calc Performed By: #### L 500.2500, L101.9900, L100.0100, L501.6710 ####[facility] [address] [place], [address] Glucose [Mass/Vol] 109 mg/dL High 74-106 [facility] Comment on above: Result Comment: Fast ing Glucose result from 100 to 125 mg/dLsuggests IMPAIRED HOMEOSTASIS per A.D.A. criteria. Performed By: #### L 500.2500, L101.9900, L100.0100, L501.6710 ####[facility] [address] [place], [address] Potassium [Moles/Vol] 3.7 mmol/L Normal 3.5-5.1 [facility] Comment on above: Performed By: #### L 500.2500, L101.9900, L100.0100, L501.6710 ####[facility] [address] [place], [address] Sodium [Moles/Vol] 138 mmol/L Normal 136-145 [facility] Comment on above: Performed By: #### L 500.2500, L101.9900, L100.0100, L501.6710 ####[facility] [address] [place], [address] Urea nitrogen [Mass/Vol] 10 mg/dL Normal 7-18 [facility] Comment on above: Performed By: #### L 500.2500, L101.9900, L100.0100, L501.6710 ####[facility] [address] [place], [address] CBC W/Diff, Automatedon 08-3 0-2023 Absolute Lymph 0.95 X10 3/uL Normal 0.83-4.51 [facility] Comment on above: Performed By: #### L 500.2500, L101.9900, L100.0100, L501.6710 ####[facility] [address] [place], [address] Absolute Neut 3.7 X10 3/uL Normal 2.0-7.7 [facility] Comment on above: Performed By: #### L 500.2500, L101.9900, L100.0100, L501.6710 ####[facility] [address] [place], [address] Basophils/100 WBC (Bld) 0.2 % Normal 0-1 [facility] Comment on above: Performed By: #### L 500.2500, L101.9900, L100.0100, L501.6710 ####[facility] [address] [place], [address] Eosinophils/100 WBC (Bld) 0.2 % Normal 0-5 [facility] Comment on above: Performed By: #### L 500.2500, L101.9900, L100.0100, L501.6710 ####[facility] [address] [place], [address] Erythrocyte distribution width (RBC) [Ratio] 14.9 % High 11.6-14.6 [facility] Comment on above: Performed By: #### L 500.2500, L101.9900, L100.0100, L501.6710 ####[facility] [address] [place], [address] Hematocrit (Bld) [Volume fraction] 33.8 % Low 37-47 [facility] Comment on above: Performed By: #### L 500.2500, L101.9900, L100.0100, L501.6710 ####[facility] [address] [place], [address] Hemoglobin (Bld) [Mass/Vol] 10.5 g/dL Low 12.0-15.0 [facility] Comment on above: Performed By: #### L 500.2500, L101.9900, L100.0100, L501.6710 ####[facility] [address] [place], [address] IG% 0.900 Normal 0.0-0.9 [facility] Comment on above: Result Comment: IG% - Immature Granulocytes (promyelocytes, myelocytes andmetamyelocytes) > 1% indicates that a LEFT SHIFT is Present. Performed By: #### L 500.2500, L101.9900, L100.0100, L501.6710 ####[facility] [address] [place], [address] Lymphocytes/100 WBC (Bld) 17.9 % Low 19-41 [facility] Comment on above: Performed By: #### L 500.2500, L101.9900, L100.0100, L501.6710 ####[facility] [address] [place], [address] MCH (RBC) [Entitic mass] 27.3 pg Normal 27.0-32.0 [facility] Comment on above: Performed By: #### L 500.2500, L101.9900, L100.0100, L501.6710 ####[facility] [address] [place], [address] MCHC (RBC) [Mass/Vol] 31.1 g/dL Low 32-36 [facility] Comment on above: Performed By: #### L 500.2500, L101.9900, L100.0100, L501.6710 ####[facility] [address] [place], [address] MCV (RBC) [Entitic vol] 87.8 fL Normal 81-99 [facility] Comment on above: Performed By: #### L 500.2500, L101.9900, L100.0100, L501.6710 ####[facility] [address] [place], [address] Monocytes/100 WBC (Bld) 10.9 % High 0-10 [facility] Comment on above: Performed By: #### L 500.2500, L101.9900, L100.0100, L501.6710 ####[facility] [address] [place], [address] Neutrophils/100 WBC (Bld) 69.9 % Normal 47-70 [facility] Comment on above: Performed By: #### L 500.2500, L101.9900, L100.0100, L501.6710 ####[facility] [address] [place], [address] Nucleated RBC (Bld) [#/Vol] 0 10*3/uL Normal 0-5 [facility] Comment on above: Performed By: #### L 500.2500, L101.9900, L100.0100, L501.6710 ####[facility] [address] [place], [address] Platelet mean volume (Bld) [Entitic vol] 9.8 fL Normal 6.2-12.0 [facility] Comment on above: Performed By: #### L 500.2500, L101.9900, L100.0100, L501.6710 ####[facility] [address] [place], [address] Platelets (Bld) [#/Vol] 180 10*3/uL Normal 150-450 [facility] Comment on above: Performed By: #### L 500.2500, L101.9900, L100.0100, L501.6710 ####[facility] [address] [place], [address] RBC (Bld) [#/Vol] 3.85 10*6/uL Low 4.2-5.4 [facility] Comment on above: Performed By: #### L 500.2500, L101.9900, L100.0100, L501.6710 ####[facility] [address] [place], [address] RDW SD 48.2 fl High 35.1-43.9 [facility] Comment on above: Performed By: #### L 500.2500, L101.9900, L100.0100, L501.6710 ####[facility] [address] [place], [address] WBC (Bld) [#/Vol] 5.3 10*3/uL Normal 4.4-11.0 [facility] Comment on above: Performed By: #### L 500.2500, L101.9900, L100.0100, L501.6710 ####[facility] [address] [place], [address] CRPon 07-29-2023 C-REACTIVE PROT 164.00 mg/L High 0.0-3.0 [facility] Comment on above: Result Comment: C-Re active Protein (CRP) provides useful information for thediagnosis, therapy and monitoring of inflammatory processesand associated diseases. For the evaluation of Relative Riskfor Cardiovascular Disease, a High Sensitivity CRP (HSCRP)should be ordered. Performed By: #### L 500.2500, L101.9900, L100.0100, L501.6710 ####[facility] [address] [place], [address] Echo Complete W/ Contraston 07-29-2023 Echo Complete W/ Contrast Normal [facility] Erythrocyte Sed Rateon 07-29 SED RATE 57 mm/hr High 0-30 [facility] Comment on above: Performed By: #### L 500.2500, L101.9900, L100.0100, L501.6710 ####[facility] [address] [place], [address] BNP,B-Type NATRIURETIC PEPTI DEOrdered By: Betty Calvin on 07-28-2023 Natriuretic peptide B (Bld) [Mass/Vol] 232.8 pg/mL High 0-100 [facility] Comment on above: Performed By: #### L 503.6620 ####[facility] [address] [place], [address] Basic Metabolic Profile (BMP )on 07-28-2023 BUN/CRE 10.5 RATIO Normal 10-20 [facility] Comment on above: Performed By: #### L 500.2500, L100.0100 ####[facility] [address] [place], [address] CA,Total 8.8 mg/dL Normal 8.5-10.1 [facility] Comment on above: Performed By: #### L 500.2500, L100.0100 ####[facility] [address] [place], [address] Chloride [Moles/Vol] 107 mmol/L Normal 98-107 [facility] Comment on above: Performed By: #### L 500.2500, L100.0100 ####[facility] [address] [place], [address] CO2 [Moles/Vol] 25.0 mmol/L Normal 21.0-32.0 [facility] Comment on above: Performed By: #### L 500.2500, L100.0100 ####[facility] [address] [place], [address] Creatinine [Mass/Vol] 0.66 mg/dL Normal 0.55-1.02 [facility] Comment on above: Result Comment: The validity of the calculated GFR GFRAA in patients over70 years has not been determined. Clinical correlation isessential. Performed By: #### L 500.2500, L100.0100 ####[facility] [address] [place], [address] ECRCL 83.17 ml/min Normal [facility] Comment on above: Performed By: #### L 500.2500, L100.0100 ####[facility] [address] [place], [address] EST GFR - AA 118 mL/min Normal >60 [facility] Comment on above: Result Comment: Afri can Anguillan GFR Calc Performed By: #### L 500.2500, L100.0100 ####[facility] [address] [place], [address] GAP 6 Normal 5-15 [facility] Comment on above: Performed By: #### L 500.2500, L100.0100 ####[facility] [address] [place], [address] GFR/1.73 sq M.predicted among non-blacks MDRD (S/P/Bld) [Vol rate/Area] 98 mL/min/{1.73_m2} Normal >60 [facility] Comment on above: Result Comment: Non- GFR Calc Performed By: #### L 500.2500, L100.0100 ####[facility] [address] [place], [address] Glucose [Mass/Vol] 106 mg/dL Normal 74-106 [facility] Comment on above: Result Comment: Fast ing Glucose result from 100 to 125 mg/dLsuggests IMPAIRED HOMEOSTASIS per A.D.A. criteria. Performed By: #### L 500.2500, L100.0100 ####[facility] [address] [place], [address] Potassium [Moles/Vol] 3.9 mmol/L Normal 3.5-5.1 [facility] Comment on above: Performed By: #### L 500.2500, L100.0100 ####[facility] [address] [place], [address] Sodium [Moles/Vol] 138 mmol/L Normal 136-145 [facility] Comment on above: Performed By: #### L 500.2500, L100.0100 ####[facility] [address] [place], [address] Urea nitrogen [Mass/Vol] 7 mg/dL Normal 7-18 [facility] Comment on above: Performed By: #### L 500.2500, L100.0100 ####[facility] [address] [place], [address] CBC W/Diff, Automatedon 07-01 Absolute Lymph 0.97 X10 3/uL Normal 0.83-4.51 [facility] Comment on above: Performed By: #### L 500.2500, L100.0100 ####[facility] [address] [place], [address] Absolute Neut 4.2 X10 3/uL Normal 2.0-7.7 [facility] Comment on above: Performed By: #### L 500.2500, L100.0100 ####[facility] [address] [place], [address] Basophils/100 WBC (Bld) 0.2 % Normal 0-1 [facility] Comment on above: Performed By: #### L 500.2500, L100.0100 ####[facility] [address] [place], [address] Eosinophils/100 WBC (Bld) 0.2 % Normal 0-5 [facility] Comment on above: Performed By: #### L 500.2500, L100.0100 ####[facility] [address] [place], [address] Erythrocyte distribution width (RBC) [Ratio] 15.2 % High 11.6-14.6 [facility] Comment on above: Performed By: #### L 500.2500, L100.0100 ####[facility] [address] [place], [address] Hematocrit (Bld) [Volume fraction] 33.8 % Low 37-47 [facility] Comment on above: Performed By: #### L 500.2500, L100.0100 ####[facility] [address] [place], [address] Hemoglobin (Bld) [Mass/Vol] 10.5 g/dL Low 12.0-15.0 [facility] Comment on above: Performed By: #### L 500.2500, L100.0100 ####[facility] [address] [place], [address] IG% 0.700 Normal 0.0-0.9 [facility] Comment on above: Result Comment: IG% - Immature Granulocytes (promyelocytes, myelocytes andmetamyelocytes) > 1% indicates that a LEFT SHIFT is Present. Performed By: #### L 500.2500, L100.0100 ####[facility] [address] [place], [address] Lymphocytes/100 WBC (Bld) 16.6 % Low 19-41 [facility] Comment on above: Performed By: #### L 500.2500, L100.0100 ####[facility] [address] [place], [address] MCH (RBC) [Entitic mass] 27.1 pg Normal 27.0-32.0 [facility] Comment on above: Performed By: #### L 500.2500, L100.0100 ####[facility] [address] [place], [address] MCHC (RBC) [Mass/Vol] 31.1 g/dL Low 32-36 [facility] Comment on above: Performed By: #### L 500.2500, L100.0100 ####[facility] [address] [place], [address] MCV (RBC) [Entitic vol] 87.3 fL Normal 81-99 [facility] Comment on above: Performed By: #### L 500.2500, L100.0100 ####[facility] [address] [place], [address] Monocytes/100 WBC (Bld) 11.3 % High 0-10 [facility] Comment on above: Performed By: #### L 500.2500, L100.0100 ####[facility] [address] [place], [address] Neutrophils/100 WBC (Bld) 71.0 % High 47-70 [facility] Comment on above: Performed By: #### L 500.2500, L100.0100 ####[facility] [address] [place], [address] Nucleated RBC (Bld) [#/Vol] 0 10*3/uL Normal 0-5 [facility] Comment on above: Performed By: #### L 500.2500, L100.0100 ####[facility] [address] [place], [address] Platelet mean volume (Bld) [Entitic vol] 10.3 fL Normal 6.2-12.0 [facility] Comment on above: Performed By: #### L 500.2500, L100.0100 ####[facility] [address] [place], [address] Platelets (Bld) [#/Vol] 175 10*3/uL Normal 150-450 [facility] Comment on above: Performed By: #### L 500.2500, L100.0100 ####[facility] [address] [place], [address] RBC (Bld) [#/Vol] 3.87 10*6/uL Low 4.2-5.4 [facility] Comment on above: Performed By: #### L 500.2500, L100.0100 ####[facility] [address] [place], [address] RDW SD 48.9 fl High 35.1-43.9 [facility] Comment on above: Performed By: #### L 500.2500, L100.0100 ####[facility] [address] [place], [address] WBC (Bld) [#/Vol] 5.9 10*3/uL Normal 4.4-11.0 [facility] Comment on above: Performed By: #### L 500.2500, L100.0100 ####[facility] [address] [place], [address] Chest 1 View (Portable)on Chest 1 View (Portable) Normal [facility] Basic Metabolic Profile (BMP )on 07-27-2023 BUN/CRE 11.1 RATIO Normal 10-20 [facility] Comment on above: Performed By: #### L 500.2500, L101.9900, L100.0100, L501.6710 ####[facility] [address] [place], [address] CA,Total 8.1 mg/dL Low 8.5-10.1 [facility] Comment on above: Performed By: #### L 500.2500, L101.9900, L100.0100, L501.6710 ####[facility] [address] [place], [address] Chloride [Moles/Vol] 108 mmol/L High 98-107 [facility] Comment on above: Performed By: #### L 500.2500, L101.9900, L100.0100, L501.6710 ####[facility] [address] [place], [address] CO2 [Moles/Vol] 27.0 mmol/L Normal 21.0-32.0 [facility] Comment on above: Performed By: #### L 500.2500, L101.9900, L100.0100, L501.6710 ####[facility] [address] [place], [address] Creatinine [Mass/Vol] 0.72 mg/dL Normal 0.55-1.02 [facility] Comment on above: Result Comment: The validity of the calculated GFR GFRAA in patients over70 years has not been determined. Clinical correlation isessential. Performed By: #### L 500.2500, L101.9900, L100.0100, L501.6710 ####[facility] [address] [place], [address] ECRCL 76.24 ml/min Normal [facility] Comment on above: Performed By: #### L 500.2500, L101.9900, L100.0100, L501.6710 ####[facility] [address] [place], [address] EST GFR - AA 108 mL/min Normal >60 [facility] Comment on above: Result Comment: Afri can Anguillan GFR Calc Performed By: #### L 500.2500, L101.9900, L100.0100, L501.6710 ####[facility] [address] [place], [address] GAP 3 Low 5-15 [facility] Comment on above: Performed By: #### L 500.2500, L101.9900, L100.0100, L501.6710 ####[facility] [address] [place], [address] GFR/1.73 sq M.predicted among non-blacks MDRD (S/P/Bld) [Vol rate/Area] 89 mL/min/{1.73_m2} Normal >60 [facility] Comment on above: Result Comment: Non- GFR Calc Performed By: #### L 500.2500, L101.9900, L100.0100, L501.6710 ####[facility] [address] [place], [address] Glucose [Mass/Vol] 110 mg/dL High 74-106 [facility] Comment on above: Result Comment: Fast ing Glucose result from 100 to 125 mg/dLsuggests IMPAIRED HOMEOSTASIS per A.D.A. criteria. Performed By: #### L 500.2500, L101.9900, L100.0100, L501.6710 ####[facility] [address] [place], [address] Potassium [Moles/Vol] 3.9 mmol/L Normal 3.5-5.1 [facility] Comment on above: Performed By: #### L 500.2500, L101.9900, L100.0100, L501.6710 ####[facility] [address] [place], [address] Sodium [Moles/Vol] 138 mmol/L Normal 136-145 [facility] Comment on above: Performed By: #### L 500.2500, L101.9900, L100.0100, L501.6710 ####[facility] [address] [place], [address] Urea nitrogen [Mass/Vol] 8 mg/dL Normal 7-18 [facility] Comment on above: Performed By: #### L 500.2500, L101.9900, L100.0100, L501.6710 ####[facility] [address] [place], [address] CBC W/Diff, Automatedon 07-01 Absolute Lymph 0.93 X10 3/uL Normal 0.83-4.51 [facility] Comment on above: Performed By: #### L 500.2500, L101.9900, L100.0100, L501.6710 ####[facility] [address] [place], [address] Absolute Neut 4.7 X10 3/uL Normal 2.0-7.7 [facility] Comment on above: Performed By: #### L 500.2500, L101.9900, L100.0100, L501.6710 ####[facility] [address] [place], [address] Basophils/100 WBC (Bld) 0.2 % Normal 0-1 [facility] Comment on above: Performed By: #### L 500.2500, L101.9900, L100.0100, L501.6710 ####[facility] [address] [place], [address] Eosinophils/100 WBC (Bld) 0.2 % Normal 0-5 [facility] Comment on above: Performed By: #### L 500.2500, L101.9900, L100.0100, L501.6710 ####[facility] [address] [place], [address] Erythrocyte distribution width (RBC) [Ratio] 15.5 % High 11.6-14.6 [facility] Comment on above: Performed By: #### L 500.2500, L101.9900, L100.0100, L501.6710 ####[facility] [address] [place], [address] Hematocrit (Bld) [Volume fraction] 33.6 % Low 37-47 [facility] Comment on above: Performed By: #### L 500.2500, L101.9900, L100.0100, L501.6710 ####[facility] [address] [place], [address] Hemoglobin (Bld) [Mass/Vol] 10.3 g/dL Low 12.0-15.0 [facility] Comment on above: Performed By: #### L 500.2500, L101.9900, L100.0100, L501.6710 ####[facility] [address] [place], [address] IG% 0.600 Normal 0.0-0.9 [facility] Comment on above: Result Comment: IG% - Immature Granulocytes (promyelocytes, myelocytes andmetamyelocytes) > 1% indicates that a LEFT SHIFT is Present. Performed By: #### L 500.2500, L101.9900, L100.0100, L501.6710 ####[facility] [address] [place], [address] Lymphocytes/100 WBC (Bld) 14.6 % Low 19-41 [facility] Comment on above: Performed By: #### L 500.2500, L101.9900, L100.0100, L501.6710 ####[facility] [address] [place], [address] MCH (RBC) [Entitic mass] 27.2 pg Normal 27.0-32.0 [facility] Comment on above: Performed By: #### L 500.2500, L101.9900, L100.0100, L501.6710 ####[facility] [address] [place], [address] MCHC (RBC) [Mass/Vol] 30.7 g/dL Low 32-36 [facility] Comment on above: Performed By: #### L 500.2500, L101.9900, L100.0100, L501.6710 ####[facility] [address] [place], [address] MCV (RBC) [Entitic vol] 88.9 fL Normal 81-99 [facility] Comment on above: Performed By: #### L 500.2500, L101.9900, L100.0100, L501.6710 ####[facility] [address] [place], [address] Monocytes/100 WBC (Bld) 10.7 % High 0-10 [facility] Comment on above: Performed By: #### L 500.2500, L101.9900, L100.0100, L501.6710 ####[facility] [address] [place], [address] Neutrophils/100 WBC (Bld) 73.7 % High 47-70 [facility] Comment on above: Performed By: #### L 500.2500, L101.9900, L100.0100, L501.6710 ####[facility] [address] [place], [address] Nucleated RBC (Bld) [#/Vol] 0 10*3/uL Normal 0-5 [facility] Comment on above: Performed By: #### L 500.2500, L101.9900, L100.0100, L501.6710 ####[facility] [address] [place], [address] Platelet mean volume (Bld) [Entitic vol] 10.2 fL Normal 6.2-12.0 [facility] Comment on above: Performed By: #### L 500.2500, L101.9900, L100.0100, L501.6710 ####[facility] [address] [place], [address] Platelets (Bld) [#/Vol] 163 10*3/uL Normal 150-450 [facility] Comment on above: Performed By: #### L 500.2500, L101.9900, L100.0100, L501.6710 ####[facility] [address] [place], [address] RBC (Bld) [#/Vol] 3.78 10*6/uL Low 4.2-5.4 [facility] Comment on above: Performed By: #### L 500.2500, L101.9900, L100.0100, L501.6710 ####[facility] [address] [place], [address] RDW SD 50.8 fl High 35.1-43.9 [facility] Comment on above: Performed By: #### L 500.2500, L101.9900, L100.0100, L501.6710 ####[facility] [address] [place], [address] WBC (Bld) [#/Vol] 6.4 10*3/uL Normal 4.4-11.0 [facility] Comment on above: Performed By: #### L 500.2500, L101.9900, L100.0100, L501.6710 ####[facility] [address] [place], [address] CRPon 07-27-2023 C-REACTIVE PROT 138.00 mg/L High 0.0-3.0 [facility] Comment on above: Result Comment: C-Re active Protein (CRP) provides useful information for thediagnosis, therapy and monitoring of inflammatory processesand associated diseases. For the evaluation of Relative Riskfor Cardiovascular Disease, a High Sensitivity CRP (HSCRP)should be ordered. Performed By: #### L 500.2500, L101.9900, L100.0100, L501.6710 ####[facility] [id number] [place], [place], [address] Consultation - Infectious Dx on 07-27-2023 Consultation - Infectious Dx Normal [facility] Erythrocyte Sed Rateon 07-27 SED RATE 47 mm/hr High 0-30 [facility] Comment on above: Performed By: #### L 500.2500, L101.9900, L100.0100, L501.6710 ####[facility] [address] [place], [place], [id number] No Panel InformationOrdered By: Adrianna Mejia on 07-26-2023 Methicillin-Resist S.aureus DNA PCR Negative Negative [facility] Staphylococcus aureus DNA de tection by probe and target amplification methodOrdered By: Adrianna Mejia on 07-26-2023 S. aureus DNA CHANTELL+probe Ql (Unsp spec) Positive Negative [facility] Vancomycin troughOrdered By: Betty Calvin on 07-26-2023 Vancomycin trough [Mass/Vol] 15.1 ug/mL 5.0-15.0 [facility] Comment on above: VANCOMYCIN STANDARED DRUG THERAPY TROUGH LEVEL: 5.0 - 15.0 mg/L VANCOMYCIN HIGH INTENSITY THERAPY TROUGH LEVEL: 15.0 - 20.0 mg/L High Intensity therapy recommended for serious lifethreatening infections include:- Bnewdboibk-Qvgkkjmhxmaz-Kgqfwdatz (Ventilator/Healtcare Associated)-Sepsis PLEASE CONTACT PHARMACY SERVICES (#[phone]) FOR INTERPRETATIONOF RESULTS. Basophil percentageOrdered B y: Betty Calvin on 07-25-2023 Bilirubin [Mass/Vol] 0.60 mg/dL 0.20-1.00 [facility] Comment on above: For patients on eltr ombopag therapy, use of [employer] TBIL is not recommended. Lactate [Moles/Vol] 1.5 mmol/L 0.4-2.0 [facility] Protein [Mass/Vol] 7.0 g/dL 6.4-8.2 [facility] Basophil percentageOrdered B y: Adrianna Mejia on 07-25-2023 Basophil percentage 2.9 mg/dL 2.5-4.9 [facility] Blood manual differential co mment interpretation (narrative result)Ordered By: Adrianna Mejia on 07-25-2023 Manual differential comment Terry (Bld) [Interp] SCANNED [facility] Comment on above: LYMPHOPENIA PRESENT Laboratory - Chemistry and C hemistry - challengeOrdered By: Betty Calvin on 07-25-2023 ALP [Catalytic activity/Vol] 71 U/L 45-117 [facility] ALT [Catalytic activity/Vol] 20 U/L 13-56 [facility] Globulin (S) [Mass/Vol] 3.9 g/dL 2.2-4.2 [facility] Laboratory - Chemistry and C hemistry - challengeOrdered By: Adrianna Mejia on 07-25-2023 Magnesium [Mass/Vol] 1.8 mg/dL 1.6-2.6 [facility] Laboratory - Microbiology an d Antimicrobial susceptibilityOrdered By: Betty Calvin on 07-25-2023 Bacteria identified Cx Nom (Bld) No growth in 5 days. [facility] No Panel InformationOrdered By: Adrianna Mejia on 07-25-2023 Thyroid Stimulating Hormone (TSH) 1.67 uIU/mL 0.358-3.74 [facility] Serum or plasma albumin herson urement (mass/volume)Ordered By: Betty Calvin on 07-25-2023 Albumin [Mass/Vol] 3.1 g/dL 3.2-5.0 [facility] Serum or plasma albumin/glob ulin mass ratioOrdered By: Betty Calvin on 07-25-2023 Albumin/Globulin [Mass ratio] 0.8 {ratio} 0.9-2.4 [facility] Serum procalcitonin measurem entOrdered By: Betty Calvin on 07-25-2023 Procalcitonin [Mass/Vol] 0.10 ng/mL 0.00-0.09 [facility] Comment on above: A procalcitonin (PCT ) [...] smear with manual screening 14 U/L 15-37 [facility] Absolute lymphocyte countOrd ered By: Arthur Lara on 07-24-2023 Lymphocytes Auto (Unsp spec) [#/Vol] 0.90 10*3/uL 0.83-4.51 [facility] Basophil percentageOrdered B y: Arthur Lara on 07-24-2023 Basophils/100 WBC (Bld) 0.1 % 0-1 [facility] Bilirubin [Mass/Vol] 0.30 mg/dL 0.20-1.00 [facility] Comment on above: For patients on eltr ombopag therapy, use of [employer] TBIL is not recommended. Chloride [Moles/Vol] 107 mmol/L 98-107 [facility] Eosinophils/100 WBC (Bld) 0.0 % 0-5 [facility] Glucose [Mass/Vol] 118 mg/dL 74-106 [facility] Comment on above: Fasting Glucose resu lt from 100 to 125 mg/dL suggests IMPAIRED HOMEOSTASIS per A.D.A. criteria. Lactate [Moles/Vol] 1.6 mmol/L 0.4-2.0 [facility] Neutrophils (Bld) [#/Vol] 9.4 10*3/uL 2.0-7.7 [facility] Neutrophils/100 WBC (Bld) 84.5 % 47-70 [facility] Potassium [Moles/Vol] 4.2 mmol/L 3.5-5.1 [facility] Protein [Mass/Vol] 7.1 g/dL 6.4-8.2 [facility] Sodium [Moles/Vol] 138 mmol/L 136-145 [facility] WBC (Bld) [#/Vol] 11.1 10*3/uL 4.4-11.0 [facility] Blood erythrocytes count (nu mber/volume)Ordered By: Arthur Lara on 07-24-2023 RBC (Bld) [#/Vol] 4.40 10*6/uL 4.2-5.4 [facility] Blood hemoglobin measurement (mass/volume)Ordered By: Arthur Lara on 07-24-2023 Hemoglobin (Bld) [Mass/Vol] 12.2 g/dL 12.0-15.0 [facility] Blood lymphocytes/100 leukoc ytesOrdered By: Arthur Lara on 07-24-2023 Lymphocytes/100 WBC (Bld) 8.1 % 19-41 [facility] Blood monocytes/100 leukocyt esOrdered By: Arthur Lara on 07-24-2023 Monocytes/100 WBC (Bld) 6.7 % 0-10 [facility] Blood platelet mean volumeOr dered By: Arthur Lara on 07-24-2023 Platelet mean volume (Bld) [Entitic vol] 9.2 fL 6.2-12.0 [facility] Determination of erythrocyte mean corpuscular volume (MCV)Ordered By: Arthur Lara on 07-24-2023 MCV (RBC) [Entitic vol] 86.4 fL 81-99 [facility] Erythrocyte sedimentation ra teOrdered By: Adrianna Mejia on 07-24-2023 ESR (Bld) [Velocity] 35 mm/h 0-30 [facility] Hematocrit Auto (Bld) [Volum e fraction]Ordered By: Arthur Lara on 07-24-2023 Hematocrit (Bld) [Volume fraction] 38.0 % 37-47 [facility] Laboratory - Chemistry and C hemistry - challengeOrdered By: Arthur Lara on 07-24-2023 ALP [Catalytic activity/Vol] 87 U/L 45-117 [facility] ALT [Catalytic activity/Vol] 19 U/L 13-56 [facility] CO2 [Moles/Vol] 28.0 mmol/L 21.0-32.0 [facility] Globulin (S) [Mass/Vol] 3.9 g/dL 2.2-4.2 [facility] Urea nitrogen/Creatinine [Mass ratio] 23.4 mg/mg 10-20 [facility] Laboratory - Hematology and Cell countsOrdered By: Arthur Lara on 07-24-2023 Erythrocyte distribution width (RBC) [Entitic vol] 48.1 fL 35.1-43.9 [facility] Erythrocyte distribution width (RBC) [Ratio] 15.2 % 11.6-14.6 [facility] Immature granulocytes/100 WBC (Bld) 0.600 % 0.0-0.9 [facility] Comment on above: IG% - Immature Granu locytes (promyelocytes, myelocytes and metamyelocytes) > 1% indicates that a LEFT SHIFT is Present. MCH (RBC) [Entitic mass] 27.7 pg 27.0-32.0 [facility] Nucleated RBC/100 WBC (Bld) [Ratio] 0 % 0-5 [facility] MCHC Auto (RBC) [Mass/Vol]Or dered By: Arthur Lara on 07-24-2023 MCHC (RBC) [Mass/Vol] 32.1 g/dL 32-36 [facility] No Panel InformationOrdered By: Arthur Lara on 07-24-2023 Estimated Creatinine Clearance Calc 66.51 ml/min [facility] Estimated GFR (MDRD) Amer 89 mL/min >60 [facility] Comment on above: GFR Calc Estimated GFR (MDRD) Non-Af Amer 73 mL/min >60 [facility] Comment on above: Non- GFR Calc Platelets bldOrdered By: Louann Lara on 07-24-2023 Platelets (Bld) [#/Vol] 209 10*3/uL 150-450 [facility] Serum or plasma C reactive p rotein measurement (mass/volume)Ordered By: Adrianna Mejia on 07-24-2023 CRP [Mass/Vol] 21.50 mg/L 0.0-3.0 [facility] Comment on above: C-Reactive Protein ( CRP) provides useful information for thediagnosis, therapy and monitoring of inflammatory processesand associated diseases. For the evaluation of Relative Riskfor Cardiovascular Disease, a High Sensitivity CRP (HSCRP)should be ordered. Serum or plasma albumin herson urement (mass/volume)Ordered By: Arthur Lara on 07-24-2023 Albumin [Mass/Vol] 3.2 g/dL 3.2-5.0 [facility] Serum or plasma albumin/glob ulin mass ratioOrdered By: Arthur Lara on 07-24-2023 Albumin/Globulin [Mass ratio] 0.8 {ratio} 0.9-2.4 [facility] Serum or plasma calcium herson urement (mass/volume)Ordered By: Arthur Lara on 07-24-2023 Calcium [Mass/Vol] 8.9 mg/dL 8.5-10.1 [facility] Serum or plasma creatinine m easurement (mass/volume)Ordered By: Arthur Lara on 07-24-2023 Creatinine [Mass/Vol] 0.86 mg/dL 0.55-1.02 [facility] Comment on above: The validity of the calculated GFR & GFRAA in patients over 70 years has not been determined. Clinical correlation is essential. Serum or plasma urea nitroge n measurement (mass/volume)Ordered By: Arthur Lara on 07-24-2023 Urea nitrogen [Mass/Vol] 20 mg/dL 7-18 [facility] Thin prep Papanicolaou smear with manual screeningOrdered By: Arthur Lara on 07-24-2023 Thin prep Papanicolaou smear with manual screening 12 U/L 15-37 [facility] Thin prep Papanicolaou smear with manual screening 3 5-15 [facility] Whole blood hemoglobin A1c/t otal hemoglobin ratio (mass fraction)Ordered By: Adrianna Mejia on 07-24-2023 HbA1c (Bld) [Mass fraction] 5.9 % 3.8-5.6 [facility] Comment on above: Normal < 5.7 % Predi abetic 5.7 - 6.4 % Diabetic >or= 6.5 % Please note range changes. Laboratory - Hematology and Cell countson 07-16-2023 Basophils (Bld) [#/Vol] 0.007 10*3/uL Normal 0 - 200 {cells/uL} [facility] [employer] [facility]. Basophils/100 WBC (Bld) 0.1 % Normal [facility].; [facility], [facility]. Eosinophils (Bld) [#/Vol] 0.007 10*3/uL Abnormal 15 - 500 {cells/uL} [facility], [facility].; [employer] [facility], [facility]. Eosinophils/100 WBC (Bld) 0.1 % Normal [facility].; [employer] [facility], [facility]. Erythrocyte distribution width (RBC) [Ratio] 14.3 % Normal 11.0 - 15.0 % [facility].; [employer] [facility], [facility]. Hematocrit (Bld) [Volume fraction] 40.3 % Normal 35.0 - 45.0 % [facility], [facility].; [employer] [facility], [facility]. Hemoglobin (Bld) [Mass/Vol] 13.2 g/dL Normal 11.7 - 15.5 g/dL [facility].; [employer] [facility], [facility]. Lymphocytes (Bld) [#/Vol] 1.414 10*3/uL Normal 850 - 3900 {cells/uL} [facility].; [employer], [facility]. Lymphocytes/100 WBC (Bld) 21.1 % Normal [facility].; [employer] [facility], [facility]. MCH (RBC) [Entitic mass] 26.9 pg Abnormal 27.0 - 33.0 pg [facility], [facility].; [employer], [facility]. MCHC (RBC) [Mass/Vol] 32.8 g/dL Normal 32.0 - 36.0 g/dL [facility].; [employer], [facility]. MCV (RBC) [Entitic vol] 82.2 fL Normal 80.0 - 100.0 fL [employer] [facility].; [employer] [facility], [facility]. Monocytes (Bld) [#/Vol] 0.469 10*3/uL Normal 200 - 950 {cells/uL} [facility], [facility].; [employer], [facility]. Monocytes/100 WBC (Bld) 7.0 % Normal [facility].; [employer], [facility]. Neutrophils (Bld) [#/Vol] 4.804 10*3/uL Normal 1500 - 7800 {cells/uL} [employer] Neutrophils/100 WBC (Bld) 71.7 % Normal [facility] [employer] Platelet mean volume (Bld) [Entitic vol] 9.7 fL Normal 7.5 - 12.5 fL [facility].; [employer] Platelets (Bld) [#/Vol] 295 10*3/uL Normal 140 - 400 [facility].; [employer] RBC (Bld) [#/Vol] 4.90 10*6/uL Normal 3.80 - 5.1 0 {Million/uL} [employer] WBC (Bld) [#/Vol] 6.7 10*3/uL Normal 3.8 - 10.8 [employer] No Panel Informationon 07-16 COMMENT(S) SEE NOTE Normal [employer] Absolute lymphocyte countOrd ered By: Kolby Guan on 07-08-2023 Lymphocytes Auto (Unsp spec) [#/Vol] 0.36 10*3/uL 0.83-4.51 [facility] Basophil percentageOrdered B y: Kolby Guan on 07-08-2023 Basophils/100 WBC (Bld) 0.1 % 0-1 [facility] Bilirubin [Mass/Vol] 0.70 mg/dL 0.20-1.00 [facility] Comment on above: For patients on eltr ombopag therapy, use of [employer] TBIL is not recommended. Chloride [Moles/Vol] 100 mmol/L 98-107 [facility] Eosinophils/100 WBC (Bld) 0.0 % 0-5 [facility] Glucose [Mass/Vol] 111 mg/dL 74-106 [facility] Comment on above: Fasting Glucose resu lt from 100 to 125 mg/dL suggests IMPAIRED HOMEOSTASIS per A.D.A. criteria. Lactate [Moles/Vol] 1.6 mmol/L 0.4-2.0 [facility] Neutrophils (Bld) [#/Vol] 13.7 10*3/uL 2.0-7.7 [facility] Neutrophils/100 WBC (Bld) 92.5 % 47-70 [facility] Potassium [Moles/Vol] 4.4 mmol/L 3.5-5.1 [facility] Protein [Mass/Vol] 7.3 g/dL 6.4-8.2 [facility] Sodium [Moles/Vol] 134 mmol/L 136-145 [facility] WBC (Bld) [#/Vol] 14.9 10*3/uL 4.4-11.0 [facility] Blood erythrocytes count (nu mber/volume)Ordered By: Kolby Guan on 07-08-2023 RBC (Bld) [#/Vol] 4.58 10*6/uL 4.2-5.4 [facility] Blood hemoglobin measurement (mass/volume)Ordered By: Kolby Guan on 07-08-2023 Hemoglobin (Bld) [Mass/Vol] 12.6 g/dL 12.0-15.0 [facility] Blood lymphocytes/100 leukoc ytesOrdered By: Kolby Guan on 07-08-2023 Lymphocytes/100 WBC (Bld) 2.4 % 19-41 [facility] Blood manual differential co mment interpretation (narrative result)Ordered By: Kolby Guan on 07-08-2023 Manual differential comment Terry (Bld) [Interp] SCANNED [facility] Blood monocytes/100 leukocyt esOrdered By: Kolby Guan on 07-08-2023 Monocytes/100 WBC (Bld) 4.4 % 0-10 [facility] Blood platelet mean volumeOr dered By: Kolby Guan on 07-08-2023 Platelet mean volume (Bld) [Entitic vol] 9.9 fL 6.2-12.0 [facility] Determination of erythrocyte mean corpuscular volume (MCV)Ordered By: Kolby Guan on 07-08-2023 MCV (RBC) [Entitic vol] 87.3 fL 81-99 [facility] Hematocrit Auto (Bld) [Volum e fraction]Ordered By: Kolby Guan on 07-08-2023 Hematocrit (Bld) [Volume fraction] 40.0 % 37-47 [facility] INR in Blood by Coagulation assayOrdered By: Kolby Guan on 07-08-2023 INR Coag (Bld) [Relative time] 1.1 {INR} [facility] Laboratory - Chemistry and C hemistry - challengeOrdered By: Kolby Guan on 07-08-2023 ALP [Catalytic activity/Vol] 79 U/L 45-117 [facility] ALT [Catalytic activity/Vol] 22 U/L 13-56 [facility] CO2 [Moles/Vol] 28.0 mmol/L 21.0-32.0 [facility] Globulin (S) [Mass/Vol] 4.0 g/dL 2.2-4.2 [facility] Urea nitrogen/Creatinine [Mass ratio] 18.7 mg/mg 10-20 [facility] Laboratory - CoagulationOrde red By: Kolby Guan on 07-08-2023 aPTT Coag (Bld) [Time] 35.2 s 24.1-36.2 [facility] PT Coag (PPP) [Time] 13.8 s 11.7-14.9 [facility] Laboratory - Hematology and Cell countsOrdered By: Kolby Guan on 07-08-2023 Erythrocyte distribution width (RBC) [Entitic vol] 49.1 fL 35.1-43.9 [facility] Erythrocyte distribution width (RBC) [Ratio] 15.4 % 11.6-14.6 [facility] Immature granulocytes/100 WBC (Bld) 0.600 % 0.0-0.9 [facility] Comment on above: IG% - Immature Granu locytes (promyelocytes, myelocytes and metamyelocytes) > 1% indicates that a LEFT SHIFT is Present. MCH (RBC) [Entitic mass] 27.5 pg 27.0-32.0 [facility] Nucleated RBC/100 WBC (Bld) [Ratio] 0 % 0-5 [facility] Laboratory - Microbiology an d Antimicrobial susceptibilityOrdered By: Kolby Guan on 07-08-2023 Bacteria identified Cx Nom (Bld) No growth in 5 days. [facility] MCHC Auto (RBC) [Mass/Vol]Or dered By: Kolby Guan on 07-08-2023 MCHC (RBC) [Mass/Vol] 31.5 g/dL 32-36 [facility] No Panel InformationOrdered By: Kolby Guan on 07-08-2023 Estimated Creatinine Clearance Calc 57.18 ml/min [facility] Estimated GFR (MDRD) Amer 77 mL/min >60 [facility] Comment on above: GFR Calc Estimated GFR (MDRD) Non-Af Amer 64 mL/min >60 [facility] Comment on above: Non- GFR Calc Platelets bldOrdered By: Dean Guan on 07-08-2023 Platelets (Bld) [#/Vol] 169 10*3/uL 150-450 [facility] Serum or plasma albumin herson urement (mass/volume)Ordered By: Kolby Guan on 07-08-2023 Albumin [Mass/Vol] 3.3 g/dL 3.2-5.0 [facility] Serum or plasma albumin/glob ulin mass ratioOrdered By: oKlby Guan on 07-08-2023 Albumin/Globulin [Mass ratio] 0.8 {ratio} 0.9-2.4 [facility] Serum or plasma calcium herson urement (mass/volume)Ordered By: Kolby Guan on 07-08-2023 Calcium [Mass/Vol] 9.0 mg/dL 8.5-10.1 [facility] Serum or plasma creatinine m easurement (mass/volume)Ordered By: Kolby Guan on 07-08-2023 Creatinine [Mass/Vol] 0.96 mg/dL 0.55-1.02 [facility] Comment on above: The validity of the calculated GFR & GFRAA in patients over 70 years has not been determined. Clinical correlation is essential. Serum or plasma urea nitroge n measurement (mass/volume)Ordered By: Kolby Guan on 07-08-2023 Urea nitrogen [Mass/Vol] 18 mg/dL 7-18 [facility] Thin prep Papanicolaou smear with manual screeningOrdered By: Kolby Guan on 07-08-2023 Thin prep Papanicolaou smear with manual screening 16 U/L 15-37 [facility] Thin prep Papanicolaou smear with manual screening 6 5-15 [facility] NICOTINE+METABOLITES,Son COTININE <5 Normal [facility] Comment on above: Performed By: #### F OLA2 #### [facility] [address] [place] [address] NICOTINE <5 Normal [facility] Comment on above: Result Comment: Cons istent [...] developed and its performance characteristics determined by [facility]. It has not been cleared or approved by the [place] Food and Drug Administration. This test was performed in a CLIA certified laboratory and is intended for clinical purposes. Performed By: [facility] [address] [place] [address] [employer] Technician: Damien Hernandez MD, PhD Performed By: #### F OLA2 #### [facility] [address] [place] [address] VIT B1-THIAMINE WHOLE BLDon 02-07-2023 VIT B1-THIAMINE WHOLE BLD 167 nmol/L Normal 70-180 [facility] Comment on above: Result Comment: INTE RPRETIVE INFORMATION: Vitamin B1, Whole Blood This assay measures the concentration of thiamine diphosphate (TDP), the primary active form of vitamin B1. Approximately 90 percent of vitamin B1 present in whole blood is TDP. Thiamine and thiamine monophosphate, which comprise the remaining 10 percent, are not measured. This test was developed and its performance characteristics determined by [facility]. It has not been cleared or approved by the [place] Food and Drug Administration. This test was performed in a CLIA certified laboratory and is intended for clinical purposes. Performed By: [facility] [address] [place] [id number] [employer] Technician: Damien Hernandez MD, PhD Performed By: #### V TB1W #### [address] [address] COPPERon 02-05-2023 COPPER 152.7 ug/dL Normal 80.0-155.0 [facility] Comment on above: Result Comment: INTE RPRETIVE [...] developed and its performance characteristics determined by [facility]. It has not been cleared or approved by the [place] Food and Drug Administration. This test was performed in a CLIA certified laboratory and is intended for clinical purposes. Performed By: [facility] [address] [place] [address] [employer] Technician: Damien Hernandez MD, PhD Performed By: #### F OLA2 #### [facility] [address] [place] [id number] ZINCon 02-05-2023 ZINC 89.2 ug/dL Normal 60.0-120.0 [facility] Comment on above: Result Comment: INTE RPRETIVE [...] developed and its performance characteristics determined by [facility]. It has not been cleared or approved by the [place] Food and Drug Administration. This test was performed in a CLIA certified laboratory and is intended for clinical purposes. Performed By: [facility] [address] [place] [address] [employer] Technician: Damien Hernandez MD, PhD Performed By: #### [employer] #### [facility] [address] [place] [address] H. PYLORI BREATH TESTon H. PYLORI BREATH TEST Negative Normal NEGATIVE [facility] Comment on above: Result Comment: ANTI MICROBIALS, [...] RESULTS. Performed By: #### B REAT #### [facility] [address] [place], [place] [id number] PARATHYROID HORMONE,INTACTon 02-03-2023 PARATHYROID HORMONE,INTACT 47.2 pg/mL Normal 18.5 - 88.0 [facility] Comment on above: Performed By: #### P TH #### [facility] [address] [facility] [place] [address] Bariatric Surgery - Initialo n 02-02-2023 Bariatric [...] PROTEINon 023 C-REACTIVE PROTEIN 2.27 mg/dL Abnormal [facility] Comment on above: Result Comment: REF VALUE < 1.00 Performed By: #### F OLA2 #### [facility] [address] [place] [address] CBC AND DIFFERENTIALon 02-02 % AUTOMATED IMMATURE GRAN 0.5 % Normal 0.0 - 0.9 [facility] Comment on above: Result Comment: Merna ture Granulocyte Count (IG) includes promyelocytes, myelocytes and metamyelocytes but does not include bands. Percent differential counts (%) should be interpreted in the context of the absolute cell counts (cells/L). Performed By: #### C BCDF #### [facility] [address] [place] [address] Erythrocyte distribution width (RBC) [Ratio] 15.4 % High 11.5 - 14.5 [facility] Comment on above: Performed By: #### C BCDF #### [facility] [id number] [place] [address] Hematocrit (Bld) [Volume fraction] 42.9 % Normal 36.0 - 46.0 [facility] Comment on above: Performed By: #### C BCDF #### [facility] [id number] [place] [address] Hemoglobin (Bld) [Mass/Vol] 13.4 g/dL Normal 12.0 - 16.0 [facility] Comment on above: Performed By: #### C BCDF #### [address] [address] Lymphocytes (Bld) [#/Vol] 1.01 10*3/uL Low 1.20 - 4.80 [facility] Comment on above: Performed By: #### C BCDF #### [facility] [id number] [place] [address] 45397 Lymphocytes/100 WBC (Bld) 17.8 % Normal 13.0 - 44.0 [facility] Comment on above: Performed By: #### C BCDF #### [facility] [id number] [place] [address] 12331 MCHC (RBC) [Mass/Vol] 31.2 g/dL Low 32.0 - 36.0 [facility] Comment on above: Performed By: #### C BCDF #### [facility] [id number] [place] [address] 65472 MCV (RBC) [Entitic vol] 86 fL Normal 80 - 100 [facility] Comment on above: Performed By: #### C BCDF #### [facility] [id number] [place] [address] 92122 Monocytes (Bld) [#/Vol] 0.45 10*3/uL Normal 0.10 - 1.00 [facility] Comment on above: Performed By: #### C BCDF #### [facility] [address] [facility] [place] [address] Monocytes/100 WBC (Bld) 7.9 % Normal 2.0 - 10.0 [facility] Comment on above: Performed By: #### C BCDF #### [facility] [address] [facility] [place] [address] Neutrophils (Bld) [#/Vol] 4.20 10*3/uL Normal 1.20 - 7.70 [facility] Comment on above: Performed By: #### C BCDF #### [facility] [id number] [place] [address] [place] [address] Neutrophils/100 WBC (Bld) 73.8 % Normal 40.0 - 80.0 [facility] Comment on above: Performed By: #### C BCDF #### [facility] [id number] [place] [address] Y[address] [facility] [place] [address] Platelets (Bld) [#/Vol] 217 10*3/uL Normal 150 - 450 [facility] Comment on above: Performed By: #### C BCDF #### [facility] [id number] [place] [address] [place] [address] RBC 4.97 x10E12/L Normal 4.00 - 5.20 [facility] Comment on above: Performed By: #### C BCDF #### [facility] [address] YOLANDA [facility] [place] [address] WBC (Bld) [#/Vol] 5.7 10*3/uL Normal 4.4 - 11.3 [facility] Comment on above: Performed By: #### C BCDF #### [facility] [address] [facility] [place] [address] COAGULATION SCREENon 023 aPTT Coag (Bld) [Time] 32 s Normal 26 - 39 [facility] Comment on above: Result Comment: THE APTT IS NO LONGER USED FOR MONITORING UNFRACTIONATED HEPARIN THERAPY. FOR MONITORING HEPARIN THERAPY, USE THE HEPARIN ASSAY. Performed By: #### F OLA2 #### [facility] [address] [place] [address] PT Coag (PPP) [Time] 11.8 s Normal 9.8 - 13.4 [facility] Comment on above: Performed By: #### F OLA2 #### [facility] [address] [place] [address] PT, INR 1.0 Normal 0.9 - 1.1 [facility] Comment on above: Performed By: #### F OLA2 #### [facility] [address] [place] [address] COMPREHENSIVE PANELon 2022 Albumin [Mass/Vol] 4.2 g/dL Normal 3.4 - 5.0 [facility] Comment on above: Performed By: #### F OLA2 #### [facility] [address] [place] [address] ALP [Catalytic activity/Vol] 61 U/L Normal 33 - 110 [facility] Comment on above: Performed By: #### F OLA2 #### [facility] [address] [place] [address] ALT [Catalytic activity/Vol] 20 U/L Normal 7 - 45 [facility] Comment on above: Result Comment: Dalila ents treated with Sulfasalazine may generate falsely decreased results for ALT. Performed By: #### F OLA2 #### [facility] [address] [place] [address] Anion gap [Moles/Vol] 13 mmol/L Normal 10 - 20 [facility] Comment on above: Performed By: #### F OLA2 #### [facility] [address] [place] [address] AST [Catalytic activity/Vol] 20 U/L Normal 9 - 39 [facility] Comment on above: Performed By: #### F OLA2 #### [facility] [address] [place] [address] Bilirubin [Mass/Vol] 0.5 mg/dL Normal 0.0 - 1.2 [facility] Comment on above: Performed By: #### F OLA2 #### [facility] [address] [place] [address] Calcium [Mass/Vol] 9.6 mg/dL Normal 8.6 - 10.3 [facility] Comment on above: Performed By: #### F OLA2 #### [facility] [address] [place] [address] Chloride [Moles/Vol] 102 mmol/L Normal 98 - 107 [facility] Comment on above: Performed By: #### F OLA2 #### [facility] [address] [place] [address] Creatinine [Mass/Vol] 0.87 mg/dL Normal 0.50 - 1.05 [facility] Comment on above: Performed By: #### F OLA2 #### [facility] [address] [place] [address] GFR/1.73 sq M.predicted among non-blacks MDRD (S/P/Bld) [Vol rate/Area] 79 mL/min/{1.73_m2} Normal >90 [facility] Comment on above: Result Comment: CALC ULATIONS OF ESTIMATED GFR ARE PERFORMED USING THE 2020 CKD-EPI STUDY REFIT EQUATION WITHOUT THE RACE VARIABLE FOR THE IDMS-TRACEABLE CREATININE METHODS. https://jasn.asnjournals.org/content//ASN.70694 16058 Performed By: #### F OLA2 #### [facility] [address] [place] [address] Glucose [Mass/Vol] 81 mg/dL Normal 74 - 99 [facility] Comment on above: Performed By: #### F OLA2 #### [facility] [address] [place] [address] HCO3 (Bld) [Moles/Vol] 25 mmol/L Normal 21 - 32 [facility] Comment on above: Performed By: #### F OLA2 #### [facility] [address] [place] [address] Potassium [Moles/Vol] 4.2 mmol/L Normal 3.5 - 5.3 [facility] Comment on above: Performed By: #### F OLA2 #### [facility] [address] [place] [address] Protein [Mass/Vol] 7.4 g/dL Normal 6.4 - 8.2 [facility] Comment on above: Performed By: #### F OLA2 #### [facility] [address] [place] [address] Sodium [Moles/Vol] 136 mmol/L Normal 136 - 145 [facility] Comment on above: Performed By: #### F OLA2 #### [facility] [address] [place] [address] Urea nitrogen [Mass/Vol] 21 mg/dL Normal 6 - 23 [facility] Comment on above: Performed By: #### F OLA2 #### [facility] [address] [place] [address] DRUG SCREEN,URINE WITH REFLE X TO CONFIRMATIONon 02-02-2023 AMPHETAMINE SCREEN,U Negative Normal NEGATIVE [facility] Comment on above: Result Comment: CUTO FF LEVEL: 500 NG/ML Cross-reactivity has been reported with high concentrations of the following drugs: buproprion, chloroquine, chlorpromazine, ephedrine, mephentermine, fenfluramine, phentermine, phenylpropanolamine, pseudoephedrine, and propranolol. Performed By: #### F OLA2 #### [facility] [address] [place] [address] BARBITURATES SCREEN,U Negative Normal NEGATIVE [facility] Comment on above: Result Comment: CUTO FF LEVEL: 200 NG/ML Performed By: #### F OLA2 #### [facility] [address] [place] [address] BENZODIAZEPINES SCREEN,U Negative Normal NEGATIVE [facility] Comment on above: Result Comment: CUTO FF LEVEL: 200 NG/ML Performed By: #### F OLA2 #### [facility] [address] [place] [address] CANNABINOIDS SCREEN,U Negative Normal NEGATIVE [facility] Comment on above: Result Comment: CUTO FF LEVEL: 50 NG/ML Performed By: #### F OLA2 #### [facility] [address] [place] [address] COCAINE METABOLITE SCREEN,U Negative Normal NEGATIVE [facility] Comment on above: Result Comment: CUTO FF LEVEL: 150 NG/ML Performed By: #### F OLA2 #### [facility] [address] [place] [address] DRUG SCREEN COMMENT SEE BELOW Normal [facility] Comment on above: Result Comment: Drug screen [...] directors. Performed By: #### F OLA2 #### [facility] [address] [place] [address] FENTANYL SCREEN,URINE Negative Normal NEGATIVE [facility] Comment on above: Result Comment: CUTO FF LEVEL: 5 NG/ML Performed By: #### F OLA2 #### [facility] [address] [place] [address] METHADONE SCREEN,U Negative Normal NEGATIVE [facility] Comment on above: Result Comment: CUTO FF LEVEL: 150 NG/ML The metabolite L-sppce-fignvqxttbleli (LAAM) is not detected by this method in concentrations that would be found in the urine of patients on LAAM therapy. Performed By: #### F OLA2 #### [facility] [address] [place] [address] OPIATES SCREEN,U Negative Normal NEGATIVE [facility] Comment on above: Result Comment: CUTO FF LEVEL: 300 NG/ML The opiate screen does not detect fentanyl, meperidine, or tramadol. Oxycodone is not consistently detected (refer to Oxycodone Screen, Urine result). Performed By: #### F OLA2 #### [facility] [address] [place] [address] OXYCODONE SCREEN,U Negative Normal NEGATIVE [facility] Comment on above: Result Comment: CUTO FF LEVEL: 100 NG/ML This test will accurately detect both oxycodone and oxymorphone. Performed By: #### F OLA2 #### [facility] [address] [place] [address] PCP SCREEN,U Negative Normal NEGATIVE [facility] Comment on above: Result Comment: CUTO FF LEVEL: 25 NG/ML Cross-reactivity has been reported with dextromethorphan. Performed By: #### F OLA2 #### [facility] [address] [place] [id number] FERRITINon 02-02-2023 FERRITIN 84 ug/L Normal 8 - 150 [facility] Comment on above: Performed By: #### F OLA2 #### [facility] [address] [place] [id number] FOLATE, SERUMon 02-02-2023 Folate [Mass/Vol] 9.3 ng/mL Normal >5.0 [facility] Comment on above: Result Comment: Low <3.4 Borderline 3.4-5.0 Normal >5.0 . Biotin interference may cause falsely elevated results. Patients taking a Biotin dose of up to 5 mg/day should refrain from taking Biotin for 24 hours before sample collection. Providers may contact their local laboratory for further information. Performed By: #### F OLA2 #### [facility] [address] [place] [id number] HEMOGLOBIN A1Con 02-02-2023 Glucose [Mass/Vol] 120 mg/dL Normal [facility] Comment on above: Performed By: #### H BA1E #### [facility] [address] [place] [id number] HbA1c (Bld) [Mass fraction] 5.8 % Abnormal [facility] Comment on above: Result Comment: Diag nosis of Diabetes-Adults Non-Diabetic: < or = 5.6% Increased risk for developing diabetes: 5.7-6.4% Diagnostic of diabetes: > or = 6.5% . Monitoring of Diabetes Age (y) Therapeutic Goal (%) Adults: >18 <7.0 Pediatrics: 13-18 <7.5 7-12 <8.0 0- 6 7.5-8.5 [place] [employer]. Diabetes Care 33(S1), Nov 2009. Performed By: #### H BA1E #### [facility] [address] [place] [address] IRON + TIBCon 02-02-2023 % SATURATION 16 % Low 25 - 45 [facility] Comment on above: Performed By: #### F OLA2 #### [facility] [address] [place] [address] Iron [Mass/Vol] 64 ug/dL Normal 35 - 150 [facility] Comment on above: Performed By: #### F OLA2 #### [facility] [address] [place] [address] TIBC 400 ug/dL Normal 240 - 445 [facility] Comment on above: Performed By: #### F OLA2 #### [facility] [address] [place] [address] LIPID PANEL (CORONARY RISK 2 )on 02-02-2023 Cholesterol [Mass/Vol] 144 mg/dL Normal 0 - 199 [facility] Comment on above: Result Comment: . AGE [...] Performed By: #### F OLA2 #### [facility] [address] [place] [address] Cholesterol in HDL [Mass/Vol] 48.8 mg/dL Normal [facility] Comment on above: Result Comment: . AGE VERY LOW LOW NORMAL HIGH 0-19 Y < 35 < 40 40-45 ---- 20-24 Y ---- < 40 >45 ---- >24 Y ---- < 40 40-60 >60 . Performed By: #### F OLA2 #### [facility] [address] [place] [address] Cholesterol in LDL [Mass/Vol] 74 mg/dL Normal 0 - 99 [facility] Comment on above: Result Comment: . NEAR BORD AGE DESIRABLE OPTIMAL HIGH HIGH VERY HIGH 0-19 Y 0 - 109 --- 110-129 >/= 130 ---- 20-24 Y 0 - 119 --- 120-159 >/= 160 ---- >24 Y 0 - 99 100-129 130-159 160-189 >/=190 . Performed By: #### F OLA2 #### [facility] [address] [place] [address] Cholesterol in VLDL [Mass/Vol] 21 mg/dL Normal 0 - 40 [facility] Comment on above: Performed By: #### F OLA2 #### [facility] [address] [place] [address] Cholesterol.total/Chol esterol in HDL [Mass ratio] 3.0 {ratio} Normal [facility] Comment on above: Result Comment: REF VALUES DESIRABLE < 3.4 HIGH RISK > 5.0 Performed By: #### F OLA2 #### [facility] [address] [place] [address] Triglyceride [Mass/Vol] 107 mg/dL Normal 0 - 149 [facility] Comment on above: Result Comment: . AGE [...] dosing. Performed By: #### F OLA2 #### [facility] [address] [place] [address] THYROXINE,FREEon 02-02-2023 THYROXINE,FREE 0.88 ng/dL Normal 0.61 - 1.12 [facility] Comment on above: Result Comment: Thyr oxine Free testing is performed using different testing methodology at [facility] than at [facility]. Direct result comparisons should only [...] draw. Performed By: #### T 4FRE #### [facility] [address] [place] [address] TSHon 02-02-2023 TSH Qn 3.64 m[IU]/L Normal 0.44 - 3.98 [facility] [place] Comment on above: Result Comment: TSH testing is performed using different testing methodology at [facility] than at [facility]. Direct result comparisons should only be made within the same method. Performed By: #### T SH2 #### [facility] [address] [place] [address] VITAMIN B12on 02-02-2023 Cobalamin (Vitamin B12) [Mass/Vol] 258 pg/mL Normal 211 - 911 [facility] Comment on above: Performed By: #### V TB12 #### [facility] [address] [place] [address] VITAMIN D, 25-HYDROXYon VITAMIN D, 25-HYDROXY 27 ng/mL Abnormal [facility] Comment on above: Result Comment: . DEFICIENCY: < 20 NG/ML INSUFFICIENCY: 20-29 NG/ML SUFFICIENCY: 30-100 NG/ML THIS ASSAY ACCURATELY QUANTIFIES THE SUM OF VITAMIN D3, 25-HYDROXY AND VIT D2,25-HYDROXY. Performed By: #### F OLA2 #### [facility] [address] [place] [address] Laboratory - Chemistry and C hemistry - challengeon 09-10-2022 Albumin [Mass/Vol] 4.3 g/dL Normal 3.6 - 5.1 g/dL [facility]. Albumin/Globulin [Mass ratio] 1.3 {ratio} Normal 1.0 - 2.5 [facility]. ALP [Catalytic activity/Vol] 71 U/L Normal 37 - 153 U/L [facility] ALT [Catalytic activity/Vol] 18 U/L Normal 6 - 29 U/L [facility]. AST [Catalytic activity/Vol] 17 U/L Normal 10 - 35 U/L [facility]. Bilirubin [Mass/Vol] 0.4 mg/dL Normal 0.2 - 1 .2 mg/dL [facility]. Bilirubin Ql (U) Negative Normal [facility]; [facility] Calcium [Mass/Vol] 9.4 mg/dL Normal 8.6 - 10. 4 mg/dL [facility]. Chloride [Moles/Vol] 101 mmol/L Normal 98 - 11 0 mmol/L [facility]; [facility]. CO2 [Moles/Vol] 28 mmol/L Normal 20 - 32 mmol/L [facility].; [facility]. Cobalamin (Vitamin B12) [Mass/Vol] 296 pg/mL Normal 200 - 1100 pg/mL [facility].; [employer] [facility]. Creatinine [Mass/Vol] 0.85 mg/dL Normal 0.50 - 1.03 mg/dL [facility].; [employer] [facility]. GFR/1.73 sq M.predicted among non-blacks MDRD (S/P/Bld) [Vol rate/Area] 81 mL/min/{1.73_m2} Normal [facility].; [facility], [facility]. Glucose [Mass/Vol] 98 mg/dL Normal 65 - 99 mg/dL [facility].; [employer] [facility] Ketones Ql (U) Negative Normal [facility].; [facility]. Magnesium [Mass/Vol] 2.2 mg/dL Normal 1.5 - 2 .5 mg/dL [facility].; [employer] [facility]. pH (U) 5.5 [pH] Normal [facility].; [employer] [facility]. Potassium [Moles/Vol] 4.7 mmol/L Normal 3.5 - 5.3 mmol/L [facility].; [employer] [facility]. Protein [Mass/Vol] 7.6 g/dL Normal 6.1 - 8.1 g/dL [facility].; [employer] [facility]. Sodium [Moles/Vol] 136 mmol/L Normal 135 - 146 mmol/L [facility].; [employer] [facility]. Specific gravity (U) [Rel density] 1.020 Normal [facility]; [employer] [facility] Urea nitrogen [Mass/Vol] 18 mg/dL Normal 7 - 25 mg/dL [facility].; [employer] [facility]. Urobilinogen Qn (U) 0.2 mg/dL Normal [facility].; [employer] [facility]. Laboratory - Hematology and Cell countson 09-10-2022 Basophils (Bld) [#/Vol] 0.007 10*3/uL Normal 0 - 200 {cells/uL} [facility].; [employer] [facility]. Basophils/100 WBC (Bld) 0.1 % Normal [facility].; [employer] [facility]. Eosinophils (Bld) [#/Vol] 0 10*3/uL Abnormal 15 - 500 {cells/uL} [facility].; [employer] [facility]. Eosinophils/100 WBC (Bld) 0.0 % Normal [facility]; [employer] [facility] Erythrocyte distribution width (RBC) [Ratio] 14.4 % Normal 11.0 - 15.0 % [employer] [facility].; [email or web address] HbA1c (Bld) [Mass fraction] 5.6 % Normal [facility].; [employer] [facility]. Hematocrit (Bld) [Volume fraction] 41.8 % Normal 35.0 - 45.0 % [facility], [facility].; [facility], [facility]. Hemoglobin (Bld) [Mass/Vol] 13.4 g/dL Normal 11.7 - 15.5 g/dL [facility], [facility].; [facility], [facility]. Hemoglobin Ql (U) Trace, hemolyzed Abnormal [facility].; [facility], [facility] Lymphocytes (Bld) [#/Vol] 1.213 10*3/uL Normal 850 - 3900 {cells/uL} [facility], [facility].; [facility], [facility]. Lymphocytes/100 WBC (Bld) 18.1 % Normal [facility].; [facility], [facility]. MCH (RBC) [Entitic mass] 27.2 pg Normal 27.0 - 33.0 pg [facility], [facility].; [employer], [facility]. MCHC (RBC) [Mass/Vol] 32.1 g/dL Normal 32.0 - 36.0 g/dL [facility].; [employer], [facility]. MCV (RBC) [Entitic vol] 84.8 fL Normal 80.0 - 100.0 fL [facility], [facility].; [employer] [facility], [facility]. Monocytes (Bld) [#/Vol] 0.469 10*3/uL Normal 200 - 950 {cells/uL} [facility], [facility].; [employer], [facility]. Monocytes/100 WBC (Bld) 7.0 % Normal [facility].; [facility], [facility]. Neutrophils (Bld) [#/Vol] 5.012 10*3/uL Normal 1500 - 7800 {cells/uL} [facility], [facility].; [employer], [facility]. Neutrophils/100 WBC (Bld) 74.8 % Normal [facility].; [employer], [facility]. Platelet mean volume (Bld) [Entitic vol] 9.7 fL Normal 7.5 - 12.5 fL [facility], [facility].; [employer] Platelets (Bld) [#/Vol] 239 10*3/uL Normal 140 - 400 [facility].; [facility], [facility]. RBC (Bld) [#/Vol] 4.93 10*6/uL Normal 3.80 - 5.1 0 {Million/uL} [facility]; [employer] [facility] WBC (Bld) [#/Vol] 6.7 10*3/uL Normal 3.8 - 10.8 [facility], [facility].; [employer], Molecular Imaging Laboratory - Specimen inform ationon 09-10-2022 Appearance (U) clear Normal [facility]; [employer] [facility] Color (U) Dark Yellow Normal [facility]; [employer], [facility] Laboratory - Urinalysison Glucose Test strip (U) [Mass/Vol] Negative Normal [facility]; [employer] [facility], [facility] Leukocyte esterase Test strip Ql (U) Negative Normal [facility]; [employer], [employer] [facility] Protein Ql (U) Negative Normal [facility]; JhaGurnard Perch [employer] [facility] Laboratory - UrinalysisOrder ed By: Ashley Torres on 09-10-2022 Nitrite Ql (U) Positive Abnormal [facility]; JhaGurnard Perch [employer] [facility] No Panel Informationon 09-10 BUN/CREATININE RATIO NOT APPLICABLE Normal 6 - [facility]; [employer]haGurnard Perch [employer] [facility] CULTURE, URINE, ROUTINE SEE NOTE Abnormal [facility]; [employer]haGurnard Perch [employer] [facility] GLOBULIN 3.3 Normal 1.9 - 3.7 [facility]; [employer], [facility] TSH W/REFLEX TO FT4 3.38 {mIU/L} Normal [facility]; JhaGurnard Perch [employer] [facility] Laboratory - Chemistry and C hemistry - challengeon 02-28-2022 Calcium [Mass/Vol] 9.0 mg/dL Normal 8.6 - 10. 4 mg/dL [facility]; [employer], [facility]. Chloride [Moles/Vol] 104 mmol/L Normal 98 - 11 0 mmol/L [facility], [facility]; Kenly Chumby, [facility] CO2 [Moles/Vol] 25 mmol/L Normal 20 - 32 mmol/L [facility]; [employer] [facility]. Creatinine [Mass/Vol] 0.85 mg/dL Normal 0.50 - 1.05 mg/dL [facility].; [employer] [facility] GFR/1.73 sq M.predicted among blacks MDRD (S/P/Bld) [Vol rate/Area] 90 mL/min/{1.73_m2} Normal [facility]; [employer] [facility] Glucose [Mass/Vol] 94 mg/dL Normal 65 - 99 mg/dL [facility].; [employer] [facility] Potassium [Moles/Vol] 4.3 mmol/L Normal 3.5 - 5.3 mmol/L [facility].; [employer] [facility], [facility] Sodium [Moles/Vol] 139 mmol/L Normal 135 - 146 mmol/L [facility]; [employer] [facility] Urea nitrogen [Mass/Vol] 17 mg/dL Normal 7 - 25 mg/dL [facility]; [employer] [facility] No Panel Informationon 02-28 BUN/CREATININE RATIO NOT APPLICABLE Normal 6 - 22 [facility].; [employer] [facility] eGFR NON-AFR. BRUNEIAN 78 Normal [facility]; [employer] [facility] US SOFT TISSUEon 02-27-2022 US [...] examination to exclude a lipomatous malignancy. Normal [facility] US Unspecified body regionon 02-27-2022 IMPRESSION: 1. [...] to exclude a lipomatous malignancy. [facility] US Unspecified body regionOr dered By: Won Hagan on 02-27-2022 [facility] Work Phone: US Unspecified body regionon 02-26-2022 Radiology Study observation (narrative) [facility] Laboratory - Chemistry and C hemistry - challengeon 02-21-2022 Calcium [Mass/Vol] 9.5 mg/dL Normal 8.6 - 10. 4 mg/dL [employer] [facility], Inc.; [employer], Inc. Chloride [Moles/Vol] 102 mmol/L Normal 98 - 11 0 mmol/L [employer] [facility], Inc.; [employer], Inc. CO2 [Moles/Vol] 28 mmol/L Normal 20 - 32 mmol/L [employer], Inc.; [employer], Inc. Creatinine [Mass/Vol] 0.93 mg/dL Normal 0.50 - 1.05 mg/dL [facility]. GFR/1.73 sq M.predicted among blacks MDRD (S/P/Bld) [Vol rate/Area] 81 mL/min/{1.73_m2} Normal [facility], [facility] Glucose [Mass/Vol] 94 mg/dL Normal 65 - 99 mg/dL [facility] Natriuretic peptide B (Bld) [Mass/Vol] 84 pg/mL Normal [facility]; [facility], [facility] Potassium [Moles/Vol] 4.4 mmol/L Normal 3.5 - 5.3 mmol/L [facility]; [facility], [facility] Sodium [Moles/Vol] 140 mmol/L Normal 135 - 146 mmol/L [facility]; [facility], [facility] Urea nitrogen [Mass/Vol] 14 mg/dL Normal 7 - 25 mg/dL [facility] Laboratory - Hematology and Cell countson 02-21-2022 Basophils (Bld) [#/Vol] 0.011 10*3/uL Normal 0 - 200 {cells/uL} [facility] Basophils/100 WBC (Bld) 0.2 % Normal [facility]; [facility], [facility] Eosinophils (Bld) [#/Vol] 0 10*3/uL Abnormal 15 - 500 {cells/uL} [facility] Eosinophils/100 WBC (Bld) 0.0 % Normal [facility]; [facility] Erythrocyte distribution width (RBC) [Ratio] 15.0 % Normal 11.0 - 15.0 % [facility], [facility]. Hematocrit (Bld) [Volume fraction] 40.8 % Normal 35.0 - 45.0 % [facility], [facility].; [facility], [facility] Hemoglobin (Bld) [Mass/Vol] 12.9 g/dL Normal 11.7 - 15.5 g/dL [facility] Hospital[facility].; [facility]. Lymphocytes (Bld) [#/Vol] 1.025 10*3/uL Normal 850 - 3900 {cells/uL} [facility].; [employer] [facility]. Lymphocytes/100 WBC (Bld) 18.3 % Normal [facility].; Kenly Chumby, [facility]. MCH (RBC) [Entitic mass] 25.5 pg Abnormal 27.0 - 33.0 pg [facility].; Kenly Chumby, [facility]. MCHC (RBC) [Mass/Vol] 31.6 g/dL Abnormal 32.0 - 36.0 g/dL [facility].; Kenly Chumby, [facility]. MCV (RBC) [Entitic vol] 80.8 fL Normal 80.0 - 100.0 fL [facility].; Kenly Chumby, [facility]. Monocytes (Bld) [#/Vol] 0.42 10*3/uL Normal 200 - 950 {cells/uL} [facility] [employer] [facility].; Kenly Chumby, [facility]. Monocytes/100 WBC (Bld) 7.5 % Normal [facility].; [employer] [facility]. Neutrophils (Bld) [#/Vol] 4.144 10*3/uL Normal 1500 - 7800 {cells/uL} [employer] [facility].; Kenly Chumby, [facility]. Neutrophils/100 WBC (Bld) 74 % Normal [employer] [facility].; Jha Chumby, [employer]. Platelet mean volume (Bld) [Entitic vol] 10.0 fL Normal 7.5 - 12.5 fL [employer] [facility].; Kenly Chumby, [facility]. Platelets (Bld) [#/Vol] 227 10*3/uL Normal 140 - 400 [employer].; Kenly Chumby, [employer]. RBC (Bld) [#/Vol] 5.05 10*6/uL Normal 3.80 - 5.1 0 {Million/uL} [employer] [facility].; [employer] Chumby, Inc. WBC (Bld) [#/Vol] 5.6 10*3/uL Normal 3.8 - 10.8 [employer] [facility].; [employer] [facility]. No Panel Informationon 02-21 BUN/CREATININE RATIO NOT APPLICABLE Normal 6 - 22 [facility]; [facility] eGFR NON-AFR. BRUNEIAN 70 Normal [facility]; [facility] TSH W/REFLEX TO FT4 2.98 {mIU/L} Normal [facility]; [facility] Laboratory - Chemistry and C hemistry - challengeon 08-12-2021 Albumin [Mass/Vol] 4.0 g/dL Normal 3.6 - 5.1 g/dL [facility]; [facility] Albumin/Globulin [Mass ratio] 1.3 {ratio} Normal 1.0 - 2.5 [facility]; [facility] ALP [Catalytic activity/Vol] 71 U/L Normal 37 - 153 U/L [facility]; [facility], [facility] ALT [Catalytic activity/Vol] 15 U/L Normal 6 - 29 U/L [facility]; [facility] AST [Catalytic activity/Vol] 13 U/L Normal 10 - 35 U/L [facility]; [facility], [facility] Bilirubin [Mass/Vol] 0.3 mg/dL Normal 0.2 - 1 .2 mg/dL [facility]; [facility], [facility] Bilirubin Ql (U) Negative Normal [facility]; [facility] Calcium [Mass/Vol] 9.4 mg/dL Normal 8.6 - 10. 4 mg/dL [facility]; [facility], [facility] Chloride [Moles/Vol] 103 mmol/L Normal 98 - 11 0 mmol/L [facility]; [facility], [facility] CO2 [Moles/Vol] 25 mmol/L Normal 20 - 32 mmol/L [facility]; [facility], [facility] Creatinine [Mass/Vol] 1.05 mg/dL Normal 0.50 - 1.05 mg/dL [facility]; [facility], [facility] GFR/1.73 sq M.predicted among blacks MDRD (S/P/Bld) [Vol rate/Area] 70 mL/min/{1.73_m2} Normal [facility]; [facility] Glucose [Mass/Vol] 93 mg/dL Normal 65 - 99 mg/dL [facility]; [employer] [facility] Ketones Ql (U) Negative Normal [facility]; [facility] pH (U) 5.0 [pH] Abnormal [facility]; [facility] Potassium [Moles/Vol] 4.4 mmol/L Normal 3.5 - 5.3 mmol/L [facility]; [facility] Protein [Mass/Vol] 7.1 g/dL Normal 6.1 - 8.1 g/dL [facility]; [employer] [facility] Sodium [Moles/Vol] 138 mmol/L Normal 135 - 146 mmol/L [facility]; [employer] [facility] Specific gravity (U) [Rel density] 1.020 Normal [facility]; [employer] [facility] Urea nitrogen [Mass/Vol] 20 mg/dL Normal 7 - 25 mg/dL [facility]; [employer] [facility] Urobilinogen Qn (U) 0.2 mg/dL Normal [facility]; [employer] [facility] Laboratory - Hematology and Cell countson 08-12-2021 Basophils (Bld) [#/Vol] 0.007 10*3/uL Normal 0 - 200 {cells/uL} [facility]; [employer] [facility] Basophils/100 WBC (Bld) 0.1 % Normal [facility]; [employer] [facility] Eosinophils (Bld) [#/Vol] 0.455 10*3/uL Normal 15 - 500 {cells/uL} [facility]; [employer] [facility] Eosinophils/100 WBC (Bld) 6.6 % Normal [facility]; [employer] [facility] Erythrocyte distribution width (RBC) [Ratio] 21.9 % Abnormal 11.0 - 15.0 % [facility]; [facility]. Hematocrit (Bld) [Volume fraction] 36.5 % Normal 35.0 - 45.0 % [facility].; [facility], [facility] Hemoglobin (Bld) [Mass/Vol] 11.3 g/dL Abnormal 11.7 - 15.5 g/dL [facility], [facility]. Hemoglobin Ql (U) trace-lysed Normal [facility].; [facility], [facility] Lymphocytes (Bld) [#/Vol] 1.622 10*3/uL Normal 850 - 3900 {cells/uL} [facility].; [facility], [facility]. Lymphocytes/100 WBC (Bld) 23.5 % Normal [facility]; [facility], [facility]. MCH (RBC) [Entitic mass] 27.0 pg Normal 27.0 - 33.0 pg [facility].; [facility], [facility]. MCHC (RBC) [Mass/Vol] 31.0 g/dL Abnormal 32.0 - 36.0 g/dL [facility].; [facility], [facility]. MCV (RBC) [Entitic vol] 87.3 fL Normal 80.0 - 100.0 fL [facility].; [facility], [facility]. Monocytes (Bld) [#/Vol] 0.545 10*3/uL Normal 200 - 950 {cells/uL} [facility], [facility].; [facility], [facility]. Monocytes/100 WBC (Bld) 7.9 % Normal [facility].; [facility], [facility]. Neutrophils (Bld) [#/Vol] 4.271 10*3/uL Normal 1500 - 7800 {cells/uL} [facility].; [facility] [employer], [facility]. Neutrophils/100 WBC (Bld) 61.9 % Normal [facility].; [employer] [facility], [facility]. Platelet mean volume (Bld) [Entitic vol] 9.8 fL Normal 7.5 - 12.5 fL [facility].; Kenly Chumby, [facility]. Platelets (Bld) [#/Vol] 292 10*3/uL Normal 140 - 400 [facility].; [employer]. RBC (Bld) [#/Vol] 4.18 10*6/uL Normal 3.80 - 5.1 0 {Million/uL} [employer], [employer]. WBC (Bld) [#/Vol] 6.9 10*3/uL Normal 3.8 - 10.8 [employer].; [employer]. Laboratory - Specimen inform ationon 08-12-2021 Appearance (U) cloudy Abnormal [employer], [employer]. Color (U) dark Yellow Normal [employer].; [employer]. Laboratory - Urinalysison Glucose Test strip (U) [Mass/Vol] Negative Normal [employer], [employer]. Leukocyte esterase Test strip Ql (U) moderate Abnormal [employer].; [employer], [employer]. Nitrite Ql (U) Negative Normal [employer].; [employer]. Protein Ql (U) Negative Normal [employer].; [employer]. No Panel Informationon 08-12 BUN/CREATININE RATIO NOT APPLICABLE Normal 6 - [facility].; [employer]. CBC MORPHOLOGY SEE NOTE Normal [employer].; [employer]. Work Phone: CULTURE, URINE, ROUTINE SEE NOTE Normal [employer].; [employer]. eGFR NON-AFR. BRUNEIAN 61 Normal [facility].; [employer]. GLOBULIN 3.1 Normal 1.9 - 3.7 [employer].; [employer]. Basic Metabolic Panelon Anion gap [Moles/Vol] 6 mmol/L Normal 3-13 [facility] Comment on above: Performed By: #### H MD AVANIIFF, PHOS3, BMP3, MG3 ####[facility] [employer] [address] [address]#### OSM ####[facility] [place] [address] Calcium [Mass/Vol] 8.7 mg/dL Normal 8.4-10.4 [facility] Comment on above: Performed By: #### H AVANI, MDIFF, PHOS3, BMP3, MG3 ####[place] [address] [place] [address]#### OSM ####[facility] [place] [address] CO2 [Moles/Vol] 27 mmol/L Normal 22-30 [facility] Comment on above: Performed By: #### H EMDApril, MDIFF, PHOS3, BMP3, MG3 ####[place] [address], [place] #### OSM ####[place] [address] [place] [address] Glucose [Mass/Vol] 96 mg/dL Normal 70-100 [facility] Comment on above: Performed By: #### H AVANI, MDIFF, PHOS3, BMP3, MG3 ####[place] [address], [place] #### OSM ####[facility] [place] [address] Urea nitrogen [Mass/Vol] 53 mg/dL High 7-20 [facility] Comment on above: Performed By: #### H AVANI, TYLER, PHOS3, BMP3, MG3 ####[place] [address], [place] #### OSM ####[facility] [place] [address] Creatinine [Mass/Vol] 2.25 mg/dL High 0.52-1.25 [facility] Comment on above: Performed By: #### H EMDApril, MDIFF, PHOS3, BMP3, MG3 ####[place] [address], [place] #### OSM ####[facility] [place] [address] GFR/1.73 sq M.predicted among blacks MDRD (S/P/Bld) [Vol rate/Area] 27.9 mL/min/{1.73_m2} Abnormal >60 [facility] Comment on above: Performed By: #### H TYLER VARMA, PHOS3, BMP3, MG3 ####[employer] [place], [place] #### OSM ####[facility] [employer] [address] [place] [address] GFR/1.73 sq M.predicted among non-blacks MDRD (S/P/Bld) [Vol rate/Area] 24.0 mL/min/{1.73_m2} Abnormal >60 [facility] Comment on above: Result Comment: KDIG O guidelines provide the following GFR categories:Stage GFR(ml/min/1.73 m2) TermsG1 >=90 Normal or highG2 60-89 Mildly decreased*G3a 45-59 Mildly to moderately [id number] 30-44 Moderately to severely decreasedG4 15-29 Severely [...] #### H TYLER VARMA, PHOS3, BMP3, MG3 ####[address] [place], [place] #### OSM ####[employer] [address] [facility] [place] [address] Potassium [Moles/Vol] 4.6 mmol/L Normal 3.5-5.1 [facility] Comment on above: Performed By: #### H TYLER VARMA, PHOS3, BMP3, MG3 ####[address] [place], [place] #### OSM ####[facility] [employer] [address] [place] [address] Chloride [Moles/Vol] 105 mmol/L Normal 98-107 [facility] Comment on above: Performed By: #### H TYLER VARMA, PHOS3, BMP3, MG3 ####[facility] [employer] [id number] [place] [address]#### OSM ####[facility] [employer] [address] [place] [address] Sodium [Moles/Vol] 139 mmol/L Normal 135-145 [facility] Comment on above: Performed By: #### H TYLER VARMA, PHOS3, BMP3, MG3 ####[facility] [email or web address] [address] [place] [address]#### OSM ####[facility] [employer] [address] [place] [address] Basic Metabolic PanelOrdered By: Silver Nick on 07-03-2021 Anion gap [Moles/Vol] 6 mmol/L 3 - 13 mmol/L [facility] Work Phone: Calcium [Mass/Vol] 8.7 mg/dL 8.4 - 10. 4 mg/dL [facility] Work Phone: Chloride [Moles/Vol] 105 mmol/L 98 - 10 7 mmol/L [facility] Work Phone: CO2 [Moles/Vol] 27 mmol/L 22 - 30 mmol/L [facility] Work Phone: Creatinine [Mass/Vol] 2.25 mg/dL High 0.52 - 1.25 mg/dL [facility] Work Phone: EGFR IF NonAfrican [place] 24.0 mL/min Abnormal >60 [facility] Work Phone: GFR/1.73 sq M.predicted among blacks MDRD (S/P/Bld) [Vol rate/Area] 27.9 mL/min/{1.73_m2} Abnormal >60 [facility] Work Phone: Glucose [Mass/Vol] 96 mg/dL 70 - 100 mg/dL [facility] Work Phone: [phone] Potassium [Moles/Vol] 4.6 mmol/L 3.5 - 5.1 mmol/L [facility] Work Phone: Sodium [Moles/Vol] 139 mmol/L 135 - 145 mmol/L [employer] Work Phone: [phone] Urea nitrogen (BldV) [Mass/Vol] 53 mg/dL High 7 - 20 mg/dL [facility] Work Phone: CBC auto differentialOrdered By: Michelle Petty on 07-03-2021 Hematocrit (Bld) [Volume fraction] 28.3 % Low 35.0 - 47.0 % [employer] Work Phone: [phone] Hemoglobin.gastrointes tinal spec 1 Ql (Stl) 8.9 g/dL Low 11.7 - 16.0 g/dL [employer] Work Phone: [phone] Interpretation and review of laboratory results Abnormal [facility] Work Phone: MCH (RBC) [Entitic mass] 24.2 pg Low 26.0 - 34.0 pg [employer] Work Phone: MCHC (RBC) [Mass/Vol] 31.5 % Low 32.0 - 36.0 % [facility] Work Phone: MCV (RBC) [Entitic vol] 76.9 fL Low 79.0 - 98.0 fL [facility] Work Phone: Platelet distribution width (Bld) [Ratio] 24.5 % High 11.5 - 14.5 % [facility] Work Phone: Platelet mean volume (Bld) [Entitic vol] 6.8 fL Low 7.4 - 10.4 fL [employer] Work Phone: Platelets (Bld) [#/Vol] 229 10*3/uL 140 - 440 10*3/uL [employer] Work Phone: RBC (Bld) [#/Vol] 3.68 10*6/uL Low 3.80 - 5.2 0 10*6/uL [employer] Work Phone: WBC (Bld) [#/Vol] 5.0 10*3/uL 3.6 - 10.7 10*3/uL [facility] Work Phone: [facility] Work Phone: [facility] Work Phone: Glucose,Bedsideon 07-03-2021 Glucose [Mass/Vol] 121 mg/dL High 70-100 [facility] Comment on above: Result Comment: Test performed by glucose meter. Results may be 10%-15% lowerthan serum/plasma values. (CLIA ID [id number]) Performed By: #### B GLU ####[employer] [place] [address] Glucose [Mass/Vol] 121 mg/dL High 70-100 [facility] Comment on above: Result Comment: Test performed by glucose meter. Results may be 10%-15% lowerthan serum/plasma values. (CLIA ID [id number]) Performed By: #### B GLU ####[employer] [place] [address] Glucose [Mass/Vol] 103 mg/dL High 70-100 [facility] Comment on above: Result Comment: Test performed by glucose meter. Results may be 10%-15% lowerthan serum/plasma values. (CLIA ID [id number]) Performed By: #### B GLU ####[employer] [place] [address] Hemogram w/ Autodiffon 07-03 Erythrocyte distribution width (RBC) [Ratio] 24.5 % High 11.5-14.5 [facility] Comment on above: Performed By: #### H TYLER VARMA, PHOS3, BMP3, MG3 ####[address] [place], [place] #### OSM ####[employer] [place] [address] Hematocrit (Bld) [Volume fraction] 28.3 % Low 35.0-47.0 [facility] Comment on above: Performed By: #### H TYLER VARMA, PHOS3, BMP3, MG3 ####[address] [place], [place] #### OSM ####[facility] [place] [address] Hemoglobin (Bld) [Mass/Vol] 8.9 g/dL Low 11.7-16.0 [facility] Comment on above: Performed By: #### H AVANI, TYLER, PHOS3, BMP3, MG3 ####[address] [place], [place] #### OSM ####[facility] [place] [address] MCH (RBC) [Entitic mass] 24.2 pg Low 26.0-34.0 [facility] Comment on above: Performed By: #### H AVANI, MDIFF, PHOS3, BMP3, MG3 ####[address] #### OSM ####[address] [place] [address] MCHC 31.5 % Low 32.0-36.0 [facility] Comment on above: Performed By: #### H AVANI, IFF, PHOS3, BMP3, MG3 ####[address] [place], [place] #### OSM ####[facility] [place], [place] MCV (RBC) [Entitic vol] 76.9 fL Low 79.0-98.0 [facility] Comment on above: Performed By: #### H AVANI, MDIFF, PHOS3, BMP3, MG3 ####[address] #### OSM ####[facility] [place], [place] Platelet mean volume (Bld) [Entitic vol] 6.8 fL Low 7.4-10.4 [facility] Comment on above: Performed By: #### H AVANI, MDIFF, PHOS3, BMP3, MG3 ####[facility] [place], [place] #### OSM ####[facility] [place] [address] Platelets (Bld) [#/Vol] 229 10*3/uL Normal 140-440 [facility] Comment on above: Performed By: #### H TYLER VARMA, PHOS3, BMP3, MG3 ####[facility] [facility], [place] #### OSM ####[facility] [place] [address] RBC (Bld) [#/Vol] 3.68 10*6/uL Low 3.80-5.20 [facility] Comment on above: Performed By: #### H TYLER VARMA, PHOS3, BMP3, MG3 ####[address] [place], [place] #### OSM ####[address] [place] [address] WBC (Bld) [#/Vol] 5.0 10*3/uL Normal 3.6-10.7 [facility] Comment on above: Performed By: #### H TYLER VARMA, PHOS3, BMP3, MG3 ####[address] [place], [place] #### OSM ####[facility] [place] [address] Magnesiumon 07-03-2021 Magnesium [Mass/Vol] 1.6 mg/dL Normal 1.6-2.3 [facility] Comment on above: Performed By: #### H TYLER VARMA, PHOS3, BMP3, MG3 ####[address] [facility], [place] #### OSM ####[facility] [place] [address] MagnesiumOrdered By: Michelle lauren on 07-03-2021 Magnesium [Mass/Vol] 1.6 mg/dL 1.6 - 2 .3 mg/dL [facility] Work Phone: Manual Diffon 07-03-2021 Abs Baso Cnt 0.0 10*3/uL Normal 0.0-0.2 [facility] Comment on above: Performed By: #### H EMDF, MDIFF, PHOS3, BMP3, MG3 ####[address] [place], [place] #### OSM ####[facility] [address] [place] [address] Abs Eosin Cnt 0.2 10*3/uL Normal 0.0-0.5 [facility] Comment on above: Performed By: #### H EMDF, MDIFF, PHOS3, BMP3, MG3 ####[facility] [place], [place] #### OSM ####[facility] [address] [place] [address] Abs Lymph Cnt 1.2 10*3/uL Normal 1.1-4.5 [facility] Comment on above: Performed By: #### H EMDF, MDIFF, PHOS3, BMP3, MG3 ####[facility] [place] [address] #### OSM ####[facility] [address] [place] [address] Abs Monocyte Cnt 0.6 10*3/uL Normal 0.2-1.1 [facility] Comment on above: Performed By: #### H EMDF, MDIFF, PHOS3, BMP3, MG3 ####[address] [place], [place] #### OSM ####[facility] [address] [place] [address] Abs Neutrophile Cnt 3.1 10*3/uL Normal 2.2-8.2 [facility] Comment on above: Performed By: #### H EMDF, MDIFF, PHOS3, BMP3, MG3 ####[employer] [address] [place], [place] #### OSM ####[facility] [address] [place] [address] Bands 7 % High 0-3 [facility] Comment on above: Performed By: #### H EMDF, MDIFF, PHOS3, BMP3, MG3 ####[facility] [address] [place] [address]#### OSM ####[facility] [address] [place] [address] Basophils 0 % Normal 0-2 [facility] Comment on above: Performed By: #### H EMDF, MDIFF, PHOS3, BMP3, MG3 ####[facility] [address] [place] [address]#### OSM ####[facility] [address] [place] [address] Cells counted 100 Normal [facility] Comment on above: Performed By: #### H EMDF, MDIFF, PHOS3, BMP3, MG3 ####[facility] [address], [place] #### OSM ####[facility] [place] [address] Eosinophils 4 % Normal 1-6 [facility] Comment on above: Performed By: #### H EMDF, MDIFF, PHOS3, BMP3, MG3 ####[facility] [address] [facility] [place] #### OSM ####[facility] [address] [place] [address] Lymphocytes 23 % Normal 20-40 [facility] Comment on above: Performed By: #### H EMDF, MDIFF, PHOS3, BMP3, MG3 ####[facility] [address] [place] [address]#### OSM ####[facility] [address] [place] [address] Monocytes 11 % High 2-10 [facility] Comment on above: Performed By: #### H EMDF, MDIFF, PHOS3, BMP3, MG3 ####[facility] [address] [place] [address]#### OSM ####[facility] [address] [place] [address] RBC Morphology See Prev Normal [facility] Comment on above: Performed By: #### H TYLER VARMA, PHOS3, BMP3, MG3 ####[facility] [address] [place] [address]#### OSM ####[facility] [address] [place] [address] Seg Neutrophils 55 % Normal 40-80 [facility] Comment on above: Performed By: #### H TYLER VARMA, PHOS3, BMP3, MG3 ####[facility] [address] [place] [address]#### OSM ####[facility] [address] [place] [address] Manual DifferentialOrdered B y: Michelle Laquita on 07-03-2021 Absolute Baso # 0.0 10*3/uL 0.0 - 0.2 10*3/uL [facility] Work Phone: [phone] Absolute Eos # 0.2 10*3/uL 0.0 - 0.5 10*3/uL [facility] Work Phone: ) [phone] Absolute Lymph # 1.2 10*3/uL 1.1 - 4.5 10*3/uL [facility] Work Phone: ) [phone] Absolute [place] # 0.6 10*3/uL 0.2 - 1.1 10*3/uL [...] 20 - 40 % [facility] Work Phone: [phone] Monocytes/100 WBC (Bld) 11 % High 2 - 10 % [facility] Work Phone: [phone] RBC (Bld) [#/Vol] See Prev [facility] Work Phone: [phone] Seg Neutrophils 55 % 40 - 80 % [facility] Work Phone: [phone] TOTAL CELLS COUNTED 100 [facility] Work Phone: [phone] [facility] Work Phone: [phone] [facility] Work Phone: [phone] Panel InformationOrdered By: Michelle Petty on 07-03-2021 Interpretation and review of laboratory results Abnormal [facility] Work Phone: [phone] [facility] Work Phone: [phone] [facility] Work Phone: [phone] OsmolalityOrdered By: Lindsey Joyce on 07-03-2021 Interpretation and review of laboratory results Abnormal [facility] Work Phone: [phone] Serum Osmolality 308 mosm/kg High 280 - 300 mosm/kg [facility] Work Phone: [phone] [facility] Work Phone: [phone] [facility] Work Phone: [phone] Osmolality,Serumon 1 Osmolality,Serum 308 mosm/kg High 280-300 [facility]m [facility] Comment on above: Performed By: #### H AVANI, IFF, PHOS3, BMP3, MG3 ####[facility] [address] [place] [address]#### OSM ####[employer] [address] [place] [address] POCT GlucoseOrdered By: Jessica Soni on 07-03-2021 Glucose [Mass/Vol] 121 mg/dL High 70 - 100 mg/dL [facility] Work Phone: [phone] Interpretation and review of laboratory results Abnormal [facility] Work Phone: [phone] [facility] Work Phone: [phone] [facility] Work Phone: [phone] Glucose [Mass/Vol] 121 mg/dL High 70 - 100 mg/dL [facility] Work Phone: [phone] Interpretation and review of laboratory results Abnormal [facility] Work Phone: [phone] [facility] Work Phone: [phone] [facility] Work Phone: [phone] Glucose [Mass/Vol] 103 mg/dL High 70 - 100 mg/dL [facility] Work Phone: [phone] Interpretation and review of laboratory results Abnormal [facility] Work Phone: [phone] [facility] Work Phone: [phone] [facility] Work Phone: [phone] Phosphoruson 07-03-2021 Phosphate [Mass/Vol] 6.3 mg/dL High 2.5-4.5 [facility] Comment on above: Performed By: #### H EMDF, MDIFF, PHOS3, BMP3, MG3 ####[facility] [employer] [address] [place] [address]#### OSM ####[facility] [employer] [address] [place] [address] PhosphorusOrdered By: Michelle pearson on 07-03-2021 Phosphate [Mass/Vol] 6.3 mg/dL High 2.5 - 4 .5 mg/dL [facility] Work Phone: Basic Metabolic Panelon Calcium [Mass/Vol] 8.8 mg/dL Normal 8.4-10.4 [facility] Comment on above: Performed By: #### O SM ####[facility] [employer] [address] [place] [address]#### LFT3, HEMDF, MDIFF, BMP3, MG3, PHOS3 ####[facility] IDMission[address] [place] [address] Anion gap [Moles/Vol] 6 mmol/L Normal 3-13 [facility] Comment on above: Performed By: #### O SM ####[facility] [employer] [address] [place] [address]#### LFT3, HEMDF, MDIFF, BMP3, MG3, PHOS3 ####[facility] [place] [address] CO2 [Moles/Vol] 26 mmol/L Normal 22-30 [facility] Comment on above: Performed By: #### O SM ####[facility] [employer] [address] [place] [address]#### LFT3, HEMDF, MDIFF, BMP3, MG3, PHOS3 ####[address] [place] [address] Creatinine [Mass/Vol] 2.26 mg/dL High 0.52-1.25 [facility] Comment on above: Performed By: #### O SM ####[facility] [employer] [place] [address] [place] [address]#### LFT3, HEMDF, MDIFF, BMP3, MG3, PHOS3 ####[facility] [employer] [address] [place] [address] GFR/1.73 sq M.predicted among blacks MDRD (S/P/Bld) [Vol rate/Area] 27.7 mL/min/{1.73_m2} Abnormal >60 [facility] Comment on above: Performed By: #### O SM ####[facility] [employer] [address] [place] [address]#### LFT3, HEMDF, MDIFF, BMP3, MG3, PHOS3 ####[facility] [employer] [address] [place] [address] GFR/1.73 sq M.predicted among non-blacks MDRD (S/P/Bld) [Vol rate/Area] 23.9 mL/min/{1.73_m2} Abnormal >60 [facility] Comment on above: Result Comment: KDIG O guidelines provide the following GFR categories:Stage GFR(ml/min/1.73 m2) TermsG1 >=90 Normal or highG2 60-89 Mildly decreased*G3a 45-59 Mildly to moderately dlrtkxmzaP0q 30-44 Moderately to severely decreasedG4 15-29 Severely [...] creatinine secretion. Performed By: #### O SM ####[address] [place]west [place] [address]#### LFT3, HEMDF, MDIFF, BMP3, MG3, PHOS3 ####[address] [place] [address] Glucose [Mass/Vol] 95 mg/dL Normal 70-100 [facility] Comment on above: Performed By: #### O SM ####[address] [place] [facility] [place] [address]#### LFT3, HEMDF, MDIFF, BMP3, MG3, PHOS3 ####[address] [place] [address] Urea nitrogen [Mass/Vol] 60 mg/dL High 7-20 [facility] Comment on above: Performed By: #### O SM ####[address] [place] [facility] [place] [address]#### LFT3, HEMDF, MDIFF, BMP3, MG3, PHOS3 ####[address] [place] [address] Potassium [Moles/Vol] 5.1 mmol/L Normal 3.5-5.1 [facility] Comment on above: Performed By: #### O SM ####[address] [place] [address]#### LFT3, HEMDF, MDIFF, BMP3, MG3, PHOS3 ####[address] [facility] [place] [address] Sodium [Moles/Vol] 139 mmol/L Normal 135-145 [facility] Comment on above: Performed By: #### O SM ####[address] [place] [address]#### LFT3, HEMDF, MDIFF, BMP3, MG3, PHOS3 ####[employer] [address] [place] [address] Chloride [Moles/Vol] 107 mmol/L Normal 98-107 [facility] [employer] System Comment on above: Performed By: #### O SM ####[employer] [address] [place] [address]#### LFT3, HEMDF, MDIFF, BMP3, MG3, PHOS3 ####[employer] [address]Mission[address] [place] [address] Basic Metabolic PanelOrdered By: Silver Nick on 07-02-2021 Anion gap [Moles/Vol] 6 mmol/L 3 - 13 mmol/L [facility] Work Phone: Calcium [Mass/Vol] 8.8 mg/dL 8.4 - 10. 4 mg/dL [facility] Work Phone: [phone] Chloride [Moles/Vol] 107 mmol/L 98 - 10 7 mmol/L [facility] Work Phone: [phone] CO2 [Moles/Vol] 26 mmol/L 22 - 30 mmol/L [facility] Work Phone: Creatinine [Mass/Vol] 2.26 mg/dL High 0.52 - 1.25 mg/dL [facility] Work Phone: EGFR IF NonAfrican [place] 23.9 mL/min Abnormal >60 [facility] Work Phone: [...] 60 mg/dL High 7 - 20 mg/dL [facility] Work Phone: [phone] CBC auto differentialOrdered By: Michelle Petty on 07-02-2021 Hematocrit (Bld) [Volume fraction] 27.4 % Low 35.0 - 47.0 % [facility] Work Phone: [phone] Hemoglobin.gastrointes tinal spec 1 Ql (Stl) 8.7 g/dL Low 11.7 - 16.0 g/dL [facility] Work Phone: [phone] Interpretation and review of laboratory results Abnormal [facility] Work Phone: [phone] MCH (RBC) [Entitic mass] 23.8 pg Low 26.0 - 34.0 pg [facility] Work Phone: [phone] MCHC (RBC) [Mass/Vol] 31.7 % Low 32.0 - 36.0 % [facility] Work Phone: [phone] MCV (RBC) [Entitic vol] 75.1 fL Low 79.0 - 98.0 fL [facility] Work Phone: [phone] Platelet distribution width (Bld) [Ratio] 24.8 % High 11.5 - 14.5 % [facility] Work Phone: [phone] Platelet mean volume (Bld) [Entitic vol] 7.3 fL Low 7.4 - 10.4 fL [facility] Work Phone: [phone] Platelets (Bld) [#/Vol] 224 10*3/uL 140 - 440 10*3/uL [facility] Work Phone: [phone] RBC (Bld) [#/Vol] 3.64 10*6/uL Low 3.80 - 5.2 0 10*6/uL [facility] Work Phone: [phone] WBC (Bld) [#/Vol] 4.9 10*3/uL 3.6 - 10.7 10*3/uL [facility] Work Phone: [phone] [facility] Work Phone: [phone] [facility] Work Phone: [phone] Glucose,Bedsideon 07-02-2021 Glucose [Mass/Vol] 164 mg/dL High 70-100 [facility] Comment on above: Result Comment: Test performed by glucose meter. Results may be 10%-15% lowerthan serum/plasma values. (CLIA ID [id number]) Performed By: #### B GLU ####[facility] [place], [place] Glucose [Mass/Vol] 128 mg/dL High 70-100 [facility] Comment on above: Result Comment: Test performed by glucose meter. Results may be 10%-15% lowerthan serum/plasma values. (CLIA ID [id number]) Performed By: #### B GLU ####[employer] [place], [place] Glucose [Mass/Vol] 139 mg/dL High 70-100 [facility] Comment on above: Result Comment: Test performed by glucose meter. Results may be 10%-15% lowerthan serum/plasma values. (CLIA ID [id number]) Performed By: #### B GLU ####[facility] [place], [place] Glucose [Mass/Vol] 108 mg/dL High 70-100 [facility] Comment on above: Result Comment: Test performed by glucose meter. Results may be 10%-15% lowerthan serum/plasma values. (CLIA ID [id number]) Performed By: #### B GLU ####[employer] [place], [place] Hemogram w/ Autodiffon 07-02 Erythrocyte distribution width (RBC) [Ratio] 24.8 % High 11.5-14.5 [facility] Comment on above: Performed By: #### O SM ####[employer] [place] [address]#### LFT3, HEMDF, MDIFF, BMP3, MG3, PHOS3 ####[employer] [place], [place] Hematocrit (Bld) [Volume fraction] 27.4 % Low 35.0-47.0 [facility] Comment on above: Performed By: #### O SM ####[address] [place], [place] #### LFT3, HEMDF, MDIFF, BMP3, MG3, PHOS3 ####[address] [place], [place] Hemoglobin (Bld) [Mass/Vol] 8.7 g/dL Low 11.7-16.0 [facility] Comment on above: Performed By: #### O SM ####[address] [place], [place] #### LFT3, HEMDF, MDIFF, BMP3, MG3, PHOS3 ####[address] [place], [place] MCH (RBC) [Entitic mass] 23.8 pg Low 26.0-34.0 [facility] Comment on above: Performed By: #### O SM ####[address] [place], [place] #### LFT3, HEMDF, MDIFF, BMP3, MG3, PHOS3 ####[address] [place], [place] MCHC 31.7 % Low 32.0-36.0 [facility] Comment on above: Performed By: #### O SM ####[address] [place], [place] #### LFT3, HEMDF, MDIFF, BMP3, MG3, PHOS3 ####[address] [place], [place] MCV (RBC) [Entitic vol] 75.1 fL Low 79.0-98.0 [facility] Comment on above: Performed By: #### O SM ####[address] [place], [place] #### LFT3, HEMDF, MDIFF, BMP3, MG3, PHOS3 ####[address] [place], [place] Platelet mean volume (Bld) [Entitic vol] 7.3 fL Low 7.4-10.4 [facility] Comment on above: Performed By: #### O SM ####[address] [place] [address]#### LFT3, HEMDF, MDIFF, BMP3, MG3, PHOS3 ####[address] [place], [place] Platelets (Bld) [#/Vol] 224 10*3/uL Normal 140-440 [facility] Comment on above: Performed By: #### O SM ####[address] [place] [address]#### LFT3, HEMDF, MDIFF, BMP3, MG3, PHOS3 ####[address] [place], [place] RBC (Bld) [#/Vol] 3.64 10*6/uL Low 3.80-5.20 [facility] Comment on above: Performed By: #### O SM ####[address] [place], [place] #### LFT3, HEMDF, MDIFF, BMP3, MG3, PHOS3 ####[address] [place], [place] WBC (Bld) [#/Vol] 4.9 10*3/uL Normal 3.6-10.7 [facility] Comment on above: Performed By: #### O SM ####[address] [place], [place] #### LFT3, HEMDF, MDIFF, BMP3, MG3, PHOS3 ####[address] [facility] [place] Hepatic Functionon 1 ALP [Catalytic activity/Vol] 70 U/L Normal 38-126 [facility] Comment on above: Performed By: #### O SM ####[address] [place] [address]#### LFT3, HEMDF, MDIFF, BMP3, MG3, PHOS3 ####[address] [facility] [place] ALT [Catalytic activity/Vol] 23 U/L Normal 0-34 [facility] Comment on above: Result Comment: The ALT test is performed by an updated assay method.Please note that the reference intervals have beenchanged and are now sex specific. Performed By: #### O SM ####[address] [place] [address]#### LFT3, HEMDF, MDIFF, BMP3, MG3, PHOS3 ####[address] [facility] [place] AST [Catalytic activity/Vol] 25 U/L Normal 15-46 [facility] Comment on above: Performed By: #### O SM ####[address] [facility] [place] [address]#### LFT3, HEMDF, MDIFF, BMP3, MG3, PHOS3 ####[address] Bilirubin [Mass/Vol] 0.5 mg/dL Normal 0.2-1.3 [facility] Comment on above: Performed By: #### O SM ####[address] [facility] [place] [address]#### LFT3, HEMDF, MDIFF, BMP3, MG3, PHOS3 ####[address] [place], [place] Bilirubin.indirect [Mass/Vol] 0.0 mg/dL Normal 0.0-0.3 [facility] Comment on above: Performed By: #### O SM ####[address] [place] [address]#### LFT3, HEMDF, MDIFF, BMP3, MG3, PHOS3 ####[address], [place] Protein [Mass/Vol] 6.1 g/dL Low 6.3-8.2 [facility] Comment on above: Performed By: #### O SM ####[address] [facility] [place] [address]#### LFT3, HEMDF, MDIFF, BMP3, MG3, PHOS3 ####[address] [place] [address] Albumin [Mass/Vol] 2.8 g/dL Low 3.5-5.0 [facility] Comment on above: Performed By: #### O SM ####[facility] [employer] [address] [place] [address]#### LFT3, HEMDF, MDIFF, BMP3, MG3, PHOS3 ####[facility] [employer] [address] [place], [place] Hepatic Function PanelOrdere d By: Tello Sterling on 07-02-2021 Albumin [Mass/Vol] 2.8 g/dL Low 3.5 - 5.0 g/dL [facility] Work Phone: ALP (Bld) [Catalytic activity/Vol] 70 U/L 38 - 126 U/L [facility] Work Phone: ALT [Catalytic activity/Vol] 23 U/L 0 - 34 U/L [facility] Work Phone: AST [Catalytic activity/Vol] 25 U/L 15 - 46 U/L [facility] Work Phone: Bilirubin [Mass/Vol] 0.5 mg/dL 0.2 - 1 .3 mg/dL [facility] Work Phone: Bilirubin.indirect [Mass/Vol] 0.0 mg/dL 0.0 - 0.3 mg/dL [facility] Work Phone: Free PSA/Total PSA [Mass fraction] 6.1 g/dL Low 6.3 - 8.2 g/dL [facility] Work Phone: Magnesiumon 07-02-2021 Magnesium [Mass/Vol] 1.7 mg/dL Normal 1.6-2.3 [facility] [employer] System Comment on above: Performed By: #### O SM ####[facility] [employer] [address] [place] [address]#### LFT3, HEMDF, MDIFF, BMP3, MG3, PHOS3 ####[facility] [employer] [address] [place] [address] MagnesiumOrdered By: Michelle lauren on 07-02-2021 Magnesium [Mass/Vol] 1.7 mg/dL 1.6 - 2 .3 mg/dL [facility] Work Phone: Manual Diffon 07-02-2021 Abs Baso Cnt 0.0 10*3/uL Normal 0.0-0.2 [facility] Comment on above: Performed By: #### O SM ####[employer] [place] [address] [address] [place] [id number]#### LFT3, HEMDF, MDIFF, BMP3, MG3, PHOS3 ####[employer] [place], [place] Abs Eosin Cnt 0.2 10*3/uL Normal 0.0-0.5 [facility] Comment on above: Performed By: #### O SM ####[employer] [place] [address] [address] [place] [id number]#### LFT3, HEMDF, MDIFF, BMP3, MG3, PHOS3 ####[employer] [place], [place] Abs Lymph Cnt 0.8 10*3/uL Low 1.1-4.5 [facility] Comment on above: Performed By: #### O SM ####[employer] [place] [address]. [place] [address]#### LFT3, HEMDF, MDIFF, BMP3, MG3, PHOS3 ####[employer] [place] [address] Abs Monocyte Cnt 0.3 10*3/uL Normal 0.2-1.1 [facility] Comment on above: Performed By: #### O SM ####[employer] [place] [address] [place] [address]#### LFT3, HEMDF, MDIFF, BMP3, MG3, PHOS3 ####[employer] [place], [place] Abs Neutrophile Cnt 3.5 10*3/uL Normal 2.2-8.2 [facility] Comment on above: Performed By: #### O SM ####[employer] [place] [address]. [place] [address]#### LFT3, HEMDF, MDIFF, BMP3, MG3, PHOS3 ####[facility] [address] [facility] [place] [place] Bands 6 % High 0-3 [facility] Comment on above: Performed By: #### O SM ####[address] [place] [place] [address]#### LFT3, HEMDF, MDIFF, BMP3, MG3, PHOS3 ####[facility] [address] [facility] [place] Basophils 1 % Normal 0-2 [facility] Comment on above: Performed By: #### O SM ####[address] [place] [place] [address]#### LFT3, HEMDF, MDIFF, BMP3, MG3, PHOS3 ####[place] [address] [facility], [place] Cells counted 100 Normal [facility] Comment on above: Performed By: #### O SM ####[address] [facility] [place] [address]#### LFT3, HEMDF, MDIFF, BMP3, MG3, PHOS3 ####[facility] [facility] [place] Eosinophils 4 % Normal 1-6 [facility] Comment on above: Performed By: #### O SM ####[address] [facility] [place] [address]#### LFT3, HEMDF, MDIFF, BMP3, MG3, PHOS3 ####[facility] [id number] [facility] [place] Lymphocytes 17 % Low 20-40 [facility] Comment on above: Performed By: #### O SM ####[place] [address] [place] [place] [address]#### LFT3, HEMDF, MDIFF, BMP3, MG3, PHOS3 ####[facility] [address] [facility] [place] Monocytes 7 % Normal 2-10 [facility] Comment on above: Performed By: #### O SM ####[facility] [place] [address]#### LFT3, HEMDF, MDIFF, BMP3, MG3, PHOS3 ####[facility] [place] [address] RBC Morphology See Prev Normal [facility] Comment on above: Performed By: #### O SM ####[facility] [place] [address]#### LFT3, HEMDF, MDIFF, BMP3, MG3, PHOS3 ####[facility] [place] [address] Seg Neutrophils 65 % Normal 40-80 [facility] Comment on above: Performed By: #### O SM ####[place] [address] [place] [address]#### LFT3, HEMDF, MDIFF, BMP3, MG3, PHOS3 ####[facility] [place] [address] Manual DifferentialOrdered B y: Michelle Laquita on 07-02-2021 Absolute Baso # 0.0 10*3/uL 0.0 - 0.2 10*3/uL [facility] Work Phone: [phone] Absolute Eos # 0.2 10*3/uL 0.0 - 0.5 10*3/uL [facility] Work Phone: [phone] Absolute Lymph # 0.8 10*3/uL Low 1.1 - 4.5 10*3/uL [facility] Work Phone: 22 Absolute [place] # 0.3 10*3/uL 0.2 - 1.1 10*3/uL [facility] Work Phone: [phone] Absolute Neut # 3.5 10*3/uL 2.2 - 8.2 10*3/uL [facility] Work Phone: 22 Bands 6 % High 0 - 3 % [facility] Work Phone: [phone] Basophils/100 WBC (Bld) 1 % 0 - 2 % [facility] Work Phone: [phone] Eosinophils/100 WBC (Bld) 4 % 1 - 6 % [facility] Work Phone: [phone] Interpretation and review of laboratory results Abnormal [facility] Work Phone: [phone] Lymphocytes/100 WBC (Bld) 17 % Low 20 - 40 % [facility] Work Phone: [phone] Monocytes/100 WBC (Bld) 7 % 2 - 10 % [facility] Work Phone: [phone] RBC (Bld) [#/Vol] See Prev [facility] Work Phone: [phone] Neutrophils 65 % 40 - 80 % [facility] Work Phone: [phone] TOTAL CELLS COUNTED 100 [facility] Work Phone: [phone] [facility] Work Phone: [phone] [facility] Work Phone: [phone] Panel InformationOrdered By: Michelle Petty on 07-02-2021 Interpretation and review of laboratory results Abnormal [facility] Work Phone: [phone] [facility] Work Phone: [phone] [facility] Work Phone: [phone] OsmolalityOrdered By: Lindsey Joyce on 07-02-2021 Interpretation and review of laboratory results Abnormal [facility] Work Phone: [phone] Serum Osmolality 313 mosm/kg High 280 - 300 mosm/kg [facility] Work Phone: [phone] [facility] Work Phone: [phone] [facility] Work Phone: Osmolality,Serumon 1 Osmolality,Serum 313 mosm/kg High 280-300 [facility] Comment on above: Performed By: #### O SM ####[address] [place] [address]#### LFT3, HEMDF, MDIFF, BMP3, MG3, PHOS3 ####[facility] [place] [address] POCT GlucoseOrdered By: Jessica Soni on 07-02-2021 Glucose [Mass/Vol] 164 mg/dL High 70 - 100 mg/dL [facility] Work Phone: Interpretation and review of laboratory results Abnormal [facility] Work Phone: [phone] [facility] Work Phone: [phone] [facility] Work Phone: [phone] Glucose [Mass/Vol] 128 mg/dL High 70 - 100 mg/dL [facility] Work Phone: [phone] Interpretation and review of laboratory results Abnormal [facility] Work Phone: [phone] [facility] Work Phone: [phone] [facility] Work Phone: [phone] Glucose [Mass/Vol] 139 mg/dL High 70 - 100 mg/dL [facility] Work Phone: [phone] Interpretation and review of laboratory results Abnormal [facility] Work Phone: [phone] [facility] Work Phone: [phone] [facility] Work Phone: [phone] Glucose [Mass/Vol] 108 mg/dL High 70 - 100 mg/dL [facility] Work Phone: [phone] Interpretation and review of laboratory results Abnormal [facility] Work Phone: [phone] [facility] Work Phone: [phone] [facility] Work Phone: [phone] Phosphoruson 07-02-2021 Phosphate [Mass/Vol] 6.1 mg/dL High 2.5-4.5 [facility] Comment on above: Performed By: #### O SM ####[facility] [employer] [address] [place] [address]#### LFT3, HEMDF, MDIFF, BMP3, MG3, PHOS3 ####[facility] [employer] [address] [place] [address] PhosphorusOrdered By: Michelle pearson on 07-02-2021 Phosphate [Mass/Vol] 6.1 mg/dL High 2.5 - 4 .5 mg/dL [facility] Work Phone: Basic Metabolic Panelon Calcium [Mass/Vol] 8.4 mg/dL Normal 8.4-10.4 [facility] Comment on above: Performed By: #### P HOS3, MDIFF, MG3, HEMDF, BMP3 ####[facility] [facility] [place] [address]#### OSM ####[facility] [place] [facility] [place] [address] Anion gap [Moles/Vol] 4 mmol/L Normal 3-13 [facility] Comment on above: Performed By: #### P HOS3, MDIFF, MG3, HEMDF, BMP3 ####[place] [address] [place] [address]#### OSM ####[facility] [place] [facility] [place] [address] CO2 [Moles/Vol] 24 mmol/L Normal 22-30 [facility] Comment on above: Performed By: #### P HOS3, MDIFF, MG3, HEMDF, BMP3 ####[address], [place] #### OSM ####[address] [place] [facility] [place] [address] Creatinine [Mass/Vol] 2.36 mg/dL High 0.52-1.25 [facility] Comment on above: Performed By: #### P HOS3, MDIFF, MG3, HEMDF, BMP3 ####[place] [address] [facility], [place] #### OSM ####[place] [address] [place] [place] [address] GFR/1.73 sq M.predicted among blacks MDRD (S/P/Bld) [Vol rate/Area] 26.3 mL/min/{1.73_m2} Abnormal >60 [facility] Comment on above: Performed By: #### P HOS3, MDIFF, MG3, HEMDF, BMP3 ####[place] [address] [facility] [place] [place] [address]#### OSM ####[place] [address] [place] [place] [address] GFR/1.73 sq M.predicted among non-blacks MDRD (S/P/Bld) [Vol rate/Area] 22.7 mL/min/{1.73_m2} Abnormal >60 [facility] Comment on above: Result Comment: KDIG O guidelines provide the following GFR categories:Stage GFR(ml/min/1.73 m2) TermsG1 >=90 Normal or highG2 60-89 Mildly decreased*G3a 45-59 Mildly to moderately [id number] 30-44 Moderately to severely decreasedG4 15-29 Severely [...] #### P HOS3, MDIFF, MG3, HEMDF, BMP3 ####[facility] [employer] [address] [place], [place] #### OSM ####[facility] [place] [address] Glucose [Mass/Vol] 109 mg/dL High 70-100 [facility] Comment on above: Performed By: #### P HAM3, MDIFF, MG3, HEMDF, BMP3 ####[facility] [employer] [address] [place] [address]#### OSM ####[facility] [place] [address] Urea nitrogen [Mass/Vol] 61 mg/dL High 7-20 [facility] Comment on above: Performed By: #### P HOS3, MDIFF, MG3, HEMDF, BMP3 ####[facility] [employer] [address] [place] [address]#### OSM ####[facility] [place] [address] Basic Metabolic PanelOrdered By: Silver Nick on 07-01-2021 Chloride [Moles/Vol] 106 mmol/L Normal 98-107 [facility] Work Phone: Comment on above: Performed By: #### P HOS3, MDIFF, MG3, HEMDF, BMP3 ####[address] [place] [address]#### OSM ####[facility] [place] [facility] [place] [address] Potassium [Moles/Vol] 5.0 mmol/L Normal 3.5-5.1 [facility] Work Phone: Comment on above: Performed By: #### P HOS3, MDIFF, MG3, HEMDF, BMP3 ####[address] [place] [address]#### OSM ####[facility] [place] [place] [address] Sodium [Moles/Vol] 135 mmol/L Normal 135-145 [facility] Work Phone: Comment on above: Performed By: #### P HOS3, MDIFF, MG3, HEMDF, BMP3 ####[address] [place] [address]#### OSM ####[facility] [place] [facility] [place] [address] Anion gap [Moles/Vol] 4 mmol/L 3 - 13 mmol/L [facility] Work Phone: Calcium [Mass/Vol] 8.4 mg/dL 8.4 - 10. 4 mg/dL [facility] Work Phone: CO2 [Moles/Vol] 24 mmol/L 22 - 30 mmol/L [facility] Work Phone: Creatinine [Mass/Vol] 2.36 mg/dL High 0.52 - 1.25 mg/dL [facility] Work Phone: EGFR IF NonAfrican [place] 22.7 mL/min Abnormal >60 [facility] Work Phone: 22 GFR/1.73 sq M.predicted among blacks MDRD (S/P/Bld) [Vol rate/Area] 26.3 mL/min/{1.73_m2} Abnormal >60 [facility] Work Phone: [phone] Glucose [Mass/Vol] 109 mg/dL High 70 - 100 mg/dL [facility] Work Phone: Urea nitrogen (BldV) [Mass/Vol] 61 mg/dL High 7 - 20 mg/dL [facility] Work Phone: CBC auto differentialOrdered By: Michelle Petty on 07-01-2021 Hematocrit (Bld) [Volume fraction] 27.4 % Low 35.0 - 47.0 % [facility] Work Phone: Hemoglobin.gastrointes tinal spec 1 Ql (Stl) 8.8 g/dL Low 11.7 - 16.0 g/dL [facility] Work Phone: Interpretation and review of laboratory results Abnormal [employer] Work Phone: MCH (RBC) [Entitic mass] 24.0 pg Low 26.0 - 34.0 pg [facility] Work Phone: MCHC (RBC) [Mass/Vol] 32.2 % 32.0 - 36.0 % [facility] Work Phone: MCV (RBC) [Entitic vol] 74.4 fL Low 79.0 - 98.0 fL [facility] Work Phone: Platelet distribution width (Bld) [Ratio] 25.1 % High 11.5 - 14.5 % [facility] Work Phone: Platelet mean volume (Bld) [Entitic vol] 7.1 fL Low 7.4 - 10.4 fL [facility] Work Phone: Platelets (Bld) [#/Vol] 216 10*3/uL 140 - 440 10*3/uL [facility] Work Phone: RBC (Bld) [#/Vol] 3.69 10*6/uL Low 3.80 - 5.2 0 10*6/uL [facility] Work Phone: WBC (Bld) [#/Vol] 5.5 10*3/uL 3.6 - 10.7 10*3/uL [facility] Work Phone: [facility] Work Phone: [facility] Work Phone: Glucose,Bedsideon 07-01-2021 Glucose [Mass/Vol] 187 mg/dL High 70-100 [facility] Comment on above: Result Comment: Test performed by glucose meter. Results may be 10%-15% lowerthan serum/plasma values. (CLIA ID [id number]) Performed By: #### B GLU ####[facility] [place], [place] Glucose [Mass/Vol] 165 mg/dL High 70-100 [facility] Comment on above: Result Comment: Test performed by glucose meter. Results may be 10%-15% lowerthan serum/plasma values. (CLIA ID [id number]) Performed By: #### B GLU ####[facility] [place], [place] Glucose [Mass/Vol] 148 mg/dL High 70-100 [facility] Comment on above: Result Comment: Test performed by glucose meter. Results may be 10%-15% lowerthan serum/plasma values. (CLIA ID [id number]) Performed By: #### B GLU ####[facility] [place], [place] Hemogram w/ Autodiffon 07-01 Erythrocyte distribution width (RBC) [Ratio] 25.1 % High 11.5-14.5 [facility] Comment on above: Performed By: #### P HAM3TYLER, MG3, HEMDF, BMP3 ####[facility] [place], [place] #### OSM ####[facility] [place] [address] Hematocrit (Bld) [Volume fraction] 27.4 % Low 35.0-47.0 [facility] Comment on above: Performed By: #### P HAM3, MDIFF, MG3, HEMDF, BMP3 ####[facility] [place], [place] #### OSM ####[facility] [place] [address] Hemoglobin (Bld) [Mass/Vol] 8.8 g/dL Low 11.7-16.0 [facility] Comment on above: Performed By: #### P HOS3, MDIFF, MG3, HEMDF, BMP3 ####[facility] [place], [place] #### OSM ####[facility] [facility] [place] [address] MCH (RBC) [Entitic mass] 24.0 pg Low 26.0-34.0 [facility] Comment on above: Performed By: #### P HOS3, MDIFF, MG3, HEMDF, BMP3 ####[place] [address] [place], [place] #### OSM ####[facility] [place] [address] MCHC 32.2 % Normal 32.0-36.0 [facility] Comment on above: Performed By: #### P HOS3, MDIFF, MG3, HEMDF, BMP3 ####[address] #### OSM ####[facility] [place] [address] MCV (RBC) [Entitic vol] 74.4 fL Low 79.0-98.0 [facility] Comment on above: Performed By: #### P HOS3, MDIFF, MG3, HEMDF, BMP3 ####[place] [address] [place], [place] #### OSM ####[facility] [place] [address] Platelet mean volume (Bld) [Entitic vol] 7.1 fL Low 7.4-10.4 [facility] Comment on above: Performed By: #### P HOS3, MDIFF, MG3, HEMDF, BMP3 ####[place] [address] [place], [place] #### OSM ####[facility] [place] [address] Platelets (Bld) [#/Vol] 216 10*3/uL Normal 140-440 [facility] Comment on above: Performed By: #### P HOS3, MDIFF, MG3, HEMDF, BMP3 ####[facility] [place], [place] #### OSM ####[facility] [place] [address] RBC (Bld) [#/Vol] 3.69 10*6/uL Low 3.80-5.20 [facility] Comment on above: Performed By: #### P HOS3, MDIFF, MG3, HEMDF, BMP3 ####[facility] [employer] [address] [place], [place] #### OSM ####[facility] [place] [address] WBC (Bld) [#/Vol] 5.5 10*3/uL Normal 3.6-10.7 [facility] Comment on above: Performed By: #### P HOS3, MDIFF, MG3, HEMDF, BMP3 ####[facility] [employer] [address] [place], [place] #### OSM ####[facility] [place] [address] Magnesiumon 07-01-2021 Magnesium [Mass/Vol] 1.8 mg/dL Normal 1.6-2.3 [facility] Comment on above: Performed By: #### P HOS3, MDIFF, MG3, HEMDF, BMP3 ####[facility] [employer] [address] [place], [place] #### OSM ####[facility] [place] [address] MagnesiumOrdered By: Michelle lauren on 07-01-2021 Magnesium [Mass/Vol] 1.8 mg/dL 1.6 - 2 .3 mg/dL [facility] Work Phone: Manual Diffon 07-01-2021 Abs Baso Cnt 0.0 10*3/uL Normal 0.0-0.2 [facility] Comment on above: Performed By: #### P HOS3, MDIFF, MG3, HEMDF, BMP3 ####[facility] . [place], [place] #### OSM ####[facility] [place] [address] Abs Eosin Cnt 0.2 10*3/uL Normal 0.0-0.5 [facility] Comment on above: Performed By: #### P HOS3, MDIFF, MG3, HEMDF, BMP3 ####[place] [address] [place], [place] #### OSM ####[facility] [place] [address] Abs Lymph Cnt 0.8 10*3/uL Low 1.1-4.5 [facility] Comment on above: Performed By: #### P HOS3, MDIFF, MG3, HEMDF, BMP3 ####[address] #### OSM ####[place] [address] [place] [address] Abs Monocyte Cnt 0.1 10*3/uL Low 0.2-1.1 [facility] Comment on above: Performed By: #### P HOS3, MDIFF, MG3, HEMDF, BMP3 ####[place] [address] [place], [place] #### OSM ####[facility] [place] [address] Abs Neutrophile Cnt 4.2 10*3/uL Normal 2.2-8.2 [facility] Comment on above: Performed By: #### P HOS3, MDIFF, MG3, HEMDF, BMP3 ####[place] [address] [place], [place] #### OSM ####[facility] [place] [address] Bands 0 % Normal 0-3 [facility] Comment on above: Performed By: #### P HOS3, MDIFF, MG3, HEMDF, BMP3 ####[facility] [address] [place] [place] [address]#### OSM ####[facility] [place] [address] Basophils 0 % Normal 0-2 [facility] Comment on above: Performed By: #### P HOS3, MDIFF, MG3, HEMDF, BMP3 ####[facility] [address] [place] [place] #### OSM ####[facility] [place] [address] Cells counted 100 Normal [facility] Comment on above: Performed By: #### P HOS3, MDIFF, MG3, HEMDF, BMP3 ####[facility] [facility] [place] [place] #### OSM ####[facility] [place] [address] Eosinophils 3 % Normal 1-6 [facility] Comment on above: Performed By: #### P HOS3, MDIFF, MG3, HEMDF, BMP3 ####[facility] [facility] [place] [place] #### OSM ####[facility] [place] [address] Lymphocytes 14 % Low 20-40 [facility] Comment on above: Performed By: #### P HOS3, MDIFF, MG3, HEMDF, BMP3 ####[facility] [address] #### OSM ####[facility] [place] [address] Metamyelocytes 3 % Abnormal <1 [facility] Comment on above: Performed By: #### P HOS3, MDIFF, MG3, HEMDF, BMP3 ####[facility] [address] #### OSM ####[facility] [place] [address] Monocytes 2 % Normal 2-10 [facility] Comment on above: Performed By: #### P HOS3, MDIFF, MG3, HEMDF, BMP3 ####[facility] [address] [place] [address]#### OSM ####[facility] [address] [place] [address] Myelocytes 1 % Abnormal <1 [facility] Comment on above: Performed By: #### P HOS3, MDIFF, MG3, HEMDF, BMP3 ####[facility] [address] [facility], [place] #### OSM ####[facility] [address] [place] [address] RBC Morphology See Prev Normal [facility] Comment on above: Performed By: #### P HOS3, MDIFF, MG3, HEMDF, BMP3 ####[facility] [address] [place], [place] #### OSM ####[facility] [address] [place] [address] Seg Neutrophils 77 % Normal 40-80 [facility] Comment on above: Performed By: #### P HOS3, MDIFF, MG3, HEMDF, BMP3 ####[facility] [address] [facility], [place] #### OSM ####[facility] [address] [place] [address] Manual DifferentialOrdered B y: Michelle Petty on 07-01-2021 Absolute Baso # 0.0 10*3/uL 0.0 - 0.2 10*3/uL [facility] Work Phone: [phone] Absolute Eos # 0.2 10*3/uL 0.0 - 0.5 10*3/uL [facility] Work Phone: [phone] Absolute Lymph # 0.8 10*3/uL Low 1.1 - 4.5 10*3/uL [facility] Work Phone: [phone] Absolute [place] # 0.1 10*3/uL Low 0.2 - 1.1 10*3/uL [facility] Work Phone: [phone] Absolute Neut # 4.2 10*3/uL 2.2 - 8.2 10*3/uL [facility] Work Phone: [phone] Bands 0 % 0 - 3 % [facility] Work Phone: [phone] Basophils/100 WBC (Bld) 0 % 0 - 2 % [facility] Work Phone: [phone] Eosinophils/100 WBC (Bld) 3 % 1 - 6 % [facility] Work Phone: [phone] Interpretation and review of laboratory results Abnormal [facility] Work Phone: [phone] Lymphocytes/100 WBC (Bld) 14 % Low 20 - 40 % [facility] Work Phone: [phone] Metamyelocytes 3 % Abnormal <1 [facility] Work Phone: [phone] Monocytes/100 WBC (Bld) 2 % 2 - 10 % [facility] Work Phone: [phone] Myelocytes 1 % Abnormal <1 [facility] Work Phone: [phone] RBC (Bld) [#/Vol] See Prev [facility] Work Phone: [phone] Seg Neutrophils 77 % 40 - 80 % [facility] Work Phone: [phone] TOTAL CELLS COUNTED 100 [facility] Work Phone: [phone] [facility] Work Phone: [phone] [facility] Work Phone: [phone] Panel InformationOrdered By: Michelle Petty on 07-01-2021 Interpretation and review of laboratory results Abnormal [facility] Work Phone: [phone] [facility] Work Phone: [phone] [facility] Work Phone: [phone] OsmolalityOrdered By: Lindsey Joyce on 07-01-2021 Interpretation and review of laboratory results Abnormal [facility] Work Phone: [phone] Serum Osmolality 309 mosm/kg High 280 - 300 mosm/kg [facility] Work Phone: [phone] [facility] Work Phone: [phone] [facility] Work Phone: [phone] Osmolality,Serumon 1 Osmolality,Serum 309 mosm/kg High 280-300 [facility] Comment on above: Performed By: #### P HOS3, MDIFF, MG3, HEMDF, BMP3 ####[address] [place] [address]#### OSM ####[email or web address] [address] [place] [address] POCT GlucoseOrdered By: Jessica Soni on 07-01-2021 [...] 07-01-2021 Phosphate [Mass/Vol] 6.4 mg/dL High 2.5-4.5 [facility] Comment on above: Performed By: #### P HAM3TYLER, MG3, HEMDF, BMP3 ####[facility] [place] [address]#### OSM ####[facility] [address] [place] [address] PhosphorusOrdered By: Michelle pearson on 07-01-2021 Phosphate [Mass/Vol] 6.4 mg/dL High 2.5 - 4 .5 mg/dL [facility] Work Phone: Basic Metabolic Panelon 08-0 Calcium [Mass/Vol] 8.5 mg/dL Normal 8.4-10.4 [facility] Comment on above: Performed By: #### B MP3, PHOS3, LFT3, MG3, HEMDF ####[facility] [place] [place] [address]#### OSM ####[facility] [place] [address] Glucose [Mass/Vol] 119 mg/dL High 70-100 [facility] Comment on above: Performed By: #### B MP3, PHOS3, LFT3, MG3, HEMDF ####[place] [address] [place] [place] [address]#### OSM ####[facility] [place] [address] Urea nitrogen [Mass/Vol] 58 mg/dL High 7-20 [facility] Comment on above: Performed By: #### B MP3, PHOS3, LFT3, MG3, HEMDF ####[place] [address] [facility] [place] #### OSM ####[facility] [place] [address] Anion gap [Moles/Vol] 6 mmol/L Normal 3-13 [facility] Comment on above: Performed By: #### B MP3, PHOS3, LFT3, MG3, HEMDF ####[place] [address] [facility] [place] #### OSM ####[facility] [place] [address] CO2 [Moles/Vol] 24 mmol/L Normal 22-30 [facility] Comment on above: Performed By: #### B MP3, PHOS3, LFT3, MG3, HEMDF ####[facility] [facility] [place] #### OSM ####[facility] [place] [address] Creatinine [Mass/Vol] 2.61 mg/dL High 0.52-1.25 [facility] Comment on above: Performed By: #### B MP3, PHOS3, LFT3, MG3, HEMDF ####[facility] [place] [address]#### OSM ####[employer] [address] [place] [address] GFR/1.73 sq M.predicted among blacks MDRD (S/P/Bld) [Vol rate/Area] 23.3 mL/min/{1.73_m2} Abnormal >60 [facility] Comment on above: Performed By: #### B MP3, PHOS3, LFT3, MG3, HEMDF ####[facility] [place] [address]#### OSM ####[facility] [place] [address] GFR/1.73 sq M.predicted among non-blacks MDRD (S/P/Bld) [Vol rate/Area] 20.1 mL/min/{1.73_m2} Abnormal >60 [facility] Comment on above: Result Comment: KDIG O guidelines provide the following GFR categories:Stage GFR(ml/min/1.73 m2) TermsG1 >=90 Normal or highG2 60-89 Mildly decreased*G3a 45-59 Mildly to moderately [id number] 30-44 Moderately to severely decreasedG4 15-29 Severely [...] #### B MP3, PHOS3, LFT3, MG3, HEMDF ####[facility] [place] [address]#### OSM ####[employer] [address] [place] [address] Potassium [Moles/Vol] 5.2 mmol/L High 3.5-5.1 [facility] Comment on above: Performed By: #### B MP3, PHOS3, LFT3, MG3, HEMDF ####[facility] [address] [place] [address]#### OSM ####[facility] [place] [address] Sodium [Moles/Vol] 134 mmol/L Low 135-145 [facility] Comment on above: Performed By: #### B MP3, PHOS3, LFT3, MG3, HEMDF ####[facility] [place] [address]#### OSM ####[facility] [place] [address] Chloride [Moles/Vol] 104 mmol/L Normal 98-107 [facility] Comment on above: Performed By: #### B MP3, PHOS3, LFT3, MG3, HEMDF ####[facility] [address] [place] [address]#### OSM ####[facility] [place] [address] Basic Metabolic PanelOrdered By: Silver Nick on 06-30-2021 Anion gap [Moles/Vol] 6 mmol/L 3 - 13 mmol/L [facility] Work Phone: Calcium [Mass/Vol] 8.5 mg/dL 8.4 - 10. 4 mg/dL [facility] Work Phone: Chloride [Moles/Vol] 104 mmol/L 98 - 10 7 mmol/L [facility] Work Phone: CO2 [Moles/Vol] 24 mmol/L 22 - 30 mmol/L [facility] Work Phone: Creatinine [Mass/Vol] 2.61 mg/dL High 0.52 - 1.25 mg/dL [facility] Work Phone: EGFR IF NonAfrican [place] 20.1 mL/min Abnormal >60 [facility] Work Phone: [...] - 4.3 10*3/uL [facility] Work Phone: Absolute [place] # 0.6 10*3/uL 0.0 - 0.8 10*3/uL [...] 35.0 - 47.0 % [facility] Work Phone: [phone] Hemoglobin.gastrointes tinal spec 1 Ql (Stl) 9.3 g/dL Low 11.7 - 16.0 g/dL [facility] Work Phone: [phone] Interpretation and review of laboratory results Abnormal [facility] Work Phone: [phone] Lymphocytes/100 WBC (Bld) 15.0 % Low 20.0 - 40.0 % [employer] Work Phone: [phone] MCH (RBC) [Entitic mass] 23.8 pg Low 26.0 - 34.0 pg [facility] Work Phone: [phone] MCHC (RBC) [Mass/Vol] 32.1 % 32.0 - 36.0 % [employer] [employer] Work Phone: [phone] MCV (RBC) [Entitic vol] 74.1 fL Low 79.0 - 98.0 fL [employer] [facility] Work Phone: [phone] Monocytes/100 WBC (Bld) 8.8 % 2.0 - 10.0 % [employer] [facility] Work Phone: [phone] Platelet distribution width (Bld) [Ratio] 24.6 % High 11.5 - 14.5 % [employer] Work Phone: [phone] Platelet mean volume (Bld) [Entitic vol] 7.3 fL Low 7.4 - 10.4 fL [employer] Work Phone: [phone] Platelets (Bld) [#/Vol] 206 10*3/uL 140 - 440 10*3/uL [employer] Work Phone: [phone] RBC (Bld) [#/Vol] 3.89 10*6/uL 3.80 - 5.2 0 10*6/uL [facility] Work Phone: [phone] WBC (Bld) [#/Vol] 6.8 10*3/uL 3.6 - 10.7 10*3/uL [employer] Work Phone: [phone] [employer] Work Phone: [phone] [employer] Work Phone: [phone] Glucose,Bedsideon 06-30-2021 Glucose [Mass/Vol] 129 mg/dL High 70-100 [facility] Comment on above: Result Comment: Test performed by glucose meter. Results may be 10%-15% lowerthan serum/plasma values. (CLIA ID [id number]) Performed By: #### B GLU ####[facility] [place], [place] Glucose [Mass/Vol] 132 mg/dL High 70-100 [facility] Comment on above: Result Comment: Test performed by glucose meter. Results may be 10%-15% lowerthan serum/plasma values. (CLIA ID [id number]) Performed By: #### B GLU ####[employer] [place], [place] Glucose [Mass/Vol] 104 mg/dL [facility] [address] [facility] Comment on above: Result Comment: Test performed by glucose meter. Results may be 10%-15% lowerthan serum/plasma values. (CLIA ID [id number]) Performed By: #### B GLU ####[facility] [place], [place] Glucose,BedsideOrdered By: Sly Soni on 06-30-2021 Glucose [Mass/Vol] 146 mg/dL [facility] [address] Work Phone: Comment on above: Result Comment: Test performed by glucose meter. Results may be 10%-15% lowerthan serum/plasma values. (CLIA ID [id number]) Performed By: #### B GLU ####[facility] [place], [place] Hemogram w/ Autodiffon 06-30 Abs Baso Cnt 0.0 10*3/uL Normal 0.0-0.2 [facility] Comment on above: Performed By: #### B MP3, PHOS3, LFT3, MG3, HEMDF ####[facility] [place], [place] #### OSM ####[employer] [address] [place] [address] Abs Neutrophile Cnt 4.8 10*3/uL Normal 1.8-7.0 [facility] Comment on above: Performed By: #### B MP3, PHOS3, LFT3, MG3, HEMDF ####[address] [place], [place] #### OSM ####[facility] [place] [address] Basophils/100 WBC (Bld) 0.3 % Normal 0.0-2.0 [facility] Comment on above: Performed By: #### B MP3, PHOS3, LFT3, MG3, HEMDF ####[address] #### OSM ####[facility] [place] [address] Eosinophils (Bld) [#/Vol] 0.3 10*3/uL Normal 0.0-0.5 [facility] Comment on above: Performed By: #### B MP3, PHOS3, LFT3, MG3, HEMDF ####[address] #### OSM ####[facility] [place] [address] Eosinophils/100 WBC (Bld) 5.0 % Normal 1.0-6.0 [facility] Comment on above: Performed By: #### B MP3, PHOS3, LFT3, MG3, HEMDF ####[address] [place], [place] #### OSM ####[facility] [place] [address] Erythrocyte distribution width (RBC) [Ratio] 24.6 % High 11.5-14.5 [facility] Comment on above: Performed By: #### B MP3, PHOS3, LFT3, MG3, HEMDF ####[address] [place], [place] #### OSM ####[facility] [place] [address] Granulocytes/100 WBC (Bld) 70.9 % Normal 40.0-80.0 [facility] Comment on above: Performed By: #### B MP3, PHOS3, LFT3, MG3, HEMDF ####[facility] [employer] [address] [place], [place] #### OSM ####[facility] [place] [address] Hematocrit (Bld) [Volume fraction] 28.8 % Low 35.0-47.0 [facility] Comment on above: Performed By: #### B MP3, PHOS3, LFT3, MG3, HEMDF ####[facility] [employer] [address] #### OSM ####[facility] [employer] [address] [place] [address] Hemoglobin (Bld) [Mass/Vol] 9.3 g/dL Low 11.7-16.0 [facility] Comment on above: Performed By: #### B MP3, PHOS3, LFT3, MG3, HEMDF ####[facility] [employer] [address] #### OSM ####[facility] [employer] [address] [place] [address] Lymphocytes (Bld) [#/Vol] 1.0 10*3/uL Normal 1.0-4.3 [facility] Comment on above: Performed By: #### B MP3, PHOS3, LFT3, MG3, HEMDF ####[facility] [employer] [address] [place], [place] #### OSM ####[facility] [employer] [address] [place] [address] Lymphocytes/100 WBC (Bld) 15.0 % Low 20.0-40.0 [facility] Comment on above: Performed By: #### B MP3, PHOS3, LFT3, MG3, HEMDF ####[facility] [employer] [address] #### OSM ####[facility] [place] [address] MCH (RBC) [Entitic mass] 23.8 pg Low 26.0-34.0 [facility] Comment on above: Performed By: #### B MP3, PHOS3, LFT3, MG3, HEMDF ####[address] [place], [place] #### OSM ####[facility] [place] [address] MCHC 32.1 % Normal 32.0-36.0 [facility] Comment on above: Performed By: #### B MP3, PHOS3, LFT3, MG3, HEMDF ####[address] #### OSM ####[facility] [place] [address] MCV (RBC) [Entitic vol] 74.1 fL Low 79.0-98.0 [facility] Comment on above: Performed By: #### B MP3, PHOS3, LFT3, MG3, HEMDF ####[address] #### OSM ####[facility] [place] [address] Monocytes (Bld) [#/Vol] 0.6 10*3/uL Normal 0.0-0.8 [facility] Comment on above: Performed By: #### B MP3, PHOS3, LFT3, MG3, HEMDF ####[address] #### OSM ####[facility] [place] [address] Monocytes/100 WBC (Bld) 8.8 % Normal 2.0-10.0 [facility] Comment on above: Performed By: #### B MP3, PHOS3, LFT3, MG3, HEMDF ####[address] #### OSM ####[facility] [place] [address] Platelet mean volume (Bld) [Entitic vol] 7.3 fL Low 7.4-10.4 [facility] Comment on above: Performed By: #### B MP3, PHOS3, LFT3, MG3, HEMDF ####[place] [address] [facility] [facility] [place] #### OSM ####[facility] [place] [address] Platelets (Bld) [#/Vol] 206 10*3/uL Normal 140-440 [facility] Comment on above: Performed By: #### B MP3, PHOS3, LFT3, MG3, HEMDF ####[place] [address] [facility] [place] #### OSM ####[facility] [place] [address] RBC (Bld) [#/Vol] 3.89 10*6/uL Normal 3.80-5.20 [facility] Comment on above: Performed By: #### B MP3, PHOS3, LFT3, MG3, HEMDF ####[place] [address] [facility] [place] #### OSM ####[facility] [place] [address] WBC (Bld) [#/Vol] 6.8 10*3/uL Normal 3.6-10.7 [facility] Comment on above: Performed By: #### B MP3, PHOS3, LFT3, MG3, HEMDF ####[place] [address] [facility] [place] #### OSM ####[facility] [place] [address] Hepatic Functionon 1 ALP [Catalytic activity/Vol] 83 U/L Normal 38-126 [facility] Comment on above: Performed By: #### B MP3, PHOS3, LFT3, MG3, HEMDF ####[place] [address] [facility] [place] #### OSM ####[facility] [place] [address] ALT [Catalytic activity/Vol] 30 U/L Normal 0-34 [facility] Comment on above: Result Comment: The ALT test is performed by an updated assay method.Please note that the reference intervals have beenchanged and are now sex specific. Performed By: #### B MP3, PHOS3, LFT3, MG3, HEMDF ####[place] [address] [facility] #### OSM ####[facility] [place] [address] AST [Catalytic activity/Vol] 29 U/L Normal 15-46 [facility] Comment on above: Performed By: #### B MP3, PHOS3, LFT3, MG3, HEMDF ####[address] [place] #### OSM ####[facility] [place] [address] Bilirubin [Mass/Vol] 0.4 mg/dL Normal 0.2-1.3 [facility] Comment on above: Performed By: #### B MP3, PHOS3, LFT3, MG3, HEMDF ####[address] [place] #### OSM ####[facility] [place] [address] Bilirubin.indirect [Mass/Vol] 0.0 mg/dL Normal 0.0-0.3 [facility] Comment on above: Performed By: #### B MP3, PHOS3, LFT3, MG3, HEMDF ####[place] [address] [facility] [place] #### OSM ####[facility] [place] [address] Protein [Mass/Vol] 6.1 g/dL Low 6.3-8.2 [facility] Comment on above: Performed By: #### B MP3, PHOS3, LFT3, MG3, HEMDF ####[place] [address] [facility] [facility] [address] #### OSM ####[facility] [place] [address] Albumin [Mass/Vol] 2.8 g/dL Low 3.5-5.0 [facility] Comment on above: Performed By: #### B MP3, PHOS3, LFT3, MG3, HEMDF ####[facility] [employer] [address] [place], [place] #### OSM ####[facility] [employer] [address] [place] [address] Hepatic Function PanelOrdere d By: Tello Sterling on 06-30-2021 Albumin [Mass/Vol] 2.8 g/dL Low 3.5 - 5.0 g/dL [facility] Work Phone: [phone] ALP (Bld) [Catalytic activity/Vol] 83 U/L 38 - 126 U/L [facility] Work Phone: [phone] ALT [Catalytic activity/Vol] 30 U/L 0 - 34 U/L [facility] Work Phone: [phone] AST [Catalytic activity/Vol] 29 U/L 15 - 46 U/L [facility] Work Phone: [phone] Bilirubin [Mass/Vol] 0.4 mg/dL 0.2 - 1 .3 mg/dL [facility] Work Phone: [phone] Bilirubin.indirect [Mass/Vol] 0.0 mg/dL 0.0 - 0.3 mg/dL [facility] Work Phone: [phone] Free PSA/Total PSA [Mass fraction] 6.1 g/dL Low 6.3 - 8.2 g/dL [facility] Work Phone: [phone] Magnesiumon 06-30-2021 Magnesium [Mass/Vol] 1.9 mg/dL Normal 1.6-2.3 [facility] [employer] [facility] Comment on above: Performed By: #### B MP3, PHOS3, LFT3, MG3, HEMDF ####[facility] [employer] [address] [place], [place] #### OSM ####[facility] [employer] [address] [place] [address] MagnesiumOrdered By: Michelle lauren on 06-30-2021 Magnesium [Mass/Vol] 1.9 mg/dL 1.6 - 2 .3 mg/dL [facility] Work Phone: [phone] Panel InformationOrdered By: Lindsey Joyce on 06-30-2021 Interpretation and review of laboratory results Abnormal [facility] Work Phone: [phone] [facility] Work Phone: [phone] [facility] Work Phone: [phone] Panel InformationOrdered By: Michelle Petty on 06-30-2021 Interpretation and review of laboratory results Abnormal [facility] Work Phone: [phone] [facility] Work Phone: [phone] [facility] Work Phone: [phone] OsmolalityOrdered By: Lindsey Joyce on 06-30-2021 Serum Osmolality 302 mosm/kg High 280 - 300 mosm/kg [facility] Work Phone: [phone] Osmolality, UrineOrdered By: April Araujo on 06-30-2021 Interpretation and review of laboratory results Abnormal [facility] Work Phone: [phone] Osmolality, Ur 213 mosm/kg Low 300 - 1000 mosm/kg [facility] Work Phone: [phone] [facility] Work Phone: [phone] [facility] Work Phone: [phone] Osmolality,Serumon 1 Osmolality,Serum 302 mosm/kg High 280-300 [facility] Comment on above: Performed By: #### B MP3, PHOS3, LFT3, MG3, HEMDF ####[address] [place], [place] #### OSM ####[employer] [address] [place] [address] Osmolality,Urineon 1 Osmolality,Urine 213 mosm/kg Low 300-1000 [facility] Comment on above: Performed By: #### O SMUR ####[employer] [address] [place] [address]#### NAURR ####[employer] [place] [address] POCT GlucoseOrdered By: Jessica Soni on 06-30-2021 Glucose [Mass/Vol] 129 mg/dL High 70 - 100 mg/dL [facility] Work Phone: [phone] Interpretation and review of laboratory results Abnormal [facility] Work Phone: [phone] [facility] Work Phone: [phone] [facility] Work Phone: [phone] Glucose [Mass/Vol] 132 mg/dL High 70 - 100 mg/dL [facility] Work Phone: [phone] Interpretation and review of laboratory results Abnormal [facility] Work Phone: [phone] [facility] Work Phone: [phone] [facility] Work Phone: [phone] Glucose [Mass/Vol] 104 mg/dL High 70 - 100 mg/dL [facility] Work Phone: [phone] Interpretation and review of laboratory results Abnormal [facility] Work Phone: [phone] [facility] Work Phone: [phone] [facility] Work Phone: [phone] Phosphoruson 06-30-2021 Phosphate [Mass/Vol] 6.5 mg/dL High 2.5-4.5 [facility] Comment on above: Performed By: #### B MP3, PHOS3, LFT3, MG3, HEMDF ####[facility] [address] [place] [address]#### OSM ####[facility] [employer] [address] [place] [address] PhosphorusOrdered By: Michelle pearson on 06-30-2021 Phosphate [Mass/Vol] 6.5 mg/dL High 2.5 - 4 .5 mg/dL [facility] Work Phone: Sodium, Ur Randomon 06-30-20 21 Sodium [Moles/Vol] 31 mmol/L Normal 30-90 [facility] Comment on above: Performed By: #### O SMUR ####[facility] [employer] [address] [place] [address]#### NAURR ####[address] [place] [address] Basic Metabolic Panelon 07-3 Anion gap [Moles/Vol] 7 mmol/L Normal 3-13 [facility] Comment on above: Performed By: #### B MP3 ####[facility] [employer] [address] [place] [address] Calcium [Mass/Vol] 8.5 mg/dL Normal 8.4-10.4 [facility] Comment on above: Performed By: #### B MP3 ####[facility] [employer] [address] [place] [address] CO2 [Moles/Vol] 25 mmol/L Normal 22-30 [facility] Comment on above: Performed By: #### B MP3 ####[facility] [employer] [address] [place] [address] Creatinine [Mass/Vol] 2.86 mg/dL High 0.52-1.25 [facility] Comment on above: Performed By: #### B MP3 ####[facility] [employer] [address] [place] [address] GFR/1.73 sq M.predicted among blacks MDRD (S/P/Bld) [Vol rate/Area] 20.9 mL/min/{1.73_m2} Abnormal >60 [facility] Comment on above: Performed By: #### B MP3 ####[facility] [employer] [address] [place] [address] GFR/1.73 sq M.predicted among non-blacks MDRD (S/P/Bld) [Vol rate/Area] 18.0 mL/min/{1.73_m2} Abnormal >60 [facility] Comment on above: Result Comment: KDIG O guidelines provide the following GFR categories:Stage GFR(ml/min/1.73 m2) TermsG1 >=90 Normal or highG2 60-89 Mildly decreased*G3a 45-59 Mildly to moderately [id number] 30-44 Moderately to severely decreasedG4 15-29 Severely [...] creatinine secretion. Performed By: #### B MP3 ####[facility] [place], [place] Glucose [Mass/Vol] 115 mg/dL High 70-100 [facility] Comment on above: Performed By: #### B MP3 ####[address] [place], [place] Glucose [Mass/Vol] 114 mg/dL High 70-100 [facility] Comment on above: Performed By: #### B MP3 ####[address] [place], [place] Urea nitrogen [Mass/Vol] 57 mg/dL High 7-20 [facility] Comment on above: Performed By: #### B MP3 ####[address] [place], [place] Urea nitrogen [Mass/Vol] 58 mg/dL High 7-20 [facility] Comment on above: Performed By: #### B MP3 ####[place] [address] [place], [place] Anion gap [Moles/Vol] 7 mmol/L Normal 3-13 [facility] Comment on above: Performed By: #### B MP3 ####[place] [place], [place] CO2 [Moles/Vol] 25 mmol/L Normal 22-30 [facility] Comment on above: Performed By: #### B MP3 ####[place] [place], [place] Creatinine [Mass/Vol] 2.86 mg/dL High 0.52-1.25 [facility] Comment on above: Performed By: #### B MP3 ####[place] [place], [place] GFR/1.73 sq M.predicted among blacks MDRD (S/P/Bld) [Vol rate/Area] 20.9 mL/min/{1.73_m2} Abnormal >60 [facility] Comment on above: Performed By: #### B MP3 ####[address] GFR/1.73 sq M.predicted among non-blacks MDRD (S/P/Bld) [Vol rate/Area] 18.0 mL/min/{1.73_m2} Abnormal >60 [facility] Comment on above: Result Comment: KDIG O guidelines provide the following GFR categories:Stage GFR(ml/min/1.73 m2) TermsG1 >=90 Normal or highG2 60-89 Mildly decreased*G3a 45-59 Mildly to moderately ixfcjubvhH2g 30-44 Moderately to severely decreasedG4 15-29 Severely [...] creatinine secretion. Performed By: #### B MP3 ####[address] Chloride [Moles/Vol] 100 mmol/L Normal 98-107 [facility] Comment on above: Performed By: #### B MP3 ####[address] [place], [place] Potassium [Moles/Vol] 5.0 mmol/L Normal 3.5-5.1 [facility] Comment on above: Performed By: #### B MP3 ####[address] [place] [place], [place] Sodium [Moles/Vol] 132 mmol/L Low 135-145 [facility] Comment on above: Performed By: #### B MP3 ####[address] [address] Chloride [Moles/Vol] 100 mmol/L Normal 98-107 [facility] Comment on above: Performed By: #### B MP3 ####[facility] [place] [address] Potassium [Moles/Vol] 5.0 mmol/L Normal 3.5-5.1 [facility] Comment on above: Performed By: #### B MP3 ####[facility] [place] [address] Sodium [Moles/Vol] 131 mmol/L Low 135-145 [facility] Comment on above: Performed By: #### B MP3 ####[address] [place] [place], [place] Basic Metabolic PanelOrdered By: Silver Nick on 06-29-2021 Anion gap [Moles/Vol] 7 mmol/L 3 - 13 mmol/L [facility] Work Phone: Calcium [Mass/Vol] 8.5 mg/dL 8.4 - 10. 4 mg/dL [facility] Work Phone: Chloride [Moles/Vol] 100 mmol/L 98 - 10 7 mmol/L [facility] Work Phone: CO2 [Moles/Vol] 25 mmol/L 22 - 30 mmol/L [facility] Work Phone: Creatinine [Mass/Vol] 2.86 mg/dL High 0.52 - 1.25 mg/dL [facility] Work Phone: EGFR IF NonAfrican [place] 18.0 mL/min Abnormal >60 [facility] Work Phone: GFR/1.73 sq M.predicted among blacks MDRD (S/P/Bld) [Vol rate/Area] 20.9 mL/min/{1.73_m2} Abnormal >60 [facility] Work Phone: Glucose [Mass/Vol] 114 mg/dL High 70 - 100 mg/dL [facility] Work Phone: Potassium [Moles/Vol] 5.0 mmol/L 3.5 - 5.1 mmol/L [facility] Work Phone: [phone] Sodium [Moles/Vol] 131 mmol/L Low 135 - 145 mmol/L [facility] Work Phone: [phone] Urea nitrogen (BldV) [Mass/Vol] 58 mg/dL High 7 - 20 mg/dL [facility] Work Phone: [phone] Anion gap [Moles/Vol] 7 mmol/L 3 - 13 mmol/L [facility] Work Phone: [phone] Calcium [Mass/Vol] 8.5 mg/dL 8.4 - 10. 4 mg/dL [facility] Work Phone: [phone] Chloride [Moles/Vol] 100 mmol/L 98 - 10 7 mmol/L [facility] Work Phone: [phone] CO2 [Moles/Vol] 25 mmol/L 22 - 30 mmol/L [facility] Work Phone: [phone] Creatinine [Mass/Vol] 2.86 mg/dL High 0.52 - 1.25 mg/dL [facility] Work Phone: [phone] EGFR IF NonAfrican [place] 18.0 mL/min Abnormal >60 [facility] Work Phone: [phone] GFR/1.73 sq M.predicted among blacks MDRD (S/P/Bld) [Vol rate/Area] 20.9 mL/min/{1.73_m2} Abnormal >60 [facility] Work Phone: [phone] Glucose [Mass/Vol] 115 mg/dL High 70 - 100 mg/dL [facility] Work Phone: [phone] Interpretation and review of laboratory results Abnormal [facility] Work Phone: [phone] Potassium [Moles/Vol] 5.0 mmol/L 3.5 - 5.1 mmol/L [facility] Work Phone: [phone] Sodium [Moles/Vol] 132 mmol/L Low 135 - 145 mmol/L [facility] Work Phone: [phone] Urea nitrogen (BldV) [Mass/Vol] 57 mg/dL High 7 - 20 mg/dL [facility] Work Phone: [phone] [facility] Work Phone: [phone] [facility] Work Phone: [phone] CBC auto differentialOrdered By: Michelle Petty on 06-29-2021 Hematocrit (Bld) [Volume fraction] 35.1 % 35.0 - 47.0 % [employer] Work Phone: [phone] Hemoglobin.gastrointes tinal spec 1 Ql (Stl) 11.1 g/dL Low 11.7 - 16.0 g/dL [employer] Work Phone: [phone] Interpretation and review of laboratory results Abnormal [employer] Work Phone: MCH (RBC) [Entitic mass] 23.8 pg Low 26.0 - 34.0 pg [employer] Work Phone: MCHC (RBC) [Mass/Vol] 31.5 % Low 32.0 - 36.0 % [facility] Work Phone: MCV (RBC) [Entitic vol] 75.5 fL Low 79.0 - 98.0 fL [employer] Work Phone: Platelet distribution width (Bld) [Ratio] 25.3 % High 11.5 - 14.5 % [employer] Work Phone: Platelet mean volume (Bld) [Entitic vol] 7.5 fL 7.4 - 10.4 fL [employer] Work Phone: Platelets (Bld) [#/Vol] 163 10*3/uL 140 - 440 10*3/uL [employer] Work Phone: RBC (Bld) [#/Vol] 4.65 10*6/uL 3.80 - 5.2 0 10*6/uL [employer] Work Phone: [phone] WBC (Bld) [#/Vol] 4.6 10*3/uL 3.6 - 10.7 10*3/uL [employer] Work Phone: [phone] [employer] Work Phone: [phone] [facility] Work Phone: [phone] Glucose,Bedsideon 06-29-2021 Glucose [Mass/Vol] 141 mg/dL High 70-100 [facility] Comment on above: Result Comment: Test performed by glucose meter. Results may be 10%-15% lowerthan serum/plasma values. (CLIA ID [id number]) Performed By: #### B GLU ####[place] [place], [place] Glucose [Mass/Vol] 185 mg/dL High 70-100 [facility] Comment on above: Result Comment: Test performed by glucose meter. Results may be 10%-15% lowerthan serum/plasma values. (CLIA ID [id number]) Performed By: #### B GLU ####[address] Glucose [Mass/Vol] 146 mg/dL High 70-100 [facility] Comment on above: Result Comment: Test performed by glucose meter. Results may be 10%-15% lowerthan serum/plasma values. (CLIA ID [id number]) Performed By: #### B GLU ####[place] [place], [place] Hemogram w/ Autodiffon 06-29 Erythrocyte distribution width (RBC) [Ratio] 25.3 % High 11.5-14.5 [facility] Comment on above: Performed By: #### P HOS3 HEMROSA BLOOD MDIFF ####[place] [place], [place] Hematocrit (Bld) [Volume fraction] 35.1 % Normal 35.0-47.0 [facility] Comment on above: Performed By: #### P HOS3 HEMROSA BLOOD MDIFF ####[address] Hemoglobin (Bld) [Mass/Vol] 11.1 g/dL Low 11.7-16.0 [facility] Comment on above: Performed By: #### P HOS3 HEMDF MGMD VikkiIFF ####[address] MCH (RBC) [Entitic mass] 23.8 pg Low 26.0-34.0 [facility] Comment on above: Performed By: #### P HOS3 HEMDF, MGTYLER Florez ####[place] [place] MCHC 31.5 % Low 32.0-36.0 [facility] Comment on above: Performed By: #### P HOS3 HEMJEREMI MGTYLER Florez ####[place] [place], [place] MCV (RBC) [Entitic vol] 75.5 fL Low 79.0-98.0 [facility] Comment on above: Performed By: #### P HOS3 HEMJEREMI MGMD VikkiIFF ####[place] [address] [place], [place] Platelet mean volume (Bld) [Entitic vol] 7.5 fL Normal 7.4-10.4 [facility] Comment on above: Performed By: #### P HOS3 HEMJEREMI MGMD VikkiIFF ####[address] Platelets (Bld) [#/Vol] 163 10*3/uL Normal 140-440 [facility] Comment on above: Performed By: #### P HOSVikki HEMROSA BLOOD MDIFF ####[place] [address] [place], [place] RBC (Bld) [#/Vol] 4.65 10*6/uL Normal 3.80-5.20 [facility] Comment on above: Performed By: #### P HOS3 HEMJEREMI MGMD VikkiIFF ####[place] [place], [place] WBC (Bld) [#/Vol] 4.6 10*3/uL Normal 3.6-10.7 [facility] Comment on above: Performed By: #### P HOS3 HEMDF MGMD VikkiIFF ####[address] Magnesiumon 06-29-2021 Magnesium [Mass/Vol] 2.0 mg/dL Normal 1.6-2.3 [facility] Comment on above: Performed By: #### P FERMÍN SILVA MG3, MDIFF ####[address] MagnesiumOrdered By: Michelle lauren on 06-29-2021 Magnesium [Mass/Vol] 2.0 mg/dL 1.6 - 2 .3 mg/dL [facility] Work Phone: Manual Diffon 06-29-2021 Abs Eosin Cnt 0.2 10*3/uL Normal 0.0-0.5 [facility] Comment on above: Performed By: #### P FERMÍN SILVA MG3, MDIFF ####[id number] [place], [place] Abs Lymph Cnt 0.4 10*3/uL Low 1.1-4.5 [facility] Comment on above: Performed By: #### P FERMÍN SILVA MG3, MDIFF ####[address] Abs Monocyte Cnt 0.3 10*3/uL Normal 0.2-1.1 [facility] Comment on above: Performed By: #### P FERMÍN SILVA MG3, MDIFF ####[id number] [place], [place] Abs Neutrophile Cnt 3.6 10*3/uL Normal 2.2-8.2 [facility] Comment on above: Performed By: #### P HOS3 HEMROSA BLOOD MDIFF ####[id number] [place], [place] Anisocytosis Slight Normal [facility] Comment on above: Performed By: #### P FERMÍN SILVA MG3, MDIFF ####[address] Elliptocytes Slight Normal [facility] Comment on above: Performed By: #### P HOS3 HEMROSA BLOOD MDIFF ####[address] [id number] Eosinophils 4 % Normal 1-6 [facility] Comment on above: Performed By: #### P HOS3, HEMDF, MG3, MDIFF ####[id number] [place], [place] Lymphocytes 9 % Low 20-40 [facility] Comment on above: Performed By: #### P HOS3, HEMDF, MG3, MDIFF ####[address] Metamyelocytes 1 % Abnormal <1 [facility] Comment on above: Performed By: #### P HOS3, HEMDF, MG3, MDIFF ####[address] [place], [place] Microcytosis Slight Normal [facility] Comment on above: Performed By: #### P HOS3, HEMDF, MG3, MDIFF ####[address] [place], [place] Monocytes 7 % Normal 2-10 [facility] Comment on above: Performed By: #### P HOS3, HEMDF, MG3, MDIFF ####[address] [place], [place] Ovalocytes Slight Normal [facility] Comment on above: Performed By: #### P HOS3, HEMDF, MG3, MDIFF ####[address] [place], [place] Poikilocytosis Slight Normal [facility] Comment on above: Performed By: #### P HOS3, HEMDF, MG3, MDIFF ####[address] [place], [place] RBC Morphology ABNORMAL Normal [facility] Comment on above: Performed By: #### P HOS3, HEMDF, MG3, MDIFF ####[address] [place], [place] Seg Neutrophils 79 % Normal 40-80 [facility] Comment on above: Performed By: #### P HOS3, HEMDF, MG3, MDIFF ####[address] [address] [place], [place] Tear Drop Forms Slight Normal [facility] Comment on above: Performed By: #### P HOS3, HEMROSA BLOOD MDIFF ####[facility] [address] [place], [place] Abs Baso Cnt 0.0 10*3/uL Normal 0.0-0.2 [facility] Comment on above: Performed By: #### P HOS3, HEMROSA BLOOD, IFF ####[facility] [address] [place], [place] Bands 0 % Normal 0-3 [facility] Comment on above: Performed By: #### P HOS3FERMÍN MG3, IFF ####[address] Basophils 0 % Normal 0-2 [facility] Comment on above: Performed By: #### P HOS3, ROSA KOVACS MDIFF ####[facility] Exposed Vocals [address] Cells counted 100 Normal [facility] Comment on above: Performed By: #### P HOS3FERMÍN MG3, MDIFF ####[address] Manual DifferentialOrdered B y: Michelle Laquita on 06-29-2021 Absolute Baso # 0.0 10*3/uL 0.0 - 0.2 10*3/uL [facility] Work Phone: [phone] Absolute Eos # 0.2 10*3/uL 0.0 - 0.5 10*3/uL [facility] Work Phone: [phone] Absolute Lymph # 0.4 10*3/uL Low 1.1 - 4.5 10*3/uL [facility] Work Phone: [phone] Absolute [place] # 0.3 10*3/uL 0.2 - 1.1 10*3/uL [facility] Work Phone: [phone] Absolute Neut # 3.6 10*3/uL 2.2 - 8.2 10*3/uL [facility] Work Phone: [phone] Anisocytosis Slight [facility] Work Phone: [phone] Bands 0 % 0 - 3 % [facility] Work Phone: [phone] Basophils/100 WBC (Bld) 0 % 0 - 2 % [facility] Work Phone: [phone] Elliptocytes Slight [facility] Work Phone: [phone] Eosinophils/100 WBC (Bld) 4 % 1 - 6 % [facility] Work Phone: [phone] Interpretation and review of laboratory results Abnormal [facility] Work Phone: [phone] Lymphocytes/100 WBC (Bld) 9 % Low 20 - 40 % [facility] Work Phone: [phone] Metamyelocytes 1 % Abnormal <1 [facility] Work Phone: [phone] Microcytosis Slight [facility] Work Phone: [phone] Monocytes/100 WBC (Bld) 7 % 2 - 10 % [facility] Work Phone: [phone] Ovalocytes Slight [facility] Work Phone: [phone] Poikilocytes Slight [facility] Work Phone: [phone] RBC (Bld) [#/Vol] ABNORMAL [facility] Work Phone: [phone] Seg Neutrophils 79 % 40 - 80 % [facility] Work Phone: [phone] Tear Drop Cells Slight [facility] Work Phone: [phone] TOTAL CELLS COUNTED 100 [facility] Work Phone: [phone] [facility] Work Phone: [phone] [facility] Work Phone: [phone] No Panel InformationOrdered By: Michelle Petty on 06-29-2021 Interpretation and review of laboratory results Abnormal [facility] Work Phone: [phone] [facility] Work Phone: [phone] [facility] Work Phone: [phone] POCT GlucoseOrdered By: Jessica Soni on 06-29-2021 Glucose [Mass/Vol] 141 mg/dL High 70 - 100 mg/dL [facility] Work Phone: Interpretation and review of laboratory results Abnormal [facility] Work Phone: [facility] Work Phone: [phone] [facility] Work Phone: [phone] Glucose [Mass/Vol] 146 mg/dL High 70 - 100 mg/dL [facility] Work Phone: [phone] Interpretation and review of laboratory results Abnormal [facility] Work Phone: [phone] [facility] Work Phone: [phone] [facility] Work Phone: [phone] POCT GlucoseOrdered By: Gennaro Parsons on 06-29-2021 Glucose [Mass/Vol] 185 mg/dL High 70 - 100 mg/dL [facility] Work Phone: [phone] Interpretation and review of laboratory results Abnormal [facility] Work Phone: [phone] [facility] Work Phone: [phone] [facility] Work Phone: [phone] Phosphoruson 06-29-2021 Phosphate [Mass/Vol] 6.3 mg/dL High 2.5-4.5 [facility] Comment on above: Performed By: #### P HOS3, HEMDF, MG3, MDIFF ####[facility] [place] [address] PhosphorusOrdered By: Michelle pearson on 06-29-2021 Phosphate [Mass/Vol] 6.3 mg/dL High 2.5 - 4 .5 mg/dL [facility] Work Phone: [phone] SODIUM, URINE, RANDOMOrdered By: April Araujo on 06-29-2021 Sodium (U) [Moles/Vol] 31 mmol/L 30 - 90 mmol/L [facility] Work Phone: [phone] [facility] Work Phone: [phone] [facility] Work Phone: [phone] Basic Metabolic Panelon 06-01 Calcium [Mass/Vol] 8.5 mg/dL Normal 8.4-10.4 [facility] Comment on above: Performed By: #### B MP3 ####[facility] [place] [address] Glucose [Mass/Vol] 118 mg/dL High 70-100 [facility] Comment on above: Performed By: #### B MP3 ####[facility] Exposed Vocals [address] [place] [address] Anion gap [Moles/Vol] 9 mmol/L Normal 3-13 [facility] Comment on above: Performed By: #### B MP3 ####[facility] [employer] [address] [place] [address] CO2 [Moles/Vol] 23 mmol/L Normal 22-30 [facility] Comment on above: Performed By: #### B MP3 ####[facility] [employer] [address] [place] [address] Creatinine [Mass/Vol] 3.14 mg/dL High 0.52-1.25 [facility] Comment on above: Performed By: #### B MP3 ####[facility] Ex[employer]oc[employer] [address] [place] [address] GFR/1.73 sq M.predicted among blacks MDRD (S/P/Bld) [Vol rate/Area] 18.6 mL/min/{1.73_m2} Abnormal >60 [facility] Comment on above: Performed By: #### B MP3 ####[facility] Ex[employer]oc[employer] [address] [place] [address] GFR/1.73 sq M.predicted among non-blacks MDRD (S/P/Bld) [Vol rate/Area] 16.1 mL/min/{1.73_m2} Abnormal >60 [facility] Comment on above: Result Comment: KDIG O guidelines provide the following GFR categories:Stage GFR(ml/min/1.73 m2) TermsG1 >=90 Normal or highG2 60-89 Mildly decreased*G3a 45-59 Mildly to moderately atfnuwgmgS8x 30-44 Moderately to severely decreasedG4 15-29 Severely [...] creatinine secretion. Performed By: #### B MP3 ####[facility] [place], [place] Urea nitrogen [Mass/Vol] 56 mg/dL High 7-20 [facility] Comment on above: Performed By: #### B MP3 ####[facility] [place], [place] Chloride [Moles/Vol] 98 mmol/L Normal 98-107 [facility] Comment on above: Performed By: #### B MP3 ####[address] [place], [place] Potassium [Moles/Vol] 4.5 mmol/L Normal 3.5-5.1 [facility] Comment on above: Performed By: #### B MP3 ####[address] [place], [place] Sodium [Moles/Vol] 130 mmol/L Low 135-145 [facility] Comment on above: Performed By: #### B MP3 ####[address] Basic Metabolic PanelOrdered By: Silver Nick on 06-28-2021 Anion gap [Moles/Vol] 9 mmol/L 3 - 13 mmol/L [facility] Work Phone: Calcium [Mass/Vol] 8.5 mg/dL 8.4 - 10. 4 mg/dL [facility] Work Phone: Chloride [Moles/Vol] 98 mmol/L 98 - 10 7 mmol/L [facility] Work Phone: CO2 [Moles/Vol] 23 mmol/L 22 - 30 mmol/L [facility] Work Phone: Creatinine [Mass/Vol] 3.14 mg/dL High 0.52 - 1.25 mg/dL [facility] Work Phone: EGFR IF NonAfrican [place] 16.1 mL/min Abnormal >60 [facility] Work Phone: [phone] GFR/1.73 sq M.predicted among blacks MDRD (S/P/Bld) [Vol rate/Area] 18.6 mL/min/{1.73_m2} Abnormal >60 [facility] Work Phone: [phone] Glucose [Mass/Vol] 118 mg/dL High 70 - 100 mg/dL [facility] Work Phone: [phone] Interpretation and review of laboratory results Abnormal [facility] Work Phone: [phone] Potassium [Moles/Vol] 4.5 mmol/L 3.5 - 5.1 mmol/L [facility] Work Phone: [phone] Sodium [Moles/Vol] 130 mmol/L Low 135 - 145 mmol/L [facility] Work Phone: [phone] Urea nitrogen (BldV) [Mass/Vol] 56 mg/dL High 7 - 20 mg/dL [facility] Work Phone: [phone] [facility] Work Phone: [phone] [facility] Work Phone: [phone] CBC auto differentialOrdered By: Michelle Petty on 06-28-2021 Hematocrit (Bld) [Volume fraction] 28.6 % Low 35.0 - 47.0 % [facility] Work Phone: [phone] Hemoglobin.gastrointes tinal spec 1 Ql (Stl) 9.2 g/dL Low 11.7 - 16.0 g/dL [facility] Work Phone: [phone] Interpretation and review of laboratory results Abnormal [facility] Work Phone: [phone] MCH (RBC) [Entitic mass] 23.8 pg Low 26.0 - 34.0 pg [facility] Work Phone: [phone] MCHC (RBC) [Mass/Vol] 32.1 % 32.0 - 36.0 % [facility] Work Phone: [phone] MCV (RBC) [Entitic vol] 74.2 fL Low 79.0 - 98.0 fL [facility] Work Phone: [phone] Platelet distribution width (Bld) [Ratio] 24.7 % High 11.5 - 14.5 % [facility] Work Phone: [phone] Platelet mean volume (Bld) [Entitic vol] 8.0 fL 7.4 - 10.4 fL [facility] Work Phone: [phone] Platelets (Bld) [#/Vol] 184 10*3/uL 140 - 440 10*3/uL [facility] Work Phone: [phone] RBC (Bld) [#/Vol] 3.86 10*6/uL 3.80 - 5.2 0 10*6/uL [facility] Work Phone: [phone] WBC (Bld) [#/Vol] 5.7 10*3/uL 3.6 - 10.7 10*3/uL [facility] Work Phone: [phone] [facility] Work Phone: [phone] [facility] Work Phone: [phone] CORTISOL TOTALOrdered By: Fr foreign Martínezti on 06-28-2021 Cortisol 10.0 ug/dL [facility] Work Phone: [phone] [facility] Work Phone: [phone] [facility] Work Phone: [phone] Cortisolon 06-28-2021 Cortisol 10.0 ug/dL Normal [facility] Comment on above: Result Comment: Befo re 10am 4.5-22.7 ug/dLAfter 5pm 1.7-14.1 ug/dL Performed By: #### C ORTL ####[facility] [place] [address] Glucose,Bedsideon 06-28-2021 Glucose [Mass/Vol] 171 mg/dL High 70-100 [facility] Comment on above: Result Comment: Test performed by glucose meter. Results may be 10%-15% lowerthan serum/plasma values. (CLIA ID [id number]) Performed By: #### B GLU ####[facility] [place] [address] Glucose [Mass/Vol] 165 mg/dL High 70-100 [facility] Comment on above: Result Comment: Test performed by glucose meter. Results may be 10%-15% lowerthan serum/plasma values. (CLIA ID [id number]) Performed By: #### B GLU ####[address] [place], [place] Glucose [Mass/Vol] 161 mg/dL High 70-100 [facility] Comment on above: Result Comment: Test performed by glucose meter. Results may be 10%-15% lowerthan serum/plasma values. (CLIA ID [id number]) Performed By: #### B GLU ####[address] [place], [place] Glucose [Mass/Vol] 129 mg/dL High 70-100 [facility] Comment on above: Result Comment: Test performed by glucose meter. Results may be 10%-15% lowerthan serum/plasma values. (CLIA ID [id number]) Performed By: #### B GLU ####[address] [place], [place] Hemogram w/ Autodiffon 06-28 Erythrocyte distribution width (RBC) [Ratio] 24.7 % High 11.5-14.5 [facility] Comment on above: Performed By: #### V TYLER CHEN, HEMDF, PHOS3, LFT3, MG3 ####[address] [place], [place] Hematocrit (Bld) [Volume fraction] 28.6 % Low 35.0-47.0 [facility] Comment on above: Performed By: #### V TYLER CHEN, HEMDF, PHOS3, LFT3, MG3 ####[address] [place], [place] Hemoglobin (Bld) [Mass/Vol] 9.2 g/dL Low 11.7-16.0 [facility] Comment on above: Performed By: #### V TYLER CHEN, HEMDF, PHOS3, LFT3, MG3 ####[address] [place] MCH (RBC) [Entitic mass] 23.8 pg Low 26.0-34.0 [facility] Comment on above: Performed By: #### V ANL, MDIFF, HEMDF, PHOS3, LFT3, MG3 ####[address] [place], [place] MCHC 32.1 % Normal 32.0-36.0 [facility] Comment on above: Performed By: #### V ANL, MDIFF, HEMDF, PHOS3, LFT3, MG3 ####[address] [place] MCV (RBC) [Entitic vol] 74.2 fL Low 79.0-98.0 [facility] Comment on above: Performed By: #### V ANL, MDIFF, HEMDF, PHOS3, LFT3, MG3 ####[address] [place], [place] Platelet mean volume (Bld) [Entitic vol] 8.0 fL Normal 7.4-10.4 [facility] Comment on above: Performed By: #### V ANL, MDIFF, HEMDF, PHOS3, LFT3, MG3 ####[address] [place], [place] Platelets (Bld) [#/Vol] 184 10*3/uL Normal 140-440 [facility] Comment on above: Performed By: #### V ANL, MDIFF, HEMDF, PHOS3, LFT3, MG3 ####[address] [place], [place] RBC (Bld) [#/Vol] 3.86 10*6/uL Normal 3.80-5.20 [facility] Comment on above: Performed By: #### V ANL, MDIFF, HEMDF, PHOS3, LFT3, MG3 ####[address] WBC (Bld) [#/Vol] 5.7 10*3/uL Normal 3.6-10.7 [facility] Comment on above: Performed By: #### V ANL, MDIFF, HEMDF, PHOS3, LFT3, MG3 ####[address] Hepatic Functionon 1 ALP [Catalytic activity/Vol] 91 U/L Normal 38-126 [facility] Comment on above: Performed By: #### V ANL, MDIFF, HEMDF, PHOS3, LFT3, MG3 ####[address] [place], [place] ALT [Catalytic activity/Vol] 35 U/L High 0-34 [facility] Comment on above: Result Comment: The ALT test is performed by an updated assay method.Please note that the reference intervals have beenchanged and are now sex specific. Performed By: #### V ANL, MDIFF, HEMDF, PHOS3, LFT3, MG3 ####[address] [place], [place] AST [Catalytic activity/Vol] 32 U/L Normal 15-46 [facility] Comment on above: Performed By: #### V ANL, MDIFF, HEMDF, PHOS3, LFT3, MG3 ####[address] [place], [place] Bilirubin [Mass/Vol] 0.4 mg/dL Normal 0.2-1.3 [facility] Comment on above: Performed By: #### V ANL, MDIFF, HEMDF, PHOS3, LFT3, MG3 ####[address] [place], [place] Bilirubin.indirect [Mass/Vol] 0.0 mg/dL Normal 0.0-0.3 [facility] Comment on above: Performed By: #### V ANL, MDIFF, HEMDF, PHOS3, LFT3, MG3 ####[address] [place], [place] Protein [Mass/Vol] 6.0 g/dL Low 6.3-8.2 [facility] Comment on above: Performed By: #### V ANL, MDIFF, HEMDF, PHOS3, LFT3, MG3 ####[address] [place], [place] Albumin [Mass/Vol] 2.7 g/dL Low 3.5-5.0 [facility] Comment on above: Performed By: #### TYLER MONZON, HEMDF, PHOS3, LFT3, MG3 ####[facility] [place] [address] Hepatic Function PanelOrdere d By: Tello Sterling on 06-28-2021 Albumin [Mass/Vol] 2.7 g/dL Low 3.5 - 5.0 g/dL [facility] Work Phone: ALP (Bld) [Catalytic activity/Vol] 91 U/L 38 - 126 U/L [facility] Work Phone: ALT [Catalytic activity/Vol] 35 U/L High 0 - 34 U/L [facility] Work Phone: AST [Catalytic activity/Vol] 32 U/L 15 - 46 U/L [facility] Work Phone: Bilirubin [Mass/Vol] 0.4 mg/dL 0.2 - 1 .3 mg/dL [facility] Work Phone: Bilirubin.indirect [Mass/Vol] 0.0 mg/dL 0.0 - 0.3 mg/dL [facility] Work Phone: Free PSA/Total PSA [Mass fraction] 6.0 g/dL Low 6.3 - 8.2 g/dL [facility] Work Phone: Magnesiumon 06-28-2021 Magnesium [Mass/Vol] 2.0 mg/dL Normal 1.6-2.3 [facility] Comment on above: Performed By: #### TYLER MONZON, HEMDF, PHOS3, LFT3, MG3 ####[facility] [place] [address] MagnesiumOrdered By: Michelle lauren on 06-28-2021 Magnesium [Mass/Vol] 2.0 mg/dL 1.6 - 2 .3 mg/dL [facility] Work Phone: Manual Diffon 06-28-2021 Abs Eosin Cnt 0.2 10*3/uL Normal 0.0-0.5 [facility] Comment on above: Performed By: #### V ANL, MDIFF, HEMDF, PHOS3, LFT3, MG3 ####[address] [place], [place] Abs Lymph Cnt 0.4 10*3/uL Low 1.1-4.5 [facility] Comment on above: Performed By: #### V ANL, MDIFF, HEMDF, PHOS3, LFT3, MG3 ####[address] [place], [place] Abs Monocyte Cnt 0.2 10*3/uL Normal 0.2-1.1 [facility] Comment on above: Performed By: #### V ANL, MDIFF, HEMDF, PHOS3, LFT3, MG3 ####[address] Abs Neutrophile Cnt 4.6 10*3/uL Normal 2.2-8.2 [facility] Comment on above: Performed By: #### V ANL, MDIFF, HEMDF, PHOS3, LFT3, MG3 ####[address] Anisocytosis Slight Normal [facility] Comment on above: Performed By: #### V ANL, MDIFF, HEMDF, PHOS3, LFT3, MG3 ####[address] Bands 8 % High 0-3 [facility] Comment on above: Performed By: #### V ANL, MDIFF, HEMDF, PHOS3, LFT3, MG3 ####[address] [place], [place] Janette Cells Slight Normal [facility] Comment on above: Performed By: #### V ANL, MDIFF, HEMDF, PHOS3, LFT3, MG3 ####[address] [place], [place] Elliptocytes Slight Normal [facility] Comment on above: Performed By: #### V ANL, MDIFF, HEMDF, PHOS3, LFT3, MG3 ####[facility] [address] [place] [address] Eosinophils 4 % Normal 1-6 [facility] Comment on above: Performed By: #### V DWIGHTL, MDIFF, HEMDF, PHOS3, LFT3, MG3 ####[facility] [address] [place] [address] Lymphocytes 7 % Low 20-40 [facility] Comment on above: Performed By: #### V ANL, MDIFF, HEMDF, PHOS3, LFT3, MG3 ####[facility] [address] [place] [address] Metamyelocytes 3 % Abnormal <1 [facility] Comment on above: Performed By: #### V ANL, MDIFF, HEMDF, PHOS3, LFT3, MG3 ####[facility] [address] [place], [place] Microcytosis Slight Normal [facility] Comment on above: Performed By: #### V GUSTAVO, MDIFF, HEMDF, PHOS3, LFT3, MG3 ####[facility] [address] [place] [address] Monocytes 4 % Normal 2-10 [facility] Comment on above: Performed By: #### V GUSTAVO, MDIFF, HEMDF, PHOS3, LFT3, MG3 ####[facility] [address] [place] [address] Myelocytes 1 % Abnormal <1 [facility] Comment on above: Performed By: #### V GUSTAVO, MDIFF, HEMDF, PHOS3, LFT3, MG3 ####[facility] [address] [place] [address] Ovalocytes Slight Normal [facility] Comment on above: Performed By: #### V ANL, MDIFF, HEMDF, PHOS3, LFT3, MG3 ####[facility] [address] [place] [address] Poikilocytosis Slight Normal [facility] Comment on above: Performed By: #### V ANL, MDIFF, HEMDF, PHOS3, LFT3, MG3 ####[facility] [address] [place], [place] RBC Morphology ABNORMAL Normal [facility] Comment on above: Performed By: #### V ANL, MDIFF, HEMDF, PHOS3, LFT3, MG3 ####[facility] [address] [place], [place] Seg Neutrophils 73 % Normal 40-80 [facility] Comment on above: Performed By: #### V ANL, MDIFF, HEMDF, PHOS3, LFT3, MG3 ####[facility] [address] [place], [place] Abs Baso Cnt 0.0 10*3/uL Normal 0.0-0.2 [facility] Comment on above: Performed By: #### V ANL, MDIFF, HEMDF, PHOS3, LFT3, MG3 ####[address] [place], [place] Basophils 0 % Normal 0-2 [facility] Comment on above: Performed By: #### V ANL, MDIFF, HEMDF, PHOS3, LFT3, MG3 ####[facility] [employer] [address] [place], [place] Cells counted 100 Normal [facility] Comment on above: Performed By: #### V ANL, MDIFF, HEMDF, PHOS3, LFT3, MG3 ####[address] [place], [place] Manual DifferentialOrdered B y: Michelle Petty on 06-28-2021 Absolute Baso # 0.0 10*3/uL 0.0 - 0.2 10*3/uL [facility] Work Phone: Absolute Eos # 0.2 10*3/uL 0.0 - 0.5 10*3/uL [facility] Work Phone: Absolute Lymph # 0.4 10*3/uL Low 1.1 - 4.5 10*3/uL [facility] Work Phone: Absolute [place] # 0.2 10*3/uL 0.2 - 1.1 10*3/uL [facility] Work Phone: [phone] Absolute Neut # 4.6 10*3/uL 2.2 - 8.2 10*3/uL [facility] Work Phone: [phone] Anisocytosis Slight [facility] Work Phone: [phone] Bands 8 % High 0 - 3 % [facility] Work Phone: [phone] Basophils/100 WBC (Bld) 0 % 0 - 2 % [facility] Work Phone: [phone] Wallace Cells Slight [facility] Work Phone: [phone] Elliptocytes Slight [facility] Work Phone: [phone] Eosinophils/100 WBC (Bld) 4 % 1 - 6 % [facility] Work Phone: [phone] Interpretation and review of laboratory results Abnormal [facility] Work Phone: [phone] Lymphocytes/100 WBC (Bld) 7 % Low 20 - 40 % [facility] Work Phone: [phone] Metamyelocytes 3 % Abnormal <1 [facility] Work Phone: [phone] Microcytosis Slight [facility] Work Phone: [phone] Monocytes/100 WBC (Bld) 4 % 2 - 10 % [facility] Work Phone: [phone] Myelocytes 1 % Abnormal <1 [facility] Work Phone: [phone] Ovalocytes Slight [facility] Work Phone: [phone] Poikilocytes Slight [facility] Work Phone: [phone] RBC (Bld) [#/Vol] ABNORMAL [facility] Work Phone: [phone] Seg Neutrophils 73 % 40 - 80 % [facility] Work Phone: [phone] TOTAL CELLS COUNTED 100 [facility] Work Phone: [phone] [facility] Work Phone: [phone] [facility] Work Phone: [phone] No Panel InformationOrdered By: Michelle Petty on 06-28-2021 Interpretation and review of laboratory results Abnormal [facility] Work Phone: [phone] [facility] Work Phone: [phone] [facility] Work Phone: OsmolalityOrdered By: April Araujo on 06-28-2021 Serum Osmolality 293 mosm/kg 280 - 300 mosm/kg [facility] Work Phone: [phone] [facility] Work Phone: [phone] [facility] Work Phone: [phone] Osmolality,Serumon Osmolality,Serum 293 mosm/kg Normal 280-300 [facility] Comment on above: Performed By: #### O ####[facility] [address] [place] [address] POCT GlucoseOrdered By: Jessica Soni on 06-28-2021 Glucose [Mass/Vol] 171 mg/dL High 70 - 100 mg/dL [facility] Work Phone: [phone] Interpretation and review of laboratory results Abnormal [facility] Work Phone: [phone] [facility] Work Phone: [phone] [facility] Work Phone: [phone] Glucose [Mass/Vol] 161 mg/dL High 70 - 100 mg/dL [facility] Work Phone: [phone] Interpretation and review of laboratory results Abnormal [facility] Work Phone: [phone] [facility] Work Phone: [phone] [facility] Work Phone: [phone] Glucose [Mass/Vol] 129 mg/dL High 70 - 100 mg/dL [facility] Work Phone: [phone] Interpretation and review of laboratory results Abnormal [facility] Work Phone: [phone] [facility] Work Phone: [phone] [facility] Work Phone: [phone] POCT GlucoseOrdered By: Gennaro Parsons on 06-28-2021 Glucose [Mass/Vol] 165 mg/dL High 70 - 100 mg/dL [facility] Work Phone: [phone] Interpretation and review of laboratory results Abnormal [facility] Work Phone: [phone] [facility] Work Phone: [phone] [facility] Work Phone: Phosphoruson 06-28-2021 Phosphate [Mass/Vol] 5.7 mg/dL High 2.5-4.5 [facility] Comment on above: Performed By: #### V TYLER CHEN, HEMDF, PHOS3, LFT3, MG3 ####[facility] Exposed Vocals [id number] [place], [place] PhosphorusOrdered By: Michelle pearson on 06-28-2021 Phosphate [Mass/Vol] 5.7 mg/dL High 2.5 - 4 .5 mg/dL [facility] Work Phone: Vancomycinon 06-28-2021 Vancomycin 42.5 ug/mL High 15.0-20.0 [facility] Comment on above: Result Comment: . Performed By: #### V TYLER CHEN, HEMDF, PHOS3, LFT3, MG3 ####[id number] [place], [place] Vancomycin, RandomOrdered By : Tawanna Sifuentes [...] April Sterling on 06-27-2021 Add On Rejected [facility] Work Phone: Add on test from HISon 06-27 Add on test from HIS Accepted Normal [facility] Comment on above: Result Comment: Spec imen available & acceptable for analysis. Performed By: #### A DDON ####[id number] . [place], [place] Add on test from HIS Rejected Normal [facility] Comment on above: Result Comment: No s pecimen available for addon. Performed By: #### A DDON ####[address] [id number] [facility] [place] [address] Basic Metabolic Panelon 07-2 Anion gap [Moles/Vol] 7 mmol/L Normal 3-13 [facility] Comment on above: Performed By: #### V ANL, BMP3 ####[facility] [place] [address] Calcium [Mass/Vol] 8.5 mg/dL Normal 8.4-10.4 [facility] Comment on above: Performed By: #### V ANL, BMP3 ####[place] [address] [facility] [place] [address] CO2 [Moles/Vol] 25 mmol/L Normal 22-30 [facility] Comment on above: Performed By: #### V ANL, BMP3 ####[place] [address] [place] [address] Glucose [Mass/Vol] 131 mg/dL High 70-100 [facility] Comment on above: Performed By: #### V ANL, BMP3 ####[place] [address] [place] [address] Urea nitrogen [Mass/Vol] 52 mg/dL High 7-20 [facility] Comment on above: Performed By: #### V ANL, BMP3 ####[place] [place] [address] Creatinine [Mass/Vol] 3.08 mg/dL High 0.52-1.25 [facility] Comment on above: Performed By: #### V ANL, BMP3 ####[place] [address] [facility] [place] [address] GFR/1.73 sq M.predicted among blacks MDRD (S/P/Bld) [Vol rate/Area] 19.1 mL/min/{1.73_m2} Abnormal >60 [facility] Comment on above: Performed By: #### V ANL, BMP3 ####[place] [address] [facility] [place] [address] GFR/1.73 sq M.predicted among non-blacks MDRD (S/P/Bld) [Vol rate/Area] 16.5 mL/min/{1.73_m2} Abnormal >60 [facility] Comment on above: Result Comment: KDIG O guidelines provide the following GFR categories:Stage GFR(ml/min/1.73 m2) TermsG1 >=90 Normal or highG2 60-89 Mildly decreased*G3a 45-59 Mildly to moderately uvfzzdymoN4v 30-44 Moderately to severely decreasedG4 15-29 Severely [...] secretion. Performed By: #### [place] CHEN BMP3 ####[address] [place], [place] Potassium [Moles/Vol] 4.4 mmol/L Normal 3.5-5.1 [facility] Comment on above: Performed By: #### [place] CHEN BMP3 ####[address] [place], [place] Chloride [Moles/Vol] 94 mmol/L Low 98-107 [facility] Comment on above: Performed By: #### V GUSTAVO BMP3 ####[address] [place], [place] Sodium [Moles/Vol] 126 mmol/L Low 135-145 [facility] Comment on above: Performed By: #### V DWIGHTL BMP3 ####[address] [place], [place] Calcium [Mass/Vol] 8.3 mg/dL Low 8.4-10.4 [facility] Comment on above: Performed By: #### B MP3 ####[address], [place] Glucose [Mass/Vol] 122 mg/dL High 70-100 [facility] Comment on above: Performed By: #### B MP3 ####[address] [place], [place] Urea nitrogen [Mass/Vol] 50 mg/dL High 7-20 [facility] Comment on above: Performed By: #### B MP3 ####[address] [place], [place] Anion gap [Moles/Vol] 9 mmol/L Normal 3-13 [facility] Comment on above: Performed By: #### B MP3 ####[address] [place], [place] CO2 [Moles/Vol] 21 mmol/L Low 22-30 [facility] Comment on above: Performed By: #### B MP3 ####[address] [place], [place] Creatinine [Mass/Vol] 3.03 mg/dL High 0.52-1.25 [facility] Comment on above: Performed By: #### B MP3 ####[address] [place], [place] GFR/1.73 sq M.predicted among blacks MDRD (S/P/Bld) [Vol rate/Area] 19.4 mL/min/{1.73_m2} Abnormal >60 [facility] Comment on above: Performed By: #### B MP3 ####[address] [place] [address] [place], [place] GFR/1.73 sq M.predicted among non-blacks MDRD (S/P/Bld) [Vol rate/Area] 16.8 mL/min/{1.73_m2} Abnormal >60 [facility] Comment on above: Result Comment: KDIG O guidelines provide the following GFR categories:Stage GFR(ml/min/1.73 m2) TermsG1 >=90 Normal or highG2 60-89 Mildly decreased*G3a 45-59 Mildly to moderately pyrhxwsptN2l 30-44 Moderately to severely decreasedG4 15-29 Severely [...] creatinine secretion. Performed By: #### B MP3 ####[place] [address] [place] Calcium [Mass/Vol] 8.2 mg/dL Low 8.4-10.4 [facility] Comment on above: Performed By: #### C HUNG BMP3 ####[place] [address] [place] Anion gap [Moles/Vol] 7 mmol/L Normal 3-13 [facility] Comment on above: Performed By: #### C ORJULY BMP3 ####[facility] [employer] [place] [address] [place] CO2 [Moles/Vol] 23 mmol/L Normal 22-30 [facility] Comment on above: Performed By: #### Jennifer ORJULY, BMP3 ####[facility] [employer] [address] [place] Creatinine [Mass/Vol] 3.20 mg/dL High 0.52-1.25 [facility] Comment on above: Performed By: #### C ORJULY BMP3 ####[place] [address] [place] GFR/1.73 sq M.predicted among blacks MDRD (S/P/Bld) [Vol rate/Area] 18.2 mL/min/{1.73_m2} Abnormal >60 [facility] Comment on above: Performed By: #### Jennifer ORJULY, BMP3 ####[place] [address] [place] [address] GFR/1.73 sq M.predicted among non-blacks MDRD (S/P/Bld) [Vol rate/Area] 15.7 mL/min/{1.73_m2} Abnormal >60 [facility] Comment on above: Result Comment: KDIG O guidelines provide the following GFR categories:Stage GFR(ml/min/1.73 m2) TermsG1 >=90 Normal or highG2 60-89 Mildly decreased*G3a 45-59 Mildly to moderately klyafgyodN5l 30-44 Moderately to severely decreasedG4 15-29 Severely [...] secretion. Performed By: #### C HUNG BMP3 ####[address] [place] [place], [place] Glucose [Mass/Vol] 124 mg/dL High 70-100 [facility] Comment on above: Performed By: #### Jennifer PERSAUD BMP3 ####[address] [place] [place], [place] Urea nitrogen [Mass/Vol] 49 mg/dL High 7-20 [facility] Comment on above: Performed By: #### C HUNG BMP3 ####[place] [place] [place], [place] Chloride [Moles/Vol] 96 mmol/L Low 98-107 [facility] Comment on above: Performed By: #### B MP3 ####[place] [place] [address] [place], [place] Potassium [Moles/Vol] 4.6 mmol/L Normal 3.5-5.1 [facility] Comment on above: Performed By: #### B MP3 ####[place] [address] [place], [place] Sodium [Moles/Vol] 126 mmol/L Low 135-145 [facility] Comment on above: Performed By: #### B MP3 ####[facility] [address] [place], [place] Chloride [Moles/Vol] 96 mmol/L Low 98-107 [facility] Comment on above: Performed By: #### C HUNG, BMP3 ####[facility] [address] [place], [place] Potassium [Moles/Vol] 4.5 mmol/L Normal 3.5-5.1 [facility] Comment on above: Performed By: #### C HUNG BMP3 ####[facility] [place], [place] Sodium [Moles/Vol] 126 mmol/L Low 135-145 [facility] Comment on above: Performed By: #### Jennifer PERSAUD, BMP3 ####[facility] [place], [place] Basic Metabolic PanelOrdered By: Silver Nick on 06-27-2021 Anion gap [Moles/Vol] 7 mmol/L 3 - 13 mmol/L [employer] Work Phone: Calcium [Mass/Vol] 8.5 mg/dL 8.4 - 10. 4 mg/dL [employer] Work Phone: Chloride [Moles/Vol] 94 mmol/L Low 98 - 10 7 mmol/L [facility] Work Phone: CO2 [Moles/Vol] 25 mmol/L 22 - 30 mmol/L [facility] Work Phone: Creatinine [Mass/Vol] 3.08 mg/dL High 0.52 - 1.25 mg/dL [facility] Work Phone: EGFR IF NonAfrican [place] 16.5 mL/min Abnormal >60 [facility] Work Phone: GFR/1.73 sq M.predicted among blacks MDRD (S/P/Bld) [Vol rate/Area] 19.1 mL/min/{1.73_m2} Abnormal >60 [facility] Work Phone: [phone] Glucose [Mass/Vol] 131 mg/dL High 70 - 100 mg/dL [facility] Work Phone: [phone] Interpretation and review of laboratory results Abnormal [facility] Work Phone: [phone] Potassium [Moles/Vol] 4.4 mmol/L 3.5 - 5.1 mmol/L [facility] Work Phone: [phone] Sodium [Moles/Vol] 126 mmol/L Low 135 - 145 mmol/L [facility] Work Phone: [phone] Urea nitrogen (BldV) [Mass/Vol] 52 mg/dL High 7 - 20 mg/dL [facility] Work Phone: [phone] [facility] Work Phone: [phone] [facility] Work Phone: [phone] Basic Metabolic PanelOrdered By: Shashank Sellers on 06-27-2021 Anion gap [Moles/Vol] 9 mmol/L 3 - 13 mmol/L [facility] Work Phone: [phone] Anion gap [Moles/Vol] 7 mmol/L 3 - 13 mmol/L [facility] Work Phone: [phone] Calcium [Mass/Vol] 8.3 mg/dL Low 8.4 - 10. 4 mg/dL [facility] Work Phone: [phone] Calcium [Mass/Vol] 8.2 mg/dL Low 8.4 - 10. 4 mg/dL [facility] Work Phone: [phone] CO2 [Moles/Vol] 21 mmol/L Low 22 - 30 mmol/L [facility] Work Phone: [phone] CO2 [Moles/Vol] 23 mmol/L 22 - 30 mmol/L [facility] Work Phone: [phone] Creatinine [Mass/Vol] 3.03 mg/dL High 0.52 - 1.25 mg/dL [facility] Work Phone: [phone] Creatinine [Mass/Vol] 3.2 mg/dL High 0.52 - 1.25 mg/dL [facility] Work Phone: [phone] EGFR IF NonAfrican [place] 16.8 mL/min Abnormal >60 [facility] Work Phone: EGFR IF NonAfrican [place] 15.7 mL/min Abnormal >60 [facility] Work Phone: [...] 7 - 20 mg/dL [facility] Work [phone] CBC auto differentialOrdered By: Michelle Petty on 06-27-2021 Absolute Baso # 0.0 10*3/uL 0.0 - 0.2 10*3/uL [facility] Work Phone: [phone] Absolute Eos # 0.4 10*3/uL 0.0 - 0.5 10*3/uL [facility] Work Phone: [phone] Absolute Lymph # 0.7 10*3/uL Low 1.0 - 4.3 10*3/uL [facility] Work Phone: [phone] Absolute [place] # 0.7 10*3/uL 0.0 - 0.8 10*3/uL [facility] Work Phone: [phone] Absolute Neut # 4.3 10*3/uL 1.8 - 7.0 10*3/uL [facility] Work Phone: [phone] Basophils/100 WBC (Bld) 0.7 % 0.0 - 2.0 % [facility] Work Phone: [phone] Eosinophils/100 WBC (Bld) 6.6 % High 1.0 - 6.0 % [facility] Work Phone: [phone] Granulocytes/100 WBC (Bld) 69.9 % 40.0 - 80.0 % [facility] Work Phone: [phone] Hematocrit (Bld) [Volume fraction] 28.3 % Low 35.0 - 47.0 % [employer] Work Phone: [phone] Hemoglobin.gastrointes tinal spec 1 Ql (Stl) 9.1 g/dL Low 11.7 - 16.0 g/dL [employer] Work Phone: Interpretation and review of laboratory results Abnormal [employer] Work Phone: Lymphocytes/100 WBC (Bld) 11.2 % Low 20.0 - 40.0 % [employer] Work Phone: [phone] MCH (RBC) [Entitic mass] 24.2 pg Low 26.0 - 34.0 pg [employer] Work Phone: [phone] MCHC (RBC) [Mass/Vol] 32.2 % 32.0 - 36.0 % [facility] Work Phone: MCV (RBC) [Entitic vol] 75.2 fL Low 79.0 - 98.0 fL [facility] Work Phone: [phone] Monocytes/100 WBC (Bld) 11.6 % High 2.0 - 10.0 % [facility] Work Phone: [phone] Platelet distribution width (Bld) [Ratio] 24.1 % High 11.5 - 14.5 % [facility] Work Phone: [phone] Platelet mean volume (Bld) [Entitic vol] 8.1 fL 7.4 - 10.4 fL [facility] Work Phone: Platelets (Bld) [#/Vol] 168 10*3/uL 140 - 440 10*3/uL [facility] Work Phone: [phone] RBC (Bld) [#/Vol] 3.76 10*6/uL Low 3.80 - 5.2 0 10*6/uL [facility] Work Phone: [phone] WBC (Bld) [#/Vol] 6.1 10*3/uL 3.6 - 10.7 10*3/uL [facility] Work Phone: [phone] [facility] Work Phone: [phone] [facility] Work Phone: [phone] CORTISOL TOTALOrdered By: Devan Sterling on 06-27-2021 Cortisol 5.9 ug/dL [facility] Work Phone: [phone] [facility] Work Phone: [phone] [facility] Work Phone: [phone] CR Chest Portableon 06-27-20 21 CR Chest Portable Normal [facility] Cortisolon 06-27-2021 Cortisol 5.9 ug/dL Normal [facility] Comment on above: Result Comment: Befo re 10am 4.5-22.7 ug/dLAfter 5pm 1.7-14.1 ug/dL Performed By: #### C ORTL, BMP3 ####[employer] [place] [address] EKG 12 LeadOrdered By: Kathy Sterling on 06-27-2021 [facility] Work Phone: [phone] [facility] Work Phone: [phone] [facility] Work Phone: [phone] Glucose,Bedsideon 06-27-2021 Glucose [Mass/Vol] 174 mg/dL High 70-100 [facility] Comment on above: Result Comment: Test performed by glucose meter. Results may be 10%-15% lowerthan serum/plasma values. (CLIA ID [id number]) Performed By: #### B GLU ####[employer] [place] [address] Glucose [Mass/Vol] 145 mg/dL High 70-100 [facility] Comment on above: Result Comment: Test performed by glucose meter. Results may be 10%-15% lowerthan serum/plasma values. (CLIA ID [id number]) Performed By: #### B GLU ####[address] Glucose [Mass/Vol] 114 mg/dL High 70-100 [facility] Comment on above: Result Comment: Test performed by glucose meter. Results may be 10%-15% lowerthan serum/plasma values. (CLIA ID [id number]) Performed By: #### B GLU ####[address] Hemogram w/ Autodiffon 06-27 Abs Baso Cnt 0.0 10*3/uL Normal 0.0-0.2 [facility] Comment on above: Performed By: #### P HOS3, OSM, MG3, HEMDF ####[address] Abs Neutrophile Cnt 4.3 10*3/uL Normal 1.8-7.0 [facility] Comment on above: Performed By: #### P HOS3, OSM, MG3, HEMDF ####[address] Basophils/100 WBC (Bld) 0.7 % Normal 0.0-2.0 [facility] Comment on above: Performed By: #### P HOS3, OSM, MG3, HEMDF ####[address] Eosinophils (Bld) [#/Vol] 0.4 10*3/uL Normal 0.0-0.5 [facility] Comment on above: Performed By: #### P HOS3, OSM, MG3, HEMDF ####[address] Eosinophils/100 WBC (Bld) 6.6 % High 1.0-6.0 [facility] Comment on above: Performed By: #### P HOS3, OSM, MG3, HEMDF ####[address] Erythrocyte distribution width (RBC) [Ratio] 24.1 % High 11.5-14.5 [facility] Comment on above: Performed By: #### P HOS3, OSM, MG3, HEMDF ####[address] Granulocytes/100 WBC (Bld) 69.9 % Normal 40.0-80.0 [facility] Comment on above: Performed By: #### P HOS3, OSM, MG3, HEMDF ####[address] Hematocrit (Bld) [Volume fraction] 28.3 % Low 35.0-47.0 [facility] Comment on above: Performed By: #### P HOS3, OSM, MG3, HEMDF ####[address] Hemoglobin (Bld) [Mass/Vol] 9.1 g/dL Low 11.7-16.0 [facility] Comment on above: Performed By: #### P HOS3, OSM, MG3, HEMDF ####[address] Lymphocytes (Bld) [#/Vol] 0.7 10*3/uL Low 1.0-4.3 [facility] Comment on above: Performed By: #### P HOS3, OSM, MG3, HEMDF ####[address] Lymphocytes/100 WBC (Bld) 11.2 % Low 20.0-40.0 [facility] Comment on above: Performed By: #### P HOS3, OSM, MG3, HEMDF ####[address] MCH (RBC) [Entitic mass] 24.2 pg Low 26.0-34.0 [facility] Comment on above: Performed By: #### P HOS3, OSM, MG3, HEMDF ####[address] MCHC 32.2 % Normal 32.0-36.0 [facility] Comment on above: Performed By: #### P HOS3, OSM, MG3, HEMDF ####[address] MCV (RBC) [Entitic vol] 75.2 fL Low 79.0-98.0 [facility] Comment on above: Performed By: #### P HOS3, OSM, MG3, HEMDF ####[address] Monocytes (Bld) [#/Vol] 0.7 10*3/uL Normal 0.0-0.8 [facility] Comment on above: Performed By: #### P HOS3, OSM, MG3, HEMDF ####[address] Monocytes/100 WBC (Bld) 11.6 % High 2.0-10.0 [facility] Comment on above: Performed By: #### P HOS3, OSM, MG3, HEMDF ####[address] Platelet mean volume (Bld) [Entitic vol] 8.1 fL Normal 7.4-10.4 [facility] Comment on above: Performed By: #### P HOS3, OSM, MG3, HEMDF ####[address] Platelets (Bld) [#/Vol] 168 10*3/uL Normal 140-440 [facility] Comment on above: Performed By: #### P HOS3, OSM, MG3, HEMDF ####[address] RBC (Bld) [#/Vol] 3.76 10*6/uL Low 3.80-5.20 [facility] Comment on above: Performed By: #### P HOS3, OSM, MG3, HEMDF ####[place] [place] [address] WBC (Bld) [#/Vol] 6.1 10*3/uL Normal 3.6-10.7 [facility] Comment on above: Performed By: #### P HOS3, OSM, MG3, HEMDF ####[address] [place] [place] [address] Laboratory - Chemistry and C hemistry - challengeOrdered By: Shashank Sellers on 06-27-2021 Chloride [Moles/Vol] 96 mmol/L Low 98 - 10 7 mmol/L [facility] Work Phone: [phone] Sodium [Moles/Vol] 126 mmol/L Low 135 - 145 mmol/L [facility] Work Phone: [phone] Magnesiumon 06-27-2021 Magnesium [Mass/Vol] 2.0 mg/dL Normal 1.6-2.3 [facility] Comment on above: Performed By: #### P HOS3, OSM, MG3, HEMDF ####[address] [place] [address] MagnesiumOrdered By: Michelle lauren on 06-27-2021 Magnesium [Mass/Vol] 2.0 mg/dL 1.6 - 2 .3 mg/dL [facility] Work Phone: [phone] Panel InformationOrdered By: Lindsey Joyce on 06-27-2021 [facility] Work Phone: [phone] [facility] Work Phone: [phone] No Panel InformationOrdered By: Shashank Sellers on 06-27-2021 Interpretation and review of laboratory results Abnormal [facility] Work Phone: [phone] [facility] Work Phone: [phone] [facility] Work Phone: [phone] Panel InformationOrdered By: Michelle Petty on 06-27-2021 [facility] Work Phone: [phone] [facility] Work Phone: [phone] OsmolalityOrdered By: Lindsey Joyce on 06-27-2021 Serum Osmolality 282 mosm/kg 280 - 300 mosm/kg [facility] Work Phone: Osmolality,Serumon Osmolality,Serum 282 mosm/kg Normal 280-300 [facility] Comment on above: Performed By: #### P HOS3, OSM, MG3, HEMDF ####[address] [place] [address] POCT GlucoseOrdered By: Jessica Soni on 06-27-2021 Glucose [Mass/Vol] 174 mg/dL High 70 - 100 mg/dL [facility] Work Phone: Interpretation and review of laboratory results Abnormal [facility] Work Phone: [phone] [facility] Work Phone: [phone] [facility] Work Phone: [phone] POCT GlucoseOrdered By: Gennaro Parsons on 06-27-2021 Glucose [Mass/Vol] 145 mg/dL High 70 - 100 mg/dL [facility] Work Phone: Interpretation and review of laboratory results Abnormal [facility] Work Phone: [phone] [facility] Work Phone: [phone] [facility] Work Phone: Glucose [Mass/Vol] 114 mg/dL High 70 - 100 mg/dL [facility] Work Phone: Interpretation and review of laboratory results Abnormal [facility] Work Phone: [facility] Work Phone: [facility] Work Phone: Phosphoruson 06-27-2021 Phosphate [Mass/Vol] 4.8 mg/dL High 2.5-4.5 [facility] Comment on above: Performed By: #### P HOS3, OSM, MG3, HEMDF ####[id number] [place] [address] PhosphorusOrdered By: Michelle pearson on 06-27-2021 Interpretation and review of laboratory results Abnormal [facility] Work Phone: Phosphate [Mass/Vol] 4.8 mg/dL High 2.5 - 4 .5 mg/dL [facility] Work Phone: Vancomycinon 06-27-2021 Vancomycin 52.2 ug/mL High 15.0-20.0 [facility] Comment on above: Result Comment: . Performed By: #### V ANL, BMP3 ####[facility] [place], [place] Vancomycin, RandomOrdered By : Silver Nick on 06-27-2021 Interpretation and review of laboratory results Abnormal [facility] Work Phone: Vancomycin 52.2 ug/mL High 15.0 - 20.0 ug/mL [facility] Work Phone: [phone] [facility] Work Phone: [phone] [facility] Work Phone: [phone] XR CHEST PORTABLEOrdered By: Zack Barakat on 06-27-2021 [facility] Work Phone: [phone] [facility] Work Phone: [phone] [facility] Work Phone: [phone] Add On Lab TestOrdered By: Agusto Kirk on 06-26-2021 Add On Accepted [facility] Work Phone: [phone] [facility] Work Phone: [phone] [facility] Work Phone: [phone] Add on test from HISon 06-26 Add on test from HIS Accepted Normal [facility] Comment on above: Result Comment: Spec imen available & acceptable for analysis. Performed By: #### A DDON ####[address] [place], [place] Basic Metabolic Panelon 05-31 Anion gap [Moles/Vol] 7 mmol/L Normal 3-13 [facility] Comment on above: Performed By: #### U RIC3, BMP3, PCAL ####[facility] [place], [place] Calcium [Mass/Vol] 8.4 mg/dL Normal 8.4-10.4 [facility] Comment on above: Performed By: #### U RIC3, BMP3, PCAL ####[facility] [place], [place] CO2 [Moles/Vol] 25 mmol/L Normal 22-30 [facility] Comment on above: Performed By: #### U RIC3, BMP3, PCAL ####[facility] [employer] [id number] [place], [place] Glucose [Mass/Vol] 120 mg/dL High 70-100 [facility] Comment on above: Performed By: #### U RIC3, BMP3, PCAL ####[address] [place], [place] Urea nitrogen [Mass/Vol] 44 mg/dL High 7-20 [facility] Comment on above: Performed By: #### U RIC3, BMP3, PCAL ####[facility] [employer] [id number] [place], [place] Creatinine [Mass/Vol] 2.69 mg/dL High 0.52-1.25 [facility] Comment on above: Performed By: #### U RIC3, BMP3, PCAL ####[facility] [employer] [address] [place], [place] GFR/1.73 sq M.predicted among blacks MDRD (S/P/Bld) [Vol rate/Area] 22.5 mL/min/{1.73_m2} Abnormal >60 [facility] Comment on above: Performed By: #### U RIC3, BMP3, PCAL ####[facility] [employer] [id number] [place], [place] GFR/1.73 sq M.predicted among non-blacks MDRD (S/P/Bld) [Vol rate/Area] 19.4 mL/min/{1.73_m2} Abnormal >60 [facility] Comment on above: Result Comment: KDIG O guidelines provide the following GFR categories:Stage GFR(ml/min/1.73 m2) TermsG1 >=90 Normal or highG2 60-89 Mildly decreased*G3a 45-59 Mildly to moderately zhnraiyrjX1q 30-44 Moderately to severely decreasedG4 15-29 Severely [...] Performed By: #### U RIC3, BMP3, PCAL ####[address] [facility], [place] Potassium [Moles/Vol] 4.1 mmol/L Normal 3.5-5.1 [facility] Comment on above: Performed By: #### U RIC3, BMP3, PCAL ####[address] [place], [place] Sodium [Moles/Vol] 127 mmol/L Low 135-145 [facility] Comment on above: Performed By: #### U RIC3, BMP3, PCAL ####[address] [place], [place] Chloride [Moles/Vol] 95 mmol/L Low 98-107 [facility] Comment on above: Performed By: #### U RIC3, BMP3, PCAL ####[address] [place] [facility], [place] Anion gap [Moles/Vol] 8 mmol/L Normal 3-13 [facility] Comment on above: Performed By: #### B MP3 ####[address] [place], [place] Calcium [Mass/Vol] 8.2 mg/dL Low 8.4-10.4 [facility] Comment on above: Performed By: #### B MP3 ####[facility] [employer] [id number] [facility], [place] CO2 [Moles/Vol] 22 mmol/L Normal 22-30 [facility] Comment on above: Performed By: #### B MP3 ####[address] [place] [facility], [place] Creatinine [Mass/Vol] 2.46 mg/dL High 0.52-1.25 [facility] Comment on above: Performed By: #### B MP3 ####[facility] [address] [place] [address] GFR/1.73 sq M.predicted among blacks MDRD (S/P/Bld) [Vol rate/Area] 25.0 mL/min/{1.73_m2} Abnormal >60 [facility] Comment on above: Performed By: #### B MP3 ####[facility] [address] [place] [address] GFR/1.73 sq M.predicted among non-blacks MDRD (S/P/Bld) [Vol rate/Area] 21.6 mL/min/{1.73_m2} Abnormal >60 [facility] Comment on above: Result Comment: KDIG O guidelines provide the following GFR categories:Stage GFR(ml/min/1.73 m2) TermsG1 >=90 Normal or highG2 60-89 Mildly decreased*G3a 45-59 Mildly to moderately craqkfamoT2t 30-44 Moderately to severely decreasedG4 15-29 Severely [...] creatinine secretion. Performed By: #### B MP3 ####[employer] [address] [place] [address] Glucose [Mass/Vol] 194 mg/dL High 70-100 [facility] Comment on above: Performed By: #### B MP3 ####[employer] [address] [place] [address] Urea nitrogen [Mass/Vol] 43 mg/dL High 7-20 [facility] Comment on above: Performed By: #### B MP3 ####[facility] [place] [address] Chloride [Moles/Vol] 96 mmol/L Low 98-107 [facility] Comment on above: Performed By: #### B MP3 ####[id number] [place] [address] Potassium [Moles/Vol] 4.3 mmol/L Normal 3.5-5.1 [facility] Comment on above: Performed By: #### B MP3 ####[id number] [place] [address] Sodium [Moles/Vol] 126 mmol/L Low 135-145 [facility] Comment on above: Performed By: #### B MP3 ####[id number] [place], [place] Basic Metabolic PanelOrdered By: Shashank Sellers on 06-26-2021 Anion gap [Moles/Vol] 7 mmol/L 3 - 13 mmol/L [facility] Work Phone: Calcium [Mass/Vol] 8.4 mg/dL 8.4 - 10. 4 mg/dL [facility] Work Phone: Chloride [Moles/Vol] 95 mmol/L Low 98 - 10 7 mmol/L [facility] Work Phone: CO2 [Moles/Vol] 25 mmol/L 22 - 30 mmol/L [facility] Work Phone: Creatinine [Mass/Vol] 2.69 mg/dL High 0.52 - 1.25 mg/dL [facility] Work Phone: EGFR IF NonAfrican [place] 19.4 mL/min Abnormal >60 [facility] Work Phone: GFR/1.73 sq M.predicted among blacks MDRD (S/P/Bld) [Vol rate/Area] 22.5 mL/min/{1.73_m2} Abnormal >60 [facility] Work Phone: Glucose [Mass/Vol] 120 mg/dL High 70 - 100 mg/dL [facility] Work Phone: Interpretation and review of laboratory results Abnormal [facility] Work Phone: Potassium [Moles/Vol] 4.1 mmol/L 3.5 - 5.1 mmol/L [facility] Work Phone: Sodium [Moles/Vol] 127 mmol/L Low 135 - 145 mmol/L [facility] Work Phone: Urea nitrogen (BldV) [Mass/Vol] 44 mg/dL High 7 - 20 mg/dL [facility] Work Phone: [facility] Work Phone: [facility] Work Phone: CBC auto differentialOrdered By: Michelle Petty on 06-26-2021 Hematocrit (Bld) [Volume fraction] 30.3 % Low 35.0 - 47.0 % [facility] Work Phone: Hemoglobin.gastrointes tinal spec 1 Ql (Stl) 9.7 g/dL Low 11.7 - 16.0 g/dL [facility] Work Phone: Interpretation and review of laboratory results Abnormal [facility] Work Phone: MCH (RBC) [Entitic mass] 23.9 pg Low 26.0 - 34.0 pg [facility] Work Phone: MCHC (RBC) [Mass/Vol] 31.9 % Low 32.0 - 36.0 % [facility] Work Phone: MCV (RBC) [Entitic vol] 75.0 fL Low 79.0 - 98.0 fL [facility] Work Phone: Platelet distribution width (Bld) [Ratio] 24.6 % High 11.5 - 14.5 % [facility] Work Phone: Platelet mean volume (Bld) [Entitic vol] 7.9 fL 7.4 - 10.4 fL [facility] Work Phone: Platelets (Bld) [#/Vol] 140 10*3/uL 140 - 440 10*3/uL [facility] Work Phone: RBC (Bld) [#/Vol] 4.04 10*6/uL 3.80 - 5.2 0 10*6/uL [facility] Work Phone: [phone] WBC (Bld) [#/Vol] 6.1 10*3/uL 3.6 - 10.7 10*3/uL [facility] Work Phone: [phone] [facility] Work Phone: [phone] [facility] Work Phone: [phone] CREATININE, RANDOM URINEOrde red By: Lindsey Joyce on 06-26-2021 Creatinine (U) [Mass/Vol] 62.6 mg/dL No Range [facility] Work Phone: [phone] Complete Urinalysison 2020 Appearance (U) Turbid Abnormal Clear [facility] Comment on above: Result Comment: . Performed By: #### N AURR, UNURR, CUA2, CRTUR ####[facility] [address] [place], [place] #### OSMUR ####[facility] [address] [place] [address] Bacteria Moderate Abnormal Negative [facility] Comment on above: Result Comment: . Performed By: #### N AURR, UNURR, CUA2, CRTUR ####[facility] [address] [place], [place] #### OSMUR ####[facility] [address] [place] [address] Bilirubin,Urine Negative Normal Negative [facility] Comment on above: Result Comment: . Performed By: #### N AURR, UNURR, CUA2, CRTUR ####[facility] [address] [place] [address]#### OSMUR ####[facility] [facility] [address] [place] [place] [address] Cast, Hyaline Negative Normal Negative [facility] Comment on above: Result Comment: . Performed By: #### N AURR, UNURR, CUA2, CRTUR ####[facility] [address] [place] [address]#### OSMUR ####[facility] [address] [place] [address] Color (U) Yellow Normal Lt. Yellow [facility] Comment on above: Result Comment: . Performed By: #### N AURR, UNURR, CUA2, CRTUR ####[facility] [address] [facility] [place] #### OSMUR ####[facility] [address] [place] [address] Glucose Ql (U) Normal Normal Normal (<70) [facility] Comment on above: Result Comment: . Performed By: #### N AURR, UNURR, CUA2, CRTUR ####[facility] [address] [facility] [address] [place] #### OSMUR ####[facility] [address] [place] [address] Ketone,Urine Negative Normal Negative [facility] Comment on above: Result Comment: . Performed By: #### N AURR, UNURR, CUA2, CRTUR ####[facility] [address] [facility] [place] #### OSMUR ####[facility] [address] [place] [address] Leukocytes,Urine Negative Normal Negative [facility] Comment on above: Result Comment: . Performed By: #### N AURR, UNURR, CUA2, CRTUR ####[facility] [address] [facility] [place] #### OSMUR ####[facility] [address] [place] [address] Mucous Threads Few Normal Negative [facility] Comment on above: Result Comment: . Performed By: #### N AURR, UNURR, CUA2, CRTUR ####[facility] [address] [facility] [place] #### OSMUR ####[facility] [address] [place] [address] Nitrites,Urine Negative Normal Negative [facility] Comment on above: Result Comment: . Performed By: #### N AURR, UNURR, CUA2, CRTUR ####[facility] [address] [facility] [place] #### OSMUR ####[facility] [place] [address] Occult Blood,Urine Negative Normal Negative [facility] Comment on above: Result Comment: . Performed By: #### N AURR, UNURR, CUA2, CRTUR ####[place] [address] [facility] [place] #### OSMUR ####[facility] [place] [address] pH,Urine 5.0 Normal 5.0-8.0 [facility] Comment on above: Result Comment: . Performed By: #### N AURR, UNURR, CUA2, CRTUR ####[place] [address] [facility] [place] #### OSMUR ####[place] [address] [place] [address] Protein (U) [Mass/Vol] 20 mg/dL Abnormal Negative [facility] Comment on above: Result Comment: . Performed By: #### N AURR, UNURR, CUA2, CRTUR ####[place] [address] [facility] [place] #### OSMUR ####[facility] [place] [address] RBC, Urine 3 - 5 Abnormal 0-2 [facility] Comment on above: Result Comment: . Performed By: #### N AURR, UNURR, CUA2, CRTUR ####[place] [address] [facility] [place] #### OSMUR ####[facility] [place] [address] Specific [place],Urine 1.007 Normal 1.005 - 1.030 [facility] Comment on above: Result Comment: . Performed By: #### N AURR, UNURR, CUA2, CRTUR ####[place] [address] [facility] [place] #### OSMUR ####[place] [address] [place] [address] Squamous Epithelial 6 - 10 Abnormal 3-5 [facility] Comment on above: Result Comment: . Performed By: #### N AURR, UNURR, CUA2, CRTUR ####[facility] [address] [place] [facility] [place] [address]#### OSMUR ####[facility] [place] [facility] [place] [address] Urobilinogen,Urine Normal Normal Normal (0-1) [facility] Comment on above: Result Comment: . Performed By: #### N AURR, UNURR, CUA2, CRTUR ####[place] [address] [place] [address]#### OSMUR ####[facility] [place] [place] [address] WBC, Urine 3 - 5 Normal 0-5 [facility] Comment on above: Result Comment: . Performed By: #### N AURR, UNURR, CUA2, CRTUR ####[facility] [employer] [address] [address]#### OSMUR ####[address] [place] [place] [address] Creatinine, Ur Randomon 05-31 Creatinine, Ur Random 62.6 mg/dL Normal No Range [facility] Comment on above: Performed By: #### N AURR, UNURR, CUA2, CRTUR ####[facility] [employer] [address] [address]#### OSMUR ####[address] [place] [facility] [place] [address] EKG 12 LeadOrdered By: Kathy Sterling on 06-26-2021 [facility] Work Phone: [facility] Work Phone: [facility] Work Phone: Glucose,Bedsideon 06-26-2021 Glucose [Mass/Vol] 208 mg/dL High 70-100 [facility] Comment on above: Result Comment: Test performed by glucose meter. Results may be 10%-15% lowerthan serum/plasma values. (CLIA ID [id number]) Performed By: #### B GLU ####[facility] [address], [place] Glucose [Mass/Vol] 157 mg/dL High 70-100 [facility] Comment on above: Result Comment: Test performed by glucose meter. Results may be 10%-15% lowerthan serum/plasma values. (CLIA ID [id number]) Performed By: #### B GLU ####[place] [address] [place], [place] Glucose [Mass/Vol] 140 mg/dL High 70-100 [facility] Comment on above: Result Comment: Test performed by glucose meter. Results may be 10%-15% lowerthan serum/plasma values. (CLIA ID [id number]) Performed By: #### B GLU ####[address] Glucose [Mass/Vol] 139 mg/dL High 70-100 [facility] Comment on above: Result Comment: Test performed by glucose meter. Results may be 10%-15% lowerthan serum/plasma values. (CLIA ID [id number]) Performed By: #### B GLU ####[address] Hemogram w/ Autodiffon 06-26 Erythrocyte distribution width (RBC) [Ratio] 24.6 % High 11.5-14.5 [facility] Comment on above: Performed By: #### M DIFF, MG3, HEMDF, PHOS3, LFT3 ####[address] Hematocrit (Bld) [Volume fraction] 30.3 % Low 35.0-47.0 [facility] Comment on above: Performed By: #### M DIFF, MG3, HEMDF, PHOS3, LFT3 ####[address] Hemoglobin (Bld) [Mass/Vol] 9.7 g/dL Low 11.7-16.0 [facility] Comment on above: Performed By: #### M DIFF, MG3, HEMDF, PHOS3, LFT3 ####[address] MCH (RBC) [Entitic mass] 23.9 pg Low 26.0-34.0 [facility] Comment on above: Performed By: #### M DIFF, MG3, HEMDF, PHOS3, LFT3 ####[place] [address] [place], [place] MCHC 31.9 % Low 32.0-36.0 [facility] Comment on above: Performed By: #### M DIFF, MG3, HEMDF, PHOS3, LFT3 ####[address] MCV (RBC) [Entitic vol] 75.0 fL Low 79.0-98.0 [facility] Comment on above: Performed By: #### M DIFF, MG3, HEMDF, PHOS3, LFT3 ####[place] [address] [place], [place] Platelet mean volume (Bld) [Entitic vol] 7.9 fL Normal 7.4-10.4 [facility] Comment on above: Performed By: #### M DIFF, MG3, HEMDF, PHOS3, LFT3 ####[place] [address] [place], [place] Platelets (Bld) [#/Vol] 140 10*3/uL Normal 140-440 [facility] Comment on above: Performed By: #### M DIFF, MG3, HEMDF, PHOS3, LFT3 ####[place] [address] [place], [place] RBC (Bld) [#/Vol] 4.04 10*6/uL Normal 3.80-5.20 [facility] Comment on above: Performed By: #### M DIFF, MG3, HEMDF, PHOS3, LFT3 ####[address] WBC (Bld) [#/Vol] 6.1 10*3/uL Normal 3.6-10.7 [facility] Comment on above: Performed By: #### M DIFF, MG3, HEMDF, PHOS3, LFT3 ####[place] [address] [facility] [place] Hepatic Functionon 1 ALP [Catalytic activity/Vol] 111 U/L Normal 38-126 [facility] Comment on above: Performed By: #### M DIFF, MG3, HEMDF, PHOS3, LFT3 ####[place] [address] [place] ALT [Catalytic activity/Vol] 42 U/L High 0-34 [facility] Comment on above: Result Comment: The ALT test is performed by an updated assay method.Please note that the reference intervals have beenchanged and are now sex specific. Performed By: #### M DIFF, MG3, HEMDF, PHOS3, LFT3 ####[place] [address] [place], [place] AST [Catalytic activity/Vol] 31 U/L Normal 15-46 [facility] Comment on above: Performed By: #### M DIFF, MG3, HEMDF, PHOS3, LFT3 ####[place] [address] [facility] [place] Bilirubin [Mass/Vol] 0.4 mg/dL Normal 0.2-1.3 [facility] Comment on above: Performed By: #### M DIFF, MG3, HEMDF, PHOS3, LFT3 ####[place] [address] [facility] Bilirubin.indirect [Mass/Vol] 0.0 mg/dL Normal 0.0-0.3 [facility] Comment on above: Performed By: #### M DIFF, MG3, HEMDF, PHOS3, LFT3 ####[place] [address] [facility] [place] Protein [Mass/Vol] 5.7 g/dL Low 6.3-8.2 [facility] Comment on above: Performed By: #### M DIFF, MG3, HEMDF, PHOS3, LFT3 ####[place] [address] [facility] [place] Albumin [Mass/Vol] 2.7 g/dL Low 3.5-5.0 [facility] Comment on above: Performed By: #### M DIFF, MG3, HEMDF, PHOS3, LFT3 ####[address] Magnesiumon 06-26-2021 Magnesium [Mass/Vol] 1.9 mg/dL Normal 1.6-2.3 [facility] Comment on above: Performed By: #### M DIFF, MG3, HEMDF, PHOS3, LFT3 ####[place] [address] [place], [place] Manual Diffon 06-26-2021 Abs Baso Cnt 0.0 10*3/uL Normal 0.0-0.2 [facility] Comment on above: Performed By: #### M DIFF, MG3, HEMDF, PHOS3, LFT3 ####[address] Abs Eosin Cnt 0.1 10*3/uL Normal 0.0-0.5 [facility] Comment on above: Performed By: #### M DIFF, MG3, HEMDF, PHOS3, LFT3 ####[address] Abs Lymph Cnt 0.8 10*3/uL Low 1.1-4.5 [facility] Comment on above: Performed By: #### M DIFF, MG3, HEMDF, PHOS3, LFT3 ####[address] Abs Monocyte Cnt 0.4 10*3/uL Normal 0.2-1.1 [facility] Comment on above: Performed By: #### M DIFF, MG3, HEMDF, PHOS3, LFT3 ####[address] Abs Neutrophile Cnt 4.7 10*3/uL Normal 2.2-8.2 [facility] Comment on above: Performed By: #### M DIFF, MG3, HEMDF, PHOS3, LFT3 ####[place] [address] [place], [place] Bands 4 % High 0-3 [facility] Comment on above: Performed By: #### M DIFF, MG3, HEMDF, PHOS3, LFT3 ####[place] [address] [place], [place] Basophils 0 % Normal 0-2 [facility] Comment on above: Performed By: #### M DIFF, MG3, HEMDF, PHOS3, LFT3 ####[place] [address] [place], [place] Cells counted 100 Normal [facility] Comment on above: Performed By: #### M DIFF, MG3, HEMDF, PHOS3, LFT3 ####[place] [address] [place], [place] Eosinophils 1 % Normal 1-6 [facility] Comment on above: Performed By: #### M DIFF, MG3, HEMDF, PHOS3, LFT3 ####[place] [address] [place], [place] Lymphocytes 13 % Low 20-40 [facility] Comment on above: Performed By: #### M DIFF, MG3, HEMDF, PHOS3, LFT3 ####[place] [address] [place], [place] Metamyelocytes 2 % Abnormal <1 [facility] Comment on above: Performed By: #### M DIFF, MG3, HEMDF, PHOS3, LFT3 ####[place] [address] [place], [place] Monocytes 7 % Normal 2-10 [facility] Comment on above: Performed By: #### M DIFF, MG3, HEMDF, PHOS3, LFT3 ####[place] [address] [place], [place] RBC Morphology See Prev Normal [facility] Comment on above: Performed By: #### M DIFF, MG3, HEMDF, PHOS3, LFT3 ####[place] [address] [place], [place] Seg Neutrophils 73 % Normal 40-80 [facility] Comment on above: Performed By: #### M DIFF, MG3, HEMDF, PHOS3, LFT3 ####[facility] [employer] [address] [place] [address] Manual DifferentialOrdered B y: Michelle Petty on 06-26-2021 Absolute Baso # 0.0 10*3/uL 0.0 - 0.2 10*3/uL [facility] Work Phone: [phone] Absolute Eos # 0.1 10*3/uL 0.0 - 0.5 10*3/uL [facility] Work Phone: [phone] Absolute Lymph # 0.8 10*3/uL Low 1.1 - 4.5 10*3/uL [facility] Work Phone: [phone] Absolute [place] # 0.4 10*3/uL 0.2 - 1.1 10*3/uL [...] [facility] Work Phone: [phone] [facility] Work Phone: [phone] Panel InformationOrdered By: Lindsey Joyce on 06-26-2021 [facility] Work Phone: [phone] [facility] Work Phone: [phone] Osmolality, UrineOrdered By: Lindsey Joyce on 06-26-2021 Interpretation and review of laboratory results Abnormal [facility] Work Phone: [phone] Osmolality, Ur 178 mosm/kg Low 300 - 1000 mosm/kg [facility] Work Phone: [phone] [facility] Work Phone: [phone] [facility] Work Phone: [phone] Osmolality,Urineon Osmolality,Urine 178 mosm/kg Low 300-1000 [facility] Comment on above: Performed By: #### N AURR, UNURR, CUA2, CRTUR ####[address] [place] [address]#### OSMUR ####[employer] [place] [address] POCT GlucoseOrdered By: Gennaro Parsons on 06-26-2021 Glucose [Mass/Vol] 208 mg/dL High 70 - 100 mg/dL [facility] Work Phone: [phone] Interpretation and review of laboratory results Abnormal [facility] Work Phone: [phone] [facility] Work Phone: 1 [facility] Work Phone: 1 POCT GlucoseOrdered By: Jessica Soni on 06-26-2021 Glucose [Mass/Vol] 157 mg/dL High 70 - 100 mg/dL [facility] Work Phone: [phone] Interpretation and review of laboratory results Abnormal [facility] Work Phone: [phone] [facility] Work Phone: [phone] [facility] Work Phone: [phone] Glucose [Mass/Vol] 140 mg/dL High 70 - 100 mg/dL [facility] Work Phone: [phone] Interpretation and review of laboratory results Abnormal [facility] Work Phone: [phone] [facility] Work Phone: [phone] [facility] Work Phone: 1 Glucose [Mass/Vol] 139 mg/dL High 70 - 100 mg/dL [facility] Work Phone: [phone] Interpretation and review of laboratory results Abnormal [facility] Work Phone: 1 [facility] Work Phone: 1 [facility] Work Phone: 1 Phosphoruson 06-26-2021 Phosphate [Mass/Vol] 3.8 mg/dL Normal 2.5-4.5 [facility] Comment on above: Performed By: #### M DIFF, MG3, HEMDF, PHOS3, LFT3 ####[facility] [employer] [address] [address] Procalcitoninon 06-26-2021 Procalcitonin 0.32 ng/mL High 0.00-0.09 [facility] Comment on above: Performed By: #### U RIC3, BMP3, PCAL ####[facility] [employer] [address] Interpretation See Below Normal [facility] Comment on above: Result Comment: PCT <0.50 = Low risk of severe sepsis and/or septic shock.PCT >2.00 = High risk of severe sepsis and/or septic shock. Performed By: #### U RIC3, BMP3, PCAL ####[facility] [employer] [address] ProcalcitoninOrdered By: Anthony Sellers on 06-26-2021 Interpretation See Below [facility] Work Phone: [phone] Interpretation and review of laboratory results Abnormal [facility] Work Phone: 1 Procalcitonin 0.32 ng/mL High 0.00 - 0.09 ng/mL [facility] Work Phone: 1 [facility] Work Phone: 1 [facility] Work Phone: 1 Sodium, Ur Randomon 06-26-20 21 Sodium, Ur Random < 5 Low 30-90 [facility] Comment on above: Performed By: #### N AURR, UNURR, CUA2, CRTUR ####[address] [place] [address]#### OSMUR ####[employer] [address] [place] [address] Sodium, Urine, RandomOrdered By: Lindsey Joyce on 06-26-2021 Interpretation and review of laboratory results Abnormal [facility] Work Phone: [phone] Sodium (U) [Moles/Vol] mmol/L Low 30 - 90 mmol/L [facility] Work Phone: [phone] US RETROPERITONEAL COMPLETEO rdered By: Monae Huang on 06-26-2021 [facility] Work Phone: [phone] [facility] Work Phone: [phone] [facility] Work Phone: [phone] US Retroperitoneal Completeo n 06-26-2021 US Retroperitoneal Complete Normal [facility] Urea Nitrogen,Ur Randomon Urea nitrogen [Mass/Vol] 276 mg/dL Normal No Range [facility] Comment on above: Performed By: #### N AURR, UNURR, CUA2, CRTUR ####[address] [place], [place] #### OSMUR ####[facility] [employer] [address] [place] [address] Urea nitrogen, urineOrdered By: Lindsey Joyce on 06-26-2021 Urea Nitrogen, Random Urine 276 mg/dL No Range [facility] Work Phone: Uric Acidon 06-26-2021 Urate [Mass/Vol] 9.4 mg/dL High 2.5-8.5 [facility] Comment on above: Performed By: #### U RIC3, BMP3, PCAL ####[email or web address] [address] [place] [address] Uric AcidOrdered By: Shashank snowden on 06-26-2021 Interpretation and review of laboratory results Abnormal [facility] Work Phone: Urate [Mass/Vol] 9.4 mg/dL High 2.5 - 8.5 mg/dL [facility] Work Phone: [facility] Work Phone: [phone] [facility] Work Phone: [phone] UrinalysisOrdered By: Lindsey Joyce on 06-26-2021 Appearance (U) Turbid Abnormal Clear NA [facility] Work Phone: [phone] Bacteria, UA Moderate Abnormal Negative /[HPF] [facility] Work Phone: [phone] Bilirubin Urine Negative Negative mg/dL [facility] Work Phone: [phone] Color (U) Yellow Lt. Yellow NA [facility] Work Phone: [phone] Glucose, Ur Normal Normal (<70) mg/dL [facility] Work Phone: [phone] Hyaline Casts, UA Negative Negative /[LPF] [facility] Work Phone: [phone] Interpretation and review of laboratory results Abnormal [facility] Work Phone: [phone] Ketones Ql (U) Negative Negative mg/dL [facility] Work Phone: [phone] LEUKOCYTES, UA Negative Negative [place]/uL [facility] Work Phone: [phone] Mucous Threads Few Negative /[LPF] [facility] Work Phone: [phone] Nitrite, Urine Negative Negative NA [facility] Work Phone: [phone] Occult Blood,Urine Negative Negative mg/dL [facility] Work Phone: [phone] pH (U) 5.0 [pH] [facility] Work Phone: [phone] RBC, UA 3-5 Abnormal 0 - 2 /[HPF] [facility] Work Phone: [phone] Specific [place], Urine 1.007 [facility] Work Phone: [phone] Squam Epithel, UA 6-10 Abnormal 3 - 5 /[HPF] [facility] Work Phone: [phone] Total Protein, Urine 20 mg/dL Abnormal Negative [facility] Work Phone: [phone] Urobilinogen, Urine Normal Normal ( 0-1) mg/dL [facility] Work Phone: [phone] WBC, UA 3-5 0 - 5 /[HPF] [facility] Work Phone: [phone] [facility] Work Phone: [phone] [facility] Work Phone: [phone] Vancomycin Troughon 06-26-20 Vancomycin Trough 58.2 ug/mL High 15.0-20.0 [facility] Comment on above: Result Comment: . Performed By: #### V ANCT ####[address] Vancomycin, TroughOrdered By : Willie Andrade on 06-26-2021 Interpretation and review of laboratory results Abnormal [facility] Work Phone: [phone] Vancomycin Tr 58.2 ug/mL High 15.0 - 20.0 ug/mL [facility] Work Phone: [phone] [facility] Work Phone: [phone] [facility] Work Phone: [phone] Arterial Blood Gaseson 06-25 CO2 [Moles/Vol] 26.4 mmol/L Normal 23.0-27.0 [facility] Comment on above: Performed By: #### A BG ####[address] HCO3 (Bld) [Moles/Vol] 25.1 mmol/L High 21.0-25.0 [facility] Comment on above: Performed By: #### A BG ####[address] Hemoglobin (Bld) [Mass/Vol] 9.9 g/dL Normal ScreenOnly [facility] Comment on above: Performed By: #### A BG ####[address] Oxygen (Bld) [Partial pressure] 100.6 mm[Hg] High 80.0-100.0 [facility] Comment on above: Performed By: #### A BG ####[address] Oxygen saturation in Blood 97.5 % Normal 95.0-100.0 [facility] Comment on above: Performed By: #### A BG ####[address] pCO2 40.7 mm[Hg] Normal 35.0-45.0 [facility] Comment on above: Performed By: #### A BG ####[facility] [employer] [id number] [place], [place] pH 7.408 Normal 7.350-7.450 [facility] Comment on above: Performed By: #### A BG ####[facility] [employer] [id number] [place], [place] Std Base Excess 0.4 mmol/L Normal -3.0-3.0 [facility] Comment on above: Performed By: #### A BG ####[facility] [employer] [id number] [place], [place] FIO2 No data Normal [facility] Comment on above: Performed By: #### A BG ####[facility] [employer] [id number] [place], [place] Basic Metabolic PanelOrdered By: Shashank Sellers on 06-25-2021 Anion gap [Moles/Vol] 8 mmol/L 3 - 13 mmol/L [facility] Work Phone: Calcium [Mass/Vol] 8.2 mg/dL Low 8.4 - 10. 4 mg/dL [facility] Work Phone: Chloride [Moles/Vol] 96 mmol/L Low 98 - 10 7 mmol/L [facility] Work Phone: CO2 [Moles/Vol] 22 mmol/L 22 - 30 mmol/L [facility] Work Phone: Creatinine [Mass/Vol] 2.46 mg/dL High 0.52 - 1.25 mg/dL [facility] Work Phone: EGFR IF NonAfrican [place] 21.6 mL/min Abnormal >60 [facility] Work Phone: GFR/1.73 sq M.predicted among blacks MDRD (S/P/Bld) [Vol rate/Area] 25.0 mL/min/{1.73_m2} Abnormal >60 [facility] Work Phone: Glucose [Mass/Vol] 194 mg/dL High 70 - 100 mg/dL [facility] Work Phone: [phone] Interpretation and review of laboratory results Abnormal [facility] Work Phone: [phone] Potassium [Moles/Vol] 4.3 mmol/L 3.5 - 5.1 mmol/L [facility] Work Phone: [phone] Sodium [Moles/Vol] 126 mmol/L Low 135 - 145 mmol/L [facility] Work Phone: [phone] Urea nitrogen (BldV) [Mass/Vol] 43 mg/dL High 7 - 20 mg/dL [facility] Work Phone: [phone] [facility] Work Phone: [phone] [facility] Work Phone: [phone] Basic Metabolic Panelon - Calcium [Mass/Vol] 8.6 mg/dL Normal 8.4-10.4 [facility] Comment on above: Performed By: #### B MP3 ####[facility] Exposed [employer]oc[employer] [id number] [place] [address] Anion gap [Moles/Vol] 8 mmol/L Normal 3-13 [facility] Comment on above: Performed By: #### B MP3 ####[facility] [employer] [address] [place] [address] CO2 [Moles/Vol] 23 mmol/L Normal 22-30 [facility] Comment on above: Performed By: #### B MP3 ####[facility] [employer] [address] [place] [address] Creatinine [Mass/Vol] 2.25 mg/dL High 0.52-1.25 [facility] Comment on above: Performed By: #### B MP3 ####[facility] [employer] [address] [place] [address] GFR/1.73 sq M.predicted among blacks MDRD (S/P/Bld) [Vol rate/Area] 27.9 mL/min/{1.73_m2} Abnormal >60 [facility] Comment on above: Performed By: #### B MP3 ####[address] [place] [address] GFR/1.73 sq M.predicted among non-blacks MDRD (S/P/Bld) [Vol rate/Area] 24.0 mL/min/{1.73_m2} Abnormal >60 [facility] Comment on above: Result Comment: KDIG O guidelines provide the following GFR categories:Stage GFR(ml/min/1.73 m2) TermsG1 >=90 Normal or highG2 60-89 Mildly decreased*G3a 45-59 Mildly to moderately dzvfcohllJ8o 30-44 Moderately to severely decreasedG4 15-29 Severely [...] creatinine secretion. Performed By: #### B MP3 ####[address] [place], [place] Glucose [Mass/Vol] 119 mg/dL High 70-100 [facility] Comment on above: Performed By: #### B MP3 ####[address] Urea nitrogen [Mass/Vol] 40 mg/dL High 7-20 [facility] Comment on above: Performed By: #### B MP3 ####[address] [place], [place] Chloride [Moles/Vol] 94 mmol/L Low 98-107 [facility] Comment on above: Performed By: #### B MP3 ####[address] [place], [place] Potassium [Moles/Vol] 4.7 mmol/L Normal 3.5-5.1 [facility] Comment on above: Performed By: #### B MP3 ####[address] [place], [place] Sodium [Moles/Vol] 124 mmol/L Low 135-145 [facility] Comment on above: Performed By: #### B MP3 ####[address] [place], [place] Calcium [Mass/Vol] 8.7 mg/dL Normal 8.4-10.4 [facility] Comment on above: Performed By: #### H EMDF, MG3, BMP3M, PHOS3, MDIFF ####[address] [place], [place] Glucose [Mass/Vol] 129 mg/dL High 70-100 [facility] Comment on above: Performed By: #### H EMDF, MG3, BMP3M, PHOS3, MDIFF ####[address] [place], [place] Urea nitrogen [Mass/Vol] 37 mg/dL High 7-20 [facility] Comment on above: Performed By: #### H EMDF, MG3, BMP3M, PHOS3, MDIFF ####[address] [place], [place] Anion gap [Moles/Vol] 9 mmol/L Normal 3-13 [facility] Comment on above: Performed By: #### H EMDF, MG3, BMP3M, PHOS3, MDIFF ####[address] [place], [place] CO2 [Moles/Vol] 20 mmol/L Low 22-30 [facility] Comment on above: Performed By: #### H EMDF, MG3, BMP3M, PHOS3, MDIFF ####[address] [place], [place] Creatinine [Mass/Vol] 1.98 mg/dL High 0.52-1.25 [facility] Comment on above: Performed By: #### H EMDF, MG3, BMP3M, PHOS3, MDIFF ####[address] [place], [place] GFR/1.73 sq M.predicted among blacks MDRD (S/P/Bld) [Vol rate/Area] 32.5 mL/min/{1.73_m2} Abnormal >60 [facility] Comment on above: Performed By: #### H EMDF, MG3, BMP3M PHOMD WoodrowIFF ####[facility] [employer] [address] [place] [address] GFR/1.73 sq M.predicted among non-blacks MDRD (S/P/Bld) [Vol rate/Area] 28.1 mL/min/{1.73_m2} Abnormal >60 [facility] Comment on above: Result Comment: KDIG O guidelines provide the following GFR categories:Stage GFR(ml/min/1.73 m2) TermsG1 >=90 Normal or highG2 60-89 Mildly decreased*G3a 45-59 Mildly to moderately xgplmbmesC1o 30-44 Moderately to severely decreasedG4 15-29 Severely [...] #### H EMDF, MG3, BMP3M PHOWoodrow MDIFF ####[facility] [employer] [address] [place] [address] Potassium [Moles/Vol] 4.2 mmol/L Normal 3.5-5.1 [facility] Comment on above: Performed By: #### H EMDF, MG3, BMP3MELVIN MDIFF ####[facility] [employer] [address] [place] [address] Chloride [Moles/Vol] 96 mmol/L Low 98-107 [facility] Comment on above: Performed By: #### H EMDF, MG3, BMP3M, PHOWoodrow, MDIFF ####[facility] [employer] [address] [place] [address] Sodium [Moles/Vol] 125 mmol/L Low 135-145 [facility] [facility] Comment on above: Performed By: #### H EMDF, MG3, BMP3M, MD ELVINIFF ####[facility] [address] [place] [address] Basic Metabolic PanelOrdered By: Checo Kirk on 06-25-2021 Anion gap [Moles/Vol] 8 mmol/L 3 - 13 mmol/L [facility] Work Phone: Calcium [Mass/Vol] 8.6 mg/dL 8.4 - 10. 4 mg/dL [facility] Work Phone: [phone] Chloride [Moles/Vol] 94 mmol/L Low 98 - 10 7 mmol/L [facility] Work Phone: [phone] CO2 [Moles/Vol] 23 mmol/L 22 - 30 mmol/L [facility] Work Phone: [phone] Creatinine [Mass/Vol] 2.25 mg/dL High 0.52 - 1.25 mg/dL [facility] Work Phone: [phone] EGFR IF NonAfrican [place] 24.0 mL/min Abnormal >60 [facility] Work Phone: GFR/1.73 sq M.predicted among blacks MDRD (S/P/Bld) [Vol rate/Area] 27.9 mL/min/{1.73_m2} Abnormal >60 [facility] Work Phone: Glucose [Mass/Vol] 119 mg/dL High 70 - 100 mg/dL [facility] Work Phone: [phone] Interpretation and review of laboratory results Abnormal [facility] Work Phone: Potassium [Moles/Vol] 4.7 mmol/L 3.5 - 5.1 mmol/L [facility] Work Phone: [phone] Sodium [Moles/Vol] 124 mmol/L Low 135 - 145 mmol/L [facility] Work Phone: Urea nitrogen (BldV) [Mass/Vol] 40 mg/dL High 7 - 20 mg/dL [facility] Work Phone: [facility] Work Phone: [phone] [facility] Work Phone: [phone] Basic Metabolic Panel w/ Ref kaitlin to MGOrdered By: Michelle Petty on 06-25-2021 Anion gap [Moles/Vol] 9 mmol/L 3 - 13 mmol/L [facility] Work Phone: [phone] Calcium [Mass/Vol] 8.7 mg/dL 8.4 - 10. 4 mg/dL [facility] Work Phone: [phone] Chloride [Moles/Vol] 96 mmol/L Low 98 - 10 7 mmol/L [facility] Work Phone: [phone] CO2 [Moles/Vol] 20 mmol/L Low 22 - 30 mmol/L [facility] Work Phone: [phone] Creatinine [Mass/Vol] 1.98 mg/dL High 0.52 - 1.25 mg/dL [facility] Work Phone: [phone] EGFR IF NonAfrican [place] 28.1 mL/min Abnormal >60 [facility] Work Phone: [phone] GFR/1.73 sq M.predicted among blacks MDRD (S/P/Bld) [Vol rate/Area] 32.5 mL/min/{1.73_m2} Abnormal >60 [facility] Work Phone: [phone] Glucose [Mass/Vol] 129 mg/dL High 70 - 100 mg/dL [facility] Work Phone: [phone] Interpretation and review of laboratory results Abnormal [facility] Work Phone: [phone] Potassium [Moles/Vol] 4.2 mmol/L 3.5 - 5.1 mmol/L [facility] Work Phone: [phone] Sodium [Moles/Vol] 125 mmol/L Low 135 - 145 mmol/L [facility] Work Phone: [phone] Urea nitrogen (BldV) [Mass/Vol] 37 mg/dL High 7 - 20 mg/dL [facility] Work Phone: [phone] Blood Gas, ArterialOrdered B y: Willie Andrade on 06-25-2021 Base Excess, Arterial 0.4 mmol/L -3.0 - 3.0 mmol/L [facility] Work Phone: [phone] Arterial No data [facility] Work Phone: [phone] HCO3, Arterial 25.1 mmol/L High 21.0 - 25.0 mmol/L [facility] Work Phone: [phone] Hemoglobin, Art, Extended 9.9 g/dL ScreenOnly [facility] Work Phone: [phone] Interpretation and review of laboratory results Abnormal [facility] Work Phone: [phone] O2 Sat, Arterial 97.5 % 95.0 - 100. 0 % [facility] Work Phone: [phone] pCO2, Arterial 40.7 mm[Hg] 35.0 - 45.0 mm[Hg] [facility] Work Phone: [phone] pH, Arterial 7.408 [facility] Work Phone: [phone] pO2, Arterial 100.6 mm[Hg] High 80.0 - 100.0 mm[Hg] [facility] Work Phone: [phone] TCO2, Arterial 26.4 mmol/L 23.0 - 27.0 mmol/L [facility] Work Phone: [phone] [facility] Work Phone: [phone] [facility] Work Phone: [phone] CBC auto differentialOrdered By: Michelle Petty on 06-25-2021 Hematocrit (Bld) [Volume fraction] 33.6 % Low 35.0 - 47.0 % [facility] Work Phone: [phone] Hemoglobin.gastrointes tinal spec 1 Ql (Stl) 10.7 g/dL Low 11.7 - 16.0 g/dL [facility] Work Phone: [phone] Interpretation and review of laboratory results Abnormal [facility] Work Phone: [phone] MCH (RBC) [Entitic mass] 23.7 pg Low 26.0 - 34.0 pg [facility] Work Phone: [phone] MCHC (RBC) [Mass/Vol] 31.7 % Low 32.0 - 36.0 % [facility] Work Phone: [phone] MCV (RBC) [Entitic vol] 74.9 fL Low 79.0 - 98.0 fL [facility] Work Phone: Platelet distribution width (Bld) [Ratio] 25.1 % High 11.5 - 14.5 % [employer] Work Phone: [phone] Platelet mean volume (Bld) [Entitic vol] 8.0 fL 7.4 - 10.4 fL [facility] Work Phone: [phone] Platelets (Bld) [#/Vol] 155 10*3/uL 140 - 440 10*3/uL [facility] Work Phone: [phone] RBC (Bld) [#/Vol] 4.49 10*6/uL 3.80 - 5.2 0 10*6/uL [facility] Work Phone: [phone] WBC (Bld) [#/Vol] 7.2 10*3/uL 3.6 - 10.7 10*3/uL [facility] Work Phone: [phone] [facility] Work Phone: [phone] [facility] Work Phone: [phone] CR Chest Portableon 06-25-20 21 CR Chest Portable Normal [facility] CULTURE BLOODon 06-25-2021 Microscopic examination of blood, culture CULTURE BLOOD --> Status: F No growth at 5 days. [facility] Comment on above: Performed By: #### C /BLD ####[employer] [employer]. [place], [place] CULTURE BLOOD (Two)on 2020 Microscopic examination of blood, culture CULTURE BLOOD (Two) --> Status: F No growth at 5 days. Normal [facility] Comment on above: Performed By: #### C /BLT ####[employer] [place], [place] Glucose,Bedsideon 06-25-2021 Glucose [Mass/Vol] 206 mg/dL High 70-100 [facility] Comment on above: Result Comment: Test performed by glucose meter. Results may be 10%-15% lowerthan serum/plasma values. (CLIA ID [id number]) Performed By: #### B GLU ####[employer] [place], [place] Glucose [Mass/Vol] 130 mg/dL High 70-100 [facility] Comment on above: Result Comment: Test performed by glucose meter. Results may be 10%-15% lowerthan serum/plasma values. (CLIA ID [id number]) Performed By: #### B GLU ####[address] Hemogram w/ Autodiffon 06-25 Erythrocyte distribution width (RBC) [Ratio] 25.1 % High 11.5-14.5 [facility] Comment on above: Performed By: #### H EMDF, MG3, BMP3M, PHOS3, MDIFF ####[address] [place], [place] Hematocrit (Bld) [Volume fraction] 33.6 % Low 35.0-47.0 [facility] Comment on above: Performed By: #### H EMDF, MG3, BMP3M, PHOS3, MDIFF ####[address] [place], [place] Hemoglobin (Bld) [Mass/Vol] 10.7 g/dL Low 11.7-16.0 [facility] Comment on above: Performed By: #### H EMDF, MG3, BMP3M, PHOS3, MDIFF ####[address] [place], [place] MCH (RBC) [Entitic mass] 23.7 pg Low 26.0-34.0 [facility] Comment on above: Performed By: #### H EMDF, MG3, BMP3M, PHOS3, MDIFF ####[address] [place] MCHC 31.7 % Low 32.0-36.0 [facility] Comment on above: Performed By: #### H EMDF, MG3, BMP3M, PHOS3, MDIFF ####[address] [place] MCV (RBC) [Entitic vol] 74.9 fL Low 79.0-98.0 [facility] Comment on above: Performed By: #### H EMDF, MG3, BMP3M, PHOS3, MDIFF ####[facility] [place], [place] Platelet mean volume (Bld) [Entitic vol] 8.0 fL Normal 7.4-10.4 [facility] Comment on above: Performed By: #### H EMDF, MG3, BMP3M, PHOS3, MDIFF ####[address] [place], [place] Platelets (Bld) [#/Vol] 155 10*3/uL Normal 140-440 [facility] Comment on above: Performed By: #### H EMDF, MG3, BMP3M, PHOS3, MDIFF ####[address] [place], [place] RBC (Bld) [#/Vol] 4.49 10*6/uL Normal 3.80-5.20 [facility] Comment on above: Performed By: #### H EMDF, MG3, BMP3M, PHOS3, MDIFF ####[facility] [employer] [id number] [place], [place] WBC (Bld) [#/Vol] 7.2 10*3/uL Normal 3.6-10.7 [facility] Comment on above: Performed By: #### H EMDF, MG3, BMP3M, PHOS3, MDIFF ####[address] [place], [place] Hepatic Function PanelOrdere d By: Tello Sterling on 06-25-2021 Albumin [Mass/Vol] 2.7 g/dL Low 3.5 - 5.0 g/dL [facility] Work Phone: ALP (Bld) [Catalytic activity/Vol] 111 U/L 38 - 126 U/L [facility] Work Phone: ALT [Catalytic activity/Vol] 42 U/L High 0 - 34 U/L [facility] Work Phone: AST [Catalytic activity/Vol] 31 U/L 15 - 46 U/L [facility] Work Phone: Bilirubin [Mass/Vol] 0.4 mg/dL 0.2 - 1 .3 mg/dL [facility] Work Phone: [phone] Bilirubin.indirect [Mass/Vol] 0.0 mg/dL 0.0 - 0.3 mg/dL [facility] Work Phone: [phone] Free PSA/Total PSA [Mass fraction] 5.7 g/dL Low 6.3 - 8.2 g/dL [facility] Work Phone: [phone] Interpretation and review of laboratory results Abnormal [facility] Work Phone: [phone] MagnesiumOrdered By: Michelle lauren on 06-25-2021 Magnesium [Mass/Vol] 1.9 mg/dL 1.6 - 2 .3 mg/dL [facility] Work Phone: [phone] Magnesium [Mass/Vol] 2.1 mg/dL 1.6 - 2 .3 mg/dL [facility] Work Phone: [phone] Magnesiumon 06-25-2021 Magnesium [Mass/Vol] 2.1 mg/dL Normal 1.6-2.3 [facility] Comment on above: Performed By: #### H EMDF, MG3, BMP3MELVIN MDIFF ####[facility] [employer] [address] Manual Diffon 06-25-2021 Abs Baso Cnt 0.0 10*3/uL Normal 0.0-0.2 [facility] Comment on above: Performed By: #### H EMDF, MG3, BMP3M, PHOWoodrow, MDIFF ####[facility] [employer] [address] [place], [place] Abs Eosin Cnt 0.2 10*3/uL Normal 0.0-0.5 [facility] Comment on above: Performed By: #### H EMDF, MG3, BMP3M, PHOWoodrow, MDIFF ####[facility] [employer] [address] [place], [place] Abs Lymph Cnt 0.5 10*3/uL Low 1.1-4.5 [facility] Comment on above: Performed By: #### H EMDF, MG3, BMP3M, PHOS3, MDIFF ####[address] [place], [place] Abs Monocyte Cnt 0.1 10*3/uL Low 0.2-1.1 [facility] Comment on above: Performed By: #### H EMDF, MG3, BMP3M, PHOS3, MDIFF ####[address] [place], [place] Abs Neutrophile Cnt 6.2 10*3/uL Normal 2.2-8.2 [facility] Comment on above: Performed By: #### H EMDF, MG3, BMP3M, PHOS3, MDIFF ####[address] Bands 0 % Normal 0-3 [facility] Comment on above: Performed By: #### H EMDF, MG3, BMP3M, PHOS3, MDIFF ####[address] Basophils 0 % Normal 0-2 [facility] Comment on above: Performed By: #### H EMDF, MG3, BMP3M, PHOS3, MDIFF ####[address] [place], [place] Cells counted 100 Normal [facility] Comment on above: Performed By: #### H EMDF, MG3, BMP3M, PHOS3, MDIFF ####[address] Eosinophils 3 % Normal 1-6 [facility] Comment on above: Performed By: #### H EMDF, MG3, BMP3M, PHOS3, MDIFF ####[address] [place], [place] Lymphocytes 7 % Low 20-40 [facility] Comment on above: Performed By: #### H EMDF, MG3, BMP3M, PHOS3, MDIFF ####[address] [place], [place] Metamyelocytes 3 % Abnormal <1 [facility] Comment on above: Performed By: #### H EMDF, MG3, BMP3M, PHOS3, MDIFF ####[facility] [employer] [id number] [employer] [place], [place] Monocytes 1 % Low 2-10 [facility] Comment on above: Performed By: #### H EMDF, MG3, BMP3M, PHOS3, MDIFF ####[facility] [address] [place] RBC Morphology See Prev Normal [facility] Comment on above: Performed By: #### H EMDF, MG3, BMP3M, PHOS3, MDIFF ####[facility] [address] [place] Seg Neutrophils 86 % High 40-80 [facility] Comment on above: Performed By: #### H EMDF, MG3, BMP3M, PHOS3, MDIFF ####[address] [place] [address] Manual DifferentialOrdered B y: Michelle Petty on 06-25-2021 Absolute Baso # 0.0 10*3/uL 0.0 - 0.2 10*3/uL [facility] Work Phone: [phone] Absolute Eos # 0.2 10*3/uL 0.0 - 0.5 10*3/uL [facility] Work Phone: [phone] Absolute Lymph # 0.5 10*3/uL Low 1.1 - 4.5 10*3/uL [facility] Work Phone: [phone] [place] # 0.1 10*3/uL Low 0.2 - 1.1 10*3/uL [facility] Work Phone: [phone] Absolute Neut # 6.2 10*3/uL 2.2 - 8.2 10*3/uL [facility] Work Phone: [phone] Bands 0 % 0 - 3 % [facility] Work Phone: [phone] Basophils/100 WBC (Bld) 0 % 0 - 2 % [facility] Work Phone: [phone] Eosinophils/100 WBC (Bld) 3 % 1 - 6 % [facility] Work Phone: [phone] Interpretation and review of laboratory results Abnormal [facility] Work Phone: [phone] Lymphocytes/100 WBC (Bld) 7 % Low 20 - 40 % [facility] Work Phone: [phone] Metamyelocytes 3 % Abnormal <1 [facility] Work Phone: [phone] Monocytes/100 WBC (Bld) 1 % Low 2 - 10 % [facility] Work Phone: [phone] RBC (Bld) [#/Vol] See Prev [facility] Work Phone: [phone] Neutrophils 86 % High 40 - 80 % [facility] Work Phone: [phone] TOTAL CELLS COUNTED 100 [facility] Work Phone: [phone] [facility] Work Phone: [phone] [facility] Work Phone: [phone] Panel InformationOrdered By: Michelle Petty on 06-25-2021 [facility] Work Phone: [phone] [facility] Work Phone: [phone] [facility] Work Phone: [phone] [facility] Work Phone: [phone] Panel InformationOrdered By: Eladia Scanlon on 06-25-2021 Blood Culture, Routine No growth at 5 days. [facility] Work Phone: [phone] [facility] Work Phone: [phone] [facility] Work Phone: [phone] POCT GlucoseOrdered By: Gennaro Parsons on 06-25-2021 Glucose [Mass/Vol] 206 mg/dL High 70 - 100 mg/dL [facility] Work Phone: [phone] Interpretation and review of laboratory results Abnormal [facility] Work Phone: [phone] [facility] Work Phone: [phone] [facility] Work Phone: [phone] Glucose [Mass/Vol] 130 mg/dL High 70 - 100 mg/dL [facility] Work Phone: [phone] Interpretation and review of laboratory results Abnormal [facility] Work Phone: [phone] [facility] Work Phone: [phone] [facility] Work Phone: [phone] PhosphorusOrdered By: Michelle pearson on 06-25-2021 Phosphate [Mass/Vol] 3.8 mg/dL 2.5 - 4 .5 mg/dL [facility] Work Phone: [phone] Phosphate [Mass/Vol] 4.0 mg/dL 2.5 - 4 .5 mg/dL [facility] Work Phone: [phone] Phosphoruson 06-25-2021 Phosphate [Mass/Vol] 4.0 mg/dL Normal 2.5-4.5 [facility] Comment on above: Performed By: #### H EMDF, MG3, BMP3M, PHOS3, MDIFF ####[facility] [place] [address] XR CHEST PORTABLEOrdered By: Willie Andrade on 06-25-2021 [facility] Work Phone: [phone] [facility] Work Phone: [phone] [facility] Work Phone: [phone] Basic Metabolic Panelon 05-31 Calcium [Mass/Vol] 8.5 mg/dL Normal 8.4-10.4 [facility] Comment on above: Performed By: #### B MP3M, PHOS3, LFT3, ICA, MG3, HEMDF ####[address] [place] [address] Glucose [Mass/Vol] 152 mg/dL High 70-100 [facility] Comment on above: Performed By: #### B MP3M, PHOS3, LFT3, ICA, MG3, HEMDF ####[facility] [employer] [address] [place] [address] Urea nitrogen [Mass/Vol] 34 mg/dL High 7-20 [facility] Comment on above: Performed By: #### B MP3M, PHOS3, LFT3, ICA, MG3, HEMDF ####[facility] [place] [address] Anion gap [Moles/Vol] 7 mmol/L Normal 3-13 [facility] Comment on above: Performed By: #### B MP3M, PHOS3, LFT3, ICA, MG3, HEMDF ####[address] [place], [place] CO2 [Moles/Vol] 28 mmol/L Normal 22-30 [facility] Comment on above: Performed By: #### B MP3M, PHOS3, LFT3, ICA, MG3, HEMDF ####[address] [place], [place] Creatinine [Mass/Vol] 1.26 mg/dL High 0.52-1.25 [facility] Comment on above: Performed By: #### B MP3M, PHOS3, LFT3, ICA, MG3, HEMDF ####[address] [place], [place] GFR/1.73 sq M.predicted among blacks MDRD (S/P/Bld) [Vol rate/Area] 56.2 mL/min/{1.73_m2} Abnormal >60 [facility] Comment on above: Performed By: #### B MP3M, PHOS3, LFT3, ICA, MG3, HEMDF ####[address] [place], [place] GFR/1.73 sq M.predicted among non-blacks MDRD (S/P/Bld) [Vol rate/Area] 48.5 mL/min/{1.73_m2} Abnormal >60 [facility] Comment on above: Result Comment: KDIG O guidelines provide the following GFR categories:Stage GFR(ml/min/1.73 m2) TermsG1 >=90 Normal or highG2 60-89 Mildly decreased*G3a 45-59 Mildly to moderately ilmpvecqmZ2x 30-44 Moderately to severely decreasedG4 15-29 Severely [...] B MP3M, PHOS3, LFT3, ICA, MG3, HEMDF ####[facility] [employer] [id number] [place], [place] Chloride [Moles/Vol] 96 mmol/L Low 98-107 [facility] Comment on above: Performed By: #### B MP3M, PHOS3, LFT3, ICA, MG3, HEMDF ####[facility] [place], [place] Potassium [Moles/Vol] 4.1 mmol/L Normal 3.5-5.1 [facility] Comment on above: Result Comment: Slig htly hemolysed, interpret with caution. Performed By: #### B MP3M, PHOS3, LFT3, ICA, MG3, HEMDF ####[facility] [employer] [address] [place], [place] Sodium [Moles/Vol] 131 mmol/L Low 135-145 [facility] Comment on above: Performed By: #### B MP3M, PHOS3, LFT3, ICA, MG3, HEMDF ####[facility] [employer] [address] [place], [place] Basic Metabolic Panel w/ Ref kaitlin to MGOrdered By: Michelle Petty on 06-24-2021 Anion gap [Moles/Vol] 7 mmol/L 3 - 13 mmol/L [facility] Work Phone: Calcium [Mass/Vol] 8.5 mg/dL 8.4 - 10. 4 mg/dL [facility] Work Phone: Chloride [Moles/Vol] 96 mmol/L Low 98 - 10 7 mmol/L [facility] Work Phone: CO2 [Moles/Vol] 28 mmol/L 22 - 30 mmol/L [facility] Work Phone: Creatinine [Mass/Vol] 1.26 mg/dL High 0.52 - 1.25 mg/dL [facility] Work Phone: EGFR IF NonAfrican [place] 48.5 mL/min Abnormal >60 [facility] Work Phone: [...] 4.3 10*3/uL [facility] Work Phone: 22 Absolute [place] # 0.9 10*3/uL High 0.0 - 0.8 [...] 30.3 % Low 35.0 - 47.0 % [facility] Work Phone: 22 Hemoglobin.gastrointes tinal spec 1 Ql (Stl) 9.8 g/dL Low 11.7 - 16.0 g/dL [facility] Work Phone: Interpretation and review of laboratory results Abnormal [facility] Work Phone: 22 Lymphocytes/100 WBC (Bld) 9.5 % Low 20.0 - 40.0 % [facility] Work Phone: MCH (RBC) [Entitic mass] 23.8 pg Low 26.0 - 34.0 pg [facility] Work Phone: MCHC (RBC) [Mass/Vol] 32.4 % 32.0 - 36.0 % [facility] Work Phone: MCV (RBC) [Entitic vol] 73.6 fL Low 79.0 - 98.0 fL [facility] Work Phone: Monocytes/100 WBC (Bld) 11.9 % High 2.0 - 10.0 % [facility] Work Phone: Platelet distribution width (Bld) [Ratio] 24.2 % High 11.5 - 14.5 % [facility] Work Phone: Platelet mean volume (Bld) [Entitic vol] 8.6 fL 7.4 - 10.4 fL [facility] Work Phone: 22 Platelets (Bld) [#/Vol] 153 10*3/uL 140 - 440 10*3/uL [facility] Work Phone: RBC (Bld) [#/Vol] 4.12 10*6/uL 3.80 - 5.2 0 10*6/uL [facility] Work Phone: WBC (Bld) [#/Vol] 7.2 10*3/uL 3.6 - 10.7 10*3/uL [facility] Work Phone: 22 [facility] Work Phone: [facility] Work Phone: CULT./ST. RESPIRATORYon -2 CULT./ST. RESPIRATORY Normal [facility] Comment on above: Performed By: #### S /GRM ####[facility] [id number] [place] [address]#### CS/RE ####[facility] [id number] [place] [address]Fudwq [facility] [id number] [place], [place] [id number] Calcium,Ionizedon 06-24-2021 Ionized Ca,Measured 3.80 mg/dL Low 4.30-5.20 [facility] Comment on above: Performed By: #### B MP3M, PHOS3, LFT3, ICA, MG3, HEMDF ####[id number] [place], [place] pH, Ionized Calcium 7.40 Normal 7.31-7.46 [facility] Comment on above: Performed By: #### B MP3M, PHOS3, LFT3, ICA, MG3, HEMDF ####[id number] [place], [place] Culture, RespiratoryOrdered By: Jethro Hutchison on 06-24-2021 Interpretation and review of laboratory results Abnormal [facility] Work Phone: [phone] Respiratory Culture Few normal respirato ry pretty. Abnormal [facility] Work Phone: [phone] Respiratory Culture Staphylococcus aureus Abnormal [facility] Work Phone: [phone] Respiratory Culture [facility] Work Phone: [phone] [facility] Work Phone: [phone] [facility] Work Phone: Glucose,Bedsideon 06-24-2021 Glucose [Mass/Vol] 189 mg/dL High 70-100 [facility] Comment on above: Result Comment: Test performed by glucose meter. Results may be 10%-15% lowerthan serum/plasma values. (CLIA ID [id number]) Performed By: #### B GLU ####[address] . [place] [address] Glucose [Mass/Vol] 148 mg/dL High 70-100 [facility] Comment on above: Result Comment: Test performed by glucose meter. Results may be 10%-15% lowerthan serum/plasma values. (CLIA ID [id number]) Performed By: #### B GLU ####[address] [place], [place] Glucose [Mass/Vol] 222 mg/dL High 70-100 [facility] Comment on above: Result Comment: Test performed by glucose meter. Results may be 10%-15% lowerthan serum/plasma values. (CLIA ID [id number]) Performed By: #### B GLU ####[address] [place], [place] Glucose [Mass/Vol] 214 mg/dL [facility] 70-100 [facility] Comment on above: Result Comment: Test performed by glucose meter. Results may be 10%-15% lowerthan serum/plasma values. (CLIA ID [id number]) Performed By: #### B GLU ####[facility] Ex[employer] [address] [address] [place], [place] Glucose [Mass/Vol] 144 mg/dL [facility] 70-100 [facility] Comment on above: Result Comment: Test performed by glucose meter. Results may be 10%-15% lowerthan serum/plasma values. (CLIA ID [id number]) Performed By: #### B GLU ####[address] [place], [place] Hemogram w/ Autodiffon 06-24 Abs Baso Cnt 0.1 10*3/uL Normal 0.0-0.2 [facility] Comment on above: Performed By: #### B MP3M, PHOS3, LFT3, ICA, MG3, HEMDF ####[facility] [employer] [id number] [place], [place] Abs Neutrophile Cnt 5.2 10*3/uL Normal 1.8-7.0 [facility] Comment on above: Performed By: #### B MP3M, PHOS3, LFT3, ICA, MG3, HEMDF ####[address] [place], [place] Basophils/100 WBC (Bld) 0.8 % Normal 0.0-2.0 [facility] Comment on above: Performed By: #### B MP3M, PHOS3, LFT3, ICA, MG3, HEMDF ####[address] [place], [place] Eosinophils (Bld) [#/Vol] 0.4 10*3/uL Normal 0.0-0.5 [facility] Comment on above: Performed By: #### B MP3M, PHOS3, LFT3, ICA, MG3, HEMDF ####[address] [place], [place] Eosinophils/100 WBC (Bld) 5.0 % Normal 1.0-6.0 [facility] Comment on above: Performed By: #### B MP3M, PHOS3, LFT3, ICA, MG3, HEMDF ####[address] [place], [place] Erythrocyte distribution width (RBC) [Ratio] 24.2 % High 11.5-14.5 [facility] Comment on above: Performed By: #### B MP3M, PHOS3, LFT3, ICA, MG3, HEMDF ####[address] [place], [place] Granulocytes/100 WBC (Bld) 72.8 % Normal 40.0-80.0 [facility] Comment on above: Performed By: #### B MP3M, PHOS3, LFT3, ICA, MG3, HEMDF ####[address] [place], [place] Hematocrit (Bld) [Volume fraction] 30.3 % Low 35.0-47.0 [facility] Comment on above: Performed By: #### B MP3M, PHOS3, LFT3, ICA, MG3, HEMDF ####[address] [place], [place] Hemoglobin (Bld) [Mass/Vol] 9.8 g/dL Low 11.7-16.0 [facility] Comment on above: Performed By: #### B MP3M, PHOS3, LFT3, ICA, MG3, HEMDF ####[address] [place], [place] Lymphocytes (Bld) [#/Vol] 0.7 10*3/uL Low 1.0-4.3 [facility] Comment on above: Performed By: #### B MP3M, PHOS3, LFT3, ICA, MG3, HEMDF ####[address] Lymphocytes/100 WBC (Bld) 9.5 % Low 20.0-40.0 [facility] Comment on above: Performed By: #### B MP3M, PHOS3, LFT3, ICA, MG3, HEMDF ####[address] MCH (RBC) [Entitic mass] 23.8 pg Low 26.0-34.0 [facility] Comment on above: Performed By: #### B MP3M, PHOS3, LFT3, ICA, MG3, HEMDF ####[address] MCHC 32.4 % Normal 32.0-36.0 [facility] Comment on above: Performed By: #### B MP3M, PHOS3, LFT3, ICA, MG3, HEMDF ####[address] MCV (RBC) [Entitic vol] 73.6 fL Low 79.0-98.0 [facility] Comment on above: Performed By: #### B MP3M, PHOS3, LFT3, ICA, MG3, HEMDF ####[address] Monocytes (Bld) [#/Vol] 0.9 10*3/uL High 0.0-0.8 [facility] Comment on above: Performed By: #### B MP3M, PHOS3, LFT3, ICA, MG3, HEMDF ####[address] [place], [place] Monocytes/100 WBC (Bld) 11.9 % High 2.0-10.0 [facility] Comment on above: Performed By: #### B MP3M, PHOS3, LFT3, ICA, MG3, HEMDF ####[address] [place], [place] Platelet mean volume (Bld) [Entitic vol] 8.6 fL Normal 7.4-10.4 [facility] Comment on above: Performed By: #### B MP3M, PHOS3, LFT3, ICA, MG3, HEMDF ####[address] [place], [place] Platelets (Bld) [#/Vol] 153 10*3/uL Normal 140-440 [facility] Comment on above: Performed By: #### B MP3M, PHOS3, LFT3, ICA, MG3, HEMDF ####[address] [place], [place] RBC (Bld) [#/Vol] 4.12 10*6/uL Normal 3.80-5.20 [facility] Comment on above: Performed By: #### B MP3M, PHOS3, LFT3, ICA, MG3, HEMDF ####[address] [place], [place] WBC (Bld) [#/Vol] 7.2 10*3/uL Normal 3.6-10.7 [facility] Comment on above: Performed By: #### B MP3M, PHOS3, LFT3, ICA, MG3, HEMDF ####[address] [place], [place] Hepatic Functionon 1 ALP [Catalytic activity/Vol] 112 U/L Normal 38-126 [facility] Comment on above: Result Comment: Slig htly hemolysed, interpret with caution. Performed By: #### B MP3M, PHOS3, LFT3, ICA, MG3, HEMDF ####[address] [place], [place] ALT [Catalytic activity/Vol] 57 U/L High 0-34 [facility] Comment on above: Result Comment: The ALT test is performed by an updated assay method.Please note that the reference intervals have beenchanged and are now sex specific. Performed By: #### B MP3M, PHOS3, LFT3, ICA, MG3, HEMDF ####[address] [place], [place] AST [Catalytic activity/Vol] 46 U/L Normal 15-46 [facility] Comment on above: Result Comment: Slig htly hemolysed, interpret with caution. Performed By: #### B MP3M, PHOS3, LFT3, ICA, MG3, HEMDF ####[address] [place], [place] Bilirubin [Mass/Vol] 0.7 mg/dL Normal 0.2-1.3 [facility] Comment on above: Performed By: #### B MP3M, PHOS3, LFT3, ICA, MG3, HEMDF ####[address] [place], [place] Bilirubin.indirect [Mass/Vol] 0.0 mg/dL Normal 0.0-0.3 [facility] Comment on above: Performed By: #### B MP3M, PHOS3, LFT3, ICA, MG3, HEMDF ####[address] [place], [place] Protein [Mass/Vol] 6.6 g/dL Normal 6.3-8.2 [facility] Comment on above: Performed By: #### B MP3M, PHOS3, LFT3, ICA, MG3, HEMDF ####[address] [place], [place] Albumin [Mass/Vol] 2.9 g/dL Low 3.5-5.0 [facility] Comment on above: Performed By: #### B MP3M, PHOS3, LFT3, ICA, MG3, HEMDF ####[address] [place] [address] Hepatic Function PanelOrdere d By: Michelle Petty on 06-24-2021 Albumin [Mass/Vol] 2.9 g/dL Low 3.5 - 5.0 g/dL [facility] Work Phone: ALP (Bld) [Catalytic activity/Vol] 112 U/L 38 - 126 U/L [facility] Work Phone: ALT [Catalytic activity/Vol] 57 U/L High 0 - 34 U/L [facility] Work Phone: AST [Catalytic activity/Vol] 46 U/L 15 - 46 U/L [facility] Work Phone: Bilirubin [Mass/Vol] 0.7 mg/dL 0.2 - 1 .3 mg/dL [facility] Work Phone: Bilirubin.indirect [Mass/Vol] 0.0 mg/dL 0.0 - 0.3 mg/dL [facility] Work Phone: Free PSA/Total PSA [Mass fraction] 6.6 g/dL 6.3 - 8.2 g/dL [facility] Work Phone: Ionized CalciumOrdered By: Agusto Petty on 06-24-2021 Interpretation and review of laboratory results Abnormal [facility] Work Phone: Ionized Ca 3.80 mg/dL Low 4.30 - 5.20 mg/dL [facility] Work Phone: pH (Bld) 7.40 [pH] [facility] Work Phone: [facility] Work Phone: [facility] Work Phone: Magnesiumon 06-24-2021 Magnesium [Mass/Vol] 2.0 mg/dL Normal 1.6-2.3 [facility] [employer] [facility] Comment on above: Result Comment: Slig htly hemolysed, interpret with caution. Performed By: #### B MP3M, PHOS3, LFT3, ICA, MG3, HEMDF ####[facility] [address] [place] [address] MagnesiumOrdered By: Michelle lauren on 06-24-2021 Magnesium [Mass/Vol] 2.0 mg/dL 1.6 - 2 .3 mg/dL [facility] Work Phone: [phone] Panel InformationOrdered By: Michelle Petty on 06-24-2021 Interpretation and review of laboratory results Abnormal [facility] Work Phone: [phone] [facility] Work Phone: [phone] [facility] Work Phone: [phone] Osmolality, UrineOrdered By: Tello Sterling on 06-24-2021 Interpretation and review of laboratory results Abnormal [facility] Work Phone: [phone] Osmolality, Ur 165 mosm/kg Low 300 - 1000 mosm/kg [facility] Work Phone: [phone] [facility] Work Phone: [phone] [facility] Work Phone: [phone] Osmolality,Urineon Osmolality,Urine 165 mosm/kg Low 300-1000 [facility] Comment on above: Performed By: #### O SMUR ####[id number] [place] [address]#### NAURR ####[id number] [place] [address] POCT GlucoseOrdered By: Jessica Soni on 06-24-2021 Glucose [Mass/Vol] 189 mg/dL High 70 - 100 mg/dL [facility] Work Phone: [phone] Interpretation and review of laboratory results Abnormal [facility] Work Phone: [phone] [facility] Work Phone: [phone] [facility] Work Phone: [phone] Glucose [Mass/Vol] 148 mg/dL High 70 - 100 mg/dL [facility] Work Phone: [phone] Interpretation and review of laboratory results Abnormal [facility] Work Phone: [phone] [facility] Work Phone: [phone] [facility] Work Phone: [phone] Glucose [Mass/Vol] 222 mg/dL High 70 - 100 mg/dL [facility] Work Phone: [phone] Interpretation and review of laboratory results Abnormal [facility] Work Phone: [phone] [facility] Work Phone: [phone] [facility] Work Phone: [phone] Glucose [Mass/Vol] 214 mg/dL High 70 - 100 mg/dL [facility] Work Phone: [phone] Interpretation and review of laboratory results Abnormal [facility] Work Phone: [phone] [facility] Work Phone: [phone] [facility] Work Phone: [phone] Glucose [Mass/Vol] 144 mg/dL High 70 - 100 mg/dL [facility] Work Phone: [phone] Interpretation and review of laboratory results Abnormal [facility] Work Phone: [phone] [facility] Work Phone: [phone] [facility] Work Phone: [phone] Phosphoruson 06-24-2021 Phosphate [Mass/Vol] 3.9 mg/dL Normal 2.5-4.5 [facility] Comment on above: Result Comment: Slig htly hemolysed, interpret with caution. Performed By: #### B MP3M, PHOS3, LFT3, ICA, MG3, HEMDF ####[address] [place], [place] PhosphorusOrdered By: Michelle pearson on 06-24-2021 Phosphate [Mass/Vol] 3.9 mg/dL 2.5 - 4 .5 mg/dL [facility] Work Phone: [phone] Sodium, Ur Randomon 06-24-20 21 Sodium, Ur Random < 5 Low 30-90 [facility] Comment on above: Performed By: #### O SMUR ####[id number] [place] [address]#### NAURR ####[address] [employer] [place], [place] Sodium, Urine, RandomOrdered By: Tello Sterling on 06-24-2021 Interpretation and review of laboratory results Abnormal [facility] Work Phone: [phone] Sodium (U) [Moles/Vol] mmol/L Low 30 - 90 mmol/L [facility] Work Phone: [phone] [facility] Work Phone: [phone] [facility] Work Phone: [phone] Transferrinon 06-24-2021 Transferrin [Mass/Vol] 220 mg/dL Normal 206-381 [facility] Comment on above: Performed By: #### F EIBC ####[facility] [place], [place] #### TRFN ####[facility] [facility] [place] [address] TransferrinOrdered By: Kyung Wong on 06-24-2021 Transferrin [Mass/Vol] 220 mg/dL 206 - 381 mg/dL [facility] Work Phone: [phone] [facility] Work Phone: [phone] [facility] Work Phone: [phone] Add On Lab TestOrdered By: Gaudencio Wong on 06-23-2021 Add On Rejected [facility] Work Phone: [phone] [facility] Work Phone: [phone] [facility] Work Phone: [phone] Add on test from HISon 06-23 Add on test from HIS Rejected Normal [facility] Comment on above: Result Comment: No s pecimen available for addon.Need a yellow top and a green top drawn and orders put in forthe iron and tibc, and transferrin. Spoke with Michelle 11: Performed By: #### A DDON ####[facility] [place], [place] Basic Metabolic Panelon - Anion gap [Moles/Vol] 7 mmol/L Normal 3-13 [facility] Comment on above: Performed By: #### I CA, LFT3, MG3, PHOS3, BMP3M, RBCMO, HEMDF ####[facility] [place], [place] CO2 [Moles/Vol] 27 mmol/L Normal 22-30 [facility] Comment on above: Performed By: #### I CA, LFT3, MG3, PHOS3, BMP3M, RBCMO, HEMDF ####[address] [place] [address] Chloride [Moles/Vol] 98 mmol/L Normal 98-107 [facility] Comment on above: Performed By: #### I CA, LFT3, MG3, PHOS3, BMP3M, RBCMO, HEMDF ####[address] [place] [address] Sodium [Moles/Vol] 132 mmol/L Low 135-145 [facility] Comment on above: Performed By: #### I CA, LFT3, MG3, PHOS3, BMP3M, RBCMO, HEMDF ####[address] [place], [place] Calcium [Mass/Vol] 8.4 mg/dL Normal 8.4-10.4 [facility] Comment on above: Performed By: #### I CA, LFT3, MG3, PHOS3, BMP3M, RBCMO, HEMDF ####[address] [place], [place] Glucose [Mass/Vol] 138 mg/dL High 70-100 [facility] Comment on above: Performed By: #### I CA, LFT3, MG3, PHOS3, BMP3M, RBCMO, HEMDF ####[address] [place], [place] Urea nitrogen [Mass/Vol] 31 mg/dL High 7-20 [facility] Comment on above: Performed By: #### I CA, LFT3, MG3, PHOS3, BMP3M, RBCMO, HEMDF ####[address] [place] [address] Creatinine [Mass/Vol] 0.95 mg/dL Normal 0.52-1.25 [facility] Comment on above: Performed By: #### I CA, LFT3, MG3, PHOS3, BMP3M, RBCMO, HEMDF ####[address] [place] [address] GFR/1.73 sq M.predicted among blacks MDRD (S/P/Bld) [Vol rate/Area] 79.1 mL/min/{1.73_m2} Normal >60 [facility] Comment on above: Performed By: #### I CA, LFT3, MG3, PHOS3, BMP3M, RBCMO, HEMDF ####[address] [place], [place] GFR/1.73 sq M.predicted among non-blacks MDRD (S/P/Bld) [Vol rate/Area] 68.2 mL/min/{1.73_m2} Normal >60 [facility] Comment on above: Result Comment: KDIG O guidelines provide the following GFR categories:Stage GFR(ml/min/1.73 m2) TermsG1 >=90 Normal or highG2 60-89 Mildly decreased*G3a 45-59 Mildly to moderately [id number] 30-44 Moderately to severely decreasedG4 15-29 Severely [...] CA, LFT3, MG3, PHOS3, BMP3M, RBCMO, HEMDF ####[address] [place], [place] Potassium [Moles/Vol] 3.7 mmol/L Normal 3.5-5.1 [facility] Comment on above: Performed By: #### I CA, LFT3, MG3, PHOS3, BMP3M, RBCMO, HEMDF ####[facility] [employer] [address] [place], [place] Basic Metabolic Panel w/ Ref kaitlin to MGOrdered By: Michelle Petty on 06-23-2021 Anion gap [Moles/Vol] 7 mmol/L 3 - 13 mmol/L [facility] Work Phone: [phone] Calcium [Mass/Vol] 8.4 mg/dL 8.4 - 10. 4 mg/dL [facility] Work Phone: [phone] Chloride [Moles/Vol] 98 mmol/L 98 - 10 7 mmol/L [facility] Work Phone: [phone] CO2 [Moles/Vol] 27 mmol/L 22 - 30 mmol/L [facility] Work Phone: [phone] Creatinine [Mass/Vol] 0.95 mg/dL 0.52 - 1.25 mg/dL [facility] Work Phone: [phone] EGFR IF NonAfrican [place] 68.2 mL/min >60 [facility] Work Phone: [phone] GFR/1.73 sq M.predicted among blacks MDRD (S/P/Bld) [Vol rate/Area] 79.1 mL/min/{1.73_m2} >60 [facility] Work Phone: [phone] Glucose [Mass/Vol] 138 mg/dL High 70 - 100 mg/dL [facility] Work Phone: [phone] Interpretation and review of laboratory results Abnormal [facility] Work Phone: [phone] Potassium [Moles/Vol] 3.7 mmol/L 3.5 - 5.1 mmol/L [facility] Work Phone: [phone] Sodium [Moles/Vol] 132 mmol/L Low 135 - 145 mmol/L [facility] Work Phone: [phone] Urea nitrogen (BldV) [Mass/Vol] 31 mg/dL High 7 - 20 mg/dL [facility] Work Phone: [phone] [facility] Work Phone: [phone] [facility] Work Phone: [phone] CBC auto differentialOrdered By: Michelle Petty on 06-23-2021 Absolute Baso # 0.1 10*3/uL 0.0 - 0.2 10*3/uL [facility] Work Phone: [phone] Absolute Eos # 0.4 10*3/uL 0.0 - 0.5 10*3/uL [facility] Work Phone: [phone] Absolute Lymph # 0.9 10*3/uL Low 1.0 - 4.3 10*3/uL [facility] Work Phone: [phone] Absolute [place] # 1.2 10*3/uL High 0.0 - 0.8 10*3/uL [facility] Work Phone: [phone] Absolute Neut # 7.0 10*3/uL 1.8 - 7.0 10*3/uL [facility] Work Phone: [phone] Basophils/100 WBC (Bld) 0.7 % 0.0 - 2.0 % [facility] Work Phone: [phone] Eosinophils/100 WBC (Bld) 4.1 % 1.0 - 6.0 % [facility] Work Phone: Granulocytes/100 WBC (Bld) 73.5 % 40.0 - 80.0 % [facility] Work Phone: Hematocrit (Bld) [Volume fraction] 32.4 % Low 35.0 - 47.0 % [facility] Work Phone: [phone] Hemoglobin.gastrointes tinal spec 1 Ql (Stl) 10.5 g/dL Low 11.7 - 16.0 g/dL [facility] Work Phone: [phone] Interpretation and review of laboratory results Abnormal [employer] Work Phone: [phone] Lymphocytes/100 WBC (Bld) 9.1 % Low 20.0 - 40.0 % [facility] Work Phone: MCH (RBC) [Entitic mass] 24.1 pg Low 26.0 - 34.0 pg [facility] Work Phone: MCHC (RBC) [Mass/Vol] 32.3 % 32.0 - 36.0 % [facility] Work Phone: [phone] MCV (RBC) [Entitic vol] 74.8 fL Low 79.0 - 98.0 fL [facility] Work Phone: [phone] Monocytes/100 WBC (Bld) 12.6 % High 2.0 - 10.0 % [facility] Work Phone: Platelet distribution width (Bld) [Ratio] 23.9 % High 11.5 - 14.5 % [facility] Work Phone: [phone] Platelet mean volume (Bld) [Entitic vol] 8.7 fL 7.4 - 10.4 fL [facility] Work Phone: [phone] Platelets (Bld) [#/Vol] 148 10*3/uL 140 - 440 10*3/uL [employer] Work Phone: [phone] RBC (Bld) [#/Vol] 4.33 10*6/uL 3.80 - 5.2 0 10*6/uL [employer] Work Phone: [phone] WBC (Bld) [#/Vol] 9.5 10*3/uL 3.6 - 10.7 10*3/uL [employer] Work Phone: [phone] [employer] Work Phone: [phone] [employer] Work Phone: [phone] Calcium,Ionizedon 06-23-2021 Ionized Ca,Measured 3.90 mg/dL Low 4.30-5.20 [facility] [employer] Comment on above: Performed By: #### I CA, LFT3, MG3, PHOS3, BMP3M, RBCMO, HEMDF ####[employer] [place] pH, Ionized Calcium 7.56 High 7.31-7.46 [facility] [employer] Comment on above: Performed By: #### I CA, LFT3, MG3, PHOS3, BMP3M, RBCMO, HEMDF ####[employer] [place] Glucose,Bedsideon 06-23-2021 Glucose [Mass/Vol] 199 mg/dL High 70-100 [facility] [employer] Comment on above: Result Comment: Test performed by glucose meter. Results may be 10%-15% lowerthan serum/plasma values. (CLIA ID [id number]) Performed By: #### B GLU ####[employer] [employer] [place], [place] Hemogram w/ Autodiffon 06-23 Abs Baso Cnt 0.1 10*3/uL Normal 0.0-0.2 [facility] Comment on above: Performed By: #### I CA, LFT3, MG3, PHOS3, BMP3M, RBCMO, HEMDF ####[address] Abs Neutrophile Cnt 7.0 10*3/uL Normal 1.8-7.0 [facility] Comment on above: Performed By: #### I CA, LFT3, MG3, PHOS3, BMP3M, RBCMO, HEMDF ####[address] Basophils/100 WBC (Bld) 0.7 % Normal 0.0-2.0 [facility] Comment on above: Performed By: #### I CA, LFT3, MG3, PHOS3, BMP3M, RBCMO, HEMDF ####[address] Eosinophils (Bld) [#/Vol] 0.4 10*3/uL Normal 0.0-0.5 [facility] Comment on above: Performed By: #### I CA, LFT3, MG3, PHOS3, BMP3M, RBCMO, HEMDF ####[address] Eosinophils/100 WBC (Bld) 4.1 % Normal 1.0-6.0 [facility] Comment on above: Performed By: #### I CA, LFT3, MG3, PHOS3, BMP3M, RBCMO, HEMDF ####[address] Erythrocyte distribution width (RBC) [Ratio] 23.9 % High 11.5-14.5 [facility] Comment on above: Performed By: #### I CA, LFT3, MG3, PHOS3, BMP3M, RBCMO, HEMDF ####[address] Granulocytes/100 WBC (Bld) 73.5 % Normal 40.0-80.0 [facility] Comment on above: Performed By: #### I CA, LFT3, MG3, PHOS3, BMP3M, RBCMO, HEMDF ####[address] Hematocrit (Bld) [Volume fraction] 32.4 % Low 35.0-47.0 [facility] Comment on above: Performed By: #### I CA, LFT3, MG3, PHOS3, BMP3M, RBCMO, HEMDF ####[address] [place], [place] Hemoglobin (Bld) [Mass/Vol] 10.5 g/dL Low 11.7-16.0 [facility] Comment on above: Performed By: #### I CA, LFT3, MG3, PHOS3, BMP3M, RBCMO, HEMDF ####[address] [place], [place] Lymphocytes (Bld) [#/Vol] 0.9 10*3/uL Low 1.0-4.3 [facility] Comment on above: Performed By: #### I CA, LFT3, MG3, PHOS3, BMP3M, RBCMO, HEMDF ####[address] Lymphocytes/100 WBC (Bld) 9.1 % Low 20.0-40.0 [facility] Comment on above: Performed By: #### I CA, LFT3, MG3, PHOS3, BMP3M, RBCMO, HEMDF ####[address] [place], [place] MCH (RBC) [Entitic mass] 24.1 pg Low 26.0-34.0 [facility] Comment on above: Performed By: #### I CA, LFT3, MG3, PHOS3, BMP3M, RBCMO, HEMDF ####[address] [place] MCHC 32.3 % Normal 32.0-36.0 [facility] Comment on above: Performed By: #### I CA, LFT3, MG3, PHOS3, BMP3M, RBCMO, HEMDF ####[address] MCV (RBC) [Entitic vol] 74.8 fL Low 79.0-98.0 [facility] Comment on above: Performed By: #### I CA, LFT3, MG3, PHOS3, BMP3M, RBCMO, HEMDF ####[address] [place], [place] Monocytes (Bld) [#/Vol] 1.2 10*3/uL High 0.0-0.8 [facility] Comment on above: Performed By: #### I CA, LFT3, MG3, PHOS3, BMP3M, RBCMO, HEMDF ####[address] Monocytes/100 WBC (Bld) 12.6 % High 2.0-10.0 [facility] Comment on above: Performed By: #### I CA, LFT3, MG3, PHOS3, BMP3M, RBCMO, HEMDF ####[address] Platelet mean volume (Bld) [Entitic vol] 8.7 fL Normal 7.4-10.4 [facility] Comment on above: Performed By: #### I CA, LFT3, MG3, PHOS3, BMP3M, RBCMO, HEMDF ####[address] [place], [place] Platelets (Bld) [#/Vol] 148 10*3/uL Normal 140-440 [facility] Comment on above: Performed By: #### I CA, LFT3, MG3, PHOS3, BMP3M, RBCMO, HEMDF ####[address] RBC (Bld) [#/Vol] 4.33 10*6/uL Normal 3.80-5.20 [facility] Comment on above: Performed By: #### I CA, LFT3, MG3, PHOS3, BMP3M, RBCMO, HEMDF ####[address] WBC (Bld) [#/Vol] 9.5 10*3/uL Normal 3.6-10.7 [facility] Comment on above: Performed By: #### I CA, LFT3, MG3, PHOS3, BMP3M, RBCMO, HEMDF ####[id number] [place], [place] Hepatic Functionon 1 ALT [Catalytic activity/Vol] 72 U/L High 0-34 [facility] Comment on above: Result Comment: The ALT test is performed by an updated assay method.Please note that the reference intervals have beenchanged and are now sex specific. Performed By: #### I CA, LFT3, MG3, PHOS3, BMP3M, RBCMO, HEMDF ####[id number] [place], [place] ALP [Catalytic activity/Vol] 116 U/L Normal 38-126 [facility] Comment on above: Performed By: #### I CA, LFT3, MG3, PHOS3, BMP3M, RBCMO, HEMDF ####[address] AST [Catalytic activity/Vol] 50 U/L High 15-46 [facility] Comment on above: Performed By: #### I CA, LFT3, MG3, PHOS3, BMP3M, RBCMO, HEMDF ####[address] [place], [place] Bilirubin [Mass/Vol] 0.6 mg/dL Normal 0.2-1.3 [facility] Comment on above: Performed By: #### I CA, LFT3, MG3, PHOS3, BMP3M, RBCMO, HEMDF ####[id number] [place], [place] Bilirubin.indirect [Mass/Vol] 0.0 mg/dL Normal 0.0-0.3 [facility] Comment on above: Performed By: #### I CA, LFT3, MG3, PHOS3, BMP3M, RBCMO, HEMDF ####[id number] [place] [address] Protein [Mass/Vol] 6.3 g/dL Normal 6.3-8.2 [facility] Comment on above: Performed By: #### I CA, LFT3, MG3, PHOS3, BMP3M, RBCMO, HEMDF ####[facility] [employer] [id number] [place] [address] Albumin [Mass/Vol] 2.9 g/dL Low 3.5-5.0 [facility] Comment on above: Performed By: #### I CA, LFT3, MG3, PHOS3, BMP3M, RBCMO, HEMDF ####[facility] [employer] [id number] [place] [address] Hepatic Function PanelOrdere d By: Michelle Petty on 06-23-2021 Albumin [Mass/Vol] 2.9 g/dL Low 3.5 - 5.0 g/dL [facility] Work Phone: [phone] ALP (Bld) [Catalytic activity/Vol] 116 U/L 38 - 126 U/L [facility] Work Phone: [phone] ALT [Catalytic activity/Vol] 72 U/L High 0 - 34 U/L [facility] Work Phone: [phone] AST [Catalytic activity/Vol] 50 U/L High 15 - 46 U/L [facility] Work Phone: [phone] Bilirubin [Mass/Vol] 0.6 mg/dL 0.2 - 1 .3 mg/dL [facility] Work Phone: Bilirubin.indirect [Mass/Vol] 0.0 mg/dL 0.0 - 0.3 mg/dL [facility] Work Phone: [phone] Free PSA/Total PSA [Mass fraction] 6.3 g/dL 6.3 - 8.2 g/dL [facility] Work Phone: [phone] Interpretation and review of laboratory results Abnormal [facility] Work Phone: [phone] Ionized CalciumOrdered By: Agusto Petty on 06-23-2021 Interpretation and review of laboratory results Abnormal [facility] Work Phone: [phone] Ionized Ca 3.90 mg/dL Low 4.30 - 5.20 mg/dL [facility] Work Phone: 1 pH (Bld) 7.56 [pH] High [facility] Work Phone: 1 [facility] Work Phone: 1 [facility] Work Phone: 1 Iron AND TIBCon 06-23-2021 Saturation 10 % Low 15-50 [facility] Comment on above: Performed By: #### F EIBC ####[id number] [place] [address]#### TRFN ####[employer] [id number] [place] [address] Total Iron Binding Cap. 273 ug/dL Normal 261-497 [facility] Comment on above: Performed By: #### F EIBC ####[email or web address] [id number] [place] [address]#### TRFN ####[id number] [place] [address] Iron, Total 27 ug/dL Low 37-170 [facility] Comment on above: Performed By: #### F EIBC ####[id number] [place] [address]#### TRFN ####[id number] [place] [address] Iron and TIBCOrdered By: Jami Abdalla on 06-23-2021 Interpretation and review of laboratory results Abnormal [facility] Work Phone: [phone] Iron [Mass/Vol] 27 ug/dL Low 37 - 170 ug/dL [facility] Work Phone: [phone] Sat 10 % Low 15 - 50 % [facility] Work Phone: 1 TIBC 273 ug/dL 261 - 497 ug/dL [facility] Work Phone: 1 [facility] Work Phone: 1 [facility] Work Phone: [phone] Magnesiumon 06-23-2021 Magnesium [Mass/Vol] 1.9 mg/dL Normal 1.6-2.3 [facility] Comment on above: Performed By: #### I CA, LFT3, MG3, PHOS3, BMP3M, RBCMO, HEMDF ####[facility] [employer] [id number] [place] [address] MagnesiumOrdered By: Michelle lauren on 06-23-2021 Magnesium [...] 06-23-2021 Phosphate [Mass/Vol] 3.4 mg/dL Normal 2.5-4.5 [facility] Comment on above: Performed By: #### I CA, LFT3, MG3, PHOS3, BMP3M, RBCMO, HEMDF ####[facility] [employer] [id number] [place] [address] PhosphorusOrdered By: Michelle pearson on 06-23-2021 Phosphate [Mass/Vol] 3.4 mg/dL 2.5 - 4 .5 mg/dL [facility] Work Phone: [phone] RBC MORPHOLOGYOrdered By: Samuel Petty on 06-23-2021 Anisocytosis Ql (Bld) Slight [facility] Work Phone: [phone] Elliptocytes Slight [facility] Work Phone: 22 Microcytosis Slight [facility] Work Phone: Ovalocytes Slight [facility] Work Phone: [phone] Poikilocytes Slight [facility] Work Phone: 22 Polychromasia Slight [facility] Work Phone: [phone] RBC (Bld) [#/Vol] ABNORMAL [facility] Work Phone: [phone] [facility] Work Phone: [phone] [facility] Work Phone: [phone] RBC Morphologyon 06-23-2021 Anisocytosis Ql (Bld) Slight Normal [facility] Comment on above: Performed By: #### I CA, LFT3, MG3, PHOS3, BMP3M, RBCMO, HEMDF ####[address] [place], [place] Elliptocytes Slight Normal [facility] Comment on above: Performed By: #### I CA, LFT3, MG3, PHOS3, BMP3M, RBCMO, HEMDF ####[address] Microcytosis Slight Normal [facility] Comment on above: Performed By: #### I CA, LFT3, MG3, PHOS3, BMP3M, RBCMO, HEMDF ####[address] Ovalocytes Slight Normal [facility] Comment on above: Performed By: #### I CA, LFT3, MG3, PHOS3, BMP3M, RBCMO, HEMDF ####[address] Poikilocytosis Slight Normal [facility] Comment on above: Performed By: #### I CA, LFT3, MG3, PHOS3, BMP3M, RBCMO, HEMDF ####[address] Polychromasia Slight Normal [facility] Comment on above: Performed By: #### I CA, LFT3, MG3, PHOS3, BMP3M, RBCMO, HEMDF ####[address] RBC morphology finding Nom (Bld) ABNORMAL Normal [facility] Comment on above: Performed By: #### I CA, LFT3, MG3, PHOS3, BMP3M, RBCMO, HEMDF ####[facility] [place], [place] Basic Metabolic Panelon 07-2 Calcium [Mass/Vol] 9.0 mg/dL Normal 8.4-10.4 [facility] Comment on above: Performed By: #### L FT3, HEMDF, BMP3M, MG3, ICA, PHOS3 ####[address] [place], [place] Anion gap [Moles/Vol] 7 mmol/L Normal 3-13 [facility] Comment on above: Performed By: #### L FT3, HEMDF, BMP3M, MG3, ICA, PHOS3 ####[address] [place], [place] CO2 [Moles/Vol] 30 mmol/L Normal 22-30 [facility] Comment on above: Performed By: #### L FT3, HEMDF, BMP3M, MG3, ICA, PHOS3 ####[address] [place], [place] Creatinine [Mass/Vol] 0.66 mg/dL Normal 0.52-1.25 [facility] Comment on above: Performed By: #### L FT3, HEMDF, BMP3M, MG3, ICA, PHOS3 ####[address] [place], [place] eGFR OTHER > 90.0 Normal >60 [facility] Comment on above: Result Comment: KDIG O guidelines provide the following GFR categories:Stage GFR(ml/min/1.73 m2) TermsG1 >=90 Normal or highG2 60-89 Mildly decreased*G3a 45-59 Mildly to moderately ipylteaquI3w 30-44 Moderately to severely decreasedG4 15-29 Severely [...] L FT3, HEMDF, BMP3M, MG3, ICA, PHOS3 ####[address] [place], [place] GFR/1.73 sq M.predicted among blacks MDRD (S/P/Bld) [Vol rate/Area] mL/min/{1.73_m2} Normal >60 [facility] Comment on above: Performed By: #### L FT3, HEMDF, BMP3M, MG3, ICA, PHOS3 ####[address] [place], [place] Glucose [Mass/Vol] 147 mg/dL High 70-100 [facility] Comment on above: Performed By: #### L FT3, HEMDF, BMP3M, MG3, ICA, PHOS3 ####[address] [place], [place] Urea nitrogen [Mass/Vol] 31 mg/dL High 7-20 [facility] Comment on above: Performed By: #### L FT3, HEMDF, BMP3M, MG3, ICA, PHOS3 ####[address] [place], [place] Potassium [Moles/Vol] 3.5 mmol/L Normal 3.5-5.1 [facility] Comment on above: Performed By: #### L FT3, HEMDF, BMP3M, MG3, ICA, PHOS3 ####[address] [place], [place] Sodium [Moles/Vol] 132 mmol/L Low 135-145 [facility] Comment on above: Performed By: #### L FT3, HEMDF, BMP3M, MG3, ICA, PHOS3 ####[address] [place], [place] Chloride [Moles/Vol] 96 mmol/L Low 98-107 [facility] Comment on above: Performed By: #### L FT3, HEMDF, BMP3M, MG3, ICA, PHOS3 ####[address] CR Chest Portableon 06-22-20 21 CR Chest Portable Normal [facility] Calcium,Ionizedon 06-22-2021 Ionized Ca,Measured 4.30 mg/dL Normal 4.30-5.20 [facility] Comment on above: Performed By: #### L FT3, HEMDF, BMP3M, MG3, ICA, PHOS3 ####[facility] [employer] [address] pH, Ionized Calcium 7.41 Normal 7.31-7.46 [facility] Comment on above: Performed By: #### L FT3, HEMDF, BMP3M, MG3, ICA, PHOS3 ####[facility] [employer] [address] Glucose,Bedsideon 06-22-2021 Glucose [Mass/Vol] 192 mg/dL High 70-100 [facility] Comment on above: Result Comment: Test performed by glucose meter. Results may be 10%-15% lowerthan serum/plasma values. (CLIA ID [id number]) Performed By: #### B GLU ####[facility] [employer] [id number] [place], [place] Glucose [Mass/Vol] 141 mg/dL [facility] 70-100 [facility] Comment on above: Result Comment: standards engineer Notified;Test performed by glucose meter. Results may be 10%-15% lowerthan serum/plasma values. (CLIA ID [id number]) Performed By: #### B GLU ####[facility] [employer] [address] Hemogram w/ Autodiffon 06-22 Abs Baso Cnt 0.0 10*3/uL Normal 0.0-0.2 [facility] Comment on above: Performed By: #### L FT3, HEMDF, BMP3M, MG3, ICA, PHOS3 ####[facility] [employer] [address] Abs Neutrophile Cnt 6.4 10*3/uL Normal 1.8-7.0 [facility] Comment on above: Performed By: #### L FT3, HEMDF, BMP3M, MG3, ICA, PHOS3 ####[address] [place], [place] Basophils/100 WBC (Bld) 0.1 % Normal 0.0-2.0 [facility] Comment on above: Performed By: #### L FT3, HEMDF, BMP3M, MG3, ICA, PHOS3 ####[address] Eosinophils (Bld) [#/Vol] 0.4 10*3/uL Normal 0.0-0.5 [facility] Comment on above: Performed By: #### L FT3, HEMDF, BMP3M, MG3, ICA, PHOS3 ####[address] Eosinophils/100 WBC (Bld) 4.3 % Normal 1.0-6.0 [facility] Comment on above: Performed By: #### L FT3, HEMDF, BMP3M, MG3, ICA, PHOS3 ####[address] [place], [place] Erythrocyte distribution width (RBC) [Ratio] 23.2 % High 11.5-14.5 [facility] Comment on above: Performed By: #### L FT3, HEMDF, BMP3M, MG3, ICA, PHOS3 ####[address] Granulocytes/100 WBC (Bld) 74.3 % Normal 40.0-80.0 [facility] Comment on above: Performed By: #### L FT3, HEMDF, BMP3M, MG3, ICA, PHOS3 ####[address] [place], [place] Hematocrit (Bld) [Volume fraction] 34.7 % Low 35.0-47.0 [facility] Comment on above: Performed By: #### L FT3, HEMDF, BMP3M, MG3, ICA, PHOS3 ####[address] Hemoglobin (Bld) [Mass/Vol] 10.8 g/dL Low 11.7-16.0 [facility] Comment on above: Performed By: #### L FT3, HEMDF, BMP3M, MG3, ICA, PHOS3 ####[address] Lymphocytes (Bld) [#/Vol] 0.8 10*3/uL Low 1.0-4.3 [facility] Comment on above: Performed By: #### L FT3, HEMDF, BMP3M, MG3, ICA, PHOS3 ####[address] Lymphocytes/100 WBC (Bld) 9.0 % Low 20.0-40.0 [facility] Comment on above: Performed By: #### L FT3, HEMDF, BMP3M, MG3, ICA, PHOS3 ####[address] MCH (RBC) [Entitic mass] 23.5 pg Low 26.0-34.0 [facility] Comment on above: Performed By: #### L FT3, HEMDF, BMP3M, MG3, ICA, PHOS3 ####[address] [place] MCHC 31.2 % Low 32.0-36.0 [facility] Comment on above: Performed By: #### L FT3, HEMDF, BMP3M, MG3, ICA, PHOS3 ####[address] [place], [place] MCV (RBC) [Entitic vol] 75.5 fL Low 79.0-98.0 [facility] Comment on above: Performed By: #### L FT3, HEMDF, BMP3M, MG3, ICA, PHOS3 ####[address] [place], [place] Monocytes (Bld) [#/Vol] 1.1 10*3/uL High 0.0-0.8 [facility] Comment on above: Performed By: #### L FT3, HEMDF, BMP3M, MG3, ICA, PHOS3 ####[facility] [place], [place] Monocytes/100 WBC (Bld) 12.3 % High 2.0-10.0 [facility] Comment on above: Performed By: #### L FT3, HEMDF, BMP3M, MG3, ICA, PHOS3 ####[facility] [employer] [id number] [place], [place] Platelet mean volume (Bld) [Entitic vol] 8.9 fL Normal 7.4-10.4 [facility] Comment on above: Performed By: #### L FT3, HEMDF, BMP3M, MG3, ICA, PHOS3 ####[facility] [employer] [id number] [place], [place] Platelets (Bld) [#/Vol] 123 10*3/uL Low 140-440 [facility] Comment on above: Performed By: #### L FT3, HEMDF, BMP3M, MG3, ICA, PHOS3 ####[facility] [employer] [id number] [place], [place] RBC (Bld) [#/Vol] 4.60 10*6/uL Normal 3.80-5.20 [facility] Comment on above: Performed By: #### L FT3, HEMDF, BMP3M, MG3, ICA, PHOS3 ####[facility] [employer] [id number] [place], [place] WBC (Bld) [#/Vol] 8.7 10*3/uL Normal 3.6-10.7 [facility] Comment on above: Performed By: #### L FT3, HEMDF, BMP3M, MG3, ICA, PHOS3 ####[facility] [employer] [id number] [place], [place] Hepatic Functionon 1 ALT [Catalytic activity/Vol] 79 U/L High 0-34 [facility] Comment on above: Result Comment: The ALT test is performed by an updated assay method.Please note that the reference intervals have beenchanged and are now sex specific. Performed By: #### L FT3, HEMDF, BMP3M, MG3, ICA, PHOS3 ####[address] [place], [place] ALP [Catalytic activity/Vol] 127 U/L High 38-126 [facility] Comment on above: Performed By: #### L FT3, HEMDF, BMP3M, MG3, ICA, PHOS3 ####[address] AST [Catalytic activity/Vol] 62 U/L High 15-46 [facility] Comment on above: Performed By: #### L FT3, HEMDF, BMP3M, MG3, ICA, PHOS3 ####[address] [place], [place] Bilirubin [Mass/Vol] 0.8 mg/dL Normal 0.2-1.3 [facility] Comment on above: Performed By: #### L FT3, HEMDF, BMP3M, MG3, ICA, PHOS3 ####[address] Bilirubin.indirect [Mass/Vol] 0.0 mg/dL Normal 0.0-0.3 [facility] Comment on above: Performed By: #### L FT3, HEMDF, BMP3M, MG3, ICA, PHOS3 ####[address] Protein [Mass/Vol] 6.9 g/dL Normal 6.3-8.2 [facility] Comment on above: Performed By: #### L FT3, HEMDF, BMP3M, MG3, ICA, PHOS3 ####[address] Albumin [Mass/Vol] 3.1 g/dL Low 3.5-5.0 [facility] Comment on above: Performed By: #### L FT3, HEMDF, BMP3M, MG3, ICA, PHOS3 ####[address] [place], [place] Magnesiumon 06-22-2021 Magnesium [Mass/Vol] 2.1 mg/dL Normal 1.6-2.3 [facility] Comment on above: Performed By: #### L FT3, HEMDF, BMP3M, MG3, ICA, PHOS3 ####[address] [place], [place] POCT GlucoseOrdered By: Jessica Soni on 06-22-2021 Glucose [Mass/Vol] 192 mg/dL High 70 - 100 mg/dL [facility] Work Phone: [phone] Interpretation and review of laboratory results Abnormal [facility] Work Phone: [phone] [facility] Work Phone: [phone] [facility] Work Phone: Phosphoruson 06-22-2021 Phosphate [Mass/Vol] 3.5 mg/dL Normal 2.5-4.5 [facility] Comment on above: Performed By: #### L FT3, HEMDF, BMP3M, MG3, ICA, PHOS3 ####[address] [place], [place] XR CHEST PORTABLEOrdered By: Checo Kirk on 06-22-2021 [facility] Work Phone: [facility] Work Phone: [facility] Work Phone: Basic Metabolic Panelon 05-31 Anion gap [Moles/Vol] 5 mmol/L Normal 3-13 [facility] Comment on above: Performed By: #### M G3, HEMDF, FERR3, PHOS3, ICA, LDH3, BMP3M, CRP2, LFT3, DDI2 ####[address] [place], [place] Calcium [Mass/Vol] 8.3 mg/dL Low 8.4-10.4 [facility] Comment on above: Performed By: #### M G3, HEMDF, FERR3, PHOS3, ICA, LDH3, BMP3M, CRP2, LFT3, DDI2 ####[address] [place], [place] CO2 [Moles/Vol] 31 mmol/L High 22-30 [facility] Comment on above: Performed By: #### M G3, HEMDF, FERR3, PHOS3, ICA, LDH3, BMP3M, CRP2, LFT3, DDI2 ####[address] [place], [place] Glucose [Mass/Vol] 139 mg/dL High 70-100 [facility] Comment on above: Performed By: #### M G3, HEMDF, FERR3, PHOS3, ICA, LDH3, BMP3M, CRP2, LFT3, DDI2 ####[address] [place], [place] Urea nitrogen [Mass/Vol] 32 mg/dL High 7-20 [facility] Comment on above: Performed By: #### M G3, HEMDF, FERR3, PHOS3, ICA, LDH3, BMP3M, CRP2, LFT3, DDI2 ####[address] [place], [place] Creatinine [Mass/Vol] 0.52 mg/dL Normal 0.52-1.25 [facility] Comment on above: Performed By: #### M G3, HEMDF, FERR3, PHOS3, ICA, LDH3, BMP3M, CRP2, LFT3, DDI2 ####[address] [place], [place] eGFR OTHER > 90.0 Normal >60 [facility] Comment on above: Result Comment: KDIG O guidelines provide the following GFR categories:Stage GFR(ml/min/1.73 m2) TermsG1 >=90 Normal or highG2 60-89 Mildly decreased*G3a 45-59 Mildly to moderately [id number] 30-44 Moderately to severely decreasedG4 15-29 Severely [...] PHOS3, ICA, LDH3, BMP3M, CRP2, LFT3, DDI2 ####[address] [place], [place] GFR/1.73 sq M.predicted among blacks MDRD (S/P/Bld) [Vol rate/Area] mL/min/{1.73_m2} Normal >60 [facility] Comment on above: Performed By: #### M G3, HEMDF, FERR3, PHOS3, ICA, LDH3, BMP3M, CRP2, LFT3, DDI2 ####[address] [place], [place] Potassium [Moles/Vol] 4.1 mmol/L Normal 3.5-5.1 [facility] Comment on above: Result Comment: Slig htly hemolysed, interpret with caution. Performed By: #### M G3, HEMDF, FERR3, PHOS3, ICA, LDH3, BMP3M, CRP2, LFT3, DDI2 ####[address] [place], [place] Sodium [Moles/Vol] 134 mmol/L Low 135-145 [facility] Comment on above: Performed By: #### M G3, HEMDF, FERR3, PHOS3, ICA, LDH3, BMP3M, CRP2, LFT3, DDI2 ####[address] [place], [place] Chloride [Moles/Vol] 99 mmol/L Normal 98-107 [facility] Comment on above: Performed By: #### M G3, HEMDF, FERR3, PHOS3, ICA, LDH3, BMP3M, CRP2, LFT3, DDI2 ####[address] [facility] [place] C-Reactive Proteinon 021 CRP [Mass/Vol] 61.5 mg/L High 0.0-6.0 [facility] Comment on above: Result Comment: . Performed By: #### M G3, HEMDF, FERR3, PHOS3, ICA, LDH3, BMP3M, CRP2, LFT3, DDI2 ####[address] [place], [place] Calcium,Ionizedon 06-21-2021 Ionized Ca,Measured 3.80 mg/dL Low 4.30-5.20 [facility] Comment on above: Performed By: #### M G3, HEMDF, FERR3, PHOS3, ICA, LDH3, BMP3M, CRP2, LFT3, DDI2 ####[address] pH, Ionized Calcium 7.46 Normal 7.31-7.46 [facility] Comment on above: Performed By: #### M G3, HEMDF, FERR3, PHOS3, ICA, LDH3, BMP3M, CRP2, LFT3, DDI2 ####[address] [place], [place] D-Dimer, Innovanceon 021 D-Dimer, Innovance 11.91 mg/L High <0.19-0.50 [facility] Comment on above: Result Comment: Inno carrington D-Dimer values of <0.50 mg/L FEU can be used incombination with a pre-test probability model (e.g. Well's)to exclude pulmonary embolism (PE) disease, as well as jodi in the diagnosis of deep vein thrombosis (DVT). Performed By: #### M G3, HEMDF, FERR3, PHOS3, ICA, LDH3, BMP3M, CRP2, LFT3, DDI2 ####[address] [place], [place] Ferritinon 06-21-2021 Ferritin [Mass/Vol] 358 ng/mL High 8-252 [facility] Comment on above: Performed By: #### M G3, HEMDF, FERR3, PHOS3, ICA, LDH3, BMP3M, CRP2, LFT3, DDI2 ####[address] [place], [place] Glucose,Bedsideon 06-21-2021 Glucose [Mass/Vol] 155 mg/dL High 70-100 [facility] Comment on above: Result Comment: Test performed by glucose meter. Results may be 10%-15% lowerthan serum/plasma values. (CLIA ID [id number]) Performed By: #### B GLU ####[address] Glucose [Mass/Vol] 134 mg/dL High 70-100 [facility] Comment on above: Result Comment: Test performed by glucose meter. Results may be 10%-15% lowerthan serum/plasma values. (CLIA ID [id number]) Performed By: #### B GLU ####[address] Hemogram w/ Autodiffon 06-21 Abs Baso Cnt 0.0 10*3/uL Normal 0.0-0.2 [facility] Comment on above: Performed By: #### M G3, HEMDF, FERR3, PHOS3, ICA, LDH3, BMP3M, CRP2, LFT3, DDI2 ####[address] Abs Neutrophile Cnt 10.0 10*3/uL High 1.8-7.0 [facility] Comment on above: Performed By: #### M G3, HEMDF, FERR3, PHOS3, ICA, LDH3, BMP3M, CRP2, LFT3, DDI2 ####[address] Basophils/100 WBC (Bld) 0.3 % Normal 0.0-2.0 [facility] Comment on above: Performed By: #### M G3, HEMDF, FERR3, PHOS3, ICA, LDH3, BMP3M, CRP2, LFT3, DDI2 ####[facility] [address] [place], [place] Eosinophils (Bld) [#/Vol] 0.2 10*3/uL Normal 0.0-0.5 [facility] Comment on above: Performed By: #### M G3, HEMDF, FERR3, PHOS3, ICA, LDH3, BMP3M, CRP2, LFT3, DDI2 ####[address] Eosinophils/100 WBC (Bld) 1.8 % Normal 1.0-6.0 [facility] Comment on above: Performed By: #### M G3, HEMDF, FERR3, PHOS3, ICA, LDH3, BMP3M, CRP2, LFT3, DDI2 ####[address] Erythrocyte distribution width (RBC) [Ratio] 23.4 % High 11.5-14.5 [facility] Comment on above: Performed By: #### M G3, HEMDF, FERR3, PHOS3, ICA, LDH3, BMP3M, CRP2, LFT3, DDI2 ####[address] Granulocytes/100 WBC (Bld) 82.1 % High 40.0-80.0 [facility] Comment on above: Performed By: #### M G3, HEMDF, FERR3, PHOS3, ICA, LDH3, BMP3M, CRP2, LFT3, DDI2 ####[address] Hematocrit (Bld) [Volume fraction] 32.0 % Low 35.0-47.0 [facility] Comment on above: Performed By: #### M G3, HEMDF, FERR3, PHOS3, ICA, LDH3, BMP3M, CRP2, LFT3, DDI2 ####[address] Hemoglobin (Bld) [Mass/Vol] 10.2 g/dL Low 11.7-16.0 [facility] Comment on above: Performed By: #### M G3, HEMDF, FERR3, PHOS3, ICA, LDH3, BMP3M, CRP2, LFT3, DDI2 ####[address] Lymphocytes (Bld) [#/Vol] 0.8 10*3/uL Low 1.0-4.3 [facility] Comment on above: Performed By: #### M G3, HEMDF, FERR3, PHOS3, ICA, LDH3, BMP3M, CRP2, LFT3, DDI2 ####[address] Lymphocytes/100 WBC (Bld) 6.4 % Low 20.0-40.0 [facility] Comment on above: Performed By: #### M G3, HEMDF, FERR3, PHOS3, ICA, LDH3, BMP3M, CRP2, LFT3, DDI2 ####[address] MCH (RBC) [Entitic mass] 23.5 pg Low 26.0-34.0 [facility] Comment on above: Performed By: #### M G3, HEMDF, FERR3, PHOS3, ICA, LDH3, BMP3M, CRP2, LFT3, DDI2 ####[address] MCHC 31.7 % Low 32.0-36.0 [facility] Comment on above: Performed By: #### M G3, HEMDF, FERR3, PHOS3, ICA, LDH3, BMP3M, CRP2, LFT3, DDI2 ####[address] MCV (RBC) [Entitic vol] 74.2 fL Low 79.0-98.0 [facility] Comment on above: Performed By: #### M G3, HEMDF, FERR3, PHOS3, ICA, LDH3, BMP3M, CRP2, LFT3, DDI2 ####[address] Monocytes (Bld) [#/Vol] 1.2 10*3/uL High 0.0-0.8 [facility] Comment on above: Performed By: #### M G3, HEMDF, FERR3, PHOS3, ICA, LDH3, BMP3M, CRP2, LFT3, DDI2 ####[address] [place] [address] Monocytes/100 WBC (Bld) 9.4 % Normal 2.0-10.0 [facility] Comment on above: Performed By: #### M G3, HEMDF, FERR3, PHOS3, ICA, LDH3, BMP3M, CRP2, LFT3, DDI2 ####[address] [place], [place] Platelet mean volume (Bld) [Entitic vol] 9.4 fL Normal 7.4-10.4 [facility] Comment on above: Performed By: #### M G3, HEMDF, FERR3, PHOS3, ICA, LDH3, BMP3M, CRP2, LFT3, DDI2 ####[address] Platelets (Bld) [#/Vol] 125 10*3/uL Low 140-440 [facility] Comment on above: Performed By: #### M G3, HEMDF, FERR3, PHOS3, ICA, LDH3, BMP3M, CRP2, LFT3, DDI2 ####[address] RBC (Bld) [#/Vol] 4.32 10*6/uL Normal 3.80-5.20 [facility] Comment on above: Performed By: #### M G3, HEMDF, FERR3, PHOS3, ICA, LDH3, BMP3M, CRP2, LFT3, DDI2 ####[address] [place], [place] WBC (Bld) [#/Vol] 12.2 10*3/uL High 3.6-10.7 [facility] Comment on above: Performed By: #### M G3, HEMDF, FERR3, PHOS3, ICA, LDH3, BMP3M, CRP2, LFT3, DDI2 ####[address] [place], [place] Hepatic Functionon 1 ALP [Catalytic activity/Vol] 149 U/L High 38-126 [facility] Comment on above: Result Comment: Slig htly hemolysed, interpret with caution. Performed By: #### M G3, HEMDF, FERR3, PHOS3, ICA, LDH3, BMP3M, CRP2, LFT3, DDI2 ####[id number] [place], [place] ALT [Catalytic activity/Vol] 71 U/L High 0-34 [facility] Comment on above: Result Comment: The ALT test is performed by an updated assay method.Please note that the reference intervals have beenchanged and are now sex specific. Performed By: #### M G3, HEMDF, FERR3, PHOS3, ICA, LDH3, BMP3M, CRP2, LFT3, DDI2 ####[address] AST [Catalytic activity/Vol] 77 U/L High 15-46 [facility] Comment on above: Result Comment: Slig htly hemolysed, interpret with caution. Performed By: #### M G3, HEMDF, FERR3, PHOS3, ICA, LDH3, BMP3M, CRP2, LFT3, DDI2 ####[address] Bilirubin [Mass/Vol] 1.0 mg/dL Normal 0.2-1.3 [facility] Comment on above: Performed By: #### M G3, HEMDF, FERR3, PHOS3, ICA, LDH3, BMP3M, CRP2, LFT3, DDI2 ####[id number] [place], [place] Protein [Mass/Vol] 6.5 g/dL Normal 6.3-8.2 [facility] Comment on above: Performed By: #### M G3, HEMDF, FERR3, PHOS3, ICA, LDH3, BMP3M, CRP2, LFT3, DDI2 ####[address] Bilirubin.indirect [Mass/Vol] 0.0 mg/dL Normal 0.0-0.3 [facility] Comment on above: Performed By: #### M G3, HEMDF, FERR3, PHOS3, ICA, LDH3, BMP3M, CRP2, LFT3, DDI2 ####[address] Albumin [Mass/Vol] 3.0 g/dL Low 3.5-5.0 [facility] Comment on above: Performed By: #### M G3, HEMDF, FERR3, PHOS3, ICA, LDH3, BMP3M, CRP2, LFT3, DDI2 ####[address] LDHon 06-21-2021 LDH 640 U/L High 120-246 [facility] Comment on above: Result Comment: Slig htly hemolysed, interpret with caution. Performed By: #### M G3, HEMDF, FERR3, PHOS3, ICA, LDH3, BMP3M, CRP2, LFT3, DDI2 ####[address] Magnesiumon 06-21-2021 Magnesium [Mass/Vol] 2.2 mg/dL Normal 1.6-2.3 [facility] Comment on above: Result Comment: Slig htly hemolysed, interpret with caution. Performed By: #### M G3, HEMDF, FERR3, PHOS3, ICA, LDH3, BMP3M, CRP2, LFT3, DDI2 ####[address] Phosphoruson 06-21-2021 Phosphate [Mass/Vol] 3.4 mg/dL Normal 2.5-4.5 [facility] Comment on above: Result Comment: Slig htly hemolysed, interpret with caution. Performed By: #### M G3, HEMDF, FERR3, PHOS3, ICA, LDH3, BMP3M, CRP2, LFT3, DDI2 ####[address] [place] Basic Metabolic Panelon 07-2 -2020 Anion gap [Moles/Vol] 3 mmol/L Normal 3-13 [facility] Comment on above: Performed By: #### L DH3, CRP2, BMP3M, MG3, ICA, PHOS3, FERR3, HEMDF, LFT3, DDI2 ####[id number] [place], [place] Calcium [Mass/Vol] 8.3 mg/dL Low 8.4-10.4 [facility] Comment on above: Performed By: #### L DH3, CRP2, BMP3M, MG3, ICA, PHOS3, FERR3, HEMDF, LFT3, DDI2 ####[address] [place], [place] CO2 [Moles/Vol] 31 mmol/L High 22-30 [facility] Comment on above: Performed By: #### L DH3, CRP2, BMP3M, MG3, ICA, PHOS3, FERR3, HEMDF, LFT3, DDI2 ####[address] [place], [place] Glucose [Mass/Vol] 137 mg/dL High 70-100 [facility] Comment on above: Performed By: #### L DH3, CRP2, BMP3M, MG3, ICA, PHOS3, FERR3, HEMDF, LFT3, DDI2 ####[address] [place], [place] Urea nitrogen [Mass/Vol] 37 mg/dL High 7-20 [facility] Comment on above: Performed By: #### L DH3, CRP2, BMP3M, MG3, ICA, PHOS3, FERR3, HEMDF, LFT3, DDI2 ####[address] [place], [place] Creatinine [Mass/Vol] 0.49 mg/dL Low 0.52-1.25 [facility] Comment on above: Performed By: #### L DH3, CRP2, BMP3M, MG3, ICA, PHOS3, FERR3, HEMDF, LFT3, DDI2 ####[facility] [employer] [id number] [place], [place] eGFR OTHER > 90.0 Normal >60 [facility] Comment on above: Result Comment: KDIG O guidelines provide the following GFR categories:Stage GFR(ml/min/1.73 m2) TermsG1 >=90 Normal or highG2 60-89 Mildly decreased*G3a 45-59 Mildly to moderately [id number] 30-44 Moderately to severely decreasedG4 15-29 Severely [...] MG3, ICA, PHOS3, FERR3, HEMDF, LFT3, DDI2 ####[facility] [address] [place] GFR/1.73 sq M.predicted among blacks MDRD (S/P/Bld) [Vol rate/Area] mL/min/{1.73_m2} Normal >60 [facility] Comment on above: Performed By: #### L DH3, CRP2, BMP3M, MG3, ICA, PHOS3, FERR3, HEMDF, LFT3, DDI2 ####[facility] [address] [place] Potassium [Moles/Vol] 3.3 mmol/L Low 3.5-5.1 [facility] Comment on above: Performed By: #### L DH3, CRP2, BMP3M, MG3, ICA, PHOS3, FERR3, HEMDF, LFT3, DDI2 ####[facility] [employer] [id number] [place] [address] Chloride [Moles/Vol] 101 mmol/L Normal 98-107 [facility] Comment on above: Performed By: #### L DH3, CRP2, BMP3M, MG3, ICA, PHOS3, FERR3, HEMDF, LFT3, DDI2 ####[address] Sodium [Moles/Vol] 135 mmol/L Normal 135-145 [facility] Comment on above: Performed By: #### L DH3, CRP2, BMP3M, MG3, ICA, PHOS3, FERR3, HEMDF, LFT3, DDI2 ####[address] C-Reactive Proteinon 021 CRP [Mass/Vol] 193.5 mg/L High 0.0-6.0 [facility] Comment on above: Result Comment: . Performed By: #### L DH3, CRP2, BMP3M, MG3, ICA, PHOS3, FERR3, HEMDF, LFT3, DDI2 ####[address] [address] [place], [place] Calcium,Ionizedon 06-20-2021 Ionized Ca,Measured 3.80 mg/dL Low 4.30-5.20 [facility] Comment on above: Performed By: #### L DH3, CRP2, BMP3M, MG3, ICA, PHOS3, FERR3, HEMDF, LFT3, DDI2 ####[address] pH, Ionized Calcium 7.50 High 7.31-7.46 [facility] Comment on above: Performed By: #### L DH3, CRP2, BMP3M, MG3, ICA, PHOS3, FERR3, HEMDF, LFT3, DDI2 ####[address] D-Dimer, Innovanceon 021 D-Dimer, Innovance 17.00 mg/L High <0.19-0.50 [facility] Comment on above: Result Comment: Inno carrington D-Dimer values of <0.50 mg/L FEU can be used incombination with a pre-test probability model (e.g. Well's)to exclude pulmonary embolism (PE) disease, as well as jodi in the diagnosis of deep vein thrombosis (DVT). Performed By: #### L DH3, CRP2, BMP3M, MG3, ICA, PHOS3, FERR3, HEMDF, LFT3, DDI2 ####[employer] [facility] [place] [address] Ferritinon 06-20-2021 Ferritin [Mass/Vol] 390 ng/mL High 8-252 [facility] Comment on above: Performed By: #### L DH3, CRP2, BMP3M, MG3, ICA, PHOS3, FERR3, HEMDF, LFT3, DDI2 ####[address] [facility] [place] [address] Glucose,Bedsideon 06-20-2021 Glucose [Mass/Vol] 143 mg/dL High 70-100 [facility] Comment on above: Result Comment: Test performed by glucose meter. Results may be 10%-15% lowerthan serum/plasma values. (CLIA ID [id number]) Performed By: #### B GLU ####[employer] [facility] [place] [address] Glucose [Mass/Vol] 153 mg/dL High 70-100 [facility] Comment on above: Result Comment: Test performed by glucose meter. Results may be 10%-15% lowerthan serum/plasma values. (CLIA ID [id number]) Performed By: #### B GLU ####[employer] [facility] [place] [address] Glucose [Mass/Vol] 145 mg/dL High 70-100 [facility] Comment on above: Result Comment: Test performed by glucose meter. Results may be 10%-15% lowerthan serum/plasma values. (CLIA ID [id number]) Performed By: #### B GLU ####[employer] [facility] [place] [address] Glucose [Mass/Vol] 162 mg/dL High 70-100 [facility] Comment on above: Result Comment: Test performed by glucose meter. Results may be 10%-15% lowerthan serum/plasma values. (CLIA ID [id number]) Performed By: #### B GLU ####[address] [place], [place] Glucose [Mass/Vol] 139 mg/dL High 70-100 [facility] Comment on above: Result Comment: Test performed by glucose meter. Results may be 10%-15% lowerthan serum/plasma values. (CLIA ID [id number]) Performed By: #### B GLU ####[address] Hemogram w/ Autodiffon 06-20 Abs Baso Cnt 0.0 10*3/uL Normal 0.0-0.2 [facility] Comment on above: Performed By: #### L DH3, CRP2, BMP3M, MG3, ICA, PHOS3, FERR3, HEMDF, LFT3, DDI2 ####[address] Abs Neutrophile Cnt 9.8 10*3/uL High 1.8-7.0 [facility] Comment on above: Performed By: #### L DH3, CRP2, BMP3M, MG3, ICA, PHOS3, FERR3, HEMDF, LFT3, DDI2 ####[address] Basophils/100 WBC (Bld) 0.1 % Normal 0.0-2.0 [facility] Comment on above: Performed By: #### L DH3, CRP2, BMP3M, MG3, ICA, PHOS3, FERR3, HEMDF, LFT3, DDI2 ####[address] Eosinophils (Bld) [#/Vol] 0.3 10*3/uL Normal 0.0-0.5 [facility] Comment on above: Performed By: #### L DH3, CRP2, BMP3M, MG3, ICA, PHOS3, FERR3, HEMDF, LFT3, DDI2 ####[address] Eosinophils/100 WBC (Bld) 2.3 % Normal 1.0-6.0 [facility] Comment on above: Performed By: #### L DH3, CRP2, BMP3M, MG3, ICA, PHOS3, FERR3, HEMDF, LFT3, DDI2 ####[address] Erythrocyte distribution width (RBC) [Ratio] 22.9 % High 11.5-14.5 [facility] Comment on above: Performed By: #### L DH3, CRP2, BMP3M, MG3, ICA, PHOS3, FERR3, HEMDF, LFT3, DDI2 ####[address] Granulocytes/100 WBC (Bld) 82.9 % High 40.0-80.0 [facility] Comment on above: Performed By: #### L DH3, CRP2, BMP3M, MG3, ICA, PHOS3, FERR3, HEMDF, LFT3, DDI2 ####[address] Hematocrit (Bld) [Volume fraction] 32.9 % Low 35.0-47.0 [facility] Comment on above: Performed By: #### L DH3, CRP2, BMP3M, MG3, ICA, PHOS3, FERR3, HEMDF, LFT3, DDI2 ####[address] Hemoglobin (Bld) [Mass/Vol] 10.4 g/dL Low 11.7-16.0 [facility] Comment on above: Performed By: #### L DH3, CRP2, BMP3M, MG3, ICA, PHOS3, FERR3, HEMDF, LFT3, DDI2 ####[address] Lymphocytes (Bld) [#/Vol] 0.8 10*3/uL Low 1.0-4.3 [facility] Comment on above: Performed By: #### L DH3, CRP2, BMP3M, MG3, ICA, PHOS3, FERR3, HEMDF, LFT3, DDI2 ####[address] Lymphocytes/100 WBC (Bld) 7.0 % Low 20.0-40.0 [facility] Comment on above: Performed By: #### L DH3, CRP2, BMP3M, MG3, ICA, PHOS3, FERR3, HEMDF, LFT3, DDI2 ####[address] MCH (RBC) [Entitic mass] 23.4 pg Low 26.0-34.0 [facility] Comment on above: Performed By: #### L DH3, CRP2, BMP3M, MG3, ICA, PHOS3, FERR3, HEMDF, LFT3, DDI2 ####[address] MCHC 31.5 % Low 32.0-36.0 [facility] Comment on above: Performed By: #### L DH3, CRP2, BMP3M, MG3, ICA, PHOS3, FERR3, HEMDF, LFT3, DDI2 ####[address] MCV (RBC) [Entitic vol] 74.3 fL Low 79.0-98.0 [facility] Comment on above: Performed By: #### L DH3, CRP2, BMP3M, MG3, ICA, PHOS3, FERR3, HEMDF, LFT3, DDI2 ####[address] Monocytes (Bld) [#/Vol] 0.9 10*3/uL High 0.0-0.8 [facility] Comment on above: Performed By: #### L DH3, CRP2, BMP3M, MG3, ICA, PHOS3, FERR3, HEMDF, LFT3, DDI2 ####[address] [place], [place] Monocytes/100 WBC (Bld) 7.7 % Normal 2.0-10.0 [facility] Comment on above: Performed By: #### L DH3, CRP2, BMP3M, MG3, ICA, PHOS3, FERR3, HEMDF, LFT3, DDI2 ####[address] [place], [place] Platelet mean volume (Bld) [Entitic vol] 9.4 fL Normal 7.4-10.4 [facility] Comment on above: Performed By: #### L DH3, CRP2, BMP3M, MG3, ICA, PHOS3, FERR3, HEMDF, LFT3, DDI2 ####[address] Platelets (Bld) [#/Vol] 112 10*3/uL Low 140-440 [facility] Comment on above: Performed By: #### L DH3, CRP2, BMP3M, MG3, ICA, PHOS3, FERR3, HEMDF, LFT3, DDI2 ####[address] [place], [place] RBC (Bld) [#/Vol] 4.43 10*6/uL Normal 3.80-5.20 [facility] Comment on above: Performed By: #### L DH3, CRP2, BMP3M, MG3, ICA, PHOS3, FERR3, HEMDF, LFT3, DDI2 ####[address] WBC (Bld) [#/Vol] 11.9 10*3/uL High 3.6-10.7 [facility] Comment on above: Performed By: #### L DH3, CRP2, BMP3M, MG3, ICA, PHOS3, FERR3, HEMDF, LFT3, DDI2 ####[address] Hepatic Functionon 1 ALP [Catalytic activity/Vol] 101 U/L Normal 38-126 [facility] Comment on above: Performed By: #### L DH3, CRP2, BMP3M, MG3, ICA, PHOS3, FERR3, HEMDF, LFT3, DDI2 ####[address] ALT [Catalytic activity/Vol] 69 U/L High 0-34 [facility] Comment on above: Result Comment: The ALT test is performed by an updated assay method.Please note that the reference intervals have beenchanged and are now sex specific. Performed By: #### L DH3, CRP2, BMP3M, MG3, ICA, PHOS3, FERR3, HEMDF, LFT3, DDI2 ####[address] AST [Catalytic activity/Vol] 52 U/L High 15-46 [facility] Comment on above: Performed By: #### L DH3, CRP2, BMP3M, MG3, ICA, PHOS3, FERR3, HEMDF, LFT3, DDI2 ####[address] Bilirubin [Mass/Vol] 1.0 mg/dL Normal 0.2-1.3 [facility] Comment on above: Performed By: #### L DH3, CRP2, BMP3M, MG3, ICA, PHOS3, FERR3, HEMDF, LFT3, DDI2 ####[address] [place], [place] Bilirubin.indirect [Mass/Vol] 0.0 mg/dL Normal 0.0-0.3 [facility] Comment on above: Performed By: #### L DH3, CRP2, BMP3M, MG3, ICA, PHOS3, FERR3, HEMDF, LFT3, DDI2 ####[address] Protein [Mass/Vol] 6.2 g/dL Low 6.3-8.2 [facility] Comment on above: Performed By: #### L DH3, CRP2, BMP3M, MG3, ICA, PHOS3, FERR3, HEMDF, LFT3, DDI2 ####[address] [place] [address] Albumin [Mass/Vol] 2.9 g/dL Low 3.5-5.0 [facility] Comment on above: Performed By: #### L DH3, CRP2, BMP3M, MG3, ICA, PHOS3, FERR3, HEMDF, LFT3, DDI2 ####[address] [place] [address] LDHon 06-20-2021 LDH 328 U/L High 120-246 [facility] Comment on above: Performed By: #### L DH3, CRP2, BMP3M, MG3, ICA, PHOS3, FERR3, HEMDF, LFT3, DDI2 ####[address] [address] Magnesiumon 06-20-2021 Magnesium [Mass/Vol] 2.1 mg/dL Normal 1.6-2.3 [facility] Comment on above: Performed By: #### L DH3, CRP2, BMP3M, MG3, ICA, PHOS3, FERR3, HEMDF, LFT3, DDI2 ####[address] [address] Phosphoruson 06-20-2021 Phosphate [Mass/Vol] 3.0 mg/dL Normal 2.5-4.5 [facility] Comment on above: Performed By: #### L DH3, CRP2, BMP3M, MG3, ICA, PHOS3, FERR3, HEMDF, LFT3, DDI2 ####[address] [address] Arterial Blood Gaseson 06-19 CO2 [Moles/Vol] 34.0 mmol/L High 23.0-27.0 [facility] Comment on above: Performed By: #### H EMDF, FERR3, LFT3, ABG, ICA, LDH3, DDI2, CRP2, MG3, PHOS3, BMP3M ####[address] [address] HCO3 (Bld) [Moles/Vol] 32.7 mmol/L High 21.0-25.0 [facility] Comment on above: Performed By: #### H EMDF, FERR3, LFT3, ABG, ICA, LDH3, DDI2, CRP2, MG3, PHOS3, BMP3M ####[address] Hemoglobin (Bld) [Mass/Vol] 11.7 g/dL Normal ScreenOnly [facility] Comment on above: Performed By: #### H EMDF, FERR3, LFT3, ABG, ICA, LDH3, DDI2, CRP2, MG3, PHOS3, BMP3M ####[address] Oxygen (Bld) [Partial pressure] 53.7 mm[Hg] Low 80.0-100.0 [facility] Comment on above: Performed By: #### H EMDF, FERR3, LFT3, ABG, ICA, LDH3, DDI2, CRP2, MG3, PHOS3, BMP3M ####[address] Oxygen saturation in Blood 87.9 % Low 95.0-100.0 [facility] Comment on above: Performed By: #### H EMDF, FERR3, LFT3, ABG, ICA, LDH3, DDI2, CRP2, MG3, PHOS3, BMP3M ####[address] pCO2 41.3 mm[Hg] Normal 35.0-45.0 [facility] Comment on above: Performed By: #### H EMDF, FERR3, LFT3, ABG, ICA, LDH3, DDI2, CRP2, MG3, PHOS3, BMP3M ####[address] pH 7.517 High 7.350-7.450 [facility] Comment on above: Performed By: #### H EMDF, FERR3, LFT3, ABG, ICA, LDH3, DDI2, CRP2, MG3, PHOS3, BMP3M ####[address] [place], [place] Std Base Excess 9.0 mmol/L High -3.0-3.0 [facility] Comment on above: Performed By: #### H EMDF, FERR3, LFT3, ABG, ICA, LDH3, DDI2, CRP2, MG3, PHOS3, BMP3M ####[address] [place], [place] FIO2 30% Normal [facility] Comment on above: Performed By: #### H EMDF, FERR3, LFT3, ABG, ICA, LDH3, DDI2, CRP2, MG3, PHOS3, BMP3M ####[address] [place], [place] Basic Metabolic Panelon 07-2 Calcium [Mass/Vol] 8.4 mg/dL Normal 8.4-10.4 [facility] Comment on above: Performed By: #### H EMDF, FERR3, LFT3, ABG, ICA, LDH3, DDI2, CRP2, MG3, PHOS3, BMP3M ####[address] [place], [place] Anion gap [Moles/Vol] 4 mmol/L Normal 3-13 [facility] Comment on above: Performed By: #### H EMDF, FERR3, LFT3, ABG, ICA, LDH3, DDI2, CRP2, MG3, PHOS3, BMP3M ####[address] [place] CO2 [Moles/Vol] 33 mmol/L High 22-30 [facility] Comment on above: Performed By: #### H EMDF, FERR3, LFT3, ABG, ICA, LDH3, DDI2, CRP2, MG3, PHOS3, BMP3M ####[address] [place], [place] Glucose [Mass/Vol] 136 mg/dL High 70-100 [facility] Comment on above: Performed By: #### H EMDF, FERR3, LFT3, ABG, ICA, LDH3, DDI2, CRP2, MG3, PHOS3, BMP3M ####[address] [place], [place] Urea nitrogen [Mass/Vol] 47 mg/dL High 7-20 [facility] Comment on above: Performed By: #### H EMDF, FERR3, LFT3, ABG, ICA, LDH3, DDI2, CRP2, MG3, PHOS3, BMP3M ####[address] Creatinine [Mass/Vol] 0.65 mg/dL Normal 0.52-1.25 [facility] Comment on above: Performed By: #### H EMDF, FERR3, LFT3, ABG, ICA, LDH3, DDI2, CRP2, MG3, PHOS3, BMP3M ####[address] eGFR OTHER > 90.0 Normal >60 [facility] Comment on above: Result Comment: KDIG O guidelines provide the following GFR categories:Stage GFR(ml/min/1.73 m2) TermsG1 >=90 Normal or highG2 60-89 Mildly decreased*G3a 45-59 Mildly to moderately peymbmxenV3f 30-44 Moderately to severely decreasedG4 15-29 Severely [...] ICA, LDH3, DDI2, CRP2, MG3, PHOS3, BMP3M ####[address] GFR/1.73 sq M.predicted among blacks MDRD (S/P/Bld) [Vol rate/Area] mL/min/{1.73_m2} Normal >60 [facility] Comment on above: Performed By: #### H EMDF, FERR3, LFT3, ABG, ICA, LDH3, DDI2, CRP2, MG3, PHOS3, BMP3M ####[address] Potassium [Moles/Vol] 3.1 mmol/L Low 3.5-5.1 [facility] Comment on above: Performed By: #### H EMDF, FERR3, LFT3, ABG, ICA, LDH3, DDI2, CRP2, MG3, PHOS3, BMP3M ####[address] Chloride [Moles/Vol] 104 mmol/L Normal 98-107 [facility] Comment on above: Performed By: #### H EMDF, FERR3, LFT3, ABG, ICA, LDH3, DDI2, CRP2, MG3, PHOS3, BMP3M ####[address] Sodium [Moles/Vol] 142 mmol/L Normal 135-145 [facility] Comment on above: Performed By: #### H EMDF, FERR3, LFT3, ABG, ICA, LDH3, DDI2, CRP2, MG3, PHOS3, BMP3M ####[address] C-Reactive Proteinon 021 CRP [Mass/Vol] 204.0 mg/L High 0.0-6.0 [facility] Comment on above: Result Comment: . Performed By: #### H EMDF, FERR3, LFT3, ABG, ICA, LDH3, DDI2, CRP2, MG3, PHOS3, BMP3M ####[address] CR Chest Portableon 06-19-20 21 CR Chest Portable Normal [facility] CULT./ST. RESPIRATORYon 05-31 CULT./ST. RESPIRATORY Normal [facility] Comment on above: Performed By: #### C S/RE ####[address] [address] [address] [place], [place] [id number]#### S/GRM ####[address] [address] CULTURE BLOODon 06-19-2021 Microscopic examination of blood, culture 1 Organism (Coagulase-negative) Staphylococcus hominis Isolated: For identification and/or sensitivity, refer to culture collected on: 06/15/2021 at 2308, ([id number]). Normal [facility] Comment on above: Performed By: #### C /BLD ####[address] Calcium,Ionizedon 06-19-2021 Ionized Ca,Measured 3.90 mg/dL Low 4.30-5.20 [facility] Comment on above: Performed By: #### H EMDF, FERR3, LFT3, ABG, ICA, LDH3, DDI2, CRP2, MG3, PHOS3, BMP3M ####[address] [address] pH, Ionized Calcium 7.45 Normal 7.31-7.46 [facility] Comment on above: Performed By: #### H EMDF, FERR3, LFT3, ABG, ICA, LDH3, DDI2, CRP2, MG3, PHOS3, BMP3M ####[address] [address] D-Dimer, Innov[employer]on 021 D-Dimer, [employer] 15.92 mg/L High <0.19-0.50 [facility] Comment on above: Result Comment: Inno carrington D-Dimer values of <0.50 mg/L FEU can be used incombination with a pre-test probability model (e.g. Well's)to exclude pulmonary embolism (PE) disease, as well as jodi in the diagnosis of deep vein thrombosis (DVT). Performed By: #### H EMDF, FERR3, LFT3, ABG, ICA, LDH3, DDI2, CRP2, MG3, PHOS3, BMP3M ####[employer] [id number] [place] [address] Echo Complete w/wo Contrasto n 06-19-2021 Echo Complete w/wo Contrast Normal [facility] Ferritinon 06-19-2021 Ferritin [Mass/Vol] 340 ng/mL High 8-252 [facility] Comment on above: Performed By: #### H EMDF, FERR3, LFT3, ABG, ICA, LDH3, DDI2, CRP2, MG3, PHOS3, BMP3M ####[id number] [place] [address] Glucose,Bedsideon 06-19-2021 Glucose [Mass/Vol] 162 mg/dL High 70-100 [facility] Comment on above: Result Comment: Test performed by glucose meter. Results may be 10%-15% lowerthan serum/plasma values. (CLIA ID [id number]) Performed By: #### B GLU ####[employer] [place] [address] Glucose [Mass/Vol] 185 mg/dL High 70-100 [facility] Comment on above: Result Comment: Test performed by glucose meter. Results may be 10%-15% lowerthan serum/plasma values. (CLIA ID [id number]) Performed By: #### B GLU ####[address] [place] [address] Glucose [Mass/Vol] 159 mg/dL High 70-100 [facility] Comment on above: Result Comment: Test performed by glucose meter. Results may be 10%-15% lowerthan serum/plasma values. (CLIA ID [id number]) Performed By: #### B GLU ####[address] [id number] [place] [address] Glucose [Mass/Vol] 137 mg/dL High 70-100 [facility] Comment on above: Result Comment: Test performed by glucose meter. Results may be 10%-15% lowerthan serum/plasma values. (CLIA ID [id number]) Performed By: #### B GLU ####[address] Hemogram w/ Autodiffon 06-19 Abs Baso Cnt 0.0 10*3/uL Normal 0.0-0.2 [facility] Comment on above: Performed By: #### H EMDF, FERR3, LFT3, ABG, ICA, LDH3, DDI2, CRP2, MG3, PHOS3, BMP3M ####[address] Abs Neutrophile Cnt 10.4 10*3/uL High 1.8-7.0 [facility] Comment on above: Performed By: #### H EMDF, FERR3, LFT3, ABG, ICA, LDH3, DDI2, CRP2, MG3, PHOS3, BMP3M ####[address] Basophils/100 WBC (Bld) 0.0 % Normal 0.0-2.0 [facility] Comment on above: Performed By: #### H EMDF, FERR3, LFT3, ABG, ICA, LDH3, DDI2, CRP2, MG3, PHOS3, BMP3M ####[address] Eosinophils (Bld) [#/Vol] 0.1 10*3/uL Normal 0.0-0.5 [facility] Comment on above: Performed By: #### H EMDF, FERR3, LFT3, ABG, ICA, LDH3, DDI2, CRP2, MG3, PHOS3, BMP3M ####[address] Eosinophils/100 WBC (Bld) 0.6 % Low 1.0-6.0 [facility] Comment on above: Performed By: #### H EMDF, FERR3, LFT3, ABG, ICA, LDH3, DDI2, CRP2, MG3, PHOS3, BMP3M ####[address] Erythrocyte distribution width (RBC) [Ratio] 22.0 % High 11.5-14.5 [facility] Comment on above: Performed By: #### H EMDF, FERR3, LFT3, ABG, ICA, LDH3, DDI2, CRP2, MG3, PHOS3, BMP3M ####[address] Granulocytes/100 WBC (Bld) 86.5 % High 40.0-80.0 [facility] Comment on above: Performed By: #### H EMDF, FERR3, LFT3, ABG, ICA, LDH3, DDI2, CRP2, MG3, PHOS3, BMP3M ####[address] Hematocrit (Bld) [Volume fraction] 34.9 % Low 35.0-47.0 [facility] Comment on above: Performed By: #### H EMDF, FERR3, LFT3, ABG, ICA, LDH3, DDI2, CRP2, MG3, PHOS3, BMP3M ####[address] Hemoglobin (Bld) [Mass/Vol] 10.8 g/dL Low 11.7-16.0 [facility] Comment on above: Performed By: #### H EMDF, FERR3, LFT3, ABG, ICA, LDH3, DDI2, CRP2, MG3, PHOS3, BMP3M ####[address] Lymphocytes (Bld) [#/Vol] 0.6 10*3/uL Low 1.0-4.3 [facility] Comment on above: Performed By: #### H EMDF, FERR3, LFT3, ABG, ICA, LDH3, DDI2, CRP2, MG3, PHOS3, BMP3M ####[address] Lymphocytes/100 WBC (Bld) 5.0 % Low 20.0-40.0 [facility] Comment on above: Performed By: #### H EMDF, FERR3, LFT3, ABG, ICA, LDH3, DDI2, CRP2, MG3, PHOS3, BMP3M ####[address] MCH (RBC) [Entitic mass] 23.2 pg Low 26.0-34.0 [facility] Comment on above: Performed By: #### H EMDF, FERR3, LFT3, ABG, ICA, LDH3, DDI2, CRP2, MG3, PHOS3, BMP3M ####[address] MCHC 31.0 % Low 32.0-36.0 [facility] Comment on above: Performed By: #### H EMDF, FERR3, LFT3, ABG, ICA, LDH3, DDI2, CRP2, MG3, PHOS3, BMP3M ####[address] MCV (RBC) [Entitic vol] 74.7 fL Low 79.0-98.0 [facility] Comment on above: Performed By: #### H EMDF, FERR3, LFT3, ABG, ICA, LDH3, DDI2, CRP2, MG3, PHOS3, BMP3M ####[address] Monocytes (Bld) [#/Vol] 0.9 10*3/uL High 0.0-0.8 [facility] Comment on above: Performed By: #### H EMDF, FERR3, LFT3, ABG, ICA, LDH3, DDI2, CRP2, MG3, PHOS3, BMP3M ####[address] Monocytes/100 WBC (Bld) 7.9 % Normal 2.0-10.0 [facility] Comment on above: Performed By: #### H EMDF, FERR3, LFT3, ABG, ICA, LDH3, DDI2, CRP2, MG3, PHOS3, BMP3M ####[address] Platelet mean volume (Bld) [Entitic vol] 9.6 fL Normal 7.4-10.4 [facility] Comment on above: Performed By: #### H EMDF, FERR3, LFT3, ABG, ICA, LDH3, DDI2, CRP2, MG3, PHOS3, BMP3M ####[address] Platelets (Bld) [#/Vol] 108 10*3/uL Low 140-440 [facility] Comment on above: Performed By: #### H EMDF, FERR3, LFT3, ABG, ICA, LDH3, DDI2, CRP2, MG3, PHOS3, BMP3M ####[address] RBC (Bld) [#/Vol] 4.67 10*6/uL Normal 3.80-5.20 [facility] Comment on above: Performed By: #### H EMDF, FERR3, LFT3, ABG, ICA, LDH3, DDI2, CRP2, MG3, PHOS3, BMP3M ####[address] WBC (Bld) [#/Vol] 12.0 10*3/uL High 3.6-10.7 [facility] Comment on above: Performed By: #### H EMDF, FERR3, LFT3, ABG, ICA, LDH3, DDI2, CRP2, MG3, PHOS3, BMP3M ####[address] Hepatic Functionon 1 ALT [Catalytic activity/Vol] 64 U/L High 0-34 [facility] Comment on above: Result Comment: The ALT test is performed by an updated assay method.Please note that the reference intervals have beenchanged and are now sex specific. Performed By: #### H EMDF, FERR3, LFT3, ABG, ICA, LDH3, DDI2, CRP2, MG3, PHOS3, BMP3M ####[address] ALP [Catalytic activity/Vol] 78 U/L Normal 38-126 [facility] Comment on above: Performed By: #### H EMDF, FERR3, LFT3, ABG, ICA, LDH3, DDI2, CRP2, MG3, PHOS3, BMP3M ####[address] AST [Catalytic activity/Vol] 34 U/L Normal 15-46 [facility] Comment on above: Performed By: #### H EMDF, FERR3, LFT3, ABG, ICA, LDH3, DDI2, CRP2, MG3, PHOS3, BMP3M ####[address] Bilirubin [Mass/Vol] 1.0 mg/dL Normal 0.2-1.3 [facility] Comment on above: Performed By: #### H EMDF, FERR3, LFT3, ABG, ICA, LDH3, DDI2, CRP2, MG3, PHOS3, BMP3M ####[address] Protein [Mass/Vol] 6.2 g/dL Low 6.3-8.2 [facility] Comment on above: Performed By: #### H EMDF, FERR3, LFT3, ABG, ICA, LDH3, DDI2, CRP2, MG3, PHOS3, BMP3M ####[address] Bilirubin.indirect [Mass/Vol] 0.0 mg/dL Normal 0.0-0.3 [facility] Comment on above: Performed By: #### H EMDF, FERR3, LFT3, ABG, ICA, LDH3, DDI2, CRP2, MG3, PHOS3, BMP3M ####[id number] [place] [address] Albumin [Mass/Vol] 3.0 g/dL Low 3.5-5.0 [facility] Comment on above: Performed By: #### H EMDF, FERR3, LFT3, ABG, ICA, LDH3, DDI2, CRP2, MG3, PHOS3, BMP3M ####[address] [id number] LDHon 06-19-2021 LDH 333 U/L High 120-246 [facility] Comment on above: Performed By: #### H EMDF, FERR3, LFT3, ABG, ICA, LDH3, DDI2, CRP2, MG3, PHOS3, BMP3M ####[address] [address] Magnesiumon 06-19-2021 Magnesium [Mass/Vol] 2.5 mg/dL High 1.6-2.3 [facility] Comment on above: Performed By: #### H EMDF, FERR3, LFT3, ABG, ICA, LDH3, DDI2, CRP2, MG3, PHOS3, BMP3M ####[address] [address] Phosphoruson 06-19-2021 Phosphate [Mass/Vol] 2.5 mg/dL Normal 2.5-4.5 [facility] Comment on above: Performed By: #### H EMDF, FERR3, LFT3, ABG, ICA, LDH3, DDI2, CRP2, MG3, PHOS3, BMP3M ####[address] [address] Procalcitoninon 06-19-2021 Procalcitonin 0.10 ng/mL High 0.00-0.09 [facility] Comment on above: Performed By: #### P OLESYA ####[address] [address] Interpretation See Below Normal [facility] Comment on above: Result Comment: PCT <0.50 = Low risk of severe sepsis and/or septic shock.PCT >2.00 = High risk of severe sepsis and/or septic shock. Performed By: #### P OLESYA ####[address] [place], [place] STAIN GRAMon 06-19-2021 STAIN GRAM STAIN GRAM --> Statu s: F Moderate polymorphonuclear cells/lpf. Moderate epithelial cells/lpf. Rare gram positive cocci in pairs and chains. Moderate epithelial cells/lpf. Rare gram positive cocci in pairs and chains. Normal [facility] Comment on above: Performed By: #### S /GRM ####[address] [place], [place] #### CS/RE ####[address] [place] [address] [place], [place] Arterial Blood Gaseson 06-18 CO2 [Moles/Vol] 33.1 mmol/L High 23.0-27.0 [facility] Comment on above: Performed By: #### A BG ####[address] [place], [place] HCO3 (Bld) [Moles/Vol] 31.9 mmol/L High 21.0-25.0 [facility] Comment on above: Performed By: #### A BG ####[address] [address] [place], [place] Hemoglobin (Bld) [Mass/Vol] 12.3 g/dL Normal ScreenOnly [facility] Comment on above: Performed By: #### A BG ####[address] [place], [place] Oxygen (Bld) [Partial pressure] 73.2 mm[Hg] Low 80.0-100.0 [facility] Comment on above: Performed By: #### A BG ####[address] Oxygen saturation in Blood 93.9 % Low 95.0-100.0 [facility] Comment on above: Performed By: #### A BG ####[address] [place], [place] pCO2 41.5 mm[Hg] Normal 35.0-45.0 [facility] Comment on above: Performed By: #### A BG ####[address] [place], [place] pH 7.503 High 7.350-7.450 [facility] Comment on above: Performed By: #### A BG ####[address] [place], [place] Std Base Excess 8.0 mmol/L High -3.0-3.0 [facility] Comment on above: Performed By: #### A BG ####[address] FIO2 50% Normal [facility] Comment on above: Performed By: #### A BG ####[address] Basic Metabolic Panelon 07-2 0-2020 Anion gap [Moles/Vol] 6 mmol/L Normal 3-13 [facility] Comment on above: Performed By: #### P HOS3, BMP3M, CRP2, ICA, FERR3, HEMDF, LFT3, MG3, DDI2, LDH3 ####[address] [place], [place] Calcium [Mass/Vol] 8.3 mg/dL Low 8.4-10.4 [facility] Comment on above: Performed By: #### P HOS3, BMP3M, CRP2, ICA, FERR3, HEMDF, LFT3, MG3, DDI2, LDH3 ####[address] [place], [place] CO2 [Moles/Vol] 31 mmol/L High 22-30 [facility] Comment on above: Performed By: #### P HOS3, BMP3M, CRP2, ICA, FERR3, HEMDF, LFT3, MG3, DDI2, LDH3 ####[address] Glucose [Mass/Vol] 229 mg/dL High 70-100 [facility] Comment on above: Performed By: #### P HOS3, BMP3M, CRP2, ICA, FERR3, HEMDF, LFT3, MG3, DDI2, LDH3 ####[address] [place], [place] Urea nitrogen [Mass/Vol] 59 mg/dL High 7-20 [facility] Comment on above: Performed By: #### P HOS3, BMP3M, CRP2, ICA, FERR3, HEMDF, LFT3, MG3, DDI2, LDH3 ####[address] [place], [place] Creatinine [Mass/Vol] 0.71 mg/dL Normal 0.52-1.25 [facility] Comment on above: Performed By: #### P HOS3, BMP3M, CRP2, ICA, FERR3, HEMDF, LFT3, MG3, DDI2, LDH3 ####[address] [place], [place] eGFR OTHER > 90.0 Normal >60 [facility] Comment on above: Result Comment: KDIG O guidelines provide the following GFR categories:Stage GFR(ml/min/1.73 m2) TermsG1 >=90 Normal or highG2 60-89 Mildly decreased*G3a 45-59 Mildly to moderately qtwvmemkmG0f 30-44 Moderately to severely decreasedG4 15-29 Severely [...] ICA, FERR3, HEMDF, LFT3, MG3, DDI2, LDH3 ####[address] GFR/1.73 sq M.predicted among blacks MDRD (S/P/Bld) [Vol rate/Area] mL/min/{1.73_m2} Normal >60 [facility] Comment on above: Performed By: #### P HOS3, BMP3M, CRP2, ICA, FERR3, HEMDF, LFT3, MG3, DDI2, LDH3 ####[address] Potassium [Moles/Vol] 3.3 mmol/L Low 3.5-5.1 [facility] Comment on above: Performed By: #### P HOS3, BMP3M, CRP2, ICA, FERR3, HEMDF, LFT3, MG3, DDI2, LDH3 ####[address] Sodium [Moles/Vol] 140 mmol/L Normal 135-145 [facility] Comment on above: Performed By: #### P HOS3, BMP3M, CRP2, ICA, FERR3, HEMDF, LFT3, MG3, DDI2, LDH3 ####[address] Chloride [Moles/Vol] 104 mmol/L Normal 98-107 [facility] Comment on above: Performed By: #### P HOS3, BMP3M, CRP2, ICA, FERR3, HEMDF, LFT3, MG3, DDI2, LDH3 ####[address] C-Reactive Proteinon 021 CRP [Mass/Vol] 20.6 mg/L High 0.0-6.0 [facility] Comment on above: Result Comment: . Performed By: #### P HOS3, BMP3M, CRP2, ICA, FERR3, HEMDF, LFT3, MG3, DDI2, LDH3 ####[address] CR Abdomen APon 06-18-2021 CR Abdomen AP Normal [facility] CR Chest Portableon 06-18-20 21 CR Chest Portable Normal [facility] CULTURE BLOODon 06-18-2021 Microscopic examination of blood, culture CULTURE BLOOD --> Status: F No growth at 5 days. Normal [facility] Comment on above: Performed By: #### C /BLD ####[address] [place], [place] CULTURE BLOOD (Two)on 2020 Microscopic examination of blood, culture CULTURE BLOOD (Two) --> Status: F No growth at 5 days. Normal [facility] Comment on above: Performed By: #### C /BLT ####[address] [place], [place] CULTURE URINEon 06-18-2021 CULTURE URINE Normal [facility] Comment on above: Performed By: #### C /UR ####[address] [place] [address] [place], [place] Calcium,Ionizedon 06-18-2021 Ionized Ca,Measured 4.00 mg/dL Low 4.30-5.20 [facility] Comment on above: Performed By: #### P HOS3, BMP3M, CRP2, ICA, FERR3, HEMDF, LFT3, MG3, DDI2, LDH3 ####[address] [place], [place] pH, Ionized Calcium 7.42 Normal 7.31-7.46 [facility] Comment on above: Performed By: #### P HOS3, BMP3M, CRP2, ICA, FERR3, HEMDF, LFT3, MG3, DDI2, LDH3 ####[facility] [employer] [id number] [place], [place] D-Dimer, Innovanceon 021 D-Dimer, Innovance 12.05 mg/L High <0.19-0.50 [facility] Comment on above: Result Comment: Inno carrington D-Dimer values of <0.50 mg/L FEU can be used incombination with a pre-test probability model (e.g. Well's)to exclude pulmonary embolism (PE) disease, as well as jodi in the diagnosis of deep vein thrombosis (DVT). Performed By: #### P HOS3, BMP3M, CRP2, ICA, FERR3, HEMDF, LFT3, MG3, DDI2, LDH3 ####[facility] [employer] [id number] [facility] [place] [address] Ferritinon 06-18-2021 Ferritin [Mass/Vol] 139 ng/mL Normal 8-252 [facility] Comment on above: Performed By: #### P HOS3, BMP3M, CRP2, ICA, FERR3, HEMDF, LFT3, MG3, DDI2, LDH3 ####[facility] [employer] [id number] [place] [place] [address] Glucose,Bedsideon 06-18-2021 Glucose [Mass/Vol] 163 mg/dL High 70-100 [facility] Comment on above: Result Comment: Test performed by glucose meter. Results may be 10%-15% lowerthan serum/plasma values. (CLIA ID [id number]) Performed By: #### B GLU ####[facility] [employer] [id number] [place] [address] Glucose [Mass/Vol] 216 mg/dL High 70-100 [facility] Comment on above: Result Comment: Test performed by glucose meter. Results may be 10%-15% lowerthan serum/plasma values. (CLIA ID [id number]) Performed By: #### B GLU ####[facility] [employer] [address] [facility] [place] [address] Glucose [Mass/Vol] 196 mg/dL High 70-100 [facility] Comment on above: Result Comment: Test performed by glucose meter. Results may be 10%-15% lowerthan serum/plasma values. (CLIA ID [id number]) Performed By: #### B GLU ####[facility] [employer] [id number] [facility] [place] [address] Glucose [Mass/Vol] 192 mg/dL High 70-100 [facility] Comment on above: Result Comment: Test performed by glucose meter. Results may be 10%-15% lowerthan serum/plasma values. (CLIA ID [id number]) Performed By: #### B GLU ####[address] Glucose [Mass/Vol] 205 mg/dL High 70-100 [facility] Comment on above: Result Comment: Test performed by glucose meter. Results may be 10%-15% lowerthan serum/plasma values. (CLIA ID [id number]) Performed By: #### B GLU ####[address] Hemogram w/ Autodiffon 06-18 Abs Baso Cnt 0.0 10*3/uL Normal 0.0-0.2 [facility] Comment on above: Performed By: #### P HOS3, BMP3M, CRP2, ICA, FERR3, HEMDF, LFT3, MG3, DDI2, LDH3 ####[address] Abs Neutrophile Cnt 9.4 10*3/uL High 1.8-7.0 [facility] Comment on above: Performed By: #### P HOS3, BMP3M, CRP2, ICA, FERR3, HEMDF, LFT3, MG3, DDI2, LDH3 ####[address] Basophils/100 WBC (Bld) 0.0 % Normal 0.0-2.0 [facility] Comment on above: Performed By: #### P HOS3, BMP3M, CRP2, ICA, FERR3, HEMDF, LFT3, MG3, DDI2, LDH3 ####[address] Eosinophils (Bld) [#/Vol] 0.0 10*3/uL Normal 0.0-0.5 [facility] Comment on above: Performed By: #### P HOS3, BMP3M, CRP2, ICA, FERR3, HEMDF, LFT3, MG3, DDI2, LDH3 ####[address] Eosinophils/100 WBC (Bld) 0.1 % Low 1.0-6.0 [facility] Comment on above: Performed By: #### P HOS3, BMP3M, CRP2, ICA, FERR3, HEMDF, LFT3, MG3, DDI2, LDH3 ####[address] Erythrocyte distribution width (RBC) [Ratio] 21.3 % High 11.5-14.5 [facility] Comment on above: Performed By: #### P HOS3, BMP3M, CRP2, ICA, FERR3, HEMDF, LFT3, MG3, DDI2, LDH3 ####[address] Granulocytes/100 WBC (Bld) 84.9 % High 40.0-80.0 [facility] Comment on above: Performed By: #### P HOS3, BMP3M, CRP2, ICA, FERR3, HEMDF, LFT3, MG3, DDI2, LDH3 ####[address] Hematocrit (Bld) [Volume fraction] 34.3 % Low 35.0-47.0 [facility] Comment on above: Performed By: #### P HOS3, BMP3M, CRP2, ICA, FERR3, HEMDF, LFT3, MG3, DDI2, LDH3 ####[address] Hemoglobin (Bld) [Mass/Vol] 10.9 g/dL Low 11.7-16.0 [facility] Comment on above: Performed By: #### P HOS3, BMP3M, CRP2, ICA, FERR3, HEMDF, LFT3, MG3, DDI2, LDH3 ####[address] Lymphocytes (Bld) [#/Vol] 0.7 10*3/uL Low 1.0-4.3 [facility] Comment on above: Performed By: #### P HOS3, BMP3M, CRP2, ICA, FERR3, HEMDF, LFT3, MG3, DDI2, LDH3 ####[address] Lymphocytes/100 WBC (Bld) 6.5 % Low 20.0-40.0 [facility] Comment on above: Performed By: #### P HOS3, BMP3M, CRP2, ICA, FERR3, HEMDF, LFT3, MG3, DDI2, LDH3 ####[address] MCH (RBC) [Entitic mass] 23.2 pg Low 26.0-34.0 [facility] Comment on above: Performed By: #### P HOS3, BMP3M, CRP2, ICA, FERR3, HEMDF, LFT3, MG3, DDI2, LDH3 ####[address] MCHC 31.7 % Low 32.0-36.0 [facility] Comment on above: Performed By: #### P HOS3, BMP3M, CRP2, ICA, FERR3, HEMDF, LFT3, MG3, DDI2, LDH3 ####[address] MCV (RBC) [Entitic vol] 73.0 fL Low 79.0-98.0 [facility] Comment on above: Performed By: #### P HOS3, BMP3M, CRP2, ICA, FERR3, HEMDF, LFT3, MG3, DDI2, LDH3 ####[address] Monocytes (Bld) [#/Vol] 1.0 10*3/uL High 0.0-0.8 [facility] Comment on above: Performed By: #### P HOS3, BMP3M, CRP2, ICA, FERR3, HEMDF, LFT3, MG3, DDI2, LDH3 ####[address] Monocytes/100 WBC (Bld) 8.5 % Normal 2.0-10.0 [facility] Comment on above: Performed By: #### P HOS3, BMP3M, CRP2, ICA, FERR3, HEMDF, LFT3, MG3, DDI2, LDH3 ####[address] [place], [place] Platelet mean volume (Bld) [Entitic vol] 9.4 fL Normal 7.4-10.4 [facility] Comment on above: Performed By: #### P HOS3, BMP3M, CRP2, ICA, FERR3, HEMDF, LFT3, MG3, DDI2, LDH3 ####[address] [place], [place] Platelets (Bld) [#/Vol] 108 10*3/uL Low 140-440 [facility] Comment on above: Performed By: #### P HOS3, BMP3M, CRP2, ICA, FERR3, HEMDF, LFT3, MG3, DDI2, LDH3 ####[address] RBC (Bld) [#/Vol] 4.71 10*6/uL Normal 3.80-5.20 [facility] Comment on above: Performed By: #### P HOS3, BMP3M, CRP2, ICA, FERR3, HEMDF, LFT3, MG3, DDI2, LDH3 ####[address] WBC (Bld) [#/Vol] 11.1 10*3/uL High 3.6-10.7 [facility] Comment on above: Performed By: #### P HOS3, BMP3M, CRP2, ICA, FERR3, HEMDF, LFT3, MG3, DDI2, LDH3 ####[address] [place], [place] Hepatic Functionon 1 ALP [Catalytic activity/Vol] 78 U/L Normal 38-126 [facility] Comment on above: Performed By: #### P HOS3, BMP3M, CRP2, ICA, FERR3, HEMDF, LFT3, MG3, DDI2, LDH3 ####[address] ALT [Catalytic activity/Vol] 86 U/L High 0-34 [facility] Comment on above: Result Comment: The ALT test is performed by an updated assay method.Please note that the reference intervals have beenchanged and are now sex specific. Performed By: #### P HOS3, BMP3M, CRP2, ICA, FERR3, HEMDF, LFT3, MG3, DDI2, LDH3 ####[address] AST [Catalytic activity/Vol] 32 U/L Normal 15-46 [facility] Comment on above: Performed By: #### P HOS3, BMP3M, CRP2, ICA, FERR3, HEMDF, LFT3, MG3, DDI2, LDH3 ####[address] Bilirubin [Mass/Vol] 0.6 mg/dL Normal 0.2-1.3 [facility] Comment on above: Performed By: #### P HOS3, BMP3M, CRP2, ICA, FERR3, HEMDF, LFT3, MG3, DDI2, LDH3 ####[address] [place], [place] Bilirubin.indirect [Mass/Vol] 0.0 mg/dL Normal 0.0-0.3 [facility] Comment on above: Performed By: #### P HOS3, BMP3M, CRP2, ICA, FERR3, HEMDF, LFT3, MG3, DDI2, LDH3 ####[address] Protein [Mass/Vol] 6.1 g/dL Low 6.3-8.2 [facility] Comment on above: Performed By: #### P HOS3, BMP3M, CRP2, ICA, FERR3, HEMDF, LFT3, MG3, DDI2, LDH3 ####[address] Albumin [Mass/Vol] 3.1 g/dL Low 3.5-5.0 [facility] Comment on above: Performed By: #### P HOS3, BMP3M, CRP2, ICA, FERR3, HEMDF, LFT3, MG3, DDI2, LDH3 ####[address] [place] [address] LDHon 06-18-2021 LDH 290 U/L High 120-246 [facility] Comment on above: Performed By: #### P HOS3, BMP3M, CRP2, ICA, FERR3, HEMDF, LFT3, MG3, DDI2, LDH3 ####[address] [place], [place] Magnesiumon 06-18-2021 Magnesium [Mass/Vol] 2.3 mg/dL Normal 1.6-2.3 [facility] Comment on above: Performed By: #### P HOS3, BMP3M, CRP2, ICA, FERR3, HEMDF, LFT3, MG3, DDI2, LDH3 ####[address] Phosphoruson 06-18-2021 Phosphate [Mass/Vol] 3.4 mg/dL Normal 2.5-4.5 [facility] Comment on above: Performed By: #### P HOS3, BMP3M, CRP2, ICA, FERR3, HEMDF, LFT3, MG3, DDI2, LDH3 ####[address] [place], [place] Basic Metabolic Panelon 05-30 Calcium [Mass/Vol] 8.6 mg/dL Normal 8.4-10.4 [facility] Comment on above: Performed By: #### P HOS3, LDH3, DDI2, CRP2, BMP3M, MG3, FERR3, HEMDF, LFT3, ICA ####[address] Anion gap [Moles/Vol] 6 mmol/L Normal 3-13 [facility] Comment on above: Performed By: #### P HOS3, LDH3, DDI2, CRP2, BMP3M, MG3, FERR3, HEMDF, LFT3, ICA ####[address] CO2 [Moles/Vol] 31 mmol/L High 22-30 [facility] Comment on above: Performed By: #### P HOS3, LDH3, DDI2, CRP2, BMP3M, MG3, FERR3, HEMDF, LFT3, ICA ####[address] Glucose [Mass/Vol] 258 mg/dL High 70-100 [facility] Comment on above: Performed By: #### P HOS3, LDH3, DDI2, CRP2, BMP3M, MG3, FERR3, HEMDF, LFT3, ICA ####[address] Urea nitrogen [Mass/Vol] 56 mg/dL High 7-20 [facility] Comment on above: Performed By: #### P HOS3, LDH3, DDI2, CRP2, BMP3M, MG3, FERR3, HEMDF, LFT3, ICA ####[address] Creatinine [Mass/Vol] 0.88 mg/dL Normal 0.52-1.25 [facility] Comment on above: Performed By: #### P HOS3, LDH3, DDI2, CRP2, BMP3M, MG3, FERR3, HEMDF, LFT3, ICA ####[address] GFR/1.73 sq M.predicted among blacks MDRD (S/P/Bld) [Vol rate/Area] 86.7 mL/min/{1.73_m2} Normal >60 [facility] Comment on above: Performed By: #### P HOS3, LDH3, DDI2, CRP2, BMP3M, MG3, FERR3, HEMDF, LFT3, ICA ####[address] GFR/1.73 sq M.predicted among non-blacks MDRD (S/P/Bld) [Vol rate/Area] 74.8 mL/min/{1.73_m2} Normal >60 [facility] Comment on above: Result Comment: KDIG O guidelines provide the following GFR categories:Stage GFR(ml/min/1.73 m2) TermsG1 >=90 Normal or highG2 60-89 Mildly decreased*G3a 45-59 Mildly to moderately irtuecareV2r 30-44 Moderately to severely decreasedG4 15-29 Severely [...] CRP2, BMP3M, MG3, FERR3, HEMDF, LFT3, ICA ####[address] [place], [place] Potassium [Moles/Vol] 3.7 mmol/L Normal 3.5-5.1 [facility] Comment on above: Performed By: #### P HOS3, LDH3, DDI2, CRP2, BMP3M, MG3, FERR3, HEMDF, LFT3, ICA ####[address] [place], [place] Sodium [Moles/Vol] 142 mmol/L Normal 135-145 [facility] Comment on above: Performed By: #### P HOS3, LDH3, DDI2, CRP2, BMP3M, MG3, FERR3, HEMDF, LFT3, ICA ####[address] [place], [place] Chloride [Moles/Vol] 105 mmol/L Normal 98-107 [facility] Comment on above: Performed By: #### P HOS3, LDH3, DDI2, CRP2, BMP3M, MG3, FERR3, HEMDF, LFT3, ICA ####[address] [place] [address] C-Reactive Proteinon 021 CRP [Mass/Vol] 7.8 mg/L High 0.0-6.0 [facility] Comment on above: Result Comment: . Performed By: #### P HOS3, LDH3, DDI2, CRP2, BMP3M, MG3, FERR3, HEMDF, LFT3, ICA ####[address] [place] [address] CR Chest Portableon 06-17-20 21 CR Chest Portable Normal [facility] Calcium,Ionizedon 06-17-2021 Ionized Ca,Measured 4.40 mg/dL Normal 4.30-5.20 [facility] Comment on above: Performed By: #### P HOS3, LDH3, DDI2, CRP2, BMP3M, MG3, FERR3, HEMDF, LFT3, ICA ####[address] [place] [address] pH, Ionized Calcium 7.46 Normal 7.31-7.46 [facility] Comment on above: Performed By: #### P HOS3, LDH3, DDI2, CRP2, BMP3M, MG3, FERR3, HEMDF, LFT3, ICA ####[address] [place] [address] D-Dimer, Innovanceon 021 D-Dimer, Innovance 13.33 mg/L High <0.19-0.50 [facility] Comment on above: Result Comment: Inno carrington D-Dimer values of <0.50 mg/L FEU can be used incombination with a pre-test probability model (e.g. Well's)to exclude pulmonary embolism (PE) disease, as well as jodi in the diagnosis of deep vein thrombosis (DVT). Performed By: #### P HOS3, LDH3, DDI2, CRP2, BMP3M, MG3, FERR3, HEMDF, LFT3, ICA ####[address] [place] [address] Ferritinon 06-17-2021 Ferritin [Mass/Vol] 209 ng/mL Normal 8-252 [facility] Comment on above: Performed By: #### P HOS3, LDH3, DDI2, CRP2, BMP3M, MG3, FERR3, HEMDF, LFT3, ICA ####[facility] [employer] [id number] [facility] [place] [address] Glucose,Bedsideon 06-17-2021 Glucose [Mass/Vol] 239 mg/dL High 70-100 [facility] Comment on above: Result Comment: Test performed by glucose meter. Results may be 10%-15% lowerthan serum/plasma values. (CLIA ID [id number]) Performed By: #### B GLU ####[address] [place] [address] Glucose [Mass/Vol] 268 mg/dL High 70-100 [facility] Comment on above: Result Comment: Test performed by glucose meter. Results may be 10%-15% lowerthan serum/plasma values. (CLIA ID [id number]) Performed By: #### B GLU ####[facility] [employer] [address] [place] [address] Glucose [Mass/Vol] 252 mg/dL High 70-100 [facility] Comment on above: Result Comment: Test performed by glucose meter. Results may be 10%-15% lowerthan serum/plasma values. (CLIA ID [id number]) Performed By: #### B GLU ####[facility] [employer] [address] [place] [address] Glucose [Mass/Vol] 260 mg/dL High 70-100 [facility] Comment on above: Result Comment: Test performed by glucose meter. Results may be 10%-15% lowerthan serum/plasma values. (CLIA ID [id number]) Performed By: #### B GLU ####[facility] [employer] [id number] [place] [address] Glucose [Mass/Vol] 272 mg/dL High 70-100 [facility] Comment on above: Result Comment: Test performed by glucose meter. Results may be 10%-15% lowerthan serum/plasma values. (CLIA ID [id number]) Performed By: #### B GLU ####[address] Hemogram w/ Autodiffon 06-17 Abs Baso Cnt 0.0 10*3/uL Normal 0.0-0.2 [facility] Comment on above: Performed By: #### P HOS3, LDH3, DDI2, CRP2, BMP3M, MG3, FERR3, HEMDF, LFT3, ICA ####[address] [place], [place] Abs Neutrophile Cnt 10.8 10*3/uL High 1.8-7.0 [facility] Comment on above: Performed By: #### P HOS3, LDH3, DDI2, CRP2, BMP3M, MG3, FERR3, HEMDF, LFT3, ICA ####[address] Basophils/100 WBC (Bld) 0.1 % Normal 0.0-2.0 [facility] Comment on above: Performed By: #### P HOS3, LDH3, DDI2, CRP2, BMP3M, MG3, FERR3, HEMDF, LFT3, ICA ####[address] Eosinophils (Bld) [#/Vol] 0.0 10*3/uL Normal 0.0-0.5 [facility] Comment on above: Performed By: #### P HOS3, LDH3, DDI2, CRP2, BMP3M, MG3, FERR3, HEMDF, LFT3, ICA ####[address] Eosinophils/100 WBC (Bld) 0.0 % Low 1.0-6.0 [facility] Comment on above: Performed By: #### P HOS3, LDH3, DDI2, CRP2, BMP3M, MG3, FERR3, HEMDF, LFT3, ICA ####[address] Erythrocyte distribution width (RBC) [Ratio] 21.7 % High 11.5-14.5 [facility] Comment on above: Performed By: #### P HOS3, LDH3, DDI2, CRP2, BMP3M, MG3, FERR3, HEMDF, LFT3, ICA ####[address] Granulocytes/100 WBC (Bld) 90.1 % High 40.0-80.0 [facility] Comment on above: Performed By: #### P HOS3, LDH3, DDI2, CRP2, BMP3M, MG3, FERR3, HEMDF, LFT3, ICA ####[address] Hematocrit (Bld) [Volume fraction] 36.3 % Normal 35.0-47.0 [facility] Comment on above: Performed By: #### P HOS3, LDH3, DDI2, CRP2, BMP3M, MG3, FERR3, HEMDF, LFT3, ICA ####[address] Hemoglobin (Bld) [Mass/Vol] 11.3 g/dL Low 11.7-16.0 [facility] Comment on above: Performed By: #### P HOS3, LDH3, DDI2, CRP2, BMP3M, MG3, FERR3, HEMDF, LFT3, ICA ####[address] Lymphocytes (Bld) [#/Vol] 0.6 10*3/uL Low 1.0-4.3 [facility] Comment on above: Performed By: #### P HOS3, LDH3, DDI2, CRP2, BMP3M, MG3, FERR3, HEMDF, LFT3, ICA ####[address] Lymphocytes/100 WBC (Bld) 4.7 % Low 20.0-40.0 [facility] Comment on above: Performed By: #### P HOS3, LDH3, DDI2, CRP2, BMP3M, MG3, FERR3, HEMDF, LFT3, ICA ####[address] MCH (RBC) [Entitic mass] 23.1 pg Low 26.0-34.0 [facility] Comment on above: Performed By: #### P HOS3, LDH3, DDI2, CRP2, BMP3M, MG3, FERR3, HEMDF, LFT3, ICA ####[address] MCHC 31.3 % Low 32.0-36.0 [facility] Comment on above: Performed By: #### P HOS3, LDH3, DDI2, CRP2, BMP3M, MG3, FERR3, HEMDF, LFT3, ICA ####[address] MCV (RBC) [Entitic vol] 74.0 fL Low 79.0-98.0 [facility] Comment on above: Performed By: #### P HOS3, LDH3, DDI2, CRP2, BMP3M, MG3, FERR3, HEMDF, LFT3, ICA ####[address] Monocytes (Bld) [#/Vol] 0.6 10*3/uL Normal 0.0-0.8 [facility] Comment on above: Performed By: #### P HOS3, LDH3, DDI2, CRP2, BMP3M, MG3, FERR3, HEMDF, LFT3, ICA ####[address] Monocytes/100 WBC (Bld) 5.1 % Normal 2.0-10.0 [facility] Comment on above: Performed By: #### P HOS3, LDH3, DDI2, CRP2, BMP3M, MG3, FERR3, HEMDF, LFT3, ICA ####[address] Platelet mean volume (Bld) [Entitic vol] 9.4 fL Normal 7.4-10.4 [facility] Comment on above: Performed By: #### P HOS3, LDH3, DDI2, CRP2, BMP3M, MG3, FERR3, HEMDF, LFT3, ICA ####[address] Platelets (Bld) [#/Vol] 148 10*3/uL Normal 140-440 [facility] Comment on above: Performed By: #### P HOS3, LDH3, DDI2, CRP2, BMP3M, MG3, FERR3, HEMDF, LFT3, ICA ####[address] RBC (Bld) [#/Vol] 4.91 10*6/uL Normal 3.80-5.20 [facility] Comment on above: Performed By: #### P HOS3, LDH3, DDI2, CRP2, BMP3M, MG3, FERR3, HEMDF, LFT3, ICA ####[address] [place], [place] WBC (Bld) [#/Vol] 12.0 10*3/uL High 3.6-10.7 [facility] Comment on above: Performed By: #### P HOS3, LDH3, DDI2, CRP2, BMP3M, MG3, FERR3, HEMDF, LFT3, ICA ####[address] Hepatic Functionon 1 ALP [Catalytic activity/Vol] 87 U/L Normal 38-126 [facility] Comment on above: Performed By: #### P HOS3, LDH3, DDI2, CRP2, BMP3M, MG3, FERR3, HEMDF, LFT3, ICA ####[address] ALT [Catalytic activity/Vol] 102 U/L High 0-34 [facility] Comment on above: Result Comment: The ALT test is performed by an updated assay method.Please note that the reference intervals have beenchanged and are now sex specific. Performed By: #### P HOS3, LDH3, DDI2, CRP2, BMP3M, MG3, FERR3, HEMDF, LFT3, ICA ####[address] [place], [place] AST [Catalytic activity/Vol] 55 U/L High 15-46 [facility] Comment on above: Performed By: #### P HOS3, LDH3, DDI2, CRP2, BMP3M, MG3, FERR3, HEMDF, LFT3, ICA ####[address] [place], [place] Bilirubin [Mass/Vol] 0.7 mg/dL Normal 0.2-1.3 [facility] Comment on above: Performed By: #### P HOS3, LDH3, DDI2, CRP2, BMP3M, MG3, FERR3, HEMDF, LFT3, ICA ####[address] Bilirubin.indirect [Mass/Vol] 0.0 mg/dL Normal 0.0-0.3 [facility] Comment on above: Performed By: #### P HOS3, LDH3, DDI2, CRP2, BMP3M, MG3, FERR3, HEMDF, LFT3, ICA ####[address] Protein [Mass/Vol] 6.4 g/dL Normal 6.3-8.2 [facility] Comment on above: Performed By: #### P HOS3, LDH3, DDI2, CRP2, BMP3M, MG3, FERR3, HEMDF, LFT3, ICA ####[address] [place], [place] Albumin [Mass/Vol] 3.3 g/dL Low 3.5-5.0 [facility] Comment on above: Performed By: #### P HOS3, LDH3, DDI2, CRP2, BMP3M, MG3, FERR3, HEMDF, LFT3, ICA ####[address] [place] [address] LDHon 06-17-2021 LDH 374 U/L High 120-246 [facility] Comment on above: Performed By: #### P HOS3, LDH3, DDI2, CRP2, BMP3M, MG3, FERR3, HEMDF, LFT3, ICA ####[address] [place] [address] Magnesiumon 06-17-2021 Magnesium [Mass/Vol] 2.5 mg/dL High 1.6-2.3 [facility] Comment on above: Performed By: #### P HOS3, LDH3, DDI2, CRP2, BMP3M, MG3, FERR3, HEMDF, LFT3, ICA ####[address] Phosphoruson 06-17-2021 Phosphate [Mass/Vol] 4.1 mg/dL Normal 2.5-4.5 [facility] Comment on above: Performed By: #### P HOS3, LDH3, DDI2, CRP2, BMP3M, MG3, FERR3, HEMDF, LFT3, ICA ####[address] . [place] [address] Arterial Blood Gaseson 06-16 CO2 [Moles/Vol] 32.9 mmol/L High 23.0-27.0 [facility] Comment on above: Performed By: #### A BG ####[address] . [place], [place] HCO3 (Bld) [Moles/Vol] 31.6 mmol/L High 21.0-25.0 [facility] Comment on above: Performed By: #### A BG ####[address] [place], [place] Hemoglobin (Bld) [Mass/Vol] 12.7 g/dL Normal ScreenOnly [facility] Comment on above: Performed By: #### A BG ####[address] Oxygen (Bld) [Partial pressure] 84.9 mm[Hg] Normal 80.0-100.0 [facility] Comment on above: Performed By: #### A BG ####[address] Oxygen saturation in Blood 95.6 % Normal 95.0-100.0 [facility] Comment on above: Performed By: #### A BG ####[address] pCO2 42.5 mm[Hg] Normal 35.0-45.0 [facility] Comment on above: Performed By: #### A BG ####[address] pH 7.489 High 7.350-7.450 [facility] Comment on above: Performed By: #### A BG ####[address] Std Base Excess 7.5 mmol/L High -3.0-3.0 [facility] Comment on above: Performed By: #### A BG ####[address] FIO2 No data Normal [facility] Comment on above: Performed By: #### A BG ####[address] Basic Metabolic Panelon 07- Chloride [Moles/Vol] 107 mmol/L Normal 98-107 [facility] Comment on above: Performed By: #### C RP2, BMP3M, FERR3, LDH3, DDI2, MG3, ICA, LFT3, PHOS3 ####[address] [place], [place] Sodium [Moles/Vol] 145 mmol/L Normal 135-145 [facility] Comment on above: Performed By: #### C RP2, BMP3M, FERR3, LDH3, DDI2, MG3, ICA, LFT3, PHOS3 ####[address] [place], [place] Calcium [Mass/Vol] 8.8 mg/dL Normal 8.4-10.4 [facility] Comment on above: Performed By: #### C RP2, BMP3M, FERR3, LDH3, DDI2, MG3, ICA, LFT3, PHOS3 ####[address] [place], [place] Anion gap [Moles/Vol] 6 mmol/L Normal 3-13 [facility] Comment on above: Performed By: #### C RP2, BMP3M, FERR3, LDH3, DDI2, MG3, ICA, LFT3, PHOS3 ####[address] [place], [place] CO2 [Moles/Vol] 32 mmol/L High 22-30 [facility] Comment on above: Performed By: #### C RP2, BMP3M, FERR3, LDH3, DDI2, MG3, ICA, LFT3, PHOS3 ####[address] [place], [place] Glucose [Mass/Vol] 223 mg/dL High 70-100 [facility] Comment on above: Performed By: #### C RP2, BMP3M, FERR3, LDH3, DDI2, MG3, ICA, LFT3, PHOS3 ####[address] [place], [place] Urea nitrogen [Mass/Vol] 56 mg/dL High 7-20 [facility] Comment on above: Performed By: #### C RP2, BMP3M, FERR3, LDH3, DDI2, MG3, ICA, LFT3, PHOS3 ####[address] [place], [place] Creatinine [Mass/Vol] 0.90 mg/dL Normal 0.52-1.25 [facility] Comment on above: Performed By: #### C RP2, BMP3M, FERR3, LDH3, DDI2, MG3, ICA, LFT3, PHOS3 ####[address] [place], [place] GFR/1.73 sq M.predicted among blacks MDRD (S/P/Bld) [Vol rate/Area] 84.4 mL/min/{1.73_m2} Normal >60 [facility] Comment on above: Performed By: #### C RP2, BMP3M, FERR3, LDH3, DDI2, MG3, ICA, LFT3, PHOS3 ####[address] [place], [place] GFR/1.73 sq M.predicted among non-blacks MDRD (S/P/Bld) [Vol rate/Area] 72.8 mL/min/{1.73_m2} Normal >60 [facility] Comment on above: Result Comment: KDIG O guidelines provide the following GFR categories:Stage GFR(ml/min/1.73 m2) TermsG1 >=90 Normal or highG2 60-89 Mildly decreased*G3a 45-59 Mildly to moderately [id number] 30-44 Moderately to severely decreasedG4 15-29 Severely [...] FERR3, LDH3, DDI2, MG3, ICA, LFT3, PHOS3 ####[facility] [employer] [id number] [place], [place] Potassium [Moles/Vol] 4.2 mmol/L Normal 3.5-5.1 [facility] Comment on above: Performed By: #### C RP2, BMP3M, FERR3, LDH3, DDI2, MG3, ICA, LFT3, PHOS3 ####[address] C-Reactive Proteinon 021 CRP [Mass/Vol] 7.8 mg/L High 0.0-6.0 [facility] Comment on above: Result Comment: . Performed By: #### C RP2, BMP3M, FERR3, LDH3, DDI2, MG3, ICA, LFT3, PHOS3 ####[address] [place], [place] CR Chest Portableon 06-16-20 21 CR Chest Portable Normal [facility] Calcium,Ionizedon 06-16-2021 Ionized Ca,Measured 4.40 mg/dL Normal 4.30-5.20 [facility] Comment on above: Performed By: #### C RP2, BMP3M, FERR3, LDH3, DDI2, MG3, ICA, LFT3, PHOS3 ####[facility] [employer] [id number] [place], [place] pH, Ionized Calcium 7.51 High 7.31-7.46 [facility] Comment on above: Performed By: #### C RP2, BMP3M, FERR3, LDH3, DDI2, MG3, ICA, LFT3, PHOS3 ####[facility] [employer] [address] [place], [place] Complete Urinalysison 2020 Appearance (U) Ex.Turbid Abnormal Clear [facility] Comment on above: Result Comment: . Performed By: #### C UA2 ####[facility] [employer] [id number] [place], [place] Bacteria Moderate Abnormal Negative [facility] Comment on above: Result Comment: . Performed By: #### C UA2 ####[facility] [employer] [address] Bilirubin,Urine Negative Normal Negative [facility] Comment on above: Result Comment: . Performed By: #### C UA2 ####[facility] [employer] [address] Color (U) Light-Yellow Normal Lt. Yellow [facility] Comment on above: Result Comment: . Performed By: #### C UA2 ####[address] . [place], [place] Glucose Ql (U) Normal Normal Normal (<70) [facility] Comment on above: Result Comment: . Performed By: #### C UA2 ####[address] [place], [place] Ketone,Urine Negative Normal Negative [facility] Comment on above: Result Comment: . Performed By: #### C UA2 ####[address] [place], [place] Leukocytes,Urine 250 [place]/uL Abnormal Negative [facility] Comment on above: Result Comment: . Performed By: #### C UA2 ####[address] [place], [place] Mucous Threads Many Abnormal Negative [facility] Comment on above: Result Comment: . Performed By: #### C UA2 ####[address] [place], [place] Nitrites,Urine Negative Normal Negative [facility] Comment on above: Result Comment: . Performed By: #### C UA2 ####[address] Occult Blood,Urine > 1.0 Abnormal Negative [facility] Comment on above: Result Comment: . Performed By: #### C UA2 ####[address] [place], [place] pH,Urine 5.5 Normal 5.0-8.0 [facility] Comment on above: Result Comment: . Performed By: #### C UA2 ####[address] RBC LM.HPF (Urine sed) [#/Area] /[HPF] Abnormal 0-2 [facility] Comment on above: Result Comment: . Performed By: #### C UA2 ####[address] Specific [place],Urine 1.008 Normal 1.005 - 1.030 [facility] Comment on above: Result Comment: . Performed By: #### C UA2 ####[facility] [place] [address] Squamous Epithelial 0 - 2 Normal 3-5 [facility] Comment on above: Result Comment: . Performed By: #### C UA2 ####[address] [place] [address] Total Protein,Urine Negative Normal Negative [facility] Comment on above: Result Comment: . Performed By: #### C UA2 ####[address] [place] [address] Uric Acid Crystals Few Abnormal Negative [facility] Comment on above: Result Comment: . Performed By: #### C UA2 ####[address] [place] [address] Urobilinogen,Urine Normal Normal Normal (0-1) [facility] Comment on above: Result Comment: . Performed By: #### C UA2 ####[address] [place] [address] WBC, Urine 11 - 25 Abnormal 0-5 [facility] Comment on above: Result Comment: . Performed By: #### C UA2 ####[address] [place] [address] D-Dimer, Innovanceon 021 D-Dimer, Innovance 23.52 mg/L High <0.19-0.50 [facility] Comment on above: Result Comment: Inno carrington D-Dimer values of <0.50 mg/L FEU can be used incombination with a pre-test probability model (e.g. Well's)to exclude pulmonary embolism (PE) disease, as well as jodi in the diagnosis of deep vein thrombosis (DVT). Performed By: #### C RP2, BMP3M, FERR3, LDH3, DDI2, MG3, ICA, LFT3, PHOS3 ####[address] [place] [address] Ferritinon 06-16-2021 Ferritin [Mass/Vol] 291 ng/mL High 8-252 [facility] Comment on above: Performed By: #### C RP2, BMP3M, FERR3, LDH3, DDI2, MG3, ICA, LFT3, PHOS3 ####[address] [place] [address] Glucose,Bedsideon 06-16-2021 Glucose [Mass/Vol] 252 mg/dL High 70-100 [facility] Comment on above: Result Comment: Test performed by glucose meter. Results may be 10%-15% lowerthan serum/plasma values. (CLIA ID [id number]) Performed By: #### B GLU ####[address] [place] [address] Glucose [Mass/Vol] 273 mg/dL High 70-100 [facility] Comment on above: Result Comment: Test performed by glucose meter. Results may be 10%-15% lowerthan serum/plasma values. (CLIA ID [id number]) Performed By: #### B GLU ####[facility] [employer] [id number] [place] [address] Glucose [Mass/Vol] 220 mg/dL High 70-100 [facility] Comment on above: Result Comment: Test performed by glucose meter. Results may be 10%-15% lowerthan serum/plasma values. (CLIA ID [id number]) Performed By: #### B GLU ####[address] [place] [address] Glucose [Mass/Vol] 215 mg/dL High 70-100 [facility] Comment on above: Result Comment: Test performed by glucose meter. Results may be 10%-15% lowerthan serum/plasma values. (CLIA ID [id number]) Performed By: #### B GLU ####[address] [place] [address] Hepatic Functionon Albumin [Mass/Vol] 3.4 g/dL Low 3.5-5.0 [facility] Comment on above: Performed By: #### C RP2, BMP3M, FERR3, LDH3, DDI2, MG3, ICA, LFT3, PHOS3 ####[address] [place], [place] ALP [Catalytic activity/Vol] 83 U/L Normal 38-126 [facility] Comment on above: Performed By: #### C RP2, BMP3M, FERR3, LDH3, DDI2, MG3, ICA, LFT3, PHOS3 ####[address] [place], [place] ALT [Catalytic activity/Vol] 133 U/L High 0-34 [facility] Comment on above: Result Comment: The ALT test is performed by an updated assay method.Please note that the reference intervals have beenchanged and are now sex specific. Performed By: #### C RP2, BMP3M, FERR3, LDH3, DDI2, MG3, ICA, LFT3, PHOS3 ####[address] [place], [place] AST [Catalytic activity/Vol] 110 U/L High 15-46 [facility] Comment on above: Performed By: #### C RP2, BMP3M, FERR3, LDH3, DDI2, MG3, ICA, LFT3, PHOS3 ####[address] [place], [place] Bilirubin [Mass/Vol] 0.8 mg/dL Normal 0.2-1.3 [facility] Comment on above: Performed By: #### C RP2, BMP3M, FERR3, LDH3, DDI2, MG3, ICA, LFT3, PHOS3 ####[address] [place], [place] Protein [Mass/Vol] 6.6 g/dL Normal 6.3-8.2 [facility] Comment on above: Performed By: #### C RP2, BMP3M, FERR3, LDH3, DDI2, MG3, ICA, LFT3, PHOS3 ####[address] [place], [place] Bilirubin.indirect [Mass/Vol] 0.0 mg/dL Normal 0.0-0.3 [facility] Comment on above: Performed By: #### C RP2, BMP3M, FERR3, LDH3, DDI2, MG3, ICA, LFT3, PHOS3 ####[address] [place] [address] LDHon 06-16-2021 LDH 446 U/L High 120-246 [facility] Comment on above: Performed By: #### C RP2, BMP3M, FERR3, LDH3, DDI2, MG3, ICA, LFT3, PHOS3 ####[address] [address] Lactic Acidon 06-16-2021 Lactate [Moles/Vol] 0.9 mmol/L Normal 0.7-2.0 [facility] Comment on above: Performed By: #### L ACT3, PCAL ####[address] [address] Magnesiumon 06-16-2021 Magnesium [Mass/Vol] 2.6 mg/dL High 1.6-2.3 [facility] Comment on above: Performed By: #### C RP2, BMP3M, FERR3, LDH3, DDI2, MG3, ICA, LFT3, PHOS3 ####[address] [place] [address] Phosphoruson 06-16-2021 Phosphate [Mass/Vol] 4.5 mg/dL Normal 2.5-4.5 [facility] Comment on above: Performed By: #### C RP2, BMP3M, FERR3, LDH3, DDI2, MG3, ICA, LFT3, PHOS3 ####[address] [address] Procalcitoninon 06-16-2021 Procalcitonin 0.08 ng/mL Normal 0.00-0.09 [facility] Comment on above: Performed By: #### P OLESYA ####[address] [address] Procalcitonin 0.08 ng/mL Normal 0.00-0.09 [facility] Comment on above: Performed By: #### L ACT3, PCAL ####[address] [place], [place] Interpretation See Below Normal [facility] Comment on above: Result Comment: PCT <0.50 = Low risk of severe sepsis and/or septic shock.PCT >2.00 = High risk of severe sepsis and/or septic shock. Performed By: #### P OLESYA ####[address] Interpretation See Below Normal [facility] Comment on above: Result Comment: PCT <0.50 = Low risk of severe sepsis and/or septic shock.PCT >2.00 = High risk of severe sepsis and/or septic shock. Performed By: #### L ACT3, PCAL ####[address] Sodiumon 06-16-2021 Sodium [Moles/Vol] 144 mmol/L Normal 135-145 [facility] Comment on above: Performed By: #### N A3 ####[address] Staph Aureus Complete Nasalo n 06-16-2021 Staph Aureus Complete Nasal Normal [facility] Comment on above: Performed By: #### S APCR ####[address] Arterial Blood Gaseson 06-15 CO2 [Moles/Vol] 34.5 mmol/L High 23.0-27.0 [facility] Comment on above: Performed By: #### A BG ####[address] HCO3 (Bld) [Moles/Vol] 33.2 mmol/L High 21.0-25.0 [facility] Comment on above: Performed By: #### A BG ####[address] Hemoglobin (Bld) [Mass/Vol] 13.3 g/dL Normal ScreenOnly [facility] Comment on above: Performed By: #### A BG ####[address] [place], [place] Oxygen (Bld) [Partial pressure] 68.3 mm[Hg] Low 80.0-100.0 [facility] Comment on above: Performed By: #### A BG ####[address] [address] [place], [place] Oxygen saturation in Blood 92.8 % Low 95.0-100.0 [facility] Comment on above: Performed By: #### A BG ####[address] [place], [place] pCO2 41.8 mm[Hg] Normal 35.0-45.0 [facility] Comment on above: Performed By: #### A BG ####[address] pH 7.518 High 7.350-7.450 [facility] Comment on above: Performed By: #### A BG ####[address] Std Base Excess 9.4 mmol/L High -3.0-3.0 [facility] Comment on above: Performed By: #### A BG ####[address] FIO2 No data Normal [facility] Comment on above: Performed By: #### A BG ####[address] Basic Metabolic Panelon - Calcium [Mass/Vol] 9.1 mg/dL Normal 8.4-10.4 [facility] Comment on above: Performed By: #### I CA, DDI2, PHOS3, CRP2, MG3, BMP3M, HEMDF, LFT3, LDH3, FERR3 ####[address] Glucose [Mass/Vol] 157 mg/dL High 70-100 [facility] Comment on above: Performed By: #### I CA, DDI2, PHOS3, CRP2, MG3, BMP3M, HEMDF, LFT3, LDH3, FERR3 ####[address] [place], [place] Anion gap [Moles/Vol] 5 mmol/L Normal 3-13 [facility] Comment on above: Performed By: #### I CA, DDI2, PHOS3, CRP2, MG3, BMP3M, HEMDF, LFT3, LDH3, FERR3 ####[address] [place], [place] CO2 [Moles/Vol] 36 mmol/L High 22-30 [facility] Comment on above: Performed By: #### I CA, DDI2, PHOS3, CRP2, MG3, BMP3M, HEMDF, LFT3, LDH3, FERR3 ####[address] Urea nitrogen [Mass/Vol] 51 mg/dL High 7-20 [facility] Comment on above: Performed By: #### I CA, DDI2, PHOS3, CRP2, MG3, BMP3M, HEMDF, LFT3, LDH3, FERR3 ####[address] Creatinine [Mass/Vol] 0.88 mg/dL Normal 0.52-1.25 [facility] Comment on above: Performed By: #### I CA, DDI2, PHOS3, CRP2, MG3, BMP3M, HEMDF, LFT3, LDH3, FERR3 ####[address] GFR/1.73 sq M.predicted among blacks MDRD (S/P/Bld) [Vol rate/Area] 86.7 mL/min/{1.73_m2} Normal >60 [facility] Comment on above: Performed By: #### I CA, DDI2, PHOS3, CRP2, MG3, BMP3M, HEMDF, LFT3, LDH3, FERR3 ####[address] GFR/1.73 sq M.predicted among non-blacks MDRD (S/P/Bld) [Vol rate/Area] 74.8 mL/min/{1.73_m2} Normal >60 [facility] Comment on above: Result Comment: KDIG O guidelines provide the following GFR categories:Stage GFR(ml/min/1.73 m2) TermsG1 >=90 Normal or highG2 60-89 Mildly decreased*G3a 45-59 Mildly to moderately [id number] 30-44 Moderately to severely decreasedG4 15-29 Severely [...] CRP2, MG3, BMP3M, HEMDF, LFT3, LDH3, FERR3 ####[address] [place], [place] Potassium [Moles/Vol] 4.5 mmol/L Normal 3.5-5.1 [facility] Comment on above: Performed By: #### I CA, DDI2, PHOS3, CRP2, MG3, BMP3M, HEMDF, LFT3, LDH3, FERR3 ####[address] [place], [place] Sodium [Moles/Vol] 146 mmol/L High 135-145 [facility] Comment on above: Performed By: #### I CA, DDI2, PHOS3, CRP2, MG3, BMP3M, HEMDF, LFT3, LDH3, FERR3 ####[address] [place] [address] Chloride [Moles/Vol] 106 mmol/L Normal 98-107 [facility] Comment on above: Performed By: #### I CA, DDI2, PHOS3, CRP2, MG3, BMP3M, HEMDF, LFT3, LDH3, FERR3 ####[address] [place] [address] C-Reactive Proteinon 021 CRP [Mass/Vol] 7.0 mg/L High 0.0-6.0 [facility] Comment on above: Result Comment: . Performed By: #### I CA, DDI2, PHOS3, CRP2, MG3, BMP3M, HEMDF, LFT3, LDH3, FERR3 ####[address] [place] [address] CR Chest Portableon 06-15-20 21 CR Chest Portable Normal [facility] Calcium,Ionizedon 06-15-2021 Ionized Ca,Measured 4.00 mg/dL Low 4.30-5.20 [facility] Comment on above: Performed By: #### I CA, DDI2, PHOS3, CRP2, MG3, BMP3M, HEMDF, LFT3, LDH3, FERR3 ####[address] [address] pH, Ionized Calcium 7.52 High 7.31-7.46 [facility] Comment on above: Performed By: #### I CA, DDI2, PHOS3, CRP2, MG3, BMP3M, HEMDF, LFT3, LDH3, FERR3 ####[address] [address] D-Dimer, Innovanceon 021 D-Dimer, Innovance 25.22 mg/L High <0.19-0.50 [facility] Comment on above: Result Comment: Inno carrington D-Dimer values of <0.50 mg/L FEU can be used incombination with a pre-test probability model (e.g. Well's)to exclude pulmonary embolism (PE) disease, as well as jodi in the diagnosis of deep vein thrombosis (DVT). Performed By: #### I CA, DDI2, PHOS3, CRP2, MG3, BMP3M, HEMDF, LFT3, LDH3, FERR3 ####[facility] [employer] [id number] [facility] [place] [address] Ferritinon 06-15-2021 Ferritin [Mass/Vol] 123 ng/mL Normal 8-252 [facility] Comment on above: Performed By: #### I CA, DDI2, PHOS3, CRP2, MG3, BMP3M, HEMDF, LFT3, LDH3, FERR3 ####[facility] [employer] [id number] [facility] [place] [address] Glucose,Bedsideon 06-15-2021 Glucose [Mass/Vol] 163 mg/dL High 70-100 [facility] Comment on above: Result Comment: Test performed by glucose meter. Results may be 10%-15% lowerthan serum/plasma values. (CLIA ID [id number]) Performed By: #### B GLU ####[facility] [employer] [id number] [place] [address] Glucose [Mass/Vol] 187 mg/dL High 70-100 [facility] Comment on above: Result Comment: Test performed by glucose meter. Results may be 10%-15% lowerthan serum/plasma values. (CLIA ID [id number]) Performed By: #### B GLU ####[facility] [address] [place] [address] Glucose [Mass/Vol] 148 mg/dL High 70-100 [facility] Comment on above: Result Comment: Test performed by glucose meter. Results may be 10%-15% lowerthan serum/plasma values. (CLIA ID [id number]) Performed By: #### B GLU ####[facility] [employer] [id number] [place] [address] Glucose [Mass/Vol] 186 mg/dL High 70-100 [facility] Comment on above: Result Comment: Test performed by glucose meter. Results may be 10%-15% lowerthan serum/plasma values. (CLIA ID [id number]) Performed By: #### B GLU ####[facility] [employer] [id number] [facility] [place] [place] [address] Hemogram w/ Autodiffon 06-15 Abs Baso Cnt 0.0 10*3/uL Normal 0.0-0.2 [facility] Comment on above: Performed By: #### I CA, DDI2, PHOS3, CRP2, MG3, BMP3M, HEMDF, LFT3, LDH3, FERR3 ####[address] Abs Neutrophile Cnt 12.2 10*3/uL High 1.8-7.0 [facility] Comment on above: Performed By: #### I CA, DDI2, PHOS3, CRP2, MG3, BMP3M, HEMDF, LFT3, LDH3, FERR3 ####[address] Basophils/100 WBC (Bld) 0.2 % Normal 0.0-2.0 [facility] Comment on above: Performed By: #### I CA, DDI2, PHOS3, CRP2, MG3, BMP3M, HEMDF, LFT3, LDH3, FERR3 ####[address] Eosinophils (Bld) [#/Vol] 0.0 10*3/uL Normal 0.0-0.5 [facility] Comment on above: Performed By: #### I CA, DDI2, PHOS3, CRP2, MG3, BMP3M, HEMDF, LFT3, LDH3, FERR3 ####[address] Eosinophils/100 WBC (Bld) 0.0 % Low 1.0-6.0 [facility] Comment on above: Performed By: #### I CA, DDI2, PHOS3, CRP2, MG3, BMP3M, HEMDF, LFT3, LDH3, FERR3 ####[address] Erythrocyte distribution width (RBC) [Ratio] 21.8 % High 11.5-14.5 [facility] Comment on above: Performed By: #### I CA, DDI2, PHOS3, CRP2, MG3, BMP3M, HEMDF, LFT3, LDH3, FERR3 ####[address] Granulocytes/100 WBC (Bld) 84.4 % High 40.0-80.0 [facility] Comment on above: Performed By: #### I CA, DDI2, PHOS3, CRP2, MG3, BMP3M, HEMDF, LFT3, LDH3, FERR3 ####[address] Hematocrit (Bld) [Volume fraction] 39.6 % Normal 35.0-47.0 [facility] Comment on above: Performed By: #### I CA, DDI2, PHOS3, CRP2, MG3, BMP3M, HEMDF, LFT3, LDH3, FERR3 ####[address] Hemoglobin (Bld) [Mass/Vol] 12.4 g/dL Normal 11.7-16.0 [facility] Comment on above: Performed By: #### I CA, DDI2, PHOS3, CRP2, MG3, BMP3M, HEMDF, LFT3, LDH3, FERR3 ####[address] Lymphocytes (Bld) [#/Vol] 0.9 10*3/uL Low 1.0-4.3 [facility] Comment on above: Performed By: #### I CA, DDI2, PHOS3, CRP2, MG3, BMP3M, HEMDF, LFT3, LDH3, FERR3 ####[address] Lymphocytes/100 WBC (Bld) 6.3 % Low 20.0-40.0 [facility] Comment on above: Performed By: #### I CA, DDI2, PHOS3, CRP2, MG3, BMP3M, HEMDF, LFT3, LDH3, FERR3 ####[address] MCH (RBC) [Entitic mass] 22.8 pg Low 26.0-34.0 [facility] Comment on above: Performed By: #### I CA, DDI2, PHOS3, CRP2, MG3, BMP3M, HEMDF, LFT3, LDH3, FERR3 ####[address] [place], [place] MCHC 31.2 % Low 32.0-36.0 [facility] Comment on above: Performed By: #### I CA, DDI2, PHOS3, CRP2, MG3, BMP3M, HEMDF, LFT3, LDH3, FERR3 ####[address] [place], [place] MCV (RBC) [Entitic vol] 73.1 fL Low 79.0-98.0 [facility] Comment on above: Performed By: #### I CA, DDI2, PHOS3, CRP2, MG3, BMP3M, HEMDF, LFT3, LDH3, FERR3 ####[address] [place], [place] Monocytes (Bld) [#/Vol] 1.3 10*3/uL High 0.0-0.8 [facility] Comment on above: Performed By: #### I CA, DDI2, PHOS3, CRP2, MG3, BMP3M, HEMDF, LFT3, LDH3, FERR3 ####[address] [place], [place] Monocytes/100 WBC (Bld) 9.1 % Normal 2.0-10.0 [facility] Comment on above: Performed By: #### I CA, DDI2, PHOS3, CRP2, MG3, BMP3M, HEMDF, LFT3, LDH3, FERR3 ####[address] [place], [place] Platelet mean volume (Bld) [Entitic vol] 8.7 fL Normal 7.4-10.4 [facility] Comment on above: Performed By: #### I CA, DDI2, PHOS3, CRP2, MG3, BMP3M, HEMDF, LFT3, LDH3, FERR3 ####[address] [place], [place] Platelets (Bld) [#/Vol] 209 10*3/uL Normal 140-440 [facility] Comment on above: Performed By: #### I CA, DDI2, PHOS3, CRP2, MG3, BMP3M, HEMDF, LFT3, LDH3, FERR3 ####[address] [place], [place] RBC (Bld) [#/Vol] 5.42 10*6/uL High 3.80-5.20 [facility] Comment on above: Performed By: #### I CA, DDI2, PHOS3, CRP2, MG3, BMP3M, HEMDF, LFT3, LDH3, FERR3 ####[address] [place], [place] WBC (Bld) [#/Vol] 14.4 10*3/uL High 3.6-10.7 [facility] Comment on above: Performed By: #### I CA, DDI2, PHOS3, CRP2, MG3, BMP3M, HEMDF, LFT3, LDH3, FERR3 ####[address] Hepatic Functionon 1 ALP [Catalytic activity/Vol] 87 U/L Normal 38-126 [facility] Comment on above: Performed By: #### I CA, DDI2, PHOS3, CRP2, MG3, BMP3M, HEMDF, LFT3, LDH3, FERR3 ####[address] ALT [Catalytic activity/Vol] 68 U/L High 0-34 [facility] Comment on above: Result Comment: The ALT test is performed by an updated assay method.Please note that the reference intervals have beenchanged and are now sex specific. Performed By: #### I CA, DDI2, PHOS3, CRP2, MG3, BMP3M, HEMDF, LFT3, LDH3, FERR3 ####[address] AST [Catalytic activity/Vol] 61 U/L High 15-46 [facility] Comment on above: Performed By: #### I CA, DDI2, PHOS3, CRP2, MG3, BMP3M, HEMDF, LFT3, LDH3, FERR3 ####[address] [place], [place] Bilirubin [Mass/Vol] 0.9 mg/dL Normal 0.2-1.3 [facility] Comment on above: Performed By: #### I CA, DDI2, PHOS3, CRP2, MG3, BMP3M, HEMDF, LFT3, LDH3, FERR3 ####[address] Bilirubin.indirect [Mass/Vol] 0.0 mg/dL Normal 0.0-0.3 [facility] Comment on above: Performed By: #### I CA, DDI2, PHOS3, CRP2, MG3, BMP3M, HEMDF, LFT3, LDH3, FERR3 ####[address] Protein [Mass/Vol] 6.9 g/dL Normal 6.3-8.2 [facility] Comment on above: Performed By: #### I CA, DDI2, PHOS3, CRP2, MG3, BMP3M, HEMDF, LFT3, LDH3, FERR3 ####[address] Albumin [Mass/Vol] 3.6 g/dL Normal 3.5-5.0 [facility] Comment on above: Performed By: #### I CA, DDI2, PHOS3, CRP2, MG3, BMP3M, HEMDF, LFT3, LDH3, FERR3 ####[address] LDHon 06-15-2021 LDH 446 U/L High 120-246 [facility] Comment on above: Performed By: #### I CA, DDI2, PHOS3, CRP2, MG3, BMP3M, HEMDF, LFT3, LDH3, FERR3 ####[address] [place], [place] Magnesiumon 06-15-2021 Magnesium [Mass/Vol] 2.5 mg/dL High 1.6-2.3 [facility] Comment on above: Performed By: #### I CA, DDI2, PHOS3, CRP2, MG3, BMP3M, HEMDF, LFT3, LDH3, FERR3 ####[address] [place], [place] Phosphoruson 06-15-2021 Phosphate [Mass/Vol] 4.2 mg/dL Normal 2.5-4.5 [facility] Comment on above: Performed By: #### I CA, DDI2, PHOS3, CRP2, MG3, BMP3M, HEMDF, LFT3, LDH3, FERR3 ####[address] [place], [place] STAIN GRAMon 06-15-2021 STAIN GRAM Normal [facility] Comment on above: Performed By: #### C S/RE ####[address] [place] [address] [address] [place], [place] #### S/GRM ####[address] VL Venous Duplex US Lower Ex t Bilateralon 06-15-2021 VL Venous Duplex US Lower Ext Bilateral Normal [facility] Arterial Blood Gaseson 06-14 CO2 [Moles/Vol] 33.3 mmol/L High 23.0-27.0 [facility] Comment on above: Performed By: #### A BG ####[address] [address] [place], [place] HCO3 (Bld) [Moles/Vol] 32.0 mmol/L High 21.0-25.0 [facility] Comment on above: Performed By: #### A BG ####[address] Hemoglobin (Bld) [Mass/Vol] 12.4 g/dL Normal ScreenOnly [facility] Comment on above: Performed By: #### A BG ####[address] [place], [place] Oxygen (Bld) [Partial pressure] 83.7 mm[Hg] Normal 80.0-100.0 [facility] Comment on above: Performed By: #### A BG ####[address] [place], [place] Oxygen saturation in Blood 95.6 % Normal 95.0-100.0 [facility] Comment on above: Performed By: #### A BG ####[address] [place], [place] pCO2 41.9 mm[Hg] Normal 35.0-45.0 [facility] Comment on above: Performed By: #### A BG ####[address] pH 7.501 High 7.350-7.450 [facility] Comment on above: Performed By: #### A BG ####[address] Std Base Excess 8.1 mmol/L High -3.0-3.0 [facility] Comment on above: Performed By: #### A BG ####[address] FIO2 No data Normal [facility] Comment on above: Performed By: #### A BG ####[address] Basic Metabolic Panelon 07-1 Calcium [Mass/Vol] 9.1 mg/dL Normal 8.4-10.4 [facility] Comment on above: Performed By: #### F ERR3, CRP2, LDH3, LFT3, PHOS3, DDI2, BMP3M, ICA, MG3, HEMDF ####[address] [place], [place] Anion gap [Moles/Vol] 5 mmol/L Normal 3-13 [facility] Comment on above: Performed By: #### F ERR3, CRP2, LDH3, LFT3, PHOS3, DDI2, BMP3M, ICA, MG3, HEMDF ####[address] [place], [place] CO2 [Moles/Vol] 33 mmol/L High 22-30 [facility] Comment on above: Performed By: #### F ERR3, CRP2, LDH3, LFT3, PHOS3, DDI2, BMP3M, ICA, MG3, HEMDF ####[address] [place], [place] Glucose [Mass/Vol] 134 mg/dL High 70-100 [facility] Comment on above: Performed By: #### F ERR3, CRP2, LDH3, LFT3, PHOS3, DDI2, BMP3M, ICA, MG3, HEMDF ####[address] Urea nitrogen [Mass/Vol] 53 mg/dL High 7-20 [facility] Comment on above: Performed By: #### F ERR3, CRP2, LDH3, LFT3, PHOS3, DDI2, BMP3M, ICA, MG3, HEMDF ####[address] [place], [place] Creatinine [Mass/Vol] 0.73 mg/dL Normal 0.52-1.25 [facility] Comment on above: Performed By: #### F ERR3, CRP2, LDH3, LFT3, PHOS3, DDI2, BMP3M, ICA, MG3, HEMDF ####[address] [place], [place] eGFR OTHER > 90.0 Normal >60 [facility] Comment on above: Result Comment: KDIG O guidelines provide the following GFR categories:Stage GFR(ml/min/1.73 m2) TermsG1 >=90 Normal or highG2 60-89 Mildly decreased*G3a 45-59 Mildly to moderately [id number] 30-44 Moderately to severely decreasedG4 15-29 Severely [...] LFT3, PHOS3, DDI2, BMP3M, ICA, MG3, HEMDF ####[address] [place], [place] GFR/1.73 sq M.predicted among blacks MDRD (S/P/Bld) [Vol rate/Area] mL/min/{1.73_m2} Normal >60 [facility] Comment on above: Performed By: #### F ERR3, CRP2, LDH3, LFT3, PHOS3, DDI2, BMP3M, ICA, MG3, HEMDF ####[address] [place], [place] Potassium [Moles/Vol] 4.6 mmol/L Normal 3.5-5.1 [facility] Comment on above: Performed By: #### F ERR3, CRP2, LDH3, LFT3, PHOS3, DDI2, BMP3M, ICA, MG3, HEMDF ####[address] [place], [place] Sodium [Moles/Vol] 148 mmol/L High 135-145 [facility] Comment on above: Performed By: #### F ERR3, CRP2, LDH3, LFT3, PHOS3, DDI2, BMP3M, ICA, MG3, HEMDF ####[address] [place], [place] Chloride [Moles/Vol] 110 mmol/L High 98-107 [facility] Comment on above: Performed By: #### F ERR3, CRP2, LDH3, LFT3, PHOS3, DDI2, BMP3M, ICA, MG3, HEMDF ####[address] [place] [address] C-Reactive Proteinon 021 CRP [Mass/Vol] 6.8 mg/L High 0.0-6.0 [facility] Comment on above: Result Comment: . Performed By: #### F ERR3, CRP2, LDH3, LFT3, PHOS3, DDI2, BMP3M, ICA, MG3, HEMDF ####[address] [place], [place] CR Chest Portableon 06-14-20 21 CR Chest Portable Normal [facility] CULT./ST. RESPIRATORYon 05-30 CULT./ST. RESPIRATORY CULT./ST. RESPIRAT ORY --> Status: F Moderate normal respiratory pretty. Normal [facility] Comment on above: Performed By: #### C S/RE, S/GRM ####[address] [place], [place] Calcium,Ionizedon 06-14-2021 Ionized Ca,Measured 4.60 mg/dL Normal 4.30-5.20 [facility] Comment on above: Performed By: #### F ERR3, CRP2, LDH3, LFT3, PHOS3, DDI2, BMP3M, ICA, MG3, HEMDF ####[address] [place], [place] pH, Ionized Calcium 7.48 High 7.31-7.46 [facility] Comment on above: Performed By: #### F ERR3, CRP2, LDH3, LFT3, PHOS3, DDI2, BMP3M, ICA, MG3, HEMDF ####[address] [place], [place] D-Dimer, Innovanceon 021 D-Dimer, Innovance 17.18 mg/L High <0.19-0.50 [facility] Comment on above: Result Comment: Inno carrington D-Dimer values of <0.50 mg/L FEU can be used incombination with a pre-test probability model (e.g. Well's)to exclude pulmonary embolism (PE) disease, as well as jodi in the diagnosis of deep vein thrombosis (DVT). Performed By: #### F ERR3, CRP2, LDH3, LFT3, PHOS3, DDI2, BMP3M, ICA, MG3, HEMDF ####[facility] [employer] [id number] [place] [address] Ferritinon 06-14-2021 Ferritin [Mass/Vol] 46 ng/mL Normal 8-252 [facility] Comment on above: Performed By: #### F ERR3, CRP2, LDH3, LFT3, PHOS3, DDI2, BMP3M, ICA, MG3, HEMDF ####[facility] [employer] [id number] [place] [place] [address] Glucose,Bedsideon 06-14-2021 Glucose [Mass/Vol] 209 mg/dL High 70-100 [facility] Comment on above: Result Comment: Test performed by glucose meter. Results may be 10%-15% lowerthan serum/plasma values. (CLIA ID [id number]) Performed By: #### B GLU ####[facility] [employer] [id number] [place] [place] [address] Glucose [Mass/Vol] 186 mg/dL High 70-100 [facility] Comment on above: Result Comment: Test performed by glucose meter. Results may be 10%-15% lowerthan serum/plasma values. (CLIA ID [id number]) Performed By: #### B GLU ####[facility] [employer] [id number] [place] [place] [address] Glucose [Mass/Vol] 138 mg/dL High 70-100 [facility] Comment on above: Result Comment: Test performed by glucose meter. Results may be 10%-15% lowerthan serum/plasma values. (CLIA ID [id number]) Performed By: #### B GLU ####[facility] [employer] [id number] [place] [place] [address] Glucose [Mass/Vol] 122 mg/dL High 70-100 [facility] Comment on above: Result Comment: Test performed by glucose meter. Results may be 10%-15% lowerthan serum/plasma values. (CLIA ID [id number]) Performed By: #### B GLU ####[address] Hemogram w/ Autodiffon 06-14 Abs Baso Cnt 0.0 10*3/uL Normal 0.0-0.2 [facility] Comment on above: Performed By: #### F ERR3, CRP2, LDH3, LFT3, PHOS3, DDI2, BMP3M, ICA, MG3, HEMDF ####[address] Abs Neutrophile Cnt 10.1 10*3/uL High 1.8-7.0 [facility] Comment on above: Performed By: #### F ERR3, CRP2, LDH3, LFT3, PHOS3, DDI2, BMP3M, ICA, MG3, HEMDF ####[address] Basophils/100 WBC (Bld) 0.2 % Normal 0.0-2.0 [facility] Comment on above: Performed By: #### F ERR3, CRP2, LDH3, LFT3, PHOS3, DDI2, BMP3M, ICA, MG3, HEMDF ####[address] Eosinophils (Bld) [#/Vol] 0.0 10*3/uL Normal 0.0-0.5 [facility] Comment on above: Performed By: #### F ERR3, CRP2, LDH3, LFT3, PHOS3, DDI2, BMP3M, ICA, MG3, HEMDF ####[address] Eosinophils/100 WBC (Bld) 0.1 % Low 1.0-6.0 [facility] Comment on above: Performed By: #### F ERR3, CRP2, LDH3, LFT3, PHOS3, DDI2, BMP3M, ICA, MG3, HEMDF ####[address], [place] Erythrocyte distribution width (RBC) [Ratio] 21.4 % High 11.5-14.5 [facility] Comment on above: Performed By: #### F ERR3, CRP2, LDH3, LFT3, PHOS3, DDI2, BMP3M, ICA, MG3, HEMDF ####[address] Granulocytes/100 WBC (Bld) 82.3 % High 40.0-80.0 [facility] Comment on above: Performed By: #### F ERR3, CRP2, LDH3, LFT3, PHOS3, DDI2, BMP3M, ICA, MG3, HEMDF ####[address] Hematocrit (Bld) [Volume fraction] 38.3 % Normal 35.0-47.0 [facility] Comment on above: Performed By: #### F ERR3, CRP2, LDH3, LFT3, PHOS3, DDI2, BMP3M, ICA, MG3, HEMDF ####[address] Hemoglobin (Bld) [Mass/Vol] 12.0 g/dL Normal 11.7-16.0 [facility] Comment on above: Performed By: #### F ERR3, CRP2, LDH3, LFT3, PHOS3, DDI2, BMP3M, ICA, MG3, HEMDF ####[address] Lymphocytes (Bld) [#/Vol] 1.2 10*3/uL Normal 1.0-4.3 [facility] Comment on above: Performed By: #### F ERR3, CRP2, LDH3, LFT3, PHOS3, DDI2, BMP3M, ICA, MG3, HEMDF ####[address] Lymphocytes/100 WBC (Bld) 9.5 % Low 20.0-40.0 [facility] Comment on above: Performed By: #### F ERR3, CRP2, LDH3, LFT3, PHOS3, DDI2, BMP3M, ICA, MG3, HEMDF ####[address] MCH (RBC) [Entitic mass] 22.4 pg Low 26.0-34.0 [facility] Comment on above: Performed By: #### F ERR3, CRP2, LDH3, LFT3, PHOS3, DDI2, BMP3M, ICA, MG3, HEMDF ####[address] [place], [place] MCHC 31.3 % Low 32.0-36.0 [facility] Comment on above: Performed By: #### F ERR3, CRP2, LDH3, LFT3, PHOS3, DDI2, BMP3M, ICA, MG3, HEMDF ####[address] [place], [place] MCV (RBC) [Entitic vol] 71.7 fL Low 79.0-98.0 [facility] Comment on above: Performed By: #### F ERR3, CRP2, LDH3, LFT3, PHOS3, DDI2, BMP3M, ICA, MG3, HEMDF ####[facility] [place], [place] Monocytes (Bld) [#/Vol] 1.0 10*3/uL High 0.0-0.8 [facility] Comment on above: Performed By: #### F ERR3, CRP2, LDH3, LFT3, PHOS3, DDI2, BMP3M, ICA, MG3, HEMDF ####[address] [place], [place] Monocytes/100 WBC (Bld) 7.9 % Normal 2.0-10.0 [facility] Comment on above: Performed By: #### F ERR3, CRP2, LDH3, LFT3, PHOS3, DDI2, BMP3M, ICA, MG3, HEMDF ####[address] [place], [place] Platelet mean volume (Bld) [Entitic vol] 8.4 fL Normal 7.4-10.4 [facility] Comment on above: Performed By: #### F ERR3, CRP2, LDH3, LFT3, PHOS3, DDI2, BMP3M, ICA, MG3, HEMDF ####[facility] [place], [place] Platelets (Bld) [#/Vol] 229 10*3/uL Normal 140-440 [facility] Comment on above: Performed By: #### F ERR3, CRP2, LDH3, LFT3, PHOS3, DDI2, BMP3M, ICA, MG3, HEMDF ####[address] [place], [place] RBC (Bld) [#/Vol] 5.33 10*6/uL High 3.80-5.20 [facility] Comment on above: Performed By: #### F ERR3, CRP2, LDH3, LFT3, PHOS3, DDI2, BMP3M, ICA, MG3, HEMDF ####[address] [place], [place] WBC (Bld) [#/Vol] 12.3 10*3/uL High 3.6-10.7 [facility] Comment on above: Performed By: #### F ERR3, CRP2, LDH3, LFT3, PHOS3, DDI2, BMP3M, ICA, MG3, HEMDF ####[address] [place], [place] Hepatic Functionon 1 ALT [Catalytic activity/Vol] 61 U/L High 0-34 [facility] Comment on above: Result Comment: The ALT test is performed by an updated assay method.Please note that the reference intervals have beenchanged and are now sex specific. Performed By: #### F ERR3, CRP2, LDH3, LFT3, PHOS3, DDI2, BMP3M, ICA, MG3, HEMDF ####[address] [place], [place] ALP [Catalytic activity/Vol] 89 U/L Normal 38-126 [facility] Comment on above: Performed By: #### F ERR3, CRP2, LDH3, LFT3, PHOS3, DDI2, BMP3M, ICA, MG3, HEMDF ####[address] [place], [place] AST [Catalytic activity/Vol] 44 U/L Normal 15-46 [facility] Comment on above: Performed By: #### F ERR3, CRP2, LDH3, LFT3, PHOS3, DDI2, BMP3M, ICA, MG3, HEMDF ####[address] [place], [place] Bilirubin [Mass/Vol] 0.6 mg/dL Normal 0.2-1.3 [facility] Comment on above: Performed By: #### F ERR3, CRP2, LDH3, LFT3, PHOS3, DDI2, BMP3M, ICA, MG3, HEMDF ####[address] [place], [place] Bilirubin.indirect [Mass/Vol] 0.0 mg/dL Normal 0.0-0.3 [facility] Comment on above: Performed By: #### F ERR3, CRP2, LDH3, LFT3, PHOS3, DDI2, BMP3M, ICA, MG3, HEMDF ####[address] [place], [place] Protein [Mass/Vol] 6.7 g/dL Normal 6.3-8.2 [facility] Comment on above: Performed By: #### F ERR3, CRP2, LDH3, LFT3, PHOS3, DDI2, BMP3M, ICA, MG3, HEMDF ####[address] [place], [place] Albumin [Mass/Vol] 3.5 g/dL Normal 3.5-5.0 [facility] Comment on above: Performed By: #### F ERR3, CRP2, LDH3, LFT3, PHOS3, DDI2, BMP3M, ICA, MG3, HEMDF ####[address] [place], [place] LDHon 06-14-2021 LDH 303 U/L High 120-246 [facility] Comment on above: Performed By: #### F ERR3, CRP2, LDH3, LFT3, PHOS3, DDI2, BMP3M, ICA, MG3, HEMDF ####[address] [place] [address] Magnesiumon 06-14-2021 Magnesium [Mass/Vol] 2.4 mg/dL High 1.6-2.3 [facility] Comment on above: Performed By: #### F ERR3, CRP2, LDH3, LFT3, PHOS3, DDI2, BMP3M, ICA, MG3, HEMDF ####[address] [place] [address] Phosphoruson 06-14-2021 Phosphate [Mass/Vol] 4.3 mg/dL Normal 2.5-4.5 [facility] Comment on above: Performed By: #### F ERR3, CRP2, LDH3, LFT3, PHOS3, DDI2, BMP3M, ICA, MG3, HEMDF ####[address] [place] [address] Sodiumon 06-14-2021 Sodium [Moles/Vol] 148 mmol/L High 135-145 [facility] Comment on above: Performed By: #### N A3 ####[address] [place] [address] Arterial Blood Gaseson 06-13 CO2 [Moles/Vol] 32.9 mmol/L High 23.0-27.0 [facility] Comment on above: Performed By: #### A BG ####[address] [place] [address] HCO3 (Bld) [Moles/Vol] 31.6 mmol/L High 21.0-25.0 [facility] Comment on above: Performed By: #### A BG ####[address] [place] [address] Hemoglobin (Bld) [Mass/Vol] 12.0 g/dL Normal ScreenOnly [facility] Comment on above: Performed By: #### A BG ####[address] [place], [place] Oxygen (Bld) [Partial pressure] 63.5 mm[Hg] Low 80.0-100.0 [facility] Comment on above: Performed By: #### A BG ####[address] [place] Oxygen saturation in Blood 92.1 % Low 95.0-100.0 [facility] Comment on above: Performed By: #### A BG ####[address] [place] pCO2 43.4 mm[Hg] Normal 35.0-45.0 [facility] Comment on above: Performed By: #### A BG ####[address] pH 7.480 High 7.350-7.450 [facility] Comment on above: Performed By: #### A BG ####[address] [place], [place] Std Base Excess 7.3 mmol/L High -3.0-3.0 [facility] Comment on above: Performed By: #### A BG ####[address] FIO2 No data Normal [facility] Comment on above: Performed By: #### A BG ####[address] [place], [place] CO2 [Moles/Vol] 36.5 mmol/L High 23.0-27.0 [facility] Comment on above: Performed By: #### A BG ####[address] [place], [place] HCO3 (Bld) [Moles/Vol] 35.1 mmol/L High 21.0-25.0 [facility] Comment on above: Performed By: #### A BG ####[address] Hemoglobin (Bld) [Mass/Vol] 12.5 g/dL Normal ScreenOnly [facility] Comment on above: Performed By: #### A BG ####[address] [place], [place] Oxygen (Bld) [Partial pressure] 73.9 mm[Hg] Low 80.0-100.0 [facility] Comment on above: Performed By: #### A BG ####[address] [place], [place] Oxygen saturation in Blood 93.9 % Low 95.0-100.0 [facility] Comment on above: Performed By: #### A BG ####[address] [place], [place] pCO2 46.9 mm[Hg] High 35.0-45.0 [facility] Comment on above: Performed By: #### A BG ####[address] [place], [place] pH 7.492 High 7.350-7.450 [facility] Comment on above: Performed By: #### A BG ####[address] Std Base Excess 10.4 mmol/L High -3.0-3.0 [facility] Comment on above: Performed By: #### A BG ####[address] FIO2 No data Normal [facility] Comment on above: Performed By: #### A BG ####[address] Basic Metabolic Panelon 07- Anion gap [Moles/Vol] 6 mmol/L Normal 3-13 [facility] Comment on above: Performed By: #### L FT3, MG3, FERR3, LDH3, PHOS3, HEMDF, BMP3M, ICA, CRP2, DDI2 ####[address] [place], [place] Calcium [Mass/Vol] 8.9 mg/dL Normal 8.4-10.4 [facility] Comment on above: Performed By: #### L FT3, MG3, FERR3, LDH3, PHOS3, HEMDF, BMP3M, ICA, CRP2, DDI2 ####[id number] [place], [place] CO2 [Moles/Vol] 32 mmol/L High 22-30 [facility] Comment on above: Performed By: #### L FT3, MG3, FERR3, LDH3, PHOS3, HEMDF, BMP3M, ICA, CRP2, DDI2 ####[address] [place], [place] Glucose [Mass/Vol] 131 mg/dL High 70-100 [facility] Comment on above: Performed By: #### L FT3, MG3, FERR3, LDH3, PHOS3, HEMDF, BMP3M, ICA, CRP2, DDI2 ####[address] [place], [place] Urea nitrogen [Mass/Vol] 56 mg/dL High 7-20 [facility] Comment on above: Performed By: #### L FT3, MG3, FERR3, LDH3, PHOS3, HEMDF, BMP3M, ICA, CRP2, DDI2 ####[id number] [place], [place] Creatinine [Mass/Vol] 0.72 mg/dL Normal 0.52-1.25 [facility] Comment on above: Performed By: #### L FT3, MG3, FERR3, LDH3, PHOS3, HEMDF, BMP3M, ICA, CRP2, DDI2 ####[id number] [place], [place] eGFR OTHER > 90.0 Normal >60 [facility] Comment on above: Result Comment: KDIG O guidelines provide the following GFR categories:Stage GFR(ml/min/1.73 m2) TermsG1 >=90 Normal or highG2 60-89 Mildly decreased*G3a 45-59 Mildly to moderately [id number] 30-44 Moderately to severely decreasedG4 15-29 Severely [...] LDH3, PHOS3, HEMDF, BMP3M, ICA, CRP2, DDI2 ####[address] GFR/1.73 sq M.predicted among blacks MDRD (S/P/Bld) [Vol rate/Area] mL/min/{1.73_m2} Normal >60 [facility] Comment on above: Performed By: #### L FT3, MG3, FERR3, LDH3, PHOS3, HEMDF, BMP3M, ICA, CRP2, DDI2 ####[address] [place], [place] Potassium [Moles/Vol] 4.5 mmol/L Normal 3.5-5.1 [facility] Comment on above: Performed By: #### L FT3, MG3, FERR3, LDH3, PHOS3, HEMDF, BMP3M, ICA, CRP2, DDI2 ####[address] Sodium [Moles/Vol] 149 mmol/L High 135-145 [facility] Comment on above: Performed By: #### L FT3, MG3, FERR3, LDH3, PHOS3, HEMDF, BMP3M, ICA, CRP2, DDI2 ####[address] Chloride [Moles/Vol] 111 mmol/L High 98-107 [facility] Comment on above: Performed By: #### L FT3, MG3, FERR3, LDH3, PHOS3, HEMDF, BMP3M, ICA, CRP2, DDI2 ####[address] [place] [address] C-Reactive Proteinon 021 CRP [Mass/Vol] 5.9 mg/L Normal 0.0-6.0 [facility] Comment on above: Result Comment: . Performed By: #### L FT3, MG3, FERR3, LDH3, PHOS3, HEMDF, BMP3M, ICA, CRP2, DDI2 ####[address] [place] [address] CR Chest Portableon 06-13-20 CR Chest Portable Normal [facility] Calcium,Ionizedon 06-13-2021 Ionized Ca,Measured 4.10 mg/dL Low 4.30-5.20 [facility] Comment on above: Performed By: #### L FT3, MG3, FERR3, LDH3, PHOS3, HEMDF, BMP3M, ICA, CRP2, DDI2 ####[address] [id number] pH, Ionized Calcium 7.52 High 7.31-7.46 [facility] Comment on above: Performed By: #### L FT3, MG3, FERR3, LDH3, PHOS3, HEMDF, BMP3M, ICA, CRP2, DDI2 ####[address] [id number] D-Dimer, Innovanceon 021 D-Dimer, Innovance 18.71 mg/L High <0.19-0.50 [facility] Comment on above: Result Comment: Inno carrington D-Dimer values of <0.50 mg/L FEU can be used incombination with a pre-test probability model (e.g. Well's)to exclude pulmonary embolism (PE) disease, as well as jodi in the diagnosis of deep vein thrombosis (DVT). Performed By: #### L FT3, MG3, FERR3, LDH3, PHOS3, HEMDF, BMP3M, ICA, CRP2, DDI2 ####[address] [place] Ferritinon 06-13-2021 Ferritin [Mass/Vol] 42 ng/mL Normal 8-252 [facility] Comment on above: Performed By: #### L FT3, MG3, FERR3, LDH3, PHOS3, HEMDF, BMP3M, ICA, CRP2, DDI2 ####[address] . [place], [place] Glucose,Bedsideon 06-13-2021 Glucose [Mass/Vol] 174 mg/dL High 70-100 [facility] Comment on above: Result Comment: Test performed by glucose meter. Results may be 10%-15% lowerthan serum/plasma values. (CLIA ID [id number]) Performed By: #### B GLU ####[address] Glucose [Mass/Vol] 159 mg/dL High 70-100 [facility] Comment on above: Result Comment: Test performed by glucose meter. Results may be 10%-15% lowerthan serum/plasma values. (CLIA ID [id number]) Performed By: #### B GLU ####[address] [place], [place] Glucose [Mass/Vol] 129 mg/dL High 70-100 [facility] Comment on above: Result Comment: Test performed by glucose meter. Results may be 10%-15% lowerthan serum/plasma values. (CLIA ID [id number]) Performed By: #### B GLU ####[address] [place], [place] Hemogram w/ Autodiffon 06-13 Abs Baso Cnt 0.1 10*3/uL Normal 0.0-0.2 [facility] Comment on above: Performed By: #### L FT3, MG3, FERR3, LDH3, PHOS3, HEMDF, BMP3M, ICA, CRP2, DDI2 ####[address] [place], [place] Abs Neutrophile Cnt 9.9 10*3/uL High 1.8-7.0 [facility] Comment on above: Performed By: #### L FT3, MG3, FERR3, LDH3, PHOS3, HEMDF, BMP3M, ICA, CRP2, DDI2 ####[address] [address] Basophils/100 WBC (Bld) 1.2 % Normal 0.0-2.0 [facility] Comment on above: Performed By: #### L FT3, MG3, FERR3, LDH3, PHOS3, HEMDF, BMP3M, ICA, CRP2, DDI2 ####[address] [address] Eosinophils (Bld) [#/Vol] 0.0 10*3/uL Normal 0.0-0.5 [facility] Comment on above: Performed By: #### L FT3, MG3, FERR3, LDH3, PHOS3, HEMDF, BMP3M, ICA, CRP2, DDI2 ####[address] Eosinophils/100 WBC (Bld) 0.1 % Low 1.0-6.0 [facility] Comment on above: Performed By: #### L FT3, MG3, FERR3, LDH3, PHOS3, HEMDF, BMP3M, ICA, CRP2, DDI2 ####[address] Erythrocyte distribution width (RBC) [Ratio] 21.1 % High 11.5-14.5 [facility] Comment on above: Performed By: #### L FT3, MG3, FERR3, LDH3, PHOS3, HEMDF, BMP3M, ICA, CRP2, DDI2 ####[address] [address] Granulocytes/100 WBC (Bld) 80.6 % High 40.0-80.0 [facility] Comment on above: Performed By: #### L FT3, MG3, FERR3, LDH3, PHOS3, HEMDF, BMP3M, ICA, CRP2, DDI2 ####[address] Hematocrit (Bld) [Volume fraction] 36.4 % Normal 35.0-47.0 [facility] Comment on above: Performed By: #### L FT3, MG3, FERR3, LDH3, PHOS3, HEMDF, BMP3M, ICA, CRP2, DDI2 ####[address] Hemoglobin (Bld) [Mass/Vol] 11.4 g/dL Low 11.7-16.0 [facility] Comment on above: Performed By: #### L FT3, MG3, FERR3, LDH3, PHOS3, HEMDF, BMP3M, ICA, CRP2, DDI2 ####[address] Lymphocytes (Bld) [#/Vol] 1.0 10*3/uL Normal 1.0-4.3 [facility] Comment on above: Performed By: #### L FT3, MG3, FERR3, LDH3, PHOS3, HEMDF, BMP3M, ICA, CRP2, DDI2 ####[address] Lymphocytes/100 WBC (Bld) 8.4 % Low 20.0-40.0 [facility] Comment on above: Performed By: #### L FT3, MG3, FERR3, LDH3, PHOS3, HEMDF, BMP3M, ICA, CRP2, DDI2 ####[address] MCH (RBC) [Entitic mass] 22.4 pg Low 26.0-34.0 [facility] Comment on above: Performed By: #### L FT3, MG3, FERR3, LDH3, PHOS3, HEMDF, BMP3M, ICA, CRP2, DDI2 ####[address] MCHC 31.4 % Low 32.0-36.0 [facility] Comment on above: Performed By: #### L FT3, MG3, FERR3, LDH3, PHOS3, HEMDF, BMP3M, ICA, CRP2, DDI2 ####[address] [place], [place] MCV (RBC) [Entitic vol] 71.4 fL Low 79.0-98.0 [facility] Comment on above: Performed By: #### L FT3, MG3, FERR3, LDH3, PHOS3, HEMDF, BMP3M, ICA, CRP2, DDI2 ####[address] Monocytes (Bld) [#/Vol] 1.2 10*3/uL High 0.0-0.8 [facility] Comment on above: Performed By: #### L FT3, MG3, FERR3, LDH3, PHOS3, HEMDF, BMP3M, ICA, CRP2, DDI2 ####[address] Monocytes/100 WBC (Bld) 9.7 % Normal 2.0-10.0 [facility] Comment on above: Performed By: #### L FT3, MG3, FERR3, LDH3, PHOS3, HEMDF, BMP3M, ICA, CRP2, DDI2 ####[address] Platelet mean volume (Bld) [Entitic vol] 8.3 fL Normal 7.4-10.4 [facility] Comment on above: Performed By: #### L FT3, MG3, FERR3, LDH3, PHOS3, HEMDF, BMP3M, ICA, CRP2, DDI2 ####[address] Platelets (Bld) [#/Vol] 243 10*3/uL Normal 140-440 [facility] Comment on above: Performed By: #### L FT3, MG3, FERR3, LDH3, PHOS3, HEMDF, BMP3M, ICA, CRP2, DDI2 ####[address] RBC (Bld) [#/Vol] 5.10 10*6/uL Normal 3.80-5.20 [facility] Comment on above: Performed By: #### L FT3, MG3, FERR3, LDH3, PHOS3, HEMDF, BMP3M, ICA, CRP2, DDI2 ####[address] [place], [place] WBC (Bld) [#/Vol] 12.2 10*3/uL High 3.6-10.7 [facility] Comment on above: Performed By: #### L FT3, MG3, FERR3, LDH3, PHOS3, HEMDF, BMP3M, ICA, CRP2, DDI2 ####[address] [place], [place] Hepatic Functionon 1 ALP [Catalytic activity/Vol] 82 U/L Normal 38-126 [facility] Comment on above: Performed By: #### L FT3, MG3, FERR3, LDH3, PHOS3, HEMDF, BMP3M, ICA, CRP2, DDI2 ####[address] [place], [place] ALT [Catalytic activity/Vol] 62 U/L High 0-34 [facility] Comment on above: Result Comment: The ALT test is performed by an updated assay method.Please note that the reference intervals have beenchanged and are now sex specific. Performed By: #### L FT3, MG3, FERR3, LDH3, PHOS3, HEMDF, BMP3M, ICA, CRP2, DDI2 ####[address] [place], [place] AST [Catalytic activity/Vol] 36 U/L Normal 15-46 [facility] Comment on above: Performed By: #### L FT3, MG3, FERR3, LDH3, PHOS3, HEMDF, BMP3M, ICA, CRP2, DDI2 ####[address] [place], [place] Bilirubin [Mass/Vol] 0.5 mg/dL Normal 0.2-1.3 [facility] Comment on above: Performed By: #### L FT3, MG3, FERR3, LDH3, PHOS3, HEMDF, BMP3M, ICA, CRP2, DDI2 ####[address] Protein [Mass/Vol] 6.5 g/dL Normal 6.3-8.2 [facility] Comment on above: Performed By: #### L FT3, MG3, FERR3, LDH3, PHOS3, HEMDF, BMP3M, ICA, CRP2, DDI2 ####[address] Bilirubin.indirect [Mass/Vol] 0.0 mg/dL Normal 0.0-0.3 [facility] Comment on above: Performed By: #### L FT3, MG3, FERR3, LDH3, PHOS3, HEMDF, BMP3M, ICA, CRP2, DDI2 ####[address] Albumin [Mass/Vol] 3.3 g/dL Low 3.5-5.0 [facility] Comment on above: Performed By: #### L FT3, MG3, FERR3, LDH3, PHOS3, HEMDF, BMP3M, ICA, CRP2, DDI2 ####[address] LDHon 06-13-2021 LDH 272 U/L High 120-246 [facility] Comment on above: Performed By: #### L FT3, MG3, FERR3, LDH3, PHOS3, HEMDF, BMP3M, ICA, CRP2, DDI2 ####[address] Magnesiumon 06-13-2021 Magnesium [Mass/Vol] 2.5 mg/dL High 1.6-2.3 [facility] Comment on above: Performed By: #### L FT3, MG3, FERR3, LDH3, PHOS3, HEMDF, BMP3M, ICA, CRP2, DDI2 ####[address] . [place] [address] PNEUMONIA PCR PANELon 2020 PNEUMONIA PCR PANEL Normal [facility] Comment on above: Performed By: #### B FPNE ####[address] [place] [address] Phosphoruson 06-13-2021 Phosphate [Mass/Vol] 4.4 mg/dL Normal 2.5-4.5 [facility] Comment on above: Performed By: #### L FT3, MG3, FERR3, LDH3, PHOS3, HEMDF, BMP3M, ICA, CRP2, DDI2 ####[address] [place], [place] Sodiumon 06-13-2021 Sodium [Moles/Vol] 148 mmol/L High 135-145 [facility] Comment on above: Performed By: #### N A3 ####[address] [place], [place] Sodium [Moles/Vol] 148 mmol/L High 135-145 [facility] Comment on above: Performed By: #### N A3 ####[address] [place], [place] Sodium [Moles/Vol] 150 mmol/L High 135-145 [facility] Comment on above: Performed By: #### N A3 ####[address] [place] [address] Arterial Blood Gaseson 06-12 CO2 [Moles/Vol] 34.1 mmol/L High 23.0-27.0 [facility] Comment on above: Performed By: #### A BG ####[address] [place], [place] HCO3 (Bld) [Moles/Vol] 32.6 mmol/L High 21.0-25.0 [facility] Comment on above: Performed By: #### A BG ####[address] Hemoglobin (Bld) [Mass/Vol] 12.3 g/dL Normal ScreenOnly [facility] Comment on above: Performed By: #### A BG ####[address] [place], [place] Oxygen (Bld) [Partial pressure] 60.5 mm[Hg] Low 80.0-100.0 [facility] Comment on above: Performed By: #### A BG ####[address] [place], [place] Oxygen saturation in Blood 90.5 % Low 95.0-100.0 [facility] Comment on above: Performed By: #### A BG ####[address] [place], [place] pCO2 46.2 mm[Hg] High 35.0-45.0 [facility] Comment on above: Performed By: #### A BG ####[address] pH 7.467 High 7.350-7.450 [facility] Comment on above: Performed By: #### A BG ####[address] Std Base Excess 7.9 mmol/L High -3.0-3.0 [facility] Comment on above: Performed By: #### A BG ####[address] FIO2 No data Normal [facility] Comment on above: Performed By: #### A BG ####[address] [place], [place] CO2 [Moles/Vol] 36.1 mmol/L High 23.0-27.0 [facility] Comment on above: Performed By: #### A BG ####[address] HCO3 (Bld) [Moles/Vol] 34.6 mmol/L High 21.0-25.0 [facility] Comment on above: Performed By: #### A BG ####[address] Hemoglobin (Bld) [Mass/Vol] 12.2 g/dL Normal ScreenOnly [facility] Comment on above: Performed By: #### A BG ####[address] [place], [place] Oxygen (Bld) [Partial pressure] 82.8 mm[Hg] Normal 80.0-100.0 [facility] Comment on above: Performed By: #### A BG ####[address] Oxygen saturation in Blood 95.3 % Normal 95.0-100.0 [facility] Comment on above: Performed By: #### A BG ####[address] [place], [place] pCO2 48.7 mm[Hg] High 35.0-45.0 [facility] Comment on above: Performed By: #### A BG ####[address] [place], [place] pH 7.469 High 7.350-7.450 [facility] Comment on above: Performed By: #### A BG ####[address] Std Base Excess 9.5 mmol/L High -3.0-3.0 [facility] Comment on above: Performed By: #### A BG ####[address] [place], [place] FIO2 40% Normal [facility] Comment on above: Performed By: #### A BG ####[address] Basic Metabolic Panelon 05-30 Calcium [Mass/Vol] 9.0 mg/dL Normal 8.4-10.4 [facility] Comment on above: Performed By: #### B MP3M, MG3, LFT3, HEMDF, PHOS3, DDI2, ICA, MDIFF, CRP2, FERR3, LDH3 ####[address] [place], [place] Glucose [Mass/Vol] 139 mg/dL High 70-100 [facility] Comment on above: Performed By: #### B MP3M, MG3, LFT3, HEMDF, PHOS3, DDI2, ICA, MDIFF, CRP2, FERR3, LDH3 ####[address] [place], [place] Urea nitrogen [Mass/Vol] 59 mg/dL High 7-20 [facility] Comment on above: Performed By: #### B MP3M, MG3, LFT3, HEMDF, PHOS3, DDI2, ICA, MDIFF, CRP2, FERR3, LDH3 ####[address] [place], [place] Anion gap [Moles/Vol] 4 mmol/L Normal 3-13 [facility] Comment on above: Performed By: #### B MP3M, MG3, LFT3, HEMDF, PHOS3, DDI2, ICA, MDIFF, CRP2, FERR3, LDH3 ####[address] CO2 [Moles/Vol] 34 mmol/L High 22-30 [facility] Comment on above: Performed By: #### B MP3M, MG3, LFT3, HEMDF, PHOS3, DDI2, ICA, MDIFF, CRP2, FERR3, LDH3 ####[address] Creatinine [Mass/Vol] 0.82 mg/dL Normal 0.52-1.25 [facility] Comment on above: Performed By: #### B MP3M, MG3, LFT3, HEMDF, PHOS3, DDI2, ICA, MDIFF, CRP2, FERR3, LDH3 ####[address] GFR/1.73 sq M.predicted among blacks MDRD (S/P/Bld) [Vol rate/Area] mL/min/{1.73_m2} Normal >60 [facility] Comment on above: Performed By: #### B MP3M, MG3, LFT3, HEMDF, PHOS3, DDI2, ICA, MDIFF, CRP2, FERR3, LDH3 ####[address] [place], [place] GFR/1.73 sq M.predicted among non-blacks MDRD (S/P/Bld) [Vol rate/Area] 81.5 mL/min/{1.73_m2} Normal >60 [facility] Comment on above: Result Comment: KDIG O guidelines provide the following GFR categories:Stage GFR(ml/min/1.73 m2) TermsG1 >=90 Normal or highG2 60-89 Mildly decreased*G3a 45-59 Mildly to moderately [id number] 30-44 Moderately to severely decreasedG4 15-29 Severely [...] PHOS3, DDI2, ICA, MDIFF, CRP2, FERR3, LDH3 ####[address] [place], [place] Potassium [Moles/Vol] 4.4 mmol/L Normal 3.5-5.1 [facility] Comment on above: Performed By: #### B MP3M, MG3, LFT3, HEMDF, PHOS3, DDI2, ICA, MDIFF, CRP2, FERR3, LDH3 ####[address] [place], [place] Chloride [Moles/Vol] 111 mmol/L High 98-107 [facility] Comment on above: Performed By: #### B MP3M, MG3, LFT3, HEMDF, PHOS3, DDI2, ICA, MDIFF, CRP2, FERR3, LDH3 ####[address] [place], [place] Sodium [Moles/Vol] 149 mmol/L High 135-145 [facility] Comment on above: Performed By: #### B MP3M, MG3, LFT3, HEMDF, PHOS3, DDI2, ICA, MDIFF, CRP2, FERR3, LDH3 ####[address] [place], [place] C-Reactive Proteinon 021 CRP [Mass/Vol] 6.1 mg/L High 0.0-6.0 [facility] Comment on above: Result Comment: . Performed By: #### B MP3M, MG3, LFT3, HEMDF, PHOS3, DDI2, ICA, MDIFF, CRP2, FERR3, LDH3 ####[address] CR Chest Portableon 06-12-20 21 CR Chest Portable Normal [facility] Calcium,Ionizedon 06-12-2021 Ionized Ca,Measured 4.70 mg/dL Normal 4.30-5.20 [facility] Comment on above: Performed By: #### B MP3M, MG3, LFT3, HEMDF, PHOS3, DDI2, ICA, MDIFF, CRP2, FERR3, LDH3 ####[address] pH, Ionized Calcium 7.46 Normal 7.31-7.46 [facility] Comment on above: Performed By: #### B MP3M, MG3, LFT3, HEMDF, PHOS3, DDI2, ICA, MDIFF, CRP2, FERR3, LDH3 ####[address] D-Dimer, Innovanceon 021 D-Dimer, [employer]ance 23.25 mg/L High <0.19-0.50 [facility] Comment on above: Result Comment: Inno carrington D-Dimer values of <0.50 mg/L FEU can be used incombination with a pre-test probability model (e.g. Well's)to exclude pulmonary embolism (PE) disease, as well as jodi in the diagnosis of deep vein thrombosis (DVT). Performed By: #### B MP3M, MG3, LFT3, HEMDF, PHOS3, DDI2, ICA, MDIFF, CRP2, FERR3, LDH3 ####[facility] [employer] [id number] [place] [address] Ferritinon 06-12-2021 Ferritin [Mass/Vol] 42 ng/mL Normal 8-252 [facility] Comment on above: Performed By: #### B MP3M, MG3, LFT3, HEMDF, PHOS3, DDI2, ICA, MDIFF, CRP2, FERR3, LDH3 ####[facility] [employer] [id number] [place] [address] Glucose,Bedsideon 06-12-2021 Glucose [Mass/Vol] 172 mg/dL High 70-100 [facility] Comment on above: Result Comment: Test performed by glucose meter. Results may be 10%-15% lowerthan serum/plasma values. (CLIA ID [id number]) Performed By: #### B GLU ####[facility] [employer] [id number] [place] [address] Glucose [Mass/Vol] 169 mg/dL High 70-100 [facility] Comment on above: Result Comment: Test performed by glucose meter. Results may be 10%-15% lowerthan serum/plasma values. (CLIA ID [id number]) Performed By: #### B GLU ####[facility] [employer] [id number] [place] [address] Glucose [Mass/Vol] 178 mg/dL High 70-100 [facility] Comment on above: Result Comment: Test performed by glucose meter. Results may be 10%-15% lowerthan serum/plasma values. (CLIA ID [id number]) Performed By: #### B GLU ####[facility] [employer] [id number] [place] [address] Glucose [Mass/Vol] 121 mg/dL High 70-100 [facility] Comment on above: Result Comment: Test performed by glucose meter. Results may be 10%-15% lowerthan serum/plasma values. (CLIA ID [id number]) Performed By: #### B GLU ####[address] Glucose [Mass/Vol] 135 mg/dL High 70-100 [facility] Comment on above: Result Comment: Test performed by glucose meter. Results may be 10%-15% lowerthan serum/plasma values. (CLIA ID [id number]) Performed By: #### B GLU ####[address] Hemogram w/ Autodiffon 06-12 Erythrocyte distribution width (RBC) [Ratio] 20.8 % High 11.5-14.5 [facility] Comment on above: Performed By: #### B MP3M, MG3, LFT3, HEMDF, PHOS3, DDI2, ICA, MDIFF, CRP2, FERR3, LDH3 ####[address] Hematocrit (Bld) [Volume fraction] 35.9 % Normal 35.0-47.0 [facility] Comment on above: Performed By: #### B MP3M, MG3, LFT3, HEMDF, PHOS3, DDI2, ICA, MDIFF, CRP2, FERR3, LDH3 ####[address] [place], [place] Hemoglobin (Bld) [Mass/Vol] 11.3 g/dL Low 11.7-16.0 [facility] Comment on above: Performed By: #### B MP3M, MG3, LFT3, HEMDF, PHOS3, DDI2, ICA, MDIFF, CRP2, FERR3, LDH3 ####[address] [place], [place] MCH (RBC) [Entitic mass] 22.4 pg Low 26.0-34.0 [facility] Comment on above: Performed By: #### B MP3M, MG3, LFT3, HEMDF, PHOS3, DDI2, ICA, MDIFF, CRP2, FERR3, LDH3 ####[address] MCHC 31.3 % Low 32.0-36.0 [facility] Comment on above: Performed By: #### B MP3M, MG3, LFT3, HEMDF, PHOS3, DDI2, ICA, MDIFF, CRP2, FERR3, LDH3 ####[address] MCV (RBC) [Entitic vol] 71.5 fL Low 79.0-98.0 [facility] Comment on above: Performed By: #### B MP3M, MG3, LFT3, HEMDF, PHOS3, DDI2, ICA, MDIFF, CRP2, FERR3, LDH3 ####[address] Platelet mean volume (Bld) [Entitic vol] 8.6 fL Normal 7.4-10.4 [facility] Comment on above: Performed By: #### B MP3M, MG3, LFT3, HEMDF, PHOS3, DDI2, ICA, MDIFF, CRP2, FERR3, LDH3 ####[address] [place], [place] Platelets (Bld) [#/Vol] 266 10*3/uL Normal 140-440 [facility] Comment on above: Performed By: #### B MP3M, MG3, LFT3, HEMDF, PHOS3, DDI2, ICA, MDIFF, CRP2, FERR3, LDH3 ####[address] RBC (Bld) [#/Vol] 5.03 10*6/uL Normal 3.80-5.20 [facility] Comment on above: Performed By: #### B MP3M, MG3, LFT3, HEMDF, PHOS3, DDI2, ICA, MDIFF, CRP2, FERR3, LDH3 ####[address] WBC (Bld) [#/Vol] 11.1 10*3/uL High 3.6-10.7 [facility] Comment on above: Performed By: #### B MP3M, MG3, LFT3, HEMDF, PHOS3, DDI2, ICA, MDIFF, CRP2, FERR3, LDH3 ####[address] [place], [place] Hepatic Functionon 1 ALP [Catalytic activity/Vol] 82 U/L Normal 38-126 [facility] Comment on above: Performed By: #### B MP3M, MG3, LFT3, HEMDF, PHOS3, DDI2, ICA, MDIFF, CRP2, FERR3, LDH3 ####[address] [place], [place] ALT [Catalytic activity/Vol] 61 U/L High 0-34 [facility] Comment on above: Result Comment: The ALT test is performed by an updated assay method.Please note that the reference intervals have beenchanged and are now sex specific. Performed By: #### B MP3M, MG3, LFT3, HEMDF, PHOS3, DDI2, ICA, MDIFF, CRP2, FERR3, LDH3 ####[address] [place], [place] AST [Catalytic activity/Vol] 42 U/L Normal 15-46 [facility] Comment on above: Performed By: #### B MP3M, MG3, LFT3, HEMDF, PHOS3, DDI2, ICA, MDIFF, CRP2, FERR3, LDH3 ####[address] Protein [Mass/Vol] 6.6 g/dL Normal 6.3-8.2 [facility] Comment on above: Performed By: #### B MP3M, MG3, LFT3, HEMDF, PHOS3, DDI2, ICA, MDIFF, CRP2, FERR3, LDH3 ####[address] [place], [place] Bilirubin [Mass/Vol] 0.5 mg/dL Normal 0.2-1.3 [facility] Comment on above: Performed By: #### B MP3M, MG3, LFT3, HEMDF, PHOS3, DDI2, ICA, MDIFF, CRP2, FERR3, LDH3 ####[address] Bilirubin.indirect [Mass/Vol] 0.0 mg/dL Normal 0.0-0.3 [facility] Comment on above: Performed By: #### B MP3M, MG3, LFT3, HEMDF, PHOS3, DDI2, ICA, MDIFF, CRP2, FERR3, LDH3 ####[address] Albumin [Mass/Vol] 3.4 g/dL Low 3.5-5.0 [facility] Comment on above: Performed By: #### B MP3M, MG3, LFT3, HEMDF, PHOS3, DDI2, ICA, MDIFF, CRP2, FERR3, LDH3 ####[address] [id number] LDHon 06-12-2021 LDH 269 U/L High 120-246 [facility] Comment on above: Performed By: #### B MP3M, MG3, LFT3, HEMDF, PHOS3, DDI2, ICA, MDIFF, CRP2, FERR3, LDH3 ####[address] Magnesiumon 06-12-2021 Magnesium [Mass/Vol] 2.4 mg/dL High 1.6-2.3 [facility] Comment on above: Performed By: #### B MP3M, MG3, LFT3, HEMDF, PHOS3, DDI2, ICA, MDIFF, CRP2, FERR3, LDH3 ####[address] Manual Diffon 06-12-2021 Abs Eosin Cnt 0.1 10*3/uL Normal 0.0-0.5 [facility] Comment on above: Performed By: #### B MP3M, MG3, LFT3, HEMDF, PHOS3, DDI2, ICA, MDIFF, CRP2, FERR3, LDH3 ####[address] Abs Lymph Cnt 0.8 10*3/uL Low 1.1-4.5 [facility] Comment on above: Performed By: #### B MP3M, MG3, LFT3, HEMDF, PHOS3, DDI2, ICA, MDIFF, CRP2, FERR3, LDH3 ####[address] Abs Monocyte Cnt 0.8 10*3/uL Normal 0.2-1.1 [facility] Comment on above: Performed By: #### B MP3M, MG3, LFT3, HEMDF, PHOS3, DDI2, ICA, MDIFF, CRP2, FERR3, LDH3 ####[address] Abs Neutrophile Cnt 9.4 10*3/uL High 2.2-8.2 [facility] Comment on above: Performed By: #### B MP3M, MG3, LFT3, HEMDF, PHOS3, DDI2, ICA, MDIFF, CRP2, FERR3, LDH3 ####[address] Anisocytosis Slight Normal [facility] Comment on above: Performed By: #### B MP3M, MG3, LFT3, HEMDF, PHOS3, DDI2, ICA, MDIFF, CRP2, FERR3, LDH3 ####[address] Elliptocytes Few Normal [facility] Comment on above: Performed By: #### B MP3M, MG3, LFT3, HEMDF, PHOS3, DDI2, ICA, MDIFF, CRP2, FERR3, LDH3 ####[address] Eosinophils 1 % Normal 1-6 [facility] Comment on above: Performed By: #### B MP3M, MG3, LFT3, HEMDF, PHOS3, DDI2, ICA, MDIFF, CRP2, FERR3, LDH3 ####[address] Lymphocytes 7 % Low 20-40 [facility] Comment on above: Performed By: #### B MP3M, MG3, LFT3, HEMDF, PHOS3, DDI2, ICA, MDIFF, CRP2, FERR3, LDH3 ####[address] Microcytosis Slight Normal [facility] Comment on above: Performed By: #### B MP3M, MG3, LFT3, HEMDF, PHOS3, DDI2, ICA, MDIFF, CRP2, FERR3, LDH3 ####[address] Monocytes 7 % Normal 2-10 [facility] Comment on above: Performed By: #### B MP3M, MG3, LFT3, HEMDF, PHOS3, DDI2, ICA, MDIFF, CRP2, FERR3, LDH3 ####[address] Ovalocytes Slight Normal [facility] Comment on above: Performed By: #### B MP3M, MG3, LFT3, HEMDF, PHOS3, DDI2, ICA, MDIFF, CRP2, FERR3, LDH3 ####[address] Poikilocytosis Slight Normal [facility] Comment on above: Performed By: #### B MP3M, MG3, LFT3, HEMDF, PHOS3, DDI2, ICA, MDIFF, CRP2, FERR3, LDH3 ####[address] RBC Morphology ABNORMAL Normal [facility] Comment on above: Performed By: #### B MP3M, MG3, LFT3, HEMDF, PHOS3, DDI2, ICA, MDIFF, CRP2, FERR3, LDH3 ####[address] Seg Neutrophils 85 % High 40-80 [facility] Comment on above: Performed By: #### B MP3M, MG3, LFT3, HEMDF, PHOS3, DDI2, ICA, MDIFF, CRP2, FERR3, LDH3 ####[address] Abs Baso Cnt 0.0 10*3/uL Normal 0.0-0.2 [facility] Comment on above: Performed By: #### B MP3M, MG3, LFT3, HEMDF, PHOS3, DDI2, ICA, MDIFF, CRP2, FERR3, LDH3 ####[address] Bands 0 % Normal 0-3 [facility] Comment on above: Performed By: #### B MP3M, MG3, LFT3, HEMDF, PHOS3, DDI2, ICA, MDIFF, CRP2, FERR3, LDH3 ####[address] Basophils 0 % Normal 0-2 [facility] Comment on above: Performed By: #### B MP3M, MG3, LFT3, HEMDF, PHOS3, DDI2, ICA, MDIFF, CRP2, FERR3, LDH3 ####[address] Cells counted 100 Normal [facility] Comment on above: Performed By: #### B MP3M, MG3, LFT3, HEMDF, PHOS3, DDI2, ICA, MDIFF, CRP2, FERR3, LDH3 ####[address] Phosphoruson 06-12-2021 Phosphate [Mass/Vol] 4.3 mg/dL Normal 2.5-4.5 [facility] Comment on above: Performed By: #### B MP3M, MG3, LFT3, HEMDF, PHOS3, DDI2, ICA, MDIFF, CRP2, FERR3, LDH3 ####[id number] [place] [address] STAIN GRAMon 06-12-2021 STAIN GRAM STAIN GRAM --> Statu s: F Many polymorphonuclear cells/lpf. Rare epithelial cells/lpf. Few gram positive cocci in pairs and chains. Few yeast. Rare epithelial cells/lpf. Few gram positive cocci in pairs and chains. Few yeast. Normal [facility] Comment on above: Performed By: #### C S/RE, S/GRM ####[id number] [place] [address] Sodiumon 06-12-2021 Sodium [Moles/Vol] 146 mmol/L High 135-145 [facility] [facility] Comment on above: Performed By: #### N A3 ####[address] Sodium [Moles/Vol] 146 mmol/L High 135-145 [facility] Comment on above: Performed By: #### N A3 ####[address] Sodium [Moles/Vol] 148 mmol/L High 135-145 [facility] Comment on above: Performed By: #### N A3 ####[address] Arterial Blood Gaseson 06-11 CO2 [Moles/Vol] 34.0 mmol/L High 23.0-27.0 [facility] Comment on above: Performed By: #### A BG ####[address] HCO3 (Bld) [Moles/Vol] 32.5 mmol/L High 21.0-25.0 [facility] Comment on above: Performed By: #### A BG ####[address] Hemoglobin (Bld) [Mass/Vol] 11.6 g/dL Normal ScreenOnly [facility] Comment on above: Performed By: #### A BG ####[address] Oxygen (Bld) [Partial pressure] 72.4 mm[Hg] Low 80.0-100.0 [facility] Comment on above: Performed By: #### A BG ####[address] [place], [place] Oxygen saturation in Blood 93.8 % Low 95.0-100.0 [facility] Comment on above: Performed By: #### A BG ####[address] [place], [place] pCO2 48.1 mm[Hg] High 35.0-45.0 [facility] Comment on above: Performed By: #### A BG ####[address] pH 7.448 Normal 7.350-7.450 [facility] Comment on above: Performed By: #### A BG ####[address] Std Base Excess 7.5 mmol/L High -3.0-3.0 [facility] Comment on above: Performed By: #### A BG ####[address] FIO2 .40 Normal [facility] Comment on above: Performed By: #### A BG ####[address] CO2 [Moles/Vol] 33.8 mmol/L High 23.0-27.0 [facility] Comment on above: Performed By: #### A BG ####[address] HCO3 (Bld) [Moles/Vol] 32.4 mmol/L High 21.0-25.0 [facility] Comment on above: Performed By: #### A BG ####[address] Hemoglobin (Bld) [Mass/Vol] 11.3 g/dL Normal ScreenOnly [facility] Comment on above: Performed By: #### A BG ####[address] [place], [place] Oxygen (Bld) [Partial pressure] 78.2 mm[Hg] Low 80.0-100.0 [facility] Comment on above: Performed By: #### A BG ####[address] [place], [place] Oxygen saturation in Blood 95.3 % Normal 95.0-100.0 [facility] Comment on above: Performed By: #### A BG ####[address] [place], [place] pCO2 46.2 mm[Hg] High 35.0-45.0 [facility] Comment on above: Performed By: #### A BG ####[address] pH 7.464 High 7.350-7.450 [facility] Comment on above: Performed By: #### A BG ####[address] Std Base Excess 7.7 mmol/L High -3.0-3.0 [facility] Comment on above: Performed By: #### A BG ####[address] FIO2 40% Normal [facility] Comment on above: Performed By: #### A BG ####[address] Basic Metabolic Panelon 07 Calcium [Mass/Vol] 8.8 mg/dL Normal 8.4-10.4 [facility] Comment on above: Performed By: #### L FT3, FERR3, DDI2, PHOS3, MG3, ICA, CRP2, BMP3M, LDH3, HEMDF ####[address] Anion gap [Moles/Vol] 6 mmol/L Normal 3-13 [facility] Comment on above: Performed By: #### L FT3, FERR3, DDI2, PHOS3, MG3, ICA, CRP2, BMP3M, LDH3, HEMDF ####[address] CO2 [Moles/Vol] 32 mmol/L High 22-30 [facility] Comment on above: Performed By: #### L FT3, FERR3, DDI2, PHOS3, MG3, ICA, CRP2, BMP3M, LDH3, HEMDF ####[address] Glucose [Mass/Vol] 133 mg/dL High 70-100 [facility] Comment on above: Performed By: #### L FT3, FERR3, DDI2, PHOS3, MG3, ICA, CRP2, BMP3M, LDH3, HEMDF ####[address] Urea nitrogen [Mass/Vol] 66 mg/dL High 7-20 [facility] Comment on above: Performed By: #### L FT3, FERR3, DDI2, PHOS3, MG3, ICA, CRP2, BMP3M, LDH3, HEMDF ####[address] Creatinine [Mass/Vol] 0.76 mg/dL Normal 0.52-1.25 [facility] Comment on above: Performed By: #### L FT3, FERR3, DDI2, PHOS3, MG3, ICA, CRP2, BMP3M, LDH3, HEMDF ####[address] GFR/1.73 sq M.predicted among blacks MDRD (S/P/Bld) [Vol rate/Area] mL/min/{1.73_m2} Normal >60 [facility] Comment on above: Performed By: #### L FT3, FERR3, DDI2, PHOS3, MG3, ICA, CRP2, BMP3M, LDH3, HEMDF ####[address] GFR/1.73 sq M.predicted among non-blacks MDRD (S/P/Bld) [Vol rate/Area] 89.4 mL/min/{1.73_m2} Normal >60 [facility] Comment on above: Result Comment: KDIG O guidelines provide the following GFR categories:Stage GFR(ml/min/1.73 m2) TermsG1 >=90 Normal or highG2 60-89 Mildly decreased*G3a 45-59 Mildly to moderately [id number] 30-44 Moderately to severely decreasedG4 15-29 Severely [...] PHOS3, MG3, ICA, CRP2, BMP3M, LDH3, HEMDF ####[address] [place], [place] Potassium [Moles/Vol] 4.6 mmol/L Normal 3.5-5.1 [facility] Comment on above: Performed By: #### L FT3, FERR3, DDI2, PHOS3, MG3, ICA, CRP2, BMP3M, LDH3, HEMDF ####[address] [place], [place] Chloride [Moles/Vol] 110 mmol/L High 98-107 [facility] Comment on above: Performed By: #### L FT3, FERR3, DDI2, PHOS3, MG3, ICA, CRP2, BMP3M, LDH3, HEMDF ####[address] [place], [place] Sodium [Moles/Vol] 147 mmol/L High 135-145 [facility] Comment on above: Performed By: #### L FT3, FERR3, DDI2, PHOS3, MG3, ICA, CRP2, BMP3M, LDH3, HEMDF ####[address] [place] [address] C-Reactive Proteinon 021 CRP [Mass/Vol] 6.0 mg/L Normal 0.0-6.0 [facility] Comment on above: Result Comment: . Performed By: #### L FT3, FERR3, DDI2, PHOS3, MG3, ICA, CRP2, BMP3M, LDH3, HEMDF ####[address] [place] [address] CR Chest Portableon 06-11-20 21 CR Chest Portable Normal [facility] Calcium,Ionizedon 06-11-2021 Ionized Ca,Measured 4.20 mg/dL Low 4.30-5.20 [facility] Comment on above: Performed By: #### L FT3, FERR3, DDI2, PHOS3, MG3, ICA, CRP2, BMP3M, LDH3, HEMDF ####[address] [address] pH, Ionized Calcium 7.51 High 7.31-7.46 [facility] Comment on above: Performed By: #### L FT3, FERR3, DDI2, PHOS3, MG3, ICA, CRP2, BMP3M, LDH3, HEMDF ####[address] [address] D-Dimer, Innovanceon 021 D-Dimer, Innovance 18.90 mg/L High <0.19-0.50 [facility] Comment on above: Result Comment: Inno carrington D-Dimer values of <0.50 mg/L FEU can be used incombination with a pre-test probability model (e.g. Well's)to exclude pulmonary embolism (PE) disease, as well as jodi in the diagnosis of deep vein thrombosis (DVT). Performed By: #### L FT3, FERR3, DDI2, PHOS3, MG3, ICA, CRP2, BMP3M, LDH3, HEMDF ####[address] [place] [address] Ferritinon 06-11-2021 Ferritin [Mass/Vol] 43 ng/mL Normal 8-252 [facility] Comment on above: Performed By: #### L FT3, FERR3, DDI2, PHOS3, MG3, ICA, CRP2, BMP3M, LDH3, HEMDF ####[address] [place] [address] Glucose,Bedsideon 06-11-2021 Glucose [Mass/Vol] 154 mg/dL High 70-100 [facility] Comment on above: Result Comment: Test performed by glucose meter. Results may be 10%-15% lowerthan serum/plasma values. (CLIA ID [id number]) Performed By: #### B GLU ####[address] [place] [address] Glucose [Mass/Vol] 184 mg/dL High 70-100 [facility] Comment on above: Result Comment: Test performed by glucose meter. Results may be 10%-15% lowerthan serum/plasma values. (CLIA ID [id number]) Performed By: #### B GLU ####[facility] [employer] [id number] [place] [address] Glucose [Mass/Vol] 125 mg/dL High 70-100 [facility] Comment on above: Result Comment: Test performed by glucose meter. Results may be 10%-15% lowerthan serum/plasma values. (CLIA ID [id number]) Performed By: #### B GLU ####[facility] [employer] [id number] [place] [address] Glucose [Mass/Vol] 138 mg/dL High 70-100 [facility] Comment on above: Result Comment: Test performed by glucose meter. Results may be 10%-15% lowerthan serum/plasma values. (CLIA ID [id number]) Performed By: #### B GLU ####[facility] [employer] [id number] [place] [address] Hemogram w/ Autodiffon 07-13 -2021 Abs Baso Cnt 0.1 10*3/uL Normal 0.0-0.2 [facility] Comment on above: Performed By: #### L FT3, FERR3, DDI2, PHOS3, MG3, ICA, CRP2, BMP3M, LDH3, HEMDF ####[address] Abs Neutrophile Cnt 10.1 10*3/uL High 1.8-7.0 [facility] Comment on above: Performed By: #### L FT3, FERR3, DDI2, PHOS3, MG3, ICA, CRP2, BMP3M, LDH3, HEMDF ####[address] Basophils/100 WBC (Bld) 0.9 % Normal 0.0-2.0 [facility] Comment on above: Performed By: #### L FT3, FERR3, DDI2, PHOS3, MG3, ICA, CRP2, BMP3M, LDH3, HEMDF ####[address] Eosinophils (Bld) [#/Vol] 0.0 10*3/uL Normal 0.0-0.5 [facility] Comment on above: Performed By: #### L FT3, FERR3, DDI2, PHOS3, MG3, ICA, CRP2, BMP3M, LDH3, HEMDF ####[address] Eosinophils/100 WBC (Bld) 0.3 % Low 1.0-6.0 [facility] Comment on above: Performed By: #### L FT3, FERR3, DDI2, PHOS3, MG3, ICA, CRP2, BMP3M, LDH3, HEMDF ####[address] Erythrocyte distribution width (RBC) [Ratio] 20.8 % High 11.5-14.5 [facility] Comment on above: Performed By: #### L FT3, FERR3, DDI2, PHOS3, MG3, ICA, CRP2, BMP3M, LDH3, HEMDF ####[address] Granulocytes/100 WBC (Bld) 83.4 % High 40.0-80.0 [facility] Comment on above: Performed By: #### L FT3, FERR3, DDI2, PHOS3, MG3, ICA, CRP2, BMP3M, LDH3, HEMDF ####[address] [place], [place] Hematocrit (Bld) [Volume fraction] 34.3 % Low 35.0-47.0 [facility] Comment on above: Performed By: #### L FT3, FERR3, DDI2, PHOS3, MG3, ICA, CRP2, BMP3M, LDH3, HEMDF ####[address] Hemoglobin (Bld) [Mass/Vol] 10.7 g/dL Low 11.7-16.0 [facility] Comment on above: Performed By: #### L FT3, FERR3, DDI2, PHOS3, MG3, ICA, CRP2, BMP3M, LDH3, HEMDF ####[address] Lymphocytes (Bld) [#/Vol] 0.6 10*3/uL Low 1.0-4.3 [facility] Comment on above: Performed By: #### L FT3, FERR3, DDI2, PHOS3, MG3, ICA, CRP2, BMP3M, LDH3, HEMDF ####[address] Lymphocytes/100 WBC (Bld) 5.2 % Low 20.0-40.0 [facility] Comment on above: Performed By: #### L FT3, FERR3, DDI2, PHOS3, MG3, ICA, CRP2, BMP3M, LDH3, HEMDF ####[address] MCH (RBC) [Entitic mass] 22.1 pg Low 26.0-34.0 [facility] Comment on above: Performed By: #### L FT3, FERR3, DDI2, PHOS3, MG3, ICA, CRP2, BMP3M, LDH3, HEMDF ####[address] [place], [place] MCHC 31.2 % Low 32.0-36.0 [facility] Comment on above: Performed By: #### L FT3, FERR3, DDI2, PHOS3, MG3, ICA, CRP2, BMP3M, LDH3, HEMDF ####[address] MCV (RBC) [Entitic vol] 70.9 fL Low 79.0-98.0 [facility] Comment on above: Performed By: #### L FT3, FERR3, DDI2, PHOS3, MG3, ICA, CRP2, BMP3M, LDH3, HEMDF ####[address] Monocytes (Bld) [#/Vol] 1.2 10*3/uL High 0.0-0.8 [facility] Comment on above: Performed By: #### L FT3, FERR3, DDI2, PHOS3, MG3, ICA, CRP2, BMP3M, LDH3, HEMDF ####[address] Monocytes/100 WBC (Bld) 10.2 % High 2.0-10.0 [facility] Comment on above: Performed By: #### L FT3, FERR3, DDI2, PHOS3, MG3, ICA, CRP2, BMP3M, LDH3, HEMDF ####[address] Platelet mean volume (Bld) [Entitic vol] 7.9 fL Normal 7.4-10.4 [facility] Comment on above: Performed By: #### L FT3, FERR3, DDI2, PHOS3, MG3, ICA, CRP2, BMP3M, LDH3, HEMDF ####[address] [place], [place] Platelets (Bld) [#/Vol] 265 10*3/uL Normal 140-440 [facility] Comment on above: Performed By: #### L FT3, FERR3, DDI2, PHOS3, MG3, ICA, CRP2, BMP3M, LDH3, HEMDF ####[address] [place], [place] RBC (Bld) [#/Vol] 4.85 10*6/uL Normal 3.80-5.20 [facility] Comment on above: Performed By: #### L FT3, FERR3, DDI2, PHOS3, MG3, ICA, CRP2, BMP3M, LDH3, HEMDF ####[address] [place], [place] WBC (Bld) [#/Vol] 12.1 10*3/uL High 3.6-10.7 [facility] Comment on above: Performed By: #### L FT3, FERR3, DDI2, PHOS3, MG3, ICA, CRP2, BMP3M, LDH3, HEMDF ####[address] [place], [place] Hepatic Functionon 1 ALP [Catalytic activity/Vol] 81 U/L Normal 38-126 [facility] Comment on above: Performed By: #### L FT3, FERR3, DDI2, PHOS3, MG3, ICA, CRP2, BMP3M, LDH3, HEMDF ####[address] [place], [place] ALT [Catalytic activity/Vol] 72 U/L High 0-34 [facility] Comment on above: Result Comment: The ALT test is performed by an updated assay method.Please note that the reference intervals have beenchanged and are now sex specific. Performed By: #### L FT3, FERR3, DDI2, PHOS3, MG3, ICA, CRP2, BMP3M, LDH3, HEMDF ####[address] AST [Catalytic activity/Vol] 32 U/L Normal 15-46 [facility] Comment on above: Performed By: #### L FT3, FERR3, DDI2, PHOS3, MG3, ICA, CRP2, BMP3M, LDH3, HEMDF ####[address] Bilirubin [Mass/Vol] 0.4 mg/dL Normal 0.2-1.3 [facility] Comment on above: Performed By: #### L FT3, FERR3, DDI2, PHOS3, MG3, ICA, CRP2, BMP3M, LDH3, HEMDF ####[address] Protein [Mass/Vol] 6.3 g/dL Normal 6.3-8.2 [facility] Comment on above: Performed By: #### L FT3, FERR3, DDI2, PHOS3, MG3, ICA, CRP2, BMP3M, LDH3, HEMDF ####[address] Bilirubin.indirect [Mass/Vol] 0.0 mg/dL Normal 0.0-0.3 [facility] Comment on above: Performed By: #### L FT3, FERR3, DDI2, PHOS3, MG3, ICA, CRP2, BMP3M, LDH3, HEMDF ####[address] Albumin [Mass/Vol] 3.2 g/dL Low 3.5-5.0 [facility] Comment on above: Performed By: #### L FT3, FERR3, DDI2, PHOS3, MG3, ICA, CRP2, BMP3M, LDH3, HEMDF ####[address] LDHon 06-11-2021 LDH 264 U/L High 120-246 [facility] Comment on above: Performed By: #### L FT3, FERR3, DDI2, PHOS3, MG3, ICA, CRP2, BMP3M, LDH3, HEMDF ####[address] [place] [address] Magnesiumon 06-11-2021 Magnesium [Mass/Vol] 2.6 mg/dL High 1.6-2.3 [facility] Comment on above: Performed By: #### L FT3, FERR3, DDI2, PHOS3, MG3, ICA, CRP2, BMP3M, LDH3, HEMDF ####[address] [place] [address] Phosphoruson 06-11-2021 Phosphate [Mass/Vol] 3.7 mg/dL Normal 2.5-4.5 [facility] Comment on above: Performed By: #### L FT3, FERR3, DDI2, PHOS3, MG3, ICA, CRP2, BMP3M, LDH3, HEMDF ####[address] [place] [address] Arterial Blood Gaseson 06-10 CO2 [Moles/Vol] 36.1 mmol/L High 23.0-27.0 [facility] Comment on above: Performed By: #### A BG ####[address] [place] [address] HCO3 (Bld) [Moles/Vol] 34.5 mmol/L High 21.0-25.0 [facility] Comment on above: Performed By: #### A BG ####[address] [place] [address] Hemoglobin (Bld) [Mass/Vol] 12.2 g/dL Normal ScreenOnly [facility] Comment on above: Performed By: #### A BG ####[address] [place] [address] Oxygen (Bld) [Partial pressure] 87.2 mm[Hg] Normal 80.0-100.0 [facility] Comment on above: Performed By: #### A BG ####[address] Oxygen saturation in Blood 95.5 % Normal 95.0-100.0 [facility] Comment on above: Performed By: #### A BG ####[address] [place], [place] pCO2 50.8 mm[Hg] High 35.0-45.0 [facility] Comment on above: Performed By: #### A BG ####[address] [place], [place] pH 7.450 Normal 7.350-7.450 [facility] Comment on above: Performed By: #### A BG ####[address] Std Base Excess 9.1 mmol/L High -3.0-3.0 [facility] Comment on above: Performed By: #### A BG ####[address] [place], [place] FIO2 No data Normal [facility] Comment on above: Performed By: #### A BG ####[address] FIO2 No data, on ice Normal [facility] Comment on above: Result Comment: This [...] clinically indicated. Performed By: #### A BG ####[address] [place], [place] CO2 [Moles/Vol] 35.3 mmol/L High 23.0-27.0 [facility] Comment on above: Performed By: #### A BG ####[address] [place], [place] HCO3 (Bld) [Moles/Vol] 33.9 mmol/L High 21.0-25.0 [facility] Comment on above: Performed By: #### A BG ####[address] Hemoglobin (Bld) [Mass/Vol] 11.7 g/dL Normal ScreenOnly [facility] Comment on above: Performed By: #### A BG ####[address] [place], [place] Oxygen (Bld) [Partial pressure] 68.7 mm[Hg] Low 80.0-100.0 [facility] Comment on above: Performed By: #### A BG ####[address] [place], [place] Oxygen saturation in Blood 92.6 % Low 95.0-100.0 [facility] Comment on above: Performed By: #### A BG ####[address] [place], [place] pCO2 44.4 mm[Hg] Normal 35.0-45.0 [facility] Comment on above: Performed By: #### A BG ####[address] pH 7.501 High 7.350-7.450 [facility] Comment on above: Performed By: #### A BG ####[address] Std Base Excess 9.7 mmol/L High -3.0-3.0 [facility] Comment on above: Performed By: #### A BG ####[address] [place], [place] Basic Metabolic Panelon 05-30 Anion gap [Moles/Vol] 5 mmol/L Normal 3-13 [facility] Comment on above: Performed By: #### L FT3, BMP3M, HEMDF, CRP2, DDI2, MG3, LDH3, PHOS3, FERR3, ICA ####[address] [place], [place] Calcium [Mass/Vol] 8.9 mg/dL Normal 8.4-10.4 [facility] Comment on above: Performed By: #### L FT3, BMP3M, HEMDF, CRP2, DDI2, MG3, LDH3, PHOS3, FERR3, ICA ####[address] [place] CO2 [Moles/Vol] 32 mmol/L High 22-30 [facility] Comment on above: Performed By: #### L FT3, BMP3M, HEMDF, CRP2, DDI2, MG3, LDH3, PHOS3, FERR3, ICA ####[address] [place], [place] Glucose [Mass/Vol] 129 mg/dL High 70-100 [facility] Comment on above: Performed By: #### L FT3, BMP3M, HEMDF, CRP2, DDI2, MG3, LDH3, PHOS3, FERR3, ICA ####[address] Urea nitrogen [Mass/Vol] 65 mg/dL High 7-20 [facility] Comment on above: Performed By: #### L FT3, BMP3M, HEMDF, CRP2, DDI2, MG3, LDH3, PHOS3, FERR3, ICA ####[address] Creatinine [Mass/Vol] 0.81 mg/dL Normal 0.52-1.25 [facility] Comment on above: Performed By: #### L FT3, BMP3M, HEMDF, CRP2, DDI2, MG3, LDH3, PHOS3, FERR3, ICA ####[address] GFR/1.73 sq M.predicted among blacks MDRD (S/P/Bld) [Vol rate/Area] mL/min/{1.73_m2} Normal >60 [facility] Comment on above: Performed By: #### L FT3, BMP3M, HEMDF, CRP2, DDI2, MG3, LDH3, PHOS3, FERR3, ICA ####[address] [place], [place] GFR/1.73 sq M.predicted among non-blacks MDRD (S/P/Bld) [Vol rate/Area] 82.7 mL/min/{1.73_m2} Normal >60 [facility] Comment on above: Result Comment: KDIG O guidelines provide the following GFR categories:Stage GFR(ml/min/1.73 m2) TermsG1 >=90 Normal or highG2 60-89 Mildly decreased*G3a 45-59 Mildly to moderately [id number] 30-44 Moderately to severely decreasedG4 15-29 Severely [...] CRP2, DDI2, MG3, LDH3, PHOS3, FERR3, ICA ####[address] [place], [place] Potassium [Moles/Vol] 4.2 mmol/L Normal 3.5-5.1 [facility] Comment on above: Performed By: #### L FT3, BMP3M, HEMDF, CRP2, DDI2, MG3, LDH3, PHOS3, FERR3, ICA ####[address] [place], [place] Sodium [Moles/Vol] 146 mmol/L High 135-145 [facility] Comment on above: Performed By: #### L FT3, BMP3M, HEMDF, CRP2, DDI2, MG3, LDH3, PHOS3, FERR3, ICA ####[address] [place], [place] Chloride [Moles/Vol] 109 mmol/L High 98-107 [facility] Comment on above: Performed By: #### L FT3, BMP3M, HEMDF, CRP2, DDI2, MG3, LDH3, PHOS3, FERR3, ICA ####[address] [place] [address] C-Reactive Proteinon 021 CRP [Mass/Vol] 7.1 mg/L High 0.0-6.0 [facility] Comment on above: Result Comment: . Performed By: #### L FT3, BMP3M, HEMDF, CRP2, DDI2, MG3, LDH3, PHOS3, FERR3, ICA ####[address] [place], [place] CR Chest Portableon 06-10-20 21 CR Chest Portable Normal [facility] CULT./ST. RESPIRATORYon 05-30 CULT./ST. RESPIRATORY CULT./ST. RESPIRAT ORY --> Status: F No growth of normal respiratory pretty. 1 Organism Evin albicans Few Normal [facility] Comment on above: Performed By: #### C S/RE, S/GRM ####[address] [place], [place] Calcium,Ionizedon 06-10-2021 Ionized Ca,Measured 4.60 mg/dL Normal 4.30-5.20 [facility] Comment on above: Performed By: #### L FT3, BMP3M, HEMDF, CRP2, DDI2, MG3, LDH3, PHOS3, FERR3, ICA ####[address] [place], [place] pH, Ionized Calcium 7.49 High 7.31-7.46 [facility] Comment on above: Performed By: #### L FT3, BMP3M, HEMDF, CRP2, DDI2, MG3, LDH3, PHOS3, FERR3, ICA ####[address] [place], [place] D-Dimer, Innovanceon 021 D-Dimer, Innovance 20.61 mg/L High <0.19-0.50 [facility] Comment on above: Result Comment: Inno carrington D-Dimer values of <0.50 mg/L FEU can be used incombination with a pre-test probability model (e.g. Well's)to exclude pulmonary embolism (PE) disease, as well as jodi in the diagnosis of deep vein thrombosis (DVT). Performed By: #### L FT3, BMP3M, HEMDF, CRP2, DDI2, MG3, LDH3, PHOS3, FERR3, ICA ####[employer] [id number] [place] [address] Ferritinon 06-10-2021 Ferritin [Mass/Vol] 54 ng/mL Normal 8-252 [facility] Comment on above: Performed By: #### L FT3, BMP3M, HEMDF, CRP2, DDI2, MG3, LDH3, PHOS3, FERR3, ICA ####[employer] [id number] [place] [address] Glucose,Bedsideon 06-10-2021 Glucose [Mass/Vol] 150 mg/dL High 70-100 [facility] Comment on above: Result Comment: Test performed by glucose meter. Results may be 10%-15% lowerthan serum/plasma values. (CLIA ID [id number]) Performed By: #### B GLU ####[id number] [place] [address] Glucose [Mass/Vol] 164 mg/dL High 70-100 [facility] Comment on above: Result Comment: Test performed by glucose meter. Results may be 10%-15% lowerthan serum/plasma values. (CLIA ID [id number]) Performed By: #### B GLU ####[id number] [place] [address] Glucose [Mass/Vol] 130 mg/dL High 70-100 [facility] Comment on above: Result Comment: Test performed by glucose meter. Results may be 10%-15% lowerthan serum/plasma values. (CLIA ID [id number]) Performed By: #### B GLU ####[employer] [id number] [place] [address] Glucose [Mass/Vol] 121 mg/dL High 70-100 [facility] Comment on above: Result Comment: Test performed by glucose meter. Results may be 10%-15% lowerthan serum/plasma values. (CLIA ID [id number]) Performed By: #### B GLU ####[address] Hemogram w/ Autodiffon 06-10 Abs Baso Cnt 0.0 10*3/uL Normal 0.0-0.2 [facility] Comment on above: Performed By: #### L FT3, BMP3M, HEMDF, CRP2, DDI2, MG3, LDH3, PHOS3, FERR3, ICA ####[address] Abs Neutrophile Cnt 8.8 10*3/uL High 1.8-7.0 [facility] Comment on above: Performed By: #### L FT3, BMP3M, HEMDF, CRP2, DDI2, MG3, LDH3, PHOS3, FERR3, ICA ####[address] Basophils/100 WBC (Bld) 0.2 % Normal 0.0-2.0 [facility] Comment on above: Performed By: #### L FT3, BMP3M, HEMDF, CRP2, DDI2, MG3, LDH3, PHOS3, FERR3, ICA ####[address] Eosinophils (Bld) [#/Vol] 0.1 10*3/uL Normal 0.0-0.5 [facility] Comment on above: Performed By: #### L FT3, BMP3M, HEMDF, CRP2, DDI2, MG3, LDH3, PHOS3, FERR3, ICA ####[address] Eosinophils/100 WBC (Bld) 1.2 % Normal 1.0-6.0 [facility] Comment on above: Performed By: #### L FT3, BMP3M, HEMDF, CRP2, DDI2, MG3, LDH3, PHOS3, FERR3, ICA ####[address] Erythrocyte distribution width (RBC) [Ratio] 20.6 % High 11.5-14.5 [facility] Comment on above: Performed By: #### L FT3, BMP3M, HEMDF, CRP2, DDI2, MG3, LDH3, PHOS3, FERR3, ICA ####[address] Granulocytes/100 WBC (Bld) 82.5 % High 40.0-80.0 [facility] Comment on above: Performed By: #### L FT3, BMP3M, HEMDF, CRP2, DDI2, MG3, LDH3, PHOS3, FERR3, ICA ####[address] Hematocrit (Bld) [Volume fraction] 33.7 % Low 35.0-47.0 [facility] Comment on above: Performed By: #### L FT3, BMP3M, HEMDF, CRP2, DDI2, MG3, LDH3, PHOS3, FERR3, ICA ####[address] Hemoglobin (Bld) [Mass/Vol] 10.6 g/dL Low 11.7-16.0 [facility] Comment on above: Performed By: #### L FT3, BMP3M, HEMDF, CRP2, DDI2, MG3, LDH3, PHOS3, FERR3, ICA ####[address] Lymphocytes (Bld) [#/Vol] 0.7 10*3/uL Low 1.0-4.3 [facility] Comment on above: Performed By: #### L FT3, BMP3M, HEMDF, CRP2, DDI2, MG3, LDH3, PHOS3, FERR3, ICA ####[address] Lymphocytes/100 WBC (Bld) 6.9 % Low 20.0-40.0 [facility] Comment on above: Performed By: #### L FT3, BMP3M, HEMDF, CRP2, DDI2, MG3, LDH3, PHOS3, FERR3, ICA ####[id number] [place], [place] MCH (RBC) [Entitic mass] 22.5 pg Low 26.0-34.0 [facility] Comment on above: Performed By: #### L FT3, BMP3M, HEMDF, CRP2, DDI2, MG3, LDH3, PHOS3, FERR3, ICA ####[address] MCHC 31.4 % Low 32.0-36.0 [facility] Comment on above: Performed By: #### L FT3, BMP3M, HEMDF, CRP2, DDI2, MG3, LDH3, PHOS3, FERR3, ICA ####[address] MCV (RBC) [Entitic vol] 71.7 fL Low 79.0-98.0 [facility] Comment on above: Performed By: #### L FT3, BMP3M, HEMDF, CRP2, DDI2, MG3, LDH3, PHOS3, FERR3, ICA ####[address] Monocytes (Bld) [#/Vol] 1.0 10*3/uL High 0.0-0.8 [facility] Comment on above: Performed By: #### L FT3, BMP3M, HEMDF, CRP2, DDI2, MG3, LDH3, PHOS3, FERR3, ICA ####[address] Monocytes/100 WBC (Bld) 9.2 % Normal 2.0-10.0 [facility] Comment on above: Performed By: #### L FT3, BMP3M, HEMDF, CRP2, DDI2, MG3, LDH3, PHOS3, FERR3, ICA ####[address] [place] Platelet mean volume (Bld) [Entitic vol] 7.9 fL Normal 7.4-10.4 [facility] Comment on above: Performed By: #### L FT3, BMP3M, HEMDF, CRP2, DDI2, MG3, LDH3, PHOS3, FERR3, ICA ####[address] [place], [place] Platelets (Bld) [#/Vol] 253 10*3/uL Normal 140-440 [facility] Comment on above: Performed By: #### L FT3, BMP3M, HEMDF, CRP2, DDI2, MG3, LDH3, PHOS3, FERR3, ICA ####[address] [place], [place] RBC (Bld) [#/Vol] 4.70 10*6/uL Normal 3.80-5.20 [facility] Comment on above: Performed By: #### L FT3, BMP3M, HEMDF, CRP2, DDI2, MG3, LDH3, PHOS3, FERR3, ICA ####[address] [place], [place] WBC (Bld) [#/Vol] 10.7 10*3/uL Normal 3.6-10.7 [facility] Comment on above: Performed By: #### L FT3, BMP3M, HEMDF, CRP2, DDI2, MG3, LDH3, PHOS3, FERR3, ICA ####[address] [place], [place] Hepatic Functionon 1 ALP [Catalytic activity/Vol] 80 U/L Normal 38-126 [facility] Comment on above: Performed By: #### L FT3, BMP3M, HEMDF, CRP2, DDI2, MG3, LDH3, PHOS3, FERR3, ICA ####[address] [place], [place] ALT [Catalytic activity/Vol] 85 U/L High 0-34 [facility] Comment on above: Result Comment: The ALT test is performed by an updated assay method.Please note that the reference intervals have beenchanged and are now sex specific. Performed By: #### L FT3, BMP3M, HEMDF, CRP2, DDI2, MG3, LDH3, PHOS3, FERR3, ICA ####[address] AST [Catalytic activity/Vol] 38 U/L Normal 15-46 [facility] Comment on above: Performed By: #### L FT3, BMP3M, HEMDF, CRP2, DDI2, MG3, LDH3, PHOS3, FERR3, ICA ####[address] Bilirubin [Mass/Vol] 0.6 mg/dL Normal 0.2-1.3 [facility] Comment on above: Performed By: #### L FT3, BMP3M, HEMDF, CRP2, DDI2, MG3, LDH3, PHOS3, FERR3, ICA ####[address] Bilirubin.indirect [Mass/Vol] 0.0 mg/dL Normal 0.0-0.3 [facility] Comment on above: Performed By: #### L FT3, BMP3M, HEMDF, CRP2, DDI2, MG3, LDH3, PHOS3, FERR3, ICA ####[address] Protein [Mass/Vol] 6.5 g/dL Normal 6.3-8.2 [facility] Comment on above: Performed By: #### L FT3, BMP3M, HEMDF, CRP2, DDI2, MG3, LDH3, PHOS3, FERR3, ICA ####[address] Albumin [Mass/Vol] 3.2 g/dL Low 3.5-5.0 [facility] Comment on above: Performed By: #### L FT3, BMP3M, HEMDF, CRP2, DDI2, MG3, LDH3, PHOS3, FERR3, ICA ####[address] [place] [address] LDHon 06-10-2021 LDH 268 U/L High 120-246 [facility] Comment on above: Performed By: #### L FT3, BMP3M, HEMDF, CRP2, DDI2, MG3, LDH3, PHOS3, FERR3, ICA ####[facility] [place], [place] Magnesiumon 06-10-2021 Magnesium [Mass/Vol] 2.7 mg/dL High 1.6-2.3 [facility] Comment on above: Performed By: #### L FT3, BMP3M, HEMDF, CRP2, DDI2, MG3, LDH3, PHOS3, FERR3, ICA ####[address] [place] [address] Phosphoruson 06-10-2021 Phosphate [Mass/Vol] 3.5 mg/dL Normal 2.5-4.5 [facility] Comment on above: Performed By: #### L FT3, BMP3M, HEMDF, CRP2, DDI2, MG3, LDH3, PHOS3, FERR3, ICA ####[address] [place], [place] VL Venous Duplex US Upper Ex t Bilateralon 06-10-2021 VL Venous Duplex US Upper Ext Bilateral Normal [facility] Arterial Blood Gaseson 06-09 CO2 [Moles/Vol] 31.8 mmol/L High 23.0-27.0 [facility] Comment on above: Performed By: #### A BG ####[address] [place], [place] HCO3 (Bld) [Moles/Vol] 30.4 mmol/L High 21.0-25.0 [facility] Comment on above: Performed By: #### A BG ####[address] [place] [address] Hemoglobin (Bld) [Mass/Vol] 10.9 g/dL Normal ScreenOnly [facility] Comment on above: Performed By: #### A BG ####[address] [place], [place] Oxygen (Bld) [Partial pressure] 85.3 mm[Hg] Normal 80.0-100.0 [facility] Comment on above: Performed By: #### A BG ####[address] [place], [place] Oxygen saturation in Blood 96.1 % Normal 95.0-100.0 [facility] Comment on above: Performed By: #### A BG ####[address] [place], [place] pCO2 45.2 mm[Hg] High 35.0-45.0 [facility] Comment on above: Performed By: #### A BG ####[address] pH 7.446 Normal 7.350-7.450 [facility] Comment on above: Performed By: #### A BG ####[address] Std Base Excess 5.7 mmol/L High -3.0-3.0 [facility] Comment on above: Performed By: #### A BG ####[address] FIO2 40% Normal [facility] Comment on above: Performed By: #### A BG ####[address] [place], [place] CO2 [Moles/Vol] 31.6 mmol/L High 23.0-27.0 [facility] Comment on above: Performed By: #### A BG ####[address] HCO3 (Bld) [Moles/Vol] 30.2 mmol/L High 21.0-25.0 [facility] Comment on above: Performed By: #### A BG ####[address] Hemoglobin (Bld) [Mass/Vol] 12.4 g/dL Normal ScreenOnly [facility] Comment on above: Performed By: #### A BG ####[address] [place], [place] Oxygen (Bld) [Partial pressure] 77.1 mm[Hg] Low 80.0-100.0 [facility] Comment on above: Performed By: #### A BG ####[address] [address] [place], [place] Oxygen saturation in Blood 94.9 % Low 95.0-100.0 [facility] Comment on above: Performed By: #### A BG ####[address] [address] [place], [place] pCO2 46.4 mm[Hg] High 35.0-45.0 [facility] Comment on above: Performed By: #### A BG ####[address] [place], [place] pH 7.431 Normal 7.350-7.450 [facility] Comment on above: Performed By: #### A BG ####[address] Std Base Excess 5.1 mmol/L High -3.0-3.0 [facility] Comment on above: Performed By: #### A BG ####[address] FIO2 No data Normal [facility] Comment on above: Performed By: #### A BG ####[address] Basic Metabolic Panelon 07- Calcium [Mass/Vol] 8.6 mg/dL Normal 8.4-10.4 [facility] Comment on above: Performed By: #### L DH3, ICA, HEMDF, BMP3M, LFT3, CRP2, MG3, FERR3, PHOS3, DDI2 ####[address] [place], [place] Anion gap [Moles/Vol] 4 mmol/L Normal 3-13 [facility] Comment on above: Performed By: #### L DH3, ICA, HEMDF, BMP3M, LFT3, CRP2, MG3, FERR3, PHOS3, DDI2 ####[address] CO2 [Moles/Vol] 32 mmol/L High 22-30 [facility] Comment on above: Performed By: #### L DH3, ICA, HEMDF, BMP3M, LFT3, CRP2, MG3, FERR3, PHOS3, DDI2 ####[address] Glucose [Mass/Vol] 125 mg/dL High 70-100 [facility] Comment on above: Performed By: #### L DH3, ICA, HEMDF, BMP3M, LFT3, CRP2, MG3, FERR3, PHOS3, DDI2 ####[address] Urea nitrogen [Mass/Vol] 72 mg/dL High 7-20 [facility] Comment on above: Performed By: #### L DH3, ICA, HEMDF, BMP3M, LFT3, CRP2, MG3, FERR3, PHOS3, DDI2 ####[address] Creatinine [Mass/Vol] 1.10 mg/dL Normal 0.52-1.25 [facility] Comment on above: Performed By: #### L DH3, ICA, HEMDF, BMP3M, LFT3, CRP2, MG3, FERR3, PHOS3, DDI2 ####[address] GFR/1.73 sq M.predicted among blacks MDRD (S/P/Bld) [Vol rate/Area] 66.2 mL/min/{1.73_m2} Normal >60 [facility] Comment on above: Performed By: #### L DH3, ICA, HEMDF, BMP3M, LFT3, CRP2, MG3, FERR3, PHOS3, DDI2 ####[address] GFR/1.73 sq M.predicted among non-blacks MDRD (S/P/Bld) [Vol rate/Area] 57.1 mL/min/{1.73_m2} Abnormal >60 [facility] Comment on above: Result Comment: KDIG O guidelines provide the following GFR categories:Stage GFR(ml/min/1.73 m2) TermsG1 >=90 Normal or highG2 60-89 Mildly decreased*G3a 45-59 Mildly to moderately [id number] 30-44 Moderately to severely decreasedG4 15-29 Severely [...] BMP3M, LFT3, CRP2, MG3, FERR3, PHOS3, DDI2 ####[address] Potassium [Moles/Vol] 4.0 mmol/L Normal 3.5-5.1 [facility] Comment on above: Performed By: #### L DH3, ICA, HEMDF, BMP3M, LFT3, CRP2, MG3, FERR3, PHOS3, DDI2 ####[address] [place], [place] Chloride [Moles/Vol] 108 mmol/L High 98-107 [facility] Comment on above: Performed By: #### L DH3, ICA, HEMDF, BMP3M, LFT3, CRP2, MG3, FERR3, PHOS3, DDI2 ####[address] Sodium [Moles/Vol] 143 mmol/L Normal 135-145 [facility] Comment on above: Performed By: #### L DH3, ICA, HEMDF, BMP3M, LFT3, CRP2, MG3, FERR3, PHOS3, DDI2 ####[address] [place], [place] C-Reactive Proteinon 021 CRP [Mass/Vol] 9.7 mg/L High 0.0-6.0 [facility] Comment on above: Result Comment: . Performed By: #### L DH3, ICA, HEMDF, BMP3M, LFT3, CRP2, MG3, FERR3, PHOS3, DDI2 ####[address] [place], [place] CR Chest Portableon 06-09-20 21 CR Chest Portable Normal [facility] CULTURE BLOODon 06-09-2021 Microscopic examination of blood, culture CULTURE BLOOD --> Status: F No growth at 5 days. Normal [facility] Comment on above: Performed By: #### C /BLD ####[address] CULTURE BLOOD (Two)on 2020 Microscopic examination of blood, culture CULTURE BLOOD (Two) --> Status: F No growth at 5 days. Normal [facility] Comment on above: Performed By: #### C /BLT ####[address] Calcium,Ionizedon 06-09-2021 Ionized Ca,Measured 4.50 mg/dL Normal 4.30-5.20 [facility] Comment on above: Performed By: #### L DH3, ICA, HEMDF, BMP3M, LFT3, CRP2, MG3, FERR3, PHOS3, DDI2 ####[address] [place], [place] pH, Ionized Calcium 7.44 Normal 7.31-7.46 [facility] Comment on above: Performed By: #### L DH3, ICA, HEMDF, BMP3M, LFT3, CRP2, MG3, FERR3, PHOS3, DDI2 ####[email or web address] [facility] [place] [address] D-Dimer, Innovanceon 06-09- 021 D-Dimer, [employer] 25.09 mg/L High <0.19-0.50 [facility] Comment on above: Result Comment: Inno carrington D-Dimer values of <0.50 mg/L FEU can be used incombination with a pre-test probability model (e.g. Well's)to exclude pulmonary embolism (PE) disease, as well as jodi in the diagnosis of deep vein thrombosis (DVT). Performed By: #### L DH3, ICA, HEMDF, BMP3M, LFT3, CRP2, MG3, FERR3, PHOS3, DDI2 ####[employer] [place] [address] Ferritinon 06-09-2021 Ferritin [Mass/Vol] 62 ng/mL Normal 8-252 [facility] Comment on above: Performed By: #### L DH3, ICA, HEMDF, BMP3M, LFT3, CRP2, MG3, FERR3, PHOS3, DDI2 ####[email or web address] [facility] [place] [address] Glucose,Bedsideon 06-09-2021 Glucose [Mass/Vol] 154 mg/dL High 70-100 [facility] Comment on above: Result Comment: Test performed by glucose meter. Results may be 10%-15% lowerthan serum/plasma values. (CLIA ID [id number]) Performed By: #### B GLU ####[employer] [facility] [place] [address] Glucose [Mass/Vol] 179 mg/dL High 70-100 [facility] Comment on above: Result Comment: Test performed by glucose meter. Results may be 10%-15% lowerthan serum/plasma values. (CLIA ID [id number]) Performed By: #### B GLU ####[employer] [facility] [place] [address] Glucose [Mass/Vol] 128 mg/dL High 70-100 [facility] Comment on above: Result Comment: Test performed by glucose meter. Results may be 10%-15% lowerthan serum/plasma values. (CLIA ID [id number]) Performed By: #### B GLU ####[address] Hemogram w/ Autodiffon 06-09 Abs Baso Cnt 0.0 10*3/uL Normal 0.0-0.2 [facility] Comment on above: Performed By: #### L DH3, ICA, HEMDF, BMP3M, LFT3, CRP2, MG3, FERR3, PHOS3, DDI2 ####[address] Abs Neutrophile Cnt 8.3 10*3/uL High 1.8-7.0 [facility] Comment on above: Performed By: #### L DH3, ICA, HEMDF, BMP3M, LFT3, CRP2, MG3, FERR3, PHOS3, DDI2 ####[address] Basophils/100 WBC (Bld) 0.1 % Normal 0.0-2.0 [facility] Comment on above: Performed By: #### L DH3, ICA, HEMDF, BMP3M, LFT3, CRP2, MG3, FERR3, PHOS3, DDI2 ####[address] Eosinophils (Bld) [#/Vol] 0.2 10*3/uL Normal 0.0-0.5 [facility] Comment on above: Performed By: #### L DH3, ICA, HEMDF, BMP3M, LFT3, CRP2, MG3, FERR3, PHOS3, DDI2 ####[address] Eosinophils/100 WBC (Bld) 1.6 % Normal 1.0-6.0 [facility] Comment on above: Performed By: #### L DH3, ICA, HEMDF, BMP3M, LFT3, CRP2, MG3, FERR3, PHOS3, DDI2 ####[address] Erythrocyte distribution width (RBC) [Ratio] 21.0 % High 11.5-14.5 [facility] Comment on above: Performed By: #### L DH3, ICA, HEMDF, BMP3M, LFT3, CRP2, MG3, FERR3, PHOS3, DDI2 ####[address] Granulocytes/100 WBC (Bld) 81.2 % High 40.0-80.0 [facility] Comment on above: Performed By: #### L DH3, ICA, HEMDF, BMP3M, LFT3, CRP2, MG3, FERR3, PHOS3, DDI2 ####[address] Hematocrit (Bld) [Volume fraction] 33.5 % Low 35.0-47.0 [facility] Comment on above: Performed By: #### L DH3, ICA, HEMDF, BMP3M, LFT3, CRP2, MG3, FERR3, PHOS3, DDI2 ####[address] Hemoglobin (Bld) [Mass/Vol] 10.5 g/dL Low 11.7-16.0 [facility] Comment on above: Performed By: #### L DH3, ICA, HEMDF, BMP3M, LFT3, CRP2, MG3, FERR3, PHOS3, DDI2 ####[address] Lymphocytes (Bld) [#/Vol] 0.8 10*3/uL Low 1.0-4.3 [facility] Comment on above: Performed By: #### L DH3, ICA, HEMDF, BMP3M, LFT3, CRP2, MG3, FERR3, PHOS3, DDI2 ####[address] Lymphocytes/100 WBC (Bld) 8.0 % Low 20.0-40.0 [facility] Comment on above: Performed By: #### L DH3, ICA, HEMDF, BMP3M, LFT3, CRP2, MG3, FERR3, PHOS3, DDI2 ####[address] MCH (RBC) [Entitic mass] 22.2 pg Low 26.0-34.0 [facility] Comment on above: Performed By: #### L DH3, ICA, HEMDF, BMP3M, LFT3, CRP2, MG3, FERR3, PHOS3, DDI2 ####[address] MCHC 31.4 % Low 32.0-36.0 [facility] Comment on above: Performed By: #### L DH3, ICA, HEMDF, BMP3M, LFT3, CRP2, MG3, FERR3, PHOS3, DDI2 ####[address] MCV (RBC) [Entitic vol] 70.7 fL Low 79.0-98.0 [facility] Comment on above: Performed By: #### L DH3, ICA, HEMDF, BMP3M, LFT3, CRP2, MG3, FERR3, PHOS3, DDI2 ####[address] [place], [place] Monocytes (Bld) [#/Vol] 0.9 10*3/uL High 0.0-0.8 [facility] Comment on above: Performed By: #### L DH3, ICA, HEMDF, BMP3M, LFT3, CRP2, MG3, FERR3, PHOS3, DDI2 ####[address] Monocytes/100 WBC (Bld) 9.1 % Normal 2.0-10.0 [facility] Comment on above: Performed By: #### L DH3, ICA, HEMDF, BMP3M, LFT3, CRP2, MG3, FERR3, PHOS3, DDI2 ####[address] Platelet mean volume (Bld) [Entitic vol] 8.6 fL Normal 7.4-10.4 [facility] Comment on above: Performed By: #### L DH3, ICA, HEMDF, BMP3M, LFT3, CRP2, MG3, FERR3, PHOS3, DDI2 ####[address] [employer] [place], [place] Platelets (Bld) [#/Vol] 227 10*3/uL Normal 140-440 [facility] Comment on above: Performed By: #### L DH3, ICA, HEMDF, BMP3M, LFT3, CRP2, MG3, FERR3, PHOS3, DDI2 ####[address] [employer] [place], [place] RBC (Bld) [#/Vol] 4.73 10*6/uL Normal 3.80-5.20 [facility] Comment on above: Performed By: #### L DH3, ICA, HEMDF, BMP3M, LFT3, CRP2, MG3, FERR3, PHOS3, DDI2 ####[facility] [employer] [id number] [place], [place] WBC (Bld) [#/Vol] 10.2 10*3/uL Normal 3.6-10.7 [facility] Comment on above: Performed By: #### L DH3, ICA, HEMDF, BMP3M, LFT3, CRP2, MG3, FERR3, PHOS3, DDI2 ####[address] [place] Hepatic Functionon 1 ALP [Catalytic activity/Vol] 80 U/L Normal 38-126 [facility] Comment on above: Performed By: #### L DH3, ICA, HEMDF, BMP3M, LFT3, CRP2, MG3, FERR3, PHOS3, DDI2 ####[address] [place] ALT [Catalytic activity/Vol] 105 U/L High 0-34 [facility] Comment on above: Result Comment: The ALT test is performed by an updated assay method.Please note that the reference intervals have beenchanged and are now sex specific. Performed By: #### L DH3, ICA, HEMDF, BMP3M, LFT3, CRP2, MG3, FERR3, PHOS3, DDI2 ####[address] AST [Catalytic activity/Vol] 56 U/L High 15-46 [facility] Comment on above: Performed By: #### L DH3, ICA, HEMDF, BMP3M, LFT3, CRP2, MG3, FERR3, PHOS3, DDI2 ####[address] Bilirubin [Mass/Vol] 0.5 mg/dL Normal 0.2-1.3 [facility] Comment on above: Performed By: #### L DH3, ICA, HEMDF, BMP3M, LFT3, CRP2, MG3, FERR3, PHOS3, DDI2 ####[address] Bilirubin.indirect [Mass/Vol] 0.0 mg/dL Normal 0.0-0.3 [facility] Comment on above: Performed By: #### L DH3, ICA, HEMDF, BMP3M, LFT3, CRP2, MG3, FERR3, PHOS3, DDI2 ####[address] Protein [Mass/Vol] 6.3 g/dL Normal 6.3-8.2 [facility] Comment on above: Performed By: #### L DH3, ICA, HEMDF, BMP3M, LFT3, CRP2, MG3, FERR3, PHOS3, DDI2 ####[address] Albumin [Mass/Vol] 3.2 g/dL Low 3.5-5.0 [facility] Comment on above: Performed By: #### L DH3, ICA, HEMDF, BMP3M, LFT3, CRP2, MG3, FERR3, PHOS3, DDI2 ####[address] [place] [address] LDHon 06-09-2021 LDH 298 U/L High 120-246 [facility] Comment on above: Performed By: #### L DH3, ICA, HEMDF, BMP3M, LFT3, CRP2, MG3, FERR3, PHOS3, DDI2 ####[address] [place], [place] Magnesiumon 06-09-2021 Magnesium [Mass/Vol] 2.7 mg/dL High 1.6-2.3 [facility] Comment on above: Performed By: #### L DH3, ICA, HEMDF, BMP3M, LFT3, CRP2, MG3, FERR3, PHOS3, DDI2 ####[address] [place], [place] Phosphoruson 06-09-2021 Phosphate [Mass/Vol] 3.7 mg/dL Normal 2.5-4.5 [facility] Comment on above: Performed By: #### L DH3, ICA, HEMDF, BMP3M, LFT3, CRP2, MG3, FERR3, PHOS3, DDI2 ####[address] [place], [place] Add on test from HISon 06-08 Add on test from [facility] Accepted Normal [facility] Comment on above: Result Comment: Spec imen available & acceptable for analysis.Added to order- [id number] Performed By: #### A DDON ####[address] [place], [place] Arterial Blood Gaseson 06-08 CO2 [Moles/Vol] 33.3 mmol/L High 23.0-27.0 [facility] Comment on above: Performed By: #### A BG ####[address] [place], [place] HCO3 (Bld) [Moles/Vol] 31.7 mmol/L High 21.0-25.0 [facility] Comment on above: Performed By: #### A BG ####[address] [place], [place] Hemoglobin (Bld) [Mass/Vol] 11.2 g/dL Normal ScreenOnly [facility] Comment on above: Performed By: #### A BG ####[address] [place], [place] Oxygen (Bld) [Partial pressure] 116.1 mm[Hg] High 80.0-100.0 [facility] Comment on above: Performed By: #### A BG ####[address] Oxygen saturation in Blood 97.5 % Normal 95.0-100.0 [facility] Comment on above: Performed By: #### A BG ####[address] pCO2 50.5 mm[Hg] High 35.0-45.0 [facility] Comment on above: Performed By: #### A BG ####[address] pH 7.416 Normal 7.350-7.450 [facility] Comment on above: Performed By: #### A BG ####[address] Std Base Excess 6.2 mmol/L High -3.0-3.0 [facility] Comment on above: Performed By: #### A BG ####[address] FIO2 45% Normal [facility] Comment on above: Performed By: #### A BG ####[address] CO2 [Moles/Vol] 32.7 mmol/L High 23.0-27.0 [facility] Comment on above: Performed By: #### A BG ####[address] HCO3 (Bld) [Moles/Vol] 31.3 mmol/L High 21.0-25.0 [facility] Comment on above: Performed By: #### A BG ####[address] [place], [place] Hemoglobin (Bld) [Mass/Vol] 11.2 g/dL Normal ScreenOnly [facility] Comment on above: Performed By: #### A BG ####[address] [place], [place] Oxygen (Bld) [Partial pressure] 92.6 mm[Hg] Normal 80.0-100.0 [facility] Comment on above: Performed By: #### A BG ####[address] [place], [place] Oxygen saturation in Blood 96.2 % Normal 95.0-100.0 [facility] Comment on above: Performed By: #### A BG ####[address] [place], [place] pCO2 48.5 mm[Hg] High 35.0-45.0 [facility] Comment on above: Performed By: #### A BG ####[address] [place], [place] pH 7.427 Normal 7.350-7.450 [facility] Comment on above: Performed By: #### A BG ####[address] [place], [place] Std Base Excess 6.0 mmol/L High -3.0-3.0 [facility] Comment on above: Performed By: #### A BG ####[address] [place], [place] FIO2 35% Normal [facility] Comment on above: Performed By: #### A BG ####[address] [place], [place] CO2 [Moles/Vol] 30.4 mmol/L High 23.0-27.0 [facility] Comment on above: Performed By: #### A BG ####[address] [place], [place] HCO3 (Bld) [Moles/Vol] 29.0 mmol/L High 21.0-25.0 [facility] Comment on above: Performed By: #### A BG ####[address] [place], [place] Hemoglobin (Bld) [Mass/Vol] 13.3 g/dL Normal ScreenOnly [facility] Comment on above: Performed By: #### A BG ####[address] [place], [place] Oxygen (Bld) [Partial pressure] 64.4 mm[Hg] Low 80.0-100.0 [facility] Comment on above: Performed By: #### A BG ####[address] Oxygen saturation in Blood 90.9 % Low 95.0-100.0 [facility] Comment on above: Performed By: #### A BG ####[address] pCO2 47.6 mm[Hg] High 35.0-45.0 [facility] Comment on above: Performed By: #### A BG ####[address] pH 7.402 Normal 7.350-7.450 [facility] Comment on above: Performed By: #### A BG ####[address] Std Base Excess 3.4 mmol/L High -3.0-3.0 [facility] Comment on above: Performed By: #### A BG ####[address] FIO2 No data Normal [facility] Comment on above: Performed By: #### A BG ####[address] CO2 [Moles/Vol] 31.7 mmol/L High 23.0-27.0 [facility] Comment on above: Performed By: #### A BG ####[address] HCO3 (Bld) [Moles/Vol] 30.3 mmol/L High 21.0-25.0 [facility] Comment on above: Performed By: #### A BG ####[id number] [place], [place] Hemoglobin (Bld) [Mass/Vol] 10.6 g/dL Normal ScreenOnly [facility] Comment on above: Performed By: #### A BG ####[address] [id number] [place], [place] Oxygen (Bld) [Partial pressure] 79.8 mm[Hg] Low 80.0-100.0 [facility] Comment on above: Performed By: #### A BG ####[id number] [place], [place] Oxygen saturation in Blood 94.3 % Low 95.0-100.0 [facility] Comment on above: Performed By: #### A BG ####[address] pCO2 45.7 mm[Hg] High 35.0-45.0 [facility] Comment on above: Performed By: #### A BG ####[address] pH 7.439 Normal 7.350-7.450 [facility] Comment on above: Performed By: #### A BG ####[address] Std Base Excess 5.4 mmol/L High -3.0-3.0 [facility] Comment on above: Performed By: #### A BG ####[address] FIO2 No data Normal [facility] Comment on above: Performed By: #### A BG ####[address] Basic Metabolic Panelon 07-1 -2020 Calcium [Mass/Vol] 8.1 mg/dL Low 8.4-10.4 [facility] Comment on above: Performed By: #### L FT3, FERR3, HEMDF, DDI2, ICA, LDH3, BMP3M, MG3, CRP2, PHOS3 ####[address] Glucose [Mass/Vol] 123 mg/dL High 70-100 [facility] Comment on above: Performed By: #### L FT3, FERR3, HEMDF, DDI2, ICA, LDH3, BMP3M, MG3, CRP2, PHOS3 ####[address] [id number] [place], [place] Anion gap [Moles/Vol] 4 mmol/L Normal 3-13 [facility] Comment on above: Performed By: #### L FT3, FERR3, HEMDF, DDI2, ICA, LDH3, BMP3M, MG3, CRP2, PHOS3 ####[address] CO2 [Moles/Vol] 30 mmol/L Normal 22-30 [facility] Comment on above: Performed By: #### L FT3, FERR3, HEMDF, DDI2, ICA, LDH3, BMP3M, MG3, CRP2, PHOS3 ####[address] Urea nitrogen [Mass/Vol] 64 mg/dL High 7-20 [facility] Comment on above: Performed By: #### L FT3, FERR3, HEMDF, DDI2, ICA, LDH3, BMP3M, MG3, CRP2, PHOS3 ####[address] Creatinine [Mass/Vol] 1.04 mg/dL Normal 0.52-1.25 [facility] Comment on above: Performed By: #### L FT3, FERR3, HEMDF, DDI2, ICA, LDH3, BMP3M, MG3, CRP2, PHOS3 ####[address] GFR/1.73 sq M.predicted among blacks MDRD (S/P/Bld) [Vol rate/Area] 70.9 mL/min/{1.73_m2} Normal >60 [facility] Comment on above: Performed By: #### L FT3, FERR3, HEMDF, DDI2, ICA, LDH3, BMP3M, MG3, CRP2, PHOS3 ####[facility] [id number] [place] GFR/1.73 sq M.predicted among non-blacks MDRD (S/P/Bld) [Vol rate/Area] 61.2 mL/min/{1.73_m2} Normal >60 [facility] Comment on above: Result Comment: KDIG O guidelines provide the following GFR categories:Stage GFR(ml/min/1.73 m2) TermsG1 >=90 Normal or highG2 60-89 Mildly decreased*G3a 45-59 Mildly to moderately [id number] 30-44 Moderately to severely decreasedG4 15-29 Severely [...] DDI2, ICA, LDH3, BMP3M, MG3, CRP2, PHOS3 ####[employer] [id number] [employer] [place], [place] Potassium [Moles/Vol] 4.5 mmol/L Normal 3.5-5.1 [facility] Comment on above: Performed By: #### L FT3, FERR3, HEMDF, DDI2, ICA, LDH3, BMP3M, MG3, CRP2, PHOS3 ####[facility] [employer] [id number] [place] Sodium [Moles/Vol] 142 mmol/L Normal 135-145 [facility] Comment on above: Performed By: #### L FT3, FERR3, HEMDF, DDI2, ICA, LDH3, BMP3M, MG3, CRP2, PHOS3 ####[address] [place] [address] Chloride [Moles/Vol] 107 mmol/L Normal 98-107 [facility] Comment on above: Performed By: #### L FT3, FERR3, HEMDF, DDI2, ICA, LDH3, BMP3M, MG3, CRP2, PHOS3 ####[address] [place] [address] C-Reactive Proteinon 021 CRP [Mass/Vol] 19.8 mg/L High 0.0-6.0 [facility] Comment on above: Result Comment: . Performed By: #### L FT3, FERR3, HEMDF, DDI2, ICA, LDH3, BMP3M, MG3, CRP2, PHOS3 ####[address] [address] CR Chest Portableon 06-08-20 CR Chest Portable Normal [facility] Calcium,Ionizedon 06-08-2021 Ionized Ca,Measured 4.30 mg/dL Normal 4.30-5.20 [facility] Comment on above: Performed By: #### L FT3, FERR3, HEMDF, DDI2, ICA, LDH3, BMP3M, MG3, CRP2, PHOS3 ####[address] [address] pH, Ionized Calcium 7.43 Normal 7.31-7.46 [facility] Comment on above: Performed By: #### L FT3, FERR3, HEMDF, DDI2, ICA, LDH3, BMP3M, MG3, CRP2, PHOS3 ####[address] [address] D-Dimer, Innovanceon 021 D-Dimer, Innovance 25.13 mg/L High <0.19-0.50 [facility] Comment on above: Result Comment: Inno carrington D-Dimer values of <0.50 mg/L FEU can be used incombination with a pre-test probability model (e.g. Well's)to exclude pulmonary embolism (PE) disease, as well as jodi in the diagnosis of deep vein thrombosis (DVT). Performed By: #### L FT3, FERR3, HEMDF, DDI2, ICA, LDH3, BMP3M, MG3, CRP2, PHOS3 ####[employer] [id number] [place] [address] Ferritinon 06-08-2021 Ferritin [Mass/Vol] 72 ng/mL Normal 8-252 [facility] Comment on above: Performed By: #### L FT3, FERR3, HEMDF, DDI2, ICA, LDH3, BMP3M, MG3, CRP2, PHOS3 ####[facility] [employer] [id number] [place] [address] Glucose,Bedsideon 06-08-2021 Glucose [Mass/Vol] 165 mg/dL High 70-100 [facility] Comment on above: Result Comment: Test performed by glucose meter. Results may be 10%-15% lowerthan serum/plasma values. (CLIA ID [id number]) Performed By: #### B GLU ####[employer] [address] [place] [address] Glucose [Mass/Vol] 155 mg/dL High 70-100 [facility] Comment on above: Result Comment: Test performed by glucose meter. Results may be 10%-15% lowerthan serum/plasma values. (CLIA ID [id number]) Performed By: #### B GLU ####[id number] [place] [address] Glucose [Mass/Vol] 122 mg/dL High 70-100 [facility] Comment on above: Result Comment: Test performed by glucose meter. Results may be 10%-15% lowerthan serum/plasma values. (CLIA ID [id number]) Performed By: #### B GLU ####[id number] [place] [address] Glucose [Mass/Vol] 130 mg/dL High 70-100 [facility] Comment on above: Result Comment: Test performed by glucose meter. Results may be 10%-15% lowerthan serum/plasma values. (CLIA ID [id number]) Performed By: #### B GLU ####[address] Hemogram w/ Autodiffon 06-08 Abs Baso Cnt 0.0 10*3/uL Normal 0.0-0.2 [facility] Comment on above: Performed By: #### L FT3, FERR3, HEMDF, DDI2, ICA, LDH3, BMP3M, MG3, CRP2, PHOS3 ####[address] Abs Neutrophile Cnt 5.7 10*3/uL Normal 1.8-7.0 [facility] Comment on above: Performed By: #### L FT3, FERR3, HEMDF, DDI2, ICA, LDH3, BMP3M, MG3, CRP2, PHOS3 ####[address] Basophils/100 WBC (Bld) 0.1 % Normal 0.0-2.0 [facility] Comment on above: Performed By: #### L FT3, FERR3, HEMDF, DDI2, ICA, LDH3, BMP3M, MG3, CRP2, PHOS3 ####[address] Eosinophils (Bld) [#/Vol] 0.0 10*3/uL Normal 0.0-0.5 [facility] Comment on above: Performed By: #### L FT3, FERR3, HEMDF, DDI2, ICA, LDH3, BMP3M, MG3, CRP2, PHOS3 ####[address] Eosinophils/100 WBC (Bld) 0.5 % Low 1.0-6.0 [facility] Comment on above: Performed By: #### L FT3, FERR3, HEMDF, DDI2, ICA, LDH3, BMP3M, MG3, CRP2, PHOS3 ####[address] Erythrocyte distribution width (RBC) [Ratio] 20.1 % High 11.5-14.5 [facility] Comment on above: Performed By: #### L FT3, FERR3, HEMDF, DDI2, ICA, LDH3, BMP3M, MG3, CRP2, PHOS3 ####[address] Granulocytes/100 WBC (Bld) 81.8 % High 40.0-80.0 [facility] Comment on above: Performed By: #### L FT3, FERR3, HEMDF, DDI2, ICA, LDH3, BMP3M, MG3, CRP2, PHOS3 ####[address] Hematocrit (Bld) [Volume fraction] 31.8 % Low 35.0-47.0 [facility] Comment on above: Performed By: #### L FT3, FERR3, HEMDF, DDI2, ICA, LDH3, BMP3M, MG3, CRP2, PHOS3 ####[address] Hemoglobin (Bld) [Mass/Vol] 10.0 g/dL Low 11.7-16.0 [facility] Comment on above: Performed By: #### L FT3, FERR3, HEMDF, DDI2, ICA, LDH3, BMP3M, MG3, CRP2, PHOS3 ####[address] Lymphocytes (Bld) [#/Vol] 0.7 10*3/uL Low 1.0-4.3 [facility] Comment on above: Performed By: #### L FT3, FERR3, HEMDF, DDI2, ICA, LDH3, BMP3M, MG3, CRP2, PHOS3 ####[address] Lymphocytes/100 WBC (Bld) 9.6 % Low 20.0-40.0 [facility] Comment on above: Performed By: #### L FT3, FERR3, HEMDF, DDI2, ICA, LDH3, BMP3M, MG3, CRP2, PHOS3 ####[address] MCH (RBC) [Entitic mass] 22.0 pg Low 26.0-34.0 [facility] Comment on above: Performed By: #### L FT3, FERR3, HEMDF, DDI2, ICA, LDH3, BMP3M, MG3, CRP2, PHOS3 ####[address] MCHC 31.5 % Low 32.0-36.0 [facility] Comment on above: Performed By: #### L FT3, FERR3, HEMDF, DDI2, ICA, LDH3, BMP3M, MG3, CRP2, PHOS3 ####[address] MCV (RBC) [Entitic vol] 69.9 fL Low 79.0-98.0 [facility] Comment on above: Performed By: #### L FT3, FERR3, HEMDF, DDI2, ICA, LDH3, BMP3M, MG3, CRP2, PHOS3 ####[address] Monocytes (Bld) [#/Vol] 0.6 10*3/uL Normal 0.0-0.8 [facility] Comment on above: Performed By: #### L FT3, FERR3, HEMDF, DDI2, ICA, LDH3, BMP3M, MG3, CRP2, PHOS3 ####[address] Monocytes/100 WBC (Bld) 8.0 % Normal 2.0-10.0 [facility] Comment on above: Performed By: #### L FT3, FERR3, HEMDF, DDI2, ICA, LDH3, BMP3M, MG3, CRP2, PHOS3 ####[address] Platelet mean volume (Bld) [Entitic vol] 8.2 fL Normal 7.4-10.4 [facility] Comment on above: Performed By: #### L FT3, FERR3, HEMDF, DDI2, ICA, LDH3, BMP3M, MG3, CRP2, PHOS3 ####[address] Platelets (Bld) [#/Vol] 213 10*3/uL Normal 140-440 [facility] Comment on above: Performed By: #### L FT3, FERR3, HEMDF, DDI2, ICA, LDH3, BMP3M, MG3, CRP2, PHOS3 ####[address] RBC (Bld) [#/Vol] 4.55 10*6/uL Normal 3.80-5.20 [facility] Comment on above: Performed By: #### L FT3, FERR3, HEMDF, DDI2, ICA, LDH3, BMP3M, MG3, CRP2, PHOS3 ####[address] WBC (Bld) [#/Vol] 7.0 10*3/uL Normal 3.6-10.7 [facility] Comment on above: Performed By: #### L FT3, FERR3, HEMDF, DDI2, ICA, LDH3, BMP3M, MG3, CRP2, PHOS3 ####[address] Hepatic Functionon 1 ALT [Catalytic activity/Vol] 126 U/L High 0-34 [facility] Comment on above: Result Comment: The ALT test is performed by an updated assay method.Please note that the reference intervals have beenchanged and are now sex specific. Performed By: #### L FT3, FERR3, HEMDF, DDI2, ICA, LDH3, BMP3M, MG3, CRP2, PHOS3 ####[address] [place], [place] ALP [Catalytic activity/Vol] 75 U/L Normal 38-126 [facility] Comment on above: Performed By: #### L FT3, FERR3, HEMDF, DDI2, ICA, LDH3, BMP3M, MG3, CRP2, PHOS3 ####[address] [place], [place] AST [Catalytic activity/Vol] 86 U/L High 15-46 [facility] Comment on above: Performed By: #### L FT3, FERR3, HEMDF, DDI2, ICA, LDH3, BMP3M, MG3, CRP2, PHOS3 ####[address] Bilirubin [Mass/Vol] 0.3 mg/dL Normal 0.2-1.3 [facility] Comment on above: Performed By: #### L FT3, FERR3, HEMDF, DDI2, ICA, LDH3, BMP3M, MG3, CRP2, PHOS3 ####[address] [place], [place] Bilirubin.indirect [Mass/Vol] 0.0 mg/dL Normal 0.0-0.3 [facility] Comment on above: Performed By: #### L FT3, FERR3, HEMDF, DDI2, ICA, LDH3, BMP3M, MG3, CRP2, PHOS3 ####[address] [place], [place] Protein [Mass/Vol] 5.9 g/dL Low 6.3-8.2 [facility] Comment on above: Performed By: #### L FT3, FERR3, HEMDF, DDI2, ICA, LDH3, BMP3M, MG3, CRP2, PHOS3 ####[address] [place], [place] Albumin [Mass/Vol] 2.9 g/dL Low 3.5-5.0 [facility] Comment on above: Performed By: #### L FT3, FERR3, HEMDF, DDI2, ICA, LDH3, BMP3M, MG3, CRP2, PHOS3 ####[address] LDHon 06-08-2021 LDH 291 U/L High 120-246 [facility] Comment on above: Performed By: #### L FT3, FERR3, HEMDF, DDI2, ICA, LDH3, BMP3M, MG3, CRP2, PHOS3 ####[address] Magnesiumon 06-08-2021 Magnesium [Mass/Vol] 2.4 mg/dL High 1.6-2.3 [facility] Comment on above: Performed By: #### L FT3, FERR3, HEMDF, DDI2, ICA, LDH3, BMP3M, MG3, CRP2, PHOS3 ####[address] Phosphoruson 06-08-2021 Phosphate [Mass/Vol] 4.3 mg/dL Normal 2.5-4.5 [facility] Comment on above: Performed By: #### L FT3, FERR3, HEMDF, DDI2, ICA, LDH3, BMP3M, MG3, CRP2, PHOS3 ####[address] Procalcitoninon 06-08-2021 Procalcitonin 0.06 ng/mL Normal 0.00-0.09 [facility] Comment on above: Performed By: #### P OLESYA ####[address] Interpretation See Below Normal [facility] Comment on above: Result Comment: PCT <0.50 = Low risk of severe sepsis and/or septic shock.PCT >2.00 = High risk of severe sepsis and/or septic shock. Performed By: #### P OLESYA ####[address] Procalcitonin 0.07 ng/mL Normal 0.00-0.09 [facility] Comment on above: Performed By: #### D DI2, MG3, HEMDF, PHOS3, ICA, BMP3M, CRP2, LDH3, LFT3, FERR3, PCAL ####[address] [place], [place] Interpretation See Below Normal [facility] Comment on above: Result Comment: PCT <0.50 = Low risk of severe sepsis and/or septic shock.PCT >2.00 = High risk of severe sepsis and/or septic shock. Performed By: #### D DI2, MG3, HEMDF, PHOS3, ICA, BMP3M, CRP2, LDH3, LFT3, FERR3, PCAL ####[address] STAIN GRAMon 06-08-2021 STAIN GRAM STAIN GRAM --> Statu s: F Many polymorphonuclear cells/lpf. No epithelial cells/lpf. Few yeast. No epithelial cells/lpf. Few yeast. Normal [facility] Comment on above: Performed By: #### C S/RE, S/GRM ####[address] [place], [place] VL Venous Duplex US Lower Ex t Bilateralon 06-08-2021 VL Venous Duplex US Lower Ext Bilateral Normal [facility] Arterial Blood Gaseson 06-07 CO2 [Moles/Vol] 32.6 mmol/L High 23.0-27.0 [facility] Comment on above: Performed By: #### A BG ####[address] [place], [place] HCO3 (Bld) [Moles/Vol] 31.1 mmol/L High 21.0-25.0 [facility] Comment on above: Performed By: #### A BG ####[address] [place], [place] Hemoglobin (Bld) [Mass/Vol] 11.1 g/dL Normal ScreenOnly [facility] Comment on above: Performed By: #### A BG ####[address] Oxygen (Bld) [Partial pressure] 72.8 mm[Hg] Low 80.0-100.0 [facility] Comment on above: Performed By: #### A BG ####[address] [place], [place] Oxygen saturation in Blood 93.2 % Low 95.0-100.0 [facility] Comment on above: Performed By: #### A BG ####[address] [place], [place] pCO2 47.1 mm[Hg] High 35.0-45.0 [facility] Comment on above: Performed By: #### A BG ####[address] [place], [place] pH 7.438 Normal 7.350-7.450 [facility] Comment on above: Performed By: #### A BG ####[address] [address] [place], [place] Std Base Excess 6.1 mmol/L High -3.0-3.0 [facility] Comment on above: Performed By: #### A BG ####[address] [place], [place] FIO2 No data Normal [facility] Comment on above: Performed By: #### A BG ####[address] [address] [place], [place] CO2 [Moles/Vol] 32.1 mmol/L High 23.0-27.0 [facility] Comment on above: Performed By: #### A BG ####[address] [place], [place] HCO3 (Bld) [Moles/Vol] 30.6 mmol/L High 21.0-25.0 [facility] Comment on above: Performed By: #### A BG ####[address] [place], [place] Hemoglobin (Bld) [Mass/Vol] 11.2 g/dL Normal ScreenOnly [facility] Comment on above: Performed By: #### A BG ####[address] [place], [place] Oxygen (Bld) [Partial pressure] 103.3 mm[Hg] High 80.0-100.0 [facility] Comment on above: Performed By: #### A BG ####[address] [place], [place] Oxygen saturation in Blood 96.9 % Normal 95.0-100.0 [facility] Comment on above: Performed By: #### A BG ####[address] [place], [place] pCO2 49.2 mm[Hg] High 35.0-45.0 [facility] Comment on above: Performed By: #### A BG ####[address] pH 7.411 Normal 7.350-7.450 [facility] Comment on above: Performed By: #### A BG ####[address] Std Base Excess 5.1 mmol/L High -3.0-3.0 [facility] Comment on above: Performed By: #### A BG ####[address] FIO2 35% Normal [facility] Comment on above: Performed By: #### A BG ####[address] [place], [place] CO2 [Moles/Vol] 30.4 mmol/L High 23.0-27.0 [facility] Comment on above: Performed By: #### A BG ####[address] [place], [place] HCO3 (Bld) [Moles/Vol] 28.9 mmol/L High 21.0-25.0 [facility] Comment on above: Performed By: #### A BG ####[address] Hemoglobin (Bld) [Mass/Vol] 11.0 g/dL Normal ScreenOnly [facility] Comment on above: Performed By: #### A BG ####[address] [place], [place] Oxygen (Bld) [Partial pressure] 98.0 mm[Hg] Normal 80.0-100.0 [facility] Comment on above: Performed By: #### A BG ####[address] [place], [place] Oxygen saturation in Blood 97.0 % Normal 95.0-100.0 [facility] Comment on above: Performed By: #### A BG ####[address] [place], [place] pCO2 51.3 mm[Hg] High 35.0-45.0 [facility] Comment on above: Performed By: #### A BG ####[address] pH 7.368 Normal 7.350-7.450 [facility] Comment on above: Performed By: #### A BG ####[address] [place], [place] Std Base Excess 2.8 mmol/L Normal -3.0-3.0 [facility] Comment on above: Performed By: #### A BG ####[address] FIO2 No data Normal [facility] Comment on above: Performed By: #### A BG ####[address] [place], [place] CO2 [Moles/Vol] 30.2 mmol/L High 23.0-27.0 [facility] Comment on above: Performed By: #### A BG ####[address] [place], [place] HCO3 (Bld) [Moles/Vol] 28.7 mmol/L High 21.0-25.0 [facility] Comment on above: Performed By: #### A BG ####[address] [place], [place] Hemoglobin (Bld) [Mass/Vol] 10.8 g/dL Normal ScreenOnly [facility] Comment on above: Performed By: #### A BG ####[address] [place], [place] Oxygen (Bld) [Partial pressure] 112.4 mm[Hg] High 80.0-100.0 [facility] Comment on above: Performed By: #### A BG ####[address] Oxygen saturation in Blood 97.5 % Normal 95.0-100.0 [facility] Comment on above: Performed By: #### A BG ####[address] [place], [place] pCO2 47.0 mm[Hg] High 35.0-45.0 [facility] Comment on above: Performed By: #### A BG ####[address] pH 7.404 Normal 7.350-7.450 [facility] Comment on above: Performed By: #### A BG ####[address] Std Base Excess 3.4 mmol/L High -3.0-3.0 [facility] Comment on above: Performed By: #### A BG ####[address] [place], [place] FIO2 No data Normal [facility] Comment on above: Performed By: #### A BG ####[address] Basic Metabolic Panelon 07-0 Calcium [Mass/Vol] 8.2 mg/dL Low 8.4-10.4 [facility] Comment on above: Performed By: #### D DI2, MG3, HEMDF, PHOS3, ICA, BMP3M, CRP2, LDH3, LFT3, FERR3, PCAL ####[address] [place], [place] Glucose [Mass/Vol] 109 mg/dL High 70-100 [facility] Comment on above: Performed By: #### D DI2, MG3, HEMDF, PHOS3, ICA, BMP3M, CRP2, LDH3, LFT3, FERR3, PCAL ####[address] [place], [place] Urea nitrogen [Mass/Vol] 53 mg/dL High 7-20 [facility] Comment on above: Performed By: #### D DI2, MG3, HEMDF, PHOS3, ICA, BMP3M, CRP2, LDH3, LFT3, FERR3, PCAL ####[address] [place], [place] Anion gap [Moles/Vol] 5 mmol/L Normal 3-13 [facility] Comment on above: Performed By: #### D DI2, MG3, HEMDF, PHOS3, ICA, BMP3M, CRP2, LDH3, LFT3, FERR3, PCAL ####[address] CO2 [Moles/Vol] 28 mmol/L Normal 22-30 [facility] Comment on above: Performed By: #### D DI2, MG3, HEMDF, PHOS3, ICA, BMP3M, CRP2, LDH3, LFT3, FERR3, PCAL ####[address] [place], [place] Creatinine [Mass/Vol] 0.95 mg/dL Normal 0.52-1.25 [facility] Comment on above: Performed By: #### D DI2, MG3, HEMDF, PHOS3, ICA, BMP3M, CRP2, LDH3, LFT3, FERR3, PCAL ####[address] [place], [place] GFR/1.73 sq M.predicted among blacks MDRD (S/P/Bld) [Vol rate/Area] 79.1 mL/min/{1.73_m2} Normal >60 [facility] Comment on above: Performed By: #### D DI2, MG3, HEMDF, PHOS3, ICA, BMP3M, CRP2, LDH3, LFT3, FERR3, PCAL ####[address] [place], [place] GFR/1.73 sq M.predicted among non-blacks MDRD (S/P/Bld) [Vol rate/Area] 68.2 mL/min/{1.73_m2} Normal >60 [facility] Comment on above: Result Comment: KDIG O guidelines provide the following GFR categories:Stage GFR(ml/min/1.73 m2) TermsG1 >=90 Normal or highG2 60-89 Mildly decreased*G3a 45-59 Mildly to moderately [id number] 30-44 Moderately to severely decreasedG4 15-29 Severely [...] ICA, BMP3M, CRP2, LDH3, LFT3, FERR3, PCAL ####[address] [place], [place] Potassium [Moles/Vol] 4.4 mmol/L Normal 3.5-5.1 [facility] Comment on above: Performed By: #### D DI2, MG3, HEMDF, PHOS3, ICA, BMP3M, CRP2, LDH3, LFT3, FERR3, PCAL ####[address] [place], [place] Chloride [Moles/Vol] 107 mmol/L Normal 98-107 [facility] Comment on above: Performed By: #### D DI2, MG3, HEMDF, PHOS3, ICA, BMP3M, CRP2, LDH3, LFT3, FERR3, PCAL ####[address] [place], [place] Sodium [Moles/Vol] 140 mmol/L Normal 135-145 [facility] Comment on above: Performed By: #### D DI2, MG3, HEMDF, PHOS3, ICA, BMP3M, CRP2, LDH3, LFT3, FERR3, PCAL ####[address] [place], [place] C-Reactive Proteinon 021 CRP [Mass/Vol] 29.6 mg/L High 0.0-6.0 [facility] Comment on above: Result Comment: . Performed By: #### D DI2, MG3, HEMDF, PHOS3, ICA, BMP3M, CRP2, LDH3, LFT3, FERR3, PCAL ####[address] [place], [place] CR Chest Portableon 06-07-20 CR Chest Portable Normal [facility] Calcium,Ionizedon 06-07-2021 Ionized Ca,Measured 4.40 mg/dL Normal 4.30-5.20 [facility] Comment on above: Performed By: #### D DI2, MG3, HEMDF, PHOS3, ICA, BMP3M, CRP2, LDH3, LFT3, FERR3, PCAL ####[address] [place], [place] pH, Ionized Calcium 7.39 Normal 7.31-7.46 [facility] Comment on above: Performed By: #### D DI2, MG3, HEMDF, PHOS3, ICA, BMP3M, CRP2, LDH3, LFT3, FERR3, PCAL ####[address] [place], [place] D-Dimer, Innovanceon 021 D-Dimer, Innovance 26.90 mg/L High <0.19-0.50 [facility] Comment on above: Result Comment: Inno carrington D-Dimer values of <0.50 mg/L FEU can be used incombination with a pre-test probability model (e.g. Well's)to exclude pulmonary embolism (PE) disease, as well as jodi in the diagnosis of deep vein thrombosis (DVT). Performed By: #### D DI2, MG3, HEMDF, PHOS3, ICA, BMP3M, CRP2, LDH3, LFT3, FERR3, PCAL ####[facility] [employer] [id number] [place] [address] Ferritinon 06-07-2021 Ferritin [Mass/Vol] 104 ng/mL Normal 8-252 [facility] Comment on above: Performed By: #### D DI2, MG3, HEMDF, PHOS3, ICA, BMP3M, CRP2, LDH3, LFT3, FERR3, PCAL ####[facility] [employer] [id number] [place] [address] Glucose,Bedsideon 06-07-2021 Glucose [Mass/Vol] 156 mg/dL High 70-100 [facility] Comment on above: Result Comment: Test performed by glucose meter. Results may be 10%-15% lowerthan serum/plasma values. (CLIA ID [id number]) Performed By: #### B GLU ####[facility] [employer] [id number] [place] [address] Glucose [Mass/Vol] 151 mg/dL High 70-100 [facility] Comment on above: Result Comment: Test performed by glucose meter. Results may be 10%-15% lowerthan serum/plasma values. (CLIA ID [id number]) Performed By: #### B GLU ####[facility] [employer] [id number] [place] [address] Glucose [Mass/Vol] 100 mg/dL Normal 70-100 [facility] Comment on above: Result Comment: Test performed by glucose meter. Results may be 10%-15% lowerthan serum/plasma values. (CLIA ID [id number]) Performed By: #### B GLU ####[facility] [employer] [id number] [place] [address] Glucose [Mass/Vol] 126 mg/dL High 70-100 [facility] Comment on above: Result Comment: Test performed by glucose meter. Results may be 10%-15% lowerthan serum/plasma values. (CLIA ID [id number]) Performed By: #### B GLU ####[address] Hemogram w/ Autodiffon 06-07 Abs Baso Cnt 0.0 10*3/uL Normal 0.0-0.2 [facility] Comment on above: Performed By: #### D DI2, MG3, HEMDF, PHOS3, ICA, BMP3M, CRP2, LDH3, LFT3, FERR3, PCAL ####[address] Abs Neutrophile Cnt 3.2 10*3/uL Normal 1.8-7.0 [facility] Comment on above: Performed By: #### D DI2, MG3, HEMDF, PHOS3, ICA, BMP3M, CRP2, LDH3, LFT3, FERR3, PCAL ####[address] Basophils/100 WBC (Bld) 0.5 % Normal 0.0-2.0 [facility] Comment on above: Performed By: #### D DI2, MG3, HEMDF, PHOS3, ICA, BMP3M, CRP2, LDH3, LFT3, FERR3, PCAL ####[address] Eosinophils (Bld) [#/Vol] 0.0 10*3/uL Normal 0.0-0.5 [facility] Comment on above: Performed By: #### D DI2, MG3, HEMDF, PHOS3, ICA, BMP3M, CRP2, LDH3, LFT3, FERR3, PCAL ####[address] Eosinophils/100 WBC (Bld) 0.5 % Low 1.0-6.0 [facility] Comment on above: Performed By: #### D DI2, MG3, HEMDF, PHOS3, ICA, BMP3M, CRP2, LDH3, LFT3, FERR3, PCAL ####[address] Erythrocyte distribution width (RBC) [Ratio] 21.1 % High 11.5-14.5 [facility] Comment on above: Performed By: #### D DI2, MG3, HEMDF, PHOS3, ICA, BMP3M, CRP2, LDH3, LFT3, FERR3, PCAL ####[address] Granulocytes/100 WBC (Bld) 72.5 % Normal 40.0-80.0 [facility] Comment on above: Performed By: #### D DI2, MG3, HEMDF, PHOS3, ICA, BMP3M, CRP2, LDH3, LFT3, FERR3, PCAL ####[address] Hematocrit (Bld) [Volume fraction] 33.3 % Low 35.0-47.0 [facility] Comment on above: Performed By: #### D DI2, MG3, HEMDF, PHOS3, ICA, BMP3M, CRP2, LDH3, LFT3, FERR3, PCAL ####[address] Hemoglobin (Bld) [Mass/Vol] 10.6 g/dL Low 11.7-16.0 [facility] Comment on above: Performed By: #### D DI2, MG3, HEMDF, PHOS3, ICA, BMP3M, CRP2, LDH3, LFT3, FERR3, PCAL ####[address] Lymphocytes (Bld) [#/Vol] 0.7 10*3/uL Low 1.0-4.3 [facility] Comment on above: Performed By: #### D DI2, MG3, HEMDF, PHOS3, ICA, BMP3M, CRP2, LDH3, LFT3, FERR3, PCAL ####[address] [place] Lymphocytes/100 WBC (Bld) 16.0 % Low 20.0-40.0 [facility] Comment on above: Performed By: #### D DI2, MG3, HEMDF, PHOS3, ICA, BMP3M, CRP2, LDH3, LFT3, FERR3, PCAL ####[address] [place], [place] MCH (RBC) [Entitic mass] 22.6 pg Low 26.0-34.0 [facility] Comment on above: Performed By: #### D DI2, MG3, HEMDF, PHOS3, ICA, BMP3M, CRP2, LDH3, LFT3, FERR3, PCAL ####[address] [place], [place] MCHC 31.7 % Low 32.0-36.0 [facility] Comment on above: Performed By: #### D DI2, MG3, HEMDF, PHOS3, ICA, BMP3M, CRP2, LDH3, LFT3, FERR3, PCAL ####[address] MCV (RBC) [Entitic vol] 71.3 fL Low 79.0-98.0 [facility] Comment on above: Performed By: #### D DI2, MG3, HEMDF, PHOS3, ICA, BMP3M, CRP2, LDH3, LFT3, FERR3, PCAL ####[address] Monocytes (Bld) [#/Vol] 0.5 10*3/uL Normal 0.0-0.8 [facility] Comment on above: Performed By: #### D DI2, MG3, HEMDF, PHOS3, ICA, BMP3M, CRP2, LDH3, LFT3, FERR3, PCAL ####[address] Monocytes/100 WBC (Bld) 10.5 % High 2.0-10.0 [facility] Comment on above: Performed By: #### D DI2, MG3, HEMDF, PHOS3, ICA, BMP3M, CRP2, LDH3, LFT3, FERR3, PCAL ####[address] [place], [place] Platelet mean volume (Bld) [Entitic vol] 8.3 fL Normal 7.4-10.4 [facility] Comment on above: Performed By: #### D DI2, MG3, HEMDF, PHOS3, ICA, BMP3M, CRP2, LDH3, LFT3, FERR3, PCAL ####[address] [place], [place] Platelets (Bld) [#/Vol] 194 10*3/uL Normal 140-440 [facility] Comment on above: Performed By: #### D DI2, MG3, HEMDF, PHOS3, ICA, BMP3M, CRP2, LDH3, LFT3, FERR3, PCAL ####[address] RBC (Bld) [#/Vol] 4.67 10*6/uL Normal 3.80-5.20 [facility] Comment on above: Performed By: #### D DI2, MG3, HEMDF, PHOS3, ICA, BMP3M, CRP2, LDH3, LFT3, FERR3, PCAL ####[address] WBC (Bld) [#/Vol] 4.5 10*3/uL Normal 3.6-10.7 [facility] Comment on above: Performed By: #### D DI2, MG3, HEMDF, PHOS3, ICA, BMP3M, CRP2, LDH3, LFT3, FERR3, PCAL ####[address] [place], [place] Hepatic Functionon 1 ALP [Catalytic activity/Vol] 82 U/L Normal 38-126 [facility] Comment on above: Performed By: #### D DI2, MG3, HEMDF, PHOS3, ICA, BMP3M, CRP2, LDH3, LFT3, FERR3, PCAL ####[address] [place], [place] ALT [Catalytic activity/Vol] 138 U/L High 0-34 [facility] Comment on above: Result Comment: The ALT test is performed by an updated assay method.Please note that the reference intervals have beenchanged and are now sex specific. Performed By: #### D DI2, MG3, HEMDF, PHOS3, ICA, BMP3M, CRP2, LDH3, LFT3, FERR3, PCAL ####[address] AST [Catalytic activity/Vol] 119 U/L High 15-46 [facility] Comment on above: Performed By: #### D DI2, MG3, HEMDF, PHOS3, ICA, BMP3M, CRP2, LDH3, LFT3, FERR3, PCAL ####[address] Protein [Mass/Vol] 6.0 g/dL Low 6.3-8.2 [facility] Comment on above: Performed By: #### D DI2, MG3, HEMDF, PHOS3, ICA, BMP3M, CRP2, LDH3, LFT3, FERR3, PCAL ####[address] Bilirubin [Mass/Vol] 0.3 mg/dL Normal 0.2-1.3 [facility] Comment on above: Performed By: #### D DI2, MG3, HEMDF, PHOS3, ICA, BMP3M, CRP2, LDH3, LFT3, FERR3, PCAL ####[address] [place], [place] Bilirubin.indirect [Mass/Vol] 0.0 mg/dL Normal 0.0-0.3 [facility] Comment on above: Performed By: #### D DI2, MG3, HEMDF, PHOS3, ICA, BMP3M, CRP2, LDH3, LFT3, FERR3, PCAL ####[address] [place] Albumin [Mass/Vol] 2.9 g/dL Low 3.5-5.0 [facility] Comment on above: Performed By: #### D DI2, MG3, HEMDF, PHOS3, ICA, BMP3M, CRP2, LDH3, LFT3, FERR3, PCAL ####[address] [place], [place] Interleukin 6on 06-07-2021 Interleukin 6 54.6 pg/mL High <=2.0 [facility] Comment on above: Result Comment: INTE RPRETIVE INFORMATION: CytokinesResults are used to understand the pathophysiology of immune,infectious, or inflammatory disorders, or may be used for researchpurposes.This test was developed and its performance characteristicsdetermined by [facility]. It has not been cleared orapproved by the [place] Food and Drug Administration. This test wasperformed in a CLIA certified laboratory and is intended forclinical purposes.Performed By: [facility] [place] [address] [id number] Director: Merari Garcia MD Performed By: #### H BSAG, LFT3, HEMDF, HIV4, TROPN, MG3, BMP3M, DDI2, PHOS3, CRP2, HEPC, ICA, FERR3, LDH3 ####[address] #### IL6O, HBCAO ####The performing lab is in the report. LDHon 06-07-2021 LDH 370 U/L High 120-246 [facility] Comment on above: Performed By: #### D DI2, MG3, HEMDF, PHOS3, ICA, BMP3M, CRP2, LDH3, LFT3, FERR3, PCAL ####[address] [place], [place] Magnesiumon 06-07-2021 Magnesium [Mass/Vol] 2.5 mg/dL High 1.6-2.3 [facility] Comment on above: Performed By: #### D DI2, MG3, HEMDF, PHOS3, ICA, BMP3M, CRP2, LDH3, LFT3, FERR3, PCAL ####[address] [place] [address] Phosphoruson 06-07-2021 Phosphate [Mass/Vol] 4.0 mg/dL Normal 2.5-4.5 [facility] Comment on above: Performed By: #### D DI2, MG3, HEMDF, PHOS3, ICA, BMP3M, CRP2, LDH3, LFT3, FERR3, PCAL ####[address] [place] [address] Troponin Ion 06-07-2021 Troponin I.cardiac [Mass/Vol] ng/mL Normal 0.000-0.034 [facility] Comment on above: Result Comment: . Performed By: #### T ROPN ####[address] [address] Arterial Blood Gaseson 06-06 CO2 [Moles/Vol] 29.3 mmol/L High 23.0-27.0 [facility] Comment on above: Performed By: #### A BG ####[address] [address] HCO3 (Bld) [Moles/Vol] 27.9 mmol/L High 21.0-25.0 [facility] Comment on above: Performed By: #### A BG ####[address] [place] [address] Hemoglobin (Bld) [Mass/Vol] 10.7 g/dL Normal ScreenOnly [facility] Comment on above: Performed By: #### A BG ####[address] [address] Oxygen (Bld) [Partial pressure] 86.6 mm[Hg] Normal 80.0-100.0 [facility] Comment on above: Performed By: #### A BG ####[address] [address] Oxygen saturation in Blood 96.2 % Normal 95.0-100.0 [facility] Comment on above: Performed By: #### A BG ####[address] [place], [place] pCO2 46.9 mm[Hg] High 35.0-45.0 [facility] Comment on above: Performed By: #### A BG ####[address] [place], [place] pH 7.392 Normal 7.350-7.450 [facility] Comment on above: Performed By: #### A BG ####[address] [place], [place] Std Base Excess 2.5 mmol/L Normal -3.0-3.0 [facility] Comment on above: Performed By: #### A BG ####[address] [place], [place] FIO2 .50 Normal [facility] Comment on above: Performed By: #### A BG ####[address] [place], [place] CO2 [Moles/Vol] 28.2 mmol/L High 23.0-27.0 [facility] Comment on above: Performed By: #### A BG ####[address] [place], [place] HCO3 (Bld) [Moles/Vol] 26.8 mmol/L High 21.0-25.0 [facility] Comment on above: Performed By: #### A BG ####[address] [place], [place] Hemoglobin (Bld) [Mass/Vol] 11.1 g/dL Normal [facility] Comment on above: Performed By: #### A BG ####[address] [place], [place] Oxygen (Bld) [Partial pressure] 68.7 mm[Hg] Low 80.0-100.0 [facility] Comment on above: Performed By: #### A BG ####[address] [place], [place] Oxygen saturation in Blood 92.0 % Low 95.0-100.0 [facility] Comment on above: Performed By: #### A BG ####[address] [place], [place] pCO2 46.7 mm[Hg] High 35.0-45.0 [facility] Comment on above: Performed By: #### A BG ####[address] [place], [place] pH 7.376 Normal 7.350-7.450 [facility] Comment on above: Performed By: #### A BG ####[address] [place], [place] Std Base Excess 1.2 mmol/L Normal -3.0-3.0 [facility] Comment on above: Performed By: #### A BG ####[address] [address] [place], [place] FIO2 .50 Normal [facility] Comment on above: Performed By: #### A BG ####[address] [place], [place] CO2 [Moles/Vol] 30.7 mmol/L High 23.0-27.0 [facility] Comment on above: Performed By: #### A BG ####[address] [place], [place] HCO3 (Bld) [Moles/Vol] 29.2 mmol/L High 21.0-25.0 [facility] Comment on above: Performed By: #### A BG ####[address] [place], [place] Hemoglobin (Bld) [Mass/Vol] 11.5 g/dL Normal [facility]Only [facility] Comment on above: Performed By: #### A BG ####[address] [place], [place] Oxygen (Bld) [Partial pressure] 130.0 mm[Hg] High 80.0-100.0 [facility] Comment on above: Performed By: #### A BG ####[address] [place], [place] Oxygen saturation in Blood 98.0 % Normal 95.0-100.0 [facility] Comment on above: Performed By: #### A BG ####[address] [place], [place] pCO2 49.6 mm[Hg] High 35.0-45.0 [facility] Comment on above: Performed By: #### A BG ####[address] [place], [place] pH 7.388 Normal 7.350-7.450 [facility] Comment on above: Performed By: #### A BG ####[address] [place], [place] Std Base Excess 3.5 mmol/L High -3.0-3.0 [facility] Comment on above: Performed By: #### A BG ####[address] [place], [place] FIO2 60% Normal [facility] Comment on above: Performed By: #### A BG ####[address] Basic Metabolic Panelon 07-0 Calcium [Mass/Vol] 8.2 mg/dL Low 8.4-10.4 [facility] Comment on above: Performed By: #### M G3, TROPN, BMP3M, ICA, LDH3, HEMDF, CRP2, DDI2, FERR3, LFT3, PHOS3 ####[address] [place], [place] Glucose [Mass/Vol] 130 mg/dL High 70-100 [facility] Comment on above: Performed By: #### M G3, TROPN, BMP3M, ICA, LDH3, HEMDF, CRP2, DDI2, FERR3, LFT3, PHOS3 ####[address] [place], [place] Anion gap [Moles/Vol] 8 mmol/L Normal 3-13 [facility] Comment on above: Performed By: #### M G3, TROPN, BMP3M, ICA, LDH3, HEMDF, CRP2, DDI2, FERR3, LFT3, PHOS3 ####[address] CO2 [Moles/Vol] 22 mmol/L Normal 22-30 [facility] Comment on above: Performed By: #### M G3, TROPN, BMP3M, ICA, LDH3, HEMDF, CRP2, DDI2, FERR3, LFT3, PHOS3 ####[address] Creatinine [Mass/Vol] 0.99 mg/dL Normal 0.52-1.25 [facility] Comment on above: Performed By: #### M G3, TROPN, BMP3M, ICA, LDH3, HEMDF, CRP2, DDI2, FERR3, LFT3, PHOS3 ####[address] GFR/1.73 sq M.predicted among blacks MDRD (S/P/Bld) [Vol rate/Area] 75.2 mL/min/{1.73_m2} Normal >60 [facility] Comment on above: Performed By: #### M G3, TROPN, BMP3M, ICA, LDH3, HEMDF, CRP2, DDI2, FERR3, LFT3, PHOS3 ####[address] GFR/1.73 sq M.predicted among non-blacks MDRD (S/P/Bld) [Vol rate/Area] 64.9 mL/min/{1.73_m2} Normal >60 [facility] Comment on above: Result Comment: KDIG O guidelines provide the following GFR categories:Stage GFR(ml/min/1.73 m2) TermsG1 >=90 Normal or highG2 60-89 Mildly decreased*G3a 45-59 Mildly to moderately [id number] 30-44 Moderately to severely decreasedG4 15-29 Severely [...] LDH3, HEMDF, CRP2, DDI2, FERR3, LFT3, PHOS3 ####[address] [place] [address] Urea nitrogen [Mass/Vol] 40 mg/dL High 7-20 [facility] Comment on above: Performed By: #### M G3, TROPN, BMP3M, ICA, LDH3, HEMDF, CRP2, DDI2, FERR3, LFT3, PHOS3 ####[address] [address] Potassium [Moles/Vol] 4.5 mmol/L Normal 3.5-5.1 [facility] Comment on above: Performed By: #### M G3, TROPN, BMP3M, ICA, LDH3, HEMDF, CRP2, DDI2, FERR3, LFT3, PHOS3 ####[address] [address] Chloride [Moles/Vol] 107 mmol/L Normal 98-107 [facility] Comment on above: Performed By: #### M G3, TROPN, BMP3M, ICA, LDH3, HEMDF, CRP2, DDI2, FERR3, LFT3, PHOS3 ####[address] [place] [address] Sodium [Moles/Vol] 138 mmol/L Normal 135-145 [facility] Comment on above: Performed By: #### M G3, TROPN, BMP3M, ICA, LDH3, HEMDF, CRP2, DDI2, FERR3, LFT3, PHOS3 ####[address] [place] [address] C-Reactive Proteinon 021 CRP [Mass/Vol] 54.6 mg/L High 0.0-6.0 [facility] Comment on above: Result Comment: . Performed By: #### M G3, TROPN, BMP3M, ICA, LDH3, HEMDF, CRP2, DDI2, FERR3, LFT3, PHOS3 ####[address] [place] [address] CR Chest Portableon 06-06-20 21 CR Chest Portable Normal [facility] CULT./ST. RESPIRATORYon 0 CULT./ST. RESPIRATORY CULT./ST. RESPIRAT ORY --> Status: F Few normal respiratory pretty. Normal [facility] Comment on above: Performed By: #### S /GRM, CS/RE ####[address] [place] [address] Calcium,Ionizedon 06-06-2021 Ionized Ca,Measured 4.20 mg/dL Low 4.30-5.20 [facility] Comment on above: Performed By: #### M G3, TROPN, BMP3M, ICA, LDH3, HEMDF, CRP2, DDI2, FERR3, LFT3, PHOS3 ####[facility] [employer] [id number] [place] [address] pH, Ionized Calcium 7.46 Normal 7.31-7.46 [facility] Comment on above: Performed By: #### M G3, TROPN, BMP3M, ICA, LDH3, HEMDF, CRP2, DDI2, FERR3, LFT3, PHOS3 ####[address] [place] [address] D-Dimer, Innovanceon 021 D-Dimer, Innovance 13.81 mg/L High <0.19-0.50 [facility] Comment on above: Result Comment: Inno carrington D-Dimer values of <0.50 mg/L FEU can be used incombination with a pre-test probability model (e.g. Well's)to exclude pulmonary embolism (PE) disease, as well as jodi in the diagnosis of deep vein thrombosis (DVT). Performed By: #### M G3, TROPN, BMP3M, ICA, LDH3, HEMDF, CRP2, DDI2, FERR3, LFT3, PHOS3 ####[employer] [id number] [place] [address] Ferritinon 06-06-2021 Ferritin [Mass/Vol] 138 ng/mL Normal 8-252 [facility] Comment on above: Performed By: #### M G3, TROPN, BMP3M, ICA, LDH3, HEMDF, CRP2, DDI2, FERR3, LFT3, PHOS3 ####[facility] [employer] [id number] [place] [address] Glucose,Bedsideon 06-06-2021 Glucose [Mass/Vol] 145 mg/dL High 70-100 [facility] Comment on above: Result Comment: Test performed by glucose meter. Results may be 10%-15% lowerthan serum/plasma values. (CLIA ID [id number]) Performed By: #### B GLU ####[facility] [employer] [id number] [facility] [place] [place] [address] Glucose [Mass/Vol] 159 mg/dL High 70-100 [facility] Comment on above: Result Comment: Test performed by glucose meter. Results may be 10%-15% lowerthan serum/plasma values. (CLIA ID [id number]) Performed By: #### B GLU ####[id number] [facility] [place] [address] Glucose [Mass/Vol] 126 mg/dL High 70-100 [facility] Comment on above: Result Comment: Test performed by glucose meter. Results may be 10%-15% lowerthan serum/plasma values. (CLIA ID [id number]) Performed By: #### B GLU ####[id number] [facility] [place] [address] Glucose [Mass/Vol] 148 mg/dL High 70-100 [facility] Comment on above: Result Comment: Test performed by glucose meter. Results may be 10%-15% lowerthan serum/plasma values. (CLIA ID [id number]) Performed By: #### B GLU ####[address] Hemogram w/ Autodiffon 06-06 Abs Baso Cnt 0.0 10*3/uL Normal 0.0-0.2 [facility] Comment on above: Performed By: #### M G3, TROPN, BMP3M, ICA, LDH3, HEMDF, CRP2, DDI2, FERR3, LFT3, PHOS3 ####[address] Abs Neutrophile Cnt 2.9 10*3/uL Normal 1.8-7.0 [facility] Comment on above: Performed By: #### M G3, TROPN, BMP3M, ICA, LDH3, HEMDF, CRP2, DDI2, FERR3, LFT3, PHOS3 ####[address] Basophils/100 WBC (Bld) 0.4 % Normal 0.0-2.0 [facility] Comment on above: Performed By: #### M G3, TROPN, BMP3M, ICA, LDH3, HEMDF, CRP2, DDI2, FERR3, LFT3, PHOS3 ####[address] Eosinophils (Bld) [#/Vol] 0.0 10*3/uL Normal 0.0-0.5 [facility] Comment on above: Performed By: #### M G3, TROPN, BMP3M, ICA, LDH3, HEMDF, CRP2, DDI2, FERR3, LFT3, PHOS3 ####[address] Eosinophils/100 WBC (Bld) 0.1 % Low 1.0-6.0 [facility] Comment on above: Performed By: #### M G3, TROPN, BMP3M, ICA, LDH3, HEMDF, CRP2, DDI2, FERR3, LFT3, PHOS3 ####[address] Erythrocyte distribution width (RBC) [Ratio] 20.1 % High 11.5-14.5 [facility] Comment on above: Performed By: #### M G3, TROPN, BMP3M, ICA, LDH3, HEMDF, CRP2, DDI2, FERR3, LFT3, PHOS3 ####[address] Granulocytes/100 WBC (Bld) 78.1 % Normal 40.0-80.0 [facility] Comment on above: Performed By: #### M G3, TROPN, BMP3M, ICA, LDH3, HEMDF, CRP2, DDI2, FERR3, LFT3, PHOS3 ####[address] Hematocrit (Bld) [Volume fraction] 33.8 % Low 35.0-47.0 [facility] Comment on above: Performed By: #### M G3, TROPN, BMP3M, ICA, LDH3, HEMDF, CRP2, DDI2, FERR3, LFT3, PHOS3 ####[address] Hemoglobin (Bld) [Mass/Vol] 10.6 g/dL Low 11.7-16.0 [facility] Comment on above: Performed By: #### M G3, TROPN, BMP3M, ICA, LDH3, HEMDF, CRP2, DDI2, FERR3, LFT3, PHOS3 ####[address] Lymphocytes (Bld) [#/Vol] 0.4 10*3/uL Low 1.0-4.3 [facility] Comment on above: Performed By: #### M G3, TROPN, BMP3M, ICA, LDH3, HEMDF, CRP2, DDI2, FERR3, LFT3, PHOS3 ####[address] Lymphocytes/100 WBC (Bld) 11.1 % Low 20.0-40.0 [facility] Comment on above: Performed By: #### M G3, TROPN, BMP3M, ICA, LDH3, HEMDF, CRP2, DDI2, FERR3, LFT3, PHOS3 ####[address] [place], [place] MCH (RBC) [Entitic mass] 22.3 pg Low 26.0-34.0 [facility] Comment on above: Performed By: #### M G3, TROPN, BMP3M, ICA, LDH3, HEMDF, CRP2, DDI2, FERR3, LFT3, PHOS3 ####[address] [place], [place] MCHC 31.4 % Low 32.0-36.0 [facility] Comment on above: Performed By: #### M G3, TROPN, BMP3M, ICA, LDH3, HEMDF, CRP2, DDI2, FERR3, LFT3, PHOS3 ####[address] [place], [place] MCV (RBC) [Entitic vol] 71.1 fL Low 79.0-98.0 [facility] Comment on above: Performed By: #### M G3, TROPN, BMP3M, ICA, LDH3, HEMDF, CRP2, DDI2, FERR3, LFT3, PHOS3 ####[address] [place], [place] Monocytes (Bld) [#/Vol] 0.4 10*3/uL Normal 0.0-0.8 [facility] Comment on above: Performed By: #### M G3, TROPN, BMP3M, ICA, LDH3, HEMDF, CRP2, DDI2, FERR3, LFT3, PHOS3 ####[address] [place], [place] Monocytes/100 WBC (Bld) 10.3 % High 2.0-10.0 [facility] Comment on above: Performed By: #### M G3, TROPN, BMP3M, ICA, LDH3, HEMDF, CRP2, DDI2, FERR3, LFT3, PHOS3 ####[address] [place], [place] Platelet mean volume (Bld) [Entitic vol] 8.5 fL Normal 7.4-10.4 [facility] Comment on above: Performed By: #### M G3, TROPN, BMP3M, ICA, LDH3, HEMDF, CRP2, DDI2, FERR3, LFT3, PHOS3 ####[address] [place], [place] Platelets (Bld) [#/Vol] 176 10*3/uL Normal 140-440 [facility] Comment on above: Performed By: #### M G3, TROPN, BMP3M, ICA, LDH3, HEMDF, CRP2, DDI2, FERR3, LFT3, PHOS3 ####[address] [place], [place] RBC (Bld) [#/Vol] 4.75 10*6/uL Normal 3.80-5.20 [facility] Comment on above: Performed By: #### M G3, TROPN, BMP3M, ICA, LDH3, HEMDF, CRP2, DDI2, FERR3, LFT3, PHOS3 ####[address] [place], [place] WBC (Bld) [#/Vol] 3.7 10*3/uL Normal 3.6-10.7 [facility] Comment on above: Performed By: #### M G3, TROPN, BMP3M, ICA, LDH3, HEMDF, CRP2, DDI2, FERR3, LFT3, PHOS3 ####[address] [place], [place] Hep B Core Ab,Totalon 2020 Hep B Core Ab,Total Negative Normal Negative [facility] Comment on above: Result Comment: INTE RPRETIVE INFORMATION: Hepatitis B Core Ab (Total)This assay should not be used for blood donor screening,associated re-entry protocols, or for screening Human Cells,Tissues and Cellular and Tissue-Based Products (HCT/P).Performed by [facility],[address] [place] [id number] ehb.[employer], Merari Garcia MD - Lab. Director Performed By: #### H BSAG, LFT3, HEMDF, HIV4, TROPN, MG3, BMP3M, DDI2, PHOS3, CRP2, HEPC, ICA, FERR3, LDH3 ####[address] #### IL6O, HBCAO ####The performing lab is in the report. Hepatic Functionon 1 ALT [Catalytic activity/Vol] 70 U/L High 0-34 [facility] Comment on above: Result Comment: The ALT test is performed by an updated assay method.Please note that the reference intervals have beenchanged and are now sex specific. Performed By: #### M G3, TROPN, BMP3M, ICA, LDH3, HEMDF, CRP2, DDI2, FERR3, LFT3, PHOS3 ####[address] [place], [place] ALP [Catalytic activity/Vol] 78 U/L Normal 38-126 [facility] Comment on above: Performed By: #### M G3, TROPN, BMP3M, ICA, LDH3, HEMDF, CRP2, DDI2, FERR3, LFT3, PHOS3 ####[address] AST [Catalytic activity/Vol] 87 U/L High 15-46 [facility] Comment on above: Performed By: #### M G3, TROPN, BMP3M, ICA, LDH3, HEMDF, CRP2, DDI2, FERR3, LFT3, PHOS3 ####[address] Bilirubin [Mass/Vol] 0.3 mg/dL Normal 0.2-1.3 [facility] Comment on above: Performed By: #### M G3, TROPN, BMP3M, ICA, LDH3, HEMDF, CRP2, DDI2, FERR3, LFT3, PHOS3 ####[address] Bilirubin.indirect [Mass/Vol] 0.0 mg/dL Normal 0.0-0.3 [facility] Comment on above: Performed By: #### M G3, TROPN, BMP3M, ICA, LDH3, HEMDF, CRP2, DDI2, FERR3, LFT3, PHOS3 ####[address] [place] [address] Protein [Mass/Vol] 6.1 g/dL Low 6.3-8.2 [facility] Comment on above: Performed By: #### M G3, TROPN, BMP3M, ICA, LDH3, HEMDF, CRP2, DDI2, FERR3, LFT3, PHOS3 ####[address] [place] [address] Albumin [Mass/Vol] 2.9 g/dL Low 3.5-5.0 [facility] Comment on above: Performed By: #### M G3, TROPN, BMP3M, ICA, LDH3, HEMDF, CRP2, DDI2, FERR3, LFT3, PHOS3 ####[address] [place] [address] LDHon 06-06-2021 LDH 408 U/L High 120-246 [facility] Comment on above: Performed By: #### M G3, TROPN, BMP3M, ICA, LDH3, HEMDF, CRP2, DDI2, FERR3, LFT3, PHOS3 ####[address] [place] [address] Magnesiumon 06-06-2021 Magnesium [Mass/Vol] 2.5 mg/dL High 1.6-2.3 [facility] Comment on above: Performed By: #### M G3, TROPN, BMP3M, ICA, LDH3, HEMDF, CRP2, DDI2, FERR3, LFT3, PHOS3 ####[id number] [place] [address] Phosphoruson 06-06-2021 Phosphate [Mass/Vol] 4.4 mg/dL Normal 2.5-4.5 [facility] Comment on above: Performed By: #### M G3, TROPN, BMP3M, ICA, LDH3, HEMDF, CRP2, DDI2, FERR3, LFT3, PHOS3 ####[address] [place] [address] Troponin Ion 06-06-2021 Troponin I.cardiac [Mass/Vol] ng/mL Normal 0.000-0.034 [facility] Comment on above: Result Comment: . Performed By: #### M G3, TROPN, BMP3M, ICA, LDH3, HEMDF, CRP2, DDI2, FERR3, LFT3, PHOS3 ####[address] [place] [address] Arterial Blood Gaseson 06-05 CO2 [Moles/Vol] 30.7 mmol/L High 23.0-27.0 [facility] Comment on above: Performed By: #### A BG ####[address] [place], [place] HCO3 (Bld) [Moles/Vol] 29.2 mmol/L High 21.0-25.0 [facility] Comment on above: Performed By: #### A BG ####[address] [place], [place] Hemoglobin (Bld) [Mass/Vol] 11.2 g/dL Normal ScreenOnly [facility] Comment on above: Performed By: #### A BG ####[address] [place], [place] Oxygen (Bld) [Partial pressure] 97.0 mm[Hg] Normal 80.0-100.0 [facility] Comment on above: Performed By: #### A BG ####[address] Oxygen saturation in Blood 96.4 % Normal 95.0-100.0 [facility] Comment on above: Performed By: #### A BG ####[address] [facility] [place] pCO2 51.0 mm[Hg] High 35.0-45.0 [facility] Comment on above: Performed By: #### A BG ####[address] pH 7.375 Normal 7.350-7.450 [facility] Comment on above: Performed By: #### A BG ####[address] . [place], [place] Std Base Excess 3.2 mmol/L High -3.0-3.0 [facility] Comment on above: Performed By: #### A BG ####[address] [place], [place] FIO2 60% Normal [facility] Comment on above: Performed By: #### A BG ####[address] [place], [place] CO2 [Moles/Vol] 29.6 mmol/L High 23.0-27.0 [facility] Comment on above: Performed By: #### A BG ####[address] [place], [place] HCO3 (Bld) [Moles/Vol] 28.1 mmol/L High 21.0-25.0 [facility] Comment on above: Performed By: #### A BG ####[address] [place], [place] Hemoglobin (Bld) [Mass/Vol] 11.3 g/dL Normal ScreenOnly [facility] Comment on above: Performed By: #### A BG ####[address] [place], [place] Oxygen (Bld) [Partial pressure] 91.1 mm[Hg] Normal 80.0-100.0 [facility] Comment on above: Performed By: #### A BG ####[address] [place], [place] Oxygen saturation in Blood 96.0 % Normal 95.0-100.0 [facility] Comment on above: Performed By: #### A BG ####[address] [place], [place] pCO2 50.2 mm[Hg] High 35.0-45.0 [facility] Comment on above: Performed By: #### A BG ####[address] [place], [place] pH 7.366 Normal 7.350-7.450 [facility] Comment on above: Performed By: #### A BG ####[address] [place], [place] Std Base Excess 2.1 mmol/L Normal -3.0-3.0 [facility] Comment on above: Performed By: #### A BG ####[address] [place], [place] FIO2 60% Normal [facility] Comment on above: Performed By: #### A BG ####[address] CO2 [Moles/Vol] 28.7 mmol/L High 23.0-27.0 [facility] Comment on above: Performed By: #### A BG ####[address] HCO3 (Bld) [Moles/Vol] 27.1 mmol/L High 21.0-25.0 [facility] Comment on above: Performed By: #### A BG ####[address] [address] [place], [place] Hemoglobin (Bld) [Mass/Vol] 11.6 g/dL Normal ScreenOnly [facility] Comment on above: Performed By: #### A BG ####[address] [place], [place] Oxygen (Bld) [Partial pressure] 84.2 mm[Hg] Normal 80.0-100.0 [facility] Comment on above: Performed By: #### A BG ####[address] Oxygen saturation in Blood 95.7 % Normal 95.0-100.0 [facility] Comment on above: Performed By: #### A BG ####[address] pCO2 50.8 mm[Hg] High 35.0-45.0 [facility] Comment on above: Performed By: #### A BG ####[address] [place], [place] pH 7.345 Low 7.350-7.450 [facility] Comment on above: Performed By: #### A BG ####[address] [facility], [place] Std Base Excess 0.8 mmol/L Normal -3.0-3.0 [facility] Comment on above: Performed By: #### A BG ####[address] [facility] FIO2 60% Normal [facility] Comment on above: Performed By: #### A BG ####[address] [place], [place] CO2 [Moles/Vol] 28.9 mmol/L High 23.0-27.0 [facility] Comment on above: Performed By: #### A BG ####[address] [facility] HCO3 (Bld) [Moles/Vol] 27.4 mmol/L High 21.0-25.0 [facility] Comment on above: Performed By: #### A BG ####[address] [place], [place] Hemoglobin (Bld) [Mass/Vol] 11.6 g/dL Normal ScreenOnly [facility] Comment on above: Performed By: #### A BG ####[address] [facility], [place] Oxygen (Bld) [Partial pressure] 83.5 mm[Hg] Normal 80.0-100.0 [facility] Comment on above: Performed By: #### A BG ####[address] [facility], [place] Oxygen saturation in Blood 95.0 % Normal 95.0-100.0 [facility] Comment on above: Performed By: #### A BG ####[facility] [address] pCO2 48.5 mm[Hg] High 35.0-45.0 [facility] Comment on above: Performed By: #### A BG ####[address] pH 7.370 Normal 7.350-7.450 [facility] Comment on above: Performed By: #### A BG ####[address] Std Base Excess 1.6 mmol/L Normal -3.0-3.0 [facility] Comment on above: Performed By: #### A BG ####[address] FIO2 60% Normal [facility] Comment on above: Performed By: #### A BG ####[address] Basic Metabolic Panelon 07-0 Calcium [Mass/Vol] 8.5 mg/dL Normal 8.4-10.4 [facility] Comment on above: Performed By: #### H BSAG, LFT3, HEMDF, HIV4, TROPN, MG3, BMP3M, DDI2, PHOS3, CRP2, HEPC, ICA, FERR3, LDH3 ####[address] #### IL6O, HBCAO ####The performing lab is in the report. Anion gap [Moles/Vol] 6 mmol/L Normal 3-13 [facility] Comment on above: Performed By: #### H BSAG, LFT3, HEMDF, HIV4, TROPN, MG3, BMP3M, DDI2, PHOS3, CRP2, HEPC, ICA, FERR3, LDH3 ####[address] #### IL6O, HBCAO ####The performing lab is in the report. CO2 [Moles/Vol] 25 mmol/L Normal 22-30 [facility] Comment on above: Performed By: #### H BSAG, LFT3, HEMDF, HIV4, TROPN, MG3, BMP3M, DDI2, PHOS3, CRP2, HEPC, ICA, FERR3, LDH3 ####[address] #### IL6O, HBCAO ####The performing lab is in the report. Glucose [Mass/Vol] 203 mg/dL High 70-100 [facility] Comment on above: Performed By: #### H BSAG, LFT3, HEMDF, HIV4, TROPN, MG3, BMP3M, DDI2, PHOS3, CRP2, HEPC, ICA, FERR3, LDH3 ####[address] #### IL6O, HBCAO ####The performing lab is in the report. Urea nitrogen [Mass/Vol] 27 mg/dL High 7-20 [facility] Comment on above: Performed By: #### H BSAG, LFT3, HEMDF, HIV4, TROPN, MG3, BMP3M, DDI2, PHOS3, CRP2, HEPC, ICA, FERR3, LDH3 ####[address] #### IL6O, HBCAO ####The performing lab is in the report. Creatinine [Mass/Vol] 0.96 mg/dL Normal 0.52-1.25 [facility] Comment on above: Performed By: #### H BSAG, LFT3, HEMDF, HIV4, TROPN, MG3, BMP3M, DDI2, PHOS3, CRP2, HEPC, ICA, FERR3, LDH3 ####[address] #### IL6O, HBCAO ####The performing lab is in the report. GFR/1.73 sq M.predicted among blacks MDRD (S/P/Bld) [Vol rate/Area] 78.1 mL/min/{1.73_m2} Normal >60 [facility] Comment on above: Performed By: #### H BSAG, LFT3, HEMDF, HIV4, TROPN, MG3, BMP3M, DDI2, PHOS3, CRP2, HEPC, ICA, FERR3, LDH3 ####[address] [address]#### IL6O, HBCAO ####The performing lab is in the report. GFR/1.73 sq M.predicted among non-blacks MDRD (S/P/Bld) [Vol rate/Area] 67.4 mL/min/{1.73_m2} Normal >60 [facility] Comment on above: Result Comment: KDIG O guidelines provide the following GFR categories:Stage GFR(ml/min/1.73 m2) TermsG1 >=90 Normal or highG2 60-89 Mildly decreased*G3a 45-59 Mildly to moderately [id number] 30-44 Moderately to severely decreasedG4 15-29 Severely [...] DDI2, PHOS3, CRP2, HEPC, ICA, FERR3, LDH3 ####[address] [address]#### IL6O, HBCAO ####The performing lab is in the report. Potassium [Moles/Vol] 4.2 mmol/L Normal 3.5-5.1 [facility] Comment on above: Performed By: #### H BSAG, LFT3, HEMDF, HIV4, TROPN, MG3, BMP3M, DDI2, PHOS3, CRP2, HEPC, ICA, FERR3, LDH3 ####[address] #### IL6O, HBCAO ####The performing lab is in the report. Sodium [Moles/Vol] 137 mmol/L Normal 135-145 [facility] Comment on above: Performed By: #### H BSAG, LFT3, HEMDF, HIV4, TROPN, MG3, BMP3M, DDI2, PHOS3, CRP2, HEPC, ICA, FERR3, LDH3 ####[address] #### IL6O, HBCAO ####The performing lab is in the report. Chloride [Moles/Vol] 106 mmol/L Normal 98-107 [facility] Comment on above: Performed By: #### H BSAG, LFT3, HEMDF, HIV4, TROPN, MG3, BMP3M, DDI2, PHOS3, CRP2, HEPC, ICA, FERR3, LDH3 ####[address] [address]#### IL6O, HBCAO ####The performing lab is in the report. C-Reactive Proteinon 021 CRP [Mass/Vol] 89.2 mg/L High 0.0-6.0 [facility] Comment on above: Result Comment: . Performed By: #### H BSAG, LFT3, HEMDF, HIV4, TROPN, MG3, BMP3M, DDI2, PHOS3, CRP2, HEPC, ICA, FERR3, LDH3 ####[address] #### IL6O, HBCAO ####The performing lab is in the report. CR Chest Portableon 06-05-20 CR Chest Portable Normal [facility] Calcium,Ionizedon 06-05-2021 Ionized Ca,Measured 4.60 mg/dL Normal 4.30-5.20 [facility] Comment on above: Performed By: #### H BSAG, LFT3, HEMDF, HIV4, TROPN, MG3, BMP3M, DDI2, PHOS3, CRP2, HEPC, ICA, FERR3, LDH3 ####[address] [place], [place] #### IL6O, HBCAO ####The performing lab is in the report. pH, Ionized Calcium 7.35 Normal 7.31-7.46 [facility] Comment on above: Performed By: #### H BSAG, LFT3, HEMDF, HIV4, TROPN, MG3, BMP3M, DDI2, PHOS3, CRP2, HEPC, ICA, FERR3, LDH3 ####[address] #### IL6O, HBCAO ####The performing lab is in the report. D-Dimer, Innovanceon 021 D-Dimer, Innovance 4.34 mg/L High <0.19-0.50 [facility] Comment on above: Result Comment: Inno carrington D-Dimer values of <0.50 mg/L FEU can be used incombination with a pre-test probability model (e.g. Well's)to exclude pulmonary embolism (PE) disease, as well as jodi in the diagnosis of deep vein thrombosis (DVT). Performed By: #### H BSAG, LFT3, HEMDF, HIV4, TROPN, MG3, BMP3M, DDI2, PHOS3, CRP2, HEPC, ICA, FERR3, LDH3 ####[address] #### IL6O, HBCAO ####The performing lab is in the report. Ferritinon 06-05-2021 Ferritin [Mass/Vol] 189 ng/mL Normal 8-252 [facility] Comment on above: Performed By: #### H BSAG, LFT3, HEMDF, HIV4, TROPN, MG3, BMP3M, DDI2, PHOS3, CRP2, HEPC, ICA, FERR3, LDH3 ####[address] #### IL6O, HBCAO ####The performing lab is in the report. Glucose,Bedsideon 06-05-2021 Glucose [Mass/Vol] 191 mg/dL High 70-100 [facility] Comment on above: Result Comment: Test performed by glucose meter. Results may be 10%-15% lowerthan serum/plasma values. (CLIA ID [id number]) Performed By: #### B GLU ####[employer] [address] [id number] [place] [address] Glucose [Mass/Vol] 193 mg/dL High 70-100 [facility] Comment on above: Result Comment: Test performed by glucose meter. Results may be 10%-15% lowerthan serum/plasma values. (CLIA ID [id number]) Performed By: #### B GLU ####[facility] [employer] [id number] [place] [address] Glucose [Mass/Vol] 163 mg/dL High 70-[address] [place] [address] Comment on above: Result Comment: Test performed by glucose meter. Results may be 10%-15% lowerthan serum/plasma values. (CLIA ID [id number]) Performed By: #### B GLU ####[facility] [id number] [place] [address] Glucose [Mass/Vol] 179 mg/dL High [address] Comment on above: Result Comment: Test performed by glucose meter. Results may be 10%-15% lowerthan serum/plasma values. (CLIA ID [id number]) Performed By: #### B GLU ####[address] [place] [address] Glucose [Mass/Vol] 220 mg/dL High [address] [place] [address] Comment on above: Result Comment: Test performed by glucose meter. Results may be 10%-15% lowerthan serum/plasma values. (CLIA ID [id number]) Performed By: #### B GLU ####[employer] [id number] [place] [address] HIV 1,2 Ab; p24 Agon HIV 1,2 Ab; p24 Ag Non-Reactive Normal Nonreactive [facility] Comment on above: Result Comment: The specimen was non-reactive for HIV-1 and HIV-2antibodies and p24 antigen using an FDA-cleared 4thgeneration HIV test. Based on this non-reactive screenresult, further reflexive testing was not indicated andwas, therefore, not performed. Performed By: #### H BSAG, LFT3, HEMDF, HIV4, TROPN, MG3, BMP3M, DDI2, PHOS3, CRP2, HEPC, ICA, FERR3, LDH3 ####[place] [address]#### IL6O, HBCAO ####The performing lab is in the report. Hemogram w/ Autodiffon 06-05 Abs Baso Cnt 0.0 10*3/uL Normal 0.0-0.2 [facility] Comment on above: Performed By: #### H BSAG, LFT3, HEMDF, HIV4, TROPN, MG3, BMP3M, DDI2, PHOS3, CRP2, HEPC, ICA, FERR3, LDH3 ####[address] [address]#### IL6O, HBCAO ####The performing lab is in the report. Abs Neutrophile Cnt 1.8 10*3/uL Normal 1.8-7.0 [facility] Comment on above: Performed By: #### H BSAG, LFT3, HEMDF, HIV4, TROPN, MG3, BMP3M, DDI2, PHOS3, CRP2, HEPC, ICA, FERR3, LDH3 ####[address] #### IL6O, HBCAO ####The performing lab is in the report. Basophils/100 WBC (Bld) 0.0 % Normal 0.0-2.0 [facility] Comment on above: Performed By: #### H BSAG, LFT3, HEMDF, HIV4, TROPN, MG3, BMP3M, DDI2, PHOS3, CRP2, HEPC, ICA, FERR3, LDH3 ####[address] #### IL6O, HBCAO ####The performing lab is in the report. Eosinophils (Bld) [#/Vol] 0.0 10*3/uL Normal 0.0-0.5 [facility] Comment on above: Performed By: #### H BSAG, LFT3, HEMDF, HIV4, TROPN, MG3, BMP3M, DDI2, PHOS3, CRP2, HEPC, ICA, FERR3, LDH3 ####[place] [address]#### IL6O, HBCAO ####The performing lab is in the report. Eosinophils/100 WBC (Bld) 0.0 % Low 1.0-6.0 [facility] Comment on above: Performed By: #### H BSAG, LFT3, HEMDF, HIV4, TROPN, MG3, BMP3M, DDI2, PHOS3, CRP2, HEPC, ICA, FERR3, LDH3 ####[place] [address]#### IL6O, HBCAO ####The performing lab is in the report. Erythrocyte distribution width (RBC) [Ratio] 20.3 % High 11.5-14.5 [facility] Comment on above: Performed By: #### H BSAG, LFT3, HEMDF, HIV4, TROPN, MG3, BMP3M, DDI2, PHOS3, CRP2, HEPC, ICA, FERR3, LDH3 ####[place] [address]#### IL6O, HBCAO ####The performing lab is in the report. Granulocytes/100 WBC (Bld) 76.6 % Normal 40.0-80.0 [facility] Comment on above: Performed By: #### H BSAG, LFT3, HEMDF, HIV4, TROPN, MG3, BMP3M, DDI2, PHOS3, CRP2, HEPC, ICA, FERR3, LDH3 ####[address] #### IL6O, HBCAO ####The performing lab is in the report. Hematocrit (Bld) [Volume fraction] 34.4 % Low 35.0-47.0 [facility] Comment on above: Performed By: #### H BSAG, LFT3, HEMDF, HIV4, TROPN, MG3, BMP3M, DDI2, PHOS3, CRP2, HEPC, ICA, FERR3, LDH3 ####[address] [address]#### IL6O, HBCAO ####The performing lab is in the report. Hemoglobin (Bld) [Mass/Vol] 10.7 g/dL Low 11.7-16.0 [facility] Comment on above: Performed By: #### H BSAG, LFT3, HEMDF, HIV4, TROPN, MG3, BMP3M, DDI2, PHOS3, CRP2, HEPC, ICA, FERR3, LDH3 ####[address] [address]#### IL6O, HBCAO ####The performing lab is in the report. Lymphocytes (Bld) [#/Vol] 0.2 10*3/uL Low 1.0-4.3 [facility] Comment on above: Performed By: #### H BSAG, LFT3, HEMDF, HIV4, TROPN, MG3, BMP3M, DDI2, PHOS3, CRP2, HEPC, ICA, FERR3, LDH3 ####[address] #### IL6O, HBCAO ####The performing lab is in the report. Lymphocytes/100 WBC (Bld) 10.3 % Low 20.0-40.0 [facility] Comment on above: Performed By: #### H BSAG, LFT3, HEMDF, HIV4, TROPN, MG3, BMP3M, DDI2, PHOS3, CRP2, HEPC, ICA, FERR3, LDH3 ####[address] [address]#### IL6O, HBCAO ####The performing lab is in the report. MCH (RBC) [Entitic mass] 22.3 pg Low 26.0-34.0 [facility] Comment on above: Performed By: #### H BSAG, LFT3, HEMDF, HIV4, TROPN, MG3, BMP3M, DDI2, PHOS3, CRP2, HEPC, ICA, FERR3, LDH3 ####[address] #### IL6O, HBCAO ####The performing lab is in the report. MCHC 31.3 % Low 32.0-36.0 [facility] Comment on above: Performed By: #### H BSAG, LFT3, HEMDF, HIV4, TROPN, MG3, BMP3M, DDI2, PHOS3, CRP2, HEPC, ICA, FERR3, LDH3 ####[address] #### IL6O, HBCAO ####The performing lab is in the report. MCV (RBC) [Entitic vol] 71.2 fL Low 79.0-98.0 [facility] Comment on above: Performed By: #### H BSAG, LFT3, HEMDF, HIV4, TROPN, MG3, BMP3M, DDI2, PHOS3, CRP2, HEPC, ICA, FERR3, LDH3 ####[address] #### IL6O, HBCAO ####The performing lab is in the report. Monocytes (Bld) [#/Vol] 0.3 10*3/uL Normal 0.0-0.8 [facility] Comment on above: Performed By: #### H BSAG, LFT3, HEMDF, HIV4, TROPN, MG3, BMP3M, DDI2, PHOS3, CRP2, HEPC, ICA, FERR3, LDH3 ####[address] #### IL6O, HBCAO ####The performing lab is in the report. Monocytes/100 WBC (Bld) 13.1 % High 2.0-10.0 [facility] Comment on above: Performed By: #### H BSAG, LFT3, HEMDF, HIV4, TROPN, MG3, BMP3M, DDI2, PHOS3, CRP2, HEPC, ICA, FERR3, LDH3 ####[address] [address]#### IL6O, HBCAO ####The performing lab is in the report. Platelet mean volume (Bld) [Entitic vol] 8.5 fL Normal 7.4-10.4 [facility] Comment on above: Performed By: #### H BSAG, LFT3, HEMDF, HIV4, TROPN, MG3, BMP3M, DDI2, PHOS3, CRP2, HEPC, ICA, FERR3, LDH3 ####[address] [address]#### IL6O, HBCAO ####The performing lab is in the report. Platelets (Bld) [#/Vol] 163 10*3/uL Normal 140-440 [facility] Comment on above: Performed By: #### H BSAG, LFT3, HEMDF, HIV4, TROPN, MG3, BMP3M, DDI2, PHOS3, CRP2, HEPC, ICA, FERR3, LDH3 ####[address] [address]#### IL6O, HBCAO ####The performing lab is in the report. RBC (Bld) [#/Vol] 4.83 10*6/uL Normal 3.80-5.20 [facility] Comment on above: Performed By: #### H BSAG, LFT3, HEMDF, HIV4, TROPN, MG3, BMP3M, DDI2, PHOS3, CRP2, HEPC, ICA, FERR3, LDH3 ####[address] [address]#### IL6O, HBCAO ####The performing lab is in the report. WBC (Bld) [#/Vol] 2.3 10*3/uL Low 3.6-10.7 [facility] Comment on above: Performed By: #### H BSAG, LFT3, HEMDF, HIV4, TROPN, MG3, BMP3M, DDI2, PHOS3, CRP2, HEPC, ICA, FERR3, LDH3 ####[place] [address]#### IL6O, HBCAO ####The performing lab is in the report. Hep B Surface Abon 1 Hep B Surface Ab < 8.0 Normal [facility] Comment on above: Result Comment: Inte rpretation:<8.0 Non-Reactive8.0-11.9 Equivocal>= 12.0 Ab DetectedNote: If an equivocal result is interpreted, an antibodystatus is unable to be determined. Collect new specimenif clinically indicated. Performed By: #### H BSA ####[address] Hep B Surface Agon 1 Hep B Surface Ag Not detected Normal Not Detected [facility] Comment on above: Performed By: #### H BSAG, LFT3, HEMDF, HIV4, TROPN, MG3, BMP3M, DDI2, PHOS3, CRP2, HEPC, ICA, FERR3, LDH3 ####[place] [address]#### IL6O, HBCAO ####The performing lab is in the report. Hep C Antibodyon 06-05-2021 Hep C Antibody Not detected Normal Not Detected [facility] Comment on above: Result Comment: Dalila ents with DETECTED Hepatitis C Ab results should have a new specimensubmitted for supplemental testing with a Hepatitis C Quantitative RNA assay(viral load), if clinically indicated. Performed By: #### H BSAG, LFT3, HEMDF, HIV4, TROPN, MG3, BMP3M, DDI2, PHOS3, CRP2, HEPC, ICA, FERR3, LDH3 ####[place] [address]#### IL6O, HBCAO ####The performing lab is in the report. Hepatic Functionon 1 ALT [Catalytic activity/Vol] 42 U/L High 0-34 [facility] Comment on above: Result Comment: The ALT test is performed by an updated assay method.Please note that the reference intervals have beenchanged and are now sex specific. Performed By: #### H BSAG, LFT3, HEMDF, HIV4, TROPN, MG3, BMP3M, DDI2, PHOS3, CRP2, HEPC, ICA, FERR3, LDH3 ####[address] #### IL6O, HBCAO ####The performing lab is in the report. ALP [Catalytic activity/Vol] 82 U/L Normal 38-126 [facility] Comment on above: Performed By: #### H BSAG, LFT3, HEMDF, HIV4, TROPN, MG3, BMP3M, DDI2, PHOS3, CRP2, HEPC, ICA, FERR3, LDH3 ####[address] #### IL6O, HBCAO ####The performing lab is in the report. AST [Catalytic activity/Vol] 49 U/L High 15-46 [facility] Comment on above: Performed By: #### H BSAG, LFT3, HEMDF, HIV4, TROPN, MG3, BMP3M, DDI2, PHOS3, CRP2, HEPC, ICA, FERR3, LDH3 ####[address] #### IL6O, HBCAO ####The performing lab is in the report. Bilirubin [Mass/Vol] 0.3 mg/dL Normal 0.2-1.3 [facility] Comment on above: Performed By: #### H BSAG, LFT3, HEMDF, HIV4, TROPN, MG3, BMP3M, DDI2, PHOS3, CRP2, HEPC, ICA, FERR3, LDH3 ####[address] #### IL6O, HBCAO ####The performing lab is in the report. Bilirubin.indirect [Mass/Vol] 0.0 mg/dL Normal 0.0-0.3 [facility] Comment on above: Performed By: #### H BSAG, LFT3, HEMDF, HIV4, TROPN, MG3, BMP3M, DDI2, PHOS3, CRP2, HEPC, ICA, FERR3, LDH3 ####[place] [address]#### IL6O, HBCAO ####The performing lab is in the report. Protein [Mass/Vol] 6.3 g/dL Normal 6.3-8.2 [facility] Comment on above: Performed By: #### H BSAG, LFT3, HEMDF, HIV4, TROPN, MG3, BMP3M, DDI2, PHOS3, CRP2, HEPC, ICA, FERR3, LDH3 ####[address] [address]#### IL6O, HBCAO ####The performing lab is in the report. Albumin [Mass/Vol] 3.0 g/dL Low 3.5-5.0 [facility] Comment on above: Performed By: #### H BSAG, LFT3, HEMDF, HIV4, TROPN, MG3, BMP3M, DDI2, PHOS3, CRP2, HEPC, ICA, FERR3, LDH3 ####[place] [address]#### IL6O, HBCAO ####The performing lab is in the report. LDHon 06-05-2021 LDH 383 U/L High 120-246 [facility] Comment on above: Performed By: #### H BSAG, LFT3, HEMDF, HIV4, TROPN, MG3, BMP3M, DDI2, PHOS3, CRP2, HEPC, ICA, FERR3, LDH3 ####[address] [address]#### IL6O, HBCAO ####The performing lab is in the report. Magnesiumon 06-05-2021 Magnesium [Mass/Vol] 2.4 mg/dL High 1.6-2.3 [facility] Comment on above: Performed By: #### H BSAG, LFT3, HEMDF, HIV4, TROPN, MG3, BMP3M, DDI2, PHOS3, CRP2, HEPC, ICA, FERR3, LDH3 ####[address] #### IL6O, HBCAO ####The performing lab is in the report. Phosphoruson 06-05-2021 Phosphate [Mass/Vol] 4.4 mg/dL Normal 2.5-4.5 [facility] Comment on above: Performed By: #### H BSAG, LFT3, HEMDF, HIV4, TROPN, MG3, BMP3M, DDI2, PHOS3, CRP2, HEPC, ICA, FERR3, LDH3 ####[address] #### IL6O, HBCAO ####The performing lab is in the report. Procalcitoninon 06-05-2021 Procalcitonin 0.07 ng/mL Normal 0.00-0.09 [facility] Comment on above: Performed By: #### P OLESYA ####[address] Interpretation See Below Normal [facility] Comment on above: Result Comment: PCT <0.50 = Low risk of severe sepsis and/or septic shock.PCT >2.00 = High risk of severe sepsis and/or septic shock. Performed By: #### P OLESYA ####[address] Quantiferonon 06-05-2021 Quantiferon Negative Normal Negative [facility] Comment on above: Performed By: #### C ORTL, QTF, DDI2, PT, CK3, ICA, FEIBC, LIPD2, TROPN, LACT3, MG3, FERR3, HA1C2, APTT, BNP3, PHOS3, PCAL, HEMDF, CRP2, LDH3, BMP3M, TSH5 ####[address] #### TRFN, [id number] ####[facility] [facility] [address] Troponin Ion 06-05-2021 Troponin I.cardiac [Mass/Vol] ng/mL Normal 0.000-0.034 [facility] Comment on above: Result Comment: . Performed By: #### H BSAG, LFT3, HEMDF, HIV4, TROPN, MG3, BMP3M, DDI2, PHOS3, CRP2, HEPC, ICA, FERR3, LDH3 ####[facility] [place], [place] #### IL6O, HBCAO ####The performing lab is in the report. Arterial Blood Gaseson 06-04 CO2 [Moles/Vol] 27.9 mmol/L High 23.0-27.0 [facility] Comment on above: Performed By: #### A BG ####[id number] [place], [place] HCO3 (Bld) [Moles/Vol] 26.5 mmol/L High 21.0-25.0 [facility] Comment on above: Performed By: #### A BG ####[id number] [place], [place] Hemoglobin (Bld) [Mass/Vol] 12.1 g/dL Normal ScreenOnly [facility] Comment on above: Performed By: #### A BG ####[address] [place], [place] Oxygen (Bld) [Partial pressure] 142.9 mm[Hg] High 80.0-100.0 [facility] Comment on above: Performed By: #### A BG ####[id number] [place], [place] Oxygen saturation in Blood 98.5 % Normal 95.0-100.0 [facility] Comment on above: Performed By: #### A BG ####[id number] [place], [place] pCO2 47.7 mm[Hg] High 35.0-45.0 [facility] Comment on above: Performed By: #### A BG ####[address] [place], [place] pH 7.362 Normal 7.350-7.450 [facility] Comment on above: Performed By: #### A BG ####[address] [place], [place] Std Base Excess 0.6 mmol/L Normal -3.0-3.0 [facility] Comment on above: Performed By: #### A BG ####[address] [place], [place] FIO2 90% Normal [facility] Comment on above: Performed By: #### A BG ####[address] [address] [address] [place], [place] CO2 [Moles/Vol] 26.8 mmol/L Normal 23.0-27.0 [facility] Comment on above: Performed By: #### A BG ####[address] [place], [place] HCO3 (Bld) [Moles/Vol] 25.3 mmol/L High 21.0-25.0 [facility] Comment on above: Performed By: #### A BG ####[address] [place], [place] Hemoglobin (Bld) [Mass/Vol] 12.1 g/dL Normal ScreenOnly [facility] Comment on above: Performed By: #### A BG ####[address] [place], [place] Oxygen (Bld) [Partial pressure] 171.0 mm[Hg] High 80.0-100.0 [facility] Comment on above: Performed By: #### A BG ####[address] Oxygen saturation in Blood 98.9 % Normal 95.0-100.0 [facility] Comment on above: Performed By: #### A BG ####[address] [place], [place] pCO2 50.5 mm[Hg] High 35.0-45.0 [facility] Comment on above: Performed By: #### A BG ####[address] [place], [place] pH 7.317 Low 7.350-7.450 [facility] Comment on above: Performed By: #### A BG ####[address] [place], [place] Std Base Excess -1.3 mmol/L Normal -3.0-3.0 [facility] Comment on above: Performed By: #### A BG ####[address] [place], [place] FIO2 100% Normal [facility] Comment on above: Performed By: #### A BG ####[address] [place], [place] CO2 [Moles/Vol] 29.7 mmol/L High 23.0-27.0 [facility] Comment on above: Performed By: #### A BG ####[address] [place], [place] HCO3 (Bld) [Moles/Vol] 28.2 mmol/L High 21.0-25.0 [facility] Comment on above: Performed By: #### A BG ####[address] [place], [place] Hemoglobin (Bld) [Mass/Vol] 12.3 g/dL Normal ScreenOnly [facility] Comment on above: Performed By: #### A BG ####[address] [place], [place] Oxygen (Bld) [Partial pressure] 92.9 mm[Hg] Normal 80.0-100.0 [facility] Comment on above: Performed By: #### A BG ####[address] [place], [place] Oxygen saturation in Blood 96.0 % Normal 95.0-100.0 [facility] Comment on above: Performed By: #### A BG ####[address] [place], [place] pCO2 50.3 mm[Hg] High 35.0-45.0 [facility] Comment on above: Performed By: #### A BG ####[address] [place], [place] pH 7.366 Normal 7.350-7.450 [facility] Comment on above: Performed By: #### A BG ####[address] [place], [place] Std Base Excess 2.1 mmol/L Normal -3.0-3.0 [facility] Comment on above: Performed By: #### A BG ####[address] FIO2 100% Normal [facility] Comment on above: Performed By: #### A BG ####[address] CO2 [Moles/Vol] 29.3 mmol/L High 23.0-27.0 [facility] Comment on above: Performed By: #### A BG ####[address] [address] [place], [place] HCO3 (Bld) [Moles/Vol] 27.9 mmol/L High 21.0-25.0 [facility] Comment on above: Performed By: #### A BG ####[address] [address] [place], [place] Hemoglobin (Bld) [Mass/Vol] 12.8 g/dL Normal ScreenOnly [facility] Comment on above: Performed By: #### A BG ####[address] Oxygen (Bld) [Partial pressure] 70.0 mm[Hg] Low 80.0-100.0 [facility] Comment on above: Performed By: #### A BG ####[address] Oxygen saturation in Blood 92.2 % Low 95.0-100.0 [facility] Comment on above: Performed By: #### A BG ####[address] [place], [place] pCO2 44.5 mm[Hg] Normal 35.0-45.0 [facility] Comment on above: Performed By: #### A BG ####[address] [place], [place] pH 7.415 Normal 7.350-7.450 [facility] Comment on above: Performed By: #### A BG ####[address] [place], [place] Std Base Excess 2.9 mmol/L Normal -3.0-3.0 [facility] Comment on above: Performed By: #### A BG ####[address] [place], [place] FIO2 100% Normal [facility] Comment on above: Performed By: #### A BG ####[address] [place], [place] Basic Metabolic Panelon 07-0 -2020 Calcium [Mass/Vol] 8.6 mg/dL Normal 8.4-10.4 [facility] Comment on above: Performed By: #### I CA, DDI2, MG3, PHOS3, FERR3, CRP2, HEMDF, LDH3, LFT3, BMP3M ####[address] [place], [place] Glucose [Mass/Vol] 174 mg/dL High 70-100 [facility] Comment on above: Performed By: #### I CA, DDI2, MG3, PHOS3, FERR3, CRP2, HEMDF, LDH3, LFT3, BMP3M ####[address] [place], [place] Anion gap [Moles/Vol] 7 mmol/L Normal 3-13 [facility] Comment on above: Performed By: #### I CA, DDI2, MG3, PHOS3, FERR3, CRP2, HEMDF, LDH3, LFT3, BMP3M ####[address] [address] [place], [place] CO2 [Moles/Vol] 27 mmol/L Normal 22-30 [facility] Comment on above: Performed By: #### I CA, DDI2, MG3, PHOS3, FERR3, CRP2, HEMDF, LDH3, LFT3, BMP3M ####[address] [place], [place] Urea nitrogen [Mass/Vol] 15 mg/dL Normal 7-20 [facility] Comment on above: Performed By: #### I CA, DDI2, MG3, PHOS3, FERR3, CRP2, HEMDF, LDH3, LFT3, BMP3M ####[address] [place], [place] Creatinine [Mass/Vol] 0.56 mg/dL Normal 0.52-1.25 [facility] Comment on above: Performed By: #### I CA, DDI2, MG3, PHOS3, FERR3, CRP2, HEMDF, LDH3, LFT3, BMP3M ####[address] eGFR OTHER > 90.0 Normal >60 [facility] Comment on above: Result Comment: KDIG O guidelines provide the following GFR categories:Stage GFR(ml/min/1.73 m2) TermsG1 >=90 Normal or highG2 60-89 Mildly decreased*G3a 45-59 Mildly to moderately [id number] 30-44 Moderately to severely decreasedG4 15-29 Severely [...] PHOS3, FERR3, CRP2, HEMDF, LDH3, LFT3, BMP3M ####[address] [place], [place] GFR/1.73 sq M.predicted among blacks MDRD (S/P/Bld) [Vol rate/Area] mL/min/{1.73_m2} Normal >60 [facility] Comment on above: Performed By: #### I CA, DDI2, MG3, PHOS3, FERR3, CRP2, HEMDF, LDH3, LFT3, BMP3M ####[address] [place], [place] Chloride [Moles/Vol] 105 mmol/L Normal 98-107 [facility] Comment on above: Performed By: #### I CA, DDI2, MG3, PHOS3, FERR3, CRP2, HEMDF, LDH3, LFT3, BMP3M ####[address] Potassium [Moles/Vol] 4.4 mmol/L Normal 3.5-5.1 [facility] Comment on above: Performed By: #### I CA, DDI2, MG3, PHOS3, FERR3, CRP2, HEMDF, LDH3, LFT3, BMP3M ####[address] Sodium [Moles/Vol] 140 mmol/L Normal 135-145 [facility] Comment on above: Performed By: #### I CA, DDI2, MG3, PHOS3, FERR3, CRP2, HEMDF, LDH3, LFT3, BMP3M ####[address] C-Reactive Proteinon 021 CRP [Mass/Vol] 146.8 mg/L High 0.0-6.0 [facility] Comment on above: Result Comment: . Performed By: #### I CA, DDI2, MG3, PHOS3, FERR3, CRP2, HEMDF, LDH3, LFT3, BMP3M ####[address] [place], [place] CR Chest Portableon 06-04-20 21 CR Chest Portable Normal [facility] Calcium,Ionizedon 06-04-2021 Ionized Ca,Measured 4.40 mg/dL Normal 4.30-5.20 [facility] Comment on above: Performed By: #### I CA, DDI2, MG3, PHOS3, FERR3, CRP2, HEMDF, LDH3, LFT3, BMP3M ####[address] [place], [place] pH, Ionized Calcium 7.41 Normal 7.31-7.46 [facility] Comment on above: Performed By: #### I CA, DDI2, MG3, PHOS3, FERR3, CRP2, HEMDF, LDH3, LFT3, BMP3M ####[address] Complete Urinalysison 2020 Appearance (U) Clear Normal Clear [facility] Comment on above: Result Comment: . Performed By: #### N AURR, CUA2, CRTUR, OSMUR ####[address] [address] [place], [place] Bacteria Few Abnormal Negative [facility] Comment on above: Result Comment: . Performed By: #### N AURR, CUA2, CRTUR, OSMUR ####[address] [address] [place], [place] Bilirubin,Urine Negative Normal Negative [facility] Comment on above: Result Comment: . Performed By: #### N AURR, CUA2, CRTUR, OSMUR ####[address] [place], [place] Color (U) Light-Yellow Normal Lt. Yellow [facility] Comment on above: Result Comment: . Performed By: #### N AURR, CUA2, CRTUR, OSMUR ####[address] Glucose Ql (U) Normal Normal Normal (<70) [facility] Comment on above: Result Comment: . Performed By: #### N AURR, CUA2, CRTUR, OSMUR ####[facility] [place], [place] Ketone,Urine Negative Normal Negative [facility] Comment on above: Result Comment: . Performed By: #### N AURR, CUA2, CRTUR, OSMUR ####[facility] [place], [place] Leukocytes,Urine Negative Normal Negative [facility] Comment on above: Result Comment: . Performed By: #### N AURR, CUA2, CRTUR, OSMUR ####[address] [place], [place] Mucous Threads Few Normal Negative [facility] Comment on above: Result Comment: . Performed By: #### N AURR, CUA2, CRTUR, OSMUR ####[address] [place], [place] Nitrites,Urine Negative Normal Negative [facility] Comment on above: Result Comment: . Performed By: #### N AURR, CUA2, CRTUR, OSMUR ####[address] [place], [place] Occult Blood,Urine 1.0 mg/dL Abnormal Negative [facility] Comment on above: Result Comment: . Performed By: #### N AURR, CUA2, CRTUR, OSMUR ####[address] [place], [place] pH,Urine 5.5 Normal 5.0-8.0 [facility] Comment on above: Result Comment: . Performed By: #### N AURR, CUA2, CRTUR, OSMUR ####[address] [place], [place] Protein (U) [Mass/Vol] 30 mg/dL Abnormal Negative [facility] Comment on above: Result Comment: . Performed By: #### N AURR, CUA2, CRTUR, OSMUR ####[address] [place], [place] RBC, Urine 0 - 2 Normal 0-2 [facility] Comment on above: Result Comment: . Performed By: #### N AURR, CUA2, CRTUR, OSMUR ####[address] [place], [place] Specific [place],Urine 1.011 Normal 1.005 - 1.030 [facility] Comment on above: Result Comment: . Performed By: #### N AURR, CUA2, CRTUR, OSMUR ####[address] [place], [place] Squamous Epithelial Negative Normal 3-5 [facility] Comment on above: Result Comment: . Performed By: #### N AURR, CUA2, CRTUR, OSMUR ####[address] [place], [place] Urobilinogen,Urine Normal Normal Normal (0-1) [facility] Comment on above: Result Comment: . Performed By: #### N AURR, CUA2, CRTUR, OSMUR ####[address] WBC, Urine 0 - 2 Normal 0-5 [facility] Comment on above: Result Comment: . Performed By: #### N AURR, CUA2, CRTUR, OSMUR ####[address] Creatinine, Ur Randomon 07-0 Creatinine, Ur Random 60.1 mg/dL Normal No Range [facility] Comment on above: Performed By: #### N AURR, CUA2, CRTUR, OSMUR ####[address] [place], [place] D-Dimer, Innovanceon 07-06-2 021 D-Dimer, Innovance 7.94 mg/L High <0.19-0.50 [facility] Comment on above: Result Comment: Inno carrington D-Dimer values of <0.50 mg/L FEU can be used incombination with a pre-test probability model (e.g. Well's)to exclude pulmonary embolism (PE) disease, as well as jodi in the diagnosis of deep vein thrombosis (DVT). Performed By: #### I CA, DDI2, MG3, PHOS3, FERR3, CRP2, HEMDF, LDH3, LFT3, BMP3M ####[address] [place], [place] Ferritinon 06-04-2021 Ferritin [Mass/Vol] 215 ng/mL Normal 8-252 [facility] Comment on above: Performed By: #### I CA, DDI2, MG3, PHOS3, FERR3, CRP2, HEMDF, LDH3, LFT3, BMP3M ####[address] [place], [place] Glucose,Bedsideon 06-04-2021 Glucose [Mass/Vol] 193 mg/dL High 70-100 [facility] Comment on above: Result Comment: Test performed by glucose meter. Results may be 10%-15% lowerthan serum/plasma values. (CLIA ID [id number]) Performed By: #### B GLU ####[address] Glucose [Mass/Vol] 195 mg/dL High 70-100 [facility] Comment on above: Result Comment: Test performed by glucose meter. Results may be 10%-15% lowerthan serum/plasma values. (CLIA ID [id number]) Performed By: #### B GLU ####[address] Hemogram w/ Autodiffon 06-04 Abs Baso Cnt 0.0 10*3/uL Normal 0.0-0.2 [facility] Comment on above: Performed By: #### I CA, DDI2, MG3, PHOS3, FERR3, CRP2, HEMDF, LDH3, LFT3, BMP3M ####[address] [place], [place] Abs Neutrophile Cnt 4.8 10*3/uL Normal 1.8-7.0 [facility] Comment on above: Performed By: #### I CA, DDI2, MG3, PHOS3, FERR3, CRP2, HEMDF, LDH3, LFT3, BMP3M ####[address] [address] [place], [place] Basophils/100 WBC (Bld) 0.2 % Normal 0.0-2.0 [facility] Comment on above: Performed By: #### I CA, DDI2, MG3, PHOS3, FERR3, CRP2, HEMDF, LDH3, LFT3, BMP3M ####[address] Eosinophils (Bld) [#/Vol] 0.0 10*3/uL Normal 0.0-0.5 [facility] Comment on above: Performed By: #### I CA, DDI2, MG3, PHOS3, FERR3, CRP2, HEMDF, LDH3, LFT3, BMP3M ####[address] Eosinophils/100 WBC (Bld) 0.0 % Low 1.0-6.0 [facility] Comment on above: Performed By: #### I CA, DDI2, MG3, PHOS3, FERR3, CRP2, HEMDF, LDH3, LFT3, BMP3M ####[address] Erythrocyte distribution width (RBC) [Ratio] 19.8 % High 11.5-14.5 [facility] Comment on above: Performed By: #### I CA, DDI2, MG3, PHOS3, FERR3, CRP2, HEMDF, LDH3, LFT3, BMP3M ####[address] Granulocytes/100 WBC (Bld) 85.7 % High 40.0-80.0 [facility] Comment on above: Performed By: #### I CA, DDI2, MG3, PHOS3, FERR3, CRP2, HEMDF, LDH3, LFT3, BMP3M ####[address] Hematocrit (Bld) [Volume fraction] 37.6 % Normal 35.0-47.0 [facility] Comment on above: Performed By: #### I CA, DDI2, MG3, PHOS3, FERR3, CRP2, HEMDF, LDH3, LFT3, BMP3M ####[address] Hemoglobin (Bld) [Mass/Vol] 12.0 g/dL Normal 11.7-16.0 [facility] Comment on above: Performed By: #### I CA, DDI2, MG3, PHOS3, FERR3, CRP2, HEMDF, LDH3, LFT3, BMP3M ####[address] Lymphocytes (Bld) [#/Vol] 0.4 10*3/uL Low 1.0-4.3 [facility] Comment on above: Performed By: #### I CA, DDI2, MG3, PHOS3, FERR3, CRP2, HEMDF, LDH3, LFT3, BMP3M ####[address] Lymphocytes/100 WBC (Bld) 6.5 % Low 20.0-40.0 [facility] Comment on above: Performed By: #### I CA, DDI2, MG3, PHOS3, FERR3, CRP2, HEMDF, LDH3, LFT3, BMP3M ####[address] [place], [place] MCH (RBC) [Entitic mass] 22.6 pg Low 26.0-34.0 [facility] Comment on above: Performed By: #### I CA, DDI2, MG3, PHOS3, FERR3, CRP2, HEMDF, LDH3, LFT3, BMP3M ####[address] [place] MCHC 31.8 % Low 32.0-36.0 [facility] Comment on above: Performed By: #### I CA, DDI2, MG3, PHOS3, FERR3, CRP2, HEMDF, LDH3, LFT3, BMP3M ####[address] [place], [place] MCV (RBC) [Entitic vol] 71.0 fL Low 79.0-98.0 [facility] Comment on above: Performed By: #### I CA, DDI2, MG3, PHOS3, FERR3, CRP2, HEMDF, LDH3, LFT3, BMP3M ####[address] [place], [place] Monocytes (Bld) [#/Vol] 0.4 10*3/uL Normal 0.0-0.8 [facility] Comment on above: Performed By: #### I CA, DDI2, MG3, PHOS3, FERR3, CRP2, HEMDF, LDH3, LFT3, BMP3M ####[address] [place], [place] Monocytes/100 WBC (Bld) 7.6 % Normal 2.0-10.0 [facility] Comment on above: Performed By: #### I CA, DDI2, MG3, PHOS3, FERR3, CRP2, HEMDF, LDH3, LFT3, BMP3M ####[address] Platelet mean volume (Bld) [Entitic vol] 8.6 fL Normal 7.4-10.4 [facility] Comment on above: Performed By: #### I CA, DDI2, MG3, PHOS3, FERR3, CRP2, HEMDF, LDH3, LFT3, BMP3M ####[address] Platelets (Bld) [#/Vol] 204 10*3/uL Normal 140-440 [facility] Comment on above: Performed By: #### I CA, DDI2, MG3, PHOS3, FERR3, CRP2, HEMDF, LDH3, LFT3, BMP3M ####[address] RBC (Bld) [#/Vol] 5.30 10*6/uL High 3.80-5.20 [facility] Comment on above: Performed By: #### I CA, DDI2, MG3, PHOS3, FERR3, CRP2, HEMDF, LDH3, LFT3, BMP3M ####[address] WBC (Bld) [#/Vol] 5.6 10*3/uL Normal 3.6-10.7 [facility] Comment on above: Performed By: #### I CA, DDI2, MG3, PHOS3, FERR3, CRP2, HEMDF, LDH3, LFT3, BMP3M ####[address] Hepatic Functionon 1 ALP [Catalytic activity/Vol] 100 U/L Normal 38-126 [facility] Comment on above: Performed By: #### I CA, DDI2, MG3, PHOS3, FERR3, CRP2, HEMDF, LDH3, LFT3, BMP3M ####[address] [place], [place] ALT [Catalytic activity/Vol] 40 U/L High 0-34 [facility] Comment on above: Result Comment: The ALT test is performed by an updated assay method.Please note that the reference intervals have beenchanged and are now sex specific. Performed By: #### I CA, DDI2, MG3, PHOS3, FERR3, CRP2, HEMDF, LDH3, LFT3, BMP3M ####[address] [place], [place] AST [Catalytic activity/Vol] 78 U/L High 15-46 [facility] Comment on above: Performed By: #### I CA, DDI2, MG3, PHOS3, FERR3, CRP2, HEMDF, LDH3, LFT3, BMP3M ####[address] Bilirubin [Mass/Vol] 0.3 mg/dL Normal 0.2-1.3 [facility] Comment on above: Performed By: #### I CA, DDI2, MG3, PHOS3, FERR3, CRP2, HEMDF, LDH3, LFT3, BMP3M ####[address] [place] [address] Bilirubin.indirect [Mass/Vol] 0.0 mg/dL Normal 0.0-0.3 [facility] Comment on above: Performed By: #### I CA, DDI2, MG3, PHOS3, FERR3, CRP2, HEMDF, LDH3, LFT3, BMP3M ####[address] Protein [Mass/Vol] 6.7 g/dL Normal 6.3-8.2 [facility] Comment on above: Performed By: #### I CA, DDI2, MG3, PHOS3, FERR3, CRP2, HEMDF, LDH3, LFT3, BMP3M ####[address] Albumin [Mass/Vol] 3.2 g/dL Low 3.5-5.0 [facility] Comment on above: Performed By: #### I CA, DDI2, MG3, PHOS3, FERR3, CRP2, HEMDF, LDH3, LFT3, BMP3M ####[address] LDHon 06-04-2021 LDH 576 U/L High 120-246 [facility] Comment on above: Performed By: #### I CA, DDI2, MG3, PHOS3, FERR3, CRP2, HEMDF, LDH3, LFT3, BMP3M ####[address] LEGIONELLA AG, URINEon 06-04 LEGIONELLA AG, URINE LEGIONELLA AG, URIN E --> Status: F Legionella antigen NOT DETECTED. Normal [facility] Comment on above: Performed By: #### TRINI DOHERTY ####[address] Magnesiumon 06-04-2021 Magnesium [Mass/Vol] 2.1 mg/dL Normal 1.6-2.3 [facility] Comment on above: Performed By: #### I CA, DDI2, MG3, PHOS3, FERR3, CRP2, HEMDF, LDH3, LFT3, BMP3M ####[facility] [place] [address] Osmolality,Urineon Osmolality,Urine 335 mosm/kg Normal 300-1000 [facility] Comment on above: Performed By: #### N AURR, CUA2, CRTUR, OSMUR ####[address] [place], [place] PNEUMONIA PCR PANELon 2020 PNEUMONIA PCR PANEL Normal [facility] Comment on above: Performed By: #### B FPNE ####[address] [place], [place] Phosphoruson 06-04-2021 Phosphate [Mass/Vol] 3.5 mg/dL Normal 2.5-4.5 [facility] Comment on above: Performed By: #### I CA, DDI2, MG3, PHOS3, FERR3, CRP2, HEMDF, LDH3, LFT3, BMP3M ####[address] [place], [place] STAIN GRAMon 06-04-2021 STAIN GRAM Normal [facility] Comment on above: Performed By: #### S /GRM, CS/RE ####[address] [place], [place] STREP PNEUMO ANTIGEN, URINEo n 06-04-2021 STREP PNEUMO ANTIGEN, URINE STREP PNEUMO ANTIGEN, URINE --> Status: F Strep pneumo antigen NOT DETECTED. Normal [facility] Comment on above: Performed By: #### S PAUR, LEGUR ####[facility] [place], [place] Sodium, Ur Randomon 06-04-20 21 Sodium [Moles/Vol] 8 mmol/L Low 30-90 [facility] Comment on above: Performed By: #### N AURR, CUA2, CRTUR, OSMUR ####[address] [place], [place] Transferrinon 06-04-2021 Transferrin [Mass/Vol] 277 mg/dL Normal 206-381 [facility] Comment on above: Performed By: #### C ORTL, QTF, DDI2, PT, CK3, ICA, FEIBC, LIPD2, TROPN, LACT3, MG3, FERR3, HA1C2, APTT, BNP3, PHOS3, PCAL, HEMDF, CRP2, LDH3, BMP3M, TSH5 ####[facility] [id number] [place] [address]#### TRFN, [id number] ####[address] [place] [address] VL Venous Duplex US Lower Ex t Bilateralon 06-04-2021 VL Venous Duplex US Lower Ext Bilateral Normal [facility] Vit D 25-OH, Totalon 021 Vit D 25-OH, Total 19 ng/mL Low 30-100 [facility] Comment on above: Result Comment: Ther apy is based on measurement of Total 25- OHD with thefollowing classification levels:Less than 20 ng/mL: Indicative of Vit D [id number] ng/mL: Suggests Vit D insufficiencyOptimal: Greater than or equal to 30 ng/mLTest performed by [employer] Competitive Immunoassay,measuring Total Vitamin D, not individual fractions. Performed By: #### C ORTL, QTF, DDI2, PT, CK3, ICA, FEIBC, LIPD2, TROPN, LACT3, MG3, FERR3, HA1C2, APTT, BNP3, PHOS3, PCAL, HEMDF, CRP2, LDH3, BMP3M, TSH5 ####[facility] [id number] [place], [place] #### TRFN, [id number] ####[facility] [employer] [address] [place] [address] APTTon 06-03-2021 aPTT Coag (Bld) [Time] 26.2 s Normal 20.0-30.5 [facility] Comment on above: Result Comment: NOTE : The therapeutic time for Heparin anticoagulation,based on Xa activity inhibition, is an APTT of 46-80seconds. Performed By: #### C ORTL, QTF, DDI2, PT, CK3, ICA, FEIBC, LIPD2, TROPN, LACT3, MG3, FERR3, HA1C2, APTT, BNP3, PHOS3, PCAL, HEMDF, CRP2, LDH3, BMP3M, TSH5 ####[facility] [place], [place] #### TRFN, VD25H ####[facility] [place] [address] Arterial Blood Gaseson 06-03 CO2 [Moles/Vol] 27.6 mmol/L High 23.0-27.0 [facility] Comment on above: Performed By: #### A BG ####[facility] [place], [place] HCO3 (Bld) [Moles/Vol] 26.5 mmol/L High 21.0-25.0 [facility] Comment on above: Performed By: #### A BG ####[address] Hemoglobin (Bld) [Mass/Vol] 12.8 g/dL Normal ScreenOnly [facility] Comment on above: Performed By: #### A BG ####[facility] [place], [place] Oxygen (Bld) [Partial pressure] 72.2 mm[Hg] Low 80.0-100.0 [facility] Comment on above: Performed By: #### A BG ####[address] [place], [place] Oxygen saturation in Blood 93.7 % Low 95.0-100.0 [facility] Comment on above: Performed By: #### A BG ####[facility] [place], [place] pCO2 38.0 mm[Hg] Normal 35.0-45.0 [facility] Comment on above: Performed By: #### A BG ####[address] [place], [place] pH 7.461 High 7.350-7.450 [facility] Comment on above: Performed By: #### A BG ####[address] Std Base Excess 2.7 mmol/L Normal -3.0-3.0 [facility] Comment on above: Performed By: #### A BG ####[address] FIO2 100% Normal [facility] Comment on above: Performed By: #### A BG ####[address] Basic Metabolic Panelon 07-0 -2020 Anion gap [Moles/Vol] 7 mmol/L Normal 3-13 [facility] Comment on above: Performed By: #### C ORTL, QTF, DDI2, PT, CK3, ICA, FEIBC, LIPD2, TROPN, LACT3, MG3, FERR3, HA1C2, APTT, BNP3, PHOS3, PCAL, HEMDF, CRP2, LDH3, BMP3M, TSH5 ####[address] #### OZIEL VD25H ####[facility] [address] Calcium [Mass/Vol] 8.5 mg/dL Normal 8.4-10.4 [facility] Comment on above: Performed By: #### C ORTL, QTF, DDI2, PT, CK3, ICA, FEIBC, LIPD2, TROPN, LACT3, MG3, FERR3, HA1C2, APTT, BNP3, PHOS3, PCAL, HEMDF, CRP2, LDH3, BMP3M, TSH5 ####[address] [place], [place] #### TRFN, [id number] ####[facility] [place] [address] CO2 [Moles/Vol] 27 mmol/L Normal 22-30 [facility] Comment on above: Performed By: #### C ORTL, QTF, DDI2, PT, CK3, ICA, FEIBC, LIPD2, TROPN, LACT3, MG3, FERR3, HA1C2, APTT, BNP3, PHOS3, PCAL, HEMDF, CRP2, LDH3, BMP3M, TSH5 ####[address] #### OZIEL VD25H ####[address] [place] [address] Glucose [Mass/Vol] 140 mg/dL High 70-100 [facility] Comment on above: Performed By: #### C ORTL, QTF, DDI2, PT, CK3, ICA, FEIBC, LIPD2, TROPN, LACT3, MG3, FERR3, HA1C2, APTT, BNP3, PHOS3, PCAL, HEMDF, CRP2, LDH3, BMP3M, TSH5 ####[address] #### OZIEL VD25H ####[address] [address] Urea nitrogen [Mass/Vol] 13 mg/dL Normal 7-20 [facility] Comment on above: Performed By: #### C ORTL, QTF, DDI2, PT, CK3, ICA, FEIBC, LIPD2, TROPN, LACT3, MG3, FERR3, HA1C2, APTT, BNP3, PHOS3, PCAL, HEMDF, CRP2, LDH3, BMP3M, TSH5 ####[address] #### OZIEL VD25H ####[address] [address] Creatinine [Mass/Vol] 0.54 mg/dL Normal 0.52-1.25 [facility] Comment on above: Performed By: #### C ORTL, QTF, DDI2, PT, CK3, ICA, FEIBC, LIPD2, TROPN, LACT3, MG3, FERR3, HA1C2, APTT, BNP3, PHOS3, PCAL, HEMDF, CRP2, LDH3, BMP3M, TSH5 ####[address] [place] [address]#### OZIEL VD25H ####[address] [address] eGFR OTHER > 90.0 Normal >60 [facility] Comment on above: Result Comment: KDIG O guidelines provide the following GFR categories:Stage GFR(ml/min/1.73 m2) TermsG1 >=90 Normal or highG2 60-89 Mildly decreased*G3a 45-59 Mildly to moderately [id number] 30-44 Moderately to severely decreasedG4 15-29 Severely [...] PHOS3, PCAL, HEMDF, CRP2, LDH3, BMP3M, TSH5 ####[facility] [employer] [address] [address]#### OZIEL VD25H ####[address] [address] GFR/1.73 sq M.predicted among blacks MDRD (S/P/Bld) [Vol rate/Area] mL/min/{1.73_m2} Normal >60 [facility] Comment on above: Performed By: #### C ORTL, QTF, DDI2, PT, CK3, ICA, FEIBC, LIPD2, TROPN, LACT3, MG3, FERR3, HA1C2, APTT, BNP3, PHOS3, PCAL, HEMDF, CRP2, LDH3, BMP3M, TSH5 ####[address] #### CADET25H ####[place] [address] [place] [address] Chloride [Moles/Vol] 106 mmol/L Normal 98-107 [facility] Comment on above: Performed By: #### C ORTL, QTF, DDI2, PT, CK3, ICA, FEIBC, LIPD2, TROPN, LACT3, MG3, FERR3, HA1C2, APTT, BNP3, PHOS3, PCAL, HEMDF, CRP2, LDH3, BMP3M, TSH5 ####[address] #### CADET25H ####[address] [place] [place] [address] Potassium [Moles/Vol] 4.3 mmol/L Normal 3.5-5.1 [facility] Comment on above: Performed By: #### C ORTL, QTF, DDI2, PT, CK3, ICA, FEIBC, LIPD2, TROPN, LACT3, MG3, FERR3, HA1C2, APTT, BNP3, PHOS3, PCAL, HEMDF, CRP2, LDH3, BMP3M, TSH5 ####[address] #### [id number] ####[address] [place] [place] [address] Sodium [Moles/Vol] 140 mmol/L Normal 135-145 [facility] Comment on above: Performed By: #### C ORTL, QTF, DDI2, PT, CK3, ICA, FEIBC, LIPD2, TROPN, LACT3, MG3, FERR3, HA1C2, APTT, BNP3, PHOS3, PCAL, HEMDF, CRP2, LDH3, BMP3M, TSH5 ####[address] #### CADET25H ####[facility] [place] [address] C REACTIVE PROTEINon 021 CRP [Mass/Vol] 181.1 mg/L High 0-10.0 [facility] Comment on above: Performed By: #### P T, CREACT, ESR, CMPF, HH, MG #### Testing performed at [facility] [address] [facility] [address] [facility] [place] [address] C REACTIVE PROTEINOrdered By : Flahs De La Rosa on 06-03-2021 CRP [Mass/Vol] 181.1 mg/L High 0 - 10.0 MG/L [facility] C-Reactive Proteinon 021 CRP [Mass/Vol] 158.7 mg/L High 0.0-6.0 [facility] Comment on above: Result Comment: . Performed By: #### C ORTL, QTF, DDI2, PT, CK3, ICA, FEIBC, LIPD2, TROPN, LACT3, MG3, FERR3, HA1C2, APTT, BNP3, PHOS3, PCAL, HEMDF, CRP2, LDH3, BMP3M, TSH5 ####[facility] [employer] [address] #### CADET25H ####[place] [address] [place] [address] CKon 06-03-2021 CK [Catalytic activity/Vol] 160 U/L Normal 30-170 [facility] Comment on above: Performed By: #### C ORTL, QTF, DDI2, PT, CK3, ICA, FEIBC, LIPD2, TROPN, LACT3, MG3, FERR3, HA1C2, APTT, BNP3, PHOS3, PCAL, HEMDF, CRP2, LDH3, BMP3M, TSH5 ####[facility] [employer] [address] [place], [place] #### OZIEL [id number] ####[place] [address] [place] [address] CMP FASTINGon 06-03-2021 A:G RATIO 0.7 RATIO Low 1.3-2.2 [facility] Comment on above: Performed By: #### P T, CREACT, ESR, CMPF, HH, MG #### Testing performed at [address] [address] ALBUMIN 2.9 G/dl Low 3.5-5.0 [facility] Comment on above: Performed By: #### P T, CREACT, ESR, CMPF, HH, MG #### Testing performed at [address] [address] ALP [Catalytic activity/Vol] 74 U/L Normal 38-126 [facility] Comment on above: Performed By: #### P T, CREACT, ESR, CMPF, HH, MG #### Testing performed at [address] [address] ALT [Catalytic activity/Vol] 37 U/L Normal 14-54 [facility] Comment on above: Performed By: #### P T, CREACT, ESR, CMPF, HH, MG #### Testing performed at [address] [address] AST [Catalytic activity/Vol] 58 U/L High 15-41 [facility] Comment on above: Performed By: #### P T, CREACT, ESR, CMPF, HH, MG #### Testing performed at [address] [address] Bilirubin [Mass/Vol] 0.3 mg/dL Normal 0.2-1.2 [facility] Comment on above: Performed By: #### P T, CREACT, ESR, CMPF, HH, MG #### Testing performed at [address] [address] Calcium [Mass/Vol] 8.2 mg/dL Low 8.4-10.2 [facility] Comment on above: Performed By: #### P T, CREACT, ESR, CMPF, HH, MG #### Testing performed at [address] [address] Chloride [Moles/Vol] 103 mmol/L Normal 98-107 [facility] Comment on above: Performed By: #### P T, CREACT, ESR, CMPF, HH, MG #### Testing performed at [address] [address] CO2 [Moles/Vol] 24 mmol/L Normal 22-30 [facility] Comment on above: Performed By: #### P T, CREACT, ESR, CMPF, HH, MG #### Testing performed at [address] [address] Creatinine [Mass/Vol] 0.71 mg/dL Normal 0.52-1.04 [facility] Comment on above: Performed By: #### P T, CREACT, ESR, CMPF, HH, MG #### Testing performed at [address] [address] EST. GFR, >60 Normal [facility] Comment on above: Performed By: #### P T, CREACT, ESR, CMPF, HH, MG #### Testing performed at [address] [address] EST. GFR,Non >60 Normal [facility] Comment on above: Performed By: #### P T, CREACT, ESR, CMPF, HH, MG #### Testing performed at [address] [address] GFR Information Average GFR for 50-5 9 years old = 93. Normal [facility] Comment on above: Result Comment: Neurosurgery Spine Physician randi Kidney disease, GFR = <60. Kidney failure, GFR = <15. The GFR estimate is not adjusted for extreme body surface area or acute process, nor has it been validated for women or ethnic groups other than and . Performed By: #### P T, CREACT, ESR, CMPF, HH, MG #### Testing performed at [address] [address] Glucose [Mass/Vol] 153 mg/dL High 70-100 [facility] Comment on above: Result Comment: NORMAL <100 mg/dL PREDIABETES 101-126 mg/dL DIABETES 126 mg/dL or higher Performed By: #### P T, CREACT, ESR, CMPF, HH, MG #### Testing performed at [address] [address] Potassium [Moles/Vol] 4.3 mmol/L Normal 3.5-5.1 [facility] Comment on above: Performed By: #### P T, CREACT, ESR, CMPF, HH, MG #### Testing performed at [address] [address] Protein [Mass/Vol] 7.3 g/dL Normal 6.3-8.2 [facility] Comment on above: Performed By: #### P T, CREACT, ESR, CMPF, HH, MG #### Testing performed at [address] [address] Sodium [Moles/Vol] 138 mmol/L Normal 136-145 [facility] Comment on above: Performed By: #### P T, CREACT, ESR, CMPF, HH, MG #### Testing performed at [address] [address] Urea nitrogen [Mass/Vol] 13 mg/dL Normal 7-20 [facility] Comment on above: Performed By: #### P T, CREACT, ESR, CMPF, HH, MG #### Testing performed at [address] [address] COMPREHENSIVE METABOLIC PANE LOrdered By: Flash De La Rosa on 06-03-2021 Albumin [Mass/Vol] 2.9 G/dl Low 3.5 - 5.0 G/dl [facility] Albumin/Globulin [Mass ratio] 0.7 {ratio} Low [facility] ALP [Catalytic activity/Vol] 74 U/L [facility] ALT [Catalytic activity/Vol] 37 U/L [facility] AST [Catalytic activity/Vol] 58 U/L High [facility] Bilirubin [Mass/Vol] 0.3 mg/dL [facility] Calcium [Mass/Vol] 8.2 mg/dL Low [facility] Chloride [Moles/Vol] 103 mmol/L [facility] CO2 [Moles/Vol] 24 mmol/L [facility] Creatinine [Mass/Vol] 0.71 mg/dL [facility] GFR COMMENT Average GFR for 50-5 9 years old = 93. [facility] Comment on above: Chronic Kidney disea se, GFR = <60. Kidney failure, GFR = <15. The GFR estimate is not adjusted for extreme body surface area or acute process, nor has it been validated for women or ethnic groups other than and . GFR/1.73 sq M.predicted among blacks MDRD (S/P/Bld) [Vol rate/Area] mL/min/{1.73_m2} ml/min/1.73s q.m [facility] GFR/1.73 sq M.predicted among non-blacks MDRD (S/P/Bld) [Vol rate/Area] mL/min/{1.73_m2} ml/min/1.73s q.m [facility] Glucose post fast [Mass/Vol] 153 mg/dL High [facility] Comment on above: NORMAL <100 mg/dL PREDIABETES 101-126 mg/dL DIABETES 126 mg/dL or higher Potassium [Moles/Vol] 4.3 mmol/L [facility] Protein [Mass/Vol] 7.3 g/dL [facility] Sodium [Moles/Vol] 138 mmol/L [facility] Urea nitrogen [Mass/Vol] 13 mg/dL [facility] CR Chest Portableon 06-03-20 CR Chest Portable Normal [facility] Calcium,Ionizedon 06-03-2021 Ionized Ca,Measured 3.90 mg/dL Low 4.30-5.20 [facility] Comment on above: Performed By: #### C ORTL, QTF, DDI2, PT, CK3, ICA, FEIBC, LIPD2, TROPN, LACT3, MG3, FERR3, HA1C2, APTT, BNP3, PHOS3, PCAL, HEMDF, CRP2, LDH3, BMP3M, TSH5 ####[facility] [employer] [id number] [place] [address]#### TRFN, [id number] ####[facility] [employer] [address] [place] [address] pH, Ionized Calcium 7.40 Normal 7.31-7.46 [facility] Comment on above: Performed By: #### C ORTL, QTF, DDI2, PT, CK3, ICA, FEIBC, LIPD2, TROPN, LACT3, MG3, FERR3, HA1C2, APTT, BNP3, PHOS3, PCAL, HEMDF, CRP2, LDH3, BMP3M, TSH5 ####[facility] [employer] [address] [place], [place] #### CADET25H ####[facility] [employer] [address] [place] [address] Cortisolon 06-03-2021 Cortisol 4.5 ug/dL Normal [facility] Comment on above: Result Comment: Befo re 10am 4.5-22.7 ug/dLAfter 5pm 1.7-14.1 ug/dL Performed By: #### C ORTL, QTF, DDI2, PT, CK3, ICA, FEIBC, LIPD2, TROPN, LACT3, MG3, FERR3, HA1C2, APTT, BNP3, PHOS3, PCAL, HEMDF, CRP2, LDH3, BMP3M, TSH5 ####[facility] [employer] [address] #### CADET25H ####[facility] [employer] [address] [place] [address] D-Dimer, Innovanceon 021 D-Dimer, Innovance 3.88 mg/L High <0.19-0.50 [facility] Comment on above: Result Comment: Inno carrington [...] PHOS3, PCAL, HEMDF, CRP2, LDH3, BMP3M, TSH5 ####[facility] [employer] [address] #### OZIEL, VD25H ####[facility] [employer] [address] [place] [address] ESRon 06-03-2021 ESR (Bld) [Velocity] 51 mm/h High 0-30 [facility] Comment on above: Performed By: #### U MAC, UMIC #### Testing performed at [address] [address] Ferritinon 06-03-2021 Ferritin [Mass/Vol] 216 ng/mL Normal 8-252 [facility] Comment on above: Performed By: #### C ORTL, QTF, DDI2, PT, CK3, ICA, FEIBC, LIPD2, TROPN, LACT3, MG3, FERR3, HA1C2, APTT, BNP3, PHOS3, PCAL, HEMDF, CRP2, LDH3, BMP3M, TSH5 ####[facility] [place] [address]#### TRFN, VD25H ####[facility] [place] [address] HEMOGLOBIN & HEMATOCRITOrder ed By: Flash De La Rosa on 06-03-2021 Hematocrit (Bld) [Volume fraction] 35.8 % Low 36.0 - 48.0 % [facility] Hemoglobin (Bld) [Mass/Vol] 11.5 g/dL Low [facility] Interpretation and review of laboratory results Abnormal [facility] Hematocrit (Bld) [Volume fraction] 35.6 % Low 36.0 - 48.0 % [facility] Hemoglobin (Bld) [Mass/Vol] 11.3 g/dL Low [facility] Interpretation and review of laboratory results Abnormal [facility] HGB/HCTon 06-03-2021 Hematocrit (Bld) [Volume fraction] 35.8 % Low 36.0-48.0 [facility] Comment on above: Performed By: #### U MAC, UMIC #### Testing performed at [address] [address] Hemoglobin (Bld) [Mass/Vol] 11.5 g/dL Low 12.0-16.0 [facility] Comment on above: Performed By: #### U MAC, UMIC #### Testing performed at [address] [address] Hematocrit (Bld) [Volume fraction] 35.6 % Low 36.0-48.0 [facility] Comment on above: Performed By: #### U MAC, [facility] #### Testing performed at [address] [address] Hemoglobin (Bld) [Mass/Vol] 11.3 g/dL Low 12.0-16.0 [facility] Comment on above: Performed By: #### U MAC, [facility] #### Testing performed at [address] [address] Hemoglobin A1Con 06-03-2021 Glucose [Mass/Vol] 128 mg/dL Normal [facility] Comment on above: Performed By: #### C ORTL, QTF, DDI2, PT, CK3, ICA, FEIBC, LIPD2, TROPN, LACT3, MG3, FERR3, HA1C2, APTT, BNP3, PHOS3, PCAL, HEMDF, CRP2, LDH3, BMP3M, TSH5 ####[facility] [address] [place], [place] #### OZIEL VD25 ####[facility] [place] [address] HbA1c (Bld) [Mass fraction] 6.1 % Abnormal [facility] Comment on above: Result Comment: Norm al less than 5.7%Prediabetes 5.7% to 6.4%Diabetes 6.5% or higher--HgbA1C levels may not be accurate in patients who haverenal disease, received recent blood transfusions, are anemic,or who have dyshemoglobinemia. Performed By: #### C ORTL, QTF, DDI2, PT, CK3, ICA, FEIBC, LIPD2, TROPN, LACT3, MG3, FERR3, HA1C2, APTT, BNP3, PHOS3, PCAL, HEMDF, CRP2, LDH3, BMP3M, TSH5 ####[facility] [place] [address] #### OZIEL VD25H ####[email or web address] [address] [place] [address] Hemogram w/ Autodiffon 06-03 Abs Baso Cnt 0.0 10*3/uL Normal 0.0-0.2 [facility] Comment on above: Performed By: #### C ORTL, QTF, DDI2, PT, CK3, ICA, FEIBC, LIPD2, TROPN, LACT3, MG3, FERR3, HA1C2, APTT, BNP3, PHOS3, PCAL, HEMDF, CRP2, LDH3, BMP3M, TSH5 ####[address] #### OZIEL VD25H ####[address] [place] [address] Abs Neutrophile Cnt 2.4 10*3/uL Normal 1.8-7.0 [facility] Comment on above: Performed By: #### C ORTL, QTF, DDI2, PT, CK3, ICA, FEIBC, LIPD2, TROPN, LACT3, MG3, FERR3, HA1C2, APTT, BNP3, PHOS3, PCAL, HEMDF, CRP2, LDH3, BMP3M, TSH5 ####[address] #### OZIEL VD25H ####[address] [place] [address] Basophils/100 WBC (Bld) 0.1 % Normal 0.0-2.0 [facility] Comment on above: Performed By: #### C ORTL, QTF, DDI2, PT, CK3, ICA, FEIBC, LIPD2, TROPN, LACT3, MG3, FERR3, HA1C2, APTT, BNP3, PHOS3, PCAL, HEMDF, CRP2, LDH3, BMP3M, TSH5 ####[address] #### OZIEL, VD25H ####[address] [place] [address] Eosinophils (Bld) [#/Vol] 0.0 10*3/uL Normal 0.0-0.5 [facility] Comment on above: Performed By: #### C ORTL, QTF, DDI2, PT, CK3, ICA, FEIBC, LIPD2, TROPN, LACT3, MG3, FERR3, HA1C2, APTT, BNP3, PHOS3, PCAL, HEMDF, CRP2, LDH3, BMP3M, TSH5 ####[address] #### CADET25H ####[address] [place] [address] Eosinophils/100 WBC (Bld) 0.0 % Low 1.0-6.0 [facility] Comment on above: Performed By: #### C ORTL, QTF, DDI2, PT, CK3, ICA, FEIBC, LIPD2, TROPN, LACT3, MG3, FERR3, HA1C2, APTT, BNP3, PHOS3, PCAL, HEMDF, CRP2, LDH3, BMP3M, TSH5 ####[address] #### OZIEL VD25H ####[address] [place] [address] Erythrocyte distribution width (RBC) [Ratio] 19.9 % High 11.5-14.5 [facility] Comment on above: Performed By: #### C ORTL, QTF, DDI2, PT, CK3, ICA, FEIBC, LIPD2, TROPN, LACT3, MG3, FERR3, HA1C2, APTT, BNP3, PHOS3, PCAL, HEMDF, CRP2, LDH3, BMP3M, TSH5 ####[address] #### OZIEL VD25H ####[address] [place] [address] Granulocytes/100 WBC (Bld) 80.0 % Normal 40.0-80.0 [facility] Comment on above: Performed By: #### C ORTL, QTF, DDI2, PT, CK3, ICA, FEIBC, LIPD2, TROPN, LACT3, MG3, FERR3, HA1C2, APTT, BNP3, PHOS3, PCAL, HEMDF, CRP2, LDH3, BMP3M, TSH5 ####[address] #### OZIEL, VD25H ####[address] [place] [address] Hematocrit (Bld) [Volume fraction] 37.4 % Normal 35.0-47.0 [facility] Comment on above: Performed By: #### C ORTL, QTF, DDI2, PT, CK3, ICA, FEIBC, LIPD2, TROPN, LACT3, MG3, FERR3, HA1C2, APTT, BNP3, PHOS3, PCAL, HEMDF, CRP2, LDH3, BMP3M, TSH5 ####[address] #### OZIEL, VD25H ####[address] [address] Hemoglobin (Bld) [Mass/Vol] 11.8 g/dL Normal 11.7-16.0 [facility] Comment on above: Performed By: #### C ORTL, QTF, DDI2, PT, CK3, ICA, FEIBC, LIPD2, TROPN, LACT3, MG3, FERR3, HA1C2, APTT, BNP3, PHOS3, PCAL, HEMDF, CRP2, LDH3, BMP3M, TSH5 ####[address] #### OZIEL, VD25H ####[address] [address] Lymphocytes (Bld) [#/Vol] 0.3 10*3/uL Low 1.0-4.3 [facility] Comment on above: Performed By: #### C ORTL, QTF, DDI2, PT, CK3, ICA, FEIBC, LIPD2, TROPN, LACT3, MG3, FERR3, HA1C2, APTT, BNP3, PHOS3, PCAL, HEMDF, CRP2, LDH3, BMP3M, TSH5 ####[address] #### CADET25H ####[address] [place] [address] Lymphocytes/100 WBC (Bld) 10.0 % Low 20.0-40.0 [facility] Comment on above: Performed By: #### C ORTL, QTF, DDI2, PT, CK3, ICA, FEIBC, LIPD2, TROPN, LACT3, MG3, FERR3, HA1C2, APTT, BNP3, PHOS3, PCAL, HEMDF, CRP2, LDH3, BMP3M, TSH5 ####[address] #### CADET25H ####[address] [place] [address] MCH (RBC) [Entitic mass] 22.6 pg Low 26.0-34.0 [facility] Comment on above: Performed By: #### C ORTL, QTF, DDI2, PT, CK3, ICA, FEIBC, LIPD2, TROPN, LACT3, MG3, FERR3, HA1C2, APTT, BNP3, PHOS3, PCAL, HEMDF, CRP2, LDH3, BMP3M, TSH5 ####[address] #### CADET25H ####[address] [place] [address] MCHC 31.6 % Low 32.0-36.0 [facility] Comment on above: Performed By: #### C ORTL, QTF, DDI2, PT, CK3, ICA, FEIBC, LIPD2, TROPN, LACT3, MG3, FERR3, HA1C2, APTT, BNP3, PHOS3, PCAL, HEMDF, CRP2, LDH3, BMP3M, TSH5 ####[address] #### CADET25H ####[facility] [place] [address] MCV (RBC) [Entitic vol] 71.5 fL Low 79.0-98.0 [facility] Comment on above: Performed By: #### C ORTL, QTF, DDI2, PT, CK3, ICA, FEIBC, LIPD2, TROPN, LACT3, MG3, FERR3, HA1C2, APTT, BNP3, PHOS3, PCAL, HEMDF, CRP2, LDH3, BMP3M, TSH5 ####[address] #### OZIEL VD25H ####[address] [place] [address] Monocytes (Bld) [#/Vol] 0.3 10*3/uL Normal 0.0-0.8 [facility] Comment on above: Performed By: #### C ORTL, QTF, DDI2, PT, CK3, ICA, FEIBC, LIPD2, TROPN, LACT3, MG3, FERR3, HA1C2, APTT, BNP3, PHOS3, PCAL, HEMDF, CRP2, LDH3, BMP3M, TSH5 ####[address] #### OZIEL VD25H ####[address] [place] [address] Monocytes/100 WBC (Bld) 9.9 % Normal 2.0-10.0 [facility] Comment on above: Performed By: #### C ORTL, QTF, DDI2, PT, CK3, ICA, FEIBC, LIPD2, TROPN, LACT3, MG3, FERR3, HA1C2, APTT, BNP3, PHOS3, PCAL, HEMDF, CRP2, LDH3, BMP3M, TSH5 ####[address] #### OZIEL VD25H ####[address] [place] [address] Platelet mean volume (Bld) [Entitic vol] 8.5 fL Normal 7.4-10.4 [facility] Comment on above: Performed By: #### C ORTL, QTF, DDI2, PT, CK3, ICA, FEIBC, LIPD2, TROPN, LACT3, MG3, FERR3, HA1C2, APTT, BNP3, PHOS3, PCAL, HEMDF, CRP2, LDH3, BMP3M, TSH5 ####[address] #### OZIEL, VD25H ####[address] [place] [address] Platelets (Bld) [#/Vol] 140 10*3/uL Normal 140-440 [facility] Comment on above: Performed By: #### C ORTL, QTF, DDI2, PT, CK3, ICA, FEIBC, LIPD2, TROPN, LACT3, MG3, FERR3, HA1C2, APTT, BNP3, PHOS3, PCAL, HEMDF, CRP2, LDH3, BMP3M, TSH5 ####[facility] [employer] [address] #### OZIEL, VD25H ####[address] [place] [address] RBC (Bld) [#/Vol] 5.23 10*6/uL High 3.80-5.20 [facility] Comment on above: Performed By: #### C ORTL, QTF, DDI2, PT, CK3, ICA, FEIBC, LIPD2, TROPN, LACT3, MG3, FERR3, HA1C2, APTT, BNP3, PHOS3, PCAL, HEMDF, CRP2, LDH3, BMP3M, TSH5 ####[facility] [employer] [address] #### OZIEL, VD25H ####[address] [place] [address] WBC (Bld) [#/Vol] 3.0 10*3/uL Low 3.6-10.7 [facility] Comment on above: Performed By: #### C ORTL, QTF, DDI2, PT, CK3, ICA, FEIBC, LIPD2, TROPN, LACT3, MG3, FERR3, HA1C2, APTT, BNP3, PHOS3, PCAL, HEMDF, CRP2, LDH3, BMP3M, TSH5 ####[address] #### OZIEL VD25H ####[address] [place] [address] Iron AND TIBCon 06-03-2021 Saturation 7 % Low 15-50 [facility] Comment on above: Performed By: #### C ORTL, QTF, DDI2, PT, CK3, ICA, FEIBC, LIPD2, TROPN, LACT3, MG3, FERR3, HA1C2, APTT, BNP3, PHOS3, PCAL, HEMDF, CRP2, LDH3, BMP3M, TSH5 ####[address] #### OZIEL VD25H ####[address] [place] [address] Total Iron Binding Cap. 338 ug/dL Normal 261-497 [facility] Comment on above: Performed By: #### C ORTL, QTF, DDI2, PT, CK3, ICA, FEIBC, LIPD2, TROPN, LACT3, MG3, FERR3, HA1C2, APTT, BNP3, PHOS3, PCAL, HEMDF, CRP2, LDH3, BMP3M, TSH5 ####[address] #### TRCINDY, VD25H ####[address] [place] [address] Iron, Total 24 ug/dL Low 37-170 [facility] Comment on above: Performed By: #### C ORTL, QTF, DDI2, PT, CK3, ICA, FEIBC, LIPD2, TROPN, LACT3, MG3, FERR3, HA1C2, APTT, BNP3, PHOS3, PCAL, HEMDF, CRP2, LDH3, BMP3M, TSH5 ####[address] [place] [address]#### OZIEL VD25H ####[address] [place] [address] LACTATE, BLOODOrdered By: Jarrett on 06-03-2021 Lactate [Moles/Vol] 0.9 mmol/L [facility] Lactate [Moles/Vol] 1.1 mmol/L [facility] LACTIC ACIDon 06-03-2021 Lactate [Moles/Vol] 0.9 mmol/L Normal 0.5-2.0 [facility] Comment on above: Performed By: #### U MAC, [facility] #### Testing performed at [address] [address] Lactate [Moles/Vol] 1.1 mmol/L Normal 0.5-2.0 [facility] Comment on above: Performed By: #### C OVID #### Testing performed at [address] [address] LDHon 06-03-2021 LDH 601 U/L High 120-246 [facility] Comment on above: Performed By: #### C ORTL, QTF, DDI2, PT, CK3, ICA, FEIBC, LIPD2, TROPN, LACT3, MG3, FERR3, HA1C2, APTT, BNP3, PHOS3, PCAL, HEMDF, CRP2, LDH3, BMP3M, TSH5 ####[address] #### OZIEL VD25H ####[facility] [place] [address] Lactic Acidon 06-03-2021 Lactate [Moles/Vol] 0.8 mmol/L Normal 0.7-2.0 [facility] Comment on above: Performed By: #### C ORTL, QTF, DDI2, PT, CK3, ICA, FEIBC, LIPD2, TROPN, LACT3, MG3, FERR3, HA1C2, APTT, BNP3, PHOS3, PCAL, HEMDF, CRP2, LDH3, BMP3M, TSH5 ####[address] #### OZIEL VD25H ####[address] [place] [address] Lipid Panelon 06-03-2021 Chol/HDL 5 Normal [facility] Comment on above: Result Comment: Ref Range:< 3 Low Risk for CHD3-6 Mod Risk for CHD> 6 High Risk for CHD Performed By: #### C ORTL, QTF, DDI2, PT, CK3, ICA, FEIBC, LIPD2, TROPN, LACT3, MG3, FERR3, HA1C2, APTT, BNP3, PHOS3, PCAL, HEMDF, CRP2, LDH3, BMP3M, TSH5 ####[address] #### OZIEL VD25H ####[address] [place] [address] Cholesterol in HDL [Mass/Vol] 26 mg/dL Low 40-60 [facility] Comment on above: Performed By: #### C ORTL, QTF, DDI2, PT, CK3, ICA, FEIBC, LIPD2, TROPN, LACT3, MG3, FERR3, HA1C2, APTT, BNP3, PHOS3, PCAL, HEMDF, CRP2, LDH3, BMP3M, TSH5 ####[address] #### OZIEL VD25H ####[address] [place] [address] Low Density Lipoprotein 80 mg/dL Normal <100 [facility] Comment on above: Performed By: #### C ORTL, QTF, DDI2, PT, CK3, ICA, FEIBC, LIPD2, TROPN, LACT3, MG3, FERR3, HA1C2, APTT, BNP3, PHOS3, PCAL, HEMDF, CRP2, LDH3, BMP3M, TSH5 ####[address] #### OZIEL, VD25H ####[facility] [place] [address] Triglyceride [Mass/Vol] 90 mg/dL Normal <150 [facility] Comment on above: Performed By: #### C ORTL, QTF, DDI2, PT, CK3, ICA, FEIBC, LIPD2, TROPN, LACT3, MG3, FERR3, HA1C2, APTT, BNP3, PHOS3, PCAL, HEMDF, CRP2, LDH3, BMP3M, TSH5 ####[address] #### OZIEL, VD25H ####[address] [place] [address] Cholesterol [Mass/Vol] 124 mg/dL Normal < 200 [facility] Comment on above: Performed By: #### C ORTL, QTF, DDI2, PT, CK3, ICA, FEIBC, LIPD2, TROPN, LACT3, MG3, FERR3, HA1C2, APTT, BNP3, PHOS3, PCAL, HEMDF, CRP2, LDH3, BMP3M, TSH5 ####[address] #### OZIEL, VD25H ####[address] [place] [address] MAGNESIUMon 06-03-2021 Magnesium [Mass/Vol] 2.1 mg/dL Normal 1.6-2.3 [facility] Comment on above: Performed By: #### U JIMENEZ, [facility] #### [place] [address] MAGNESIUMOrdered By: Flash De La Rosa on 06-03-2021 Magnesium [Mass/Vol] 2.1 mg/dL [facility] Magnesiumon 06-03-2021 Magnesium [Mass/Vol] 2.2 mg/dL Normal 1.6-2.3 [facility] Comment on above: Performed By: #### C ORTL, QTF, DDI2, PT, CK3, ICA, FEIBC, LIPD2, TROPN, LACT3, MG3, FERR3, HA1C2, APTT, BNP3, PHOS3, PCAL, HEMDF, CRP2, LDH3, BMP3M, TSH5 ####[address] [id number]#### TRFN, [id number] ####[facility] [employer] [id number] [place] [address] NT pro BNPon 06-03-2021 Natriuretic peptide B (Bld) [Mass/Vol] 1248 pg/mL High 0-125 [facility] Comment on above: Performed By: #### C ORTL, QTF, DDI2, PT, CK3, ICA, FEIBC, LIPD2, TROPN, LACT3, MG3, FERR3, HA1C2, APTT, BNP3, PHOS3, PCAL, HEMDF, CRP2, LDH3, BMP3M, TSH5 ####[address] #### TRCINDY, VD25H ####[facility] [employer] [id number] [place] [address] No Panel InformationOrdered By: Flash De La Rosa on 06-03-2021 Interpretation and review of laboratory results Abnormal [facility] PROTIMEon 06-03-2021 INR Coag (PPP) [Relative time] 1.01 {INR} Normal 0.85-1.10 [facility] Comment on above: Result Comment: 2.0-3.0 THERAPEUTIC RANGE 2.5-3.5 MECHANICAL VALVE RANGE Performed By: #### P T, CREACT, ESR, CMPF, HH, MG #### [place] [address] PT Coag (PPP) [Time] 13.5 s Normal 11.8-14.4 [facility] Comment on above: Performed By: #### P T, CREACT, ESR, CMPF, HH, MG #### [place] [address] PROTIME-INROrdered By: Elizabeth De La Rosa on 06-03-2021 INR Coag (PPP) [Relative time] 1.01 {INR} [facility] Comment on above: 2.0-3.0 THERAPEUTIC RANGE 2.5-3.5 MECHANICAL VALVE RANGE PT Coag (PPP) [Time] 13.5 s [facility] Phosphoruson 06-03-2021 Phosphate [Mass/Vol] 3.3 mg/dL Normal 2.5-4.5 [facility] Comment on above: Performed By: #### C ORTL, QTF, DDI2, PT, CK3, ICA, FEIBC, LIPD2, TROPN, LACT3, MG3, FERR3, HA1C2, APTT, BNP3, PHOS3, PCAL, HEMDF, CRP2, LDH3, BMP3M, TSH5 ####[address] #### OZIEL [id number] ####[address] [place] [address] Procalcitoninon 06-03-2021 Procalcitonin 0.07 ng/mL Normal 0.00-0.09 [facility] Comment on above: Performed By: #### C ORTL, QTF, DDI2, PT, CK3, ICA, FEIBC, LIPD2, TROPN, LACT3, MG3, FERR3, HA1C2, APTT, BNP3, PHOS3, PCAL, HEMDF, CRP2, LDH3, BMP3M, TSH5 ####[address] #### TRFN, [id number] ####[address] [place] [address] Interpretation See Below Normal [facility] Comment on above: Result Comment: PCT <0.50 = Low risk of severe sepsis and/or septic shock.PCT >2.00 = High risk of severe sepsis and/or septic shock. Performed By: #### C ORTL, QTF, DDI2, PT, CK3, ICA, FEIBC, LIPD2, TROPN, LACT3, MG3, FERR3, HA1C2, APTT, BNP3, PHOS3, PCAL, HEMDF, CRP2, LDH3, BMP3M, TSH5 ####[address] #### OZIEL [id number] ####[address] [address] Prothrombin Timeon 1 INR 1.0 Normal 0.9-1.1 [facility] Comment on above: Result Comment: Nadeem mmended [...] PHOS3, PCAL, HEMDF, CRP2, LDH3, BMP3M, TSH5 ####[address] #### [id number] ####[address] [address] PT Coag (PPP) [Time] 10.8 s Normal 9.0-12.0 [facility] Comment on above: Result Comment: . Performed By: #### C ORTL, QTF, DDI2, PT, CK3, ICA, FEIBC, LIPD2, TROPN, LACT3, MG3, FERR3, HA1C2, APTT, BNP3, PHOS3, PCAL, HEMDF, CRP2, LDH3, BMP3M, TSH5 ####[address] [id number]#### OZIEL [id number] ####[address] [address] SEDIMENTATION RATE, AUTOMATE DOrdered By: Flash De La Rosa on 06-03-2021 ESR (Bld) [Velocity] 51 mm/h [facility] Interpretation and review of laboratory results Abnormal [facility] Staph Aureus Complete Nasalo n 06-03-2021 Staph Aureus Complete Nasal Normal [facility] Comment on above: Performed By: #### S APCR ####[facility] [employer] [address] Thyroid Stim. Hormoneon Thyroid Stim. Hormone 0.869 u[IU]/mL Normal 0.465-4.68 0 [facility] Comment on above: Performed By: #### C ORTL, QTF, DDI2, PT, CK3, ICA, FEIBC, LIPD2, TROPN, LACT3, MG3, FERR3, HA1C2, APTT, BNP3, PHOS3, PCAL, HEMDF, CRP2, LDH3, BMP3M, TSH5 ####[facility] [id number] [place] [address] #### TRFN, [id number] ####[facility] [employer] [id number] [place] [address] Troponin Ion 06-03-2021 Troponin I.cardiac [Mass/Vol] ng/mL Normal 0.000-0.034 [facility] Comment on above: Result Comment: . Performed By: #### T ROPN ####[facility] [employer] [address] Troponin I.cardiac [Mass/Vol] ng/mL Normal 0.000-0.034 [facility] Comment on above: Result Comment: . Performed By: #### C ORTL, QTF, DDI2, PT, CK3, ICA, FEIBC, LIPD2, TROPN, LACT3, MG3, FERR3, HA1C2, APTT, BNP3, PHOS3, PCAL, HEMDF, CRP2, LDH3, BMP3M, TSH5 ####[facility] [place] [address] #### TRFN, [id number] ####[facility] [place] [address] 25 0H VITAMIN D LEVELon 07-0 25 0H VITAMIN D LEVEL 27.7 NG/ML Low >30 [facility] Comment on above: Result Comment: DEFICIENT <20 NG/ML INSUFFICIENT 20-<30 NG/ML SUFFICIENT 30-100 NG/ML POTENTIAL TOXICITY >100 NG/ML Performed By: #### U MAC, UMIC #### Testing performed at [address] [place] [address] ARTERIAL BLOOD GASon 021 KAROLYN'S TEST Positive Normal [facility] Comment on above: Performed By: #### U MAC, UMIC #### Testing performed at [address] [address] BASE EXCESS 0.9 mEq/L Normal 0-2 [facility] Comment on above: Performed By: #### U MAC, UMIC #### Testing performed at [address] [place] [address] cHCO3 (P,ST)C 24.3 mEq/L Normal 22-26 [facility] Comment on above: Performed By: #### U MAC, UMIC #### Testing performed at [address] [place] [address] ctCO2 (B)c 22.1 Vol% [facility] Comment on above: Performed By: #### U MAC, UMIC #### Testing performed at [address] [address] ctHb 10.8 g/dl Normal [facility] Comment on above: Performed By: #### U MAC, UMIC #### Testing performed at [address] [place] [address] FCOHb 1.8 % Normal [facility] Comment on above: Performed By: #### U MAC, UMIC #### Testing performed at [address] [place] [address] FMetHb 0.0 % [facility] Comment on above: Performed By: #### U MAC, UMIC #### Testing performed at [address] [place] [address] FO2Hb 94.8 % [facility] Comment on above: Performed By: #### U MAC, UMIC #### Testing performed at [address] [address] NOTES: BIPAP 14/8 RATE 14 [facility] Comment on above: Performed By: #### U MAC, UMIC #### Testing performed at [address] [address] PATIENT DIAGNOSIS COVID Normal [facility] Comment on above: Performed By: #### U MAC, UMIC #### Testing performed at [address] [address] PATIENT O2 SETTINGS 15L [facility] Comment on above: Performed By: #### U MAC, UMIC #### Testing performed at [address] [address] pCO2, arterial 35.8 mmHg Normal 35-45 [facility] Comment on above: Performed By: #### U MAC, UMIC #### Testing performed at [address] [address] pH, arterial 7.450 Normal 7.350-7.450 [facility] Comment on above: Performed By: #### U MAC, UMIC #### Testing performed at [address] [address] pO2,arterial 79.0 mmHg Low 80-100 [facility] Comment on above: Performed By: #### U MAC, UMIC #### Testing performed at [address] [address] SAMPLE SITE LEFT RADIAL Normal [facility] Comment on above: Performed By: #### U MAC, UMIC #### Testing performed at [address] [address] sO2,arterial 96.5 % Normal 95-100 [facility] Comment on above: Performed By: #### U MAC, UMIC #### Testing performed at [address] [address] B TYPE NATRIURETIC PEPTIDEon 06-02-2021 Natriuretic peptide B (Bld) [Mass/Vol] 123 pg/mL [facility] Comment on above: Result Comment: Test ing performed at [place] [address] Performed By: #### U MAC, UMIC #### Testing performed at [address] [address] B-TYPE NATRIURETIC PEPTIDE ( BRAIN)Ordered By: Flash De La Rosa on 06-02-2021 Natriuretic peptide B (Bld) [Mass/Vol] 123 pg/mL [facility] Comment on above: Testing performed at [address] B12 & FOLATEOrdered By: Jb De La Rosa on 06-02-2021 Cobalamin (Vitamin B12) [Mass/Vol] 537 pg/mL 180 - 914 PG/ML [facility] Folate [Mass/Vol] 16.0 ng/mL >5.9 NG/ML [facility] B12 FOLATEon 06-02-2021 Cobalamin (Vitamin B12) [Mass/Vol] 537 pg/mL Normal 180-914 [facility] Comment on above: Performed By: #### U MAC, UMIC #### Testing performed at [address] [address] FOLATE 16.0 NG/ML Normal >5.9 [facility] Comment on above: Performed By: #### U MAC, UMIC #### Testing performed at [address] [address] BLOOD CULTUREon 06-02-2021 Bacteria identified Cx Nom (Bld) SPECIMEN DESCRIPTION PERIPHERAL BLOOD DRAW CULTURE NO GROWTH 5 DAYS * Result Note: Testing performed at [place] [address] * REPORT STATUS 06/08/2021 * Result Note: FINAL * Normal [facility] Comment on above: Performed By: #### U MAC, UMIC #### Testing performed at [address] [address] Bacteria identified Cx Nom (Bld) SPECIMEN DESCRIPTION PERIPHERAL BLOOD DRAW CULTURE NO GROWTH 5 DAYS * Result Note: Testing performed at [place] [address] * REPORT STATUS 06/08/2021 * Result Note: FINAL * Normal [facility] Comment on above: Performed By: #### B LC #### Testing performed at [address] [address] Testing performed at [address] [address] BLOOD GAS, ARTERIALOrdered B y: Flash De La Rosa on 06-02-2021 Arterial patency Wrist artery --pre arterial puncture Positive [facility] Base excess Calc (BldV) [Moles/Vol] 0.9 mmol/L [facility] Carbon dioxide/Gas.total.at end expiration in Exhaled gas 22.1 Vol% [facility] Carboxyhemoglobin (Bld) [Mass fraction] 1.8 % [facility] CO2 (Bld) [Partial pressure] 35.8 mm[Hg] [facility] Diagnosis Narrative COVID [facility] HCO3 (Bld) [Moles/Vol] 24.3 mmol/L [facility] Hemoglobin (Bld) [Mass/Vol] 10.8 g/dL [facility] Interpretation and review of laboratory results Abnormal [facility] Methemoglobin (BldC) [Mass fraction] 0.0 % [facility] NOTE BIPAP 14/8 RATE 14 [facility] Oxygen (Bld) [Partial pressure] 15L [facility] Oxygen (Bld) [Partial pressure] 79.0 mm[Hg] Low [facility] Oxyhemoglobin (Bld) [Mass fraction] 94.8 % [facility] pH (Bld) 7.450 [pH] [facility] Specimen site Narrative LEFT RADIAL [facility] C REACTIVE PROTEINon 021 CRP [Mass/Vol] 143.1 mg/L High 0-10.0 [facility] Comment on above: Performed By: #### C OVID #### Testing performed at [address] [address] C REACTIVE PROTEINOrdered By : Nawaf Dalton on 06-02-2021 CRP [Mass/Vol] 143.1 mg/L High 0 - 10.0 MG/L [facility] CBCon 06-02-2021 DTYPE MANUAL DIFF Normal [facility] Comment on above: Performed By: #### U JIMENEZ UMIC #### Testing performed at [address] [address] Lymphocytes/100 WBC (Bld) 35 % Normal 20.0-55.0 [facility] Comment on above: Performed By: #### U MAC, UMIC #### Testing performed at [address] [address] Monocytes/100 WBC (Bld) 3 % Normal 0.0-10.0 [facility] Comment on above: Performed By: #### U MAC, UMIC #### Testing performed at [address] [address] Neutrophils/100 WBC (Bld) 62 % Normal 37.0-75.0 [facility] Comment on above: Performed By: #### U MAC, UMIC #### Testing performed at [address] [address] PLATELET COMMENT DECREASED Normal [facility] Comment on above: Performed By: #### U MAC, UMIC #### Testing performed at [address] [address] RBC morphology finding Nom (Bld) 2+ Normal [facility] Comment on above: Result Comment: MICR OCYTOSIS 1+ ANISOCYTE Performed By: #### U MAC, UMIC #### Testing performed at [address] [address] Erythrocyte distribution width (RBC) [Ratio] 20.4 % High 11.5-14.5 [facility] Comment on above: Performed By: #### U MAC, UMIC #### Testing performed at [address] [address] Hematocrit (Bld) [Volume fraction] 34.4 % Low 36.0-48.0 [facility] Comment on above: Performed By: #### U MAC, UMIC #### Testing performed at [address] [address] Hemoglobin (Bld) [Mass/Vol] 11.1 g/dL Low 12.0-16.0 [facility] Comment on above: Performed By: #### U MAC, UMIC #### Testing performed at [address] [address] MCH (RBC) [Entitic mass] 22.5 pg Low 26.0-35.0 [facility] Comment on above: Performed By: #### U MAC, UMIC #### Testing performed at [address] [address] MCHC (RBC) [Mass/Vol] 32.1 g/dL Normal 27.0-37.0 [facility] Comment on above: Performed By: #### U MAC, UMIC #### Testing performed at [address] [address] MCV (RBC) [Entitic vol] 69.9 fL Low 80.0-100.0 [facility] Comment on above: Performed By: #### U MAC, UMIC #### Testing performed at [address] [address] Platelet mean volume (Bld) [Entitic vol] 8.5 fL Normal 7.4-11.0 [facility] Comment on above: Performed By: #### U MAC, UMIC #### Testing performed at [address] [address] Platelets (Bld) [#/Vol] 125 10*3/uL Low 130.0-400.0 [facility] Comment on above: Performed By: #### U MAC, UMIC #### Testing performed at [address] [address] RBC (Bld) [#/Vol] 4.93 10*6/uL Normal 4.0-5.4 [facility] Comment on above: Performed By: #### U MAC, UMIC #### Testing performed at [address] [address] WBC (Bld) [#/Vol] 2.3 10*3/uL Low 3.6-11.0 [facility] Comment on above: Performed By: #### U MAC, UMIC #### Testing performed at [address] [address] CBC, EDIF, PLATELETOrdered B y: Nawaf Castellanoswilmersolis on 06-02-2021 Differential cell count method Nom (Bld) MANUAL DIFF % [facility] Erythrocyte distribution width (RBC) [Ratio] 20.4 % High 11.5 - 14.5 % [facility] Hematocrit (Bld) [Volume fraction] 34.4 % Low 36.0 - 48.0 % [facility] Hemoglobin (Bld) [Mass/Vol] 11.1 g/dL Low [facility] Interpretation and review of laboratory results Abnormal [facility] Lymphocytes/100 WBC (Bld) 35 % 20.0 - 55.0 % [facility] MCH (RBC) [Entitic mass] 22.5 pg Low 26.0 - 35.0 PG [facility] MCHC (RBC) [Mass/Vol] 32.1 g/dL [facility] MCV (RBC) [Entitic vol] 69.9 fL Low [facility] Monocytes/100 WBC (Bld) 3 % 0.0 - 10.0 % [facility] Morphology Terry (Bld) [Interp] 2+ [facility] Comment on above: MICROCYTOSIS 1+ ANISOCYTE Neutrophils/100 WBC (Bld) 62 % 37.0 - 75.0 % [facility] Platelet mean volume (Bld) [Entitic vol] 8.5 fL [facility] Platelet morphology finding Nom (Bld) DECREASED [facility] Platelets (Bld) [#/Vol] 125 10*3/uL Low 130.0 - 400.0 10*3/uL [facility] RBC (Bld) [#/Vol] 4.93 10*6/uL 4.0 - 5.4 10*6/uL [facility] WBC (Bld) [#/Vol] 2.3 10*3/uL Low 3.6 - 11.0 10*3/uL [facility] CMP FASTINGon 06-02-2021 A:G RATIO 0.7 RATIO Low 1.3-2.2 [facility] Comment on above: Performed By: #### U MAC, UMIC #### Testing performed at [address] [address] ALBUMIN 3.1 G/dl Low 3.5-5.0 [facility] Comment on above: Performed By: #### U MAC, UMIC #### Testing performed at [address] [address] ALP [Catalytic activity/Vol] 79 U/L Normal 38-126 [facility] Comment on above: Performed By: #### U MAC, UMIC #### Testing performed at [address] [address] ALT [Catalytic activity/Vol] 34 U/L Normal 14-54 [facility] Comment on above: Performed By: #### U MAC, UMIC #### Testing performed at [address] [address] AST [Catalytic activity/Vol] 58 U/L High 15-41 [facility] Comment on above: Performed By: #### U MAC, UMIC #### Testing performed at [address] [address] Bilirubin [Mass/Vol] 0.5 mg/dL Normal 0.2-1.2 [facility] Comment on above: Performed By: #### U MAC, UMIC #### Testing performed at [address] [address] Creatinine [Mass/Vol] 0.95 mg/dL Normal 0.52-1.04 [facility] Comment on above: Performed By: #### U MAC, UMIC #### Testing performed at [address] [address] EST. GFR, >60 Normal [facility] Comment on above: Performed By: #### U MAC, UMIC #### Testing performed at [address] [address] EST. GFR,Non >60 Normal [facility] Comment on above: Performed By: #### U MAC, UMIC #### Testing performed at [address] [address] GFR Information Average GFR for 50-5 9 years old = 93. Normal [facility] Comment on above: Result Comment: Neurosurgery Spine Physician randi Kidney disease, GFR = <60. Kidney failure, GFR = <15. The GFR estimate is not adjusted for extreme body surface area or acute process, nor has it been validated for women or ethnic groups other than and . Performed By: #### U MAC, UMIC #### Testing performed at [address] [address] Protein [Mass/Vol] 7.4 g/dL Normal 6.3-8.2 [facility] Comment on above: Performed By: #### U MAC, UMIC #### Testing performed at [address] [address] Urea nitrogen [Mass/Vol] 13 mg/dL Normal 7-20 [facility] Comment on above: Performed By: #### U MAC, UMIC #### Testing performed at [address] [address] Calcium [Mass/Vol] 8.2 mg/dL Low 8.4-10.2 [facility] Comment on above: Performed By: #### U MAC, UMIC #### Testing performed at [address] [address] Chloride [Moles/Vol] 98 mmol/L Normal 98-107 [facility] Comment on above: Performed By: #### U MAC, UMIC #### Testing performed at [address] [address] CO2 [Moles/Vol] 25 mmol/L Normal 22-30 [facility] Comment on above: Performed By: #### U MAC, UMIC #### Testing performed at [address] [address] Glucose [Mass/Vol] 109 mg/dL High 70-100 [facility] Comment on above: Result Comment: NORMAL <100 mg/dL PREDIABETES 101-126 mg/dL DIABETES 126 mg/dL or higher Performed By: #### U MAC, UMIC #### Testing performed at [address] [address] Potassium [Moles/Vol] 4.2 mmol/L Normal 3.5-5.1 [facility] Comment on above: Performed By: #### U MAC, UMIC #### Testing performed at [address] [address] Sodium [Moles/Vol] 133 mmol/L Low 136-145 [facility] Comment on above: Performed By: #### U MAC, UMIC #### Testing performed at [address] [address] COMPREHENSIVE METABOLIC PANE LOrdered By: Nawaf Dalton on 06-02-2021 Albumin [Mass/Vol] 3.1 G/dl Low 3.5 - 5.0 G/dl [facility] Albumin/Globulin [Mass ratio] 0.7 {ratio} Low [facility] ALP [Catalytic activity/Vol] 79 U/L [facility] ALT [Catalytic activity/Vol] 34 U/L [facility] AST [Catalytic activity/Vol] 58 U/L High [facility] Bilirubin [Mass/Vol] 0.5 mg/dL [facility] Calcium [Mass/Vol] 8.2 mg/dL Low [facility] Chloride [Moles/Vol] 98 mmol/L [facility] CO2 [Moles/Vol] 25 mmol/L [facility] Creatinine [Mass/Vol] 0.95 mg/dL [facility] GFR COMMENT Average GFR for 50-5 9 years old = 93. [facility] Comment on above: Chronic Kidney disea se, GFR = <60. Kidney failure, GFR = <15. The GFR estimate is not adjusted for extreme body surface area or acute process, nor has it been validated for women or ethnic groups other than and . GFR/1.73 sq M.predicted among blacks MDRD (S/P/Bld) [Vol rate/Area] mL/min/{1.73_m2} ml/min/1.73s q.m [facility] GFR/1.73 sq M.predicted among non-blacks MDRD (S/P/Bld) [Vol rate/Area] mL/min/{1.73_m2} ml/min/1.73s q.m [facility] Glucose post fast [Mass/Vol] 109 mg/dL High [facility] Comment on above: NORMAL <100 mg/dL PREDIABETES 101-126 mg/dL DIABETES 126 mg/dL or higher Potassium [Moles/Vol] 4.2 mmol/L [facility] Protein [Mass/Vol] 7.4 g/dL [facility] Sodium [Moles/Vol] 133 mmol/L Low [facility] Urea nitrogen [Mass/Vol] 13 mg/dL [facility] CT PE STUDYon 06-02-2021 CT PE [...] AI TECHNOLOGY: This study was processed using [employer]. No prior found. Current Lung [...] lungs compatible with multifocal viral pneumonia. Normal [facility] CT PE STUDYOrdered By: Nawaf Dalton on 06-02-2021 IMPRESSION: 1. Poor contrast opacification of the pulmonary arteries is essentially nondiagnostic for pulmonary embolism. Enlargement of the main pulmonary artery suggests pulmonary arterial hypertension. 2. Cardiomegaly. 3. Extensive scattered airspace opacities throughout both lungs compatible with multifocal viral pneumonia. [facility] EXAMINATION: CT PE S TUDY HISTORY: [...] AI TECHNOLOGY: This study was processed using [employer]. No prior found. Current Lung [...] the visualized portions of the upper abdomen. [facility] User, Interfaces - 06/02/2021 1:25 PM [...] AI TECHNOLOGY: This study was processed using [employer]. No prior found. Current Lung Volume: [...] both lungs compatible with multifocal viral pneumonia. [facility] ESRon 06-02-2021 ESR (Bld) [Velocity] 121 mm/h High 0-30 [facility] Comment on above: Performed By: #### C OVID #### Testing performed at [facility] [address] [place] [address] FERRITINon 06-02-2021 Ferritin [Mass/Vol] 139 ng/mL Normal 11.0-306.8 [facility] Comment on above: Result Comment: DIONNA ENOPAUSAL FEMALES 6.9-282.5 POSTMENOPAUSAL FEMALES 14.0-233.1 Performed By: #### U [employer] [facility] [employer], UMIC #### Testing performed at [address] [address] FERRITINOrdered By: Flash london on 06-02-2021 Ferritin [Mass/Vol] 139 ng/mL [facility] Comment on above: PREMENOPAUSAL FEMALE S 6.9-282.5 POSTMENOPAUSAL FEMALES 14.0-233.1 HEMOGLOBIN & HEMATOCRITOrder ed By: Flash De La Rosa on 06-02-2021 Hematocrit (Bld) [Volume fraction] 34.3 % Low 36.0 - 48.0 % [facility] Hemoglobin (Bld) [Mass/Vol] 11.0 g/dL Low [facility] Interpretation and review of laboratory results Abnormal [facility] Hematocrit (Bld) [Volume fraction] 34.4 % Low 36.0 - 48.0 % [facility] Hemoglobin (Bld) [Mass/Vol] 11.1 g/dL Low [facility] Interpretation and review of laboratory results Abnormal [facility] HEPATIC FUNCTION PANELOrdere d By: Guilherme Naranjo on 06-02-2021 Albumin [Mass/Vol] 2.9 g/dL Low [facility] ALP [Catalytic activity/Vol] 79 U/L [facility] ALT [Catalytic activity/Vol] 32 U/L [facility] AST [Catalytic activity/Vol] 58 U/L High [facility] Bilirubin [Mass/Vol] 0.5 mg/dL [facility] Bilirubin.direct [Mass/Vol] 0.1 mg/dL [facility] Interpretation and review of laboratory results Abnormal [facility] Protein [Mass/Vol] 6.6 g/dL [facility] HGB/HCTon 06-02-2021 Hematocrit (Bld) [Volume fraction] 34.3 % Low 36.0-48.0 [facility] Comment on above: Performed By: #### U MAC, UMIC #### Testing performed at [address] [address] Hemoglobin (Bld) [Mass/Vol] 11.0 g/dL Low 12.0-16.0 [facility] Comment on above: Performed By: #### U MAC, UMIC #### Testing performed at [address] [address] Hematocrit (Bld) [Volume fraction] 34.4 % Low 36.0-48.0 [facility] [facility] Comment on above: Performed By: #### U MAC, UMIC #### Testing performed at [address] [address] Hemoglobin (Bld) [Mass/Vol] 11.1 g/dL Low 12.0-16.0 [facility] Comment on above: Performed By: #### U MAC, UMIC #### Testing performed at [address] [address] IRON PROFILEon 06-02-2021 Iron [Mass/Vol] 12 ug/dL Low 37-170 [facility] Comment on above: Performed By: #### U MAC, UMIC #### Testing performed at [address] [address] IRON BINDING 378 UG/DL Normal 250-450 [facility] Comment on above: Performed By: #### U MAC, UMIC #### Testing performed at [address] [address] TRANSFERRIN SATURATION,CALCULATED 3 % Normal [facility] Comment on above: Performed By: #### U MAC, UMIC #### Testing performed at [address] [address] IRON/IRON BINDING/TRANSFERRI NOrdered By: Flash De La Rosa on 06-02-2021 Interpretation and review of laboratory results Abnormal [facility] Iron [Mass/Vol] 12 ug/dL Low [facility] Iron binding capacity [Mass/Vol] 378 [facility] Iron saturation [Mass fraction] 3 % [facility] L PNEUMOPHILIA AG URINEon L PNEUMOPHILIA AG URINE Negative Normal NEGATIVE [facility] Comment on above: Performed By: #### S CYNTHIA EVANS #### Testing performed at [address] [address] LACTATE, BLOODOrdered By: Jarrett on 06-02-2021 Lactate [Moles/Vol] 0.8 mmol/L [facility] LACTIC ACIDon 06-02-2021 Lactate [Moles/Vol] 0.8 mmol/L Normal 0.5-2.0 [facility] Comment on above: Performed By: #### C OVID #### Testing performed at [address] [address] LEGIONELLA URINARY AGOrdered By: Flash De La Rosa on 06-02-2021 L. pneumophila 1 Ag IA Ql (U) Negative NEGATIVE [facility] LIVER PANELon 06-02-2021 Albumin [Mass/Vol] 2.9 g/dL Low 3.5-5.0 [facility] Comment on above: Performed By: #### C OVID #### Testing performed at [address] [address] ALP [Catalytic activity/Vol] 79 U/L Normal 38-126 [facility] Comment on above: Performed By: #### C OVID #### Testing performed at [address] [address] ALT [Catalytic activity/Vol] 32 U/L Normal 14-54 [facility] Comment on above: Performed By: #### C OVID #### Testing performed at [address] [address] AST [Catalytic activity/Vol] 58 U/L High 15-41 [facility] Comment on above: Performed By: #### C OVID #### Testing performed at [address] [address] Bilirubin [Mass/Vol] 0.5 mg/dL Normal 0.2-1.2 [facility] Comment on above: Performed By: #### C OVID #### Testing performed at [address] [address] Bilirubin.indirect [Mass/Vol] 0.1 mg/dL Normal 0.0-0.2 [facility] Comment on above: Performed By: #### C OVID #### Testing performed at [address] [address] Protein [Mass/Vol] 6.6 g/dL Normal 6.3-8.2 [facility] Comment on above: Performed By: #### C OVID #### Testing performed at [address] [address] MRSA SCREENon 06-02-2021 MRSA DNA CHANTELL+probe Ql (Unsp spec) Not detected Normal NOT DETECTED [facility] Comment on above: Performed By: #### U MAC, UMIC #### Testing performed at [address] [address] STAPH AUREUS SCREEN Detected Abnormal NOT DETECTED [facility] Comment on above: Performed By: #### U MAC, UMIC #### Testing performed at [address] [address] NOVEL CORONAVIRUSon 06-02-20 21 NARRATIVE This test was perfor med using isothermal CHANTELL and has been approved as Emergency Use Authorization (EUA) for the qualitative detection [id number] nucleic acid. Normal [facility] Comment on above: Performed By: #### C OVID #### Testing performed at [place] [id number] SARS-CoV-2 (COVID-19) RNA CHANTELL+probe Ql (Unsp spec) Detected Abnormal NOT DETECTED [facility] Comment on above: Result Comment: ENHA NCED CONTACT, AND DROPLET ISOLATION IS REQUIRED FOR INPATIENTS WITH SARS-CoV-2. Result called to read back by: MORIS MARES 06/02/2021 @ 11:11 by [facility] Performed By: #### C OVID #### [place] [address] NOVEL CORONAVIRUS LAB 1 - NA SOPHARYNGEALOrdered By: Nawaf Dalton on 06-02-2021 Interpretation and review of laboratory results Abnormal [facility] NARRATIVE -1 This test was perfor med using isothermal CHANTELL and has been approved as Emergency Use Authorization (EUA) for the qualitative detection [id number] nucleic acid. [facility] SARS-CoV-2 (COVID-19) RNA CHANTELL+probe Ql (Unsp spec) Detected Abnormal NOT DETECTED [facility] Comment on above: ENHANCED CONTACT, AN D DROPLET ISOLATION IS REQUIRED FOR INPATIENTS WITH SARS-CoV-2. Result called to read back by: MORIS MARES 06/02/2021 @ 11:11 by [facility] No Panel InformationOrdered By: Flash De La Rosa on 06-02-2021 [facility] No Panel InformationOrdered By: Nawaf Dalton on 06-02-2021 [facility] Interpretation and review of laboratory results Abnormal [facility] PROCEDURE - CENTRAL LINE WIT H OR WITHOUT PACOrdered By: Al Stack on 06-02-2021 TAI Hawkins 06/02/2021 4:55 PM INDICATION: Vascular Access / Critically Ill / Limited access PROCEDURE [employer] MANAGER: Nathen VICENTE ATTENDING PHYSICIAN: In Attendance (N) [...] Estimated blood loss is less than 10ml. [facility] RETIC COUNTon 06-02-2021 RETIC COUNT 0.57 % Normal 0.50-2.30 [facility] Comment on above: Performed By: #### U [employer] [facility] [employer], UMIC #### Testing performed at [address] [address] RETICULOCYTESOrdered By: Nam De La Rosa on 06-02-2021 Reticulocytes/100 RBC (Bld) 0.57 % 0.50 - 2.30 % [facility] S PNEUMONIAE AG URINEon 07-0 S PNEUMONIAE AG URINE Negative Normal NEGATIVE [facility] Comment on above: Performed By: #### S PAGUT, LPAGUT #### Testing performed at [address] [address] SCREEN: MRSA ONLY, NARES (IS OLATION SCREEN)Ordered By: Flash De La Rosa on 06-02-2021 Interpretation and review of laboratory results Abnormal [facility] MRSA isol Org specific cx Ql (Nose) Not detected NOT DETECTED [facility] STAPHYOCOCCUS AUREUS BY PCR Detected Abnormal NOT DETECTED [facility] SEDIMENTATION RATE, AUTOMATE DOrdered By: Nawaf Dalton on 06-02-2021 ESR (Bld) [Velocity] 121 mm/h [facility] Interpretation and review of laboratory results Abnormal [facility] STREP PNEUMONIAE ANTIGEN, UR INEOrdered By: Flash De La Rosa on 06-02-2021 S. pneumoniae Ag Ql (U) Negative NEGATIVE [facility] TROPONIN I, HIGH SENSITIVITY on 06-02-2021 TROPONIN I, HIGH SENSITIVITY 12 pg/mL Normal 0-12 [facility] Comment on above: Result Comment: Indeterminant: >12 to 100 pg/mL female >20 to 100 pg/mL male Indicative of myocardial injury. Serial sampling is recommended, a change of greater than or equal to 20 pg/mL is indicative of acute coronary syndrome. Performed By: #### C OVID #### Testing performed at [address] [address] TROPONIN I, HIGH SENSITIVITY Ordered By: Nawaf Dalton on 06-02-2021 TROPONIN I, HIGH SENSITIVITY 12 pg/mL 0 - 12 pg/mL [facility] Comment on above: Indeterminant: >12 to 100 pg/mL female >20 to 100 pg/mL male Indicative of myocardial injury. Serial sampling is recommended, a change of greater than or equal to 20 pg/mL is indicative of acute coronary syndrome. [facility] URINALYSIS, MACROOrdered By: Nawaf Dalton on 06-02-2021 Bilirubin Ql (U) Negative NEGATIVE [facility] Clarity (U) CLEAR CLEAR [facility] Color (U) YELLOW YELLOW [facility] Glucose Test strip (U) [Mass/Vol] Negative NEGATIVE mg/dl [facility] Hemoglobin Ql (U) TRACE-LYSED Abnormal NEGATIVE [facility] Interpretation and review of laboratory results Abnormal [facility] Ketones (U) [Mass/Vol] Negative NEGAT EMMY mg/dl [facility] Leukocyte esterase Test strip Ql (U) Negative NEGATIVE [facility] Nitrite Ql (U) Negative NEGATIVE [facility] pH (U) 5.5 [pH] [facility] Protein Ql (U) 100 mg/dl Abnormal NEGATIVE [facility] Specific gravity (U) [Rel density] 1.020 [facility] Urobilinogen (U) [Mass/Vol] 0.2 mg/dL [facility] URINE MACROSCOPICon 06-02-20 Bilirubin Ql (U) Negative Normal NEGATIVE [facility] Comment on above: Performed By: #### U MAC, UMIC #### Testing performed at [address] [address] Clarity (U) CLEAR Normal CLEAR [facility] Comment on above: Performed By: #### U MAC, UMIC #### Testing performed at [address] [place] [address] Color (U) YELLOW Normal YELLOW [facility] Comment on above: Performed By: #### U MAC, UMIC #### Testing performed at [address] [address] Glucose Ql (U) Negative Normal NEGATIVE [facility] Comment on above: Performed By: #### U MAC, UMIC #### Testing performed at [address] [address] pH (U) 5.5 [pH] Normal 5.0-7.0 [facility] Comment on above: Performed By: #### U MAC, UMIC #### Testing performed at [address] [address] Protein (U) [Mass/Vol] 100 mg/dL Abnormal NEGATIVE [facility] Comment on above: Performed By: #### U MAC, UMIC #### Testing performed at [address] [address] URINE HEMOGLOBIN TRACE-LYSED Abnormal NEGATIVE [facility] Comment on above: Performed By: #### U MAC, UMIC #### Testing performed at [address] [address] URINE KETONE Negative Normal NEGATIVE [facility] Comment on above: Performed By: #### U MAC, UMIC #### Testing performed at [address] [address] URINE LEUKOTEST Negative Normal NEGATIVE [facility] Comment on above: Performed By: #### U MAC, UMIC #### Testing performed at [address] [address] URINE NITRATES Negative Normal NEGATIVE [facility] Comment on above: Performed By: #### U MAC, UMIC #### Testing performed at [address] [address] URINE SPEC GRAVITY 1.020 Normal 1.010-1.025 [facility] Comment on above: Performed By: #### U MAC, UMIC #### Testing performed at [address] [address] Urobilinogen Qn (U) 0.2 {Jessica'U}/dL Normal 0.2-1.0 [facility] Comment on above: Performed By: #### U MAC, UMIC #### Testing performed at [address] [address] URINE MICROSCOPICon 06-02-20 21 Bacteria LM.HPF (Urine sed) [#/Area] Negative Normal NEGATIVE [facility] Comment on above: Performed By: #### U MAC, UMIC #### Testing performed at [address] [address] CASTS NONE Normal NONE [facility] Comment on above: Performed By: #### U MAC, UMIC #### Testing performed at [address] [address] CRYSTAL NONE Normal NONE [facility] Comment on above: Performed By: #### U MAC, UMIC #### Testing performed at [address] [address] Epithelial cells LM Ql (Urine sed) 1 TO 5 Normal [facility] Comment on above: Performed By: #### U MAC, UMIC #### Testing performed at [address] [address] Mucus Ql (Urine sed) Negative Normal NEGATIVE [facility] Comment on above: Performed By: #### U MAC, UMIC #### Testing performed at [address] [address] URINE COMMENT CULTURE CRITERIA NOT MET, NO CULTURE PERFORMED. Normal [facility] Comment on above: Performed By: #### U MAC, UMIC #### Testing performed at [address] [address] URINE RBC'S Negative Normal NEGATIVE [facility] Comment on above: Performed By: #### U MAC, UMIC #### Testing performed at [address] [address] URINE WBC'S Negative Normal NEGATIVE [facility] Comment on above: Performed By: #### U MAC, UMIC #### Testing performed at [address] [address] URINE MICROSCOPICOrdered By: Nawaf Dalton on 06-02-2021 Bacteria LM.HPF (Urine sed) [#/Area] Negative NEGATIVE [facility] Casts LM.LPF (Urine sed) [#/Area] NONE NONE /LPF [facility] Crystals LM Nom (Urine sed) NONE NONE [facility] Epithelial cells LM Ql (Urine sed) 1 TO 5 /HPF [facility] Mucus Ql (Urine sed) Negative NEGATIVE [facility] RBC LM.HPF (Urine sed) [#/Area] Negative NEGATIVE /HPF [facility] Urine sediment comments LM Terry (Urine sed) CULTURE CRITERIA NOT MET, NO CULTURE PERFORMED. [facility] WBC LM.HPF (Urine sed) [#/Area] Negative NEGATIVE /HPF [facility] VITAMIN D (25-HYDROXY,TOTAL) Ordered By: Flash De La Rosa on 06-02-2021 25-hydroxyvitamin D [Mass/Vol] 27.7 Low >30 NG/ML [facility] Comment on above: DEFICIENT <20 NG/ML INSUFFICIENT 20-<30 NG/ML SUFFICIENT 30-100 NG/ML POTENTIAL TOXICITY >100 NG/ML Interpretation and review of laboratory results Abnormal [facility] XR CHEST AP PORTABLEon 06-02 XR [...] roughly similar to the prior study. Normal [facility] XR CHEST AP PORTABLEOrdered By: Flash De La Rosa on 06-02-2021 IMPRESSION: 1. Moder ate cardiomegaly. 2. Moderate scattered patchy infiltrates noted bilaterally which may be due to pulmonary edema and/or multifocal pneumonia roughly similar to the prior study. [facility] EXAM: XR CHEST AP PORTABLE HISTORY: [...] similar roughly similar to the prior study. [facility] User, Interfaces - 06/02/2021 5:15 PM [...] pneumonia roughly similar to the prior study. [facility] CHEST 2 VIEWSon 05-17-2021 CHEST [address] [address] Patient: JESUSITA ENGLAND Phone#: : 1970 Age: 51 Gender: F Pt. Type: Out Account: [id number] Location: Ordering: [facility] Exam Date: 05/17/2021/16:21 Family Phys: Charge Code: [id number] Physician: [place] Order #: [id number] DLP Dose#: PROCEDURE: X-RAY CHEST 2 VIEWS [...] Negative. CONCLUSION: No acute disease. Dictated by: Michelle Sharma MD on 05/17/2021 at 16:47 Approved by: Michelle Sharma MD on 05/17/2021 at 16:47 Normal [facility] FOOT COMPLETE LTon FOOT COMPLETE LT [place] [address] Patient: JESUSITA ENGLAND Phone#: : 1970 Age: 51 Gender: F Pt. Type: Out Account: [id number] Location: Ordering: [facility] Exam Date: 05/17/2021/16:21 Family Phys: Charge Code: [id number] Physician: [place] Order #: [id number] DLP Dose#: PROCEDURE: X-RAY FOOT LT COMPLETE [...] Sharma MD on 05/17/2021 at 16:49 Normal [facility] FOOT COMPLETE RTon 1 FOOT COMPLETE RT [address] [address] Patient: JESUSITA ENGLAND Phone#: : 1970 Age: 51 Gender: F Pt. Type: Out Account: [id number] [facility]: [facility] Exam Date: 05/17/2021/16:24 Family Phys: Charge Code: [id number] Physician: [place] Order #: [id number] DLP Dose#: PROCEDURE: X-RAY FOOT RT COMPLETE [...] Sharma MD on 05/17/2021 at 16:50 Normal [facility] Laboratory - Chemistry and C hemistry - challengeon 05-17-2021 Ferritin [Mass/Vol] 5 ng/mL Abnormal 16 - 232 ng/mL [facility], [facility].; [facility], [facility]. Laboratory - Hematology and Cell countson 05-17-2021 Basophils (Bld) [#/Vol] 0.022 10*3/uL Normal 0 - 200 {cells/uL} [facility], [facility].; [facility], [facility]. Basophils/100 WBC (Bld) 0.3 % Normal [facility], [facility].; [facility], [facility]. Eosinophils (Bld) [#/Vol] 0.173 10*3/uL Normal 15 - 500 {cells/uL} [facility]. Eosinophils/100 WBC (Bld) 2.4 % Normal [facility], [facility]. Erythrocyte distribution width (RBC) [Ratio] 16.8 % Abnormal 11.0 - 15.0 % [facility], [facility] Hematocrit (Bld) [Volume fraction] 34.7 % Abnormal 35.0 - 45.0 % [facility], [facility]. Hemoglobin (Bld) [Mass/Vol] 10.6 g/dL Abnormal 11.7 - 15.5 g/dL [facility], [facility]. Lymphocytes (Bld) [#/Vol] 1.188 10*3/uL Normal 850 - 3900 {cells/uL} [facility].; [facility], [facility]. Lymphocytes/100 WBC (Bld) 16.5 % Normal [facility].; [facility], [facility]. MCH (RBC) [Entitic mass] 22.1 pg Abnormal 27.0 - 33.0 pg [facility].; [facility], [facility]. MCHC (RBC) [Mass/Vol] 30.5 g/dL Abnormal 32.0 - 36.0 g/dL [facility].; [facility], [facility]. MCV (RBC) [Entitic vol] 72.3 fL Abnormal 80.0 - 100.0 fL [facility].; [facility], [facility]. Monocytes (Bld) [#/Vol] 0.619 10*3/uL Normal 200 - 950 {cells/uL} [facility].; [facility], [facility]. Monocytes/100 WBC (Bld) 8.6 % Normal [facility].; [facility], [facility]. Neutrophils (Bld) [#/Vol] 5.198 10*3/uL Normal 1500 - 7800 {cells/uL} [facility], [facility].; [facility], [facility]. Neutrophils/100 WBC (Bld) 72.2 % Normal [facility].; [facility], [facility]. Platelet mean volume (Bld) [Entitic vol] 9.7 fL Normal 7.5 - 12.5 fL [facility] Platelets (Bld) [#/Vol] 249 10*3/uL Normal 140 - 400 [facility].; [facility] RBC (Bld) [#/Vol] 4.80 10*6/uL Normal 3.80 - 5.1 0 {Million/uL} [facility] WBC (Bld) [#/Vol] 7.2 10*3/uL Normal 3.8 - 10.8 [facility] No Panel Informationon 05-17 IRON, TOTAL 24 ug/dL Abnormal 45 - 160 ug/dL [facility].; [facility] ECHOCARDIOGRAMOrdered By: Me shilo Crews on 04-05-2021 [...] ms MVA PHT 3.22 cm2 MV Dec [place] 970.89 cm/s2 MV Decel. Time 139.71 (160-240 ms) Pulmonary Valve PV Peak Velocity 0.8 (0.5-1.5 m/s) PV maxPG 2.8 mmHg PV Vmax 0.8 m/s Tricuspid Valve TR P. Velocity 2.62 m/s RAP Estimate 3 mmHg RVSP 30.43 mmHg TR maxPG 27.43 mmHg [facility] User, Interfaces - 04/05/2021 12:17 PM EDT [...] Aortic Root 3.40 cm F: 2.7 - 3.0JHGC80 mL Aortic Root Index1.2 cm/m2LV Mmcmwz022.35 mL F: 46 - 106 Ascending Aorta 3.87 cm F: 2.3 - 3.1LV Volume Index47.76 mL/m2 F: 29 - 61 Ascending Aorta Index: 1.4 cm/m2LA Vbyeww11.6 mL Left Atrium 4.80 cm F: 2.7 [...] Ratio1.54MV PHT68.27 ms MVA PHT3.22 cm2MV Dec [place] 970.89 cm/s2 MV Decel. Haje920.71 (160-240 ms) Pulmonary Valve PV Peak Velocity0.8 (0.5-1.5 m/s)PV maxPG2.8 mmHg PV Vmax0.8 m/s Tricuspid Valve TR P. Velocity2.62 m/sRAP Estimate3 mmHg RVSP30.43 mmHgTR maxPG 27.43 mmHg [facility] BMP FASTINGon 03-22-2021 Creatinine [Mass/Vol] 0.66 mg/dL Normal 0.52-1.04 [facility] Comment on above: Performed By: #### C OVID #### Testing performed at [address] [address] EST. GFR, >60 Normal [facility] Comment on above: Performed By: #### C OVID #### Testing performed at [address] [address] EST. GFR,Non >60 Normal [facility] Comment on above: Performed By: #### C OVID #### Testing performed at [address] [address] GFR Information Average GFR for 50-5 9 years old = 93. Normal [facility] Comment on above: Result Comment: Neurosurgery Spine Physician randi Kidney disease, GFR = <60. Kidney failure, GFR = <15. The GFR estimate is not adjusted for extreme body surface area or acute process, nor has it been validated for women or ethnic groups other than and . Performed By: #### C OVID #### Testing performed at [address] [address] Urea nitrogen [Mass/Vol] 14 mg/dL Normal 7-20 [facility] Comment on above: Performed By: #### C OVID #### Testing performed at [address] [address] Anion gap [Moles/Vol] 11 mmol/L Normal 8-16 [facility] Comment on above: Performed By: #### C OVID #### Testing performed at [address] [address] Calcium [Mass/Vol] 8.8 mg/dL Normal 8.4-10.2 [facility] Comment on above: Performed By: #### C OVID #### Testing performed at [address] [address] Chloride [Moles/Vol] 100 mmol/L Normal 98-107 [facility] Comment on above: Performed By: #### C OVID #### Testing performed at [address] [address] CO2 [Moles/Vol] 27 mmol/L Normal 22-30 [facility] Comment on above: Performed By: #### C OVID #### Testing performed at [address] [address] Glucose [Mass/Vol] 91 mg/dL Normal 70-100 [facility] Comment on above: Result Comment: NORMAL <100 mg/dL PREDIABETES 101-126 mg/dL DIABETES 126 mg/dL or higher Performed By: #### C OVID #### Testing performed at [address] [address] Potassium [Moles/Vol] 4.0 mmol/L Normal 3.5-5.1 [facility] Comment on above: Performed By: #### C OVID #### Testing performed at [address] [address] Sodium [Moles/Vol] 138 mmol/L Normal 136-145 [facility] Comment on above: Performed By: #### C OVID #### Testing performed at [address] [place] [address] FAX REQUESTon 03-22-2021 FAX TO [phone] Normal [facility] Comment on above: Performed By: #### C OVID #### Testing performed at [address] [place] [address] LIPID PROFILEon 03-22-2021 Cholesterol [Mass/Vol] 148 mg/dL Normal 100-199 [facility] Comment on above: Performed By: #### C OVID #### Testing performed at [address] [address] Cholesterol in HDL [Mass/Vol] 46 mg/dL Normal 40-60 [facility] Comment on above: Performed By: #### C OVID #### Testing performed at [address] [address] Cholesterol in LDL [Mass/Vol] 90 mg/dL Normal 0-100 [facility] Comment on above: Performed By: #### C OVID #### Testing performed at [address] [address] Cholesterol in VLDL [Mass/Vol] 12 mg/dL Normal 5.0-25.0 [facility] Comment on above: Performed By: #### C OVID #### Testing performed at [address] [address] Cholesterol.total/Chol esterol in HDL [Mass ratio] 3.22 {ratio} Normal [facility] Comment on above: Result Comment: RISK TOTAL/HDL RATIO MEN WOMEN 1/2 AVERAGE 3.43 3.27 AVERAGE 4.97 4.44 2X AVERAGE 9.55 7.05 3X AVERAGE 23.99 11.04 Performed By: #### C OVID #### Testing performed at [address] [address] Triglyceride [Mass/Vol] 59 mg/dL Normal <150 [facility] Comment on above: Performed By: #### C OVID #### Testing performed at [address] [address] Laboratory - Chemistry and C hemistry - challengeon 03-21-2021 Calcium [Mass/Vol] 8.8 mg/dL Normal 8.4 - 10. 6 mg/dL [employer] [facility], Inc.; [employer] Chloride [Moles/Vol] 100 mmol/L Normal 98 - 11 0 mmol/L [employer] [facility], Inc.; [employer] Cholesterol [Mass/Vol] 148 mg/dL Normal 0 - 2 00 mg/dL [employer] Cholesterol in HDL [Mass/Vol] 46 mg/dL Normal 40 - 60 mg/dL [employer] Cholesterol in LDL [Mass/Vol] 90 mg/dL Normal 50.0 - 130.0 mg/dL [employer] Cholesterol in VLDL [Mass/Vol] 12 mg/dL Normal [employer] Cholesterol.total/Chol esterol in HDL [Mass ratio] 3.22 {ratio} Normal 0 - 5.0 [facility]; [facility], [facility] CO2 [Moles/Vol] 27 {kenya/L} Normal 22.0 - 32.0 {kenya/L} [facility]; [facility], [facility] Creatinine [Mass/Vol] 0.66 mg/dL Normal 0.5 - 1.2 mg/dL [facility]; [facility], [facility] Glucose [Mass/Vol] 91 mg/dL Normal 60 - 100 mg/dL [facility]; [facility], [facility] Potassium [Moles/Vol] 4.0 mmol/L Normal 3.5 - 5.0 mmol/L [facility]; [facility], [facility] Sodium [Moles/Vol] 138 mmol/L Normal 136 - 145 mmol/L [facility]; [facility], [facility] Triglyceride [Mass/Vol] 59 mg/dL Normal 40 - 150 mg/dL [facility]; [facility], [facility] Urea nitrogen [Mass/Vol] 14 mg/dL Normal 8 - 22 mg/dL [facility]; [facility], [facility] Urea nitrogen/Creatinine [Mass ratio] - Normal 0 - 30 [facility]; [facility] No Panel Informationon 03-21 ELECTROLYTE BALANCE - Normal [facility]; [employer] [facility], [facility] GFR >60 Normal [facility]; [facility], [facility] GFR2 >60 Normal [facility]; [facility] Laboratory - Chemistry and C hemistry - challengeon 03-14-2021 Albumin [Mass/Vol] 3.9 g/dL Normal 3.6 - 5.1 g/dL [facility]; [facility], [facility] Albumin/Globulin [Mass ratio] 1.3 {ratio} Normal 1.0 - 2.5 [facility]; [employer] [facility], [facility] ALP [Catalytic activity/Vol] 106 U/L Normal 37 - 153 U/L [facility].; [facility], [facility] ALT [Catalytic activity/Vol] 15 U/L Normal 6 - 29 U/L [facility]; [facility], [facility]. AST [Catalytic activity/Vol] 15 U/L Normal 10 - 35 U/L [facility], [facility]. Bilirubin [Mass/Vol] 0.3 mg/dL Normal 0.2 - 1 .2 mg/dL [facility], [facility].; [facility], [facility]. Calcium [Mass/Vol] 8.9 mg/dL Normal 8.6 - 10. 4 mg/dL [facility], [facility]. Chloride [Moles/Vol] 103 mmol/L Normal 98 - 11 0 mmol/L [facility], [facility]. CO2 [Moles/Vol] 28 mmol/L Normal 20 - 32 mmol/L [facility], [facility]. Creatinine [Mass/Vol] 0.72 mg/dL Normal 0.50 - 1.05 mg/dL [facility], [facility].; [facility], [facility]. GFR/1.73 sq M.predicted among blacks MDRD (S/P/Bld) [Vol rate/Area] 111 mL/min/{1.73_m2} Normal [facility], [facility] Glucose [Mass/Vol] 108 mg/dL Abnormal 65 - 99 mg/dL [facility], [facility].; [facility], [facility]. Natriuretic peptide B (Bld) [Mass/Vol] 45 pg/mL Normal [facility], [facility] Potassium [Moles/Vol] 4.3 mmol/L Normal 3.5 - 5.3 mmol/L [facility], [facility]. Protein [Mass/Vol] 7.0 g/dL Normal 6.1 - 8.1 g/dL [facility], [facility].; [facility], [facility]. Sodium [Moles/Vol] 138 mmol/L Normal 135 - 146 mmol/L [facility], [facility].; [facility], [facility]. TSH Qn 2.90 m[IU]/L Normal [facility], [facility] Urea nitrogen [Mass/Vol] 13 mg/dL Normal 7 - 25 mg/dL [facility].; [facility] Laboratory - Hematology and Cell countson 03-14-2021 Basophils (Bld) [#/Vol] 0.03 10*3/uL Normal 0 - 200 {cells/uL} [facility], [facility] Basophils/100 WBC (Bld) 0.4 % Normal [facility], [facility] Eosinophils (Bld) [#/Vol] 0.644 10*3/uL Abnormal 15 - 500 {cells/uL} [facility], [facility] Eosinophils/100 WBC (Bld) 8.7 % Normal [facility].; [employer] [facility], [facility] Erythrocyte distribution width (RBC) [Ratio] 16.9 % Abnormal 11.0 - 15.0 % [facility].; [employer] [facility], [facility] Hematocrit (Bld) [Volume fraction] 35.2 % Normal 35.0 - 45.0 % [facility].; [employer] [facility], [facility] Hemoglobin (Bld) [Mass/Vol] 10.7 g/dL Abnormal 11.7 - 15.5 g/dL [facility].; [facility], [facility]. Lymphocytes (Bld) [#/Vol] 1.221 10*3/uL Normal 850 - 3900 {cells/uL} [facility], [facility].; [employer] [facility], [facility] Lymphocytes/100 WBC (Bld) 16.5 % Normal [facility].; [employer], [facility]. MCH (RBC) [Entitic mass] 22.1 pg Abnormal 27.0 - 33.0 pg [facility].; [employer] [facility], [facility]. MCHC (RBC) [Mass/Vol] 30.4 g/dL Abnormal 32.0 - 36.0 g/dL [facility], [facility].; [employer] [facility], [facility]. MCV (RBC) [Entitic vol] 72.7 fL Abnormal 80.0 - 100.0 fL [facility].; [employer] [facility], [facility]. Monocytes (Bld) [#/Vol] 0.511 10*3/uL Normal 200 - 950 {cells/uL} [facility].; [employer] [facility] Monocytes/100 WBC (Bld) 6.9 % Normal [facility]; [facility] Neutrophils (Bld) [#/Vol] 4.995 10*3/uL Normal 1500 - 7800 {cells/uL} [facility].; [employer], [employer] Neutrophils/100 WBC (Bld) 67.5 % Normal [facility]; [employer] [facility] Platelet mean volume (Bld) [Entitic vol] 10.0 fL Normal 7.5 - 12.5 fL [facility].; [employer] [facility] Platelets (Bld) [#/Vol] 258 10*3/uL Normal 140 - 400 [facility]; [employer], [employer] RBC (Bld) [#/Vol] 4.84 10*6/uL Normal 3.80 - 5.1 0 {Million/uL} [facility].; [employer] [facility]. WBC (Bld) [#/Vol] 7.4 10*3/uL Normal 3.8 - 10.8 [facility].; [employer] [facility] No Panel Informationon 03-14 BUN/CREATININE RATIO NOT APPLICABLE Normal 6 - 22 [facility]; [employer] [facility] eGFR NON-AFR. BRUNEIAN 96 Normal [facility]; [employer] [facility] GLOBULIN 3.1 Normal 1.9 - 3.7 [facility].; [employer] [facility] Basic Metabolic Panelon 07-0 Anion gap [Moles/Vol] 7 mmol/L [place], [place] Calcium [Mass/Vol] 8.5 mg/dL 8.4 - 10. 4 mg/dL [place] Chloride [Moles/Vol] 106 mmol/L 98 - 10 7 mmol/L [place] CO2 [Moles/Vol] 24 mmol/L 22 - 30 mmol/L [place] Creatinine [Mass/Vol] 0.67 mg/dL 0.52 - 1.25 mg/dL [place] EGFR IF NonAfrican [place] >90.0 >60 mL/min [place] Comment on above: KDIGO guidelines pro [...] MDRD (S/P/Bld) [Vol rate/Area] mL/min/{1.73_m2} >60 mL/min [place] Glucose [Mass/Vol] 101 mg/dL High 70 - 100 mg/dL [place] Interpretation and review of laboratory results Abnormal [place] Potassium [Moles/Vol] 4.2 mmol/L 3.5 - 5.1 mmol/L [place] Sodium [Moles/Vol] 137 mmol/L 135 - 145 mmol/L [place] Urea nitrogen [Mass/Vol] 14 mg/dL 7 - 20 mg/dL [place] Test Performed by [facility], [address] [place] [id number] [place], [place] CT Abdomen Pelvis Wo Contras ton 06-01-2020 Patient Name: JESUSITA ENGLAND ---CT--- Exam Date/Time 06/01/2020 01:53:[address] Abdomen/Pelvis (No PO, No IV) Ordering Physician KIMBERLY SAVAGE RYAN Accession Number [id number] CPT4 Codes 85348 (CT Abdomen/Pelvis (No PO, No IV)) Reason [...] R Transcribed Date and Time: 06/01/2020 2:10 [place] Marcio, [facility] Incoming Radiology Results From [facility] - 06/01/2020 2:15 AM EDT Patient Name: JESUSITA ENGLAND ---CT--- Exam Date/Time 06/01/2020 01:53:[address] Abdomen/Pelvis (No PO, No IV) Ordering Physician KIMBERLY SAVAGE RYAN Accession Number [id number] CPT4 Codes 90530 (CT Abdomen/Pelvis (No PO, No IV)) Reason [...] R Transcribed Date and Time: 06/01/2020 2:10 [place] Hemogram (CBC)on 06-01-2020 Erythrocyte distribution width (RBC) [Ratio] 19.4 % High 11.5 - 14.5 % [place] Hematocrit (Bld) [Volume fraction] 33.5 % Low 35 - 47 % [place] Hemoglobin (Bld) [Mass/Vol] 10.5 g/dL Low 11.7 - 16 g/dL [place] Interpretation and review of laboratory results Abnormal [place] MCH (RBC) [Entitic mass] 21.7 pg Low 26 - 34 pg [place] MCHC (RBC) [Mass/Vol] 31.4 % Low 32 - 36 % [place] MCV (RBC) [Entitic vol] 69.1 fL Low 79 - 98 fL [place] Platelet mean volume (Bld) [Entitic vol] 8.5 fL 7.4 - 10.4 fL [place] Platelets (Bld) [#/Vol] 232 10*3/uL 140 - 440 10*3/uL [place] RBC (Bld) [#/Vol] 4.86 10*6/uL 3.8 - 5.2 10*6/uL [place] WBC (Bld) [#/Vol] 7.2 10*3/uL 3.6 - 10.7 10*3/uL [place] Test Performed by [id number] [place] [address] Otheron 06-01-2020 Test Performed by [id number] [place] [address] , Urineon 0 Beta HCG ( test) Ql (U) Negative Negative [place], [place] Comment on above: is the mos t common reason for HCG in urine, although choriocarcinoma, hydatidiform mole, and certain nontropho- blastic malignancies also result in detectable urinary HCG levels. Sensitivity = 20mIU/mL. Urinalysison 06-01-2020 Appearance (U) Clear Clear [place], [place] Comment on above: . Bilirubin Urine Negative Negative mg/dL [place] Comment on above: . Color (U) Yellow Lt. Yellow [place], [place] Comment on above: . Glucose, Ur Normal Normal (<70) mg/dL [place] Comment on above: . Ketones Ql (U) Negative Negative mg/dL [place] Comment on above: . LEUKOCYTES, UA Negative Negative [place]/uL [place] Comment on above: . Nitrite, Urine Negative Negative [place] Comment on above: . Occult Blood,Urine Negative Negative mg/dL [place] Comment on above: . pH (U) 5.5 [pH] [place] Comment on above: . Protein (U) [Mass/Vol] Negative Negat emmy mg/dL [place] Comment on above: . Specific [place], Urine 1.023 [place] Comment on above: . Urobilinogen, Urine Normal Normal ( 0-1) mg/dL [place] Comment on above: . CHEST PA AND LATERALon 03-01 CHEST PA AND LATERAL Final ReportAccession No: [id number] Performed: Mar 01 2018 2:30PMExamination: CHEST [...] GRACIELA HUIZAR D.O.Trans: md : cc: Normal [facility] Vital Signs Date Time Vital Sign Value Performing Clinician Facility 06-09-2025 13:160400 Body height 160.66 cm [facility], [facility].; [employer] [facility], [facility]. 06-09-2025 13:16-0400 Body mass index (BMI) [Ratio] 92.62 kg/m2 [facility], [facility].; [facility], [facility]. 06-09-2025 13:16-040 Body surface area Derived from formula 2.93 m2 Ceci Suarez MANAGER OF FINANCE [facility], [facility].; [employer] [facility], [facility]. 06-09-2025 13:16040 Body weight 239.05 kg [facility], [facility].; [employer] [facility], [facility]. 06-09-2025 13:16-040 Diastolic blood pressure 82 mm[Hg] [facility], [facility].; [employer] [facility], [facility]. Comment on above: Patient Position: Sitting; Cuff Location : Left Arm; Cuff Size: Standard 06-09-2025 13:16-0400 Heart rate 79 /min Ceci Powersho HUDSON [employer]. Comment on above: Pattern: Regular 06-09-2025 13:16-0400 Systolic blood pressure 129 mm[Hg] Ceci Suarez BECCA [employer], [employer]. Comment on above: Patient Position: Sitting; Cuff Location : Left Arm; Cuff Size: Standard 11-11-2024 08:20-0500 Body weight 232.65 kg [employer] Work Phone: [facility] 11-11-2024 08:20-0500 Diastolic blood pressure 77 mm[Hg] Yamile [employer] DO Work Phone: [facility] 11-11-2024 08:20-0500 Heart rate 93 /min Yamile [employer] DO Work Phone: [facility] 11-11-2024 08:20-0500 Systolic blood pressure 130 mm[Hg] Yamile [employer] DO Work Phone: [facility] 06-13-2024 15:06-0400 Body height 160.66 cm Alondra Agusto Crews PA-C Work Phone: [employer] 06-13-2024 15:06-0400 Body mass index (BMI) [Ratio] 88.4 kg/m2 Alondra Agusto Crews PA-C Work Phone: [employer] 06-13-2024 15:06-0400 Body surface area Derived from formula 2.87 m2 Alondra Agusto Crews PA-C Work Phone: [employer] 06-13-2024 15:06-0400 Body weight 228.16 kg Alondra Agusto Crews PA-C Work Phone: [employer] 06-13-2024 15:06-0400 Diastolic blood pressure 75 mm[Hg] Alondra Agusto Crews PA-C Work Phone: [employer] [facility] [employer]. Comment on above: Patient Position: Sitting; Cuff Location : Left Arm; Cuff Size: Standard 06-13-2024 15:06-0400 Heart rate 76 /min Alondra Agusto ZABALA-Jennifer Work Phone: [facility].; [employer]. Comment on above: Pattern: Regular 06-13-2024 15:06-0400 Systolic blood pressure 138 mm[Hg] Alondra Liz Mars ZABALA-Jennifer Work Phone: [facility].; [employer]. Comment on above: Patient Position: Sitting; Cuff Location : Left Arm; Cuff Size: Standard 05-12-2024 10:07-0400 Body height 165.1 cm Jazlyn Marie LPN [facility].; [email or web address] 05-12-2024 10:07-0400 Body mass index (BMI) [Ratio] 81.21 kg/m2 Jazlyn Marie [facility] [employer] [facility].; [email or web address] 05-12-2024 10:07-0400 Body surface area Derived from formula 2.89 m2 Jazlyn Marie LPN [employer] [facility].; [employer], [employer]. 05-12-2024 10:07-0400 Body weight 221.36 kg Jazlyn Marie MANAGER OF FINANCE [employer] [facility].; [email or web address] 05-12-2024 10:07-0400 Diastolic blood pressure 78 mm[Hg] Jazlyn Marie LPN [employer] [facility].; [employer]. Comment on above: Patient Position: Sitting; Cuff Location : Right Arm; Cuff Size: Standard 05-12-2024 10:07-0400 Heart rate 76 /min Jazlyn Marie LPN [employer] [facility].; [employer]. Comment on above: Pattern: Regular 05-12-2024 10:07-0400 Systolic blood pressure 130 mm[Hg] Jazlyn Marie LPN [employer] [facility].; [employer]. Comment on above: Patient Position: Sitting; Cuff Location : Right Arm; Cuff Size: Standard 04-15-2024 10:34-0400 Body temperature 97.8 [degF] Alondra Agusto Crews PA-C Work Phone: [facility].; [email or web address] 04-15-2024 10:34-0400 Diastolic blood pressure 67 mm[Hg] Alondra Agusto Crews PA-C Work Phone: [facility].; [email or web address] Comment on above: Patient Position: Sitting; Cuff Location : Left Arm; Cuff Size: Standard 04-15-2024 10:34-0400 Heart rate 70 /min Alondra Agusto Crews PA-C Work Phone: [facility].; [email or web address] Comment on above: Pattern: Regular 04-15-2024 10:34-0400 Inhaled oxygen concentration 21 % Alondra Liz Crews PA-C Work Phone: [facility].; [email or web address]. Comment on above: Room air 04-15-2024 10:34-0400 SaO2% (BldA) [Mass fraction] 98 % Alondra Agusto Crews PA-C Work Phone: [facility].; [email or web address] 04-15-2024 10:34-0400 Systolic blood pressure 115 mm[Hg] Alondra Agusto Crews PA-C Work Phone: [facility]; [email or web address]. Comment on above: Patient Position: Sitting; Cuff Location : Left Arm; Cuff Size: Standard 04-08-2024 15:38-0400 Body temperature 98 [degF] PA Alondra Piedraer PA Work Phone: [facility] 04-08-2024 15:38-0400 Diastolic blood pressure 78 mm[Hg] PA Alondra Piedraer PA Work Phone: [facility] 04-08-2024 15:38-0400 Heart rate 97 /min PA Alondra Crews PA Work Phone: [facility] 04-08-2024 15:38-0400 Respiratory rate 16 /min PA Alondra Crews PA Work Phone: [facility] 04-08-2024 15:38-0400 SaO2% (BldA) [Mass fraction] 96 % PA Alondra Crews PA Work Phone: [facility] 04-08-2024 15:38-0400 Systolic blood pressure 140 mm[Hg] PA Alondra Crews PA Work Phone: [facility] 04-06-2024 14:06-0400 Body height 165.1 cm PA Alondra Crews PA Work Phone: [facility] 04-06-2024 14:06-0400 Body weight 227.2 kg PA Alondra Crews PA Work Phone: [facility] 04-04-2024 23:36-0400 Body mass index (BMI) [Ratio] 83.3 kg/m2 PA Alondra Crews PA Work Phone: [facility] 04-04-2024 23:00-0400 Body temperature 98 [degF] [facility] 04-04-2024 23:00-0400 Diastolic blood pressure 75 mm[Hg] [facility] 04-04-2024 23:00-0400 Heart rate 89 /min [facility] 04-04-2024 23:00-0400 Respiratory rate 22 /min [facility] 04-04-2024 23:00-0400 SaO2% (BldA) [Mass fraction] 94 % [facility] 04-04-2024 23:00-0400 Systolic blood pressure 114 mm[Hg] [facility] 04-04-2024 19:07-0400 Body mass index (BMI) [Ratio] 87.2 kg/m2 [facility] 04-04-2024 19:07-0400 Body weight 230.5 kg [facility] 04-04-2024 19:06-0400 Body height 162.56 cm [facility] 04-01-2024 10:51-0400 Body height 165.1 cm [facility] 04-01-2024 10:51-0400 Body mass index (BMI) [Ratio] 84.04 kg/m2 [facility] 04-01-2024 10:51-0400 Body surface area Derived from formula 2.93 m2 [facility] 04-01-2024 10:51-0400 Body weight 229.07 kg [facility].; [facility] 04-01-2024 10:51-0400 Diastolic blood pressure 79 mm[Hg] [facility].; [employer] [facility], [facility]. Comment on above: Patient Position: Sitting; Cuff Location : Left Arm; Cuff Size: Standard 04-01-2024 10:51-0400 Heart rate 73 /min [facility].; [facility]. Comment on above: Pattern: Regular 04-01-2024 10:51-0400 Inhaled oxygen concentration 21 % [facility].; [facility], [facility]. Comment on above: Room air 04-01-2024 10:51-0400 SaO2% (BldA) [Mass fraction] 95 % [facility].; [facility], [facility]. 04-01-2024 10:51-0400 Systolic blood pressure 131 mm[Hg] [facility].; [employer] [facility]. Comment on above: Patient Position: Sitting; Cuff Location : Left Arm; Cuff Size: Standard 09-04-2023 10:52-0400 Body height 162.6 cm Helder Tavera MD Work Phone: [facility] [employer] 09-04-2023 10:52-0400 Body mass index (BMI) [Ratio] 80.16 kg/m2 Helder Tavera MD Work Phone: [facility] [employer] 09-04-2023 10:52-0400 Body temperature 97 [degF] Helder Tavera MD Work Phone: [facility] [employer] 09-04-2023 10:52-0400 Body weight 211.83 kg Helder Tavera MD Work Phone: [facility] [employer] 09-04-2023 10:52-0400 Diastolic blood pressure 86 mm[Hg] Helder Tavera MD Work Phone: [facility] [employer] 09-04-2023 10:52-0400 Heart rate 70 /min Helder Tavera MD Work Phone: [facility] [employer] 09-04-2023 10:52-0400 SaO2% (BldA) [Mass fraction] 96 % Helder Tavera MD Work Phone: [facility] [employer] 09-04-2023 10:52-0400 Systolic blood pressure 138 mm[Hg] Helder Tavera MD Work Phone: [facility] [employer] 08-26-2023 11:19-0400 Body height 165.1 cm Jazlyn Marie [facility], [facility].; [employer] [facility]. 08-26-2023 11:19-0400 Body mass index (BMI) [Ratio] 78.38 kg/m2 Jazlyn Marie [facility], [facility].; [facility], [facility]. 08-26-2023 11:19-0400 Body surface area Derived from formula 2.85 m2 Jazlyn Marie MANAGER OF FINANCE [facility], [facility].; [employer] [facility], [facility]. 08-26-2023 11:19-0400 Body weight 213.65 kg Jazlyn Marie [facility], [facility].; [employer] [facility]. 08-26-2023 11:19-0400 Diastolic blood pressure 82 mm[Hg] Jazlyn Marie [facility], [facility].; [employer] [facility], [facility]. Comment on above: Patient Position: Sitting; Cuff Location : Left Arm; Cuff Size: Standard 08-26-2023 11:19-0400 Heart rate 84 /min Jazlyn Marie MANAGER OF FINANCE [facility], [facility].; [facility], Inc[employer] Comment on above: Pattern: Regular 08-26-2023 11:19-0400 Systolic blood pressure 132 mm[Hg] Jazlyn Marie LPN [facility], [facility].; [facility] Comment on above: Patient Position: Sitting; Cuff Location : Left Arm; Cuff Size: Standard 08-21-2023 11:58-0400 Body temperature 97 [degF] PA Alondra Crews PA Work Phone: [facility] 08-21-2023 11:58-0400 Diastolic blood pressure 58 mm[Hg] PA Alondra Crews PA Work Phone: [phone](349)349-233254 [place] [address] 08-21-2023 11:58-0400 Heart rate 68 /min PA Alondra Crews PA Work Phone: [phone](387)260-341054 [place] [address] 08-21-2023 11:58-0400 Respiratory rate 18 /min PA Alondra Crews PA Work Phone: 3(870)[phone] [place] [address] 08-21-2023 11:58-0400 SaO2% (BldA) [Mass fraction] 97 % PA Alondra Crews PA Work Phone: [phone](817)[phone] [place] [address] 08-21-2023 11:58-0400 Systolic blood pressure 120 mm[Hg] PA Alondra Crews PA Work Phone: [facility] 08-18-2023 13:13-0400 Body height 162.56 cm PA Alondra Crews PA Work Phone: [facility] 08-18-2023 13:13-0400 Body weight 211.3 kg PA Alondra Crews PA Work Phone: [facility] 08-18-2023 01:42-0400 Body mass index (BMI) [Ratio] 79.9 kg/m2 PA Alondra Crews PA Work Phone: [facility] 08-18-2023 00:51-0400 Body temperature 101.2 [degF] PA Alondra Crews PA Work Phone: [facility] 08-18-2023 00:51-0400 Diastolic blood pressure 62 mm[Hg] PA Alondra Crews PA Work Phone: [facility] 08-18-2023 00:51-0400 Heart rate 89 /min PA Alondra Crews PA Work Phone: [facility] 08-18-2023 00:51-0400 Respiratory rate 20 /min PA Alondra Crews PA Work Phone: [facility] 08-18-2023 00:51-0400 SaO2% (BldA) [Mass fraction] 94 % PA Alondra Crews PA Work Phone: [facility] 08-18-2023 00:51-0400 Systolic blood pressure 107 mm[Hg] PA Alondra Crews PA Work Phone: [facility] 08-17-2023 23:44-0400 Body mass index (BMI) [Ratio] 82.3 kg/m2 PA Alondra Crews PA Work Phone: [facility] 08-17-2023 23:44-0400 Body weight 217.7 kg PA Alondra Crews PA Work Phone: [facility] 08-17-2023 22:20-0400 Body height 162.56 cm PA Alondra Crews PA Work Phone: [facility] 07-31-2023 13:32-0400 Body height 165.1 cm Jazlyn Marie LPN [facility], [facility]. 07-31-2023 13:32-0400 Body mass index (BMI) [Ratio] 77.38 kg/m2 Jazlyn Marie LPN [facility], [facility].; [facility], [facility]. 07-31-2023 13:32-0400 Body surface area Derived from formula 2.83 m2 Jazlyn Marie LPN [facility], [facility].; [facility], [facility]. 07-31-2023 13:32-0400 Body temperature 99.3 [degF] Jazlyn Marie LPN [facility], [facility].; [facility], [facility]. Comment on above: Method: Tympanic 07-31-2023 13:32-0400 Body weight 210.92 kg Jazlyn Ashli Marie LPN [facility], [facility].; [facility] 07-31-2023 13:32-0400 Diastolic blood pressure 79 mm[Hg] Jazlyn Marie LPN [facility], [facility].; [facility]. Comment on above: Patient Position: Sitting; Cuff Location : Left Arm; Cuff Size: Standard 07-31-2023 13:32-0400 Heart rate 84 /min Jazlyngaudencio Marie LPN [facility], [facility].; [employer] [facility], [employer]. Comment on above: Pattern: Regular 07-31-2023 13:32-0400 Systolic blood pressure 132 mm[Hg] Jazlyngaudencio Marie LPN [facility], [facility].; [facility], [facility]. Comment on above: Patient Position: Sitting; Cuff Location : Left Arm; Cuff Size: Standard 07-31-2023 09:00-0400 Body temperature 97.8 [degF] PA Alondra Crews PA Work Phone: [facility] 07-31-2023 09:00-0400 Diastolic blood pressure 90 mm[Hg] PA Alondra Crews PA Work Phone: [facility] 07-31-2023 09:00-0400 Heart rate 82 /min PA Alondra Crews PA Work Phone: [facility] 07-31-2023 09:00-0400 Respiratory rate 16 /min PA Alondra Crews PA Work Phone: [facility] 07-31-2023 09:00-0400 SaO2% (BldA) [Mass fraction] 95 % PA Alondra Crews PA Work Phone: [facility] 07-31-2023 09:00-0400 Systolic blood pressure 108 mm[Hg] PA Alondra Crews PA Work Phone: [facility] 07-31-2023 04:01-0400 Body mass index (BMI) [Ratio] 82 kg/m2 PA Alondra Crews PA Work Phone: [facility] 07-31-2023 04:01-0400 Body weight 223.4 kg PA Alondra Crews PA Work Phone: [facility] 07-29-2023 10:57-0400 Body height 165 cm PA Alondra Crews PA Work Phone: [facility] 07-25-2023 02:59-0400 Body height 165 cm PA Alondra Crews PA Work Phone: [facility] 07-25-2023 02:59-0400 Body mass index (BMI) [Ratio] 82.1 kg/m2 PA Alondra Crews PA Work Phone: [facility] 07-25-2023 02:59-0400 Body weight 223.6 kg PA Alondra Crews PA Work Phone: [phone] [place] [address] 07-25-2023 01:00-0400 Body temperature 98.4 [degF] PA Alondra Crews PA Work Phone: [facility] 07-25-2023 01:00-0400 Diastolic blood pressure 71 mm[Hg] PA Alondra Crews PA Work Phone: [facility] 07-25-2023 01:00-0400 Heart rate 72 /min PA Alondra Crews PA Work Phone: [facility] 07-25-2023 01:00-0400 Respiratory rate 16 /min PA Alondra Crews PA Work Phone: [facility] 07-25-2023 01:00-0400 SaO2% (BldA) [Mass fraction] 97 % PA Alondra Crews PA Work Phone: [facility] 07-25-2023 01:00-0400 Systolic blood pressure 131 mm[Hg] PA Alondra Crews PA Work Phone: [facility] 07-16-2023 11:01-0400 Body height 165.1 cm Nora Palma LPN [facility], [facility].; [facility] 07-16-2023 11:01-0400 Body mass index (BMI) [Ratio] 77.81 kg/m2 [facility].; [facility], [facility]. 07-16-2023 11:01-0400 Body surface area Derived from formula 2.84 m2 [facility], [facility].; [facility], [facility]. 07-16-2023 11:01-0400 Body temperature 98.2 [degF] [facility].; [employer] [facility], [facility]. Comment on above: Method: Tympanic 07-16-2023 11:01-0400 Body weight 212.1 kg [facility].; [facility]. 07-16-2023 11:01-0400 Diastolic blood pressure 85 mm[Hg] [facility].; [employer] [facility], [facility]. Comment on above: Patient Position: Sitting; Cuff Location : Right Arm; Cuff Size: Large 07-16-2023 11:01-0400 Heart rate 69 /min [facility].; [employer] [facility], [facility]. Comment on above: Pattern: Regular 07-16-2023 11:01-0400 Inhaled oxygen concentration 20 % [facility], [facility].; [employer], [employer] [facility]. Comment on above: Room air 07-16-2023 11:01-0400 Inhaled oxygen concentration 21 % [facility], [facility].; [employer] [facility], [facility]. Comment on above: Room air 07-16-2023 11:01-0400 SaO2% (BldA) [Mass fraction] 94 % [facility], [facility].; [facility]. 07-16-2023 11:01-0400 Systolic blood pressure 125 mm[Hg] [facility], [facility].; [employer], [employer] [facility]. Comment on above: Patient Position: Sitting; Cuff Location : Right Arm; Cuff Size: Large 07-08-2023 10:16-0400 Body temperature 97.8 [degF] [facility] 07-08-2023 10:16-0400 Diastolic blood pressure 46 mm[Hg] [facility] 07-08-2023 10:16-0400 Heart rate 78 /min [facility] 07-08-2023 10:16-0400 Respiratory rate 16 /min [facility] 07-08-2023 10:16-0400 SaO2% (BldA) [Mass fraction] 97 % [facility] 07-08-2023 10:16-0400 Systolic blood pressure 133 mm[Hg] [facility] 07-08-2023 08:20-0400 Body mass index (BMI) [Ratio] 82.7 kg/m2 [facility] 07-08-2023 08:20-0400 Body weight 218.6 kg [facility] 07-08-2023 08:16-0400 Body height 162.56 cm [facility] 2023 14:54-0400 Body temperature 98.3 [degF] Carlo Lyons MANAGER OF FINANCE [facility].; [employer] 2023 14:54-0400 Body weight 223.62 kg Carlo Lyons MANAGER OF FINANCE [employer] [facility].; [employer] 2023 14:54-0400 Diastolic blood pressure 74 mm[Hg] Carlo Lyons MANAGER OF FINANCE [facility] [employer], [employer]. Comment on above: Patient Position: Sitting; Cuff Location : Left Arm; Cuff Size: Standard 2023 14:54-0400 Heart rate 66 /min Carlo Lyons LPN [employer] [facility] [employer], [employer] [facility]. Comment on above: Pattern: Regular 2023 14:54-0400 Systolic blood pressure 125 mm[Hg] Carlo Lyons MANAGER OF FINANCE [employer] [facility] [employer], [employer]. Comment on above: Patient Position: Sitting; Cuff Location : Left Arm; Cuff Size: Standard 02-06-2023 11:28-0500 Body temperature 98.6 [degF] Carlo Lyons MANAGER OF FINANCE [employer] [facility] 02-06-2023 11:28-0500 Body weight 227.25 kg Carlo Lyons LPN [facility], [facility].; [facility] 02-06-2023 11:28-0500 Diastolic blood pressure 76 mm[Hg] Carlo Lyons LPN [facility], [facility]. Comment on above: Patient Position: Sitting; Cuff Location : Left Arm; Cuff Size: Standard 02-06-2023 11:28-0500 Heart rate 71 /min Carlo Lyons LPN [facility], [facility].; [facility], [facility]. Comment on above: Pattern: Regular 02-06-2023 11:28-0500 Systolic blood pressure 154 mm[Hg] Carlo Lyons LPN [facility], [facility].; [facility], [facility]. Comment on above: Patient Position: Sitting; Cuff Location : Left Arm; Cuff Size: Standard 02-02-2023 08:43-0500 Body height 162.56 cm Referring Provider Unknown [facility] DO Work Phone: 02-02-2023 08:43-0500 Body mass index (BMI) [Ratio] 85.83 kg/m2 Referring Provider Unknown BH[facility] DO Work Phone: 02-02-2023 08:43-0500 Body surface area Derived from formula 2.89 m2 Referring Provider Unknown OK[facility] DO Work Phone: 02-02-2023 08:43-0500 Body weight 226.8 kg Referring Provider Unknown JT[facility] DO Work Phone: 02-02-2023 08:43-0500 Diastolic blood pressure 81 mm[Hg] Referring Provider Unknown [facility] DO Work Phone: 02-02-2023 08:43-0500 Heart rate 76 /min Referring Provider Unknown HD[facility]Hg[facility]hjwz[facility] DO Work Phone: 02-02-2023 08:43-0500 Systolic blood pressure 146 mm[Hg] Referring Provider Unknown MZ[facility] DO Work Phone: 09-10-2022 11:00-0400 Body height 165.1 cm Ashley Torres MA [facility] 09-10-2022 11:00-0400 Body mass index (BMI) [Ratio] 82.87 kg/m2 Ashley Torres MA [facility].; [facility] 09-10-2022 11:00-0400 Body surface area Derived from formula 2.92 m2 Ashley Torres MA [facility].; [facility]. 09-10-2022 11:00-0400 Body weight 225.89 kg Ashley Torres MA [facility]. 09-10-2022 11:00-0400 Diastolic blood pressure 56 mm[Hg] Ashley Torres MA [facility].; [facility]. Comment on above: Patient Position: Sitting; Cuff Location : Left Arm; Cuff Size: Large 09-10-2022 11:00-0400 Heart rate 94 /min Ashley Torres MA [facility].; [employer] [facility]. Comment on above: Pattern: Regular 09-10-2022 11:00-0400 Systolic blood pressure 119 mm[Hg] Ashley Torres MA [facility].; [facility]. Comment on above: Patient Position: Sitting; Cuff Location : Left Arm; Cuff Size: Large 02-21-2022 10:55-0400 Body height 165.1 cm Alondra Crews PA-C Work Phone: [facility].; [employer] [facility]. 02-21-2022 10:55-0400 Body mass index (BMI) [Ratio] 79.88 kg/m2 Alondra Crews PA-C Work Phone: [facility].; [employer] 02-21-2022 10:55-0400 Body surface area Derived from formula 2.87 m2 Alondra Crews PA-C Work Phone: [facility].; [email or web address] 02-21-2022 10:55-0400 Body weight 217.73 kg Alondra Liz Crews PA-C Work Phone: [employer]; [email or web address] 02-21-2022 10:55-0400 Diastolic blood pressure 90 mm[Hg] Alondra J Crews PA-C Work Phone: [employer]; [employer]. Comment on above: Patient Position: Sitting; Cuff Location : Left Arm; Cuff Size: Standard 02-21-2022 10:55-0400 Heart rate 76 /min Alondra Liz Crews PA-C Work Phone: [employer]; [employer]. Comment on above: Pattern: Regular 02-21-2022 10:55-0400 Inhaled oxygen concentration 20 % Alondra J Crews PA-C Work Phone: [email or web address]. Comment on above: Room air 02-21-2022 10:55-0400 Inhaled oxygen concentration 21 % Alondra J Crews PA-C Work Phone: [employer]; [employer]. Comment on above: Room air 02-21-2022 10:55-0400 SaO2% (BldA) [Mass fraction] 98 % Alondra Agusto Crews PA-C Work Phone: [employer]; [email or web address] 02-21-2022 10:55-0400 Systolic blood pressure 161 mm[Hg] Alondra J Crews PA-C Work Phone: [employer]; [employer]. Comment on above: Patient Position: Sitting; Cuff Location : Left Arm; Cuff Size: Standard 12-12-2021 13:02-0500 Diastolic blood pressure 76 mm[Hg] PA Alondra Crews PA Work Phone: [facility] Work Phone: 12-12-2021 13:02-0500 Systolic blood pressure 149 mm[Hg] PA Alondra Crews PA Work Phone: [facility] Work Phone: 12-12-2021 12:56-0500 Body height 165.1 cm PA Alondra Crews PA Work Phone: [facility] Work Phone: 12-12-2021 12:56-0500 Body mass index (BMI) [Ratio] 76.2 kg/m2 PA Alondra Crews PA Work Phone: [facility] Work Phone: 12-12-2021 12:56-0500 Body temperature 97 [degF] PA Alondra Crews PA Work Phone: [facility] Work Phone: 12-12-2021 12:56-0500 Body weight 207.74 kg PA Alondra Crews PA Work Phone: [facility] Work Phone: 12-12-2021 12:56-0500 Heart rate 76 /min PA Alondra Crews PA Work Phone: [facility] Work Phone: 12-12-2021 12:56-0500 Respiratory rate 18 /min PA Alondra Crews PA Work Phone: [facility] Work Phone: 12-12-2021 12:56-0500 SaO2% (BldA) [Mass fraction] 97 % PA Alondra Crews PA Work Phone: [facility] Work Phone: 11-15-2021 11:01-0500 Body height 165.1 cm Cadence Palmer LPN [facility], [facility].; [facility], [facility]. 11-15-2021 11:01-0500 Body mass index (BMI) [Ratio] 74.22 kg/m2 Cadence Palmer LPN [facility], [facility].; [facility], [facility] 11-15-2021 11:01-0500 Body surface area Derived from formula 2.78 m2 Cadence Garciamason HUDSON [facility].; [employer] 11-15-2021 11:01-0500 Body weight 202.31 kg Cadence Palmer BECCA [facility].; [employer] 11-15-2021 11:01-0500 Diastolic blood pressure 80 mm[Hg] Cadence Garciamason HUDSON [facility] [employer] Comment on above: Patient Position: Sitting; Cuff Location : Left Arm; Cuff Size: Standard 11-15-2021 11:01-0500 Heart rate 67 /min Cadence Garciamason MANAGER OF FINANCE [facility].; [employer] Comment on above: Pattern: Regular 11-15-2021 11:01-0500 Inhaled oxygen concentration 20 % Cadencedoris Garciamason MANAGER OF FINANCE [facility].; [employer] Comment on above: Room air 11-15-2021 11:01-0500 Inhaled oxygen concentration 21 % Cadence Garciamason HUDSON [employer] [facility].; [employer], [employer]. Comment on above: Room air 11-15-2021 11:01-0500 SaO2% (BldA) [Mass fraction] 99 % Cadencemichael Palmer MANAGER OF FINANCE [facility] [employer] 11-15-2021 11:01-0500 Systolic blood pressure 147 mm[Hg] Cadence Garciamason HUDSON [employer] [facility], [facility].; [employer], [employer]. Comment on above: Patient Position: Sitting; Cuff Location : Left Arm; Cuff Size: Standard 10-11-2021 14:40-0500 Body height 165.1 cm Alondra Crews PA-C Work Phone: [employer].; [employer] 10-11-2021 14:40-0500 Body mass index (BMI) [Ratio] 74.38 kg/m2 Alondra ZABALA-Jennifer Work Phone: [facility].; [employer] 10-11-2021 14:40-0500 Body surface area Derived from formula 2.78 m2 Alondra Liz Crews PA-C Work Phone: [employer]; [email or web address] 10-11-2021 14:40-0500 Body weight 202.76 kg Alondra Liz Crews PA-C Work Phone: [email or web address] 10-11-2021 14:40-0500 Diastolic blood pressure 76 mm[Hg] Alondra Liz Crews PA-C Work Phone: [email or web address]. Comment on above: Patient Position: Sitting; Cuff Location : Left Arm; Cuff Size: Standard 10-11-2021 14:40-0500 Heart rate 81 /min Alondra Liz Crews PA-C Work Phone: [employer]; [employer]. Comment on above: Pattern: Regular 10-11-2021 14:40-0500 Inhaled oxygen concentration 20 % Alondra Liz Crews PA-C Work Phone: [employer]; [employer]. Comment on above: Room air 10-11-2021 14:40-0500 Inhaled oxygen concentration 21 % Alondra Agusto Crews PA-C Work Phone: [employer]; [employer]. Comment on above: Room air 10-11-2021 14:40-0500 SaO2% (BldA) [Mass fraction] 96 % Alondra Liz Crews PA-C Work Phone: [email or web address]. 10-11-2021 14:40-0500 Systolic blood pressure 137 mm[Hg] Alondra Agusto Crews PA-C Work Phone: [email or web address]. Comment on above: Patient Position: Sitting; Cuff Location : Left Arm; Cuff Size: Standard 09-12-2021 14:33-0400 Body height 165.1 cm Jazlyn Andersonach [facility], [facility].; [employer] [facility] 09-12-2021 14:33-0400 Body mass index (BMI) [Ratio] 71.56 kg/m2 Jazlyn Andersonach [facility], [facility].; [employer] [facility]. 09-12-2021 14:33-0400 Body surface area Derived from formula 2.74 m2 Jazlyn Carllabach [facility], [facility].; [employer] [facility]. 09-12-2021 14:33-0400 Body weight 195.05 kg Jazlyn Marie [facility].; [email or web address] 09-12-2021 14:33-0400 Diastolic blood pressure 87 mm[Hg] Jazlyn Andersonach [facility].; [email or web address] Comment on above: Patient Position: Sitting; Cuff Location : Right Arm; Cuff Size: Standard 09-12-2021 14:33-0400 Heart rate 74 /min Jazlyn Carllabach [facility], [facility].; [email or web address] Comment on above: Pattern: Regular 09-12-2021 14:33-0400 Inhaled oxygen concentration 20 % Jazlyn Liu Frank [facility].; [email or web address] Comment on above: Room air 09-12-2021 14:33-0400 Inhaled oxygen concentration 21 % Jazlyn Carllabach [facility], [facility].; [email or web address] Comment on above: Room air 09-12-2021 14:33-0400 SaO2% (BldA) [Mass fraction] 93 % Jazlyn Andersonach [facility] [employer] [facility].; [email or web address]. 09-12-2021 14:33-0400 Systolic blood pressure 150 mm[Hg] Jazlyn Andersonach [facility] [employer] [facility].; [email or web address]. Comment on above: Patient Position: Sitting; Cuff Location : Right Arm; Cuff Size: Standard 08-29-2021 13:07-0400 Body height 165.1 cm Jazlyn [facility]llabach [facility] [place] [employer] [facility]. 08-29-2021 13:07-0400 Body mass index (BMI) [Ratio] 74.05 kg/m2 Jazlyn Carllabach [facility], [facility].; [place] [employer] [facility], Inc. 08-29-2021 13:07-0400 Body surface area Derived from formula 2.78 m2 Jazlyn Liu Frank HUDSON [facility], [facility].; [place] [employer] [facility]. 08-29-2021 13:07-0400 Body temperature 98.7 [degF] Jazlyn [facility]llabach [facility].; [email or web address]. Comment on above: Method: Tympanic 08-29-2021 13:07-0400 Body weight 201.85 kg Jazlyn Carllabach MANAGER OF FINANCE [facility], [facility].; [email or web address]. 08-29-2021 13:07-0400 Diastolic blood pressure 76 mm[Hg] Jazlyn Liu Frank MANAGER OF FINANCE [facility].; [email or web address]. Comment on above: Patient Position: Sitting; Cuff Location : Left Arm; Cuff Size: Standard 08-29-2021 13:07-0400 Heart rate 75 /min Jazlyn Carllabach MANAGER OF FINANCE [facility].; [email or web address]. Comment on above: Pattern: Regular 08-29-2021 13:07-0400 Inhaled oxygen concentration 20 % Jazlyn Liu Frank MANAGER OF FINANCE [facility], [facility].; [email or web address]. Comment on above: Room air 08-29-2021 13:07-0400 Inhaled oxygen concentration 21 % Jazlyn Liu Frank MANAGER OF FINANCE [facility].; [email or web address]. Comment on above: Room air 08-29-2021 13:07-0400 SaO2% (BldA) [Mass fraction] 93 % Jazlyn Ashli Frank MANAGER OF FINANCE [facility], [facility].; [employer] 08-29-2021 13:07-0400 Systolic blood pressure 144 mm[Hg] Jazlyn Liu Frank HUDSON [facility].; [email or web address]. Comment on above: Patient Position: Sitting; Cuff Location : Left Arm; Cuff Size: Standard 08-12-2021 13:54-0400 Body height 165.1 cm Alondra Liz Crews PA-C Work Phone: [employer]; [employer]. 08-12-2021 13:54-0400 Body mass index (BMI) [Ratio] 69.39 kg/m2 Alondra Liz Crews PA-C Work Phone: [employer]; [employer]. 08-12-2021 13:54-0400 Body surface area Derived from formula 2.7 m2 Alondra Liz Crews PA-C Work Phone: [employer]; [employer]. 08-12-2021 13:54-0400 Body weight 189.15 kg Alondra Liz Crews PA-C Work Phone: [employer]; [employer] 08-12-2021 13:54-0400 Diastolic blood pressure 74 mm[Hg] Alondra Liz Crews PA-C Work Phone: [employer]; [employer]. Comment on above: Patient Position: Sitting; Cuff Location : Left Arm; Cuff Size: Standard 08-12-2021 13:54-0400 Heart rate 110 /min Alondra Liz Crews PA-C Work Phone: [employer]; [employer]. Comment on above: Pattern: Regular 08-12-2021 13:54-0400 Inhaled oxygen concentration 20 % Alondra Agusto Crews PA-C Work Phone: [employer]; [employer]. Comment on above: Room air 08-12-2021 13:54-0400 Inhaled oxygen concentration 21 % Alondra J Crews PA-C Work Phone: [employer]; [employer] Comment on above: Room air 08-12-2021 13:54-0400 SaO2% (BldA) [Mass fraction] 95 % Alondra Liz Mars ZABALA-Jennifer Work Phone: [facility].; [facility]. 08-12-2021 13:54-0400 Systolic blood pressure 118 mm[Hg] Alondra Crews VJ-Jennifer Work Phone: [facility].; [facility] [facility]. Comment on above: Patient Position: Sitting; Cuff Location : Left Arm; Cuff Size: Standard 07-03-2021 17:22-0400 Body temperature 98.8 [degF] Stephen Issa DO Work Phone: [employer] Work Phone: 07-03-2021 17:22-0400 Diastolic blood pressure 75 mm[Hg] Stephen Issa DO Work Phone: [employer] Work Phone: 07-03-2021 17:22-0400 Heart rate 88 /min Stephen Issa DO Work Phone: [facility] Work Phone: 07-03-2021 17:22-0400 Respiratory rate 16 /min Stephen Issa DO Work Phone: [facility] Work Phone: 07-03-2021 17:22-0400 SaO2% (BldA) [Mass fraction] 93 % Stephen Issa DO Work Phone: [facility] Work Phone: 07-03-2021 17:22-0400 Systolic blood pressure 147 mm[Hg] Stephen Issa DO Work Phone: [employer] Work Phone: 07-03-2021 06:52-0400 Body mass index (BMI) [Ratio] 69.56 kg/m2 Stephen Issa DO Work Phone: [employer] Work Phone: 07-03-2021 06:52-0400 Body weight 189.6 kg Stephen Issa DO Work Phone: [facility] Work Phone: 06-25-2021 14:28-0400 Body height 165.1 cm Stephen Parsons DO Work Phone: [facility] Work Phone: 06-03-2021 08:00-0400 Body temperature 97.9 [degF] Nawaf Dalton MD Work Phone: [facility] 06-03-2021 08:00-0400 Diastolic blood pressure 91 mm[Hg] Nawaf Dalton MD Work Phone: [facility] 06-03-2021 08:00-0400 Heart rate 62 /min Nawaf Dalton MD Work Phone: [facility] 06-03-2021 08:00-0400 Respiratory rate 37 /min Nawaf Dalton MD Work Phone: [facility] 06-03-2021 08:00-0400 SaO2% (BldA) [Mass fraction] 93 % Nawaf Dalton MD Work Phone: [facility] 06-03-2021 08:00-0400 Systolic blood pressure 159 mm[Hg] Nawaf Dalton MD Work Phone: [facility] 06-02-2021 15:47-0400 SaO2% (BldA) [Mass fraction] 96.5 % Joe Sommers [facility] 06-02-2021 15:41-0400 Body height 165.1 cm Nawaf Dalton MD Work Phone: [facility] 06-02-2021 15:41-0400 Body mass index (BMI) [Ratio] 73.22 kg/m2 Nawaf Dalton MD Work Phone: [facility] 06-02-2021 15:41-0400 Body weight 199.58 kg Nawaf Dalton MD Work Phone: [facility] 05-17-2021 14:30-0400 Body height 165.1 cm Jazlyn Andersonach [facility], [facility].; [place] [employer] [facility], [facility]. 05-17-2021 14:30-0400 Body mass index (BMI) [Ratio] 78.21 kg/m2 Jazlyn Marie [facility], [facility].; [facility] 05-17-2021 14:30-0400 Body surface area Derived from formula 2.84 m2 Jazlyn Liu Frank [facility], [facility].; [employer] [employer] [facility], [facility]. 05-17-2021 14:30-0400 Body weight 213.19 kg Jazlyn Marie [facility], [facility].; [employer] [facility], [facility]. 05-17-2021 14:30-0400 Diastolic blood pressure 80 mm[Hg] Jazlyn Marie [facility], [facility].; [employer] [facility], [facility]. Comment on above: Patient Position: Sitting; Cuff Location : Left Arm; Cuff Size: Standard 05-17-2021 14:30-0400 Heart rate 83 /min Jazlyn Marie [facility], [facility].; [employer] [place], [facility]. Comment on above: Pattern: Regular 05-17-2021 14:30-0400 Systolic blood pressure 132 mm[Hg] Jazlyn Marie [facility], [facility].; [employer] [facility], [facility]. Comment on above: Patient Position: Sitting; Cuff Location : Left Arm; Cuff Size: Standard 03-14-2021 [id number] Body height 165.1 cm Alondra Crews PA-C Work Phone: [employer] [employer] [facility].; [employer] [facility]. 03-14-2021 14:11-0400 Body mass index (BMI) [Ratio] 75.88 kg/m2 Alondra Crews PA-C Work Phone: [employer] [facility].; [employer] [facility]. 03-14-2021 14:11-0400 Body surface area Derived from formula 2.81 m2 Alondra Crews PA-C Work Phone: [employer] [facility].; [employer] 03-14-2021 14:11-0400 Body weight 206.84 kg Alondra Crews PA-C Work Phone: [employer]; [employer] 03-14-2021 14:11-0400 Diastolic blood pressure 69 mm[Hg] Alondra Crews PA-C Work Phone: [employer]; [employer] Comment on above: Patient Position: Sitting; Cuff Location : Left Arm; Cuff Size: Standard 03-14-2021 14:11-0400 Heart rate 92 /min Alondra Crews PA-C Work Phone: [employer]; [employer] Comment on above: Pattern: Regular 03-14-2021 14:11-0400 Systolic blood pressure 130 mm[Hg] Alondra Crews PA-C Work Phone: [employer]; [employer] Comment on above: Patient Position: Sitting; Cuff Location : Left Arm; Cuff Size: Standard 06-01-2020 03:00-0400 BP Diastolic 81 mm[Hg] [facility] [place] 06-01-2020 03:00-0400 BP Systolic 137 mm[Hg] [place], [place] 06-01-2020 03:00-0400 Respiratory Rate 17 /min [facility] [employer] [place], [place] 06-01-2020 00:45-0400 BMI (Body Mass Index) 69.56 kg/m2 [place], [place] 06-01-2020 00:45-0400 Body Temperature 98.8 [degF] [facility] [place] 06-01-2020 00:45-0400 Body weight 189.6 kg [place], [place] 06-01-2020 00:45-0400 Height 165.1 cm [place] 06-01-2020 00:45-0400 Pulse (Heart Rate) 71 /min [place], [place] 06-01-2020 00:45-0400 Pulse Oximetry 98 % [place], [place] Encounters Encounter Date Encounter Type Care Provider Facility Start: 06-09-2025 End: 06-09-2025 Office outpatient visit 25 minutes Alondra Crews PA-C Work Phone: [employer]. Start: 06-09-2025 Follow-up encounter Alondra li PA-C Work Phone: [employer]. Start: 12-21-2024 End: 12-21-2024 Medication Alondra Crews PA-C Work Phone: [employer]. Start: 12-21-2024 Review Alondraboston Piedraer PA-C Work Phone: [employer]. Start: 11-18-2024 ambulatory YAMILE PEREZ [facility] Start: 11-11-2024 End: 11-11-2024 ambulatory ALONDRA CREWS [facility] Start: 11-11-2024 End: 11-11-2024 Office outpatient new 60 minutes Alondra Crews PA-C Work Phone: [facility] Comment on above: Positive LIZ (antinu clear antibody) (Primary Dx); Arthralgia, unspecified joint; CRP elevated; Lymphedema; Recurrent cellulitis Start: 08-05-2024 End: 08-05-2024 Medication Alondra Piedraer PA-C Work Phone: [employer]. Start: 06-24-2024 End: 06-24-2024 Orders Alondra Piedraer PA-C Work Phone: [employer]. Start: 06-15-2024 End: 06-15-2024 Medication Alondraboston Piedraer PA-C Work Phone: [employer]. Start: 06-15-2024 Review Alondraboston Piedraer PA-C Work Phone: [employer]. Start: 06-15-2024 End: 06-15-2024 Orders Alondra Piedraer PA-C Work Phone: [employer]. Start: 06-13-2024 End: 06-13-2024 Patient encounter procedure Alondra Crews PA-C Work Phone: [employer] [facility] Start: 05-12-2024 End: 05-12-2024 Office outpatient visit 25 minutes Alondra Crews PA-C Work Phone: [employer] [facility] Start: 05-10-2024 End: 05-10-2024 Telephone follow-up Alondra ZABALA-C Work Phone: [facility] Start: 05-04-2024 ambulatory Calderon nunez Sky Facili ty:[facility] Start: 05-04-2024 End: 05-09-2024 Evaluation and management of inpatient Calderon Ojeda Facility:[facility] Start: 04-15-2024 End: 04-15-2024 Office outpatient visit 15 minutes Alondra ZABALA-C Work Phone: [email or web address] Start: 04-11-2024 End: 04-11-2024 Telephone follow-up Alondra ZABALA-C Work Phone: [employer] [facility] Start: 04-08-2024 Non-patient / Non-visit PA Alondra Crews PA Work Phone: [facility] Work Phone: Start: 04-07-2024 Non-patient / Non-visit PA Alondra Crews PA Work Phone: [facility] Work Phone: Start: 04-06-2024 Non-patient / Non-visit PA Alondra Crews PA Work Phone: [facility] Work Phone: Start: 04-05-2024 ambulatory Antoni Osman Facility:[facility] Start: 04-05-2024 Non-patient / Non-visit PA Alondra Crews PA Work Phone: [facility] Start: 04-04-2024 ambulatory Calderon enrique Sky Facili ty:[facility] Start: 04-04-2024 End: 04-08-2024 Evaluation and management of inpatient [facility] 3 Work Phone: Start: 04-01-2024 End: 04-01-2024 Office outpatient visit 25 minutes Alondra Crews PA-C Work Phone: [employer] Start: 09-04-2023 End: 09-04-2023 ambulatory HELDER TAVERA [facility] Start: 09-04-2023 End: 09-04-2023 Office outpatient new 45 minutes Helder Tavera MD Work Phone: [facility] Disease Comment on above: Morbid obesity (HCC) (Primary Dx); Recurrent cellulitis of lower extremity; Chronic acquired lymphedema Start: 08-26-2023 End: 08-26-2023 Patient encounter procedure Alondra Crews PA-C Work Phone: [employer] Start: 08-21-2023 Non-patient / Non-visit PA Alondra Crews PA Work Phone: [facility] Work Phone: Start: 08-20-2023 Non-patient / Non-visit PA Alondra Crews PA Work Phone: [facility] Work Phone: Start: 08-19-2023 Non-patient / Non-visit PA Alondra Crews PA Work Phone: [facility] Work Phone: Start: 08-18-2023 ambulatory Arthur Thompson Facility:[facility] Start: 08-18-2023 End: 08-21-2023 Evaluation and management of inpatient PA Alondra Crews PA Work Phone: [facility] Work Phone: Start: 07-31-2023 End: 07-31-2023 Office outpatient visit 15 minutes Alondra Crews PA-C Work Phone: [employer] Start: 07-31-2023 Non-patient / Non-visit PA Alondra Crews PA Work Phone: [facility] Work Phone: Start: 07-30-2023 Non-patient / Non-visit PA Alondra Crews PA Work Phone: [facility] Work Phone: Start: 07-29-2023 [facility] Facility:[facility] Start: 07-29-2023 Non-patient / Non-visit PA Alondra Crews PA Work Phone: [facility] Start: 07-29-2023 Non-patient / Non-visit PA Alondra Crews PA [facility] Work Phone: Start: 07-28-2023 Non-patient / Non-visit PA Alondra Crews PA Work Phone: [facility] Work Phone: Start: 07-27-2023 Non-patient / Non-visit PA Alondra Crews PA Work Phone: [facility] Work Phone: Start: 07-26-2023 Non-patient / Non-visit PA Alondra Crews PA Work Phone: [facility] Work Phone: Start: 07-25-2023 Non-patient / Non-visit PA Alondra Crews PA Work Phone: [facility] Work Phone: Start: 07-25-2023 End: 07-31-2023 Evaluation and management of inpatient PA Alondra Crews PA Work Phone: [facility] 3 Work Phone: Start: 07-16-2023 End: 07-16-2023 Office outpatient visit 15 minutes Alondra Crews PA-C Work Phone: [employer] Start: 07-08-2023 Non-patient / Non-visit PA Alondra ZABALA Work Phone: [facility] Start: 07-08-2023 End: 07-08-2023 Emergency department patient visit [facility] Work Phone: Start: 05-06-2023 End: 05-06-2023 Medication Alondra Crews PA-C Work Phone: [employer] Start: 2023 End: 2023 Patient encounter procedure Alondra Crews PA-C Work Phone: [employer] Start: 02-06-2023 End: 02-06-2023 Patient encounter procedure Alondra Crews PA-C Work Phone: [employer] Start: 02-02-2023 Patient encounter procedure Referring Provider Unknown [facility] DO Work Phone: Start: 02-02-[address] Tennille Huertas [facility] [id number] Start: 09-10-2022 End: 09-10-2022 Office outpatient visit 25 minutes Alondra Crews PA-C Work Phone: [employer] Start: 04-04-2022 End: 04-04-2022 Patient encounter procedure VJ ZABALA Work Phone: [facility] Start: 02-26-2022 End: 02-26-2022 Subsequent hospital visit by physician Alondra Crews PA-C Work Phone: [facility] Ultrasound Comment on above: Arrived Start: 02-26-2022 End: 02-26-2022 Orders Alondra Crews PA-C Work Phone: [employer] Start: 02-21-2022 End: 02-21-2022 Office outpatient visit 25 minutes Alondra Crews PA-C Work Phone: [employer] Start: 01-27-2022 End: 01-27-2022 Orders Alondra Crews PA-C Work Phone: [employer]. Start: 12-12-2021 End: 12-12-2021 Patient encounter procedure PA Alondra Crews PA [facility] Start: 11-15-2021 End: 11-15-2021 Office outpatient visit 25 minutes Alondra Crews PA-C Work Phone: [employer] Start: 10-11-2021 End: 10-11-2021 Patient encounter procedure Alondar Crews PA-C Work Phone: [employer] Start: 09-12-2021 End: 09-12-2021 Office outpatient visit 25 minutes Alondra Crews PA-C Work Phone: [employer] Start: 08-29-2021 End: 08-29-2021 Office outpatient visit 25 minutes Alondra Crews PA-C Work Phone: [employer] Start: 08-12-2021 End: 08-12-2021 Historical Summary Alondra Crews PA-C Work Phone: [employer] Start: 08-12-2021 End: 08-12-2021 Patient encounter procedure Alondra Crews PA-C Work Phone: [employer] Start: 08-06-2021 End: 08-06-2021 Telephone follow-up Alondra Crews PA-C Work Phone: [employer] Start: 06-03-2021 End: 07-03-2021 Evaluation and management of inpatient Stephen Parsons DO Work Phone: [facility] Start: 06-02-2021 End: 06-03-2021 Evaluation and management of inpatient Nawaf Dalton MD Work Phone: [facility] Comment on above: Pneumonia due to 201 9 novel coronavirus Start: 05-20-2021 End: 05-20-2021 Orders Alondra Crews PA-C Work Phone: [facility] Start: 05-20-2021 End: 05-20-2021 Medication Alondra Crews PA-C Work Phone: [employer] Start: 05-17-2021 [facility] Start: 05-17-2021 End: 05-17-2021 Patient encounter procedure Alondra Crews PA-C Work Phone: [employer] Start: 05-09-2021 End: 05-09-2021 Orders Alondra Crews PA-C Work Phone: [employer] Start: 04-05-2021 End: 04-05-2021 Subsequent hospital visit by physician Alondra Crews PA-C Work Phone: [facility] Echocardiography Comment on above: Arrived Start: 03-14-2021 End: 03-14-2021 Office outpatient new 45 minutes Alondra Crews PA-C Work Phone: [employer] Start: 02-06-2021 End: 02-06-2021 Orders Only Svitlana Ramirez Reagan Work Phone: [facility] Start: 05-31-2020 End: 06-01-2020 Emergency department patient visit [facility] Emergency Dept Comment on above: Flank pain (Primary Dx) Start: 03-01-2018 Ambulatory Fanta Worrell y:[place] Start: 03-01-2018 End: 03-01-2018 Ambulatory Herminia Jones Work Phone: [facility] Preoperative state Referring Pro vider Unknown [facility] DO Work Phone: Procedures Date Procedure Procedure Detail Performing Clinician Start: 08-17-2023 Plain chest X-ray VJ ZABALA Work Phone: Start: 07-28-2023 Plain chest X-ray PA Me shilo Mars ZABALA Work Phone: Start: 07-26-2023 Ultrasonography of limb PA Alondra Mars ZABALA Work Phone: Start: 07-25-2023 Bacteria identified in Blood by Culture VJ FabianAlondra Mars ZABALA Work Phone: Start: 07-08-2023 [...] Start: 06-26-2021 Manual Differential panel - Blood Michelle DO Work Phone: Start: 06-26-2021 Drug screen [...] DO Work Phone: Start: 06-23-2021 Assay of [id number] Kyung Wong DO Work Phone: Start: 06-23-2021 [...] on above: Performed By: #### C /BLT ####[facility] [place] [address] [id number] Start: 06-19-2021 Gluc bld gluc mntr d [...] K Michelle Petty DO Work Phone: Start: 06-19-2021 End: 06-19-2021 Calcium ionized Michelle Petty DO Work Phone: Start: 06-19-2021 Hepatic function panel Michelle DO Work Phone: Start: 06-19-2021 BLOOD GAS, ARTERIAL Ambrosio Allred MD Work Phone: Start: 06-19-2021 MANAGER HAIR CLINICAL BEDSIDE SWALLOW EVALUATION & TREATMENT Anastacia [...] Start: 06-08-2021 BLOOD GAS, ARTERIAL Tif justino Snoi DO Work Phone: Start: 06-08-2021 Procalcitonin (pct) [...] Start: 06-03-2021 Comprehensive metabo lic panel Flash ZBAALA-C Work Phone: Start: 06-03-2021 Lipid 1996 panel [...] LINE WITH OR WITHOUT PAC Al Stack BREAKER UP-DIRECTOR OF FRONT OFFICE Work Phone: Start: 06-02-2021 Radiologic exam ches [...] 1996 panel - S poppy or Plasma Alondra ZABALA-C Work Phone: Start: 03-21-2021 End: 03-21-2021 Lab findings surveillance Nora parikh MANAGER OF FINANCE Comment on above: 91 Start: 03-21-2021 End: 03-21-2021 Lipid panel Nora Palma L PN Comment on above: TC 148, HDL 46, LDL 90 Start: 03-14-2021 End: 05-09-2021 TTE w or wo fol wcon,Doppler Alondra Crews PA-C Work Phone: Start: 03-14-2021 End: 03-14-2021 Thyrotropin [Units/volume] in Serum or Plasma Nora Pateler MANAGER OF FINANCE Comment on above: 2.90 Start: 06-01-2020 Ct [...] Start: 03-22-2026 Fasting lipid profile LIPID SCREENIN [facility] Start: 06-09-2025 Hemoglobin glycosyla alek a1c HEMOGLOBIN A1C* (73666) Start: 09-Jun-2025 14:09-04:00 Request [employer].; [employer]. Start: 06-09-2025 Assay of thyroid stimulating hormone tsh TSH W/ REFL FREE T4 ([id number]) ([id number]) Start: 09-Jun-2025 14:09-04:00 Request [employer] Start: 06-09-2025 Lipid panel LIPID PANEL (8 0061) Start: 09-Jun-2025 14:09-04:00 Request [employer].; [employer]. Start: 06-09-2025 Comprehensive metabo lic panel CMP w/ GFR* ([id number]) Start: 09-Jun-2025 14:08-04:00 Request [employer].; [employer]. Start: 06-09-2025 Blood count complete auto&auto difrntl wbc CBC, PLATELETS & AUT DIFF (F) ([id number]) Start: 09-Jun-2025 14:08-04:00 Request [employer] Start: 06-09-2025 Patient encounter procedure Medical; EXTENDED RTN - htn/other issues [employer]. Start: 09-Jun-2025 13:10-04:00 RAYNE Crews Appointment Request [employer]. Start: 02-09-2025 End: 02-09-2025 Patient encounter procedure 02/09/2025 9:30 AM EDT Office Visit [facility] [address] [facility] [address] [place] [address] Selin Yamile Perez, [address] [address] [facility] Orthopedic [facility] Sports Medicine Start: 07-31-2024 COVID-19 Vaccine ( season) COVID-19 Vaccine ( season) [facility] Start: 07-31-2024 Influenza vaccination Influenza Vacc ine (#1) [facility] Start: 06-24-2024 Lipid panel LIPID PANEL (8 0061) Start: 24-Jun-2024 Request [employer]. Start: 06-24-2024 Comprehensive metabo lic panel [employer]. Start: 06-24-2024 Nursing evaluation o f patient and report Medical; Nurse visit - CMP mjp [employer]. Start: 24-Jun-2024 10:30-04:00 NURSE, FLOAT Appointment Request [employer]. Start: 06-14-2024 Lipid panel LIPID PANEL (8 0061) Start: 14-Jun-2024 Request [employer]. Start: 06-13-2024 Cyanocobalamin vitam in b-12 VITAMIN B-12 SERUM (12765) Start: 13-Jun-2024 15:49-04:00 Request [employer]; [employer]. Start: 06-13-2024 Hemoglobin glycosyla alek a1c HEMOGLOBIN A1C* (62934) Start: 13-Jun-2024 15:48-04:00 Request [employer]; [employer]. Start: 06-13-2024 Assay of blood/uric acid URIC ACID BLOOD (86038) Start: 13-Jun-2024 15:48-04:00 Request [employer]; [employer]. Start: 06-13-2024 Assay of thyroid stimulating hormone tsh TSH W/ REFL FREE T4 ([id number],[id number]) (22270) Start: 13-Jun-2024 15:48-04:00 Request [employer]; [employer] Start: 06-13-2024 Comprehensive metabo lic panel CMP w/ GFR* (06285) Start: 13-Jun-2024 15:48-04:00 Request [employer]; [employer]. Start: 06-13-2024 Blood count complete auto&auto difrntl wbc CBC, PLATELETS & AUT DIFF (F) (49759) Start: 13-Jun-2024 15:48-04:00 Request [employer]; [employer]. Start: 06-13-2024 Sedimentation rate r bc automated ESR (SED RATE) (81294) Start: 13-Jun-2024 15:47-04:00 Request [employer]; [employer]. Start: 06-13-2024 C-reactive protein C-REACTIVE PROTEIN (46752) Start: 13-Jun-2024 15:47-04:00 Request [employer]; [employer]. Start: 06-13-2024 Antinuclear antibodies liz LIZ TITER AND PATTERN (33237) Start: 13-Jun-2024 15:47-04:00 Request [employer]; [employer]. Start: 06-03-2024 Diabetes mellitus screening Diabetes Screening [facility] Start: 05-12-2024 Patient encounter procedure Medical; Hospital F/U - [facility] Cellulitis IPFU 05/09 [facility] [employer] Start: 12-May-2024 10:00-04:00 RAYNE Crews Appointment Request [employer]. Start: 04-15-2024 Patient encounter procedure Medical; [facility] 04/08, bilat cellulitis, [facility] [employer] Start: 15-Apr-2024 10:30-04:00 RAYNE Crews Appointment Request [employer]. Start: 04-08-2024 Patient discharge [facility] Start: 04-06-2024 Consultation [facility] Start: 04-05-2024 [facility] Start: 04-04-2024 Following clinical p athway protocol [facility] Start: 04-04-2024 Admission procedure [facility] Start: 04-04-2024 Hospital admission, emergency, from emergency room, medical nature [facility] Start: 04-04-2024 Blood culture [facility] Start: 04-04-2024 Bacteria identified in Blood by Culture Blood Culture [facility] Start: 04-01-2024 Cyanocobalamin vitam in b-12 VITAMIN B-12 SERUM (49291) Start: 01-Apr-2024 11:48-04:00 Request [employer] Start: 04-01-2024 Assay of thyroid stimulating hormone tsh TSH W/ REFL FREE T4 (71543,37773) (25492) Start: 01-Apr-2024 11:48-04:00 Request [employer] Start: 04-01-2024 Hemoglobin glycosyla alek a1c HEMOGLOBIN A1C* (47070) Start: 01-Apr-2024 11:48-04:00 Request [employer] Start: 04-01-2024 Lipid panel LIPID PANEL (8 0061) Start: 01-Apr-2024 11:48-04:00 Request [employer]. Start: 04-01-2024 Comprehensive metabo lic panel CMP w/ GFR* (46900) Start: 01-Apr-2024 11:48-04:00 [facility] [employer] [facility] Start: 04-01-2024 Blood count complete auto&auto difrntl wbc CBC, PLATELETS & AUT DIFF (F) (48302) Start: 01-Apr-2024 11:48-04:00 [facility] [employer] [facility]; [employer] [facility] Start: 04-01-2024 Patient encounter procedure Medical; [facility] Start: 01-Apr-2024 10:50-04:00 RAYNE Crews [facility]ment [facility] Start: 08-21-2023 Patient discharge [facility] Start: 08-18-2023 Consultation [facility] Start: 08-18-2023 Blood chemistry [facility] Start: 08-18-2023 Following clinical p athway protocol [facility] Start: 08-18-2023 [facility] Start: 08-18-2023 Assessment of risk o f venous thromboembolism [facility] Start: 08-18-2023 Insertion of cathete r into peripheral vein [facility] Start: 08-18-2023 Providing care accor ding to standard [facility] Start: 08-18-2023 Provision of activit y privileges [facility] Start: 08-18-2023 [facility] Start: 08-18-2023 Verification routine [facility] Start: 08-18-2023 Admission procedure [facility] Start: 08-18-2023 Patient referral to dietitian [facility] Start: 08-17-2023 Blood culture [facility] Start: 08-17-2023 [facility] Start: 08-17-2023 Bacteria identified in Blood by Culture Blood Culture [facility] Start: 07-31-2023 Influenza vaccination Influenza Vacc ine (#1) [facility] Start: 07-31-2023 Patient discharge [facility] Start: 07-30-2023 Dual pressure sponta neous ventilation support [facility] Start: 07-30-2023 [facility] Start: 07-29-2023 Dual pressure sponta neous ventilation support [facility] Start: 07-28-2023 Dual pressure sponta neous ventilation support [facility] Start: 07-27-2023 Dual pressure sponta neous ventilation support [facility] Start: 07-27-2023 Consultation [facility] Start: 07-26-2023 Dual pressure sponta neous ventilation support [facility] Start: 07-25-2023 End: 07-26-2023 Dual pressure spontaneous ventilation support [facility] Start: 07-25-2023 [facility] Start: 07-25-2023 [facility] Start: 07-25-2023 Thyroid stimulating hormone measurement [facility] Start: 07-25-2023 [facility] Start: 07-25-2023 Following clinical p athway protocol [facility] Start: 07-25-2023 Assessment of risk o f venous thromboembolism [facility] Start: 07-25-2023 Catheterization of vein [facility] Start: 07-25-2023 Consultation for treatment [facility] Start: 07-25-2023 Continuous pulse oximetry [facility] Start: 07-25-2023 Elevation of affecte d extremity [facility] Start: 07-25-2023 Fluid intake encouragement [facility] Start: 07-25-2023 Incentive spirometry [facility] Start: 07-25-2023 Insertion of cathete r into peripheral vein [facility] Start: 07-25-2023 Oxygen therapy [facility] Start: 07-25-2023 Providing care accor ding to standard [facility] Start: 07-25-2023 Provision of activit y privileges [facility] Start: 07-25-2023 Referral to service [facility] Start: 07-25-2023 [facility] Start: 07-25-2023 Bacterial nucleic ac id assay [facility] Start: 07-25-2023 [facility] Start: 07-25-2023 Verification routine [facility] Start: 07-25-2023 Admission procedure [facility] Start: 07-25-2023 Patient referral to dietitian [facility] Start: 07-08-2023 Bacteria identified in Blood by Culture Blood Culture [facility] Start: 07-08-2023 Blood culture [facility] Start: 02-26-2023 VIRFUVHOME, Provider : Peggy Zepeda, Status: Pen, Time: 1:30 PM VIRFUVHOME, Provider: Peggy Zepeda, Status: Pen, Time: 1:30 PM [facility] DO Work Phone: Start: 02-09-2023 VIRNPVCLSH, Provider : DORIE RD,YOLIS MENENDEZ, Status: Pen, Time: 6:30 PM VIRNPVCLSH, Provider: DORIE RD,YOLIS MENENDEZ, Status: Pen, Time: 6:30 PM [facility] DO Work Phone: Start: 02-05-2023 Zoster Vaccines (2 of 2) Zoste r Vaccines (2 of 2) [facility] [employer] Start: 07-03-2022 Creatinine measurement [employer] Phone: Start: 07-03-2022 [employer] Work Phone: Start: 06-03-2022 Potassium [Moles/vol ume] in Serum or Plasma [facility] Exposed Vocals [facility] Start: 02-21-2022 End: 04-07-2022 Myocardial spect multiple studies Lexiscan Cardiolite Stress Test (32580) Date: 21-Feb-2022 Comments: Nuclear stress test if not contraindicated. [facility], [facility]. Comment on above: Nuclear stress test if not contraindicated. Start: 08-12-2021 Brncdilat rspse spmt ry pre&post-brncdilat admn PFT Protocol (00216) -- not in office Start: 12-Aug-2021 [facility] [employer] Start: 07-31-2021 Influenza vaccination A Nephros Start: 07-31-2021 [facility] Work Phone: Start: 07-31-2020 Influenza vaccination Flu vaccine (# 1) [facility] [place] Start: 02-12-2018 Colonoscopy COLORECTAL CAN CER SCREENING DISCUSSION [facility] Start: 02-12-2018 Screening for malign ant neoplasm of breast [facility] Work Phone: Start: 02-12-2018 Screening for malign ant neoplasm of colon Flexible sigmoidoscopy [facility] Start: 02-12-2018 Zoster vaccine hzv l emmy for subcutaneous use ZOSTER (SHINGLES) VACCINE (1 of 2) [facility] Start: 02-12-2018 [facility] Work Phone: Start: 07-27-2015 Screening mammography MAMMOGRA M SCREENING DISCUSSION [facility] Start: 02-12-2013 Colonoscopy COLORECTAL CAN CER SCREENING DISCUSSION [facility] Start: 02-12-2013 Screening for malign ant neoplasm of colon [facility] Work Phone: Start: 2008 Screening for malign ant neoplasm of breast Mammogram [facility] Start: 02-12-1998 Screening for malign ant neoplasm of cervix [facility] Start: 02-12-1989 Screening for malign ant neoplasm of cervix [facility] Start: 02-12-1987 DTaP/Tdap/Td Vaccine s (1 - Tdap) DTaP/Tdap/Td Vaccines (1 - Tdap) [facility] Start: 02-12-1987 Third diphtheria, te tanus and acellular pertussis (DTaP) vaccination TDAP (ADULT) [facility] Start: 02-12-1987 [facility] Work Phone: Start: 02-12-1986 Hepatitis C screening Hepatitis C Sc reening [facility] Start: 02-12-1986 Tetanus vaccination TETANUS [facility] Start: 1984 COVID-19 VACCINE (1) COVID-19 VACCIN E (1) [facility] Start: 02-12-1983 HIV screening [facility] Start: 02-12-1981 HIV screening HIV SCREENING DISCUSSION [facility] Start: 1980 COVID-19 VACCINE (1) COVID-19 VACCIN E (1) [facility] Start: 1980 Depression Screening [facility] Start: 1980 [facility] Work Phone: Start: 02-12-1974 [facility] Work Phone: Start: 02-12-1973 COVID-19 VACCINE (1) COVID-19 VACCIN E (1) [facility] Start: 02-12-1971 History and physical examination, annual for health maintenance Wellness Visit [facility] Start: 02-12-1969 MMR Vaccines (1 of 1 - Standard series) MMR Vaccines (1 of 1 - Standard series) [facility] Start: 1968 COVID-19 Vaccine (#1) COVID-19 Vacci ne (#1) [facility] Start: 1968 Examination of skin Derm Melan ambrosio Skin Check [facility] Start: 1968 Hepatitis B Vaccines (1 of 3 - 3-dose series) Hepatitis B Vaccines (1 of 3 - 3-dose series) [facility] Start: 1968 Hepatitis C antibody , confirmatory test HEPATITIS C VIRUS SCREENING [facility] Start: 1968 Screening for malign ant neoplasm of colon [facility] Start: 1968 Tetanus vaccination Tetanus: Every 1 0yrs [facility] [employer] [facility] Work Phone: Alanine aminotransfe rase [Enzymatic activity/volume] in Serum or Plasma [facility] Albumin [Mass/volume ] in Serum or Plasma [facility] Alkaline phosphatase [Enzymatic activity/volume] in Serum or Plasma [facility] End: 11-11-2025 LIZ measurement LIZ Lab Routine Positive LIZ (antinuclear antibody) 1 Occurrences starting 11/11/2024 until 11/11/2025 [facility] Work Phone: Comment on above: 1 Occurrences starti ng 11/11/2024 until 11/11/2025 Anion gap measurement [facility] Anion gap measurement [facility] End: 11-11-2025 Antibody to single and double stranded DNA measurement Anti-DNA Double-Stranded Antibody Lab Routine Positive LIZ (antinuclear antibody) 1 Occurrences starting 11/11/2024 until 11/11/2025 [facility] Comment on above: 1 Occurrences starti ng 11/11/2024 until 11/11/2025 Aspartate aminotrans ferase [Enzymatic activity/volume] in Serum or Plasma [facility] Bacteria identified in Blood by Culture [facility] End: 06-15-2021 Basic metabolic 2000 panel - Serum or Plasma [facility] Work Phone: Basic metabolic 2000 panel - Serum or Plasma [facility] Work Phone: Bilirubin, total measurement [facility] BIPAP [facility] Work Phone: Blood Gas, Arterial [facility] Work Phone: BUN/Creatinine ratio [facility] BUN/Creatinine ratio [facility] End: 11-11-2025 C reactive protein [Mass/volume] in Serum or Plasma CRP, Inflammation Lab Routine Positive LIZ (antinuclear antibody) 1 Occurrences starting 11/11/2024 until 11/11/2025 [facility] Comment on above: 1 Occurrences starti ng 11/11/2024 until 11/11/2025 End: 11-11-2025 C4 complement assay C4 Complement Lab Routine Positive LIZ (antinuclear antibody) 1 Occurrences starting 11/11/2024 until 11/11/2025 [facility] Comment on above: 1 Occurrences starti ng 11/11/2024 until 11/11/2025 End: 11-11-2025 C>3< complement assay C3 Complement Lab Routine Positive LIZ (antinuclear antibody) 1 Occurrences starting 11/11/2024 until 11/11/2025 [facility] Comment on above: 1 Occurrences starti ng 11/11/2024 until 11/11/2025 Calcium [Mass/volume ] in Serum or Plasma [facility] Calcium [Mass/volume ] in Serum or Plasma [facility] Carbon dioxide, tota l [Moles/volume] in Serum or Plasma [facility] Carbon dioxide, tota l [Moles/volume] in Serum or Plasma [facility] CBC W Auto Different ial panel - Blood [facility] Work Phone: End: 06-15-2021 CBC W Auto Differential panel - Blood [facility] Work Phone: Chloride [Moles/volu me] in Serum or Plasma [facility] Chloride [Moles/volu me] in Serum or Plasma [facility] End: 11-11-2025 Chromatin Antibodies Chromatin Antibodies Lab Routine Positive LIZ (antinuclear antibody) 1 Occurrences starting 11/11/2024 until 11/11/2025 [facility] Comment on above: 1 Occurrences starti ng 11/11/2024 until 11/11/2025 End: 11-11-2025 Complete blood count with white cell differential, manual CBC and Differential Lab Routine Positive LIZ (antinuclear antibody) 1 Occurrences starting 11/11/2024 until 11/11/2025 [facility] Comment on above: 1 Occurrences starti ng 11/11/2024 until 11/11/2025 End: 11-11-2025 Creatinine [Mass/volume] in Serum or Plasma Creatinine, serum Lab Routine Positive LIZ (antinuclear antibody) 1 Occurrences starting 11/11/2024 until 11/11/2025 [facility] Comment on above: 1 Occurrences starti ng 11/11/2024 until 11/11/2025 Creatinine [Moles/vo lume] in Serum or Plasma [facility] Creatinine [Moles/vo lume] in Serum or Plasma [facility] End: 11-11-2025 Erythrocyte sedimentation rate Sedimentation Rate Lab Routine Positive LIZ (antinuclear antibody) 1 Occurrences starting 11/11/2024 until 11/11/2025 [facility] Comment on above: 1 Occurrences starti ng 11/11/2024 until 11/11/2025 End: 11-11-2025 Extractable nuclear antigen antibody screening test NAVYA Screen (Ro52,Ro60,SSB,SM,MANAGER INTRANET,S CL-70,JO1) Lab Routine Positive LIZ (antinuclear antibody) 1 Occurrences starting 11/11/2024 until 11/11/2025 [facility] Comment on above: 1 Occurrences starti ng 11/11/2024 until 11/11/2025 Glucose [Mass/volume ] in Serum or Plasma [facility] Work Phone: Glucose [Mass/volume ] in Serum or Plasma [facility] Glucose [Mass/volume ] in Serum or Plasma [facility] Hematocrit [Volume Fraction] of Blood [facility] Hematocrit [Volume Fraction] of Blood [facility] Hemoglobin [Mass/vol ume] in Blood [facility] Hemoglobin [Mass/vol ume] in Blood [facility] Hepatic function 200 0 panel - Serum or Plasma [facility] Work Phone: End: 11-11-2025 Hepatic function 2000 panel - Serum or Plasma Hepatic Function Panel Lab Routine Positive LIZ (antinuclear antibody) 1 Occurrences starting 11/11/2024 until 11/11/2025 [facility] Comment on above: 1 Occurrences starti ng 11/11/2024 until 11/11/2025 Leukocytes [#/volume ] in Blood [facility] Leukocytes [#/volume ] in Blood [facility] Magnesium [Mass/volu me] in Serum or Plasma [facility] Work Phone: Magnesium [Mass/volu me] in Serum or Plasma [facility] Mean corpuscular hemoglobin concentration determination [facility] Mean corpuscular hemoglobin concentration determination [facility] Mean corpuscular hemoglobin determination [facility] Mean corpuscular hemoglobin determination [facility] Measurement of renal function [facility] Measurement of renal function [facility] Neutrophil count [facility] Neutrophil count [facility] Neutrophil percent differential count [facility] Neutrophil percent differential count [facility] End: 06-26-2021 Osmolality of Serum or Plasma [facility] Work Phone: Osmolality of Serum or Plasma [facility] Work Phone: Osmolality, Urine [facility] Work Phone: Oxygen therapy [[facility] [place] [place] Data Set] [facility] Work Phone: Patient Education [facility] Work Phone: Patient referral [facility] Work Phone: End: 06-19-2021 PBP2A TEST FOR S. AUREUS [facility] Work Phone: PBP2A TEST FOR S. AUREUS [facility] Work Phone: Phosphate [Mass/volu me] in Serum or Plasma [facility] Work Phone: Platelets [#/volume] in Blood [facility] Platelets [#/volume] in Blood [facility] Potassium [Moles/vol ume] in Serum or Plasma [facility] Potassium [Moles/vol ume] in Serum or Plasma [facility] End: 11-11-2025 Protein/Creatinine [Ratio] in Urine Protein / Creatinine Ratio, Urine Lab Routine Positive LIZ (antinuclear antibody) 1 Occurrences starting 11/11/2024 until 11/11/2025 [facility] Comment on above: 1 Occurrences starti ng 11/11/2024 until 11/11/2025 Pulse oximetry, overnight [employer] Work Phone: Red blood cell count [facility] Red blood cell count [facility] Red cell distributio n width determination [facility] Red cell distributio n width determination [facility] RT Communication Order [facility] Work Phone: Sodium [Moles/volume ] in Serum or Plasma [facility] Work Phone: Sodium [Moles/volume ] in Serum or Plasma [facility] Sodium [Moles/volume ] in Serum or Plasma [facility] Sodium, Urine, Random [facility] Work Phone: End: 06-02-2021 Standard ECG ECG ECG STAT One Time for 1 Occurrences starting 06/02/2021 until 06/02/2021 [facility] Exposed Voc[facility] Comment on above: One Time for 1 Occur rences starting 06/02/2021 until 06/02/2021 Total protein measurement [facility] Troponin I.cardiac [Mass/volume] in Serum or Plasma [facility] Work Phone: End: 06-26-2021 Urate [Mass/volume] in Serum or Plasma [facility] Work Phone: End: 11-11-2025 Urate [Mass/volume] in Serum or Plasma Uric Acid Lab Routine Positive LIZ (antinuclear antibody) Recurrent cellulitis 1 Occurrences starting 11/11/2024 until 11/11/2025 [facility] Comment on above: 1 Occurrences starti ng 11/11/2024 until 11/11/2025 Urea nitrogen [Mass/volume] in Serum or Plasma [facility] Urea nitrogen [Mass/volume] in Serum or Plasma [facility] End: 06-26-2021 Urinalysis [facility] Work Phone: End: 11-11-2025 Urinalysis Urinalysis Lab Routine Positive LIZ (antinuclear antibody) 1 Occurrences starting 11/11/2024 until 11/11/2025 [facility] Comment on above: 1 Occurrences starti ng 11/11/2024 until 11/11/2025 [facility] Immunizations Immunization Date Immunization Notes Care Provider Devan avilez 12-11-2022 zoster vaccine recombinant [facility] Work Phone: [facility] Payers Date Payer Category Payer Blue [employer] Blue Shield ANTHEM BL UE/PREF/HMO/PPO [id number] 2023 Self-pay [id number] 2023 Unknown [id number] 2022 Blue Cross Blue Shie ld (Indemnity or Managed Care) - Out of State BCBS OUT OF STATE [facility] .[id number] 2021 Blue Cross Blue Shield [id number] 2017 Unknown ANTHEM ANTHEM HM O PPO POS [id number] 2017-Present [id number] 2017 Unknown ANTHEM ANTHEM HM O PPO POS [id number] 2017-Present [id number]. [id number] 2017 Unknown [id number] 1.13.172. 2.7.3.303113.315 1968 Unknown [id number] 2.16.840.1.842828.3.579. 2.651 1968 Unknown [id number] 2.840.1.218917.3.579. 2.356 1968 Unknown [id number] 2.840.1.953572.3.579. 2.356 1968 Unknown [id number] 2.840.1.223254.3.579. 2.903 1968 Unknown [id number] 2.840.1.030781.3.579. 2.903 Unknown [id number] Unknown [id number] Unknown [id number] Unknown [id number] 2.16.840.1.420868.3.579. 2.462 Unknown [id number] 2.840.1.408018.3.579. 2.462 Unknown [id number] 2.16.840.1.967610.3.579. 2.462 Unknown [id number] 2.16.840.1.724844.3.579. 2.462 Unknown [id number] 2.16.840.1.785649.3.579. 2.462 Unknown [id number] 2.16.840.1.486618.3.579. 2.462 Unknown [id number] 2.16.840.1.367469.3.579. 2.462 Unknown [id number] 2.16.840.1.210435.3.579. 2.462 Unknown [id number] 2.16.840.1.595500.3.579. 2.462 Unknown [id number] 2.16.840.1.869592.3.579. 2.462 Unknown [id number] 2.16.840.1.779951.3.579. 2.462 Unknown [id number] 2.16.840.1.295271.3.579. 2.462 Unknown [id number] 2.16.840.1.492150.3.579. 2.462 Unknown [id number] 2.16.840.1.710413.3.579. 2.462 Unknown [id number] 2.16.840.1.669746.3.579. 2.462 Unknown [id number] 2.16.840.1.016022.3.579. 2.462 Unknown [id number] 2.16.840.1.177845.3.579. 2.462 Unknown [id number] 2.16.840.1.869850.3.579. 2.462 Unknown [id number] 2.16.840.1.942305.3.579. 2.462 Unknown [id number] 2.16.840.1.252181.3.579. 2.462 Unknown [id number] 2.16.840.1.280323.3.579. 2.462 Social History Date Type Detail Facility Start: 03-02-2018 End: 04-04-2024 Tobacco smoking status AKIS Unknown if ever smoked [facility] Start: 1970 Sex Assigned At Not on file O [facility] Start: 08-24-2017 End: 06-01-2020 Tobacco smoking status NHIS Never smoker [facility] Start: 06-01-2020 End: 09-04-2023 [facility] -[facility] ([facility]) [facility] Start: 08-24-2017 End: 05-25-2018 Tobacco use and exposure Never used [employer] Start: 05-25-2018 Alcohol intake Current drinke r of alcohol (finding) [employer] Start: 08-18-2017 Alcohol Comment rarely [facility] [facility] Exposure to SARS-CoV -2 (event) Yes [employer] Start: 1970 [facility] At [facility] Start: 09-04-2023 Non-smoker Non-smoker -Surgery -[facility] DO Work Phone: Start: 09-04-2023 Tobacco use panel [facility] NEGATED: Highlighted row No Social History Information Available No Social History Information Available [employer] Work Phone: Goals Date Patient Goal Desired [...] and elevating legs to better manage edema. 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 Reduce LE edema as demontrated by decrease in LE girth by 2 cm to facilitate being able to wear shoes of choice and feel more comfortable in her pants. Functional Status Date Assessment Result Facility 04-08-2024 Functional status Ambulates;[facility] Work Phone: 08-21-2023 Functional status Ambulates;[facility] Work Phone: 07-31-2023 Functional status Ambulates [facility] Work Phone: Mental Status Date Assessment Result Facility 04-08-2024 Cognitive function Voice/Name [facility] Work Phone: 08-21-2023 Cognitive function Voice/Name [facility] Work Phone: 07-31-2023 Cognitive function Voice/Name [facility] Work Phone: 07-08-2023 Cognitive function Level Of Cons ciousness Awake;Alert;Appropriate;Follow s Commands [facility] Work Phone: Clinical Notes 06-02-2021 to 11-11-2024 Yamile Smallwood DO - 11/11/2024 8:27 AM BernaMarry arandaBECCA - 11/11/2024 8:26 AM EST Note Date & Type Note Facility 11-11-2024 Note [facility]UMATOLOGY [facility] IENT VISIT Patient Name: Jesusita England : 1970 Medical Record: [id number] PCP: Alondra Crews PA-C Referring provider: Provider, [...] any questions or concerns. Yamile Smallwood DO [facility] Rheumatology [address] [place] [address] O: [phone] F: [phone] The above recommendations were discussed with the patient who understands and agrees with the plan. Portions of this note were created with [employer] D[employer]. Every effort was made to proofread, but sound-alike errors may occasionally occur. Please contact me for any clarification of note contents. I spent 60 minutes on this patient encounter on the date of visit which included record review, vrag-gg-laau time with patient, placing orders, documentation in the electronic medical record. HPI/ROS Jesusita England is a 54 y.o. female with who was referred by Provider, [facility] for evaluation of positive [...] HENT: Head normocephali (more content not included)... [facility] 11-11[facility] History of Present illness Narrative Images from the original note were not included. RHEUMATOLOGY NEW PATIENT VISIT Patient Name: Jesusita Egnland : 1970 Medical Record: [id number] PCP: Alondra Crews PA-C Referring provider: Provider, [...] any questions or concerns. Yamile Smallwood DO [facility] Rheumatology [address] [place] [address] O: [phone] F: [phone] The above recommendations were discussed with the patient who understands and agrees with the plan. Portions of this note were created with [employer]. Every effort was made to proofread, but sound-alike errors may occasionally occur. Please contact me for any clarification of note contents. I spent 60 minutes on this patient encounter on the date of visit which included record review, ixce-tm-abht time with patient, placing orders, documentation in the electronic medical record. HPI/ROS Jesusita England is a 54 y.o. female with who was referred by Provider, [facility] for evaluation of positive [...] [x]Yes []Patient declined documented in this encounter [facility] 05-09-2024 Note [facility] 04-08-2024 Note [facility] 04-08-2024 Discharge summary Note Date/Time April 08, 2024 11:21 am [facility] Medical Records Department [address] [place] [address] Instructions for Home/Discharge Instructions 04/08/24 1119 MR#: [id number] Acct: [id number] Name: JESUSITA ENGLAND Rep #:[id number] : 1970 54 From: Rubin frost [...] Wander Garcia MD; VJ Maloney ~ Signed [facility] Work Phone: 1(257) 154-901505-09-2024 Progress note Author Rubin Hadley [facility] April 07, 2024 10:15am Note Date/Time April 07, 2024 10:09a m [facility] Medical Records Department [address] [place] [address] Progress Note - Hospitalist 04/07/24 1006 MR#: [id number] Acct: [id number] Name: JESUSITA ENGLAND Rep #:[id number] 4 : 1970 54 From: Rubin frost MD PCP: VJ Maloney Status:ADM IN Location: CO3 GH138-9 Subjective Subjective White count has completely resolved [...] 75.6 H, Lymph % (Auto) 12.2 L, [place] % (Auto) 10.8 H, Eos % (Auto) [...] 71.7 H, Lymph % (Auto) 15.1 L, [place] % (Auto) 11.4 H, Eos % (Auto) [...] DVT: Lovenox Charges/Coding Visit Charges Inpatient E&M: 36009 Subs Hosp L2 04/07/24 1015 <Electronically signed by Rubin Hadley MD> Cosigner Signature (if applicable): CC: ~ Signed [facility] Work Phone: 1([phone]) 125-160905-08-2024 Consult note Author Wander Garcia [facility] April 06, 2024 3:33pm Note Date/Time April 06, 2024 3:33pm [facility] Medical Records Department [address] [place] [address] Consultation - Infectious Dx 04/06/24 1530 MR#: [id number] Acct: [id number] Name: JESUSITA ENGLAND Rep #:[id number] : 1970 54 From: Wander bledsoe MD PCP: VJ Maloney Status:ADM IN Location: MS3 YN040-7 Assessment & Plan Assessment/Plan (1) Cellulitis: QUALIFIERS: [...] performed and neg except as noted above. 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 For lunch she [...] % (Auto) Cancelled, Lymph % (Auto) Cancelled, [place] % (Auto) Cancelled, Eos % (Auto) Cancelled, [...] Drop Cells Cancelled, Ovalocytes Cancelled, Stomatocytes Cancelled, Galindo-Zena Bodies Cancelled, Wallace Cells Cancelled, Bite Cells Cancelled, Crenated Cell [...] 75.6 H, Lymph % (Auto) 12.2 L, [place] % (Auto) 10.8 H, Eos % (Auto) [...] Signature (if applicable): CC: VJ Maloney~ Signed [facility] Work Phone: 1(726) 730-384705-08-2024 Progress note Author Rubin Hadley [facility] April 06, 2024 2:46pm Note Date/Time April 06, 2024 2:46pm [facility] System Medical Records Department [address] [place] [address] Progress Note - Hospitalist 04/06/24 1444 MR#: [id number] Acct: [id number] Name: JESUSITA ENGLAND Rep #:[id number] : 1970 54 From: Rubin frost MD PCP: VJ Maloney Status:ADM IN Location: CO3 NP288-4 Subjective Subjective doing well, no issues overnight. [...] % (Auto) Cancelled, Lymph % (Auto) Cancelled, [place] % (Auto) Cancelled, Eos % (Auto) Cancelled, [...] Drop Cells Cancelled, Ovalocytes Cancelled, Stomatocytes Cancelled, Galindo-Zena Bodies Cancelled, Wallace Cells Cancelled, Bite Cells Cancelled, Crenated Cell [...] 75.6 H, Lymph % (Auto) 12.2 L, [place] % (Auto) 10.8 H, Eos % (Auto) [...] DVT: Lovenox Charges/Coding Visit Charges Inpatient E&M: 05928 Subs Hosp L2 04/06/24 1446 <Electronically signed by Rubin Hadley MD> Cosigner Signature (if applicable): CC: ~ Signed [facility] Work Phone: 1(763) 351-699205-07-2024 Consult note Author Cole Kelly [facility] April 05, 2024 9:48pm Note Date/Time April 05, 2024 9:48pm [facility] Medical Records Department [address] [place] [address] Pharmacokinetic/Renal -Consult 04/05/242146 MR#: [id number] Acct: [id number] Name: JESUSITA ENGLAND Rep #:[id number] 0 : 1970 54 From: Cole Melton od PCP: VJ Maloney Status:ADM IN Y Location: [place] 607306-1 Consult Antibiotic Management Pharmacy has been consulted [...] [date and time ordered]: 04/07 @ 2100 04/05/245 <Electronically signed by Cole seth> Date _ Cole Pino Signature (if applicable): Date CC: ~ Signed [facility] Work Phone: 1(116) 172-491205-07-2024 Progress note Author Rubin Hadley [facility] April 05, 2024 10:53am Note Date/Time April 05, 2024 10:53a ashli [facility] Medical Records Department [address] [place] [address] Progress Note - Hospitalist 04/05/24 1048 MR#: [id number] Acct: [id number] Name: JESUSITA ENGLAND Rep #:[id number] 0 : 1970 54 From: Rubin frost MD PCP: VJ Maloney Status:ADM IN Location: MS3 IN342-3 Subjective Subjective Doing well, no issues overnight. [...] (Auto) 91.5 H, Lymph % (Auto) 2.6L, [place] % (Auto) 5.0, Eos % (Auto) 0.0, [...] DVT: Lovenox Charges/Coding Visit Charges Inpatient E&M: 02994 Subs Hosp L2 04/05/24 1053 <Electronically signed by Rubin Hadley MD> Cosigner Signature (if applicable): CC: ~ Signed [facility] Work Phone: 1(881) 875-951305-07-2024 History and physical note Author Calderon Swanson [facility] April 05, 2024 5:52am Note Date/Time April 04, 2024 10:03p m [facility] Medical Records Department [address] [place] [address] H&P Exam - Hospitalist 04/04/241 MR#: [id number] Acct: [id number] Name: JESUSITA ENGLAND Rep #:[id number] 5 : 1970 54 From: Calderon Chowdhury o PCP: VJ Maloney Status:ADM IN [place] [facility] [place]474-[place] HPI - General General Date of Admission: [...] consult with Dr. Garcia who presents to [facility] ER complaining of bilateral lower extremity redness [...] isexpected to be greater than 2 midnights. [facility] Medical History Abnormal echocardiogram Anxiety Ascending aorta [...] a small breakfast on the way to work....[employer] or a breakfast bar. For lunch she [...] (Auto) 91.5 H, Lymph % (Auto) 2.6L, [place] % (Auto) 5.0, Eos % (Auto) 0.0, [...] 55 minutes. Charges/Coding Visit Charges Inpatient E&M: 65469 Init Hosp L2 04/05/24 0552 <Electronically signed by Calderon Ojeda DO> Cosigner Signature (if applicable): CC: Dr. Calderon Ojeda DO; VJ Maloney~ Signed [facility] Work Phone: 1(385) 201-473305-07-2024 Consult note Author Cole Kelly [facility] April 04, 2024 11:58pm Note Date/Time April 04, 2024 11:58p [facility] Medical Records Department [address] [place] [address] Pharmacokinetic/Renal -Consult 04/04/24 2357 MR#: [id number] Acct: [id number] Name: JESUSITA ENGLAND Rep #:[id number] : 1970 54 From: Cole Melton od PCP: VJ Maloney Status:ADM IN Location: [place] [address] Consult Antibiotic Management Pharmacy has been consulted [...] and time ordered]: 04/05 @ 2100 04/04/24 0297 <Electronically signed by Cole seth> Date _ Cole Pino Signature (if applicable): Date CC: ~ Signed [facility] Work Phone: 1([phone]) 247-427905-07-2024 Discharge summary Author Gian Menjivarrus [facility] April 04, 2024 10:06pm Note Date/Time April 04, 2024 8:20pm [facility] Medical Records Department [address] [place] [address] Emergency Department Summary 04/04/24 MR#: [id number] Acct: [id number] Name: JESUSITA ENGLAND Rep #:[id number] : 1970 54 From: Gian Davis PCP: VJ Maloney Status:REG ER Location: ED HPI History of Present Illness Chief Complaint: Cellulitis PFSH [facility] Medical History Abnormal echocardiogram Anxiety Ascending aorta [...] occupational status: employed 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 For lunch she [...] medical floor This note was generated with [employer] dictation software. It may contain incorrect words, [...] your Primary Care Provider. Call [facility] ([phone]) or report to the closest Emergency Room. Call 911 if necessary. 04/04/242205 <Electronically signed by Gian Villanueva DO> Cosigner Signature (if applicable): CC: VJ Maloney ~ Signed [facility] Work Phone: 1(405) 766-418805-06-2024 Discharge summary Author Gian Villanueva [facility] April 04, 2024 10:06pm Note Date/Time April 04, 2024 8:20pm [facility] Medical Records Department [address] [place] [address] Emergency Department Summary 04/04/24 MR#: [id number] Acct: [id number] Name: JESUSITA ENGLAND Rep #:[id number] : 1970 54 From: Gian Davis PCP: VJ Maloney Status:REG ER Location: ED HPI History of Present Illness Chief Complaint: Cellulitis [facility] Medical History Abnormal echocardiogram Anxiety [...] occupational status: employed 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 For lunch she [...] 95 Oxygen Delivery Method Room Air MDM [facility] MDM Narrative Medical decision making narrative: HISTORY [...] medical floor This note was generated with [employer] dictation software. It may contain incorrect words, [...] your Primary Care Provider. Call [facility] ([phone]) or report to the closest Emergency Room. Call 911 if necessary. 04/04/242205 <Electronically signed by Gian Villanueva DO> Cosigner Signature (if applicable): CC: VJ Maloney ~ Signed [facility] Work Phone: 1([phone]) 209-348610-06-2023 History of Present illness Narrative* Helder Tavera [...] already. Additional Complaints: Chronic lymphedema- known to [facility] clinic locally, but has not been [...] or fail to improve. documented in this [facility]09-22-2023 Consult note Author Brandt Pierce [facility] August 21, 2023 10:48am Note Date/Time August 21, 2023 10:48am [facility] Medical Records Department [address] [place] [address] Counseling Note - Pharmacy 08/21/23 1047 MR#: [id number] Acct: [id number] Name: JESUSITA ENGLAND Rep #:[id number] : 1970 53 From: Brandt Pierce PCP: VJ Maloney Status:ADM IN Y [place] [facility] VT374-0 Pharmacy [facility] Service has performed discharge medication reconciliation [...] caps 08/21/23 08/21/23 1048 <Electronically signed by Brnadt bledsoe> Date _ Brandt Pierce Cosigner Signature (if applicable): Date CC: ~ Signed [facility] Work Phone: 1(251) 121-178109-22-2023 Discharge [facility], [facility] 8:32am Note Date/Time August 21, 2023 8:29am [facility] System Medical Records Department [address] [place] [address] Discharge Summary 08/21/23 0827 MR#: [id number] Acct: [id number] Name: JESUSITA ENGLAND Rep #:[id number] : 1970 53 From: Calderon Ware MD PCP: VJ Maloney Status:ADM IN [facility] Providers Date of Admission: 08/18/23 Date of [...] % (Auto) 69.7, Lymph % (Auto) 18.6L, [place] % (Auto) 9.9, Eos % (Auto) 0.2, [...] Self Care Charges/Coding Visit Charges Inpatient E&M: 25789 Disch Hosp >30min 08/21/23 0832 <Electronically signed by Calderon Ware MD> Cosigner Signature (if applicable): CC: Dr. Calderon Ware MD; VJ Maloney~ Signed [facility] Work Phone: 1(232) 322-426209-22-2023 [facility]09-21-2023 Progress note Author Wander Garcia [facility] August 20, 2023 10:50am Note Date/Time August 20, 2023 10:51am [facility] Medical Records Department [address] [facility] [place] [address] Progress Note - Infect Disease 08/20/23 1050 MR#: [id number] Acct: [id number] Name: JESUSITA ENGLAND RAMONA Rep #:[id number] : 1970 53 From: Wander bledsoe MD PCP: VJ Maloney Status:ADM IN [place] [facility] LH750-9 Physical Exam Narrative Feeling a little better, [...] days omnicef at discharge 300mg bid then jail suppressive amox. will follow (2) Sepsis: 08/20/23 1050 <Electronically signed by Wander Garcia MD> Cosigner Signature (if applicable): CC: ~ Signed [facility] Work Phone: 1(693) 435-927909-21-2023 Progress note Author Calderon Ware [facility] August 20, 2023 10:02am Note Date/Time August 20, 2023 7:30am [facility] Medical Records Department [address] [place] [address] Progress Note - Hospitalist 08/20/23 0730 MR#: [id number] Acct: [id number] Name: JESUSITA ENGLAND Rep #:[id number] : 1970 53 From: Calderon Ware MD PCP: VJ Maloney Status:ADM IN [place] [facility] FY818-5 Reason for Visit Reason for Visit: Diagnoses [...] (Auto) 76.4 H, Lymph % (Auto) 14.3L, [place] % (Auto) 8.5, Eos % (Auto) 0.0, [...] documentation, 35minutes Charges/Coding Visit Charges Inpatient E&M: 32727 Subs Hosp L2 08/20/23 1002 <Electronically signed by Calderon Ware MD> Cosigner Signature (if applicable): CC: ~ Signed [facility] Work Phone: 1(183) 300-401409-20-2023 Consult note Author Wander Garcia [facility] August 19, 2023 2:08pm Note Date/Time August 19, 2023 2:06pm [facility] Medical Records Department [address] [place] [address] Consultation - Infectious Dx 08/19/23 1404 MR#: [id number] Acct: [id number] Name: JESUSITA ENGLAND Rep #:[id number] 1 : 1970 53 From: Wander bledsoe MD PCP: VJ Maloney Status:ADM IN Location: [place] [address]-1 Assessment & Plan Assessment/Plan (1) Cellulitis: QUALIFIERS: [...] performed and neg except as noted above. 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 For lunch she [...] 79.4 H, Lymph % (Auto) 10.2 L, [place] % (Auto) 9.2, Eos % (Auto) 0.1, [...] Dr. Wander Garcia MD; VJ Maloney~ Signed [facility] Work Phone: 1(233) 161-737309-20-2023 Progress note Author Calderon Ware [facility] August 19, 2023 10:41am Note Date/Time August 19, 2023 7:51am [facility] Medical Records Department [address] [place] [address] Progress Note - Hospitalist 08/19/23 0750 MR#: [id number] Acct: [id number] Name: JESUSITA ENGLAND Rep #:[id number] : 1970 53 From: Calderon Ware MD PCP: VJ Maloney Status:ADM IN Location: [place] [address] Reason for Visit Reason for Visit: Diagnoses [...] 79.4 H, Lymph % (Auto) 10.2 L, [place] % (Auto) 9.2, Eos % (Auto) 0.1, [...] documentation, 35minutes Charges/Coding Visit Charges Inpatient E&M: 82709 Subs Hosp L2 08/19/23 1041 <Electronically signed by Calderon Ware MD> Cosigner Signature (if applicable): CC: ~ Signed [facility] Work Phone: 1(618) 824-404609-19-2023 Progress note Author Calderon Rowematt [facility] August 18, 2023 10:45am Note Date/Time August 18, 2023 7:42am [facility] Medical Records Department [address] [place] [address] Progress Note - Hospitalist 08/18/23 0738 MR#: [id number] Acct: [id number] Name: JESUSITA ENGLAND Rep #:[id number] 4 : 1970 53 From: Calderon Ware MD PCP: VJ Maloney Status:[facility] Reason for Visit Reason for Visit: [...] (Auto) 90.9 H, Lymph % (Auto) 3.2L, [place] % (Auto) 5.0, Eos % (Auto) 0.0, [...] 90.8 H, Lymph % (Auto) 4.5 L, [place] % (Auto) 3.6, Eos % (Auto) 0.0, [...] 50 Minutes Charges/Coding Visit Charges Inpatient E&M: 74879 Subs Hosp L3 08/18/23 1045 <Electronically signed by Calderon Ware MD> Cosigner Signature (if applicable): CC: ~ Signed [facility] Work Phone: 1(397) 875-961709-19-2023 Discharge summary Author Mandy Arce [facility] August 18, 2023 3:05am Note Date/Time August 17, 2023 10:43pm [facility] Medical Records Department [address] [place] [address] Emergency Department Summary 08/17/23 MR#: [id number] Acct: [id number] Name: JESUSITA ENGLAND Rep #:[id number] : 1970 53 From: Mandy Arce MD PCP: VJ Maloney Status:ADM IN Location: [address] History of Present Illness Chief Complaint: [...] a fever tonight up to 101.9. 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 For lunch she [...] 90.9 H Lymph % (Auto) 3.2 L [place] % (Auto) 5.0 Eos % (Auto) 0.0 [...] Provider] - Disposition Disposition: Acute Care Hospital [facility] What to do if you have Problems For any increased pain, shortness of breath, bleeding, nausea or vomiting, chestpain, or any unexpected problems, contact your Primary Care Provider. Call [facility] ([phone]) or report to the closest Emergency Room. Call 911 if necessary. 08/18/23 2198 <Electronically signed by Mandy Arce MD> Cosigner Signature (if applicable): CC: VJ Maloney ~ Signed [facility] Work Phone: 1([phone]) 112-770909-19-2023 History and physical note Author Arthur Thompson [facility] August 18, 2023 12:50am Note Date/Time August 18, 2023 12:46am [facility] Medical Records Department [address] [place] [address] History & Physical Exam 08/18/23 0045 MR#: [id number] Acct: [id number] Name: JESUSITA ENGLAND Rep #:[id number] : 1970 53 From: Arthur Thompson [...] July [facility] and patient. She has [...] admitted for further IV antibiotics and fluid. [facility] Medical History Abnormal echocardiogram Anxiety Ascending aorta [...] (Auto) 90.9 H, Lymph % (Auto) 3.2L, [place] % (Auto) 5.0, Eos % (Auto) 0.0, [...] weight heparin Charges/Coding Visit Charges Inpatient E&M: 61147 Init Hosp L2 08/18/23 0050 <Electronically signed by Arthur Thompson MD> Cosigner Signature (if applicable): CC: Dr. Arthur Thompson MD; VJ Maloney~ Signed [facility] Work Phone: 1(464) 727-184609-19-2023 [facility]09-01-2023 Discharge summary Author Betty Calvin [facility] July 31, 2023 9:46am Note Date/Time July 31, 2023 7:28am [facility] Medical Records Department [address] [place] [address] Discharge Summary 07/31/23 0722 MR#: [id number] Acct: [id number] Name: JESUSITA ENGLAND Rep #:[id number] : 1970 53 From: Betty Calvin MD PCP: VJ Maloney Status:ADM IN [facility] Providers Date of Admission: 07/25/23 Date of Discharge: 07/31/23 Primary Care Physician: VJ Maloney Consultations 07/25/23 02:40 Consult: Onc/Wound/afterschool Routine Comment: 07/27/23 11:53 Consult: Infectious Disease [...] obesity, recurrent lower extremity cellulitis presented to [facility] 07/25/2023 with bilateral lower extremity cellulitis but [...] Neut % (Auto) 66.9, Lymph % (Auto)21.3, [place] % (Auto) 9.3, Eos % (Auto) 0.2, [...] to your preferred pharmacy on file the [facility] in [place] per our discussion -Please follow-up with Dr. [...] Self Care Charges/Coding Visit Charges Inpatient E&M: 40852 Disch Hosp >30min 07/31/23 0946 <Electronically signed by Betty Calvin MD> Cosigner Signature (if applicable): CC: Dr. Betty Calvin MD; VJ Maloney~ Signed [facility] Work Phone: 1(545) 927-743509-01-2023 Discharge summary Author Betty Calvin [facility] July 31, 2023 9:46am Note Date/Time July 31, 2023 7:19am [facility] Medical Records Department [address] [place] [address] Instructions for Home/Discharge Instructions 07/31/23 0716 MR#: [id number] Acct: [id number] Name: JESUSITA ENGLAND Rep #:[id number] : 1970 53 From: Betty Calvin [...] to your preferred pharmacy on file the [facility] in [place] per our discussion -Please follow-up with Dr. [...] Wander Garcia MD; VJ Maloney ~ Signed [facility] Work Phone: 1(846) 146-499609-01-2023 [facility]08-31-2023 Progress note Author Betty Calvin [facility] July 30, 2023 10:51am Note Date/Time July 30, 2023 8: 21am [facility] Medical Records Department [address] [place] [address] Progress Note - Hospitalist 07/30/2318 MR#: [id number] Acct: [id number] Name: JESUSITA ENGLAND Rep #:[id number] : 1970 53 From: Betty Calvin MD PCP: VJ Maloney Status:ADM IN [place] [facility] [place] Reason for Visit Reason for Visit: Diagnoses [...] % (Auto) 66.0, Lymph % (Auto) 20.6, [place] % (Auto) 11.2 H, Eos % (Auto) [...] extremities -Had echocardiogram done on 06/19/2021 at [facility] that showed normal EF and no significant [...] documentation, 36minutes Charges/Coding Visit Charges Inpatient E&M: 28271 Subs Hosp L2 07/30/23 1051 <Electronically signed by Betty Calvin MD> Cosigner Signature (if applicable): CC: ~ Signed [facility] Work Phone: 1(240) 616-932008-31-2023 Progress note Author Wander Garcia [facility] July 30, 2023 10:17am Note Date/Time July 30, 2023 10 :17am [facility] Medical Records Department [address] [place] [address] Progress Note - Infect Disease 07/30/23 1016 MR#: [id number] Acct: [id number] Name: JESUSITA ENGLAND Rep #:[id number] : 1970 53 From: Wander bledsoe MD PCP: VJ Maloney Status:ADM IN Location: [address] Physical Exam Narrative Leg still sore, [...] for nonpurulent cellulitis, will need to consider jail amox as prophylaxis and referral to edema clinic for prevention. Added antifungal powder to skin folds. Both legs slowly improving, less red. Ok for home with 10 days omnicef 300mg bid, ID followup in 2 weeks. Will follow 07/30/23 1017 <Electronically signed by Wander Garcia MD> Cosigner Signature (if applicable): CC: ~ Signed [facility] Work Phone: 1(473) 709-185108-30-2023 Progress note Author Wander Garcia [facility] July 29, 2023 4:06pm Note Date/Time July 29, 2023 4: 06pm [facility] System Medical Records Department [address] [place] [address] Progress Note - Infect Disease 07/29/23 1605 MR#: [id number] Acct: [id number] Name: JESUSITA ENGLAND Rep #:[id number] : 1970 53 From: Wander bledsoe MD PCP: VJ Maloney Status:ADM IN [facility] Exam Narrative Some pain in legs, [...] for nonpurulent cellulitis, will need to consider jail amox as prophylaxis and referral to edema clinic for prevention. Added antifungal powder to skin folds. Both legs slowly improving, less red. Will follow 07/29/23 1606 <Electronically signed by Wander Garcia MD> Cosigner Signature (if applicable): CC: ~ Signed [facility] Work Phone: 1([phone]) 828-897608-30-2023 Progress note Author Betty Calvin [facility] July 29, 2023 9:14am Note Date/Time July 29, 2023 8: 10am [facility] System Medical Records Department [address] [place] [address] Progress Note - Hospitalist 07/29/23807 MR#: [id number] Acct: [id number] Name: JESUSITA ENGLAND Rep #:[id number] : 1970 53 From: Betty Calvin MD PCP: VJ Maloney Status:ADM IN [place] [facility]22-[place] Reason for Visit Reason for Visit: Diagnoses [...] (Auto) 69.9, Lymph % (Auto) 17.9 L, [place] % (Auto) 10.9 H, Eos % (Auto) [...] extremities -Had echocardiogram done on 06/19/2021 at [facility] that showed normal EF and no significant [...] documentation, 36minutes Charges/Coding Visit Charges Inpatient E&M: 76674 Subs Hosp L2 07/29/23 0914 <Electronically signed by Betty Calvin MD> Cosigner Signature (if applicable): CC: ~ Signed [facility] Work Phone: [phone]) 811-122708-29-2023 Progress note Author Betty Calvin [facility] July 28, 2023 1:16pm Note Date/Time July 28, 2023 1: 16pm [facility] Medical Records Department [address] [place] [address] Progress Note - Hospitalist 07/28/23 1313 MR#: [id number] Acct: [id number] Name: JESUSITA ENGLAND Rep #:[id number] : 1970 53 From: Betty Calvin MD PCP: VJ Maloney Status:ADM IN Location: [place] [address]-1 Reason for Visit Reason for Visit: Diagnoses [...] 71.0 H, Lymph % (Auto) 16.6 L, [place] % (Auto) 11.3 H, Eos % (Auto) [...] extremities -Had echocardiogram done on 06/19/2021 at [facility] that showed normal EF and no significant [...] documentation, 36minutes Charges/Coding Visit Charges Inpatient E&M: 21518 Subs Hosp L2 07/28/23 1316 <Electronically signed by Betty Calvin MD> Cosigner Signature (if applicable): CC: ~ Signed ADDENDUM by Dr. Betty Calvin MD on 07/28/23 at 1316 Visit Charges Inpatient E&M: 37059 Subs Hosp L2 07/28/23 1316<Electronically signed by Betty Calvin MD> Cosigner Signature (if applicable): cc: ~* Signed [facility] Work Phone: 1(123) 981-457308-29-2023 Progress note Author Wander Garcia [facility] July 28, 2023 10:30am Note Date/Time July 28, 2023 10 :30am [facility] Medical Records Department [address] [place] [address] Progress Note - Infect Disease 07/28/23 1028 MR#: [id number] Acct: [id number] Name: JESUSITA ENGLAND Rep #:[id number] : 1970 53 From: Wander bledsoe MD PCP: VJ Maloney Status:ADM IN Location: [place] GR562-2 Physical Exam Narrative Feeling about the same, [...] for nonpurulent cellulitis, will need to consider jail amox as prophylaxis and referral to edema clinic for prevention. Will add antifungal powder to skin folds Will follow 07/28/23 1030 <Electronically signed by Wander Garcia MD> Cosigner Signature (if applicable): CC: ~ Signed [facility] Work Phone: 1(685) 406-663808-28-2023 Consult note Author Wander Limonninger [facility] July 27, 2023 2:03pm Note Date/Time July 27, 2023 2: 03pm [facility] Medical Records Department [address] [place] [address] Consultation - Infectious Dx 07/27/23 1358 MR#: [id number] Acct: [id number] Name: JESUSITA ENGLAND Rep #:[id number] : 1970 53 From: Wander bledsoe MD PCP: VJ Maloney Status:ADM IN Location: [place] [address] Assessment & Plan Assessment/Plan (1) Lymphedema associated with obesity: (2) Cellulitis: PLAN: recurrent RLE cellulitis, now developed LLE cellulitis on outpt doxy/keflex. Improving here on vanc/zosyn. Will narrow to ceftriaxone for nonpurulent cellulitis, will need to consider jail amox as prophylaxis and referral to edema [...] performed and neg except as noted above. [facility] Medical History Abnormal echocardiogram Anxiety Ascending aorta [...] a small breakfast on the way to work....[employer] or a breakfast bar. For lunch she [...] 73.7 H, Lymph % (Auto) 14.6 L, [place] % (Auto) 10.7 H, Eos % (Auto) [...] 10:13 EDT Reading Location ID and State: [address] [place] [address] , Service support , 07/27/23 1403 <Electronically signed by Wander Garcia MD> Cosigner Signature (if applicable): CC: Dr. Adrianna Mejia DO; Dr. Wander Garcia MD; VJ Maloney~ Signed [facility] Work Phone: [phone]) 726-641708-28-2023 Progress note Author Betty Calvin [facility] July 27, 2023 11:56am Note Date/Time July 27, 2023 9: 38am [facility] Medical Records Department [address] [place] [address] Progress Note - Hospitalist 07/27/23 0936 MR#: [id number] Acct: [id number] Name: JESUSITA ENGLAND Rep #:[id number] : 1970 53 From: Betty Calvin MD PCP: VJ Maloney Status:ADM IN Location: [place]3 ZU458-2 Reason for Visit Reason for Visit: Diagnoses [...] 73.7 H, Lymph % (Auto) 14.6 L, [place] % (Auto) 10.7 H, Eos % (Auto) [...] extremities -Had echocardiogram done on 06/19/2021 at [facility] that showed normal EF and no significant [...] on admission Charges/Coding Visit Charges Inpatient E&M: 11463 Subs Hosp L2 07/27/23 1156 <Electronically signed by Betty Calvin MD> Cosigner Signature (if applicable): CC: ~ Signed [facility] Work Phone: 1([phone]) 735-750608-27-2023 Progress note Author Betty Calvin [facility] July 26, 2023 11:44am Note Date/Time July 26, 2023 8: 54am [facility] Medical Records Department [address] [place] [address] Progress Note - Hospitalist 07/26/23 0850 MR#: [id number] Acct: [id number] Name: JESUSITA ENGLAND Rep #:[id number] : 1970 53 From: Betty Calvin MD PCP: VJ Maloney Status:ADM IN [facility] Reason for Visit Reason for Visit: Diagnoses [...] (Auto) 84.5 H, Lymph % (Auto) 8.3L, [place] % (Auto) 6.5, Eos % (Auto) 0.0, [...] (Auto) 71.0 H, Lymph % (Auto) 17.4L, [place] % (Auto) 10.6 H, Eos % (Auto) [...] extremities -Had echocardiogram done on 06/19/2021 at [facility] that showed normal EF and no significant [...] documentation, 36minutes Charges/Coding Visit Charges Inpatient E&M: 08787 Subs Hosp L2 07/26/23 1144 <Electronically signed by Betty Calvin MD> Cosigner Signature (if applicable): CC: ~ Signed [facility] Work Phone: 1(143) 374-279008-27-2023 Consult note Author Cole Kelly [facility] July 26, 2023 3:26am Note Date/Time July 26, 2023 3: 26am [facility] Medical Records Department [address] [place] [address] Pharmacokinetic/Renal -Consult 07/26/23324 MR#: [id number] Acct: [id number] Name: JESUSITA ENGLAND Rep #:[id number] : 1970 53 From: Cole Melton od PCP: VJ Maloney Status:ADM IN Y Location: [place] [address]-1 Consult Antibiotic Management Pharmacy has been consulted [...] Signature (if applicable): Date CC: ~ Signed [facility] Work Phone: 1([phone]) 526-345508-26-2023 Progress note Author Betty Calvin [facility] July 25, 2023 2:12pm Note Date/Time July 25, 2023 8: 31am [facility] Medical Records Department [address] [place] [address] Progress Note - Hospitalist 07/25/23826 MR#: [id number] Acct: [id number] Name: JESUSITA ENGLAND Rep #:[id number] : 1970 53 From: Betty Calvin MD PCP: VJ Maloney Status:ADM IN Location: [place]3 VL561-0 Reason for Visit Reason for Visit: Diagnoses [...] 84.5 H, Lymph % (Auto) 8.1 L, [place] % (Auto) 6.7, Eos % (Auto) 0.0, [...] 89.3 H, Lymph % (Auto) 4.5 L, [place] % (Auto) 5.5, Eos % (Auto) 0.0, [...] extremities -Had echocardiogram done on 06/19/2021 at [facility] that showed normal EF and no significant [...] Cosigner Signature (if applicable): CC: ~ Signed [facility] Work Phone: 1([phone]) 326-948008-26-2023 Consult note Author Cole Kelly [facility] July 25, 2023 6:04am Note Date/Time July 25, 2023 6: 04am [facility] Medical Records Department [address] [place] [address] Pharmacokinetic/Renal -Consult 07/25/23603 MR#: [id number] Acct: [id number] Name: JESUSITA ENGLAND Rep #:[id number] : 1970 53 From: Cole Melton od PCP: VJ Maloney Status:ADM IN Y Location: [place] [address] Consult Antibiotic Management Pharmacy has been consulted [...] Signature (if applicable): Date CC: ~ Signed [facility] Work Phone: 1([phone]) 474-178808-26-2023 History and physical note Author Adrianna Mejia [facility] July 25, 2023 1:10am Note Date/Time July 25, 2023 12 :48am [facility] Medical Records Department [address] [place] [address] H&P Exam - Hospitalist 07/25/23 0044 MR#: [id number] Acct: [id number] Name: JESUSITA ENGLAND Rep #:[id number] : 1970 53 From: Adrianna Mejia DO PCP: VJ Maloney Status:ADM IN Location: [place] [address] HPI - General General Date of Admission: 07/25/23 Date of Service: 07/25/23 Chief Complaint: LLE Redness HPI Narrative JESUSITA ENGLAND, is a 53 F who presented to the emergency department at [facility] late in the evening on 07/24/2023 with [...] antibiotics and request for admission was made. [facility] Medical History Abnormal echocardiogram Anxiety Ascending aorta [...] a small breakfast on the way to work....[employer] or a breakfast bar. For lunch she [...] 84.5 H, Lymph % (Auto) 8.1 L, [place] % (Auto) 6.7, Eos % (Auto) 0.0, [...] extremities -Had echocardiogram done on 06/19/2021 at [facility] that showed normal EF and no significant [...] on admission Charges/Coding Visit Charges Inpatient E&M: 35836 Init Hosp L2 07/25/23 0110 <Electronically signed by Adrianna Mejia DO> Cosigner Signature (if applicable): CC: Dr. Adrianna Mejia DO; VJ Maloney~ Signed [facility] Work Phone: 1(128) 271-756508-26-2023 History and physical note Author Adrianna Mejia [facility] July 25, 2023 1:10am Note Date/Time July 25, 2023 12 :48am [facility] Medical Records Department [address] [place] [address] H&P Exam - Hospitalist 07/25/23 0044 MR#: [id number] Acct: [id number] Name: JESUSITA ENGLAND Rep #:[id number] : 1970 53 From: Adrianna Mejia DO PCP: VJ Maloney Status:ADM IN Location: [place] [address] HPI - General General Date of Admission: 07/25/23 Date of Service: 07/25/23 Chief Complaint: LLE Redness HPI Narrative JESUSITA ENGLAND, is a 53 F who presented to the emergency department at [facility] late in the evening on 07/24/2023 with [...] antibiotics and request for admission was made. [facility] Medical History Abnormal echocardiogram Anxiety Ascending aorta [...] a small breakfast on the way to work....[employer] or a breakfast bar. For lunch she [...] 84.5 H, Lymph % (Auto) 8.1 L, [place] % (Auto) 6.7, Eos % (Auto) 0.0, [...] extremities -Had echocardiogram done on 06/19/2021 at [facility] that showed normal EF and no significant [...] on admission Charges/Coding Visit Charges Inpatient E&M: 11880 Init Hosp L2 07/25/23 0110 <Electronically signed by Adrianna Mejia DO> Cosigner Signature (if applicable): CC: Dr. Adrianna Mejia DO; VJ Maloney~ Signed [facility] Work Phone: [phone]) [phone] Discharge summary Author Arthur Lara [facility] July 25, 2023 12:14am Note Date/Time July 24, 2023 11 :14pm [facility] System Medical Records Department [address] [place] [address] Emergency Department Summary 07/24/23 MR#: [id number] Acct: [id number] Name: JESUSITA ENGLAND Rep #:[id number] : 1970 53 From: Arthur Lara [...] weak. 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 For lunch she [...] 84.5 H Lymph % (Auto) 8.1 L [place] % (Auto) 6.7 Eos % (Auto) 0.0 [...] Provider] - Disposition Disposition: Acute Care Hospital [facility] What to do if you have Problems For any increased pain, shortness of breath, bleeding, nausea or vomiting, chestpain, or any unexpected problems, contact your Primary Care Provider. Call [facility] ([phone]) or report to the closest Emergency Room. Call 911 if necessary. 07/25/23 001 <Electronically signed by Arthur Lara MD> Cosigner Signature (if applicable): CC: VJ Maloney ~ Signed [facility] Work Phone: 1([phone]) 151-390808-26-2023 Discharge summary Author Arthur Lara [facility] July 25, 2023 12:14am Note Date/Time July 24, 2023 11 :14pm [facility] Medical Records Department [address] [place] [address] Emergency Department Summary 07/24/23 MR#: [id number] Acct: [id number] Name: JESUSITA ENGLAND Rep #:[id number] : 1970 53 From: Arthur Lara [...] weak. 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 For lunch she [...] 84.5 H Lymph % (Auto) 8.1 L [place] % (Auto) 6.7 Eos % (Auto) 0.0 [...] Provider] - Disposition Disposition: Acute Care Hospital [facility] What to do if you have Problems For any increased pain, shortness of breath, bleeding, nausea or vomiting, chestpain, or any unexpected problems, contact your Primary Care Provider. Call [facility] ([phone]) or report to the closest Emergency Room. Call 911 if necessary. 07/25/23 0014 <Electronically signed by Arthur Lara MD> Cosigner Signature (if applicable): CC: VJ Maloney ~ Signed [facility] Work Phone: [phone]) 199-643408-09-2023 Hospital Discharge instructions Additional Instructions Ultrasound negative for DVT. Recurrent cellulitis right lower extremity. White count 14.9. Lactic acid normal at 1.6. Your erythema has been outlined. Take antibiotic as prescribed. Follow-up with your doctor closely. Return if worsening symptoms.[facility] Work Phone: [phone]) [phone] NoteChief Complaint An interactive audio and video [...] instruction: Good Anticipated Complianc (more content not included)...[id number] Note [facility]08-04-2021 History of Present illness Narrative* Nargis Bhat RN - 07/03/2021 5:48 PM EDT Pt PICC line removed. Pt discharge report called to Juan J Haq RN. Pt belongings packed and transported with patient. Pt family aware of discharge to rehab. Pt transported via [employer]. * Humaira Michael MD - 07/03/2021 8:52 AM EDT Images from the original note were not included. [facility], Pulmonary Critical Care and Sleep Medicine Patient - Jesusita England, Age - 51 y.o. - 1970 Room Number - 1561/[id number] Consulting - Ruth Soni DO Primary Care [...] Pressure injury of right buttock, stage 3 ([facility]) [L89.313] Insomnia [G47.00] Gastroesophageal reflux [...] -Will be sent to IP rehab in [place] 07/03 Anemia with low MCV 2/2 iron [...] will be sent to [facility] rehab in [place] today 07/03 pending TCC note - Goals [...] Progress Note Patient: Jesusita England Room number: [id number] Date of Admit: 06/03/2021 LOS: 29 days [...] as directed. [facility] Latosha Kay MD Pager [phone] [facility] [phone] HPI: Jesusita England is a 51 y.o. [...] Date 07/02/21 0000 - 07/02/21 2359 Shift 5905-8766 3288-7569 6711-9471 24 Hour Total INTAKE P.O.(mL/kg/hr) 200 200 [...] 358 (H) 06/21/2021 No results found for: [id number] Recent Labs 06/30/2120107/01/2132207/02/21 05 NA 134* 135 [...] from the original note were not included. [facility], Pulmonary Critical Care and Sleep Medicine Patient - Jesusita England, Age - 51 y.o. - 1970 Room Number - 1561/[id number] Consulting - Ruth Soni DO Primary Care [...] 07/01/2021 MSSA (methicillin susceptible Staphylococcus aureus) pneumonia ([facility]) [J15.211] 07/01/2021 Obstructive sleep apnea syndrome [G47.33] 06/30/2021 Body mass index (BMI) of 70 or greater in adult ([facility]) [Z68.45] 06/30/2021 Morbid obesity ([facility]) [E66.01] 06/30/2021 MIRIAM (acute kidney injury) ([facility]) [N17.9] Hyponatremia [E87.1] Poor intravenous access [Z78.9] Pressure injury of right buttock, stage 3 ([facility]) [L89.313] Insomnia [G47.00] Gastroesophageal reflux [...] Progress Note Patient: Jesusita England Room number: [id number] Date of Admit: 06/03/2021 LOS: 28 days [...] to 1500 mL Latosha Kay MD Pager [phone] [facility] [phone] HPI: Jesusita England is a 51 y.o. [...] Date 07/01/21 0000 - 07/01/21 2359 Shift 5162-2940 0250-9688 7568-8283 24 Hour Total INTAKE P.O.(mL/kg/hr) 400(0.3) 400 [...] 358 (H) 06/21/2021 No results found for: [id number] Recent Labs 06/29/21 0630 06/30/21 0202 07/01/21 [...] 6.4 (H) 07/01/2021 No components found for: XHWQ43W No results for input(s): COLORU, CLARITYU, PH, [...] decreased to 2 Liters today. Plans for [place] [facility] per TCC notes. Nephro following: ARF - likely due to ATN from Vancomycin toxicity and intravascular volume depletion. Pt endorses good intake/appetite, discussed with RD phosphorus restriction; RD provided low phosphorus nutrition information, written and oral. Malnutrition Assessment: Malnutrition Status: At risk for malnutrition (Comment) (pt extubated and tolerating oral diet without issues, MANAGER HAIR following- regular/thin liquids recommendations, pt weight has remained stable during admit, no significant physical signs) Context: Acute Estimated Daily Nutrient Needs: Energy (kcal): 1250-1420kcals/day; Weight Used for Energy Requirements: [place] Protein (g): 68-85gm pro/day; Weight Used for Protein Requirements: [place] Fluid (ml/day): per MD Recommendations; Method Used [...] Weight: 418 lb (189.6 kg) (05/31/20 per [facility]) [place] Body Weight: 125 lbs; % [place] Body Weight 335.2 % BMI: 69.7 Adjusted [...] Planning: Too soon to determine Contact: Pager #[phone] * Gutiérrez Senia Carolann, PAINT DEPARTMENT SUPERVISOR - 07/01/2021 10:33 AM EDT Physical Therapy Facility/Department: [facility] OVERFLOW Daily Treatment Note NAME: Jesusita England [...] (gastroesophageal reflux disease), Joint pain, Morbid obesity ([facility]), and MIGUEL (obstructive sleep apnea). has a past surgical history that includes Cholecystectomy; hip surgery; and Heel spur surgery. Restrictions Restrictions/Precautions Restrictions/Precautions: Fall Risk Required Braces or Orthoses?: No Position Activity Restriction Other position/activity restrictions: COVID 19- off isolation; [facility] bed; 3LO2 [place]; [facility] Subjective General Chart Reviewed: Yes Family / [...] I.S. x 10 reps, 1,000-1,250 AM-PAC Score AM-[facility] Inpatient Mobility Raw Score : 7 [...] 07/01/2021 9:59 AM EDT Occupational Therapy Facility/Department: [facility] 5N OVERFLOW Daily Treatment Note NAME: [...] and aerosols; PRN, may not be needed prison 3 Volume management per nephrology 4 Incentive [...] mL/hr (06/24/212109) sodium chloride 25 mL (06/16/21 1513) PRN meds used in last 24hrs: NA [...] PROGRESS NOTE PATIENT NAME: Jesusita England ROOM: [address] [place] [address] SERVICE DATE: 06/30/2021 SERVICE TIME: 12:57 PM LENGTH OF STAY: 27 day(s) REFERRING PHYSICIAN: Ruth Soni DO PRIMARY CARE PHYSICIAN: No primary care provider on file. OUTPATIENT INSURANCE ACCOUNT REPRESENTATIVE: None ACTIVE & BACKGROUND PROBLEM LIST: 1. [...] and make BiPAP setting to reflect. Pager: [phone] Associated attestation - Kleber Toure DO - [...] PROGRESS NOTE PATIENT NAME: Jesusita England ROOM: [facility] SERVICE DATE: 06/29/2021 SERVICE TIME: 3:24 PM LENGTH OF STAY: 26 day(s) REFERRING PHYSICIAN: Ruth Soni DO PRIMARY CARE PHYSICIAN: No primary care provider on file. OUTPATIENT INSURANCE ACCOUNT REPRESENTATIVE: None ACTIVE & BACKGROUND PROBLEM LIST: 1. [...] cath -Agree Dysphagia/ Post extubation dysphagia - MANAGER HAIR therapy following - Protonix 40 mg po [...] PROGRESS NOTE PATIENT NAME: Jesusita England ROOM: [address] [place] [address] SERVICE DATE: 06/28/2021 SERVICE TIME: 7:16 PM LENGTH OF STAY: 25 day(s) REFERRING PHYSICIAN: Ruth Soni DO PRIMARY CARE PHYSICIAN: No primary care provider on file. OUTPATIENT INSURANCE ACCOUNT REPRESENTATIVE: None ACTIVE & BACKGROUND PROBLEM LIST: 1. [...] Date 06/28/21 0000 - 06/28/21 2359 Shift [id number] 0839-9143 9280-5641 24 Hour Total INTAKE P.O.(mL/kg/hr) 800(0.5) 800 [...] care of this patient, * Senia Gutiérrez, PAINT DEPARTMENT SUPERVISOR - 06/28/2021 2:42 PM EDT Physical Therapy Facility/Department: [facility] Daily Treatment Note NAME: Jesusita England [...] position/activity restrictions: COVID 19- off isolation; [facility] bed; 2LO2 NC; lucho Subjective General Chart [...] Pumps: x 10 reps each AM-PAC Score [facility] Inpatient Mobility Raw Score : 7 (06/28/21 144) [facility] Inpatient T-Scale Score : 26.42 (06/28/21 [...] (tpx2) Senia Gutiérrez PTA * Lanny Mejia, BREAKER UP - DIRECTOR OF FRONT OFFICE - 06/28/2021 1:28 PM EDT Images from the original note were not included. [facility] Wound Care Follow up Note Jesusita England AGE: 51 y.o. GENDER: female : 1970 EPISODE DATE: Subjective: HISTORY of PRESENT ILLNESS HPI Jesusita England is a 51 y.o. female who presents for a wound follow up. History of Wound Context: Patient presented 3 weeks ago as a transfer from [facility] due to level of care benefits at [facility] and deterioration. At time, pt stated [...] she needed medical evaluation. Patient arrived to [facility] on06/02[facility]21. Interval History: The patient is currently [...] in no acute distress Lower back: improved. 2w8dlzd yellow slough with surrounding pink tissue. Fungal [...] from the original note were not included. [facility], Pulmonary Critical Care and Sleep Medicine Patient - Jesusita England, Age - 51 y.o. - 1970 Room Number - [id number] Consulting - Ruth Soni DO Primary Care Physician - No primary care provider on file. 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 Pager: [phone] I spent over 51% total time of 40 minutes counseling (or coordinating care). Discussed current planof care with patient. Coordinated care with resident team. * Latosha Kay P - 06/27/2021 3:22 PM EDT Images from the original note were not included. Nephrology Progress Note Patient: Jesusita England Room number: [id number] Date of Admit: 06/03/2021 LOS: 24 days [...] was extubated 06/18 and transferred to the [facility] and has remained on 5L NC. [...] Got 1 dose lasix (06/25), last na [id number]. Will not give IVF or lasix for now unless acutely indicated. Her o2 reqts have come down, continue FR. Dr april Araujo will be covering 06/18-06/30, I will be back Thursday Latosha Kay MD Pager [phone] [facility] [phone] HPI: Jesusita England is a 51 y.o. [...] Date 06/27/21 0000 - 06/27/21 2359 Shift [id number] [id number] 0621-5771 24 Hour Total INTAKE Shift Total(mL/kg) OUTPUT [...] 358 (H) 06/21/2021 No results found for: [id number] Recent Labs 06/25/21 0349 06/25/21 1405 06/25/21 [...] 4.8 (H) 06/27/2021 No components found for: [id number] Recent Labs 06/26/21 1520 COLORU Yellow LABSPEC 1.007 GLUCOSEU Normal LEUKOCYTESUR Negative BILIRUBINUR Negative UROBILINOGEN Normal RBCUA 3-5* WBCUA 3-5 BACTERIA Moderate* Diagnostic Studies: CXR: reviewed in PACS. Personally reviewed available data [labs, MARS, radiologic studies, and electronic records]. Pleasecall with any questions. * Senia Gutiérrez, PAINT DEPARTMENT SUPERVISOR - 06/27/2021 3:05 PM EDT Physical Therapy Facility/Department: [facility] Daily Treatment Note NAME: Jesusita England [...] reps each G-Code OutComes Score AM-PAC Score [facility] Inpatient Mobility Raw Score : 7 (06/27/21 1505) [facility] Inpatient T-Scale Score : 26.42 (06/27/21 [...] - per social work note, insurance denied [facility] [facility]; will try snf Anemia with [...] external cath Dysphagia/ Post extubation dysphagia - MANAGER HAIR therapy following - Protonix 40 mg po [...] given by consultants and care team. Pager: [phone] I spent over 51% total time of 43 minutes counseling (or coordinating care). Discussed current planof care with patient. Coordinated care with resident team. Also discussed with respiratory therapy. * Amie Chaidez, MANAGER HAIR - 06/26/2021 3:50 PM EDT Speech Language Pathology Facility/Department: [facility] Dysphagia Daily Treatment Note NAME: Jesusita [...] Trials: Thin Single and sequential straw sips [place] NA Honey NA Puree NA Solid [place] [...] 15:20 Time out: 15:40 Amie Chaidez MA, CCC-MANAGER HAIR * Monae Huang, DO - 06/26/2021 8:35 [...] Issues with Line - PICC line issues MIRIAM 2/2 likely due to Lasix, Vancomycin trough [...] downtrend, monitor Dysphagia/ Post extubation dysphagia - MANAGER HAIR therapy following - Protonix 40 mg po [...] She is asking that I do a Recy-dh-Udbm for Rehab from insurance as university relations director (cody Serrano) thinks they can help her a lot. I will reach out to [facility] to help start that process. Patient currently [...] very weak, SW following for placement at [facility] as pt was denied by [...] extubated and tolerating oral diet without issues, MANAGER HAIR following- regular/thin liquids recommendations, pt weight has [...] 418 lb (189.6 kg) (05/31/20 per EPIC) [place] Body Weight: 125 lbs; % [place] Body Weight 335.2 % BMI: 69.7 Adjusted [...] Planning: Too soon to determine Contact: pager [phone] or PerfectS[employer] * Monae Huang DO - [...] IP rehab - per social work note, [facility] [facility] unit will accept pt (pending insurance [...] downtrend, monitor Dysphagia/ Post extubation dysphagia - MANAGER HAIR therapy following - Protonix 40 mg po [...] show Na<5). - respiratory status improving. Pager: [phone] I spent over 51% total time of 27 minutes counseling (or coordinating care). Discussed current planof care with patient. Coordinated care with resident team. * Khai Curtis, PAINT DEPARTMENT SUPERVISOR - 06/24/2021 3:12 PM EDT Physical Therapy Facility/Department[facility] Treatment Note NAME: Jesusita England : 1970 Date of Service: 06/24/2021 Discharge Recommendations: LTACH PT Equipment Recommendations Equipment Needed: No Other: tbd Assessment Body structures, Functions, Activity limitations: Decreased functional mobility ;Decreased ADL status;Decreased strength;Decreased balance;Decreased endurance Assessment: Pt had just finsihed standing trails w/ OT upon PAINT DEPARTMENT SUPERVISOR arrival today, but agreeable to learning HEP [...] Other position/activity restrictions: COVID 19- off isolation; [facility] bed; 5LO2 NC; Subjective General Chart Reviewed: Yes Response To Previous Treatment: Patient with no complaints from previous session. Subjective Subjective: Pt just getting laid down in bed w/ OT upon PAINT DEPARTMENT SUPERVISOR arrival. Pt agreeable to PT. nsg cleared pt for PT. Pt is SEE TODAY per [facility] General Comment Comments: PAINT DEPARTMENT SUPERVISOR wore N95 mask, gloves during PT Rx. [...] Present: Yes (Pt's daughter arrived, Sisi, from [facility]) Diagnosis: Pneumonia due to COVID-19 Subjective Subjective: [...] Ambulation Assistance: Independent Transfer Assistance: Independent Active Geospatial Image Analyst: Yes Type of occupation: works at [employer] Additional Comments: Indep with ADL's. Share cooking, [...] /ADL, Safety Education & Training OutComes Score [facility] Daily Activity Inpatient How much help [...] much help for eating meals?: A Little [facility] Inpatient Daily Activity Raw Score: 13 [facility] Inpatient ADL T-Scale Score : 32.03 ADL Inpatient CMS 0-100% Score: 63.03 ADL Inpatient CMS G-Code Modifier : CL AM-PAC Score [facility] Inpatient Daily Activity Raw Score: 13 (06/24/21 145) [facility] Inpatient ADL T-Scale Score : 32.03 [...] Plan of Care supervision is transferred to [facility] Occupational Therapist. This provider wore an N95, [...] 11:00 AM EDT Speech Language Pathology Facility/Department: [facility] Dysphagia Treatment Note NAME: Jesusita England [...] small sips, and respiratory breaks as needed. MANAGER HAIR will continue to follow with dysphagia plan [...] Intracatheter Q8H Continuous Infusions: dextrose 100 mL/hr (06/22/219) sodium chloride 25 mL (06/16/21 0928) PRN [...] minced and moist diet with thin liquids. MANAGER HAIR will continue to follow with dysphagia plan [...] patient very motivated to get better. Pager: [phone] I spent over 51% total time of [...] Q8H Continuous Infusions: dextrose 100 mL/hr (06/22/21 3851) sodium chloride 25 mL (06/16/21 8954) PRN meds used in last 24hrs: dextrose [...] for patient to do IP Rehab at [place] (where sister works as a nurse). PT discharge recomm on 06/20 to LTACH. LTACH refused. Looking into [facility].. -work with PT - once able to [...] minced and moist diet with thin liquids. MANAGER HAIR will continue to follow withdysphagia plan of [...] nausea, and diarrhea. - monitor Cr Pager: [phone] I spent over 51% total time of 44 minutes counseling (or coordinating care). Discussed current planof care with patient. Coordinated care with resident team. Also discussed with sister as per above. * Carrie Cardenas - 06/22/2021 12:59 PM EDT [facility] Respiratory Care Department Progress Note As part [...] - Currently, laying in bed doing well. MANAGER HAIR saw her yesterday and advanced her diet. [...] for patient to do IP Rehab at [place] (where sister works as a nurse). -work [...] minced and moist diet with thin liquids. MANAGER HAIR will continue to follow withdysphagia plan of [...] IP Rehab in out of town (? [place]) - she is hoping patient will qualify for IP Rehab for discharge to her facility. Pager: [phone] I spent over 51% total time of [...] 3:00 PM EDT Speech Language Pathology Facility/Department: [facility] Dysphagia Treatment Note NAME: Jesusita England [...] small sips, and respiratory breaks as needed. MANAGER HAIR will continue to follow with dysphagia plan [...] from the original note were not included. [facility] - Infectious Diseases Attending Progress Note Subjective: [...] hypoxic respiratory failure - dx 06/02 in [facility] - sx onset 1 week prior to [...] flow o2. Dysphagia c/f potential aspiration but MANAGER HAIR following and assessing dysphagia. Review of Systems [...] minced and moist diet with thin liquids. MANAGER HAIR will continue to follow withdysphagia plan of [...] minced and moist diet with thin liquids. MANAGER HAIR will continue to follow withdysphagia plan of [...] to rise. Remainder per residents note Pager: [phone] I spent over 51% total time of 49 minutes counseling (or coordinating care). Discussed current planof care with patient. Coordinated care with resident team. * Gisel Saleh RN - 06/21/2021 12:07 AM EDT Pt transferred to [facility]. Belongings with patient. Family notified prior to leaving from visiting. RN at bedside when transferred. * Eladia Scanlon MD - 06/20/2021 10:17 PM EDT Images from the original note were not included. [facility] - Infectious Diseases Attending Progress Note Subjective: [...] hypoxic respiratory failure - dx 06/02 in [facility] - sx onset 1 week prior to [...] Care Encounter - full code - sisterMaggie ([phone]), who is RN, is primary point of [...] needs after this visit, anticipate transfer to [facility] and then transition to out rehabilitation [...] at home until she was admitted to [facility] in [place]. She recevied treatment there, as noted by ID, for COVID and found to have MSSAby nasal swab. For insurance reasons, she was transferred to [facility] and was intubated. She is now [...] no myoclonus Psychiatric: not anxious or agitated [place] Symptom Assessment Score [place] Score Pain Score 0 Tiredness Score 3 [...] Lopez MD - 06/20/2021 6:07 PM EDT [facility] Palliative Care Transitions of Care Note [...] at home until she was admitted to [facility] in [place]. She recevied treatment there, as noted by ID, for COVID and found to have MSSA by nasal swab. For insurance reasons, she was transferred to [facility] and was intubated 06/03. She is [...] 11:31 AM EDT Speech Language Pathology Facility/Department: [facility] ICU T3 Dysphagia Treatment Note NAME: [...] pain. Patient agreeable to minimal trials with MANAGER HAIR. O: Assess diet tolerance A: Patient accepted [...] respiratory rate throughout PO intake this date. MANAGER HAIR offered patient upgrade trials; patient politely declined. [...] minced and moist diet with thin liquids. MANAGER HAIR will continue to follow with dysphagia plan of care, and will assess with upgrade trials as patient is able. Time In: 1005 Total session time: 15 minutes A surgical mask and gloves were worn throughout this session. * Promise Davis, PT - 06/20/2021 10:21 AM EDT Physical Therapy Facility/Department: [facility] ICU T3 Initial Assessment NAME: Jesusita [...] Ambulation Assistance: Independent Transfer Assistance: Independent Active Geospatial Image Analyst: Yes Type of occupation: works at [employer] Additional Comments: Pt ambulates with rollator walker. Spouse was also diagnosed with COVID-recovered. Cognition Cognition Overall Cognitive Status: [facility] Objective Observation/Palpation Posture: Fair Observation: pressure [...] place: No G-Code OutComes Score AM-PAC Score [facility] Inpatient Mobility Raw Score : 6 (06/20/21 1021) [facility] Inpatient T-Scale Score : 23.55 (06/20/21 [...] Plan of Care supervision is transferred to [facility] Rehab Department Physical Therapist. Therapy Time Individual [...] Conjunctiva []Injected [x]Non-Injected Pinnae []Normal []Other Dentitian [][place] Teeth []Dentures Oral Mucosa [x][place] []Moist []Dry Oral ETT []Present [x]Absent Neck: [...] [x]Absent STEELE ([x]RUE [x]RLE [x]LUE [x]LLE) Neurologic: NULATO []Yes [x]No Corneal reflexes []Present []Absent Plantar [...] 06/18/21 0619 06/19/21 0246 PHART 7.503* 7.517* [id number] 41.5 41.3 PO2ART 73.2* 53.7* [id number] 31.9* 32.7* D4GSZJKY 93.9* 87.9* FIO2A 50% 30% Lactic Acid: [...] from the original note were not included. [facility] - Infectious Diseases Attending Progress Note Subjective: [...] hypoxic respiratory failure - dx 06/02 in [facility] - sx onset 1 week prior to [...] a Minced and Moist Diet/Thin Liquids per MANAGER HAIR recommendations. Pt has not yet had a [...] of COVID isolation as well as ofyeerday, MANAGER HAIR completed assessment this morning with minced and [...] discussed with pt current diet order per MANAGER HAIR recommendations and need for softer foods due [...] not yet had a solid meal but MANAGER HAIR cleared for minced and moist today, pt [...] Weight: 418 lb (189.6 kg) (05/31/20 per [facility]) [place] Body Weight: 125 lbs; % [place] Body Weight 327.5 % BMI: 68.1 Adjusted [...] 10:14 AM EDT Speech Language Pathology Facility/Department: [facility] ICU T3 CLINICAL BEDSIDE SWALLOW EVALUATION [...] upright and utilizing small bites and sips. MANAGER HAIR will initiate a dysphagia plan of care and continue to follow. Treatment Plan Requires MANAGER HAIR Intervention: Yes Duration/Frequency of Treatment: 3x/week for [...] Call light within reach;Nurse notified Therapy Time MANAGER HAIR Individual Minutes Time In: 904 Time Out: 924 Minutes: 20 MANAGER HAIR Total Treatment Time Total Treatment Time: 20 A surgical mask and gloves were worn throughout this session. Carley Cortes MS, CCC/MANAGER HAIR 06/19/2021 10:14 AM * Elijah Allred MD [...] Conjunctiva []Injected []Non-Injected Pinnae []Normal []Other Dentitian [][place] Teeth []Dentures Oral Mucosa [][place] []Moist []Dry Oral ETT [x]Present []Absent Neck: [...] []Absent STEELE ([]RUE []RLE []LUE []LLE) Neurologic: NULATO []Yes []No Corneal reflexes []Present []Absent Plantar [...] 06/18/21 0619 06/19/21 0246 PHART 7.503* 7.517* [id number] 41.5 41.3 PO2ART 73.2* 53.7* IUD9SGK 31.9* 32.7* T6ZNCEBA 93.9* 87.9* FIO2A 50% 30% Lactic Acid: [...] of the patient. I agree with Dr. Alrled's assessment, and we discussed the management of the patient. See orders. Alert, unlabored. No organomegaly, no cyanosis. No clubbing. No NULATO. Continue lasix. Taper off precedex. Remove lines. Abx per ID recs. * Eladia Scanlon MD - 06/18/2021 11:10 PM EDT Images from the original note were not included. [facility] - Infectious Diseases Attending [...] to preserve PPE for other caregivers, a ykzb-on-tbkz encounter with the patient was not performed. 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 Reassured the patient [...] at home until she was admitted to [facility] in [place]. She recevied treatment there, as noted by ID, for COVID and found to have MSSAby nasal swab. For insurance reasons, she was transferred to [facility] and was intubated. She is now [...] unable to assess orientation due to intubated [place] Symptom Assessment Score [place] Score Pain Score 0 Tiredness Score 5 [...] Harding RCP - 06/18/2021 11:45 AM EDT [facility] Respiratory Care Department Progress Note Spontaneous Breathing [...] Conjunctiva []Injected []Non-Injected Pinnae []Normal []Other Dentitian [][place] Teeth []Dentures Oral Mucosa [][place] []Moist []Dry Oral ETT [x]Present []Absent Neck: [...] []Absent STEELE ([]RUE []RLE []LUE []LLE) Neurologic: NULATO []Yes []No Corneal reflexes []Present []Absent Plantar [...] Labs 06/15/21 23206/18/21 0619 PHART 7.489* 7.503* [id number] 42.5 41.5 PO2ART 84.9 73.2* TSX2TYK 31.6* 31.9* R1MNHFKH 95.6 93.9* FIO2A No data 50% Lactic [...] Zelalem Score: Zelal[place] Scale Score: 13 (06/17/21 9078) Wound Care and Prevention: NA - patient [...] from the original note were not included. [facility] - Infectious Diseases Attending Progress Note Subjective: [...] to preserve PPE for other caregivers, a lebz-uj-ddgp encounter with the patient was not performed. [...] hypoxic respiratory failure - dx 06/02 in [facility] - sx onset 1 week prior to [...] Conjunctiva []Injected []Non-Injected Pinnae []Normal []Other Dentitian [][place]eth []Dentures Oral Mucosa [][place] []Moist []Dry Oral ETT [x]Present []Absent Neck: [...] []Absent STEELE ([]RUE []RLE []LUE []LLE) Neurologic: NULATO []Yes []No Corneal reflexes []Present []Absent Plantar [...] 0101 06/15/21 2321 PHART 7.501* 7.518* 7.489* LPT4DYF 41.9 41.8 42.5 PO2ART 83.7 68.3* 84.9 MUK2QWM 32.0* 33.2* 31.6* O9DUUDSJ 95.6 92.8* 95.6 FIO2A No data No [...] from the original note were not included. [facility] - Infectious Diseases Attending Progress [...] to preserve PPE for other caregivers, a ezks-dh-abbm encounter with the patient was not performed. [...] hypoxic respiratory failure - dx 06/02 in [facility] - sx onset 1 week prior to [...] Conjunctiva []Injected []Non-Injected Pinnae []Normal []Other Dentitian [][place] Teeth []Dentures Oral Mucosa [][place] []Moist []Dry Oral ETT [x]Present []Absent Neck: [...] []Absent STEELE ([]RUE []RLE []LUE []LLE) Neurologic: NULATO []Yes []No Corneal reflexes []Present []Absent Plantar [...] 0101 06/15/21 2321 PHART 7.501* 7.518* 7.489* WZW1WDN 41.9 41.8 42.5 PO2ART 83.7 68.3* 84.9 OBP2UGU 32.0* 33.2* 31.6* F7GUTOYM 95.6 92.8* 95.6 FIO2A No data No [...] See [x]progress note []H&P []Consult documented by [x]housecalls nurse []IDALIA which reflects my hpi, pmh, psh, ros, fh, sh as well with my additions, as I discussed with the [x]housecalls nurse []IDALIA. For my exam, assessment and plan [...] []Injected []Non-Injected / Pinnae []Normal []Other/ Dentitian [][place] Teeth []No [place] Teeth []Dentures Oral Mucosa [][place] []Moist []Dry/ Oral ETT []Present []Absent Neck: [...] [x]Absent/ STEELE ([x]RUE [x]RLE [x]LUE [x]LLE) Neurologic: NULATO []Yes [x]No Corneal reflexes []Present []Absent / [...] Conjunctiva []Injected []Non-Injected Pinnae []Normal []Other Dentitian [][place] Teeth []Dentures Oral Mucosa [][place] []Moist []Dry Oral ETT [x]Present []Absent Neck: [...] []Absent STEELE ([]RUE []RLE []LUE []LLE) Neurologic: NULATO []Yes []No Corneal reflexes []Present []Absent Plantar [...] 0038 06/15/21 010 PHART 7.480* 7.501* 7.518* AEI5FMT 43.4 41.9 41.8 PO2ART 63.5* 83.7 68.3* HHX8XQA 31.6* 32.0* 33.2* P3BJPWLU 92.1* 95.6 92.8* FIO2A No data No [...] See [x]progress note []H&P []Consult documented by [x]housecalls nurse []IDALIA which reflects my hpi, pmh, psh, ros, fh, sh as well with my additions, as I discussed with the [x]housecalls nurse []IDALIA. For my exam, assessment and plan [...] []Injected []Non-Injected / Pinnae [x]Normal []Other/ Dentitian [x][place] Teeth []No [place] Teeth []Dentures Oral Mucosa [x][place] []Moist []Dry/ Oral ETT [x]Present []Absent Neck: [...] [x]Absent/ STEELE ([x]RUE [x]RLE [x]LUE [x]LLE) Neurologic: NULATO []Yes []No Corneal reflexes []Present []Absent / [...] Bellamy RCP - 06/14/2021 10:02 AM EDT [facility] Respiratory Care Department Progress Note Spontaneous Breathing [...] from the original note were not included. [facility] - Infectious Diseases Attending [...] Mental Status: She is alert. 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 2. Will continue to monitor tolerance [...] Anthropometric Measures: Height: 5 [facility] Work Phone: 1(684) 212-997308-04-2021 Hospital Discharge instructions* Discharge Instr - Diet* [...] Agent's Name Healthcare Agent's Phone Number 06/03/21 1359 No, patient does not have an advance directive for healthcare treatment Admitting Physician: Ruth Soni DO PCP: No primary care provider on file. Discharging Nurse: audrey Discharging Hospital Unit/Room#: [id number]/[id number] Discharging Unit Emergency Contact: Extended Emergency Contact [...] Pressure injury of right buttock, stage 3 ([facility]) L89.313 MIRIAM (acute kidney injury) ([facility]) N17.9 Hyponatremia E87.1 Poor intravenous access Z78.9 Obstructive sleep apnea syndrome G47.33 Neoplasm of uncertain behavior of skin D48.5 Morbid obesity ([facility]) E66.01 Iron deficiency anemia due to chronic blood loss D50.0 Body mass index (BMI) of 70 or greater in adult ([facility]) Z68.45 Ventilator associated pneumonia ([facility]) J95.851 Evin albicans infection B37.9 MRSA pneumonia ([facility]) J15.212 MSSA (methicillin susceptible Staphylococcus aureus) pneumonia ([facility]) J15.211 Isolation/Infection: Isolation No Isolation [...] RN Added from external infection. - 05/27/21 [facility] ([facility]) per ODRS/pw May discontinue isolation per discussion [...] Assisted Dressing Assisted Toileting Dependent Feeding Independent Acute Care Certified Nursing Assistant Independent Med Delivery whole Wound Care Documentation [...] Healing % 100 06/22/21 1000 Wound Assessment [place]/red 06/28/21 0845 Drainage Amount None 06/28/21 0845 [...] % (l*w) 0 06/20/21 2120 Wound Assessment [place]/red 06/25/21 1130 Drainage Amount None 06/28/21 0845 [...] Readmission: 32 Discharging to Facility/ Agency Name: [facility] Address:[address] [place], [place] [id number] Dialysis Facility (if applicable) Name: Address: Dialysis Schedule: Phone: Fax: Record Searcher/Credit Administration Manager signature: ICIAN SECTION Prognosis: Fair Condition at [...] the diagnosis listed and that she requires Assisted Facilityfor greater 30 days. Update Admission H&P: No change in H&P PHYSICIAN SIGNATURE: documented in this [facility] Work Phone: 1(437) 727-606707-05-2021 Miscellaneous Notes* Plan of Care - Nikia [...] 06/03/2021 12:05 PM EDT Patient discharged to [facility] via [facility]. Report given to Ja SUBRAMANIAN at [facility]. Patient belongings sent with her. Patient sister [...] Follows commands and Jessica. Sinus rhythm per gusset edger. Will continue to monitor. Please see flow sheets for details. documented in this [facility]07-05-2021 Hospital Discharge instructions* Discharge Instr - Activity* Flash De La Rosa PA-C - 06/03/2021 8:48 AM EDT aat * Discharge Instr - Diet* Flash De La Rosa PA-C - 06/03/2021 8:48 AM EDT aat documented in this [facility]07-05-2021 Hospital course Narrative* Flash De La Rosa PA-C - 06/03/2021 8:43 AM EDT Discharge Summary Summary Time: 06/03/21 8:49 AM Name: Jesusita England Age: 51 y.o. Birthday: 1970 Admit Date: 06/02/2021 10:38 AM Discharge Date: 06/03/2021 Brief Summary of Hospital Course: Patient is a 51 y.o. female presents to [facility] for evaluation of SOB. 51-year-old female [...] for the patient to be transferred to [place] in the emergency department. Transportation has now been arranged. Today the patient will be transferred per her request to [facility]. Consultants: N/A Discharge Diagnosis: Active Problems: [...] diet as tolerated. Discharge Follow-up: Transfer to [place] Discharge Disposition: Patient will be discharged in stable condition. Discharge Time: Including assessment, planning, and medication reconciliation was greater than 35 min. Flash De La Rosa PA-C completing Discharge Summary for Dr. Naranjo Please note portions of this note utilized myOrderation software, please excuse any typographical or grammatical [...] and plan. DOS: Patient requested transfer to [facility] in [place]. She is SOB. Some cough. ROS: Ten systems reviewed, unless limited by patient' or care providers' inability or unavailability. Reported above or following. Assessment and additional plans: Hypoxic respiratory failure Severe Covid 19 with bilateral PNA/ARDS Obesity and MIGUEL Plan: BiPAP; O2; steroids; DVT prophylaxis; transfer to tertiary care hospital. Contact me if you need any clarification. Salomon Ballesteros MD [facility] History and physical note* Flash De La Rosa PA-C - 06/02/2021 5:02 PM EDT History and Physical Examination 06/02/21 5:03 PM Chief Complaint: Shortness of Breath History of Present Illness: Patient is a 51 y.o. female presents to [facility] for evaluation of SOB. 51-year-old female [...] Please note Portions of this note utilized myOrderation software, please excuse any typographical or grammatical errors [facility] Associated attestation - Guilherme Naranjo DO [...] and plan of care. documented in this [facility]07-04-2021 Procedure note* Al Stack APRN-CNP - 06/02/2021 4:50 PM EDT Associated Order(s): PROCEDURE - CENTRAL LINE WITH OR WITHOUT PAC INDICATION: Vascular Access / Critically Ill / Limited access PROCEDURE BRIDGE CLUB MANAGER: Nathen Stack APRN-DIRECTOR OF FRONT OFFICE ATTENDING PHYSICIAN: In Attendance (N) CONSENT: Consent [...] is less than 10ml. documented in this [facility]07-04-2021 Emergency department Note* Nora Dominguez RN - 06/02/2021 3:47 PM EDT Sister Maggie Sanders called at [phone] and updated that the pt has been transferred to the ICU room 1032. * Mary Anne Soto PCA - 06/02/2021 3:00 PM EDT Patient assigned to room #3785. * Mary Anne Soto PCA - 06/02/2021 2:04 PM EDT Called [facility] at this time, spoke with Maxim to advise that patient will be admitted toour facility for the time being because we are unable to arrange transport for her. * Mary Anne Soto PCA - 06/02/2021 1:[address] Naranjo called back at this time. * Mary Anne Soto PCA - 06/02/2021 1:44 PM EDT Kirsten with the [facility] transfer center called back at this time, patient assigned to room #T3, ICU, room 303. * Mary Anne Soto PCA - 06/02/2021 1:38 PM EDT [facility] called back at this time, Dr. Soni accepted for patient to go to ICU, waiting on a room assignment. * Mary Anne Soto PRIVATE BRANCH EXCHANGE SERVICE ADVISER - 06/02/2021 1:13 PM EDT Called [facility] at this time, advised that patient is getting placed on Bi pap, they will call back with an ICU room assignment. * Kellen Yang RN - 06/02/2021 1:02 PM EDT C/O SOB. Dr. Krystle beal. Saturation 84%. RT called. * Becky SotoDARIN dawn - 06/02/2021 12:58 PM EDT Called [facility] at this time to see if they have a transport crew available, they do notemploy a transport company. * CharlesMray Anne rueda PCA - 06/02/2021 12:54 PM EDT [facility] do not have a bariatric cart, ALS crew, or is out of the service area. * Mary Anne Soto PCA - 06/02/2021 12:38 PM EDT Disc requested from radiology at this time. * Mary Anne Soto PCA - 06/02/2021 12:20 PM EDT [facility] called back at this time. * Nawaf Dalton MD - 06/02/2021 10:49 AM EDT Emergency Department Report [facility] EMERGENCY DEPARTMENT Service Date:.06/02/21 PCP: Alondra Crews [...] a fever. She has been taking some uapv-yax-pqatxzuodokr and cold medications. She states she has [...] Social Gatherings with Friends and Family: Attends [employer]: Active Member of Clubs or Organizations: [...] Use Authorization (EUA) for the qualitative detection [id number] nucleic acid. CBC, EDIF, PLATELET Result Value [...] a sinus rhythm rate of 79 bpm. NC interval 150 ms. No STEMI. QRS duration [...] his CRP. Patient is requesting transfer to [facility]. I did speak to the [facility] cyber transport systems specialist they have accepted the patient. Patient has [...] patient's size. I placed acall into the cad drafter. I spoke with this patient. She will agree to stay [facility] a [facility]. They willattempt to schedule a transport in the morning to [facility]. Nawaf Dalton MD 06/02/21 1410 * Nora Dominguez RN - 06/02/2021 10:39 AM EDT Bed: E004 Expected date: Expected time: Means of arrival: Comments: EMS documented in this [facility]07-04-2021 History of Present illness Narrative* Tori Jimenes RCP - 06/02/2021 1:25 PM EDT Patient placed on BIPAP by this AUTO PHONE INSTALLER. 14/8 100%. Patient tolerating well, sats increasing to 94%. [facility] this [facility] Author Rubin Hadley [facility] April 08, 2024 2:34pm Note Date/Time April 08, 2024 2:30p m [facility] Medical Records Department [address] [place] [address] Discharge Summary 04/08/24 1427 MR#: [id number] Acct: [id number] Name: JESUSITA ENGLAND Rep #:[id number] 1 : 1970 54 From: Rubin frost MD PCP: VJ Maloney Status:ADM IN Location: [place] [id number] Providers Date of Admission: 04/04/24 Primary Care Physician: VJ Maloney Consultations 04/06/24 14:49 Consult: Infectious Disease [...] consult with Dr. Garcia who presents to [facility] ER complaining of bilateral lower extremity redness [...] medical floor for ongoing care [facility] that is expected to be [...] issues. They brought her down to [facility] and recommended discharge on cefdinir 300 mg [...] Self Care Charges/Coding Visit Charges Inpatient E&M: 34926 Disch Hosp >30min 04/08/24 1434 <Electronically signed by Rubin Hadley MD> Cosigner Signature (if applicable): CC: Dr. Rubin Hadley MD; VJ Maloney~ Signed [facility] Work Phone: Evaluation note* Diagnosis Exertional shortness of breath Shortness of breath [facility] Diagnosis Pneumonia due to 2019 [...] Thrombocytopenia Thrombocytopenia, unspecified documented [facility] this encounter [facility]* Diagnosis Pneumonia due to COVID-19 virus- Primary Pressure injury of right buttock, stage 3 ([facility]) Palliative care encounter Encounter for palliative care COVID-19 Anxiety Anxiety state, unspecified Insomnia Insomnia, unspecified Constipation Unspecified constipation Gastroesophageal reflux disease without esophagitis Esophageal reflux Angular cheilitis Diseases of lips 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 MIRIAM (acute kidney [...] aureus MSSA (methicillin susceptible Staphylococcus aureus) pneumonia ([facility]) Methicillin susceptible pneumonia due to Staphylococcus aureus documented in this encounter [facility] Work Phone: Evaluation note* Diagnosis Muscle swelling Swelling of limb Nodule of soft tissue Localized superficial swelling, mass, or lump documented in this encounter [facility]* Diagnosis Onset Date Resolution Status Hypoxemia requiring supplemental oxygen acute Lymphedema associated with obesity acute MIGUEL (obstructive sleep apnea) chronic [facility] Work Phone: Evaluation noteNo assessment information available [facility] Work Phone: Evaluation note* Diagnosis Onset Date Resolution Status Cellulitis acute Failure of outpatient treatment acute Hyperglycemia acute Obesity acute [facility] Work Phone: Evaluation note* Diagnosis Onset Date Resolution Status Cellulitis acute Failure of outpatient treatment acute Hyperglycemia acute Lymphedema associated with obesity acute Obesity acute [facility] Work Phone: evaluation note* Diagnosis Onset Date Resolution Status Cellulitis acute Lymphedema associated with obesity acute Cellulitis acute Lymphedema associated with obesity acute Sepsis acute [facility] Work Phone: Evaluation note* Diagnosis Morbid obesity (HCC)- Primary Morbid obesity Recurrent cellulitis of lower extremity Chronic acquired lymphedema Other noninfectious lymphedema [facility] Diagnosis Onset Date Resolution Status Cellulitis acute Headache acute Lymphedema associated with obesity acute PLMD (periodic limb movement disorder) acute Super obesity acute [facility] Work Phone: evaluation note* Diagnosis Positive LIZ (antinuclear antibody)- Primary Other and unspecified nonspecific immunological findings Arthralgia, unspecified joint CRP elevated Elevated C-reactive protein (CRP) Lymphedema Other noninfectious lymphedema Recurrent cellulitis [facility] Author Arthur Thompson [facility] August 18, 2023 12:50am Note Date/Time August 18, 2023 12:46am [facility] Medical Records Department [address] [place] [address] History & Physical Exam 08/18/235 MR#: [id number] Acct: [id number] Name: JESUSITA ENGLAND Rep #:[id number] 2 : 1970 53 From: Arthur Thompson [...] admitted for further IV antibiotics and fluid. 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 For lunch she [...] (Auto) 90.9 H, Lymph % (Auto) 3.2L, [place] % (Auto) 5.0, Eos % (Auto) 0.0, [...] 23:46 EDT Reading Location ID and State: [facility] / [place] Tel , Service support , Assessment & [...] weight heparin Charges/Coding Visit Charges Inpatient E&M: 84421 Init Hosp L2 08/18/23 0050 <Electronically signed by Arthur Thomposn MD> Cosigner Signature (if applicable): CC: Dr. Arthur Thompson MD; VJ Maloney~ Signed [facility] Work Phone: History of Present illness Narrative* [...] Initial labs are noted as in progress. [facility] DO Work Phone: reason for visit Narrative* Evaluate and Treat (Routine) - Pending Review Specialty Diagnoses / Procedures Referred By Contac t Referred To Contact Rheumatology Diagnoses Arthralgia, unspecified joint Positive LIZ (antinuclear antibody) CRP elevated Provider, Generic Yamile Alva DO [address] [place] [address] Phone: tel: fax: Referral ID Status Reason Start Date Expiration Date V isits Requested Visits Authorized [id number] Pending Review 06/29/2024 06/29/2025 1 1 [facility] Summary Purpose Family History Relationship [...] No July 04, 2021 4:22pm Power of Egg Buyer No July 04 4:22pm Advance Directive Response Recorded Date/ Time Living Will No July 08, 2023 8:16am Power of Egg Buyer No July 08 8:16am Advance Directive Response Recorded Date/ Time Name of Medical Power of Egg Buyer ABHISHEK SANDERS July 24, 2023 11:19pm Living Will No July 24 11:19pm Power of Egg Buyer Yes July 24, 023 11:19pm Advance Directive Response Recorded Date/ Time Name of Medical Power of Egg Buyer sister July 25, 2023 3:01am Living Will Yes July 25 3:01am Power of Egg Buyer Yes July 25, 023 3:01am Advance Directive Response Recorded Date/ Time Name of Medical Power of Egg Buyer sister July 25, 2023 3:01am Living Will No August 17, 2023 10:41pm Power of Egg Buyer No July 10:41pm Advance Directive Response Recorded Date/ Time Name of Medical Power of Egg Buyer sister July 25, 2023 3:01am Name of Medical Power of Egg Buyer maggie kunz August 18, 2023 1:42am Living Will Yes August 18, 2023 1:42am Power of Egg Buyer Yes July 1:42am Living Will - Effective [...] April 04, 2024 9: 15pm Power of Egg Buyer Yes April 04, 2024 9:15pm Name of Medical Power of Egg Buyer sister April 04, 2024 9:15pm Living Will [...] Date/ Time Name of Medical Power of Egg Buyer maggie kunz April 04, 2024 11:38pm Living Will Yes April 04, 2024 11 :38pm Power of Egg Buyer Yes April 04, 2024 11:38pm Living Will [...] sent through Care Everywhere. * Flank Pain (Hebrew) * Back: Strain (Hebrew) documented in this encounter Assessments Diagnosis Flank pain Abdominal pain, unspecified site Reason for Referral Status Reason Specialty Diagnoses / Procedures Referred By Contact Referred To Contact Closed Cardiovascular Medicine Diagnoses Exertional shortness of breath Procedures ECHOCARDIOGRAM NC ECHO HEART XTHORACIC,COMPLETE W DOPPLER Alondra Crews, RAYNE [address] [place] [address] Prabhakar Ont Echocardiograph y [address] [place] [address] Status Reason Specialty Diagnoses / Procedures Re ferred By Contact Referred To Contact New Request Procedures INPATIENT ADMISSION NOTIFICATION Guilherme Naranjo, DO [address] [place] [address] Status Reason Specialty Diagnoses / Procedures Referred By Contact Referred To Contact New Request Procedures ECG Nawaf Dalton MD [address] [place] [address] Status Reason Specialty Diagnoses / Procedures Referred By Contact Referred To Contact Open Specialty Services Required IP Unit Diagnoses Pressure injury of right buttock, stage 3 (HCC) Ach 5n Overflow [address] [place] [address] [facility] [address] [place] [address] Scheduling Instructions [facility] [address] [place] [address] Specialty Diagnoses / Procedures Referred By Contac t Referred To Contact Ultrasound Diagnoses Muscle swelling Nodule of soft tissue Procedures US SOFT TISSUE Alondra Crews PA-C [address] [place] [address] Prabhakar [facility] Ultrasound [address] [place] [address] Referral ID Status Reason Start Date Expiration Date Visits Re quested Visits Authorized [id number] Closed 02/21/2022 03/18/2023 1 1 Chief Complaint [...] section and content) DATE CREATED AUTHOR 05/20/2018 [facility] DATE CREATED AUTHOR AUTHOR'S ORGANIZ ATION 05/19/2021 [facility] DATE CREATED AUTHOR AUTHOR'S ORGANIZ ATION 08/12/2021 [facility] DATE CREATED AUTHOR AUTHOR'S ORGANIZ ATION 03/01/2022 [facility]ital DATE CREATED AUTHOR AUTHOR'S ORGANIZ ATION 02/04/2023 [facility] DATE CREATED AUTHOR AUTHOR'S ORGANIZ ATION 09/08/2023 [facility] DATE CREATED AUTHOR AUTHOR'S ORGANIZ ATION 10/11/2023 [facility] DATE CREATED AUTHOR AUTHOR'S ORGANIZ ATION 07/26/2024 [facility] DATE CREATED AUTHOR AUTHOR'S ORGANIZ ATION 11/16/2024 [facility] DATE CREATED AUTHOR AUTHOR'S ORGANIZ ATION [facility] Reason for Visit (unrecogniz ed section and content) Reason Comments Abdominal Pain x4 days left lower q uadrant, gallbadder removed, no pain medication helping, last BM today, pt passing gas Status Reason Specialty Diagnoses / Procedures Referred By Contact Referred To Contact Closed Cardiovascular Medicine Diagnoses Exertional shortness of breath Procedures ECHOCARDIOGRAM NC ECHO HEART XTHORACIC,COMPLETE W DOPPLER Alondra Crews PA-C [address] [place] [address] Prabhakar Ont Echocardiograph y [address] [place] [address] Reason Comments COVID-19 per EMS, pt c/o covi d symptoms, cough and SOB. pt spouse (+) COVID Status Reason Specialty Diagnoses / Procedures Referre d By Contact Referred To Contact Reason Comments Specialty Diagnoses / Procedures Referred By Contac t Referred To Contact Ultrasound Diagnoses Muscle swelling Nodule of soft tissue Procedures US SOFT TISSUE Alondra Crews PA-C [address] [place] [address] Prabhakar [facility]tras[facility] [address] [place] [address] Referral ID Status Reason Start Date Expiration Date Visits Re quested Visits Authorized [id number] Closed 02/21/2022 03/18/2023 1 1 Reason Comments Follow-up Recurrent cellulitis (est pt, new to Dr. Tavera) Specialty Diagnoses / Procedures Referred By Contruben t Referred To Contact Infectious Diseases Diagnoses Recurrent cellulitis; pt was started on amox daily for suppression Procedures NC OFFICE/OUTPATIENT NEW MODERATE MDM 45-59 MINUTES Alondra Crews PA-C [address] [place] [address] [facility] [address] [place] [address] Referral ID Status Reason Start Date Expiration Date Visits Re quested Visits Authorized [id number] Closed 08/28/2023 08/28/2024 1 1 Scheduled Active [...] Scottie Cloud RN) 0824 (Given - Provider: aMndy Mckenna RN) ascorbic acid (VITAMIN C) tablet [...] over 30 Minutes, ONCE, 1 dose, On [place] 06/02/21 at 1700, After infusion complete, flush tubing with 30mL NS at same rate as infusion. 1740 ($$New Bag$$ - Provider: Nikia Vines RN) sodium chloride 0.9% IV solution 75 mL (COMPLETED) 75 mL, Intravenous, ONCE, 1 dose, On [place] 06/02/21 at 1230, Radiology Procedure 1218 ($$New [...] Sandra Nguyen RN) 0827 (Given - Provider: Nragis Bhat RN)2100 (Due) ferrous sulfate (IRON 325) [...] Provider: Carrie Cardenas)1706 (Given - Provider: Carrie Cardeans) 0844 (Given - Provider: Katherine Jha RCP)1600 [...] 1045 0900 (Due)2116 (Given - Provider: Adry Roa RN) 0953 (Given - Provider: Nargis Bhat [...] Lara MD Emergency Provider Active Dr. Adrianna eMjia DO Admit Provider, Attending Provide r, Other [...] DO Admit Provider, Attending Provide r Active Software Maintenance Engineer Relationship Specialty Start Date End Date CrewsAlondra PA-C [address] [place] [address] PCP - General Physician Box Spinner 04/05/21 Team Status: Inactive Member Role Status [...] Huggins MD Attending Provider Activ e Dr. Betty Calvin MD Referring Provider Active Team Status: [...] Dr. Wander Garcia MD Other Provider Active Software Maintenance Engineer Relationship Specialty Start Date End Date MarsAlondra PA-C [address] [place] [address] [place] [address] PCP - General Physician Box Spinner 09/04/23 Team Status: Active Member Role Status [...] Dr. Wander Garcia MD Other Provider Active Software Maintenance Engineer Relationship Specialty Start Date End Date Alondra Crews PA-C [address] [place] [address] PCP - General Physician Box Spinner 11/11/24 Goals (unrecognized section and content) Goals [...] BE BASED ON THE PRIMARY CLINICAL RECORDS. [employer] provides no warranty or guarantee of the accuracy or completeness of information in this document.
[2025-06-11 04:12] LABS: Reflex Lactate? Y
[2025-06-11 04:21] LABS: FI02 2.0; SITE Not entered; VBG BASE EXCESS 2 mmol/L (-1.0-3.5); VBG PO2 39 mmHg (25-40); VBG SO2 74 % (50-70); VBG TCO2 28 mmol/L (23-33)
--- NOTE | 2025-06-11 04:30 | CPS ---
[0359] Pt. hyperventilating at this time. Breath sounds are clear and diminished.
--- OUTSIDE RECORDS SUMMARY | 2025-06-11 04:33 | XMS RPT_ITS | CCD ---
Author Organization [facility] Care Team Providers Care Mainspring Reverse Winder Name Role Phone Unavailable Unavailable Unavailable ConnGenetFanta [...] Provider Dr. Mandy Arce Emergency Provider [phone] Arthur Thompson Admit Provider Dr. Arthur Thompson Referring Provider Dr. Arthur Thompson Other Provider Dr. Calderon Ware Attending Provider Unavailable Dr. Calderon Ware Other Provider Unavailable Mars PA-C, Alondra A Primary Care Provider HELDER TAVERA Attending Unavailable CREWS, ALONDRA Referring Unavailable CREWS, ALONDRA Primary Care Unavailable Khaitan, Dr. Null Attending Unavailable Khaitan, Dr. Null Referring Unavailable UNKNOWN, PCP Primary Care Unavailable Khaitan, Dr. Null Attending Unavailable Khaitan, Dr. Null Referring Unavailable UNKNOWN, PCP Primary Care Unavailable Crews PA-C, Alondra J Unavailable Crews PA-C, Alondra J Unavailable [phone] Infectious Disease Provider Unavailable Unav ailable Cardiology Provider Unavailable Unavailable Minerva OCCUPANCY SPECIALIST, Nora Unavailable Unavaila ble Rodney OCCUPANCY SPECIALIST, Ashley Unavailable Unavailable Eloy OCCUPANCY SPECIALIST, Carlo Unavailable Unavailable Frank OCCUPANCY SPECIALIST, Jazlyn M Unavailable Unavailab le Brian MA, Ashley Unavailable Unavailable Zaugg OCCUPANCY SPECIALIST, Cadence Unavailable Unavailable Unavailable Unavailable Suarez OCCUPANCY SPECIALIST, Ceci Unavailable Unavailabl e Mars ZABALA PA Alondra Primary Care Provider Dr. Gian Villanueva Emergency Provider Dr. Calderon Ojeda Admit Provider Unavailabl e Dr. Calderon Ojeda Other Provider Unavailanna e Dr. Rubin Hadley Attending Provider Dr. Rubin Hadley Other Provider Dr. Antoni Osman Attending Provider [phone] Wander Garcia Other Provider Dermatology [...] Consulting Unavailable Antoni Abdul Consulting Unavailable Betty Calivn Referring Unavailable Humberto Huggins Attending UnavailRod ZABALA, [...] Primary Care Unavailable Arthur Thompson Admitting Unavailable Caldeorn Ware Attending Unavailable Wander Garcia Consulting Unavailable Calderon Ware Consulting Unavailable Calderon Ojeda Attending Unavailable Calderon Ojeda Attending Unavailable Mars MCLAIN, Alondra J Primary Care Provider [phone] ALONDRA CREWS Admitting Unavailable YAMILE SMALLWOOD Attending Unavailanna gutierrez PROVIDER, [facility] Referring UnavailALONDRA Quinn Primary Care Unavailable YAMILE SMALLWOOD Attending UnavailALONDRA Quinn Primary Care Unavailable [facility], Rosa Unavailable Allergies Allergy Classification Reported Allergen(s) Allergy Type Date of Onset Reaction(s) Facility (1 source) Adhesive Tape Drug allergy (disorder) 04-04-2024 [facility] Repository Medications Current Medications Medication Drug [...] 06-02-2021 acetaminophen (TYLENOL) tabl et 650 mg [id number] 200 actuat albuterol 0.09 mg/actuat metered dose [...] mg) docusate sodium 50 mg / sennosides, alf 8.6 mg oral tablet (2 sources) Start: [...] 1 tablet by mouth daily. 0 Active mihsziaczdwq-Tj-txxo-mi nerals Tab (1 source) take 1 tablet by mouth once daily feuqkkonhcxb-Ci-nllw-m inerals Tab Take 1 tablet by mouth daily . Active nystatin 100 unt/mg topical powder (20 sources) Polyene Antifungal Start: 07-31-20 Nystatin (Nyamyc) 100,000 unit/gram Powder Active 1 APPLIC TOPICAL TWICE A DAY July 31, 2023 12:00am Start: 08-01-2021 End: 07-24-2023 Nystatin (Nyamyc) 100,000 un it/gram powder Discontinued 1 APPLIC TOPICAL BID@0600,2200 August 06, 2021 12:56pm July 24, 2023 11:29pm Nystatin [id number] UNIT/GM External Ointment ; bid ([id number] UNIT/GM) Status: Inactive pantoprazole 20 mg delayed [...] 07-03-2021 Start: 06-25-2021 take 1 spray(s) by [facility] every two hours as needed 1 [...] with Zinc) tablet 1 tablet bacillus coagulans [id number] unt / lactobacillus acidophilus [id number] unt oral tablet (1 source) End: 07-03-2021 [...] sources) Long-term current use of antibiotic; 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 Date of Admission: 07/25/2023. Date of [...] getting them on.Did see lymphedema clinic in [place]. 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 on 06/27/21.Has chronic low back pain, hip pain, and knee pain - sees ortho in [place] for management of this; has received injections [...] still heavy - never scheduled appt with [facility] TEACHER.Had a colonoscopy a few years ago - [...] from hospital stay - Name of Hospital: [facility]. Date of Admission: 07/25/2023. Date of [...] from hospital stay - Name of Hospital: [facility]. Date of Admission: 08/18/2023. Date of [...] from hospital stay - Name of Hospital: [facility]. Date of Admission: 07/08/2023. Date of [...] today.No fever.Did meet with bariatric surgery in [place] - has to get down to 420 /BMI 70 - prior to having the surgery. Working with dieticians. 02-06-2023 Unclassified (20 sources) form to fill out - Patient is here today to complete form for bariatric surgery - needs an OV within the past 30 days.Has symptoms of carpal tunnel - hands are falling asleep all the time. 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 [...] back. Note for Consultation follow-up: Going to [place] wound clinic every week - has appt w them tomorrow.Was evaluated by OT/PT ([facility]) but hasn't found out if she would be eligible for services.Nurse is coming 3 times per week.Has f/u appt with Dr. Keys ([facility]) 09/24 - is to have [...] back. Note for Consultation follow-up: Going to [place] wound clinic every week - has appt w them tomorrow.Was evaluated by OT/PT ([facility]) but hasn't found out if she would be eligible for services.Nurse is coming 3 times per week.Has f/u appt with Dr. Keys ([facility]) 09/24 - is to have [...] from hospital stay - Name of Hospital: [facility]. Date of Admission: 07/08/2023. Date of [...] from hospital stay - Name of Hospital: [facility]. Date of Admission: 08/18/2023. Date of [...] from hospital stay - Name of Hospital: [facility]. Date of Admission: 04/04/24. The patient was hospitalized for cellulitis . New medications include ATB-cefdinir (Often forgets to take afternoon dose). Patient was discharged to home. Note for Follow up from hospital stay: Pt states healing, skin currently peeling. No f/u with infectious disease scheduled. 04-15-2024 Unclassified (6 sources) Follow up from hospital stay - Name of Hospital: [facility]. Date of Admission: 04/04/24. The patient was hospitalized for cellulitis . New medications include ATB-cefdinir (Often forgets to take afternoon dose). Patient was discharged to home. Note for Follow up from hospital stay: Pt states healing, skin currently peeling. No f/u with infectious disease scheduled. 04-15-2024 Unclassified (14 sources) Follow up from hospital stay - Name of Hospital: [facility]. Date of Admission: 05/04/2024. Date of [...] from hospital stay - Name of Hospital: [facility]. Date of Admission: 05/04/2024. Date of [...] indicated. For additional information, please refer to http://education.ITelagen.MyCadbox/faq/NGY650 (This link is being provided for informational/ educational purposes only.) Performed By: #### 2 49, 6399, 7832, 4942, 375, 5810, 41293, 21786, 4420, 96233, 351, %06856, 809, 353, 905 #### [facility] [address], [address] [place] [address] Informatics Spec: Lc Masters MD #### [id number] #### [facility], [address] [place] [address] Informatics Spec: Yuki Paul MD,PhD,NEPTALI ANTINUCLEAR ANTIBODIES TITER AND PATTERNon 11-16-2024 LIZ PATTERN Nuclear, Homogeneous Abnormal [facility] Comment on above: Result Comment: Homo geneous pattern is associated with systemic lupus erythematosus (SLE), drug-induced lupus and juvenile idiopathic arthritis. AC-1: Homogeneous International Consensus on LIZ Patterns (https://doi.org/10.1515/rtof-1353-4256) Performed By: #### 2 49, 6399, 7832, 4942, 375, 5810, 47788, 44902, 4420, 62493, 351, %45604, 809, 353, 905 #### [facility] [address], [address] [place] [address] Informatics Spec: Lc Masters MD #### [id number] #### [facility], [address] [place] [address] Informatics Spec: Yuki Paul MD,PhD,NEPTALI LIZ PATTERN Nuclear, Speckled Abnormal [facility] Comment on above: Result Comment: Spec kled pattern is associated with mixed connective tissue disease (MCTD), systemic lupus erythematosus (SLE), Sjogren's syndrome, dermatomyositis, and systemic sclerosis/polymyositis overlap. AC-2,4,5,29: Speckled International Consensus on LIZ Patterns (https://doi.org/10.1515/ixro-0977-5886) Performed By: #### 2 49, 6399, 7832, 4942, 375, 5810, 25940, 46253, 4420, 64384, 351, %60803, 809, 353, 905 #### [facility] [address] , [address] [place] [address] Informatics Spec: Lc Masters MD #### [id number] #### [facility], [address] [place], [place] Informatics Spec: Yuki Paul MD,PhD,NEPTALI LIZ TITER 1:160 High [facility] Comment on above: Result Comment: Refe rence Range <1:40 Negative 1:40-1:80 Low Antibody Level >1:80 Elevated Antibody Level Performed By: #### 2 49, 6399, 7832, 4942, 375, 5810, 86159, 57729, 4420, 13622, 351, %35317, 809, 353, 905 #### [facility] [address], [address] [place] [address] Informatics Spec: Lc Masters MD #### [id number] #### [facility], [address] [place], [place] Informatics Spec: Yuki Paul MD,PhD,NEPTALI C-REACTIVE PROTEINon 024 CRP [Mass/Vol] 33.1 mg/L High <8.0 [facility] Comment on above: Performed By: #### 2 49, 6399, 7832, 4942, 375, 5810, 73734, 49008, 4420, 27918, 351, %22213, 809, 353, 905 #### [facility] [address], [address] [place] [address] Informatics Spec: Lc Masters MD #### [id number] #### [facility], [address] [place], [place] Informatics Spec: Yuki Paul MD,PhD,NEPTALI CBC (INCLUDES DIFF/PLT)on Basophils (Bld) [#/Vol] 0.013 10*3/uL Normal 0-200 [facility] Comment on above: Performed By: #### 2 49, 6399, 7832, 4942, 375, 5810, 98958, 62201, 4420, 27524, 351, %06071, 809, 353, 905 #### [facility] [place] [address] Informatics Spec: Lc Masters MD #### [id number] #### [facility], [address] [place], [place] [address] Informatics Spec: Yuki Paul MD,PhD,NEPTALI Basophils/100 WBC (Bld) 0.2 % Normal [facility] Comment on above: Performed By: #### 2 49, 6399, 7832, 4942, 375, 5810, 85656, 24126, 4420, 01753, 351, %91207, 809, 353, 905 #### [facility] [place] [address] Informatics Spec: Lc Masters MD #### [id number] #### [facility], [address] [place], [place] [address] Informatics Spec: Yuki Paul MD,PhD,NEPTALI Eosinophils (Bld) [#/Vol] 0 10*3/uL Low 15-500 [facility] Comment on above: Performed By: #### 2 49, 6399, 7832, 4942, 375, 5810, 12735, 66302, 4420, 52251, 351, %79856, 809, 353, 905 #### [facility] of [place] [address] Informatics Spec: Lc Masters MD #### [id number] #### [facility], [address] [place] [address] Informatics Spec: Yuki Paul MD,PhD,NEPTAIL Eosinophils/100 WBC (Bld) 0.0 % Normal [facility] Comment on above: Performed By: #### 2 49, 6399, 7832, 4942, 375, 5810, 26496, 50140, 4420, 29760, 351, %47649, 809, 353, 905 #### [facility] [place] [address] Informatics Spec: Lc Masters MD #### [id number] #### [facility], [address] [place] [address] Informatics Spec: Yuki Paul MD,PhD,NEPTALI Erythrocyte distribution width (RBC) [Ratio] 14.2 % Normal 11.0-15.0 [facility] Comment on above: Performed By: #### 2 49, 6399, 7832, 4942, 375, 5810, 15309, 66468, 4420, 48988, 351, %88454, 809, 353, 905 #### [facility] [place] [address] Informatics Spec: Lc Masters MD #### [id number] #### [facility]/[address] [address] Informatics Spec: Yuki Paul MD,PhD,NEPTALI Hematocrit (Bld) [Volume fraction] 41.1 % Normal 35.0-45.0 [facility] Comment on above: Performed By: #### 2 49, 6399, 7832, 4942, 375, 5810, 95516, 48433, 4420, 69179, 351, %44399, 809, 353, 905 #### [facility] [place] [address] Informatics Spec: Lc Masters MD #### [id number] #### [facility]/[address] [address] Informatics Spec: Yuki Paul MD,PhD,NEPTALI Hemoglobin (Bld) [Mass/Vol] 13.0 g/dL Normal 11.7-15.5 [facility] Comment on above: Performed By: #### 2 49, 6399, 7832, 4942, 375, 5810, 34209, 72834, 4420, 44480, 351, %65142, 809, 353, 905 #### [facility] [place] [address] Informatics Spec: Lc Masters MD #### [id number] #### [facility], [address] [place], [place] [address] Informatics Spec: Yuki Paul MD,PhD,NEPTALI Lymphocytes (Bld) [#/Vol] 1.133 10*3/uL Normal 850-3900 [facility] Comment on above: Performed By: #### 2 49, 6399, 7832, 4942, 375, 5810, 26103, 14091, 4420, 60132, 351, %62242, 809, 353, 905 #### [facility] [place] [address] Informatics Spec: Lc Masters MD #### [id number] #### [facility], [address] [place], [place] [address] Informatics Spec: Yuki Paul MD,PhD,NEPTALI Lymphocytes/100 WBC (Bld) 17.7 % Normal [facility] Comment on above: Performed By: #### 2 49, 6399, 7832, 4942, 375, 5810, 65420, 76715, 4420, 71392, 351, %11460, 809, 353, 905 #### [facility] [place] [address] Informatics Spec: Lc Masters MD #### [id number] #### [facility], [facility] [place] [id number] Informatics Spec: Yuki Paul MD,PhD,NEPTALI MCH (RBC) [Entitic mass] 26.6 pg Low 27.0-33.0 [facility] Comment on above: Performed By: #### 2 49, 6399, 7832, 4942, 375, 5810, 83067, 50096, 4420, 55148, 351, %19273, 809, 353, 905 #### [facility] [address] Informatics Spec: Lc Masters MD #### [id number] #### [facility], [address] [place] [address] Informatics Spec: Yuki Paul MD,PhD,NEPTALI MCHC (RBC) [Mass/Vol] 31.6 g/dL Low 32.0-36.[address] [facility] [address] [facility] Comment on above: Result Comment: For adults, a slight decrease in the calculated MCHC value (in the range of 30 to 32 g/dL) is most likely not clinically significant; however, it should be interpreted with caution in correlation with other red cell parameters and the patient's clinical condition. Performed By: #### 2 49, 6399, 7832, 4942, 375, 5810, 70798, 01725, 4420, 92287, 351, %11683, 809, 353, 905 #### [facility] [place] [address] Informatics Spec: Lc Masters MD #### [id number] #### [facility]/[address] [address] Informatics Spec: Yuki Paul MD,PhD,NEPTALI MCV (RBC) [Entitic vol] 84.0 fL Normal 80.0-100.0 [facility] Comment on above: Performed By: #### 2 49, 6399, 7832, 4942, 375, 5810, 56649, 25247, 4420, 60492, 351, %32235, 809, 353, 905 #### [place] [address] Informatics Spec: Lc Masters MD #### [id number] #### [facility], [address] [place], [place] [address] Informatics Spec: Yuki Paul MD,PhD,NEPTALI Monocytes (Bld) [#/Vol] 0.41 10*3/uL Normal 200-950 [facility] Comment on above: Performed By: #### 2 49, 6399, 7832, 4942, 375, 5810, 16744, 68447, 4420, 07013, 351, %86246, 809, 353, 905 #### [facility] [place] [address] Informatics Spec: Lc Masters MD #### [id number] #### [facility], [address] [place], [place] [address] Informatics Spec: Yuki Paul MD,PhD,NEPTALI Monocytes/100 WBC (Bld) 6.4 % Normal [facility] Comment on above: Performed By: #### 2 49, 6399, 7832, 4942, 375, 5810, 20486, 82333, 4420, 09281, 351, %94718, 809, 353, 905 #### [facility] [address], [address] [place] [address] Informatics Spec: Lc Masters MD #### [id number] #### [facility], [facility] [place] [address] Informatics Spec: Yuki Paul MD,PhD,NEPTALI Neutrophils (Bld) [#/Vol] 4.845 10*3/uL Normal 2552-6602 [facility] Comment on above: Performed By: #### 2 49, 6399, 7832, 4942, 375, 5810, 45159, 70298, 4420, 63675, 351, %55191, 809, 353, 905 #### [facility] [address], [address] [place] [address] Informatics Spec: Lc Masters MD #### [id number] #### [facility], [address] [place] [id number] Informatics Spec: Yuki Paul MD,PhD,NEPTALI Neutrophils/100 WBC (Bld) 75.7 % Normal [facility] Comment on above: Performed By: #### 2 49, 6399, 7832, 4942, 375, 5810, 45527, 18925, 4420, 04934, 351, %16455, 809, 353, 905 #### [facility] [place] [address] Informatics Spec: Lc Masters MD #### [id number] #### [facility], [address] [place] [id number] Informatics Spec: Yuki Paul MD,PhD,NEPTALI Platelet mean volume (Bld) [Entitic vol] 10.0 fL Normal 7.5-12.5 [facility] Comment on above: Performed By: #### 2 49, 6399, 7832, 4942, 375, 5810, 34260, 13053, 4420, 82896, 351, %00685, 809, 353, 905 #### [facility] [address], [address] [place] [address] Informatics Spec: Lc Masters MD #### [id number] #### [facility], [address] [place], [place] Informatics Spec: Yuki Paul MD,PhD,NEPTALI Platelets (Bld) [#/Vol] 229 10*3/uL Normal 140-400 [facility] Comment on above: Performed By: #### 2 49, 6399, 7832, 4942, 375, 5810, 64689, 39148, 4420, 00129, 351, %49635, 809, 353, 905 #### [facility] [address], [address] [place] [address] Informatics Spec: Lc Masters MD #### [id number] #### [facility], [address] [place] [address] Informatics Spec: Yuki Paul MD,PhD,NEPTALI RBC (Bld) [#/Vol] 4.89 10*6/uL Normal 3.80-5.10 [facility] Comment on above: Performed By: #### 2 49, 6399, 7832, 4942, 375, 5810, 16932, 64032, 4420, 94339, 351, %34255, 809, 353, 905 #### [facility] [address], [address] [place] [address] Informatics Spec: Lc Masters MD #### [id number] #### [facility], [address] [place] [address] Informatics Spec: Yuki Paul MD,PhD,NEPTALI WBC (Bld) [#/Vol] 6.4 10*3/uL Normal 3.8-10.8 [facility] Comment on above: Performed By: #### 2 49, 6399, 7832, 4942, 375, 5810, 00893, 38856, 4420, 25751, 351, %80526, 809, 353, 905 #### [facility] [place] [address], [address] [place] [address] Informatics Spec: Lc Masters MD #### [id number] #### [facility], [address] [place] [address] Informatics Spec: Yuki Paul MD,PhD,NEPTALI CHROMATIN (NUCLEOSOMAL) ANTI BODYon 11-16-2024 CHROMATIN (NUCLEOSOMAL) ANTIBODY <1.0 NEG Normal <1.0 NEG [facility] Comment on above: Performed By: #### 2 49, 6399, 7832, 4942, 375, 5810, 32039, 77415, 4420, 34815, 351, %59441, 809, 353, 905 #### [facility] [place] [address], [address] [place] [address] Informatics Spec: Lc Masters MD #### [id number] #### [facility], [facility] [place] Informatics Spec: Yuki Paul MD,PhD,NEPTALI COMPLEMENT COMPONENT C3Con 1 01-17-2024 COMPLEMENT COMPONENT C3C 181 mg/dL Normal 83-193 [facility] Comment on above: Performed By: #### 2 49, 6399, 7832, 4942, 375, 5810, 86992, 11995, 4420, 02565, 351, %99116, 809, 353, 905 #### [facility] [address], [address] [place] [address] Informatics Spec: Lc Masters MD #### [id number] #### [facility], [address] [place], [place] Informatics Spec: Yuki Paul MD,PhD,NEPTALI COMPLEMENT COMPONENT C4Con 1 01-17-2024 COMPLEMENT COMPONENT C4C 27 mg/dL Normal 15-57 [facility] Comment on above: Performed By: #### 2 49, 6399, 7832, 4942, 375, 5810, 49404, 82905, 4420, 26394, 351, %80719, 809, 353, 905 #### [facility] [address], [address] [place] [address] Informatics Spec: Lc Masters MD #### [id number] #### [facility], [address] [place], [place] Informatics Spec: Yuki Paul MD,PhD,NEPTALI CREATININEon 11-16-2024 Creatinine [Mass/Vol] 0.81 mg/dL Normal 0.50-1.[address] [facility] [address] [facility] Comment on above: Order Comment: FASTI NG:YES FASTING: YES Performed By: #### 2 49, 6399, 7832, 4942, 375, 5810, 93337, 36595, 4420, 37648, 351, %10257, 809, 353, 905 #### [place] [address] Informatics Spec: Lc Masters MD #### [id number] #### [facility], [address] [place] [address] Informatics Spec: Yuki Paul MD,PhD,NEPTALI GFR/1.73 sq M.predicted among non-blacks MDRD (S/P/Bld) [Vol rate/Area] 85 mL/min/{1.73_m2} Normal > OR = 60 [facility] Comment on above: Order Comment: FASTI NG:YES FASTING: YES Performed By: #### 2 49, 6399, 7832, 4942, 375, 5810, 93130, 27686, 4420, 37886, 351, %07351, 809, 353, 905 #### [place] [address] Informatics Spec: Lc Masters MD #### [id number] #### [facility], [address] [place] [address] Informatics Spec: Yuki Paul MD,PhD,NEPTALI DNA (DS) ANTIBODY, CRITHIDIA , IFA W/REFLon 11-16-2024 DNA AB (DS) CRITHIDIA,IFA Negative Normal NEGATIVE [facility] Comment on above: Performed By: #### 2 49, 6399, 7832, 4942, 375, 5810, 56750, 65101, 4420, 53478, 351, %40562, 809, 353, 905 #### [facility] [place] [address] Informatics Spec: Lc Masters MD #### [id number] #### [facility], [address] [place] [address] Informatics Spec: Yuki Paul MD,PhD,NEPTALI HEPATIC FUNCTION PANELon Albumin [Mass/Vol] 4.3 g/dL Normal 3.6-5.1 [facility] Comment on above: Performed By: #### 2 49, 6399, 7832, 4942, 375, 5810, 77024, 10470, 4420, 82153, 351, %25032, 809, 353, 905 #### [facility] [place] [address] Informatics Spec: Lc Masters MD #### [id number] #### [facility], [address] [place] [address] Informatics Spec: Yuki Paul MD,PhD,NEPTALI Albumin/Globulin [Mass ratio] 1.3 {ratio} Normal 1.0-2.5 [facility] Comment on above: Performed By: #### 2 49, 6399, 7832, 4942, 375, 5810, 36412, 98843, 4420, 55969, 351, %34792, 809, 353, 905 #### [facility] [place] [address] Informatics Spec: Lc Masters MD #### [id number] #### [facility], [address] [place] [address] Informatics Spec: Yuki Paul MD,PhD,NEPTALI ALP [Catalytic activity/Vol] 76 U/L Normal 37-153 [facility] Comment on above: Performed By: #### 2 49, 6399, 7832, 4942, 375, 5810, 72088, 43942, 4420, 15861, 351, %77529, 809, 353, 905 #### [facility] [address], [address] [place] [address] Informatics Spec: Lc Masters MD #### [id number] #### [facility], [address] [place] [address] Informatics Spec: Yuki Paul MD,PhD,NEPTALI ALT [Catalytic activity/Vol] 18 U/L Normal 6-29 [facility] Comment on above: Performed By: #### 2 49, 6399, 7832, 4942, 375, 5810, 66286, 87957, 4420, 09360, 351, %62036, 809, 353, 905 #### [facility] [address], [address] [place] [address] Informatics Spec: Lc Masters MD #### [id number] #### [facility], [facility] [place] [address] Informatics Spec: Yuki Paul MD,PhD,NEPTALI AST [Catalytic activity/Vol] 18 U/L Normal 10-35 [facility] Comment on above: Performed By: #### 2 49, 6399, 7832, 4942, 375, 5810, 63639, 10153, 4420, 44024, 351, %17388, 809, 353, 905 #### [facility] of [address], [address] [place] [address] Informatics Spec: Lc Masters MD #### [id number] #### [facility], [address] [place] [address] Informatics Spec: Yuki Paul MD,PhD,NEPTALI Bilirubin [Mass/Vol] 0.5 mg/dL Normal 0.2-1.2 [facility] Comment on above: Performed By: #### 2 49, 6399, 7832, 4942, 375, 5810, 48125, 00394, 4420, 00207, 351, %76516, 809, 353, 905 #### [facility] [place] [address] Informatics Spec: Lc Masters MD #### [id number] #### [facility], [address] [place], [place] [address] Informatics Spec: Yuki Paul MD,PhD,NEPTALI BILIRUBIN, INDIRECT 0.4 mg/dL (calc) Normal 0.2-1.2 [facility] Comment on above: Performed By: #### 2 49, 6399, 7832, 4942, 375, 5810, 43626, 15092, 4420, 99576, 351, %32963, 809, 353, 905 #### [facility] [place] [address] Informatics Spec: Lc Masters MD #### [id number] #### [facility], [facility] [place] [id number] Informatics Spec: Yuki Paul MD,PhD,NEPTALI Bilirubin.indirect [Mass/Vol] 0.1 mg/dL Normal < OR = 0.2 [facility] Comment on above: Performed By: #### 2 49, 6399, 7832, 4942, 375, 5810, 43859, 66381, 4420, 61178, 351, %07060, 809, 353, 905 #### [facility] [place] [address] Informatics Spec: Lc Masters MD #### [id number] #### [facility], [facility] [place] [address] Informatics Spec: Yuki Paul MD,PhD,NEPTALI Globulin (S) [Mass/Vol] 3.2 g/dL Normal 1.9-3.7 [facility] Comment on above: Performed By: #### 2 49, 6399, 7832, 4942, 375, 5810, 50368, 37920, 4420, 63457, 351, %17356, 809, 353, 905 #### [facility] [address], [address] [place] [address] Informatics Spec: Lc Masters MD #### [id number] #### [facility], [address] [place] Informatics Spec: Yuki Paul MD,PhD,NEPTALI Protein [Mass/Vol] 7.5 g/dL Normal 6.1-8.1 [facility] Comment on above: Performed By: #### 2 49, 6399, 7832, 4942, 375, 5810, 41829, 85848, 4420, 96309, 351, %99301, 809, 353, 905 #### [facility] [address], [address] [place] [address] Informatics Spec: Lc Masters MD #### [id number] #### [facility], [address] [place] Informatics Spec: Yuki Paul MD,PhD,NEPTALI NEYDA-1 ANTIBODYon 11-16-2024 NEYDA-1 ANTIBODY <1.0 NEG Normal <1.0 NEG [facility] Comment on above: Performed By: #### 2 49, 6399, 7832, 4942, 375, 5810, 07281, 38977, 4420, 49709, 351, %48099, 809, 353, 905 #### [facility] [place] [address] Informatics Spec: Lc Masters MD #### [id number] #### [facility], [address] [place] Informatics Spec: Yuki Paul MD,PhD,NEPTALI SCL-70 ANTIBODYon 11-16-2024 SCL-70 ANTIBODY <1.0 NEG Normal <1.0 NEG [facility] Comment on above: Performed By: #### 2 49, 6399, 7832, 4942, 375, 5810, 79662, 51367, 4420, 26705, 351, %63376, 809, 353, 905 #### [facility] [address] [facility], [address] [place] [address] Informatics Spec: Lc Masters MD #### [id number] #### [facility], [address] [place] [address] Informatics Spec: Yuki Paul MD,PhD,NEPTALI SED RATE BY MODIFIED WESTERG RENon 11-16-2024 SED RATE BY MODIFIED WESTERGREN 33 mm/h High < OR = 30 [facility] Comment on above: Performed By: #### 2 49, 6399, 7832, 4942, 375, 5810, 19596, 24858, 4420, 34812, 351, %97030, 809, 353, 905 #### [facility] [address] [facility], [address] [place] [address] Informatics Spec: Lc Masters MD #### [id number] #### [facility], [address] [place] [address] Informatics Spec: Yuki Paul MD,PhD,NEPTALI SJOGREN'S ANTIBODIES (SS-A,S S-B)on 11-16-2024 SJOGREN'S ANTIBODY (SS-A) <1.0 NEG Normal <1.0 NEG [facility] Comment on above: Performed By: #### 2 49, 6399, 7832, 4942, 375, 5810, 64547, 52057, 4420, 97613, 351, %49963, 809, 353, 905 #### [facility] [address] [place] , [address] [place] [address] Informatics Spec: Lc Masters MD #### [id number] #### [facility], [address] [place] [address] Informatics Spec: Yuki Paul MD,PhD,NEPTALI SJOGREN'S ANTIBODY (SS-B) <1.0 NEG Normal <1.0 NEG [facility] Comment on above: Performed By: #### 2 49, 6399, 7832, 4942, 375, 5810, 98692, 88551, 4420, 25885, 351, %67277, 809, 353, 905 #### [facility] [address], [address] [place] [address] Informatics Spec: Lc Masters MD #### [id number] #### [facility], [address] [place] [address] Informatics Spec: Yuki Paul MD,PhD,NEPTALI SM/AUTO DAMAGE ESTIMATOR ANTIBODYon 11-16-2024 SM/AUTO DAMAGE ESTIMATOR ANTIBODY <1.0 NEG Normal <1.0 NEG [facility] Comment on above: Performed By: #### 2 49, 6399, 7832, 4942, 375, 5810, 24899, 52187, 4420, 38167, 351, %86089, 809, 353, 905 #### [facility] [address], [address] [place], [place] [address] Informatics Spec: Lc Masters MD #### [id number] #### [facility], [address] [place], [place] Informatics Spec: Yuki Paul MD,PhD,NEPTALI URIC ACIDon 11-16-2024 Urate [Mass/Vol] 6.5 mg/dL Normal 2.5-7.0 [facility] Comment on above: Result Comment: Ther apeutic target for gout patients: <6.0 mg/dL Performed By: #### 2 49, 6399, 7832, 4942, 375, 5810, 83249, 60063, 4420, 40032, 351, %62068, 809, 353, 905 #### [facility] [address], [address] [place] [address] Informatics Spec: Lc Masters MD #### [id number] #### [facility], [address] [place] [address] Informatics Spec: Yuki Paul MD,PhD,NEPTALI PROTEIN, TOTAL W/CREAT, [facility] URINEon 11-12-2024 Creatinine (U) [Mass/Vol] 99 mg/dL Normal 20-275 [facility] Comment on above: Performed By: #### 2 49, 6399, 7832, 4942, 375, 5810, 77626, 44096, 4420, 62166, 351, %67319, 809, 353, 905 #### [facility] [place] [address], [address] [place] [address] Informatics Spec: Lc Masters MD #### [id number] #### [facility], [address] [place] [address] Informatics Spec: Yuki Paul MD,PhD,NEPTALI Protein (U) [Mass/Vol] 9 mg/dL Normal 5-24 [facility] Comment on above: Performed By: #### 2 49, 6399, 7832, 4942, 375, 5810, 86197, 02894, 4420, 35606, 351, %50754, 809, 353, 905 #### [facility] [place] [address] [place] [address] [place] , [address] [place] [address] Informatics Spec: Lc Masters MD #### [id number] #### [facility], [address] [place] [address] Informatics Spec: Yuki Paul MD,PhD,NEPTALI PROTEIN/CREATININE RATIO 91 mg/g creat Normal 24-184 [facility] Comment on above: Performed By: #### 2 49, 6399, 7832, 4942, 375, 5810, 79206, 75256, 4420, 54627, 351, %02776, 809, 353, 905 #### [facility] [place] [address], [address] [place] [address] Informatics Spec: Lc Masters MD #### [id number] #### [facility], [facility] [place] [id number] Informatics Spec: Yuki Paul MD,PhD,NEPTALI PROTEIN/CREATININE RATIO 0.091 mg/mg creat Normal 0.024-0.184 [facility] Comment on above: Performed By: #### 2 49, 6399, 7832, 4942, 375, 5810, 75113, 93123, 4420, 60215, 351, %83030, 809, 353, 905 #### [facility] [address], [address] [place] [address] Informatics Spec: Lc Masters MD #### [id number] #### [facility], [address] [place], [place] [address] Informatics Spec: Yuki Paul MD,PhD,NEPTALI URINALYSIS, COMPLETE 11-12 Appearance (U) CLEAR Normal CLEAR [facility] Comment on above: Order Comment: FASTI NG:YESFASTING: YES Performed By: #### 2 49, 6399, 7832, 4942, 375, 5810, 30424, 92833, 4420, 64060, 351, %06431, 809, 353, 905 #### [facility] [place] [address] Informatics Spec: Lc Masters MD #### [id number] #### [facility], [address] [place], [place] Informatics Spec: Yuki Paul MD,PhD,NEPTALI BACTERIA NONE SEEN Normal NONE SEEN [facility] Comment on above: Order Comment: FASTI NG:YESFASTING: YES Performed By: #### 2 49, 6399, 7832, 4942, 375, 5810, 52959, 31982, 4420, 42009, 351, %74069, 809, 353, 905 #### [facility] [address] [place] , [address] [place] [address] Informatics Spec: Lc Masters MD #### [id number] #### [facility], [facility] [place] [address] Informatics Spec: Yuki Paul MD,PhD,NEPTALI Bilirubin Ql (U) Negative Normal NEGATIVE [facility] Comment on above: Order Comment: FASTI NG:YESFASTING: YES Performed By: #### 2 49, 6399, 7832, 4942, 375, 5810, 71600, 49194, 4420, 15237, 351, %20887, 809, 353, 905 #### [facility] [address], [address] [place] [address] Informatics Spec: Lc Masters MD #### [id number] #### [facility], [facility] [place] [address] Informatics Spec: Yuki Paul MD,PhD,NEPTALI Color (U) YELLOW Normal YELLOW [facility] Comment on above: Order Comment: FASTI NG:YESFASTING: YES Performed By: #### 2 49, 6399, 7832, 4942, 375, 5810, 37061, 13229, 4420, 43806, 351, %07718, 809, 353, 905 #### [facility] [address], [address] [place] [address] Informatics Spec: Lc Masters MD #### [id number] #### [facility], [address] [place] [address] Informatics Spec: Yuki Paul MD,PhD,NEPTALI Glucose Ql (U) Negative Normal NEGATIVE [facility] Comment on above: Order Comment: FASTI NG:YESFASTING: YES Performed By: #### 2 49, 6399, 7832, 4942, 375, 5810, 65699, 40421, 4420, 77922, 351, %03298, 809, 353, 905 #### [facility] [address], [address] [place] [address] Informatics Spec: Lc Masters MD #### [id number] #### [facility], [address] [place], [place] [address] Informatics Spec: Yuki Paul MD,PhD,NEPTALI HYALINE CAST NONE SEEN Normal NONE SEEN [facility] Comment on above: Order Comment: FASTI NG:YESFASTING: YES Performed By: #### 2 49, 6399, 7832, 4942, 375, 5810, 76076, 93156, 4420, 03029, 351, %61159, 809, 353, 905 #### [facility] [place] [address] Informatics Spec: Lc Masters MD #### [id number] #### [facility], [address] [place] [address] Informatics Spec: Yuki Paul MD,PhD,NEPTALI Ketones Ql (U) Negative Normal NEGATIVE [facility] Comment on above: Order Comment: FASTI NG:YESFASTING: YES Performed By: #### 2 49, 6399, 7832, 4942, 375, 5810, 61747, 58553, 4420, 54044, 351, %13020, 809, 353, 905 #### [facility] [address] , [address] [place] [address] Informatics Spec: Lc Masters MD #### [id number] #### [facility], [address] [place] [address] Informatics Spec: Yuki Paul MD,PhD,NEPTALI Leukocyte esterase Test strip Ql (U) Negative Normal NEGATIVE [facility] Comment on above: Order Comment: FASTI NG:YESFASTING: YES Performed By: #### 2 49, 6399, 7832, 4942, 375, 5810, 69242, 85389, 4420, 71109, 351, %61142, 809, 353, 905 #### [facility] [address], [address] [place] [address] Informatics Spec: Lc Masters MD #### [id number] #### [facility], [address] [place], [place] [address] Informatics Spec: Yuki Paul MD,PhD,NEPTALI Nitrite Ql (U) Negative Normal NEGATIVE [facility] Comment on above: Order Comment: FASTI NG:YESFASTING: YES Performed By: #### 2 49, 6399, 7832, 4942, 375, 5810, 89572, 91303, 4420, 94432, 351, %20373, 809, 353, 905 #### [facility] [address], [address] [place] [address] Informatics Spec: Lc Masters MD #### [id number] #### [facility], [facility] [place] [address] Informatics Spec: Yuki Paul MD,PhD,NEPTALI OCCULT BLOOD Negative Normal NEGATIVE [facility] Comment on above: Order Comment: FASTI NG:YESFASTING: YES Performed By: #### 2 49, 6399, 7832, 4942, 375, 5810, 68889, 51614, 4420, 68535, 351, %28641, 809, 353, 905 #### [facility] [address], [address] [place] [address] Informatics Spec: Lc Masters MD #### [id number] #### [facility], [facility] [place] [address] Informatics Spec: Yuki Paul MD,PhD,NEPTALI pH (U) 5.5 [pH] Normal 5.0-8.0 [facility] Comment on above: Order Comment: FASTI NG:YESFASTING: YES Performed By: #### 2 49, 6399, 7832, 4942, 375, 5810, 76252, 20039, 4420, 64784, 351, %57520, 809, 353, 905 #### [facility] [address], [address] [place] [address] Informatics Spec: Lc Masters MD #### [id number] #### [facility], [address] [place], [place] [address] Informatics Spec: Yuki Paul MD,PhD,NEPTALI Protein Ql (U) Negative Normal NEGATIVE [facility] Comment on above: Order Comment: FASTI NG:YESFASTING: YES Performed By: #### 2 49, 6399, 7832, 4942, 375, 5810, 99777, 09569, 4420, 22223, 351, %79275, 809, 353, 905 #### [facility] [place] [address] Informatics Spec: Lc Masters MD #### [id number] #### [facility], [address] [place], [place] [address] Informatics Spec: Yuki Paul MD,PhD,NEPTALI RBC NONE SEEN Normal < OR = 2 [facility] Comment on above: Order Comment: FASTI NG:YESFASTING: YES Performed By: #### 2 49, 6399, 7832, 4942, 375, 5810, 34854, 30956, 4420, 23884, 351, %22197, 809, 353, 905 #### [facility] [place] [address] [place] [address] Informatics Spec: Lc Masters MD #### [id number] #### [facility], [address] [place] [address] Informatics Spec: Yuki Paul MD,PhD,NEPTALI Specific gravity (U) [Rel density] 1.020 Normal 1.001-1.035 [facility] Comment on above: Order Comment: FASTI NG:YESFASTING: YES Performed By: #### 2 49, 6399, 7832, 4942, 375, 5810, 99273, 35626, 4420, 48677, 351, %58523, 809, 353, 905 #### [facility] [place] [address] Informatics Spec: Lc Masters MD #### [id number] #### [facility], [facility] [place] [id number] Informatics Spec: Yuki Paul MD,PhD,NEPTALI SQUAMOUS EPITHELIAL CELLS 0-5 Normal < OR = 5 [facility] Comment on above: Order Comment: FASTI NG:YESFASTING: YES Performed By: #### 2 49, 6399, 7832, 4942, 375, 5810, 22946, 14075, 4420, 26064, 351, %61040, 809, 353, 905 #### [facility] [address], [address] [place] [address] Informatics Spec: cL Masters MD #### [id number] #### [facility], [address] [place] [address] Informatics Spec: Yuki Paul MD,PhD,NEPTALI WBC NONE SEEN Normal < OR = 5 [facility] Comment on above: Order Comment: FASTI NG:YESFASTING: YES Performed By: #### 2 49, 6399, 7832, 4942, 375, 5810, 61049, 76195, 4420, 55463, 351, %47017, 809, 353, 905 #### [facility] [address], [address] [place] [address] Informatics Spec: Lc Masters MD #### [id number] #### [facility], [address] [place] [address] Informatics Spec: Yuki Paul MD,PhD,NEPTALI COMPREHENSIVE METABOLIC [facility] 06-25-2024 Albumin [Mass/Vol] 4.2 g/dL Normal 3.6-5.1 [facility] Comment on above: Performed By: #### 2 49, 6399, 7832, 4942, 375, 5810, 49262, 12442, 4420, 84150, 351, %06498, 809, 353, 905 #### [facility] [address], [address] [place] [address] Informatics Spec: Lc Masters MD #### [id number] #### [facility], [facility] [place] [address] Informatics Spec: Yuki Paul MD,PhD,NEPTALI Albumin/Globulin [Mass ratio] 1.2 {ratio} Normal 1.0-2.5 [facility] Comment on above: Performed By: #### 2 49, 6399, 7832, 4942, 375, 5810, 75786, 67236, 4420, 51000, 351, %75887, 809, 353, 905 #### [facility] [address], [address] [place] [address] Informatics Spec: Lc Masters MD #### [id number] #### [facility], [address] [place] [address] Informatics Spec: Yuki Paul MD,PhD,NEPTALI ALP [Catalytic activity/Vol] 66 U/L Normal 37-153 [facility] Comment on above: Performed By: #### 2 49, 6399, 7832, 4942, 375, 5810, 93996, 69686, 4420, 59926, 351, %33503, 809, 353, 905 #### [facility] [place] [address] Informatics Spec: Lc Masters MD #### [id number] #### [facility], [address] [place], [place] [address] Informatics Spec: Yuki Paul MD,PhD,NEPTALI ALT [Catalytic activity/Vol] 13 U/L Normal 6-29 [facility] Comment on above: Performed By: #### 2 49, 6399, 7832, 4942, 375, 5810, 99032, 25559, 4420, 74177, 351, %81308, 809, 353, 905 #### [facility] [place] [address] Informatics Spec: Lc Matsers MD #### [id number] #### [facility], [address] [place] [address] Informatics Spec: Yuki Paul MD,PhD,NEPTALI AST [Catalytic activity/Vol] 14 U/L Normal 10-35 [facility] Comment on above: Performed By: #### 2 49, 6399, 7832, 4942, 375, 5810, 72397, 14600, 4420, 74116, 351, %40040, 809, 353, 905 #### [facility] [place] [address] Informatics Spec: Lc Masters MD #### [id number] #### [facility], [address] [place] [address] Informatics Spec: Yuki Paul MD,PhD,NEPTALI Bilirubin [Mass/Vol] 0.5 mg/dL Normal 0.2-1.2 [facility] Comment on above: Performed By: #### 2 49, 6399, 7832, 4942, 375, 5810, 07631, 47186, 4420, 13303, 351, %83357, 809, 353, 905 #### [facility] [address], [address] [place] [address] Informatics Spec: Lc Masters MD #### [id number] #### [facility], [address] [place] [address] Informatics Spec: Yuki Paul MD,PhD,NEPTALI BUN/CREATININE RATIO SEE NOTE: Normal 6-22 [facility] Comment on above: Result Comment: Not Reported: BUN and Creatinine are within reference range. Performed By: #### 2 49, 6399, 7832, 4942, 375, 5810, 39746, 00713, 4420, 76728, 351, %59660, 809, 353, 905 #### [facility] [address], [address] [place] [address] Informatics Spec: Lc Masters MD #### [id number] #### [facility], [address] [place] [address] Informatics Spec: Yuki Paul MD,PhD,NEPTALI Calcium [Mass/Vol] 9.5 mg/dL Normal 8.6-10.4 [facility] Comment on above: Performed By: #### 2 49, 6399, 7832, 4942, 375, 5810, 03033, 77993, 4420, 35200, 351, %12490, 809, 353, 905 #### [facility] [address], [address] [place] [address] Informatics Spec: Lc Masters MD #### [id number] #### [facility], [address] [place] [address] Informatics Spec: Yuki Paul MD,PhD,NEPTALI Chloride [Moles/Vol] 102 mmol/L Normal 98-110 [facility] Comment on above: Performed By: #### 2 49, 6399, 7832, 4942, 375, 5810, 63843, 81468, 4420, 75618, 351, %87706, 809, 353, 905 #### [facility] [address], [address] [place] [address] Informatics Spec: Lc Masters MD #### [id number] #### [facility], [address] [place] [address] Informatics Spec: Yuki Paul MD,PhD,NEPTALI CO2 [Moles/Vol] 27 mmol/L Normal 20-32 [facility] Comment on above: Performed By: #### 2 49, 6399, 7832, 4942, 375, 5810, 23527, 28026, 4420, 71970, 351, %78662, 809, 353, 905 #### [facility] [address], [address] [place] [address] Informatics Spec: Lc Masters MD #### [id number] #### [facility], [facility] [place] [address] Informatics Spec: Yuki Paul MD,PhD,NEPTALI Creatinine [Mass/Vol] 0.80 mg/dL Normal 0.50-1.[address] [facility] [address] [facility] Comment on above: Performed By: #### 2 49, 6399, 7832, 4942, 375, 5810, 80056, 51889, 4420, 11032, 351, %21150, 809, 353, 905 #### [facility] [place] [address] Informatics Spec: Lc Masters MD #### [id number] #### [facility], [address] [place] [address] Informatics Spec: Yuki Paul MD,PhD,NEPTALI GFR/1.73 sq M.predicted among non-blacks MDRD (S/P/Bld) [Vol rate/Area] 86 mL/min/{1.73_m2} Normal > OR = 60 [facility] Comment on above: Performed By: #### 2 49, 6399, 7832, 4942, 375, 5810, 75268, 53251, 4420, 05749, 351, %01947, 809, 353, 905 #### [facility] [place] [address] Informatics Spec: Lc Masters MD #### 21306 #### [facility] [address] Informatics Spec: Yuki Paul MD,PhD,NEPTALI Globulin (S) [Mass/Vol] 3.4 g/dL Normal 1.9-3.7 [facility] Comment on above: Performed By: #### 2 49, 6399, 7832, 4942, 375, 5810, 95712, 09347, 4420, 05133, 351, %55099, 809, 353, 905 #### [place] [address] Informatics Spec: Lc Masters MD #### 08585 #### [facility] [address] Informatics Spec: Yuki Paul MD,PhD,NEPTALI Glucose [Mass/Vol] 95 mg/dL Normal 65-99 [facility] Comment on above: Result Comment: Fasting reference interval Performed By: #### 2 49, 6399, 7832, 4942, 375, 5810, 77555, 08281, 4420, 57206, 351, %54655, 809, 353, 905 #### [place] [address] Informatics Spec: Lc Masters MD #### [id number] #### [facility], [address] [place] Informatics Spec: Yuki Paul MD,PhD,NEPTALI Potassium [Moles/Vol] 4.9 mmol/L Normal 3.5-5.[address] [facility] [address] [facility] Comment on above: Performed By: #### 2 49, 6399, 7832, 4942, 375, 5810, 23349, 92880, 4420, 51517, 351, %91722, 809, 353, 905 #### [facility] [address], [address] [place] [address] Informatics Spec: Lc Masters MD #### [id number] #### [facility], [address] [place] [address] Informatics Spec: Yuki Paul MD,PhD,NEPTALI Protein [Mass/Vol] 7.6 g/dL Normal 6.1-8.1 [facility] Comment on above: Performed By: #### 2 49, 6399, 7832, 4942, 375, 5810, 52766, 65446, 4420, 45798, 351, %03564, 809, 353, 905 #### [place] [address] Informatics Spec: Lc Masters MD #### [id number] #### [facility], [facility] [place] Informatics Spec: Yuki Paul MD,PhD,NEPTALI Sodium [Moles/Vol] 138 mmol/L Normal 135-146 [facility] Comment on above: Performed By: #### 2 49, 6399, 7832, 4942, 375, 5810, 26827, 62049, 4420, 54160, 351, %10812, 809, 353, 905 #### [facility] [place] [address] [place] [address] Informatics Spec: Lc Masters MD #### [id number] #### [facility], [address] [facility] [place] Informatics Spec: Yuki Paul MD,PhD,NEPTALI Urea nitrogen [Mass/Vol] 17 mg/dL Normal 7-25 [facility] Comment on above: Performed By: #### 2 49, 6399, 7832, 4942, 375, 5810, 57895, 96417, 4420, 07304, 351, %76738, 809, 353, 905 #### [facility] [place] [address] Informatics Spec: Lc Masters MD #### [id number] #### [facility] [address] [place], [place] Informatics Spec: Yuki Paul MD,PhD,NEPTALI LIPID PANEL, [facility] 07-2 Cholesterol [Mass/Vol] 183 mg/dL Normal <200 [facility] Comment on above: Performed By: #### 2 49, 6399, 7832, 4942, 375, 5810, 28095, 87271, 4420, 15930, 351, %52629, 809, 353, 905 #### [facility] [place] [address] Informatics Spec: Lc Masters MD #### [id number] #### [facility] [address] [facility] [place] Informatics Spec: Yuki Paul MD,PhD,NEPTALI Cholesterol in HDL [Mass/Vol] 53 mg/dL Normal > OR = 50 [facility] Comment on above: Performed By: #### 2 49, 6399, 7832, 4942, 375, 5810, 90372, 54919, 4420, 06042, 351, %51558, 809, 353, 905 #### [facility] [address], [address] [place] [address] Informatics Spec: Lc Masters MD #### [id number] #### [facility], [address] [place] [address] Informatics Spec: Yuki Paul MD,PhD,NEPTALI Cholesterol in LDL [Mass/Vol] 105 mg/dL High [facility] Comment on above: Result Comment: Refe [...] LDL-C. Maximiliano VAZQUEZ et al. ABBIE. 2013;310(19): 7312-8050 (http://education.ScoreStream/faq/TQB541) Performed By: #### 2 49, 6399, 7832, 4942, 375, 5810, 93792, 38465, 4420, 70010, 351, %83288, 809, 353, 905 #### [facility] [address], [address] [place] [address] Informatics Spec: Lc Masters MD #### [id number] #### [facility], [address] [place] [address] Informatics Spec: Yuki Paul MD,PhD,NEPTALI Cholesterol.total/Chol esterol in HDL [Mass ratio] 3.5 {ratio} Normal <5.0 [employer] Comment on above: Performed By: #### 2 49, 6399, 7832, 4942, 375, 5810, 09067, 26519, 4420, 14781, 351, %20645, 809, 353, 905 #### [facility] [address], [address] [place] [address] Informatics Spec: Lc Masters MD #### [id number] #### [facility], [address] [place] [address] Informatics Spec: Yuki Paul MD,PhD,NEPTALI NON HDL CHOLESTEROL 130 mg/dL (calc) High <130 [facility] Comment on above: Result Comment: For patients with diabetes plus 1 major ASCVD risk factor, treating to a non-HDL-C goal of <100 mg/dL (LDL-C of <70 mg/dL) is considered a therapeutic option. Performed By: #### 2 49, 6399, 7832, 4942, 375, 5810, 61689, 60491, 4420, 16495, 351, %46912, 809, 353, 905 #### [place] [address] Informatics Spec: Lc Masters MD #### [id number] #### [facility], [address] [place], [place] Informatics Spec: Yuki Paul MD,PhD,NEPTALI Triglyceride [Mass/Vol] 136 mg/dL Normal <150 [facility] Comment on above: Performed By: #### 2 49, 6399, 7832, 4942, 375, 5810, 64944, 36544, 4420, 90603, 351, %09035, 809, 353, 905 #### [facility] [place] [address] Informatics Spec: Lc Masters MD #### [id number] #### [facility], [address] [place] [address] Informatics Spec: Yuki Paul MD,PhD,NEPTALI Laboratory - Chemistry and C hemistry - challengeon 06-24-2024 Albumin [Mass/Vol] 4.2 g/dL Normal 3.6 - 5.1 g/dL [facility] Albumin/Globulin [Mass ratio] 1.2 {ratio} Normal 1.0 - 2.5 [facility], [facility]. ALP [Catalytic activity/Vol] 66 U/L Normal 37 - 153 U/L [facility].; [facility], [facility]. ALT [Catalytic activity/Vol] 13 U/L Normal 6 - 29 U/L [facility], [facility] AST [Catalytic activity/Vol] 14 U/L Normal 10 - 35 U/L [facility].; [facility], [facility] Bilirubin [Mass/Vol] 0.5 mg/dL Normal 0.2 - 1 .2 mg/dL [facility]; [facility], [facility] Calcium [Mass/Vol] 9.5 mg/dL Normal 8.6 - 10. 4 mg/dL [facility]; [facility], [facility] Chloride [Moles/Vol] 102 mmol/L Normal 98 - 11 0 mmol/L [facility].; [facility], [facility]. Cholesterol [Mass/Vol] 183 mg/dL Normal [facility]; [facility], [facility] Cholesterol in HDL [Mass/Vol] 53 mg/dL Normal [facility]; [facility], [facility]. Cholesterol in LDL [Mass/Vol] 105 mg/dL Abnormal [facility]; [facility], [facility] CO2 [Moles/Vol] 27 mmol/L Normal 20 - 32 mmol/L [facility].; [facility], [facility] Creatinine [Mass/Vol] 0.80 mg/dL Normal 0.50 - 1.03 mg/dL [facility].; [facility], [facility]. GFR/1.73 sq M.predicted among non-blacks MDRD (S/P/Bld) [Vol rate/Area] 86 mL/min/{1.73_m2} Normal [facility], [facility].; [facility], [facility] Glucose [Mass/Vol] 95 mg/dL Normal 65 - 99 mg/dL [facility], [facility].; [facility], [facility] Potassium [Moles/Vol] 4.9 mmol/L Normal 3.5 - 5.3 mmol/L [facility]. Protein [Mass/Vol] 7.6 g/dL Normal 6.1 - 8.1 g/dL [facility].; [facility], [facility]. Sodium [Moles/Vol] 138 mmol/L Normal 135 - 146 mmol/L [facility].; [place] [address] [facility] Triglyceride [Mass/Vol] 136 mg/dL Normal [facility].; [place] [address] [facility] Urea nitrogen [Mass/Vol] 17 mg/dL Normal 7 - 25 mg/dL [facility].; [place] [address] [facility] No Panel Informationon 06-24 BUN/CREATININE RATIO SEE NOTE: Normal 6 - 22 [facility].; [place] [address] [facility]. CHOL/HDLC RATIO 3.5 Normal [facility]; [place] [employer] [facility]. GLOBULIN 3.4 Normal 1.9 - 3.7 [facility].; [place] [address] [facility]. NON HDL CHOLESTEROL [address] [facility].; [place] [address] [facility]. LIZ SCREEN, IFA, W/REFL TITE R AND PATTERNon 06-15-2024 LIZ SCREEN, IFA Positive Abnormal NEGATIVE [employer] Comment on above: Result Comment: LIZ IFA is a first line screen for detecting the presence of up to approximately 150 autoantibodies in various autoimmune diseases. A positive LIZ IFA result is suggestive of autoimmune disease and reflexes to titer and pattern. Further laboratory testing may be considered if clinically indicated. For additional information, please refer to http://education.ITelagen.MyCadbox/faq/DOD698 (This link is being provided for informational/ educational purposes only.) Performed By: #### 2 49, 6399, 7832, 4942, 375, 5810, 52201, 04549, 4420, 98887, 351, %58449, 809, 353, 905 #### [facility] [address] [facility], [address] [place] [address] Informatics Spec: Lc Masters MD #### [id number] #### [facility], [address] [place] [address] Informatics Spec: Yuki Paul MD,PhD,NEPTALI ANTINUCLEAR ANTIBODIES TITER AND PATTERNon 06-15-2024 LIZ PATTERN Nuclear, Homogeneous Abnormal [facility] Comment on above: Result Comment: Homo geneous pattern is associated with systemic lupus erythematosus (SLE), drug-induced lupus and juvenile idiopathic arthritis. AC-1: Homogeneous International Consensus on LIZ Patterns (https://doi.org/10.1515/ifal-5335-2710) Performed By: #### 2 49, 6399, 7832, 4942, 375, 5810, 83738, 21869, 4420, 47117, 351, %67293, 809, 353, 905 #### [facility] [place] [address] Informatics Spec: Lc Masters MD #### [id number] #### [facility], [address] [place] [address] Informatics Spec: Yuki Paul MD,PhD,NEPTALI LIZ PATTERN Nuclear, Speckled Abnormal [facility] Comment on above: Result Comment: Spec kled pattern is associated with mixed connective tissue disease (MCTD), systemic lupus erythematosus (SLE), Sjogren's syndrome, dermatomyositis, and systemic sclerosis/polymyositis overlap. AC-2,4,5,29: Speckled International Consensus on LIZ Patterns (https://doi.org/10.1515/vxvo-3436-4687) Performed By: #### 2 49, 6399, 7832, 4942, 375, 5810, 52016, 51872, 4420, 74975, 351, %39298, 809, 353, 905 #### [facility] [address], [address] [place] [address] Informatics Spec: Lc Masters MD #### [id number] #### [facility], [address] [place] [address] Informatics Spec: Yuki Paul MD,PhD,NEPTALI LIZ TITER 1:320 High [facility] Comment on above: Result Comment: Refe rence Range <1:40 Negative 1:40-1:80 Low Antibody Level >1:80 Elevated Antibody Level Performed By: #### 2 49, 6399, 7832, 4942, 375, 5810, 32480, 49305, 4420, 90309, 351, %31760, 809, 353, 905 #### [facility] [place] [address] Informatics Spec: Lc Masters MD #### [id number] #### [facility], [address] [place], [place] [address] Informatics Spec: Yuki Paul MD,PhD,NEPTALI C-REACTIVE PROTEINon 024 CRP [Mass/Vol] 32.4 mg/L High <8.0 [facility] Comment on above: Performed By: #### 2 49, 6399, 7832, 4942, 375, 5810, 74024, 71421, 4420, 60531, 351, %27916, 809, 353, 905 #### [facility] [place] [address] Informatics Spec: Lc Masters MD #### [id number] #### [facility], [address] [place] [address] Informatics Spec: Yuki Paul MD,PhD,NEPTALI CBC (INCLUDES DIFF/PLT)on Basophils (Bld) [#/Vol] 0 10*3/uL Normal 0-200 [facility] Comment on above: Performed By: #### 2 49, 6399, 7832, 4942, 375, 5810, 06503, 80614, 4420, 36731, 351, %82718, 809, 353, 905 #### [facility] [place] [address] Informatics Spec: Lc Masters MD #### [id number] #### [facility], [facility] [place] [id number] Informatics Spec: Yuki Paul MD,PhD,NEPTALI Basophils/100 WBC (Bld) 0.0 % Normal [facility] Comment on above: Performed By: #### 2 49, 6399, 7832, 4942, 375, 5810, 37715, 06724, 4420, 56603, 351, %36454, 809, 353, 905 #### [facility] [address], [address] [place] [address] Informatics Spec: Lc Masters MD #### [id number] #### [facility], [facility] [place] [id number] Informatics Spec: Yuki Paul MD,PhD,NEPTALI Eosinophils (Bld) [#/Vol] 0 10*3/uL Low 15-500 [facility] Comment on above: Performed By: #### 2 49, 6399, 7832, 4942, 375, 5810, 01882, 32925, 4420, 38131, 351, %27739, 809, 353, 905 #### [facility] [address], [address] [place] [address] Informatics Spec: Lc Masters MD #### [id number] #### [facility], [facility] [place] [id number] Informatics Spec: Yuki Paul MD,PhD,NEPTALI Eosinophils/100 WBC (Bld) 0.0 % Normal [facility] Comment on above: Performed By: #### 2 49, 6399, 7832, 4942, 375, 5810, 20933, 81431, 4420, 11885, 351, %91957, 809, 353, 905 #### [facility] [address], [address] [place] [address] Informatics Spec: Lc Masters MD #### [id number] #### [facility], [address] [place], [place] [address] Informatics Spec: Yuki Paul MD,PhD,NEPTALI Erythrocyte distribution width (RBC) [Ratio] 15.1 % High 11.0-15.0 [facility] Comment on above: Performed By: #### 2 49, 6399, 7832, 4942, 375, 5810, 74918, 49621, 4420, 93145, 351, %10622, 809, 353, 905 #### [facility] [address], [address] [place] [address] Informatics Spec: Lc Masters MD #### [id number] #### [facility]/[place] [id number] Informatics Spec: Yuki Paul MD,PhD,NEPTALI Hematocrit (Bld) [Volume fraction] 41.6 % Normal 35.0-45.0 [facility] Comment on above: Performed By: #### 2 49, 6399, 7832, 4942, 375, 5810, 95757, 72248, 4420, 83628, 351, %39201, 809, 353, 905 #### [facility] [address], [address] [place] [address] Informatics Spec: Lc Masters MD #### [id number] #### [facility], [facility] [place] [id number] Informatics Spec: Yuki Paul MD,PhD,NEPTALI Hemoglobin (Bld) [Mass/Vol] 13.4 g/dL Normal 11.7-15.5 [facility] Comment on above: Performed By: #### 2 49, 6399, 7832, 4942, 375, 5810, 38383, 68721, 4420, 23596, 351, %58242, 809, 353, 905 #### [facility] [place] [address] Informatics Spec: Lc Masters MD #### [id number] #### [facility], [address] [place], [place] [address] Informatics Spec: Yuki Paul MD,PhD,NEPTALI Lymphocytes (Bld) [#/Vol] 1.346 10*3/uL Normal 850-3900 [facility] Comment on above: Performed By: #### 2 49, 6399, 7832, 4942, 375, 5810, 51078, 02180, 4420, 17155, 351, %65745, 809, 353, 905 #### [facility] [place] [address] Informatics Spec: Lc Masters MD #### [id number] #### [facility], [address] [place], [place] [address] Informatics Spec: Yuki Paul MD,PhD,NEPTALI Lymphocytes/100 WBC (Bld) 19.5 % Normal [facility] Comment on above: Performed By: #### 2 49, 6399, 7832, 4942, 375, 5810, 32191, 02070, 4420, 08877, 351, %77250, 809, 353, 905 #### [facility] [place] [address] Informatics Spec: Lc Masters MD #### [id number] #### [facility], [facility] [place] [address] Informatics Spec: Yuki Paul MD,PhD,NEPTALI MCH (RBC) [Entitic mass] 27.7 pg Normal 27.0-33.0 [facility] Comment on above: Performed By: #### 2 49, 6399, 7832, 4942, 375, 5810, 70071, 83520, 4420, 85769, 351, %23826, 809, 353, 905 #### [facility] [place] [address] Informatics Spec: Lc Masters MD #### [id number] #### [facility], [address] [place] [address] Informatics Spec: Yuki Paul MD,PhD,NEPTALI MCHC (RBC) [Mass/Vol] 32.2 g/dL Normal 32.0-36.[address] [facility] [address] [facility] Comment on above: Performed By: #### 2 49, 6399, 7832, 4942, 375, 5810, 52163, 44577, 4420, 99989, 351, %44309, 809, 353, 905 #### [facility] [address] [place] [address] Informatics Spec: Lc Masters MD #### [id number] #### [facility], [address] [place] [address] Informatics Spec: Yuki Paul MD,PhD,NEPTALI MCV (RBC) [Entitic vol] 86.1 fL Normal 80.0-100.0 [facility] Comment on above: Performed By: #### 2 49, 6399, 7832, 4942, 375, 5810, 46987, 13154, 4420, 61155, 351, %18907, 809, 353, 905 #### [facility] [place] [address] [place] , [address] [place] [address] Informatics Spec: Lc Masters MD #### [id number] #### [facility]/[address] Informatics Spec: Yuki Paul MD,PhD,NEPTALI Monocytes (Bld) [#/Vol] 0.538 10*3/uL Normal 200-950 [facility] Comment on above: Performed By: #### 2 49, 6399, 7832, 4942, 375, 5810, 76363, 49778, 4420, 21836, 351, %36448, 809, 353, 905 #### [facility] [address], [address] [place] [address] Informatics Spec: Lc Masters MD #### [id number] #### [facility], [facility] [place] [address] Informatics Spec: Yuki Paul MD,PhD,NEPTALI Monocytes/100 WBC (Bld) 7.8 % Normal [facility] Comment on above: Performed By: #### 2 49, 6399, 7832, 4942, 375, 5810, 21263, 66161, 4420, 25749, 351, %64006, 809, 353, 905 #### [facility] [place] [address] Informatics Spec: Lc Masters MD #### 65029 #### [facility], [facility] [place] [address] Informatics Spec: Yuki Paul MD,PhD,NEPTALI Neutrophils (Bld) [#/Vol] 5.016 10*3/uL Normal 9971-1736 [facility] Comment on above: Performed By: #### 2 49, 6399, 7832, 4942, 375, 5810, 49566, 83584, 4420, 14775, 351, %53013, 809, 353, 905 #### [facility] [place] [address] Informatics Spec: Lc Masters MD #### [id number] #### [facility], [address] [place] [id number] Informatics Spec: Yuki Paul MD,PhD,NEPTALI Neutrophils/100 WBC (Bld) 72.7 % Normal [facility] Comment on above: Performed By: #### 2 49, 6399, 7832, 4942, 375, 5810, 35436, 94511, 4420, 01745, 351, %05741, 809, 353, 905 #### [facility] [address], [address] [place] [address] Informatics Spec: Lc Masters MD #### [id number] #### [facility], [facility] [place] Informatics Spec: Yuki Paul MD,PhD,NEPTALI Platelet mean volume (Bld) [Entitic vol] 10.0 fL Normal 7.5-12.5 [facility] Comment on above: Performed By: #### 2 49, 6399, 7832, 4942, 375, 5810, 22989, 70147, 4420, 60020, 351, %96861, 809, 353, 905 #### [facility] [place] [address] Informatics Spec: Lc Masters MD #### [id number] #### [facility], [facility] [place] Informatics Spec: Yuki Paul MD,PhD,NEPTALI Platelets (Bld) [#/Vol] 243 10*3/uL Normal 140-400 [facility] Comment on above: Performed By: #### 2 49, 6399, 7832, 4942, 375, 5810, 46412, 55608, 4420, 60150, 351, %91915, 809, 353, 905 #### [facility] [place] [address] Informatics Spec: Lc Masters MD #### 75930 #### [facility], [address] [place] Informatics Spec: Yuki Paul MD,PhD,NEPTALI RBC (Bld) [#/Vol] 4.83 10*6/uL Normal 3.80-5.10 [facility] Comment on above: Performed By: #### 2 49, 6399, 7832, 4942, 375, 5810, 58526, 24209, 4420, 31638, 351, %71963, 809, 353, 905 #### [facility] [place] [address] [place] , [address] [place] [address] Informatics Spec: Lc Masters MD #### [id number] #### [facility], [address] [place] [address] Informatics Spec: Yuki Paul MD,PhD,NEPTALI WBC (Bld) [#/Vol] 6.9 10*3/uL Normal 3.8-10.8 [facility] Comment on above: Performed By: #### 2 49, 6399, 7832, 4942, 375, 5810, 47154, 47598, 4420, 50577, 351, %15117, 809, 353, 905 #### [facility] [place] [address] [place] , [address] [place] [address] Informatics Spec: Lc Masters MD #### [id number] #### [facility], [address] [place] [address] Informatics Spec: Yuki Paul MD,PhD,NEPTALI COMPREHENSIVE METABOLIC PANE [facility] 06-15-2024 Albumin [Mass/Vol] 4.5 g/dL Normal 3.6-5.1 [facility] Comment on above: Performed By: #### 2 49, 6399, 7832, 4942, 375, 5810, 17545, 44878, 4420, 57039, 351, %78265, 809, 353, 905 #### [facility] [place] [address], [address] [place] [address] Informatics Spec: Lc Masters MD #### 59003 #### [facility], [address] [place], [place] [phone] Informatics Spec: Yuki Paul MD,PhD,NEPTALI Albumin/Globulin [Mass ratio] 1.2 {ratio} Normal 1.0-2.5 [facility] Comment on above: Performed By: #### 2 49, 6399, 7832, 4942, 375, 5810, 20417, 81906, 4420, 92781, 351, %06304, 809, 353, 905 #### [facility] [address], [address] [place] [address] Informatics Spec: Lc Masters MD #### [id number] #### [facility], [address] [place], [place] [address] Informatics Spec: Yuki Paul MD,PhD,NEPTALI ALP [Catalytic activity/Vol] 76 U/L Normal 37-153 [facility] Comment on above: Performed By: #### 2 49, 6399, 7832, 4942, 375, 5810, 09001, 61938, 4420, 49955, 351, %36544, 809, 353, 905 #### [facility] [address], [address] [place] [address] Informatics Spec: Lc Masters MD #### [id number] #### [facility], [address] [place], [place] [address] Informatics Spec: Yuki Paul MD,PhD,NEPTALI ALT [Catalytic activity/Vol] 12 U/L Normal 6-29 [facility] Comment on above: Performed By: #### 2 49, 6399, 7832, 4942, 375, 5810, 77157, 92003, 4420, 59096, 351, %79587, 809, 353, 905 #### [facility] [address], [address] [place] [address] Informatics Spec: Lc Masters MD #### 19091 #### [facility], [address] [place] [address] Informatics Spec: Yuki Paul MD,PhD,NEPTALI AST [Catalytic activity/Vol] 15 U/L Normal 10-35 [facility] Comment on above: Performed By: #### 2 49, 6399, 7832, 4942, 375, 5810, 32056, 45371, 4420, 85613, 351, %28744, 809, 353, 905 #### [facility] [address], [address] [place] [address] Informatics Spec: Lc Masters MD #### 52514 #### [facility], [address] [place] [address] Informatics Spec: Yuki Paul MD,PhD,NEPTALI Bilirubin [Mass/Vol] 0.4 mg/dL Normal 0.2-1.2 [facility] Comment on above: Performed By: #### 2 49, 6399, 7832, 4942, 375, 5810, 88411, 58386, 4420, 95115, 351, %10276, 809, 353, 905 #### [facility] [address], [address] [place] [address] Informatics Spec: Lc Masters MD #### [id number] #### [facility], [address] [place] [address] Informatics Spec: Yuki Paul MD,PhD,NEPTALI BUN/CREATININE RATIO SEE NOTE: Normal 6-22 [facility] Comment on above: Result Comment: Not Reported: BUN and Creatinine are within reference range. Performed By: #### 2 49, 6399, 7832, 4942, 375, 5810, 90058, 99273, 4420, 16740, 351, %47933, 809, 353, 905 #### [facility] [address], [address] [place] [address] Informatics Spec: Lc Masters MD #### [id number] #### [facility], [address] [place], [place] [address] Informatics Spec: Yuki Paul MD,PhD,NEPTALI Calcium [Mass/Vol] 10.0 mg/dL Normal 8.6-10.4 [facility] Comment on above: Performed By: #### 2 49, 6399, 7832, 4942, 375, 5810, 04644, 05465, 4420, 34701, 351, %97327, 809, 353, 905 #### [facility] [place] [address] Informatics Spec: Lc Masters MD #### [id number] #### [facility], [address] [place], [place] [phone] Informatics Spec: Yuki Paul MD,PhD,NEPTALI Chloride [Moles/Vol] 101 mmol/L Normal 98-110 [facility] Comment on above: Performed By: #### 2 49, 6399, 7832, 4942, 375, 5810, 64568, 25607, 4420, 69288, 351, %22931, 809, 353, 905 #### [facility] [place] [address] Informatics Spec: Lc Masters MD #### 13071 #### [facility], [facility] [place] [id number] Informatics Spec: Yuki Paul MD,PhD,NEPTALI CO2 [Moles/Vol] 25 mmol/L Normal 20-32 [facility] Comment on above: Performed By: #### 2 49, 6399, 7832, 4942, 375, 5810, 54070, 56907, 4420, 01960, 351, %00586, 809, 353, 905 #### [facility] [place] [address] [place] [address] Informatics Spec: Lc Masters MD #### [id number] #### [facility], [address] [place] [address] Informatics Spec: Yuki Paul MD,PhD,NEPTALI Creatinine [Mass/Vol] 0.89 mg/dL Normal 0.50-1.03 [facility] Comment on above: Performed By: #### 2 49, 6399, 7832, 4942, 375, 5810, 06375, 65114, 4420, 17990, 351, %99976, 809, 353, 905 #### [facility] [place] [address] Informatics Spec: Lc Masters MD #### 43889 #### [facility], [address] [place] [address] Informatics Spec: Yuki Paul MD,PhD,NEPTALI GFR/1.73 sq M.predicted among non-blacks MDRD (S/P/Bld) [Vol rate/Area] 76 mL/min/{1.73_m2} Normal > OR = 60 [facility] Comment on above: Performed By: #### 2 49, 6399, 7832, 4942, 375, 5810, 64587, 24740, 4420, 53682, 351, %18170, 809, 353, 905 #### [facility] [place] [address] Informatics Spec: Lc Masters MD #### [id number] #### [facility], [address] [place] [address] Informatics Spec: Yuki Paul MD,PhD,NEPTALI Globulin (S) [Mass/Vol] 3.7 g/dL Normal 1.9-3.7 [facility] Comment on above: Performed By: #### 2 49, 6399, 7832, 4942, 375, 5810, 81432, 04078, 4420, 46591, 351, %77527, 809, 353, 905 #### [place] [address] Informatics Spec: Lc Masters MD #### [id number] #### [facility], [address] [place] [address] Informatics Spec: Yuki Paul MD,PhD,NEPTALI Glucose [Mass/Vol] 110 mg/dL High 65-99 [facility] Comment on above: Result Comment: Fasting reference interval For someone without known diabetes, a glucose value between 100 and 125 mg/dL is consistent with prediabetes and should be confirmed with a follow-up test. Performed By: #### 2 49, 6399, 7832, 4942, 375, 5810, 57159, 30533, 4420, 33232, 351, %30161, 809, 353, 905 #### [place] [address] Informatics Spec: Lc Masters MD #### [id number] #### [facility], [address] [place] [address] Informatics Spec: Yuki Paul MD,PhD,NEPTALI Potassium [Moles/Vol] 4.7 mmol/L Normal 3.5-5.3 [facility] Comment on above: Performed By: #### 2 49, 6399, 7832, 4942, 375, 5810, 04920, 15717, 4420, 84522, 351, %14244, 809, 353, 905 #### [place] [address] Informatics Spec: Lc Masters MD #### [id number] #### [facility], [address] [place] [address] Informatics Spec: Yuki Paul MD,PhD,NEPTALI Protein [Mass/Vol] 8.2 g/dL High 6.1-8.1 [facility] Comment on above: Performed By: #### 2 49, 6399, 7832, 4942, 375, 5810, 12362, 83471, 4420, 63181, 351, %13873, 809, 353, 905 #### [facility] of [address], [address] [place] [address] Informatics Spec: Lc Masters MD #### [id number] #### [facility], [address] [facility] [address] Informatics Spec: Yuki Paul MD,PhD,NEPTALI Sodium [Moles/Vol] 136 mmol/L Normal 135-146 [facility] Comment on above: Performed By: #### 2 49, 6399, 7832, 4942, 375, 5810, 48065, 78683, 4420, 12222, 351, %04649, 809, 353, 905 #### [facility] of [address], [address] [place] [address] Informatics Spec: Lc Masters MD #### [id number] #### [facility] [address] [place] [address] Informatics Spec: Yuki Paul MD,PhD,NEPTALI Urea nitrogen [Mass/Vol] 21 mg/dL Normal 7-25 [facility] Comment on above: Performed By: #### 2 49, 6399, 7832, 4942, 375, 5810, 77818, 53782, 4420, 27410, 351, %68040, 809, 353, 905 #### [facility] [address], [address] [place] [address] Informatics Spec: Lc Masters MD #### [id number] #### [facility] [address] [place] [address] Informatics Spec: Yuki Paul MD,PhD,NEPTALI HEMOGLOBIN A1con 06-15-2024 HEMOGLOBIN [...] change in test platforms from the [employer] to the Jenna vasyl c503 may have shifted HbA1c results compared to historical results. Based on laboratory validation testing conducted at [facility], the Jenna platform relative to the [employer] [...] 2 49, 6399, 7832, 4942, 375, 5810, 34535, 18065, 4420, 50902, 351, %99605, 809, 353, 905 #### [facility] [address], [address] [place] [address] Informatics Spec: Lc Masters MD #### [id number] #### [facility], [address] [place] [address] Informatics Spec: Yuki Paul MD,PhD,NEPTALI SED RATE BY MODIFIED WESTERG RENkatherin 06-15-2024 SED RATE BY MODIFIED WESTERGREN 31 mm/h High < OR = 30 [facility] Comment on above: Performed By: #### 2 49, 6399, 7832, 4942, 375, 5810, 01363, 65683, 4420, 08257, 351, %04344, 809, 353, 905 #### [facility] [address], [address] [place] [address] Informatics Spec: Lc Masters MD #### [id number] #### [facility], [address] [place] [address] Informatics Spec: Yuki Paul MD,PhD,NEPTALI TSH W/REFLEX TO FT4on 2023 TSH W/REFLEX TO FT4 2.78 mIU/L Normal 0.40-4.50 [facility] Comment on above: Performed By: #### 2 49, 6399, 7832, 4942, 375, 5810, 14448, 14434, 4420, 80251, 351, %71331, 809, 353, 905 #### [facility] [place] [address] Informatics Spec: Lc Masters MD #### [id number] #### [facility], [address] [place] [address] Informatics Spec: Yuki Paul MD,PhD,NEPTALI URIC ACIDon 06-15-2024 Urate [Mass/Vol] 6.9 mg/dL Normal 2.5-7.0 [facility] Comment on above: Result Comment: Ther apeutic target for gout patients: <6.0 mg/dL Performed By: #### 2 49, 6399, 7832, 4942, 375, 5810, 78386, 10358, 4420, 68265, 351, %08211, 809, 353, 905 #### [facility] [place] [address] Informatics Spec: Lc Masters MD #### [id number] #### [facility], [address] [place] [address] Informatics Spec: Yuki Paul MD,PhD,NEPTALI VITAMIN B12on 06-15-2024 Cobalamin [...] 2 49, 6399, 7832, 4942, 375, 5810, 03060, 74208, 4420, 73307, 351, %53684, 809, 353, 905 #### [facility] [address], [address] [place] [address] Informatics Spec: Lc Masters MD #### [id number] #### [facility], [address] [place] [address] Informatics Spec: Yuki Paul MD,PhD,NEPTALI Laboratory - Chemistry and C hemistry - challengeon 06-13-2024 Albumin [Mass/Vol] 4.5 g/dL Normal 3.6 - 5.1 g/dL [facility] [employer] [employer] Albumin/Globulin [Mass ratio] 1.2 {ratio} Normal 1.0 - 2.5 [employer], [facility].; [employer] [facility] [employer] ALP [Catalytic activity/Vol] 76 U/L Normal 37 - 153 U/L [employer], [facility].; [employer] [facility] [employer] ALT [Catalytic activity/Vol] 12 U/L Normal 6 - 29 U/L [facility], [facility].; [facility] AST [Catalytic activity/Vol] 15 U/L Normal 10 - 35 U/L [facility], [facility].; [facility] [facility] Bilirubin [Mass/Vol] 0.4 mg/dL Normal 0.2 - 1 .2 mg/dL [facility], [facility].; [employer] [facility] Calcium [Mass/Vol] 10.0 mg/dL Normal 8.6 - 10. 4 mg/dL [facility], [facility].; [facility], [facility]. Chloride [Moles/Vol] 101 mmol/L Normal 98 - 11 0 mmol/L [facility].; [facility], [facility]. CO2 [Moles/Vol] 25 mmol/L Normal 20 - 32 mmol/L [facility], [facility].; [facility], [facility]. Cobalamin (Vitamin B12) [Mass/Vol] 339 pg/mL Normal 200 - 1100 pg/mL [facility].; [facility], [facility]. Creatinine [Mass/Vol] 0.89 mg/dL Normal 0.50 - 1.03 mg/dL [facility], [facility].; [facility], [facility]. CRP [Mass/Vol] 32.4 mg/L Abnormal [facility].; [facility], [facility]. GFR/1.73 sq M.predicted among non-blacks MDRD (S/P/Bld) [Vol rate/Area] 76 mL/min/{1.73_m2} Normal [facility], [facility].; [facility], [facility]. Glucose [Mass/Vol] 110 mg/dL Abnormal 65 - 99 mg/dL [facility], [facility].; [facility], [facility]. Potassium [Moles/Vol] 4.7 mmol/L Normal 3.5 - 5.3 mmol/L [facility].; [facility], [facility]. Protein [Mass/Vol] 8.2 g/dL Abnormal 6.1 - 8.1 g/dL [facility].; [employer], [facility]. Sodium [Moles/Vol] 136 mmol/L Normal 135 - 146 mmol/L [facility], [facility].; [place] [address] [facility], [facility]. Urate [Mass/Vol] 6.9 mg/dL Normal 2.5 - 7.0 mg/dL [facility].; [place] [address] [facility], [facility]. Urea nitrogen [Mass/Vol] 21 mg/dL Normal 7 - 25 mg/dL [facility], [facility].; [employer], [facility]. Laboratory - Hematology and Cell countson 06-13-2024 Basophils (Bld) [#/Vol] 0 10*3/uL Normal 0 - 200 {cells/uL} [facility].; [facility]. Basophils/100 WBC (Bld) 0.0 % Normal [facility].; [facility], [facility]. Eosinophils (Bld) [#/Vol] 0 10*3/uL Abnormal 15 - 500 {cells/uL} [facility], [facility].; [facility], [facility]. Eosinophils/100 WBC (Bld) 0.0 % Normal [facility].; [facility], [facility]. Erythrocyte distribution width (RBC) [Ratio] 15.1 % Abnormal 11.0 - 15.0 % [facility].; [place] [address] [facility], [facility]. HbA1c (Bld) [Mass fraction] 6.1 % Abnormal [facility].; [facility], [facility] Hematocrit (Bld) [Volume fraction] 41.6 % Normal 35.0 - 45.0 % [facility], [facility].; [facility], [facility] Hemoglobin (Bld) [Mass/Vol] 13.4 g/dL Normal 11.7 - 15.5 g/dL [facility].; [facility], [facility]. Lymphocytes (Bld) [#/Vol] 1.346 10*3/uL Normal 850 - 3900 {cells/uL} [facility].; [facility], [facility]. Lymphocytes/100 WBC (Bld) 19.5 % Normal [facility].; [employer], [facility]. MCH (RBC) [Entitic mass] 27.7 pg Normal 27.0 - 33.0 pg [facility].; [employer], [facility]. MCHC (RBC) [Mass/Vol] 32.2 g/dL Normal 32.0 - 36.0 g/dL [facility], [facility].; [place] [address] [facility], [facility]. MCV (RBC) [Entitic vol] 86.1 fL Normal 80.0 - 100.0 fL [facility].; [place] [address] [facility], [facility]. Monocytes (Bld) [#/Vol] 0.538 10*3/uL Normal 200 - 950 {cells/uL} [facility].; [employer], [facility]. Monocytes/100 WBC (Bld) 7.8 % Normal [facility]; [facility], [facility] Neutrophils (Bld) [#/Vol] 5.016 10*3/uL Normal 1500 - 7800 {cells/uL} [facility]; [facility], [facility] Neutrophils/100 WBC (Bld) 72.7 % Normal [facility]; [facility], [facility] Platelet mean volume (Bld) [Entitic vol] 10.0 fL Normal 7.5 - 12.5 fL [facility]; [facility], [facility] Platelets (Bld) [#/Vol] 243 10*3/uL Normal 140 - 400 [facility]; [facility], [facility] RBC (Bld) [#/Vol] 4.83 10*6/uL Normal 3.80 - 5.1 0 {Million/uL} [facility].; [facility], [facility]. WBC (Bld) [#/Vol] 6.9 10*3/uL Normal 3.8 - 10.8 [facility]; [facility] No Panel Informationon 06-13 LIZ PATTERN Nuclear, Homogeneous Abnormal [facility]; [facility], [facility] Work Phone: LIZ PATTERN Nuclear, Speckled Abnormal [facility]; [facility], [facility] Work Phone: LIZ SCREEN, IFA Positive Abnormal [facility]; [facility], [facility] LIZ TITER 1:320 Abnormal [facility]; [facility], [facility] Work Phone: BUN/CREATININE RATIO SEE NOTE: Normal 6 - 22 [facility].; [place] [address] [facility] GLOBULIN 3.7 Normal 1.9 - 3.7 [facility]; [facility], [facility] SED RATE BY MODIFIED WESTERGREN 31 mm/h Abnormal [facility]; [place] [address] [facility], [facility] TSH W/REFLEX TO FT4 2.78 {mIU/L} Normal 0.40 - 4 .50 {mIU/L} [facility], [facility]; [facility]. Culture, Blood (WB)on 2023 CUB No growth in 5 days. Normal [facility] Comment on above: Performed By: #### M 200.1000 ####[facility] [address] [place], [address] CUB No growth in 5 days. Normal [facility] Comment on above: Performed By: #### M 200.1000 ####[facility] [address] [place], [address] Basic Metabolic Profile (BMP )on 05-09-2024 BUN/CRE 16.3 RATIO Normal 10-20 [facility] Comment on above: Performed By: #### L 500.2500 ####[facility] [address] [place], [address] CA,Total 8.9 mg/dL Normal 8.5-10.1 [facility] Comment on above: Performed By: #### L 500.2500 ####[facility] [address] [place], [address] Chloride [Moles/Vol] 103 mmol/L Normal 98-107 [facility] Comment on above: Performed By: #### L 500.2500 ####[facility] [address] [place], [address] CO2 [Moles/Vol] 28.0 mmol/L Normal 21.0-32.0 [facility] Comment on above: Performed By: #### L 500.2500 ####[facility] [address] [place], [address] Creatinine [Mass/Vol] 0.74 mg/dL Normal 0.55-1.02 [facility] Comment on above: Result Comment: The validity of the calculated GFR GFRAA in patients over70 years has not been determined. Clinical correlation isessential. Performed By: #### L 500.2500 ####[facility] [address] [place], [address] ECRCL 164.91 ml/min Normal [facility] Comment on above: Performed By: #### L 500.2500 ####[facility] [address] [place], [address] EST GFR - AA 105 mL/min Normal >60 [facility] Comment on above: Result Comment: Afri can Haitian GFR Calc Performed By: #### L 500.2500 ####[facility] [address] [place], [address] GAP 6 Normal 5-15 [facility] Comment on above: Performed By: #### L 500.2500 ####[facility] [address] [place], [address] GFR/1.73 sq M.predicted among non-blacks MDRD (S/P/Bld) [Vol rate/Area] 87 mL/min/{1.73_m2} Normal >60 [facility] Comment on above: Result Comment: Non- GFR Calc Performed By: #### L 500.2500 ####[facility] [address] [place], [address] Glucose [Mass/Vol] 109 mg/dL High 74-106 [facility] Comment on above: Result Comment: Fast ing Glucose result from 100 to 125 mg/dLsuggests IMPAIRED HOMEOSTASIS per A.D.A. criteria. Performed By: #### L 500.2500 ####[facility] [address] [place], [address] Potassium [Moles/Vol] 3.6 mmol/L Normal 3.5-5.1 [facility] Comment on above: Performed By: #### L 500.2500 ####[facility] [address] [place], [address] Sodium [Moles/Vol] 137 mmol/L Normal 136-145 [facility] Comment on above: Performed By: #### L 500.2500 ####[facility] [address] [place], [address] Urea nitrogen [Mass/Vol] 12 mg/dL Normal 7-18 [facility] Comment on above: Performed By: #### L 500.2500 ####[facility] [address] [place], [address] Basic Metabolic Profile (BMP )on 05-08-2024 BUN/CRE 12.9 RATIO Normal 10-20 [facility] Comment on above: Performed By: #### L 100.0100, L500.2500 ####[facility] [address] [place], [address] CA,Total 8.6 mg/dL Normal 8.5-10.1 [facility] Comment on above: Performed By: #### L 100.0100, L500.2500 ####[facility] [address] [place], [address] Chloride [Moles/Vol] 106 mmol/L Normal 98-107 [facility] Comment on above: Performed By: #### L 100.0100, L500.2500 ####[facility] [address] [place], [address] CO2 [Moles/Vol] 25.0 mmol/L Normal 21.0-32.0 [facility] Comment on above: Performed By: #### L 100.0100, L500.2500 ####[facility] [address] [place], [address] Creatinine [Mass/Vol] 0.77 mg/dL Normal 0.55-1.02 [facility] Comment on above: Result Comment: The validity of the calculated GFR GFRAA in patients over70 years has not been determined. Clinical correlation isessential. Performed By: #### L 100.0100, L500.2500 ####[facility] [address] [place], [address] ECRCL 158.49 ml/min Normal [facility] Comment on above: Performed By: #### L 100.0100, L500.2500 ####[facility] [address] [place], [address] EST GFR - AA 99 mL/min Normal >60 [facility] Comment on above: Result Comment: Afri can Haitian GFR Calc Performed By: #### L 100.0100, L500.2500 ####[facility] [address] [place], [address] GAP 6 Normal 5-15 [facility] Comment on above: Performed By: #### L 100.0100, L500.2500 ####[facility] [address] [place], [address] GFR/1.73 sq M.predicted among non-blacks MDRD (S/P/Bld) [Vol rate/Area] 82 mL/min/{1.73_m2} Normal >60 [facility] Comment on above: Result Comment: Non- GFR Calc Performed By: #### L 100.0100, L500.2500 ####[facility] [address] [place], [address] Glucose [Mass/Vol] 110 mg/dL High 74-106 [facility] Comment on above: Result Comment: Fast ing Glucose result from 100 to 125 mg/dLsuggests IMPAIRED HOMEOSTASIS per A.D.A. criteria. Performed By: #### L 100.0100, L500.2500 ####[facility] [address] [place], [address] Potassium [Moles/Vol] 3.7 mmol/L Normal 3.5-5.1 [facility] Comment on above: Performed By: #### L 100.0100, L500.2500 ####[facility] [address] [place], [address] Sodium [Moles/Vol] 137 mmol/L Normal 136-145 [facility] Comment on above: Performed By: #### L 100.0100, L500.2500 ####[facility] [address] [place], [address] Urea nitrogen [Mass/Vol] 10 mg/dL Normal 7-18 [facility] Comment on above: Performed By: #### L 100.0100, L500.2500 ####[facility] [address] [place], [address] CBC W/Diff, Automatedon 06-0 9-2024 Absolute Lymph 0.70 X10 3/uL Low 0.83-4.51 [facility] Comment on above: Performed By: #### L 100.0100, L500.2500 ####[facility] [address] [place], [address] Absolute Neut 4.2 X10 3/uL Normal 2.0-7.7 [facility] Comment on above: Performed By: #### L 100.0100, L500.2500 ####[facility] [address] [place], [address] Basophils/100 WBC (Bld) 0.4 % Normal 0-1 [facility] Comment on above: Performed By: #### L 100.0100, L500.2500 ####[facility] [address] [place], [address] Eosinophils/100 WBC (Bld) 0.0 % Normal 0-5 [facility] Comment on above: Performed By: #### L 100.0100, L500.2500 ####[facility] [address] [place], [address] Erythrocyte distribution width (RBC) [Ratio] 15.1 % High 11.6-14.6 [facility] Comment on above: Performed By: #### L 100.0100, L500.2500 ####[facility] [address] [place], [address] Hematocrit (Bld) [Volume fraction] 36.0 % Low 37-47 [facility] Comment on above: Performed By: #### L 100.0100, L500.2500 ####[facility] [address] [place], [address] Hemoglobin (Bld) [Mass/Vol] 11.3 g/dL Low 12.0-15.0 [facility] Comment on above: Performed By: #### L 100.0100, L500.2500 ####[facility] [address] [place], [address] IG% 1.400 High 0.0-0.9 [facility] Comment on above: Result Comment: IG% - Immature Granulocytes (promyelocytes, myelocytes andmetamyelocytes) > 1% indicates that a LEFT SHIFT is Present. Performed By: #### L 100.0100, L500.2500 ####[facility] [address] [place], [address] Lymphocytes/100 WBC (Bld) 12.3 % Low 19-41 [facility] Comment on above: Performed By: #### L 100.0100, L500.2500 ####[facility] [address] [place], [address] MCH (RBC) [Entitic mass] 27.0 pg Normal 27.0-32.0 [facility] Comment on above: Performed By: #### L 100.0100, L500.2500 ####[facility] [address] [place], [address] MCHC (RBC) [Mass/Vol] 31.4 g/dL Low 32-36 [facility] Comment on above: Performed By: #### L 100.0100, L500.2500 ####[facility] [address] [place], [address] MCV (RBC) [Entitic vol] 86.1 fL Normal 81-99 [facility] Comment on above: Performed By: #### L 100.0100, L500.2500 ####[facility] [address] [place], [address] Monocytes/100 WBC (Bld) 12.6 % High 0-10 [facility] Comment on above: Performed By: #### L 100.0100, L500.2500 ####[facility] [address] [place], [address] Neutrophils/100 WBC (Bld) 73.3 % High 47-70 [facility] Comment on above: Performed By: #### L 100.0100, L500.2500 ####[facility] [address] [place], [address] Nucleated RBC (Bld) [#/Vol] 0 10*3/uL Normal 0-5 [facility] Comment on above: Performed By: #### L 100.0100, L500.2500 ####[facility] [address] [place], [address] Platelet mean volume (Bld) [Entitic vol] 9.6 fL Normal 6.2-12.0 [facility] Comment on above: Performed By: #### L 100.0100, L500.2500 ####[facility] [address] [place], [address] Platelets (Bld) [#/Vol] 148 10*3/uL Low 150-450 [facility] Comment on above: Performed By: #### L 100.0100, L500.2500 ####[facility] [address] [place], [address] RBC (Bld) [#/Vol] 4.18 10*6/uL Low 4.2-5.4 [facility] Comment on above: Performed By: #### L 100.0100, L500.2500 ####[facility] [address] [place], [address] RDW SD 47.4 fl High 35.1-43.9 [facility] Comment on above: Performed By: #### L 100.0100, L500.2500 ####[facility] [address] [place], [address] WBC (Bld) [#/Vol] 5.7 10*3/uL Normal 4.4-11.0 [facility] Comment on above: Performed By: #### L 100.0100, L500.2500 ####[facility] [address] [place], [address] Vancomycin, Trough Levelon 0 05-08-2024 VANCO, TROUGH 19.5 ug/mL High 5.0-15.0 [facility] Comment on above: Order Comment: Comme nts: Trough to be drawn 30 mins prior to scheduled [id number] Result Comment: VANC OMYCIN STANDARED DRUG THERAPY TROUGH LEVEL: 5.0 - 15.0 mg/LVANCOMYCIN HIGH INTENSITY THERAPY TROUGH LEVEL: 15.0 - 20.0 mg/LHigh Intensity therapy recommended for serious lifethreatening infections include:- Ionbbdmxic-Fbatypbnpzop-Ausctafhr (Ventilator/Healtcare Associated)-SepsisPLEASE CONTACT PHARMACY SERVICES (#5780) FOR INTERPRETATIONOF RESULTS. Performed By: #### L 501.8820 ####[facility] [address] [place], [address] Basic Metabolic Profile (BMP )on 05-07-2024 BUN/CRE 14.8 RATIO Normal 10-20 [facility] Comment on above: Performed By: #### L 500.2500 ####[facility] [address] [place], [address] CA,Total 8.9 mg/dL Normal 8.5-10.1 [facility] Comment on above: Performed By: #### L 500.2500 ####[facility] [address] [place], [address] Chloride [Moles/Vol] 105 mmol/L Normal 98-107 [facility] Comment on above: Performed By: #### L 500.2500 ####[facility] [address] [place], [address] CO2 [Moles/Vol] 25.0 mmol/L Normal 21.0-32.0 [facility] Comment on above: Performed By: #### L 500.2500 ####[facility] [address] [place] [id number] Creatinine [Mass/Vol] 0.81 mg/dL Normal 0.55-1.02 [facility] Comment on above: Result Comment: The validity of the calculated GFR GFRAA in patients over70 years has not been determined. Clinical correlation isessential. Performed By: #### L 500.2500 ####[facility] [address] [place] [id number] ECRCL 150.66 ml/min Normal [facility] Comment on above: Performed By: #### L 500.2500 ####[facility] [address] [place], [address] EST GFR - AA 94 mL/min Normal >60 [facility] Comment on above: Result Comment: Afri can Haitian GFR Calc Performed By: #### L 500.2500 ####[facility] [address] [place] [id number] GAP 5 Normal 5-15 [facility] Comment on above: Performed By: #### L 500.2500 ####[facility] [address] [place], [address] GFR/1.73 sq M.predicted among non-blacks MDRD (S/P/Bld) [Vol rate/Area] 78 mL/min/{1.73_m2} Normal >60 [facility] Comment on above: Result Comment: Non- GFR Calc Performed By: #### L 500.2500 ####[facility] [address] [place], [address] Glucose [Mass/Vol] 111 mg/dL High 74-106 [facility] Comment on above: Result Comment: Fast ing Glucose result from 100 to 125 mg/dLsuggests IMPAIRED HOMEOSTASIS per A.D.A. criteria. Performed By: #### L 500.2500 ####[facility] [address] [place], [address] Potassium [Moles/Vol] 3.8 mmol/L Normal 3.5-5.1 [facility] Comment on above: Performed By: #### L 500.2500 ####[facility] [address] [place], [address] Sodium [Moles/Vol] 135 mmol/L Low 136-145 [facility] Comment on above: Performed By: #### L 500.2500 ####[facility] [address] [place], [address] Urea nitrogen [Mass/Vol] 12 mg/dL Normal 7-18 [facility] Comment on above: Performed By: #### L 500.2500 ####[facility] [address] [place], [address] Vancomycin, Trough Levelon 0 - VANCO, TROUGH 16.6 ug/mL High 5.0-15.0 [facility] Comment on above: Order Comment: 0900 Result Comment: VANC OMYCIN STANDARED DRUG THERAPY TROUGH LEVEL: 5.0 - 15.0 mg/LVANCOMYCIN HIGH INTENSITY THERAPY TROUGH LEVEL: 15.0 - 20.0 mg/LHigh Intensity therapy recommended for serious lifethreatening infections include:- Pjihfutjtx-Yxhyviadaorf-Mubblfxwd (Ventilator/Healtcare Associated)-SepsisPLEASE CONTACT PHARMACY SERVICES (#5470) FOR INTERPRETATIONOF RESULTS. Performed By: #### L 501.8820 ####[facility] [address] [place], [address] Basic Metabolic Profile (BMP )on 05-06-2024 BUN/CRE 13.9 RATIO Normal 10-20 [facility] Comment on above: Performed By: #### L 100.0100, L500.2500 ####[facility] [address] [place], [address] CA,Total 8.9 mg/dL Normal 8.5-10.1 [facility] Comment on above: Performed By: #### L 100.0100, L500.2500 ####[facility] [address] [place], [address] Chloride [Moles/Vol] 105 mmol/L Normal 98-107 [facility] Comment on above: Performed By: #### L 100.0100, L500.2500 ####[facility] [address] [place], [address] CO2 [Moles/Vol] 22.0 mmol/L Normal 21.0-32.0 [facility] Comment on above: Performed By: #### L 100.0100, L500.2500 ####[facility] [address] [place], [address] Creatinine [Mass/Vol] 0.79 mg/dL Normal 0.55-1.02 [facility] Comment on above: Result Comment: The validity of the calculated GFR GFRAA in patients over70 years has not been determined. Clinical correlation isessential. Performed By: #### L 100.0100, L500.2500 ####[facility] [address] [place], [address] ECRCL 154.42 ml/min Normal [facility] Comment on above: Performed By: #### L 100.0100, L500.2500 ####[facility] [address] [place], [address] EST GFR - AA 97 mL/min Normal >60 [facility] Comment on above: Result Comment: Afri can Haitian GFR Calc Performed By: #### L 100.0100, L500.2500 ####[facility] [address] [place], [address] GAP 10 Normal 5-15 [facility] Comment on above: Performed By: #### L 100.0100, L500.2500 ####[facility] [address] [place], [address] GFR/1.73 sq M.predicted among non-blacks MDRD (S/P/Bld) [Vol rate/Area] 80 mL/min/{1.73_m2} Normal >60 [facility] Comment on above: Result Comment: Non- GFR Calc Performed By: #### L 100.0100, L500.2500 ####[facility] [address] [place], [address] Glucose [Mass/Vol] 112 mg/dL High 74-106 [facility] Comment on above: Result Comment: Fast ing Glucose result from 100 to 125 mg/dLsuggests IMPAIRED HOMEOSTASIS per A.D.A. criteria. Performed By: #### L 100.0100, L500.2500 ####[facility] [address] [place], [address] Potassium [Moles/Vol] 3.8 mmol/L Normal 3.5-5.1 [facility] Comment on above: Performed By: #### L 100.0100, L500.2500 ####[facility] [address] [place], [address] Sodium [Moles/Vol] 137 mmol/L Normal 136-145 [facility] Comment on above: Performed By: #### L 100.0100, L500.2500 ####[facility] [address] [place], [address] Urea nitrogen [Mass/Vol] 11 mg/dL Normal 7-18 [facility] Comment on above: Performed By: #### L 100.0100, L500.2500 ####[facility] [address] [place], [address] CBC W/Diff, Automatedon 06-0 7-2023 Absolute Lymph 0.58 X10 3/uL Low 0.83-4.51 [facility] Comment on above: Performed By: #### L 100.0100, L500.2500 ####[facility] [address] [place], [address] Absolute Neut 3.6 X10 3/uL Normal 2.0-7.7 [facility] Comment on above: Performed By: #### L 100.0100, L500.2500 ####[facility] [address] [place], [address] Basophils/100 WBC (Bld) 0.2 % Normal 0-1 [facility] Comment on above: Performed By: #### L 100.0100, L500.2500 ####[facility] [address] [place], [address] Eosinophils/100 WBC (Bld) 0.2 % Normal 0-5 [facility] Comment on above: Performed By: #### L 100.0100, L500.2500 ####[facility] [address] [place], [address] Erythrocyte distribution width (RBC) [Ratio] 15.3 % High 11.6-14.6 [facility] Comment on above: Performed By: #### L 100.0100, L500.2500 ####[facility] [address] [place], [address] Hematocrit (Bld) [Volume fraction] 36.1 % Low 37-47 [facility] Comment on above: Performed By: #### L 100.0100, L500.2500 ####[facility] [address] [place], [address] Hemoglobin (Bld) [Mass/Vol] 11.2 g/dL Low 12.0-15.0 [facility] Comment on above: Performed By: #### L 100.0100, L500.2500 ####[facility] [address] [place], [address] IG% 1.900 High 0.0-0.9 [facility] Comment on above: Result Comment: IG% - Immature Granulocytes (promyelocytes, myelocytes andmetamyelocytes) > 1% indicates that a LEFT SHIFT is Present. Performed By: #### L 100.0100, L500.2500 ####[facility] [address] [place], [address] Lymphocytes/100 WBC (Bld) 12.3 % Low 19-41 [facility] Comment on above: Performed By: #### L 100.0100, L500.2500 ####[facility] [address] [place], [address] MCH (RBC) [Entitic mass] 26.7 pg Low 27.0-32.0 [facility] Comment on above: Performed By: #### L 100.0100, L500.2500 ####[facility] [address] [place], [address] MCHC (RBC) [Mass/Vol] 31.0 g/dL Low 32-36 [facility] Comment on above: Performed By: #### L 100.0100, L500.2500 ####[facility] [address] [place], [address] MCV (RBC) [Entitic vol] 86.2 fL Normal 81-99 [facility] Comment on above: Performed By: #### L 100.0100, L500.2500 ####[facility] [address] [place], [address] Monocytes/100 WBC (Bld) 8.7 % Normal 0-10 [facility] Comment on above: Performed By: #### L 100.0100, L500.2500 ####[facility] [address] [place], [address] Neutrophils/100 WBC (Bld) 76.7 % High 47-70 [facility] Comment on above: Performed By: #### L 100.0100, L500.2500 ####[facility] [address] [place], [address] Nucleated RBC (Bld) [#/Vol] 0 10*3/uL Normal 0-5 [facility] Comment on above: Performed By: #### L 100.0100, L500.2500 ####[facility] [address] [place], [address] Platelet mean volume (Bld) [Entitic vol] 9.4 fL Normal 6.2-12.0 [facility] Comment on above: Performed By: #### L 100.0100, L500.2500 ####[facility] [address] [place], [address] Platelets (Bld) [#/Vol] 131 10*3/uL Low 150-450 [facility] Comment on above: Performed By: #### L 100.0100, L500.2500 ####[facility] [address] [place], [address] RBC (Bld) [#/Vol] 4.19 10*6/uL Low 4.2-5.4 [facility] Comment on above: Performed By: #### L 100.0100, L500.2500 ####[facility] [address] [place], [address] RDW SD 48.4 fl High 35.1-43.9 [facility] Comment on above: Performed By: #### L 100.0100, L500.2500 ####[facility] [address] [place], [address] WBC (Bld) [#/Vol] 4.7 10*3/uL Normal 4.4-11.0 [facility] Comment on above: Performed By: #### L 100.0100, L500.2500 ####[facility] [address] [place], [address] Extremity Lower WITH Contras ton 05-06-2024 Extremity Lower WITH Contrast Normal [facility] Vancomycin, Random Levelon 0 05-06-2024 VANCO, RANDOM 14.0 ug/mL Normal 0.0-15.0 [facility] Comment on above: Result Comment: VANC OMYCIN STANDARD DRUG THERAPY: CRITICAL VALUE IS > 15.0 mg/LVANCOMYCIN HIGH INTENSITY THERAPY: CRITICAL VALUE IS > 20.0 mg/LPLEASE CONTACT PHARMACY SERVICES (#4328) FOR INTERPRETATIONOF RESULTS. THIS RESULT DOES NOT REPRESENT A PEAK OR TROUGHLEVEL FOR THIS DRUG. Performed By: #### L 501.8850 ####[facility] [address] [place], [address] CBC W/Diff, Automatedon 06-0 Absolute Lymph 0.39 X10 3/uL Low 0.83-4.51 [facility] Comment on above: Performed By: #### L 501.5200, L100.0100, L500.4050, L501.2300 ####[facility] [address] [place], [address] Absolute Neut 10.3 X10 3/uL High 2.0-7.7 [facility] Comment on above: Performed By: #### L 501.5200, L100.0100, L500.4050, L501.2300 ####[facility] [address] [place], [address] Basophils/100 WBC (Bld) 0.1 % Normal 0-1 [facility] Comment on above: Performed By: #### L 501.5200, L100.0100, L500.4050, L501.2300 ####[facility] [address] [place], [address] Eosinophils/100 WBC (Bld) 0.0 % Normal 0-5 [facility] Comment on above: Performed By: #### L 501.5200, L100.0100, L500.4050, L501.2300 ####[facility] [address] [place], [address] Erythrocyte distribution width (RBC) [Ratio] 15.3 % High 11.6-14.6 [facility] Comment on above: Performed By: #### L 501.5200, L100.0100, L500.4050, L501.2300 ####[facility] [address] [place], [address] Hematocrit (Bld) [Volume fraction] 38.2 % Normal 37-47 [facility] Comment on above: Performed By: #### L 501.5200, L100.0100, L500.4050, L501.2300 ####[facility] [address] [place], [address] Hemoglobin (Bld) [Mass/Vol] 12.1 g/dL Normal 12.0-15.0 [facility] Comment on above: Performed By: #### L 501.5200, L100.0100, L500.4050, L501.2300 ####[facility] [address] [place], [address] IG% 0.800 Normal 0.0-0.9 [facility] Comment on above: Result Comment: IG% - Immature Granulocytes (promyelocytes, myelocytes andmetamyelocytes) > 1% indicates that a LEFT SHIFT is Present. Performed By: #### L 501.5200, L100.0100, L500.4050, L501.2300 ####[facility] [address] [place], [address] Lymphocytes/100 WBC (Bld) 3.6 % Low 19-41 [facility] Comment on above: Performed By: #### L 501.5200, L100.0100, L500.4050, L501.2300 ####[facility] [address] [place], [address] MCH (RBC) [Entitic mass] 26.9 pg Low 27.0-32.0 [facility] Comment on above: Performed By: #### L 501.5200, L100.0100, L500.4050, L501.2300 ####[facility] [address] [place], [address] MCHC (RBC) [Mass/Vol] 31.7 g/dL Low 32-36 [facility] Comment on above: Performed By: #### L 501.5200, L100.0100, L500.4050, L501.2300 ####[facility] [address] [place], [address] MCV (RBC) [Entitic vol] 84.9 fL Normal 81-99 [facility] Comment on above: Performed By: #### L 501.5200, L100.0100, L500.4050, L501.2300 ####[facility] [address] [place], [address] Monocytes/100 WBC (Bld) 1.7 % Normal 0-10 [facility] Comment on above: Performed By: #### L 501.5200, L100.0100, L500.4050, L501.2300 ####[facility] [address] [place], [address] Neutrophils/100 WBC (Bld) 93.8 % High 47-70 [facility] Comment on above: Performed By: #### L 501.5200, L100.0100, L500.4050, L501.2300 ####[facility] [address] [place], [address] Nucleated RBC (Bld) [#/Vol] 0 10*3/uL Normal 0-5 [facility] Comment on above: Performed By: #### L 501.5200, L100.0100, L500.4050, L501.2300 ####[facility] [address] [place], [address] Platelet mean volume (Bld) [Entitic vol] 9.4 fL Normal 6.2-12.0 [facility] Comment on above: Performed By: #### L 501.5200, L100.0100, L500.4050, L501.2300 ####[facility] [address] [place], [address] Platelets (Bld) [#/Vol] 146 10*3/uL Low 150-450 [facility] Comment on above: Performed By: #### L 501.5200, L100.0100, L500.4050, L501.2300 ####[facility] [address] [place], [address] RBC (Bld) [#/Vol] 4.50 10*6/uL Normal 4.2-5.4 [facility] Comment on above: Performed By: #### L 501.5200, L100.0100, L500.4050, L501.2300 ####[facility] [address] [place], [address] RDW SD 47.5 fl High 35.1-43.9 [facility] Comment on above: Performed By: #### L 501.5200, L100.0100, L500.4050, L501.2300 ####[facility] [address] [place], [address] WBC (Bld) [#/Vol] 10.9 10*3/uL Normal 4.4-11.0 [facility] Comment on above: Performed By: #### L 501.5200, L100.0100, L500.4050, L501.2300 ####[facility] [address] [place], [address] CDIFF (PCR)on 05-05-2024 CDIFF Normal [facility] Comment on above: Performed By: #### M 100.637, M100.0605, M100.6796 ####[facility] [address] [place], [address] Comprehensive Metabolic Prof ilon 05-05-2024 Albumin [Mass/Vol] 2.9 g/dL Low 3.2-5.0 [facility] Comment on above: Performed By: #### L 501.5200, L100.0100, L500.4050, L501.2300 ####[facility] [address] [place], [address] Albumin/Globulin [Mass ratio] 0.7 {ratio} Low 0.9-2.4 [facility] Comment on above: Performed By: #### L 501.5200, L100.0100, L500.4050, L501.2300 ####[facility] [address] [place], [address] ALK P 79 U/L Normal 45-117 [facility] Comment on above: Performed By: #### L 501.5200, L100.0100, L500.4050, L501.2300 ####[facility] [address] [place], [address] ALT [Catalytic activity/Vol] 36 U/L Normal 13-56 [facility] Comment on above: Performed By: #### L 501.5200, L100.0100, L500.4050, L501.2300 ####[facility] [address] [place], [address] AST [Catalytic activity/Vol] 32 U/L Normal 15-37 [facility] Comment on above: Performed By: #### L 501.5200, L100.0100, L500.4050, L501.2300 ####[facility] [address] [place], [address] Bilirubin [Mass/Vol] 0.90 mg/dL Normal 0.20-1.00 [facility] Comment on above: Result Comment: For patients on eltrombopag therapy, use of Dimension [place] TBIL is not recommended. Performed By: #### L 501.5200, L100.0100, L500.4050, L501.2300 ####[facility] [address] [place], [address] BUN/CRE 15.7 RATIO Normal 10-20 [facility] Comment on above: Performed By: #### L 501.5200, L100.0100, L500.4050, L501.2300 ####[facility] [address] [place], [address] CA,Total 8.7 mg/dL Normal 8.5-10.1 [facility] Comment on above: Performed By: #### L 501.5200, L100.0100, L500.4050, L501.2300 ####[facility] [address] [place], [address] Chloride [Moles/Vol] 105 mmol/L Normal 98-107 [facility] Comment on above: Performed By: #### L 501.5200, L100.0100, L500.4050, L501.2300 ####[facility] [address] [place], [address] CO2 [Moles/Vol] 22.0 mmol/L Normal 21.0-32.0 [facility] Comment on above: Performed By: #### L 501.5200, L100.0100, L500.4050, L501.2300 ####[facility] [address] [place], [address] Creatinine [Mass/Vol] 0.96 mg/dL Normal 0.55-1.02 [facility] Comment on above: Result Comment: The validity of the calculated GFR GFRAA in patients over70 years has not been determined. Clinical correlation isessential. Performed By: #### L 501.5200, L100.0100, L500.4050, L501.2300 ####[facility] [address] [place], [address] ECRCL 127.08 ml/min Normal [facility] Comment on above: Performed By: #### L 501.5200, L100.0100, L500.4050, L501.2300 ####[facility] [address] [place], [address] EST GFR - AA 78 mL/min Normal >60 [facility] Comment on above: Result Comment: Afri can Haitian GFR Calc Performed By: #### L 501.5200, L100.0100, L500.4050, L501.2300 ####[facility] [address] [place], [address] GAP 9 Normal 5-15 [facility] Comment on above: Performed By: #### L 501.5200, L100.0100, L500.4050, L501.2300 ####[facility] [address] [place], [address] GFR/1.73 sq M.predicted among non-blacks MDRD (S/P/Bld) [Vol rate/Area] 64 mL/min/{1.73_m2} Normal >60 [facility] Comment on above: Result Comment: Non- GFR Calc Performed By: #### L 501.5200, L100.0100, L500.4050, L501.2300 ####[facility] [address] [place], [address] Globulin (S) [Mass/Vol] 4.0 g/dL Normal 2.2-4.2 [facility] Comment on above: Performed By: #### L 501.5200, L100.0100, L500.4050, L501.2300 ####[facility] [address] [place], [address] Glucose [Mass/Vol] 96 mg/dL Normal 74-106 [facility] Comment on above: Performed By: #### L 501.5200, L100.0100, L500.4050, L501.2300 ####[facility] [address] [place], [address] Potassium [Moles/Vol] 3.8 mmol/L Normal 3.5-5.1 [facility] Comment on above: Performed By: #### L 501.5200, L100.0100, L500.4050, L501.2300 ####[facility] [address] [place], [address] Sodium [Moles/Vol] 136 mmol/L Normal 136-145 [facility] Comment on above: Performed By: #### L 501.5200, L100.0100, L500.4050, L501.2300 ####[facility] [address] [place], [address] T PROT 6.9 g/dL Normal 6.4-8.2 [facility] Comment on above: Performed By: #### L 501.5200, L100.0100, L500.4050, L501.2300 ####[facility] [address] [place], [address] Urea nitrogen [Mass/Vol] 15 mg/dL Normal 7-18 [facility] Comment on above: Performed By: #### L 501.5200, L100.0100, L500.4050, L501.2300 ####[facility] [address] [place], [address] Consultation - Infectious Dx on 05-05-2024 Consultation - Infectious Dx Normal [facility] ENTERIC PATHOGEN PANEL STOOL on 05-05-2024 EP PANEL Normal [facility] Comment on above: Performed By: #### M 100.637, M100.0605, M100.6796 ####[facility] [address] [place], [address] Magnesiumon 05-05-2024 Magnesium [Mass/Vol] 1.6 mg/dL Normal 1.6-2.6 [facility] Comment on above: Performed By: #### L 501.5200, L100.0100, L500.4050, L501.2300 ####[facility] [address] [place], [address] Phosphoruson 05-05-2024 Phosphate [Mass/Vol] 3.0 mg/dL Normal 2.5-4.9 [facility] Comment on above: Performed By: #### L 501.5200, L100.0100, L500.4050, L501.2300 ####[facility] [address] [place], [address] Procedure Reporton Procedure Report Normal [facility] Stool Lactoferrin/WBCon WBCST Is the patient recei ving laxatives? N New/unexplained onset of 3 or more stools in past 24 hrs? N prior to this stool, last bm was 6/4 Normal Reference Range = Negative Fecal WBC Lactoferrin Negative: No Fecal WBC Lactoferrin present Normal [facility] Comment on above: Performed By: #### M 100.637, M100.0605, M100.6796 ####[facility] [address] [place], [address] Vancomycin, Trough Levelon 0 6-06-2024 VANCO, TROUGH 23.7 ug/mL High 5.0-15.0 [facility] Comment on above: Order Comment: Comme nts: Trough to be drawn 30 mins prior to scheduled [id number] Result Comment: VANC OMYCIN STANDARED DRUG THERAPY TROUGH LEVEL: 5.0 - 15.0 mg/LVANCOMYCIN HIGH INTENSITY THERAPY TROUGH LEVEL: 15.0 - 20.0 mg/LHigh Intensity therapy recommended for serious lifethreatening infections include:- Kpglypagjw-Iuikdhoipkwc-Nqgrzajfo (Ventilator/Healtcare Associated)-SepsisPLEASE CONTACT PHARMACY SERVICES (#5115) FOR INTERPRETATIONOF RESULTS. Performed By: #### L 501.8820 ####[facility] [address] [place], [address] Basic Metabolic Profile (BMP )on 05-04-2024 BUN/CRE 18.2 RATIO Normal 10-20 [facility] Comment on above: Performed By: #### L 100.0100, L503.6005, L500.2500 ####[facility] [address] [place], [address] CA,Total 9.3 mg/dL Normal 8.5-10.1 [facility] Comment on above: Performed By: #### L 100.0100, L503.6005, L500.2500 ####[facility] [address] [place], [address] Chloride [Moles/Vol] 100 mmol/L Normal 98-107 [facility] Comment on above: Performed By: #### L 100.0100, L503.6005, L500.2500 ####[facility] [address] [place], [address] CO2 [Moles/Vol] 26.0 mmol/L Normal 21.0-32.0 [facility] Comment on above: Performed By: #### L 100.0100, L503.6005, L500.2500 ####[facility] [address] [place], [address] Creatinine [Mass/Vol] 0.99 mg/dL Normal 0.55-1.02 [facility] Comment on above: Result Comment: The validity of the calculated GFR GFRAA in patients over70 years has not been determined. Clinical correlation isessential. Performed By: #### L 100.0100, L503.6005, L500.2500 ####[facility] [address] [place], [address] ECRCL 124.61 ml/min Normal [facility] Comment on above: Performed By: #### L 100.0100, L503.6005, L500.2500 ####[facility] [address] [place], [address] EST GFR - AA 75 mL/min Normal >60 [facility] Comment on above: Result Comment: Afri can Haitian GFR Calc Performed By: #### L 100.0100, L503.6005, L500.2500 ####[facility] [address] [place], [address] GAP 7 Normal 5-15 [facility] Comment on above: Performed By: #### L 100.0100, L503.6005, L500.2500 ####[facility] [address] [place], [address] GFR/1.73 sq M.predicted among non-blacks MDRD (S/P/Bld) [Vol rate/Area] 62 mL/min/{1.73_m2} Normal >60 [facility] Comment on above: Result Comment: Non- GFR Calc Performed By: #### L 100.0100, L503.6005, L500.2500 ####[facility] [address] [place], [address] Glucose [Mass/Vol] 116 mg/dL High 74-106 [facility] Comment on above: Result Comment: Fast ing Glucose result from 100 to 125 mg/dLsuggests IMPAIRED HOMEOSTASIS per A.D.A. criteria. Performed By: #### L 100.0100, L503.6005, L500.2500 ####[facility] [address] [place], [address] Potassium [Moles/Vol] 4.5 mmol/L Normal 3.5-5.1 [facility] Comment on above: Performed By: #### L 100.0100, L503.6005, L500.2500 ####[facility] [address] [place], [address] Sodium [Moles/Vol] 133 mmol/L Low 136-145 [facility] Comment on above: Performed By: #### L 100.0100, L503.6005, L500.2500 ####[facility] [address] [place], [address] Urea nitrogen [Mass/Vol] 18 mg/dL Normal 7-18 [facility] Comment on above: Performed By: #### L 100.0100, L503.6005, L500.2500 ####[facility] [address] [place], [address] CBC W/Diff, Automatedon 06-0 5-2024 Absolute Lymph 0.29 X10 3/uL Low 0.83-4.51 [facility] Comment on above: Performed By: #### L 100.0100, L503.6005, L500.2500 ####[facility] [address] [place], [address] Absolute Neut 18.2 X10 3/uL High 2.0-7.7 [facility] Comment on above: Performed By: #### L 100.0100, L503.6005, L500.2500 ####[facility] [address] [place], [address] Basophils/100 WBC (Bld) 0.2 % Normal 0-1 [facility] Comment on above: Performed By: #### L 100.0100, L503.6005, L500.2500 ####[facility] [address] [place], [address] Eosinophils/100 WBC (Bld) 0.0 % Normal 0-5 [facility] Comment on above: Performed By: #### L 100.0100, L503.6005, L500.2500 ####[facility] [address] [place], [address] Erythrocyte distribution width (RBC) [Ratio] 15.0 % High 11.6-14.6 [facility] Comment on above: Performed By: #### L 100.0100, L503.6005, L500.2500 ####[facility] [address] [place], [address] Hematocrit (Bld) [Volume fraction] 39.9 % Normal 37-47 [facility] Comment on above: Performed By: #### L 100.0100, L503.6005, L500.2500 ####[facility] [address] [place], [address] Hemoglobin (Bld) [Mass/Vol] 12.7 g/dL Normal 12.0-15.0 [facility] Comment on above: Performed By: #### L 100.0100, L503.6005, L500.2500 ####[facility] [address] [place], [address] IG% 0.800 Normal 0.0-0.9 [facility] Comment on above: Result Comment: IG% - Immature Granulocytes (promyelocytes, myelocytes andmetamyelocytes) > 1% indicates that a LEFT SHIFT is Present. Performed By: #### L 100.0100, L503.6005, L500.2500 ####[facility] [address] [place], [address] Lymphocytes/100 WBC (Bld) 1.5 % Low 19-41 [facility] Comment on above: Performed By: #### L 100.0100, L503.6005, L500.2500 ####[facility] [address] [place], [address] MCH (RBC) [Entitic mass] 27.3 pg Normal 27.0-32.0 [facility] Comment on above: Performed By: #### L 100.0100, L503.6005, L500.2500 ####[facility] [address] [place], [address] MCHC (RBC) [Mass/Vol] 31.8 g/dL Low 32-36 [facility] Comment on above: Performed By: #### L 100.0100, L503.6005, L500.2500 ####[facility] [address] [place], [address] MCV (RBC) [Entitic vol] 85.8 fL Normal 81-99 [facility] Comment on above: Performed By: #### L 100.0100, L503.6005, L500.2500 ####[facility] [address] [place], [address] Monocytes/100 WBC (Bld) 2.8 % Normal 0-10 [facility] Comment on above: Performed By: #### L 100.0100, L503.6005, L500.2500 ####[facility] [address] [place], [address] Neutrophils/100 WBC (Bld) 94.7 % High 47-70 [facility] Comment on above: Performed By: #### L 100.0100, L503.6005, L500.2500 ####[facility] [address] [place], [address] Nucleated RBC (Bld) [#/Vol] 0 10*3/uL Normal 0-5 [facility] Comment on above: Performed By: #### L 100.0100, L503.6005, L500.2500 ####[facility] [address] [place], [address] Platelet mean volume (Bld) [Entitic vol] 10.0 fL Normal 6.2-12.0 [facility] Comment on above: Performed By: #### L 100.0100, L503.6005, L500.2500 ####[facility] [address] [place], [address] Platelets (Bld) [#/Vol] 160 10*3/uL Normal 150-450 [facility] Comment on above: Performed By: #### L 100.0100, L503.6005, L500.2500 ####[facility] [address] [place], [address] RBC (Bld) [#/Vol] 4.65 10*6/uL Normal 4.2-5.4 [facility] Comment on above: Performed By: #### L 100.0100, L503.6005, L500.2500 ####[facility] [address] [place], [address] RDW SD 46.8 fl High 35.1-43.9 [facility] Comment on above: Performed By: #### L 100.0100, L503.6005, L500.2500 ####[facility] [address] [place], [address] WBC (Bld) [#/Vol] 19.2 10*3/uL High 4.4-11.0 [facility] Comment on above: Performed By: #### L 100.0100, L503.6005, L500.2500 ####[facility] [address] [place], [address] Emergency Department Summary on 05-04-2024 Emergency Department Summary Normal [facility] H AND P Exam - Hospitaliston 05-04-2024 H&P Exam - Hospitalist Normal [facility] Hemoglobin A1con 05-04-2024 HbA1c (Bld) [Mass fraction] 5.8 % High 3.8-5.6 [facility] Comment on above: Result Comment: Norm al < 5.7 % Prediabetic 5.7 - 6.4 % Diabetic >or= 6.5 % Please note range changes. Performed By: #### L 501.9985 ####[facility] [address] [place], [address] Lactic Acidon 05-04-2024 Lactate [Moles/Vol] 1.6 mmol/L Normal 0.4-1.9 [facility] Comment on above: Order Comment: Y Performed By: #### L 100.0100, L503.6005, L500.2500 ####[facility] [address] [place], [address] Culture, Blood (WB)on 2023 CUB R SHOULDER No growth in 5 days. Normal [facility] Comment on above: Performed By: #### L 503.6005, M200.1000, L500.4050 ####[facility] [address] [place], [address] CUB No growth in 5 days. Normal [facility] Comment on above: Performed By: #### M 200.1000 ####[facility] [address] [place], [address] Discharge Instructionon 03-30 Discharge Instruction Normal [facility] Absolute lymphocyte countOrd ered By: Rubin Hadley on 04-07-2024 Lymphocytes Auto (Unsp spec) [#/Vol] 1.06 10*3/uL 0.83-4.51 [facility] Automated lymphocyte count a s percentage of total leukocytesOrdered By: Rubin Hadley on 04-07-2024 Lymphocytes/100 WBC Auto (Unsp spec) 15.1 % 19-41 [facility] Basic Metabolic Profile (BMP )on 04-07-2024 BUN/CRE 15.7 RATIO Normal 10-20 [facility] Comment on above: Performed By: #### L 500.2500, L100.0100 ####[facility] [address] [place], [address] CA,Total 9.6 mg/dL Normal 8.5-10.1 [facility] Comment on above: Performed By: #### L 500.2500, L100.0100 ####[facility] [address] [place], [address] Chloride [Moles/Vol] 103 mmol/L Normal 98-107 [facility] Comment on above: Performed By: #### L 500.2500, L100.0100 ####[facility] [address] [place], [address] CO2 [Moles/Vol] 27.0 mmol/L Normal 21.0-32.0 [facility] Comment on above: Performed By: #### L 500.2500, L100.0100 ####[facility] [address] [place], [address] Creatinine [Mass/Vol] 0.89 mg/dL Normal 0.55-1.02 [facility] Comment on above: Result Comment: The validity of the calculated GFR GFRAA in patients over70 years has not been determined. Clinical correlation isessential. Performed By: #### L 500.2500, L100.0100 ####[facility] [address] [place], [address] ECRCL 139.37 ml/min Normal [facility] Comment on above: Performed By: #### L 500.2500, L100.0100 ####[facility] [address] [place], [address] EST GFR - AA 84 mL/min Normal >60 [facility] Comment on above: Result Comment: Afri can Haitian GFR Calc Performed By: #### L 500.2500, L100.0100 ####[facility] [address] [place], [address] GAP 5 Normal 5-15 [facility] Comment on above: Performed By: #### L 500.2500, L100.0100 ####[facility] [address] [place], [address] GFR/1.73 sq M.predicted among non-blacks MDRD (S/P/Bld) [Vol rate/Area] 69 mL/min/{1.73_m2} Normal >60 [facility] Comment on above: Result Comment: Non- GFR Calc Performed By: #### L 500.2500, L100.0100 ####[facility] [address] [place], [address] Glucose [Mass/Vol] 115 mg/dL High 74-106 [facility] Comment on above: Result Comment: Fast ing Glucose result from 100 to 125 mg/dLsuggests IMPAIRED HOMEOSTASIS per A.D.A. criteria. Performed By: #### L 500.2500, L100.0100 ####[facility] [address] [place], [address] Potassium [Moles/Vol] 4.2 mmol/L Normal 3.5-5.1 [facility] Comment on above: Performed By: #### L 500.2500, L100.0100 ####[facility] [address] [place], [address] Sodium [Moles/Vol] 135 mmol/L Low 136-145 [facility] Comment on above: Performed By: #### L 500.2500, L100.0100 ####[facility] [address] [place], [address] Urea nitrogen [Mass/Vol] 14 mg/dL Normal 7-18 [facility] Comment on above: Performed By: #### L 500.2500, L100.0100 ####[facility] [address] [place], [address] Basophil percentageOrdered B y: Rubin Hadley on 04-07-2024 Basophils/100 WBC (Bld) 0.4 % 0-1 [facility] Chloride [Moles/Vol] 103 mmol/L 98-107 [facility] Eosinophils/100 WBC (Bld) 0.0 % 0-5 [facility] Glucose [Mass/Vol] 115 mg/dL 74-106 [facility] Comment on above: Fasting Glucose resu lt from 100 to 125 mg/dL suggests IMPAIRED HOMEOSTASIS per A.D.A. criteria. Hemoglobin (Bld) [Mass/Vol] 12.7 g/dL 12.0-15.0 [facility] Monocytes/100 WBC (Bld) 11.4 % 0-10 [facility] Neutrophils (Bld) [#/Vol] 5.0 10*3/uL 2.0-7.7 [facility] Neutrophils/100 WBC (Bld) 71.7 % 47-70 [facility] Potassium [Moles/Vol] 4.2 mmol/L 3.5-5.1 [facility] Sodium [Moles/Vol] 135 mmol/L 136-145 [facility] WBC (Bld) [#/Vol] 7.0 10*3/uL 4.4-11.0 [facility] CBC W/Diff, Automatedon Absolute Lymph 1.06 X10 3/uL Normal 0.83-4.51 [facility] Comment on above: Performed By: #### L 500.2500, L100.0100 ####[facility] [address] [place], [address] Absolute Neut 5.0 X10 3/uL Normal 2.0-7.7 [facility] Comment on above: Performed By: #### L 500.2500, L100.0100 ####[facility] [address] [place], [address] Basophils/100 WBC (Bld) 0.4 % Normal 0-1 [facility] Comment on above: Performed By: #### L 500.2500, L100.0100 ####[facility] [address] [place], [address] Eosinophils/100 WBC (Bld) 0.0 % Normal 0-5 [facility] Comment on above: Performed By: #### L 500.2500, L100.0100 ####[facility] [address] [place], [address] Erythrocyte distribution width (RBC) [Ratio] 15.1 % High 11.6-14.6 [facility] Comment on above: Performed By: #### L 500.2500, L100.0100 ####[facility] [address] [place], [address] Hematocrit (Bld) [Volume fraction] 40.7 % Normal 37-47 [facility] Comment on above: Performed By: #### L 500.2500, L100.0100 ####[facility] [address] [place], [address] Hemoglobin (Bld) [Mass/Vol] 12.7 g/dL Normal 12.0-15.0 [facility] Comment on above: Performed By: #### L 500.2500, L100.0100 ####[facility] [address] [place], [address] IG% 1.400 High 0.0-0.9 [facility] Comment on above: Result Comment: IG% - Immature Granulocytes (promyelocytes, myelocytes andmetamyelocytes) > 1% indicates that a LEFT SHIFT is Present. Performed By: #### L 500.2500, L100.0100 ####[facility] [address] [place], [address] Lymphocytes/100 WBC (Bld) 15.1 % Low 19-41 [facility] Comment on above: Performed By: #### L 500.2500, L100.0100 ####[facility] [address] [place], [address] MCH (RBC) [Entitic mass] 26.6 pg Low 27.0-32.0 [facility] Comment on above: Performed By: #### L 500.2500, L100.0100 ####[facility] [address] [place], [address] MCHC (RBC) [Mass/Vol] 31.2 g/dL Low 32-36 [facility] Comment on above: Performed By: #### L 500.2500, L100.0100 ####[facility] [address] [place], [address] MCV (RBC) [Entitic vol] 85.3 fL Normal 81-99 [facility] Comment on above: Performed By: #### L 500.2500, L100.0100 ####[facility] [address] [place], [address] Monocytes/100 WBC (Bld) 11.4 % High 0-10 [facility] Comment on above: Performed By: #### L 500.2500, L100.0100 ####[facility] [address] [place], [address] Neutrophils/100 WBC (Bld) 71.7 % High 47-70 [facility] Comment on above: Performed By: #### L 500.2500, L100.0100 ####[facility] [address] [place], [address] Nucleated RBC (Bld) [#/Vol] 0 10*3/uL Normal 0-5 [facility] Comment on above: Performed By: #### L 500.2500, L100.0100 ####[facility] [address] [place], [address] Platelet mean volume (Bld) [Entitic vol] 9.8 fL Normal 6.2-12.0 [facility] Comment on above: Performed By: #### L 500.2500, L100.0100 ####[facility] [facility] [address] [place], [address] Platelets (Bld) [#/Vol] 191 10*3/uL Normal 150-450 [facility] Comment on above: Performed By: #### L 500.2500, L100.0100 ####[facility] [address] [place], [address] RBC (Bld) [#/Vol] 4.77 10*6/uL Normal 4.2-5.4 [facility] Comment on above: Performed By: #### L 500.2500, L100.0100 ####[facility] [address] [place], [address] RDW SD 47.2 fl High 35.1-43.9 [facility] Comment on above: Performed By: #### L 500.2500, L100.0100 ####[facility] [address] [place], [address] WBC (Bld) [#/Vol] 7.0 10*3/uL Normal 4.4-11.0 [facility] Comment on above: Performed By: #### L 500.2500, L100.0100 ####[facility] [address] [place], [address] Determination of erythrocyte mean corpuscular volume (MCV)Ordered By: Rubin Hadley on 04-07-2024 MCV (RBC) [Entitic vol] 85.3 fL 81-99 [facility] Erythrocyte distribution wid th ratioOrdered By: Rubin Hadley on 04-07-2024 Erythrocyte distribution width (RBC) [Ratio] 15.1 % 11.6-14.6 [facility] Erythrocyte distribution wid th standard deviationOrdered By: Rubin Hadley on 04-07-2024 Erythrocyte distribution width (RBC) [Entitic vol] 47.2 fL 35.1-43.9 [facility] Hematocrit Auto (Bld) [Volum e fraction]Ordered By: Rubin Hadley on 04-07-2024 Hematocrit (Bld) [Volume fraction] 40.7 % 37-47 [facility] Immature granulocytes/100 WB C Auto (Bld)Ordered By: Rubin Hadley on 04-07-2024 Immature granulocytes/100 WBC (Bld) 1.400 % 0.0-0.9 [facility] Comment on above: IG% - Immature Granu locytes (promyelocytes, myelocytes and metamyelocytes) > 1% indicates that a LEFT SHIFT is Present. Laboratory - Chemistry and C hemistry - challengeOrdered By: Rubin Hadley on 04-07-2024 CO2 [Moles/Vol] 27.0 mmol/L 21.0-32.0 [facility] Urea nitrogen/Creatinine [Mass ratio] 15.7 mg/mg 10-20 [facility] Laboratory - Hematology and Cell countsOrdered By: Rubin Hadley on 04-07-2024 MCH (RBC) [Entitic mass] 26.6 pg 27.0-32.0 [facility] MCHC (RBC) [Mass/Vol] 31.2 g/dL 32-36 [facility] Nucleated RBC/100 WBC (Bld) [Ratio] 0 % 0-5 [facility] Platelet mean volume (Bld) [Entitic vol] 9.8 fL 6.2-12.0 [facility] Platelets (Bld) [#/Vol] 191 10*3/uL 150-450 [facility] M R Staph Aureus DNA by PCRo n 04-07-2024 MRSA DNA ASSAY Negative Normal Negative [facility] Comment on above: Performed By: #### L 8200.1000 ####[facility] [address] [place], [place], [id number] No Panel InformationOrdered By: Rubin Hadley on 04-07-2024 Methicillin-Resist S.aureus DNA PCR Negative Negative [facility] Estimated Creatinine Clearance Calc 139.37 ml/min [facility] Estimated GFR (MDRD) Amer 84 mL/min >60 [facility] Comment on above: GFR Calc Estimated GFR (MDRD) Non-Af Amer 69 mL/min >60 [facility] Comment on above: Non- GFR Calc RBC Auto (Bld) [#/Vol]Ordere d By: Rubin Hadley on 04-07-2024 RBC (Bld) [#/Vol] 4.77 10*6/uL 4.2-5.4 [facility] Serum or plasma calcium herson urement (mass/volume)Ordered By: Rubin Hadley on 04-07-2024 Calcium [Mass/Vol] 9.6 mg/dL 8.5-10.1 [facility] Serum or plasma creatinine m easurement (mass/volume)Ordered By: Rubin Hadley on 04-07-2024 Creatinine [Mass/Vol] 0.89 mg/dL 0.55-1.02 [facility] Comment on above: The validity of the calculated GFR & GFRAA in patients over 70 years has not been determined. Clinical correlation is essential. Serum or plasma urea nitroge n measurement (mass/volume)Ordered By: Rubin Hadley on 04-07-2024 Urea nitrogen [Mass/Vol] 14 mg/dL 7-18 [facility] Thin prep Papanicolaou smear with manual screeningOrdered By: Rubin Hadley on 04-07-2024 Thin prep Papanicolaou smear with manual screening 5 5-15 [facility] Basic Metabolic Profile (BMP )on 04-06-2024 BUN/CRE 18.1 RATIO Normal 10-20 [facility] Comment on above: Performed By: #### L 100.0100, L500.2500 ####[facility] [address] [place], [address] CA,Total 9.0 mg/dL Normal 8.5-10.1 [facility] Comment on above: Performed By: #### L 100.0100, L500.2500 ####[facility] [address] [place], [address] Chloride [Moles/Vol] 106 mmol/L Normal 98-107 [facility] Comment on above: Performed By: #### L 100.0100, L500.2500 ####[facility] [address] [place], [address] CO2 [Moles/Vol] 27.0 mmol/L Normal 21.0-32.0 [facility] Comment on above: Performed By: #### L 100.0100, L500.2500 ####[facility] [address] [place], [address] Creatinine [Mass/Vol] 0.72 mg/dL Normal 0.55-1.02 [facility] Comment on above: Result Comment: The validity of the calculated GFR GFRAA in patients over70 years has not been determined. Clinical correlation isessential. Performed By: #### L 100.0100, L500.2500 ####[facility] [address] [place], [address] ECRCL 172.27 ml/min Normal [facility] Comment on above: Performed By: #### L 100.0100, L500.2500 ####[facility] [address] [place], [address] EST GFR - AA 108 mL/min Normal >60 [facility] Comment on above: Result Comment: Afri can Haitian GFR Calc Performed By: #### L 100.0100, L500.2500 ####[facility] [address] [place], [address] GAP 5 Normal 5-15 [facility] Comment on above: Performed By: #### L 100.0100, L500.2500 ####[facility] [address] [place], [address] GFR/1.73 sq M.predicted among non-blacks MDRD (S/P/Bld) [Vol rate/Area] 89 mL/min/{1.73_m2} Normal >60 [facility] Comment on above: Result Comment: Non- GFR Calc Performed By: #### L 100.0100, L500.2500 ####[facility] [address] [place], [address] Glucose [Mass/Vol] 98 mg/dL Normal 74-106 [facility] Comment on above: Performed By: #### L 100.0100, L500.2500 ####[facility] [address] [place], [address] Potassium [Moles/Vol] 4.1 mmol/L Normal 3.5-5.1 [facility] Comment on above: Performed By: #### L 100.0100, L500.2500 ####[facility] [address] [place], [address] Sodium [Moles/Vol] 138 mmol/L Normal 136-145 [facility] Comment on above: Performed By: #### L 100.0100, L500.2500 ####[facility] [address] [place], [address] Urea nitrogen [Mass/Vol] 13 mg/dL Normal 7-18 [facility] Comment on above: Performed By: #### L 100.0100, L500.2500 ####[facility] [address] [place], [address] CBC W/Diff, Automatedon 05-0 8-2024 Absolute Lymph 0.60 X10 3/uL Low 0.83-4.51 [facility] Comment on above: Order Comment: REDRA W. PREVIOUS SPECIMEN REJECTED DUE TOQNS. 04/06/24916 Adali Pratt. Performed By: #### L 100.0100 ####[facility] [address] [place], [address] Absolute Neut 3.7 X10 3/uL Normal 2.0-7.7 [facility] Comment on above: Order Comment: REDRA W. PREVIOUS SPECIMEN REJECTED DUE TOQNS. 04/06/24916 Adali Pratt. Performed By: #### L 100.0100 ####[facility] [address] [place], [address] Basophils/100 WBC (Bld) 0.2 % Normal 0-1 [facility] Comment on above: Order Comment: REDRA W. PREVIOUS SPECIMEN REJECTED DUE TOQNS. 04/06/24 0917 Adali Pratt. Performed By: #### L 100.0100 ####[facility] [address] [place], [address] Eosinophils/100 WBC (Bld) 0.2 % Normal 0-5 [facility] Comment on above: Order Comment: REDRA W. PREVIOUS SPECIMEN REJECTED DUE TOQNS. 04/06/2417 Adali Pratt. Performed By: #### L 100.0100 ####[facility] [address] [place], [address] Erythrocyte distribution width (RBC) [Ratio] 15.5 % High 11.6-14.6 [facility] Comment on above: Order Comment: REDRA W. PREVIOUS SPECIMEN REJECTED DUE TOQNS. 04/06/24 0917 Adali Pratt. Performed By: #### L 100.0100 ####[facility] [address] [place], [address] Hematocrit (Bld) [Volume fraction] 39.7 % Normal 37-47 [facility] Comment on above: Order Comment: REDRA W. PREVIOUS SPECIMEN REJECTED DUE TOQNS. 04/06/2417 Adali Pratt. Performed By: #### L 100.0100 ####[facility] [address] [place], [address] Hemoglobin (Bld) [Mass/Vol] 12.0 g/dL Normal 12.0-15.0 [facility] Comment on above: Order Comment: REDRA W. PREVIOUS SPECIMEN REJECTED DUE TOQNS. 04/06/24 0917 Adali Pratt. Performed By: #### L 100.0100 ####[facility] [address] [place], [address] IG% 1.000 High 0.0-0.9 [facility] Comment on above: Order Comment: REDRA W. PREVIOUS SPECIMEN REJECTED DUE TOQNS. 04/06/24 0917 Adali Pratt. Result Comment: IG% - Immature Granulocytes (promyelocytes, myelocytes andmetamyelocytes) > 1% indicates that a LEFT SHIFT is Present. Performed By: #### L 100.0100 ####[facility] [address] [place], [address] Lymphocytes/100 WBC (Bld) 12.2 % Low 19-41 [facility] Comment on above: Order Comment: REDRA W. PREVIOUS SPECIMEN REJECTED DUE TOQNS. 04/06/24916 Adali Pratt. Performed By: #### L 100.0100 ####[facility] [address] [place], [address] MCH (RBC) [Entitic mass] 26.3 pg Low 27.0-32.0 [facility] Comment on above: Order Comment: REDRA W. PREVIOUS SPECIMEN REJECTED DUE TOQNS. 04/06/2417 Adali Pratt. Performed By: #### L 100.0100 ####[facility] [address] [place], [address] MCHC (RBC) [Mass/Vol] 30.2 g/dL Low 32-36 [facility] Comment on above: Order Comment: REDRA W. PREVIOUS SPECIMEN REJECTED DUE TOQNS. 04/06/2417 Adali Pratt. Performed By: #### L 100.0100 ####[facility] [address] [place], [address] MCV (RBC) [Entitic vol] 87.1 fL Normal 81-99 [facility] Comment on above: Order Comment: REDRA W. PREVIOUS SPECIMEN REJECTED DUE TOQNS. 04/06/2417 Adali Pratt. Performed By: #### L 100.0100 ####[facility] [address] [place], [address] Monocytes/100 WBC (Bld) 10.8 % High 0-10 [facility] Comment on above: Order Comment: REDRA W. PREVIOUS SPECIMEN REJECTED DUE TOQNS. 04/06/24 0917 Adali Pratt. Performed By: #### L 100.0100 ####[facility] [address] [place], [address] Neutrophils/100 WBC (Bld) 75.6 % High 47-70 [facility] Comment on above: Order Comment: REDRA W. PREVIOUS SPECIMEN REJECTED DUE TOQNS. 04/06/24 0917 Adali Pratt. Performed By: #### L 100.0100 ####[facility] [address] [place], [address] Nucleated RBC (Bld) [#/Vol] 0 10*3/uL Normal 0-5 [facility] Comment on above: Order Comment: REDRA W. PREVIOUS SPECIMEN REJECTED DUE TOQNS. 04/06/24 0917 Adali Pratt. Performed By: #### L 100.0100 ####[facility] [address] [place], [address] Platelet mean volume (Bld) [Entitic vol] 9.5 fL Normal 6.2-12.0 [facility] Comment on above: Order Comment: REDRA W. PREVIOUS SPECIMEN REJECTED DUE TOQNS. 04/06/24 0917 Adali Pratt. Performed By: #### L 100.0100 ####[facility] [address] [place], [address] Platelets (Bld) [#/Vol] 140 10*3/uL Low 150-450 [facility] Comment on above: Order Comment: REDRA W. PREVIOUS SPECIMEN REJECTED DUE TOQNS. 04/06/24 0917 Adali Pratt. Performed By: #### L 100.0100 ####[facility] [address] [place], [address] RBC (Bld) [#/Vol] 4.56 10*6/uL Normal 4.2-5.4 [facility] Comment on above: Order Comment: REDRA W. PREVIOUS SPECIMEN REJECTED DUE TOQNS. 04/06/2417 Adali Pratt. Performed By: #### L 100.0100 ####[facility] [address] [place], [address] RDW SD 49.1 fl High 35.1-43.9 [facility] Comment on above: Order Comment: REDRA W. PREVIOUS SPECIMEN REJECTED DUE TOQNS. 04/06/2417 Adali Pratt. Performed By: #### L 100.0100 ####[facility] [address] [place], [address] WBC (Bld) [#/Vol] 4.9 10*3/uL Normal 4.4-11.0 [facility] Comment on above: Order Comment: REDRA W. PREVIOUS SPECIMEN REJECTED DUE TOQNS. 04/06/2417 Adali Pratt. Performed By: #### L 100.0100 ####[facility] [address] [place], [address] Absolute Neut Normal 2.0-7.7 [facility] Comment on above: Result Comment: This specimen has been REJECTED due to Laboratory criteria:Quanity Not Sufficient.NEYDA has been notified of need of recollection.04/06/2416 Adalidaria Pratt Performed By: #### L 100.0100, L500.2500 ####[facility] [address] [place], [address] HCT Normal 37-47 [facility] Comment on above: Result Comment: This specimen has been REJECTED due to Laboratory criteria:Quanity Not Sufficient.NEYDA has been notified of need of recollection.04/06/2416 Adalidaria Pratt Performed By: #### L 100.0100, L500.2500 ####[facility] [address] [place], [address] HGB Normal 12.0-15.0 [facility] Comment on above: Result Comment: This specimen has been REJECTED due to Laboratory criteria:Quanity Not Sufficient.NEYDA has been notified of need of recollection.04/06/24915 Adali Pratt Performed By: #### L 100.0100, L500.2500 ####[facility] [address] [place], [address] MCH Normal 27.0-32.0 [facility] Comment on above: Result Comment: This specimen has been REJECTED due to Laboratory criteria:Quanity Not Sufficient.NEYDA has been notified of need of recollection.04/06/24915 Adali Pratt Performed By: #### L 100.0100, L500.2500 ####[facility] [address] [place], [address] MCHC Normal 32-36 [facility] Comment on above: Result Comment: This specimen has been REJECTED due to Laboratory criteria:Quanity Not Sufficient.NEYDA has been notified of need of recollection.04/06/24915 Adali Pratt Performed By: #### L 100.0100, L500.2500 ####[facility] [address] [place], [address] MCV Normal 81-99 [facility] Comment on above: Result Comment: This specimen has been REJECTED due to Laboratory criteria:Quanity Not Sufficient.NEYDA has been notified of need of recollection.04/06/2416 Adali Pratt Performed By: #### L 100.0100, L500.2500 ####[facility] [address] [place], [address] NEUT% Normal 47-70 [facility] Comment on above: Result Comment: This specimen has been REJECTED due to Laboratory criteria:Quanity Not Sufficient.NEYDA has been notified of need of recollection.04/06/2416 Adali Pratt Performed By: #### L 100.0100, L500.2500 ####[facility] [address] [place], [address] PLT Normal 150-450 [facility] Comment on above: Result Comment: This specimen has been REJECTED due to Laboratory criteria:Quanity Not Sufficient.NEYDA has been notified of need of recollection.04/06/24915 Adali Pratt Performed By: #### L 100.0100, L500.2500 ####[facility] [address] [place], [address] RBC Normal 4.2-5.4 [facility] Comment on above: Result Comment: This specimen has been REJECTED due to Laboratory criteria:Quanity Not Sufficient.NEYDA has been notified of need of recollection.04/06/24915 Adali Pratt Performed By: #### L 100.0100, L500.2500 ####[facility] [address] [place], [address] RDW CV Normal 11.6-14.6 [facility] Comment on above: Result Comment: This specimen has been REJECTED due to Laboratory criteria:Quanity Not Sufficient.NEYDA has been notified of need of recollection.04/06/2416 Adali Pratt Performed By: #### L 100.0100, L500.2500 ####[facility] [address] [place], [address] RDW SD Normal 35.1-43.9 [facility] Comment on above: Result Comment: This specimen has been REJECTED due to Laboratory criteria:Quanity Not Sufficient.NEYDA has been notified of need of recollection.04/06/24915 Adali Pratt Performed By: #### L 100.0100, L500.2500 ####[facility] [address] [place], [address] WBC Normal 4.4-11.0 [facility] Comment on above: Result Comment: This specimen has been REJECTED due to Laboratory criteria:Quanity Not Sufficient.NEYDA has been notified of need of recollection.04/06/24 0916 Adali Pratt Performed By: #### L 100.0100, L500.2500 ####[facility] [address] [place], [place], [id number] Consultation - Infectious Dx on 04-06-2024 Consultation - Infectious Dx Normal [facility] Serum or plasma trough vanco mycin levelOrdered By: Calderon Swanson on 04-05-2024 Vancomycin trough [Mass/Vol] 18.5 ug/mL 5.0-15.0 [facility] Comment on above: VANCOMYCIN STANDARED DRUG THERAPY TROUGH LEVEL: 5.0 - 15.0 mg/L VANCOMYCIN HIGH INTENSITY THERAPY TROUGH LEVEL: 15.0 - 20.0 mg/L High Intensity therapy recommended for serious lifethreatening infections include:- Vdfanvlwwv-Hnadkkfjpztc-Ghffiyzto (Ventilator/Healtcare Associated)-Sepsis PLEASE CONTACT PHARMACY SERVICES (#[id number]) FOR INTERPRETATIONOF RESULTS. Vancomycin, Trough Levelon 0 04-05-2024 VANCO, TROUGH 18.5 ug/mL High 5.0-15.0 [facility] Comment on above: Order Comment: Comme nts: Trough to be drawn 30 mins prior to scheduled [id number] Result Comment: VANC OMYCIN STANDARED DRUG THERAPY TROUGH LEVEL: 5.0 - 15.0 mg/LVANCOMYCIN HIGH INTENSITY THERAPY TROUGH LEVEL: 15.0 - 20.0 mg/LHigh Intensity therapy recommended for serious lifethreatening infections include:- Ndysfwnhlw-Oqajgynhxcew-Zzdmahghz (Ventilator/Healtcare Associated)-SepsisPLEASE CONTACT PHARMACY SERVICES (#[id number]) FOR INTERPRETATIONOF RESULTS. Performed By: #### L 501.8820 ####[facility] [address] [place], [place], [address] Venous Duplex US - Yariel Extre mon 04-05-2024 Venous Duplex US - Yariel Extrem Normal [facility] Absolute lymphocyte countOrd ered By: Gian Villanueva on 04-04-2024 Lymphocytes Auto (Unsp spec) [#/Vol] 0.41 10*3/uL 0.83-4.51 [facility] Automated lymphocyte count a s percentage of total leukocytesOrdered By: Gian Villanueva on 04-04-2024 Lymphocytes/100 WBC Auto (Unsp spec) 2.6 % 19-41 [facility] Basophil percentageOrdered B y: Gian Villanueva on 04-04-2024 Basophils/100 WBC (Bld) 0.1 % 0-1 [facility] Bilirubin [Mass/Vol] 0.60 mg/dL 0.20-1.00 [facility] Comment on above: For patients on eltr ombopag therapy, use of Dimension [place] TBIL is not recommended. Chloride [Moles/Vol] 101 mmol/L 98-107 [facility] Eosinophils/100 WBC (Bld) 0.0 % 0-5 [facility] Glucose [Mass/Vol] 113 mg/dL 74-106 [facility] Comment on above: Fasting Glucose resu lt from 100 to 125 mg/dL suggests IMPAIRED HOMEOSTASIS per A.D.A. criteria. Hemoglobin (Bld) [Mass/Vol] 12.4 g/dL 12.0-15.0 [facility] Lactate [Moles/Vol] 1.4 mmol/L 0.4-2.0 [facility] Monocytes/100 WBC (Bld) 5.0 % 0-10 [facility] Neutrophils (Bld) [#/Vol] 14.3 10*3/uL 2.0-7.7 [facility] Neutrophils/100 WBC (Bld) 91.5 % 47-70 [facility] Potassium [Moles/Vol] 4.6 mmol/L 3.5-5.1 [facility] Protein [Mass/Vol] 7.6 g/dL 6.4-8.2 [facility] Sodium [Moles/Vol] 135 mmol/L 136-145 [facility] WBC (Bld) [#/Vol] 15.7 10*3/uL 4.4-11.0 [facility] Blood manual differential co mment interpretation (narrative result)Ordered By: Gian Villanueva on 04-04-2024 Manual differential comment Terry (Bld) [Interp] SCANNED [facility] Comment on above: LYMPHOPENIA NOTED CBC W/Diff, Automatedon SMEAR COMMENT SCANNED Normal [facility] Comment on above: Result Comment: LYMP HOPENIA NOTED Performed By: #### L 100.0100 ####[facility] [address] [place], [address] Comprehensive Metabolic Prof ilon 04-04-2024 Albumin [Mass/Vol] 3.3 g/dL Normal 3.2-5.0 [facility] Comment on above: Performed By: #### L 503.6005, M200.1000, L500.4050 ####[facility] [address] [place], [address] Albumin/Globulin [Mass ratio] 0.8 {ratio} Low 0.9-2.4 [facility] Comment on above: Performed By: #### L 503.6005, M200.1000, L500.4050 ####[facility] [address] [place], [address] ALK P 76 U/L Normal 45-117 [facility] Comment on above: Performed By: #### L 503.6005, M200.1000, L500.4050 ####[facility] [address] [place], [address] ALT [Catalytic activity/Vol] 24 U/L Normal 13-56 [facility] Comment on above: Performed By: #### L 503.6005, M200.1000, L500.4050 ####[facility] [address] [place], [address] AST [Catalytic activity/Vol] 26 U/L Normal 15-37 [facility] Comment on above: Performed By: #### L 503.6005, M200.1000, L500.4050 ####[facility] [address] [place], [address] Bilirubin [Mass/Vol] 0.60 mg/dL Normal 0.20-1.00 [facility] Comment on above: Result Comment: For patients on eltrombopag therapy, use of Dimension [place] TBIL is not recommended. Performed By: #### L 503.6005, M200.1000, L500.4050 ####[facility] [address] [place], [address] BUN/CRE 20.0 RATIO Normal 10-20 [facility] Comment on above: Performed By: #### L 503.6005, M200.1000, L500.4050 ####[facility] [address] [place], [address] CA,Total 9.1 mg/dL Normal 8.5-10.1 [facility] Comment on above: Performed By: #### L 503.6005, M200.1000, L500.4050 ####[facility] [address] [place], [address] Chloride [Moles/Vol] 101 mmol/L Normal 98-107 [facility] Comment on above: Performed By: #### L 503.6005, M200.1000, [id number] ####[facility] [address] [place], [address] CO2 [Moles/Vol] 29.0 mmol/L Normal 21.0-32.0 [facility] Comment on above: Performed By: #### L 503.6005, M200.1000, L500.4050 ####[facility] [address] [place], [address] Creatinine [Mass/Vol] 1.05 mg/dL High 0.55-1.02 [facility] Comment on above: Result Comment: The validity of the calculated GFR GFRAA in patients over70 years has not been determined. Clinical correlation isessential. Performed By: #### L 503.6005, M200.1000, L500.4050 ####[facility] [address] [place], [address] ECRCL 118.07 ml/min Normal [facility] Comment on above: Performed By: #### L 503.6005, M200.1000, L500.4050 ####[facility] [address] [place], [address] EST GFR - AA 70 mL/min Normal >60 [facility] Comment on above: Result Comment: Afri can Haitian GFR Calc Performed By: #### L 503.6005, M200.1000, L500.4050 ####[facility] [address] [place], [address] GAP 5 Normal 5-15 [facility] Comment on above: Performed By: #### L 503.6005, M200.1000, [id number] ####[facility] [address] [place], [address] GFR/1.73 sq M.predicted among non-blacks MDRD (S/P/Bld) [Vol rate/Area] 58 mL/min/{1.73_m2} Low >60 [facility] Comment on above: Result Comment: Non- GFR Calc Performed By: #### L 503.6005, M200.1000, L500.4050 ####[facility] [address] [place], [address] Globulin (S) [Mass/Vol] 4.3 g/dL High 2.2-4.2 [facility] Comment on above: Performed By: #### L 503.6005, M200.1000, L500.4050 ####[facility] [address] [place], [address] Glucose [Mass/Vol] 113 mg/dL High 74-106 [facility] Comment on above: Result Comment: Fast ing Glucose result from 100 to 125 mg/dLsuggests IMPAIRED HOMEOSTASIS per A.D.A. criteria. Performed By: #### L 503.6005, M200.1000, [id number] ####[facility] [address] [place], [address] Potassium [Moles/Vol] 4.6 mmol/L Normal 3.5-5.1 [facility] Comment on above: Performed By: #### L 503.6005, M200.1000, [id number] ####[facility] [address] [place], [address] Sodium [Moles/Vol] 135 mmol/L Low 136-145 [facility] Comment on above: Performed By: #### L 503.6005, M200.1000, [id number] ####[facility] [address] [place], [address] T PROT 7.6 g/dL Normal 6.4-8.2 [facility] Comment on above: Performed By: #### L 503.6005, M200.1000, [id number] ####[facility] [address] [place], [address] Urea nitrogen [Mass/Vol] 21 mg/dL High 7-18 [facility] Comment on above: Performed By: #### L 503.6005, M200.1000, [id number] ####[facility] [address] [place], [address] Determination of erythrocyte mean corpuscular volume (MCV)Ordered By: Gian Villanueva on 04-04-2024 MCV (RBC) [Entitic vol] 85.6 fL 81-99 [facility] Emergency Department Summary on 04-04-2024 Emergency Department Summary Normal [facility] Erythrocyte distribution wid th ratioOrdered By: Gian Villanueva on 04-04-2024 Erythrocyte distribution width (RBC) [Ratio] 15.2 % 11.6-14.6 [facility] Erythrocyte distribution wid th standard deviationOrdered By: Gian Villanueva on 04-04-2024 Erythrocyte distribution width (RBC) [Entitic vol] 47.2 fL 35.1-43.9 [facility] H AND P Exam - Hospitaliston 04-04-2024 H&P Exam - Hospitalist Normal [facility] Hematocrit Auto (Bld) [Volum e fraction]Ordered By: Gian Villanueva on 04-04-2024 Hematocrit (Bld) [Volume fraction] 39.1 % 37-47 [facility] Immature granulocytes/100 WB C Auto (Bld)Ordered By: Gian Villanueva on 04-04-2024 Immature granulocytes/100 WBC (Bld) 0.800 % 0.0-0.9 [facility] Comment on above: IG% - Immature Granu locytes (promyelocytes, myelocytes and metamyelocytes) > 1% indicates that a LEFT SHIFT is Present. Laboratory - Chemistry and C hemistry - challengeOrdered By: Gian Villanueva on 04-04-2024 Albumin/Globulin [Mass ratio] 0.8 {ratio} 0.9-2.4 [facility] ALP [Catalytic activity/Vol] 76 U/L 45-117 [facility] ALT [Catalytic activity/Vol] 24 U/L 13-56 [facility] CO2 [Moles/Vol] 29.0 mmol/L 21.0-32.0 [facility] Globulin (S) [Mass/Vol] 4.3 g/dL 2.2-4.2 [facility] Urea nitrogen/Creatinine [Mass ratio] 20.0 mg/mg 10-20 [facility] Laboratory - Hematology and Cell countsOrdered By: Gian Villanueva on 04-04-2024 MCH (RBC) [Entitic mass] 27.1 pg 27.0-32.0 [facility] MCHC (RBC) [Mass/Vol] 31.7 g/dL 32-36 [facility] Nucleated RBC/100 WBC (Bld) [Ratio] 0 % 0-5 [facility] Platelet mean volume (Bld) [Entitic vol] 10.3 fL 6.2-12.0 [facility] Platelets (Bld) [#/Vol] 187 10*3/uL 150-450 [facility] Lactic Acidon 04-04-2024 Lactate [Moles/Vol] 1.4 mmol/L Normal 0.4-1.9 [facility] Comment on above: Order Comment: Y Performed By: #### L 503.6005, M200.1000, L500.4050 ####[facility] [address] [place], [address] No Panel InformationOrdered By: Gian Villanueva on 04-04-2024 Estimated Creatinine Clearance Calc 118.07 ml/min [facility] Estimated GFR (MDRD) Amer 70 mL/min >60 [facility] Comment on above: GFR Calc Estimated GFR (MDRD) Non-Af Amer 58 mL/min >60 [facility] Comment on above: Non- GFR Calc RBC Auto (Bld) [#/Vol]Ordere d By: Gian Villanueva on 04-04-2024 RBC (Bld) [#/Vol] 4.57 10*6/uL 4.2-5.4 [facility] Serum or plasma calcium herson urement (mass/volume)Ordered By: Gian Villanueva on 04-04-2024 Calcium [Mass/Vol] 9.1 mg/dL 8.5-10.1 [facility] Serum or plasma creatinine m easurement (mass/volume)Ordered By: Gian Villanueva on 04-04-2024 Creatinine [Mass/Vol] 1.05 mg/dL 0.55-1.02 [facility] Comment on above: The validity of the calculated GFR & GFRAA in patients over 70 years has not been determined. Clinical correlation is essential. Serum or plasma urea nitroge n measurement (mass/volume)Ordered By: Gian Villanueva on 04-04-2024 Urea nitrogen [Mass/Vol] 21 mg/dL 7-18 [facility] Thin prep Papanicolaou smear with manual screeningOrdered By: Gian Villanueva on 04-04-2024 Thin prep Papanicolaou smear with manual screening 3.3 g/dL 3.2-5.0 [facility] Thin prep Papanicolaou smear with manual screening 26 U/L 15-37 [facility] Thin prep Papanicolaou smear with manual screening 5 5-15 [facility] Office Visiton 09-04-2023 Follow-up visit [id number] Jesusita England 1970 F Date Provider Department Center 09/04/2023 [id number] Family History Problem Relation Age of Onset Other Mother Comments: Alzheimers disease Family Status - Relation Status Age at Mother Father Other Sister Alive Sister Alive Daughter Alive Level of Service:00954 [place] OFFICE/OUTPATIENT NEW MODERATE MDM 45-59 MINUTES Reason for Visit and Comments: Follow-up [133776] - Recurrent cellulitis (est pt, new to Dr. Tavera) [facility] Progress Noteon 09-04-2023 Progress Note Subjective [...] symptoms worsen or fail to improve. Normal [facility] Culture, Blood (WB)on 2022 CUB No growth in 5 days. Normal [facility] Comment on above: Performed By: #### M 200.1000 ####[facility] [address] [place], [address] CUB No growth in 5 days. Normal [facility] Comment on above: Performed By: #### M 200.1000 ####[facility] [address] [place], [address] Absolute lymphocyte countOrd ered By: Calderon Ware on 08-21-2023 Lymphocytes Auto (Unsp spec) [#/Vol] 1.17 10*3/uL 0.83-4.51 [facility] Basic Metabolic Profile (BMP )on 08-21-2023 BUN/CRE 15.9 RATIO Normal 10-20 [facility] Comment on above: Performed By: #### L 100.0100, L500.2500 ####[facility] [address] [place], [address] CA,Total 8.6 mg/dL Normal 8.5-10.1 [facility] Comment on above: Performed By: #### L 100.0100, L500.2500 ####[facility] [address] [place], [address] Chloride [Moles/Vol] 108 mmol/L High 98-107 [facility] Comment on above: Performed By: #### L 100.0100, L500.2500 ####[facility] [address] [place], [address] CO2 [Moles/Vol] 27.0 mmol/L Normal 21.0-32.0 [facility] Comment on above: Performed By: #### L 100.0100, L500.2500 ####[facility] [address] [place], [address] Creatinine [Mass/Vol] 0.69 mg/dL Normal 0.55-1.02 [facility] Comment on above: Result Comment: The validity of the calculated GFR GFRAA in patients over70 years has not been determined. Clinical correlation isessential. Performed By: #### L 100.0100, L500.2500 ####[facility] [address] [place], [address] ECRCL 79.55 ml/min Normal [facility] Comment on above: Performed By: #### L 100.0100, L500.2500 ####[facility] [address] [place], [address] EST GFR - AA 113 mL/min Normal >60 [facility] Comment on above: Result Comment: Afri can Haitian GFR Calc Performed By: #### L 100.0100, L500.2500 ####[facility] [address] [place], [address] GAP 3 Low 5-15 [facility] Comment on above: Performed By: #### L 100.0100, L500.2500 ####[facility] [address] [place], [address] GFR/1.73 sq M.predicted among non-blacks MDRD (S/P/Bld) [Vol rate/Area] 94 mL/min/{1.73_m2} Normal >60 [facility] Comment on above: Result Comment: Non- GFR Calc Performed By: #### L 100.0100, L500.2500 ####[facility] [address] [place], [address] Glucose [Mass/Vol] 108 mg/dL High 74-106 [facility] Comment on above: Result Comment: Fast ing Glucose result from 100 to 125 mg/dLsuggests IMPAIRED HOMEOSTASIS per A.D.A. criteria. Performed By: #### L 100.0100, L500.2500 ####[facility] [address] [place], [address] Potassium [Moles/Vol] 3.9 mmol/L Normal 3.5-5.1 [facility] Comment on above: Performed By: #### L 100.0100, L500.2500 ####[facility] [address] [place], [address] Sodium [Moles/Vol] 138 mmol/L Normal 136-145 [facility] Comment on above: Performed By: #### L 100.0100, L500.2500 ####[facility] [address] [place], [address] Urea nitrogen [Mass/Vol] 11 mg/dL Normal 7-18 [facility] Comment on above: Performed By: #### L 100.0100, L500.2500 ####[facility] [address] [place], [address] Basophil percentageOrdered B y: Calderon Ware on 08-21-2023 Basophils/100 WBC (Bld) 0.2 % 0-1 [facility] Chloride [Moles/Vol] 108 mmol/L 98-107 [facility] Eosinophils/100 WBC (Bld) 0.2 % 0-5 [facility] Glucose [Mass/Vol] 108 mg/dL 74-106 [facility] Comment on above: Fasting Glucose resu lt from 100 to 125 mg/dL suggests IMPAIRED HOMEOSTASIS per A.D.A. criteria. Neutrophils (Bld) [#/Vol] 4.4 10*3/uL 2.0-7.7 [facility] Neutrophils/100 WBC (Bld) 69.7 % 47-70 [facility] Potassium [Moles/Vol] 3.9 mmol/L 3.5-5.1 [facility] Sodium [Moles/Vol] 138 mmol/L 136-145 [facility] WBC (Bld) [#/Vol] 6.3 10*3/uL 4.4-11.0 [facility] Blood erythrocytes count (nu mber/volume)Ordered By: Calderon Ware on 08-21-2023 RBC (Bld) [#/Vol] 3.88 10*6/uL 4.2-5.4 [facility] Blood hemoglobin measurement (mass/volume)Ordered By: Calderon Ware on 08-21-2023 Hemoglobin (Bld) [Mass/Vol] 10.6 g/dL 12.0-15.0 [facility] Blood lymphocytes/100 leukoc ytesOrdered By: Calderon Waer on 08-21-2023 Lymphocytes/100 WBC (Bld) 18.6 % 19-41 [facility] Blood monocytes/100 leukocyt esOrdered By: Calderon Ware on 08-21-2023 Monocytes/100 WBC (Bld) 9.9 % 0-10 [facility] Blood platelet mean volumeOr dered By: Calderon Ware on 08-21-2023 Platelet mean volume (Bld) [Entitic vol] 9.8 fL 6.2-12.0 [facility] CBC W/Diff, Automatedon 08-01 Absolute Lymph 1.17 X10 3/uL Normal 0.83-4.51 [facility] Comment on above: Performed By: #### L 100.0100, L500.2500 ####[facility] [address] [place], [address] Absolute Neut 4.4 X10 3/uL Normal 2.0-7.7 [facility] Comment on above: Performed By: #### L 100.0100, L500.2500 ####[facility] [address] [place], [address] Basophils/100 WBC (Bld) 0.2 % Normal 0-1 [facility] Comment on above: Performed By: #### L 100.0100, L500.2500 ####[facility] [address] [place], [address] Eosinophils/100 WBC (Bld) 0.2 % Normal 0-5 [facility] Comment on above: Performed By: #### L 100.0100, L500.2500 ####[facility] [address] [place], [address] Erythrocyte distribution width (RBC) [Ratio] 15.6 % High 11.6-14.6 [facility] Comment on above: Performed By: #### L 100.0100, L500.2500 ####[facility] [address] [place], [address] Hematocrit (Bld) [Volume fraction] 33.8 % Low 37-47 [facility] Comment on above: Performed By: #### L 100.0100, L500.2500 ####[facility] [address] [place], [address] Hemoglobin (Bld) [Mass/Vol] 10.6 g/dL Low 12.0-15.0 [facility] Comment on above: Performed By: #### L 100.0100, L500.2500 ####[facility] [address] [place], [address] IG% 1.400 High 0.0-0.9 [facility] Comment on above: Result Comment: IG% - Immature Granulocytes (promyelocytes, myelocytes andmetamyelocytes) > 1% indicates that a LEFT SHIFT is Present. Performed By: #### L 100.0100, L500.2500 ####[facility] [address] [place], [address] Lymphocytes/100 WBC (Bld) 18.6 % Low 19-41 [facility] Comment on above: Performed By: #### L 100.0100, L500.2500 ####[facility] [address] [place], [address] MCH (RBC) [Entitic mass] 27.3 pg Normal 27.0-32.0 [facility] Comment on above: Performed By: #### L 100.0100, L500.2500 ####[facility] [address] [place], [address] MCHC (RBC) [Mass/Vol] 31.4 g/dL Low 32-36 [facility] Comment on above: Performed By: #### L 100.0100, L500.2500 ####[facility] [address] [place], [address] MCV (RBC) [Entitic vol] 87.1 fL Normal 81-99 [facility] Comment on above: Performed By: #### L 100.0100, L500.2500 ####[facility] [address] [place], [address] Monocytes/100 WBC (Bld) 9.9 % Normal 0-10 [facility] Comment on above: Performed By: #### L 100.0100, L500.2500 ####[facility] [address] [place], [address] Neutrophils/100 WBC (Bld) 69.7 % Normal 47-70 [facility] Comment on above: Performed By: #### L 100.0100, L500.2500 ####[facility] [address] [place], [address] Nucleated RBC (Bld) [#/Vol] 0 10*3/uL Normal 0-5 [facility] Comment on above: Performed By: #### L 100.0100, L500.2500 ####[facility] [address] [place], [address] Platelet mean volume (Bld) [Entitic vol] 9.8 fL Normal 6.2-12.0 [facility] Comment on above: Performed By: #### L 100.0100, L500.2500 ####[facility] [address] [place], [address] Platelets (Bld) [#/Vol] 165 10*3/uL Normal 150-450 [facility] Comment on above: Performed By: #### L 100.0100, L500.2500 ####[facility] [address] [place], [address] RBC (Bld) [#/Vol] 3.88 10*6/uL Low 4.2-5.4 [facility] Comment on above: Performed By: #### L 100.0100, L500.2500 ####[facility] [address] [place], [address] RDW SD 50.3 fl High 35.1-43.9 [facility] Comment on above: Performed By: #### L 100.0100, L500.2500 ####[facility] [address] [place], [address] WBC (Bld) [#/Vol] 6.3 10*3/uL Normal 4.4-11.0 [facility] Comment on above: Performed By: #### L 100.0100, L500.2500 ####[facility] [address] [place], [address] Determination of erythrocyte mean corpuscular volume (MCV)Ordered By: Calderon Ware on 08-21-2023 MCV (RBC) [Entitic vol] 87.1 fL 81-99 [facility] Hematocrit Auto (Bld) [Volum e fraction]Ordered By: Calderon Ware on 08-21-2023 Hematocrit (Bld) [Volume fraction] 33.8 % 37-47 [facility] Laboratory - Chemistry and C hemistry - challengeOrdered By: Calderon Ware on 08-21-2023 CO2 [Moles/Vol] 27.0 mmol/L 21.0-32.0 [facility] Urea nitrogen/Creatinine [Mass ratio] 15.9 mg/mg 10-20 [facility] Laboratory - Hematology and Cell countsOrdered By: Calderon Ware on 08-21-2023 Erythrocyte distribution width (RBC) [Entitic vol] 50.3 fL 35.1-43.9 [facility] Erythrocyte distribution width (RBC) [Ratio] 15.6 % 11.6-14.6 [facility] Immature granulocytes/100 WBC (Bld) 1.400 % 0.0-0.9 [facility] Comment on above: IG% - Immature Granu locytes (promyelocytes, myelocytes and metamyelocytes) > 1% indicates that a LEFT SHIFT is Present. MCH (RBC) [Entitic mass] 27.3 pg 27.0-32.0 [facility] Nucleated RBC/100 WBC (Bld) [Ratio] 0 % 0-5 [facility] MCHC Auto (RBC) [Mass/Vol]Or dered By: Calderon Ware on 08-21-2023 MCHC (RBC) [Mass/Vol] 31.4 g/dL 32-36 [facility] No Panel InformationOrdered By: Calderon Ware on 08-21-2023 Estimated Creatinine Clearance Calc 79.55 ml/min [facility] Estimated GFR (MDRD) Amer 113 mL/min >60 [facility] Comment on above: GFR Calc Estimated GFR (MDRD) Non-Af Amer 94 mL/min >60 [facility] Comment on above: Non- GFR Calc Platelets bldOrdered By: Liborio Ware on 08-21-2023 Platelets (Bld) [#/Vol] 165 10*3/uL 150-450 [facility] Serum or plasma calcium herson urement (mass/volume)Ordered By: Calderno Ware on 08-21-2023 Calcium [Mass/Vol] 8.6 mg/dL 8.5-10.1 [facility] Serum or plasma creatinine m easurement (mass/volume)Ordered By: Calderon Ware on 08-21-2023 Creatinine [Mass/Vol] 0.69 mg/dL 0.55-1.02 [facility] Comment on above: The validity of the calculated GFR & GFRAA in patients over 70 years has not been determined. Clinical correlation is essential. Serum or plasma urea nitroge n measurement (mass/volume)Ordered By: Calderon Ware on 08-21-2023 Urea nitrogen [Mass/Vol] 11 mg/dL 7-18 [facility] Thin prep Papanicolaou smear with manual screeningOrdered By: Calderon Ware on 08-21-2023 Thin prep Papanicolaou smear with manual screening 3 5-15 [facility] Basic Metabolic Profile (BMP )on 08-20-2023 BUN/CRE 17.4 RATIO Normal 10-20 [facility] Comment on above: Performed By: #### L 500.2500, L100.0100 ####[facility] [address] [place], [address] CA,Total 8.5 mg/dL Normal 8.5-10.1 [facility] Comment on above: Performed By: #### L 500.2500, L100.0100 ####[facility] [address] [place], [address] Chloride [Moles/Vol] 110 mmol/L High 98-107 [facility] Comment on above: Performed By: #### L 500.2500, L100.0100 ####[facility] [address] [place], [address] CO2 [Moles/Vol] 25.0 mmol/L Normal 21.0-32.0 [facility] Comment on above: Performed By: #### L 500.2500, L100.0100 ####[facility] [address] [place], [address] Creatinine [Mass/Vol] 0.69 mg/dL Normal 0.55-1.02 [facility] Comment on above: Result Comment: The validity of the calculated GFR GFRAA in patients over70 years has not been determined. Clinical correlation isessential. Performed By: #### L 500.2500, L100.0100 ####[facility] [address] [place], [address] ECRCL 79.55 ml/min Normal [facility] Comment on above: Performed By: #### L 500.2500, L100.0100 ####[facility] [address] [place], [address] EST GFR - AA 114 mL/min Normal >60 [facility] Comment on above: Result Comment: Afri can Haitian GFR Calc Performed By: #### L 500.2500, L100.0100 ####[facility] [address] [place], [address] GAP 3 Low 5-15 [facility] Comment on above: Performed By: #### L 500.2500, L100.0100 ####[facility] [address] [place], [address] GFR/1.73 sq M.predicted among non-blacks MDRD (S/P/Bld) [Vol rate/Area] 94 mL/min/{1.73_m2} Normal >60 [facility] Comment on above: Result Comment: Non- GFR Calc Performed By: #### L 500.2500, L100.0100 ####[facility] [address] [place], [address] Glucose [Mass/Vol] 112 mg/dL High 74-106 [facility] Comment on above: Result Comment: Fast ing Glucose result from 100 to 125 mg/dLsuggests IMPAIRED HOMEOSTASIS per A.D.A. criteria. Performed By: #### L 500.2500, L100.0100 ####[facility] [address] [place], [address] Potassium [Moles/Vol] 3.8 mmol/L Normal 3.5-5.1 [facility] Comment on above: Performed By: #### L 500.2500, L100.0100 ####[facility] [address] [place], [address] Sodium [Moles/Vol] 138 mmol/L Normal 136-145 [facility] Comment on above: Performed By: #### L 500.2500, L100.0100 ####[facility] [address] [place], [address] Urea nitrogen [Mass/Vol] 12 mg/dL Normal 7-18 [facility] Comment on above: Performed By: #### L 500.2500, L100.0100 ####[facility] [address] [place], [address] CBC W/Diff, Automatedon 09-2 Absolute Lymph 0.93 X10 3/uL Normal 0.83-4.51 [facility] Comment on above: Performed By: #### L 500.2500, L100.0100 ####[facility] [address] [place], [address] Absolute Neut 5.0 X10 3/uL Normal 2.0-7.7 [facility] Comment on above: Performed By: #### L 500.2500, L100.0100 ####[facility] [address] [place], [address] Basophils/100 WBC (Bld) 0.2 % Normal 0-1 [facility] Comment on above: Performed By: #### L 500.2500, L100.0100 ####[facility] [address] [place], [address] Eosinophils/100 WBC (Bld) 0.0 % Normal 0-5 [facility] Comment on above: Performed By: #### L 500.2500, L100.0100 ####[facility] [address] [place], [address] Erythrocyte distribution width (RBC) [Ratio] 15.6 % High 11.6-14.6 [facility] Comment on above: Performed By: #### L 500.2500, L100.0100 ####[facility] [address] [place], [address] Hematocrit (Bld) [Volume fraction] 33.3 % Low 37-47 [facility] Comment on above: Performed By: #### L 500.2500, L100.0100 ####[facility] [address] [place], [address] Hemoglobin (Bld) [Mass/Vol] 10.4 g/dL Low 12.0-15.0 [facility] Comment on above: Performed By: #### L 500.2500, L100.0100 ####[facility] [address] [place], [address] IG% 0.600 Normal 0.0-0.9 [facility] Comment on above: Result Comment: IG% - Immature Granulocytes (promyelocytes, myelocytes andmetamyelocytes) > 1% indicates that a LEFT SHIFT is Present. Performed By: #### L 500.2500, L100.0100 ####[facility] [address] [place], [address] Lymphocytes/100 WBC (Bld) 14.3 % Low 19-41 [facility] Comment on above: Performed By: #### L 500.2500, L100.0100 ####[facility] [address] [place], [address] MCH (RBC) [Entitic mass] 27.3 pg Normal 27.0-32.0 [facility] Comment on above: Performed By: #### L 500.2500, L100.0100 ####[facility] [address] [place], [address] MCHC (RBC) [Mass/Vol] 31.2 g/dL Low 32-36 [facility] Comment on above: Performed By: #### L 500.2500, L100.0100 ####[facility] [address] [place], [address] MCV (RBC) [Entitic vol] 87.4 fL Normal 81-99 [facility] Comment on above: Performed By: #### L 500.2500, L100.0100 ####[facility] [address] [place], [address] Monocytes/100 WBC (Bld) 8.5 % Normal 0-10 [facility] Comment on above: Performed By: #### L 500.2500, L100.0100 ####[facility] [address] [place], [address] Neutrophils/100 WBC (Bld) 76.4 % High 47-70 [facility] Comment on above: Performed By: #### L 500.2500, L100.0100 ####[facility] [address] [place], [address] Nucleated RBC (Bld) [#/Vol] 0 10*3/uL Normal 0-5 [facility] Comment on above: Performed By: #### L 500.2500, L100.0100 ####[facility] [address] [place], [address] Platelet mean volume (Bld) [Entitic vol] 9.6 fL Normal 6.2-12.0 [facility] Comment on above: Performed By: #### L 500.2500, L100.0100 ####[facility] [address] [place], [address] Platelets (Bld) [#/Vol] 155 10*3/uL Normal 150-450 [facility] Comment on above: Performed By: #### L 500.2500, L100.0100 ####[facility] [address] [place], [address] RBC (Bld) [#/Vol] 3.81 10*6/uL Low 4.2-5.4 [facility] Comment on above: Performed By: #### L 500.2500, L100.0100 ####[facility] [address] [place], [address] RDW SD 49.9 fl High 35.1-43.9 [facility] Comment on above: Performed By: #### L 500.2500, L100.0100 ####[facility] [address] [place], [address] WBC (Bld) [#/Vol] 6.5 10*3/uL Normal 4.4-11.0 [facility] Comment on above: Performed By: #### L 500.2500, L100.0100 ####[facility] [address] [place], [address] Basic Metabolic Profile (BMP )on 08-19-2023 BUN/CRE 14.6 RATIO Normal - [facility] Comment on above: Performed By: #### L 501.5200, L500.2500, L100.0100 ####[facility] [address] [place], [address] CA,Total 8.2 mg/dL Low 8.5-10.1 [facility] Comment on above: Performed By: #### L 501.5200, L500.2500, L100.0100 ####[facility] [address] [place], [address] Chloride [Moles/Vol] 109 mmol/L High 98-107 [facility] Comment on above: Performed By: #### L 501.5200, L500.2500, L100.0100 ####[facility] [address] [place], [address] CO2 [Moles/Vol] 25.0 mmol/L Normal 21.0-32.0 [facility] Comment on above: Performed By: #### L 501.5200, L500.2500, L100.0100 ####[facility] [address] [place], [address] Creatinine [Mass/Vol] 0.75 mg/dL Normal 0.55-1.02 [facility] Comment on above: Result Comment: The validity of the calculated GFR GFRAA in patients over70 years has not been determined. Clinical correlation isessential. Performed By: #### L 501.5200, L500.2500, L100.0100 ####[facility] [address] [place], [address] ECRCL 73.19 ml/min Normal [facility] Comment on above: Performed By: #### L 501.5200, L500.2500, L100.0100 ####[facility] [address] [place], [address] EST GFR - AA 103 mL/min Normal >60 [facility] Comment on above: Result Comment: Afri can Haitian GFR Calc Performed By: #### L 501.5200, L500.2500, L100.0100 ####[facility] [address] [place], [address] GAP 4 Low 5-15 [facility] Comment on above: Performed By: #### L 501.5200, L500.2500, L100.0100 ####[facility] [address] [place], [address] GFR/1.73 sq M.predicted among non-blacks MDRD (S/P/Bld) [Vol rate/Area] 85 mL/min/{1.73_m2} Normal >60 [facility] Comment on above: Result Comment: Non- GFR Calc Performed By: #### L 501.5200, L500.2500, L100.0100 ####[facility] [address] [place], [address] Glucose [Mass/Vol] 105 mg/dL Normal 74-106 [facility] Comment on above: Result Comment: Fast ing Glucose result from 100 to 125 mg/dLsuggests IMPAIRED HOMEOSTASIS per A.D.A. criteria. Performed By: #### L 501.5200, L500.2500, L100.0100 ####[facility] [address] [place], [address] Potassium [Moles/Vol] 3.8 mmol/L Normal 3.5-5.1 [facility] Comment on above: Performed By: #### L 501.5200, L500.2500, L100.0100 ####[facility] [address] [place], [address] Sodium [Moles/Vol] 138 mmol/L Normal 136-145 [facility] Comment on above: Performed By: #### L 501.5200, L500.2500, L100.0100 ####[facility] [address] [place], [address] Urea nitrogen [Mass/Vol] 11 mg/dL Normal 7-18 [facility] Comment on above: Performed By: #### L 501.5200, L500.2500, L100.0100 ####[facility] [address] [place], [address] CBC W/Diff, Automatedon 09-2 0-3 Absolute Lymph 0.70 X10 3/uL Low 0.83-4.51 [facility] Comment on above: Performed By: #### L 501.5200, L500.2500, L100.0100 ####[facility] [address] [place], [address] Absolute Neut 5.4 X10 3/uL Normal 2.0-7.7 [facility] Comment on above: Performed By: #### L 501.5200, L500.2500, L100.0100 ####[facility] [address] [place], [address] Basophils/100 WBC (Bld) 0.1 % Normal 0-1 [facility] Comment on above: Performed By: #### L 501.5200, L500.2500, L100.0100 ####[facility] [address] [place], [address] Eosinophils/100 WBC (Bld) 0.1 % Normal 0-5 [facility] Comment on above: Performed By: #### L 501.5200, L500.2500, L100.0100 ####[facility] [address] [place], [address] Erythrocyte distribution width (RBC) [Ratio] 15.9 % High 11.6-14.6 [facility] Comment on above: Performed By: #### L 501.5200, L500.2500, L100.0100 ####[facility] [address] [place], [address] Hematocrit (Bld) [Volume fraction] 33.6 % Low 37-47 [facility] Comment on above: Performed By: #### L 501.5200, L500.2500, L100.0100 ####[facility] [address] [place], [address] Hemoglobin (Bld) [Mass/Vol] 10.4 g/dL Low 12.0-15.0 [facility] Comment on above: Performed By: #### L 501.5200, L500.2500, L100.0100 ####[facility] [address] [place], [address] IG% 1.000 High 0.0-0.9 [facility] Comment on above: Result Comment: IG% - Immature Granulocytes (promyelocytes, myelocytes andmetamyelocytes) > 1% indicates that a LEFT SHIFT is Present. Performed By: #### L 501.5200, L500.2500, L100.0100 ####[facility] [address] [place], [address] Lymphocytes/100 WBC (Bld) 10.2 % Low 19-41 [facility] Comment on above: Performed By: #### L 501.5200, L500.2500, L100.0100 ####[facility] [address] [place], [address] MCH (RBC) [Entitic mass] 27.2 pg Normal 27.0-32.0 [facility] Comment on above: Performed By: #### L 501.5200, L500.2500, L100.0100 ####[facility] [address] [place], [address] MCHC (RBC) [Mass/Vol] 31.0 g/dL Low 32-36 [facility] Comment on above: Performed By: #### L 501.5200, L500.2500, L100.0100 ####[facility] [address] [place], [address] MCV (RBC) [Entitic vol] 88.0 fL Normal 81-99 [facility] Comment on above: Performed By: #### L 501.5200, L500.2500, L100.0100 ####[facility] [address] [place], [address] Monocytes/100 WBC (Bld) 9.2 % Normal 0-10 [facility] Comment on above: Performed By: #### L 501.5200, L500.2500, L100.0100 ####[facility] [address] [place], [address] Neutrophils/100 WBC (Bld) 79.4 % High 47-70 [facility] Comment on above: Performed By: #### L 501.5200, L500.2500, L100.0100 ####[facility] [address] [place], [address] Nucleated RBC (Bld) [#/Vol] 0 10*3/uL Normal 0-5 [facility] Comment on above: Performed By: #### L 501.5200, L500.2500, L100.0100 ####[facility] [address] [place], [address] Platelet mean volume (Bld) [Entitic vol] 9.7 fL Normal 6.2-12.0 [facility] Comment on above: Performed By: #### L 501.5200, L500.2500, L100.0100 ####[facility] [address] [place], [address] Platelets (Bld) [#/Vol] 143 10*3/uL Low 150-450 [facility] Comment on above: Performed By: #### L 501.5200, L500.2500, L100.0100 ####[facility] [address] [place], [address] RBC (Bld) [#/Vol] 3.82 10*6/uL Low 4.2-5.4 [facility] Comment on above: Performed By: #### L 501.5200, L500.2500, L100.0100 ####[facility] [address] [place], [address] RDW SD 51.7 fl High 35.1-43.9 [facility] Comment on above: Performed By: #### L 501.5200, L500.2500, L100.0100 ####[facility] [address] [place], [address] WBC (Bld) [#/Vol] 6.8 10*3/uL Normal 4.4-11.0 [facility] Comment on above: Performed By: #### L 501.5200, L500.2500, L100.0100 ####[facility] [address] [place], [address] Consultation - Infectious Dx on 08-19-2023 Consultation - Infectious Dx Normal [facility] Laboratory - Chemistry and C hemistry - challengeOrdered By: Calderon Ware on 08-19-2023 Magnesium [Mass/Vol] 2.0 mg/dL 1.6-2.6 [facility] Magnesiumon 08-19-2023 Magnesium [Mass/Vol] 2.0 mg/dL Normal 1.6-2.6 [facility] Comment on above: Performed By: #### L 501.5200, L500.2500, L100.0100 ####[facility] [address] [place], [address] Basic Metabolic Profile (BMP )on 08-18-2023 BUN/CRE 21.0 RATIO High 10-20 [facility] Comment on above: Performed By: #### L 500.2500, L100.0100 ####[facility] [address] [place], [address] CA,Total 7.9 mg/dL Low 8.5-10.1 [facility] Comment on above: Performed By: #### L 500.2500, L100.0100 ####[facility] [address] [place], [address] Chloride [Moles/Vol] 105 mmol/L Normal 98-107 [facility] Comment on above: Performed By: #### L 500.2500, L100.0100 ####[facility] [address] [place], [address] CO2 [Moles/Vol] 28.0 mmol/L Normal 21.0-32.0 [facility] Comment on above: Performed By: #### L 500.2500, L100.0100 ####[facility] [address] [place], [address] Creatinine [Mass/Vol] 0.86 mg/dL Normal 0.55-1.02 [facility] Comment on above: Result Comment: The validity of the calculated GFR GFRAA in patients over70 years has not been determined. Clinical correlation isessential. Performed By: #### L 500.2500, L100.0100 ####[facility] [address] [place], [address] ECRCL 63.83 ml/min Normal [facility] Comment on above: Performed By: #### L 500.2500, L100.0100 ####[facility] [address] [place], [address] EST GFR - AA 88 mL/min Normal >60 [facility] Comment on above: Result Comment: Afri can Haitian GFR Calc Performed By: #### L 500.2500, L100.0100 ####[facility] [address] [place], [address] GAP 4 Low 5-15 [facility] Comment on above: Performed By: #### L 500.2500, L100.0100 ####[facility] [address] [place], [address] GFR/1.73 sq M.predicted among non-blacks MDRD (S/P/Bld) [Vol rate/Area] 73 mL/min/{1.73_m2} Normal >60 [facility] Comment on above: Result Comment: Non- GFR Calc Performed By: #### L 500.2500, L100.0100 ####[facility] [address] [place], [address] Glucose [Mass/Vol] 99 mg/dL Normal 74-106 [facility] Comment on above: Performed By: #### L 500.2500, L100.0100 ####[facility] [address] [place], [address] Potassium [Moles/Vol] 4.1 mmol/L Normal 3.5-5.1 [facility] Comment on above: Performed By: #### L 500.2500, L100.0100 ####[facility] [address] [place], [address] Sodium [Moles/Vol] 137 mmol/L Normal 136-145 [facility] Comment on above: Performed By: #### L 500.2500, L100.0100 ####[facility] [address] [place], [address] Urea nitrogen [Mass/Vol] 18 mg/dL Normal 7-18 [facility] Comment on above: Performed By: #### L 500.2500, L100.0100 ####[facility] [address] [place], [address] Basophil percentageOrdered B y: Mandy Arce on 08-18-2023 Lactate [Moles/Vol] 1.1 mmol/L 0.4-2.0 [facility] Lactate [Moles/Vol] 2.4 mmol/L Invalid Interpretation Code 0.4-1.9 [facility] Comment on above: Critical Result(s) C alled at: 00:02:08 08/18/2023 by: Vladimir Ruth. to SATHYA (RN) (ED) Results read back by same. Order Comment: Y Result Comment: Crit ical Result(s) Called at: 00:02:08 08/18/2023 by: Zheng. to SATHYA (RN) (ED) Results read back by same. Performed By: #### L 503.6005, L300.4310, L300.3900 ####[facility] [address] [place], [address] CBC W/Diff, Automatedon 07-31 Absolute Lymph 0.71 X10 3/uL Low 0.83-4.51 [facility] Comment on above: Performed By: #### L 500.2500, L100.0100 ####[facility] [address] [place], [address] Absolute Neut 14.4 X10 3/uL High 2.0-7.7 [facility] Comment on above: Performed By: #### L 500.2500, L100.0100 ####[facility] [address] [place], [address] Basophils/100 WBC (Bld) 0.1 % Normal 0-1 [facility] Comment on above: Performed By: #### L 500.2500, L100.0100 ####[facility] [address] [place], [address] Eosinophils/100 WBC (Bld) 0.0 % Normal 0-5 [facility] Comment on above: Performed By: #### L 500.2500, L100.0100 ####[facility] [address] [place], [address] Erythrocyte distribution width (RBC) [Ratio] 15.4 % High 11.6-14.6 [facility] Comment on above: Performed By: #### L 500.2500, L100.0100 ####[facility] [address] [place], [address] Hematocrit (Bld) [Volume fraction] 35.3 % Low 37-47 [facility] Comment on above: Performed By: #### L 500.2500, L100.0100 ####[facility] [address] [place], [address] Hemoglobin (Bld) [Mass/Vol] 11.0 g/dL Low 12.0-15.0 [facility] Comment on above: Performed By: #### L 500.2500, L100.0100 ####[facility] [address] [place], [address] IG% 1.000 High 0.0-0.9 [facility] Comment on above: Result Comment: IG% - Immature Granulocytes (promyelocytes, myelocytes andmetamyelocytes) > 1% indicates that a LEFT SHIFT is Present. Performed By: #### L 500.2500, L100.0100 ####[facility] [address] [place], [address] Lymphocytes/100 WBC (Bld) 4.5 % Low 19-41 [facility] Comment on above: Performed By: #### L 500.2500, L100.0100 ####[facility] [address] [place], [address] MCH (RBC) [Entitic mass] 27.3 pg Normal 27.0-32.0 [facility] Comment on above: Performed By: #### L 500.2500, L100.0100 ####[facility] [address] [place], [address] MCHC (RBC) [Mass/Vol] 31.2 g/dL Low 32-36 [facility] Comment on above: Performed By: #### L 500.2500, L100.0100 ####[facility] [address] [place], [address] MCV (RBC) [Entitic vol] 87.6 fL Normal 81-99 [facility] Comment on above: Performed By: #### L 500.2500, L100.0100 ####[facility] [address] [place], [address] Monocytes/100 WBC (Bld) 3.6 % Normal 0-10 [facility] Comment on above: Performed By: #### L 500.2500, L100.0100 ####[facility] [address] [place], [address] Neutrophils/100 WBC (Bld) 90.8 % High 47-70 [facility] Comment on above: Performed By: #### L 500.2500, L100.0100 ####[facility] [address] [place], [address] Nucleated RBC (Bld) [#/Vol] 0 10*3/uL Normal 0-5 [facility] Comment on above: Performed By: #### L 500.2500, L100.0100 ####[facility] [address] [place], [address] Platelet mean volume (Bld) [Entitic vol] 9.7 fL Normal 6.2-12.0 [facility] Comment on above: Performed By: #### L 500.2500, L100.0100 ####[facility] [address] [place], [address] Platelets (Bld) [#/Vol] 165 10*3/uL Normal 150-450 [facility] Comment on above: Performed By: #### L 500.2500, L100.0100 ####[facility] [address] [place], [address] RBC (Bld) [#/Vol] 4.03 10*6/uL Low 4.2-5.4 [facility] Comment on above: Performed By: #### L 500.2500, L100.0100 ####[facility] [address] [place], [address] RDW SD 49.7 fl High 35.1-43.9 [facility] Comment on above: Performed By: #### L 500.2500, L100.0100 ####[facility] [address] [place], [address] WBC (Bld) [#/Vol] 15.8 10*3/uL High 4.4-11.0 [facility] Comment on above: Performed By: #### L 500.2500, L100.0100 ####[facility] [address] [place], [address] Lactic Acidon 08-18-2023 Lactate [Moles/Vol] 1.1 mmol/L Normal 0.4-1.9 [facility] Comment on above: Performed By: #### L 503.6005 ####[facility] [address] [place], [address] 12 Lead EKGon 08-17-2023 12 Lead EKG Normal [facility] Absolute lymphocyte countOrd ered By: Mandy Arce on 08-17-2023 Lymphocytes Auto (Unsp spec) [#/Vol] 0.54 10*3/uL 0.83-4.51 [facility] Basophil percentageOrdered B y: Mandy Arce on 08-17-2023 Bilirubin [Mass/Vol] 0.40 mg/dL Normal 0.20-1.00 [facility] Comment on above: For patients on eltr ombopag therapy, use of Dimension [place] TBIL is not recommended. Result Comment: For patients on eltrombopag therapy, use of Dimension [place] TBIL is not recommended. Performed By: #### L 500.4050, L501.6710, L100.0100, L101.9900 ####[facility] [address] [place], [address] Chloride [Moles/Vol] 103 mmol/L Normal 98-107 [facility] Comment on above: Performed By: #### L 500.4050, L501.6710, L100.0100, L101.9900 ####[facility] [address] [place], [address] Glucose [Mass/Vol] 101 mg/dL Normal 74-106 [facility] Comment on above: Fasting Glucose resu lt from 100 to 125 mg/dL suggests IMPAIRED HOMEOSTASIS per A.D.A. criteria. Result Comment: Fast ing Glucose result from 100 to 125 mg/dLsuggests IMPAIRED HOMEOSTASIS per A.D.A. criteria. Performed By: #### L 500.4050, L501.6710, L100.0100, L101.9900 ####[facility] [address] [place], [address] Potassium [Moles/Vol] 4.6 mmol/L Normal 3.5-5.1 [facility] Comment on above: Performed By: #### L 500.4050, L501.6710, L100.0100, L101.9900 ####[facility] [address] [place], [address] Sodium [Moles/Vol] 136 mmol/L Normal 136-145 [facility] Comment on above: Performed By: #### L 500.4050, L501.6710, L100.0100, L101.9900 ####[facility] [address] [place], [address] Basophils/100 WBC (Bld) 0.1 % 0-1 [facility] Eosinophils/100 WBC (Bld) 0.0 % 0-5 [facility] Neutrophils (Bld) [#/Vol] 15.3 10*3/uL 2.0-7.7 [facility] Neutrophils/100 WBC (Bld) 90.9 % 47-70 [facility] Protein [Mass/Vol] 7.6 g/dL 6.4-8.2 [facility] WBC (Bld) [#/Vol] 16.8 10*3/uL 4.4-11.0 [facility] Blood erythrocytes count (nu mber/volume)Ordered By: Mandy Arce on 08-17-2023 RBC (Bld) [#/Vol] 4.57 10*6/uL 4.2-5.4 [facility] Blood hemoglobin measurement (mass/volume)Ordered By: Mandy Arce on 08-17-2023 Hemoglobin (Bld) [Mass/Vol] 12.5 g/dL 12.0-15.0 [facility] Blood lymphocytes/100 leukoc ytesOrdered By: Mandy Arce on 08-17-2023 Lymphocytes/100 WBC (Bld) 3.2 % 19-41 [facility] Blood monocytes/100 leukocyt esOrdered By: Mandy Arce on 08-17-2023 Monocytes/100 WBC (Bld) 5.0 % 0-10 [facility] Blood platelet mean volumeOr dered By: Mandy Arce on 08-17-2023 Platelet mean volume (Bld) [Entitic vol] 10.0 fL 6.2-12.0 [facility] CBC W/Diff, AutomatedOrdered By: Mandy Arce on 08-17-2023 Anisocytosis Ql (Bld) 1+ Normal [facility] Comment on above: Performed By: #### L 500.4050, L501.6710, L100.0100, L101.9900 ####[facility] [address] [place], [address] CRPon 08-17-2023 C-REACTIVE PROT 53.20 mg/L High 0.0-3.0 [facility] Comment on above: Result Comment: C-Re active Protein (CRP) provides useful information for thediagnosis, therapy and monitoring of inflammatory processesand associated diseases. For the evaluation of Relative Riskfor Cardiovascular Disease, a High Sensitivity CRP (HSCRP)should be ordered. Performed By: #### L 500.4050, L501.6710, L100.0100, L101.9900 ####[facility] [address] [place], [address] Chest 1 View (Portable)on Chest 1 View (Portable) Normal [facility] Comprehensive Metabolic Prof ilon 08-17-2023 ALK P 81 U/L Normal 45-117 [facility] Comment on above: Performed By: #### L 500.4050, L501.6710, L100.0100, L101.9900 ####[facility] [address] [place], [address] AST [Catalytic activity/Vol] 15 U/L Normal 15-37 [facility] Comment on above: Performed By: #### L 500.4050, L501.6710, L100.0100, L101.9900 ####[facility] [address] [place], [address] BUN/CRE 21.8 RATIO High 10-20 [facility] Comment on above: Performed By: #### L 500.4050, L501.6710, L100.0100, L101.9900 ####[facility] [address] [place], [address] CA,Total 8.8 mg/dL Normal 8.5-10.1 [facility] Comment on above: Performed By: #### L 500.4050, L501.6710, L100.0100, L101.9900 ####[facility] [address] [place], [address] EST GFR - AA 82 mL/min Normal >60 [facility] Comment on above: Result Comment: Afri can Haitian GFR Calc Performed By: #### L 500.4050, L501.6710, L100.0100, L101.9900 ####[facility] [address] [place], [address] GAP 4 Low 5-15 [facility] Comment on above: Performed By: #### L 500.4050, L501.6710, L100.0100, L101.9900 ####[facility] [address] [place], [address] GFR/1.73 sq M.predicted among non-blacks MDRD (S/P/Bld) [Vol rate/Area] 68 mL/min/{1.73_m2} Normal >60 [facility] Comment on above: Result Comment: Non- GFR Calc Performed By: #### L 500.4050, L501.6710, L100.0100, L101.9900 ####[facility] [address] [place], [address] T PROT 7.6 g/dL Normal 6.4-8.2 [facility] Comment on above: Performed By: #### L 500.4050, L501.6710, L100.0100, L101.9900 ####[facility] [address] [place], [address] Comprehensive Metabolic Prof ilOrdered By: Mandy Arce on 08-17-2023 ALT [Catalytic activity/Vol] 19 U/L Normal 13-56 [facility] Comment on above: Performed By: #### L 500.4050, L501.6710, L100.0100, L101.9900 ####[facility] [address] [place], [address] CO2 [Moles/Vol] 29.0 mmol/L Normal 21.0-32.0 [facility] Comment on above: Performed By: #### L 500.4050, L501.6710, L100.0100, L101.9900 ####[facility] [address] [place], [address] Globulin (S) [Mass/Vol] 4.3 g/dL High 2.2-4.2 [facility] Comment on above: Performed By: #### L 500.4050, L501.6710, L100.0100, L101.9900 ####[facility] [address] [place], [address] Determination of erythrocyte mean corpuscular volume (MCV)Ordered By: Mandy Arce on 08-17-2023 MCV (RBC) [Entitic vol] 87.3 fL 81-99 [facility] Emergency Department Summary on 08-17-2023 Emergency Department Summary Normal [facility] Erythrocyte Sed Rateon 08-17 SED RATE 28 mm/hr Normal 0-30 [facility] Comment on above: Performed By: #### L 500.4050, L501.6710, L100.0100, L101.9900 ####[facility] [address] [place], [address] Erythrocyte sedimentation ra teOrdered By: Mandy Arce on 08-17-2023 ESR (Bld) [Velocity] 28 mm/h 0-30 [facility] Hematocrit Auto (Bld) [Volum e fraction]Ordered By: Mandy Arce on 08-17-2023 Hematocrit (Bld) [Volume fraction] 39.9 % 37-47 [facility] INR in Blood by Coagulation assayOrdered By: Mandy Arce on 08-17-2023 INR Coag (Bld) [Relative time] 1.0 {INR} [facility] Laboratory - Chemistry and C hemistry - challengeOrdered By: Mandy Arce on 08-17-2023 ALP [Catalytic activity/Vol] 81 U/L 45-117 [facility] Urea nitrogen/Creatinine [Mass ratio] 21.8 mg/mg 10-20 [facility] Laboratory - Hematology and Cell countsOrdered By: Mandy Arce on 08-17-2023 Erythrocyte distribution width (RBC) [Entitic vol] 48.9 fL 35.1-43.9 [facility] Erythrocyte distribution width (RBC) [Ratio] 15.3 % 11.6-14.6 [facility] Immature granulocytes/100 WBC (Bld) 0.800 % 0.0-0.9 [facility] Comment on above: IG% - Immature Granu locytes (promyelocytes, myelocytes and metamyelocytes) > 1% indicates that a LEFT SHIFT is Present. MCH (RBC) [Entitic mass] 27.4 pg 27.0-32.0 [facility] Nucleated RBC/100 WBC (Bld) [Ratio] 0 % 0-5 [facility] MCHC Auto (RBC) [Mass/Vol]Or dered By: Mandy Arce on 08-17-2023 MCHC (RBC) [Mass/Vol] 31.3 g/dL 32-36 [facility] No Panel InformationOrdered By: Mandy Arce on 08-17-2023 Estimated GFR (MDRD) Amer 82 mL/min >60 [facility] Comment on above: GFR Calc Estimated GFR (MDRD) Non-Af Amer 68 mL/min >60 [facility] Comment on above: Non- GFR Calc Partial Thromboplast TimeOrd ered By: Mandy Arce on 08-17-2023 aPTT Coag (Bld) [Time] 32.0 s Normal 24.1-36.2 [facility] Comment on above: Performed By: #### L 503.6005, L300.4310, L300.3900 ####[facility] [address] [place], [address] Platelets bldOrdered By: Nani Arce on 08-17-2023 Platelets (Bld) [#/Vol] 190 10*3/uL 150-450 [facility] Prothrombin Time w/INRon INR Coag (PPP) [Relative time] 1.0 {INR} Normal [facility] Comment on above: Performed By: #### L 503.6005, L300.4310, L300.3900 ####[facility] [address] [place], [address] Prothrombin Time w/INROrdere d By: Mandy Arce on 08-17-2023 PT Coag (PPP) [Time] 12.9 s Normal 11.7-14.9 [facility] Comment on above: Performed By: #### L 503.6005, L300.4310, L300.3900 ####[facility] [address] [place], [address] Serum or plasma C reactive p rotein measurement (mass/volume)Ordered By: Mandy Arce on 08-17-2023 CRP [Mass/Vol] 53.20 mg/L 0.0-3.0 [facility] Comment on above: C-Reactive Protein ( CRP) provides useful information for thediagnosis, therapy and monitoring of inflammatory processesand associated diseases. For the evaluation of Relative Riskfor Cardiovascular Disease, a High Sensitivity CRP (HSCRP)should be ordered. Serum or plasma albumin herson urement (mass/volume)Ordered By: Mandy Arce on 08-17-2023 Albumin [Mass/Vol] 3.3 g/dL Normal 3.2-5.0 [facility] Comment on above: Performed By: #### L 500.4050, L501.6710, L100.0100, L101.9900 ####[facility] [address] [place], [address] Serum or plasma albumin/glob ulin mass ratioOrdered By: Mandy Arce on 08-17-2023 Albumin/Globulin [Mass ratio] 0.8 {ratio} Low 0.9-2.4 [facility] Comment on above: Performed By: #### L 500.4050, L501.6710, L100.0100, L101.9900 ####[facility] [address] [place], [address] Serum or plasma calcium herson urement (mass/volume)Ordered By: Mandy Arce on 08-17-2023 Calcium [Mass/Vol] 8.8 mg/dL 8.5-10.1 [facility] Serum or plasma creatinine m easurement (mass/volume)Ordered By: Mandy Arce on 08-17-2023 Creatinine [Mass/Vol] 0.92 mg/dL Normal 0.55-1.02 [facility] Comment on above: The validity of the calculated GFR & GFRAA in patients over 70 years has not been determined. Clinical correlation is essential. Result Comment: The validity of the calculated GFR GFRAA in patients over70 years has not been determined. Clinical correlation isessential. Performed By: #### L 500.4050, L501.6710, L100.0100, L101.9900 ####[facility] [address] [place], [address] Serum or plasma urea nitroge n measurement (mass/volume)Ordered By: Mandy Arce on 08-17-2023 Urea nitrogen [Mass/Vol] 20 mg/dL High 06-16 [facility] Comment on above: Performed By: #### L 500.4050, L501.6710, L100.0100, L101.9900 ####[facility] [address] [place], [address] Thin prep Papanicolaou smear with manual screeningOrdered By: Mandy Arce on 08-17-2023 Thin prep Papanicolaou smear with manual screening 15 U/L 15-37 [facility] Thin prep Papanicolaou smear with manual screening 4 5-15 [facility] Urinalysis, Completeon 08-17 BACTERIA Normal None Seen [facility] Comment on above: Order Comment: DYLAN FAIRCHILDOR TO SPECIFY Result Comment: Canc elled via OM: MD Ordered Performed By: #### L 400.0001 ####[facility] [address] [place], [address] BILIRUBIN URINE Normal Negative [facility] Comment on above: Order Comment: DYLAN CTOR TO SPECIFY Result Comment: Canc elled via OM: MD Ordered Performed By: #### L 400.0001 ####[facility] [address] [place], [address] Clarity (U) Normal Clear [facility] Comment on above: Order Comment: DYLAN CTOR TO SPECIFY Result Comment: Canc elled via OM: MD Ordered Performed By: #### L 400.0001 ####[facility] [address] [place], [address] Color (U) Normal Yellow [facility] Comment on above: Order Comment: DYLAN CTOR TO SPECIFY Result Comment: Canc elled via OM: MD Ordered Performed By: #### L 400.0001 ####[facility] [address] [place], [address] EPI,SQUAMOUS Normal 5-10 [facility] Comment on above: Order Comment: DYLAN FAIRCHILDOR TO SPECIFY Result Comment: Canc elled via OM: MD Ordered Performed By: #### L 400.0001 ####[facility] [address] [place], [address] GLUCOSE, UR Normal Normal [facility] Comment on above: Order Comment: DYLAN CTOR TO SPECIFY Result Comment: Canc elled via OM: MD Ordered Performed By: #### L 400.0001 ####[facility] [address] [place], [address] KETONE UR Normal Negative [facility] Comment on above: Order Comment: DYLAN FAIRCHILDOR TO SPECIFY Result Comment: Canc elled via OM: MD Ordered Performed By: #### L 400.0001 ####[facility] [address] [place], [address] LEUK ESTERASE Normal Negative [facility] Comment on above: Order Comment: DYLAN CTOR TO SPECIFY Result Comment: Canc elled via OM: MD Ordered Performed By: #### L 400.0001 ####[facility] [address] [place], [address] Mucus Ql (Urine sed) Normal [facility] Comment on above: Order Comment: DYLAN CTOR TO SPECIFY Result Comment: Canc elled via OM: MD Ordered Performed By: #### L 400.0001 ####[facility] [address] [place], [address] Nitrite Ql (U) Normal Negative [facility] Comment on above: Order Comment: DYLAN CTOR TO SPECIFY Result Comment: Canc elled via OM: MD Ordered Performed By: #### L 400.0001 ####[facility] [address] [place], [address] OCCULT BLOOD-UR Normal Negative [facility] Comment on above: Order Comment: DYLAN CTOR TO SPECIFY Result Comment: Canc elled via OM: MD Ordered Performed By: #### L 400.0001 ####[facility] [address] [place], [address] pH UR Normal 5.0 - 8.0 [facility] Comment on above: Order Comment: DYLAN CTOR TO SPECIFY Result Comment: Canc elled via OM: MD Ordered Performed By: #### L 400.0001 ####[facility] [address] [place], [address] PROT DIPSTX Normal Negative [facility] Comment on above: Order Comment: COLLE CTOR TO SPECIFY Result Comment: Canc elled via OM: MD Ordered Performed By: #### L 400.0001 ####[facility] [address] [place], [address] RBC Normal 0-5 [facility] Comment on above: Order Comment: COLLE CTOR TO SPECIFY Result Comment: Canc elled via OM: MD Ordered Performed By: #### L 400.0001 ####[facility] [address] [place], [address] SP.GR. DIPSTX Normal 1.002-1.030 [facility] Comment on above: Order Comment: COLLE CTOR TO SPECIFY Result Comment: Canc elled via OM: MD Ordered Performed By: #### L 400.0001 ####[facility] [address] [place], [address] UR Preservative Normal [facility] Comment on above: Order Comment: COLLE CTOR TO SPECIFY Result Comment: Canc elled via OM: MD Ordered Performed By: #### L 400.0001 ####[facility] [address] [place], [address] UROBILI Normal Normal [facility] Comment on above: Order Comment: COLLE CTOR TO SPECIFY Result Comment: Canc elled via OM: MD Ordered Performed By: #### L 400.0001 ####[facility] [address] [place], [address] WBC Normal 0-5 [facility] Comment on above: Order Comment: COLLE CTOR TO SPECIFY Result Comment: Canc elled via OM: MD Ordered Performed By: #### L 400.0001 ####[facility] [address] [place], [address] Basic Metabolic Profile (BMP )on 08-02-2023 BUN Normal 7-18 [facility] Comment on above: Result Comment: Canc elled via OM: Order cancelled - Patient discharged Performed By: #### L 500.2500, L100.0100 ####[facility] [address] [place], [address] BUN/CRE Normal 10-20 [facility] Comment on above: Result Comment: Canc elled via OM: Order cancelled - Patient discharged Performed By: #### L 500.2500, L100.0100 ####[facility] [address] [place], [address] CA,Total Normal 8.5-10.1 [facility] Comment on above: Result Comment: Canc elled via OM: Order cancelled - Patient discharged Performed By: #### L 500.2500, L100.0100 ####[facility] [address] [place], [address] CL Normal 98-107 [facility] Comment on above: Result Comment: Canc elled via OM: Order cancelled - Patient discharged Performed By: #### L 500.2500, L100.0100 ####[facility] [address] [place], [address] CO2 Normal 21.0-32.0 [facility] Comment on above: Result Comment: Canc elled via OM: Order cancelled - Patient discharged Performed By: #### L 500.2500, L100.0100 ####[facility] [address] [place], [address] CREAT,SERUM Normal 0.55-1.02 [facility] Comment on above: Result Comment: Canc elled via OM: Order cancelled - Patient discharged Performed By: #### L 500.2500, L100.0100 ####[facility] [address] [place], [address] EST GFR Normal >60 [facility] Comment on above: Result Comment: Canc elled via OM: Order cancelled - Patient discharged Performed By: #### L 500.2500, L100.0100 ####[facility] [address] [place], [address] EST GFR - AA Normal >60 [facility] Comment on above: Result Comment: Canc elled via OM: Order cancelled - Patient discharged Performed By: #### L 500.2500, L100.0100 ####[facility] [address] [place], [address] GAP Normal 5-15 [facility] Comment on above: Result Comment: Canc elled via OM: Order cancelled - Patient discharged Performed By: #### L 500.2500, L100.0100 ####[facility] [address] [place], [address] GLU Normal 74-106 [facility] Comment on above: Result Comment: Canc elled via OM: Order cancelled - Patient discharged Performed By: #### L 500.2500, L100.0100 ####[facility] [address] [place], [address] Potassium Normal 3.5-5.1 [facility] Comment on above: Result Comment: Canc elled via OM: Order cancelled - Patient discharged Performed By: #### L 500.2500, L100.0100 ####[facility] [address] [place], [address] Basic Metabolic Profile (BMP) Normal 136-145 [facility] Comment on above: Result Comment: Canc elled via OM: Order cancelled - Patient discharged Performed By: #### L 500.2500, L100.0100 ####[facility] [address] [place], [address] CBC W/Diff, Automatedon 09-0 Absolute Neut Normal 2.0-7.7 [facility] Comment on above: Result Comment: Canc elled via OM: Order cancelled - Patient discharged Performed By: #### L 500.2500, L100.0100 ####[facility] [address] [place], [place], [address] HCT Normal 37-47 [facility] Comment on above: Result Comment: Canc elled via OM: Order cancelled - Patient discharged Performed By: #### L 500.2500, L100.0100 ####[facility] [address] [place], [address] HGB Normal 12.0-15.0 [facility] Comment on above: Result Comment: Canc elled via OM: Order cancelled - Patient discharged Performed By: #### L 500.2500, L100.0100 ####[facility] [address] [place], [address] MCH Normal 27.0-32.0 [facility] Comment on above: Result Comment: Canc elled via OM: Order cancelled - Patient discharged Performed By: #### L 500.2500, L100.0100 ####[facility] [address] [place], [address] MCHC Normal 32-36 [facility] Comment on above: Result Comment: Canc elled via OM: Order cancelled - Patient discharged Performed By: #### L 500.2500, L100.0100 ####[facility] [address] [place], [address] MCV Normal 81-99 [facility] Comment on above: Result Comment: Canc elled via OM: Order cancelled - Patient discharged Performed By: #### L 500.2500, L100.0100 ####[facility] [address] [place], [address] NEUT% Normal 47-70 [facility] Comment on above: Result Comment: Canc elled via OM: Order cancelled - Patient discharged Performed By: #### L 500.2500, L100.0100 ####[facility] [address] [place], [address] PLT Normal 150-450 [facility] Comment on above: Result Comment: Canc elled via OM: Order cancelled - Patient discharged Performed By: #### L 500.2500, L100.0100 ####[facility] [address] [place], [address] RBC Normal 4.2-5.4 [facility] Comment on above: Result Comment: Canc elled via OM: Order cancelled - Patient discharged Performed By: #### L 500.2500, L100.0100 ####[facility] [address] [place], [address] RDW CV Normal 11.6-14.6 [facility] Comment on above: Result Comment: Canc elled via OM: Order cancelled - Patient discharged Performed By: #### L 500.2500, L100.0100 ####[facility] [address] [place], [address] RDW SD Normal 35.1-43.9 [facility] Comment on above: Result Comment: Canc elled via OM: Order cancelled - Patient discharged Performed By: #### L 500.2500, L100.0100 ####[facility] [address] [place], [address] WBC Normal 4.4-11.0 [facility] Comment on above: Result Comment: Canc elled via OM: Order cancelled - Patient discharged Performed By: #### L 500.2500, L100.0100 ####[facility] [address] [place], [address] Basic Metabolic Profile (BMP )on 08-01-2023 BUN Normal 7-18 [facility] Comment on above: Result Comment: Canc elled via OM: Order cancelled - Patient discharged Performed By: #### L 500.2500, L100.0100 ####[facility] [address] [place], [address] BUN/CRE Normal 10-20 [facility] Comment on above: Result Comment: Canc elled via OM: Order cancelled - Patient discharged Performed By: #### L 500.2500, L100.0100 ####[facility] [address] [place], [address] CA,Total Normal 8.5-10.1 [facility] Comment on above: Result Comment: Canc elled via OM: Order cancelled - Patient discharged Performed By: #### L 500.2500, L100.0100 ####[facility] [address] [place], [address] CL Normal 98-107 [facility] Comment on above: Result Comment: Canc elled via OM: Order cancelled - Patient discharged Performed By: #### L 500.2500, L100.0100 ####[facility] [address] [place], [address] CO2 Normal 21.0-32.0 [facility] Comment on above: Result Comment: Canc elled via OM: Order cancelled - Patient discharged Performed By: #### L 500.2500, L100.0100 ####[facility] [address] [place], [address] CREAT,SERUM Normal 0.55-1.02 [facility] Comment on above: Result Comment: Canc elled via OM: Order cancelled - Patient discharged Performed By: #### L 500.2500, L100.0100 ####[facility] [address] [place], [address] EST GFR Normal >60 [facility] Comment on above: Result Comment: Canc elled via OM: Order cancelled - Patient discharged Performed By: #### L 500.2500, L100.0100 ####[facility] [address] [place], [address] EST GFR - AA Normal >60 [facility] Comment on above: Result Comment: Canc elled via OM: Order cancelled - Patient discharged Performed By: #### L 500.2500, L100.0100 ####[facility] [address] [place], [address] GAP Normal 5-15 [facility] Comment on above: Result Comment: Canc elled via OM: Order cancelled - Patient discharged Performed By: #### L 500.2500, L100.0100 ####[facility] [address] [place], [address] GLU Normal 74-106 [facility] Comment on above: Result Comment: Canc elled via OM: Order cancelled - Patient discharged Performed By: #### L 500.2500, L100.0100 ####[facility] [address] [place], [address] Potassium Normal 3.5-5.1 [facility] Comment on above: Result Comment: Canc elled via OM: Order cancelled - Patient discharged Performed By: #### L 500.2500, L100.0100 ####[facility] [address] [place], [address] Basic Metabolic Profile (BMP) Normal 136-145 [facility] Comment on above: Result Comment: Canc elled via OM: Order cancelled - Patient discharged Performed By: #### L 500.2500, L100.0100 ####[facility] [address] [place], [address] CBC W/Diff, Automatedon 09-0 -2022 Absolute Neut Normal 2.0-7.7 [facility] Comment on above: Result Comment: Canc elled via OM: Order cancelled - Patient discharged Performed By: #### L 500.2500, L100.0100 ####[facility] [address] [place], [address] HCT Normal 37-47 [facility] Comment on above: Result Comment: Canc elled via OM: Order cancelled - Patient discharged Performed By: #### L 500.2500, L100.0100 ####[facility] [address] [place], [address] HGB Normal 12.0-15.0 [facility] Comment on above: Result Comment: Canc elled via OM: Order cancelled - Patient discharged Performed By: #### L 500.2500, L100.0100 ####[facility] [address] [place], [address] MCH Normal 27.0-32.0 [facility] Comment on above: Result Comment: Canc elled via OM: Order cancelled - Patient discharged Performed By: #### L 500.2500, L100.0100 ####[facility] [address] [place], [address] MCHC Normal 32-36 [facility] Comment on above: Result Comment: Canc elled via OM: Order cancelled - Patient discharged Performed By: #### L 500.2500, L100.0100 ####[facility] [address] [place], [address] MCV Normal 81-99 [facility] Comment on above: Result Comment: Canc elled via OM: Order cancelled - Patient discharged Performed By: #### L 500.2500, L100.0100 ####[facility] [address] [place], [address] NEUT% Normal 47-70 [facility] Comment on above: Result Comment: Canc elled via OM: Order cancelled - Patient discharged Performed By: #### L 500.2500, L100.0100 ####[facility] [address] [place], [address] PLT Normal 150-450 [facility] Comment on above: Result Comment: Canc elled via OM: Order cancelled - Patient discharged Performed By: #### L 500.2500, L100.0100 ####[facility] [address] [place], [address] RBC Normal 4.2-5.4 [facility] Comment on above: Result Comment: Canc elled via OM: Order cancelled - Patient discharged Performed By: #### L 500.2500, L100.0100 ####[facility] [address] [place], [address] RDW CV Normal 11.6-14.6 [facility] Comment on above: Result Comment: Canc elled via OM: Order cancelled - Patient discharged Performed By: #### L 500.2500, L100.0100 ####[facility] [address] [place], [address] RDW SD Normal 35.1-43.9 [facility] Comment on above: Result Comment: Canc elled via OM: Order cancelled - Patient discharged Performed By: #### L 500.2500, L100.0100 ####[facility] [address] [place], [address] WBC Normal 4.4-11.0 [facility] Comment on above: Result Comment: Canc elled via OM: Order cancelled - Patient discharged Performed By: #### L 500.2500, L100.0100 ####[facility] [address] [place], [address] Absolute lymphocyte countOrd ered By: Betty Calvin on 07-31-2023 Lymphocytes Auto (Unsp spec) [#/Vol] 1.24 10*3/uL 0.83-4.51 [facility] Basic Metabolic Profile (BMP )on 07-31-2023 BUN/CRE 17.4 RATIO Normal 10-20 [facility] Comment on above: Performed By: #### L 100.0100, L500.2500 ####[facility] [address] [place], [address] CA,Total 9.0 mg/dL Normal 8.5-10.1 [facility] Comment on above: Performed By: #### L 100.0100, L500.2500 ####[facility] [address] [place], [address] Chloride [Moles/Vol] 106 mmol/L Normal 98-107 [facility] Comment on above: Performed By: #### L 100.0100, L500.2500 ####[facility] [address] [place], [address] CO2 [Moles/Vol] 28.0 mmol/L Normal 21.0-32.0 [facility] Comment on above: Performed By: #### L 100.0100, L500.2500 ####[facility] [address] [place], [address] Creatinine [Mass/Vol] 0.86 mg/dL Normal 0.55-1.02 [facility] Comment on above: Result Comment: The validity of the calculated GFR GFRAA in patients over70 years has not been determined. Clinical correlation isessential. Performed By: #### L 100.0100, L500.2500 ####[facility] [address] [place], [address] ECRCL 63.83 ml/min Normal [facility] Comment on above: Performed By: #### L 100.0100, L500.2500 ####[facility] [address] [place], [address] EST GFR - AA 88 mL/min Normal >60 [facility] Comment on above: Result Comment: Afri can Haitian GFR Calc Performed By: #### L 100.0100, L500.2500 ####[facility] [address] [place], [address] GAP 5 Normal 5-15 [facility] Comment on above: Performed By: #### L 100.0100, L500.2500 ####[facility] [address] [place], [address] GFR/1.73 sq M.predicted among non-blacks MDRD (S/P/Bld) [Vol rate/Area] 73 mL/min/{1.73_m2} Normal >60 [facility] Comment on above: Result Comment: Non- GFR Calc Performed By: #### L 100.0100, L500.2500 ####[facility] [address] [place], [address] Glucose [Mass/Vol] 104 mg/dL Normal 74-106 [facility] Comment on above: Result Comment: Fast ing Glucose result from 100 to 125 mg/dLsuggests IMPAIRED HOMEOSTASIS per A.D.A. criteria. Performed By: #### L 100.0100, L500.2500 ####[facility] [address] [place], [address] Potassium [Moles/Vol] 4.2 mmol/L Normal 3.5-5.1 [facility] Comment on above: Performed By: #### L 100.0100, L500.2500 ####[facility] [address] [place], [address] Sodium [Moles/Vol] 139 mmol/L Normal 136-145 [facility] Comment on above: Performed By: #### L 100.0100, L500.2500 ####[facility] [address] [place], [address] Urea nitrogen [Mass/Vol] 15 mg/dL Normal 7-18 [facility] Comment on above: Performed By: #### L 100.0100, L500.2500 ####[facility] [address] [place], [address] Basophil percentageOrdered B y: Bettysim Calvin on 07-31-2023 Basophils/100 WBC (Bld) 0.2 % 0-1 [facility] Chloride [Moles/Vol] 106 mmol/L 98-107 [facility] Eosinophils/100 WBC (Bld) 0.2 % 0-5 [facility] Glucose [Mass/Vol] 104 mg/dL 74-106 [facility] Comment on above: Fasting Glucose resu lt from 100 to 125 mg/dL suggests IMPAIRED HOMEOSTASIS per A.D.A. criteria. Neutrophils (Bld) [#/Vol] 3.9 10*3/uL 2.0-7.7 [facility] Neutrophils/100 WBC (Bld) 66.9 % 47-70 [facility] Potassium [Moles/Vol] 4.2 mmol/L 3.5-5.1 [facility] Sodium [Moles/Vol] 139 mmol/L 136-145 [facility] WBC (Bld) [#/Vol] 5.8 10*3/uL 4.4-11.0 [facility] Blood erythrocytes count (nu mber/volume)Ordered By: Betty Calvin on 07-31-2023 RBC (Bld) [#/Vol] 4.12 10*6/uL 4.2-5.4 [facility] Blood hemoglobin measurement (mass/volume)Ordered By: Betty Calvin on 07-31-2023 Hemoglobin (Bld) [Mass/Vol] 11.1 g/dL 12.0-15.0 [facility] Blood lymphocytes/100 leukoc ytesOrdered By: Betty Calvin on 07-31-2023 Lymphocytes/100 WBC (Bld) 21.3 % 19-41 [facility] Blood monocytes/100 leukocyt esOrdered By: Betty Calvin on 07-31-2023 Monocytes/100 WBC (Bld) 9.3 % 0-10 [facility] Blood platelet mean volumeOr dered By: Betty Calvin on 07-31-2023 Platelet mean volume (Bld) [Entitic vol] 9.3 fL 6.2-12.0 [facility] CBC W/Diff, Automatedon Absolute Lymph 1.24 X10 3/uL Normal 0.83-4.51 [facility] Comment on above: Performed By: #### L 100.0100, L500.2500 ####[facility] [address] [place], [place], [address] Absolute Neut 3.9 X10 3/uL Normal 2.0-7.7 [facility] Comment on above: Performed By: #### L 100.0100, L500.2500 ####[facility] [address] [place], [address] Basophils/100 WBC (Bld) 0.2 % Normal 0-1 [facility] Comment on above: Performed By: #### L 100.0100, L500.2500 ####[facility] [address] [place], [address] Eosinophils/100 WBC (Bld) 0.2 % Normal 0-5 [facility] Comment on above: Performed By: #### L 100.0100, L500.2500 ####[facility] [address] [place], [address] Erythrocyte distribution width (RBC) [Ratio] 14.9 % High 11.6-14.6 [facility] Comment on above: Performed By: #### L 100.0100, L500.2500 ####[facility] [address] [place], [address] Hematocrit (Bld) [Volume fraction] 35.9 % Low 37-47 [facility] Comment on above: Performed By: #### L 100.0100, L500.2500 ####[facility] [address] [place], [address] Hemoglobin (Bld) [Mass/Vol] 11.1 g/dL Low 12.0-15.0 [facility] Comment on above: Performed By: #### L 100.0100, L500.2500 ####[facility] [address] [place], [address] IG% 2.100 High 0.0-0.9 [facility] Comment on above: Result Comment: IG% - Immature Granulocytes (promyelocytes, myelocytes andmetamyelocytes) > 1% indicates that a LEFT SHIFT is Present. Performed By: #### L 100.0100, L500.2500 ####[facility] [address] [place], [address] Lymphocytes/100 WBC (Bld) 21.3 % Normal 19-41 [facility] Comment on above: Performed By: #### L 100.0100, L500.2500 ####[facility] [address] [place], [address] MCH (RBC) [Entitic mass] 26.9 pg Low 27.0-32.0 [facility] Comment on above: Performed By: #### L 100.0100, L500.2500 ####[facility] [address] [place], [address] MCHC (RBC) [Mass/Vol] 30.9 g/dL Low 32-36 [facility] Comment on above: Performed By: #### L 100.0100, L500.2500 ####[facility] [address] [place], [address] MCV (RBC) [Entitic vol] 87.1 fL Normal 81-99 [facility] Comment on above: Performed By: #### L 100.0100, L500.2500 ####[facility] [address] [place], [address] Monocytes/100 WBC (Bld) 9.3 % Normal 0-10 [facility] Comment on above: Performed By: #### L 100.0100, L500.2500 ####[facility] [address] [place], [address] Neutrophils/100 WBC (Bld) 66.9 % Normal 47-70 [facility] Comment on above: Performed By: #### L 100.0100, L500.2500 ####[facility] [address] [place], [address] Nucleated RBC (Bld) [#/Vol] 0 10*3/uL Normal 0-5 [facility] Comment on above: Performed By: #### L 100.0100, L500.2500 ####[facility] [address] [place], [address] Platelet mean volume (Bld) [Entitic vol] 9.3 fL Normal 6.2-12.0 [facility] Comment on above: Performed By: #### L 100.0100, L500.2500 ####[facility] [address] [place], [address] Platelets (Bld) [#/Vol] 208 10*3/uL Normal 150-450 [facility] Comment on above: Performed By: #### L 100.0100, L500.2500 ####[facility] [address] [place], [address] RBC (Bld) [#/Vol] 4.12 10*6/uL Low 4.2-5.4 [facility] Comment on above: Performed By: #### L 100.0100, L500.2500 ####[facility] [address] [place], [address] RDW SD 47.3 fl High 35.1-43.9 [facility] Comment on above: Performed By: #### L 100.0100, L500.2500 ####[facility] [address] [place], [address] WBC (Bld) [#/Vol] 5.8 10*3/uL Normal 4.4-11.0 [facility] Comment on above: Performed By: #### L 100.0100, L500.2500 ####[facility] [address] [place], [address] Determination of erythrocyte mean corpuscular volume (MCV)Ordered By: Betty Calvin on 07-31-2023 MCV (RBC) [Entitic vol] 87.1 fL 81-99 [facility] Discharge Instructionon 09-0 Discharge Instruction Normal [facility] Hematocrit Auto (Bld) [Volum e fraction]Ordered By: Betty Calvin on 07-31-2023 Hematocrit (Bld) [Volume fraction] 35.9 % 37-47 [facility] Laboratory - Chemistry and C hemistry - challengeOrdered By: Betty Calvin on 07-31-2023 CO2 [Moles/Vol] 28.0 mmol/L 21.0-32.0 [facility] Urea nitrogen/Creatinine [Mass ratio] 17.4 mg/mg 10-20 [facility] Laboratory - Hematology and Cell countsOrdered By: Betty Calvin on 07-31-2023 Erythrocyte distribution width (RBC) [Entitic vol] 47.3 fL 35.1-43.9 [facility] Erythrocyte distribution width (RBC) [Ratio] 14.9 % 11.6-14.6 [facility] Immature granulocytes/100 WBC (Bld) 2.100 % 0.0-0.9 [facility] Comment on above: IG% - Immature Granu locytes (promyelocytes, myelocytes and metamyelocytes) > 1% indicates that a LEFT SHIFT is Present. MCH (RBC) [Entitic mass] 26.9 pg 27.0-32.0 [facility] Nucleated RBC/100 WBC (Bld) [Ratio] 0 % 0-5 [facility] MCHC Auto (RBC) [Mass/Vol]Or dered By: Betty Calvin on 07-31-2023 MCHC (RBC) [Mass/Vol] 30.9 g/dL 32-36 [facility] No Panel InformationOrdered By: Betty Calvin on 07-31-2023 Estimated Creatinine Clearance Calc 63.83 ml/min [facility] Estimated GFR (MDRD) Amer 88 mL/min >60 [facility] Comment on above: GFR Calc Estimated GFR (MDRD) Non-Af Amer 73 mL/min >60 [facility] Comment on above: Non- GFR Calc Platelets bldOrdered By: Ira Calvin on 07-31-2023 Platelets (Bld) [#/Vol] 208 10*3/uL 150-450 [facility] Serum or plasma calcium herson urement (mass/volume)Ordered By: Betty Calvin on 07-31-2023 Calcium [Mass/Vol] 9.0 mg/dL 8.5-10.1 [facility] Serum or plasma creatinine m easurement (mass/volume)Ordered By: Betty Calvin on 07-31-2023 Creatinine [Mass/Vol] 0.86 mg/dL 0.55-1.02 [facility] Comment on above: The validity of the calculated GFR & GFRAA in patients over 70 years has not been determined. Clinical correlation is essential. Serum or plasma urea nitroge n measurement (mass/volume)Ordered By: Betty Calvin on 07-31-2023 Urea nitrogen [Mass/Vol] 15 mg/dL 7-18 [facility] Thin prep Papanicolaou smear with manual screeningOrdered By: Betty Calvin on 07-31-2023 Thin prep Papanicolaou smear with manual screening 5 5-15 [facility] Basic Metabolic Profile (BMP )on 07-30-2023 BUN/CRE 16.4 RATIO Normal 10-20 [facility] Comment on above: Performed By: #### L 501.6710, L100.0100, L500.2500, L101.9900 ####[facility] [address] [place], [address] CA,Total 8.9 mg/dL Normal 8.5-10.1 [facility] Comment on above: Performed By: #### L 501.6710, L100.0100, L500.2500, L101.9900 ####[facility] [address] [place], [address] Chloride [Moles/Vol] 107 mmol/L Normal 98-107 [facility] Comment on above: Performed By: #### L 501.6710, L100.0100, L500.2500, L101.9900 ####[facility] [address] [place], [address] CO2 [Moles/Vol] 29.0 mmol/L Normal 21.0-32.0 [facility] Comment on above: Performed By: #### L 501.6710, L100.0100, L500.2500, L101.9900 ####[facility] [address] [place], [address] Creatinine [Mass/Vol] 0.79 mg/dL Normal 0.55-1.02 [facility] Comment on above: Result Comment: The validity of the calculated GFR GFRAA in patients over70 years has not been determined. Clinical correlation isessential. Performed By: #### L 501.6710, L100.0100, L500.2500, L101.9900 ####[facility] [address] [place], [address] ECRCL 69.48 ml/min Normal [facility] Comment on above: Performed By: #### L 501.6710, L100.0100, L500.2500, L101.9900 ####[facility] [address] [place], [address] EST GFR - AA 97 mL/min Normal >60 [facility] Comment on above: Result Comment: Afri can Haitian GFR Calc Performed By: #### L 501.6710, L100.0100, L500.2500, L101.9900 ####[facility] [address] [place], [address] GAP 3 Low 5-15 [facility] Comment on above: Performed By: #### L 501.6710, L100.0100, L500.2500, L101.9900 ####[facility] [address] [place], [address] GFR/1.73 sq M.predicted among non-blacks MDRD (S/P/Bld) [Vol rate/Area] 80 mL/min/{1.73_m2} Normal >60 [facility] Comment on above: Result Comment: Non- GFR Calc Performed By: #### L 501.6710, L100.0100, L500.2500, L101.9900 ####[facility] [address] [place], [address] Glucose [Mass/Vol] 107 mg/dL High 74-106 [facility] Comment on above: Result Comment: Fast ing Glucose result from 100 to 125 mg/dLsuggests IMPAIRED HOMEOSTASIS per A.D.A. criteria. Performed By: #### L 501.6710, L100.0100, L500.2500, L101.9900 ####[facility] [address] [place], [address] Potassium [Moles/Vol] 4.2 mmol/L Normal 3.5-5.1 [facility] Comment on above: Performed By: #### L 501.6710, L100.0100, L500.2500, L101.9900 ####[facility] [address] [place], [address] Sodium [Moles/Vol] 139 mmol/L Normal 136-145 [facility] Comment on above: Performed By: #### L 501.6710, L100.0100, L500.2500, L101.9900 ####[facility] [address] [place], [address] Urea nitrogen [Mass/Vol] 13 mg/dL Normal 7-18 [facility] Comment on above: Performed By: #### L 501.6710, L100.0100, L500.2500, L101.9900 ####[facility] [address] [place], [address] CBC W/Diff, Automatedon 08-3 Absolute Lymph 1.23 X10 3/uL Normal 0.83-4.51 [facility] Comment on above: Performed By: #### L 501.6710, L100.0100, L500.2500, L101.9900 ####[facility] [address] [place], [address] Absolute Neut 3.9 X10 3/uL Normal 2.0-7.7 [facility] Comment on above: Performed By: #### L 501.6710, L100.0100, L500.2500, L101.9900 ####[facility] [address] [place], [address] Basophils/100 WBC (Bld) 0.3 % Normal 0-1 [facility] Comment on above: Performed By: #### L 501.6710, L100.0100, L500.2500, L101.9900 ####[facility] [address] [place], [address] Eosinophils/100 WBC (Bld) 0.2 % Normal 0-5 [facility] Comment on above: Performed By: #### L 501.6710, L100.0100, L500.2500, L101.9900 ####[facility] [address] [place], [address] Erythrocyte distribution width (RBC) [Ratio] 15.0 % High 11.6-14.6 [facility] Comment on above: Performed By: #### L 501.6710, L100.0100, L500.2500, L101.9900 ####[facility] [address] [place], [address] Hematocrit (Bld) [Volume fraction] 36.1 % Low 37-47 [facility] Comment on above: Performed By: #### L 501.6710, L100.0100, L500.2500, L101.9900 ####[facility] [address] [place], [address] Hemoglobin (Bld) [Mass/Vol] 11.0 g/dL Low 12.0-15.0 [facility] Comment on above: Performed By: #### L 501.6710, L100.0100, L500.2500, L101.9900 ####[facility] [address] [place], [address] IG% 1.700 High 0.0-0.9 [facility] Comment on above: Result Comment: IG% - Immature Granulocytes (promyelocytes, myelocytes andmetamyelocytes) > 1% indicates that a LEFT SHIFT is Present. Performed By: #### L 501.6710, L100.0100, L500.2500, L101.9900 ####[facility] [address] [place], [address] Lymphocytes/100 WBC (Bld) 20.6 % Normal 19-41 [facility] Comment on above: Performed By: #### L 501.6710, L100.0100, L500.2500, L101.9900 ####[facility] [address] [place], [address] MCH (RBC) [Entitic mass] 27.2 pg Normal 27.0-32.0 [facility] Comment on above: Performed By: #### L 501.6710, L100.0100, L500.2500, L101.9900 ####[facility] [address] [place], [address] MCHC (RBC) [Mass/Vol] 30.5 g/dL Low 32-36 [facility] Comment on above: Performed By: #### L 501.6710, L100.0100, L500.2500, L101.9900 ####[facility] [address] [place], [address] MCV (RBC) [Entitic vol] 89.4 fL Normal 81-99 [facility] Comment on above: Performed By: #### L 501.6710, L100.0100, L500.2500, L101.9900 ####[facility] [address] [place], [address] Monocytes/100 WBC (Bld) 11.2 % High 0-10 [facility] Comment on above: Performed By: #### L 501.6710, L100.0100, L500.2500, L101.9900 ####[facility] [address] [place], [address] Neutrophils/100 WBC (Bld) 66.0 % Normal 47-70 [facility] Comment on above: Performed By: #### L 501.6710, L100.0100, L500.2500, L101.9900 ####[facility] [address] [place], [address] Nucleated RBC (Bld) [#/Vol] 0 10*3/uL Normal 0-5 [facility] Comment on above: Performed By: #### L 501.6710, L100.0100, L500.2500, L101.9900 ####[facility] [address] [place], [address] Platelet mean volume (Bld) [Entitic vol] 9.4 fL Normal 6.2-12.0 [facility] Comment on above: Performed By: #### L 501.6710, L100.0100, L500.2500, L101.9900 ####[facility] [address] [place], [address] Platelets (Bld) [#/Vol] 184 10*3/uL Normal 150-450 [facility] Comment on above: Performed By: #### L 501.6710, L100.0100, L500.2500, L101.9900 ####[facility] [address] [place], [address] RBC (Bld) [#/Vol] 4.04 10*6/uL Low 4.2-5.4 [facility] Comment on above: Performed By: #### L 501.6710, L100.0100, L500.2500, L101.9900 ####[facility] [address] [place], [address] RDW SD 49.1 fl High 35.1-43.9 [facility] Comment on above: Performed By: #### L 501.6710, L100.0100, L500.2500, L101.9900 ####[facility] [address] [place], [address] WBC (Bld) [#/Vol] 6.0 10*3/uL Normal 4.4-11.0 [facility] Comment on above: Performed By: #### L 501.6710, L100.0100, L500.2500, L101.9900 ####[facility] [address] [place], [address] CRPon 07-30-2023 C-REACTIVE PROT 120.00 mg/L High 0.0-3.0 [facility] Comment on above: Result Comment: C-Re active Protein (CRP) provides useful information for thediagnosis, therapy and monitoring of inflammatory processesand associated diseases. For the evaluation of Relative Riskfor Cardiovascular Disease, a High Sensitivity CRP (HSCRP)should be ordered. Performed By: #### L 501.6710, L100.0100, L500.2500, L101.9900 ####[facility] [address] [place], [address] Erythrocyte Sed Rateon 07-30 SED RATE 55 mm/hr High 0-30 [facility] Comment on above: Performed By: #### L 501.6710, L100.0100, L500.2500, L101.9900 ####[facility] [address] [place], [address] Erythrocyte sedimentation ra teOrdered By: Betty Calvin on 07-30-2023 ESR (Bld) [Velocity] 55 mm/h 0-30 [facility] Serum or plasma C reactive p rotein measurement (mass/volume)Ordered By: Betty Calvin on 07-30-2023 CRP [Mass/Vol] 120.00 mg/L 0.0-3.0 [facility] Comment on above: C-Reactive Protein ( CRP) provides useful information for thediagnosis, therapy and monitoring of inflammatory processesand associated diseases. For the evaluation of Relative Riskfor Cardiovascular Disease, a High Sensitivity CRP (HSCRP)should be ordered. Basic Metabolic Profile (BMP )on 07-29-2023 BUN/CRE 13.8 RATIO Normal 10-20 [facility] Comment on above: Performed By: #### L 500.2500, L101.9900, L100.0100, L501.6710 ####[facility] [address] [facility] [address] CA,Total 8.7 mg/dL Normal 8.5-10.1 [facility] Comment on above: Performed By: #### L 500.2500, L101.9900, L100.0100, L501.6710 ####[facility] [address] [facility] [address] Chloride [Moles/Vol] 106 mmol/L Normal 98-107 [facility] Comment on above: Performed By: #### L 500.2500, L101.9900, L100.0100, L501.6710 ####[facility] [address] [facility] [address] CO2 [Moles/Vol] 27.0 mmol/L Normal 21.0-32.0 [facility] Comment on above: Performed By: #### L 500.2500, L101.9900, L100.0100, L501.6710 ####[facility] [address] [place], [address] Creatinine [Mass/Vol] 0.72 mg/dL Normal 0.55-1.02 [facility] Comment on above: Result Comment: The validity of the calculated GFR GFRAA in patients over70 years has not been determined. Clinical correlation isessential. Performed By: #### L 500.2500, L101.9900, L100.0100, L501.6710 ####[facility] [address] [place], [address] ECRCL 76.24 ml/min Normal [facility] Comment on above: Performed By: #### L 500.2500, L101.9900, L100.0100, L501.6710 ####[facility] [address] [place], [address] EST GFR - AA 107 mL/min Normal >60 [facility] Comment on above: Result Comment: Afri can Haitian GFR Calc Performed By: #### L 500.2500, L101.9900, L100.0100, L501.6710 ####[facility] [address] [place], [address] GAP 5 Normal 5-15 [facility] Comment on above: Performed By: #### L 500.2500, L101.9900, L100.0100, L501.6710 ####[facility] [address] [place], [address] GFR/1.73 sq M.predicted among non-blacks MDRD (S/P/Bld) [Vol rate/Area] 89 mL/min/{1.73_m2} Normal >60 [facility] Comment on above: Result Comment: Non- GFR Calc Performed By: #### L 500.2500, L101.9900, L100.0100, L501.6710 ####[facility] [address] [place], [address] Glucose [Mass/Vol] 109 mg/dL High 74-106 [facility] Comment on above: Result Comment: Fast ing Glucose result from 100 to 125 mg/dLsuggests IMPAIRED HOMEOSTASIS per A.D.A. criteria. Performed By: #### L 500.2500, L101.9900, L100.0100, L501.6710 ####[facility] [address] [place], [address] Potassium [Moles/Vol] 3.7 mmol/L Normal 3.5-5.1 [facility] Comment on above: Performed By: #### L 500.2500, L101.9900, L100.0100, L501.6710 ####[facility] [address] [place], [address] Sodium [Moles/Vol] 138 mmol/L Normal 136-145 [facility] Comment on above: Performed By: #### L 500.2500, L101.9900, L100.0100, L501.6710 ####[facility] [address] [place], [address] Urea nitrogen [Mass/Vol] 10 mg/dL Normal 7-18 [facility] Comment on above: Performed By: #### L 500.2500, L101.9900, L100.0100, L501.6710 ####[facility] [address] [place], [address] CBC W/Diff, Automatedon 08-3 0-2023 Absolute Lymph 0.95 X10 3/uL Normal 0.83-4.51 [facility] Comment on above: Performed By: #### L 500.2500, L101.9900, L100.0100, L501.6710 ####[facility] [address] [place], [address] Absolute Neut 3.7 X10 3/uL Normal 2.0-7.7 [facility] Comment on above: Performed By: #### L 500.2500, L101.9900, L100.0100, L501.6710 ####[facility] [address] [place], [address] Basophils/100 WBC (Bld) 0.2 % Normal 0-1 [facility] Comment on above: Performed By: #### L 500.2500, L101.9900, L100.0100, L501.6710 ####[facility] [address] [place], [address] Eosinophils/100 WBC (Bld) 0.2 % Normal 0-5 [facility] Comment on above: Performed By: #### L 500.2500, L101.9900, L100.0100, L501.6710 ####[facility] [address] [place], [address] Erythrocyte distribution width (RBC) [Ratio] 14.9 % High 11.6-14.6 [facility] Comment on above: Performed By: #### L 500.2500, L101.9900, L100.0100, L501.6710 ####[facility] [address] [place], [address] Hematocrit (Bld) [Volume fraction] 33.8 % Low 37-47 [facility] Comment on above: Performed By: #### L 500.2500, L101.9900, L100.0100, L501.6710 ####[facility] [address] [place], [address] Hemoglobin (Bld) [Mass/Vol] 10.5 g/dL Low 12.0-15.0 [facility] Comment on above: Performed By: #### L 500.2500, L101.9900, L100.0100, L501.6710 ####[facility] [address] [place], [address] IG% 0.900 Normal 0.0-0.9 [facility] Comment on above: Result Comment: IG% - Immature Granulocytes (promyelocytes, myelocytes andmetamyelocytes) > 1% indicates that a LEFT SHIFT is Present. Performed By: #### L 500.2500, L101.9900, L100.0100, L501.6710 ####[facility] [address] [place], [address] Lymphocytes/100 WBC (Bld) 17.9 % Low 19-41 [facility] Comment on above: Performed By: #### L 500.2500, L101.9900, L100.0100, L501.6710 ####[facility] [address] [place], [address] MCH (RBC) [Entitic mass] 27.3 pg Normal 27.0-32.0 [facility] Comment on above: Performed By: #### L 500.2500, L101.9900, L100.0100, L501.6710 ####[facility] [address] [place], [address] MCHC (RBC) [Mass/Vol] 31.1 g/dL Low 32-36 [facility] Comment on above: Performed By: #### L 500.2500, L101.9900, L100.0100, L501.6710 ####[facility] [address] [place], [address] MCV (RBC) [Entitic vol] 87.8 fL Normal 81-99 [facility] Comment on above: Performed By: #### L 500.2500, L101.9900, L100.0100, L501.6710 ####[facility] [address] [place], [address] Monocytes/100 WBC (Bld) 10.9 % High 0-10 [facility] Comment on above: Performed By: #### L 500.2500, L101.9900, L100.0100, L501.6710 ####[facility] [address] [place], [address] Neutrophils/100 WBC (Bld) 69.9 % Normal 47-70 [facility] Comment on above: Performed By: #### L 500.2500, L101.9900, L100.0100, L501.6710 ####[facility] [address] [place], [address] Nucleated RBC (Bld) [#/Vol] 0 10*3/uL Normal 0-5 [facility] Comment on above: Performed By: #### L 500.2500, L101.9900, L100.0100, L501.6710 ####[facility] [address] [place], [address] Platelet mean volume (Bld) [Entitic vol] 9.8 fL Normal 6.2-12.0 [facility] Comment on above: Performed By: #### L 500.2500, L101.9900, L100.0100, L501.6710 ####[facility] [address] [place], [address] Platelets (Bld) [#/Vol] 180 10*3/uL Normal 150-450 [facility] Comment on above: Performed By: #### L 500.2500, L101.9900, L100.0100, L501.6710 ####[facility] [address] [place], [address] RBC (Bld) [#/Vol] 3.85 10*6/uL Low 4.2-5.4 [facility] Comment on above: Performed By: #### L 500.2500, L101.9900, L100.0100, L501.6710 ####[facility] [address] [place], [address] RDW SD 48.2 fl High 35.1-43.9 [facility] Comment on above: Performed By: #### L 500.2500, L101.9900, L100.0100, L501.6710 ####[facility] [address] [place], [address] WBC (Bld) [#/Vol] 5.3 10*3/uL Normal 4.4-11.0 [facility] Comment on above: Performed By: #### L 500.2500, L101.9900, L100.0100, L501.6710 ####[facility] [address] [place], [address] CRPon 07-29-2023 C-REACTIVE PROT 164.00 mg/L High 0.0-3.0 [facility] Comment on above: Result Comment: C-Re active Protein (CRP) provides useful information for thediagnosis, therapy and monitoring of inflammatory processesand associated diseases. For the evaluation of Relative Riskfor Cardiovascular Disease, a High Sensitivity CRP (HSCRP)should be ordered. Performed By: #### L 500.2500, L101.9900, L100.0100, L501.6710 ####[facility] [address] [place], [address] Echo Complete W/ Contraston 07-29-2023 Echo Complete W/ Contrast Normal [facility] Erythrocyte Sed Rateon 07-29 SED RATE 57 mm/hr High 0-30 [facility] Comment on above: Performed By: #### L 500.2500, L101.9900, L100.0100, L501.6710 ####[facility] [address] [place], [address] BNP,B-Type NATRIURETIC PEPTI DEOrdered By: Betty Calvin on 07-28-2023 Natriuretic peptide B (Bld) [Mass/Vol] 232.8 pg/mL High 0-100 [facility] Comment on above: Performed By: #### L 503.6620 ####[facility] [address] [place], [address] Basic Metabolic Profile (BMP )on 07-28-2023 BUN/CRE 10.5 RATIO Normal 10-20 [facility] Comment on above: Performed By: #### L 500.2500, L100.0100 ####[facility] [address] [place], [address] CA,Total 8.8 mg/dL Normal 8.5-10.1 [facility] Comment on above: Performed By: #### L 500.2500, L100.0100 ####[facility] [address] [place], [address] Chloride [Moles/Vol] 107 mmol/L Normal 98-107 [facility] Comment on above: Performed By: #### L 500.2500, L100.0100 ####[facility] [address] [place], [address] CO2 [Moles/Vol] 25.0 mmol/L Normal 21.0-32.0 [facility] Comment on above: Performed By: #### L 500.2500, L100.0100 ####[facility] [address] [place], [address] Creatinine [Mass/Vol] 0.66 mg/dL Normal 0.55-1.02 [facility] Comment on above: Result Comment: The validity of the calculated GFR GFRAA in patients over70 years has not been determined. Clinical correlation isessential. Performed By: #### L 500.2500, L100.0100 ####[facility] [address] [place], [address] ECRCL 83.17 ml/min Normal [facility] Comment on above: Performed By: #### L 500.2500, L100.0100 ####[facility] [address] [place], [address] EST GFR - AA 118 mL/min Normal >60 [facility] Comment on above: Result Comment: Afri can Haitian GFR Calc Performed By: #### L 500.2500, L100.0100 ####[facility] [address] [place], [address] GAP 6 Normal 5-15 [facility] Comment on above: Performed By: #### L 500.2500, L100.0100 ####[facility] [address] [place], [address] GFR/1.73 sq M.predicted among non-blacks MDRD (S/P/Bld) [Vol rate/Area] 98 mL/min/{1.73_m2} Normal >60 [facility] Comment on above: Result Comment: Non- GFR Calc Performed By: #### L 500.2500, L100.0100 ####[facility] [address] [place], [address] Glucose [Mass/Vol] 106 mg/dL Normal 74-106 [facility] Comment on above: Result Comment: Fast ing Glucose result from 100 to 125 mg/dLsuggests IMPAIRED HOMEOSTASIS per A.D.A. criteria. Performed By: #### L 500.2500, L100.0100 ####[facility] [address] [place], [address] Potassium [Moles/Vol] 3.9 mmol/L Normal 3.5-5.1 [facility] Comment on above: Performed By: #### L 500.2500, L100.0100 ####[facility] [address] [place], [address] Sodium [Moles/Vol] 138 mmol/L Normal 136-145 [facility] Comment on above: Performed By: #### L 500.2500, L100.0100 ####[facility] [address] [place], [address] Urea nitrogen [Mass/Vol] 7 mg/dL Normal 7-18 [facility] Comment on above: Performed By: #### L 500.2500, L100.0100 ####[facility] [address] [place], [address] CBC W/Diff, Automatedon 07-01 Absolute Lymph 0.97 X10 3/uL Normal 0.83-4.51 [facility] Comment on above: Performed By: #### L 500.2500, L100.0100 ####[facility] [address] [place], [address] Absolute Neut 4.2 X10 3/uL Normal 2.0-7.7 [facility] Comment on above: Performed By: #### L 500.2500, L100.0100 ####[facility] [address] [place], [address] Basophils/100 WBC (Bld) 0.2 % Normal 0-1 [facility] Comment on above: Performed By: #### L 500.2500, L100.0100 ####[facility] [address] [place], [address] Eosinophils/100 WBC (Bld) 0.2 % Normal 0-5 [facility] Comment on above: Performed By: #### L 500.2500, L100.0100 ####[facility] [address] [place], [address] Erythrocyte distribution width (RBC) [Ratio] 15.2 % High 11.6-14.6 [facility] Comment on above: Performed By: #### L 500.2500, L100.0100 ####[facility] [address] [place], [address] Hematocrit (Bld) [Volume fraction] 33.8 % Low 37-47 [facility] Comment on above: Performed By: #### L 500.2500, L100.0100 ####[facility] [address] [place], [address] Hemoglobin (Bld) [Mass/Vol] 10.5 g/dL Low 12.0-15.0 [facility] Comment on above: Performed By: #### L 500.2500, L100.0100 ####[facility] [address] [place], [address] IG% 0.700 Normal 0.0-0.9 [facility] Comment on above: Result Comment: IG% - Immature Granulocytes (promyelocytes, myelocytes andmetamyelocytes) > 1% indicates that a LEFT SHIFT is Present. Performed By: #### L 500.2500, L100.0100 ####[facility] [address] [place], [address] Lymphocytes/100 WBC (Bld) 16.6 % Low 19-41 [facility] Comment on above: Performed By: #### L 500.2500, L100.0100 ####[facility] [address] [place], [address] MCH (RBC) [Entitic mass] 27.1 pg Normal 27.0-32.0 [facility] Comment on above: Performed By: #### L 500.2500, L100.0100 ####[facility] [address] [place], [address] MCHC (RBC) [Mass/Vol] 31.1 g/dL Low 32-36 [facility] Comment on above: Performed By: #### L 500.2500, L100.0100 ####[facility] [address] [place], [address] MCV (RBC) [Entitic vol] 87.3 fL Normal 81-99 [facility] Comment on above: Performed By: #### L 500.2500, L100.0100 ####[facility] [address] [place], [address] Monocytes/100 WBC (Bld) 11.3 % High 0-10 [facility] Comment on above: Performed By: #### L 500.2500, L100.0100 ####[facility] [address] [place], [address] Neutrophils/100 WBC (Bld) 71.0 % High 47-70 [facility] Comment on above: Performed By: #### L 500.2500, L100.0100 ####[facility] [address] [place], [address] Nucleated RBC (Bld) [#/Vol] 0 10*3/uL Normal 0-5 [facility] Comment on above: Performed By: #### L 500.2500, L100.0100 ####[facility] [address] [place], [address] Platelet mean volume (Bld) [Entitic vol] 10.3 fL Normal 6.2-12.0 [facility] Comment on above: Performed By: #### L 500.2500, L100.0100 ####[facility] [address] [place], [address] Platelets (Bld) [#/Vol] 175 10*3/uL Normal 150-450 [facility] Comment on above: Performed By: #### L 500.2500, L100.0100 ####[facility] [address] [place], [address] RBC (Bld) [#/Vol] 3.87 10*6/uL Low 4.2-5.4 [facility] Comment on above: Performed By: #### L 500.2500, L100.0100 ####[facility] [address] [place], [address] RDW SD 48.9 fl High 35.1-43.9 [facility] Comment on above: Performed By: #### L 500.2500, L100.0100 ####[facility] [address] [place], [address] WBC (Bld) [#/Vol] 5.9 10*3/uL Normal 4.4-11.0 [facility] Comment on above: Performed By: #### L 500.2500, L100.0100 ####[facility] [address] [place], [address] Chest 1 View (Portable)on Chest 1 View (Portable) Normal [facility] Basic Metabolic Profile (BMP )on 07-27-2023 BUN/CRE 11.1 RATIO Normal 10-20 [facility] Comment on above: Performed By: #### L 500.2500, L101.9900, L100.0100, [id number] ####[facility] [address] [place], [address] CA,Total 8.1 mg/dL Low 8.5-10.1 [facility] Comment on above: Performed By: #### L 500.2500, L101.9900, L100.0100, [id number] ####[facility] [address] [place], [address] Chloride [Moles/Vol] 108 mmol/L High 98-107 [facility] Comment on above: Performed By: #### L 500.2500, L101.9900, L100.0100, [id number] ####[facility] [address] [place], [address] CO2 [Moles/Vol] 27.0 mmol/L Normal 21.0-32.0 [facility] Comment on above: Performed By: #### L 500.2500, L101.9900, L100.0100, [id number] ####[facility] [address] [place], [address] Creatinine [Mass/Vol] 0.72 mg/dL Normal 0.55-1.02 [facility] Comment on above: Result Comment: The validity of the calculated GFR GFRAA in patients over70 years has not been determined. Clinical correlation isessential. Performed By: #### L 500.2500, L101.9900, L100.0100, [id number] ####[facility] [address] [place], [address] ECRCL 76.24 ml/min Normal [facility] Comment on above: Performed By: #### L 500.2500, L101.9900, L100.0100, [id number] ####[facility] [address] [place], [address] EST GFR - AA 108 mL/min Normal >60 [facility] Comment on above: Result Comment: Afri can Haitian GFR Calc Performed By: #### L 500.2500, L101.9900, L100.0100, [id number] ####[facility] [address] [place], [address] GAP 3 Low 5-15 [facility] Comment on above: Performed By: #### L 500.2500, L101.9900, L100.0100, [id number] ####[facility] [address] [place], [address] GFR/1.73 sq M.predicted among non-blacks MDRD (S/P/Bld) [Vol rate/Area] 89 mL/min/{1.73_m2} Normal >60 [facility] Comment on above: Result Comment: Non- GFR Calc Performed By: #### L 500.2500, L101.9900, L100.0100, [id number] ####[facility] [address] [place], [address] Glucose [Mass/Vol] 110 mg/dL High 74-106 [facility] Comment on above: Result Comment: Fast ing Glucose result from 100 to 125 mg/dLsuggests IMPAIRED HOMEOSTASIS per A.D.A. criteria. Performed By: #### L 500.2500, L101.9900, L100.0100, [id number] ####[facility] [address] [place], [address] Potassium [Moles/Vol] 3.9 mmol/L Normal 3.5-5.1 [facility] Comment on above: Performed By: #### L 500.2500, L101.9900, L100.0100, [id number] ####[facility] [address] [place], [address] Sodium [Moles/Vol] 138 mmol/L Normal 136-145 [facility] Comment on above: Performed By: #### L 500.2500, L101.9900, L100.0100, [id number] ####[facility] [address] [place], [address] Urea nitrogen [Mass/Vol] 8 mg/dL Normal 7-18 [facility] Comment on above: Performed By: #### L 500.2500, L101.9900, L100.0100, [id number] ####[facility] [address] [place], [address] CBC W/Diff, Automatedon 07-01 Absolute Lymph 0.93 X10 3/uL Normal 0.83-4.51 [facility] Comment on above: Performed By: #### L 500.2500, L101.9900, L100.0100, [id number] ####[facility] [address] [place], [address] Absolute Neut 4.7 X10 3/uL Normal 2.0-7.7 [facility] Comment on above: Performed By: #### L 500.2500, L101.9900, L100.0100, [id number] ####[facility] [address] [place], [address] Basophils/100 WBC (Bld) 0.2 % Normal 0-1 [facility] Comment on above: Performed By: #### L 500.2500, L101.9900, L100.0100, [id number] ####[facility] [address] [place], [address] Eosinophils/100 WBC (Bld) 0.2 % Normal 0-5 [facility] Comment on above: Performed By: #### L 500.2500, L101.9900, L100.0100, [id number] ####[facility] [address] [place], [address] Erythrocyte distribution width (RBC) [Ratio] 15.5 % High 11.6-14.6 [facility] Comment on above: Performed By: #### L 500.2500, L101.9900, L100.0100, [id number] ####[facility] [address] [place], [address] Hematocrit (Bld) [Volume fraction] 33.6 % Low 37-47 [facility] Comment on above: Performed By: #### L 500.2500, L101.9900, L100.0100, [id number] ####[facility] [address] [place], [address] Hemoglobin (Bld) [Mass/Vol] 10.3 g/dL Low 12.0-15.0 [facility] Comment on above: Performed By: #### L 500.2500, L101.9900, L100.0100, [id number] ####[facility] [address] [place], [address] IG% 0.600 Normal 0.0-0.9 [facility] Comment on above: Result Comment: IG% - Immature Granulocytes (promyelocytes, myelocytes andmetamyelocytes) > 1% indicates that a LEFT SHIFT is Present. Performed By: #### L 500.2500, L101.9900, L100.0100, [id number] ####[facility] [address] [place], [address] Lymphocytes/100 WBC (Bld) 14.6 % Low 19-41 [facility] Comment on above: Performed By: #### L 500.2500, L101.9900, L100.0100, [id number] ####[facility] [address] [place], [address] MCH (RBC) [Entitic mass] 27.2 pg Normal 27.0-32.0 [facility] Comment on above: Performed By: #### L 500.2500, L101.9900, L100.0100, [id number] ####[facility] [address] [place], [address] MCHC (RBC) [Mass/Vol] 30.7 g/dL Low 32-36 [facility] Comment on above: Performed By: #### L 500.2500, L101.9900, L100.0100, [id number] ####[facility] [address] [place], [address] MCV (RBC) [Entitic vol] 88.9 fL Normal 81-99 [facility] Comment on above: Performed By: #### L 500.2500, L101.9900, L100.0100, [id number] ####[facility] [address] [place], [address] Monocytes/100 WBC (Bld) 10.7 % High 0-10 [facility] Comment on above: Performed By: #### L 500.2500, L101.9900, L100.0100, [id number] ####[facility] [address] [place], [address] Neutrophils/100 WBC (Bld) 73.7 % High 47-70 [facility] Comment on above: Performed By: #### L 500.2500, L101.9900, L100.0100, [id number] ####[facility] [address] [place], [address] Nucleated RBC (Bld) [#/Vol] 0 10*3/uL Normal 0-5 [facility] Comment on above: Performed By: #### L 500.2500, L101.9900, L100.0100, [id number] ####[facility] [address] [place], [address] Platelet mean volume (Bld) [Entitic vol] 10.2 fL Normal 6.2-12.0 [facility] Comment on above: Performed By: #### L 500.2500, L101.9900, L100.0100, [id number] ####[facility] [address] [place], [address] Platelets (Bld) [#/Vol] 163 10*3/uL Normal 150-450 [facility] Comment on above: Performed By: #### L 500.2500, L101.9900, L100.0100, [id number] ####[facility] [address] [place], [address] RBC (Bld) [#/Vol] 3.78 10*6/uL Low 4.2-5.4 [facility] Comment on above: Performed By: #### L 500.2500, L101.9900, L100.0100, [id number] ####[facility] [address] [place], [address] RDW SD 50.8 fl High 35.1-43.9 [facility] Comment on above: Performed By: #### L 500.2500, L101.9900, L100.0100, [id number] ####[facility] [address] [place], [address] WBC (Bld) [#/Vol] 6.4 10*3/uL Normal 4.4-11.0 [facility] Comment on above: Performed By: #### L 500.2500, L101.9900, L100.0100, [id number] ####[facility] [address] [place], [address] CRPon 07-27-2023 C-REACTIVE PROT 138.00 mg/L High 0.0-3.0 [facility] Comment on above: Result Comment: C-Re active Protein (CRP) provides useful information for thediagnosis, therapy and monitoring of inflammatory processesand associated diseases. For the evaluation of Relative Riskfor Cardiovascular Disease, a High Sensitivity CRP (HSCRP)should be ordered. Performed By: #### L 500.2500, L101.9900, L100.0100, [id number] ####[facility] [address] [place], [place], [address] Consultation - Infectious Dx on 07-27-2023 Consultation - Infectious Dx Normal [facility] Erythrocyte Sed Rateon 07-27 SED RATE 47 mm/hr High 0-30 [facility] Comment on above: Performed By: #### L 500.2500, L101.9900, L100.0100, [id number] ####[facility] [address] [place], [place], [address] No Panel InformationOrdered By: Adrianna Mejia on 07-26-2023 Methicillin-Resist S.aureus DNA PCR Negative Negative [facility] Staphylococcus aureus DNA de tection by probe and target amplification methodOrdered By: Adrianna Mejia on 07-26-2023 S. aureus DNA CHANTELL+probe Ql (Unsp spec) Positive Negative [facility] Vancomycin troughOrdered By: Betty Calvin on 07-26-2023 Vancomycin trough [Mass/Vol] 15.1 ug/mL 5.0-15.0 [facility] Comment on above: VANCOMYCIN STANDARED DRUG THERAPY TROUGH LEVEL: 5.0 - 15.0 mg/L VANCOMYCIN HIGH INTENSITY THERAPY TROUGH LEVEL: 15.0 - 20.0 mg/L High Intensity therapy recommended for serious lifethreatening infections include:- Ofwqlsudxv-Mzmgruqogqgv-Miovuiosh (Ventilator/Healtcare Associated)-Sepsis PLEASE CONTACT PHARMACY SERVICES (#[id number]) FOR INTERPRETATIONOF RESULTS. Basophil percentageOrdered B y: Betty Calvin on 07-25-2023 Bilirubin [Mass/Vol] 0.60 mg/dL 0.20-1.00 [facility] Comment on above: For patients on eltr ombopag therapy, use of Dimension [place] TBIL is not recommended. Lactate [Moles/Vol] 1.5 mmol/L 0.4-2.0 [facility] Protein [Mass/Vol] 7.0 g/dL 6.4-8.2 [facility] Basophil percentageOrdered B y: Adrianna Mejia on 07-25-2023 Basophil percentage 2.9 mg/dL 2.5-4.9 [facility] Blood manual differential co mment interpretation (narrative result)Ordered By: Adrianna Mejia on 07-25-2023 Manual differential comment Terry (Bld) [Interp] SCANNED [facility] Comment on above: LYMPHOPENIA PRESENT Laboratory - Chemistry and C hemistry - challengeOrdered By: Betty Calvin on 07-25-2023 ALP [Catalytic activity/Vol] 71 U/L 45-117 [facility] ALT [Catalytic activity/Vol] 20 U/L 13-56 [facility] Globulin (S) [Mass/Vol] 3.9 g/dL 2.2-4.2 [facility] Laboratory - Chemistry and C hemistry - challengeOrdered By: Adrianna Mejia on 07-25-2023 Magnesium [Mass/Vol] 1.8 mg/dL 1.6-2.6 [facility] Laboratory - Microbiology an d Antimicrobial susceptibilityOrdered By: Betty Calvin on 07-25-2023 Bacteria identified Cx Nom (Bld) No growth in 5 days. [facility] No Panel InformationOrdered By: Adrianna Mejia on 07-25-2023 Thyroid Stimulating Hormone (TSH) 1.67 uIU/mL 0.358-3.74 [facility] Serum or plasma albumin herson urement (mass/volume)Ordered By: Betty Calvin on 07-25-2023 Albumin [Mass/Vol] 3.1 g/dL 3.2-5.0 [facility] Serum or plasma albumin/glob ulin mass ratioOrdered By: Betty Calvin on 07-25-2023 Albumin/Globulin [Mass ratio] 0.8 {ratio} 0.9-2.4 [facility] Serum procalcitonin measurem entOrdered By: Betty Calvin on 07-25-2023 Procalcitonin [Mass/Vol] 0.10 ng/mL 0.00-0.09 [facility] Comment on above: A procalcitonin (PCT [...] smear with manual screening 14 U/L 15-37 [facility] Absolute lymphocyte countOrd ered By: Arthur Lara on 07-24-2023 Lymphocytes Auto (Unsp spec) [#/Vol] 0.90 10*3/uL 0.83-4.51 [facility] Basophil percentageOrdered B y: Arthur Lara on 07-24-2023 Basophils/100 WBC (Bld) 0.1 % 0-1 [facility] Bilirubin [Mass/Vol] 0.30 mg/dL 0.20-1.00 [facility] Comment on above: For patients on eltr ombopag therapy, use of Dimension [place] TBIL is not recommended. Chloride [Moles/Vol] 107 mmol/L 98-107 [facility] Eosinophils/100 WBC (Bld) 0.0 % 0-5 [facility] Glucose [Mass/Vol] 118 mg/dL 74-106 [facility] Comment on above: Fasting Glucose resu lt from 100 to 125 mg/dL suggests IMPAIRED HOMEOSTASIS per A.D.A. criteria. Lactate [Moles/Vol] 1.6 mmol/L 0.4-2.0 [facility] Neutrophils (Bld) [#/Vol] 9.4 10*3/uL 2.0-7.7 [facility] Neutrophils/100 WBC (Bld) 84.5 % 47-70 [facility] Potassium [Moles/Vol] 4.2 mmol/L 3.5-5.1 [facility] Protein [Mass/Vol] 7.1 g/dL 6.4-8.2 [facility] Sodium [Moles/Vol] 138 mmol/L 136-145 [facility] WBC (Bld) [#/Vol] 11.1 10*3/uL 4.4-11.0 [facility] Blood erythrocytes count (nu mber/volume)Ordered By: Arthur Lara on 07-24-2023 RBC (Bld) [#/Vol] 4.40 10*6/uL 4.2-5.4 [facility] Blood hemoglobin measurement (mass/volume)Ordered By: Arthur Lara on 07-24-2023 Hemoglobin (Bld) [Mass/Vol] 12.2 g/dL 12.0-15.0 [facility] Blood lymphocytes/100 leukoc ytesOrdered By: Arthur Lara on 07-24-2023 Lymphocytes/100 WBC (Bld) 8.1 % 19-41 [facility] Blood monocytes/100 leukocyt esOrdered By: Arthur Lara on 07-24-2023 Monocytes/100 WBC (Bld) 6.7 % 0-10 [facility] Blood platelet mean volumeOr dered By: Arthur Lara on 07-24-2023 Platelet mean volume (Bld) [Entitic vol] 9.2 fL 6.2-12.0 [facility] Determination of erythrocyte mean corpuscular volume (MCV)Ordered By: Arthur Lara on 07-24-2023 MCV (RBC) [Entitic vol] 86.4 fL 81-99 [facility] Erythrocyte sedimentation ra teOrdered By: Adrianna Mejia on 07-24-2023 ESR (Bld) [Velocity] 35 mm/h 0-30 [facility] Hematocrit Auto (Bld) [Volum e fraction]Ordered By: Arthur Lara on 07-24-2023 Hematocrit (Bld) [Volume fraction] 38.0 % 37-47 [facility] Laboratory - Chemistry and C hemistry - challengeOrdered By: Arthur Lara on 07-24-2023 ALP [Catalytic activity/Vol] 87 U/L 45-117 [facility] ALT [Catalytic activity/Vol] 19 U/L 13-56 [facility] CO2 [Moles/Vol] 28.0 mmol/L 21.0-32.0 [facility] Globulin (S) [Mass/Vol] 3.9 g/dL 2.2-4.2 [facility] Urea nitrogen/Creatinine [Mass ratio] 23.4 mg/mg 10-20 [facility] Laboratory - Hematology and Cell countsOrdered By: Arthur Lara on 07-24-2023 Erythrocyte distribution width (RBC) [Entitic vol] 48.1 fL 35.1-43.9 [facility] Erythrocyte distribution width (RBC) [Ratio] 15.2 % 11.6-14.6 [facility] Immature granulocytes/100 WBC (Bld) 0.600 % 0.0-0.9 [facility] Comment on above: IG% - Immature Granu locytes (promyelocytes, myelocytes and metamyelocytes) > 1% indicates that a LEFT SHIFT is Present. MCH (RBC) [Entitic mass] 27.7 pg 27.0-32.0 [facility] Nucleated RBC/100 WBC (Bld) [Ratio] 0 % 0-5 [facility] MCHC Auto (RBC) [Mass/Vol]Or dered By: Arthur Lara on 07-24-2023 MCHC (RBC) [Mass/Vol] 32.1 g/dL 32-36 [facility] No Panel InformationOrdered By: Arthur Lara on 07-24-2023 Estimated Creatinine Clearance Calc 66.51 ml/min [facility] Estimated GFR (MDRD) Amer 89 mL/min >60 [facility] Comment on above: GFR Calc Estimated GFR (MDRD) Non-Af Amer 73 mL/min >60 [facility] Comment on above: Non- GFR Calc Platelets bldOrdered By: Louann Lara on 07-24-2023 Platelets (Bld) [#/Vol] 209 10*3/uL 150-450 [facility] Serum or plasma C reactive p rotein measurement (mass/volume)Ordered By: Adrianna Mejia on 07-24-2023 CRP [Mass/Vol] 21.50 mg/L 0.0-3.0 [facility] Comment on above: C-Reactive Protein ( CRP) provides useful information for thediagnosis, therapy and monitoring of inflammatory processesand associated diseases. For the evaluation of Relative Riskfor Cardiovascular Disease, a High Sensitivity CRP (HSCRP)should be ordered. Serum or plasma albumin herson urement (mass/volume)Ordered By: Arthur Lara on 07-24-2023 Albumin [Mass/Vol] 3.2 g/dL 3.2-5.0 [facility] Serum or plasma albumin/glob ulin mass ratioOrdered By: Arthur Lara on 07-24-2023 Albumin/Globulin [Mass ratio] 0.8 {ratio} 0.9-2.4 [facility] Serum or plasma calcium herson urement (mass/volume)Ordered By: Arthur Lara on 07-24-2023 Calcium [Mass/Vol] 8.9 mg/dL 8.5-10.1 [facility] Serum or plasma creatinine m easurement (mass/volume)Ordered By: Arthur Lara on 07-24-2023 Creatinine [Mass/Vol] 0.86 mg/dL 0.55-1.02 [facility] Comment on above: The validity of the calculated GFR & GFRAA in patients over 70 years has not been determined. Clinical correlation is essential. Serum or plasma urea nitroge n measurement (mass/volume)Ordered By: Arthur Lara on 07-24-2023 Urea nitrogen [Mass/Vol] 20 mg/dL 7-18 [facility] Thin prep Papanicolaou smear with manual screeningOrdered By: Arthur Lara on 07-24-2023 Thin prep Papanicolaou smear with manual screening 12 U/L 15-37 [facility] [facility] Thin prep Papanicolaou smear with manual screening 3 5-15 [facility] Whole blood hemoglobin A1c/t otal hemoglobin ratio (mass fraction)Ordered By: Adrianna Mejia on 07-24-2023 HbA1c (Bld) [Mass fraction] 5.9 % 3.8-5.6 [facility] Comment on above: Normal < 5.7 % Predi abetic 5.7 - 6.4 % Diabetic >or= 6.5 % Please note range changes. Laboratory - Hematology and Cell countson 07-16-2023 Basophils (Bld) [#/Vol] 0.007 10*3/uL Normal 0 - 200 {cells/uL} [facility] [place] [address] [facility]. Basophils/100 WBC (Bld) 0.1 % Normal [facility].; [facility], [facility]. Eosinophils (Bld) [#/Vol] 0.007 10*3/uL Abnormal 15 - 500 {cells/uL} [facility], [facility].; [place] [address] [facility], [facility]. Eosinophils/100 WBC (Bld) 0.1 % Normal [facility].; [place] [address] [facility], [facility]. Erythrocyte distribution width (RBC) [Ratio] 14.3 % Normal 11.0 - 15.0 % [facility].; [place] [address] [facility], [facility]. Hematocrit (Bld) [Volume fraction] 40.3 % Normal 35.0 - 45.0 % [facility], [facility].; [place] [address] [facility], [facility]. Hemoglobin (Bld) [Mass/Vol] 13.2 g/dL Normal 11.7 - 15.5 g/dL [facility].; [place] [address] [facility], [facility]. Lymphocytes (Bld) [#/Vol] 1.414 10*3/uL Normal 850 - 3900 {cells/uL} [facility].; [place] [employer], [facility]. Lymphocytes/100 WBC (Bld) 21.1 % Normal [facility].; [place] [address] [facility], [facility]. MCH (RBC) [Entitic mass] 26.9 pg Abnormal 27.0 - 33.0 pg [facility], [facility].; [place] [employer], [facility]. MCHC (RBC) [Mass/Vol] 32.8 g/dL Normal 32.0 - 36.0 g/dL [facility].; [place] [employer], [facility]. MCV (RBC) [Entitic vol] 82.2 fL Normal 80.0 - 100.0 fL [place] [address] [facility].; [place] [address] [facility], [facility]. Monocytes (Bld) [#/Vol] 0.469 10*3/uL Normal 200 - 950 {cells/uL} [facility], [facility].; [place] [employer], [facility]. Monocytes/100 WBC (Bld) 7.0 % Normal [facility].; [place] [employer], [facility]. Neutrophils (Bld) [#/Vol] 4.804 10*3/uL Normal 1500 - 7800 {cells/uL} [employer] Neutrophils/100 WBC (Bld) 71.7 % Normal [email or web address]. Platelet mean volume (Bld) [Entitic vol] 9.7 fL Normal 7.5 - 12.5 fL [place] [email or web address]. Platelets (Bld) [#/Vol] 295 10*3/uL Normal 140 - 400 [place] [email or web address] RBC (Bld) [#/Vol] 4.90 10*6/uL Normal 3.80 - 5.1 0 {Million/uL} [employer] WBC (Bld) [#/Vol] 6.7 10*3/uL Normal 3.8 - 10.8 [employer] No Panel Informationon 07-16 COMMENT(S) SEE NOTE Normal [employer] Absolute lymphocyte countOrd ered By: Kolby Guan on 07-08-2023 Lymphocytes Auto (Unsp spec) [#/Vol] 0.36 10*3/uL 0.83-4.51 [facility] Basophil percentageOrdered B y: Kolby Guan on 07-08-2023 Basophils/100 WBC (Bld) 0.1 % 0-1 [facility] Bilirubin [Mass/Vol] 0.70 mg/dL 0.20-1.00 [facility] Comment on above: For patients on eltr ombopag therapy, use of Dimension [place] TBIL is not recommended. Chloride [Moles/Vol] 100 mmol/L 98-107 [facility] Eosinophils/100 WBC (Bld) 0.0 % 0-5 [facility] Glucose [Mass/Vol] 111 mg/dL 74-106 [facility] Comment on above: Fasting Glucose resu lt from 100 to 125 mg/dL suggests IMPAIRED HOMEOSTASIS per A.D.A. criteria. Lactate [Moles/Vol] 1.6 mmol/L 0.4-2.0 [facility] Neutrophils (Bld) [#/Vol] 13.7 10*3/uL 2.0-7.7 [facility] Neutrophils/100 WBC (Bld) 92.5 % 47-70 [facility] Potassium [Moles/Vol] 4.4 mmol/L 3.5-5.1 [facility] Protein [Mass/Vol] 7.3 g/dL 6.4-8.2 [facility] Sodium [Moles/Vol] 134 mmol/L 136-145 [facility] WBC (Bld) [#/Vol] 14.9 10*3/uL 4.4-11.0 [facility] Blood erythrocytes count (nu mber/volume)Ordered By: Kolby Guan on 07-08-2023 RBC (Bld) [#/Vol] 4.58 10*6/uL 4.2-5.4 [facility] Blood hemoglobin measurement (mass/volume)Ordered By: Kolby Guan on 07-08-2023 Hemoglobin (Bld) [Mass/Vol] 12.6 g/dL 12.0-15.0 [facility] Blood lymphocytes/100 leukoc ytesOrdered By: Kolby Guan on 07-08-2023 Lymphocytes/100 WBC (Bld) 2.4 % 19-41 [facility] Blood manual differential co mment interpretation (narrative result)Ordered By: Kolby Guan on 07-08-2023 Manual differential comment Terry (Bld) [Interp] SCANNED [facility] Blood monocytes/100 leukocyt esOrdered By: Kolby Guan on 07-08-2023 Monocytes/100 WBC (Bld) 4.4 % 0-10 [facility] Blood platelet mean volumeOr dered By: Kolby Guan on 07-08-2023 Platelet mean volume (Bld) [Entitic vol] 9.9 fL 6.2-12.0 [facility] Determination of erythrocyte mean corpuscular volume (MCV)Ordered By: Kolby Guan on 07-08-2023 MCV (RBC) [Entitic vol] 87.3 fL 81-99 [facility] Hematocrit Auto (Bld) [Volum e fraction]Ordered By: Kolby Guan on 07-08-2023 Hematocrit (Bld) [Volume fraction] 40.0 % 37-47 [facility] INR in Blood by Coagulation assayOrdered By: Kolby Guan on 07-08-2023 INR Coag (Bld) [Relative time] 1.1 {INR} [facility] Laboratory - Chemistry and C hemistry - challengeOrdered By: Kolby Guan on 07-08-2023 ALP [Catalytic activity/Vol] 79 U/L 45-117 [facility] ALT [Catalytic activity/Vol] 22 U/L 13-56 [facility] CO2 [Moles/Vol] 28.0 mmol/L 21.0-32.0 [facility] Globulin (S) [Mass/Vol] 4.0 g/dL 2.2-4.2 [facility] Urea nitrogen/Creatinine [Mass ratio] 18.7 mg/mg 10-20 [facility] Laboratory - CoagulationOrde red By: Kolby Guan on 07-08-2023 aPTT Coag (Bld) [Time] 35.2 s 24.1-36.2 [facility] PT Coag (PPP) [Time] 13.8 s 11.7-14.9 [facility] Laboratory - Hematology and Cell countsOrdered By: Kolby Guan on 07-08-2023 Erythrocyte distribution width (RBC) [Entitic vol] 49.1 fL 35.1-43.9 [facility] Erythrocyte distribution width (RBC) [Ratio] 15.4 % 11.6-14.6 [facility] Immature granulocytes/100 WBC (Bld) 0.600 % 0.0-0.9 [facility] Comment on above: IG% - Immature Granu locytes (promyelocytes, myelocytes and metamyelocytes) > 1% indicates that a LEFT SHIFT is Present. MCH (RBC) [Entitic mass] 27.5 pg 27.0-32.0 [facility] Nucleated RBC/100 WBC (Bld) [Ratio] 0 % 0-5 [facility] Laboratory - Microbiology an d Antimicrobial susceptibilityOrdered By: Kolby Guan on 07-08-2023 Bacteria identified Cx Nom (Bld) No growth in 5 days. [facility] MCHC Auto (RBC) [Mass/Vol]Or dered By: Kolby Guan on 07-08-2023 MCHC (RBC) [Mass/Vol] 31.5 g/dL 32-36 [facility] No Panel InformationOrdered By: Kolby Guan on 07-08-2023 Estimated Creatinine Clearance Calc 57.18 ml/min [facility] Estimated GFR (MDRD) Amer 77 mL/min >60 [facility] Comment on above: GFR Calc Estimated GFR (MDRD) Non-Af Amer 64 mL/min >60 [facility] Comment on above: Non- GFR Calc Platelets bldOrdered By: Dean Guan on 07-08-2023 Platelets (Bld) [#/Vol] 169 10*3/uL 150-450 [facility] Serum or plasma albumin herson urement (mass/volume)Ordered By: Kolby Guan on 07-08-2023 Albumin [Mass/Vol] 3.3 g/dL 3.2-5.0 [facility] Serum or plasma albumin/glob ulin mass ratioOrdered By: Kolby Guan on 07-08-2023 Albumin/Globulin [Mass ratio] 0.8 {ratio} 0.9-2.4 [facility] Serum or plasma calcium herson urement (mass/volume)Ordered By: Kolby Guan on 07-08-2023 Calcium [Mass/Vol] 9.0 mg/dL 8.5-10.1 [facility] Serum or plasma creatinine m easurement (mass/volume)Ordered By: Kolby Guan on 07-08-2023 Creatinine [Mass/Vol] 0.96 mg/dL 0.55-1.02 [facility] Comment on above: The validity of the calculated GFR & GFRAA in patients over 70 years has not been determined. Clinical correlation is essential. Serum or plasma urea nitroge n measurement (mass/volume)Ordered By: Kolby Guan on 07-08-2023 Urea nitrogen [Mass/Vol] 18 mg/dL 7-18 [facility] Thin prep Papanicolaou smear with manual screeningOrdered By: Kolby Guan on 07-08-2023 Thin prep Papanicolaou smear with manual screening 16 U/L 15-37 [facility] Thin prep Papanicolaou smear with manual screening 6 5-15 [facility] NICOTINE+METABOLITES,Son COTININE <5 Normal [facility] Comment on above: Performed By: #### F OLA2 #### [facility] [address] [place] [address] NICOTINE <5 Normal [facility] Comment on above: Result Comment: Cons istent [...] developed and its performance characteristics determined by [employer]. It has not been cleared or approved by the [place] Food and Drug Administration. This test was performed in a CLIA certified laboratory and is intended for clinical purposes. Performed By: [employer] [address] [id number] Property Disposal Manager: Damien Hernandez MD, PhD Performed By: #### F OLA2 #### [facility] [address] [place] [address] VIT B1-THIAMINE WHOLE BLDon 02-07-2023 VIT B1-THIAMINE WHOLE BLD 167 nmol/L Normal 70-180 [facility] Comment on above: Result Comment: INTE RPRETIVE INFORMATION: Vitamin B1, Whole Blood This assay measures the concentration of thiamine diphosphate (TDP), the primary active form of vitamin B1. Approximately 90 percent of vitamin B1 present in whole blood is TDP. Thiamine and thiamine monophosphate, which comprise the remaining 10 percent, are not measured. This test was developed and its performance characteristics determined by [employer]. It has not been cleared or approved by the [place] Food and Drug Administration. This test was performed in a CLIA certified laboratory and is intended for clinical purposes. Performed By: [employer] [address] [place] [id number] Property Disposal Manager: Damien Hernandez MD, PhD Performed By: #### V TB1W #### [address] [address] COPPERon 02-05-2023 COPPER 152.7 ug/dL Normal 80.0-155.0 [facility] Comment on above: Result Comment: INTE RPRETIVE [...] developed and its performance characteristics determined by [employer]. It has not been cleared or approved by the [place] Food and Drug Administration. This test was performed in a CLIA certified laboratory and is intended for clinical purposes. Performed By: [employer] [address] [place] [address] Property Disposal Manager: Damien Hernandez MD, PhD Performed By: #### F OLA2 #### [facility] [address] [place] [id number] ZINCon 02-05-2023 ZINC 89.2 ug/dL Normal 60.0-120.0 [facility] Comment on above: Result Comment: INTE RPRETIVE [...] developed and its performance characteristics determined by [employer]. It has not been cleared or approved by the US Food and Drug Administration. This test was performed in a CLIA certified laboratory and is intended for clinical purposes. Performed By: [facility] [address] [place] [address] Property Disposal Manager: Damien Hernandez MD, PhD Performed By: #### Z INC #### [facility] [address] [place] [address] H. PYLORI BREATH TESTon H. PYLORI BREATH TEST Negative Normal NEGATIVE [facility] Comment on above: Result Comment: ANTI MICROBIALS, [...] RESULTS. Performed By: #### B REAT #### [facility] [address] [place], [place] [id number] PARATHYROID HORMONE,INTACTon 02-03-2023 PARATHYROID HORMONE,INTACT 47.2 pg/mL Normal 18.5 - 88.0 [facility] Comment on above: Performed By: #### P TH #### [facility] [address] [facility] [place] [address] Bariatric Surgery - Initialo n 02-02-2023 Bariatric [...] PROTEINon 023 C-REACTIVE PROTEIN 2.27 mg/dL Abnormal [facility] Comment on above: Result Comment: REF VALUE < 1.00 Performed By: #### F OLA2 #### [facility] [address] [place] [address] CBC AND DIFFERENTIALon 02-02 % AUTOMATED IMMATURE GRAN 0.5 % Normal 0.0 - 0.9 [facility] Comment on above: Result Comment: Merna ture Granulocyte Count (IG) includes promyelocytes, myelocytes and metamyelocytes but does not include bands. Percent differential counts (%) should be interpreted in the context of the absolute cell counts (cells/L). Performed By: #### C BCDF #### [facility] [address] [place] [address] Erythrocyte distribution width (RBC) [Ratio] 15.4 % High 11.5 - 14.5 [facility] Comment on above: Performed By: #### C BCDF #### [facility] [id number] [place] [address] Hematocrit (Bld) [Volume fraction] 42.9 % Normal 36.0 - 46.0 [facility] Comment on above: Performed By: #### C BCDF #### [facility] [id number] [place] [address] Hemoglobin (Bld) [Mass/Vol] 13.4 g/dL Normal 12.0 - 16.0 [facility] Comment on above: Performed By: #### C BCDF #### [address] [address] Lymphocytes (Bld) [#/Vol] 1.01 10*3/uL Low 1.20 - 4.80 [facility] Comment on above: Performed By: #### C BCDF #### [facility] [id number] [place] [address] Lymphocytes/100 WBC (Bld) 17.8 % Normal 13.0 - 44.0 [facility] Comment on above: Performed By: #### C BCDF #### [facility] [id number] [place] [address] MCHC (RBC) [Mass/Vol] 31.2 g/dL Low 32.0 - 36.0 [facility] Comment on above: Performed By: #### C BCDF #### [facility] [id number] [place] [address] MCV (RBC) [Entitic vol] 86 fL Normal 80 - 100 [facility] Comment on above: Performed By: #### C BCDF #### [facility] [id number] [place] [address] Monocytes (Bld) [#/Vol] 0.45 10*3/uL Normal 0.10 - 1.00 [facility] Comment on above: Performed By: #### C BCDF #### [facility] [address] [facility] [place] [address] Monocytes/100 WBC (Bld) 7.9 % Normal 2.0 - 10.0 [facility] Comment on above: Performed By: #### C BCDF #### [facility] [address] [facility] [place] [address] Neutrophils (Bld) [#/Vol] 4.20 10*3/uL Normal 1.20 - 7.70 [facility] Comment on above: Performed By: #### C BCDF #### [facility] [id number] [place] [address] [place] [address] Neutrophils/100 WBC (Bld) 73.8 % Normal 40.0 - 80.0 [facility] Comment on above: Performed By: #### C BCDF #### [facility] [id number] [place] [address] [address] [facility] [address] Platelets (Bld) [#/Vol] 217 10*3/uL Normal 150 - 450 [facility] Comment on above: Performed By: #### C BCDF #### [facility] [id number] [place] [address] [place] [address] RBC 4.97 x10E12/L Normal 4.00 - 5.20 [facility] Comment on above: Performed By: #### C BCDF #### [facility] [address] [employer] [address]AN[address] [facility] [address] WBC (Bld) [#/Vol] 5.7 10*3/uL Normal 4.4 - 11.3 [facility] Comment on above: Performed By: #### C BCDF #### [facility] [address] [facility] [place] [address] COAGULATION SCREENon 023 aPTT Coag (Bld) [Time] 32 s Normal 26 - 39 [facility] Comment on above: Result Comment: THE APTT IS NO LONGER USED FOR MONITORING UNFRACTIONATED HEPARIN THERAPY. FOR MONITORING HEPARIN THERAPY, USE THE HEPARIN ASSAY. Performed By: #### F OLA2 #### [facility] [address] [place] [address] PT Coag (PPP) [Time] 11.8 s Normal 9.8 - 13.4 [facility] Comment on above: Performed By: #### F OLA2 #### [facility] [address] [place] [address] PT, INR 1.0 Normal 0.9 - 1.1 [facility] Comment on above: Performed By: #### F OLA2 #### [facility] [address] [place] [address] COMPREHENSIVE PANELon 2022 Albumin [Mass/Vol] 4.2 g/dL Normal 3.4 - 5.0 [facility] Comment on above: Performed By: #### F OLA2 #### [facility] [address] [place] [address] ALP [Catalytic activity/Vol] 61 U/L Normal 33 - 110 [facility] Comment on above: Performed By: #### F OLA2 #### [facility] [address] [place] [address] ALT [Catalytic activity/Vol] 20 U/L Normal 7 - 45 [facility] Comment on above: Result Comment: Dalila ents treated with Sulfasalazine may generate falsely decreased results for ALT. Performed By: #### F OLA2 #### [facility] [address] [place] [address] Anion gap [Moles/Vol] 13 mmol/L Normal 10 - 20 [facility] Comment on above: Performed By: #### F OLA2 #### [facility] [address] [place] [address] AST [Catalytic activity/Vol] 20 U/L Normal 9 - 39 [facility] Comment on above: Performed By: #### F OLA2 #### [facility] [address] [place] [address] Bilirubin [Mass/Vol] 0.5 mg/dL Normal 0.0 - 1.2 [facility] Comment on above: Performed By: #### F OLA2 #### [facility] [address] [place] [address] Calcium [Mass/Vol] 9.6 mg/dL Normal 8.6 - 10.3 [facility] Comment on above: Performed By: #### F OLA2 #### [facility] [address] [place] [address] Chloride [Moles/Vol] 102 mmol/L Normal 98 - 107 [facility] Comment on above: Performed By: #### F OLA2 #### [facility] [address] [place] [address] Creatinine [Mass/Vol] 0.87 mg/dL Normal 0.50 - 1.05 [facility] Comment on above: Performed By: #### F OLA2 #### [facility] [address] [place] [address] GFR/1.73 sq M.predicted among non-blacks MDRD (S/P/Bld) [Vol rate/Area] 79 mL/min/{1.73_m2} Normal >90 [facility] Comment on above: Result Comment: CALC ULATIONS OF ESTIMATED GFR ARE PERFORMED USING THE 2020 CKD-EPI STUDY REFIT EQUATION WITHOUT THE RACE VARIABLE FOR THE IDMS-TRACEABLE CREATININE METHODS. https://jasn.asnjournals.org/content//ASN.49492 [address] Performed By: #### F OLA2 #### [facility] [address] [place] [address] Glucose [Mass/Vol] 81 mg/dL Normal 74 - 99 [facility] Comment on above: Performed By: #### F OLA2 #### [facility] [address] [place] [address] HCO3 (Bld) [Moles/Vol] 25 mmol/L Normal 21 - 32 [facility] Comment on above: Performed By: #### F OLA2 #### [facility] [address] [place] [address] Potassium [Moles/Vol] 4.2 mmol/L Normal 3.5 - 5.3 [facility] Comment on above: Performed By: #### F OLA2 #### [facility] [address] [place] [address] Protein [Mass/Vol] 7.4 g/dL Normal 6.4 - 8.2 [facility] Comment on above: Performed By: #### F OLA2 #### [facility] [address] [place] [address] Sodium [Moles/Vol] 136 mmol/L Normal 136 - 145 [facility] Comment on above: Performed By: #### F OLA2 #### [facility] [address] [place] [address] Urea nitrogen [Mass/Vol] 21 mg/dL Normal 6 - 23 [facility] Comment on above: Performed By: #### F OLA2 #### [facility] [address] [place] [address] DRUG SCREEN,URINE WITH REFLE X TO CONFIRMATIONon 02-02-2023 AMPHETAMINE SCREEN,U Negative Normal NEGATIVE [facility] Comment on above: Result Comment: CUTO FF LEVEL: 500 NG/ML Cross-reactivity has been reported with high concentrations of the following drugs: buproprion, chloroquine, chlorpromazine, ephedrine, mephentermine, fenfluramine, phentermine, phenylpropanolamine, pseudoephedrine, and propranolol. Performed By: #### F OLA2 #### [facility] [address] [place] [address] BARBITURATES SCREEN,U Negative Normal NEGATIVE [facility] Comment on above: Result Comment: CUTO FF LEVEL: 200 NG/ML Performed By: #### F OLA2 #### [facility] [address] [place] [address] BENZODIAZEPINES SCREEN,U Negative Normal NEGATIVE [facility] Comment on above: Result Comment: CUTO FF LEVEL: 200 NG/ML Performed By: #### F OLA2 #### [facility] [address] [place] [address] CANNABINOIDS SCREEN,U Negative Normal NEGATIVE [facility] Comment on above: Result Comment: CUTO FF LEVEL: 50 NG/ML Performed By: #### F OLA2 #### [facility] [address] [place] [address] COCAINE METABOLITE SCREEN,U Negative Normal NEGATIVE [facility] Comment on above: Result Comment: CUTO FF LEVEL: 150 NG/ML Performed By: #### F OLA2 #### [facility] [address] [place] [address] DRUG SCREEN COMMENT SEE BELOW Normal [facility] Comment on above: Result Comment: Drug [...] directors. Performed By: #### F OLA2 #### [facility] [address] [place] [address] FENTANYL SCREEN,URINE Negative Normal NEGATIVE [facility] Comment on above: Result Comment: CUTO FF LEVEL: 5 NG/ML Performed By: #### F OLA2 #### [facility] [facility] [address] [place] [address] METHADONE SCREEN,U Negative Normal NEGATIVE [facility] Comment on above: Result Comment: CUTO FF LEVEL: 150 NG/ML The metabolite P-nbepf-vwikybxdkdvglj (LAAM) is not detected by this method in concentrations that would be found in the urine of patients on LAAM therapy. Performed By: #### F OLA2 #### [facility] [address] [place] [address] OPIATES SCREEN,U Negative Normal NEGATIVE [facility] Comment on above: Result Comment: CUTO FF LEVEL: 300 NG/ML The opiate screen does not detect fentanyl, meperidine, or tramadol. Oxycodone is not consistently detected (refer to Oxycodone Screen, Urine result). Performed By: #### F OLA2 #### [facility] [address] [place] [address] OXYCODONE SCREEN,U Negative Normal NEGATIVE [facility] Comment on above: Result Comment: CUTO FF LEVEL: 100 NG/ML This test will accurately detect both oxycodone and oxymorphone. Performed By: #### F OLA2 #### [facility] [address] [place] [address] PCP SCREEN,U Negative Normal NEGATIVE [facility] Comment on above: Result Comment: CUTO FF LEVEL: 25 NG/ML Cross-reactivity has been reported with dextromethorphan. Performed By: #### F OLA2 #### [facility] [address] [place] [id number] FERRITINon 02-02-2023 FERRITIN 84 ug/L Normal 8 - 150 [facility] Comment on above: Performed By: #### F OLA2 #### [facility] [address] [place] [id number] FOLATE, SERUMon 02-02-2023 Folate [Mass/Vol] 9.3 ng/mL Normal >5.0 [facility] Comment on above: Result Comment: Low <3.4 Borderline 3.4-5.0 Normal >5.0 . Biotin interference may cause falsely elevated results. Patients taking a Biotin dose of up to 5 mg/day should refrain from taking Biotin for 24 hours before sample collection. Providers may contact their local laboratory for further information. Performed By: #### F OLA2 #### [facility] [address] [place] [id number] HEMOGLOBIN A1Con 02-02-2023 Glucose [Mass/Vol] 120 mg/dL Normal [facility] Comment on above: Performed By: #### H BA1E #### [facility] [address] [place] [id number] HbA1c (Bld) [Mass fraction] 5.8 % Abnormal [facility] Comment on above: Result Comment: Diag nosis of Diabetes-Adults Non-Diabetic: < or = 5.6% Increased risk for developing diabetes: 5.7-6.4% Diagnostic of diabetes: > or = 6.5% . Monitoring of Diabetes Age (y) Therapeutic Goal (%) Adults: >18 <7.0 Pediatrics: 13-18 <7.5 7-12 <8.0 0- 6 7.5-8.5 [employer]. Diabetes Care 33(S1), Nov 2009. Performed By: #### H BA1E #### [facility] [address] [place] [address] IRON + TIBCon 02-02-2023 % SATURATION 16 % Low 25 - 45 [facility] Comment on above: Performed By: #### F OLA2 #### [facility] [address] [place] [address] Iron [Mass/Vol] 64 ug/dL Normal 35 - 150 [facility] [place] Comment on above: Performed By: #### F OLA2 #### [facility] [address] [place] [address] TIBC 400 ug/dL Normal 240 - 445 [facility] Comment on above: Performed By: #### F OLA2 #### [facility] [address] [place] [address] LIPID PANEL (CORONARY RISK 2 )on 02-02-2023 Cholesterol [Mass/Vol] 144 mg/dL Normal 0 - 199 [facility] Comment on above: Result Comment: . AGE [...] Performed By: #### F OLA2 #### [facility] [address] [place] [address] Cholesterol in HDL [Mass/Vol] 48.8 mg/dL Normal [facility] Comment on above: Result Comment: . AGE VERY LOW LOW NORMAL HIGH 0-19 Y < 35 < 40 40-45 ---- 20-24 Y ---- < 40 >45 ---- >24 Y ---- < 40 40-60 >60 . Performed By: #### F OLA2 #### [facility] [address] [place] [address] Cholesterol in LDL [Mass/Vol] 74 mg/dL Normal 0 - 99 [facility] Comment on above: Result Comment: . NEAR BORD AGE DESIRABLE OPTIMAL HIGH HIGH VERY HIGH 0-19 Y 0 - 109 --- 110-129 >/= 130 ---- 20-24 Y 0 - 119 --- 120-159 >/= 160 ---- >24 Y 0 - 99 100-129 130-159 160-189 >/=190 . Performed By: #### F OLA2 #### [facility] [address] [place] [address] Cholesterol in VLDL [Mass/Vol] 21 mg/dL Normal 0 - 40 [facility] Comment on above: Performed By: #### F OLA2 #### [facility] [address] [place] [address] Cholesterol.total/Chol esterol in HDL [Mass ratio] 3.0 {ratio} Normal [facility] Comment on above: Result Comment: REF VALUES DESIRABLE < 3.4 HIGH RISK > 5.0 Performed By: #### F OLA2 #### [facility] [address] [place] [address] Triglyceride [Mass/Vol] 107 mg/dL Normal 0 - 149 [facility] Comment on above: Result Comment: . AGE [...] dosing. Performed By: #### F OLA2 #### [facility] [address] [place] [address] THYROXINE,FREEon 02-02-2023 THYROXINE,FREE 0.88 ng/dL Normal 0.61 - 1.12 [facility] [place] Comment on above: Result Comment: Thyr oxine Free testing is performed using different testing methodology at [facility] than at [facility]. Direct result comparisons should only be made [...] draw. Performed By: #### T 4FRE #### [facility] [address] [place] [address] TSHon 02-02-2023 TSH Qn 3.64 m[IU]/L Normal 0.44 - 3.98 [facility], [place], [facility] Comment on above: Result Comment: TSH testing is performed using different testing methodology at [facility] than at [facility]. Direct result comparisons should only be made within the same method. Performed By: #### T SH2 #### [facility] [address] [place] [address] VITAMIN B12on 02-02-2023 Cobalamin (Vitamin B12) [Mass/Vol] 258 pg/mL Normal 211 - 911 [facility] Comment on above: Performed By: #### V TB12 #### [facility] [address] [place] [address] VITAMIN D, 25-HYDROXYon VITAMIN D, 25-HYDROXY 27 ng/mL Abnormal [facility] Comment on above: Result Comment: . DEFICIENCY: < 20 NG/ML INSUFFICIENCY: 20-29 NG/ML SUFFICIENCY: 30-100 NG/ML THIS ASSAY ACCURATELY QUANTIFIES THE SUM OF VITAMIN D3, 25-HYDROXY AND VIT D2,25-HYDROXY. Performed By: #### F OLA2 #### [facility] [address] [place] [address] Laboratory - Chemistry and C hemistry - challengeon 09-10-2022 Albumin [Mass/Vol] 4.3 g/dL Normal 3.6 - 5.1 g/dL [facility].; [facility]. Albumin/Globulin [Mass ratio] 1.3 {ratio} Normal 1.0 - 2.5 [facility].; [facility]. ALP [Catalytic activity/Vol] 71 U/L Normal 37 - 153 U/L [facility].; [facility] ALT [Catalytic activity/Vol] 18 U/L Normal 6 - 29 U/L [facility].; [facility]. AST [Catalytic activity/Vol] 17 U/L Normal 10 - 35 U/L [facility].; [facility]. Bilirubin [Mass/Vol] 0.4 mg/dL Normal 0.2 - 1 .2 mg/dL [facility].; [facility]. Bilirubin Ql (U) Negative Normal [facility]; [facility] Calcium [Mass/Vol] 9.4 mg/dL Normal 8.6 - 10. 4 mg/dL [facility].; [facility]. Chloride [Moles/Vol] 101 mmol/L Normal 98 - 11 0 mmol/L [facility]; [facility]. CO2 [Moles/Vol] 28 mmol/L Normal 20 - 32 mmol/L [facility].; [facility]. Cobalamin (Vitamin B12) [Mass/Vol] 296 pg/mL Normal 200 - 1100 pg/mL [facility].; [place] [address] [facility]. Creatinine [Mass/Vol] 0.85 mg/dL Normal 0.50 - 1.03 mg/dL [facility].; [place] [address] [facility]. GFR/1.73 sq M.predicted among non-blacks MDRD (S/P/Bld) [Vol rate/Area] 81 mL/min/{1.73_m2} Normal [facility].; [facility], [facility]. Glucose [Mass/Vol] 98 mg/dL Normal 65 - 99 mg/dL [facility].; [place] [address] [facility] Ketones Ql (U) Negative Normal [facility].; [facility]. Magnesium [Mass/Vol] 2.2 mg/dL Normal 1.5 - 2 .5 mg/dL [facility].; [place] [address] [facility]. pH (U) 5.5 [pH] Normal [facility].; [place] [address] [facility]. Potassium [Moles/Vol] 4.7 mmol/L Normal 3.5 - 5.3 mmol/L [facility].; [place] [address] [facility]. Protein [Mass/Vol] 7.6 g/dL Normal 6.1 - 8.1 g/dL [facility].; [place] [address] [facility]. Sodium [Moles/Vol] 136 mmol/L Normal 135 - 146 mmol/L [facility].; [place] [address] [facility]. Specific gravity (U) [Rel density] 1.020 Normal [facility]; [place] [employer] [facility] Urea nitrogen [Mass/Vol] 18 mg/dL Normal 7 - 25 mg/dL [facility].; [place] [employer] [facility]. Urobilinogen Qn (U) 0.2 mg/dL Normal [facility].; [place] [address] [facility]. Laboratory - Hematology and Cell countson 09-10-2022 Basophils (Bld) [#/Vol] 0.007 10*3/uL Normal 0 - 200 {cells/uL} [facility].; [place] [employer] [facility]. Basophils/100 WBC (Bld) 0.1 % Normal [facility].; [place] [address] [facility]. Eosinophils (Bld) [#/Vol] 0 10*3/uL Abnormal 15 - 500 {cells/uL} [facility].; [place] [employer] [facility]. Eosinophils/100 WBC (Bld) 0.0 % Normal [facility]; [place] [address] [facility] Erythrocyte distribution width (RBC) [Ratio] 14.4 % Normal 11.0 - 15.0 % [place] [address] [facility].; [employer]. HbA1c (Bld) [Mass fraction] 5.6 % Normal [facility].; [place] [address] [facility]. Hematocrit (Bld) [Volume fraction] 41.8 % Normal 35.0 - 45.0 % [facility], [facility].; [facility], [facility]. Hemoglobin (Bld) [Mass/Vol] 13.4 g/dL Normal 11.7 - 15.5 g/dL [facility], [facility].; [facility], [facility]. Hemoglobin Ql (U) Trace, hemolyzed Abnormal [facility].; [facility], [facility] Lymphocytes (Bld) [#/Vol] 1.213 10*3/uL Normal 850 - 3900 {cells/uL} [facility], [facility].; [facility], [facility]. Lymphocytes/100 WBC (Bld) 18.1 % Normal [facility].; [facility], [facility]. MCH (RBC) [Entitic mass] 27.2 pg Normal 27.0 - 33.0 pg [facility], [facility].; [place] [employer], [facility]. MCHC (RBC) [Mass/Vol] 32.1 g/dL Normal 32.0 - 36.0 g/dL [facility].; [place] [employer], [facility]. MCV (RBC) [Entitic vol] 84.8 fL Normal 80.0 - 100.0 fL [facility], [facility].; [place] [address] [facility], [facility]. Monocytes (Bld) [#/Vol] 0.469 10*3/uL Normal 200 - 950 {cells/uL} [facility], [facility].; [place] [employer], [facility]. Monocytes/100 WBC (Bld) 7.0 % Normal [facility].; [facility], [facility]. Neutrophils (Bld) [#/Vol] 5.012 10*3/uL Normal 1500 - 7800 {cells/uL} [facility], [facility].; [place] [employer], [facility]. Neutrophils/100 WBC (Bld) 74.8 % Normal [facility].; [place] [employer], [facility]. Platelet mean volume (Bld) [Entitic vol] 9.7 fL Normal 7.5 - 12.5 fL [facility], [facility].; [place] [employer] Platelets (Bld) [#/Vol] 239 10*3/uL Normal 140 - 400 [facility].; [facility], [facility]. RBC (Bld) [#/Vol] 4.93 10*6/uL Normal 3.80 - 5.1 0 {Million/uL} [facility]; [place] [address] [facility] WBC (Bld) [#/Vol] 6.7 10*3/uL Normal 3.8 - 10.8 [facility], [facility].; [employer] Laboratory - Specimen inform ationon 09-10-2022 Appearance (U) clear Normal [facility]; [place] [employer] [facility] Color (U) Dark Yellow Normal [facility]; [employer], [facility] Laboratory - Urinalysison Glucose Test strip (U) [Mass/Vol] Negative Normal [facility]; [place] [address] [facility], [facility] Leukocyte esterase Test strip Ql (U) Negative Normal [facility]; [employer], [facility] Protein Ql (U) Negative Normal [facility]; [employer] [facility] Laboratory - UrinalysisOrder ed By: Ashley Torres on 09-10-2022 Nitrite Ql (U) Positive Abnormal [facility]; [employer] [facility] No Panel Informationon 09-10 BUN/CREATININE RATIO NOT APPLICABLE Normal 6 - [facility]; [employer] [facility] CULTURE, URINE, ROUTINE SEE NOTE Abnormal [facility]; [employer] [facility] GLOBULIN 3.3 Normal 1.9 - 3.7 [facility]; [employer], [facility] TSH W/REFLEX TO FT4 3.38 {mIU/L} Normal [facility]; [employer] [facility] Laboratory - Chemistry and C hemistry - challengeon 02-28-2022 Calcium [Mass/Vol] 9.0 mg/dL Normal 8.6 - 10. 4 mg/dL [facility]; [employer], [facility]. Chloride [Moles/Vol] 104 mmol/L Normal 98 - 11 0 mmol/L [facility], [facility]; [place] [employer], [facility] CO2 [Moles/Vol] 25 mmol/L Normal 20 - 32 mmol/L [facility]; [place] [address] [facility]. Creatinine [Mass/Vol] 0.85 mg/dL Normal 0.50 - 1.05 mg/dL [facility].; [place] [address] [facility] GFR/1.73 sq M.predicted among blacks MDRD (S/P/Bld) [Vol rate/Area] 90 mL/min/{1.73_m2} Normal [facility]; [place] [address] [facility] Glucose [Mass/Vol] 94 mg/dL Normal 65 - 99 mg/dL [facility].; [place] [address] [facility] Potassium [Moles/Vol] 4.3 mmol/L Normal 3.5 - 5.3 mmol/L [facility].; [place] [address] [facility], [facility] Sodium [Moles/Vol] 139 mmol/L Normal 135 - 146 mmol/L [facility]; [place] [email or web address] Urea nitrogen [Mass/Vol] 17 mg/dL Normal 7 - 25 mg/dL [facility]; [place] [employer] [facility] No Panel Informationon 02-28 BUN/CREATININE RATIO NOT APPLICABLE Normal 6 - 22 [facility].; [place] [employer] [facility] eGFR NON-AFR. [place] 78 Normal [facility]; [place] [address] [facility] US SOFT TISSUEon 02-27-2022 US SOFT TISSUE [...] examination to exclude a lipomatous malignancy. Normal [facility] [place] Unspecified body regionon 02-27-2022 IMPRESSION: 1. [...] MRI examination to exclude a lipomatous malignancy. [facility] [place] Unspecified body regionOr dered By: Won Hagan on 02-27-2022 [facility] Work Phone: [place] Unspecified body regionon 02-26-2022 Radiology Study observation (narrative) [facility] Laboratory - Chemistry and C hemistry - challengeon 02-21-2022 Calcium [Mass/Vol] 9.5 mg/dL Normal 8.6 - 10. 4 mg/dL [facility] [employer] Chloride [Moles/Vol] 102 mmol/L Normal 98 - 11 0 mmol/L [facility].; [employer] CO2 [Moles/Vol] 28 mmol/L Normal 20 - 32 mmol/L [employer] [employer] [employer] [employer] Creatinine [Mass/Vol] 0.93 mg/dL Normal 0.50 - 1.05 mg/dL [facility].; [facility]. GFR/1.73 sq M.predicted among blacks MDRD (S/P/Bld) [Vol rate/Area] 81 mL/min/{1.73_m2} Normal [facility].; [facility], [facility] Glucose [Mass/Vol] 94 mg/dL Normal 65 - 99 mg/dL [facility].; [facility] Natriuretic peptide B (Bld) [Mass/Vol] 84 pg/mL Normal [facility]; [facility], [facility] Potassium [Moles/Vol] 4.4 mmol/L Normal 3.5 - 5.3 mmol/L [facility]; [facility], [facility] Sodium [Moles/Vol] 140 mmol/L Normal 135 - 146 mmol/L [facility]; [facility], [facility] Urea nitrogen [Mass/Vol] 14 mg/dL Normal 7 - 25 mg/dL [facility].; [facility] Laboratory - Hematology and Cell countson 02-21-2022 Basophils (Bld) [#/Vol] 0.011 10*3/uL Normal 0 - 200 {cells/uL} [facility].; [facility] Basophils/100 WBC (Bld) 0.2 % Normal [facility]; [facility], [facility] Eosinophils (Bld) [#/Vol] 0 10*3/uL Abnormal 15 - 500 {cells/uL} [facility].; [facility] Eosinophils/100 WBC (Bld) 0.0 % Normal [facility]; [facility] Erythrocyte distribution width (RBC) [Ratio] 15.0 % Normal 11.0 - 15.0 % [facility].; [facility], [facility]. Hematocrit (Bld) [Volume fraction] 40.8 % Normal 35.0 - 45.0 % [facility], [facility].; [facility], [facility] Hemoglobin (Bld) [Mass/Vol] 12.9 g/dL Normal 11.7 - 15.5 g/dL [facility]!.; [facility]. Lymphocytes (Bld) [#/Vol] 1.025 10*3/uL Normal 850 - 3900 {cells/uL} [facility].; [place] [address] [facility]. Lymphocytes/100 WBC (Bld) 18.3 % Normal [facility].; [place] [employer], [facility]. MCH (RBC) [Entitic mass] 25.5 pg Abnormal 27.0 - 33.0 pg [facility].; [place] [employer], [facility]. MCHC (RBC) [Mass/Vol] 31.6 g/dL Abnormal 32.0 - 36.0 g/dL [facility].; [place] [employer], [facility]. MCV (RBC) [Entitic vol] 80.8 fL Normal 80.0 - 100.0 fL [facility].; [place] [employer], [facility]. Monocytes (Bld) [#/Vol] 0.42 10*3/uL Normal 200 - 950 {cells/uL} [facility] [employer] [facility].; [place] [employer], [facility]. Monocytes/100 WBC (Bld) 7.5 % Normal [facility].; [place] [employer] [facility]. Neutrophils (Bld) [#/Vol] 4.144 10*3/uL Normal 1500 - 7800 {cells/uL} [place] [address] [facility].; [place] [employer], [facility]. Neutrophils/100 WBC (Bld) 74 % Normal [place] [address] [facility].; [employer], [employer]. Platelet mean volume (Bld) [Entitic vol] 10.0 fL Normal 7.5 - 12.5 fL [place] [employer] [facility].; [place] [employer], [facility]. Platelets (Bld) [#/Vol] 227 10*3/uL Normal 140 - 400 [place] [email or web address].; [place] [employer], [employer] [facility]. RBC (Bld) [#/Vol] 5.05 10*6/uL Normal 3.80 - 5.1 0 {Million/uL} [place] [employer] [facility].; [place] [employer] WBC (Bld) [#/Vol] 5.6 10*3/uL Normal 3.8 - 10.8 [place] [email or web address].; [place] [email or web address]. No Panel Informationon 02-21 BUN/CREATININE RATIO NOT APPLICABLE Normal 6 - 22 [facility]; [facility] eGFR NON-AFR. JAMAICAN 70 Normal [facility]; [facility] TSH W/REFLEX TO FT4 2.98 {mIU/L} Normal [facility]; [facility] Laboratory - Chemistry and C hemistry - challengeon 08-12-2021 Albumin [Mass/Vol] 4.0 g/dL Normal 3.6 - 5.1 g/dL [facility]; [facility] Albumin/Globulin [Mass ratio] 1.3 {ratio} Normal 1.0 - 2.5 [facility]; [facility] ALP [Catalytic activity/Vol] 71 U/L Normal 37 - 153 U/L [facility]; [facility] ALT [Catalytic activity/Vol] 15 U/L Normal 6 - 29 U/L [facility]; [facility] AST [Catalytic activity/Vol] 13 U/L Normal 10 - 35 U/L [facility]; [facility] Bilirubin [Mass/Vol] 0.3 mg/dL Normal 0.2 - 1 .2 mg/dL [facility]; [facility] Bilirubin Ql (U) Negative Normal [facility]; [facility] Calcium [Mass/Vol] 9.4 mg/dL Normal 8.6 - 10. 4 mg/dL [facility]; [facility] Chloride [Moles/Vol] 103 mmol/L Normal 98 - 11 0 mmol/L [facility]; [facility] CO2 [Moles/Vol] 25 mmol/L Normal 20 - 32 mmol/L [facility]; [facility] Creatinine [Mass/Vol] 1.05 mg/dL Normal 0.50 - 1.05 mg/dL [facility]; [facility] GFR/1.73 sq M.predicted among blacks MDRD (S/P/Bld) [Vol rate/Area] 70 mL/min/{1.73_m2} Normal [facility]; [facility] Glucose [Mass/Vol] 93 mg/dL Normal 65 - 99 mg/dL [facility]; [place] [address] [facility] Ketones Ql (U) Negative Normal [facility]; [facility] pH (U) 5.0 [pH] Abnormal [facility]; [facility] Potassium [Moles/Vol] 4.4 mmol/L Normal 3.5 - 5.3 mmol/L [facility]; [facility] Protein [Mass/Vol] 7.1 g/dL Normal 6.1 - 8.1 g/dL [facility]; [place] [address] [facility] Sodium [Moles/Vol] 138 mmol/L Normal 135 - 146 mmol/L [facility]; [place] [address] [facility] Specific gravity (U) [Rel density] 1.020 Normal [facility]; [place] [address] [facility] Urea nitrogen [Mass/Vol] 20 mg/dL Normal 7 - 25 mg/dL [facility]; [place] [address] [facility] Urobilinogen Qn (U) 0.2 mg/dL Normal [facility]; [place] [address] [facility] Laboratory - Hematology and Cell countson 08-12-2021 Basophils (Bld) [#/Vol] 0.007 10*3/uL Normal 0 - 200 {cells/uL} [facility]; [place] [address] [facility] Basophils/100 WBC (Bld) 0.1 % Normal [facility]; [place] [address] [facility] Eosinophils (Bld) [#/Vol] 0.455 10*3/uL Normal 15 - 500 {cells/uL} [facility]; [place] [address] [facility] Eosinophils/100 WBC (Bld) 6.6 % Normal [facility]; [place] [address] [facility] Erythrocyte distribution width (RBC) [Ratio] 21.9 % Abnormal 11.0 - 15.0 % [facility]; [facility]. Hematocrit (Bld) [Volume fraction] 36.5 % Normal 35.0 - 45.0 % [facility].; [facility] Hemoglobin (Bld) [Mass/Vol] 11.3 g/dL Abnormal 11.7 - 15.5 g/dL [facility].; [facility], [facility]. Hemoglobin Ql (U) trace-lysed Normal [facility].; [facility], [facility] Lymphocytes (Bld) [#/Vol] 1.622 10*3/uL Normal 850 - 3900 {cells/uL} [facility].; [facility], [facility]. Lymphocytes/100 WBC (Bld) 23.5 % Normal [facility]; [facility], [facility]. MCH (RBC) [Entitic mass] 27.0 pg Normal 27.0 - 33.0 pg [facility].; [facility], [facility]. MCHC (RBC) [Mass/Vol] 31.0 g/dL Abnormal 32.0 - 36.0 g/dL [facility].; [facility], [facility]. MCV (RBC) [Entitic vol] 87.3 fL Normal 80.0 - 100.0 fL [facility].; [facility], [facility]. Monocytes (Bld) [#/Vol] 0.545 10*3/uL Normal 200 - 950 {cells/uL} [facility], [facility].; [facility], [facility]. Monocytes/100 WBC (Bld) 7.9 % Normal [facility].; [facility], [facility]. Neutrophils (Bld) [#/Vol] 4.271 10*3/uL Normal 1500 - 7800 {cells/uL} [facility].; [facility] [employer], [facility]. Neutrophils/100 WBC (Bld) 61.9 % Normal [facility].; [place] [address] [facility], [facility]. Platelet mean volume (Bld) [Entitic vol] 9.8 fL Normal 7.5 - 12.5 fL [facility].; [place] [employer], [facility]. Platelets (Bld) [#/Vol] 292 10*3/uL Normal 140 - 400 [place] [email or web address].; [employer]. RBC (Bld) [#/Vol] 4.18 10*6/uL Normal 3.80 - 5.1 0 {Million/uL} [employer], [employer]. WBC (Bld) [#/Vol] 6.9 10*3/uL Normal 3.8 - 10.8 [facility] [email or web address]. Laboratory - Specimen inform ationon 08-12-2021 Appearance (U) cloudy Abnormal [employer], [employer]. Color (U) dark Yellow Normal [employer]. Laboratory - Urinalysison Glucose Test strip (U) [Mass/Vol] Negative Normal [employer], [employer]. Leukocyte esterase Test strip Ql (U) moderate Abnormal [employer], [employer]. Nitrite Ql (U) Negative Normal [employer]. Protein Ql (U) Negative Normal [employer]. No Panel Informationon 08-12 BUN/CREATININE RATIO NOT APPLICABLE Normal 6 - Jha [email or web address].; [employer]. CBC MORPHOLOGY SEE NOTE Normal [employer]. Work Phone: CULTURE, URINE, ROUTINE SEE NOTE Normal [employer]. eGFR NON-AFR. JAMAICAN 61 Normal [facility] [email or web address]. GLOBULIN 3.1 Normal 1.9 - 3.7 [employer]. Basic Metabolic Panelon Anion gap [Moles/Vol] 6 mmol/L Normal 3-13 [facility] Comment on above: Performed By: #### H MD AVANIIFF, PHOS3, BMP3, MG3 ####[facility] [employer] [address] [address]#### OSM ####[facility] [place] [address] Calcium [Mass/Vol] 8.7 mg/dL Normal 8.4-10.4 [facility] Comment on above: Performed By: #### H AVANI, MDIFF, PHOS3, BMP3, MG3 ####[place] [address] [place] [address]#### OSM ####[facility] [place] [address] CO2 [Moles/Vol] 27 mmol/L Normal 22-30 [facility] Comment on above: Performed By: #### H EMDApril, MDIFF, PHOS3, BMP3, MG3 ####[place] [address] [place], [place] #### OSM ####[place] [address] [place] [address] Glucose [Mass/Vol] 96 mg/dL Normal 70-100 [facility] Comment on above: Performed By: #### H AVANI, MDIFF, PHOS3, BMP3, MG3 ####[place] [address] [place] #### OSM ####[facility] [place] [address] Urea nitrogen [Mass/Vol] 53 mg/dL High 7-20 [facility] Comment on above: Performed By: #### H AVANI, TYLER, PHOS3, BMP3, MG3 ####[place] [address], [place] #### OSM ####[facility] [place] [address] Creatinine [Mass/Vol] 2.25 mg/dL High 0.52-1.25 [facility] Comment on above: Performed By: #### H EMDApril, MDIFF, PHOS3, BMP3, MG3 ####[place] [address], [place] #### OSM ####[facility] [place] [address] GFR/1.73 sq M.predicted among blacks MDRD (S/P/Bld) [Vol rate/Area] 27.9 mL/min/{1.73_m2} Abnormal >60 [facility] Comment on above: Performed By: #### H TYLER VARMA, PHOS3, BMP3, MG3 ####[address] [employer] [place], [place] #### OSM ####[facility] [employer] [address] [place] [address] GFR/1.73 sq M.predicted among non-blacks MDRD (S/P/Bld) [Vol rate/Area] 24.0 mL/min/{1.73_m2} Abnormal >60 [facility] Comment on above: Result Comment: KDIG O guidelines provide the following GFR categories:Stage GFR(ml/min/1.73 m2) TermsG1 >=90 Normal or highG2 60-89 Mildly decreased*G3a 45-59 Mildly to moderately azlbegoirF8h 30-44 Moderately to severely decreasedG4 15-29 Severely [...] #### H TYLER VARMA, PHOS3, BMP3, MG3 ####[address] [employer] [place], [place] #### OSM ####[email or web address] [place] [address] Potassium [Moles/Vol] 4.6 mmol/L Normal 3.5-5.1 [facility] Comment on above: Performed By: #### H TYLER VARMA, PHOS3, BMP3, MG3 ####[address] [employer] [place] #### OSM ####[facility] [employer] [address] [facility] [place] [address] Chloride [Moles/Vol] 105 mmol/L Normal 98-107 [facility] Comment on above: Performed By: #### H TYLER VARMA, PHOS3, BMP3, MG3 ####[facility] [employer] [address] [place] [address]#### OSM ####[facility] [employer] [address] [facility] [place] [address] Sodium [Moles/Vol] 139 mmol/L Normal 135-145 [facility] Comment on above: Performed By: #### H TYLER VARMA, PHOS3, BMP3, MG3 ####[facility] [address] [place] [address]#### OSM ####[facility] [employer] [address] [facility] [place] [address] Basic Metabolic PanelOrdered By: Sivler Nick on 07-03-2021 Anion gap [Moles/Vol] 6 mmol/L 3 - 13 mmol/L [facility] Work Phone: Calcium [Mass/Vol] 8.7 mg/dL 8.4 - 10. 4 mg/dL [facility] Work Phone: Chloride [Moles/Vol] 105 mmol/L 98 - 10 7 mmol/L [facility] Work Phone: CO2 [Moles/Vol] 27 mmol/L 22 - 30 mmol/L [facility] Work Phone: Creatinine [Mass/Vol] 2.25 mg/dL High 0.52 - 1.25 mg/dL [facility] Work Phone: EGFR IF NonAfrican Haitian 24.0 mL/min Abnormal >60 [facility] Work Phone: GFR/1.73 sq M.predicted among blacks MDRD (S/P/Bld) [Vol rate/Area] 27.9 mL/min/{1.73_m2} Abnormal >60 [facility] Work Phone: Glucose [Mass/Vol] 96 mg/dL 70 - 100 mg/dL [facility] Work Phone: [phone] Potassium [Moles/Vol] 4.6 mmol/L 3.5 - 5.1 mmol/L [facility] Work Phone: Sodium [Moles/Vol] 139 mmol/L 135 - 145 mmol/L [employer] Work Phone: [phone] Urea nitrogen (BldV) [Mass/Vol] 53 mg/dL High 7 - 20 mg/dL [facility] Work Phone: CBC auto differentialOrdered By: Michelle Petty on 07-03-2021 Hematocrit (Bld) [Volume fraction] 28.3 % Low 35.0 - 47.0 % [employer] Work Phone: [phone] Hemoglobin.gastrointes tinal spec 1 Ql (Stl) 8.9 g/dL Low 11.7 - 16.0 g/dL [employer] Work Phone: [phone] Interpretation and review of laboratory results Abnormal [facility] Work Phone: MCH (RBC) [Entitic mass] 24.2 pg Low 26.0 - 34.0 pg [employer] Work Phone: MCHC (RBC) [Mass/Vol] 31.5 % Low 32.0 - 36.0 % [facility] Work Phone: MCV (RBC) [Entitic vol] 76.9 fL Low 79.0 - 98.0 fL [facility] Work Phone: Platelet distribution width (Bld) [Ratio] 24.5 % High 11.5 - 14.5 % [facility] Work Phone: Platelet mean volume (Bld) [Entitic vol] 6.8 fL Low 7.4 - 10.4 fL [employer] Work Phone: Platelets (Bld) [#/Vol] 229 10*3/uL 140 - 440 10*3/uL [employer] Work Phone: RBC (Bld) [#/Vol] 3.68 10*6/uL Low 3.80 - 5.2 0 10*6/uL [employer] Work Phone: WBC (Bld) [#/Vol] 5.0 10*3/uL 3.6 - 10.7 10*3/uL [facility] Work Phone: [facility] Work Phone: [facility] Work Phone: Glucose,Bedsideon 07-03-2021 Glucose [Mass/Vol] 121 mg/dL High 70-100 [facility] Comment on above: Result Comment: Test performed by glucose meter. Results may be 10%-15% lowerthan serum/plasma values. (CLIA ID [id number]) Performed By: #### B GLU ####[employer] [place] [address] Glucose [Mass/Vol] 121 mg/dL High 70-100 [facility] Comment on above: Result Comment: Test performed by glucose meter. Results may be 10%-15% lowerthan serum/plasma values. (CLIA ID [id number]) Performed By: #### B GLU ####[address] [place] [address] Glucose [Mass/Vol] 103 mg/dL High 70-100 [facility] Comment on above: Result Comment: Test performed by glucose meter. Results may be 10%-15% lowerthan serum/plasma values. (CLIA ID [id number]) Performed By: #### B GLU ####[address] [place] [address] Hemogram w/ Autodiffon 07-03 Erythrocyte distribution width (RBC) [Ratio] 24.5 % High 11.5-14.5 [facility] Comment on above: Performed By: #### H TYLER VARMA, PHOS3, BMP3, MG3 ####[address] [place], [place] #### OSM ####[address] [place] [address] Hematocrit (Bld) [Volume fraction] 28.3 % Low 35.0-47.0 [facility] Comment on above: Performed By: #### H TYLER VARMA, PHOS3, BMP3, MG3 ####[place] [address] [place], [place] #### OSM ####[facility] [place] [address] Hemoglobin (Bld) [Mass/Vol] 8.9 g/dL Low 11.7-16.0 [facility] Comment on above: Performed By: #### H AVANI, TYLER, PHOS3, BMP3, MG3 ####[place] [address] [place], [place] #### OSM ####[facility] [place] [address] MCH (RBC) [Entitic mass] 24.2 pg Low 26.0-34.0 [facility] Comment on above: Performed By: #### H AVANI, MDIFF, PHOS3, BMP3, MG3 ####[address] #### OSM ####[address] [place] [address] MCHC 31.5 % Low 32.0-36.0 [facility] Comment on above: Performed By: #### H AVANI, IFF, PHOS3, BMP3, MG3 ####[place] [address] [place], [place] #### OSM ####[facility] [place], [place] MCV (RBC) [Entitic vol] 76.9 fL Low 79.0-98.0 [facility] Comment on above: Performed By: #### H AVANI, MDIFF, PHOS3, BMP3, MG3 ####[address] #### OSM ####[facility] [place], [place] Platelet mean volume (Bld) [Entitic vol] 6.8 fL Low 7.4-10.4 [facility] Comment on above: Performed By: #### H AVANI, MDIFF, PHOS3, BMP3, MG3 ####[facility] [place], [place] #### OSM ####[facility] [place] [address] Platelets (Bld) [#/Vol] 229 10*3/uL Normal 140-440 [facility] Comment on above: Performed By: #### H TYLER VARMA, PHOS3, BMP3, MG3 ####[facility] [facility], [place] #### OSM ####[facility] [place] [address] RBC (Bld) [#/Vol] 3.68 10*6/uL Low 3.80-5.20 [facility] Comment on above: Performed By: #### H TYLER VARMA, PHOS3, BMP3, MG3 ####[place] [address] [place], [place] #### OSM ####[place] [address] [place] [address] WBC (Bld) [#/Vol] 5.0 10*3/uL Normal 3.6-10.7 [facility] Comment on above: Performed By: #### H TYLER VARMA, PHOS3, BMP3, MG3 ####[place] [address] [place], [place] #### OSM ####[facility] [place] [address] Magnesiumon 07-03-2021 Magnesium [Mass/Vol] 1.6 mg/dL Normal 1.6-2.3 [facility] Comment on above: Performed By: #### H TYLER VARMA, PHOS3, BMP3, MG3 ####[place] [address] [facility], [place] #### OSM ####[facility] [place] [address] MagnesiumOrdered By: Michelle lauren on 07-03-2021 Magnesium [Mass/Vol] 1.6 mg/dL 1.6 - 2 .3 mg/dL [facility] Work Phone: Manual Diffon 07-03-2021 Abs Baso Cnt 0.0 10*3/uL Normal 0.0-0.2 [facility] Comment on above: Performed By: #### H EMDF, MDIFF, PHOS3, BMP3, MG3 ####[employer] [address] [place], [place] #### OSM ####[facility] [employer] [facility] [address] [place] [address] Abs Eosin Cnt 0.2 10*3/uL Normal 0.0-0.5 [facility] Comment on above: Performed By: #### H EMDF, MDIFF, PHOS3, BMP3, MG3 ####[address] [place], [place] #### OSM ####[employer] [facility] [employer] [address] [place] [place] [address] Abs Lymph Cnt 1.2 10*3/uL Normal 1.1-4.5 [facility] Comment on above: Performed By: #### H EMDF, MDIFF, PHOS3, BMP3, MG3 ####[address] [place] [address] #### OSM ####[employer] [address] [place] [address] Abs Monocyte Cnt 0.6 10*3/uL Normal 0.2-1.1 [facility] Comment on above: Performed By: #### H EMDF, MDIFF, PHOS3, BMP3, MG3 ####[employer] [address] [place], [place] #### OSM ####[employer] [address] [place] [address] Abs Neutrophile Cnt 3.1 10*3/uL Normal 2.2-8.2 [facility] Comment on above: Performed By: #### H EMDF, MDIFF, PHOS3, BMP3, MG3 ####[email or web address] [address] [place], [place] #### OSM ####[facility] [address] [place] [address] Bands 7 % High 0-3 [facility] Comment on above: Performed By: #### H EMDF, MDIFF, PHOS3, BMP3, MG3 ####[facility] [address] [place] [address]#### OSM ####[facility] [address] [place] [address] Basophils 0 % Normal 0-2 [facility] Comment on above: Performed By: #### H EMDF, MDIFF, PHOS3, BMP3, MG3 ####[facility] [address] [place] [address]#### OSM ####[facility] [address] [place] [address] Cells counted 100 Normal [facility] Comment on above: Performed By: #### H EMDF, MDIFF, PHOS3, BMP3, MG3 ####[facility] [address], [place] #### OSM ####[facility] [place] [address] Eosinophils 4 % Normal 1-6 [facility] Comment on above: Performed By: #### H EMDF, MDIFF, PHOS3, BMP3, MG3 ####[facility] [address] [facility] [address] [place] [address] #### OSM ####[facility] [address] [place] [address] Lymphocytes 23 % Normal 20-40 [facility] Comment on above: Performed By: #### H EMDF, MDIFF, PHOS3, BMP3, MG3 ####[facility] [address] [place] [address]#### OSM ####[facility] [address] [place] [address] Monocytes 11 % High 2-10 [facility] Comment on above: Performed By: #### H EMDF, MDIFF, PHOS3, BMP3, MG3 ####[facility] [address] [place] [address]#### OSM ####[facility] [address] [place] [address] RBC Morphology See Prev Normal [facility] Comment on above: Performed By: #### H TYLRE VARMA, PHOS3, BMP3, MG3 ####[facility] [address] [place] [address]#### OSM ####[facility] [address] [place] [address] Seg Neutrophils 55 % Normal 40-80 [facility] Comment on above: Performed By: #### H TYLER VARMA, PHOS3, BMP3, MG3 ####[facility] [address] [place] [address]#### OSM ####[facility] [address] [place] [address] Manual DifferentialOrdered B y: Michelle Laquita on 07-03-2021 Absolute Baso # 0.0 10*3/uL 0.0 - 0.2 10*3/uL [facility] Work Phone: [phone] Absolute Eos # 0.2 10*3/uL 0.0 - 0.5 10*3/uL [facility] Work Phone: ) 22 Absolute Lymph # 1.2 10*3/uL 1.1 - 4.5 10*3/uL [facility] Work Phone: ) 22 Absolute [place] # 0.6 10*3/uL 0.2 - 1.1 10*3/uL [...] 20 - 40 % [facility] Work Phone: [phone] Monocytes/100 WBC (Bld) 11 % High 2 - 10 % [facility] Work Phone: [phone] RBC (Bld) [#/Vol] See Prev [facility] Work Phone: [phone] Seg Neutrophils 55 % 40 - 80 % [facility] Work Phone: [phone] TOTAL CELLS COUNTED 100 [facility] Work Phone: [phone] [facility] Work Phone: [phone] [facility] Work Phone: [phone] Panel InformationOrdered By: Michelle Petty on 07-03-2021 Interpretation and review of laboratory results Abnormal [facility] Work Phone: [phone] [facility] Work Phone: [phone] [facility] Work Phone: [phone] OsmolalityOrdered By: Lindsey Joyce on 07-03-2021 Interpretation and review of laboratory results Abnormal [facility] Work Phone: [phone] Serum Osmolality 308 mosm/kg High 280 - 300 mosm/kg [facility] Work Phone: [phone] [facility] Work Phone: 1 [facility] Work Phone: [phone] Osmolality,Serumon 1 Osmolality,Serum 308 mosm/kg High 280-300 [facility] [employer] Comment on above: Performed By: #### H AVANI, IFF, PHOS3, BMP3, MG3 ####[employer] [address] [place] [address]#### OSM ####[employer] [address] [place] [address] POCT GlucoseOrdered By: Jessica Soni on 07-03-2021 Glucose [Mass/Vol] 121 mg/dL High 70 - 100 mg/dL [facility] Work Phone: [phone] Interpretation and review of laboratory results Abnormal [facility] Work Phone: [phone] [facility] Work Phone: [phone] [facility] Work Phone: [phone] Glucose [Mass/Vol] 121 mg/dL High 70 - 100 mg/dL [facility] Work Phone: [phone] Interpretation and review of laboratory results Abnormal [facility] Work Phone: [phone] [facility] Work Phone: [phone] [facility] Work Phone: [phone] Glucose [Mass/Vol] 103 mg/dL High 70 - 100 mg/dL [facility] Work Phone: [phone] Interpretation and review of laboratory results Abnormal [facility] Work Phone: [phone] [facility] Work Phone: [phone] [facility] Work Phone: [phone] Phosphoruson 07-03-2021 Phosphate [Mass/Vol] 6.3 mg/dL High 2.5-4.5 [facility] Comment on above: Performed By: #### H EMDF, MDIFF, PHOS3, BMP3, MG3 ####[facility] [employer] [id number] [place] [address]#### OSM ####[facility] [employer] [address] [place] [address] PhosphorusOrdered By: Michelle pearson on 07-03-2021 Phosphate [Mass/Vol] 6.3 mg/dL High 2.5 - 4 .5 mg/dL [facility] Work Phone: Basic Metabolic Panelon Calcium [Mass/Vol] 8.8 mg/dL Normal 8.4-10.4 [facility] Comment on above: Performed By: #### O SM ####[facility] [employer] [id number] [place] [place] [address]#### LFT3, HEMDF, MDIFF, BMP3, MG3, PHOS3 ####[facility] [address] [place] [address] Anion gap [Moles/Vol] 6 mmol/L Normal 3-13 [facility] Comment on above: Performed By: #### O SM ####[facility] [employer] [id number] [place] [place] [address]#### LFT3, HEMDF, MDIFF, BMP3, MG3, PHOS3 ####[facility] [place] [address] CO2 [Moles/Vol] 26 mmol/L Normal 22-30 [facility] Comment on above: Performed By: #### O SM ####[facility] [employer] [id number] [place] [address]#### LFT3, HEMDF, MDIFF, BMP3, MG3, PHOS3 ####[address] [place] [address] Creatinine [Mass/Vol] 2.26 mg/dL High 0.52-1.25 [facility] Comment on above: Performed By: #### O SM ####[facility] [employer] [place] [address] [place] [address]#### LFT3, HEMDF, MDIFF, BMP3, MG3, PHOS3 ####[facility] [employer] [id number] [place] [address] GFR/1.73 sq M.predicted among blacks MDRD (S/P/Bld) [Vol rate/Area] 27.7 mL/min/{1.73_m2} Abnormal >60 [facility] Comment on above: Performed By: #### O SM ####[facility] [employer] [address] [place] [address]#### LFT3, HEMDF, MDIFF, BMP3, MG3, PHOS3 ####[facility] [employer] [id number] [place] [address] GFR/1.73 sq M.predicted among non-blacks MDRD (S/P/Bld) [Vol rate/Area] 23.9 mL/min/{1.73_m2} Abnormal >60 [facility] Comment on above: Result Comment: KDIG O guidelines provide the following GFR categories:Stage GFR(ml/min/1.73 m2) TermsG1 >=90 Normal or highG2 60-89 Mildly decreased*G3a 45-59 Mildly to moderately wmbifppbeP5f 30-44 Moderately to severely decreasedG4 15-29 Severely [...] creatinine secretion. Performed By: #### O SM ####[address] [place] [address]#### LFT3, HEMDF, MDIFF, BMP3, MG3, PHOS3 ####[address] [place] [address] Glucose [Mass/Vol] 95 mg/dL Normal 70-100 [facility] Comment on above: Performed By: #### O SM ####[address] [facility] [place] [address]#### LFT3, HEMDF, MDIFF, BMP3, MG3, PHOS3 ####[address] [place] [address] Urea nitrogen [Mass/Vol] 60 mg/dL High 7-20 [facility] Comment on above: Performed By: #### O SM ####[address] [facility] [place] [address]#### LFT3, HEMDF, MDIFF, BMP3, MG3, PHOS3 ####[address] [place] [address] Potassium [Moles/Vol] 5.1 mmol/L Normal 3.5-5.1 [facility] Comment on above: Performed By: #### O SM ####[address] [place] [address]#### LFT3, HEMDF, MDIFF, BMP3, MG3, PHOS3 ####[address] [facility] [place] [address] Sodium [Moles/Vol] 139 mmol/L Normal 135-145 [facility] Comment on above: Performed By: #### O SM ####[address] [place] [address]#### LFT3, HEMDF, MDIFF, BMP3, MG3, PHOS3 ####[email or web address] [id number] [place] [address] Chloride [Moles/Vol] 107 mmol/L Normal 98-[address] [facility] [employer] System Comment on above: Performed By: #### O SM ####[email or web address] [address] [place] [address]#### LFT3, HEMDF, MDIFF, BMP3, MG3, PHOS3 ####[email or web address] [address] [place] [address] Basic Metabolic PanelOrdered By: Silver Nick on 07-02-2021 Anion gap [Moles/Vol] 6 mmol/L 3 - 13 mmol/L [facility] Work Phone: Calcium [Mass/Vol] 8.8 mg/dL 8.4 - 10. 4 mg/dL [facility] Work Phone: [phone] Chloride [Moles/Vol] 107 mmol/L 98 - 10 7 mmol/L [facility] Work Phone: [phone] CO2 [Moles/Vol] 26 mmol/L 22 - 30 mmol/L [facility] Work Phone: Creatinine [Mass/Vol] 2.26 mg/dL High 0.52 - 1.25 mg/dL [facility] Work Phone: EGFR IF NonAfrican Haitian 23.9 mL/min Abnormal >60 [facility] Work Phone: [...] 60 mg/dL High 7 - 20 mg/dL [facility] Work Phone: [phone] CBC auto differentialOrdered By: Michelle Petty on 07-02-2021 Hematocrit (Bld) [Volume fraction] 27.4 % Low 35.0 - 47.0 % [facility] Work Phone: [phone] Hemoglobin.gastrointes tinal spec 1 Ql (Stl) 8.7 g/dL Low 11.7 - 16.0 g/dL [facility] Work Phone: [phone] Interpretation and review of laboratory results Abnormal [facility] Work Phone: [phone] MCH (RBC) [Entitic mass] 23.8 pg Low 26.0 - 34.0 pg [facility] Work Phone: [phone] MCHC (RBC) [Mass/Vol] 31.7 % Low 32.0 - 36.0 % [facility] Work Phone: [phone] MCV (RBC) [Entitic vol] 75.1 fL Low 79.0 - 98.0 fL [facility] Work Phone: [phone] Platelet distribution width (Bld) [Ratio] 24.8 % High 11.5 - 14.5 % [facility] Work Phone: [phone] Platelet mean volume (Bld) [Entitic vol] 7.3 fL Low 7.4 - 10.4 fL [facility] Work Phone: [phone] Platelets (Bld) [#/Vol] 224 10*3/uL 140 - 440 10*3/uL [facility] Work Phone: [phone] RBC (Bld) [#/Vol] 3.64 10*6/uL Low 3.80 - 5.2 0 10*6/uL [facility] Work Phone: [phone] WBC (Bld) [#/Vol] 4.9 10*3/uL 3.6 - 10.7 10*3/uL [facility] Work Phone: [phone] [facility] Work Phone: [phone] [facility] Work Phone: [phone] Glucose,Bedsideon 07-02-2021 Glucose [Mass/Vol] 164 mg/dL High 70-100 [facility] Comment on above: Result Comment: Test performed by glucose meter. Results may be 10%-15% lowerthan serum/plasma values. (CLIA ID [id number]) Performed By: #### B GLU ####[address] [place] Glucose [Mass/Vol] 128 mg/dL High 70-100 [facility] Comment on above: Result Comment: Test performed by glucose meter. Results may be 10%-15% lowerthan serum/plasma values. (CLIA ID [id number]) Performed By: #### B GLU ####[address] [place], [place] Glucose [Mass/Vol] 139 mg/dL High 70-100 [facility] Comment on above: Result Comment: Test performed by glucose meter. Results may be 10%-15% lowerthan serum/plasma values. (CLIA ID [id number]) Performed By: #### B GLU ####[address] [place], [place] Glucose [Mass/Vol] 108 mg/dL High 70-100 [facility] Comment on above: Result Comment: Test performed by glucose meter. Results may be 10%-15% lowerthan serum/plasma values. (CLIA ID [id number]) Performed By: #### B GLU ####[address] [place], [place] Hemogram w/ Autodiffon 07-02 Erythrocyte distribution width (RBC) [Ratio] 24.8 % High 11.5-14.5 [facility] Comment on above: Performed By: #### O SM ####[address] [place] [address]#### LFT3, HEMDF, MDIFF, BMP3, MG3, PHOS3 ####[address] [place], [place] Hematocrit (Bld) [Volume fraction] 27.4 % Low 35.0-47.0 [facility] Comment on above: Performed By: #### O SM ####[address] [place], [place] #### LFT3, HEMDF, MDIFF, BMP3, MG3, PHOS3 ####[address] [place], [place] Hemoglobin (Bld) [Mass/Vol] 8.7 g/dL Low 11.7-16.0 [facility] Comment on above: Performed By: #### O SM ####[address] [place], [place] #### LFT3, HEMDF, MDIFF, BMP3, MG3, PHOS3 ####[address] [place], [place] MCH (RBC) [Entitic mass] 23.8 pg Low 26.0-34.0 [facility] Comment on above: Performed By: #### O SM ####[address] [place], [place] #### LFT3, HEMDF, MDIFF, BMP3, MG3, PHOS3 ####[address] [place], [place] MCHC 31.7 % Low 32.0-36.0 [facility] Comment on above: Performed By: #### O SM ####[address] [place], [place] #### LFT3, HEMDF, MDIFF, BMP3, MG3, PHOS3 ####[address] [place], [place] MCV (RBC) [Entitic vol] 75.1 fL Low 79.0-98.0 [facility] Comment on above: Performed By: #### O SM ####[address] [place], [place] #### LFT3, HEMDF, MDIFF, BMP3, MG3, PHOS3 ####[address] [place], [place] Platelet mean volume (Bld) [Entitic vol] 7.3 fL Low 7.4-10.4 [facility] Comment on above: Performed By: #### O SM ####[address] [place] [address]#### LFT3, HEMDF, MDIFF, BMP3, MG3, PHOS3 ####[address] [place], [place] Platelets (Bld) [#/Vol] 224 10*3/uL Normal 140-440 [facility] Comment on above: Performed By: #### O SM ####[address] [place] [address]#### LFT3, HEMDF, MDIFF, BMP3, MG3, PHOS3 ####[address] [place], [place] RBC (Bld) [#/Vol] 3.64 10*6/uL Low 3.80-5.20 [facility] Comment on above: Performed By: #### O SM ####[address] [place], [place] #### LFT3, HEMDF, MDIFF, BMP3, MG3, PHOS3 ####[address] [place], [place] WBC (Bld) [#/Vol] 4.9 10*3/uL Normal 3.6-10.7 [facility] Comment on above: Performed By: #### O SM ####[address] [place], [place] #### LFT3, HEMDF, MDIFF, BMP3, MG3, PHOS3 ####[address] [place] Hepatic Functionon 1 ALP [Catalytic activity/Vol] 70 U/L Normal 38-126 [facility] Comment on above: Performed By: #### O SM ####[address] [place] [address]#### LFT3, HEMDF, MDIFF, BMP3, MG3, PHOS3 ####[address] [facility], [place] ALT [Catalytic activity/Vol] 23 U/L Normal 0-34 [facility] Comment on above: Result Comment: The ALT test is performed by an updated assay method.Please note that the reference intervals have beenchanged and are now sex specific. Performed By: #### O SM ####[address] [place] [address]#### LFT3, HEMDF, MDIFF, BMP3, MG3, PHOS3 ####[address] [facility] [place] AST [Catalytic activity/Vol] 25 U/L Normal 15-46 [facility] Comment on above: Performed By: #### O SM ####[address] [place] [address]#### LFT3, HEMDF, MDIFF, BMP3, MG3, PHOS3 ####[address] Bilirubin [Mass/Vol] 0.5 mg/dL Normal 0.2-1.3 [facility] Comment on above: Performed By: #### O SM ####[address] [place] [address]#### LFT3, HEMDF, MDIFF, BMP3, MG3, PHOS3 ####[address] [place], [place] Bilirubin.indirect [Mass/Vol] 0.0 mg/dL Normal 0.0-0.3 [facility] Comment on above: Performed By: #### O SM ####[address] [place] [address]#### LFT3, HEMDF, MDIFF, BMP3, MG3, PHOS3 ####[address], [place] Protein [Mass/Vol] 6.1 g/dL Low 6.3-8.2 [facility] Comment on above: Performed By: #### O SM ####[address] [place] [address]#### LFT3, HEMDF, MDIFF, BMP3, MG3, PHOS3 ####[address] [place] [address] Albumin [Mass/Vol] 2.8 g/dL Low 3.5-5.0 [facility] Comment on above: Performed By: #### O SM ####[facility] [employer] [id number] [place] [address]#### LFT3, HEMDF, MDIFF, BMP3, MG3, PHOS3 ####[facility] [employer] [id number] [place], [place] Hepatic Function PanelOrdere d By: Tello Sterling on 07-02-2021 Albumin [Mass/Vol] 2.8 g/dL Low 3.5 - 5.0 g/dL [facility] Work Phone: ALP (Bld) [Catalytic activity/Vol] 70 U/L 38 - 126 U/L [facility] Work Phone: ALT [Catalytic activity/Vol] 23 U/L 0 - 34 U/L [facility] Work Phone: AST [Catalytic activity/Vol] 25 U/L 15 - 46 U/L [facility] Work Phone: Bilirubin [Mass/Vol] 0.5 mg/dL 0.2 - 1 .3 mg/dL [facility] Work Phone: Bilirubin.indirect [Mass/Vol] 0.0 mg/dL 0.0 - 0.3 mg/dL [facility] Work Phone: Free PSA/Total PSA [Mass fraction] 6.1 g/dL Low 6.3 - 8.2 g/dL [facility] Work Phone: Magnesiumon 07-02-2021 Magnesium [Mass/Vol] 1.7 mg/dL Normal 1.6-2.[address] [facility] [employer] [facility] Comment on above: Performed By: #### O SM ####[facility] [employer] [id number] [place] [address]#### LFT3, HEMDF, MDIFF, BMP3, MG3, PHOS3 ####[facility] [employer] [id number] [place] [address] MagnesiumOrdered By: Michelle laruen on 07-02-2021 Magnesium [Mass/Vol] 1.7 mg/dL 1.6 - 2 .3 mg/dL [facility] Work Phone: Manual Diffon 07-02-2021 Abs Baso Cnt 0.0 10*3/uL Normal 0.0-0.[address] [facility] Comment on above: Performed By: #### O SM ####[address] [place] [address] Str[address] [place] [id number]#### LFT3, HEMDF, MDIFF, BMP3, MG3, PHOS3 ####[address] [place], [place] Abs Eosin Cnt 0.2 10*3/uL Normal 0.0-0.5 [facility] Comment on above: Performed By: #### O SM ####[address] [place] [address] Str[address] [place] [id number]#### LFT3, HEMDF, MDIFF, BMP3, MG3, PHOS3 ####[address] [place], [place] Abs Lymph Cnt 0.8 10*3/uL Low 1.1-4.5 [facility] Comment on above: Performed By: #### O SM ####[address] [place] [address]. [place] [address]#### LFT3, HEMDF, MDIFF, BMP3, MG3, PHOS3 ####[address] [place] [address] Abs Monocyte Cnt 0.3 10*3/uL Normal 0.2-1.1 [facility] Comment on above: Performed By: #### O SM ####[address] [place] [address] [place] [address]#### LFT3, HEMDF, MDIFF, BMP3, MG3, PHOS3 ####[address] [place], [place] Abs Neutrophile Cnt 3.5 10*3/uL Normal 2.2-8.2 [facility] Comment on above: Performed By: #### O SM ####[address] [place] [address]. [facility] [place] [address]#### LFT3, HEMDF, MDIFF, BMP3, MG3, PHOS3 ####[facility] [address] [facility] [place] Bands 6 % High 0-3 [facility] Comment on above: Performed By: #### O SM ####[address] [place] [address]#### LFT3, HEMDF, MDIFF, BMP3, MG3, PHOS3 ####[facility] [address] [facility] [place] Basophils 1 % Normal 0-2 [facility] Comment on above: Performed By: #### O SM ####[address] [place] [address]#### LFT3, HEMDF, MDIFF, BMP3, MG3, PHOS3 ####[address] [facility], [place] Cells counted 100 Normal [facility] Comment on above: Performed By: #### O SM ####[address] [facility] [place] [address]#### LFT3, HEMDF, MDIFF, BMP3, MG3, PHOS3 ####[facility] [facility] [place] Eosinophils 4 % Normal 1-6 [facility] Comment on above: Performed By: #### O SM ####[address] [place] [address]#### LFT3, HEMDF, MDIFF, BMP3, MG3, PHOS3 ####[facility] [address] [facility] [place] Lymphocytes 17 % Low 20-40 [facility] Comment on above: Performed By: #### O SM ####[place] [address] [place] [address]#### LFT3, HEMDF, MDIFF, BMP3, MG3, PHOS3 ####[facility] [address] [facility] [place] Monocytes 7 % Normal 2-10 [facility] Comment on above: Performed By: #### O SM ####[facility] [place] [address]#### LFT3, HEMDF, MDIFF, BMP3, MG3, PHOS3 ####[facility] [place] [address] RBC Morphology See Prev Normal [facility] Comment on above: Performed By: #### O SM ####[facility] [place] [address]#### LFT3, HEMDF, MDIFF, BMP3, MG3, PHOS3 ####[facility] [place] [address] Seg Neutrophils 65 % Normal 40-80 [facility] Comment on above: Performed By: #### O SM ####[place] [address] [place] [address]#### LFT3, HEMDF, MDIFF, BMP3, MG3, PHOS3 ####[facility] [place] [address] Manual DifferentialOrdered B y: Michelle Laquita on 07-02-2021 Absolute Baso # 0.0 10*3/uL 0.0 - 0.2 10*3/uL [facility] Work Phone: [phone] Absolute Eos # 0.2 10*3/uL 0.0 - 0.5 10*3/uL [facility] Work Phone: [phone] Absolute Lymph # 0.8 10*3/uL Low 1.1 - 4.5 10*3/uL [facility] Work Phone: 22 Absolute [place] # 0.3 10*3/uL 0.2 - 1.1 10*3/uL [facility] Work Phone: 22 Absolute Neut # 3.5 10*3/uL 2.2 - 8.2 10*3/uL [facility] Work Phone: [phone] Bands 6 % High 0 - 3 % [facility] Work Phone: [phone] Basophils/100 WBC (Bld) 1 % 0 - 2 % [facility] Work Phone: [phone] Eosinophils/100 WBC (Bld) 4 % 1 - 6 % [facility] Work Phone: [phone] Interpretation and review of laboratory results Abnormal [facility] Work Phone: [phone] Lymphocytes/100 WBC (Bld) 17 % Low 20 - 40 % [facility] Work Phone: [phone] Monocytes/100 WBC (Bld) 7 % 2 - 10 % [facility] Work Phone: [phone] RBC (Bld) [#/Vol] See Prev [facility] Work Phone: [phone] Neutrophils 65 % 40 - 80 % [facility] Work Phone: [phone] TOTAL CELLS COUNTED 100 [facility] Work Phone: [phone] [facility] Work Phone: [phone] [facility] Work Phone: [phone] Panel InformationOrdered By: Michelle Petty on 07-02-2021 Interpretation and review of laboratory results Abnormal [facility] Work Phone: [phone] [facility] Work Phone: [phone] [facility] Work Phone: [phone] OsmolalityOrdered By: Lindsey Joyce on 07-02-2021 Interpretation and review of laboratory results Abnormal [facility] Work Phone: [phone] Serum Osmolality 313 mosm/kg High 280 - 300 mosm/kg [facility] Work Phone: [phone] [facility] Work Phone: [phone] [facility] Work Phone: Osmolality,Serumon 1 Osmolality,Serum 313 mosm/kg High 280-300 [facility] Comment on above: Performed By: #### O SM ####[facility] [id number] [place] [address]#### LFT3, HEMDF, MDIFF, BMP3, MG3, PHOS3 ####[facility] [id number] [place] [address] POCT GlucoseOrdered By: Jessica Soni on 07-02-2021 Glucose [Mass/Vol] 164 mg/dL High 70 - 100 mg/dL [facility] Work Phone: Interpretation and review of laboratory results Abnormal [facility] Work Phone: [phone] [facility] Work Phone: [phone] [facility] Work Phone: [phone] Glucose [Mass/Vol] 128 mg/dL High 70 - 100 mg/dL [facility] Work Phone: [phone] Interpretation and review of laboratory results Abnormal [facility] Work Phone: [phone] [facility] Work Phone: [phone] [facility] Work Phone: [phone] Glucose [Mass/Vol] 139 mg/dL High 70 - 100 mg/dL [facility] Work Phone: [phone] Interpretation and review of laboratory results Abnormal [facility] Work Phone: [phone] [facility] Work Phone: [phone] [facility] Work Phone: [phone] Glucose [Mass/Vol] 108 mg/dL High 70 - 100 mg/dL [facility] Work Phone: [phone] Interpretation and review of laboratory results Abnormal [facility] Work Phone: [phone] [facility] Work Phone: [phone] [facility] Work Phone: [phone] Phosphoruson 07-02-2021 Phosphate [Mass/Vol] 6.1 mg/dL High 2.5-4.5 [facility] Comment on above: Performed By: #### O SM ####[facility] [employer] [address] [place] [address]#### LFT3, HEMDF, MDIFF, BMP3, MG3, PHOS3 ####[facility] [employer] [id number] [place] [address] PhosphorusOrdered By: Michelle pearson on 07-02-2021 Phosphate [Mass/Vol] 6.1 mg/dL High 2.5 - 4 .5 mg/dL [facility] Work Phone: Basic Metabolic Panelon Calcium [Mass/Vol] 8.4 mg/dL Normal 8.4-10.4 [facility] Comment on above: Performed By: #### P HOS3, MDIFF, MG3, HEMDF, BMP3 ####[facility] [place] [address]#### OSM ####[facility] [facility] [place] [address] Anion gap [Moles/Vol] 4 mmol/L Normal 3-13 [facility] Comment on above: Performed By: #### P HOS3, MDIFF, MG3, HEMDF, BMP3 ####[place] [address] [address]#### OSM ####[facility] [facility] [place] [address] CO2 [Moles/Vol] 24 mmol/L Normal 22-30 [facility] Comment on above: Performed By: #### P HOS3, MDIFF, MG3, HEMDF, BMP3 ####[address], [place] #### OSM ####[address] [facility] [place] [address] Creatinine [Mass/Vol] 2.36 mg/dL High 0.52-1.25 [facility] Comment on above: Performed By: #### P HOS3, MDIFF, MG3, HEMDF, BMP3 ####[place] [address] . [facility], [place] #### OSM ####[place] [address] [facility] [place] [address] GFR/1.73 sq M.predicted among blacks MDRD (S/P/Bld) [Vol rate/Area] 26.3 mL/min/{1.73_m2} Abnormal >60 [facility] Comment on above: Performed By: #### P HOS3, MDIFF, MG3, HEMDF, BMP3 ####[place] [address] [place] [address]#### OSM ####[place] [address] [facility] [place] [address] GFR/1.73 sq M.predicted among non-blacks MDRD (S/P/Bld) [Vol rate/Area] 22.7 mL/min/{1.73_m2} Abnormal >60 [facility] Comment on above: Result Comment: KDIG O guidelines provide the following GFR categories:Stage GFR(ml/min/1.73 m2) TermsG1 >=90 Normal or highG2 60-89 Mildly decreased*G3a 45-59 Mildly to moderately awexsfgryC8i 30-44 Moderately to severely decreasedG4 15-29 Severely [...] #### P HOS3, MDIFF, MG3, HEMDF, BMP3 ####[facility] [employer] [id number] [place], [place] #### OSM ####[facility] [place] [address] Glucose [Mass/Vol] 109 mg/dL High 70-100 [facility] Comment on above: Performed By: #### P HAM3, MDIFF, MG3, HEMDF, BMP3 ####[facility] [employer] [address] [place] [address]#### OSM ####[facility] [place] [address] Urea nitrogen [Mass/Vol] 61 mg/dL High 7-20 [facility] Comment on above: Performed By: #### P HOS3, MDIFF, MG3, HEMDF, BMP3 ####[facility] [employer] [id number] [place] [address]#### OSM ####[facility] [place] [address] Basic Metabolic PanelOrdered By: Silver Nick on 07-01-2021 Chloride [Moles/Vol] 106 mmol/L Normal 98-107 [facility] Work Phone: Comment on above: Performed By: #### P HOS3, MDIFF, MG3, HEMDF, BMP3 ####[facility] [id number] [employer] [place] [address]#### OSM ####[facility] [id number] [facility] [place] [address] Potassium [Moles/Vol] 5.0 mmol/L Normal 3.5-5.1 [facility] Work Phone: Comment on above: Performed By: #### P HOS3, MDIFF, MG3, HEMDF, BMP3 ####[facility] [id number] [place] [address]#### OSM ####[facility] [id number] [facility] [place] [address] Sodium [Moles/Vol] 135 mmol/L Normal 135-145 [facility] Work Phone: Comment on above: Performed By: #### P HOS3, MDIFF, MG3, HEMDF, BMP3 ####[facility] [address] [employer] [place] [address]#### OSM ####[facility] [address] [facility] [place] [address] Anion gap [Moles/Vol] 4 mmol/L 3 - 13 mmol/L [facility] Work Phone: Calcium [Mass/Vol] 8.4 mg/dL 8.4 - 10. 4 mg/dL [facility] Work Phone: CO2 [Moles/Vol] 24 mmol/L 22 - 30 mmol/L [facility] Work Phone: Creatinine [Mass/Vol] 2.36 mg/dL High 0.52 - 1.25 mg/dL [facility] Work Phone: EGFR IF NonAfrican Haitian 22.7 mL/min Abnormal >60 [facility] Work Phone: 22 GFR/1.73 sq M.predicted among blacks MDRD (S/P/Bld) [Vol rate/Area] 26.3 mL/min/{1.73_m2} Abnormal >60 [facility] Work Phone: [phone] Glucose [Mass/Vol] 109 mg/dL High 70 - 100 mg/dL [facility] Work Phone: Urea nitrogen (BldV) [Mass/Vol] 61 mg/dL High 7 - 20 mg/dL [facility] Work Phone: CBC auto differentialOrdered By: Michelle Petty on 07-01-2021 Hematocrit (Bld) [Volume fraction] 27.4 % Low 35.0 - 47.0 % [facility] Work Phone: Hemoglobin.gastrointes tinal spec 1 Ql (Stl) 8.8 g/dL Low 11.7 - 16.0 g/dL [facility] Work Phone: Interpretation and review of laboratory results Abnormal [facility] Work Phone: MCH (RBC) [Entitic mass] 24.0 pg Low 26.0 - 34.0 pg [facility] Work Phone: MCHC (RBC) [Mass/Vol] 32.2 % 32.0 - 36.0 % [facility] Work Phone: MCV (RBC) [Entitic vol] 74.4 fL Low 79.0 - 98.0 fL [facility] Work Phone: Platelet distribution width (Bld) [Ratio] 25.1 % High 11.5 - 14.5 % [facility] Work Phone: Platelet mean volume (Bld) [Entitic vol] 7.1 fL Low 7.4 - 10.4 fL [facility] Work Phone: Platelets (Bld) [#/Vol] 216 10*3/uL 140 - 440 10*3/uL [facility] Work Phone: RBC (Bld) [#/Vol] 3.69 10*6/uL Low 3.80 - 5.2 0 10*6/uL [facility] Work Phone: WBC (Bld) [#/Vol] 5.5 10*3/uL 3.6 - 10.7 10*3/uL [facility] Work Phone: [facility] Work Phone: [facility] Work Phone: Glucose,Bedsideon 07-01-2021 Glucose [Mass/Vol] 187 mg/dL High 70-100 [facility] Comment on above: Result Comment: Test performed by glucose meter. Results may be 10%-15% lowerthan serum/plasma values. (CLIA ID [id number]) Performed By: #### B GLU ####[address] [place], [place] Glucose [Mass/Vol] 165 mg/dL High 70-100 [facility] Comment on above: Result Comment: Test performed by glucose meter. Results may be 10%-15% lowerthan serum/plasma values. (CLIA ID [id number]) Performed By: #### B GLU ####[address] [place], [place] Glucose [Mass/Vol] 148 mg/dL High 70-100 [facility] Comment on above: Result Comment: Test performed by glucose meter. Results may be 10%-15% lowerthan serum/plasma values. (CLIA ID [id number]) Performed By: #### B GLU ####[address] [place], [place] Hemogram w/ Autodiffon 07-01 Erythrocyte distribution width (RBC) [Ratio] 25.1 % High 11.5-14.5 [facility] Comment on above: Performed By: #### P HAM3TYLER, MG3, HEMDF, BMP3 ####[address] [place], [place] #### OSM ####[address] [place] [address] Hematocrit (Bld) [Volume fraction] 27.4 % Low 35.0-47.0 [facility] Comment on above: Performed By: #### P HAM3, MDIFF, MG3, HEMDF, BMP3 ####[address] [place], [place] #### OSM ####[address] [place] [address] Hemoglobin (Bld) [Mass/Vol] 8.8 g/dL Low 11.7-16.0 [facility] Comment on above: Performed By: #### P HOS3, MDIFF, MG3, HEMDF, BMP3 ####[facility] [place], [place] #### OSM ####[facility] [facility] [address] MCH (RBC) [Entitic mass] 24.0 pg Low 26.0-34.0 [facility] Comment on above: Performed By: #### P HOS3, MDIFF, MG3, HEMDF, BMP3 ####[address] [place], [place] #### OSM ####[facility] [place] [address] MCHC 32.2 % Normal 32.0-36.0 [facility] Comment on above: Performed By: #### P HOS3, MDIFF, MG3, HEMDF, BMP3 ####[address] #### OSM ####[facility] [place] [address] MCV (RBC) [Entitic vol] 74.4 fL Low 79.0-98.0 [facility] Comment on above: Performed By: #### P HOS3, MDIFF, MG3, HEMDF, BMP3 ####[address] [place], [place] #### OSM ####[facility] [place] [address] Platelet mean volume (Bld) [Entitic vol] 7.1 fL Low 7.4-10.4 [facility] Comment on above: Performed By: #### P HOS3, MDIFF, MG3, HEMDF, BMP3 ####[address] [place], [place] #### OSM ####[facility] [place] [address] Platelets (Bld) [#/Vol] 216 10*3/uL Normal 140-440 [facility] Comment on above: Performed By: #### P HOS3, MDIFF, MG3, HEMDF, BMP3 ####[facility] [place], [place] #### OSM ####[facility] [place] [address] RBC (Bld) [#/Vol] 3.69 10*6/uL Low 3.80-5.20 [facility] Comment on above: Performed By: #### P HOS3, MDIFF, MG3, HEMDF, BMP3 ####[facility] [employer] [address] [place], [place] #### OSM ####[facility] [place] [address] WBC (Bld) [#/Vol] 5.5 10*3/uL Normal 3.6-10.7 [facility] Comment on above: Performed By: #### P HOS3, MDIFF, MG3, HEMDF, BMP3 ####[facility] [employer] [address] [place], [place] #### OSM ####[facility] [place] [address] Magnesiumon 07-01-2021 Magnesium [Mass/Vol] 1.8 mg/dL Normal 1.6-2.3 [facility] Comment on above: Performed By: #### P HOS3, MDIFF, MG3, HEMDF, BMP3 ####[facility] [employer] [address] [place], [place] #### OSM ####[facility] [place] [address] MagnesiumOrdered By: Michelle lauren on 07-01-2021 Magnesium [Mass/Vol] 1.8 mg/dL 1.6 - 2 .3 mg/dL [facility] Work Phone: Manual Diffon 07-01-2021 Abs Baso Cnt 0.0 10*3/uL Normal 0.0-0.2 [facility] Comment on above: Performed By: #### P HOS3, MDIFF, MG3, HEMDF, BMP3 ####[facility] . [place], [place] #### OSM ####[facility] [place] [address] Abs Eosin Cnt 0.2 10*3/uL Normal 0.0-0.5 [facility] Comment on above: Performed By: #### P HOS3, MDIFF, MG3, HEMDF, BMP3 ####[address] [place], [place] #### OSM ####[facility] [place] [address] Abs Lymph Cnt 0.8 10*3/uL Low 1.1-4.5 [facility] Comment on above: Performed By: #### P HOS3, MDIFF, MG3, HEMDF, BMP3 ####[address] #### OSM ####[place] [address] [place] [address] Abs Monocyte Cnt 0.1 10*3/uL Low 0.2-1.1 [facility] Comment on above: Performed By: #### P HOS3, MDIFF, MG3, HEMDF, BMP3 ####[address] [place], [place] #### OSM ####[facility] [place] [address] Abs Neutrophile Cnt 4.2 10*3/uL Normal 2.2-8.2 [facility] Comment on above: Performed By: #### P HOS3, MDIFF, MG3, HEMDF, BMP3 ####[address] [place], [place] #### OSM ####[facility] [place] [address] Bands 0 % Normal 0-3 [facility] Comment on above: Performed By: #### P HOS3, MDIFF, MG3, HEMDF, BMP3 ####[facility] [address] [place] [address]#### OSM ####[facility] [place] [address] Basophils 0 % Normal 0-2 [facility] Comment on above: Performed By: #### P HOS3, MDIFF, MG3, HEMDF, BMP3 ####[facility] [address] [facility] [place] [place] #### OSM ####[facility] [place] [address] Cells counted 100 Normal [facility] Comment on above: Performed By: #### P HOS3, MDIFF, MG3, HEMDF, BMP3 ####[facility] [facility] [place] [place] #### OSM ####[facility] [place] [address] Eosinophils 3 % Normal 1-6 [facility] Comment on above: Performed By: #### P HOS3, MDIFF, MG3, HEMDF, BMP3 ####[facility] [facility] [place] #### OSM ####[facility] [place] [address] Lymphocytes 14 % Low 20-40 [facility] Comment on above: Performed By: #### P HOS3, MDIFF, MG3, HEMDF, BMP3 ####[facility] [address] [facility] [place] #### OSM ####[facility] [place] [address] Metamyelocytes 3 % Abnormal <1 [facility] Comment on above: Performed By: #### P HOS3, MDIFF, MG3, HEMDF, BMP3 ####[facility] [address] [facility] [place] [place] #### OSM ####[facility] [place] [address] Monocytes 2 % Normal 2-10 [facility] Comment on above: Performed By: #### P HOS3, MDIFF, MG3, HEMDF, BMP3 ####[facility] [address] [place] [address]#### OSM ####[facility] [address] [place] [address] Myelocytes 1 % Abnormal <1 [facility] Comment on above: Performed By: #### P HOS3, MDIFF, MG3, HEMDF, BMP3 ####[facility] [address] [facility], [place] #### OSM ####[facility] [address] [place] [address] RBC Morphology See Prev Normal [facility] Comment on above: Performed By: #### P HOS3, MDIFF, MG3, HEMDF, BMP3 ####[facility] [address] [place], [place] #### OSM ####[facility] [address] [place] [address] Seg Neutrophils 77 % Normal 40-80 [facility] Comment on above: Performed By: #### P HOS3, MDIFF, MG3, HEMDF, BMP3 ####[facility] [address] [facility], [place] #### OSM ####[facility] [address] [place] [address] Manual DifferentialOrdered B y: Michelle Petty on 07-01-2021 Absolute Baso # 0.0 10*3/uL 0.0 - 0.2 10*3/uL [facility] Work Phone: [phone] Absolute Eos # 0.2 10*3/uL 0.0 - 0.5 10*3/uL [facility] Work Phone: [phone] Absolute Lymph # 0.8 10*3/uL Low 1.1 - 4.5 10*3/uL [facility] Work Phone: [phone] Absolute [place] # 0.1 10*3/uL Low 0.2 - 1.1 10*3/uL [facility] Work Phone: [phone] Absolute Neut # 4.2 10*3/uL 2.2 - 8.2 10*3/uL [facility] Work Phone: [phone] Bands 0 % 0 - 3 % [facility] Work Phone: [phone] Basophils/100 WBC (Bld) 0 % 0 - 2 % [facility] Work Phone: [phone] Eosinophils/100 WBC (Bld) 3 % 1 - 6 % [facility] Work Phone: [phone] Interpretation and review of laboratory results Abnormal [facility] Work Phone: [phone] Lymphocytes/100 WBC (Bld) 14 % Low 20 - 40 % [facility] Work Phone: [phone] Metamyelocytes 3 % Abnormal <1 [facility] Work Phone: [phone] Monocytes/100 WBC (Bld) 2 % 2 - 10 % [facility] Work Phone: [phone] Myelocytes 1 % Abnormal <1 [facility] Work Phone: [phone] RBC (Bld) [#/Vol] See Prev [facility] Work Phone: [phone] Seg Neutrophils 77 % 40 - 80 % [facility] Work Phone: [phone] TOTAL CELLS COUNTED 100 [facility] Work Phone: [phone] [facility] Work Phone: [phone] [facility] Work Phone: [phone] Panel InformationOrdered By: Michelle Petty on 07-01-2021 Interpretation and review of laboratory results Abnormal [facility] Work Phone: [phone] [facility] Work Phone: [phone] [facility] Work Phone: [phone] OsmolalityOrdered By: Lindsey Joyce on 07-01-2021 Interpretation and review of laboratory results Abnormal [facility] Work Phone: [phone] Serum Osmolality 309 mosm/kg High 280 - 300 mosm/kg [facility] Work Phone: [phone] [facility] Work Phone: [phone] [facility] Work Phone: [phone] Osmolality,Serumon 1 Osmolality,Serum 309 mosm/kg High 280-300 [facility] Comment on above: Performed By: #### P HOS3, MDIFF, MG3, HEMDF, BMP3 ####[facility] [id number] [place] [address]#### OSM ####[facility] [address] [place] [address] POCT GlucoseOrdered By: Jessica Soni on 07-01-2021 [...] 07-01-2021 Phosphate [Mass/Vol] 6.4 mg/dL High 2.5-4.[address] [facility] Comment on above: Performed By: #### P HAM3TYLER, MG3, HEMDF, BMP3 ####[facility] [address] [place] [address]#### OSM ####[facility] [id number] [place] [place] [address] PhosphorusOrdered By: Michelle pearson on 07-01-2021 Phosphate [Mass/Vol] 6.4 mg/dL High 2.5 - 4 .5 mg/dL [facility] Work Phone: Basic Metabolic Panelon 08-0 Calcium [Mass/Vol] 8.5 mg/dL Normal 8.4-10.4 [facility] Comment on above: Performed By: #### B MP3, PHOS3, LFT3, MG3, HEMDF ####[facility] [facility] [place] [address]#### OSM ####[facility] [place] [address] Glucose [Mass/Vol] 119 mg/dL High 70-100 [facility] Comment on above: Performed By: #### B MP3, PHOS3, LFT3, MG3, HEMDF ####[place] [address] [facility] [address]#### OSM ####[facility] [place] [address] Urea nitrogen [Mass/Vol] 58 mg/dL High 7-20 [facility] Comment on above: Performed By: #### B MP3, PHOS3, LFT3, MG3, HEMDF ####[place] [address] [facility] [place] #### OSM ####[facility] [place] [address] Anion gap [Moles/Vol] 6 mmol/L Normal 3-13 [facility] Comment on above: Performed By: #### B MP3, PHOS3, LFT3, MG3, HEMDF ####[place] [address] [facility] [place] #### OSM ####[facility] [place] [address] CO2 [Moles/Vol] 24 mmol/L Normal 22-30 [facility] Comment on above: Performed By: #### B MP3, PHOS3, LFT3, MG3, HEMDF ####[facility] [facility] [place] #### OSM ####[facility] [place] [address] Creatinine [Mass/Vol] 2.61 mg/dL High 0.52-1.25 [facility] Comment on above: Performed By: #### B MP3, PHOS3, LFT3, MG3, HEMDF ####[address] [place] [address]#### OSM ####[facility] [address] [place] [place] [address] GFR/1.73 sq M.predicted among blacks MDRD (S/P/Bld) [Vol rate/Area] 23.3 mL/min/{1.73_m2} Abnormal >60 [facility] Comment on above: Performed By: #### B MP3, PHOS3, LFT3, MG3, HEMDF ####[address] [place] [address]#### OSM ####[address] [place] [address] GFR/1.73 sq M.predicted among non-blacks MDRD (S/P/Bld) [Vol rate/Area] 20.1 mL/min/{1.73_m2} Abnormal >60 [facility] Comment on above: Result Comment: KDIG O guidelines provide the following GFR categories:Stage GFR(ml/min/1.73 m2) TermsG1 >=90 Normal or highG2 60-89 Mildly decreased*G3a 45-59 Mildly to moderately dmsrfihcgO0v 30-44 Moderately to severely decreasedG4 15-29 Severely [...] #### B MP3, PHOS3, LFT3, MG3, HEMDF ####[address] [place] [address]#### OSM ####[facility] [address] [place] [address] Potassium [Moles/Vol] 5.2 mmol/L High 3.5-5.1 [facility] Comment on above: Performed By: #### B MP3, PHOS3, LFT3, MG3, HEMDF ####[facility] [address] [place] [address]#### OSM ####[facility] [place] [address] Sodium [Moles/Vol] 134 mmol/L Low 135-145 [facility] Comment on above: Performed By: #### B MP3, PHOS3, LFT3, MG3, HEMDF ####[facility] [place] [address]#### OSM ####[facility] [facility] [place] [address] Chloride [Moles/Vol] 104 mmol/L Normal 98-107 [facility] Comment on above: Performed By: #### B MP3, PHOS3, LFT3, MG3, HEMDF ####[facility] [address] [place] [address]#### OSM ####[facility] [facility] [place] [address] Basic Metabolic PanelOrdered By: Silver Nick on 06-30-2021 Anion gap [Moles/Vol] 6 mmol/L 3 - 13 mmol/L [facility] Work Phone: Calcium [Mass/Vol] 8.5 mg/dL 8.4 - 10. 4 mg/dL [facility] Work Phone: Chloride [Moles/Vol] 104 mmol/L 98 - 10 7 mmol/L [facility] Work Phone: CO2 [Moles/Vol] 24 mmol/L 22 - 30 mmol/L [facility] Work Phone: Creatinine [Mass/Vol] 2.61 mg/dL High 0.52 - 1.25 mg/dL [facility] Work Phone: EGFR IF NonAfrican Haitian 20.1 mL/min Abnormal >60 [facility] Work Phone: [...] - 4.3 10*3/uL [facility] Work Phone: Absolute [place] # 0.6 10*3/uL 0.0 - 0.8 10*3/uL [...] 35.0 - 47.0 % [facility] Work Phone: [phone] Hemoglobin.gastrointes tinal spec 1 Ql (Stl) 9.3 g/dL Low 11.7 - 16.0 g/dL [facility] Work Phone: [phone] Interpretation and review of laboratory results Abnormal [facility] Work Phone: [phone] Lymphocytes/100 WBC (Bld) 15.0 % Low 20.0 - 40.0 % [facility] Work Phone: [phone] MCH (RBC) [Entitic mass] 23.8 pg Low 26.0 - 34.0 pg [facility] Work Phone: [phone] MCHC (RBC) [Mass/Vol] 32.1 % 32.0 - 36.0 % [facility] Work Phone: [phone] MCV (RBC) [Entitic vol] 74.1 fL Low 79.0 - 98.0 fL [facility] Work Phone: [phone] Monocytes/100 WBC (Bld) 8.8 % 2.0 - 10.0 % [facility] Work Phone: [phone] Platelet distribution width (Bld) [Ratio] 24.6 % High 11.5 - 14.5 % [facility] Work Phone: [phone] Platelet mean volume (Bld) [Entitic vol] 7.3 fL Low 7.4 - 10.4 fL [facility] Work Phone: [phone] Platelets (Bld) [#/Vol] 206 10*3/uL 140 - 440 10*3/uL [facility] Work Phone: [phone] RBC (Bld) [#/Vol] 3.89 10*6/uL 3.80 - 5.2 0 10*6/uL [facility] Work Phone: [phone] WBC (Bld) [#/Vol] 6.8 10*3/uL 3.6 - 10.7 10*3/uL [facility] Work Phone: [phone] [facility] Work Phone: [phone] [facility] Work Phone: [phone] Glucose,Bedsideon 06-30-2021 Glucose [Mass/Vol] 129 mg/dL High 70-100 [facility] Comment on above: Result Comment: Test performed by glucose meter. Results may be 10%-15% lowerthan serum/plasma values. (CLIA ID [id number]) Performed By: #### B GLU ####[address] [place], [place] Glucose [Mass/Vol] 132 mg/dL High 70-100 [facility] Comment on above: Result Comment: Test performed by glucose meter. Results may be 10%-15% lowerthan serum/plasma values. (CLIA ID [id number]) Performed By: #### B GLU ####[address] [place], [place] Glucose [Mass/Vol] 104 mg/dL [facility] [address] [facility] Comment on above: Result Comment: Test performed by glucose meter. Results may be 10%-15% lowerthan serum/plasma values. (CLIA ID [id number]) Performed By: #### B GLU ####[address] [place], [place] Glucose,BedsideOrdered By: Sly Soni on 06-30-2021 Glucose [Mass/Vol] 146 mg/dL [facility] [address] Work Phone: Comment on above: Result Comment: Test performed by glucose meter. Results may be 10%-15% lowerthan serum/plasma values. (CLIA ID [id number]) Performed By: #### B GLU ####[address] [place], [place] Hemogram w/ Autodiffon 06-30 Abs Baso Cnt 0.0 10*3/uL Normal 0.0-0.2 [facility] Comment on above: Performed By: #### B MP3, PHOS3, LFT3, MG3, HEMDF ####[address] [place], [place] #### OSM ####[facility] [address] [facility] [place] [address] Abs Neutrophile Cnt 4.8 10*3/uL Normal 1.8-7.0 [facility] Comment on above: Performed By: #### B MP3, PHOS3, LFT3, MG3, HEMDF ####[address] [place], [place] #### OSM ####[facility] [facility] [place] [address] Basophils/100 WBC (Bld) 0.3 % Normal 0.0-2.0 [facility] Comment on above: Performed By: #### B MP3, PHOS3, LFT3, MG3, HEMDF ####[address] #### OSM ####[facility] [place] [address] Eosinophils (Bld) [#/Vol] 0.3 10*3/uL Normal 0.0-0.5 [facility] Comment on above: Performed By: #### B MP3, PHOS3, LFT3, MG3, HEMDF ####[address] #### OSM ####[facility] [place] [address] Eosinophils/100 WBC (Bld) 5.0 % Normal 1.0-6.0 [facility] Comment on above: Performed By: #### B MP3, PHOS3, LFT3, MG3, HEMDF ####[address] [place], [place] #### OSM ####[facility] [place] [address] Erythrocyte distribution width (RBC) [Ratio] 24.6 % High 11.5-14.5 [facility] Comment on above: Performed By: #### B MP3, PHOS3, LFT3, MG3, HEMDF ####[address] [place], [place] #### OSM ####[facility] [place] [address] Granulocytes/100 WBC (Bld) 70.9 % Normal 40.0-80.0 [facility] Comment on above: Performed By: #### B MP3, PHOS3, LFT3, MG3, HEMDF ####[facility] [employer] [address] [place], [place] #### OSM ####[facility] [place] [address] Hematocrit (Bld) [Volume fraction] 28.8 % Low 35.0-47.0 [facility] Comment on above: Performed By: #### B MP3, PHOS3, LFT3, MG3, HEMDF ####[facility] [employer] [address] #### OSM ####[facility] [employer] [address] [place] [address] Hemoglobin (Bld) [Mass/Vol] 9.3 g/dL Low 11.7-16.0 [facility] Comment on above: Performed By: #### B MP3, PHOS3, LFT3, MG3, HEMDF ####[facility] [employer] [address] #### OSM ####[facility] [employer] [address] [place] [address] Lymphocytes (Bld) [#/Vol] 1.0 10*3/uL Normal 1.0-4.3 [facility] Comment on above: Performed By: #### B MP3, PHOS3, LFT3, MG3, HEMDF ####[facility] [employer] [address] [place], [place] #### OSM ####[facility] [employer] [address] [place] [address] Lymphocytes/100 WBC (Bld) 15.0 % Low 20.0-40.0 [facility] Comment on above: Performed By: #### B MP3, PHOS3, LFT3, MG3, HEMDF ####[facility] [employer] [address] #### OSM ####[facility] [place] [address] MCH (RBC) [Entitic mass] 23.8 pg Low 26.0-34.0 [facility] Comment on above: Performed By: #### B MP3, PHOS3, LFT3, MG3, HEMDF ####[address] [place], [place] #### OSM ####[facility] [place] [address] MCHC 32.1 % Normal 32.0-36.0 [facility] Comment on above: Performed By: #### B MP3, PHOS3, LFT3, MG3, HEMDF ####[address] #### OSM ####[facility] [place] [place] [address] MCV (RBC) [Entitic vol] 74.1 fL Low 79.0-98.0 [facility] Comment on above: Performed By: #### B MP3, PHOS3, LFT3, MG3, HEMDF ####[address] #### OSM ####[facility] [place] [place] [address] Monocytes (Bld) [#/Vol] 0.6 10*3/uL Normal 0.0-0.8 [facility] Comment on above: Performed By: #### B MP3, PHOS3, LFT3, MG3, HEMDF ####[address] #### OSM ####[facility] [place] [address] Monocytes/100 WBC (Bld) 8.8 % Normal 2.0-10.0 [facility] Comment on above: Performed By: #### B MP3, PHOS3, LFT3, MG3, HEMDF ####[address] #### OSM ####[facility] [place] [address] Platelet mean volume (Bld) [Entitic vol] 7.3 fL Low 7.4-10.4 [facility] Comment on above: Performed By: #### B MP3, PHOS3, LFT3, MG3, HEMDF ####[place] [id number] [facility] [place] #### OSM ####[facility] [facility] [place] [address] Platelets (Bld) [#/Vol] 206 10*3/uL Normal 140-440 [facility] Comment on above: Performed By: #### B MP3, PHOS3, LFT3, MG3, HEMDF ####[place] [address] [facility] [place] #### OSM ####[facility] [place] [address] RBC (Bld) [#/Vol] 3.89 10*6/uL Normal 3.80-5.20 [facility] Comment on above: Performed By: #### B MP3, PHOS3, LFT3, MG3, HEMDF ####[place] [address] . [facility] [place] #### OSM ####[facility] [place] [address] WBC (Bld) [#/Vol] 6.8 10*3/uL Normal 3.6-10.7 [facility] Comment on above: Performed By: #### B MP3, PHOS3, LFT3, MG3, HEMDF ####[place] [address] [facility] [place] #### OSM ####[facility] [place] [address] Hepatic Functionon 1 ALP [Catalytic activity/Vol] 83 U/L Normal 38-126 [facility] Comment on above: Performed By: #### B MP3, PHOS3, LFT3, MG3, HEMDF ####[place] [address] [facility] #### OSM ####[facility] [place] [place] [address] ALT [Catalytic activity/Vol] 30 U/L Normal 0-34 [facility] Comment on above: Result Comment: The ALT test is performed by an updated assay method.Please note that the reference intervals have beenchanged and are now sex specific. Performed By: #### B MP3, PHOS3, LFT3, MG3, HEMDF ####[place] [address] [facility] [place] #### OSM ####[facility] [place] [address] AST [Catalytic activity/Vol] 29 U/L Normal 15-46 [facility] Comment on above: Performed By: #### B MP3, PHOS3, LFT3, MG3, HEMDF ####[address] [place], [place] #### OSM ####[facility] [place] [address] Bilirubin [Mass/Vol] 0.4 mg/dL Normal 0.2-1.3 [facility] Comment on above: Performed By: #### B MP3, PHOS3, LFT3, MG3, HEMDF ####[address] [place] #### OSM ####[facility] [place] [address] Bilirubin.indirect [Mass/Vol] 0.0 mg/dL Normal 0.0-0.3 [facility] Comment on above: Performed By: #### B MP3, PHOS3, LFT3, MG3, HEMDF ####[place] [address] [address] [facility] #### OSM ####[facility] [place] [address] Protein [Mass/Vol] 6.1 g/dL Low 6.3-8.2 [facility] Comment on above: Performed By: #### B MP3, PHOS3, LFT3, MG3, HEMDF ####[place] [address] [address] [facility] [place] #### OSM ####[facility] [place] [address] Albumin [Mass/Vol] 2.8 g/dL Low 3.5-5.0 [facility] Comment on above: Performed By: #### B MP3, PHOS3, LFT3, MG3, HEMDF ####[facility] [employer] [address] [place], [place] #### OSM ####[facility] [employer] [address] [place] [address] Hepatic Function PanelOrdere d By: Tello Sterling on 06-30-2021 Albumin [Mass/Vol] 2.8 g/dL Low 3.5 - 5.0 g/dL [facility] Work Phone: [phone] ALP (Bld) [Catalytic activity/Vol] 83 U/L 38 - 126 U/L [facility] Work Phone: [phone] ALT [Catalytic activity/Vol] 30 U/L 0 - 34 U/L [facility] Work Phone: [phone] AST [Catalytic activity/Vol] 29 U/L 15 - 46 U/L [facility] Work Phone: [phone] Bilirubin [Mass/Vol] 0.4 mg/dL 0.2 - 1 .3 mg/dL [facility] Work Phone: [phone] Bilirubin.indirect [Mass/Vol] 0.0 mg/dL 0.0 - 0.3 mg/dL [facility] Work Phone: [phone] Free PSA/Total PSA [Mass fraction] 6.1 g/dL Low 6.3 - 8.2 g/dL [facility] Work Phone: [phone] Magnesiumon 06-30-2021 Magnesium [Mass/Vol] 1.9 mg/dL Normal 1.6-2.[address] [facility] [employer] [facility] Comment on above: Performed By: #### B MP3, PHOS3, LFT3, MG3, HEMDF ####[facility] [employer] [id number] [place], [place] #### OSM ####[facility] [employer] [id number] [place] [address] MagnesiumOrdered By: Michelle lauren on 06-30-2021 Magnesium [Mass/Vol] 1.9 mg/dL 1.6 - 2 .3 mg/dL [facility] Work Phone: [phone] Panel InformationOrdered By: Lindsey Joyce on 06-30-2021 Interpretation and review of laboratory results Abnormal [facility] Work Phone: [phone] [facility] Work Phone: [phone] [facility] Work Phone: [phone] Panel InformationOrdered By: Michelle Petty on 06-30-2021 Interpretation and review of laboratory results Abnormal [facility] Work Phone: [phone] [facility] Work Phone: [phone] [facility] Work Phone: [phone] OsmolalityOrdered By: Lindsey Joyce on 06-30-2021 Serum Osmolality 302 mosm/kg High 280 - 300 mosm/kg [facility] Work Phone: [phone] Osmolality, UrineOrdered By: April Araujo on 06-30-2021 Interpretation and review of laboratory results Abnormal [facility] Work Phone: [phone] Osmolality, Ur 213 mosm/kg Low 300 - 1000 mosm/kg [facility] Work Phone: [phone] [facility] Work Phone: [phone] [facility] Work Phone: [phone] Osmolality,Serumon 1 Osmolality,Serum 302 mosm/kg High 280-300 [facility] Comment on above: Performed By: #### B MP3, PHOS3, LFT3, MG3, HEMDF ####[facility] [id number] [place], [place] #### OSM ####[facility] [address] [place] [place] [address] Osmolality,Urineon 1 Osmolality,Urine 213 mosm/kg Low 300-1000 [facility] Comment on above: Performed By: #### O SMUR ####[facility] [address] [place] [place] [address]#### NAURR ####[facility] [id number] [place] [address] POCT GlucoseOrdered By: Jessica Soni on 06-30-2021 Glucose [Mass/Vol] 129 mg/dL High 70 - 100 mg/dL [facility] Work Phone: [phone] Interpretation and review of laboratory results Abnormal [facility] Work Phone: [phone] [facility] Work Phone: [phone] [facility] Work Phone: [phone] Glucose [Mass/Vol] 132 mg/dL High 70 - 100 mg/dL [facility] Work Phone: [phone] Interpretation and review of laboratory results Abnormal [facility] Work Phone: [phone] [facility] Work Phone: [phone] [facility] Work Phone: [phone] Glucose [Mass/Vol] 104 mg/dL High 70 - 100 mg/dL [facility] Work Phone: [phone] Interpretation and review of laboratory results Abnormal [facility] Work Phone: [phone] [facility] Work Phone: [phone] [facility] Work Phone: [phone] Phosphoruson 06-30-2021 Phosphate [Mass/Vol] 6.5 mg/dL High 2.5-4.5 [facility] Comment on above: Performed By: #### B MP3, PHOS3, LFT3, MG3, HEMDF ####[facility] [address] [place] [address]#### OSM ####[facility] [employer] [address] [place] [address] PhosphorusOrdered By: Michelle pearson on 06-30-2021 Phosphate [Mass/Vol] 6.5 mg/dL High 2.5 - 4 .5 mg/dL [facility] Work Phone: Sodium, Ur Randomon 06-30-20 21 Sodium [Moles/Vol] 31 mmol/L Normal 30-90 [facility] Comment on above: Performed By: #### O SMUR ####[facility] [employer] [address] [place] [address]#### NAURR ####[address] [place] [address] Basic Metabolic Panelon 07-3 Anion gap [Moles/Vol] 7 mmol/L Normal 3-13 [facility] Comment on above: Performed By: #### B MP3 ####[facility] [employer] [id number] [place] [address] Calcium [Mass/Vol] 8.5 mg/dL Normal 8.4-10.4 [facility] Comment on above: Performed By: #### B MP3 ####[facility] [employer] [id number] [place] [address] CO2 [Moles/Vol] 25 mmol/L Normal 22-30 [facility] Comment on above: Performed By: #### B MP3 ####[facility] [employer] [address] [place] [address] Creatinine [Mass/Vol] 2.86 mg/dL High 0.52-1.25 [facility] Comment on above: Performed By: #### B MP3 ####[facility] [employer] [id number] [place] [address] GFR/1.73 sq M.predicted among blacks MDRD (S/P/Bld) [Vol rate/Area] 20.9 mL/min/{1.73_m2} Abnormal >60 [facility] Comment on above: Performed By: #### B MP3 ####[facility] [employer] [id number] [place] [address] GFR/1.73 sq M.predicted among non-blacks MDRD (S/P/Bld) [Vol rate/Area] 18.0 mL/min/{1.73_m2} Abnormal >60 [facility] Comment on above: Result Comment: KDIG O guidelines provide the following GFR categories:Stage GFR(ml/min/1.73 m2) TermsG1 >=90 Normal or highG2 60-89 Mildly decreased*G3a 45-59 Mildly to moderately usjmldyzfR0m 30-44 Moderately to severely decreasedG4 15-29 Severely [...] creatinine secretion. Performed By: #### B MP3 ####[facility] [place], [place] Glucose [Mass/Vol] 115 mg/dL High 70-100 [facility] Comment on above: Performed By: #### B MP3 ####[address] [place], [place] Glucose [Mass/Vol] 114 mg/dL High 70-100 [facility] Comment on above: Performed By: #### B MP3 ####[address] [place], [place] Urea nitrogen [Mass/Vol] 57 mg/dL High 7-20 [facility] Comment on above: Performed By: #### B MP3 ####[address] [place] [place], [place] Urea nitrogen [Mass/Vol] 58 mg/dL High 7-20 [facility] Comment on above: Performed By: #### B MP3 ####[address] [place] [place], [place] Anion gap [Moles/Vol] 7 mmol/L Normal 3-13 [facility] Comment on above: Performed By: #### B MP3 ####[address] [place] [place] CO2 [Moles/Vol] 25 mmol/L Normal 22-30 [facility] Comment on above: Performed By: #### B MP3 ####[address] [place] [place] Creatinine [Mass/Vol] 2.86 mg/dL High 0.52-1.25 [facility] Comment on above: Performed By: #### B MP3 ####[address] [place] [place], [place] GFR/1.73 sq M.predicted among blacks MDRD (S/P/Bld) [Vol rate/Area] 20.9 mL/min/{1.73_m2} Abnormal >60 [facility] Comment on above: Performed By: #### B MP3 ####[address] GFR/1.73 sq M.predicted among non-blacks MDRD (S/P/Bld) [Vol rate/Area] 18.0 mL/min/{1.73_m2} Abnormal >60 [facility] Comment on above: Result Comment: KDIG O guidelines provide the following GFR categories:Stage GFR(ml/min/1.73 m2) TermsG1 >=90 Normal or highG2 60-89 Mildly decreased*G3a 45-59 Mildly to moderately omqtivqqlQ0t 30-44 Moderately to severely decreasedG4 15-29 Severely [...] creatinine secretion. Performed By: #### B MP3 ####[address] Chloride [Moles/Vol] 100 mmol/L Normal 98-107 [facility] Comment on above: Performed By: #### B MP3 ####[address] [place] [place], [place] Potassium [Moles/Vol] 5.0 mmol/L Normal 3.5-5.1 [facility] Comment on above: Performed By: #### B MP3 ####[address] [place] [address] [place], [place] Sodium [Moles/Vol] 132 mmol/L Low 135-145 [facility] Comment on above: Performed By: #### B MP3 ####[address] [address] Chloride [Moles/Vol] 100 mmol/L Normal 98-107 [facility] Comment on above: Performed By: #### B MP3 ####[facility] [place] [address] Potassium [Moles/Vol] 5.0 mmol/L Normal 3.5-5.1 [facility] Comment on above: Performed By: #### B MP3 ####[facility] [place] [address] Sodium [Moles/Vol] 131 mmol/L Low 135-145 [facility] Comment on above: Performed By: #### B MP3 ####[address] [place] [place], [place] Basic Metabolic PanelOrdered By: Silver Nick on 06-29-2021 Anion gap [Moles/Vol] 7 mmol/L 3 - 13 mmol/L [facility] Work Phone: Calcium [Mass/Vol] 8.5 mg/dL 8.4 - 10. 4 mg/dL [facility] Work Phone: Chloride [Moles/Vol] 100 mmol/L 98 - 10 7 mmol/L [facility] Work Phone: CO2 [Moles/Vol] 25 mmol/L 22 - 30 mmol/L [facility] Work Phone: Creatinine [Mass/Vol] 2.86 mg/dL High 0.52 - 1.25 mg/dL [facility] Work Phone: EGFR IF NonAfrican Haitian 18.0 mL/min Abnormal >60 [facility] Work Phone: GFR/1.73 sq M.predicted among blacks MDRD (S/P/Bld) [Vol rate/Area] 20.9 mL/min/{1.73_m2} Abnormal >60 [facility] Work Phone: Glucose [Mass/Vol] 114 mg/dL High 70 - 100 mg/dL [facility] Work Phone: Potassium [Moles/Vol] 5.0 mmol/L 3.5 - 5.1 mmol/L [facility] Work Phone: [phone] Sodium [Moles/Vol] 131 mmol/L Low 135 - 145 mmol/L [facility] Work Phone: [phone] Urea nitrogen (BldV) [Mass/Vol] 58 mg/dL High 7 - 20 mg/dL [facility] Work Phone: [phone] Anion gap [Moles/Vol] 7 mmol/L 3 - 13 mmol/L [facility] Work Phone: [phone] Calcium [Mass/Vol] 8.5 mg/dL 8.4 - 10. 4 mg/dL [facility] Work Phone: [phone] Chloride [Moles/Vol] 100 mmol/L 98 - 10 7 mmol/L [facility] Work Phone: [phone] CO2 [Moles/Vol] 25 mmol/L 22 - 30 mmol/L [facility] Work Phone: [phone] Creatinine [Mass/Vol] 2.86 mg/dL High 0.52 - 1.25 mg/dL [facility] Work Phone: [phone] EGFR IF NonAfrican Haitian 18.0 mL/min Abnormal >60 [facility] Work Phone: [phone] GFR/1.73 sq M.predicted among blacks MDRD (S/P/Bld) [Vol rate/Area] 20.9 mL/min/{1.73_m2} Abnormal >60 [facility] Work Phone: [phone] Glucose [Mass/Vol] 115 mg/dL High 70 - 100 mg/dL [facility] Work Phone: [phone] Interpretation and review of laboratory results Abnormal [facility] Work Phone: [phone] Potassium [Moles/Vol] 5.0 mmol/L 3.5 - 5.1 mmol/L [facility] Work Phone: [phone] Sodium [Moles/Vol] 132 mmol/L Low 135 - 145 mmol/L [facility] Work Phone: [phone] Urea nitrogen (BldV) [Mass/Vol] 57 mg/dL High 7 - 20 mg/dL [facility] Work Phone: [phone] [facility] Work Phone: [phone] [facility] Work Phone: [phone] CBC auto differentialOrdered By: Michelle Petty on 06-29-2021 Hematocrit (Bld) [Volume fraction] 35.1 % 35.0 - 47.0 % [facility] Work Phone: [phone] Hemoglobin.gastrointes tinal spec 1 Ql (Stl) 11.1 g/dL Low 11.7 - 16.0 g/dL [facility] Work Phone: [phone] Interpretation and review of laboratory results Abnormal [facility] Work Phone: MCH (RBC) [Entitic mass] 23.8 pg Low 26.0 - 34.0 pg [facility] Work Phone: MCHC (RBC) [Mass/Vol] 31.5 % Low 32.0 - 36.0 % [facility] Work Phone: MCV (RBC) [Entitic vol] 75.5 fL Low 79.0 - 98.0 fL [facility] Work Phone: Platelet distribution width (Bld) [Ratio] 25.3 % High 11.5 - 14.5 % [facility] Work Phone: Platelet mean volume (Bld) [Entitic vol] 7.5 fL 7.4 - 10.4 fL [facility] Work Phone: Platelets (Bld) [#/Vol] 163 10*3/uL 140 - 440 10*3/uL [facility] Work Phone: RBC (Bld) [#/Vol] 4.65 10*6/uL 3.80 - 5.2 0 10*6/uL [facility] Work Phone: [phone] WBC (Bld) [#/Vol] 4.6 10*3/uL 3.6 - 10.7 10*3/uL [facility] Work Phone: [phone] [facility] Work Phone: [phone] [facility] Work Phone: [phone] Glucose,Bedsideon 06-29-2021 Glucose [Mass/Vol] 141 mg/dL High 70-100 [facility] Comment on above: Result Comment: Test performed by glucose meter. Results may be 10%-15% lowerthan serum/plasma values. (CLIA ID [id number]) Performed By: #### B GLU ####[address] [place], [place] Glucose [Mass/Vol] 185 mg/dL High 70-100 [facility] Comment on above: Result Comment: Test performed by glucose meter. Results may be 10%-15% lowerthan serum/plasma values. (CLIA ID [id number]) Performed By: #### B GLU ####[address] Glucose [Mass/Vol] 146 mg/dL High 70-100 [facility] Comment on above: Result Comment: Test performed by glucose meter. Results may be 10%-15% lowerthan serum/plasma values. (CLIA ID [id number]) Performed By: #### B GLU ####[address] [place], [place] Hemogram w/ Autodiffon 06-29 Erythrocyte distribution width (RBC) [Ratio] 25.3 % High 11.5-14.5 [facility] Comment on above: Performed By: #### P HOS3 HEMROSA BLOOD MDIFF ####[address] [place], [place] Hematocrit (Bld) [Volume fraction] 35.1 % Normal 35.0-47.0 [facility] Comment on above: Performed By: #### P HOS3 HEMROSA BLOOD MDIFF ####[address] Hemoglobin (Bld) [Mass/Vol] 11.1 g/dL Low 11.7-16.0 [facility] Comment on above: Performed By: #### P HOS3 HEMDF MGMD VikkiIFF ####[address] MCH (RBC) [Entitic mass] 23.8 pg Low 26.0-34.0 [facility] Comment on above: Performed By: #### P HOS3 HEMDF, MGTYLER Florez ####[address] [place] MCHC 31.5 % Low 32.0-36.0 [facility] Comment on above: Performed By: #### P HOS3 HEMJEREMI MGTYLER Florez ####[address] [place], [place] MCV (RBC) [Entitic vol] 75.5 fL Low 79.0-98.0 [facility] Comment on above: Performed By: #### P HOS3 HEMJEREMI MGMD VikkiIFF ####[address] [place], [place] Platelet mean volume (Bld) [Entitic vol] 7.5 fL Normal 7.4-10.4 [facility] Comment on above: Performed By: #### P HOS3 HEMJEREMI MGMD VikkiIFF ####[address] Platelets (Bld) [#/Vol] 163 10*3/uL Normal 140-440 [facility] Comment on above: Performed By: #### P HOSVikki HEMROSA BLOOD MDIFF ####[address] [place], [place] RBC (Bld) [#/Vol] 4.65 10*6/uL Normal 3.80-5.20 [facility] Comment on above: Performed By: #### P HOS3 HEMJEREMI MGMD VikkiIFF ####[address] [place], [place] WBC (Bld) [#/Vol] 4.6 10*3/uL Normal 3.6-10.7 [facility] Comment on above: Performed By: #### P HOS3 HEMDF MGMD VikkiIFF ####[address] Magnesiumon 06-29-2021 Magnesium [Mass/Vol] 2.0 mg/dL Normal 1.6-2.3 [facility] Comment on above: Performed By: #### P FERMÍN SILVA MG3, MDIFF ####[address] MagnesiumOrdered By: Michelle lauren on 06-29-2021 Magnesium [Mass/Vol] 2.0 mg/dL 1.6 - 2 .3 mg/dL [facility] Work Phone: Manual Diffon 06-29-2021 Abs Eosin Cnt 0.2 10*3/uL Normal 0.0-0.5 [facility] Comment on above: Performed By: #### P FERMÍN SILVA MG3, MDIFF ####[address] [place], [place] Abs Lymph Cnt 0.4 10*3/uL Low 1.1-4.5 [facility] Comment on above: Performed By: #### P FERMÍN SILVA MG3, MDIFF ####[address] Abs Monocyte Cnt 0.3 10*3/uL Normal 0.2-1.1 [facility] Comment on above: Performed By: #### P FERMÍN SILVA MG3, MDIFF ####[address] [place], [place] Abs Neutrophile Cnt 3.6 10*3/uL Normal 2.2-8.2 [facility] Comment on above: Performed By: #### P HOS3 HEMROSA BLOOD MDIFF ####[address] [place], [place] Anisocytosis Slight Normal [facility] Comment on above: Performed By: #### P FERMÍN SILVA MG3, MDIFF ####[address] Elliptocytes Slight Normal [facility] Comment on above: Performed By: #### P HOS3 HEMROSA BLOOD MDIFF ####[address] [address] Eosinophils 4 % Normal 1-6 [facility] Comment on above: Performed By: #### P HOS3, HEMDF, MG3, MDIFF ####[address] [place], [place] Lymphocytes 9 % Low 20-40 [facility] Comment on above: Performed By: #### P HOS3, HEMDF, MG3, MDIFF ####[address] Metamyelocytes 1 % Abnormal <1 [facility] Comment on above: Performed By: #### P HOS3, HEMDF, MG3, MDIFF ####[address] [place], [place] Microcytosis Slight Normal [facility] Comment on above: Performed By: #### P HOS3, HEMDF, MG3, MDIFF ####[address] [place], [place] Monocytes 7 % Normal 2-10 [facility] Comment on above: Performed By: #### P HOS3, HEMDF, MG3, MDIFF ####[address] [place], [place] Ovalocytes Slight Normal [facility] Comment on above: Performed By: #### P HOS3, HEMDF, MG3, MDIFF ####[address] [place], [place] Poikilocytosis Slight Normal [facility] Comment on above: Performed By: #### P HOS3, HEMDF, MG3, MDIFF ####[address] [place], [place] RBC Morphology ABNORMAL Normal [facility] Comment on above: Performed By: #### P HOS3, HEMDF, MG3, MDIFF ####[address] [place], [place] Seg Neutrophils 79 % Normal 40-80 [facility] Comment on above: Performed By: #### P HOS3, HEMDF, MG3, MDIFF ####[address] [place], [place] Tear Drop Forms Slight Normal [facility] Comment on above: Performed By: #### P HOS3, HEMROSA BLOOD MDIFF ####[facility] [address] [place], [place] Abs Baso Cnt 0.0 10*3/uL Normal 0.0-0.2 [facility] Comment on above: Performed By: #### P HOS3, HEMROSA BLOOD, IFF ####[facility] [address] [place], [place] Bands 0 % Normal 0-3 [facility] Comment on above: Performed By: #### P HOS3FERMÍN MG3, IFF ####[address] Basophils 0 % Normal 0-2 [facility] Comment on above: Performed By: #### P HOS3, ROSA KOVACS MDIFF ####[facility] [employer] [address] Cells counted 100 Normal [facility] Comment on above: Performed By: #### P HOS3FERMÍN MG3, MDIFF ####[address] Manual DifferentialOrdered B y: Michelle Laquita on 06-29-2021 Absolute Baso # 0.0 10*3/uL 0.0 - 0.2 10*3/uL [facility] Work Phone: [phone] Absolute Eos # 0.2 10*3/uL 0.0 - 0.5 10*3/uL [facility] Work Phone: [phone] Absolute Lymph # 0.4 10*3/uL Low 1.1 - 4.5 10*3/uL [facility] Work Phone: [phone] Absolute [place] # 0.3 10*3/uL 0.2 - 1.1 10*3/uL [facility] Work Phone: [phone] Absolute Neut # 3.6 10*3/uL 2.2 - 8.2 10*3/uL [facility] Work Phone: [phone] Anisocytosis Slight [facility] Work Phone: [phone] Bands 0 % 0 - 3 % [facility] Work Phone: [phone] Basophils/100 WBC (Bld) 0 % 0 - 2 % [facility] Work Phone: [phone] Elliptocytes Slight [facility] Work Phone: [phone] Eosinophils/100 WBC (Bld) 4 % 1 - 6 % [facility] Work Phone: [phone] Interpretation and review of laboratory results Abnormal [facility] Work Phone: [phone] Lymphocytes/100 WBC (Bld) 9 % Low 20 - 40 % [facility] Work Phone: [phone] Metamyelocytes 1 % Abnormal <1 [facility] Work Phone: [phone] Microcytosis Slight [facility] Work Phone: [phone] Monocytes/100 WBC (Bld) 7 % 2 - 10 % [facility] Work Phone: [phone] Ovalocytes Slight [facility] Work Phone: [phone] Poikilocytes Slight [facility] Work Phone: [phone] RBC (Bld) [#/Vol] ABNORMAL [facility] Work Phone: [phone] Seg Neutrophils 79 % 40 - 80 % [facility] Work Phone: [phone] Tear Drop Cells Slight [facility] Work Phone: [phone] TOTAL CELLS COUNTED 100 [facility] Work Phone: [phone] [facility] Work Phone: [phone] [facility] Work Phone: [phone] No Panel InformationOrdered By: Michelle Petty on 06-29-2021 Interpretation and review of laboratory results Abnormal [facility] Work Phone: [phone] [facility] Work Phone: [phone] [facility] Work Phone: [phone] POCT GlucoseOrdered By: Jessica Soni on 06-29-2021 Glucose [Mass/Vol] 141 mg/dL High 70 - 100 mg/dL [facility] Work Phone: Interpretation and review of laboratory results Abnormal [facility] Work Phone: [facility] Work Phone: [phone] [facility] Work Phone: [phone] Glucose [Mass/Vol] 146 mg/dL High 70 - 100 mg/dL [facility] Work Phone: [phone] Interpretation and review of laboratory results Abnormal [facility] Work Phone: [phone] [facility] Work Phone: [phone] [facility] Work Phone: [phone] POCT GlucoseOrdered By: Gennaro Parsons on 06-29-2021 Glucose [Mass/Vol] 185 mg/dL High 70 - 100 mg/dL [facility] Work Phone: [phone] Interpretation and review of laboratory results Abnormal [facility] Work Phone: [phone] [facility] Work Phone: [phone] [facility] Work Phone: [phone] Phosphoruson 06-29-2021 Phosphate [Mass/Vol] 6.3 mg/dL High 2.5-4.5 [facility] Comment on above: Performed By: #### P HOS3, HEMDF, MG3, MDIFF ####[facility] [email or web address] [address] PhosphorusOrdered By: Michelle pearson on 06-29-2021 Phosphate [Mass/Vol] 6.3 mg/dL High 2.5 - 4 .5 mg/dL [facility] Work Phone: [phone] SODIUM, URINE, RANDOMOrdered By: April Araujo on 06-29-2021 Sodium (U) [Moles/Vol] 31 mmol/L 30 - 90 mmol/L [facility] Work Phone: [phone] [facility] Work Phone: [phone] [facility] Work Phone: [phone] Basic Metabolic Panelon 06-01 Calcium [Mass/Vol] 8.5 mg/dL Normal 8.4-10.4 [facility] Comment on above: Performed By: #### B MP3 ####[facility] [email or web address] [address] Glucose [Mass/Vol] 118 mg/dL High 70-100 [facility] Comment on above: Performed By: #### B MP3 ####[facility] [employer] [address] [place] [address] Anion gap [Moles/Vol] 9 mmol/L Normal 3-13 [facility] Comment on above: Performed By: #### B MP3 ####[facility] [employer] [address] [place] [address] CO2 [Moles/Vol] 23 mmol/L Normal 22-30 [facility] Comment on above: Performed By: #### B MP3 ####[facility] [employer] [address] [place] [address] Creatinine [Mass/Vol] 3.14 mg/dL High 0.52-1.25 [facility] Comment on above: Performed By: #### B MP3 ####[facility] [employer] [id number] [place] [address] GFR/1.73 sq M.predicted among blacks MDRD (S/P/Bld) [Vol rate/Area] 18.6 mL/min/{1.73_m2} Abnormal >60 [facility] Comment on above: Performed By: #### B MP3 ####[facility] [employer] [address] [place] [address] GFR/1.73 sq M.predicted among non-blacks MDRD (S/P/Bld) [Vol rate/Area] 16.1 mL/min/{1.73_m2} Abnormal >60 [facility] Comment on above: Result Comment: KDIG O guidelines provide the following GFR categories:Stage GFR(ml/min/1.73 m2) TermsG1 >=90 Normal or highG2 60-89 Mildly decreased*G3a 45-59 Mildly to moderately ayorpntdqM0j 30-44 Moderately to severely decreasedG4 15-29 Severely [...] creatinine secretion. Performed By: #### B MP3 ####[facility] [place], [place] Urea nitrogen [Mass/Vol] 56 mg/dL High 7-20 [facility] Comment on above: Performed By: #### B MP3 ####[facility] [place], [place] Chloride [Moles/Vol] 98 mmol/L Normal 98-107 [facility] Comment on above: Performed By: #### B MP3 ####[address] [place], [place] Potassium [Moles/Vol] 4.5 mmol/L Normal 3.5-5.1 [facility] Comment on above: Performed By: #### B MP3 ####[address] [place], [place] Sodium [Moles/Vol] 130 mmol/L Low 135-145 [facility] Comment on above: Performed By: #### B MP3 ####[address] Basic Metabolic PanelOrdered By: Silver Nick on 06-28-2021 Anion gap [Moles/Vol] 9 mmol/L 3 - 13 mmol/L [facility] Work Phone: Calcium [Mass/Vol] 8.5 mg/dL 8.4 - 10. 4 mg/dL [facility] Work Phone: Chloride [Moles/Vol] 98 mmol/L 98 - 10 7 mmol/L [facility] Work Phone: CO2 [Moles/Vol] 23 mmol/L 22 - 30 mmol/L [facility] Work Phone: Creatinine [Mass/Vol] 3.14 mg/dL High 0.52 - 1.25 mg/dL [facility] Work Phone: EGFR IF NonAfrican Haitian 16.1 mL/min Abnormal >60 [facility] Work Phone: [phone] GFR/1.73 sq M.predicted among blacks MDRD (S/P/Bld) [Vol rate/Area] 18.6 mL/min/{1.73_m2} Abnormal >60 [facility] Work Phone: [phone] Glucose [Mass/Vol] 118 mg/dL High 70 - 100 mg/dL [facility] Work Phone: [phone] Interpretation and review of laboratory results Abnormal [facility] Work Phone: [phone] Potassium [Moles/Vol] 4.5 mmol/L 3.5 - 5.1 mmol/L [facility] Work Phone: [phone] Sodium [Moles/Vol] 130 mmol/L Low 135 - 145 mmol/L [facility] Work Phone: [phone] Urea nitrogen (BldV) [Mass/Vol] 56 mg/dL High 7 - 20 mg/dL [facility] Work Phone: [phone] [facility] Work Phone: [phone] [facility] Work Phone: [phone] CBC auto differentialOrdered By: Michelle Petty on 06-28-2021 Hematocrit (Bld) [Volume fraction] 28.6 % Low 35.0 - 47.0 % [facility] Work Phone: [phone] Hemoglobin.gastrointes tinal spec 1 Ql (Stl) 9.2 g/dL Low 11.7 - 16.0 g/dL [facility] Work Phone: [phone] Interpretation and review of laboratory results Abnormal [facility] Work Phone: [phone] MCH (RBC) [Entitic mass] 23.8 pg Low 26.0 - 34.0 pg [facility] Work Phone: [phone] MCHC (RBC) [Mass/Vol] 32.1 % 32.0 - 36.0 % [facility] Work Phone: [phone] MCV (RBC) [Entitic vol] 74.2 fL Low 79.0 - 98.0 fL [facility] Work Phone: [phone] Platelet distribution width (Bld) [Ratio] 24.7 % High 11.5 - 14.5 % [facility] Work Phone: [phone] Platelet mean volume (Bld) [Entitic vol] 8.0 fL 7.4 - 10.4 fL [facility] Work Phone: [phone] Platelets (Bld) [#/Vol] 184 10*3/uL 140 - 440 10*3/uL [facility] Work Phone: [phone] RBC (Bld) [#/Vol] 3.86 10*6/uL 3.80 - 5.2 0 10*6/uL [facility] Work Phone: [phone] WBC (Bld) [#/Vol] 5.7 10*3/uL 3.6 - 10.7 10*3/uL [facility] Work Phone: [phone] [facility] Work Phone: [phone] [facility] Work Phone: [phone] CORTISOL TOTALOrdered By: Fr foreign Martínezti on 06-28-2021 Cortisol 10.0 ug/dL [facility] Work Phone: [phone] [facility] Work Phone: [phone] [facility] Work Phone: [phone] Cortisolon 06-28-2021 Cortisol 10.0 ug/dL Normal [facility] Comment on above: Result Comment: Befo re 10am 4.5-22.7 ug/dLAfter 5pm 1.7-14.1 ug/dL Performed By: #### C ORTL ####[address] [place] [address] Glucose,Bedsideon 06-28-2021 Glucose [Mass/Vol] 171 mg/dL High 70-100 [facility] Comment on above: Result Comment: Test performed by glucose meter. Results may be 10%-15% lowerthan serum/plasma values. (CLIA ID [id number]) Performed By: #### B GLU ####[address] [place] [address] Glucose [Mass/Vol] 165 mg/dL High 70-100 [facility] Comment on above: Result Comment: Test performed by glucose meter. Results may be 10%-15% lowerthan serum/plasma values. (CLIA ID [id number]) Performed By: #### B GLU ####[address] [place], [place] Glucose [Mass/Vol] 161 mg/dL High 70-100 [facility] Comment on above: Result Comment: Test performed by glucose meter. Results may be 10%-15% lowerthan serum/plasma values. (CLIA ID [id number]) Performed By: #### B GLU ####[address] [place], [place] Glucose [Mass/Vol] 129 mg/dL High 70-100 [facility] Comment on above: Result Comment: Test performed by glucose meter. Results may be 10%-15% lowerthan serum/plasma values. (CLIA ID [id number]) Performed By: #### B GLU ####[address] [place], [place] Hemogram w/ Autodiffon 06-28 Erythrocyte distribution width (RBC) [Ratio] 24.7 % High 11.5-14.5 [facility] Comment on above: Performed By: #### V TYLER CHEN, HEMDF, PHOS3, LFT3, MG3 ####[address] [place], [place] Hematocrit (Bld) [Volume fraction] 28.6 % Low 35.0-47.0 [facility] Comment on above: Performed By: #### V TYLER CHEN, HEMDF, PHOS3, LFT3, MG3 ####[address] [place], [place] Hemoglobin (Bld) [Mass/Vol] 9.2 g/dL Low 11.7-16.0 [facility] Comment on above: Performed By: #### V TYLER CHEN, HEMDF, PHOS3, LFT3, MG3 ####[address] [place], [place] MCH (RBC) [Entitic mass] 23.8 pg Low 26.0-34.0 [facility] Comment on above: Performed By: #### V ANL, MDIFF, HEMDF, PHOS3, LFT3, MG3 ####[address] [place], [place] MCHC 32.1 % Normal 32.0-36.0 [facility] Comment on above: Performed By: #### V ANL, MDIFF, HEMDF, PHOS3, LFT3, MG3 ####[address] [place], [place] MCV (RBC) [Entitic vol] 74.2 fL Low 79.0-98.0 [facility] Comment on above: Performed By: #### V ANL, MDIFF, HEMDF, PHOS3, LFT3, MG3 ####[address] [place], [place] Platelet mean volume (Bld) [Entitic vol] 8.0 fL Normal 7.4-10.4 [facility] Comment on above: Performed By: #### V ANL, MDIFF, HEMDF, PHOS3, LFT3, MG3 ####[address] [place], [place] Platelets (Bld) [#/Vol] 184 10*3/uL Normal 140-440 [facility] Comment on above: Performed By: #### V ANL, MDIFF, HEMDF, PHOS3, LFT3, MG3 ####[address] [place], [place] RBC (Bld) [#/Vol] 3.86 10*6/uL Normal 3.80-5.20 [facility] Comment on above: Performed By: #### V ANL, MDIFF, HEMDF, PHOS3, LFT3, MG3 ####[address] WBC (Bld) [#/Vol] 5.7 10*3/uL Normal 3.6-10.7 [facility] Comment on above: Performed By: #### V ANL, MDIFF, HEMDF, PHOS3, LFT3, MG3 ####[address] Hepatic Functionon 1 ALP [Catalytic activity/Vol] 91 U/L Normal 38-126 [facility] Comment on above: Performed By: #### V ANL, MDIFF, HEMDF, PHOS3, LFT3, MG3 ####[address] [place], [place] ALT [Catalytic activity/Vol] 35 U/L High 0-34 [facility] Comment on above: Result Comment: The ALT test is performed by an updated assay method.Please note that the reference intervals have beenchanged and are now sex specific. Performed By: #### V ANL, MDIFF, HEMDF, PHOS3, LFT3, MG3 ####[address] [place], [place] AST [Catalytic activity/Vol] 32 U/L Normal 15-46 [facility] Comment on above: Performed By: #### V ANL, MDIFF, HEMDF, PHOS3, LFT3, MG3 ####[address] [place], [place] Bilirubin [Mass/Vol] 0.4 mg/dL Normal 0.2-1.3 [facility] Comment on above: Performed By: #### V ANL, MDIFF, HEMDF, PHOS3, LFT3, MG3 ####[address] [place], [place] Bilirubin.indirect [Mass/Vol] 0.0 mg/dL Normal 0.0-0.3 [facility] Comment on above: Performed By: #### V ANL, MDIFF, HEMDF, PHOS3, LFT3, MG3 ####[address] [place], [place] Protein [Mass/Vol] 6.0 g/dL Low 6.3-8.2 [facility] Comment on above: Performed By: #### V ANL, MDIFF, HEMDF, PHOS3, LFT3, MG3 ####[address] [place], [place] Albumin [Mass/Vol] 2.7 g/dL Low 3.5-5.0 [facility] Comment on above: Performed By: #### TYLER MONZON, HEMDF, PHOS3, LFT3, MG3 ####[address] [place] [address] Hepatic Function PanelOrdere d By: Tello Sterling on 06-28-2021 Albumin [Mass/Vol] 2.7 g/dL Low 3.5 - 5.0 g/dL [facility] Work Phone: ALP (Bld) [Catalytic activity/Vol] 91 U/L 38 - 126 U/L [facility] Work Phone: ALT [Catalytic activity/Vol] 35 U/L High 0 - 34 U/L [facility] Work Phone: AST [Catalytic activity/Vol] 32 U/L 15 - 46 U/L [facility] Work Phone: Bilirubin [Mass/Vol] 0.4 mg/dL 0.2 - 1 .3 mg/dL [facility] Work Phone: Bilirubin.indirect [Mass/Vol] 0.0 mg/dL 0.0 - 0.3 mg/dL [facility] Work Phone: Free PSA/Total PSA [Mass fraction] 6.0 g/dL Low 6.3 - 8.2 g/dL [facility] Work Phone: Magnesiumon 06-28-2021 Magnesium [Mass/Vol] 2.0 mg/dL Normal 1.6-2.3 [facility] Comment on above: Performed By: #### TYLER MONZON, HEMDF, PHOS3, LFT3, MG3 ####[address] [place] [address] MagnesiumOrdered By: Michelle lauren on 06-28-2021 Magnesium [Mass/Vol] 2.0 mg/dL 1.6 - 2 .3 mg/dL [facility] Work Phone: Manual Diffon 06-28-2021 Abs Eosin Cnt 0.2 10*3/uL Normal 0.0-0.5 [facility] Comment on above: Performed By: #### V ANL, MDIFF, HEMDF, PHOS3, LFT3, MG3 ####[address] [place], [place] Abs Lymph Cnt 0.4 10*3/uL Low 1.1-4.5 [facility] Comment on above: Performed By: #### V ANL, MDIFF, HEMDF, PHOS3, LFT3, MG3 ####[address] [place], [place] Abs Monocyte Cnt 0.2 10*3/uL Normal 0.2-1.1 [facility] Comment on above: Performed By: #### V ANL, MDIFF, HEMDF, PHOS3, LFT3, MG3 ####[address] Abs Neutrophile Cnt 4.6 10*3/uL Normal 2.2-8.2 [facility] Comment on above: Performed By: #### V ANL, MDIFF, HEMDF, PHOS3, LFT3, MG3 ####[address] Anisocytosis Slight Normal [facility] Comment on above: Performed By: #### V ANL, MDIFF, HEMDF, PHOS3, LFT3, MG3 ####[address] Bands 8 % High 0-3 [facility] Comment on above: Performed By: #### V ANL, MDIFF, HEMDF, PHOS3, LFT3, MG3 ####[address] [place], [place] Janette Cells Slight Normal [facility] Comment on above: Performed By: #### V ANL, MDIFF, HEMDF, PHOS3, LFT3, MG3 ####[address] [place], [place] Elliptocytes Slight Normal [facility] Comment on above: Performed By: #### V ANL, MDIFF, HEMDF, PHOS3, LFT3, MG3 ####[facility] [address] [place] [address] Eosinophils 4 % Normal 1-[address] [facility] Comment on above: Performed By: #### V DWIGHTL, MDIFF, HEMDF, PHOS3, LFT3, MG3 ####[facility] [address] [place] [address] Lymphocytes 7 % Low 20-[address] [facility] Comment on above: Performed By: #### V ANL, MDIFF, HEMDF, PHOS3, LFT3, MG3 ####[facility] [address] [place] [address] Metamyelocytes 3 % Abnormal <1 [facility] Comment on above: Performed By: #### V ANL, MDIFF, HEMDF, PHOS3, LFT3, MG3 ####[facility] [address] [place], [place] Microcytosis Slight Normal [facility] Comment on above: Performed By: #### V GUSTAVO, MDIFF, HEMDF, PHOS3, LFT3, MG3 ####[facility] [address] [place] [address] Monocytes 4 % Normal 2-[address] [facility] Comment on above: Performed By: #### V GUSTAVO, MDIFF, HEMDF, PHOS3, LFT3, MG3 ####[facility] [address] [place] [address] Myelocytes 1 % Abnormal <1 [facility] Comment on above: Performed By: #### V GUSTAVO, MDIFF, HEMDF, PHOS3, LFT3, MG3 ####[facility] [address] [place] [address] Ovalocytes Slight Normal [facility] Comment on above: Performed By: #### V ANL, MDIFF, HEMDF, PHOS3, LFT3, MG3 ####[facility] [address] [place] [address] Poikilocytosis Slight Normal [facility] Comment on above: Performed By: #### V ANL, MDIFF, HEMDF, PHOS3, LFT3, MG3 ####[facility] [address] [place], [place] RBC Morphology ABNORMAL Normal [facility] Comment on above: Performed By: #### V ANL, MDIFF, HEMDF, PHOS3, LFT3, MG3 ####[facility] [address] [place], [place] Seg Neutrophils 73 % Normal 40-80 [facility] Comment on above: Performed By: #### V ANL, MDIFF, HEMDF, PHOS3, LFT3, MG3 ####[facility] [address] [place], [place] Abs Baso Cnt 0.0 10*3/uL Normal 0.0-0.2 [facility] Comment on above: Performed By: #### V ANL, MDIFF, HEMDF, PHOS3, LFT3, MG3 ####[address] [place], [place] Basophils 0 % Normal 0-2 [facility] Comment on above: Performed By: #### V ANL, MDIFF, HEMDF, PHOS3, LFT3, MG3 ####[facility] [employer] [id number] [place], [place] Cells counted 100 Normal [facility] Comment on above: Performed By: #### V ANL, MDIFF, HEMDF, PHOS3, LFT3, MG3 ####[address] [place], [place] Manual DifferentialOrdered B y: Michelle Petty on 06-28-2021 Absolute Baso # 0.0 10*3/uL 0.0 - 0.2 10*3/uL [facility] Work Phone: Absolute Eos # 0.2 10*3/uL 0.0 - 0.5 10*3/uL [facility] Work Phone: Absolute Lymph # 0.4 10*3/uL Low 1.1 - 4.5 10*3/uL [facility] Work Phone: Absolute [place] # 0.2 10*3/uL 0.2 - 1.1 10*3/uL [facility] Work Phone: [phone] Absolute Neut # 4.6 10*3/uL 2.2 - 8.2 10*3/uL [facility] Work Phone: [phone] Anisocytosis Slight [facility] Work Phone: [phone] Bands 8 % High 0 - 3 % [facility] Work Phone: [phone] Basophils/100 WBC (Bld) 0 % 0 - 2 % [facility] Work Phone: [phone] [place] Cells Slight [facility] Work Phone: [phone] Elliptocytes Slight [facility] Work Phone: [phone] Eosinophils/100 WBC (Bld) 4 % 1 - 6 % [facility] Work Phone: [phone] Interpretation and review of laboratory results Abnormal [facility] Work Phone: [phone] Lymphocytes/100 WBC (Bld) 7 % Low 20 - 40 % [facility] Work Phone: [phone] Metamyelocytes 3 % Abnormal <1 [facility] Work Phone: [phone] Microcytosis Slight [facility] Work Phone: [phone] Monocytes/100 WBC (Bld) 4 % 2 - 10 % [facility] Work Phone: [phone] Myelocytes 1 % Abnormal <1 [facility] Work Phone: [phone] Ovalocytes Slight [facility] Work Phone: [phone] Poikilocytes Slight [facility] Work Phone: [phone] RBC (Bld) [#/Vol] ABNORMAL [facility] Work Phone: [phone] Seg Neutrophils 73 % 40 - 80 % [facility] Work Phone: [phone] TOTAL CELLS COUNTED 100 [facility] Work Phone: [phone] [facility] Work Phone: [phone] [facility] Work Phone: [phone] No Panel InformationOrdered By: Michelle Petty on 06-28-2021 Interpretation and review of laboratory results Abnormal [facility] Work Phone: [phone] [facility] Work Phone: [phone] [facility] Work Phone: OsmolalityOrdered By: April Araujo on 06-28-2021 Serum Osmolality 293 mosm/kg 280 - 300 mosm/kg [facility] Work Phone: [phone] [facility] Work Phone: [phone] [facility] Work Phone: [phone] Osmolality,Serumon Osmolality,Serum 293 mosm/kg Normal 280-300 [facility] Comment on above: Performed By: #### O ####[facility] [address] [place] [address] POCT GlucoseOrdered By: Jessica Soni on 06-28-2021 Glucose [Mass/Vol] 171 mg/dL High 70 - 100 mg/dL [facility] Work Phone: [phone] Interpretation and review of laboratory results Abnormal [facility] Work Phone: [phone] [facility] Work Phone: [phone] [facility] Work Phone: [phone] Glucose [Mass/Vol] 161 mg/dL High 70 - 100 mg/dL [facility] Work Phone: [phone] Interpretation and review of laboratory results Abnormal [facility] Work Phone: [phone] [facility] Work Phone: [phone] [facility] Work Phone: [phone] Glucose [Mass/Vol] 129 mg/dL High 70 - 100 mg/dL [facility] Work Phone: [phone] Interpretation and review of laboratory results Abnormal [facility] Work Phone: [phone] [facility] Work Phone: [phone] [facility] Work Phone: [phone] POCT GlucoseOrdered By: Gennaro Parsons on 06-28-2021 Glucose [Mass/Vol] 165 mg/dL High 70 - 100 mg/dL [facility] Work Phone: [phone] Interpretation and review of laboratory results Abnormal [facility] Work Phone: [phone] [facility] Work Phone: [phone] [facility] Work Phone: Phosphoruson 06-28-2021 Phosphate [Mass/Vol] 5.7 mg/dL High 2.5-4.5 [facility] Comment on above: Performed By: #### V TYLER CHEN, HEMDF, PHOS3, LFT3, MG3 ####[facility] [employer] [id number] [place], [place] PhosphorusOrdered By: Michelle pearson on 06-28-2021 Phosphate [Mass/Vol] 5.7 mg/dL High 2.5 - 4 .5 mg/dL [facility] Work Phone: Vancomycinon 06-28-2021 Vancomycin 42.5 ug/mL High 15.0-20.0 [facility] Comment on above: Result Comment: . Performed By: #### V TYLER CHEN, HEMDF, PHOS3, LFT3, MG3 ####[address] [place], [place] Vancomycin, RandomOrdered By : Tawanna Sifuentes [...] April Sterling on 06-27-2021 Add On Rejected [facility] Work Phone: Add on test from HISon 06-27 Add on test from HIS Accepted Normal [facility] Comment on above: Result Comment: Spec imen available & acceptable for analysis. Performed By: #### A DDON ####[address] [place], [place] Add on test from HIS Rejected Normal [facility] Comment on above: Result Comment: No s pecimen available for addon. Performed By: #### A DDON ####[address] [place] [address] Basic Metabolic Panelon 07-2 Anion gap [Moles/Vol] 7 mmol/L Normal 3-13 [facility] Comment on above: Performed By: #### V ANL, BMP3 ####[facility] [place] [address] Calcium [Mass/Vol] 8.5 mg/dL Normal 8.4-10.4 [facility] Comment on above: Performed By: #### V ANL, BMP3 ####[address] [place] [address] CO2 [Moles/Vol] 25 mmol/L Normal 22-30 [facility] Comment on above: Performed By: #### V ANL, BMP3 ####[address] [place] [address] Glucose [Mass/Vol] 131 mg/dL High 70-100 [facility] Comment on above: Performed By: #### V ANL, BMP3 ####[address] [place] [address] Urea nitrogen [Mass/Vol] 52 mg/dL High 7-20 [facility] Comment on above: Performed By: #### V ANL, BMP3 ####[address] [place] [address] Creatinine [Mass/Vol] 3.08 mg/dL High 0.52-1.25 [facility] Comment on above: Performed By: #### V ANL, BMP3 ####[address] [place] [address] GFR/1.73 sq M.predicted among blacks MDRD (S/P/Bld) [Vol rate/Area] 19.1 mL/min/{1.73_m2} Abnormal >60 [facility] Comment on above: Performed By: #### V ANL, BMP3 ####[address] [place] [address] GFR/1.73 sq M.predicted among non-blacks MDRD (S/P/Bld) [Vol rate/Area] 16.5 mL/min/{1.73_m2} Abnormal >60 [facility] Comment on above: Result Comment: KDIG O guidelines provide the following GFR categories:Stage GFR(ml/min/1.73 m2) TermsG1 >=90 Normal or highG2 60-89 Mildly decreased*G3a 45-59 Mildly to moderately gbzsgmunwP5t 30-44 Moderately to severely decreasedG4 15-29 Severely [...] secretion. Performed By: #### [place] CHEN BMP3 ####[address] [place], [place] Potassium [Moles/Vol] 4.4 mmol/L Normal 3.5-5.1 [facility] Comment on above: Performed By: #### [place] CHEN BMP3 ####[address] [place], [place] Chloride [Moles/Vol] 94 mmol/L Low 98-107 [facility] Comment on above: Performed By: #### V GUSTAVO BMP3 ####[address] [place], [place] Sodium [Moles/Vol] 126 mmol/L Low 135-145 [facility] Comment on above: Performed By: #### V DWIGHTL BMP3 ####[address] [place], [place] Calcium [Mass/Vol] 8.3 mg/dL Low 8.4-10.4 [facility] Comment on above: Performed By: #### B MP3 ####[address], [place] Glucose [Mass/Vol] 122 mg/dL High 70-100 [facility] Comment on above: Performed By: #### B MP3 ####[address] [place], [place] Urea nitrogen [Mass/Vol] 50 mg/dL High 7-20 [facility] Comment on above: Performed By: #### B MP3 ####[address] [place], [place] Anion gap [Moles/Vol] 9 mmol/L Normal 3-13 [facility] Comment on above: Performed By: #### B MP3 ####[address] [place], [place] CO2 [Moles/Vol] 21 mmol/L Low 22-30 [facility] Comment on above: Performed By: #### B MP3 ####[address] [place], [place] Creatinine [Mass/Vol] 3.03 mg/dL High 0.52-1.25 [facility] Comment on above: Performed By: #### B MP3 ####[address] [place], [place] GFR/1.73 sq M.predicted among blacks MDRD (S/P/Bld) [Vol rate/Area] 19.4 mL/min/{1.73_m2} Abnormal >60 [facility] Comment on above: Performed By: #### B MP3 ####[address] . [place], [place] GFR/1.73 sq M.predicted among non-blacks MDRD (S/P/Bld) [Vol rate/Area] 16.8 mL/min/{1.73_m2} Abnormal >60 [facility] Comment on above: Result Comment: [employer] guidelines provide the following GFR categories:Stage GFR(ml/min/1.73 m2) TermsG1 >=90 Normal or highG2 60-89 Mildly decreased*G3a 45-59 Mildly to moderately deottlqdnF1i 30-44 Moderately to severely decreasedG4 15-29 Severely [...] creatinine secretion. Performed By: #### B MP3 ####[address] [place] Calcium [Mass/Vol] 8.2 mg/dL Low 8.4-10.4 [facility] Comment on above: Performed By: #### C HUNG BMP3 ####[address] [place] Anion gap [Moles/Vol] 7 mmol/L Normal 3-13 [facility] Comment on above: Performed By: #### C ORJULY BMP3 ####[facility] [employer] [place] [address] [address] [place] CO2 [Moles/Vol] 23 mmol/L Normal 22-30 [facility] Comment on above: Performed By: #### Jennifer ORJULY, BMP3 ####[facility] [employer] [id number] [place] Creatinine [Mass/Vol] 3.20 mg/dL High 0.52-1.25 [facility] Comment on above: Performed By: #### C ORJULY BMP3 ####[address] [place] GFR/1.73 sq M.predicted among blacks MDRD (S/P/Bld) [Vol rate/Area] 18.2 mL/min/{1.73_m2} Abnormal >60 [facility] Comment on above: Performed By: #### Jennifer ORJULY, BMP3 ####[place] [address] [place] [address] GFR/1.73 sq M.predicted among non-blacks MDRD (S/P/Bld) [Vol rate/Area] 15.7 mL/min/{1.73_m2} Abnormal >60 [facility] Comment on above: Result Comment: KDIG O guidelines provide the following GFR categories:Stage GFR(ml/min/1.73 m2) TermsG1 >=90 Normal or highG2 60-89 Mildly decreased*G3a 45-59 Mildly to moderately fkftnywimZ6l 30-44 Moderately to severely decreasedG4 15-29 Severely [...] secretion. Performed By: #### C HUNG BMP3 ####[address] [place], [place] Glucose [Mass/Vol] 124 mg/dL High 70-100 [facility] Comment on above: Performed By: #### Jennifer PERSAUD BMP3 ####[address] [place], [place] Urea nitrogen [Mass/Vol] 49 mg/dL High 7-20 [facility] Comment on above: Performed By: #### C HUNG BMP3 ####[address] [place], [place] Chloride [Moles/Vol] 96 mmol/L Low 98-107 [facility] Comment on above: Performed By: #### B MP3 ####[address] [place], [place] Potassium [Moles/Vol] 4.6 mmol/L Normal 3.5-5.1 [facility] Comment on above: Performed By: #### B MP3 ####[address] [place], [place] Sodium [Moles/Vol] 126 mmol/L Low 135-145 [facility] Comment on above: Performed By: #### B MP3 ####[facility] [address] [place], [place] Chloride [Moles/Vol] 96 mmol/L Low 98-107 [facility] Comment on above: Performed By: #### C HUNG, BMP3 ####[facility] [address] [place], [place] Potassium [Moles/Vol] 4.5 mmol/L Normal 3.5-5.1 [facility] Comment on above: Performed By: #### C HUNG BMP3 ####[facility] [place], [place] Sodium [Moles/Vol] 126 mmol/L Low 135-145 [facility] Comment on above: Performed By: #### Jennifer PERSAUD, BMP3 ####[facility] [place], [place] Basic Metabolic PanelOrdered By: Silver Nick on 06-27-2021 Anion gap [Moles/Vol] 7 mmol/L 3 - 13 mmol/L [employer] Work Phone: Calcium [Mass/Vol] 8.5 mg/dL 8.4 - 10. 4 mg/dL [employer] Work Phone: Chloride [Moles/Vol] 94 mmol/L Low 98 - 10 7 mmol/L [facility] Work Phone: CO2 [Moles/Vol] 25 mmol/L 22 - 30 mmol/L [facility] Work Phone: Creatinine [Mass/Vol] 3.08 mg/dL High 0.52 - 1.25 mg/dL [facility] Work Phone: EGFR IF NonAfrican Haitian 16.5 mL/min Abnormal >60 [facility] Work Phone: GFR/1.73 sq M.predicted among blacks MDRD (S/P/Bld) [Vol rate/Area] 19.1 mL/min/{1.73_m2} Abnormal >60 [facility] Work Phone: [phone] Glucose [Mass/Vol] 131 mg/dL High 70 - 100 mg/dL [facility] Work Phone: [phone] Interpretation and review of laboratory results Abnormal [facility] Work Phone: [phone] Potassium [Moles/Vol] 4.4 mmol/L 3.5 - 5.1 mmol/L [facility] Work Phone: [phone] Sodium [Moles/Vol] 126 mmol/L Low 135 - 145 mmol/L [facility] Work Phone: [phone] Urea nitrogen (BldV) [Mass/Vol] 52 mg/dL High 7 - 20 mg/dL [facility] Work Phone: [phone] [facility] Work Phone: [phone] [employer] Work Phone: [phone] Basic Metabolic PanelOrdered By: Shashank Sellers on 06-27-2021 Anion gap [Moles/Vol] 9 mmol/L 3 - 13 mmol/L [facility] Work Phone: [phone] Anion gap [Moles/Vol] 7 mmol/L 3 - 13 mmol/L [facility] Work Phone: [phone] Calcium [Mass/Vol] 8.3 mg/dL Low 8.4 - 10. 4 mg/dL [facility] Work Phone: [phone] Calcium [Mass/Vol] 8.2 mg/dL Low 8.4 - 10. 4 mg/dL [facility] Work Phone: [phone] CO2 [Moles/Vol] 21 mmol/L Low 22 - 30 mmol/L [facility] Work Phone: [phone] CO2 [Moles/Vol] 23 mmol/L 22 - 30 mmol/L [facility] Work Phone: [phone] Creatinine [Mass/Vol] 3.03 mg/dL High 0.52 - 1.25 mg/dL [facility] Work Phone: [phone] Creatinine [Mass/Vol] 3.2 mg/dL High 0.52 - 1.25 mg/dL [facility] Work Phone: [phone] EGFR IF NonAfrican Haitian 16.8 mL/min Abnormal >60 [facility] Work Phone: EGFR IF NonAfrican Haitian 15.7 mL/min Abnormal >60 [facility] Work Phone: [...] 7 - 20 mg/dL [facility] Work Phone: [phone] CBC auto differentialOrdered By: Michelle Petty on 06-27-2021 Absolute Baso # 0.0 10*3/uL 0.0 - 0.2 10*3/uL [facility] Work Phone: [phone] Absolute Eos # 0.4 10*3/uL 0.0 - 0.5 10*3/uL [facility] Work Phone: [phone] Absolute Lymph # 0.7 10*3/uL Low 1.0 - 4.3 10*3/uL [facility] Work Phone: [phone] Absolute [place] # 0.7 10*3/uL 0.0 - 0.8 10*3/uL [facility] Work Phone: [phone] Absolute Neut # 4.3 10*3/uL 1.8 - 7.0 10*3/uL [employer] Work Phone: [phone] Basophils/100 WBC (Bld) 0.7 % 0.0 - 2.0 % [employer] Work Phone: [phone] Eosinophils/100 WBC (Bld) 6.6 % High 1.0 - 6.0 % [employer] Work Phone: [phone] Granulocytes/100 WBC (Bld) 69.9 % 40.0 - 80.0 % [employer] Work Phone: [phone] Hematocrit (Bld) [Volume fraction] 28.3 % Low 35.0 - 47.0 % [employer] Work Phone: [phone] Hemoglobin.gastrointes tinal spec 1 Ql (Stl) 9.1 g/dL Low 11.7 - 16.0 g/dL [facility] Work Phone: Interpretation and review of laboratory results Abnormal [facility] Work Phone: Lymphocytes/100 WBC (Bld) 11.2 % Low 20.0 - 40.0 % [employer] Work Phone: [phone] MCH (RBC) [Entitic mass] 24.2 pg Low 26.0 - 34.0 pg [employer] Work Phone: [phone] MCHC (RBC) [Mass/Vol] 32.2 % 32.0 - 36.0 % [employer] Work Phone: MCV (RBC) [Entitic vol] 75.2 fL Low 79.0 - 98.0 fL [employer] Work Phone: [phone] Monocytes/100 WBC (Bld) 11.6 % High 2.0 - 10.0 % [employer] Work Phone: [phone] Platelet distribution width (Bld) [Ratio] 24.1 % High 11.5 - 14.5 % [employer] Work Phone: [phone] Platelet mean volume (Bld) [Entitic vol] 8.1 fL 7.4 - 10.4 fL [employer] Work Phone: Platelets (Bld) [#/Vol] 168 10*3/uL 140 - 440 10*3/uL [facility] Work Phone: [phone] RBC (Bld) [#/Vol] 3.76 10*6/uL Low 3.80 - 5.2 0 10*6/uL [facility] Work Phone: [phone] WBC (Bld) [#/Vol] 6.1 10*3/uL 3.6 - 10.7 10*3/uL [facility] Work Phone: [phone] [facility] Work Phone: [phone] [employer] Work Phone: [phone] CORTISOL TOTALOrdered By: Devan Sterling on 06-27-2021 Cortisol 5.9 ug/dL [facility] Work Phone: [phone] [employer] Work Phone: [phone] [employer] Work Phone: [phone] CR Chest Portableon 06-27-20 21 CR Chest Portable Normal [facility] Cortisolon 06-27-2021 Cortisol 5.9 ug/dL Normal [facility] Comment on above: Result Comment: Befo re 10am 4.5-22.7 ug/dLAfter 5pm 1.7-14.1 ug/dL Performed By: #### C ORTL, BMP3 ####[address] [place] [address] EKG 12 LeadOrdered By: Kathy Sterling on 06-27-2021 [facility] Work Phone: [phone] [facility] Work Phone: [phone] [facility] Work Phone: [phone] Glucose,Bedsideon 06-27-2021 Glucose [Mass/Vol] 174 mg/dL High 70-100 [facility] Comment on above: Result Comment: Test performed by glucose meter. Results may be 10%-15% lowerthan serum/plasma values. (CLIA ID [id number]) Performed By: #### B GLU ####[facility] [id number] [place] [address] Glucose [Mass/Vol] 145 mg/dL High 70-100 [facility] Comment on above: Result Comment: Test performed by glucose meter. Results may be 10%-15% lowerthan serum/plasma values. (CLIA ID [id number]) Performed By: #### B GLU ####[address] Glucose [Mass/Vol] 114 mg/dL High 70-100 [facility] Comment on above: Result Comment: Test performed by glucose meter. Results may be 10%-15% lowerthan serum/plasma values. (CLIA ID [id number]) Performed By: #### B GLU ####[address] Hemogram w/ Autodiffon 06-27 Abs Baso Cnt 0.0 10*3/uL Normal 0.0-0.2 [facility] Comment on above: Performed By: #### P HOS3, OSM, MG3, HEMDF ####[address] Abs Neutrophile Cnt 4.3 10*3/uL Normal 1.8-7.0 [facility] Comment on above: Performed By: #### P HOS3, OSM, MG3, HEMDF ####[address] Basophils/100 WBC (Bld) 0.7 % Normal 0.0-2.0 [facility] Comment on above: Performed By: #### P HOS3, OSM, MG3, HEMDF ####[address] Eosinophils (Bld) [#/Vol] 0.4 10*3/uL Normal 0.0-0.5 [facility] Comment on above: Performed By: #### P HOS3, OSM, MG3, HEMDF ####[address] Eosinophils/100 WBC (Bld) 6.6 % High 1.0-6.0 [facility] Comment on above: Performed By: #### P HOS3, OSM, MG3, HEMDF ####[address] Erythrocyte distribution width (RBC) [Ratio] 24.1 % High 11.5-14.5 [facility] Comment on above: Performed By: #### P HOS3, OSM, MG3, HEMDF ####[address] Granulocytes/100 WBC (Bld) 69.9 % Normal 40.0-80.0 [facility] Comment on above: Performed By: #### P HOS3, OSM, MG3, HEMDF ####[address] Hematocrit (Bld) [Volume fraction] 28.3 % Low 35.0-47.0 [facility] Comment on above: Performed By: #### P HOS3, OSM, MG3, HEMDF ####[address] Hemoglobin (Bld) [Mass/Vol] 9.1 g/dL Low 11.7-16.0 [facility] Comment on above: Performed By: #### P HOS3, OSM, MG3, HEMDF ####[address] Lymphocytes (Bld) [#/Vol] 0.7 10*3/uL Low 1.0-4.3 [facility] Comment on above: Performed By: #### P HOS3, OSM, MG3, HEMDF ####[address] Lymphocytes/100 WBC (Bld) 11.2 % Low 20.0-40.0 [facility] Comment on above: Performed By: #### P HOS3, OSM, MG3, HEMDF ####[address] MCH (RBC) [Entitic mass] 24.2 pg Low 26.0-34.0 [facility] Comment on above: Performed By: #### P HOS3, OSM, MG3, HEMDF ####[address] MCHC 32.2 % Normal 32.0-36.0 [facility] Comment on above: Performed By: #### P HOS3, OSM, MG3, HEMDF ####[address] MCV (RBC) [Entitic vol] 75.2 fL Low 79.0-98.0 [facility] Comment on above: Performed By: #### P HOS3, OSM, MG3, HEMDF ####[address] Monocytes (Bld) [#/Vol] 0.7 10*3/uL Normal 0.0-0.8 [facility] Comment on above: Performed By: #### P HOS3, OSM, MG3, HEMDF ####[address] Monocytes/100 WBC (Bld) 11.6 % High 2.0-10.0 [facility] Comment on above: Performed By: #### P HOS3, OSM, MG3, HEMDF ####[address] Platelet mean volume (Bld) [Entitic vol] 8.1 fL Normal 7.4-10.4 [facility] Comment on above: Performed By: #### P HOS3, OSM, MG3, HEMDF ####[address] Platelets (Bld) [#/Vol] 168 10*3/uL Normal 140-440 [facility] Comment on above: Performed By: #### P HOS3, OSM, MG3, HEMDF ####[address] RBC (Bld) [#/Vol] 3.76 10*6/uL Low 3.80-5.20 [facility] Comment on above: Performed By: #### P HOS3, OSM, MG3, HEMDF ####[address] [address] [place] [address] WBC (Bld) [#/Vol] 6.1 10*3/uL Normal 3.6-10.7 [facility] Comment on above: Performed By: #### P HOS3, OSM, MG3, HEMDF ####[address] [place] [address] Laboratory - Chemistry and C hemistry - challengeOrdered By: Shashank Sellers on 06-27-2021 Chloride [Moles/Vol] 96 mmol/L Low 98 - 10 7 mmol/L [facility] Work Phone: [phone] Sodium [Moles/Vol] 126 mmol/L Low 135 - 145 mmol/L [facility] Work Phone: [phone] Magnesiumon 06-27-2021 Magnesium [Mass/Vol] 2.0 mg/dL Normal 1.6-2.3 [facility] Comment on above: Performed By: #### P HOS3, OSM, MG3, HEMDF ####[address] [place] [address] MagnesiumOrdered By: Michelle lauren on 06-27-2021 Magnesium [Mass/Vol] 2.0 mg/dL 1.6 - 2 .3 mg/dL [facility] Work Phone: [phone] Panel InformationOrdered By: Lindsey Joyce on 06-27-2021 [facility] Work Phone: [phone] [facility] Work Phone: [phone] No Panel InformationOrdered By: Shashank Sellers on 06-27-2021 Interpretation and review of laboratory results Abnormal [facility] Work Phone: [phone] [facility] Work Phone: [phone] [facility] Work Phone: [phone] Panel InformationOrdered By: Michelle Petty on 06-27-2021 [facility] Work Phone: [phone] [facility] Work Phone: [phone] OsmolalityOrdered By: Lindsey Joyce on 06-27-2021 Serum Osmolality 282 mosm/kg 280 - 300 mosm/kg [facility] Work Phone: Osmolality,Serumon Osmolality,Serum 282 mosm/kg Normal 280-300 [facility] Comment on above: Performed By: #### P HOS3, OSM, MG3, HEMDF ####[facility] [id number] [place] [address] POCT GlucoseOrdered By: Jessica Soni on 06-27-2021 Glucose [Mass/Vol] 174 mg/dL High 70 - 100 mg/dL [facility] Work Phone: Interpretation and review of laboratory results Abnormal [facility] Work Phone: [phone] [facility] Work Phone: [phone] [facility] Work Phone: [phone] POCT GlucoseOrdered By: Gennaro Parsons on 06-27-2021 Glucose [Mass/Vol] 145 mg/dL High 70 - 100 mg/dL [facility] Work Phone: Interpretation and review of laboratory results Abnormal [facility] Work Phone: [phone] [facility] Work Phone: [phone] [facility] Work Phone: Glucose [Mass/Vol] 114 mg/dL High 70 - 100 mg/dL [facility] Work Phone: Interpretation and review of laboratory results Abnormal [facility] Work Phone: [facility] Work Phone: [facility] Work Phone: Phosphoruson 06-27-2021 Phosphate [Mass/Vol] 4.8 mg/dL High 2.5-4.5 [facility] Comment on above: Performed By: #### P HOS3, OSM, MG3, HEMDF ####[facility] [id number] [place] [address] PhosphorusOrdered By: Michelle pearson on 06-27-2021 Interpretation and review of laboratory results Abnormal [facility] Work Phone: Phosphate [Mass/Vol] 4.8 mg/dL High 2.5 - 4 .5 mg/dL [facility] Work Phone: Vancomycinon 06-27-2021 Vancomycin 52.2 ug/mL High 15.0-20.0 [facility] Comment on above: Result Comment: . Performed By: #### V ANL, BMP3 ####[facility] [place], [place] Vancomycin, RandomOrdered By : Silver Nick on 06-27-2021 Interpretation and review of laboratory results Abnormal [facility] Work Phone: Vancomycin 52.2 ug/mL High 15.0 - 20.0 ug/mL [facility] Work Phone: [phone] [facility] Work Phone: [phone] [facility] Work Phone: [phone] XR CHEST PORTABLEOrdered By: Zack Barakat on 06-27-2021 [facility] Work Phone: [phone] [facility] Work Phone: [phone] [facility] Work Phone: [phone] Add On Lab TestOrdered By: Agusto Kirk on 06-26-2021 Add On Accepted [facility] Work Phone: [phone] [facility] Work Phone: [phone] [facility] Work Phone: [phone] Add on test from HISon 06-26 Add on test from HIS Accepted Normal [facility] Comment on above: Result Comment: Spec imen available & acceptable for analysis. Performed By: #### A DDON ####[address] [place], [place] Basic Metabolic Panelon 05-31 Anion gap [Moles/Vol] 7 mmol/L Normal 3-13 [facility] Comment on above: Performed By: #### U RIC3, BMP3, PCAL ####[facility] [place], [place] Calcium [Mass/Vol] 8.4 mg/dL Normal 8.4-10.4 [facility] Comment on above: Performed By: #### U RIC3, BMP3, PCAL ####[facility] [place], [place] CO2 [Moles/Vol] 25 mmol/L Normal 22-30 [facility] Comment on above: Performed By: #### U RIC3, BMP3, PCAL ####[facility] [employer] [id number] [place], [place] Glucose [Mass/Vol] 120 mg/dL High 70-100 [facility] Comment on above: Performed By: #### U RIC3, BMP3, PCAL ####[address] [place], [place] Urea nitrogen [Mass/Vol] 44 mg/dL High 7-20 [facility] Comment on above: Performed By: #### U RIC3, BMP3, PCAL ####[facility] [employer] [id number] [place], [place] Creatinine [Mass/Vol] 2.69 mg/dL High 0.52-1.25 [facility] Comment on above: Performed By: #### U RIC3, BMP3, PCAL ####[facility] [employer] [id number] [place], [place] GFR/1.73 sq M.predicted among blacks MDRD (S/P/Bld) [Vol rate/Area] 22.5 mL/min/{1.73_m2} Abnormal >60 [facility] Comment on above: Performed By: #### U RIC3, BMP3, PCAL ####[facility] [employer] [id number] [place], [place] GFR/1.73 sq M.predicted among non-blacks MDRD (S/P/Bld) [Vol rate/Area] 19.4 mL/min/{1.73_m2} Abnormal >60 [facility] Comment on above: Result Comment: KDIG O guidelines provide the following GFR categories:Stage GFR(ml/min/1.73 m2) TermsG1 >=90 Normal or highG2 60-89 Mildly decreased*G3a 45-59 Mildly to moderately yzoqcyledI3g 30-44 Moderately to severely decreasedG4 15-29 Severely decreasedG5 <15 Kidney failure*Relative to young adult level.In the absence of evidence of kidney damage, neither GFRcategory G1 nor G2 fulfill the criteria for CKD.The CKD-EPI equation is validated in individuals 18 yearsof age and older. Currently the best equation forestimating glomerular filtration rate (GFR) from serumcreatinine in children is the Bedside Arehciga equation.It is less accurate in patients with extremes of musclemass, restriction of dietary protein, ingestion of creatine,extra-renal metabolism of creatinine, or treatment withmedications that affect renal tubular creatinine secretion. Performed By: #### U RIC3, BMP3, PCAL ####[address] [facility], [place] Potassium [Moles/Vol] 4.1 mmol/L Normal 3.5-5.1 [facility] Comment on above: Performed By: #### U RIC3, BMP3, PCAL ####[address] [place] Sodium [Moles/Vol] 127 mmol/L Low 135-145 [facility] Comment on above: Performed By: #### U RIC3, BMP3, PCAL ####[address] [place], [place] Chloride [Moles/Vol] 95 mmol/L Low 98-107 [facility] Comment on above: Performed By: #### U RIC3, BMP3, PCAL ####[address] [facility], [place] Anion gap [Moles/Vol] 8 mmol/L Normal 3-13 [facility] Comment on above: Performed By: #### B MP3 ####[address] [place], [place] Calcium [Mass/Vol] 8.2 mg/dL Low 8.4-10.4 [facility] Comment on above: Performed By: #### B MP3 ####[facility] [employer] [id number] [facility], [place] CO2 [Moles/Vol] 22 mmol/L Normal 22-30 [facility] Comment on above: Performed By: #### B MP3 ####[address] [facility], [place] Creatinine [Mass/Vol] 2.46 mg/dL High 0.52-1.25 [facility] Comment on above: Performed By: #### B MP3 ####[facility] [address] [place] [address] GFR/1.73 sq M.predicted among blacks MDRD (S/P/Bld) [Vol rate/Area] 25.0 mL/min/{1.73_m2} Abnormal >60 [facility] Comment on above: Performed By: #### B MP3 ####[facility] [address] [place] [address] GFR/1.73 sq M.predicted among non-blacks MDRD (S/P/Bld) [Vol rate/Area] 21.6 mL/min/{1.73_m2} Abnormal >60 [facility] Comment on above: Result Comment: KDIG O guidelines provide the following GFR categories:Stage GFR(ml/min/1.73 m2) TermsG1 >=90 Normal or highG2 60-89 Mildly decreased*G3a 45-59 Mildly to moderately ykycwjjaiK0k 30-44 Moderately to severely decreasedG4 15-29 Severely [...] creatinine secretion. Performed By: #### B MP3 ####[email or web address] [address] [place] [address] Glucose [Mass/Vol] 194 mg/dL High 70-100 [facility] Comment on above: Performed By: #### B MP3 ####[email or web address] [id number] [place] [address] Urea nitrogen [Mass/Vol] 43 mg/dL High 7-20 [facility] Comment on above: Performed By: #### B MP3 ####[facility] [place] [address] Chloride [Moles/Vol] 96 mmol/L Low 98-107 [facility] Comment on above: Performed By: #### B MP3 ####[address] [place] [address] Potassium [Moles/Vol] 4.3 mmol/L Normal 3.5-5.1 [facility] Comment on above: Performed By: #### B MP3 ####[address] [place] [address] Sodium [Moles/Vol] 126 mmol/L Low 135-145 [facility] Comment on above: Performed By: #### B MP3 ####[address] [place], [place] Basic Metabolic PanelOrdered By: Shashank Sellers on 06-26-2021 Anion gap [Moles/Vol] 7 mmol/L 3 - 13 mmol/L [facility] Work Phone: Calcium [Mass/Vol] 8.4 mg/dL 8.4 - 10. 4 mg/dL [facility] Work Phone: Chloride [Moles/Vol] 95 mmol/L Low 98 - 10 7 mmol/L [facility] Work Phone: CO2 [Moles/Vol] 25 mmol/L 22 - 30 mmol/L [facility] Work Phone: Creatinine [Mass/Vol] 2.69 mg/dL High 0.52 - 1.25 mg/dL [facility] Work Phone: EGFR IF NonAfrican Haitian 19.4 mL/min Abnormal >60 [facility] Work Phone: GFR/1.73 sq M.predicted among blacks MDRD (S/P/Bld) [Vol rate/Area] 22.5 mL/min/{1.73_m2} Abnormal >60 [facility] Work Phone: Glucose [Mass/Vol] 120 mg/dL High 70 - 100 mg/dL [facility] Work Phone: Interpretation and review of laboratory results Abnormal [facility] Work Phone: Potassium [Moles/Vol] 4.1 mmol/L 3.5 - 5.1 mmol/L [facility] Work Phone: Sodium [Moles/Vol] 127 mmol/L Low 135 - 145 mmol/L [facility] Work Phone: Urea nitrogen (BldV) [Mass/Vol] 44 mg/dL High 7 - 20 mg/dL [facility] Work Phone: [facility] Work Phone: [facility] Work Phone: CBC auto differentialOrdered By: Michelle Petty on 06-26-2021 Hematocrit (Bld) [Volume fraction] 30.3 % Low 35.0 - 47.0 % [facility] Work Phone: Hemoglobin.gastrointes tinal spec 1 Ql (Stl) 9.7 g/dL Low 11.7 - 16.0 g/dL [facility] Work Phone: Interpretation and review of laboratory results Abnormal [facility] Work Phone: MCH (RBC) [Entitic mass] 23.9 pg Low 26.0 - 34.0 pg [facility] Work Phone: MCHC (RBC) [Mass/Vol] 31.9 % Low 32.0 - 36.0 % [facility] Work Phone: MCV (RBC) [Entitic vol] 75.0 fL Low 79.0 - 98.0 fL [facility] Work Phone: Platelet distribution width (Bld) [Ratio] 24.6 % High 11.5 - 14.5 % [facility] Work Phone: Platelet mean volume (Bld) [Entitic vol] 7.9 fL 7.4 - 10.4 fL [facility] Work Phone: Platelets (Bld) [#/Vol] 140 10*3/uL 140 - 440 10*3/uL [employer] Work Phone: RBC (Bld) [#/Vol] 4.04 10*6/uL 3.80 - 5.2 0 10*6/uL [facility] Work Phone: [phone] WBC (Bld) [#/Vol] 6.1 10*3/uL 3.6 - 10.7 10*3/uL [facility] Work Phone: [phone] [facility] Work Phone: [phone] [facility] Work Phone: [phone] CREATININE, RANDOM URINEOrde red By: Lindsey Joyce on 06-26-2021 Creatinine (U) [Mass/Vol] 62.6 mg/dL No Range [facility] Work Phone: [phone] Complete Urinalysison 2020 Appearance (U) Turbid Abnormal Clear [facility] Comment on above: Result Comment: . Performed By: #### N AURR, UNURR, CUA2, CRTUR ####[facility], [place] #### OSMUR ####[facility] [address] [place] [place] [address] Bacteria Moderate Abnormal Negative [facility] Comment on above: Result Comment: . Performed By: #### N AURR, UNURR, CUA2, CRTUR ####[facility] [address] [place], [place] #### OSMUR ####[facility] [address] [place] [place] [address] Bilirubin,Urine Negative Normal Negative [facility] Comment on above: Result Comment: . Performed By: #### N AURR, UNURR, CUA2, CRTUR ####[email or web address] [address] [place] [address]#### OSMUR ####[facility] [employer] [address] [facility] [place] [address] Cast, Hyaline Negative Normal Negative [facility] Comment on above: Result Comment: . Performed By: #### N AURR, UNURR, CUA2, CRTUR ####[facility] [address] [place] [address]#### OSMUR ####[facility] [address] [place] [address] Color (U) Yellow Normal Lt. Yellow [facility] Comment on above: Result Comment: . Performed By: #### N AURR, UNURR, CUA2, CRTUR ####[facility] [address] [facility] [place] #### OSMUR ####[facility] [address] [place] [address] Glucose Ql (U) Normal Normal Normal (<70) [facility] Comment on above: Result Comment: . Performed By: #### N AURR, UNURR, CUA2, CRTUR ####[facility] [address] [facility] [place] #### OSMUR ####[facility] [address] [place] [address] Ketone,Urine Negative Normal Negative [facility] Comment on above: Result Comment: . Performed By: #### N AURR, UNURR, CUA2, CRTUR ####[facility] [address] [facility] #### OSMUR ####[facility] [address] [place] [address] Leukocytes,Urine Negative Normal Negative [facility] Comment on above: Result Comment: . Performed By: #### N AURR, UNURR, CUA2, CRTUR ####[facility] [address] [facility] [place] #### OSMUR ####[facility] [address] [place] [address] Mucous Threads Few Normal Negative [facility] Comment on above: Result Comment: . Performed By: #### N AURR, UNURR, CUA2, CRTUR ####[facility] [address] [facility] #### OSMUR ####[facility] [address] [place] [address] Nitrites,Urine Negative Normal Negative [facility] Comment on above: Result Comment: . Performed By: #### N AURR, UNURR, CUA2, CRTUR ####[facility] [address] [facility] [place] #### OSMUR ####[facility] [place] [address] Occult Blood,Urine Negative Normal Negative [facility] Comment on above: Result Comment: . Performed By: #### N AURR, UNURR, CUA2, CRTUR ####[place] [address] [facility] [place] #### OSMUR ####[facility] [place] [address] pH,Urine 5.0 Normal 5.0-8.0 [facility] Comment on above: Result Comment: . Performed By: #### N AURR, UNURR, CUA2, CRTUR ####[place] [address] [facility] [place] #### OSMUR ####[place] [address] [place] [address] Protein (U) [Mass/Vol] 20 mg/dL Abnormal Negative [facility] Comment on above: Result Comment: . Performed By: #### N AURR, UNURR, CUA2, CRTUR ####[place] [address] [facility] [place] #### OSMUR ####[facility] [place] [address] RBC, Urine 3 - 5 Abnormal 0-2 [facility] Comment on above: Result Comment: . Performed By: #### N AURR, UNURR, CUA2, CRTUR ####[place] [address] [facility] #### OSMUR ####[facility] [place] [address] Specific Diggs,Urine 1.007 Normal 1.005 - 1.030 [facility] Comment on above: Result Comment: . Performed By: #### N AURR, UNURR, CUA2, CRTUR ####[place] [address] [facility] #### OSMUR ####[place] [address] [place] [address] Squamous Epithelial 6 - 10 Abnormal 3-5 [facility] Comment on above: Result Comment: . Performed By: #### N AURR, UNURR, CUA2, CRTUR ####[facility] [employer] [address] [place] [address]#### OSMUR ####[facility] [facility] [place] [address] Urobilinogen,Urine Normal Normal Normal (0-1) [facility] Comment on above: Result Comment: . Performed By: #### N AURR, UNURR, CUA2, CRTUR ####[place] [address] [place] [address]#### OSMUR ####[facility] [facility] [place] [address] WBC, Urine 3 - 5 Normal 0-5 [facility] Comment on above: Result Comment: . Performed By: #### N AURR, UNURR, CUA2, CRTUR ####[facility] [employer] [address] [address]#### OSMUR ####[address] [facility] [place] [address] Creatinine, Ur Randomon 05-31 Creatinine, Ur Random 62.6 mg/dL Normal No Range [facility] Comment on above: Performed By: #### N AURR, UNURR, CUA2, CRTUR ####[facility] [employer] [address] [address]#### OSMUR ####[address] [facility] [place] [address] EKG 12 LeadOrdered By: Kathy Sterling on 06-26-2021 [facility] Work Phone: [facility] Work Phone: [facility] Work Phone: Glucose,Bedsideon 06-26-2021 Glucose [Mass/Vol] 208 mg/dL High 70-100 [facility] Comment on above: Result Comment: Test performed by glucose meter. Results may be 10%-15% lowerthan serum/plasma values. (CLIA ID [id number]) Performed By: #### B GLU ####[facility] [address], [place] Glucose [Mass/Vol] 157 mg/dL High 70-100 [facility] Comment on above: Result Comment: Test performed by glucose meter. Results may be 10%-15% lowerthan serum/plasma values. (CLIA ID [id number]) Performed By: #### B GLU ####[place] [address] [place], [place] Glucose [Mass/Vol] 140 mg/dL High 70-100 [facility] Comment on above: Result Comment: Test performed by glucose meter. Results may be 10%-15% lowerthan serum/plasma values. (CLIA ID [id number]) Performed By: #### B GLU ####[address] Glucose [Mass/Vol] 139 mg/dL High 70-100 [facility] Comment on above: Result Comment: Test performed by glucose meter. Results may be 10%-15% lowerthan serum/plasma values. (CLIA ID [id number]) Performed By: #### B GLU ####[address] Hemogram w/ Autodiffon 06-26 Erythrocyte distribution width (RBC) [Ratio] 24.6 % High 11.5-14.5 [facility] Comment on above: Performed By: #### M DIFF, MG3, HEMDF, PHOS3, LFT3 ####[address] Hematocrit (Bld) [Volume fraction] 30.3 % Low 35.0-47.0 [facility] Comment on above: Performed By: #### M DIFF, MG3, HEMDF, PHOS3, LFT3 ####[address] Hemoglobin (Bld) [Mass/Vol] 9.7 g/dL Low 11.7-16.0 [facility] Comment on above: Performed By: #### M DIFF, MG3, HEMDF, PHOS3, LFT3 ####[address] MCH (RBC) [Entitic mass] 23.9 pg Low 26.0-34.0 [facility] Comment on above: Performed By: #### M DIFF, MG3, HEMDF, PHOS3, LFT3 ####[address] [place], [place] MCHC 31.9 % Low 32.0-36.0 [facility] Comment on above: Performed By: #### M DIFF, MG3, HEMDF, PHOS3, LFT3 ####[address] MCV (RBC) [Entitic vol] 75.0 fL Low 79.0-98.0 [facility] Comment on above: Performed By: #### M DIFF, MG3, HEMDF, PHOS3, LFT3 ####[address] [place], [place] Platelet mean volume (Bld) [Entitic vol] 7.9 fL Normal 7.4-10.4 [facility] Comment on above: Performed By: #### M DIFF, MG3, HEMDF, PHOS3, LFT3 ####[address] [place] [place], [place] Platelets (Bld) [#/Vol] 140 10*3/uL Normal 140-440 [facility] Comment on above: Performed By: #### M DIFF, MG3, HEMDF, PHOS3, LFT3 ####[address] [place] [place], [place] RBC (Bld) [#/Vol] 4.04 10*6/uL Normal 3.80-5.20 [facility] Comment on above: Performed By: #### M DIFF, MG3, HEMDF, PHOS3, LFT3 ####[address] WBC (Bld) [#/Vol] 6.1 10*3/uL Normal 3.6-10.7 [facility] Comment on above: Performed By: #### M DIFF, MG3, HEMDF, PHOS3, LFT3 ####[place] [address] [facility] [place] Hepatic Functionon 1 ALP [Catalytic activity/Vol] 111 U/L Normal 38-126 [facility] Comment on above: Performed By: #### M DIFF, MG3, HEMDF, PHOS3, LFT3 ####[place] [address] [facility] [place] ALT [Catalytic activity/Vol] 42 U/L High 0-34 [facility] Comment on above: Result Comment: The ALT test is performed by an updated assay method.Please note that the reference intervals have beenchanged and are now sex specific. Performed By: #### M DIFF, MG3, HEMDF, PHOS3, LFT3 ####[place] [address] [place] AST [Catalytic activity/Vol] 31 U/L Normal 15-46 [facility] Comment on above: Performed By: #### M DIFF, MG3, HEMDF, PHOS3, LFT3 ####[place] [address] [facility] [place] Bilirubin [Mass/Vol] 0.4 mg/dL Normal 0.2-1.3 [facility] Comment on above: Performed By: #### M DIFF, MG3, HEMDF, PHOS3, LFT3 ####[place] [address] [facility] [place] Bilirubin.indirect [Mass/Vol] 0.0 mg/dL Normal 0.0-0.3 [facility] Comment on above: Performed By: #### M DIFF, MG3, HEMDF, PHOS3, LFT3 ####[place] [address] [facility] [place] Protein [Mass/Vol] 5.7 g/dL Low 6.3-8.2 [facility] Comment on above: Performed By: #### M DIFF, MG3, HEMDF, PHOS3, LFT3 ####[place] [address] [facility] [place] Albumin [Mass/Vol] 2.7 g/dL Low 3.5-5.0 [facility] Comment on above: Performed By: #### M DIFF, MG3, HEMDF, PHOS3, LFT3 ####[address] Magnesiumon 06-26-2021 Magnesium [Mass/Vol] 1.9 mg/dL Normal 1.6-2.3 [facility] Comment on above: Performed By: #### M DIFF, MG3, HEMDF, PHOS3, LFT3 ####[place] [address] [place], [place] Manual Diffon 06-26-2021 Abs Baso Cnt 0.0 10*3/uL Normal 0.0-0.2 [facility] Comment on above: Performed By: #### M DIFF, MG3, HEMDF, PHOS3, LFT3 ####[address] Abs Eosin Cnt 0.1 10*3/uL Normal 0.0-0.5 [facility] Comment on above: Performed By: #### M DIFF, MG3, HEMDF, PHOS3, LFT3 ####[address] Abs Lymph Cnt 0.8 10*3/uL Low 1.1-4.5 [facility] Comment on above: Performed By: #### M DIFF, MG3, HEMDF, PHOS3, LFT3 ####[address] Abs Monocyte Cnt 0.4 10*3/uL Normal 0.2-1.1 [facility] Comment on above: Performed By: #### M DIFF, MG3, HEMDF, PHOS3, LFT3 ####[address] Abs Neutrophile Cnt 4.7 10*3/uL Normal 2.2-8.2 [facility] Comment on above: Performed By: #### M DIFF, MG3, HEMDF, PHOS3, LFT3 ####[address] [place] [address] [place], [place] Bands 4 % High 0-3 [facility] Comment on above: Performed By: #### M DIFF, MG3, HEMDF, PHOS3, LFT3 ####[place] [address] [place], [place] Basophils 0 % Normal 0-2 [facility] Comment on above: Performed By: #### M DIFF, MG3, HEMDF, PHOS3, LFT3 ####[place] [address] [place], [place] Cells counted 100 Normal [facility] Comment on above: Performed By: #### M DIFF, MG3, HEMDF, PHOS3, LFT3 ####[place] [address] [place], [place] Eosinophils 1 % Normal 1-6 [facility] Comment on above: Performed By: #### M DIFF, MG3, HEMDF, PHOS3, LFT3 ####[place] [address] [place], [place] Lymphocytes 13 % Low 20-40 [facility] Comment on above: Performed By: #### M DIFF, MG3, HEMDF, PHOS3, LFT3 ####[address] [place] [place], [place] Metamyelocytes 2 % Abnormal <1 [facility] Comment on above: Performed By: #### M DIFF, MG3, HEMDF, PHOS3, LFT3 ####[address] [place] [place], [place] Monocytes 7 % Normal 2-10 [facility] Comment on above: Performed By: #### M DIFF, MG3, HEMDF, PHOS3, LFT3 ####[address] [place] [place], [place] RBC Morphology See Prev Normal [facility] Comment on above: Performed By: #### M DIFF, MG3, HEMDF, PHOS3, LFT3 ####[address] [place] [place], [place] Seg Neutrophils 73 % Normal 40-80 [facility] Comment on above: Performed By: #### M DIFF, MG3, HEMDF, PHOS3, LFT3 ####[facility] [employer] [id number] [place] [address] Manual DifferentialOrdered B y: Michelle Petty on 06-26-2021 Absolute Baso # 0.0 10*3/uL 0.0 - 0.2 10*3/uL [facility] Work Phone: [phone] Absolute Eos # 0.1 10*3/uL 0.0 - 0.5 10*3/uL [facility] Work Phone: [phone] Absolute Lymph # 0.8 10*3/uL Low 1.1 - 4.5 10*3/uL [facility] Work Phone: [phone] Absolute [place] # 0.4 10*3/uL 0.2 - 1.1 10*3/uL [...] [facility] Work Phone: [phone] [facility] Work Phone: [phone] Panel InformationOrdered By: Lindsey Joyce on 06-26-2021 [facility] Work Phone: [phone] [facility] Work Phone: [phone] Osmolality, UrineOrdered By: Lindsey Joyce on 06-26-2021 Interpretation and review of laboratory results Abnormal [facility] Work Phone: [phone] Osmolality, Ur 178 mosm/kg Low 300 - 1000 mosm/kg [facility] Work Phone: [phone] [facility] Work Phone: [phone] [facility] Work Phone: [phone] Osmolality,Urineon Osmolality,Urine 178 mosm/kg Low 300-1000 [facility] Comment on above: Performed By: #### N AURR, UNURR, CUA2, CRTUR ####[facility] [address] [place] [address]#### OSMUR ####[facility] [id number] [place] [address] POCT GlucoseOrdered By: Gennaro Parsons on 06-26-2021 Glucose [Mass/Vol] 208 mg/dL High 70 - 100 mg/dL [facility] Work Phone: [phone] Interpretation and review of laboratory results Abnormal [facility] Work Phone: [phone] [facility] Work Phone: [phone] [facility] Work Phone: 1 POCT GlucoseOrdered By: Jessica Soni on 06-26-2021 Glucose [Mass/Vol] 157 mg/dL High 70 - 100 mg/dL [facility] Work Phone: [phone] Interpretation and review of laboratory results Abnormal [facility] Work Phone: [phone] [facility] Work Phone: [phone] [facility] Work Phone: [phone] Glucose [Mass/Vol] 140 mg/dL High 70 - 100 mg/dL [facility] Work Phone: [phone] Interpretation and review of laboratory results Abnormal [facility] Work Phone: [phone] [facility] Work Phone: [phone] [facility] Work Phone: [phone] Glucose [Mass/Vol] 139 mg/dL High 70 - 100 mg/dL [facility] Work Phone: [phone] Interpretation and review of laboratory results Abnormal [facility] Work Phone: 1 [facility] Work Phone: [phone] [facility] Work Phone: [phone] Phosphoruson 06-26-2021 Phosphate [Mass/Vol] 3.8 mg/dL Normal 2.5-4.5 [facility] Comment on above: Performed By: #### M DIFF, MG3, HEMDF, PHOS3, LFT3 ####[facility] [employer] [address] [address] Procalcitoninon 06-26-2021 Procalcitonin 0.32 ng/mL High 0.00-0.09 [facility] Comment on above: Performed By: #### U RIC3, BMP3, PCAL ####[facility] [employer] [address] Interpretation See Below Normal [facility] Comment on above: Result Comment: PCT <0.50 = Low risk of severe sepsis and/or septic shock.PCT >2.00 = High risk of severe sepsis and/or septic shock. Performed By: #### U RIC3, BMP3, PCAL ####[facility] [employer] [address] ProcalcitoninOrdered By: Anthony Sellers on 06-26-2021 Interpretation See Below [facility] Work Phone: [phone] Interpretation and review of laboratory results Abnormal [facility] Work Phone: 1 Procalcitonin 0.32 ng/mL High 0.00 - 0.09 ng/mL [facility] Work Phone: 1 [facility] Work Phone: [phone] [facility] Work Phone: [phone] Sodium, Ur Randomon 06-26-20 21 Sodium, Ur Random < 5 Low 30-90 [facility] Comment on above: Performed By: #### N AURR, UNURR, CUA2, CRTUR ####[facility] [address] [place] [address]#### OSMUR ####[employer] [address] [place] [address] Sodium, Urine, RandomOrdered By: Lindsey Joyce on 06-26-2021 Interpretation and review of laboratory results Abnormal [facility] Work Phone: [phone] Sodium (U) [Moles/Vol] mmol/L Low 30 - 90 mmol/L [facility] Work Phone: [phone] US RETROPERITONEAL COMPLETEO rdered By: Monae Huang on 06-26-2021 [facility] Work Phone: [phone] [facility] Work Phone: [phone] [facility] Work Phone: [phone] US Retroperitoneal Completeo n 06-26-2021 US Retroperitoneal Complete Normal [facility] Urea Nitrogen,Ur Randomon Urea nitrogen [Mass/Vol] 276 mg/dL Normal No Range [facility] Comment on above: Performed By: #### N AURR, UNURR, CUA2, CRTUR ####[facility] [id number] [place], [place] #### OSMUR ####[facility] [employer] [address] [place] [address] Urea nitrogen, urineOrdered By: Lindsey Joyce on 06-26-2021 Urea Nitrogen, Random Urine 276 mg/dL No Range [facility] Work Phone: Uric Acidon 06-26-2021 Urate [Mass/Vol] 9.4 mg/dL High 2.5-8.5 [facility] Comment on above: Performed By: #### U RIC3, BMP3, PCAL ####[facility] [address] [place] [address] Uric AcidOrdered By: Shashank snowden on 06-26-2021 Interpretation and review of laboratory results Abnormal [facility] Work Phone: Urate [Mass/Vol] 9.4 mg/dL High 2.5 - 8.5 mg/dL [facility] Work Phone: [facility] Work Phone: [phone] [facility] Work Phone: [phone] UrinalysisOrdered By: Lindsey Joyce on 06-26-2021 Appearance (U) Turbid Abnormal Clear NA [facility] Work Phone: [phone] Bacteria, UA Moderate Abnormal Negative /[HPF] [facility] Work Phone: [phone] Bilirubin Urine Negative Negative mg/dL [facility] Work Phone: [phone] Color (U) Yellow Lt. Yellow NA [facility] Work Phone: [phone] Glucose, Ur Normal Normal (<70) mg/dL [facility] Work Phone: [phone] Hyaline Casts, UA Negative Negative /[LPF] [facility] Work Phone: [phone] Interpretation and review of laboratory results Abnormal [facility] Work Phone: [phone] Ketones Ql (U) Negative Negative mg/dL [facility] Work Phone: [phone] LEUKOCYTES, UA Negative Negative [place]/uL [facility] Work Phone: [phone] Mucous Threads Few Negative /[LPF] [facility] Work Phone: [phone] Nitrite, Urine Negative Negative NA [facility] Work Phone: [phone] Occult Blood,Urine Negative Negative mg/dL [facility] Work Phone: [phone] pH (U) 5.0 [pH] [facility] Work Phone: [phone] RBC, UA 3-5 Abnormal 0 - 2 /[HPF] [facility] Work Phone: [phone] Specific Diggs, Urine 1.007 [facility] Work Phone: [phone] Squam Epithel, UA 6-10 Abnormal 3 - 5 /[HPF] [facility] Work Phone: [phone] Total Protein, Urine 20 mg/dL Abnormal Negative [facility] Work Phone: [phone] Urobilinogen, Urine Normal Normal ( 0-1) mg/dL [facility] Work Phone: [phone] WBC, UA 3-5 0 - 5 /[HPF] [facility] Work Phone: [phone] [facility] Work Phone: [phone] [facility] Work Phone: [phone] Vancomycin Troughon 06-26-20 Vancomycin Trough 58.2 ug/mL High 15.0-20.0 [facility] Comment on above: Result Comment: . Performed By: #### V ANCT ####[address] Vancomycin, TroughOrdered By : Willie Andrade on 06-26-2021 Interpretation and review of laboratory results Abnormal [facility] Work Phone: [phone] Vancomycin Tr 58.2 ug/mL High 15.0 - 20.0 ug/mL [facility] Work Phone: [phone] [facility] Work Phone: [phone] [facility] Work Phone: [phone] Arterial Blood Gaseson 06-25 CO2 [Moles/Vol] 26.4 mmol/L Normal 23.0-27.0 [facility] Comment on above: Performed By: #### A BG ####[address] HCO3 (Bld) [Moles/Vol] 25.1 mmol/L High 21.0-25.0 [facility] Comment on above: Performed By: #### A BG ####[address] Hemoglobin (Bld) [Mass/Vol] 9.9 g/dL Normal ScreenOnly [facility] Comment on above: Performed By: #### A BG ####[address] Oxygen (Bld) [Partial pressure] 100.6 mm[Hg] High 80.0-100.0 [facility] Comment on above: Performed By: #### A BG ####[address] Oxygen saturation in Blood 97.5 % Normal 95.0-100.0 [facility] Comment on above: Performed By: #### A BG ####[address] pCO2 40.7 mm[Hg] Normal 35.0-45.0 [facility] Comment on above: Performed By: #### A BG ####[facility] [employer] [id number] [place], [place] pH 7.408 Normal 7.350-7.450 [facility] Comment on above: Performed By: #### A BG ####[facility] [employer] [address] [place], [place] Std Base Excess 0.4 mmol/L Normal -3.0-3.0 [facility] Comment on above: Performed By: #### A BG ####[facility] [employer] [id number] [place], [place] FIO2 No data Normal [facility] Comment on above: Performed By: #### A BG ####[facility] [employer] [id number] [place], [place] Basic Metabolic PanelOrdered By: Shashank Sellers on 06-25-2021 Anion gap [Moles/Vol] 8 mmol/L 3 - 13 mmol/L [facility] Work Phone: Calcium [Mass/Vol] 8.2 mg/dL Low 8.4 - 10. 4 mg/dL [facility] Work Phone: Chloride [Moles/Vol] 96 mmol/L Low 98 - 10 7 mmol/L [facility] Work Phone: CO2 [Moles/Vol] 22 mmol/L 22 - 30 mmol/L [facility] Work Phone: Creatinine [Mass/Vol] 2.46 mg/dL High 0.52 - 1.25 mg/dL [facility] Work Phone: EGFR IF NonAfrican Haitian 21.6 mL/min Abnormal >60 [facility] Work Phone: GFR/1.73 sq M.predicted among blacks MDRD (S/P/Bld) [Vol rate/Area] 25.0 mL/min/{1.73_m2} Abnormal >60 [facility] Work Phone: Glucose [Mass/Vol] 194 mg/dL High 70 - 100 mg/dL [facility] Work Phone: [phone] Interpretation and review of laboratory results Abnormal [facility] Work Phone: [phone] Potassium [Moles/Vol] 4.3 mmol/L 3.5 - 5.1 mmol/L [facility] Work Phone: [phone] Sodium [Moles/Vol] 126 mmol/L Low 135 - 145 mmol/L [facility] Work Phone: [phone] Urea nitrogen (BldV) [Mass/Vol] 43 mg/dL High 7 - 20 mg/dL [facility] Work Phone: [phone] [facility] Work Phone: [phone] [facility] Work Phone: [phone] Basic Metabolic Panelon - Calcium [Mass/Vol] 8.6 mg/dL Normal 8.4-10.4 [facility] Comment on above: Performed By: #### B MP3 ####[facility] [employer] [id number] [place] [address] Anion gap [Moles/Vol] 8 mmol/L Normal 3-13 [facility] Comment on above: Performed By: #### B MP3 ####[facility] [employer] [id number] [place] [address] CO2 [Moles/Vol] 23 mmol/L Normal 22-30 [facility] Comment on above: Performed By: #### B MP3 ####[facility] [employer] [id number] [place] [address] Creatinine [Mass/Vol] 2.25 mg/dL High 0.52-1.25 [facility] Comment on above: Performed By: #### B MP3 ####[facility] [employer] [id number] [place] [address] GFR/1.73 sq M.predicted among blacks MDRD (S/P/Bld) [Vol rate/Area] 27.9 mL/min/{1.73_m2} Abnormal >60 [facility] Comment on above: Performed By: #### B MP3 ####[address] [place] [address] GFR/1.73 sq M.predicted among non-blacks MDRD (S/P/Bld) [Vol rate/Area] 24.0 mL/min/{1.73_m2} Abnormal >60 [facility] Comment on above: Result Comment: KDIG O guidelines provide the following GFR categories:Stage GFR(ml/min/1.73 m2) TermsG1 >=90 Normal or highG2 60-89 Mildly decreased*G3a 45-59 Mildly to moderately [id number] 30-44 Moderately to severely decreasedG4 15-29 Severely [...] creatinine secretion. Performed By: #### B MP3 ####[address] [place], [place] Glucose [Mass/Vol] 119 mg/dL High 70-100 [facility] Comment on above: Performed By: #### B MP3 ####[address] Urea nitrogen [Mass/Vol] 40 mg/dL High 7-20 [facility] Comment on above: Performed By: #### B MP3 ####[address] [place], [place] Chloride [Moles/Vol] 94 mmol/L Low 98-107 [facility] Comment on above: Performed By: #### B MP3 ####[address] [place], [place] Potassium [Moles/Vol] 4.7 mmol/L Normal 3.5-5.1 [facility] Comment on above: Performed By: #### B MP3 ####[address] [place], [place] Sodium [Moles/Vol] 124 mmol/L Low 135-145 [facility] Comment on above: Performed By: #### B MP3 ####[address] [place], [place] Calcium [Mass/Vol] 8.7 mg/dL Normal 8.4-10.4 [facility] Comment on above: Performed By: #### H EMDF, MG3, BMP3M, PHOS3, MDIFF ####[address] [place], [place] Glucose [Mass/Vol] 129 mg/dL High 70-100 [facility] Comment on above: Performed By: #### H EMDF, MG3, BMP3M, PHOS3, MDIFF ####[address] [place], [place] Urea nitrogen [Mass/Vol] 37 mg/dL High 7-20 [facility] Comment on above: Performed By: #### H EMDF, MG3, BMP3M, PHOS3, MDIFF ####[address] [place], [place] Anion gap [Moles/Vol] 9 mmol/L Normal 3-13 [facility] Comment on above: Performed By: #### H EMDF, MG3, BMP3M, PHOS3, MDIFF ####[address] [place] CO2 [Moles/Vol] 20 mmol/L Low 22-30 [facility] Comment on above: Performed By: #### H EMDF, MG3, BMP3M, PHOS3, MDIFF ####[address] [place] Creatinine [Mass/Vol] 1.98 mg/dL High 0.52-1.25 [facility] Comment on above: Performed By: #### H EMDF, MG3, BMP3M, PHOS3, MDIFF ####[address] [place] GFR/1.73 sq M.predicted among blacks MDRD (S/P/Bld) [Vol rate/Area] 32.5 mL/min/{1.73_m2} Abnormal >60 [facility] Comment on above: Performed By: #### H EMDF, MG3, BMP3M PHOMD WoodrowIFF ####[facility] [employer] [id number] [place] [address] GFR/1.73 sq M.predicted among non-blacks MDRD (S/P/Bld) [Vol rate/Area] 28.1 mL/min/{1.73_m2} Abnormal >60 [facility] Comment on above: Result Comment: KDIG O guidelines provide the following GFR categories:Stage GFR(ml/min/1.73 m2) TermsG1 >=90 Normal or highG2 60-89 Mildly decreased*G3a 45-59 Mildly to moderately isicupfrtS8u 30-44 Moderately to severely decreasedG4 15-29 Severely [...] #### H EMDF, MG3, BMP3M PHOWoodrow MDIFF ####[facility] [employer] [id number] [place] [address] Potassium [Moles/Vol] 4.2 mmol/L Normal 3.5-5.1 [facility] Comment on above: Performed By: #### H EMDF, MG3, BMP3MELVIN MDIFF ####[facility] [employer] [id number] [place] [address] Chloride [Moles/Vol] 96 mmol/L Low 98-107 [facility] Comment on above: Performed By: #### H EMDF, MG3, BMP3M, PHOWoodrow, MDIFF ####[facility] [employer] [id number] [place] [address] Sodium [Moles/Vol] 125 mmol/L Low 135-[address] [facility] [employer] [facility] Comment on above: Performed By: #### H EMDF, MG3, BMP3M, MD ELVINIFF ####[facility] [id number] [place] [address] Basic Metabolic PanelOrdered By: Checo Kirk on 06-25-2021 Anion gap [Moles/Vol] 8 mmol/L 3 - 13 mmol/L [facility] Work Phone: Calcium [Mass/Vol] 8.6 mg/dL 8.4 - 10. 4 mg/dL [facility] Work Phone: [phone] Chloride [Moles/Vol] 94 mmol/L Low 98 - 10 7 mmol/L [facility] Work Phone: [phone] CO2 [Moles/Vol] 23 mmol/L 22 - 30 mmol/L [facility] Work Phone: [phone] Creatinine [Mass/Vol] 2.25 mg/dL High 0.52 - 1.25 mg/dL [facility] Work Phone: [phone] EGFR IF NonAfrican Haitian 24.0 mL/min Abnormal >60 [facility] Work Phone: GFR/1.73 sq M.predicted among blacks MDRD (S/P/Bld) [Vol rate/Area] 27.9 mL/min/{1.73_m2} Abnormal >60 [facility] Work Phone: Glucose [Mass/Vol] 119 mg/dL High 70 - 100 mg/dL [facility] Work Phone: [phone] Interpretation and review of laboratory results Abnormal [facility] Work Phone: Potassium [Moles/Vol] 4.7 mmol/L 3.5 - 5.1 mmol/L [facility] Work Phone: [phone] Sodium [Moles/Vol] 124 mmol/L Low 135 - 145 mmol/L [facility] Work Phone: Urea nitrogen (BldV) [Mass/Vol] 40 mg/dL High 7 - 20 mg/dL [facility] Work Phone: [facility] Work Phone: [phone] [facility] Work Phone: [phone] Basic Metabolic Panel w/ Ref kaitlin to MGOrdered By: Michelle Petty on 06-25-2021 Anion gap [Moles/Vol] 9 mmol/L 3 - 13 mmol/L [facility] Work Phone: [phone] Calcium [Mass/Vol] 8.7 mg/dL 8.4 - 10. 4 mg/dL [facility] Work Phone: [phone] Chloride [Moles/Vol] 96 mmol/L Low 98 - 10 7 mmol/L [facility] Work Phone: [phone] CO2 [Moles/Vol] 20 mmol/L Low 22 - 30 mmol/L [facility] Work Phone: [phone] Creatinine [Mass/Vol] 1.98 mg/dL High 0.52 - 1.25 mg/dL [facility] Work Phone: [phone] EGFR IF NonAfrican Haitian 28.1 mL/min Abnormal >60 [facility] Work Phone: [phone] GFR/1.73 sq M.predicted among blacks MDRD (S/P/Bld) [Vol rate/Area] 32.5 mL/min/{1.73_m2} Abnormal >60 [facility] Work Phone: [phone] Glucose [Mass/Vol] 129 mg/dL High 70 - 100 mg/dL [facility] Work Phone: [phone] Interpretation and review of laboratory results Abnormal [facility] Work Phone: [phone] Potassium [Moles/Vol] 4.2 mmol/L 3.5 - 5.1 mmol/L [facility] Work Phone: [phone] Sodium [Moles/Vol] 125 mmol/L Low 135 - 145 mmol/L [facility] Work Phone: [phone] Urea nitrogen (BldV) [Mass/Vol] 37 mg/dL High 7 - 20 mg/dL [facility] Work Phone: [phone] Blood Gas, ArterialOrdered B y: Willie Andrade on 06-25-2021 Base Excess, Arterial 0.4 mmol/L -3.0 - 3.0 mmol/L [facility] Work Phone: [phone] Arterial No data [facility] Work Phone: [phone] HCO3, Arterial 25.1 mmol/L High 21.0 - 25.0 mmol/L [facility] Work Phone: [phone] Hemoglobin, Art, Extended 9.9 g/dL ScreenOnly [facility] Work Phone: [phone] Interpretation and review of laboratory results Abnormal [facility] Work Phone: [phone] O2 Sat, Arterial 97.5 % 95.0 - 100. 0 % [facility] Work Phone: [phone] pCO2, Arterial 40.7 mm[Hg] 35.0 - 45.0 mm[Hg] [facility] Work Phone: [phone] pH, Arterial 7.408 [facility] Work Phone: [phone] pO2, Arterial 100.6 mm[Hg] High 80.0 - 100.0 mm[Hg] [facility] Work Phone: [phone] TCO2, Arterial 26.4 mmol/L 23.0 - 27.0 mmol/L [facility] Work Phone: [phone] [facility] Work Phone: [phone] [facility] Work Phone: [phone] CBC auto differentialOrdered By: Michelle Petty on 06-25-2021 Hematocrit (Bld) [Volume fraction] 33.6 % Low 35.0 - 47.0 % [facility] Work Phone: [phone] Hemoglobin.gastrointes tinal spec 1 Ql (Stl) 10.7 g/dL Low 11.7 - 16.0 g/dL [facility] Work Phone: [phone] Interpretation and review of laboratory results Abnormal [facility] Work Phone: [phone] MCH (RBC) [Entitic mass] 23.7 pg Low 26.0 - 34.0 pg [facility] Work Phone: [phone] MCHC (RBC) [Mass/Vol] 31.7 % Low 32.0 - 36.0 % [facility] Work Phone: [phone] MCV (RBC) [Entitic vol] 74.9 fL Low 79.0 - 98.0 fL [facility] Work Phone: Platelet distribution width (Bld) [Ratio] 25.1 % High 11.5 - 14.5 % [employer] Work Phone: [phone] Platelet mean volume (Bld) [Entitic vol] 8.0 fL 7.4 - 10.4 fL [employer] Work Phone: [phone] Platelets (Bld) [#/Vol] 155 10*3/uL 140 - 440 10*3/uL [facility] Work Phone: [phone] RBC (Bld) [#/Vol] 4.49 10*6/uL 3.80 - 5.2 0 10*6/uL [facility] Work Phone: [phone] WBC (Bld) [#/Vol] 7.2 10*3/uL 3.6 - 10.7 10*3/uL [facility] Work Phone: [phone] [facility] Work Phone: [phone] [facility] Work Phone: [phone] CR Chest Portableon 06-25-20 21 CR Chest Portable Normal [facility] CULTURE BLOODon 06-25-2021 Microscopic examination of blood, culture CULTURE BLOOD --> Status: F No growth at 5 days. [facility] Comment on above: Performed By: #### C /BLD ####[employer] [place], [place] CULTURE BLOOD (Two)on 2020 Microscopic examination of blood, culture CULTURE BLOOD (Two) --> Status: F No growth at 5 days. Normal [facility] Comment on above: Performed By: #### C /BLT ####[employer] [place], [place] Glucose,Bedsideon 06-25-2021 Glucose [Mass/Vol] 206 mg/dL High 70-100 [facility] Comment on above: Result Comment: Test performed by glucose meter. Results may be 10%-15% lowerthan serum/plasma values. (CLIA ID [id number]) Performed By: #### B GLU ####[employer] [place], [place] Glucose [Mass/Vol] 130 mg/dL High 70-100 [facility] Comment on above: Result Comment: Test performed by glucose meter. Results may be 10%-15% lowerthan serum/plasma values. (CLIA ID [id number]) Performed By: #### B GLU ####[address] Hemogram w/ Autodiffon 06-25 Erythrocyte distribution width (RBC) [Ratio] 25.1 % High 11.5-14.5 [facility] Comment on above: Performed By: #### H EMDF, MG3, BMP3M, PHOS3, MDIFF ####[address] [place], [place] Hematocrit (Bld) [Volume fraction] 33.6 % Low 35.0-47.0 [facility] Comment on above: Performed By: #### H EMDF, MG3, BMP3M, PHOS3, MDIFF ####[address] [place], [place] Hemoglobin (Bld) [Mass/Vol] 10.7 g/dL Low 11.7-16.0 [facility] Comment on above: Performed By: #### H EMDF, MG3, BMP3M, PHOS3, MDIFF ####[address] [place], [place] MCH (RBC) [Entitic mass] 23.7 pg Low 26.0-34.0 [facility] Comment on above: Performed By: #### H EMDF, MG3, BMP3M, PHOS3, MDIFF ####[address] [place], [place] MCHC 31.7 % Low 32.0-36.0 [facility] Comment on above: Performed By: #### H EMDF, MG3, BMP3M, PHOS3, MDIFF ####[address] [place], [place] MCV (RBC) [Entitic vol] 74.9 fL Low 79.0-98.0 [facility] Comment on above: Performed By: #### H EMDF, MG3, BMP3M, PHOS3, MDIFF ####[facility] [place], [place] Platelet mean volume (Bld) [Entitic vol] 8.0 fL Normal 7.4-10.4 [facility] Comment on above: Performed By: #### H EMDF, MG3, BMP3M, PHOS3, MDIFF ####[address] [place], [place] Platelets (Bld) [#/Vol] 155 10*3/uL Normal 140-440 [facility] Comment on above: Performed By: #### H EMDF, MG3, BMP3M, PHOS3, MDIFF ####[address] [place] RBC (Bld) [#/Vol] 4.49 10*6/uL Normal 3.80-5.20 [facility] Comment on above: Performed By: #### H EMDF, MG3, BMP3M, PHOS3, MDIFF ####[facility] [employer] [id number] [place], [place] WBC (Bld) [#/Vol] 7.2 10*3/uL Normal 3.6-10.7 [facility] Comment on above: Performed By: #### H EMDF, MG3, BMP3M, PHOS3, MDIFF ####[address] [place], [place] Hepatic Function PanelOrdere d By: Tello Sterling on 06-25-2021 Albumin [Mass/Vol] 2.7 g/dL Low 3.5 - 5.0 g/dL [facility] Work Phone: ALP (Bld) [Catalytic activity/Vol] 111 U/L 38 - 126 U/L [facility] Work Phone: ALT [Catalytic activity/Vol] 42 U/L High 0 - 34 U/L [facility] Work Phone: AST [Catalytic activity/Vol] 31 U/L 15 - 46 U/L [facility] Work Phone: Bilirubin [Mass/Vol] 0.4 mg/dL 0.2 - 1 .3 mg/dL [facility] Work Phone: [phone] Bilirubin.indirect [Mass/Vol] 0.0 mg/dL 0.0 - 0.3 mg/dL [facility] Work Phone: [phone] Free PSA/Total PSA [Mass fraction] 5.7 g/dL Low 6.3 - 8.2 g/dL [facility] Work Phone: [phone] Interpretation and review of laboratory results Abnormal [facility] Work Phone: [phone] MagnesiumOrdered By: Michelle lauren on 06-25-2021 Magnesium [Mass/Vol] 1.9 mg/dL 1.6 - 2 .3 mg/dL [facility] Work Phone: [phone] Magnesium [Mass/Vol] 2.1 mg/dL 1.6 - 2 .3 mg/dL [facility] Work Phone: [phone] Magnesiumon 06-25-2021 Magnesium [Mass/Vol] 2.1 mg/dL Normal 1.6-2.3 [facility] Comment on above: Performed By: #### H EMDF, MG3, BMP3MELVIN MDIFF ####[facility] [employer] [address] Manual Diffon 06-25-2021 Abs Baso Cnt 0.0 10*3/uL Normal 0.0-0.2 [facility] Comment on above: Performed By: #### H EMDF, MG3, BMP3M, PHOWoodrow, MDIFF ####[facility] [employer] [id number] [place], [place] Abs Eosin Cnt 0.2 10*3/uL Normal 0.0-0.5 [facility] Comment on above: Performed By: #### H EMDF, MG3, BMP3M, PHOWoordow, MDIFF ####[facility] [employer] [id number] [place], [place] Abs Lymph Cnt 0.5 10*3/uL Low 1.1-4.5 [facility] Comment on above: Performed By: #### H EMDF, MG3, BMP3M, PHOS3, MDIFF ####[address] [place], [place] Abs Monocyte Cnt 0.1 10*3/uL Low 0.2-1.1 [facility] Comment on above: Performed By: #### H EMDF, MG3, BMP3M, PHOS3, MDIFF ####[address] [place], [place] Abs Neutrophile Cnt 6.2 10*3/uL Normal 2.2-8.2 [facility] Comment on above: Performed By: #### H EMDF, MG3, BMP3M, PHOS3, MDIFF ####[address] Bands 0 % Normal 0-3 [facility] Comment on above: Performed By: #### H EMDF, MG3, BMP3M, PHOS3, MDIFF ####[address] Basophils 0 % Normal 0-2 [facility] Comment on above: Performed By: #### H EMDF, MG3, BMP3M, PHOS3, MDIFF ####[address] [place], [place] Cells counted 100 Normal [facility] Comment on above: Performed By: #### H EMDF, MG3, BMP3M, PHOS3, MDIFF ####[address] Eosinophils 3 % Normal 1-6 [facility] Comment on above: Performed By: #### H EMDF, MG3, BMP3M, PHOS3, MDIFF ####[address] [place], [place] Lymphocytes 7 % Low 20-40 [facility] Comment on above: Performed By: #### H EMDF, MG3, BMP3M, PHOS3, MDIFF ####[address] [place], [place] Metamyelocytes 3 % Abnormal <1 [facility] Comment on above: Performed By: #### H EMDF, MG3, BMP3M, PHOS3, MDIFF ####[facility] [employer] [id number] [employer] [place], [place] Monocytes 1 % Low 2-10 [facility] Comment on above: Performed By: #### H EMDF, MG3, BMP3M, PHOS3, MDIFF ####[facility] [id number] [employer] [place] RBC Morphology See Prev Normal [facility] Comment on above: Performed By: #### H EMDF, MG3, BMP3M, PHOS3, MDIFF ####[facility] [address] [employer] [place] Seg Neutrophils 86 % High 40-80 [facility] Comment on above: Performed By: #### H EMDF, MG3, BMP3M, PHOS3, MDIFF ####[address] [place] [address] Manual DifferentialOrdered B y: Michelle Petty on 06-25-2021 Absolute Baso # 0.0 10*3/uL 0.0 - 0.2 10*3/uL [employer] Work Phone: [phone] [place] # 0.2 10*3/uL 0.0 - 0.5 10*3/uL [facility] Work Phone: 22 Absolute Lymph # 0.5 10*3/uL Low 1.1 - 4.5 10*3/uL [employer] Work Phone: [address] [place] # 0.1 10*3/uL Low 0.2 - 1.1 10*3/uL [facility] Work Phone: 22 Absolute Neut # 6.2 10*3/uL 2.2 - 8.2 10*3/uL [facility] Work Phone: [phone] Bands 0 % 0 - 3 % [employer] Work Phone: 22 Basophils/100 WBC (Bld) 0 % 0 - 2 % [facility] Work Phone: 22 Eosinophils/100 WBC (Bld) 3 % 1 - 6 % [facility] Work Phone: [phone] Interpretation and review of laboratory results Abnormal [facility] Work Phone: [phone] Lymphocytes/100 WBC (Bld) 7 % Low 20 - 40 % [facility] Work Phone: [phone] Metamyelocytes 3 % Abnormal <1 [facility] Work Phone: [phone] Monocytes/100 WBC (Bld) 1 % Low 2 - 10 % [facility] Work Phone: [phone] RBC (Bld) [#/Vol] See Prev [facility] Work Phone: [phone] Neutrophils 86 % High 40 - 80 % [facility] Work Phone: [phone] TOTAL CELLS COUNTED 100 [facility] Work Phone: [phone] [facility] Work Phone: [phone] [facility] Work Phone: [phone] Panel InformationOrdered By: Michelle Petty on 06-25-2021 [facility] Work Phone: [phone] [facility] Work Phone: [phone] [facility] Work Phone: [phone] [facility] Work Phone: [phone] Panel InformationOrdered By: Eladia Scanlon on 06-25-2021 Blood Culture, Routine No growth at 5 days. [facility] Work Phone: [phone] [facility] Work Phone: [phone] [facility] Work Phone: [phone] POCT GlucoseOrdered By: Gennaro Parsons on 06-25-2021 Glucose [Mass/Vol] 206 mg/dL High 70 - 100 mg/dL [facility] Work Phone: [phone] Interpretation and review of laboratory results Abnormal [facility] Work Phone: [phone] [facility] Work Phone: [phone] [facility] Work Phone: [phone] Glucose [Mass/Vol] 130 mg/dL High 70 - 100 mg/dL [facility] Work Phone: [phone] Interpretation and review of laboratory results Abnormal [facility] Work Phone: [phone] [facility] Work Phone: [phone] [facility] Work Phone: [phone] PhosphorusOrdered By: Michelle pearson on 06-25-2021 Phosphate [Mass/Vol] 3.8 mg/dL 2.5 - 4 .5 mg/dL [facility] Work Phone: [phone] Phosphate [Mass/Vol] 4.0 mg/dL 2.5 - 4 .5 mg/dL [facility] Work Phone: [phone] Phosphoruson 06-25-2021 Phosphate [Mass/Vol] 4.0 mg/dL Normal 2.5-4.5 [facility] Comment on above: Performed By: #### H EMDF, MG3, BMP3M, PHOS3, MDIFF ####[facility] [place] [address] XR CHEST PORTABLEOrdered By: Willie Andrade on 06-25-2021 [facility] Work Phone: [phone] [facility] Work Phone: [phone] [facility] Work Phone: [phone] Basic Metabolic Panelon 05-31 Calcium [Mass/Vol] 8.5 mg/dL Normal 8.4-10.4 [facility] Comment on above: Performed By: #### B MP3M, PHOS3, LFT3, ICA, MG3, HEMDF ####[address] [place] [address] Glucose [Mass/Vol] 152 mg/dL High 70-100 [facility] Comment on above: Performed By: #### B MP3M, PHOS3, LFT3, ICA, MG3, HEMDF ####[facility] [employer] [id number] [place] [address] Urea nitrogen [Mass/Vol] 34 mg/dL High 7-20 [facility] Comment on above: Performed By: #### B MP3M, PHOS3, LFT3, ICA, MG3, HEMDF ####[facility] [place] [address] Anion gap [Moles/Vol] 7 mmol/L Normal 3-13 [facility] Comment on above: Performed By: #### B MP3M, PHOS3, LFT3, ICA, MG3, HEMDF ####[address] [place], [place] CO2 [Moles/Vol] 28 mmol/L Normal 22-30 [facility] Comment on above: Performed By: #### B MP3M, PHOS3, LFT3, ICA, MG3, HEMDF ####[address] [place], [place] Creatinine [Mass/Vol] 1.26 mg/dL High 0.52-1.25 [facility] Comment on above: Performed By: #### B MP3M, PHOS3, LFT3, ICA, MG3, HEMDF ####[address] [place], [place] GFR/1.73 sq M.predicted among blacks MDRD (S/P/Bld) [Vol rate/Area] 56.2 mL/min/{1.73_m2} Abnormal >60 [facility] Comment on above: Performed By: #### B MP3M, PHOS3, LFT3, ICA, MG3, HEMDF ####[address] [place] GFR/1.73 sq M.predicted among non-blacks MDRD (S/P/Bld) [Vol rate/Area] 48.5 mL/min/{1.73_m2} Abnormal >60 [facility] Comment on above: Result Comment: KDIG O guidelines provide the following GFR categories:Stage GFR(ml/min/1.73 m2) TermsG1 >=90 Normal or highG2 60-89 Mildly decreased*G3a 45-59 Mildly to moderately [id number] 30-44 Moderately to severely decreasedG4 15-29 Severely [...] B MP3M, PHOS3, LFT3, ICA, MG3, HEMDF ####[facility] [employer] [id number] [place], [place] Chloride [Moles/Vol] 96 mmol/L Low 98-107 [facility] Comment on above: Performed By: #### B MP3M, PHOS3, LFT3, ICA, MG3, HEMDF ####[facility] [place] Potassium [Moles/Vol] 4.1 mmol/L Normal 3.5-5.1 [facility] Comment on above: Result Comment: Slig htly hemolysed, interpret with caution. Performed By: #### B MP3M, PHOS3, LFT3, ICA, MG3, HEMDF ####[facility] [employer] [id number] [place], [place] Sodium [Moles/Vol] 131 mmol/L Low 135-145 [facility] Comment on above: Performed By: #### B MP3M, PHOS3, LFT3, ICA, MG3, HEMDF ####[facility] [employer] [id number] [place], [place] Basic Metabolic Panel w/ Ref kaitlin to MGOrdered By: Michelle Petty on 06-24-2021 Anion gap [Moles/Vol] 7 mmol/L 3 - 13 mmol/L [facility] Work Phone: Calcium [Mass/Vol] 8.5 mg/dL 8.4 - 10. 4 mg/dL [facility] Work Phone: Chloride [Moles/Vol] 96 mmol/L Low 98 - 10 7 mmol/L [facility] Work Phone: CO2 [Moles/Vol] 28 mmol/L 22 - 30 mmol/L [facility] Work Phone: Creatinine [Mass/Vol] 1.26 mg/dL High 0.52 - 1.25 mg/dL [facility] Work Phone: EGFR IF NonAfrican Haitian 48.5 mL/min Abnormal >60 [facility] Work Phone: [...] 4.3 10*3/uL [facility] Work Phone: 22 Absolute [place] # 0.9 10*3/uL High 0.0 - 0.8 [...] 30.3 % Low 35.0 - 47.0 % [employer] Work Phone: 22 Hemoglobin.gastrointes tinal spec 1 Ql (Stl) 9.8 g/dL Low 11.7 - 16.0 g/dL [employer] Work Phone: Interpretation and review of laboratory results Abnormal [employer] Work Phone: 22 Lymphocytes/100 WBC (Bld) 9.5 % Low 20.0 - 40.0 % [employer] Work Phone: MCH (RBC) [Entitic mass] 23.8 pg Low 26.0 - 34.0 pg [employer] Work Phone: MCHC (RBC) [Mass/Vol] 32.4 % 32.0 - 36.0 % [employer] Work Phone: MCV (RBC) [Entitic vol] 73.6 fL Low 79.0 - 98.0 fL [employer] Work Phone: Monocytes/100 WBC (Bld) 11.9 % High 2.0 - 10.0 % [employer] Work Phone: Platelet distribution width (Bld) [Ratio] 24.2 % High 11.5 - 14.5 % [employer] Work Phone: Platelet mean volume (Bld) [Entitic vol] 8.6 fL 7.4 - 10.4 fL [employer] Work Phone: 22 Platelets (Bld) [#/Vol] 153 10*3/uL 140 - 440 10*3/uL [employer] Work Phone: RBC (Bld) [#/Vol] 4.12 10*6/uL 3.80 - 5.2 0 10*6/uL [facility] Work Phone: WBC (Bld) [#/Vol] 7.2 10*3/uL 3.6 - 10.7 10*3/uL [facility] Work Phone: 22 [facility] Work Phone: [facility] Work Phone: CULT./ST. RESPIRATORYon -2 CULT./ST. RESPIRATORY Normal [facility] Comment on above: Performed By: #### S /GRM ####[facility] [address] [place] [address]#### CS/RE ####[facility] [id number] [place] [address] [address] [place], [place] [id number] Calcium,Ionizedon 06-24-2021 Ionized Ca,Measured 3.80 mg/dL Low 4.30-5.20 [facility] Comment on above: Performed By: #### B MP3M, PHOS3, LFT3, ICA, MG3, HEMDF ####[place] [id number] [place], [place] pH, Ionized Calcium 7.40 Normal 7.31-7.46 [facility] Comment on above: Performed By: #### B MP3M, PHOS3, LFT3, ICA, MG3, HEMDF ####[address] . [place], [place] Culture, RespiratoryOrdered By: Jethro Hutchison on 06-24-2021 Interpretation and review of laboratory results Abnormal [facility] Work Phone: [phone] Respiratory Culture Few normal respirato ry pretty. Abnormal [facility] Work Phone: [phone] Respiratory Culture Staphylococcus aureus Abnormal [facility] Work Phone: [phone] Respiratory Culture [facility] Work Phone: [phone] [facility] Work Phone: [phone] [facility] Work Phone: Glucose,Bedsideon 06-24-2021 Glucose [Mass/Vol] 189 mg/dL High 70-100 [facility] Comment on above: Result Comment: Test performed by glucose meter. Results may be 10%-15% lowerthan serum/plasma values. (CLIA ID [id number]) Performed By: #### B GLU ####[address] [place] [address] Glucose [Mass/Vol] 148 mg/dL High 70-100 [facility] Comment on above: Result Comment: Test performed by glucose meter. Results may be 10%-15% lowerthan serum/plasma values. (CLIA ID [id number]) Performed By: #### B GLU ####[address] [place], [place] Glucose [Mass/Vol] 222 mg/dL High 70-100 [facility] Comment on above: Result Comment: Test performed by glucose meter. Results may be 10%-15% lowerthan serum/plasma values. (CLIA ID [id number]) Performed By: #### B GLU ####[address] [place], [place] Glucose [Mass/Vol] 214 mg/dL [facility] 70-100 [facility] Comment on above: Result Comment: Test performed by glucose meter. Results may be 10%-15% lowerthan serum/plasma values. (CLIA ID [id number]) Performed By: #### B GLU ####[facility] [employer] [address] [address] [place], [place] Glucose [Mass/Vol] 144 mg/dL [facility] 70-100 [facility] Comment on above: Result Comment: Test performed by glucose meter. Results may be 10%-15% lowerthan serum/plasma values. (CLIA ID [id number]) Performed By: #### B GLU ####[address] [place], [place] Hemogram w/ Autodiffon 06-24 Abs Baso Cnt 0.1 10*3/uL Normal 0.0-0.2 [facility] Comment on above: Performed By: #### B MP3M, PHOS3, LFT3, ICA, MG3, HEMDF ####[facility] [employer] [id number] [place], [place] Abs Neutrophile Cnt 5.2 10*3/uL Normal 1.8-7.0 [facility] Comment on above: Performed By: #### B MP3M, PHOS3, LFT3, ICA, MG3, HEMDF ####[address] [place], [place] Basophils/100 WBC (Bld) 0.8 % Normal 0.0-2.0 [facility] Comment on above: Performed By: #### B MP3M, PHOS3, LFT3, ICA, MG3, HEMDF ####[address] [place], [place] Eosinophils (Bld) [#/Vol] 0.4 10*3/uL Normal 0.0-0.5 [facility] Comment on above: Performed By: #### B MP3M, PHOS3, LFT3, ICA, MG3, HEMDF ####[address] [place], [place] Eosinophils/100 WBC (Bld) 5.0 % Normal 1.0-6.0 [facility] Comment on above: Performed By: #### B MP3M, PHOS3, LFT3, ICA, MG3, HEMDF ####[address] [place], [place] Erythrocyte distribution width (RBC) [Ratio] 24.2 % High 11.5-14.5 [facility] Comment on above: Performed By: #### B MP3M, PHOS3, LFT3, ICA, MG3, HEMDF ####[address] [place], [place] Granulocytes/100 WBC (Bld) 72.8 % Normal 40.0-80.0 [facility] Comment on above: Performed By: #### B MP3M, PHOS3, LFT3, ICA, MG3, HEMDF ####[address] [place], [place] Hematocrit (Bld) [Volume fraction] 30.3 % Low 35.0-47.0 [facility] Comment on above: Performed By: #### B MP3M, PHOS3, LFT3, ICA, MG3, HEMDF ####[address] [place], [place] Hemoglobin (Bld) [Mass/Vol] 9.8 g/dL Low 11.7-16.0 [facility] Comment on above: Performed By: #### B MP3M, PHOS3, LFT3, ICA, MG3, HEMDF ####[address] [place], [place] Lymphocytes (Bld) [#/Vol] 0.7 10*3/uL Low 1.0-4.3 [facility] Comment on above: Performed By: #### B MP3M, PHOS3, LFT3, ICA, MG3, HEMDF ####[address] Lymphocytes/100 WBC (Bld) 9.5 % Low 20.0-40.0 [facility] Comment on above: Performed By: #### B MP3M, PHOS3, LFT3, ICA, MG3, HEMDF ####[address] MCH (RBC) [Entitic mass] 23.8 pg Low 26.0-34.0 [facility] Comment on above: Performed By: #### B MP3M, PHOS3, LFT3, ICA, MG3, HEMDF ####[address] MCHC 32.4 % Normal 32.0-36.0 [facility] Comment on above: Performed By: #### B MP3M, PHOS3, LFT3, ICA, MG3, HEMDF ####[address] MCV (RBC) [Entitic vol] 73.6 fL Low 79.0-98.0 [facility] Comment on above: Performed By: #### B MP3M, PHOS3, LFT3, ICA, MG3, HEMDF ####[address] Monocytes (Bld) [#/Vol] 0.9 10*3/uL High 0.0-0.8 [facility] Comment on above: Performed By: #### B MP3M, PHOS3, LFT3, ICA, MG3, HEMDF ####[address] [place] Monocytes/100 WBC (Bld) 11.9 % High 2.0-10.0 [facility] Comment on above: Performed By: #### B MP3M, PHOS3, LFT3, ICA, MG3, HEMDF ####[address] [place] Platelet mean volume (Bld) [Entitic vol] 8.6 fL Normal 7.4-10.4 [facility] Comment on above: Performed By: #### B MP3M, PHOS3, LFT3, ICA, MG3, HEMDF ####[address] [place], [place] Platelets (Bld) [#/Vol] 153 10*3/uL Normal 140-440 [facility] Comment on above: Performed By: #### B MP3M, PHOS3, LFT3, ICA, MG3, HEMDF ####[address] [place], [place] RBC (Bld) [#/Vol] 4.12 10*6/uL Normal 3.80-5.20 [facility] Comment on above: Performed By: #### B MP3M, PHOS3, LFT3, ICA, MG3, HEMDF ####[address] [place], [place] WBC (Bld) [#/Vol] 7.2 10*3/uL Normal 3.6-10.7 [facility] Comment on above: Performed By: #### B MP3M, PHOS3, LFT3, ICA, MG3, HEMDF ####[address] [place], [place] Hepatic Functionon 1 ALP [Catalytic activity/Vol] 112 U/L Normal 38-126 [facility] Comment on above: Result Comment: Slig htly hemolysed, interpret with caution. Performed By: #### B MP3M, PHOS3, LFT3, ICA, MG3, HEMDF ####[address] [place], [place] ALT [Catalytic activity/Vol] 57 U/L High 0-34 [facility] Comment on above: Result Comment: The ALT test is performed by an updated assay method.Please note that the reference intervals have beenchanged and are now sex specific. Performed By: #### B MP3M, PHOS3, LFT3, ICA, MG3, HEMDF ####[address] [place], [place] AST [Catalytic activity/Vol] 46 U/L Normal 15-46 [facility] Comment on above: Result Comment: Slig htly hemolysed, interpret with caution. Performed By: #### B MP3M, PHOS3, LFT3, ICA, MG3, HEMDF ####[address] [place], [place] Bilirubin [Mass/Vol] 0.7 mg/dL Normal 0.2-1.3 [facility] Comment on above: Performed By: #### B MP3M, PHOS3, LFT3, ICA, MG3, HEMDF ####[address] [place], [place] Bilirubin.indirect [Mass/Vol] 0.0 mg/dL Normal 0.0-0.3 [facility] Comment on above: Performed By: #### B MP3M, PHOS3, LFT3, ICA, MG3, HEMDF ####[address] [place], [place] Protein [Mass/Vol] 6.6 g/dL Normal 6.3-8.2 [facility] Comment on above: Performed By: #### B MP3M, PHOS3, LFT3, ICA, MG3, HEMDF ####[address] [place] Albumin [Mass/Vol] 2.9 g/dL Low 3.5-5.0 [facility] Comment on above: Performed By: #### B MP3M, PHOS3, LFT3, ICA, MG3, HEMDF ####[address] [place] [address] Hepatic Function PanelOrdere d By: Michelle Petty on 06-24-2021 Albumin [Mass/Vol] 2.9 g/dL Low 3.5 - 5.0 g/dL [facility] Work Phone: ALP (Bld) [Catalytic activity/Vol] 112 U/L 38 - 126 U/L [facility] Work Phone: ALT [Catalytic activity/Vol] 57 U/L High 0 - 34 U/L [facility] Work Phone: AST [Catalytic activity/Vol] 46 U/L 15 - 46 U/L [facility] Work Phone: Bilirubin [Mass/Vol] 0.7 mg/dL 0.2 - 1 .3 mg/dL [facility] Work Phone: Bilirubin.indirect [Mass/Vol] 0.0 mg/dL 0.0 - 0.3 mg/dL [facility] Work Phone: Free PSA/Total PSA [Mass fraction] 6.6 g/dL 6.3 - 8.2 g/dL [facility] Work Phone: Ionized CalciumOrdered By: Agusto Petty on 06-24-2021 Interpretation and review of laboratory results Abnormal [facility] Work Phone: Ionized Ca 3.80 mg/dL Low 4.30 - 5.20 mg/dL [facility] Work Phone: pH (Bld) 7.40 [pH] [facility] Work Phone: [facility] Work Phone: [facility] Work Phone: Magnesiumon 06-24-2021 Magnesium [Mass/Vol] 2.0 mg/dL Normal 1.6-2.[address] [facility] [employer] [facility] Comment on above: Result Comment: Slig htly hemolysed, interpret with caution. Performed By: #### B MP3M, PHOS3, LFT3, ICA, MG3, HEMDF ####[facility] [address] [place] [address] MagnesiumOrdered By: Michelle lauren on 06-24-2021 Magnesium [Mass/Vol] 2.0 mg/dL 1.6 - 2 .3 mg/dL [facility] Work Phone: [phone] Panel InformationOrdered By: Michelle Petty on 06-24-2021 Interpretation and review of laboratory results Abnormal [facility] Work Phone: [phone] [facility] Work Phone: [phone] [facility] Work Phone: [phone] Osmolality, UrineOrdered By: Tello Sterling on 06-24-2021 Interpretation and review of laboratory results Abnormal [facility] Work Phone: [phone] Osmolality, Ur 165 mosm/kg Low 300 - 1000 mosm/kg [facility] Work Phone: [phone] [facility] Work Phone: [phone] [facility] Work Phone: [phone] Osmolality,Urineon Osmolality,Urine 165 mosm/kg Low 300-1000 [facility] Comment on above: Performed By: #### O SMUR ####[employer] [address] [place] [address]#### NAURR ####[employer] [id number] [place] [address] POCT GlucoseOrdered By: Jessica Soni on 06-24-2021 Glucose [Mass/Vol] 189 mg/dL High 70 - 100 mg/dL [facility] Work Phone: [phone] Interpretation and review of laboratory results Abnormal [facility] Work Phone: [phone] [facility] Work Phone: [phone] [facility] Work Phone: [phone] Glucose [Mass/Vol] 148 mg/dL High 70 - 100 mg/dL [facility] Work Phone: [phone] Interpretation and review of laboratory results Abnormal [facility] Work Phone: [phone] [facility] Work Phone: [phone] [facility] Work Phone: [phone] Glucose [Mass/Vol] 222 mg/dL High 70 - 100 mg/dL [facility] Work Phone: [phone] Interpretation and review of laboratory results Abnormal [facility] Work Phone: [phone] [facility] Work Phone: [phone] [facility] Work Phone: [phone] Glucose [Mass/Vol] 214 mg/dL High 70 - 100 mg/dL [facility] Work Phone: [phone] Interpretation and review of laboratory results Abnormal [facility] Work Phone: [phone] [facility] Work Phone: [phone] [facility] Work Phone: [phone] Glucose [Mass/Vol] 144 mg/dL High 70 - 100 mg/dL [facility] Work Phone: [phone] Interpretation and review of laboratory results Abnormal [facility] Work Phone: [phone] [facility] Work Phone: [phone] [facility] Work Phone: [phone] Phosphoruson 06-24-2021 Phosphate [Mass/Vol] 3.9 mg/dL Normal 2.5-4.5 [facility] Comment on above: Result Comment: Slig htly hemolysed, interpret with caution. Performed By: #### B MP3M, PHOS3, LFT3, ICA, MG3, HEMDF ####[address] [employer] SolutionsD[place], [place] PhosphorusOrdered By: Michelle pearson on 06-24-2021 Phosphate [Mass/Vol] 3.9 mg/dL 2.5 - 4 .5 mg/dL [facility] Work Phone: [phone] Sodium, Ur Randomon 06-24-20 21 Sodium, Ur Random < 5 Low 30-90 [facility] Comment on above: Performed By: #### O SMUR ####[employer] [id number] [place] [address]#### NAURR ####[address] [employer] [place], [place] Sodium, Urine, RandomOrdered By: Tello Sterling on 06-24-2021 Interpretation and review of laboratory results Abnormal [facility] Work Phone: [phone] Sodium (U) [Moles/Vol] mmol/L Low 30 - 90 mmol/L [facility] Work Phone: [phone] [facility] Work Phone: [phone] [facility] Work Phone: [phone] Transferrinon 06-24-2021 Transferrin [Mass/Vol] 220 mg/dL Normal 206-381 [facility] Comment on above: Performed By: #### F EIBC ####[facility] [place], [place] #### TRFN ####[facility] [facility] [place] [address] TransferrinOrdered By: Kyung Wong on 06-24-2021 Transferrin [Mass/Vol] 220 mg/dL 206 - 381 mg/dL [facility] Work Phone: [phone] [facility] Work Phone: [phone] [facility] Work Phone: [phone] Add On Lab TestOrdered By: Gaudencio Wong on 06-23-2021 Add On Rejected [facility] Work Phone: [phone] [facility] Work Phone: [phone] [facility] Work Phone: [phone] Add on test from HISon 06-23 Add on test from HIS Rejected Normal [facility] Comment on above: Result Comment: No s pecimen available for addon.Need a yellow top and a green top drawn and orders put in forthe iron and tibc, and transferrin. Spoke with Michelle 11: Performed By: #### A DDON ####[facility] [place], [place] Basic Metabolic Panelon - Anion gap [Moles/Vol] 7 mmol/L Normal 3-13 [facility] Comment on above: Performed By: #### I CA, LFT3, MG3, PHOS3, BMP3M, RBCMO, HEMDF ####[facility] [place], [place] CO2 [Moles/Vol] 27 mmol/L Normal 22-30 [facility] Comment on above: Performed By: #### I CA, LFT3, MG3, PHOS3, BMP3M, RBCMO, HEMDF ####[address] [place] [address] Chloride [Moles/Vol] 98 mmol/L Normal 98-107 [facility] Comment on above: Performed By: #### I CA, LFT3, MG3, PHOS3, BMP3M, RBCMO, HEMDF ####[address] [place] [address] Sodium [Moles/Vol] 132 mmol/L Low 135-145 [facility] Comment on above: Performed By: #### I CA, LFT3, MG3, PHOS3, BMP3M, RBCMO, HEMDF ####[address] [place] Calcium [Mass/Vol] 8.4 mg/dL Normal 8.4-10.4 [facility] Comment on above: Performed By: #### I CA, LFT3, MG3, PHOS3, BMP3M, RBCMO, HEMDF ####[address] [place], [place] Glucose [Mass/Vol] 138 mg/dL High 70-100 [facility] Comment on above: Performed By: #### I CA, LFT3, MG3, PHOS3, BMP3M, RBCMO, HEMDF ####[address] [place] Urea nitrogen [Mass/Vol] 31 mg/dL High 7-20 [facility] Comment on above: Performed By: #### I CA, LFT3, MG3, PHOS3, BMP3M, RBCMO, HEMDF ####[address] [place] [address] Creatinine [Mass/Vol] 0.95 mg/dL Normal 0.52-1.25 [facility] Comment on above: Performed By: #### I CA, LFT3, MG3, PHOS3, BMP3M, RBCMO, HEMDF ####[address] [place] [address] GFR/1.73 sq M.predicted among blacks MDRD (S/P/Bld) [Vol rate/Area] 79.1 mL/min/{1.73_m2} Normal >60 [facility] Comment on above: Performed By: #### I CA, LFT3, MG3, PHOS3, BMP3M, RBCMO, HEMDF ####[email or web address] [address] [place], [place] GFR/1.73 sq M.predicted among non-blacks MDRD (S/P/Bld) [Vol rate/Area] 68.2 mL/min/{1.73_m2} Normal >60 [facility] Comment on above: Result Comment: KDIG O guidelines provide the following GFR categories:Stage GFR(ml/min/1.73 m2) TermsG1 >=90 Normal or highG2 60-89 Mildly decreased*G3a 45-59 Mildly to moderately [id number] 30-44 Moderately to severely decreasedG4 15-29 Severely [...] CA, LFT3, MG3, PHOS3, BMP3M, RBCMO, HEMDF ####[email or web address] [address] [employer] [address] [place], [place] Potassium [Moles/Vol] 3.7 mmol/L Normal 3.5-5.1 [facility] Comment on above: Performed By: #### I CA, LFT3, MG3, PHOS3, BMP3M, RBCMO, HEMDF ####[facility] [employer] [id number] [place], [place] Basic Metabolic Panel w/ Ref kaitlin to MGOrdered By: Michelle Petty on 06-23-2021 Anion gap [Moles/Vol] 7 mmol/L 3 - 13 mmol/L [facility] Work Phone: [phone] Calcium [Mass/Vol] 8.4 mg/dL 8.4 - 10. 4 mg/dL [facility] Work Phone: [phone] Chloride [Moles/Vol] 98 mmol/L 98 - 10 7 mmol/L [facility] Work Phone: [phone] CO2 [Moles/Vol] 27 mmol/L 22 - 30 mmol/L [facility] Work Phone: [phone] Creatinine [Mass/Vol] 0.95 mg/dL 0.52 - 1.25 mg/dL [facility] Work Phone: [phone] EGFR IF NonAfrican Haitian 68.2 mL/min >60 [facility] Work Phone: [phone] GFR/1.73 sq M.predicted among blacks MDRD (S/P/Bld) [Vol rate/Area] 79.1 mL/min/{1.73_m2} >60 [facility] Work Phone: [phone] Glucose [Mass/Vol] 138 mg/dL High 70 - 100 mg/dL [facility] Work Phone: [phone] Interpretation and review of laboratory results Abnormal [facility] Work Phone: [phone] Potassium [Moles/Vol] 3.7 mmol/L 3.5 - 5.1 mmol/L [facility] Work Phone: [phone] Sodium [Moles/Vol] 132 mmol/L Low 135 - 145 mmol/L [facility] Work Phone: [phone] Urea nitrogen (BldV) [Mass/Vol] 31 mg/dL High 7 - 20 mg/dL [facility] Work Phone: [phone] [facility] Work Phone: [phone] [facility] Work Phone: [phone] CBC auto differentialOrdered By: Michelle Petty on 06-23-2021 Absolute Baso # 0.1 10*3/uL 0.0 - 0.2 10*3/uL [facility] Work Phone: [phone] Absolute Eos # 0.4 10*3/uL 0.0 - 0.5 10*3/uL [facility] Work Phone: [phone] Absolute Lymph # 0.9 10*3/uL Low 1.0 - 4.3 10*3/uL [facility] Work Phone: [phone] Absolute [place] # 1.2 10*3/uL High 0.0 - 0.8 10*3/uL [facility] Work Phone: [phone] Absolute Neut # 7.0 10*3/uL 1.8 - 7.0 10*3/uL [facility] Work Phone: [phone] Basophils/100 WBC (Bld) 0.7 % 0.0 - 2.0 % [facility] Work Phone: [phone] Eosinophils/100 WBC (Bld) 4.1 % 1.0 - 6.0 % [employer] Work Phone: Granulocytes/100 WBC (Bld) 73.5 % 40.0 - 80.0 % [facility] Work Phone: Hematocrit (Bld) [Volume fraction] 32.4 % Low 35.0 - 47.0 % [facility] Work Phone: [phone] Hemoglobin.gastrointes tinal spec 1 Ql (Stl) 10.5 g/dL Low 11.7 - 16.0 g/dL [facility] Work Phone: [phone] Interpretation and review of laboratory results Abnormal [employer] Work Phone: [phone] Lymphocytes/100 WBC (Bld) 9.1 % Low 20.0 - 40.0 % [facility] Work Phone: MCH (RBC) [Entitic mass] 24.1 pg Low 26.0 - 34.0 pg [facility] Work Phone: MCHC (RBC) [Mass/Vol] 32.3 % 32.0 - 36.0 % [facility] Work Phone: [phone] MCV (RBC) [Entitic vol] 74.8 fL Low 79.0 - 98.0 fL [facility] Work Phone: [phone] Monocytes/100 WBC (Bld) 12.6 % High 2.0 - 10.0 % [facility] Work Phone: Platelet distribution width (Bld) [Ratio] 23.9 % High 11.5 - 14.5 % [facility] Work Phone: [phone] Platelet mean volume (Bld) [Entitic vol] 8.7 fL 7.4 - 10.4 fL [facility] Work Phone: [phone] Platelets (Bld) [#/Vol] 148 10*3/uL 140 - 440 10*3/uL [employer] Work Phone: [phone] RBC (Bld) [#/Vol] 4.33 10*6/uL 3.80 - 5.2 0 10*6/uL [facility] Work Phone: [phone] WBC (Bld) [#/Vol] 9.5 10*3/uL 3.6 - 10.7 10*3/uL [facility] Work Phone: [phone] [facility] Work Phone: [phone] [facility] Work Phone: [phone] Calcium,Ionizedon 06-23-2021 Ionized Ca,Measured 3.90 mg/dL Low 4.30-5.[address] [facility] [employer] Comment on above: Performed By: #### I CA, LFT3, MG3, PHOS3, BMP3M, RBCMO, HEMDF ####[employer] [employer] [place], [place] pH, Ionized Calcium 7.56 High 7.31-7.46 [facility] [employer] Comment on above: Performed By: #### I CA, LFT3, MG3, PHOS3, BMP3M, RBCMO, HEMDF ####[employer] [employer] [place], [place] Glucose,Bedsideon 06-23-2021 Glucose [Mass/Vol] 199 mg/dL High 70-[address] [facility] [employer] Comment on above: Result Comment: Test performed by glucose meter. Results may be 10%-15% lowerthan serum/plasma values. (CLIA ID [id number]) Performed By: #### B GLU ####[employer] [employer] [place], [place] Hemogram w/ Autodiffon 06-23 Abs Baso Cnt 0.1 10*3/uL Normal 0.0-0.2 [facility] Comment on above: Performed By: #### I CA, LFT3, MG3, PHOS3, BMP3M, RBCMO, HEMDF ####[address] Abs Neutrophile Cnt 7.0 10*3/uL Normal 1.8-7.0 [facility] Comment on above: Performed By: #### I CA, LFT3, MG3, PHOS3, BMP3M, RBCMO, HEMDF ####[address] Basophils/100 WBC (Bld) 0.7 % Normal 0.0-2.0 [facility] Comment on above: Performed By: #### I CA, LFT3, MG3, PHOS3, BMP3M, RBCMO, HEMDF ####[address] Eosinophils (Bld) [#/Vol] 0.4 10*3/uL Normal 0.0-0.5 [facility] Comment on above: Performed By: #### I CA, LFT3, MG3, PHOS3, BMP3M, RBCMO, HEMDF ####[address] Eosinophils/100 WBC (Bld) 4.1 % Normal 1.0-6.0 [facility] Comment on above: Performed By: #### I CA, LFT3, MG3, PHOS3, BMP3M, RBCMO, HEMDF ####[address] Erythrocyte distribution width (RBC) [Ratio] 23.9 % High 11.5-14.5 [facility] Comment on above: Performed By: #### I CA, LFT3, MG3, PHOS3, BMP3M, RBCMO, HEMDF ####[address] Granulocytes/100 WBC (Bld) 73.5 % Normal 40.0-80.0 [facility] Comment on above: Performed By: #### I CA, LFT3, MG3, PHOS3, BMP3M, RBCMO, HEMDF ####[address] Hematocrit (Bld) [Volume fraction] 32.4 % Low 35.0-47.0 [facility] Comment on above: Performed By: #### I CA, LFT3, MG3, PHOS3, BMP3M, RBCMO, HEMDF ####[address] [place], [place] Hemoglobin (Bld) [Mass/Vol] 10.5 g/dL Low 11.7-16.0 [facility] Comment on above: Performed By: #### I CA, LFT3, MG3, PHOS3, BMP3M, RBCMO, HEMDF ####[address] [place], [place] Lymphocytes (Bld) [#/Vol] 0.9 10*3/uL Low 1.0-4.3 [facility] Comment on above: Performed By: #### I CA, LFT3, MG3, PHOS3, BMP3M, RBCMO, HEMDF ####[address] Lymphocytes/100 WBC (Bld) 9.1 % Low 20.0-40.0 [facility] Comment on above: Performed By: #### I CA, LFT3, MG3, PHOS3, BMP3M, RBCMO, HEMDF ####[address] [place], [place] MCH (RBC) [Entitic mass] 24.1 pg Low 26.0-34.0 [facility] Comment on above: Performed By: #### I CA, LFT3, MG3, PHOS3, BMP3M, RBCMO, HEMDF ####[address] [place], [place] MCHC 32.3 % Normal 32.0-36.0 [facility] Comment on above: Performed By: #### I CA, LFT3, MG3, PHOS3, BMP3M, RBCMO, HEMDF ####[address], [place] MCV (RBC) [Entitic vol] 74.8 fL Low 79.0-98.0 [facility] Comment on above: Performed By: #### I CA, LFT3, MG3, PHOS3, BMP3M, RBCMO, HEMDF ####[address] [place], [place] Monocytes (Bld) [#/Vol] 1.2 10*3/uL High 0.0-0.8 [facility] Comment on above: Performed By: #### I CA, LFT3, MG3, PHOS3, BMP3M, RBCMO, HEMDF ####[address] Monocytes/100 WBC (Bld) 12.6 % High 2.0-10.0 [facility] Comment on above: Performed By: #### I CA, LFT3, MG3, PHOS3, BMP3M, RBCMO, HEMDF ####[address] Platelet mean volume (Bld) [Entitic vol] 8.7 fL Normal 7.4-10.4 [facility] Comment on above: Performed By: #### I CA, LFT3, MG3, PHOS3, BMP3M, RBCMO, HEMDF ####[id number] [place], [place] Platelets (Bld) [#/Vol] 148 10*3/uL Normal 140-440 [facility] Comment on above: Performed By: #### I CA, LFT3, MG3, PHOS3, BMP3M, RBCMO, HEMDF ####[address] RBC (Bld) [#/Vol] 4.33 10*6/uL Normal 3.80-5.20 [facility] Comment on above: Performed By: #### I CA, LFT3, MG3, PHOS3, BMP3M, RBCMO, HEMDF ####[address] WBC (Bld) [#/Vol] 9.5 10*3/uL Normal 3.6-10.7 [facility] Comment on above: Performed By: #### I CA, LFT3, MG3, PHOS3, BMP3M, RBCMO, HEMDF ####[id number] [place], [place] Hepatic Functionon 1 ALT [Catalytic activity/Vol] 72 U/L High 0-34 [facility] Comment on above: Result Comment: The ALT test is performed by an updated assay method.Please note that the reference intervals have beenchanged and are now sex specific. Performed By: #### I CA, LFT3, MG3, PHOS3, BMP3M, RBCMO, HEMDF ####[id number] [place], [place] ALP [Catalytic activity/Vol] 116 U/L Normal 38-126 [facility] Comment on above: Performed By: #### I CA, LFT3, MG3, PHOS3, BMP3M, RBCMO, HEMDF ####[address] AST [Catalytic activity/Vol] 50 U/L High 15-46 [facility] Comment on above: Performed By: #### I CA, LFT3, MG3, PHOS3, BMP3M, RBCMO, HEMDF ####[address] [place], [place] Bilirubin [Mass/Vol] 0.6 mg/dL Normal 0.2-1.3 [facility] Comment on above: Performed By: #### I CA, LFT3, MG3, PHOS3, BMP3M, RBCMO, HEMDF ####[address] [place], [place] Bilirubin.indirect [Mass/Vol] 0.0 mg/dL Normal 0.0-0.3 [facility] Comment on above: Performed By: #### I CA, LFT3, MG3, PHOS3, BMP3M, RBCMO, HEMDF ####[address] [place] [address] Protein [Mass/Vol] 6.3 g/dL Normal 6.3-8.2 [facility] Comment on above: Performed By: #### I CA, LFT3, MG3, PHOS3, BMP3M, RBCMO, HEMDF ####[facility] [employer] [id number] [place] [address] Albumin [Mass/Vol] 2.9 g/dL Low 3.5-5.0 [facility] Comment on above: Performed By: #### I CA, LFT3, MG3, PHOS3, BMP3M, RBCMO, HEMDF ####[facility] [employer] [id number] [place] [address] Hepatic Function PanelOrdere d By: Michelle Petty on 06-23-2021 Albumin [Mass/Vol] 2.9 g/dL Low 3.5 - 5.0 g/dL [facility] Work Phone: [phone] ALP (Bld) [Catalytic activity/Vol] 116 U/L 38 - 126 U/L [facility] Work Phone: [phone] [Catalytic activity/Vol] 72 U/L High 0 - 34 U/L [facility] Work Phone: [phone] AST [Catalytic activity/Vol] 50 U/L High 15 - 46 U/L [facility] Work Phone: [phone] Bilirubin [Mass/Vol] 0.6 mg/dL 0.2 - 1 .3 mg/dL [facility] Work Phone: Bilirubin.indirect [Mass/Vol] 0.0 mg/dL 0.0 - 0.3 mg/dL [facility] Work Phone: [phone] Free PSA/Total PSA [Mass fraction] 6.3 g/dL 6.3 - 8.2 g/dL [facility] Work Phone: [phone] Interpretation and review of laboratory results Abnormal [facility] Work Phone: [phone] Ionized CalciumOrdered By: Agusto Petty on 06-23-2021 Interpretation and review of laboratory results Abnormal [facility] Work Phone: [phone] Ionized Ca 3.90 mg/dL Low 4.30 - 5.20 mg/dL [facility] Work Phone: 1 pH (Bld) 7.56 [pH] High [facility] Work Phone: 1 [facility] Work Phone: 1 [facility] Work Phone: [phone] Iron AND TIBCon 06-23-2021 Saturation 10 % Low 15-50 [facility] Comment on above: Performed By: #### F EIBC ####[facility] [id number] [place] [address]#### TRFN ####[facility] [id number] [place] [address] Total Iron Binding Cap. 273 ug/dL Normal 261-497 [facility] Comment on above: Performed By: #### F EIBC ####[facility] [id number] [place] [address]#### TRFN ####[facility] [id number] [place] [address] Iron, Total 27 ug/dL Low 37-170 [facility] Comment on above: Performed By: #### F EIBC ####[facility] [id number] [place] [address]#### TRFN ####[facility] [id number] [place] [address] Iron and TIBCOrdered By: Jami Abdalla on 06-23-2021 Interpretation and review of laboratory results Abnormal [facility] Work Phone: [phone] Iron [Mass/Vol] 27 ug/dL Low 37 - 170 ug/dL [facility] Work Phone: [phone] Sat 10 % Low 15 - 50 % [facility] Work Phone: 1 TIBC 273 ug/dL 261 - 497 ug/dL [facility] Work Phone: 1 [facility] Work Phone: 1 [facility] Work Phone: [phone] Magnesiumon 06-23-2021 Magnesium [Mass/Vol] 1.9 mg/dL Normal 1.6-2.3 [facility] Comment on above: Performed By: #### I CA, LFT3, MG3, PHOS3, BMP3M, RBCMO, HEMDF ####[facility] [employer] [id number] [place] [address] MagnesiumOrdered By: Michelle lauren on 06-23-2021 Magnesium [...] 06-23-2021 Phosphate [Mass/Vol] 3.4 mg/dL Normal 2.5-4.[address] [facility] Comment on above: Performed By: #### I CA, LFT3, MG3, PHOS3, BMP3M, RBCMO, HEMDF ####[facility] [employer] [id number] [place] [address] PhosphorusOrdered By: Michelle pearson on 06-23-2021 Phosphate [Mass/Vol] 3.4 mg/dL 2.5 - 4 .5 mg/dL [facility] Work Phone: [phone] RBC MORPHOLOGYOrdered By: Samuel Petty on 06-23-2021 Anisocytosis Ql (Bld) Slight [facility] Work Phone: [phone] Elliptocytes Slight [facility] Work Phone: 22 Microcytosis Slight [facility] Work Phone: Ovalocytes Slight [facility] Work Phone: [phone] Poikilocytes Slight [facility] Work Phone: 22 Polychromasia Slight [facility] Work Phone: [phone] RBC (Bld) [#/Vol] ABNORMAL [facility] Work Phone: [phone] [facility] Work Phone: [phone] [facility] Work Phone: [phone] RBC Morphologyon 06-23-2021 Anisocytosis Ql (Bld) Slight Normal [facility] Comment on above: Performed By: #### I CA, LFT3, MG3, PHOS3, BMP3M, RBCMO, HEMDF ####[address] [place], [place] Elliptocytes Slight Normal [facility] Comment on above: Performed By: #### I CA, LFT3, MG3, PHOS3, BMP3M, RBCMO, HEMDF ####[address] Microcytosis Slight Normal [facility] Comment on above: Performed By: #### I CA, LFT3, MG3, PHOS3, BMP3M, RBCMO, HEMDF ####[address] Ovalocytes Slight Normal [facility] Comment on above: Performed By: #### I CA, LFT3, MG3, PHOS3, BMP3M, RBCMO, HEMDF ####[address] Poikilocytosis Slight Normal [facility] Comment on above: Performed By: #### I CA, LFT3, MG3, PHOS3, BMP3M, RBCMO, HEMDF ####[address] Polychromasia Slight Normal [facility] Comment on above: Performed By: #### I CA, LFT3, MG3, PHOS3, BMP3M, RBCMO, HEMDF ####[address] RBC morphology finding Nom (Bld) ABNORMAL Normal [facility] Comment on above: Performed By: #### I CA, LFT3, MG3, PHOS3, BMP3M, RBCMO, HEMDF ####[facility] [place], [place] Basic Metabolic Panelon 07-2 Calcium [Mass/Vol] 9.0 mg/dL Normal 8.4-10.4 [facility] Comment on above: Performed By: #### L FT3, HEMDF, BMP3M, MG3, ICA, PHOS3 ####[address] [place], [place] Anion gap [Moles/Vol] 7 mmol/L Normal 3-13 [facility] Comment on above: Performed By: #### L FT3, HEMDF, BMP3M, MG3, ICA, PHOS3 ####[address] [place], [place] CO2 [Moles/Vol] 30 mmol/L Normal 22-30 [facility] Comment on above: Performed By: #### L FT3, HEMDF, BMP3M, MG3, ICA, PHOS3 ####[address] [place], [place] Creatinine [Mass/Vol] 0.66 mg/dL Normal 0.52-1.25 [facility] Comment on above: Performed By: #### L FT3, HEMDF, BMP3M, MG3, ICA, PHOS3 ####[address] [place], [place] eGFR OTHER > 90.0 Normal >60 [facility] Comment on above: Result Comment: KDIG O guidelines provide the following GFR categories:Stage GFR(ml/min/1.73 m2) TermsG1 >=90 Normal or highG2 60-89 Mildly decreased*G3a 45-59 Mildly to moderately [id number] 30-44 Moderately to severely decreasedG4 15-29 Severely [...] L FT3, HEMDF, BMP3M, MG3, ICA, PHOS3 ####[address] [place], [place] GFR/1.73 sq M.predicted among blacks MDRD (S/P/Bld) [Vol rate/Area] mL/min/{1.73_m2} Normal >60 [facility] Comment on above: Performed By: #### L FT3, HEMDF, BMP3M, MG3, ICA, PHOS3 ####[address] [place], [place] Glucose [Mass/Vol] 147 mg/dL High 70-100 [facility] Comment on above: Performed By: #### L FT3, HEMDF, BMP3M, MG3, ICA, PHOS3 ####[address] [place], [place] Urea nitrogen [Mass/Vol] 31 mg/dL High 7-20 [facility] Comment on above: Performed By: #### L FT3, HEMDF, BMP3M, MG3, ICA, PHOS3 ####[address] [place], [place] Potassium [Moles/Vol] 3.5 mmol/L Normal 3.5-5.1 [facility] Comment on above: Performed By: #### L FT3, HEMDF, BMP3M, MG3, ICA, PHOS3 ####[address] [place], [place] Sodium [Moles/Vol] 132 mmol/L Low 135-145 [facility] Comment on above: Performed By: #### L FT3, HEMDF, BMP3M, MG3, ICA, PHOS3 ####[address] [place], [place] Chloride [Moles/Vol] 96 mmol/L Low 98-107 [facility] Comment on above: Performed By: #### L FT3, HEMDF, BMP3M, MG3, ICA, PHOS3 ####[address] CR Chest Portableon 06-22-20 21 CR Chest Portable [facility] Calcium,Ionizedon 06-22-2021 Ionized Ca,Measured 4.30 mg/dL Normal 4.30-5.20 [facility] Comment on above: Performed By: #### L FT3, HEMDF, BMP3M, MG3, ICA, PHOS3 ####[facility] [employer] [address] pH, Ionized Calcium 7.41 Normal 7.31-7.46 [facility] Comment on above: Performed By: #### L FT3, HEMDF, BMP3M, MG3, ICA, PHOS3 ####[facility] [employer] [address] Glucose,Bedsideon 06-22-2021 Glucose [Mass/Vol] 192 mg/dL High 70-100 [facility] Comment on above: Result Comment: Test performed by glucose meter. Results may be 10%-15% lowerthan serum/plasma values. (CLIA ID [id number]) Performed By: #### B GLU ####[facility] [employer] [id number] [place], [place] Glucose [Mass/Vol] 141 mg/dL [facility] 70-100 [facility] Comment on above: Result Comment: print support specialist Notified;Test performed by glucose meter. Results may be 10%-15% lowerthan serum/plasma values. (CLIA ID [id number]) Performed By: #### B GLU ####[facility] [employer] [address] Hemogram w/ Autodiffon 06-22 Abs Baso Cnt 0.0 10*3/uL Normal 0.0-0.2 [facility] Comment on above: Performed By: #### L FT3, HEMDF, BMP3M, MG3, ICA, PHOS3 ####[facility] [employer] [address] Abs Neutrophile Cnt 6.4 10*3/uL Normal 1.8-7.0 [facility] Comment on above: Performed By: #### L FT3, HEMDF, BMP3M, MG3, ICA, PHOS3 ####[address] [place], [place] Basophils/100 WBC (Bld) 0.1 % Normal 0.0-2.0 [facility] Comment on above: Performed By: #### L FT3, HEMDF, BMP3M, MG3, ICA, PHOS3 ####[address] Eosinophils (Bld) [#/Vol] 0.4 10*3/uL Normal 0.0-0.5 [facility] Comment on above: Performed By: #### L FT3, HEMDF, BMP3M, MG3, ICA, PHOS3 ####[address] Eosinophils/100 WBC (Bld) 4.3 % Normal 1.0-6.0 [facility] Comment on above: Performed By: #### L FT3, HEMDF, BMP3M, MG3, ICA, PHOS3 ####[address] [place], [place] Erythrocyte distribution width (RBC) [Ratio] 23.2 % High 11.5-14.5 [facility] Comment on above: Performed By: #### L FT3, HEMDF, BMP3M, MG3, ICA, PHOS3 ####[address] Granulocytes/100 WBC (Bld) 74.3 % Normal 40.0-80.0 [facility] Comment on above: Performed By: #### L FT3, HEMDF, BMP3M, MG3, ICA, PHOS3 ####[address] [place], [place] Hematocrit (Bld) [Volume fraction] 34.7 % Low 35.0-47.0 [facility] Comment on above: Performed By: #### L FT3, HEMDF, BMP3M, MG3, ICA, PHOS3 ####[address] Hemoglobin (Bld) [Mass/Vol] 10.8 g/dL Low 11.7-16.0 [facility] Comment on above: Performed By: #### L FT3, HEMDF, BMP3M, MG3, ICA, PHOS3 ####[address] Lymphocytes (Bld) [#/Vol] 0.8 10*3/uL Low 1.0-4.3 [facility] Comment on above: Performed By: #### L FT3, HEMDF, BMP3M, MG3, ICA, PHOS3 ####[address] Lymphocytes/100 WBC (Bld) 9.0 % Low 20.0-40.0 [facility] Comment on above: Performed By: #### L FT3, HEMDF, BMP3M, MG3, ICA, PHOS3 ####[address] MCH (RBC) [Entitic mass] 23.5 pg Low 26.0-34.0 [facility] Comment on above: Performed By: #### L FT3, HEMDF, BMP3M, MG3, ICA, PHOS3 ####[address] [place], [place] MCHC 31.2 % Low 32.0-36.0 [facility] Comment on above: Performed By: #### L FT3, HEMDF, BMP3M, MG3, ICA, PHOS3 ####[address] [place], [place] MCV (RBC) [Entitic vol] 75.5 fL Low 79.0-98.0 [facility] Comment on above: Performed By: #### L FT3, HEMDF, BMP3M, MG3, ICA, PHOS3 ####[address] [place], [place] Monocytes (Bld) [#/Vol] 1.1 10*3/uL High 0.0-0.8 [facility] Comment on above: Performed By: #### L FT3, HEMDF, BMP3M, MG3, ICA, PHOS3 ####[facility] [place], [place] Monocytes/100 WBC (Bld) 12.3 % High 2.0-10.0 [facility] Comment on above: Performed By: #### L FT3, HEMDF, BMP3M, MG3, ICA, PHOS3 ####[facility] [employer] [id number] [place], [place] Platelet mean volume (Bld) [Entitic vol] 8.9 fL Normal 7.4-10.4 [facility] Comment on above: Performed By: #### L FT3, HEMDF, BMP3M, MG3, ICA, PHOS3 ####[facility] [employer] [id number] [place], [place] Platelets (Bld) [#/Vol] 123 10*3/uL Low 140-440 [facility] Comment on above: Performed By: #### L FT3, HEMDF, BMP3M, MG3, ICA, PHOS3 ####[facility] [employer] [id number] [place], [place] RBC (Bld) [#/Vol] 4.60 10*6/uL Normal 3.80-5.20 [facility] Comment on above: Performed By: #### L FT3, HEMDF, BMP3M, MG3, ICA, PHOS3 ####[facility] [employer] [id number] [place], [place] WBC (Bld) [#/Vol] 8.7 10*3/uL Normal 3.6-10.7 [facility] Comment on above: Performed By: #### L FT3, HEMDF, BMP3M, MG3, ICA, PHOS3 ####[facility] [employer] [id number] [place], [place] Hepatic Functionon 1 ALT [Catalytic activity/Vol] 79 U/L High 0-34 [facility] Comment on above: Result Comment: The ALT test is performed by an updated assay method.Please note that the reference intervals have beenchanged and are now sex specific. Performed By: #### L FT3, HEMDF, BMP3M, MG3, ICA, PHOS3 ####[address] [place], [place] ALP [Catalytic activity/Vol] 127 U/L High 38-126 [facility] Comment on above: Performed By: #### L FT3, HEMDF, BMP3M, MG3, ICA, PHOS3 ####[address] AST [Catalytic activity/Vol] 62 U/L High 15-46 [facility] Comment on above: Performed By: #### L FT3, HEMDF, BMP3M, MG3, ICA, PHOS3 ####[address] [place], [place] Bilirubin [Mass/Vol] 0.8 mg/dL Normal 0.2-1.3 [facility] Comment on above: Performed By: #### L FT3, HEMDF, BMP3M, MG3, ICA, PHOS3 ####[address] Bilirubin.indirect [Mass/Vol] 0.0 mg/dL Normal 0.0-0.3 [facility] Comment on above: Performed By: #### L FT3, HEMDF, BMP3M, MG3, ICA, PHOS3 ####[address] Protein [Mass/Vol] 6.9 g/dL Normal 6.3-8.2 [facility] Comment on above: Performed By: #### L FT3, HEMDF, BMP3M, MG3, ICA, PHOS3 ####[address] Albumin [Mass/Vol] 3.1 g/dL Low 3.5-5.0 [facility] Comment on above: Performed By: #### L FT3, HEMDF, BMP3M, MG3, ICA, PHOS3 ####[address] [place], [place] Magnesiumon 06-22-2021 Magnesium [Mass/Vol] 2.1 mg/dL Normal 1.6-2.3 [facility] Comment on above: Performed By: #### L FT3, HEMDF, BMP3M, MG3, ICA, PHOS3 ####[address] [place], [place] POCT GlucoseOrdered By: Jessica Soni on 06-22-2021 Glucose [Mass/Vol] 192 mg/dL High 70 - 100 mg/dL [facility] Work Phone: [phone] Interpretation and review of laboratory results Abnormal [facility] Work Phone: [phone] [facility] Work Phone: [phone] [facility] Work Phone: Phosphoruson 06-22-2021 Phosphate [Mass/Vol] 3.5 mg/dL Normal 2.5-4.5 [facility] Comment on above: Performed By: #### L FT3, HEMDF, BMP3M, MG3, ICA, PHOS3 ####[address] [place], [place] XR CHEST PORTABLEOrdered By: Checo Kirk on 06-22-2021 [facility] Work Phone: [facility] Work Phone: [facility] Work Phone: Basic Metabolic Panelon 05-31 Anion gap [Moles/Vol] 5 mmol/L Normal 3-13 [facility] Comment on above: Performed By: #### M G3, HEMDF, FERR3, PHOS3, ICA, LDH3, BMP3M, CRP2, LFT3, DDI2 ####[address] [place], [place] Calcium [Mass/Vol] 8.3 mg/dL Low 8.4-10.4 [facility] Comment on above: Performed By: #### M G3, HEMDF, FERR3, PHOS3, ICA, LDH3, BMP3M, CRP2, LFT3, DDI2 ####[address] [place], [place] CO2 [Moles/Vol] 31 mmol/L High 22-30 [facility] Comment on above: Performed By: #### M G3, HEMDF, FERR3, PHOS3, ICA, LDH3, BMP3M, CRP2, LFT3, DDI2 ####[address] [place], [place] Glucose [Mass/Vol] 139 mg/dL High 70-100 [facility] Comment on above: Performed By: #### M G3, HEMDF, FERR3, PHOS3, ICA, LDH3, BMP3M, CRP2, LFT3, DDI2 ####[address] [place], [place] Urea nitrogen [Mass/Vol] 32 mg/dL High 7-20 [facility] Comment on above: Performed By: #### M G3, HEMDF, FERR3, PHOS3, ICA, LDH3, BMP3M, CRP2, LFT3, DDI2 ####[address] [place], [place] Creatinine [Mass/Vol] 0.52 mg/dL Normal 0.52-1.25 [facility] Comment on above: Performed By: #### M G3, HEMDF, FERR3, PHOS3, ICA, LDH3, BMP3M, CRP2, LFT3, DDI2 ####[address] [place], [place] eGFR OTHER > 90.0 Normal >60 [facility] Comment on above: Result Comment: KDIG O guidelines provide the following GFR categories:Stage GFR(ml/min/1.73 m2) TermsG1 >=90 Normal or highG2 60-89 Mildly decreased*G3a 45-59 Mildly to moderately doluramxiS7y 30-44 Moderately to severely decreasedG4 15-29 Severely [...] PHOS3, ICA, LDH3, BMP3M, CRP2, LFT3, DDI2 ####[address] [place], [place] GFR/1.73 sq M.predicted among blacks MDRD (S/P/Bld) [Vol rate/Area] mL/min/{1.73_m2} Normal >60 [facility] Comment on above: Performed By: #### M G3, HEMDF, FERR3, PHOS3, ICA, LDH3, BMP3M, CRP2, LFT3, DDI2 ####[address] [place], [place] Potassium [Moles/Vol] 4.1 mmol/L Normal 3.5-5.1 [facility] Comment on above: Result Comment: Slig htly hemolysed, interpret with caution. Performed By: #### M G3, HEMDF, FERR3, PHOS3, ICA, LDH3, BMP3M, CRP2, LFT3, DDI2 ####[address] [place], [place] Sodium [Moles/Vol] 134 mmol/L Low 135-145 [facility] Comment on above: Performed By: #### M G3, HEMDF, FERR3, PHOS3, ICA, LDH3, BMP3M, CRP2, LFT3, DDI2 ####[address] [place], [place] Chloride [Moles/Vol] 99 mmol/L Normal 98-107 [facility] Comment on above: Performed By: #### M G3, HEMDF, FERR3, PHOS3, ICA, LDH3, BMP3M, CRP2, LFT3, DDI2 ####[address] [facility] [place] C-Reactive Proteinon 021 CRP [Mass/Vol] 61.5 mg/L High 0.0-6.0 [facility] Comment on above: Result Comment: . Performed By: #### M G3, HEMDF, FERR3, PHOS3, ICA, LDH3, BMP3M, CRP2, LFT3, DDI2 ####[address] [place], [place] Calcium,Ionizedon 06-21-2021 Ionized Ca,Measured 3.80 mg/dL Low 4.30-5.20 [facility] Comment on above: Performed By: #### M G3, HEMDF, FERR3, PHOS3, ICA, LDH3, BMP3M, CRP2, LFT3, DDI2 ####[address] pH, Ionized Calcium 7.46 Normal 7.31-7.46 [facility] Comment on above: Performed By: #### M G3, HEMDF, FERR3, PHOS3, ICA, LDH3, BMP3M, CRP2, LFT3, DDI2 ####[address] [place], [place] D-Dimer, Innovanceon 021 D-Dimer, [employer] 11.91 mg/L High <0.19-0.50 [facility] Comment on above: Result Comment: Inno carrington D-Dimer values of <0.50 mg/L FEU can be used incombination with a pre-test probability model (e.g. Well's)to exclude pulmonary embolism (PE) disease, as well as jodi in the diagnosis of deep vein thrombosis (DVT). Performed By: #### M G3, HEMDF, FERR3, PHOS3, ICA, LDH3, BMP3M, CRP2, LFT3, DDI2 ####[address] [place], [place] Ferritinon 06-21-2021 Ferritin [Mass/Vol] 358 ng/mL High 8-252 [facility] Comment on above: Performed By: #### M G3, HEMDF, FERR3, PHOS3, ICA, LDH3, BMP3M, CRP2, LFT3, DDI2 ####[address] [place], [place] Glucose,Bedsideon 06-21-2021 Glucose [Mass/Vol] 155 mg/dL High 70-100 [facility] Comment on above: Result Comment: Test performed by glucose meter. Results may be 10%-15% lowerthan serum/plasma values. (CLIA ID [id number]) Performed By: #### B GLU ####[address] Glucose [Mass/Vol] 134 mg/dL High 70-100 [facility] Comment on above: Result Comment: Test performed by glucose meter. Results may be 10%-15% lowerthan serum/plasma values. (CLIA ID [id number]) Performed By: #### B GLU ####[address] Hemogram w/ Autodiffon 06-21 Abs Baso Cnt 0.0 10*3/uL Normal 0.0-0.2 [facility] Comment on above: Performed By: #### M G3, HEMDF, FERR3, PHOS3, ICA, LDH3, BMP3M, CRP2, LFT3, DDI2 ####[address] Abs Neutrophile Cnt 10.0 10*3/uL High 1.8-7.0 [facility] Comment on above: Performed By: #### M G3, HEMDF, FERR3, PHOS3, ICA, LDH3, BMP3M, CRP2, LFT3, DDI2 ####[address] Basophils/100 WBC (Bld) 0.3 % Normal 0.0-2.0 [facility] Comment on above: Performed By: #### M G3, HEMDF, FERR3, PHOS3, ICA, LDH3, BMP3M, CRP2, LFT3, DDI2 ####[facility] [id number] [place], [place] Eosinophils (Bld) [#/Vol] 0.2 10*3/uL Normal 0.0-0.5 [facility] Comment on above: Performed By: #### M G3, HEMDF, FERR3, PHOS3, ICA, LDH3, BMP3M, CRP2, LFT3, DDI2 ####[address] Eosinophils/100 WBC (Bld) 1.8 % Normal 1.0-6.0 [facility] Comment on above: Performed By: #### M G3, HEMDF, FERR3, PHOS3, ICA, LDH3, BMP3M, CRP2, LFT3, DDI2 ####[address] Erythrocyte distribution width (RBC) [Ratio] 23.4 % High 11.5-14.5 [facility] Comment on above: Performed By: #### M G3, HEMDF, FERR3, PHOS3, ICA, LDH3, BMP3M, CRP2, LFT3, DDI2 ####[address] Granulocytes/100 WBC (Bld) 82.1 % High 40.0-80.0 [facility] Comment on above: Performed By: #### M G3, HEMDF, FERR3, PHOS3, ICA, LDH3, BMP3M, CRP2, LFT3, DDI2 ####[address] Hematocrit (Bld) [Volume fraction] 32.0 % Low 35.0-47.0 [facility] Comment on above: Performed By: #### M G3, HEMDF, FERR3, PHOS3, ICA, LDH3, BMP3M, CRP2, LFT3, DDI2 ####[address] Hemoglobin (Bld) [Mass/Vol] 10.2 g/dL Low 11.7-16.0 [facility] Comment on above: Performed By: #### M G3, HEMDF, FERR3, PHOS3, ICA, LDH3, BMP3M, CRP2, LFT3, DDI2 ####[address] Lymphocytes (Bld) [#/Vol] 0.8 10*3/uL Low 1.0-4.3 [facility] Comment on above: Performed By: #### M G3, HEMDF, FERR3, PHOS3, ICA, LDH3, BMP3M, CRP2, LFT3, DDI2 ####[address] Lymphocytes/100 WBC (Bld) 6.4 % Low 20.0-40.0 [facility] Comment on above: Performed By: #### M G3, HEMDF, FERR3, PHOS3, ICA, LDH3, BMP3M, CRP2, LFT3, DDI2 ####[address] MCH (RBC) [Entitic mass] 23.5 pg Low 26.0-34.0 [facility] Comment on above: Performed By: #### M G3, HEMDF, FERR3, PHOS3, ICA, LDH3, BMP3M, CRP2, LFT3, DDI2 ####[address] MCHC 31.7 % Low 32.0-36.0 [facility] Comment on above: Performed By: #### M G3, HEMDF, FERR3, PHOS3, ICA, LDH3, BMP3M, CRP2, LFT3, DDI2 ####[address] MCV (RBC) [Entitic vol] 74.2 fL Low 79.0-98.0 [facility] Comment on above: Performed By: #### M G3, HEMDF, FERR3, PHOS3, ICA, LDH3, BMP3M, CRP2, LFT3, DDI2 ####[address] Monocytes (Bld) [#/Vol] 1.2 10*3/uL High 0.0-0.8 [facility] Comment on above: Performed By: #### M G3, HEMDF, FERR3, PHOS3, ICA, LDH3, BMP3M, CRP2, LFT3, DDI2 ####[id number] [place] [address] Monocytes/100 WBC (Bld) 9.4 % Normal 2.0-10.0 [facility] Comment on above: Performed By: #### M G3, HEMDF, FERR3, PHOS3, ICA, LDH3, BMP3M, CRP2, LFT3, DDI2 ####[address] [place], [place] Platelet mean volume (Bld) [Entitic vol] 9.4 fL Normal 7.4-10.4 [facility] Comment on above: Performed By: #### M G3, HEMDF, FERR3, PHOS3, ICA, LDH3, BMP3M, CRP2, LFT3, DDI2 ####[address] Platelets (Bld) [#/Vol] 125 10*3/uL Low 140-440 [facility] Comment on above: Performed By: #### M G3, HEMDF, FERR3, PHOS3, ICA, LDH3, BMP3M, CRP2, LFT3, DDI2 ####[address] RBC (Bld) [#/Vol] 4.32 10*6/uL Normal 3.80-5.20 [facility] Comment on above: Performed By: #### M G3, HEMDF, FERR3, PHOS3, ICA, LDH3, BMP3M, CRP2, LFT3, DDI2 ####[address] [place], [place] WBC (Bld) [#/Vol] 12.2 10*3/uL High 3.6-10.7 [facility] Comment on above: Performed By: #### M G3, HEMDF, FERR3, PHOS3, ICA, LDH3, BMP3M, CRP2, LFT3, DDI2 ####[address] [place], [place] Hepatic Functionon 1 ALP [Catalytic activity/Vol] 149 U/L High 38-126 [facility] Comment on above: Result Comment: Slig htly hemolysed, interpret with caution. Performed By: #### M G3, HEMDF, FERR3, PHOS3, ICA, LDH3, BMP3M, CRP2, LFT3, DDI2 ####[address] [place], [place] ALT [Catalytic activity/Vol] 71 U/L High 0-34 [facility] Comment on above: Result Comment: The ALT test is performed by an updated assay method.Please note that the reference intervals have beenchanged and are now sex specific. Performed By: #### M G3, HEMDF, FERR3, PHOS3, ICA, LDH3, BMP3M, CRP2, LFT3, DDI2 ####[address] AST [Catalytic activity/Vol] 77 U/L High 15-46 [facility] Comment on above: Result Comment: Slig htly hemolysed, interpret with caution. Performed By: #### M G3, HEMDF, FERR3, PHOS3, ICA, LDH3, BMP3M, CRP2, LFT3, DDI2 ####[address] Bilirubin [Mass/Vol] 1.0 mg/dL Normal 0.2-1.3 [facility] Comment on above: Performed By: #### M G3, HEMDF, FERR3, PHOS3, ICA, LDH3, BMP3M, CRP2, LFT3, DDI2 ####[address] [place], [place] Protein [Mass/Vol] 6.5 g/dL Normal 6.3-8.2 [facility] Comment on above: Performed By: #### M G3, HEMDF, FERR3, PHOS3, ICA, LDH3, BMP3M, CRP2, LFT3, DDI2 ####[address] Bilirubin.indirect [Mass/Vol] 0.0 mg/dL Normal 0.0-0.3 [facility] Comment on above: Performed By: #### M G3, HEMDF, FERR3, PHOS3, ICA, LDH3, BMP3M, CRP2, LFT3, DDI2 ####[address] Albumin [Mass/Vol] 3.0 g/dL Low 3.5-5.0 [facility] Comment on above: Performed By: #### M G3, HEMDF, FERR3, PHOS3, ICA, LDH3, BMP3M, CRP2, LFT3, DDI2 ####[address] LDHon 06-21-2021 LDH 640 U/L High 120-246 [facility] Comment on above: Result Comment: Slig htly hemolysed, interpret with caution. Performed By: #### M G3, HEMDF, FERR3, PHOS3, ICA, LDH3, BMP3M, CRP2, LFT3, DDI2 ####[address] Magnesiumon 06-21-2021 Magnesium [Mass/Vol] 2.2 mg/dL Normal 1.6-2.3 [facility] Comment on above: Result Comment: Slig htly hemolysed, interpret with caution. Performed By: #### M G3, HEMDF, FERR3, PHOS3, ICA, LDH3, BMP3M, CRP2, LFT3, DDI2 ####[address] Phosphoruson 06-21-2021 Phosphate [Mass/Vol] 3.4 mg/dL Normal 2.5-4.5 [facility] Comment on above: Result Comment: Slig htly hemolysed, interpret with caution. Performed By: #### M G3, HEMDF, FERR3, PHOS3, ICA, LDH3, BMP3M, CRP2, LFT3, DDI2 ####[address] [place] Basic Metabolic Panelon 07-2 -2020 Anion gap [Moles/Vol] 3 mmol/L Normal 3-13 [facility] Comment on above: Performed By: #### L DH3, CRP2, BMP3M, MG3, ICA, PHOS3, FERR3, HEMDF, LFT3, DDI2 ####[address] [place], [place] Calcium [Mass/Vol] 8.3 mg/dL Low 8.4-10.4 [facility] Comment on above: Performed By: #### L DH3, CRP2, BMP3M, MG3, ICA, PHOS3, FERR3, HEMDF, LFT3, DDI2 ####[address] [place], [place] CO2 [Moles/Vol] 31 mmol/L High 22-30 [facility] Comment on above: Performed By: #### L DH3, CRP2, BMP3M, MG3, ICA, PHOS3, FERR3, HEMDF, LFT3, DDI2 ####[address] [place], [place] Glucose [Mass/Vol] 137 mg/dL High 70-100 [facility] Comment on above: Performed By: #### L DH3, CRP2, BMP3M, MG3, ICA, PHOS3, FERR3, HEMDF, LFT3, DDI2 ####[address] [place], [place] Urea nitrogen [Mass/Vol] 37 mg/dL High 7-20 [facility] Comment on above: Performed By: #### L DH3, CRP2, BMP3M, MG3, ICA, PHOS3, FERR3, HEMDF, LFT3, DDI2 ####[address] [place], [place] Creatinine [Mass/Vol] 0.49 mg/dL Low 0.52-1.25 [facility] Comment on above: Performed By: #### L DH3, CRP2, BMP3M, MG3, ICA, PHOS3, FERR3, HEMDF, LFT3, DDI2 ####[facility] [employer] [id number] [place], [place] eGFR OTHER > 90.0 Normal >60 [facility] Comment on above: Result Comment: KDIG O guidelines provide the following GFR categories:Stage GFR(ml/min/1.73 m2) TermsG1 >=90 Normal or highG2 60-89 Mildly decreased*G3a 45-59 Mildly to moderately irriwiogoY0i 30-44 Moderately to severely decreasedG4 15-29 Severely [...] MG3, ICA, PHOS3, FERR3, HEMDF, LFT3, DDI2 ####[facility] Server[employer]525 [employer] Computer SolutionsDIX[place], [place] GFR/1.73 sq M.predicted among blacks MDRD (S/P/Bld) [Vol rate/Area] mL/min/{1.73_m2} Normal >60 [facility] Comment on above: Performed By: #### L DH3, CRP2, BMP3M, MG3, ICA, PHOS3, FERR3, HEMDF, LFT3, DDI2 ####[facility] Server[employer]525 Linear Computer [place], [place] Potassium [Moles/Vol] 3.3 mmol/L Low 3.5-5.1 [facility] Comment on above: Performed By: #### L DH3, CRP2, BMP3M, MG3, ICA, PHOS3, FERR3, HEMDF, LFT3, DDI2 ####[facility] [employer] [id number] [place] [address] Chloride [Moles/Vol] 101 mmol/L Normal 98-107 [facility] Comment on above: Performed By: #### L DH3, CRP2, BMP3M, MG3, ICA, PHOS3, FERR3, HEMDF, LFT3, DDI2 ####[address] Sodium [Moles/Vol] 135 mmol/L Normal 135-145 [facility] Comment on above: Performed By: #### L DH3, CRP2, BMP3M, MG3, ICA, PHOS3, FERR3, HEMDF, LFT3, DDI2 ####[address] C-Reactive Proteinon 021 CRP [Mass/Vol] 193.5 mg/L High 0.0-6.0 [facility] Comment on above: Result Comment: . Performed By: #### L DH3, CRP2, BMP3M, MG3, ICA, PHOS3, FERR3, HEMDF, LFT3, DDI2 ####[address] [address] [place], [place] Calcium,Ionizedon 06-20-2021 Ionized Ca,Measured 3.80 mg/dL Low 4.30-5.20 [facility] Comment on above: Performed By: #### L DH3, CRP2, BMP3M, MG3, ICA, PHOS3, FERR3, HEMDF, LFT3, DDI2 ####[address] pH, Ionized Calcium 7.50 High 7.31-7.46 [facility] Comment on above: Performed By: #### L DH3, CRP2, BMP3M, MG3, ICA, PHOS3, FERR3, HEMDF, LFT3, DDI2 ####[address] D-Dimer, Innovanceon 021 D-Dimer, [employer] 17.00 mg/L High <0.19-0.50 [facility] Comment on above: Result Comment: Inno carrington D-Dimer values of <0.50 mg/L FEU can be used incombination with a pre-test probability model (e.g. Well's)to exclude pulmonary embolism (PE) disease, as well as jodi in the diagnosis of deep vein thrombosis (DVT). Performed By: #### L DH3, CRP2, BMP3M, MG3, ICA, PHOS3, FERR3, HEMDF, LFT3, DDI2 ####[address] [place] [address] Ferritinon 06-20-2021 Ferritin [Mass/Vol] 390 ng/mL High 8-252 [facility] Comment on above: Performed By: #### L DH3, CRP2, BMP3M, MG3, ICA, PHOS3, FERR3, HEMDF, LFT3, DDI2 ####[address] [place] [address] Glucose,Bedsideon 06-20-2021 Glucose [Mass/Vol] 143 mg/dL High 70-100 [facility] Comment on above: Result Comment: Test performed by glucose meter. Results may be 10%-15% lowerthan serum/plasma values. (CLIA ID [id number]) Performed By: #### B GLU ####[address] [place] [address] Glucose [Mass/Vol] 153 mg/dL High 70-100 [facility] Comment on above: Result Comment: Test performed by glucose meter. Results may be 10%-15% lowerthan serum/plasma values. (CLIA ID [id number]) Performed By: #### B GLU ####[address] [place] [address] Glucose [Mass/Vol] 145 mg/dL High 70-100 [facility] Comment on above: Result Comment: Test performed by glucose meter. Results may be 10%-15% lowerthan serum/plasma values. (CLIA ID [id number]) Performed By: #### B GLU ####[address] [place] [address] Glucose [Mass/Vol] 162 mg/dL High 70-100 [facility] Comment on above: Result Comment: Test performed by glucose meter. Results may be 10%-15% lowerthan serum/plasma values. (CLIA ID [id number]) Performed By: #### B GLU ####[address] [place], [place] Glucose [Mass/Vol] 139 mg/dL High 70-100 [facility] Comment on above: Result Comment: Test performed by glucose meter. Results may be 10%-15% lowerthan serum/plasma values. (CLIA ID [id number]) Performed By: #### B GLU ####[address] Hemogram w/ Autodiffon 06-20 Abs Baso Cnt 0.0 10*3/uL Normal 0.0-0.2 [facility] Comment on above: Performed By: #### L DH3, CRP2, BMP3M, MG3, ICA, PHOS3, FERR3, HEMDF, LFT3, DDI2 ####[address] Abs Neutrophile Cnt 9.8 10*3/uL High 1.8-7.0 [facility] Comment on above: Performed By: #### L DH3, CRP2, BMP3M, MG3, ICA, PHOS3, FERR3, HEMDF, LFT3, DDI2 ####[address] Basophils/100 WBC (Bld) 0.1 % Normal 0.0-2.0 [facility] Comment on above: Performed By: #### L DH3, CRP2, BMP3M, MG3, ICA, PHOS3, FERR3, HEMDF, LFT3, DDI2 ####[address] Eosinophils (Bld) [#/Vol] 0.3 10*3/uL Normal 0.0-0.5 [facility] Comment on above: Performed By: #### L DH3, CRP2, BMP3M, MG3, ICA, PHOS3, FERR3, HEMDF, LFT3, DDI2 ####[address] Eosinophils/100 WBC (Bld) 2.3 % Normal 1.0-6.0 [facility] Comment on above: Performed By: #### L DH3, CRP2, BMP3M, MG3, ICA, PHOS3, FERR3, HEMDF, LFT3, DDI2 ####[address] Erythrocyte distribution width (RBC) [Ratio] 22.9 % High 11.5-14.5 [facility] Comment on above: Performed By: #### L DH3, CRP2, BMP3M, MG3, ICA, PHOS3, FERR3, HEMDF, LFT3, DDI2 ####[address] Granulocytes/100 WBC (Bld) 82.9 % High 40.0-80.0 [facility] Comment on above: Performed By: #### L DH3, CRP2, BMP3M, MG3, ICA, PHOS3, FERR3, HEMDF, LFT3, DDI2 ####[address] Hematocrit (Bld) [Volume fraction] 32.9 % Low 35.0-47.0 [facility] Comment on above: Performed By: #### L DH3, CRP2, BMP3M, MG3, ICA, PHOS3, FERR3, HEMDF, LFT3, DDI2 ####[address] Hemoglobin (Bld) [Mass/Vol] 10.4 g/dL Low 11.7-16.0 [facility] Comment on above: Performed By: #### L DH3, CRP2, BMP3M, MG3, ICA, PHOS3, FERR3, HEMDF, LFT3, DDI2 ####[address] Lymphocytes (Bld) [#/Vol] 0.8 10*3/uL Low 1.0-4.3 [facility] Comment on above: Performed By: #### L DH3, CRP2, BMP3M, MG3, ICA, PHOS3, FERR3, HEMDF, LFT3, DDI2 ####[address] Lymphocytes/100 WBC (Bld) 7.0 % Low 20.0-40.0 [facility] Comment on above: Performed By: #### L DH3, CRP2, BMP3M, MG3, ICA, PHOS3, FERR3, HEMDF, LFT3, DDI2 ####[address] MCH (RBC) [Entitic mass] 23.4 pg Low 26.0-34.0 [facility] Comment on above: Performed By: #### L DH3, CRP2, BMP3M, MG3, ICA, PHOS3, FERR3, HEMDF, LFT3, DDI2 ####[address] MCHC 31.5 % Low 32.0-36.0 [facility] Comment on above: Performed By: #### L DH3, CRP2, BMP3M, MG3, ICA, PHOS3, FERR3, HEMDF, LFT3, DDI2 ####[address] MCV (RBC) [Entitic vol] 74.3 fL Low 79.0-98.0 [facility] Comment on above: Performed By: #### L DH3, CRP2, BMP3M, MG3, ICA, PHOS3, FERR3, HEMDF, LFT3, DDI2 ####[address] Monocytes (Bld) [#/Vol] 0.9 10*3/uL High 0.0-0.8 [facility] Comment on above: Performed By: #### L DH3, CRP2, BMP3M, MG3, ICA, PHOS3, FERR3, HEMDF, LFT3, DDI2 ####[address] [place], [place] Monocytes/100 WBC (Bld) 7.7 % Normal 2.0-10.0 [facility] Comment on above: Performed By: #### L DH3, CRP2, BMP3M, MG3, ICA, PHOS3, FERR3, HEMDF, LFT3, DDI2 ####[address] [place], [place] Platelet mean volume (Bld) [Entitic vol] 9.4 fL Normal 7.4-10.4 [facility] Comment on above: Performed By: #### L DH3, CRP2, BMP3M, MG3, ICA, PHOS3, FERR3, HEMDF, LFT3, DDI2 ####[address] Platelets (Bld) [#/Vol] 112 10*3/uL Low 140-440 [facility] Comment on above: Performed By: #### L DH3, CRP2, BMP3M, MG3, ICA, PHOS3, FERR3, HEMDF, LFT3, DDI2 ####[address] [place], [place] RBC (Bld) [#/Vol] 4.43 10*6/uL Normal 3.80-5.20 [facility] Comment on above: Performed By: #### L DH3, CRP2, BMP3M, MG3, ICA, PHOS3, FERR3, HEMDF, LFT3, DDI2 ####[address] WBC (Bld) [#/Vol] 11.9 10*3/uL High 3.6-10.7 [facility] Comment on above: Performed By: #### L DH3, CRP2, BMP3M, MG3, ICA, PHOS3, FERR3, HEMDF, LFT3, DDI2 ####[address] Hepatic Functionon 1 ALP [Catalytic activity/Vol] 101 U/L Normal 38-126 [facility] Comment on above: Performed By: #### L DH3, CRP2, BMP3M, MG3, ICA, PHOS3, FERR3, HEMDF, LFT3, DDI2 ####[address] ALT [Catalytic activity/Vol] 69 U/L High 0-34 [facility] Comment on above: Result Comment: The ALT test is performed by an updated assay method.Please note that the reference intervals have beenchanged and are now sex specific. Performed By: #### L DH3, CRP2, BMP3M, MG3, ICA, PHOS3, FERR3, HEMDF, LFT3, DDI2 ####[address] AST [Catalytic activity/Vol] 52 U/L High 15-46 [facility] Comment on above: Performed By: #### L DH3, CRP2, BMP3M, MG3, ICA, PHOS3, FERR3, HEMDF, LFT3, DDI2 ####[address] Bilirubin [Mass/Vol] 1.0 mg/dL Normal 0.2-1.3 [facility] Comment on above: Performed By: #### L DH3, CRP2, BMP3M, MG3, ICA, PHOS3, FERR3, HEMDF, LFT3, DDI2 ####[address] [place], [place] Bilirubin.indirect [Mass/Vol] 0.0 mg/dL Normal 0.0-0.3 [facility] Comment on above: Performed By: #### L DH3, CRP2, BMP3M, MG3, ICA, PHOS3, FERR3, HEMDF, LFT3, DDI2 ####[address] Protein [Mass/Vol] 6.2 g/dL Low 6.3-8.2 [facility] Comment on above: Performed By: #### L DH3, CRP2, BMP3M, MG3, ICA, PHOS3, FERR3, HEMDF, LFT3, DDI2 ####[address] [place] [address] Albumin [Mass/Vol] 2.9 g/dL Low 3.5-5.0 [facility] Comment on above: Performed By: #### L DH3, CRP2, BMP3M, MG3, ICA, PHOS3, FERR3, HEMDF, LFT3, DDI2 ####[address] [place] [address] LDHon 06-20-2021 LDH 328 U/L High 120-246 [facility] Comment on above: Performed By: #### L DH3, CRP2, BMP3M, MG3, ICA, PHOS3, FERR3, HEMDF, LFT3, DDI2 ####[address] [address] Magnesiumon 06-20-2021 Magnesium [Mass/Vol] 2.1 mg/dL Normal 1.6-2.3 [facility] Comment on above: Performed By: #### L DH3, CRP2, BMP3M, MG3, ICA, PHOS3, FERR3, HEMDF, LFT3, DDI2 ####[address] [address] Phosphoruson 06-20-2021 Phosphate [Mass/Vol] 3.0 mg/dL Normal 2.5-4.5 [facility] Comment on above: Performed By: #### L DH3, CRP2, BMP3M, MG3, ICA, PHOS3, FERR3, HEMDF, LFT3, DDI2 ####[address] [address] Arterial Blood Gaseson 06-19 CO2 [Moles/Vol] 34.0 mmol/L High 23.0-27.0 [facility] Comment on above: Performed By: #### H EMDF, FERR3, LFT3, ABG, ICA, LDH3, DDI2, CRP2, MG3, PHOS3, BMP3M ####[address] [address] HCO3 (Bld) [Moles/Vol] 32.7 mmol/L High 21.0-25.0 [facility] Comment on above: Performed By: #### H EMDF, FERR3, LFT3, ABG, ICA, LDH3, DDI2, CRP2, MG3, PHOS3, BMP3M ####[address] Hemoglobin (Bld) [Mass/Vol] 11.7 g/dL Normal ScreenOnly [facility] Comment on above: Performed By: #### H EMDF, FERR3, LFT3, ABG, ICA, LDH3, DDI2, CRP2, MG3, PHOS3, BMP3M ####[address] Oxygen (Bld) [Partial pressure] 53.7 mm[Hg] Low 80.0-100.0 [facility] Comment on above: Performed By: #### H EMDF, FERR3, LFT3, ABG, ICA, LDH3, DDI2, CRP2, MG3, PHOS3, BMP3M ####[address] Oxygen saturation in Blood 87.9 % Low 95.0-100.0 [facility] Comment on above: Performed By: #### H EMDF, FERR3, LFT3, ABG, ICA, LDH3, DDI2, CRP2, MG3, PHOS3, BMP3M ####[address] pCO2 41.3 mm[Hg] Normal 35.0-45.0 [facility] Comment on above: Performed By: #### H EMDF, FERR3, LFT3, ABG, ICA, LDH3, DDI2, CRP2, MG3, PHOS3, BMP3M ####[address] pH 7.517 High 7.350-7.450 [facility] Comment on above: Performed By: #### H EMDF, FERR3, LFT3, ABG, ICA, LDH3, DDI2, CRP2, MG3, PHOS3, BMP3M ####[address] [place], [place] Std Base Excess 9.0 mmol/L High -3.0-3.0 [facility] Comment on above: Performed By: #### H EMDF, FERR3, LFT3, ABG, ICA, LDH3, DDI2, CRP2, MG3, PHOS3, BMP3M ####[address] [place], [place] FIO2 30% Normal [facility] Comment on above: Performed By: #### H EMDF, FERR3, LFT3, ABG, ICA, LDH3, DDI2, CRP2, MG3, PHOS3, BMP3M ####[address] [place], [place] Basic Metabolic Panelon 07-2 Calcium [Mass/Vol] 8.4 mg/dL Normal 8.4-10.4 [facility] Comment on above: Performed By: #### H EMDF, FERR3, LFT3, ABG, ICA, LDH3, DDI2, CRP2, MG3, PHOS3, BMP3M ####[address] [place], [place] Anion gap [Moles/Vol] 4 mmol/L Normal 3-13 [facility] Comment on above: Performed By: #### H EMDF, FERR3, LFT3, ABG, ICA, LDH3, DDI2, CRP2, MG3, PHOS3, BMP3M ####[address] [place], [place] CO2 [Moles/Vol] 33 mmol/L High 22-30 [facility] Comment on above: Performed By: #### H EMDF, FERR3, LFT3, ABG, ICA, LDH3, DDI2, CRP2, MG3, PHOS3, BMP3M ####[address] [place], [place] Glucose [Mass/Vol] 136 mg/dL High 70-100 [facility] Comment on above: Performed By: #### H EMDF, FERR3, LFT3, ABG, ICA, LDH3, DDI2, CRP2, MG3, PHOS3, BMP3M ####[address] [place], [place] Urea nitrogen [Mass/Vol] 47 mg/dL High 7-20 [facility] Comment on above: Performed By: #### H EMDF, FERR3, LFT3, ABG, ICA, LDH3, DDI2, CRP2, MG3, PHOS3, BMP3M ####[address] Creatinine [Mass/Vol] 0.65 mg/dL Normal 0.52-1.25 [facility] Comment on above: Performed By: #### H EMDF, FERR3, LFT3, ABG, ICA, LDH3, DDI2, CRP2, MG3, PHOS3, BMP3M ####[address] eGFR OTHER > 90.0 Normal >60 [facility] Comment on above: Result Comment: KDIG O guidelines provide the following GFR categories:Stage GFR(ml/min/1.73 m2) TermsG1 >=90 Normal or highG2 60-89 Mildly decreased*G3a 45-59 Mildly to moderately ebyeojyocI7l 30-44 Moderately to severely decreasedG4 15-29 Severely [...] ICA, LDH3, DDI2, CRP2, MG3, PHOS3, BMP3M ####[address] GFR/1.73 sq M.predicted among blacks MDRD (S/P/Bld) [Vol rate/Area] mL/min/{1.73_m2} Normal >60 [facility] Comment on above: Performed By: #### H EMDF, FERR3, LFT3, ABG, ICA, LDH3, DDI2, CRP2, MG3, PHOS3, BMP3M ####[address] Potassium [Moles/Vol] 3.1 mmol/L Low 3.5-5.1 [facility] Comment on above: Performed By: #### H EMDF, FERR3, LFT3, ABG, ICA, LDH3, DDI2, CRP2, MG3, PHOS3, BMP3M ####[address] Chloride [Moles/Vol] 104 mmol/L Normal 98-107 [facility] Comment on above: Performed By: #### H EMDF, FERR3, LFT3, ABG, ICA, LDH3, DDI2, CRP2, MG3, PHOS3, BMP3M ####[address] Sodium [Moles/Vol] 142 mmol/L Normal 135-145 [facility] Comment on above: Performed By: #### H EMDF, FERR3, LFT3, ABG, ICA, LDH3, DDI2, CRP2, MG3, PHOS3, BMP3M ####[address] C-Reactive Proteinon 021 CRP [Mass/Vol] 204.0 mg/L High 0.0-6.0 [facility] Comment on above: Result Comment: . Performed By: #### H EMDF, FERR3, LFT3, ABG, ICA, LDH3, DDI2, CRP2, MG3, PHOS3, BMP3M ####[address] CR Chest Portableon 06-19-20 21 CR Chest Portable Normal [facility] CULT./ST. RESPIRATORYon 05-31 CULT./ST. RESPIRATORY Normal [facility] Comment on above: Performed By: #### C S/RE ####[address] [address] [address] [place], [place] [id number]#### S/GRM ####[address] [address] CULTURE BLOODon 06-19-2021 Microscopic examination of blood, culture 1 Organism (Coagulase-negative) Staphylococcus hominis Isolated: For identification and/or sensitivity, refer to culture collected on: 06/15/2021 at 2308, ([id number]). Normal [facility] Comment on above: Performed By: #### C /BLD ####[address] Calcium,Ionizedon 06-19-2021 Ionized Ca,Measured 3.90 mg/dL Low 4.30-5.20 [facility] Comment on above: Performed By: #### H EMDF, FERR3, LFT3, ABG, ICA, LDH3, DDI2, CRP2, MG3, PHOS3, BMP3M ####[address] [address] pH, Ionized Calcium 7.45 Normal 7.31-7.46 [facility] Comment on above: Performed By: #### H EMDF, FERR3, LFT3, ABG, ICA, LDH3, DDI2, CRP2, MG3, PHOS3, BMP3M ####[address] [address] D-Dimer, [employer] 021 D-Dimer, [employer] 15.92 mg/L High <0.19-0.50 [facility] Comment on above: Result Comment: Inno carrington D-Dimer values of <0.50 mg/L FEU can be used incombination with a pre-test probability model (e.g. Well's)to exclude pulmonary embolism (PE) disease, as well as jodi in the diagnosis of deep vein thrombosis (DVT). Performed By: #### H EMDF, FERR3, LFT3, ABG, ICA, LDH3, DDI2, CRP2, MG3, PHOS3, BMP3M ####[email or web address] [place] [address] Echo Complete w/wo Contrasto n 06-19-2021 Echo Complete w/wo Contrast Normal [facility] Ferritinon 06-19-2021 Ferritin [Mass/Vol] 340 ng/mL High 8-252 [facility] Comment on above: Performed By: #### H EMDF, FERR3, LFT3, ABG, ICA, LDH3, DDI2, CRP2, MG3, PHOS3, BMP3M ####[email or web address] [place] [address] Glucose,Bedsideon 06-19-2021 Glucose [Mass/Vol] 162 mg/dL High 70-100 [facility] Comment on above: Result Comment: Test performed by glucose meter. Results may be 10%-15% lowerthan serum/plasma values. (CLIA ID [id number]) Performed By: #### B GLU ####[employer] [place] [address] Glucose [Mass/Vol] 185 mg/dL High 70-100 [facility] Comment on above: Result Comment: Test performed by glucose meter. Results may be 10%-15% lowerthan serum/plasma values. (CLIA ID [id number]) Performed By: #### B GLU ####[employer] [place] [address] Glucose [Mass/Vol] 159 mg/dL High 70-100 [facility] Comment on above: Result Comment: Test performed by glucose meter. Results may be 10%-15% lowerthan serum/plasma values. (CLIA ID [id number]) Performed By: #### B GLU ####[employer] [facility] [email or web address] [place] [address] Glucose [Mass/Vol] 137 mg/dL High 70-100 [facility] Comment on above: Result Comment: Test performed by glucose meter. Results may be 10%-15% lowerthan serum/plasma values. (CLIA ID [id number]) Performed By: #### B GLU ####[address] Hemogram w/ Autodiffon 06-19 Abs Baso Cnt 0.0 10*3/uL Normal 0.0-0.2 [facility] Comment on above: Performed By: #### H EMDF, FERR3, LFT3, ABG, ICA, LDH3, DDI2, CRP2, MG3, PHOS3, BMP3M ####[address] Abs Neutrophile Cnt 10.4 10*3/uL High 1.8-7.0 [facility] Comment on above: Performed By: #### H EMDF, FERR3, LFT3, ABG, ICA, LDH3, DDI2, CRP2, MG3, PHOS3, BMP3M ####[address] Basophils/100 WBC (Bld) 0.0 % Normal 0.0-2.0 [facility] Comment on above: Performed By: #### H EMDF, FERR3, LFT3, ABG, ICA, LDH3, DDI2, CRP2, MG3, PHOS3, BMP3M ####[address] Eosinophils (Bld) [#/Vol] 0.1 10*3/uL Normal 0.0-0.5 [facility] Comment on above: Performed By: #### H EMDF, FERR3, LFT3, ABG, ICA, LDH3, DDI2, CRP2, MG3, PHOS3, BMP3M ####[address] Eosinophils/100 WBC (Bld) 0.6 % Low 1.0-6.0 [facility] Comment on above: Performed By: #### H EMDF, FERR3, LFT3, ABG, ICA, LDH3, DDI2, CRP2, MG3, PHOS3, BMP3M ####[address] Erythrocyte distribution width (RBC) [Ratio] 22.0 % High 11.5-14.5 [facility] Comment on above: Performed By: #### H EMDF, FERR3, LFT3, ABG, ICA, LDH3, DDI2, CRP2, MG3, PHOS3, BMP3M ####[address] Granulocytes/100 WBC (Bld) 86.5 % High 40.0-80.0 [facility] Comment on above: Performed By: #### H EMDF, FERR3, LFT3, ABG, ICA, LDH3, DDI2, CRP2, MG3, PHOS3, BMP3M ####[address] Hematocrit (Bld) [Volume fraction] 34.9 % Low 35.0-47.0 [facility] Comment on above: Performed By: #### H EMDF, FERR3, LFT3, ABG, ICA, LDH3, DDI2, CRP2, MG3, PHOS3, BMP3M ####[address] Hemoglobin (Bld) [Mass/Vol] 10.8 g/dL Low 11.7-16.0 [facility] Comment on above: Performed By: #### H EMDF, FERR3, LFT3, ABG, ICA, LDH3, DDI2, CRP2, MG3, PHOS3, BMP3M ####[address] Lymphocytes (Bld) [#/Vol] 0.6 10*3/uL Low 1.0-4.3 [facility] Comment on above: Performed By: #### H EMDF, FERR3, LFT3, ABG, ICA, LDH3, DDI2, CRP2, MG3, PHOS3, BMP3M ####[address] Lymphocytes/100 WBC (Bld) 5.0 % Low 20.0-40.0 [facility] Comment on above: Performed By: #### H EMDF, FERR3, LFT3, ABG, ICA, LDH3, DDI2, CRP2, MG3, PHOS3, BMP3M ####[address] MCH (RBC) [Entitic mass] 23.2 pg Low 26.0-34.0 [facility] Comment on above: Performed By: #### H EMDF, FERR3, LFT3, ABG, ICA, LDH3, DDI2, CRP2, MG3, PHOS3, BMP3M ####[address] MCHC 31.0 % Low 32.0-36.0 [facility] Comment on above: Performed By: #### H EMDF, FERR3, LFT3, ABG, ICA, LDH3, DDI2, CRP2, MG3, PHOS3, BMP3M ####[address] MCV (RBC) [Entitic vol] 74.7 fL Low 79.0-98.0 [facility] Comment on above: Performed By: #### H EMDF, FERR3, LFT3, ABG, ICA, LDH3, DDI2, CRP2, MG3, PHOS3, BMP3M ####[address] Monocytes (Bld) [#/Vol] 0.9 10*3/uL High 0.0-0.8 [facility] Comment on above: Performed By: #### H EMDF, FERR3, LFT3, ABG, ICA, LDH3, DDI2, CRP2, MG3, PHOS3, BMP3M ####[address] Monocytes/100 WBC (Bld) 7.9 % Normal 2.0-10.0 [facility] Comment on above: Performed By: #### H EMDF, FERR3, LFT3, ABG, ICA, LDH3, DDI2, CRP2, MG3, PHOS3, BMP3M ####[address] Platelet mean volume (Bld) [Entitic vol] 9.6 fL Normal 7.4-10.4 [facility] Comment on above: Performed By: #### H EMDF, FERR3, LFT3, ABG, ICA, LDH3, DDI2, CRP2, MG3, PHOS3, BMP3M ####[address] Platelets (Bld) [#/Vol] 108 10*3/uL Low 140-440 [facility] Comment on above: Performed By: #### H EMDF, FERR3, LFT3, ABG, ICA, LDH3, DDI2, CRP2, MG3, PHOS3, BMP3M ####[address] RBC (Bld) [#/Vol] 4.67 10*6/uL Normal 3.80-5.20 [facility] Comment on above: Performed By: #### H EMDF, FERR3, LFT3, ABG, ICA, LDH3, DDI2, CRP2, MG3, PHOS3, BMP3M ####[address] WBC (Bld) [#/Vol] 12.0 10*3/uL High 3.6-10.7 [facility] Comment on above: Performed By: #### H EMDF, FERR3, LFT3, ABG, ICA, LDH3, DDI2, CRP2, MG3, PHOS3, BMP3M ####[address] Hepatic Functionon 1 ALT [Catalytic activity/Vol] 64 U/L High 0-34 [facility] Comment on above: Result Comment: The ALT test is performed by an updated assay method.Please note that the reference intervals have beenchanged and are now sex specific. Performed By: #### H EMDF, FERR3, LFT3, ABG, ICA, LDH3, DDI2, CRP2, MG3, PHOS3, BMP3M ####[address] ALP [Catalytic activity/Vol] 78 U/L Normal 38-126 [facility] Comment on above: Performed By: #### H EMDF, FERR3, LFT3, ABG, ICA, LDH3, DDI2, CRP2, MG3, PHOS3, BMP3M ####[address] AST [Catalytic activity/Vol] 34 U/L Normal 15-46 [facility] Comment on above: Performed By: #### H EMDF, FERR3, LFT3, ABG, ICA, LDH3, DDI2, CRP2, MG3, PHOS3, BMP3M ####[address] Bilirubin [Mass/Vol] 1.0 mg/dL Normal 0.2-1.3 [facility] Comment on above: Performed By: #### H EMDF, FERR3, LFT3, ABG, ICA, LDH3, DDI2, CRP2, MG3, PHOS3, BMP3M ####[address] Protein [Mass/Vol] 6.2 g/dL Low 6.3-8.2 [facility] Comment on above: Performed By: #### H EMDF, FERR3, LFT3, ABG, ICA, LDH3, DDI2, CRP2, MG3, PHOS3, BMP3M ####[address] Bilirubin.indirect [Mass/Vol] 0.0 mg/dL Normal 0.0-0.3 [facility] Comment on above: Performed By: #### H EMDF, FERR3, LFT3, ABG, ICA, LDH3, DDI2, CRP2, MG3, PHOS3, BMP3M ####[facility] [id number] [place] [address] Albumin [Mass/Vol] 3.0 g/dL Low 3.5-5.0 [facility] Comment on above: Performed By: #### H EMDF, FERR3, LFT3, ABG, ICA, LDH3, DDI2, CRP2, MG3, PHOS3, BMP3M ####[address] [address] LDHon 06-19-2021 LDH 333 U/L High 120-246 [facility] Comment on above: Performed By: #### H EMDF, FERR3, LFT3, ABG, ICA, LDH3, DDI2, CRP2, MG3, PHOS3, BMP3M ####[address] [address] Magnesiumon 06-19-2021 Magnesium [Mass/Vol] 2.5 mg/dL High 1.6-2.3 [facility] Comment on above: Performed By: #### H EMDF, FERR3, LFT3, ABG, ICA, LDH3, DDI2, CRP2, MG3, PHOS3, BMP3M ####[address] [address] Phosphoruson 06-19-2021 Phosphate [Mass/Vol] 2.5 mg/dL Normal 2.5-4.5 [facility] Comment on above: Performed By: #### H EMDF, FERR3, LFT3, ABG, ICA, LDH3, DDI2, CRP2, MG3, PHOS3, BMP3M ####[address] [address] Procalcitoninon 06-19-2021 Procalcitonin 0.10 ng/mL High 0.00-0.09 [facility] Comment on above: Performed By: #### P OLESYA ####[address] [address] Interpretation See Below Normal [facility] Comment on above: Result Comment: PCT <0.50 = Low risk of severe sepsis and/or septic shock.PCT >2.00 = High risk of severe sepsis and/or septic shock. Performed By: #### P OLESYA ####[address] [place], [place] STAIN GRAMon 06-19-2021 STAIN GRAM STAIN GRAM --> Statu s: F Moderate polymorphonuclear cells/lpf. Moderate epithelial cells/lpf. Rare gram positive cocci in pairs and chains. Moderate epithelial cells/lpf. Rare gram positive cocci in pairs and chains. Normal [facility] Comment on above: Performed By: #### S /GRM ####[address] [place], [place] #### CS/RE ####[address] [place] [address] [place] Arterial Blood Gaseson 06-18 CO2 [Moles/Vol] 33.1 mmol/L High 23.0-27.0 [facility] Comment on above: Performed By: #### A BG ####[address] [place], [place] HCO3 (Bld) [Moles/Vol] 31.9 mmol/L High 21.0-25.0 [facility] Comment on above: Performed By: #### A BG ####[address] [place], [place] Hemoglobin (Bld) [Mass/Vol] 12.3 g/dL Normal ScreenOnly [facility] Comment on above: Performed By: #### A BG ####[address] [place], [place] Oxygen (Bld) [Partial pressure] 73.2 mm[Hg] Low 80.0-100.0 [facility] Comment on above: Performed By: #### A BG ####[address] Oxygen saturation in Blood 93.9 % Low 95.0-100.0 [facility] Comment on above: Performed By: #### A BG ####[address] [place], [place] pCO2 41.5 mm[Hg] Normal 35.0-45.0 [facility] Comment on above: Performed By: #### A BG ####[address] [place], [place] pH 7.503 High 7.350-7.450 [facility] Comment on above: Performed By: #### A BG ####[address] [place], [place] Std Base Excess 8.0 mmol/L High -3.0-3.0 [facility] Comment on above: Performed By: #### A BG ####[address] FIO2 50% Normal [facility] Comment on above: Performed By: #### A BG ####[address] Basic Metabolic Panelon 07-2 0-2020 Anion gap [Moles/Vol] 6 mmol/L Normal 3-13 [facility] Comment on above: Performed By: #### P HOS3, BMP3M, CRP2, ICA, FERR3, HEMDF, LFT3, MG3, DDI2, LDH3 ####[address] [place], [place] Calcium [Mass/Vol] 8.3 mg/dL Low 8.4-10.4 [facility] Comment on above: Performed By: #### P HOS3, BMP3M, CRP2, ICA, FERR3, HEMDF, LFT3, MG3, DDI2, LDH3 ####[address] [place], [place] CO2 [Moles/Vol] 31 mmol/L High 22-30 [facility] Comment on above: Performed By: #### P HOS3, BMP3M, CRP2, ICA, FERR3, HEMDF, LFT3, MG3, DDI2, LDH3 ####[address] Glucose [Mass/Vol] 229 mg/dL High 70-100 [facility] Comment on above: Performed By: #### P HOS3, BMP3M, CRP2, ICA, FERR3, HEMDF, LFT3, MG3, DDI2, LDH3 ####[address] [place], [place] Urea nitrogen [Mass/Vol] 59 mg/dL High 7-20 [facility] Comment on above: Performed By: #### P HOS3, BMP3M, CRP2, ICA, FERR3, HEMDF, LFT3, MG3, DDI2, LDH3 ####[address] [place], [place] Creatinine [Mass/Vol] 0.71 mg/dL Normal 0.52-1.25 [facility] Comment on above: Performed By: #### P HOS3, BMP3M, CRP2, ICA, FERR3, HEMDF, LFT3, MG3, DDI2, LDH3 ####[address] [place], [place] eGFR OTHER > 90.0 Normal >60 [facility] Comment on above: Result Comment: KDIG O guidelines provide the following GFR categories:Stage GFR(ml/min/1.73 m2) TermsG1 >=90 Normal or highG2 60-89 Mildly decreased*G3a 45-59 Mildly to moderately [id number] 30-44 Moderately to severely decreasedG4 15-29 Severely [...] ICA, FERR3, HEMDF, LFT3, MG3, DDI2, LDH3 ####[address] GFR/1.73 sq M.predicted among blacks MDRD (S/P/Bld) [Vol rate/Area] mL/min/{1.73_m2} Normal >60 [facility] Comment on above: Performed By: #### P HOS3, BMP3M, CRP2, ICA, FERR3, HEMDF, LFT3, MG3, DDI2, LDH3 ####[address] Potassium [Moles/Vol] 3.3 mmol/L Low 3.5-5.1 [facility] Comment on above: Performed By: #### P HOS3, BMP3M, CRP2, ICA, FERR3, HEMDF, LFT3, MG3, DDI2, LDH3 ####[address] Sodium [Moles/Vol] 140 mmol/L Normal 135-145 [facility] Comment on above: Performed By: #### P HOS3, BMP3M, CRP2, ICA, FERR3, HEMDF, LFT3, MG3, DDI2, LDH3 ####[address] Chloride [Moles/Vol] 104 mmol/L Normal 98-107 [facility] Comment on above: Performed By: #### P HOS3, BMP3M, CRP2, ICA, FERR3, HEMDF, LFT3, MG3, DDI2, LDH3 ####[address] C-Reactive Proteinon 021 CRP [Mass/Vol] 20.6 mg/L High 0.0-6.0 [facility] Comment on above: Result Comment: . Performed By: #### P HOS3, BMP3M, CRP2, ICA, FERR3, HEMDF, LFT3, MG3, DDI2, LDH3 ####[address] CR Abdomen APon 06-18-2021 CR Abdomen AP Normal [facility] CR Chest Portableon 06-18-20 21 CR Chest Portable Normal [facility] CULTURE BLOODon 06-18-2021 Microscopic examination of blood, culture CULTURE BLOOD --> Status: F No growth at 5 days. Normal [facility] Comment on above: Performed By: #### C /BLD ####[id number] [place], [place] CULTURE BLOOD (Two)on 2020 Microscopic examination of blood, culture CULTURE BLOOD (Two) --> Status: F No growth at 5 days. Normal [facility] Comment on above: Performed By: #### C /BLT ####[address] [place], [place] CULTURE URINEon 06-18-2021 CULTURE URINE Normal [facility] Comment on above: Performed By: #### C /UR ####[address] [place] [id number] [place], [place] Calcium,Ionizedon 06-18-2021 Ionized Ca,Measured 4.00 mg/dL Low 4.30-5.20 [facility] Comment on above: Performed By: #### P HOS3, BMP3M, CRP2, ICA, FERR3, HEMDF, LFT3, MG3, DDI2, LDH3 ####[address] [place], [place] pH, Ionized Calcium 7.42 Normal 7.31-7.46 [facility] Comment on above: Performed By: #### P HOS3, BMP3M, CRP2, ICA, FERR3, HEMDF, LFT3, MG3, DDI2, LDH3 ####[facility] [employer] [id number] [place], [place] D-Dimer, Innovanceon 021 D-Dimer, [employer] 12.05 mg/L High <0.19-0.50 [facility] Comment on above: Result Comment: Inno car[place] D-Dimer values of <0.50 mg/L FEU can be used incombination with a pre-test probability model (e.g. Well's)to exclude pulmonary embolism (PE) disease, as well as jodi in the diagnosis of deep vein thrombosis (DVT). Performed By: #### P HOS3, BMP3M, CRP2, ICA, FERR3, HEMDF, LFT3, MG3, DDI2, LDH3 ####[facility] [employer] [id number] [place] [address] Ferritinon 06-18-2021 Ferritin [Mass/Vol] 139 ng/mL Normal 8-252 [facility] Comment on above: Performed By: #### P HOS3, BMP3M, CRP2, ICA, FERR3, HEMDF, LFT3, MG3, DDI2, LDH3 ####[facility] [employer] [id number] [place] [address] Glucose,Bedsideon 06-18-2021 Glucose [Mass/Vol] 163 mg/dL High 70-100 [facility] Comment on above: Result Comment: Test performed by glucose meter. Results may be 10%-15% lowerthan serum/plasma values. (CLIA ID [id number]) Performed By: #### B GLU ####[facility] [employer] [id number] [place] [address] Glucose [Mass/Vol] 216 mg/dL High 70-100 [facility] Comment on above: Result Comment: Test performed by glucose meter. Results may be 10%-15% lowerthan serum/plasma values. (CLIA ID [id number]) Performed By: #### B GLU ####[facility] [employer] [id number] [place] [address] Glucose [Mass/Vol] 196 mg/dL High 70-100 [facility] Comment on above: Result Comment: Test performed by glucose meter. Results may be 10%-15% lowerthan serum/plasma values. (CLIA ID [id number]) Performed By: #### B GLU ####[facility] [employer] [id number] [place] [address] Glucose [Mass/Vol] 192 mg/dL High 70-100 [facility] Comment on above: Result Comment: Test performed by glucose meter. Results may be 10%-15% lowerthan serum/plasma values. (CLIA ID [id number]) Performed By: #### B GLU ####[address] Glucose [Mass/Vol] 205 mg/dL High 70-100 [facility] Comment on above: Result Comment: Test performed by glucose meter. Results may be 10%-15% lowerthan serum/plasma values. (CLIA ID [id number]) Performed By: #### B GLU ####[address] Hemogram w/ Autodiffon 06-18 Abs Baso Cnt 0.0 10*3/uL Normal 0.0-0.2 [facility] Comment on above: Performed By: #### P HOS3, BMP3M, CRP2, ICA, FERR3, HEMDF, LFT3, MG3, DDI2, LDH3 ####[address] Abs Neutrophile Cnt 9.4 10*3/uL High 1.8-7.0 [facility] Comment on above: Performed By: #### P HOS3, BMP3M, CRP2, ICA, FERR3, HEMDF, LFT3, MG3, DDI2, LDH3 ####[address] Basophils/100 WBC (Bld) 0.0 % Normal 0.0-2.0 [facility] Comment on above: Performed By: #### P HOS3, BMP3M, CRP2, ICA, FERR3, HEMDF, LFT3, MG3, DDI2, LDH3 ####[address] Eosinophils (Bld) [#/Vol] 0.0 10*3/uL Normal 0.0-0.5 [facility] Comment on above: Performed By: #### P HOS3, BMP3M, CRP2, ICA, FERR3, HEMDF, LFT3, MG3, DDI2, LDH3 ####[address] Eosinophils/100 WBC (Bld) 0.1 % Low 1.0-6.0 [facility] Comment on above: Performed By: #### P HOS3, BMP3M, CRP2, ICA, FERR3, HEMDF, LFT3, MG3, DDI2, LDH3 ####[address] Erythrocyte distribution width (RBC) [Ratio] 21.3 % High 11.5-14.5 [facility] Comment on above: Performed By: #### P HOS3, BMP3M, CRP2, ICA, FERR3, HEMDF, LFT3, MG3, DDI2, LDH3 ####[address] Granulocytes/100 WBC (Bld) 84.9 % High 40.0-80.0 [facility] Comment on above: Performed By: #### P HOS3, BMP3M, CRP2, ICA, FERR3, HEMDF, LFT3, MG3, DDI2, LDH3 ####[address] Hematocrit (Bld) [Volume fraction] 34.3 % Low 35.0-47.0 [facility] Comment on above: Performed By: #### P HOS3, BMP3M, CRP2, ICA, FERR3, HEMDF, LFT3, MG3, DDI2, LDH3 ####[address] Hemoglobin (Bld) [Mass/Vol] 10.9 g/dL Low 11.7-16.0 [facility] Comment on above: Performed By: #### P HOS3, BMP3M, CRP2, ICA, FERR3, HEMDF, LFT3, MG3, DDI2, LDH3 ####[address] Lymphocytes (Bld) [#/Vol] 0.7 10*3/uL Low 1.0-4.3 [facility] Comment on above: Performed By: #### P HOS3, BMP3M, CRP2, ICA, FERR3, HEMDF, LFT3, MG3, DDI2, LDH3 ####[address] Lymphocytes/100 WBC (Bld) 6.5 % Low 20.0-40.0 [facility] Comment on above: Performed By: #### P HOS3, BMP3M, CRP2, ICA, FERR3, HEMDF, LFT3, MG3, DDI2, LDH3 ####[address] MCH (RBC) [Entitic mass] 23.2 pg Low 26.0-34.0 [facility] Comment on above: Performed By: #### P HOS3, BMP3M, CRP2, ICA, FERR3, HEMDF, LFT3, MG3, DDI2, LDH3 ####[address] MCHC 31.7 % Low 32.0-36.0 [facility] Comment on above: Performed By: #### P HOS3, BMP3M, CRP2, ICA, FERR3, HEMDF, LFT3, MG3, DDI2, LDH3 ####[address] MCV (RBC) [Entitic vol] 73.0 fL Low 79.0-98.0 [facility] Comment on above: Performed By: #### P HOS3, BMP3M, CRP2, ICA, FERR3, HEMDF, LFT3, MG3, DDI2, LDH3 ####[address] Monocytes (Bld) [#/Vol] 1.0 10*3/uL High 0.0-0.8 [facility] Comment on above: Performed By: #### P HOS3, BMP3M, CRP2, ICA, FERR3, HEMDF, LFT3, MG3, DDI2, LDH3 ####[address] Monocytes/100 WBC (Bld) 8.5 % Normal 2.0-10.0 [facility] Comment on above: Performed By: #### P HOS3, BMP3M, CRP2, ICA, FERR3, HEMDF, LFT3, MG3, DDI2, LDH3 ####[address] [place], [place] Platelet mean volume (Bld) [Entitic vol] 9.4 fL Normal 7.4-10.4 [facility] Comment on above: Performed By: #### P HOS3, BMP3M, CRP2, ICA, FERR3, HEMDF, LFT3, MG3, DDI2, LDH3 ####[address] [place], [place] Platelets (Bld) [#/Vol] 108 10*3/uL Low 140-440 [facility] Comment on above: Performed By: #### P HOS3, BMP3M, CRP2, ICA, FERR3, HEMDF, LFT3, MG3, DDI2, LDH3 ####[address] RBC (Bld) [#/Vol] 4.71 10*6/uL Normal 3.80-5.20 [facility] Comment on above: Performed By: #### P HOS3, BMP3M, CRP2, ICA, FERR3, HEMDF, LFT3, MG3, DDI2, LDH3 ####[address] WBC (Bld) [#/Vol] 11.1 10*3/uL High 3.6-10.7 [facility] Comment on above: Performed By: #### P HOS3, BMP3M, CRP2, ICA, FERR3, HEMDF, LFT3, MG3, DDI2, LDH3 ####[address] [place], [place] Hepatic Functionon 1 ALP [Catalytic activity/Vol] 78 U/L Normal 38-126 [facility] Comment on above: Performed By: #### P HOS3, BMP3M, CRP2, ICA, FERR3, HEMDF, LFT3, MG3, DDI2, LDH3 ####[address] ALT [Catalytic activity/Vol] 86 U/L High 0-34 [facility] Comment on above: Result Comment: The ALT test is performed by an updated assay method.Please note that the reference intervals have beenchanged and are now sex specific. Performed By: #### P HOS3, BMP3M, CRP2, ICA, FERR3, HEMDF, LFT3, MG3, DDI2, LDH3 ####[address] AST [Catalytic activity/Vol] 32 U/L Normal 15-46 [facility] Comment on above: Performed By: #### P HOS3, BMP3M, CRP2, ICA, FERR3, HEMDF, LFT3, MG3, DDI2, LDH3 ####[address] Bilirubin [Mass/Vol] 0.6 mg/dL Normal 0.2-1.3 [facility] Comment on above: Performed By: #### P HOS3, BMP3M, CRP2, ICA, FERR3, HEMDF, LFT3, MG3, DDI2, LDH3 ####[address] [place], [place] Bilirubin.indirect [Mass/Vol] 0.0 mg/dL Normal 0.0-0.3 [facility] Comment on above: Performed By: #### P HOS3, BMP3M, CRP2, ICA, FERR3, HEMDF, LFT3, MG3, DDI2, LDH3 ####[address] Protein [Mass/Vol] 6.1 g/dL Low 6.3-8.2 [facility] Comment on above: Performed By: #### P HOS3, BMP3M, CRP2, ICA, FERR3, HEMDF, LFT3, MG3, DDI2, LDH3 ####[address] Albumin [Mass/Vol] 3.1 g/dL Low 3.5-5.0 [facility] Comment on above: Performed By: #### P HOS3, BMP3M, CRP2, ICA, FERR3, HEMDF, LFT3, MG3, DDI2, LDH3 ####[address] [place] [address] LDHon 06-18-2021 LDH 290 U/L High 120-246 [facility] Comment on above: Performed By: #### P HOS3, BMP3M, CRP2, ICA, FERR3, HEMDF, LFT3, MG3, DDI2, LDH3 ####[address] [place], [place] Magnesiumon 06-18-2021 Magnesium [Mass/Vol] 2.3 mg/dL Normal 1.6-2.3 [facility] Comment on above: Performed By: #### P HOS3, BMP3M, CRP2, ICA, FERR3, HEMDF, LFT3, MG3, DDI2, LDH3 ####[address] Phosphoruson 06-18-2021 Phosphate [Mass/Vol] 3.4 mg/dL Normal 2.5-4.5 [facility] Comment on above: Performed By: #### P HOS3, BMP3M, CRP2, ICA, FERR3, HEMDF, LFT3, MG3, DDI2, LDH3 ####[address] [place], [place] Basic Metabolic Panelon 05-30 Calcium [Mass/Vol] 8.6 mg/dL Normal 8.4-10.4 [facility] Comment on above: Performed By: #### P HOS3, LDH3, DDI2, CRP2, BMP3M, MG3, FERR3, HEMDF, LFT3, ICA ####[address] Anion gap [Moles/Vol] 6 mmol/L Normal 3-13 [facility] Comment on above: Performed By: #### P HOS3, LDH3, DDI2, CRP2, BMP3M, MG3, FERR3, HEMDF, LFT3, ICA ####[address] CO2 [Moles/Vol] 31 mmol/L High 22-30 [facility] Comment on above: Performed By: #### P HOS3, LDH3, DDI2, CRP2, BMP3M, MG3, FERR3, HEMDF, LFT3, ICA ####[address] Glucose [Mass/Vol] 258 mg/dL High 70-100 [facility] Comment on above: Performed By: #### P HOS3, LDH3, DDI2, CRP2, BMP3M, MG3, FERR3, HEMDF, LFT3, ICA ####[address] Urea nitrogen [Mass/Vol] 56 mg/dL High 7-20 [facility] Comment on above: Performed By: #### P HOS3, LDH3, DDI2, CRP2, BMP3M, MG3, FERR3, HEMDF, LFT3, ICA ####[address] Creatinine [Mass/Vol] 0.88 mg/dL Normal 0.52-1.25 [facility] Comment on above: Performed By: #### P HOS3, LDH3, DDI2, CRP2, BMP3M, MG3, FERR3, HEMDF, LFT3, ICA ####[address] GFR/1.73 sq M.predicted among blacks MDRD (S/P/Bld) [Vol rate/Area] 86.7 mL/min/{1.73_m2} Normal >60 [facility] Comment on above: Performed By: #### P HOS3, LDH3, DDI2, CRP2, BMP3M, MG3, FERR3, HEMDF, LFT3, ICA ####[address] GFR/1.73 sq M.predicted among non-blacks MDRD (S/P/Bld) [Vol rate/Area] 74.8 mL/min/{1.73_m2} Normal >60 [facility] Comment on above: Result Comment: KDIG O guidelines provide the following GFR categories:Stage GFR(ml/min/1.73 m2) TermsG1 >=90 Normal or highG2 60-89 Mildly decreased*G3a 45-59 Mildly to moderately [id number] 30-44 Moderately to severely decreasedG4 15-29 Severely [...] CRP2, BMP3M, MG3, FERR3, HEMDF, LFT3, ICA ####[id number] [place], [place] Potassium [Moles/Vol] 3.7 mmol/L Normal 3.5-5.1 [facility] Comment on above: Performed By: #### P HOS3, LDH3, DDI2, CRP2, BMP3M, MG3, FERR3, HEMDF, LFT3, ICA ####[id number] [place], [place] Sodium [Moles/Vol] 142 mmol/L Normal 135-145 [facility] Comment on above: Performed By: #### P HOS3, LDH3, DDI2, CRP2, BMP3M, MG3, FERR3, HEMDF, LFT3, ICA ####[id number] [place], [place] Chloride [Moles/Vol] 105 mmol/L Normal 98-107 [facility] Comment on above: Performed By: #### P HOS3, LDH3, DDI2, CRP2, BMP3M, MG3, FERR3, HEMDF, LFT3, ICA ####[id number] [place] [id number] C-Reactive Proteinon 021 CRP [Mass/Vol] 7.8 mg/L High 0.0-6.0 [facility] Comment on above: Result Comment: . Performed By: #### P HOS3, LDH3, DDI2, CRP2, BMP3M, MG3, FERR3, HEMDF, LFT3, ICA ####[id number] [place] [id number] CR Chest Portableon 06-17-20 21 CR Chest Portable Normal [facility] Calcium,Ionizedon 06-17-2021 Ionized Ca,Measured 4.40 mg/dL Normal 4.30-5.20 [facility] Comment on above: Performed By: #### P HOS3, LDH3, DDI2, CRP2, BMP3M, MG3, FERR3, HEMDF, LFT3, ICA ####[address] [place] [address] pH, Ionized Calcium 7.46 Normal 7.31-7.46 [facility] Comment on above: Performed By: #### P HOS3, LDH3, DDI2, CRP2, BMP3M, MG3, FERR3, HEMDF, LFT3, ICA ####[address] [place] [address] D-Dimer, Innovanceon 021 D-Dimer, Innovance 13.33 mg/L High <0.19-0.50 [facility] Comment on above: Result Comment: Inno carrington D-Dimer values of <0.50 mg/L FEU can be used incombination with a pre-test probability model (e.g. Well's)to exclude pulmonary embolism (PE) disease, as well as jodi in the diagnosis of deep vein thrombosis (DVT). Performed By: #### P HOS3, LDH3, DDI2, CRP2, BMP3M, MG3, FERR3, HEMDF, LFT3, ICA ####[address] [place] [address] Ferritinon 06-17-2021 Ferritin [Mass/Vol] 209 ng/mL Normal 8-252 [facility] Comment on above: Performed By: #### P HOS3, LDH3, DDI2, CRP2, BMP3M, MG3, FERR3, HEMDF, LFT3, ICA ####[facility] [employer] [id number] [place] [address] Glucose,Bedsideon 06-17-2021 Glucose [Mass/Vol] 239 mg/dL High 70-100 [facility] Comment on above: Result Comment: Test performed by glucose meter. Results may be 10%-15% lowerthan serum/plasma values. (CLIA ID [id number]) Performed By: #### B GLU ####[address] [place] [address] Glucose [Mass/Vol] 268 mg/dL High 70-100 [facility] Comment on above: Result Comment: Test performed by glucose meter. Results may be 10%-15% lowerthan serum/plasma values. (CLIA ID [id number]) Performed By: #### B GLU ####[facility] [employer] [id number] [place] [address] Glucose [Mass/Vol] 252 mg/dL High 70-100 [facility] Comment on above: Result Comment: Test performed by glucose meter. Results may be 10%-15% lowerthan serum/plasma values. (CLIA ID [id number]) Performed By: #### B GLU ####[facility] [employer] [id number] [place] [address] Glucose [Mass/Vol] 260 mg/dL High 70-100 [facility] Comment on above: Result Comment: Test performed by glucose meter. Results may be 10%-15% lowerthan serum/plasma values. (CLIA ID [id number]) Performed By: #### B GLU ####[facility] [employer] [id number] [place] [address] Glucose [Mass/Vol] 272 mg/dL High 70-100 [facility] Comment on above: Result Comment: Test performed by glucose meter. Results may be 10%-15% lowerthan serum/plasma values. (CLIA ID [id number]) Performed By: #### B GLU ####[address] Hemogram w/ Autodiffon 06-17 Abs Baso Cnt 0.0 10*3/uL Normal 0.0-0.2 [facility] Comment on above: Performed By: #### P HOS3, LDH3, DDI2, CRP2, BMP3M, MG3, FERR3, HEMDF, LFT3, ICA ####[address] [place], [place] Abs Neutrophile Cnt 10.8 10*3/uL High 1.8-7.0 [facility] Comment on above: Performed By: #### P HOS3, LDH3, DDI2, CRP2, BMP3M, MG3, FERR3, HEMDF, LFT3, ICA ####[address] Basophils/100 WBC (Bld) 0.1 % Normal 0.0-2.0 [facility] Comment on above: Performed By: #### P HOS3, LDH3, DDI2, CRP2, BMP3M, MG3, FERR3, HEMDF, LFT3, ICA ####[address] Eosinophils (Bld) [#/Vol] 0.0 10*3/uL Normal 0.0-0.5 [facility] Comment on above: Performed By: #### P HOS3, LDH3, DDI2, CRP2, BMP3M, MG3, FERR3, HEMDF, LFT3, ICA ####[address] Eosinophils/100 WBC (Bld) 0.0 % Low 1.0-6.0 [facility] Comment on above: Performed By: #### P HOS3, LDH3, DDI2, CRP2, BMP3M, MG3, FERR3, HEMDF, LFT3, ICA ####[address] Erythrocyte distribution width (RBC) [Ratio] 21.7 % High 11.5-14.5 [facility] Comment on above: Performed By: #### P HOS3, LDH3, DDI2, CRP2, BMP3M, MG3, FERR3, HEMDF, LFT3, ICA ####[address] Granulocytes/100 WBC (Bld) 90.1 % High 40.0-80.0 [facility] Comment on above: Performed By: #### P HOS3, LDH3, DDI2, CRP2, BMP3M, MG3, FERR3, HEMDF, LFT3, ICA ####[address] Hematocrit (Bld) [Volume fraction] 36.3 % Normal 35.0-47.0 [facility] Comment on above: Performed By: #### P HOS3, LDH3, DDI2, CRP2, BMP3M, MG3, FERR3, HEMDF, LFT3, ICA ####[address] Hemoglobin (Bld) [Mass/Vol] 11.3 g/dL Low 11.7-16.0 [facility] Comment on above: Performed By: #### P HOS3, LDH3, DDI2, CRP2, BMP3M, MG3, FERR3, HEMDF, LFT3, ICA ####[address] Lymphocytes (Bld) [#/Vol] 0.6 10*3/uL Low 1.0-4.3 [facility] Comment on above: Performed By: #### P HOS3, LDH3, DDI2, CRP2, BMP3M, MG3, FERR3, HEMDF, LFT3, ICA ####[address] Lymphocytes/100 WBC (Bld) 4.7 % Low 20.0-40.0 [facility] Comment on above: Performed By: #### P HOS3, LDH3, DDI2, CRP2, BMP3M, MG3, FERR3, HEMDF, LFT3, ICA ####[address] MCH (RBC) [Entitic mass] 23.1 pg Low 26.0-34.0 [facility] Comment on above: Performed By: #### P HOS3, LDH3, DDI2, CRP2, BMP3M, MG3, FERR3, HEMDF, LFT3, ICA ####[address] MCHC 31.3 % Low 32.0-36.0 [facility] Comment on above: Performed By: #### P HOS3, LDH3, DDI2, CRP2, BMP3M, MG3, FERR3, HEMDF, LFT3, ICA ####[address] MCV (RBC) [Entitic vol] 74.0 fL Low 79.0-98.0 [facility] Comment on above: Performed By: #### P HOS3, LDH3, DDI2, CRP2, BMP3M, MG3, FERR3, HEMDF, LFT3, ICA ####[address] Monocytes (Bld) [#/Vol] 0.6 10*3/uL Normal 0.0-0.8 [facility] Comment on above: Performed By: #### P HOS3, LDH3, DDI2, CRP2, BMP3M, MG3, FERR3, HEMDF, LFT3, ICA ####[address] Monocytes/100 WBC (Bld) 5.1 % Normal 2.0-10.0 [facility] Comment on above: Performed By: #### P HOS3, LDH3, DDI2, CRP2, BMP3M, MG3, FERR3, HEMDF, LFT3, ICA ####[address] Platelet mean volume (Bld) [Entitic vol] 9.4 fL Normal 7.4-10.4 [facility] Comment on above: Performed By: #### P HOS3, LDH3, DDI2, CRP2, BMP3M, MG3, FERR3, HEMDF, LFT3, ICA ####[address] Platelets (Bld) [#/Vol] 148 10*3/uL Normal 140-440 [facility] Comment on above: Performed By: #### P HOS3, LDH3, DDI2, CRP2, BMP3M, MG3, FERR3, HEMDF, LFT3, ICA ####[address] RBC (Bld) [#/Vol] 4.91 10*6/uL Normal 3.80-5.20 [facility] Comment on above: Performed By: #### P HOS3, LDH3, DDI2, CRP2, BMP3M, MG3, FERR3, HEMDF, LFT3, ICA ####[address] [place], [place] WBC (Bld) [#/Vol] 12.0 10*3/uL High 3.6-10.7 [facility] Comment on above: Performed By: #### P HOS3, LDH3, DDI2, CRP2, BMP3M, MG3, FERR3, HEMDF, LFT3, ICA ####[address] Hepatic Functionon 1 ALP [Catalytic activity/Vol] 87 U/L Normal 38-126 [facility] Comment on above: Performed By: #### P HOS3, LDH3, DDI2, CRP2, BMP3M, MG3, FERR3, HEMDF, LFT3, ICA ####[address] ALT [Catalytic activity/Vol] 102 U/L High 0-34 [facility] Comment on above: Result Comment: The ALT test is performed by an updated assay method.Please note that the reference intervals have beenchanged and are now sex specific. Performed By: #### P HOS3, LDH3, DDI2, CRP2, BMP3M, MG3, FERR3, HEMDF, LFT3, ICA ####[address] [place], [place] AST [Catalytic activity/Vol] 55 U/L High 15-46 [facility] Comment on above: Performed By: #### P HOS3, LDH3, DDI2, CRP2, BMP3M, MG3, FERR3, HEMDF, LFT3, ICA ####[address] [place], [place] Bilirubin [Mass/Vol] 0.7 mg/dL Normal 0.2-1.3 [facility] Comment on above: Performed By: #### P HOS3, LDH3, DDI2, CRP2, BMP3M, MG3, FERR3, HEMDF, LFT3, ICA ####[address] Bilirubin.indirect [Mass/Vol] 0.0 mg/dL Normal 0.0-0.3 [facility] Comment on above: Performed By: #### P HOS3, LDH3, DDI2, CRP2, BMP3M, MG3, FERR3, HEMDF, LFT3, ICA ####[address] Protein [Mass/Vol] 6.4 g/dL Normal 6.3-8.2 [facility] Comment on above: Performed By: #### P HOS3, LDH3, DDI2, CRP2, BMP3M, MG3, FERR3, HEMDF, LFT3, ICA ####[address] [place], [place] Albumin [Mass/Vol] 3.3 g/dL Low 3.5-5.0 [facility] Comment on above: Performed By: #### P HOS3, LDH3, DDI2, CRP2, BMP3M, MG3, FERR3, HEMDF, LFT3, ICA ####[address] [place] [address] LDHon 06-17-2021 LDH 374 U/L High 120-246 [facility] Comment on above: Performed By: #### P HOS3, LDH3, DDI2, CRP2, BMP3M, MG3, FERR3, HEMDF, LFT3, ICA ####[address] [place] [address] Magnesiumon 06-17-2021 Magnesium [Mass/Vol] 2.5 mg/dL High 1.6-2.3 [facility] Comment on above: Performed By: #### P HOS3, LDH3, DDI2, CRP2, BMP3M, MG3, FERR3, HEMDF, LFT3, ICA ####[address] Phosphoruson 06-17-2021 Phosphate [Mass/Vol] 4.1 mg/dL Normal 2.5-4.5 [facility] Comment on above: Performed By: #### P HOS3, LDH3, DDI2, CRP2, BMP3M, MG3, FERR3, HEMDF, LFT3, ICA ####[address] [place] [address] Arterial Blood Gaseson 06-16 CO2 [Moles/Vol] 32.9 mmol/L High 23.0-27.0 [facility] Comment on above: Performed By: #### A BG ####[address] [place], [place] HCO3 (Bld) [Moles/Vol] 31.6 mmol/L High 21.0-25.0 [facility] Comment on above: Performed By: #### A BG ####[address] [place], [place] Hemoglobin (Bld) [Mass/Vol] 12.7 g/dL Normal ScreenOnly [facility] Comment on above: Performed By: #### A BG ####[address] Oxygen (Bld) [Partial pressure] 84.9 mm[Hg] Normal 80.0-100.0 [facility] Comment on above: Performed By: #### A BG ####[address] Oxygen saturation in Blood 95.6 % Normal 95.0-100.0 [facility] Comment on above: Performed By: #### A BG ####[address] pCO2 42.5 mm[Hg] Normal 35.0-45.0 [facility] Comment on above: Performed By: #### A BG ####[address] pH 7.489 High 7.350-7.450 [facility] Comment on above: Performed By: #### A BG ####[address] Std Base Excess 7.5 mmol/L High -3.0-3.0 [facility] Comment on above: Performed By: #### A BG ####[address] FIO2 No data Normal [facility] Comment on above: Performed By: #### A BG ####[address] Basic Metabolic Panelon 07- Chloride [Moles/Vol] 107 mmol/L Normal 98-107 [facility] Comment on above: Performed By: #### C RP2, BMP3M, FERR3, LDH3, DDI2, MG3, ICA, LFT3, PHOS3 ####[address] [place], [place] Sodium [Moles/Vol] 145 mmol/L Normal 135-145 [facility] Comment on above: Performed By: #### C RP2, BMP3M, FERR3, LDH3, DDI2, MG3, ICA, LFT3, PHOS3 ####[address] [place], [place] Calcium [Mass/Vol] 8.8 mg/dL Normal 8.4-10.4 [facility] Comment on above: Performed By: #### C RP2, BMP3M, FERR3, LDH3, DDI2, MG3, ICA, LFT3, PHOS3 ####[address] [place] Anion gap [Moles/Vol] 6 mmol/L Normal 3-13 [facility] Comment on above: Performed By: #### C RP2, BMP3M, FERR3, LDH3, DDI2, MG3, ICA, LFT3, PHOS3 ####[address] [place] CO2 [Moles/Vol] 32 mmol/L High 22-30 [facility] Comment on above: Performed By: #### C RP2, BMP3M, FERR3, LDH3, DDI2, MG3, ICA, LFT3, PHOS3 ####[address] [place], [place] Glucose [Mass/Vol] 223 mg/dL High 70-100 [facility] Comment on above: Performed By: #### C RP2, BMP3M, FERR3, LDH3, DDI2, MG3, ICA, LFT3, PHOS3 ####[address] [place], [place] Urea nitrogen [Mass/Vol] 56 mg/dL High 7-20 [facility] Comment on above: Performed By: #### C RP2, BMP3M, FERR3, LDH3, DDI2, MG3, ICA, LFT3, PHOS3 ####[address] [place], [place] Creatinine [Mass/Vol] 0.90 mg/dL Normal 0.52-1.25 [facility] Comment on above: Performed By: #### C RP2, BMP3M, FERR3, LDH3, DDI2, MG3, ICA, LFT3, PHOS3 ####[address] [place], [place] GFR/1.73 sq M.predicted among blacks MDRD (S/P/Bld) [Vol rate/Area] 84.4 mL/min/{1.73_m2} Normal >60 [facility] Comment on above: Performed By: #### C RP2, BMP3M, FERR3, LDH3, DDI2, MG3, ICA, LFT3, PHOS3 ####[address] [place], [place] GFR/1.73 sq M.predicted among non-blacks MDRD (S/P/Bld) [Vol rate/Area] 72.8 mL/min/{1.73_m2} Normal >60 [facility] Comment on above: Result Comment: KDIG O guidelines provide the following GFR categories:Stage GFR(ml/min/1.73 m2) TermsG1 >=90 Normal or highG2 60-89 Mildly decreased*G3a 45-59 Mildly to moderately [id number] 30-44 Moderately to severely decreasedG4 15-29 Severely [...] FERR3, LDH3, DDI2, MG3, ICA, LFT3, PHOS3 ####[facility] [employer] [id number] [place], [place] Potassium [Moles/Vol] 4.2 mmol/L Normal 3.5-5.1 [facility] Comment on above: Performed By: #### C RP2, BMP3M, FERR3, LDH3, DDI2, MG3, ICA, LFT3, PHOS3 ####[address] C-Reactive Proteinon 021 CRP [Mass/Vol] 7.8 mg/L High 0.0-6.0 [facility] Comment on above: Result Comment: . Performed By: #### C RP2, BMP3M, FERR3, LDH3, DDI2, MG3, ICA, LFT3, PHOS3 ####[address] [place], [place] CR Chest Portableon 06-16-20 21 CR Chest Portable Normal [facility] Calcium,Ionizedon 06-16-2021 Ionized Ca,Measured 4.40 mg/dL Normal 4.30-5.20 [facility] Comment on above: Performed By: #### C RP2, BMP3M, FERR3, LDH3, DDI2, MG3, ICA, LFT3, PHOS3 ####[facility] [employer] [id number] [place], [place] pH, Ionized Calcium 7.51 High 7.31-7.46 [facility] Comment on above: Performed By: #### C RP2, BMP3M, FERR3, LDH3, DDI2, MG3, ICA, LFT3, PHOS3 ####[facility] [employer] [address] [place], [place] Complete Urinalysison 2020 Appearance (U) Ex.Turbid Abnormal Clear [facility] Comment on above: Result Comment: . Performed By: #### C UA2 ####[facility] [employer] [id number] [place], [place] Bacteria Moderate Abnormal Negative [facility] Comment on above: Result Comment: . Performed By: #### C UA2 ####[facility] [employer] [address] Bilirubin,Urine Negative Normal Negative [facility] Comment on above: Result Comment: . Performed By: #### C UA2 ####[facility] [employer] [address] Color (U) Light-Yellow Normal Lt. Yellow [facility] Comment on above: Result Comment: . Performed By: #### C UA2 ####[address] [place], [place] Glucose Ql (U) Normal Normal Normal (<70) [facility] Comment on above: Result Comment: . Performed By: #### C UA2 ####[address] [place], [place] Ketone,Urine Negative Normal Negative [facility] Comment on above: Result Comment: . Performed By: #### C UA2 ####[address] [place], [place] Leukocytes,Urine 250 [place]/uL Abnormal Negative [facility] Comment on above: Result Comment: . Performed By: #### C UA2 ####[address] [place], [place] Mucous Threads Many Abnormal Negative [facility] Comment on above: Result Comment: . Performed By: #### C UA2 ####[address] [place], [place] Nitrites,Urine Negative Normal Negative [facility] Comment on above: Result Comment: . Performed By: #### C UA2 ####[address] Occult Blood,Urine > 1.0 Abnormal Negative [facility] Comment on above: Result Comment: . Performed By: #### C UA2 ####[address] [place], [place] pH,Urine 5.5 Normal 5.0-8.0 [facility] Comment on above: Result Comment: . Performed By: #### C UA2 ####[address] RBC LM.HPF (Urine sed) [#/Area] /[HPF] Abnormal 0-2 [facility] Comment on above: Result Comment: . Performed By: #### C UA2 ####[address] Specific Diggs,Urine 1.008 Normal 1.005 - 1.030 [facility] Comment on above: Result Comment: . Performed By: #### C UA2 ####[facility] [place] [address] Squamous Epithelial 0 - 2 Normal 3-5 [facility] Comment on above: Result Comment: . Performed By: #### C UA2 ####[address] [place] [address] Total Protein,Urine Negative Normal Negative [facility] Comment on above: Result Comment: . Performed By: #### C UA2 ####[address] [place] [address] Uric Acid Crystals Few Abnormal Negative [facility] Comment on above: Result Comment: . Performed By: #### C UA2 ####[address] [place] [address] Urobilinogen,Urine Normal Normal Normal (0-1) [facility] Comment on above: Result Comment: . Performed By: #### C UA2 ####[address] [place] [address] WBC, Urine 11 - 25 Abnormal 0-5 [facility] Comment on above: Result Comment: . Performed By: #### C UA2 ####[address] [place] [address] D-Dimer, Innovanceon 021 D-Dimer, Innov[employer] 23.52 mg/L High <0.19-0.50 [facility] Comment on above: Result Comment: Inno carrington D-Dimer values of <0.50 mg/L FEU can be used incombination with a pre-test probability model (e.g. Well's)to exclude pulmonary embolism (PE) disease, as well as jodi in the diagnosis of deep vein thrombosis (DVT). Performed By: #### C RP2, BMP3M, FERR3, LDH3, DDI2, MG3, ICA, LFT3, PHOS3 ####[address] [place] [address] Ferritinon 06-16-2021 Ferritin [Mass/Vol] 291 ng/mL High 8-252 [facility] Comment on above: Performed By: #### C RP2, BMP3M, FERR3, LDH3, DDI2, MG3, ICA, LFT3, PHOS3 ####[address] [place] [address] Glucose,Bedsideon 06-16-2021 Glucose [Mass/Vol] 252 mg/dL High 70-100 [facility] Comment on above: Result Comment: Test performed by glucose meter. Results may be 10%-15% lowerthan serum/plasma values. (CLIA ID [id number]) Performed By: #### B GLU ####[address] [place] [address] Glucose [Mass/Vol] 273 mg/dL High 70-100 [facility] Comment on above: Result Comment: Test performed by glucose meter. Results may be 10%-15% lowerthan serum/plasma values. (CLIA ID [id number]) Performed By: #### B GLU ####[facility] [employer] [id number] [place] [address] Glucose [Mass/Vol] 220 mg/dL High 70-100 [facility] Comment on above: Result Comment: Test performed by glucose meter. Results may be 10%-15% lowerthan serum/plasma values. (CLIA ID [id number]) Performed By: #### B GLU ####[address] [place] [address] Glucose [Mass/Vol] 215 mg/dL High 70-100 [facility] Comment on above: Result Comment: Test performed by glucose meter. Results may be 10%-15% lowerthan serum/plasma values. (CLIA ID [id number]) Performed By: #### B GLU ####[address] [place] [address] Hepatic Functionon Albumin [Mass/Vol] 3.4 g/dL Low 3.5-5.0 [facility] Comment on above: Performed By: #### C RP2, BMP3M, FERR3, LDH3, DDI2, MG3, ICA, LFT3, PHOS3 ####[address] [place], [place] ALP [Catalytic activity/Vol] 83 U/L Normal 38-126 [facility] Comment on above: Performed By: #### C RP2, BMP3M, FERR3, LDH3, DDI2, MG3, ICA, LFT3, PHOS3 ####[address] [place], [place] ALT [Catalytic activity/Vol] 133 U/L High 0-34 [facility] Comment on above: Result Comment: The ALT test is performed by an updated assay method.Please note that the reference intervals have beenchanged and are now sex specific. Performed By: #### C RP2, BMP3M, FERR3, LDH3, DDI2, MG3, ICA, LFT3, PHOS3 ####[address] [place], [place] AST [Catalytic activity/Vol] 110 U/L High 15-46 [facility] Comment on above: Performed By: #### C RP2, BMP3M, FERR3, LDH3, DDI2, MG3, ICA, LFT3, PHOS3 ####[address] [place], [place] Bilirubin [Mass/Vol] 0.8 mg/dL Normal 0.2-1.3 [facility] Comment on above: Performed By: #### C RP2, BMP3M, FERR3, LDH3, DDI2, MG3, ICA, LFT3, PHOS3 ####[address] [place], [place] Protein [Mass/Vol] 6.6 g/dL Normal 6.3-8.2 [facility] Comment on above: Performed By: #### C RP2, BMP3M, FERR3, LDH3, DDI2, MG3, ICA, LFT3, PHOS3 ####[address] [place], [place] Bilirubin.indirect [Mass/Vol] 0.0 mg/dL Normal 0.0-0.3 [facility] Comment on above: Performed By: #### C RP2, BMP3M, FERR3, LDH3, DDI2, MG3, ICA, LFT3, PHOS3 ####[address] [place] [address] LDHon 06-16-2021 LDH 446 U/L High 120-246 [facility] Comment on above: Performed By: #### C RP2, BMP3M, FERR3, LDH3, DDI2, MG3, ICA, LFT3, PHOS3 ####[address] [address] Lactic Acidon 06-16-2021 Lactate [Moles/Vol] 0.9 mmol/L Normal 0.7-2.0 [facility] Comment on above: Performed By: #### L ACT3, PCAL ####[address] [address] Magnesiumon 06-16-2021 Magnesium [Mass/Vol] 2.6 mg/dL High 1.6-2.3 [facility] Comment on above: Performed By: #### C RP2, BMP3M, FERR3, LDH3, DDI2, MG3, ICA, LFT3, PHOS3 ####[address] [place] [address] Phosphoruson 06-16-2021 Phosphate [Mass/Vol] 4.5 mg/dL Normal 2.5-4.5 [facility] Comment on above: Performed By: #### C RP2, BMP3M, FERR3, LDH3, DDI2, MG3, ICA, LFT3, PHOS3 ####[address] [address] Procalcitoninon 06-16-2021 Procalcitonin 0.08 ng/mL Normal 0.00-0.09 [facility] Comment on above: Performed By: #### P OLESYA ####[address] [address] Procalcitonin 0.08 ng/mL Normal 0.00-0.09 [facility] Comment on above: Performed By: #### L ACT3, PCAL ####[address] [place], [place] Interpretation See Below Normal [facility] Comment on above: Result Comment: PCT <0.50 = Low risk of severe sepsis and/or septic shock.PCT >2.00 = High risk of severe sepsis and/or septic shock. Performed By: #### P OLESYA ####[address] Interpretation See Below Normal [facility] Comment on above: Result Comment: PCT <0.50 = Low risk of severe sepsis and/or septic shock.PCT >2.00 = High risk of severe sepsis and/or septic shock. Performed By: #### L ACT3, PCAL ####[address] Sodiumon 06-16-2021 Sodium [Moles/Vol] 144 mmol/L Normal 135-145 [facility] Comment on above: Performed By: #### N A3 ####[address] Staph Aureus Complete Nasalo n 06-16-2021 Staph Aureus Complete Nasal Normal [facility] Comment on above: Performed By: #### S APCR ####[address] Arterial Blood Gaseson 06-15 CO2 [Moles/Vol] 34.5 mmol/L High 23.0-27.0 [facility] Comment on above: Performed By: #### A BG ####[address] HCO3 (Bld) [Moles/Vol] 33.2 mmol/L High 21.0-25.0 [facility] Comment on above: Performed By: #### A BG ####[address] Hemoglobin (Bld) [Mass/Vol] 13.3 g/dL Normal ScreenOnly [facility] Comment on above: Performed By: #### A BG ####[id number] [place], [place] Oxygen (Bld) [Partial pressure] 68.3 mm[Hg] Low 80.0-100.0 [facility] Comment on above: Performed By: #### A BG ####[address] [address] [place], [place] Oxygen saturation in Blood 92.8 % Low 95.0-100.0 [facility] Comment on above: Performed By: #### A BG ####[address] [address] [place] [place], [place] pCO2 41.8 mm[Hg] Normal 35.0-45.0 [facility] Comment on above: Performed By: #### A BG ####[address] pH 7.518 High 7.350-7.450 [facility] Comment on above: Performed By: #### A BG ####[address] Std Base Excess 9.4 mmol/L High -3.0-3.0 [facility] Comment on above: Performed By: #### A BG ####[address] FIO2 No data Normal [facility] Comment on above: Performed By: #### A BG ####[address] Basic Metabolic Panelon - Calcium [Mass/Vol] 9.1 mg/dL Normal 8.4-10.4 [facility] Comment on above: Performed By: #### I CA, DDI2, PHOS3, CRP2, MG3, BMP3M, HEMDF, LFT3, LDH3, FERR3 ####[address] Glucose [Mass/Vol] 157 mg/dL High 70-100 [facility] Comment on above: Performed By: #### I CA, DDI2, PHOS3, CRP2, MG3, BMP3M, HEMDF, LFT3, LDH3, FERR3 ####[address] [place], [place] Anion gap [Moles/Vol] 5 mmol/L Normal 3-13 [facility] Comment on above: Performed By: #### I CA, DDI2, PHOS3, CRP2, MG3, BMP3M, HEMDF, LFT3, LDH3, FERR3 ####[address] [place], [place] CO2 [Moles/Vol] 36 mmol/L High 22-30 [facility] Comment on above: Performed By: #### I CA, DDI2, PHOS3, CRP2, MG3, BMP3M, HEMDF, LFT3, LDH3, FERR3 ####[address] Urea nitrogen [Mass/Vol] 51 mg/dL High 7-20 [facility] Comment on above: Performed By: #### I CA, DDI2, PHOS3, CRP2, MG3, BMP3M, HEMDF, LFT3, LDH3, FERR3 ####[address] Creatinine [Mass/Vol] 0.88 mg/dL Normal 0.52-1.25 [facility] Comment on above: Performed By: #### I CA, DDI2, PHOS3, CRP2, MG3, BMP3M, HEMDF, LFT3, LDH3, FERR3 ####[address] GFR/1.73 sq M.predicted among blacks MDRD (S/P/Bld) [Vol rate/Area] 86.7 mL/min/{1.73_m2} Normal >60 [facility] Comment on above: Performed By: #### I CA, DDI2, PHOS3, CRP2, MG3, BMP3M, HEMDF, LFT3, LDH3, FERR3 ####[address] GFR/1.73 sq M.predicted among non-blacks MDRD (S/P/Bld) [Vol rate/Area] 74.8 mL/min/{1.73_m2} Normal >60 [facility] Comment on above: Result Comment: KDIG O guidelines provide the following GFR categories:Stage GFR(ml/min/1.73 m2) TermsG1 >=90 Normal or highG2 60-89 Mildly decreased*G3a 45-59 Mildly to moderately [id number] 30-44 Moderately to severely decreasedG4 15-29 Severely [...] CRP2, MG3, BMP3M, HEMDF, LFT3, LDH3, FERR3 ####[address] [place], [place] Potassium [Moles/Vol] 4.5 mmol/L Normal 3.5-5.1 [facility] Comment on above: Performed By: #### I CA, DDI2, PHOS3, CRP2, MG3, BMP3M, HEMDF, LFT3, LDH3, FERR3 ####[address] [place], [place] Sodium [Moles/Vol] 146 mmol/L High 135-145 [facility] Comment on above: Performed By: #### I CA, DDI2, PHOS3, CRP2, MG3, BMP3M, HEMDF, LFT3, LDH3, FERR3 ####[address] [place] [address] Chloride [Moles/Vol] 106 mmol/L Normal 98-107 [facility] Comment on above: Performed By: #### I CA, DDI2, PHOS3, CRP2, MG3, BMP3M, HEMDF, LFT3, LDH3, FERR3 ####[address] [place] [address] C-Reactive Proteinon 021 CRP [Mass/Vol] 7.0 mg/L High 0.0-6.0 [facility] Comment on above: Result Comment: . Performed By: #### I CA, DDI2, PHOS3, CRP2, MG3, BMP3M, HEMDF, LFT3, LDH3, FERR3 ####[address] [place] [address] CR Chest Portableon 06-15-20 21 CR Chest Portable Normal [facility] Calcium,Ionizedon 06-15-2021 Ionized Ca,Measured 4.00 mg/dL Low 4.30-5.20 [facility] Comment on above: Performed By: #### I CA, DDI2, PHOS3, CRP2, MG3, BMP3M, HEMDF, LFT3, LDH3, FERR3 ####[address] [address] pH, Ionized Calcium 7.52 High 7.31-7.46 [facility] Comment on above: Performed By: #### I CA, DDI2, PHOS3, CRP2, MG3, BMP3M, HEMDF, LFT3, LDH3, FERR3 ####[address] [address] D-Dimer, Innovanceon 021 D-Dimer, Innovance 25.22 mg/L High <0.19-0.50 [facility] Comment on above: Result Comment: Inno carrington D-Dimer values of <0.50 mg/L FEU can be used incombination with a pre-test probability model (e.g. Well's)to exclude pulmonary embolism (PE) disease, as well as jodi in the diagnosis of deep vein thrombosis (DVT). Performed By: #### I CA, DDI2, PHOS3, CRP2, MG3, BMP3M, HEMDF, LFT3, LDH3, FERR3 ####[facility] [employer] [id number] [place] [address] Ferritinon 06-15-2021 Ferritin [Mass/Vol] 123 ng/mL Normal 8-252 [facility] Comment on above: Performed By: #### I CA, DDI2, PHOS3, CRP2, MG3, BMP3M, HEMDF, LFT3, LDH3, FERR3 ####[facility] [employer] [id number] [place] [address] Glucose,Bedsideon 06-15-2021 Glucose [Mass/Vol] 163 mg/dL High 70-100 [facility] Comment on above: Result Comment: Test performed by glucose meter. Results may be 10%-15% lowerthan serum/plasma values. (CLIA ID [id number]) Performed By: #### B GLU ####[facility] [employer] [id number] [place] [address] Glucose [Mass/Vol] 187 mg/dL High 70-100 [facility] Comment on above: Result Comment: Test performed by glucose meter. Results may be 10%-15% lowerthan serum/plasma values. (CLIA ID [id number]) Performed By: #### B GLU ####[facility] [address] [place] [address] Glucose [Mass/Vol] 148 mg/dL High 70-100 [facility] Comment on above: Result Comment: Test performed by glucose meter. Results may be 10%-15% lowerthan serum/plasma values. (CLIA ID [id number]) Performed By: #### B GLU ####[facility] [employer] [id number] [place] [address] Glucose [Mass/Vol] 186 mg/dL High 70-100 [facility] Comment on above: Result Comment: Test performed by glucose meter. Results may be 10%-15% lowerthan serum/plasma values. (CLIA ID [id number]) Performed By: #### B GLU ####[facility] [employer] [id number] [place] [address] Hemogram w/ Autodiffon 06-15 Abs Baso Cnt 0.0 10*3/uL Normal 0.0-0.2 [facility] Comment on above: Performed By: #### I CA, DDI2, PHOS3, CRP2, MG3, BMP3M, HEMDF, LFT3, LDH3, FERR3 ####[address] Abs Neutrophile Cnt 12.2 10*3/uL High 1.8-7.0 [facility] Comment on above: Performed By: #### I CA, DDI2, PHOS3, CRP2, MG3, BMP3M, HEMDF, LFT3, LDH3, FERR3 ####[address] Basophils/100 WBC (Bld) 0.2 % Normal 0.0-2.0 [facility] Comment on above: Performed By: #### I CA, DDI2, PHOS3, CRP2, MG3, BMP3M, HEMDF, LFT3, LDH3, FERR3 ####[address] Eosinophils (Bld) [#/Vol] 0.0 10*3/uL Normal 0.0-0.5 [facility] Comment on above: Performed By: #### I CA, DDI2, PHOS3, CRP2, MG3, BMP3M, HEMDF, LFT3, LDH3, FERR3 ####[address] Eosinophils/100 WBC (Bld) 0.0 % Low 1.0-6.0 [facility] Comment on above: Performed By: #### I CA, DDI2, PHOS3, CRP2, MG3, BMP3M, HEMDF, LFT3, LDH3, FERR3 ####[address] Erythrocyte distribution width (RBC) [Ratio] 21.8 % High 11.5-14.5 [facility] Comment on above: Performed By: #### I CA, DDI2, PHOS3, CRP2, MG3, BMP3M, HEMDF, LFT3, LDH3, FERR3 ####[address] Granulocytes/100 WBC (Bld) 84.4 % High 40.0-80.0 [facility] Comment on above: Performed By: #### I CA, DDI2, PHOS3, CRP2, MG3, BMP3M, HEMDF, LFT3, LDH3, FERR3 ####[address] Hematocrit (Bld) [Volume fraction] 39.6 % Normal 35.0-47.0 [facility] Comment on above: Performed By: #### I CA, DDI2, PHOS3, CRP2, MG3, BMP3M, HEMDF, LFT3, LDH3, FERR3 ####[address] Hemoglobin (Bld) [Mass/Vol] 12.4 g/dL Normal 11.7-16.0 [facility] Comment on above: Performed By: #### I CA, DDI2, PHOS3, CRP2, MG3, BMP3M, HEMDF, LFT3, LDH3, FERR3 ####[address] Lymphocytes (Bld) [#/Vol] 0.9 10*3/uL Low 1.0-4.3 [facility] Comment on above: Performed By: #### I CA, DDI2, PHOS3, CRP2, MG3, BMP3M, HEMDF, LFT3, LDH3, FERR3 ####[address] Lymphocytes/100 WBC (Bld) 6.3 % Low 20.0-40.0 [facility] Comment on above: Performed By: #### I CA, DDI2, PHOS3, CRP2, MG3, BMP3M, HEMDF, LFT3, LDH3, FERR3 ####[address] MCH (RBC) [Entitic mass] 22.8 pg Low 26.0-34.0 [facility] Comment on above: Performed By: #### I CA, DDI2, PHOS3, CRP2, MG3, BMP3M, HEMDF, LFT3, LDH3, FERR3 ####[address] [place], [place] MCHC 31.2 % Low 32.0-36.0 [facility] Comment on above: Performed By: #### I CA, DDI2, PHOS3, CRP2, MG3, BMP3M, HEMDF, LFT3, LDH3, FERR3 ####[address] [place], [place] MCV (RBC) [Entitic vol] 73.1 fL Low 79.0-98.0 [facility] Comment on above: Performed By: #### I CA, DDI2, PHOS3, CRP2, MG3, BMP3M, HEMDF, LFT3, LDH3, FERR3 ####[address] [place], [place] Monocytes (Bld) [#/Vol] 1.3 10*3/uL High 0.0-0.8 [facility] Comment on above: Performed By: #### I CA, DDI2, PHOS3, CRP2, MG3, BMP3M, HEMDF, LFT3, LDH3, FERR3 ####[address] [place], [place] Monocytes/100 WBC (Bld) 9.1 % Normal 2.0-10.0 [facility] Comment on above: Performed By: #### I CA, DDI2, PHOS3, CRP2, MG3, BMP3M, HEMDF, LFT3, LDH3, FERR3 ####[address] [place], [place] Platelet mean volume (Bld) [Entitic vol] 8.7 fL Normal 7.4-10.4 [facility] Comment on above: Performed By: #### I CA, DDI2, PHOS3, CRP2, MG3, BMP3M, HEMDF, LFT3, LDH3, FERR3 ####[address] [place], [place] Platelets (Bld) [#/Vol] 209 10*3/uL Normal 140-440 [facility] Comment on above: Performed By: #### I CA, DDI2, PHOS3, CRP2, MG3, BMP3M, HEMDF, LFT3, LDH3, FERR3 ####[address] [place], [place] RBC (Bld) [#/Vol] 5.42 10*6/uL High 3.80-5.20 [facility] Comment on above: Performed By: #### I CA, DDI2, PHOS3, CRP2, MG3, BMP3M, HEMDF, LFT3, LDH3, FERR3 ####[address] [place], [place] WBC (Bld) [#/Vol] 14.4 10*3/uL High 3.6-10.7 [facility] Comment on above: Performed By: #### I CA, DDI2, PHOS3, CRP2, MG3, BMP3M, HEMDF, LFT3, LDH3, FERR3 ####[address] Hepatic Functionon 1 ALP [Catalytic activity/Vol] 87 U/L Normal 38-126 [facility] Comment on above: Performed By: #### I CA, DDI2, PHOS3, CRP2, MG3, BMP3M, HEMDF, LFT3, LDH3, FERR3 ####[address] ALT [Catalytic activity/Vol] 68 U/L High 0-34 [facility] Comment on above: Result Comment: The ALT test is performed by an updated assay method.Please note that the reference intervals have beenchanged and are now sex specific. Performed By: #### I CA, DDI2, PHOS3, CRP2, MG3, BMP3M, HEMDF, LFT3, LDH3, FERR3 ####[address] AST [Catalytic activity/Vol] 61 U/L High 15-46 [facility] Comment on above: Performed By: #### I CA, DDI2, PHOS3, CRP2, MG3, BMP3M, HEMDF, LFT3, LDH3, FERR3 ####[address] [place], [place] Bilirubin [Mass/Vol] 0.9 mg/dL Normal 0.2-1.3 [facility] Comment on above: Performed By: #### I CA, DDI2, PHOS3, CRP2, MG3, BMP3M, HEMDF, LFT3, LDH3, FERR3 ####[address] Bilirubin.indirect [Mass/Vol] 0.0 mg/dL Normal 0.0-0.3 [facility] Comment on above: Performed By: #### I CA, DDI2, PHOS3, CRP2, MG3, BMP3M, HEMDF, LFT3, LDH3, FERR3 ####[address] Protein [Mass/Vol] 6.9 g/dL Normal 6.3-8.2 [facility] Comment on above: Performed By: #### I CA, DDI2, PHOS3, CRP2, MG3, BMP3M, HEMDF, LFT3, LDH3, FERR3 ####[address] Albumin [Mass/Vol] 3.6 g/dL Normal 3.5-5.0 [facility] Comment on above: Performed By: #### I CA, DDI2, PHOS3, CRP2, MG3, BMP3M, HEMDF, LFT3, LDH3, FERR3 ####[address] LDHon 06-15-2021 LDH 446 U/L High 120-246 [facility] Comment on above: Performed By: #### I CA, DDI2, PHOS3, CRP2, MG3, BMP3M, HEMDF, LFT3, LDH3, FERR3 ####[address] [place], [place] Magnesiumon 06-15-2021 Magnesium [Mass/Vol] 2.5 mg/dL High 1.6-2.3 [facility] Comment on above: Performed By: #### I CA, DDI2, PHOS3, CRP2, MG3, BMP3M, HEMDF, LFT3, LDH3, FERR3 ####[address] [place], [place] Phosphoruson 06-15-2021 Phosphate [Mass/Vol] 4.2 mg/dL Normal 2.5-4.5 [facility] Comment on above: Performed By: #### I CA, DDI2, PHOS3, CRP2, MG3, BMP3M, HEMDF, LFT3, LDH3, FERR3 ####[address] [place], [place] STAIN GRAMon 06-15-2021 STAIN GRAM Normal [facility] Comment on above: Performed By: #### C S/RE ####[address] [place] [address] [address] [place], [place] #### S/GRM ####[address] VL Venous Duplex US Lower Ex t Bilateralon 06-15-2021 VL Venous Duplex US Lower Ext Bilateral Normal [facility] Arterial Blood Gaseson 06-14 CO2 [Moles/Vol] 33.3 mmol/L High 23.0-27.0 [facility] Comment on above: Performed By: #### A BG ####[address] [address] [place] HCO3 (Bld) [Moles/Vol] 32.0 mmol/L High 21.0-25.0 [facility] Comment on above: Performed By: #### A BG ####[address] Hemoglobin (Bld) [Mass/Vol] 12.4 g/dL Normal ScreenOnly [facility] Comment on above: Performed By: #### A BG ####[address] [place], [place] Oxygen (Bld) [Partial pressure] 83.7 mm[Hg] Normal 80.0-100.0 [facility] Comment on above: Performed By: #### A BG ####[address] [place], [place] Oxygen saturation in Blood 95.6 % Normal 95.0-100.0 [facility] Comment on above: Performed By: #### A BG ####[address] [place], [place] pCO2 41.9 mm[Hg] Normal 35.0-45.0 [facility] Comment on above: Performed By: #### A BG ####[address] pH 7.501 High 7.350-7.450 [facility] Comment on above: Performed By: #### A BG ####[address] Std Base Excess 8.1 mmol/L High -3.0-3.0 [facility] Comment on above: Performed By: #### A BG ####[address] FIO2 No data Normal [facility] Comment on above: Performed By: #### A BG ####[address] Basic Metabolic Panelon 07-1 Calcium [Mass/Vol] 9.1 mg/dL Normal 8.4-10.4 [facility] Comment on above: Performed By: #### F ERR3, CRP2, LDH3, LFT3, PHOS3, DDI2, BMP3M, ICA, MG3, HEMDF ####[address] [place], [place] Anion gap [Moles/Vol] 5 mmol/L Normal 3-13 [facility] Comment on above: Performed By: #### F ERR3, CRP2, LDH3, LFT3, PHOS3, DDI2, BMP3M, ICA, MG3, HEMDF ####[address] [place], [place] CO2 [Moles/Vol] 33 mmol/L High 22-30 [facility] Comment on above: Performed By: #### F ERR3, CRP2, LDH3, LFT3, PHOS3, DDI2, BMP3M, ICA, MG3, HEMDF ####[address] [place], [place] Glucose [Mass/Vol] 134 mg/dL High 70-100 [facility] Comment on above: Performed By: #### F ERR3, CRP2, LDH3, LFT3, PHOS3, DDI2, BMP3M, ICA, MG3, HEMDF ####[address] Urea nitrogen [Mass/Vol] 53 mg/dL High 7-20 [facility] Comment on above: Performed By: #### F ERR3, CRP2, LDH3, LFT3, PHOS3, DDI2, BMP3M, ICA, MG3, HEMDF ####[address] [place], [place] Creatinine [Mass/Vol] 0.73 mg/dL Normal 0.52-1.25 [facility] Comment on above: Performed By: #### F ERR3, CRP2, LDH3, LFT3, PHOS3, DDI2, BMP3M, ICA, MG3, HEMDF ####[address] [place], [place] eGFR OTHER > 90.0 Normal >60 [facility] Comment on above: Result Comment: KDIG O guidelines provide the following GFR categories:Stage GFR(ml/min/1.73 m2) TermsG1 >=90 Normal or highG2 60-89 Mildly decreased*G3a 45-59 Mildly to moderately [id number] 30-44 Moderately to severely decreasedG4 15-29 Severely [...] LFT3, PHOS3, DDI2, BMP3M, ICA, MG3, HEMDF ####[address] [place], [place] GFR/1.73 sq M.predicted among blacks MDRD (S/P/Bld) [Vol rate/Area] mL/min/{1.73_m2} Normal >60 [facility] Comment on above: Performed By: #### F ERR3, CRP2, LDH3, LFT3, PHOS3, DDI2, BMP3M, ICA, MG3, HEMDF ####[address] [place], [place] Potassium [Moles/Vol] 4.6 mmol/L Normal 3.5-5.1 [facility] Comment on above: Performed By: #### F ERR3, CRP2, LDH3, LFT3, PHOS3, DDI2, BMP3M, ICA, MG3, HEMDF ####[address] [place], [place] Sodium [Moles/Vol] 148 mmol/L High 135-145 [facility] Comment on above: Performed By: #### F ERR3, CRP2, LDH3, LFT3, PHOS3, DDI2, BMP3M, ICA, MG3, HEMDF ####[address] [place], [place] Chloride [Moles/Vol] 110 mmol/L High 98-107 [facility] Comment on above: Performed By: #### F ERR3, CRP2, LDH3, LFT3, PHOS3, DDI2, BMP3M, ICA, MG3, HEMDF ####[address] [place] [address] C-Reactive Proteinon 021 CRP [Mass/Vol] 6.8 mg/L High 0.0-6.0 [facility] Comment on above: Result Comment: . Performed By: #### F ERR3, CRP2, LDH3, LFT3, PHOS3, DDI2, BMP3M, ICA, MG3, HEMDF ####[address] [place], [place] CR Chest Portableon 06-14-20 21 CR Chest Portable Normal [facility] CULT./ST. RESPIRATORYon 05-30 CULT./ST. RESPIRATORY CULT./ST. RESPIRAT ORY --> Status: F Moderate normal respiratory pretty. Normal [facility] Comment on above: Performed By: #### C S/RE, S/GRM ####[address] [place], [place] Calcium,Ionizedon 06-14-2021 Ionized Ca,Measured 4.60 mg/dL Normal 4.30-5.20 [facility] Comment on above: Performed By: #### F ERR3, CRP2, LDH3, LFT3, PHOS3, DDI2, BMP3M, ICA, MG3, HEMDF ####[address] [place], [place] pH, Ionized Calcium 7.48 High 7.31-7.46 [facility] Comment on above: Performed By: #### F ERR3, CRP2, LDH3, LFT3, PHOS3, DDI2, BMP3M, ICA, MG3, HEMDF ####[address] [place], [place] D-Dimer, Innovanceon 021 D-Dimer, [employer] 17.18 mg/L High <0.19-0.50 [facility] Comment on above: Result Comment: Inno [place] D-Dimer values of <0.50 mg/L FEU can be used incombination with a pre-test probability model (e.g. Well's)to exclude pulmonary embolism (PE) disease, as well as jodi in the diagnosis of deep vein thrombosis (DVT). Performed By: #### F ERR3, CRP2, LDH3, LFT3, PHOS3, DDI2, BMP3M, ICA, MG3, HEMDF ####[facility] [employer] [id number] [place] [address] Ferritinon 06-14-2021 Ferritin [Mass/Vol] 46 ng/mL Normal 8-252 [facility] Comment on above: Performed By: #### F ERR3, CRP2, LDH3, LFT3, PHOS3, DDI2, BMP3M, ICA, MG3, HEMDF ####[facility] [employer] [id number] [place] [address] Glucose,Bedsideon 06-14-2021 Glucose [Mass/Vol] 209 mg/dL High 70-100 [facility] Comment on above: Result Comment: Test performed by glucose meter. Results may be 10%-15% lowerthan serum/plasma values. (CLIA ID [id number]) Performed By: #### B GLU ####[facility] [employer] [id number] [facility] [address] Glucose [Mass/Vol] 186 mg/dL High 70-100 [facility] Comment on above: Result Comment: Test performed by glucose meter. Results may be 10%-15% lowerthan serum/plasma values. (CLIA ID [id number]) Performed By: #### B GLU ####[facility] [employer] [id number] [address] Glucose [Mass/Vol] 138 mg/dL High 70-100 [facility] Comment on above: Result Comment: Test performed by glucose meter. Results may be 10%-15% lowerthan serum/plasma values. (CLIA ID [id number]) Performed By: #### B GLU ####[facility] [employer] [id number] [address] Glucose [Mass/Vol] 122 mg/dL High 70-100 [facility] Comment on above: Result Comment: Test performed by glucose meter. Results may be 10%-15% lowerthan serum/plasma values. (CLIA ID [id number]) Performed By: #### B GLU ####[address] Hemogram w/ Autodiffon 06-14 Abs Baso Cnt 0.0 10*3/uL Normal 0.0-0.2 [facility] Comment on above: Performed By: #### F ERR3, CRP2, LDH3, LFT3, PHOS3, DDI2, BMP3M, ICA, MG3, HEMDF ####[address] Abs Neutrophile Cnt 10.1 10*3/uL High 1.8-7.0 [facility] Comment on above: Performed By: #### F ERR3, CRP2, LDH3, LFT3, PHOS3, DDI2, BMP3M, ICA, MG3, HEMDF ####[address] Basophils/100 WBC (Bld) 0.2 % Normal 0.0-2.0 [facility] Comment on above: Performed By: #### F ERR3, CRP2, LDH3, LFT3, PHOS3, DDI2, BMP3M, ICA, MG3, HEMDF ####[address] Eosinophils (Bld) [#/Vol] 0.0 10*3/uL Normal 0.0-0.5 [facility] Comment on above: Performed By: #### F ERR3, CRP2, LDH3, LFT3, PHOS3, DDI2, BMP3M, ICA, MG3, HEMDF ####[address] Eosinophils/100 WBC (Bld) 0.1 % Low 1.0-6.0 [facility] Comment on above: Performed By: #### F ERR3, CRP2, LDH3, LFT3, PHOS3, DDI2, BMP3M, ICA, MG3, HEMDF ####[address], [place] Erythrocyte distribution width (RBC) [Ratio] 21.4 % High 11.5-14.5 [facility] Comment on above: Performed By: #### F ERR3, CRP2, LDH3, LFT3, PHOS3, DDI2, BMP3M, ICA, MG3, HEMDF ####[address] Granulocytes/100 WBC (Bld) 82.3 % High 40.0-80.0 [facility] Comment on above: Performed By: #### F ERR3, CRP2, LDH3, LFT3, PHOS3, DDI2, BMP3M, ICA, MG3, HEMDF ####[address] Hematocrit (Bld) [Volume fraction] 38.3 % Normal 35.0-47.0 [facility] Comment on above: Performed By: #### F ERR3, CRP2, LDH3, LFT3, PHOS3, DDI2, BMP3M, ICA, MG3, HEMDF ####[address] Hemoglobin (Bld) [Mass/Vol] 12.0 g/dL Normal 11.7-16.0 [facility] Comment on above: Performed By: #### F ERR3, CRP2, LDH3, LFT3, PHOS3, DDI2, BMP3M, ICA, MG3, HEMDF ####[address] Lymphocytes (Bld) [#/Vol] 1.2 10*3/uL Normal 1.0-4.3 [facility] Comment on above: Performed By: #### F ERR3, CRP2, LDH3, LFT3, PHOS3, DDI2, BMP3M, ICA, MG3, HEMDF ####[address] Lymphocytes/100 WBC (Bld) 9.5 % Low 20.0-40.0 [facility] Comment on above: Performed By: #### F ERR3, CRP2, LDH3, LFT3, PHOS3, DDI2, BMP3M, ICA, MG3, HEMDF ####[address] MCH (RBC) [Entitic mass] 22.4 pg Low 26.0-34.0 [facility] Comment on above: Performed By: #### F ERR3, CRP2, LDH3, LFT3, PHOS3, DDI2, BMP3M, ICA, MG3, HEMDF ####[id number] [place], [place] MCHC 31.3 % Low 32.0-36.0 [facility] Comment on above: Performed By: #### F ERR3, CRP2, LDH3, LFT3, PHOS3, DDI2, BMP3M, ICA, MG3, HEMDF ####[id number] [place], [place] MCV (RBC) [Entitic vol] 71.7 fL Low 79.0-98.0 [facility] Comment on above: Performed By: #### F ERR3, CRP2, LDH3, LFT3, PHOS3, DDI2, BMP3M, ICA, MG3, HEMDF ####[facility] [place], [place] Monocytes (Bld) [#/Vol] 1.0 10*3/uL High 0.0-0.8 [facility] Comment on above: Performed By: #### F ERR3, CRP2, LDH3, LFT3, PHOS3, DDI2, BMP3M, ICA, MG3, HEMDF ####[id number] [place], [place] Monocytes/100 WBC (Bld) 7.9 % Normal 2.0-10.0 [facility] Comment on above: Performed By: #### F ERR3, CRP2, LDH3, LFT3, PHOS3, DDI2, BMP3M, ICA, MG3, HEMDF ####[id number] [place], [place] Platelet mean volume (Bld) [Entitic vol] 8.4 fL Normal 7.4-10.4 [facility] Comment on above: Performed By: #### F ERR3, CRP2, LDH3, LFT3, PHOS3, DDI2, BMP3M, ICA, MG3, HEMDF ####[facility] [place], [place] Platelets (Bld) [#/Vol] 229 10*3/uL Normal 140-440 [facility] Comment on above: Performed By: #### F ERR3, CRP2, LDH3, LFT3, PHOS3, DDI2, BMP3M, ICA, MG3, HEMDF ####[id number] [place], [place] RBC (Bld) [#/Vol] 5.33 10*6/uL High 3.80-5.20 [facility] Comment on above: Performed By: #### F ERR3, CRP2, LDH3, LFT3, PHOS3, DDI2, BMP3M, ICA, MG3, HEMDF ####[id number] [place], [place] WBC (Bld) [#/Vol] 12.3 10*3/uL High 3.6-10.7 [facility] Comment on above: Performed By: #### F ERR3, CRP2, LDH3, LFT3, PHOS3, DDI2, BMP3M, ICA, MG3, HEMDF ####[address] [place], [place] Hepatic Functionon 1 ALT [Catalytic activity/Vol] 61 U/L High 0-34 [facility] Comment on above: Result Comment: The ALT test is performed by an updated assay method.Please note that the reference intervals have beenchanged and are now sex specific. Performed By: #### F ERR3, CRP2, LDH3, LFT3, PHOS3, DDI2, BMP3M, ICA, MG3, HEMDF ####[address] [place], [place] ALP [Catalytic activity/Vol] 89 U/L Normal 38-126 [facility] Comment on above: Performed By: #### F ERR3, CRP2, LDH3, LFT3, PHOS3, DDI2, BMP3M, ICA, MG3, HEMDF ####[address] [place], [place] AST [Catalytic activity/Vol] 44 U/L Normal 15-46 [facility] Comment on above: Performed By: #### F ERR3, CRP2, LDH3, LFT3, PHOS3, DDI2, BMP3M, ICA, MG3, HEMDF ####[address] [place], [place] Bilirubin [Mass/Vol] 0.6 mg/dL Normal 0.2-1.3 [facility] Comment on above: Performed By: #### F ERR3, CRP2, LDH3, LFT3, PHOS3, DDI2, BMP3M, ICA, MG3, HEMDF ####[address] [place], [place] Bilirubin.indirect [Mass/Vol] 0.0 mg/dL Normal 0.0-0.3 [facility] Comment on above: Performed By: #### F ERR3, CRP2, LDH3, LFT3, PHOS3, DDI2, BMP3M, ICA, MG3, HEMDF ####[address] [place], [place] Protein [Mass/Vol] 6.7 g/dL Normal 6.3-8.2 [facility] Comment on above: Performed By: #### F ERR3, CRP2, LDH3, LFT3, PHOS3, DDI2, BMP3M, ICA, MG3, HEMDF ####[address] [place], [place] Albumin [Mass/Vol] 3.5 g/dL Normal 3.5-5.0 [facility] Comment on above: Performed By: #### F ERR3, CRP2, LDH3, LFT3, PHOS3, DDI2, BMP3M, ICA, MG3, HEMDF ####[address] [place], [place] LDHon 06-14-2021 LDH 303 U/L High 120-246 [facility] Comment on above: Performed By: #### F ERR3, CRP2, LDH3, LFT3, PHOS3, DDI2, BMP3M, ICA, MG3, HEMDF ####[address] [place] [address] Magnesiumon 06-14-2021 Magnesium [Mass/Vol] 2.4 mg/dL High 1.6-2.3 [facility] Comment on above: Performed By: #### F ERR3, CRP2, LDH3, LFT3, PHOS3, DDI2, BMP3M, ICA, MG3, HEMDF ####[address] [place] [address] Phosphoruson 06-14-2021 Phosphate [Mass/Vol] 4.3 mg/dL Normal 2.5-4.5 [facility] Comment on above: Performed By: #### F ERR3, CRP2, LDH3, LFT3, PHOS3, DDI2, BMP3M, ICA, MG3, HEMDF ####[address] [place] [address] Sodiumon 06-14-2021 Sodium [Moles/Vol] 148 mmol/L High 135-145 [facility] Comment on above: Performed By: #### N A3 ####[address] [place] [address] Arterial Blood Gaseson 06-13 CO2 [Moles/Vol] 32.9 mmol/L High 23.0-27.0 [facility] Comment on above: Performed By: #### A BG ####[address] [place] [address] HCO3 (Bld) [Moles/Vol] 31.6 mmol/L High 21.0-25.0 [facility] Comment on above: Performed By: #### A BG ####[address] [place] [address] Hemoglobin (Bld) [Mass/Vol] 12.0 g/dL Normal ScreenOnly [facility] Comment on above: Performed By: #### A BG ####[address] [place], [place] Oxygen (Bld) [Partial pressure] 63.5 mm[Hg] Low 80.0-100.0 [facility] Comment on above: Performed By: #### A BG ####[address] [place], [place] Oxygen saturation in Blood 92.1 % Low 95.0-100.0 [facility] Comment on above: Performed By: #### A BG ####[address] [place], [place] pCO2 43.4 mm[Hg] Normal 35.0-45.0 [facility] Comment on above: Performed By: #### A BG ####[address] pH 7.480 High 7.350-7.450 [facility] Comment on above: Performed By: #### A BG ####[address] [place], [place] Std Base Excess 7.3 mmol/L High -3.0-3.0 [facility] Comment on above: Performed By: #### A BG ####[address] FIO2 No data Normal [facility] Comment on above: Performed By: #### A BG ####[address] [place], [place] CO2 [Moles/Vol] 36.5 mmol/L High 23.0-27.0 [facility] Comment on above: Performed By: #### A BG ####[address] [place], [place] HCO3 (Bld) [Moles/Vol] 35.1 mmol/L High 21.0-25.0 [facility] Comment on above: Performed By: #### A BG ####[address] Hemoglobin (Bld) [Mass/Vol] 12.5 g/dL Normal ScreenOnly [facility] Comment on above: Performed By: #### A BG ####[address] [place], [place] Oxygen (Bld) [Partial pressure] 73.9 mm[Hg] Low 80.0-100.0 [facility] Comment on above: Performed By: #### A BG ####[address] [place], [place] Oxygen saturation in Blood 93.9 % Low 95.0-100.0 [facility] Comment on above: Performed By: #### A BG ####[address] [place], [place] pCO2 46.9 mm[Hg] High 35.0-45.0 [facility] Comment on above: Performed By: #### A BG ####[address] [place], [place] pH 7.492 High 7.350-7.450 [facility] Comment on above: Performed By: #### A BG ####[address] Std Base Excess 10.4 mmol/L High -3.0-3.0 [facility] Comment on above: Performed By: #### A BG ####[address] FIO2 No data Normal [facility] Comment on above: Performed By: #### A BG ####[address] Basic Metabolic Panelon 07- Anion gap [Moles/Vol] 6 mmol/L Normal 3-13 [facility] Comment on above: Performed By: #### L FT3, MG3, FERR3, LDH3, PHOS3, HEMDF, BMP3M, ICA, CRP2, DDI2 ####[address] [place], [place] Calcium [Mass/Vol] 8.9 mg/dL Normal 8.4-10.4 [facility] Comment on above: Performed By: #### L FT3, MG3, FERR3, LDH3, PHOS3, HEMDF, BMP3M, ICA, CRP2, DDI2 ####[address] [place], [place] CO2 [Moles/Vol] 32 mmol/L High 22-30 [facility] Comment on above: Performed By: #### L FT3, MG3, FERR3, LDH3, PHOS3, HEMDF, BMP3M, ICA, CRP2, DDI2 ####[address] [place], [place] Glucose [Mass/Vol] 131 mg/dL High 70-100 [facility] Comment on above: Performed By: #### L FT3, MG3, FERR3, LDH3, PHOS3, HEMDF, BMP3M, ICA, CRP2, DDI2 ####[address] [place], [place] Urea nitrogen [Mass/Vol] 56 mg/dL High 7-20 [facility] Comment on above: Performed By: #### L FT3, MG3, FERR3, LDH3, PHOS3, HEMDF, BMP3M, ICA, CRP2, DDI2 ####[address] [place], [place] Creatinine [Mass/Vol] 0.72 mg/dL Normal 0.52-1.25 [facility] Comment on above: Performed By: #### L FT3, MG3, FERR3, LDH3, PHOS3, HEMDF, BMP3M, ICA, CRP2, DDI2 ####[address] [place], [place] eGFR OTHER > 90.0 Normal >60 [facility] Comment on above: Result Comment: KDIG O guidelines provide the following GFR categories:Stage GFR(ml/min/1.73 m2) TermsG1 >=90 Normal or highG2 60-89 Mildly decreased*G3a 45-59 Mildly to moderately ucubuezofP2p 30-44 Moderately to severely decreasedG4 15-29 Severely [...] LDH3, PHOS3, HEMDF, BMP3M, ICA, CRP2, DDI2 ####[address] GFR/1.73 sq M.predicted among blacks MDRD (S/P/Bld) [Vol rate/Area] mL/min/{1.73_m2} Normal >60 [facility] Comment on above: Performed By: #### L FT3, MG3, FERR3, LDH3, PHOS3, HEMDF, BMP3M, ICA, CRP2, DDI2 ####[address] [place], [place] Potassium [Moles/Vol] 4.5 mmol/L Normal 3.5-5.1 [facility] Comment on above: Performed By: #### L FT3, MG3, FERR3, LDH3, PHOS3, HEMDF, BMP3M, ICA, CRP2, DDI2 ####[address] Sodium [Moles/Vol] 149 mmol/L High 135-145 [facility] Comment on above: Performed By: #### L FT3, MG3, FERR3, LDH3, PHOS3, HEMDF, BMP3M, ICA, CRP2, DDI2 ####[address] Chloride [Moles/Vol] 111 mmol/L High 98-107 [facility] Comment on above: Performed By: #### L FT3, MG3, FERR3, LDH3, PHOS3, HEMDF, BMP3M, ICA, CRP2, DDI2 ####[address] [place] [address] C-Reactive Proteinon 021 CRP [Mass/Vol] 5.9 mg/L Normal 0.0-6.0 [facility] Comment on above: Result Comment: . Performed By: #### L FT3, MG3, FERR3, LDH3, PHOS3, HEMDF, BMP3M, ICA, CRP2, DDI2 ####[address] [place] [address] CR Chest Portableon 06-13-20 CR Chest Portable Normal [facility] Calcium,Ionizedon 06-13-2021 Ionized Ca,Measured 4.10 mg/dL Low 4.30-5.20 [facility] Comment on above: Performed By: #### L FT3, MG3, FERR3, LDH3, PHOS3, HEMDF, BMP3M, ICA, CRP2, DDI2 ####[address] [address] pH, Ionized Calcium 7.52 High 7.31-7.46 [facility] Comment on above: Performed By: #### L FT3, MG3, FERR3, LDH3, PHOS3, HEMDF, BMP3M, ICA, CRP2, DDI2 ####[address] [address] D-Dimer, Innovanceon 021 D-Dimer, Innovance 18.71 mg/L High <0.19-0.50 [facility] Comment on above: Result Comment: Inno carrington D-Dimer values of <0.50 mg/L FEU can be used incombination with a pre-test probability model (e.g. Well's)to exclude pulmonary embolism (PE) disease, as well as jodi in the diagnosis of deep vein thrombosis (DVT). Performed By: #### L FT3, MG3, FERR3, LDH3, PHOS3, HEMDF, BMP3M, ICA, CRP2, DDI2 ####[address] [place] Ferritinon 06-13-2021 Ferritin [Mass/Vol] 42 ng/mL Normal 8-252 [facility] Comment on above: Performed By: #### L FT3, MG3, FERR3, LDH3, PHOS3, HEMDF, BMP3M, ICA, CRP2, DDI2 ####[address] [place], [place] Glucose,Bedsideon 06-13-2021 Glucose [Mass/Vol] 174 mg/dL High 70-100 [facility] Comment on above: Result Comment: Test performed by glucose meter. Results may be 10%-15% lowerthan serum/plasma values. (CLIA ID [id number]) Performed By: #### B GLU ####[address] Glucose [Mass/Vol] 159 mg/dL High 70-100 [facility] Comment on above: Result Comment: Test performed by glucose meter. Results may be 10%-15% lowerthan serum/plasma values. (CLIA ID [id number]) Performed By: #### B GLU ####[address] [place], [place] Glucose [Mass/Vol] 129 mg/dL High 70-100 [facility] Comment on above: Result Comment: Test performed by glucose meter. Results may be 10%-15% lowerthan serum/plasma values. (CLIA ID [id number]) Performed By: #### B GLU ####[address] [place], [place] Hemogram w/ Autodiffon 06-13 Abs Baso Cnt 0.1 10*3/uL Normal 0.0-0.2 [facility] Comment on above: Performed By: #### L FT3, MG3, FERR3, LDH3, PHOS3, HEMDF, BMP3M, ICA, CRP2, DDI2 ####[address] [place], [place] Abs Neutrophile Cnt 9.9 10*3/uL High 1.8-7.0 [facility] Comment on above: Performed By: #### L FT3, MG3, FERR3, LDH3, PHOS3, HEMDF, BMP3M, ICA, CRP2, DDI2 ####[address] [address] Basophils/100 WBC (Bld) 1.2 % Normal 0.0-2.0 [facility] Comment on above: Performed By: #### L FT3, MG3, FERR3, LDH3, PHOS3, HEMDF, BMP3M, ICA, CRP2, DDI2 ####[address] [address] Eosinophils (Bld) [#/Vol] 0.0 10*3/uL Normal 0.0-0.5 [facility] Comment on above: Performed By: #### L FT3, MG3, FERR3, LDH3, PHOS3, HEMDF, BMP3M, ICA, CRP2, DDI2 ####[address] Eosinophils/100 WBC (Bld) 0.1 % Low 1.0-6.0 [facility] Comment on above: Performed By: #### L FT3, MG3, FERR3, LDH3, PHOS3, HEMDF, BMP3M, ICA, CRP2, DDI2 ####[address] Erythrocyte distribution width (RBC) [Ratio] 21.1 % High 11.5-14.5 [facility] Comment on above: Performed By: #### L FT3, MG3, FERR3, LDH3, PHOS3, HEMDF, BMP3M, ICA, CRP2, DDI2 ####[address] [address] Granulocytes/100 WBC (Bld) 80.6 % High 40.0-80.0 [facility] Comment on above: Performed By: #### L FT3, MG3, FERR3, LDH3, PHOS3, HEMDF, BMP3M, ICA, CRP2, DDI2 ####[address] Hematocrit (Bld) [Volume fraction] 36.4 % Normal 35.0-47.0 [facility] Comment on above: Performed By: #### L FT3, MG3, FERR3, LDH3, PHOS3, HEMDF, BMP3M, ICA, CRP2, DDI2 ####[address] Hemoglobin (Bld) [Mass/Vol] 11.4 g/dL Low 11.7-16.0 [facility] Comment on above: Performed By: #### L FT3, MG3, FERR3, LDH3, PHOS3, HEMDF, BMP3M, ICA, CRP2, DDI2 ####[address] Lymphocytes (Bld) [#/Vol] 1.0 10*3/uL Normal 1.0-4.3 [facility] Comment on above: Performed By: #### L FT3, MG3, FERR3, LDH3, PHOS3, HEMDF, BMP3M, ICA, CRP2, DDI2 ####[address] Lymphocytes/100 WBC (Bld) 8.4 % Low 20.0-40.0 [facility] Comment on above: Performed By: #### L FT3, MG3, FERR3, LDH3, PHOS3, HEMDF, BMP3M, ICA, CRP2, DDI2 ####[address] MCH (RBC) [Entitic mass] 22.4 pg Low 26.0-34.0 [facility] Comment on above: Performed By: #### L FT3, MG3, FERR3, LDH3, PHOS3, HEMDF, BMP3M, ICA, CRP2, DDI2 ####[address] MCHC 31.4 % Low 32.0-36.0 [facility] Comment on above: Performed By: #### L FT3, MG3, FERR3, LDH3, PHOS3, HEMDF, BMP3M, ICA, CRP2, DDI2 ####[address] [place], [place] MCV (RBC) [Entitic vol] 71.4 fL Low 79.0-98.0 [facility] Comment on above: Performed By: #### L FT3, MG3, FERR3, LDH3, PHOS3, HEMDF, BMP3M, ICA, CRP2, DDI2 ####[address] Monocytes (Bld) [#/Vol] 1.2 10*3/uL High 0.0-0.8 [facility] Comment on above: Performed By: #### L FT3, MG3, FERR3, LDH3, PHOS3, HEMDF, BMP3M, ICA, CRP2, DDI2 ####[address] Monocytes/100 WBC (Bld) 9.7 % Normal 2.0-10.0 [facility] Comment on above: Performed By: #### L FT3, MG3, FERR3, LDH3, PHOS3, HEMDF, BMP3M, ICA, CRP2, DDI2 ####[address] Platelet mean volume (Bld) [Entitic vol] 8.3 fL Normal 7.4-10.4 [facility] Comment on above: Performed By: #### L FT3, MG3, FERR3, LDH3, PHOS3, HEMDF, BMP3M, ICA, CRP2, DDI2 ####[address] Platelets (Bld) [#/Vol] 243 10*3/uL Normal 140-440 [facility] Comment on above: Performed By: #### L FT3, MG3, FERR3, LDH3, PHOS3, HEMDF, BMP3M, ICA, CRP2, DDI2 ####[address] RBC (Bld) [#/Vol] 5.10 10*6/uL Normal 3.80-5.20 [facility] Comment on above: Performed By: #### L FT3, MG3, FERR3, LDH3, PHOS3, HEMDF, BMP3M, ICA, CRP2, DDI2 ####[address] [place], [place] WBC (Bld) [#/Vol] 12.2 10*3/uL High 3.6-10.7 [facility] Comment on above: Performed By: #### L FT3, MG3, FERR3, LDH3, PHOS3, HEMDF, BMP3M, ICA, CRP2, DDI2 ####[address] [place], [place] Hepatic Functionon 1 ALP [Catalytic activity/Vol] 82 U/L Normal 38-126 [facility] Comment on above: Performed By: #### L FT3, MG3, FERR3, LDH3, PHOS3, HEMDF, BMP3M, ICA, CRP2, DDI2 ####[address] [place], [place] ALT [Catalytic activity/Vol] 62 U/L High 0-34 [facility] Comment on above: Result Comment: The ALT test is performed by an updated assay method.Please note that the reference intervals have beenchanged and are now sex specific. Performed By: #### L FT3, MG3, FERR3, LDH3, PHOS3, HEMDF, BMP3M, ICA, CRP2, DDI2 ####[address] [place], [place] AST [Catalytic activity/Vol] 36 U/L Normal 15-46 [facility] Comment on above: Performed By: #### L FT3, MG3, FERR3, LDH3, PHOS3, HEMDF, BMP3M, ICA, CRP2, DDI2 ####[address] [place], [place] Bilirubin [Mass/Vol] 0.5 mg/dL Normal 0.2-1.3 [facility] Comment on above: Performed By: #### L FT3, MG3, FERR3, LDH3, PHOS3, HEMDF, BMP3M, ICA, CRP2, DDI2 ####[address] Protein [Mass/Vol] 6.5 g/dL Normal 6.3-8.2 [facility] Comment on above: Performed By: #### L FT3, MG3, FERR3, LDH3, PHOS3, HEMDF, BMP3M, ICA, CRP2, DDI2 ####[address] Bilirubin.indirect [Mass/Vol] 0.0 mg/dL Normal 0.0-0.3 [facility] Comment on above: Performed By: #### L FT3, MG3, FERR3, LDH3, PHOS3, HEMDF, BMP3M, ICA, CRP2, DDI2 ####[address] Albumin [Mass/Vol] 3.3 g/dL Low 3.5-5.0 [facility] Comment on above: Performed By: #### L FT3, MG3, FERR3, LDH3, PHOS3, HEMDF, BMP3M, ICA, CRP2, DDI2 ####[address] LDHon 06-13-2021 LDH 272 U/L High 120-246 [facility] Comment on above: Performed By: #### L FT3, MG3, FERR3, LDH3, PHOS3, HEMDF, BMP3M, ICA, CRP2, DDI2 ####[address] Magnesiumon 06-13-2021 Magnesium [Mass/Vol] 2.5 mg/dL High 1.6-2.3 [facility] Comment on above: Performed By: #### L FT3, MG3, FERR3, LDH3, PHOS3, HEMDF, BMP3M, ICA, CRP2, DDI2 ####[address] [place] [address] PNEUMONIA PCR PANELon 2020 PNEUMONIA PCR PANEL Normal [facility] Comment on above: Performed By: #### B FPNE ####[address] [place] [address] Phosphoruson 06-13-2021 Phosphate [Mass/Vol] 4.4 mg/dL Normal 2.5-4.5 [facility] Comment on above: Performed By: #### L FT3, MG3, FERR3, LDH3, PHOS3, HEMDF, BMP3M, ICA, CRP2, DDI2 ####[address] [place], [place] Sodiumon 06-13-2021 Sodium [Moles/Vol] 148 mmol/L High 135-145 [facility] Comment on above: Performed By: #### N A3 ####[address] [place], [place] Sodium [Moles/Vol] 148 mmol/L High 135-145 [facility] Comment on above: Performed By: #### N A3 ####[address] [place] Sodium [Moles/Vol] 150 mmol/L High 135-145 [facility] Comment on above: Performed By: #### N A3 ####[address] [place] [address] Arterial Blood Gaseson 06-12 CO2 [Moles/Vol] 34.1 mmol/L High 23.0-27.0 [facility] Comment on above: Performed By: #### A BG ####[address] [place], [place] HCO3 (Bld) [Moles/Vol] 32.6 mmol/L High 21.0-25.0 [facility] Comment on above: Performed By: #### A BG ####[address] Hemoglobin (Bld) [Mass/Vol] 12.3 g/dL Normal ScreenOnly [facility] Comment on above: Performed By: #### A BG ####[address] [place], [place] Oxygen (Bld) [Partial pressure] 60.5 mm[Hg] Low 80.0-100.0 [facility] Comment on above: Performed By: #### A BG ####[address] [place], [place] Oxygen saturation in Blood 90.5 % Low 95.0-100.0 [facility] Comment on above: Performed By: #### A BG ####[address] [place], [place] pCO2 46.2 mm[Hg] High 35.0-45.0 [facility] Comment on above: Performed By: #### A BG ####[address] pH 7.467 High 7.350-7.450 [facility] Comment on above: Performed By: #### A BG ####[address] Std Base Excess 7.9 mmol/L High -3.0-3.0 [facility] Comment on above: Performed By: #### A BG ####[address] FIO2 No data Normal [facility] Comment on above: Performed By: #### A BG ####[address] [place], [place] CO2 [Moles/Vol] 36.1 mmol/L High 23.0-27.0 [facility] Comment on above: Performed By: #### A BG ####[address] HCO3 (Bld) [Moles/Vol] 34.6 mmol/L High 21.0-25.0 [facility] Comment on above: Performed By: #### A BG ####[address] Hemoglobin (Bld) [Mass/Vol] 12.2 g/dL Normal ScreenOnly [facility] Comment on above: Performed By: #### A BG ####[address] [place], [place] Oxygen (Bld) [Partial pressure] 82.8 mm[Hg] Normal 80.0-100.0 [facility] Comment on above: Performed By: #### A BG ####[address] Oxygen saturation in Blood 95.3 % Normal 95.0-100.0 [facility] Comment on above: Performed By: #### A BG ####[address] [place], [place] pCO2 48.7 mm[Hg] High 35.0-45.0 [facility] Comment on above: Performed By: #### A BG ####[address] [place], [place] pH 7.469 High 7.350-7.450 [facility] Comment on above: Performed By: #### A BG ####[address] Std Base Excess 9.5 mmol/L High -3.0-3.0 [facility] Comment on above: Performed By: #### A BG ####[address] [place], [place] FIO2 40% Normal [facility] Comment on above: Performed By: #### A BG ####[address] Basic Metabolic Panelon 05-30 Calcium [Mass/Vol] 9.0 mg/dL Normal 8.4-10.4 [facility] Comment on above: Performed By: #### B MP3M, MG3, LFT3, HEMDF, PHOS3, DDI2, ICA, MDIFF, CRP2, FERR3, LDH3 ####[address] [place], [place] Glucose [Mass/Vol] 139 mg/dL High 70-100 [facility] Comment on above: Performed By: #### B MP3M, MG3, LFT3, HEMDF, PHOS3, DDI2, ICA, MDIFF, CRP2, FERR3, LDH3 ####[address] [place], [place] Urea nitrogen [Mass/Vol] 59 mg/dL High 7-20 [facility] Comment on above: Performed By: #### B MP3M, MG3, LFT3, HEMDF, PHOS3, DDI2, ICA, MDIFF, CRP2, FERR3, LDH3 ####[address] [place], [place] Anion gap [Moles/Vol] 4 mmol/L Normal 3-13 [facility] Comment on above: Performed By: #### B MP3M, MG3, LFT3, HEMDF, PHOS3, DDI2, ICA, MDIFF, CRP2, FERR3, LDH3 ####[address] CO2 [Moles/Vol] 34 mmol/L High 22-30 [facility] Comment on above: Performed By: #### B MP3M, MG3, LFT3, HEMDF, PHOS3, DDI2, ICA, MDIFF, CRP2, FERR3, LDH3 ####[address] Creatinine [Mass/Vol] 0.82 mg/dL Normal 0.52-1.25 [facility] Comment on above: Performed By: #### B MP3M, MG3, LFT3, HEMDF, PHOS3, DDI2, ICA, MDIFF, CRP2, FERR3, LDH3 ####[address] GFR/1.73 sq M.predicted among blacks MDRD (S/P/Bld) [Vol rate/Area] mL/min/{1.73_m2} Normal >60 [facility] Comment on above: Performed By: #### B MP3M, MG3, LFT3, HEMDF, PHOS3, DDI2, ICA, MDIFF, CRP2, FERR3, LDH3 ####[address] [place], [place] GFR/1.73 sq M.predicted among non-blacks MDRD (S/P/Bld) [Vol rate/Area] 81.5 mL/min/{1.73_m2} Normal >60 [facility] Comment on above: Result Comment: KDIG O guidelines provide the following GFR categories:Stage GFR(ml/min/1.73 m2) TermsG1 >=90 Normal or highG2 60-89 Mildly decreased*G3a 45-59 Mildly to moderately neovmrmsqP2t 30-44 Moderately to severely decreasedG4 15-29 Severely [...] PHOS3, DDI2, ICA, MDIFF, CRP2, FERR3, LDH3 ####[address] [place], [place] Potassium [Moles/Vol] 4.4 mmol/L Normal 3.5-5.1 [facility] Comment on above: Performed By: #### B MP3M, MG3, LFT3, HEMDF, PHOS3, DDI2, ICA, MDIFF, CRP2, FERR3, LDH3 ####[address] [place], [place] Chloride [Moles/Vol] 111 mmol/L High 98-107 [facility] Comment on above: Performed By: #### B MP3M, MG3, LFT3, HEMDF, PHOS3, DDI2, ICA, MDIFF, CRP2, FERR3, LDH3 ####[id number] [place], [place] Sodium [Moles/Vol] 149 mmol/L High 135-145 [facility] Comment on above: Performed By: #### B MP3M, MG3, LFT3, HEMDF, PHOS3, DDI2, ICA, MDIFF, CRP2, FERR3, LDH3 ####[id number] [place], [place] C-Reactive Proteinon 021 CRP [Mass/Vol] 6.1 mg/L High 0.0-6.0 [facility] Comment on above: Result Comment: . Performed By: #### B MP3M, MG3, LFT3, HEMDF, PHOS3, DDI2, ICA, MDIFF, CRP2, FERR3, LDH3 ####[address] CR Chest Portableon 06-12-20 21 CR Chest Portable Normal [facility] Calcium,Ionizedon 06-12-2021 Ionized Ca,Measured 4.70 mg/dL Normal 4.30-5.20 [facility] Comment on above: Performed By: #### B MP3M, MG3, LFT3, HEMDF, PHOS3, DDI2, ICA, MDIFF, CRP2, FERR3, LDH3 ####[address] pH, Ionized Calcium 7.46 Normal 7.31-7.46 [facility] Comment on above: Performed By: #### B MP3M, MG3, LFT3, HEMDF, PHOS3, DDI2, ICA, MDIFF, CRP2, FERR3, LDH3 ####[address] D-Dimer, Innovanceon 021 D-Dimer, [employer] 23.25 mg/L High <0.19-0.50 [facility] Comment on above: Result Comment: Inno [place] D-Dimer values of <0.50 mg/L FEU can be used incombination with a pre-test probability model (e.g. Well's)to exclude pulmonary embolism (PE) disease, as well as jodi in the diagnosis of deep vein thrombosis (DVT). Performed By: #### B MP3M, MG3, LFT3, HEMDF, PHOS3, DDI2, ICA, MDIFF, CRP2, FERR3, LDH3 ####[facility] [employer] [id number] [place] [address] Ferritinon 06-12-2021 Ferritin [Mass/Vol] 42 ng/mL Normal 8-252 [facility] Comment on above: Performed By: #### B MP3M, MG3, LFT3, HEMDF, PHOS3, DDI2, ICA, MDIFF, CRP2, FERR3, LDH3 ####[facility] [employer] [id number] [place] [address] Glucose,Bedsideon 06-12-2021 Glucose [Mass/Vol] 172 mg/dL High 70-100 [facility] Comment on above: Result Comment: Test performed by glucose meter. Results may be 10%-15% lowerthan serum/plasma values. (CLIA ID [id number]) Performed By: #### B GLU ####[facility] [employer] [id number] [place] [address] Glucose [Mass/Vol] 169 mg/dL High 70-100 [facility] Comment on above: Result Comment: Test performed by glucose meter. Results may be 10%-15% lowerthan serum/plasma values. (CLIA ID [id number]) Performed By: #### B GLU ####[facility] [employer] [id number] [place] [address] Glucose [Mass/Vol] 178 mg/dL High 70-100 [facility] Comment on above: Result Comment: Test performed by glucose meter. Results may be 10%-15% lowerthan serum/plasma values. (CLIA ID [id number]) Performed By: #### B GLU ####[facility] [employer] [id number] [place] [address] Glucose [Mass/Vol] 121 mg/dL High 70-100 [facility] Comment on above: Result Comment: Test performed by glucose meter. Results may be 10%-15% lowerthan serum/plasma values. (CLIA ID [id number]) Performed By: #### B GLU ####[address] Glucose [Mass/Vol] 135 mg/dL High 70-100 [facility] Comment on above: Result Comment: Test performed by glucose meter. Results may be 10%-15% lowerthan serum/plasma values. (CLIA ID [id number]) Performed By: #### B GLU ####[address] Hemogram w/ Autodiffon 06-12 Erythrocyte distribution width (RBC) [Ratio] 20.8 % High 11.5-14.5 [facility] Comment on above: Performed By: #### B MP3M, MG3, LFT3, HEMDF, PHOS3, DDI2, ICA, MDIFF, CRP2, FERR3, LDH3 ####[address] Hematocrit (Bld) [Volume fraction] 35.9 % Normal 35.0-47.0 [facility] Comment on above: Performed By: #### B MP3M, MG3, LFT3, HEMDF, PHOS3, DDI2, ICA, MDIFF, CRP2, FERR3, LDH3 ####[address] [place], [place] Hemoglobin (Bld) [Mass/Vol] 11.3 g/dL Low 11.7-16.0 [facility] Comment on above: Performed By: #### B MP3M, MG3, LFT3, HEMDF, PHOS3, DDI2, ICA, MDIFF, CRP2, FERR3, LDH3 ####[address] [place], [place] MCH (RBC) [Entitic mass] 22.4 pg Low 26.0-34.0 [facility] Comment on above: Performed By: #### B MP3M, MG3, LFT3, HEMDF, PHOS3, DDI2, ICA, MDIFF, CRP2, FERR3, LDH3 ####[address] MCHC 31.3 % Low 32.0-36.0 [facility] Comment on above: Performed By: #### B MP3M, MG3, LFT3, HEMDF, PHOS3, DDI2, ICA, MDIFF, CRP2, FERR3, LDH3 ####[address] MCV (RBC) [Entitic vol] 71.5 fL Low 79.0-98.0 [facility] Comment on above: Performed By: #### B MP3M, MG3, LFT3, HEMDF, PHOS3, DDI2, ICA, MDIFF, CRP2, FERR3, LDH3 ####[address] Platelet mean volume (Bld) [Entitic vol] 8.6 fL Normal 7.4-10.4 [facility] Comment on above: Performed By: #### B MP3M, MG3, LFT3, HEMDF, PHOS3, DDI2, ICA, MDIFF, CRP2, FERR3, LDH3 ####[address] [place], [place] Platelets (Bld) [#/Vol] 266 10*3/uL Normal 140-440 [facility] Comment on above: Performed By: #### B MP3M, MG3, LFT3, HEMDF, PHOS3, DDI2, ICA, MDIFF, CRP2, FERR3, LDH3 ####[address] RBC (Bld) [#/Vol] 5.03 10*6/uL Normal 3.80-5.20 [facility] Comment on above: Performed By: #### B MP3M, MG3, LFT3, HEMDF, PHOS3, DDI2, ICA, MDIFF, CRP2, FERR3, LDH3 ####[address] WBC (Bld) [#/Vol] 11.1 10*3/uL High 3.6-10.7 [facility] Comment on above: Performed By: #### B MP3M, MG3, LFT3, HEMDF, PHOS3, DDI2, ICA, MDIFF, CRP2, FERR3, LDH3 ####[address] [place], [place] Hepatic Functionon 1 ALP [Catalytic activity/Vol] 82 U/L Normal 38-126 [facility] Comment on above: Performed By: #### B MP3M, MG3, LFT3, HEMDF, PHOS3, DDI2, ICA, MDIFF, CRP2, FERR3, LDH3 ####[address] [place], [place] ALT [Catalytic activity/Vol] 61 U/L High 0-34 [facility] Comment on above: Result Comment: The ALT test is performed by an updated assay method.Please note that the reference intervals have beenchanged and are now sex specific. Performed By: #### B MP3M, MG3, LFT3, HEMDF, PHOS3, DDI2, ICA, MDIFF, CRP2, FERR3, LDH3 ####[address] [place], [place] AST [Catalytic activity/Vol] 42 U/L Normal 15-46 [facility] Comment on above: Performed By: #### B MP3M, MG3, LFT3, HEMDF, PHOS3, DDI2, ICA, MDIFF, CRP2, FERR3, LDH3 ####[address] Protein [Mass/Vol] 6.6 g/dL Normal 6.3-8.2 [facility] Comment on above: Performed By: #### B MP3M, MG3, LFT3, HEMDF, PHOS3, DDI2, ICA, MDIFF, CRP2, FERR3, LDH3 ####[address] [place], [place] Bilirubin [Mass/Vol] 0.5 mg/dL Normal 0.2-1.3 [facility] Comment on above: Performed By: #### B MP3M, MG3, LFT3, HEMDF, PHOS3, DDI2, ICA, MDIFF, CRP2, FERR3, LDH3 ####[address] Bilirubin.indirect [Mass/Vol] 0.0 mg/dL Normal 0.0-0.3 [facility] Comment on above: Performed By: #### B MP3M, MG3, LFT3, HEMDF, PHOS3, DDI2, ICA, MDIFF, CRP2, FERR3, LDH3 ####[address] Albumin [Mass/Vol] 3.4 g/dL Low 3.5-5.0 [facility] Comment on above: Performed By: #### B MP3M, MG3, LFT3, HEMDF, PHOS3, DDI2, ICA, MDIFF, CRP2, FERR3, LDH3 ####[address] [address] LDHon 06-12-2021 LDH 269 U/L High 120-246 [facility] Comment on above: Performed By: #### B MP3M, MG3, LFT3, HEMDF, PHOS3, DDI2, ICA, MDIFF, CRP2, FERR3, LDH3 ####[address] Magnesiumon 06-12-2021 Magnesium [Mass/Vol] 2.4 mg/dL High 1.6-2.3 [facility] Comment on above: Performed By: #### B MP3M, MG3, LFT3, HEMDF, PHOS3, DDI2, ICA, MDIFF, CRP2, FERR3, LDH3 ####[address] Manual Diffon 06-12-2021 Abs Eosin Cnt 0.1 10*3/uL Normal 0.0-0.5 [facility] Comment on above: Performed By: #### B MP3M, MG3, LFT3, HEMDF, PHOS3, DDI2, ICA, MDIFF, CRP2, FERR3, LDH3 ####[address] Abs Lymph Cnt 0.8 10*3/uL Low 1.1-4.5 [facility] Comment on above: Performed By: #### B MP3M, MG3, LFT3, HEMDF, PHOS3, DDI2, ICA, MDIFF, CRP2, FERR3, LDH3 ####[address] Abs Monocyte Cnt 0.8 10*3/uL Normal 0.2-1.1 [facility] Comment on above: Performed By: #### B MP3M, MG3, LFT3, HEMDF, PHOS3, DDI2, ICA, MDIFF, CRP2, FERR3, LDH3 ####[address] Abs Neutrophile Cnt 9.4 10*3/uL High 2.2-8.2 [facility] Comment on above: Performed By: #### B MP3M, MG3, LFT3, HEMDF, PHOS3, DDI2, ICA, MDIFF, CRP2, FERR3, LDH3 ####[address] Anisocytosis Slight Normal [facility] Comment on above: Performed By: #### B MP3M, MG3, LFT3, HEMDF, PHOS3, DDI2, ICA, MDIFF, CRP2, FERR3, LDH3 ####[address] Elliptocytes Few Normal [facility] Comment on above: Performed By: #### B MP3M, MG3, LFT3, HEMDF, PHOS3, DDI2, ICA, MDIFF, CRP2, FERR3, LDH3 ####[address] Eosinophils 1 % Normal 1-6 [facility] Comment on above: Performed By: #### B MP3M, MG3, LFT3, HEMDF, PHOS3, DDI2, ICA, MDIFF, CRP2, FERR3, LDH3 ####[address] Lymphocytes 7 % Low 20-40 [facility] Comment on above: Performed By: #### B MP3M, MG3, LFT3, HEMDF, PHOS3, DDI2, ICA, MDIFF, CRP2, FERR3, LDH3 ####[address] Microcytosis Slight Normal [facility] Comment on above: Performed By: #### B MP3M, MG3, LFT3, HEMDF, PHOS3, DDI2, ICA, MDIFF, CRP2, FERR3, LDH3 ####[address] Monocytes 7 % Normal 2-10 [facility] Comment on above: Performed By: #### B MP3M, MG3, LFT3, HEMDF, PHOS3, DDI2, ICA, MDIFF, CRP2, FERR3, LDH3 ####[address] Ovalocytes Slight Normal [facility] Comment on above: Performed By: #### B MP3M, MG3, LFT3, HEMDF, PHOS3, DDI2, ICA, MDIFF, CRP2, FERR3, LDH3 ####[address] Poikilocytosis Slight Normal [facility] Comment on above: Performed By: #### B MP3M, MG3, LFT3, HEMDF, PHOS3, DDI2, ICA, MDIFF, CRP2, FERR3, LDH3 ####[address] RBC Morphology ABNORMAL Normal [facility] Comment on above: Performed By: #### B MP3M, MG3, LFT3, HEMDF, PHOS3, DDI2, ICA, MDIFF, CRP2, FERR3, LDH3 ####[address] Seg Neutrophils 85 % High 40-80 [facility] Comment on above: Performed By: #### B MP3M, MG3, LFT3, HEMDF, PHOS3, DDI2, ICA, MDIFF, CRP2, FERR3, LDH3 ####[address] Abs Baso Cnt 0.0 10*3/uL Normal 0.0-0.2 [facility] Comment on above: Performed By: #### B MP3M, MG3, LFT3, HEMDF, PHOS3, DDI2, ICA, MDIFF, CRP2, FERR3, LDH3 ####[address] Bands 0 % Normal 0-3 [facility] Comment on above: Performed By: #### B MP3M, MG3, LFT3, HEMDF, PHOS3, DDI2, ICA, MDIFF, CRP2, FERR3, LDH3 ####[address] Basophils 0 % Normal 0-2 [facility] Comment on above: Performed By: #### B MP3M, MG3, LFT3, HEMDF, PHOS3, DDI2, ICA, MDIFF, CRP2, FERR3, LDH3 ####[address] Cells counted 100 Normal [facility] Comment on above: Performed By: #### B MP3M, MG3, LFT3, HEMDF, PHOS3, DDI2, ICA, MDIFF, CRP2, FERR3, LDH3 ####[address] Phosphoruson 06-12-2021 Phosphate [Mass/Vol] 4.3 mg/dL Normal 2.5-4.5 [facility] Comment on above: Performed By: #### B MP3M, MG3, LFT3, HEMDF, PHOS3, DDI2, ICA, MDIFF, CRP2, FERR3, LDH3 ####[id number] [place] [address] STAIN GRAMon 06-12-2021 STAIN GRAM STAIN GRAM --> Statu s: F Many polymorphonuclear cells/lpf. Rare epithelial cells/lpf. Few gram positive cocci in pairs and chains. Few yeast. Rare epithelial cells/lpf. Few gram positive cocci in pairs and chains. Few yeast. Normal [facility] Comment on above: Performed By: #### C S/RE, S/GRM ####[address] [place] [address] Sodiumon 06-12-2021 Sodium [Moles/Vol] 146 mmol/L High 135-145 [facility] Comment on above: Performed By: #### N A3 ####[address] Sodium [Moles/Vol] 146 mmol/L High 135-145 [facility] Comment on above: Performed By: #### N A3 ####[address] Sodium [Moles/Vol] 148 mmol/L High 135-145 [facility] Comment on above: Performed By: #### N A3 ####[address] Arterial Blood Gaseson 06-11 CO2 [Moles/Vol] 34.0 mmol/L High 23.0-27.0 [facility] Comment on above: Performed By: #### A BG ####[address] HCO3 (Bld) [Moles/Vol] 32.5 mmol/L High 21.0-25.0 [facility] Comment on above: Performed By: #### A BG ####[address] Hemoglobin (Bld) [Mass/Vol] 11.6 g/dL Normal ScreenOnly [facility] Comment on above: Performed By: #### A BG ####[address] Oxygen (Bld) [Partial pressure] 72.4 mm[Hg] Low 80.0-100.0 [facility] Comment on above: Performed By: #### A BG ####[address] [place], [place] Oxygen saturation in Blood 93.8 % Low 95.0-100.0 [facility] Comment on above: Performed By: #### A BG ####[address] [place], [place] pCO2 48.1 mm[Hg] High 35.0-45.0 [facility] Comment on above: Performed By: #### A BG ####[address] pH 7.448 Normal 7.350-7.450 [facility] Comment on above: Performed By: #### A BG ####[address] Std Base Excess 7.5 mmol/L High -3.0-3.0 [facility] Comment on above: Performed By: #### A BG ####[address] FIO2 .40 Normal [facility] Comment on above: Performed By: #### A BG ####[address] CO2 [Moles/Vol] 33.8 mmol/L High 23.0-27.0 [facility] Comment on above: Performed By: #### A BG ####[address] HCO3 (Bld) [Moles/Vol] 32.4 mmol/L High 21.0-25.0 [facility] Comment on above: Performed By: #### A BG ####[address] Hemoglobin (Bld) [Mass/Vol] 11.3 g/dL Normal ScreenOnly [facility] Comment on above: Performed By: #### A BG ####[id number] [place], [place] Oxygen (Bld) [Partial pressure] 78.2 mm[Hg] Low 80.0-100.0 [facility] Comment on above: Performed By: #### A BG ####[address] [place], [place] Oxygen saturation in Blood 95.3 % Normal 95.0-100.0 [facility] Comment on above: Performed By: #### A BG ####[address] [place], [place] pCO2 46.2 mm[Hg] High 35.0-45.0 [facility] Comment on above: Performed By: #### A BG ####[address] pH 7.464 High 7.350-7.450 [facility] Comment on above: Performed By: #### A BG ####[address] Std Base Excess 7.7 mmol/L High -3.0-3.0 [facility] Comment on above: Performed By: #### A BG ####[address] FIO2 40% Normal [facility] Comment on above: Performed By: #### A BG ####[address] Basic Metabolic Panelon 07 Calcium [Mass/Vol] 8.8 mg/dL Normal 8.4-10.4 [facility] Comment on above: Performed By: #### L FT3, FERR3, DDI2, PHOS3, MG3, ICA, CRP2, BMP3M, LDH3, HEMDF ####[address] Anion gap [Moles/Vol] 6 mmol/L Normal 3-13 [facility] Comment on above: Performed By: #### L FT3, FERR3, DDI2, PHOS3, MG3, ICA, CRP2, BMP3M, LDH3, HEMDF ####[address] CO2 [Moles/Vol] 32 mmol/L High 22-30 [facility] Comment on above: Performed By: #### L FT3, FERR3, DDI2, PHOS3, MG3, ICA, CRP2, BMP3M, LDH3, HEMDF ####[address] Glucose [Mass/Vol] 133 mg/dL High 70-100 [facility] Comment on above: Performed By: #### L FT3, FERR3, DDI2, PHOS3, MG3, ICA, CRP2, BMP3M, LDH3, HEMDF ####[address] Urea nitrogen [Mass/Vol] 66 mg/dL High 7-20 [facility] Comment on above: Performed By: #### L FT3, FERR3, DDI2, PHOS3, MG3, ICA, CRP2, BMP3M, LDH3, HEMDF ####[address] Creatinine [Mass/Vol] 0.76 mg/dL Normal 0.52-1.25 [facility] Comment on above: Performed By: #### L FT3, FERR3, DDI2, PHOS3, MG3, ICA, CRP2, BMP3M, LDH3, HEMDF ####[address] GFR/1.73 sq M.predicted among blacks MDRD (S/P/Bld) [Vol rate/Area] mL/min/{1.73_m2} Normal >60 [facility] Comment on above: Performed By: #### L FT3, FERR3, DDI2, PHOS3, MG3, ICA, CRP2, BMP3M, LDH3, HEMDF ####[address] GFR/1.73 sq M.predicted among non-blacks MDRD (S/P/Bld) [Vol rate/Area] 89.4 mL/min/{1.73_m2} Normal >60 [facility] Comment on above: Result Comment: KDIG O guidelines provide the following GFR categories:Stage GFR(ml/min/1.73 m2) TermsG1 >=90 Normal or highG2 60-89 Mildly decreased*G3a 45-59 Mildly to moderately [id number] 30-44 Moderately to severely decreasedG4 15-29 Severely [...] PHOS3, MG3, ICA, CRP2, BMP3M, LDH3, HEMDF ####[address] [place], [place] Potassium [Moles/Vol] 4.6 mmol/L Normal 3.5-5.1 [facility] Comment on above: Performed By: #### L FT3, FERR3, DDI2, PHOS3, MG3, ICA, CRP2, BMP3M, LDH3, HEMDF ####[address] [place], [place] Chloride [Moles/Vol] 110 mmol/L High 98-107 [facility] Comment on above: Performed By: #### L FT3, FERR3, DDI2, PHOS3, MG3, ICA, CRP2, BMP3M, LDH3, HEMDF ####[address] [place], [place] Sodium [Moles/Vol] 147 mmol/L High 135-145 [facility] Comment on above: Performed By: #### L FT3, FERR3, DDI2, PHOS3, MG3, ICA, CRP2, BMP3M, LDH3, HEMDF ####[address] [place] [address] C-Reactive Proteinon 021 CRP [Mass/Vol] 6.0 mg/L Normal 0.0-6.0 [facility] Comment on above: Result Comment: . Performed By: #### L FT3, FERR3, DDI2, PHOS3, MG3, ICA, CRP2, BMP3M, LDH3, HEMDF ####[address] [place] [address] CR Chest Portableon 06-11-20 21 CR Chest Portable Normal [facility] Calcium,Ionizedon 06-11-2021 Ionized Ca,Measured 4.20 mg/dL Low 4.30-5.20 [facility] Comment on above: Performed By: #### L FT3, FERR3, DDI2, PHOS3, MG3, ICA, CRP2, BMP3M, LDH3, HEMDF ####[address] [address] pH, Ionized Calcium 7.51 High 7.31-7.46 [facility] Comment on above: Performed By: #### L FT3, FERR3, DDI2, PHOS3, MG3, ICA, CRP2, BMP3M, LDH3, HEMDF ####[address] [address] D-Dimer, Innovanceon 021 D-Dimer, [employer] 18.90 mg/L High <0.19-0.50 [facility] Comment on above: Result Comment: Inno carrington D-Dimer values of <0.50 mg/L FEU can be used incombination with a pre-test probability model (e.g. Well's)to exclude pulmonary embolism (PE) disease, as well as jodi in the diagnosis of deep vein thrombosis (DVT). Performed By: #### L FT3, FERR3, DDI2, PHOS3, MG3, ICA, CRP2, BMP3M, LDH3, HEMDF ####[address] [place] [address] Ferritinon 06-11-2021 Ferritin [Mass/Vol] 43 ng/mL Normal 8-252 [facility] Comment on above: Performed By: #### L FT3, FERR3, DDI2, PHOS3, MG3, ICA, CRP2, BMP3M, LDH3, HEMDF ####[address] [place] [address] Glucose,Bedsideon 06-11-2021 Glucose [Mass/Vol] 154 mg/dL High 70-100 [facility] Comment on above: Result Comment: Test performed by glucose meter. Results may be 10%-15% lowerthan serum/plasma values. (CLIA ID [id number]) Performed By: #### B GLU ####[address] [place] [address] Glucose [Mass/Vol] 184 mg/dL High 70-100 [facility] Comment on above: Result Comment: Test performed by glucose meter. Results may be 10%-15% lowerthan serum/plasma values. (CLIA ID [id number]) Performed By: #### B GLU ####[facility] [employer] [id number] [place] [address] Glucose [Mass/Vol] 125 mg/dL High 70-100 [facility] Comment on above: Result Comment: Test performed by glucose meter. Results may be 10%-15% lowerthan serum/plasma values. (CLIA ID [id number]) Performed By: #### B GLU ####[facility] [employer] [id number] [place] [address] Glucose [Mass/Vol] 138 mg/dL High 70-100 [facility] Comment on above: Result Comment: Test performed by glucose meter. Results may be 10%-15% lowerthan serum/plasma values. (CLIA ID [id number]) Performed By: #### B GLU ####[facility] [employer] [id number] [place] [address] Hemogram w/ Autodiffon 07-13 -2021 Abs Baso Cnt 0.1 10*3/uL Normal 0.0-0.2 [facility] Comment on above: Performed By: #### L FT3, FERR3, DDI2, PHOS3, MG3, ICA, CRP2, BMP3M, LDH3, HEMDF ####[address] Abs Neutrophile Cnt 10.1 10*3/uL High 1.8-7.0 [facility] Comment on above: Performed By: #### L FT3, FERR3, DDI2, PHOS3, MG3, ICA, CRP2, BMP3M, LDH3, HEMDF ####[address] Basophils/100 WBC (Bld) 0.9 % Normal 0.0-2.0 [facility] Comment on above: Performed By: #### L FT3, FERR3, DDI2, PHOS3, MG3, ICA, CRP2, BMP3M, LDH3, HEMDF ####[address] Eosinophils (Bld) [#/Vol] 0.0 10*3/uL Normal 0.0-0.5 [facility] Comment on above: Performed By: #### L FT3, FERR3, DDI2, PHOS3, MG3, ICA, CRP2, BMP3M, LDH3, HEMDF ####[address] Eosinophils/100 WBC (Bld) 0.3 % Low 1.0-6.0 [facility] Comment on above: Performed By: #### L FT3, FERR3, DDI2, PHOS3, MG3, ICA, CRP2, BMP3M, LDH3, HEMDF ####[address] Erythrocyte distribution width (RBC) [Ratio] 20.8 % High 11.5-14.5 [facility] Comment on above: Performed By: #### L FT3, FERR3, DDI2, PHOS3, MG3, ICA, CRP2, BMP3M, LDH3, HEMDF ####[address] Granulocytes/100 WBC (Bld) 83.4 % High 40.0-80.0 [facility] Comment on above: Performed By: #### L FT3, FERR3, DDI2, PHOS3, MG3, ICA, CRP2, BMP3M, LDH3, HEMDF ####[address] [place], [place] Hematocrit (Bld) [Volume fraction] 34.3 % Low 35.0-47.0 [facility] Comment on above: Performed By: #### L FT3, FERR3, DDI2, PHOS3, MG3, ICA, CRP2, BMP3M, LDH3, HEMDF ####[address] Hemoglobin (Bld) [Mass/Vol] 10.7 g/dL Low 11.7-16.0 [facility] Comment on above: Performed By: #### L FT3, FERR3, DDI2, PHOS3, MG3, ICA, CRP2, BMP3M, LDH3, HEMDF ####[address] Lymphocytes (Bld) [#/Vol] 0.6 10*3/uL Low 1.0-4.3 [facility] Comment on above: Performed By: #### L FT3, FERR3, DDI2, PHOS3, MG3, ICA, CRP2, BMP3M, LDH3, HEMDF ####[address] Lymphocytes/100 WBC (Bld) 5.2 % Low 20.0-40.0 [facility] Comment on above: Performed By: #### L FT3, FERR3, DDI2, PHOS3, MG3, ICA, CRP2, BMP3M, LDH3, HEMDF ####[address] MCH (RBC) [Entitic mass] 22.1 pg Low 26.0-34.0 [facility] Comment on above: Performed By: #### L FT3, FERR3, DDI2, PHOS3, MG3, ICA, CRP2, BMP3M, LDH3, HEMDF ####[address] [place], [place] MCHC 31.2 % Low 32.0-36.0 [facility] Comment on above: Performed By: #### L FT3, FERR3, DDI2, PHOS3, MG3, ICA, CRP2, BMP3M, LDH3, HEMDF ####[address] MCV (RBC) [Entitic vol] 70.9 fL Low 79.0-98.0 [facility] Comment on above: Performed By: #### L FT3, FERR3, DDI2, PHOS3, MG3, ICA, CRP2, BMP3M, LDH3, HEMDF ####[address] Monocytes (Bld) [#/Vol] 1.2 10*3/uL High 0.0-0.8 [facility] Comment on above: Performed By: #### L FT3, FERR3, DDI2, PHOS3, MG3, ICA, CRP2, BMP3M, LDH3, HEMDF ####[address] Monocytes/100 WBC (Bld) 10.2 % High 2.0-10.0 [facility] Comment on above: Performed By: #### L FT3, FERR3, DDI2, PHOS3, MG3, ICA, CRP2, BMP3M, LDH3, HEMDF ####[address] Platelet mean volume (Bld) [Entitic vol] 7.9 fL Normal 7.4-10.4 [facility] Comment on above: Performed By: #### L FT3, FERR3, DDI2, PHOS3, MG3, ICA, CRP2, BMP3M, LDH3, HEMDF ####[address] [place], [place] Platelets (Bld) [#/Vol] 265 10*3/uL Normal 140-440 [facility] Comment on above: Performed By: #### L FT3, FERR3, DDI2, PHOS3, MG3, ICA, CRP2, BMP3M, LDH3, HEMDF ####[address] [place], [place] RBC (Bld) [#/Vol] 4.85 10*6/uL Normal 3.80-5.20 [facility] Comment on above: Performed By: #### L FT3, FERR3, DDI2, PHOS3, MG3, ICA, CRP2, BMP3M, LDH3, HEMDF ####[id number] [place], [place] WBC (Bld) [#/Vol] 12.1 10*3/uL High 3.6-10.7 [facility] Comment on above: Performed By: #### L FT3, FERR3, DDI2, PHOS3, MG3, ICA, CRP2, BMP3M, LDH3, HEMDF ####[id number] [place], [place] Hepatic Functionon 1 ALP [Catalytic activity/Vol] 81 U/L Normal 38-126 [facility] Comment on above: Performed By: #### L FT3, FERR3, DDI2, PHOS3, MG3, ICA, CRP2, BMP3M, LDH3, HEMDF ####[id number] [place], [place] ALT [Catalytic activity/Vol] 72 U/L High 0-34 [facility] Comment on above: Result Comment: The ALT test is performed by an updated assay method.Please note that the reference intervals have beenchanged and are now sex specific. Performed By: #### L FT3, FERR3, DDI2, PHOS3, MG3, ICA, CRP2, BMP3M, LDH3, HEMDF ####[address] AST [Catalytic activity/Vol] 32 U/L Normal 15-46 [facility] Comment on above: Performed By: #### L FT3, FERR3, DDI2, PHOS3, MG3, ICA, CRP2, BMP3M, LDH3, HEMDF ####[address] Bilirubin [Mass/Vol] 0.4 mg/dL Normal 0.2-1.3 [facility] Comment on above: Performed By: #### L FT3, FERR3, DDI2, PHOS3, MG3, ICA, CRP2, BMP3M, LDH3, HEMDF ####[address] Protein [Mass/Vol] 6.3 g/dL Normal 6.3-8.2 [facility] Comment on above: Performed By: #### L FT3, FERR3, DDI2, PHOS3, MG3, ICA, CRP2, BMP3M, LDH3, HEMDF ####[address] Bilirubin.indirect [Mass/Vol] 0.0 mg/dL Normal 0.0-0.3 [facility] Comment on above: Performed By: #### L FT3, FERR3, DDI2, PHOS3, MG3, ICA, CRP2, BMP3M, LDH3, HEMDF ####[address] Albumin [Mass/Vol] 3.2 g/dL Low 3.5-5.0 [facility] Comment on above: Performed By: #### L FT3, FERR3, DDI2, PHOS3, MG3, ICA, CRP2, BMP3M, LDH3, HEMDF ####[address] LDHon 06-11-2021 LDH 264 U/L High 120-246 [facility] Comment on above: Performed By: #### L FT3, FERR3, DDI2, PHOS3, MG3, ICA, CRP2, BMP3M, LDH3, HEMDF ####[address] [place] [address] Magnesiumon 06-11-2021 Magnesium [Mass/Vol] 2.6 mg/dL High 1.6-2.3 [facility] Comment on above: Performed By: #### L FT3, FERR3, DDI2, PHOS3, MG3, ICA, CRP2, BMP3M, LDH3, HEMDF ####[address] [place] [address] Phosphoruson 06-11-2021 Phosphate [Mass/Vol] 3.7 mg/dL Normal 2.5-4.5 [facility] Comment on above: Performed By: #### L FT3, FERR3, DDI2, PHOS3, MG3, ICA, CRP2, BMP3M, LDH3, HEMDF ####[address] [place] [address] Arterial Blood Gaseson 06-10 CO2 [Moles/Vol] 36.1 mmol/L High 23.0-27.0 [facility] Comment on above: Performed By: #### A BG ####[address] [place] [address] HCO3 (Bld) [Moles/Vol] 34.5 mmol/L High 21.0-25.0 [facility] Comment on above: Performed By: #### A BG ####[address] [place] [address] Hemoglobin (Bld) [Mass/Vol] 12.2 g/dL Normal ScreenOnly [facility] Comment on above: Performed By: #### A BG ####[address] [place] [address] Oxygen (Bld) [Partial pressure] 87.2 mm[Hg] Normal 80.0-100.0 [facility] Comment on above: Performed By: #### A BG ####[address] Oxygen saturation in Blood 95.5 % Normal 95.0-100.0 [facility] Comment on above: Performed By: #### A BG ####[address] [place] pCO2 50.8 mm[Hg] High 35.0-45.0 [facility] Comment on above: Performed By: #### A BG ####[address] [place] pH 7.450 Normal 7.350-7.450 [facility] Comment on above: Performed By: #### A BG ####[address] Std Base Excess 9.1 mmol/L High -3.0-3.0 [facility] Comment on above: Performed By: #### A BG ####[address] [place], [place] FIO2 No data Normal [facility] Comment on above: Performed By: #### A BG ####[address] FIO2 No data, on ice Normal [facility] Comment on above: Result [...] clinically indicated. Performed By: #### A BG ####[address] [place] CO2 [Moles/Vol] 35.3 mmol/L High 23.0-27.0 [facility] Comment on above: Performed By: #### A BG ####[address] [place], [place] HCO3 (Bld) [Moles/Vol] 33.9 mmol/L High 21.0-25.0 [facility] Comment on above: Performed By: #### A BG ####[address] Hemoglobin (Bld) [Mass/Vol] 11.7 g/dL Normal ScreenOnly [facility] Comment on above: Performed By: #### A BG ####[address] [place], [place] Oxygen (Bld) [Partial pressure] 68.7 mm[Hg] Low 80.0-100.0 [facility] Comment on above: Performed By: #### A BG ####[address] [place], [place] Oxygen saturation in Blood 92.6 % Low 95.0-100.0 [facility] Comment on above: Performed By: #### A BG ####[address] [place], [place] pCO2 44.4 mm[Hg] Normal 35.0-45.0 [facility] Comment on above: Performed By: #### A BG ####[address] pH 7.501 High 7.350-7.450 [facility] Comment on above: Performed By: #### A BG ####[address] Std Base Excess 9.7 mmol/L High -3.0-3.0 [facility] Comment on above: Performed By: #### A BG ####[address] [place], [place] Basic Metabolic Panelon 05-30 Anion gap [Moles/Vol] 5 mmol/L Normal 3-13 [facility] Comment on above: Performed By: #### L FT3, BMP3M, HEMDF, CRP2, DDI2, MG3, LDH3, PHOS3, FERR3, ICA ####[address] [place], [place] Calcium [Mass/Vol] 8.9 mg/dL Normal 8.4-10.4 [facility] Comment on above: Performed By: #### L FT3, BMP3M, HEMDF, CRP2, DDI2, MG3, LDH3, PHOS3, FERR3, ICA ####[address] [place] CO2 [Moles/Vol] 32 mmol/L High 22-30 [facility] Comment on above: Performed By: #### L FT3, BMP3M, HEMDF, CRP2, DDI2, MG3, LDH3, PHOS3, FERR3, ICA ####[address] [place], [place] Glucose [Mass/Vol] 129 mg/dL High 70-100 [facility] Comment on above: Performed By: #### L FT3, BMP3M, HEMDF, CRP2, DDI2, MG3, LDH3, PHOS3, FERR3, ICA ####[address] Urea nitrogen [Mass/Vol] 65 mg/dL High 7-20 [facility] Comment on above: Performed By: #### L FT3, BMP3M, HEMDF, CRP2, DDI2, MG3, LDH3, PHOS3, FERR3, ICA ####[address] Creatinine [Mass/Vol] 0.81 mg/dL Normal 0.52-1.25 [facility] Comment on above: Performed By: #### L FT3, BMP3M, HEMDF, CRP2, DDI2, MG3, LDH3, PHOS3, FERR3, ICA ####[address] GFR/1.73 sq M.predicted among blacks MDRD (S/P/Bld) [Vol rate/Area] mL/min/{1.73_m2} Normal >60 [facility] Comment on above: Performed By: #### L FT3, BMP3M, HEMDF, CRP2, DDI2, MG3, LDH3, PHOS3, FERR3, ICA ####[address] [place], [place] GFR/1.73 sq M.predicted among non-blacks MDRD (S/P/Bld) [Vol rate/Area] 82.7 mL/min/{1.73_m2} Normal >60 [facility] Comment on above: Result Comment: KDIG O guidelines provide the following GFR categories:Stage GFR(ml/min/1.73 m2) TermsG1 >=90 Normal or highG2 60-89 Mildly decreased*G3a 45-59 Mildly to moderately [id number] 30-44 Moderately to severely decreasedG4 15-29 Severely [...] CRP2, DDI2, MG3, LDH3, PHOS3, FERR3, ICA ####[address] [place], [place] Potassium [Moles/Vol] 4.2 mmol/L Normal 3.5-5.1 [facility] Comment on above: Performed By: #### L FT3, BMP3M, HEMDF, CRP2, DDI2, MG3, LDH3, PHOS3, FERR3, ICA ####[address] [place], [place] Sodium [Moles/Vol] 146 mmol/L High 135-145 [facility] Comment on above: Performed By: #### L FT3, BMP3M, HEMDF, CRP2, DDI2, MG3, LDH3, PHOS3, FERR3, ICA ####[address] [place], [place] Chloride [Moles/Vol] 109 mmol/L High 98-107 [facility] Comment on above: Performed By: #### L FT3, BMP3M, HEMDF, CRP2, DDI2, MG3, LDH3, PHOS3, FERR3, ICA ####[address] [place] [address] C-Reactive Proteinon 021 CRP [Mass/Vol] 7.1 mg/L High 0.0-6.0 [facility] Comment on above: Result Comment: . Performed By: #### L FT3, BMP3M, HEMDF, CRP2, DDI2, MG3, LDH3, PHOS3, FERR3, ICA ####[address] [place], [place] CR Chest Portableon 06-10-20 21 CR Chest Portable Normal [facility] CULT./ST. RESPIRATORYon 05-30 CULT./ST. RESPIRATORY CULT./ST. RESPIRAT ORY --> Status: F No growth of normal respiratory pretty. 1 Organism Evin albicans Few Normal [facility] Comment on above: Performed By: #### C S/RE, S/GRM ####[address] [place], [place] Calcium,Ionizedon 06-10-2021 Ionized Ca,Measured 4.60 mg/dL Normal 4.30-5.20 [facility] Comment on above: Performed By: #### L FT3, BMP3M, HEMDF, CRP2, DDI2, MG3, LDH3, PHOS3, FERR3, ICA ####[address] [place], [place] pH, Ionized Calcium 7.49 High 7.31-7.46 [facility] Comment on above: Performed By: #### L FT3, BMP3M, HEMDF, CRP2, DDI2, MG3, LDH3, PHOS3, FERR3, ICA ####[address] [place], [place] D-Dimer, Innovanceon 021 D-Dimer, Innovance 20.61 mg/L High <0.19-0.50 [facility] Comment on above: Result Comment: Inno carrington D-Dimer values of <0.50 mg/L FEU can be used incombination with a pre-test probability model (e.g. Well's)to exclude pulmonary embolism (PE) disease, as well as jodi in the diagnosis of deep vein thrombosis (DVT). Performed By: #### L FT3, BMP3M, HEMDF, CRP2, DDI2, MG3, LDH3, PHOS3, FERR3, ICA ####[email or web address] [id number] [place] [address] Ferritinon 06-10-2021 Ferritin [Mass/Vol] 54 ng/mL Normal 8-252 [facility] Comment on above: Performed By: #### L FT3, BMP3M, HEMDF, CRP2, DDI2, MG3, LDH3, PHOS3, FERR3, ICA ####[email or web address] [id number] [place] [address] Glucose,Bedsideon 06-10-2021 Glucose [Mass/Vol] 150 mg/dL High 70-100 [facility] Comment on above: Result Comment: Test performed by glucose meter. Results may be 10%-15% lowerthan serum/plasma values. (CLIA ID [id number]) Performed By: #### B GLU ####[address] [place] [address] Glucose [Mass/Vol] 164 mg/dL High 70-100 [facility] Comment on above: Result Comment: Test performed by glucose meter. Results may be 10%-15% lowerthan serum/plasma values. (CLIA ID [id number]) Performed By: #### B GLU ####[address] [place] [address] Glucose [Mass/Vol] 130 mg/dL High 70-100 [facility] Comment on above: Result Comment: Test performed by glucose meter. Results may be 10%-15% lowerthan serum/plasma values. (CLIA ID [id number]) Performed By: #### B GLU ####[employer] [facility] [id number] [place] [address] Glucose [Mass/Vol] 121 mg/dL High 70-100 [facility] Comment on above: Result Comment: Test performed by glucose meter. Results may be 10%-15% lowerthan serum/plasma values. (CLIA ID [id number]) Performed By: #### B GLU ####[address] Hemogram w/ Autodiffon 06-10 Abs Baso Cnt 0.0 10*3/uL Normal 0.0-0.2 [facility] Comment on above: Performed By: #### L FT3, BMP3M, HEMDF, CRP2, DDI2, MG3, LDH3, PHOS3, FERR3, ICA ####[address] Abs Neutrophile Cnt 8.8 10*3/uL High 1.8-7.0 [facility] Comment on above: Performed By: #### L FT3, BMP3M, HEMDF, CRP2, DDI2, MG3, LDH3, PHOS3, FERR3, ICA ####[address] Basophils/100 WBC (Bld) 0.2 % Normal 0.0-2.0 [facility] Comment on above: Performed By: #### L FT3, BMP3M, HEMDF, CRP2, DDI2, MG3, LDH3, PHOS3, FERR3, ICA ####[address] Eosinophils (Bld) [#/Vol] 0.1 10*3/uL Normal 0.0-0.5 [facility] Comment on above: Performed By: #### L FT3, BMP3M, HEMDF, CRP2, DDI2, MG3, LDH3, PHOS3, FERR3, ICA ####[address] Eosinophils/100 WBC (Bld) 1.2 % Normal 1.0-6.0 [facility] Comment on above: Performed By: #### L FT3, BMP3M, HEMDF, CRP2, DDI2, MG3, LDH3, PHOS3, FERR3, ICA ####[address] Erythrocyte distribution width (RBC) [Ratio] 20.6 % High 11.5-14.5 [facility] Comment on above: Performed By: #### L FT3, BMP3M, HEMDF, CRP2, DDI2, MG3, LDH3, PHOS3, FERR3, ICA ####[address] Granulocytes/100 WBC (Bld) 82.5 % High 40.0-80.0 [facility] Comment on above: Performed By: #### L FT3, BMP3M, HEMDF, CRP2, DDI2, MG3, LDH3, PHOS3, FERR3, ICA ####[address] Hematocrit (Bld) [Volume fraction] 33.7 % Low 35.0-47.0 [facility] Comment on above: Performed By: #### L FT3, BMP3M, HEMDF, CRP2, DDI2, MG3, LDH3, PHOS3, FERR3, ICA ####[address] Hemoglobin (Bld) [Mass/Vol] 10.6 g/dL Low 11.7-16.0 [facility] Comment on above: Performed By: #### L FT3, BMP3M, HEMDF, CRP2, DDI2, MG3, LDH3, PHOS3, FERR3, ICA ####[address] Lymphocytes (Bld) [#/Vol] 0.7 10*3/uL Low 1.0-4.3 [facility] Comment on above: Performed By: #### L FT3, BMP3M, HEMDF, CRP2, DDI2, MG3, LDH3, PHOS3, FERR3, ICA ####[address] Lymphocytes/100 WBC (Bld) 6.9 % Low 20.0-40.0 [facility] Comment on above: Performed By: #### L FT3, BMP3M, HEMDF, CRP2, DDI2, MG3, LDH3, PHOS3, FERR3, ICA ####[address] [place], [place] MCH (RBC) [Entitic mass] 22.5 pg Low 26.0-34.0 [facility] Comment on above: Performed By: #### L FT3, BMP3M, HEMDF, CRP2, DDI2, MG3, LDH3, PHOS3, FERR3, ICA ####[address] MCHC 31.4 % Low 32.0-36.0 [facility] Comment on above: Performed By: #### L FT3, BMP3M, HEMDF, CRP2, DDI2, MG3, LDH3, PHOS3, FERR3, ICA ####[address] MCV (RBC) [Entitic vol] 71.7 fL Low 79.0-98.0 [facility] Comment on above: Performed By: #### L FT3, BMP3M, HEMDF, CRP2, DDI2, MG3, LDH3, PHOS3, FERR3, ICA ####[address] Monocytes (Bld) [#/Vol] 1.0 10*3/uL High 0.0-0.8 [facility] Comment on above: Performed By: #### L FT3, BMP3M, HEMDF, CRP2, DDI2, MG3, LDH3, PHOS3, FERR3, ICA ####[address] Monocytes/100 WBC (Bld) 9.2 % Normal 2.0-10.0 [facility] Comment on above: Performed By: #### L FT3, BMP3M, HEMDF, CRP2, DDI2, MG3, LDH3, PHOS3, FERR3, ICA ####[address] [place] Platelet mean volume (Bld) [Entitic vol] 7.9 fL Normal 7.4-10.4 [facility] Comment on above: Performed By: #### L FT3, BMP3M, HEMDF, CRP2, DDI2, MG3, LDH3, PHOS3, FERR3, ICA ####[address] [place], [place] Platelets (Bld) [#/Vol] 253 10*3/uL Normal 140-440 [facility] Comment on above: Performed By: #### L FT3, BMP3M, HEMDF, CRP2, DDI2, MG3, LDH3, PHOS3, FERR3, ICA ####[address] [place], [place] RBC (Bld) [#/Vol] 4.70 10*6/uL Normal 3.80-5.20 [facility] Comment on above: Performed By: #### L FT3, BMP3M, HEMDF, CRP2, DDI2, MG3, LDH3, PHOS3, FERR3, ICA ####[address] [place], [place] WBC (Bld) [#/Vol] 10.7 10*3/uL Normal 3.6-10.7 [facility] Comment on above: Performed By: #### L FT3, BMP3M, HEMDF, CRP2, DDI2, MG3, LDH3, PHOS3, FERR3, ICA ####[address] [place], [place] Hepatic Functionon 1 ALP [Catalytic activity/Vol] 80 U/L Normal 38-126 [facility] Comment on above: Performed By: #### L FT3, BMP3M, HEMDF, CRP2, DDI2, MG3, LDH3, PHOS3, FERR3, ICA ####[address] [place], [place] ALT [Catalytic activity/Vol] 85 U/L High 0-34 [facility] Comment on above: Result Comment: The ALT test is performed by an updated assay method.Please note that the reference intervals have beenchanged and are now sex specific. Performed By: #### L FT3, BMP3M, HEMDF, CRP2, DDI2, MG3, LDH3, PHOS3, FERR3, ICA ####[address] AST [Catalytic activity/Vol] 38 U/L Normal 15-46 [facility] Comment on above: Performed By: #### L FT3, BMP3M, HEMDF, CRP2, DDI2, MG3, LDH3, PHOS3, FERR3, ICA ####[address] Bilirubin [Mass/Vol] 0.6 mg/dL Normal 0.2-1.3 [facility] Comment on above: Performed By: #### L FT3, BMP3M, HEMDF, CRP2, DDI2, MG3, LDH3, PHOS3, FERR3, ICA ####[address] Bilirubin.indirect [Mass/Vol] 0.0 mg/dL Normal 0.0-0.3 [facility] Comment on above: Performed By: #### L FT3, BMP3M, HEMDF, CRP2, DDI2, MG3, LDH3, PHOS3, FERR3, ICA ####[address] Protein [Mass/Vol] 6.5 g/dL Normal 6.3-8.2 [facility] Comment on above: Performed By: #### L FT3, BMP3M, HEMDF, CRP2, DDI2, MG3, LDH3, PHOS3, FERR3, ICA ####[address] Albumin [Mass/Vol] 3.2 g/dL Low 3.5-5.0 [facility] Comment on above: Performed By: #### L FT3, BMP3M, HEMDF, CRP2, DDI2, MG3, LDH3, PHOS3, FERR3, ICA ####[address] [place] [address] LDHon 06-10-2021 LDH 268 U/L High 120-246 [facility] Comment on above: Performed By: #### L FT3, BMP3M, HEMDF, CRP2, DDI2, MG3, LDH3, PHOS3, FERR3, ICA ####[facility] [place], [place] Magnesiumon 06-10-2021 Magnesium [Mass/Vol] 2.7 mg/dL High 1.6-2.3 [facility] Comment on above: Performed By: #### L FT3, BMP3M, HEMDF, CRP2, DDI2, MG3, LDH3, PHOS3, FERR3, ICA ####[address] [place] [address] Phosphoruson 06-10-2021 Phosphate [Mass/Vol] 3.5 mg/dL Normal 2.5-4.5 [facility] Comment on above: Performed By: #### L FT3, BMP3M, HEMDF, CRP2, DDI2, MG3, LDH3, PHOS3, FERR3, ICA ####[address] [place], [place] VL Venous Duplex US Upper Ex t Bilateralon 06-10-2021 VL Venous Duplex US Upper Ext Bilateral Normal [facility] Arterial Blood Gaseson 06-09 CO2 [Moles/Vol] 31.8 mmol/L High 23.0-27.0 [facility] Comment on above: Performed By: #### A BG ####[address] [place], [place] HCO3 (Bld) [Moles/Vol] 30.4 mmol/L High 21.0-25.0 [facility] Comment on above: Performed By: #### A BG ####[address] [place] [address] Hemoglobin (Bld) [Mass/Vol] 10.9 g/dL Normal ScreenOnly [facility] Comment on above: Performed By: #### A BG ####[address] [place], [place] Oxygen (Bld) [Partial pressure] 85.3 mm[Hg] Normal 80.0-100.0 [facility] Comment on above: Performed By: #### A BG ####[address] [place], [place] Oxygen saturation in Blood 96.1 % Normal 95.0-100.0 [facility] Comment on above: Performed By: #### A BG ####[address] [place], [place] pCO2 45.2 mm[Hg] High 35.0-45.0 [facility] Comment on above: Performed By: #### A BG ####[address] pH 7.446 Normal 7.350-7.450 [facility] Comment on above: Performed By: #### A BG ####[address] Std Base Excess 5.7 mmol/L High -3.0-3.0 [facility] Comment on above: Performed By: #### A BG ####[address] FIO2 40% Normal [facility] Comment on above: Performed By: #### A BG ####[address] [place], [place] CO2 [Moles/Vol] 31.6 mmol/L High 23.0-27.0 [facility] Comment on above: Performed By: #### A BG ####[address] HCO3 (Bld) [Moles/Vol] 30.2 mmol/L High 21.0-25.0 [facility] Comment on above: Performed By: #### A BG ####[address] Hemoglobin (Bld) [Mass/Vol] 12.4 g/dL Normal ScreenOnly [facility] Comment on above: Performed By: #### A BG ####[address] [place], [place] Oxygen (Bld) [Partial pressure] 77.1 mm[Hg] Low 80.0-100.0 [facility] Comment on above: Performed By: #### A BG ####[address] [place], [place] Oxygen saturation in Blood 94.9 % Low 95.0-100.0 [facility] Comment on above: Performed By: #### A BG ####[address] [place] pCO2 46.4 mm[Hg] High 35.0-45.0 [facility] Comment on above: Performed By: #### A BG ####[address] [place], [place] pH 7.431 Normal 7.350-7.450 [facility] Comment on above: Performed By: #### A BG ####[address] Std Base Excess 5.1 mmol/L High -3.0-3.0 [facility] Comment on above: Performed By: #### A BG ####[address] FIO2 No data Normal [facility] Comment on above: Performed By: #### A BG ####[address] Basic Metabolic Panelon 07- Calcium [Mass/Vol] 8.6 mg/dL Normal 8.4-10.4 [facility] Comment on above: Performed By: #### L DH3, ICA, HEMDF, BMP3M, LFT3, CRP2, MG3, FERR3, PHOS3, DDI2 ####[address] [place], [place] Anion gap [Moles/Vol] 4 mmol/L Normal 3-13 [facility] Comment on above: Performed By: #### L DH3, ICA, HEMDF, BMP3M, LFT3, CRP2, MG3, FERR3, PHOS3, DDI2 ####[address] CO2 [Moles/Vol] 32 mmol/L High 22-30 [facility] Comment on above: Performed By: #### L DH3, ICA, HEMDF, BMP3M, LFT3, CRP2, MG3, FERR3, PHOS3, DDI2 ####[address] Glucose [Mass/Vol] 125 mg/dL High 70-100 [facility] Comment on above: Performed By: #### L DH3, ICA, HEMDF, BMP3M, LFT3, CRP2, MG3, FERR3, PHOS3, DDI2 ####[address] Urea nitrogen [Mass/Vol] 72 mg/dL High 7-20 [facility] Comment on above: Performed By: #### L DH3, ICA, HEMDF, BMP3M, LFT3, CRP2, MG3, FERR3, PHOS3, DDI2 ####[address] Creatinine [Mass/Vol] 1.10 mg/dL Normal 0.52-1.25 [facility] Comment on above: Performed By: #### L DH3, ICA, HEMDF, BMP3M, LFT3, CRP2, MG3, FERR3, PHOS3, DDI2 ####[address] GFR/1.73 sq M.predicted among blacks MDRD (S/P/Bld) [Vol rate/Area] 66.2 mL/min/{1.73_m2} Normal >60 [facility] Comment on above: Performed By: #### L DH3, ICA, HEMDF, BMP3M, LFT3, CRP2, MG3, FERR3, PHOS3, DDI2 ####[address] GFR/1.73 sq M.predicted among non-blacks MDRD (S/P/Bld) [Vol rate/Area] 57.1 mL/min/{1.73_m2} Abnormal >60 [facility] Comment on above: Result Comment: KDIG O guidelines provide the following GFR categories:Stage GFR(ml/min/1.73 m2) TermsG1 >=90 Normal or highG2 60-89 Mildly decreased*G3a 45-59 Mildly to moderately [id number] 30-44 Moderately to severely decreasedG4 15-29 Severely [...] BMP3M, LFT3, CRP2, MG3, FERR3, PHOS3, DDI2 ####[address] Potassium [Moles/Vol] 4.0 mmol/L Normal 3.5-5.1 [facility] Comment on above: Performed By: #### L DH3, ICA, HEMDF, BMP3M, LFT3, CRP2, MG3, FERR3, PHOS3, DDI2 ####[address] [place], [place] Chloride [Moles/Vol] 108 mmol/L High 98-107 [facility] Comment on above: Performed By: #### L DH3, ICA, HEMDF, BMP3M, LFT3, CRP2, MG3, FERR3, PHOS3, DDI2 ####[address] Sodium [Moles/Vol] 143 mmol/L Normal 135-145 [facility] Comment on above: Performed By: #### L DH3, ICA, HEMDF, BMP3M, LFT3, CRP2, MG3, FERR3, PHOS3, DDI2 ####[address] [place], [place] C-Reactive Proteinon 021 CRP [Mass/Vol] 9.7 mg/L High 0.0-6.0 [facility] Comment on above: Result Comment: . Performed By: #### L DH3, ICA, HEMDF, BMP3M, LFT3, CRP2, MG3, FERR3, PHOS3, DDI2 ####[address] [place], [place] CR Chest Portableon 06-09-20 21 CR Chest Portable Normal [facility] CULTURE BLOODon 06-09-2021 Microscopic examination of blood, culture CULTURE BLOOD --> Status: F No growth at 5 days. Normal [facility] Comment on above: Performed By: #### C /BLD ####[address] CULTURE BLOOD (Two)on 2020 Microscopic examination of blood, culture CULTURE BLOOD (Two) --> Status: F No growth at 5 days. Normal [facility] Comment on above: Performed By: #### C /BLT ####[address] Calcium,Ionizedon 06-09-2021 Ionized Ca,Measured 4.50 mg/dL Normal 4.30-5.20 [facility] Comment on above: Performed By: #### L DH3, ICA, HEMDF, BMP3M, LFT3, CRP2, MG3, FERR3, PHOS3, DDI2 ####[address] [place], [place] pH, Ionized Calcium 7.44 Normal 7.31-7.46 [facility] Comment on above: Performed By: #### L DH3, ICA, HEMDF, BMP3M, LFT3, CRP2, MG3, FERR3, PHOS3, DDI2 ####[address] [place] [address] D-Dimer, Innovanceon 06-09- 021 D-Dimer, Innovance 25.09 mg/L High <0.19-0.50 [facility] Comment on above: Result Comment: Inno carrington D-Dimer values of <0.50 mg/L FEU can be used incombination with a pre-test probability model (e.g. Well's)to exclude pulmonary embolism (PE) disease, as well as jodi in the diagnosis of deep vein thrombosis (DVT). Performed By: #### L DH3, ICA, HEMDF, BMP3M, LFT3, CRP2, MG3, FERR3, PHOS3, DDI2 ####[address] [place] [address] Ferritinon 06-09-2021 Ferritin [Mass/Vol] 62 ng/mL Normal 8-252 [facility] Comment on above: Performed By: #### L DH3, ICA, HEMDF, BMP3M, LFT3, CRP2, MG3, FERR3, PHOS3, DDI2 ####[address] [place] [address] Glucose,Bedsideon 06-09-2021 Glucose [Mass/Vol] 154 mg/dL High 70-100 [facility] Comment on above: Result Comment: Test performed by glucose meter. Results may be 10%-15% lowerthan serum/plasma values. (CLIA ID [id number]) Performed By: #### B GLU ####[address] [place] [address] Glucose [Mass/Vol] 179 mg/dL High 70-100 [facility] Comment on above: Result Comment: Test performed by glucose meter. Results may be 10%-15% lowerthan serum/plasma values. (CLIA ID [id number]) Performed By: #### B GLU ####[address] [place] [address] Glucose [Mass/Vol] 128 mg/dL High 70-100 [facility] Comment on above: Result Comment: Test performed by glucose meter. Results may be 10%-15% lowerthan serum/plasma values. (CLIA ID [id number]) Performed By: #### B GLU ####[address] Hemogram w/ Autodiffon 06-09 Abs Baso Cnt 0.0 10*3/uL Normal 0.0-0.2 [facility] Comment on above: Performed By: #### L DH3, ICA, HEMDF, BMP3M, LFT3, CRP2, MG3, FERR3, PHOS3, DDI2 ####[address] Abs Neutrophile Cnt 8.3 10*3/uL High 1.8-7.0 [facility] Comment on above: Performed By: #### L DH3, ICA, HEMDF, BMP3M, LFT3, CRP2, MG3, FERR3, PHOS3, DDI2 ####[address] Basophils/100 WBC (Bld) 0.1 % Normal 0.0-2.0 [facility] Comment on above: Performed By: #### L DH3, ICA, HEMDF, BMP3M, LFT3, CRP2, MG3, FERR3, PHOS3, DDI2 ####[address] Eosinophils (Bld) [#/Vol] 0.2 10*3/uL Normal 0.0-0.5 [facility] Comment on above: Performed By: #### L DH3, ICA, HEMDF, BMP3M, LFT3, CRP2, MG3, FERR3, PHOS3, DDI2 ####[address] Eosinophils/100 WBC (Bld) 1.6 % Normal 1.0-6.0 [facility] Comment on above: Performed By: #### L DH3, ICA, HEMDF, BMP3M, LFT3, CRP2, MG3, FERR3, PHOS3, DDI2 ####[address] Erythrocyte distribution width (RBC) [Ratio] 21.0 % High 11.5-14.5 [facility] Comment on above: Performed By: #### L DH3, ICA, HEMDF, BMP3M, LFT3, CRP2, MG3, FERR3, PHOS3, DDI2 ####[address] Granulocytes/100 WBC (Bld) 81.2 % High 40.0-80.0 [facility] Comment on above: Performed By: #### L DH3, ICA, HEMDF, BMP3M, LFT3, CRP2, MG3, FERR3, PHOS3, DDI2 ####[address] Hematocrit (Bld) [Volume fraction] 33.5 % Low 35.0-47.0 [facility] Comment on above: Performed By: #### L DH3, ICA, HEMDF, BMP3M, LFT3, CRP2, MG3, FERR3, PHOS3, DDI2 ####[address] Hemoglobin (Bld) [Mass/Vol] 10.5 g/dL Low 11.7-16.0 [facility] Comment on above: Performed By: #### L DH3, ICA, HEMDF, BMP3M, LFT3, CRP2, MG3, FERR3, PHOS3, DDI2 ####[address] Lymphocytes (Bld) [#/Vol] 0.8 10*3/uL Low 1.0-4.3 [facility] Comment on above: Performed By: #### L DH3, ICA, HEMDF, BMP3M, LFT3, CRP2, MG3, FERR3, PHOS3, DDI2 ####[address] Lymphocytes/100 WBC (Bld) 8.0 % Low 20.0-40.0 [facility] Comment on above: Performed By: #### L DH3, ICA, HEMDF, BMP3M, LFT3, CRP2, MG3, FERR3, PHOS3, DDI2 ####[address] MCH (RBC) [Entitic mass] 22.2 pg Low 26.0-34.0 [facility] Comment on above: Performed By: #### L DH3, ICA, HEMDF, BMP3M, LFT3, CRP2, MG3, FERR3, PHOS3, DDI2 ####[address] MCHC 31.4 % Low 32.0-36.0 [facility] Comment on above: Performed By: #### L DH3, ICA, HEMDF, BMP3M, LFT3, CRP2, MG3, FERR3, PHOS3, DDI2 ####[address] MCV (RBC) [Entitic vol] 70.7 fL Low 79.0-98.0 [facility] Comment on above: Performed By: #### L DH3, ICA, HEMDF, BMP3M, LFT3, CRP2, MG3, FERR3, PHOS3, DDI2 ####[address] [place], [place] Monocytes (Bld) [#/Vol] 0.9 10*3/uL High 0.0-0.8 [facility] Comment on above: Performed By: #### L DH3, ICA, HEMDF, BMP3M, LFT3, CRP2, MG3, FERR3, PHOS3, DDI2 ####[address] Monocytes/100 WBC (Bld) 9.1 % Normal 2.0-10.0 [facility] Comment on above: Performed By: #### L DH3, ICA, HEMDF, BMP3M, LFT3, CRP2, MG3, FERR3, PHOS3, DDI2 ####[address] Platelet mean volume (Bld) [Entitic vol] 8.6 fL Normal 7.4-10.4 [facility] Comment on above: Performed By: #### L DH3, ICA, HEMDF, BMP3M, LFT3, CRP2, MG3, FERR3, PHOS3, DDI2 ####[id number] [employer] [place] Platelets (Bld) [#/Vol] 227 10*3/uL Normal 140-440 [facility] Comment on above: Performed By: #### L DH3, ICA, HEMDF, BMP3M, LFT3, CRP2, MG3, FERR3, PHOS3, DDI2 ####[id number] [employer] [place] RBC (Bld) [#/Vol] 4.73 10*6/uL Normal 3.80-5.20 [facility] Comment on above: Performed By: #### L DH3, ICA, HEMDF, BMP3M, LFT3, CRP2, MG3, FERR3, PHOS3, DDI2 ####[facility] [employer] [id number] [employer] [place] WBC (Bld) [#/Vol] 10.2 10*3/uL Normal 3.6-10.7 [facility] Comment on above: Performed By: #### L DH3, ICA, HEMDF, BMP3M, LFT3, CRP2, MG3, FERR3, PHOS3, DDI2 ####[id number] [place] Hepatic Functionon 1 ALP [Catalytic activity/Vol] 80 U/L Normal 38-126 [facility] Comment on above: Performed By: #### L DH3, ICA, HEMDF, BMP3M, LFT3, CRP2, MG3, FERR3, PHOS3, DDI2 ####[id number] [employer] [place] ALT [Catalytic activity/Vol] 105 U/L High 0-34 [facility] Comment on above: Result Comment: The ALT test is performed by an updated assay method.Please note that the reference intervals have beenchanged and are now sex specific. Performed By: #### L DH3, ICA, HEMDF, BMP3M, LFT3, CRP2, MG3, FERR3, PHOS3, DDI2 ####[address] AST [Catalytic activity/Vol] 56 U/L High 15-46 [facility] Comment on above: Performed By: #### L DH3, ICA, HEMDF, BMP3M, LFT3, CRP2, MG3, FERR3, PHOS3, DDI2 ####[address] Bilirubin [Mass/Vol] 0.5 mg/dL Normal 0.2-1.3 [facility] Comment on above: Performed By: #### L DH3, ICA, HEMDF, BMP3M, LFT3, CRP2, MG3, FERR3, PHOS3, DDI2 ####[address] Bilirubin.indirect [Mass/Vol] 0.0 mg/dL Normal 0.0-0.3 [facility] Comment on above: Performed By: #### L DH3, ICA, HEMDF, BMP3M, LFT3, CRP2, MG3, FERR3, PHOS3, DDI2 ####[address] Protein [Mass/Vol] 6.3 g/dL Normal 6.3-8.2 [facility] Comment on above: Performed By: #### L DH3, ICA, HEMDF, BMP3M, LFT3, CRP2, MG3, FERR3, PHOS3, DDI2 ####[address] Albumin [Mass/Vol] 3.2 g/dL Low 3.5-5.0 [facility] Comment on above: Performed By: #### L DH3, ICA, HEMDF, BMP3M, LFT3, CRP2, MG3, FERR3, PHOS3, DDI2 ####[address] [place] [address] LDHon 06-09-2021 LDH 298 U/L High 120-246 [facility] Comment on above: Performed By: #### L DH3, ICA, HEMDF, BMP3M, LFT3, CRP2, MG3, FERR3, PHOS3, DDI2 ####[address] [place], [place] Magnesiumon 06-09-2021 Magnesium [Mass/Vol] 2.7 mg/dL High 1.6-2.3 [facility] Comment on above: Performed By: #### L DH3, ICA, HEMDF, BMP3M, LFT3, CRP2, MG3, FERR3, PHOS3, DDI2 ####[address] [place], [place] Phosphoruson 06-09-2021 Phosphate [Mass/Vol] 3.7 mg/dL Normal 2.5-4.5 [facility] Comment on above: Performed By: #### L DH3, ICA, HEMDF, BMP3M, LFT3, CRP2, MG3, FERR3, PHOS3, DDI2 ####[address] [place], [place] Add on test from HISon 06-08 Add on test from [facility] Accepted Normal [facility] Comment on above: Result Comment: Spec imen available & acceptable for analysis.Added to order- [id number] Performed By: #### A DDON ####[address] [place], [place] Arterial Blood Gaseson 06-08 CO2 [Moles/Vol] 33.3 mmol/L High 23.0-27.0 [facility] Comment on above: Performed By: #### A BG ####[address] [place], [place] HCO3 (Bld) [Moles/Vol] 31.7 mmol/L High 21.0-25.0 [facility] Comment on above: Performed By: #### A BG ####[address] [place], [place] Hemoglobin (Bld) [Mass/Vol] 11.2 g/dL Normal ScreenOnly [facility] Comment on above: Performed By: #### A BG ####[address] [place] Oxygen (Bld) [Partial pressure] 116.1 mm[Hg] High 80.0-100.0 [facility] Comment on above: Performed By: #### A BG ####[address] Oxygen saturation in Blood 97.5 % Normal 95.0-100.0 [facility] Comment on above: Performed By: #### A BG ####[address] pCO2 50.5 mm[Hg] High 35.0-45.0 [facility] Comment on above: Performed By: #### A BG ####[address] pH 7.416 Normal 7.350-7.450 [facility] Comment on above: Performed By: #### A BG ####[address] Std Base Excess 6.2 mmol/L High -3.0-3.0 [facility] Comment on above: Performed By: #### A BG ####[address] FIO2 45% Normal [facility] Comment on above: Performed By: #### A BG ####[address] CO2 [Moles/Vol] 32.7 mmol/L High 23.0-27.0 [facility] Comment on above: Performed By: #### A BG ####[address] HCO3 (Bld) [Moles/Vol] 31.3 mmol/L High 21.0-25.0 [facility] Comment on above: Performed By: #### A BG ####[address] [place], [place] Hemoglobin (Bld) [Mass/Vol] 11.2 g/dL Normal ScreenOnly [facility] Comment on above: Performed By: #### A BG ####[address] [place], [place] Oxygen (Bld) [Partial pressure] 92.6 mm[Hg] Normal 80.0-100.0 [facility] Comment on above: Performed By: #### A BG ####[address] [place], [place] Oxygen saturation in Blood 96.2 % Normal 95.0-100.0 [facility] Comment on above: Performed By: #### A BG ####[address] [place] pCO2 48.5 mm[Hg] High 35.0-45.0 [facility] Comment on above: Performed By: #### A BG ####[address] [place] pH 7.427 Normal 7.350-7.450 [facility] Comment on above: Performed By: #### A BG ####[address] [place] Std Base Excess 6.0 mmol/L High -3.0-3.0 [facility] Comment on above: Performed By: #### A BG ####[address] [place] FIO2 35% Normal [facility] Comment on above: Performed By: #### A BG ####[address] [place] CO2 [Moles/Vol] 30.4 mmol/L High 23.0-27.0 [facility] Comment on above: Performed By: #### A BG ####[address] [place], [place] HCO3 (Bld) [Moles/Vol] 29.0 mmol/L High 21.0-25.0 [facility] Comment on above: Performed By: #### A BG ####[address] [place], [place] Hemoglobin (Bld) [Mass/Vol] 13.3 g/dL Normal ScreenOnly [facility] Comment on above: Performed By: #### A BG ####[address] [place], [place] Oxygen (Bld) [Partial pressure] 64.4 mm[Hg] Low 80.0-100.0 [facility] Comment on above: Performed By: #### A BG ####[address] Oxygen saturation in Blood 90.9 % Low 95.0-100.0 [facility] Comment on above: Performed By: #### A BG ####[address] pCO2 47.6 mm[Hg] High 35.0-45.0 [facility] Comment on above: Performed By: #### A BG ####[address] pH 7.402 Normal 7.350-7.450 [facility] Comment on above: Performed By: #### A BG ####[address] Std Base Excess 3.4 mmol/L High -3.0-3.0 [facility] Comment on above: Performed By: #### A BG ####[address] FIO2 No data Normal [facility] Comment on above: Performed By: #### A BG ####[address] CO2 [Moles/Vol] 31.7 mmol/L High 23.0-27.0 [facility] Comment on above: Performed By: #### A BG ####[address] HCO3 (Bld) [Moles/Vol] 30.3 mmol/L High 21.0-25.0 [facility] Comment on above: Performed By: #### A BG ####[address] [place], [place] Hemoglobin (Bld) [Mass/Vol] 10.6 g/dL Normal ScreenOnly [facility] Comment on above: Performed By: #### A BG ####[address] [address] [place] Oxygen (Bld) [Partial pressure] 79.8 mm[Hg] Low 80.0-100.0 [facility] Comment on above: Performed By: #### A BG ####[address] [place], [place] Oxygen saturation in Blood 94.3 % Low 95.0-100.0 [facility] Comment on above: Performed By: #### A BG ####[address] pCO2 45.7 mm[Hg] High 35.0-45.0 [facility] Comment on above: Performed By: #### A BG ####[address] pH 7.439 Normal 7.350-7.450 [facility] Comment on above: Performed By: #### A BG ####[address] Std Base Excess 5.4 mmol/L High -3.0-3.0 [facility] Comment on above: Performed By: #### A BG ####[address] FIO2 No data Normal [facility] Comment on above: Performed By: #### A BG ####[address] Basic Metabolic Panelon 07-1 -2020 Calcium [Mass/Vol] 8.1 mg/dL Low 8.4-10.4 [facility] Comment on above: Performed By: #### L FT3, FERR3, HEMDF, DDI2, ICA, LDH3, BMP3M, MG3, CRP2, PHOS3 ####[address] Glucose [Mass/Vol] 123 mg/dL High 70-100 [facility] Comment on above: Performed By: #### L FT3, FERR3, HEMDF, DDI2, ICA, LDH3, BMP3M, MG3, CRP2, PHOS3 ####[address] [address] [place] Anion gap [Moles/Vol] 4 mmol/L Normal 3-13 [facility] Comment on above: Performed By: #### L FT3, FERR3, HEMDF, DDI2, ICA, LDH3, BMP3M, MG3, CRP2, PHOS3 ####[address] CO2 [Moles/Vol] 30 mmol/L Normal 22-30 [facility] Comment on above: Performed By: #### L FT3, FERR3, HEMDF, DDI2, ICA, LDH3, BMP3M, MG3, CRP2, PHOS3 ####[address] Urea nitrogen [Mass/Vol] 64 mg/dL High 7-20 [facility] Comment on above: Performed By: #### L FT3, FERR3, HEMDF, DDI2, ICA, LDH3, BMP3M, MG3, CRP2, PHOS3 ####[address] Creatinine [Mass/Vol] 1.04 mg/dL Normal 0.52-1.25 [facility] Comment on above: Performed By: #### L FT3, FERR3, HEMDF, DDI2, ICA, LDH3, BMP3M, MG3, CRP2, PHOS3 ####[address] GFR/1.73 sq M.predicted among blacks MDRD (S/P/Bld) [Vol rate/Area] 70.9 mL/min/{1.73_m2} Normal >60 [facility] Comment on above: Performed By: #### L FT3, FERR3, HEMDF, DDI2, ICA, LDH3, BMP3M, MG3, CRP2, PHOS3 ####[facility] [employer] [place] GFR/1.73 sq M.predicted among non-blacks MDRD (S/P/Bld) [Vol rate/Area] 61.2 mL/min/{1.73_m2} Normal >60 [facility] Comment on above: Result Comment: KDIG O guidelines provide the following GFR categories:Stage GFR(ml/min/1.73 m2) TermsG1 >=90 Normal or highG2 60-89 Mildly decreased*G3a 45-59 Mildly to moderately [id number] 30-44 Moderately to severely decreasedG4 15-29 Severely [...] DDI2, ICA, LDH3, BMP3M, MG3, CRP2, PHOS3 ####[email or web address] [place] Potassium [Moles/Vol] 4.5 mmol/L Normal 3.5-5.1 [facility] Comment on above: Performed By: #### L FT3, FERR3, HEMDF, DDI2, ICA, LDH3, BMP3M, MG3, CRP2, PHOS3 ####[facility] [employer] [id number] [employer] [place] Sodium [Moles/Vol] 142 mmol/L Normal 135-145 [facility] Comment on above: Performed By: #### L FT3, FERR3, HEMDF, DDI2, ICA, LDH3, BMP3M, MG3, CRP2, PHOS3 ####[address] [place] [address] Chloride [Moles/Vol] 107 mmol/L Normal 98-107 [facility] Comment on above: Performed By: #### L FT3, FERR3, HEMDF, DDI2, ICA, LDH3, BMP3M, MG3, CRP2, PHOS3 ####[address] [place] [address] C-Reactive Proteinon 021 CRP [Mass/Vol] 19.8 mg/L High 0.0-6.0 [facility] Comment on above: Result Comment: . Performed By: #### L FT3, FERR3, HEMDF, DDI2, ICA, LDH3, BMP3M, MG3, CRP2, PHOS3 ####[address] [address] CR Chest Portableon 06-08-20 CR Chest Portable Normal [facility] Calcium,Ionizedon 06-08-2021 Ionized Ca,Measured 4.30 mg/dL Normal 4.30-5.20 [facility] Comment on above: Performed By: #### L FT3, FERR3, HEMDF, DDI2, ICA, LDH3, BMP3M, MG3, CRP2, PHOS3 ####[address] [address] pH, Ionized Calcium 7.43 Normal 7.31-7.46 [facility] Comment on above: Performed By: #### L FT3, FERR3, HEMDF, DDI2, ICA, LDH3, BMP3M, MG3, CRP2, PHOS3 ####[address] [address] D-Dimer, Innovanceon 021 D-Dimer, [employer] 25.13 mg/L High <0.19-0.50 [facility] Comment on above: Result Comment: Inno carrington D-Dimer values of <0.50 mg/L FEU can be used incombination with a pre-test probability model (e.g. Well's)to exclude pulmonary embolism (PE) disease, as well as jodi in the diagnosis of deep vein thrombosis (DVT). Performed By: #### L FT3, FERR3, HEMDF, DDI2, ICA, LDH3, BMP3M, MG3, CRP2, PHOS3 ####[email or web address] [id number] [place] [address] Ferritinon 06-08-2021 Ferritin [Mass/Vol] 72 ng/mL Normal 8-252 [facility] Comment on above: Performed By: #### L FT3, FERR3, HEMDF, DDI2, ICA, LDH3, BMP3M, MG3, CRP2, PHOS3 ####[facility] [employer] [id number] [place] [address] Glucose,Bedsideon 06-08-2021 Glucose [Mass/Vol] 165 mg/dL High 70-100 [facility] Comment on above: Result Comment: Test performed by glucose meter. Results may be 10%-15% lowerthan serum/plasma values. (CLIA ID [id number]) Performed By: #### B GLU ####[email or web address] [address] [place] [address] Glucose [Mass/Vol] 155 mg/dL High 70-100 [facility] Comment on above: Result Comment: Test performed by glucose meter. Results may be 10%-15% lowerthan serum/plasma values. (CLIA ID [id number]) Performed By: #### B GLU ####[facility] [id number] [place] [address] Glucose [Mass/Vol] 122 mg/dL High 70-100 [facility] Comment on above: Result Comment: Test performed by glucose meter. Results may be 10%-15% lowerthan serum/plasma values. (CLIA ID [id number]) Performed By: #### B GLU ####[facility] [id number] [place] [address] Glucose [Mass/Vol] 130 mg/dL High 70-100 [facility] Comment on above: Result Comment: Test performed by glucose meter. Results may be 10%-15% lowerthan serum/plasma values. (CLIA ID [id number]) Performed By: #### B GLU ####[address] Hemogram w/ Autodiffon 06-08 Abs Baso Cnt 0.0 10*3/uL Normal 0.0-0.2 [facility] Comment on above: Performed By: #### L FT3, FERR3, HEMDF, DDI2, ICA, LDH3, BMP3M, MG3, CRP2, PHOS3 ####[address] Abs Neutrophile Cnt 5.7 10*3/uL Normal 1.8-7.0 [facility] Comment on above: Performed By: #### L FT3, FERR3, HEMDF, DDI2, ICA, LDH3, BMP3M, MG3, CRP2, PHOS3 ####[address] Basophils/100 WBC (Bld) 0.1 % Normal 0.0-2.0 [facility] Comment on above: Performed By: #### L FT3, FERR3, HEMDF, DDI2, ICA, LDH3, BMP3M, MG3, CRP2, PHOS3 ####[address] Eosinophils (Bld) [#/Vol] 0.0 10*3/uL Normal 0.0-0.5 [facility] Comment on above: Performed By: #### L FT3, FERR3, HEMDF, DDI2, ICA, LDH3, BMP3M, MG3, CRP2, PHOS3 ####[address] Eosinophils/100 WBC (Bld) 0.5 % Low 1.0-6.0 [facility] Comment on above: Performed By: #### L FT3, FERR3, HEMDF, DDI2, ICA, LDH3, BMP3M, MG3, CRP2, PHOS3 ####[address] Erythrocyte distribution width (RBC) [Ratio] 20.1 % High 11.5-14.5 [facility] Comment on above: Performed By: #### L FT3, FERR3, HEMDF, DDI2, ICA, LDH3, BMP3M, MG3, CRP2, PHOS3 ####[address] Granulocytes/100 WBC (Bld) 81.8 % High 40.0-80.0 [facility] Comment on above: Performed By: #### L FT3, FERR3, HEMDF, DDI2, ICA, LDH3, BMP3M, MG3, CRP2, PHOS3 ####[address] Hematocrit (Bld) [Volume fraction] 31.8 % Low 35.0-47.0 [facility] Comment on above: Performed By: #### L FT3, FERR3, HEMDF, DDI2, ICA, LDH3, BMP3M, MG3, CRP2, PHOS3 ####[address] Hemoglobin (Bld) [Mass/Vol] 10.0 g/dL Low 11.7-16.0 [facility] Comment on above: Performed By: #### L FT3, FERR3, HEMDF, DDI2, ICA, LDH3, BMP3M, MG3, CRP2, PHOS3 ####[address] Lymphocytes (Bld) [#/Vol] 0.7 10*3/uL Low 1.0-4.3 [facility] Comment on above: Performed By: #### L FT3, FERR3, HEMDF, DDI2, ICA, LDH3, BMP3M, MG3, CRP2, PHOS3 ####[address] Lymphocytes/100 WBC (Bld) 9.6 % Low 20.0-40.0 [facility] Comment on above: Performed By: #### L FT3, FERR3, HEMDF, DDI2, ICA, LDH3, BMP3M, MG3, CRP2, PHOS3 ####[address] MCH (RBC) [Entitic mass] 22.0 pg Low 26.0-34.0 [facility] Comment on above: Performed By: #### L FT3, FERR3, HEMDF, DDI2, ICA, LDH3, BMP3M, MG3, CRP2, PHOS3 ####[address] MCHC 31.5 % Low 32.0-36.0 [facility] Comment on above: Performed By: #### L FT3, FERR3, HEMDF, DDI2, ICA, LDH3, BMP3M, MG3, CRP2, PHOS3 ####[address] MCV (RBC) [Entitic vol] 69.9 fL Low 79.0-98.0 [facility] Comment on above: Performed By: #### L FT3, FERR3, HEMDF, DDI2, ICA, LDH3, BMP3M, MG3, CRP2, PHOS3 ####[address] Monocytes (Bld) [#/Vol] 0.6 10*3/uL Normal 0.0-0.8 [facility] Comment on above: Performed By: #### L FT3, FERR3, HEMDF, DDI2, ICA, LDH3, BMP3M, MG3, CRP2, PHOS3 ####[address] Monocytes/100 WBC (Bld) 8.0 % Normal 2.0-10.0 [facility] Comment on above: Performed By: #### L FT3, FERR3, HEMDF, DDI2, ICA, LDH3, BMP3M, MG3, CRP2, PHOS3 ####[address] Platelet mean volume (Bld) [Entitic vol] 8.2 fL Normal 7.4-10.4 [facility] Comment on above: Performed By: #### L FT3, FERR3, HEMDF, DDI2, ICA, LDH3, BMP3M, MG3, CRP2, PHOS3 ####[address] Platelets (Bld) [#/Vol] 213 10*3/uL Normal 140-440 [facility] Comment on above: Performed By: #### L FT3, FERR3, HEMDF, DDI2, ICA, LDH3, BMP3M, MG3, CRP2, PHOS3 ####[address] RBC (Bld) [#/Vol] 4.55 10*6/uL Normal 3.80-5.20 [facility] Comment on above: Performed By: #### L FT3, FERR3, HEMDF, DDI2, ICA, LDH3, BMP3M, MG3, CRP2, PHOS3 ####[address] WBC (Bld) [#/Vol] 7.0 10*3/uL Normal 3.6-10.7 [facility] Comment on above: Performed By: #### L FT3, FERR3, HEMDF, DDI2, ICA, LDH3, BMP3M, MG3, CRP2, PHOS3 ####[address] Hepatic Functionon 1 ALT [Catalytic activity/Vol] 126 U/L High 0-34 [facility] Comment on above: Result Comment: The ALT test is performed by an updated assay method.Please note that the reference intervals have beenchanged and are now sex specific. Performed By: #### L FT3, FERR3, HEMDF, DDI2, ICA, LDH3, BMP3M, MG3, CRP2, PHOS3 ####[address] [place] ALP [Catalytic activity/Vol] 75 U/L Normal 38-126 [facility] Comment on above: Performed By: #### L FT3, FERR3, HEMDF, DDI2, ICA, LDH3, BMP3M, MG3, CRP2, PHOS3 ####[address] [place] AST [Catalytic activity/Vol] 86 U/L High 15-46 [facility] Comment on above: Performed By: #### L FT3, FERR3, HEMDF, DDI2, ICA, LDH3, BMP3M, MG3, CRP2, PHOS3 ####[address] Bilirubin [Mass/Vol] 0.3 mg/dL Normal 0.2-1.3 [facility] Comment on above: Performed By: #### L FT3, FERR3, HEMDF, DDI2, ICA, LDH3, BMP3M, MG3, CRP2, PHOS3 ####[address] [address] [place], [place] Bilirubin.indirect [Mass/Vol] 0.0 mg/dL Normal 0.0-0.3 [facility] Comment on above: Performed By: #### L FT3, FERR3, HEMDF, DDI2, ICA, LDH3, BMP3M, MG3, CRP2, PHOS3 ####[address] [address] [place], [place] Protein [Mass/Vol] 5.9 g/dL Low 6.3-8.2 [facility] Comment on above: Performed By: #### L FT3, FERR3, HEMDF, DDI2, ICA, LDH3, BMP3M, MG3, CRP2, PHOS3 ####[id number] [place], [place] Albumin [Mass/Vol] 2.9 g/dL Low 3.5-5.0 [facility] Comment on above: Performed By: #### L FT3, FERR3, HEMDF, DDI2, ICA, LDH3, BMP3M, MG3, CRP2, PHOS3 ####[address] LDHon 06-08-2021 LDH 291 U/L High 120-246 [facility] Comment on above: Performed By: #### L FT3, FERR3, HEMDF, DDI2, ICA, LDH3, BMP3M, MG3, CRP2, PHOS3 ####[address] Magnesiumon 06-08-2021 Magnesium [Mass/Vol] 2.4 mg/dL High 1.6-2.3 [facility] Comment on above: Performed By: #### L FT3, FERR3, HEMDF, DDI2, ICA, LDH3, BMP3M, MG3, CRP2, PHOS3 ####[address] Phosphoruson 06-08-2021 Phosphate [Mass/Vol] 4.3 mg/dL Normal 2.5-4.5 [facility] Comment on above: Performed By: #### L FT3, FERR3, HEMDF, DDI2, ICA, LDH3, BMP3M, MG3, CRP2, PHOS3 ####[address] Procalcitoninon 06-08-2021 Procalcitonin 0.06 ng/mL Normal 0.00-0.09 [facility] Comment on above: Performed By: #### P OLESYA ####[address] Interpretation See Below Normal [facility] Comment on above: Result Comment: PCT <0.50 = Low risk of severe sepsis and/or septic shock.PCT >2.00 = High risk of severe sepsis and/or septic shock. Performed By: #### P OLESYA ####[address] Procalcitonin 0.07 ng/mL Normal 0.00-0.09 [facility] Comment on above: Performed By: #### D DI2, MG3, HEMDF, PHOS3, ICA, BMP3M, CRP2, LDH3, LFT3, FERR3, PCAL ####[address] [place], [place] Interpretation See Below Normal [facility] Comment on above: Result Comment: PCT <0.50 = Low risk of severe sepsis and/or septic shock.PCT >2.00 = High risk of severe sepsis and/or septic shock. Performed By: #### D DI2, MG3, HEMDF, PHOS3, ICA, BMP3M, CRP2, LDH3, LFT3, FERR3, PCAL ####[address] STAIN GRAMon 06-08-2021 STAIN GRAM STAIN GRAM --> Statu s: F Many polymorphonuclear cells/lpf. No epithelial cells/lpf. Few yeast. No epithelial cells/lpf. Few yeast. Normal [facility] Comment on above: Performed By: #### C S/RE, S/GRM ####[address] [address] [place], [place] VL Venous Duplex US Lower Ex t Bilateralon 06-08-2021 VL Venous Duplex US Lower Ext Bilateral Normal [facility] Arterial Blood Gaseson 06-07 CO2 [Moles/Vol] 32.6 mmol/L High 23.0-27.0 [facility] Comment on above: Performed By: #### A BG ####[address] [place], [place] HCO3 (Bld) [Moles/Vol] 31.1 mmol/L High 21.0-25.0 [facility] Comment on above: Performed By: #### A BG ####[address] [place], [place] Hemoglobin (Bld) [Mass/Vol] 11.1 g/dL Normal ScreenOnly [facility] Comment on above: Performed By: #### A BG ####[address] Oxygen (Bld) [Partial pressure] 72.8 mm[Hg] Low 80.0-100.0 [facility] Comment on above: Performed By: #### A BG ####[address] [place], [place] Oxygen saturation in Blood 93.2 % Low 95.0-100.0 [facility] Comment on above: Performed By: #### A BG ####[address] [place], [place] pCO2 47.1 mm[Hg] High 35.0-45.0 [facility] Comment on above: Performed By: #### A BG ####[address] [place], [place] pH 7.438 Normal 7.350-7.450 [facility] Comment on above: Performed By: #### A BG ####[address] [address] [place], [place] Std Base Excess 6.1 mmol/L High -3.0-3.0 [facility] Comment on above: Performed By: #### A BG ####[address] [place], [place] FIO2 No data Normal [facility] Comment on above: Performed By: #### A BG ####[address] [address] [place], [place] CO2 [Moles/Vol] 32.1 mmol/L High 23.0-27.0 [facility] Comment on above: Performed By: #### A BG ####[address] [place], [place] HCO3 (Bld) [Moles/Vol] 30.6 mmol/L High 21.0-25.0 [facility] Comment on above: Performed By: #### A BG ####[address] [place], [place] Hemoglobin (Bld) [Mass/Vol] 11.2 g/dL Normal ScreenOnly [facility] Comment on above: Performed By: #### A BG ####[address] [place], [place] Oxygen (Bld) [Partial pressure] 103.3 mm[Hg] High 80.0-100.0 [facility] Comment on above: Performed By: #### A BG ####[address] [address] [address] [place], [place] Oxygen saturation in Blood 96.9 % Normal 95.0-100.0 [facility] Comment on above: Performed By: #### A BG ####[address] [place], [place] pCO2 49.2 mm[Hg] High 35.0-45.0 [facility] Comment on above: Performed By: #### A BG ####[address] pH 7.411 Normal 7.350-7.450 [facility] Comment on above: Performed By: #### A BG ####[address] Std Base Excess 5.1 mmol/L High -3.0-3.0 [facility] Comment on above: Performed By: #### A BG ####[address] FIO2 35% Normal [facility] Comment on above: Performed By: #### A BG ####[address] [place] CO2 [Moles/Vol] 30.4 mmol/L High 23.0-27.0 [facility] Comment on above: Performed By: #### A BG ####[address] [place] HCO3 (Bld) [Moles/Vol] 28.9 mmol/L High 21.0-25.0 [facility] Comment on above: Performed By: #### A BG ####[address] Hemoglobin (Bld) [Mass/Vol] 11.0 g/dL Normal ScreenOnly [facility] Comment on above: Performed By: #### A BG ####[address] [place], [place] Oxygen (Bld) [Partial pressure] 98.0 mm[Hg] Normal 80.0-100.0 [facility] Comment on above: Performed By: #### A BG ####[address] [place], [place] Oxygen saturation in Blood 97.0 % Normal 95.0-100.0 [facility] Comment on above: Performed By: #### A BG ####[address] [place], [place] pCO2 51.3 mm[Hg] High 35.0-45.0 [facility] Comment on above: Performed By: #### A BG ####[address] pH 7.368 Normal 7.350-7.450 [facility] Comment on above: Performed By: #### A BG ####[address] [place], [place] Std Base Excess 2.8 mmol/L Normal -3.0-3.0 [facility] Comment on above: Performed By: #### A BG ####[address] FIO2 No data Normal [facility] Comment on above: Performed By: #### A BG ####[address] [place] CO2 [Moles/Vol] 30.2 mmol/L High 23.0-27.0 [facility] Comment on above: Performed By: #### A BG ####[address] [place], [place] HCO3 (Bld) [Moles/Vol] 28.7 mmol/L High 21.0-25.0 [facility] Comment on above: Performed By: #### A BG ####[address] [place], [place] Hemoglobin (Bld) [Mass/Vol] 10.8 g/dL Normal ScreenOnly [facility] Comment on above: Performed By: #### A BG ####[address] [place], [place] Oxygen (Bld) [Partial pressure] 112.4 mm[Hg] High 80.0-100.0 [facility] Comment on above: Performed By: #### A BG ####[address] Oxygen saturation in Blood 97.5 % Normal 95.0-100.0 [facility] Comment on above: Performed By: #### A BG ####[address] [place], [place] pCO2 47.0 mm[Hg] High 35.0-45.0 [facility] Comment on above: Performed By: #### A BG ####[address] pH 7.404 Normal 7.350-7.450 [facility] Comment on above: Performed By: #### A BG ####[address] Std Base Excess 3.4 mmol/L High -3.0-3.0 [facility] Comment on above: Performed By: #### A BG ####[address] [place], [place] FIO2 No data Normal [facility] Comment on above: Performed By: #### A BG ####[address] Basic Metabolic Panelon 07-0 Calcium [Mass/Vol] 8.2 mg/dL Low 8.4-10.4 [facility] Comment on above: Performed By: #### D DI2, MG3, HEMDF, PHOS3, ICA, BMP3M, CRP2, LDH3, LFT3, FERR3, PCAL ####[address] [place], [place] Glucose [Mass/Vol] 109 mg/dL High 70-100 [facility] Comment on above: Performed By: #### D DI2, MG3, HEMDF, PHOS3, ICA, BMP3M, CRP2, LDH3, LFT3, FERR3, PCAL ####[address] [place], [place] Urea nitrogen [Mass/Vol] 53 mg/dL High 7-20 [facility] Comment on above: Performed By: #### D DI2, MG3, HEMDF, PHOS3, ICA, BMP3M, CRP2, LDH3, LFT3, FERR3, PCAL ####[address] [place], [place] Anion gap [Moles/Vol] 5 mmol/L Normal 3-13 [facility] Comment on above: Performed By: #### D DI2, MG3, HEMDF, PHOS3, ICA, BMP3M, CRP2, LDH3, LFT3, FERR3, PCAL ####[address] CO2 [Moles/Vol] 28 mmol/L Normal 22-30 [facility] Comment on above: Performed By: #### D DI2, MG3, HEMDF, PHOS3, ICA, BMP3M, CRP2, LDH3, LFT3, FERR3, PCAL ####[address] [place], [place] Creatinine [Mass/Vol] 0.95 mg/dL Normal 0.52-1.25 [facility] Comment on above: Performed By: #### D DI2, MG3, HEMDF, PHOS3, ICA, BMP3M, CRP2, LDH3, LFT3, FERR3, PCAL ####[address] [place], [place] GFR/1.73 sq M.predicted among blacks MDRD (S/P/Bld) [Vol rate/Area] 79.1 mL/min/{1.73_m2} Normal >60 [facility] Comment on above: Performed By: #### D DI2, MG3, HEMDF, PHOS3, ICA, BMP3M, CRP2, LDH3, LFT3, FERR3, PCAL ####[address] [place], [place] GFR/1.73 sq M.predicted among non-blacks MDRD (S/P/Bld) [Vol rate/Area] 68.2 mL/min/{1.73_m2} Normal >60 [facility] Comment on above: Result Comment: KDIG O guidelines provide the following GFR categories:Stage GFR(ml/min/1.73 m2) TermsG1 >=90 Normal or highG2 60-89 Mildly decreased*G3a 45-59 Mildly to moderately [id number] 30-44 Moderately to severely decreasedG4 15-29 Severely [...] ICA, BMP3M, CRP2, LDH3, LFT3, FERR3, PCAL ####[address] [place], [place] Potassium [Moles/Vol] 4.4 mmol/L Normal 3.5-5.1 [facility] Comment on above: Performed By: #### D DI2, MG3, HEMDF, PHOS3, ICA, BMP3M, CRP2, LDH3, LFT3, FERR3, PCAL ####[address] [place], [place] Chloride [Moles/Vol] 107 mmol/L Normal 98-107 [facility] Comment on above: Performed By: #### D DI2, MG3, HEMDF, PHOS3, ICA, BMP3M, CRP2, LDH3, LFT3, FERR3, PCAL ####[address] [place], [place] Sodium [Moles/Vol] 140 mmol/L Normal 135-145 [facility] Comment on above: Performed By: #### D DI2, MG3, HEMDF, PHOS3, ICA, BMP3M, CRP2, LDH3, LFT3, FERR3, PCAL ####[address] [place], [place] C-Reactive Proteinon 021 CRP [Mass/Vol] 29.6 mg/L High 0.0-6.0 [facility] Comment on above: Result Comment: . Performed By: #### D DI2, MG3, HEMDF, PHOS3, ICA, BMP3M, CRP2, LDH3, LFT3, FERR3, PCAL ####[address] [place], [place] CR Chest Portableon 06-07-20 CR Chest Portable Normal [facility] Calcium,Ionizedon 06-07-2021 Ionized Ca,Measured 4.40 mg/dL Normal 4.30-5.20 [facility] Comment on above: Performed By: #### D DI2, MG3, HEMDF, PHOS3, ICA, BMP3M, CRP2, LDH3, LFT3, FERR3, PCAL ####[address] [place], [place] pH, Ionized Calcium 7.39 Normal 7.31-7.46 [facility] Comment on above: Performed By: #### D DI2, MG3, HEMDF, PHOS3, ICA, BMP3M, CRP2, LDH3, LFT3, FERR3, PCAL ####[address] [place], [place] D-Dimer, Innovanceon 021 D-Dimer, Innovance 26.90 mg/L High <0.19-0.50 [facility] Comment on above: Result Comment: Inno carrington D-Dimer values of <0.50 mg/L FEU can be used incombination with a pre-test probability model (e.g. Well's)to exclude pulmonary embolism (PE) disease, as well as jodi in the diagnosis of deep vein thrombosis (DVT). Performed By: #### D DI2, MG3, HEMDF, PHOS3, ICA, BMP3M, CRP2, LDH3, LFT3, FERR3, PCAL ####[facility] [employer] [id number] [place] [address] Ferritinon 06-07-2021 Ferritin [Mass/Vol] 104 ng/mL Normal 8-252 [facility] Comment on above: Performed By: #### D DI2, MG3, HEMDF, PHOS3, ICA, BMP3M, CRP2, LDH3, LFT3, FERR3, PCAL ####[facility] [employer] [id number] [place] [address] Glucose,Bedsideon 06-07-2021 Glucose [Mass/Vol] 156 mg/dL High 70-100 [facility] Comment on above: Result Comment: Test performed by glucose meter. Results may be 10%-15% lowerthan serum/plasma values. (CLIA ID [id number]) Performed By: #### B GLU ####[facility] [employer] [id number] [place] [address] Glucose [Mass/Vol] 151 mg/dL High 70-100 [facility] Comment on above: Result Comment: Test performed by glucose meter. Results may be 10%-15% lowerthan serum/plasma values. (CLIA ID [id number]) Performed By: #### B GLU ####[facility] [employer] [id number] [place] [address] Glucose [Mass/Vol] 100 mg/dL Normal 70-100 [facility] Comment on above: Result Comment: Test performed by glucose meter. Results may be 10%-15% lowerthan serum/plasma values. (CLIA ID [id number]) Performed By: #### B GLU ####[facility] [employer] [id number] [place] [address] Glucose [Mass/Vol] 126 mg/dL High 70-100 [facility] Comment on above: Result Comment: Test performed by glucose meter. Results may be 10%-15% lowerthan serum/plasma values. (CLIA ID [id number]) Performed By: #### B GLU ####[address] Hemogram w/ Autodiffon 06-07 Abs Baso Cnt 0.0 10*3/uL Normal 0.0-0.2 [facility] Comment on above: Performed By: #### D DI2, MG3, HEMDF, PHOS3, ICA, BMP3M, CRP2, LDH3, LFT3, FERR3, PCAL ####[address] Abs Neutrophile Cnt 3.2 10*3/uL Normal 1.8-7.0 [facility] Comment on above: Performed By: #### D DI2, MG3, HEMDF, PHOS3, ICA, BMP3M, CRP2, LDH3, LFT3, FERR3, PCAL ####[address] Basophils/100 WBC (Bld) 0.5 % Normal 0.0-2.0 [facility] Comment on above: Performed By: #### D DI2, MG3, HEMDF, PHOS3, ICA, BMP3M, CRP2, LDH3, LFT3, FERR3, PCAL ####[address] Eosinophils (Bld) [#/Vol] 0.0 10*3/uL Normal 0.0-0.5 [facility] Comment on above: Performed By: #### D DI2, MG3, HEMDF, PHOS3, ICA, BMP3M, CRP2, LDH3, LFT3, FERR3, PCAL ####[address] Eosinophils/100 WBC (Bld) 0.5 % Low 1.0-6.0 [facility] Comment on above: Performed By: #### D DI2, MG3, HEMDF, PHOS3, ICA, BMP3M, CRP2, LDH3, LFT3, FERR3, PCAL ####[address] Erythrocyte distribution width (RBC) [Ratio] 21.1 % High 11.5-14.5 [facility] Comment on above: Performed By: #### D DI2, MG3, HEMDF, PHOS3, ICA, BMP3M, CRP2, LDH3, LFT3, FERR3, PCAL ####[address] Granulocytes/100 WBC (Bld) 72.5 % Normal 40.0-80.0 [facility] Comment on above: Performed By: #### D DI2, MG3, HEMDF, PHOS3, ICA, BMP3M, CRP2, LDH3, LFT3, FERR3, PCAL ####[address] Hematocrit (Bld) [Volume fraction] 33.3 % Low 35.0-47.0 [facility] Comment on above: Performed By: #### D DI2, MG3, HEMDF, PHOS3, ICA, BMP3M, CRP2, LDH3, LFT3, FERR3, PCAL ####[address] Hemoglobin (Bld) [Mass/Vol] 10.6 g/dL Low 11.7-16.0 [facility] Comment on above: Performed By: #### D DI2, MG3, HEMDF, PHOS3, ICA, BMP3M, CRP2, LDH3, LFT3, FERR3, PCAL ####[address] Lymphocytes (Bld) [#/Vol] 0.7 10*3/uL Low 1.0-4.3 [facility] Comment on above: Performed By: #### D DI2, MG3, HEMDF, PHOS3, ICA, BMP3M, CRP2, LDH3, LFT3, FERR3, PCAL ####[address] [place] Lymphocytes/100 WBC (Bld) 16.0 % Low 20.0-40.0 [facility] Comment on above: Performed By: #### D DI2, MG3, HEMDF, PHOS3, ICA, BMP3M, CRP2, LDH3, LFT3, FERR3, PCAL ####[address] [place], [place] MCH (RBC) [Entitic mass] 22.6 pg Low 26.0-34.0 [facility] Comment on above: Performed By: #### D DI2, MG3, HEMDF, PHOS3, ICA, BMP3M, CRP2, LDH3, LFT3, FERR3, PCAL ####[address] [place], [place] MCHC 31.7 % Low 32.0-36.0 [facility] Comment on above: Performed By: #### D DI2, MG3, HEMDF, PHOS3, ICA, BMP3M, CRP2, LDH3, LFT3, FERR3, PCAL ####[address] MCV (RBC) [Entitic vol] 71.3 fL Low 79.0-98.0 [facility] Comment on above: Performed By: #### D DI2, MG3, HEMDF, PHOS3, ICA, BMP3M, CRP2, LDH3, LFT3, FERR3, PCAL ####[address] Monocytes (Bld) [#/Vol] 0.5 10*3/uL Normal 0.0-0.8 [facility] Comment on above: Performed By: #### D DI2, MG3, HEMDF, PHOS3, ICA, BMP3M, CRP2, LDH3, LFT3, FERR3, PCAL ####[address] Monocytes/100 WBC (Bld) 10.5 % High 2.0-10.0 [facility] Comment on above: Performed By: #### D DI2, MG3, HEMDF, PHOS3, ICA, BMP3M, CRP2, LDH3, LFT3, FERR3, PCAL ####[address] [place], [place] Platelet mean volume (Bld) [Entitic vol] 8.3 fL Normal 7.4-10.4 [facility] Comment on above: Performed By: #### D DI2, MG3, HEMDF, PHOS3, ICA, BMP3M, CRP2, LDH3, LFT3, FERR3, PCAL ####[address] [place], [place] Platelets (Bld) [#/Vol] 194 10*3/uL Normal 140-440 [facility] Comment on above: Performed By: #### D DI2, MG3, HEMDF, PHOS3, ICA, BMP3M, CRP2, LDH3, LFT3, FERR3, PCAL ####[address] RBC (Bld) [#/Vol] 4.67 10*6/uL Normal 3.80-5.20 [facility] Comment on above: Performed By: #### D DI2, MG3, HEMDF, PHOS3, ICA, BMP3M, CRP2, LDH3, LFT3, FERR3, PCAL ####[address] WBC (Bld) [#/Vol] 4.5 10*3/uL Normal 3.6-10.7 [facility] Comment on above: Performed By: #### D DI2, MG3, HEMDF, PHOS3, ICA, BMP3M, CRP2, LDH3, LFT3, FERR3, PCAL ####[address] [place], [place] Hepatic Functionon 1 ALP [Catalytic activity/Vol] 82 U/L Normal 38-126 [facility] Comment on above: Performed By: #### D DI2, MG3, HEMDF, PHOS3, ICA, BMP3M, CRP2, LDH3, LFT3, FERR3, PCAL ####[address] [place], [place] ALT [Catalytic activity/Vol] 138 U/L High 0-34 [facility] Comment on above: Result Comment: The ALT test is performed by an updated assay method.Please note that the reference intervals have beenchanged and are now sex specific. Performed By: #### D DI2, MG3, HEMDF, PHOS3, ICA, BMP3M, CRP2, LDH3, LFT3, FERR3, PCAL ####[address] AST [Catalytic activity/Vol] 119 U/L High 15-46 [facility] Comment on above: Performed By: #### D DI2, MG3, HEMDF, PHOS3, ICA, BMP3M, CRP2, LDH3, LFT3, FERR3, PCAL ####[address] Protein [Mass/Vol] 6.0 g/dL Low 6.3-8.2 [facility] Comment on above: Performed By: #### D DI2, MG3, HEMDF, PHOS3, ICA, BMP3M, CRP2, LDH3, LFT3, FERR3, PCAL ####[address] Bilirubin [Mass/Vol] 0.3 mg/dL Normal 0.2-1.3 [facility] Comment on above: Performed By: #### D DI2, MG3, HEMDF, PHOS3, ICA, BMP3M, CRP2, LDH3, LFT3, FERR3, PCAL ####[address] [place], [place] Bilirubin.indirect [Mass/Vol] 0.0 mg/dL Normal 0.0-0.3 [facility] Comment on above: Performed By: #### D DI2, MG3, HEMDF, PHOS3, ICA, BMP3M, CRP2, LDH3, LFT3, FERR3, PCAL ####[address] [place] Albumin [Mass/Vol] 2.9 g/dL Low 3.5-5.0 [facility] Comment on above: Performed By: #### D DI2, MG3, HEMDF, PHOS3, ICA, BMP3M, CRP2, LDH3, LFT3, FERR3, PCAL ####[address] [place], [place] Interleukin 6on 06-07-2021 Interleukin 6 54.6 pg/mL High <=2.0 [facility] Comment on above: Result Comment: INTE RPRETIVE INFORMATION: CytokinesResults are used to understand the pathophysiology of immune,infectious, or inflammatory disorders, or may be used for researchpurposes.This test was developed and its performance characteristicsdetermined by [employer]. It has not been cleared orapproved by the [place] Food and Drug Administration. This test wasperformed in a CLIA certified laboratory and is intended forclinical purposes.Performed By: [employer] [place] [id number] Director: Merari Garcia MD Performed By: #### H BSAG, LFT3, HEMDF, HIV4, TROPN, MG3, BMP3M, DDI2, PHOS3, CRP2, HEPC, ICA, FERR3, LDH3 ####[address] #### IL6O, HBCAO ####The performing lab is in the report. LDHon 06-07-2021 LDH 370 U/L High 120-246 [facility] Comment on above: Performed By: #### D DI2, MG3, HEMDF, PHOS3, ICA, BMP3M, CRP2, LDH3, LFT3, FERR3, PCAL ####[address] [place], [place] Magnesiumon 06-07-2021 Magnesium [Mass/Vol] 2.5 mg/dL High 1.6-2.3 [facility] Comment on above: Performed By: #### D DI2, MG3, HEMDF, PHOS3, ICA, BMP3M, CRP2, LDH3, LFT3, FERR3, PCAL ####[address] [place] [address] Phosphoruson 06-07-2021 Phosphate [Mass/Vol] 4.0 mg/dL Normal 2.5-4.5 [facility] Comment on above: Performed By: #### D DI2, MG3, HEMDF, PHOS3, ICA, BMP3M, CRP2, LDH3, LFT3, FERR3, PCAL ####[address] [place] [address] Troponin Ion 06-07-2021 Troponin I.cardiac [Mass/Vol] ng/mL Normal 0.000-0.034 [facility] Comment on above: Result Comment: . Performed By: #### T ROPN ####[address] [address] Arterial Blood Gaseson 06-06 CO2 [Moles/Vol] 29.3 mmol/L High 23.0-27.0 [facility] Comment on above: Performed By: #### A BG ####[address] [address] HCO3 (Bld) [Moles/Vol] 27.9 mmol/L High 21.0-25.0 [facility] Comment on above: Performed By: #### A BG ####[address] [place] [address] Hemoglobin (Bld) [Mass/Vol] 10.7 g/dL Normal ScreenOnly [facility] Comment on above: Performed By: #### A BG ####[address] [address] Oxygen (Bld) [Partial pressure] 86.6 mm[Hg] Normal 80.0-100.0 [facility] Comment on above: Performed By: #### A BG ####[address] [address] Oxygen saturation in Blood 96.2 % Normal 95.0-100.0 [facility] Comment on above: Performed By: #### A BG ####[address] [place], [place] pCO2 46.9 mm[Hg] High 35.0-45.0 [facility] Comment on above: Performed By: #### A BG ####[address] [place], [place] pH 7.392 Normal 7.350-7.450 [facility] Comment on above: Performed By: #### A BG ####[address] [place], [place] Std Base Excess 2.5 mmol/L Normal -3.0-3.0 [facility] Comment on above: Performed By: #### A BG ####[address] [place], [place] FIO2 .50 Normal [facility] Comment on above: Performed By: #### A BG ####[address] [place], [place] CO2 [Moles/Vol] 28.2 mmol/L High 23.0-27.0 [facility] Comment on above: Performed By: #### A BG ####[address] [place], [place] HCO3 (Bld) [Moles/Vol] 26.8 mmol/L High 21.0-25.0 [facility] Comment on above: Performed By: #### A BG ####[address] [place], [place] Hemoglobin (Bld) [Mass/Vol] 11.1 g/dL Normal ScreenOnly [facility] Comment on above: Performed By: #### A BG ####[address] [place], [place] Oxygen (Bld) [Partial pressure] 68.7 mm[Hg] Low 80.0-100.0 [facility] Comment on above: Performed By: #### A BG ####[address] [place], [place] Oxygen saturation in Blood 92.0 % Low 95.0-100.0 [facility] Comment on above: Performed By: #### A BG ####[address] [place], [place] pCO2 46.7 mm[Hg] High 35.0-45.0 [facility] Comment on above: Performed By: #### A BG ####[address] [place], [place] pH 7.376 Normal 7.350-7.450 [facility] Comment on above: Performed By: #### A BG ####[address] [place], [place] Std Base Excess 1.2 mmol/L Normal -3.0-3.0 [facility] Comment on above: Performed By: #### A BG ####[address] [address] [place] FIO2 .50 Normal [facility] Comment on above: Performed By: #### A BG ####[address] [place] CO2 [Moles/Vol] 30.7 mmol/L High 23.0-27.0 [facility] Comment on above: Performed By: #### A BG ####[address] [place], [place] HCO3 (Bld) [Moles/Vol] 29.2 mmol/L High 21.0-25.0 [facility] Comment on above: Performed By: #### A BG ####[address] [place], [place] Hemoglobin (Bld) [Mass/Vol] 11.5 g/dL Normal ScreenOnly [facility] Comment on above: Performed By: #### A BG ####[address] [place], [place] Oxygen (Bld) [Partial pressure] 130.0 mm[Hg] High 80.0-100.0 [facility] Comment on above: Performed By: #### A BG ####[address] [address] [place], [place] Oxygen saturation in Blood 98.0 % Normal 95.0-100.0 [facility] Comment on above: Performed By: #### A BG ####[address] [place], [place] pCO2 49.6 mm[Hg] High 35.0-45.0 [facility] Comment on above: Performed By: #### A BG ####[address] [place], [place] pH 7.388 Normal 7.350-7.450 [facility] Comment on above: Performed By: #### A BG ####[address] [place], [place] Std Base Excess 3.5 mmol/L High -3.0-3.0 [facility] Comment on above: Performed By: #### A BG ####[address] [place], [place] FIO2 60% Normal [facility] Comment on above: Performed By: #### A BG ####[address] Basic Metabolic Panelon 07-0 Calcium [Mass/Vol] 8.2 mg/dL Low 8.4-10.4 [facility] Health Comment on above: Performed By: #### M G3, TROPN, BMP3M, ICA, LDH3, HEMDF, CRP2, DDI2, FERR3, LFT3, PHOS3 ####[address] [place], [place] Glucose [Mass/Vol] 130 mg/dL High 70-100 [facility] Comment on above: Performed By: #### M G3, TROPN, BMP3M, ICA, LDH3, HEMDF, CRP2, DDI2, FERR3, LFT3, PHOS3 ####[address] [place], [place] Anion gap [Moles/Vol] 8 mmol/L Normal 3-13 [facility] Comment on above: Performed By: #### M G3, TROPN, BMP3M, ICA, LDH3, HEMDF, CRP2, DDI2, FERR3, LFT3, PHOS3 ####[address] CO2 [Moles/Vol] 22 mmol/L Normal 22-30 [facility] Comment on above: Performed By: #### M G3, TROPN, BMP3M, ICA, LDH3, HEMDF, CRP2, DDI2, FERR3, LFT3, PHOS3 ####[address] Creatinine [Mass/Vol] 0.99 mg/dL Normal 0.52-1.25 [facility] Comment on above: Performed By: #### M G3, TROPN, BMP3M, ICA, LDH3, HEMDF, CRP2, DDI2, FERR3, LFT3, PHOS3 ####[address] GFR/1.73 sq M.predicted among blacks MDRD (S/P/Bld) [Vol rate/Area] 75.2 mL/min/{1.73_m2} Normal >60 [facility] Comment on above: Performed By: #### M G3, TROPN, BMP3M, ICA, LDH3, HEMDF, CRP2, DDI2, FERR3, LFT3, PHOS3 ####[address] GFR/1.73 sq M.predicted among non-blacks MDRD (S/P/Bld) [Vol rate/Area] 64.9 mL/min/{1.73_m2} Normal >60 [facility] Comment on above: Result Comment: KDIG O guidelines provide the following GFR categories:Stage GFR(ml/min/1.73 m2) TermsG1 >=90 Normal or highG2 60-89 Mildly decreased*G3a 45-59 Mildly to moderately [id number] 30-44 Moderately to severely decreasedG4 15-29 Severely [...] LDH3, HEMDF, CRP2, DDI2, FERR3, LFT3, PHOS3 ####[address] [place] [address] Urea nitrogen [Mass/Vol] 40 mg/dL High 7-20 [facility] Comment on above: Performed By: #### M G3, TROPN, BMP3M, ICA, LDH3, HEMDF, CRP2, DDI2, FERR3, LFT3, PHOS3 ####[address] [address] Potassium [Moles/Vol] 4.5 mmol/L Normal 3.5-5.1 [facility] Comment on above: Performed By: #### M G3, TROPN, BMP3M, ICA, LDH3, HEMDF, CRP2, DDI2, FERR3, LFT3, PHOS3 ####[address] [address] Chloride [Moles/Vol] 107 mmol/L Normal 98-107 [facility] Comment on above: Performed By: #### M G3, TROPN, BMP3M, ICA, LDH3, HEMDF, CRP2, DDI2, FERR3, LFT3, PHOS3 ####[address] [place] [address] Sodium [Moles/Vol] 138 mmol/L Normal 135-145 [facility] Comment on above: Performed By: #### M G3, TROPN, BMP3M, ICA, LDH3, HEMDF, CRP2, DDI2, FERR3, LFT3, PHOS3 ####[address] [place] [address] C-Reactive Proteinon 021 CRP [Mass/Vol] 54.6 mg/L High 0.0-6.0 [facility] Comment on above: Result Comment: . Performed By: #### M G3, TROPN, BMP3M, ICA, LDH3, HEMDF, CRP2, DDI2, FERR3, LFT3, PHOS3 ####[address] [place] [address] CR Chest Portableon 06-06-20 21 CR Chest Portable Normal [facility] CULT./ST. RESPIRATORYon 0 CULT./ST. RESPIRATORY CULT./ST. RESPIRAT ORY --> Status: F Few normal respiratory pretty. Normal [facility] Comment on above: Performed By: #### S /GRM, CS/RE ####[address] [place] [address] Calcium,Ionizedon 06-06-2021 Ionized Ca,Measured 4.20 mg/dL Low 4.30-5.20 [facility] Comment on above: Performed By: #### M G3, TROPN, BMP3M, ICA, LDH3, HEMDF, CRP2, DDI2, FERR3, LFT3, PHOS3 ####[facility] [employer] [id number] [place] [address] pH, Ionized Calcium 7.46 Normal 7.31-7.46 [facility] Comment on above: Performed By: #### M G3, TROPN, BMP3M, ICA, LDH3, HEMDF, CRP2, DDI2, FERR3, LFT3, PHOS3 ####[address] [place] [address] D-Dimer, Innovanceon 021 D-Dimer, Innovance 13.81 mg/L High <0.19-0.50 [facility] Comment on above: Result Comment: Inno carrington D-Dimer values of <0.50 mg/L FEU can be used incombination with a pre-test probability model (e.g. Well's)to exclude pulmonary embolism (PE) disease, as well as jodi in the diagnosis of deep vein thrombosis (DVT). Performed By: #### M G3, TROPN, BMP3M, ICA, LDH3, HEMDF, CRP2, DDI2, FERR3, LFT3, PHOS3 ####[email or web address] [id number] [place] [address] Ferritinon 06-06-2021 Ferritin [Mass/Vol] 138 ng/mL Normal 8-252 [facility] Comment on above: Performed By: #### M G3, TROPN, BMP3M, ICA, LDH3, HEMDF, CRP2, DDI2, FERR3, LFT3, PHOS3 ####[facility] [employer] [id number] [place] [address] Glucose,Bedsideon 06-06-2021 Glucose [Mass/Vol] 145 mg/dL High 70-100 [facility] Comment on above: Result Comment: Test performed by glucose meter. Results may be 10%-15% lowerthan serum/plasma values. (CLIA ID [id number]) Performed By: #### B GLU ####[facility] [employer] [id number] [place] [address] Glucose [Mass/Vol] 159 mg/dL High 70-100 [facility] Comment on above: Result Comment: Test performed by glucose meter. Results may be 10%-15% lowerthan serum/plasma values. (CLIA ID [id number]) Performed By: #### B GLU ####[id number] [place] [address] Glucose [Mass/Vol] 126 mg/dL High 70-100 [facility] Comment on above: Result Comment: Test performed by glucose meter. Results may be 10%-15% lowerthan serum/plasma values. (CLIA ID [id number]) Performed By: #### B GLU ####[address] [place] [address] Glucose [Mass/Vol] 148 mg/dL High 70-100 [facility] Comment on above: Result Comment: Test performed by glucose meter. Results may be 10%-15% lowerthan serum/plasma values. (CLIA ID [id number]) Performed By: #### B GLU ####[address] Hemogram w/ Autodiffon 06-06 Abs Baso Cnt 0.0 10*3/uL Normal 0.0-0.2 [facility] Comment on above: Performed By: #### M G3, TROPN, BMP3M, ICA, LDH3, HEMDF, CRP2, DDI2, FERR3, LFT3, PHOS3 ####[address] Abs Neutrophile Cnt 2.9 10*3/uL Normal 1.8-7.0 [facility] Comment on above: Performed By: #### M G3, TROPN, BMP3M, ICA, LDH3, HEMDF, CRP2, DDI2, FERR3, LFT3, PHOS3 ####[address] Basophils/100 WBC (Bld) 0.4 % Normal 0.0-2.0 [facility] Comment on above: Performed By: #### M G3, TROPN, BMP3M, ICA, LDH3, HEMDF, CRP2, DDI2, FERR3, LFT3, PHOS3 ####[address] Eosinophils (Bld) [#/Vol] 0.0 10*3/uL Normal 0.0-0.5 [facility] Comment on above: Performed By: #### M G3, TROPN, BMP3M, ICA, LDH3, HEMDF, CRP2, DDI2, FERR3, LFT3, PHOS3 ####[address] Eosinophils/100 WBC (Bld) 0.1 % Low 1.0-6.0 [facility] Comment on above: Performed By: #### M G3, TROPN, BMP3M, ICA, LDH3, HEMDF, CRP2, DDI2, FERR3, LFT3, PHOS3 ####[address] Erythrocyte distribution width (RBC) [Ratio] 20.1 % High 11.5-14.5 [facility] Comment on above: Performed By: #### M G3, TROPN, BMP3M, ICA, LDH3, HEMDF, CRP2, DDI2, FERR3, LFT3, PHOS3 ####[address] Granulocytes/100 WBC (Bld) 78.1 % Normal 40.0-80.0 [facility] Comment on above: Performed By: #### M G3, TROPN, BMP3M, ICA, LDH3, HEMDF, CRP2, DDI2, FERR3, LFT3, PHOS3 ####[address] Hematocrit (Bld) [Volume fraction] 33.8 % Low 35.0-47.0 [facility] Comment on above: Performed By: #### M G3, TROPN, BMP3M, ICA, LDH3, HEMDF, CRP2, DDI2, FERR3, LFT3, PHOS3 ####[address] Hemoglobin (Bld) [Mass/Vol] 10.6 g/dL Low 11.7-16.0 [facility] Comment on above: Performed By: #### M G3, TROPN, BMP3M, ICA, LDH3, HEMDF, CRP2, DDI2, FERR3, LFT3, PHOS3 ####[address] Lymphocytes (Bld) [#/Vol] 0.4 10*3/uL Low 1.0-4.3 [facility] Comment on above: Performed By: #### M G3, TROPN, BMP3M, ICA, LDH3, HEMDF, CRP2, DDI2, FERR3, LFT3, PHOS3 ####[address] Lymphocytes/100 WBC (Bld) 11.1 % Low 20.0-40.0 [facility] Comment on above: Performed By: #### M G3, TROPN, BMP3M, ICA, LDH3, HEMDF, CRP2, DDI2, FERR3, LFT3, PHOS3 ####[address] [place], [place] MCH (RBC) [Entitic mass] 22.3 pg Low 26.0-34.0 [facility] Comment on above: Performed By: #### M G3, TROPN, BMP3M, ICA, LDH3, HEMDF, CRP2, DDI2, FERR3, LFT3, PHOS3 ####[address] [place], [place] MCHC 31.4 % Low 32.0-36.0 [facility] Comment on above: Performed By: #### M G3, TROPN, BMP3M, ICA, LDH3, HEMDF, CRP2, DDI2, FERR3, LFT3, PHOS3 ####[address] [place], [place] MCV (RBC) [Entitic vol] 71.1 fL Low 79.0-98.0 [facility] Comment on above: Performed By: #### M G3, TROPN, BMP3M, ICA, LDH3, HEMDF, CRP2, DDI2, FERR3, LFT3, PHOS3 ####[address] [place], [place] Monocytes (Bld) [#/Vol] 0.4 10*3/uL Normal 0.0-0.8 [facility] Comment on above: Performed By: #### M G3, TROPN, BMP3M, ICA, LDH3, HEMDF, CRP2, DDI2, FERR3, LFT3, PHOS3 ####[address] [place], [place] Monocytes/100 WBC (Bld) 10.3 % High 2.0-10.0 [facility] Comment on above: Performed By: #### M G3, TROPN, BMP3M, ICA, LDH3, HEMDF, CRP2, DDI2, FERR3, LFT3, PHOS3 ####[address] [place], [place] Platelet mean volume (Bld) [Entitic vol] 8.5 fL Normal 7.4-10.4 [facility] Comment on above: Performed By: #### M G3, TROPN, BMP3M, ICA, LDH3, HEMDF, CRP2, DDI2, FERR3, LFT3, PHOS3 ####[address] [place], [place] Platelets (Bld) [#/Vol] 176 10*3/uL Normal 140-440 [facility] Comment on above: Performed By: #### M G3, TROPN, BMP3M, ICA, LDH3, HEMDF, CRP2, DDI2, FERR3, LFT3, PHOS3 ####[address] [place], [place] RBC (Bld) [#/Vol] 4.75 10*6/uL Normal 3.80-5.20 [facility] Comment on above: Performed By: #### M G3, TROPN, BMP3M, ICA, LDH3, HEMDF, CRP2, DDI2, FERR3, LFT3, PHOS3 ####[address] [place], [place] WBC (Bld) [#/Vol] 3.7 10*3/uL Normal 3.6-10.7 [facility] Comment on above: Performed By: #### M G3, TROPN, BMP3M, ICA, LDH3, HEMDF, CRP2, DDI2, FERR3, LFT3, PHOS3 ####[address] [place], [place] Hep B Core Ab,Totalon 2020 Hep B Core Ab,Total Negative Normal Negative [facility] Comment on above: Result Comment: INTE RPRETIVE INFORMATION: Hepatitis B Core Ab (Total)This assay should not be used for blood donor screening,associated re-entry protocols, or for screening Human Cells,Tissues and Cellular and Tissue-Based Products (HCT/P).Performed by [facility],[address] [place] [id number] [email or web address] Merari Garcia MD - Lab. Director Performed By: #### H BSAG, LFT3, HEMDF, HIV4, TROPN, MG3, BMP3M, DDI2, PHOS3, CRP2, HEPC, ICA, FERR3, LDH3 ####[address] #### IL6O, HBCAO ####The performing lab is in the report. Hepatic Functionon 1 ALT [Catalytic activity/Vol] 70 U/L High 0-34 [facility] Comment on above: Result Comment: The ALT test is performed by an updated assay method.Please note that the reference intervals have beenchanged and are now sex specific. Performed By: #### M G3, TROPN, BMP3M, ICA, LDH3, HEMDF, CRP2, DDI2, FERR3, LFT3, PHOS3 ####[address] [place], [place] ALP [Catalytic activity/Vol] 78 U/L Normal 38-126 [facility] Comment on above: Performed By: #### M G3, TROPN, BMP3M, ICA, LDH3, HEMDF, CRP2, DDI2, FERR3, LFT3, PHOS3 ####[address] AST [Catalytic activity/Vol] 87 U/L High 15-46 [facility] Comment on above: Performed By: #### M G3, TROPN, BMP3M, ICA, LDH3, HEMDF, CRP2, DDI2, FERR3, LFT3, PHOS3 ####[address] Bilirubin [Mass/Vol] 0.3 mg/dL Normal 0.2-1.3 [facility] Comment on above: Performed By: #### M G3, TROPN, BMP3M, ICA, LDH3, HEMDF, CRP2, DDI2, FERR3, LFT3, PHOS3 ####[address] Bilirubin.indirect [Mass/Vol] 0.0 mg/dL Normal 0.0-0.3 [facility] Comment on above: Performed By: #### M G3, TROPN, BMP3M, ICA, LDH3, HEMDF, CRP2, DDI2, FERR3, LFT3, PHOS3 ####[address] [place] [address] Protein [Mass/Vol] 6.1 g/dL Low 6.3-8.2 [facility] Comment on above: Performed By: #### M G3, TROPN, BMP3M, ICA, LDH3, HEMDF, CRP2, DDI2, FERR3, LFT3, PHOS3 ####[address] [place] [address] Albumin [Mass/Vol] 2.9 g/dL Low 3.5-5.0 [facility] Comment on above: Performed By: #### M G3, TROPN, BMP3M, ICA, LDH3, HEMDF, CRP2, DDI2, FERR3, LFT3, PHOS3 ####[address] [place] [address] LDHon 06-06-2021 LDH 408 U/L High 120-246 [facility] Comment on above: Performed By: #### M G3, TROPN, BMP3M, ICA, LDH3, HEMDF, CRP2, DDI2, FERR3, LFT3, PHOS3 ####[address] [place] [address] Magnesiumon 06-06-2021 Magnesium [Mass/Vol] 2.5 mg/dL High 1.6-2.3 [facility] Comment on above: Performed By: #### M G3, TROPN, BMP3M, ICA, LDH3, HEMDF, CRP2, DDI2, FERR3, LFT3, PHOS3 ####[address] [place] [address] Phosphoruson 06-06-2021 Phosphate [Mass/Vol] 4.4 mg/dL Normal 2.5-4.5 [facility] Comment on above: Performed By: #### M G3, TROPN, BMP3M, ICA, LDH3, HEMDF, CRP2, DDI2, FERR3, LFT3, PHOS3 ####[address] [place] [address] Troponin Ion 06-06-2021 Troponin I.cardiac [Mass/Vol] ng/mL Normal 0.000-0.034 [facility] Comment on above: Result Comment: . Performed By: #### M G3, TROPN, BMP3M, ICA, LDH3, HEMDF, CRP2, DDI2, FERR3, LFT3, PHOS3 ####[address] [place] [address] Arterial Blood Gaseson 06-05 CO2 [Moles/Vol] 30.7 mmol/L High 23.0-27.0 [facility] Comment on above: Performed By: #### A BG ####[address] [place], [place] HCO3 (Bld) [Moles/Vol] 29.2 mmol/L High 21.0-25.0 [facility] Comment on above: Performed By: #### A BG ####[address] [place], [place] Hemoglobin (Bld) [Mass/Vol] 11.2 g/dL Normal ScreenOnly [facility] Comment on above: Performed By: #### A BG ####[address] [place], [place] Oxygen (Bld) [Partial pressure] 97.0 mm[Hg] Normal 80.0-100.0 [facility] Comment on above: Performed By: #### A BG ####[address] Oxygen saturation in Blood 96.4 % Normal 95.0-100.0 [facility] Comment on above: Performed By: #### A BG ####[address] [facility], [place] pCO2 51.0 mm[Hg] High 35.0-45.0 [facility] Comment on above: Performed By: #### A BG ####[address] pH 7.375 Normal 7.350-7.450 [facility] Comment on above: Performed By: #### A BG ####[address] [place], [place] Std Base Excess 3.2 mmol/L High -3.0-3.0 [facility] Comment on above: Performed By: #### A BG ####[address] [place], [place] FIO2 60% Normal [facility] Comment on above: Performed By: #### A BG ####[address] [place] CO2 [Moles/Vol] 29.6 mmol/L High 23.0-27.0 [facility] Comment on above: Performed By: #### A BG ####[address] [place], [place] HCO3 (Bld) [Moles/Vol] 28.1 mmol/L High 21.0-25.0 [facility] Comment on above: Performed By: #### A BG ####[address] [place], [place] Hemoglobin (Bld) [Mass/Vol] 11.3 g/dL Normal ScreenOnly [facility] Comment on above: Performed By: #### A BG ####[address] [place], [place] Oxygen (Bld) [Partial pressure] 91.1 mm[Hg] Normal 80.0-100.0 [facility] Comment on above: Performed By: #### A BG ####[address] [place], [place] Oxygen saturation in Blood 96.0 % Normal 95.0-100.0 [facility] Comment on above: Performed By: #### A BG ####[address] [place] pCO2 50.2 mm[Hg] High 35.0-45.0 [facility] Comment on above: Performed By: #### A BG ####[address] [place], [place] pH 7.366 Normal 7.350-7.450 [facility] Comment on above: Performed By: #### A BG ####[address] [place], [place] Std Base Excess 2.1 mmol/L Normal -3.0-3.0 [facility] Comment on above: Performed By: #### A BG ####[address] [place] FIO2 60% Normal [facility] Comment on above: Performed By: #### A BG ####[address] CO2 [Moles/Vol] 28.7 mmol/L High 23.0-27.0 [facility] Comment on above: Performed By: #### A BG ####[address] HCO3 (Bld) [Moles/Vol] 27.1 mmol/L High 21.0-25.0 [facility] Comment on above: Performed By: #### A BG ####[address] [place] Hemoglobin (Bld) [Mass/Vol] 11.6 g/dL Normal ScreenOnly [facility] Comment on above: Performed By: #### A BG ####[address] [place], [place] Oxygen (Bld) [Partial pressure] 84.2 mm[Hg] Normal 80.0-100.0 [facility] Comment on above: Performed By: #### A BG ####[address] Oxygen saturation in Blood 95.7 % Normal 95.0-100.0 [facility] Comment on above: Performed By: #### A BG ####[address] pCO2 50.8 mm[Hg] High 35.0-45.0 [facility] Comment on above: Performed By: #### A BG ####[address] [place], [place] pH 7.345 Low 7.350-7.450 [facility] Comment on above: Performed By: #### A BG ####[address] [facility], [place] Std Base Excess 0.8 mmol/L Normal -3.0-3.0 [facility] Comment on above: Performed By: #### A BG ####[address] [facility], [place] FIO2 60% Normal [facility] Comment on above: Performed By: #### A BG ####[address] [place] CO2 [Moles/Vol] 28.9 mmol/L High 23.0-27.0 [facility] Comment on above: Performed By: #### A BG ####[address] [facility], [place] HCO3 (Bld) [Moles/Vol] 27.4 mmol/L High 21.0-25.0 [facility] Comment on above: Performed By: #### A BG ####[address] [place], [place] Hemoglobin (Bld) [Mass/Vol] 11.6 g/dL Normal ScreenOnly [facility] Comment on above: Performed By: #### A BG ####[address] [facility], [place] Oxygen (Bld) [Partial pressure] 83.5 mm[Hg] Normal 80.0-100.0 [facility] Comment on above: Performed By: #### A BG ####[address] [facility], [place] Oxygen saturation in Blood 95.0 % Normal 95.0-100.0 [facility] Comment on above: Performed By: #### A BG ####[facility] [address] pCO2 48.5 mm[Hg] High 35.0-45.0 [facility] Comment on above: Performed By: #### A BG ####[address] pH 7.370 Normal 7.350-7.450 [facility] Comment on above: Performed By: #### A BG ####[address] Std Base Excess 1.6 mmol/L Normal -3.0-3.0 [facility] Comment on above: Performed By: #### A BG ####[address] FIO2 60% Normal [facility] Comment on above: Performed By: #### A BG ####[address] Basic Metabolic Panelon 07-0 Calcium [Mass/Vol] 8.5 mg/dL Normal 8.4-10.4 [facility] Comment on above: Performed By: #### H BSAG, LFT3, HEMDF, HIV4, TROPN, MG3, BMP3M, DDI2, PHOS3, CRP2, HEPC, ICA, FERR3, LDH3 ####[address] #### IL6O, HBCAO ####The performing lab is in the report. Anion gap [Moles/Vol] 6 mmol/L Normal 3-13 [facility] Comment on above: Performed By: #### H BSAG, LFT3, HEMDF, HIV4, TROPN, MG3, BMP3M, DDI2, PHOS3, CRP2, HEPC, ICA, FERR3, LDH3 ####[address] #### IL6O, HBCAO ####The performing lab is in the report. CO2 [Moles/Vol] 25 mmol/L Normal 22-30 [facility] Comment on above: Performed By: #### H BSAG, LFT3, HEMDF, HIV4, TROPN, MG3, BMP3M, DDI2, PHOS3, CRP2, HEPC, ICA, FERR3, LDH3 ####[address] #### IL6O, HBCAO ####The performing lab is in the report. Glucose [Mass/Vol] 203 mg/dL High 70-100 [facility] Comment on above: Performed By: #### H BSAG, LFT3, HEMDF, HIV4, TROPN, MG3, BMP3M, DDI2, PHOS3, CRP2, HEPC, ICA, FERR3, LDH3 ####[address] #### IL6O, HBCAO ####The performing lab is in the report. Urea nitrogen [Mass/Vol] 27 mg/dL High 7-20 [facility] Comment on above: Performed By: #### H BSAG, LFT3, HEMDF, HIV4, TROPN, MG3, BMP3M, DDI2, PHOS3, CRP2, HEPC, ICA, FERR3, LDH3 ####[address] #### IL6O, HBCAO ####The performing lab is in the report. Creatinine [Mass/Vol] 0.96 mg/dL Normal 0.52-1.25 [facility] Comment on above: Performed By: #### H BSAG, LFT3, HEMDF, HIV4, TROPN, MG3, BMP3M, DDI2, PHOS3, CRP2, HEPC, ICA, FERR3, LDH3 ####[address] #### IL6O, HBCAO ####The performing lab is in the report. GFR/1.73 sq M.predicted among blacks MDRD (S/P/Bld) [Vol rate/Area] 78.1 mL/min/{1.73_m2} Normal >60 [facility] Comment on above: Performed By: #### H BSAG, LFT3, HEMDF, HIV4, TROPN, MG3, BMP3M, DDI2, PHOS3, CRP2, HEPC, ICA, FERR3, LDH3 ####[address] [address]#### IL6O, HBCAO ####The performing lab is in the report. GFR/1.73 sq M.predicted among non-blacks MDRD (S/P/Bld) [Vol rate/Area] 67.4 mL/min/{1.73_m2} Normal >60 [facility] Comment on above: Result Comment: KDIG O guidelines provide the following GFR categories:Stage GFR(ml/min/1.73 m2) TermsG1 >=90 Normal or highG2 60-89 Mildly decreased*G3a 45-59 Mildly to moderately [id number] 30-44 Moderately to severely decreasedG4 15-29 Severely [...] DDI2, PHOS3, CRP2, HEPC, ICA, FERR3, LDH3 ####[address] [address]#### IL6O, HBCAO ####The performing lab is in the report. Potassium [Moles/Vol] 4.2 mmol/L Normal 3.5-5.1 [facility] Comment on above: Performed By: #### H BSAG, LFT3, HEMDF, HIV4, TROPN, MG3, BMP3M, DDI2, PHOS3, CRP2, HEPC, ICA, FERR3, LDH3 ####[address] #### IL6O, HBCAO ####The performing lab is in the report. Sodium [Moles/Vol] 137 mmol/L Normal 135-145 [facility] Comment on above: Performed By: #### H BSAG, LFT3, HEMDF, HIV4, TROPN, MG3, BMP3M, DDI2, PHOS3, CRP2, HEPC, ICA, FERR3, LDH3 ####[address] #### IL6O, HBCAO ####The performing lab is in the report. Chloride [Moles/Vol] 106 mmol/L Normal 98-107 [facility] Comment on above: Performed By: #### H BSAG, LFT3, HEMDF, HIV4, TROPN, MG3, BMP3M, DDI2, PHOS3, CRP2, HEPC, ICA, FERR3, LDH3 ####[address] [id number]#### IL6O, HBCAO ####The performing lab is in the report. C-Reactive Proteinon 021 CRP [Mass/Vol] 89.2 mg/L High 0.0-6.0 [facility] Comment on above: Result Comment: . Performed By: #### H BSAG, LFT3, HEMDF, HIV4, TROPN, MG3, BMP3M, DDI2, PHOS3, CRP2, HEPC, ICA, FERR3, LDH3 ####[address] #### IL6O, HBCAO ####The performing lab is in the report. CR Chest Portableon 06-05-20 CR Chest Portable Normal [facility] Calcium,Ionizedon 06-05-2021 Ionized Ca,Measured 4.60 mg/dL Normal 4.30-5.20 [facility] Comment on above: Performed By: #### H BSAG, LFT3, HEMDF, HIV4, TROPN, MG3, BMP3M, DDI2, PHOS3, CRP2, HEPC, ICA, FERR3, LDH3 ####[address] [place], [place] #### IL6O, HBCAO ####The performing lab is in the report. pH, Ionized Calcium 7.35 Normal 7.31-7.46 [facility] Comment on above: Performed By: #### H BSAG, LFT3, HEMDF, HIV4, TROPN, MG3, BMP3M, DDI2, PHOS3, CRP2, HEPC, ICA, FERR3, LDH3 ####[address] #### IL6O, HBCAO ####The performing lab is in the report. D-Dimer, Innovanceon 021 D-Dimer, Innovance 4.34 mg/L High <0.19-0.50 [facility] Comment on above: Result Comment: Inno car[place] D-Dimer values of <0.50 mg/L FEU can be used incombination with a pre-test probability model (e.g. Well's)to exclude pulmonary embolism (PE) disease, as well as jodi in the diagnosis of deep vein thrombosis (DVT). Performed By: #### H BSAG, LFT3, HEMDF, HIV4, TROPN, MG3, BMP3M, DDI2, PHOS3, CRP2, HEPC, ICA, FERR3, LDH3 ####[address] #### IL6O, HBCAO ####The performing lab is in the report. Ferritinon 06-05-2021 Ferritin [Mass/Vol] 189 ng/mL Normal 8-252 [facility] Comment on above: Performed By: #### H BSAG, LFT3, HEMDF, HIV4, TROPN, MG3, BMP3M, DDI2, PHOS3, CRP2, HEPC, ICA, FERR3, LDH3 ####[address] #### IL6O, HBCAO ####The performing lab is in the report. Glucose,Bedsideon 06-05-2021 Glucose [Mass/Vol] 191 mg/dL High 70-100 [facility] Comment on above: Result Comment: Test performed by glucose meter. Results may be 10%-15% lowerthan serum/plasma values. (CLIA ID [id number]) Performed By: #### B GLU ####[email or web address] [id number] [place] [address] Glucose [Mass/Vol] 193 mg/dL High 70-100 [facility] Comment on above: Result Comment: Test performed by glucose meter. Results may be 10%-15% lowerthan serum/plasma values. (CLIA ID [id number]) Performed By: #### B GLU ####[facility] [employer] [id number] [place] [address] Glucose [Mass/Vol] 163 mg/dL High 70-[address] [place] [address] Comment on above: Result Comment: Test performed by glucose meter. Results may be 10%-15% lowerthan serum/plasma values. (CLIA ID [id number]) Performed By: #### B GLU ####[facility] [employer] [place] [address] Glucose [Mass/Vol] 179 mg/dL High [address] Comment on above: Result Comment: Test performed by glucose meter. Results may be 10%-15% lowerthan serum/plasma values. (CLIA ID [id number]) Performed By: #### B GLU ####[email or web address] [address] [place] [address] Glucose [Mass/Vol] 220 mg/dL High 70-[address] [place] [address] Comment on above: Result Comment: Test performed by glucose meter. Results may be 10%-15% lowerthan serum/plasma values. (CLIA ID [id number]) Performed By: #### B GLU ####[email or web address] [id number] [place] [address] HIV 1,2 Ab; p24 Agon HIV 1,2 Ab; p24 Ag Non-Reactive Normal Nonreactive [facility] Comment on above: Result Comment: The specimen was non-reactive for HIV-1 and HIV-2antibodies and p24 antigen using an FDA-cleared 4thgeneration HIV test. Based on this non-reactive screenresult, further reflexive testing was not indicated andwas, therefore, not performed. Performed By: #### H BSAG, LFT3, HEMDF, HIV4, TROPN, MG3, BMP3M, DDI2, PHOS3, CRP2, HEPC, ICA, FERR3, LDH3 ####[place] [address]#### IL6O, HBCAO ####The performing lab is in the report. Hemogram w/ Autodiffon 06-05 Abs Baso Cnt 0.0 10*3/uL Normal 0.0-0.2 [facility] Comment on above: Performed By: #### H BSAG, LFT3, HEMDF, HIV4, TROPN, MG3, BMP3M, DDI2, PHOS3, CRP2, HEPC, ICA, FERR3, LDH3 ####[address] [address]#### IL6O, HBCAO ####The performing lab is in the report. Abs Neutrophile Cnt 1.8 10*3/uL Normal 1.8-7.0 [facility] Comment on above: Performed By: #### H BSAG, LFT3, HEMDF, HIV4, TROPN, MG3, BMP3M, DDI2, PHOS3, CRP2, HEPC, ICA, FERR3, LDH3 ####[address] #### IL6O, HBCAO ####The performing lab is in the report. Basophils/100 WBC (Bld) 0.0 % Normal 0.0-2.0 [facility] Comment on above: Performed By: #### H BSAG, LFT3, HEMDF, HIV4, TROPN, MG3, BMP3M, DDI2, PHOS3, CRP2, HEPC, ICA, FERR3, LDH3 ####[address] #### IL6O, HBCAO ####The performing lab is in the report. Eosinophils (Bld) [#/Vol] 0.0 10*3/uL Normal 0.0-0.5 [facility] Comment on above: Performed By: #### H BSAG, LFT3, HEMDF, HIV4, TROPN, MG3, BMP3M, DDI2, PHOS3, CRP2, HEPC, ICA, FERR3, LDH3 ####[place] [address]#### IL6O, HBCAO ####The performing lab is in the report. Eosinophils/100 WBC (Bld) 0.0 % Low 1.0-6.0 [facility] Comment on above: Performed By: #### H BSAG, LFT3, HEMDF, HIV4, TROPN, MG3, BMP3M, DDI2, PHOS3, CRP2, HEPC, ICA, FERR3, LDH3 ####[place] [address]#### IL6O, HBCAO ####The performing lab is in the report. Erythrocyte distribution width (RBC) [Ratio] 20.3 % High 11.5-14.5 [facility] Comment on above: Performed By: #### H BSAG, LFT3, HEMDF, HIV4, TROPN, MG3, BMP3M, DDI2, PHOS3, CRP2, HEPC, ICA, FERR3, LDH3 ####[place] [address]#### IL6O, HBCAO ####The performing lab is in the report. Granulocytes/100 WBC (Bld) 76.6 % Normal 40.0-80.0 [facility] Comment on above: Performed By: #### H BSAG, LFT3, HEMDF, HIV4, TROPN, MG3, BMP3M, DDI2, PHOS3, CRP2, HEPC, ICA, FERR3, LDH3 ####[address] #### IL6O, HBCAO ####The performing lab is in the report. Hematocrit (Bld) [Volume fraction] 34.4 % Low 35.0-47.0 [facility] Comment on above: Performed By: #### H BSAG, LFT3, HEMDF, HIV4, TROPN, MG3, BMP3M, DDI2, PHOS3, CRP2, HEPC, ICA, FERR3, LDH3 ####[address] [address]#### IL6O, HBCAO ####The performing lab is in the report. Hemoglobin (Bld) [Mass/Vol] 10.7 g/dL Low 11.7-16.0 [facility] Comment on above: Performed By: #### H BSAG, LFT3, HEMDF, HIV4, TROPN, MG3, BMP3M, DDI2, PHOS3, CRP2, HEPC, ICA, FERR3, LDH3 ####[address] [address]#### IL6O, HBCAO ####The performing lab is in the report. Lymphocytes (Bld) [#/Vol] 0.2 10*3/uL Low 1.0-4.3 [facility] Comment on above: Performed By: #### H BSAG, LFT3, HEMDF, HIV4, TROPN, MG3, BMP3M, DDI2, PHOS3, CRP2, HEPC, ICA, FERR3, LDH3 ####[address] #### IL6O, HBCAO ####The performing lab is in the report. Lymphocytes/100 WBC (Bld) 10.3 % Low 20.0-40.0 [facility] Comment on above: Performed By: #### H BSAG, LFT3, HEMDF, HIV4, TROPN, MG3, BMP3M, DDI2, PHOS3, CRP2, HEPC, ICA, FERR3, LDH3 ####[address] [address]#### IL6O, HBCAO ####The performing lab is in the report. MCH (RBC) [Entitic mass] 22.3 pg Low 26.0-34.0 [facility] Comment on above: Performed By: #### H BSAG, LFT3, HEMDF, HIV4, TROPN, MG3, BMP3M, DDI2, PHOS3, CRP2, HEPC, ICA, FERR3, LDH3 ####[address] #### IL6O, HBCAO ####The performing lab is in the report. MCHC 31.3 % Low 32.0-36.0 [facility] Comment on above: Performed By: #### H BSAG, LFT3, HEMDF, HIV4, TROPN, MG3, BMP3M, DDI2, PHOS3, CRP2, HEPC, ICA, FERR3, LDH3 ####[address] #### IL6O, HBCAO ####The performing lab is in the report. MCV (RBC) [Entitic vol] 71.2 fL Low 79.0-98.0 [facility] Comment on above: Performed By: #### H BSAG, LFT3, HEMDF, HIV4, TROPN, MG3, BMP3M, DDI2, PHOS3, CRP2, HEPC, ICA, FERR3, LDH3 ####[address] #### IL6O, HBCAO ####The performing lab is in the report. Monocytes (Bld) [#/Vol] 0.3 10*3/uL Normal 0.0-0.8 [facility] Comment on above: Performed By: #### H BSAG, LFT3, HEMDF, HIV4, TROPN, MG3, BMP3M, DDI2, PHOS3, CRP2, HEPC, ICA, FERR3, LDH3 ####[address] #### IL6O, HBCAO ####The performing lab is in the report. Monocytes/100 WBC (Bld) 13.1 % High 2.0-10.0 [facility] Comment on above: Performed By: #### H BSAG, LFT3, HEMDF, HIV4, TROPN, MG3, BMP3M, DDI2, PHOS3, CRP2, HEPC, ICA, FERR3, LDH3 ####[address] [address]#### IL6O, HBCAO ####The performing lab is in the report. Platelet mean volume (Bld) [Entitic vol] 8.5 fL Normal 7.4-10.4 [facility] Comment on above: Performed By: #### H BSAG, LFT3, HEMDF, HIV4, TROPN, MG3, BMP3M, DDI2, PHOS3, CRP2, HEPC, ICA, FERR3, LDH3 ####[address] [address]#### IL6O, HBCAO ####The performing lab is in the report. Platelets (Bld) [#/Vol] 163 10*3/uL Normal 140-440 [facility] Comment on above: Performed By: #### H BSAG, LFT3, HEMDF, HIV4, TROPN, MG3, BMP3M, DDI2, PHOS3, CRP2, HEPC, ICA, FERR3, LDH3 ####[address] [address]#### IL6O, HBCAO ####The performing lab is in the report. RBC (Bld) [#/Vol] 4.83 10*6/uL Normal 3.80-5.20 [facility] Comment on above: Performed By: #### H BSAG, LFT3, HEMDF, HIV4, TROPN, MG3, BMP3M, DDI2, PHOS3, CRP2, HEPC, ICA, FERR3, LDH3 ####[address] [address]#### IL6O, HBCAO ####The performing lab is in the report. WBC (Bld) [#/Vol] 2.3 10*3/uL Low 3.6-10.7 [facility] Comment on above: Performed By: #### H BSAG, LFT3, HEMDF, HIV4, TROPN, MG3, BMP3M, DDI2, PHOS3, CRP2, HEPC, ICA, FERR3, LDH3 ####[place] [address]#### IL6O, HBCAO ####The performing lab is in the report. Hep B Surface Abon 1 Hep B Surface Ab < 8.0 Normal [facility] Comment on above: Result Comment: Inte rpretation:<8.0 Non-Reactive8.0-11.9 Equivocal>= 12.0 Ab DetectedNote: If an equivocal result is interpreted, an antibodystatus is unable to be determined. Collect new specimenif clinically indicated. Performed By: #### H BSA ####[address] Hep B Surface Agon 1 Hep B Surface Ag Not detected Normal Not Detected [facility] Comment on above: Performed By: #### H BSAG, LFT3, HEMDF, HIV4, TROPN, MG3, BMP3M, DDI2, PHOS3, CRP2, HEPC, ICA, FERR3, LDH3 ####[place] [address]#### IL6O, HBCAO ####The performing lab is in the report. Hep C Antibodyon 06-05-2021 Hep C Antibody Not detected Normal Not Detected [facility] Comment on above: Result Comment: Dalila ents with DETECTED Hepatitis C Ab results should have a new specimensubmitted for supplemental testing with a Hepatitis C Quantitative RNA assay(viral load), if clinically indicated. Performed By: #### H BSAG, LFT3, HEMDF, HIV4, TROPN, MG3, BMP3M, DDI2, PHOS3, CRP2, HEPC, ICA, FERR3, LDH3 ####[place] [address]#### IL6O, HBCAO ####The performing lab is in the report. Hepatic Functionon 1 ALT [Catalytic activity/Vol] 42 U/L High 0-34 [facility] Comment on above: Result Comment: The ALT test is performed by an updated assay method.Please note that the reference intervals have beenchanged and are now sex specific. Performed By: #### H BSAG, LFT3, HEMDF, HIV4, TROPN, MG3, BMP3M, DDI2, PHOS3, CRP2, HEPC, ICA, FERR3, LDH3 ####[address] #### IL6O, HBCAO ####The performing lab is in the report. ALP [Catalytic activity/Vol] 82 U/L Normal 38-126 [facility] Comment on above: Performed By: #### H BSAG, LFT3, HEMDF, HIV4, TROPN, MG3, BMP3M, DDI2, PHOS3, CRP2, HEPC, ICA, FERR3, LDH3 ####[address] #### IL6O, HBCAO ####The performing lab is in the report. AST [Catalytic activity/Vol] 49 U/L High 15-46 [facility] Comment on above: Performed By: #### H BSAG, LFT3, HEMDF, HIV4, TROPN, MG3, BMP3M, DDI2, PHOS3, CRP2, HEPC, ICA, FERR3, LDH3 ####[address] #### IL6O, HBCAO ####The performing lab is in the report. Bilirubin [Mass/Vol] 0.3 mg/dL Normal 0.2-1.3 [facility] Comment on above: Performed By: #### H BSAG, LFT3, HEMDF, HIV4, TROPN, MG3, BMP3M, DDI2, PHOS3, CRP2, HEPC, ICA, FERR3, LDH3 ####[address] #### IL6O, HBCAO ####The performing lab is in the report. Bilirubin.indirect [Mass/Vol] 0.0 mg/dL Normal 0.0-0.3 [facility] Comment on above: Performed By: #### H BSAG, LFT3, HEMDF, HIV4, TROPN, MG3, BMP3M, DDI2, PHOS3, CRP2, HEPC, ICA, FERR3, LDH3 ####[place] [address]#### IL6O, HBCAO ####The performing lab is in the report. Protein [Mass/Vol] 6.3 g/dL Normal 6.3-8.2 [facility] Comment on above: Performed By: #### H BSAG, LFT3, HEMDF, HIV4, TROPN, MG3, BMP3M, DDI2, PHOS3, CRP2, HEPC, ICA, FERR3, LDH3 ####[address] [address]#### IL6O, HBCAO ####The performing lab is in the report. Albumin [Mass/Vol] 3.0 g/dL Low 3.5-5.0 [facility] Comment on above: Performed By: #### H BSAG, LFT3, HEMDF, HIV4, TROPN, MG3, BMP3M, DDI2, PHOS3, CRP2, HEPC, ICA, FERR3, LDH3 ####[place] [address]#### IL6O, HBCAO ####The performing lab is in the report. LDHon 06-05-2021 LDH 383 U/L High 120-246 [facility] Comment on above: Performed By: #### H BSAG, LFT3, HEMDF, HIV4, TROPN, MG3, BMP3M, DDI2, PHOS3, CRP2, HEPC, ICA, FERR3, LDH3 ####[address] [address]#### IL6O, HBCAO ####The performing lab is in the report. Magnesiumon 06-05-2021 Magnesium [Mass/Vol] 2.4 mg/dL High 1.6-2.3 [facility] Comment on above: Performed By: #### H BSAG, LFT3, HEMDF, HIV4, TROPN, MG3, BMP3M, DDI2, PHOS3, CRP2, HEPC, ICA, FERR3, LDH3 ####[address] #### IL6O, HBCAO ####The performing lab is in the report. Phosphoruson 06-05-2021 Phosphate [Mass/Vol] 4.4 mg/dL Normal 2.5-4.5 [facility] Comment on above: Performed By: #### H BSAG, LFT3, HEMDF, HIV4, TROPN, MG3, BMP3M, DDI2, PHOS3, CRP2, HEPC, ICA, FERR3, LDH3 ####[address] #### IL6O, HBCAO ####The performing lab is in the report. Procalcitoninon 06-05-2021 Procalcitonin 0.07 ng/mL Normal 0.00-0.09 [facility] Comment on above: Performed By: #### P OLESYA ####[address] Interpretation See Below Normal [facility] Comment on above: Result Comment: PCT <0.50 = Low risk of severe sepsis and/or septic shock.PCT >2.00 = High risk of severe sepsis and/or septic shock. Performed By: #### P OLESYA ####[address] Quantiferonon 06-05-2021 Quantiferon Negative Normal Negative [facility] Comment on above: Performed By: #### C ORTL, QTF, DDI2, PT, CK3, ICA, FEIBC, LIPD2, TROPN, LACT3, MG3, FERR3, HA1C2, APTT, BNP3, PHOS3, PCAL, HEMDF, CRP2, LDH3, BMP3M, TSH5 ####[address] #### TRFN, [id number] ####[facility] [facility] [place] [address] Troponin Ion 06-05-2021 Troponin I.cardiac [Mass/Vol] ng/mL Normal 0.000-0.034 [facility] Comment on above: Result Comment: . Performed By: #### H BSAG, LFT3, HEMDF, HIV4, TROPN, MG3, BMP3M, DDI2, PHOS3, CRP2, HEPC, ICA, FERR3, LDH3 ####[facility] [place], [place] #### IL6O, HBCAO ####The performing lab is in the report. Arterial Blood Gaseson 06-04 CO2 [Moles/Vol] 27.9 mmol/L High 23.0-27.0 [facility] Comment on above: Performed By: #### A BG ####[address] [place], [place] HCO3 (Bld) [Moles/Vol] 26.5 mmol/L High 21.0-25.0 [facility] Comment on above: Performed By: #### A BG ####[address] [place], [place] Hemoglobin (Bld) [Mass/Vol] 12.1 g/dL Normal ScreenOnly [facility] Comment on above: Performed By: #### A BG ####[address] [place], [place] Oxygen (Bld) [Partial pressure] 142.9 mm[Hg] High 80.0-100.0 [facility] Comment on above: Performed By: #### A BG ####[address] [place], [place] Oxygen saturation in Blood 98.5 % Normal 95.0-100.0 [facility] Comment on above: Performed By: #### A BG ####[address] [place], [place] pCO2 47.7 mm[Hg] High 35.0-45.0 [facility] Comment on above: Performed By: #### A BG ####[address] [place], [place] pH 7.362 Normal 7.350-7.450 [facility] Comment on above: Performed By: #### A BG ####[address] [place], [place] Std Base Excess 0.6 mmol/L Normal -3.0-3.0 [facility] Comment on above: Performed By: #### A BG ####[address] [place], [place] FIO2 90% Normal [facility] Comment on above: Performed By: #### A BG ####[address] [place], [place] CO2 [Moles/Vol] 26.8 mmol/L Normal 23.0-27.0 [facility] Comment on above: Performed By: #### A BG ####[address] [place], [place] HCO3 (Bld) [Moles/Vol] 25.3 mmol/L High 21.0-25.0 [facility] Comment on above: Performed By: #### A BG ####[address] [place], [place] Hemoglobin (Bld) [Mass/Vol] 12.1 g/dL Normal ScreenOnly [facility] Comment on above: Performed By: #### A BG ####[address] [place], [place] Oxygen (Bld) [Partial pressure] 171.0 mm[Hg] High 80.0-100.0 [facility] Comment on above: Performed By: #### A BG ####[address] Oxygen saturation in Blood 98.9 % Normal 95.0-100.0 [facility] Comment on above: Performed By: #### A BG ####[address] [place], [place] pCO2 50.5 mm[Hg] High 35.0-45.0 [facility] Comment on above: Performed By: #### A BG ####[address] [place], [place] pH 7.317 Low 7.350-7.450 [facility] Comment on above: Performed By: #### A BG ####[address] [place], [place] Std Base Excess -1.3 mmol/L Normal -3.0-3.0 [facility] Comment on above: Performed By: #### A BG ####[address] [place], [place] FIO2 100% Normal [facility] Comment on above: Performed By: #### A BG ####[address] [place], [place] CO2 [Moles/Vol] 29.7 mmol/L High 23.0-27.0 [facility] Comment on above: Performed By: #### A BG ####[address] [place], [place] HCO3 (Bld) [Moles/Vol] 28.2 mmol/L High 21.0-25.0 [facility] Comment on above: Performed By: #### A BG ####[address] [place], [place] Hemoglobin (Bld) [Mass/Vol] 12.3 g/dL Normal ScreenOnly [facility] Comment on above: Performed By: #### A BG ####[address] [place], [place] Oxygen (Bld) [Partial pressure] 92.9 mm[Hg] Normal 80.0-100.0 [facility] Comment on above: Performed By: #### A BG ####[address] [place], [place] Oxygen saturation in Blood 96.0 % Normal 95.0-100.0 [facility] Comment on above: Performed By: #### A BG ####[address] [place], [place] pCO2 50.3 mm[Hg] High 35.0-45.0 [facility] Comment on above: Performed By: #### A BG ####[address] [place], [place] pH 7.366 Normal 7.350-7.450 [facility] Comment on above: Performed By: #### A BG ####[address] [place], [place] Std Base Excess 2.1 mmol/L Normal -3.0-3.0 [facility] Comment on above: Performed By: #### A BG ####[address] FIO2 100% Normal [facility] Comment on above: Performed By: #### A BG ####[address] CO2 [Moles/Vol] 29.3 mmol/L High 23.0-27.0 [facility] Comment on above: Performed By: #### A BG ####[address] [place] HCO3 (Bld) [Moles/Vol] 27.9 mmol/L High 21.0-25.0 [facility] Comment on above: Performed By: #### A BG ####[address] [address] [place] Hemoglobin (Bld) [Mass/Vol] 12.8 g/dL Normal ScreenOnly [facility] Comment on above: Performed By: #### A BG ####[address] Oxygen (Bld) [Partial pressure] 70.0 mm[Hg] Low 80.0-100.0 [facility] Comment on above: Performed By: #### A BG ####[address] Oxygen saturation in Blood 92.2 % Low 95.0-100.0 [facility] Comment on above: Performed By: #### A BG ####[address] [place], [place] pCO2 44.5 mm[Hg] Normal 35.0-45.0 [facility] Comment on above: Performed By: #### A BG ####[address] [place], [place] pH 7.415 Normal 7.350-7.450 [facility] Comment on above: Performed By: #### A BG ####[address] [place], [place] Std Base Excess 2.9 mmol/L Normal -3.0-3.0 [facility] Comment on above: Performed By: #### A BG ####[address] [place], [place] FIO2 100% Normal [facility] Comment on above: Performed By: #### A BG ####[address] [place], [place] Basic Metabolic Panelon 07-0 -2020 Calcium [Mass/Vol] 8.6 mg/dL Normal 8.4-10.4 [facility] Comment on above: Performed By: #### I CA, DDI2, MG3, PHOS3, FERR3, CRP2, HEMDF, LDH3, LFT3, BMP3M ####[address] [place], [place] Glucose [Mass/Vol] 174 mg/dL High 70-100 [facility] Comment on above: Performed By: #### I CA, DDI2, MG3, PHOS3, FERR3, CRP2, HEMDF, LDH3, LFT3, BMP3M ####[address] [place], [place] Anion gap [Moles/Vol] 7 mmol/L Normal 3-13 [facility] Comment on above: Performed By: #### I CA, DDI2, MG3, PHOS3, FERR3, CRP2, HEMDF, LDH3, LFT3, BMP3M ####[address] [address] [place], [place] CO2 [Moles/Vol] 27 mmol/L Normal 22-30 [facility] Comment on above: Performed By: #### I CA, DDI2, MG3, PHOS3, FERR3, CRP2, HEMDF, LDH3, LFT3, BMP3M ####[address] [place], [place] Urea nitrogen [Mass/Vol] 15 mg/dL Normal 7-20 [facility] Comment on above: Performed By: #### I CA, DDI2, MG3, PHOS3, FERR3, CRP2, HEMDF, LDH3, LFT3, BMP3M ####[address] [place], [place] Creatinine [Mass/Vol] 0.56 mg/dL Normal 0.52-1.25 [facility] Comment on above: Performed By: #### I CA, DDI2, MG3, PHOS3, FERR3, CRP2, HEMDF, LDH3, LFT3, BMP3M ####[address] eGFR OTHER > 90.0 Normal >60 [facility] Comment on above: Result Comment: KDIG O guidelines provide the following GFR categories:Stage GFR(ml/min/1.73 m2) TermsG1 >=90 Normal or highG2 60-89 Mildly decreased*G3a 45-59 Mildly to moderately qutiycmbmV8o 30-44 Moderately to severely decreasedG4 15-29 Severely [...] PHOS3, FERR3, CRP2, HEMDF, LDH3, LFT3, BMP3M ####[address] [place], [place] GFR/1.73 sq M.predicted among blacks MDRD (S/P/Bld) [Vol rate/Area] mL/min/{1.73_m2} Normal >60 [facility] Comment on above: Performed By: #### I CA, DDI2, MG3, PHOS3, FERR3, CRP2, HEMDF, LDH3, LFT3, BMP3M ####[address] [place], [place] Chloride [Moles/Vol] 105 mmol/L Normal 98-107 [facility] Comment on above: Performed By: #### I CA, DDI2, MG3, PHOS3, FERR3, CRP2, HEMDF, LDH3, LFT3, BMP3M ####[address] Potassium [Moles/Vol] 4.4 mmol/L Normal 3.5-5.1 [facility] Comment on above: Performed By: #### I CA, DDI2, MG3, PHOS3, FERR3, CRP2, HEMDF, LDH3, LFT3, BMP3M ####[address] Sodium [Moles/Vol] 140 mmol/L Normal 135-145 [facility] Comment on above: Performed By: #### I CA, DDI2, MG3, PHOS3, FERR3, CRP2, HEMDF, LDH3, LFT3, BMP3M ####[address] C-Reactive Proteinon 021 CRP [Mass/Vol] 146.8 mg/L High 0.0-6.0 [facility] Comment on above: Result Comment: . Performed By: #### I CA, DDI2, MG3, PHOS3, FERR3, CRP2, HEMDF, LDH3, LFT3, BMP3M ####[address] [place], [place] CR Chest Portableon 06-04-20 21 CR Chest Portable Normal [facility] Calcium,Ionizedon 06-04-2021 Ionized Ca,Measured 4.40 mg/dL Normal 4.30-5.20 [facility] Comment on above: Performed By: #### I CA, DDI2, MG3, PHOS3, FERR3, CRP2, HEMDF, LDH3, LFT3, BMP3M ####[address] [place], [place] pH, Ionized Calcium 7.41 Normal 7.31-7.46 [facility] Comment on above: Performed By: #### I CA, DDI2, MG3, PHOS3, FERR3, CRP2, HEMDF, LDH3, LFT3, BMP3M ####[address] Complete Urinalysison 2020 Appearance (U) Clear Normal Clear [facility] Comment on above: Result Comment: . Performed By: #### N AURR, CUA2, CRTUR, OSMUR ####[address] [address] [place], [place] Bacteria Few Abnormal Negative [facility] Comment on above: Result Comment: . Performed By: #### N AURR, CUA2, CRTUR, OSMUR ####[address] [address] [place], [place] Bilirubin,Urine Negative Normal Negative [facility] Comment on above: Result Comment: . Performed By: #### N AURR, CUA2, CRTUR, OSMUR ####[id number] [place], [place] Color (U) Light-Yellow Normal Lt. Yellow [facility] Comment on above: Result Comment: . Performed By: #### N AURR, CUA2, CRTUR, OSMUR ####[address] Glucose Ql (U) Normal Normal Normal (<70) [facility] Comment on above: Result Comment: . Performed By: #### N AURR, CUA2, CRTUR, OSMUR ####[facility] [place], [place] Ketone,Urine Negative Normal Negative [facility] Comment on above: Result Comment: . Performed By: #### N AURR, CUA2, CRTUR, OSMUR ####[facility] [place], [place] Leukocytes,Urine Negative Normal Negative [facility] Comment on above: Result Comment: . Performed By: #### N AURR, CUA2, CRTUR, OSMUR ####[address] [place], [place] Mucous Threads Few Normal Negative [facility] Comment on above: Result Comment: . Performed By: #### N AURR, CUA2, CRTUR, OSMUR ####[address] [place], [place] Nitrites,Urine Negative Normal Negative [facility] Comment on above: Result Comment: . Performed By: #### N AURR, CUA2, CRTUR, OSMUR ####[address] [place], [place] Occult Blood,Urine 1.0 mg/dL Abnormal Negative [facility] Comment on above: Result Comment: . Performed By: #### N AURR, CUA2, CRTUR, OSMUR ####[address] [place], [place] pH,Urine 5.5 Normal 5.0-8.0 [facility] Comment on above: Result Comment: . Performed By: #### N AURR, CUA2, CRTUR, OSMUR ####[address] [place], [place] Protein (U) [Mass/Vol] 30 mg/dL Abnormal Negative [facility] Comment on above: Result Comment: . Performed By: #### N AURR, CUA2, CRTUR, OSMUR ####[address] [place], [place] RBC, Urine 0 - 2 Normal 0-2 [facility] Comment on above: Result Comment: . Performed By: #### N AURR, CUA2, CRTUR, OSMUR ####[address] [place], [place] Specific Diggs,Urine 1.011 Normal 1.005 - 1.030 [facility] Comment on above: Result Comment: . Performed By: #### N AURR, CUA2, CRTUR, OSMUR ####[address] [place], [place] Squamous Epithelial Negative Normal 3-5 [facility] Comment on above: Result Comment: . Performed By: #### N AURR, CUA2, CRTUR, OSMUR ####[address] [place], [place] Urobilinogen,Urine Normal Normal Normal (0-1) [facility] Comment on above: Result Comment: . Performed By: #### N AURR, CUA2, CRTUR, OSMUR ####[address] WBC, Urine 0 - 2 Normal 0-5 [facility] Comment on above: Result Comment: . Performed By: #### N AURR, CUA2, CRTUR, OSMUR ####[address] Creatinine, Ur Randomon 07-0 Creatinine, Ur Random 60.1 mg/dL Normal No Range [facility] Comment on above: Performed By: #### N AURR, CUA2, CRTUR, OSMUR ####[address] [place], [place] D-Dimer, Innovanceon 07-06-2 021 D-Dimer, Innovance 7.94 mg/L High <0.19-0.50 [facility] Comment on above: Result Comment: Inno carrington D-Dimer values of <0.50 mg/L FEU can be used incombination with a pre-test probability model (e.g. Well's)to exclude pulmonary embolism (PE) disease, as well as jodi in the diagnosis of deep vein thrombosis (DVT). Performed By: #### I CA, DDI2, MG3, PHOS3, FERR3, CRP2, HEMDF, LDH3, LFT3, BMP3M ####[address] [place], [place] Ferritinon 06-04-2021 Ferritin [Mass/Vol] 215 ng/mL Normal 8-252 [facility] Comment on above: Performed By: #### I CA, DDI2, MG3, PHOS3, FERR3, CRP2, HEMDF, LDH3, LFT3, BMP3M ####[address] [place], [place] Glucose,Bedsideon 06-04-2021 Glucose [Mass/Vol] 193 mg/dL High 70-100 [facility] Comment on above: Result Comment: Test performed by glucose meter. Results may be 10%-15% lowerthan serum/plasma values. (CLIA ID [id number]) Performed By: #### B GLU ####[address] Glucose [Mass/Vol] 195 mg/dL High 70-100 [facility] Comment on above: Result Comment: Test performed by glucose meter. Results may be 10%-15% lowerthan serum/plasma values. (CLIA ID [id number]) Performed By: #### B GLU ####[address] Hemogram w/ Autodiffon 06-04 Abs Baso Cnt 0.0 10*3/uL Normal 0.0-0.2 [facility] Comment on above: Performed By: #### I CA, DDI2, MG3, PHOS3, FERR3, CRP2, HEMDF, LDH3, LFT3, BMP3M ####[address] [place], [place] Abs Neutrophile Cnt 4.8 10*3/uL Normal 1.8-7.0 [facility] Comment on above: Performed By: #### I CA, DDI2, MG3, PHOS3, FERR3, CRP2, HEMDF, LDH3, LFT3, BMP3M ####[address] [place], [place] Basophils/100 WBC (Bld) 0.2 % Normal 0.0-2.0 [facility] Comment on above: Performed By: #### I CA, DDI2, MG3, PHOS3, FERR3, CRP2, HEMDF, LDH3, LFT3, BMP3M ####[address] Eosinophils (Bld) [#/Vol] 0.0 10*3/uL Normal 0.0-0.5 [facility] Comment on above: Performed By: #### I CA, DDI2, MG3, PHOS3, FERR3, CRP2, HEMDF, LDH3, LFT3, BMP3M ####[address] Eosinophils/100 WBC (Bld) 0.0 % Low 1.0-6.0 [facility] Comment on above: Performed By: #### I CA, DDI2, MG3, PHOS3, FERR3, CRP2, HEMDF, LDH3, LFT3, BMP3M ####[address] Erythrocyte distribution width (RBC) [Ratio] 19.8 % High 11.5-14.5 [facility] Comment on above: Performed By: #### I CA, DDI2, MG3, PHOS3, FERR3, CRP2, HEMDF, LDH3, LFT3, BMP3M ####[address] Granulocytes/100 WBC (Bld) 85.7 % High 40.0-80.0 [facility] Comment on above: Performed By: #### I CA, DDI2, MG3, PHOS3, FERR3, CRP2, HEMDF, LDH3, LFT3, BMP3M ####[address] Hematocrit (Bld) [Volume fraction] 37.6 % Normal 35.0-47.0 [facility] Comment on above: Performed By: #### I CA, DDI2, MG3, PHOS3, FERR3, CRP2, HEMDF, LDH3, LFT3, BMP3M ####[address] Hemoglobin (Bld) [Mass/Vol] 12.0 g/dL Normal 11.7-16.0 [facility] Comment on above: Performed By: #### I CA, DDI2, MG3, PHOS3, FERR3, CRP2, HEMDF, LDH3, LFT3, BMP3M ####[address] Lymphocytes (Bld) [#/Vol] 0.4 10*3/uL Low 1.0-4.3 [facility] Comment on above: Performed By: #### I CA, DDI2, MG3, PHOS3, FERR3, CRP2, HEMDF, LDH3, LFT3, BMP3M ####[address] Lymphocytes/100 WBC (Bld) 6.5 % Low 20.0-40.0 [facility] Comment on above: Performed By: #### I CA, DDI2, MG3, PHOS3, FERR3, CRP2, HEMDF, LDH3, LFT3, BMP3M ####[address] [place], [place] MCH (RBC) [Entitic mass] 22.6 pg Low 26.0-34.0 [facility] Comment on above: Performed By: #### I CA, DDI2, MG3, PHOS3, FERR3, CRP2, HEMDF, LDH3, LFT3, BMP3M ####[address] [place], [place] MCHC 31.8 % Low 32.0-36.0 [facility] Comment on above: Performed By: #### I CA, DDI2, MG3, PHOS3, FERR3, CRP2, HEMDF, LDH3, LFT3, BMP3M ####[address] [place], [place] MCV (RBC) [Entitic vol] 71.0 fL Low 79.0-98.0 [facility] Comment on above: Performed By: #### I CA, DDI2, MG3, PHOS3, FERR3, CRP2, HEMDF, LDH3, LFT3, BMP3M ####[address] [place], [place] Monocytes (Bld) [#/Vol] 0.4 10*3/uL Normal 0.0-0.8 [facility] Comment on above: Performed By: #### I CA, DDI2, MG3, PHOS3, FERR3, CRP2, HEMDF, LDH3, LFT3, BMP3M ####[address] [place], [place] Monocytes/100 WBC (Bld) 7.6 % Normal 2.0-10.0 [facility] Comment on above: Performed By: #### I CA, DDI2, MG3, PHOS3, FERR3, CRP2, HEMDF, LDH3, LFT3, BMP3M ####[address] Platelet mean volume (Bld) [Entitic vol] 8.6 fL Normal 7.4-10.4 [facility] Comment on above: Performed By: #### I CA, DDI2, MG3, PHOS3, FERR3, CRP2, HEMDF, LDH3, LFT3, BMP3M ####[address] Platelets (Bld) [#/Vol] 204 10*3/uL Normal 140-440 [facility] Comment on above: Performed By: #### I CA, DDI2, MG3, PHOS3, FERR3, CRP2, HEMDF, LDH3, LFT3, BMP3M ####[address] RBC (Bld) [#/Vol] 5.30 10*6/uL High 3.80-5.20 [facility] Comment on above: Performed By: #### I CA, DDI2, MG3, PHOS3, FERR3, CRP2, HEMDF, LDH3, LFT3, BMP3M ####[address] WBC (Bld) [#/Vol] 5.6 10*3/uL Normal 3.6-10.7 [facility] Comment on above: Performed By: #### I CA, DDI2, MG3, PHOS3, FERR3, CRP2, HEMDF, LDH3, LFT3, BMP3M ####[address] Hepatic Functionon 1 ALP [Catalytic activity/Vol] 100 U/L Normal 38-126 [facility] Comment on above: Performed By: #### I CA, DDI2, MG3, PHOS3, FERR3, CRP2, HEMDF, LDH3, LFT3, BMP3M ####[address] [place], [place] ALT [Catalytic activity/Vol] 40 U/L High 0-34 [facility] Comment on above: Result Comment: The ALT test is performed by an updated assay method.Please note that the reference intervals have beenchanged and are now sex specific. Performed By: #### I CA, DDI2, MG3, PHOS3, FERR3, CRP2, HEMDF, LDH3, LFT3, BMP3M ####[address] [place], [place] AST [Catalytic activity/Vol] 78 U/L High 15-46 [facility] Comment on above: Performed By: #### I CA, DDI2, MG3, PHOS3, FERR3, CRP2, HEMDF, LDH3, LFT3, BMP3M ####[address] Bilirubin [Mass/Vol] 0.3 mg/dL Normal 0.2-1.3 [facility] Comment on above: Performed By: #### I CA, DDI2, MG3, PHOS3, FERR3, CRP2, HEMDF, LDH3, LFT3, BMP3M ####[address], [place] Bilirubin.indirect [Mass/Vol] 0.0 mg/dL Normal 0.0-0.3 [facility] Comment on above: Performed By: #### I CA, DDI2, MG3, PHOS3, FERR3, CRP2, HEMDF, LDH3, LFT3, BMP3M ####[address] Protein [Mass/Vol] 6.7 g/dL Normal 6.3-8.2 [facility] Comment on above: Performed By: #### I CA, DDI2, MG3, PHOS3, FERR3, CRP2, HEMDF, LDH3, LFT3, BMP3M ####[address] Albumin [Mass/Vol] 3.2 g/dL Low 3.5-5.0 [facility] Comment on above: Performed By: #### I CA, DDI2, MG3, PHOS3, FERR3, CRP2, HEMDF, LDH3, LFT3, BMP3M ####[address] LDHon 06-04-2021 LDH 576 U/L High 120-246 [facility] Comment on above: Performed By: #### I CA, DDI2, MG3, PHOS3, FERR3, CRP2, HEMDF, LDH3, LFT3, BMP3M ####[address] LEGIONELLA AG, URINEon 06-04 LEGIONELLA AG, URINE LEGIONELLA AG, URIN E --> Status: F Legionella antigen NOT DETECTED. Normal [facility] Comment on above: Performed By: #### TRINI DOHERTY ####[address] Magnesiumon 06-04-2021 Magnesium [Mass/Vol] 2.1 mg/dL Normal 1.6-2.3 [facility] Comment on above: Performed By: #### I CA, DDI2, MG3, PHOS3, FERR3, CRP2, HEMDF, LDH3, LFT3, BMP3M ####[facility] [place] [address] Osmolality,Urineon Osmolality,Urine 335 mosm/kg Normal 300-1000 [facility] Comment on above: Performed By: #### N AURR, CUA2, CRTUR, OSMUR ####[address] [place], [place] PNEUMONIA PCR PANELon 2020 PNEUMONIA PCR PANEL Normal [facility] Comment on above: Performed By: #### B FPNE ####[address] [place], [place] Phosphoruson 06-04-2021 Phosphate [Mass/Vol] 3.5 mg/dL Normal 2.5-4.5 [facility] Comment on above: Performed By: #### I CA, DDI2, MG3, PHOS3, FERR3, CRP2, HEMDF, LDH3, LFT3, BMP3M ####[address] [place], [place] STAIN GRAMon 06-04-2021 STAIN GRAM Normal [facility] Comment on above: Performed By: #### S /GRM, CS/RE ####[address] [place], [place] STREP PNEUMO ANTIGEN, URINEo n 06-04-2021 STREP PNEUMO ANTIGEN, URINE STREP PNEUMO ANTIGEN, URINE --> Status: F Strep pneumo antigen NOT DETECTED. Normal [facility] Comment on above: Performed By: #### S PAUR, LEGUR ####[facility] [place], [place] Sodium, Ur Randomon 06-04-20 21 Sodium [Moles/Vol] 8 mmol/L Low 30-90 [facility] Comment on above: Performed By: #### N AURR, CUA2, CRTUR, OSMUR ####[address] [place], [place] Transferrinon 06-04-2021 Transferrin [Mass/Vol] 277 mg/dL Normal 206-381 [facility] Comment on above: Performed By: #### C ORTL, QTF, DDI2, PT, CK3, ICA, FEIBC, LIPD2, TROPN, LACT3, MG3, FERR3, HA1C2, APTT, BNP3, PHOS3, PCAL, HEMDF, CRP2, LDH3, BMP3M, TSH5 ####[facility] [employer] [address] [place] [address]#### TRFN, VD25H ####[address] [place] [address] VL Venous Duplex US Lower Ex t Bilateralon 06-04-2021 VL Venous Duplex US Lower Ext Bilateral Normal [facility] Vit D 25-OH, Totalon 021 Vit D 25-OH, Total 19 ng/mL Low 30-100 [facility] Comment on above: Result Comment: Ther apy is based on measurement of Total 25- OHD with thefollowing classification levels:Less than 20 ng/mL: Indicative of Vit D [id number] ng/mL: Suggests Vit D insufficiencyOptimal: Greater than or equal to 30 ng/mLTest performed by [employer] Immunoassay,measuring Total Vitamin D, not individual fractions. Performed By: #### C ORTL, QTF, DDI2, PT, CK3, ICA, FEIBC, LIPD2, TROPN, LACT3, MG3, FERR3, HA1C2, APTT, BNP3, PHOS3, PCAL, HEMDF, CRP2, LDH3, BMP3M, TSH5 ####[facility] [address] [place], [place] #### TRFN, VD25H ####[facility] [employer] [address] [place] [address] APTTon 06-03-2021 aPTT Coag (Bld) [Time] 26.2 s Normal 20.0-30.5 [facility] Comment on above: Result Comment: NOTE : The therapeutic time for Heparin anticoagulation,based on Xa activity inhibition, is an APTT of 46-80seconds. Performed By: #### C ORTL, QTF, DDI2, PT, CK3, ICA, FEIBC, LIPD2, TROPN, LACT3, MG3, FERR3, HA1C2, APTT, BNP3, PHOS3, PCAL, HEMDF, CRP2, LDH3, BMP3M, TSH5 ####[facility] [place], [place] #### TRFN, VD25H ####[facility] [place] [address] Arterial Blood Gaseson 06-03 CO2 [Moles/Vol] 27.6 mmol/L High 23.0-27.0 [facility] Comment on above: Performed By: #### A BG ####[facility] [place], [place] HCO3 (Bld) [Moles/Vol] 26.5 mmol/L High 21.0-25.0 [facility] Comment on above: Performed By: #### A BG ####[address] Hemoglobin (Bld) [Mass/Vol] 12.8 g/dL Normal ScreenOnly [facility] Comment on above: Performed By: #### A BG ####[facility] [place], [place] Oxygen (Bld) [Partial pressure] 72.2 mm[Hg] Low 80.0-100.0 [facility] Comment on above: Performed By: #### A BG ####[address] [place], [place] Oxygen saturation in Blood 93.7 % Low 95.0-100.0 [facility] Comment on above: Performed By: #### A BG ####[facility] [place], [place] pCO2 38.0 mm[Hg] Normal 35.0-45.0 [facility] Comment on above: Performed By: #### A BG ####[address] [place], [place] pH 7.461 High 7.350-7.450 [facility] Comment on above: Performed By: #### A BG ####[address] Std Base Excess 2.7 mmol/L Normal -3.0-3.0 [facility] Comment on above: Performed By: #### A BG ####[address] FIO2 100% Normal [facility] Comment on above: Performed By: #### A BG ####[address] Basic Metabolic Panelon 07-0 -2020 Anion gap [Moles/Vol] 7 mmol/L Normal 3-13 [facility] Comment on above: Performed By: #### C ORTL, QTF, DDI2, PT, CK3, ICA, FEIBC, LIPD2, TROPN, LACT3, MG3, FERR3, HA1C2, APTT, BNP3, PHOS3, PCAL, HEMDF, CRP2, LDH3, BMP3M, TSH5 ####[address] #### OZIEL VD25H ####[facility] [place] [address] Calcium [Mass/Vol] 8.5 mg/dL Normal 8.4-10.4 [facility] Comment on above: Performed By: #### C ORTL, QTF, DDI2, PT, CK3, ICA, FEIBC, LIPD2, TROPN, LACT3, MG3, FERR3, HA1C2, APTT, BNP3, PHOS3, PCAL, HEMDF, CRP2, LDH3, BMP3M, TSH5 ####[address] [place], [place] #### TRFN, VD25H ####[facility] [place] [address] CO2 [Moles/Vol] 27 mmol/L Normal 22-30 [facility] Comment on above: Performed By: #### C ORTL, QTF, DDI2, PT, CK3, ICA, FEIBC, LIPD2, TROPN, LACT3, MG3, FERR3, HA1C2, APTT, BNP3, PHOS3, PCAL, HEMDF, CRP2, LDH3, BMP3M, TSH5 ####[address] #### OZIEL VD25H ####[address] [place] [address] Glucose [Mass/Vol] 140 mg/dL High 70-100 [facility] Comment on above: Performed By: #### C ORTL, QTF, DDI2, PT, CK3, ICA, FEIBC, LIPD2, TROPN, LACT3, MG3, FERR3, HA1C2, APTT, BNP3, PHOS3, PCAL, HEMDF, CRP2, LDH3, BMP3M, TSH5 ####[address] #### OZIEL VD25H ####[address] [address] Urea nitrogen [Mass/Vol] 13 mg/dL Normal 7-20 [facility] Comment on above: Performed By: #### C ORTL, QTF, DDI2, PT, CK3, ICA, FEIBC, LIPD2, TROPN, LACT3, MG3, FERR3, HA1C2, APTT, BNP3, PHOS3, PCAL, HEMDF, CRP2, LDH3, BMP3M, TSH5 ####[address] #### OZIEL VD25H ####[address] [address] Creatinine [Mass/Vol] 0.54 mg/dL Normal 0.52-1.25 [facility] Comment on above: Performed By: #### C ORTL, QTF, DDI2, PT, CK3, ICA, FEIBC, LIPD2, TROPN, LACT3, MG3, FERR3, HA1C2, APTT, BNP3, PHOS3, PCAL, HEMDF, CRP2, LDH3, BMP3M, TSH5 ####[address] [place] [address]#### OZIEL VD25H ####[address] [address] eGFR OTHER > 90.0 Normal >60 [facility] Comment on above: Result Comment: KDIG O guidelines provide the following GFR categories:Stage GFR(ml/min/1.73 m2) TermsG1 >=90 Normal or highG2 60-89 Mildly decreased*G3a 45-59 Mildly to moderately [id number] 30-44 Moderately to severely decreasedG4 15-29 Severely [...] PHOS3, PCAL, HEMDF, CRP2, LDH3, BMP3M, TSH5 ####[facility] [employer] [address] [address]#### OZIEL VD25H ####[address] [address] GFR/1.73 sq M.predicted among blacks MDRD (S/P/Bld) [Vol rate/Area] mL/min/{1.73_m2} Normal >60 [facility] Comment on above: Performed By: #### C ORTL, QTF, DDI2, PT, CK3, ICA, FEIBC, LIPD2, TROPN, LACT3, MG3, FERR3, HA1C2, APTT, BNP3, PHOS3, PCAL, HEMDF, CRP2, LDH3, BMP3M, TSH5 ####[address] #### CADET25H ####[place] [address] [facility] [place] [address] Chloride [Moles/Vol] 106 mmol/L Normal 98-107 [facility] Comment on above: Performed By: #### C ORTL, QTF, DDI2, PT, CK3, ICA, FEIBC, LIPD2, TROPN, LACT3, MG3, FERR3, HA1C2, APTT, BNP3, PHOS3, PCAL, HEMDF, CRP2, LDH3, BMP3M, TSH5 ####[address] #### CADET25H ####[address] [facility] [place] [address] Potassium [Moles/Vol] 4.3 mmol/L Normal 3.5-5.1 [facility] Comment on above: Performed By: #### C ORTL, QTF, DDI2, PT, CK3, ICA, FEIBC, LIPD2, TROPN, LACT3, MG3, FERR3, HA1C2, APTT, BNP3, PHOS3, PCAL, HEMDF, CRP2, LDH3, BMP3M, TSH5 ####[address] #### CADET25H ####[address] [facility] [place] [address] Sodium [Moles/Vol] 140 mmol/L Normal 135-145 [facility] Comment on above: Performed By: #### C ORTL, QTF, DDI2, PT, CK3, ICA, FEIBC, LIPD2, TROPN, LACT3, MG3, FERR3, HA1C2, APTT, BNP3, PHOS3, PCAL, HEMDF, CRP2, LDH3, BMP3M, TSH5 ####[address] #### CADET25H ####[facility] [place] [address] C REACTIVE PROTEINon 021 CRP [Mass/Vol] 181.1 mg/L High 0-10.0 [facility] Comment on above: Performed By: #### P T, CREACT, ESR, CMPF, HH, MG #### Testing performed at [facility] [address] [facility] [place] [address] C REACTIVE PROTEINOrdered By : Flash De La Rosa on 06-03-2021 CRP [Mass/Vol] 181.1 mg/L High 0 - 10.0 MG/L [facility] C-Reactive Proteinon 021 CRP [Mass/Vol] 158.7 mg/L High 0.0-6.0 [facility] Comment on above: Result Comment: . Performed By: #### C ORTL, QTF, DDI2, PT, CK3, ICA, FEIBC, LIPD2, TROPN, LACT3, MG3, FERR3, HA1C2, APTT, BNP3, PHOS3, PCAL, HEMDF, CRP2, LDH3, BMP3M, TSH5 ####[facility] [employer] [address] #### CADET25H ####[place] [address] [place] [address] CKon 06-03-2021 CK [Catalytic activity/Vol] 160 U/L Normal 30-170 [facility] Comment on above: Performed By: #### C ORTL, QTF, DDI2, PT, CK3, ICA, FEIBC, LIPD2, TROPN, LACT3, MG3, FERR3, HA1C2, APTT, BNP3, PHOS3, PCAL, HEMDF, CRP2, LDH3, BMP3M, TSH5 ####[facility] [employer] [id number] [place], [place] #### OZIEL VD25H ####[place] [address] [place] [address] CMP FASTINGon 06-03-2021 A:G RATIO 0.7 RATIO Low 1.3-2.2 [facility] Comment on above: Performed By: #### P T, CREACT, ESR, CMPF, HH, MG #### Testing performed at [address] [address] ALBUMIN 2.9 G/dl Low 3.5-5.0 [facility] Comment on above: Performed By: #### P T, CREACT, ESR, CMPF, HH, MG #### Testing performed at [address] [address] ALP [Catalytic activity/Vol] 74 U/L Normal 38-126 [facility] Comment on above: Performed By: #### P T, CREACT, ESR, CMPF, HH, MG #### Testing performed at [address] [address] ALT [Catalytic activity/Vol] 37 U/L Normal 14-54 [facility] Comment on above: Performed By: #### P T, CREACT, ESR, CMPF, HH, MG #### Testing performed at [address] [address] AST [Catalytic activity/Vol] 58 U/L High 15-41 [facility] Comment on above: Performed By: #### P T, CREACT, ESR, CMPF, HH, MG #### Testing performed at [address] [address] Bilirubin [Mass/Vol] 0.3 mg/dL Normal 0.2-1.2 [facility] Comment on above: Performed By: #### P T, CREACT, ESR, CMPF, HH, MG #### Testing performed at [address] [address] Calcium [Mass/Vol] 8.2 mg/dL Low 8.4-10.2 [facility] Comment on above: Performed By: #### P T, CREACT, ESR, CMPF, HH, MG #### Testing performed at [address] [address] Chloride [Moles/Vol] 103 mmol/L Normal 98-107 [facility] Comment on above: Performed By: #### P T, CREACT, ESR, CMPF, HH, MG #### Testing performed at [address] [address] CO2 [Moles/Vol] 24 mmol/L Normal 22-30 [facility] Comment on above: Performed By: #### P T, CREACT, ESR, CMPF, HH, MG #### Testing performed at [address] [address] Creatinine [Mass/Vol] 0.71 mg/dL Normal 0.52-1.04 [facility] Comment on above: Performed By: #### P T, CREACT, ESR, CMPF, HH, MG #### Testing performed at [address] [address] EST. GFR, >60 Normal [facility] Comment on above: Performed By: #### P T, CREACT, ESR, CMPF, HH, MG #### Testing performed at [address] [address] EST. GFR,Non >60 Normal [facility] Comment on above: Performed By: #### P T, CREACT, ESR, CMPF, HH, MG #### Testing performed at [address] [address] GFR Information Average GFR for 50-5 9 years old = 93. Normal [facility] Comment on above: Result Comment: Newspaper Correspondent randi Kidney disease, GFR = <60. Kidney failure, GFR = <15. The GFR estimate is not adjusted for extreme body surface area or acute process, nor has it been validated for women or ethnic groups other than and . Performed By: #### P T, CREACT, ESR, CMPF, HH, MG #### Testing performed at [address] [address] Glucose [Mass/Vol] 153 mg/dL High 70-100 [facility] Comment on above: Result Comment: NORMAL <100 mg/dL PREDIABETES 101-126 mg/dL DIABETES 126 mg/dL or higher Performed By: #### P T, CREACT, ESR, CMPF, HH, MG #### Testing performed at [address] [address] Potassium [Moles/Vol] 4.3 mmol/L Normal 3.5-5.1 [facility] Comment on above: Performed By: #### P T, CREACT, ESR, CMPF, HH, MG #### Testing performed at [address] [address] Protein [Mass/Vol] 7.3 g/dL Normal 6.3-8.2 [facility] Comment on above: Performed By: #### P T, CREACT, ESR, CMPF, HH, MG #### Testing performed at [address] [address] Sodium [Moles/Vol] 138 mmol/L Normal 136-145 [facility] Comment on above: Performed By: #### P T, CREACT, ESR, CMPF, HH, MG #### Testing performed at [address] [address] Urea nitrogen [Mass/Vol] 13 mg/dL Normal 7-20 [facility] Comment on above: Performed By: #### P T, CREACT, ESR, CMPF, HH, MG #### Testing performed at [address] [address] COMPREHENSIVE METABOLIC PANE LOrdered By: Flash De La Rosa on 06-03-2021 Albumin [Mass/Vol] 2.9 G/dl Low 3.5 - 5.0 G/dl [facility] Albumin/Globulin [Mass ratio] 0.7 {ratio} Low [facility] ALP [Catalytic activity/Vol] 74 U/L [facility] ALT [Catalytic activity/Vol] 37 U/L [facility] AST [Catalytic activity/Vol] 58 U/L High [facility] Bilirubin [Mass/Vol] 0.3 mg/dL [facility] Calcium [Mass/Vol] 8.2 mg/dL Low [facility] Chloride [Moles/Vol] 103 mmol/L [facility] CO2 [Moles/Vol] 24 mmol/L [facility] [facility] Creatinine [Mass/Vol] 0.71 mg/dL [facility] GFR COMMENT Average GFR for 50-5 9 years old = 93. [facility] Comment on above: Chronic Kidney disea se, GFR = <60. Kidney failure, GFR = <15. The GFR estimate is not adjusted for extreme body surface area or acute process, nor has it been validated for women or ethnic groups other than and . GFR/1.73 sq M.predicted among blacks MDRD (S/P/Bld) [Vol rate/Area] mL/min/{1.73_m2} ml/min/1.73s q.m [facility] GFR/1.73 sq M.predicted among non-blacks MDRD (S/P/Bld) [Vol rate/Area] mL/min/{1.73_m2} ml/min/1.73s q.m [facility] Glucose post fast [Mass/Vol] 153 mg/dL High [facility] Comment on above: NORMAL <100 mg/dL PREDIABETES 101-126 mg/dL DIABETES 126 mg/dL or higher Potassium [Moles/Vol] 4.3 mmol/L [facility] Protein [Mass/Vol] 7.3 g/dL [facility] Sodium [Moles/Vol] 138 mmol/L [facility] Urea nitrogen [Mass/Vol] 13 mg/dL [facility] CR Chest Portableon 06-03-20 CR Chest Portable Normal [facility] Calcium,Ionizedon 06-03-2021 Ionized Ca,Measured 3.90 mg/dL Low 4.30-5.20 [facility] Comment on above: Performed By: #### C ORTL, QTF, DDI2, PT, CK3, ICA, FEIBC, LIPD2, TROPN, LACT3, MG3, FERR3, HA1C2, APTT, BNP3, PHOS3, PCAL, HEMDF, CRP2, LDH3, BMP3M, TSH5 ####[facility] [employer] [id number] [place] [address]#### TRFN, [id number] ####[facility] [employer] [address] [place] [address] pH, Ionized Calcium 7.40 Normal 7.31-7.46 [facility] Comment on above: Performed By: #### C ORTL, QTF, DDI2, PT, CK3, ICA, FEIBC, LIPD2, TROPN, LACT3, MG3, FERR3, HA1C2, APTT, BNP3, PHOS3, PCAL, HEMDF, CRP2, LDH3, BMP3M, TSH5 ####[facility] [employer] [id number] [place], [place] #### CADET25H ####[facility] [employer] [address] [place] [address] Cortisolon 06-03-2021 Cortisol 4.5 ug/dL Normal [facility] Comment on above: Result Comment: Befo re 10am 4.5-22.7 ug/dLAfter 5pm 1.7-14.1 ug/dL Performed By: #### C ORTL, QTF, DDI2, PT, CK3, ICA, FEIBC, LIPD2, TROPN, LACT3, MG3, FERR3, HA1C2, APTT, BNP3, PHOS3, PCAL, HEMDF, CRP2, LDH3, BMP3M, TSH5 ####[facility] [employer] [address] #### CADET25H ####[facility] [employer] [id number] [place] [address] D-Dimer, Innovanceon 021 D-Dimer, Innovance 3.88 mg/L High <0.19-0.50 [facility] Comment on above: Result Comment: Inno carrington D-Dimer values of <0.50 mg/L FEU can be used incombination with a pre-test probability model (e.g. Well's)to exclude pulmonary embolism (PE) disease, as well as joid in the diagnosis of deep vein thrombosis (DVT). Performed By: #### C ORTL, QTF, DDI2, PT, CK3, ICA, FEIBC, LIPD2, TROPN, LACT3, MG3, FERR3, HA1C2, APTT, BNP3, PHOS3, PCAL, HEMDF, CRP2, LDH3, BMP3M, TSH5 ####[facility] [employer] [address] #### OZILE, VD25H ####[facility] [employer] [address] [place] [address] ESRon 06-03-2021 ESR (Bld) [Velocity] 51 mm/h High 0-30 [facility] Comment on above: Performed By: #### U MAC, UMIC #### Testing performed at [address] [address] Ferritinon 06-03-2021 Ferritin [Mass/Vol] 216 ng/mL Normal 8-252 [facility] Comment on above: Performed By: #### C ORTL, QTF, DDI2, PT, CK3, ICA, FEIBC, LIPD2, TROPN, LACT3, MG3, FERR3, HA1C2, APTT, BNP3, PHOS3, PCAL, HEMDF, CRP2, LDH3, BMP3M, TSH5 ####[facility] [place] [address]#### TRFN, VD25H ####[facility] [place] [address] HEMOGLOBIN & HEMATOCRITOrder ed By: Flash De La Rosa on 06-03-2021 Hematocrit (Bld) [Volume fraction] 35.8 % Low 36.0 - 48.0 % [facility] Hemoglobin (Bld) [Mass/Vol] 11.5 g/dL Low [facility] Interpretation and review of laboratory results Abnormal [facility] Hematocrit (Bld) [Volume fraction] 35.6 % Low 36.0 - 48.0 % [facility] Hemoglobin (Bld) [Mass/Vol] 11.3 g/dL Low [facility] Interpretation and review of laboratory results Abnormal [facility] HGB/HCTon 06-03-2021 Hematocrit (Bld) [Volume fraction] 35.8 % Low 36.0-48.0 [facility] Comment on above: Performed By: #### U MAC, UMIC #### Testing performed at [address] [address] Hemoglobin (Bld) [Mass/Vol] 11.5 g/dL Low 12.0-16.0 [facility] Comment on above: Performed By: #### U MAC, UMIC #### Testing performed at [address] [address] Hematocrit (Bld) [Volume fraction] 35.6 % Low 36.0-48.0 [facility] Comment on above: Performed By: #### U MAC, [facility] #### Testing performed at [address] [address] Hemoglobin (Bld) [Mass/Vol] 11.3 g/dL Low 12.0-16.0 [facility] Comment on above: Performed By: #### U MAC, [facility] #### Testing performed at [address] [address] Hemoglobin A1Con 06-03-2021 Glucose [Mass/Vol] 128 mg/dL Normal [facility] Comment on above: Performed By: #### C ORTL, QTF, DDI2, PT, CK3, ICA, FEIBC, LIPD2, TROPN, LACT3, MG3, FERR3, HA1C2, APTT, BNP3, PHOS3, PCAL, HEMDF, CRP2, LDH3, BMP3M, TSH5 ####[facility] [address] [place], [place] #### OZIEL VD25 ####[facility] [place] [address] HbA1c (Bld) [Mass fraction] 6.1 % Abnormal [facility] Comment on above: Result Comment: Norm al less than 5.7%Prediabetes 5.7% to 6.4%Diabetes 6.5% or higher--HgbA1C levels may not be accurate in patients who haverenal disease, received recent blood transfusions, are anemic,or who have dyshemoglobinemia. Performed By: #### C ORTL, QTF, DDI2, PT, CK3, ICA, FEIBC, LIPD2, TROPN, LACT3, MG3, FERR3, HA1C2, APTT, BNP3, PHOS3, PCAL, HEMDF, CRP2, LDH3, BMP3M, TSH5 ####[facility] Hospital[facility] [place] [address] #### OZIEL VD25H ####[facility] Hospital[facility] [address] [place] [address] Hemogram w/ Autodiffon 06-03 Abs Baso Cnt 0.0 10*3/uL Normal 0.0-0.2 [facility] Comment on above: Performed By: #### C ORTL, QTF, DDI2, PT, CK3, ICA, FEIBC, LIPD2, TROPN, LACT3, MG3, FERR3, HA1C2, APTT, BNP3, PHOS3, PCAL, HEMDF, CRP2, LDH3, BMP3M, TSH5 ####[address] #### OZIEL VD25H ####[address] [place] [address] Abs Neutrophile Cnt 2.4 10*3/uL Normal 1.8-7.0 [facility] Comment on above: Performed By: #### C ORTL, QTF, DDI2, PT, CK3, ICA, FEIBC, LIPD2, TROPN, LACT3, MG3, FERR3, HA1C2, APTT, BNP3, PHOS3, PCAL, HEMDF, CRP2, LDH3, BMP3M, TSH5 ####[address] #### OZIEL VD25H ####[address] [place] [address] Basophils/100 WBC (Bld) 0.1 % Normal 0.0-2.0 [facility] Comment on above: Performed By: #### C ORTL, QTF, DDI2, PT, CK3, ICA, FEIBC, LIPD2, TROPN, LACT3, MG3, FERR3, HA1C2, APTT, BNP3, PHOS3, PCAL, HEMDF, CRP2, LDH3, BMP3M, TSH5 ####[address] #### OZIEL, VD25H ####[address] [place] [address] Eosinophils (Bld) [#/Vol] 0.0 10*3/uL Normal 0.0-0.5 [facility] Comment on above: Performed By: #### C ORTL, QTF, DDI2, PT, CK3, ICA, FEIBC, LIPD2, TROPN, LACT3, MG3, FERR3, HA1C2, APTT, BNP3, PHOS3, PCAL, HEMDF, CRP2, LDH3, BMP3M, TSH5 ####[address] #### CADET25H ####[address] [place] [address] Eosinophils/100 WBC (Bld) 0.0 % Low 1.0-6.0 [facility] Comment on above: Performed By: #### C ORTL, QTF, DDI2, PT, CK3, ICA, FEIBC, LIPD2, TROPN, LACT3, MG3, FERR3, HA1C2, APTT, BNP3, PHOS3, PCAL, HEMDF, CRP2, LDH3, BMP3M, TSH5 ####[address] #### OZIEL VD25H ####[address] [place] [address] Erythrocyte distribution width (RBC) [Ratio] 19.9 % High 11.5-14.5 [facility] Comment on above: Performed By: #### C ORTL, QTF, DDI2, PT, CK3, ICA, FEIBC, LIPD2, TROPN, LACT3, MG3, FERR3, HA1C2, APTT, BNP3, PHOS3, PCAL, HEMDF, CRP2, LDH3, BMP3M, TSH5 ####[address] #### OZIEL VD25H ####[address] [place] [address] Granulocytes/100 WBC (Bld) 80.0 % Normal 40.0-80.0 [facility] Comment on above: Performed By: #### C ORTL, QTF, DDI2, PT, CK3, ICA, FEIBC, LIPD2, TROPN, LACT3, MG3, FERR3, HA1C2, APTT, BNP3, PHOS3, PCAL, HEMDF, CRP2, LDH3, BMP3M, TSH5 ####[address] #### OZIEL, VD25H ####[address] [place] [address] Hematocrit (Bld) [Volume fraction] 37.4 % Normal 35.0-47.0 [facility] Comment on above: Performed By: #### C ORTL, QTF, DDI2, PT, CK3, ICA, FEIBC, LIPD2, TROPN, LACT3, MG3, FERR3, HA1C2, APTT, BNP3, PHOS3, PCAL, HEMDF, CRP2, LDH3, BMP3M, TSH5 ####[address] #### OZIEL, VD25H ####[address] [address] Hemoglobin (Bld) [Mass/Vol] 11.8 g/dL Normal 11.7-16.0 [facility] Comment on above: Performed By: #### C ORTL, QTF, DDI2, PT, CK3, ICA, FEIBC, LIPD2, TROPN, LACT3, MG3, FERR3, HA1C2, APTT, BNP3, PHOS3, PCAL, HEMDF, CRP2, LDH3, BMP3M, TSH5 ####[address] #### OZIEL, VD25H ####[address] [address] Lymphocytes (Bld) [#/Vol] 0.3 10*3/uL Low 1.0-4.3 [facility] Comment on above: Performed By: #### C ORTL, QTF, DDI2, PT, CK3, ICA, FEIBC, LIPD2, TROPN, LACT3, MG3, FERR3, HA1C2, APTT, BNP3, PHOS3, PCAL, HEMDF, CRP2, LDH3, BMP3M, TSH5 ####[address] #### CADET25H ####[address] [place] [address] Lymphocytes/100 WBC (Bld) 10.0 % Low 20.0-40.0 [facility] Comment on above: Performed By: #### C ORTL, QTF, DDI2, PT, CK3, ICA, FEIBC, LIPD2, TROPN, LACT3, MG3, FERR3, HA1C2, APTT, BNP3, PHOS3, PCAL, HEMDF, CRP2, LDH3, BMP3M, TSH5 ####[address] #### CADET25H ####[address] [place] [address] MCH (RBC) [Entitic mass] 22.6 pg Low 26.0-34.0 [facility] Comment on above: Performed By: #### C ORTL, QTF, DDI2, PT, CK3, ICA, FEIBC, LIPD2, TROPN, LACT3, MG3, FERR3, HA1C2, APTT, BNP3, PHOS3, PCAL, HEMDF, CRP2, LDH3, BMP3M, TSH5 ####[address] #### CADET25H ####[address] [place] [address] MCHC 31.6 % Low 32.0-36.0 [facility] Comment on above: Performed By: #### C ORTL, QTF, DDI2, PT, CK3, ICA, FEIBC, LIPD2, TROPN, LACT3, MG3, FERR3, HA1C2, APTT, BNP3, PHOS3, PCAL, HEMDF, CRP2, LDH3, BMP3M, TSH5 ####[address] #### CADET25H ####[facility] [place] [address] MCV (RBC) [Entitic vol] 71.5 fL Low 79.0-98.0 [facility] Comment on above: Performed By: #### C ORTL, QTF, DDI2, PT, CK3, ICA, FEIBC, LIPD2, TROPN, LACT3, MG3, FERR3, HA1C2, APTT, BNP3, PHOS3, PCAL, HEMDF, CRP2, LDH3, BMP3M, TSH5 ####[address] #### OZIEL VD25H ####[address] [place] [address] Monocytes (Bld) [#/Vol] 0.3 10*3/uL Normal 0.0-0.8 [facility] Comment on above: Performed By: #### C ORTL, QTF, DDI2, PT, CK3, ICA, FEIBC, LIPD2, TROPN, LACT3, MG3, FERR3, HA1C2, APTT, BNP3, PHOS3, PCAL, HEMDF, CRP2, LDH3, BMP3M, TSH5 ####[address] #### OZIEL VD25H ####[address] [place] [address] Monocytes/100 WBC (Bld) 9.9 % Normal 2.0-10.0 [facility] Comment on above: Performed By: #### C ORTL, QTF, DDI2, PT, CK3, ICA, FEIBC, LIPD2, TROPN, LACT3, MG3, FERR3, HA1C2, APTT, BNP3, PHOS3, PCAL, HEMDF, CRP2, LDH3, BMP3M, TSH5 ####[address] #### OZIEL VD25H ####[address] [place] [address] Platelet mean volume (Bld) [Entitic vol] 8.5 fL Normal 7.4-10.4 [facility] Comment on above: Performed By: #### C ORTL, QTF, DDI2, PT, CK3, ICA, FEIBC, LIPD2, TROPN, LACT3, MG3, FERR3, HA1C2, APTT, BNP3, PHOS3, PCAL, HEMDF, CRP2, LDH3, BMP3M, TSH5 ####[address] #### OZIEL, VD25H ####[address] [place] [address] Platelets (Bld) [#/Vol] 140 10*3/uL Normal 140-440 [facility] Comment on above: Performed By: #### C ORTL, QTF, DDI2, PT, CK3, ICA, FEIBC, LIPD2, TROPN, LACT3, MG3, FERR3, HA1C2, APTT, BNP3, PHOS3, PCAL, HEMDF, CRP2, LDH3, BMP3M, TSH5 ####[facility] [employer] [address] #### OZIEL, VD25H ####[address] [place] [address] RBC (Bld) [#/Vol] 5.23 10*6/uL High 3.80-5.20 [facility] Comment on above: Performed By: #### C ORTL, QTF, DDI2, PT, CK3, ICA, FEIBC, LIPD2, TROPN, LACT3, MG3, FERR3, HA1C2, APTT, BNP3, PHOS3, PCAL, HEMDF, CRP2, LDH3, BMP3M, TSH5 ####[facility] [employer] [address] #### OZIEL, VD25H ####[address] [place] [address] WBC (Bld) [#/Vol] 3.0 10*3/uL Low 3.6-10.7 [facility] Comment on above: Performed By: #### C ORTL, QTF, DDI2, PT, CK3, ICA, FEIBC, LIPD2, TROPN, LACT3, MG3, FERR3, HA1C2, APTT, BNP3, PHOS3, PCAL, HEMDF, CRP2, LDH3, BMP3M, TSH5 ####[address] #### OZIEL VD25H ####[address] [place] [address] Iron AND TIBCon 06-03-2021 Saturation 7 % Low 15-50 [facility] Comment on above: Performed By: #### C ORTL, QTF, DDI2, PT, CK3, ICA, FEIBC, LIPD2, TROPN, LACT3, MG3, FERR3, HA1C2, APTT, BNP3, PHOS3, PCAL, HEMDF, CRP2, LDH3, BMP3M, TSH5 ####[address] #### OZIEL VD25H ####[address] [place] [address] Total Iron Binding Cap. 338 ug/dL Normal 261-497 [facility] Comment on above: Performed By: #### C ORTL, QTF, DDI2, PT, CK3, ICA, FEIBC, LIPD2, TROPN, LACT3, MG3, FERR3, HA1C2, APTT, BNP3, PHOS3, PCAL, HEMDF, CRP2, LDH3, BMP3M, TSH5 ####[address] #### TRCINDY, VD25H ####[address] [place] [address] Iron, Total 24 ug/dL Low 37-170 [facility] Comment on above: Performed By: #### C ORTL, QTF, DDI2, PT, CK3, ICA, FEIBC, LIPD2, TROPN, LACT3, MG3, FERR3, HA1C2, APTT, BNP3, PHOS3, PCAL, HEMDF, CRP2, LDH3, BMP3M, TSH5 ####[address] [place] [address]#### OZIEL VD25H ####[address] [place] [address] [place] [address] LACTATE, BLOODOrdered By: Jarrett on 06-03-2021 Lactate [Moles/Vol] 0.9 mmol/L [facility] Lactate [Moles/Vol] 1.1 mmol/L [facility] LACTIC ACIDon 06-03-2021 Lactate [Moles/Vol] 0.9 mmol/L Normal 0.5-2.0 [facility] Comment on above: Performed By: #### U MAC, [facility] #### Testing performed at [address] [address] Lactate [Moles/Vol] 1.1 mmol/L Normal 0.5-2.0 [facility] Comment on above: Performed By: #### C OVID #### Testing performed at [address] [address] LDHon 06-03-2021 LDH 601 U/L High 120-246 [facility] Comment on above: Performed By: #### C ORTL, QTF, DDI2, PT, CK3, ICA, FEIBC, LIPD2, TROPN, LACT3, MG3, FERR3, HA1C2, APTT, BNP3, PHOS3, PCAL, HEMDF, CRP2, LDH3, BMP3M, TSH5 ####[address] #### OZIEL VD25H ####[facility] [place] [address] Lactic Acidon 06-03-2021 Lactate [Moles/Vol] 0.8 mmol/L Normal 0.7-2.0 [facility] Comment on above: Performed By: #### C ORTL, QTF, DDI2, PT, CK3, ICA, FEIBC, LIPD2, TROPN, LACT3, MG3, FERR3, HA1C2, APTT, BNP3, PHOS3, PCAL, HEMDF, CRP2, LDH3, BMP3M, TSH5 ####[address] #### OZIEL VD25H ####[address] [place] [address] Lipid Panelon 06-03-2021 Chol/HDL 5 Normal [facility] Comment on above: Result Comment: Ref Range:< 3 Low Risk for CHD3-6 Mod Risk for CHD> 6 High Risk for CHD Performed By: #### C ORTL, QTF, DDI2, PT, CK3, ICA, FEIBC, LIPD2, TROPN, LACT3, MG3, FERR3, HA1C2, APTT, BNP3, PHOS3, PCAL, HEMDF, CRP2, LDH3, BMP3M, TSH5 ####[address] #### OZIEL VD25H ####[address] [place] [address] Cholesterol in HDL [Mass/Vol] 26 mg/dL Low 40-60 [facility] Comment on above: Performed By: #### C ORTL, QTF, DDI2, PT, CK3, ICA, FEIBC, LIPD2, TROPN, LACT3, MG3, FERR3, HA1C2, APTT, BNP3, PHOS3, PCAL, HEMDF, CRP2, LDH3, BMP3M, TSH5 ####[address] #### OZIEL VD25H ####[address] [place] [address] Low Density Lipoprotein 80 mg/dL Normal <100 [facility] Comment on above: Performed By: #### C ORTL, QTF, DDI2, PT, CK3, ICA, FEIBC, LIPD2, TROPN, LACT3, MG3, FERR3, HA1C2, APTT, BNP3, PHOS3, PCAL, HEMDF, CRP2, LDH3, BMP3M, TSH5 ####[address] #### OZIEL, VD25H ####[facility] [place] [address] Triglyceride [Mass/Vol] 90 mg/dL Normal <150 [facility] Comment on above: Performed By: #### C ORTL, QTF, DDI2, PT, CK3, ICA, FEIBC, LIPD2, TROPN, LACT3, MG3, FERR3, HA1C2, APTT, BNP3, PHOS3, PCAL, HEMDF, CRP2, LDH3, BMP3M, TSH5 ####[address] #### OZIEL, VD25H ####[address] [place] [address] Cholesterol [Mass/Vol] 124 mg/dL Normal < 200 [facility] Comment on above: Performed By: #### C ORTL, QTF, DDI2, PT, CK3, ICA, FEIBC, LIPD2, TROPN, LACT3, MG3, FERR3, HA1C2, APTT, BNP3, PHOS3, PCAL, HEMDF, CRP2, LDH3, BMP3M, TSH5 ####[address] #### OZIEL, VD25H ####[address] [place] [address] MAGNESIUMon 06-03-2021 Magnesium [Mass/Vol] 2.1 mg/dL Normal 1.6-2.3 [facility] Comment on above: Performed By: #### U JIMENEZ, [facility] #### [place] [address] MAGNESIUMOrdered By: Flash De La Rosa on 06-03-2021 Magnesium [Mass/Vol] 2.1 mg/dL [facility] Magnesiumon 06-03-2021 Magnesium [Mass/Vol] 2.2 mg/dL Normal 1.6-2.3 [facility] Comment on above: Performed By: #### C ORTL, QTF, DDI2, PT, CK3, ICA, FEIBC, LIPD2, TROPN, LACT3, MG3, FERR3, HA1C2, APTT, BNP3, PHOS3, PCAL, HEMDF, CRP2, LDH3, BMP3M, TSH5 ####[address] [address]#### TRFN, VD25H ####[facility] [employer] [id number] [place] [place] [address] NT pro BNPon 06-03-2021 Natriuretic peptide B (Bld) [Mass/Vol] 1248 pg/mL High 0-125 [facility] Comment on above: Performed By: #### C ORTL, QTF, DDI2, PT, CK3, ICA, FEIBC, LIPD2, TROPN, LACT3, MG3, FERR3, HA1C2, APTT, BNP3, PHOS3, PCAL, HEMDF, CRP2, LDH3, BMP3M, TSH5 ####[address] #### TRCINDY, VD25H ####[facility] [employer] [id number] [place] [place] [address] No Panel InformationOrdered By: Flash De La Rosa on 06-03-2021 Interpretation and review of laboratory results Abnormal [facility] PROTIMEon 06-03-2021 INR Coag (PPP) [Relative time] 1.01 {INR} Normal 0.85-1.10 [facility] Comment on above: Result Comment: 2.0-3.0 THERAPEUTIC RANGE 2.5-3.5 MECHANICAL VALVE RANGE Performed By: #### P T, CREACT, ESR, CMPF, HH, MG #### [place] [address] PT Coag (PPP) [Time] 13.5 s Normal 11.8-14.4 [facility] Comment on above: Performed By: #### P T, CREACT, ESR, CMPF, HH, MG #### [place] [address] PROTIME-INROrdered By: Elizabeth De La Rosa on 06-03-2021 INR Coag (PPP) [Relative time] 1.01 {INR} [facility] Comment on above: 2.0-3.0 THERAPEUTIC RANGE 2.5-3.5 MECHANICAL VALVE RANGE PT Coag (PPP) [Time] 13.5 s [facility] Phosphoruson 06-03-2021 Phosphate [Mass/Vol] 3.3 mg/dL Normal 2.5-4.5 [facility] Comment on above: Performed By: #### C ORTL, QTF, DDI2, PT, CK3, ICA, FEIBC, LIPD2, TROPN, LACT3, MG3, FERR3, HA1C2, APTT, BNP3, PHOS3, PCAL, HEMDF, CRP2, LDH3, BMP3M, TSH5 ####[address] #### OZIEL VD25H ####[address] [place] [address] Procalcitoninon 06-03-2021 Procalcitonin 0.07 ng/mL Normal 0.00-0.09 [facility] Comment on above: Performed By: #### C ORTL, QTF, DDI2, PT, CK3, ICA, FEIBC, LIPD2, TROPN, LACT3, MG3, FERR3, HA1C2, APTT, BNP3, PHOS3, PCAL, HEMDF, CRP2, LDH3, BMP3M, TSH5 ####[address] #### TRFN, VD25H ####[address] [place] [address] Interpretation See Below Normal [facility] Comment on above: Result Comment: PCT <0.50 = Low risk of severe sepsis and/or septic shock.PCT >2.00 = High risk of severe sepsis and/or septic shock. Performed By: #### C ORTL, QTF, DDI2, PT, CK3, ICA, FEIBC, LIPD2, TROPN, LACT3, MG3, FERR3, HA1C2, APTT, BNP3, PHOS3, PCAL, HEMDF, CRP2, LDH3, BMP3M, TSH5 ####[address] #### OZIEL VD25H ####[address] [address] Prothrombin Timeon 1 INR 1.0 Normal 0.9-1.1 [facility] Comment on above: Result Comment: Nadeem mmended [...] PHOS3, PCAL, HEMDF, CRP2, LDH3, BMP3M, TSH5 ####[address] #### [id number] ####[address] [address] PT Coag (PPP) [Time] 10.8 s Normal 9.0-12.0 [facility] Comment on above: Result Comment: . Performed By: #### C ORTL, QTF, DDI2, PT, CK3, ICA, FEIBC, LIPD2, TROPN, LACT3, MG3, FERR3, HA1C2, APTT, BNP3, PHOS3, PCAL, HEMDF, CRP2, LDH3, BMP3M, TSH5 ####[address] [address]#### OIZEL VD25H ####[address] [address] SEDIMENTATION RATE, AUTOMATE DOrdered By: Flash De La Rosa on 06-03-2021 ESR (Bld) [Velocity] 51 mm/h [facility] Interpretation and review of laboratory results Abnormal [facility] Staph Aureus Complete Nasalo n 06-03-2021 Staph Aureus Complete Nasal Normal [facility] Comment on above: Performed By: #### S APCR ####[facility] [employer] [address] Thyroid Stim. Hormoneon Thyroid Stim. Hormone 0.869 u[IU]/mL Normal 0.465-4.68 0 [facility] Comment on above: Performed By: #### C ORTL, QTF, DDI2, PT, CK3, ICA, FEIBC, LIPD2, TROPN, LACT3, MG3, FERR3, HA1C2, APTT, BNP3, PHOS3, PCAL, HEMDF, CRP2, LDH3, BMP3M, TSH5 ####[facility] [employer] [place] [address] #### TRFN, VD25H ####[facility] [employer] [address] [place] [address] Troponin Ion 06-03-2021 Troponin I.cardiac [Mass/Vol] ng/mL Normal 0.000-0.034 [facility] Comment on above: Result Comment: . Performed By: #### T ROPN ####[facility] [employer] [address] Troponin I.cardiac [Mass/Vol] ng/mL Normal 0.000-0.034 [facility] Comment on above: Result Comment: . Performed By: #### C ORTL, QTF, DDI2, PT, CK3, ICA, FEIBC, LIPD2, TROPN, LACT3, MG3, FERR3, HA1C2, APTT, BNP3, PHOS3, PCAL, HEMDF, CRP2, LDH3, BMP3M, TSH5 ####[facility] [place] [address] #### TRFN, VD25H ####[facility] [place] [address] 25 0H VITAMIN D LEVELon 07-0 25 0H VITAMIN D LEVEL 27.7 NG/ML Low >30 [facility] Comment on above: Result Comment: DEFICIENT <20 NG/ML INSUFFICIENT 20-<30 NG/ML SUFFICIENT 30-100 NG/ML POTENTIAL TOXICITY >100 NG/ML Performed By: #### U MAC, UMIC #### Testing performed at [address] [place] [address] ARTERIAL BLOOD GASon 021 KAROLYN'S TEST Positive Normal [facility] Comment on above: Performed By: #### U MAC, UMIC #### Testing performed at [address] [address] BASE EXCESS 0.9 mEq/L Normal 0-2 [facility] Comment on above: Performed By: #### U MAC, UMIC #### Testing performed at [address] [place] [address] cHCO3 (P,ST)C 24.3 mEq/L Normal 22-26 [facility] Comment on above: Performed By: #### U MAC, UMIC #### Testing performed at [address] [place] [address] ctCO2 (B)c 22.1 Vol% [facility] Comment on above: Performed By: #### U MAC, UMIC #### Testing performed at [address] [address] ctHb 10.8 g/dl Normal [facility] Comment on above: Performed By: #### U MAC, UMIC #### Testing performed at [address] [place] [address] FCOHb 1.8 % Normal [facility] Comment on above: Performed By: #### U MAC, UMIC #### Testing performed at [address] [place] [address] FMetHb 0.0 % [facility] Comment on above: Performed By: #### U MAC, UMIC #### Testing performed at [address] [place] [address] FO2Hb 94.8 % [facility] Comment on above: Performed By: #### U MAC, UMIC #### Testing performed at [address] [address] NOTES: BIPAP 14/8 RATE 14 [facility] Comment on above: Performed By: #### U MAC, UMIC #### Testing performed at [address] [address] PATIENT DIAGNOSIS COVID Normal [facility] Comment on above: Performed By: #### U MAC, UMIC #### Testing performed at [address] [address] PATIENT O2 SETTINGS 15L [facility] Comment on above: Performed By: #### U MAC, UMIC #### Testing performed at [address] [address] pCO2, arterial 35.8 mmHg Normal 35-45 [facility] Comment on above: Performed By: #### U MAC, UMIC #### Testing performed at [address] [address] pH, arterial 7.450 Normal 7.350-7.450 [facility] Comment on above: Performed By: #### U MAC, UMIC #### Testing performed at [address] [address] pO2,arterial 79.0 mmHg Low 80-100 [facility] Comment on above: Performed By: #### U MAC, UMIC #### Testing performed at [address] [address] SAMPLE SITE LEFT RADIAL Normal [facility] Comment on above: Performed By: #### U MAC, UMIC #### Testing performed at [address] [address] sO2,arterial 96.5 % Normal 95-100 [facility] Comment on above: Performed By: #### U MAC, UMIC #### Testing performed at [address] [address] B TYPE NATRIURETIC PEPTIDEon 06-02-2021 Natriuretic peptide B (Bld) [Mass/Vol] 123 pg/mL [facility] Comment on above: Result Comment: Test ing performed at [place] [address] Performed By: #### U MAC, UMIC #### Testing performed at [address] [address] B-TYPE NATRIURETIC PEPTIDE ( BRAIN)Ordered By: Flash De La Rosa on 06-02-2021 Natriuretic peptide B (Bld) [Mass/Vol] 123 pg/mL [facility] Comment on above: Testing performed at [address] B12 & FOLATEOrdered By: Jb De La Rosa on 06-02-2021 Cobalamin (Vitamin B12) [Mass/Vol] 537 pg/mL 180 - 914 PG/ML [facility] Folate [Mass/Vol] 16.0 ng/mL >5.9 NG/ML [facility] B12 FOLATEon 06-02-2021 Cobalamin (Vitamin B12) [Mass/Vol] 537 pg/mL Normal 180-914 [facility] Comment on above: Performed By: #### U MAC, UMIC #### Testing performed at [address] [address] FOLATE 16.0 NG/ML Normal >5.9 [facility] Comment on above: Performed By: #### U MAC, UMIC #### Testing performed at [address] [address] BLOOD CULTUREon 06-02-2021 Bacteria identified Cx Nom (Bld) SPECIMEN DESCRIPTION PERIPHERAL BLOOD DRAW CULTURE NO GROWTH 5 DAYS * Result Note: Testing performed at [place] [address] * REPORT STATUS 06/08/2021 * Result Note: FINAL * Normal [facility] Comment on above: Performed By: #### U MAC, UMIC #### Testing performed at [address] [address] Bacteria identified Cx Nom (Bld) SPECIMEN DESCRIPTION PERIPHERAL BLOOD DRAW CULTURE NO GROWTH 5 DAYS * Result Note: Testing performed at [place] [address] * REPORT STATUS 06/08/2021 * Result Note: FINAL * Normal [facility] Comment on above: Performed By: #### B LC #### Testing performed at [address] [address] Testing performed at [address] [address] BLOOD GAS, ARTERIALOrdered B y: Flash De La Rosa on 06-02-2021 Arterial patency Wrist artery --pre arterial puncture Positive [facility] Base excess Calc (BldV) [Moles/Vol] 0.9 mmol/L [facility] Carbon dioxide/Gas.total.at end expiration in Exhaled gas 22.1 Vol% [facility] Carboxyhemoglobin (Bld) [Mass fraction] 1.8 % [facility] CO2 (Bld) [Partial pressure] 35.8 mm[Hg] [facility] Diagnosis Narrative COVID [facility] HCO3 (Bld) [Moles/Vol] 24.3 mmol/L [facility] Hemoglobin (Bld) [Mass/Vol] 10.8 g/dL [facility] Interpretation and review of laboratory results Abnormal [facility] Methemoglobin (BldC) [Mass fraction] 0.0 % [facility] NOTE BIPAP 14/8 RATE 14 [facility] Oxygen (Bld) [Partial pressure] 15L [facility] Oxygen (Bld) [Partial pressure] 79.0 mm[Hg] Low [facility] Oxyhemoglobin (Bld) [Mass fraction] 94.8 % [facility] pH (Bld) 7.450 [pH] [facility] Specimen site Narrative LEFT RADIAL [facility] C REACTIVE PROTEINon 021 CRP [Mass/Vol] 143.1 mg/L High 0-10.0 [facility] Comment on above: Performed By: #### C OVID #### Testing performed at [address] [address] C REACTIVE PROTEINOrdered By : Nawaf Dalton on 06-02-2021 CRP [Mass/Vol] 143.1 mg/L High 0 - 10.0 MG/L [facility] CBCon 06-02-2021 DTYPE MANUAL DIFF Normal [facility] Comment on above: Performed By: #### U JIMENEZ UMIC #### Testing performed at [address] [address] Lymphocytes/100 WBC (Bld) 35 % Normal 20.0-55.0 [facility] Comment on above: Performed By: #### U MAC, UMIC #### Testing performed at [address] [address] Monocytes/100 WBC (Bld) 3 % Normal 0.0-10.0 [facility] Comment on above: Performed By: #### U MAC, UMIC #### Testing performed at [address] [address] Neutrophils/100 WBC (Bld) 62 % Normal 37.0-75.0 [facility] Comment on above: Performed By: #### U MAC, UMIC #### Testing performed at [address] [address] PLATELET COMMENT DECREASED Normal [facility] Comment on above: Performed By: #### U MAC, UMIC #### Testing performed at [address] [address] RBC morphology finding Nom (Bld) 2+ Normal [facility] Comment on above: Result Comment: MICR OCYTOSIS 1+ ANISOCYTE Performed By: #### U MAC, UMIC #### Testing performed at [address] [address] Erythrocyte distribution width (RBC) [Ratio] 20.4 % High 11.5-14.5 [facility] Comment on above: Performed By: #### U MAC, UMIC #### Testing performed at [address] [address] Hematocrit (Bld) [Volume fraction] 34.4 % Low 36.0-48.0 [facility] Comment on above: Performed By: #### U MAC, UMIC #### Testing performed at [address] [address] Hemoglobin (Bld) [Mass/Vol] 11.1 g/dL Low 12.0-16.0 [facility] Comment on above: Performed By: #### U MAC, UMIC #### Testing performed at [address] [address] MCH (RBC) [Entitic mass] 22.5 pg Low 26.0-35.0 [facility] Comment on above: Performed By: #### U MAC, UMIC #### Testing performed at [address] [address] MCHC (RBC) [Mass/Vol] 32.1 g/dL Normal 27.0-37.0 [facility] Comment on above: Performed By: #### U MAC, UMIC #### Testing performed at [address] [address] MCV (RBC) [Entitic vol] 69.9 fL Low 80.0-100.0 [facility] Comment on above: Performed By: #### U MAC, UMIC #### Testing performed at [address] [address] Platelet mean volume (Bld) [Entitic vol] 8.5 fL Normal 7.4-11.0 [facility] Comment on above: Performed By: #### U MAC, UMIC #### Testing performed at [address] [address] Platelets (Bld) [#/Vol] 125 10*3/uL Low 130.0-400.0 [facility] Comment on above: Performed By: #### U MAC, UMIC #### Testing performed at [address] [address] RBC (Bld) [#/Vol] 4.93 10*6/uL Normal 4.0-5.4 [facility] Comment on above: Performed By: #### U MAC, UMIC #### Testing performed at [address] [address] WBC (Bld) [#/Vol] 2.3 10*3/uL Low 3.6-11.0 [facility] Comment on above: Performed By: #### U MAC, UMIC #### Testing performed at [address] [address] CBC, EDIF, PLATELETOrdered B y: Nawaf Castellanoswilmersolis on 06-02-2021 Differential cell count method Nom (Bld) MANUAL DIFF % [facility] Erythrocyte distribution width (RBC) [Ratio] 20.4 % High 11.5 - 14.5 % [facility] Hematocrit (Bld) [Volume fraction] 34.4 % Low 36.0 - 48.0 % [facility] Hemoglobin (Bld) [Mass/Vol] 11.1 g/dL Low [facility] Interpretation and review of laboratory results Abnormal [facility] Lymphocytes/100 WBC (Bld) 35 % 20.0 - 55.0 % [facility] MCH (RBC) [Entitic mass] 22.5 pg Low 26.0 - 35.0 PG [facility] MCHC (RBC) [Mass/Vol] 32.1 g/dL [facility] MCV (RBC) [Entitic vol] 69.9 fL Low [facility] Monocytes/100 WBC (Bld) 3 % 0.0 - 10.0 % [facility] Morphology Terry (Bld) [Interp] 2+ [facility] Comment on above: MICROCYTOSIS 1+ ANISOCYTE Neutrophils/100 WBC (Bld) 62 % 37.0 - 75.0 % [facility] Platelet mean volume (Bld) [Entitic vol] 8.5 fL [facility] Platelet morphology finding Nom (Bld) DECREASED [facility] Platelets (Bld) [#/Vol] 125 10*3/uL Low 130.0 - 400.0 10*3/uL [facility] RBC (Bld) [#/Vol] 4.93 10*6/uL 4.0 - 5.4 10*6/uL [facility] WBC (Bld) [#/Vol] 2.3 10*3/uL Low 3.6 - 11.0 10*3/uL [facility] CMP FASTINGon 06-02-2021 A:G RATIO 0.7 RATIO Low 1.3-2.2 [facility] Comment on above: Performed By: #### U MAC, UMIC #### Testing performed at [address] [address] ALBUMIN 3.1 G/dl Low 3.5-5.0 [facility] Comment on above: Performed By: #### U MAC, UMIC #### Testing performed at [address] [address] ALP [Catalytic activity/Vol] 79 U/L Normal 38-126 [facility] Comment on above: Performed By: #### U MAC, UMIC #### Testing performed at [address] [address] ALT [Catalytic activity/Vol] 34 U/L Normal 14-54 [facility] Comment on above: Performed By: #### U MAC, UMIC #### Testing performed at [address] [address] AST [Catalytic activity/Vol] 58 U/L High 15-41 [facility] Comment on above: Performed By: #### U MAC, UMIC #### Testing performed at [address] [address] Bilirubin [Mass/Vol] 0.5 mg/dL Normal 0.2-1.2 [facility] Comment on above: Performed By: #### U MAC, UMIC #### Testing performed at [address] [address] Creatinine [Mass/Vol] 0.95 mg/dL Normal 0.52-1.04 [facility] Comment on above: Performed By: #### U MAC, UMIC #### Testing performed at [address] [address] EST. GFR, >60 Normal [facility] Comment on above: Performed By: #### U MAC, UMIC #### Testing performed at [address] [address] EST. GFR,Non >60 Normal [facility] Comment on above: Performed By: #### U MAC, UMIC #### Testing performed at [address] [address] GFR Information Average GFR for 50-5 9 years old = 93. Normal [facility] Comment on above: Result Comment: Newspaper Correspondent randi Kidney disease, GFR = <60. Kidney failure, GFR = <15. The GFR estimate is not adjusted for extreme body surface area or acute process, nor has it been validated for women or ethnic groups other than and . Performed By: #### U MAC, UMIC #### Testing performed at [address] [address] Protein [Mass/Vol] 7.4 g/dL Normal 6.3-8.2 [facility] Comment on above: Performed By: #### U MAC, UMIC #### Testing performed at [address] [address] Urea nitrogen [Mass/Vol] 13 mg/dL Normal 7-20 [facility] Comment on above: Performed By: #### U MAC, UMIC #### Testing performed at [address] [address] Calcium [Mass/Vol] 8.2 mg/dL Low 8.4-10.2 [facility] Comment on above: Performed By: #### U MAC, UMIC #### Testing performed at [address] [address] Chloride [Moles/Vol] 98 mmol/L Normal 98-107 [facility] Comment on above: Performed By: #### U MAC, UMIC #### Testing performed at [address] [address] CO2 [Moles/Vol] 25 mmol/L Normal 22-30 [facility] Comment on above: Performed By: #### U MAC, UMIC #### Testing performed at [address] [address] Glucose [Mass/Vol] 109 mg/dL High 70-100 [facility] Comment on above: Result Comment: NORMAL <100 mg/dL PREDIABETES 101-126 mg/dL DIABETES 126 mg/dL or higher Performed By: #### U MAC, UMIC #### Testing performed at [address] [address] Potassium [Moles/Vol] 4.2 mmol/L Normal 3.5-5.1 [facility] Comment on above: Performed By: #### U MAC, UMIC #### Testing performed at [address] [address] Sodium [Moles/Vol] 133 mmol/L Low 136-145 [facility] Comment on above: Performed By: #### U MAC, UMIC #### Testing performed at [address] [address] COMPREHENSIVE METABOLIC PANE LOrdered By: Nawaf Dalton on 06-02-2021 Albumin [Mass/Vol] 3.1 G/dl Low 3.5 - 5.0 G/dl [facility] Albumin/Globulin [Mass ratio] 0.7 {ratio} Low [facility] ALP [Catalytic activity/Vol] 79 U/L [facility] ALT [Catalytic activity/Vol] 34 U/L [facility] AST [Catalytic activity/Vol] 58 U/L High [facility] Bilirubin [Mass/Vol] 0.5 mg/dL [facility] Calcium [Mass/Vol] 8.2 mg/dL Low [facility] Chloride [Moles/Vol] 98 mmol/L [facility] CO2 [Moles/Vol] 25 mmol/L [facility] Creatinine [Mass/Vol] 0.95 mg/dL [facility] GFR COMMENT Average GFR for 50-5 9 years old = 93. [facility] Comment on above: Chronic Kidney disea se, GFR = <60. Kidney failure, GFR = <15. The GFR estimate is not adjusted for extreme body surface area or acute process, nor has it been validated for women or ethnic groups other than and . GFR/1.73 sq M.predicted among blacks MDRD (S/P/Bld) [Vol rate/Area] mL/min/{1.73_m2} ml/min/1.73s q.m [facility] GFR/1.73 sq M.predicted among non-blacks MDRD (S/P/Bld) [Vol rate/Area] mL/min/{1.73_m2} ml/min/1.73s q.m [facility] Glucose post fast [Mass/Vol] 109 mg/dL High [facility] Comment on above: NORMAL <100 mg/dL PREDIABETES 101-126 mg/dL DIABETES 126 mg/dL or higher Potassium [Moles/Vol] 4.2 mmol/L [facility] Protein [Mass/Vol] 7.4 g/dL [facility] Sodium [Moles/Vol] 133 mmol/L Low [facility] Urea nitrogen [Mass/Vol] 13 mg/dL [facility] CT PE STUDYon 06-02-2021 CT PE [...] AI TECHNOLOGY: This study was processed using [email or web address]. No prior found. Current Lung [...] lungs compatible with multifocal viral pneumonia. Normal [facility] CT PE STUDYOrdered By: Nawaf Dalton on 06-02-2021 IMPRESSION: 1. Poor contrast opacification of the pulmonary arteries is essentially nondiagnostic for pulmonary embolism. Enlargement of the main pulmonary artery suggests pulmonary arterial hypertension. 2. Cardiomegaly. 3. Extensive scattered airspace opacities throughout both lungs compatible with multifocal viral pneumonia. [facility] EXAMINATION: CT PE S TUDY [...] AI TECHNOLOGY: This study was processed using [email or web address]. No prior found. Current Lung [...] the visualized portions of the upper abdomen. [facility] User, Interfaces - 06/02/2021 1:25 PM [...] AI TECHNOLOGY: This study was processed using [employer]. No prior found. Current Lung Volume: [...] both lungs compatible with multifocal viral pneumonia. [facility] ESRon 06-02-2021 ESR (Bld) [Velocity] 121 mm/h High 0-30 [facility] Comment on above: Performed By: #### C OVID #### Testing performed at [facility] [address] [place] [address] FERRITINon 06-02-2021 Ferritin [Mass/Vol] 139 ng/mL Normal 11.0-306.8 [facility] Comment on above: Result Comment: DIONNA ENOPAUSAL FEMALES 6.9-282.5 POSTMENOPAUSAL FEMALES 14.0-233.1 Performed By: #### U [facility] UMIC #### Testing performed at [address] [address] FERRITINOrdered By: Flash london on 06-02-2021 Ferritin [Mass/Vol] 139 ng/mL [facility] Comment on above: PREMENOPAUSAL FEMALE S 6.9-282.5 POSTMENOPAUSAL FEMALES 14.0-233.1 HEMOGLOBIN & HEMATOCRITOrder ed By: Flash De La Rosa on 06-02-2021 Hematocrit (Bld) [Volume fraction] 34.3 % Low 36.0 - 48.0 % [facility] Hemoglobin (Bld) [Mass/Vol] 11.0 g/dL Low [facility] Interpretation and review of laboratory results Abnormal [facility] Hematocrit (Bld) [Volume fraction] 34.4 % Low 36.0 - 48.0 % [facility] Hemoglobin (Bld) [Mass/Vol] 11.1 g/dL Low [facility] Interpretation and review of laboratory results Abnormal [facility] HEPATIC FUNCTION PANELOrdere d By: Guilherme Naranjo on 06-02-2021 Albumin [Mass/Vol] 2.9 g/dL Low [facility] ALP [Catalytic activity/Vol] 79 U/L [facility] ALT [Catalytic activity/Vol] 32 U/L [facility] AST [Catalytic activity/Vol] 58 U/L High [facility] Bilirubin [Mass/Vol] 0.5 mg/dL [facility] Bilirubin.direct [Mass/Vol] 0.1 mg/dL [facility] Interpretation and review of laboratory results Abnormal [facility] Protein [Mass/Vol] 6.6 g/dL [facility] HGB/HCTon 06-02-2021 Hematocrit (Bld) [Volume fraction] 34.3 % Low 36.0-48.0 [facility] Comment on above: Performed By: #### U MAC, UMIC #### Testing performed at [address] [address] Hemoglobin (Bld) [Mass/Vol] 11.0 g/dL Low 12.0-16.0 [facility] Comment on above: Performed By: #### U MAC, UMIC #### Testing performed at [address] [address] Hematocrit (Bld) [Volume fraction] 34.4 % Low 36.0-48.0 [facility] Comment on above: Performed By: #### U MAC, UMIC #### Testing performed at [address] [address] Hemoglobin (Bld) [Mass/Vol] 11.1 g/dL Low 12.0-16.0 [facility] Comment on above: Performed By: #### U MAC, UMIC #### Testing performed at [address] [address] IRON PROFILEon 06-02-2021 Iron [Mass/Vol] 12 ug/dL Low 37-170 [facility] Comment on above: Performed By: #### U MAC, UMIC #### Testing performed at [address] [address] IRON BINDING 378 UG/DL Normal 250-450 [facility] Comment on above: Performed By: #### U MAC, UMIC #### Testing performed at [address] [address] TRANSFERRIN SATURATION,CALCULATED 3 % Normal [facility] Comment on above: Performed By: #### U MAC, UMIC #### Testing performed at [address] [address] IRON/IRON BINDING/TRANSFERRI NOrdered By: Flash De La Rosa on 06-02-2021 Interpretation and review of laboratory results Abnormal [facility] Iron [Mass/Vol] 12 ug/dL Low [facility] Iron binding capacity [Mass/Vol] 378 [facility] Iron saturation [Mass fraction] 3 % [facility] L PNEUMOPHILIA AG URINEon L PNEUMOPHILIA AG URINE Negative Normal NEGATIVE [facility] Comment on above: Performed By: #### S CYNTHIA EVANS #### Testing performed at [address] [address] LACTATE, BLOODOrdered By: Jarrett on 06-02-2021 Lactate [Moles/Vol] 0.8 mmol/L [facility] LACTIC ACIDon 06-02-2021 Lactate [Moles/Vol] 0.8 mmol/L Normal 0.5-2.0 [facility] Comment on above: Performed By: #### C OVID #### Testing performed at [address] [address] LEGION[facility]A URINARY AGOrdered By: Flash De La Rosa on 06-02-2021 L. pneumophila 1 Ag IA Ql (U) Negative NEGATIVE [facility] LIVER PANELon 06-02-2021 Albumin [Mass/Vol] 2.9 g/dL Low 3.5-5.0 [facility] Comment on above: Performed By: #### C OVID #### Testing performed at [address] [address] ALP [Catalytic activity/Vol] 79 U/L Normal 38-126 [facility] Comment on above: Performed By: #### C OVID #### Testing performed at [address] [address] ALT [Catalytic activity/Vol] 32 U/L Normal 14-54 [facility] Comment on above: Performed By: #### C OVID #### Testing performed at [address] [address] AST [Catalytic activity/Vol] 58 U/L High 15-41 [facility] Comment on above: Performed By: #### C OVID #### Testing performed at [address] [address] Bilirubin [Mass/Vol] 0.5 mg/dL Normal 0.2-1.2 [facility] Comment on above: Performed By: #### C OVID #### Testing performed at [address] [address] Bilirubin.indirect [Mass/Vol] 0.1 mg/dL Normal 0.0-0.2 [facility] Comment on above: Performed By: #### C OVID #### Testing performed at [address] [address] Protein [Mass/Vol] 6.6 g/dL Normal 6.3-8.2 [facility] Comment on above: Performed By: #### C OVID #### Testing performed at [address] [address] MRSA SCREENon 06-02-2021 MRSA DNA CHANTELL+probe Ql (Unsp spec) Not detected Normal NOT DETECTED [facility] Comment on above: Performed By: #### U MAC, UMIC #### Testing performed at [address] [address] STAPH AUREUS SCREEN Detected Abnormal NOT DETECTED [facility] Comment on above: Performed By: #### U MAC, UMIC #### Testing performed at [address] [address] NOVEL CORONAVIRUSon 06-02-20 21 NARRATIVE This test was perfor med using isothermal CHANTELL and has been approved as Emergency Use Authorization (EUA) for the qualitative detection [id number] nucleic acid. Normal [facility] Comment on above: Performed By: #### C OVID #### Testing performed at [place] [id number] SARS-CoV-2 (COVID-19) RNA CHANTELL+probe Ql (Unsp spec) Detected Abnormal NOT DETECTED [facility] Comment on above: Result Comment: ENHA NCED CONTACT, AND DROPLET ISOLATION IS REQUIRED FOR INPATIENTS WITH SARS-CoV-2. Result called to read back by: MORIS MARES 06/02/2021 @ 11:11 by [facility] Performed By: #### C OVID #### [place] [address] NOVEL CORONAVIRUS LAB 1 - NA SOPHARYNGEALOrdered By: Nawaf Dalton on 06-02-2021 Interpretation and review of laboratory results Abnormal [facility] NARRATIVE -1 This test was perfor med using isothermal CHANTELL and has been approved as Emergency Use Authorization (EUA) for the qualitative detection [id number] nucleic acid. [facility] SARS-CoV-2 (COVID-19) RNA CHANTELL+probe Ql (Unsp spec) Detected Abnormal NOT DETECTED [facility] Comment on above: ENHANCED CONTACT, AN D DROPLET ISOLATION IS REQUIRED FOR INPATIENTS WITH SARS-CoV-2. Result called to read back by: MORIS MARES 06/02/2021 @ 11:11 by [facility] No Panel InformationOrdered By: Flash De La Rosa on 06-02-2021 [facility] No Panel InformationOrdered By: Nawaf Dalton on 06-02-2021 [facility] Interpretation and review of laboratory results Abnormal [facility] PROCEDURE - CENTRAL LINE WIT H OR WITHOUT PACOrdered By: Al Stack on 06-02-2021 TAI Hawkins 06/02/2021 4:55 PM INDICATION: Vascular Access / Critically Ill / Limited access PROCEDURE IRON WORKER: Nathen VICENTE ATTENDING PHYSICIAN: In Attendance (N) [...] Estimated blood loss is less than 10ml. [facility] RETIC COUNTon 06-02-2021 RETIC COUNT 0.57 % Normal 0.50-2.30 [facility] Comment on above: Performed By: #### U [facility] #### Testing performed at [address] [address] RETICULOCYTESOrdered By: Nam De La Rosa on 06-02-2021 Reticulocytes/100 RBC (Bld) 0.57 % 0.50 - 2.30 % [facility] S PNEUMONIAE AG URINEon 07-0 S PNEUMONIAE AG URINE Negative Normal NEGATIVE [facility] Comment on above: Performed By: #### S PAGUT, LPAGUT #### Testing performed at [address] [address] SCREEN: MRSA ONLY, NARES (IS OLATION SCREEN)Ordered By: Flash De La Rosa on 06-02-2021 Interpretation and review of laboratory results Abnormal [facility] MRSA isol Org specific cx Ql (Nose) Not detected NOT DETECTED [facility] STAPHYOCOCCUS AUREUS BY PCR Detected Abnormal NOT DETECTED [facility] SEDIMENTATION RATE, AUTOMATE DOrdered By: Nawaf Dalton on 06-02-2021 ESR (Bld) [Velocity] 121 mm/h [facility] Interpretation and review of laboratory results Abnormal [facility] STREP PNEUMONIAE ANTIGEN, UR INEOrdered By: Flash De La Rosa on 06-02-2021 S. pneumoniae Ag Ql (U) Negative NEGATIVE [facility] TROPONIN I, HIGH SENSITIVITY on 06-02-2021 TROPONIN I, HIGH SENSITIVITY 12 pg/mL Normal 0-12 [facility] Comment on above: Result Comment: Indeterminant: >12 to 100 pg/mL female >20 to 100 pg/mL male Indicative of myocardial injury. Serial sampling is recommended, a change of greater than or equal to 20 pg/mL is indicative of acute coronary syndrome. Performed By: #### C OVID #### Testing performed at [address] [address] TROPONIN I, HIGH SENSITIVITY Ordered By: Nawaf Dalton on 06-02-2021 TROPONIN I, HIGH SENSITIVITY 12 pg/mL 0 - 12 pg/mL [facility] Comment on above: Indeterminant: >12 to 100 pg/mL female >20 to 100 pg/mL male Indicative of myocardial injury. Serial sampling is recommended, a change of greater than or equal to 20 pg/mL is indicative of acute coronary syndrome. [facility] URINALYSIS, MACROOrdered By: Nawaf Dalton on 06-02-2021 Bilirubin Ql (U) Negative NEGATIVE [facility] Clarity (U) CLEAR CLEAR [facility] Color (U) YELLOW YELLOW [facility] Glucose Test strip (U) [Mass/Vol] Negative NEGATIVE mg/dl [facility] Hemoglobin Ql (U) TRACE-LYSED Abnormal NEGATIVE [facility] Interpretation and review of laboratory results Abnormal [facility] Ketones (U) [Mass/Vol] Negative NEGAT EMMY mg/dl [facility] Leukocyte esterase Test strip Ql (U) Negative NEGATIVE [facility] Nitrite Ql (U) Negative NEGATIVE [facility] pH (U) 5.5 [pH] [facility] Protein Ql (U) 100 mg/dl Abnormal NEGATIVE [facility] Specific gravity (U) [Rel density] 1.020 [facility] Urobilinogen (U) [Mass/Vol] 0.2 mg/dL [facility] URINE MACROSCOPICon 06-02-20 Bilirubin Ql (U) Negative Normal NEGATIVE [facility] Comment on above: Performed By: #### U [facility], [facility] #### Testing performed at [address] [address] Clarity (U) CLEAR Normal CLEAR [facility] Comment on above: Performed By: #### U [facility], [facility] #### Testing performed at [address] [place] [address] Color (U) YELLOW Normal YELLOW [facility] Comment on above: Performed By: #### U [facility], [facility] #### Testing performed at [address] [address] Glucose Ql (U) Negative Normal NEGATIVE [facility] Comment on above: Performed By: #### U [facility], [facility] #### Testing performed at [address] [address] pH (U) 5.5 [pH] Normal 5.0-7.0 [facility] Comment on above: Performed By: #### U [facility], [facility] #### Testing performed at [address] [address] Protein (U) [Mass/Vol] 100 mg/dL Abnormal NEGATIVE [facility] Comment on above: Performed By: #### U [facility], [facility] #### Testing performed at [address] [address] URINE HEMOGLOBIN TRACE-LYSED Abnormal NEGATIVE [facility] Comment on above: Performed By: #### U [facility], [facility] #### Testing performed at [address] [address] URINE KETONE Negative Normal NEGATIVE [facility] Comment on above: Performed By: #### U [facility], [facility] #### Testing performed at [address] [address] URINE LEUKOTEST Negative Normal NEGATIVE [facility] Comment on above: Performed By: #### U [facility], [facility] #### Testing performed at [address] [address] URINE NITRATES Negative Normal NEGATIVE [facility] Comment on above: Performed By: #### U [facility], [facility] #### Testing performed at [address] [address] URINE SPEC GRAVITY 1.020 Normal 1.010-1.025 [facility] Comment on above: Performed By: #### U [facility], [facility] #### Testing performed at [address] [address] Urobilinogen Qn (U) 0.2 {Jessica'U}/dL Normal 0.2-1.0 [facility] Comment on above: Performed By: #### U [facility], [facility] #### Testing performed at [address] [address] URINE MICROSCOPICon 06-02-20 21 Bacteria LM.HPF (Urine sed) [#/Area] Negative Normal NEGATIVE [facility] Comment on above: Performed By: #### U [facility], [facility] #### Testing performed at [address] [address] CASTS NONE Normal NONE [facility] Comment on above: Performed By: #### U [facility], [facility] #### Testing performed at [address] [address] CRYSTAL NONE Normal NONE [facility] Comment on above: Performed By: #### U [facility], [facility] #### Testing performed at [address] [address] Epithelial cells LM Ql (Urine sed) 1 TO 5 Normal [facility] Comment on above: Performed By: #### U [facility], [facility] #### Testing performed at [address] [address] Mucus Ql (Urine sed) Negative Normal NEGATIVE [facility] Comment on above: Performed By: #### U [facility], UMIC #### Testing performed at [address] [address] URINE COMMENT CULTURE CRITERIA NOT MET, NO CULTURE PERFORMED. Normal [facility] Comment on above: Performed By: #### U [facility], UMIC #### Testing performed at [address] [address] URINE RBC'S Negative Normal NEGATIVE [facility] Comment on above: Performed By: #### U [facility], UMIC #### Testing performed at [address] [address] URINE WBC'S Negative Normal NEGATIVE [facility] Comment on above: Performed By: #### U [facility], [facility] #### Testing performed at [address] [address] URINE MICROSCOPICOrdered By: Nawaf Dalton on 06-02-2021 Bacteria LM.HPF (Urine sed) [#/Area] Negative NEGATIVE [facility] Casts LM.LPF (Urine sed) [#/Area] NONE NONE /LPF [facility] Crystals LM Nom (Urine sed) NONE NONE [facility] Epithelial cells LM Ql (Urine sed) 1 TO 5 /HPF [facility] Mucus Ql (Urine sed) Negative NEGATIVE [facility] RBC LM.HPF (Urine sed) [#/Area] Negative NEGATIVE /HPF [facility] Urine sediment comments LM Terry (Urine sed) CULTURE CRITERIA NOT MET, NO CULTURE PERFORMED. [facility] WBC LM.HPF (Urine sed) [#/Area] Negative NEGATIVE /HPF [facility] VITAMIN D (25-HYDROXY,TOTAL) Ordered By: Flash De La Rosa on 06-02-2021 25-hydroxyvitamin D [Mass/Vol] 27.7 Low >30 NG/ML [facility] Comment on above: DEFICIENT <20 NG/ML INSUFFICIENT 20-<30 NG/ML SUFFICIENT 30-100 NG/ML POTENTIAL TOXICITY >100 NG/ML Interpretation and review of laboratory results Abnormal [facility] XR CHEST AP PORTABLEon 06-02 XR [...] roughly similar to the prior study. Normal [facility] XR CHEST AP PORTABLEOrdered By: Flash De La Rosa on 06-02-2021 IMPRESSION: 1. Moder ate cardiomegaly. 2. Moderate scattered patchy infiltrates noted bilaterally which may be due to pulmonary edema and/or multifocal pneumonia roughly similar to the prior study. [facility] EXAM: XR CHEST AP PORTABLE HISTORY: [...] similar roughly similar to the prior study. [facility] User, Interfaces - 06/02/2021 5:15 PM [...] pneumonia roughly similar to the prior study. [facility] CHEST 2 VIEWSon 05-17-2021 CHEST [address] [address] Patient: JESUSITA ENGLAND Phone#: : 1970 Age: 51 Gender: F Pt. Type: Out Account: [id number] Location: Ordering: [facility] Exam Date: 05/17/2021/16:21 Family Phys: Charge Code: [id number] Physician: Caroline Order #: [id number] DLP Dose#: PROCEDURE: X-RAY CHEST 2 VIEWS [...] Sharma MD on 05/17/2021 at 16:47 Normal [facility] FOOT COMPLETE LTon FOOT COMPLETE LT [place] [address] Patient: JESUSITA ENGLAND Phone#: : 1970 Age: 51 Gender: F Pt. Type: Out Account: [id number] Location: Ordering: [facility] Exam Date: 05/17/2021/16:21 Family Phys: Charge Code: [id number] Physician: Caroline Order #: [id number] DLP Dose#: PROCEDURE: X-RAY FOOT LT COMPLETE [...] Sharma MD on 05/17/2021 at 16:49 Normal [facility] FOOT COMPLETE RTon 1 FOOT COMPLETE RT [address] [address] Patient: JESUSITA ENGLAND Phone#: : 1970 Age: 51 Gender: F Pt. Type: Out Account: [id number] [facility] Exam Date: 05/17/2021/16:24 Family Phys: Charge Code: [id number] Physician: Caroline Order #: [id number] DLP Dose#: PROCEDURE: X-RAY FOOT RT COMPLETE [...] Sharma MD on 05/17/2021 at 16:50 Normal [facility] Laboratory - Chemistry and C hemistry - challengeon 05-17-2021 Ferritin [Mass/Vol] 5 ng/mL Abnormal 16 - 232 ng/mL [facility], [facility].; [facility], [facility]. Laboratory - Hematology and Cell countson 05-17-2021 Basophils (Bld) [#/Vol] 0.022 10*3/uL Normal 0 - 200 {cells/uL} [facility], [facility].; [facility], [facility]. Basophils/100 WBC (Bld) 0.3 % Normal [facility], [facility].; [facility], [facility]. Eosinophils (Bld) [#/Vol] 0.173 10*3/uL Normal 15 - 500 {cells/uL} [facility]. Eosinophils/100 WBC (Bld) 2.4 % Normal [facility].; [facility], [facility]. Erythrocyte distribution width (RBC) [Ratio] 16.8 % Abnormal 11.0 - 15.0 % [facility].; [facility], [facility] Hematocrit (Bld) [Volume fraction] 34.7 % Abnormal 35.0 - 45.0 % [facility].; [facility], [facility]. Hemoglobin (Bld) [Mass/Vol] 10.6 g/dL Abnormal 11.7 - 15.5 g/dL [facility].; [facility], [facility]. Lymphocytes (Bld) [#/Vol] 1.188 10*3/uL Normal 850 - 3900 {cells/uL} [facility].; [facility], [facility]. Lymphocytes/100 WBC (Bld) 16.5 % Normal [facility].; [facility], [facility]. MCH (RBC) [Entitic mass] 22.1 pg Abnormal 27.0 - 33.0 pg [facility].; [facility], [facility]. MCHC (RBC) [Mass/Vol] 30.5 g/dL Abnormal 32.0 - 36.0 g/dL [facility].; [facility], [facility]. MCV (RBC) [Entitic vol] 72.3 fL Abnormal 80.0 - 100.0 fL [facility].; [facility], [facility]. Monocytes (Bld) [#/Vol] 0.619 10*3/uL Normal 200 - 950 {cells/uL} [facility].; [facility], [facility]. Monocytes/100 WBC (Bld) 8.6 % Normal [facility].; [facility], [facility]. Neutrophils (Bld) [#/Vol] 5.198 10*3/uL Normal 1500 - 7800 {cells/uL} [facility], [facility].; [facility], [facility]. Neutrophils/100 WBC (Bld) 72.2 % Normal [facility].; [facility], [facility]. Platelet mean volume (Bld) [Entitic vol] 9.7 fL Normal 7.5 - 12.5 fL [place] [email or web address] Platelets (Bld) [#/Vol] 249 10*3/uL Normal 140 - 400 [place] [email or web address] RBC (Bld) [#/Vol] 4.80 10*6/uL Normal 3.80 - 5.1 0 {Million/uL} [employer] WBC (Bld) [#/Vol] 7.2 10*3/uL Normal 3.8 - 10.8 [employer] No Panel Informationon 05-17 IRON, TOTAL 24 ug/dL Abnormal 45 - 160 ug/dL [place] [email or web address] ECHOCARDIOGRAMOrdered By: Me shilo Crews on 04-05-2021 [...] ms MVA PHT 3.22 cm2 MV Dec [place] 970.89 cm/s2 MV Decel. Time 139.71 (160-240 ms) Pulmonary Valve PV Peak Velocity 0.8 (0.5-1.5 m/s) PV maxPG 2.8 mmHg PV Vmax 0.8 m/s Tricuspid Valve TR P. Velocity 2.62 m/s RAP Estimate 3 mmHg RVSP 30.43 mmHg TR maxPG 27.43 mmHg [employer] User, Interfaces - 04/05/2021 12:17 PM EDT [...] Aortic Root 3.40 cm F: 2.7 - 3.3CMVD25 mL Aortic Root Index1.2 cm/m2LV Oxqoce740.35 mL F: 46 - 106 Ascending Aorta 3.87 cm F: 2.3 - 3.1LV Volume Index47.76 mL/m2 F: 29 - 61 Ascending Aorta Index: 1.4 cm/m2LA Lzqmys44.6 mL Left Atrium 4.80 cm F: 2.7 [...] Ratio1.54MV PHT68.27 ms MVA PHT3.22 cm2MV [place] 970.89 cm/s2 MV Decel. Yflh034.71 (160-240 ms) Pulmonary Valve PV Peak Velocity0.8 (0.5-1.5 m/s)PV maxPG2.8 mmHg PV Vmax0.8 m/s Tricuspid Valve TR P. Velocity2.62 m/sRAP Estimate3 mmHg RVSP30.43 mmHgTR maxPG 27.43 mmHg [facility] BMP FASTINGon 03-22-2021 Creatinine [Mass/Vol] 0.66 mg/dL Normal 0.52-1.04 [facility] Comment on above: Performed By: #### C OVID #### Testing performed at [address] [address] EST. GFR, >60 Normal [facility] Comment on above: Performed By: #### C OVID #### Testing performed at [address] [address] EST. GFR,Non >60 Normal [facility] Comment on above: Performed By: #### C OVID #### Testing performed at [address] [address] GFR Information Average GFR for 50-5 9 years old = 93. Normal [facility] Comment on above: Result Comment: Newspaper Correspondent randi Kidney disease, GFR = <60. Kidney failure, GFR = <15. The GFR estimate is not adjusted for extreme body surface area or acute process, nor has it been validated for women or ethnic groups other than and . Performed By: #### C OVID #### Testing performed at [address] [address] Urea nitrogen [Mass/Vol] 14 mg/dL Normal 7-20 [facility] Comment on above: Performed By: #### C OVID #### Testing performed at [address] [address] Anion gap [Moles/Vol] 11 mmol/L Normal 8-16 [facility] Comment on above: Performed By: #### C OVID #### Testing performed at [address] [address] Calcium [Mass/Vol] 8.8 mg/dL Normal 8.4-10.2 [facility] Comment on above: Performed By: #### C OVID #### Testing performed at [address] [address] Chloride [Moles/Vol] 100 mmol/L Normal 98-107 [facility] Comment on above: Performed By: #### C OVID #### Testing performed at [address] [address] CO2 [Moles/Vol] 27 mmol/L Normal 22-30 [facility] Comment on above: Performed By: #### C OVID #### Testing performed at [address] [address] Glucose [Mass/Vol] 91 mg/dL Normal 70-100 [facility] Comment on above: Result Comment: NORMAL <100 mg/dL PREDIABETES 101-126 mg/dL DIABETES 126 mg/dL or higher Performed By: #### C OVID #### Testing performed at [address] [address] Potassium [Moles/Vol] 4.0 mmol/L Normal 3.5-5.1 [facility] Comment on above: Performed By: #### C OVID #### Testing performed at [address] [address] Sodium [Moles/Vol] 138 mmol/L Normal 136-145 [facility] Comment on above: Performed By: #### C OVID #### Testing performed at [address] [place] [address] FAX REQUESTon 03-22-2021 FAX TO [phone] Normal [facility] Comment on above: Performed By: #### C OVID #### Testing performed at [address] [place] [address] LIPID PROFILEon 03-22-2021 Cholesterol [Mass/Vol] 148 mg/dL Normal 100-199 [facility] Comment on above: Performed By: #### C OVID #### Testing performed at [address] [address] Cholesterol in HDL [Mass/Vol] 46 mg/dL Normal 40-60 [facility] Comment on above: Performed By: #### C OVID #### Testing performed at [address] [address] Cholesterol in LDL [Mass/Vol] 90 mg/dL Normal 0-100 [facility] Comment on above: Performed By: #### C OVID #### Testing performed at [address] [address] Cholesterol in VLDL [Mass/Vol] 12 mg/dL Normal 5.0-25.0 [facility] Comment on above: Performed By: #### C OVID #### Testing performed at [address] [address] Cholesterol.total/Chol esterol in HDL [Mass ratio] 3.22 {ratio} Normal [facility] Comment on above: Result Comment: RISK TOTAL/HDL RATIO MEN WOMEN 1/2 AVERAGE 3.43 3.27 AVERAGE 4.97 4.44 2X AVERAGE 9.55 7.05 3X AVERAGE 23.99 11.04 Performed By: #### C OVID #### Testing performed at [address] [address] Triglyceride [Mass/Vol] 59 mg/dL Normal <150 [facility] Comment on above: Performed By: #### C OVID #### Testing performed at [address] [address] Laboratory - Chemistry and C hemistry - challengeon 03-21-2021 Calcium [Mass/Vol] 8.8 mg/dL Normal 8.4 - 10. 6 mg/dL [facility] [address] [facility] [employer] Chloride [Moles/Vol] 100 mmol/L Normal 98 - 11 0 mmol/L [place] [address] [facility] [employer] Cholesterol [Mass/Vol] 148 mg/dL Normal 0 - 2 00 mg/dL [employer] [facility] [employer] Cholesterol in HDL [Mass/Vol] 46 mg/dL Normal 40 - 60 mg/dL [employer] [employer] Cholesterol in LDL [Mass/Vol] 90 mg/dL Normal 50.0 - 130.0 mg/dL [facility] [employer] [employer] Cholesterol in VLDL [Mass/Vol] 12 mg/dL Normal [employer] [facility] [employer] [employer] Cholesterol.total/Chol esterol in HDL [Mass ratio] 3.22 {ratio} Normal 0 - 5.0 [facility]; [facility], [facility] CO2 [Moles/Vol] 27 {kenya/L} Normal 22.0 - 32.0 {kenya/L} [facility]; [facility], [facility] Creatinine [Mass/Vol] 0.66 mg/dL Normal 0.5 - 1.2 mg/dL [facility]; [facility], [facility] Glucose [Mass/Vol] 91 mg/dL Normal 60 - 100 mg/dL [facility]; [facility], [facility] Potassium [Moles/Vol] 4.0 mmol/L Normal 3.5 - 5.0 mmol/L [facility]; [facility], [facility] Sodium [Moles/Vol] 138 mmol/L Normal 136 - 145 mmol/L [facility]; [facility], [facility] Triglyceride [Mass/Vol] 59 mg/dL Normal 40 - 150 mg/dL [facility]; [facility], [facility] Urea nitrogen [Mass/Vol] 14 mg/dL Normal 8 - 22 mg/dL [facility]; [facility], [facility] Urea nitrogen/Creatinine [Mass ratio] - Normal 0 - 30 [facility]; [facility] No Panel Informationon 03-21 ELECTROLYTE BALANCE - Normal [facility]; [place] [address] [facility], [facility] GFR >60 Normal [facility]; [facility], [facility] GFR2 >60 Normal [facility]; [facility] Laboratory - Chemistry and C hemistry - challengeon 03-14-2021 Albumin [Mass/Vol] 3.9 g/dL Normal 3.6 - 5.1 g/dL [facility]; [facility], [facility] Albumin/Globulin [Mass ratio] 1.3 {ratio} Normal 1.0 - 2.5 [facility]; [place] [address] [facility], [facility] ALP [Catalytic activity/Vol] 106 U/L Normal 37 - 153 U/L [facility], [facility] ALT [Catalytic activity/Vol] 15 U/L Normal 6 - 29 U/L [facility]; [facility], [facility]. AST [Catalytic activity/Vol] 15 U/L Normal 10 - 35 U/L [facility].; [facility], [facility]. Bilirubin [Mass/Vol] 0.3 mg/dL Normal 0.2 - 1 .2 mg/dL [facility], [facility].; [facility], [facility]. Calcium [Mass/Vol] 8.9 mg/dL Normal 8.6 - 10. 4 mg/dL [facility].; [facility], [facility]. Chloride [Moles/Vol] 103 mmol/L Normal 98 - 11 0 mmol/L [facility].; [facility], [facility]. CO2 [Moles/Vol] 28 mmol/L Normal 20 - 32 mmol/L [facility].; [facility], [facility]. Creatinine [Mass/Vol] 0.72 mg/dL Normal 0.50 - 1.05 mg/dL [facility], [facility].; [facility], [facility]. GFR/1.73 sq M.predicted among blacks MDRD (S/P/Bld) [Vol rate/Area] 111 mL/min/{1.73_m2} Normal [facility].; [facility], [facility] Glucose [Mass/Vol] 108 mg/dL Abnormal 65 - 99 mg/dL [facility], [facility].; [facility], [facility]. Natriuretic peptide B (Bld) [Mass/Vol] 45 pg/mL Normal [facility].; [facility], [facility] Potassium [Moles/Vol] 4.3 mmol/L Normal 3.5 - 5.3 mmol/L [facility].; [facility], [facility]. Protein [Mass/Vol] 7.0 g/dL Normal 6.1 - 8.1 g/dL [facility], [facility].; [facility], [facility]. Sodium [Moles/Vol] 138 mmol/L Normal 135 - 146 mmol/L [facility], [facility].; [facility], [facility]. TSH Qn 2.90 m[IU]/L Normal [facility].; [facility], [facility] Urea nitrogen [Mass/Vol] 13 mg/dL Normal 7 - 25 mg/dL [facility].; [facility] Laboratory - Hematology and Cell countson 03-14-2021 Basophils (Bld) [#/Vol] 0.03 10*3/uL Normal 0 - 200 {cells/uL} [facility].; [facility], [facility] Basophils/100 WBC (Bld) 0.4 % Normal [facility].; [facility], [facility] Eosinophils (Bld) [#/Vol] 0.644 10*3/uL Abnormal 15 - 500 {cells/uL} [facility].; [facility], [facility] Eosinophils/100 WBC (Bld) 8.7 % Normal [facility].; [place] [address] [facility], [facility] Erythrocyte distribution width (RBC) [Ratio] 16.9 % Abnormal 11.0 - 15.0 % [facility].; [place] [address] [facility], [facility] Hematocrit (Bld) [Volume fraction] 35.2 % Normal 35.0 - 45.0 % [facility].; [place] [address] [facility], [facility] Hemoglobin (Bld) [Mass/Vol] 10.7 g/dL Abnormal 11.7 - 15.5 g/dL [facility].; [facility], [facility]. Lymphocytes (Bld) [#/Vol] 1.221 10*3/uL Normal 850 - 3900 {cells/uL} [facility], [facility].; [place] [address] [facility], [facility] Lymphocytes/100 WBC (Bld) 16.5 % Normal [facility].; [place] [employer], [facility]. MCH (RBC) [Entitic mass] 22.1 pg Abnormal 27.0 - 33.0 pg [facility].; [place] [address] [facility], [facility]. MCHC (RBC) [Mass/Vol] 30.4 g/dL Abnormal 32.0 - 36.0 g/dL [facility], [facility].; [place] [address] [facility], [facility]. MCV (RBC) [Entitic vol] 72.7 fL Abnormal 80.0 - 100.0 fL [facility].; [place] [address] [facility], [facility]. Monocytes (Bld) [#/Vol] 0.511 10*3/uL Normal 200 - 950 {cells/uL} [facility].; [place] [email or web address] Monocytes/100 WBC (Bld) 6.9 % Normal [facility]; [facility] Neutrophils (Bld) [#/Vol] 4.995 10*3/uL Normal 1500 - 7800 {cells/uL} [facility].; [place] [employer], [employer] Neutrophils/100 WBC (Bld) 67.5 % Normal [facility]; [place] [email or web address] Platelet mean volume (Bld) [Entitic vol] 10.0 fL Normal 7.5 - 12.5 fL [facility].; [place] [email or web address] Platelets (Bld) [#/Vol] 258 10*3/uL Normal 140 - 400 [facility]; [place] [employer], [employer] RBC (Bld) [#/Vol] 4.84 10*6/uL Normal 3.80 - 5.1 0 {Million/uL} [facility].; [place] [email or web address]. WBC (Bld) [#/Vol] 7.4 10*3/uL Normal 3.8 - 10.8 [facility].; [place] [employer] [facility] No Panel Informationon 03-14 BUN/CREATININE RATIO NOT APPLICABLE Normal 6 - 22 [facility]; [place] [address] [facility] eGFR NON-AFR. JAMAICAN 96 Normal [facility]; [place] [employer] [facility] GLOBULIN 3.1 Normal 1.9 - 3.7 [facility].; [place] [employer] [facility] Basic Metabolic Panelon 07-0 Anion gap [Moles/Vol] 7 mmol/L [place] Calcium [Mass/Vol] 8.5 mg/dL 8.4 - 10. 4 mg/dL [place] Chloride [Moles/Vol] 106 mmol/L 98 - 10 7 mmol/L [place] CO2 [Moles/Vol] 24 mmol/L 22 - 30 mmol/L [place] Creatinine [Mass/Vol] 0.67 mg/dL 0.52 - 1.25 mg/dL [place] EGFR IF NonAfrican Haitian >90.0 >60 mL/min [place] Comment on above: KDIGO guidelines pro [...] MDRD (S/P/Bld) [Vol rate/Area] mL/min/{1.73_m2} >60 mL/min [place] Glucose [Mass/Vol] 101 mg/dL High 70 - 100 mg/dL [place] Interpretation and review of laboratory results Abnormal [place] Potassium [Moles/Vol] 4.2 mmol/L 3.5 - 5.1 mmol/L [place] Sodium [Moles/Vol] 137 mmol/L 135 - 145 mmol/L [place] Urea nitrogen [Mass/Vol] 14 mg/dL 7 - 20 mg/dL [place] Test Performed by [facility], [address] [place] [id number] [place], [place] CT Abdomen Pelvis Wo Contras ton 06-01-2020 Patient Name: JESUSITA ENGLAND ---CT--- Exam Date/Time 06/01/2020 01:53:[address] Abdomen/Pelvis (No PO, No IV) Ordering Physician KIMBERLY SAVAGE RYAN Accession Number [id number] CPT4 Codes 09054 (CT Abdomen/Pelvis (No PO, No IV)) Reason [...] R Transcribed Date and Time: 06/01/2020 2:10 [place], [facility] Incoming Radiology Results From [facility] - 06/01/2020 2:15 AM EDT Patient Name: JESUSITA ENGLAND ---CT--- Exam Date/Time 06/01/2020 01:53:[address] Abdomen/Pelvis (No PO, No IV) Ordering Physician KIMBERLY SAVAGE RYAN Accession Number [id number] CPT4 Codes 83114 (CT Abdomen/Pelvis (No PO, No IV)) Reason [...] R Transcribed Date and Time: 06/01/2020 2:10 [place] Hemogram (CBC)on 06-01-2020 Erythrocyte distribution width (RBC) [Ratio] 19.4 % High 11.5 - 14.5 % [place] Hematocrit (Bld) [Volume fraction] 33.5 % Low 35 - 47 % [place] Hemoglobin (Bld) [Mass/Vol] 10.5 g/dL Low 11.7 - 16 g/dL [place] Interpretation and review of laboratory results Abnormal [place] MCH (RBC) [Entitic mass] 21.7 pg Low 26 - 34 pg [place] MCHC (RBC) [Mass/Vol] 31.4 % Low 32 - 36 % [place] MCV (RBC) [Entitic vol] 69.1 fL Low 79 - 98 fL [place] Platelet mean volume (Bld) [Entitic vol] 8.5 fL 7.4 - 10.4 fL [place] Platelets (Bld) [#/Vol] 232 10*3/uL 140 - 440 10*3/uL [place] RBC (Bld) [#/Vol] 4.86 10*6/uL 3.8 - 5.2 10*6/uL [place] WBC (Bld) [#/Vol] 7.2 10*3/uL 3.6 - 10.7 10*3/uL [place] Test Performed by [id number] [place] [address] Otheron 06-01-2020 Test Performed by [id number] [place] [address] , Urineon 0 Beta HCG ( test) Ql (U) Negative Negative [place] Comment on above: is the mos t common reason for HCG in urine, although choriocarcinoma, hydatidiform mole, and certain nontropho- blastic malignancies also result in detectable urinary HCG levels. Sensitivity = 20mIU/mL. Urinalysison 06-01-2020 Appearance (U) Clear Clear [place] Comment on above: . Bilirubin Urine Negative Negative mg/dL [place] Comment on above: . Color (U) Yellow Lt. Yellow [place] Comment on above: . Glucose, Ur Normal Normal (<70) mg/dL [place] Comment on above: . Ketones Ql (U) Negative Negative mg/dL [place] Comment on above: . LEUKOCYTES, UA Negative Negative [place]/uL [place] Comment on above: . Nitrite, Urine Negative Negative [place] Comment on above: . Occult Blood,Urine Negative Negative mg/dL [place] Comment on above: . pH (U) 5.5 [pH] [place] Comment on above: . Protein (U) [Mass/Vol] Negative Negat emmy mg/dL [place] Comment on above: . Specific Diggs, Urine 1.023 [place] Comment on above: . Urobilinogen, Urine Normal Normal ( 0-1) mg/dL [place] Comment on above: . CHEST PA AND LATERALon 03-01 CHEST PA AND LATERAL Final ReportAccession No: [id number] Performed: Mar 01 2018 2:30PMExamination: CHEST [...] GRACIELA HUIZAR D.O.Trans: md : cc: Normal [facility] Vital Signs Date Time Vital Sign Value Performing Clinician Facility 06-09-2025 13:160400 Body height 160.66 cm [facility], [facility].; [facility] [facility], [facility]. 06-09-2025 13:16-0400 Body mass index (BMI) [Ratio] 92.62 kg/m2 [facility], [facility].; [facility], [facility]. 06-09-2025 13:16-040 Body surface area Derived from formula 2.93 m2 Ceci Suarez OCCUPANCY SPECIALIST [facility], [facility].; [facility], [facility]. 06-09-2025 13:16040 Body weight 239.05 kg [facility], [facility].; [facility], [facility]. 06-09-2025 13:16-040 Diastolic blood pressure 82 mm[Hg] [facility], [facility].; [facility], [facility]. Comment on above: Patient Position: Sitting; Cuff Location : Left Arm; Cuff Size: Standard 06-09-2025 13:16-0400 Heart rate 79 /min Ceci Powersho HUDSON [employer]. Comment on above: Pattern: Regular 06-09-2025 13:16-0400 Systolic blood pressure 129 mm[Hg] Ceci Suarez BECCA [employer], [employer]. Comment on above: Patient Position: Sitting; Cuff Location : Left Arm; Cuff Size: Standard 11-11-2024 08:20-0500 Body weight 232.65 kg Yamile Floodlight Work Phone: [facility] 11-11-2024 08:20-0500 Diastolic blood pressure 77 mm[Hg] Yamile Kymeta DO Work Phone: [facility] 11-11-2024 08:20-0500 Heart rate 93 /min Yamile Kymeta DO Work Phone: [facility] 11-11-2024 08:20-0500 Systolic blood pressure 130 mm[Hg] Yamile Kymeta DO Work Phone: [facility] 06-13-2024 15:06-0400 Body height 160.66 cm Alondra Agusto Crews PA-C Work Phone: [employer] 06-13-2024 15:06-0400 Body mass index (BMI) [Ratio] 88.4 kg/m2 Alondra Agusto Crews PA-C Work Phone: [employer] 06-13-2024 15:06-0400 Body surface area Derived from formula 2.87 m2 Alondra Agusto Crews PA-C Work Phone: [employer] 06-13-2024 15:06-0400 Body weight 228.16 kg Alondra Agusto Crews PA-C Work Phone: [employer] 06-13-2024 15:06-0400 Diastolic blood pressure 75 mm[Hg] Alondra Agusto Crews PA-C Work Phone: [place] [address] [facility]!.; [employer]. Comment on above: Patient Position: Sitting; Cuff Location : Left Arm; Cuff Size: Standard 06-13-2024 15:06-0400 Heart rate 76 /min Alondra Agusto ZABALA-Jennifer Work Phone: [facility].; [employer]. Comment on above: Pattern: Regular 06-13-2024 15:06-0400 Systolic blood pressure 138 mm[Hg] Alondra Liz Mars ZABALA-Jennifer Work Phone: [place] [email or web address].; [employer]. Comment on above: Patient Position: Sitting; Cuff Location : Left Arm; Cuff Size: Standard 05-12-2024 10:07-0400 Body height 165.1 cm Jazlyn Marie LPN [facility].; [employer] 05-12-2024 10:07-0400 Body mass index (BMI) [Ratio] 81.21 kg/m2 Jazlyn Marie [facility] [address] [facility].; [employer] 05-12-2024 10:07-0400 Body surface area Derived from formula 2.89 m2 Jazlyn Marie LPN [place] [address] [facility].; [employer], [employer]. 05-12-2024 10:07-0400 Body weight 221.36 kg Jazlyn Marie OCCUPANCY SPECIALIST [place] [address] [facility].; [employer] 05-12-2024 10:07-0400 Diastolic blood pressure 78 mm[Hg] Jazlyn Marie LPN [facility].; [employer]. Comment on above: Patient Position: Sitting; Cuff Location : Right Arm; Cuff Size: Standard 05-12-2024 10:07-0400 Heart rate 76 /min Jazlyn Marie LPN [place] [address] [facility].; [employer]. Comment on above: Pattern: Regular 05-12-2024 10:07-0400 Systolic blood pressure 130 mm[Hg] Jazlyn Marie LPN [place] [address] [facility] [employer]. Comment on above: Patient Position: Sitting; Cuff Location : Right Arm; Cuff Size: Standard 04-15-2024 10:34-0400 Body temperature 97.8 [degF] Alondra Agusto Crews PA-C Work Phone: [facility].; [employer] 04-15-2024 10:34-0400 Diastolic blood pressure 67 mm[Hg] Alondra Agusto Crews PA-C Work Phone: [facility].; [employer] Comment on above: Patient Position: Sitting; Cuff Location : Left Arm; Cuff Size: Standard 04-15-2024 10:34-0400 Heart rate 70 /min Alondra Agusto Crews PA-C Work Phone: [facility].; [employer]. Comment on above: Pattern: Regular 04-15-2024 10:34-0400 Inhaled oxygen concentration 21 % Alondra Liz Crews PA-C Work Phone: [facility]!.; [employer]. Comment on above: Room air 04-15-2024 10:34-0400 SaO2% (BldA) [Mass fraction] 98 % Alondra Agusto Crews PA-C Work Phone: [facility].; [employer] 04-15-2024 10:34-0400 Systolic blood pressure 115 mm[Hg] Alondra Agusto Crews PA-C Work Phone: [facility]; [employer]. Comment on above: Patient Position: Sitting; Cuff Location : Left Arm; Cuff Size: Standard 04-08-2024 15:38-0400 Body temperature 98 [degF] PA Alondra Piedraer PA Work Phone: [facility] 04-08-2024 15:38-0400 Diastolic blood pressure 78 mm[Hg] PA Alondra Piedraer PA Work Phone: [facility] 04-08-2024 15:38-0400 Heart rate 97 /min PA Alondra Crews PA Work Phone: [facility] 04-08-2024 15:38-0400 Respiratory rate 16 /min PA Alondra Crews PA Work Phone: [facility] 04-08-2024 15:38-0400 SaO2% (BldA) [Mass fraction] 96 % PA Alondra Crews PA Work Phone: [facility] 04-08-2024 15:38-0400 Systolic blood pressure 140 mm[Hg] PA Alondra Crews PA Work Phone: [facility] 04-06-2024 14:06-0400 Body height 165.1 cm PA Alondra Crews PA Work Phone: [facility] 04-06-2024 14:06-0400 Body weight 227.2 kg PA Alondra Crews PA Work Phone: [facility] 04-04-2024 23:36-0400 Body mass index (BMI) [Ratio] 83.3 kg/m2 PA Alondra Crews PA Work Phone: [facility] 04-04-2024 23:00-0400 Body temperature 98 [degF] [facility] 04-04-2024 23:00-0400 Diastolic blood pressure 75 mm[Hg] [facility] 04-04-2024 23:00-0400 Heart rate 89 /min [facility] 04-04-2024 23:00-0400 Respiratory rate 22 /min [facility] 04-04-2024 23:00-0400 SaO2% (BldA) [Mass fraction] 94 % [facility] 04-04-2024 23:00-0400 Systolic blood pressure 114 mm[Hg] [facility] 04-04-2024 19:07-0400 Body mass index (BMI) [Ratio] 87.2 kg/m2 [facility] 04-04-2024 19:07-0400 Body weight 230.5 kg [facility] 04-04-2024 19:06-0400 Body height 162.56 cm [facility] 04-01-2024 10:51-0400 Body height 165.1 cm [facility].; [facility] 04-01-2024 10:51-0400 Body mass index (BMI) [Ratio] 84.04 kg/m2 [facility].; [facility]. 04-01-2024 10:51-0400 Body surface area Derived from formula 2.93 m2 [facility].; [facility] 04-01-2024 10:51-0400 Body weight 229.07 kg [facility].; [facility] 04-01-2024 10:51-0400 Diastolic blood pressure 79 mm[Hg] [facility].; [place] [address] [facility], [facility]. Comment on above: Patient Position: Sitting; Cuff Location : Left Arm; Cuff Size: Standard 04-01-2024 10:51-0400 Heart rate 73 /min [facility].; [facility]. Comment on above: Pattern: Regular 04-01-2024 10:51-0400 Inhaled oxygen concentration 21 % [facility].; [facility], [facility]. Comment on above: Room air 04-01-2024 10:51-0400 SaO2% (BldA) [Mass fraction] 95 % [facility].; [facility], [facility]. 04-01-2024 10:51-0400 Systolic blood pressure 131 mm[Hg] [facility].; [place] [address] [facility]. Comment on above: Patient Position: Sitting; Cuff Location : Left Arm; Cuff Size: Standard 09-04-2023 10:52-0400 Body height 162.6 cm Helder Tavera MD Work Phone: [facility] [employer] 09-04-2023 10:52-0400 Body mass index (BMI) [Ratio] 80.16 kg/m2 Helder Tavera MD Work Phone: [facility] [employer] 09-04-2023 10:52-0400 Body temperature 97 [degF] Helder Tavera MD Work Phone: [facility] [employer] 09-04-2023 10:52-0400 Body weight 211.83 kg Helder Tavera MD Work Phone: [facility] [employer] 09-04-2023 10:52-0400 Diastolic blood pressure 86 mm[Hg] Helder Tavera MD Work Phone: [facility] [employer] 09-04-2023 10:52-0400 Heart rate 70 /min Helder Tavera MD Work Phone: [facility] [employer] 09-04-2023 10:52-0400 SaO2% (BldA) [Mass fraction] 96 % Helder Tavera MD Work Phone: [facility] [employer] 09-04-2023 10:52-0400 Systolic blood pressure 138 mm[Hg] Helder Tavera MD Work Phone: [facility] [employer] 08-26-2023 11:19-0400 Body height 165.1 cm Jazlyn Marie [facility], [facility].; [employer] [address] [facility]. 08-26-2023 11:19-0400 Body mass index (BMI) [Ratio] 78.38 kg/m2 Jazlyn Marie [facility], [facility].; [facility], [facility]. 08-26-2023 11:19-0400 Body surface area Derived from formula 2.85 m2 Jazlyn Marie OCCUPANCY SPECIALIST [facility], [facility].; [facility], [facility]. 08-26-2023 11:19-0400 Body weight 213.65 kg Jazlyn Marie [facility], [facility].; [facility] [facility]. 08-26-2023 11:19-0400 Diastolic blood pressure 82 mm[Hg] Jazlyn Marie [facility], [facility].; [facility] [facility], [facility]. Comment on above: Patient Position: Sitting; Cuff Location : Left Arm; Cuff Size: Standard 08-26-2023 11:19-0400 Heart rate 84 /min Jazlyn Marie OCCUPANCY SPECIALIST [facility], [facility].; [facility] Comment on above: Pattern: Regular 08-26-2023 11:19-0400 Systolic blood pressure 132 mm[Hg] Jazlyn Marie LPN [facility], [facility].; [facility]. Comment on above: Patient Position: Sitting; Cuff Location : Left Arm; Cuff Size: Standard 08-21-2023 11:58-0400 Body temperature 97 [degF] PA Alondra Crews PA Work Phone: [facility] 08-21-2023 11:58-0400 Diastolic blood pressure 58 mm[Hg] PA Alondra Crews PA Work Phone: [phone] [place] [address] 08-21-2023 11:58-0400 Heart rate 68 /min PA Alondra Crews PA Work Phone: [phone] [place] [address] 08-21-2023 11:58-0400 Respiratory rate 18 /min PA Alondra Crews PA Work Phone: [phone])933-546575 [place] [address] 08-21-2023 11:58-0400 SaO2% (BldA) [Mass fraction] 97 % PA Alondra Crews PA Work Phone: [phone] [place] [address] 08-21-2023 11:58-0400 Systolic blood pressure 120 mm[Hg] PA Alondra Crews PA Work Phone: [facility] 08-18-2023 13:13-0400 Body height 162.56 cm PA Alondra Crews PA Work Phone: [facility] 08-18-2023 13:13-0400 Body weight 211.3 kg PA Alondra Crews PA Work Phone: [facility] 08-18-2023 01:42-0400 Body mass index (BMI) [Ratio] 79.9 kg/m2 PA Alondra Rcews PA Work Phone: [facility] 08-18-2023 00:51-0400 Body temperature 101.2 [degF] PA Alondra Crews PA Work Phone: [facility] 08-18-2023 00:51-0400 Diastolic blood pressure 62 mm[Hg] PA Alondra Crews PA Work Phone: [facility] 08-18-2023 00:51-0400 Heart rate 89 /min PA Alondra Crews PA Work Phone: [facility] 08-18-2023 00:51-0400 Respiratory rate 20 /min PA Alondra Crews PA Work Phone: [facility] 08-18-2023 00:51-0400 SaO2% (BldA) [Mass fraction] 94 % PA Alondra Crews PA Work Phone: [facility] 08-18-2023 00:51-0400 Systolic blood pressure 107 mm[Hg] PA Alondra Crews PA Work Phone: [facility] 08-17-2023 23:44-0400 Body mass index (BMI) [Ratio] 82.3 kg/m2 PA Alondra Crews PA Work Phone: [facility] 08-17-2023 23:44-0400 Body weight 217.7 kg PA Alondra Crews PA Work Phone: [facility] 08-17-2023 22:20-0400 Body height 162.56 cm PA Alondra Crews PA Work Phone: [facility] 07-31-2023 13:32-0400 Body height 165.1 cm Jazlyn Marie LPN [facility], [facility]. 07-31-2023 13:32-0400 Body mass index (BMI) [Ratio] 77.38 kg/m2 Jazlyn Marie LPN [facility], [facility].; [facility], [facility]. 07-31-2023 13:32-0400 Body surface area Derived from formula 2.83 m2 Jazlyn Marie LPN [facility], [facility].; [facility], [facility]. 07-31-2023 13:32-0400 Body temperature 99.3 [degF] Jazlyn Marie LPN [facility], [facility].; [facility], [facility]. Comment on above: Method: Tympanic 07-31-2023 13:32-0400 Body weight 210.92 kg Jazlyn Ashli Marie LPN [facility], [facility].; [facility]. 07-31-2023 13:32-0400 Diastolic blood pressure 79 mm[Hg] Jazlyn Marie LPN [facility], [facility].; [facility]. Comment on above: Patient Position: Sitting; Cuff Location : Left Arm; Cuff Size: Standard 07-31-2023 13:32-0400 Heart rate 84 /min Jazlyngaudencio Marie LPN [facility], [facility].; [place] [address] [facility], [employer]. Comment on above: Pattern: Regular 07-31-2023 13:32-0400 Systolic blood pressure 132 mm[Hg] Jazlyngaudencio Marie LPN [facility], [facility].; [facility], [facility]. Comment on above: Patient Position: Sitting; Cuff Location : Left Arm; Cuff Size: Standard 07-31-2023 09:00-0400 Body temperature 97.8 [degF] PA Alondra Crews PA Work Phone: [facility] 07-31-2023 09:00-0400 Diastolic blood pressure 90 mm[Hg] PA Alondra Crews PA Work Phone: [facility] 07-31-2023 09:00-0400 Heart rate 82 /min PA Alondra Crews PA Work Phone: [facility] 07-31-2023 09:00-0400 Respiratory rate 16 /min PA Alondra Crews PA Work Phone: [facility] 07-31-2023 09:00-0400 SaO2% (BldA) [Mass fraction] 95 % PA Alondra Crews PA Work Phone: [facility] 07-31-2023 09:00-0400 Systolic blood pressure 108 mm[Hg] PA Alondra Crews PA Work Phone: [facility] 07-31-2023 04:01-0400 Body mass index (BMI) [Ratio] 82 kg/m2 PA Alondra Crews PA Work Phone: [facility] 07-31-2023 04:01-0400 Body weight 223.4 kg PA Alondra Crews PA Work Phone: [facility] 07-29-2023 10:57-0400 Body height 165 cm PA Alondra Crews PA Work Phone: [facility] 07-25-2023 02:59-0400 Body height 165 cm PA Alondra Crews PA Work Phone: [facility] 07-25-2023 02:59-0400 Body mass index (BMI) [Ratio] 82.1 kg/m2 PA Alondra Crews PA Work Phone: [facility] 07-25-2023 02:59-0400 Body weight 223.6 kg PA Alondra Crews PA Work Phone: [phone] [place] [address] 07-25-2023 01:00-0400 Body temperature 98.4 [degF] PA Alondra Crews PA Work Phone: [facility] 07-25-2023 01:00-0400 Diastolic blood pressure 71 mm[Hg] PA Alondra Crews PA Work Phone: [facility] 07-25-2023 01:00-0400 Heart rate 72 /min PA Alondra Crews PA Work Phone: [facility] 07-25-2023 01:00-0400 Respiratory rate 16 /min PA Alondra Crews PA Work Phone: [facility] 07-25-2023 01:00-0400 SaO2% (BldA) [Mass fraction] 97 % PA Alondra Crews PA Work Phone: [facility] 07-25-2023 01:00-0400 Systolic blood pressure 131 mm[Hg] PA Alondra Crews PA Work Phone: [facility] 07-16-2023 11:01-0400 Body height 165.1 cm Nora Palma LPN [facility], [facility].; [facility]. 07-16-2023 11:01-0400 Body mass index (BMI) [Ratio] 77.81 kg/m2 [facility], [facility]. 07-16-2023 11:01-0400 Body surface area Derived from formula 2.84 m2 [facility], [facility].; [facility], [facility]. 07-16-2023 11:01-0400 Body temperature 98.2 [degF] [facility].; [place] [address] [facility], [employer]. Comment on above: Method: Tympanic 07-16-2023 11:01-0400 Body weight 212.1 kg [facility].; [facility]. 07-16-2023 11:01-0400 Diastolic blood pressure 85 mm[Hg] [facility].; [place] [address] [facility], [employer]. Comment on above: Patient Position: Sitting; Cuff Location : Right Arm; Cuff Size: Large 07-16-2023 11:01-0400 Heart rate 69 /min [facility].; [place] [address] [facility], [employer]. Comment on above: Pattern: Regular 07-16-2023 11:01-0400 Inhaled oxygen concentration 20 % [facility], [facility].; [place] [employer], [employer]. Comment on above: Room air 07-16-2023 11:01-0400 Inhaled oxygen concentration 21 % [facility], [facility].; [place] [address] [facility], [employer]. Comment on above: Room air 07-16-2023 11:01-0400 SaO2% (BldA) [Mass fraction] 94 % [facility], [facility].; [place] [email or web address]. 07-16-2023 11:01-0400 Systolic blood pressure 125 mm[Hg] [facility], [facility].; [place] [employer], [employer]. Comment on above: Patient Position: Sitting; Cuff Location : Right Arm; Cuff Size: Large 07-08-2023 10:16-0400 Body temperature 97.8 [degF] [facility] 07-08-2023 10:16-0400 Diastolic blood pressure 46 mm[Hg] [facility] 07-08-2023 10:16-0400 Heart rate 78 /min [facility] 07-08-2023 10:16-0400 Respiratory rate 16 /min [facility] 07-08-2023 10:16-0400 SaO2% (BldA) [Mass fraction] 97 % [facility] 07-08-2023 10:16-0400 Systolic blood pressure 133 mm[Hg] [facility] 07-08-2023 08:20-0400 Body mass index (BMI) [Ratio] 82.7 kg/m2 [facility] 07-08-2023 08:20-0400 Body weight 218.6 kg [facility] 07-08-2023 08:16-0400 Body height 162.56 cm [facility] 2023 14:54-0400 Body temperature 98.3 [degF] Carlo Lyons OCCUPANCY SPECIALIST [facility] [employer] 2023 14:54-0400 Body weight 223.62 kg Carlo Lyons OCCUPANCY SPECIALIST [facility] [address] [facility], [facility] [employer] 2023 14:54-0400 Diastolic blood pressure 74 mm[Hg] Carlo Lyons OCCUPANCY SPECIALIST [facility] [employer], [employer]. Comment on above: Patient Position: Sitting; Cuff Location : Left Arm; Cuff Size: Standard 2023 14:54-0400 Heart rate 66 /min Carlo Lyons LPN [facility] [address] [facility], [facility] [employer], [employer]. Comment on above: Pattern: Regular 2023 14:54-0400 Systolic blood pressure 125 mm[Hg] Carlo Lyons OCCUPANCY SPECIALIST [facility] [employer], [employer]. Comment on above: Patient Position: Sitting; Cuff Location : Left Arm; Cuff Size: Standard 02-06-2023 11:28-0500 Body temperature 98.6 [degF] Carlo Lyons OCCUPANCY SPECIALIST [place] [address] [facility]. 02-06-2023 11:28-0500 Body weight 227.25 kg Carlo Lyons LPN [facility], [facility].; [facility]. 02-06-2023 11:28-0500 Diastolic blood pressure 76 mm[Hg] Carlo Lyons LPN [facility].; [facility], [facility]. Comment on above: Patient Position: Sitting; Cuff Location : Left Arm; Cuff Size: Standard 02-06-2023 11:28-0500 Heart rate 71 /min Carlo Lyons LPN [facility], [facility].; [facility], [facility]. Comment on above: Pattern: Regular 02-06-2023 11:28-0500 Systolic blood pressure 154 mm[Hg] Carlo Lyons LPN [facility], [facility].; [facility], [facility]. Comment on above: Patient Position: Sitting; Cuff Location : Left Arm; Cuff Size: Standard 02-02-2023 08:43-0500 Body height 162.56 cm Referring Provider Unknown [facility] DO Work Phone: 02-02-2023 08:43-0500 Body mass index (BMI) [Ratio] 85.83 kg/m2 Referring Provider Unknown GN[facility] DO Work Phone: 02-02-2023 08:43-0500 Body surface area Derived from formula 2.89 m2 Referring Provider Unknown YZ[facility] DO Work Phone: 02-02-2023 08:43-0500 Body weight 226.8 kg Referring Provider Unknown UQ[facility] DO Work Phone: 02-02-2023 08:43-0500 Diastolic blood pressure 81 mm[Hg] Referring Provider Unknown GC[facility] DO Work Phone: 02-02-2023 08:43-0500 Heart rate 76 /min Referring Provider Unknown LK[facility] DO Work Phone: 02-02-2023 08:43-0500 Systolic blood pressure 146 mm[Hg] Referring Provider Unknown IZ[facility] DO Work Phone: 09-10-2022 11:00-0400 Body height 165.1 cm Ashley Torres MA [facility].; [facility]. 09-10-2022 11:00-0400 Body mass index (BMI) [Ratio] 82.87 kg/m2 Ashley Torres MA [facility].; [facility]. 09-10-2022 11:00-0400 Body surface area Derived from formula 2.92 m2 Ashley Torres MA [facility].; [facility]. 09-10-2022 11:00-0400 Body weight 225.89 kg Ashley Torres MA [facility].; [facility]. 09-10-2022 11:00-0400 Diastolic blood pressure 56 mm[Hg] Ashley Torres MA [facility].; [facility]. Comment on above: Patient Position: Sitting; Cuff Location : Left Arm; Cuff Size: Large 09-10-2022 11:00-0400 Heart rate 94 /min Ashley Torres MA [facility].; [place] [address] [facility]. Comment on above: Pattern: Regular 09-10-2022 11:00-0400 Systolic blood pressure 119 mm[Hg] Ashley Torres MA [facility].; [facility]. Comment on above: Patient Position: Sitting; Cuff Location : Left Arm; Cuff Size: Large 02-21-2022 10:55-0400 Body height 165.1 cm Alondra Crews PA-C Work Phone: [facility].; [place] [address] [facility]. 02-21-2022 10:55-0400 Body mass index (BMI) [Ratio] 79.88 kg/m2 Alondra Crews PA-C Work Phone: [facility].; [employer] 02-21-2022 10:55-0400 Body surface area Derived from formula 2.87 m2 Alondra Crews PA-C Work Phone: [facility].; [employer]. 02-21-2022 10:55-0400 Body weight 217.73 kg Alondra Liz Crews PA-C Work Phone: [employer]; [employer]. 02-21-2022 10:55-0400 Diastolic blood pressure 90 mm[Hg] Alondra J Crews PA-C Work Phone: [employer]; [employer]. Comment on above: Patient Position: Sitting; Cuff Location : Left Arm; Cuff Size: Standard 02-21-2022 10:55-0400 Heart rate 76 /min Alondra Liz Crews PA-C Work Phone: [employer]; [employer]. Comment on above: Pattern: Regular 02-21-2022 10:55-0400 Inhaled oxygen concentration 20 % Alondra J Crews PA-C Work Phone: [employer]. Comment on above: Room air 02-21-2022 10:55-0400 Inhaled oxygen concentration 21 % Alondra J Crews PA-C Work Phone: [employer]; [employer]. Comment on above: Room air 02-21-2022 10:55-0400 SaO2% (BldA) [Mass fraction] 98 % Alondra Agusto Crews PA-C Work Phone: [employer]; [employer]. 02-21-2022 10:55-0400 Systolic blood pressure 161 mm[Hg] Alondra J Crews PA-C Work Phone: [employer]; [employer]. Comment on above: Patient Position: Sitting; Cuff Location : Left Arm; Cuff Size: Standard 12-12-2021 13:02-0500 Diastolic blood pressure 76 mm[Hg] PA Alondra Crews PA Work Phone: [facility] Work Phone: 12-12-2021 13:02-0500 Systolic blood pressure 149 mm[Hg] PA Alondra Crews PA Work Phone: [facility] Work Phone: 12-12-2021 12:56-0500 Body height 165.1 cm PA Alondra Crews PA Work Phone: [facility] Work Phone: 12-12-2021 12:56-0500 Body mass index (BMI) [Ratio] 76.2 kg/m2 PA Alondra Crews PA Work Phone: [facility] Work Phone: 12-12-2021 12:56-0500 Body temperature 97 [degF] PA Alondra Crews PA Work Phone: [facility] Work Phone: 12-12-2021 12:56-0500 Body weight 207.74 kg PA Alondra Crews PA Work Phone: [facility] Work Phone: 12-12-2021 12:56-0500 Heart rate 76 /min PA Alondra Crews PA Work Phone: [facility] Work Phone: 12-12-2021 12:56-0500 Respiratory rate 18 /min PA Alondra Crews PA Work Phone: [facility] Work Phone: 12-12-2021 12:56-0500 SaO2% (BldA) [Mass fraction] 97 % PA Alondra Crews PA Work Phone: [facility] Work Phone: 11-15-2021 11:01-0500 Body height 165.1 cm Cadence Palmer LPN [facility], [facility].; [facility], [facility]. 11-15-2021 11:01-0500 Body mass index (BMI) [Ratio] 74.22 kg/m2 Cadence Palmer LPN [facility], [facility].; [facility], [facility] 11-15-2021 11:01-0500 Body surface area Derived from formula 2.78 m2 Cadence Garciamason HUDSON [facility] [employer] 11-15-2021 11:01-0500 Body weight 202.31 kg Cadence Palmer BECCA [facility] [employer] 11-15-2021 11:01-0500 Diastolic blood pressure 80 mm[Hg] Cadence Garciamason HUDSON [facility] [employer] Comment on above: Patient Position: Sitting; Cuff Location : Left Arm; Cuff Size: Standard 11-15-2021 11:01-0500 Heart rate 67 /min Cadence Garciamason OCCUPANCY SPECIALIST [facility] [employer] Comment on above: Pattern: Regular 11-15-2021 11:01-0500 Inhaled oxygen concentration 20 % Cadencedoris Garciamason OCCUPANCY SPECIALIST [facility] [employer] Comment on above: Room air 11-15-2021 11:01-0500 Inhaled oxygen concentration 21 % Cadence Garciamason HUDSON [place] [address] [facility], [facility].; [employer], [employer]. Comment on above: Room air 11-15-2021 11:01-0500 SaO2% (BldA) [Mass fraction] 99 % Cadencemichael Palmer OCCUPANCY SPECIALIST [facility] [employer] 11-15-2021 11:01-0500 Systolic blood pressure 147 mm[Hg] Cadence Garciamason HUDSON [place] [address] [facility], [facility].; [employer], [employer]. Comment on above: Patient Position: Sitting; Cuff Location : Left Arm; Cuff Size: Standard 10-11-2021 14:40-0500 Body height 165.1 cm Alondra Crews PA-C Work Phone: [place] [email or web address] 10-11-2021 14:40-0500 Body mass index (BMI) [Ratio] 74.38 kg/m2 Alondra ZABALA-Jennifer Work Phone: [place] [email or web address].; [employer] 10-11-2021 14:40-0500 Body surface area Derived from formula 2.78 m2 Alondra Liz Crews PA-C Work Phone: [employer]; [employer] 10-11-2021 14:40-0500 Body weight 202.76 kg Alondra Liz Crews PA-C Work Phone: [employer] 10-11-2021 14:40-0500 Diastolic blood pressure 76 mm[Hg] Alondra Liz Crews PA-C Work Phone: [employer] Comment on above: Patient Position: Sitting; Cuff Location : Left Arm; Cuff Size: Standard 10-11-2021 14:40-0500 Heart rate 81 /min Alondra Liz Crews PA-C Work Phone: [employer]; [employer]. Comment on above: Pattern: Regular 10-11-2021 14:40-0500 Inhaled oxygen concentration 20 % Alondra Liz Crews PA-C Work Phone: [employer]; [employer]. Comment on above: Room air 10-11-2021 14:40-0500 Inhaled oxygen concentration 21 % Alondra Agusto Crews PA-C Work Phone: [employer]; [employer]. Comment on above: Room air 10-11-2021 14:40-0500 SaO2% (BldA) [Mass fraction] 96 % Alondra Liz Crews PA-C Work Phone: [employer] 10-11-2021 14:40-0500 Systolic blood pressure 137 mm[Hg] Alondra Agusto Crews PA-C Work Phone: [employer]. Comment on above: Patient Position: Sitting; Cuff Location : Left Arm; Cuff Size: Standard 09-12-2021 14:33-0400 Body height 165.1 cm Jazlyn Andersonach [facility], [facility].; [employer] [address] [facility] 09-12-2021 14:33-0400 Body mass index (BMI) [Ratio] 71.56 kg/m2 Jazlyn Andersonach [facility], [facility].; [place] [email or web address] 09-12-2021 14:33-0400 Body surface area Derived from formula 2.74 m2 Jazlyn Carllabach [facility], [facility].; [employer] [facility]!. 09-12-2021 14:33-0400 Body weight 195.05 kg [facility]lyn Marie [facility].; [employer]. 09-12-2021 14:33-0400 Diastolic blood pressure 87 mm[Hg] Jazlyn [facility].; [employer]. Comment on above: Patient Position: Sitting; Cuff Location : Right Arm; Cuff Size: Standard 09-12-2021 14:33-0400 Heart rate 74 /min Jazlyn Carllabach [facility], [facility].; [employer]. Comment on above: Pattern: Regular 09-12-2021 14:33-0400 Inhaled oxygen concentration 20 % Jazlyn Liu Frank [facility].; [employer]. Comment on above: Room air 09-12-2021 14:33-0400 Inhaled oxygen concentration 21 % Jazlyn Carllabach [facility], [facility].; [employer]. Comment on above: Room air 09-12-2021 14:33-0400 SaO2% (BldA) [Mass fraction] 93 % Jazlyn Andersonach [facility] [address] [facility].; [employer]. 09-12-2021 14:33-0400 Systolic blood pressure 150 mm[Hg] Jazlyn Andersonach [facility] [address] [facility].; [employer]. Comment on above: Patient Position: Sitting; Cuff Location : Right Arm; Cuff Size: Standard 08-29-2021 13:07-0400 Body height 165.1 cm Jazlyn [facility]ab[facility].; [place] [address] [facility]. 08-29-2021 13:07-0400 Body mass index (BMI) [Ratio] 74.05 kg/m2 Jazlyn Carllabach [facility], [facility].; [place] [address] [facility] 08-29-2021 13:07-0400 Body surface area Derived from formula 2.78 m2 Jazlyn Liu Frank HUDSON [facility], [facility].; [place] [address] [facility]. 08-29-2021 13:07-0400 Body temperature 98.7 [degF] [facility]azlyn [facility].; [employer]. Comment on above: Method: Tympanic 08-29-2021 13:07-0400 Body weight 201.85 kg Jazlyn Carllabach OCCUPANCY SPECIALIST [facility], [facility].; [employer]. 08-29-2021 13:07-0400 Diastolic blood pressure 76 mm[Hg] Jazlyn Liu Frank OCCUPANCY SPECIALIST [facility].; [employer]. Comment on above: Patient Position: Sitting; Cuff Location : Left Arm; Cuff Size: Standard 08-29-2021 13:07-0400 Heart rate 75 /min Jazlyn Carllabach OCCUPANCY SPECIALIST [facility].; [employer]. Comment on above: Pattern: Regular 08-29-2021 13:07-0400 Inhaled oxygen concentration 20 % Jazlyn Liu Frank OCCUPANCY SPECIALIST [facility], [facility].; [employer]. Comment on above: Room air 08-29-2021 13:07-0400 Inhaled oxygen concentration 21 % Jazlyn Liu Frank OCCUPANCY SPECIALIST [facility].; [employer]. Comment on above: Room air 08-29-2021 13:07-0400 SaO2% (BldA) [Mass fraction] 93 % Jazlyn Ashli Frank OCCUPANCY SPECIALIST [facility], [facility].; [employer] 08-29-2021 13:07-0400 Systolic blood pressure 144 mm[Hg] Jazlyn Liu Frank HUDSON [facility].; [employer]. Comment on above: Patient Position: Sitting; Cuff Location : Left Arm; Cuff Size: Standard 08-12-2021 13:54-0400 Body height 165.1 cm Alondra Liz Crews PA-C Work Phone: [employer]; [employer]. 08-12-2021 13:54-0400 Body mass index (BMI) [Ratio] 69.39 kg/m2 Alondra Liz Crews PA-C Work Phone: [employer]; [employer] 08-12-2021 13:54-0400 Body surface area Derived from formula 2.7 m2 Alondra Liz Crews PA-C Work Phone: [employer]; [employer]. 08-12-2021 13:54-0400 Body weight 189.15 kg Alondra Liz Crews PA-C Work Phone: [employer]; [employer] 08-12-2021 13:54-0400 Diastolic blood pressure 74 mm[Hg] Alondra Liz Crews PA-C Work Phone: [employer]; [employer]. Comment on above: Patient Position: Sitting; Cuff Location : Left Arm; Cuff Size: Standard 08-12-2021 13:54-0400 Heart rate 110 /min Alondra Liz Crews PA-C Work Phone: [employer]; [employer]. Comment on above: Pattern: Regular 08-12-2021 13:54-0400 Inhaled oxygen concentration 20 % Alondra Agusto Crews PA-C Work Phone: [employer]; [employer]. Comment on above: Room air 08-12-2021 13:54-0400 Inhaled oxygen concentration 21 % Alondra J Crews PA-C Work Phone: [employer]; [employer] Comment on above: Room air 08-12-2021 13:54-0400 SaO2% (BldA) [Mass fraction] 95 % Alondra Liz Mars ZABALA-Jennifer Work Phone: [facility].; [facility]. 08-12-2021 13:54-0400 Systolic blood pressure 118 mm[Hg] Alondra Crews VJ-Jennifer Work Phone: [facility].; [facility]!. Comment on above: Patient Position: Sitting; Cuff Location : Left Arm; Cuff Size: Standard 07-03-2021 17:22-0400 Body temperature 98.8 [degF] Stephen Issa DO Work Phone: [employer] Work Phone: 07-03-2021 17:22-0400 Diastolic blood pressure 75 mm[Hg] Stephen Issa DO Work Phone: [employer] Work Phone: 07-03-2021 17:22-0400 Heart rate 88 /min Stephen Issa DO Work Phone: [facility] Work Phone: 07-03-2021 17:22-0400 Respiratory rate 16 /min Stephen Issa DO Work Phone: [facility] Work Phone: 07-03-2021 17:22-0400 SaO2% (BldA) [Mass fraction] 93 % Stephen Issa DO Work Phone: [facility] Work Phone: 07-03-2021 17:22-0400 Systolic blood pressure 147 mm[Hg] Stephen Issa DO Work Phone: [employer] Work Phone: 07-03-2021 06:52-0400 Body mass index (BMI) [Ratio] 69.56 kg/m2 Stephen Issa DO Work Phone: [employer] Work Phone: 07-03-2021 06:52-0400 Body weight 189.6 kg Stephen Issa DO Work Phone: [facility] Work Phone: 06-25-2021 14:28-0400 Body height 165.1 cm Stephen Parsons DO Work Phone: [employer] Work Phone: 06-03-2021 08:00-0400 Body temperature 97.9 [degF] Nawaf Dalton MD Work Phone: [facility] 06-03-2021 08:00-0400 Diastolic blood pressure 91 mm[Hg] Nawaf Dalton MD Work Phone: [facility] 06-03-2021 08:00-0400 Heart rate 62 /min Nawaf Dalton MD Work Phone: [facility] 06-03-2021 08:00-0400 Respiratory rate 37 /min Nawaf Dalton MD Work Phone: [facility] 06-03-2021 08:00-0400 SaO2% (BldA) [Mass fraction] 93 % Nawaf Dalton MD Work Phone: [facility] 06-03-2021 08:00-0400 Systolic blood pressure 159 mm[Hg] Nawaf Dalton MD Work Phone: [facility] 06-02-2021 15:47-0400 SaO2% (BldA) [Mass fraction] 96.5 % Joe Sommers [facility] 06-02-2021 15:41-0400 Body height 165.1 cm Nawaf Dalton MD Work Phone: [facility] 06-02-2021 15:41-0400 Body mass index (BMI) [Ratio] 73.22 kg/m2 Nawaf Dalton MD Work Phone: [facility] 06-02-2021 15:41-0400 Body weight 199.58 kg Nawaf Dalton MD Work Phone: [facility] 05-17-2021 14:30-0400 Body height 165.1 cm Jazlyn Andersonach [facility], [facility].; [place] [address] [facility], [facility]. 05-17-2021 14:30-0400 Body mass index (BMI) [Ratio] 78.21 kg/m2 Jazlyn Marie [facility], [facility].; [facility]. 05-17-2021 14:30-0400 Body surface area Derived from formula 2.84 m2 Jazlyn Liu Frank [facility], [facility].; [place] [address] [facility], [facility]. 05-17-2021 14:30-0400 Body weight 213.19 kg Jazlyn Marie [facility], [facility].; [place] [address] [facility], [facility]. 05-17-2021 14:30-0400 Diastolic blood pressure 80 mm[Hg] Jazlyn Marie [facility], [facility].; [place] [address] [facility], [facility]. Comment on above: Patient Position: Sitting; Cuff Location : Left Arm; Cuff Size: Standard 05-17-2021 14:30-0400 Heart rate 83 /min Jazlyn Marie [facility], [facility].; [place] [employer], [facility]. Comment on above: Pattern: Regular 05-17-2021 14:30-0400 Systolic blood pressure 132 mm[Hg] Jazlyn Marie [facility], [facility].; [place] [address] [facility], [facility]. Comment on above: Patient Position: Sitting; Cuff Location : Left Arm; Cuff Size: Standard 03-14-2021 [id number] Body height 165.1 cm Alondra Crews PA-C Work Phone: [place] [address] [facility].; [employer] [facility]. 03-14-2021 14:11-0400 Body mass index (BMI) [Ratio] 75.88 kg/m2 Alondra Crews PA-C Work Phone: [facility].; [employer] [facility]. 03-14-2021 14:11-0400 Body surface area Derived from formula 2.81 m2 Alondra Crews PA-C Work Phone: [facility] [facility]!.; [facility]cue 03-14-2021 14:11-0400 Body weight 206.84 kg Alondra Crews PA-C Work Phone: qcue; qcue 03-14-2021 14:11-0400 Diastolic blood pressure 69 mm[Hg] Alondra Crews PA-C Work Phone: qcue; qcue Comment on above: Patient Position: Sitting; Cuff Location : Left Arm; Cuff Size: Standard 03-14-2021 14:11-0400 Heart rate 92 /min Alondra Crews PA-C Work Phone: qcue; qcue Comment on above: Pattern: Regular 03-14-2021 14:11-0400 Systolic blood pressure 130 mm[Hg] Alondra Crews PA-C Work Phone: qcue; qcue Comment on above: Patient Position: Sitting; Cuff Location : Left Arm; Cuff Size: Standard 06-01-2020 03:00-0400 BP Diastolic 81 mm[Hg] [facility] [place] 06-01-2020 03:00-0400 BP Systolic 137 mm[Hg] [place], [place] 06-01-2020 03:00-0400 Respiratory Rate 17 /min [facility] [employer]- [place], [place] 06-01-2020 00:45-0400 BMI (Body Mass Index) 69.56 kg/m2 [place], [place] 06-01-2020 00:45-0400 Body Temperature 98.8 [degF] [facility] [place] 06-01-2020 00:45-0400 Body weight 189.6 kg [place] 06-01-2020 00:45-0400 Height 165.1 cm [place] 06-01-2020 00:45-0400 Pulse (Heart Rate) 71 /min [place] 06-01-2020 00:45-0400 Pulse Oximetry 98 % [place] Encounters Encounter Date Encounter Type Care Provider Facility Start: 06-09-2025 End: 06-09-2025 Office outpatient visit 25 minutes Alondra Crews PA-C Work Phone: [employer]. Start: 06-09-2025 Follow-up encounter Alondra li PA-C Work Phone: [employer]. Start: 12-21-2024 End: 12-21-2024 Medication Alondra Crews PA-C Work Phone: [facility]. Start: 12-21-2024 Review Alondraboston Piedraer PA-C Work Phone: [employer]. Start: 11-18-2024 ambulatory [facility]ILE P[facility] Amb[facility] Start: 11-11-2024 End: 11-11-2024 ambulatory ALONDRA CREWS [facility] Ambul[facility] Start: 11-11-2024 End: 11-11-2024 Office outpatient new 60 minutes Alondra Crews PA-C Work Phone: [facility]opedic [facility] Sports Medicine Comment on above: Positive LIZ (antinu clear antibody) (Primary Dx); Arthralgia, unspecified joint; CRP elevated; Lymphedema; Recurrent cellulitis Start: 08-05-2024 End: 08-05-2024 Medication Alondra Piedraer PA-C Work Phone: [facility]. Start: 06-24-2024 End: 06-24-2024 Orders Alondra Piedraer PA-C Work Phone: [employer]. Start: 06-15-2024 End: 06-15-2024 Medication Alondraboston Piedraer PA-C Work Phone: [facility]. Start: 06-15-2024 Review Alonrdaboston Piedraer PA-C Work Phone: [employer]. Start: 06-15-2024 End: 06-15-2024 Orders Alondra Piedraer PA-C Work Phone: [employer]. Start: 06-13-2024 End: 06-13-2024 Patient encounter procedure Alondra Crews PA-C Work Phone: [facility] Start: 05-12-2024 End: 05-12-2024 Office outpatient visit 25 minutes Alondra Crews PA-C Work Phone: [facility] [facility] Start: 05-10-2024 End: 05-10-2024 Telephone follow-up Alondra ZABALA-C Work Phone: [facility] Start: 05-04-2024 ambulatory Calderon nunez Sky Facili ty:[facility] Start: 05-04-2024 End: 05-09-2024 Evaluation and management of inpatient Calderon Ojeda Facility:[facility] Start: 04-15-2024 End: 04-15-2024 Office outpatient visit 15 minutes Alondra ZABALA-C Work Phone: [employer] Start: 04-11-2024 End: 04-11-2024 Telephone follow-up Alondra ZABALA-C Work Phone: [facility] [facility]! Start: 04-08-2024 Non-patient / Non-visit PA Alondra Crews PA Work Phone: [facility] Inpatient Physicians Work Phone: Start: 04-07-2024 Non-patient / Non-visit PA Alondra Crews PA Work Phone: [facility] Inpatient Physicians Work Phone: Start: 04-06-2024 Non-patient / Non-visit PA Alondra Crews PA Work Phone: [facility] Inpatient Physicians Work Phone: Start: 04-05-2024 ambulatory Antoni Osman Facility:[facility] Start: 04-05-2024 Non-patient / Non-visit PA Alondra Crews PA Work Phone: [facility] Start: 04-04-2024 ambulatory Calderon enrique [facility] Facili ty:[facility] Start: 04-04-2024 End: 04-08-2024 Evaluation and management of inpatient [facility]-Medical Surgical 3 Work Phone: Start: 04-01-2024 End: 04-01-2024 Office outpatient visit 25 minutes Alondra Crews PA-C Work Phone: [employer] Start: 09-04-2023 End: 09-04-2023 ambulatory HELDER TAVERA [facility] Start: 09-04-2023 End: 09-04-2023 Office outpatient new 45 minutes Helder Tavera MD Work Phone: [facility] Infectious Disease Comment on above: Morbid obesity (HCC) (Primary Dx); Recurrent cellulitis of lower extremity; Chronic acquired lymphedema Start: 08-26-2023 End: 08-26-2023 Patient encounter procedure Alondra Crews PA-C Work Phone: qcue Start: 08-21-2023 Non-patient / Non-visit PA Alondra Crews PA Work Phone: [facility] Inpatient Physicians Work Phone: Start: 08-20-2023 Non-patient / Non-visit PA Alondra Crews PA Work Phone: [facility] Work Phone: Start: 08-19-2023 Non-patient / Non-visit PA Alondra Crews PA Work Phone: [facility] Work Phone: Start: 08-18-2023 ambulatory Arthur Thompson Facility:[facility] Start: 08-18-2023 End: 08-21-2023 Evaluation and management of inpatient PA Alondra Crews PA Work Phone: [facility]-Progressive Care Unit Work Phone: Start: 07-31-2023 End: 07-31-2023 Office outpatient visit 15 minutes Alodnra Crews PA-C Work Phone: qcue Start: 07-31-2023 Non-patient / Non-visit PA Alondra Crews PA Work Phone: [facility] Work Phone: Start: 07-30-2023 Non-patient / Non-visit PA Alondra Crews PA Work Phone: [facility] Work Phone: Start: 07-29-2023 [facility] Facility:[facility] Start: 07-29-2023 Non-patient / Non-visit PA Alondra Crews PA Work Phone: [facility] Start: 07-29-2023 Non-patient / Non-visit PA Alondra Crews PA [facility] Work Phone: Start: 07-28-2023 Non-patient / Non-visit PA Alondra Crews PA Work Phone: [facility] Inpatient Physicians Work Phone: Start: 07-27-2023 Non-patient / Non-visit PA Alondra Crews PA Work Phone: [facility] Inpatient Physicians Work Phone: Start: 07-26-2023 Non-patient / Non-visit PA Alondra Crews PA Work Phone: [facility] Inpatient Physicians Work Phone: Start: 07-25-2023 Non-patient / Non-visit PA Alondra Crews PA Work Phone: [facility] Inpatient Physicians Work Phone: Start: 07-25-2023 End: 07-31-2023 Evaluation and management of inpatient PA Alondra Crews PA Work Phone: [facility]-Medical Surgical 3 Work Phone: Start: 07-16-2023 End: 07-16-2023 Office outpatient visit 15 minutes Alondra Crews PA-C Work Phone: qcue Start: 07-08-2023 Non-patient / Non-visit PA Alondra ZABALA Work Phone: [facility] Start: 07-08-2023 End: 07-08-2023 Emergency department patient visit [facility]-Emergency Department Work Phone: Start: 05-06-2023 End: 05-06-2023 Medication Alondra Crews PA-C Work Phone: [facility]cue Start: 2023 End: 2023 Patient encounter procedure Alondra Crews PA-C Work Phone: qcue Start: 02-06-2023 End: 02-06-2023 Patient encounter procedure Alondra Crews PA-C Work Phone: qcue Start: 02-02-2023 Patient encounter procedure Referring Provider Unknown [facility] DO Work Phone: Start: 02-02-[address] [facility] [id number] Start: 09-10-2022 End: 09-10-2022 Office outpatient visit 25 minutes Alondra Crews PA-C Work Phone: [facility]cue Start: 04-04-2022 End: 04-04-2022 Patient encounter procedure VJ ZABALA Work Phone: [facility]-Cardiovascular Services Start: 02-26-2022 End: 02-26-2022 Subsequent hospital visit by physician Alondra Crews PA-C Work Phone: [facility] Ultrasound Comment on above: Arrived Start: 02-26-2022 End: 02-26-2022 Orders Alondra Crews PA-C Work Phone: qcue Start: 02-21-2022 End: 02-21-2022 Office outpatient visit 25 minutes Alondra Crews PA-C Work Phone: qcue Start: 01-27-2022 End: 01-27-2022 Orders Alondra Crews PA-C Work Phone: [facility]. Start: 12-12-2021 End: 12-12-2021 Patient encounter procedure PA Alondra Crews PA [facility] Start: 11-15-2021 End: 11-15-2021 Office outpatient visit 25 minutes Alondra Crews PA-C Work Phone: qcue Start: 10-11-2021 End: 10-11-2021 Patient encounter procedure Alondra Crews PA-C Work Phone: qcue Start: 09-12-2021 End: 09-12-2021 Office outpatient visit 25 minutes Alondra Crews PA-C Work Phone: qcue Start: 08-29-2021 End: 08-29-2021 Office outpatient visit 25 minutes Alondra Crews PA-C Work Phone: qcue Start: 08-12-2021 End: 08-12-2021 Historical Summary Alondra Crews PA-C Work Phone: qcue Start: 08-12-2021 End: 08-12-2021 Patient encounter procedure Alondra Crews PA-C Work Phone: qcue Start: 08-06-2021 End: 08-06-2021 Telephone follow-up Alondra Crews PA-C Work Phone: qcue Start: 06-03-2021 End: 07-03-2021 Evaluation and management of inpatient Stephen Parsons DO Work Phone: [facility] Start: 06-02-2021 End: 06-03-2021 Evaluation and management of inpatient Nawaf Dalton MD Work Phone: [facility] Comment on above: Pneumonia due to 201 9 novel coronavirus Start: 05-20-2021 End: 05-20-2021 Orders Alondra Crews PA-C Work Phone: [facility] Start: 05-20-2021 End: 05-20-2021 Medication Alondra Crews PA-C Work Phone: qcue Start: 05-17-2021 [facility] Start: 05-17-2021 End: 05-17-2021 Patient encounter procedure Alondra Crews PA-C Work Phone: qcue Start: 05-09-2021 End: 05-09-2021 Orders Alondra Crews PA-C Work Phone: qcue Start: 04-05-2021 End: 04-05-2021 Subsequent hospital visit by physician Alondra Crews PA-C Work Phone: [facility] Echocardi[facility] Comment on above: Arrived Start: 03-14-2021 End: 03-14-2021 Office outpatient new 45 minutes Alondra Crews PA-C Work Phone: qcue Start: 02-06-2021 End: 02-06-2021 Orders Only Svitlana Ramirez Reagan Work Phone: [facility] Start: 05-31-2020 End: 06-01-2020 Emergency department patient visit [facility] Emergency Dept Comment on above: Flank pain (Primary Dx) Start: 03-01-2018 Ambulatory Fanta Worrell y:[place] Start: 03-01-2018 End: 03-01-2018 Ambulatory Herminia Jones Work Phone: [facility] Preoperative state Referring Pro vider Unknown [facility] DO Work Phone: Procedures Date [...] d ev cleared fda spec home use Rtuh Soni DO Work Phone: Start: 06-30-2021 Basic [...] Us retroperitoneal r eal time w/image complete oMnae Huang DO Work Phone: Start: 06-26-2021 Gluc [...] DO Work Phone: Start: 06-23-2021 Assay of [id number] Kyung Wong DO Work Phone: Start: 06-23-2021 [...] on above: Performed By: #### C /BLT ####[facility] [place] [address] [id number] Start: 06-19-2021 Gluc bld gluc mntr d ev cleared fda spec home use Ruth Soni DO Work Phone: Start: 06-19-2021 Radiologic exam ches t single view Elijah Allred MD Work Phone: Start: 06-19-2021 Smr prim src gram/gi emsa stain bct fungi/cell Jethro Hutchison MD Work Phone: Start: 06-19-2021 BASIC METABOLIC PANE L W/ REFLEX TO MG FOR LOW K Michelle Petyt DO Work Phone: Start: 06-19-2021 End: 06-19-2021 Calcium ionized Michelle Petty DO Work Phone: Start: 06-19-2021 Hepatic function panel Michelle DO Work Phone: Start: 06-19-2021 BLOOD GAS, ARTERIAL Ambrosio Allred MD Work Phone: Start: 06-19-2021 SHREDDER TENDER PEAT CLINICAL BEDSIDE SWALLOW EVALUATION & TREATMENT Anastacia Patterson DO Work Phone: Start: 06-18-2021 Speech and language therapy regime Jeffrey Boyle MD Work Phone: Start: 06-18-2021 Gluc bld gluc mntr d ev cleared fda spec home use Ruth Soni DO Work Phone: Start: 06-18-2021 Gluc bld gluc mntr d ev cleared fda spec home use Ruth Soni DO Work Phone: Start: 06-18-2021 EXTUBATION Jeffery thomason MD Work Phone: Start: 06-18-2021 Radiologic [...] d ev cleared fda spec home use tSephen Parsons DO Work Phone: Start: 06-06-2021 Gluc [...] Work Phone: Start: 06-03-2021 MRSA BY PCR Prelsey merrill MD Work Phone: Start: 06-03-2021 CULTURE, [...] LINE WITH OR WITHOUT PAC Al Stack 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 ACCOUNTANT CPA Work Phone: Start: 06-02-2021 Radiologic exam ches [...] End: 03-21-2021 Lab findings surveillance Nora parikh OCCUPANCY SPECIALIST Comment on above: 91 Start: 03-21-2021 End: 03-21-2021 Lipid panel Nora Palma L PN Comment on above: TC 148, HDL 46, LDL 90 Start: 03-14-2021 End: 05-09-2021 TTE w or wo fol wcon,Doppler Alondra Crews PA-C Work Phone: Start: 03-14-2021 End: 03-14-2021 Thyrotropin [Units/volume] in Serum or Plasma Nora Pateler OCCUPANCY SPECIALIST Comment on above: 2.90 Start: 06-01-2020 Ct abdomen & pelvis w/o contrast material Peter Savage Work Phone: Start: 06-01-2020 Basic metabolic pane l calcium total Peter Savage Work Phone: Start: 06-01-2020 Blood count complete automated Peetr Savage Work Phone: Start: 06-01-2020 Urine test [...] Start: 03-22-2026 Fasting lipid profile LIPID SCREENIN [facility] Start: 06-09-2025 Hemoglobin glycosyla alek a1c HEMOGLOBIN A1C* (15434) Start: 09-Jun-2025 14:09-04:00 Request [employer] Start: 06-09-2025 Assay of thyroid stimulating hormone tsh TSH W/ REFL FREE T4 (35127,[id number]) ([id number]) Start: 09-Jun-2025 14:09-04:00 Request Qianmi.; [facility]. Start: 06-09-2025 Lipid panel LIPID PANEL (8 0061) Start: 09-Jun-2025 14:09-04:00 Request [employer] Start: 06-09-2025 Comprehensive metabo lic panel CMP w/ GFR* (43600) Start: 09-Jun-2025 14:08-04:00 Request [employer] [facility]. Start: 06-09-2025 Blood count complete auto&auto difrntl wbc CBC, PLATELETS & AUT DIFF (F) (47477) Start: 09-Jun-2025 14:08-04:00 Request [facility]ian[facility].; [facility]. Start: 06-09-2025 Patient encounter procedure Medical; EXTENDED RTN - htn/other issues [facility]. Start: 09-Jun-2025 13:10-04:00 RAYNE Crews Appointment Request [facility]. Start: 02-09-2025 End: 02-09-2025 Patient encounter procedure 02/09/2025 9:30 AM EDT Office Visit [facility] [address] [facility] [facility] [place] [address] Selin Yamile Perez, [address] [address] [facility] Orthopedic [facility] Sports Medicine Start: 07-31-2024 COVID-19 Vaccine ( season) COVID-19 Vaccine ( season) [facility] Start: 07-31-2024 Influenza vaccination Influenza Vacc ine (#1) [facility] Start: 06-24-2024 Lipid panel LIPID PANEL (8 0061) Start: 24-Jun-2024 Request [facility].; [facility]. Start: 06-24-2024 Comprehensive metabo lic panel [facility].; [facility]. Start: 06-24-2024 Nursing evaluation o f patient and report Medical; Nurse visit - CMP mjp [facility]. Start: 24-Jun-2024 10:30-04:00 NURSE, FLOAT Appointment Request [facility]. Start: 06-14-2024 Lipid panel LIPID PANEL (8 0061) Start: 14-Jun-2024 Request [facility].; [facility]. Start: 06-13-2024 Cyanocobalamin vitam in b-12 VITAMIN B-12 SERUM (43479) Start: 13-Jun-2024 15:49-04:00 Request qcue; [facility]. Start: 06-13-2024 Hemoglobin glycosyla alek a1c HEMOGLOBIN A1C* (78234) Start: 13-Jun-2024 15:48-04:00 Request qcue; [facility]. Start: 06-13-2024 Assay of blood/uric acid URIC ACID BLOOD (93494) Start: 13-Jun-2024 15:48-04:00 Request qcue; [facility]. Start: 06-13-2024 Assay of thyroid stimulating hormone tsh TSH W/ REFL FREE T4 (20634,10049) (17014) Start: 13-Jun-2024 15:48-04:00 Request qcue; qcue Start: 06-13-2024 Comprehensive metabo lic panel CMP w/ GFR* (31754) Start: 13-Jun-2024 15:48-04:00 Request qcue; [facility]. Start: 06-13-2024 Blood count complete auto&auto difrntl wbc CBC, PLATELETS & AUT DIFF (F) (32558) Start: 13-Jun-2024 15:48-04:00 Request qcue; [facility]. Start: 06-13-2024 Sedimentation rate r bc automated ESR (SED RATE) (83043) Start: 13-Jun-2024 15:47-04:00 Request qcue; [facility]. Start: 06-13-2024 C-reactive protein C-REACTIVE PROTEIN (47000) Start: 13-Jun-2024 15:47-04:00 Request qcue; [facility]. Start: 06-13-2024 Antinuclear antibodies liz LIZ TITER AND PATTERN (42819) Start: 13-Jun-2024 15:47-04:00 Request qcue; [facility]. Start: 06-03-2024 Diabetes mellitus screening Diabetes Screening [facility] Start: 05-12-2024 Patient encounter procedure Medical; Hospital F/U - [facility] Cellulitis IPFU 05/09 [facility]. Start: 12-May-2024 10:00-04:00 RAYNE Crews Appointment Request [facility]. Start: 04-15-2024 Patient encounter procedure Medical; [facility] 04/08, bilat cellulitis, [facility]. Start: 15-Apr-2024 10:30-04:00 RAYNE Crews Appointment Request [facility]. Start: 04-08-2024 Patient discharge [facility] Start: 04-06-[address] [facility] Start: 04-05-2024 [facility] Start: 04-04-2024 Following clinical p athway protocol [facility] Start: 04-04-2024 Admission procedure [facility] Start: 04-04-2024 Hospital admission, emergency, from emergency room, medical nature [facility] Start: 04-04-2024 Blood culture [facility] Start: 04-04-2024 Bacteria identified in Blood by Culture Blood Culture [facility] Start: 04-01-2024 Cyanocobalamin vitam in b-12 VITAMIN B-12 SERUM (64634) Start: 01-Apr-2024 11:48-04:00 Request Qianmi.; Q[facility]mi. Start: 04-01-2024 Assay of thyroid stimulating hormone tsh TSH W/ REFL FREE T4 (68040,40306) ([id number]) Start: 01-Apr-2024 11:48-04:00 Request Qianmi.; Qianmi. Start: 04-01-2024 Hemoglobin glycosyla alek a1c HEMOGLOBIN A1C* (55793) Start: 01-Apr-2024 11:48-04:00 Request [employer].; [employer] Start: 04-01-2024 Lipid panel LIPID PANEL (8 0061) Start: 01-Apr-2024 11:48-04:00 Request [employer].; [employer]. Start: 04-01-2024 Comprehensive metabo lic panel CMP w/ GFR* (95489) Start: 01-Apr-2024 11:48-04:00 [facility]; [place] [address] [facility] Start: 04-01-2024 Blood count complete auto&auto difrntl wbc CBC, PLATELETS & AUT DIFF (F) (54870) Start: 01-Apr-2024 11:48-04:00 [facility]; [facility] [address] [facility] Start: 04-01-2024 Patient encounter procedure Medical; EXTENDED RTN - f/u [facility] Start: 01-Apr-2024 10:50-04:00 RAYNE Crews Appointment [facility] Start: 08-21-2023 Patient discharge [facility] Start: 08-18-[address] [facility] Start: 08-18-2023 Blood chemistry [facility] Start: 08-18-2023 Following clinical p athway protocol [facility] Start: 08-18-2023 [facility] Start: 08-18-2023 Assessment of risk o f venous thromboembolism [facility] Start: 08-18-2023 Insertion of cathete r into peripheral vein [facility] Start: 08-18-2023 Providing care accor ding to standard [facility] Start: 08-18-2023 Provision of activit y privileges [facility] Start: 08-18-2023 [facility] Start: 08-18-2023 Verification routine [facility] Start: 08-18-2023 Admission procedure [facility] Start: 08-18-2023 Patient referral to dietitian [facility] Start: 08-17-2023 Blood culture [facility] Start: 08-17-2023 [facility] Start: 08-17-2023 Bacteria identified in Blood by Culture Blood Culture [facility] Start: 07-31-2023 Influenza vaccination Influenza Vacc ine (#1) [facility] Start: 07-31-2023 Patient discharge [facility] Start: 07-30-2023 Dual pressure sponta neous ventilation support [facility] Start: 07-30-2023 [facility] Start: 07-29-2023 Dual pressure sponta neous ventilation support [facility] Start: 07-28-2023 Dual pressure sponta neous ventilation support [facility] Start: 07-27-2023 Dual pressure sponta neous ventilation support [facility] Start: 07-27-[address] [facility] Start: 07-26-2023 Dual pressure sponta neous ventilation support [facility] Start: 07-25-2023 End: 07-26-2023 Dual pressure spontaneous ventilation support [facility] Start: 07-25-2023 [facility] Start: 07-25-2023 [facility] Start: 07-25-2023 Thyroid stimulating hormone measurement [facility] Start: 07-25-2023 [facility] Start: 07-25-2023 Following clinical p athway protocol [facility] Start: 07-25-2023 Assessment of risk o f venous thromboembolism [facility] Start: 07-25-2023 Catheterization of vein [facility] Start: 07-25-2023 Consultation for treatment [facility] Start: 07-25-2023 Continuous pulse oximetry [facility] Start: 07-25-2023 Elevation of affecte d extremity [facility] Start: 07-25-2023 Fluid intake encouragement [facility] Start: 07-25-2023 Incentive spirometry [facility] Start: 07-25-2023 Insertion of cathete r into peripheral vein [facility] Start: 07-25-2023 Oxygen therapy [facility] Start: 07-25-2023 Providing care accor ding to standard [facility] Start: 07-25-2023 Provision of activit y privileges [facility] Start: 07-25-2023 Referral to service [facility] Start: 07-25-2023 [facility] Start: 07-25-2023 Bacterial nucleic ac id assay [facility] Start: 07-25-2023 [facility] Start: 07-25-2023 Verification routine [facility] Start: 07-25-2023 Admission procedure [facility] Start: 07-25-2023 Patient referral to dietitian [facility] Start: 07-08-2023 Bacteria identified in Blood by Culture Blood Culture [facility] Start: 07-08-2023 Blood culture [facility] Start: 02-26-2023 VIRFUVHOME, Provider : Peggy Zepeda, Status: Pen, Time: 1:30 PM VIRFUVHOME, Provider: Peggy Zepeda, Status: Pen, Time: 1:30 PM [facility] DO Work Phone: Start: 02-09-2023 VIRNPVCLSH, Provider : DORIE RD,YOLIS MENENDEZ, Status: Pen, Time: 6:30 PM VIRNPVCLSH, Provider: DORIE RD,YOLIS MENENDEZ, Status: Pen, Time: 6:30 PM [facility] DO Work Phone: Start: 02-05-2023 Zoster Vaccines (2 of 2) Zoste r Vaccines (2 of 2) [facility] [employer] Start: 07-03-2022 Creatinine measurement [employer] Phone: Start: 07-03-2022 [employer] Work Phone: Start: 06-03-2022 Potassium [Moles/vol ume] in Serum or Plasma POTASSIUM [facility] [employer] [facility] Start: 02-21-2022 End: 04-07-2022 Myocardial spect multiple studies Lexiscan Cardiolite Stress Test (32699) Date: 21-Feb-2022 Comments: Nuclear stress test if not contraindicated. [facility], [facility]. Comment on above: Nuclear stress test if not contraindicated. Start: 08-12-2021 Brncdilat rspse spmt ry pre&post-brncdilat admn PFT Protocol (95124) -- not in office Start: 12-Aug-2021 [facility] [employer] Start: 07-31-2021 Influenza vaccination A Gigi Hill Start: 07-31-2021 [facility] Work Phone: Start: 07-31-2020 Influenza vaccination Flu vaccine (# 1) [facility] [place] Start: 02-12-2018 Colonoscopy COLORECTAL CAN CER SCREENING DISCUSSION [facility] Start: 02-12-2018 Screening for malign ant neoplasm of breast [facility] Work Phone: Start: 02-12-2018 Screening for malign ant neoplasm of colon Flexible sigmoidoscopy [facility] Start: 02-12-2018 Zoster vaccine hzv l emmy for subcutaneous use ZOSTER (SHINGLES) VACCINE (1 of 2) [facility] Start: 02-12-2018 [facility] Work Phone: Start: 07-27-2015 Screening mammography MAMMOGRA M SCREENING DISCUSSION [facility] Start: 02-12-2013 Colonoscopy COLORECTAL CAN CER SCREENING DISCUSSION [facility] Start: 02-12-2013 Screening for malign ant neoplasm of colon [facility] Work Phone: Start: 2008 Screening for malign ant neoplasm of breast Mammogram [facility] Start: 02-12-1998 Screening for malign ant neoplasm of cervix [facility] Start: 02-12-1989 Screening for malign ant neoplasm of cervix [facility] Start: 02-12-1987 DTaP/Tdap/Td Vaccine s (1 - Tdap) DTaP/Tdap/Td Vaccines (1 - Tdap) [facility] Start: 02-12-1987 Third diphtheria, te tanus and acellular pertussis (DTaP) vaccination TDAP (ADULT) [facility] Start: 02-12-1987 [facility] Work Phone: Start: 02-12-1986 Hepatitis C screening Hepatitis C Sc reening [facility] Start: 02-12-[address] [facility] Start: 1984 COVID-19 VACCINE (1) COVID-19 VACCIN E (1) [facility] Start: 02-12-1983 HIV screening [facility] Start: 02-12-1981 HIV screening HIV SCREENING DISCUSSION [facility] Start: 1980 COVID-19 VACCINE (1) COVID-19 VACCIN E (1) [facility] Start: 1980 Depression Screening [facility] Start: 1980 [facility] Work Phone: Start: 02-12-1974 [facility] Work Phone: Start: 02-12-1973 COVID-19 VACCINE (1) COVID-19 VACCIN E (1) [facility] Start: 02-12-1971 History and physical examination, annual for health maintenance Wellness Visit [facility] Start: 02-12-1969 MMR Vaccines (1 of 1 - Standard series) MMR Vaccines (1 of 1 - Standard series) [facility] Start: 1968 COVID-19 Vaccine (#1) COVID-19 Vacci ne (#1) [facility] Start: 1968 Examination of skin Derm Melan ambrosio Skin Check [facility] Start: 1968 Hepatitis B Vaccines (1 of 3 - 3-dose series) Hepatitis B Vaccines (1 of 3 - 3-dose series) [facility] Start: 1968 Hepatitis C antibody , confirmatory test HEPATITIS C VIRUS SCREENING [facility] Start: 1968 Screening for malign ant neoplasm of colon [facility] Start: 1968 Tetanus vaccination Tetanus: Every 1 0yrs [facility] [employer] [facility] Work Phone: Alanine aminotransfe rase [Enzymatic activity/volume] in Serum or Plasma [facility] Albumin [Mass/volume ] in Serum or Plasma [facility] Alkaline phosphatase [Enzymatic activity/volume] in Serum or Plasma [facility] End: 11-11-2025 LIZ measurement LIZ Lab Routine Positive LIZ (antinuclear antibody) 1 Occurrences starting 11/11/2024 until 11/11/2025 [facility] Work Phone: Comment on above: 1 Occurrences starti ng 11/11/2024 until 11/11/2025 Anion gap measurement [facility] Anion gap measurement [facility] End: 11-11-2025 Antibody to single and double stranded DNA measurement Anti-DNA Double-Stranded Antibody Lab Routine Positive LIZ (antinuclear antibody) 1 Occurrences starting 11/11/2024 until 11/11/2025 [facility] Comment on above: 1 Occurrences starti ng 11/11/2024 until 11/11/2025 Aspartate aminotrans ferase [Enzymatic activity/volume] in Serum or Plasma [facility] Bacteria identified in Blood by Culture [facility] End: 06-15-2021 Basic metabolic 2000 panel - Serum or Plasma [facility] Work Phone: Basic metabolic 2000 panel - Serum or Plasma [facility] Work Phone: Bilirubin, total measurement [facility] BIPAP [facility] Work Phone: Blood Gas, Arterial [facility] Work Phone: BUN/Creatinine ratio [facility] BUN/Creatinine ratio [facility] End: 11-11-2025 C reactive protein [Mass/volume] in Serum or Plasma CRP, Inflammation Lab Routine Positive LIZ (antinuclear antibody) 1 Occurrences starting 11/11/2024 until 11/11/2025 [facility] Comment on above: 1 Occurrences starti ng 11/11/2024 until 11/11/2025 End: 11-11-2025 C4 complement assay C4 Complement Lab Routine Positive LIZ (antinuclear antibody) 1 Occurrences starting 11/11/2024 until 11/11/2025 [facility] Comment on above: 1 Occurrences starti ng 11/11/2024 until 11/11/2025 End: 11-11-2025 C>3< complement assay C3 Complement Lab Routine Positive LIZ (antinuclear antibody) 1 Occurrences starting 11/11/2024 until 11/11/2025 [facility] Comment on above: 1 Occurrences starti ng 11/11/2024 until 11/11/2025 Calcium [Mass/volume ] in Serum or Plasma [facility] Calcium [Mass/volume ] in Serum or Plasma [facility] Carbon dioxide, tota l [Moles/volume] in Serum or Plasma [facility] Carbon dioxide, tota l [Moles/volume] in Serum or Plasma [facility] CBC W Auto Different ial panel - Blood [facility] Work Phone: End: 06-15-2021 CBC W Auto Differential panel - Blood [facility] Work Phone: Chloride [Moles/volu me] in Serum or Plasma [facility] Chloride [Moles/volu me] in Serum or Plasma [facility] End: 11-11-2025 Chromatin Antibodies Chromatin Antibodies Lab Routine Positive LIZ (antinuclear antibody) 1 Occurrences starting 11/11/2024 until 11/11/2025 [facility] Comment on above: 1 Occurrences starti ng 11/11/2024 until 11/11/2025 End: 11-11-2025 Complete blood count with white cell differential, manual CBC and Differential Lab Routine Positive LIZ (antinuclear antibody) 1 Occurrences starting 11/11/2024 until 11/11/2025 [facility] Comment on above: 1 Occurrences starti ng 11/11/2024 until 11/11/2025 End: 11-11-2025 Creatinine [Mass/volume] in Serum or Plasma Creatinine, serum Lab Routine Positive LIZ (antinuclear antibody) 1 Occurrences starting 11/11/2024 until 11/11/2025 [facility] Comment on above: 1 Occurrences starti ng 11/11/2024 until 11/11/2025 Creatinine [Moles/vo lume] in Serum or Plasma [facility] Creatinine [Moles/vo lume] in Serum or Plasma [facility] End: 11-11-2025 Erythrocyte sedimentation rate Sedimentation Rate Lab Routine Positive LIZ (antinuclear antibody) 1 Occurrences starting 11/11/2024 until 11/11/2025 [facility] Comment on above: 1 Occurrences starti ng 11/11/2024 until 11/11/2025 End: 11-11-2025 Extractable nuclear antigen antibody screening test NAVYA Screen (Ro52,Ro60,SSB,SM,AUTO DAMAGE ESTIMATOR,S CL-70,JO1) Lab Routine Positive LIZ (antinuclear antibody) 1 Occurrences starting 11/11/2024 until 11/11/2025 [facility] Comment on above: 1 Occurrences starti ng 11/11/2024 until 11/11/2025 Glucose [Mass/volume ] in Serum or Plasma [facility] Work Phone: Glucose [Mass/volume ] in Serum or Plasma [facility] Glucose [Mass/volume ] in Serum or Plasma [facility] Hematocrit [Volume Fraction] of Blood [facility] Hematocrit [Volume Fraction] of Blood [facility] Hemoglobin [Mass/vol ume] in Blood [facility] Hemoglobin [Mass/vol ume] in Blood [facility] Hepatic function 200 0 panel - Serum or Plasma [facility] Work Phone: End: 11-11-2025 Hepatic function 2000 panel - Serum or Plasma Hepatic Function Panel Lab Routine Positive LIZ (antinuclear antibody) 1 Occurrences starting 11/11/2024 until 11/11/2025 [facility] Comment on above: 1 Occurrences starti ng 11/11/2024 until 11/11/2025 Leukocytes [#/volume ] in Blood [facility] Leukocytes [#/volume ] in Blood [facility] Magnesium [Mass/volu me] in Serum or Plasma [facility] Work Phone: Magnesium [Mass/volu me] in Serum or Plasma [facility] Mean corpuscular hemoglobin concentration determination [facility] Mean corpuscular hemoglobin concentration determination [facility] Mean corpuscular hemoglobin determination [facility] Mean corpuscular hemoglobin determination [facility] Measurement of renal function [facility] Measurement of renal function [facility] Neutrophil count [facility] Neutrophil count [facility] Neutrophil percent differential count [facility] Neutrophil percent differential count [facility] End: 06-26-2021 Osmolality of Serum or Plasma [facility] Work Phone: Osmolality of Serum or Plasma [facility] Work Phone: Osmolality, Urine [facility] Work Phone: Oxygen therapy [Mini [facility] Data Set] [facility] Work Phone: Patient Education [facility] Work Phone: Patient referral [facility] Work Phone: End: 06-19-2021 PBP2A TEST FOR S. AUREUS [facility] Work Phone: PBP2A TEST FOR S. AUREUS [facility] Work Phone: Phosphate [Mass/volu me] in Serum or Plasma [facility] Work Phone: Platelets [#/volume] in Blood [facility] Platelets [#/volume] in Blood [facility] Potassium [Moles/vol ume] in Serum or Plasma [facility] Potassium [Moles/vol ume] in Serum or Plasma [facility] End: 11-11-2025 Protein/Creatinine [Ratio] in Urine Protein / Creatinine Ratio, Urine Lab Routine Positive LIZ (antinuclear antibody) 1 Occurrences starting 11/11/2024 until 11/11/2025 [facility] Comment on above: 1 Occurrences starti ng 11/11/2024 until 11/11/2025 Pulse oximetry, overnight [employer] Work Phone: Red blood cell count [facility] Red blood cell count [facility] Red cell distributio n width determination [facility] Red cell distributio n width determination [facility] RT Communication Order [facility] Work Phone: Sodium [Moles/volume ] in Serum or Plasma [facility] Work Phone: Sodium [Moles/volume ] in Serum or Plasma [facility] Sodium [Moles/volume ] in Serum or Plasma [facility] Sodium, Urine, Random [facility] Work Phone: End: 06-02-2021 Standard ECG ECG ECG STAT One Time for 1 Occurrences starting 06/02/2021 until 06/02/2021 [facility] [employer] [facility] Comment on above: One Time for 1 Occur rences starting 06/02/2021 until 06/02/2021 Total protein measurement [facility] Troponin I.cardiac [Mass/volume] in Serum or Plasma [facility] Work Phone: End: 06-26-2021 Urate [Mass/volume] in Serum or Plasma [facility] Work Phone: End: 11-11-2025 Urate [Mass/volume] in Serum or Plasma Uric Acid Lab Routine Positive LIZ (antinuclear antibody) Recurrent cellulitis 1 Occurrences starting 11/11/2024 until 11/11/2025 [facility] Comment on above: 1 Occurrences starti ng 11/11/2024 until 11/11/2025 Urea nitrogen [Mass/volume] in Serum or Plasma [facility] Urea nitrogen [Mass/volume] in Serum or Plasma [facility] End: 06-26-2021 Urinalysis [facility] Work Phone: End: 11-11-2025 Urinalysis Urinalysis Lab Routine Positive LIZ (antinuclear antibody) 1 Occurrences starting 11/11/2024 until 11/11/2025 [facility] Comment on above: 1 Occurrences starti ng 11/11/2024 until 11/11/2025 [facility] Immunizations Immunization Date Immunization Notes Care Provider Devan avilez 12-11-2022 zoster vaccine recombinant [facility] Work Phone: [facility] Payers Date Payer Category Payer Blue Cross Blue Shield ANTHEM BL UE/PREF/HMO/PPO [id number] 2023 Self-pay [id number] 2023 Unknown [id number] 2022 Blue Cross Blue Shie ld (Indemnity or Managed Care) - Out of State BCBS OUT OF STATE [facility] [place] [place] .[id number] 2021 Blue Cross Blue Shield [id number] 2017 Unknown ANTHEM ANTHEM HM O PPO POS [id number] 2017-Present [id number] 2017 Unknown ANTHEM ANTHEM HM O PPO POS [id number] 2017-Present [id number]. [id number] 2017 Unknown [id number] 1.13.172. 2.7.3.031189.315 1968 Unknown [id number] 2.16.840.1.098017.3.579. 2.651 1968 Unknown [id number] 2.840.1.386120.3.579. 2.356 1968 Unknown [id number] 2.840.1.599615.3.579. 2.356 1968 Unknown [id number] 2.840.1.788809.3.579. 2.903 1968 Unknown [id number] 2.840.1.263174.3.579. 2.903 Unknown [id number] Unknown [id number] Unknown [id number] Unknown [id number] 2.16.840.1.622504.3.579. 2.462 Unknown [id number] 2.840.1.210575.3.579. 2.462 Unknown [id number] 2.16.840.1.027444.3.579. 2.462 Unknown [id number] 2.16.840.1.258353.3.579. 2.462 Unknown [id number] 2.16.840.1.922254.3.579. 2.462 Unknown [id number] 2.16.840.1.091650.3.579. 2.462 Unknown [id number] 2.16.840.1.188017.3.579. 2.462 Unknown [id number] 2.16.840.1.197373.3.579. 2.462 Unknown [id number] 2.16.840.1.016582.3.579. 2.462 Unknown [id number] 2.16.840.1.123090.3.579. 2.462 Unknown [id number] 2.16.840.1.679932.3.579. 2.462 Unknown [id number] 2.16.840.1.672527.3.579. 2.462 Unknown [id number] 2.16.840.1.665932.3.579. 2.462 Unknown [id number] 2.16.840.1.158845.3.579. 2.462 Unknown [id number] 2.16.840.1.935902.3.579. 2.462 Unknown [id number] 2.16.840.1.349340.3.579. 2.462 Unknown [id number] 2.16.840.1.246082.3.579. 2.462 Unknown [id number] 2.16.840.1.898327.3.579. 2.462 Unknown [id number] 2.16.840.1.604375.3.579. 2.462 Unknown [id number] 2.16.840.1.229659.3.579. 2.462 Unknown [id number] 2.16.840.1.024676.3.579. 2.462 Social History Date Type Detail Facility Start: 03-02-2018 End: 04-04-2024 Tobacco smoking status HIIS Unknown if ever smoked [facility] Start: 1970 Sex Assigned At Not on file O [facility] Start: 08-24-2017 End: 06-01-2020 Tobacco smoking status NHIS Never smoker [facility] Start: 06-01-2020 End: 09-04-2023 Alcohol intake [facility] (finding) [facility] Exposure to SARS-CoV -2 (event) Unable to assess [facility] Start: 08-24-2017 End: 05-25-2018 Tobacco use and exposure Never used [employer] Start: 05-25-2018 Alcohol intake Current drinke r of alcohol (finding) [employer] Start: 08-18-2017 Alcohol Comment rarely [employer] [facility] Exposure to SARS-CoV -2 (event) Yes [employer] Start: 1970 Sex Assigned At Female W [facility] Start: 09-04-2023 Non-smoker Non-smoker -[facility] DO Work Phone: Start: 09-04-2023 Tobacco use panel [facility] NEGATED: Highlighted row No Social History Information Available No Social History Information Available qcue; [employer] Work Phone: Goals Date Patient Goal Desired [...] and elevating legs to better manage edema. 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 Reduce LE edema as demontrated by decrease in LE girth by 2 cm to facilitate being able to wear shoes of choice and feel more comfortable in her pants. Functional Status Date Assessment Result Facility 04-08-2024 Functional status Ambulates;Bathroom [facility] Work Phone: 08-21-2023 Functional status Ambulates;Bathroom [facility] Work Phone: 07-31-[address] [facility] Work Phone: Mental Status Date Assessment Result Facility 04-08-2024 Cognitive function Voice/Name [facility] Work Phone: 08-21-2023 Cognitive function Voice/Name [facility] Work Phone: 07-31-2023 Cognitive function Voice/Name [facility] Work Phone: 07-08-2023 Cognitive function Level Of Cons ciousness Awake;Alert;Appropriate;Follow s Commands [facility] Work Phone: Clinical Notes 06-02-2021 to 11-11-2024 Yamile Smallwood DO - 11/11/2024 8:27 AM BernaMarry arandaBECCA - 11/11/2024 8:26 AM EST Note Date & Type Note Facility 11-11-[address] [facility] IENT VISIT Patient Name: Jesusita England : 1970 Medical Record: [id number] PCP: Alondra Crews PA-C Referring provider: Provider, [...] any questions or concerns. Yamile Smallwood DO [facility] Rheumatology [address] [place] [address] O: [phone] F: [phone] The above recommendations were discussed with the patient who understands and agrees with the plan. Portions of this note were created with [employer]. Every effort was made to proofread, but sound-alike errors may occasionally occur. Please contact me for any clarification of note contents. I spent 60 minutes on this patient encounter on the date of visit which included record review, ivfu-ym-zvfe time with patient, placing orders, documentation in the electronic medical record. HPI/ROS Jesusita England is a 54 y.o. female with who was referred by Provider, [facility] for evaluation of positive LIZ, recurrent [...] HENT: Head normocephali (more content not included)... [facility] 11-11-2024 History of Present illness Narrative Images from the original note were not included. RHEUMATOLOGY NEW PATIENT VISIT Patient Name: Jesusita England : 1970 Medical Record: [id number] PCP: Alondra Crews PA-C Referring provider: Provider, [...] any questions or concerns. Yamile Smallwood DO [facility] Rheumatology [address] [place] [address] O: [phone] F: [phone] The above recommendations were discussed with the patient who understands and agrees with the plan. Portions of this note were created with [employer]. Every effort was made to proofread, but sound-alike errors may occasionally occur. Please contact me for any clarification of note contents. I spent 60 minutes on this patient encounter on the date of visit which included record review, gjnk-up-lrht time with patient, placing orders, documentation in the electronic medical record. HPI/ROS Jesusita England is a 54 y.o. female with who was referred by Provider, [facility] for evaluation of positive LIZ, recurrent [...] [x]Yes []Patient declined documented in this encounter [facility] 05-09-2024 Note [facility] 04-08-2024 Note [facility] 04-08-2024 Discharge summary Note Date/Time April 08, 2024 11:21 am [facility] Medical Records Department [address] [place] [address] Instructions for Home/Discharge Instructions 04/08/24 1119 MR#: [id number] Acct: [id number] Name: JESUSITA ENGLAND Rep #:[id number] : 1970 54 From: Rubin frost [...] Wander Garcia MD; VJ Maloney ~ Signed [facility] Work Phone: 1(494) 189-810805-09-2024 Progress note Author Rubin Hadley [facility] April 07, 2024 10:15am Note Date/Time April 07, 2024 10:09a m [facility] Medical Records Department [address] [place] [address] Progress Note - Hospitalist 04/07/24 1006 MR#: [id number] Acct: [id number] Name: JESUSITA ENGLAND Rep #:[id number] : 1970 54 From: Rubin frost MD PCP: VJ Maloney Status:ADM IN Location: CO3 [id number] Subjective Subjective White count has completely resolved [...] 75.6 H, Lymph % (Auto) 12.2 L, [place] % (Auto) 10.8 H, Eos % (Auto) [...] 71.7 H, Lymph % (Auto) 15.1 L, [place] % (Auto) 11.4 H, Eos % (Auto) [...] DVT: Lovenox Charges/Coding Visit Charges Inpatient E&M: 90355 Subs Hosp L2 04/07/24 1015 <Electronically signed by Rubin Hadley MD> Cosigner Signature (if applicable): CC: ~ Signed [facility] Work Phone: 1(907) 665-994705-08-2024 Consult note Author Wander Garcia [facility] April 06, 2024 3:33pm Note Date/Time April 06, 2024 3:33pm [facility] Medical Records Department [address] [place] [address] Consultation - Infectious Dx 04/06/24 1530 MR#: [id number] Acct: [id number] Name: JESUSITA ENGLAND Rep #:[id number] 4 : 1970 54 From: Wander bledsoe MD PCP: VJ Maloney Status:ADM IN Location: MS3 ZS679-7 Assessment & Plan Assessment/Plan (1) Cellulitis: QUALIFIERS: [...] performed and neg except as noted above. 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 For lunch she [...] % (Auto) Cancelled, Lymph % (Auto) Cancelled, [place] % (Auto) Cancelled, Eos % (Auto) Cancelled, [...] Drop Cells Cancelled, Ovalocytes Cancelled, Stomatocytes Cancelled, [place] Bodies Cancelled, [place] Cells Cancelled, Bite Cells Cancelled, Crenated Cell [...] 75.6 H, Lymph % (Auto) 12.2 L, [place] % (Auto) 10.8 H, Eos % (Auto) [...] Signature (if applicable): CC: VJ Maloney~ Signed [facility] Work Phone: 1([phone]) 515-938905-08-2024 Progress note Author Rubin Hadley [facility] April 06, 2024 2:46pm Note Date/Time April 06, 2024 2:46pm [facility] Medical Records Department [address] [place] [address] Progress Note - Hospitalist 04/06/24 1444 MR#: [id number] Acct: [id number] Name: JESUSITA ENGLAND Rep #:[id number] : 1970 54 From: Rubin frost MD PCP: VJ Maloney Status:ADM IN Location: CO3 WM697-5 Subjective Subjective doing well, no issues overnight. [...] % (Auto) Cancelled, Lymph % (Auto) Cancelled, [place] % (Auto) Cancelled, Eos % (Auto) Cancelled, [...] Drop Cells Cancelled, Ovalocytes Cancelled, Stomatocytes Cancelled, [place] Bodies Cancelled, [place] Cells Cancelled, Bite Cells Cancelled, Crenated Cell [...] 75.6 H, Lymph % (Auto) 12.2 L, [place] % (Auto) 10.8 H, Eos % (Auto) [...] DVT: Lovenox Charges/Coding Visit Charges Inpatient E&M: 64363 Subs Hosp L2 04/06/24 1446 <Electronically signed by Rubin Hadley MD> Cosigner Signature (if applicable): CC: ~ Signed [facility] Work Phone: 1([phone]) 653-744605-07-2024 Consult note Author Cole Kelly [facility] April 05, 2024 9:48pm Note Date/Time April 05, 2024 9:48pm [facility] Medical Records Department [address] [place] [address] Pharmacokinetic/Renal -Consult 04/05/242146 MR#: [id number] Acct: [id number] Name: JESUSITA ENGLAND Rep #:[id number] 0 : 1970 54 From: Cole Melton od PCP: VJ Maloney Status:ADM IN Y Location: [place] 597576-1 Consult Antibiotic Management Pharmacy has been consulted [...] [date and time ordered]: 04/07 @ 2100 04/05/240 <Electronically signed by Cole seth> Date _ Cole Pino Signature (if applicable): Date CC: ~ Signed [facility] Work Phone: 1(677) 594-448505-07-2024 Progress note Author Rubin Hadley [facility] April 05, 2024 10:53am Note Date/Time April 05, 2024 10:53a ashli [facility] Medical Records Department [address] [place] [address] Progress Note - Hospitalist 04/05/24 1048 MR#: [id number] Acct: [id number] Name: JESUSITA ENGLAND Rep #:[id number] 0 : 1970 54 From: Rubin frost MD PCP: VJ Maloney Status:ADM IN Location: MS3 PU615-7 Subjective Subjective Doing well, no issues overnight. [...] (Auto) 91.5 H, Lymph % (Auto) 2.6L, [place] % (Auto) 5.0, Eos % (Auto) 0.0, [...] DVT: Lovenox Charges/Coding Visit Charges Inpatient E&M: 79496 Subs Hosp L2 04/05/24 1053 <Electronically signed by Rubin Hadley MD> Cosigner Signature (if applicable): CC: ~ Signed [facility] Work Phone: 1(871) 172-536305-07-2024 History and physical note Author Calderon Swanson [facility] April 05, 2024 5:52am Note Date/Time April 04, 2024 10:03p m [facility] Medical Records Department [address] [place] [address] H&P Exam - Hospitalist 04/04/241 MR#: [id number] Acct: [id number] Name: JESUSITA ENGLAND Rep #:[id number] 5 : 1970 54 From: Calderon Chowdhury o PCP: VJ Maloney Status:ADM IN [place] [facility] YH258-3 HPI - General General Date of Admission: [...] consult with Dr. Garcia who presents to [facility] ER complaining of bilateral lower extremity [...] isexpected to be greater than 2 midnights. [facility] Medical History Abnormal echocardiogram Anxiety [...] a small breakfast on the way to work....[employer] or a breakfast bar. For lunch she [...] (Auto) 91.5 H, Lymph % (Auto) 2.6L, [place] % (Auto) 5.0, Eos % (Auto) 0.0, [...] 55 minutes. Charges/Coding Visit Charges Inpatient E&M: 65350 Init Hosp L2 04/05/24 0552 <Electronically signed by Calderon Ojeda DO> Cosigner Signature (if applicable): CC: Dr. Calderon Ojeda DO; VJ Maloney~ Signed [facility] Work Phone: 1(991) 411-387905-07-2024 Consult note Author Cole Kelly [facility] April 04, 2024 11:58pm Note Date/Time April 04, 2024 11:58p [facility] Medical Records Department [address] [place] [address] Pharmacokinetic/Renal -Consult 04/04/24 2357 MR#: [id number] Acct: [id number] Name: JESUSITA ENGLAND Rep #:[id number] 1 : 1970 54 From: Cole Melton od PCP: VJ Maloney Status:ADM IN Location: [place] [address] Consult Antibiotic Management Pharmacy has been consulted [...] and time ordered]: 04/05 @ 2100 04/04/24 1638 <Electronically signed by Cole seth> Date _ Cole Pino Signature (if applicable): Date CC: ~ Signed [facility] Work Phone: [phone]) 717-182605-07-2024 Discharge summary Author Gian Menjivarrus [facility] April 04, 2024 10:06pm Note Date/Time April 04, 2024 8:20pm [facility] Medical Records Department [address] [place] [address] Emergency Department Summary 04/04/24 MR#: [id number] Acct: [id number] Name: JESUSITA ENGLAND Rep #:[id number] 5 : 1970 54 From: Gian Davis PCP: VJ Maloney Status:REG ER Location: ED HPI History of Present Illness Chief Complaint: Cellulitis PFSH [facility] Medical History Abnormal echocardiogram Anxiety [...] occupational status: employed 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 For lunch she [...] medical floor This note was generated with Lucidux dictation software. It may contain incorrect words, [...] your Primary Care Provider. Call [facility] ([phone]) or report to the closest Emergency Room. Call 911 if necessary. 04/04/242205 <Electronically signed by Gian Villanueva DO> Cosigner Signature (if applicable): CC: VJ Maloney ~ Signed [facility] Work Phone: 1([phone]) 360-965505-06-2024 Discharge summary Author Gian Villanueva [facility] April 04, 2024 10:06pm Note Date/Time April 04, 2024 8:20pm [facility] Medical Records Department [address] [place] [address] Emergency Department Summary 04/04/24 MR#: [id number] Acct: [id number] Name: JESUSITA ENGLAND Rep #:[id number] 5 : 1970 54 From: Gian Davis PCP: VJ Maloney Status:REG ER Location: ED HPI History of Present Illness Chief Complaint: Cellulitis [facility] Medical History Abnormal echocardiogram Anxiety Ascending aorta [...] occupational status: employed 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 For lunch she [...] 95 Oxygen Delivery Method Room Air MDM [facility] MDM Narrative Medical decision making narrative: HISTORY [...] medical floor This note was generated with Lucidux dictation software. It may contain incorrect words, [...] your Primary Care Provider. Call [facility] ([phone]) or report to the closest Emergency Room. Call 911 if necessary. 04/04/242205 <Electronically signed by Gian Villanueva DO> Cosigner Signature (if applicable): CC: VJ Maloney ~ Signed [facility] Work Phone: [phone]) 877-992410-06-2023 History of Present illness Narrative* Helder Tavera [...] already. Additional Complaints: Chronic lymphedema- known to [facility] clinic locally, but has not been seen [...] or fail to improve. documented in this [facility]09-22-2023 Consult note Author Brandt Pierce [facility] August 21, 2023 10:48am Note Date/Time August 21, 2023 10:48am [facility] Medical Records Department [address] [place] [address] Counseling Note - Pharmacy 08/21/23 1047 MR#: [id number] Acct: [id number] Name: JESUSITA ENGLAND Rep #:[id number] 6 : 1970 53 From: Brandt Pierce PCP: VJ Maloney Status:ADM IN Y Location[place] [facility] HT178-1 Pharmacy [facility] Service has performed discharge medication reconciliation [...] Signature (if applicable): Date CC: ~ Signed [facility] Work Phone: [phone]) 344-904209-22-2023 Discharge summary [facility] August 21, 2023 8:32am Note Date/Time August 21, 2023 8:29am [facility] Medical Records Department [address] [place] [address] Discharge Summary 08/21/23 0827 MR#: [id number] Acct: [id number] Name: JESUSITA ENGLAND Rep #:[id number] 1 : 1970 53 From: Calderon Ware MD PCP: VJ Maloney Status:ADM IN [facility] Prov[facility] Date of Admission: 08/18/23 Date of [...] % (Auto) 69.7, Lymph % (Auto) 18.6L, [place] % (Auto) 9.9, Eos % (Auto) 0.2, [...] Self Care Charges/Coding Visit Charges Inpatient E&M: 59874 Disch Hosp >30min 08/21/23 0832 <Electronically signed by Calderon Ware MD> Cosigner Signature (if applicable): CC: Dr. Calderon Ware MD; VJ Maloney~ Signed [facility] Work Phone: 1(314) 798-847909-22-2023 [facility]09-21-2023 Progress note Author Wander Garcia [facility] August 20, 2023 10:50am Note Date/Time August 20, 2023 10:51am [facility] Medical Records Department [address] [place] [address] Progress Note - Infect Disease 08/20/23 1050 MR#: [id number] Acct: [id number] Name: JESUSITA ENGLAND RAMONA Rep #:[id number] 3 : 1970 53 From: Wander bledsoe MD PCP: VJ Maloney Status:ADM IN Location[place] [facility] EJ163-4 Physical Exam Narrative Feeling a little better, [...] days omnicef at discharge 300mg bid then fpc suppressive amox. will follow (2) Sepsis: 08/20/23 1050 <Electronically signed by Wander Garcia MD> Cosigner Signature (if applicable): CC: ~ Signed [facility] Work Phone: [phone]) 300-862909-21-2023 Progress note Author Calderon Ware [facility] August 20, 2023 10:02am Note Date/Time August 20, 2023 7:30am [facility] Medical Records Department [address] [place] [address] Progress Note - Hospitalist 08/20/23 0730 MR#: [id number] Acct: [id number] Name: JESUSITA ENGLAND Rep #:[id number] 5 : 1970 53 From: Calderon Ware MD PCP: VJ Maloney Status:ADM IN Location: [facility] KI768-0 Reason for Visit Reason for Visit: Diagnoses [...] (Auto) 76.4 H, Lymph % (Auto) 14.3L, [place] % (Auto) 8.5, Eos % (Auto) 0.0, [...] documentation, 35minutes Charges/Coding Visit Charges Inpatient E&M: 84924 Subs Hosp L2 08/20/23 1002 <Electronically signed by Calderon Ware MD> Cosigner Signature (if applicable): CC: ~ Signed [facility] Work Phone: [phone]) 585-744609-20-2023 Consult note Author Wander Garcia [facility] August 19, 2023 2:08pm Note Date/Time August 19, 2023 2:06pm [facility] Medical Records Department [address] [place] [address] Consultation - Infectious Dx 08/19/23 1404 MR#: [id number] Acct: [id number] Name: JESUSITA ENGLAND Rep #:[id number] 1 : 1970 53 From: Wander bledsoe MD PCP: VJ Maloney Status:ADM IN Location: [place] [address]-1 Assessment & Plan Assessment/Plan (1) Cellulitis: QUALIFIERS: [...] performed and neg except as noted above. 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 For lunch she [...] 79.4 H, Lymph % (Auto) 10.2 L, [place] % (Auto) 9.2, Eos % (Auto) 0.1, [...] MD> Cosigner Signature (if applicable): CC: Dr. Arthru Thompson MD; Dr. Wander Garcia MD; VJ Maloney~ Signed [facility] Work Phone: 1(446) 983-600309-20-2023 Progress note Author Calderon Ware [facility] August 19, 2023 10:41am Note Date/Time August 19, 2023 7:51am [facility] Medical Records Department [address] [place] [address] Progress Note - Hospitalist 08/19/23 0750 MR#: [id number] Acct: [id number] Name: JESUSITA ENGLAND Rep #:[id number] 0 : 1970 53 From: Calderon Ware MD PCP: VJ Maloney Status:ADM IN Location: [place] [address] Reason for Visit Reason for Visit: Diagnoses [...] 79.4 H, Lymph % (Auto) 10.2 L, [place] % (Auto) 9.2, Eos % (Auto) 0.1, [...] documentation, 35minutes Charges/Coding Visit Charges Inpatient E&M: 27855 Subs Hosp L2 08/19/23 1041 <Electronically signed by Calderon Ware MD> Cosigner Signature (if applicable): CC: ~ Signed [facility] Work Phone: 1(322) 549-598209-19-2023 Progress note Author Calderon Rowematt [facility] August 18, 2023 10:45am Note Date/Time August 18, 2023 7:42am [facility] Medical Records Department [address] [place] [address] Progress Note - Hospitalist 08/18/23 0738 MR#: [id number] Acct: [id number] Name: JESUSITA ENGLAND Rep #:[id number] 4 : 1970 53 From: Calderon Ware MD PCP: VJ Maloney Status:ADM [facility] Reason for Visit Reason for Visit: [...] (Auto) 90.9 H, Lymph % (Auto) 3.2L, [place] % (Auto) 5.0, Eos % (Auto) 0.0, [...] 90.8 H, Lymph % (Auto) 4.5 L, [place] % (Auto) 3.6, Eos % (Auto) 0.0, [...] 50 Minutes Charges/Coding Visit Charges Inpatient E&M: 93385 Subs Hosp L3 08/18/23 1045 <Electronically signed by Calderon Ware MD> Cosigner Signature (if applicable): CC: ~ Signed [facility] Work Phone: [phone]) 172-552309-19-2023 Discharge summary Author Mandy Arce [facility] August 18, 2023 3:05am Note Date/Time August 17, 2023 10:43pm [facility] Medical Records Department [address] [place] [address] Emergency Department Summary 08/17/23 MR#: [id number] Acct: [id number] Name: JESUSITA ENGLAND Rep #:[id number] 8 : 1970 53 From: Mandy Arce MD PCP: VJ Maloney Status:ADM IN Location: [address] History of Present Illness Chief Complaint: [...] develop a fever tonight up to 101.9. 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 For lunch she [...] 90.9 H Lymph % (Auto) 3.2 L [place] % (Auto) 5.0 Eos % (Auto) 0.0 [...] Provider] - Disposition Disposition: Acute Care Hospital [facility] What to do if you have Problems For any increased pain, shortness of breath, bleeding, nausea or vomiting, chestpain, or any unexpected problems, contact your Primary Care Provider. Call [facility] ([phone]) or report to the closest Emergency Room. Call 911 if necessary. 08/18/23 3950 <Electronically signed by Mandy Arce MD> Cosigner Signature (if applicable): CC: VJ Maloney ~ Signed [facility] Work Phone: [phone]) [phone] History and physical note Author Arthur Thompson [facility] August 18, 2023 12:50am Note Date/Time August 18, 2023 12:46am [facility] Medical Records Department [address] [place] [address] History & Physical Exam 08/18/23 0045 MR#: [id number] Acct: [id number] Name: JESUSITA ENGLAND Rep #:[id number] 2 : 1970 53 From: Arthur Thompson [...] July 31 [facility] and patient. She has [...] admitted for further IV antibiotics and fluid. [facility] Medical History Abnormal echocardiogram Anxiety [...] (Auto) 90.9 H, Lymph % (Auto) 3.2L, [place] % (Auto) 5.0, Eos % (Auto) 0.0, [...] weight heparin Charges/Coding Visit Charges Inpatient E&M: 46566 Init Hosp L2 08/18/23 0050 <Electronically signed by Arthur Thompson MD> Cosigner Signature (if applicable): CC: Dr. Arthur Thompson MD; VJ Maloney~ Signed [facility] Work Phone: 1(616) 324-654409-19-2023 [facility]09-01-2023 Discharge summary Author Betty Calvin [facility] July 31, 2023 9:46am Note Date/Time July 31, 2023 7:28am [facility] Medical Records Department [address] [place] [address] Discharge Summary 07/31/23 0722 MR#: [id number] Acct: [id number] Name: JESUSITA ENGLAND Rep #:[id number] 0 : 1970 53 From: Betty Calvin MD PCP: VJ Maloney Status:ADM IN [facility] Prov[facility] Date of Admission: 07/25/23 Date of Discharge: 07/31/23 Primary Care Physician: VJ Maloney Consultations 07/25/23 02:40 Consult: Onc/Wound/ip network architect Routine Comment: 07/27/23 11:53 Consult: Infectious Disease [...] obesity, recurrent lower extremity cellulitis presented to [facility] 07/25/2023 with bilateral lower extremity cellulitis [...] Neut % (Auto) 66.9, Lymph % (Auto)21.3, [place] % (Auto) 9.3, Eos % (Auto) 0.2, [...] to your preferred pharmacy on file the [facility] in [place] per our discussion -Please follow-up with Dr. [...] Self Care Charges/Coding Visit Charges Inpatient E&M: 56642 Disch Hosp >30min 07/31/23 0946 <Electronically signed by Betty Calvin MD> Cosigner Signature (if applicable): CC: Dr. Betty Calvin MD; JV Maloney~ Signed [facility] Work Phone: 1([phone]) 494-732409-01-2023 Discharge summary Author Betty Calvin [facility] July 31, 2023 9:46am Note Date/Time July 31, 2023 7:19am [facility] Medical Records Department [address] [place] [address] Instructions for Home/Discharge Instructions 07/31/23 0716 MR#: [id number] Acct: [id number] Name: JESUSITA ENGLAND Rep #:[id number] 3 : 1970 53 From: Betty Calvin [...] to your preferred pharmacy on file the [facility] in [place] per our discussion -Please follow-up with Dr. [...] Wander Garcia MD; VJ Maloney ~ Signed [facility] Work Phone: 1([phone]) 901-161509-01-2023 [facility]08-31-2023 Progress note Author Betty Calvin [facility] July 30, 2023 10:51am Note Date/Time July 30, 2023 8: 21am [facility] Medical Records Department [address] [place] [address] Progress Note - Hospitalist 07/30/2318 MR#: [id number] Acct: [id number] Name: JESUSITA ENGLAND Rep #:[id number] 2 : 1970 53 From: Betty Calvin MD PCP: VJ Maloney Status:ADM IN Location: [facility] DF266-6 Reason for Visit Reason for Visit: Diagnoses [...] % (Auto) 66.0, Lymph % (Auto) 20.6, [place] % (Auto) 11.2 H, Eos % (Auto) [...] extremities -Had echocardiogram done on 06/19/2021 at [facility] that showed normal EF and no significant [...] documentation, 36minutes Charges/Coding Visit Charges Inpatient E&M: 55734 Subs Hosp L2 07/30/23 1051 <Electronically signed by Betty Calvin MD> Cosigner Signature (if applicable): CC: ~ Signed [facility] Work Phone: 1([phone]) 294-593108-31-2023 Progress note Author Wander Garcia [facility] July 30, 2023 10:17am Note Date/Time July 30, 2023 10 :17am [facility] Medical Records Department [address] [place] [address] Progress Note - Infect Disease 07/30/23 1016 MR#: [id number] Acct: [id number] Name: JESUSITA ENGLAND Rep #:[id number] 2 : 1970 53 From: Wander bledsoe MD PCP: VJ Maloney Status:ADM IN Location: [address] Physical Exam Narrative Leg still sore, [...] for nonpurulent cellulitis, will need to consider fpc amox as prophylaxis and referral to edema clinic for prevention. Added antifungal powder to skin folds. Both legs slowly improving, less red. Ok for home with 10 days omnicef 300mg bid, ID followup in 2 weeks. Will follow 07/30/23 1017 <Electronically signed by Wander Garcia MD> Cosigner Signature (if applicable): CC: ~ Signed [facility] Work Phone: 1(179) 180-641808-30-2023 Progress note Author Wander Garcia [facility] July 29, 2023 4:06pm Note Date/Time July 29, 2023 4: 06pm [facility] Medical Records Department [address] [place] [address] Progress Note - Infect Disease 07/29/23 1605 MR#: [id number] Acct: [id number] Name: JESUSITA ENGLAND Rep #:[id number] 0 : 1970 53 From: Wander bledsoe MD PCP: VJ Maloney Status:ADM IN [facility] Physical Exam Narrative Some pain in legs, [...] for nonpurulent cellulitis, will need to consider fpc amox as prophylaxis and referral to edema clinic for prevention. Added antifungal powder to skin folds. Both legs slowly improving, less red. Will follow 07/29/23 1606 <Electronically signed by Wander Garcia MD> Cosigner Signature (if applicable): CC: ~ Signed [facility] Work Phone: 1(964) 333-123508-30-2023 Progress note Author Betty Calvin [facility] July 29, 2023 9:14am Note Date/Time July 29, 2023 8: 10am [facility] Medical Records Department [address] [place] [address] Progress Note - Hospitalist 07/29/23807 MR#: [id number] Acct: [id number] Name: JESSUITA ENGLAND Rep #:[id number] 0 : 1970 53 From: Betty Calvin MD PCP: VJ Maloney Status:ADM IN Location: [facility] HS459-7 Reason for Visit Reason for Visit: Diagnoses [...] (Auto) 69.9, Lymph % (Auto) 17.9 L, [place] % (Auto) 10.9 H, Eos % (Auto) [...] extremities -Had echocardiogram done on 06/19/2021 at [facility] that showed normal EF and no significant [...] documentation, 36minutes Charges/Coding Visit Charges Inpatient E&M: 71556 Subs Hosp L2 07/29/23 0914 <Electronically signed by Betty Calvin MD> Cosigner Signature (if applicable): CC: ~ Signed [facility] Work Phone: 1(115) 198-546108-29-2023 Progress note Author Betty Calvin [facility] July 28, 2023 1:16pm Note Date/Time July 28, 2023 1: 16pm [facility] Medical Records Department [address] [place] [address] Progress Note - Hospitalist 07/28/23 1313 MR#: [id number] Acct: [id number] Name: JESUSITA ENGLAND Rep #:[id number] : 1970 53 From: Betty Calvin MD PCP: VJ Maloney Status:ADM IN Location: [place] [address]1 Reason for Visit Reason for Visit: Diagnoses [...] 71.0 H, Lymph % (Auto) 16.6 L, [place] % (Auto) 11.3 H, Eos % (Auto) [...] extremities -Had echocardiogram done on 06/19/2021 at [facility] that showed normal EF and no significant [...] documentation, 36minutes Charges/Coding Visit Charges Inpatient E&M: 09984 Subs Hosp L2 07/28/23 1316 <Electronically signed by Betty Calvin MD> Cosigner Signature (if applicable): CC: ~ Signed ADDENDUM by Dr. Betty Calvin MD on 07/28/23 at 1316 Visit Charges Inpatient E&M: 31782 Subs Hosp L2 07/28/23 1316<Electronically signed by Betty Calvin MD> Cosigner Signature (if applicable): cc: ~* Signed [facility] Work Phone: 1(802) 498-469808-29-2023 Progress note Author Wander Garcia [facility] July 28, 2023 10:30am Note Date/Time July 28, 2023 10 :30am [facility] Medical Records Department [address] [place] [address] Progress Note - Infect Disease 07/28/23 1028 MR#: [id number] Acct: [id number] Name: JESUSITA ENGLAND Rep #:[id number] : 1970 53 From: Wander bledsoe MD PCP: VJ Maloney Status:ADM IN Location: [place]3 AH667-4 Physical Exam Narrative Feeling about the same, [...] for nonpurulent cellulitis, will need to consider fpc amox as prophylaxis and referral to edema clinic for prevention. Will add antifungal powder to skin folds Will follow 07/28/23 1030 <Electronically signed by Wander Garcia MD> Cosigner Signature (if applicable): CC: ~ Signed [facility] Work Phone: [phone]) 651-228608-28-2023 Consult note Author Wander Limonninger [facility] July 27, 2023 2:03pm Note Date/Time July 27, 2023 2: 03pm [facility] Medical Records Department [address] [place] [address] Consultation - Infectious Dx 07/27/23 1358 MR#: [id number] Acct: [id number] Name: JESUSITA ENGLAND Rep #:[id number] : 1970 53 From: Wander bledsoe MD PCP: VJ Maloney Status:ADM IN Location: [place] [address] Assessment & Plan Assessment/Plan (1) Lymphedema associated with obesity: (2) Cellulitis: PLAN: recurrent RLE cellulitis, now developed LLE cellulitis on outpt doxy/keflex. Improving here on vanc/zosyn. Will narrow to ceftriaxone for nonpurulent cellulitis, will need to consider fpc amox as prophylaxis and referral to edema [...] performed and neg except as noted above. [facility] Medical History Abnormal echocardiogram Anxiety [...] a small breakfast on the way to work....[employer] or a breakfast bar. For lunch she [...] 73.7 H, Lymph % (Auto) 14.6 L, [place] % (Auto) 10.7 H, Eos % (Auto) [...] 10:13 EDT Reading Location ID and State: [address] [place] [address] , Service support , 07/27/23 1403 <Electronically signed by Wander Garcia MD> Cosigner Signature (if applicable): CC: Dr. Adrianna Mejia DO; Dr. Wander Garcia MD; VJ Maloney~ Signed [facility] Work Phone: 1([phone]) 502-892108-28-2023 Progress note Author Betty Calvin [facility] July 27, 2023 11:56am Note Date/Time July 27, 2023 9: 38am [facility] Medical Records Department [address] [place] [address] Progress Note - Hospitalist 07/27/23 0936 MR#: [id number] Acct: [id number] Name: JESUSITA ENGLAND Rep #:[id number] : 1970 53 From: Betty Calvin MD PCP: VJ Maloney Status:ADM IN Location: [place]3 KM598-0 Reason for Visit Reason for Visit: Diagnoses [...] 73.7 H, Lymph % (Auto) 14.6 L, [place] % (Auto) 10.7 H, Eos % (Auto) [...] extremities -Had echocardiogram done on 06/19/2021 at [facility] that showed normal EF and no significant [...] on admission Charges/Coding Visit Charges Inpatient E&M: 94627 Subs Hosp L2 07/27/23 1156 <Electronically signed by Betty Calvin MD> Cosigner Signature (if applicable): CC: ~ Signed [facility] Work Phone: 1(710) 575-259008-27-2023 Progress note Author Betty Calvin [facility] July 26, 2023 11:44am Note Date/Time July 26, 2023 8: 54am [facility] Medical Records Department [address] [place] [address] Progress Note - Hospitalist 07/26/23 0850 MR#: [id number] Acct: [id number] Name: JESSUITA ENGLAND Rep #:[id number] : 1970 53 From: Betty Calvin MD PCP: VJ Maloney Status:ADM [facility] Reason for Visit Reason for Visit: Diagnoses [...] (Auto) 84.5 H, Lymph % (Auto) 8.3L, [place] % (Auto) 6.5, Eos % (Auto) 0.0, [...] (Auto) 71.0 H, Lymph % (Auto) 17.4L, [place] % (Auto) 10.6 H, Eos % (Auto) [...] extremities -Had echocardiogram done on 06/19/2021 at [facility] that showed normal EF and no significant [...] documentation, 36minutes Charges/Coding Visit Charges Inpatient E&M: 74693 Subs Hosp L2 07/26/23 1144 <Electronically signed by Betty Calvin MD> Cosigner Signature (if applicable): CC: ~ Signed [facility] Work Phone: 1(451) 424-597408-27-2023 Consult note Author Cole Kelly [facility] July 26, 2023 3:26am Note Date/Time July 26, 2023 3: 26am [facility] Medical Records Department [address] [place] [address] Pharmacokinetic/Renal -Consult 07/26/23324 MR#: [id number] Acct: [id number] Name: JESUSITA ENGLAND Rep #:[id number] : 1970 53 From: Cole Melton od PCP: VJ Maloney Status:ADM IN Y Location: [place] [address] Consult Antibiotic Management Pharmacy has been consulted [...] Signature (if applicable): Date CC: ~ Signed [facility] Work Phone: 1(638) 920-899908-26-2023 Progress note Author Betty Calvin [facility] July 25, 2023 2:12pm Note Date/Time July 25, 2023 8: 31am [facility] Medical Records Department [address] [place] [address] Progress Note - Hospitalist 07/25/23826 MR#: [id number] Acct: [id number] Name: JESUSITA ENGLAND Rep #:[id number] : 1970 53 From: Betty Calvin MD PCP: VJ Maloney Status:ADM IN Location: MS3 ZM465-7 Reason for Visit Reason for Visit: Diagnoses [...] 84.5 H, Lymph % (Auto) 8.1 L, [place] % (Auto) 6.7, Eos % (Auto) 0.0, [...] 89.3 H, Lymph % (Auto) 4.5 L, [place] % (Auto) 5.5, Eos % (Auto) 0.0, [...] extremities -Had echocardiogram done on 06/19/2021 at [facility] that showed normal EF and no significant [...] Cosigner Signature (if applicable): CC: ~ Signed [facility] Work Phone: 1(877) 264-275508-26-2023 Consult note Author Cole Kelly [facility] July 25, 2023 6:04am Note Date/Time July 25, 2023 6: 04am [facility] Medical Records Department [address] [place] [address] Pharmacokinetic/Renal -Consult 07/25/23603 MR#: [id number] Acct: [id number] Name: JESUSITA ENGLAND Rep #:[id number] : 1970 53 From: Cole Melton od PCP: VJ Maloney Status:ADM IN Y Location: [place] [address] Consult Antibiotic Management Pharmacy has been consulted [...] Signature (if applicable): Date CC: ~ Signed [facility] Work Phone: [phone]) [phone] History and physical note Author Adrianna Mejia [facility] July 25, 2023 1:10am Note Date/Time July 25, 2023 12 :48am [facility] Medical Records Department [address] [place] [address] H&P Exam - Hospitalist 07/25/23 0044 MR#: [id number] Acct: [id number] Name: JESUSITA ENGLAND Rep #:[id number] : 1970 53 From: Adrianna Mejia DO PCP: VJ Maloney Status:ADM IN Location: [place] [address] HPI - General General Date of Admission: 07/25/23 Date of Service: 07/25/23 Chief Complaint: LLE Redness HPI Narrative JESUSITA ENGLAND, is a 53 F who presented to the emergency department at [facility] late in the evening on 07/24/2023 [...] antibiotics and request for admission was made. [facility] Medical History Abnormal echocardiogram Anxiety [...] a small breakfast on the way to work....[employer] or a breakfast bar. For lunch she [...] 84.5 H, Lymph % (Auto) 8.1 L, [place] % (Auto) 6.7, Eos % (Auto) 0.0, [...] extremities -Had echocardiogram done on 06/19/2021 at [facility] that showed normal EF and no significant [...] on admission Charges/Coding Visit Charges Inpatient E&M: 90558 Init Hosp L2 07/25/23 0110 <Electronically signed by Adrianna Mejia DO> Cosigner Signature (if applicable): CC: Dr. Adrianna Mejia DO; VJ Maloney~ Signed [facility] Work Phone: 1(650) 768-274008-26-2023 History and physical note Author Adrianna Mejia [facility] July 25, 2023 1:10am Note Date/Time July 25, 2023 12 :48am [facility] Medical Records Department [address] [place] [address] H&P Exam - Hospitalist 07/25/23 0044 MR#: [id number] Acct: [id number] Name: JESUSITA ENGLAND Rep #:[id number] : 1970 53 From: Adrianna Mejia DO PCP: VJ Maloney Status:ADM IN Location: [place] [address] HPI - General General Date of Admission: 07/25/23 Date of Service: 07/25/23 Chief Complaint: LLE Redness HPI Narrative JESUSITA ENGLAND, is a 53 F who presented to the emergency department at [facility] late in the evening on 07/24/2023 [...] antibiotics and request for admission was made. [facility] Medical History Abnormal echocardiogram Anxiety [...] a small breakfast on the way to work....[employer] or a breakfast bar. For lunch she [...] 84.5 H, Lymph % (Auto) 8.1 L, [place] % (Auto) 6.7, Eos % (Auto) 0.0, [...] extremities -Had echocardiogram done on 06/19/2021 at [facility] that showed normal EF and no significant [...] on admission Charges/Coding Visit Charges Inpatient E&M: 61825 Init Hosp L2 07/25/23 0110 <Electronically signed by Adrianna Mejia DO> Cosigner Signature (if applicable): CC: Dr. Adrianna Mejia DO; VJ Maloney~ Signed [facility] Work Phone: [phone]) [phone] Discharge summary Author Arthur Lara [facility] July 25, 2023 12:14am Note Date/Time July 24, 2023 11 :14pm [facility] Medical Records Department [address] [place] [address] Emergency Department Summary 07/24/23 MR#: [id number] Acct: [id number] Name: JESUSITA ENGLAND Rep #:[id number] : 1970 53 From: Arthur Lara [...] feel weak. 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 For lunch she [...] 84.5 H Lymph % (Auto) 8.1 L [place] % (Auto) 6.7 Eos % (Auto) 0.0 [...] Provider] - Disposition Disposition: Acute Care Hospital [facility] What to do if you have Problems For any increased pain, shortness of breath, bleeding, nausea or vomiting, chestpain, or any unexpected problems, contact your Primary Care Provider. Call [facility] ([phone]) or report to the closest Emergency Room. Call 911 if necessary. 07/25/23 001 <Electronically signed by Arthur Lara MD> Cosigner Signature (if applicable): CC: VJ Maloney ~ Signed [facility] Work Phone: 1([phone]) 454-222408-26-2023 Discharge summary Author Arthur Lara [facility] July 25, 2023 12:14am Note Date/Time July 24, 2023 11 :14pm [facility] Medical Records Department [address] [place] [address] Emergency Department Summary 07/24/23 MR#: [id number] Acct: [id number] Name: JESUSITA ENGLAND Rep #:[id number] : 1970 53 From: Arthur Lara [...] feel weak. 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 For lunch she [...] 84.5 H Lymph % (Auto) 8.1 L [place] % (Auto) 6.7 Eos % (Auto) 0.0 [...] Provider] - Disposition Disposition: Acute Care Hospital [facility] What to do if you have Problems For any increased pain, shortness of breath, bleeding, nausea or vomiting, chestpain, or any unexpected problems, contact your Primary Care Provider. Call [facility] ([phone]) or report to the closest Emergency Room. Call 911 if necessary. 07/25/23 0014 <Electronically signed by Arthur Lara MD> Cosigner Signature (if applicable): CC: VJ Maloney ~ Signed [facility] Work Phone: [phone]) [phone] Hospital Discharge instructions Additional Instructions Ultrasound negative for DVT. Recurrent cellulitis right lower extremity. White count 14.9. Lactic acid normal at 1.6. Your erythema has been outlined. Take antibiotic as prescribed. Follow-up with your doctor closely. Return if worsening symptoms.[facility] Work Phone: [phone]) [phone] NoteChief Complaint An interactive audio and video [...] instruction: Good Anticipated Complianc (more content not included)...[facility] [id number] Note [facility]08-04-2021 History of Present illness Narrative* Nargis Bhat RN - 07/03/2021 5:48 PM EDT Pt PICC line removed. Pt discharge report called to Juan J Haq RN. Pt belongings packed and transported with patient. Pt family aware of discharge to rehab. Pt transported via [employer] [facility]. * Humaira Michael MD - 07/03/2021 8:52 AM EDT Images from the original note were not included. [facility], Pulmonary Critical Care and Sleep Medicine Patient - Jesusita England, Age - 51 y.o. - 1970 Room Number - [id number] Consulting - Ruth Soni DO Primary Care [...] Pressure injury of right buttock, stage 3 ([facility]) [L89.313] Insomnia [G47.00] Gastroesophageal reflux disease without [...] -Will be sent to IP rehab in [place] 07/03 Anemia with low MCV 2/2 iron [...] will be sent to [facility] rehab in [place] today 07/03 pending TCC note - Goals [...] Progress Note Patient: Jesusita England Room number: [id number] Date of Admit: 06/03/2021 LOS: 29 days [...] as directed. [facility] Lat[facility] Kay MD Pager [phone] [facility] [phone] HPI: Jesusita England is a 51 y.o. [...] Date 07/02/21 0000 - 07/02/21 2359 Shift 4145-4262 8979-2046 9124-9730 24 Hour Total INTAKE P.O.(mL/kg/hr) 200 200 [...] 358 (H) 06/21/2021 No results found for: [id number] Recent Labs 06/30/2120107/01/2132207/02/21 05 NA 134* 135 [...] from the original note were not included. [facility], Pulmonary Critical Care and Sleep Medicine Patient - Jesusita England, Age - 51 y.o. - 1970 Room Number - [id number] Consulting - Ruth Soni DO Primary Care [...] 07/01/2021 MSSA (methicillin susceptible Staphylococcus aureus) pneumonia ([facility]) [J15.211] 07/01/2021 Obstructive sleep apnea syndrome [G47.33] 06/30/2021 Body mass index (BMI) of 70 or greater in adult ([facility]) [Z68.45] 06/30/2021 Morbid obesity ([facility]) [E66.01] 06/30/2021 MIRIAM (acute kidney injury) ([facility]) [N17.9] Hyponatremia [E87.1] Poor intravenous access [Z78.9] Pressure injury of right buttock, stage 3 ([facility]) [L89.313] Insomnia [G47.00] Gastroesophageal reflux disease without [...] Progress Note Patient: Jesusita England Room number: [id number] Date of Admit: 06/03/2021 LOS: 28 days [...] to 1500 mL Latosha Kay MD Pager [phone] [facility] [phone] HPI: Jesusita England is a 51 y.o. [...] Date 07/01/21 0000 - 07/01/21 2359 Shift 4086-9296 4779-5290 4895-5053 24 Hour Total INTAKE P.O.(mL/kg/hr) 400(0.3) 400 [...] 358 (H) 06/21/2021 No results found for: [id number] Recent Labs 06/29/21 0630 06/30/21 0202 07/01/21 [...] 6.4 (H) 07/01/2021 No components found for: WORI97U No results for input(s): COLORU, CLARITYU, PH, [...] decreased to 2 Liters today. Plans for [place] [facility] per TCC notes. Nephro following: ARF - likely due to ATN from Vancomycin toxicity and intravascular volume depletion. Pt endorses good intake/appetite, discussed with RD phosphorus restriction; RD provided low phosphorus nutrition information, written and oral. Malnutrition Assessment: Malnutrition Status: At risk for malnutrition (Comment) (pt extubated and tolerating oral diet without issues, SHREDDER TENDER PEAT following- regular/thin liquids recommendations, pt weight has remained stable during admit, no significant physical signs) Context: Acute Estimated Daily Nutrient Needs: Energy (kcal): 1250-1420kcals/day; Weight Used for Energy Requirements: John Day Protein (g): 68-85gm pro/day; Weight Used for Protein Requirements: [place] Day Fluid (ml/day): per MD Recommendations; Method Used [...] Weight: 418 lb (189.6 kg) (05/31/20 per [facility]) John Day Body Weight: 125 lbs; % John Day Body Weight 335.2 % BMI: 69.7 Adjusted [...] Planning: Too soon to determine Contact: Pager #[phone] * Gutiérrez Senia Carolann, CELL OPERATION SUPERVISOR - 07/01/2021 10:33 AM EDT Physical Therapy Facility/Department: [facility] Daily Treatment Note NAME: Jesusita England [...] (gastroesophageal reflux disease), Joint pain, Morbid obesity ([facility]), and MIGUEL (obstructive sleep apnea). has a past surgical history that includes Cholecystectomy; hip surgery; and Heel spur surgery. Restrictions Restrictions/Precautions Restrictions/Precautions: Fall Risk Required Braces or Orthoses?: No Position Activity Restriction Other position/activity restrictions: COVID 19- off isolation; [facility] bed; 3LO2 [place]; [facility] Subjective General Chart Reviewed: Yes Family / [...] I.S. x 10 reps, 1,000-1,250 AM-PAC Score [facility] Inpatient Mobility Raw Score : 7 (07/01/211032) [...] and aerosols; PRN, may not be needed senior care 3 Volume management per nephrology 4 Incentive [...] mL/hr (06/24/212109) sodium chloride 25 mL (06/16/21 0935) PRN meds used in last 24hrs: NA [...] PROGRESS NOTE PATIENT NAME: Jesusita England ROOM: [address] [place] [address] SERVICE DATE: 06/30/2021 SERVICE TIME: 12:57 PM LENGTH OF STAY: 27 day(s) REFERRING PHYSICIAN: Ruth Soni DO PRIMARY CARE PHYSICIAN: No primary care provider on file. OUTPATIENT A R SPECIALIST: None ACTIVE & BACKGROUND PROBLEM LIST: 1. [...] and make BiPAP setting to reflect. Pager: [phone] Associated attestation - Kleber Toure DO - [...] PROGRESS NOTE PATIENT NAME: Jesusita England ROOM: [facility] SERVICE DATE: 06/29/2021 SERVICE TIME: 3:24 PM LENGTH OF STAY: 26 day(s) REFERRING PHYSICIAN: Ruth Soni DO PRIMARY CARE PHYSICIAN: No primary care provider on file. OUTPATIENT A R SPECIALIST: None ACTIVE & BACKGROUND PROBLEM LIST: 1. [...] fluid restriction per Nephrology -Agree Hyperphosphatemia 2/2 IMRIAM -Phos 6.3 this AM, up from 5.7 [...] cath -Agree Dysphagia/ Post extubation dysphagia - SHREDDER TENDER PEAT therapy following - Protonix 40 mg po [...] PROGRESS NOTE PATIENT NAME: Jesusita England ROOM: [address] [place] [address] SERVICE DATE: 06/28/2021 SERVICE TIME: 7:16 PM LENGTH OF STAY: 25 day(s) REFERRING PHYSICIAN: Ruth Soni DO PRIMARY CARE PHYSICIAN: No primary care provider on file. OUTPATIENT A R SPECIALIST: None ACTIVE & BACKGROUND PROBLEM LIST: 1. [...] Date 06/28/21 0000 - 06/28/21 2359 Shift 6379-8227 5591-6479 7255-9462 24 Hour Total INTAKE P.O.(mL/kg/hr) 800(0.5) 800 [...] MANDY PATRICK - 06/28/2021 6:40 PM EDT [facility] Respiratory Care Department Progress Note As [...] care of this patient, * Senia Gutiérrez, CELL OPERATION SUPERVISOR - 06/28/2021 2:42 PM EDT Physical Therapy Facility/Department: [facility] Daily Treatment Note NAME: Jesusita England [...] position/activity restrictions: COVID 19- off isolation; [facility]; 2LO2 [place]; lucho Subjective [...] Pumps: x 10 reps each AM-PAC Score [facility] Inpatient Mobility Raw Score : 7 (06/28/21 144) AM-[facility] Inpatient T-Scale Score : 26.42 (06/28/21 144) [...] (tpx2) Senia Gutiérrez PTA * Lanny Mejia, COORDINATE MEASURING MACHINE OPERATOR - SENIOR ACCOUNTANT CPA - 06/28/2021 1:28 PM EDT Images from the original note were not included. [facility] Wound Care Follow up Note Jesusita England AGE: 51 y.o. GENDER: female : 1970 EPISODE DATE: Subjective: HISTORY of PRESENT ILLNESS HPI Jesusita England is a 51 y.o. female who presents for a wound follow up. History of Wound Context: Patient presented 3 weeks ago as a transfer from [facility] due to level of care benefits at [...] she needed medical evaluation. [facility] Interval History: The patient [...] in no acute distress Lower back: improved. 4j9akwd yellow slough with surrounding pink tissue. Fungal [...] from the original note were not included. [facility], Pulmonary Critical Care and Sleep Medicine Patient - Jesusita England, Age - 51 y.o. - 1970 Room Number - [id number] Consulting - Ruth Soni DO Primary Care Physician - No primary care provider on file. 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 Pager: [phone] I spent over 51% total time of 40 minutes counseling (or coordinating care). Discussed current planof care with patient. Coordinated care with resident team. * Latosha Kay P - 06/27/2021 3:22 PM EDT Images from the original note were not included. Nephrology Progress Note Patient: Jesusita England Room number: [id number] Date of Admit: 06/03/2021 LOS: 24 days [...] was extubated 06/18 and transferred to the [facility] and has remained on 5L [place]. Her [...] cystitis, and staph hominis bacteremia. Consulted for MIIRAM and hyponatremia. In terms of MIRIAM, no [...] Got 1 dose lasix (06/25), last na [id number]. Will not give IVF or lasix for now unless acutely indicated. Her o2 reqts have come down, continue FR. Dr april Araujo will be covering 06/18-06/30, I will be back Thursday Latosha Kay MD Pager [phone] [facility] [phone] HPI: Jesusita England is a 51 y.o. [...] Date 06/27/21 0000 - 06/27/21 2359 Shift 7391-0016 4139-7352 1527-3817 24 Hour Total INTAKE Shift Total(mL/kg) OUTPUT [...] 358 (H) 06/21/2021 No results found for: [id number] Recent Labs 06/25/21 0349 06/25/21 1405 06/25/21 [...] 4.8 (H) 06/27/2021 No components found for: [id number] Recent Labs 06/26/21 1520 COLORU Yellow LABSPEC 1.007 GLUCOSEU Normal LEUKOCYTESUR Negative BILIRUBINUR Negative UROBILINOGEN Normal RBCUA 3-5* WBCUA 3-5 BACTERIA Moderate* Diagnostic Studies: CXR: reviewed in PACS. Personally reviewed available data [labs, MARS, radiologic studies, and electronic records]. Pleasecall with any questions. * Senia Gutiérrez, CELL OPERATION SUPERVISOR - 06/27/2021 3:05 PM EDT Physical Therapy Facility/Department: [facility] Daily Treatment Note NAME: Jesusita England [...] reps each G-Code OutComes Score AM-PAC Score AM-[facility] Inpatient Mobility Raw Score : 7 (06/27/21 1505) AM-[facility] Inpatient T-Scale Score : 26.42 (06/27/21 1505) [...] - per social work note, insurance denied [facility]; will try snf Anemia with [...] external cath Dysphagia/ Post extubation dysphagia - SHREDDER TENDER PEAT therapy following - Protonix 40 mg po [...] given by consultants and care team. Pager: [phone] I spent over 51% total time of 43 minutes counseling (or coordinating care). Discussed current planof care with patient. Coordinated care with resident team. Also discussed with respiratory therapy. * Amie Chaidez, SHREDDER TENDER PEAT - 06/26/2021 3:50 PM EDT Speech Language Pathology Facility/Department: [facility] Dysphagia Daily Treatment Note NAME: Jesusita [...] Trials: Thin Single and sequential straw sips Osino NA Honey NA Puree NA Solid Fredrick [...] 15:20 Time out: 15:40 Amie Chaidez MA, CCC-SHREDDER TENDER PEAT * Monae Huang, DO - 06/26/2021 8:35 [...] downtrend, monitor Dysphagia/ Post extubation dysphagia - SHREDDER TENDER PEAT therapy following - Protonix 40 mg po [...] She is asking that I do a Btlh-za-Ukaz for Rehab from insurance as rehabilitation coordinator (cody Serrano) thinks they can help her a lot. I will reach out to [facility] to help start that process. Patient currently [...] very weak, SW following for placement at [facility] as pt was denied by [...] extubated and tolerating oral diet without issues, SHREDDER TENDER PEAT following- regular/thin liquids recommendations, pt weight has [...] 418 lb (189.6 kg) (05/31/20 per EPIC) John Day Body Weight: 125 lbs; % John Day Body Weight 335.2 % BMI: 69.7 Adjusted [...] Planning: Too soon to determine Contact: pager [phone] or PerfectServe * Monae Huang DO - [...] IP rehab - per social work note, [facility] will accept pt (pending insurance [...] downtrend, monitor Dysphagia/ Post extubation dysphagia - SHREDDER TENDER PEAT therapy following - Protonix 40 mg po [...] I have discussed the care of Jesusita Egnland with the medical student and/or resident. I [...] show Na<5). - respiratory status improving. Pager: [phone] I spent over 51% total time of 27 minutes counseling (or coordinating care). Discussed current planof care with patient. Coordinated care with resident team. * Khai Curtis, CELL OPERATION SUPERVISOR - 06/24/2021 3:12 PM EDT Physical Therapy Facility/Department: [facility] Daily Treatment Note NAME: Jesusita England : 1970 Date of Service: 06/24/2021 Discharge Recommendations: LTACH PT Equipment Recommendations Equipment Needed: No Other: tbd Assessment Body structures, Functions, Activity limitations: Decreased functional mobility ;Decreased ADL status;Decreased strength;Decreased balance;Decreased endurance Assessment: Pt had just finsihed standing trails w/ OT upon CELL OPERATION SUPERVISOR arrival today, but agreeable to learning [...] Other position/activity restrictions: COVID 19- off isolation; [facility] bed; 5LO2 NC; Subjective General Chart Reviewed: Yes Response To Previous Treatment: Patient with no complaints from previous session. Subjective Subjective: Pt just getting laid down in bed w/ OT upon CELL OPERATION SUPERVISOR arrival. Pt agreeable to PT. nsg cleared pt for PT. 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 Share cooking, [...] /ADL, Safety Education & Training OutComes Score AM-[facility] Daily Activity Inpatient How much help for [...] much help for eating meals?: A Little AM-[facility] Inpatient Daily Activity Raw Score: 13 AM-[facility] Inpatient ADL T-Scale Score : 32.03 ADL Inpatient CMS 0-100% Score: 63.03 ADL Inpatient CMS G-Code Modifier : CL AM-PAC Score AM-PAC Inpatient Daily Activity Raw Score: 13 (06/24/21 145) AM-[facility] Inpatient ADL T-Scale Score : 32.03 (06/24/211453) [...] Plan of Care supervision is transferred to [facility] Occupational Therapist. This provider wore an N95, [...] 11:00 AM EDT Speech Language Pathology Facility/Department: [facility] Dysphagia Treatment Note NAME: Jesusita England [...] small sips, and respiratory breaks as needed. SHREDDER TENDER PEAT will continue to follow with dysphagia plan [...] Intracatheter Q8H Continuous Infusions: dextrose 100 mL/hr (06/22/218) sodium chloride 25 mL (06/16/21 0928) PRN [...] minced and moist diet with thin liquids. SHREDDER TENDER PEAT will continue to follow with dysphagia plan [...] patient very motivated to get better. Pager: [phone] I spent over 51% total time of [...] Q8H Continuous Infusions: dextrose 100 mL/hr (06/22/21 6761) sodium chloride 25 mL (06/16/21 4296) PRN meds used in last 24hrs: dextrose [...] for patient to do IP Rehab at [facility] (where sister works as a nurse). PT discharge recomm on 06/20 to LTACH. LTACH refused. Looking into [facility].. -work with PT - once able to [...] minced and moist diet with thin liquids. SHREDDER TENDER PEAT will continue to follow withdysphagia plan of [...] nausea, and diarrhea. - monitor Cr Pager: [phone] I spent over 51% total time of 44 minutes counseling (or coordinating care). Discussed current planof care with patient. Coordinated care with resident team. Also discussed with sister as per above. * Carrie Cardenas - 06/22/2021 12:59 PM EDT [facility] Respiratory Care Department Progress Note As part [...] - Currently, laying in bed doing well. SHREDDER TENDER PEAT saw her yesterday and advanced her diet. [...] for patient to do IP Rehab at [facility] (where sister works as a nurse). -work [...] minced and moist diet with thin liquids. SHREDDER TENDER PEAT will continue to follow withdysphagia plan of [...] IP Rehab in out of town (? [facility]) - she is hoping patient will qualify for IP Rehab for discharge to her facility. Pager: [phone] I spent over 51% total time of 49 minutes counseling (or coordinating care). Discussed current planof care with patient. Coordinated care with resident team. Also d/w sister over the phone at bedside per patient's request * MANDY PATRICK - 06/21/2021 5:19 PM EDT [facility] Respiratory Care Department Progress Note As [...] 3:00 PM EDT Speech Language Pathology Facility/Department: [facility] Dysphagia Treatment Note NAME: Jesusita England [...] small sips, and respiratory breaks as needed. SHREDDER TENDER PEAT will continue to follow with dysphagia plan [...] from the original note were not included. [facility] - Infectious Diseases Attending Progress Note Subjective: [...] hypoxic respiratory failure - dx 06/02 in [facility] - sx onset 1 week prior [...] not included. Med Team Progress Note Jesusita nEgland : 1970(51 y.o.) Date: June 21, 2021 Med Team: C Attending: Dr. Sellers Chief Complaint: Shortness of breath Subjective: - No acute events overnight. - Currently, doing well. Having some dysphagia with minced food. Improved shortness of breath. Currently on 6 L high flow o2. Dysphagia c/f potential aspiration but SHREDDER TENDER PEAT following and assessing dysphagia. Review of Systems [...] minced and moist diet with thin liquids. SHREDDER TENDER PEAT will continue to follow withdysphagia plan of [...] minced and moist diet with thin liquids. SHREDDER TENDER PEAT will continue to follow withdysphagia plan of [...] to rise. Remainder per residents note Pager: [phone] I spent over 51% total time of 49 minutes counseling (or coordinating care). Discussed current planof care with patient. Coordinated care with resident team. * Gisel Saleh RN - 06/21/2021 12:07 AM EDT Pt transferred to [facility]. Belongings with patient. Family notified prior to leaving from visiting. RN at bedside when transferred. * Eladia Scanlon MD - 06/20/2021 10:17 PM EDT Images from the original note were not included. [facility] - Infectious Diseases Attending Progress Note Subjective: [...] hypoxic respiratory failure - dx 06/02 in [facility] - sx onset 1 week prior [...] Care Encounter - full code - sisterMaggie ([phone]), who is RN, is primary point of [...] needs after this visit, anticipate transfer to [facility] and then transition to out rehabilitation center [...] at home until she was admitted to [facility] in [place]. She recevied treatment there, as noted by [...] no myoclonus Psychiatric: not anxious or agitated Silt Symptom Assessment Score Silt Score Pain Score 0 Tiredness Score 3 [...] Lopez MD - 06/20/2021 6:07 PM EDT [facility] Palliative Care Transitions of Care Note [...] at home until she was admitted to [facility] in [place]. She recevied treatment there, as noted by [...] pain. Patient agreeable to minimal trials with SHREDDER TENDER PEAT. O: Assess diet tolerance A: Patient accepted [...] respiratory rate throughout PO intake this date. SHREDDER TENDER PEAT offered patient upgrade trials; patient politely declined. [...] minced and moist diet with thin liquids. 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 Spouse was also diagnosed with COVID-recovered. Cognition Cognition Overall Cognitive Status: [facility] Objective Observation/Palpation Posture: Fair Observation: pressure ulcer [...] place: No G-Code OutComes Score AM-PAC Score AM-[facility] Inpatient Mobility Raw Score : 6 (06/20/21 1021) AM-[facility] Inpatient T-Scale Score : 23.55 (06/20/21 1021) [...] Plan of Care supervision is transferred to [facility] Rehab Department Physical Therapist. Therapy Time [...] Conjunctiva []Injected [x]Non-Injected Pinnae []Normal []Other Dentitian []Andreafski Teeth []Dentures Oral Mucosa [x]Pennock []Moist []Dry Oral ETT []Present [x]Absent Neck: [...] [x]Absent STEELE ([x]RUE [x]RLE [x]LUE [x]LLE) Neurologic: [place] []Yes [x]No Corneal reflexes []Present []Absent Plantar [...] 06/18/21 0619 06/19/21 0246 PHART 7.503* 7.517* [id number] 41.5 41.3 PO2ART 73.2* 53.7* XQF5CCK 31.9* 32.7* [id number] 93.9* 87.9* FIO2A 50% 30% Lactic Acid: [...] from the original note were not included. [facility] - Infectious Diseases Attending Progress Note Subjective: [...] hypoxic respiratory failure - dx 06/02 in [facility] - sx onset 1 week prior [...] a Minced and Moist Diet/Thin Liquids per SHREDDER TENDER PEAT recommendations. Pt has not yet had a [...] of COVID isolation as well as ofyeerday, SHREDDER TENDER PEAT completed assessment this morning with minced and [...] discussed with pt current diet order per SHREDDER TENDER PEAT recommendations and need for softer foods due [...] not yet had a solid meal but SHREDDER TENDER PEAT cleared for minced and moist today, pt [...] Weight: 418 lb (189.6 kg) (05/31/20 per [facility]) John Day Body Weight: 125 lbs; % John Day Body Weight 327.5 % BMI: 68.1 Adjusted [...] upright and utilizing small bites and sips. SHREDDER TENDER PEAT will initiate a dysphagia plan of care and continue to follow. Treatment Plan Requires SHREDDER TENDER PEAT Intervention: Yes Duration/Frequency of Treatment: 3x/week for [...] Call light within reach;Nurse notified Therapy Time SHREDDER TENDER PEAT Individual Minutes Time In: 904 Time Out: 924 Minutes: 20 SHREDDER TENDER PEAT Total Treatment Time Total Treatment Time: 20 A surgical mask and gloves were worn throughout this session. Carley Cortes MS, CCC/SHREDDER TENDER PEAT 06/19/2021 10:14 AM * Elijah Allred MD [...] Conjunctiva []Injected []Non-Injected Pinnae []Normal []Other Dentitian []Andreafski Teeth []Dentures Oral Mucosa []Pennock []Moist []Dry Oral ETT [x]Present []Absent Neck: [...] []Absent STEELE ([]RUE []RLE []LUE []LLE) Neurologic: [place] []Yes []No Corneal reflexes []Present []Absent Plantar [...] 06/18/21 0619 06/19/21 0246 PHART 7.503* 7.517* [id number] 41.5 41.3 PO2ART 73.2* 53.7* OYA2HZN 31.9* 32.7* R4ACSHJC 93.9* 87.9* FIO2A 50% 30% Lactic Acid: [...] No organomegaly, no cyanosis. No clubbing. No [place]. Continue lasix. Taper off precedex. Remove lines. Abx per ID recs. * Eladia Scanlon MD - 06/18/2021 11:10 PM EDT Images from the original note were not included. [facility] - Infectious Diseases Attending [...] to preserve PPE for other caregivers, a reyu-bo-asxl encounter with the patient was not performed. [...] hypoxic respiratory failure - dx 06/02 in [facility] - sx onset 1 week prior [...] Care Encounter - full code - sisterMaggie ([phone]), who is RN, is primary point of [...] on piece of paper, wrote the word copy chief and seemed very fearful. Reassured the patient [...] at home until she was admitted to [facility] in [place]. She recevied treatment there, as noted by [...] unable to assess orientation due to intubated Silt Symptom Assessment Score Silt Score Pain Score 0 Tiredness Score 5 [...] Harding RCP - 06/18/2021 11:45 AM EDT [facility] Respiratory Care Department Progress Note Spontaneous Breathing [...] Conjunctiva []Injected []Non-Injected Pinnae []Normal []Other Dentitian []Andreafski Teeth []Dentures Oral Mucosa []Pennock []Moist []Dry Oral ETT [x]Present []Absent Neck: [...] []Absent STEELE ([]RUE []RLE []LUE []LLE) Neurologic: [place] []Yes []No Corneal reflexes []Present []Absent Plantar [...] Labs 06/15/21 23206/18/21 0619 PHART 7.489* 7.503* [id number] 42.5 41.5 PO2ART 84.9 73.2* NZZ5MIX 31.6* 31.9* R2KLKZZG 95.6 93.9* FIO2A No data 50% Lactic [...] Zelalem Score: Zelalem Scale Score: 13 (06/17/21 7438) Wound Care and Prevention: NA - patient [...] from the original note were not included. [facility] - Infectious Diseases Attending Progress Note Subjective: [...] to preserve PPE for other caregivers, a ydjg-wv-igds encounter with the patient was not performed. [...] hypoxic respiratory failure - dx 06/02 in [facility] - sx onset 1 week prior [...] Conjunctiva []Injected []Non-Injected Pinnae []Normal []Other Dentitian []Andreafski Teeth []Dentures Oral Mucosa []Pennock []Moist []Dry Oral ETT [x]Present []Absent Neck: [...] []Absent STEELE ([]RUE []RLE []LUE []LLE) Neurologic: [place] []Yes []No Corneal reflexes []Present []Absent Plantar [...] 0101 06/15/21 2321 PHART 7.501* 7.518* 7.489* DET6IBR 41.9 41.8 42.5 PO2ART 83.7 68.3* 84.9 ACF5BJC 32.0* 33.2* 31.6* P8IDGFZJ 95.6 92.8* 95.6 FIO2A No data No [...] from the original note were not included. [facility] - Infectious Diseases Attending Progress Note Subjective: [...] to preserve PPE for other caregivers, a irhb-yc-gnbr encounter with the patient was not performed. [...] hypoxic respiratory failure - dx 06/02 in [facility] - sx onset 1 week prior [...] Conjunctiva []Injected []Non-Injected Pinnae []Normal []Other Dentitian []Andreafski Teeth []Dentures Oral Mucosa []Pennock []Moist []Dry Oral ETT [x]Present []Absent Neck: [...] []Absent STEELE ([]RUE []RLE []LUE []LLE) Neurologic: [place] []Yes []No Corneal reflexes []Present []Absent Plantar [...] 0101 06/15/21 2321 PHART 7.501* 7.518* 7.489* YXY4OQT 41.9 41.8 42.5 PO2ART 83.7 68.3* 84.9 FQY2ZVS 32.0* 33.2* 31.6* B6UNXGIK 95.6 92.8* 95.6 FIO2A No data No [...] See [x]progress note []H&P []Consult documented by [x]private household worker []IDALIA which reflects my hpi, pmh, psh, ros, fh, sh as well with my additions, as I discussed with the [x]private household worker []IDALIA. For my exam, assessment and plan [...] []Injected []Non-Injected / Pinnae []Normal []Other/ Dentitian []Andreafski Teeth []No Andreafski Teeth []Dentures Oral Mucosa []Pennock []Moist []Dry/ Oral ETT []Present []Absent Neck: [...] [x]Absent/ STEELE ([x]RUE [x]RLE [x]LUE [x]LLE) Neurologic: [place] []Yes [x]No Corneal reflexes []Present []Absent / [...] Conjunctiva []Injected []Non-Injected Pinnae []Normal []Other Dentitian []Andreafski Teeth []Dentures Oral Mucosa []Pennock []Moist []Dry Oral ETT [x]Present []Absent Neck: [...] []Absent STEELE ([]RUE []RLE []LUE []LLE) Neurologic: [place] []Yes []No Corneal reflexes []Present []Absent Plantar [...] 0038 06/15/21 010 PHART 7.480* 7.501* 7.518* MFE4RAC 43.4 41.9 41.8 PO2ART 63.5* 83.7 68.3* FTN3QAZ 31.6* 32.0* 33.2* U2IMEDGP 92.1* 95.6 92.8* FIO2A No data No [...] See [x]progress note []H&P []Consult documented by [x]private household worker []IDALIA which reflects my hpi, pmh, psh, ros, fh, sh as well with my additions, as I discussed with the [x]private household worker []IDALIA. For my exam, assessment and plan [...] []Injected []Non-Injected / Pinnae [x]Normal []Other/ Dentitian [x]Andreafski Teeth []No Andreafski Teeth []Dentures Oral Mucosa [x]Pennock []Moist []Dry/ Oral ETT [x]Present []Absent Neck: [...] [x]Absent/ STEELE ([x]RUE [x]RLE [x]LUE [x]LLE) Neurologic: [place] []Yes []No Corneal reflexes []Present []Absent / [...] Bellamy RCP - 06/14/2021 10:02 AM EDT [facility] Respiratory Care Department Progress Note Spontaneous Breathing [...] from the original note were not included. [facility] - Infectious Diseases Attending [...] Mental Status: She is alert. 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 2. Will continue to monitor tolerance [...] Anthropometric Measures: Height: 5 [facility] Work Phone: 1(504) 689-351008-04-2021 Hospital Discharge instructions* Discharge Instr - Diet* [...] Agent's Name Healthcare Agent's Phone Number 06/03/21 4214 No, patient does not have an advance directive for healthcare treatment Admitting Physician: Ruth Soni DO PCP: No primary care provider on file. Discharging Nurse: audrey Discharging Hospital Unit/Room#: [id number]/[id number] Discharging Unit Emergency Contact: Extended Emergency Contact [...] Pressure injury of right buttock, stage 3 ([facility]) L89.313 MIRIAM (acute kidney injury) ([facility]) N17.9 Hyponatremia E87.1 Poor intravenous access Z78.9 Obstructive sleep apnea syndrome G47.33 Neoplasm of uncertain behavior of skin D48.5 Morbid obesity ([facility]) E66.01 Iron deficiency anemia due to chronic blood loss D50.0 Body mass index (BMI) of 70 or greater in adult ([facility]) Z68.45 Ventilator associated pneumonia ([facility]) J95.851 Evin albicans infection B37.9 MRSA pneumonia ([facility]) J15.212 MSSA (methicillin susceptible Staphylococcus aureus) pneumonia ([facility]) J15.211 Isolation/Infection: Isolation No Isolation Patient Infection [...] RN Added from external infection. - 05/27/21 [facility] ([facility]) per ODRS/pw May discontinue isolation [...] Assisted Dressing Assisted Toileting Dependent Feeding Independent Computer Teacher Independent Med Delivery whole Wound Care Documentation [...] Healing % 100 06/22/21 1000 Wound Assessment Pennock/red 06/28/21 0845 Drainage Amount None 06/28/21 0845 [...] % (l*w) 0 06/20/21 2120 Wound Assessment Pennock/red 06/25/21 1130 Drainage Amount None 06/28/21 0845 [...] Readmission: 32 Discharging to Facility/ Agency Name: [facility] Address:[address] [place], [place] [id number] Dialysis Facility (if applicable) Name: Address: Dialysis Schedule: Phone: Fax: Director Of Purchasing/Platform Power Technician signature: ICIAN SECTION Prognosis: Fair Condition at [...] in H&P PHYSICIAN SIGNATURE: [facility] this [facility] Work Phone: [phone]) 723-356107-05-2021 Miscellaneous Notes* Plan of Care - Nikia [...] 06/03/2021 12:05 PM EDT Patient discharged to [facility] via [facility]. Report given to Ja SUBRAMANIAN at [facility]. Patient belongings sent with her. Patient [...] Follows commands and Jessica. Sinus rhythm per online marketing manager. Will continue to monitor. Please see flow sheets for details. documented in this [facility]07-05-2021 Hospital Discharge instructions* Discharge Instr - Activity* Flash De La Rosa PA-C - 06/03/2021 8:48 AM EDT aat * Discharge Instr - Diet* Flash De La Rosa PA-C - 06/03/2021 8:48 AM EDT aat documented in this [facility]07-05-2021 Hospital course Narrative* Flash De La Rosa PA-C - 06/03/2021 8:43 AM EDT Discharge Summary Summary Time: 06/03/21 8:49 AM Name: Jesusita England Age: 51 y.o. Birthday: 1970 Admit Date: 06/02/2021 10:38 AM Discharge Date: 06/03/2021 Brief Summary of Hospital Course: Patient is a 51 y.o. female presents to [facility] for evaluation of SOB. 51-year-old female [...] for the patient to be transferred to [place] in the emergency department. Transportation has now been arranged. Today the patient will be transferred per her request to [facility]. Consultants: N/A Discharge Diagnosis: Active Problems: [...] diet as tolerated. Discharge Follow-up: Transfer to [place] Discharge Disposition: Patient will be discharged in stable condition. Discharge Time: Including assessment, planning, and medication reconciliation was greater than 35 min. Flash De La Rosa PA-C completing Discharge Summary for Dr. Naranjo Please note portions of this note utilized GateMeation software, please excuse any typographical or grammatical [...] and plan. DOS: Patient requested transfer to [facility] in [place]. She is SOB. Some cough. ROS: Ten systems reviewed, unless limited by patient' or care providers' inability or unavailability. Reported above or following. Assessment and additional plans: Hypoxic respiratory failure Severe Covid 19 with bilateral PNA/ARDS Obesity and MIGUEL Plan: BiPAP; O2; steroids; DVT prophylaxis; transfer to tertiary care hospital. Contact me if you need any clarification. Salomon Ballesteros MD [facility] History and physical note* Flash De La Rosa PA-C - 06/02/2021 5:02 PM EDT History and Physical Examination 06/02/21 5:03 PM Chief Complaint: Shortness of Breath History of Present Illness: Patient is a 51 y.o. female presents to [facility] for evaluation of SOB. 51-year-old female [...] Please note Portions of this note utilized GateMeation software, please excuse any typographical or grammatical errors [facility] Associated attestation - Guilherme Naranjo [...] and plan of care. documented in this [facility]07-04-2021 Procedure note* Al Stack APRN-CNP - 06/02/2021 4:50 PM EDT Associated Order(s): PROCEDURE - CENTRAL LINE WITH OR WITHOUT PAC INDICATION: Vascular Access / Critically Ill / Limited access PROCEDURE IRON WORKER: Nathen Stack APRN-SENIOR ACCOUNTANT CPA ATTENDING PHYSICIAN: In Attendance (N) CONSENT: Consent [...] is less than 10ml. documented in this [facility]07-04-2021 Emergency department Note* Nora Dominguez RN - 06/02/2021 3:47 PM EDT Sister Maggie Sanders called at [phone] and updated that the pt has been transferred to the ICU room 3991. * Mary Anne Soto PCA - 06/02/2021 3:00 PM EDT Patient assigned to room #3785. * Mary Anne Soto PCA - 06/02/2021 2:04 PM EDT Called [facility] at this time, spoke with Maxim to advise that patient will be admitted toour facility for the time being because we are unable to arrange transport for her. * Mary Anne Soto PCA - 06/02/2021 1:[address] Naranjo called back at this time. * Mary Anne Soto PCA - 06/02/2021 1:44 PM EDT Kirsten with the [facility] transfer center called back at this time, patient assigned to room #T3, ICU, room 303. * Mary Anne Soto PCA - 06/02/2021 1:38 PM EDT [facility] called back at this time, Dr. Soni accepted for patient to go to ICU, waiting on a room assignment. * Mary Anne Soto SOLE CEMENTER - 06/02/2021 1:13 PM EDT Called [facility] at this time, advised that patient is getting placed on Bi pap, they will call back with an ICU room assignment. * Kellen Yang RN - 06/02/2021 1:02 PM EDT C/O SOB. Dr. Krystle beal. Saturation 84%. RT called. * Becky SotoDARIN dawn - 06/02/2021 12:58 PM EDT Called [facility] at this time to see if they [...] Soto PCA - 06/02/2021 12:20 PM EDT [facility] called back at this time. * Nawaf Dalton MD - 06/02/2021 10:49 AM EDT Emergency Department Report [facility] EMERGENCY DEPARTMENT Service Date:.06/02/21 PCP: Alondra Crews [...] a fever. She has been taking some uffe-pml-oezqtjlgbdjr and cold medications. She states she has [...] Social Gatherings with Friends and Family: Attends [employer]: Active Member of Clubs or Organizations: [...] Use Authorization (EUA) for the qualitative detection [id number] nucleic acid. CBC, EDIF, PLATELET Result Value [...] a sinus rhythm rate of 79 bpm. MN interval 150 ms. No STEMI. QRS duration [...] his CRP. Patient is requesting transfer to [facility]. I did speak to the [facility] insurance agency manager they have accepted the patient. Patient has [...] patient's size. I placed acall into the safety and health consultant. I spoke with this patient. She will agree to stay at a [facility]. They willattempt to schedule a transport in the morning to [facility]. Nawaf Dalton MD 06/02/21 1410 * Nora Dominguez RN - 06/02/2021 10:39 AM EDT Bed: E004 Expected date: Expected time: Means of arrival: Comments: EMS documented in this [facility]07-04[facility] History of Present illness Narrative* Tori Jimenes RCP - 06/02/2021 1:25 PM EDT Patient placed on BIPAP by this AUTOMOTIVE BRAKE SPECIALIST. 14/8 100%. Patient tolerating well, sats increasing to 94%. [facility] Rubin Hadley [facility] April 08, 2024 2:34pm Note Date/Time April 08, 2024 2:30p m [facility] Medical Records Department [address] [place] [address] Discharge Summary 04/08/24 1427 MR#: [id number] Acct: [id number] Name: JESUSITA ENGLAND Rep #:[id number] 1 : 1970 54 From: Rubin frost MD PCP: VJ Maloney Status:ADM IN Location: [place] [id number] Providers Date of Admission: 04/04/24 Primary Care [...] consult with Dr. Garcia who presents to [facility] ER complaining of bilateral lower extremity [...] the general medical floor for ongoing care [facility] that is expected to be greater than [...] recurrent issues. They brought her down to [facility] and recommended discharge on cefdinir 300 [...] Self Care Charges/Coding Visit Charges Inpatient E&M: 32252 Disch Hosp >30min 04/08/24 1434 <Electronically signed by Rubin Hadley MD> Cosigner Signature (if applicable): CC: Dr. Rubin Hadley MD; VJ Maloney~ Signed [facility] Work Phone: Evaluation note* Diagnosis Exertional shortness of breath Shortness of breath [facility] Diagnosis Pneumonia due to 2019 [...] Thrombocytopenia Thrombocytopenia, unspecified [facility] Diagnosis Pneumonia due to COVID-19 virus- Primary Pressure injury of right buttock, stage 3 ([facility]) Palliative care encounter Encounter for palliative care COVID-19 Anxiety Anxiety state, unspecified Insomnia Insomnia, unspecified Constipation Unspecified constipation Gastroesophageal reflux disease without esophagitis Esophageal reflux Angular cheilitis 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 (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) use of antibiotics MIRIAM (acute kidney [...] aureus MSSA (methicillin susceptible Staphylococcus aureus) pneumonia ([facility]) Methicillin susceptible pneumonia due to Staphylococcus aureus documented in this encounter [facility] Work Phone: Evaluation note* Diagnosis Muscle swelling Swelling of limb Nodule of soft tissue Localized superficial swelling, mass, or lump [facility] Diagnosis Onset Date Resolution Status Hypoxemia requiring supplemental oxygen acute Lymphedema associated with obesity acute MIGUEL (obstructive sleep apnea) chronic [facility] Work Phone: Evaluation noteNo assessment information available [facility] Work Phone: Evaluation note* Diagnosis Onset Date Resolution Status Cellulitis acute Failure of outpatient treatment acute Hyperglycemia acute Obesity acute [facility] Work Phone: Evaluation note* Diagnosis Onset Date Resolution Status Cellulitis acute Failure of outpatient treatment acute Hyperglycemia acute Lymphedema associated with obesity acute Obesity acute [facility] Work Phone: evaluation note* Diagnosis Onset Date Resolution Status Cellulitis acute Lymphedema associated with obesity acute Cellulitis acute Lymphedema associated with obesity acute Sepsis acute [facility] Work Phone: Evaluation note* Diagnosis Morbid obesity (HCC)- Primary Morbid obesity Recurrent cellulitis of lower extremity Chronic acquired lymphedema Other noninfectious lymphedema [facility] Diagnosis Onset Date Resolution Status Cellulitis acute Headache acute Lymphedema associated with obesity acute PLMD (periodic limb movement disorder) acute Super obesity acute [facility] Work Phone: evaluation note* Diagnosis Positive LIZ (antinuclear antibody)- Primary Other and unspecified nonspecific immunological findings Arthralgia, unspecified joint CRP elevated Elevated C-reactive protein (CRP) Lymphedema Other noninfectious lymphedema Recurrent cellulitis [facility] [place] [facility] August 18, 2023 12:50am Note Date/Time August 18, 2023 12:46am [facility] Medical Records Department [address] [place] [address] History & Physical Exam 08/18/235 MR#: [id number] Acct: [id number] Name: JESUSITA ENGLAND Rep #:[id number] : 1970 53 From: [place] Thompson [...] admitted for further IV antibiotics and fluid. 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 For lunch she [...] (Auto) 90.9 H, Lymph % (Auto) 3.2L, [place] % (Auto) 5.0, Eos % (Auto) 0.0, [...] 23:46 EDT Reading Location ID and State: [facility] / [place] Tel , Service support , Assessment & [...] weight heparin Charges/Coding Visit Charges Inpatient E&M: 93862 Init Hosp L2 08/18/23 0050 <Electronically signed by [place] Thompson MD> Cosigner Signature (if applicable): CC: Dr. [place] Thompson MD; VJ Maloney~ Signed [facility] Work Phone: History of Present illness [...] Initial labs are noted as in progress. [facility] DO Work Phone: reason for visit Narrative* Evaluate and Treat (Routine) - Pending Review Specialty Diagnoses / Procedures Referred By Contac t Referred To Contact Rheumatology Diagnoses Arthralgia, unspecified joint Positive LIZ (antinuclear antibody) CRP elevated Provider, Generic Yamile Alva DO [address] [place] [address] Phone: tel: fax: Referral ID Status Reason Start Date Expiration Date V isits Requested Visits Authorized [id number] Pending Review 06/29/2024 06/29/2025 1 1 [facility] Summary Purpose Family History Relationship [...] No July 04, 2021 4:22pm Power of Buyer No July 04 4:22pm Advance Directive Response Recorded Date/ Time Living Will No July 08, 2023 8:16am Power of Buyer No July 08 8:16am Advance Directive Response Recorded Date/ Time Name of Medical Power of Buyer ABHISHEK SANDERS July 24, 2023 11:19pm Living Will No July 24 11:19pm Power of Buyer Yes July 24, 023 11:19pm Advance Directive Response Recorded Date/ Time Name of Medical Power of Buyer sister July 25, 2023 3:01am Living Will Yes July 25 3:01am Power of Buyer Yes July 25, 023 3:01am Advance Directive Response Recorded Date/ Time Name of Medical Power of Buyer sister July 25, 2023 3:01am Living Will No August 17, 2023 10:41pm Power of Buyer No July 10:41pm Advance Directive Response Recorded Date/ Time Name of Medical Power of Buyer sister July 25, 2023 3:01am Name of Medical Power of Buyer maggie kunz August 18, 2023 1:42am Living Will Yes August 18, 2023 1:42am Power of Buyer Yes July 1:42am Living Will - [...] April 04, 2024 9: 15pm Power of Buyer Yes April 04, 2024 9:15pm Name of Medical Power of Buyer sister April 04, 2024 9:15pm Living [...] Date/ Time Name of Medical Power of Buyer maggie kunz April 04, 2024 11:38pm Living Will Yes April 04, 2024 11 :38pm Power of Buyer Yes April 04, 2024 11:38pm Living [...] sent through Care Everywhere. * Flank Pain (Bengali) * Back: Strain (Bengali) documented in this encounter Assessments Diagnosis Flank pain Abdominal pain, unspecified site Reason for Referral Status Reason Specialty Diagnoses / Procedures Referred By Contact Referred To Contact Closed Cardiovascular Medicine Diagnoses Exertional shortness of breath Procedures ECHOCARDIOGRAM MN ECHO HEART XTHORACIC,COMPLETE W DOPPLER Alondra Crews, RAYNE [address] [facility] [place] [address] Prabhakar Ont Echocardiograph y [address] [place] [address] Status Reason Specialty Diagnoses / Procedures Re ferred By Contact Referred To Contact New Request Procedures INPATIENT ADMISSION NOTIFICATION Guilherme Naranjo, DO [address] [place] [address] Status Reason Specialty Diagnoses / Procedures Referred By Contact Referred To Contact New Request Procedures ECG Nawaf Dalton MD [address] [place] [address] Status Reason Specialty Diagnoses / Procedures Referred By Contact Referred To Contact Open Specialty Services Required IP Unit Diagnoses Pressure injury of right buttock, stage 3 (HCC) Ach 5n Overflow [address] [place] [address] [facility] Ost[facility] Hyperbrc [address] [place] [address] Scheduling Instructions [facility] [address] [place] [address] Specialty Diagnoses / Procedures Referred By Contac t Referred To Contact Ultrasound Diagnoses Muscle swelling Nodule of soft tissue Procedures US SOFT TISSUE Alondra Crews PA-C [address] [facility] [place] [address] Prabhakar [facility] Ultrasound [address] [place] [address] Referral ID Status Reason Start Date Expiration Date Visits Re quested Visits Authorized [id number] Closed 02/21/2022 03/18/2023 1 1 Chief Complaint [...] section and content) DATE CREATED AUTHOR 05/20/2018 [facility] DATE CREATED AUTHOR AUTHOR'S ORGANIZ ATION 05/19/2021 [facility] DATE CREATED AUTHOR AUTHOR'S ORGANIZ ATION 08/12/2021 [facility] DATE CREATED AUTHOR AUTHOR'S ORGANIZ ATION 03/01/2022 [facility] DATE CREATED AUTHOR AUTHOR'S ORGANIZ ATION 02/04/2023 [employer] DATE CREATED AUTHOR AUTHOR'S ORGANIZ ATION 09/08/[address] [facility] [employer] [facility] DATE CREATED AUTHOR AUTHOR'S ORGANIZ ATION 10/11/2023 [facility] DATE CREATED AUTHOR AUTHOR'S ORGANIZ ATION 07/26/2024 [facility] DATE CREATED AUTHOR AUTHOR'S ORGANIZ ATION 11/16/2024 [facility] DATE CREATED AUTHOR AUTHOR'S ORGANIZ ATION [facility] Reason for Visit (unrecogniz ed section and content) Reason Comments Abdominal Pain x4 days left lower q uadrant, gallbadder removed, no pain medication helping, last BM today, pt passing gas Status Reason Specialty Diagnoses / Procedures Referred By Contact Referred To Contact Closed Cardiovascular Medicine Diagnoses Exertional shortness of breath Procedures ECHOCARDIOGRAM MN ECHO HEART XTHORACIC,COMPLETE W DOPPLER Alondra Crews PA-C [address] [place] [address] Prabhakar Ont Echocardiograph y [address] [place] [address] Reason Comments COVID-19 per EMS, pt c/o covi d symptoms, cough and SOB. pt spouse (+) COVID Status Reason Specialty Diagnoses / Procedures Referre d By Contact Referred To Contact Reason Comments Specialty Diagnoses / Procedures Referred By Contac t Referred To Contact Ultrasound Diagnoses Muscle swelling Nodule of soft tissue Procedures US SOFT TISSUE Alondra Crews PA-C [address] [facility] [place] [address] Prabhakar Ont Ultrasound [address] [place] [address] Referral ID Status Reason Start Date Expiration Date Visits Re quested Visits Authorized [id number] Closed 02/21/2022 03/18/2023 1 1 Reason Comments Follow-up Recurrent cellulitis (est pt, new to Dr. Tavera) Specialty Diagnoses / Procedures Referred By Contruben t Referred To Contact Infectious Diseases Diagnoses Recurrent cellulitis; pt was started on amox daily for suppression Procedures MN OFFICE/OUTPATIENT NEW MODERATE MDM 45-59 MINUTES Alondra Crews PA-C [address] [place] [address] [facility] [address] [place] [address] Referral ID Status Reason Start Date Expiration Date Visits Re quested Visits Authorized [id number] Closed 08/28/2023 08/28/2024 1 1 Scheduled Active [...] over 30 Minutes, ONCE, 1 dose, On [place] 06/02/21 at 1700, After infusion complete, flush tubing with 30mL NS at same rate as infusion. 1740 ($$New Bag$$ - Provider: Nikia Vines RN) sodium chloride 0.9% IV solution 75 mL (COMPLETED) 75 mL, Intravenous, ONCE, 1 dose, On [place] 06/02/21 at 1230, Radiology Procedure 1218 ($$New [...] DO Admit Provider, Attending Provide r Active [employer] Reverse Winder Relationship Specialty Start Date End Date CrewsAlondra PA-C [address] [facility] [place] [address] PCP - General Physician Pick Up Man 04/05/21 Team Status: Inactive Member Role Status [...] Dr. Wander Garcia MD Other Provider Active [employer] Winder Relationship Specialty Start Date End Date MarsAlondra PA-C [address] [place] [address] [place] [address] PCP - General Physician Pick Up Man 09/04/23 Team Status: Active Member Role Status [...] Hadley MD Attending Provider Active Dr. Wander aGrcia MD Other Provider Active [employer] Winder Relationship Specialty Start Date End Date Alondra Crews PA-C [address] [place] [address] PCP - General Physician Pick Up Man 11/11/24 Goals (unrecognized section and content) Goals [...] BE BASED ON THE PRIMARY CLINICAL RECORDS. [employer] provides no warranty or guarantee of the accuracy or completeness of information in this document.
--- NOTE | 2025-06-11 04:53 | ED.RN ---
0350 found pt hyperventilating,lips blue and arms mottled, encouraged pt to slow breathing down and 2l nc applied. Dr Dawkins requested that she come see the pt. Md at the bedside. Orders recieved.
[2025-06-11] MEDS: 0.9% Saline Lock 10 ML Syringe IV (06:04)
[2025-06-11] MEDS: Piperacil/Tazobactam 3.375 GM in 0.9% Normal Saline (50mL MB+) 50 ML IV ×3 (06:04→21:24)
[2025-06-11] MEDS: Lactated Ringers 1,000 ML 250 ML IV (06:05)
--- NOTE | 2025-06-11 06:36 | PCM.RX.CS ---
Consult Antibiotic Management Pharmacy has been consulted to manage selected antibiotic: Vancomycin Type of Intervention Type of Consult: New start Suspected Infection Suspected Infection: Skin/Soft tissue Labs Labs: Sodium 134 mmol/L (133-145) 06/11/25 00:05 Potassium 4.6 mmol/L (3.3-5.1) 06/11/25 00:05 Chloride 96 mmol/L (98-108) L 06/11/25 00:05 Carbon Dioxide 26.1 mmol/L (21.0-32.0) 06/11/25 00:05 Anion Gap 12 (5-15) 06/11/25 00:05 BUN 19 mg/dL (4-19) 06/11/25 00:05 Creatinine 0.93 mg/dL (0.70-1.20) 06/11/25 00:05 Est GFR (MDRD) Non-Af 71 (>60) 06/11/25 00:05 BUN/Creatinine Ratio 20.2 RATIO (10-20) H 06/11/25 00:05 Glucose 130 mg/dL (70-99) H 06/11/25 00:05 Microbiology Microbiology: Microbiology 06/11/25 00:18 Mucosa - Nose SARS-CoV-2, Influenza & RSV (PCR) - Final Pharmacy Plan for Drug Dosing Pharmacy Plan for Drug Dosing: NEW START IV VANCOMYCIN Consulting Physician: Camilla Indication: cellulitis Goal Trough: 15-20 SrCr: 0.93 mg/dL CrCl: 136 mL/min Comments: loading dose of 2000mg given in ER 06/11 @ 0117 Vancomycin Dose: Will start 1500mg Q8 (@ 0900)and get a trough prior to 4th total dose per policy. Pending Level: 06/12/25 @ 0030 Pharmacy Service will continue to monitor and adjust dosing as required.
[2025-06-11 06:42] LABS: Hematocrit 36.1 % (37-47); Hemoglobin 12.0 g/dL (12.0-15.0); Mean Corp Hgb Conc 33.2 g/dL (32-36); Mean Corpuscular Volume 82.0 fL (81-99); Mean Platelet Vol. 9.2 fl (6.2-12.0); Platelet Count 150 K/mm3 (150-450); RBC Distribution Width CV 15.1 % (11.6-14.6); RBC Distribution Width SD 45.6 fl (35.1-43.9); Red Blood Count 4.40 M/mm3 (4.2-5.4); White Blood Count 13.1 K/mm3 (4.4-11.0)
[2025-06-11 07:07] LABS: Anion Gap 11 (5-15); BUN 16 mg/dL (4-19); BUN/Creat Ratio 17.5 RATIO (10-20); Calcium,Total 8.5 mg/dL (7.6-11.0); Carbon Dioxide 22.4 mmol/L (21.0-32.0); Chloride 101 mmol/L (98-108); Estimated Creatinine Clearance 131.71 ml/min (50-250); Glucose 115 mg/dL (70-99); Potassium 3.6 mmol/L (3.3-5.1)
--- NOTE | 2025-06-11 07:39 | PCM.PN.HOSP ---
Reason for Visit Reason for Visit: Diagnoses Cellulitis of unspecified part of limb (06/11/25) Subjective Subjective Had been very anxious earlier per nursing. Currently on CPAP. States that her legs are more swollen. Objective Data Objective Data Vital Signs: Vital Signs Temp Pulse Resp BP Pulse Ox O2 Del Method O2 Flow Rate 37.9 C H 104 H 30 H 104/53 L 96 Nasal Cannula 2 06/11/25 05:20 06/11/25 05:20 06/11/25 05:20 06/11/25 05:20 06/11/25 05:20 06/11/25 05:30 06/11/25 05:30 Oxygen Flow Rate (L/min) 2 Oxygen Delivery Method Nasal Cannula Weight: 227.2 kg Body Mass Index (BMI) 88.7 Intake & Output: Intake and Output for Last 24 Hours 06/09/25 06/10/25 06/11/25 23:59 23:59 23:59 Intake Total 2640 / 2640 Output Total 1000 / 1000 Balance 1640 / 1640 Lab / Micro Data 06/11/25 06:20 06/11/25 06:20 Labs: Laboratory Results - last 24 hr 06/11/25 00:05: WBC 16.1 H, RBC 4.60, Hgb 12.6, Hct 39.1, MCV 85.0, MCH 27.4, MCHC 32.2, RDW Std Deviation 45.9 H, RDW Coeff of Rani 15.0 H, Plt Count 163, MPV 9.5, Immature Gran % (Auto) 1.300 H, Neut % (Auto) 90.9 H, Lymph % (Auto) 2.0 L, [place] % (Auto) 5.7, Eos % (Auto) 0.0, Baso % (Auto) 0.1, Absolute Neuts (auto) 14.6 H, Absolute Lymphs (auto) 0.32 L, Nucleated RBC % 0, PT 13.6, INR 1.0, APTT 29.1, Sodium 134, Potassium 4.6, Chloride 96 L, Carbon Dioxide 26.1, Anion Gap 12, BUN 19, Creatinine 0.93, Estim Creat Clear Calc 136.23, Est GFR (MDRD) Non-Af 71, BUN/Creatinine Ratio 20.2 H, Glucose 130 H, Hemoglobin A1c 6.2 H, Lactic Acid 2.4 H*, Calcium 9.4, Total Bilirubin 0.52, AST 30, ALT 24, Alkaline Phosphatase 88, Troponin T High Sens 12, NT pro BNP II 284, Total Protein 7.3, Albumin 4.0, Globulin 3.3, Albumin/Globulin Ratio 1.2 06/11/25 00:30: Urine Color Straw, Urine Clarity Clear, Urine pH 7.0, Ur Specific [place] 1.010, Urine Protein Negative, Urine Glucose (UA) Normal, Urine Ketones Negative, Urine Occult Blood 10 H, Urine Nitrite Negative, Urine Bilirubin Negative, Urine Urobilinogen Normal, Ur Leukocyte Esterase Negative, Urine RBC 5-10 SEEN, Urine WBC 0 SEEN, Ur Squamous Epith Cells 5-10 SEEN, Urine Bacteria 0 SEEN, Urine Mucus 0 SEEN 06/11/25 02:13: Troponin T Hi Sens 2 Hr 14 06/11/25 04:05: Lactic Acid 2.2 H* 06/11/25 06:20: WBC 13.1 H, RBC 4.40, Hgb 12.0, Hct 36.1 L, MCV 82.0, MCH 27.3, MCHC 33.2, RDW Std Deviation 45.6 H, RDW Coeff of Rani 15.1 H, Plt Count 150, MPV 9.2, Sodium 135, Potassium 3.6, Chloride 101, Carbon Dioxide 22.4, Anion Gap 11, BUN 16, Creatinine 0.91, Estim Creat Clear Calc 131.71, Est GFR (MDRD) Non-Af 73, BUN/Creatinine Ratio 17.5, Glucose 115 H, Calcium 8.5 Micro: Microbiology 06/11/25 00:18 Mucosa - Nose SARS-CoV-2, Influenza & RSV (PCR) - Final ABG Data ABG results: ABG 06/11/25 04:17 Specimen Type FRANKLYN Sample Site Not entered O2 % 2.0 VBG pH 7.41 VBG pO2 39 VBG HCO3 26 VBG Total CO2 28 VBG O2 Sat (Calc) 74 H VBG Base Excess 2 POC Mix VBG pCO2 Pt Tmp 41.7 O2 Delivery Device Cannula Radiography Diagnostic Testing: Radiology Impression Chest X-Ray 06/10/25 23:59 IMPRESSION: As above. Reading Location: [place] [address] Physical Exam Const alert and no apparent distress Constitutional Narrative: on BiPAP. HEENT head/scalp atraumatic and moist oral mucous membranes Resp normal respiratory effort, no retractions, no use of accessory muscles and clear to auscultation bilaterally Cardio regular rate, regular rhythm, S1 normal heart sound and S2 normal heart sound GI normal to inspection, nondistended, normoactive bowel sounds, soft to palpation and non-tender Extremity Extremity Narrative: Tight bilateral LE edema. Venous stasis changes. Neuro Sensorium / Orientation: awake Assessment & Plan Assessment/Plan (1) Anasarca: PLAN: Chest x-ray is limited due to body habitus cannot rule out pulmonary vascular congestion. Patient with marked edema her lower extremities. I see venous stasis changes to her lower extremities without seeing any overt cellulitis. Patient was having a fever, however. Though it is unclear if the fevers are related with cellulitis, which I doubt. Will continue with antibiotics and follow-up cultures. If cultures are negative then would discontinue antibiotics. I feel much of her leg issues are more related with venous stasis changes as they are warm but patient does have marked lower extremity edema. Patient has been started now on a furosemide drip. Monitor closely PLAN: Plan Chronic medical conditions: ? Class III obesity with MIGUEL and obesity hypoventilation syndrome: BMI 91 on admit. Complicates hospital course, care and prognosis. Weight loss recommended. Continue CPAP ? Hypertension: Will hold home lisinopril for now, restart as needed. ? GERD: Continue PPI. ? Anxiety/depression: Continue home BuSpar and venlafaxine. ? Asthma: Stable on room air at rest, not in acute exacerbation. Continue home short acting dilators as needed. ? Mild iron deficiency anemia: Hemoglobin 12.6 on admit, stable at baseline. Continue home iron supplement. ? History of stage III decubitus ulcer DVT prophylaxis: Lovenox twice daily Charges/Coding Visit Charges Inpatient E&M: 03201 Subs Hosp L2
[2025-06-11] MEDS: Vancomycin HCl 1,500 MG in 0.9% Normal Saline (500mL Bag) 500 ML 250 MG IV ×2 (09:28→17:06)
[2025-06-11] MEDS: Lactobacillis Acidophilus 1 CAP PO ×2 (09:35→21:24)
[2025-06-11] MEDS: Furosemide 500 MG in Empty Viaflex 50 mL 1 EACH CONT INF (11:54)
[2025-06-12 01:25] LABS: Vancomycin, Trough Level 24.4 ug/mL (5.0-15.0)
--- NOTE | 2025-06-12 01:50 | PCM.RX.CS ---
Consult Antibiotic Management Pharmacy has been consulted to manage selected antibiotic: Vancomycin Type of Intervention Type of Consult: Follow-up Suspected Infection Suspected Infection: Skin/Soft tissue Labs Labs: Sodium 135 mmol/L (133-145) 06/11/25 06:20 Potassium 3.6 mmol/L (3.3-5.1) 06/11/25 06:20 Chloride 101 mmol/L (98-108) 06/11/25 06:20 Carbon Dioxide 22.4 mmol/L (21.0-32.0) 06/11/25 06:20 Anion Gap 11 (5-15) 06/11/25 06:20 BUN 16 mg/dL (4-19) 06/11/25 06:20 Creatinine 0.91 mg/dL (0.70-1.20) 06/11/25 06:20 Est GFR (MDRD) Non-Af 73 (>60) 06/11/25 06:20 BUN/Creatinine Ratio 17.5 RATIO (10-20) 06/11/25 06:20 Glucose 115 mg/dL (70-99) H 06/11/25 06:20 Vancomycin Trough 24.4 ug/mL (5.0-15.0) H 06/12/25 00:45 Microbiology Microbiology: Microbiology 06/11/25 00:11 Blood Culture (Wb) - Venous Blood Culture - Preliminary 06/11/25 00:18 Mucosa - Nose SARS-CoV-2, Influenza & RSV (PCR) - Final Pharmacy Plan for Drug Dosing Pharmacy Plan for Drug Dosing: VANCOMYCIN LEVEL RECEIVED Current Vancomycin Dose: 1500MG Q8 Number of Doses Received: 3 Vancomycin Level: 24.4 MG/DL Hours Since Last Dose: 7.5 Renal Function: SCr 0.91 mg/dL, CrCl 131 mL/min Renal Function Trend: unchanged Lab/Micro: blood cx pending (prelim GNR), urine cx pending Vancomycin Plan/Comments: 7.5 hour trough was supratherapeutic at 24.4 mg/dL (goal 15-20). Will hold dosing for now and repeat a level in 12 hours. Pending Level: 06/12/25 @ 1300 Pharmacy Service will continue to monitor and adjust dosing as required.
[2025-06-12 03:18] VITALS: BP 114/63; PULSE 75; RESP 16; TEMP 36.9; O2SAT 95
[2025-06-12] MEDS: Piperacil/Tazobactam 3.375 GM in 0.9% Normal Saline (50mL MB+) 50 ML IV ×3 (05:39→23:01)
[2025-06-12] MEDS: BENZOCAINE/MENTHOL 1 LOZENGE MUCOUS MEM ×2 (06:18→15:41)
--- NOTE | 2025-06-12 08:03 | PCM.PN.HOSP ---
Reason for Visit Chief Complaint: Concern for recurrent lower extremity cellulitis Subjective Subjective Still has the redness on her legs. Objective Data Objective Data Vital Signs: Vital Signs Temp Pulse Resp BP Pulse Ox O2 Del Method O2 Flow Rate 36.9 C 75 16 114/63 95 CPAP 2 06/12/25 03:18 06/12/25 03:18 06/12/25 03:18 06/12/25 03:18 06/12/25 03:18 06/12/25 03:18 06/11/25 15:27 Oxygen Flow Rate (L/min) 2 Oxygen Delivery Method CPAP Weight: 227.3 kg Body Mass Index (BMI) 88.7 Intake & Output: Intake and Output for Last 24 Hours 06/10/25 06/11/25 06/12/25 23:59 23:59 23:59 Intake Total 5700 / 5700 50 / 50 Output Total 2700 / 4100 2200 / 2200 Balance 3000 / 1600 -2150 / -2150 Lab / Micro Data 06/11/25 06:20 06/12/25 08:51 Labs: Laboratory Results - last 24 hr 06/12/25 00:45: Vancomycin Trough 24.4 H Micro: Microbiology 06/11/25 00:11 Blood Culture (Wb) - Venous Blood Culture - Preliminary 06/11/25 00:18 Mucosa - Nose SARS-CoV-2, Influenza & RSV (PCR) - Final Physical Exam Const alert and no apparent distress Constitutional Narrative: On room air. No respiratory distress. No conversational dyspnea. HEENT head/scalp atraumatic Resp normal respiratory effort and no retractions Extremity Extremity Narrative: Marked edema in bilateral lower extremities with lymphedematous changes. Assessment & Plan Assessment/Plan (1) Anasarca: PLAN: Chest x-ray is limited due to body habitus cannot rule out pulmonary vascular congestion. Patient with marked edema her lower extremities. I see venous stasis changes to her lower extremities without seeing any overt cellulitis. Patient was having a fever, however. Though it is unclear if the fevers are related with cellulitis, which I doubt. Will continue with antibiotics and follow-up cultures. If cultures are negative then would discontinue antibiotics. I feel much of her leg issues are more related with venous stasis changes as they are warm but patient does have marked lower extremity edema. Patient has been started now on a furosemide drip. Monitor closely Patient with marked edema her lower extremities. Kidney function seems to be tolerating. So we will continue the furosemide drip for now. PLAN: Plan Chronic medical conditions: ? Class III obesity with MIGUEL and obesity hypoventilation syndrome: BMI 91 on admit. Complicates hospital course, care and prognosis. Weight loss recommended. Continue CPAP ? Hypertension: Will hold home lisinopril for now, restart as needed. ? GERD: Continue PPI. ? Anxiety/depression: Continue home BuSpar and venlafaxine. ? Asthma: Stable on room air at rest, not in acute exacerbation. Continue home short acting dilators as needed. ? Mild iron deficiency anemia: Hemoglobin 12.6 on admit, stable at baseline. Continue home iron supplement. ? History of stage III decubitus ulcer MIGUEL: On CPAP. DVT prophylaxis: Lovenox twice daily Charges/Coding Visit Charges Inpatient E&M: 32151 Subs Hosp L2
[2025-06-12 09:18] VITALS: BP 121/73; PULSE 68; RESP 16; TEMP 36.5; O2SAT 94
[2025-06-12] MEDS: Lactobacillis Acidophilus 1 CAP PO ×2 (09:20→23:01)
[2025-06-12 09:39] LABS: Anion Gap 10 (5-15); BUN 12 mg/dL (4-19); BUN/Creat Ratio 15.4 RATIO (10-20); Calcium,Total 8.5 mg/dL (7.6-11.0); Carbon Dioxide 23.8 mmol/L (21.0-32.0); Chloride 103 mmol/L (98-108); Estimated Creatinine Clearance 155.71 ml/min (50-250); Glucose 112 mg/dL (70-99); Potassium 4.0 mmol/L (3.3-5.1)
--- NOTE | 2025-06-12 11:30 | CASEMGMT ---
RN CM Face to Face with patient for initial transition planning/care coordination assessment. RN CM introduced self and role at [facility]. Patient lying in bed, alert and oriented. Patient willing to participate in assessment and is able to answer all questions appropriately. Care providers, pharmacy, and demographics verified. Strata: 1 PCP: [facility] Specialists: none Preferred Pharmacy: [facility] Insurance: Toyei, Toyei Secondary Prescription Benefit: yes Living Will/HPOA: none LNOK: Living Arrangements: Pernell lives with in a single story home with 2 steps to enter. Patient states she is independent at home but assists at times. Transportation: self, DME/HHC: Patient has shower chair, lift chair, grab bars, rollator, wheelchair, cpap, nebulizer, pulse ox, and lymphedema boots at home. Patient has had HHC in the past. Patient has been to [facility] in leon past. Patient wishes to discharge home, denies need for home health at this time. Patient states he has no further needs or concerns at this time. CM to follow for discharge planning needs that may arise. Disposition Plan: Patient to discharge home with family support and follow-up plans in place. Madelin DUONG, RN, CM
--- NOTE | 2025-06-12 12:15 | WOUNDNOTE ---
skin photo: right lower leg
--- NOTE | 2025-06-12 12:17 | WOUNDNOTE ---
Was asked to see patient for cellulitis to the right lower leg. patient is known to this nurse form previous admissions. there is some slight warm noted to the right medial thigh. no open areas noted in the skin folds of the legs. 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 patient states she works at least 40 hours a week. encouraged patient to try to elevate legs as much as possible. unable to really compress the legs d/t the shape. pt states she has tried compression wraps and they just roll down from the skin folds. see skin photo. will monitor but no need for wound care at this time.
[2025-06-12] MEDS: Vancomycin Trough/Random Due 1 LAB MC (13:03)
[2025-06-12 13:31] LABS: Vancomycin, Random Level 16.1 ug/mL (0.0-15.0)
[2025-06-12 13:40] VITALS: O2SAT 96
[2025-06-12] MEDS: 0.9% Saline Lock 10 ML Syringe IV ×2 (14:13→15:38)
--- NOTE | 2025-06-12 14:13 | PCM.RX.CS ---
Consult Antibiotic Management Pharmacy has been consulted to manage selected antibiotic: Vancomycin Type of Intervention Type of Consult: Follow-up Labs Labs: Sodium 137 mmol/L (133-145) 06/12/25 08:51 Potassium 4.0 mmol/L (3.3-5.1) 06/12/25 08:51 Chloride 103 mmol/L (98-108) 06/12/25 08:51 Carbon Dioxide 23.8 mmol/L (21.0-32.0) 06/12/25 08:51 Anion Gap 10 (5-15) 06/12/25 08:51 BUN 12 mg/dL (4-19) 06/12/25 08:51 Creatinine 0.77 mg/dL (0.70-1.20) 06/12/25 08:51 Est GFR (MDRD) Non-Af 90 (>60) 06/12/25 08:51 BUN/Creatinine Ratio 15.4 RATIO (10-20) 06/12/25 08:51 Glucose 112 mg/dL (70-99) H 06/12/25 08:51 Vancomycin Trough 24.4 ug/mL (5.0-15.0) H 06/12/25 00:45 Random Vancomycin 16.1 ug/mL (0.0-15.0) H 06/12/25 13:03 Microbiology Microbiology: Microbiology 06/11/25 00:11 Blood Culture (Wb) - Anticubital Right Blood Culture - Preliminary GNR Poss Pseudomonas sp 06/11/25 00:18 Mucosa - Nose SARS-CoV-2, Influenza & RSV (PCR) - Final Goal Trough Goal Trough: 15-20 mcg/mL Pharmacy Plan for Drug Dosing Pharmacy Plan for Drug Dosing: VANCOMYCIN LEVEL RECEIVED Current Vancomycin Dose: ON HOLD- was previously on 1500mg IV Q8h Number of Doses Received: 3 (loading dose + 2 scheduled doses) Vancomycin Level: 16.1 Hours Since Last Dose: 21hr Renal Function: 0.77 Renal Function Trend: stable Lab/Micro: BCx growing GNR, poss pseudomonas spp Vancomycin Plan/Comments: Patient had a trough drawn which resulted in a value of 16.1 (goal 15-20). patient is now within therapeutic goal of vancomycin, so dosing will be resumed. Will start patient on 2000mg IV Q24hr 06/12 @1500 for a predicted trough of 18.5 per vancomycin calculator. Pending Level: 06/14/25 @1430, prior to 3rd dose of new regimen per protocol Pharmacy Service will continue to monitor and adjust dosing as required.
[2025-06-12 14:28] VITALS: BP 126/68; PULSE 75; RESP 18; TEMP 36.8; O2SAT 95
[2025-06-12] MEDS: Vancomycin HCl 2,000 MG in 0.9% Normal Saline (500mL Bag) 500 ML 250 MG IV (15:38)
[2025-06-12] MEDS: Albuterol 2.5 MG/3 ML VIAL.NEB. INHALATION (15:49)
[2025-06-12 15:50] VITALS: PULSE 74; RESP 20
[2025-06-12 22:55] VITALS: BP 116/65; PULSE 83; RESP 18; TEMP 37.2; O2SAT 94
[2025-06-13] VITALS (7 sets, daily range): BP systolic 113–128; BP diastolic 65–80; PULSE 60–86; RESP 16–20; TEMP 36.7–37.2; O2SAT 88–95
[2025-06-13] MEDS: Piperacil/Tazobactam 3.375 GM in 0.9% Normal Saline (50mL MB+) 50 ML IV ×3 (05:29→21:08)
[2025-06-13] MEDS: 0.9% Saline Lock 10 ML Syringe IV ×3 (05:30→14:13)
[2025-06-13 07:40] LABS: Anion Gap 13 (5-15); BUN 14 mg/dL (4-19); BUN/Creat Ratio 16.1 RATIO (10-20); Calcium,Total 9.0 mg/dL (7.6-11.0); Carbon Dioxide 29.9 mmol/L (21.0-32.0); Chloride 96 mmol/L (98-108); Estimated Creatinine Clearance 137.81 ml/min (50-250); Glucose 116 mg/dL (70-99); Potassium 3.8 mmol/L (3.3-5.1)
--- NOTE | 2025-06-13 07:58 | PCM.PN.HOSP ---
Reason for Visit Chief Complaint: Concern for recurrent lower extremity cellulitis Subjective Subjective Fever has broke. Still with LE edema. Objective Data Objective Data Vital Signs: Vital Signs Temp Pulse Resp BP Pulse Ox O2 Del Method O2 Flow Rate 36.8 C 69 18 123/67 H 94 Room Air 2 06/13/25 03:30 06/13/25 03:30 06/13/25 03:30 06/13/25 03:30 06/13/25 03:30 06/13/25 03:30 06/11/25 15:27 Oxygen Flow Rate (L/min) 2 Oxygen Delivery Method Room Air Weight: 227.3 kg Body Mass Index (BMI) 88.7 Intake & Output: Intake and Output for Last 24 Hours 06/11/25 06/12/25 06/13/25 23:59 23:59 23:59 Intake Total 5700 / 5700 690 / 690 50 / 50 Output Total 2700 / 4100 94417 / 31087 6200 / 6200 Balance 3000 / 1600 -9410 / -04210 -6150 / -6150 Lab / Micro Data 06/11/25 06:20 06/13/25 06:37 Labs: Laboratory Results - last 24 hr 06/12/25 08:51: Sodium 137, Potassium 4.0, Chloride 103, Carbon Dioxide 23.8, Anion Gap 10, BUN 12, Creatinine 0.77, Estim Creat Clear Calc 155.71, Est GFR (MDRD) Non-Af 90, BUN/Creatinine Ratio 15.4, Glucose 112 H, Calcium 8.5 06/12/25 13:03: Random Vancomycin 16.1 H 06/13/25 06:37: Sodium 138, Potassium 3.8, Chloride 96 L, Carbon Dioxide 29.9, Anion Gap 13, BUN 14, Creatinine 0.87, Estim Creat Clear Calc 137.81, Est GFR (MDRD) Non-Af 78, BUN/Creatinine Ratio 16.1, Glucose 116 H, Calcium 9.0 Micro: Microbiology 06/11/25 00:11 Blood Culture (Wb) - Anticubital Right Blood Culture - Final Pseudomonas aeruginosa 06/11/25 00:18 Mucosa - Nose SARS-CoV-2, Influenza & RSV (PCR) - Final Physical Exam Const alert and no apparent distress HEENT head/scalp atraumatic and moist oral mucous membranes Resp normal respiratory effort, no retractions, no use of accessory muscles and clear to auscultation bilaterally Cardio regular rate, regular rhythm, S1 normal heart sound and S2 normal heart sound GI normal to inspection, nondistended, normoactive bowel sounds, soft to palpation, non-tender and non-distended Extremity normal to inspection Neuro Sensorium / Orientation: awake and alert Assessment & Plan Assessment/Plan (1) Anasarca: PLAN: Acute HFpEF. Chest x-ray is limited due to body habitus cannot rule out pulmonary vascular congestion. Patient with marked edema her lower extremities. I see venous stasis changes to her lower extremities without seeing any overt cellulitis. I feel much of her leg issues are more related with venous stasis changes as they are warm but patient does have marked lower extremity edema. Patient has been started now on a furosemide drip. Monitor closely Patient with marked edema her lower extremities. Kidney function seems to be tolerating. So we will continue the furosemide drip for now. (2) Bacteremia: PLAN: Pseudomonas unclear source. UA/UCx negative. continue pip/tazo. DC vancomycin PLAN: Plan Chronic medical conditions: ? Class III obesity with MIGUEL and obesity hypoventilation syndrome: BMI 91 on admit. Complicates hospital course, care and prognosis. Weight loss recommended. Continue CPAP ? Hypertension: Will hold home lisinopril for now, restart as needed. ? GERD: Continue PPI. ? Anxiety/depression: Continue home BuSpar and venlafaxine. ? Asthma: Stable on room air at rest, not in acute exacerbation. Continue home short acting dilators as needed. ? Mild iron deficiency anemia: Hemoglobin 12.6 on admit, stable at baseline. Continue home iron supplement. ? History of stage III decubitus ulcer MIGUEL: On CPAP. DVT prophylaxis: Lovenox twice daily Charges/Coding Visit Charges Inpatient E&M: 70014 Subs Hosp L2
[2025-06-13] MEDS: Lactobacillis Acidophilus 1 CAP PO ×2 (08:27→21:08)
[2025-06-13] MEDS: Furosemide 500 MG in Empty Viaflex 50 mL 1 EACH CONT INF (09:36)
--- NOTE | 2025-06-13 10:11 | WOUNDNOTE ---
In to reassess the right lower leg. redness and warmth about the same today. pt states she feels a little better today. blood cultures positive for pseudomonas. unclear etiology. will monitor.
[2025-06-13] MEDS: 0.9% Normal Saline (250mL Bag) 250 ML 15 ML IV (14:23)
[2025-06-14] VITALS (7 sets, daily range): BP systolic 110–143; BP diastolic 52–84; PULSE 70–82; RESP 16–20; TEMP 36–36.9; O2SAT 88–97; BMI 89.1; BMI 88.2
[2025-06-14] MEDS: 0.9% Saline Lock 10 ML Syringe IV ×2 (05:29→12:39)
[2025-06-14] MEDS: Piperacil/Tazobactam 3.375 GM in 0.9% Normal Saline (50mL MB+) 50 ML IV ×3 (05:29→22:08)
[2025-06-14 07:21] LABS: Hematocrit 42.7 % (37-47); Hemoglobin 13.9 g/dL (12.0-15.0); Immature Granulocytes Count 0.030 X10^3/uL (0.0-0.0); Mean Corp Hgb Conc 32.6 g/dL (32-36); Mean Corpuscular Volume 82.4 fL (81-99); Mean Platelet Vol. 9.6 fl (6.2-12.0); NRBC Flagged by Analyzer 0 % (0-5); Platelet Count 156 K/mm3 (150-450); RBC Distribution Width CV 14.6 % (11.6-14.6); RBC Distribution Width SD 43.9 fl (35.1-43.9); Red Blood Count 5.18 M/mm3 (4.2-5.4); White Blood Count 5.6 K/mm3 (4.4-11.0)
--- NOTE | 2025-06-14 08:17 | PCM.PN.HOSP ---
Reason for Visit Chief Complaint: Concern for recurrent lower extremity cellulitis Subjective Subjective Improved edema on legs. Objective Data Objective Data Vital Signs: Vital Signs Temp Pulse Resp BP Pulse Ox O2 Del Method O2 Flow Rate 36.8 C 70 16 114/77 92 Room Air 2 06/14/25 03:10 06/14/25 03:10 06/14/25 03:10 06/14/25 03:10 06/14/25 03:10 06/14/25 03:10 06/13/25 08:10 Oxygen Flow Rate (L/min) 2 Oxygen Delivery Method Room Air Weight: 228.4 kg Body Mass Index (BMI) 89.1 Intake & Output: Intake and Output for Last 24 Hours 06/12/25 06/13/25 06/14/25 23:59 23:59 23:59 Intake Total 690 / 690 1195.7 / 1195.7 50 / 50 Output Total 74165 / 81949 8000 / 9800 3400 / 3400 Balance -9410 / -10181 -6804.3 / -8604.3 -3350 / -3350 Lab / Micro Data 06/14/25 07:00 06/14/25 07:00 Labs: Laboratory Results - last 24 hr 06/14/25 07:00: WBC 5.6, RBC 5.18, Hgb 13.9, Hct 42.7, MCV 82.4, MCH 26.8 L, MCHC 32.6, RDW Std Deviation 43.9, RDW Coeff of Rani 14.6, Plt Count 156, MPV 9.6, Immature Gran % (Auto) 0.500, Neut % (Auto) 70.4 H, Lymph % (Auto) 16.4 L, [place] % (Auto) 12.1 H, Eos % (Auto) 0.2, Baso % (Auto) 0.4, Absolute Neuts (auto) 3.9, Absolute Lymphs (auto) 0.91, Nucleated RBC % 0 Micro: Microbiology 06/11/25 00:05 Blood Culture (Wb) - Anticubital Left Blood Culture - Preliminary No growth in 48 hours. 06/11/25 00:30 Urine, Catheterized Urine Culture - Final Culture exhibits no growth. 06/11/25 00:11 Blood Culture (Wb) - Anticubital Right Blood Culture - Final Pseudomonas aeruginosa 07/13/25 00:18 Mucosa - Nose SARS-CoV-2, Influenza & RSV (PCR) - Final Physical Exam Const alert and no apparent distress HEENT head/scalp atraumatic and moist oral mucous membranes Resp normal respiratory effort, no retractions, no use of accessory muscles and clear to auscultation bilaterally Cardio regular rate, regular rhythm, S1 normal heart sound and S2 normal heart sound GI normal to inspection, nondistended, normoactive bowel sounds, soft to palpation, non-tender and non-distended Extremity normal to inspection and full ROM Assessment & Plan Assessment/Plan (1) Anasarca: PLAN: Acute HFpEF. Chest x-ray is limited due to body habitus cannot rule out pulmonary vascular congestion. Patient with marked edema her lower extremities. I see venous stasis changes to her lower extremities without seeing any overt cellulitis. I feel much of her leg issues are more related with venous stasis changes as they are warm but patient does have marked lower extremity edema. Patient has been started now on a furosemide drip. Monitor closely Patient with marked edema her lower extremities. Kidney function seems to be tolerating. So we will continue the furosemide drip for now. (2) Bacteremia: PLAN: Pseudomonas unclear source. UA/UCx negative. continue pip/tazo. Could discharge with fluoroquinolone to complete a 10-day course of antibiotics. PLAN: Plan Chronic medical conditions: ? Class III obesity with MIGUEL and obesity hypoventilation syndrome: BMI 91 on admit. Complicates hospital course, care and prognosis. Weight loss recommended. Continue CPAP ? Hypertension: Will hold home lisinopril for now, restart as needed. ? GERD: Continue PPI. ? Anxiety/depression: Continue home BuSpar and venlafaxine. ? Asthma: Stable on room air at rest, not in acute exacerbation. Continue home short acting dilators as needed. ? Mild iron deficiency anemia: Hemoglobin 12.6 on admit, stable at baseline. Continue home iron supplement. ? History of stage III decubitus ulcer MIGUEL: On CPAP. DVT prophylaxis: Lovenox twice daily Charges/Coding Visit Charges Inpatient E&M: 72179 Subs Hosp L2
[2025-06-14 08:38] LABS: Anion Gap 13 (5-15); BUN 21 mg/dL (4-19); BUN/Creat Ratio 19.2 RATIO (10-20); Calcium,Total 9.1 mg/dL (7.6-11.0); Carbon Dioxide 31.0 mmol/L (21.0-32.0); Chloride 93 mmol/L (98-108); Estimated Creatinine Clearance 112.46 ml/min (50-250); Glucose 119 mg/dL (70-99); Potassium 3.9 mmol/L (3.3-5.1)
--- NOTE | 2025-06-14 09:33 | WOUNDNOTE ---
In to reassess the right leg. the redness does appear to be improving. pt states I do feel like I could probably go home today. Pt awaiting the hospitalist to see her today. no open areas noted. will monitor.
[2025-06-14] MEDS: Lactobacillis Acidophilus 1 CAP PO ×2 (10:29→22:10)
[2025-06-14] MEDS: Furosemide 500 MG in Empty Viaflex 50 mL 1 EACH CONT INF (12:31)
[2025-06-15 03:50] VITALS: BP 139/79; PULSE 65; RESP 18; TEMP 36.6; O2SAT 96
[2025-06-15 05:30] VITALS: BMI 88.1
[2025-06-15] MEDS: 0.9% Saline Lock 10 ML Syringe IV ×2 (05:40→21:28)
[2025-06-15] MEDS: Piperacil/Tazobactam 3.375 GM in 0.9% Normal Saline (50mL MB+) 50 ML IV ×3 (05:40→21:23)
[2025-06-15 06:31] LABS: Anion Gap 13 (5-15); BUN 26 mg/dL (4-19); BUN/Creat Ratio 25.1 RATIO (10-20); Calcium,Total 9.0 mg/dL (7.6-11.0); Carbon Dioxide 31.3 mmol/L (21.0-32.0); Chloride 93 mmol/L (98-108); Estimated Creatinine Clearance 114.68 ml/min (50-250); Glucose 123 mg/dL (70-99); Potassium 3.8 mmol/L (3.3-5.1)
--- NOTE | 2025-06-15 07:31 | PCM.PN.HOSP ---
Reason for Visit Chief Complaint: Concern for recurrent lower extremity cellulitis Subjective Subjective Decreased edema. Getting up and ambulating without difficulty. Objective Data Objective Data Vital Signs: Vital Signs Temp Pulse Resp BP Pulse Ox O2 Del Method O2 Flow Rate 36.6 C 65 18 139/79 H 96 Room Air 2 06/15/25 03:50 06/15/25 03:50 06/15/25 03:50 06/15/25 03:50 06/15/25 03:50 06/15/25 03:50 06/14/25 17:18 Oxygen Flow Rate (L/min) 2 Oxygen Delivery Method Room Air Weight: 225.7 kg Body Mass Index (BMI) 88.1 Intake & Output: Intake and Output for Last 24 Hours 06/13/25 06/14/25 06/15/25 23:59 23:59 23:59 Intake Total 1195.7 / 1195.7 1516.92 / 1516.92 50 / 50 Output Total 8000 / 9800 5590 / 7290 3975 / 3975 Balance -6804.3 / -8604.3 -4073.08 / -5773.08 -3925 / -3925 Lab / Micro Data 06/14/25 07:00 06/15/25 05:47 Labs: Laboratory Results - last 24 hr 06/14/25 07:00: Sodium 137, Potassium 3.9, Chloride 93 L, Carbon Dioxide 31.0, Anion Gap 13, BUN 21 H, Creatinine 1.07, Estim Creat Clear Calc 112.46, Est GFR (MDRD) Non-Af 61, BUN/Creatinine Ratio 19.2, Glucose 119 H, Calcium 9.1 06/15/25 05:47: Sodium 137, Potassium 3.8, Chloride 93 L, Carbon Dioxide 31.3, Anion Gap 13, BUN 26 H, Creatinine 1.04, Estim Creat Clear Calc 114.68, Est GFR (MDRD) Non-Af 63, BUN/Creatinine Ratio 25.1 H, Glucose 123 H, Calcium 9.0 Micro: Microbiology 06/11/25 00:05 Blood Culture (Wb) - Anticubital Left Blood Culture - Preliminary No growth in 48 hours. 06/11/25 00:30 Urine, Catheterized Urine Culture - Final Culture exhibits no growth. 06/11/25 00:11 Blood Culture (Wb) - Anticubital Right Blood Culture - Final Pseudomonas aeruginosa 06/11/25 00:18 Mucosa - Nose SARS-CoV-2, Influenza & RSV (PCR) - Final Physical Exam Const alert and no apparent distress Constitutional Narrative: on room air. no respiratory distress. no conversational dyspnea. Resp normal respiratory effort and no retractions GI GI Narrative: obese. Extremity Extremity Narrative: decreased edema in LE bilaterally. Assessment & Plan Assessment/Plan (1) Anasarca: PLAN: Acute HFpEF. Chest x-ray is limited due to body habitus cannot rule out pulmonary vascular congestion. Patient with marked edema her lower extremities. I see venous stasis changes to her lower extremities without seeing any overt cellulitis. I feel much of her leg issues are more related with venous stasis changes as they are warm but patient does have marked lower extremity edema. Patient has been started now on a furosemide drip. Monitor closely Patient with marked edema her lower extremities. Kidney function seems to be tolerating. So we will continue the furosemide drip for now. (2) Bacteremia: PLAN: Pseudomonas unclear source. UA/UCx negative. continue pip/tazo. Could discharge with fluoroquinolone to complete a 10-day course of antibiotics (through 06/21) PLAN: Plan Chronic medical conditions: ? Class III obesity with MIGUEL and obesity hypoventilation syndrome: BMI 91 on admit. Complicates hospital course, care and prognosis. Weight loss recommended. Continue CPAP ? Hypertension: Will hold home lisinopril for now, restart as needed. ? GERD: Continue PPI. ? Anxiety/depression: Continue home BuSpar and venlafaxine. ? Asthma: Stable on room air at rest, not in acute exacerbation. Continue home short acting dilators as needed. ? Mild iron deficiency anemia: Hemoglobin 12.6 on admit, stable at baseline. Continue home iron supplement. ? History of stage III decubitus ulcer MIGUEL: On CPAP. DVT prophylaxis: Lovenox twice daily Disposition: Discussed with the patient. And she would like to continue with IV diuresis as she is having improvement of her edema. Dermatitis reasonable hopefully just 1 or 2 more days here in the hospital particular since her blood pressure and creatinine are tolerating that. Charges/Coding Visit Charges Inpatient E&M: 27497 Subs Hosp L2
[2025-06-15 10:00] VITALS: BP 114/78; PULSE 75; RESP 17; TEMP 37.2; O2SAT 92
[2025-06-15] MEDS: Lactobacillis Acidophilus 1 CAP PO ×2 (10:18→21:22)
[2025-06-15] MEDS: 0.9% Normal Saline (250mL Bag) 250 ML 15 ML IV (15:21)
[2025-06-15 17:38] VITALS: BP 122/66; PULSE 86; RESP 18; TEMP 36.6; O2SAT 96
[2025-06-15] MEDS: Furosemide 500 MG in Empty Viaflex 50 mL 1 EACH CONT INF (18:08)
[2025-06-15 21:33] VITALS: BP 129/72; PULSE 79; RESP 16; TEMP 36.8; O2SAT 96
[2025-06-16 04:00] VITALS: BP 131/77; PULSE 75; RESP 16; TEMP 36.8; O2SAT 96
[2025-06-16 05:14] VITALS: BMI 87.4
[2025-06-16] MEDS: Piperacil/Tazobactam 3.375 GM in 0.9% Normal Saline (50mL MB+) 50 ML IV (05:44)
[2025-06-16 06:49] LABS: Anion Gap 15 (5-15); BUN 28 mg/dL (4-19); BUN/Creat Ratio 28.9 RATIO (10-20); Calcium,Total 9.3 mg/dL (7.6-11.0); Carbon Dioxide 27.4 mmol/L (21.0-32.0); Chloride 94 mmol/L (98-108); Estimated Creatinine Clearance 122.19 ml/min (50-250); Glucose 131 mg/dL (70-99); Potassium 3.7 mmol/L (3.3-5.1)
--- NOTE | 2025-06-16 06:57 | PCM.PN.HOSP ---
Reason for Visit Chief Complaint: Concern for recurrent lower extremity cellulitis Objective Data Objective Data Vital Signs: Vital Signs Temp Pulse Resp BP Pulse Ox O2 Del Method O2 Flow Rate 98.3 F 75 16 131/77 H 96 CPAP 2 06/16/25 04:00 06/16/25 04:00 06/16/25 04:00 06/16/25 04:00 06/16/25 04:00 06/16/25 04:01 06/14/25 17:18 Oxygen Flow Rate (L/min) 2 Oxygen Delivery Method CPAP Weight: 493 lb 6.312 oz Body Mass Index (BMI) 87.4 Intake & Output: Intake and Output for Last 24 Hours 06/14/25 06/15/25 06/16/25 23:59 23:59 23:59 Intake Total 1516.92 / 1516.92 1361.87 / 1721.87 710 / 710 Output Total 5590 / 7290 5925 / 7025 2750 / 2750 Balance -4073.08 / -5773.08 -4563.13 / -5303.13 -2040 / -2040 Lab / Micro Data 06/14/25 07:00 06/16/25 05:50 Labs: Laboratory Results - last 24 hr 06/16/25 05:50: Sodium 136, Potassium 3.7, Chloride 94 L, Carbon Dioxide 27.4, Anion Gap 15, BUN 28 H, Creatinine 0.97, Estim Creat Clear Calc 122.19, Est GFR (MDRD) Non-Af 68, BUN/Creatinine Ratio 28.9 H, Glucose 131 H, Calcium 9.3 Micro: Microbiology 06/11/25 00:05 Blood Culture (Wb) - Anticubital Left Blood Culture - Preliminary No growth in 48 hours. 06/11/25 00:30 Urine, Catheterized Urine Culture - Final Culture exhibits no growth. 06/11/25 00:11 Blood Culture (Wb) - Anticubital Right Blood Culture - Final Pseudomonas aeruginosa 06/11/25 00:18 Mucosa - Nose SARS-CoV-2, Influenza & RSV (PCR) - Final Assessment & Plan Assessment/Plan (1) Anasarca: PLAN: Acute HFpEF. Chest x-ray is limited due to body habitus cannot rule out pulmonary vascular congestion. Patient with marked edema her lower extremities. I see venous stasis changes to her lower extremities without seeing any overt cellulitis. I feel much of her leg issues are more related with venous stasis changes as they are warm but patient does have marked lower extremity edema. Patient has been started now on a furosemide drip. Monitor closely Patient with marked edema her lower extremities. Kidney function seems to be tolerating. So we will continue the furosemide drip for now. (2) Bacteremia: PLAN: Pseudomonas unclear source. UA/UCx negative. continue pip/tazo. Could discharge with fluoroquinolone to complete a 10-day course of antibiotics (through 06/21) PLAN: Plan Chronic medical conditions: ? Class III obesity with MIGUEL and obesity hypoventilation syndrome: BMI 91 on admit. Complicates hospital course, care and prognosis. Weight loss recommended. Continue CPAP ? Hypertension: Will hold home lisinopril for now, restart as needed. ? GERD: Continue PPI. ? Anxiety/depression: Continue home BuSpar and venlafaxine. ? Asthma: Stable on room air at rest, not in acute exacerbation. Continue home short acting dilators as needed. ? Mild iron deficiency anemia: Hemoglobin 12.6 on admit, stable at baseline. Continue home iron supplement. ? History of stage III decubitus ulcer MIGUEL: On CPAP. DVT prophylaxis: Lovenox twice daily Disposition: Discussed with the patient. And she would like to continue with IV diuresis as she is having improvement of her edema. Dermatitis reasonable hopefully just 1 or 2 more days here in the hospital particular since her blood pressure and creatinine are tolerating that.
--- NOTE | 2025-06-16 07:02 | ECHOCS_ITS ---
Reason For Study Reason For Study: CHF Procedure This was a 2D Doppler, Color Flow transthoracic echocardiogram. The study was technically difficult. Exam performed portable in patient room. Left Ventricle Normal size and thickness. Borderline LV systolic function. Estimated LVEF 45- 50%. Stage I diastolic dysfunction. Right Ventricle Normal right ventricle. Atria The left atrium is mildly enlarged. Normal right atrium. Mitral Valve Trivial mitral valve insufficiency. Tricuspid Valve Normal tricuspid valve. Unable to estimate RV systolic pressure due to inadequate jet, pulmonary artery pressure probably normal. Aortic Valve Trisinus/trileaflet aortic valve. Pulmonic Valve The pulmonic valve is not well visualized. Great Vessels Mildly dilated aortic root. Pericardium/Pleural No pericardial effusion. Medication Diluted definity 4.0ml given slow IV push to enhance endocardial definition. MMode/2D Measurements & Calculations RVDd: 3.9 cm Ao root diam: 4.4 cm LAV(MOD- bp): 53.4 ml LAV(MOD- bp) Indexed: 18.8 ml/m2 LAV(MOD- sp2): 44.4 ml LAV(MOD- sp4): 60.5 ml SV(MOD- sp4): 61.6 ml LVAd ap4: 38.7 cm2 LVAd ap2: 31.1 cm2 LVLd ap4: 7.9 cm LVLd ap2: 7.3 cm SI(MOD- sp4): 21.7 ml/m2 EDV(MOD-sp4): 155.0 ml EDV(MOD-sp2): 108.0 ml EDV(sp4-el): 161.8 ml EDV(sp2-el): 111.8 ml LVAs ap4: 27.4 cm2 LVAs ap2: 22.6 cm2 LVLs ap4: 6.8 cm LVLs ap2: 6.7 cm ESV(MOD-sp4): 93.4 ml ESV(MOD-sp2): 63.1 ml ESV(sp4-el): 93.8 ml ESV(sp2-el): 65.1 ml EF(MOD-sp4): 39.7 % EF(MOD-sp2): 41.6 % EF(sp4-el): 42.0 % SV(MOD-sp2): 44.9 ml SV(sp4-el): 68.0 ml LA A4 area: 21.0 cm2 SI(MOD-sp2): 15.8 ml/m2 LA dimension(2D): 3.8 cm TAPSE: 1.9 cm RA A4 area: 13.4 cm2 Time Measurements MV dec time: 0.33 sec Doppler Measurements & Calculations MV E max oj: 82.9 cm/sec Lat Peak E' Oj: 7.4 cm/sec Med Peak E' Oj: 7.9 cm/sec MV A max oj: 89.8 cm/sec E/E' lat: 11.2 E/E' med: 10.5 MV E/A: 0.92 MV dec slope: 249.9 cm/sec2 Ao V2 max: 156.8 cm/sec LV V1 max: 120.0 cm/sec Ao max P.8 mmHg LV V1 max P.8 mmHg Ao V2 mean: 113.1 cm/sec Ao mean P.7 mmHg Ao V2 VTI: 34.7 cm PA V2 max: 93.1 cm/sec ECHO/Echo Complete W/ Contrast Interpretation Summary The study was technically difficult. Borderline LV systolic function. Estimated LVEF 45-50%. Stage I diastolic dysfu nction. The left atrium is mildly enlarged. Mildly dilated aortic root. Ordering Physician: Brittani Looney Referring Physician: ALONDRA ROSENBERG Performed By: Rosie Cox RDCS
[2025-06-16 08:06] LABS: Magnesium 2.1 mg/dL (1.5-2.2)
[2025-06-16 08:40] VITALS: BP 118/77; PULSE 75; RESP 14; TEMP 36.6; O2SAT 95
[2025-06-16] MEDS: Lactobacillis Acidophilus 1 CAP PO (08:51)
--- NOTE | 2025-06-16 10:07 | PCM.DC.SUM ---
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 Anasarca compounded by underlying chronic bilateral lower extremity lymphedema with concern for bilateral lower extremity cellulitis, unable to rule out possibility of acute HFpEF #2. Pseudomonal bacteremia of unclear specific etiology, 1 of 2 blood cultures positive #3. Morbid Obesity #4. Hypertension #5. Anxiety and depression #6. Asthma #7. Chronic anemia/iron deficiency anemia #8. MIGUEL on CPAP nightly #9. GERD #10. History stage III decubitus ulcer #11. CKD stage II per GFR trending Medications at Discharge Home Medications acetaminophen 500 mg capsule 1,000 mg PO Q6H PRN Pain 07/11/21 ferrous sulfate 325 mg (65 mg iron) tablet (FeroSul) 325 mg PO DAILY@1200 iron #30 tabs 08/01/21 venlafaxine 75 mg capsule,extended release 24 hr (Effexor XR) 225 mg (3 x 75 mg) PO DAILY depression #90 caps 09/03/21 lisinopril 10 mg tablet 10 mg PO DAILY blood pressure 07/24/23 nystatin 100,000 unit/gram topical powder (Nyamyc) 1 applic topical BID yeast infection 30 days #60 grams 07/31/23 cholecalciferol (vitamin D3) 1 tab PO DAILY supplement 04/04/24 valacyclovir 1 gram tablet 2,000 mg PO BID PRN cold sore 04/07/24 L.acidophil,salivari-Bifido bifidum-Strep thermoph 175 mg capsule 1 cap PO BID supplement 10 days #20 caps 05/09/24 OS-V3-[id number]-Y2-V9-S9-B7-B12-vit C 1 tab PO DAILY vitamin 06/11/25 albuterol sulfate 2.5 mg/3 mL (0.083 %) solution for nebulization 2.5 mg continuous nebulization Q4H PRN PRN dyspnea 06/11/25 buspirone 5 mg tablet 5 mg PO BID mood 06/11/25 calcium carbonate (Ally-[place] Heartburn Chew) 600 mg PO TID PRN dyspepsia 06/11/25 cholestyramine (with sugar) 4 gram oral powder 2 - 4 ea PO DAILY supp 06/11/25 multivitamin (Daily Multi-Vitamin tablet) 1 tab PO DAILY supp 06/11/25 pantoprazole 20 mg tablet,delayed release 20 mg PO DAILY stomach 06/11/25 furosemide 40 mg tablet (Lasix) 40 mg PO DAILY 30 days #30 tabs 06/16/25 levofloxacin 750 mg tablet 750 mg PO DAILY 6 days #6 tabs 06/16/25 Hospital Course Operations None Procedures 2-D Echocardiogram and EKG Summary of Care Provided Minutes Spent on Discharge: 35 Hospital Course: The patient is a 55 y/o F w/ PMHx: CKD stage II per GFR trending, chronic BL LE lymphedema, Morbid obesity, HTN, Anxiety and Depression, Asthma, Chronic anemia/Fe deficiency anemia, MIGUEL on CPAP q HS, GERD who presented to the [facility] ED 06/11/2025 with history of concern for bilateral lower extremity recurrent cellulitis with significant bilateral lower extremity swelling prompting eventual ED evaluation. Patient was initiated on IV antibiotic therapy and cultures were obtained with noted 1 of 2 blood cultures eventually positive for Pseudomonas treated with IV Zosyn eventually transition to oral Levaquin at discharge to complete antibiotic therapy but unclear exact source. Given significant venous stasis some suspicion for possible pulmonary venous congestion given difficulty with assessment on chest x-ray given habitus. Patient was transitioned eventually to a Lasix drip with significant diuresis undertaken with improvement of bilateral lower extremity swelling/anasarca as well as lessened erythematous appearance. 06/16/2025 echocardiogram with borderline LV systolic function with EF 45 to 50% with stage I diastolic dysfunction, mildly enlarged LA, mildly dilated aortic root. Patient was transitioned off of the IV Lasix drip and started on oral Lasix 40 mg daily with recommended follow-up with primary care physician for repeat basic metabolic panel to assure no electrolyte disturbances and continued normal renal function. TSH 2.840, magnesium 2.1. Patient given clinical improvement discharged to home with PCP follow-up as well as the wound care center given significant chronic lymphedema to assist with assuring bilateral lower extremity swelling is monitored potentially be fitted for outpatient compression stockings if appropriate. DAY OF DISCHARGE PROGRESS NOTE: Subjective: Patient without acute event overnight per self and nursing report. Patient does report feeling improved, able to lay flat without issue, breathing better and her legs do not feel swollen or tender. Patient denies fever, chills, nausea, emesis, abdominal pain, chest pain or dyspnea. Patient agreeable to discharge to home. Patient will be discharged with follow-up with primary care physician within 3-5 days in addition to wound care center for chronic lymphedema. Objective: T97.8, heart rate 75, BP 118/77, respiratory rate 14, 95% on room air. Physical Examination: General: awake, alert, oriented x 3 and cooperative, laying in the PCU bed, no acute distress. Skin: normal color, turgor, no icterus, cyanosis except improving and resolved bilateral lower extremity questionable cellulitis more suspicious for venous stasis skin changes. HEENT: AT/NC, EOMI, PERRLA, MMM. Lungs: Diminished, distant, likely secondary to morbidly obese habitus, no evidence of distress, no rales, ronchi or wheezing; Heart: Regular rate and rhythm; no gallop, rub audible. Abdomen: soft, morbidly obese, NTTP, distant BS, no discern distention however habitus makes evaluation difficult. Extremities: no cyanosis, no clubbing, chronic bilateral lower extremity lymphedema, improved since initial ED arrival, able to see wrinkles in her distal lower extremities, erythema present but more suspicious for venous stasis skin changes at this time. Neurological: patient awake, alert, oriented as noted, cognitive function appears intact upon questioning,; pupils equally reactive to light and accommodation, cranial nerves II-XII grossly normal, moving all 4 extremities, strength improved, mildly to moderately globally decreased. Psychiatric: affect appears fatigued otherwise normal, no acute evidence of depressive or anxiety feelings. Assessment and Plan: Please see hospital summary above. Weight / BMI Weight Weight: 493 lb 6.312 oz Body Mass Index (BMI) 87.4 ABG / Lab / Microbiology Data 06/14/25 07:00 06/16/25 05:50 Laboratory: Laboratory Results - last 24 hr 06/16/25 05:50: Sodium 136, Potassium 3.7, Chloride 94 L, Carbon Dioxide 27.4, Anion Gap 15, BUN 28 H, Creatinine 0.97, Estim Creat Clear Calc 122.19, Est GFR (MDRD) Non-Af 68, BUN/Creatinine Ratio 28.9 H, Glucose 131 H, Calcium 9.3, Magnesium 2.1, TSH 2.840 Microbiology: Microbiology 06/11/25 00:05 Blood Culture (Wb) - Anticubital Left Blood Culture - Final No growth in 5 days. 06/11/25 00:30 Urine, Catheterized Urine Culture - Final Culture exhibits no growth. 06/11/25 00:11 Blood Culture (Wb) - Anticubital Right Blood Culture - Final Pseudomonas aeruginosa 06/11/25 00:18 Mucosa - Nose SARS-CoV-2, Influenza & RSV (PCR) - Final Radiography Diagnostic Testing: Radiology Impression Echocardiogram 06/16/25 07:02 Interpretation Summary The study was technically difficult. Borderline LV systolic function. Estimated LVEF 45-50%. Stage I diastolic dysfunction. The left atrium is mildly enlarged. Mildly dilated aortic root. Ordering Physician: Brittani Looney Referring Physician: HELENA ROSENBERG Performed By: Rosie Cox ANNETTE D/C Instructions May resume sexual activity in: 10-14 days Weight Bearing Status: Weight bearing as tolerated Call your doctor if you observe: Fever of 101 or Higher, Shortness of breath, Dizziness, Swelling in the ankles, Chest pain, Increased palpitations (irregular heartbeat), Calf discomfort and Uncontrolled pain DC O2, CPAP, BIPAP Needs Home O2 Discharge instructions: No Meaningful Use Info Meaningful Use Meaningful Use Diagnoses (Choose all that apply): CHF CHF PROMISE/ARB ordered at discharge?: Yes Documented LVEF (%): 50 Discharge Plan Admission Admit Date/Time: 06/11/25 02:49 Primary Reason for Your Visit: Lower extremity cellulitis, Bacteremia (blood stream infection). Attending Provider: Brittani Looney Primary Care Provider: Helena Rosenberg Consulting Providers: Mauri Sampson; Antoni Abdul Instructions Patient Instructions: Understanding Lymphedema, Cellulitis Dc, ED Bacteremia, Suspected (Adult) Additional Instructions / Restrictions: ADDITIONAL DISCHARGE INSTRUCTIONS/PLAN OF CARE: During the admission you were treated for bilateral lower extremity skin infection associated with significant swelling known as anasarca with antibiotic therapies initially IV eventually transitioned on your discharge to oral Levaquin with a stop date of 06/22/2025 in addition to IV Lasix utilized and IV drip form in addition with notable weight loss and improvement of lower extremity swelling. We have started you on oral Lasix at discharge but please continue to monitor blood pressure and if your systolic blood pressure is < 110 please hold. We would also like you to have a repeat basic metabolic panel at follow-up with your primary care physician to make sure your labs are appropriate given this new medication. During the admission you also had noted growth of Pseudomonas however it was only on 1 of 2 blood cultures and this is sensitive to Levaquin to which you have also been discharged on which will treat both skin infection and this potential bloodstream infection. We strongly encourage that you elevate bilateral lower extremities above your heart when seated and in bed. We also strongly recommend continued efforts for weight loss and lifestyle changes. It would be beneficial to maintain bilateral lower extremity snug promise wraps starting at the toes to at least just below the knees, overlapping, no skin showing. It is vital that there be no skin showing to assist with keeping the fluid out of her lower extremities. It is important that there be no areas where the wrap is stuck in folds as fluid will primarily collect in those regions then. Outpatient your primary care physician can work to assist with possible compression stockings that need to be fitted. We have also placed a referral to the wound care center as they may assist in chronic lymphedema evaluation and treatment. Discharge Orders/Prescriptions Prescriptions: New furosemide [Lasix] 40 mg tablet 40 mg PO DAILY 30 Days Qty: 30 0RF Rx Instructions: Hold for SBP < 110 levofloxacin 750 mg tablet 750 mg PO DAILY 6 Days Qty: 6 0RF Continued acetaminophen 500 mg capsule 1,000 mg PO Q6H PRN (Reason: Pain) ferrous sulfate [FeroSul] 325 mg (65 mg iron) Tablet 325 mg PO DAILY@1200 Qty: 30 0RF venlafaxine [Effexor XR] 75 mg capsule,extended release 24hr 225 mg PO DAILY Qty: 90 0RF Rx Instructions: take 3 capsules every AM lisinopril 10 mg tablet 10 mg PO DAILY nystatin [Nyamyc] 100,000 unit/gram Powder 1 applic topical BID 30 Days Qty: 60 0RF Protocol: *Topical Application Instructions APPLICATION INSTRUCTIONS: apply to skin folds, particularly BLE Patient Comments: pt. reports not taking it cholecalciferol (vitamin D3) 1 tab PO DAILY Patient Comments: PT UNAWARE OF DOSAGE valacyclovir 1 gram tablet 2,000 mg PO BID PRN (Reason: cold sore) Patient Comments: x1 day L.acidoph,saliva-B.bif-S.therm 175 mg Capsule 1 cap PO BID 10 Days Qty: 20 0RF Ally-[place] Heartburn Chew 300 mg (750 mg) tablet,chewable 600 mg PO TID PRN (Reason: dyspepsia) pantoprazole 20 mg tablet,delayed release (DR/EC) 20 mg PO DAILY cholestyramine (with sugar) 4 gram powder 2 - 4 ea PO DAILY multivitamin [Daily Multi-Vitamin] Tablet 1 tab PO DAILY [id number]-[id number]-V9-B7-B12-vit C 1 tab PO DAILY buspirone 5 mg tablet 5 mg PO BID albuterol sulfate 2.5 mg /3 mL (0.083 %) solution for nebulization 2.5 mg continuous nebulization Q4H PRN PRN (Reason: dyspnea) Referrals / Follow Up: Helena Rosenberg PA [Primary Care Provider] - (Follow-up within 3-5 days to review admission.) [facility] [Non-Staff] - 06/20/25 9:00 am (Please follow-up and establish for BL LE lymphedema evaluation and ongoing treatment.) Disposition Disposition (needs filled in before D/C Order can be placed): Home, Self Care Charges/Coding Visit Charges Inpatient E&M: 41792 Disch Hosp >30min
--- NOTE | 2025-06-16 13:25 | CASEMGMT ---
Patient has order for discharge. RN CM in to discuss needs at discharge. Patient denies needs or help at discharge. Patient had no further questions or concerns.
--- NOTE | 2025-06-16 13:43 | CASEMGMT ---
MORIS PATIÑO NOTE: Pt states her place of employment requires JANE form be faxed to [employer] for any missed time of work d/t illness that is greater than 3 days. Form completed, signed by Dr Looney, and faxed to [employer]. Confirmation received via fax that document went through successfully. Drew CHRISN MORIS CM
[2025-06-16 17:12] VITALS: BP 152/99; PULSE 84; RESP 16; TEMP 36.6; O2SAT 94
== END 2025-06-16 17:32 | disposition home or self-care (01) | DRG 602 ==
LOC: ED 06-11 02:23 → PCU 06-11 04:26
PROVIDERS: Admitting Provider Hospitalist; Emergency Provider Surgery; PCP Physician Assistant; Visit Provider Family Medicine
DX: L03.115 Cellulitis of right lower limb (principal); I50.31 Acute diastolic (congestive) heart failure; R78.81 Bacteremia; E66.2 Morbid (severe) obesity with alveolar hypoventilation; Z68.45 Body mass index [BMI] 70 or greater, adult; I13.0 Hypertensive heart and chronic kidney disease with heart failure and stage 1 through stage 4 chronic kidney disease, or unspecified chronic kidney disease; B96.5 Pseudomonas (aeruginosa) (mallei) (pseudomallei) as the cause of diseases classified elsewhere; F32.A Depression, unspecified; J45.909 Unspecified asthma, uncomplicated; D50.9 Iron deficiency anemia, unspecified; K21.9 Gastro-esophageal reflux disease without esophagitis; F41.9 Anxiety disorder, unspecified; I89.0 Lymphedema, not elsewhere classified; N18.2 Chronic kidney disease, stage 2 (mild); I87.8 Other specified disorders of veins; L03.116 Cellulitis of left lower limb; E66.813 Obesity, class 3; Z79.899 Other long term (current) drug therapy
CPT/HCPCS: 36415; 36569; 51702; 71046; 80048; 80053; 80202; 81001; 82803; 83036; 83605; 83735; 83880; 84443; 84484; 85025; 85027; 85610; 85730; 87040; 87077; 87086; 87184; 87186; 87631; 93005; 93306; 94640; 94668; 97116; 97162; 97166; 97530; 97535; 99252; 99285; Q9957; A4216; C8929; G0463; J1938; J2405

== ENCOUNTER 2025-11-17 06:37 | Day surgery (SDC) | payer BC, SELFPAY ==
--- NOTE | 2025-11-16 16:16 | PAT.ANESEVAL ---
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 When Was Last Pacemaker Check QUESTION #4 FULL TEXT: You/Your Family Experience fever (hyperthermia) with Anesthesia Last Oral Intake Last Oral intake: Last Oral Intake NPO since Meds taken in AM with sips of water? Meds patient instructed to take am of surgery PONV PONV - manufacturing cost estimator: PONV - manufacturing cost estimator Female Yes 11/16/25 13:27 HX of Motion Sickness Yes 11/16/25 13:27 HX of N/V After Surgery No 11/16/25 13:27 Non-Smoker Yes 11/16/25 13:27 Duration of Surgery greater No 11/16/25 13:27 than 60 minutes Number of Risk Factors 3 11/16/25 13:27 PONV Score Moderate Risk 11/16/25 13:27 Height & Weight Height & Weight: Anesthesia: Height & Weight Height 5 ft 3 in 08/01/25 10:59 Respiratory Assessment Respiratory Assessment - manufacturing cost estimator: Respiratory Tract Infection Hx - manufacturing cost estimator Hx Respiratory Tract Infection No 11/16/25 13:27 STOP Sleep Apnea STOP Sleep Apnea - manufacturing cost estimator: STOP Sleep Apnea - manufacturing cost estimator Hx Hypertension No 11/16/25 13:27 Hx Sleep Apnea Yes 11/16/25 13:27 CPAP Yes 11/16/25 13:27 BIPAP No 11/16/25 13:27 Do you snore loudly (louder than talking or can be heard Do you often feel tired/ fatigued/ sleepy during daytime? Has anyone observed you stop breathing during sleep? STOP Results Positive 11/16/25 13:27 QUESTION #5 FULL TEXT : Do you snore loudly (louder than talking or can be heard through closed doors)? 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 Specify any problems Hx of Preganancy in last 3 No 11/16/25 13:27 Months Nurse Filling Out Transfusion JZOLLINGE 11/16/25 13:27 & Questions: Date: 11/16/25 11/16/25 13:27 Time: 13:30 11/16/25 13:27 Patient unable to answer at this time (ie. confused, unrespo /Reproduction History /Reproductive History - manufacturing cost estimator: /Reproductive Hx- manufacturing cost estimator Hx Now No 11/16/25 13:27 Gestational Age (in weeks): EDC: Hx Hx Para Hx Section SAB No 11/16/25 13:27 Does the father of the baby or his family experience fever w Father of the baby Malignant Hypertension history comment [facility] Medical History (Updated 11/16/25 @ 13:45 by Kellen López) History of urinary incontinence Wears glasses History of cellulitis Non-smoker CPAP (continuous positive airway pressure) dependence Sleep apnea History of echocardiogram Cardiology follow-up encounter Chronic diarrhea Morbid obesity Hyperglycemia Failure of outpatient treatment PLMD (periodic limb movement disorder) Lymphedema associated with obesity Ascending aorta dilatation Abnormal echocardiogram IBS (irritable bowel syndrome) Depression Heel spur Osteoarthritis (arthritis due to wear and tear of joints) GERD without esophagitis Insomnia Anxiety Home Medications ?Medication ?Instructions ?Recorded ?Last Taken ?Type acetaminophen 500 mg capsule 1,000 mg PO Q6H PRN Pain 07/11/21 05/04/24 History ferrous sulfate 325 mg (65 mg 325 mg PO DAILY@1200 iron #30 tabs 08/01/21 06/09/25 Rx iron) tablet (FeroSul) cholecalciferol (vitamin D3) 1 tab PO DAILY supplement 04/04/24 06/09/25 History albuterol sulfate 2.5 mg/3 mL 2.5 mg continuous nebulization Q4H 06/11/25 Unknown History (0.083 %) solution for nebulization PRN PRN dyspnea buspirone 5 mg tablet 5 mg PO BID mood 06/11/25 06/09/25 History calcium carbonate (Ally-[place] 600 mg PO TID PRN dyspepsia 06/11/25 06/09/25 History Heartburn Chew) cholestyramine (with sugar) 4 gram 2 - 4 ea PO DAILY supp 06/11/25 06/09/25 History oral powder multivitamin (Daily Multi-Vitamin 1 tab PO DAILY supp 06/11/25 06/09/25 History tablet) pantoprazole 20 mg tablet,delayed 20 mg PO DAILY stomach 06/11/25 06/09/25 History release venlafaxine 75 mg capsule,extended 75 mg PO TID 09/01/25 Unknown History release 24 hr peg 3350-electrolytes 236 240 ml PO Q10M #4,000 mL 10/13/25 Unknown Rx gram-22.74 gram-6.74 gram-5.86 gram solution (Golytely) amlodipine 5 mg tablet 5 mg PO DAILY 11/16/25 Unknown History Allergy/AdvReac Type Severity Reaction Status Date / Time PROMISE Inhibitors Allergy Severe Swelling Verified 11/16/25 13:13 amoxicillin AdvReac Mild Itching Verified 11/16/25 13:14 adhesive tape AdvReac Unknown Other Verified 11/16/25 13:13 Family History Mother Alzheimer's dementia Surgical History (Updated 11/16/25 @ 13:27 by Kellen López) Hx of colonoscopy H/O foot surgery History of hip surgery History of cholecystectomy Social History household members: spouse housing: house number of children: 1 current occupational status: employed 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 For lunch she has a bowl of soup and crackers which she takes to work. Sometimes has pretzels for a snack. Eats lunch at 12:30- 1 and does not get home until 7 PM and then she is starved. Her sometimes cooks and it is usually not healthy and may include pizza, hot dogs, fast food. Does not plan meals and her hisband is not supportive of healthy eating. He is a little overweight and likes to eat junk. Audit: Pertinent Findings Pertinent Findings EKG Perinent findings: EKG 06/11/2025. Normal sinus rhythm. Echo (EF%) pertinent findings: Echo 06/15/2025 borderline LV systolic function. Estimated LVEF 45 to 50%. Stage I diastolic dysfunction. Left atrium is mildly enlarged. Mildly dilated aortic root. Consult pertinent findings: Cardiology visit 08/01/2025. 55-year-old female with history of morbid obesity she weighs 508 pounds today on our scales. Patient's dyspnea is multifactorial but most prominently related to her morbid obesity. LV function is near normal with an EF 45 to 50% and no significant valvular heart disease. We did discuss weight loss options including medical and surgical interventions. I recommend she discuss the possibility of adding Jardiance to her medical regimen with her primary care physician. Given her hemoglobin A1c of 6.4 and her LVEF of 40 to 50 to 45% she may qualify for SGLT2 inhibitor therapy. This would be of benefit in assisting with diuresis and is cardioprotective. Recommendation Anesthesia Recommendation Anesthesia recommendation: OPTIMIZED for anesthesia
[2025-11-17] VITALS (8 sets, daily range): BP systolic 110–139; BP diastolic 59–84; PULSE 70–80; RESP 18–20; TEMP 36.3–36.7; O2SAT 95–99; BMI 87.5
--- OUTSIDE RECORDS SUMMARY | 2025-11-17 06:57 | XMS RPT_ITS | CCD ---
Author Organization [facility] TAX INVESTIGATOR [facility] Care Team Providers Care Terrazzo Worker Helper Name Role Phone Unavailable Unavailable Unavailable Ady Englandia C Unavailable Unavailable Ady Englandia C Unavailable Unavailable Unavailable Primary Care Provider Unavailabl e Unavailable Primary Care Provider Unavailanna e Alondra Rosenberg PA-C Primary Care Provider ALONDRA ROSENBERG Attending Unavailable ALONDRA ROSENBERG Primary Care Unavailable ALONDRA ROSENBERG Admitting Unavailable Unavailable Primary Care Provider Unavailabl [...] Referring Provider Dr. Mandy Arce Emergency Provider Jay, Dr. Gibson Admit Provider Jay, Dr. Gibson Referring Provider Jay, Dr. Gibson Other Provider Dr. Calderon Ware Attending Provider Unavailable Jeanie, Dr. Mancera Other Provider Unavailable Rosenberg PA-C, Alondra A Primary Care Provider HELDER TAVERA Attending Unavailable ROSENBERG, ALONDRA Referring Unavailable ROSENBERG, ALONDRA Primary Care Unavailable Khaitan, Dr. Null Attending Unavailable Khaitan, Dr. Null Referring Unavailable UNKNOWN, PCP Primary Care Unavailable Khaitan, Dr. Null Attending Unavailable Khaitan, Dr. Null Referring Unavailable UNKNOWN, PCP Primary Care Unavailable Rosenberg PA-C, Alondra J Unavailable Rosenberg PA-C, Alondra J Unavailable [phone] Infectious Disease Provider Unavailable Unav ailable Cardiology Provider Unavailable Unavailable Minerva HEAD TENNIS PROFESSIONAL, Nora Unavailable Unavaila ble Rodney HEAD TENNIS PROFESSIONAL, Ashley Unavailable Unavailable Eloy HEAD TENNIS PROFESSIONAL, Carlo Unavailable Unavailable Frank HEAD TENNIS PROFESSIONAL, Jazlyn M Unavailable Unavailab li Torres MA, Ashley Unavailable Unavailable Zaugg HEAD TENNIS PROFESSIONAL, Cadence Unavailable Unavailable Unavailable Unavailable Suarez HEAD TENNIS PROFESSIONAL, Ceci Unavailable Unavailabl e Rosenberg PA, PA Alodnra Primary Care Provider Dr. Gian Villanueva Emergency Provider [phone] Dr. Calderon Ojeda Admit Provider Unavailabl Dr. Calderon Osorio Other Provider Unavailabl e Dr. Rubin Hadley Attending Provider Dr. Rubin Hadley Other Provider Dr. Antoni Osman Attending Provider Dr. Wander Garcia Other Provider Dermatology Provider Unavailable Unavailable Rheumatolgy Provider Unavailable Unavailable Rosenberg PA-C, Alondra J Primary Care Provider ROSENBERG, ALONDRA J Admitting Unavailable YAMILE JO Attending Unavailabl e PROVIDER, GENERIC EMS Referring Unavailabl e ROSENBERG, ALONDRA J Primary Care Unavailable YAMILE JO Attending Unavailabl e ROSENBERG, ALONDRA J Primary Care Unavailable Rosa Hackett LPN Unavailable Rosenberg PA, Alondra Primary Care Provider JuanchoBita HERNÁNDEZ, Dr. Mendoza Emergency Provider Camilla HERNÁNDEZ, Dr. Dotson Admit Provider Camilla HERNÁNDEZ, Dr. Dotson Attending Provider Camilla HERNÁNDEZ, Dr. Dotson Other Provider Aayush LAL, Dr. Brittani Machado Attending Provider Franko HERNÁNDEZ, Dr. Corrales Other Provider Dr. Antoni Abdul DO Attending Provider Dmitriy LAL, Dr. Champagne Attending Provider Aayush LAL, Dr. Brittani Machado Other Provider [facility] Unavailable Maxine Carlos Unavailable Unavailanna Keys MD, Graciela Chen Unavailable ROSENBERG, ALONDRA Referring Unavailable ROSENBERG, ALONDRA Attending Unavailable ROSENBERG, ALONDRA Primary Care Unavailable Rosenberg PA, Alondra Referring Provider Roshni LLA, Dr. Glover Attending Provider Rosenberg PA, Alondra Primary Care Unavailable Mauri Sampson Consulting Unavailable Mauri Sampson Admitting Unavailable Antoni Abdul Attending Unavailable Jopperi, Antoni Consulting Unavailable Rosenberg PA, Alondra Primary Care Unavailable Ihsan Izaguirre Attending Unavailable Rosenberg PA, Alondra Primary Care Unavailable Rosenberg PA, Alondra Referring Unavailable Khai Barakat Attending Unavailable Mauri Sampson Attending Unavailable Brittani Looney Attending Unavailable Brittani Looney Consulting Unavailable Rosenberg PA, Alondra Primary Care Unavailable Delonte Styles Attending Unavailable Brittani Looney Referring Unavailable Rosenberg PA, Alondra Primary Care Unavailable Brittani Looney Attending Unavailable Mauri Sampson Consulting Unavailable Mosteller, Mauri Admitting Unavailable Antoni Abdul Consulting Unavailable Allergies Allergy Classification Reported Allergen(s) Allergy Type Date of Onset Reaction(s) Facility (1 source) Adhesive Tape Drug allergy (disorder) 08-01-2025 [facility] Repository Medications Current Medications Medication Drug Class(es) Dates Sig (Normalized) Sig (Original) acetaminophen 500 mg oral capsule (15 sources) Start: 07-11-2021 take 2 capsules by mouth every six hours as needed for pain Acetaminophen 500 mg capsule Active 1000 mg PO EVERY 6 HOURS as needed for Pain July 11, 2021 12:00am Start: 07-11-2021 take 1000 mg by mout h every six hours Acetaminophen Active 1000 MG PO EVERY 6 HOURS July 11, 2021 12:00am Start: 07-03-2021 End: 07-03-2021 Start: 06-02-2021 End: 06-03-2021 take 325-650 mg by mouth every four hours as needed acetaminophen (TYLENOL) tablet 325-650 mg Start: 06-02-2021 End: 06-02-2021 acetaminophen (TYLENOL) tabl et 650 mg albuterol 0.83 mg/ml inhalation solution (20 sources) beta2-Adrenergic Agonist Start: 06-11-2025 Albut katia Sulfate 2.5 mg /3 mL (0.083 %) solution for nebulization Active 2.5 mg continuous nebulization EVERY 4 HOURS NEEDED as needed for dyspnea June 11, 2025 12:00am Start: 03-14-2023 albuterol 108 (90 Base) MCG/ACT inhaler Start: 08-01-2021 End: 07-24-2023 Albuterol Sulfate (Ventolin Hfa) 90 mcg/actuation Hfa Aerosol Inhaler Discontinued 2 NMA INHALATION EVERY 6 HOURS NEEDED as needed for SOB &/OR WHEEZING 1 0 August 01, 2021 12:00am July 24, 2023 11:28pm Start: 08-01-2021 End: 07-24-2023 take 1 puff(s) by inhalation every six hours as needed Albuterol Sulfate (Ventolin Hfa) 90 mcg/actuation Hfa Aerosol Inhaler Discontinued 2 PUFF INHALATION EVERY 6 HOURS NEEDED August 01, 2021 12:00am July 24, 2023 11:28pm Start: 07-03-2021 End: 07-03-2021 Start: 05-31-2021 take 2 puff(s) by [facility] every four to six hours as needed [...] of Breath, Starting on 06/21/21 at 1730 benzocaine 0.2 mg/mg oral ge l (2 [...] Active busPIRone hydrochloride 5 mg oral tablet (20 sources) Start: 06-09-2025 take 1 tablet by mouth twice daily Buspirone 5 mg tablet Active 5 mg PO TWICE A DAY June 11, 2025 12:00am mood calcium carbonate 600 mg oral capsule (3 sources) Start: 06-11-2025 Calcium Carbonate (Ally-Cornell Heartburn Chew) 300 mg (750 mg) tablet,chewable Active 600 mg PO THREE TIMES A DAY as needed for dyspepsia June 11, 2025 12:00am Cholecalciferol (10 sources) Vitamin D Start: 04-04-2024 cholecalciferol (vitamin D3) Active 1 {tbl} PO DAILY April 04, 2024 12:00am supplement Start: 04-04-2024 take 1 tablet by jose once daily cholecalciferol (vitamin D3) Active 1 TABLET PO DAILY April 04, 2024 12:00am Start: 07-04-2021 Start: 07-01-2021 take 2000 [IU] by mo [facility] once daily 2,000 Units, Oral, DAILY, First [...] suspension (20 sources) Bile Acid Sequestrant Start: 07-25-2025 take 2-4 g by mouth once daily cholestyramine (with sugar) 4 gram oral powder ; 2-4 gram daily for 0 days Quantity: 378 {Gram} Refills: 1 Ordered: 25-Jul-2025 RAYNE Rosenberg Start: 25-Jul-2025 Start: 02-06-2025 Cholestyramine (With Sugar) 4 gram powder Active 2 - 4 NMA PO DAILY June 11, 2025 12:00am supp Start: 08-05-2024 take 2-4 g by mouth once daily cholestyramine (with sugar) 4 gram oral powder ; 2-4 gram daily for 0 days Quantity: 378 {Gram} Refills: 1 Ordered: 05-Aug-2024 RANYE Rosenberg Start: 05-Aug-2024 Start: 07-24-2023 End: 08-18-2023 Cholestyramine (With Sugar) 4 gram powder Discontinued NMA July 24, 2023 12:00am August 18, 2023 [...] 1 scoop po qam 1 Can 5 05/25/2018 Active Cholestyramine 4 GM Oral Packet ; 1 daily (4 GM) Status: Inactive collagenase 0.25 unt/mg topi olesya ointment (2 sources) Collagen-specific Enzyme Start: 07-04-2021 [...] tablet 0 06/01/2020 06/11/2020 Active docusate sodium 50 mg / sennosides, fpc 8.6 mg oral tablet (2 sources) Start: 07-03-2021 Start: 06-18-2021 take 1-2 tablets by mouth once daily 2 tablet, Oral, 2 TIMES DAILY, First dose (after last modification) on Thu06/18/21 at 0900 Hold for > 1-2 BMs per day fluconazole 150 mg oral tablet (8 sources) Azole Antifungal Start: 06-27-2025 fluconazole 1 50 mg tablet ; 1 (one) tablet x 1 dose for 0 days Quantity: 1 {Tablet} Refills: 0 Ordered: 27-Jun-2025 MD Graciela Keys Start: 27-Jun-2025 Start: 06-09-2021 End: 06-13-2021 200 mg, Intravenous, EVERY 2 4 HOURS, First dose on Thu06/09/21 at 1400, Until Discontinued 60 actuat formoterol fumarat e 0.005 mg/actuat / mometasone furoate 0.2 mg/actuat metered dose inhaler (2 sources) Corticosteroid, beta2-Adrenergic Agonist Start: 07-03-2021 Start: 06-22-2021 take 2 puff(s) by in halation twice daily 2 puff, Inhalation, 2 TIMES DAILY, First dose on Thu06/22/21 at 0830 Rinse mouth out with water (without swallowing) after every dose. furosemide 40 mg oral tablet (20 sources) Loop Diuretic Start: 06-16-2025 End: 07-21-2025 Furosemide (Lasix) 40 mg tablet Active 40 mg PO DAILY July 21, 2025 10:36am take 40mg in the am and 20mg in pm Start: 03-26-2022 End: 09-10-2022 take 1 tablet by mouth once daily Lasix 40 MG Oral Tablet ; 1 (one) Tablet daily for 0 days Quantity: 30 {Tablet} Refills: 0 Ordered: 10-Sep-2022 RAYNE Rosenberg Start: 26-Mar-2022 End: 10-Sep-2022 Status: Inactive Start: [...] Thu06/07/21 at 04 17, For 1 dose HaileeEmilia: cabinet override Start: 06-06-2021 End: 06-06-2021 40 mg, Intravenous, ONCE, On Thu06/06/21 at 1145, For 1 dose Start: 05-17-2021 End: 07-03-2021 take 1 tablet by mouth once daily furOSEmide 20 MG tablet Take 20 mg by mouth daily. 0 05/17/2021 Active glucagon (rdna) 1 mg injection (1 source) [...] and after infusion, Starting on Thu06/27/21 at 1132 Do NOT administer to lumens [...] lower extremity itching, Starting on Thu06/03/21 at 1811 Apply to lower extremities. Substituted for Hydrocortisone topical. hydrOXYzine pamoate 25 mg oral capsule (2 sources) Antihistamine Start: 06-24-2021 End: 07-17-2021 sodium hypochlorite 1.25 mg/ml topical solution (1 source) Start: 06-21-2021 Irrigation, DAILY, First dose on Thu06/21/21 at 1045 L.Acidoph,Saliva-B. Bif-S.Therm 175 mg capsule (1 source) Start: 08-01-2025 take 1 capsule by mouth twice daily as needed L.Acidoph,Saliva -B.Bif-S.Therm 175 mg capsule Active 1 NMA PO TWICE A DAY as needed for supplement August 01, 2025 11:06am L.acidophil,salivar i-Bifido bifidum-Strep thermoph 175 mg capsule (20 sources) L.acidophil,sali vari-Bifido bifidum-Strep thermoph 175 mg capsule ; 1 two times daily (175 mg) lisinopril 10 mg oral tablet (20 sources) Angiotensin Converting Enzyme Inhibitor Start: 04-28-2025 lisinopriL 10 mg tablet ; 1 (one) Tablet daily for 0 days Quantity: 60 {Tablet} Refills: 0 Ordered: 27-Jun-2025 RAYNE Coley Start: 27-Jun-2025 Start: 10-24-2024 lisinopriL 10 mg tablet ; 1 (one) Tablet daily for 0 days Quantity: 90 {Tablet} Refills: 1 Ordered: 24-Oct-2024 RAYNE Rosenberg Start: 24-Oct-2024 Start: 04-01-2024 lisinopriL 10 mg tablet ; 1 (one) Tablet daily for 0 days Quantity: 90 {Tablet} Refills: 1 Ordered: 01-Apr-2024 RAYNE Rosenberg Start: 01-Apr-2024 Start: 03-21-2024 lisinopriL 10 mg tablet ; 1 (one) Tablet daily for 0 days Quantity: 30 {Tablet} Refills: 0 Ordered: 21-Mar-2024 RAYNE Rosenberg Start: 21-Mar-2024 Start: 02-08-2024 lisinopriL 10 mg tablet ; 1 (one) Tablet daily for 0 days Quantity: 30 {Tablet} Refills: 0 Ordered: 08-Feb-2024 RAYNE Rosenberg Start: 08-Feb-2024 Start: 12-28-2023 lisinopriL 10 mg tablet ; 1 (one) Tablet daily for 0 days Quantity: 30 {Tablet} Refills: 0 Ordered: 28-Dec-2023 RAYNE Rosenberg Start: 28-Dec-2023 Start: 07-24-2023 take 1 tablet by jose once daily Lisinopril 10 mg tablet Active 10 mg PO DAILY July 24, 2023 12:00am blood pressure Start: 07-24-2023 take 20 mg by mouth once daily Lisinopril Active 20 MG PO DAILY July 24, 2023 12:00am Lisinopril 10 MG Oral Tablet Quantity: 0 Refills: 0 Ordered: 22-Dec-2022 DO Active loperamide hydrochloride 2 mg oral capsule (20 sources) Opioid Agonist Start: 07-21-2025 Loperamide (An ti-Diarrheal (Loperamide)) 2 mg capsule Active 2 mg PO Q4H as needed July 21, 2025 12:00am administer after each loose stool until symptoms controlled; do not exceed 8 mg per 24 hrs Start: 05-09-2024 End: 06-11-2025 take 1 capsule by mouth every four hours as needed for diarrhea Loperamide 2 mg Capsule Discontinued 2 mg PO EVERY 4 HOURS NEEDED as needed for DIARRHEA 0 0 May 09, 2024 12:00am June 11, 2025 2:07am magnesium hydroxide 80 mg/ml oral suspension (1 source) Start: 06-03-2021 take 30 mL by mouth once daily as needed for constipation 30 mL, Oral, DAILY PRN, Constipation, Starting on Thu06/03/21 at 1623 First line therapy for constipation. melatonin 3 mg oral tablet (3 sources) Start: 06-19-2021 End: 06-20-2021 miconazole nitrate 0.02 mg/mg topical powder (2 sources) Azole Antifungal Start: 07-03-2021 Start: 06-17-2021 apply 1 dose topically twice d aily Topical, 2 TIMES DAILY, First dose on Thu06/17/21 at 0900 Apply to skin folds. Multiple Vitamin (multivitamin) tablet (1 source) take 1 tablet by mouth once daily Multiple Vitamin (multivitamin) tablet Take 1 tablet by mouth daily. 0 Active Multivitamin (Daily Multi-Vitamin) tablet (3 sources) Start: 06-11-2025 Multivitamin (Daily Multi-Vitamin) tablet Active 1 {tbl} PO DAILY June 11, 2025 12:00am supp Start: 06-11-2025 Multivitamin ( Daily Multi-Vitamin) tablet Active 1 {tbl} PO DAILY June 11, 2025 12:00am bsbsknwwpssd-Lw-hvrv-mineral s Tab (1 source) take 1 tablet by mouth once daily pahzrpgjtmqm-Ba-xzju-minerals Tab Take 1 tablet by mouth daily . Active pantoprazole 20 mg delayed release oral tablet (20 sources) Proton Pump Inhibitor St ar t: 3 Protonix 20 mg tablet,delaye d release ; 1 (one) tablet daily for 0 days Quantity: 30 {Tablet} Refills: 0 Ordered: 18-Jul-2025 RAYNE Rosenberg Start: 18-Jul-2025 Start: 12-21-2024 Protonix 20 mg tablet,delayed release ; 1 (one) tablet daily for 0 days Quantity: 30 {Tablet} Refills: 5 Ordered: 21-Dec-2024 BECCA Marie Start: 21-Dec-2024 Start: 08-01-2021 End: 07-24-2023 take 1 tablet by mouth once daily Pantoprazole 40 mg Tablet,Delayed Release (Dr/Ec) Discontinued 40 mg PO DAILY@0600 30 0 August 01, 2021 12:00am July 24, 2023 11:29pm Start: 07-04-2021 Start: 06-23-2021 take 40 mg by mouth once daily before breakfast 40 mg, Oral, DAILY BEFORE BREAKFAST, First dose (after last modification) on Thu06/23/21 at 0700 Do not crush or break. [...] 07-03-2021 Start: 06-25-2021 take 1 spray(s) by m tony every two hours as needed 1 spray, [...] e flush 0.9 % injection 3 mL valACYclovir 1000 mg oral tablet (20 sources) Herpesvirus Nucleoside Analog DNA Polymerase Inhibitor, Herpes Simplex Virus Nucleoside Analog DNA Polymerase Inhibitor, Herpes Zoster Virus Nucleoside Analog DNA Polymerase Inhibitor Start: 04-07-2024 Valacyclovir 1 gram tablet Active 2000 mg PO TWICE A DAY as needed for cold sore April 07, 2024 12:00am Start: 04-07-2024 take 2000 mg by mout h twice daily Valacyclovir Active 2000 MG PO TWICE A DAY April 07, 2024 12:00am Start: 05-06-2023 End: 07-16-2023 Valtrex 1 gram tablet ; 2 (t wo) Tablet BID x 1 day only at onset of cold sore for 0 days Quantity: 20 {Tablet} Refills: 0 Ordered: 16-Jul-2023 BECCA Palma Start: 06-May-2023 End: 16-Jul-2023 Status: Inactive 24 hr venlafaxine 75 mg extended release oral capsule (20 sources) Serotonin and Norepinephrine Reuptake Inhibitor Start: 08-06-2023 venlafaxine XR (Effexor XR) 75 MG 24 hr capsule Start: 09-03-2021 venlafaxine ER 75 mg capsule,extended release 24 hr ; 3 (three) Capsule once daily for 90 days Quantity: 270 {Capsule} Refills: 1 Ordered: 20-Jul-2025 RAYNE Rosenberg Start: 20-Jul-2025 Start: 08-01-2021 End: 07-24-2023 take 1 capsule by mouth every twenty-four hours Venlafaxine 150 mg Capsule,Extended Release 24hr Discontinued 150 mg PO 0800 30 2 August 01, 2021 12:00am July 24, 2023 [...] Wegovy 0.25 mg/0.5 mL subcutaneous pen injector (20 sources) Start: inject 0.5 mg by subcutaneous injection every week Wegovy 0.25 mg/0.5 mL subcutaneous pen injector ; 0.5 mL once a week x 4 weeks and then increase to 0.5mg once a week for 0 days Quantity: 2 {Milliliter} Refills: 0 Ordered: 09-Jun-2025 RAYNE Rosenberg Start: 09-Jun-2025 Comments: No personal or family history of MEN 2 or thyroid cancer. Start: 06-15-2024 Wegovy 0.25 mg /0.5 mL subcutaneous pen injector ; 0.5 mL once a week x 4 weeks for 0 days Quantity: 2 {Milliliter} Refills: 0 Ordered: 15-Jun-2024 RAYNE Rosenberg Start: 15-Jun-2024 Comments: No personal or family [...] 1,200 mg amoxicillin 500 mg oral capsule (7 sources) Penicillin-class Antibacterial Start: 08-21-2023 End: 04-04-2024 take 1 capsule by mouth once daily Amoxicillin 500 mg capsule Discontinued 500 mg PO DAILY 30 0 August 21, 2023 12:00am April 04, 2024 9:39pm Patient to start after completing cefdinir ascorbic acid 500 mg oral tablet (20 sources) Vitamin C Start: 08-01-2021 End: 04-04-2024 take 1 tablet by mouth at mealtime Ascorbic Acid (Vitamin C) 500 mg Tablet Discontinued 500 mg PO 1200 0 0 August 01, 2021 12:00am April 04, 2024 9:41pm take this medication with the ferrous sulfate with food Start: 06-03-2021 End: 06-03-2021 ascorbic acid (VITAMIN C) ta blet 500 mg take 1 capsule by [facility] once daily Ascorbic Acid 500 MG Oral Capsule ; 1 daily (500 MG) Status: Inactive take 1 tablet by mouth once cristal y ascorbic acid, vitamin C, (VITAMIN C) 100 MG tablet Take 1 (one) tablet (100 mg total) by mouth daily . Active End: 07-03-2021 aspirin 81 mg delayed release oral tablet (20 sources) Platelet Aggregation Inhibitor, Nonsteroidal Anti-inflammatory Drug Start: 07-11-2021 End: 06-11-2025 Aspirin (Adult Low Dose Aspirin) 81 mg tablet,delayed release (DR/EC) Discontinued 81 mg PO DAILY July 11, 2021 12:00am June 11, 2025 2:06am blood thinner Start: 07-03-2021 End: 07-03-2021 End: 06-09-2025 take 1 tablet by mouth once daily Aspirin 81 MG Oral T ablet ; 1 daily (81 MG) End: 09-Jun-2025 Status: Inactive Aspirin 81 MG TA BS Quantity: 0 Refills: 0 Ordered: 22-Dec-2022 DO Active b-complex/zinc (STRESS FORMULA with Zinc) tablet 1 tablet (1 source) Start: 06-03-2021 End: 06-03-2021 b-complex/zinc (STRESS FORMULA with Zinc) tablet 1 tablet bacillus coagulans [id number] unt / lactobacillus acidophilus [id number] unt oral tablet (1 source) End: 07-03-2021 [...] 14 {Capsule} Refills: 0 Ordered: 15-Apr-2024 RAYNE Rosenberg Start: 15-Apr-2024 End: 22-Apr-2024 Status: Inactive Start: 04-08-2024 End: 05-04-2024 take 1 capsule by mouth every twelve hours Cefdinir 300 mg capsule Discontinued 300 mg PO Q12H 14 April 08, 2024 12:00am May 04, 2024 7:31pm Start 04/09 Start: 08-21-2023 End: 04-04-2024 take 1 capsule by mouth every twelve hours Cefdinir 300 mg capsule Discontinued 300 mg PO Q12H 20 August 21, 2023 12:00am April 04, 2024 9:41pm Start: 07-31-2023 End: 08-18-2023 take 1 capsule by mouth every twelve hours Cefdinir 300 mg capsule Discontinued 300 mg PO Q12H 20 10 July 31, 2023 12:00am August 18, 2023 12:49am Start: 08-12-2021 End: 08-19-2021 Cefdinir 300 MG Oral Capsule ; 1 (one) Capsule BID for 7 days Quantity: 14 {Capsule} Refills: 0 Ordered: 12-Aug-2021 RAYNE Rosenberg Start: 12-Aug-2021 End: 19-Aug-2021 Status: Inactive Comments: Please only give a 7 day supply if patient hasn't picked up med yet! Comment on above: Please only give a 7 day supply if patient hasn't picked up med yet! cephalexin 500 mg oral capsule (20 sources) Cephalosporin Antibacterial Start: End: take 1 capsule by mouth four times daily Cephalexin 500 mg capsule Discontinued 500 mg PO 4 TIMES DAILY 40 0 May 09, 2024 12:00am June 11, 2025 2:05am Start: 09-04-2023 End: 09-14-2023 take 2 capsules by mouth every eight hours cephalexin (Keflex) 500 MG capsule Take 2 capsules (1,000 mg) by mouth in the morning and 2 capsules (1,000 mg) at noon and 2 capsules (1,000 mg) before bedtime. Do all this for 10 days. 60 capsule 0 09/04/2023 09/14/2023 Active Start: 07-08-2023 End: 07-24-2023 take 1 capsule by mouth every six hours Cephalexin 500 mg capsule Discontinued 500 mg PO EVERY 6 HOURS 40 0 July 08, 2023 12:00am July 24, 2023 11:28pm Start: 2023 End: 02-17-2023 inject 1 capsule by subcutaneous injection four times daily Cephalexin 500 MG Oral Capsule ; 1 (one) Capsule QID for 4 days Quantity: 16 {Capsule} Refills: 0 Ordered: 13-Feb-2023 RAYNE Rosenberg Start: 13-Feb-2023 End: 17-Feb-2023 Status: Inactive Comments: sub with tablets if cheaper Start: 05-17-2021 End: 05-24-2021 take 1 tablet by mouth three times daily Cephalexin 500 MG Oral Tablet ; 1 (one) Tablet TID for 7 days Quantity: 21 {Tablet} Refills: 0 Ordered: 17-May-2021 RYANE Rosenberg Start: 17-May-2021 End: 24-May-2021 Status: Inactive take 1 tablet by jose th every six hours cephALEXin 500 mg tablet ; 1 every six hours (500 mg) Status: Inactive End: 06-21-2021 Comment on above: sub with tablets if cheaper chlorhexidine gluconate 1.2 mg/ml mouthwash (1 source) Start: 1 End: 1 take 15 mL by mouth twice daily 15 mL, Mouth/Throat, 2 TIMES DAILY, First dose on Thu06/04/21 at 0245 clotrimazole 10 mg/ml topical cream (20 sources) Azole Antifungal Start: 4 End: 5 Clotrimazole 1 % cream Discontinued 1 NMA TOPICAL TWICE A DAY May 04, 2024 12:00am June 11, 2025 2:06am APPLY TO AFFECTED AREA TOPICALLY ( BETWEEN TOES, BOTTOM OF FOOT, SIDE OF FOOT TWICE DAILY UNTIL 1 WEEK AFTER RESOLUTION OF SYMPTOMS Start: 04-15-2024 End: 08-01-2025 Clotrimazole (Antifungal (Cl otrimazole)) 1 % cream Discontinued 1 NMA TOPICAL TWICE A DAY July 21, 2025 12:00am August 01, 2025 11:05am 1 ml dexamethasone phosphate 4 mg/ml injection [...] mcg/kg/hr no faster than every 30 min docusate sodium 100 mg oral capsule (20 sources) Start: 07-21-2025 End: 08-01-2025 take 1 capsule by mouth twice daily Docusate Sodium 100 mg capsule Discontinued 100 mg PO TWICE A DAY July 21, 2025 12:00am August 01, 2025 11:05am Start: 05-09-2024 End: 06-11-2025 take 1 capsule by mouth twice daily Docusate Sodium 100 mg Capsule Discontinued 100 mg PO TWICE A DAY 0 0 May 09, 2024 12:00am June 11, 2025 2:05am doxycycline hyclate 100 mg oral capsule (20 sources) Tetracycline-class Drug Start: 05-09-2024 End: 06-11-2025 take 1 capsule by mouth twice daily Doxycycline Hyclate 100 mg capsule Discontinued 100 mg PO TWICE A DAY 20 0 May 09, 2024 12:00am June 11, 2025 2:05am Start: 07-23-2023 End: 08-18-2023 take 1 capsule by mouth twice daily Doxycycline Hyclate 100 mg capsule Discontinued 100 mg PO TWICE A DAY July 24, 2023 12:00am August 18, 2023 12:49am 0.4 ml enoxaparin sodium 100 mg/ml prefilled syringe (14 sources) Low Molecular Weight Heparin Start: 07-11-2021 End: 08-01-2021 Enoxaparin (Lovenox) 40 mg/0.4 mL syringe Discontinued 40 mg SC Q12H July 11, 2021 12:00am August 01, 2021 4:11pm Start: 06-03-2021 End: 06-03-2021 esomeprazole 20 mg delayed release oral tablet (20 sources) Proton Pump Inhibitor NexIUM 24H R 20 MG Oral Tablet Delayed Release ; 1 as needed (20 MG) Status: Inactive Comments: Medication taken as needed. Comment on above: Medication taken as needed. [id number]-K3-X1-B7-B12- vit C (3 sources) Start: 06-11-2025 End: 08-01-2025 [id number]-[id number]-K5-[id number]-V4-P2-B7-B12 -vit C Discontinued 1 {tbl} PO DAILY June 11, 2025 12:00am August 01, 2025 11:05am vitamin Start: 06-11-2025 ZG-B5-T7-B3-B5 -U3-D4-N10-vit C Active 1 {tbl} PO DAILY June 11, 2025 12:00am vitamin Start: 06-11-2025 OV-R2-P9-B3-B5 -D1-D4-E18-vit C Active 1 {tbl} PO DAILY June 11, 2025 12:00am famotidine 20 mg oral tablet (1 source) Histamine-2 Receptor Antagonist Start: 06-20-2021 End: 06-21-2021 take 20 mg by mouth twice daily 20 mg, Oral, 2 TIMES DAILY, First dose on Carla 06/20/21 at 0900 ferrous sulfate 325 mg delayed release oral tablet (20 sources) Start: 07-11-2021 End: 08-01-2021 take 1 tablet by mouth once daily Ferrous Sulfate 325 mg (65 mg iron) tablet,delayed release (DR/EC) Discontinued 325 mg PO DAILY July 11, 2021 12:00am August 01, 2021 4:11pm Start: 07-05-2021 take 1 tablet by [facility] once daily Ferrous Sulfate (Ferosul) 325 mg (65 mg iron) Tablet Active 325 mg PO DAILY@1200 30 0 August 01, 2021 12:00am iron Start: 07-05-2021 Start: 06-29-2021 End: 07-03-2021 take 325 mg by mouth every other day 325 mg, Oral, EVERY OTHER DAY, First dose on [facility] 06/29/21 at 1100 take 1 tablet by jose once daily Ferrous Sulfate 325 (65 Fe) MG Oral Tablet ; 1 daily (325 (65 Fe) MG) Status: Inactive fluticasone propionate 0.05 mg/actuat metered dose nasal spray (20 sources) Corticosteroid Start: 07-21-2025 End: 08-01-2025 Fluticasone Propionate 50 mcg/actuation spray,suspension Discontinued 1 NMA INTRANASAL TWICE A DAY July 21, 2025 12:00am August 01, 2025 11:05am Start: 07-11-2021 End: 07-24-2023 take 50 ug nasal route twice daily Fluticasone Propionate (Allergy Relief (Fluticasone)) 50 mcg/actuation spray,suspension Discontinued 2 NMA INTRANASAL TWICE A DAY 1 August 01, 2021 4:19pm July 24, 2023 11:29pm administer into each nostril Start: 07-11-2021 End: 07-24-2023 take 1 spray(s) nasal route twice daily Fluticasone Propionate (Allergy Relief (Fluticasone)) 50 mcg/actuation spray,suspension Discontinued 2 SPRAY INTRANASAL TWICE A DAY August 01, 2021 4:19pm July 24, 2023 11:29pm administer into each nostril Start: 07-03-2021 Start: 06-27-2021 take 2 spray(s) nasa l route twice daily 2 spray, Each Nostril, 2 TIMES DAILY, First dose (after last modification) on [facility] 06/27/21 at 1045 gabapentin 300 mg oral capsule (20 sources) [...] DAILY, First dose (after last modification) on [facility] 06/22/21 at 0900 12 hr guaiFENesin 600 mg extended release oral tablet (20 sources) Start: 08-12-2021 End: 08-29-2021 take 1 tablet by mouth twice daily Mucinex 600 MG Oral Tablet Extended Release 12 Hour ; 1 (one) Tablet BID for 30 days Quantity: 60 {Tablet} Refills: 0 Ordered: 29-Aug-2021 RAYNE Rosenberg Start: 12-Aug-2021 End: 29-Aug-2021 Status: Inactive Start: [...] End: 06-01-2020 ketorolac (TORADOL) injection 30 mg JeannetteEmmaKonradSaliva-B .Bif-S.Therm 175 mg Capsule (3 sources) Start: 05-09-2024 End: 08-01-2025 take 1 capsule by mouth twice daily LEmmaDarcyjonatan,Saliva-B .Bif-S.Therm 175 mg Capsule Discontinued 1 NMA PO TWICE A DAY May 09, 2024 12:00am August 01, 2025 11:07am supplement Start: 05-09-2024 take 1 capsule by mouth twice daily L.Acidoph,Saliva-B.Bif-S.Therm 175 mg Ca psule Active 1 NMA PO TWICE A DAY May 09, 2024 12:00am supplement Start: 05-09-2024 take 1 capsule by mouth twice daily L.Darcyjonatan,Saliva-B.Bif-S.Therm 175 mg Ca psule Active 1 NMA PO TWICE A DAY May 09, 2024 12:00am labetalol hydrochloride 5 mg/ml injectable solution (1 source) beta-Adrenergic Gold Start: 06-02-2021 End: 06-03-2021 take 20 mg intravenously every four hours as needed labetalol (NORMODYNE) injection 20 mg lactobacillus acidophilus 10 mg oral tablet (9 sources) Start: 07-24-2023 End: 04-04-2024 take 1 capsule by mouth once daily Lactobacillus Acidophilus (Acidophilus) capsule Discontinued 10 mg PO DAILY July 24, 2023 12:00am April 04, 2024 9:40pm levoFLOXacin 750 mg oral tablet (3 sources) Quinolone Antimicrobial Start: 06-16-2025 End: 06-23-2025 take 1 tablet by mouth once daily Levofloxacin 750 mg tablet Discontinued 750 mg PO DAILY 6 June 16, 2025 12:00am June 22, 2025 12:00am June 23, 2025 12:08am Start: 06-02-2021 End: 06-03-2021 take 750 mg [...] Minutes, EVERY 12 HOURS, First dose on 06/16/21 at 0845 Avoid aged, smoked, or fermented [...] caffeine. magnesium oxide 400 mg oral capsule (12 sources) Start: 08-01-2021 End: 08-18-2023 take 1 capsule by mouth once daily Magnesium Oxide 400 mg magnesium capsule Discontinued 400 mg PO DAILY 30 August 01, 2021 12:00am August 18, 2023 12:50am Start: 06-23-2021 End: 06-28-2021 take 400 mg by mouth twice daily 400 mg, Oral, 2 TIMES DAILY, First dose on Thu06/23/21 at 0900 50 ml magnesium sulfate 40 [...] 10 {Capsule} Refills: 0 Ordered: 10-Sep-2022 RAYNE Rosenberg Start: 10-Sep-2022 End: 15-Sep-2022 Status: Inactive nystatin 100 unt/mg topical powder (20 sources) Polyene Antifungal Start: 07-31-2023 End: 08-01-2025 Nystatin (Nyamyc) 100,000 unit/gram Powder Discontinued 1 NMA TOPICAL TWICE A DAY 60 30 0 July 31, 2023 12:00am August 01, 2025 11:06am yeast infection Please contact the information source for Protocol details. Start: 07-31-2023 Nystatin (Nyam yc) 100,000 unit/gram Powder Active 1 APPLIC TOPICAL TWICE A DAY 60 30 July 31, 2023 12:00am Start: 08-01-2021 End: 07-24-2023 Nystatin (Nyamyc) 100,000 un it/gram powder Discontinued 1 NMA TOPICAL BID@0600,2200 as needed for YEAST August 06, 2021 12:56pm July 24, 2023 11:29pm Please contact the information source for Protocol details. Start: 08-01-2021 End: 07-24-2023 Nystatin (Nyamyc) 100,000 un it/gram powder Discontinued 1 APPLIC TOPICAL BID@0600,2200 August 06, 2021 12:56pm July 24, 2023 11:29pm Nystatin 606165 UNIT/GM External Ointment ; bid ([id number] UNIT/GM) Status: Inactive omeprazole 40 mg delayed release [...] 90 {Capsule} Refills: 1 Ordered: 01-Apr-2024 RAYNE Rosenberg Start: 01-Apr-2024 Start: 03-21-2024 omeprazole 40 mg capsule,delayed release ; 1 (one) Capsule once daily for 0 days Quantity: 30 {Capsule} Refills: 0 Ordered: 21-Mar-2024 RAYNE Rosenberg Start: 21-Mar-2024 Start: 02-08-2024 omeprazole 40 mg capsule,delayed release ; 1 (one) Capsule once daily for 0 days Quantity: 30 {Capsule} Refills: 0 Ordered: 08-Feb-2024 RAYNE Rosenberg Start: 08-Feb-2024 Start: 12-28-2023 omeprazole 40 mg capsule,delayed release ; 1 (one) Capsule once daily for 0 days Quantity: 30 {Capsule} Refills: 0 Ordered: 28-Dec-2023 RAYNE Rosenberg Start: 28-Dec-2023 Start: 06-17-2023 End: 06-11-2025 take 1 capsule by mouth once daily Omeprazole 40 mg capsule,delayed release(DR/EC) Discontinued 40 mg PO DAILY July 24, 2023 12:00am June 11, 2025 2:07am stomach Omeprazole 40 MG Oral Capsule Delayed Release Quantity: 0 Refills: 0 Ordered: 22-Dec-2022 DO Active take 1 capsule by [facility] once daily omeprazole (PRILOSEC) [address] take 10 mg by mouth daily. 0 Active End: 07-03-2021 ondansetron 4 mg disintegrating oral tablet (11 sources) Serotonin-3 Receptor Antagonist Start: 07-08-2023 End: 07-24-2023 take 1 tablet by mouth every eight hours as needed for nausea Ondansetron 4 mg tablet,disintegrating Discontinued 4 mg PO EVERY 8 HOURS NEEDED as needed for Nausea 10 0 July 08, 2023 12:00am July 24, 2023 11:27pm Start: 06-02-2021 End: 06-03-2021 take 4 mg intravenously every four hours as needed ondansetron 4mg/2ml (ZOFRAN) injection 4 mg oxyCODONE hydrochloride 5 mg oral tablet (20 sources) Opioid Agonist Start: 05-09-2024 End: 06-11-2025 take 1 tablet by mouth every four hours as needed for pain Oxycodone 5 mg Tablet Discontinued 5 mg PO EVERY 4 HOURS NEEDED as needed for Pain Score 6-10 12 3 0 May 09, 2024 June 11, 2025 2:07am Cellulitis Cellulitis of right lower limb End: 06-09-2025 oxyCODONE 5 mg capsule ; q4h rs prn (5 mg) End: 09-Jun-2025 Status: Inactive pediatric multivitamin (9 sources) Start: 07-24-2023 End: 08-18-2023 pediatric multivitamin Disco ntinued .Route July 24, 2023 12:00am August 18, [...] End: 06-23-2021 40 mEq, Oral, ONCE, On 06/23/21 at 0730, For 1 dose Dilute with [...] Thu06/04/21 at 01 21, For 1 dose CRELIZABETH MAGDI: cabinet override Do not administer through [...] on Thu06/04/21 at 0118, For 1 dose Semaglutide (Weight Loss) (1 source) Start: 07-21-2025 End: 08-01-2025 Semaglutide (Weight Loss) (Flacogovy) 0.5 mg/0.5 mL pen injector Discontinued 0.5 mg SC EVERY WEEK July 21, 2025 12:00am August 01, 2025 11:06am administer weeks 5 through 8 of therapy 10 ml sodium bicarbonate 84 mg/ml injection (1 source) Start: 06-04-2021 End: 06-04-2021 ONCE PRN, Starting on Thu06/04/21 at 0116, For 1 dose traZODone hydrochloride 100 mg oral tablet (20 sources) Serotonin Reuptake Inhibitor Start: 08-01-2021 End: 07-24-2023 take 1 tablet by mouth at bedtime Trazodone 100 mg Tablet Discontinued 100 mg PO AT BEDTIME August 01, 2021 12:00am July 24, 2023 11:27pm Start: 06-20-2021 triamcinolone acetonide 1 mg/ml topical cream (20 sources) Corticosteroid Start: 07-21-2025 End: 08-01-2025 Triamcinolone Acetonide 0.1 % cream Discontinued 1 NMA TOPICAL THREE TIMES A DAY July 21, 2025 12:00am August 01, 2025 11:06am Start: 05-12-2024 triamcinolone acetonide 0.1 % topical cream ; 1 (one) Application to affected area TID for 0 days Quantity: 30 {Gram} Refills: 0 Ordered: 12-May-2024 RAYNE Rosenberg Start: 12-May-2024 Start: 03-14-2021 End: 08-12-2021 Triamcinolone Acetonide 0.1 % External Cream ; 1 (one) Application to affected areas TID prn for 0 days Quantity: 30 {Gram} Refills: 0 Ordered: 12-Aug-2021 RAYNE Rosenberg Start: 14-Mar-2021 End: 12-Aug-2021 Status: Inactive (20 sources) Start: 06-24-2021 End: 06-24-2021 4,000 [...] 200 mg, Intravenous, ONCE, 1 dose, On [facility] 06/08/21 at 2145 Do not exceed 1.1 [...] 02 02, For 1 dose Nikia Galan: gustavo override Problems Active Problems Problem Classification Problem Date Documented Da te Episodic/Chronic Abdominal pain (1 source) Flank pain; Translations: [Flank pain] Episodic Acute and unspecified renal failure (13 sources) Acute injury of kidney; Translations: [Acute kidney failure, unspecified] Resolved: 1 Episodic Allergic reactions (20 sources) Inflammatory dermatosis; Translations: [Dermatitis, unspecified] 05-12-2024 Episodic Anxiety disorders (20 sources) Anxiety; Translations: [Anxiety disorder, unspecified] Onset: 1 Chronic Aortic; peripheral; and visceral artery aneurysms (20 sources) Ascending aorta dilatation; Translations: [Thoracic aortic ectasia] 07-11-2021 Chronic Bacterial infection; unspecified site (5 sources) Bacteremia; Translations: [Bacteremia] Onset: 5 06-13-2025 Episodic Chronic ulcer of skin (20 sources) Pressure ulcer of buttock stage 3; Translations: [Pressure ulcer of right buttock, stage 3] Onset: 1 Chronic Coagulation and hemorrhagic disorders (3 sources) Platelet count below reference range; Translations: [Thrombocytopenia, unspecified] Onset: 1 Chronic Coma; stupor; and brain damage (2 sources) Daytime somnolence; Translations: [Hypersomnia, unspecified] Episodic Complications of surgical procedures or medical care (13 sources) Ventilator associated pneumonia; Translations: [Ventilator associated pneumonia] Onset: 1 Resolved: Episodic Comment on above: due to MRSA/MSSA Deficiency and other anemia (3 sources) Pancytopenia; Translations: [Other pancytopenia] Onset: 1 Chronic Deficiency and other anemia (17 sources) Iron deficiency anemia due to blood [...] 07-25-2023 Episodic Diseases of white blood cells (6 sources) Leukopenia; Translations: [Decreased white blood cell count, unspecified] Onset: 1 Chronic Esophageal disorders (20 sources) Gastroesophageal reflux disease without esophagitis; Translations: [Gastro-esophageal reflux disease without esophagitis] Onset: 1 08-18-2017 Chronic Essential hypertension (20 sources) Hypertensive disorder; Translations: [Unspecified essential hypertension] 08-26-2023 Chronic Fluid and electrolyte disorders (13 sources) Hyponatremia; Translations: [Hypo-osmolality and hyponatremia] Resolved: Episodic Genitourinary symptoms and ill-defined conditions (2 sources) Urinary incontinence; Translations: [Urinary incontinence, unspecified] Chronic Genitourinary symptoms and ill-defined conditions (20 sources) Dysuria; Translations: [Dysuria] 08-10-2021 Episodic Headache; including migraine (5 sources) Headache; Translations: [Headache] 04-05-2024 Episodic Immunizations [...] with diseases classified elsewhere] Chronic Mood disorders (13 sources) Depressive disorder; Translations: [Depression] 08-02-2021 Chronic Mycoses (20 sources) Infection by Evin albicans; Translations: [Candidiasis, unspecified] Onset: 1 Resolved: Episodic Nausea and vomiting (10 sources) Nausea; Translations: [Nausea] 07-08-2023 Episodic Noninfectious gastroenteritis (20 sources) Chronic diarrhea; Translations: [Noninfective gastroenteritis and colitis, unspecified] 08-05-2024 Episodic Osteoarthritis (20 sources) Osteoarthritis; Translations: [Osteoarthrosis, unspecified whether generalized or localized, site unspecified] 08-26-2023 Chronic Other aftercare (20 sources) Patient encounter status; Translations: [Encounter for palliative care] Resolved: 1 Episodic Other aftercare (2 sources) Long-term current use of antibiotic; Translations: [FDC (current) use of antibiotics] Resolved: 1 Episodic Other and ill-defined heart disease (2 sources) Heart disease; Translations: [Heart disease, unspecified] Chronic Other and ill-defined heart disease (20 sources) Diastolic dysfunction; Translations: [Other ill-defined heart diseases] 06-23-2025 Chronic Other circulatory disease (3 sources) Elevated blood-pressure reading without diagnosis of hypertension; Translations: [Elevated blood-pressure reading, without diagnosis of hypertension] 08-18-2017 Episodic Other circulatory disease (11 sources) Orthostatic hypotension; Translations: [Orthostatic hypotension] 08-10-2021 Episodic Other connective tissue disease (1 source) Swelling of skeletal muscle; Translations: [Other specified soft tissue disorders] Episodic Other connective tissue disease (20 sources) Soft tissue lesion; Translations: [Other specified soft tissue disorders] Episodic Other connective tissue disease (11 sources) Calcaneal spur; Translations: [Calcaneal spur, unspecified foot] 07-04-2021 Episodic Other connective tissue disease (20 sources) Cramp; Translations: [Cramp and spasm] 08-26-2023 Episodic Other connective tissue disease (20 sources) Pain in both feet; Translations: [Pain in right foot] 11-15-2021 Episodic Other diseases of veins and lymphatics (11 sources) Lymphedema associated with obesity; Translations: [Lymphedema, not elsewhere classified] 09-03-2021 Chronic Other diseases of veins and lymphatics (11 sources) Lymphedema, not elsewhere classified; Translations: [Other lymphedema] Onset: Chronic Other diseases of veins and lymphatics (20 sources) Lymphedema; Translations: [Other lymphedema] 07-08-2023 Chronic Other diseases of veins and lymphatics (2 sources) Chronic acquired lymphedema; Translations: [Lymphedema, not elsewhere classified] Onset: 09-04-2023 Chronic Other gastrointestinal disorders (20 sources) Diarrhea; Translations: [Diarrhea, unspecified] 08-18-2017 Episodic Other gastrointestinal disorders (2 sources) Constipation; Translations: [Constipation, unspecified] Resolved: Episodic Other gastrointestinal disorders (2 sources) History of bariatric surgical procedure; Translations: [Bariatric surgery status] Episodic Other hematologic conditions (20 sources) Hyperproteinemia; Translations: [Abnormality of plasma protein, unspecified] 06-15-2024 Episodic Other hematologic conditions (20 sources) ESR raised; Translations: [Elevated erythrocyte sedimentation rate] 06-15-2024 Episodic Other infections; including parasitic (20 sources) Personal history of other infectious and parasitic diseases 08-26-2023 Episodic Other injuries and conditions due to external causes (3 sources) Wound 08-20-2021 Episodic Other lower respiratory disease (20 sources) Dyspnea on exertion; Translations: [Shortness of breath] Episodic Other lower respiratory disease (14 sources) Dyspnea; Translations: [Shortness of breath] 08-18-2017 Episodic Other lower respiratory disease (3 sources) Wheezing; Translations: [Wheezing] 08-18-2017 Episodic Other lower respiratory disease (11 sources) Hypoxemia; Translations: [Hypoxemia] 07-04-2021 Episodic Other lower respiratory disease (1 source) Hypoxemia; Translations: [Hypoxemia] Episodic Other lower respiratory disease (2 sources) Snoring; Translations: [Other respiratory abnormalities] Episodic Other nervous system disorders (20 sources) Carpal tunnel syndrome; Translations: [Carpal tunnel syndrome, right upper limb] 08-02-2021 Chronic Other nervous system disorders (5 sources) Carpal tunnel syndrome of right wrist; [...] Chronic Other nutritional; endocrine; and metabolic disorders (11 sources) Disorder of carbohydrate metabolism; Translations: [Other disorders of intestinal carbohydrate absorption] 08-01-2021 Chronic Other nutritional; endocrine; and metabolic disorders (11 sources) Hypomagnesemia; Translations: [Hypomagnesemia] 08-10-2021 Chronic Comment on above: resolved with supple mentation Other nutritional; endocrine; and metabolic disorders (11 sources) Hyperphosphatemia; Translations: [Other disorders of phosphorus metabolism] 08-10-2021 Chronic Other nutritional; endocrine; and metabolic disorders (2 sources) Obesity; Translations: [Obesity, unspecified] 07-25-2023 Chronic Other nutritional; endocrine; and metabolic disorders (3 sources) Obesity, unspecified; Translations: [Obesity, unspecified] 07-25-2023 Chronic Other nutritional; endocrine; and metabolic disorders (2 sources) Morbid (severe) obesity due to excess calories; Translations: [Morbid (severe) obesity due to excess calories (HCC)] Onset: 2 Chronic Other screening for suspected conditions (not mental disorders or infectious disease) (11 sources) Imaging of thorax abnormal; Translations: [Abnormal [...] caused by tuberculosis or sexually transmitted disease) (15 sources) Pneumonia due to methicillin resistant Staphylococcus aureus; Translations: [Pneumonia due to Methicillin resistant Staphylococcus aureus] Onset: 1 Resolved: Episodic Residual codes; unclassified (20 sources) Obstructive sleep apnea syndrome; Translations: [Obstructive sleep apnea (adult) (pediatric)] Onset: 1 08-24-2017 Chronic Residual codes; unclassified (8 sources) Periodic limb movement disorder; Translations: [Periodic limb movement disorder] 09-03-2021 Chronic Residual codes; unclassified (1 source) Obstructive sleep apnea (adult) (pediatric); Translations: [Obstructive sleep apnea (adult)(pediatric)] Chronic Residual codes; unclassified (1 source) Periodic limb movement disorder; Translations: [Periodic limb movement disorder] 04-08-2024 Chronic Residual codes; unclassified (3 sources) Periodic leg movements of sleep ; Translations: [Periodic limb movement disorder] 05-17-2024 Chronic Residual codes; unclassified (20 sources) Insomnia; Translations: [Insomnia, unspecified] Resolved: Episodic Comment on above: resolved with Trazod one and proper BIPAP with O2 bleed in Residual codes; unclassified (2 sources) Impaired exercise tolerance; Translations: [Other general symptoms] Episodic Residual codes; unclassified (2 sources) Edema of lower extremity; Translations: [Edema] Episodic Residual codes; unclassified (11 sources) Other specified health status; Translations: [Failure of outpatient treatment] 07-25-2023 Episodic Residual codes; unclassified (20 sources) Edema; Translations: [Edema, unspecified] 02-21-2022 Episodic Residual codes; unclassified (4 sources) Edema, generalized; Translations: [Generalized edema] 06-11-2025 Episodic Residual codes; unclassified (1 source) Generalized edema; Translations: [Generalized edema] Onset: 5 Episodic Septicemia (except in labor) (20 sources) Sepsis-associated organ dysfunction; Translations: [Sepsis, unspecified organism] Onset: 1 Episodic Skin and subcutaneous tissue infections (20 sources) Cellulitis; Translations: [Cellulitis, unspecified] Onset: 3 07-08-2023 Episodic Spondylosis; intervertebral disc disorders; other back problems (2 sources) Backache; Translations: [Backache, unspecified] Episodic Unclassified (8 sources) Wound ; Translations: [Non-healing wound] 08-20-2021 Unclassified (20 sources) Transition into care - The patient is transitioning into care from a hospital and a summary of care was reviewed. 08-26-2023 Unclassified (20 sources) Follow up from hospital stay - Name of Hospital: [facility]. Date of Admission: 07/25/2023. Date [...] care was reviewed. 07-31-2023 Unclassified (20 sources) [ADDITIONAL REASON] Transition into care - The patient is transitioning into care from an emergency room and a summary of care was reviewed. 07-16-2023 Unclassified (20 sources) follow up cellulitis - [...] getting them on.Did see lymphedema clinic in [place]. 02-21-2022 Unclassified (20 sources) Follow up for [...] of breath has gotten worse.Has appt with plumber apprentice in early June.Scheduled appt with bariatric surgeon at [facility] on 06/27/21.Has chronic low back pain, hip pain, and knee pain - sees ortho in [place] for management of this; has received injections [...] still heavy - never scheduled appt with MANAGER ENGLISH.Had a colonoscopy a few years ago - [...] the surgery.Palms have been peeling. 03-14-2021 Unclassified (17 sources) [ADDITIONAL REASON] Follow up from hospital stay - Name of Hospital: [facility]. Date of Admission: 07/25/2023. Date [...] going from car to work. 06-09-2025 Unclassified (19 sources) Follow up for multiple chronic conditions [...] changes. Only lasts for 1-2 seconds. 06-09-2025 Unclassified (2 sources) Follow-up within 3-5 days to review admission. Unclassified (2 sources) Please follow-up and establish for BL LE lymphedema evaluation and ongoing treatment. Unclassified (7 sources) [ADDITIONAL REASON] Follow up from hospital stay - Name of Hospital: [facility]. Date of Admission: 06/11/2025. Date of Discharge: 06/11/2025. The patient was hospitalized for sepsis secondary to BLE cellulitis and lactic acidosis. New medications include levofloxacin 750mg 1 tab once daily x6 days . Consultations ordered while in the hospital include follow up with PCP. Patient was discharged to home. Current Symptoms: no symptoms. Note for Follow up from hospital stay: Weight at admission was 530.6 and at discharge was 493.6 lb. Since then she has gained several pounds daily despite taking lasix 40mg daily. Leg swelling has returned. No SOB. Was also referred to wound care. 06-23-2025 Unclassified (3 sources) Follow up from hospital stay - Name of Hospital: [facility]. Date of Admission: 06/11/2025. Date of Discharge: 06/11/2025. The patient was hospitalized for sepsis secondary to BLE cellulitis and lactic acidosis. New medications include levofloxacin 750mg 1 tab once daily x6 days . Consultations ordered while in the hospital include follow up with PCP. Patient was discharged to home. Current Symptoms: no symptoms. Note for Follow up from hospital stay: Weight at admission was 530.6 and at discharge was 493.6 lb. Since then she has gained several pounds daily despite taking lasix 40mg daily. Leg swelling has returned. No SOB. Was also referred to wound care. 06-23-2025 Urinary tract infections (11 sources) Cystitis; Translations: [Cystitis, unspecified without hematuria] 08-10-2021 Episodic Viral infection (20 sources) COVID-19; Translations: [Pneumonia due to other virus not elsewhere classified] Onset: Resolved: 1 Episodic Past or Other Problems [...] respiratory failure with hypoxia] Onset: 06-02-2021 Episodic Unclassified (20 sources) [ADDITIONAL REASON] Follow up from hospital stay - Name of Hospital: [facility]. Date of Admission: 08/18/2023. Date [...] from hospital stay - Name of Hospital: [facility]. Date of Admission: 07/08/2023. Date [...] elevate the leg. 07-16-2023 Unclassified (20 sources) Leg pain - [...] today.No fever.Did meet with bariatric surgery in [place] - has to get down to 420 /BMI 70 - prior to having the surgery. Working with dieticians. 02-06-2023 Unclassified (20 sources) form to fill out - Patient is here today to complete form for bariatric surgery - needs an OV within the past 30 days.Has symptoms of carpal tunnel - hands are falling asleep all the time. Decreased human insights lead ads marketing strength.Has cramping in legs and stomach.Acid reflux [...] s/p covid. 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 [...] back. Note for Consultation follow-up: Going to [place] wound clinic every week - has appt w them tomorrow.Was evaluated by OT/PT ([facility]) but hasn't found out if she would be eligible for services.Nurse is coming 3 times per week.Has f/u appt with Dr. Keys (p[facility]) 10/26 - is to have sleep study (had [...] heaving.Lots of nasal drainage - using flonase.Saw christiano Ying) who repeated ECHO but didn't feel cath was indicated. No f/u indicated.Weight is down 53 pounds since last OV.Had improvement in leg swelling until recently. Questioning if she could go to the lymphedema clinic.Has not been notified yet of counseling appt or the weight loss clinic. 08-12-2021 Unclassified (19 sources) [ADDITIONAL REASON] Follow up consultation - The patient is here to follow-up after hospitalization on : (pt went in June 02 to Aug 02 ; rehab jul 03- aug 02). Current symptoms include cough, dyspnea, weakness and bed sore on back. Note for Consultation follow-up: Going to [place] [facility] every week - has appt w them tomorrow.Was evaluated by OT/PT ([facility]) but hasn't found out if she would be eligible for services.Nurse is coming 3 times per week.Has f/u appt with Dr. Keys ([facility]) 09/24 - is to have sleep study [...] heaving.Lots of nasal drainage - using flonase.Saw christiano Ying) who repeated ECHO but didn't feel cath [...] summary of care was reviewed. 07-16-2023 Unclassified (16 sources) [ADDITIONAL REASON] Follow up from hospital stay - Name of Hospital: [facility]. Date of Admission: 07/08/2023. Date [...] from hospital stay - Name of Hospital: [facility]. Date of Admission: 08/18/2023. Date [...] from hospital stay - Name of Hospital: [facility]. Date of Admission: 04/04/24. The patient was hospitalized for cellulitis . New medications include ATB-cefdinir (Often forgets to take afternoon dose). Patient was discharged to home. Note for Follow up from hospital stay: Pt states healing, skin currently peeling. No f/u with infectious disease scheduled. 04-15-2024 Unclassified (10 sources) Follow up from hospital stay - Name of Hospital: [facility]. Date of Admission: 04/04/24. The patient was hospitalized for cellulitis . New medications include ATB-cefdinir (Often forgets to take afternoon dose). Patient was discharged to home. Note for Follow up from hospital stay: Pt states healing, skin currently peeling. No f/u with infectious disease scheduled. 04-15-2024 Unclassified (20 sources) Follow up from hospital stay - Name of Hospital: [facility]. Date of Admission: 05/04/2024. Date [...] probiotic when on last abx. 05-12-2024 Unclassified (20 sources) Follow up consultation - [...] to even have possible exposure. 06-13-2024 Unclassified (20 sources) [ADDITIONAL REASON] Transition into care - The patient is transitioning into care from another physician and a summary of care was reviewed. 06-13-2024 Unclassified (11 sources) [ADDITIONAL REASON] Follow up from hospital stay - Name of Hospital: [facility]. Date of Admission: 05/04/2024. Date [...] probiotic when on last abx. 05-12-2024 Unclassified (7 sources) Transition into care - The patient is transitioning into care from another physician and a summary of care was reviewed. 06-13-2024 Unclassified (7 sources) [ADDITIONAL REASON] Follow up consultation - [...] Test Name Value Interpretation Reference Range Facility Cardiology Visit Reporton Cardiology Visit Report [facility] [address] [place], [place] [address] OFFICE VISIT Date of Service: 08/01/25 MR#: [id number] Acct: [id number] Name: JESUSITA ENGLAND Rep #: [id number] : 1970 Provider: Dr. Khai licona MD Age/Sex: 55/F Location: [facility] Status: Signed HPI HPI History of Present Illness Details: Patient is a pleasant 55-year-old white female is referred here for evaluation of persistent lower extremity edema and diuretic therapy resulting in some elevated creatinine levels. The patient is here as a new patient she was remotely seen by Dr. Arthur Fountain. The patient has a history of morbid obesity she weighs 508 pounds today on our scales. She has a history of an abnormal echo with an EF measured in the 45 to 50% range with stage I diastolic dysfunction which is appropriate for age. She had mild left atrial enlargement. This is very similar to an echo which was done back in June 2021 when she had COVID. The patient was admitted June 11, 2025 at [facility] with bacteremia and anasarca. She has been diagnosed with lymphedema she does have lymph compression devices at home which she does not routinely use. The patient also has a history of hyperglycemia and hemoglobin A1c of 6.4 but she was denied GLP-1 inhibitors by insurance company. Patient also has a mild ascending aorta dilated at 4.4 cm. She has a history of irritable bowel syndrome. The patient reports that on the days she does not work and she is mainly at rest she has better urine output and her weight goes down on her Lasix 40 mg daily. 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 She did increase her Lasix to 40 mg in the morning 20 in the afternoon and her creatinine increased. She has now dropped back to 40 mg daily. In the hospital the patient had ultrasounds done that were negative for DVTs. The patient is previously been evaluated the [facility] for weight loss surgery. She was told that she could not have the surgical procedure until she lost to 100 pounds and she is just unable to accomplish that. Intake Vital Signs 06/11/25 12:29 08/01/25 10:59 Height 5 ft 3 in 5 ft 3 in Weight: 508 lb BMI 89.9 BP 131/81 H Blood Pressure Location Lt radial Position Sitting Respiration 20 H Pulse 75 Pulse Source Monitor Pulse Oximetry (%) 93 Oxygen Delivery Method room air Intake Visit Reasons: RE-EST/PREV PFM PT Principal Gifts Officer Required: No Is patient in pain?: No Allergies adhesive tape Adverse Reaction (Unknown, Verified 08/01/25 10:59) Other Medications ???Medication ???Instructions ???Recorded ???Confirmed ???Type acetaminophen 500 mg capsule 1,000 mg PO Q6H PRN Pain 07/11/21 08/01/25 History ferrous sulfate 325 mg (65 mg 325 mg PO DAILY@1200 iron #30 tabs 08/01/21 08/01/25 Rx iron) tablet (FeroSul) venlafaxine 75 mg capsule,extended 225 mg (3 x 75 mg) PO DAILY 04/1908/01/25 Rx release 24 hr (Effexor XR) depression #90 caps lisinopril 10 mg tablet 10 mg PO DAILY blood pressure 07/0108/01/25 History cholecalciferol (vitamin D3) 1 tab PO DAILY supplement 04/04/24 08/01/25 History valacyclovir 1 gram tablet 2,000 mg PO BID PRN cold sore 08/2308/01/25 History albuterol sulfate 2.5 mg/3 mL 2.5 mg continuous nebulization Q4H 06/11/25 08/01/25 History (0.083 %) solution for nebulization PRN PRN dyspnea buspirone 5 mg tablet 5 mg PO BID mood 06/11/25 08/01/25 History calcium carbonate (Ally-Cornell 600 mg PO TID PRN dyspepsia 08/01/25 History Heartburn Chew) cholestyramine (with sugar) 4 gram 2 - 4 ea PO DAILY supp 06/11/25 08/01/25 History oral powder multivitamin (Daily Multi-Vitamin 1 tab PO DAILY supp 06/11/2501/24 History tablet) pantoprazole 20 mg tablet,delayed 20 mg PO DAILY stomach 06/11/25 0 08/01/25 History release furosemide 40 mg tablet (Lasix) 40 mg PO DAILY 07/21/25 08/01/25 H istory loperamide 2 mg capsule 2 mg PO Q4H PRN 07/21/25 08/01/25 History (Anti-Diarrheal (loperamide)) L.acidophil,salivari-Bif karolina 1 cap PO BID PRN supplement History bifidum-Strep thermoph 175 mg capsule Ejection fraction %: 42 Have you fallen in the past year?: No PFSH Medical History Morbid obesity PLMD (periodic limb movement disorder) Lymphedema associated with obesity Hyperglycemia Failure of outpatient treatment Ascending aorta dilatation Abnormal echocardiogram IBS (irritable bowel syndrome) Depression Heel spur Osteoarthritis (arthritis due to wear and tear of joints (more content not included)... Normal [facility] BMP FASTINGon 06-29-2025 Anion gap [Moles/Vol] 10 mmol/L Normal [facility] Comment on above: Performed By: #### F X, BMPF #### Testing performed at [address] [address] Calcium [Mass/Vol] 9.5 mg/dL Normal 8.4 - 10. 6 mg/dL [facility] Comment on above: Performed By: #### F X, BMPF #### Testing performed at [address] [address] Chloride [Moles/Vol] 102 mmol/L Normal 98 - 11 0 mmol/L [facility] Comment on above: Result Comment: Plea note: Triglyceride levels of 600mg/dL or higher may positively bias chloride results by approximately 2.1 mmol Performed By: #### F X, BMPF #### Testing performed at [address] [address] CO2 [Moles/Vol] 25 mmol/L Normal 22-30 [facility] Comment on above: Performed By: #### F X, BMPF #### Testing performed at [address] [address] Creatinine [Mass/Vol] 0.96 mg/dL Normal 0.5 - 1.2 mg/dL [facility]. Comment on above: Performed By: #### F X, BMPF #### Testing performed at [address] [address] GFR Information Average GFR for 50-5 9 years old = 93. Normal [facility] Comment on above: Result Comment: Pastry Wrapper randi Kidney disease, GFR = <60. Kidney failure, GFR = <15. The GFR estimate is not adjusted for extreme body surface area or acute process, nor has it been validated for women or ethnic groups other than and . MDRD Equation Performed By: #### F X, BMPF #### Testing performed at [address] [address] GFR/1.73 sq M.predicted MDRD (S/P/Bld) [Vol rate/Area] 64 mL/min/{1.73_m2} Normal [facility] Comment on above: Performed By: #### F X, BMPF #### Testing performed at [address] [address] Glucose [Mass/Vol] 95 mg/dL Normal 60 - 100 mg/dL [facility] Comment on above: Result Comment: NORMAL <100 mg/dL PREDIABETES 101-126 mg/dL DIABETES 126 mg/dL or higher Performed By: #### F X, BMPF #### Testing performed at [address] [address] Potassium [Moles/Vol] 4.4 mmol/L Normal 3.5 - 5.0 mmol/L [facility]. Comment on above: Performed By: #### F X, BMPF #### Testing performed at [address] [address] Sodium [Moles/Vol] 137 mmol/L Normal 136 - 145 mmol/L [facility]. Comment on above: Performed By: #### F X, BMPF #### Testing performed at [address] [address] Urea nitrogen [Mass/Vol] 24 mg/dL Abnormal 8 - 22 mg/dL [facility]; [facility] Comment on above: Performed By: #### F X, BMPF #### Testing performed at [address] [address] FAX REQUESTon 06-29-2025 FAX TO FAX TO DR ALONDRA ZABALA [facility] [phone] Normal [facility] Comment on above: Performed By: #### F X, BMPF #### Testing performed at [address] [address] Laboratory - Chemistry and C hemistry - challengeon 06-29-2025 CO2 [Moles/Vol] 25 {kenya/L} Normal 22.0 - 32.0 {kenya/L} [facility]. Urea nitrogen/Creatinine [Mass ratio] - Normal 0 - [address] [facility] No Panel Informationon 06-29 ELECTROLYTE BALANCE - Normal [facility].; [facility] GFR [address] [facility]. GFR2 - Normal [facility]. BASIC METABOLIC PANELon 05-31 Calcium [Mass/Vol] 9.4 mg/dL Normal 8.6-10.4 [facility] Comment on above: Performed By: #### 1 0165 #### [facility] [address], [address] [place] [address] Proofing Machine Operator: Lc Masters MD Chloride [Moles/Vol] 101 mmol/L Normal 98-110 [facility] Comment on above: Performed By: #### 1 0165 #### [facility] [place] [address] Proofing Machine Operator: Lc Masters MD CO2 [Moles/Vol] 26 mmol/L Normal 20-32 [facility] Comment on above: Performed By: #### 1 0165 #### [facility] [place] [address] Proofing Machine Operator: Lc Masters MD Creatinine [Mass/Vol] 1.07 mg/dL High 0.50-1.[address] [facility] Comment on above: Performed By: #### 1 0165 #### [facility] [place] [address] Proofing Machine Operator: Lc Masters MD GFR/1.73 sq M.predicted among non-blacks MDRD (S/P/Bld) [Vol rate/Area] 61 mL/min/{1.73_m2} Normal > OR = 60 [facility] Comment on above: Performed By: #### 1 0165 #### [facility] [place] [address] Proofing Machine Operator: Lc Masters MD Glucose [Mass/Vol] 135 mg/dL High 65-99 [facility] Comment on above: Result Comment: Fasting reference interval For someone without known diabetes, a glucose value >125 mg/dL indicates that they may have diabetes and this should be confirmed with a follow-up test. Performed By: #### 1 0165 #### [facility] [place] [address] Proofing Machine Operator: Lc Masters MD Potassium [Moles/Vol] 5.1 mmol/L Normal 3.5-5.[address] [facility] Comment on above: Performed By: #### 1 0165 #### [facility] [address], [address] [place] [address] Proofing Machine Operator: Lc Masters MD Sodium [Moles/Vol] 136 mmol/L Normal 135-146 [facility] Comment on above: Performed By: #### 1 0165 #### [facility] [place] [address] Proofing Machine Operator: Lc Masters MD Urea nitrogen [Mass/Vol] 49 mg/dL High - [facility] Comment on above: Performed By: #### 1 0165 #### [facility] [place] [address] Proofing Machine Operator: Lc Masters MD Urea nitrogen/Creatinine [Mass ratio] 46 mg/mg High 6- [facility] Comment on above: Performed By: #### 1 0165 #### [facility] [place] [address] Proofing Machine Operator: Lc Masters MD Laboratory - Chemistry and C hemistry - challengeon 06-23-2025 Calcium [Mass/Vol] 9.4 mg/dL Normal 8.6 - 10. 4 mg/dL [facility] Chloride [Moles/Vol] 101 mmol/L Normal 98 - 11 0 mmol/L [facility] CO2 [Moles/Vol] 26 mmol/L Normal 20 - 32 mmol/L [facility] Creatinine [Mass/Vol] 1.07 mg/dL Abnormal 0.50 - 1.03 mg/dL [facility] [place] [employer] [facility]. GFR/1.73 sq M.predicted among non-blacks MDRD (S/P/Bld) [Vol rate/Area] 61 mL/min/{1.73_m2} Normal [facility] Glucose [Mass/Vol] 135 mg/dL Abnormal 65 - 99 mg/dL [facility].; [place] [facility] [facility] Potassium [Moles/Vol] 5.1 mmol/L Normal 3.5 - 5.3 mmol/L [facility] Sodium [Moles/Vol] 136 mmol/L Normal 135 - 146 mmol/L [facility] [place] [facility] Urea nitrogen [Mass/Vol] 49 mg/dL Abnormal 7 - 25 mg/dL [facility] [place] [employer] Urea nitrogen/Creatinine [Mass ratio] 46 mg/mg Abnormal 6 - 22 [facility]; [place] [facility] Laboratory - Hematology and Cell countson 06-23-2025 HbA1c (Bld) [Mass fraction] 6.4 % Normal 4.6 - 7.1 % [facility]; [place] [employer]. CBC W/Diff, Automatedon 05-31 Absolute Neut Normal 2.0-7.7 [facility] Comment on above: Result Comment: Canc elled via OM: Order cancelled - Patient discharged Performed By: #### L 400.0001, #### [facility] [address] [place], [place], [address] HCT Normal 37-47 [facility] Comment on above: Result Comment: Canc elled via OM: Order cancelled - Patient discharged Performed By: #### L 400.0001, #### [facility] [address] [place], [address] HGB Normal 12.0-15.0 [facility] Comment on above: Result Comment: Canc elled via OM: Order cancelled - Patient discharged Performed By: #### L 400.0001, M100.2200 #### [facility] [address] [place], [address] MCH Normal 27.0-32.0 [facility] Comment on above: Result Comment: Canc elled via OM: Order cancelled - Patient discharged Performed By: #### L 400.0001, M100.2200 #### [facility] [address] [place], [address] MCHC Normal 32-36 [facility] Comment on above: Result Comment: Canc elled via OM: Order cancelled - Patient discharged Performed By: #### L 400.0001, M100.2200 #### [facility] [address] [place], [address] MCV Normal 81-99 [facility] Comment on above: Result Comment: Canc elled via OM: Order cancelled - Patient discharged Performed By: #### L 400.0001, M100.2200 #### [facility] [address] [place], [address] NEUT% Normal 47-70 [facility] Comment on above: Result Comment: Canc elled via OM: Order cancelled - Patient discharged Performed By: #### L 400.0001, M100.2200 #### [facility] [address] [place], [address] PLT Normal 150-450 [facility] Comment on above: Result Comment: Canc elled via OM: Order cancelled - Patient discharged Performed By: #### L 400.0001, M100.2200 #### [facility] [address] [place], [address] RBC Normal 4.2-5.4 [facility] Comment on above: Result Comment: Canc elled via OM: Order cancelled - Patient discharged Performed By: #### L 400.0001, M100.2200 #### [facility] [address] [place], [address] RDW CV Normal 11.6-14.6 [facility] Comment on above: Result Comment: Canc elled via OM: Order cancelled - Patient discharged Performed By: #### L 400.0001, M100.2200 #### [facility] [address] [place], [address] RDW SD Normal 35.1-43.9 [facility] Comment on above: Result Comment: Canc elled via OM: Order cancelled - Patient discharged Performed By: #### L 400.0001, M100.2200 #### [facility] [address] [place], [address] WBC Normal 4.4-11.0 [facility] Comment on above: Result Comment: Canc elled via OM: Order cancelled - Patient discharged Performed By: #### L 400.0001, M100.2200 #### [facility] [address] [place], [address] Comprehensive Metabolic Prof ilon 06-19-2025 ALB Normal 3.5-5.0 [facility] Comment on above: Result Comment: Canc elled via OM: Order cancelled - Patient discharged Performed By: #### L 400.0001, M100.2200 #### [facility] [address] [place], [address] ALK PHOS Normal 35-104 [facility] Comment on above: Result Comment: Canc elled via OM: Order cancelled - Patient discharged Performed By: #### L 400.0001, M100.2200 #### [facility] [address] [place], [address] ALT Normal <=34 [facility] Comment on above: Result Comment: Canc elled via OM: Order cancelled - Patient discharged Performed By: #### L 400.0001, M100.2200 #### [facility] [address] [place], [address] AST Normal <=31 [facility] Comment on above: Result Comment: Canc elled via OM: Order cancelled - Patient discharged Performed By: #### L 400.0001, .2199 #### [facility] [address] [place], [address] BUN Normal 4-19 [facility] Comment on above: Result Comment: Canc elled via OM: Order cancelled - Patient discharged Performed By: #### L 400.0001, .2199 #### [facility] [address] [place], [address] BUN/CRE Normal 10-20 [facility] Comment on above: Result Comment: Canc elled via OM: Order cancelled - Patient discharged Performed By: #### L 400.0001, #### [facility] [address] [place], [address] Calcium Normal 7.6-11.0 [facility] Comment on above: Result Comment: Canc elled via OM: Order cancelled - Patient discharged Performed By: #### L 400.0001, #### [facility] [address] [place], [address] CL Normal 98-108 [facility] Comment on above: Result Comment: Canc elled via OM: Order cancelled - Patient discharged Performed By: #### L 400.0001, .2199 #### [facility] [address] [place], [address] CO2 Normal 21.0-32.0 [facility] Comment on above: Result Comment: Canc elled via OM: Order cancelled - Patient discharged Performed By: #### L 400.0001, #### [facility] [address] [place], [address] CREAT,SERUM Normal 0.70-1.20 [facility] Comment on above: Result Comment: Canc elled via OM: Order cancelled - Patient discharged Performed By: #### L 400.0001, M100.0 #### [facility] [address] [place], [address] eGFR Normal >60 [facility] Comment on above: Result Comment: Canc elled via OM: Order cancelled - Patient discharged Performed By: #### L 400.0001, .2199 #### [facility] [address] [place], [address] GAP Normal 5-15 [facility] Comment on above: Result Comment: Canc elled via OM: Order cancelled - Patient discharged Performed By: #### L 400.0001, M1.0 #### [facility] [address] [place], [address] GLU Normal 70-99 [facility] Comment on above: Result Comment: Canc elled via OM: Order cancelled - Patient discharged Performed By: #### L 400.0001, .0 #### [facility] [address] [place], [address] Potassium Normal 3.3-5.1 [facility] Comment on above: Result Comment: Canc elled via OM: Order cancelled - Patient discharged Performed By: #### L 400.0001, .2199 #### [facility] [address] [place], [address] T BILI Normal 0.00-1.30 [facility] Comment on above: Result Comment: Canc elled via OM: Order cancelled - Patient discharged Performed By: #### L 400.0001, M100.0 #### [facility] [address] [place], [address] T PROT Normal 5.9-8.4 [facility] Comment on above: Result Comment: Canc elled via OM: Order cancelled - Patient discharged Performed By: #### L 400.0001, M100.2200 #### [facility] [address] [place], [address] Comprehensive Metabolic Profil Normal 133-145 [facility] Comment on above: Result Comment: Canc elled via OM: Order cancelled - Patient discharged Performed By: #### L 400.0001, M100.2200 #### [facility] [address] [place], [address] CBC W/Diff, Automatedon 07-2 0-2024 Absolute Neut Normal 2.0-7.7 [facility] Comment on above: Result Comment: Canc elled via OM: Order cancelled - Patient discharged Performed By: #### L 501.4021 #### [facility] [address] [place], [address] HCT Normal 37-47 [facility] Comment on above: Result Comment: Canc elled via OM: Order cancelled - Patient discharged Performed By: #### L 501.4021 #### [facility] [address] [place], [address] HGB Normal 12.0-15.0 [facility] Comment on above: Result Comment: Canc elled via OM: Order cancelled - Patient discharged Performed By: #### L 501.4021 #### [facility] [address] [place], [address] MCH Normal 27.0-32.0 [facility] Comment on above: Result Comment: Canc elled via OM: Order cancelled - Patient discharged Performed By: #### L 501.4021 #### [facility] [address] [place], [address] MCHC Normal 32-36 [facility] Comment on above: Result Comment: Canc elled via OM: Order cancelled - Patient discharged Performed By: #### L 501.4021 #### [facility] [address] [place], [address] MCV Normal 81-99 [facility] Comment on above: Result Comment: Canc elled via OM: Order cancelled - Patient discharged Performed By: #### L 501.4021 #### [facility] [address] [place], [address] NEUT% Normal 47-70 [facility] Comment on above: Result Comment: Canc elled via OM: Order cancelled - Patient discharged Performed By: #### L 501.4021 #### [facility] [address] [place], [address] PLT Normal 150-450 [facility] Comment on above: Result Comment: Canc elled via OM: Order cancelled - Patient discharged Performed By: #### L 501.4021 #### [facility] [address] [place], [address] RBC Normal 4.2-5.4 [facility] Comment on above: Result Comment: Canc elled via OM: Order cancelled - Patient discharged Performed By: #### L 501.4021 #### [facility] [address] [place], [address] RDW CV Normal 11.6-14.6 [facility] Comment on above: Result Comment: Canc elled via OM: Order cancelled - Patient discharged Performed By: #### L 501.4021 #### [facility] [address] [place], [address] RDW SD Normal 35.1-43.9 [facility] Comment on above: Result Comment: Canc elled via OM: Order cancelled - Patient discharged Performed By: #### L 501.4021 #### [facility] [address] [place], [address] WBC Normal 4.4-11.0 [facility] Comment on above: Result Comment: Canc elled via OM: Order cancelled - Patient discharged Performed By: #### L 501.4021 #### [facility] [address] [place], [address] Comprehensive Metabolic Prof ilon 06-18-2025 ALB Normal 3.5-5.0 [facility] Comment on above: Result Comment: Canc elled via OM: Order cancelled - Patient discharged Performed By: #### L 100.0100, [id number] #### [facility] [address] [place], [address] ALK PHOS Normal 35-104 [facility] Comment on above: Result Comment: Canc elled via OM: Order cancelled - Patient discharged Performed By: #### L 100.0100, [id number] #### [facility] [address] [place], [address] ALT Normal <=34 [facility] Comment on above: Result Comment: Canc elled via OM: Order cancelled - Patient discharged Performed By: #### L 100.0100, [id number] #### [facility] [address] [place], [address] AST Normal <=31 [facility] Comment on above: Result Comment: Canc elled via OM: Order cancelled - Patient discharged Performed By: #### L 100.0100, [id number] #### [facility] [address] [place], [address] BUN Normal 4-19 [facility] Comment on above: Result Comment: Canc elled via OM: Order cancelled - Patient discharged Performed By: #### L 100.0100, [id number] #### [facility] [address] [place], [address] Result Comment: Canc elled via OM: MD Ordered Performed By: #### L [id number] #### [facility] [address] [place], [address] BUN/CRE Normal 10-20 [facility] Comment on above: Result Comment: Canc elled via OM: Order cancelled - Patient discharged Performed By: #### L 100.0100, [id number] #### [facility] [address] [place], [address] Result Comment: Canc elled via OM: MD Ordered Performed By: #### L [id number] #### [facility] [address] [place], [address] Calcium Normal 7.6-11.0 [facility] Comment on above: Result Comment: Canc elled via OM: Order cancelled - Patient discharged Performed By: #### L 100.0100, [id number] #### [facility] [address] [place], [address] Result Comment: Canc elled via OM: MD Ordered Performed By: #### L 501.4021 #### [facility] [address] [place], [address] CL Normal 98-108 [facility] Comment on above: Result Comment: Canc elled via OM: Order cancelled - Patient discharged Performed By: #### L 100.0100, [id number] #### [facility] [address] [place], [address] Result Comment: Canc elled via OM: MD Ordered Performed By: #### L 501.4021 #### [facility] [address] [place], [address] CO2 Normal 21.0-32.0 [facility] Comment on above: Result Comment: Canc elled via OM: Order cancelled - Patient discharged Performed By: #### L 100.0100, [id number] #### [facility] [address] [place], [address] Result Comment: Canc elled via OM: MD Ordered Performed By: #### L 501.4021 #### [facility] [address] [place], [address] CREAT,SERUM Normal 0.70-1.20 [facility] Comment on above: Result Comment: Canc elled via OM: Order cancelled - Patient discharged Performed By: #### L 100.0100, [id number] #### [facility] [address] [place], [address] Result Comment: Canc elled via OM: MD Ordered Performed By: #### L 501.4021 #### [facility] [address] [place], [address] eGFR Normal >60 [facility] Comment on above: Result Comment: Canc elled via OM: Order cancelled - Patient discharged Performed By: #### L 100.0100, [id number] #### [facility] [address] [place], [address] Result Comment: Canc elled via OM: MD Ordered Performed By: #### L 501.4021 #### [facility] [address] [place], [address] GAP Normal 5-15 [facility] Comment on above: Result Comment: Canc elled via OM: Order cancelled - Patient discharged Performed By: #### L 100.0100, [id number] #### [facility] [address] [place], [address] Result Comment: Canc elled via OM: MD Ordered Performed By: #### L [id number] #### [facility] [address] [place], [address] GLU Normal 70-99 [facility] Comment on above: Result Comment: Canc elled via OM: Order cancelled - Patient discharged Performed By: #### L 100.0100, [id number] #### [facility] [address] [place], [address] Result Comment: Canc elled via OM: MD Ordered Performed By: #### L 501.4021 #### [facility] [address] [place], [address] Potassium Normal 3.3-5.1 [facility] Comment on above: Result Comment: Canc elled via OM: Order cancelled - Patient discharged Performed By: #### L 100.0100, [id number] #### [facility] [address] [place], [address] Result Comment: Canc elled via OM: MD Ordered Performed By: #### L [id number] #### [facility] [address] [place], [address] T BILI Normal 0.00-1.30 [facility] Comment on above: Result Comment: Canc elled via OM: Order cancelled - Patient discharged Performed By: #### L 100.0100, [id number] #### [facility] [address] [place], [address] T PROT Normal 5.9-8.4 [facility] Comment on above: Result Comment: Canc elled via OM: Order cancelled - Patient discharged Performed By: #### L 100.0100, [id number] #### [facility] [address] [place], [address] Comprehensive Metabolic Profil Normal 133-145 [facility] Comment on above: Result Comment: Canc elled via OM: Order cancelled - Patient discharged Performed By: #### L 100.0100, [id number] #### [facility] [address] [place], [address] Result Comment: Canc elled via OM: MD Ordered Performed By: #### L 501.4021 #### [facility] [address] [place], [address] CBC W/Diff, Automatedon 07-1 Absolute Neut Normal 2.0-7.7 [facility] Comment on above: Result Comment: Canc elled via OM: Order cancelled - Patient discharged Performed By: #### L 501.4021 #### [facility] [address] [place], [address] HCT Normal 37-47 [facility] Comment on above: Result Comment: Canc elled via OM: Order cancelled - Patient discharged Performed By: #### L 501.4021 #### [facility] [address] [place], [address] HGB Normal 12.0-15.0 [facility] Comment on above: Result Comment: Canc elled via OM: Order cancelled - Patient discharged Performed By: #### L 501.4021 #### [facility] [address] [place], [address] MCH Normal 27.0-32.0 [facility] Comment on above: Result Comment: Canc elled via OM: Order cancelled - Patient discharged Performed By: #### L 501.4021 #### [facility] [address] [place], [address] MCHC Normal 32-36 [facility] Comment on above: Result Comment: Canc elled via OM: Order cancelled - Patient discharged Performed By: #### L 501.4021 #### [facility] [address] [place], [address] MCV Normal 81-99 [facility] Comment on above: Result Comment: Canc elled via OM: Order cancelled - Patient discharged Performed By: #### L 501.4021 #### [facility] [address] [place], [address] NEUT% Normal 47-70 [facility] Comment on above: Result Comment: Canc elled via OM: Order cancelled - Patient discharged Performed By: #### L 501.4021 #### [facility] [address] [place], [address] PLT Normal 150-450 [facility] Comment on above: Result Comment: Canc elled via OM: Order cancelled - Patient discharged Performed By: #### L 501.4021 #### [facility] [address] [place], [address] RBC Normal 4.2-5.4 [facility] Comment on above: Result Comment: Canc elled via OM: Order cancelled - Patient discharged Performed By: #### L 501.4021 #### [facility] [address] [place], [address] RDW CV Normal 11.6-14.6 [facility] Comment on above: Result Comment: Canc elled via OM: Order cancelled - Patient discharged Performed By: #### L 501.4021 #### [facility] [address] [place], [address] RDW SD Normal 35.1-43.9 [facility] Comment on above: Result Comment: Canc elled via OM: Order cancelled - Patient discharged Performed By: #### L 501.4021 #### [facility] [address] [place], [address] WBC Normal 4.4-11.0 [facility] Comment on above: Result Comment: Canc elled via OM: Order cancelled - Patient discharged Performed By: #### L 501.4021 #### [facility] [address] [place], [address] Comprehensive Metabolic Prof ilon 06-17-2025 ALB Normal 3.5-5.0 [facility] Comment on above: Result Comment: Canc elled via OM: Order cancelled - Patient discharged Performed By: #### L 501.4021 #### [facility] [address] [place], [address] ALK PHOS Normal 35-104 [facility] Comment on above: Result Comment: Canc elled via OM: Order cancelled - Patient discharged Performed By: #### L 501.4021 #### [facility] [address] [place], [address] ALT Normal <=34 [facility] Comment on above: Result Comment: Canc elled via OM: Order cancelled - Patient discharged Performed By: #### L 501.4021 #### [facility] [address] [place], [address] AST Normal <=31 [facility] Comment on above: Result Comment: Canc elled via OM: Order cancelled - Patient discharged Performed By: #### L 501.4021 #### [facility] [address] [place], [address] BUN Normal 4-19 [facility] Comment on above: Result Comment: Canc elled via OM: Order cancelled - Patient discharged Performed By: #### L 501.4021 #### [facility] [address] [place], [address] Result Comment: Canc elled via OM: MD Ordered BUN/CRE Normal 10-20 [facility] Comment on above: Result Comment: Canc elled via OM: Order cancelled - Patient discharged Performed By: #### L 501.4021 #### [facility] [address] [place], [address] Result Comment: Canc elled via OM: Ordered Calcium Normal 7.6-11.0 [facility] Comment on above: Result Comment: Canc elled via OM: Order cancelled - Patient discharged Performed By: #### L 501.4021 #### [facility] [address] [place], [address] Result Comment: Canc elled via OM: Ordered CL Normal 98-108 [facility] Comment on above: Result Comment: Canc elled via OM: Order cancelled - Patient discharged Performed By: #### L 501.4021 #### [facility] [address] [place], [address] Result Comment: Canc elled via OM: MD Ordered CO2 Normal 21.0-32.0 [facility] Comment on above: Result Comment: Canc elled via OM: Order cancelled - Patient discharged Performed By: #### L 501.4021 #### [facility] [address] [place], [address] Result Comment: Canc elled via OM: MD Ordered CREAT,SERUM Normal 0.70-1.20 [facility] Comment on above: Result Comment: Canc elled via OM: Order cancelled - Patient discharged Performed By: #### L 501.4021 #### [facility] [address] [place], [address] Result Comment: Canc elled via OM: MD Ordered eGFR Normal >60 [facility] Comment on above: Result Comment: Canc elled via OM: Order cancelled - Patient discharged Performed By: #### L 501.4021 #### [facility] [address] [place], [address] Result Comment: Canc elled via OM: MD Ordered GAP Normal 5-15 [facility] Comment on above: Result Comment: Canc elled via OM: Order cancelled - Patient discharged Performed By: #### L 501.4021 #### [facility] [address] [place], [address] Result Comment: Canc elled via OM: MD Ordered GLU Normal 70-99 [facility] Comment on above: Result Comment: Canc elled via OM: Order cancelled - Patient discharged Performed By: #### L 501.4021 #### [facility] [address] [place], [address] Result Comment: Canc elled via OM: MD Ordered Potassium Normal 3.3-5.1 [facility] Comment on above: Result Comment: Canc elled via OM: Order cancelled - Patient discharged Performed By: #### L 501.4021 #### [facility] [address] [place], [address] Result Comment: Canc elled via OM: MD Ordered T BILI Normal 0.00-1.30 [facility] Comment on above: Result Comment: Canc elled via OM: Order cancelled - Patient discharged Performed By: #### L 501.4021 #### [facility] [address] [place], [address] T PROT Normal 5.9-8.4 [facility] Comment on above: Result Comment: Canc elled via OM: Order cancelled - Patient discharged Performed By: #### L 501.4021 #### [facility] [address] [place], [address] Comprehensive Metabolic Profil Normal 133-145 [facility] Comment on above: Result Comment: Canc elled via OM: Order cancelled - Patient discharged Performed By: #### L 501.4021 #### [facility] [address] [place], [address] Result Comment: Canc elled via OM: Ordered Anion gap in Serum or Plasma Ordered By: Antoni Abdul on 06-16-2025 Anion gap [Moles/Vol] 15 mmol/L 04-13 [facility] BUN/creatinine ratioOrdered By: Antoni Abdul on 06-16-2025 Urea nitrogen/Creatinine [Mass ratio] 28.9 mg/mg High 09-18 [facility] Basic Metabolic Profile (BMP )on 06-16-2025 BUN/CRE 28.9 RATIO High 09-18 [facility] Comment on above: Performed By: #### L 500.2500 #### [facility] [address] [place], [address] Calcium [Mass/Vol] 9.3 mg/dL Normal 7.6-11.0 [facility] Comment on above: Performed By: #### L 500.2500 #### [facility] [address] [place], [address] Chloride [Moles/Vol] 94 mmol/L Low 98-108 [facility] Comment on above: Performed By: #### L 500.2500 #### [facility] [address] [place], [address] CO2 [Moles/Vol] 27.4 mmol/L Normal 21.0-32.0 [facility] Comment on above: Performed By: #### L 500.2500 #### [facility] [address] [place], [address] Creatinine [Mass/Vol] 0.97 mg/dL Normal 0.70-1.20 [facility] Comment on above: Performed By: #### L 500.2500 #### [facility] [address] [place], [address] ECRCL 122.19 ml/min Normal 50-250 [facility] Comment on above: Performed By: #### L 500.2500 #### [facility] [address] [place], [address] GAP 15 Normal 5-15 [facility] Comment on above: Performed By: #### L 500.2500 #### [facility] [address] [place], [address] GFR/1.73 sq M.predicted among non-blacks MDRD (S/P/Bld) [Vol rate/Area] 68 mL/min/{1.73_m2} Normal >60 [facility] Comment on above: Result Comment: mL/m in/1.73m2 CKD-EPI Creatinine Equation (2020) Performed By: #### L 500.2500 #### [facility] [address] [place], [address] Glucose [Mass/Vol] 131 mg/dL High 70-99 [facility] Comment on above: Performed By: #### L 500.2500 #### [facility] [address] [place], [address] Potassium [Moles/Vol] 3.7 mmol/L Normal 3.3-5.1 [facility] Comment on above: Performed By: #### L 500.2500 #### [facility] [address] [place], [address] Sodium [Moles/Vol] 136 mmol/L Normal 133-145 [facility] Comment on above: Performed By: #### L 500.2500 #### [facility] [address] [place], [address] Urea nitrogen [Mass/Vol] 28 mg/dL High 4-19 [facility] Comment on above: Performed By: #### L 500.2500 #### [facility] [address] [place], [address] Carbon dioxide, total [Moles /volume] in Central venous bloodOrdered By: Antoni Abdul on 06-16-2025 CO2 [Moles/Vol] 27.4 mmol/L 21.0-32.0 [facility] Chloride assayOrdered By: Brenda Abdul on 06-16-2025 Chloride [Moles/Vol] 94 mmol/L Low 98-108 [facility] Culture, Blood (WB)on 2024 CUB Blood cultures x2, f rom two different sites No growth in 5 days. Normal [facility] Comment on above: Performed By: #### L 400.0001, M100.2200 #### [facility] [address] [place], [address] Discharge Instructionon 05-30 Discharge Instruction [facility] Medical Records Department [address] [place] [address] Instructions for Home/Discharge Instructions 06/16/25 1006 MR#: [id number] Acct: [id number] Name: JESUSITA ENGLAND Rep #: [id number] : 1970 55 From: Brittani Looney MD PCP: VJ Maloney Status:ADM IN Discharge Instructions DC O2, CPAP, BIPAP needs Home O2 Discharge instructions: No Dressing / Incision Discharge Activity: - (Encourage routine activity in the home. Avoid prolonged heat exposure. ) May resume sexual activity in: 10-14 days Weight Bearing Status: Weight bearing as tolerated Dressing / Incision Call your doctor if you observe: Fever of 101 or Higher, Shortness of breath, Dizziness, Swelling in the ankles, Chest pain, Increased palpitations (irregular heartbeat), Calf discomfort and Uncontrolled pain Follow Up Care Test Results: Test results from this visit will be discussed in further detail at your follow-up appointment, if applicable. Discharge Plan Admission Admit Date/Time: 06/11/25 02:49 Primary Reason for Your Visit: Lower extremity cellulitis, Bacteremia (blood stream infection). Attending Provider: Britatni Looney Primary Care Provider: Alondra Rosenberg Consulting Providers: Mauri Sampson; Antoni Abdul Instructions Patient Instructions: Understanding Lymphedema, Cellulitis Dc, ED Bacteremia, Suspected (Adult) Additional Instructions / Restrictions: ADDITIONAL DISCHARGE INSTRUCTIONS/PLAN OF CARE: During the admission you were treated for bilateral lower extremity skin infection associated with significant swelling known as anasarca with antibiotic therapies initially IV eventually transitioned on your discharge to oral Levaquin with a stop date of 06/22/2025 in addition to IV Lasix utilized and IV drip form in addition with notable weight loss and improvement of lower extremity swelling. We have started you on oral Lasix at discharge but please continue to monitor blood pressure and if your systolic blood pressure is < 110 please hold. We would also like you to have a repeat basic metabolic panel at follow-up with your primary care physician to make sure your labs are appropriate given this new medication. During the admission you also had noted growth of Pseudomonas however it was only on 1 of 2 blood cultures and this is sensitive to Levaquin to which you have also been discharged on which will treat both skin infection and this potential bloodstream infection. We strongly encourage that you elevate bilateral lower extremities above your heart when seated and in bed. We also strongly recommend continued efforts for weight loss and lifestyle changes. It would be beneficial to maintain bilateral lower extremity snug promise wraps starting at the toes to at least just below the knees, overlapping, no skin showing. It is vital that there be no skin showing to assist with keeping the fluid out of her lower extremities. It is important that there be no areas where the wrap is stuck in folds as fluid will primarily collect in those regions then. Outpatient your primary care physician can work to assist with possible compression stockings that need to be fitted. We have also placed a referral to the wound care center as they may assist in chronic lymphedema evaluation and treatment. Discharge Orders/Prescriptions Prescriptions: New furosemide [Lasix] 40 mg tablet 40 mg PO DAILY 30 Days Qty: 30 0RF Rx Instructions: Hold for SBP < 110 levofloxacin 750 mg tablet 750 mg PO DAILY 6 Days Qty: 6 0RF Continued acetaminophen 500 mg capsule 1,000 mg PO Q6H PRN (Reason: Pain) ferrous sulfate [FeroSul] 325 mg (65 mg iron) Tablet 325 mg PO DAILY@1200 Qty: 30 0RF venlafaxine [Effexor XR] 75 mg capsule,extended release 24hr 225 mg PO DAILY Qty: 90 0RF Rx Instructions: take 3 capsules every AM lisinopril 10 mg tablet 10 mg PO DAILY nystatin [Nyamyc] 100,000 unit/gram Powder 1 applic topical BID 30 Days Qty: 60 0RF Protocol: *Topical Application Instructions APPLICATION INSTRUCTIONS: apply to skin folds, particularly BLE Patient Comments: pt. reports not taking it cholecalciferol (vitamin D3) 1 tab PO DAILY Patient Comments: PT UNAWARE OF DOSAGE valacyclovir 1 gram tablet 2,000 mg PO BID PRN (Reason: cold sore) Patient Comments: x1 day L.acidoph,saliva-B.bif-S .therm 175 mg Capsule 1 cap PO BID 10 Days Qty: 20 0RF Ally-Cornell Heartburn Chew 300 mg (750 mg) tablet,chewable 600 mg PO TID PRN (Reason: dyspepsia) pantoprazole 20 mg tablet,delayed release (DR/EC) 20 mg PO DAILY cholestyramine (with sugar) 4 gram powder 2 - 4 ea PO DAILY multivitamin [Daily Multi-Vitamin] Tablet 1 tab PO DAILY [id number]-I8-B7-B12 -vit C 1 tab PO DAILY buspirone 5 mg tablet 5 mg PO BID albuterol sulfate 2.5 mg /3 mL (0.083 %) solution for nebulization 2.5 mg continuous nebul (more content not included)... Normal [facility] Echo Complete W/ Contraston 06-16-2025 Echo Complete W/ Contrast [facility] [address] [place] [address] Echo Complete W/ Contrast 06/15/25 2352 MR#: [id number] Acct: [id number] Name: JESUSITA ENGLAND Rep #: [id number] : 1970 55 From: Ihsan Izaguirre MD Attending Dr: Dr. Brittani Looney MD Status: AD M IN Ordering Dr: Brittani Looney MD Date: 06/16/25 Location[place] [facility] [place] Sex: F C Admitted: 06/11/25 Reason For Study Reason For Study: CHF Procedure This was a 2D Doppler, Color Flow transthoracic echocardiogram. The study was technically difficult. Exam performed portable in patient room. Left Ventricle Normal size and thickness. Borderline LV systolic function. Estimated LVEF 45-50%. Stage I diastolic dysfunction. Right Ventricle Normal right ventricle. Atria The left atrium is mildly enlarged. Normal right atrium. Mitral Valve Trivial mitral valve insufficiency. Tricuspid Valve Normal tricuspid valve. Unable to estimate RV systolic pressure due to inadequate jet, pulmonary artery pressure probably normal. Aortic Valve Trisinus/trileaflet aortic valve. Pulmonic Valve The pulmonic valve is not well visualized. Great Vessels Mildly dilated aortic root. Pericardium/Pleural No pericardial effusion. Medication Diluted definity 4.0ml given slow IV push to enhance endocardial definition. MMode/2D Measurements Calculations RVDd: 3.9 cm Ao root diam: 4.4 cm LAV(MOD-bp): 53.4 ml LAV(MOD-bp) Indexed: 18.8 ml/m2 LAV(MOD-sp2): 44.4 ml LAV(MOD-sp4): 60.5 ml _ SV(MOD-sp4): 61.6 ml LVAd ap4: 38.7 cm2 LVAd ap2: 31.1 cm2 LVLd ap4: 7.9 cm LVLd ap2: 7.3 cm SI(MOD-sp4): 21.7 ml/m2 EDV(MOD-sp4): 155.0 ml EDV(MOD-sp2): 108.0 ml EDV(sp4-el): 161.8 ml EDV(sp2-el): 111.8 ml LVAs ap4: 27.4 cm2 LVAs ap2: 22.6 cm2 LVLs ap4: 6.8 cm LVLs ap2: 6.7 cm ESV(MOD-sp4): 93.4 ml ESV(MOD-sp2): 63.1 ml ESV(sp4-el): 93.8 ml ESV(sp2-el): 65.1 ml EF(MOD-sp4): 39.7 % EF(MOD-sp2): 41.6 % EF(sp4-el): 42.0 % _ SV(MOD-sp2): 44.9 ml SV(sp4-el): 68.0 ml LA A4 area: 21.0 cm2 SI(MOD-sp2): 15.8 ml/m2 _ LA dimension(2D): 3.8 cm TAPSE: 1.9 cm RA A4 area: 13.4 cm2 Time Measurements MV dec time: 0.33 sec Doppler Measurements Calculations MV E max joaquín: 82.9 cm/sec Lat Peak E' Joaquín: 7.4 cm/sec Med Peak E' Joaquín: 7.9 cm/sec MV A max joaquín: 89.8 cm/sec E/E' lat: 11.2 E/E' med: 10.5 MV E/A: 0.92 _ MV dec slope: 249.9 cm/sec2 Ao V2 max: 156.8 cm/sec LV V1 max: 120.0 cm/sec Ao max P.8 mmHg LV V1 max P.8 mmHg Ao V2 mean: 113.1 cm/sec Ao mean P.7 mmHg Ao V2 VTI: 34.7 cm _ PA V2 max: 93.1 cm/sec ECHO/Echo Complete W/ Contrast Interpretation Summary The study was technically difficult. Borderline LV systolic function. Estimated LVEF 45-50%. Stage I diastolic dysfunction. The left atrium is mildly enlarged. Mildly dilated aortic root. Ordering Physician: Brittani Looney Referring Physician: ALONDRA ROSENBERG Performed By: Rosie Cox, YOLANDA 06/16/25 1312 Date Ihsan Izaguirre MD CC: Dr. Brittani Looney MD; VJ Maloney Date Dictated: 06/15/252351 Date Transcribed: 06/16/251311 Metabolic Specialist: Signed Normal [facility] Echocardiogram study reportO rdered By: Ihsan Izaguirre on 06-16-2025 Study report [facility] [address] [place] [address] Echo Complete W/ Contrast 06/15/252351 MR#: [id number] Acct: [id number] Name: JESUSITA ENGLAND Rep #:[id number] : 1970 55 From: Ihsan Izaguirre MD Attending Dr: Dr. Brittani Looney MD Status: ADM IN Ordering Dr: Brittani Looney MD Date: 06/16/25 Location[place] [facility] [place] Sex: F C Admitted: 06/11/25 Reason For Study Reason For Study: CHF Procedure This was a 2D Doppler, Color Flow transthoracic echocardiogram. The study was technically difficult. Exam performed portable in patient room. Left Ventricle Normal size and thickness. Borderline LV systolic function. Estimated LVEF 45-50%. Stage I diastolic dysfunction. Right Ventricle Normal right ventricle. Atria The left atrium is mildly enlarged. Normal right atrium. Mitral Valve Trivial mitral valve insufficiency. Tricuspid Valve Normal tricuspid valve. Unable to estimate RV systolic pressure due to inadequate jet, pulmonary artery pressure probably normal. Aortic Valve Trisinus/trileaflet aortic valve. Pulmonic Valve The pulmonic valve is not well visualized. Great Vessels Mildly dilated aortic root. Pericardium/Pleural No pericardial effusion. Medication Diluted definity 4.0ml given slow IV push to enhance endocardial definition. MMode/2D Measurements & Calculations RVDd: 3.9 cm Ao root diam: 4.4 cm LAV(MOD-bp): 53.4 ml LAV(MOD-bp) Indexed: 18.8 ml/m2 LAV(MOD-sp2): 44.4 ml LAV(MOD-sp4): 60.5 ml SV(MOD-sp4): 61.6 ml LVAd ap4: 38.7 cm2 LVAd ap2: 31.1 cm2 LVLd ap4: 7.9 cm LVLd ap2: 7.3 cm SI(MOD-sp4): 21.7 ml/m2 EDV(MOD-sp4): 155.0 ml EDV(MOD-sp2): 108.0 ml EDV(sp4-el): 161.8 ml EDV(sp2-el): 111.8 ml LVAs ap4: 27.4 cm2 LVAs ap2: 22.6 cm2 LVLs ap4: 6.8 cm LVLs ap2: 6.7 cm ESV(MOD-sp4): 93.4 ml ESV(MOD-sp2): 63.1 ml ESV(sp4-el): 93.8 ml ESV(sp2-el): 65.1 ml EF(MOD-sp4): 39.7 % EF(MOD-sp2): 41.6 % EF(sp4-el): 42.0 % SV(MOD-sp2): 44.9 ml SV(sp4-el): 68.0 ml LA A4 area: 21.0 cm2 SI(MOD-sp2): 15.8 ml/m2 _ LA dimension(2D): 3.8 cm TAPSE: 1.9 cm RA A4 area: 13.4 cm2 Time Measurements MV dec time: 0.33 sec Doppler Measurements & Calculations MV E max joaquín: 82.9 cm/sec Lat Peak E' Joaquín: 7.4 cm/sec Med Peak E' Joaquín: 7.9 cm/sec MV A max joaquín: 89.8 cm/sec E/E' lat: 11.2 E/E' med: 10.5 MV E/A: 0.92 MV dec slope: 249.9 cm/sec2 Ao V2 max: 156.8 cm/sec LV V1 max: 120.0 cm/sec Ao max P.8 mmHg LV V1 max P.8 mmHg Ao V2 mean: 113.1 cm/sec Ao mean P.7 mmHg Ao V2 VTI: 34.7 cm PA V2 max: 93.1 cm/sec ECHO/Echo Complete W/ Contrast Interpretation Summary The study was technically difficult. Borderline LV systolic function. Estimated LVEF 45-50%. Stage I diastolic dysfunction. The left atrium is mildly enlarged. Mildly dilated aortic root. Ordering Physician: Brittani Looney Referring Physician: ALONDRA ROSENBERG Performed By: Rosie Cox RDCS 06/16/25 1312 Date _ Ihsan Izaguirre MD CC: Dr. Brittani Looney MD; VJ Maloney ~ Date Dictated: 06/15/252 Date Transcribed: 06/16/25 1312 Metabolic Specialist: Signed [facility] Work Phone: Glomerular filtration rate ( GFR) estimation/1.73 sq m using serum, plasma, or whole bOrdered By: Antoni Abdul on 06-16-2025 GFR/1.73 sq M.predicted among non-blacks MDRD (S/P/Bld) [Vol rate/Area] 68 mL/min/{1.73_m2} >60 [facility] Comment on above: mL/min/1.73m2 CKD-EP I Creatinine Equation (2020) Magnesiumon 06-16-2025 Magnesium [Mass/Vol] 2.1 mg/dL Normal 1.5-2.2 [facility] Comment on above: Order Comment: Comme nts: add to am labs Performed By: #### L [id number], L501.5200 #### [facility] [address] [place], [address] Magnesium measurement (mass/ volume)Ordered By: Brittani Looney on 06-16-2025 Magnesium (Unsp spec) [Mass/Vol] 2.1 mg/dL 1.5-2.2 [facility] Potassium measurement (mass/ volume)Ordered By: Antoni Abdul on 06-16-2025 Potassium (Unsp spec) [Mass/Vol] 3.7 mmol/L 3.3-5.1 [facility] Serum creatinine measurement (mass/volume)Ordered By: Antoni Abdul on 06-16-2025 Creatinine [Mass/Vol] 0.97 mg/dL 0.70-1.20 [facility] Serum glucose measurement (m ass/volume)Ordered By: Antoni Abdul on 06-16-2025 Glucose [Mass/Vol] 131 mg/dL High 70-99 [facility] Serum or plasma calcium herson urement (mass/volume)Ordered By: Antoni Abdul on 06-16-2025 Calcium [Mass/Vol] 9.3 mg/dL 7.6-11.0 [facility] Serum or plasma urea nitroge n measurement (mass/volume)Ordered By: Antoni Abdul on 06-16-2025 Urea nitrogen [Mass/Vol] 28 mg/dL High 4-19 [facility] Sodium levelOrdered By: Antoni Abdul on 06-16-2025 Sodium [Moles/Vol] 136 mmol/L 133-145 [facility] TSH DL <= 0.005 mIU/L QnOrde red By: Brittani Looney on 06-16-2025 TSH Qn 2.840 uIU/mL 0.300-4.200 [facility] Thyroid Stim Hormone (TSH)on 06-16-2025 TSH 2.840 uIU/mL Normal 0.300-4.200 [facility] Comment on above: Order Comment: Comme nts: add to am labs Performed By: #### L 501.9500, L501.5200 #### [facility] [address] [place], [place], [address] Basic Metabolic Profile (BMP )on 06-15-2025 BUN/CRE 25.1 RATIO High 10-20 [facility] Comment on above: Performed By: #### L 400.0001, #### [facility] [address] [place], [address] Calcium [Mass/Vol] 9.0 mg/dL Normal 7.6-11.0 [facility] Comment on above: Performed By: #### L 400.0001, #### [facility] [address] [place], [address] Chloride [Moles/Vol] 93 mmol/L Low 98-108 [facility] Comment on above: Performed By: #### L 400.0001, #### [facility] [address] [place], [address] CO2 [Moles/Vol] 31.3 mmol/L Normal 21.0-32.0 [facility] Comment on above: Performed By: #### L 400.0001, #### [facility] [address] [place], [address] Creatinine [Mass/Vol] 1.04 mg/dL Normal 0.70-1.20 [facility] Comment on above: Performed By: #### L 400.0001, #### [facility] [address] [place], [address] ECRCL 114.68 ml/min Normal 50-250 [facility] Comment on above: Performed By: #### L 400.0001, #### [facility] [address] [place], [address] GAP 13 Normal 5-15 [facility] Comment on above: Performed By: #### L 400.0001, #### [facility] [address] [place], [address] GFR/1.73 sq M.predicted among non-blacks MDRD (S/P/Bld) [Vol rate/Area] 63 mL/min/{1.73_m2} Normal >60 [facility] Comment on above: Result Comment: mL/m in/1.73m2 CKD-EPI Creatinine Equation (2020) Performed By: #### L 400.0001, #### [facility] [address] [place], [address] Glucose [Mass/Vol] 123 mg/dL High 70-99 [facility] Comment on above: Performed By: #### L 400.0001, #### [facility] [address] [place], [address] Potassium [Moles/Vol] 3.8 mmol/L Normal 3.3-5.1 [facility] Comment on above: Result Comment: Hemo lysis present, Results??could be affected. ?? Performed By: #### L 400.0001, #### [facility] [address] [place], [address] Sodium [Moles/Vol] 137 mmol/L Normal 133-145 [facility] Comment on above: Performed By: #### L 400.0001, #### [facility] [address] [place], [address] Urea nitrogen [Mass/Vol] 26 mg/dL High 4-19 [facility] Comment on above: Performed By: #### L 400.0001, #### [facility] [address] [place], [address] Absolute lymphocyte countOrd ered By: Antoni Abdul on 06-14-2025 Lymphocytes Auto (Unsp spec) [#/Vol] 0.91 10*3/uL 0.83-4.51 [facility] Absolute neutrophil countOrd ered By: Antoni Abdul on 06-14-2025 Neutrophils (Bld) [#/Vol] 3.9 10*3/uL 2.0-7.7 [facility] Automated blood erythrocyte countOrdered By: Antoni Abdul on 06-14-2025 RBC (Bld) [#/Vol] 5.18 10*6/uL Normal 4.2-5.4 [facility] Comment on above: Performed By: #### L 100.0100 #### [facility] [address] [place], [address] Automated blood hematocrit ( percentage)Ordered By: Antoni Abdul on 06-14-2025 Hematocrit (Bld) [Volume fraction] 42.7 % Normal 37-47 [facility] Comment on above: Performed By: #### L 100.0100 #### [facility] [address] [place], [address] Automated lymphocyte count a s percentage of total leukocytesOrdered By: Antoni Abdul on 06-14-2025 Lymphocytes/100 WBC Auto (Unsp spec) 16.4 % Low 19-41 [facility] Basic Metabolic Profile (BMP )on 06-14-2025 BUN/CRE 19.2 RATIO Normal 10-20 [facility] Comment on above: Performed By: #### L 400.0001, #### [facility] [address] [place], [address] Calcium [Mass/Vol] 9.1 mg/dL Normal 7.6-11.0 [facility] Comment on above: Performed By: #### L 400.0001, #### [facility] [address] [place], [address] Chloride [Moles/Vol] 93 mmol/L Low 98-108 [facility] Comment on above: Performed By: #### L 400.0001, #### [facility] [address] [place], [address] CO2 [Moles/Vol] 31.0 mmol/L Normal 21.0-32.0 [facility] Comment on above: Performed By: #### L 400.0001, #### [facility] [address] [place], [address] Creatinine [Mass/Vol] 1.07 mg/dL Normal 0.70-1.20 [facility] Comment on above: Performed By: #### L 400.0001, #### [facility] [address] [place], [address] ECRCL 112.46 ml/min Normal 50-250 [facility] Comment on above: Performed By: #### L 400.0001, #### [facility] [address] [place], [address] GAP 13 Normal 5-15 [facility] Comment on above: Performed By: #### L 400.0001, #### [facility] [address] [place], [address] GFR/1.73 sq M.predicted among non-blacks MDRD (S/P/Bld) [Vol rate/Area] 61 mL/min/{1.73_m2} Normal >60 [facility] Comment on above: Result Comment: mL/m in/1.73m2 CKD-EPI Creatinine Equation (2020) Performed By: #### L 400.0001, #### [facility] [address] [place], [address] Glucose [Mass/Vol] 119 mg/dL High 70-99 [facility] Comment on above: Performed By: #### L 400.0001, #### [facility] [address] [place], [address] Potassium [Moles/Vol] 3.9 mmol/L Normal 3.3-5.1 [facility] Comment on above: Performed By: #### L 400.0001, #### [facility] [address] [place], [address] Sodium [Moles/Vol] 137 mmol/L Normal 133-145 [facility] Comment on above: Performed By: #### L 400.0001, M100.2200 #### [facility] [address] [place], [address] Urea nitrogen [Mass/Vol] 21 mg/dL High 4-19 [facility] Comment on above: Performed By: #### L 400.0001, M100.0 #### [facility] [address] [place], [address] Basophil percentageOrdered B y: Antoni Franko on 06-14-2025 Basophils/100 WBC (Bld) 0.4 % Normal 0-1 [facility] Comment on above: Performed By: #### L 100.0100 #### [facility] [address] [place], [address] CBC W/Diff, Automatedon 05-30 Absolute Lymph 0.91 X10 3/uL Normal 0.83-4.51 [facility] Comment on above: Performed By: #### L 100.0100 #### [facility] [address] [place], [address] Absolute Neut 3.9 X10 3/uL Normal 2.0-7.7 [facility] Comment on above: Performed By: #### L 100.0100 #### [facility] [address] [place], [address] IG% 0.500 Normal 0.0-0.9 [facility] Comment on above: Result Comment: IG% - Immature Granulocytes (promyelocytes, myelocytes and metamyelocytes) > 1% indicates that a LEFT SHIFT is Present. Performed By: #### L 100.0100 #### [facility] [address] [place], [address] Lymphocytes/100 WBC (Bld) 16.4 % Low 19-41 [facility] Comment on above: Performed By: #### L 100.0100 #### [facility] [address] [place], [address] Nucleated RBC (Bld) [#/Vol] 0 10*3/uL Normal 0-5 [facility] Comment on above: Performed By: #### L 100.0100 #### [facility] [address] [place], [address] RDW SD 43.9 fl Normal 35.1-43.9 [facility] Comment on above: Performed By: #### L 100.0100 #### [facility] [address] [place], [address] Eosinophil percentageOrdered By: Antoni Abdul on 06-14-2025 Eosinophils/100 WBC (Bld) 0.2 % Normal 0-5 [facility] Comment on above: Performed By: #### L 100.0100 #### [facility] [address] [place], [address] Erythrocyte distribution wid th ratioOrdered By: Antoni Abdul on 06-14-2025 Erythrocyte distribution width (RBC) [Ratio] 14.6 % Normal 11.6-14.6 [facility] Comment on above: Performed By: #### L 100.0100 #### [facility] [address] [place], [address] Erythrocyte distribution wid th standard deviationOrdered By: Antoni Abdul on 06-14-2025 Erythrocyte distribution width (RBC) [Ratio] 43.9 fl 35.1-43.9 [facility] Hemoglobin measurementOrdere d By: Antoni Abdul on 06-14-2025 Hemoglobin (Bld) [Mass/Vol] 13.9 g/dL Normal 12.0-15.0 [facility] Comment on above: Performed By: #### L 100.0100 #### [facility] [address] [place], [address] Immature granulocytes/100 WB C Auto (Bld)Ordered By: Antoni Abdul on 06-14-2025 Immature granulocytes/100 WBC (Bld) 0.500 % 0.0-0.9 [facility] Comment on above: IG% - Immature Granu locytes (promyelocytes, myelocytes and metamyelocytes) > 1% indicates that a LEFT SHIFT is Present. MCV (mean corpuscular volume ) determinationOrdered By: Antoni Abdul on 06-14-2025 MCV (RBC) [Entitic vol] 82.4 fL Normal 81-99 [facility] Comment on above: Performed By: #### L 100.0100 #### [facility] [address] [facility] [place], [address] Mean corpuscular hemoglobin (MCH) determinationOrdered By: Antoni Abdul on 06-14-2025 MCH (RBC) [Entitic mass] 26.8 pg Low 27.0-32.0 [facility] Comment on above: Performed By: #### L 100.0100 #### [facility] [address] [place], [address] Mean corpuscular hemoglobin concentration (MCHC) determinationOrdered By: Antoni Abdul on 06-14-2025 MCHC (RBC) [Mass/Vol] 32.6 g/dL Normal 32-36 [facility] Comment on above: Performed By: #### L 100.0100 #### [facility] [address] [place], [address] Mean platelet volume determi nationOrdered By: Antoni Abdul on 06-14-2025 Platelet mean volume (Bld) [Entitic vol] 9.6 fL Normal 6.2-12.0 [facility] Comment on above: Performed By: #### L 100.0100 #### [facility] [address] [facility] [place], [address] Monocyte percentageOrdered B y: Antonijuan carlos Abdul on 06-14-2025 Monocytes/100 WBC (Bld) 12.1 % High 0-10 [facility] Comment on above: Performed By: #### L 100.0100 #### [facility] [address] [place], [address] Neutrophil percentageOrdered By: Antonijuan carlos Abdul on 06-14-2025 Neutrophils/100 WBC (Bld) 70.4 % High 47-70 [facility] Comment on above: Performed By: #### L 100.0100 #### [facility] [address] [place], [address] Nucleated red blood cell per centageOrdered By: Antonijuan carlos Abdul on 06-14-2025 Nucleated RBC/100 WBC (Bld) [Ratio] 0 % 0-5 [facility] Platelet countOrdered By: Brenda juan carlos Abdul on 06-14-2025 Platelets (Bld) [#/Vol] 156 10*3/uL Normal 150-450 [facility] Comment on above: Performed By: #### L 100.0100 #### [facility] [address] [place], [address] White blood cell (WBC) count Ordered By: Antonijuan carlos Abdul on 06-14-2025 WBC (Bld) [#/Vol] 5.6 10*3/uL Normal 4.4-11.0 [facility] Comment on above: Performed By: #### L 100.0100 #### [facility] [address] [place], [address] Basic Metabolic Profile (BMP )on 06-13-2025 BUN/CRE 16.1 RATIO Normal 10-20 [facility] Comment on above: Performed By: #### L 400.0001, M100.2200 #### [facility] [address] [place], [address] Calcium [Mass/Vol] 9.0 mg/dL Normal 7.6-11.0 [facility] Comment on above: Performed By: #### L 400.0001, .2199 #### [facility] [address] [place], [address] Chloride [Moles/Vol] 96 mmol/L Low 98-108 [facility] Comment on above: Performed By: #### L 400.0001, .2199 #### [facility] [address] [place], [address] CO2 [Moles/Vol] 29.9 mmol/L Normal 21.0-32.0 [facility] Comment on above: Performed By: #### L 400.0001, #### [facility] [address] [place], [address] Creatinine [Mass/Vol] 0.87 mg/dL Normal 0.70-1.20 [facility] Comment on above: Performed By: #### L 400.0001, #### [facility] [address] [place], [address] ECRCL 137.81 ml/min Normal 50-250 [facility] Comment on above: Performed By: #### L 400.0001, #### [facility] [address] [place], [address] GAP 13 Normal 5-15 [facility] Comment on above: Performed By: #### L 400.0001, #### [facility] [address] [place], [address] GFR/1.73 sq M.predicted among non-blacks MDRD (S/P/Bld) [Vol rate/Area] 78 mL/min/{1.73_m2} Normal >60 [facility] Comment on above: Result Comment: mL/m in/1.73m2 CKD-EPI Creatinine Equation (2020) Performed By: #### L 400.0001, M1.2200 #### [facility] [address] [place], [address] Glucose [Mass/Vol] 116 mg/dL High 70-99 [facility] Comment on above: Performed By: #### L 400.0001, #### [facility] [address] [place], [address] Potassium [Moles/Vol] 3.8 mmol/L Normal 3.3-5.1 [facility] Comment on above: Performed By: #### L 400.0001, #### [facility] [address] [place], [address] Sodium [Moles/Vol] 138 mmol/L Normal 133-145 [facility] Comment on above: Performed By: #### L 400.0001, #### [facility] [address] [place], [address] Urea nitrogen [Mass/Vol] 14 mg/dL Normal 4-19 [facility] Comment on above: Performed By: #### L 400.0001, #### [facility] [address] [place], [address] Basic Metabolic Profile (BMP )on 06-12-2025 BUN/CRE 15.4 RATIO Normal 10-20 [facility] Comment on above: Performed By: #### L 501.9520, L501.5200 #### [facility] [address] [place], [address] Calcium [Mass/Vol] 8.5 mg/dL Normal 7.6-11.0 [facility] Comment on above: Performed By: #### L 501.9520, L501.5200 #### [facility] [address] [place], [address] Chloride [Moles/Vol] 103 mmol/L Normal 98-108 [facility] Comment on above: Performed By: #### L 501.9520, L501.5200 #### [facility] [address] [place], [address] CO2 [Moles/Vol] 23.8 mmol/L Normal 21.0-32.0 [facility] Comment on above: Performed By: #### L 501.9520, L501.5200 #### [facility] [address] [place], [address] Creatinine [Mass/Vol] 0.77 mg/dL Normal 0.70-1.20 [facility] Comment on above: Performed By: #### L 501.9520, L501.5200 #### [facility] [address] [place], [address] ECRCL 155.71 ml/min Normal 50-250 [facility] Comment on above: Performed By: #### L 501.9520, L501.5200 #### [facility] [address] [place], [address] GAP 10 Normal 5-15 [facility] Comment on above: Performed By: #### L 501.9520, L501.5200 #### [facility] [address] [place], [address] GFR/1.73 sq M.predicted among non-blacks MDRD (S/P/Bld) [Vol rate/Area] 90 mL/min/{1.73_m2} Normal >60 [facility] Comment on above: Result Comment: mL/m in/1.73m2 CKD-EPI Creatinine Equation (2020) Performed By: #### L 501.9520, L501.5200 #### [facility] [address] [place], [address] Glucose [Mass/Vol] 112 mg/dL High 70-99 [facility] Comment on above: Performed By: #### L 501.9520, L501.5200 #### [facility] [address] [place], [address] Potassium [Moles/Vol] 4.0 mmol/L Normal 3.3-5.1 [facility] Comment on above: Performed By: #### L 501.9520, L501.5200 #### [facility] [address] [place], [address] Sodium [Moles/Vol] 137 mmol/L Normal 133-145 [facility] Comment on above: Performed By: #### L 501.9520, L501.5200 #### [facility] [address] [place], [address] Urea nitrogen [Mass/Vol] 12 mg/dL Normal 4-19 [facility] Comment on above: Performed By: #### L 501.9520, L501.5200 #### [facility] [address] [place], [address] Electrocardiogram reportOrde red By: Kevin Foster on 06-12-2025 EKG study [facility] [address] [place] [address] 12 Lead EKG 06/11/25 0041 MR#: [id number] Acct: [id number] Name: JESUSITA ENGLAND Rep #:[id number] 2 : 1970 55 From: Kevin Foster MD Attending Dr: Dr. Antoni Abdul, DO Status: ADM IN Ordering Dr: Reji George DO D ate: 06/10/25 Location: [facility] [place] Sex: F C Admitted: 06/11/25 Test Reason : DYSRHYTHMIA Blood Pressure : */* mmHG Vent. 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 Reji George, DO; Dr. Antoni Abdul, DO; VJ Maloney ~ Signed [facility] Other Phone: Serum or plasma vancomycin m easurement (mass/volume)Ordered By: Antoni Abdul on 06-12-2025 Vancomycin [Mass/Vol] 16.1 ug/mL High 0.0-15.0 [facility] Comment on above: VANCOMYCIN STANDARD DRUG THERAPY: CRITICAL VALUE IS > 15.0 mg/L VANCOMYCIN HIGH INTENSITY THERAPY: CRITICAL VALUE IS > 20.0 mg/L PLEASE CONTACT PHARMACY SERVICES (#[id number]) FOR INTERPRETATIONOF RESULTS. THIS RESULT DOES NOT REPRESENT A PEAK OR TROUGHLEVEL FOR THIS DRUG. Trough vancomycin levelOrder ed By: Mauri Sampson on 06-12-2025 Vancomycin trough [Mass/Vol] 24.4 ug/mL High 5.0-15.0 [facility] Comment on above: Recommended goal tro ugh ranges are generally 10-15 mcg/ml for less severe/complicated infections such as cellulitis or UTI and 15-20 mcg/ml for more severe/complicated infections such as bacteremia/sepsis, osteomyelitis, pneumonia or meningitis. Goal trough ranges should take into account indication, patient-specific factors and organism SOSA.VANCOMYCIN STANDARED DRUG THERAPY TROUGH LEVEL: 5.0 - 15.0 mg/L VANCOMYCIN HIGH INTENSITY THERAPY TROUGH LEVEL: 15.0 - 20.0 mg/L High Intensity therapy recommended for serious lifethreatening infections include:- Izvifeqiuj-Fulmonklezel-Lcelwbpsi (Ventilator/Healtcare Associated)-Sepsis PLEASE CONTACT PHARMACY SERVICES (#[id number]) FOR INTERPRETATIONOF RESULTS. Urine Cultureon 06-12-2025 URC Culture exhibits no growth. Normal [facility] Comment on above: Performed By: #### L 400.0001, M1 #### [facility] [address] [place], [address] Vancomycin, Random Levelon 0 06-12-2025 VANCO, RANDOM 16.1 ug/mL High 0.0-15.0 [facility] Comment on above: Result Comment: VANC OMYCIN STANDARD DRUG THERAPY: CRITICAL VALUE IS > 15.0 mg/L VANCOMYCIN HIGH INTENSITY THERAPY: CRITICAL VALUE IS > 20.0 mg/L PLEASE CONTACT PHARMACY SERVICES (#[id number]) FOR INTERPRETATION OF RESULTS. THIS RESULT DOES NOT REPRESENT A PEAK OR TROUGH LEVEL FOR THIS DRUG. Performed By: #### L 501.9535, L501.5200 #### [facility] [address] [facility] [address] [place], [place], [id number] Vancomycin, Trough Levelon 0 - VANCO, TROUGH 24.4 ug/mL High 5.0-15.0 [facility] Comment on above: Order Comment: JAZZMINE TER SPECIMEN Result Comment: Nadeem mmended goal trough ranges are generally 10-15 mcg/ml for less severe/complicated infections such as cellulitis or UTI and 15-20 mcg/ml for more severe/complicated infections such as bacteremia/sepsis, osteomyelitis, pneumonia or meningitis. Goal trough ranges should take into account indication, patient-specific factors and organism SOSA. VANCOMYCIN STANDARED DRUG THERAPY TROUGH LEVEL: 5.0 - 15.0 mg/L VANCOMYCIN HIGH INTENSITY THERAPY TROUGH LEVEL: 15.0 - 20.0 mg/L High Intensity therapy recommended for serious life threatening infections include: - Meningitis -Endocarditis -Pneumonia (Ventilator/Healtcare Associated) -Sepsis PLEASE CONTACT PHARMACY SERVICES (#[id number]) FOR INTERPRETATION OF RESULTS. Performed By: #### L 400.0001, M10 #### [facility] [address] [place], [place], [id number] Absolute lymphocyte countOrd ered By: Reji George on 06-11-2025 Lymphocytes Auto (Unsp spec) [#/Vol] 0.32 10*3/uL Low 0.83-4.51 [facility] Absolute neutrophil countOrd ered By: Reji George on 06-11-2025 Neutrophils (Bld) [#/Vol] 14.6 10*3/uL High 2.0-7.7 [facility] Activated partial thrombopla stin time (aPTT) in platelet poor plasma by coagulation aOrdered By: Reji George on 06-11-2025 aPTT Coag (PPP) [Time] 29.1 s 24.1-36.2 [facility] Anion gap in Serum or Plasma Ordered By: Reji George on 06-11-2025 Anion gap [Moles/Vol] 12 mmol/L 5-15 [facility] Automated lymphocyte count a s percentage of total leukocytesOrdered By: Reji George on 06-11-2025 Lymphocytes/100 WBC Auto (Unsp spec) 2.0 % Low 19-41 [facility] BUN/creatinine ratioOrdered By: Reji George on 06-11-2025 Urea nitrogen/Creatinine [Mass ratio] 20.2 mg/mg High 10-20 [facility] Basic Metabolic Profile (BMP )on 06-11-2025 BUN/CRE 17.5 RATIO Normal 10-20 [facility] Comment on above: Performed By: #### L 400.0001, #### [facility] [address] [place], [address] Calcium [Mass/Vol] 8.5 mg/dL Normal 7.6-11.0 [facility] Comment on above: Performed By: #### L 400.0001, #### [facility] [address] [place], [address] Chloride [Moles/Vol] 101 mmol/L Normal 98-108 [facility] Comment on above: Performed By: #### L 400.0001, #### [facility] [address] [place], [address] CO2 [Moles/Vol] 22.4 mmol/L Normal 21.0-32.0 [facility] Comment on above: Performed By: #### L 400.0001, #### [facility] [address] [place], [address] Creatinine [Mass/Vol] 0.91 mg/dL Normal 0.70-1.20 [facility] Comment on above: Performed By: #### L 400.0001, #### [facility] [address] [place], [address] ECRCL 131.71 ml/min Normal 50-250 [facility] Comment on above: Performed By: #### L 400.0001, #### [facility] [address] [place], [address] GAP 11 Normal 5-15 [facility] Comment on above: Performed By: #### L 400.0001, #### [facility] [address] [place], [address] GFR/1.73 sq M.predicted among non-blacks MDRD (S/P/Bld) [Vol rate/Area] 73 mL/min/{1.73_m2} Normal >60 [facility] Comment on above: Result Comment: mL/m in/1.73m2 CKD-EPI Creatinine Equation (2020) Performed By: #### L 400.0001, #### [facility] [address] [place], [address] Glucose [Mass/Vol] 115 mg/dL High 70-99 [facility] Comment on above: Performed By: #### L 400.0001, #### [facility] [address] [place], [address] Potassium [Moles/Vol] 3.6 mmol/L Normal 3.3-5.1 [facility] Comment on above: Performed By: #### L 400.0001, #### [facility] [address] [place], [address] Sodium [Moles/Vol] 135 mmol/L Normal 133-145 [facility] Comment on above: Performed By: #### L 400.0001, #### [facility] [address] [place], [address] Urea nitrogen [Mass/Vol] 16 mg/dL Normal 4-19 [facility] Comment on above: Performed By: #### L 400.0001, #### [facility] [address] [place], [address] Basophil percentageOrdered B y: Reji George on 06-11-2025 Basophils/100 WBC (Bld) 0.1 % 0-1 [facility] Bilirubin Test strip Ql (U)O rdered By: Reji George on 06-11-2025 Bilirubin Ql (U) Negative Negative [facility] Bilirubin, totalOrdered By: Reji George on 06-11-2025 Bilirubin [Mass/Vol] 0.52 mg/dL 0.00-1.30 [facility] Blood cultureOrdered By: Francisco Javier George on 06-11-2025 Bacteria identified Cx Nom (Bld) Pseudomonas aeruginosa Abnormal [facility] Bacteria identified Cx Nom (Bld) No growth in 5 days. [facility] CBC W/Diff, Automatedon 05-30 Absolute Lymph 0.32 X10 3/uL Low 0.83-4.51 [facility] Comment on above: Performed By: #### L 400.0001, #### [facility] [address] [place], [address] Absolute Neut 14.6 X10 3/uL High 2.0-7.7 [facility] Comment on above: Performed By: #### L 400.0001, #### [facility] [address] [place], [address] Basophils/100 WBC (Bld) 0.1 % Normal 0-1 [facility] Comment on above: Performed By: #### L 400.0001, #### [facility] [address] [place], [address] Eosinophils/100 WBC (Bld) 0.0 % Normal 0-5 [facility] Comment on above: Performed By: #### L 400.0001, #### [facility] [address] [facility] [place], [address] Erythrocyte distribution width (RBC) [Ratio] 15.0 % High 11.6-14.6 [facility] Comment on above: Performed By: #### L 400.0001, #### [facility] [facility] [place], [address] Hematocrit (Bld) [Volume fraction] 39.1 % Normal 37-47 [facility] Comment on above: Performed By: #### L 400.0001, #### [facility] [address] [facility] [place], [address] Hemoglobin (Bld) [Mass/Vol] 12.6 g/dL Normal 12.0-15.0 [facility] Comment on above: Performed By: #### L 400.0001, #### [facility] [address] [place], [address] IG% 1.300 High 0.0-0.9 [facility] Comment on above: Result Comment: IG% - Immature Granulocytes (promyelocytes, myelocytes and metamyelocytes) > 1% indicates that a LEFT SHIFT is Present. Performed By: #### L 400.0001, #### [facility] [address] [place], [address] Lymphocytes/100 WBC (Bld) 2.0 % Low 19-41 [facility] Comment on above: Performed By: #### L 400.0001, .2199 #### [facility] [address] [place], [address] MCH (RBC) [Entitic mass] 27.4 pg Normal 27.0-32.0 [facility] Comment on above: Performed By: #### L 400.0001, .2199 #### [facility] [address] [place], [address] MCHC (RBC) [Mass/Vol] 32.2 g/dL Normal 32-36 [facility] Comment on above: Performed By: #### L 400.0001, #### [facility] [address] [place], [address] MCV (RBC) [Entitic vol] 85.0 fL Normal 81-99 [facility] Comment on above: Performed By: #### L 400.0001, #### [facility] [address] [place], [address] Monocytes/100 WBC (Bld) 5.7 % Normal 0-10 [facility] Comment on above: Performed By: #### L 400.0001, #### [facility] [address] [place], [address] Neutrophils/100 WBC (Bld) 90.9 % High 47-70 [facility] Comment on above: Performed By: #### L 400.0001, #### [facility] [address] [place], [address] Nucleated RBC (Bld) [#/Vol] 0 10*3/uL Normal 0-5 [facility] Comment on above: Performed By: #### L 400.0001, #### [facility] [address] [place], [address] Platelet mean volume (Bld) [Entitic vol] 9.5 fL Normal 6.2-12.0 [facility] Comment on above: Performed By: #### L 400.0001, #### [facility] [address] [place], [address] Platelets (Bld) [#/Vol] 163 10*3/uL Normal 150-450 [facility] Comment on above: Performed By: #### L 400.0001, #### [facility] [address] [place], [address] RBC (Bld) [#/Vol] 4.60 10*6/uL Normal 4.2-5.4 [facility] Comment on above: Performed By: #### L 400.0001, #### [facility] [address] [place], [address] RDW SD 45.9 fl High 35.1-43.9 [facility] Comment on above: Performed By: #### L 400.0001, #### [facility] [address] [place], [address] WBC (Bld) [#/Vol] 16.1 10*3/uL High 4.4-11.0 [facility] Comment on above: Performed By: #### L 400.0001, #### [facility] [address] [place], [address] CBC-Complete Blood Cnt No Di ffon 06-11-2025 Erythrocyte distribution width (RBC) [Ratio] 15.1 % High 11.6-14.6 [facility] Comment on above: Performed By: #### L 400.0001, #### [facility] [address] [place], [address] Hematocrit (Bld) [Volume fraction] 36.1 % Low 37-47 [facility] Comment on above: Performed By: #### L 400.0001, #### [facility] [address] [place], [address] Hemoglobin (Bld) [Mass/Vol] 12.0 g/dL Normal 12.0-15.0 [facility] Comment on above: Performed By: #### L 400.0001, #### [facility] [address] [place], [address] MCH (RBC) [Entitic mass] 27.3 pg Normal 27.0-32.0 [facility] Comment on above: Performed By: #### L 400.0001, #### [facility] [address], [address] MCHC (RBC) [Mass/Vol] 33.2 g/dL Normal 32-36 [facility] Comment on above: Performed By: #### L 400.0001, #### [facility] [address] [place], [address] MCV (RBC) [Entitic vol] 82.0 fL Normal 81-99 [facility] Comment on above: Performed By: #### L 400.0001, #### [facility] [address] [place], [address] Platelet mean volume (Bld) [Entitic vol] 9.2 fL Normal 6.2-12.0 [facility] Comment on above: Performed By: #### L 400.0001, #### [facility] [address] [place], [address] Platelets (Bld) [#/Vol] 150 10*3/uL Normal 150-450 [facility] Comment on above: Performed By: #### L 400.0001, #### [facility] [address] [place], [address] RBC (Bld) [#/Vol] 4.40 10*6/uL Normal 4.2-5.4 [facility] Comment on above: Performed By: #### L 400.0001, .2199 #### [facility] [address] [place], [address] RDW SD 45.6 fl High 35.1-43.9 [facility] Comment on above: Performed By: #### L 400.0001, #### [facility] [address] [place], [address] WBC (Bld) [#/Vol] 13.1 10*3/uL High 4.4-11.0 [facility] Comment on above: Performed By: #### L 400.0001, #### [facility] [address] [place], [address] CO2 (BldV) [Moles/Vol]Ordere d By: Reji George on 06-11-2025 CO2 [Moles/Vol] 28 mmol/L 23-33 [facility] Carbon dioxide, total [Moles /volume] in Central venous bloodOrdered By: Reji George on 06-11-2025 CO2 [Moles/Vol] 26.1 mmol/L 21.0-32.0 [facility] Chloride assayOrdered By: Chase George on 06-11-2025 Chloride [Moles/Vol] 96 mmol/L Low 98-108 [facility] Comprehensive Metabolic Prof ilon 06-11-2025 Albumin [Mass/Vol] 4.0 g/dL Normal 3.5-5.0 [facility] Comment on above: Performed By: #### L 400.0001, #### [facility] [address] [place], [address] Albumin/Globulin [Mass ratio] 1.2 {ratio} Normal 0.9-2.4 [facility] Comment on above: Performed By: #### L 400.0001, #### [facility] [address] [place], [address] ALK PHOS 88 U/L Normal 35-104 [facility] Comment on above: Performed By: #### L 400.0001, #### [facility] [address] [place], [address] ALT [Catalytic activity/Vol] 24 U/L Normal <=34 [facility] Comment on above: Performed By: #### L 400.0001, #### [facility] [address] [place], [address] AST [Catalytic activity/Vol] 30 U/L Normal <=31 [facility] Comment on above: Performed By: #### L 400.0001, #### [facility] [address] [place], [address] Bilirubin [Mass/Vol] 0.52 mg/dL Normal 0.00-1.30 [facility] Comment on above: Performed By: #### L 400.0001, #### [facility] [address] [place], [address] BUN/CRE 20.2 RATIO High 10-20 [facility] Comment on above: Performed By: #### L 400.0001, #### [facility] [address] [place], [address] Calcium [Mass/Vol] 9.4 mg/dL Normal 7.6-11.0 [facility] Comment on above: Performed By: #### L 400.0001, #### [facility] [address] [place], [address] Chloride [Moles/Vol] 96 mmol/L Low 98-108 [facility] Comment on above: Performed By: #### L 400.0001, #### [facility] [address] [place], [address] CO2 [Moles/Vol] 26.1 mmol/L Normal 21.0-32.0 [facility] Comment on above: Performed By: #### L 400.0001, #### [facility] [address] [place], [address] Creatinine [Mass/Vol] 0.93 mg/dL Normal 0.70-1.20 [facility] Comment on above: Performed By: #### L 400.0001, #### [facility] [address] [place], [address] ECRCL 136.23 ml/min Normal 50-250 [facility] Comment on above: Performed By: #### L 400.0001, #### [facility] [address] [place], [address] GAP 12 Normal 5-15 [facility] Comment on above: Performed By: #### L 400.0001, #### [facility] [address] [place], [address] GFR/1.73 sq M.predicted among non-blacks MDRD (S/P/Bld) [Vol rate/Area] 71 mL/min/{1.73_m2} Normal >60 [facility] Comment on above: Result Comment: mL/m in/1.73m2 CKD-EPI Creatinine Equation (2020) Performed By: #### L 400.0001, #### [facility] [address] [place], [address] Globulin (S) [Mass/Vol] 3.3 g/dL Normal 2.2-4.2 [facility] Comment on above: Performed By: #### L 400.0001, M1.2199 #### [facility] [address] [place], [address] Glucose [Mass/Vol] 130 mg/dL High 70-99 [facility] Comment on above: Performed By: #### L 400.0001, .2199 #### [facility] [address] [place], [address] Potassium [Moles/Vol] 4.6 mmol/L Normal 3.3-5.1 [facility] Comment on above: Performed By: #### L 400.0001, .2199 #### [facility] [address] [place], [address] Sodium [Moles/Vol] 134 mmol/L Normal 133-145 [facility] Comment on above: Performed By: #### L 400.0001, .2199 #### [facility] [address] [place], [address] T PROT 7.3 g/dL Normal 5.9-8.4 [facility] Comment on above: Performed By: #### L 400.0001, #### [facility] [address] [place], [address] Urea nitrogen [Mass/Vol] 19 mg/dL Normal 4-19 [facility] Comment on above: Performed By: #### L 400.0001, M1 #### [facility] [address] [place], [address] Emergency Department Summary on 06-11-2025 Emergency Department Summary [facility] Medical Records Department [address] [place] [address] Emergency Department Summary 06/11/25 MR#: [id number] Acct: [id number] Name: JESUSITA ENGLAND Rep #: [id number] : 1970 55 From: Reji George DO PCP: VJ Maloney Status:ADM IN Location: [place] [address] HPI History of Present Illness Chief Complaint: Shortness of Breath Narrative Narrative: Chief complaint and HPI: Shortness of breath and bilateral lower extremity cellulitis. 55-year-old female with past medical history of morbid obesity, MIGUEL, IBS, depression presents for evaluation of bilateral lower extremity cellulitis and shortness of breath. Patient states for the past several days she has been having increased redness to her bilateral lower extremities. She states today she developed fever and exertional dyspnea. States she has a chronic cough. She denies any chest pain, abdominal pain, nausea, vomiting, dysuria. States she has baseline incontinence. Patient states she has a past medical history of recurrent sepsis. Review of systems: See HPI Medications: As listed on the chart Allergies: As listed on the chart PFSH: Per chart Vital signs: As listed on the chart. Reviewed. Physical exam: Gen: A O x3, dyspneic when speaking although patient did just ambulate Head: Normocephalic, atraumatic Eyes: No sclera icterus, conjunctiva clear, PERRL ENT: Moist mucous membranes Neck: Trachea midline, No JVD CV: RRR, no murmurs, no peripheral edema Resp: Lungs diminished and difficult to auscultate secondary to her body habitus, dyspneic when speaking, tachypneic GI: Abd soft, non-distended, non-tender, no r/r/g Musc: Moves all extremity, no deformity Skin: Warm, dry, cellulitis of bilateral lower extremities Neuro: Alert, oriented, grossly intact, sensation intact Psych: Cooperative, appropriate mood and affect [facility] Medical History Hyperglycemia Failure of outpatient treatment Ascending aorta dilatation Abnormal echocardiogram IBS (irritable bowel syndrome) Depression Heel spur Osteoarthritis (arthritis due to wear and tear of joints) Asthma GERD without esophagitis Insomnia Anxiety Home Medications ???Medication ???Instructions ???Recorded ???Last Taken ???Type acetaminophen 500 mg capsule 1,000 mg PO Q6H PRN Pain 07/11/21 05/04/24 History ferrous sulfate 325 mg (65 mg 325 mg PO DAILY@1200 iron #30 tabs 08/01/21 06/09/25 Rx iron) tablet (FeroSul) venlafaxine 75 mg capsule,extended 225 mg (3 x 75 mg) PO DAILY 10/0 04/1906/09/25 Rx release 24 hr (Effexor XR) depression #90 caps lisinopril 10 mg tablet 10 mg PO DAILY blood pressure 08/2 04/2106/09/25 History nystatin 100,000 unit/gram topical 1 applic topical BID yeast 07/3105/04/24 Rx powder ([facility]) infection 30 days #60 grams cholecalciferol (vitamin D3) 1 tab PO DAILY supplement 04/04/24 06/09/25 History valacyclovir 1 gram tablet 2,000 mg PO BID PRN cold sore 08/23 Unknown History L.acidophil,salivari-Bif karolina 1 cap PO BID 10 days #20 caps 04/3006/09/25 Rx bifidum-Strep thermoph 175 mg capsule [id number]-B12 -vit C 1 tab PO DAILY 06/11/25 Unknown Hi story albuterol sulfate 2.5 mg/3 mL 2.5 mg continuous nebulization Q4H 06/11/25 Unknown History (0.083 %) solution for nebulization PRN PRN dyspnea buspirone 5 mg tablet 5 mg PO BID mood 06/11/25 06/09/25 History calcium carbonate (Ally-Cornell 600 mg PO TID PRN dyspepsia 06/09/25 History Heartburn Chew) cholestyramine (with sugar) 4 gram 2 - 4 ea PO DAILY supp 06/11/25 06/09/25 History oral powder multivitamin (Daily Multi-Vitamin 1 tab PO DAILY supp 06/11/2505/30 History tablet) pantoprazole 20 mg tablet,delayed 20 mg PO DAILY stomach 06/11/25 0 06/09/25 History release Allergy/AdvReac Type Severity Reaction Status Date / Time adhesive tape AdvReac Unknown Other Verified 04/04/24 19:07 Family History Mother Alzheimer's dementia Surgical History H/O foot surgery History of hip surgery History of cholecystectomy Social History household members: spouse housing: house [...] intake: current alcohol intake frequency: holidays/special occasions onl (more content not included)... Normal [facility] Eosinophil percentageOrdered By: Reji George on 06-11-2025 Eosinophils/100 WBC (Bld) 0.0 % 0-5 [facility] Erythrocyte distribution wid th ratioOrdered By: Reji George on 06-11-2025 Erythrocyte distribution width (RBC) [Ratio] 15.0 % High 11.6-14.6 [facility] Erythrocyte distribution wid th standard deviationOrdered By: Reji Paulie Sunshine on 06-11-2025 Erythrocyte distribution width (RBC) [Ratio] 45.9 fl High 35.1-43.9 [facility] Glomerular filtration rate ( GFR) estimation/1.73 sq m using serum, plasma, or whole bOrdered By: Reji eGorge on 06-11-2025 GFR/1.73 sq M.predicted among non-blacks MDRD (S/P/Bld) [Vol rate/Area] 71 mL/min/{1.73_m2} >60 [facility] Comment on above: mL/min/1.73m2 CKD-EP I Creatinine Equation (2020) H AND P Exam - [facility] 06-11-2025 H&P Exam - Hospitalist [facility] Medical Records Department [address] [place] [address] H P Exam - Hospitalist 06/11/25 0249 MR#: [id number] Acct: [id number] Name: JESUSITA ENGLAND Rep #: [id number] : 1970 55 From: Mauri Sampson PCP: VJ Maloney Status:REG ER Location: ED HPI - General General Date of Admission: 06/11/25 Date of Service: 06/11/25 Chief Complaint: Concern for recurrent lower extremity cellulitis HPI Narrative JESUSITA ENGLAND, is a 55 F who presented to [facility] ED on 06/11/2025 with concern for recurrent lower extremity cellulitis. Medical history is significant for super morbid obesity with BMI 91, chronic lower extremity lymphedema and recurrent bilateral lower extremity cellulitis. She was last hospitalized here in April 2024 for right leg cellulitis. CT scan then showed diffuse edema in the right posterior thigh. ID followed during the hospitalization. It appears she was treated with vancomycin and cefazolin for nonpurulent cellulitis while inpatient and then discharged home on a 10-day course of p.o. doxycycline and Keflex. Patient lives at home with her . States she has been doing fairly well recently. However, yesterday evening she began to have worsening lower extremity pain with redness and some associated shortness of breath. She notes that prior episodes have come on quickly like this, so she came in for further evaluation. On arrival to the ED she was hypertensive to the 170 systolic, sinus tachycardia to the 100s and febrile to 102.9 F. She was satting in the mid 90s on room air at rest. Labs notable for WBC count 16 with neutrophil predominance, lactate 2.4, creatinine 0.93 (baseline 0.7-0.8). Chest x-ray showed vascular indistinctness concerning for edema, was otherwise unremarkable. Patient was given doses of IV vancomycin and Zosyn as well as Tylenol. Fluid was held due to concern for pulmonary edema on chest x-ray. Hospitalist was then contacted for admission. I saw the patient at bedside in the ED, sister was present. Notably patient's sister is Maggie who is a rehabilitation case coordinator here. Patient was laying back comfortably in bed, conversing normally, in no acute distress. She did report some right lower extremity tenderness to palpation in the medial thigh. She otherwise felt somewhat cold and was asking for blankets. She denied any abdominal pain or discomfort. No other acute concerns currently. Will be admitted for further management. [facility] Medical History Hyperglycemia Failure of outpatient treatment Ascending aorta dilatation Abnormal echocardiogram IBS (irritable bowel syndrome) Depression Heel spur Osteoarthritis (arthritis due to wear and tear of joints) Asthma GERD without esophagitis Insomnia Anxiety Home Medications ???Medication ???Instructions ???Recorded ???Last Taken ???Type acetaminophen 500 mg capsule 1,000 mg PO Q6H PRN Pain 07/11/21 05/04/24 History ferrous sulfate 325 mg (65 mg 325 mg PO DAILY@1200 iron #30 tabs 08/01/21 05/04/24 Rx iron) tablet (FeroSul) venlafaxine 75 mg capsule,extended 225 mg (3 x 75 mg) PO DAILY 04/1905/04/24 Rx release 24 hr (Effexor XR) depression #90 caps lisinopril 10 mg tablet 10 mg PO DAILY blood pressure 07/0105/04/24 History nystatin 100,000 unit/gram topical 1 applic topical BID yeast 07/3105/04/24 Rx powder ([facility]) infection 30 days #60 grams cholecalciferol (vitamin D3) 1 tab PO DAILY supplement 04/04/24 05/04/24 History valacyclovir 1 gram tablet 2,000 mg PO BID PRN cold sore 08/23 Unknown History L.acidophil,salivari-Bif karolina 1 cap PO BID 10 days #20 caps 04/30 Unknown Rx bifidum-Strep thermoph 175 mg capsule [id number] -vit C 1 tab PO DAILY 06/11/25 Unknown Hi story albuterol sulfate 2.5 mg/3 mL 2.5 mg continuous nebulization Q4H 06/11/25 Unknown History (0.083 %) solution for nebulization PRN PRN dyspnea buspirone 5 mg tablet 5 mg PO BID 06/11/25 Unknown Histo ry calcium carbonate (Ally-Cornell 600 mg PO TID PRN dyspepsia Unknown History Heartburn Chew) cholestyramine (with sugar) 4 gram 2 - 4 ea PO DAILY 06/11/25 Unkno wn History oral powder multivitamin (Daily Multi-Vitamin 1 tab PO DAILY 06/11/25 Unknown H istory tablet) pantoprazole 20 mg tablet,delayed 20 mg PO DAILY 06/11/25 Unknown H istory release Allergy/AdvReac Type Severity Reaction Status Date / Time adhesive tape AdvReac Unknown Other Verified 04/04/24 19:07 Family History Mother Alzheimer's dementia Surgical History H/O foot surgery History of hip surgery History of cholecystectomy Soci (more content not included)... Normal [facility] Hematocrit Auto (Bld) [Volum e fraction]Ordered By: Reji George on 06-11-2025 Hematocrit (Bld) [Volume fraction] 39.1 % 37-47 [facility] Hemoglobin A1con 06-11-2025 HbA1c (Bld) [Mass fraction] 6.2 % High <=5.6 [facility] Comment on above: Result Comment: Norm al < 5.7 % Prediabetic 5.7 - 6.4 % Diabetic >or= 6.5 % Please note range changes. Performed By: #### L [id number], L501.5200 #### [facility] Laboratory [facility] [address] [place], [place], [id number] Hemoglobin A1c percentageOrd ered By: Mauri Sampson on 06-11-2025 HbA1c (Bld) [Mass fraction] 6.2 % High <5.7 [facility] Comment on above: Normal < 5.7 % Predi abetic 5.7 - 6.4 % Diabetic >or= 6.5 % Please note range changes. Hemoglobin measurementOrdere d By: Reji George on 06-11-2025 Hemoglobin (Bld) [Mass/Vol] 12.6 g/dL 12.0-15.0 [facility] Immature granulocytes/100 WB C Auto (Bld)Ordered By: Reji George on 06-11-2025 Immature granulocytes/100 WBC (Bld) 1.300 % High 0.0-0.9 [facility] Comment on above: IG% - Immature Granu locytes (promyelocytes, myelocytes and metamyelocytes) > 1% indicates that a LEFT SHIFT is Present. Influenza virus A and B and SARS-CoV-2 (COVID-19) and Respiratory syncytial virus RNAOrdered By: Reji George on 06-11-2025 SARS-CoV-2 (COVID-19) RNA CHANTELL+probe Ql (Unsp spec) [facility] International normalized rat io (INR) calculationOrdered By: Reji George on 06-11-2025 INR Coag (Bld) [Relative time] 1.0 {INR} [facility] Ketones Test strip Ql (U)Ord ered By: Reji George on 06-11-2025 Ketones Ql (U) Negative Negative [facility] L499.0042on 06-11-2025 Trop T High Sen 14 ng/L Normal <=14 [facility] Comment on above: Performed By: #### L 400.0001, M100.2200 #### [facility] [address] [place], [place], [address] L501.4021on 06-11-2025 Trop T High Sen 12 ng/L Normal <=14 [facility] Comment on above: Performed By: #### L 501.4021 #### [facility] [address] [facility] [place], [place], [address] L503.7505on 06-11-2025 Natriuretic peptide B (Bld) [Mass/Vol] 284 pg/mL Normal <=900 [facility] Comment on above: Result Comment: Hear t Failure Unlikely: < 300 pg/mL Heart Failure Likely < 50 Years: > 450 pg/mL 50-75 Years: > 900 pg/mL >75 Years: > 1800 pg/mL Performed By: #### L 743.5944 #### [facility] [address] [place], [place], [address] Laboratory - Chemistry and C hemistry - challengeOrdered By: Reji George on 06-11-2025 AST [Catalytic activity/Vol] 30 U/L <32 [facility] Lactic Acidon 06-11-2025 Lactate [Moles/Vol] 2.2 mmol/L Invalid Interpretation Code 0.0-2.0 [facility] Comment on above: Result Comment: Crit ical Result(s) Called at: 0453 by:??DELVIN HAVEN TO E FINK Results read back by same. Performed By: #### L 503.6005 #### [facility] [address] [place], [place], [address] Lactate [Moles/Vol] 2.4 mmol/L Invalid Interpretation Code 0.0-2.0 [facility] Comment on above: Order Comment: Y Result Comment: Crit ical Result(s) Called at: 0121 by:??DELVIN HAVEN TO TORREY ARGUETAR Results read back by same. Performed By: #### L 400.0001, M100.2200 #### [facility] [address] [place], [address] Lactic acid measurementOrder ed By: Reji George on 06-11-2025 Lactate [Moles/Vol] 2.2 mmol/L High 0.0-2.0 [facility] Comment on above: Critical Result(s) C alled at: 0453 by: DELVIN SALINASN TO Rachelle FINK Results read back by same. M100.678on 06-11-2025 M100.678 SARS-CoV-2 (COVID 19 ) Negative INFLUENZA A Negative INFLUENZA B Negative RSV PCR Negative Normal [facility] Comment on above: Performed By: #### L 501.4021 #### [facility] [address] [place], [address] MCV (mean corpuscular volume ) determinationOrdered By: Reji George on 06-11-2025 MCV (RBC) [Entitic vol] 85.0 fL 81-99 [facility] Mean corpuscular hemoglobin (MCH) determinationOrdered By: Reji George on 06-11-2025 MCH (RBC) [Entitic mass] 27.4 pg 27.0-32.0 [facility] Mean corpuscular hemoglobin concentration (MCHC) determinationOrdered By: Reji George on 06-11-2025 MCHC (RBC) [Mass/Vol] 32.2 g/dL 32-36 [facility] Mean platelet volume determi nationOrdered By: Reji Georeg on 06-11-2025 Platelet mean volume (Bld) [Entitic vol] 9.5 fL 6.2-12.0 [facility] Microscopic analysis of urin e for red blood cells (RBC)Ordered By: Reji George on 06-11-2025 Microscopic analysis of urine for red blood cells (RBC) 5-10 SEEN /hpf 0-5 [facility] Monocyte percentageOrdered B y: Reji George on 06-11-2025 Monocytes/100 WBC (Bld) 5.7 % 0-10 [facility] Mucus LM Ql (Urine sed)Order ed By: Reji George on 06-11-2025 Mucus Ql (Urine sed) 0 SEEN /hpf [facility] Natriuretic peptide.B prohor danielle N-Terminal [Mass/volume] in Serum or PlasmaOrdered By: Reji George on 06-11-2025 Natriuretic peptide.B prohormone N-Terminal [Mass/Vol] 284 pg/mL <900 [facility] Comment on above: Heart Failure Unlike ly: < 300 pg/mLHeart Failure Likely< 50 Years: > 450 pg/mL50-75 Years: > 900 pg/mL>75 Years: > 1800 pg/mL Neutrophil percentageOrdered By: Reji George on 06-11-2025 Neutrophils/100 WBC (Bld) 90.9 % High 47-70 [facility] Nitrite Test strip Ql (U)Ord ered By: Reji George on 06-11-2025 Nitrite Ql (U) Negative Negative [facility] No Panel InformationOrdered By: Reji George on 06-11-2025 Blood Gas Sample Site Not entered [facility] Blood Gas Specimen Type FRANKLYN [facility] Oxygen Delivery Device Cannula [facility] Nucleated red blood cell per centageOrdered By: Reji George on 06-11-2025 Nucleated RBC/100 WBC (Bld) [Ratio] 0 % 0-5 [facility] Partial Thromboplast Timeon 06-11-2025 aPTT Coag (Bld) [Time] 29.1 s Normal 24.1-36.2 [facility] Comment on above: Performed By: #### L 400.0001, #### [facility] [address] [place], [address] Platelet countOrdered By: Chase George on 06-11-2025 Platelets (Bld) [#/Vol] 163 10*3/uL 150-450 [facility] Potassium measurement (mass/ volume)Ordered By: Reji George on 06-11-2025 Potassium (Unsp spec) [Mass/Vol] 4.6 mmol/L 3.3-5.1 [facility] Protein Test strip Ql (U)Ord ered By: Reji George on 06-11-2025 Protein Ql (U) Negative Negative [facility] Prothrombin Time w/INRon INR Coag (PPP) [Relative time] 1.0 {INR} Normal [facility] Comment on above: Performed By: #### L 400.0001, #### [facility] [address] [place], [address] PT Coag (PPP) [Time] 13.6 s Normal 11.7-14.9 [facility] Comment on above: Performed By: #### L 400.0001, #### [facility] [address] [place], [address] Prothrombin timeOrdered By: Reji George on 06-11-2025 PT Coag (PPP) [Time] 13.6 s 11.7-14.9 [facility] RBC Auto (Bld) [#/Vol]Ordere d By: Reji George on 06-11-2025 RBC (Bld) [#/Vol] 4.60 10*6/uL 4.2-5.4 [facility] Serum creatinine measurement (mass/volume)Ordered By: Reji George on 06-11-2025 Creatinine [Mass/Vol] 0.93 mg/dL 0.70-1.20 [facility] Serum globulin measurementOr dered By: Reji George on 06-11-2025 Globulin (S) [Mass/Vol] 3.3 g/dL 2.2-4.2 [facility] Serum glucose measurement (m ass/volume)Ordered By: Reji George on 06-11-2025 Glucose [Mass/Vol] 130 mg/dL High 70-99 [facility] Serum or plasma alanine andrade otransferase (ALT) measurementOrdered By: Reji George on 06-11-2025 ALT [Catalytic activity/Vol] 24 U/L <35 [facility] Serum or plasma albumin herson urement (mass/volume)Ordered By: Reji Sunshine on 06-11-2025 Albumin [Mass/Vol] 4.0 g/dL 3.5-5.0 [facility] Serum or plasma albumin/glob ulin mass ratioOrdered By: Reji George on 06-11-2025 Albumin/Globulin [Mass ratio] 1.2 {ratio} 0.9-2.4 [facility] Serum or plasma alkaline rafael sphatase measurementOrdered By: Reji George on 06-11-2025 ALP [Catalytic activity/Vol] 88 U/L 35-104 [facility] Serum or plasma calcium herson urement (mass/volume)Ordered By: Reji Sunshine on 06-11-2025 Calcium [Mass/Vol] 9.4 mg/dL 7.6-11.0 [facility] Serum or plasma urea nitroge n measurement (mass/volume)Ordered By: Reji George on 06-11-2025 Urea nitrogen [Mass/Vol] 19 mg/dL 4-19 [facility] Sodium levelOrdered By: Balwinder George on 06-11-2025 Sodium [Moles/Vol] 134 mmol/L 133-145 [facility] Squamous epithelial cells de tection in urine sediment by light microscopyOrdered By: Reji George on 06-11-2025 Epithelial cells.squamous LM Ql (Urine sed) 5-10 SEEN /hpf 5-10 [facility] Total proteinOrdered By: Francisco Javier George on 06-11-2025 Protein [Mass/Vol] 7.3 g/dL 5.9-8.4 [facility] Troponin T.cardiac [Mass/vol ume] in Serum or Plasma by High sensitivity methodOrdered By: Reji George on 06-11-2025 Troponin T.cardiac High sensitivity method [Mass/Vol] 14 ng/L <14 [facility] Troponin T.cardiac High sensitivity method [Mass/Vol] 12 ng/L <14 [facility] Urinalysis, Completeon 06-11 EPI,SQUAMOUS 5-10 SEEN Normal 5-10 [facility] Comment on above: Order Comment: JAZZMINE TER SPECIMEN Performed By: #### L 400.0001, #### [facility] [address] [place], [address] RBC 5-10 SEEN Normal 0-5 [facility] Comment on above: Order Comment: JAZZMINE TER SPECIMEN Performed By: #### L 400.0001, #### [facility] [address] [place], [address] Clarity (U) Clear Normal Clear [facility] Comment on above: Order Comment: JAZZMINE TER SPECIMEN Performed By: #### L 400.0001, #### [facility] [address] [place], [address] Color (U) Straw Normal Yellow [facility] Comment on above: Order Comment: JAZZMINE TER SPECIMEN Performed By: #### L 400.0001, #### [facility] [address] [place], [address] BACTERIA 0 SEEN Normal None Seen [facility] Comment on above: Order Comment: JAZZMINE TER SPECIMEN Performed By: #### L 400.0001, #### [facility] [address] [place], [address] BILIRUBIN URINE Negative Normal Negative [facility] Comment on above: Order Comment: JAZZMINE TER SPECIMEN Performed By: #### L 400.0001, #### [facility] [address] [place], [address] GLUCOSE, UR Normal Normal Normal [facility] Comment on above: Order Comment: JAZZMINE TER SPECIMEN Performed By: #### L 400.0001, #### [facility] [address] [place], [address] KETONE UR Negative Normal Negative [facility] Comment on above: Order Comment: JAZZMINE TER SPECIMEN Performed By: #### L 400.0001, #### [facility] [address] [place], [address] LEUK ESTERASE Negative Normal Negative [facility] Comment on above: Order Comment: JAZZMINE TER SPECIMEN Performed By: #### L 400.0001, #### [facility] [address] [place], [address] Mucus Ql (Urine sed) 0 SEEN Normal [facility] Comment on above: Order Comment: JAZZMINE TER SPECIMEN Performed By: #### L 400.0001, #### [facility] [address] [place], [address] Nitrite Ql (U) Negative Normal Negative [facility] Comment on above: Order Comment: JAZZMINE TER SPECIMEN Performed By: #### L 400.0001, #### [facility] [address] [place], [address] OCCULT BLOOD-UR 10 /ul Abnormal Negative [facility] Comment on above: Order Comment: JAZZMINE TER SPECIMEN Performed By: #### L 400.0001, #### [facility] [address] [place], [address] pH UR 7.0 Normal 5.0 - 8.0 [facility] Comment on above: Order Comment: JAZZMINE TER SPECIMEN Performed By: #### L 400.0001, #### [facility] [address] [place], [address] PROT DIPSTX Negative Normal Negative [facility] Comment on above: Order Comment: JAZZMINE TER SPECIMEN Performed By: #### L 400.0001, #### [facility] [address] [place], [address] SP.GR. DIPSTX 1.010 Normal 1.002-1.030 [facility] Comment on above: Order Comment: JAZZMINE TER SPECIMEN Performed By: #### L 400.0001, #### [facility] [address] [place], [address] UROBILI Normal Normal Normal [facility] Comment on above: Order Comment: JAZZMINE TER SPECIMEN Performed By: #### L 400.0001, #### [facility] [address] [place], [address] WBC 0 SEEN Normal 0-5 [facility] Comment on above: Order Comment: JAZZMINE TER SPECIMEN Performed By: #### L 400.0001, #### [facility] [address] [place], [address] Urine clarityOrdered By: Francisco Javier George on 06-11-2025 Clarity (U) Clear Clear [facility] Urine color determinationOrd ered By: Reji George on 06-11-2025 Color (U) Straw Yellow [facility] Urine cultureOrdered By: Francisco Javier George on 06-11-2025 Bacteria identified Cx Nom (U) Culture exhibits no growth. [facility] Urine glucose detectionOrder ed By: Reji George on 06-11-2025 Glucose Ql (U) Normal mg/dl Normal [facility] Urine leukocyte esterase det ection by dipstickOrdered By: Reji George on 06-11-2025 Leukocyte esterase Test strip Ql (U) Negative Negative [facility] Urine pHOrdered By: Reji Orozco on 06-11-2025 pH (U) 7.0 [pH] 5.0 - 8.0 [facility] Urine sediment bacteria coun t by microscopy (number/high power field)Ordered By: Reji George on 06-11-2025 Bacteria LM.HPF (Urine sed) [#/Area] 0 /[HPF] None Seen [facility] Urine specific gravity measu rementOrdered By: Reji George on 06-11-2025 Specific gravity (U) [Rel density] 1.010 1.002-1.030 [facility] Urine urobilinogen measureme ntOrdered By: Reji George on 06-11-2025 Urobilinogen Ql (U) Normal mg/dl Normal [facility] Venous Blood Gason Blood Gas Type FRANKLYN Normal [facility] Comment on above: Performed By: #### L 400.2356, #### [facility] [address] [place], [place], [address] CO2 [Moles/Vol] 28 mmol/L Normal 23-33 [facility] Comment on above: Performed By: #### L 400.2356, #### [facility] [address] [place], [address] FI02 2.0 Normal [facility] Comment on above: Performed By: #### L 400.2356, #### [facility] [address] [place], [address] HCO3 (Bld) [Moles/Vol] 26 mmol/L Normal 22-26 [facility] Comment on above: Performed By: #### L 400.0001, #### [facility] [address] [place], [address] O2 Delivery Dev Cannula Normal [facility] Comment on above: Performed By: #### L 400.0001, #### [facility] [address] [place], [address] SITE Not entered Normal [facility] Comment on above: Performed By: #### L 400.0001, #### [facility] [address] [place], [address] VBG BE 2 mmol/L Normal -1.0-3.5 [facility] Comment on above: Performed By: #### L 400.0001, #### [facility] [address] [place], [address] VBG pCO2 41.7 mmHg Normal 41-51 [facility] Comment on above: Performed By: #### L 400.0001, #### [facility] [address] [place], [address] VBG pH 7.41 Normal 7.32-7.42 [facility] Comment on above: Performed By: #### L 400.0001, #### [facility] [address] [place], [address] VBG PO2 39 mmHg Normal 25-40 [facility] Comment on above: Performed By: #### L 400.0001, #### [facility] [address] [place], [place], [address] VBG SO2 74 High 50-70 [facility] Comment on above: Performed By: #### L 400.0001, M100.2200 #### [facility] [address] [place], [place], [address] Venous blood base excess sundar surementOrdered By: Reji George on 06-11-2025 Base excess Calc (BldV) [Moles/Vol] 2 mmol/L -1.0-3.5 [facility] Venous blood bicarbonate sundar surementOrdered By: Reji George on 06-11-2025 HCO3 (Bld) [Moles/Vol] 26 mmol/L 22-26 [facility] Venous blood oxygen saturati on measurementOrdered By: Reji George on 06-11-2025 Oxygen saturation in Blood 74 % High 50-70 [facility] Venous blood pH measurementO rdered By: Reji George on 06-11-2025 pH (BldV) 7.41 [pH] 7.32-7.42 [facility] Venous blood partial pressur e of carbon dioxide measurementOrdered By: Reji George on 06-11-2025 CO2 (BldV) [Partial pressure] 41.7 mm[Hg] 41-51 [facility] Venous blood partial pressur e of oxygen measurementOrdered By: Reji Sunshine on 06-11-2025 Oxygen (BldV) [Partial pressure] 39 mm[Hg] 25-40 [facility] White blood cell (WBC) count Ordered By: Reji George on 06-11-2025 WBC (Bld) [#/Vol] 16.1 10*3/uL High 4.4-11.0 [facility] White blood cell countOrdere d By: Reji George on 06-11-2025 White blood cell count 0 SEEN /hpf 0-5 [facility] 12 Lead EKGon 06-10-2025 12 Lead EKG [facility] Cardiovascular Services [address] [place] [address] 12 Lead EKG 06/11/25 0041 MR#: [id number] Acct: [id number] Name: JESUSITA ENGLAND Rep #: [id number] : 1970 55 From: Kevin Foster MD Attending Dr: Dr. Antoni Abdul DO Status: ADM IN Ordering Dr: Reji George DO Date: 5 Location: [facility] Sex: F C Admitted: 06/11/25 Test Reason : DYSRHYTHMIA Blood Pressure : */* mmHG Vent. 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 Reji George DO; Dr. Antoni Abdul DO; VJ Maloney Signed Normal [facility] Chest PA and Lateralon 06-10 Chest PA and Lateral [facility] Imaging Services [address] [place] [address] Chest PA and Lateral MR#: [id number] Acct: [id number] Name: JESUSITA ENGLAND Rep #: [id number] : 1970 F 55 From: Jeffrey Stephens MD PCP: VJ Maloney Status: REG ER Study: Chest PA and Lateral Date of Exam: 06/10/25 Exam# [id number] Ordering Dr: Reji George DO PROCEDURE: CHEST PA AND LATERAL 06/10/2025 REASON FOR EXAM: SHORTNESS OF BREATH TECHNIQUE: CHEST PA AND LATERAL COMPARISON: 08/17/2023. FINDINGS: The heart is enlarged. Vascular indistinctness suggestive of edema. No acute osseous abnormalities. RAD/Chest PA and Lateral IMPRESSION: As above. Reading Location: [place] [address] CC: Dr. Reji George DO; VJ Maloney Metabolic Specialist: Signed Normal [facility] LIZ SCREEN, IFA, W/REFL TITE R AND [...] indicated. For additional information, please refer to [email or web address] Messenger (MM)/faq/[email or web address] (This link is being provided for informational/ educational purposes only.) Performed By: #### 3 75, 5810, 29016, 41812, 4420, 85938, 351, %72869, 249, 6399, 809, 353, 905, 7832, 4942 #### [facility] [address] [address] Proofing Machine Operator: Lc Masters MD #### [id number] #### [facility]/[place] [address] [address] Proofing Machine Operator: Yuki Paul MD,PhD,NEPTALI ANTINUCLEAR ANTIBODIES TITER AND PATTERNon 11-16-2024 LIZ PATTERN Nuclear, Homogeneous Abnormal [facility] Comment on above: Result Comment: Homo geneous pattern is associated with systemic lupus erythematosus (SLE), drug-induced lupus and juvenile idiopathic arthritis. AC-1: Homogeneous International Consensus on LIZ Patterns (https://doi.org/10.1515/isck-2827-0788) Performed By: #### 5 463 #### [facility] [address], [address] [place] [address] Proofing Machine Operator: Lc Masters MD LIZ PATTERN Nuclear, Speckled Abnormal [facility] Comment on above: Result Comment: Spec kled pattern is associated with mixed connective tissue disease (MCTD), systemic lupus erythematosus (SLE), Sjogren's syndrome, dermatomyositis, and systemic sclerosis/polymyositis overlap. AC-2,4,5,29: Speckled International Consensus on LIZ Patterns (https://doi.org/10.1515/swfy-0896-4391) Performed By: #### 5 463 #### [facility] [address], [address] [place] [address] Proofing Machine Operator: Lc Masters MD LIZ TITER 1:160 High [facility] Comment on above: Result Comment: Refe rence Range <1:40 Negative 1:40-1:80 Low Antibody Level >1:80 Elevated Antibody Level Performed By: #### 5 463 #### [facility] [address], [address] [place] [address] Proofing Machine Operator: Lc Masters MD C-REACTIVE PROTEINon 024 CRP [Mass/Vol] 33.1 mg/L High <8.0 [facility] Comment on above: Performed By: #### 5 463 #### [facility] [place] [address] Proofing Machine Operator: Lc Masters MD CBC (INCLUDES DIFF/PLT)on Basophils (Bld) [#/Vol] 0.013 10*3/uL Normal 0-200 [facility] Comment on above: Performed By: #### 3 75, 5810, 82826, 04901, 4420, 09529, 351, %44481, 249, 6399, 809, 353, 905, 7832, 4942 #### [facility] [address], [address] [place] [address] Proofing Machine Operator: Lc Masters MD #### [id number] #### [facility], [address] [place], [place] [address] Proofing Machine Operator: Yuki Paul MD,PhD,NEPTALI Basophils/100 WBC (Bld) 0.2 % Normal [facility] Comment on above: Performed By: #### 3 75, 5810, 39151, 39871, 4420, 50247, 351, %24178, 249, 6399, 809, 353, 905, 7832, 4942 #### [facility] of [address] , [address] [place] [address] Proofing Machine Operator: Lc Masters MD #### [id number] #### [facility] [address] Proofing Machine Operator: Yuki Paul MD,PhD,NEPTALI Eosinophils (Bld) [#/Vol] 0 10*3/uL Low 15-500 [facility] Comment on above: Performed By: #### 3 75, 5810, 28001, 51667, 4420, 48413, 351, %28382, 249, 6399, 809, 353, 905, 7832, 4942 #### [facility] [place] [address] Proofing Machine Operator: Lc Masters MD #### [id number] #### [facility]/[place] [address] Proofing Machine Operator: Yuki Paul MD,PhD,NEPTALI Eosinophils/100 WBC (Bld) 0.0 % Normal [facility] Comment on above: Performed By: #### 3 75, 5810, 84154, 59504, 4420, 99439, 351, %91277, 249, 6399, 809, 353, 905, 7832, 4942 #### [facility] [place] [address] [address] [place] , [address] [place] [address] Proofing Machine Operator: Lc Masters MD #### [id number] #### [facility]/[place] [address] Proofing Machine Operator: Yuki Paul MD,PhD,NEPTALI Erythrocyte distribution width (RBC) [Ratio] 14.2 % Normal 11.0-15.0 [facility] Comment on above: Performed By: #### 3 75, 5810, 25081, 10906, 4420, 53005, 351, %12680, 249, 6399, 809, 353, 905, 7832, 4942 #### [facility] [place] [address] Proofing Machine Operator: Lc Masters MD #### 94630 #### [facility] [address] Proofing Machine Operator: Yuki Paul MD,PhD,NEPTALI Hematocrit (Bld) [Volume fraction] 41.1 % Normal 35.0-45.0 [facility] Comment on above: Performed By: #### 3 75, 5810, 26970, 95847, 4420, 86259, 351, %64339, 249, 6399, 809, 353, 905, 7832, 4942 #### [facility] [place] [address] Proofing Machine Operator: Lc Masters MD #### 76940 #### [facility]/[address] Proofing Machine Operator: Yuki Paul MD,PhD,NEPTALI Hemoglobin (Bld) [Mass/Vol] 13.0 g/dL Normal 11.7-15.5 [facility] Comment on above: Performed By: #### 3 75, 5810, 04882, 33038, 4420, 70953, 351, %08055, 249, 6399, 809, 353, 905, 7832, 4942 #### [facility] [place] [address] Proofing Machine Operator: Lc Masters MD #### [id number] #### [facility] [place] Proofing Machine Operator: Yuki Paul MD,PhD,NEPTALI Lymphocytes (Bld) [#/Vol] 1.133 10*3/uL Normal 850-3900 [facility] Comment on above: Performed By: #### 3 75, 5810, 75754, 12079, 4420, 45308, 351, %76690, 249, 6399, 809, 353, 905, 7832, 4942 #### [facility] [place] [address] Proofing Machine Operator: Lc Masters MD #### 28314 #### [facility], [address] [place] [address] Proofing Machine Operator: Yuki Paul MD,PhD,NEPTALI Lymphocytes/100 WBC (Bld) 17.7 % Normal [facility] Comment on above: Performed By: #### 3 75, 5810, 26513, 85264, 4420, 40393, 351, %45698, 249, 6399, 809, 353, 905, 7832, 4942 #### [facility] [place] [address] Proofing Machine Operator: Lc Masters MD #### [id number] #### [facility] [place] [id number] Proofing Machine Operator: Yuki Paul MD,PhD,NEPTALI MCH (RBC) [Entitic mass] 26.6 pg Low 27.0-33.0 [facility] Comment on above: Performed By: #### 3 75, 5810, 23511, 49568, 4420, 79835, 351, %33953, 249, 6399, 809, 353, 905, 7832, 4942 #### [facility] of [address], [address] [place] [address] Proofing Machine Operator: Lc Masters MD #### [id number] #### [facility]/[address] Proofing Machine Operator: Yuki Paul MD,PhD,NEPTALI MCHC (RBC) [Mass/Vol] 31.6 g/dL Low 32.0-36.[address] [facility] Comment on above: Result Comment: For adults, a slight decrease in the calculated MCHC value (in the range of 30 to 32 g/dL) is most likely not clinically significant; however, it should be interpreted with caution in correlation with other red cell parameters and the patient's clinical condition. Performed By: #### 3 75, 5810, 95127, 63982, 4420, 05518, 351, %94295, 249, 6399, 809, 353, 905, 7832, 4942 #### [facility] [address], [address] [place] [address] Proofing Machine Operator: Lc Masters MD #### [id number] #### [facility]/[place] [id number] Proofing Machine Operator: Yuki Paul MD,PhD,NEPTALI MCV (RBC) [Entitic vol] 84.0 fL Normal 80.0-100.0 [facility] Comment on above: Performed By: #### 3 75, 5810, 97251, 30381, 4420, 17884, 351, %67040, 249, 6399, 809, 353, 905, 7832, 4942 #### [facility] [address], [address] [place] [address] Proofing Machine Operator: Lc Masters MD #### [id number] #### [facility], [address] [place] [address] Proofing Machine Operator: Yuki Paul MD,PhD,NEPTALI Monocytes (Bld) [#/Vol] 0.41 10*3/uL Normal 200-950 [facility] Comment on above: Performed By: #### 3 75, 5810, 59969, 09756, 4420, 30061, 351, %65482, 249, 6399, 809, 353, 905, 7832, 4942 #### [facility] of [address], [address] [place] [address] Proofing Machine Operator: Lc Masters MD #### [id number] #### [facility], [address] [place] [id number] Proofing Machine Operator: Yuki Paul MD,PhD,NEPTALI Monocytes/100 WBC (Bld) 6.4 % Normal [facility] Comment on above: Performed By: #### 3 75, 5810, 56717, 63289, 4420, 45302, 351, %14608, 249, 6399, 809, 353, 905, 7832, 4942 #### [facility] of [place] [address] Proofing Machine Operator: Lc Masters MD #### 50845 #### [facility], [address] [place], [place] [address] Proofing Machine Operator: Yuki Paul MD,PhD,NEPTALI Neutrophils (Bld) [#/Vol] 4.845 10*3/uL Normal 9174-0432 [facility] Comment on above: Performed By: #### 3 75, 5810, 37192, 99001, 4420, 89709, 351, %31324, 249, 6399, 809, 353, 905, 7832, 4942 #### [facility] of [place] [address] Proofing Machine Operator: Lc Masters MD #### [id number] #### [facility], [address] [place] Proofing Machine Operator: Yuki Paul MD,PhD,NEPTALI Neutrophils/100 WBC (Bld) 75.7 % Normal [facility] Comment on above: Performed By: #### 3 75, 5810, 56382, 83022, 4420, 81071, 351, %38298, 249, 6399, 809, 353, 905, 7832, 4942 #### [facility] of [address], [address] [place] [address] Proofing Machine Operator: Lc Masters MD #### 75620 #### [facility], [address] [place] [address] Proofing Machine Operator: Yuki Paul MD,PhD,NEPTALI Platelet mean volume (Bld) [Entitic vol] 10.0 fL Normal 7.5-12.5 [facility] Comment on above: Performed By: #### 3 75, 5810, 81463, 99220, 4420, 46147, 351, %72147, 249, 6399, 809, 353, 905, 7832, 4942 #### [facility] of [address], [address] [place] [address] Proofing Machine Operator: Lc Masters MD #### [id number] #### [facility], [address] [place] [address] Proofing Machine Operator: Yuki Paul MD,PhD,NEPTALI Platelets (Bld) [#/Vol] 229 10*3/uL Normal 140-400 [facility] Comment on above: Performed By: #### 3 75, 5810, 82879, 94161, 4420, 35711, 351, %58378, 249, 6399, 809, 353, 905, 7832, 4942 #### [facility] of [place] [address] [address] [place] , [address] [place] [address] Proofing Machine Operator: Lc Masters MD #### [id number] #### [facility], [address] [place] [address] Proofing Machine Operator: Yuki Paul MD,PhD,NEPTALI RBC (Bld) [#/Vol] 4.89 10*6/uL Normal 3.80-5.10 [facility] Comment on above: Performed By: #### 3 75, 5810, 42481, 55009, 4420, 35824, 351, %23991, 249, 6399, 809, 353, 905, 7832, 4942 #### [facility] [address], [address] [place] [address] Proofing Machine Operator: Lc Masters MD #### [id number] #### [facility] [address] [place] [address] Proofing Machine Operator: Yuki Paul MD,PhD,NEPTALI WBC (Bld) [#/Vol] 6.4 10*3/uL Normal 3.8-10.8 [facility] Comment on above: Performed By: #### 3 75, 5810, 21194, 69906, 4420, 65122, 351, %67345, 249, 6399, 809, 353, 905, 7832, 4942 #### [facility] [place] [address] Proofing Machine Operator: Lc Masters MD #### 65258 #### [facility], [address] [place] [id number] Proofing Machine Operator: Yuki Paul MD,PhD,NEPTALI CHROMATIN (NUCLEOSOMAL) ANTI BODYon 11-16-2024 CHROMATIN (NUCLEOSOMAL) ANTIBODY <1.0 NEG Normal <1.0 NEG [facility] Comment on above: Performed By: #### 5 463 #### [facility] [place] [address] Proofing Machine Operator: Lc Masters MD COMPLEMENT COMPONENT C3Con 1 01-17-2024 COMPLEMENT COMPONENT C3C 181 mg/dL Normal 83-193 [facility] Comment on above: Performed By: #### 5 463 #### [facility] [address], [address] [place] [address] Proofing Machine Operator: Lc Masters MD COMPLEMENT COMPONENT C4Con 1 01-17-2024 COMPLEMENT COMPONENT C4C 27 mg/dL Normal 15-57 [facility] Comment on above: Performed By: #### 5 463 #### [facility] [address], [address] [place] [address] Proofing Machine Operator: Lc Masters MD CREATININEon 11-16-2024 Creatinine [Mass/Vol] 0.81 mg/dL Normal 0.50-1.[address] [facility] Comment on above: Order Comment: FASTI NG:YES FASTING: YES Performed By: #### 3 75, 5810, 88718, 68207, 4420, 24454, 351, %00329, 249, 6399, 809, 353, 905, 7832, 4942 #### [facility] [address], [address] [place] [address] Proofing Machine Operator: Lc Masters MD #### 13431 #### [facility], [address] [place] [address] Proofing Machine Operator: Yuki Paul MD,PhD,NEPTALI GFR/1.73 sq M.predicted among non-blacks MDRD (S/P/Bld) [Vol rate/Area] 85 mL/min/{1.73_m2} Normal > OR = 60 [facility] Comment on above: Order Comment: FASTI NG:YES FASTING: YES Performed By: #### 3 75, 5810, 86207, 59835, 4420, 92340, 351, %14620, 249, 6399, 809, 353, 905, 7832, 4942 #### [facility] [address], [address] [place], [place] [address] Proofing Machine Operator: Lc Masters MD #### [id number] #### [facility], [address] [place] Proofing Machine Operator: Yuki Paul MD,PhD,NEPTALI DNA (DS) ANTIBODY, CRITHIDIA , IFA W/REFLon 11-16-2024 DNA AB (DS) CRITHIDIA,IFA Negative Normal NEGATIVE [facility] Comment on above: Performed By: #### 3 75, 5810, 88674, 76210, 4420, 69356, 351, %91184, 249, 6399, 809, 353, 905, 7832, 4942 #### [facility] [address], [address] [place] [address] Proofing Machine Operator: Lc Masters MD #### 23824 #### [facility] [address] [place] [address] Proofing Machine Operator: Yuki Paul MD,PhD,NEPTALI HEPATIC FUNCTION PANELon Albumin [Mass/Vol] 4.3 g/dL Normal 3.6-5.1 [facility] Comment on above: Performed By: #### 3 75, 5810, 82043, 07216, 4420, 81717, 351, %40747, 249, 6399, 809, 353, 905, 7832, 4942 #### [facility] [place] [address] Proofing Machine Operator: Lc Masters MD #### 84000 #### [facility], [address] [place] [address] Proofing Machine Operator: Yuki Paul MD,PhD,NEPTALI Albumin/Globulin [Mass ratio] 1.3 {ratio} Normal 1.0-2.5 [facility] Comment on above: Performed By: #### 3 75, 5810, 51250, 82498, 4420, 08721, 351, %85281, 249, 6399, 809, 353, 905, 7832, 4942 #### [facility] [address], [address] [place] [address] Proofing Machine Operator: Lc Masters MD #### 32594 #### [facility] [place] [address] Proofing Machine Operator: Yuki Paul MD,PhD,NEPTALI ALP [Catalytic activity/Vol] 76 U/L Normal 37-153 [facility] Comment on above: Performed By: #### 3 75, 5810, 70496, 08913, 4420, 24248, 351, %50410, 249, 6399, 809, 353, 905, 7832, 4942 #### [facility] [address], [address] [place] [address] Proofing Machine Operator: Lc Masters MD #### 39614 #### [facility] [place] [address] Proofing Machine Operator: Yuki Paul MD,PhD,NEPTALI ALT [Catalytic activity/Vol] 18 U/L Normal 6-29 [facility] Comment on above: Performed By: #### 3 75, 5810, 53393, 57279, 4420, 58371, 351, %43506, 249, 6399, 809, 353, 905, 7832, 4942 #### [facility] [address], [address] [place] [address] Proofing Machine Operator: Lc Masters MD #### 95325 #### [facility] [place] [address] Proofing Machine Operator: Yuki Paul MD,PhD,NEPTALI AST [Catalytic activity/Vol] 18 U/L Normal 10-35 [facility] Comment on above: Performed By: #### 3 75, 5810, 06257, 66061, 4420, 77805, 351, %45081, 249, 6399, 809, 353, 905, 7832, 4942 #### [facility] [address], [address] [place] [address] Proofing Machine Operator: Lc Masters MD #### 72749 #### [facility], [address] [place], [place] [address] Proofing Machine Operator: Yuki Paul MD,PhD,NEPTALI Bilirubin [Mass/Vol] 0.5 mg/dL Normal 0.2-1.2 [facility] Comment on above: Performed By: #### 3 75, 5810, 29443, 09087, 4420, 85752, 351, %10975, 249, 6399, 809, 353, 905, 7832, 4942 #### [facility] [address], [address] [place] [address] Proofing Machine Operator: Lc Masters MD #### 05600 #### [facility], [address] [place], [place] [address] Proofing Machine Operator: Yuki Paul MD,PhD,NEPTALI BILIRUBIN, INDIRECT 0.4 mg/dL (calc) Normal 0.2-1.2 [facility] Comment on above: Performed By: #### 3 75, 5810, 31942, 99962, 4420, 08625, 351, %92628, 249, 6399, 809, 353, 905, 7832, 4942 #### [facility] [address], [address] [place] [address] Proofing Machine Operator: Lc Masters MD #### [id number] #### [facility] [place] [id number] Proofing Machine Operator: Yuki Paul MD,PhD,NEPTALI Bilirubin.indirect [Mass/Vol] 0.1 mg/dL Normal < OR = 0.2 [facility] Comment on above: Performed By: #### 3 75, 5810, 30458, 34179, 4420, 82969, 351, %73776, 249, 6399, 809, 353, 905, 7832, 4942 #### [facility] [address], [address] [place] [address] Proofing Machine Operator: Lc Masters MD #### [id number] #### [facility], [address] [address] Proofing Machine Operator: Yuki Paul MD,PhD,NEPTALI Globulin (S) [Mass/Vol] 3.2 g/dL Normal 1.9-3.7 [facility] Comment on above: Performed By: #### 3 75, 5810, 81361, 86798, 4420, 94860, 351, %80793, 249, 6399, 809, 353, 905, 7832, 4942 #### [facility] [place] [address] Proofing Machine Operator: Lc Masters MD #### 69376 #### [facility] [address] [place] [address] Proofing Machine Operator: Yuki Paul MD,PhD,NEPTALI Protein [Mass/Vol] 7.5 g/dL Normal 6.1-8.1 [facility] Comment on above: Performed By: #### 3 75, 5810, 00211, 12874, 4420, 30020, 351, %07588, 249, 6399, 809, 353, 905, 7832, 4942 #### [facility] [place] [address] Proofing Machine Operator: Lc Masters MD #### [id number] #### [facility], [address] [address] Proofing Machine Operator: Yuki Paul MD,PhD,NEPTALI NEYDA-1 ANTIBODYon 11-16-2024 NEYDA-1 ANTIBODY <1.0 NEG Normal <1.0 NEG [facility] Comment on above: Performed By: #### 5 463 #### [facility] [address] [place] [address] Proofing Machine Operator: Lc Masters MD SCL-70 ANTIBODYon 11-16-2024 SCL-70 ANTIBODY <1.0 NEG Normal <1.0 NEG [facility] Comment on above: Performed By: #### 5 463 #### [facility] [place] [address] [employer]ing Machine Operator: Lc Masters MD SED RATE BY MODIFIED WESTERG RENon 11-16-2024 SED RATE BY MODIFIED WESTERGREN 33 mm/h High < OR = 30 [facility] Comment on above: Performed By: #### 3 75, 5810, 92451, 94582, 4420, 07270, 351, %20700, 249, 6399, 809, 353, 905, 7832, 4942 #### [facility] [place] [address] Proofing Machine Operator: Lc Masters MD #### [id number] #### [facility], [address] [place] [address] Proofing Machine Operator: Yuki Paul MD,PhD,NEPTALI SJOGREN'S ANTIBODIES (SS-A,S S-B)on 11-16-2024 SJOGREN'S ANTIBODY (SS-A) <1.0 NEG Normal <1.0 NEG [facility] Comment on above: Performed By: #### 5 463 #### [facility] [place] [address] [employer]ing Machine Operator: Lc Masters MD SJOGREN'S ANTIBODY (SS-B) <1.0 NEG Normal <1.0 NEG [facility] Comment on above: Performed By: #### 5 463 #### [facility] [place] [address] Proofing Machine Operator: Lc Masters MD SM/MILLER ROD MILL ANTIBODYon 11-16-2024 SM/MILLER ROD MILL ANTIBODY <1.0 NEG Normal <1.0 NEG [facility] Comment on above: Performed By: #### 5 463 #### [facility] [place] [address] Proofing Machine Operator: Lc Masters MD URIC ACIDon 11-16-2024 Urate [Mass/Vol] 6.5 mg/dL Normal 2.5-7.0 [facility] Comment on above: Result Comment: Ther apeutic target for gout patients: <6.0 mg/dL Performed By: #### 3 75, 5810, 426[address], 80979, 4420, 98994, 351, %80812, 249, 6399, 809, 353, 905, 7832, 4942 #### [facility] [place] [address] Proofing Machine Operator: Lc Masters MD #### [id number] #### [facility], [address] [place] [address] Proofing Machine Operator: Yuki Paul MD,PhD,NEPTALI PROTEIN, TOTAL W/CREAT, RAND OM URINEon 11-12-2024 Creatinine (U) [Mass/Vol] 99 mg/dL Normal 20-275 [facility] Comment on above: Performed By: #### 5 463 #### [facility] of [address], [address] [place] [address] Proofing Machine Operator: Lc Masters MD Protein (U) [Mass/Vol] 9 mg/dL Normal 5-24 [facility] Comment on above: Performed By: #### 5 463 #### [facility] [place] [address] Proofing Machine Operator: Lc Masters MD PROTEIN/CREATININE RATIO 91 mg/g creat Normal 24-184 [facility] Comment on above: Performed By: #### 5 463 #### [facility] [place] [address] Proofing Machine Operator: Lc Masters MD PROTEIN/CREATININE RATIO 0.091 mg/mg creat Normal 0.024-0.184 [facility] Comment on above: Performed By: #### 5 463 #### [facility] of [address], [address] [place] [address] Proofing Machine Operator: Lc Masters MD URINALYSIS, COMPLETEon 11-12 Appearance (U) CLEAR Normal CLEAR [facility] Comment on above: Order Comment: FASTI NG:YES FASTING: YES Performed By: #### 5 463 #### [facility] of [address], [address] [place] [address] Proofing Machine Operator: Lc Masters MD BACTERIA NONE SEEN Normal NONE SEEN [facility] Comment on above: Order Comment: FASTI NG:YES FASTING: YES Performed By: #### 5 463 #### [facility] [place] [address] Proofing Machine Operator: Lc Masters MD Bilirubin Ql (U) Negative Normal NEGATIVE [facility] Comment on above: Order Comment: FASTI NG:YES FASTING: YES Performed By: #### 5 463 #### [facility] of [address], [address] [place] [address] Proofing Machine Operator: Lc Masters MD Color (U) YELLOW Normal YELLOW [facility] Comment on above: Order Comment: FASTI NG:YES FASTING: YES Performed By: #### 5 463 #### [facility] of [address], [address] [place] [address] Proofing Machine Operator: Lc Masters MD Glucose Ql (U) Negative Normal NEGATIVE [facility] Comment on above: Order Comment: FASTI NG:YES FASTING: YES Performed By: #### 5 463 #### [facility] of [address], [address] [place] [address] Proofing Machine Operator: Lc Masters MD HYALINE CAST NONE SEEN Normal NONE SEEN [facility] Comment on above: Order Comment: FASTI NG:YES FASTING: YES Performed By: #### 5 463 #### [facility] of [address], [address] [place] [address] Proofing Machine Operator: Lc Masters MD Ketones Ql (U) Negative Normal NEGATIVE [facility] Comment on above: Order Comment: FASTI NG:YES FASTING: YES Performed By: #### 5 463 #### [facility] of [address], [address] [place] [address] Proofing Machine Operator: Lc Masters MD Leukocyte esterase Test strip Ql (U) Negative Normal NEGATIVE [facility] Comment on above: Order Comment: FASTI NG:YES FASTING: YES Performed By: #### 5 463 #### [facility] [address], [address] [place] [address] Proofing Machine Operator: Lc Masters MD Nitrite Ql (U) Negative Normal NEGATIVE [facility] Comment on above: Order Comment: FASTI NG:YES FASTING: YES Performed By: #### 5 463 #### [facility] [address], [address] [place] [address] Proofing Machine Operator: Lc Masters MD OCCULT BLOOD Negative Normal NEGATIVE [facility] Comment on above: Order Comment: FASTI NG:YES FASTING: YES Performed By: #### 5 463 #### [facility] [address], [address] [place] [address] Proofing Machine Operator: Lc Masters MD pH (U) 5.5 [pH] Normal 5.0-8.0 [facility] Comment on above: Order Comment: FASTI NG:YES FASTING: YES Performed By: #### 5 463 #### [facility] [address], [address] [place] [address] Proofing Machine Operator: Lc Masters MD Protein Ql (U) Negative Normal NEGATIVE [facility] Comment on above: Order Comment: FASTI NG:YES FASTING: YES Performed By: #### 5 463 #### [facility] of [address], [address] [place] [address] Proofing Machine Operator: Lc Masters MD RBC NONE SEEN Normal < OR = 2 [facility] Comment on above: Order Comment: FASTI NG:YES FASTING: YES Performed By: #### 5 463 #### [facility] [address], [address] [place] [address] Proofing Machine Operator: Lc Masters MD Specific gravity (U) [Rel density] 1.020 Normal 1.001-1.035 [facility] Comment on above: Order Comment: FASTI NG:YES FASTING: YES Performed By: #### 5 463 #### [facility] [address], [address] [place] [address] Proofing Machine Operator: Lc Masters MD SQUAMOUS EPITHELIAL CELLS 0-5 Normal < OR = 5 [facility] Comment on above: Order Comment: FASTI NG:YES FASTING: YES Performed By: #### 5 463 #### [facility] [address], [address] [place] [address] Proofing Machine Operator: Lc Masters MD WBC NONE SEEN Normal < OR = 5 [facility] Comment on above: Order Comment: FASTI NG:YES FASTING: YES Performed By: #### 5 463 #### [facility] [address], [address] [place] [address] Proofing Machine Operator: Lc Masters MD Laboratory - Chemistry and C hemistry - challengeon 06-24-2024 Albumin [Mass/Vol] 4.2 g/dL Normal 3.6 - 5.1 g/dL [place] [employer] [facility], [facility].; [employer] Albumin/Globulin [Mass ratio] 1.2 {ratio} Normal 1.0 - 2.5 [place] [employer] [facility], [facility].; [employer] ALP [Catalytic activity/Vol] 66 U/L Normal 37 - 153 U/L [employer], [facility].; [employer] ALT [Catalytic activity/Vol] 13 U/L Normal 6 - 29 U/L [employer], [facility].; [employer] AST [Catalytic activity/Vol] 14 U/L Normal 10 - 35 U/L [employer], [facility].; [employer] Bilirubin [Mass/Vol] 0.5 mg/dL Normal 0.2 - 1 .2 mg/dL [employer], [facility].; [employer] Calcium [Mass/Vol] 9.5 mg/dL Normal 8.6 - 10. 4 mg/dL [facility]. Chloride [Moles/Vol] 102 mmol/L Normal 98 - 11 0 mmol/L [facility].; [facility], [facility]. Cholesterol [Mass/Vol] 183 mg/dL Normal [facility].; [facility], [facility] Cholesterol in HDL [Mass/Vol] 53 mg/dL Normal [facility].; [facility], [facility] Cholesterol in LDL [Mass/Vol] 105 mg/dL Abnormal [facility].; [facility], [facility]. CO2 [Moles/Vol] 27 mmol/L Normal 20 - 32 mmol/L [facility].; [facility], [facility]. Creatinine [Mass/Vol] 0.80 mg/dL Normal 0.50 - 1.03 mg/dL [facility].; [facility], [facility]. GFR/1.73 sq M.predicted among non-blacks MDRD (S/P/Bld) [Vol rate/Area] 86 mL/min/{1.73_m2} Normal [facility].; [facility], [facility]. Glucose [Mass/Vol] 95 mg/dL Normal 65 - 99 mg/dL [facility], [facility].; [facility], [facility]. Potassium [Moles/Vol] 4.9 mmol/L Normal 3.5 - 5.3 mmol/L [facility], [facility].; [place] [employer] [facility], [facility]. Protein [Mass/Vol] 7.6 g/dL Normal 6.1 - 8.1 g/dL [facility], [facility].; [place] [employer] [facility], [facility]. Sodium [Moles/Vol] 138 mmol/L Normal 135 - 146 mmol/L [facility], [facility].; [place] [employer] [facility], [facility]. Triglyceride [Mass/Vol] 136 mg/dL Normal [facility].; [place] [employer] [facility], [facility]. Urea nitrogen [Mass/Vol] 17 mg/dL Normal 7 - 25 mg/dL [facility], [facility].; [place] [employer] [facility], [facility] No Panel Informationon 06-24 BUN/CREATININE RATIO SEE NOTE: Normal 6 - 22 [facility].; [facility], [facility]. CHOL/HDLC RATIO 3.5 Normal [facility]; [facility] GLOBULIN 3.4 Normal 1.9 - 3.7 [facility]; [facility] NON HDL CHOLESTEROL 130 Abnormal [facility].; [facility] Laboratory - Chemistry and C hemistry - challengeon 06-13-2024 Albumin [Mass/Vol] 4.5 g/dL Normal 3.6 - 5.1 g/dL [facility]; [facility] Albumin/Globulin [Mass ratio] 1.2 {ratio} Normal 1.0 - 2.5 [facility]; [facility] ALP [Catalytic activity/Vol] 76 U/L Normal 37 - 153 U/L [facility].; [place] [employer] [facility], [facility]. ALT [Catalytic activity/Vol] 12 U/L Normal 6 - 29 U/L [facility].; [facility]. AST [Catalytic activity/Vol] 15 U/L Normal 10 - 35 U/L [facility].; [place] [facility] [facility]. Bilirubin [Mass/Vol] 0.4 mg/dL Normal 0.2 - 1 .2 mg/dL [facility].; [place] [employer] [facility], [facility]. Calcium [Mass/Vol] 10.0 mg/dL Normal 8.6 - 10. 4 mg/dL [facility].; [place] [employer] [facility], [facility]. Chloride [Moles/Vol] 101 mmol/L Normal 98 - 11 0 mmol/L [facility].; [facility]. CO2 [Moles/Vol] 25 mmol/L Normal 20 - 32 mmol/L [facility].; [place] [facility] [facility]. Cobalamin (Vitamin B12) [Mass/Vol] 339 pg/mL Normal 200 - 1100 pg/mL [facility].; [place] [employer] [facility], [facility]. Creatinine [Mass/Vol] 0.89 mg/dL Normal 0.50 - 1.03 mg/dL [facility], [facility].; [place] [employer] [facility], [facility]. CRP [Mass/Vol] 32.4 mg/L Abnormal [facility]; [facility] GFR/1.73 sq M.predicted among non-blacks MDRD (S/P/Bld) [Vol rate/Area] 76 mL/min/{1.73_m2} Normal [facility].; [facility], [facility]. Glucose [Mass/Vol] 110 mg/dL Abnormal 65 - 99 mg/dL [facility].; [facility], [facility] Potassium [Moles/Vol] 4.7 mmol/L Normal 3.5 - 5.3 mmol/L [facility].; [facility]. Protein [Mass/Vol] 8.2 g/dL Abnormal 6.1 - 8.1 g/dL [facility].; [place] [employer] [facility], [facility]. Sodium [Moles/Vol] 136 mmol/L Normal 135 - 146 mmol/L [facility].; [place] [employer] [facility], [facility]. Urate [Mass/Vol] 6.9 mg/dL Normal 2.5 - 7.0 mg/dL [facility].; [place] [facility] Urea nitrogen [Mass/Vol] 21 mg/dL Normal 7 - 25 mg/dL [facility].; [place] [employer]. Laboratory - Hematology and Cell countson 06-13-2024 Basophils (Bld) [#/Vol] 0 10*3/uL Normal 0 - 200 {cells/uL} [facility].; [place] [employer] [facility], [facility]. Basophils/100 WBC (Bld) 0.0 % Normal [facility].; [facility]. Eosinophils (Bld) [#/Vol] 0 10*3/uL Abnormal 15 - 500 {cells/uL} [facility].; [place] [employer], [facility]. Eosinophils/100 WBC (Bld) 0.0 % Normal [facility].; [place] [facility], [facility]. Erythrocyte distribution width (RBC) [Ratio] 15.1 % Abnormal 11.0 - 15.0 % [facility], [facility].; [place] [employer], [facility]. HbA1c (Bld) [Mass fraction] 6.1 % Abnormal [facility].; [facility], [facility]. Hematocrit (Bld) [Volume fraction] 41.6 % Normal 35.0 - 45.0 % [facility].; [facility], [facility] Hemoglobin (Bld) [Mass/Vol] 13.4 g/dL Normal 11.7 - 15.5 g/dL [facility].; [facility], [facility] Lymphocytes (Bld) [#/Vol] 1.346 10*3/uL Normal 850 - 3900 {cells/uL} [facility].; [facility] Lymphocytes/100 WBC (Bld) 19.5 % Normal [facility].; [facility], [facility]. MCH (RBC) [Entitic mass] 27.7 pg Normal 27.0 - 33.0 pg [facility].; [facility], [facility]. MCHC (RBC) [Mass/Vol] 32.2 g/dL Normal 32.0 - 36.0 g/dL [facility], [facility].; [facility], [facility]. MCV (RBC) [Entitic vol] 86.1 fL Normal 80.0 - 100.0 fL [facility].; [facility], [facility]. Monocytes (Bld) [#/Vol] 0.538 10*3/uL Normal 200 - 950 {cells/uL} [facility].; [facility], [facility]. Monocytes/100 WBC (Bld) 7.8 % Normal [facility].; [facility], [facility]. Neutrophils (Bld) [#/Vol] 5.016 10*3/uL Normal 1500 - 7800 {cells/uL} [facility].; [facility], [facility]. Neutrophils/100 WBC (Bld) 72.7 % Normal [facility].; [facility], [facility]. Platelet mean volume (Bld) [Entitic vol] 10.0 fL Normal 7.5 - 12.5 fL [facility].; [facility], [facility]. Platelets (Bld) [#/Vol] 243 10*3/uL Normal 140 - 400 [facility].; [facility], [facility]. RBC (Bld) [#/Vol] 4.83 10*6/uL Normal 3.80 - 5.1 0 {Million/uL} [facility] WBC (Bld) [#/Vol] 6.9 10*3/uL Normal 3.8 - 10.8 [facility]; [facility] No Panel Informationon 06-13 LIZ PATTERN Nuclear, Homogeneous Abnormal [facility]; [facility] Work Phone: LIZ PATTERN Nuclear, Speckled Abnormal [facility]; [facility] Work Phone: LIZ SCREEN, IFA Positive Abnormal [facility]; [facility] LIZ TITER 1:320 Abnormal [facility]; [facility] Work Phone: BUN/CREATININE RATIO SEE NOTE: Normal 6 - 22 [facility]; [place] [employer] [facility] GLOBULIN 3.7 Normal 1.9 - 3.7 [facility]; [facility] SED RATE BY MODIFIED WESTERGREN 31 mm/h Abnormal [facility]; [place] [facility] [facility] TSH W/REFLEX TO FT4 2.78 {mIU/L} Normal 0.40 - 4 .50 {mIU/L} [facility]; [place] [employer] [facility]. Absolute lymphocyte countOrd ered By: Rubin Hadley on 04-07-2024 Lymphocytes Auto (Unsp spec) [#/Vol] 1.06 10*3/uL 0.83-4.51 [facility] Automated lymphocyte count a s percentage of total leukocytesOrdered By: Rubin Hadley on 04-07-2024 Lymphocytes/100 WBC Auto (Unsp spec) 15.1 % 19-41 [facility] Basophil percentageOrdered B y: Rubin Hadley on 04-07-2024 Basophils/100 WBC (Bld) 0.4 % 0-1 [facility] Chloride [Moles/Vol] 103 mmol/L 98-107 [facility] Eosinophils/100 WBC (Bld) 0.0 % 0-5 [facility] Glucose [Mass/Vol] 115 mg/dL 74-106 [facility] Comment on above: Fasting Glucose resu lt from 100 to 125 mg/dL suggests IMPAIRED HOMEOSTASIS per A.D.A. criteria. Hemoglobin (Bld) [Mass/Vol] 12.7 g/dL 12.0-15.0 [facility] Monocytes/100 WBC (Bld) 11.4 % 0-10 [facility] Neutrophils (Bld) [#/Vol] 5.0 10*3/uL 2.0-7.7 [facility] Neutrophils/100 WBC (Bld) 71.7 % 47-70 [facility] Potassium [Moles/Vol] 4.2 mmol/L 3.5-5.1 [facility] Sodium [Moles/Vol] 135 mmol/L 136-145 [facility] WBC (Bld) [#/Vol] 7.0 10*3/uL 4.4-11.0 [facility] Determination of erythrocyte mean corpuscular volume (MCV)Ordered By: Rubin Hadley on 04-07-2024 MCV (RBC) [Entitic vol] 85.3 fL 81-99 [facility] Erythrocyte distribution wid th ratioOrdered By: Rubin Hadley on 04-07-2024 Erythrocyte distribution width (RBC) [Ratio] 15.1 % 11.6-14.6 [facility] Erythrocyte distribution wid th standard deviationOrdered By: Rubin Hadley on 04-07-2024 Erythrocyte distribution width (RBC) [Entitic vol] 47.2 fL 35.1-43.9 [facility] Hematocrit Auto (Bld) [Volum e fraction]Ordered By: Rubin Hadley on 04-07-2024 Hematocrit (Bld) [Volume fraction] 40.7 % 37-47 [facility] Immature granulocytes/100 WB C Auto (Bld)Ordered By: Rubin Hadley on 04-07-2024 Immature granulocytes/100 WBC (Bld) 1.400 % 0.0-0.9 [facility] Comment on above: IG% - Immature Granu locytes (promyelocytes, myelocytes and metamyelocytes) > 1% indicates that a LEFT SHIFT is Present. Laboratory - Chemistry and C hemistry - challengeOrdered By: Rubin Hadley on 04-07-2024 CO2 [Moles/Vol] 27.0 mmol/L 21.0-32.0 [facility] Urea nitrogen/Creatinine [Mass ratio] 15.7 mg/mg 10-20 [facility] Laboratory - Hematology and Cell countsOrdered By: Rubin Hadley on 04-07-2024 MCH (RBC) [Entitic mass] 26.6 pg 27.0-32.0 [facility] MCHC (RBC) [Mass/Vol] 31.2 g/dL 32-36 [facility] Nucleated RBC/100 WBC (Bld) [Ratio] 0 % 0-5 [facility] Platelet mean volume (Bld) [Entitic vol] 9.8 fL 6.2-12.0 [facility] Platelets (Bld) [#/Vol] 191 10*3/uL 150-450 [facility] No Panel InformationOrdered By: Rubin Hadley on 04-07-2024 Methicillin-Resist S.aureus DNA PCR Negative Negative [facility] Estimated Creatinine Clearance Calc 139.37 ml/min [facility] Estimated GFR (MDRD) Amer 84 mL/min >60 [facility] Comment on above: GFR Calc Estimated GFR (MDRD) Non-Af Amer 69 mL/min >60 [facility] Comment on above: Non- GFR Calc RBC Auto (Bld) [#/Vol]Ordere d By: Rubin Hadley on 04-07-2024 RBC (Bld) [#/Vol] 4.77 10*6/uL 4.2-5.4 [facility] Serum or plasma calcium herson urement (mass/volume)Ordered By: Rubin Hadley on 04-07-2024 Calcium [Mass/Vol] 9.6 mg/dL 8.5-10.1 [facility] Serum or plasma creatinine m easurement (mass/volume)Ordered By: Rubin Hadley on 04-07-2024 Creatinine [Mass/Vol] 0.89 mg/dL 0.55-1.02 [facility] Comment on above: The validity of the calculated GFR & GFRAA in patients over 70 years has not been determined. Clinical correlation is essential. Serum or plasma urea nitroge n measurement (mass/volume)Ordered By: Rubin Hadley on 04-07-2024 Urea nitrogen [Mass/Vol] 14 mg/dL 7-18 [facility] Thin prep Papanicolaou smear with manual screeningOrdered By: Rubin aHdley on 04-07-2024 Thin prep Papanicolaou smear with manual screening 5 5-15 [facility] Serum or plasma trough vanco mycin levelOrdered By: Calderon Swanson on 04-05-2024 Vancomycin trough [Mass/Vol] 18.5 ug/mL 5.0-15.0 [facility] Comment on above: VANCOMYCIN STANDARED DRUG THERAPY TROUGH LEVEL: 5.0 - 15.0 mg/L VANCOMYCIN HIGH INTENSITY THERAPY TROUGH LEVEL: 15.0 - 20.0 mg/L High Intensity therapy recommended for serious lifethreatening infections include:- Romuizckid-Eytownnjuwtx-Ckoompgyu (Ventilator/Healtcare Associated)-Sepsis PLEASE CONTACT PHARMACY SERVICES (#[id number]) FOR INTERPRETATIONOF RESULTS. Absolute lymphocyte countOrd ered By: Gian Villanueva on 04-04-2024 Lymphocytes Auto (Unsp spec) [#/Vol] 0.41 10*3/uL 0.83-4.51 [facility] Automated lymphocyte count a s percentage of total leukocytesOrdered By: Gian Villanueva on 04-04-2024 Lymphocytes/100 WBC Auto (Unsp spec) 2.6 % 19-41 [facility] Basophil percentageOrdered B y: Gian Villanueva on 04-04-2024 Basophils/100 WBC (Bld) 0.1 % 0-1 [facility] Bilirubin [Mass/Vol] 0.60 mg/dL 0.20-1.00 [facility] Comment on above: For patients on eltr ombopag therapy, use of Dimension Selmer TBIL is not recommended. Chloride [Moles/Vol] 101 mmol/L 98-107 [facility] Eosinophils/100 WBC (Bld) 0.0 % 0-5 [facility] Glucose [Mass/Vol] 113 mg/dL 74-106 [facility] Comment on above: Fasting Glucose resu lt from 100 to 125 mg/dL suggests IMPAIRED HOMEOSTASIS per A.D.A. criteria. Hemoglobin (Bld) [Mass/Vol] 12.4 g/dL 12.0-15.0 [facility] Lactate [Moles/Vol] 1.4 mmol/L 0.4-2.0 [facility] Monocytes/100 WBC (Bld) 5.0 % 0-10 [facility] Neutrophils (Bld) [#/Vol] 14.3 10*3/uL 2.0-7.7 [facility] Neutrophils/100 WBC (Bld) 91.5 % 47-70 [facility] Potassium [Moles/Vol] 4.6 mmol/L 3.5-5.1 [facility] Protein [Mass/Vol] 7.6 g/dL 6.4-8.2 [facility] Sodium [Moles/Vol] 135 mmol/L 136-145 [facility] WBC (Bld) [#/Vol] 15.7 10*3/uL 4.4-11.0 [facility] Blood manual differential co mment interpretation (narrative result)Ordered By: Gian Villanueva on 04-04-2024 Manual differential comment Terry (Bld) [Interp] SCANNED [facility] Comment on above: LYMPHOPENIA NOTED Determination of erythrocyte mean corpuscular volume (MCV)Ordered By: Gian Villanueva on 04-04-2024 MCV (RBC) [Entitic vol] 85.6 fL 81-99 [facility] Erythrocyte distribution wid th ratioOrdered By: Gian Villanueva on 04-04-2024 Erythrocyte distribution width (RBC) [Ratio] 15.2 % 11.6-14.6 [facility] Erythrocyte distribution wid th standard deviationOrdered By: Gian Villanueva on 04-04-2024 Erythrocyte distribution width (RBC) [Entitic vol] 47.2 fL 35.1-43.9 [facility] Hematocrit Auto (Bld) [Volum e fraction]Ordered By: Gian Villanueva on 04-04-2024 Hematocrit (Bld) [Volume fraction] 39.1 % 37-47 [facility] Immature granulocytes/100 WB C Auto (Bld)Ordered By: Gian Villanueva on 04-04-2024 Immature granulocytes/100 WBC (Bld) 0.800 % 0.0-0.9 [facility] Comment on above: IG% - Immature Granu locytes (promyelocytes, myelocytes and metamyelocytes) > 1% indicates that a LEFT SHIFT is Present. Laboratory - Chemistry and C hemistry - challengeOrdered By: Gian Villanueva on 04-04-2024 Albumin/Globulin [Mass ratio] 0.8 {ratio} 0.9-2.4 [facility] ALP [Catalytic activity/Vol] 76 U/L 45-117 [facility] ALT [Catalytic activity/Vol] 24 U/L 13-56 [facility] CO2 [Moles/Vol] 29.0 mmol/L 21.0-32.0 [facility] Globulin (S) [Mass/Vol] 4.3 g/dL 2.2-4.2 [facility] Urea nitrogen/Creatinine [Mass ratio] 20.0 mg/mg 10-20 [facility] Laboratory - Hematology and Cell countsOrdered By: Gian Villanueva on 04-04-2024 MCH (RBC) [Entitic mass] 27.1 pg 27.0-32.0 [facility] MCHC (RBC) [Mass/Vol] 31.7 g/dL 32-36 [facility] Nucleated RBC/100 WBC (Bld) [Ratio] 0 % 0-5 [facility] Platelet mean volume (Bld) [Entitic vol] 10.3 fL 6.2-12.0 [facility] Platelets (Bld) [#/Vol] 187 10*3/uL 150-450 [facility] No Panel InformationOrdered By: Gian Villanueva on 04-04-2024 Estimated Creatinine Clearance Calc 118.07 ml/min [facility] Estimated GFR (MDRD) Amer 70 mL/min >60 [facility] Comment on above: GFR Calc Estimated GFR (MDRD) Non-Af Amer 58 mL/min >60 [facility] Comment on above: Non- GFR Calc RBC Auto (Bld) [#/Vol]Ordere d By: Gian Villanueva on 04-04-2024 RBC (Bld) [#/Vol] 4.57 10*6/uL 4.2-5.4 [facility] Serum or plasma calcium herson urement (mass/volume)Ordered By: Gian Villanueva on 04-04-2024 Calcium [Mass/Vol] 9.1 mg/dL 8.5-10.1 [facility] Serum or plasma creatinine m easurement (mass/volume)Ordered By: Gian Villanueva on 04-04-2024 Creatinine [Mass/Vol] 1.05 mg/dL 0.55-1.02 [facility] Comment on above: The validity of the calculated GFR & GFRAA in patients over 70 years has not been determined. Clinical correlation is essential. Serum or plasma urea nitroge n measurement (mass/volume)Ordered By: Gian Villanueva on 04-04-2024 Urea nitrogen [Mass/Vol] 21 mg/dL 7-18 [facility] Thin prep Papanicolaou smear with manual screeningOrdered By: Gian Villanueva on 04-04-2024 Thin prep Papanicolaou smear with manual screening 3.3 g/dL 3.2-5.0 [facility] Thin prep Papanicolaou smear with manual screening 26 U/L 15-37 [facility] Thin prep Papanicolaou smear with manual screening 5 5-15 [facility] Office Visiton 09-04-2023 Follow-up visit [id number] Jesusita England Ladi 1970 F Date Provider Department Center 09/04/2023 [id number] [facility] [place] Family History Problem Relation Age of Onset Other Mother Comments: Alzheimers disease Family Status - Relation Status Age at Mother Father Other Sister Alive Sister Alive Daughter Alive Level of Service:[id number] DE OFFICE/OUTPATIENT NEW MODERATE MDM 45-59 MINUTES Reason for Visit and Comments: Follow-up [216800] - Recurrent cellulitis (est pt, new to Dr. Tavera) [facility] Progress Noteon 09-04-2023 Progress Note Subjective Patient [...] or fail to improve. Normal [facility] Absolute lymphocyte countOrd ered By: Calderon Ware on 08-21-2023 Lymphocytes Auto (Unsp spec) [#/Vol] 1.17 10*3/uL 0.83-4.51 [facility] Basophil percentageOrdered B y: Calderon Ware on 08-21-2023 Basophils/100 WBC (Bld) 0.2 % 0-1 [facility] Chloride [Moles/Vol] 108 mmol/L 98-107 [facility] Eosinophils/100 WBC (Bld) 0.2 % 0-5 [facility] Glucose [Mass/Vol] 108 mg/dL 74-106 [facility] Comment on above: Fasting Glucose resu lt from 100 to 125 mg/dL suggests IMPAIRED HOMEOSTASIS per A.D.A. criteria. Neutrophils (Bld) [#/Vol] 4.4 10*3/uL 2.0-7.7 [facility] Neutrophils/100 WBC (Bld) 69.7 % 47-70 [facility] Potassium [Moles/Vol] 3.9 mmol/L 3.5-5.1 [facility] Sodium [Moles/Vol] 138 mmol/L 136-145 [facility] WBC (Bld) [#/Vol] 6.3 10*3/uL 4.4-11.0 [facility] Blood erythrocytes count (nu mber/volume)Ordered By: Calderon Ware on 08-21-2023 RBC (Bld) [#/Vol] 3.88 10*6/uL 4.2-5.4 [facility] Blood hemoglobin measurement (mass/volume)Ordered By: Calderon Ware on 08-21-2023 Hemoglobin (Bld) [Mass/Vol] 10.6 g/dL 12.0-15.0 [facility] Blood lymphocytes/100 leukoc ytesOrdered By: Calderon Ware on 08-21-2023 Lymphocytes/100 WBC (Bld) 18.6 % 19-41 [facility] Blood monocytes/100 leukocyt esOrdered By: Calderon Ware on 08-21-2023 Monocytes/100 WBC (Bld) 9.9 % 0-10 [facility] Blood platelet mean volumeOr dered By: Calderon Ware on 08-21-2023 Platelet mean volume (Bld) [Entitic vol] 9.8 fL 6.2-12.0 [facility] Determination of erythrocyte mean corpuscular volume (MCV)Ordered By: Calderon Ware on 08-21-2023 MCV (RBC) [Entitic vol] 87.1 fL 81-99 [facility] Hematocrit Auto (Bld) [Volum e fraction]Ordered By: Calderon Ware on 08-21-2023 Hematocrit (Bld) [Volume fraction] 33.8 % 37-47 [facility] Laboratory - Chemistry and C hemistry - challengeOrdered By: Calderon Ware on 08-21-2023 CO2 [Moles/Vol] 27.0 mmol/L 21.0-32.0 [facility] Urea nitrogen/Creatinine [Mass ratio] 15.9 mg/mg 10-20 [facility] Laboratory - Hematology and Cell countsOrdered By: Calderon Ware on 08-21-2023 Erythrocyte distribution width (RBC) [Entitic vol] 50.3 fL 35.1-43.9 [facility] Erythrocyte distribution width (RBC) [Ratio] 15.6 % 11.6-14.6 [facility] Immature granulocytes/100 WBC (Bld) 1.400 % 0.0-0.9 [facility] Comment on above: IG% - Immature Granu locytes (promyelocytes, myelocytes and metamyelocytes) > 1% indicates that a LEFT SHIFT is Present. MCH (RBC) [Entitic mass] 27.3 pg 27.0-32.0 [facility] Nucleated RBC/100 WBC (Bld) [Ratio] 0 % 0-5 [facility] MCHC Auto (RBC) [Mass/Vol]Or dered By: Calderon Ware on 08-21-2023 MCHC (RBC) [Mass/Vol] 31.4 g/dL 32-36 [facility] No Panel InformationOrdered By: Calderon Ware on 08-21-2023 Estimated Creatinine Clearance Calc 79.55 ml/min [facility] Estimated GFR (MDRD) Amer 113 mL/min >60 [facility] Comment on above: GFR Calc Estimated GFR (MDRD) Non-Af Amer 94 mL/min >60 [facility] Comment on above: Non- GFR Calc Platelets bldOrdered By: Liborio Ware on 08-21-2023 Platelets (Bld) [#/Vol] 165 10*3/uL 150-450 [facility] Serum or plasma calcium herson urement (mass/volume)Ordered By: Calderon Ware on 08-21-2023 Calcium [Mass/Vol] 8.6 mg/dL 8.5-10.1 [facility] Serum or plasma creatinine m easurement (mass/volume)Ordered By: Calderon Ware on 08-21-2023 Creatinine [Mass/Vol] 0.69 mg/dL 0.55-1.02 [facility] Comment on above: The validity of the calculated GFR & GFRAA in patients over 70 years has not been determined. Clinical correlation is essential. Serum or plasma urea nitroge n measurement (mass/volume)Ordered By: Calderon Ware on 08-21-2023 Urea nitrogen [Mass/Vol] 11 mg/dL 7-18 [facility] Thin prep Papanicolaou smear with manual screeningOrdered By: Calderon Ware on 08-21-2023 Thin prep Papanicolaou smear with manual screening 3 5-15 [facility] Laboratory - Chemistry and C hemistry - challengeOrdered By: Calderon Ware on 08-19-2023 Magnesium [Mass/Vol] 2.0 mg/dL 1.6-2.6 [facility] Basophil percentageOrdered B y: Mandy Arce on 08-18-2023 Lactate [Moles/Vol] 1.1 mmol/L 0.4-2.0 [facility] Absolute lymphocyte countOrd ered By: Mandy Arce on 08-17-2023 Lymphocytes Auto (Unsp spec) [#/Vol] 0.54 10*3/uL 0.83-4.51 [facility] Basophil percentageOrdered B y: Mandy Arce on 08-17-2023 Basophils/100 WBC (Bld) 0.1 % 0-1 [facility] Bilirubin [Mass/Vol] 0.40 mg/dL 0.20-1.00 [facility] Comment on above: For patients on eltr ombopag therapy, use of Dimension Selmer TBIL is not recommended. Chloride [Moles/Vol] 103 mmol/L 98-107 [facility] Eosinophils/100 WBC (Bld) 0.0 % 0-5 [facility] Glucose [Mass/Vol] 101 mg/dL 74-106 [facility] Comment on above: Fasting Glucose resu lt from 100 to 125 mg/dL suggests IMPAIRED HOMEOSTASIS per A.D.A. criteria. Lactate [Moles/Vol] 2.4 mmol/L 0.4-2.0 [facility] Comment on above: Critical Result(s) C alled at: 00:02:08 08/18/2023 by: Vladimir Ruth. to SATHYA FontaineRN) (ED) Results read back by same. Neutrophils (Bld) [#/Vol] 15.3 10*3/uL 2.0-7.7 [facility] Neutrophils/100 WBC (Bld) 90.9 % 47-70 [facility] Potassium [Moles/Vol] 4.6 mmol/L 3.5-5.1 [facility] Protein [Mass/Vol] 7.6 g/dL 6.4-8.2 [facility] Sodium [Moles/Vol] 136 mmol/L 136-145 [facility] WBC (Bld) [#/Vol] 16.8 10*3/uL 4.4-11.0 [facility] Blood erythrocytes count (nu mber/volume)Ordered By: Mandy Arce on 08-17-2023 RBC (Bld) [#/Vol] 4.57 10*6/uL 4.2-5.4 [facility] Blood hemoglobin measurement (mass/volume)Ordered By: Mandy Arce on 08-17-2023 Hemoglobin (Bld) [Mass/Vol] 12.5 g/dL 12.0-15.0 [facility] Blood lymphocytes/100 leukoc ytesOrdered By: Mandy Arce on 08-17-2023 Lymphocytes/100 WBC (Bld) 3.2 % 19-41 [facility] Blood monocytes/100 leukocyt esOrdered By: Mandy Arce on 08-17-2023 Monocytes/100 WBC (Bld) 5.0 % 0-10 [facility] Blood platelet mean volumeOr dered By: Mandy Arce on 08-17-2023 Platelet mean volume (Bld) [Entitic vol] 10.0 fL 6.2-12.0 [facility] Determination of erythrocyte mean corpuscular volume (MCV)Ordered By: Mandy Arce on 08-17-2023 MCV (RBC) [Entitic vol] 87.3 fL 81-99 [facility] Erythrocyte sedimentation ra teOrdered By: Mandy Arce on 08-17-2023 ESR (Bld) [Velocity] 28 mm/h 0-30 [facility] Hematocrit Auto (Bld) [Volum e fraction]Ordered By: Mandy Arce on 08-17-2023 Hematocrit (Bld) [Volume fraction] 39.9 % 37-47 [facility] INR in Blood by Coagulation assayOrdered By: Mandy Arce on 08-17-2023 INR Coag (Bld) [Relative time] 1.0 {INR} [facility] Laboratory - Chemistry and C hemistry - challengeOrdered By: Mandy Arce on 08-17-2023 ALP [Catalytic activity/Vol] 81 U/L 45-117 [facility] ALT [Catalytic activity/Vol] 19 U/L 13-56 [facility] CO2 [Moles/Vol] 29.0 mmol/L 21.0-32.0 [facility] Globulin (S) [Mass/Vol] 4.3 g/dL 2.2-4.2 [facility] Urea nitrogen/Creatinine [Mass ratio] 21.8 mg/mg 10-20 [facility] Laboratory - CoagulationOrde red By: Mandy Arce on 08-17-2023 aPTT Coag (Bld) [Time] 32.0 s 24.1-36.2 [facility] Coag (PPP) [Time] 12.9 s 11.7-14.9 [facility] Laboratory - Hematology and Cell countsOrdered By: Mandy Arce on 08-17-2023 Anisocytosis Ql (Bld) 1+ [facility] Erythrocyte distribution width (RBC) [Entitic vol] 48.9 fL 35.1-43.9 [facility] Erythrocyte distribution width (RBC) [Ratio] 15.3 % 11.6-14.6 [facility] Immature granulocytes/100 WBC (Bld) 0.800 % 0.0-0.9 [facility] Comment on above: IG% - Immature Granu locytes (promyelocytes, myelocytes and metamyelocytes) > 1% indicates that a LEFT SHIFT is Present. MCH (RBC) [Entitic mass] 27.4 pg 27.0-32.0 [facility] Nucleated RBC/100 WBC (Bld) [Ratio] 0 % 0-5 [facility] MCHC Auto (RBC) [Mass/Vol]Or dered By: Mandy Arce on 08-17-2023 MCHC (RBC) [Mass/Vol] 31.3 g/dL 32-36 [facility] No Panel InformationOrdered By: Mandy Arce on 08-17-2023 Estimated GFR (MDRD) Amer 82 mL/min >60 [facility] Comment on above: GFR Calc Estimated GFR (MDRD) Non-Af Amer 68 mL/min >60 [facility] Comment on above: Non- GFR Calc Platelets bldOrdered By: Nani Arce on 08-17-2023 Platelets (Bld) [#/Vol] 190 10*3/uL 150-450 [facility] Serum or plasma C reactive p rotein measurement (mass/volume)Ordered By: Mandy Arce on 08-17-2023 CRP [Mass/Vol] 53.20 mg/L 0.0-3.0 [facility] Comment on above: C-Reactive Protein ( CRP) provides useful information for thediagnosis, therapy and monitoring of inflammatory processesand associated diseases. For the evaluation of Relative Riskfor Cardiovascular Disease, a High Sensitivity CRP (HSCRP)should be ordered. Serum or plasma albumin herson urement (mass/volume)Ordered By: Mandy Arce on 08-17-2023 Albumin [Mass/Vol] 3.3 g/dL 3.2-5.0 [facility] Serum or plasma albumin/glob ulin mass ratioOrdered By: Mandy Arce on 08-17-2023 Albumin/Globulin [Mass ratio] 0.8 {ratio} 0.9-2.4 [facility] Serum or plasma calcium herson urement (mass/volume)Ordered By: Mandy Arce on 08-17-2023 Calcium [Mass/Vol] 8.8 mg/dL 8.5-10.1 [facility] Serum or plasma creatinine m easurement (mass/volume)Ordered By: Mandy Arce on 08-17-2023 Creatinine [Mass/Vol] 0.92 mg/dL 0.55-1.02 [facility] Comment on above: The validity of the calculated GFR & GFRAA in patients over 70 years has not been determined. Clinical correlation is essential. Serum or plasma urea nitroge n measurement (mass/volume)Ordered By: Mandy Arce on 08-17-2023 Urea nitrogen [Mass/Vol] 20 mg/dL 7-18 [facility] Thin prep Papanicolaou smear with manual screeningOrdered By: Mandy Arce on 08-17-2023 Thin prep Papanicolaou smear with manual screening 15 U/L 15-37 [facility] Thin prep Papanicolaou smear with manual screening 4 5-15 [facility] Absolute lymphocyte countOrd ered By: Betty Calvin on 07-31-2023 Lymphocytes Auto (Unsp spec) [#/Vol] 1.24 10*3/uL 0.83-4.51 [facility] Basophil percentageOrdered B y: Betty Calvin on 07-31-2023 Basophils/100 WBC (Bld) 0.2 % 0-1 [facility] Chloride [Moles/Vol] 106 mmol/L 98-107 [facility] Eosinophils/100 WBC (Bld) 0.2 % 0-5 [facility] Glucose [Mass/Vol] 104 mg/dL 74-106 [facility] Comment on above: Fasting Glucose resu lt from 100 to 125 mg/dL suggests IMPAIRED HOMEOSTASIS per A.D.A. criteria. Neutrophils (Bld) [#/Vol] 3.9 10*3/uL 2.0-7.7 [facility] Neutrophils/100 WBC (Bld) 66.9 % 47-70 [facility] Potassium [Moles/Vol] 4.2 mmol/L 3.5-5.1 [facility] Sodium [Moles/Vol] 139 mmol/L 136-145 [facility] WBC (Bld) [#/Vol] 5.8 10*3/uL 4.4-11.0 [facility] Blood erythrocytes count (nu mber/volume)Ordered By: Betty Calvin on 07-31-2023 RBC (Bld) [#/Vol] 4.12 10*6/uL 4.2-5.4 [facility] Blood hemoglobin measurement (mass/volume)Ordered By: Betty Calvin on 07-31-2023 Hemoglobin (Bld) [Mass/Vol] 11.1 g/dL 12.0-15.0 [facility] Blood lymphocytes/100 leukoc ytesOrdered By: Betty Calvin on 07-31-2023 Lymphocytes/100 WBC (Bld) 21.3 % 19-41 [facility] Blood monocytes/100 leukocyt esOrdered By: Betty Calvin on 07-31-2023 Monocytes/100 WBC (Bld) 9.3 % 0-10 [facility] Blood platelet mean volumeOr dered By: Betty Calvin on 07-31-2023 Platelet mean volume (Bld) [Entitic vol] 9.3 fL 6.2-12.0 [facility] Determination of erythrocyte mean corpuscular volume (MCV)Ordered By: Betty Calvin on 07-31-2023 MCV (RBC) [Entitic vol] 87.1 fL 81-99 [facility] Hematocrit Auto (Bld) [Volum e fraction]Ordered By: Betty Calvin on 07-31-2023 Hematocrit (Bld) [Volume fraction] 35.9 % 37-47 [facility] Laboratory - Chemistry and C hemistry - challengeOrdered By: Betty Calvin on 07-31-2023 CO2 [Moles/Vol] 28.0 mmol/L 21.0-32.0 [facility] Urea nitrogen/Creatinine [Mass ratio] 17.4 mg/mg 10-20 [facility] Laboratory - Hematology and Cell countsOrdered By: Betty Calvin on 07-31-2023 Erythrocyte distribution width (RBC) [Entitic vol] 47.3 fL 35.1-43.9 [facility] Erythrocyte distribution width (RBC) [Ratio] 14.9 % 11.6-14.6 [facility] Immature granulocytes/100 WBC (Bld) 2.100 % 0.0-0.9 [facility] Comment on above: IG% - Immature Granu locytes (promyelocytes, myelocytes and metamyelocytes) > 1% indicates that a LEFT SHIFT is Present. MCH (RBC) [Entitic mass] 26.9 pg 27.0-32.0 [facility] Nucleated RBC/100 WBC (Bld) [Ratio] 0 % 0-5 [facility] MCHC Auto (RBC) [Mass/Vol]Or dered By: Betty Calvin on 07-31-2023 MCHC (RBC) [Mass/Vol] 30.9 g/dL 32-36 [facility] No Panel InformationOrdered By: Betty Calvin on 07-31-2023 Estimated Creatinine Clearance Calc 63.83 ml/min [facility] Estimated GFR (MDRD) Amer 88 mL/min >60 [facility] Comment on above: GFR Calc Estimated GFR (MDRD) Non-Af Amer 73 mL/min >60 [facility] Comment on above: Non- GFR Calc Platelets bldOrdered By: Ira Calvin on 07-31-2023 Platelets (Bld) [#/Vol] 208 10*3/uL 150-450 [facility] Serum or plasma calcium herson urement (mass/volume)Ordered By: Betty Calvin on 07-31-2023 Calcium [Mass/Vol] 9.0 mg/dL 8.5-10.1 [facility] Serum or plasma creatinine m easurement (mass/volume)Ordered By: Betty Calvin on 07-31-2023 Creatinine [Mass/Vol] 0.86 mg/dL 0.55-1.02 [facility] Comment on above: The validity of the calculated GFR & GFRAA in patients over 70 years has not been determined. Clinical correlation is essential. Serum or plasma urea nitroge n measurement (mass/volume)Ordered By: Betty Calvin on 07-31-2023 Urea nitrogen [Mass/Vol] 15 mg/dL 7-18 [facility] Thin prep Papanicolaou smear with manual screeningOrdered By: Betty Calvin on 07-31-2023 Thin prep Papanicolaou smear with manual screening 5 5-15 [facility] Erythrocyte sedimentation ra teOrdered By: Betty Calvin on 07-30-2023 ESR (Bld) [Velocity] 55 mm/h 0-30 [facility] Serum or plasma C reactive p rotein measurement (mass/volume)Ordered By: Betty Calvin on 07-30-2023 CRP [Mass/Vol] 120.00 mg/L 0.0-3.0 [facility] Comment on above: C-Reactive Protein ( CRP) provides useful information for thediagnosis, therapy and monitoring of inflammatory processesand associated diseases. For the evaluation of Relative Riskfor Cardiovascular Disease, a High Sensitivity CRP (HSCRP)should be ordered. Laboratory - Chemistry and C hemistry - challengeOrdered By: Betty Calvin on 07-28-2023 Natriuretic peptide B (Bld) [Mass/Vol] 232.8 pg/mL 0-100 [facility] No Panel InformationOrdered By: Adrianna Mejia on 07-26-2023 Methicillin-Resist S.aureus DNA PCR Negative Negative [facility] Staphylococcus aureus DNA de tection by probe and target amplification methodOrdered By: Adrianna Mejia on 07-26-2023 S. aureus DNA CHANTELL+probe Ql (Unsp spec) Positive Negative [facility] Vancomycin troughOrdered By: Betty Calvin on 07-26-2023 Vancomycin trough [Mass/Vol] 15.1 ug/mL 5.0-15.0 [facility] Comment on above: VANCOMYCIN STANDARED DRUG THERAPY TROUGH LEVEL: 5.0 - 15.0 mg/L VANCOMYCIN HIGH INTENSITY THERAPY TROUGH LEVEL: 15.0 - 20.0 mg/L High Intensity therapy recommended for serious lifethreatening infections include:- Vwyiwthmrs-Afzhipzvpdnb-Sdlhjkumx (Ventilator/Healtcare Associated)-Sepsis PLEASE CONTACT PHARMACY SERVICES (#[id number]) FOR INTERPRETATIONOF RESULTS. Basophil percentageOrdered B y: Betty Calvin on 07-25-2023 Bilirubin [Mass/Vol] 0.60 mg/dL 0.20-1.00 [facility] Comment on above: For patients on eltr ombopag therapy, use of Dimension Selmer TBIL is not recommended. Lactate [Moles/Vol] 1.5 mmol/L 0.4-2.0 [facility] Protein [Mass/Vol] 7.0 g/dL 6.4-8.2 [facility] Basophil percentageOrdered B y: Adrianna eMjia on 07-25-2023 Basophil percentage 2.9 mg/dL 2.5-4.9 [facility] Blood manual differential co mment interpretation (narrative result)Ordered By: Adrianna Mejia on 07-25-2023 Manual differential comment Terry (Bld) [Interp] SCANNED [facility] Comment on above: LYMPHOPENIA PRESENT Laboratory - Chemistry and C hemistry - challengeOrdered By: Betty Calvin on 07-25-2023 ALP [Catalytic activity/Vol] 71 U/L 45-117 [facility] ALT [Catalytic activity/Vol] 20 U/L 13-56 [facility] Globulin (S) [Mass/Vol] 3.9 g/dL 2.2-4.2 [facility] Laboratory - Chemistry and C hemistry - challengeOrdered By: Adrianna Mejia on 07-25-2023 Magnesium [Mass/Vol] 1.8 mg/dL 1.6-2.6 [facility] Laboratory - Microbiology an d Antimicrobial susceptibilityOrdered By: Betty Calvin on 07-25-2023 Bacteria identified Cx Nom (Bld) No growth in 5 days. [facility] No Panel InformationOrdered By: Adrianna Mejia on 07-25-2023 Thyroid Stimulating Hormone (TSH) 1.67 uIU/mL 0.358-3.74 [facility] Serum or plasma albumin herson urement (mass/volume)Ordered By: Betty Calvin on 07-25-2023 Albumin [Mass/Vol] 3.1 g/dL 3.2-5.0 [facility] Serum or plasma albumin/glob ulin mass ratioOrdered By: Betty Calvin on 07-25-2023 Albumin/Globulin [Mass ratio] 0.8 {ratio} 0.9-2.4 [facility] Serum procalcitonin measurem entOrdered By: Betty Calvin on 07-25-2023 Procalcitonin [Mass/Vol] 0.10 ng/mL 0.00-0.09 [facility] Comment on above: A procalcitonin (PCT ) [...] smear with manual screening 14 U/L 15-37 [facility] Absolute lymphocyte countOrd ered By: Arthur Lara on 07-24-2023 Lymphocytes Auto (Unsp spec) [#/Vol] 0.90 10*3/uL 0.83-4.51 [facility] Basophil percentageOrdered B y: Arthur Lara on 07-24-2023 Basophils/100 WBC (Bld) 0.1 % 0-1 [facility] Bilirubin [Mass/Vol] 0.30 mg/dL 0.20-1.00 [facility] Comment on above: For patients on eltr ombopag therapy, use of Dimension Selmer TBIL is not recommended. Chloride [Moles/Vol] 107 mmol/L 98-107 [facility] Eosinophils/100 WBC (Bld) 0.0 % 0-5 [facility] Glucose [Mass/Vol] 118 mg/dL 74-106 [facility] Comment on above: Fasting Glucose resu lt from 100 to 125 mg/dL suggests IMPAIRED HOMEOSTASIS per A.D.A. criteria. Lactate [Moles/Vol] 1.6 mmol/L 0.4-2.0 [facility] Neutrophils (Bld) [#/Vol] 9.4 10*3/uL 2.0-7.7 [facility] Neutrophils/100 WBC (Bld) 84.5 % 47-70 [facility] Potassium [Moles/Vol] 4.2 mmol/L 3.5-5.1 [facility] Protein [Mass/Vol] 7.1 g/dL 6.4-8.2 [facility] Sodium [Moles/Vol] 138 mmol/L 136-145 [facility] WBC (Bld) [#/Vol] 11.1 10*3/uL 4.4-11.0 [facility] Blood erythrocytes count (nu mber/volume)Ordered By: Arthur Lara on 07-24-2023 RBC (Bld) [#/Vol] 4.40 10*6/uL 4.2-5.4 [facility] Blood hemoglobin measurement (mass/volume)Ordered By: Arthur Lara on 07-24-2023 Hemoglobin (Bld) [Mass/Vol] 12.2 g/dL 12.0-15.0 [facility] Blood lymphocytes/100 leukoc ytesOrdered By: Arthur Lara on 07-24-2023 Lymphocytes/100 WBC (Bld) 8.1 % 19-41 [facility] Blood monocytes/100 leukocyt esOrdered By: Arthur Lara on 07-24-2023 Monocytes/100 WBC (Bld) 6.7 % 0-10 [facility] Blood platelet mean volumeOr dered By: Arthur Lara on 07-24-2023 Platelet mean volume (Bld) [Entitic vol] 9.2 fL 6.2-12.0 [facility] Determination of erythrocyte mean corpuscular volume (MCV)Ordered By: Arthur Lara on 07-24-2023 MCV (RBC) [Entitic vol] 86.4 fL 81-99 [facility] Erythrocyte sedimentation ra teOrdered By: Adrianna Mejia on 07-24-2023 ESR (Bld) [Velocity] 35 mm/h 0-30 [facility] Hematocrit Auto (Bld) [Volum e fraction]Ordered By: Arthur Lara on 07-24-2023 Hematocrit (Bld) [Volume fraction] 38.0 % 37-47 [facility] Laboratory - Chemistry and C hemistry - challengeOrdered By: Arthur Lara on 07-24-2023 ALP [Catalytic activity/Vol] 87 U/L 45-117 [facility] ALT [Catalytic activity/Vol] 19 U/L 13-56 [facility] CO2 [Moles/Vol] 28.0 mmol/L 21.0-32.0 [facility] Globulin (S) [Mass/Vol] 3.9 g/dL 2.2-4.2 [facility] Urea nitrogen/Creatinine [Mass ratio] 23.4 mg/mg 10-20 [facility] Laboratory - Hematology and Cell countsOrdered By: Arthur Lara on 07-24-2023 Erythrocyte distribution width (RBC) [Entitic vol] 48.1 fL 35.1-43.9 [facility] Erythrocyte distribution width (RBC) [Ratio] 15.2 % 11.6-14.6 [facility] Immature granulocytes/100 WBC (Bld) 0.600 % 0.0-0.9 [facility] Comment on above: IG% - Immature Granu locytes (promyelocytes, myelocytes and metamyelocytes) > 1% indicates that a LEFT SHIFT is Present. MCH (RBC) [Entitic mass] 27.7 pg 27.0-32.0 [facility] Nucleated RBC/100 WBC (Bld) [Ratio] 0 % 0-5 [facility] MCHC Auto (RBC) [Mass/Vol]Or dered By: Arthur Lara on 07-24-2023 MCHC (RBC) [Mass/Vol] 32.1 g/dL 32-36 [facility] No Panel InformationOrdered By: Arthur Lara on 07-24-2023 Estimated Creatinine Clearance Calc 66.51 ml/min [facility] Estimated GFR (MDRD) Amer 89 mL/min >60 [facility] Comment on above: GFR Calc Estimated GFR (MDRD) Non-Af Amer 73 mL/min >60 [facility] Comment on above: Non- GFR Calc Platelets bldOrdered By: Louann Lara on 07-24-2023 Platelets (Bld) [#/Vol] 209 10*3/uL 150-450 [facility] Serum or plasma C reactive p rotein measurement (mass/volume)Ordered By: Adrianna Mejia on 07-24-2023 CRP [Mass/Vol] 21.50 mg/L 0.0-3.0 [facility] Comment on above: C-Reactive Protein ( CRP) provides useful information for thediagnosis, therapy and monitoring of inflammatory processesand associated diseases. For the evaluation of Relative Riskfor Cardiovascular Disease, a High Sensitivity CRP (HSCRP)should be ordered. Serum or plasma albumin herson urement (mass/volume)Ordered By: Arthur Lara on 07-24-2023 Albumin [Mass/Vol] 3.2 g/dL 3.2-5.0 [facility] Serum or plasma albumin/glob ulin mass ratioOrdered By: Arthur Lara on 07-24-2023 Albumin/Globulin [Mass ratio] 0.8 {ratio} 0.9-2.4 [facility] Serum or plasma calcium herson urement (mass/volume)Ordered By: Arthur Lara on 07-24-2023 Calcium [Mass/Vol] 8.9 mg/dL 8.5-10.1 [facility] Serum or plasma creatinine m easurement (mass/volume)Ordered By: Arthur Lara on 07-24-2023 Creatinine [Mass/Vol] 0.86 mg/dL 0.55-1.02 [facility] Comment on above: The validity of the calculated GFR & GFRAA in patients over 70 years has not been determined. Clinical correlation is essential. Serum or plasma urea nitroge n measurement (mass/volume)Ordered By: Arthur Lara on 07-24-2023 Urea nitrogen [Mass/Vol] 20 mg/dL 7-18 [facility] Thin prep Papanicolaou smear with manual screeningOrdered By: Arthur Lara on 07-24-2023 Thin prep Papanicolaou smear with manual screening 12 U/L 15-37 [facility] Thin prep Papanicolaou smear with manual screening 3 5-15 [facility] Whole blood hemoglobin A1c/t otal hemoglobin ratio (mass fraction)Ordered By: Adrianna Mejia on 07-24-2023 HbA1c (Bld) [Mass fraction] 5.9 % 3.8-5.6 [facility] Comment on above: Normal < 5.7 % Predi abetic 5.7 - 6.4 % Diabetic >or= 6.5 % Please note range changes. Laboratory - Hematology and Cell countson 07-16-2023 Basophils (Bld) [#/Vol] 0.007 10*3/uL Normal 0 - 200 {cells/uL} [facility].; [facility] Basophils/100 WBC (Bld) 0.1 % Normal [facility].; [facility] Eosinophils (Bld) [#/Vol] 0.007 10*3/uL Abnormal 15 - 500 {cells/uL} [facility].; [employer]. Eosinophils/100 WBC (Bld) 0.1 % Normal [facility].; [place] [employer] [facility], [facility]. Erythrocyte distribution width (RBC) [Ratio] 14.3 % Normal 11.0 - 15.0 % [facility].; [employer], [employer]. Hematocrit (Bld) [Volume fraction] 40.3 % Normal 35.0 - 45.0 % [facility].; [place] [employer], [facility]. Hemoglobin (Bld) [Mass/Vol] 13.2 g/dL Normal 11.7 - 15.5 g/dL [facility].; [place] [employer], [facility]. Lymphocytes (Bld) [#/Vol] 1.414 10*3/uL Normal 850 - 3900 {cells/uL} [facility].; [employer], [employer]. Lymphocytes/100 WBC (Bld) 21.1 % Normal [place] [employer] [facility] [facility].; [employer], [employer]. MCH (RBC) [Entitic mass] 26.9 pg Abnormal 27.0 - 33.0 pg [place] [employer] [facility] [facility].; [employer], [employer]. MCHC (RBC) [Mass/Vol] 32.8 g/dL Normal 32.0 - 36.0 g/dL [facility].; [employer], [employer]. MCV (RBC) [Entitic vol] 82.2 fL Normal 80.0 - 100.0 fL [place] [employer] [facility].; [employer], [facility]. Monocytes (Bld) [#/Vol] 0.469 10*3/uL Normal 200 - 950 {cells/uL} [place] [employer] [facility].; [employer], [employer]. Monocytes/100 WBC (Bld) 7.0 % Normal [place] [employer] [facility].; [place] [employer], [facility]. Neutrophils (Bld) [#/Vol] 4.804 10*3/uL Normal 1500 - 7800 {cells/uL} [place] [employer], [employer]. Neutrophils/100 WBC (Bld) 71.7 % Normal [place] [employer] [facility].; [employer]. Platelet mean volume (Bld) [Entitic vol] 9.7 fL Normal 7.5 - 12.5 fL [place] [employer] [place] [employer]. Platelets (Bld) [#/Vol] 295 10*3/uL Normal 140 - 400 [employer].; [place]. RBC (Bld) [#/Vol] 4.90 10*6/uL Normal 3.80 - 5.1 0 {Million/uL} [employer] [place] [employer]. WBC (Bld) [#/Vol] 6.7 10*3/uL Normal 3.8 - 10.8 [employer] No Panel Informationon 07-16 COMMENT(S) SEE NOTE Normal [place] [employer]. Absolute lymphocyte countOrd ered By: Kolby Guan on 07-08-2023 Lymphocytes Auto (Unsp spec) [#/Vol] 0.36 10*3/uL 0.83-4.51 [facility] Basophil percentageOrdered B y: Kolby Guan on 07-08-2023 Basophils/100 WBC (Bld) 0.1 % 0-1 [facility] Bilirubin [Mass/Vol] 0.70 mg/dL 0.20-1.00 [facility] Comment on above: For patients on eltr ombopag therapy, use of Dimension Sel[place] TBIL is not recommended. Chloride [Moles/Vol] 100 mmol/L 98-107 [facility] Eosinophils/100 WBC (Bld) 0.0 % 0-5 [facility] Glucose [Mass/Vol] 111 mg/dL 74-106 [facility] Comment on above: Fasting Glucose resu lt from 100 to 125 mg/dL suggests IMPAIRED HOMEOSTASIS per A.D.A. criteria. Lactate [Moles/Vol] 1.6 mmol/L 0.4-2.0 [facility] Neutrophils (Bld) [#/Vol] 13.7 10*3/uL 2.0-7.7 [facility] Neutrophils/100 WBC (Bld) 92.5 % 47-70 [facility] Potassium [Moles/Vol] 4.4 mmol/L 3.5-5.1 [facility] Protein [Mass/Vol] 7.3 g/dL 6.4-8.2 [facility] Sodium [Moles/Vol] 134 mmol/L 136-145 [facility] WBC (Bld) [#/Vol] 14.9 10*3/uL 4.4-11.0 [facility] Blood erythrocytes count (nu mber/volume)Ordered By: Kolby Guan on 07-08-2023 RBC (Bld) [#/Vol] 4.58 10*6/uL 4.2-5.4 [facility] Blood hemoglobin measurement (mass/volume)Ordered By: Kolby Guan on 07-08-2023 Hemoglobin (Bld) [Mass/Vol] 12.6 g/dL 12.0-15.0 [facility] Blood lymphocytes/100 leukoc ytesOrdered By: Kolby Guan on 07-08-2023 Lymphocytes/100 WBC (Bld) 2.4 % 19-41 [facility] Blood manual differential co mment interpretation (narrative result)Ordered By: Kolby Guan on 07-08-2023 Manual differential comment Terry (Bld) [Interp] SCANNED [facility] Blood monocytes/100 leukocyt esOrdered By: Kolby Guan on 07-08-2023 Monocytes/100 WBC (Bld) 4.4 % 0-10 [facility] Blood platelet mean volumeOr dered By: Kolby Guan on 07-08-2023 Platelet mean volume (Bld) [Entitic vol] 9.9 fL 6.2-12.0 [facility] Determination of erythrocyte mean corpuscular volume (MCV)Ordered By: Kolby Guan on 07-08-2023 MCV (RBC) [Entitic vol] 87.3 fL 81-99 [facility] Hematocrit Auto (Bld) [Volum e fraction]Ordered By: Kolby Guan on 07-08-2023 Hematocrit (Bld) [Volume fraction] 40.0 % 37-47 [facility] INR in Blood by Coagulation assayOrdered By: Kolby Guan on 07-08-2023 INR Coag (Bld) [Relative time] 1.1 {INR} [facility] Laboratory - Chemistry and C hemistry - challengeOrdered By: Kolby Guan on 07-08-2023 ALP [Catalytic activity/Vol] 79 U/L 45-117 [facility] ALT [Catalytic activity/Vol] 22 U/L 13-56 [facility] CO2 [Moles/Vol] 28.0 mmol/L 21.0-32.0 [facility] Globulin (S) [Mass/Vol] 4.0 g/dL 2.2-4.2 [facility] Urea nitrogen/Creatinine [Mass ratio] 18.7 mg/mg 10-20 [facility] Laboratory - CoagulationOrde red By: Kolby Guan on 07-08-2023 aPTT Coag (Bld) [Time] 35.2 s 24.1-36.2 [facility] Coag (PPP) [Time] 13.8 s 11.7-14.9 [facility] Laboratory - Hematology and Cell countsOrdered By: Kolby Guan on 07-08-2023 Erythrocyte distribution width (RBC) [Entitic vol] 49.1 fL 35.1-43.9 [facility] Erythrocyte distribution width (RBC) [Ratio] 15.4 % 11.6-14.6 [facility] Immature granulocytes/100 WBC (Bld) 0.600 % 0.0-0.9 [facility] Comment on above: IG% - Immature Granu locytes (promyelocytes, myelocytes and metamyelocytes) > 1% indicates that a LEFT SHIFT is Present. MCH (RBC) [Entitic mass] 27.5 pg 27.0-32.0 [facility] Nucleated RBC/100 WBC (Bld) [Ratio] 0 % 0-5 [facility] Laboratory - Microbiology an d Antimicrobial susceptibilityOrdered By: Kolby Guan on 07-08-2023 Bacteria identified Cx Nom (Bld) No growth in 5 days. [facility] MCHC Auto (RBC) [Mass/Vol]Or dered By: Kolby Guan on 07-08-2023 MCHC (RBC) [Mass/Vol] 31.5 g/dL 32-36 [facility] No Panel InformationOrdered By: Kolby Guan on 07-08-2023 Estimated Creatinine Clearance Calc 57.18 ml/min [facility] Estimated GFR (MDRD) Amer 77 mL/min >60 [facility] Comment on above: GFR Calc Estimated GFR (MDRD) Non-Af Amer 64 mL/min >60 [facility] Comment on above: Non- GFR Calc Platelets bldOrdered By: Merly Guan on 07-08-2023 Platelets (Bld) [#/Vol] 169 10*3/uL 150-450 [facility] Serum or plasma albumin herson urement (mass/volume)Ordered By: Kolby Guan on 07-08-2023 Albumin [Mass/Vol] 3.3 g/dL 3.2-5.0 [facility] Serum or plasma albumin/glob ulin mass ratioOrdered By: Kolby Guan on 07-08-2023 Albumin/Globulin [Mass ratio] 0.8 {ratio} 0.9-2.4 [facility] Serum or plasma calcium herson urement (mass/volume)Ordered By: Kolby Guan on 07-08-2023 Calcium [Mass/Vol] 9.0 mg/dL 8.5-10.1 [facility] Serum or plasma creatinine m easurement (mass/volume)Ordered By: Kolby Guan on 07-08-2023 Creatinine [Mass/Vol] 0.96 mg/dL 0.55-1.02 [facility] Comment on above: The validity of the calculated GFR & GFRAA in patients over 70 years has not been determined. Clinical correlation is essential. Serum or plasma urea nitroge n measurement (mass/volume)Ordered By: Kolby Guan on 07-08-2023 Urea nitrogen [Mass/Vol] 18 mg/dL 7-18 [facility] Thin prep Papanicolaou smear with manual screeningOrdered By: Kolby Guan on 07-08-2023 Thin prep Papanicolaou smear with manual screening 16 U/L 15-37 [facility] Thin prep Papanicolaou smear with manual screening 6 5-15 [facility] NICOTINE+METABOLITES,Son COTININE <5 Normal [facility] Comment on above: Performed By: #### F OLA2 #### [facility] [address] [place] [address] NICOTINE <5 Normal [facility] Comment on above: Result Comment: Cons istent [...] developed and its performance characteristics determined by [employer]. It has not been cleared or approved by the [place] Food and Drug Administration. This test was performed in a CLIA certified laboratory and is intended for clinical purposes. Performed By: [employer] [address] [place] [address] Group Account Director: Damien Hernandez MD, PhD Performed By: #### F OLA2 #### [facility] [address] [place] [address] VIT B1-THIAMINE WHOLE BLDon 02-07-2023 VIT B1-THIAMINE WHOLE BLD 167 nmol/L Normal 70-180 [facility] Comment on above: Result Comment: INTE RPRETIVE INFORMATION: Vitamin B1, Whole Blood This assay measures the concentration of thiamine diphosphate (TDP), the primary active form of vitamin B1. Approximately 90 percent of vitamin B1 present in whole blood is TDP. Thiamine and thiamine monophosphate, which comprise the remaining 10 percent, are not measured. This test was developed and its performance characteristics determined by [employer]. It has not been cleared or approved by the [place] Food and Drug Administration. This test was performed in a CLIA certified laboratory and is intended for clinical purposes. Performed By: [employer] [address] [place], [place] [id number] Group Account Director: Damien Hernandez MD, PhD Performed By: #### V TB1W #### [address] [address] COPPERon 02-05-2023 COPPER 152.7 ug/dL Normal 80.0-155.0 [facility] Comment on above: Result Comment: INTE RPRETIVE [...] developed and its performance characteristics determined by [employer]. It has not been cleared or approved by the [place] Food and Drug Administration. This test was performed in a CLIA certified laboratory and is intended for clinical purposes. Performed By: [employer] [address] [place] [address] Group Account Director: Damien Hernandez MD, PhD Performed By: #### F OLA2 #### [facility] [address] [place] [address] ZINCon 02-05-2023 ZINC 89.2 ug/dL Normal 60.0-120.0 [facility] Comment on above: Result Comment: INTE RPRETIVE [...] developed and its performance characteristics determined by [employer]. It has not been cleared or approved by the [place] Food and Drug Administration. This test was performed in a CLIA certified laboratory and is intended for clinical purposes. Performed By: [employer] [address] [place] [address] Group Account Director: Damien Hernandez MD, PhD Performed By: #### [employer] #### [place] [id number] H. PYLORI BREATH TESTon H. PYLORI BREATH TEST Negative Normal NEGATIVE [facility] Comment on above: Result Comment: ANTI MICROBIALS, [...] RESULTS. Performed By: #### B REAT #### [facility] [address] [place], [place] [id number] PARATHYROID HORMONE,INTACTon 02-03-2023 PARATHYROID HORMONE,INTACT 47.2 pg/mL Normal 18.5 - 88.0 [facility] Comment on above: Performed By: #### P TH #### [facility] [address] [place] [address] Bariatric Surgery - Initialo n 02-02-2023 Bariatric [...] you have (more content not included)... Normal [facility] C-REACTIVE PROTEINon 023 C-REACTIVE PROTEIN 2.27 mg/dL Abnormal [facility] Comment on above: Result Comment: REF VALUE < 1.00 Performed By: #### F OLA2 #### [facility] [address] [place] [address] CBC AND DIFFERENTIALon 02-02 % AUTOMATED IMMATURE GRAN 0.5 % Normal 0.0 - 0.9 [facility] Comment on above: Result Comment: Merna ture Granulocyte Count (IG) includes promyelocytes, myelocytes and metamyelocytes but does not include bands. Percent differential counts (%) should be interpreted in the context of the absolute cell counts (cells/L). Performed By: #### C BCDF #### [facility] [address] [place] [address] Erythrocyte distribution width (RBC) [Ratio] 15.4 % High 11.5 - 14.5 [facility] Comment on above: Performed By: #### C BCDF #### [facility] [address] [place] [address] Hematocrit (Bld) [Volume fraction] 42.9 % Normal 36.0 - 46.0 [facility] Comment on above: Performed By: #### C BCDF #### [facility] [id number] [place] [address] [place] [address] Hemoglobin (Bld) [Mass/Vol] 13.4 g/dL Normal 12.0 - 16.0 [facility] Comment on above: Performed By: #### C BCDF #### [address] [place] [address] Lymphocytes (Bld) [#/Vol] 1.01 10*3/uL Low 1.20 - 4.80 [facility] Comment on above: Performed By: #### C BCDF #### [facility] [id number] [place], [place] [address] [address] Lymphocytes/100 WBC (Bld) 17.8 % Normal 13.0 - 44.0 [facility] Comment on above: Performed By: #### C BCDF #### [address] [place] [address] MCHC (RBC) [Mass/Vol] 31.2 g/dL Low 32.0 - 36.0 [facility] Comment on above: Performed By: #### C BCDF #### [facility] [id number] [place], [place] [address] [address] MCV (RBC) [Entitic vol] 86 fL Normal 80 - 100 [facility] Comment on above: Performed By: #### C BCDF #### [facility] [id number] [place], [place] [address] [address] Monocytes (Bld) [#/Vol] 0.45 10*3/uL Normal 0.10 - 1.00 [facility] Comment on above: Performed By: #### C BCDF #### [address] [address] Monocytes/100 WBC (Bld) 7.9 % Normal 2.0 - 10.0 [facility] Comment on above: Performed By: #### C BCDF #### [facility] [address] [place] [address] Neutrophils (Bld) [#/Vol] 4.20 10*3/uL Normal 1.20 - 7.70 [facility] Comment on above: Performed By: #### C BCDF #### [facility] [address] [place] [address] Neutrophils/100 WBC (Bld) 73.8 % Normal 40.0 - 80.0 [facility] Comment on above: Performed By: #### C BCDF #### [facility] [address] [place] [address] Platelets (Bld) [#/Vol] 217 10*3/uL Normal 150 - 450 [facility] Comment on above: Performed By: #### C BCDF #### [facility] [facility] [address] [place] [address] RBC 4.97 x10E12/L Normal 4.00 - 5.20 [facility] Comment on above: Performed By: #### C BCDF #### [facility] [address] [place] [address] WBC (Bld) [#/Vol] 5.7 10*3/uL Normal 4.4 - 11.3 [facility] Comment on above: Performed By: #### C BCDF #### [facility] [address] [place] [address] COAGULATION SCREENon 023 aPTT Coag (Bld) [Time] 32 s Normal 26 - 39 [facility] Comment on above: Result Comment: THE APTT IS NO LONGER USED FOR MONITORING UNFRACTIONATED HEPARIN THERAPY. FOR MONITORING HEPARIN THERAPY, USE THE HEPARIN ASSAY. Performed By: #### F OLA2 #### [facility] [address] [place] [address] PT Coag (PPP) [Time] 11.8 s Normal 9.8 - 13.4 [facility] Comment on above: Performed By: #### F OLA2 #### [facility] [address] [place] [address] PT, INR 1.0 Normal 0.9 - 1.1 [facility] Comment on above: Performed By: #### F OLA2 #### [facility] [address] [place] [address] COMPREHENSIVE PANELon 2022 Albumin [Mass/Vol] 4.2 g/dL Normal 3.4 - 5.0 [facility] Comment on above: Performed By: #### F OLA2 #### [facility] [address] [place] [address] ALP [Catalytic activity/Vol] 61 U/L Normal 33 - 110 [facility] Comment on above: Performed By: #### F OLA2 #### [facility] [address] [place] [address] ALT [Catalytic activity/Vol] 20 U/L Normal 7 - 45 [facility] Comment on above: Result Comment: Dalila ents treated with Sulfasalazine may generate falsely decreased results for ALT. Performed By: #### F OLA2 #### [facility] [address] [place] [address] Anion gap [Moles/Vol] 13 mmol/L Normal 10 - 20 [facility] Comment on above: Performed By: #### F OLA2 #### [facility] [address] [place] [address] AST [Catalytic activity/Vol] 20 U/L Normal 9 - 39 [facility] Comment on above: Performed By: #### F OLA2 #### [facility] [address] [place] [address] Bilirubin [Mass/Vol] 0.5 mg/dL Normal 0.0 - 1.2 [facility] Comment on above: Performed By: #### F OLA2 #### [facility] [address] [place] [address] Calcium [Mass/Vol] 9.6 mg/dL Normal 8.6 - 10.3 [facility] Comment on above: Performed By: #### F OLA2 #### [facility] [address] [place] [address] Chloride [Moles/Vol] 102 mmol/L Normal 98 - 107 [facility] Comment on above: Performed By: #### F OLA2 #### [facility] [address] [place] [address] Creatinine [Mass/Vol] 0.87 mg/dL Normal 0.50 - 1.05 [facility] Comment on above: Performed By: #### F OLA2 #### [facility] [address] [place] [address] GFR/1.73 sq M.predicted among non-blacks MDRD (S/P/Bld) [Vol rate/Area] 79 mL/min/{1.73_m2} Normal >90 [facility] Comment on above: Result Comment: CALC ULATIONS OF ESTIMATED GFR ARE PERFORMED USING THE 2020 CKD-EPI STUDY REFIT EQUATION WITHOUT THE RACE VARIABLE FOR THE IDMS-TRACEABLE CREATININE METHODS. https://jasn.asnjournals.org/content/early//ASN.79249 10464 Performed By: #### F OLA2 #### [facility] [address] [place] [address] Glucose [Mass/Vol] 81 mg/dL Normal 74 - 99 [facility] Comment on above: Performed By: #### F OLA2 #### [facility] [address] [place] [address] HCO3 (Bld) [Moles/Vol] 25 mmol/L Normal 21 - 32 [facility] Comment on above: Performed By: #### F OLA2 #### [facility] [address] [place] [address] Potassium [Moles/Vol] 4.2 mmol/L Normal 3.5 - 5.3 [facility] Comment on above: Performed By: #### F OLA2 #### [facility] [address] [place] [address] Protein [Mass/Vol] 7.4 g/dL Normal 6.4 - 8.2 [facility] Comment on above: Performed By: #### F OLA2 #### [facility] [address] [place] [address] Sodium [Moles/Vol] 136 mmol/L Normal 136 - 145 [facility] Comment on above: Performed By: #### F OLA2 #### [facility] [address] [place] [address] Urea nitrogen [Mass/Vol] 21 mg/dL Normal 6 - 23 [facility] Comment on above: Performed By: #### F OLA2 #### [facility] [address] [place] [address] DRUG SCREEN,URINE WITH REFLE X TO CONFIRMATIONon 02-02-2023 AMPHETAMINE SCREEN,U Negative Normal NEGATIVE [facility] Comment on above: Result Comment: CUTO FF LEVEL: 500 NG/ML Cross-reactivity has been reported with high concentrations of the following drugs: buproprion, chloroquine, chlorpromazine, ephedrine, mephentermine, fenfluramine, phentermine, phenylpropanolamine, pseudoephedrine, and propranolol. Performed By: #### F OLA2 #### [facility] [address] [place] [address] BARBITURATES SCREEN,U Negative Normal NEGATIVE [facility] Comment on above: Result Comment: CUTO FF LEVEL: 200 NG/ML Performed By: #### F OLA2 #### [facility] [address] [place] [address] BENZODIAZEPINES SCREEN,U Negative Normal NEGATIVE [facility] Comment on above: Result Comment: CUTO FF LEVEL: 200 NG/ML Performed By: #### F OLA2 #### [facility] [address] [place] [address] CANNABINOIDS SCREEN,U Negative Normal NEGATIVE [facility] Comment on above: Result Comment: CUTO FF LEVEL: 50 NG/ML Performed By: #### F OLA2 #### [facility] [address] [place] [address] COCAINE METABOLITE SCREEN,U Negative Normal NEGATIVE [facility] Comment on above: Result Comment: CUTO FF LEVEL: 150 NG/ML Performed By: #### F OLA2 #### [facility] [address] [place] [address] DRUG SCREEN COMMENT SEE BELOW Normal [facility] Comment on above: Result Comment: Drug [...] directors. Performed By: #### F OLA2 #### [facility] [address] [place] [address] FENTANYL SCREEN,URINE Negative Normal NEGATIVE [facility] Comment on above: Result Comment: CUTO FF LEVEL: 5 NG/ML Performed By: #### F OLA2 #### [facility] [address] [place] [address] METHADONE SCREEN,U Negative Normal NEGATIVE [facility] Comment on above: Result Comment: CUTO FF LEVEL: 150 NG/ML The metabolite Q-qhbkt-xbumvnwbxpnmsy (LAAM) is not detected by this method in concentrations that would be found in the urine of patients on LAAM therapy. Performed By: #### F OLA2 #### [facility] [address] [place] [address] OPIATES SCREEN,U Negative Normal NEGATIVE [facility] Comment on above: Result Comment: CUTO FF LEVEL: 300 NG/ML The opiate screen does not detect fentanyl, meperidine, or tramadol. Oxycodone is not consistently detected (refer to Oxycodone Screen, Urine result). Performed By: #### F OLA2 #### [facility] [address] [place] [address] OXYCODONE SCREEN,U Negative Normal NEGATIVE [facility] Comment on above: Result Comment: CUTO FF LEVEL: 100 NG/ML This test will accurately detect both oxycodone and oxymorphone. Performed By: #### F OLA2 #### [facility] [address] [place] [address] PCP SCREEN,U Negative Normal NEGATIVE [facility] Comment on above: Result Comment: CUTO FF LEVEL: 25 NG/ML Cross-reactivity has been reported with dextromethorphan. Performed By: #### F OLA2 #### [facility] [address] [place] [address] FERRITINon 02-02-2023 FERRITIN 84 ug/L Normal 8 - 150 [facility] Comment on above: Performed By: #### F OLA2 #### [facility] [address] [place] [id number] FOLATE, SERUMon 02-02-2023 Folate [Mass/Vol] 9.3 ng/mL Normal >5.0 [facility] [place] Comment on above: Result Comment: Low <3.4 Borderline 3.4-5.0 Normal >5.0 . Biotin interference may cause falsely elevated results. Patients taking a Biotin dose of up to 5 mg/day should refrain from taking Biotin for 24 hours before sample collection. Providers may contact their local laboratory for further information. Performed By: #### F OLA2 #### [facility] [address] [place] [address] HEMOGLOBIN A1Con 02-02-2023 Glucose [Mass/Vol] 120 mg/dL Normal [facility] Comment on above: Performed By: #### H BA1E #### [facility] [address] [place] [id number] HbA1c (Bld) [Mass fraction] 5.8 % Abnormal [facility] Comment on above: Result Comment: Diag nosis of Diabetes-Adults Non-Diabetic: < or = 5.6% Increased risk for developing diabetes: 5.7-6.4% Diagnostic of diabetes: > or = 6.5% . Monitoring of Diabetes Age (y) Therapeutic Goal (%) Adults: >18 <7.0 Pediatrics: 13-18 <7.5 7-12 <8.0 0- 6 7.5-8.5 [employer]. Diabetes Care 33(S1), Nov 2009. Performed By: #### H BA1E #### [facility] [address] [place] [address] IRON + TIBCon 02-02-2023 % SATURATION 16 % Low 25 - 45 [facility] Comment on above: Performed By: #### F OLA2 #### [facility] [address] [place] [address] Iron [Mass/Vol] 64 ug/dL Normal 35 - 150 [facility] [place] Comment on above: Performed By: #### F OLA2 #### [facility] [address] [place] [address] TIBC 400 ug/dL Normal 240 - 445 [facility] Comment on above: Performed By: #### F OLA2 #### [facility] [address] [place] [address] LIPID PANEL (CORONARY RISK 2 )on 02-02-2023 Cholesterol [Mass/Vol] 144 mg/dL Normal 0 - 199 [facility] Comment on above: Result Comment: . AGE [...] dosing. Performed By: #### F OLA2 #### [facility] [address] [place] [address] Cholesterol in HDL [Mass/Vol] 48.8 mg/dL Normal [facility] Comment on above: Result Comment: . AGE VERY LOW LOW NORMAL HIGH 0-19 Y < 35 < 40 40-45 ---- 20-24 Y ---- < 40 >45 ---- >24 Y ---- < 40 40-60 >60 . Performed By: #### F OLA2 #### [facility] [address] [place] [address] Cholesterol in LDL [Mass/Vol] 74 mg/dL Normal 0 - 99 [facility] Comment on above: Result Comment: . NEAR BORD AGE DESIRABLE OPTIMAL HIGH HIGH VERY HIGH 0-19 Y 0 - 109 --- 110-129 >/= 130 ---- 20-24 Y 0 - 119 --- 120-159 >/= 160 ---- >24 Y 0 - 99 100-129 130-159 160-189 >/=190 . Performed By: #### F OLA2 #### [facility] [address] [place] [address] Cholesterol in VLDL [Mass/Vol] 21 mg/dL Normal 0 - 40 [facility] Comment on above: Performed By: #### F OLA2 #### [facility] [address] [place] [address] Cholesterol.total/Chol esterol in HDL [Mass ratio] 3.0 {ratio} Normal [facility] Comment on above: Result Comment: REF VALUES DESIRABLE < 3.4 HIGH RISK > 5.0 Performed By: #### F OLA2 #### [facility] [address] [place] [address] Triglyceride [Mass/Vol] 107 mg/dL Normal 0 - 149 [facility] Comment on above: Result Comment: . AGE [...] dosing. Performed By: #### F OLA2 #### [facility] [address] [place] [address] THYROXINE,FREEon 02-02-2023 THYROXINE,FREE 0.88 ng/dL Normal 0.61 - 1.12 [facility] [place] Comment on above: Result Comment: Thyr oxine Free testing is performed using different testing methodology at [facility] than at [facility]. Direct result comparisons should only be made [...] draw. Performed By: #### T 4FRE #### [facility] [address] [place] [address] TSHon 02-02-2023 TSH Qn 3.64 m[IU]/L Normal 0.44 - 3.98 [facility] Comment on above: Result Comment: TSH testing is performed using different testing methodology at [facility] than at [facility]. Direct result comparisons should only be made within the same method. Performed By: #### T SH2 #### [facility] [address] [place] [address] VITAMIN B12on 02-02-2023 Cobalamin (Vitamin B12) [Mass/Vol] 258 pg/mL Normal 211 - 911 [facility] Comment on above: Performed By: #### V TB12 #### [facility] [address] [place] [address] VITAMIN D, 25-HYDROXYon VITAMIN D, 25-HYDROXY 27 ng/mL Abnormal [facility] Comment on above: Result Comment: . DEFICIENCY: < 20 NG/ML INSUFFICIENCY: 20-29 NG/ML SUFFICIENCY: 30-100 NG/ML THIS ASSAY ACCURATELY QUANTIFIES THE SUM OF VITAMIN D3, 25-HYDROXY AND VIT D2,25-HYDROXY. Performed By: #### F OLA2 #### [facility] [address] [place] [address] Laboratory - Chemistry and C hemistry - challengeon 09-10-2022 Albumin [Mass/Vol] 4.3 g/dL Normal 3.6 - 5.1 g/dL [facility] Albumin/Globulin [Mass ratio] 1.3 {ratio} Normal 1.0 - 2.5 [facility].; [facility] ALP [Catalytic activity/Vol] 71 U/L Normal 37 - 153 U/L [facility]. ALT [Catalytic activity/Vol] 18 U/L Normal 6 - 29 U/L [facility].; [facility]. AST [Catalytic activity/Vol] 17 U/L Normal 10 - 35 U/L [facility].; [place] [employer] [facility]. Bilirubin [Mass/Vol] 0.4 mg/dL Normal 0.2 - 1 .2 mg/dL [facility].; [place] [employer] [facility]. Bilirubin Ql (U) Negative Normal [facility].; [facility]. Calcium [Mass/Vol] 9.4 mg/dL Normal 8.6 - 10. 4 mg/dL [facility].; [place] [facility], [facility]. Chloride [Moles/Vol] 101 mmol/L Normal 98 - 11 0 mmol/L [facility].; [place] [facility] [facility]. CO2 [Moles/Vol] 28 mmol/L Normal 20 - 32 mmol/L [facility].; [place] [facility]. Cobalamin (Vitamin B12) [Mass/Vol] 296 pg/mL Normal 200 - 1100 pg/mL [facility].; [place] [facility], [employer]. Creatinine [Mass/Vol] 0.85 mg/dL Normal 0.50 - 1.03 mg/dL [facility].; [place] [facility], [facility]. GFR/1.73 sq M.predicted among non-blacks MDRD (S/P/Bld) [Vol rate/Area] 81 mL/min/{1.73_m2} Normal [facility].; [facility]. Glucose [Mass/Vol] 98 mg/dL Normal 65 - 99 mg/dL [facility].; [place] [facility], [employer]. Ketones Ql (U) Negative Normal [facility].; [place] [facility], [employer]. Magnesium [Mass/Vol] 2.2 mg/dL Normal 1.5 - 2 .5 mg/dL [facility].; [place] [employer]. pH (U) 5.5 [pH] Normal [facility].; [place] [facility]. Potassium [Moles/Vol] 4.7 mmol/L Normal 3.5 - 5.3 mmol/L [facility]; [place] [facility] Protein [Mass/Vol] 7.6 g/dL Normal 6.1 - 8.1 g/dL [facility].; [place] [facility], [facility] Sodium [Moles/Vol] 136 mmol/L Normal 135 - 146 mmol/L [facility].; [facility] Specific gravity (U) [Rel density] 1.020 Normal [facility]; [place] [facility] Urea nitrogen [Mass/Vol] 18 mg/dL Normal 7 - 25 mg/dL [facility].; [place] [facility] [facility] Urobilinogen Qn (U) 0.2 mg/dL Normal [facility]; [place] [facility] Laboratory - Hematology and Cell countson 09-10-2022 Basophils (Bld) [#/Vol] 0.007 10*3/uL Normal 0 - 200 {cells/uL} [facility].; [place] [employer] [facility] Basophils/100 WBC (Bld) 0.1 % Normal [facility]; [facility]. Eosinophils (Bld) [#/Vol] 0 10*3/uL Abnormal 15 - 500 {cells/uL} [facility].; [place] [facility], [facility]. Eosinophils/100 WBC (Bld) 0.0 % Normal [facility].; [place] [facility] Erythrocyte distribution width (RBC) [Ratio] 14.4 % Normal 11.0 - 15.0 % [facility].; [place] [facility]. HbA1c (Bld) [Mass fraction] 5.6 % Normal [facility].; [place] [facility], [facility]. Hematocrit (Bld) [Volume fraction] 41.8 % Normal 35.0 - 45.0 % [facility].; [place] [facility], [facility] Hemoglobin (Bld) [Mass/Vol] 13.4 g/dL Normal 11.7 - 15.5 g/dL [facility].; [facility]. Hemoglobin Ql (U) Trace, hemolyzed Abnormal [facility].; [facility], [facility] Lymphocytes (Bld) [#/Vol] 1.213 10*3/uL Normal 850 - 3900 {cells/uL} [facility].; [facility]. Lymphocytes/100 WBC (Bld) 18.1 % Normal [facility].; [facility]. MCH (RBC) [Entitic mass] 27.2 pg Normal 27.0 - 33.0 pg [facility].; [place] [facility], [facility]. MCHC (RBC) [Mass/Vol] 32.1 g/dL Normal 32.0 - 36.0 g/dL [facility].; [facility]. MCV (RBC) [Entitic vol] 84.8 fL Normal 80.0 - 100.0 fL [facility].; [facility]. Monocytes (Bld) [#/Vol] 0.469 10*3/uL Normal 200 - 950 {cells/uL} [facility].; [place] [employer], [facility]. Monocytes/100 WBC (Bld) 7.0 % Normal [facility].; [facility]. Neutrophils (Bld) [#/Vol] 5.012 10*3/uL Normal 1500 - 7800 {cells/uL} [facility].; [place] [employer], [facility]. Neutrophils/100 WBC (Bld) 74.8 % Normal [facility].; [place] [facility], [facility]. Platelet mean volume (Bld) [Entitic vol] 9.7 fL Normal 7.5 - 12.5 fL [place] [facility] [facility].; [employer], [facility]. Platelets (Bld) [#/Vol] 239 10*3/uL Normal 140 - 400 [facility].; [place] [facility], [facility]. RBC (Bld) [#/Vol] 4.93 10*6/uL Normal 3.80 - 5.1 0 {Million/uL} [place] [facility], [facility].; [place] [employer], [employer]. WBC (Bld) [#/Vol] 6.7 10*3/uL Normal 3.8 - 10.8 [facility]; [place] [facility] [facility] Laboratory - Specimen inform ationon 09-10-2022 Appearance (U) clear Normal [facility]; [place] [employer], [facility] Color (U) Dark Yellow Normal [facility]; [place] [employer] [facility] Laboratory - Urinalysison Glucose Test strip (U) [Mass/Vol] Negative Normal [facility]; [place] [employer] [facility] Leukocyte esterase Test strip Ql (U) Negative Normal [facility]; [place] [employer], [employer] Protein Ql (U) Negative Normal [facility]; [employer], [employer] Laboratory - UrinalysisOrder ed By: Ashley Torres on 09-10-2022 Nitrite Ql (U) Positive Abnormal [facility]; [place] [employer] No Panel Informationon 09-10 BUN/CREATININE RATIO NOT APPLICABLE Normal - [facility]; [place] [employer] [facility] CULTURE, URINE, ROUTINE SEE NOTE Abnormal [facility]; [place] [employer] [facility] GLOBULIN 3.3 Normal 1.9 - 3.7 [facility]; [place] [employer], [facility]. TSH W/REFLEX TO FT4 3.38 {mIU/L} Normal [facility]; [employer], [facility] Laboratory - Chemistry and C hemistry - challengeon 02-28-2022 Calcium [Mass/Vol] 9.0 mg/dL Normal 8.6 - 10. 4 mg/dL [facility]; [employer], [facility]. Chloride [Moles/Vol] 104 mmol/L Normal 98 - 11 0 mmol/L [facility].; [place] [employer], [facility]. CO2 [Moles/Vol] 25 mmol/L Normal 20 - 32 mmol/L [facility].; [employer], [facility]. Creatinine [Mass/Vol] 0.85 mg/dL Normal 0.50 - 1.05 mg/dL [facility].; [place] [employer], [facility]. GFR/1.73 sq M.predicted among blacks MDRD (S/P/Bld) [Vol rate/Area] 90 mL/min/{1.73_m2} Normal [facility]; [facility] Glucose [Mass/Vol] 94 mg/dL Normal 65 - 99 mg/dL [facility]; [facility] Potassium [Moles/Vol] 4.3 mmol/L Normal 3.5 - 5.3 mmol/L [facility]; [facility] Sodium [Moles/Vol] 139 mmol/L Normal 135 - 146 mmol/L [facility]; [facility] Urea nitrogen [Mass/Vol] 17 mg/dL Normal 7 - 25 mg/dL [facility]; [facility] [facility] [place] No Panel Informationon 02-28 BUN/CREATININE RATIO NOT APPLICABLE Normal 6 - 22 [facility] [place]; [facility] eGFR NON-AFR. [place] ISLANDER 76 Normal Ho [facility]; [facility] [place] US Unspecified body regionon 02-27-2022 IMPRESSION: 1. [...] MRI examination to exclude a lipomatous malignancy. [facility] Unspecified body regionOr dered By: Won Hagan on 02-27-2022 [employer] [facility] Work Phone: [place] Unspecified body regionon 02-26-2022 Radiology Study observation (narrative) [facility] Laboratory - Chemistry and C hemistry - challengeon 02-21-2022 Calcium [Mass/Vol] 9.5 mg/dL Normal 8.6 - 10. 4 mg/dL [place] [employer] [email or web address] Chloride [Moles/Vol] 102 mmol/L Normal 98 - 11 0 mmol/L [email or web address] CO2 [Moles/Vol] 28 mmol/L Normal 20 - 32 mmol/L [email or web address] Creatinine [Mass/Vol] 0.93 mg/dL Normal 0.50 - 1.05 mg/dL [employer] GFR/1.73 sq M.predicted among blacks MDRD (S/P/Bld) [Vol rate/Area] 81 mL/min/{1.73_m2} Normal [employer] Glucose [Mass/Vol] 94 mg/dL Normal 65 - 99 mg/dL [email or web address] Natriuretic peptide B (Bld) [Mass/Vol] 84 pg/mL Normal [email or web address] Potassium [Moles/Vol] 4.4 mmol/L Normal 3.5 - 5.3 mmol/L [email or web address] Sodium [Moles/Vol] 140 mmol/L Normal 135 - 146 mmol/L [employer] Urea nitrogen [Mass/Vol] 14 mg/dL Normal 7 - 25 mg/dL [facility].; [place] [employer] [facility]. Laboratory - Hematology and Cell countson 02-21-2022 Basophils (Bld) [#/Vol] 0.011 10*3/uL Normal 0 - 200 {cells/uL} [facility].; [facility]. Basophils/100 WBC (Bld) 0.2 % Normal [facility] Eosinophils (Bld) [#/Vol] 0 10*3/uL Abnormal 15 - 500 {cells/uL} [facility].; [facility]. Eosinophils/100 WBC (Bld) 0.0 % Normal [facility].; [place] [employer] [facility], [facility] Erythrocyte distribution width (RBC) [Ratio] 15.0 % Normal 11.0 - 15.0 % [facility].; [place] [employer] [facility], [facility] Hematocrit (Bld) [Volume fraction] 40.8 % Normal 35.0 - 45.0 % [facility].; [place] [employer] [facility], [facility]. Hemoglobin (Bld) [Mass/Vol] 12.9 g/dL Normal 11.7 - 15.5 g/dL [facility].; [facility]. Lymphocytes (Bld) [#/Vol] 1.025 10*3/uL Normal 850 - 3900 {cells/uL} [facility].; [place] [employer] [facility], [facility] Lymphocytes/100 WBC (Bld) 18.3 % Normal [facility].; [place] [employer] [facility], [facility]. MCH (RBC) [Entitic mass] 25.5 pg Abnormal 27.0 - 33.0 pg [facility].; [place] [employer] [facility], [facility]. MCHC (RBC) [Mass/Vol] 31.6 g/dL Abnormal 32.0 - 36.0 g/dL [facility].; [place] [employer] [facility], [facility]. MCV (RBC) [Entitic vol] 80.8 fL Normal 80.0 - 100.0 fL [facility].; [place] [employer] [facility], [facility]. Monocytes (Bld) [#/Vol] 0.42 10*3/uL Normal 200 - 950 {cells/uL} [facility] [place]; [facility] [place] Monocytes/100 WBC (Bld) 7.5 % Normal [facility] [place]; [facility] [place] Neutrophils (Bld) [#/Vol] 4.144 10*3/uL Normal 1500 - 7800 {cells/uL} [facility] [place]; [facility] [place] Neutrophils/100 WBC (Bld) 74 % Normal [facility] [place]; [facility] [place] Platelet mean volume (Bld) [Entitic vol] 10.0 fL Normal 7.5 - 12.5 fL [facility] [place]; [facility] [place] Platelets (Bld) [#/Vol] 227 10*3/uL Normal 140 - 400 [facility] [place]; [facility] [place] RBC (Bld) [#/Vol] 5.05 10*6/uL Normal 3.80 - 5.1 0 {Million/uL} [facility] [place]; [facility] [place] WBC (Bld) [#/Vol] 5.6 10*3/uL Normal 3.8 - 10.8 [facility] [place]; [facility] No Panel Informationon 02-21 BUN/CREATININE RATIO NOT APPLICABLE Normal 6 - 22 [facility] [place]; [facility] [place] eGFR NON-AFR. [place]ER 68 Normal [facility]; [facility] TSH W/REFLEX TO FT4 2.98 {mIU/L} Normal [facility]; [facility] [place] Laboratory - Chemistry and C hemistry - challengeon 08-12-2021 Albumin [Mass/Vol] 4.0 g/dL Normal 3.6 - 5.1 g/dL [facility] [place]; [facility] Albumin/Globulin [Mass ratio] 1.3 {ratio} Normal 1.0 - 2.5 [facility] [place]; [facility] ALP [Catalytic activity/Vol] 71 U/L Normal 37 - 153 U/L [facility] [place]; [facility] [place] ALT [Catalytic activity/Vol] 15 U/L Normal 6 - 29 U/L [facility].; [place] [employer] [facility]. AST [Catalytic activity/Vol] 13 U/L Normal 10 - 35 U/L [facility].; [place] [employer] [facility], [facility]. Bilirubin [Mass/Vol] 0.3 mg/dL Normal 0.2 - 1 .2 mg/dL [facility].; [place] [employer], [facility]. Bilirubin Ql (U) Negative Normal [facility].; [facility]. Calcium [Mass/Vol] 9.4 mg/dL Normal 8.6 - 10. 4 mg/dL [facility].; [place] [employer] [facility], [facility]. Chloride [Moles/Vol] 103 mmol/L Normal 98 - 11 0 mmol/L [facility].; [place] [employer] [facility], [facility]. CO2 [Moles/Vol] 25 mmol/L Normal 20 - 32 mmol/L [facility].; [place] [employer] [facility], [facility]. Creatinine [Mass/Vol] 1.05 mg/dL Normal 0.50 - 1.05 mg/dL [facility].; [place] [employer] [facility], [facility]. GFR/1.73 sq M.predicted among blacks MDRD (S/P/Bld) [Vol rate/Area] 70 mL/min/{1.73_m2} Normal [facility].; [place] [employer], [employer]. Glucose [Mass/Vol] 93 mg/dL Normal 65 - 99 mg/dL [facility].; [employer], [facility]. Ketones Ql (U) Negative Normal [facility].; [place] [employer], [facility]. pH (U) 5.0 [pH] Abnormal [facility].; [place] [employer], [facility]. Potassium [Moles/Vol] 4.4 mmol/L Normal 3.5 - 5.3 mmol/L [facility].; [place] [employer] [facility], [facility]. Protein [Mass/Vol] 7.1 g/dL Normal 6.1 - 8.1 g/dL [facility].; [employer], [employer]. Sodium [Moles/Vol] 138 mmol/L Normal 135 - 146 mmol/L [facility].; [facility] Specific gravity (U) [Rel density] 1.020 Normal [facility] [place]; [place] [employer] [facility] Urea nitrogen [Mass/Vol] 20 mg/dL Normal 7 - 25 mg/dL [facility]; [place] [employer] [facility] Urobilinogen Qn (U) 0.2 mg/dL Normal [facility].; [facility] Laboratory - Hematology and Cell countson 08-12-2021 Basophils (Bld) [#/Vol] 0.007 10*3/uL Normal 0 - 200 {cells/uL} [facility].; [facility] Basophils/100 WBC (Bld) 0.1 % Normal [facility] [place]; [facility] Eosinophils (Bld) [#/Vol] 0.455 10*3/uL Normal 15 - 500 {cells/uL} [facility].; [facility] Eosinophils/100 WBC (Bld) 6.6 % Normal [facility] [place]; [place] [employer] [facility] Erythrocyte distribution width (RBC) [Ratio] 21.9 % Abnormal 11.0 - 15.0 % [facility]; [facility] Hematocrit (Bld) [Volume fraction] 36.5 % Normal 35.0 - 45.0 % [facility]; [place] [employer] [facility] Hemoglobin (Bld) [Mass/Vol] 11.3 g/dL Abnormal 11.7 - 15.5 g/dL [facility].; [place] [employer] [facility] Hemoglobin Ql (U) trace-lysed Normal [facility] [place]; [facility] Lymphocytes (Bld) [#/Vol] 1.622 10*3/uL Normal 850 - 3900 {cells/uL} [facility].; [facility] Lymphocytes/100 WBC (Bld) 23.5 % Normal [facility]; [place] [employer] [facility] MCH (RBC) [Entitic mass] 27.0 pg Normal 27.0 - 33.0 pg [facility]; [place] [employer] [facility]. MCHC (RBC) [Mass/Vol] 31.0 g/dL Abnormal 32.0 - 36.0 g/dL [facility].; [employer], [employer]. MCV (RBC) [Entitic vol] 87.3 fL Normal 80.0 - 100.0 fL [place] [employer] [facility].; [employer], [employer]. Monocytes (Bld) [#/Vol] 0.545 10*3/uL Normal 200 - 950 {cells/uL} [place] [employer] [place] [employer] Monocytes/100 WBC (Bld) 7.9 % Normal [place] [employer] [facility].; [place] [employer] Neutrophils (Bld) [#/Vol] 4.271 10*3/uL Normal 1500 - 7800 {cells/uL} [place] [employer] Neutrophils/100 WBC (Bld) 61.9 % Normal [place] [employer] Platelet mean volume (Bld) [Entitic vol] 9.8 fL Normal 7.5 - 12.5 fL [place] [employer] [facility].; [employer] Platelets (Bld) [#/Vol] 292 10*3/uL Normal 140 - 400 [place] [employer].; [employer] RBC (Bld) [#/Vol] 4.18 10*6/uL Normal 3.80 - 5.1 0 {Million/uL} [employer], [employer].; [employer] WBC (Bld) [#/Vol] 6.9 10*3/uL Normal 3.8 - 10.8 [place] [employer].; [employer], [employer]. Laboratory - Specimen inform ationon 08-12-2021 Appearance (U) cloudy Abnormal [employer], [employer]. Color (U) dark Yellow Normal [employer] [facility].; [employer] Laboratory - Urinalysison Glucose Test strip (U) [Mass/Vol] Negative Normal [employer].; [employer] Leukocyte esterase Test strip Ql (U) moderate Abnormal [employer].; [employer]. Nitrite Ql (U) Negative Normal [place] [employer]. Protein Ql (U) Negative Normal [place] [employer]. No Panel Informationon 08-12 BUN/CREATININE RATIO NOT APPLICABLE Normal 6 - 22 [place] [employer]. CBC MORPHOLOGY SEE NOTE Normal [employer]. Work Phone: CULTURE, URINE, ROUTINE SEE NOTE Normal [employer]. eGFR NON-AFR. [place]ER 59 Normal [facility] [employer]. GLOBULIN 3.1 Normal 1.9 - 3.7 [place] [employer]. Basic Metabolic Panelon Anion gap [Moles/Vol] 6 mmol/L Normal 3-13 [facility] Comment on above: Performed By: #### H TYLER VARMA, PHOS3, BMP3, MG3 ####[place] [address] [employer] [place] [address]#### [employer] ####[facility] [place] [address] Calcium [Mass/Vol] 8.7 mg/dL Normal 8.4-10.4 [facility] Comment on above: Performed By: #### H TYLER VARMA, PHOS3, BMP3, MG3 ####[place] [address] [employer] [facility] [address]#### [employer]SM ####[facility] [place] [address] CO2 [Moles/Vol] 27 mmol/L Normal 22-30 [facility] Comment on above: Performed By: #### H TYLER VARMA, PHOS3, BMP3, MG3 ####[place] [address] [employer] [facility] [address]#### [employer]SM ####[facility] [place] [address] Glucose [Mass/Vol] 96 mg/dL Normal 70-100 [facility] Comment on above: Performed By: #### H AVANI, TYLER, PHOS3, BMP3, MG3 ####[place] [address] [place] [address]#### [employer]SM ####[facility] [place] [address] Urea nitrogen [Mass/Vol] 53 mg/dL High 7-20 [facility] Comment on above: Performed By: #### H AVANI, TYLER, PHOS3, BMP3, MG3 ####[place] [address] [place] [address]#### [employer]SM ####[facility] [place] [address] Creatinine [Mass/Vol] 2.25 mg/dL High 0.52-1.25 [facility] Comment on above: Performed By: #### H AVANI, MDIFF, PHOS3, BMP3, MG3 ####[facility] [employer] [id number] [place] [address]#### OSM ####[facility] [facility] [place] [address] GFR/1.73 sq M.predicted among blacks MDRD (S/P/Bld) [Vol rate/Area] 27.9 mL/min/{1.73_m2} Abnormal >60 [facility] Comment on above: Performed By: #### H AVANI, MDIFF, PHOS3, BMP3, MG3 ####[facility] [employer] [id number] [place] [address]#### OSM ####[facility] [facility] [place] [address] GFR/1.73 sq M.predicted among non-blacks MDRD (S/P/Bld) [Vol rate/Area] 24.0 mL/min/{1.73_m2} Abnormal >60 [facility] Comment on above: Result Comment: KDIG O guidelines provide the following GFR categories:Stage GFR(ml/min/1.73 m2) TermsG1 >=90 Normal or highG2 60-89 Mildly decreased*G3a 45-59 Mildly to moderately eiigyrufzC0s 30-44 Moderately to severely decreasedG4 15-29 Severely [...] #### H TYLER VARMA, PHOS3, BMP3, MG3 ####[place] [address] [place] [address]#### OSM ####[facility] [place] [address] Potassium [Moles/Vol] 4.6 mmol/L Normal 3.5-5.1 [facility] Comment on above: Performed By: #### H TYLER VARMA, PHOS3, BMP3, MG3 ####[place] [address] [place] [address]#### [employer]SM ####[facility] [place] [address] Chloride [Moles/Vol] 105 mmol/L Normal 98-107 [facility] Comment on above: Performed By: #### H TYLER VARMA, PHOS3, BMP3, MG3 ####[place] [address] [place] [address]#### [employer]SM ####[facility] [place] [address] Sodium [Moles/Vol] 139 mmol/L Normal 135-145 [facility] Comment on above: Performed By: #### H TYLER VARMA, PHOS3, BMP3, MG3 ####[place] [address] [place] [address]#### OSM ####[facility] [place] [address] Basic Metabolic PanelOrdered By: Silver Nick on 07-03-2021 Anion gap [Moles/Vol] 6 mmol/L 3 - 13 mmol/L [facility] Work Phone: [phone] Calcium [Mass/Vol] 8.7 mg/dL 8.4 - 10. 4 mg/dL [facility] Work Phone: [phone] Chloride [Moles/Vol] 105 mmol/L 98 - 10 7 mmol/L [facility] Work Phone: [phone] CO2 [Moles/Vol] 27 mmol/L 22 - 30 mmol/L [facility] Work Phone: [phone] Creatinine [Mass/Vol] 2.25 mg/dL High 0.52 - 1.25 mg/dL [facility] Work Phone: [phone] EGFR IF NonAfrican Syrian 24.0 mL/min Abnormal >60 [facility] Work Phone: [phone] GFR/1.73 sq M.predicted among blacks MDRD (S/P/Bld) [Vol rate/Area] 27.9 mL/min/{1.73_m2} Abnormal >60 [facility] Work Phone: [phone] Glucose [Mass/Vol] 96 mg/dL 70 - 100 mg/dL [facility] Work Phone: [phone] Potassium [Moles/Vol] 4.6 mmol/L 3.5 - 5.1 mmol/L [facility] Work Phone: [phone] Sodium [Moles/Vol] 139 mmol/L 135 - 145 mmol/L [facility] Work Phone: [phone] Urea nitrogen (BldV) [Mass/Vol] 53 mg/dL High 7 - 20 mg/dL [facility] Work Phone: [phone] CBC auto differentialOrdered By: Michelle Coelho on 07-03-2021 Hematocrit (Bld) [Volume fraction] 28.3 % Low 35.0 - 47.0 % [facility] Work Phone: [phone] Hemoglobin.gastrointes tinal spec 1 Ql (Stl) 8.9 g/dL Low 11.7 - 16.0 g/dL [facility] Work Phone: [phone] Interpretation and review of laboratory results Abnormal [facility] Work Phone: [phone] MCH (RBC) [Entitic mass] 24.2 pg Low 26.0 - 34.0 pg [facility] Work Phone: 1 MCHC (RBC) [Mass/Vol] 31.5 % Low 32.0 - 36.0 % [employer] Work Phone: 1 MCV (RBC) [Entitic vol] 76.9 fL Low 79.0 - 98.0 fL [employer] Work Phone: 1 Platelet distribution width (Bld) [Ratio] 24.5 % High 11.5 - 14.5 % [employer] Work Phone: 1 Platelet mean volume (Bld) [Entitic vol] 6.8 fL Low 7.4 - 10.4 fL [employer] Work Phone: 1 Platelets (Bld) [#/Vol] 229 10*3/uL 140 - 440 10*3/uL [employer] Work Phone: 1 RBC (Bld) [#/Vol] 3.68 10*6/uL Low 3.80 - 5.2 0 10*6/uL [employer] Work Phone: 1 WBC (Bld) [#/Vol] 5.0 10*3/uL 3.6 - 10.7 10*3/uL [employer] Work Phone: 1 [employer] Work Phone: [phone] [employer] Work Phone: [phone] Glucose,Bedsideon 07-03-2021 Glucose [Mass/Vol] 121 mg/dL High 70-100 [facility] [employer] Comment on above: Result Comment: Test performed by glucose meter. Results may be 10%-15% lowerthan serum/plasma values. (CLIA ID [id number]) Performed By: #### B GLU ####[id number] [place] [address] Glucose [Mass/Vol] 121 mg/dL High 70-100 [facility] [employer] [facility] Comment on above: Result Comment: Test performed by glucose meter. Results may be 10%-15% lowerthan serum/plasma values. (CLIA ID [id number]) Performed By: #### B GLU ####[facility] [employer] [address] Glucose [Mass/Vol] 103 mg/dL High 70-100 [facility] Comment on above: Result Comment: Test performed by glucose meter. Results may be 10%-15% lowerthan serum/plasma values. (CLIA ID [id number]) Performed By: #### B GLU ####[place] [address] [place], [place] Hemogram w/ Autodiffon 07-03 Erythrocyte distribution width (RBC) [Ratio] 24.5 % High 11.5-14.5 [facility] Comment on above: Performed By: #### H TYLER VARMA, PHOS3, BMP3, MG3 ####[facility] [employer] [address] #### OSM ####[facility] [employer] [id number] [place] [address] Hematocrit (Bld) [Volume fraction] 28.3 % Low 35.0-47.0 [facility] Comment on above: Performed By: #### H TYLER VARMA, PHOS3, BMP3, MG3 ####[facility] [employer] [address] [place], [place] #### OSM ####[facility] [employer] [address] [place] [address] Hemoglobin (Bld) [Mass/Vol] 8.9 g/dL Low 11.7-16.0 [facility] Comment on above: Performed By: #### H AVANI, TYLER, PHOS3, BMP3, MG3 ####[facility] [employer] [address] #### OSM ####[facility] [employer] [address] [place] [address] MCH (RBC) [Entitic mass] 24.2 pg Low 26.0-34.0 [facility] Comment on above: Performed By: #### H AVANI, TYLER, PHOS3, BMP3, MG3 ####[facility] [employer] [address] #### OSM ####[facility] [place] [address] MCHC 31.5 % Low 32.0-36.0 [facility] Comment on above: Performed By: #### H EMDF, MDIFF, PHOS3, BMP3, MG3 ####[place] [address] [facility] [place] #### OSM ####[facility] [place] [address] MCV (RBC) [Entitic vol] 76.9 fL Low 79.0-98.0 [facility] Comment on above: Performed By: #### H EMDF, MDIFF, PHOS3, BMP3, MG3 ####[place] [address] . [facility] [place] #### OSM ####[place] [address] [place] [address] Platelet mean volume (Bld) [Entitic vol] 6.8 fL Low 7.4-10.4 [facility] Comment on above: Performed By: #### H EMDF, MDIFF, PHOS3, BMP3, MG3 ####[place] [address] . [facility] [place] #### OSM ####[facility] [place] [address] Platelets (Bld) [#/Vol] 229 10*3/uL Normal 140-440 [facility] Comment on above: Performed By: #### H EMDF, MDIFF, PHOS3, BMP3, MG3 ####[address] [facility] [place] #### OSM ####[facility] [place] [address] RBC (Bld) [#/Vol] 3.68 10*6/uL Low 3.80-5.20 [facility] Comment on above: Performed By: #### H EMDF, MDIFF, PHOS3, BMP3, MG3 ####[place] [address] [facility] [place] #### OSM ####[facility] [place] [address] WBC (Bld) [#/Vol] 5.0 10*3/uL Normal 3.6-10.7 [facility] Comment on above: Performed By: #### H TYLER VARMA, PHOS3, BMP3, MG3 ####[facility] [place] #### OSM ####[facility] [place] [address] Magnesiumon 07-03-2021 Magnesium [Mass/Vol] 1.6 mg/dL Normal 1.6-2.3 [facility] Comment on above: Performed By: #### H TYLER VARMA, PHOS3, BMP3, MG3 ####[address] #### OSM ####[place] [address] [place] [address] MagnesiumOrdered By: Michelle lauren on 07-03-2021 Magnesium [Mass/Vol] 1.6 mg/dL 1.6 - 2 .3 mg/dL [facility] Work Phone: Manual Diffon 07-03-2021 Abs Baso Cnt 0.0 10*3/uL Normal 0.0-0.2 [facility] Comment on above: Performed By: #### H TYLER VARMA, PHOS3, BMP3, MG3 ####[facility] [place] #### OSM ####[facility] [place] [address] Abs Eosin Cnt 0.2 10*3/uL Normal 0.0-0.5 [facility] Comment on above: Performed By: #### H TYLER VARMA, PHOS3, BMP3, MG3 ####[facility] [place] #### OSM ####[facility] [place] [address] Abs Lymph Cnt 1.2 10*3/uL Normal 1.1-4.5 [facility] Comment on above: Performed By: #### H EMDF, MDIFF, PHOS3, BMP3, MG3 ####[facility] [address] [facility] #### OSM ####[facility] [address] [facility] [place] [address] Abs Monocyte Cnt 0.6 10*3/uL Normal 0.2-1.1 [facility] [facility] Comment on above: Performed By: #### H EMDF, MDIFF, PHOS3, BMP3, MG3 ####[facility] [address] [facility], [place] #### OSM ####[facility] [address] [facility] [place] [address] Abs Neutrophile Cnt 3.1 10*3/uL Normal 2.2-8.2 [facility] Comment on above: Performed By: #### H EMDF, MDIFF, PHOS3, BMP3, MG3 ####[facility] [employer] [address] [facility], [place] #### OSM ####[facility] [employer] [address] [facility] [place] [address] Bands 7 % High 0-3 [facility] Comment on above: Performed By: #### H EMDF, MDIFF, PHOS3, BMP3, MG3 ####[facility] [employer] Cmdduy[address] [facility], [place] #### OSM ####[facility] [employer] [address] [place] [address] Basophils 0 % Normal 0-2 [facility] Comment on above: Performed By: #### H EMDF, MDIFF, PHOS3, BMP3, MG3 ####[facility] [employer] Gocdhd[address] [facility] [place] #### OSM ####[facility] [address] [facility] [place] [address] Cells counted 100 Normal [facility] Comment on above: Performed By: #### H EMDF, MDIFF, PHOS3, BMP3, MG3 ####[facility] [address] [facility], [place] #### OSM ####[facility] [address] [place] [address] Eosinophils 4 % Normal 1-6 [facility] Comment on above: Performed By: #### H EMDF, MDIFF, PHOS3, BMP3, MG3 ####[facility] [address] [facility], [place] #### OSM ####[facility] [address] [place] [address] Lymphocytes 23 % Normal 20-40 [facility] Comment on above: Performed By: #### H EMDF, MDIFF, PHOS3, BMP3, MG3 ####[facility] [address] [facility] #### OSM ####[facility] [address] [place] [address] Monocytes 11 % High 2-10 [facility] Comment on above: Performed By: #### H EMDF, MDIFF, PHOS3, BMP3, MG3 ####[facility] R[address]wtm[address] [facility], [place] #### OSM ####[facility] [address] [place] [address] RBC Morphology See Prev Normal [facility] Comment on above: Performed By: #### H EMDF, MDIFF, PHOS3, BMP3, MG3 ####[facility] As[address] [facility], [place] #### OSM ####[facility] [address] [place] [address] Seg Neutrophils 55 % Normal 40-80 [facility] Comment on above: Performed By: #### H EMDF, MDIFF, PHOS3, BMP3, MG3 ####[facility] [address] [facility], [place] #### OSM ####[facility] [address] [place] [address] Manual DifferentialOrdered B y: Michelle Coelho on 07-03-2021 Absolute Baso # 0.0 10*3/uL 0.0 - 0.2 10*3/uL [facility] Work Phone: [phone] Absolute Eos # 0.2 10*3/uL 0.0 - 0.5 10*3/uL [facility] Work Phone: [phone] Absolute Lymph # 1.2 10*3/uL 1.1 - 4.5 10*3/uL [facility] Work Phone: [phone] Absolute [place] # 0.6 10*3/uL 0.2 - 1.1 10*3/uL [facility] Work Phone: [phone] Absolute Neut # 3.1 10*3/uL 2.2 - 8.2 10*3/uL [facility] Work Phone: 1 [phone] Bands 7 % High 0 - 3 % [facility] Work Phone: [phone] Basophils/100 WBC (Bld) 0 % 0 - 2 % [facility] Work Phone: 1 22 Eosinophils/100 WBC (Bld) 4 % 1 - 6 % [facility] Work Phone: [phone] Interpretation and review of laboratory results Abnormal [facility] Work Phone: [phone] Lymphocytes/100 WBC (Bld) 23 % 20 - 40 % [facility] Work Phone: 22 Monocytes/100 WBC (Bld) 11 % High 2 - 10 % [facility] Work Phone: 1 22 RBC (Bld) [#/Vol] See Prev [facility] Work Phone: [phone] Seg Neutrophils 55 % 40 - 80 % [facility] Work Phone: [phone] TOTAL CELLS COUNTED 100 [facility] Work Phone: [phone] [facility] Work Phone: [phone] [facility] Work Phone: [phone] No Panel InformationOrdered By: Michelle Coelho on 07-03-2021 Interpretation and review of laboratory results Abnormal [facility] Work Phone: [phone] [facility] Work Phone: [phone] [facility] Work Phone: [phone] OsmolalityOrdered By: Lindsey Joyce on 07-03-2021 Interpretation and review of laboratory results Abnormal [facility] Work Phone: [phone] Serum Osmolality 308 mosm/kg High 280 - 300 mosm/kg [facility] Work Phone: [phone] [facility] Work Phone: [phone] [facility] Work Phone: [phone] Osmolality,Serumon 1 Osmolality,Serum 308 mosm/kg High 280-300 [facility] Comment on above: Performed By: #### H TYLER VARMA, PHOS3, BMP3, MG3 ####[employer] [address] [place] [address]#### OSM ####[employer] [address] [place] [address] POCT GlucoseOrdered By: Jessica Soni on 07-03-2021 Glucose [Mass/Vol] 121 mg/dL High 70 - 100 mg/dL [facility] Work Phone: [phone] Interpretation and review of laboratory results Abnormal [facility] Work Phone: [phone] [facility] Work Phone: [phone] [facility] Work Phone: [phone] Glucose [Mass/Vol] 121 mg/dL High 70 - 100 mg/dL [facility] Work Phone: [phone] Interpretation and review of laboratory results Abnormal [facility] Work Phone: [phone] [facility] Work Phone: [phone] [facility] Work Phone: [phone] Glucose [Mass/Vol] 103 mg/dL High 70 - 100 mg/dL [facility] Work Phone: [phone] Interpretation and review of laboratory results Abnormal [facility] Work Phone: [phone] [facility] Work Phone: [phone] [facility] Work Phone: [phone] Phosphoruson 07-03-2021 Phosphate [Mass/Vol] 6.3 mg/dL High 2.5-4.5 [facility] [employer] System Comment on above: Performed By: #### H TYLER VARMA, PHOS3, BMP3, MG3 ####[employer] [address] [place] [address]#### OSM ####[address] [place] [address] PhosphorusOrdered By: Michelle pearson on 07-03-2021 Phosphate [Mass/Vol] 6.3 mg/dL High 2.5 - 4 .5 mg/dL [facility] Work Phone: Basic Metabolic Panelon Calcium [Mass/Vol] 8.8 mg/dL Normal 8.4-10.4 [facility] Comment on above: Performed By: #### O SM ####[address] [place] [address]#### LFT3, HEMDF, MDIFF, BMP3, MG3, PHOS3 ####[place] [address] [place], [place] Anion gap [Moles/Vol] 6 mmol/L Normal 3-13 [facility] Comment on above: Performed By: #### O SM ####[facility] [employer] [address] [place] [facility] [place] [address]#### LFT3, HEMDF, MDIFF, BMP3, MG3, PHOS3 ####[facility] [employer] [address] [place], [place] CO2 [Moles/Vol] 26 mmol/L Normal 22-30 [facility] Comment on above: Performed By: #### O SM ####[facility] [employer] [address] [place] [address]#### LFT3, HEMDF, MDIFF, BMP3, MG3, PHOS3 ####[facility] [employer] [address] [place], [place] Creatinine [Mass/Vol] 2.26 mg/dL High 0.52-1.25 [facility] Comment on above: Performed By: #### O SM ####[address] [facility] [place] [address]#### LFT3, HEMDF, MDIFF, BMP3, MG3, PHOS3 ####[place] [address] [place], [place] GFR/1.73 sq M.predicted among blacks MDRD (S/P/Bld) [Vol rate/Area] 27.7 mL/min/{1.73_m2} Abnormal >60 [facility] Comment on above: Performed By: #### O SM ####[address] [place] [address]#### LFT3, HEMDF, MDIFF, BMP3, MG3, PHOS3 ####[address] [place] [address] GFR/1.73 sq M.predicted among non-blacks MDRD (S/P/Bld) [Vol rate/Area] 23.9 mL/min/{1.73_m2} Abnormal >60 [facility] Comment on above: Result Comment: KDIG O guidelines provide the following GFR categories:Stage GFR(ml/min/1.73 m2) TermsG1 >=90 Normal or highG2 60-89 Mildly decreased*G3a 45-59 Mildly to moderately ejvcfyubyQ1e 30-44 Moderately to severely decreasedG4 15-29 Severely [...] creatinine secretion. Performed By: #### O SM ####[address] [place] [address] [place] [address]#### LFT3, HEMDF, MDIFF, BMP3, MG3, PHOS3 ####[address] [place] [address] Glucose [Mass/Vol] 95 mg/dL Normal 70-100 [facility] [employer] Comment on above: Performed By: #### O SM ####[address] [place] [address] [place] [address]#### LFT3, HEMDF, MDIFF, BMP3, MG3, PHOS3 ####[address] [place] [address] Urea nitrogen [Mass/Vol] 60 mg/dL High 7-20 [facility] Comment on above: Performed By: #### O SM ####[place] [address] [place] [address]#### LFT3, HEMDF, MDIFF, BMP3, MG3, PHOS3 ####[place] [address] [place] [address] Potassium [Moles/Vol] 5.1 mmol/L Normal 3.5-5.1 [facility] Comment on above: Performed By: #### O SM ####[address] [place] [address]#### LFT3, HEMDF, MDIFF, BMP3, MG3, PHOS3 ####[place] [address] [place] [address] Sodium [Moles/Vol] 139 mmol/L Normal 135-145 [facility] Comment on above: Performed By: #### O SM ####[place] [address] [place] [address]#### LFT3, HEMDF, MDIFF, BMP3, MG3, PHOS3 ####[place] [address] [facility], [place] Chloride [Moles/Vol] 107 mmol/L Normal 98-107 [facility] Comment on above: Performed By: #### O SM ####[address] [place] [address]#### LFT3, HEMDF, MDIFF, BMP3, MG3, PHOS3 ####[place] [address] [place] [address] Basic Metabolic PanelOrdered By: Silver Nick on 07-02-2021 Anion gap [Moles/Vol] 6 mmol/L 3 - 13 mmol/L [facility] Work Phone: Calcium [Mass/Vol] 8.8 mg/dL 8.4 - 10. 4 mg/dL [facility] Work Phone: Chloride [Moles/Vol] 107 mmol/L 98 - 10 7 mmol/L [facility] Work Phone: [phone] CO2 [Moles/Vol] 26 mmol/L 22 - 30 mmol/L [facility] Work Phone: [phone] Creatinine [Mass/Vol] 2.26 mg/dL High 0.52 - 1.25 mg/dL [facility] Work Phone: [phone] EGFR IF NonAfrican Syrian 23.9 mL/min Abnormal >60 [facility] Work Phone: [phone] GFR/1.73 sq M.predicted among blacks MDRD (S/P/Bld) [Vol rate/Area] 27.7 mL/min/{1.73_m2} Abnormal >60 [facility] Work Phone: [phone] Glucose [Mass/Vol] 95 mg/dL 70 - 100 mg/dL [facility] Work Phone: [phone] Potassium [Moles/Vol] 5.1 mmol/L 3.5 - 5.1 mmol/L [facility] Work Phone: [phone] Sodium [Moles/Vol] 139 mmol/L 135 - 145 mmol/L [facility] Work Phone: [phone] Urea nitrogen (BldV) [Mass/Vol] 60 mg/dL High 7 - 20 mg/dL [facility] Work Phone: [phone] CBC auto differentialOrdered By: Michelle Coelho on 07-02-2021 Hematocrit (Bld) [Volume fraction] 27.4 % Low 35.0 - 47.0 % [facility] Work Phone: [phone] Hemoglobin.gastrointes tinal spec 1 Ql (Stl) 8.7 g/dL Low 11.7 - 16.0 g/dL [facility] Work Phone: [phone] Interpretation and review of laboratory results Abnormal [facility] Work Phone: [phone] MCH (RBC) [Entitic mass] 23.8 pg Low 26.0 - 34.0 pg [facility] Work Phone: [phone] MCHC (RBC) [Mass/Vol] 31.7 % Low 32.0 - 36.0 % [facility] Work Phone: [phone] MCV (RBC) [Entitic vol] 75.1 fL Low 79.0 - 98.0 fL [facility] Work Phone: Platelet distribution width (Bld) [Ratio] 24.8 % High 11.5 - 14.5 % [facility] Work Phone: [phone] Platelet mean volume (Bld) [Entitic vol] 7.3 fL Low 7.4 - 10.4 fL [facility] Work Phone: [phone] Platelets (Bld) [#/Vol] 224 10*3/uL 140 - 440 10*3/uL [facility] Work Phone: [phone] RBC (Bld) [#/Vol] 3.64 10*6/uL Low 3.80 - 5.2 0 10*6/uL [facility] Work Phone: [phone] WBC (Bld) [#/Vol] 4.9 10*3/uL 3.6 - 10.7 10*3/uL [facility] Work Phone: [phone] [facility] Work Phone: [phone] [facility] Work Phone: [phone] Glucose,Bedsideon 07-02-2021 Glucose [Mass/Vol] 164 mg/dL High 70-100 [facility] Comment on above: Result Comment: Test performed by glucose meter. Results may be 10%-15% lowerthan serum/plasma values. (CLIA ID [id number]) Performed By: #### B GLU ####[facility] [address] [place] [address] Glucose [Mass/Vol] 128 mg/dL High 70-100 [facility] Comment on above: Result Comment: Test performed by glucose meter. Results may be 10%-15% lowerthan serum/plasma values. (CLIA ID [id number]) Performed By: #### B GLU ####[employer] [address] [place] [address] Glucose [Mass/Vol] 139 mg/dL High 70-100 [facility] Comment on above: Result Comment: Test performed by glucose meter. Results may be 10%-15% lowerthan serum/plasma values. (CLIA ID [id number]) Performed By: #### B GLU ####[address] [place], [place] Glucose [Mass/Vol] 108 mg/dL High 70-100 [facility] Comment on above: Result Comment: Test performed by glucose meter. Results may be 10%-15% lowerthan serum/plasma values. (CLIA ID [id number]) Performed By: #### B GLU ####[address] Hemogram w/ Autodiffon 07-02 Erythrocyte distribution width (RBC) [Ratio] 24.8 % High 11.5-14.5 [facility] Comment on above: Performed By: #### O SM ####[address] [place], [place] #### LFT3, HEMDF, MDIFF, BMP3, MG3, PHOS3 ####[address] [place], [place] Hematocrit (Bld) [Volume fraction] 27.4 % Low 35.0-47.0 [facility] Comment on above: Performed By: #### O SM ####[address] [place], [place] #### LFT3, HEMDF, MDIFF, BMP3, MG3, PHOS3 ####[address] [address] [place], [place] Hemoglobin (Bld) [Mass/Vol] 8.7 g/dL Low 11.7-16.0 [facility] Comment on above: Performed By: #### O SM ####[address] [place] #### LFT3, HEMDF, MDIFF, BMP3, MG3, PHOS3 ####[address] [address] [place], [place] MCH (RBC) [Entitic mass] 23.8 pg Low 26.0-34.0 [facility] Comment on above: Performed By: #### O SM ####[address] [place], [place] #### LFT3, HEMDF, MDIFF, BMP3, MG3, PHOS3 ####[address] [place], [place] MCHC 31.7 % Low 32.0-36.0 [facility] Comment on above: Performed By: #### O SM ####[place] [address] [place], [place] #### LFT3, HEMDF, MDIFF, BMP3, MG3, PHOS3 ####[facility] [place], [place] MCV (RBC) [Entitic vol] 75.1 fL Low 79.0-98.0 [facility] Comment on above: Performed By: #### O SM ####[facility] [employer] [address] [place], [place] #### LFT3, HEMDF, MDIFF, BMP3, MG3, PHOS3 ####[address] [address] [place], [place] Platelet mean volume (Bld) [Entitic vol] 7.3 fL Low 7.4-10.4 [facility] Comment on above: Performed By: #### O SM ####[facility] [employer] [address] [facility] [address] [place], [place] #### LFT3, HEMDF, MDIFF, BMP3, MG3, PHOS3 ####[place] [address] [place], [place] Platelets (Bld) [#/Vol] 224 10*3/uL Normal 140-440 [facility] Comment on above: Performed By: #### O SM ####[facility] [employer] [place] [address] [place], [place] #### LFT3, HEMDF, MDIFF, BMP3, MG3, PHOS3 ####[place] [address] [place], [place] RBC (Bld) [#/Vol] 3.64 10*6/uL Low 3.80-5.20 [facility] Comment on above: Performed By: #### O SM ####[facility] [employer] [address] [place] #### LFT3, HEMDF, MDIFF, BMP3, MG3, PHOS3 ####[address] [address] [place], [place] WBC (Bld) [#/Vol] 4.9 10*3/uL Normal 3.6-10.7 [facility] Comment on above: Performed By: #### O SM ####[address] [place] #### LFT3, HEMDF, MDIFF, BMP3, MG3, PHOS3 ####[place] [place], [place] Hepatic Functionon 1 ALP [Catalytic activity/Vol] 70 U/L Normal 38-126 [facility] Comment on above: Performed By: #### O SM ####[address] [place], [place] #### LFT3, HEMDF, MDIFF, BMP3, MG3, PHOS3 ####[address] ALT [Catalytic activity/Vol] 23 U/L Normal 0-34 [facility] Comment on above: Result Comment: The ALT test is performed by an updated assay method.Please note that the reference intervals have beenchanged and are now sex specific. Performed By: #### O SM ####[address] [place] #### LFT3, HEMDF, MDIFF, BMP3, MG3, PHOS3 ####[place] [place] AST [Catalytic activity/Vol] 25 U/L Normal 15-46 [facility] Comment on above: Performed By: #### O SM ####[address] [place], [place] #### LFT3, HEMDF, MDIFF, BMP3, MG3, PHOS3 ####[address] [address] [place] Bilirubin [Mass/Vol] 0.5 mg/dL Normal 0.2-1.3 [facility] Comment on above: Performed By: #### O SM ####[facility] [employer] [place] [address] [place] [place] [address]#### LFT3, HEMDF, MDIFF, BMP3, MG3, PHOS3 ####[facility] [place] Bilirubin.indirect [Mass/Vol] 0.0 mg/dL Normal 0.0-0.3 [facility] Comment on above: Performed By: #### O SM ####[facility] [employer] [place] [address] [place] [address]#### LFT3, HEMDF, MDIFF, BMP3, MG3, PHOS3 ####[facility] [employer] [address] [place], [place] Protein [Mass/Vol] 6.1 g/dL Low 6.3-8.2 [facility] Comment on above: Performed By: #### O SM ####[address] [place] [address]#### LFT3, HEMDF, MDIFF, BMP3, MG3, PHOS3 ####[facility] [employer] [address] [place] Albumin [Mass/Vol] 2.8 g/dL Low 3.5-5.0 [facility] Comment on above: Performed By: #### O SM ####[address] [place] [address]#### LFT3, HEMDF, MDIFF, BMP3, MG3, PHOS3 ####[facility] [employer] [address] [place], [place] Hepatic Function PanelOrdere d By: Tello Sterling on 07-02-2021 Albumin [Mass/Vol] 2.8 g/dL Low 3.5 - 5.0 g/dL [facility] Work Phone: ALP (Bld) [Catalytic activity/Vol] 70 U/L 38 - 126 U/L [facility] Work Phone: ALT [Catalytic activity/Vol] 23 U/L 0 - 34 U/L [facility] Work Phone: AST [Catalytic activity/Vol] 25 U/L 15 - 46 U/L [facility] Work Phone: [phone] Bilirubin [Mass/Vol] 0.5 mg/dL 0.2 - 1 .3 mg/dL [facility] Work Phone: Bilirubin.indirect [Mass/Vol] 0.0 mg/dL 0.0 - 0.3 mg/dL [facility] Work Phone: Free PSA/Total PSA [Mass fraction] 6.1 g/dL Low 6.3 - 8.2 g/dL [facility] Work Phone: Magnesiumon 07-02-2021 Magnesium [Mass/Vol] 1.7 mg/dL Normal 1.6-2.3 [facility] Comment on above: Performed By: #### O SM ####[employer] [place] [address]#### LFT3, HEMDF, MDIFF, BMP3, MG3, PHOS3 ####[facility] [employer] [address] [address] MagnesiumOrdered By: Michelle lauren on 07-02-2021 Magnesium [Mass/Vol] 1.7 mg/dL 1.6 - 2 .3 mg/dL [facility] Work Phone: Manual Diffon 07-02-2021 Abs Baso Cnt 0.0 10*3/uL Normal 0.0-0.2 [facility] Comment on above: Performed By: #### O SM ####[address] [place] [address]#### LFT3, HEMDF, MDIFF, BMP3, MG3, PHOS3 ####[employer] [place] [address] Abs Eosin Cnt 0.2 10*3/uL Normal 0.0-0.5 [facility] Comment on above: Performed By: #### O SM ####[employer] [address] [address]#### LFT3, HEMDF, MDIFF, BMP3, MG3, PHOS3 ####[facility] [address] [place], [place] Abs Lymph Cnt 0.8 10*3/uL Low 1.1-4.5 [facility] Comment on above: Performed By: #### O SM ####[facility] [place] [address]#### LFT3, HEMDF, MDIFF, BMP3, MG3, PHOS3 ####[facility] [place], [place] Abs Monocyte Cnt 0.3 10*3/uL Normal 0.2-1.1 [facility] Comment on above: Performed By: #### O SM ####[address] [place], [place] #### LFT3, HEMDF, MDIFF, BMP3, MG3, PHOS3 ####[place] [place], [place] Abs Neutrophile Cnt 3.5 10*3/uL Normal 2.2-8.2 [facility] Comment on above: Performed By: #### O SM ####[address] [place], [place] #### LFT3, HEMDF, MDIFF, BMP3, MG3, PHOS3 ####[place] [place], [place] Bands 6 % High 0-3 [facility] Comment on above: Performed By: #### O SM ####[address] [place] [address]#### LFT3, HEMDF, MDIFF, BMP3, MG3, PHOS3 ####[facility] [address] [place], [place] Basophils 1 % Normal 0-2 [facility] Comment on above: Performed By: #### O SM ####[address] [facility] [place] [address]#### LFT3, HEMDF, MDIFF, BMP3, MG3, PHOS3 ####[place] [address] [facility] [place] Cells counted 100 Normal [facility] Comment on above: Performed By: #### O SM ####[facility] [address] [place] [address]#### LFT3, HEMDF, MDIFF, BMP3, MG3, PHOS3 ####[facility] [address] [facility] [place] Eosinophils 4 % Normal 1-6 [facility] Comment on above: Performed By: #### O SM ####[facility] [address] [place] [address]#### LFT3, HEMDF, MDIFF, BMP3, MG3, PHOS3 ####[facility] [address] [facility] [place] Lymphocytes 17 % Low 20-40 [facility] Comment on above: Performed By: #### O SM ####[address] [place] [address]#### LFT3, HEMDF, MDIFF, BMP3, MG3, PHOS3 ####[facility] [address] [facility] [place] Monocytes 7 % Normal 2-10 [facility] Comment on above: Performed By: #### O SM ####[place] [address] [place] [address]#### LFT3, HEMDF, MDIFF, BMP3, MG3, PHOS3 ####[facility] [address] [facility] [place] RBC Morphology See Prev Normal [facility] Comment on above: Performed By: #### O SM ####[facility] [address] [place] [address]#### LFT3, HEMDF, MDIFF, BMP3, MG3, PHOS3 ####[facility] [address] [facility] [place] Seg Neutrophils 65 % Normal 40-80 [facility] Comment on above: Performed By: #### O SM ####[facility] [address] [place] [address]#### LFT3, HEMDF, MDIFF, BMP3, MG3, PHOS3 ####[facility] [address] [place] [address] Manual DifferentialOrdered B y: Michelle Coelho on 07-02-2021 Absolute Baso # 0.0 10*3/uL 0.0 - 0.2 10*3/uL [facility] Work Phone: 22 Absolute Eos # 0.2 10*3/uL 0.0 - 0.5 10*3/uL [facility] Work Phone: 22 Absolute Lymph # 0.8 10*3/uL Low 1.1 - 4.5 10*3/uL [facility] Work Phone: 22 Absolute [place] # 0.3 10*3/uL 0.2 - 1.1 10*3/uL [facility] Work Phone: 22 Absolute Neut # 3.5 10*3/uL 2.2 - 8.2 10*3/uL [facility] Work Phone: 22 Bands 6 % High 0 - 3 % [facility] Work Phone: 22 Basophils/100 WBC (Bld) 1 % 0 - 2 % [facility] Work Phone: 22 Eosinophils/100 WBC (Bld) 4 % 1 - 6 % [facility] Work Phone: Interpretation and review of laboratory results Abnormal [facility] Work Phone: 22 Lymphocytes/100 WBC (Bld) 17 % Low 20 - 40 % [facility] Work Phone: 22 Monocytes/100 WBC (Bld) 7 % 2 - 10 % [facility] Work Phone: 22 RBC (Bld) [#/Vol] See Prev [facility] Work Phone: 22 Seg Neutrophils 65 % 40 - 80 % [facility] Work Phone: 22 TOTAL CELLS COUNTED 100 [facility] Work Phone: 22 [facility] Work Phone: 22 [facility] Work Phone: 22 No Panel InformationOrdered By: Michelle Coelho on 07-02-2021 Interpretation and review of laboratory results Abnormal [facility] Work Phone: [phone] [facility] Work Phone: [phone] [facility] Work Phone: [phone] OsmolalityOrdered By: Lindsey Joyce on 07-02-2021 Interpretation and review of laboratory results Abnormal [facility] Work Phone: [phone] Serum Osmolality 313 mosm/kg High 280 - 300 mosm/kg [facility] Work Phone: [phone] [facility] Work Phone: [phone] [facility] Work Phone: [phone] Osmolality,Serumon Osmolality,Serum 313 mosm/kg High 280-300 [facility] [employer] Comment on above: Performed By: #### O SM ####[facility] [id number] [place] [address]#### LFT3, HEMDF, MDIFF, BMP3, MG3, PHOS3 ####[facility] [id number] [place] [address] POCT GlucoseOrdered By: Jessica Soni on 07-02-2021 Glucose [Mass/Vol] 164 mg/dL High 70 - 100 mg/dL [facility] Work Phone: [phone] Interpretation and review of laboratory results Abnormal [facility] Work Phone: [phone] [facility] Work Phone: [phone] [facility] Work Phone: [phone] Glucose [Mass/Vol] 128 mg/dL High 70 - 100 mg/dL [facility] Work Phone: [phone] Interpretation and review of laboratory results Abnormal [facility] Work Phone: [phone] [facility] Work Phone: [phone] [facility] Work Phone: [phone] Glucose [Mass/Vol] 139 mg/dL High 70 - 100 mg/dL [facility] Work Phone: [phone] Interpretation and review of laboratory results Abnormal [facility] Work Phone: [phone] [facility] Work Phone: [phone] [facility] Work Phone: [phone] Glucose [Mass/Vol] 108 mg/dL High 70 - 100 mg/dL [facility] Work Phone: [phone] Interpretation and review of laboratory results Abnormal [facility] Work Phone: [phone] [facility] Work Phone: [phone] [facility] Work Phone: [phone] Phosphoruson 07-02-2021 Phosphate [Mass/Vol] 6.1 mg/dL High 2.5-4.5 [facility] Comment on above: Performed By: #### O SM ####[facility] [place] [address]#### LFT3, HEMDF, MDIFF, BMP3, MG3, PHOS3 ####[place] [place] [address] PhosphorusOrdered By: Michelle pearson on 07-02-2021 Phosphate [Mass/Vol] 6.1 mg/dL High 2.5 - 4 .5 mg/dL [facility] Work Phone: Basic Metabolic Panelon Calcium [Mass/Vol] 8.4 mg/dL Normal 8.4-10.4 [facility] Comment on above: Performed By: #### P HOS3, MDIFF, MG3, HEMDF, BMP3 ####[facility] [employer] [address] [facility], [place] #### OSM ####[facility] [facility] [place] [address] Anion gap [Moles/Vol] 4 mmol/L Normal 3-13 [facility] Comment on above: Performed By: #### P HOS3, MDIFF, MG3, HEMDF, BMP3 ####[facility] [employer] [address] [facility] [address]#### OSM ####[facility] [place] [address] CO2 [Moles/Vol] 24 mmol/L Normal 22-30 [facility] Comment on above: Performed By: #### P HOS3, MDIFF, MG3, HEMDF, BMP3 ####[place] [address] [facility] [place] [address]#### OSM ####[facility] [place] [address] Creatinine [Mass/Vol] 2.36 mg/dL High 0.52-1.25 [facility] Comment on above: Performed By: #### P TYLER SILVA, MG3, HEMDF, BMP3 ####[employer] [place] [address]#### OSM ####[facility] [employer] [address] [place] [address] GFR/1.73 sq M.predicted among blacks MDRD (S/P/Bld) [Vol rate/Area] 26.3 mL/min/{1.73_m2} Abnormal >60 [facility] Comment on above: Performed By: #### P TYLER SILVA, MG3, HEMDF, BMP3 ####[facility] [employer] [place] [address]#### OSM ####[facility] [employer] [address] [place] [address] GFR/1.73 sq M.predicted among non-blacks MDRD (S/P/Bld) [Vol rate/Area] 22.7 mL/min/{1.73_m2} Abnormal >60 [facility] Comment on above: Result Comment: KDIG O guidelines provide the following GFR categories:Stage GFR(ml/min/1.73 m2) TermsG1 >=90 Normal or highG2 60-89 Mildly decreased*G3a 45-59 Mildly to moderately xkywvlghcR5r 30-44 Moderately to severely decreasedG4 15-29 Severely [...] renal tubular creatinine secretion. Performed By: #### TYLER BETANCOURT, MG3, HEMDF, BMP3 ####[facility] [facility] [place] [address]#### OSM ####[facility] [place] [address] Glucose [Mass/Vol] 109 mg/dL High 70-100 [facility] Comment on above: Performed By: #### P HOS3, MDIFF, MG3, HEMDF, BMP3 ####[facility] [facility] [place] #### OSM ####[facility] [place] [address] Urea nitrogen [Mass/Vol] 61 mg/dL High 7-20 [facility] Comment on above: Performed By: #### P HOS3, MDIFF, MG3, HEMDF, BMP3 ####[address] [facility] [place] #### OSM ####[facility] [facility] [place] [address] Basic Metabolic PanelOrdered By: Silver Nick on 07-01-2021 Chloride [Moles/Vol] 106 mmol/L Normal 98-107 [facility] Work Phone: Comment on above: Performed By: #### P HOS3, MDIFF, MG3, HEMDF, BMP3 ####[place] [facility], [place] #### OSM ####[facility] NE[place]wenthe [place] [address] Potassium [Moles/Vol] 5.0 mmol/L Normal 3.5-5.1 [facility] Work Phone: Comment on above: Performed By: #### P HOS3, MDIFF, MG3, HEMDF, BMP3 ####[facility] [employer] [address] [facility] [place] #### OSM ####[facility] [place] [address] Sodium [Moles/Vol] 135 mmol/L Normal 135-145 [facility] Work Phone: Comment on above: Performed By: #### P HOS3, MDIFF, MG3, HEMDF, BMP3 ####[employer] [place] [address]#### OSM ####[employer] [place] [address] Anion gap [Moles/Vol] 4 mmol/L 3 - 13 mmol/L [facility] Work Phone: [phone] Calcium [Mass/Vol] 8.4 mg/dL 8.4 - 10. 4 mg/dL [facility] Work Phone: CO2 [Moles/Vol] 24 mmol/L 22 - 30 mmol/L [facility] Work Phone: Creatinine [Mass/Vol] 2.36 mg/dL High 0.52 - 1.25 mg/dL [facility] Work Phone: EGFR IF NonAfrican Syrian 22.7 mL/min Abnormal >60 [facility] Work Phone: GFR/1.73 sq M.predicted among blacks MDRD (S/P/Bld) [Vol rate/Area] 26.3 mL/min/{1.73_m2} Abnormal >60 [facility] Work Phone: [phone] Glucose [Mass/Vol] 109 mg/dL High 70 - 100 mg/dL [facility] Work Phone: [phone] Urea nitrogen (BldV) [Mass/Vol] 61 mg/dL High 7 - 20 mg/dL [facility] Work Phone: [phone] CBC auto differentialOrdered By: Michelle Coelho on 07-01-2021 Hematocrit (Bld) [Volume fraction] 27.4 % Low 35.0 - 47.0 % [facility] Work Phone: [phone] Hemoglobin.gastrointes tinal spec 1 Ql (Stl) 8.8 g/dL Low 11.7 - 16.0 g/dL [facility] Work Phone: [phone] Interpretation and review of laboratory results Abnormal [facility] Work Phone: [phone] MCH (RBC) [Entitic mass] 24.0 pg Low 26.0 - 34.0 pg [facility] Work Phone: MCHC (RBC) [Mass/Vol] 32.2 % 32.0 - 36.0 % [facility] Work Phone: [phone] MCV (RBC) [Entitic vol] 74.4 fL Low 79.0 - 98.0 fL [facility] Work Phone: [phone] Platelet distribution width (Bld) [Ratio] 25.1 % High 11.5 - 14.5 % [facility] Work Phone: [phone] Platelet mean volume (Bld) [Entitic vol] 7.1 fL Low 7.4 - 10.4 fL [facility] Work Phone: [phone] Platelets (Bld) [#/Vol] 216 10*3/uL 140 - 440 10*3/uL [facility] Work Phone: [phone] RBC (Bld) [#/Vol] 3.69 10*6/uL Low 3.80 - 5.2 0 10*6/uL [facility] Work Phone: [phone] WBC (Bld) [#/Vol] 5.5 10*3/uL 3.6 - 10.7 10*3/uL [facility] Work Phone: [phone] [facility] Work Phone: [phone] [facility] Work Phone: [phone] Glucose,Bedsideon 07-01-2021 Glucose [Mass/Vol] 187 mg/dL High 70-100 [facility] Comment on above: Result Comment: Test performed by glucose meter. Results may be 10%-15% lowerthan serum/plasma values. (CLIA ID [id number]) Performed By: #### B GLU ####[employer] [address] [place] [address] Glucose [Mass/Vol] 165 mg/dL High 70-100 [facility] Comment on above: Result Comment: Test performed by glucose meter. Results may be 10%-15% lowerthan serum/plasma values. (CLIA ID [id number]) Performed By: #### B GLU ####[employer] [address] [place] [address] Glucose [Mass/Vol] 148 mg/dL High 70-100 [facility] Comment on above: Result Comment: Test performed by glucose meter. Results may be 10%-15% lowerthan serum/plasma values. (CLIA ID [id number]) Performed By: #### B GLU ####[address] Hemogram w/ Autodiffon 07-01 Erythrocyte distribution width (RBC) [Ratio] 25.1 % High 11.5-14.5 [facility] Comment on above: Performed By: #### P HOS3, MDIFF, MG3, HEMDF, BMP3 ####[address] #### OSM ####[address] [place] Hematocrit (Bld) [Volume fraction] 27.4 % Low 35.0-47.0 [facility] Comment on above: Performed By: #### P HOS3, MDIFF, MG3, HEMDF, BMP3 ####[address] #### OSM ####[address] [place] [address] Hemoglobin (Bld) [Mass/Vol] 8.8 g/dL Low 11.7-16.0 [facility] Comment on above: Performed By: #### P HOS3, MDIFF, MG3, HEMDF, BMP3 ####[address] #### OSM ####[facility] [facility] [place], [place] MCH (RBC) [Entitic mass] 24.0 pg Low 26.0-34.0 [facility] Comment on above: Performed By: #### P HOS3, MDIFF, MG3, HEMDF, BMP3 ####[address] #### OSM ####[address] [place] MCHC 32.2 % Normal 32.0-36.0 [facility] Comment on above: Performed By: #### P HOS3, MDIFF, MG3, HEMDF, BMP3 ####[place] [facility], [place] #### OSM ####[facility] [facility] [place] [address] MCV (RBC) [Entitic vol] 74.4 fL Low 79.0-98.0 [facility] Comment on above: Performed By: #### P HOS3, MDIFF, MG3, HEMDF, BMP3 ####[address], [place] #### OSM ####[facility] [place] [address] Platelet mean volume (Bld) [Entitic vol] 7.1 fL Low 7.4-10.4 [facility] Comment on above: Performed By: #### P HOS3, MDIFF, MG3, HEMDF, BMP3 ####[address], [place] #### OSM ####[place] [address] [place] [address] Platelets (Bld) [#/Vol] 216 10*3/uL Normal 140-440 [facility] Comment on above: Performed By: #### P HOS3, MDIFF, MG3, HEMDF, BMP3 ####[address], [place] #### OSM ####[facility] [place] [address] RBC (Bld) [#/Vol] 3.69 10*6/uL Low 3.80-5.20 [facility] Comment on above: Performed By: #### P HOS3, MDIFF, MG3, HEMDF, BMP3 ####[address], [place] #### OSM ####[facility] [facility] [place] [address] WBC (Bld) [#/Vol] 5.5 10*3/uL Normal 3.6-10.7 [facility] Comment on above: Performed By: #### P HOS3, MDIFF, MG3, HEMDF, BMP3 ####[facility] [place], [place] #### OSM ####[facility] [place] [address] Magnesiumon 07-01-2021 Magnesium [Mass/Vol] 1.8 mg/dL Normal 1.6-2.3 [facility] Comment on above: Performed By: #### P HOS3, MDIFF, MG3, HEMDF, BMP3 ####[address] #### OSM ####[facility] [place] [address] MagnesiumOrdered By: Michelle lauren on 07-01-2021 Magnesium [Mass/Vol] 1.8 mg/dL 1.6 - 2 .3 mg/dL [facility] Work Phone: Manual Diffon 07-01-2021 Abs Baso Cnt 0.0 10*3/uL Normal 0.0-0.2 [facility] Comment on above: Performed By: #### P HOS3, MDIFF, MG3, HEMDF, BMP3 ####[facility] [employer] [address] [place], [place] #### OSM ####[facility] [employer] [address] [place] [address] Abs Eosin Cnt 0.2 10*3/uL Normal 0.0-0.5 [facility] Comment on above: Performed By: #### P HOS3, MDIFF, MG3, HEMDF, BMP3 ####[facility] [employer] [address] [place], [place] #### OSM ####[facility] [place] [address] Abs Lymph Cnt 0.8 10*3/uL Low 1.1-4.5 [facility] Comment on above: Performed By: #### P HOS3, MDIFF, MG3, HEMDF, BMP3 ####[facility] [address] [facility] #### OSM ####[facility] [place] [address] Abs Monocyte Cnt 0.1 10*3/uL Low 0.2-1.1 [facility] Comment on above: Performed By: #### P HOS3, MDIFF, MG3, HEMDF, BMP3 ####[facility] [address] [facility] [place] #### OSM ####[facility] [place] [address] Abs Neutrophile Cnt 4.2 10*3/uL Normal 2.2-8.2 [facility] Comment on above: Performed By: #### P HOS3, MDIFF, MG3, HEMDF, BMP3 ####[place] [address] [facility] [place] #### OSM ####[facility] [place] [address] Bands 0 % Normal 0-3 [facility] Comment on above: Performed By: #### P HOS3, MDIFF, MG3, HEMDF, BMP3 ####[facility] [facility] [place] #### OSM ####[facility] [place] [address] Basophils 0 % Normal 0-2 [facility] Comment on above: Performed By: #### P HOS3, MDIFF, MG3, HEMDF, BMP3 ####[facility] [address] [facility] [place] #### OSM ####[facility] [place] [address] Cells counted 100 Normal [facility] Comment on above: Performed By: #### P HOS3, MDIFF, MG3, HEMDF, BMP3 ####[facility] [facility] [place] #### OSM ####[facility] [place] [address] Eosinophils 3 % Normal 1-6 [facility] Comment on above: Performed By: #### P HOS3, MDIFF, MG3, HEMDF, BMP3 ####[facility] [address] [facility] [address]#### OSM ####[facility] [address] [place] [address] Lymphocytes 14 % Low 20-40 [facility] Comment on above: Performed By: #### P HOS3, MDIFF, MG3, HEMDF, BMP3 ####[facility] [address] [facility] [place] [address]#### OSM ####[facility] [address] [place] [address] Metamyelocytes 3 % Abnormal <1 [facility] Comment on above: Performed By: #### P HOS3, MDIFF, MG3, HEMDF, BMP3 ####[facility] [address] [facility] [place] #### OSM ####[facility] [address] [facility] [place] [address] Monocytes 2 % Normal 2-10 [facility] Comment on above: Performed By: #### P HOS3, MDIFF, MG3, HEMDF, BMP3 ####[facility] [address] [facility] [place] #### OSM ####[facility] [facility] [place] [address] Myelocytes 1 % Abnormal <1 [facility] Comment on above: Performed By: #### P HOS3, MDIFF, MG3, HEMDF, BMP3 ####[facility] [address] [facility] [place] #### OSM ####[facility] [address] [place] [address] RBC Morphology See Prev Normal [facility] Comment on above: Performed By: #### P HOS3, MDIFF, MG3, HEMDF, BMP3 ####[facility] [address] [facility] [place] #### OSM ####[facility] [address] [place] [address] Seg Neutrophils 77 % Normal 40-80 [facility] Comment on above: Performed By: #### P HOS3, MDIFF, MG3, HEMDF, BMP3 ####[employer] [address] [place] [address]#### OSM ####[facility] [employer] [address] [place] [address] Manual DifferentialOrdered B y: Michelle Coelho on 07-01-2021 Absolute Baso # 0.0 10*3/uL 0.0 - 0.2 10*3/uL [facility] Work Phone: [phone] Absolute Eos # 0.2 10*3/uL 0.0 - 0.5 10*3/uL [facility] Work Phone: [phone] Absolute Lymph # 0.8 10*3/uL Low 1.1 - 4.5 10*3/uL [facility] Work Phone: 22 Absolute [place] # 0.1 10*3/uL Low 0.2 - 1.1 10*3/uL [facility] Work Phone: 22 Absolute Neut # 4.2 10*3/uL 2.2 - 8.2 10*3/uL [facility] Work Phone: [phone] Bands 0 % 0 - 3 % [facility] Work Phone: 22 Basophils/100 WBC (Bld) 0 % 0 - 2 % [facility] Work Phone: 22 Eosinophils/100 WBC (Bld) 3 % 1 - 6 % [facility] Work Phone: [phone] Interpretation and review of laboratory results Abnormal [facility] Work Phone: [phone] Lymphocytes/100 WBC (Bld) 14 % Low 20 - 40 % [facility] Work Phone: 22 Metamyelocytes 3 % Abnormal <1 [facility] Work Phone: 22 Monocytes/100 WBC (Bld) 2 % 2 - 10 % [facility] Work Phone: [phone] Myelocytes 1 % Abnormal <1 [facility] Work Phone: 22 RBC (Bld) [#/Vol] See Prev [facility] Work Phone: [phone] Seg Neutrophils 77 % 40 - 80 % [facility] Work Phone: [phone] TOTAL CELLS COUNTED 100 [facility] Work Phone: [phone] [facility] Work Phone: [phone] [facility] Work Phone: [phone] Panel InformationOrdered By: Michelle Coelho on 07-01-2021 Interpretation and review of laboratory results Abnormal [facility] Work Phone: [phone] [facility] Work Phone: [phone] [facility] Work Phone: [phone] OsmolalityOrdered By: Lindsey Joyce on 07-01-2021 Interpretation and review of laboratory results Abnormal [facility] Work Phone: [phone] Serum Osmolality 309 mosm/kg High 280 - 300 mosm/kg [facility] Work Phone: [phone] [facility] Work Phone: [phone] [facility] Work Phone: [phone] Osmolality,Serumon Osmolality,Serum 309 mosm/kg High 280-300 [facility] Comment on above: Performed By: #### P HOS3, MDIFF, MG3, HEMDF, BMP3 ####[employer] [address] [place] [address]#### OSM ####[employer] [address] [place] [address] POCT GlucoseOrdered By: Jessica Soni on 07-01-2021 Glucose [Mass/Vol] 187 mg/dL High 70 - 100 mg/dL [facility] Work Phone: [phone] Interpretation and review of laboratory results Abnormal [facility] Work Phone: [phone] [facility] Work Phone: [phone] [facility] Work Phone: [phone] Glucose [Mass/Vol] 148 mg/dL High 70 - 100 mg/dL [facility] Work Phone: [phone] Interpretation and review of laboratory results Abnormal [facility] Work Phone: [phone] [facility] Work Phone: [phone] [facility] Work Phone: POCT GlucoseOrdered By: Gennaro katherin Parsons on 07-01-2021 Glucose [Mass/Vol] 165 mg/dL High 70 - 100 mg/dL [facility] Work Phone: Interpretation and review of laboratory results Abnormal [facility] Work Phone: [phone] [facility] Work Phone: [phone] [facility] Work Phone: [phone] Phosphoruson 07-01-2021 Phosphate [Mass/Vol] 6.4 mg/dL High 2.5-4.5 [facility] Comment on above: Performed By: #### P HOS3, MDIFF, MG3, HEMDF, BMP3 ####[facility] [employer] [place], [place] #### OSM ####[facility] [employer] [address] [place] [address] PhosphorusOrdered By: Michelle pearson on 07-01-2021 Phosphate [Mass/Vol] 6.4 mg/dL High 2.5 - 4 .5 mg/dL [facility] Work Phone: Basic Metabolic Panelon Calcium [Mass/Vol] 8.5 mg/dL Normal 8.4-10.4 [facility] Comment on above: Performed By: #### B MP3, PHOS3, LFT3, MG3, HEMDF ####[facility] HospitalApplied [employer] [place], [place] #### OSM ####[facility] [employer] [address] [facility] [place] [address] Glucose [Mass/Vol] 119 mg/dL High 70-100 [facility] Comment on above: Performed By: #### B MP3, PHOS3, LFT3, MG3, HEMDF ####[facility] [employer] [address] [place] [address]#### OSM ####[facility] [employer] [address] [facility] [place] [address] Urea nitrogen [Mass/Vol] 58 mg/dL High 7-20 [facility] Comment on above: Performed By: #### B MP3, PHOS3, LFT3, MG3, HEMDF ####[facility] [facility] [place] [address]#### OSM ####[facility] [place] [address] Anion gap [Moles/Vol] 6 mmol/L Normal 3-13 [facility] Comment on above: Performed By: #### B MP3, PHOS3, LFT3, MG3, HEMDF ####[place] [address] [facility] [place] [address]#### OSM ####[facility] [place] [address] CO2 [Moles/Vol] 24 mmol/L Normal 22-30 [facility] Comment on above: Performed By: #### B MP3, PHOS3, LFT3, MG3, HEMDF ####[address], [place] #### OSM ####[facility] [facility] [place] [address] Creatinine [Mass/Vol] 2.61 mg/dL High 0.52-1.25 [facility] Comment on above: Performed By: #### B MP3, PHOS3, LFT3, MG3, HEMDF ####[place] [address] [facility] [place] #### OSM ####[facility] [place] [address] GFR/1.73 sq M.predicted among blacks MDRD (S/P/Bld) [Vol rate/Area] 23.3 mL/min/{1.73_m2} Abnormal >60 [facility] Comment on above: Performed By: #### B MP3, PHOS3, LFT3, MG3, HEMDF ####[place] [address] [facility] [address]#### OSM ####[facility] [place] [address] GFR/1.73 sq M.predicted among non-blacks MDRD (S/P/Bld) [Vol rate/Area] 20.1 mL/min/{1.73_m2} Abnormal >60 [facility] Comment on above: Result Comment: KDIG O guidelines provide the following GFR categories:Stage GFR(ml/min/1.73 m2) TermsG1 >=90 Normal or highG2 60-89 Mildly decreased*G3a 45-59 Mildly to moderately nyzhcfjetS0z 30-44 Moderately to severely decreasedG4 15-29 Severely [...] #### B MP3, PHOS3, LFT3, MG3, HEMDF ####[address] #### OSM ####[facility] [place] [facility] [place] [address] Potassium [Moles/Vol] 5.2 mmol/L High 3.5-5.1 [facility] Comment on above: Performed By: #### B MP3, PHOS3, LFT3, MG3, HEMDF ####[place] [address] [place], [place] #### OSM ####[facility] [place] [address] Sodium [Moles/Vol] 134 mmol/L Low 135-145 [facility] Comment on above: Performed By: #### B MP3, PHOS3, LFT3, MG3, HEMDF ####[place] [address] [place], [place] #### OSM ####[facility] [facility] [place] [address] Chloride [Moles/Vol] 104 mmol/L Normal 98-107 [facility] Comment on above: Performed By: #### B MP3, PHOS3, LFT3, MG3, HEMDF ####[employer] [address] [place] [address]#### OSM ####[employer] [address] [place] [address] Basic Metabolic PanelOrdered By: Silver Nick on 06-30-2021 Anion gap [Moles/Vol] 6 mmol/L 3 - 13 mmol/L [facility] Work Phone: [phone] Calcium [Mass/Vol] 8.5 mg/dL 8.4 - 10. 4 mg/dL [facility] Work Phone: [phone] Chloride [Moles/Vol] 104 mmol/L 98 - 10 7 mmol/L [facility] Work Phone: CO2 [Moles/Vol] 24 mmol/L 22 - 30 mmol/L [facility] Work Phone: [phone] Creatinine [Mass/Vol] 2.61 mg/dL High 0.52 - 1.25 mg/dL [facility] Work Phone: [phone] EGFR IF NonAfrican Syrian 20.1 mL/min Abnormal >60 [facility] Work Phone: [phone] GFR/1.73 sq M.predicted among blacks MDRD (S/P/Bld) [Vol rate/Area] 23.3 mL/min/{1.73_m2} Abnormal >60 [facility] Work Phone: [phone] Glucose [Mass/Vol] 119 mg/dL High 70 - 100 mg/dL [facility] Work Phone: [phone] Potassium [Moles/Vol] 5.2 mmol/L High 3.5 - 5.1 mmol/L [facility] Work Phone: [phone] Sodium [Moles/Vol] 134 mmol/L Low 135 - 145 mmol/L [facility] Work Phone: [phone] Urea nitrogen (BldV) [Mass/Vol] 58 mg/dL High 7 - 20 mg/dL [facility] Work Phone: [phone] CBC auto differentialOrdered By: Michelle Coelho on 06-30-2021 Absolute Baso # 0.0 10*3/uL 0.0 - 0.2 10*3/uL [facility] Work Phone: [phone] Absolute Eos # 0.3 10*3/uL 0.0 - 0.5 10*3/uL [facility] Work Phone: [phone] Absolute Lymph # 1.0 10*3/uL 1.0 - 4.3 10*3/uL [facility] Work Phone: [phone] Absolute [place] # 0.6 10*3/uL 0.0 - 0.8 10*3/uL [facility] Work Phone: [phone] Absolute Neut # 4.8 10*3/uL 1.8 - 7.0 10*3/uL [facility] Work Phone: 1 22 Basophils/100 WBC (Bld) 0.3 % 0.0 - 2.0 % [facility] Work Phone: Eosinophils/100 WBC (Bld) 5.0 % 1.0 - 6.0 % [facility] Work Phone: 1 22 Granulocytes/100 WBC (Bld) 70.9 % 40.0 - 80.0 % [facility] Work Phone: Hematocrit (Bld) [Volume fraction] 28.8 % Low 35.0 - 47.0 % [facility] Work Phone: 22 Hemoglobin.gastrointes tinal spec 1 Ql (Stl) 9.3 g/dL Low 11.7 - 16.0 g/dL [facility] Work Phone: Interpretation and review of laboratory results Abnormal [facility] Work Phone: 22 Lymphocytes/100 WBC (Bld) 15.0 % Low 20.0 - 40.0 % [facility] Work Phone: 1 MCH (RBC) [Entitic mass] 23.8 pg Low 26.0 - 34.0 pg [facility] Work Phone: 22 MCHC (RBC) [Mass/Vol] 32.1 % 32.0 - 36.0 % [facility] Work Phone: [phone] MCV (RBC) [Entitic vol] 74.1 fL Low 79.0 - 98.0 fL [facility] Work Phone: 22 Monocytes/100 WBC (Bld) 8.8 % 2.0 - 10.0 % [facility] Work Phone: Platelet distribution width (Bld) [Ratio] 24.6 % High 11.5 - 14.5 % [facility] Work Phone: [phone] Platelet mean volume (Bld) [Entitic vol] 7.3 fL Low 7.4 - 10.4 fL [facility] Work Phone: [phone] Platelets (Bld) [#/Vol] 206 10*3/uL 140 - 440 10*3/uL [employer] Work Phone: [phone] RBC (Bld) [#/Vol] 3.89 10*6/uL 3.80 - 5.2 0 10*6/uL [employer] Work Phone: [phone] WBC (Bld) [#/Vol] 6.8 10*3/uL 3.6 - 10.7 10*3/uL [employer] Work Phone: [phone] [employer] Work Phone: [phone] [employer] Work Phone: Glucose,Bedsideon 06-30-2021 Glucose [Mass/Vol] 129 mg/dL High 70-100 [facility] Comment on above: Result Comment: Test performed by glucose meter. Results may be 10%-15% lowerthan serum/plasma values. (CLIA ID [id number]) Performed By: #### B GLU ####[employer] [address] [place] [address] Glucose [Mass/Vol] 132 mg/dL High 70-100 [facility] Comment on above: Result Comment: Test performed by glucose meter. Results may be 10%-15% lowerthan serum/plasma values. (CLIA ID [id number]) Performed By: #### B GLU ####[employer] [address] [place] [address] Glucose [Mass/Vol] 104 mg/dL High 70-100 [facility] Comment on above: Result Comment: Test performed by glucose meter. Results may be 10%-15% lowerthan serum/plasma values. (CLIA ID [id number]) Performed By: #### B GLU ####[id number] [place], [place] Glucose,BedsideOrdered By: Tatyana Soni on 06-30-2021 Glucose [Mass/Vol] 146 mg/dL High 70-100 [facility] Work Phone: Comment on above: Result Comment: Test performed by glucose meter. Results may be 10%-15% lowerthan serum/plasma values. (CLIA ID [id number]) Performed By: #### B GLU ####[facility] HospitalApplied [employer] Technology[address] [place] [address] Hemogram w/ Autodiffon 06-30 Abs Baso Cnt 0.0 10*3/uL Normal 0.0-0.2 [facility] Comment on above: Performed By: #### B MP3, PHOS3, LFT3, MG3, HEMDF ####[id number] [place], [place] #### OSM ####[facility] HospitalFisoc [address] [facility] [place] [address] Abs Neutrophile Cnt 4.8 10*3/uL Normal 1.8-7.0 [facility] [employer] Comment on above: Performed By: #### B MP3, PHOS3, LFT3, MG3, HEMDF ####[id number] [place] [address] #### OSM ####[employer] [address] [facility] [place] [address] Basophils/100 WBC (Bld) 0.3 % Normal 0.0-2.0 [facility] Comment on above: Performed By: #### B MP3, PHOS3, LFT3, MG3, HEMDF ####[id number] [place], [place] #### OSM ####[employer] [address] [facility] [place] [address] Eosinophils (Bld) [#/Vol] 0.3 10*3/uL Normal 0.0-0.5 [facility] Comment on above: Performed By: #### B MP3, PHOS3, LFT3, MG3, HEMDF ####[address] [place], [place] #### OSM ####[facility] [place] [address] Eosinophils/100 WBC (Bld) 5.0 % Normal 1.0-6.0 [facility] Comment on above: Performed By: #### B MP3, PHOS3, LFT3, MG3, HEMDF ####[address] #### OSM ####[facility] [place] [address] Erythrocyte distribution width (RBC) [Ratio] 24.6 % High 11.5-14.5 [facility] Comment on above: Performed By: #### B MP3, PHOS3, LFT3, MG3, HEMDF ####[address] #### OSM ####[facility] [place] [address] Granulocytes/100 WBC (Bld) 70.9 % Normal 40.0-80.0 [facility] Comment on above: Performed By: #### B MP3, PHOS3, LFT3, MG3, HEMDF ####[address] #### OSM ####[facility] [place] [address] Hematocrit (Bld) [Volume fraction] 28.8 % Low 35.0-47.0 [facility] Comment on above: Performed By: #### B MP3, PHOS3, LFT3, MG3, HEMDF ####[address] [place], [place] #### OSM ####[facility] [place] [address] Hemoglobin (Bld) [Mass/Vol] 9.3 g/dL Low 11.7-16.0 [facility] Comment on above: Performed By: #### B MP3, PHOS3, LFT3, MG3, HEMDF ####[address] [place], [place] #### OSM ####[facility] [place] [address] Lymphocytes (Bld) [#/Vol] 1.0 10*3/uL Normal 1.0-4.3 [facility] Comment on above: Performed By: #### B MP3, PHOS3, LFT3, MG3, HEMDF ####[address] #### OSM ####[address] [place] [address] Lymphocytes/100 WBC (Bld) 15.0 % Low 20.0-40.0 [facility] Comment on above: Performed By: #### B MP3, PHOS3, LFT3, MG3, HEMDF ####[address] #### OSM ####[address] [place] [address] MCH (RBC) [Entitic mass] 23.8 pg Low 26.0-34.0 [facility] Comment on above: Performed By: #### B MP3, PHOS3, LFT3, MG3, HEMDF ####[address] #### OSM ####[address] [place] [address] MCHC 32.1 % Normal 32.0-36.0 [facility] Comment on above: Performed By: #### B MP3, PHOS3, LFT3, MG3, HEMDF ####[address] #### OSM ####[address] [place] [address] MCV (RBC) [Entitic vol] 74.1 fL Low 79.0-98.0 [facility] Comment on above: Performed By: #### B MP3, PHOS3, LFT3, MG3, HEMDF ####[address] [place], [place] #### OSM ####[facility] [place] [address] Monocytes (Bld) [#/Vol] 0.6 10*3/uL Normal 0.0-0.8 [facility] Comment on above: Performed By: #### B MP3, PHOS3, LFT3, MG3, HEMDF ####[address] [place], [place] #### OSM ####[facility] [place] [address] Monocytes/100 WBC (Bld) 8.8 % Normal 2.0-10.0 [facility] Comment on above: Performed By: #### B MP3, PHOS3, LFT3, MG3, HEMDF ####[address] #### OSM ####[facility] [place] [address] Platelet mean volume (Bld) [Entitic vol] 7.3 fL Low 7.4-10.4 [facility] Comment on above: Performed By: #### B MP3, PHOS3, LFT3, MG3, HEMDF ####[address] #### OSM ####[facility] [place] [address] Platelets (Bld) [#/Vol] 206 10*3/uL Normal 140-440 [facility] Comment on above: Performed By: #### B MP3, PHOS3, LFT3, MG3, HEMDF ####[address] #### OSM ####[facility] [place] [address] RBC (Bld) [#/Vol] 3.89 10*6/uL Normal 3.80-5.20 [facility] Comment on above: Performed By: #### B MP3, PHOS3, LFT3, MG3, HEMDF ####[address] [facility], [place] #### OSM ####[facility] [place] [address] WBC (Bld) [#/Vol] 6.8 10*3/uL Normal 3.6-10.7 [facility] Comment on above: Performed By: #### B MP3, PHOS3, LFT3, MG3, HEMDF ####[address] [facility], [place] #### OSM ####[place] [address] [place] [place] [address] Hepatic Functionon 1 ALP [Catalytic activity/Vol] 83 U/L Normal 38-126 [facility] Comment on above: Performed By: #### B MP3, PHOS3, LFT3, MG3, HEMDF ####[address], [place] #### OSM ####[address] [place] [facility] [place] [address] ALT [Catalytic activity/Vol] 30 U/L Normal 0-34 [facility] Comment on above: Result Comment: The ALT test is performed by an updated assay method.Please note that the reference intervals have beenchanged and are now sex specific. Performed By: #### B MP3, PHOS3, LFT3, MG3, HEMDF ####[address], [place] #### OSM ####[address] [place] [address] AST [Catalytic activity/Vol] 29 U/L Normal 15-46 [facility] Comment on above: Performed By: #### B MP3, PHOS3, LFT3, MG3, HEMDF ####[address], [place] #### OSM ####[facility] [place] [address] Bilirubin [Mass/Vol] 0.4 mg/dL Normal 0.2-1.3 [facility] Comment on above: Performed By: #### B MP3, PHOS3, LFT3, MG3, HEMDF ####[facility] [employer] [address] . [place], [place] #### OSM ####[facility] [employer] [address] [place] [address] Bilirubin.indirect [Mass/Vol] 0.0 mg/dL Normal 0.0-0.3 [facility] Comment on above: Performed By: #### B MP3, PHOS3, LFT3, MG3, HEMDF ####[facility] [employer] [place], [place] #### OSM ####[facility] [employer] [place] [address] Protein [Mass/Vol] 6.1 g/dL Low 6.3-8.2 [facility] Comment on above: Performed By: #### B MP3, PHOS3, LFT3, MG3, HEMDF ####[facility] [employer] [place], [place] #### OSM ####[facility] [employer] [address] [place] [address] Albumin [Mass/Vol] 2.8 g/dL Low 3.5-5.0 [facility] Comment on above: Performed By: #### B MP3, PHOS3, LFT3, MG3, HEMDF ####[facility] [employer] [address] [place], [place] #### OSM ####[facility] [employer] [address] [place] [address] Hepatic Function PanelOrdere d By: Tello Sterling on 06-30-2021 Albumin [Mass/Vol] 2.8 g/dL Low 3.5 - 5.0 g/dL [facility] Work Phone: ALP (Bld) [Catalytic activity/Vol] 83 U/L 38 - 126 U/L [facility] Work Phone: ALT [Catalytic activity/Vol] 30 U/L 0 - 34 U/L [facility] Work Phone: AST [Catalytic activity/Vol] 29 U/L 15 - 46 U/L [facility] Work Phone: [phone] Bilirubin [Mass/Vol] 0.4 mg/dL 0.2 - 1 .3 mg/dL [facility] Work Phone: [phone] Bilirubin.indirect [Mass/Vol] 0.0 mg/dL 0.0 - 0.3 mg/dL [facility] Work Phone: [phone] Free PSA/Total PSA [Mass fraction] 6.1 g/dL Low 6.3 - 8.2 g/dL [facility] Work Phone: [phone] Magnesiumon 06-30-2021 Magnesium [Mass/Vol] 1.9 mg/dL Normal 1.6-2.3 [facility] [employer] Comment on above: Performed By: #### B MP3, PHOS3, LFT3, MG3, HEMDF ####[facility] Hospital[facility] [address] [place] [address]#### OSM ####[employer] [address] [place] [address] MagnesiumOrdered By: Michelle lauren on 06-30-2021 Magnesium [Mass/Vol] 1.9 mg/dL 1.6 - 2 .3 mg/dL [facility] Work Phone: [phone] Panel InformationOrdered By: Lindsey Joyce on 06-30-2021 Interpretation and review of laboratory results Abnormal [facility] Work Phone: [phone] [facility] Work Phone: [phone] [facility] Work Phone: [phone] Panel InformationOrdered By: Michelle Coelho on 06-30-2021 Interpretation and review of laboratory results Abnormal [facility] Work Phone: [phone] [facility] Work Phone: [phone] [facility] Work Phone: [phone] OsmolalityOrdered By: Lindsey Joyce on 06-30-2021 Serum Osmolality 302 mosm/kg High 280 - 300 mosm/kg [facility] Work Phone: [phone] Osmolality, UrineOrdered By: April Araujo on 06-30-2021 Interpretation and review of laboratory results Abnormal [facility] Work Phone: Osmolality, Ur 213 mosm/kg Low 300 - 1000 mosm/kg [facility] Work Phone: [phone] [facility] Work Phone: [phone] [facility] Work Phone: [phone] Osmolality,Serumon 1 Osmolality,Serum 302 mosm/kg High 280-300 [facility] Comment on above: Performed By: #### B MP3, PHOS3, LFT3, MG3, HEMDF ####[employer] [address] [place] [address]#### OSM ####[facility] [address] [place] [address] Osmolality,Urineon 1 Osmolality,Urine 213 mosm/kg Low 300-1000 [facility] Comment on above: Performed By: #### O SMUR ####[employer] [address] [place] [address]#### NAURR ####[facility] [address] [place] [address] POCT GlucoseOrdered By: Jessica Soni on 06-30-2021 Glucose [Mass/Vol] 129 mg/dL High 70 - 100 mg/dL [facility] Work Phone: [phone] Interpretation and review of laboratory results Abnormal [facility] Work Phone: [phone] [facility] Work Phone: [phone] [facility] Work Phone: [phone] Glucose [Mass/Vol] 132 mg/dL High 70 - 100 mg/dL [facility] Work Phone: [phone] Interpretation and review of laboratory results Abnormal [facility] Work Phone: [phone] [facility] Work Phone: [phone] [facility] Work Phone: [phone] Glucose [Mass/Vol] 104 mg/dL High 70 - 100 mg/dL [facility] Work Phone: [phone] Interpretation and review of laboratory results Abnormal [facility] Work Phone: [phone] [facility] Work Phone: [phone] [facility] Work Phone: Phosphoruson 06-30-2021 Phosphate [Mass/Vol] 6.5 mg/dL High 2.5-4.5 [facility] Comment on above: Performed By: #### B MP3, PHOS3, LFT3, MG3, HEMDF ####[facility] [employer] [address] [place], [place] #### OSM ####[facility] [place] [address] PhosphorusOrdered By: Michelle pearson on 06-30-2021 Phosphate [Mass/Vol] 6.5 mg/dL High 2.5 - 4 .5 mg/dL [facility] Work Phone: Sodium, Ur Randomon 06-30-20 21 Sodium [Moles/Vol] 31 mmol/L Normal 30-90 [facility] Comment on above: Performed By: #### O SMUR ####[facility] [employer] [address] [place] [address]#### NAURR ####[facility] [employer] [address] [place], [place] Basic Metabolic Panelon 07-3 Anion gap [Moles/Vol] 7 mmol/L Normal 3-13 [facility] Comment on above: Performed By: #### B MP3 ####[facility] [employer] [address] [place], [place] Calcium [Mass/Vol] 8.5 mg/dL Normal 8.4-10.4 [facility] Comment on above: Performed By: #### B MP3 ####[facility] [employer] [address] [place], [place] CO2 [Moles/Vol] 25 mmol/L Normal 22-30 [facility] Comment on above: Performed By: #### B MP3 ####[facility] [employer] [address] [place], [place] Creatinine [Mass/Vol] 2.86 mg/dL High 0.52-1.25 [facility] Comment on above: Performed By: #### B MP3 ####[facility] [place], [place] GFR/1.73 sq M.predicted among blacks MDRD (S/P/Bld) [Vol rate/Area] 20.9 mL/min/{1.73_m2} Abnormal >60 [facility] Comment on above: Performed By: #### B MP3 ####[address] [place] [address] GFR/1.73 sq M.predicted among non-blacks MDRD (S/P/Bld) [Vol rate/Area] 18.0 mL/min/{1.73_m2} Abnormal >60 [facility] Comment on above: Result Comment: KDIG O guidelines provide the following GFR categories:Stage GFR(ml/min/1.73 m2) TermsG1 >=90 Normal or highG2 60-89 Mildly decreased*G3a 45-59 Mildly to moderately ghuaepfjcY5p 30-44 Moderately to severely decreasedG4 15-29 Severely [...] creatinine secretion. Performed By: #### B MP3 ####[address] [place] [address] Glucose [Mass/Vol] 115 mg/dL High 70-100 [facility] Comment on above: Performed By: #### B MP3 ####[address] [place] [address] Glucose [Mass/Vol] 114 mg/dL High 70-100 [facility] Comment on above: Performed By: #### B MP3 ####[address] [place] [address] Urea nitrogen [Mass/Vol] 57 mg/dL High 7-20 [facility] Comment on above: Performed By: #### B MP3 ####[address] . [place], [place] Urea nitrogen [Mass/Vol] 58 mg/dL High 7-20 [facility] Comment on above: Performed By: #### B MP3 ####[address] [place], [place] Anion gap [Moles/Vol] 7 mmol/L Normal 3-13 [facility] Comment on above: Performed By: #### B MP3 ####[address] [place], [place] CO2 [Moles/Vol] 25 mmol/L Normal 22-30 [facility] Comment on above: Performed By: #### B MP3 ####[address] [place], [place] Creatinine [Mass/Vol] 2.86 mg/dL High 0.52-1.25 [facility] Comment on above: Performed By: #### B MP3 ####[address] [place], [place] GFR/1.73 sq M.predicted among blacks MDRD (S/P/Bld) [Vol rate/Area] 20.9 mL/min/{1.73_m2} Abnormal >60 [facility] Comment on above: Performed By: #### B MP3 ####[address] [place], [place] GFR/1.73 sq M.predicted among non-blacks MDRD (S/P/Bld) [Vol rate/Area] 18.0 mL/min/{1.73_m2} Abnormal >60 [facility] Comment on above: Result Comment: KDIG O guidelines provide the following GFR categories:Stage GFR(ml/min/1.73 m2) TermsG1 >=90 Normal or highG2 60-89 Mildly decreased*G3a 45-59 Mildly to moderately aiiapheafD3o 30-44 Moderately to severely decreasedG4 15-29 Severely [...] creatinine secretion. Performed By: #### B MP3 ####[facility] [employer] [address] [place], [place] Chloride [Moles/Vol] 100 mmol/L Normal 98-107 [facility] Comment on above: Performed By: #### B MP3 ####[facility] [employer] [address] [place], [place] Potassium [Moles/Vol] 5.0 mmol/L Normal 3.5-5.1 [facility] Comment on above: Performed By: #### B MP3 ####[facility] [employer] [address] [place] Sodium [Moles/Vol] 132 mmol/L Low 135-145 [facility] Comment on above: Performed By: #### B MP3 ####[facility] [employer] [address] [place] Chloride [Moles/Vol] 100 mmol/L Normal 98-107 [facility] Comment on above: Performed By: #### B MP3 ####[address] [place] Potassium [Moles/Vol] 5.0 mmol/L Normal 3.5-5.1 [facility] Comment on above: Performed By: #### B MP3 ####[facility] [employer] [address] [place] Sodium [Moles/Vol] 131 mmol/L Low 135-145 [facility] Comment on above: Performed By: #### B MP3 ####[address] [place], [place] Basic Metabolic PanelOrdered By: Silver Nick on 06-29-2021 Anion gap [Moles/Vol] 7 mmol/L 3 - 13 mmol/L [facility] Work Phone: [phone] Calcium [Mass/Vol] 8.5 mg/dL 8.4 - 10. 4 mg/dL [facility] Work Phone: [phone] Chloride [Moles/Vol] 100 mmol/L 98 - 10 7 mmol/L [facility] Work Phone: [phone] CO2 [Moles/Vol] 25 mmol/L 22 - 30 mmol/L [facility] Work Phone: [phone] Creatinine [Mass/Vol] 2.86 mg/dL High 0.52 - 1.25 mg/dL [facility] Work Phone: [phone] IF NonAfrican Syrian 18.0 mL/min Abnormal >60 [facility] Work Phone: [phone] GFR/1.73 sq M.predicted among blacks MDRD (S/P/Bld) [Vol rate/Area] 20.9 mL/min/{1.73_m2} Abnormal >60 [facility] Work Phone: [phone] Glucose [Mass/Vol] 114 mg/dL High 70 - 100 mg/dL [facility] Work Phone: [phone] Potassium [Moles/Vol] 5.0 mmol/L 3.5 - 5.1 mmol/L [facility] Work Phone: [phone] Sodium [Moles/Vol] 131 mmol/L Low 135 - 145 mmol/L [facility] Work Phone: [phone] Urea nitrogen (BldV) [Mass/Vol] 58 mg/dL High 7 - 20 mg/dL [facility] Work Phone: [phone] Anion gap [Moles/Vol] 7 mmol/L 3 - 13 mmol/L [facility] Work Phone: [phone] Calcium [Mass/Vol] 8.5 mg/dL 8.4 - 10. 4 mg/dL [facility] Work Phone: [phone] Chloride [Moles/Vol] 100 mmol/L 98 - 10 7 mmol/L [facility] Work Phone: [phone] CO2 [Moles/Vol] 25 mmol/L 22 - 30 mmol/L [facility] Work Phone: [phone] Creatinine [Mass/Vol] 2.86 mg/dL High 0.52 - 1.25 mg/dL [facility] Work Phone: [phone] EGFR IF NonAfrican Syrian 18.0 mL/min Abnormal >60 [facility] Work Phone: [phone] GFR/1.73 sq M.predicted among blacks MDRD (S/P/Bld) [Vol rate/Area] 20.9 mL/min/{1.73_m2} Abnormal >60 [facility] Work Phone: [phone] Glucose [Mass/Vol] 115 mg/dL High 70 - 100 mg/dL [facility] Work Phone: [phone] Interpretation and review of laboratory results Abnormal [facility] Work Phone: [phone] Potassium [Moles/Vol] 5.0 mmol/L 3.5 - 5.1 mmol/L [facility] Work Phone: [phone] Sodium [Moles/Vol] 132 mmol/L Low 135 - 145 mmol/L [facility] Work Phone: [phone] Urea nitrogen (BldV) [Mass/Vol] 57 mg/dL High 7 - 20 mg/dL [facility] Work Phone: [phone] [facility] Work Phone: [phone] [facility] Work Phone: [phone] CBC auto differentialOrdered By: Michelle Coelho on 06-29-2021 Hematocrit (Bld) [Volume fraction] 35.1 % 35.0 - 47.0 % [facility] Work [phone] Hemoglobin.gastrointes tinal spec 1 Ql (Stl) 11.1 g/dL Low 11.7 - 16.0 g/dL [facility] Work Phone: [phone] Interpretation and review of laboratory results Abnormal [facility] Work Phone: [phone] MCH (RBC) [Entitic mass] 23.8 pg Low 26.0 - 34.0 pg [facility] Work Phone: [phone] MCHC (RBC) [Mass/Vol] 31.5 % Low 32.0 - 36.0 % [facility] Work Phone: [phone] MCV (RBC) [Entitic vol] 75.5 fL Low 79.0 - 98.0 fL [facility] Work Phone: [phone] Platelet distribution width (Bld) [Ratio] 25.3 % High 11.5 - 14.5 % [facility] Work Phone: [phone] Platelet mean volume (Bld) [Entitic vol] 7.5 fL 7.4 - 10.4 fL [facility] Work Phone: [phone] Platelets (Bld) [#/Vol] 163 10*3/uL 140 - 440 10*3/uL [facility] Work Phone: [phone] RBC (Bld) [#/Vol] 4.65 10*6/uL 3.80 - 5.2 0 10*6/uL [facility] Work Phone: [phone] WBC (Bld) [#/Vol] 4.6 10*3/uL 3.6 - 10.7 10*3/uL [facility] Work Phone: [phone] [employer] Work Phone: [phone] [facility] Work Phone: [phone] Glucose,Bedsideon 06-29-2021 Glucose [Mass/Vol] 141 mg/dL High [address] Comment on above: Result Comment: Test performed by glucose meter. Results may be 10%-15% lowerthan serum/plasma values. (CLIA ID [id number]) Performed By: #### B GLU ####[employer] [address] [place] [address] Glucose [Mass/Vol] 185 mg/dL High [address] Comment on above: Result Comment: Test performed by glucose meter. Results may be 10%-15% lowerthan serum/plasma values. (CLIA ID [id number]) Performed By: #### B GLU ####[employer] [address] [place] [address] Glucose [Mass/Vol] 146 mg/dL High [address] Comment on above: Result Comment: Test performed by glucose meter. Results may be 10%-15% lowerthan serum/plasma values. (CLIA ID [id number]) Performed By: #### B GLU ####[employer] [address] [place], [place] Hemogram w/ Autodiffon 06-29 Erythrocyte distribution width (RBC) [Ratio] 25.3 % High 11.5-14.5 [facility] Comment on above: Performed By: #### P HOS3 HEMROSA BLOOD MDIFF ####[address] [place], [place] Hematocrit (Bld) [Volume fraction] 35.1 % Normal 35.0-47.0 [facility] Comment on above: Performed By: #### P HOS3, HEMDF MGMD VikkiIFF ####[address] [place], [place] Hemoglobin (Bld) [Mass/Vol] 11.1 g/dL Low 11.7-16.0 [facility] Comment on above: Performed By: #### P HOS3, HEMJEREMI MGMD VikkiIFF ####[address] [place], [place] MCH (RBC) [Entitic mass] 23.8 pg Low 26.0-34.0 [facility] Comment on above: Performed By: #### P HOS3 HEMJEREMI MGMD VikkiIFF ####[address] [place] MCHC 31.5 % Low 32.0-36.0 [facility] Comment on above: Performed By: #### P HOS3, HEMJEREMI MGVikki, IFF ####[address] [place], [place] MCV (RBC) [Entitic vol] 75.5 fL Low 79.0-98.0 [facility] Comment on above: Performed By: #### P HOS3, HEMDF MGMD VikkiIFF ####[address] [place], [place] Platelet mean volume (Bld) [Entitic vol] 7.5 fL Normal 7.4-10.4 [facility] Comment on above: Performed By: #### P HOS3, HEMDF MGVikki, MDIFF ####[address] [place], [place] Platelets (Bld) [#/Vol] 163 10*3/uL Normal 140-440 [facility] Comment on above: Performed By: #### P HOS3, HEMDF MGVikki, IFF ####[place] [address] [place], [place] RBC (Bld) [#/Vol] 4.65 10*6/uL Normal 3.80-5.20 [facility] Comment on above: Performed By: #### P HOS3, HEMDF, MG3, IFF ####[address] [place], [place] WBC (Bld) [#/Vol] 4.6 10*3/uL Normal 3.6-10.7 [facility] Comment on above: Performed By: #### P HOSVikki, HEMJEREMI MGVikki, TYLER ####[address] [address] [place], [place] Magnesiumon 06-29-2021 Magnesium [Mass/Vol] 2.0 mg/dL Normal 1.6-2.3 [facility] Comment on above: Performed By: #### P HOSVikki HEMJEREMI MGTYLER Florez ####[address] [place], [place] MagnesiumOrdered By: Michelle lauren on 06-29-2021 Magnesium [Mass/Vol] 2.0 mg/dL 1.6 - 2 .3 mg/dL [facility] Work Phone: Manual Diffon 06-29-2021 Abs Eosin Cnt 0.2 10*3/uL Normal 0.0-0.5 [facility] Comment on above: Performed By: #### P HOS3, HEMJEREMI, MGVikki, IFF ####[id number] [place], [place] Abs Lymph Cnt 0.4 10*3/uL Low 1.1-4.5 [facility] Comment on above: Performed By: #### P HOS3, HEMDF MGVikki, MDIFF ####[id number] [place], [place] Abs Monocyte Cnt 0.3 10*3/uL Normal 0.2-1.1 [facility] Comment on above: Performed By: #### P HOS3, HEMDF MGVikki, IFF ####[id number] [place], [place] Abs Neutrophile Cnt 3.6 10*3/uL Normal 2.2-8.2 [facility] Comment on above: Performed By: #### P HOS3, HEMDF MGVikki, IFF ####[id number] [place], [place] Anisocytosis Slight Normal [facility] Comment on above: Performed By: #### P HOS3, HEMDF MGVikki, IFF ####[id number] [place], [place] Elliptocytes Slight Normal [facility] [facility] Comment on above: Performed By: #### P HOS3, HEMDF MGVikki, IFF ####[address] [place], [place] Eosinophils 4 % Normal 1-6 [facility] Comment on above: Performed By: #### P HOS3, HEMDF MGVikki, IFF ####[address] [place], [place] Lymphocytes 9 % Low 20-40 [facility] Comment on above: Performed By: #### P HOS3, HEMDF MGVikki, IFF ####[address] Metamyelocytes 1 % Abnormal <1 [facility] Comment on above: Performed By: #### P HOS3, HEMDF MGMD VikkiIFF ####[address] [place], [place] Microcytosis Slight Normal [facility] Comment on above: Performed By: #### P HOS3, HEMDF MGVikki, IFF ####[address] Monocytes 7 % Normal 2-10 [facility] Comment on above: Performed By: #### P HOS3, HEMDF, MG3, MDIFF ####[address] Ovalocytes Slight Normal [facility] Comment on above: Performed By: #### P HOS3, HEMDF, MG3, MDIFF ####[address] Poikilocytosis Slight Normal [facility] Comment on above: Performed By: #### P HOS3, HEMDF, MG3, MDIFF ####[address] RBC Morphology ABNORMAL Normal [facility] Comment on above: Performed By: #### P HOS3, HEMDF, MG3, MDIFF ####[address] Seg Neutrophils 79 % Normal 40-80 [facility] Comment on above: Performed By: #### P HOS3, HEMDF, MG3, MDIFF ####[address] Tear Drop Forms Slight Normal [facility] Comment on above: Performed By: #### P HOS3, HEMDF, MG3, MDIFF ####[address] Abs Baso Cnt 0.0 10*3/uL Normal 0.0-0.2 [facility] Comment on above: Performed By: #### P HOS3, HEMDF, MG3, MDIFF ####[address] Bands 0 % Normal 0-3 [facility] Comment on above: Performed By: #### P HOS3, HEMDF, MG3, MDIFF ####[address] Basophils 0 % Normal 0-2 [facility] Comment on above: Performed By: #### P HOS3, HEMDF MGVikki IFF ####[address] [place] [address] Cells counted 100 Normal [facility] Comment on above: Performed By: #### P HAM3, FERMÍN, ROSA, IFF ####[id number] [place] [address] Manual DifferentialOrdered B y: Michelle Coelho on 06-29-2021 Absolute Baso # 0.0 10*3/uL 0.0 - 0.2 10*3/uL [facility] Work Phone: [phone] Absolute Eos # 0.2 10*3/uL 0.0 - 0.5 10*3/uL [facility] Work Phone: [phone] Absolute Lymph # 0.4 10*3/uL Low 1.1 - 4.5 10*3/uL [facility] Work Phone: [phone] Absolute [place] # 0.3 10*3/uL 0.2 - 1.1 10*3/uL [facility] Work Phone: [phone] Absolute Neut # 3.6 10*3/uL 2.2 - 8.2 10*3/uL [facility] Work Phone: [phone] Anisocytosis Slight [facility] Work Phone: [phone] Bands 0 % 0 - 3 % [facility] Work Phone: [phone] Basophils/100 WBC (Bld) 0 % 0 - 2 % [facility] Work Phone: ) [phone] Elliptocytes Slight [facility] Work Phone: [phone] Eosinophils/100 WBC (Bld) 4 % 1 - 6 % [facility] Work Phone: ) [phone] Interpretation and review of laboratory results Abnormal [facility] Work Phone: [phone] Lymphocytes/100 WBC (Bld) 9 % Low 20 - 40 % [facility] Work Phone: ) [phone] Metamyelocytes 1 % Abnormal <1 [facility] Work Phone: [phone] Microcytosis Slight [facility] Work Phone: [phone] Monocytes/100 WBC (Bld) 7 % 2 - 10 % [facility] Work Phone: [phone] Ovalocytes Slight [facility] Work Phone: [phone] Poikilocytes Slight [facility] Work Phone: [phone] RBC (Bld) [#/Vol] ABNORMAL [facility] Work Phone: [phone] Seg Neutrophils 79 % 40 - 80 % [facility] Work Phone: [phone] Tear Drop Cells Slight [facility] Work Phone: [phone] TOTAL CELLS COUNTED 100 [facility] Work Phone: [phone] [facility] Work Phone: [phone] [facility] Work Phone: [phone] Panel InformationOrdered By: Michelle Coelho on 06-29-2021 Interpretation and review of laboratory results Abnormal [facility] Work Phone: [phone] [facility] Work Phone: [phone] [facility] Work Phone: [phone] POCT GlucoseOrdered By: Jessica Soni on 06-29-2021 Glucose [Mass/Vol] 141 mg/dL High 70 - 100 mg/dL [facility] Work Phone: [phone] Interpretation and review of laboratory results Abnormal [facility] Work Phone: [phone] [facility] Work Phone: [phone] [facility] Work Phone: [phone] Glucose [Mass/Vol] 146 mg/dL High 70 - 100 mg/dL [facility] Work Phone: [phone] Interpretation and review of laboratory results Abnormal [facility] Work Phone: [phone] [facility] Work Phone: [phone] [facility] Work Phone: [phone] POCT GlucoseOrdered By: Gennaro Parsons on 06-29-2021 Glucose [Mass/Vol] 185 mg/dL High 70 - 100 mg/dL [facility] Work Phone: [phone] Interpretation and review of laboratory results Abnormal [facility] Work Phone: [phone] [facility] Work Phone: [phone] [facility] Work Phone: Phosphoruson 06-29-2021 Phosphate [Mass/Vol] 6.3 mg/dL High 2.5-4.5 [facility] Comment on above: Performed By: #### P HOS3, HEMDF, MG3, MDIFF ####[address] [facility], [place] PhosphorusOrdered By: Michelle pearson on 06-29-2021 Phosphate [Mass/Vol] 6.3 mg/dL High 2.5 - 4 .5 mg/dL [facility] Work Phone: SODIUM, URINE, RANDOMOrdered By: April Araujo on 06-29-2021 Sodium (U) [Moles/Vol] 31 mmol/L 30 - 90 mmol/L [facility] Work Phone: [phone] [facility] Work Phone: [phone] [facility] Work Phone: Basic Metabolic Panelon 06-01 Calcium [Mass/Vol] 8.5 mg/dL Normal 8.4-10.4 [facility] Comment on above: Performed By: #### B MP3 ####[address] [place], [place] Glucose [Mass/Vol] 118 mg/dL High 70-100 [facility] Comment on above: Performed By: #### B MP3 ####[address] [place], [place] Anion gap [Moles/Vol] 9 mmol/L Normal 3-13 [facility] Comment on above: Performed By: #### B MP3 ####[address] [place], [place] CO2 [Moles/Vol] 23 mmol/L Normal 22-30 [facility] Comment on above: Performed By: #### B MP3 ####[facility] [facility], [place] Creatinine [Mass/Vol] 3.14 mg/dL High 0.52-1.25 [facility] Comment on above: Performed By: #### B MP3 ####[address] [place], [place] GFR/1.73 sq M.predicted among blacks MDRD (S/P/Bld) [Vol rate/Area] 18.6 mL/min/{1.73_m2} Abnormal >60 [facility] Comment on above: Performed By: #### B MP3 ####[address] [place] [address] GFR/1.73 sq M.predicted among non-blacks MDRD (S/P/Bld) [Vol rate/Area] 16.1 mL/min/{1.73_m2} Abnormal >60 [facility] Comment on above: Result Comment: KDIG O guidelines provide the following GFR categories:Stage GFR(ml/min/1.73 m2) TermsG1 >=90 Normal or highG2 60-89 Mildly decreased*G3a 45-59 Mildly to moderately [id number] 30-44 Moderately to severely decreasedG4 15-29 Severely [...] creatinine secretion. Performed By: #### B MP3 ####[address] [place] [address] Urea nitrogen [Mass/Vol] 56 mg/dL High 7-20 [facility] Comment on above: Performed By: #### B MP3 ####[address] [place] [address] Chloride [Moles/Vol] 98 mmol/L Normal 98-107 [facility] Comment on above: Performed By: #### B MP3 ####[address] [place] [address] Potassium [Moles/Vol] 4.5 mmol/L Normal 3.5-5.1 [facility] Comment on above: Performed By: #### B MP3 ####[facility] [employer] [id number] [place] [address] Sodium [Moles/Vol] 130 mmol/L Low 135-145 [facility] [employer] [facility] Comment on above: Performed By: #### B MP3 ####[facility] [employer] [id number] [place] [address] Basic Metabolic PanelOrdered By: Silver Nick on 06-28-2021 Anion gap [Moles/Vol] 9 mmol/L 3 - 13 mmol/L [facility] Work Phone: Calcium [Mass/Vol] 8.5 mg/dL 8.4 - 10. 4 mg/dL [facility] Work Phone: [phone] Chloride [Moles/Vol] 98 mmol/L 98 - 10 7 mmol/L [facility] Work Phone: [phone] CO2 [Moles/Vol] 23 mmol/L 22 - 30 mmol/L [facility] Work Phone: Creatinine [Mass/Vol] 3.14 mg/dL High 0.52 - 1.25 mg/dL [facility] Work Phone: EGFR IF NonAfrican Syrian 16.1 mL/min Abnormal >60 [facility] Work Phone: GFR/1.73 sq M.predicted among blacks MDRD (S/P/Bld) [Vol rate/Area] 18.6 mL/min/{1.73_m2} Abnormal >60 [facility] Work Phone: Glucose [Mass/Vol] 118 mg/dL High 70 - 100 mg/dL [facility] Work Phone: [phone] Interpretation and review of laboratory results Abnormal [facility] Work Phone: Potassium [Moles/Vol] 4.5 mmol/L 3.5 - 5.1 mmol/L [facility] Work Phone: Sodium [Moles/Vol] 130 mmol/L Low 135 - 145 mmol/L [facility] Work Phone: Urea nitrogen (BldV) [Mass/Vol] 56 mg/dL High 7 - 20 mg/dL [facility] Work Phone: [facility] Work Phone: [facility] Work Phone: CBC auto differentialOrdered By: Michelle Coelho on 06-28-2021 Hematocrit (Bld) [Volume fraction] 28.6 % Low 35.0 - 47.0 % [facility] Work Phone: [phone] Hemoglobin.gastrointes tinal spec 1 Ql (Stl) 9.2 g/dL Low 11.7 - 16.0 g/dL [facility] Work Phone: Interpretation and review of laboratory results Abnormal [facility] Work Phone: MCH (RBC) [Entitic mass] 23.8 pg Low 26.0 - 34.0 pg [facility] Work Phone: MCHC (RBC) [Mass/Vol] 32.1 % 32.0 - 36.0 % [facility] Work Phone: MCV (RBC) [Entitic vol] 74.2 fL Low 79.0 - 98.0 fL [facility] Work Phone: Platelet distribution width (Bld) [Ratio] 24.7 % High 11.5 - 14.5 % [facility] Work Phone: Platelet mean volume (Bld) [Entitic vol] 8.0 fL 7.4 - 10.4 fL [facility] Work Phone: Platelets (Bld) [#/Vol] 184 10*3/uL 140 - 440 10*3/uL [facility] Work Phone: RBC (Bld) [#/Vol] 3.86 10*6/uL 3.80 - 5.2 0 10*6/uL [facility] Work Phone: WBC (Bld) [#/Vol] 5.7 10*3/uL 3.6 - 10.7 10*3/uL [facility] Work Phone: [facility] Work Phone: [facility] Work Phone: CORTISOL TOTALOrdered By: Fr foreign Nick on 06-28-2021 Cortisol 10.0 ug/dL [facility] Work Phone: [facility] Work Phone: [facility] Work Phone: Cortisolon 06-28-2021 Cortisol 10.0 ug/dL Normal [facility] Comment on above: Result Comment: Befo re 10am 4.5-22.7 ug/dLAfter 5pm 1.7-14.1 ug/dL Performed By: #### C ORTL ####[id number] [place] [address] Glucose,Bedsideon 06-28-2021 Glucose [Mass/Vol] 171 mg/dL High 70-100 [facility] Comment on above: Result Comment: Test performed by glucose meter. Results may be 10%-15% lowerthan serum/plasma values. (CLIA ID [id number]) Performed By: #### B GLU ####[id number] [place] [address] Glucose [Mass/Vol] 165 mg/dL High 70100 [facility] Comment on above: Result Comment: Test performed by glucose meter. Results may be 10%-15% lowerthan serum/plasma values. (CLIA ID [id number]) Performed By: #### B GLU ####[id number] [place] [address] Glucose [Mass/Vol] 161 mg/dL High 70100 [facility] Comment on above: Result Comment: Test performed by glucose meter. Results may be 10%-15% lowerthan serum/plasma values. (CLIA ID [id number]) Performed By: #### B GLU ####[id number] [place] [address] Glucose [Mass/Vol] 129 mg/dL High 70100 [facility] Comment on above: Result Comment: Test performed by glucose meter. Results may be 10%-15% lowerthan serum/plasma values. (CLIA ID [id number]) Performed By: #### B GLU ####[id number] [place] [address] Hemogram w/ Autodiffon 06-28 Erythrocyte distribution width (RBC) [Ratio] 24.7 % High 11.5-14.5 [facility] Comment on above: Performed By: #### V GUSTAVO, TYLER, HEMDF, PHOS3, LFT3, MG3 ####[address] [place], [place] Hematocrit (Bld) [Volume fraction] 28.6 % Low 35.0-47.0 [facility] Comment on above: Performed By: #### V GUSTAVO, MDIFF, HEMDF, PHOS3, LFT3, MG3 ####[address] [place], [place] Hemoglobin (Bld) [Mass/Vol] 9.2 g/dL Low 11.7-16.0 [facility] Comment on above: Performed By: #### [place] CHEN, MDIFF, HEMDF, PHOS3, LFT3, MG3 ####[address] MCH (RBC) [Entitic mass] 23.8 pg Low 26.0-34.0 [facility] Comment on above: Performed By: #### [place] CHEN, TYLER, HEMDF, PHOS3, LFT3, MG3 ####[address] [place] MCHC 32.1 % Normal 32.0-36.0 [facility] Comment on above: Performed By: #### V GUSTAVO, TYLER, HEMDF, PHOS3, LFT3, MG3 ####[address] [place] MCV (RBC) [Entitic vol] 74.2 fL Low 79.0-98.0 [facility] Comment on above: Performed By: #### V GUSTAVO, MDIFF, HEMDF, PHOS3, LFT3, MG3 ####[address] [place], [place] Platelet mean volume (Bld) [Entitic vol] 8.0 fL Normal 7.4-10.4 [facility] Comment on above: Performed By: #### V ANL, MDIFF, HEMDF, PHOS3, LFT3, MG3 ####[address] [place], [place] Platelets (Bld) [#/Vol] 184 10*3/uL Normal 140-440 [facility] Comment on above: Performed By: #### V ANL, MDIFF, HEMDF, PHOS3, LFT3, MG3 ####[address] [place], [place] RBC (Bld) [#/Vol] 3.86 10*6/uL Normal 3.80-5.20 [facility] Comment on above: Performed By: #### V ANL, MDIFF, HEMDF, PHOS3, LFT3, MG3 ####[address] [place], [place] WBC (Bld) [#/Vol] 5.7 10*3/uL Normal 3.6-10.7 [facility] Comment on above: Performed By: #### V ANL, MDIFF, HEMDF, PHOS3, LFT3, MG3 ####[address] [place], [place] Hepatic Functionon 1 ALP [Catalytic activity/Vol] 91 U/L Normal 38-126 [facility] Comment on above: Performed By: #### V ANL, MDIFF, HEMDF, PHOS3, LFT3, MG3 ####[address] [place], [place] ALT [Catalytic activity/Vol] 35 U/L High 0-34 [facility] Comment on above: Result Comment: The ALT test is performed by an updated assay method.Please note that the reference intervals have beenchanged and are now sex specific. Performed By: #### V ANL, MDIFF, HEMDF, PHOS3, LFT3, MG3 ####[address] [place], [place] AST [Catalytic activity/Vol] 32 U/L Normal 15-46 [facility] Comment on above: Performed By: #### V ANL, MDIFF, HEMDF, PHOS3, LFT3, MG3 ####[facility] [employer] [id number] [place], [place] Bilirubin [Mass/Vol] 0.4 mg/dL Normal 0.2-1.3 [facility] Comment on above: Performed By: #### V ANL, MDIFF, HEMDF, PHOS3, LFT3, MG3 ####[facility] [employer] [id number] [place], [place] Bilirubin.indirect [Mass/Vol] 0.0 mg/dL Normal 0.0-0.3 [facility] Comment on above: Performed By: #### V ANL, MDIFF, HEMDF, PHOS3, LFT3, MG3 ####[facility] [employer] [address] [place], [place] Protein [Mass/Vol] 6.0 g/dL Low 6.3-8.2 [facility] Comment on above: Performed By: #### V ANL, MDIFF, HEMDF, PHOS3, LFT3, MG3 ####[facility] [employer] [id number] [place], [place] Albumin [Mass/Vol] 2.7 g/dL Low 3.5-5.0 [facility] Comment on above: Performed By: #### V ANL, MDIFF, HEMDF, PHOS3, LFT3, MG3 ####[facility] [employer] [id number] [place], [place] Hepatic Function PanelOrdere d By: Tello Sterling on 06-28-2021 Albumin [Mass/Vol] 2.7 g/dL Low 3.5 - 5.0 g/dL [facility] Work Phone: [phone] ALP (Bld) [Catalytic activity/Vol] 91 U/L 38 - 126 U/L [facility] Work Phone: ALT [Catalytic activity/Vol] 35 U/L High 0 - 34 U/L [facility] Work Phone: [phone] AST [Catalytic activity/Vol] 32 U/L 15 - 46 U/L [facility] Work Phone: [phone] Bilirubin [Mass/Vol] 0.4 mg/dL 0.2 - 1 .3 mg/dL [facility] Work Phone: Bilirubin.indirect [Mass/Vol] 0.0 mg/dL 0.0 - 0.3 mg/dL [facility] Work Phone: Free PSA/Total PSA [Mass fraction] 6.0 g/dL Low 6.3 - 8.2 g/dL [facility] Work Phone: Magnesiumon 06-28-2021 Magnesium [Mass/Vol] 2.0 mg/dL Normal 1.6-2.3 [facility] Comment on above: Performed By: #### [place] CHEN, TYLER, HEMDF, PHOS3, LFT3, MG3 ####[facility] [employer] [id number] [place], [place] MagnesiumOrdered By: Michelle lauren on 06-28-2021 Magnesium [Mass/Vol] 2.0 mg/dL 1.6 - 2 .3 mg/dL [facility] Work Phone: Manual Diffon 06-28-2021 Abs Eosin Cnt 0.2 10*3/uL Normal 0.0-0.5 [facility] Comment on above: Performed By: #### TYLER MONZON, HEMDF, PHOS3, LFT3, MG3 ####[facility] [employer] [place], [place] Abs Lymph Cnt 0.4 10*3/uL Low 1.1-4.5 [facility] Comment on above: Performed By: #### TYLER MONZON, HEMDF, PHOS3, LFT3, MG3 ####[facility] [employer] [place], [place] Abs Monocyte Cnt 0.2 10*3/uL Normal 0.2-1.1 [facility] Comment on above: Performed By: #### TYLER MONZON, HEMDF, PHOS3, LFT3, MG3 ####[facility] [employer] [id number] [place], [place] Abs Neutrophile Cnt 4.6 10*3/uL Normal 2.2-8.2 [facility] Comment on above: Performed By: #### V ANL, MDIFF, HEMDF, PHOS3, LFT3, MG3 ####[address] [place], [place] Anisocytosis Slight Normal [facility] Comment on above: Performed By: #### V ANL, MDIFF, HEMDF, PHOS3, LFT3, MG3 ####[address] [place], [place] Bands 8 % High 0-3 [facility] Comment on above: Performed By: #### V ANL, MDIFF, HEMDF, PHOS3, LFT3, MG3 ####[address] [place], [place] Ridgeway Cells Slight Normal [facility] Comment on above: Performed By: #### V ANL, MDIFF, HEMDF, PHOS3, LFT3, MG3 ####[address] [place], [place] Elliptocytes Slight Normal [facility] Comment on above: Performed By: #### V ANL, MDIFF, HEMDF, PHOS3, LFT3, MG3 ####[address] [place], [place] Eosinophils 4 % Normal 1-6 [facility] Comment on above: Performed By: #### V ANL, MDIFF, HEMDF, PHOS3, LFT3, MG3 ####[address] [place], [place] Lymphocytes 7 % Low 20-40 [facility] Comment on above: Performed By: #### V ANL, MDIFF, HEMDF, PHOS3, LFT3, MG3 ####[address] [place], [place] Metamyelocytes 3 % Abnormal <1 [facility] Comment on above: Performed By: #### V ANL, MDIFF, HEMDF, PHOS3, LFT3, MG3 ####[address] [place], [place] Microcytosis Slight Normal [facility] Comment on above: Performed By: #### V ANL, MDIFF, HEMDF, PHOS3, LFT3, MG3 ####[address] [place], [place] Monocytes 4 % Normal 2-10 [facility] Comment on above: Performed By: #### V ANL, MDIFF, HEMDF, PHOS3, LFT3, MG3 ####[address] [place], [place] Myelocytes 1 % Abnormal <1 [facility] Comment on above: Performed By: #### V ANL, MDIFF, HEMDF, PHOS3, LFT3, MG3 ####[address] Ovalocytes Slight Normal [facility] Comment on above: Performed By: #### V ANL, MDIFF, HEMDF, PHOS3, LFT3, MG3 ####[address] Poikilocytosis Slight Normal [facility] Comment on above: Performed By: #### V ANL, MDIFF, HEMDF, PHOS3, LFT3, MG3 ####[address] RBC Morphology ABNORMAL Normal [facility] Comment on above: Performed By: #### V ANL, MDIFF, HEMDF, PHOS3, LFT3, MG3 ####[address] Seg Neutrophils 73 % Normal 40-80 [facility] Comment on above: Performed By: #### V ANL, MDIFF, HEMDF, PHOS3, LFT3, MG3 ####[address] Abs Baso Cnt 0.0 10*3/uL Normal 0.0-0.2 [facility] Comment on above: Performed By: #### V ANL, MDIFF, HEMDF, PHOS3, LFT3, MG3 ####[address] [place] [address] Basophils 0 % Normal 0-2 [facility] Comment on above: Performed By: #### V TYLER CHEN, HEMDF, PHOS3, LFT3, MG3 ####[employer] [id number] [place] [address] Cells counted 100 Normal [facility] Comment on above: Performed By: #### V TYLER CHEN, HEMDF, PHOS3, LFT3, MG3 ####[employer] [address] [place] [address] Manual DifferentialOrdered B y: Michelle Coelho on 06-28-2021 Absolute Baso # 0.0 10*3/uL 0.0 - 0.2 10*3/uL [facility] Work Phone: 22 Absolute Eos # 0.2 10*3/uL 0.0 - 0.5 10*3/uL [facility] Work Phone: 22 Absolute Lymph # 0.4 10*3/uL Low 1.1 - 4.5 10*3/uL [facility] Work Phone: [phone] Absolute [place] # 0.2 10*3/uL 0.2 - 1.1 10*3/uL [facility] Work Phone: 22 Absolute Neut # 4.6 10*3/uL 2.2 - 8.2 10*3/uL [facility] Work Phone: 22 Anisocytosis Slight [facility] Work Phone: 22 Bands 8 % High 0 - 3 % [facility] Work Phone: 22 Basophils/100 WBC (Bld) 0 % 0 - 2 % [facility] Work Phone: 22 [place]way Cells Slight [facility] Work Phone: 22 Elliptocytes Slight [facility] Work Phone: 22 Eosinophils/100 WBC (Bld) 4 % 1 - 6 % [facility] Work Phone: [phone] Interpretation and review of laboratory results Abnormal [facility] Work Phone: [phone] Lymphocytes/100 WBC (Bld) 7 % Low 20 - 40 % [facility] Work Phone: [phone] Metamyelocytes 3 % Abnormal <1 [facility] Work Phone: [phone] Microcytosis Slight [facility] Work Phone: [phone] Monocytes/100 WBC (Bld) 4 % 2 - 10 % [facility] Work Phone: [phone] Myelocytes 1 % Abnormal <1 [facility] Work Phone: [phone] Ovalocytes Slight [facility] Work Phone: [phone] Poikilocytes Slight [facility] Work Phone: [phone] RBC (Bld) [#/Vol] ABNORMAL [facility] Work Phone: [phone] Seg Neutrophils 73 % 40 - 80 % [facility] Work Phone: [phone] TOTAL CELLS COUNTED 100 [facility] Work Phone: [phone] [facility] Work Phone: [phone] [facility] Work Phone: [phone] Panel InformationOrdered By: Michelle Coelho on 06-28-2021 Interpretation and review of laboratory results Abnormal [facility] Work Phone: [phone] [facility] Work Phone: [phone] [facility] Work Phone: [phone] OsmolalityOrdered By: April Araujo on 06-28-2021 Serum Osmolality 293 mosm/kg 280 - 300 mosm/kg [facility] Work Phone: [phone] [facility] Work Phone: [phone] [facility] Work Phone: Osmolality,Serumon 1 Osmolality,Serum 293 mosm/kg Normal 280-300 [facility] Comment on above: Performed By: #### O SM ####[facility] [id number] [place] [address] POCT GlucoseOrdered By: Jessica Soni on 06-28-2021 Glucose [Mass/Vol] 171 mg/dL High 70 - 100 mg/dL [facility] Work Phone: Interpretation and review of laboratory results Abnormal [facility] Work Phone: [phone] [facility] Work Phone: [phone] [facility] Work Phone: Glucose [Mass/Vol] 161 mg/dL High 70 - 100 mg/dL [facility] Work Phone: [phone] Interpretation and review of laboratory results Abnormal [facility] Work Phone: [phone] [facility] Work Phone: [phone] [facility] Work Phone: [phone] Glucose [Mass/Vol] 129 mg/dL High 70 - 100 mg/dL [facility] Work Phone: [phone] Interpretation and review of laboratory results Abnormal [facility] Work Phone: [phone] [facility] Work Phone: [phone] [facility] Work Phone: [phone] POCT GlucoseOrdered By: Gennaro Parsons on 06-28-2021 Glucose [Mass/Vol] 165 mg/dL High 70 - 100 mg/dL [facility] Work Phone: [phone] Interpretation and review of laboratory results Abnormal [facility] Work Phone: [phone] [facility] Work Phone: [phone] [facility] Work Phone: [phone] Phosphoruson 06-28-2021 Phosphate [Mass/Vol] 5.7 mg/dL High 2.5-4.5 [facility] [employer] [facility] Comment on above: Performed By: #### V TYLER CHEN, HEMDF, PHOS3, LFT3, MG3 ####[facility] [employer] [place] [address] PhosphorusOrdered By: Michelle pearson on 06-28-2021 Phosphate [Mass/Vol] 5.7 mg/dL High 2.5 - 4 .5 mg/dL [facility] Work Phone: Vancomycinon 06-28-2021 Vancomycin 42.5 ug/mL High 15.0-20.0 [facility] Comment on above: Result Comment: . Performed By: #### TYLER MONZON, HEMDF, PHOS3, LFT3, MG3 ####[facility] [employer] [place] [address] Vancomycin, RandomOrdered By : Tawanna Sifuentes on 06-28-2021 Interpretation and review of laboratory results Abnormal [facility] Work Phone: [phone] Vancomycin 42.5 ug/mL High 15.0 - 20.0 ug/mL [facility] Work Phone: [phone] [facility] Work Phone: [phone] [facility] Work Phone: [phone] Add On Lab TestOrdered By: Jarod Sifuentes on 06-27-2021 Add On Accepted [facility] Work Phone: [phone] [facility] Work Phone: [phone] [facility] Work Phone: [phone] Add On Lab TestOrdered By: April Sterling on 06-27-2021 Add On Rejected [facility] Work Phone: [phone] Add on test from HISon 06-27 Add on test from HIS Accepted Normal [facility] Comment on above: Result Comment: Spec imen available & acceptable for analysis. Performed By: #### A DDON ####[id number] [place], [place] Add on test from HIS Rejected Normal [facility] Comment on above: Result Comment: No s pecimen available for addon. Performed By: #### A DDON ####[address] [place], [place] Basic Metabolic Panelon - Anion gap [Moles/Vol] 7 mmol/L Normal 3-13 [facility] Comment on above: Performed By: #### JULIO MONZON3 ####[address] [place], [place] Calcium [Mass/Vol] 8.5 mg/dL Normal 8.4-10.4 [facility] Comment on above: Performed By: #### JULIO MONZON3 ####[facility] [employer] [id number] [place], [place] CO2 [Moles/Vol] 25 mmol/L Normal 22-30 [facility] Comment on above: Performed By: #### [place] CHEN BMP3 ####[address] [place], [place] Glucose [Mass/Vol] 131 mg/dL High 70-100 [facility] Comment on above: Performed By: #### V DWIGHTL, BMP3 ####[facility] [employer] [address] [place] [address] Urea nitrogen [Mass/Vol] 52 mg/dL High 7-20 [facility] Comment on above: Performed By: #### V DWIGHTL, BMP3 ####[facility] [employer] [address] [place] [address] Creatinine [Mass/Vol] 3.08 mg/dL High 0.52-1.25 [facility] Comment on above: Performed By: #### V DWIGHTL, BMP3 ####[facility] [employer] [address] [place] [address] GFR/1.73 sq M.predicted among blacks MDRD (S/P/Bld) [Vol rate/Area] 19.1 mL/min/{1.73_m2} Abnormal >60 [facility] Comment on above: Performed By: #### V GUSTAVO, BMP3 ####[facility] [employer] [address] [place] [address] GFR/1.73 sq M.predicted among non-blacks MDRD (S/P/Bld) [Vol rate/Area] 16.5 mL/min/{1.73_m2} Abnormal >60 [facility] Comment on above: Result Comment: KDIG O guidelines provide the following GFR categories:Stage GFR(ml/min/1.73 m2) TermsG1 >=90 Normal or highG2 60-89 Mildly decreased*G3a 45-59 Mildly to moderately sbxjwadwtJ3g 30-44 Moderately to severely decreasedG4 15-29 Severely [...] secretion. Performed By: #### [place] CHEN BMP3 ####[facility] [address] Potassium [Moles/Vol] 4.4 mmol/L Normal 3.5-5.1 [facility] Comment on above: Performed By: #### V GUSTAVO, BMP3 ####[facility] Chloride [Moles/Vol] 94 mmol/L Low 98-107 [facility] Comment on above: Performed By: #### [place] CHEN BMP3 ####[address] Sodium [Moles/Vol] 126 mmol/L Low 135-145 [facility] Comment on above: Performed By: #### [place] CHEN BMP3 ####[address] Calcium [Mass/Vol] 8.3 mg/dL Low 8.4-10.4 [facility] Comment on above: Performed By: #### B MP3 ####[facility] [employer] [id number] Glucose [Mass/Vol] 122 mg/dL High 70-100 [facility] Comment on above: Performed By: #### B MP3 ####[address] Urea nitrogen [Mass/Vol] 50 mg/dL High 7-20 [facility] Comment on above: Performed By: #### B MP3 ####[facility] [address] Anion gap [Moles/Vol] 9 mmol/L Normal 3-13 [facility] Comment on above: Performed By: #### B MP3 ####[facility] [employer] [address] CO2 [Moles/Vol] 21 mmol/L Low 22-30 [facility] Comment on above: Performed By: #### B MP3 ####[address] [place], [place] Creatinine [Mass/Vol] 3.03 mg/dL High 0.52-1.25 [facility] Comment on above: Performed By: #### B MP3 ####[address] [place], [place] GFR/1.73 sq M.predicted among blacks MDRD (S/P/Bld) [Vol rate/Area] 19.4 mL/min/{1.73_m2} Abnormal >60 [facility] Comment on above: Performed By: #### B MP3 ####[address] [place], [place] GFR/1.73 sq M.predicted among non-blacks MDRD (S/P/Bld) [Vol rate/Area] 16.8 mL/min/{1.73_m2} Abnormal >60 [facility] Comment on above: Result Comment: KDIG O guidelines provide the following GFR categories:Stage GFR(ml/min/1.73 m2) TermsG1 >=90 Normal or highG2 60-89 Mildly decreased*G3a 45-59 Mildly to moderately buenuulrpQ1o 30-44 Moderately to severely decreasedG4 15-29 Severely [...] creatinine secretion. Performed By: #### B MP3 ####[address] [place], [place] Calcium [Mass/Vol] 8.2 mg/dL Low 8.4-10.4 [facility] Comment on above: Performed By: #### C ORTL, BMP3 ####[address] [place], [place] Anion gap [Moles/Vol] 7 mmol/L Normal 3-13 [facility] Comment on above: Performed By: #### C HUNG BMP3 ####[employer] [address] [place], [place] CO2 [Moles/Vol] 23 mmol/L Normal 22-30 [facility] Comment on above: Performed By: #### C HUNG, BMP3 ####[facility] [employer] [address] [place], [place] Creatinine [Mass/Vol] 3.20 mg/dL High 0.52-1.25 [facility] Comment on above: Performed By: #### C HUNG BMP3 ####[facility] [employer] [address] [place], [place] GFR/1.73 sq M.predicted among blacks MDRD (S/P/Bld) [Vol rate/Area] 18.2 mL/min/{1.73_m2} Abnormal >60 [facility] Comment on above: Performed By: #### Jennifer PERSAUD, BMP3 ####[facility] [employer] [address] [place], [place] GFR/1.73 sq M.predicted among non-blacks MDRD (S/P/Bld) [Vol rate/Area] 15.7 mL/min/{1.73_m2} Abnormal >60 [facility] Comment on above: Result Comment: KDIG O guidelines provide the following GFR categories:Stage GFR(ml/min/1.73 m2) TermsG1 >=90 Normal or highG2 60-89 Mildly decreased*G3a 45-59 Mildly to moderately iazxjyjepT6j 30-44 Moderately to severely decreasedG4 15-29 Severely [...] tubular creatinine secretion. Performed By: #### C ORJULY BMP3 ####[facility] [place] [address] Glucose [Mass/Vol] 124 mg/dL High 70-100 [facility] Comment on above: Performed By: #### C ORJULY, BMP3 ####[facility] [place] [address] Urea nitrogen [Mass/Vol] 49 mg/dL High 7-20 [facility] Comment on above: Performed By: #### C ORJULY BMP3 ####[address] [place] [address] Chloride [Moles/Vol] 96 mmol/L Low 98-107 [facility] Comment on above: Performed By: #### B MP3 ####[address] [place] [place] [address] Potassium [Moles/Vol] 4.6 mmol/L Normal 3.5-5.1 [facility] Comment on above: Performed By: #### B MP3 ####[address] [facility] [address] Sodium [Moles/Vol] 126 mmol/L Low 135-145 [facility] Comment on above: Performed By: #### B MP3 ####[address] [place] [address] Chloride [Moles/Vol] 96 mmol/L Low 98-107 [facility] Comment on above: Performed By: #### C ORJULY BMP3 ####[address] [facility] [address] Potassium [Moles/Vol] 4.5 mmol/L Normal 3.5-5.1 [facility] Comment on above: Performed By: #### C ORJULY, BMP3 ####[address] [facility] [address] Sodium [Moles/Vol] 126 mmol/L Low 135-145 [facility] Comment on above: Performed By: #### C ORJULY BMP3 ####[facility] [place] [address] Basic Metabolic PanelOrdered By: Silver Nick on 06-27-2021 Anion gap [Moles/Vol] 7 mmol/L 3 - 13 mmol/L [facility] Work Phone: [phone] Calcium [Mass/Vol] 8.5 mg/dL 8.4 - 10. 4 mg/dL [facility] Work Phone: [phone] Chloride [Moles/Vol] 94 mmol/L Low 98 - 10 7 mmol/L [facility] Work Phone: [phone] CO2 [Moles/Vol] 25 mmol/L 22 - 30 mmol/L [facility] Work Phone: [phone] Creatinine [Mass/Vol] 3.08 mg/dL High 0.52 - 1.25 mg/dL [facility] Work Phone: [phone] EGFR IF NonAfrican Syrian 16.5 mL/min Abnormal >60 [facility] Work Phone: [phone] GFR/1.73 sq M.predicted among blacks MDRD (S/P/Bld) [Vol rate/Area] 19.1 mL/min/{1.73_m2} Abnormal >60 [facility] Work Phone: [phone] Glucose [Mass/Vol] 131 mg/dL High 70 - 100 mg/dL [facility] Work Phone: [phone] Interpretation and review of laboratory results Abnormal [facility] Work Phone: [phone] Potassium [Moles/Vol] 4.4 mmol/L 3.5 - 5.1 mmol/L [facility] Work Phone: [phone] Sodium [Moles/Vol] 126 mmol/L Low 135 - 145 mmol/L [facility] Work Phone: [phone] Urea nitrogen (BldV) [Mass/Vol] 52 mg/dL High 7 - 20 mg/dL [facility] Work Phone: [phone] [facility] Work Phone: [phone] [facility] Work Phone: [phone] Basic Metabolic PanelOrdered By: Shashank Sellers on 06-27-2021 Anion gap [Moles/Vol] 9 mmol/L 3 - 13 mmol/L [facility] Work Phone: Anion gap [Moles/Vol] 7 mmol/L 3 - 13 mmol/L [facility] Work Phone: [phone] Calcium [Mass/Vol] 8.3 mg/dL Low 8.4 - 10. 4 mg/dL [facility] Work Phone: [phone] Calcium [Mass/Vol] 8.2 mg/dL Low 8.4 - 10. 4 mg/dL [facility] Work Phone: [phone] CO2 [Moles/Vol] 21 mmol/L Low 22 - 30 mmol/L [facility] Work Phone: [phone] CO2 [Moles/Vol] 23 mmol/L 22 - 30 mmol/L [facility] Work Phone: [phone] Creatinine [Mass/Vol] 3.03 mg/dL High 0.52 - 1.25 mg/dL [facility] Work Phone: [phone] Creatinine [Mass/Vol] 3.2 mg/dL High 0.52 - 1.25 mg/dL [facility] Work Phone: [phone] EGFR IF NonAfrican Syrian 16.8 mL/min Abnormal >60 [facility] Work Phone: [phone] EGFR IF NonAfrican Syrian 15.7 mL/min Abnormal >60 [facility] Work Phone: [phone] GFR/1.73 sq M.predicted among blacks MDRD (S/P/Bld) [Vol rate/Area] 19.4 mL/min/{1.73_m2} Abnormal >60 [facility] Work Phone: [phone] GFR/1.73 sq M.predicted among blacks MDRD (S/P/Bld) [Vol rate/Area] 18.2 mL/min/{1.73_m2} Abnormal >60 [facility] Work Phone: [phone] Glucose [Mass/Vol] 122 mg/dL High 70 - 100 mg/dL [facility] Work Phone: [phone] Glucose [Mass/Vol] 124 mg/dL High 70 - 100 mg/dL [facility] Work Phone: [phone] Potassium [Moles/Vol] 4.6 mmol/L 3.5 - 5.1 mmol/L [facility] Work Phone: [phone] Potassium [Moles/Vol] 4.5 mmol/L 3.5 - 5.1 mmol/L [facility] Work Phone: [phone] Urea nitrogen (BldV) [Mass/Vol] 50 mg/dL High 7 - 20 mg/dL [facility] Work Phone: Urea nitrogen (BldV) [Mass/Vol] 49 mg/dL High 7 - 20 mg/dL [facility] Work Phone: [phone] CBC auto differentialOrdered By: Michelle Coelho on 06-27-2021 Absolute Baso # 0.0 10*3/uL 0.0 - 0.2 10*3/uL [facility] Work Phone: [phone] Absolute Eos # 0.4 10*3/uL 0.0 - 0.5 10*3/uL [facility] Work Phone: Absolute Lymph # 0.7 10*3/uL Low 1.0 - 4.3 10*3/uL [facility] Work Phone: Absolute [place] # 0.7 10*3/uL 0.0 - 0.8 10*3/uL [facility] Work Phone: Absolute Neut # 4.3 10*3/uL 1.8 - 7.0 10*3/uL [facility] Work Phone: [phone] Basophils/100 WBC (Bld) 0.7 % 0.0 - 2.0 % [facility] Work Phone: [phone] Eosinophils/100 WBC (Bld) 6.6 % High 1.0 - 6.0 % [facility] Work Phone: [phone] Granulocytes/100 WBC (Bld) 69.9 % 40.0 - 80.0 % [facility] Work Phone: Hematocrit (Bld) [Volume fraction] 28.3 % Low 35.0 - 47.0 % [facility] Work [phone] Hemoglobin.gastrointes tinal spec 1 Ql (Stl) 9.1 g/dL Low 11.7 - 16.0 g/dL [facility] Work Phone: [phone] Interpretation and review of laboratory results Abnormal [facility] Work Phone: [phone] Lymphocytes/100 WBC (Bld) 11.2 % Low 20.0 - 40.0 % [facility] Work Phone: 1 MCH (RBC) [Entitic mass] 24.2 pg Low 26.0 - 34.0 pg [facility] Work Phone: 1 MCHC (RBC) [Mass/Vol] 32.2 % 32.0 - 36.0 % [facility] Work Phone: MCV (RBC) [Entitic vol] 75.2 fL Low 79.0 - 98.0 fL [facility] Work Phone: Monocytes/100 WBC (Bld) 11.6 % High 2.0 - 10.0 % [facility] Work Phone: 1 Platelet distribution width (Bld) [Ratio] 24.1 % High 11.5 - 14.5 % [facility] Work Phone: Platelet mean volume (Bld) [Entitic vol] 8.1 fL 7.4 - 10.4 fL [facility] Work Phone: Platelets (Bld) [#/Vol] 168 10*3/uL 140 - 440 10*3/uL [facility] Work Phone: RBC (Bld) [#/Vol] 3.76 10*6/uL Low 3.80 - 5.2 0 10*6/uL [facility] Work Phone: WBC (Bld) [#/Vol] 6.1 10*3/uL 3.6 - 10.7 10*3/uL [facility] Work Phone: [phone] [facility] Work Phone: [facility] Work Phone: CORTISOL TOTALOrdered By: Devan Sterling on 06-27-2021 Cortisol 5.9 ug/dL [facility] Work Phone: [phone] [facility] Work Phone: [phone] [facility] Work Phone: [phone] CR Chest Portableon 07-29-20 21 CR Chest Portable Normal [facility] Cortisolon 06-27-2021 Cortisol 5.9 ug/dL Normal [facility] Comment on above: Result Comment: Befo re 10am 4.5-22.7 ug/dLAfter 5pm 1.7-14.1 ug/dL Performed By: #### C ORTL, BMP3 ####[id number] [place], [place] EKG 12 LeadOrdered By: Kathy Sterling on 06-27-2021 [facility] Work Phone: [facility] Work Phone: [facility] Work Phone: Glucose,Bedsideon 06-27-2021 Glucose [Mass/Vol] 174 mg/dL High [address] [facility] Comment on above: Result Comment: Test performed by glucose meter. Results may be 10%-15% lowerthan serum/plasma values. (CLIA ID [id number]) Performed By: #### B GLU ####[id number] [place], [place] Glucose [Mass/Vol] 145 mg/dL [facility] [address] [facility] Comment on above: Result Comment: Test performed by glucose meter. Results may be 10%-15% lowerthan serum/plasma values. (CLIA ID [id number]) Performed By: #### B GLU ####[id number] [place], [place] Glucose [Mass/Vol] 114 mg/dL [facility] [address] [facility] Comment on above: Result Comment: Test performed by glucose meter. Results may be 10%-15% lowerthan serum/plasma values. (CLIA ID [id number]) Performed By: #### B GLU ####[id number] [place], [place] Hemogram w/ Autodiffon 06-27 Abs Baso Cnt 0.0 10*3/uL Normal 0.0-0.2 [facility] Comment on above: Performed By: #### P HOS3, OSM, MG3, HEMDF ####[address] Abs Neutrophile Cnt 4.3 10*3/uL Normal 1.8-7.0 [facility] Comment on above: Performed By: #### P HOS3, OSM, MG3, HEMDF ####[address] Basophils/100 WBC (Bld) 0.7 % Normal 0.0-2.0 [facility] Comment on above: Performed By: #### P HOS3, OSM, MG3, HEMDF ####[address] Eosinophils (Bld) [#/Vol] 0.4 10*3/uL Normal 0.0-0.5 [facility] Comment on above: Performed By: #### P HOS3, OSM, MG3, HEMDF ####[address] Eosinophils/100 WBC (Bld) 6.6 % High 1.0-6.0 [facility] Comment on above: Performed By: #### P HOS3, OSM, MG3, HEMDF ####[address] Erythrocyte distribution width (RBC) [Ratio] 24.1 % High 11.5-14.5 [facility] Comment on above: Performed By: #### P HOS3, OSM, MG3, HEMDF ####[address] Granulocytes/100 WBC (Bld) 69.9 % Normal 40.0-80.0 [facility] Comment on above: Performed By: #### P HOS3, OSM, MG3, HEMDF ####[address] Hematocrit (Bld) [Volume fraction] 28.3 % Low 35.0-47.0 [facility] Comment on above: Performed By: #### P HOS3, OSM, MG3, HEMDF ####[address] Hemoglobin (Bld) [Mass/Vol] 9.1 g/dL Low 11.7-16.0 [facility] Comment on above: Performed By: #### P HOS3, OSM, MG3, HEMDF ####[address] Lymphocytes (Bld) [#/Vol] 0.7 10*3/uL Low 1.0-4.3 [facility] Comment on above: Performed By: #### P HOS3, OSM, MG3, HEMDF ####[address] Lymphocytes/100 WBC (Bld) 11.2 % Low 20.0-40.0 [facility] Comment on above: Performed By: #### P HOS3, OSM, MG3, HEMDF ####[address] MCH (RBC) [Entitic mass] 24.2 pg Low 26.0-34.0 [facility] Comment on above: Performed By: #### P HOS3, OSM, MG3, HEMDF ####[address] MCHC 32.2 % Normal 32.0-36.0 [facility] Comment on above: Performed By: #### P HOS3, OSM, MG3, HEMDF ####[address] MCV (RBC) [Entitic vol] 75.2 fL Low 79.0-98.0 [facility] Comment on above: Performed By: #### P HOS3, OSM, MG3, HEMDF ####[address] Monocytes (Bld) [#/Vol] 0.7 10*3/uL Normal 0.0-0.8 [facility] Comment on above: Performed By: #### P HOS3, OSM, MG3, HEMDF ####[address] Monocytes/100 WBC (Bld) 11.6 % High 2.0-10.0 [facility] Comment on above: Performed By: #### P HOS3, OSM, MG3, HEMDF ####[address] [place], [place] Platelet mean volume (Bld) [Entitic vol] 8.1 fL Normal 7.4-10.4 [facility] Comment on above: Performed By: #### P HOS3, OSM, MG3, HEMDF ####[address] [place], [place] Platelets (Bld) [#/Vol] 168 10*3/uL Normal 140-440 [facility] Comment on above: Performed By: #### P HOS3, OSM, MG3, HEMDF ####[address] RBC (Bld) [#/Vol] 3.76 10*6/uL Low 3.80-5.20 [facility] Comment on above: Performed By: #### P HOS3, OSM, MG3, HEMDF ####[address] [place] WBC (Bld) [#/Vol] 6.1 10*3/uL Normal 3.6-10.7 [facility] Comment on above: Performed By: #### P HOS3, OSM, MG3, HEMDF ####[address] Laboratory - Chemistry and C hemistry - challengeOrdered By: Shashank Sellers on 06-27-2021 Chloride [Moles/Vol] 96 mmol/L Low 98 - 10 7 mmol/L [facility] Work Phone: Sodium [Moles/Vol] 126 mmol/L Low 135 - 145 mmol/L [facility] Work Phone: [phone] Magnesiumon 06-27-2021 Magnesium [Mass/Vol] 2.0 mg/dL Normal 1.6-2.3 [facility] Comment on above: Performed By: #### P HOS3, OSM, MG3, HEMDF ####[employer] [address] [place] [address] MagnesiumOrdered By: Michelle lauren on 06-27-2021 Magnesium [Mass/Vol] 2.0 mg/dL 1.6 - 2 .3 mg/dL [facility] Work Phone: [phone] Panel InformationOrdered By: Lindsey Joyce on 06-27-2021 [facility] Work Phone: [phone] [facility] Work Phone: [phone] No Panel InformationOrdered By: Shashank Sellers on 06-27-2021 Interpretation and review of laboratory results Abnormal [facility] Work Phone: 1 [facility] Work Phone: 1 [facility] Work Phone: [phone] No Panel InformationOrdered By: Michelle Coelho on 06-27-2021 [facility] Work Phone: [phone] [facility] Work Phone: [phone] OsmolalityOrdered By: Lindsey Joyce on 06-27-2021 Serum Osmolality 282 mosm/kg 280 - 300 mosm/kg [facility] Work Phone: [phone] Osmolality,Serumon Osmolality,Serum 282 mosm/kg Normal 280-300 [facility] Comment on above: Performed By: #### P HOS3, OSM, MG3, HEMDF ####[facility] HospitalFis[facility] [address] [place] [address] POCT GlucoseOrdered By: Jessica Soni on 06-27-2021 Glucose [Mass/Vol] 174 mg/dL High 70 - 100 mg/dL [facility] Work Phone: [phone] Interpretation and review of laboratory results Abnormal [facility] Work Phone: [phone] [facility] Work Phone: [phone] [facility] Work Phone: [phone] POCT GlucoseOrdered By: Gennaro Parsons on 06-27-2021 Glucose [Mass/Vol] 145 mg/dL High 70 - 100 mg/dL [facility] Work Phone: [phone] Interpretation and review of laboratory results Abnormal [facility] Work Phone: [phone] [facility] Work Phone: 1 [facility] Work Phone: [phone] Glucose [Mass/Vol] 114 mg/dL High 70 - 100 mg/dL [facility] Work Phone: [phone] Interpretation and review of laboratory results Abnormal [facility] Work Phone: 1 [facility] Work Phone: [phone] [facility] Work Phone: 1 Phosphoruson 06-27-2021 Phosphate [Mass/Vol] 4.8 mg/dL High 2.5-4.5 [facility] [employer] [facility] Comment on above: Performed By: #### P HOS3, OSM, MG3, HEMDF ####[facility] HospitalApplied [facility] Technology[address] [place] [address] PhosphorusOrdered By: Michelle pearson on 06-27-2021 Interpretation and review of laboratory results Abnormal [facility] Work Phone: [phone] Phosphate [Mass/Vol] 4.8 mg/dL High 2.5 - 4 .5 mg/dL [facility] Work Phone: [phone] Vancomycinon 06-27-2021 Vancomycin 52.2 ug/mL High 15.0-20.0 [facility] Comment on above: Result Comment: . Performed By: #### V ANL, BMP3 ####[facility] HospitalApplied [facility] Technology[address] [place] [address] Vancomycin, RandomOrdered By : Silver Nick on 06-27-2021 Interpretation and review of laboratory results Abnormal [facility] Work Phone: [phone] Vancomycin 52.2 ug/mL High 15.0 - 20.0 ug/mL [facility] Work Phone: [phone] [facility] Work Phone: [phone] [facility] Work Phone: [phone] XR CHEST PORTABLEOrdered By: Zack Barakat on 06-27-2021 [facility] Work Phone: [phone] [facility] Work Phone: [phone] [facility] Work Phone: [phone] Add On Lab TestOrdered By: Agusto Kirk on 06-26-2021 Add On Accepted [facility] Work Phone: [phone] [facility] Work Phone: [phone] [facility] Work Phone: [phone] Add on test from HISon 06-26 Add on test from HIS Accepted Normal [facility] Comment on above: Result Comment: Spec imen available & acceptable for analysis. Performed By: #### A DDON ####[address] [place] [place] [address] Basic Metabolic Panelon 05-31 Anion gap [Moles/Vol] 7 mmol/L Normal 3-13 [facility] Comment on above: Performed By: #### U RIC3, BMP3, PCAL ####[address] [place] [place] [address] Calcium [Mass/Vol] 8.4 mg/dL Normal 8.4-10.4 [facility] Comment on above: Performed By: #### U RIC3, BMP3, PCAL ####[address] [place] [address] CO2 [Moles/Vol] 25 mmol/L Normal 22-30 [facility] Comment on above: Performed By: #### U RIC3, BMP3, PCAL ####[address] [place] [address] Glucose [Mass/Vol] 120 mg/dL High 70-100 [facility] Comment on above: Performed By: #### U RIC3, BMP3, PCAL ####[facility] [employer] [id number] [place] [address] Urea nitrogen [Mass/Vol] 44 mg/dL High 7-20 [facility] Comment on above: Performed By: #### U RIC3, BMP3, PCAL ####[address] [place] [address] Creatinine [Mass/Vol] 2.69 mg/dL High 0.52-1.25 [facility] Comment on above: Performed By: #### U RIC3, BMP3, PCAL ####[facility] [employer] [place] [address] GFR/1.73 sq M.predicted among blacks MDRD (S/P/Bld) [Vol rate/Area] 22.5 mL/min/{1.73_m2} Abnormal >60 [facility] Comment on above: Performed By: #### U RIC3, BMP3, PCAL ####[employer] [id number] [place] [address] GFR/1.73 sq M.predicted among non-blacks MDRD (S/P/Bld) [Vol rate/Area] 19.4 mL/min/{1.73_m2} Abnormal >60 [facility] Comment on above: Result Comment: KDIG O guidelines provide the following GFR categories:Stage GFR(ml/min/1.73 m2) TermsG1 >=90 Normal or highG2 60-89 Mildly decreased*G3a 45-59 Mildly to moderately domfkktbgY6l 30-44 Moderately to severely decreasedG4 15-29 Severely [...] Performed By: #### U RIC3, BMP3, PCAL ####[id number] [place] Potassium [Moles/Vol] 4.1 mmol/L Normal 3.5-5.1 [facility] Comment on above: Performed By: #### U RIC3, BMP3, PCAL ####[employer] [id number] [place] Sodium [Moles/Vol] 127 mmol/L Low 135-145 [facility] Comment on above: Performed By: #### U RIC3, BMP3, PCAL ####[address] [place] [address] Chloride [Moles/Vol] 95 mmol/L Low 98-107 [facility] Comment on above: Performed By: #### U RIC3, BMP3, PCAL ####[address] [place] [address] Anion gap [Moles/Vol] 8 mmol/L Normal 3-13 [facility] Comment on above: Performed By: #### B MP3 ####[address] [place] [address] Calcium [Mass/Vol] 8.2 mg/dL Low 8.4-10.4 [facility] Comment on above: Performed By: #### B MP3 ####[address] [place] [address] CO2 [Moles/Vol] 22 mmol/L Normal 22-30 [facility] Comment on above: Performed By: #### B MP3 ####[address] [place] [address] Creatinine [Mass/Vol] 2.46 mg/dL High 0.52-1.25 [facility] Comment on above: Performed By: #### B MP3 ####[address] [place] [address] GFR/1.73 sq M.predicted among blacks MDRD (S/P/Bld) [Vol rate/Area] 25.0 mL/min/{1.73_m2} Abnormal >60 [facility] Comment on above: Performed By: #### B MP3 ####[address] [place] [address] GFR/1.73 sq M.predicted among non-blacks MDRD (S/P/Bld) [Vol rate/Area] 21.6 mL/min/{1.73_m2} Abnormal >60 [facility] Comment on above: Result Comment: KDIG O guidelines provide the following GFR categories:Stage GFR(ml/min/1.73 m2) TermsG1 >=90 Normal or highG2 60-89 Mildly decreased*G3a 45-59 Mildly to moderately [id number] 30-44 Moderately to severely decreasedG4 15-29 Severely [...] creatinine secretion. Performed By: #### B MP3 ####[facility] [employer] [address] [place], [place] Glucose [Mass/Vol] 194 mg/dL High 70-100 [facility] Comment on above: Performed By: #### B MP3 ####[facility] [employer] [address] [place], [place] Urea nitrogen [Mass/Vol] 43 mg/dL High 7-20 [facility] Comment on above: Performed By: #### B MP3 ####[facility] [employer] [address] [place], [place] Chloride [Moles/Vol] 96 mmol/L Low 98-107 [facility] Comment on above: Performed By: #### B MP3 ####[address] [place], [place] Potassium [Moles/Vol] 4.3 mmol/L Normal 3.5-5.1 [facility] Comment on above: Performed By: #### B MP3 ####[address] [place], [place] Sodium [Moles/Vol] 126 mmol/L Low 135-145 [facility] Comment on above: Performed By: #### B MP3 ####[address] [place], [place] Basic Metabolic PanelOrdered By: Shashank Sellers on 06-26-2021 Anion gap [Moles/Vol] 7 mmol/L 3 - 13 mmol/L [facility] Work Phone: [phone] Calcium [Mass/Vol] 8.4 mg/dL 8.4 - 10. 4 mg/dL [facility] Work Phone: [phone] Chloride [Moles/Vol] 95 mmol/L Low 98 - 10 7 mmol/L [facility] Work Phone: [phone] CO2 [Moles/Vol] 25 mmol/L 22 - 30 mmol/L [facility] Work Phone: [phone] Creatinine [Mass/Vol] 2.69 mg/dL High 0.52 - 1.25 mg/dL [facility] Work Phone: [phone] IF NonAfrican Syrian 19.4 mL/min Abnormal >60 [facility] Work Phone: [phone] GFR/1.73 sq M.predicted among blacks MDRD (S/P/Bld) [Vol rate/Area] 22.5 mL/min/{1.73_m2} Abnormal >60 [facility] Work Phone: [phone] Glucose [Mass/Vol] 120 mg/dL High 70 - 100 mg/dL [facility] Work Phone: [phone] Interpretation and review of laboratory results Abnormal [facility] Work Phone: [phone] Potassium [Moles/Vol] 4.1 mmol/L 3.5 - 5.1 mmol/L [facility] Work Phone: [phone] Sodium [Moles/Vol] 127 mmol/L Low 135 - 145 mmol/L [facility] Work Phone: [phone] Urea nitrogen (BldV) [Mass/Vol] 44 mg/dL High 7 - 20 mg/dL [facility] Work Phone: [phone] [facility] Work Phone: [phone] [facility] Work Phone: [phone] CBC auto differentialOrdered By: Michelle Coelho on 06-26-2021 Hematocrit (Bld) [Volume fraction] 30.3 % Low 35.0 - 47.0 % [facility] Work Phone: [phone] Hemoglobin.gastrointes tinal spec 1 Ql (Stl) 9.7 g/dL Low 11.7 - 16.0 g/dL [facility] Work Phone: [phone] Interpretation and review of laboratory results Abnormal [facility] Work Phone: 1 MCH (RBC) [Entitic mass] 23.9 pg Low 26.0 - 34.0 pg [facility] Work Phone: MCHC (RBC) [Mass/Vol] 31.9 % Low 32.0 - 36.0 % [facility] Work Phone: MCV (RBC) [Entitic vol] 75.0 fL Low 79.0 - 98.0 fL [facility] Work Phone: Platelet distribution width (Bld) [Ratio] 24.6 % High 11.5 - 14.5 % [facility] Work Phone: [phone] Platelet mean volume (Bld) [Entitic vol] 7.9 fL 7.4 - 10.4 fL [facility] Work Phone: Platelets (Bld) [#/Vol] 140 10*3/uL 140 - 440 10*3/uL [facility] Work Phone: RBC (Bld) [#/Vol] 4.04 10*6/uL 3.80 - 5.2 0 10*6/uL [facility] Work Phone: [phone] WBC (Bld) [#/Vol] 6.1 10*3/uL 3.6 - 10.7 10*3/uL [facility] Work Phone: 1 [facility] Work Phone: [facility] Work Phone: CREATININE, RANDOM URINEOrde red By: Lindsey Joyce on 06-26-2021 Creatinine (U) [Mass/Vol] 62.6 mg/dL No Range [facility] Work Phone: [phone] Complete Urinalysison 2020 Appearance (U) Turbid Abnormal Clear [facility] Comment on above: Result Comment: . Performed By: #### N AURR, UNURR, CUA2, CRTUR ####[employer] [address] [place] [address]#### OSMUR ####[employer] [address] [place] [address] Bacteria Moderate Abnormal Negative [facility] Comment on above: Result Comment: . Performed By: #### N AURR, UNURR, CUA2, CRTUR ####[facility] [address] [facility], [place] #### OSMUR ####[facility] [address] [place] [address] Bilirubin,Urine Negative Normal Negative [facility] Comment on above: Result Comment: . Performed By: #### N AURR, UNURR, CUA2, CRTUR ####[facility] [address] [place] [place] [address]#### OSMUR ####[facility] [place] [address] Cast, Hyaline Negative Normal Negative [facility] Comment on above: Result Comment: . Performed By: #### N AURR, UNURR, CUA2, CRTUR ####[facility] [address] [facility], [place] #### OSMUR ####[facility] [address] [place] [address] Color (U) Yellow Normal Lt. Yellow [facility] Comment on above: Result Comment: . Performed By: #### N AURR, UNURR, CUA2, CRTUR ####[facility] [address] [facility], [place] #### OSMUR ####[facility] [address] [facility] [place] [address] Glucose Ql (U) Normal Normal Normal (<70) [facility] Comment on above: Result Comment: . Performed By: #### N AURR, UNURR, CUA2, CRTUR ####[facility] [address] [facility] [place] #### OSMUR ####[facility] [address] [place] [address] Ketone,Urine Negative Normal Negative [facility] Comment on above: Result Comment: . Performed By: #### N AURR, UNURR, CUA2, CRTUR ####[facility] [address] [facility] [place] #### OSMUR ####[facility] [place] [address] Leukocytes,Urine Negative Normal Negative [facility] Comment on above: Result Comment: . Performed By: #### N AURR, UNURR, CUA2, CRTUR ####[facility] [address] [facility] #### OSMUR ####[facility] [place] [address] Mucous Threads Few Normal Negative [facility] Comment on above: Result Comment: . Performed By: #### N AURR, UNURR, CUA2, CRTUR ####[address] [facility] [place] #### OSMUR ####[place] [address] [place] [address] Nitrites,Urine Negative Normal Negative [facility] Comment on above: Result Comment: . Performed By: #### N AURR, UNURR, CUA2, CRTUR ####[address] [facility] [place] #### OSMUR ####[facility] [place] [address] Occult Blood,Urine Negative Normal Negative [facility] Comment on above: Result Comment: . Performed By: #### N AURR, UNURR, CUA2, CRTUR ####[facility] [address] [facility] [place] #### OSMUR ####[facility] [place] [address] pH,Urine 5.0 Normal 5.0-8.0 [facility] Comment on above: Result Comment: . Performed By: #### N AURR, UNURR, CUA2, CRTUR ####[facility] [address] [facility] [place] #### OSMUR ####[facility] [place] [address] Protein (U) [Mass/Vol] 20 mg/dL Abnormal Negative [facility] Comment on above: Result Comment: . Performed By: #### N AURR, UNURR, CUA2, CRTUR ####[address] [place], [place] #### OSMUR ####[facility] [place] [address] RBC, Urine 3 - 5 Abnormal 0-2 [facility] Comment on above: Result Comment: . Performed By: #### N AURR, UNURR, CUA2, CRTUR ####[address] [place], [place] #### OSMUR ####[facility] [place] [address] Specific [place],Urine 1.007 Normal 1.005 - 1.030 [facility] Comment on above: Result Comment: . Performed By: #### N AURR, UNURR, CUA2, CRTUR ####[address] [place], [place] #### OSMUR ####[facility] [place] [address] Squamous Epithelial 6 - 10 Abnormal 3-5 [facility] Comment on above: Result Comment: . Performed By: #### N AURR, UNURR, CUA2, CRTUR ####[address] [place], [place] #### OSMUR ####[place] [address] [place] [address] Urobilinogen,Urine Normal Normal Normal (0-1) [facility] Comment on above: Result Comment: . Performed By: #### N AURR, UNURR, CUA2, CRTUR ####[address] [place], [place] #### OSMUR ####[facility] [place] [address] WBC, Urine 3 - 5 Normal 0-5 [facility] Comment on above: Result Comment: . Performed By: #### N AURR, UNURR, CUA2, CRTUR ####[address] [place], [place] #### OSMUR ####[employer] [address] [place] [address] Creatinine, Ur Randomon 05-31 Creatinine, Ur Random 62.6 mg/dL Normal No Range [facility] Comment on above: Performed By: #### N AURR, UNURR, CUA2, CRTUR ####[facility] [employer] [place], [place] #### OSMUR ####[address] [place] [address] EKG 12 LeadOrdered By: Kathy Sterlnig on 06-26-2021 [facility] Work Phone: [facility] Work Phone: [facility] Work Phone: Glucose,Bedsideon 06-26-2021 Glucose [Mass/Vol] 208 mg/dL [facility] [address] [facility] Comment on above: Result Comment: Test performed by glucose meter. Results may be 10%-15% lowerthan serum/plasma values. (CLIA ID [id number]) Performed By: #### B GLU ####[address] [place], [place] Glucose [Mass/Vol] 157 mg/dL [address] Comment on above: Result Comment: Test performed by glucose meter. Results may be 10%-15% lowerthan serum/plasma values. (CLIA ID [id number]) Performed By: #### B GLU ####[address] [place], [place] Glucose [Mass/Vol] 140 mg/dL [facility] [address] Comment on above: Result Comment: Test performed by glucose meter. Results may be 10%-15% lowerthan serum/plasma values. (CLIA ID [id number]) Performed By: #### B GLU ####[address] [place] [address] Glucose [Mass/Vol] 139 mg/dL [facility] [address] [facility] Comment on above: Result Comment: Test performed by glucose meter. Results may be 10%-15% lowerthan serum/plasma values. (CLIA ID [id number]) Performed By: #### B GLU ####[address] Hemogram w/ Autodiffon 06-26 Erythrocyte distribution width (RBC) [Ratio] 24.6 % High 11.5-14.5 [facility] Comment on above: Performed By: #### M DIFF, MG3, HEMDF, PHOS3, LFT3 ####[address] Hematocrit (Bld) [Volume fraction] 30.3 % Low 35.0-47.0 [facility] Comment on above: Performed By: #### M DIFF, MG3, HEMDF, PHOS3, LFT3 ####[address] [place], [place] Hemoglobin (Bld) [Mass/Vol] 9.7 g/dL Low 11.7-16.0 [facility] Comment on above: Performed By: #### M DIFF, MG3, HEMDF, PHOS3, LFT3 ####[address] [place], [place] MCH (RBC) [Entitic mass] 23.9 pg Low 26.0-34.0 [facility] Comment on above: Performed By: #### M DIFF, MG3, HEMDF, PHOS3, LFT3 ####[address] [place] MCHC 31.9 % Low 32.0-36.0 [facility] Comment on above: Performed By: #### M DIFF, MG3, HEMDF, PHOS3, LFT3 ####[address] MCV (RBC) [Entitic vol] 75.0 fL Low 79.0-98.0 [facility] Comment on above: Performed By: #### M DIFF, MG3, HEMDF, PHOS3, LFT3 ####[address] [place], [place] Platelet mean volume (Bld) [Entitic vol] 7.9 fL Normal 7.4-10.4 [facility] Comment on above: Performed By: #### M DIFF, MG3, HEMDF, PHOS3, LFT3 ####[facility] [place], [place] Platelets (Bld) [#/Vol] 140 10*3/uL Normal 140-440 [facility] Comment on above: Performed By: #### M DIFF, MG3, HEMDF, PHOS3, LFT3 ####[address] [place], [place] RBC (Bld) [#/Vol] 4.04 10*6/uL Normal 3.80-5.20 [facility] Comment on above: Performed By: #### M DIFF, MG3, HEMDF, PHOS3, LFT3 ####[address] [place], [place] WBC (Bld) [#/Vol] 6.1 10*3/uL Normal 3.6-10.7 [facility] Comment on above: Performed By: #### M DIFF, MG3, HEMDF, PHOS3, LFT3 ####[address] [place], [place] Hepatic Functionon 1 ALP [Catalytic activity/Vol] 111 U/L Normal 38-126 [facility] Comment on above: Performed By: #### M DIFF, MG3, HEMDF, PHOS3, LFT3 ####[address] [place] ALT [Catalytic activity/Vol] 42 U/L High 0-34 [facility] Comment on above: Result Comment: The ALT test is performed by an updated assay method.Please note that the reference intervals have beenchanged and are now sex specific. Performed By: #### M DIFF, MG3, HEMDF, PHOS3, LFT3 ####[address] [place] AST [Catalytic activity/Vol] 31 U/L Normal 15-46 [facility] Comment on above: Performed By: #### M DIFF, MG3, HEMDF, PHOS3, LFT3 ####[address] [place] Bilirubin [Mass/Vol] 0.4 mg/dL Normal 0.2-1.3 [facility] Comment on above: Performed By: #### M DIFF, MG3, HEMDF, PHOS3, LFT3 ####[address] [place], [place] Bilirubin.indirect [Mass/Vol] 0.0 mg/dL Normal 0.0-0.3 [facility] Comment on above: Performed By: #### M DIFF, MG3, HEMDF, PHOS3, LFT3 ####[address] Protein [Mass/Vol] 5.7 g/dL Low 6.3-8.2 [facility] Comment on above: Performed By: #### M DIFF, MG3, HEMDF, PHOS3, LFT3 ####[address] [place], [place] Albumin [Mass/Vol] 2.7 g/dL Low 3.5-5.0 [facility] Comment on above: Performed By: #### M DIFF, MG3, HEMDF, PHOS3, LFT3 ####[address] [place], [place] Magnesiumon 06-26-2021 Magnesium [Mass/Vol] 1.9 mg/dL Normal 1.6-2.3 [facility] Comment on above: Performed By: #### M DIFF, MG3, HEMDF, PHOS3, LFT3 ####[address] [place], [place] Manual Diffon 06-26-2021 Abs Baso Cnt 0.0 10*3/uL Normal 0.0-0.2 [facility] Comment on above: Performed By: #### M DIFF, MG3, HEMDF, PHOS3, LFT3 ####[address] [place], [place] Abs Eosin Cnt 0.1 10*3/uL Normal 0.0-0.5 [facility] Comment on above: Performed By: #### M DIFF, MG3, HEMDF, PHOS3, LFT3 ####[address] [place], [place] Abs Lymph Cnt 0.8 10*3/uL Low 1.1-4.5 [facility] Comment on above: Performed By: #### M DIFF, MG3, HEMDF, PHOS3, LFT3 ####[address] [place], [place] Abs Monocyte Cnt 0.4 10*3/uL Normal 0.2-1.1 [facility] Comment on above: Performed By: #### M DIFF, MG3, HEMDF, PHOS3, LFT3 ####[address] Abs Neutrophile Cnt 4.7 10*3/uL Normal 2.2-8.2 [facility] Comment on above: Performed By: #### M DIFF, MG3, HEMDF, PHOS3, LFT3 ####[address] [place], [place] Bands 4 % High 0-3 [facility] Comment on above: Performed By: #### M DIFF, MG3, HEMDF, PHOS3, LFT3 ####[address] [place], [place] Basophils 0 % Normal 0-2 [facility] Comment on above: Performed By: #### M DIFF, MG3, HEMDF, PHOS3, LFT3 ####[address] [place], [place] Cells counted 100 Normal [facility] Comment on above: Performed By: #### M DIFF, MG3, HEMDF, PHOS3, LFT3 ####[address] [place], [place] Eosinophils 1 % Normal 1-6 [facility] Comment on above: Performed By: #### M DIFF, MG3, HEMDF, PHOS3, LFT3 ####[facility] [employer] [address] [place] [address] Lymphocytes 13 % Low 20-40 [facility] Comment on above: Performed By: #### M DIFF, MG3, HEMDF, PHOS3, LFT3 ####[facility] [address] [place] [address] Metamyelocytes 2 % Abnormal <1 [facility] Comment on above: Performed By: #### M DIFF, MG3, HEMDF, PHOS3, LFT3 ####[facility] [employer] [address] [place] [address] Monocytes 7 % Normal 2-10 [facility] Comment on above: Performed By: #### M DIFF, MG3, HEMDF, PHOS3, LFT3 ####[facility] [employer] [address] [place] [address] RBC Morphology See Prev Normal [facility] Comment on above: Performed By: #### M DIFF, MG3, HEMDF, PHOS3, LFT3 ####[facility] [employer] [address] [place] [address] Seg Neutrophils 73 % Normal 40-80 [facility] Comment on above: Performed By: #### M DIFF, MG3, HEMDF, PHOS3, LFT3 ####[facility] [employer] [address] [place] [address] Manual DifferentialOrdered B y: Michelle Coelho on 06-26-2021 Absolute Baso # 0.0 10*3/uL 0.0 - 0.2 10*3/uL [facility] Work Phone: [facility] Eos # 0.1 10*3/uL 0.0 - 0.5 10*3/uL [facility] Work Phone: Absolute Lymph # 0.8 10*3/uL Low 1.1 - 4.5 10*3/uL [facility] Work Phone: Absolute [place] # 0.4 10*3/uL 0.2 - 1.1 10*3/uL [facility] Work Phone: Absolute Neut # 4.7 10*3/uL 2.2 - 8.2 10*3/uL [facility] Work Phone: 1 22 Bands 4 % High 0 - 3 % [facility] Work Phone: 1 [phone] Basophils/100 WBC (Bld) 0 % 0 - 2 % [facility] Work Phone: 1 [phone] Eosinophils/100 WBC (Bld) 1 % 1 - 6 % [facility] Work Phone: 1 Interpretation and review of laboratory results Abnormal [facility] Work Phone: [phone] Lymphocytes/100 WBC (Bld) 13 % Low 20 - 40 % [facility] Work Phone: 1 [phone] Metamyelocytes 2 % Abnormal <1 [facility] Work Phone: 1 22 Monocytes/100 WBC (Bld) 7 % 2 - 10 % [facility] Work Phone: 1 22 RBC (Bld) [#/Vol] See Prev [facility] Work Phone: 1 Seg Neutrophils 73 % 40 - 80 % [facility] Work Phone: 1 22 TOTAL CELLS COUNTED 100 [facility] Work Phone: 1 22 [facility] Work Phone: 1 [facility] Work Phone: 1 No Panel InformationOrdered By: Lindsey Joyce on 06-26-2021 [facility] Work Phone: [phone] [facility] Work Phone: 1 Osmolality, UrineOrdered By: Lindsey Joyce on 06-26-2021 Interpretation and review of laboratory results Abnormal [facility] Work Phone: [phone] Osmolality, Ur 178 mosm/kg Low 300 - 1000 mosm/kg [facility] Work Phone: 1 [phone] [facility] Work Phone: 1 [facility] Work Phone: [phone] Osmolality,Urineon Osmolality,Urine 178 mosm/kg Low 300-1000 [facility] Comment on above: Performed By: #### N AURR, UNURR, CUA2, CRTUR ####[facility] [id number] [place] [address]#### OSMUR ####[facility] [employer] [address] [place] [address] POCT GlucoseOrdered By: Gennaro Parsons on 06-26-2021 Glucose [Mass/Vol] 208 mg/dL High 70 - 100 mg/dL [facility] Work Phone: Interpretation and review of laboratory results Abnormal [facility] Work Phone: [phone] [facility] Work Phone: [phone] [facility] Work Phone: [phone] POCT GlucoseOrdered By: Jessica Soni on 06-26-2021 Glucose [Mass/Vol] 157 mg/dL High 70 - 100 mg/dL [facility] Work Phone: Interpretation and review of laboratory results Abnormal [facility] Work Phone: [facility] Work Phone: [facility] Work Phone: [phone] Glucose [Mass/Vol] 140 mg/dL High 70 - 100 mg/dL [facility] Work Phone: Interpretation and review of laboratory results Abnormal [facility] Work Phone: [facility] Work Phone: [facility] Work Phone: Glucose [Mass/Vol] 139 mg/dL High 70 - 100 mg/dL [facility] Work Phone: Interpretation and review of laboratory results Abnormal [facility] Work Phone: [phone] [facility] Work Phone: [facility] Work Phone: Phosphoruson 06-26-2021 Phosphate [Mass/Vol] 3.8 mg/dL Normal 2.5-4.5 [facility] [employer] Comment on above: Performed By: #### M DIFF, MG3, HEMDF, PHOS3, LFT3 ####[facility] [employer] [address] [place] [address] Procalcitoninon 06-26-2021 Procalcitonin 0.32 ng/mL High 0.00-0.09 [facility] Comment on above: Performed By: #### U RIC3, BMP3, PCAL ####[facility] [employer] [address] [place], [place] Interpretation See Below Normal [facility] Comment on above: Result Comment: PCT <0.50 = Low risk of severe sepsis and/or septic shock.PCT >2.00 = High risk of severe sepsis and/or septic shock. Performed By: #### U RIC3, BMP3, PCAL ####[facility] [employer] [address] [place], [place] ProcalcitoninOrdered By: Anthony Sellers on 06-26-2021 Interpretation See Below [facility] Work Phone: [phone] Interpretation and review of laboratory results Abnormal [facility] Work Phone: 1 Procalcitonin 0.32 ng/mL High 0.00 - 0.09 ng/mL [facility] Work Phone: 1 [facility] Work Phone: 1 [facility] Work Phone: 1 22 Sodium, Ur Randomon 06-26-20 21 Sodium, Ur Random < 5 Low 30-90 [facility] Comment on above: Performed By: #### N AURR, UNURR, CUA2, CRTUR ####[facility] [employer] [address] [place], [place] #### OSMUR ####[facility] [employer] [address] [place] [address] Sodium, Urine, RandomOrdered By: Lindsey Joyce on 06-26-2021 Interpretation and review of laboratory results Abnormal [facility] Work Phone: [phone] Sodium (U) [Moles/Vol] mmol/L Low 30 - 90 mmol/L [facility] Work Phone: 1 US RETROPERITONEAL COMPLETEO rdered By: Monae Martinez on 06-26-2021 [facility] Work Phone: [phone] [facility] Work Phone: [phone] [facility] Work Phone: [phone] US Retroperitoneal Completeo n 06-26-2021 US Retroperitoneal Complete Normal [facility] Urea Nitrogen,Ur Randomon Urea nitrogen [Mass/Vol] 276 mg/dL Normal No Range [facility] [employer] [facility] Comment on above: Performed By: #### N AURR, UNURR, CUA2, CRTUR ####[facility] [address] [place] [address]#### OSMUR ####[facility] [employer] [address] [place] [address] Urea nitrogen, urineOrdered By: Lindsey Joyce on 06-26-2021 Urea Nitrogen, Random Urine 276 mg/dL No Range [facility] Work Phone: [phone] Uric Acidon 06-26-2021 Urate [Mass/Vol] 9.4 mg/dL High 2.5-8.5 [facility] Comment on above: Performed By: #### U RIC3, BMP3, PCAL ####[facility] [employer] [address] [place] [address] Uric AcidOrdered By: Shashank snowden on 06-26-2021 Interpretation and review of laboratory results Abnormal [facility] Work Phone: [phone] Urate [Mass/Vol] 9.4 mg/dL High 2.5 - 8.5 mg/dL [facility] Work Phone: [phone] [facility] Work Phone: [phone] [facility] Work Phone: [phone] UrinalysisOrdered By: Lindsey Joyce on 06-26-2021 Appearance (U) Turbid Abnormal Clear NA [facility] Work Phone: [phone] Bacteria, UA Moderate Abnormal Negative /[HPF] [facility] Work Phone: [phone] Bilirubin Urine Negative Negative mg/dL [facility] Work Phone: [phone] Color (U) Yellow Lt. Yellow NA [facility] Work Phone: [phone] Glucose, Ur Normal Normal (<70) mg/dL [facility] Work Phone: [phone] Hyaline Casts, UA Negative Negative /[LPF] [facility] Work Phone: [phone] Interpretation and review of laboratory results Abnormal [facility] Work Phone: [phone] Ketones Ql (U) Negative Negative mg/dL [facility] Work Phone: LEUKOCYTES, UA Negative Negative [place]/uL [facility] Work Phone: [phone] Mucous Threads Few Negative /[LPF] [facility] Work Phone: [phone] Nitrite, Urine Negative Negative NA [facility] Work Phone: [phone] Occult Blood,Urine Negative Negative mg/dL [facility] Work Phone: [phone] pH (U) 5.0 [pH] [facility] Work Phone: 1 RBC, UA 3-5 Abnormal 0 - 2 /[HPF] [facility] Work Phone: 1 Specific [place], Urine 1.007 [facility] Work Phone: [phone] Squam Epithel, UA 6-10 Abnormal 3 - 5 /[HPF] [facility] Work Phone: [phone] Total Protein, Urine 20 mg/dL Abnormal Negative [facility] Work Phone: 1 Urobilinogen, Urine Normal Normal ( 0-1) mg/dL [facility] Work Phone: 1 WBC, UA 3-5 0 - 5 /[HPF] [facility] Work Phone: [phone] [facility] Work Phone: [phone] [facility] Work [facility]: [phone] Vancomycin [place] 06-26-20 21 Vancomycin Trough 58.2 ug/mL High 15.0-20.0 [facility] Comment on above: Result Comment: . Performed By: #### V ANCT ####[facility] [address] [place] [address] Vancomycin, TroughOrdered By : Willie Andrade on 06-26-2021 Interpretation and review of laboratory results Abnormal [facility] Work Phone: [phone] Vancomycin Tr 58.2 ug/mL High 15.0 - 20.0 ug/mL [facility] Work Phone: [phone] [facility] Work Phone: [phone] [facility] Work Phone: [phone] Arterial Blood Gaseson 06-25 CO2 [Moles/Vol] 26.4 mmol/L Normal 23.0-27.0 [facility] Comment on above: Performed By: #### A BG ####[address] [place], [place] HCO3 (Bld) [Moles/Vol] 25.1 mmol/L High 21.0-25.0 [facility] Comment on above: Performed By: #### A BG ####[address] [place], [place] Hemoglobin (Bld) [Mass/Vol] 9.9 g/dL Normal ScreenOnly [facility] Comment on above: Performed By: #### A BG ####[address] Oxygen (Bld) [Partial pressure] 100.6 mm[Hg] High 80.0-100.0 [facility] Comment on above: Performed By: #### A BG ####[address] Oxygen saturation in Blood 97.5 % Normal 95.0-100.0 [facility] Comment on above: Performed By: #### A BG ####[address] pCO2 40.7 mm[Hg] Normal 35.0-45.0 [facility] Comment on above: Performed By: #### A BG ####[address] pH 7.408 Normal 7.350-7.450 [facility] Comment on above: Performed By: #### A BG ####[address] Std Base Excess 0.4 mmol/L Normal -3.0-3.0 [facility] Comment on above: Performed By: #### A BG ####[address] FIO2 No data Normal [facility] Comment on above: Performed By: #### A BG ####[address] Basic Metabolic PanelOrdered By: Shashank Sellers on 06-25-2021 Anion gap [Moles/Vol] 8 mmol/L 3 - 13 mmol/L [facility] Work Phone: [phone] Calcium [Mass/Vol] 8.2 mg/dL Low 8.4 - 10. 4 mg/dL [facility] Work Phone: [phone] Chloride [Moles/Vol] 96 mmol/L Low 98 - 10 7 mmol/L [facility] Work Phone: [phone] CO2 [Moles/Vol] 22 mmol/L 22 - 30 mmol/L [facility] Work Phone: [phone] Creatinine [Mass/Vol] 2.46 mg/dL High 0.52 - 1.25 mg/dL [facility] Work Phone: [phone] EGFR IF NonAfrican Syrian 21.6 mL/min Abnormal >60 [facility] Work Phone: [phone] GFR/1.73 sq M.predicted among blacks MDRD (S/P/Bld) [Vol rate/Area] 25.0 mL/min/{1.73_m2} Abnormal >60 [facility] Work Phone: [phone] Glucose [Mass/Vol] 194 mg/dL High 70 - 100 mg/dL [facility] Work Phone: [phone] Interpretation and review of laboratory results Abnormal [facility] Work Phone: [phone] Potassium [Moles/Vol] 4.3 mmol/L 3.5 - 5.1 mmol/L [facility] Work Phone: [phone] Sodium [Moles/Vol] 126 mmol/L Low 135 - 145 mmol/L [facility] Work Phone: [phone] Urea nitrogen (BldV) [Mass/Vol] 43 mg/dL High 7 - 20 mg/dL [facility] Work Phone: [phone] [facility] Work Phone: [phone] [facility] Work Phone: [phone] Basic Metabolic Panelon 05-31 Calcium [Mass/Vol] 8.6 mg/dL Normal 8.4-10.4 [facility] Comment on above: Performed By: #### B MP3 ####[id number] [place], [place] Anion gap [Moles/Vol] 8 mmol/L Normal 3-13 [facility] Comment on above: Performed By: #### B MP3 ####[address] [place], [place] CO2 [Moles/Vol] 23 mmol/L Normal 22-30 [facility] Comment on above: Performed By: #### B MP3 ####[address] [place], [place] Creatinine [Mass/Vol] 2.25 mg/dL High 0.52-1.25 [facility] Comment on above: Performed By: #### B MP3 ####[address] GFR/1.73 sq M.predicted among blacks MDRD (S/P/Bld) [Vol rate/Area] 27.9 mL/min/{1.73_m2} Abnormal >60 [facility] Comment on above: Performed By: #### B MP3 ####[address] GFR/1.73 sq M.predicted among non-blacks MDRD (S/P/Bld) [Vol rate/Area] 24.0 mL/min/{1.73_m2} Abnormal >60 [facility] Comment on above: Result Comment: KDIG O guidelines provide the following GFR categories:Stage GFR(ml/min/1.73 m2) TermsG1 >=90 Normal or highG2 60-89 Mildly decreased*G3a 45-59 Mildly to moderately ojwxdjmcjP7w 30-44 Moderately to severely decreasedG4 15-29 Severely [...] creatinine secretion. Performed By: #### B MP3 ####[facility] [place] [address] Glucose [Mass/Vol] 119 mg/dL High 70-100 [facility] Comment on above: Performed By: #### B MP3 ####[facility] [place] [address] Urea nitrogen [Mass/Vol] 40 mg/dL High 7-20 [facility] Comment on above: Performed By: #### B MP3 ####[address] [place] [address] Chloride [Moles/Vol] 94 mmol/L Low 98-107 [facility] Comment on above: Performed By: #### B MP3 ####[address] [facility] [place] [address] Potassium [Moles/Vol] 4.7 mmol/L Normal 3.5-5.1 [facility] Comment on above: Performed By: #### B MP3 ####[address] [place] [address] Sodium [Moles/Vol] 124 mmol/L Low 135-145 [facility] Comment on above: Performed By: #### B MP3 ####[address] [facility] [place] [address] Calcium [Mass/Vol] 8.7 mg/dL Normal 8.4-10.4 [facility] Comment on above: Performed By: #### H EMDF, MG3, BMP3M, PHOS3, MDIFF ####[address] [place] [address] Glucose [Mass/Vol] 129 mg/dL High 70-100 [facility] Comment on above: Performed By: #### H EMDF, MG3, BMP3M, PHOS3, MDIFF ####[address] [place] [address] Urea nitrogen [Mass/Vol] 37 mg/dL High 7-20 [facility] Comment on above: Performed By: #### H EMDF, MG3, BMP3M, PHOS3, MDIFF ####[facility] [employer] [id number] [place], [place] Anion gap [Moles/Vol] 9 mmol/L Normal 3-13 [facility] Comment on above: Performed By: #### H EMDF, MG3, BMP3M, PHOS3, MDIFF ####[address] [place] CO2 [Moles/Vol] 20 mmol/L Low 22-30 [facility] Comment on above: Performed By: #### H EMDF, MG3, BMP3M, PHOS3, MDIFF ####[address] [place] Creatinine [Mass/Vol] 1.98 mg/dL High 0.52-1.25 [facility] Comment on above: Performed By: #### H EMDF, MG3, BMP3M, PHOS3, MDIFF ####[address] [place] GFR/1.73 sq M.predicted among blacks MDRD (S/P/Bld) [Vol rate/Area] 32.5 mL/min/{1.73_m2} Abnormal >60 [facility] Comment on above: Performed By: #### H EMDF, MG3, BMP3M, PHOS3, MDIFF ####[address] [place] GFR/1.73 sq M.predicted among non-blacks MDRD (S/P/Bld) [Vol rate/Area] 28.1 mL/min/{1.73_m2} Abnormal >60 [facility] Comment on above: Result Comment: KDIG O guidelines provide the following GFR categories:Stage GFR(ml/min/1.73 m2) TermsG1 >=90 Normal or highG2 60-89 Mildly decreased*G3a 45-59 Mildly to moderately ofdlrmatwP5o 30-44 Moderately to severely decreasedG4 15-29 Severely [...] secretion. Performed By: #### H EMDF, MG3, BMP3M, PHOS3, MDIFF ####[address] [place], [place] Potassium [Moles/Vol] 4.2 mmol/L Normal 3.5-5.1 [facility] Comment on above: Performed By: #### H EMDF, MG3, BMP3M, PHOS3, MDIFF ####[address] [place] Chloride [Moles/Vol] 96 mmol/L Low 98-107 [facility] Comment on above: Performed By: #### H EMDF, MG3, BMP3M, PHOS3, MDIFF ####[address] [place] Sodium [Moles/Vol] 125 mmol/L Low 135-145 [facility] Comment on above: Performed By: #### H EMDF, MG3, BMP3M, PHOS3, MDIFF ####[address] [place], [place] Basic Metabolic PanelOrdered By: Checo Kirk on 06-25-2021 Anion gap [Moles/Vol] 8 mmol/L 3 - 13 mmol/L [facility] Work Phone: Calcium [Mass/Vol] 8.6 mg/dL 8.4 - 10. 4 mg/dL [facility] Work Phone: Chloride [Moles/Vol] 94 mmol/L Low 98 - 10 7 mmol/L [facility] Work Phone: CO2 [Moles/Vol] 23 mmol/L 22 - 30 mmol/L [facility] Work Phone: Creatinine [Mass/Vol] 2.25 mg/dL High 0.52 - 1.25 mg/dL [facility] Work Phone: [phone] EGFR IF NonAfrican Syrian 24.0 mL/min Abnormal >60 [facility] Work Phone: [phone] GFR/1.73 sq M.predicted among blacks MDRD (S/P/Bld) [Vol rate/Area] 27.9 mL/min/{1.73_m2} Abnormal >60 [facility] Work Phone: [phone] Glucose [Mass/Vol] 119 mg/dL High 70 - 100 mg/dL [facility] Work Phone: [phone] Interpretation and review of laboratory results Abnormal [facility] Work Phone: [phone] Potassium [Moles/Vol] 4.7 mmol/L 3.5 - 5.1 mmol/L [facility] Work Phone: [phone] Sodium [Moles/Vol] 124 mmol/L Low 135 - 145 mmol/L [facility] Work Phone: [phone] Urea nitrogen (BldV) [Mass/Vol] 40 mg/dL High 7 - 20 mg/dL [facility] Work Phone: [phone] [facility] Work Phone: [phone] [facility] Work Phone: [phone] Basic Metabolic Panel w/ Ref kaitlin to MGOrdered By: Michelle Coelho on 06-25-2021 Anion gap [Moles/Vol] 9 mmol/L 3 - 13 mmol/L [facility] Work Phone: [phone] Calcium [Mass/Vol] 8.7 mg/dL 8.4 - 10. 4 mg/dL [facility] Work Phone: [phone] Chloride [Moles/Vol] 96 mmol/L Low 98 - 10 7 mmol/L [facility] Work Phone: [phone] CO2 [Moles/Vol] 20 mmol/L Low 22 - 30 mmol/L [facility] Work Phone: [phone] Creatinine [Mass/Vol] 1.98 mg/dL High 0.52 - 1.25 mg/dL [facility] Work Phone: [phone] EGFR IF NonAfrican Syrian 28.1 mL/min Abnormal >60 [facility] Work Phone: [phone] GFR/1.73 sq M.predicted among blacks MDRD (S/P/Bld) [Vol rate/Area] 32.5 mL/min/{1.73_m2} Abnormal >60 [facility] Work Phone: [phone] Glucose [Mass/Vol] 129 mg/dL High 70 - 100 mg/dL [facility] Work Phone: [phone] Interpretation and review of laboratory results Abnormal [facility] Work Phone: [phone] Potassium [Moles/Vol] 4.2 mmol/L 3.5 - 5.1 mmol/L [facility] Work Phone: [phone] Sodium [Moles/Vol] 125 mmol/L Low 135 - 145 mmol/L [facility] Work Phone: [phone] Urea nitrogen (BldV) [Mass/Vol] 37 mg/dL High 7 - 20 mg/dL [facility] Work Phone: [phone] Blood Gas, ArterialOrdered B y: Willie Andrade on 06-25-2021 Base Excess, Arterial 0.4 mmol/L -3.0 - 3.0 mmol/L [facility] Work Phone: [phone] FIO2 Arterial No data [facility] Work Phone: [phone] HCO3, Arterial 25.1 mmol/L High 21.0 - 25.0 mmol/L [facility] Work Phone: [phone] Hemoglobin, Art, Extended 9.9 g/dL ScreenOnly [facility] Work Phone: [phone] Interpretation and review of laboratory results Abnormal [facility] Work Phone: [phone] O2 Sat, Arterial 97.5 % 95.0 - 100. 0 % [facility] Work Phone: [phone] pCO2, Arterial 40.7 mm[Hg] 35.0 - 45.0 mm[Hg] [facility] Work Phone: [phone] pH, Arterial 7.408 [facility] Work Phone: [phone] pO2, Arterial 100.6 mm[Hg] High 80.0 - 100.0 mm[Hg] [facility] Work Phone: [phone] TCO2, Arterial 26.4 mmol/L 23.0 - 27.0 mmol/L [facility] Work Phone: [phone] [facility] Work Phone: [facility] Work Phone: CBC auto differentialOrdered By: Michelle Coelho on 06-25-2021 Hematocrit (Bld) [Volume fraction] 33.6 % Low 35.0 - 47.0 % [facility] Work Phone: Hemoglobin.gastrointes tinal spec 1 Ql (Stl) 10.7 g/dL Low 11.7 - 16.0 g/dL [facility] Work Phone: Interpretation and review of laboratory results Abnormal [facility] Work Phone: MCH (RBC) [Entitic mass] 23.7 pg Low 26.0 - 34.0 pg [facility] Work Phone: MCHC (RBC) [Mass/Vol] 31.7 % Low 32.0 - 36.0 % [facility] Work Phone: MCV (RBC) [Entitic vol] 74.9 fL Low 79.0 - 98.0 fL [facility] Work Phone: Platelet distribution width (Bld) [Ratio] 25.1 % High 11.5 - 14.5 % [facility] Work Phone: Platelet mean volume (Bld) [Entitic vol] 8.0 fL 7.4 - 10.4 fL [facility] Work Phone: Platelets (Bld) [#/Vol] 155 10*3/uL 140 - 440 10*3/uL [facility] Work Phone: RBC (Bld) [#/Vol] 4.49 10*6/uL 3.80 - 5.2 0 10*6/uL [facility] Work Phone: WBC (Bld) [#/Vol] 7.2 10*3/uL 3.6 - 10.7 10*3/uL [facility] Work Phone: [facility] Work Phone: [facility] Work Phone: [phone] CR Chest Portableon 06-25-20 21 CR Chest Portable Normal [facility] CULTURE BLOODon 06-25-2021 Microscopic examination of blood, culture CULTURE BLOOD --> Status: F No growth at 5 days. Normal [facility] Comment on above: Performed By: #### C /BLD ####[address] CULTURE BLOOD (Two)on 2020 Microscopic examination of blood, culture CULTURE BLOOD (Two) --> Status: F No growth at 5 days. Normal [facility] Comment on above: Performed By: #### C /BLT ####[address] [address] [place], [place] Glucose,Bedsideon 06-25-2021 Glucose [Mass/Vol] 206 mg/dL High 70-100 [facility] Comment on above: Result Comment: Test performed by glucose meter. Results may be 10%-15% lowerthan serum/plasma values. (CLIA ID [id number]) Performed By: #### B GLU ####[facility] [employer] [address] Glucose [Mass/Vol] 130 mg/dL High 70-100 [facility] Comment on above: Result Comment: Test performed by glucose meter. Results may be 10%-15% lowerthan serum/plasma values. (CLIA ID [id number]) Performed By: #### B GLU ####[address] [place], [place] Hemogram w/ Autodiffon 06-25 Erythrocyte distribution width (RBC) [Ratio] 25.1 % High 11.5-14.5 [facility] Comment on above: Performed By: #### H EMDF, MG3, BMP3M PHOWoodrow, MDIFF ####[facility] [employer] [id number] [place], [place] Hematocrit (Bld) [Volume fraction] 33.6 % Low 35.0-47.0 [facility] Comment on above: Performed By: #### H EMDF, MG3, BMP3M, PHOS3, MDIFF ####[address] [place], [place] Hemoglobin (Bld) [Mass/Vol] 10.7 g/dL Low 11.7-16.0 [facility] Comment on above: Performed By: #### H EMDF, MG3, BMP3M, PHOS3, MDIFF ####[address] [place], [place] MCH (RBC) [Entitic mass] 23.7 pg Low 26.0-34.0 [facility] Comment on above: Performed By: #### H EMDF, MG3, BMP3M, PHOS3, MDIFF ####[address] MCHC 31.7 % Low 32.0-36.0 [facility] Comment on above: Performed By: #### H EMDF, MG3, BMP3M, PHOS3, MDIFF ####[address] MCV (RBC) [Entitic vol] 74.9 fL Low 79.0-98.0 [facility] Comment on above: Performed By: #### H EMDF, MG3, BMP3M, PHOS3, MDIFF ####[address] [place], [place] Platelet mean volume (Bld) [Entitic vol] 8.0 fL Normal 7.4-10.4 [facility] Comment on above: Performed By: #### H EMDF, MG3, BMP3M, PHOS3, MDIFF ####[address] [place], [place] Platelets (Bld) [#/Vol] 155 10*3/uL Normal 140-440 [facility] Comment on above: Performed By: #### H EMDF, MG3, BMP3M, PHOS3, MDIFF ####[address] RBC (Bld) [#/Vol] 4.49 10*6/uL Normal 3.80-5.20 [facility] Comment on above: Performed By: #### H EMDF, MG3, BMP3M, ELVIN, MDIFF ####[facility] [employer] [id number] [place], [place] WBC (Bld) [#/Vol] 7.2 10*3/uL Normal 3.6-10.7 [facility] Comment on above: Performed By: #### H EMDF, MG3, BMP3M, PHOS3, MDIFF ####[facility] [employer] [id number] [place] [address] Hepatic Function PanelOrdere d By: Tello Sterling on 06-25-2021 Albumin [Mass/Vol] 2.7 g/dL Low 3.5 - 5.0 g/dL [facility] Work Phone: [phone] ALP (Bld) [Catalytic activity/Vol] 111 U/L 38 - 126 U/L [facility] Work Phone: [phone] [Catalytic activity/Vol] 42 U/L High 0 - 34 U/L [facility] Work Phone: [phone] AST [Catalytic activity/Vol] 31 U/L 15 - 46 U/L [facility] Work Phone: [phone] Bilirubin [Mass/Vol] 0.4 mg/dL 0.2 - 1 .3 mg/dL [facility] Work Phone: [phone] Bilirubin.indirect [Mass/Vol] 0.0 mg/dL 0.0 - 0.3 mg/dL [facility] Work Phone: [phone] Free PSA/Total PSA [Mass fraction] 5.7 g/dL Low 6.3 - 8.2 g/dL [facility] Work Phone: [phone] Interpretation and review of laboratory results Abnormal [facility] Work Phone: [phone] MagnesiumOrdered By: Michelle lauren on 06-25-2021 Magnesium [Mass/Vol] 1.9 mg/dL 1.6 - 2 .3 mg/dL [facility] Work Phone: [phone] Magnesium [Mass/Vol] 2.1 mg/dL 1.6 - 2 .3 mg/dL [facility] Work Phone: Magnesiumon 06-25-2021 Magnesium [Mass/Vol] 2.1 mg/dL Normal 1.6-2.3 [facility] Comment on above: Performed By: #### H EMDF, MG3, BMP3M, PHOWoodrow, IFF ####[address] [place], [place] Manual Diffon 06-25-2021 Abs Baso Cnt 0.0 10*3/uL Normal 0.0-0.2 [facility] Comment on above: Performed By: #### H EMDF, MG3, BMP3M, PHOS3, MDIFF ####[address] Abs Eosin Cnt 0.2 10*3/uL Normal 0.0-0.5 [facility] Comment on above: Performed By: #### H EMDF, MG3, BMP3M, PHOS3, MDIFF ####[address] Abs Lymph Cnt 0.5 10*3/uL Low 1.1-4.5 [facility] Comment on above: Performed By: #### H EMDF, MG3, BMP3M, PHOWoodrow, MDIFF ####[address] Abs Monocyte Cnt 0.1 10*3/uL Low 0.2-1.1 [facility] Comment on above: Performed By: #### H EMDF, MG3, BMP3M, PHOS3, MDIFF ####[address] Abs Neutrophile Cnt 6.2 10*3/uL Normal 2.2-8.2 [facility] Comment on above: Performed By: #### H EMDF, MG3, BMP3M, PHOS3, MDIFF ####[address] [place], [place] Bands 0 % Normal 0-3 [facility] Comment on above: Performed By: #### H EMDF, MG3, BMP3M, PHOS3, MDIFF ####[facility] [id number] [place], [place] Basophils 0 % Normal 0-2 [facility] Comment on above: Performed By: #### H EMDF, MG3, BMP3M, PHOS3, MDIFF ####[facility] [id number] [place], [place] Cells counted 100 Normal [facility] Comment on above: Performed By: #### H EMDF, MG3, BMP3M, PHOS3, MDIFF ####[facility] [address] [place], [place] Eosinophils 3 % Normal 1-6 [facility] Comment on above: Performed By: #### H EMDF, MG3, BMP3M, PHOS3, MDIFF ####[facility] [address] [place], [place] Lymphocytes 7 % Low 20-40 [facility] Comment on above: Performed By: #### H EMDF, MG3, BMP3M, PHOS3, MDIFF ####[facility] [address] [place], [place] Metamyelocytes 3 % Abnormal <1 [facility] Comment on above: Performed By: #### H EMDF, MG3, BMP3M, PHOS3, MDIFF ####[facility] [address] [place], [place] Monocytes 1 % Low 2-10 [facility] Comment on above: Performed By: #### H EMDF, MG3, BMP3M, PHOS3, MDIFF ####[facility] [address] [place], [place] RBC Morphology See Prev Normal [facility] Comment on above: Performed By: #### H EMDF, MG3, BMP3M, PHOS3, MDIFF ####[facility] [address] [place], [place] Seg Neutrophils 86 % High 40-80 [facility] Comment on above: Performed By: #### H EMDF, MG3, BMP3M, PHOS3, MDIFF ####[facility] [id number] [place] [address] Manual DifferentialOrdered B y: Michelle Coelho on 06-25-2021 Absolute Baso # 0.0 10*3/uL 0.0 - 0.2 10*3/uL [facility] Work Phone: [phone] Absolute Eos # 0.2 10*3/uL 0.0 - 0.5 10*3/uL [facility] Work Phone: [phone] Absolute Lymph # 0.5 10*3/uL Low 1.1 - 4.5 10*3/uL [facility] Work Phone: [phone] Absolute [place] # 0.1 10*3/uL Low 0.2 - 1.1 10*3/uL [facility] Work Phone: [phone] Absolute Neut # 6.2 10*3/uL 2.2 - 8.2 10*3/uL [facility] Work Phone: [phone] Bands 0 % 0 - 3 % [facility] Work Phone: 22 Basophils/100 WBC (Bld) 0 % 0 - 2 % [facility] Work Phone: 22 Eosinophils/100 WBC (Bld) 3 % 1 - 6 % [facility] Work Phone: [phone] Interpretation and review of laboratory results Abnormal [facility] Work Phone: [phone] Lymphocytes/100 WBC (Bld) 7 % Low 20 - 40 % [facility] Work Phone: 22 Metamyelocytes 3 % Abnormal <1 [facility] Work Phone: 22 Monocytes/100 WBC (Bld) 1 % Low 2 - 10 % [facility] Work Phone: 22 RBC (Bld) [#/Vol] See Prev [facility] Work Phone: 22 Seg Neutrophils 86 % High 40 - 80 % [facility] Work Phone: [phone] TOTAL CELLS COUNTED 100 [facility] Work Phone: 22 [facility] Work Phone: 22 [facility] Work Phone: [phone] No Panel InformationOrdered By: Michelle Coelho on 06-25-2021 [facility] Work Phone: [phone] [facility] Work Phone: [phone] [facility] Work Phone: [phone] [facility] Work Phone: [phone] Panel InformationOrdered By: Eladia Scanlon on 06-25-2021 Blood Culture, Routine No growth at 5 days. [facility] Work Phone: [phone] [facility] Work Phone: [phone] [facility] Work Phone: [phone] POCT GlucoseOrdered By: Gennaro Parsons on 06-25-2021 Glucose [Mass/Vol] 206 mg/dL High 70 - 100 mg/dL [facility] Work Phone: [phone] Interpretation and review of laboratory results Abnormal [facility] Work Phone: [phone] [facility] Work Phone: [phone] [facility] Work Phone: [phone] Glucose [Mass/Vol] 130 mg/dL High 70 - 100 mg/dL [facility] Work Phone: [phone] Interpretation and review of laboratory results Abnormal [facility] Work Phone: [phone] [facility] Work Phone: [phone] [facility] Work Phone: [phone] PhosphorusOrdered By: Michelle pearson on 06-25-2021 Phosphate [Mass/Vol] 3.8 mg/dL 2.5 - 4 .5 mg/dL [facility] Work Phone: [phone] Phosphate [Mass/Vol] 4.0 mg/dL 2.5 - 4 .5 mg/dL [facility] Work Phone: [phone] Phosphoruson 06-25-2021 Phosphate [Mass/Vol] 4.0 mg/dL Normal 2.5-4.5 [facility] [employer] [facility] Comment on above: Performed By: #### H EMDF, MG3, BMP3M, PHOS3, MDIFF ####[facility] [employer] [id number] [place] [address] XR CHEST PORTABLEOrdered By: Willie Andrade on 06-25-2021 [facility] Work Phone: [phone] [facility] Work Phone: [facility] Work Phone: Basic Metabolic Panelon 07-2 Calcium [Mass/Vol] 8.5 mg/dL Normal 8.4-10.4 [facility] Comment on above: Performed By: #### B MP3M, PHOS3, LFT3, ICA, MG3, HEMDF ####[address] [place] [address] Glucose [Mass/Vol] 152 mg/dL High 70-100 [facility] Comment on above: Performed By: #### B MP3M, PHOS3, LFT3, ICA, MG3, HEMDF ####[facility] [employer] [id number] [place], [place] Urea nitrogen [Mass/Vol] 34 mg/dL High 7-20 [facility] Comment on above: Performed By: #### B MP3M, PHOS3, LFT3, ICA, MG3, HEMDF ####[facility] [employer] [id number] [place] [address] Anion gap [Moles/Vol] 7 mmol/L Normal 3-13 [facility] Comment on above: Performed By: #### B MP3M, PHOS3, LFT3, ICA, MG3, HEMDF ####[facility] [employer] [id number] [facility] [place] [place] CO2 [Moles/Vol] 28 mmol/L Normal 22-30 [facility] Comment on above: Performed By: #### B MP3M, PHOS3, LFT3, ICA, MG3, HEMDF ####[facility] [employer] [id number] [place] [address] Creatinine [Mass/Vol] 1.26 mg/dL High 0.52-1.25 [facility] Comment on above: Performed By: #### B MP3M, PHOS3, LFT3, ICA, MG3, HEMDF ####[facility] [employer] [id number] [place] [address] GFR/1.73 sq M.predicted among blacks MDRD (S/P/Bld) [Vol rate/Area] 56.2 mL/min/{1.73_m2} Abnormal >60 [facility] Comment on above: Performed By: #### B MP3M, PHOS3, LFT3, ICA, MG3, HEMDF ####[facility] [employer] [id number] [place] [address] GFR/1.73 sq M.predicted among non-blacks MDRD (S/P/Bld) [Vol rate/Area] 48.5 mL/min/{1.73_m2} Abnormal >60 [facility] Comment on above: Result Comment: KDIG O guidelines provide the following GFR categories:Stage GFR(ml/min/1.73 m2) TermsG1 >=90 Normal or highG2 60-89 Mildly decreased*G3a 45-59 Mildly to moderately [id number] 30-44 Moderately to severely decreasedG4 15-29 Severely [...] B MP3M, PHOS3, LFT3, ICA, MG3, HEMDF ####[facility] [employer] [id number] [place], [place] Chloride [Moles/Vol] 96 mmol/L Low 98-107 [facility] Comment on above: Performed By: #### B MP3M, PHOS3, LFT3, ICA, MG3, HEMDF ####[address] [place] [address] Potassium [Moles/Vol] 4.1 mmol/L Normal 3.5-5.1 [facility] Comment on above: Result Comment: Slig htly hemolysed, interpret with caution. Performed By: #### B MP3M, PHOS3, LFT3, ICA, MG3, HEMDF ####[facility] [employer] [address] [place] [address] Sodium [Moles/Vol] 131 mmol/L Low 135-145 [facility] Comment on above: Performed By: #### B MP3M, PHOS3, LFT3, ICA, MG3, HEMDF ####[address] [address] Basic Metabolic Panel w/ Ref kaitlin to MGOrdered By: Michelle Coelho on 06-24-2021 Anion gap [Moles/Vol] 7 mmol/L 3 - 13 mmol/L [facility] Work Phone: Calcium [Mass/Vol] 8.5 mg/dL 8.4 - 10. 4 mg/dL [facility] Work Phone: [phone] Chloride [Moles/Vol] 96 mmol/L Low 98 - 10 7 mmol/L [facility] Work Phone: [phone] CO2 [Moles/Vol] 28 mmol/L 22 - 30 mmol/L [facility] Work Phone: Creatinine [Mass/Vol] 1.26 mg/dL High 0.52 - 1.25 mg/dL [facility] Work Phone: EGFR IF NonAfrican Syrian 48.5 mL/min Abnormal >60 [facility] Work Phone: GFR/1.73 sq M.predicted among blacks MDRD (S/P/Bld) [Vol rate/Area] 56.2 mL/min/{1.73_m2} Abnormal >60 [facility] Work Phone: [phone] Glucose [Mass/Vol] 152 mg/dL High 70 - 100 mg/dL [facility] Work Phone: [phone] Potassium [Moles/Vol] 4.1 mmol/L 3.5 - 5.1 mmol/L [facility] Work Phone: Sodium [Moles/Vol] 131 mmol/L Low 135 - 145 mmol/L [facility] Work Phone: Urea nitrogen (BldV) [Mass/Vol] 34 mg/dL High 7 - 20 mg/dL [facility] Work Phone: CBC auto differentialOrdered By: Michelle Coelho on 06-24-2021 Absolute Baso # 0.1 10*3/uL 0.0 - 0.2 10*3/uL [facility] Work Phone: [phone] Absolute Eos # 0.4 10*3/uL 0.0 - 0.5 10*3/uL [facility] Work Phone: [phone] Absolute Lymph # 0.7 10*3/uL Low 1.0 - 4.3 10*3/uL [facility] Work Phone: [phone] Absolute [place] # 0.9 10*3/uL High 0.0 - 0.8 10*3/uL [facility] Work Phone: [phone] Absolute Neut # 5.2 10*3/uL 1.8 - 7.0 10*3/uL [facility] Work Phone: 1 Basophils/100 WBC (Bld) 0.8 % 0.0 - 2.0 % [facility] Work Phone: 22 Eosinophils/100 WBC (Bld) 5.0 % 1.0 - 6.0 % [facility] Work Phone: Granulocytes/100 WBC (Bld) 72.8 % 40.0 - 80.0 % [facility] Work Phone: [phone] Hematocrit (Bld) [Volume fraction] 30.3 % Low 35.0 - 47.0 % [facility] Work Phone: [phone] Hemoglobin.gastrointes tinal spec 1 Ql (Stl) 9.8 g/dL Low 11.7 - 16.0 g/dL [facility] Work Phone: [phone] Interpretation and review of laboratory results Abnormal [facility] Work Phone: [phone] Lymphocytes/100 WBC (Bld) 9.5 % Low 20.0 - 40.0 % [facility] Work Phone: [phone] MCH (RBC) [Entitic mass] 23.8 pg Low 26.0 - 34.0 pg [facility] Work Phone: [phone] MCHC (RBC) [Mass/Vol] 32.4 % 32.0 - 36.0 % [facility] Work Phone: [phone] MCV (RBC) [Entitic vol] 73.6 fL Low 79.0 - 98.0 fL [facility] Work Phone: [phone] Monocytes/100 WBC (Bld) 11.9 % High 2.0 - 10.0 % [facility] Work Phone: [phone] Platelet distribution width (Bld) [Ratio] 24.2 % High 11.5 - 14.5 % [facility] Work Phone: [phone] Platelet mean volume (Bld) [Entitic vol] 8.6 fL 7.4 - 10.4 fL [facility] Work Phone: [phone] Platelets (Bld) [#/Vol] 153 10*3/uL 140 - 440 10*3/uL [facility] Work Phone: [phone] RBC (Bld) [#/Vol] 4.12 10*6/uL 3.80 - 5.2 0 10*6/uL [facility] Work Phone: [phone] WBC (Bld) [#/Vol] 7.2 10*3/uL 3.6 - 10.7 10*3/uL [facility] Work Phone: [phone] [facility] Work Phone: [phone] [facility] Work Phone: [phone] CULT./ST. RESPIRATORYon - CULT./ST. RESPIRATORY Normal [facility] Comment on above: Performed By: #### S /GRM ####[address] [place], [place] #### CS/RE ####[address] [place] [address] [place], [place] [id number] Calcium,Ionizedon 06-24-2021 Ionized Ca,Measured 3.80 mg/dL Low 4.30-5.20 [facility] Comment on above: Performed By: #### B MP3M, PHOS3, LFT3, ICA, MG3, HEMDF ####[address] [place], [place] pH, Ionized Calcium 7.40 Normal 7.31-7.46 [facility] Comment on above: Performed By: #### B MP3M, PHOS3, LFT3, ICA, MG3, HEMDF ####[employer] [address] [place] [address] Culture, RespiratoryOrdered By: Jethro Hutchison on 06-24-2021 Interpretation and review of laboratory results Abnormal [facility] Work Phone: [phone] Respiratory Culture Few normal respirato ry pretty. Abnormal [facility] Work Phone: [phone] Respiratory Culture Staphylococcus aureus Abnormal [facility] Work Phone: [phone] Respiratory Culture [facility] Work Phone: [phone] [facility] Work Phone: [phone] [facility] Work Phone: [phone] Glucose,Bedsideon 06-24-2021 Glucose [Mass/Vol] 189 mg/dL High 70100 [facility] Comment on above: Result Comment: Test performed by glucose meter. Results may be 10%-15% lowerthan serum/plasma values. (CLIA ID [id number]) Performed By: #### B GLU ####[employer] [address] [place] [address] Glucose [Mass/Vol] 148 mg/dL [facility] [address] Comment on above: Result Comment: Test performed by glucose meter. Results may be 10%-15% lowerthan serum/plasma values. (CLIA ID [id number]) Performed By: #### B GLU ####[employer] [id number] [place] [address] Glucose [Mass/Vol] 222 mg/dL High [address] Comment on above: Result Comment: Test performed by glucose meter. Results may be 10%-15% lowerthan serum/plasma values. (CLIA ID [id number]) Performed By: #### B GLU ####[employer] [id number] [place] [address] Glucose [Mass/Vol] 214 mg/dL High 70100 [facility] Comment on above: Result Comment: Test performed by glucose meter. Results may be 10%-15% lowerthan serum/plasma values. (CLIA ID [id number]) Performed By: #### B GLU ####[address] [place], [place] Glucose [Mass/Vol] 144 mg/dL High 70-100 [facility] Comment on above: Result Comment: Test performed by glucose meter. Results may be 10%-15% lowerthan serum/plasma values. (CLIA ID [id number]) Performed By: #### B GLU ####[address] Hemogram w/ Autodiffon 06-24 Abs Baso Cnt 0.1 10*3/uL Normal 0.0-0.2 [facility] Comment on above: Performed By: #### B MP3M, PHOS3, LFT3, ICA, MG3, HEMDF ####[address] [place], [place] Abs Neutrophile Cnt 5.2 10*3/uL Normal 1.8-7.0 [facility] Comment on above: Performed By: #### B MP3M, PHOS3, LFT3, ICA, MG3, HEMDF ####[address] [place] Basophils/100 WBC (Bld) 0.8 % Normal 0.0-2.0 [facility] Comment on above: Performed By: #### B MP3M, PHOS3, LFT3, ICA, MG3, HEMDF ####[address] [place] Eosinophils (Bld) [#/Vol] 0.4 10*3/uL Normal 0.0-0.5 [facility] Comment on above: Performed By: #### B MP3M, PHOS3, LFT3, ICA, MG3, HEMDF ####[address] [place] Eosinophils/100 WBC (Bld) 5.0 % Normal 1.0-6.0 [facility] Comment on above: Performed By: #### B MP3M, PHOS3, LFT3, ICA, MG3, HEMDF ####[address] [place] Erythrocyte distribution width (RBC) [Ratio] 24.2 % High 11.5-14.5 [facility] Comment on above: Performed By: #### B MP3M, PHOS3, LFT3, ICA, MG3, HEMDF ####[address] Granulocytes/100 WBC (Bld) 72.8 % Normal 40.0-80.0 [facility] Comment on above: Performed By: #### B MP3M, PHOS3, LFT3, ICA, MG3, HEMDF ####[address] Hematocrit (Bld) [Volume fraction] 30.3 % Low 35.0-47.0 [facility] Comment on above: Performed By: #### B MP3M, PHOS3, LFT3, ICA, MG3, HEMDF ####[address] Hemoglobin (Bld) [Mass/Vol] 9.8 g/dL Low 11.7-16.0 [facility] Comment on above: Performed By: #### B MP3M, PHOS3, LFT3, ICA, MG3, HEMDF ####[address] Lymphocytes (Bld) [#/Vol] 0.7 10*3/uL Low 1.0-4.3 [facility] Comment on above: Performed By: #### B MP3M, PHOS3, LFT3, ICA, MG3, HEMDF ####[address] Lymphocytes/100 WBC (Bld) 9.5 % Low 20.0-40.0 [facility] Comment on above: Performed By: #### B MP3M, PHOS3, LFT3, ICA, MG3, HEMDF ####[address] MCH (RBC) [Entitic mass] 23.8 pg Low 26.0-34.0 [facility] Comment on above: Performed By: #### B MP3M, PHOS3, LFT3, ICA, MG3, HEMDF ####[address] [place] MCHC 32.4 % Normal 32.0-36.0 [facility] Comment on above: Performed By: #### B MP3M, PHOS3, LFT3, ICA, MG3, HEMDF ####[address] [place] MCV (RBC) [Entitic vol] 73.6 fL Low 79.0-98.0 [facility] Comment on above: Performed By: #### B MP3M, PHOS3, LFT3, ICA, MG3, HEMDF ####[address] [place] Monocytes (Bld) [#/Vol] 0.9 10*3/uL High 0.0-0.8 [facility] Comment on above: Performed By: #### B MP3M, PHOS3, LFT3, ICA, MG3, HEMDF ####[address] [place] Monocytes/100 WBC (Bld) 11.9 % High 2.0-10.0 [facility] Comment on above: Performed By: #### B MP3M, PHOS3, LFT3, ICA, MG3, HEMDF ####[address] [place] Platelet mean volume (Bld) [Entitic vol] 8.6 fL Normal 7.4-10.4 [facility] Comment on above: Performed By: #### B MP3M, PHOS3, LFT3, ICA, MG3, HEMDF ####[address] [place] Platelets (Bld) [#/Vol] 153 10*3/uL Normal 140-440 [facility] Comment on above: Performed By: #### B MP3M, PHOS3, LFT3, ICA, MG3, HEMDF ####[address] [place], [place] RBC (Bld) [#/Vol] 4.12 10*6/uL Normal 3.80-5.20 [facility] Comment on above: Performed By: #### B MP3M, PHOS3, LFT3, ICA, MG3, HEMDF ####[address] [place], [place] WBC (Bld) [#/Vol] 7.2 10*3/uL Normal 3.6-10.7 [facility] Comment on above: Performed By: #### B MP3M, PHOS3, LFT3, ICA, MG3, HEMDF ####[address] [place], [place] Hepatic Functionon 1 ALP [Catalytic activity/Vol] 112 U/L Normal 38-126 [facility] Comment on above: Result Comment: Slig htly hemolysed, interpret with caution. Performed By: #### B MP3M, PHOS3, LFT3, ICA, MG3, HEMDF ####[address] [place], [place] ALT [Catalytic activity/Vol] 57 U/L High 0-34 [facility] Comment on above: Result Comment: The ALT test is performed by an updated assay method.Please note that the reference intervals have beenchanged and are now sex specific. Performed By: #### B MP3M, PHOS3, LFT3, ICA, MG3, HEMDF ####[facility] [employer] [id number] [place], [place] AST [Catalytic activity/Vol] 46 U/L Normal 15-46 [facility] Comment on above: Result Comment: Slig htly hemolysed, interpret with caution. Performed By: #### B MP3M, PHOS3, LFT3, ICA, MG3, HEMDF ####[address] [place] Bilirubin [Mass/Vol] 0.7 mg/dL Normal 0.2-1.3 [facility] Comment on above: Performed By: #### B MP3M, PHOS3, LFT3, ICA, MG3, HEMDF ####[facility] [employer] [id number] [place] [address] Bilirubin.indirect [Mass/Vol] 0.0 mg/dL Normal 0.0-0.3 [facility] Comment on above: Performed By: #### B MP3M, PHOS3, LFT3, ICA, MG3, HEMDF ####[facility] [employer] [id number] [place], [place] Protein [Mass/Vol] 6.6 g/dL Normal 6.3-8.2 [facility] Comment on above: Performed By: #### B MP3M, PHOS3, LFT3, ICA, MG3, HEMDF ####[facility] [employer] [id number] [place], [place] Albumin [Mass/Vol] 2.9 g/dL Low 3.5-5.0 [facility] Comment on above: Performed By: #### B MP3M, PHOS3, LFT3, ICA, MG3, HEMDF ####[facility] [employer] [id number] [place], [place] Hepatic Function PanelOrdere d By: Michelle Coelho on 06-24-2021 Albumin [Mass/Vol] 2.9 g/dL Low 3.5 - 5.0 g/dL [facility] Work Phone: [phone] ALP (Bld) [Catalytic activity/Vol] 112 U/L 38 - 126 U/L [facility] Work Phone: [phone] ALT [Catalytic activity/Vol] 57 U/L High 0 - 34 U/L [facility] Work Phone: [phone] AST [Catalytic activity/Vol] 46 U/L 15 - 46 U/L [facility] Work Phone: [phone] Bilirubin [Mass/Vol] 0.7 mg/dL 0.2 - 1 .3 mg/dL [facility] Work Phone: [phone] Bilirubin.indirect [Mass/Vol] 0.0 mg/dL 0.0 - 0.3 mg/dL [facility] Work Phone: 1 Free PSA/Total PSA [Mass fraction] 6.6 g/dL 6.3 - 8.2 g/dL [facility] Work Phone: 1 Ionized CalciumOrdered By: Agusto Coelho on 06-24-2021 Interpretation and review of laboratory results Abnormal [facility] Work Phone: 1 Ionized Ca 3.80 mg/dL Low 4.30 - 5.20 mg/dL [facility] Work Phone: 1 pH (Bld) 7.40 [pH] [facility] Work Phone: 1 [facility] Work Phone: 1 [facility] Work Phone: 1 Magnesiumon 06-24-2021 Magnesium [Mass/Vol] 2.0 mg/dL Normal 1.6-2.3 [facility] Comment on above: Result Comment: Slig htly hemolysed, interpret with caution. Performed By: #### B MP3M, PHOS3, LFT3, ICA, MG3, HEMDF ####[facility] [address] [place] [address] MagnesiumOrdered By: Michelle lauren on 06-24-2021 Magnesium [Mass/Vol] 2.0 mg/dL 1.6 - 2 .3 mg/dL [facility] Work Phone: 1 No Panel InformationOrdered By: Michelle Coelho on 06-24-2021 Interpretation and review of laboratory results Abnormal [facility] Work Phone: 1 [facility] Work Phone: 1 [facility] Work Phone: 1 Osmolality, UrineOrdered By: Tello Sterling on 06-24-2021 Interpretation and review of laboratory results Abnormal [facility] Work Phone: 1 Osmolality, Ur 165 mosm/kg Low 300 - 1000 mosm/kg [facility] Work Phone: 1 [facility] Work Phone: 1 [facility] Work Phone: 1 Osmolality,Urineon Osmolality,Urine 165 mosm/kg Low 300-1000 [facility] Comment on above: Performed By: #### O SMUR ####[facility] [employer] [address] CHRISTIANflorence community [place] [address]#### NACHANTEL ####[facility] [employer] [address] [place] [address] POCT GlucoseOrdered By: Jessica Soni on 06-24-2021 Glucose [Mass/Vol] 189 mg/dL High 70 - 100 mg/dL [facility] Work Phone: Interpretation and review of laboratory results Abnormal [facility] Work Phone: [phone] [facility] Work Phone: [phone] [facility] Work Phone: Glucose [Mass/Vol] 148 mg/dL High 70 - 100 mg/dL [facility] Work Phone: [phone] Interpretation and review of laboratory results Abnormal [facility] Work Phone: [phone] [facility] Work Phone: [phone] [facility] Work Phone: Glucose [Mass/Vol] 222 mg/dL High 70 - 100 mg/dL [facility] Work Phone: Interpretation and review of laboratory results Abnormal [facility] Work Phone: [facility] Work Phone: [facility] Work Phone: Glucose [Mass/Vol] 214 mg/dL High 70 - 100 mg/dL [facility] Work Phone: Interpretation and review of laboratory results Abnormal [facility] Work Phone: [facility] Work Phone: [facility] Work Phone: Glucose [Mass/Vol] 144 mg/dL High 70 - 100 mg/dL [facility] Work Phone: Interpretation and review of laboratory results Abnormal [facility] Work Phone: [facility] Work Phone: [facility] Work Phone: Phosphoruson 06-24-2021 Phosphate [Mass/Vol] 3.9 mg/dL Normal 2.5-4.5 [facility] Comment on above: Result Comment: Slig htly hemolysed, interpret with caution. Performed By: #### B MP3M, PHOS3, LFT3, ICA, MG3, HEMDF ####[address] [place] [address] PhosphorusOrdered By: Michelle pearson on 06-24-2021 Phosphate [Mass/Vol] 3.9 mg/dL 2.5 - 4 .5 mg/dL [facility] Work Phone: [phone] Sodium, Ur Randomon 06-24-20 21 Sodium, Ur Random < 5 Low 30-90 [facility] Comment on above: Performed By: #### O SMUR ####[facility] [employer] [address] [place] [address]#### NAURR ####[address] [place] [address] Sodium, Urine, RandomOrdered By: Tello Sterling on 06-24-2021 Interpretation and review of laboratory results Abnormal [facility] Work Phone: 1 Sodium (U) [Moles/Vol] mmol/L Low 30 - 90 mmol/L [facility] Work Phone: 1 [facility] Work Phone: 1 [facility] Work Phone: 1 Transferrinon 06-24-2021 Transferrin [Mass/Vol] 220 mg/dL Normal 206-381 [facility] Comment on above: Performed By: #### F EIBC ####[facility] [employer] [id number] [place] [address]#### TRFN ####[facility] [employer] [id number] [place] [address] TransferrinOrdered By: Kyung Wong on 06-24-2021 Transferrin [Mass/Vol] 220 mg/dL 206 - 381 mg/dL [facility] Work Phone: 1 [facility] Work Phone: 1 [facility] Work Phone: 1 Add On Lab TestOrdered By: Gaudencio Wong on 06-23-2021 Add On Rejected [facility] Work Phone: [facility] Work Phone: [facility] Work Phone: Add on test from HISon 06-23 Add on test from HIS Rejected Normal [facility] Comment on above: Result Comment: No s pecimen available for addon.Need a yellow top and a green top drawn and orders put in forthe iron and tibc, and transferrin. Spoke with Michelle 11: Performed By: #### A DDON ####[address] [place] [address] Basic Metabolic Panelon 05-31 Anion gap [Moles/Vol] 7 mmol/L Normal 3-13 [facility] Comment on above: Performed By: #### I CA, LFT3, MG3, PHOS3, BMP3M, RBCMO, HEMDF ####[address] [place] [address] CO2 [Moles/Vol] 27 mmol/L Normal 22-30 [facility] Comment on above: Performed By: #### I CA, LFT3, MG3, PHOS3, BMP3M, RBCMO, HEMDF ####[address] [place] [address] Chloride [Moles/Vol] 98 mmol/L Normal 98-107 [facility] Comment on above: Performed By: #### I CA, LFT3, MG3, PHOS3, BMP3M, RBCMO, HEMDF ####[address] [place] [address] Sodium [Moles/Vol] 132 mmol/L Low 135-145 [facility] Comment on above: Performed By: #### I CA, LFT3, MG3, PHOS3, BMP3M, RBCMO, HEMDF ####[address] [place] [address] Calcium [Mass/Vol] 8.4 mg/dL Normal 8.4-10.4 [facility] Comment on above: Performed By: #### I CA, LFT3, MG3, PHOS3, BMP3M, RBCMO, HEMDF ####[address] [place] Glucose [Mass/Vol] 138 mg/dL High 70-100 [facility] Comment on above: Performed By: #### I CA, LFT3, MG3, PHOS3, BMP3M, RBCMO, HEMDF ####[address] [place] Urea nitrogen [Mass/Vol] 31 mg/dL High 7-20 [facility] Comment on above: Performed By: #### I CA, LFT3, MG3, PHOS3, BMP3M, RBCMO, HEMDF ####[address] [place] Creatinine [Mass/Vol] 0.95 mg/dL Normal 0.52-1.25 [facility] Comment on above: Performed By: #### I CA, LFT3, MG3, PHOS3, BMP3M, RBCMO, HEMDF ####[address] [place], [place] GFR/1.73 sq M.predicted among blacks MDRD (S/P/Bld) [Vol rate/Area] 79.1 mL/min/{1.73_m2} Normal >60 [facility] Comment on above: Performed By: #### I CA, LFT3, MG3, PHOS3, BMP3M, RBCMO, HEMDF ####[address] [place] GFR/1.73 sq M.predicted among non-blacks MDRD (S/P/Bld) [Vol rate/Area] 68.2 mL/min/{1.73_m2} Normal >60 [facility] Comment on above: Result Comment: KDIG O guidelines provide the following GFR categories:Stage GFR(ml/min/1.73 m2) TermsG1 >=90 Normal or highG2 60-89 Mildly decreased*G3a 45-59 Mildly to moderately [id number] 30-44 Moderately to severely decreasedG4 15-29 Severely [...] MG3, PHOS3, BMP3M, RBCMO, HEMDF ####[facility] HospitalApplied [facility] Technology[address] [place] [address] Potassium [Moles/Vol] 3.7 mmol/L Normal 3.5-5.1 [facility] Comment on above: Performed By: #### I CA, LFT3, MG3, PHOS3, BMP3M, RBCMO, HEMDF ####[employer] [place] [address] Basic Metabolic Panel w/ Ref kaitlin to MGOrdered By: Michelle Coelho on 06-23-2021 Anion gap [Moles/Vol] 7 mmol/L 3 - 13 mmol/L [facility] Work Phone: Calcium [Mass/Vol] 8.4 mg/dL 8.4 - 10. 4 mg/dL [facility] Work Phone: Chloride [Moles/Vol] 98 mmol/L 98 - 10 7 mmol/L [facility] Work Phone: CO2 [Moles/Vol] 27 mmol/L 22 - 30 mmol/L [facility] Work Phone: Creatinine [Mass/Vol] 0.95 mg/dL 0.52 - 1.25 mg/dL [facility] Work Phone: EGFR IF NonAfrican Syrian 68.2 mL/min >60 [facility] Work Phone: GFR/1.73 sq M.predicted among blacks MDRD (S/P/Bld) [Vol rate/Area] 79.1 mL/min/{1.73_m2} >60 [facility] Work Phone: Glucose [Mass/Vol] 138 mg/dL High 70 - 100 mg/dL [facility] Work Phone: [phone] Interpretation and review of laboratory results Abnormal [facility] Work Phone: 1 Potassium [Moles/Vol] 3.7 mmol/L 3.5 - 5.1 mmol/L [facility] Work Phone: 1 Sodium [Moles/Vol] 132 mmol/L Low 135 - 145 mmol/L [facility] Work Phone: 1 Urea nitrogen (BldV) [Mass/Vol] 31 mg/dL High 7 - 20 mg/dL [facility] Work Phone: 1 [facility] Work Phone: 1 [facility] Work Phone: 1 CBC auto differentialOrdered By: Michelle Coelho on 06-23-2021 Absolute Baso # 0.1 10*3/uL 0.0 - 0.2 10*3/uL [facility] Work Phone: Absolute Eos # 0.4 10*3/uL 0.0 - 0.5 10*3/uL [facility] Work Phone: [phone] Absolute Lymph # 0.9 10*3/uL Low 1.0 - 4.3 10*3/uL [facility] Work Phone: 1 Absolute [place] # 1.2 10*3/uL High 0.0 - 0.8 10*3/uL [facility] Work Phone: [phone] Absolute Neut # 7.0 10*3/uL 1.8 - 7.0 10*3/uL [facility] Work Phone: 1 Basophils/100 WBC (Bld) 0.7 % 0.0 - 2.0 % [facility] Work Phone: Eosinophils/100 WBC (Bld) 4.1 % 1.0 - 6.0 % [facility] Work Phone: Granulocytes/100 WBC (Bld) 73.5 % 40.0 - 80.0 % [facility] Work Phone: [phone] Hematocrit (Bld) [Volume fraction] 32.4 % Low 35.0 - 47.0 % [facility] Work Phone: 1 Hemoglobin.gastrointes tinal spec 1 Ql (Stl) 10.5 g/dL Low 11.7 - 16.0 g/dL [facility] Work Phone: 1 Interpretation and review of laboratory results Abnormal [facility] Work Phone: Lymphocytes/100 WBC (Bld) 9.1 % Low 20.0 - 40.0 % [employer] Work Phone: MCH (RBC) [Entitic mass] 24.1 pg Low 26.0 - 34.0 pg [employer] Work Phone: MCHC (RBC) [Mass/Vol] 32.3 % 32.0 - 36.0 % [employer] Work Phone: MCV (RBC) [Entitic vol] 74.8 fL Low 79.0 - 98.0 fL [facility] Work Phone: Monocytes/100 WBC (Bld) 12.6 % High 2.0 - 10.0 % [employer] Phone: Platelet distribution width (Bld) [Ratio] 23.9 % High 11.5 - 14.5 % [facility] Work Phone: Platelet mean volume (Bld) [Entitic vol] 8.7 fL 7.4 - 10.4 fL [facility] Work Phone: Platelets (Bld) [#/Vol] 148 10*3/uL 140 - 440 10*3/uL [employer] Work Phone: RBC (Bld) [#/Vol] 4.33 10*6/uL 3.80 - 5.2 0 10*6/uL [employer] Work Phone: WBC (Bld) [#/Vol] 9.5 10*3/uL 3.6 - 10.7 10*3/uL [employer] Work Phone: [employer] Work Phone: [employer] Work Phone: Calcium,Ionizedon 06-23-2021 Ionized Ca,Measured 3.90 mg/dL Low 4.30-5.20 [facility] Comment on above: Performed By: #### I CA, LFT3, MG3, PHOS3, BMP3M, RBCMO, HEMDF ####[id number] [place], [place] pH, Ionized Calcium 7.56 High 7.31-7.46 [facility] Comment on above: Performed By: #### I CA, LFT3, MG3, PHOS3, BMP3M, RBCMO, HEMDF ####[address] Glucose,Bedsideon 06-23-2021 Glucose [Mass/Vol] 199 mg/dL High 70-100 [facility] Comment on above: Result Comment: Test performed by glucose meter. Results may be 10%-15% lowerthan serum/plasma values. (CLIA ID [id number]) Performed By: #### B GLU ####[address] Hemogram w/ Autodiffon 06-23 Abs Baso Cnt 0.1 10*3/uL Normal 0.0-0.2 [facility] Comment on above: Performed By: #### I CA, LFT3, MG3, PHOS3, BMP3M, RBCMO, HEMDF ####[address] Abs Neutrophile Cnt 7.0 10*3/uL Normal 1.8-7.0 [facility] Comment on above: Performed By: #### I CA, LFT3, MG3, PHOS3, BMP3M, RBCMO, HEMDF ####[address] Basophils/100 WBC (Bld) 0.7 % Normal 0.0-2.0 [facility] Comment on above: Performed By: #### I CA, LFT3, MG3, PHOS3, BMP3M, RBCMO, HEMDF ####[id number] [place], [place] Eosinophils (Bld) [#/Vol] 0.4 10*3/uL Normal 0.0-0.5 [facility] Comment on above: Performed By: #### I CA, LFT3, MG3, PHOS3, BMP3M, RBCMO, HEMDF ####[id number] [place], [place] Eosinophils/100 WBC (Bld) 4.1 % Normal 1.0-6.0 [facility] Comment on above: Performed By: #### I CA, LFT3, MG3, PHOS3, BMP3M, RBCMO, HEMDF ####[address] Erythrocyte distribution width (RBC) [Ratio] 23.9 % High 11.5-14.5 [facility] Comment on above: Performed By: #### I CA, LFT3, MG3, PHOS3, BMP3M, RBCMO, HEMDF ####[address] [address] Granulocytes/100 WBC (Bld) 73.5 % Normal 40.0-80.0 [facility] Comment on above: Performed By: #### I CA, LFT3, MG3, PHOS3, BMP3M, RBCMO, HEMDF ####[address] [place], [place] Hematocrit (Bld) [Volume fraction] 32.4 % Low 35.0-47.0 [facility] Comment on above: Performed By: #### I CA, LFT3, MG3, PHOS3, BMP3M, RBCMO, HEMDF ####[address] Hemoglobin (Bld) [Mass/Vol] 10.5 g/dL Low 11.7-16.0 [facility] Comment on above: Performed By: #### I CA, LFT3, MG3, PHOS3, BMP3M, RBCMO, HEMDF ####[address] Lymphocytes (Bld) [#/Vol] 0.9 10*3/uL Low 1.0-4.3 [facility] Comment on above: Performed By: #### I CA, LFT3, MG3, PHOS3, BMP3M, RBCMO, HEMDF ####[address] [place], [place] Lymphocytes/100 WBC (Bld) 9.1 % Low 20.0-40.0 [facility] Comment on above: Performed By: #### I CA, LFT3, MG3, PHOS3, BMP3M, RBCMO, HEMDF ####[address] MCH (RBC) [Entitic mass] 24.1 pg Low 26.0-34.0 [facility] Comment on above: Performed By: #### I CA, LFT3, MG3, PHOS3, BMP3M, RBCMO, HEMDF ####[address] MCHC 32.3 % Normal 32.0-36.0 [facility] Comment on above: Performed By: #### I CA, LFT3, MG3, PHOS3, BMP3M, RBCMO, HEMDF ####[address] MCV (RBC) [Entitic vol] 74.8 fL Low 79.0-98.0 [facility] Comment on above: Performed By: #### I CA, LFT3, MG3, PHOS3, BMP3M, RBCMO, HEMDF ####[address] Monocytes (Bld) [#/Vol] 1.2 10*3/uL High 0.0-0.8 [facility] Comment on above: Performed By: #### I CA, LFT3, MG3, PHOS3, BMP3M, RBCMO, HEMDF ####[address] Monocytes/100 WBC (Bld) 12.6 % High 2.0-10.0 [facility] Comment on above: Performed By: #### I CA, LFT3, MG3, PHOS3, BMP3M, RBCMO, HEMDF ####[address] [place], [place] Platelet mean volume (Bld) [Entitic vol] 8.7 fL Normal 7.4-10.4 [facility] Comment on above: Performed By: #### I CA, LFT3, MG3, PHOS3, BMP3M, RBCMO, HEMDF ####[address] [place], [place] Platelets (Bld) [#/Vol] 148 10*3/uL Normal 140-440 [facility] Comment on above: Performed By: #### I CA, LFT3, MG3, PHOS3, BMP3M, RBCMO, HEMDF ####[address] [place], [place] RBC (Bld) [#/Vol] 4.33 10*6/uL Normal 3.80-5.20 [facility] Comment on above: Performed By: #### I CA, LFT3, MG3, PHOS3, BMP3M, RBCMO, HEMDF ####[address] [place], [place] WBC (Bld) [#/Vol] 9.5 10*3/uL Normal 3.6-10.7 [facility] Comment on above: Performed By: #### I CA, LFT3, MG3, PHOS3, BMP3M, RBCMO, HEMDF ####[address] [place], [place] Hepatic Functionon 1 ALT [Catalytic activity/Vol] 72 U/L High 0-34 [facility] Comment on above: Result Comment: The ALT test is performed by an updated assay method.Please note that the reference intervals have beenchanged and are now sex specific. Performed By: #### I CA, LFT3, MG3, PHOS3, BMP3M, RBCMO, HEMDF ####[address] [place], [place] ALP [Catalytic activity/Vol] 116 U/L Normal 38-126 [facility] Comment on above: Performed By: #### I CA, LFT3, MG3, PHOS3, BMP3M, RBCMO, HEMDF ####[address] [place], [place] AST [Catalytic activity/Vol] 50 U/L High 15-46 [facility] Comment on above: Performed By: #### I CA, LFT3, MG3, PHOS3, BMP3M, RBCMO, HEMDF ####[address] [place], [place] Bilirubin [Mass/Vol] 0.6 mg/dL Normal 0.2-1.3 [facility] Comment on above: Performed By: #### I CA, LFT3, MG3, PHOS3, BMP3M, RBCMO, HEMDF ####[address] [place], [place] Bilirubin.indirect [Mass/Vol] 0.0 mg/dL Normal 0.0-0.3 [facility] Comment on above: Performed By: #### I CA, LFT3, MG3, PHOS3, BMP3M, RBCMO, HEMDF ####[address] [place], [place] Protein [Mass/Vol] 6.3 g/dL Normal 6.3-8.2 [facility] Comment on above: Performed By: #### I CA, LFT3, MG3, PHOS3, BMP3M, RBCMO, HEMDF ####[address] [place] Albumin [Mass/Vol] 2.9 g/dL Low 3.5-5.0 [facility] Comment on above: Performed By: #### I CA, LFT3, MG3, PHOS3, BMP3M, RBCMO, HEMDF ####[address] [place], [place] Hepatic Function PanelOrdere d By: Michelle Coelho on 06-23-2021 Albumin [Mass/Vol] 2.9 g/dL Low 3.5 - 5.0 g/dL [facility] Work Phone: ALP (Bld) [Catalytic activity/Vol] 116 U/L 38 - 126 U/L [facility] Work Phone: [phone] ALT [Catalytic activity/Vol] 72 U/L High 0 - 34 U/L [facility] Work Phone: [phone] AST [Catalytic activity/Vol] 50 U/L High 15 - 46 U/L [facility] Work Phone: [phone] Bilirubin [Mass/Vol] 0.6 mg/dL 0.2 - 1 .3 mg/dL [facility] Work Phone: [phone] Bilirubin.indirect [Mass/Vol] 0.0 mg/dL 0.0 - 0.3 mg/dL [facility] Work Phone: [phone] Free PSA/Total PSA [Mass fraction] 6.3 g/dL 6.3 - 8.2 g/dL [facility] Work Phone: [phone] Interpretation and review of laboratory results Abnormal [facility] Work Phone: [phone] Ionized CalciumOrdered By: Agusto Coelho on 06-23-2021 Interpretation and review of laboratory results Abnormal [facility] Work Phone: [phone] Ionized Ca 3.90 mg/dL Low 4.30 - 5.20 mg/dL [facility] Work Phone: [phone] pH (Bld) 7.56 [pH] High [facility] Work Phone: [phone] [facility] Work Phone: [phone] [facility] Work Phone: [phone] AND TIBCon 06-23-2021 Saturation 10 % Low 15-50 [facility] Comment on above: Performed By: #### F EIBC ####[facility] [id number] [place] [address]#### TRFN ####[id number] [place] [address] Total Iron Binding Cap. 273 ug/dL Normal 261-497 [facility] Comment on above: Performed By: #### F EIBC ####[facility] [id number] [place] [address]#### TRFN ####[facility] [place] [address] Iron, Total 27 ug/dL Low 37-170 [facility] Comment on above: Performed By: #### F EIBC ####[address] [place] [address]#### TRFN ####[facility] [place] [address] Iron and TIBCOrdered By: Jami Abdalla on 06-23-2021 Interpretation and review of laboratory results Abnormal [facility] Work Phone: [phone] [Mass/Vol] 27 ug/dL Low 37 - 170 ug/dL [facility] Work Phone: [phone] Sat 10 % Low 15 - 50 % [facility] Work Phone: [phone] TIBC 273 ug/dL 261 - 497 ug/dL [facility] Work Phone: [phone] [facility] Work Phone: [phone] [facility] Work Phone: [phone] Magnesiumon 06-23-2021 Magnesium [Mass/Vol] 1.9 mg/dL Normal 1.6-2.3 [facility] Comment on above: Performed By: #### I CA, LFT3, MG3, PHOS3, BMP3M, RBCMO, HEMDF ####[address] [place] [address] MagnesiumOrdered By: Michelle lauren on 06-23-2021 Magnesium [Mass/Vol] 1.9 mg/dL 1.6 - 2 .3 mg/dL [facility] Work Phone: No Panel InformationOrdered By: Michelle Coelho on 06-23-2021 [facility] Work Phone: [facility] Work Phone: POCT GlucoseOrdered By: Jessica Soni on 06-23-2021 Glucose [Mass/Vol] 199 mg/dL High 70 - 100 mg/dL [facility] Work Phone: Interpretation and review of laboratory results Abnormal [facility] Work Phone: [phone] [facility] Work Phone: [facility] Work Phone: Phosphoruson 06-23-2021 Phosphate [Mass/Vol] 3.4 mg/dL Normal 2.5-4.5 [facility] Comment on above: Performed By: #### I CA, LFT3, MG3, PHOS3, BMP3M, RBCMO, HEMDF ####[facility] [employer] [id number] [place], [place] PhosphorusOrdered By: Michelle pearson on 06-23-2021 Phosphate [Mass/Vol] 3.4 mg/dL 2.5 - 4 .5 mg/dL [facility] Work Phone: [phone] RBC MORPHOLOGYOrdered By: Samuel Coelho on 06-23-2021 Anisocytosis Ql (Bld) Slight [facility] Work Phone: [phone] Elliptocytes Slight [facility] Work Phone: [phone] Microcytosis Slight [facility] Work Phone: [phone] Ovalocytes Slight [facility] Work Phone: [phone] Poikilocytes Slight [facility] Work Phone: [phone] Polychromasia Slight [facility] Work Phone: [phone] RBC (Bld) [#/Vol] ABNORMAL [facility] Work Phone: [phone] [facility] Work Phone: [phone] [facility] Work Phone: RBC Morphologyon 06-23-2021 Anisocytosis Ql (Bld) Slight Normal [facility] Comment on above: Performed By: #### I CA, LFT3, MG3, PHOS3, BMP3M, RBCMO, HEMDF ####[facility] [employer] [id number] [place], [place] Elliptocytes Slight Normal [facility] Comment on above: Performed By: #### I CA, LFT3, MG3, PHOS3, BMP3M, RBCMO, HEMDF ####[facility] [employer] [id number] [place] [address] Microcytosis Slight Normal [facility] Comment on above: Performed By: #### I CA, LFT3, MG3, PHOS3, BMP3M, RBCMO, HEMDF ####[address] [place], [place] Ovalocytes Slight Normal [facility] Comment on above: Performed By: #### I CA, LFT3, MG3, PHOS3, BMP3M, RBCMO, HEMDF ####[address] [place], [place] Poikilocytosis Slight Normal [facility] Comment on above: Performed By: #### I CA, LFT3, MG3, PHOS3, BMP3M, RBCMO, HEMDF ####[address] [place], [place] Polychromasia Slight Normal [facility] Comment on above: Performed By: #### I CA, LFT3, MG3, PHOS3, BMP3M, RBCMO, HEMDF ####[address] [place], [place] RBC morphology finding Nom (Bld) ABNORMAL Normal [facility] Comment on above: Performed By: #### I CA, LFT3, MG3, PHOS3, BMP3M, RBCMO, HEMDF ####[address] [place], [place] Basic Metabolic Panelon 07-2 Calcium [Mass/Vol] 9.0 mg/dL Normal 8.4-10.4 [facility] Comment on above: Performed By: #### L FT3, HEMDF, BMP3M, MG3, ICA, PHOS3 ####[address] [place], [place] Anion gap [Moles/Vol] 7 mmol/L Normal 3-13 [facility] Comment on above: Performed By: #### L FT3, HEMDF, BMP3M, MG3, ICA, PHOS3 ####[address] [place], [place] CO2 [Moles/Vol] 30 mmol/L Normal 22-30 [facility] Comment on above: Performed By: #### L FT3, HEMDF, BMP3M, MG3, ICA, PHOS3 ####[address] [place], [place] Creatinine [Mass/Vol] 0.66 mg/dL Normal 0.52-1.25 [facility] Comment on above: Performed By: #### L FT3, HEMDF, BMP3M, MG3, ICA, PHOS3 ####[address] [place], [place] eGFR OTHER > 90.0 Normal >60 [facility] Comment on above: Result Comment: KDIG O guidelines provide the following GFR categories:Stage GFR(ml/min/1.73 m2) TermsG1 >=90 Normal or highG2 60-89 Mildly decreased*G3a 45-59 Mildly to moderately ubvcqunowC7a 30-44 Moderately to severely decreasedG4 15-29 Severely [...] L FT3, HEMDF, BMP3M, MG3, ICA, PHOS3 ####[address] [place], [place] GFR/1.73 sq M.predicted among blacks MDRD (S/P/Bld) [Vol rate/Area] mL/min/{1.73_m2} Normal >60 [facility] Comment on above: Performed By: #### L FT3, HEMDF, BMP3M, MG3, ICA, PHOS3 ####[address] [place], [place] Glucose [Mass/Vol] 147 mg/dL High 70-100 [facility] Comment on above: Performed By: #### L FT3, HEMDF, BMP3M, MG3, ICA, PHOS3 ####[address] [place], [place] Urea nitrogen [Mass/Vol] 31 mg/dL High 7-20 [facility] Comment on above: Performed By: #### L FT3, HEMDF, BMP3M, MG3, ICA, PHOS3 ####[address] [facility] [place] Potassium [Moles/Vol] 3.5 mmol/L Normal 3.5-5.1 [facility] Comment on above: Performed By: #### L FT3, HEMDF, BMP3M, MG3, ICA, PHOS3 ####[address] [place], [place] Sodium [Moles/Vol] 132 mmol/L Low 135-145 [facility] Comment on above: Performed By: #### L FT3, HEMDF, BMP3M, MG3, ICA, PHOS3 ####[address] [place], [place] Chloride [Moles/Vol] 96 mmol/L Low 98-107 [facility] Comment on above: Performed By: #### L FT3, HEMDF, BMP3M, MG3, ICA, PHOS3 ####[address] [place], [place] CR Chest Portableon 06-22-20 21 CR Chest Portable Normal [facility] Calcium,Ionizedon 06-22-2021 Ionized Ca,Measured 4.30 mg/dL Normal 4.30-5.20 [facility] Comment on above: Performed By: #### L FT3, HEMDF, BMP3M, MG3, ICA, PHOS3 ####[address] [place], [place] pH, Ionized Calcium 7.41 Normal 7.31-7.46 [facility] Comment on above: Performed By: #### L FT3, HEMDF, BMP3M, MG3, ICA, PHOS3 ####[address] [place], [place] Glucose,Bedsideon 06-22-2021 Glucose [Mass/Vol] 192 mg/dL High 70-100 [facility] Comment on above: Result Comment: Test performed by glucose meter. Results may be 10%-15% lowerthan serum/plasma values. (CLIA ID [id number]) Performed By: #### B GLU ####[address] Glucose [Mass/Vol] 141 mg/dL High 70-100 [facility] Comment on above: Result Comment: correctional medicine physician Notified;Test performed by glucose meter. Results may be 10%-15% lowerthan serum/plasma values. (CLIA ID [id number]) Performed By: #### B GLU ####[address] Hemogram w/ Autodiffon 06-22 Abs Baso Cnt 0.0 10*3/uL Normal 0.0-0.[address] [facility] Comment on above: Performed By: #### L FT3, HEMDF, BMP3M, MG3, ICA, PHOS3 ####[address] Abs Neutrophile Cnt 6.4 10*3/uL Normal 1.8-7.0 [facility] Comment on above: Performed By: #### L FT3, HEMDF, BMP3M, MG3, ICA, PHOS3 ####[address] [place], [place] Basophils/100 WBC (Bld) 0.1 % Normal 0.0-2.0 [facility] Comment on above: Performed By: #### L FT3, HEMDF, BMP3M, MG3, ICA, PHOS3 ####[address] Eosinophils (Bld) [#/Vol] 0.4 10*3/uL Normal 0.0-0.5 [facility] Comment on above: Performed By: #### L FT3, HEMDF, BMP3M, MG3, ICA, PHOS3 ####[address] [place] Eosinophils/100 WBC (Bld) 4.3 % Normal 1.0-6.0 [facility] Comment on above: Performed By: #### L FT3, HEMDF, BMP3M, MG3, ICA, PHOS3 ####[address] [place], [place] Erythrocyte distribution width (RBC) [Ratio] 23.2 % High 11.5-14.5 [facility] Comment on above: Performed By: #### L FT3, HEMDF, BMP3M, MG3, ICA, PHOS3 ####[address] Granulocytes/100 WBC (Bld) 74.3 % Normal 40.0-80.0 [facility] Comment on above: Performed By: #### L FT3, HEMDF, BMP3M, MG3, ICA, PHOS3 ####[address] Hematocrit (Bld) [Volume fraction] 34.7 % Low 35.0-47.0 [facility] Comment on above: Performed By: #### L FT3, HEMDF, BMP3M, MG3, ICA, PHOS3 ####[address] [place], [place] Hemoglobin (Bld) [Mass/Vol] 10.8 g/dL Low 11.7-16.0 [facility] Comment on above: Performed By: #### L FT3, HEMDF, BMP3M, MG3, ICA, PHOS3 ####[address] Lymphocytes (Bld) [#/Vol] 0.8 10*3/uL Low 1.0-4.3 [facility] Comment on above: Performed By: #### L FT3, HEMDF, BMP3M, MG3, ICA, PHOS3 ####[address] Lymphocytes/100 WBC (Bld) 9.0 % Low 20.0-40.0 [facility] Comment on above: Performed By: #### L FT3, HEMDF, BMP3M, MG3, ICA, PHOS3 ####[address] MCH (RBC) [Entitic mass] 23.5 pg Low 26.0-34.0 [facility] Comment on above: Performed By: #### L FT3, HEMDF, BMP3M, MG3, ICA, PHOS3 ####[address] MCHC 31.2 % Low 32.0-36.0 [facility] Comment on above: Performed By: #### L FT3, HEMDF, BMP3M, MG3, ICA, PHOS3 ####[address] MCV (RBC) [Entitic vol] 75.5 fL Low 79.0-98.0 [facility] Comment on above: Performed By: #### L FT3, HEMDF, BMP3M, MG3, ICA, PHOS3 ####[address] Monocytes (Bld) [#/Vol] 1.1 10*3/uL High 0.0-0.8 [facility] Comment on above: Performed By: #### L FT3, HEMDF, BMP3M, MG3, ICA, PHOS3 ####[address] [place], [place] Monocytes/100 WBC (Bld) 12.3 % High 2.0-10.0 [facility] Comment on above: Performed By: #### L FT3, HEMDF, BMP3M, MG3, ICA, PHOS3 ####[address] Platelet mean volume (Bld) [Entitic vol] 8.9 fL Normal 7.4-10.4 [facility] Comment on above: Performed By: #### L FT3, HEMDF, BMP3M, MG3, ICA, PHOS3 ####[address] [place], [place] Platelets (Bld) [#/Vol] 123 10*3/uL Low 140-440 [facility] Comment on above: Performed By: #### L FT3, HEMDF, BMP3M, MG3, ICA, PHOS3 ####[address] [place], [place] RBC (Bld) [#/Vol] 4.60 10*6/uL Normal 3.80-5.20 [facility] Comment on above: Performed By: #### L FT3, HEMDF, BMP3M, MG3, ICA, PHOS3 ####[address] [place] WBC (Bld) [#/Vol] 8.7 10*3/uL Normal 3.6-10.7 [facility] Comment on above: Performed By: #### L FT3, HEMDF, BMP3M, MG3, ICA, PHOS3 ####[address] [place], [place] Hepatic Functionon 1 ALT [Catalytic activity/Vol] 79 U/L High 0-34 [facility] Comment on above: Result Comment: The ALT test is performed by an updated assay method.Please note that the reference intervals have beenchanged and are now sex specific. Performed By: #### L FT3, HEMDF, BMP3M, MG3, ICA, PHOS3 ####[address] [place], [place] ALP [Catalytic activity/Vol] 127 U/L High 38-126 [facility] Comment on above: Performed By: #### L FT3, HEMDF, BMP3M, MG3, ICA, PHOS3 ####[address] [place] AST [Catalytic activity/Vol] 62 U/L High 15-46 [facility] Comment on above: Performed By: #### L FT3, HEMDF, BMP3M, MG3, ICA, PHOS3 ####[address] [place] Bilirubin [Mass/Vol] 0.8 mg/dL Normal 0.2-1.3 [facility] Comment on above: Performed By: #### L FT3, HEMDF, BMP3M, MG3, ICA, PHOS3 ####[address] [place], [place] Bilirubin.indirect [Mass/Vol] 0.0 mg/dL Normal 0.0-0.3 [facility] Comment on above: Performed By: #### L FT3, HEMDF, BMP3M, MG3, ICA, PHOS3 ####[address] [place], [place] Protein [Mass/Vol] 6.9 g/dL Normal 6.3-8.2 [facility] Comment on above: Performed By: #### L FT3, HEMDF, BMP3M, MG3, ICA, PHOS3 ####[address] [place], [place] Albumin [Mass/Vol] 3.1 g/dL Low 3.5-5.0 [facility] Comment on above: Performed By: #### L FT3, HEMDF, BMP3M, MG3, ICA, PHOS3 ####[address] [place], [place] Magnesiumon 06-22-2021 Magnesium [Mass/Vol] 2.1 mg/dL Normal 1.6-2.3 [facility] Comment on above: Performed By: #### L FT3, HEMDF, BMP3M, MG3, ICA, PHOS3 ####[address] [place], [place] POCT GlucoseOrdered By: Jessica Soni on 06-22-2021 Glucose [Mass/Vol] 192 mg/dL High 70 - 100 mg/dL [facility] Work Phone: Interpretation and review of laboratory results Abnormal [facility] Work Phone: [facility] Work Phone: [facility] Work Phone: Phosphoruson 06-22-2021 Phosphate [Mass/Vol] 3.5 mg/dL Normal 2.5-4.5 [facility] Comment on above: Performed By: #### L FT3, HEMDF, BMP3M, MG3, ICA, PHOS3 ####[facility] [place] [place] [address] XR CHEST PORTABLEOrdered By: Checo Kirk on 06-22-2021 [facility] Work Phone: [phone] [facility] Work Phone: [phone] [facility] Work Phone: [phone] Basic Metabolic Panelon 05-31 Anion gap [Moles/Vol] 5 mmol/L Normal 3-13 [facility] Comment on above: Performed By: #### M G3, HEMDF, FERR3, PHOS3, ICA, LDH3, BMP3M, CRP2, LFT3, DDI2 ####[address] [place] [address] Calcium [Mass/Vol] 8.3 mg/dL Low 8.4-10.4 [facility] Comment on above: Performed By: #### M G3, HEMDF, FERR3, PHOS3, ICA, LDH3, BMP3M, CRP2, LFT3, DDI2 ####[address] [place] [address] CO2 [Moles/Vol] 31 mmol/L High 22-30 [facility] Comment on above: Performed By: #### M G3, HEMDF, FERR3, PHOS3, ICA, LDH3, BMP3M, CRP2, LFT3, DDI2 ####[address] [place] [address] Glucose [Mass/Vol] 139 mg/dL High 70-100 [facility] Comment on above: Performed By: #### M G3, HEMDF, FERR3, PHOS3, ICA, LDH3, BMP3M, CRP2, LFT3, DDI2 ####[address] [place] [address] Urea nitrogen [Mass/Vol] 32 mg/dL High 7-20 [facility] Comment on above: Performed By: #### M G3, HEMDF, FERR3, PHOS3, ICA, LDH3, BMP3M, CRP2, LFT3, DDI2 ####[address] [place], [place] Creatinine [Mass/Vol] 0.52 mg/dL Normal 0.52-1.25 [facility] Comment on above: Performed By: #### M G3, HEMDF, FERR3, PHOS3, ICA, LDH3, BMP3M, CRP2, LFT3, DDI2 ####[address] [place], [place] eGFR OTHER > 90.0 Normal >60 [facility] Comment on above: Result Comment: KDIG O guidelines provide the following GFR categories:Stage GFR(ml/min/1.73 m2) TermsG1 >=90 Normal or highG2 60-89 Mildly decreased*G3a 45-59 Mildly to moderately wtulkhwidD3g 30-44 Moderately to severely decreasedG4 15-29 Severely [...] PHOS3, ICA, LDH3, BMP3M, CRP2, LFT3, DDI2 ####[address] [place], [place] GFR/1.73 sq M.predicted among blacks MDRD (S/P/Bld) [Vol rate/Area] mL/min/{1.73_m2} Normal >60 [facility] Comment on above: Performed By: #### M G3, HEMDF, FERR3, PHOS3, ICA, LDH3, BMP3M, CRP2, LFT3, DDI2 ####[address] [address] Potassium [Moles/Vol] 4.1 mmol/L Normal 3.5-5.1 [facility] Comment on above: Result Comment: Slig htly hemolysed, interpret with caution. Performed By: #### M G3, HEMDF, FERR3, PHOS3, ICA, LDH3, BMP3M, CRP2, LFT3, DDI2 ####[address] [facility], [place] Sodium [Moles/Vol] 134 mmol/L Low 135-145 [facility] Comment on above: Performed By: #### M G3, HEMDF, FERR3, PHOS3, ICA, LDH3, BMP3M, CRP2, LFT3, DDI2 ####[address] [place], [place] Chloride [Moles/Vol] 99 mmol/L Normal 98-107 [facility] Comment on above: Performed By: #### M G3, HEMDF, FERR3, PHOS3, ICA, LDH3, BMP3M, CRP2, LFT3, DDI2 ####[address] [place], [place] C-Reactive Proteinon 021 CRP [Mass/Vol] 61.5 mg/L High 0.0-6.0 [facility] Comment on above: Result Comment: . Performed By: #### M G3, HEMDF, FERR3, PHOS3, ICA, LDH3, BMP3M, CRP2, LFT3, DDI2 ####[address] [facility] [place] [address] Calcium,Ionizedon 06-21-2021 Ionized Ca,Measured 3.80 mg/dL Low 4.30-5.20 [facility] Comment on above: Performed By: #### M G3, HEMDF, FERR3, PHOS3, ICA, LDH3, BMP3M, CRP2, LFT3, DDI2 ####[address] [place] [address] pH, Ionized Calcium 7.46 Normal 7.31-7.46 [facility] Comment on above: Performed By: #### M G3, HEMDF, FERR3, PHOS3, ICA, LDH3, BMP3M, CRP2, LFT3, DDI2 ####[facility] [employer] [place] [address] D-Dimer, Innovanceon 06-21-2 021 D-Dimer, Innovance 11.91 mg/L High <0.19-0.50 [facility] Comment on above: Result Comment: Inno carrington D-Dimer values of <0.50 mg/L FEU can be used incombination with a pre-test probability model (e.g. Well's)to exclude pulmonary embolism (PE) disease, as well as jodi in the diagnosis of deep vein thrombosis (DVT). Performed By: #### M G3, HEMDF, FERR3, PHOS3, ICA, LDH3, BMP3M, CRP2, LFT3, DDI2 ####[facility] [employer] [address] Ferritinon 06-21-2021 Ferritin [Mass/Vol] 358 ng/mL High 8-252 [facility] Comment on above: Performed By: #### M G3, HEMDF, FERR3, PHOS3, ICA, LDH3, BMP3M, CRP2, LFT3, DDI2 ####[employer] [place] [address] Glucose,Bedsideon 06-21-2021 Glucose [Mass/Vol] 155 mg/dL High 70-100 [facility] Comment on above: Result Comment: Test performed by glucose meter. Results may be 10%-15% lowerthan serum/plasma values. (CLIA ID [id number]) Performed By: #### B GLU ####[email or web address] [address] Glucose [Mass/Vol] 134 mg/dL High 70-100 [facility] Comment on above: Result Comment: Test performed by glucose meter. Results may be 10%-15% lowerthan serum/plasma values. (CLIA ID [id number]) Performed By: #### B GLU ####[address] Hemogram w/ Autodiffon 06-21 Abs Baso Cnt 0.0 10*3/uL Normal 0.0-0.2 [facility] Comment on above: Performed By: #### M G3, HEMDF, FERR3, PHOS3, ICA, LDH3, BMP3M, CRP2, LFT3, DDI2 ####[address] Abs Neutrophile Cnt 10.0 10*3/uL High 1.8-7.0 [facility] Comment on above: Performed By: #### M G3, HEMDF, FERR3, PHOS3, ICA, LDH3, BMP3M, CRP2, LFT3, DDI2 ####[address] Basophils/100 WBC (Bld) 0.3 % Normal 0.0-2.0 [facility] Comment on above: Performed By: #### M G3, HEMDF, FERR3, PHOS3, ICA, LDH3, BMP3M, CRP2, LFT3, DDI2 ####[address] Eosinophils (Bld) [#/Vol] 0.2 10*3/uL Normal 0.0-0.5 [facility] Comment on above: Performed By: #### M G3, HEMDF, FERR3, PHOS3, ICA, LDH3, BMP3M, CRP2, LFT3, DDI2 ####[address] Eosinophils/100 WBC (Bld) 1.8 % Normal 1.0-6.0 [facility] Comment on above: Performed By: #### M G3, HEMDF, FERR3, PHOS3, ICA, LDH3, BMP3M, CRP2, LFT3, DDI2 ####[address] Erythrocyte distribution width (RBC) [Ratio] 23.4 % High 11.5-14.5 [facility] Comment on above: Performed By: #### M G3, HEMDF, FERR3, PHOS3, ICA, LDH3, BMP3M, CRP2, LFT3, DDI2 ####[address] Granulocytes/100 WBC (Bld) 82.1 % High 40.0-80.0 [facility] Comment on above: Performed By: #### M G3, HEMDF, FERR3, PHOS3, ICA, LDH3, BMP3M, CRP2, LFT3, DDI2 ####[address] Hematocrit (Bld) [Volume fraction] 32.0 % Low 35.0-47.0 [facility] Comment on above: Performed By: #### M G3, HEMDF, FERR3, PHOS3, ICA, LDH3, BMP3M, CRP2, LFT3, DDI2 ####[address] Hemoglobin (Bld) [Mass/Vol] 10.2 g/dL Low 11.7-16.0 [facility] Comment on above: Performed By: #### M G3, HEMDF, FERR3, PHOS3, ICA, LDH3, BMP3M, CRP2, LFT3, DDI2 ####[address] Lymphocytes (Bld) [#/Vol] 0.8 10*3/uL Low 1.0-4.3 [facility] Comment on above: Performed By: #### M G3, HEMDF, FERR3, PHOS3, ICA, LDH3, BMP3M, CRP2, LFT3, DDI2 ####[address] Lymphocytes/100 WBC (Bld) 6.4 % Low 20.0-40.0 [facility] Comment on above: Performed By: #### M G3, HEMDF, FERR3, PHOS3, ICA, LDH3, BMP3M, CRP2, LFT3, DDI2 ####[address] MCH (RBC) [Entitic mass] 23.5 pg Low 26.0-34.0 [facility] Comment on above: Performed By: #### M G3, HEMDF, FERR3, PHOS3, ICA, LDH3, BMP3M, CRP2, LFT3, DDI2 ####[id number] [place], [place] MCHC 31.7 % Low 32.0-36.0 [facility] Comment on above: Performed By: #### M G3, HEMDF, FERR3, PHOS3, ICA, LDH3, BMP3M, CRP2, LFT3, DDI2 ####[id number] [place], [place] MCV (RBC) [Entitic vol] 74.2 fL Low 79.0-98.0 [facility] Comment on above: Performed By: #### M G3, HEMDF, FERR3, PHOS3, ICA, LDH3, BMP3M, CRP2, LFT3, DDI2 ####[address] Monocytes (Bld) [#/Vol] 1.2 10*3/uL High 0.0-0.8 [facility] Comment on above: Performed By: #### M G3, HEMDF, FERR3, PHOS3, ICA, LDH3, BMP3M, CRP2, LFT3, DDI2 ####[id number] [place], [place] Monocytes/100 WBC (Bld) 9.4 % Normal 2.0-10.0 [facility] Comment on above: Performed By: #### M G3, HEMDF, FERR3, PHOS3, ICA, LDH3, BMP3M, CRP2, LFT3, DDI2 ####[address] Platelet mean volume (Bld) [Entitic vol] 9.4 fL Normal 7.4-10.4 [facility] Comment on above: Performed By: #### M G3, HEMDF, FERR3, PHOS3, ICA, LDH3, BMP3M, CRP2, LFT3, DDI2 ####[id number] [place], [place] Platelets (Bld) [#/Vol] 125 10*3/uL Low 140-440 [facility] Comment on above: Performed By: #### M G3, HEMDF, FERR3, PHOS3, ICA, LDH3, BMP3M, CRP2, LFT3, DDI2 ####[id number] [place], [place] RBC (Bld) [#/Vol] 4.32 10*6/uL Normal 3.80-5.20 [facility] Comment on above: Performed By: #### M G3, HEMDF, FERR3, PHOS3, ICA, LDH3, BMP3M, CRP2, LFT3, DDI2 ####[id number] [place], [place] WBC (Bld) [#/Vol] 12.2 10*3/uL High 3.6-10.7 [facility] Comment on above: Performed By: #### M G3, HEMDF, FERR3, PHOS3, ICA, LDH3, BMP3M, CRP2, LFT3, DDI2 ####[id number] [place], [place] Hepatic Functionon 1 ALP [Catalytic activity/Vol] 149 U/L High 38-126 [facility] Comment on above: Result Comment: Slig htly hemolysed, interpret with caution. Performed By: #### M G3, HEMDF, FERR3, PHOS3, ICA, LDH3, BMP3M, CRP2, LFT3, DDI2 ####[id number] [place], [place] ALT [Catalytic activity/Vol] 71 U/L High 0-34 [facility] Comment on above: Result Comment: The ALT test is performed by an updated assay method.Please note that the reference intervals have beenchanged and are now sex specific. Performed By: #### M G3, HEMDF, FERR3, PHOS3, ICA, LDH3, BMP3M, CRP2, LFT3, DDI2 ####[id number] [place], [place] AST [Catalytic activity/Vol] 77 U/L High 15-46 [facility] Comment on above: Result Comment: Slig htly hemolysed, interpret with caution. Performed By: #### M G3, HEMDF, FERR3, PHOS3, ICA, LDH3, BMP3M, CRP2, LFT3, DDI2 ####[address] [place], [place] Bilirubin [Mass/Vol] 1.0 mg/dL Normal 0.2-1.3 [facility] Comment on above: Performed By: #### M G3, HEMDF, FERR3, PHOS3, ICA, LDH3, BMP3M, CRP2, LFT3, DDI2 ####[address] [place], [place] Protein [Mass/Vol] 6.5 g/dL Normal 6.3-8.2 [facility] Comment on above: Performed By: #### M G3, HEMDF, FERR3, PHOS3, ICA, LDH3, BMP3M, CRP2, LFT3, DDI2 ####[address] [place], [place] Bilirubin.indirect [Mass/Vol] 0.0 mg/dL Normal 0.0-0.3 [facility] Comment on above: Performed By: #### M G3, HEMDF, FERR3, PHOS3, ICA, LDH3, BMP3M, CRP2, LFT3, DDI2 ####[address] [place], [place] Albumin [Mass/Vol] 3.0 g/dL Low 3.5-5.0 [facility] Comment on above: Performed By: #### M G3, HEMDF, FERR3, PHOS3, ICA, LDH3, BMP3M, CRP2, LFT3, DDI2 ####[address] [place], [place] LDHon 06-21-2021 LDH 640 U/L High 120-246 [facility] Comment on above: Result Comment: Slig htly hemolysed, interpret with caution. Performed By: #### M G3, HEMDF, FERR3, PHOS3, ICA, LDH3, BMP3M, CRP2, LFT3, DDI2 ####[address] [place] [address] Magnesiumon 06-21-2021 Magnesium [Mass/Vol] 2.2 mg/dL Normal 1.6-2.3 [facility] Comment on above: Result Comment: Slig htly hemolysed, interpret with caution. Performed By: #### M G3, HEMDF, FERR3, PHOS3, ICA, LDH3, BMP3M, CRP2, LFT3, DDI2 ####[address] [place], [place] Phosphoruson 06-21-2021 Phosphate [Mass/Vol] 3.4 mg/dL Normal 2.5-4.5 [facility] Comment on above: Result Comment: Slig htly hemolysed, interpret with caution. Performed By: #### M G3, HEMDF, FERR3, PHOS3, ICA, LDH3, BMP3M, CRP2, LFT3, DDI2 ####[address] [place], [place] Basic Metabolic Panelon 05-31 Anion gap [Moles/Vol] 3 mmol/L Normal 3-13 [facility] Comment on above: Performed By: #### L DH3, CRP2, BMP3M, MG3, ICA, PHOS3, FERR3, HEMDF, LFT3, DDI2 ####[address] [place], [place] Calcium [Mass/Vol] 8.3 mg/dL Low 8.4-10.4 [facility] Comment on above: Performed By: #### L DH3, CRP2, BMP3M, MG3, ICA, PHOS3, FERR3, HEMDF, LFT3, DDI2 ####[address] [place], [place] CO2 [Moles/Vol] 31 mmol/L High 22-30 [facility] Comment on above: Performed By: #### L DH3, CRP2, BMP3M, MG3, ICA, PHOS3, FERR3, HEMDF, LFT3, DDI2 ####[address] [place], [place] Glucose [Mass/Vol] 137 mg/dL High 70-100 [facility] Comment on above: Performed By: #### L DH3, CRP2, BMP3M, MG3, ICA, PHOS3, FERR3, HEMDF, LFT3, DDI2 ####[address] [place], [place] Urea nitrogen [Mass/Vol] 37 mg/dL High 7-20 [facility] Comment on above: Performed By: #### L DH3, CRP2, BMP3M, MG3, ICA, PHOS3, FERR3, HEMDF, LFT3, DDI2 ####[address] [place], [place] Creatinine [Mass/Vol] 0.49 mg/dL Low 0.52-1.25 [facility] Comment on above: Performed By: #### L DH3, CRP2, BMP3M, MG3, ICA, PHOS3, FERR3, HEMDF, LFT3, DDI2 ####[address] [place], [place] eGFR OTHER > 90.0 Normal >60 [facility] Comment on above: Result Comment: KDIG O guidelines provide the following GFR categories:Stage GFR(ml/min/1.73 m2) TermsG1 >=90 Normal or highG2 60-89 Mildly decreased*G3a 45-59 Mildly to moderately [id number] 30-44 Moderately to severely decreasedG4 15-29 Severely [...] MG3, ICA, PHOS3, FERR3, HEMDF, LFT3, DDI2 ####[id number] [place], [place] GFR/1.73 sq M.predicted among blacks MDRD (S/P/Bld) [Vol rate/Area] mL/min/{1.73_m2} Normal >60 [facility] Comment on above: Performed By: #### L DH3, CRP2, BMP3M, MG3, ICA, PHOS3, FERR3, HEMDF, LFT3, DDI2 ####[address] Potassium [Moles/Vol] 3.3 mmol/L Low 3.5-5.1 [facility] Comment on above: Performed By: #### L DH3, CRP2, BMP3M, MG3, ICA, PHOS3, FERR3, HEMDF, LFT3, DDI2 ####[address] [place], [place] Chloride [Moles/Vol] 101 mmol/L Normal 98-107 [facility] Comment on above: Performed By: #### L DH3, CRP2, BMP3M, MG3, ICA, PHOS3, FERR3, HEMDF, LFT3, DDI2 ####[address] Sodium [Moles/Vol] 135 mmol/L Normal 135-145 [facility] Comment on above: Performed By: #### L DH3, CRP2, BMP3M, MG3, ICA, PHOS3, FERR3, HEMDF, LFT3, DDI2 ####[address] C-Reactive Proteinon 021 CRP [Mass/Vol] 193.5 mg/L High 0.0-6.0 [facility] Comment on above: Result Comment: . Performed By: #### L DH3, CRP2, BMP3M, MG3, ICA, PHOS3, FERR3, HEMDF, LFT3, DDI2 ####[facility] [employer] [id number] [place] [address] Calcium,Ionizedon 06-20-2021 Ionized Ca,Measured 3.80 mg/dL Low 4.30-5.20 [facility] Comment on above: Performed By: #### L DH3, CRP2, BMP3M, MG3, ICA, PHOS3, FERR3, HEMDF, LFT3, DDI2 ####[facility] [employer] [id number] [place] [address] pH, Ionized Calcium 7.50 High 7.31-7.46 [facility] Comment on above: Performed By: #### L DH3, CRP2, BMP3M, MG3, ICA, PHOS3, FERR3, HEMDF, LFT3, DDI2 ####[facility] [employer] [id number] [place] [address] D-Dimer, Innovanceon 021 D-Dimer, Innovance 17.00 mg/L High <0.19-0.50 [facility] Comment on above: Result Comment: Inno carrington D-Dimer values of <0.50 mg/L FEU can be used incombination with a pre-test probability model (e.g. Well's)to exclude pulmonary embolism (PE) disease, as well as jodi in the diagnosis of deep vein thrombosis (DVT). Performed By: #### L DH3, CRP2, BMP3M, MG3, ICA, PHOS3, FERR3, HEMDF, LFT3, DDI2 ####[facility] [employer] [id number] [place] [address] Ferritinon 06-20-2021 Ferritin [Mass/Vol] 390 ng/mL High 8-252 [facility] Comment on above: Performed By: #### L DH3, CRP2, BMP3M, MG3, ICA, PHOS3, FERR3, HEMDF, LFT3, DDI2 ####[facility] [employer] [id number] [place] [address] Glucose,Bedsideon 06-20-2021 Glucose [Mass/Vol] 143 mg/dL High 70-100 [facility] Comment on above: Result Comment: Test performed by glucose meter. Results may be 10%-15% lowerthan serum/plasma values. (CLIA ID [id number]) Performed By: #### B GLU ####[id number] [place] [address] Glucose [Mass/Vol] 153 mg/dL High [address] [facility] Comment on above: Result Comment: Test performed by glucose meter. Results may be 10%-15% lowerthan serum/plasma values. (CLIA ID [id number]) Performed By: #### B GLU ####[id number] [place] [address] Glucose [Mass/Vol] 145 mg/dL High [address] [place] [address] Comment on above: Result Comment: Test performed by glucose meter. Results may be 10%-15% lowerthan serum/plasma values. (CLIA ID [id number]) Performed By: #### B GLU ####[id number] [place] [address] Glucose [Mass/Vol] 162 mg/dL [address] Comment on above: Result Comment: Test performed by glucose meter. Results may be 10%-15% lowerthan serum/plasma values. (CLIA ID [id number]) Performed By: #### B GLU ####[employer] [id number] [place] [address] Glucose [Mass/Vol] 139 mg/dL High [address] Comment on above: Result Comment: Test performed by glucose meter. Results may be 10%-15% lowerthan serum/plasma values. (CLIA ID [id number]) Performed By: #### B GLU ####[employer] [id number] [place] [address] Hemogram w/ Autodiffon 06-20 Abs Baso Cnt 0.0 10*3/uL Normal 0.0-0.2 [facility] Comment on above: Performed By: #### L DH3, CRP2, BMP3M, MG3, ICA, PHOS3, FERR3, HEMDF, LFT3, DDI2 ####[address] Abs Neutrophile Cnt 9.8 10*3/uL High 1.8-7.0 [facility] Comment on above: Performed By: #### L DH3, CRP2, BMP3M, MG3, ICA, PHOS3, FERR3, HEMDF, LFT3, DDI2 ####[address] Basophils/100 WBC (Bld) 0.1 % Normal 0.0-2.0 [facility] Comment on above: Performed By: #### L DH3, CRP2, BMP3M, MG3, ICA, PHOS3, FERR3, HEMDF, LFT3, DDI2 ####[address] Eosinophils (Bld) [#/Vol] 0.3 10*3/uL Normal 0.0-0.5 [facility] Comment on above: Performed By: #### L DH3, CRP2, BMP3M, MG3, ICA, PHOS3, FERR3, HEMDF, LFT3, DDI2 ####[address] Eosinophils/100 WBC (Bld) 2.3 % Normal 1.0-6.0 [facility] Comment on above: Performed By: #### L DH3, CRP2, BMP3M, MG3, ICA, PHOS3, FERR3, HEMDF, LFT3, DDI2 ####[address] Erythrocyte distribution width (RBC) [Ratio] 22.9 % High 11.5-14.5 [facility] Comment on above: Performed By: #### L DH3, CRP2, BMP3M, MG3, ICA, PHOS3, FERR3, HEMDF, LFT3, DDI2 ####[address] Granulocytes/100 WBC (Bld) 82.9 % High 40.0-80.0 [facility] Comment on above: Performed By: #### L DH3, CRP2, BMP3M, MG3, ICA, PHOS3, FERR3, HEMDF, LFT3, DDI2 ####[address] Hematocrit (Bld) [Volume fraction] 32.9 % Low 35.0-47.0 [facility] Comment on above: Performed By: #### L DH3, CRP2, BMP3M, MG3, ICA, PHOS3, FERR3, HEMDF, LFT3, DDI2 ####[address] Hemoglobin (Bld) [Mass/Vol] 10.4 g/dL Low 11.7-16.0 [facility] Comment on above: Performed By: #### L DH3, CRP2, BMP3M, MG3, ICA, PHOS3, FERR3, HEMDF, LFT3, DDI2 ####[address] Lymphocytes (Bld) [#/Vol] 0.8 10*3/uL Low 1.0-4.3 [facility] Comment on above: Performed By: #### L DH3, CRP2, BMP3M, MG3, ICA, PHOS3, FERR3, HEMDF, LFT3, DDI2 ####[address] Lymphocytes/100 WBC (Bld) 7.0 % Low 20.0-40.0 [facility] Comment on above: Performed By: #### L DH3, CRP2, BMP3M, MG3, ICA, PHOS3, FERR3, HEMDF, LFT3, DDI2 ####[address] MCH (RBC) [Entitic mass] 23.4 pg Low 26.0-34.0 [facility] Comment on above: Performed By: #### L DH3, CRP2, BMP3M, MG3, ICA, PHOS3, FERR3, HEMDF, LFT3, DDI2 ####[id number] [place], [place] MCHC 31.5 % Low 32.0-36.0 [facility] Comment on above: Performed By: #### L DH3, CRP2, BMP3M, MG3, ICA, PHOS3, FERR3, HEMDF, LFT3, DDI2 ####[address] [place], [place] MCV (RBC) [Entitic vol] 74.3 fL Low 79.0-98.0 [facility] Comment on above: Performed By: #### L DH3, CRP2, BMP3M, MG3, ICA, PHOS3, FERR3, HEMDF, LFT3, DDI2 ####[address] [place], [place] Monocytes (Bld) [#/Vol] 0.9 10*3/uL High 0.0-0.8 [facility] Comment on above: Performed By: #### L DH3, CRP2, BMP3M, MG3, ICA, PHOS3, FERR3, HEMDF, LFT3, DDI2 ####[address] [place], [place] Monocytes/100 WBC (Bld) 7.7 % Normal 2.0-10.0 [facility] Comment on above: Performed By: #### L DH3, CRP2, BMP3M, MG3, ICA, PHOS3, FERR3, HEMDF, LFT3, DDI2 ####[address] Platelet mean volume (Bld) [Entitic vol] 9.4 fL Normal 7.4-10.4 [facility] Comment on above: Performed By: #### L DH3, CRP2, BMP3M, MG3, ICA, PHOS3, FERR3, HEMDF, LFT3, DDI2 ####[address] Platelets (Bld) [#/Vol] 112 10*3/uL Low 140-440 [facility] Comment on above: Performed By: #### L DH3, CRP2, BMP3M, MG3, ICA, PHOS3, FERR3, HEMDF, LFT3, DDI2 ####[address] [place], [place] RBC (Bld) [#/Vol] 4.43 10*6/uL Normal 3.80-5.20 [facility] Comment on above: Performed By: #### L DH3, CRP2, BMP3M, MG3, ICA, PHOS3, FERR3, HEMDF, LFT3, DDI2 ####[address] [place], [place] WBC (Bld) [#/Vol] 11.9 10*3/uL High 3.6-10.7 [facility] Comment on above: Performed By: #### L DH3, CRP2, BMP3M, MG3, ICA, PHOS3, FERR3, HEMDF, LFT3, DDI2 ####[address] Hepatic Functionon 1 ALP [Catalytic activity/Vol] 101 U/L Normal 38-126 [facility] Comment on above: Performed By: #### L DH3, CRP2, BMP3M, MG3, ICA, PHOS3, FERR3, HEMDF, LFT3, DDI2 ####[address] ALT [Catalytic activity/Vol] 69 U/L High 0-34 [facility] Comment on above: Result Comment: The ALT test is performed by an updated assay method.Please note that the reference intervals have beenchanged and are now sex specific. Performed By: #### L DH3, CRP2, BMP3M, MG3, ICA, PHOS3, FERR3, HEMDF, LFT3, DDI2 ####[address] AST [Catalytic activity/Vol] 52 U/L High 15-46 [facility] Comment on above: Performed By: #### L DH3, CRP2, BMP3M, MG3, ICA, PHOS3, FERR3, HEMDF, LFT3, DDI2 ####[address] Bilirubin [Mass/Vol] 1.0 mg/dL Normal 0.2-1.3 [facility] Comment on above: Performed By: #### L DH3, CRP2, BMP3M, MG3, ICA, PHOS3, FERR3, HEMDF, LFT3, DDI2 ####[address] Bilirubin.indirect [Mass/Vol] 0.0 mg/dL Normal 0.0-0.3 [facility] Comment on above: Performed By: #### L DH3, CRP2, BMP3M, MG3, ICA, PHOS3, FERR3, HEMDF, LFT3, DDI2 ####[address] Protein [Mass/Vol] 6.2 g/dL Low 6.3-8.2 [facility] Comment on above: Performed By: #### L DH3, CRP2, BMP3M, MG3, ICA, PHOS3, FERR3, HEMDF, LFT3, DDI2 ####[address] Albumin [Mass/Vol] 2.9 g/dL Low 3.5-5.0 [facility] Comment on above: Performed By: #### L DH3, CRP2, BMP3M, MG3, ICA, PHOS3, FERR3, HEMDF, LFT3, DDI2 ####[address] LDHon 06-20-2021 LDH 328 U/L High 120-246 [facility] Comment on above: Performed By: #### L DH3, CRP2, BMP3M, MG3, ICA, PHOS3, FERR3, HEMDF, LFT3, DDI2 ####[id number] [place], [place] Magnesiumon 06-20-2021 Magnesium [Mass/Vol] 2.1 mg/dL Normal 1.6-2.3 [facility] Comment on above: Performed By: #### L DH3, CRP2, BMP3M, MG3, ICA, PHOS3, FERR3, HEMDF, LFT3, DDI2 ####[address] Phosphoruson 06-20-2021 Phosphate [Mass/Vol] 3.0 mg/dL Normal 2.5-4.5 [facility] Comment on above: Performed By: #### L DH3, CRP2, BMP3M, MG3, ICA, PHOS3, FERR3, HEMDF, LFT3, DDI2 ####[address] Arterial Blood Gaseson 06-19 CO2 [Moles/Vol] 34.0 mmol/L High 23.0-27.0 [facility] Comment on above: Performed By: #### H EMDF, FERR3, LFT3, ABG, ICA, LDH3, DDI2, CRP2, MG3, PHOS3, BMP3M ####[address] HCO3 (Bld) [Moles/Vol] 32.7 mmol/L High 21.0-25.0 [facility] Comment on above: Performed By: #### H EMDF, FERR3, LFT3, ABG, ICA, LDH3, DDI2, CRP2, MG3, PHOS3, BMP3M ####[address] Hemoglobin (Bld) [Mass/Vol] 11.7 g/dL Normal ScreenOnly [facility] Comment on above: Performed By: #### H EMDF, FERR3, LFT3, ABG, ICA, LDH3, DDI2, CRP2, MG3, PHOS3, BMP3M ####[address] Oxygen (Bld) [Partial pressure] 53.7 mm[Hg] Low 80.0-100.0 [facility] Comment on above: Performed By: #### H EMDF, FERR3, LFT3, ABG, ICA, LDH3, DDI2, CRP2, MG3, PHOS3, BMP3M ####[address] Oxygen saturation in Blood 87.9 % Low 95.0-100.0 [facility] Comment on above: Performed By: #### H EMDF, FERR3, LFT3, ABG, ICA, LDH3, DDI2, CRP2, MG3, PHOS3, BMP3M ####[address] pCO2 41.3 mm[Hg] Normal 35.0-45.0 [facility] Comment on above: Performed By: #### H EMDF, FERR3, LFT3, ABG, ICA, LDH3, DDI2, CRP2, MG3, PHOS3, BMP3M ####[address] pH 7.517 High 7.350-7.450 [facility] Comment on above: Performed By: #### H EMDF, FERR3, LFT3, ABG, ICA, LDH3, DDI2, CRP2, MG3, PHOS3, BMP3M ####[address] Std Base Excess 9.0 mmol/L High -3.0-3.0 [facility] Comment on above: Performed By: #### H EMDF, FERR3, LFT3, ABG, ICA, LDH3, DDI2, CRP2, MG3, PHOS3, BMP3M ####[address] FIO2 30% Normal [facility] Comment on above: Performed By: #### H EMDF, FERR3, LFT3, ABG, ICA, LDH3, DDI2, CRP2, MG3, PHOS3, BMP3M ####[address] Basic Metabolic Panelon 07-2 Calcium [Mass/Vol] 8.4 mg/dL Normal 8.4-10.4 [facility] Comment on above: Performed By: #### H EMDF, FERR3, LFT3, ABG, ICA, LDH3, DDI2, CRP2, MG3, PHOS3, BMP3M ####[id number] [place], [place] Anion gap [Moles/Vol] 4 mmol/L Normal 3-13 [facility] Comment on above: Performed By: #### H EMDF, FERR3, LFT3, ABG, ICA, LDH3, DDI2, CRP2, MG3, PHOS3, BMP3M ####[address] CO2 [Moles/Vol] 33 mmol/L High 22-30 [facility] Comment on above: Performed By: #### H EMDF, FERR3, LFT3, ABG, ICA, LDH3, DDI2, CRP2, MG3, PHOS3, BMP3M ####[address] Glucose [Mass/Vol] 136 mg/dL High 70-100 [facility] Comment on above: Performed By: #### H EMDF, FERR3, LFT3, ABG, ICA, LDH3, DDI2, CRP2, MG3, PHOS3, BMP3M ####[address] Urea nitrogen [Mass/Vol] 47 mg/dL High 7-20 [facility] Comment on above: Performed By: #### H EMDF, FERR3, LFT3, ABG, ICA, LDH3, DDI2, CRP2, MG3, PHOS3, BMP3M ####[id number] [place], [place] Creatinine [Mass/Vol] 0.65 mg/dL Normal 0.52-1.25 [facility] Comment on above: Performed By: #### H EMDF, FERR3, LFT3, ABG, ICA, LDH3, DDI2, CRP2, MG3, PHOS3, BMP3M ####[id number] [place], [place] eGFR OTHER > 90.0 Normal >60 [facility] Comment on above: Result Comment: KDIG O guidelines provide the following GFR categories:Stage GFR(ml/min/1.73 m2) TermsG1 >=90 Normal or highG2 60-89 Mildly decreased*G3a 45-59 Mildly to moderately [id number] 30-44 Moderately to severely decreasedG4 15-29 Severely [...] ICA, LDH3, DDI2, CRP2, MG3, PHOS3, BMP3M ####[id number] [place], [place] GFR/1.73 sq M.predicted among blacks MDRD (S/P/Bld) [Vol rate/Area] mL/min/{1.73_m2} Normal >60 [facility] Comment on above: Performed By: #### H EMDF, FERR3, LFT3, ABG, ICA, LDH3, DDI2, CRP2, MG3, PHOS3, BMP3M ####[facility] [employer] [id number] [place], [place] Potassium [Moles/Vol] 3.1 mmol/L Low 3.5-5.1 [facility] Comment on above: Performed By: #### H EMDF, FERR3, LFT3, ABG, ICA, LDH3, DDI2, CRP2, MG3, PHOS3, BMP3M ####[id number] [place], [place] Chloride [Moles/Vol] 104 mmol/L Normal 98-107 [facility] Comment on above: Performed By: #### H EMDF, FERR3, LFT3, ABG, ICA, LDH3, DDI2, CRP2, MG3, PHOS3, BMP3M ####[id number] [place], [place] Sodium [Moles/Vol] 142 mmol/L Normal 135-145 [facility] Comment on above: Performed By: #### H EMDF, FERR3, LFT3, ABG, ICA, LDH3, DDI2, CRP2, MG3, PHOS3, BMP3M ####[address] C-Reactive Proteinon 021 CRP [Mass/Vol] 204.0 mg/L High 0.0-6.0 [facility] Comment on above: Result Comment: . Performed By: #### H EMDF, FERR3, LFT3, ABG, ICA, LDH3, DDI2, CRP2, MG3, PHOS3, BMP3M ####[address] CR Chest Portableon 06-19-20 21 CR Chest Portable Normal [facility] CULT./ST. RESPIRATORYon 05-31 CULT./ST. RESPIRATORY Normal [facility] Comment on above: Performed By: #### C S/RE ####[id number] [place] [id number] [address] [place], [place] #### S/GRM ####[address] CULTURE BLOODon 06-19-2021 Microscopic examination of blood, culture 1 Organism (Coagulase-negative) Staphylococcus hominis Isolated: For identification and/or sensitivity, refer to culture collected on: 06/15/2021 at 2308, ([id number]). Normal [facility] Comment on above: Performed By: #### C /BLD ####[address] Calcium,Ionizedon 06-19-2021 Ionized Ca,Measured 3.90 mg/dL Low 4.30-5.20 [facility] Comment on above: Performed By: #### H EMDF, FERR3, LFT3, ABG, ICA, LDH3, DDI2, CRP2, MG3, PHOS3, BMP3M ####[address] [place], [place] pH, Ionized Calcium 7.45 Normal 7.31-7.46 [facility] Comment on above: Performed By: #### H EMDF, FERR3, LFT3, ABG, ICA, LDH3, DDI2, CRP2, MG3, PHOS3, BMP3M ####[id number] [place], [place] D-Dimer, Innovanceon 021 D-Dimer, [employer] 15.92 mg/L High <0.19-0.50 [facility] Comment on above: Result Comment: Inno [place] D-Dimer values of <0.50 mg/L FEU can be used incombination with a pre-test probability model (e.g. Well's)to exclude pulmonary embolism (PE) disease, as well as jodi in the diagnosis of deep vein thrombosis (DVT). Performed By: #### H EMDF, FERR3, LFT3, ABG, ICA, LDH3, DDI2, CRP2, MG3, PHOS3, BMP3M ####[facility] [employer] [id number] [place], [place] Echo Complete w/wo Contrasto n 06-19-2021 Echo Complete w/wo Contrast Normal [facility] Ferritinon 06-19-2021 Ferritin [Mass/Vol] 340 ng/mL High 8-252 [facility] Comment on above: Performed By: #### H EMDF, FERR3, LFT3, ABG, ICA, LDH3, DDI2, CRP2, MG3, PHOS3, BMP3M ####[id number] [place], [place] Glucose,Bedsideon 06-19-2021 Glucose [Mass/Vol] 162 mg/dL High 70-100 [facility] Comment on above: Result Comment: Test performed by glucose meter. Results may be 10%-15% lowerthan serum/plasma values. (CLIA ID [id number]) Performed By: #### B GLU ####[address] [place], [place] Glucose [Mass/Vol] 185 mg/dL High 70-100 [facility] Comment on above: Result Comment: Test performed by glucose meter. Results may be 10%-15% lowerthan serum/plasma values. (CLIA ID [id number]) Performed By: #### B GLU ####[address] [place], [place] Glucose [Mass/Vol] 159 mg/dL High 70-100 [facility] Comment on above: Result Comment: Test performed by glucose meter. Results may be 10%-15% lowerthan serum/plasma values. (CLIA ID [id number]) Performed By: #### B GLU ####[address] Glucose [Mass/Vol] 137 mg/dL High 70-100 [facility] Comment on above: Result Comment: Test performed by glucose meter. Results may be 10%-15% lowerthan serum/plasma values. (CLIA ID [id number]) Performed By: #### B GLU ####[address] Hemogram w/ Autodiffon 06-19 Abs Baso Cnt 0.0 10*3/uL Normal 0.0-0.2 [facility] Comment on above: Performed By: #### H EMDF, FERR3, LFT3, ABG, ICA, LDH3, DDI2, CRP2, MG3, PHOS3, BMP3M ####[id number] [place], [place] Abs Neutrophile Cnt 10.4 10*3/uL High 1.8-7.0 [facility] Comment on above: Performed By: #### H EMDF, FERR3, LFT3, ABG, ICA, LDH3, DDI2, CRP2, MG3, PHOS3, BMP3M ####[address] Basophils/100 WBC (Bld) 0.0 % Normal 0.0-2.0 [facility] Comment on above: Performed By: #### H EMDF, FERR3, LFT3, ABG, ICA, LDH3, DDI2, CRP2, MG3, PHOS3, BMP3M ####[address] Eosinophils (Bld) [#/Vol] 0.1 10*3/uL Normal 0.0-0.5 [facility] Comment on above: Performed By: #### H EMDF, FERR3, LFT3, ABG, ICA, LDH3, DDI2, CRP2, MG3, PHOS3, BMP3M ####[address] Eosinophils/100 WBC (Bld) 0.6 % Low 1.0-6.0 [facility] Comment on above: Performed By: #### H EMDF, FERR3, LFT3, ABG, ICA, LDH3, DDI2, CRP2, MG3, PHOS3, BMP3M ####[address] Erythrocyte distribution width (RBC) [Ratio] 22.0 % High 11.5-14.5 [facility] Comment on above: Performed By: #### H EMDF, FERR3, LFT3, ABG, ICA, LDH3, DDI2, CRP2, MG3, PHOS3, BMP3M ####[address] Granulocytes/100 WBC (Bld) 86.5 % High 40.0-80.0 [facility] Comment on above: Performed By: #### H EMDF, FERR3, LFT3, ABG, ICA, LDH3, DDI2, CRP2, MG3, PHOS3, BMP3M ####[address] Hematocrit (Bld) [Volume fraction] 34.9 % Low 35.0-47.0 [facility] Comment on above: Performed By: #### H EMDF, FERR3, LFT3, ABG, ICA, LDH3, DDI2, CRP2, MG3, PHOS3, BMP3M ####[address] Hemoglobin (Bld) [Mass/Vol] 10.8 g/dL Low 11.7-16.0 [facility] Comment on above: Performed By: #### H EMDF, FERR3, LFT3, ABG, ICA, LDH3, DDI2, CRP2, MG3, PHOS3, BMP3M ####[address] Lymphocytes (Bld) [#/Vol] 0.6 10*3/uL Low 1.0-4.3 [facility] Comment on above: Performed By: #### H EMDF, FERR3, LFT3, ABG, ICA, LDH3, DDI2, CRP2, MG3, PHOS3, BMP3M ####[address] Lymphocytes/100 WBC (Bld) 5.0 % Low 20.0-40.0 [facility] Comment on above: Performed By: #### H EMDF, FERR3, LFT3, ABG, ICA, LDH3, DDI2, CRP2, MG3, PHOS3, BMP3M ####[address] MCH (RBC) [Entitic mass] 23.2 pg Low 26.0-34.0 [facility] Comment on above: Performed By: #### H EMDF, FERR3, LFT3, ABG, ICA, LDH3, DDI2, CRP2, MG3, PHOS3, BMP3M ####[address] MCHC 31.0 % Low 32.0-36.0 [facility] Comment on above: Performed By: #### H EMDF, FERR3, LFT3, ABG, ICA, LDH3, DDI2, CRP2, MG3, PHOS3, BMP3M ####[address] MCV (RBC) [Entitic vol] 74.7 fL Low 79.0-98.0 [facility] Comment on above: Performed By: #### H EMDF, FERR3, LFT3, ABG, ICA, LDH3, DDI2, CRP2, MG3, PHOS3, BMP3M ####[address] Monocytes (Bld) [#/Vol] 0.9 10*3/uL High 0.0-0.8 [facility] Comment on above: Performed By: #### H EMDF, FERR3, LFT3, ABG, ICA, LDH3, DDI2, CRP2, MG3, PHOS3, BMP3M ####[address] Monocytes/100 WBC (Bld) 7.9 % Normal 2.0-10.0 [facility] Comment on above: Performed By: #### H EMDF, FERR3, LFT3, ABG, ICA, LDH3, DDI2, CRP2, MG3, PHOS3, BMP3M ####[address] Platelet mean volume (Bld) [Entitic vol] 9.6 fL Normal 7.4-10.4 [facility] Comment on above: Performed By: #### H EMDF, FERR3, LFT3, ABG, ICA, LDH3, DDI2, CRP2, MG3, PHOS3, BMP3M ####[address] Platelets (Bld) [#/Vol] 108 10*3/uL Low 140-440 [facility] Comment on above: Performed By: #### H EMDF, FERR3, LFT3, ABG, ICA, LDH3, DDI2, CRP2, MG3, PHOS3, BMP3M ####[id number] [place], [place] RBC (Bld) [#/Vol] 4.67 10*6/uL Normal 3.80-5.20 [facility] Comment on above: Performed By: #### H EMDF, FERR3, LFT3, ABG, ICA, LDH3, DDI2, CRP2, MG3, PHOS3, BMP3M ####[id number] [place], [place] WBC (Bld) [#/Vol] 12.0 10*3/uL High 3.6-10.7 [facility] Comment on above: Performed By: #### H EMDF, FERR3, LFT3, ABG, ICA, LDH3, DDI2, CRP2, MG3, PHOS3, BMP3M ####[address] Hepatic Functionon 1 ALT [Catalytic activity/Vol] 64 U/L High 0-34 [facility] Comment on above: Result Comment: The ALT test is performed by an updated assay method.Please note that the reference intervals have beenchanged and are now sex specific. Performed By: #### H EMDF, FERR3, LFT3, ABG, ICA, LDH3, DDI2, CRP2, MG3, PHOS3, BMP3M ####[id number] [place], [place] ALP [Catalytic activity/Vol] 78 U/L Normal 38-126 [facility] Comment on above: Performed By: #### H EMDF, FERR3, LFT3, ABG, ICA, LDH3, DDI2, CRP2, MG3, PHOS3, BMP3M ####[id number] [place], [place] AST [Catalytic activity/Vol] 34 U/L Normal 15-46 [facility] Comment on above: Performed By: #### H EMDF, FERR3, LFT3, ABG, ICA, LDH3, DDI2, CRP2, MG3, PHOS3, BMP3M ####[address] [place], [place] Bilirubin [Mass/Vol] 1.0 mg/dL Normal 0.2-1.3 [facility] Comment on above: Performed By: #### H EMDF, FERR3, LFT3, ABG, ICA, LDH3, DDI2, CRP2, MG3, PHOS3, BMP3M ####[address] Protein [Mass/Vol] 6.2 g/dL Low 6.3-8.2 [facility] Comment on above: Performed By: #### H EMDF, FERR3, LFT3, ABG, ICA, LDH3, DDI2, CRP2, MG3, PHOS3, BMP3M ####[address] Bilirubin.indirect [Mass/Vol] 0.0 mg/dL Normal 0.0-0.3 [facility] Comment on above: Performed By: #### H EMDF, FERR3, LFT3, ABG, ICA, LDH3, DDI2, CRP2, MG3, PHOS3, BMP3M ####[address] Albumin [Mass/Vol] 3.0 g/dL Low 3.5-5.0 [facility] Comment on above: Performed By: #### H EMDF, FERR3, LFT3, ABG, ICA, LDH3, DDI2, CRP2, MG3, PHOS3, BMP3M ####[address] LDHon 06-19-2021 LDH 333 U/L High 120-246 [facility] Comment on above: Performed By: #### H EMDF, FERR3, LFT3, ABG, ICA, LDH3, DDI2, CRP2, MG3, PHOS3, BMP3M ####[address] Magnesiumon 06-19-2021 Magnesium [Mass/Vol] 2.5 mg/dL High 1.6-2.3 [facility] Comment on above: Performed By: #### H EMDF, FERR3, LFT3, ABG, ICA, LDH3, DDI2, CRP2, MG3, PHOS3, BMP3M ####[address] Phosphoruson 06-19-2021 Phosphate [Mass/Vol] 2.5 mg/dL Normal 2.5-4.5 [facility] Comment on above: Performed By: #### H EMDF, FERR3, LFT3, ABG, ICA, LDH3, DDI2, CRP2, MG3, PHOS3, BMP3M ####[address] Procalcitoninon 06-19-2021 Procalcitonin 0.10 ng/mL High 0.00-0.09 [facility] Comment on above: Performed By: #### P OLESYA ####[address] Interpretation See Below Normal [facility] Comment on above: Result Comment: PCT <0.50 = Low risk of severe sepsis and/or septic shock.PCT >2.00 = High risk of severe sepsis and/or septic shock. Performed By: #### P OLESYA ####[address] STAIN GRAMon 06-19-2021 STAIN GRAM STAIN GRAM --> Statu s: F Moderate polymorphonuclear cells/lpf. Moderate epithelial cells/lpf. Rare gram positive cocci in pairs and chains. Moderate epithelial cells/lpf. Rare gram positive cocci in pairs and chains. Normal [facility] Comment on above: Performed By: #### S /GRM ####[address] #### CS/RE ####[address] [id number] Arterial Blood Gaseson 06-18 CO2 [Moles/Vol] 33.1 mmol/L High 23.0-27.0 [facility] Comment on above: Performed By: #### A BG ####[id number] [place], [place] HCO3 (Bld) [Moles/Vol] 31.9 mmol/L High 21.0-25.0 [facility] Comment on above: Performed By: #### A BG ####[address] [address] [place], [place] Hemoglobin (Bld) [Mass/Vol] 12.3 g/dL Normal ScreenOnly [facility] Comment on above: Performed By: #### A BG ####[id number] [place], [place] Oxygen (Bld) [Partial pressure] 73.2 mm[Hg] Low 80.0-100.0 [facility] Comment on above: Performed By: #### A BG ####[address] Oxygen saturation in Blood 93.9 % Low 95.0-100.0 [facility] Comment on above: Performed By: #### A BG ####[address] [place], [place] pCO2 41.5 mm[Hg] Normal 35.0-45.0 [facility] Comment on above: Performed By: #### A BG ####[address] [place], [place] pH 7.503 High 7.350-7.450 [facility] Comment on above: Performed By: #### A BG ####[address] Std Base Excess 8.0 mmol/L High -3.0-3.0 [facility] Comment on above: Performed By: #### A BG ####[address] FIO2 50% Normal [facility] Comment on above: Performed By: #### A BG ####[address] Basic Metabolic Panelon 07-2 0-2020 Anion gap [Moles/Vol] 6 mmol/L Normal 3-13 [facility] Comment on above: Performed By: #### P HOS3, BMP3M, CRP2, ICA, FERR3, HEMDF, LFT3, MG3, DDI2, LDH3 ####[address] [place], [place] Calcium [Mass/Vol] 8.3 mg/dL Low 8.4-10.4 [facility] Comment on above: Performed By: #### P HOS3, BMP3M, CRP2, ICA, FERR3, HEMDF, LFT3, MG3, DDI2, LDH3 ####[address] [place], [place] CO2 [Moles/Vol] 31 mmol/L High 22-30 [facility] Comment on above: Performed By: #### P HOS3, BMP3M, CRP2, ICA, FERR3, HEMDF, LFT3, MG3, DDI2, LDH3 ####[address] [place], [place] Glucose [Mass/Vol] 229 mg/dL High 70-100 [facility] Comment on above: Performed By: #### P HOS3, BMP3M, CRP2, ICA, FERR3, HEMDF, LFT3, MG3, DDI2, LDH3 ####[address] [place], [place] Urea nitrogen [Mass/Vol] 59 mg/dL High 7-20 [facility] Comment on above: Performed By: #### P HOS3, BMP3M, CRP2, ICA, FERR3, HEMDF, LFT3, MG3, DDI2, LDH3 ####[address] [place], [place] Creatinine [Mass/Vol] 0.71 mg/dL Normal 0.52-1.25 [facility] Comment on above: Performed By: #### P HOS3, BMP3M, CRP2, ICA, FERR3, HEMDF, LFT3, MG3, DDI2, LDH3 ####[facility] [employer] [id number] [place], [place] eGFR OTHER > 90.0 Normal >60 [facility] Comment on above: Result Comment: KDIG O guidelines provide the following GFR categories:Stage GFR(ml/min/1.73 m2) TermsG1 >=90 Normal or highG2 60-89 Mildly decreased*G3a 45-59 Mildly to moderately [id number] 30-44 Moderately to severely decreasedG4 15-29 Severely [...] ICA, FERR3, HEMDF, LFT3, MG3, DDI2, LDH3 ####[facility] [employer] [id number] [place], [place] GFR/1.73 sq M.predicted among blacks MDRD (S/P/Bld) [Vol rate/Area] mL/min/{1.73_m2} Normal >60 [facility] Comment on above: Performed By: #### P HOS3, BMP3M, CRP2, ICA, FERR3, HEMDF, LFT3, MG3, DDI2, LDH3 ####[facility] [employer] [id number] [place], [place] Potassium [Moles/Vol] 3.3 mmol/L Low 3.5-5.1 [facility] Comment on above: Performed By: #### P HOS3, BMP3M, CRP2, ICA, FERR3, HEMDF, LFT3, MG3, DDI2, LDH3 ####[address] [place], [place] Sodium [Moles/Vol] 140 mmol/L Normal 135-145 [facility] Comment on above: Performed By: #### P HOS3, BMP3M, CRP2, ICA, FERR3, HEMDF, LFT3, MG3, DDI2, LDH3 ####[address] [place], [place] Chloride [Moles/Vol] 104 mmol/L Normal 98-107 [facility] Comment on above: Performed By: #### P HOS3, BMP3M, CRP2, ICA, FERR3, HEMDF, LFT3, MG3, DDI2, LDH3 ####[address] [place], [place] C-Reactive Proteinon 021 CRP [Mass/Vol] 20.6 mg/L High 0.0-6.0 [facility] Comment on above: Result Comment: . Performed By: #### P HOS3, BMP3M, CRP2, ICA, FERR3, HEMDF, LFT3, MG3, DDI2, LDH3 ####[address] CR Abdomen APon 06-18-2021 CR Abdomen AP Normal [facility] CR Chest Portableon 06-18-20 CR Chest Portable Normal [facility] CULTURE BLOODon 06-18-2021 Microscopic examination of blood, culture CULTURE BLOOD --> Status: F No growth at 5 days. Normal [facility] Comment on above: Performed By: #### C /BLD ####[address] CULTURE BLOOD (Two)on 2020 Microscopic examination of blood, culture CULTURE BLOOD (Two) --> Status: F No growth at 5 days. Normal [facility] Comment on above: Performed By: #### C /BLT ####[address] CULTURE URINEon 06-18-2021 CULTURE URINE Normal [facility] Comment on above: Performed By: #### C /UR ####[address] [id number] [place], [place] [id number] Calcium,Ionizedon 06-18-2021 Ionized Ca,Measured 4.00 mg/dL Low 4.30-5.20 [facility] Comment on above: Performed By: #### P HOS3, BMP3M, CRP2, ICA, FERR3, HEMDF, LFT3, MG3, DDI2, LDH3 ####[address] [place], [place] pH, Ionized Calcium 7.42 Normal 7.31-7.46 [facility] Comment on above: Performed By: #### P HOS3, BMP3M, CRP2, ICA, FERR3, HEMDF, LFT3, MG3, DDI2, LDH3 ####[address] [place], [place] D-Dimer, Innovanceon 06-18-2 021 D-Dimer, [employer] 12.05 mg/L High <0.19-0.50 [facility] Comment on above: Result Comment: Inno car[place] D-Dimer values of <0.50 mg/L FEU can be used incombination with a pre-test probability model (e.g. Well's)to exclude pulmonary embolism (PE) disease, as well as jodi in the diagnosis of deep vein thrombosis (DVT). Performed By: #### P HOS3, BMP3M, CRP2, ICA, FERR3, HEMDF, LFT3, MG3, DDI2, LDH3 ####[address] [place], [place] Ferritinon 06-18-2021 Ferritin [Mass/Vol] 139 ng/mL Normal 8-252 [facility] Comment on above: Performed By: #### P HOS3, BMP3M, CRP2, ICA, FERR3, HEMDF, LFT3, MG3, DDI2, LDH3 ####[address] [place], [place] Glucose,Bedsideon 06-18-2021 Glucose [Mass/Vol] 163 mg/dL High 70-100 [facility] Comment on above: Result Comment: Test performed by glucose meter. Results may be 10%-15% lowerthan serum/plasma values. (CLIA ID [id number]) Performed By: #### B GLU ####[id number] [place] [address] Glucose [Mass/Vol] 216 mg/dL High 70-100 [facility] Comment on above: Result Comment: Test performed by glucose meter. Results may be 10%-15% lowerthan serum/plasma values. (CLIA ID [id number]) Performed By: #### B GLU ####[id number] [place] [address] Glucose [Mass/Vol] 196 mg/dL High [address] [facility] Comment on above: Result Comment: Test performed by glucose meter. Results may be 10%-15% lowerthan serum/plasma values. (CLIA ID [id number]) Performed By: #### B GLU ####[id number] [place] [address] Glucose [Mass/Vol] 192 mg/dL High [address] Comment on above: Result Comment: Test performed by glucose meter. Results may be 10%-15% lowerthan serum/plasma values. (CLIA ID [id number]) Performed By: #### B GLU ####[id number] [place] [address] Glucose [Mass/Vol] 205 mg/dL High [address] Comment on above: Result Comment: Test performed by glucose meter. Results may be 10%-15% lowerthan serum/plasma values. (CLIA ID [id number]) Performed By: #### B GLU ####[id number] [place] [address] Hemogram w/ Autodiffon 06-18 Abs Baso Cnt 0.0 10*3/uL Normal 0.0-0.2 [facility] Comment on above: Performed By: #### P HOS3, BMP3M, CRP2, ICA, FERR3, HEMDF, LFT3, MG3, DDI2, LDH3 ####[address] Abs Neutrophile Cnt 9.4 10*3/uL High 1.8-7.0 [facility] Comment on above: Performed By: #### P HOS3, BMP3M, CRP2, ICA, FERR3, HEMDF, LFT3, MG3, DDI2, LDH3 ####[address] Basophils/100 WBC (Bld) 0.0 % Normal 0.0-2.0 [facility] Comment on above: Performed By: #### P HOS3, BMP3M, CRP2, ICA, FERR3, HEMDF, LFT3, MG3, DDI2, LDH3 ####[address] Eosinophils (Bld) [#/Vol] 0.0 10*3/uL Normal 0.0-0.5 [facility] Comment on above: Performed By: #### P HOS3, BMP3M, CRP2, ICA, FERR3, HEMDF, LFT3, MG3, DDI2, LDH3 ####[address] Eosinophils/100 WBC (Bld) 0.1 % Low 1.0-6.0 [facility] Comment on above: Performed By: #### P HOS3, BMP3M, CRP2, ICA, FERR3, HEMDF, LFT3, MG3, DDI2, LDH3 ####[address] Erythrocyte distribution width (RBC) [Ratio] 21.3 % High 11.5-14.5 [facility] Comment on above: Performed By: #### P HOS3, BMP3M, CRP2, ICA, FERR3, HEMDF, LFT3, MG3, DDI2, LDH3 ####[address] Granulocytes/100 WBC (Bld) 84.9 % High 40.0-80.0 [facility] Comment on above: Performed By: #### P HOS3, BMP3M, CRP2, ICA, FERR3, HEMDF, LFT3, MG3, DDI2, LDH3 ####[address] Hematocrit (Bld) [Volume fraction] 34.3 % Low 35.0-47.0 [facility] Comment on above: Performed By: #### P HOS3, BMP3M, CRP2, ICA, FERR3, HEMDF, LFT3, MG3, DDI2, LDH3 ####[address] Hemoglobin (Bld) [Mass/Vol] 10.9 g/dL Low 11.7-16.0 [facility] Comment on above: Performed By: #### P HOS3, BMP3M, CRP2, ICA, FERR3, HEMDF, LFT3, MG3, DDI2, LDH3 ####[address] Lymphocytes (Bld) [#/Vol] 0.7 10*3/uL Low 1.0-4.3 [facility] Comment on above: Performed By: #### P HOS3, BMP3M, CRP2, ICA, FERR3, HEMDF, LFT3, MG3, DDI2, LDH3 ####[address] Lymphocytes/100 WBC (Bld) 6.5 % Low 20.0-40.0 [facility] Comment on above: Performed By: #### P HOS3, BMP3M, CRP2, ICA, FERR3, HEMDF, LFT3, MG3, DDI2, LDH3 ####[address] MCH (RBC) [Entitic mass] 23.2 pg Low 26.0-34.0 [facility] Comment on above: Performed By: #### P HOS3, BMP3M, CRP2, ICA, FERR3, HEMDF, LFT3, MG3, DDI2, LDH3 ####[address] [place] MCHC 31.7 % Low 32.0-36.0 [facility] Comment on above: Performed By: #### P HOS3, BMP3M, CRP2, ICA, FERR3, HEMDF, LFT3, MG3, DDI2, LDH3 ####[address] MCV (RBC) [Entitic vol] 73.0 fL Low 79.0-98.0 [facility] Comment on above: Performed By: #### P HOS3, BMP3M, CRP2, ICA, FERR3, HEMDF, LFT3, MG3, DDI2, LDH3 ####[address] Monocytes (Bld) [#/Vol] 1.0 10*3/uL High 0.0-0.8 [facility] Comment on above: Performed By: #### P HOS3, BMP3M, CRP2, ICA, FERR3, HEMDF, LFT3, MG3, DDI2, LDH3 ####[address] Monocytes/100 WBC (Bld) 8.5 % Normal 2.0-10.0 [facility] Comment on above: Performed By: #### P HOS3, BMP3M, CRP2, ICA, FERR3, HEMDF, LFT3, MG3, DDI2, LDH3 ####[address] Platelet mean volume (Bld) [Entitic vol] 9.4 fL Normal 7.4-10.4 [facility] Comment on above: Performed By: #### P HOS3, BMP3M, CRP2, ICA, FERR3, HEMDF, LFT3, MG3, DDI2, LDH3 ####[address] Platelets (Bld) [#/Vol] 108 10*3/uL Low 140-440 [facility] Comment on above: Performed By: #### P HOS3, BMP3M, CRP2, ICA, FERR3, HEMDF, LFT3, MG3, DDI2, LDH3 ####[address] RBC (Bld) [#/Vol] 4.71 10*6/uL Normal 3.80-5.20 [facility] Comment on above: Performed By: #### P HOS3, BMP3M, CRP2, ICA, FERR3, HEMDF, LFT3, MG3, DDI2, LDH3 ####[address] WBC (Bld) [#/Vol] 11.1 10*3/uL High 3.6-10.7 [facility] Comment on above: Performed By: #### P HOS3, BMP3M, CRP2, ICA, FERR3, HEMDF, LFT3, MG3, DDI2, LDH3 ####[address] Hepatic Functionon 1 ALP [Catalytic activity/Vol] 78 U/L Normal 38-126 [facility] Comment on above: Performed By: #### P HOS3, BMP3M, CRP2, ICA, FERR3, HEMDF, LFT3, MG3, DDI2, LDH3 ####[address] ALT [Catalytic activity/Vol] 86 U/L High 0-34 [facility] Comment on above: Result Comment: The ALT test is performed by an updated assay method.Please note that the reference intervals have beenchanged and are now sex specific. Performed By: #### P HOS3, BMP3M, CRP2, ICA, FERR3, HEMDF, LFT3, MG3, DDI2, LDH3 ####[address] AST [Catalytic activity/Vol] 32 U/L Normal 15-46 [facility] Comment on above: Performed By: #### P HOS3, BMP3M, CRP2, ICA, FERR3, HEMDF, LFT3, MG3, DDI2, LDH3 ####[address] Bilirubin [Mass/Vol] 0.6 mg/dL Normal 0.2-1.3 [facility] Comment on above: Performed By: #### P HOS3, BMP3M, CRP2, ICA, FERR3, HEMDF, LFT3, MG3, DDI2, LDH3 ####[address] Bilirubin.indirect [Mass/Vol] 0.0 mg/dL Normal 0.0-0.3 [facility] Comment on above: Performed By: #### P HOS3, BMP3M, CRP2, ICA, FERR3, HEMDF, LFT3, MG3, DDI2, LDH3 ####[address] Protein [Mass/Vol] 6.1 g/dL Low 6.3-8.2 [facility] Comment on above: Performed By: #### P HOS3, BMP3M, CRP2, ICA, FERR3, HEMDF, LFT3, MG3, DDI2, LDH3 ####[address] Albumin [Mass/Vol] 3.1 g/dL Low 3.5-5.0 [facility] Comment on above: Performed By: #### P HOS3, BMP3M, CRP2, ICA, FERR3, HEMDF, LFT3, MG3, DDI2, LDH3 ####[address] LDHon 06-18-2021 LDH 290 U/L High 120-246 [facility] Comment on above: Performed By: #### P HOS3, BMP3M, CRP2, ICA, FERR3, HEMDF, LFT3, MG3, DDI2, LDH3 ####[address] Magnesiumon 06-18-2021 Magnesium [Mass/Vol] 2.3 mg/dL Normal 1.6-2.3 [facility] Comment on above: Performed By: #### P HOS3, BMP3M, CRP2, ICA, FERR3, HEMDF, LFT3, MG3, DDI2, LDH3 ####[id number] [place] [address] Phosphoruson 06-18-2021 Phosphate [Mass/Vol] 3.4 mg/dL Normal 2.5-4.5 [facility] Comment on above: Performed By: #### P HOS3, BMP3M, CRP2, ICA, FERR3, HEMDF, LFT3, MG3, DDI2, LDH3 ####[address] [place] [address] Basic Metabolic Panelon 05-30 Calcium [Mass/Vol] 8.6 mg/dL Normal 8.4-10.4 [facility] Comment on above: Performed By: #### P HOS3, LDH3, DDI2, CRP2, BMP3M, MG3, FERR3, HEMDF, LFT3, ICA ####[address] Anion gap [Moles/Vol] 6 mmol/L Normal 3-13 [facility] Comment on above: Performed By: #### P HOS3, LDH3, DDI2, CRP2, BMP3M, MG3, FERR3, HEMDF, LFT3, ICA ####[address] CO2 [Moles/Vol] 31 mmol/L High 22-30 [facility] Comment on above: Performed By: #### P HOS3, LDH3, DDI2, CRP2, BMP3M, MG3, FERR3, HEMDF, LFT3, ICA ####[id number] [place], [place] Glucose [Mass/Vol] 258 mg/dL High 70-100 [facility] Comment on above: Performed By: #### P HOS3, LDH3, DDI2, CRP2, BMP3M, MG3, FERR3, HEMDF, LFT3, ICA ####[id number] [place], [place] Urea nitrogen [Mass/Vol] 56 mg/dL High 7-20 [facility] Comment on above: Performed By: #### P HOS3, LDH3, DDI2, CRP2, BMP3M, MG3, FERR3, HEMDF, LFT3, ICA ####[id number] [place], [place] Creatinine [Mass/Vol] 0.88 mg/dL Normal 0.52-1.25 [facility] Comment on above: Performed By: #### P HOS3, LDH3, DDI2, CRP2, BMP3M, MG3, FERR3, HEMDF, LFT3, ICA ####[id number] [place], [place] GFR/1.73 sq M.predicted among blacks MDRD (S/P/Bld) [Vol rate/Area] 86.7 mL/min/{1.73_m2} Normal >60 [facility] Comment on above: Performed By: #### P HOS3, LDH3, DDI2, CRP2, BMP3M, MG3, FERR3, HEMDF, LFT3, ICA ####[id number] [place], [place] GFR/1.73 sq M.predicted among non-blacks MDRD (S/P/Bld) [Vol rate/Area] 74.8 mL/min/{1.73_m2} Normal >60 [facility] Comment on above: Result Comment: KDIG O guidelines provide the following GFR categories:Stage GFR(ml/min/1.73 m2) TermsG1 >=90 Normal or highG2 60-89 Mildly decreased*G3a 45-59 Mildly to moderately [id number] 30-44 Moderately to severely decreasedG4 15-29 Severely [...] CRP2, BMP3M, MG3, FERR3, HEMDF, LFT3, ICA ####[address] [id number] Potassium [Moles/Vol] 3.7 mmol/L Normal 3.5-5.1 [facility] Comment on above: Performed By: #### P HOS3, LDH3, DDI2, CRP2, BMP3M, MG3, FERR3, HEMDF, LFT3, ICA ####[address] Sodium [Moles/Vol] 142 mmol/L Normal 135-145 [facility] Comment on above: Performed By: #### P HOS3, LDH3, DDI2, CRP2, BMP3M, MG3, FERR3, HEMDF, LFT3, ICA ####[address] Chloride [Moles/Vol] 105 mmol/L Normal 98-107 [facility] Comment on above: Performed By: #### P HOS3, LDH3, DDI2, CRP2, BMP3M, MG3, FERR3, HEMDF, LFT3, ICA ####[address] C-Reactive Proteinon 021 CRP [Mass/Vol] 7.8 mg/L High 0.0-6.0 [facility] Comment on above: Result Comment: . Performed By: #### P HOS3, LDH3, DDI2, CRP2, BMP3M, MG3, FERR3, HEMDF, LFT3, ICA ####[address] [address] CR Chest Portableon 06-17-20 21 CR Chest Portable Normal [facility] Calcium,Ionizedon 06-17-2021 Ionized Ca,Measured 4.40 mg/dL Normal 4.30-5.20 [facility] Comment on above: Performed By: #### P HOS3, LDH3, DDI2, CRP2, BMP3M, MG3, FERR3, HEMDF, LFT3, ICA ####[id number] [place], [place] pH, Ionized Calcium 7.46 Normal 7.31-7.46 [facility] Comment on above: Performed By: #### P HOS3, LDH3, DDI2, CRP2, BMP3M, MG3, FERR3, HEMDF, LFT3, ICA ####[id number] [place] [address] D-Dimer, Innovanceon 021 D-Dimer, Innovance 13.33 mg/L High <0.19-0.50 [facility] Comment on above: Result Comment: Inno carrington D-Dimer values of <0.50 mg/L FEU can be used incombination with a pre-test probability model (e.g. Well's)to exclude pulmonary embolism (PE) disease, as well as jodi in the diagnosis of deep vein thrombosis (DVT). Performed By: #### P HOS3, LDH3, DDI2, CRP2, BMP3M, MG3, FERR3, HEMDF, LFT3, ICA ####[facility] [employer] [id number] [place], [place] Ferritinon 06-17-2021 Ferritin [Mass/Vol] 209 ng/mL Normal 8-252 [facility] Comment on above: Performed By: #### P HOS3, LDH3, DDI2, CRP2, BMP3M, MG3, FERR3, HEMDF, LFT3, ICA ####[facility] [employer] [id number] [place], [place] Glucose,Bedsideon 06-17-2021 Glucose [Mass/Vol] 239 mg/dL High 70-100 [facility] Comment on above: Result Comment: Test performed by glucose meter. Results may be 10%-15% lowerthan serum/plasma values. (CLIA ID [id number]) Performed By: #### B GLU ####[facility] [employer] [address] [place], [place] Glucose [Mass/Vol] 268 mg/dL High 70-100 [facility] Comment on above: Result Comment: Test performed by glucose meter. Results may be 10%-15% lowerthan serum/plasma values. (CLIA ID [id number]) Performed By: #### B GLU ####[facility] [employer] [id number] [place] [address] Glucose [Mass/Vol] 252 mg/dL High 70-100 [facility] Comment on above: Result Comment: Test performed by glucose meter. Results may be 10%-15% lowerthan serum/plasma values. (CLIA ID [id number]) Performed By: #### B GLU ####[facility] [employer] [address] [place], [place] Glucose [Mass/Vol] 260 mg/dL High 70-100 [facility] Comment on above: Result Comment: Test performed by glucose meter. Results may be 10%-15% lowerthan serum/plasma values. (CLIA ID [id number]) Performed By: #### B GLU ####[facility] [employer] [address] [place], [place] Glucose [Mass/Vol] 272 mg/dL [facility] [address] Comment on above: Result Comment: Test performed by glucose meter. Results may be 10%-15% lowerthan serum/plasma values. (CLIA ID [id number]) Performed By: #### B GLU ####[facility] [employer] [address] [place], [place] Hemogram w/ Autodiffon 06-17 Abs Baso Cnt 0.0 10*3/uL Normal 0.0-0.2 [facility] Comment on above: Performed By: #### P HOS3, LDH3, DDI2, CRP2, BMP3M, MG3, FERR3, HEMDF, LFT3, ICA ####[facility] [employer] [id number] [facility], [place] Abs Neutrophile Cnt 10.8 10*3/uL High 1.8-7.0 [facility] Comment on above: Performed By: #### P HOS3, LDH3, DDI2, CRP2, BMP3M, MG3, FERR3, HEMDF, LFT3, ICA ####[address] Basophils/100 WBC (Bld) 0.1 % Normal 0.0-2.0 [facility] Comment on above: Performed By: #### P HOS3, LDH3, DDI2, CRP2, BMP3M, MG3, FERR3, HEMDF, LFT3, ICA ####[address] Eosinophils (Bld) [#/Vol] 0.0 10*3/uL Normal 0.0-0.5 [facility] Comment on above: Performed By: #### P HOS3, LDH3, DDI2, CRP2, BMP3M, MG3, FERR3, HEMDF, LFT3, ICA ####[address] Eosinophils/100 WBC (Bld) 0.0 % Low 1.0-6.0 [facility] Comment on above: Performed By: #### P HOS3, LDH3, DDI2, CRP2, BMP3M, MG3, FERR3, HEMDF, LFT3, ICA ####[address] Erythrocyte distribution width (RBC) [Ratio] 21.7 % High 11.5-14.5 [facility] Comment on above: Performed By: #### P HOS3, LDH3, DDI2, CRP2, BMP3M, MG3, FERR3, HEMDF, LFT3, ICA ####[address] Granulocytes/100 WBC (Bld) 90.1 % High 40.0-80.0 [facility] Comment on above: Performed By: #### P HOS3, LDH3, DDI2, CRP2, BMP3M, MG3, FERR3, HEMDF, LFT3, ICA ####[address] Hematocrit (Bld) [Volume fraction] 36.3 % Normal 35.0-47.0 [facility] Comment on above: Performed By: #### P HOS3, LDH3, DDI2, CRP2, BMP3M, MG3, FERR3, HEMDF, LFT3, ICA ####[address] Hemoglobin (Bld) [Mass/Vol] 11.3 g/dL Low 11.7-16.0 [facility] Comment on above: Performed By: #### P HOS3, LDH3, DDI2, CRP2, BMP3M, MG3, FERR3, HEMDF, LFT3, ICA ####[address] Lymphocytes (Bld) [#/Vol] 0.6 10*3/uL Low 1.0-4.3 [facility] Comment on above: Performed By: #### P HOS3, LDH3, DDI2, CRP2, BMP3M, MG3, FERR3, HEMDF, LFT3, ICA ####[address] Lymphocytes/100 WBC (Bld) 4.7 % Low 20.0-40.0 [facility] Comment on above: Performed By: #### P HOS3, LDH3, DDI2, CRP2, BMP3M, MG3, FERR3, HEMDF, LFT3, ICA ####[address] MCH (RBC) [Entitic mass] 23.1 pg Low 26.0-34.0 [facility] Comment on above: Performed By: #### P HOS3, LDH3, DDI2, CRP2, BMP3M, MG3, FERR3, HEMDF, LFT3, ICA ####[address] MCHC 31.3 % Low 32.0-36.0 [facility] Comment on above: Performed By: #### P HOS3, LDH3, DDI2, CRP2, BMP3M, MG3, FERR3, HEMDF, LFT3, ICA ####[address] MCV (RBC) [Entitic vol] 74.0 fL Low 79.0-98.0 [facility] Comment on above: Performed By: #### P HOS3, LDH3, DDI2, CRP2, BMP3M, MG3, FERR3, HEMDF, LFT3, ICA ####[address] Monocytes (Bld) [#/Vol] 0.6 10*3/uL Normal 0.0-0.8 [facility] Comment on above: Performed By: #### P HOS3, LDH3, DDI2, CRP2, BMP3M, MG3, FERR3, HEMDF, LFT3, ICA ####[address] Monocytes/100 WBC (Bld) 5.1 % Normal 2.0-10.0 [facility] Comment on above: Performed By: #### P HOS3, LDH3, DDI2, CRP2, BMP3M, MG3, FERR3, HEMDF, LFT3, ICA ####[address] Platelet mean volume (Bld) [Entitic vol] 9.4 fL Normal 7.4-10.4 [facility] Comment on above: Performed By: #### P HOS3, LDH3, DDI2, CRP2, BMP3M, MG3, FERR3, HEMDF, LFT3, ICA ####[address] Platelets (Bld) [#/Vol] 148 10*3/uL Normal 140-440 [facility] Comment on above: Performed By: #### P HOS3, LDH3, DDI2, CRP2, BMP3M, MG3, FERR3, HEMDF, LFT3, ICA ####[address] RBC (Bld) [#/Vol] 4.91 10*6/uL Normal 3.80-5.20 [facility] Comment on above: Performed By: #### P HOS3, LDH3, DDI2, CRP2, BMP3M, MG3, FERR3, HEMDF, LFT3, ICA ####[id number] [place], [place] WBC (Bld) [#/Vol] 12.0 10*3/uL High 3.6-10.7 [facility] Comment on above: Performed By: #### P HOS3, LDH3, DDI2, CRP2, BMP3M, MG3, FERR3, HEMDF, LFT3, ICA ####[id number] [place], [place] Hepatic Functionon 1 ALP [Catalytic activity/Vol] 87 U/L Normal 38-126 [facility] Comment on above: Performed By: #### P HOS3, LDH3, DDI2, CRP2, BMP3M, MG3, FERR3, HEMDF, LFT3, ICA ####[address] ALT [Catalytic activity/Vol] 102 U/L High 0-34 [facility] Comment on above: Result Comment: The ALT test is performed by an updated assay method.Please note that the reference intervals have beenchanged and are now sex specific. Performed By: #### P HOS3, LDH3, DDI2, CRP2, BMP3M, MG3, FERR3, HEMDF, LFT3, ICA ####[id number] [place], [place] AST [Catalytic activity/Vol] 55 U/L High 15-46 [facility] Comment on above: Performed By: #### P HOS3, LDH3, DDI2, CRP2, BMP3M, MG3, FERR3, HEMDF, LFT3, ICA ####[id number] [place], [place] Bilirubin [Mass/Vol] 0.7 mg/dL Normal 0.2-1.3 [facility] Comment on above: Performed By: #### P HOS3, LDH3, DDI2, CRP2, BMP3M, MG3, FERR3, HEMDF, LFT3, ICA ####[address] [address] Bilirubin.indirect [Mass/Vol] 0.0 mg/dL Normal 0.0-0.3 [facility] Comment on above: Performed By: #### P HOS3, LDH3, DDI2, CRP2, BMP3M, MG3, FERR3, HEMDF, LFT3, ICA ####[address] Protein [Mass/Vol] 6.4 g/dL Normal 6.3-8.2 [facility] Comment on above: Performed By: #### P HOS3, LDH3, DDI2, CRP2, BMP3M, MG3, FERR3, HEMDF, LFT3, ICA ####[address] Albumin [Mass/Vol] 3.3 g/dL Low 3.5-5.0 [facility] Comment on above: Performed By: #### P HOS3, LDH3, DDI2, CRP2, BMP3M, MG3, FERR3, HEMDF, LFT3, ICA ####[address] [address] LDHon 06-17-2021 LDH 374 U/L High 120-246 [facility] Comment on above: Performed By: #### P HOS3, LDH3, DDI2, CRP2, BMP3M, MG3, FERR3, HEMDF, LFT3, ICA ####[address] [address] Magnesiumon 06-17-2021 Magnesium [Mass/Vol] 2.5 mg/dL High 1.6-2.3 [facility] Comment on above: Performed By: #### P HOS3, LDH3, DDI2, CRP2, BMP3M, MG3, FERR3, HEMDF, LFT3, ICA ####[address] [address] Phosphoruson 06-17-2021 Phosphate [Mass/Vol] 4.1 mg/dL Normal 2.5-4.5 [facility] Comment on above: Performed By: #### P HOS3, LDH3, DDI2, CRP2, BMP3M, MG3, FERR3, HEMDF, LFT3, ICA ####[id number] [place], [place] Arterial Blood Gaseson 06-16 CO2 [Moles/Vol] 32.9 mmol/L High 23.0-27.0 [facility] Comment on above: Performed By: #### A BG ####[address] [place], [place] HCO3 (Bld) [Moles/Vol] 31.6 mmol/L High 21.0-25.0 [facility] Comment on above: Performed By: #### A BG ####[address] Hemoglobin (Bld) [Mass/Vol] 12.7 g/dL Normal ScreenOnly [facility] Comment on above: Performed By: #### A BG ####[address] [place], [place] Oxygen (Bld) [Partial pressure] 84.9 mm[Hg] Normal 80.0-100.0 [facility] Comment on above: Performed By: #### A BG ####[address] Oxygen saturation in Blood 95.6 % Normal 95.0-100.0 [facility] Comment on above: Performed By: #### A BG ####[address] pCO2 42.5 mm[Hg] Normal 35.0-45.0 [facility] Comment on above: Performed By: #### A BG ####[address] pH 7.489 High 7.350-7.450 [facility] Comment on above: Performed By: #### A BG ####[address] [place], [place] Std Base Excess 7.5 mmol/L High -3.0-3.0 [facility] Comment on above: Performed By: #### A BG ####[address] [place], [place] FIO2 No data Normal [facility] Comment on above: Performed By: #### A BG ####[address] [place], [place] Basic Metabolic Panelon 07- Chloride [Moles/Vol] 107 mmol/L Normal 98-107 [facility] Comment on above: Performed By: #### C RP2, BMP3M, FERR3, LDH3, DDI2, MG3, ICA, LFT3, PHOS3 ####[address] [place], [place] Sodium [Moles/Vol] 145 mmol/L Normal 135-145 [facility] Comment on above: Performed By: #### C RP2, BMP3M, FERR3, LDH3, DDI2, MG3, ICA, LFT3, PHOS3 ####[address] [place], [place] Calcium [Mass/Vol] 8.8 mg/dL Normal 8.4-10.4 [facility] Comment on above: Performed By: #### C RP2, BMP3M, FERR3, LDH3, DDI2, MG3, ICA, LFT3, PHOS3 ####[address] [place], [place] Anion gap [Moles/Vol] 6 mmol/L Normal 3-13 [facility] Comment on above: Performed By: #### C RP2, BMP3M, FERR3, LDH3, DDI2, MG3, ICA, LFT3, PHOS3 ####[address] [place] CO2 [Moles/Vol] 32 mmol/L High 22-30 [facility] Comment on above: Performed By: #### C RP2, BMP3M, FERR3, LDH3, DDI2, MG3, ICA, LFT3, PHOS3 ####[address] [place], [place] Glucose [Mass/Vol] 223 mg/dL High 70-100 [facility] Comment on above: Performed By: #### C RP2, BMP3M, FERR3, LDH3, DDI2, MG3, ICA, LFT3, PHOS3 ####[address] [place], [place] Urea nitrogen [Mass/Vol] 56 mg/dL High 7-20 [facility] Comment on above: Performed By: #### C RP2, BMP3M, FERR3, LDH3, DDI2, MG3, ICA, LFT3, PHOS3 ####[address] [place], [place] Creatinine [Mass/Vol] 0.90 mg/dL Normal 0.52-1.25 [facility] Comment on above: Performed By: #### C RP2, BMP3M, FERR3, LDH3, DDI2, MG3, ICA, LFT3, PHOS3 ####[address] [place], [place] GFR/1.73 sq M.predicted among blacks MDRD (S/P/Bld) [Vol rate/Area] 84.4 mL/min/{1.73_m2} Normal >60 [facility] Comment on above: Performed By: #### C RP2, BMP3M, FERR3, LDH3, DDI2, MG3, ICA, LFT3, PHOS3 ####[address] [place], [place] GFR/1.73 sq M.predicted among non-blacks MDRD (S/P/Bld) [Vol rate/Area] 72.8 mL/min/{1.73_m2} Normal >60 [facility] Comment on above: Result Comment: KDIG O guidelines provide the following GFR categories:Stage GFR(ml/min/1.73 m2) TermsG1 >=90 Normal or highG2 60-89 Mildly decreased*G3a 45-59 Mildly to moderately nrufebcuhQ1s 30-44 Moderately to severely decreasedG4 15-29 Severely [...] FERR3, LDH3, DDI2, MG3, ICA, LFT3, PHOS3 ####[address] [place], [place] Potassium [Moles/Vol] 4.2 mmol/L Normal 3.5-5.1 [facility] Comment on above: Performed By: #### C RP2, BMP3M, FERR3, LDH3, DDI2, MG3, ICA, LFT3, PHOS3 ####[address] [place], [place] C-Reactive Proteinon 021 CRP [Mass/Vol] 7.8 mg/L High 0.0-6.0 [facility] Comment on above: Result Comment: . Performed By: #### C RP2, BMP3M, FERR3, LDH3, DDI2, MG3, ICA, LFT3, PHOS3 ####[address] [place] [address] CR Chest Portableon 06-16-20 CR Chest Portable Normal [facility] CR Chest Portable Normal [facility] Calcium,Ionizedon 06-16-2021 Ionized Ca,Measured 4.40 mg/dL Normal 4.30-5.20 [facility] Comment on above: Performed By: #### C RP2, BMP3M, FERR3, LDH3, DDI2, MG3, ICA, LFT3, PHOS3 ####[address] pH, Ionized Calcium 7.51 High 7.31-7.46 [facility] Comment on above: Performed By: #### C RP2, BMP3M, FERR3, LDH3, DDI2, MG3, ICA, LFT3, PHOS3 ####[address] [place], [place] Complete Urinalysison 2020 Appearance (U) Ex.Turbid Abnormal Clear [facility] Comment on above: Result Comment: . Performed By: #### C UA2 ####[address] Bacteria Moderate Abnormal Negative [facility] Comment on above: Result Comment: . Performed By: #### C UA2 ####[address] Bilirubin,Urine Negative Normal Negative [facility] Comment on above: Result Comment: . Performed By: #### C UA2 ####[address] Color (U) Light-Yellow Normal Lt. Yellow [facility] Comment on above: Result Comment: . Performed By: #### C UA2 ####[address] Glucose Ql (U) Normal Normal Normal (<70) [facility] Comment on above: Result Comment: . Performed By: #### C UA2 ####[address] Ketone,Urine Negative Normal Negative [facility] Comment on above: Result Comment: . Performed By: #### C UA2 ####[address] Leukocytes,Urine 250 [place]/uL Abnormal Negative [facility] Comment on above: Result Comment: . Performed By: #### C UA2 ####[address] Mucous Threads Many Abnormal Negative [facility] Comment on above: Result Comment: . Performed By: #### C UA2 ####[address] [place], [place] Nitrites,Urine Negative Normal Negative [facility] Comment on above: Result Comment: . Performed By: #### C UA2 ####[address] [place], [place] Occult Blood,Urine > 1.0 Abnormal Negative [facility] Comment on above: Result Comment: . Performed By: #### C UA2 ####[address] [place], [place] pH,Urine 5.5 Normal 5.0-8.0 [facility] Comment on above: Result Comment: . Performed By: #### C UA2 ####[address] RBC LM.HPF (Urine sed) [#/Area] /[HPF] Abnormal 0-2 [facility] Comment on above: Result Comment: . Performed By: #### C UA2 ####[address] Specific [place],Urine 1.008 Normal 1.005 - 1.030 [facility] Comment on above: Result Comment: . Performed By: #### C UA2 ####[address] Squamous Epithelial 0 - 2 Normal 3-5 [facility] Comment on above: Result Comment: . Performed By: #### C UA2 ####[address] [place], [place] Total Protein,Urine Negative Normal Negative [facility] Comment on above: Result Comment: . Performed By: #### C UA2 ####[address] Uric Acid Crystals Few Abnormal Negative [facility] Comment on above: Result Comment: . Performed By: #### C UA2 ####[address] Urobilinogen,Urine Normal Normal Normal (0-1) [facility] Comment on above: Result Comment: . Performed By: #### C UA2 ####[address] [address] WBC, Urine 11 - 25 Abnormal 0-5 [facility] Comment on above: Result Comment: . Performed By: #### C UA2 ####[address] [place] [address] D-Dimer, Innovanceon 06-16-2 021 D-Dimer, Innovance 23.52 mg/L High <0.19-0.50 [facility] Comment on above: Result Comment: Inno carrington D-Dimer values of <0.50 mg/L FEU can be used incombination with a pre-test probability model (e.g. Well's)to exclude pulmonary embolism (PE) disease, as well as jodi in the diagnosis of deep vein thrombosis (DVT). Performed By: #### C RP2, BMP3M, FERR3, LDH3, DDI2, MG3, ICA, LFT3, PHOS3 ####[address] [place] [address] Ferritinon 06-16-2021 Ferritin [Mass/Vol] 291 ng/mL High 8-252 [facility] Comment on above: Performed By: #### C RP2, BMP3M, FERR3, LDH3, DDI2, MG3, ICA, LFT3, PHOS3 ####[address] [place] [address] Glucose,Bedsideon 06-16-2021 Glucose [Mass/Vol] 252 mg/dL High 70-100 [facility] Comment on above: Result Comment: Test performed by glucose meter. Results may be 10%-15% lowerthan serum/plasma values. (CLIA ID [id number]) Performed By: #### B GLU ####[address] [place] [address] Glucose [Mass/Vol] 273 mg/dL High 70-100 [facility] Comment on above: Result Comment: Test performed by glucose meter. Results may be 10%-15% lowerthan serum/plasma values. (CLIA ID [id number]) Performed By: #### B GLU ####[address] [place], [place] Glucose [Mass/Vol] 220 mg/dL High 70-100 [facility] Comment on above: Result Comment: Test performed by glucose meter. Results may be 10%-15% lowerthan serum/plasma values. (CLIA ID [id number]) Performed By: #### B GLU ####[address] [place], [place] Glucose [Mass/Vol] 215 mg/dL High 70-100 [facility] Comment on above: Result Comment: Test performed by glucose meter. Results may be 10%-15% lowerthan serum/plasma values. (CLIA ID [id number]) Performed By: #### B GLU ####[address] [place], [place] Hepatic Functionon 1 Albumin [Mass/Vol] 3.4 g/dL Low 3.5-5.0 [facility] Comment on above: Performed By: #### C RP2, BMP3M, FERR3, LDH3, DDI2, MG3, ICA, LFT3, PHOS3 ####[address] [place] ALP [Catalytic activity/Vol] 83 U/L Normal 38-126 [facility] Comment on above: Performed By: #### C RP2, BMP3M, FERR3, LDH3, DDI2, MG3, ICA, LFT3, PHOS3 ####[address] [place], [place] ALT [Catalytic activity/Vol] 133 U/L High 0-34 [facility] Comment on above: Result Comment: The ALT test is performed by an updated assay method.Please note that the reference intervals have beenchanged and are now sex specific. Performed By: #### C RP2, BMP3M, FERR3, LDH3, DDI2, MG3, ICA, LFT3, PHOS3 ####[address] [place], [place] AST [Catalytic activity/Vol] 110 U/L High 15-46 [facility] Comment on above: Performed By: #### C RP2, BMP3M, FERR3, LDH3, DDI2, MG3, ICA, LFT3, PHOS3 ####[address] [place], [place] Bilirubin [Mass/Vol] 0.8 mg/dL Normal 0.2-1.3 [facility] Comment on above: Performed By: #### C RP2, BMP3M, FERR3, LDH3, DDI2, MG3, ICA, LFT3, PHOS3 ####[address] [place] Protein [Mass/Vol] 6.6 g/dL Normal 6.3-8.2 [facility] Comment on above: Performed By: #### C RP2, BMP3M, FERR3, LDH3, DDI2, MG3, ICA, LFT3, PHOS3 ####[address] [place] Bilirubin.indirect [Mass/Vol] 0.0 mg/dL Normal 0.0-0.3 [facility] Comment on above: Performed By: #### C RP2, BMP3M, FERR3, LDH3, DDI2, MG3, ICA, LFT3, PHOS3 ####[address] [place], [place] LDHon 06-16-2021 LDH 446 U/L High 120-246 [facility] Comment on above: Performed By: #### C RP2, BMP3M, FERR3, LDH3, DDI2, MG3, ICA, LFT3, PHOS3 ####[address] [place] Lactic Acidon 06-16-2021 Lactate [Moles/Vol] 0.9 mmol/L Normal 0.7-2.0 [facility] Comment on above: Performed By: #### L ACT3, PCAL ####[address] [place], [place] Magnesiumon 06-16-2021 Magnesium [Mass/Vol] 2.6 mg/dL High 1.6-2.3 [facility] Comment on above: Performed By: #### C RP2, BMP3M, FERR3, LDH3, DDI2, MG3, ICA, LFT3, PHOS3 ####[address] Phosphoruson 06-16-2021 Phosphate [Mass/Vol] 4.5 mg/dL Normal 2.5-4.5 [facility] Comment on above: Performed By: #### C RP2, BMP3M, FERR3, LDH3, DDI2, MG3, ICA, LFT3, PHOS3 ####[address] Procalcitoninon 06-16-2021 Procalcitonin 0.08 ng/mL Normal 0.00-0.09 [facility] Comment on above: Performed By: #### P OLESYA ####[address] Procalcitonin 0.08 ng/mL Normal 0.00-0.09 [facility] Comment on above: Performed By: #### L ACT3, PCAL ####[address] Interpretation See Below Normal [facility] Comment on above: Result Comment: PCT <0.50 = Low risk of severe sepsis and/or septic shock.PCT >2.00 = High risk of severe sepsis and/or septic shock. Performed By: #### P OLESYA ####[address] Interpretation See Below Normal [facility] Comment on above: Result Comment: PCT <0.50 = Low risk of severe sepsis and/or septic shock.PCT >2.00 = High risk of severe sepsis and/or septic shock. Performed By: #### L ACT3, PCAL ####[address] Sodiumon 06-16-2021 Sodium [Moles/Vol] 144 mmol/L Normal 135-145 [facility] Comment on above: Performed By: #### N A3 ####[id number] [place], [place] Staph Aureus Complete Nasalo n 06-16-2021 Staph Aureus Complete Nasal Normal [facility] Comment on above: Performed By: #### S APCR ####[address] Arterial Blood Gaseson 06-15 CO2 [Moles/Vol] 34.5 mmol/L High 23.0-27.0 [facility] Comment on above: Performed By: #### A BG ####[id number] [place], [place] HCO3 (Bld) [Moles/Vol] 33.2 mmol/L High 21.0-25.0 [facility] Comment on above: Performed By: #### A BG ####[address] Hemoglobin (Bld) [Mass/Vol] 13.3 g/dL Normal ScreenOnly [facility] Comment on above: Performed By: #### A BG ####[id number] [place], [place] Oxygen (Bld) [Partial pressure] 68.3 mm[Hg] Low 80.0-100.0 [facility] Comment on above: Performed By: #### A BG ####[address] Oxygen saturation in Blood 92.8 % Low 95.0-100.0 [facility] Comment on above: Performed By: #### A BG ####[address] [place], [place] pCO2 41.8 mm[Hg] Normal 35.0-45.0 [facility] Comment on above: Performed By: #### A BG ####[address] [place], [place] pH 7.518 High 7.350-7.450 [facility] Comment on above: Performed By: #### A BG ####[address] [place], [place] Std Base Excess 9.4 mmol/L High -3.0-3.0 [facility] Comment on above: Performed By: #### A BG ####[address], [place] FIO2 No data Normal [facility] Comment on above: Performed By: #### A BG ####[address], [place] Basic Metabolic Panelon 07- Calcium [Mass/Vol] 9.1 mg/dL Normal 8.4-10.4 [facility] Comment on above: Performed By: #### I CA, DDI2, PHOS3, CRP2, MG3, BMP3M, HEMDF, LFT3, LDH3, FERR3 ####[address] [place], [place] Glucose [Mass/Vol] 157 mg/dL High 70-100 [facility] Comment on above: Performed By: #### I CA, DDI2, PHOS3, CRP2, MG3, BMP3M, HEMDF, LFT3, LDH3, FERR3 ####[address] [place], [place] Anion gap [Moles/Vol] 5 mmol/L Normal 3-13 [facility] Comment on above: Performed By: #### I CA, DDI2, PHOS3, CRP2, MG3, BMP3M, HEMDF, LFT3, LDH3, FERR3 ####[facility] [place], [place] CO2 [Moles/Vol] 36 mmol/L High 22-30 [facility] Comment on above: Performed By: #### I CA, DDI2, PHOS3, CRP2, MG3, BMP3M, HEMDF, LFT3, LDH3, FERR3 ####[facility] [place], [place] Urea nitrogen [Mass/Vol] 51 mg/dL High 7-20 [facility] Comment on above: Performed By: #### I CA, DDI2, PHOS3, CRP2, MG3, BMP3M, HEMDF, LFT3, LDH3, FERR3 ####[address] [place] [address] Creatinine [Mass/Vol] 0.88 mg/dL Normal 0.52-1.25 [facility] Comment on above: Performed By: #### I CA, DDI2, PHOS3, CRP2, MG3, BMP3M, HEMDF, LFT3, LDH3, FERR3 ####[address] [place] [address] GFR/1.73 sq M.predicted among blacks MDRD (S/P/Bld) [Vol rate/Area] 86.7 mL/min/{1.73_m2} Normal >60 [facility] Comment on above: Performed By: #### I CA, DDI2, PHOS3, CRP2, MG3, BMP3M, HEMDF, LFT3, LDH3, FERR3 ####[address] [address] GFR/1.73 sq M.predicted among non-blacks MDRD (S/P/Bld) [Vol rate/Area] 74.8 mL/min/{1.73_m2} Normal >60 [facility] Comment on above: Result Comment: KDIG O guidelines provide the following GFR categories:Stage GFR(ml/min/1.73 m2) TermsG1 >=90 Normal or highG2 60-89 Mildly decreased*G3a 45-59 Mildly to moderately uxthsphxqW2g 30-44 Moderately to severely decreasedG4 15-29 Severely [...] CRP2, MG3, BMP3M, HEMDF, LFT3, LDH3, FERR3 ####[address] [place], [place] Potassium [Moles/Vol] 4.5 mmol/L Normal 3.5-5.1 [facility] Comment on above: Performed By: #### I CA, DDI2, PHOS3, CRP2, MG3, BMP3M, HEMDF, LFT3, LDH3, FERR3 ####[address] [place], [place] Sodium [Moles/Vol] 146 mmol/L High 135-145 [facility] Comment on above: Performed By: #### I CA, DDI2, PHOS3, CRP2, MG3, BMP3M, HEMDF, LFT3, LDH3, FERR3 ####[address] [place], [place] Chloride [Moles/Vol] 106 mmol/L Normal 98-107 [facility] Comment on above: Performed By: #### I CA, DDI2, PHOS3, CRP2, MG3, BMP3M, HEMDF, LFT3, LDH3, FERR3 ####[address] [place], [place] C-Reactive Proteinon 021 CRP [Mass/Vol] 7.0 mg/L High 0.0-6.0 [facility] Comment on above: Result Comment: . Performed By: #### I CA, DDI2, PHOS3, CRP2, MG3, BMP3M, HEMDF, LFT3, LDH3, FERR3 ####[address] [place] [address] CR Chest Portableon 06-15-20 21 CR Chest Portable Normal [facility] Calcium,Ionizedon 06-15-2021 Ionized Ca,Measured 4.00 mg/dL Low 4.30-5.20 [facility] Comment on above: Performed By: #### I CA, DDI2, PHOS3, CRP2, MG3, BMP3M, HEMDF, LFT3, LDH3, FERR3 ####[address] [place], [place] pH, Ionized Calcium 7.52 High 7.31-7.46 [facility] Comment on above: Performed By: #### I CA, DDI2, PHOS3, CRP2, MG3, BMP3M, HEMDF, LFT3, LDH3, FERR3 ####[address] [place], [place] D-Dimer, Innovanceon 021 D-Dimer, Innovance 25.22 mg/L High <0.19-0.50 [facility] Comment on above: Result Comment: Inno carrington D-Dimer values of <0.50 mg/L FEU can be used incombination with a pre-test probability model (e.g. Well's)to exclude pulmonary embolism (PE) disease, as well as jodi in the diagnosis of deep vein thrombosis (DVT). Performed By: #### I CA, DDI2, PHOS3, CRP2, MG3, BMP3M, HEMDF, LFT3, LDH3, FERR3 ####[address] [place], [place] Ferritinon 06-15-2021 Ferritin [Mass/Vol] 123 ng/mL Normal 8-252 [facility] Comment on above: Performed By: #### I CA, DDI2, PHOS3, CRP2, MG3, BMP3M, HEMDF, LFT3, LDH3, FERR3 ####[address] [place] [address] Glucose,Bedsideon 06-15-2021 Glucose [Mass/Vol] 163 mg/dL High 70-100 [facility] Comment on above: Result Comment: Test performed by glucose meter. Results may be 10%-15% lowerthan serum/plasma values. (CLIA ID [id number]) Performed By: #### B GLU ####[address] Glucose [Mass/Vol] 187 mg/dL High 70-100 [facility] Comment on above: Result Comment: Test performed by glucose meter. Results may be 10%-15% lowerthan serum/plasma values. (CLIA ID [id number]) Performed By: #### B GLU ####[address] [place] [address] Glucose [Mass/Vol] 148 mg/dL High 70-100 [facility] Comment on above: Result Comment: Test performed by glucose meter. Results may be 10%-15% lowerthan serum/plasma values. (CLIA ID [id number]) Performed By: #### B GLU ####[address] [place] [address] Glucose [Mass/Vol] 186 mg/dL High 70-100 [facility] Comment on above: Result Comment: Test performed by glucose meter. Results may be 10%-15% lowerthan serum/plasma values. (CLIA ID [id number]) Performed By: #### B GLU ####[address] Hemogram w/ Autodiffon 06-15 Abs Baso Cnt 0.0 10*3/uL Normal 0.0-0.2 [facility] Comment on above: Performed By: #### I CA, DDI2, PHOS3, CRP2, MG3, BMP3M, HEMDF, LFT3, LDH3, FERR3 ####[address] Abs Neutrophile Cnt 12.2 10*3/uL High 1.8-7.0 [facility] Comment on above: Performed By: #### I CA, DDI2, PHOS3, CRP2, MG3, BMP3M, HEMDF, LFT3, LDH3, FERR3 ####[address] [place] [address] Basophils/100 WBC (Bld) 0.2 % Normal 0.0-2.0 [facility] Comment on above: Performed By: #### I CA, DDI2, PHOS3, CRP2, MG3, BMP3M, HEMDF, LFT3, LDH3, FERR3 ####[address] Eosinophils (Bld) [#/Vol] 0.0 10*3/uL Normal 0.0-0.5 [facility] Comment on above: Performed By: #### I CA, DDI2, PHOS3, CRP2, MG3, BMP3M, HEMDF, LFT3, LDH3, FERR3 ####[address] Eosinophils/100 WBC (Bld) 0.0 % Low 1.0-6.0 [facility] Comment on above: Performed By: #### I CA, DDI2, PHOS3, CRP2, MG3, BMP3M, HEMDF, LFT3, LDH3, FERR3 ####[address] Erythrocyte distribution width (RBC) [Ratio] 21.8 % High 11.5-14.5 [facility] Comment on above: Performed By: #### I CA, DDI2, PHOS3, CRP2, MG3, BMP3M, HEMDF, LFT3, LDH3, FERR3 ####[address] Granulocytes/100 WBC (Bld) 84.4 % High 40.0-80.0 [facility] Comment on above: Performed By: #### I CA, DDI2, PHOS3, CRP2, MG3, BMP3M, HEMDF, LFT3, LDH3, FERR3 ####[address] Hematocrit (Bld) [Volume fraction] 39.6 % Normal 35.0-47.0 [facility] Comment on above: Performed By: #### I CA, DDI2, PHOS3, CRP2, MG3, BMP3M, HEMDF, LFT3, LDH3, FERR3 ####[address] Hemoglobin (Bld) [Mass/Vol] 12.4 g/dL Normal 11.7-16.0 [facility] Comment on above: Performed By: #### I CA, DDI2, PHOS3, CRP2, MG3, BMP3M, HEMDF, LFT3, LDH3, FERR3 ####[address] Lymphocytes (Bld) [#/Vol] 0.9 10*3/uL Low 1.0-4.3 [facility] Comment on above: Performed By: #### I CA, DDI2, PHOS3, CRP2, MG3, BMP3M, HEMDF, LFT3, LDH3, FERR3 ####[address] Lymphocytes/100 WBC (Bld) 6.3 % Low 20.0-40.0 [facility] Comment on above: Performed By: #### I CA, DDI2, PHOS3, CRP2, MG3, BMP3M, HEMDF, LFT3, LDH3, FERR3 ####[address] MCH (RBC) [Entitic mass] 22.8 pg Low 26.0-34.0 [facility] Comment on above: Performed By: #### I CA, DDI2, PHOS3, CRP2, MG3, BMP3M, HEMDF, LFT3, LDH3, FERR3 ####[address] MCHC 31.2 % Low 32.0-36.0 [facility] Comment on above: Performed By: #### I CA, DDI2, PHOS3, CRP2, MG3, BMP3M, HEMDF, LFT3, LDH3, FERR3 ####[address] MCV (RBC) [Entitic vol] 73.1 fL Low 79.0-98.0 [facility] Comment on above: Performed By: #### I CA, DDI2, PHOS3, CRP2, MG3, BMP3M, HEMDF, LFT3, LDH3, FERR3 ####[address] [place], [place] Monocytes (Bld) [#/Vol] 1.3 10*3/uL High 0.0-0.8 [facility] Comment on above: Performed By: #### I CA, DDI2, PHOS3, CRP2, MG3, BMP3M, HEMDF, LFT3, LDH3, FERR3 ####[address] [place], [place] Monocytes/100 WBC (Bld) 9.1 % Normal 2.0-10.0 [facility] Comment on above: Performed By: #### I CA, DDI2, PHOS3, CRP2, MG3, BMP3M, HEMDF, LFT3, LDH3, FERR3 ####[address] [place], [place] Platelet mean volume (Bld) [Entitic vol] 8.7 fL Normal 7.4-10.4 [facility] Comment on above: Performed By: #### I CA, DDI2, PHOS3, CRP2, MG3, BMP3M, HEMDF, LFT3, LDH3, FERR3 ####[address] [place], [place] Platelets (Bld) [#/Vol] 209 10*3/uL Normal 140-440 [facility] Comment on above: Performed By: #### I CA, DDI2, PHOS3, CRP2, MG3, BMP3M, HEMDF, LFT3, LDH3, FERR3 ####[address] [place], [place] RBC (Bld) [#/Vol] 5.42 10*6/uL High 3.80-5.20 [facility] Comment on above: Performed By: #### I CA, DDI2, PHOS3, CRP2, MG3, BMP3M, HEMDF, LFT3, LDH3, FERR3 ####[address] [place], [place] WBC (Bld) [#/Vol] 14.4 10*3/uL High 3.6-10.7 [facility] Comment on above: Performed By: #### I CA, DDI2, PHOS3, CRP2, MG3, BMP3M, HEMDF, LFT3, LDH3, FERR3 ####[address] [place], [place] Hepatic Functionon ALP [Catalytic activity/Vol] 87 U/L Normal 38-126 [facility] Comment on above: Performed By: #### I CA, DDI2, PHOS3, CRP2, MG3, BMP3M, HEMDF, LFT3, LDH3, FERR3 ####[address] [place], [place] ALT [Catalytic activity/Vol] 68 U/L High 0-34 [facility] Comment on above: Result Comment: The ALT test is performed by an updated assay method.Please note that the reference intervals have beenchanged and are now sex specific. Performed By: #### I CA, DDI2, PHOS3, CRP2, MG3, BMP3M, HEMDF, LFT3, LDH3, FERR3 ####[address] [place], [place] AST [Catalytic activity/Vol] 61 U/L High 15-46 [facility] Comment on above: Performed By: #### I CA, DDI2, PHOS3, CRP2, MG3, BMP3M, HEMDF, LFT3, LDH3, FERR3 ####[address] [place], [place] Bilirubin [Mass/Vol] 0.9 mg/dL Normal 0.2-1.3 [facility] Comment on above: Performed By: #### I CA, DDI2, PHOS3, CRP2, MG3, BMP3M, HEMDF, LFT3, LDH3, FERR3 ####[address] [place], [place] Bilirubin.indirect [Mass/Vol] 0.0 mg/dL Normal 0.0-0.3 [facility] Comment on above: Performed By: #### I CA, DDI2, PHOS3, CRP2, MG3, BMP3M, HEMDF, LFT3, LDH3, FERR3 ####[address] [place] [address] Protein [Mass/Vol] 6.9 g/dL Normal 6.3-8.2 [facility] Comment on above: Performed By: #### I CA, DDI2, PHOS3, CRP2, MG3, BMP3M, HEMDF, LFT3, LDH3, FERR3 ####[address] [place] [address] Albumin [Mass/Vol] 3.6 g/dL Normal 3.5-5.0 [facility] Comment on above: Performed By: #### I CA, DDI2, PHOS3, CRP2, MG3, BMP3M, HEMDF, LFT3, LDH3, FERR3 ####[address] [place] [address] LDHon 06-15-2021 LDH 446 U/L High 120-246 [facility] Comment on above: Performed By: #### I CA, DDI2, PHOS3, CRP2, MG3, BMP3M, HEMDF, LFT3, LDH3, FERR3 ####[address] [place] [address] Magnesiumon 06-15-2021 Magnesium [Mass/Vol] 2.5 mg/dL High 1.6-2.3 [facility] Comment on above: Performed By: #### I CA, DDI2, PHOS3, CRP2, MG3, BMP3M, HEMDF, LFT3, LDH3, FERR3 ####[address] [place] [address] Phosphoruson 06-15-2021 Phosphate [Mass/Vol] 4.2 mg/dL Normal 2.5-4.5 [facility] Comment on above: Performed By: #### I CA, DDI2, PHOS3, CRP2, MG3, BMP3M, HEMDF, LFT3, LDH3, FERR3 ####[address] [place] [address] STAIN GRAMon 06-15-2021 STAIN GRAM Normal [facility] Comment on above: Performed By: #### C S/RE ####[address] [place] [address] [address] [place], [place] #### S/GRM ####[address] [place], [place] VL Venous Duplex US Lower Ex t Bilateralon 06-15-2021 VL Venous Duplex US Lower Ext Bilateral Normal [facility] Arterial Blood Gaseson 06-14 CO2 [Moles/Vol] 33.3 mmol/L High 23.0-27.0 [facility] Comment on above: Performed By: #### A BG ####[address] HCO3 (Bld) [Moles/Vol] 32.0 mmol/L High 21.0-25.0 [facility] Comment on above: Performed By: #### A BG ####[address] Hemoglobin (Bld) [Mass/Vol] 12.4 g/dL Normal ScreenOnly [facility] Comment on above: Performed By: #### A BG ####[address] Oxygen (Bld) [Partial pressure] 83.7 mm[Hg] Normal 80.0-100.0 [facility] Comment on above: Performed By: #### A BG ####[address] Oxygen saturation in Blood 95.6 % Normal 95.0-100.0 [facility] Comment on above: Performed By: #### A BG ####[address] [place], [place] pCO2 41.9 mm[Hg] Normal 35.0-45.0 [facility] Comment on above: Performed By: #### A BG ####[address] pH 7.501 High 7.350-7.450 [facility] Comment on above: Performed By: #### A BG ####[address] [place], [place] Std Base Excess 8.1 mmol/L High -3.0-3.0 [facility] Comment on above: Performed By: #### A BG ####[address] [place], [place] FIO2 No data Normal [facility] Comment on above: Performed By: #### A BG ####[address] Basic Metabolic Panelon - Calcium [Mass/Vol] 9.1 mg/dL Normal 8.4-10.4 [facility] Comment on above: Performed By: #### F ERR3, CRP2, LDH3, LFT3, PHOS3, DDI2, BMP3M, ICA, MG3, HEMDF ####[address] Anion gap [Moles/Vol] 5 mmol/L Normal 3-13 [facility] Comment on above: Performed By: #### F ERR3, CRP2, LDH3, LFT3, PHOS3, DDI2, BMP3M, ICA, MG3, HEMDF ####[address] [place], [place] CO2 [Moles/Vol] 33 mmol/L High 22-30 [facility] Comment on above: Performed By: #### F ERR3, CRP2, LDH3, LFT3, PHOS3, DDI2, BMP3M, ICA, MG3, HEMDF ####[address] [place], [place] Glucose [Mass/Vol] 134 mg/dL High 70-100 [facility] Comment on above: Performed By: #### F ERR3, CRP2, LDH3, LFT3, PHOS3, DDI2, BMP3M, ICA, MG3, HEMDF ####[address] [place], [place] Urea nitrogen [Mass/Vol] 53 mg/dL High 7-20 [facility] Comment on above: Performed By: #### F ERR3, CRP2, LDH3, LFT3, PHOS3, DDI2, BMP3M, ICA, MG3, HEMDF ####[facility] [place], [place] Creatinine [Mass/Vol] 0.73 mg/dL Normal 0.52-1.25 [facility] Comment on above: Performed By: #### F ERR3, CRP2, LDH3, LFT3, PHOS3, DDI2, BMP3M, ICA, MG3, HEMDF ####[address] [place], [place] eGFR OTHER > 90.0 Normal >60 [facility] Comment on above: Result Comment: KDIG O guidelines provide the following GFR categories:Stage GFR(ml/min/1.73 m2) TermsG1 >=90 Normal or highG2 60-89 Mildly decreased*G3a 45-59 Mildly to moderately [id number] 30-44 Moderately to severely decreasedG4 15-29 Severely [...] LFT3, PHOS3, DDI2, BMP3M, ICA, MG3, HEMDF ####[facility] [place], [place] GFR/1.73 sq M.predicted among blacks MDRD (S/P/Bld) [Vol rate/Area] mL/min/{1.73_m2} Normal >60 [facility] Comment on above: Performed By: #### F ERR3, CRP2, LDH3, LFT3, PHOS3, DDI2, BMP3M, ICA, MG3, HEMDF ####[address] [place], [place] Potassium [Moles/Vol] 4.6 mmol/L Normal 3.5-5.1 [facility] Comment on above: Performed By: #### F ERR3, CRP2, LDH3, LFT3, PHOS3, DDI2, BMP3M, ICA, MG3, HEMDF ####[address] [place], [place] Sodium [Moles/Vol] 148 mmol/L High 135-145 [facility] Comment on above: Performed By: #### F ERR3, CRP2, LDH3, LFT3, PHOS3, DDI2, BMP3M, ICA, MG3, HEMDF ####[address] [place], [place] Chloride [Moles/Vol] 110 mmol/L High 98-107 [facility] Comment on above: Performed By: #### F ERR3, CRP2, LDH3, LFT3, PHOS3, DDI2, BMP3M, ICA, MG3, HEMDF ####[address] [place], [place] C-Reactive Proteinon 021 CRP [Mass/Vol] 6.8 mg/L High 0.0-6.0 [facility] Comment on above: Result Comment: . Performed By: #### F ERR3, CRP2, LDH3, LFT3, PHOS3, DDI2, BMP3M, ICA, MG3, HEMDF ####[address] [place], [place] CR Chest Portableon 06-14-20 21 CR [address] [facility] CULT./ST. RESPIRATORYon 05-30 CULT./ST. RESPIRATORY CULT./ST. RESPIRAT ORY --> Status: F Moderate normal respiratory pretty. Normal [facility] Comment on above: Performed By: #### C S/RE, S/GRM ####[address] [place] [address] Calcium,Ionizedon 06-14-2021 Ionized Ca,Measured 4.60 mg/dL Normal 4.30-5.20 [facility] Comment on above: Performed By: #### F ERR3, CRP2, LDH3, LFT3, PHOS3, DDI2, BMP3M, ICA, MG3, HEMDF ####[address] [place] [address] pH, Ionized Calcium 7.48 High 7.31-7.46 [facility] Comment on above: Performed By: #### F ERR3, CRP2, LDH3, LFT3, PHOS3, DDI2, BMP3M, ICA, MG3, HEMDF ####[address] [place] [address] D-Dimer, Innovanceon 06-14- 021 D-Dimer, Innovance 17.18 mg/L High <0.19-0.50 [facility] Comment on above: Result Comment: Inno carrington D-Dimer values of <0.50 mg/L FEU can be used incombination with a pre-test probability model (e.g. Well's)to exclude pulmonary embolism (PE) disease, as well as jodi in the diagnosis of deep vein thrombosis (DVT). Performed By: #### F ERR3, CRP2, LDH3, LFT3, PHOS3, DDI2, BMP3M, ICA, MG3, HEMDF ####[address] [place] [address] Ferritinon 06-14-2021 Ferritin [Mass/Vol] 46 ng/mL Normal 8-252 [facility] Comment on above: Performed By: #### F ERR3, CRP2, LDH3, LFT3, PHOS3, DDI2, BMP3M, ICA, MG3, HEMDF ####[facility] [place] [address] Glucose,Bedsideon 06-14-2021 Glucose [Mass/Vol] 209 mg/dL High 70-100 [facility] Comment on above: Result Comment: Test performed by glucose meter. Results may be 10%-15% lowerthan serum/plasma values. (CLIA ID [id number]) Performed By: #### B GLU ####[facility] [employer] [id number] [place] [address] Glucose [Mass/Vol] 186 mg/dL High 70-100 [facility] Comment on above: Result Comment: Test performed by glucose meter. Results may be 10%-15% lowerthan serum/plasma values. (CLIA ID [id number]) Performed By: #### B GLU ####[facility] [employer] [id number] [place] [address] Glucose [Mass/Vol] 138 mg/dL High 70-100 [facility] Comment on above: Result Comment: Test performed by glucose meter. Results may be 10%-15% lowerthan serum/plasma values. (CLIA ID [id number]) Performed By: #### B GLU ####[facility] [employer] [address] [address] Glucose [Mass/Vol] 122 mg/dL High 70-100 [facility] Comment on above: Result Comment: Test performed by glucose meter. Results may be 10%-15% lowerthan serum/plasma values. (CLIA ID [id number]) Performed By: #### B GLU ####[facility] [employer] [address] Hemogram w/ Autodiffon 06-14 Abs Baso Cnt 0.0 10*3/uL Normal 0.0-0.2 [facility] Comment on above: Performed By: #### F ERR3, CRP2, LDH3, LFT3, PHOS3, DDI2, BMP3M, ICA, MG3, HEMDF ####[facility] [employer] [id number] [place] [address] Abs Neutrophile Cnt 10.1 10*3/uL High 1.8-7.0 [facility] Comment on above: Performed By: #### F ERR3, CRP2, LDH3, LFT3, PHOS3, DDI2, BMP3M, ICA, MG3, HEMDF ####[address] [place], [place] Basophils/100 WBC (Bld) 0.2 % Normal 0.0-2.0 [facility] Comment on above: Performed By: #### F ERR3, CRP2, LDH3, LFT3, PHOS3, DDI2, BMP3M, ICA, MG3, HEMDF ####[address] [place], [place] Eosinophils (Bld) [#/Vol] 0.0 10*3/uL Normal 0.0-0.5 [facility] Comment on above: Performed By: #### F ERR3, CRP2, LDH3, LFT3, PHOS3, DDI2, BMP3M, ICA, MG3, HEMDF ####[address] [place], [place] Eosinophils/100 WBC (Bld) 0.1 % Low 1.0-6.0 [facility] Comment on above: Performed By: #### F ERR3, CRP2, LDH3, LFT3, PHOS3, DDI2, BMP3M, ICA, MG3, HEMDF ####[address] [place], [place] Erythrocyte distribution width (RBC) [Ratio] 21.4 % High 11.5-14.5 [facility] Comment on above: Performed By: #### F ERR3, CRP2, LDH3, LFT3, PHOS3, DDI2, BMP3M, ICA, MG3, HEMDF ####[address] [place], [place] Granulocytes/100 WBC (Bld) 82.3 % High 40.0-80.0 [facility] Comment on above: Performed By: #### F ERR3, CRP2, LDH3, LFT3, PHOS3, DDI2, BMP3M, ICA, MG3, HEMDF ####[address] [place], [place] Hematocrit (Bld) [Volume fraction] 38.3 % Normal 35.0-47.0 [facility] Comment on above: Performed By: #### F ERR3, CRP2, LDH3, LFT3, PHOS3, DDI2, BMP3M, ICA, MG3, HEMDF ####[address] [place] Hemoglobin (Bld) [Mass/Vol] 12.0 g/dL Normal 11.7-16.0 [facility] Comment on above: Performed By: #### F ERR3, CRP2, LDH3, LFT3, PHOS3, DDI2, BMP3M, ICA, MG3, HEMDF ####[address] [place] Lymphocytes (Bld) [#/Vol] 1.2 10*3/uL Normal 1.0-4.3 [facility] Comment on above: Performed By: #### F ERR3, CRP2, LDH3, LFT3, PHOS3, DDI2, BMP3M, ICA, MG3, HEMDF ####[address] [place], [place] Lymphocytes/100 WBC (Bld) 9.5 % Low 20.0-40.0 [facility] Comment on above: Performed By: #### F ERR3, CRP2, LDH3, LFT3, PHOS3, DDI2, BMP3M, ICA, MG3, HEMDF ####[id number] [place], [place] MCH (RBC) [Entitic mass] 22.4 pg Low 26.0-34.0 [facility] Comment on above: Performed By: #### F ERR3, CRP2, LDH3, LFT3, PHOS3, DDI2, BMP3M, ICA, MG3, HEMDF ####[id number] [place], [place] MCHC 31.3 % Low 32.0-36.0 [facility] Comment on above: Performed By: #### F ERR3, CRP2, LDH3, LFT3, PHOS3, DDI2, BMP3M, ICA, MG3, HEMDF ####[id number] [place], [place] MCV (RBC) [Entitic vol] 71.7 fL Low 79.0-98.0 [facility] Comment on above: Performed By: #### F ERR3, CRP2, LDH3, LFT3, PHOS3, DDI2, BMP3M, ICA, MG3, HEMDF ####[id number] [place], [place] Monocytes (Bld) [#/Vol] 1.0 10*3/uL High 0.0-0.8 [facility] Comment on above: Performed By: #### F ERR3, CRP2, LDH3, LFT3, PHOS3, DDI2, BMP3M, ICA, MG3, HEMDF ####[id number] [place], [place] Monocytes/100 WBC (Bld) 7.9 % Normal 2.0-10.0 [facility] Comment on above: Performed By: #### F ERR3, CRP2, LDH3, LFT3, PHOS3, DDI2, BMP3M, ICA, MG3, HEMDF ####[address] Platelet mean volume (Bld) [Entitic vol] 8.4 fL Normal 7.4-10.4 [facility] Comment on above: Performed By: #### F ERR3, CRP2, LDH3, LFT3, PHOS3, DDI2, BMP3M, ICA, MG3, HEMDF ####[address] Platelets (Bld) [#/Vol] 229 10*3/uL Normal 140-440 [facility] Comment on above: Performed By: #### F ERR3, CRP2, LDH3, LFT3, PHOS3, DDI2, BMP3M, ICA, MG3, HEMDF ####[id number] [place], [place] RBC (Bld) [#/Vol] 5.33 10*6/uL High 3.80-5.20 [facility] Comment on above: Performed By: #### F ERR3, CRP2, LDH3, LFT3, PHOS3, DDI2, BMP3M, ICA, MG3, HEMDF ####[id number] [place], [place] WBC (Bld) [#/Vol] 12.3 10*3/uL High 3.6-10.7 [facility] Comment on above: Performed By: #### F ERR3, CRP2, LDH3, LFT3, PHOS3, DDI2, BMP3M, ICA, MG3, HEMDF ####[address] Hepatic Functionon 1 ALT [Catalytic activity/Vol] 61 U/L High 0-34 [facility] Comment on above: Result Comment: The ALT test is performed by an updated assay method.Please note that the reference intervals have beenchanged and are now sex specific. Performed By: #### F ERR3, CRP2, LDH3, LFT3, PHOS3, DDI2, BMP3M, ICA, MG3, HEMDF ####[address] ALP [Catalytic activity/Vol] 89 U/L Normal 38-126 [facility] Comment on above: Performed By: #### F ERR3, CRP2, LDH3, LFT3, PHOS3, DDI2, BMP3M, ICA, MG3, HEMDF ####[id number] [place], [place] AST [Catalytic activity/Vol] 44 U/L Normal 15-46 [facility] Comment on above: Performed By: #### F ERR3, CRP2, LDH3, LFT3, PHOS3, DDI2, BMP3M, ICA, MG3, HEMDF ####[id number] [place], [place] Bilirubin [Mass/Vol] 0.6 mg/dL Normal 0.2-1.3 [facility] Comment on above: Performed By: #### F ERR3, CRP2, LDH3, LFT3, PHOS3, DDI2, BMP3M, ICA, MG3, HEMDF ####[address] Bilirubin.indirect [Mass/Vol] 0.0 mg/dL Normal 0.0-0.3 [facility] Comment on above: Performed By: #### F ERR3, CRP2, LDH3, LFT3, PHOS3, DDI2, BMP3M, ICA, MG3, HEMDF ####[address] Protein [Mass/Vol] 6.7 g/dL Normal 6.3-8.2 [facility] Comment on above: Performed By: #### F ERR3, CRP2, LDH3, LFT3, PHOS3, DDI2, BMP3M, ICA, MG3, HEMDF ####[address] Albumin [Mass/Vol] 3.5 g/dL Normal 3.5-5.0 [facility] Comment on above: Performed By: #### F ERR3, CRP2, LDH3, LFT3, PHOS3, DDI2, BMP3M, ICA, MG3, HEMDF ####[address] [place] [address] LDHon 06-14-2021 LDH 303 U/L High 120-246 [facility] Comment on above: Performed By: #### F ERR3, CRP2, LDH3, LFT3, PHOS3, DDI2, BMP3M, ICA, MG3, HEMDF ####[address] [place] [address] Magnesiumon 06-14-2021 Magnesium [Mass/Vol] 2.4 mg/dL High 1.6-2.3 [facility] Comment on above: Performed By: #### F ERR3, CRP2, LDH3, LFT3, PHOS3, DDI2, BMP3M, ICA, MG3, HEMDF ####[address] [address] Phosphoruson 06-14-2021 Phosphate [Mass/Vol] 4.3 mg/dL Normal 2.5-4.5 [facility] Comment on above: Performed By: #### F ERR3, CRP2, LDH3, LFT3, PHOS3, DDI2, BMP3M, ICA, MG3, HEMDF ####[address] Sodiumon 06-14-2021 Sodium [Moles/Vol] 148 mmol/L High 135-145 [facility] Comment on above: Performed By: #### N A3 ####[address] Arterial Blood Gaseson 06-13 CO2 [Moles/Vol] 32.9 mmol/L High 23.0-27.0 [facility] Comment on above: Performed By: #### A BG ####[address] HCO3 (Bld) [Moles/Vol] 31.6 mmol/L High 21.0-25.0 [facility] Comment on above: Performed By: #### A BG ####[address] Hemoglobin (Bld) [Mass/Vol] 12.0 g/dL Normal ScreenOnly [facility] Comment on above: Performed By: #### A BG ####[address] Oxygen (Bld) [Partial pressure] 63.5 mm[Hg] Low 80.0-100.0 [facility] Comment on above: Performed By: #### A BG ####[address] Oxygen saturation in Blood 92.1 % Low 95.0-100.0 [facility] Comment on above: Performed By: #### A BG ####[address] pCO2 43.4 mm[Hg] Normal 35.0-45.0 [facility] Comment on above: Performed By: #### A BG ####[address] pH 7.480 High 7.350-7.450 [facility] Comment on above: Performed By: #### A BG ####[address] [place], [place] Std Base Excess 7.3 mmol/L High -3.0-3.0 [facility] Comment on above: Performed By: #### A BG ####[address] [place], [place] FIO2 No data Normal [facility] Comment on above: Performed By: #### A BG ####[address] [address] [place], [place] CO2 [Moles/Vol] 36.5 mmol/L High 23.0-27.0 [facility] Comment on above: Performed By: #### A BG ####[address] HCO3 (Bld) [Moles/Vol] 35.1 mmol/L High 21.0-25.0 [facility] Comment on above: Performed By: #### A BG ####[address] [place], [place] Hemoglobin (Bld) [Mass/Vol] 12.5 g/dL Normal ScreenOnly [facility] Comment on above: Performed By: #### A BG ####[id number] [place], [place] Oxygen (Bld) [Partial pressure] 73.9 mm[Hg] Low 80.0-100.0 [facility] Comment on above: Performed By: #### A BG ####[address] Oxygen saturation in Blood 93.9 % Low 95.0-100.0 [facility] Comment on above: Performed By: #### A BG ####[address] [place], [place] pCO2 46.9 mm[Hg] High 35.0-45.0 [facility] Comment on above: Performed By: #### A BG ####[address] [place] pH 7.492 High 7.350-7.450 [facility] Comment on above: Performed By: #### A BG ####[address] [place], [place] Std Base Excess 10.4 mmol/L High -3.0-3.0 [facility] Comment on above: Performed By: #### A BG ####[address] [place], [place] FIO2 No data Normal [facility] Comment on above: Performed By: #### A BG ####[address] Basic Metabolic Panelon 07- Anion gap [Moles/Vol] 6 mmol/L Normal 3-13 [facility] Comment on above: Performed By: #### L FT3, MG3, FERR3, LDH3, PHOS3, HEMDF, BMP3M, ICA, CRP2, DDI2 ####[address] [address] [place], [place] Calcium [Mass/Vol] 8.9 mg/dL Normal 8.4-10.4 [facility] Comment on above: Performed By: #### L FT3, MG3, FERR3, LDH3, PHOS3, HEMDF, BMP3M, ICA, CRP2, DDI2 ####[address] [place], [place] CO2 [Moles/Vol] 32 mmol/L High 22-30 [facility] Comment on above: Performed By: #### L FT3, MG3, FERR3, LDH3, PHOS3, HEMDF, BMP3M, ICA, CRP2, DDI2 ####[address] [place], [place] Glucose [Mass/Vol] 131 mg/dL High 70-100 [facility] Comment on above: Performed By: #### L FT3, MG3, FERR3, LDH3, PHOS3, HEMDF, BMP3M, ICA, CRP2, DDI2 ####[facility] [place], [place] Urea nitrogen [Mass/Vol] 56 mg/dL High 7-20 [facility] Comment on above: Performed By: #### L FT3, MG3, FERR3, LDH3, PHOS3, HEMDF, BMP3M, ICA, CRP2, DDI2 ####[facility] [place], [place] Creatinine [Mass/Vol] 0.72 mg/dL Normal 0.52-1.25 [facility] Comment on above: Performed By: #### L FT3, MG3, FERR3, LDH3, PHOS3, HEMDF, BMP3M, ICA, CRP2, DDI2 ####[id number] [place], [place] eGFR OTHER > 90.0 Normal >60 [facility] Comment on above: Result Comment: KDIG O guidelines provide the following GFR categories:Stage GFR(ml/min/1.73 m2) TermsG1 >=90 Normal or highG2 60-89 Mildly decreased*G3a 45-59 Mildly to moderately [id number] 30-44 Moderately to severely decreasedG4 15-29 Severely [...] LDH3, PHOS3, HEMDF, BMP3M, ICA, CRP2, DDI2 ####[facility] [place], [place] GFR/1.73 sq M.predicted among blacks MDRD (S/P/Bld) [Vol rate/Area] mL/min/{1.73_m2} Normal >60 [facility] Comment on above: Performed By: #### L FT3, MG3, FERR3, LDH3, PHOS3, HEMDF, BMP3M, ICA, CRP2, DDI2 ####[address] Potassium [Moles/Vol] 4.5 mmol/L Normal 3.5-5.1 [facility] Comment on above: Performed By: #### L FT3, MG3, FERR3, LDH3, PHOS3, HEMDF, BMP3M, ICA, CRP2, DDI2 ####[address] Sodium [Moles/Vol] 149 mmol/L High 135-145 [facility] Comment on above: Performed By: #### L FT3, MG3, FERR3, LDH3, PHOS3, HEMDF, BMP3M, ICA, CRP2, DDI2 ####[address] Chloride [Moles/Vol] 111 mmol/L High 98-107 [facility] Comment on above: Performed By: #### L FT3, MG3, FERR3, LDH3, PHOS3, HEMDF, BMP3M, ICA, CRP2, DDI2 ####[address] C-Reactive Proteinon 021 CRP [Mass/Vol] 5.9 mg/L Normal 0.0-6.0 [facility] Comment on above: Result Comment: . Performed By: #### L FT3, MG3, FERR3, LDH3, PHOS3, HEMDF, BMP3M, ICA, CRP2, DDI2 ####[address] CR Chest Portableon 06-13-20 21 CR Chest Portable Normal [facility] Calcium,Ionizedon 06-13-2021 Ionized Ca,Measured 4.10 mg/dL Low 4.30-5.20 [facility] Comment on above: Performed By: #### L FT3, MG3, FERR3, LDH3, PHOS3, HEMDF, BMP3M, ICA, CRP2, DDI2 ####[facility] [employer] [id number] [place], [place] pH, Ionized Calcium 7.52 High 7.31-7.46 [facility] Comment on above: Performed By: #### L FT3, MG3, FERR3, LDH3, PHOS3, HEMDF, BMP3M, ICA, CRP2, DDI2 ####[facility] [employer] [id number] [place], [place] D-Dimer, Innovanceon 021 D-Dimer, Innovance 18.71 mg/L High <0.19-0.50 [facility] Comment on above: Result Comment: Inno carrington D-Dimer values of <0.50 mg/L FEU can be used incombination with a pre-test probability model (e.g. Well's)to exclude pulmonary embolism (PE) disease, as well as jodi in the diagnosis of deep vein thrombosis (DVT). Performed By: #### L FT3, MG3, FERR3, LDH3, PHOS3, HEMDF, BMP3M, ICA, CRP2, DDI2 ####[facility] [employer] [id number] [place], [place] Ferritinon 06-13-2021 Ferritin [Mass/Vol] 42 ng/mL Normal 8-252 [facility] Comment on above: Performed By: #### L FT3, MG3, FERR3, LDH3, PHOS3, HEMDF, BMP3M, ICA, CRP2, DDI2 ####[facility] [employer] [id number] [place], [place] Glucose,Bedsideon 06-13-2021 Glucose [Mass/Vol] 174 mg/dL High 70-100 [facility] Comment on above: Result Comment: Test performed by glucose meter. Results may be 10%-15% lowerthan serum/plasma values. (CLIA ID [id number]) Performed By: #### B GLU ####[facility] [employer] [id number] [place], [place] Glucose [Mass/Vol] 159 mg/dL High 70-100 [facility] Comment on above: Result Comment: Test performed by glucose meter. Results may be 10%-15% lowerthan serum/plasma values. (CLIA ID [id number]) Performed By: #### B GLU ####[address] [place], [place] Glucose [Mass/Vol] 129 mg/dL High 70-100 [facility] Comment on above: Result Comment: Test performed by glucose meter. Results may be 10%-15% lowerthan serum/plasma values. (CLIA ID [id number]) Performed By: #### B GLU ####[address] Hemogram w/ Autodiffon 06-13 Abs Baso Cnt 0.1 10*3/uL Normal 0.0-0.2 [facility] Comment on above: Performed By: #### L FT3, MG3, FERR3, LDH3, PHOS3, HEMDF, BMP3M, ICA, CRP2, DDI2 ####[address] Abs Neutrophile Cnt 9.9 10*3/uL High 1.8-7.0 [facility] Comment on above: Performed By: #### L FT3, MG3, FERR3, LDH3, PHOS3, HEMDF, BMP3M, ICA, CRP2, DDI2 ####[address] Basophils/100 WBC (Bld) 1.2 % Normal 0.0-2.0 [facility] Comment on above: Performed By: #### L FT3, MG3, FERR3, LDH3, PHOS3, HEMDF, BMP3M, ICA, CRP2, DDI2 ####[address] Eosinophils (Bld) [#/Vol] 0.0 10*3/uL Normal 0.0-0.5 [facility] Comment on above: Performed By: #### L FT3, MG3, FERR3, LDH3, PHOS3, HEMDF, BMP3M, ICA, CRP2, DDI2 ####[address] Eosinophils/100 WBC (Bld) 0.1 % Low 1.0-6.0 [facility] Comment on above: Performed By: #### L FT3, MG3, FERR3, LDH3, PHOS3, HEMDF, BMP3M, ICA, CRP2, DDI2 ####[address] Erythrocyte distribution width (RBC) [Ratio] 21.1 % High 11.5-14.5 [facility] Comment on above: Performed By: #### L FT3, MG3, FERR3, LDH3, PHOS3, HEMDF, BMP3M, ICA, CRP2, DDI2 ####[address] Granulocytes/100 WBC (Bld) 80.6 % High 40.0-80.0 [facility] Comment on above: Performed By: #### L FT3, MG3, FERR3, LDH3, PHOS3, HEMDF, BMP3M, ICA, CRP2, DDI2 ####[address] Hematocrit (Bld) [Volume fraction] 36.4 % Normal 35.0-47.0 [facility] Comment on above: Performed By: #### L FT3, MG3, FERR3, LDH3, PHOS3, HEMDF, BMP3M, ICA, CRP2, DDI2 ####[address] Hemoglobin (Bld) [Mass/Vol] 11.4 g/dL Low 11.7-16.0 [facility] Comment on above: Performed By: #### L FT3, MG3, FERR3, LDH3, PHOS3, HEMDF, BMP3M, ICA, CRP2, DDI2 ####[address] Lymphocytes (Bld) [#/Vol] 1.0 10*3/uL Normal 1.0-4.3 [facility] Comment on above: Performed By: #### L FT3, MG3, FERR3, LDH3, PHOS3, HEMDF, BMP3M, ICA, CRP2, DDI2 ####[address] Lymphocytes/100 WBC (Bld) 8.4 % Low 20.0-40.0 [facility] Comment on above: Performed By: #### L FT3, MG3, FERR3, LDH3, PHOS3, HEMDF, BMP3M, ICA, CRP2, DDI2 ####[address] MCH (RBC) [Entitic mass] 22.4 pg Low 26.0-34.0 [facility] Comment on above: Performed By: #### L FT3, MG3, FERR3, LDH3, PHOS3, HEMDF, BMP3M, ICA, CRP2, DDI2 ####[address] MCHC 31.4 % Low 32.0-36.0 [facility] Comment on above: Performed By: #### L FT3, MG3, FERR3, LDH3, PHOS3, HEMDF, BMP3M, ICA, CRP2, DDI2 ####[address] MCV (RBC) [Entitic vol] 71.4 fL Low 79.0-98.0 [facility] Comment on above: Performed By: #### L FT3, MG3, FERR3, LDH3, PHOS3, HEMDF, BMP3M, ICA, CRP2, DDI2 ####[address] Monocytes (Bld) [#/Vol] 1.2 10*3/uL High 0.0-0.8 [facility] Comment on above: Performed By: #### L FT3, MG3, FERR3, LDH3, PHOS3, HEMDF, BMP3M, ICA, CRP2, DDI2 ####[facility] [id number] [place], [place] Monocytes/100 WBC (Bld) 9.7 % Normal 2.0-10.0 [facility] Comment on above: Performed By: #### L FT3, MG3, FERR3, LDH3, PHOS3, HEMDF, BMP3M, ICA, CRP2, DDI2 ####[id number] [place], [place] Platelet mean volume (Bld) [Entitic vol] 8.3 fL Normal 7.4-10.4 [facility] Comment on above: Performed By: #### L FT3, MG3, FERR3, LDH3, PHOS3, HEMDF, BMP3M, ICA, CRP2, DDI2 ####[address] Platelets (Bld) [#/Vol] 243 10*3/uL Normal 140-440 [facility] Comment on above: Performed By: #### L FT3, MG3, FERR3, LDH3, PHOS3, HEMDF, BMP3M, ICA, CRP2, DDI2 ####[id number] [place], [place] RBC (Bld) [#/Vol] 5.10 10*6/uL Normal 3.80-5.20 [facility] Comment on above: Performed By: #### L FT3, MG3, FERR3, LDH3, PHOS3, HEMDF, BMP3M, ICA, CRP2, DDI2 ####[address] WBC (Bld) [#/Vol] 12.2 10*3/uL High 3.6-10.7 [facility] Comment on above: Performed By: #### L FT3, MG3, FERR3, LDH3, PHOS3, HEMDF, BMP3M, ICA, CRP2, DDI2 ####[address] Hepatic Functionon 1 ALP [Catalytic activity/Vol] 82 U/L Normal 38-126 [facility] Comment on above: Performed By: #### L FT3, MG3, FERR3, LDH3, PHOS3, HEMDF, BMP3M, ICA, CRP2, DDI2 ####[address] ALT [Catalytic activity/Vol] 62 U/L High 0-34 [facility] Comment on above: Result Comment: The ALT test is performed by an updated assay method.Please note that the reference intervals have beenchanged and are now sex specific. Performed By: #### L FT3, MG3, FERR3, LDH3, PHOS3, HEMDF, BMP3M, ICA, CRP2, DDI2 ####[address] AST [Catalytic activity/Vol] 36 U/L Normal 15-46 [facility] Comment on above: Performed By: #### L FT3, MG3, FERR3, LDH3, PHOS3, HEMDF, BMP3M, ICA, CRP2, DDI2 ####[address] Bilirubin [Mass/Vol] 0.5 mg/dL Normal 0.2-1.3 [facility] Comment on above: Performed By: #### L FT3, MG3, FERR3, LDH3, PHOS3, HEMDF, BMP3M, ICA, CRP2, DDI2 ####[address] Protein [Mass/Vol] 6.5 g/dL Normal 6.3-8.2 [facility] Comment on above: Performed By: #### L FT3, MG3, FERR3, LDH3, PHOS3, HEMDF, BMP3M, ICA, CRP2, DDI2 ####[address] Bilirubin.indirect [Mass/Vol] 0.0 mg/dL Normal 0.0-0.3 [facility] Comment on above: Performed By: #### L FT3, MG3, FERR3, LDH3, PHOS3, HEMDF, BMP3M, ICA, CRP2, DDI2 ####[address] [place], [place] Albumin [Mass/Vol] 3.3 g/dL Low 3.5-5.0 [facility] Comment on above: Performed By: #### L FT3, MG3, FERR3, LDH3, PHOS3, HEMDF, BMP3M, ICA, CRP2, DDI2 ####[address] [place] [address] LDHon 06-13-2021 LDH 272 U/L High 120-246 [facility] Comment on above: Performed By: #### L FT3, MG3, FERR3, LDH3, PHOS3, HEMDF, BMP3M, ICA, CRP2, DDI2 ####[address] Magnesiumon 06-13-2021 Magnesium [Mass/Vol] 2.5 mg/dL High 1.6-2.3 [facility] Comment on above: Performed By: #### L FT3, MG3, FERR3, LDH3, PHOS3, HEMDF, BMP3M, ICA, CRP2, DDI2 ####[address] PNEUMONIA PCR PANELon 2020 PNEUMONIA PCR PANEL Normal [facility] Comment on above: Performed By: #### B FPNE ####[address] Phosphoruson 06-13-2021 Phosphate [Mass/Vol] 4.4 mg/dL Normal 2.5-4.5 [facility] Comment on above: Performed By: #### L FT3, MG3, FERR3, LDH3, PHOS3, HEMDF, BMP3M, ICA, CRP2, DDI2 ####[address] Sodiumon 06-13-2021 Sodium [Moles/Vol] 148 mmol/L High 135-145 [facility] Comment on above: Performed By: #### N A3 ####[address] Sodium [Moles/Vol] 148 mmol/L High 135-145 [facility] Comment on above: Performed By: #### N A3 ####[address] Sodium [Moles/Vol] 150 mmol/L High 135-145 [facility] Comment on above: Performed By: #### N A3 ####[address] Arterial Blood Gaseson 06-12 CO2 [Moles/Vol] 34.1 mmol/L High 23.0-27.0 [facility] Comment on above: Performed By: #### A BG ####[address] HCO3 (Bld) [Moles/Vol] 32.6 mmol/L High 21.0-25.0 [facility] Comment on above: Performed By: #### A BG ####[address] Hemoglobin (Bld) [Mass/Vol] 12.3 g/dL Normal ScreenOnly [facility] Comment on above: Performed By: #### A BG ####[address] Oxygen (Bld) [Partial pressure] 60.5 mm[Hg] Low 80.0-100.0 [facility] Comment on above: Performed By: #### A BG ####[address] Oxygen saturation in Blood 90.5 % Low 95.0-100.0 [facility] Comment on above: Performed By: #### A BG ####[address] pCO2 46.2 mm[Hg] High 35.0-45.0 [facility] Comment on above: Performed By: #### A BG ####[address] pH 7.467 High 7.350-7.450 [facility] Comment on above: Performed By: #### A BG ####[address] [place], [place] Std Base Excess 7.9 mmol/L High -3.0-3.0 [facility] Comment on above: Performed By: #### A BG ####[address] [place], [place] FIO2 No data Normal [facility] Comment on above: Performed By: #### A BG ####[address] [place], [place] CO2 [Moles/Vol] 36.1 mmol/L High 23.0-27.0 [facility] Comment on above: Performed By: #### A BG ####[address] [place], [place] HCO3 (Bld) [Moles/Vol] 34.6 mmol/L High 21.0-25.0 [facility] Comment on above: Performed By: #### A BG ####[address] [place], [place] Hemoglobin (Bld) [Mass/Vol] 12.2 g/dL Normal ScreenOnly [facility] Comment on above: Performed By: #### A BG ####[address] [place], [place] Oxygen (Bld) [Partial pressure] 82.8 mm[Hg] Normal 80.0-100.0 [facility] Comment on above: Performed By: #### A BG ####[address] [place], [place] Oxygen saturation in Blood 95.3 % Normal 95.0-100.0 [facility] Comment on above: Performed By: #### A BG ####[address] [place], [place] pCO2 48.7 mm[Hg] High 35.0-45.0 [facility] Comment on above: Performed By: #### A BG ####[address] [place], [place] pH 7.469 High 7.350-7.450 [facility] Comment on above: Performed By: #### A BG ####[address] [place], [place] Std Base Excess 9.5 mmol/L High -3.0-3.0 [facility] Comment on above: Performed By: #### A BG ####[address] FIO2 40% Normal [facility] Comment on above: Performed By: #### A BG ####[address] Basic Metabolic Panelon 07- Calcium [Mass/Vol] 9.0 mg/dL Normal 8.4-10.4 [facility] Comment on above: Performed By: #### B MP3M, MG3, LFT3, HEMDF, PHOS3, DDI2, ICA, MDIFF, CRP2, FERR3, LDH3 ####[address] [place], [place] Glucose [Mass/Vol] 139 mg/dL High 70-100 [facility] Comment on above: Performed By: #### B MP3M, MG3, LFT3, HEMDF, PHOS3, DDI2, ICA, MDIFF, CRP2, FERR3, LDH3 ####[address] [place], [place] Urea nitrogen [Mass/Vol] 59 mg/dL High 7-20 [facility] Comment on above: Performed By: #### B MP3M, MG3, LFT3, HEMDF, PHOS3, DDI2, ICA, MDIFF, CRP2, FERR3, LDH3 ####[address] [place], [place] Anion gap [Moles/Vol] 4 mmol/L Normal 3-13 [facility] Comment on above: Performed By: #### B MP3M, MG3, LFT3, HEMDF, PHOS3, DDI2, ICA, MDIFF, CRP2, FERR3, LDH3 ####[address] [place], [place] CO2 [Moles/Vol] 34 mmol/L High 22-30 [facility] Comment on above: Performed By: #### B MP3M, MG3, LFT3, HEMDF, PHOS3, DDI2, ICA, MDIFF, CRP2, FERR3, LDH3 ####[address] [place], [place] Creatinine [Mass/Vol] 0.82 mg/dL Normal 0.52-1.25 [facility] Comment on above: Performed By: #### B MP3M, MG3, LFT3, HEMDF, PHOS3, DDI2, ICA, MDIFF, CRP2, FERR3, LDH3 ####[address] [place], [place] GFR/1.73 sq M.predicted among blacks MDRD (S/P/Bld) [Vol rate/Area] mL/min/{1.73_m2} Normal >60 [facility] Comment on above: Performed By: #### B MP3M, MG3, LFT3, HEMDF, PHOS3, DDI2, ICA, MDIFF, CRP2, FERR3, LDH3 ####[address] GFR/1.73 sq M.predicted among non-blacks MDRD (S/P/Bld) [Vol rate/Area] 81.5 mL/min/{1.73_m2} Normal >60 [facility] Comment on above: Result Comment: KDIG O guidelines provide the following GFR categories:Stage GFR(ml/min/1.73 m2) TermsG1 >=90 Normal or highG2 60-89 Mildly decreased*G3a 45-59 Mildly to moderately [id number] 30-44 Moderately to severely decreasedG4 15-29 Severely [...] PHOS3, DDI2, ICA, MDIFF, CRP2, FERR3, LDH3 ####[address] Potassium [Moles/Vol] 4.4 mmol/L Normal 3.5-5.1 [facility] Comment on above: Performed By: #### B MP3M, MG3, LFT3, HEMDF, PHOS3, DDI2, ICA, MDIFF, CRP2, FERR3, LDH3 ####[address] Chloride [Moles/Vol] 111 mmol/L High 98-107 [facility] Comment on above: Performed By: #### B MP3M, MG3, LFT3, HEMDF, PHOS3, DDI2, ICA, MDIFF, CRP2, FERR3, LDH3 ####[address] Sodium [Moles/Vol] 149 mmol/L High 135-145 [facility] Comment on above: Performed By: #### B MP3M, MG3, LFT3, HEMDF, PHOS3, DDI2, ICA, MDIFF, CRP2, FERR3, LDH3 ####[address] C-Reactive Proteinon 021 CRP [Mass/Vol] 6.1 mg/L High 0.0-6.0 [facility] Comment on above: Result Comment: . Performed By: #### B MP3M, MG3, LFT3, HEMDF, PHOS3, DDI2, ICA, MDIFF, CRP2, FERR3, LDH3 ####[address] CR Chest Portableon 06-12-20 21 CR [facility] Portable [facility] Calcium,Ionizedon 06-12-2021 Ionized Ca,Measured 4.70 mg/dL Normal 4.30-5.20 [facility] Comment on above: Performed By: #### B MP3M, MG3, LFT3, HEMDF, PHOS3, DDI2, ICA, MDIFF, CRP2, FERR3, LDH3 ####[facility] [employer] [id number] [place] [address] pH, Ionized Calcium 7.46 Normal 7.31-7.46 [facility] Comment on above: Performed By: #### B MP3M, MG3, LFT3, HEMDF, PHOS3, DDI2, ICA, MDIFF, CRP2, FERR3, LDH3 ####[facility] [employer] [id number] [place] [address] D-Dimer, Innovanceon 021 D-Dimer, [employer] 23.25 mg/L High <0.19-0.50 [facility] Comment on above: Result Comment: Inno [place] D-Dimer values of <0.50 mg/L FEU can be used incombination with a pre-test probability model (e.g. Well's)to exclude pulmonary embolism (PE) disease, as well as jodi in the diagnosis of deep vein thrombosis (DVT). Performed By: #### B MP3M, MG3, LFT3, HEMDF, PHOS3, DDI2, ICA, MDIFF, CRP2, FERR3, LDH3 ####[facility] [employer] [id number] [place] [address] Ferritinon 06-12-2021 Ferritin [Mass/Vol] 42 ng/mL Normal 8-252 [facility] Comment on above: Performed By: #### B MP3M, MG3, LFT3, HEMDF, PHOS3, DDI2, ICA, MDIFF, CRP2, FERR3, LDH3 ####[facility] [employer] [id number] [place] [address] Glucose,Bedsideon 06-12-2021 Glucose [Mass/Vol] 172 mg/dL High 70-100 [facility] Comment on above: Result Comment: Test performed by glucose meter. Results may be 10%-15% lowerthan serum/plasma values. (CLIA ID [id number]) Performed By: #### B GLU ####[facility] [employer] [id number] [place] [address] Glucose [Mass/Vol] 169 mg/dL High 70-100 [facility] Comment on above: Result Comment: Test performed by glucose meter. Results may be 10%-15% lowerthan serum/plasma values. (CLIA ID [id number]) Performed By: #### B GLU ####[facility] [employer] [id number] [place] [address] Glucose [Mass/Vol] 178 mg/dL High 70-100 [facility] Comment on above: Result Comment: Test performed by glucose meter. Results may be 10%-15% lowerthan serum/plasma values. (CLIA ID [id number]) Performed By: #### B GLU ####[facility] [employer] [id number] [place] [address] Glucose [Mass/Vol] 121 mg/dL High 70-100 [facility] Comment on above: Result Comment: Test performed by glucose meter. Results may be 10%-15% lowerthan serum/plasma values. (CLIA ID [id number]) Performed By: #### B GLU ####[facility] [employer] [id number] [place] [address] Glucose [Mass/Vol] 135 mg/dL High 70-100 [facility] Comment on above: Result Comment: Test performed by glucose meter. Results may be 10%-15% lowerthan serum/plasma values. (CLIA ID [id number]) Performed By: #### B GLU ####[facility] [employer] [id number] [place] [address] Hemogram w/ Autodiffon 06-12 Erythrocyte distribution width (RBC) [Ratio] 20.8 % High 11.5-14.5 [facility] Comment on above: Performed By: #### B MP3M, MG3, LFT3, HEMDF, PHOS3, DDI2, ICA, MDIFF, CRP2, FERR3, LDH3 ####[address] Hematocrit (Bld) [Volume fraction] 35.9 % Normal 35.0-47.0 [facility] Comment on above: Performed By: #### B MP3M, MG3, LFT3, HEMDF, PHOS3, DDI2, ICA, MDIFF, CRP2, FERR3, LDH3 ####[address] Hemoglobin (Bld) [Mass/Vol] 11.3 g/dL Low 11.7-16.0 [facility] Comment on above: Performed By: #### B MP3M, MG3, LFT3, HEMDF, PHOS3, DDI2, ICA, MDIFF, CRP2, FERR3, LDH3 ####[id number] [place], [place] MCH (RBC) [Entitic mass] 22.4 pg Low 26.0-34.0 [facility] Comment on above: Performed By: #### B MP3M, MG3, LFT3, HEMDF, PHOS3, DDI2, ICA, MDIFF, CRP2, FERR3, LDH3 ####[id number] [place], [place] MCHC 31.3 % Low 32.0-36.0 [facility] Comment on above: Performed By: #### B MP3M, MG3, LFT3, HEMDF, PHOS3, DDI2, ICA, MDIFF, CRP2, FERR3, LDH3 ####[address] MCV (RBC) [Entitic vol] 71.5 fL Low 79.0-98.0 [facility] Comment on above: Performed By: #### B MP3M, MG3, LFT3, HEMDF, PHOS3, DDI2, ICA, MDIFF, CRP2, FERR3, LDH3 ####[address] Platelet mean volume (Bld) [Entitic vol] 8.6 fL Normal 7.4-10.4 [facility] Comment on above: Performed By: #### B MP3M, MG3, LFT3, HEMDF, PHOS3, DDI2, ICA, MDIFF, CRP2, FERR3, LDH3 ####[id number] [place], [place] Platelets (Bld) [#/Vol] 266 10*3/uL Normal 140-440 [facility] Comment on above: Performed By: #### B MP3M, MG3, LFT3, HEMDF, PHOS3, DDI2, ICA, MDIFF, CRP2, FERR3, LDH3 ####[id number] [place], [place] RBC (Bld) [#/Vol] 5.03 10*6/uL Normal 3.80-5.20 [facility] Comment on above: Performed By: #### B MP3M, MG3, LFT3, HEMDF, PHOS3, DDI2, ICA, MDIFF, CRP2, FERR3, LDH3 ####[address] WBC (Bld) [#/Vol] 11.1 10*3/uL High 3.6-10.7 [facility] Comment on above: Performed By: #### B MP3M, MG3, LFT3, HEMDF, PHOS3, DDI2, ICA, MDIFF, CRP2, FERR3, LDH3 ####[id number] [place], [place] Hepatic Functionon 1 ALP [Catalytic activity/Vol] 82 U/L Normal 38-126 [facility] Comment on above: Performed By: #### B MP3M, MG3, LFT3, HEMDF, PHOS3, DDI2, ICA, MDIFF, CRP2, FERR3, LDH3 ####[id number] [place], [place] ALT [Catalytic activity/Vol] 61 U/L High 0-34 [facility] Comment on above: Result Comment: The ALT test is performed by an updated assay method.Please note that the reference intervals have beenchanged and are now sex specific. Performed By: #### B MP3M, MG3, LFT3, HEMDF, PHOS3, DDI2, ICA, MDIFF, CRP2, FERR3, LDH3 ####[address] AST [Catalytic activity/Vol] 42 U/L Normal 15-46 [facility] Comment on above: Performed By: #### B MP3M, MG3, LFT3, HEMDF, PHOS3, DDI2, ICA, MDIFF, CRP2, FERR3, LDH3 ####[address] Protein [Mass/Vol] 6.6 g/dL Normal 6.3-8.2 [facility] Comment on above: Performed By: #### B MP3M, MG3, LFT3, HEMDF, PHOS3, DDI2, ICA, MDIFF, CRP2, FERR3, LDH3 ####[address] Bilirubin [Mass/Vol] 0.5 mg/dL Normal 0.2-1.3 [facility] Comment on above: Performed By: #### B MP3M, MG3, LFT3, HEMDF, PHOS3, DDI2, ICA, MDIFF, CRP2, FERR3, LDH3 ####[address] Bilirubin.indirect [Mass/Vol] 0.0 mg/dL Normal 0.0-0.3 [facility] Comment on above: Performed By: #### B MP3M, MG3, LFT3, HEMDF, PHOS3, DDI2, ICA, MDIFF, CRP2, FERR3, LDH3 ####[address] Albumin [Mass/Vol] 3.4 g/dL Low 3.5-5.0 [facility] Comment on above: Performed By: #### B MP3M, MG3, LFT3, HEMDF, PHOS3, DDI2, ICA, MDIFF, CRP2, FERR3, LDH3 ####[id number] [place], [place] LDHon 06-12-2021 LDH 269 U/L High 120-246 [facility] Comment on above: Performed By: #### B MP3M, MG3, LFT3, HEMDF, PHOS3, DDI2, ICA, MDIFF, CRP2, FERR3, LDH3 ####[id number] [place], [place] Magnesiumon 06-12-2021 Magnesium [Mass/Vol] 2.4 mg/dL High 1.6-2.3 [facility] Comment on above: Performed By: #### B MP3M, MG3, LFT3, HEMDF, PHOS3, DDI2, ICA, MDIFF, CRP2, FERR3, LDH3 ####[address] Manual Diffon 06-12-2021 Abs Eosin Cnt 0.1 10*3/uL Normal 0.0-0.5 [facility] Comment on above: Performed By: #### B MP3M, MG3, LFT3, HEMDF, PHOS3, DDI2, ICA, MDIFF, CRP2, FERR3, LDH3 ####[address] Abs Lymph Cnt 0.8 10*3/uL Low 1.1-4.5 [facility] Comment on above: Performed By: #### B MP3M, MG3, LFT3, HEMDF, PHOS3, DDI2, ICA, MDIFF, CRP2, FERR3, LDH3 ####[address] Abs Monocyte Cnt 0.8 10*3/uL Normal 0.2-1.1 [facility] Comment on above: Performed By: #### B MP3M, MG3, LFT3, HEMDF, PHOS3, DDI2, ICA, MDIFF, CRP2, FERR3, LDH3 ####[address] Abs Neutrophile Cnt 9.4 10*3/uL High 2.2-8.2 [facility] Comment on above: Performed By: #### B MP3M, MG3, LFT3, HEMDF, PHOS3, DDI2, ICA, MDIFF, CRP2, FERR3, LDH3 ####[id number] [place], [place] Anisocytosis Slight Normal [facility] Comment on above: Performed By: #### B MP3M, MG3, LFT3, HEMDF, PHOS3, DDI2, ICA, MDIFF, CRP2, FERR3, LDH3 ####[id number] [place], [place] Elliptocytes Few Normal [facility] Comment on above: Performed By: #### B MP3M, MG3, LFT3, HEMDF, PHOS3, DDI2, ICA, MDIFF, CRP2, FERR3, LDH3 ####[address] [address] [place], [place] Eosinophils 1 % Normal 1-6 [facility] Comment on above: Performed By: #### B MP3M, MG3, LFT3, HEMDF, PHOS3, DDI2, ICA, MDIFF, CRP2, FERR3, LDH3 ####[id number] [place], [place] Lymphocytes 7 % Low 20-40 [facility] Comment on above: Performed By: #### B MP3M, MG3, LFT3, HEMDF, PHOS3, DDI2, ICA, MDIFF, CRP2, FERR3, LDH3 ####[id number] [place], [place] Microcytosis Slight Normal [facility] Comment on above: Performed By: #### B MP3M, MG3, LFT3, HEMDF, PHOS3, DDI2, ICA, MDIFF, CRP2, FERR3, LDH3 ####[id number] [place], [place] Monocytes 7 % Normal 2-10 [facility] Comment on above: Performed By: #### B MP3M, MG3, LFT3, HEMDF, PHOS3, DDI2, ICA, MDIFF, CRP2, FERR3, LDH3 ####[address] Ovalocytes Slight Normal [facility] Comment on above: Performed By: #### B MP3M, MG3, LFT3, HEMDF, PHOS3, DDI2, ICA, MDIFF, CRP2, FERR3, LDH3 ####[address] Poikilocytosis Slight Normal [facility] Comment on above: Performed By: #### B MP3M, MG3, LFT3, HEMDF, PHOS3, DDI2, ICA, MDIFF, CRP2, FERR3, LDH3 ####[address] RBC Morphology ABNORMAL Normal [facility] Comment on above: Performed By: #### B MP3M, MG3, LFT3, HEMDF, PHOS3, DDI2, ICA, MDIFF, CRP2, FERR3, LDH3 ####[address] Seg Neutrophils 85 % High 40-80 [facility] Comment on above: Performed By: #### B MP3M, MG3, LFT3, HEMDF, PHOS3, DDI2, ICA, MDIFF, CRP2, FERR3, LDH3 ####[address] Abs Baso Cnt 0.0 10*3/uL Normal 0.0-0.2 [facility] Comment on above: Performed By: #### B MP3M, MG3, LFT3, HEMDF, PHOS3, DDI2, ICA, MDIFF, CRP2, FERR3, LDH3 ####[address] Bands 0 % Normal 0-3 [facility] Comment on above: Performed By: #### B MP3M, MG3, LFT3, HEMDF, PHOS3, DDI2, ICA, MDIFF, CRP2, FERR3, LDH3 ####[id number] [place], [place] Basophils 0 % Normal 0-2 [facility] Comment on above: Performed By: #### B MP3M, MG3, LFT3, HEMDF, PHOS3, DDI2, ICA, MDIFF, CRP2, FERR3, LDH3 ####[address] [place], [place] Cells counted 100 Normal [facility] Comment on above: Performed By: #### B MP3M, MG3, LFT3, HEMDF, PHOS3, DDI2, ICA, MDIFF, CRP2, FERR3, LDH3 ####[id number] [place], [place] Phosphoruson 06-12-2021 Phosphate [Mass/Vol] 4.3 mg/dL Normal 2.5-4.5 [facility] Comment on above: Performed By: #### B MP3M, MG3, LFT3, HEMDF, PHOS3, DDI2, ICA, MDIFF, CRP2, FERR3, LDH3 ####[id number] [place], [place] STAIN GRAMon 06-12-2021 STAIN GRAM STAIN GRAM --> Statu s: F Many polymorphonuclear cells/lpf. Rare epithelial cells/lpf. Few gram positive cocci in pairs and chains. Few yeast. Rare epithelial cells/lpf. Few gram positive cocci in pairs and chains. Few yeast. Normal [facility] Comment on above: Performed By: #### C S/RE, S/GRM ####[address] [place], [place] Sodiumon 06-12-2021 Sodium [Moles/Vol] 146 mmol/L High 135-145 [facility] Comment on above: Performed By: #### N A3 ####[address] [place], [place] Sodium [Moles/Vol] 146 mmol/L High 135-145 [facility] Comment on above: Performed By: #### N A3 ####[address] [place], [place] Sodium [Moles/Vol] 148 mmol/L High 135-145 [facility] Comment on above: Performed By: #### N A3 ####[address] [place], [place] Arterial Blood Gaseson 06-11 CO2 [Moles/Vol] 34.0 mmol/L High 23.0-27.0 [facility] Comment on above: Performed By: #### A BG ####[address] [place], [place] HCO3 (Bld) [Moles/Vol] 32.5 mmol/L High 21.0-25.0 [facility] Comment on above: Performed By: #### A BG ####[address] [address] [place], [place] Hemoglobin (Bld) [Mass/Vol] 11.6 g/dL Normal ScreenOnly [facility] Comment on above: Performed By: #### A BG ####[address] [place], [place] Oxygen (Bld) [Partial pressure] 72.4 mm[Hg] Low 80.0-100.0 [facility] Comment on above: Performed By: #### A BG ####[address] [place], [place] Oxygen saturation in Blood 93.8 % Low 95.0-100.0 [facility] Comment on above: Performed By: #### A BG ####[address] [place], [place] pCO2 48.1 mm[Hg] High 35.0-45.0 [facility] Comment on above: Performed By: #### A BG ####[address] [place], [place] pH 7.448 Normal 7.350-7.450 [facility] Comment on above: Performed By: #### A BG ####[address], [place] Std Base Excess 7.5 mmol/L High -3.0-3.0 [facility] Comment on above: Performed By: #### A BG ####[address] FIO2 .40 Normal [facility] Comment on above: Performed By: #### A BG ####[address] CO2 [Moles/Vol] 33.8 mmol/L High 23.0-27.0 [facility] Comment on above: Performed By: #### A BG ####[address] HCO3 (Bld) [Moles/Vol] 32.4 mmol/L High 21.0-25.0 [facility] Comment on above: Performed By: #### A BG ####[address] Hemoglobin (Bld) [Mass/Vol] 11.3 g/dL Normal ScreenOnly [facility] Comment on above: Performed By: #### A BG ####[address] Oxygen (Bld) [Partial pressure] 78.2 mm[Hg] Low 80.0-100.0 [facility] Comment on above: Performed By: #### A BG ####[address] Oxygen saturation in Blood 95.3 % Normal 95.0-100.0 [facility] Comment on above: Performed By: #### A BG ####[address] pCO2 46.2 mm[Hg] High 35.0-45.0 [facility] Comment on above: Performed By: #### A BG ####[address] pH 7.464 High 7.350-7.450 [facility] Comment on above: Performed By: #### A BG ####[address] [place], [place] Std Base Excess 7.7 mmol/L High -3.0-3.0 [facility] Comment on above: Performed By: #### A BG ####[address] [place], [place] FIO2 40% Normal [facility] Comment on above: Performed By: #### A BG ####[address] [place], [place] Basic Metabolic Panelon 07-12 02-2020 Calcium [Mass/Vol] 8.8 mg/dL Normal 8.4-10.4 [facility] Comment on above: Performed By: #### L FT3, FERR3, DDI2, PHOS3, MG3, ICA, CRP2, BMP3M, LDH3, HEMDF ####[address] [place], [place] Anion gap [Moles/Vol] 6 mmol/L Normal 3-13 [facility] Comment on above: Performed By: #### L FT3, FERR3, DDI2, PHOS3, MG3, ICA, CRP2, BMP3M, LDH3, HEMDF ####[address] [place], [place] CO2 [Moles/Vol] 32 mmol/L High 22-30 [facility] Comment on above: Performed By: #### L FT3, FERR3, DDI2, PHOS3, MG3, ICA, CRP2, BMP3M, LDH3, HEMDF ####[address] [place], [place] Glucose [Mass/Vol] 133 mg/dL High 70-100 [facility] Comment on above: Performed By: #### L FT3, FERR3, DDI2, PHOS3, MG3, ICA, CRP2, BMP3M, LDH3, HEMDF ####[address] [place], [place] Urea nitrogen [Mass/Vol] 66 mg/dL High 7-20 [facility] Comment on above: Performed By: #### L FT3, FERR3, DDI2, PHOS3, MG3, ICA, CRP2, BMP3M, LDH3, HEMDF ####[address] [place] [address] Creatinine [Mass/Vol] 0.76 mg/dL Normal 0.52-1.25 [facility] Comment on above: Performed By: #### L FT3, FERR3, DDI2, PHOS3, MG3, ICA, CRP2, BMP3M, LDH3, HEMDF ####[address] [place] [address] GFR/1.73 sq M.predicted among blacks MDRD (S/P/Bld) [Vol rate/Area] mL/min/{1.73_m2} Normal >60 [facility] Comment on above: Performed By: #### L FT3, FERR3, DDI2, PHOS3, MG3, ICA, CRP2, BMP3M, LDH3, HEMDF ####[address] [place] [address] GFR/1.73 sq M.predicted among non-blacks MDRD (S/P/Bld) [Vol rate/Area] 89.4 mL/min/{1.73_m2} Normal >60 [facility] Comment on above: Result Comment: KDIG O guidelines provide the following GFR categories:Stage GFR(ml/min/1.73 m2) TermsG1 >=90 Normal or highG2 60-89 Mildly decreased*G3a 45-59 Mildly to moderately [id number] 30-44 Moderately to severely decreasedG4 15-29 Severely [...] PHOS3, MG3, ICA, CRP2, BMP3M, LDH3, HEMDF ####[address] [place], [place] Potassium [Moles/Vol] 4.6 mmol/L Normal 3.5-5.1 [facility] Comment on above: Performed By: #### L FT3, FERR3, DDI2, PHOS3, MG3, ICA, CRP2, BMP3M, LDH3, HEMDF ####[address] [place], [place] Chloride [Moles/Vol] 110 mmol/L High 98-107 [facility] Comment on above: Performed By: #### L FT3, FERR3, DDI2, PHOS3, MG3, ICA, CRP2, BMP3M, LDH3, HEMDF ####[address] Sodium [Moles/Vol] 147 mmol/L High 135-145 [facility] Comment on above: Performed By: #### L FT3, FERR3, DDI2, PHOS3, MG3, ICA, CRP2, BMP3M, LDH3, HEMDF ####[address] C-Reactive Proteinon 021 CRP [Mass/Vol] 6.0 mg/L Normal 0.0-6.0 [facility] Comment on above: Result Comment: . Performed By: #### L FT3, FERR3, DDI2, PHOS3, MG3, ICA, CRP2, BMP3M, LDH3, HEMDF ####[address] CR Chest Portableon 06-11-20 21 CR Chest Portable Normal [facility] Calcium,Ionizedon 06-11-2021 Ionized Ca,Measured 4.20 mg/dL Low 4.30-5.20 [facility] Comment on above: Performed By: #### L FT3, FERR3, DDI2, PHOS3, MG3, ICA, CRP2, BMP3M, LDH3, HEMDF ####[facility] [employer] [id number] [place], [place] pH, Ionized Calcium 7.51 High 7.31-7.46 [facility] Comment on above: Performed By: #### L FT3, FERR3, DDI2, PHOS3, MG3, ICA, CRP2, BMP3M, LDH3, HEMDF ####[facility] [employer] [id number] [place], [place] D-Dimer, Innovanceon 06-11- 021 D-Dimer, Innovance 18.90 mg/L High <0.19-0.50 [facility] Comment on above: Result Comment: Inno car[place] D-Dimer values of <0.50 mg/L FEU can be used incombination with a pre-test probability model (e.g. Well's)to exclude pulmonary embolism (PE) disease, as well as jodi in the diagnosis of deep vein thrombosis (DVT). Performed By: #### L FT3, FERR3, DDI2, PHOS3, MG3, ICA, CRP2, BMP3M, LDH3, HEMDF ####[facility] [employer] [id number] [place], [place] Ferritinon 06-11-2021 Ferritin [Mass/Vol] 43 ng/mL Normal 8-252 [facility] Comment on above: Performed By: #### L FT3, FERR3, DDI2, PHOS3, MG3, ICA, CRP2, BMP3M, LDH3, HEMDF ####[facility] [employer] [id number] [place], [place] Glucose,Bedsideon 06-11-2021 Glucose [Mass/Vol] 154 mg/dL High 70-100 [facility] Comment on above: Result Comment: Test performed by glucose meter. Results may be 10%-15% lowerthan serum/plasma values. (CLIA ID [id number]) Performed By: #### B GLU ####[facility] [employer] [id number] [place], [place] Glucose [Mass/Vol] 184 mg/dL High 70-100 [facility] Comment on above: Result Comment: Test performed by glucose meter. Results may be 10%-15% lowerthan serum/plasma values. (CLIA ID [id number]) Performed By: #### B GLU ####[address] [place], [place] Glucose [Mass/Vol] 125 mg/dL High 70-100 [facility] Comment on above: Result Comment: Test performed by glucose meter. Results may be 10%-15% lowerthan serum/plasma values. (CLIA ID [id number]) Performed By: #### B GLU ####[address] [place], [place] Glucose [Mass/Vol] 138 mg/dL High 70-100 [facility] Comment on above: Result Comment: Test performed by glucose meter. Results may be 10%-15% lowerthan serum/plasma values. (CLIA ID [id number]) Performed By: #### B GLU ####[address] Hemogram w/ Autodiffon 06-11 Abs Baso Cnt 0.1 10*3/uL Normal 0.0-0.2 [facility] Comment on above: Performed By: #### L FT3, FERR3, DDI2, PHOS3, MG3, ICA, CRP2, BMP3M, LDH3, HEMDF ####[address] Abs Neutrophile Cnt 10.1 10*3/uL High 1.8-7.0 [facility] Comment on above: Performed By: #### L FT3, FERR3, DDI2, PHOS3, MG3, ICA, CRP2, BMP3M, LDH3, HEMDF ####[address] Basophils/100 WBC (Bld) 0.9 % Normal 0.0-2.0 [facility] Comment on above: Performed By: #### L FT3, FERR3, DDI2, PHOS3, MG3, ICA, CRP2, BMP3M, LDH3, HEMDF ####[address] Eosinophils (Bld) [#/Vol] 0.0 10*3/uL Normal 0.0-0.5 [facility] Comment on above: Performed By: #### L FT3, FERR3, DDI2, PHOS3, MG3, ICA, CRP2, BMP3M, LDH3, HEMDF ####[address] Eosinophils/100 WBC (Bld) 0.3 % Low 1.0-6.0 [facility] Comment on above: Performed By: #### L FT3, FERR3, DDI2, PHOS3, MG3, ICA, CRP2, BMP3M, LDH3, HEMDF ####[address] Erythrocyte distribution width (RBC) [Ratio] 20.8 % High 11.5-14.5 [facility] Comment on above: Performed By: #### L FT3, FERR3, DDI2, PHOS3, MG3, ICA, CRP2, BMP3M, LDH3, HEMDF ####[address] Granulocytes/100 WBC (Bld) 83.4 % High 40.0-80.0 [facility] Comment on above: Performed By: #### L FT3, FERR3, DDI2, PHOS3, MG3, ICA, CRP2, BMP3M, LDH3, HEMDF ####[address] Hematocrit (Bld) [Volume fraction] 34.3 % Low 35.0-47.0 [facility] Comment on above: Performed By: #### L FT3, FERR3, DDI2, PHOS3, MG3, ICA, CRP2, BMP3M, LDH3, HEMDF ####[address] Hemoglobin (Bld) [Mass/Vol] 10.7 g/dL Low 11.7-16.0 [facility] Comment on above: Performed By: #### L FT3, FERR3, DDI2, PHOS3, MG3, ICA, CRP2, BMP3M, LDH3, HEMDF ####[address] Lymphocytes (Bld) [#/Vol] 0.6 10*3/uL Low 1.0-4.3 [facility] Comment on above: Performed By: #### L FT3, FERR3, DDI2, PHOS3, MG3, ICA, CRP2, BMP3M, LDH3, HEMDF ####[address] Lymphocytes/100 WBC (Bld) 5.2 % Low 20.0-40.0 [facility] Comment on above: Performed By: #### L FT3, FERR3, DDI2, PHOS3, MG3, ICA, CRP2, BMP3M, LDH3, HEMDF ####[address] MCH (RBC) [Entitic mass] 22.1 pg Low 26.0-34.0 [facility] Comment on above: Performed By: #### L FT3, FERR3, DDI2, PHOS3, MG3, ICA, CRP2, BMP3M, LDH3, HEMDF ####[address] MCHC 31.2 % Low 32.0-36.0 [facility] Comment on above: Performed By: #### L FT3, FERR3, DDI2, PHOS3, MG3, ICA, CRP2, BMP3M, LDH3, HEMDF ####[address] MCV (RBC) [Entitic vol] 70.9 fL Low 79.0-98.0 [facility] Comment on above: Performed By: #### L FT3, FERR3, DDI2, PHOS3, MG3, ICA, CRP2, BMP3M, LDH3, HEMDF ####[address] [place], [place] Monocytes (Bld) [#/Vol] 1.2 10*3/uL High 0.0-0.8 [facility] Comment on above: Performed By: #### L FT3, FERR3, DDI2, PHOS3, MG3, ICA, CRP2, BMP3M, LDH3, HEMDF ####[address] Monocytes/100 WBC (Bld) 10.2 % High 2.0-10.0 [facility] Comment on above: Performed By: #### L FT3, FERR3, DDI2, PHOS3, MG3, ICA, CRP2, BMP3M, LDH3, HEMDF ####[address] Platelet mean volume (Bld) [Entitic vol] 7.9 fL Normal 7.4-10.4 [facility] Comment on above: Performed By: #### L FT3, FERR3, DDI2, PHOS3, MG3, ICA, CRP2, BMP3M, LDH3, HEMDF ####[address] Platelets (Bld) [#/Vol] 265 10*3/uL Normal 140-440 [facility] Comment on above: Performed By: #### L FT3, FERR3, DDI2, PHOS3, MG3, ICA, CRP2, BMP3M, LDH3, HEMDF ####[address] RBC (Bld) [#/Vol] 4.85 10*6/uL Normal 3.80-5.20 [facility] Comment on above: Performed By: #### L FT3, FERR3, DDI2, PHOS3, MG3, ICA, CRP2, BMP3M, LDH3, HEMDF ####[address] WBC (Bld) [#/Vol] 12.1 10*3/uL High 3.6-10.7 [facility] Comment on above: Performed By: #### L FT3, FERR3, DDI2, PHOS3, MG3, ICA, CRP2, BMP3M, LDH3, HEMDF ####[id number] [place], [place] Hepatic Functionon 1 ALP [Catalytic activity/Vol] 81 U/L Normal 38-126 [facility] Comment on above: Performed By: #### L FT3, FERR3, DDI2, PHOS3, MG3, ICA, CRP2, BMP3M, LDH3, HEMDF ####[address] ALT [Catalytic activity/Vol] 72 U/L High 0-34 [facility] Comment on above: Result Comment: The ALT test is performed by an updated assay method.Please note that the reference intervals have beenchanged and are now sex specific. Performed By: #### L FT3, FERR3, DDI2, PHOS3, MG3, ICA, CRP2, BMP3M, LDH3, HEMDF ####[address] AST [Catalytic activity/Vol] 32 U/L Normal 15-46 [facility] Comment on above: Performed By: #### L FT3, FERR3, DDI2, PHOS3, MG3, ICA, CRP2, BMP3M, LDH3, HEMDF ####[address] Bilirubin [Mass/Vol] 0.4 mg/dL Normal 0.2-1.3 [facility] Comment on above: Performed By: #### L FT3, FERR3, DDI2, PHOS3, MG3, ICA, CRP2, BMP3M, LDH3, HEMDF ####[address] Protein [Mass/Vol] 6.3 g/dL Normal 6.3-8.2 [facility] Comment on above: Performed By: #### L FT3, FERR3, DDI2, PHOS3, MG3, ICA, CRP2, BMP3M, LDH3, HEMDF ####[id number] [place] [address] Bilirubin.indirect [Mass/Vol] 0.0 mg/dL Normal 0.0-0.3 [facility] Comment on above: Performed By: #### L FT3, FERR3, DDI2, PHOS3, MG3, ICA, CRP2, BMP3M, LDH3, HEMDF ####[address] [id number] Albumin [Mass/Vol] 3.2 g/dL Low 3.5-5.0 [facility] Comment on above: Performed By: #### L FT3, FERR3, DDI2, PHOS3, MG3, ICA, CRP2, BMP3M, LDH3, HEMDF ####[address] [id number] LDHon 06-11-2021 LDH 264 U/L High 120-246 [facility] Comment on above: Performed By: #### L FT3, FERR3, DDI2, PHOS3, MG3, ICA, CRP2, BMP3M, LDH3, HEMDF ####[address] [id number] Magnesiumon 06-11-2021 Magnesium [Mass/Vol] 2.6 mg/dL High 1.6-2.3 [facility] Comment on above: Performed By: #### L FT3, FERR3, DDI2, PHOS3, MG3, ICA, CRP2, BMP3M, LDH3, HEMDF ####[address] [place] [address] Phosphoruson 06-11-2021 Phosphate [Mass/Vol] 3.7 mg/dL Normal 2.5-4.5 [facility] Comment on above: Performed By: #### L FT3, FERR3, DDI2, PHOS3, MG3, ICA, CRP2, BMP3M, LDH3, HEMDF ####[address] Arterial Blood Gaseson 06-10 CO2 [Moles/Vol] 36.1 mmol/L High 23.0-27.0 [facility] Comment on above: Performed By: #### A BG ####[address] HCO3 (Bld) [Moles/Vol] 34.5 mmol/L High 21.0-25.0 [facility] Comment on above: Performed By: #### A BG ####[address] Hemoglobin (Bld) [Mass/Vol] 12.2 g/dL Normal ScreenOnly [facility] Comment on above: Performed By: #### A BG ####[address] Oxygen (Bld) [Partial pressure] 87.2 mm[Hg] Normal 80.0-100.0 [facility] Comment on above: Performed By: #### A BG ####[address] Oxygen saturation in Blood 95.5 % Normal 95.0-100.0 [facility] Comment on above: Performed By: #### A BG ####[address] pCO2 50.8 mm[Hg] High 35.0-45.0 [facility] Comment on above: Performed By: #### A BG ####[address] pH 7.450 Normal 7.350-7.450 [facility] Comment on above: Performed By: #### A BG ####[address] Std Base Excess 9.1 mmol/L High -3.0-3.0 [facility] Comment on above: Performed By: #### A BG ####[address] FIO2 No data Normal [facility] Comment on above: Performed By: #### A BG ####[facility] [place], [place] FIO2 No data, on ice Normal [facility] Comment on above: Result Comment: [...] clinically indicated. Performed By: #### A BG ####[id number] [place], [place] CO2 [Moles/Vol] 35.3 mmol/L High 23.0-27.0 [facility] Comment on above: Performed By: #### A BG ####[id number] [place], [place] HCO3 (Bld) [Moles/Vol] 33.9 mmol/L High 21.0-25.0 [facility] Comment on above: Performed By: #### A BG ####[facility] [employer] [id number] [place], [place] Hemoglobin (Bld) [Mass/Vol] 11.7 g/dL Normal ScreenOnly [facility] Comment on above: Performed By: #### A BG ####[address] [place], [place] Oxygen (Bld) [Partial pressure] 68.7 mm[Hg] Low 80.0-100.0 [facility] Comment on above: Performed By: #### A BG ####[facility] [employer] [id number] [place], [place] Oxygen saturation in Blood 92.6 % Low 95.0-100.0 [facility] Comment on above: Performed By: #### A BG ####[facility] [employer] [address] pCO2 44.4 mm[Hg] Normal 35.0-45.0 [facility] Comment on above: Performed By: #### A BG ####[address] [place], [place] pH 7.501 High 7.350-7.450 [facility] Comment on above: Performed By: #### A BG ####[address] [place], [place] Std Base Excess 9.7 mmol/L High -3.0-3.0 [facility] Comment on above: Performed By: #### A BG ####[address] [place], [place] Basic Metabolic Panelon 07-12 01-2020 Anion gap [Moles/Vol] 5 mmol/L Normal 3-13 [facility] Comment on above: Performed By: #### L FT3, BMP3M, HEMDF, CRP2, DDI2, MG3, LDH3, PHOS3, FERR3, ICA ####[address] [place], [place] Calcium [Mass/Vol] 8.9 mg/dL Normal 8.4-10.4 [facility] Comment on above: Performed By: #### L FT3, BMP3M, HEMDF, CRP2, DDI2, MG3, LDH3, PHOS3, FERR3, ICA ####[address] [place], [place] CO2 [Moles/Vol] 32 mmol/L High 22-30 [facility] Comment on above: Performed By: #### L FT3, BMP3M, HEMDF, CRP2, DDI2, MG3, LDH3, PHOS3, FERR3, ICA ####[address] [place], [place] Glucose [Mass/Vol] 129 mg/dL High 70-100 [facility] Comment on above: Performed By: #### L FT3, BMP3M, HEMDF, CRP2, DDI2, MG3, LDH3, PHOS3, FERR3, ICA ####[address] [place], [place] Urea nitrogen [Mass/Vol] 65 mg/dL High 7-20 [facility] Comment on above: Performed By: #### L FT3, BMP3M, HEMDF, CRP2, DDI2, MG3, LDH3, PHOS3, FERR3, ICA ####[address] [place] [address] Creatinine [Mass/Vol] 0.81 mg/dL Normal 0.52-1.25 [facility] Comment on above: Performed By: #### L FT3, BMP3M, HEMDF, CRP2, DDI2, MG3, LDH3, PHOS3, FERR3, ICA ####[address] [place] [address] GFR/1.73 sq M.predicted among blacks MDRD (S/P/Bld) [Vol rate/Area] mL/min/{1.73_m2} Normal >60 [facility] Comment on above: Performed By: #### L FT3, BMP3M, HEMDF, CRP2, DDI2, MG3, LDH3, PHOS3, FERR3, ICA ####[address] [address] GFR/1.73 sq M.predicted among non-blacks MDRD (S/P/Bld) [Vol rate/Area] 82.7 mL/min/{1.73_m2} Normal >60 [facility] Comment on above: Result Comment: KDIG O guidelines provide the following GFR categories:Stage GFR(ml/min/1.73 m2) TermsG1 >=90 Normal or highG2 60-89 Mildly decreased*G3a 45-59 Mildly to moderately [id number] 30-44 Moderately to severely decreasedG4 15-29 Severely [...] CRP2, DDI2, MG3, LDH3, PHOS3, FERR3, ICA ####[address] [place], [place] Potassium [Moles/Vol] 4.2 mmol/L Normal 3.5-5.1 [facility] Comment on above: Performed By: #### L FT3, BMP3M, HEMDF, CRP2, DDI2, MG3, LDH3, PHOS3, FERR3, ICA ####[address] [place], [place] Sodium [Moles/Vol] 146 mmol/L High 135-145 [facility] Comment on above: Performed By: #### L FT3, BMP3M, HEMDF, CRP2, DDI2, MG3, LDH3, PHOS3, FERR3, ICA ####[address] Chloride [Moles/Vol] 109 mmol/L High 98-107 [facility] Comment on above: Performed By: #### L FT3, BMP3M, HEMDF, CRP2, DDI2, MG3, LDH3, PHOS3, FERR3, ICA ####[address] [place], [place] C-Reactive Proteinon 021 CRP [Mass/Vol] 7.1 mg/L High 0.0-6.0 [facility] Comment on above: Result Comment: . Performed By: #### L FT3, BMP3M, HEMDF, CRP2, DDI2, MG3, LDH3, PHOS3, FERR3, ICA ####[address] [place], [place] CR Chest Portableon 06-10-20 21 CR Chest Portable Normal [facility] CULT./ST. RESPIRATORYon 05-30 CULT./ST. RESPIRATORY CULT./ST. RESPIRAT ORY --> Status: F No growth of normal respiratory pretty. 1 Organism Evin albicans Few Normal [facility] Comment on above: Performed By: #### C S/RE, S/GRM ####[address] [place] [address] Calcium,Ionizedon 06-10-2021 Ionized Ca,Measured 4.60 mg/dL Normal 4.30-5.20 [facility] Comment on above: Performed By: #### L FT3, BMP3M, HEMDF, CRP2, DDI2, MG3, LDH3, PHOS3, FERR3, ICA ####[address] [place] [address] pH, Ionized Calcium 7.49 High 7.31-7.46 [facility] Comment on above: Performed By: #### L FT3, BMP3M, HEMDF, CRP2, DDI2, MG3, LDH3, PHOS3, FERR3, ICA ####[address] [place] [address] D-Dimer, Innovanceon 021 D-Dimer, Innovance 20.61 mg/L High <0.19-0.50 [facility] Comment on above: Result Comment: Inno carrington D-Dimer values of <0.50 mg/L FEU can be used incombination with a pre-test probability model (e.g. Well's)to exclude pulmonary embolism (PE) disease, as well as jodi in the diagnosis of deep vein thrombosis (DVT). Performed By: #### L FT3, BMP3M, HEMDF, CRP2, DDI2, MG3, LDH3, PHOS3, FERR3, ICA ####[facility] [employer] [id number] [place] [address] Ferritinon 06-10-2021 Ferritin [Mass/Vol] 54 ng/mL Normal 8-252 [facility] Comment on above: Performed By: #### L FT3, BMP3M, HEMDF, CRP2, DDI2, MG3, LDH3, PHOS3, FERR3, ICA ####[facility] [employer] [id number] [place] [address] Glucose,Bedsideon 06-10-2021 Glucose [Mass/Vol] 150 mg/dL High 70-100 [facility] Comment on above: Result Comment: Test performed by glucose meter. Results may be 10%-15% lowerthan serum/plasma values. (CLIA ID [id number]) Performed By: #### B GLU ####[facility] [employer] [id number] [place], [place] Glucose [Mass/Vol] 164 mg/dL High 70-100 [facility] Comment on above: Result Comment: Test performed by glucose meter. Results may be 10%-15% lowerthan serum/plasma values. (CLIA ID [id number]) Performed By: #### B GLU ####[facility] [employer] [id number] [place], [place] Glucose [Mass/Vol] 130 mg/dL High 70-100 [facility] Comment on above: Result Comment: Test performed by glucose meter. Results may be 10%-15% lowerthan serum/plasma values. (CLIA ID [id number]) Performed By: #### B GLU ####[facility] [employer] [address] Glucose [Mass/Vol] 121 mg/dL High [address] Comment on above: Result Comment: Test performed by glucose meter. Results may be 10%-15% lowerthan serum/plasma values. (CLIA ID [id number]) Performed By: #### B GLU ####[address] Hemogram w/ Autodiffon 06-10 Abs Baso Cnt 0.0 10*3/uL Normal 0.0-0.2 [facility] Comment on above: Performed By: #### L FT3, BMP3M, HEMDF, CRP2, DDI2, MG3, LDH3, PHOS3, FERR3, ICA ####[facility] [employer] [id number] [place], [place] Abs Neutrophile Cnt 8.8 10*3/uL High 1.8-7.0 [facility] Comment on above: Performed By: #### L FT3, BMP3M, HEMDF, CRP2, DDI2, MG3, LDH3, PHOS3, FERR3, ICA ####[address] Basophils/100 WBC (Bld) 0.2 % Normal 0.0-2.0 [facility] Comment on above: Performed By: #### L FT3, BMP3M, HEMDF, CRP2, DDI2, MG3, LDH3, PHOS3, FERR3, ICA ####[address] Eosinophils (Bld) [#/Vol] 0.1 10*3/uL Normal 0.0-0.5 [facility] Comment on above: Performed By: #### L FT3, BMP3M, HEMDF, CRP2, DDI2, MG3, LDH3, PHOS3, FERR3, ICA ####[address] Eosinophils/100 WBC (Bld) 1.2 % Normal 1.0-6.0 [facility] Comment on above: Performed By: #### L FT3, BMP3M, HEMDF, CRP2, DDI2, MG3, LDH3, PHOS3, FERR3, ICA ####[address] Erythrocyte distribution width (RBC) [Ratio] 20.6 % High 11.5-14.5 [facility] Comment on above: Performed By: #### L FT3, BMP3M, HEMDF, CRP2, DDI2, MG3, LDH3, PHOS3, FERR3, ICA ####[address] Granulocytes/100 WBC (Bld) 82.5 % High 40.0-80.0 [facility] Comment on above: Performed By: #### L FT3, BMP3M, HEMDF, CRP2, DDI2, MG3, LDH3, PHOS3, FERR3, ICA ####[address] Hematocrit (Bld) [Volume fraction] 33.7 % Low 35.0-47.0 [facility] Comment on above: Performed By: #### L FT3, BMP3M, HEMDF, CRP2, DDI2, MG3, LDH3, PHOS3, FERR3, ICA ####[address] Hemoglobin (Bld) [Mass/Vol] 10.6 g/dL Low 11.7-16.0 [facility] Comment on above: Performed By: #### L FT3, BMP3M, HEMDF, CRP2, DDI2, MG3, LDH3, PHOS3, FERR3, ICA ####[address] Lymphocytes (Bld) [#/Vol] 0.7 10*3/uL Low 1.0-4.3 [facility] Comment on above: Performed By: #### L FT3, BMP3M, HEMDF, CRP2, DDI2, MG3, LDH3, PHOS3, FERR3, ICA ####[address] Lymphocytes/100 WBC (Bld) 6.9 % Low 20.0-40.0 [facility] Comment on above: Performed By: #### L FT3, BMP3M, HEMDF, CRP2, DDI2, MG3, LDH3, PHOS3, FERR3, ICA ####[address] MCH (RBC) [Entitic mass] 22.5 pg Low 26.0-34.0 [facility] Comment on above: Performed By: #### L FT3, BMP3M, HEMDF, CRP2, DDI2, MG3, LDH3, PHOS3, FERR3, ICA ####[address] MCHC 31.4 % Low 32.0-36.0 [facility] Comment on above: Performed By: #### L FT3, BMP3M, HEMDF, CRP2, DDI2, MG3, LDH3, PHOS3, FERR3, ICA ####[address] [place], [place] MCV (RBC) [Entitic vol] 71.7 fL Low 79.0-98.0 [facility] Comment on above: Performed By: #### L FT3, BMP3M, HEMDF, CRP2, DDI2, MG3, LDH3, PHOS3, FERR3, ICA ####[address] [place], [place] Monocytes (Bld) [#/Vol] 1.0 10*3/uL High 0.0-0.8 [facility] Comment on above: Performed By: #### L FT3, BMP3M, HEMDF, CRP2, DDI2, MG3, LDH3, PHOS3, FERR3, ICA ####[address] [place], [place] Monocytes/100 WBC (Bld) 9.2 % Normal 2.0-10.0 [facility] Comment on above: Performed By: #### L FT3, BMP3M, HEMDF, CRP2, DDI2, MG3, LDH3, PHOS3, FERR3, ICA ####[address] Platelet mean volume (Bld) [Entitic vol] 7.9 fL Normal 7.4-10.4 [facility] Comment on above: Performed By: #### L FT3, BMP3M, HEMDF, CRP2, DDI2, MG3, LDH3, PHOS3, FERR3, ICA ####[address] Platelets (Bld) [#/Vol] 253 10*3/uL Normal 140-440 [facility] Comment on above: Performed By: #### L FT3, BMP3M, HEMDF, CRP2, DDI2, MG3, LDH3, PHOS3, FERR3, ICA ####[address] RBC (Bld) [#/Vol] 4.70 10*6/uL Normal 3.80-5.20 [facility] Comment on above: Performed By: #### L FT3, BMP3M, HEMDF, CRP2, DDI2, MG3, LDH3, PHOS3, FERR3, ICA ####[address] WBC (Bld) [#/Vol] 10.7 10*3/uL Normal 3.6-10.7 [facility] Comment on above: Performed By: #### L FT3, BMP3M, HEMDF, CRP2, DDI2, MG3, LDH3, PHOS3, FERR3, ICA ####[address] Hepatic Functionon 1 ALP [Catalytic activity/Vol] 80 U/L Normal 38-126 [facility] Comment on above: Performed By: #### L FT3, BMP3M, HEMDF, CRP2, DDI2, MG3, LDH3, PHOS3, FERR3, ICA ####[address] ALT [Catalytic activity/Vol] 85 U/L High 0-34 [facility] Comment on above: Result Comment: The ALT test is performed by an updated assay method.Please note that the reference intervals have beenchanged and are now sex specific. Performed By: #### L FT3, BMP3M, HEMDF, CRP2, DDI2, MG3, LDH3, PHOS3, FERR3, ICA ####[address] AST [Catalytic activity/Vol] 38 U/L Normal 15-46 [facility] Comment on above: Performed By: #### L FT3, BMP3M, HEMDF, CRP2, DDI2, MG3, LDH3, PHOS3, FERR3, ICA ####[address] Bilirubin [Mass/Vol] 0.6 mg/dL Normal 0.2-1.3 [facility] Comment on above: Performed By: #### L FT3, BMP3M, HEMDF, CRP2, DDI2, MG3, LDH3, PHOS3, FERR3, ICA ####[address] [address] Bilirubin.indirect [Mass/Vol] 0.0 mg/dL Normal 0.0-0.3 [facility] Comment on above: Performed By: #### L FT3, BMP3M, HEMDF, CRP2, DDI2, MG3, LDH3, PHOS3, FERR3, ICA ####[address] [address] Protein [Mass/Vol] 6.5 g/dL Normal 6.3-8.2 [facility] Comment on above: Performed By: #### L FT3, BMP3M, HEMDF, CRP2, DDI2, MG3, LDH3, PHOS3, FERR3, ICA ####[address] [address] Albumin [Mass/Vol] 3.2 g/dL Low 3.5-5.0 [facility] Comment on above: Performed By: #### L FT3, BMP3M, HEMDF, CRP2, DDI2, MG3, LDH3, PHOS3, FERR3, ICA ####[address] [place] [address] LDHon 06-10-2021 LDH 268 U/L High 120-246 [facility] Comment on above: Performed By: #### L FT3, BMP3M, HEMDF, CRP2, DDI2, MG3, LDH3, PHOS3, FERR3, ICA ####[address] [place] [address] Magnesiumon 06-10-2021 Magnesium [Mass/Vol] 2.7 mg/dL High 1.6-2.3 [facility] Comment on above: Performed By: #### L FT3, BMP3M, HEMDF, CRP2, DDI2, MG3, LDH3, PHOS3, FERR3, ICA ####[address] [address] Phosphoruson 06-10-2021 Phosphate [Mass/Vol] 3.5 mg/dL Normal 2.5-4.5 [facility] Comment on above: Performed By: #### L FT3, BMP3M, HEMDF, CRP2, DDI2, MG3, LDH3, PHOS3, FERR3, ICA ####[address] [place], [place] VL Venous Duplex US Upper Ex t Bilateralon 06-10-2021 VL Venous Duplex US Upper Ext Bilateral Normal [facility] Arterial Blood Gaseson 06-09 CO2 [Moles/Vol] 31.8 mmol/L High 23.0-27.0 [facility] Comment on above: Performed By: #### A BG ####[address] [place], [place] HCO3 (Bld) [Moles/Vol] 30.4 mmol/L High 21.0-25.0 [facility] Comment on above: Performed By: #### A BG ####[address] Hemoglobin (Bld) [Mass/Vol] 10.9 g/dL Normal ScreenOnly [facility] Comment on above: Performed By: #### A BG ####[address] [place], [place] Oxygen (Bld) [Partial pressure] 85.3 mm[Hg] Normal 80.0-100.0 [facility] Comment on above: Performed By: #### A BG ####[address] Oxygen saturation in Blood 96.1 % Normal 95.0-100.0 [facility] Comment on above: Performed By: #### A BG ####[address] [place] pCO2 45.2 mm[Hg] High 35.0-45.0 [facility] Comment on above: Performed By: #### A BG ####[address] [place], [place] pH 7.446 Normal 7.350-7.450 [facility] Comment on above: Performed By: #### A BG ####[address] [place], [place] Std Base Excess 5.7 mmol/L High -3.0-3.0 [facility] Comment on above: Performed By: #### A BG ####[address] [place], [place] FIO2 40% Normal [facility] Comment on above: Performed By: #### A BG ####[address] [place], [place] CO2 [Moles/Vol] 31.6 mmol/L High 23.0-27.0 [facility] Comment on above: Performed By: #### A BG ####[address] HCO3 (Bld) [Moles/Vol] 30.2 mmol/L High 21.0-25.0 [facility] Comment on above: Performed By: #### A BG ####[address] [place], [place] Hemoglobin (Bld) [Mass/Vol] 12.4 g/dL Normal ScreenOnly [facility] Comment on above: Performed By: #### A BG ####[address] Oxygen (Bld) [Partial pressure] 77.1 mm[Hg] Low 80.0-100.0 [facility] Comment on above: Performed By: #### A BG ####[address] Oxygen saturation in Blood 94.9 % Low 95.0-100.0 [facility] Comment on above: Performed By: #### A BG ####[address] pCO2 46.4 mm[Hg] High 35.0-45.0 [facility] Comment on above: Performed By: #### A BG ####[address] pH 7.431 Normal 7.350-7.450 [facility] Comment on above: Performed By: #### A BG ####[address] [place], [place] Std Base Excess 5.1 mmol/L High -3.0-3.0 [facility] Comment on above: Performed By: #### A BG ####[address] [place], [place] FIO2 No data Normal [facility] Comment on above: Performed By: #### A BG ####[address] Basic Metabolic Panelon 07- Calcium [Mass/Vol] 8.6 mg/dL Normal 8.4-10.4 [facility] Comment on above: Performed By: #### L DH3, ICA, HEMDF, BMP3M, LFT3, CRP2, MG3, FERR3, PHOS3, DDI2 ####[address] Anion gap [Moles/Vol] 4 mmol/L Normal 3-13 [facility] Comment on above: Performed By: #### L DH3, ICA, HEMDF, BMP3M, LFT3, CRP2, MG3, FERR3, PHOS3, DDI2 ####[address] [place] CO2 [Moles/Vol] 32 mmol/L High 22-30 [facility] Comment on above: Performed By: #### L DH3, ICA, HEMDF, BMP3M, LFT3, CRP2, MG3, FERR3, PHOS3, DDI2 ####[address] [place], [place] Glucose [Mass/Vol] 125 mg/dL High 70-100 [facility] Comment on above: Performed By: #### L DH3, ICA, HEMDF, BMP3M, LFT3, CRP2, MG3, FERR3, PHOS3, DDI2 ####[address] [place], [place] Urea nitrogen [Mass/Vol] 72 mg/dL High 7-20 [facility] Comment on above: Performed By: #### L DH3, ICA, HEMDF, BMP3M, LFT3, CRP2, MG3, FERR3, PHOS3, DDI2 ####[facility] [place], [place] Creatinine [Mass/Vol] 1.10 mg/dL Normal 0.52-1.25 [facility] Comment on above: Performed By: #### L DH3, ICA, HEMDF, BMP3M, LFT3, CRP2, MG3, FERR3, PHOS3, DDI2 ####[address] [place], [place] GFR/1.73 sq M.predicted among blacks MDRD (S/P/Bld) [Vol rate/Area] 66.2 mL/min/{1.73_m2} Normal >60 [facility] Comment on above: Performed By: #### L DH3, ICA, HEMDF, BMP3M, LFT3, CRP2, MG3, FERR3, PHOS3, DDI2 ####[address] [place], [place] GFR/1.73 sq M.predicted among non-blacks MDRD (S/P/Bld) [Vol rate/Area] 57.1 mL/min/{1.73_m2} Abnormal >60 [facility] Comment on above: Result Comment: KDIG O guidelines provide the following GFR categories:Stage GFR(ml/min/1.73 m2) TermsG1 >=90 Normal or highG2 60-89 Mildly decreased*G3a 45-59 Mildly to moderately [id number] 30-44 Moderately to severely decreasedG4 15-29 Severely [...] BMP3M, LFT3, CRP2, MG3, FERR3, PHOS3, DDI2 ####[address] [place], [place] Potassium [Moles/Vol] 4.0 mmol/L Normal 3.5-5.1 [facility] Comment on above: Performed By: #### L DH3, ICA, HEMDF, BMP3M, LFT3, CRP2, MG3, FERR3, PHOS3, DDI2 ####[address] Chloride [Moles/Vol] 108 mmol/L High 98-107 [facility] Comment on above: Performed By: #### L DH3, ICA, HEMDF, BMP3M, LFT3, CRP2, MG3, FERR3, PHOS3, DDI2 ####[address] Sodium [Moles/Vol] 143 mmol/L Normal 135-145 [facility] Comment on above: Performed By: #### L DH3, ICA, HEMDF, BMP3M, LFT3, CRP2, MG3, FERR3, PHOS3, DDI2 ####[address] C-Reactive Proteinon 021 CRP [Mass/Vol] 9.7 mg/L High 0.0-6.0 [facility] Comment on above: Result Comment: . Performed By: #### L DH3, ICA, HEMDF, BMP3M, LFT3, CRP2, MG3, FERR3, PHOS3, DDI2 ####[address] [place] [address] CR Chest Portableon 06-09-20 21 CR Chest Portable Normal [facility] CULTURE BLOODon 06-09-2021 Microscopic examination of blood, culture CULTURE BLOOD --> Status: F No growth at 5 days. Normal [facility] Comment on above: Performed By: #### C /BLD ####[facility] [employer] [id number] [place], [place] CULTURE BLOOD (Two)on 2020 Microscopic examination of blood, culture CULTURE BLOOD (Two) --> Status: F No growth at 5 days. Normal [facility] Comment on above: Performed By: #### C /BLT ####[facility] [employer] [id number] [place], [place] Calcium,Ionizedon 06-09-2021 Ionized Ca,Measured 4.50 mg/dL Normal 4.30-5.20 [facility] Comment on above: Performed By: #### L DH3, ICA, HEMDF, BMP3M, LFT3, CRP2, MG3, FERR3, PHOS3, DDI2 ####[facility] [employer] [id number] [place], [place] pH, Ionized Calcium 7.44 Normal 7.31-7.46 [facility] Comment on above: Performed By: #### L DH3, ICA, HEMDF, BMP3M, LFT3, CRP2, MG3, FERR3, PHOS3, DDI2 ####[facility] [employer] [id number] [place], [place] D-Dimer, Innovanceon 021 D-Dimer, Innovance 25.09 mg/L High <0.19-0.50 [facility] Comment on above: Result Comment: Inno carrington D-Dimer values of <0.50 mg/L FEU can be used incombination with a pre-test probability model (e.g. Well's)to exclude pulmonary embolism (PE) disease, as well as jodi in the diagnosis of deep vein thrombosis (DVT). Performed By: #### L DH3, ICA, HEMDF, BMP3M, LFT3, CRP2, MG3, FERR3, PHOS3, DDI2 ####[facility] [employer] [id number] [place], [place] Ferritinon 06-09-2021 Ferritin [Mass/Vol] 62 ng/mL Normal 8-252 [facility] Comment on above: Performed By: #### L DH3, ICA, HEMDF, BMP3M, LFT3, CRP2, MG3, FERR3, PHOS3, DDI2 ####[facility] [employer] [id number] [place], [place] Glucose,Bedsideon 06-09-2021 Glucose [Mass/Vol] 154 mg/dL High 70-100 [facility] Comment on above: Result Comment: Test performed by glucose meter. Results may be 10%-15% lowerthan serum/plasma values. (CLIA ID [id number]) Performed By: #### B GLU ####[facility] [employer] [address] Glucose [Mass/Vol] 179 mg/dL High 70-100 [facility] Comment on above: Result Comment: Test performed by glucose meter. Results may be 10%-15% lowerthan serum/plasma values. (CLIA ID [id number]) Performed By: #### B GLU ####[facility] [employer] [address] Glucose [Mass/Vol] 128 mg/dL High 70-100 [facility] Comment on above: Result Comment: Test performed by glucose meter. Results may be 10%-15% lowerthan serum/plasma values. (CLIA ID [id number]) Performed By: #### B GLU ####[facility] [employer] [address] Hemogram w/ Autodiffon 06-09 Abs Baso Cnt 0.0 10*3/uL Normal 0.0-0.2 [facility] Comment on above: Performed By: #### L DH3, ICA, HEMDF, BMP3M, LFT3, CRP2, MG3, FERR3, PHOS3, DDI2 ####[facility] [employer] [address] Abs Neutrophile Cnt 8.3 10*3/uL High 1.8-7.0 [facility] Comment on above: Performed By: #### L DH3, ICA, HEMDF, BMP3M, LFT3, CRP2, MG3, FERR3, PHOS3, DDI2 ####[address] Basophils/100 WBC (Bld) 0.1 % Normal 0.0-2.0 [facility] Comment on above: Performed By: #### L DH3, ICA, HEMDF, BMP3M, LFT3, CRP2, MG3, FERR3, PHOS3, DDI2 ####[address] Eosinophils (Bld) [#/Vol] 0.2 10*3/uL Normal 0.0-0.5 [facility] Comment on above: Performed By: #### L DH3, ICA, HEMDF, BMP3M, LFT3, CRP2, MG3, FERR3, PHOS3, DDI2 ####[address] Eosinophils/100 WBC (Bld) 1.6 % Normal 1.0-6.0 [facility] Comment on above: Performed By: #### L DH3, ICA, HEMDF, BMP3M, LFT3, CRP2, MG3, FERR3, PHOS3, DDI2 ####[address] Erythrocyte distribution width (RBC) [Ratio] 21.0 % High 11.5-14.5 [facility] Comment on above: Performed By: #### L DH3, ICA, HEMDF, BMP3M, LFT3, CRP2, MG3, FERR3, PHOS3, DDI2 ####[address] Granulocytes/100 WBC (Bld) 81.2 % High 40.0-80.0 [facility] Comment on above: Performed By: #### L DH3, ICA, HEMDF, BMP3M, LFT3, CRP2, MG3, FERR3, PHOS3, DDI2 ####[address] Hematocrit (Bld) [Volume fraction] 33.5 % Low 35.0-47.0 [facility] Comment on above: Performed By: #### L DH3, ICA, HEMDF, BMP3M, LFT3, CRP2, MG3, FERR3, PHOS3, DDI2 ####[address] Hemoglobin (Bld) [Mass/Vol] 10.5 g/dL Low 11.7-16.0 [facility] Comment on above: Performed By: #### L DH3, ICA, HEMDF, BMP3M, LFT3, CRP2, MG3, FERR3, PHOS3, DDI2 ####[address] Lymphocytes (Bld) [#/Vol] 0.8 10*3/uL Low 1.0-4.3 [facility] Comment on above: Performed By: #### L DH3, ICA, HEMDF, BMP3M, LFT3, CRP2, MG3, FERR3, PHOS3, DDI2 ####[address] Lymphocytes/100 WBC (Bld) 8.0 % Low 20.0-40.0 [facility] Comment on above: Performed By: #### L DH3, ICA, HEMDF, BMP3M, LFT3, CRP2, MG3, FERR3, PHOS3, DDI2 ####[address] MCH (RBC) [Entitic mass] 22.2 pg Low 26.0-34.0 [facility] Comment on above: Performed By: #### L DH3, ICA, HEMDF, BMP3M, LFT3, CRP2, MG3, FERR3, PHOS3, DDI2 ####[address] MCHC 31.4 % Low 32.0-36.0 [facility] Comment on above: Performed By: #### L DH3, ICA, HEMDF, BMP3M, LFT3, CRP2, MG3, FERR3, PHOS3, DDI2 ####[address] MCV (RBC) [Entitic vol] 70.7 fL Low 79.0-98.0 [facility] Comment on above: Performed By: #### L DH3, ICA, HEMDF, BMP3M, LFT3, CRP2, MG3, FERR3, PHOS3, DDI2 ####[id number] [place], [place] Monocytes (Bld) [#/Vol] 0.9 10*3/uL High 0.0-0.8 [facility] Comment on above: Performed By: #### L DH3, ICA, HEMDF, BMP3M, LFT3, CRP2, MG3, FERR3, PHOS3, DDI2 ####[id number] [place], [place] Monocytes/100 WBC (Bld) 9.1 % Normal 2.0-10.0 [facility] Comment on above: Performed By: #### L DH3, ICA, HEMDF, BMP3M, LFT3, CRP2, MG3, FERR3, PHOS3, DDI2 ####[address] Platelet mean volume (Bld) [Entitic vol] 8.6 fL Normal 7.4-10.4 [facility] Comment on above: Performed By: #### L DH3, ICA, HEMDF, BMP3M, LFT3, CRP2, MG3, FERR3, PHOS3, DDI2 ####[address] Platelets (Bld) [#/Vol] 227 10*3/uL Normal 140-440 [facility] Comment on above: Performed By: #### L DH3, ICA, HEMDF, BMP3M, LFT3, CRP2, MG3, FERR3, PHOS3, DDI2 ####[address] RBC (Bld) [#/Vol] 4.73 10*6/uL Normal 3.80-5.20 [facility] Comment on above: Performed By: #### L DH3, ICA, HEMDF, BMP3M, LFT3, CRP2, MG3, FERR3, PHOS3, DDI2 ####[id number] [place], [place] WBC (Bld) [#/Vol] 10.2 10*3/uL Normal 3.6-10.7 [facility] Comment on above: Performed By: #### L DH3, ICA, HEMDF, BMP3M, LFT3, CRP2, MG3, FERR3, PHOS3, DDI2 ####[address] Hepatic Functionon 1 ALP [Catalytic activity/Vol] 80 U/L Normal 38-126 [facility] Comment on above: Performed By: #### L DH3, ICA, HEMDF, BMP3M, LFT3, CRP2, MG3, FERR3, PHOS3, DDI2 ####[address] ALT [Catalytic activity/Vol] 105 U/L High 0-34 [facility] Comment on above: Result Comment: The ALT test is performed by an updated assay method.Please note that the reference intervals have beenchanged and are now sex specific. Performed By: #### L DH3, ICA, HEMDF, BMP3M, LFT3, CRP2, MG3, FERR3, PHOS3, DDI2 ####[address] AST [Catalytic activity/Vol] 56 U/L High 15-46 [facility] Comment on above: Performed By: #### L DH3, ICA, HEMDF, BMP3M, LFT3, CRP2, MG3, FERR3, PHOS3, DDI2 ####[id number] [place], [place] Bilirubin [Mass/Vol] 0.5 mg/dL Normal 0.2-1.3 [facility] Comment on above: Performed By: #### L DH3, ICA, HEMDF, BMP3M, LFT3, CRP2, MG3, FERR3, PHOS3, DDI2 ####[address] [place] [address] Bilirubin.indirect [Mass/Vol] 0.0 mg/dL Normal 0.0-0.3 [facility] Comment on above: Performed By: #### L DH3, ICA, HEMDF, BMP3M, LFT3, CRP2, MG3, FERR3, PHOS3, DDI2 ####[address] Protein [Mass/Vol] 6.3 g/dL Normal 6.3-8.2 [facility] Comment on above: Performed By: #### L DH3, ICA, HEMDF, BMP3M, LFT3, CRP2, MG3, FERR3, PHOS3, DDI2 ####[address] Albumin [Mass/Vol] 3.2 g/dL Low 3.5-5.0 [facility] Comment on above: Performed By: #### L DH3, ICA, HEMDF, BMP3M, LFT3, CRP2, MG3, FERR3, PHOS3, DDI2 ####[address] [place] [address] LDHon 06-09-2021 LDH 298 U/L High 120-246 [facility] Comment on above: Performed By: #### L DH3, ICA, HEMDF, BMP3M, LFT3, CRP2, MG3, FERR3, PHOS3, DDI2 ####[address] [place] [address] Magnesiumon 06-09-2021 Magnesium [Mass/Vol] 2.7 mg/dL High 1.6-2.3 [facility] Comment on above: Performed By: #### L DH3, ICA, HEMDF, BMP3M, LFT3, CRP2, MG3, FERR3, PHOS3, DDI2 ####[address] [address] Phosphoruson 06-09-2021 Phosphate [Mass/Vol] 3.7 mg/dL Normal 2.5-4.5 [facility] Comment on above: Performed By: #### L DH3, ICA, HEMDF, BMP3M, LFT3, CRP2, MG3, FERR3, PHOS3, DDI2 ####[id number] [place], [place] Add on test from HISon 06-08 Add on test from [facility] Accepted Normal [facility] Comment on above: Result Comment: Spec imen available & acceptable for analysis.Added to order- [id number] Performed By: #### A DDON ####[id number] [place], [place] Arterial Blood Gaseson 06-08 CO2 [Moles/Vol] 33.3 mmol/L High 23.0-27.0 [facility] Comment on above: Performed By: #### A BG ####[address] [place], [place] HCO3 (Bld) [Moles/Vol] 31.7 mmol/L High 21.0-25.0 [facility] Comment on above: Performed By: #### A BG ####[address] [place], [place] Hemoglobin (Bld) [Mass/Vol] 11.2 g/dL Normal ScreenOnly [facility] Comment on above: Performed By: #### A BG ####[address] [place], [place] Oxygen (Bld) [Partial pressure] 116.1 mm[Hg] High 80.0-100.0 [facility] Comment on above: Performed By: #### A BG ####[address] [place], [place] Oxygen saturation in Blood 97.5 % Normal 95.0-100.0 [facility] Comment on above: Performed By: #### A BG ####[address] [place], [place] pCO2 50.5 mm[Hg] High 35.0-45.0 [facility] Comment on above: Performed By: #### A BG ####[address] [place], [place] pH 7.416 Normal 7.350-7.450 [facility] Comment on above: Performed By: #### A BG ####[address] [place], [place] Std Base Excess 6.2 mmol/L High -3.0-3.0 [facility] Comment on above: Performed By: #### A BG ####[address] [place], [place] FIO2 45% Normal [facility] Comment on above: Performed By: #### A BG ####[address] CO2 [Moles/Vol] 32.7 mmol/L High 23.0-27.0 [facility] Comment on above: Performed By: #### A BG ####[address] HCO3 (Bld) [Moles/Vol] 31.3 mmol/L High 21.0-25.0 [facility] Comment on above: Performed By: #### A BG ####[address] Hemoglobin (Bld) [Mass/Vol] 11.2 g/dL Normal ScreenOnly [facility] Comment on above: Performed By: #### A BG ####[address] Oxygen (Bld) [Partial pressure] 92.6 mm[Hg] Normal 80.0-100.0 [facility] Comment on above: Performed By: #### A BG ####[address] Oxygen saturation in Blood 96.2 % Normal 95.0-100.0 [facility] Comment on above: Performed By: #### A BG ####[address] [place], [place] pCO2 48.5 mm[Hg] High 35.0-45.0 [facility] Comment on above: Performed By: #### A BG ####[address] [place], [place] pH 7.427 Normal 7.350-7.450 [facility] Comment on above: Performed By: #### A BG ####[address] [place], [place] Std Base Excess 6.0 mmol/L High -3.0-3.0 [facility] Comment on above: Performed By: #### A BG ####[address] [place], [place] FIO2 35% Normal [facility] Comment on above: Performed By: #### A BG ####[address] [place], [place] CO2 [Moles/Vol] 30.4 mmol/L High 23.0-27.0 [facility] Comment on above: Performed By: #### A BG ####[address] [place], [place] HCO3 (Bld) [Moles/Vol] 29.0 mmol/L High 21.0-25.0 [facility] Comment on above: Performed By: #### A BG ####[address] [place], [place] Hemoglobin (Bld) [Mass/Vol] 13.3 g/dL Normal ScreenOnly [facility] Comment on above: Performed By: #### A BG ####[address] [place], [place] Oxygen (Bld) [Partial pressure] 64.4 mm[Hg] Low 80.0-100.0 [facility] Comment on above: Performed By: #### A BG ####[address] Oxygen saturation in Blood 90.9 % Low 95.0-100.0 [facility] Comment on above: Performed By: #### A BG ####[address] [place], [place] pCO2 47.6 mm[Hg] High 35.0-45.0 [facility] Comment on above: Performed By: #### A BG ####[address] [place], [place] pH 7.402 Normal 7.350-7.450 [facility] Comment on above: Performed By: #### A BG ####[address] [place], [place] Std Base Excess 3.4 mmol/L High -3.0-3.0 [facility] Comment on above: Performed By: #### A BG ####[address] [place], [place] FIO2 No data Normal [facility] Comment on above: Performed By: #### A BG ####[address] CO2 [Moles/Vol] 31.7 mmol/L High 23.0-27.0 [facility] Comment on above: Performed By: #### A BG ####[address] [place], [place] HCO3 (Bld) [Moles/Vol] 30.3 mmol/L High 21.0-25.0 [facility] Comment on above: Performed By: #### A BG ####[address] [address] [place], [place] Hemoglobin (Bld) [Mass/Vol] 10.6 g/dL Normal ScreenOnly [facility] Comment on above: Performed By: #### A BG ####[address] [address] [place], [place] Oxygen (Bld) [Partial pressure] 79.8 mm[Hg] Low 80.0-100.0 [facility] Comment on above: Performed By: #### A BG ####[address] Oxygen saturation in Blood 94.3 % Low 95.0-100.0 [facility] Comment on above: Performed By: #### A BG ####[address] [place], [place] pCO2 45.7 mm[Hg] High 35.0-45.0 [facility] Comment on above: Performed By: #### A BG ####[address] [place], [place] pH 7.439 Normal 7.350-7.450 [facility] Comment on above: Performed By: #### A BG ####[address] [place], [place] Std Base Excess 5.4 mmol/L High -3.0-3.0 [facility] Comment on above: Performed By: #### A BG ####[address] [place], [place] FIO2 No data Normal [facility] Comment on above: Performed By: #### A BG ####[address] [place], [place] Basic Metabolic Panelon 07-1 -2020 Calcium [Mass/Vol] 8.1 mg/dL Low 8.4-10.4 [facility] Comment on above: Performed By: #### L FT3, FERR3, HEMDF, DDI2, ICA, LDH3, BMP3M, MG3, CRP2, PHOS3 ####[address] [place], [place] Glucose [Mass/Vol] 123 mg/dL High 70-100 [facility] Comment on above: Performed By: #### L FT3, FERR3, HEMDF, DDI2, ICA, LDH3, BMP3M, MG3, CRP2, PHOS3 ####[address] [place], [place] Anion gap [Moles/Vol] 4 mmol/L Normal 3-13 [facility] Comment on above: Performed By: #### L FT3, FERR3, HEMDF, DDI2, ICA, LDH3, BMP3M, MG3, CRP2, PHOS3 ####[address] [address] [place], [place] CO2 [Moles/Vol] 30 mmol/L Normal 22-30 [facility] Comment on above: Performed By: #### L FT3, FERR3, HEMDF, DDI2, ICA, LDH3, BMP3M, MG3, CRP2, PHOS3 ####[address] [place], [place] Urea nitrogen [Mass/Vol] 64 mg/dL High 7-20 [facility] Comment on above: Performed By: #### L FT3, FERR3, HEMDF, DDI2, ICA, LDH3, BMP3M, MG3, CRP2, PHOS3 ####[address] [place], [place] Creatinine [Mass/Vol] 1.04 mg/dL Normal 0.52-1.25 [facility] Comment on above: Performed By: #### L FT3, FERR3, HEMDF, DDI2, ICA, LDH3, BMP3M, MG3, CRP2, PHOS3 ####[address] GFR/1.73 sq M.predicted among blacks MDRD (S/P/Bld) [Vol rate/Area] 70.9 mL/min/{1.73_m2} Normal >60 [facility] Comment on above: Performed By: #### L FT3, FERR3, HEMDF, DDI2, ICA, LDH3, BMP3M, MG3, CRP2, PHOS3 ####[address] GFR/1.73 sq M.predicted among non-blacks MDRD (S/P/Bld) [Vol rate/Area] 61.2 mL/min/{1.73_m2} Normal >60 [facility] Comment on above: Result Comment: KDIG O guidelines provide the following GFR categories:Stage GFR(ml/min/1.73 m2) TermsG1 >=90 Normal or highG2 60-89 Mildly decreased*G3a 45-59 Mildly to moderately lzhvstuwhA4g 30-44 Moderately to severely decreasedG4 15-29 Severely [...] DDI2, ICA, LDH3, BMP3M, MG3, CRP2, PHOS3 ####[address] Potassium [Moles/Vol] 4.5 mmol/L Normal 3.5-5.1 [facility] Comment on above: Performed By: #### L FT3, FERR3, HEMDF, DDI2, ICA, LDH3, BMP3M, MG3, CRP2, PHOS3 ####[address] Sodium [Moles/Vol] 142 mmol/L Normal 135-145 [facility] Comment on above: Performed By: #### L FT3, FERR3, HEMDF, DDI2, ICA, LDH3, BMP3M, MG3, CRP2, PHOS3 ####[address] Chloride [Moles/Vol] 107 mmol/L Normal 98-107 [facility] Comment on above: Performed By: #### L FT3, FERR3, HEMDF, DDI2, ICA, LDH3, BMP3M, MG3, CRP2, PHOS3 ####[address] C-Reactive Proteinon 06-08- 021 CRP [Mass/Vol] 19.8 mg/L High 0.0-6.0 [facility] Comment on above: Result Comment: . Performed By: #### L FT3, FERR3, HEMDF, DDI2, ICA, LDH3, BMP3M, MG3, CRP2, PHOS3 ####[facility] [employer] [id number] [place] [address] CR Chest Portableon 06-08-20 21 CR Chest Portable [facility] Calcium,Ionizedon 06-08-2021 Ionized Ca,Measured 4.30 mg/dL Normal 4.30-5.20 [facility] Comment on above: Performed By: #### L FT3, FERR3, HEMDF, DDI2, ICA, LDH3, BMP3M, MG3, CRP2, PHOS3 ####[facility] [employer] [id number] [place] [address] pH, Ionized Calcium 7.43 Normal 7.31-7.46 [facility] Comment on above: Performed By: #### L FT3, FERR3, HEMDF, DDI2, ICA, LDH3, BMP3M, MG3, CRP2, PHOS3 ####[facility] [employer] [id number] [place] [address] D-Dimer, Innovanceon 021 D-Dimer, [employer]ance 25.13 mg/L High <0.19-0.50 [facility] Comment on above: Result Comment: Inno carrington D-Dimer values of <0.50 mg/L FEU can be used incombination with a pre-test probability model (e.g. Well's)to exclude pulmonary embolism (PE) disease, as well as jodi in the diagnosis of deep vein thrombosis (DVT). Performed By: #### L FT3, FERR3, HEMDF, DDI2, ICA, LDH3, BMP3M, MG3, CRP2, PHOS3 ####[facility] [employer] [id number] [place] [address] Ferritinon 06-08-2021 Ferritin [Mass/Vol] 72 ng/mL Normal 8-252 [facility] Comment on above: Performed By: #### L FT3, FERR3, HEMDF, DDI2, ICA, LDH3, BMP3M, MG3, CRP2, PHOS3 ####[facility] [employer] [id number] [place] [address] Glucose,Bedsideon 06-08-2021 Glucose [Mass/Vol] 165 mg/dL High 70-100 [facility] Comment on above: Result Comment: Test performed by glucose meter. Results may be 10%-15% lowerthan serum/plasma values. (CLIA ID [id number]) Performed By: #### B GLU ####[address] [place], [place] Glucose [Mass/Vol] 155 mg/dL High 70-100 [facility] Comment on above: Result Comment: Test performed by glucose meter. Results may be 10%-15% lowerthan serum/plasma values. (CLIA ID [id number]) Performed By: #### B GLU ####[address] [place], [place] Glucose [Mass/Vol] 122 mg/dL [facility] 70-100 [facility] Comment on above: Result Comment: Test performed by glucose meter. Results may be 10%-15% lowerthan serum/plasma values. (CLIA ID [id number]) Performed By: #### B GLU ####[facility] [employer] [address] Glucose [Mass/Vol] 130 mg/dL [facility] [address] Comment on above: Result Comment: Test performed by glucose meter. Results may be 10%-15% lowerthan serum/plasma values. (CLIA ID [id number]) Performed By: #### B GLU ####[facility] [employer] [address] Hemogram w/ Autodiffon 06-08 Abs Baso Cnt 0.0 10*3/uL Normal 0.0-0.2 [facility] Comment on above: Performed By: #### L FT3, FERR3, HEMDF, DDI2, ICA, LDH3, BMP3M, MG3, CRP2, PHOS3 ####[facility] [employer] [id number] [place], [place] Abs Neutrophile Cnt 5.7 10*3/uL Normal 1.8-7.0 [facility] Comment on above: Performed By: #### L FT3, FERR3, HEMDF, DDI2, ICA, LDH3, BMP3M, MG3, CRP2, PHOS3 ####[address] Basophils/100 WBC (Bld) 0.1 % Normal 0.0-2.0 [facility] Comment on above: Performed By: #### L FT3, FERR3, HEMDF, DDI2, ICA, LDH3, BMP3M, MG3, CRP2, PHOS3 ####[address] Eosinophils (Bld) [#/Vol] 0.0 10*3/uL Normal 0.0-0.5 [facility] Comment on above: Performed By: #### L FT3, FERR3, HEMDF, DDI2, ICA, LDH3, BMP3M, MG3, CRP2, PHOS3 ####[address] Eosinophils/100 WBC (Bld) 0.5 % Low 1.0-6.0 [facility] Comment on above: Performed By: #### L FT3, FERR3, HEMDF, DDI2, ICA, LDH3, BMP3M, MG3, CRP2, PHOS3 ####[address] Erythrocyte distribution width (RBC) [Ratio] 20.1 % High 11.5-14.5 [facility] Comment on above: Performed By: #### L FT3, FERR3, HEMDF, DDI2, ICA, LDH3, BMP3M, MG3, CRP2, PHOS3 ####[address] Granulocytes/100 WBC (Bld) 81.8 % High 40.0-80.0 [facility] Comment on above: Performed By: #### L FT3, FERR3, HEMDF, DDI2, ICA, LDH3, BMP3M, MG3, CRP2, PHOS3 ####[address] Hematocrit (Bld) [Volume fraction] 31.8 % Low 35.0-47.0 [facility] Comment on above: Performed By: #### L FT3, FERR3, HEMDF, DDI2, ICA, LDH3, BMP3M, MG3, CRP2, PHOS3 ####[address] Hemoglobin (Bld) [Mass/Vol] 10.0 g/dL Low 11.7-16.0 [facility] Comment on above: Performed By: #### L FT3, FERR3, HEMDF, DDI2, ICA, LDH3, BMP3M, MG3, CRP2, PHOS3 ####[address] Lymphocytes (Bld) [#/Vol] 0.7 10*3/uL Low 1.0-4.3 [facility] Comment on above: Performed By: #### L FT3, FERR3, HEMDF, DDI2, ICA, LDH3, BMP3M, MG3, CRP2, PHOS3 ####[address] Lymphocytes/100 WBC (Bld) 9.6 % Low 20.0-40.0 [facility] Comment on above: Performed By: #### L FT3, FERR3, HEMDF, DDI2, ICA, LDH3, BMP3M, MG3, CRP2, PHOS3 ####[address] MCH (RBC) [Entitic mass] 22.0 pg Low 26.0-34.0 [facility] Comment on above: Performed By: #### L FT3, FERR3, HEMDF, DDI2, ICA, LDH3, BMP3M, MG3, CRP2, PHOS3 ####[address] MCHC 31.5 % Low 32.0-36.0 [facility] Comment on above: Performed By: #### L FT3, FERR3, HEMDF, DDI2, ICA, LDH3, BMP3M, MG3, CRP2, PHOS3 ####[address] MCV (RBC) [Entitic vol] 69.9 fL Low 79.0-98.0 [facility] Comment on above: Performed By: #### L FT3, FERR3, HEMDF, DDI2, ICA, LDH3, BMP3M, MG3, CRP2, PHOS3 ####[address] Monocytes (Bld) [#/Vol] 0.6 10*3/uL Normal 0.0-0.8 [facility] Comment on above: Performed By: #### L FT3, FERR3, HEMDF, DDI2, ICA, LDH3, BMP3M, MG3, CRP2, PHOS3 ####[address] Monocytes/100 WBC (Bld) 8.0 % Normal 2.0-10.0 [facility] Comment on above: Performed By: #### L FT3, FERR3, HEMDF, DDI2, ICA, LDH3, BMP3M, MG3, CRP2, PHOS3 ####[address] [place], [place] Platelet mean volume (Bld) [Entitic vol] 8.2 fL Normal 7.4-10.4 [facility] Comment on above: Performed By: #### L FT3, FERR3, HEMDF, DDI2, ICA, LDH3, BMP3M, MG3, CRP2, PHOS3 ####[address] Platelets (Bld) [#/Vol] 213 10*3/uL Normal 140-440 [facility] Comment on above: Performed By: #### L FT3, FERR3, HEMDF, DDI2, ICA, LDH3, BMP3M, MG3, CRP2, PHOS3 ####[address] RBC (Bld) [#/Vol] 4.55 10*6/uL Normal 3.80-5.20 [facility] Comment on above: Performed By: #### L FT3, FERR3, HEMDF, DDI2, ICA, LDH3, BMP3M, MG3, CRP2, PHOS3 ####[address] [place], [place] WBC (Bld) [#/Vol] 7.0 10*3/uL Normal 3.6-10.7 [facility] Comment on above: Performed By: #### L FT3, FERR3, HEMDF, DDI2, ICA, LDH3, BMP3M, MG3, CRP2, PHOS3 ####[address] [place], [place] Hepatic Functionon 1 ALT [Catalytic activity/Vol] 126 U/L High 0-34 [facility] Comment on above: Result Comment: The ALT test is performed by an updated assay method.Please note that the reference intervals have beenchanged and are now sex specific. Performed By: #### L FT3, FERR3, HEMDF, DDI2, ICA, LDH3, BMP3M, MG3, CRP2, PHOS3 ####[address] ALP [Catalytic activity/Vol] 75 U/L Normal 38-126 [facility] Comment on above: Performed By: #### L FT3, FERR3, HEMDF, DDI2, ICA, LDH3, BMP3M, MG3, CRP2, PHOS3 ####[address] [place], [place] AST [Catalytic activity/Vol] 86 U/L High 15-46 [facility] Comment on above: Performed By: #### L FT3, FERR3, HEMDF, DDI2, ICA, LDH3, BMP3M, MG3, CRP2, PHOS3 ####[address] [place], [place] Bilirubin [Mass/Vol] 0.3 mg/dL Normal 0.2-1.3 [facility] Comment on above: Performed By: #### L FT3, FERR3, HEMDF, DDI2, ICA, LDH3, BMP3M, MG3, CRP2, PHOS3 ####[address] Bilirubin.indirect [Mass/Vol] 0.0 mg/dL Normal 0.0-0.3 [facility] Comment on above: Performed By: #### L FT3, FERR3, HEMDF, DDI2, ICA, LDH3, BMP3M, MG3, CRP2, PHOS3 ####[address] Protein [Mass/Vol] 5.9 g/dL Low 6.3-8.2 [facility] Comment on above: Performed By: #### L FT3, FERR3, HEMDF, DDI2, ICA, LDH3, BMP3M, MG3, CRP2, PHOS3 ####[address] Albumin [Mass/Vol] 2.9 g/dL Low 3.5-5.0 [facility] Comment on above: Performed By: #### L FT3, FERR3, HEMDF, DDI2, ICA, LDH3, BMP3M, MG3, CRP2, PHOS3 ####[address] [place], [place] LDHon 06-08-2021 LDH 291 U/L High 120-246 [facility] Comment on above: Performed By: #### L FT3, FERR3, HEMDF, DDI2, ICA, LDH3, BMP3M, MG3, CRP2, PHOS3 ####[address] [place], [place] Magnesiumon 06-08-2021 Magnesium [Mass/Vol] 2.4 mg/dL High 1.6-2.3 [facility] Comment on above: Performed By: #### L FT3, FERR3, HEMDF, DDI2, ICA, LDH3, BMP3M, MG3, CRP2, PHOS3 ####[address] Phosphoruson 07-10-2021 Phosphate [Mass/Vol] 4.3 mg/dL Normal 2.5-4.5 [facility] Comment on above: Performed By: #### L FT3, FERR3, HEMDF, DDI2, ICA, LDH3, BMP3M, MG3, CRP2, PHOS3 ####[address] Procalcitoninon 06-08-2021 Procalcitonin 0.06 ng/mL Normal 0.00-0.09 [facility] Comment on above: Performed By: #### P OLESYA ####[address] Interpretation See Below Normal [facility] Comment on above: Result Comment: PCT <0.50 = Low risk of severe sepsis and/or septic shock.PCT >2.00 = High risk of severe sepsis and/or septic shock. Performed By: #### P OLESYA ####[address] Procalcitonin 0.07 ng/mL Normal 0.00-0.09 [facility] Comment on above: Performed By: #### D DI2, MG3, HEMDF, PHOS3, ICA, BMP3M, CRP2, LDH3, LFT3, FERR3, PCAL ####[address] Interpretation See Below Normal [facility] Comment on above: Result Comment: PCT <0.50 = Low risk of severe sepsis and/or septic shock.PCT >2.00 = High risk of severe sepsis and/or septic shock. Performed By: #### D DI2, MG3, HEMDF, PHOS3, ICA, BMP3M, CRP2, LDH3, LFT3, FERR3, PCAL ####[address] STAIN GRAMon 06-08-2021 STAIN GRAM STAIN GRAM --> Statu s: F Many polymorphonuclear cells/lpf. No epithelial cells/lpf. Few yeast. No epithelial cells/lpf. Few yeast. Normal [facility] Comment on above: Performed By: #### C S/RE, S/GRM ####[address] [place], [place] VL Venous Duplex US Lower Ex t Bilateralon 06-08-2021 VL Venous Duplex US Lower Ext Bilateral Normal [facility] Arterial Blood Gaseson 06-07 CO2 [Moles/Vol] 32.6 mmol/L High 23.0-27.0 [facility] Comment on above: Performed By: #### A BG ####[address] [address] [place], [place] HCO3 (Bld) [Moles/Vol] 31.1 mmol/L High 21.0-25.0 [facility] Comment on above: Performed By: #### A BG ####[address] Hemoglobin (Bld) [Mass/Vol] 11.1 g/dL Normal ScreenOnly [facility] Comment on above: Performed By: #### A BG ####[id number] [place], [place] Oxygen (Bld) [Partial pressure] 72.8 mm[Hg] Low 80.0-100.0 [facility] Comment on above: Performed By: #### A BG ####[address] Oxygen saturation in Blood 93.2 % Low 95.0-100.0 [facility] Comment on above: Performed By: #### A BG ####[address] pCO2 47.1 mm[Hg] High 35.0-45.0 [facility] Comment on above: Performed By: #### A BG ####[id number] [place], [place] pH 7.438 Normal 7.350-7.450 [facility] Comment on above: Performed By: #### A BG ####[address] Std Base Excess 6.1 mmol/L High -3.0-3.0 [facility] Comment on above: Performed By: #### A BG ####[id number] [place], [place] FIO2 No data Normal [facility] Comment on above: Performed By: #### A BG ####[id number] [place], [place] CO2 [Moles/Vol] 32.1 mmol/L High 23.0-27.0 [facility] Comment on above: Performed By: #### A BG ####[id number] [place], [place] HCO3 (Bld) [Moles/Vol] 30.6 mmol/L High 21.0-25.0 [facility] Comment on above: Performed By: #### A BG ####[address] Hemoglobin (Bld) [Mass/Vol] 11.2 g/dL Normal ScreenOnly [facility] Comment on above: Performed By: #### A BG ####[address] Oxygen (Bld) [Partial pressure] 103.3 mm[Hg] High 80.0-100.0 [facility] Comment on above: Performed By: #### A BG ####[address] Oxygen saturation in Blood 96.9 % Normal 95.0-100.0 [facility] Comment on above: Performed By: #### A BG ####[id number] [place], [place] pCO2 49.2 mm[Hg] High 35.0-45.0 [facility] Comment on above: Performed By: #### A BG ####[id number] [place], [place] pH 7.411 Normal 7.350-7.450 [facility] Comment on above: Performed By: #### A BG ####[address] [place], [place] Std Base Excess 5.1 mmol/L High -3.0-3.0 [facility] Comment on above: Performed By: #### A BG ####[address] [address] [place], [place] FIO2 35% Normal [facility] Comment on above: Performed By: #### A BG ####[address] [address] [place], [place] CO2 [Moles/Vol] 30.4 mmol/L High 23.0-27.0 [facility] Comment on above: Performed By: #### A BG ####[address] HCO3 (Bld) [Moles/Vol] 28.9 mmol/L High 21.0-25.0 [facility] Comment on above: Performed By: #### A BG ####[address] Hemoglobin (Bld) [Mass/Vol] 11.0 g/dL Normal ScreenOnly [facility] Comment on above: Performed By: #### A BG ####[address] Oxygen (Bld) [Partial pressure] 98.0 mm[Hg] Normal 80.0-100.0 [facility] Comment on above: Performed By: #### A BG ####[address] Oxygen saturation in Blood 97.0 % Normal 95.0-100.0 [facility] Comment on above: Performed By: #### A BG ####[address] pCO2 51.3 mm[Hg] High 35.0-45.0 [facility] Comment on above: Performed By: #### A BG ####[address] pH 7.368 Normal 7.350-7.450 [facility] Comment on above: Performed By: #### A BG ####[address] [place], [place] Std Base Excess 2.8 mmol/L Normal -3.0-3.0 [facility] Comment on above: Performed By: #### A BG ####[address] [place], [place] FIO2 No data Normal [facility] Comment on above: Performed By: #### A BG ####[address] [address] [place], [place] CO2 [Moles/Vol] 30.2 mmol/L High 23.0-27.0 [facility] Comment on above: Performed By: #### A BG ####[address] HCO3 (Bld) [Moles/Vol] 28.7 mmol/L High 21.0-25.0 [facility] Comment on above: Performed By: #### A BG ####[address] Hemoglobin (Bld) [Mass/Vol] 10.8 g/dL Normal ScreenOnly [facility] Comment on above: Performed By: #### A BG ####[address] [place], [place] Oxygen (Bld) [Partial pressure] 112.4 mm[Hg] High 80.0-100.0 [facility] Comment on above: Performed By: #### A BG ####[address] Oxygen saturation in Blood 97.5 % Normal 95.0-100.0 [facility] Comment on above: Performed By: #### A BG ####[address] [place], [place] pCO2 47.0 mm[Hg] High 35.0-45.0 [facility] Comment on above: Performed By: #### A BG ####[address] [place] pH 7.404 Normal 7.350-7.450 [facility] Comment on above: Performed By: #### A BG ####[address] [place], [place] Std Base Excess 3.4 mmol/L High -3.0-3.0 [facility] Comment on above: Performed By: #### A BG ####[address] FIO2 No data Normal [facility] Comment on above: Performed By: #### A BG ####[address] Basic Metabolic Panelon 07-0 Calcium [Mass/Vol] 8.2 mg/dL Low 8.4-10.4 [facility] Comment on above: Performed By: #### D DI2, MG3, HEMDF, PHOS3, ICA, BMP3M, CRP2, LDH3, LFT3, FERR3, PCAL ####[address] Glucose [Mass/Vol] 109 mg/dL High 70-100 [facility] Comment on above: Performed By: #### D DI2, MG3, HEMDF, PHOS3, ICA, BMP3M, CRP2, LDH3, LFT3, FERR3, PCAL ####[address] [place], [place] Urea nitrogen [Mass/Vol] 53 mg/dL High 7-20 [facility] Comment on above: Performed By: #### D DI2, MG3, HEMDF, PHOS3, ICA, BMP3M, CRP2, LDH3, LFT3, FERR3, PCAL ####[address] [place], [place] Anion gap [Moles/Vol] 5 mmol/L Normal 3-13 [facility] Comment on above: Performed By: #### D DI2, MG3, HEMDF, PHOS3, ICA, BMP3M, CRP2, LDH3, LFT3, FERR3, PCAL ####[address] [place], [place] CO2 [Moles/Vol] 28 mmol/L Normal 22-30 [facility] Comment on above: Performed By: #### D DI2, MG3, HEMDF, PHOS3, ICA, BMP3M, CRP2, LDH3, LFT3, FERR3, PCAL ####[address] [place], [place] Creatinine [Mass/Vol] 0.95 mg/dL Normal 0.52-1.25 [facility] Comment on above: Performed By: #### D DI2, MG3, HEMDF, PHOS3, ICA, BMP3M, CRP2, LDH3, LFT3, FERR3, PCAL ####[address] [place], [place] GFR/1.73 sq M.predicted among blacks MDRD (S/P/Bld) [Vol rate/Area] 79.1 mL/min/{1.73_m2} Normal >60 [facility] Comment on above: Performed By: #### D DI2, MG3, HEMDF, PHOS3, ICA, BMP3M, CRP2, LDH3, LFT3, FERR3, PCAL ####[address] [place], [place] GFR/1.73 sq M.predicted among non-blacks MDRD (S/P/Bld) [Vol rate/Area] 68.2 mL/min/{1.73_m2} Normal >60 [facility] Comment on above: Result Comment: KDIG O guidelines provide the following GFR categories:Stage GFR(ml/min/1.73 m2) TermsG1 >=90 Normal or highG2 60-89 Mildly decreased*G3a 45-59 Mildly to moderately [id number] 30-44 Moderately to severely decreasedG4 15-29 Severely decreasedG5 <15 Kidney failure*Relative to young adult level.In the absence of evidence of kidney damage, neither GFRcategory G1 nor G2 fulfill the criteria for CKD.The CKD-EPI equation is validated in individuals 18 yearsof age and older. Currently the best equation forestatrium health kannapolisting glomerular filtration rate (GFR) from serumcreatinine in children is the Bedside Arechiga equation.It is less accurate in patients with extremes of musclemass, restriction of dietary protein, ingestion of creatine,extra-renal metabolism of creatinine, or treatment withmedications that affect renal tubular creatinine secretion. Performed By: #### D DI2, MG3, HEMDF, PHOS3, ICA, BMP3M, CRP2, LDH3, LFT3, FERR3, PCAL ####[address] Potassium [Moles/Vol] 4.4 mmol/L Normal 3.5-5.1 [facility] Comment on above: Performed By: #### D DI2, MG3, HEMDF, PHOS3, ICA, BMP3M, CRP2, LDH3, LFT3, FERR3, PCAL ####[address] Chloride [Moles/Vol] 107 mmol/L Normal 98-107 [facility] Comment on above: Performed By: #### D DI2, MG3, HEMDF, PHOS3, ICA, BMP3M, CRP2, LDH3, LFT3, FERR3, PCAL ####[address] Sodium [Moles/Vol] 140 mmol/L Normal 135-145 [facility] Comment on above: Performed By: #### D DI2, MG3, HEMDF, PHOS3, ICA, BMP3M, CRP2, LDH3, LFT3, FERR3, PCAL ####[address] C-Reactive Proteinon 021 CRP [Mass/Vol] 29.6 mg/L High 0.0-6.0 [facility] Comment on above: Result Comment: . Performed By: #### D DI2, MG3, HEMDF, PHOS3, ICA, BMP3M, CRP2, LDH3, LFT3, FERR3, PCAL ####[address] [place], [place] CR Chest Portableon 06-07-20 21 CR Chest Portable Normal [facility] Calcium,Ionizedon 06-07-2021 Ionized Ca,Measured 4.40 mg/dL Normal 4.30-5.20 [facility] Comment on above: Performed By: #### D DI2, MG3, HEMDF, PHOS3, ICA, BMP3M, CRP2, LDH3, LFT3, FERR3, PCAL ####[facility] [employer] [id number] [place] [address] pH, Ionized Calcium 7.39 Normal 7.31-7.46 [facility] Comment on above: Performed By: #### D DI2, MG3, HEMDF, PHOS3, ICA, BMP3M, CRP2, LDH3, LFT3, FERR3, PCAL ####[facility] [employer] [place] [address] D-Dimer, Innovanceon 021 D-Dimer, [employer] 26.90 mg/L High <0.19-0.50 [facility] Comment on above: Result Comment: Inno carrington D-Dimer values of <0.50 mg/L FEU can be used incombination with a pre-test probability model (e.g. Well's)to exclude pulmonary embolism (PE) disease, as well as jodi in the diagnosis of deep vein thrombosis (DVT). Performed By: #### D DI2, MG3, HEMDF, PHOS3, ICA, BMP3M, CRP2, LDH3, LFT3, FERR3, PCAL ####[facility] [employer] [id number] [place] [address] Ferritinon 06-07-2021 Ferritin [Mass/Vol] 104 ng/mL Normal 8-252 [facility] Comment on above: Performed By: #### D DI2, MG3, HEMDF, PHOS3, ICA, BMP3M, CRP2, LDH3, LFT3, FERR3, PCAL ####[facility] [employer] [id number] [place] [address] Glucose,Bedsideon 06-07-2021 Glucose [Mass/Vol] 156 mg/dL High 70-100 [facility] Comment on above: Result Comment: Test performed by glucose meter. Results may be 10%-15% lowerthan serum/plasma values. (CLIA ID [id number]) Performed By: #### B GLU ####[facility] [employer] [id number] [place], [place] Glucose [Mass/Vol] 151 mg/dL High 70-100 [facility] Comment on above: Result Comment: Test performed by glucose meter. Results may be 10%-15% lowerthan serum/plasma values. (CLIA ID [id number]) Performed By: #### B GLU ####[facility] [employer] [id number] [place], [place] Glucose [Mass/Vol] 100 mg/dL Normal 70-100 [facility] Comment on above: Result Comment: Test performed by glucose meter. Results may be 10%-15% lowerthan serum/plasma values. (CLIA ID [id number]) Performed By: #### B GLU ####[facility] [employer] [address] Glucose [Mass/Vol] 126 mg/dL High 70-100 [facility] Comment on above: Result Comment: Test performed by glucose meter. Results may be 10%-15% lowerthan serum/plasma values. (CLIA ID [id number]) Performed By: #### B GLU ####[address] Hemogram w/ Autodiffon 06-07 Abs Baso Cnt 0.0 10*3/uL Normal 0.0-0.[address] [facility] Comment on above: Performed By: #### D DI2, MG3, HEMDF, PHOS3, ICA, BMP3M, CRP2, LDH3, LFT3, FERR3, PCAL ####[facility] [employer] [id number] [place], [place] Abs Neutrophile Cnt 3.2 10*3/uL Normal 1.8-7.0 [facility] Comment on above: Performed By: #### D DI2, MG3, HEMDF, PHOS3, ICA, BMP3M, CRP2, LDH3, LFT3, FERR3, PCAL ####[address] Basophils/100 WBC (Bld) 0.5 % Normal 0.0-2.0 [facility] Comment on above: Performed By: #### D DI2, MG3, HEMDF, PHOS3, ICA, BMP3M, CRP2, LDH3, LFT3, FERR3, PCAL ####[address] Eosinophils (Bld) [#/Vol] 0.0 10*3/uL Normal 0.0-0.5 [facility] Comment on above: Performed By: #### D DI2, MG3, HEMDF, PHOS3, ICA, BMP3M, CRP2, LDH3, LFT3, FERR3, PCAL ####[address] Eosinophils/100 WBC (Bld) 0.5 % Low 1.0-6.0 [facility] Comment on above: Performed By: #### D DI2, MG3, HEMDF, PHOS3, ICA, BMP3M, CRP2, LDH3, LFT3, FERR3, PCAL ####[address] Erythrocyte distribution width (RBC) [Ratio] 21.1 % High 11.5-14.5 [facility] Comment on above: Performed By: #### D DI2, MG3, HEMDF, PHOS3, ICA, BMP3M, CRP2, LDH3, LFT3, FERR3, PCAL ####[address] Granulocytes/100 WBC (Bld) 72.5 % Normal 40.0-80.0 [facility] Comment on above: Performed By: #### D DI2, MG3, HEMDF, PHOS3, ICA, BMP3M, CRP2, LDH3, LFT3, FERR3, PCAL ####[address] Hematocrit (Bld) [Volume fraction] 33.3 % Low 35.0-47.0 [facility] Comment on above: Performed By: #### D DI2, MG3, HEMDF, PHOS3, ICA, BMP3M, CRP2, LDH3, LFT3, FERR3, PCAL ####[address] [place], [place] Hemoglobin (Bld) [Mass/Vol] 10.6 g/dL Low 11.7-16.0 [facility] Comment on above: Performed By: #### D DI2, MG3, HEMDF, PHOS3, ICA, BMP3M, CRP2, LDH3, LFT3, FERR3, PCAL ####[address] [place], [place] Lymphocytes (Bld) [#/Vol] 0.7 10*3/uL Low 1.0-4.3 [facility] Comment on above: Performed By: #### D DI2, MG3, HEMDF, PHOS3, ICA, BMP3M, CRP2, LDH3, LFT3, FERR3, PCAL ####[address] Lymphocytes/100 WBC (Bld) 16.0 % Low 20.0-40.0 [facility] Comment on above: Performed By: #### D DI2, MG3, HEMDF, PHOS3, ICA, BMP3M, CRP2, LDH3, LFT3, FERR3, PCAL ####[address] MCH (RBC) [Entitic mass] 22.6 pg Low 26.0-34.0 [facility] Comment on above: Performed By: #### D DI2, MG3, HEMDF, PHOS3, ICA, BMP3M, CRP2, LDH3, LFT3, FERR3, PCAL ####[address] [place], [place] MCHC 31.7 % Low 32.0-36.0 [facility] Comment on above: Performed By: #### D DI2, MG3, HEMDF, PHOS3, ICA, BMP3M, CRP2, LDH3, LFT3, FERR3, PCAL ####[address] [place], [place] MCV (RBC) [Entitic vol] 71.3 fL Low 79.0-98.0 [facility] Comment on above: Performed By: #### D DI2, MG3, HEMDF, PHOS3, ICA, BMP3M, CRP2, LDH3, LFT3, FERR3, PCAL ####[address] Monocytes (Bld) [#/Vol] 0.5 10*3/uL Normal 0.0-0.8 [facility] Comment on above: Performed By: #### D DI2, MG3, HEMDF, PHOS3, ICA, BMP3M, CRP2, LDH3, LFT3, FERR3, PCAL ####[address] Monocytes/100 WBC (Bld) 10.5 % High 2.0-10.0 [facility] Comment on above: Performed By: #### D DI2, MG3, HEMDF, PHOS3, ICA, BMP3M, CRP2, LDH3, LFT3, FERR3, PCAL ####[address] Platelet mean volume (Bld) [Entitic vol] 8.3 fL Normal 7.4-10.4 [facility] Comment on above: Performed By: #### D DI2, MG3, HEMDF, PHOS3, ICA, BMP3M, CRP2, LDH3, LFT3, FERR3, PCAL ####[address] [place], [place] Platelets (Bld) [#/Vol] 194 10*3/uL Normal 140-440 [facility] Comment on above: Performed By: #### D DI2, MG3, HEMDF, PHOS3, ICA, BMP3M, CRP2, LDH3, LFT3, FERR3, PCAL ####[address] [place] RBC (Bld) [#/Vol] 4.67 10*6/uL Normal 3.80-5.20 [facility] Comment on above: Performed By: #### D DI2, MG3, HEMDF, PHOS3, ICA, BMP3M, CRP2, LDH3, LFT3, FERR3, PCAL ####[address] [place] WBC (Bld) [#/Vol] 4.5 10*3/uL Normal 3.6-10.7 [facility] Comment on above: Performed By: #### D DI2, MG3, HEMDF, PHOS3, ICA, BMP3M, CRP2, LDH3, LFT3, FERR3, PCAL ####[address] [place], [place] Hepatic Functionon 1 ALP [Catalytic activity/Vol] 82 U/L Normal 38-126 [facility] Comment on above: Performed By: #### D DI2, MG3, HEMDF, PHOS3, ICA, BMP3M, CRP2, LDH3, LFT3, FERR3, PCAL ####[address] [place], [place] ALT [Catalytic activity/Vol] 138 U/L High 0-34 [facility] Comment on above: Result Comment: The ALT test is performed by an updated assay method.Please note that the reference intervals have beenchanged and are now sex specific. Performed By: #### D DI2, MG3, HEMDF, PHOS3, ICA, BMP3M, CRP2, LDH3, LFT3, FERR3, PCAL ####[address] [place], [place] AST [Catalytic activity/Vol] 119 U/L High 15-46 [facility] Comment on above: Performed By: #### D DI2, MG3, HEMDF, PHOS3, ICA, BMP3M, CRP2, LDH3, LFT3, FERR3, PCAL ####[address] [place], [place] Protein [Mass/Vol] 6.0 g/dL Low 6.3-8.2 [facility] Comment on above: Performed By: #### D DI2, MG3, HEMDF, PHOS3, ICA, BMP3M, CRP2, LDH3, LFT3, FERR3, PCAL ####[address] [place], [place] Bilirubin [Mass/Vol] 0.3 mg/dL Normal 0.2-1.3 [facility] Comment on above: Performed By: #### D DI2, MG3, HEMDF, PHOS3, ICA, BMP3M, CRP2, LDH3, LFT3, FERR3, PCAL ####[address] [place], [place] Bilirubin.indirect [Mass/Vol] 0.0 mg/dL Normal 0.0-0.3 [facility] Comment on above: Performed By: #### D DI2, MG3, HEMDF, PHOS3, ICA, BMP3M, CRP2, LDH3, LFT3, FERR3, PCAL ####[address] [place], [place] Albumin [Mass/Vol] 2.9 g/dL Low 3.5-5.0 [facility] Comment on above: Performed By: #### D DI2, MG3, HEMDF, PHOS3, ICA, BMP3M, CRP2, LDH3, LFT3, FERR3, PCAL ####[address] [place], [place] Interleukin 6on 06-07-2021 Interleukin 6 54.6 pg/mL High <=2.0 [facility] Comment on above: Result Comment: INTE RPRETIVE INFORMATION: CytokinesResults are used to understand the pathophysiology of immune,infectious, or inflammatory disorders, or may be used for researchpurposes.This test was developed and its performance characteristicsdetermined by [employer]. It has not been cleared orapproved by the [place] Food and Drug Administration. This test wasperformed in a CLIA certified laboratory and is intended forclinical purposes.Performed By: [address] [id number] Director: Merari Garcia MD Performed By: #### H BSAG, LFT3, HEMDF, HIV4, TROPN, MG3, BMP3M, DDI2, PHOS3, CRP2, HEPC, ICA, FERR3, LDH3 ####[address] #### IL6O, HBCAO ####The performing lab is in the report. LDHon 06-07-2021 LDH 370 U/L High 120-246 [facility] Comment on above: Performed By: #### D DI2, MG3, HEMDF, PHOS3, ICA, BMP3M, CRP2, LDH3, LFT3, FERR3, PCAL ####[address] Magnesiumon 06-07-2021 Magnesium [Mass/Vol] 2.5 mg/dL High 1.6-2.3 [facility] Comment on above: Performed By: #### D DI2, MG3, HEMDF, PHOS3, ICA, BMP3M, CRP2, LDH3, LFT3, FERR3, PCAL ####[address] [address] [place], [place] Phosphoruson 06-07-2021 Phosphate [Mass/Vol] 4.0 mg/dL Normal 2.5-4.5 [facility] Comment on above: Performed By: #### D DI2, MG3, HEMDF, PHOS3, ICA, BMP3M, CRP2, LDH3, LFT3, FERR3, PCAL ####[address] Troponin Ion 06-07-2021 Troponin I.cardiac [Mass/Vol] ng/mL Normal 0.000-0.034 [facility] Comment on above: Result Comment: . Performed By: #### T ROPN ####[address] [place], [place] Arterial Blood Gaseson 06-06 CO2 [Moles/Vol] 29.3 mmol/L High 23.0-27.0 [facility] Comment on above: Performed By: #### A BG ####[address] [place], [place] HCO3 (Bld) [Moles/Vol] 27.9 mmol/L High 21.0-25.0 [facility] Comment on above: Performed By: #### A BG ####[address] [address] [place], [place] Hemoglobin (Bld) [Mass/Vol] 10.7 g/dL Normal ScreenOnly [facility] Comment on above: Performed By: #### A BG ####[address] Oxygen (Bld) [Partial pressure] 86.6 mm[Hg] Normal 80.0-100.0 [facility] Comment on above: Performed By: #### A BG ####[address] Oxygen saturation in Blood 96.2 % Normal 95.0-100.0 [facility] Comment on above: Performed By: #### A BG ####[address] pCO2 46.9 mm[Hg] High 35.0-45.0 [facility] Comment on above: Performed By: #### A BG ####[address] [place], [place] pH 7.392 Normal 7.350-7.450 [facility] Comment on above: Performed By: #### A BG ####[address] Std Base Excess 2.5 mmol/L Normal -3.0-3.0 [facility] Comment on above: Performed By: #### A BG ####[address] FIO2 .50 Normal [facility] Comment on above: Performed By: #### A BG ####[address] [place] CO2 [Moles/Vol] 28.2 mmol/L High 23.0-27.0 [facility] Comment on above: Performed By: #### A BG ####[address] HCO3 (Bld) [Moles/Vol] 26.8 mmol/L High 21.0-25.0 [facility] Comment on above: Performed By: #### A BG ####[address] Hemoglobin (Bld) [Mass/Vol] 11.1 g/dL Normal ScreenOnly [facility] Comment on above: Performed By: #### A BG ####[address] Oxygen (Bld) [Partial pressure] 68.7 mm[Hg] Low 80.0-100.0 [facility] Comment on above: Performed By: #### A BG ####[address] Oxygen saturation in Blood 92.0 % Low 95.0-100.0 [facility] Comment on above: Performed By: #### A BG ####[address] pCO2 46.7 mm[Hg] High 35.0-45.0 [facility] Comment on above: Performed By: #### A BG ####[address] pH 7.376 Normal 7.350-7.450 [facility] Comment on above: Performed By: #### A BG ####[address] Std Base Excess 1.2 mmol/L Normal -3.0-3.0 [facility] Comment on above: Performed By: #### A BG ####[address] FIO2 .50 Normal [facility] Comment on above: Performed By: #### A BG ####[address] [place], [place] CO2 [Moles/Vol] 30.7 mmol/L High 23.0-27.0 [facility] Comment on above: Performed By: #### A BG ####[address] [place], [place] HCO3 (Bld) [Moles/Vol] 29.2 mmol/L High 21.0-25.0 [facility] Comment on above: Performed By: #### A BG ####[address] [place], [place] Hemoglobin (Bld) [Mass/Vol] 11.5 g/dL Normal ScreenOnly [facility] Comment on above: Performed By: #### A BG ####[address] [place], [place] Oxygen (Bld) [Partial pressure] 130.0 mm[Hg] High 80.0-100.0 [facility] Comment on above: Performed By: #### A BG ####[address] [place], [place] Oxygen saturation in Blood 98.0 % Normal 95.0-100.0 [facility] Comment on above: Performed By: #### A BG ####[address] [place], [place] pCO2 49.6 mm[Hg] High 35.0-45.0 [facility] Comment on above: Performed By: #### A BG ####[address] [place], [place] pH 7.388 Normal 7.350-7.450 [facility] Comment on above: Performed By: #### A BG ####[address] [place], [place] Std Base Excess 3.5 mmol/L High -3.0-3.0 [facility] Comment on above: Performed By: #### A BG ####[address] [place], [place] FIO2 60% Normal [facility] Comment on above: Performed By: #### A BG ####[address] [place], [place] Basic Metabolic Panelon 07-0 -2020 Calcium [Mass/Vol] 8.2 mg/dL Low 8.4-10.4 [facility] Comment on above: Performed By: #### M G3, TROPN, BMP3M, ICA, LDH3, HEMDF, CRP2, DDI2, FERR3, LFT3, PHOS3 ####[address] [place], [place] Glucose [Mass/Vol] 130 mg/dL High 70-100 [facility] Comment on above: Performed By: #### M G3, TROPN, BMP3M, ICA, LDH3, HEMDF, CRP2, DDI2, FERR3, LFT3, PHOS3 ####[address] [address] [place], [place] Anion gap [Moles/Vol] 8 mmol/L Normal 3-13 [facility] Comment on above: Performed By: #### M G3, TROPN, BMP3M, ICA, LDH3, HEMDF, CRP2, DDI2, FERR3, LFT3, PHOS3 ####[address] CO2 [Moles/Vol] 22 mmol/L Normal 22-30 [facility] Comment on above: Performed By: #### M G3, TROPN, BMP3M, ICA, LDH3, HEMDF, CRP2, DDI2, FERR3, LFT3, PHOS3 ####[address] [place], [place] Creatinine [Mass/Vol] 0.99 mg/dL Normal 0.52-1.25 [facility] Comment on above: Performed By: #### M G3, TROPN, BMP3M, ICA, LDH3, HEMDF, CRP2, DDI2, FERR3, LFT3, PHOS3 ####[address] [place], [place] GFR/1.73 sq M.predicted among blacks MDRD (S/P/Bld) [Vol rate/Area] 75.2 mL/min/{1.73_m2} Normal >60 [facility] Comment on above: Performed By: #### M G3, TROPN, BMP3M, ICA, LDH3, HEMDF, CRP2, DDI2, FERR3, LFT3, PHOS3 ####[id number] [place] GFR/1.73 sq M.predicted among non-blacks MDRD (S/P/Bld) [Vol rate/Area] 64.9 mL/min/{1.73_m2} Normal >60 [facility] Comment on above: Result Comment: KDIG O guidelines provide the following GFR categories:Stage GFR(ml/min/1.73 m2) TermsG1 >=90 Normal or highG2 60-89 Mildly decreased*G3a 45-59 Mildly to moderately [id number] 30-44 Moderately to severely decreasedG4 15-29 Severely [...] LDH3, HEMDF, CRP2, DDI2, FERR3, LFT3, PHOS3 ####[id number] [place] Urea nitrogen [Mass/Vol] 40 mg/dL High 7-20 [facility] Comment on above: Performed By: #### M G3, TROPN, BMP3M, ICA, LDH3, HEMDF, CRP2, DDI2, FERR3, LFT3, PHOS3 ####[id number] [place] [place] Potassium [Moles/Vol] 4.5 mmol/L Normal 3.5-5.1 [facility] Comment on above: Performed By: #### M G3, TROPN, BMP3M, ICA, LDH3, HEMDF, CRP2, DDI2, FERR3, LFT3, PHOS3 ####[address] [place], [place] Chloride [Moles/Vol] 107 mmol/L Normal 98-107 [facility] Comment on above: Performed By: #### M G3, TROPN, BMP3M, ICA, LDH3, HEMDF, CRP2, DDI2, FERR3, LFT3, PHOS3 ####[id number] [place], [place] Sodium [Moles/Vol] 138 mmol/L Normal 135-145 [facility] Comment on above: Performed By: #### M G3, TROPN, BMP3M, ICA, LDH3, HEMDF, CRP2, DDI2, FERR3, LFT3, PHOS3 ####[id number] [place], [place] C-Reactive Proteinon 021 CRP [Mass/Vol] 54.6 mg/L High 0.0-6.0 [facility] Comment on above: Result Comment: . Performed By: #### M G3, TROPN, BMP3M, ICA, LDH3, HEMDF, CRP2, DDI2, FERR3, LFT3, PHOS3 ####[id number] [place], [place] CR Chest Portableon 06-06-20 21 CR Chest Portable Normal [facility] CULT./ST. RESPIRATORYon 07-0 CULT./ST. RESPIRATORY CULT./ST. RESPIRAT ORY --> Status: F Few normal respiratory pretty. Normal [facility] Comment on above: Performed By: #### S /GRM, CS/RE ####[id number] [place], [place] Calcium,Ionizedon 06-06-2021 Ionized Ca,Measured 4.20 mg/dL Low 4.30-5.20 [facility] Comment on above: Performed By: #### M G3, TROPN, BMP3M, ICA, LDH3, HEMDF, CRP2, DDI2, FERR3, LFT3, PHOS3 ####[address] [place] [address] pH, Ionized Calcium 7.46 Normal 7.31-7.46 [facility] Comment on above: Performed By: #### M G3, TROPN, BMP3M, ICA, LDH3, HEMDF, CRP2, DDI2, FERR3, LFT3, PHOS3 ####[address] [facility] [place] [address] D-Dimer, Innovanceon 021 D-Dimer, Innovance 13.81 mg/L High <0.19-0.50 [facility] Comment on above: Result Comment: Inno car[place] D-Dimer values of <0.50 mg/L FEU can be used incombination with a pre-test probability model (e.g. Well's)to exclude pulmonary embolism (PE) disease, as well as jodi in the diagnosis of deep vein thrombosis (DVT). Performed By: #### M G3, TROPN, BMP3M, ICA, LDH3, HEMDF, CRP2, DDI2, FERR3, LFT3, PHOS3 ####[address] [place] [address] Ferritinon 06-06-2021 Ferritin [Mass/Vol] 138 ng/mL Normal 8-252 [facility] Comment on above: Performed By: #### M G3, TROPN, BMP3M, ICA, LDH3, HEMDF, CRP2, DDI2, FERR3, LFT3, PHOS3 ####[address] [facility] [address] Glucose,Bedsideon 06-06-2021 Glucose [Mass/Vol] 145 mg/dL High 70-100 [facility] Comment on above: Result Comment: Test performed by glucose meter. Results may be 10%-15% lowerthan serum/plasma values. (CLIA ID [id number]) Performed By: #### B GLU ####[address] [place], [place] Glucose [Mass/Vol] 159 mg/dL High 70-100 [facility] Comment on above: Result Comment: Test performed by glucose meter. Results may be 10%-15% lowerthan serum/plasma values. (CLIA ID [id number]) Performed By: #### B GLU ####[address] [place], [place] Glucose [Mass/Vol] 126 mg/dL High 70-100 [facility] Comment on above: Result Comment: Test performed by glucose meter. Results may be 10%-15% lowerthan serum/plasma values. (CLIA ID [id number]) Performed By: #### B GLU ####[address] [place], [place] Glucose [Mass/Vol] 148 mg/dL High 70-100 [facility] Comment on above: Result Comment: Test performed by glucose meter. Results may be 10%-15% lowerthan serum/plasma values. (CLIA ID [id number]) Performed By: #### B GLU ####[address] [place], [place] Hemogram w/ Autodiffon 06-06 Abs Baso Cnt 0.0 10*3/uL Normal 0.0-0.2 [facility] Comment on above: Performed By: #### M G3, TROPN, BMP3M, ICA, LDH3, HEMDF, CRP2, DDI2, FERR3, LFT3, PHOS3 ####[address] [place], [place] Abs Neutrophile Cnt 2.9 10*3/uL Normal 1.8-7.0 [facility] Comment on above: Performed By: #### M G3, TROPN, BMP3M, ICA, LDH3, HEMDF, CRP2, DDI2, FERR3, LFT3, PHOS3 ####[address] Basophils/100 WBC (Bld) 0.4 % Normal 0.0-2.0 [facility] Comment on above: Performed By: #### M G3, TROPN, BMP3M, ICA, LDH3, HEMDF, CRP2, DDI2, FERR3, LFT3, PHOS3 ####[address] Eosinophils (Bld) [#/Vol] 0.0 10*3/uL Normal 0.0-0.5 [facility] Comment on above: Performed By: #### M G3, TROPN, BMP3M, ICA, LDH3, HEMDF, CRP2, DDI2, FERR3, LFT3, PHOS3 ####[address] Eosinophils/100 WBC (Bld) 0.1 % Low 1.0-6.0 [facility] Comment on above: Performed By: #### M G3, TROPN, BMP3M, ICA, LDH3, HEMDF, CRP2, DDI2, FERR3, LFT3, PHOS3 ####[address] Erythrocyte distribution width (RBC) [Ratio] 20.1 % High 11.5-14.5 [facility] Comment on above: Performed By: #### M G3, TROPN, BMP3M, ICA, LDH3, HEMDF, CRP2, DDI2, FERR3, LFT3, PHOS3 ####[address] Granulocytes/100 WBC (Bld) 78.1 % Normal 40.0-80.0 [facility] Comment on above: Performed By: #### M G3, TROPN, BMP3M, ICA, LDH3, HEMDF, CRP2, DDI2, FERR3, LFT3, PHOS3 ####[address] Hematocrit (Bld) [Volume fraction] 33.8 % Low 35.0-47.0 [facility] Comment on above: Performed By: #### M G3, TROPN, BMP3M, ICA, LDH3, HEMDF, CRP2, DDI2, FERR3, LFT3, PHOS3 ####[address] Hemoglobin (Bld) [Mass/Vol] 10.6 g/dL Low 11.7-16.0 [facility] Comment on above: Performed By: #### M G3, TROPN, BMP3M, ICA, LDH3, HEMDF, CRP2, DDI2, FERR3, LFT3, PHOS3 ####[address] Lymphocytes (Bld) [#/Vol] 0.4 10*3/uL Low 1.0-4.3 [facility] Comment on above: Performed By: #### M G3, TROPN, BMP3M, ICA, LDH3, HEMDF, CRP2, DDI2, FERR3, LFT3, PHOS3 ####[address] Lymphocytes/100 WBC (Bld) 11.1 % Low 20.0-40.0 [facility] Comment on above: Performed By: #### M G3, TROPN, BMP3M, ICA, LDH3, HEMDF, CRP2, DDI2, FERR3, LFT3, PHOS3 ####[address] [place], [place] MCH (RBC) [Entitic mass] 22.3 pg Low 26.0-34.0 [facility] Comment on above: Performed By: #### M G3, TROPN, BMP3M, ICA, LDH3, HEMDF, CRP2, DDI2, FERR3, LFT3, PHOS3 ####[address] MCHC 31.4 % Low 32.0-36.0 [facility] Comment on above: Performed By: #### M G3, TROPN, BMP3M, ICA, LDH3, HEMDF, CRP2, DDI2, FERR3, LFT3, PHOS3 ####[address] MCV (RBC) [Entitic vol] 71.1 fL Low 79.0-98.0 [facility] Comment on above: Performed By: #### M G3, TROPN, BMP3M, ICA, LDH3, HEMDF, CRP2, DDI2, FERR3, LFT3, PHOS3 ####[address] [place], [place] Monocytes (Bld) [#/Vol] 0.4 10*3/uL Normal 0.0-0.8 [facility] Comment on above: Performed By: #### M G3, TROPN, BMP3M, ICA, LDH3, HEMDF, CRP2, DDI2, FERR3, LFT3, PHOS3 ####[address] [place], [place] Monocytes/100 WBC (Bld) 10.3 % High 2.0-10.0 [facility] Comment on above: Performed By: #### M G3, TROPN, BMP3M, ICA, LDH3, HEMDF, CRP2, DDI2, FERR3, LFT3, PHOS3 ####[address] Platelet mean volume (Bld) [Entitic vol] 8.5 fL Normal 7.4-10.4 [facility] Comment on above: Performed By: #### M G3, TROPN, BMP3M, ICA, LDH3, HEMDF, CRP2, DDI2, FERR3, LFT3, PHOS3 ####[address] [place], [place] Platelets (Bld) [#/Vol] 176 10*3/uL Normal 140-440 [facility] Comment on above: Performed By: #### M G3, TROPN, BMP3M, ICA, LDH3, HEMDF, CRP2, DDI2, FERR3, LFT3, PHOS3 ####[address] [place], [place] RBC (Bld) [#/Vol] 4.75 10*6/uL Normal 3.80-5.20 [facility] Comment on above: Performed By: #### M G3, TROPN, BMP3M, ICA, LDH3, HEMDF, CRP2, DDI2, FERR3, LFT3, PHOS3 ####[address] [place], [place] WBC (Bld) [#/Vol] 3.7 10*3/uL Normal 3.6-10.7 [facility] Comment on above: Performed By: #### M G3, TROPN, BMP3M, ICA, LDH3, HEMDF, CRP2, DDI2, FERR3, LFT3, PHOS3 ####[address] [place], [place] Hep B Core Ab,Totalon 2020 Hep B Core Ab,Total Negative Normal Negative [facility] Comment on above: Result Comment: INTE RPRETIVE INFORMATION: Hepatitis B Core Ab (Total)This assay should not be used for blood donor screening,associated re-entry protocols, or for screening Human Cells,Tissues and Cellular and Tissue-Based Products (HCT/P).Performed by [facility],[address] [place] [id number] [employer].Rad, Merari Garcia MD - Lab. Director Performed By: #### H BSAG, LFT3, HEMDF, HIV4, TROPN, MG3, BMP3M, DDI2, PHOS3, CRP2, HEPC, ICA, FERR3, LDH3 ####[address] [place], [place] #### IL6O, HBCAO ####The performing lab is in the report. Hepatic Functionon ALT [Catalytic activity/Vol] 70 U/L High 0-34 [facility] Comment on above: Result Comment: The ALT test is performed by an updated assay method.Please note that the reference intervals have beenchanged and are now sex specific. Performed By: #### M G3, TROPN, BMP3M, ICA, LDH3, HEMDF, CRP2, DDI2, FERR3, LFT3, PHOS3 ####[address] [place], [place] ALP [Catalytic activity/Vol] 78 U/L Normal 38-126 [facility] Comment on above: Performed By: #### M G3, TROPN, BMP3M, ICA, LDH3, HEMDF, CRP2, DDI2, FERR3, LFT3, PHOS3 ####[address] AST [Catalytic activity/Vol] 87 U/L High 15-46 [facility] Comment on above: Performed By: #### M G3, TROPN, BMP3M, ICA, LDH3, HEMDF, CRP2, DDI2, FERR3, LFT3, PHOS3 ####[address] Bilirubin [Mass/Vol] 0.3 mg/dL Normal 0.2-1.3 [facility] Comment on above: Performed By: #### M G3, TROPN, BMP3M, ICA, LDH3, HEMDF, CRP2, DDI2, FERR3, LFT3, PHOS3 ####[address] Bilirubin.indirect [Mass/Vol] 0.0 mg/dL Normal 0.0-0.3 [facility] Comment on above: Performed By: #### M G3, TROPN, BMP3M, ICA, LDH3, HEMDF, CRP2, DDI2, FERR3, LFT3, PHOS3 ####[address] Protein [Mass/Vol] 6.1 g/dL Low 6.3-8.2 [facility] Comment on above: Performed By: #### M G3, TROPN, BMP3M, ICA, LDH3, HEMDF, CRP2, DDI2, FERR3, LFT3, PHOS3 ####[address] Albumin [Mass/Vol] 2.9 g/dL Low 3.5-5.0 [facility] Comment on above: Performed By: #### M G3, TROPN, BMP3M, ICA, LDH3, HEMDF, CRP2, DDI2, FERR3, LFT3, PHOS3 ####[address] [place] [address] LDHon 06-06-2021 LDH 408 U/L High 120-246 [facility] Comment on above: Performed By: #### M G3, TROPN, BMP3M, ICA, LDH3, HEMDF, CRP2, DDI2, FERR3, LFT3, PHOS3 ####[address] [address] Magnesiumon 06-06-2021 Magnesium [Mass/Vol] 2.5 mg/dL High 1.6-2.3 [facility] Comment on above: Performed By: #### M G3, TROPN, BMP3M, ICA, LDH3, HEMDF, CRP2, DDI2, FERR3, LFT3, PHOS3 ####[address] Phosphoruson 06-06-2021 Phosphate [Mass/Vol] 4.4 mg/dL Normal 2.5-4.5 [facility] Comment on above: Performed By: #### M G3, TROPN, BMP3M, ICA, LDH3, HEMDF, CRP2, DDI2, FERR3, LFT3, PHOS3 ####[address] Troponin Ion 06-06-2021 Troponin I.cardiac [Mass/Vol] ng/mL Normal 0.000-0.034 [facility] Comment on above: Result Comment: . Performed By: #### M G3, TROPN, BMP3M, ICA, LDH3, HEMDF, CRP2, DDI2, FERR3, LFT3, PHOS3 ####[address] [place] [address] Arterial Blood Gaseson 06-05 CO2 [Moles/Vol] 30.7 mmol/L High 23.0-27.0 [facility] Comment on above: Performed By: #### A BG ####[address] HCO3 (Bld) [Moles/Vol] 29.2 mmol/L High 21.0-25.0 [facility] Comment on above: Performed By: #### A BG ####[address] [place], [place] Hemoglobin (Bld) [Mass/Vol] 11.2 g/dL Normal ScreenOnly [facility] Comment on above: Performed By: #### A BG ####[address] [place], [place] Oxygen (Bld) [Partial pressure] 97.0 mm[Hg] Normal 80.0-100.0 [facility] Comment on above: Performed By: #### A BG ####[address] [place], [place] Oxygen saturation in Blood 96.4 % Normal 95.0-100.0 [facility] Comment on above: Performed By: #### A BG ####[address] pCO2 51.0 mm[Hg] High 35.0-45.0 [facility] Comment on above: Performed By: #### A BG ####[address] pH 7.375 Normal 7.350-7.450 [facility] Comment on above: Performed By: #### A BG ####[address] Std Base Excess 3.2 mmol/L High -3.0-3.0 [facility] Comment on above: Performed By: #### A BG ####[address] [place], [place] FIO2 60% Normal [facility] Comment on above: Performed By: #### A BG ####[address] [place], [place] CO2 [Moles/Vol] 29.6 mmol/L High 23.0-27.0 [facility] Comment on above: Performed By: #### A BG ####[address] [place], [place] HCO3 (Bld) [Moles/Vol] 28.1 mmol/L High 21.0-25.0 [facility] Comment on above: Performed By: #### A BG ####[address] [place], [place] Hemoglobin (Bld) [Mass/Vol] 11.3 g/dL Normal ScreenOnly [facility] Comment on above: Performed By: #### A BG ####[address] [place], [place] Oxygen (Bld) [Partial pressure] 91.1 mm[Hg] Normal 80.0-100.0 [facility] Comment on above: Performed By: #### A BG ####[address] Oxygen saturation in Blood 96.0 % Normal 95.0-100.0 [facility] Comment on above: Performed By: #### A BG ####[address] pCO2 50.2 mm[Hg] High 35.0-45.0 [facility] Comment on above: Performed By: #### A BG ####[address] pH 7.366 Normal 7.350-7.450 [facility] Comment on above: Performed By: #### A BG ####[address] Std Base Excess 2.1 mmol/L Normal -3.0-3.0 [facility] Comment on above: Performed By: #### A BG ####[address] FIO2 60% Normal [facility] Comment on above: Performed By: #### A BG ####[address] CO2 [Moles/Vol] 28.7 mmol/L High 23.0-27.0 [facility] Comment on above: Performed By: #### A BG ####[address] [place], [place] HCO3 (Bld) [Moles/Vol] 27.1 mmol/L High 21.0-25.0 [facility] Comment on above: Performed By: #### A BG ####[address] [place], [place] Hemoglobin (Bld) [Mass/Vol] 11.6 g/dL Normal ScreenOnly [facility] Comment on above: Performed By: #### A BG ####[address] [place], [place] Oxygen (Bld) [Partial pressure] 84.2 mm[Hg] Normal 80.0-100.0 [facility] Comment on above: Performed By: #### A BG ####[address] Oxygen saturation in Blood 95.7 % Normal 95.0-100.0 [facility] Comment on above: Performed By: #### A BG ####[address] [place] pCO2 50.8 mm[Hg] High 35.0-45.0 [facility] Comment on above: Performed By: #### A BG ####[address] pH 7.345 Low 7.350-7.450 [facility] Comment on above: Performed By: #### A BG ####[address] [place], [place] Std Base Excess 0.8 mmol/L Normal -3.0-3.0 [facility] Comment on above: Performed By: #### A BG ####[address] FIO2 60% Normal [facility] Comment on above: Performed By: #### A BG ####[address] CO2 [Moles/Vol] 28.9 mmol/L High 23.0-27.0 [facility] Comment on above: Performed By: #### A BG ####[address] [place], [place] HCO3 (Bld) [Moles/Vol] 27.4 mmol/L High 21.0-25.0 [facility] Comment on above: Performed By: #### A BG ####[address] [place], [place] Hemoglobin (Bld) [Mass/Vol] 11.6 g/dL Normal ScreenOnly [facility] Comment on above: Performed By: #### A BG ####[address] [place], [place] Oxygen (Bld) [Partial pressure] 83.5 mm[Hg] Normal 80.0-100.0 [facility] Comment on above: Performed By: #### A BG ####[address] Oxygen saturation in Blood 95.0 % Normal 95.0-100.0 [facility] Comment on above: Performed By: #### A BG ####[address] [place] pCO2 48.5 mm[Hg] High 35.0-45.0 [facility] Comment on above: Performed By: #### A BG ####[address] [place], [place] pH 7.370 Normal 7.350-7.450 [facility] Comment on above: Performed By: #### A BG ####[address] Std Base Excess 1.6 mmol/L Normal -3.0-3.0 [facility] Comment on above: Performed By: #### A BG ####[address] [place], [place] FIO2 60% Normal [facility] Comment on above: Performed By: #### A BG ####[address] [place], [place] Basic Metabolic Panelon 07-0 Calcium [Mass/Vol] 8.5 mg/dL Normal 8.4-10.4 [facility] Comment on above: Performed By: #### H BSAG, LFT3, HEMDF, HIV4, TROPN, MG3, BMP3M, DDI2, PHOS3, CRP2, HEPC, ICA, FERR3, LDH3 ####[address] #### IL6O, HBCAO ####The performing lab is in the report. Anion gap [Moles/Vol] 6 mmol/L Normal 3-13 [facility] Comment on above: Performed By: #### H BSAG, LFT3, HEMDF, HIV4, TROPN, MG3, BMP3M, DDI2, PHOS3, CRP2, HEPC, ICA, FERR3, LDH3 ####[address] #### IL6O, HBCAO ####The performing lab is in the report. CO2 [Moles/Vol] 25 mmol/L Normal 22-30 [facility] Comment on above: Performed By: #### H BSAG, LFT3, HEMDF, HIV4, TROPN, MG3, BMP3M, DDI2, PHOS3, CRP2, HEPC, ICA, FERR3, LDH3 ####[address] #### IL6O, HBCAO ####The performing lab is in the report. Glucose [Mass/Vol] 203 mg/dL High 70-100 [facility] Comment on above: Performed By: #### H BSAG, LFT3, HEMDF, HIV4, TROPN, MG3, BMP3M, DDI2, PHOS3, CRP2, HEPC, ICA, FERR3, LDH3 ####[address] #### IL6O, HBCAO ####The performing lab is in the report. Urea nitrogen [Mass/Vol] 27 mg/dL High 7-20 [facility] Comment on above: Performed By: #### H BSAG, LFT3, HEMDF, HIV4, TROPN, MG3, BMP3M, DDI2, PHOS3, CRP2, HEPC, ICA, FERR3, LDH3 ####[address] [address]#### IL6O, HBCAO ####The performing lab is in the report. Creatinine [Mass/Vol] 0.96 mg/dL Normal 0.52-1.25 [facility] Comment on above: Performed By: #### H BSAG, LFT3, HEMDF, HIV4, TROPN, MG3, BMP3M, DDI2, PHOS3, CRP2, HEPC, ICA, FERR3, LDH3 ####[address] [address]#### IL6O, HBCAO ####The performing lab is in the report. GFR/1.73 sq M.predicted among blacks MDRD (S/P/Bld) [Vol rate/Area] 78.1 mL/min/{1.73_m2} Normal >60 [facility] Comment on above: Performed By: #### H BSAG, LFT3, HEMDF, HIV4, TROPN, MG3, BMP3M, DDI2, PHOS3, CRP2, HEPC, ICA, FERR3, LDH3 ####[address] [address]#### IL6O, HBCAO ####The performing lab is in the report. GFR/1.73 sq M.predicted among non-blacks MDRD (S/P/Bld) [Vol rate/Area] 67.4 mL/min/{1.73_m2} Normal >60 [facility] Comment on above: Result Comment: KDIG O guidelines provide the following GFR categories:Stage GFR(ml/min/1.73 m2) TermsG1 >=90 Normal or highG2 60-89 Mildly decreased*G3a 45-59 Mildly to moderately [id number] 30-44 Moderately to severely decreasedG4 15-29 Severely [...] DDI2, PHOS3, CRP2, HEPC, ICA, FERR3, LDH3 ####[address] [address]#### IL6O, HBCAO ####The performing lab is in the report. Potassium [Moles/Vol] 4.2 mmol/L Normal 3.5-5.1 [facility] Comment on above: Performed By: #### H BSAG, LFT3, HEMDF, HIV4, TROPN, MG3, BMP3M, DDI2, PHOS3, CRP2, HEPC, ICA, FERR3, LDH3 ####[address] [address]#### IL6O, HBCAO ####The performing lab is in the report. Sodium [Moles/Vol] 137 mmol/L Normal 135-145 [facility] Comment on above: Performed By: #### H BSAG, LFT3, HEMDF, HIV4, TROPN, MG3, BMP3M, DDI2, PHOS3, CRP2, HEPC, ICA, FERR3, LDH3 ####[address] [address]#### IL6O, HBCAO ####The performing lab is in the report. Chloride [Moles/Vol] 106 mmol/L Normal 98-107 [facility] Comment on above: Performed By: #### H BSAG, LFT3, HEMDF, HIV4, TROPN, MG3, BMP3M, DDI2, PHOS3, CRP2, HEPC, ICA, FERR3, LDH3 ####[address] #### IL6O, HBCAO ####The performing lab is in the report. C-Reactive Proteinon 021 CRP [Mass/Vol] 89.2 mg/L High 0.0-6.0 [facility] Comment on above: Result Comment: . Performed By: #### H BSAG, LFT3, HEMDF, HIV4, TROPN, MG3, BMP3M, DDI2, PHOS3, CRP2, HEPC, ICA, FERR3, LDH3 ####[address] #### IL6O, HBCAO ####The performing lab is in the report. CR Chest Portableon 06-05-20 CR Chest Portable Normal [facility] Calcium,Ionizedon 06-05-2021 Ionized Ca,Measured 4.60 mg/dL Normal 4.30-5.20 [facility] Comment on above: Performed By: #### H BSAG, LFT3, HEMDF, HIV4, TROPN, MG3, BMP3M, DDI2, PHOS3, CRP2, HEPC, ICA, FERR3, LDH3 ####[address] #### IL6O, HBCAO ####The performing lab is in the report. pH, Ionized Calcium 7.35 Normal 7.31-7.46 [facility] Comment on above: Performed By: #### H BSAG, LFT3, HEMDF, HIV4, TROPN, MG3, BMP3M, DDI2, PHOS3, CRP2, HEPC, ICA, FERR3, LDH3 ####[address] #### IL6O, HBCAO ####The performing lab is in the report. D-Dimer, Innovanceon 021 D-Dimer, Innovance 4.34 mg/L High <0.19-0.50 [facility] Comment on above: Result Comment: Inno carrington D-Dimer values of <0.50 mg/L FEU can be used incombination with a pre-test probability model (e.g. Well's)to exclude pulmonary embolism (PE) disease, as well as jodi in the diagnosis of deep vein thrombosis (DVT). Performed By: #### H BSAG, LFT3, HEMDF, HIV4, TROPN, MG3, BMP3M, DDI2, PHOS3, CRP2, HEPC, ICA, FERR3, LDH3 ####[address] [place], [place] #### IL6O, HBCAO ####The performing lab is in the report. Ferritinon 06-05-2021 Ferritin [Mass/Vol] 189 ng/mL Normal 8-252 [facility] Comment on above: Performed By: #### H BSAG, LFT3, HEMDF, HIV4, TROPN, MG3, BMP3M, DDI2, PHOS3, CRP2, HEPC, ICA, FERR3, LDH3 ####[facility] [employer] [id number] [place], [place] #### IL6O, HBCAO ####The performing lab is in the report. Glucose,Bedsideon 06-05-2021 Glucose [Mass/Vol] 191 mg/dL High 70-100 [facility] Comment on above: Result Comment: Test performed by glucose meter. Results may be 10%-15% lowerthan serum/plasma values. (CLIA ID [id number]) Performed By: #### B GLU ####[facility] [employer] [address] Glucose [Mass/Vol] 193 mg/dL High 70-100 [facility] Comment on above: Result Comment: Test performed by glucose meter. Results may be 10%-15% lowerthan serum/plasma values. (CLIA ID [id number]) Performed By: #### B GLU ####[address] [place], [place] Glucose [Mass/Vol] 163 mg/dL High 70-100 [facility] Comment on above: Result Comment: Test performed by glucose meter. Results may be 10%-15% lowerthan serum/plasma values. (CLIA ID [id number]) Performed By: #### B GLU ####[address] [place], [place] Glucose [Mass/Vol] 179 mg/dL High 70-100 [facility] Comment on above: Result Comment: Test performed by glucose meter. Results may be 10%-15% lowerthan serum/plasma values. (CLIA ID [id number]) Performed By: #### B GLU ####[address] [place], [place] Glucose [Mass/Vol] 220 mg/dL High 70-100 [facility] Comment on above: Result Comment: Test performed by glucose meter. Results may be 10%-15% lowerthan serum/plasma values. (CLIA ID [id number]) Performed By: #### B GLU ####[address] HIV 1,2 Ab; p24 Agon 021 HIV 1,2 Ab; p24 Ag Non-Reactive Normal Nonreactive [facility] Comment on above: Result Comment: The specimen was non-reactive for HIV-1 and HIV-2antibodies and p24 antigen using an FDA-cleared 4thgeneration HIV test. Based on this non-reactive screenresult, further reflexive testing was not indicated andwas, therefore, not performed. Performed By: #### H BSAG, LFT3, HEMDF, HIV4, TROPN, MG3, BMP3M, DDI2, PHOS3, CRP2, HEPC, ICA, FERR3, LDH3 ####[address] [place], [place] #### IL6O, HBCAO ####The performing lab is in the report. Hemogram w/ Autodiffon 06-05 Abs Baso Cnt 0.0 10*3/uL Normal 0.0-0.2 [facility] Comment on above: Performed By: #### H BSAG, LFT3, HEMDF, HIV4, TROPN, MG3, BMP3M, DDI2, PHOS3, CRP2, HEPC, ICA, FERR3, LDH3 ####[address] [address]#### IL6O, HBCAO ####The performing lab is in the report. Abs Neutrophile Cnt 1.8 10*3/uL Normal 1.8-7.0 [facility] Comment on above: Performed By: #### H BSAG, LFT3, HEMDF, HIV4, TROPN, MG3, BMP3M, DDI2, PHOS3, CRP2, HEPC, ICA, FERR3, LDH3 ####[address] [address]#### IL6O, HBCAO ####The performing lab is in the report. Basophils/100 WBC (Bld) 0.0 % Normal 0.0-2.0 [facility] Comment on above: Performed By: #### H BSAG, LFT3, HEMDF, HIV4, TROPN, MG3, BMP3M, DDI2, PHOS3, CRP2, HEPC, ICA, FERR3, LDH3 ####[address] [id number]#### IL6O, HBCAO ####The performing lab is in the report. Eosinophils (Bld) [#/Vol] 0.0 10*3/uL Normal 0.0-0.5 [facility] Comment on above: Performed By: #### H BSAG, LFT3, HEMDF, HIV4, TROPN, MG3, BMP3M, DDI2, PHOS3, CRP2, HEPC, ICA, FERR3, LDH3 ####[address] [id number]#### IL6O, HBCAO ####The performing lab is in the report. Eosinophils/100 WBC (Bld) 0.0 % Low 1.0-6.0 [facility] Comment on above: Performed By: #### H BSAG, LFT3, HEMDF, HIV4, TROPN, MG3, BMP3M, DDI2, PHOS3, CRP2, HEPC, ICA, FERR3, LDH3 ####[address] #### IL6O, HBCAO ####The performing lab is in the report. Erythrocyte distribution width (RBC) [Ratio] 20.3 % High 11.5-14.5 [facility] Comment on above: Performed By: #### H BSAG, LFT3, HEMDF, HIV4, TROPN, MG3, BMP3M, DDI2, PHOS3, CRP2, HEPC, ICA, FERR3, LDH3 ####[address] #### IL6O, HBCAO ####The performing lab is in the report. Granulocytes/100 WBC (Bld) 76.6 % Normal 40.0-80.0 [facility] Comment on above: Performed By: #### H BSAG, LFT3, HEMDF, HIV4, TROPN, MG3, BMP3M, DDI2, PHOS3, CRP2, HEPC, ICA, FERR3, LDH3 ####[address] #### IL6O, HBCAO ####The performing lab is in the report. Hematocrit (Bld) [Volume fraction] 34.4 % Low 35.0-47.0 [facility] Comment on above: Performed By: #### H BSAG, LFT3, HEMDF, HIV4, TROPN, MG3, BMP3M, DDI2, PHOS3, CRP2, HEPC, ICA, FERR3, LDH3 ####[address] #### IL6O, HBCAO ####The performing lab is in the report. Hemoglobin (Bld) [Mass/Vol] 10.7 g/dL Low 11.7-16.0 [facility] Comment on above: Performed By: #### H BSAG, LFT3, HEMDF, HIV4, TROPN, MG3, BMP3M, DDI2, PHOS3, CRP2, HEPC, ICA, FERR3, LDH3 ####[address] #### IL6O, HBCAO ####The performing lab is in the report. Lymphocytes (Bld) [#/Vol] 0.2 10*3/uL Low 1.0-4.3 [facility] Comment on above: Performed By: #### H BSAG, LFT3, HEMDF, HIV4, TROPN, MG3, BMP3M, DDI2, PHOS3, CRP2, HEPC, ICA, FERR3, LDH3 ####[address] #### IL6O, HBCAO ####The performing lab is in the report. Lymphocytes/100 WBC (Bld) 10.3 % Low 20.0-40.0 [facility] Comment on above: Performed By: #### H BSAG, LFT3, HEMDF, HIV4, TROPN, MG3, BMP3M, DDI2, PHOS3, CRP2, HEPC, ICA, FERR3, LDH3 ####[address] [address] #### IL6O, HBCAO ####The performing lab is in the report. MCH (RBC) [Entitic mass] 22.3 pg Low 26.0-34.0 [facility] Comment on above: Performed By: #### H BSAG, LFT3, HEMDF, HIV4, TROPN, MG3, BMP3M, DDI2, PHOS3, CRP2, HEPC, ICA, FERR3, LDH3 ####[address] #### IL6O, HBCAO ####The performing lab is in the report. MCHC 31.3 % Low 32.0-36.0 [facility] Comment on above: Performed By: #### H BSAG, LFT3, HEMDF, HIV4, TROPN, MG3, BMP3M, DDI2, PHOS3, CRP2, HEPC, ICA, FERR3, LDH3 ####[address] #### IL6O, HBCAO ####The performing lab is in the report. MCV (RBC) [Entitic vol] 71.2 fL Low 79.0-98.0 [facility] Comment on above: Performed By: #### H BSAG, LFT3, HEMDF, HIV4, TROPN, MG3, BMP3M, DDI2, PHOS3, CRP2, HEPC, ICA, FERR3, LDH3 ####[address] #### IL6O, HBCAO ####The performing lab is in the report. Monocytes (Bld) [#/Vol] 0.3 10*3/uL Normal 0.0-0.8 [facility] Comment on above: Performed By: #### H BSAG, LFT3, HEMDF, HIV4, TROPN, MG3, BMP3M, DDI2, PHOS3, CRP2, HEPC, ICA, FERR3, LDH3 ####[address] #### IL6O, HBCAO ####The performing lab is in the report. Monocytes/100 WBC (Bld) 13.1 % High 2.0-10.0 [facility] Comment on above: Performed By: #### H BSAG, LFT3, HEMDF, HIV4, TROPN, MG3, BMP3M, DDI2, PHOS3, CRP2, HEPC, ICA, FERR3, LDH3 ####[address] #### IL6O, HBCAO ####The performing lab is in the report. Platelet mean volume (Bld) [Entitic vol] 8.5 fL Normal 7.4-10.4 [facility] Comment on above: Performed By: #### H BSAG, LFT3, HEMDF, HIV4, TROPN, MG3, BMP3M, DDI2, PHOS3, CRP2, HEPC, ICA, FERR3, LDH3 ####[address] #### IL6O, HBCAO ####The performing lab is in the report. Platelets (Bld) [#/Vol] 163 10*3/uL Normal 140-440 [facility] Comment on above: Performed By: #### H BSAG, LFT3, HEMDF, HIV4, TROPN, MG3, BMP3M, DDI2, PHOS3, CRP2, HEPC, ICA, FERR3, LDH3 ####[address] [address]#### IL6O, HBCAO ####The performing lab is in the report. RBC (Bld) [#/Vol] 4.83 10*6/uL Normal 3.80-5.20 [facility] Comment on above: Performed By: #### H BSAG, LFT3, HEMDF, HIV4, TROPN, MG3, BMP3M, DDI2, PHOS3, CRP2, HEPC, ICA, FERR3, LDH3 ####[address] [address]#### IL6O, HBCAO ####The performing lab is in the report. WBC (Bld) [#/Vol] 2.3 10*3/uL Low 3.6-10.7 [facility] Comment on above: Performed By: #### H BSAG, LFT3, HEMDF, HIV4, TROPN, MG3, BMP3M, DDI2, PHOS3, CRP2, HEPC, ICA, FERR3, LDH3 ####[address] [address]#### IL6O, HBCAO ####The performing lab is in the report. Hep B Surface Abon 1 Hep B Surface Ab < 8.0 Normal [facility] Comment on above: Result Comment: Inte rpretation:<8.0 Non-Reactive8.0-11.9 Equivocal>= 12.0 Ab DetectedNote: If an equivocal result is interpreted, an antibodystatus is unable to be determined. Collect new specimenif clinically indicated. Performed By: #### H BSA ####[address] [address] Hep B Surface Agon 1 Hep B Surface Ag Not detected Normal Not Detected [facility] Comment on above: Performed By: #### H BSAG, LFT3, HEMDF, HIV4, TROPN, MG3, BMP3M, DDI2, PHOS3, CRP2, HEPC, ICA, FERR3, LDH3 ####[address] [address]#### IL6O, HBCAO ####The performing lab is in the report. Hep C Antibodyon 06-05-2021 Hep C Antibody Not detected Normal Not Detected [facility] Comment on above: Result Comment: Dalila ents with DETECTED Hepatitis C Ab results should have a new specimensubmitted for supplemental testing with a Hepatitis C Quantitative RNA assay(viral load), if clinically indicated. Performed By: #### H BSAG, LFT3, HEMDF, HIV4, TROPN, MG3, BMP3M, DDI2, PHOS3, CRP2, HEPC, ICA, FERR3, LDH3 ####[address] [address]#### IL6O, HBCAO ####The performing lab is in the report. Hepatic Functionon ALT [Catalytic activity/Vol] 42 U/L High 0-34 [facility] Comment on above: Result Comment: The ALT test is performed by an updated assay method.Please note that the reference intervals have beenchanged and are now sex specific. Performed By: #### H BSAG, LFT3, HEMDF, HIV4, TROPN, MG3, BMP3M, DDI2, PHOS3, CRP2, HEPC, ICA, FERR3, LDH3 ####[address] [address]#### IL6O, HBCAO ####The performing lab is in the report. ALP [Catalytic activity/Vol] 82 U/L Normal 38-126 [facility] Comment on above: Performed By: #### H BSAG, LFT3, HEMDF, HIV4, TROPN, MG3, BMP3M, DDI2, PHOS3, CRP2, HEPC, ICA, FERR3, LDH3 ####[place] [id number]#### IL6O, HBCAO ####The performing lab is in the report. AST [Catalytic activity/Vol] 49 U/L High 15-46 [facility] Comment on above: Performed By: #### H BSAG, LFT3, HEMDF, HIV4, TROPN, MG3, BMP3M, DDI2, PHOS3, CRP2, HEPC, ICA, FERR3, LDH3 ####[address] #### IL6O, HBCAO ####The performing lab is in the report. Bilirubin [Mass/Vol] 0.3 mg/dL Normal 0.2-1.3 [facility] Comment on above: Performed By: #### H BSAG, LFT3, HEMDF, HIV4, TROPN, MG3, BMP3M, DDI2, PHOS3, CRP2, HEPC, ICA, FERR3, LDH3 ####[address] #### IL6O, HBCAO ####The performing lab is in the report. Bilirubin.indirect [Mass/Vol] 0.0 mg/dL Normal 0.0-0.3 [facility] Comment on above: Performed By: #### H BSAG, LFT3, HEMDF, HIV4, TROPN, MG3, BMP3M, DDI2, PHOS3, CRP2, HEPC, ICA, FERR3, LDH3 ####[address] #### IL6O, HBCAO ####The performing lab is in the report. Protein [Mass/Vol] 6.3 g/dL Normal 6.3-8.2 [facility] Comment on above: Performed By: #### H BSAG, LFT3, HEMDF, HIV4, TROPN, MG3, BMP3M, DDI2, PHOS3, CRP2, HEPC, ICA, FERR3, LDH3 ####[id number] [place], [place] #### IL6O, HBCAO ####The performing lab is in the report. Albumin [Mass/Vol] 3.0 g/dL Low 3.5-5.0 [facility] Comment on above: Performed By: #### H BSAG, LFT3, HEMDF, HIV4, TROPN, MG3, BMP3M, DDI2, PHOS3, CRP2, HEPC, ICA, FERR3, LDH3 ####[address] [address]#### IL6O, HBCAO ####The performing lab is in the report. LDHon 06-05-2021 LDH 383 U/L High 120-246 [facility] Comment on above: Performed By: #### H BSAG, LFT3, HEMDF, HIV4, TROPN, MG3, BMP3M, DDI2, PHOS3, CRP2, HEPC, ICA, FERR3, LDH3 ####[address] [address]#### IL6O, HBCAO ####The performing lab is in the report. Magnesiumon 06-05-2021 Magnesium [Mass/Vol] 2.4 mg/dL High 1.6-2.3 [facility] Comment on above: Performed By: #### H BSAG, LFT3, HEMDF, HIV4, TROPN, MG3, BMP3M, DDI2, PHOS3, CRP2, HEPC, ICA, FERR3, LDH3 ####[address] [address]#### IL6O, HBCAO ####The performing lab is in the report. Phosphoruson 06-05-2021 Phosphate [Mass/Vol] 4.4 mg/dL Normal 2.5-4.5 [facility] Comment on above: Performed By: #### H BSAG, LFT3, HEMDF, HIV4, TROPN, MG3, BMP3M, DDI2, PHOS3, CRP2, HEPC, ICA, FERR3, LDH3 ####[address] [address]#### IL6O, HBCAO ####The performing lab is in the report. Procalcitoninon 06-05-2021 Procalcitonin 0.07 ng/mL Normal 0.00-0.09 [facility] Comment on above: Performed By: #### P OLESYA ####[address] Interpretation See Below Normal [facility] Comment on above: Result Comment: PCT <0.50 = Low risk of severe sepsis and/or septic shock.PCT >2.00 = High risk of severe sepsis and/or septic shock. Performed By: #### P OLESYA ####[address] Quantiferonon 06-05-2021 Quantiferon Negative Normal Negative [facility] Comment on above: Performed By: #### C ORTL, QTF, DDI2, PT, CK3, ICA, FEIBC, LIPD2, TROPN, LACT3, MG3, FERR3, HA1C2, APTT, BNP3, PHOS3, PCAL, HEMDF, CRP2, LDH3, BMP3M, TSH5 ####[address] #### TRFN, [id number] ####[facility] [place] [address] Troponin Ion 06-05-2021 Troponin I.cardiac [Mass/Vol] ng/mL Normal 0.000-0.034 [facility] Comment on above: Result Comment: . Performed By: #### H BSAG, LFT3, HEMDF, HIV4, TROPN, MG3, BMP3M, DDI2, PHOS3, CRP2, HEPC, ICA, FERR3, LDH3 ####[address] #### IL6O, HBCAO ####The performing lab is in the report. Arterial Blood Gaseson 06-04 CO2 [Moles/Vol] 27.9 mmol/L High 23.0-27.0 [facility] Comment on above: Performed By: #### A BG ####[address] HCO3 (Bld) [Moles/Vol] 26.5 mmol/L High 21.0-25.0 [facility] Comment on above: Performed By: #### A BG ####[place] [id number] [place], [place] Hemoglobin (Bld) [Mass/Vol] 12.1 g/dL Normal ScreenOnly [facility] Comment on above: Performed By: #### A BG ####[address] [address] [place], [place] Oxygen (Bld) [Partial pressure] 142.9 mm[Hg] High 80.0-100.0 [facility] Comment on above: Performed By: #### A BG ####[address] Oxygen saturation in Blood 98.5 % Normal 95.0-100.0 [facility] Comment on above: Performed By: #### A BG ####[address] pCO2 47.7 mm[Hg] High 35.0-45.0 [facility] Comment on above: Performed By: #### A BG ####[address] pH 7.362 Normal 7.350-7.450 [facility] Comment on above: Performed By: #### A BG ####[address] Std Base Excess 0.6 mmol/L Normal -3.0-3.0 [facility] Comment on above: Performed By: #### A BG ####[address] FIO2 90% Normal [facility] Comment on above: Performed By: #### A BG ####[address] CO2 [Moles/Vol] 26.8 mmol/L Normal 23.0-27.0 [facility] Comment on above: Performed By: #### A BG ####[address] [id number] [place], [place] HCO3 (Bld) [Moles/Vol] 25.3 mmol/L High 21.0-25.0 [facility] Comment on above: Performed By: #### A BG ####[place] [address] [place], [place] Hemoglobin (Bld) [Mass/Vol] 12.1 g/dL Normal ScreenOnly [facility] Comment on above: Performed By: #### A BG ####[address] Oxygen (Bld) [Partial pressure] 171.0 mm[Hg] High 80.0-100.0 [facility] Comment on above: Performed By: #### A BG ####[address] Oxygen saturation in Blood 98.9 % Normal 95.0-100.0 [facility] Comment on above: Performed By: #### A BG ####[address] pCO2 50.5 mm[Hg] High 35.0-45.0 [facility] Comment on above: Performed By: #### A BG ####[address] pH 7.317 Low 7.350-7.450 [facility] Comment on above: Performed By: #### A BG ####[address] Std Base Excess -1.3 mmol/L Normal -3.0-3.0 [facility] Comment on above: Performed By: #### A BG ####[address] FIO2 100% Normal [facility] Comment on above: Performed By: #### A BG ####[address] CO2 [Moles/Vol] 29.7 mmol/L High 23.0-27.0 [facility] Comment on above: Performed By: #### A BG ####[id number] [place], [place] HCO3 (Bld) [Moles/Vol] 28.2 mmol/L High 21.0-25.0 [facility] Comment on above: Performed By: #### A BG ####[id number] [place], [place] Hemoglobin (Bld) [Mass/Vol] 12.3 g/dL Normal ScreenOnly [facility] Comment on above: Performed By: #### A BG ####[address] [id number] [place], [place] Oxygen (Bld) [Partial pressure] 92.9 mm[Hg] Normal 80.0-100.0 [facility] Comment on above: Performed By: #### A BG ####[address] Oxygen saturation in Blood 96.0 % Normal 95.0-100.0 [facility] Comment on above: Performed By: #### A BG ####[id number] [place], [place] pCO2 50.3 mm[Hg] High 35.0-45.0 [facility] Comment on above: Performed By: #### A BG ####[address] [place], [place] pH 7.366 Normal 7.350-7.450 [facility] Comment on above: Performed By: #### A BG ####[address] Std Base Excess 2.1 mmol/L Normal -3.0-3.0 [facility] Comment on above: Performed By: #### A BG ####[address] FIO2 100% Normal [facility] Comment on above: Performed By: #### A BG ####[address] CO2 [Moles/Vol] 29.3 mmol/L High 23.0-27.0 [facility] Comment on above: Performed By: #### A BG ####[address] HCO3 (Bld) [Moles/Vol] 27.9 mmol/L High 21.0-25.0 [facility] Comment on above: Performed By: #### A BG ####[address] Hemoglobin (Bld) [Mass/Vol] 12.8 g/dL Normal ScreenOnly [facility] Comment on above: Performed By: #### A BG ####[address] Oxygen (Bld) [Partial pressure] 70.0 mm[Hg] Low 80.0-100.0 [facility] Comment on above: Performed By: #### A BG ####[address] Oxygen saturation in Blood 92.2 % Low 95.0-100.0 [facility] Comment on above: Performed By: #### A BG ####[address] pCO2 44.5 mm[Hg] Normal 35.0-45.0 [facility] Comment on above: Performed By: #### A BG ####[address] pH 7.415 Normal 7.350-7.450 [facility] Comment on above: Performed By: #### A BG ####[address] Std Base Excess 2.9 mmol/L Normal -3.0-3.0 [facility] Comment on above: Performed By: #### A BG ####[address] FIO2 100% Normal [facility] Comment on above: Performed By: #### A BG ####[address] [id number] [place], [place] Basic Metabolic Panelon 07-0 -2020 Calcium [Mass/Vol] 8.6 mg/dL Normal 8.4-10.4 [facility] Comment on above: Performed By: #### I CA, DDI2, MG3, PHOS3, FERR3, CRP2, HEMDF, LDH3, LFT3, BMP3M ####[id number] [place], [place] Glucose [Mass/Vol] 174 mg/dL High 70-100 [facility] Comment on above: Performed By: #### I CA, DDI2, MG3, PHOS3, FERR3, CRP2, HEMDF, LDH3, LFT3, BMP3M ####[address] [place], [place] Anion gap [Moles/Vol] 7 mmol/L Normal 3-13 [facility] Comment on above: Performed By: #### I CA, DDI2, MG3, PHOS3, FERR3, CRP2, HEMDF, LDH3, LFT3, BMP3M ####[address] [place] [place], [place] CO2 [Moles/Vol] 27 mmol/L Normal 22-30 [facility] Comment on above: Performed By: #### I CA, DDI2, MG3, PHOS3, FERR3, CRP2, HEMDF, LDH3, LFT3, BMP3M ####[address] [place] [place], [place] Urea nitrogen [Mass/Vol] 15 mg/dL Normal 7-20 [facility] Comment on above: Performed By: #### I CA, DDI2, MG3, PHOS3, FERR3, CRP2, HEMDF, LDH3, LFT3, BMP3M ####[address] [place] [place], [place] Creatinine [Mass/Vol] 0.56 mg/dL Normal 0.52-1.25 [facility] Comment on above: Performed By: #### I CA, DDI2, MG3, PHOS3, FERR3, CRP2, HEMDF, LDH3, LFT3, BMP3M ####[id number] [place], [place] eGFR OTHER > 90.0 Normal >60 [facility] Comment on above: Result Comment: KDIG O guidelines provide the following GFR categories:Stage GFR(ml/min/1.73 m2) TermsG1 >=90 Normal or highG2 60-89 Mildly decreased*G3a 45-59 Mildly to moderately [id number] 30-44 Moderately to severely decreasedG4 15-29 Severely [...] PHOS3, FERR3, CRP2, HEMDF, LDH3, LFT3, BMP3M ####[id number] [place], [place] GFR/1.73 sq M.predicted among blacks MDRD (S/P/Bld) [Vol rate/Area] mL/min/{1.73_m2} Normal >60 [facility] Comment on above: Performed By: #### I CA, DDI2, MG3, PHOS3, FERR3, CRP2, HEMDF, LDH3, LFT3, BMP3M ####[address] [place], [place] Chloride [Moles/Vol] 105 mmol/L Normal 98-107 [facility] Comment on above: Performed By: #### I CA, DDI2, MG3, PHOS3, FERR3, CRP2, HEMDF, LDH3, LFT3, BMP3M ####[address] [place], [place] Potassium [Moles/Vol] 4.4 mmol/L Normal 3.5-5.1 [facility] Comment on above: Performed By: #### I CA, DDI2, MG3, PHOS3, FERR3, CRP2, HEMDF, LDH3, LFT3, BMP3M ####[address] [place] [address] Sodium [Moles/Vol] 140 mmol/L Normal 135-145 [facility] Comment on above: Performed By: #### I CA, DDI2, MG3, PHOS3, FERR3, CRP2, HEMDF, LDH3, LFT3, BMP3M ####[address] C-Reactive Proteinon 021 CRP [Mass/Vol] 146.8 mg/L High 0.0-6.0 [facility] Comment on above: Result Comment: . Performed By: #### I CA, DDI2, MG3, PHOS3, FERR3, CRP2, HEMDF, LDH3, LFT3, BMP3M ####[address] CR Chest Portableon 06-04-20 21 CR Chest Portable Normal [facility] Calcium,Ionizedon 06-04-2021 Ionized Ca,Measured 4.40 mg/dL Normal 4.30-5.20 [facility] Comment on above: Performed By: #### I CA, DDI2, MG3, PHOS3, FERR3, CRP2, HEMDF, LDH3, LFT3, BMP3M ####[address] [place], [place] pH, Ionized Calcium 7.41 Normal 7.31-7.46 [facility] Comment on above: Performed By: #### I CA, DDI2, MG3, PHOS3, FERR3, CRP2, HEMDF, LDH3, LFT3, BMP3M ####[address] [place] [address] Complete Urinalysison 2020 Appearance (U) Clear Normal Clear [facility] Comment on above: Result Comment: . Performed By: #### N AURR, CUA2, CRTUR, OSMUR ####[facility] [employer] [id number] . [place], [place] Bacteria Few Abnormal Negative [facility] Comment on above: Result Comment: . Performed By: #### N AURR, CUA2, CRTUR, OSMUR ####[place] [address] [place], [place] Bilirubin,Urine Negative Normal Negative [facility] Comment on above: Result Comment: . Performed By: #### N AURR, CUA2, CRTUR, OSMUR ####[address] Color (U) Light-Yellow Normal Lt. Yellow [facility] Comment on above: Result Comment: . Performed By: #### N AURR, CUA2, CRTUR, OSMUR ####[address] Glucose Ql (U) Normal Normal Normal (<70) [facility] Comment on above: Result Comment: . Performed By: #### N AURR, CUA2, CRTUR, OSMUR ####[facility] [employer] [address] Ketone,Urine Negative Normal Negative [facility] Comment on above: Result Comment: . Performed By: #### N AURR, CUA2, CRTUR, OSMUR ####[facility] [employer] [address] [place], [place] Leukocytes,Urine Negative Normal Negative [facility] Comment on above: Result Comment: . Performed By: #### N AURR, CUA2, CRTUR, OSMUR ####[facility] [employer] [address] Mucous Threads Few Normal Negative [facility] Comment on above: Result Comment: . Performed By: #### N AURR, CUA2, CRTUR, OSMUR ####[address] Nitrites,Urine Negative Normal Negative [facility] Comment on above: Result Comment: . Performed By: #### N AURR, CUA2, CRTUR, OSMUR ####[address] Occult Blood,Urine 1.0 mg/dL Abnormal Negative [facility] Comment on above: Result Comment: . Performed By: #### N AURR, CUA2, CRTUR, OSMUR ####[address] pH,Urine 5.5 Normal 5.0-8.0 [facility] Comment on above: Result Comment: . Performed By: #### N AURR, CUA2, CRTUR, OSMUR ####[address] Protein (U) [Mass/Vol] 30 mg/dL Abnormal Negative [facility] Comment on above: Result Comment: . Performed By: #### N AURR, CUA2, CRTUR, OSMUR ####[address] RBC, Urine 0 - 2 Normal 0-2 [facility] Comment on above: Result Comment: . Performed By: #### N AURR, CUA2, CRTUR, OSMUR ####[address] Specific [place],Urine 1.011 Normal 1.005 - 1.030 [facility] Comment on above: Result Comment: . Performed By: #### N AURR, CUA2, CRTUR, OSMUR ####[address] Squamous Epithelial Negative Normal 3-5 [facility] Comment on above: Result Comment: . Performed By: #### N AURR, CUA2, CRTUR, OSMUR ####[address] Urobilinogen,Urine Normal Normal Normal (0-1) [facility] Comment on above: Result Comment: . Performed By: #### N AURR, CUA2, CRTUR, OSMUR ####[address] [place] [address] WBC, Urine 0 - 2 Normal 0-5 [facility] Comment on above: Result Comment: . Performed By: #### N AURR, CUA2, CRTUR, OSMUR ####[address] [place] [address] Creatinine, Ur Randomon 07-0 Creatinine, Ur Random 60.1 mg/dL Normal [facility] Comment on above: Performed By: #### N AURR, CUA2, CRTUR, OSMUR ####[address] [address] [place] [address] D-Dimer, Innovanceon 021 D-Dimer, Innovance 7.94 mg/L High <0.19-0.50 [facility] Comment on above: Result Comment: Inno carrington D-Dimer values of <0.50 mg/L FEU can be used incombination with a pre-test probability model (e.g. Well's)to exclude pulmonary embolism (PE) disease, as well as jodi in the diagnosis of deep vein thrombosis (DVT). Performed By: #### I CA, DDI2, MG3, PHOS3, FERR3, CRP2, HEMDF, LDH3, LFT3, BMP3M ####[address] [place] [address] Ferritinon 06-04-2021 Ferritin [Mass/Vol] 215 ng/mL Normal 8-252 [facility] Comment on above: Performed By: #### I CA, DDI2, MG3, PHOS3, FERR3, CRP2, HEMDF, LDH3, LFT3, BMP3M ####[address] [place] [address] Glucose,Bedsideon 06-04-2021 Glucose [Mass/Vol] 193 mg/dL High 70-100 [facility] Comment on above: Result Comment: Test performed by glucose meter. Results may be 10%-15% lowerthan serum/plasma values. (CLIA ID [id number]) Performed By: #### B GLU ####[facility] [address] Glucose [Mass/Vol] 195 mg/dL High 70-100 [facility] Comment on above: Result Comment: Test performed by glucose meter. Results may be 10%-15% lowerthan serum/plasma values. (CLIA ID [id number]) Performed By: #### B GLU ####[address] Hemogram w/ Autodiffon 06-04 Abs Baso Cnt 0.0 10*3/uL Normal 0.0-0.2 [facility] Comment on above: Performed By: #### I CA, DDI2, MG3, PHOS3, FERR3, CRP2, HEMDF, LDH3, LFT3, BMP3M ####[address] Abs Neutrophile Cnt 4.8 10*3/uL Normal 1.8-7.0 [facility] Comment on above: Performed By: #### I CA, DDI2, MG3, PHOS3, FERR3, CRP2, HEMDF, LDH3, LFT3, BMP3M ####[address] Basophils/100 WBC (Bld) 0.2 % Normal 0.0-2.0 [facility] Comment on above: Performed By: #### I CA, DDI2, MG3, PHOS3, FERR3, CRP2, HEMDF, LDH3, LFT3, BMP3M ####[address] Eosinophils (Bld) [#/Vol] 0.0 10*3/uL Normal 0.0-0.5 [facility] Comment on above: Performed By: #### I CA, DDI2, MG3, PHOS3, FERR3, CRP2, HEMDF, LDH3, LFT3, BMP3M ####[address] Eosinophils/100 WBC (Bld) 0.0 % Low 1.0-6.0 [facility] Comment on above: Performed By: #### I CA, DDI2, MG3, PHOS3, FERR3, CRP2, HEMDF, LDH3, LFT3, BMP3M ####[address] Erythrocyte distribution width (RBC) [Ratio] 19.8 % High 11.5-14.5 [facility] Comment on above: Performed By: #### I CA, DDI2, MG3, PHOS3, FERR3, CRP2, HEMDF, LDH3, LFT3, BMP3M ####[address] Granulocytes/100 WBC (Bld) 85.7 % High 40.0-80.0 [facility] Comment on above: Performed By: #### I CA, DDI2, MG3, PHOS3, FERR3, CRP2, HEMDF, LDH3, LFT3, BMP3M ####[address] Hematocrit (Bld) [Volume fraction] 37.6 % Normal 35.0-47.0 [facility] Comment on above: Performed By: #### I CA, DDI2, MG3, PHOS3, FERR3, CRP2, HEMDF, LDH3, LFT3, BMP3M ####[address] Hemoglobin (Bld) [Mass/Vol] 12.0 g/dL Normal 11.7-16.0 [facility] Comment on above: Performed By: #### I CA, DDI2, MG3, PHOS3, FERR3, CRP2, HEMDF, LDH3, LFT3, BMP3M ####[address] Lymphocytes (Bld) [#/Vol] 0.4 10*3/uL Low 1.0-4.3 [facility] Comment on above: Performed By: #### I CA, DDI2, MG3, PHOS3, FERR3, CRP2, HEMDF, LDH3, LFT3, BMP3M ####[id number] [place], [place] Lymphocytes/100 WBC (Bld) 6.5 % Low 20.0-40.0 [facility] Comment on above: Performed By: #### I CA, DDI2, MG3, PHOS3, FERR3, CRP2, HEMDF, LDH3, LFT3, BMP3M ####[id number] [place], [place] MCH (RBC) [Entitic mass] 22.6 pg Low 26.0-34.0 [facility] Comment on above: Performed By: #### I CA, DDI2, MG3, PHOS3, FERR3, CRP2, HEMDF, LDH3, LFT3, BMP3M ####[address] MCHC 31.8 % Low 32.0-36.0 [facility] Comment on above: Performed By: #### I CA, DDI2, MG3, PHOS3, FERR3, CRP2, HEMDF, LDH3, LFT3, BMP3M ####[address] MCV (RBC) [Entitic vol] 71.0 fL Low 79.0-98.0 [facility] Comment on above: Performed By: #### I CA, DDI2, MG3, PHOS3, FERR3, CRP2, HEMDF, LDH3, LFT3, BMP3M ####[address] Monocytes (Bld) [#/Vol] 0.4 10*3/uL Normal 0.0-0.8 [facility] Comment on above: Performed By: #### I CA, DDI2, MG3, PHOS3, FERR3, CRP2, HEMDF, LDH3, LFT3, BMP3M ####[address] Monocytes/100 WBC (Bld) 7.6 % Normal 2.0-10.0 [facility] Comment on above: Performed By: #### I CA, DDI2, MG3, PHOS3, FERR3, CRP2, HEMDF, LDH3, LFT3, BMP3M ####[id number] [place], [place] Platelet mean volume (Bld) [Entitic vol] 8.6 fL Normal 7.4-10.4 [facility] Comment on above: Performed By: #### I CA, DDI2, MG3, PHOS3, FERR3, CRP2, HEMDF, LDH3, LFT3, BMP3M ####[id number] [place], [place] Platelets (Bld) [#/Vol] 204 10*3/uL Normal 140-440 [facility] [facility] Comment on above: Performed By: #### I CA, DDI2, MG3, PHOS3, FERR3, CRP2, HEMDF, LDH3, LFT3, BMP3M ####[id number] [place], [place] RBC (Bld) [#/Vol] 5.30 10*6/uL High 3.80-5.20 [facility] Comment on above: Performed By: #### I CA, DDI2, MG3, PHOS3, FERR3, CRP2, HEMDF, LDH3, LFT3, BMP3M ####[address] [place], [place] WBC (Bld) [#/Vol] 5.6 10*3/uL Normal 3.6-10.7 [facility] Comment on above: Performed By: #### I CA, DDI2, MG3, PHOS3, FERR3, CRP2, HEMDF, LDH3, LFT3, BMP3M ####[address] [place], [place] Hepatic Functionon 1 ALP [Catalytic activity/Vol] 100 U/L Normal 38-126 [facility] Comment on above: Performed By: #### I CA, DDI2, MG3, PHOS3, FERR3, CRP2, HEMDF, LDH3, LFT3, BMP3M ####[address] [place], [place] ALT [Catalytic activity/Vol] 40 U/L High 0-34 [facility] Comment on above: Result Comment: The ALT test is performed by an updated assay method.Please note that the reference intervals have beenchanged and are now sex specific. Performed By: #### I CA, DDI2, MG3, PHOS3, FERR3, CRP2, HEMDF, LDH3, LFT3, BMP3M ####[address] [place], [place] AST [Catalytic activity/Vol] 78 U/L High 15-46 [facility] Comment on above: Performed By: #### I CA, DDI2, MG3, PHOS3, FERR3, CRP2, HEMDF, LDH3, LFT3, BMP3M ####[address] [place], [place] Bilirubin [Mass/Vol] 0.3 mg/dL Normal 0.2-1.3 [facility] Comment on above: Performed By: #### I CA, DDI2, MG3, PHOS3, FERR3, CRP2, HEMDF, LDH3, LFT3, BMP3M ####[address] [place], [place] Bilirubin.indirect [Mass/Vol] 0.0 mg/dL Normal 0.0-0.3 [facility] Comment on above: Performed By: #### I CA, DDI2, MG3, PHOS3, FERR3, CRP2, HEMDF, LDH3, LFT3, BMP3M ####[address] [place], [place] Protein [Mass/Vol] 6.7 g/dL Normal 6.3-8.2 [facility] Comment on above: Performed By: #### I CA, DDI2, MG3, PHOS3, FERR3, CRP2, HEMDF, LDH3, LFT3, BMP3M ####[address] [place], [place] Albumin [Mass/Vol] 3.2 g/dL Low 3.5-5.0 [facility] Comment on above: Performed By: #### I CA, DDI2, MG3, PHOS3, FERR3, CRP2, HEMDF, LDH3, LFT3, BMP3M ####[address] [place] [address] LDHon 06-04-2021 LDH 576 U/L High 120-246 [facility] Comment on above: Performed By: #### I CA, DDI2, MG3, PHOS3, FERR3, CRP2, HEMDF, LDH3, LFT3, BMP3M ####[address] [place] [address] LEGIONELLA AG, URINEon 06-04 LEGIONELLA AG, URINE LEGIONELLA AG, URIN E --> Status: F Legionella antigen NOT DETECTED. Normal [facility] Comment on above: Performed By: #### S PARICHARD LEGRICHARD ####[address] [place] [address] Magnesiumon 06-04-2021 Magnesium [Mass/Vol] 2.1 mg/dL Normal 1.6-2.3 [facility] Comment on above: Performed By: #### I CA, DDI2, MG3, PHOS3, FERR3, CRP2, HEMDF, LDH3, LFT3, BMP3M ####[address] [place] [address] Osmolality,Urineon Osmolality,Urine 335 mosm/kg Normal 300-1000 [facility] Comment on above: Performed By: #### N AURR, CUA2, CRTUR, OSMUR ####[address] [place] [address] PNEUMONIA PCR PANELon 2020 PNEUMONIA PCR PANEL Normal [facility] Comment on above: Performed By: #### B FPNE ####[address] [place] [address] Phosphoruson 06-04-2021 Phosphate [Mass/Vol] 3.5 mg/dL Normal 2.5-4.5 [facility] Comment on above: Performed By: #### I CA, DDI2, MG3, PHOS3, FERR3, CRP2, HEMDF, LDH3, LFT3, BMP3M ####[facility] [employer] [id number] [place], [place] STAIN GRAMon 06-04-2021 STAIN GRAM Normal [facility] Comment on above: Performed By: #### S /GRM, CS/RE ####[facility] [place], [place] STREP PNEUMO ANTIGEN, URINEo n 06-04-2021 STREP PNEUMO ANTIGEN, URINE STREP PNEUMO ANTIGEN, URINE --> Status: F Strep pneumo antigen NOT DETECTED. Normal [facility] Comment on above: Performed By: #### S PARICHARD LEGUR ####[facility] [employer] [id number] [place], [place] Sodium, Ur Randomon 06-04-20 21 Sodium [Moles/Vol] 8 mmol/L Low 30-90 [facility] Comment on above: Performed By: #### N AURR, CUA2, CRTUR, OSMUR ####[facility] [employer] [id number] [place], [place] Transferrinon 06-04-2021 Transferrin [Mass/Vol] 277 mg/dL Normal 206-381 [facility] Comment on above: Performed By: #### C ORTL, QTF, DDI2, PT, CK3, ICA, FEIBC, LIPD2, TROPN, LACT3, MG3, FERR3, HA1C2, APTT, BNP3, PHOS3, PCAL, HEMDF, CRP2, LDH3, BMP3M, TSH5 ####[facility] [employer] [id number] [place], [place] #### TRFN, VD25H ####[facility] [place] [address] VL Venous Duplex US Lower Ex t Bilateralon 06-04-2021 VL Venous Duplex US Lower Ext Bilateral Normal [facility] Vit D 25-OH, Totalon 021 Vit D 25-OH, Total 19 ng/mL Low 30-100 [facility] Comment on above: Result Comment: Ther apy is based on measurement of Total 25- OHD with thefollowing classification levels:Less than 20 ng/mL: Indicative of Vit D [id number] ng/mL: Suggests Vit D insufficiencyOptimal: Greater than or equal to 30 ng/mLTest performed by [facility] Competitive Immunoassay,measuring Total Vitamin D, not individual fractions. Performed By: #### C ORTL, QTF, DDI2, PT, CK3, ICA, FEIBC, LIPD2, TROPN, LACT3, MG3, FERR3, HA1C2, APTT, BNP3, PHOS3, PCAL, HEMDF, CRP2, LDH3, BMP3M, TSH5 ####[address] #### CADET25H ####[address] [address] APTTon 06-03-2021 aPTT Coag (Bld) [Time] 26.2 s Normal 20.0-30.5 [facility] Comment on above: Result Comment: NOTE : The therapeutic time for Heparin anticoagulation,based on Xa activity inhibition, is an APTT of 46-80seconds. Performed By: #### C ORTL, QTF, DDI2, PT, CK3, ICA, FEIBC, LIPD2, TROPN, LACT3, MG3, FERR3, HA1C2, APTT, BNP3, PHOS3, PCAL, HEMDF, CRP2, LDH3, BMP3M, TSH5 ####[address] #### CADET25H ####[address] [address] Arterial Blood Gaseson 06-03 CO2 [Moles/Vol] 27.6 mmol/L High 23.0-27.0 [facility] Comment on above: Performed By: #### A BG ####[address] [place], [place] HCO3 (Bld) [Moles/Vol] 26.5 mmol/L High 21.0-25.0 [facility] Comment on above: Performed By: #### A BG ####[address] [place], [place] Hemoglobin (Bld) [Mass/Vol] 12.8 g/dL Normal ScreenOnly [facility] Comment on above: Performed By: #### A BG ####[address] Oxygen (Bld) [Partial pressure] 72.2 mm[Hg] Low 80.0-100.0 [facility] Comment on above: Performed By: #### A BG ####[address] Oxygen saturation in Blood 93.7 % Low 95.0-100.0 [facility] Comment on above: Performed By: #### A BG ####[address] pCO2 38.0 mm[Hg] Normal 35.0-45.0 [facility] Comment on above: Performed By: #### A BG ####[address] pH 7.461 High 7.350-7.450 [facility] Comment on above: Performed By: #### A BG ####[address] Std Base Excess 2.7 mmol/L Normal -3.0-3.0 [facility] Comment on above: Performed By: #### A BG ####[address] FIO2 100% Normal [facility] Comment on above: Performed By: #### A BG ####[address] Basic Metabolic Panelon 07-0 Anion gap [Moles/Vol] 7 mmol/L Normal 3-13 [facility] Comment on above: Performed By: #### C ORTL, QTF, DDI2, PT, CK3, ICA, FEIBC, LIPD2, TROPN, LACT3, MG3, FERR3, HA1C2, APTT, BNP3, PHOS3, PCAL, HEMDF, CRP2, LDH3, BMP3M, TSH5 ####[address] #### OZIEL VD25H ####[address] [place] [address] Calcium [Mass/Vol] 8.5 mg/dL Normal 8.4-10.4 [facility] Comment on above: Performed By: #### C ORTL, QTF, DDI2, PT, CK3, ICA, FEIBC, LIPD2, TROPN, LACT3, MG3, FERR3, HA1C2, APTT, BNP3, PHOS3, PCAL, HEMDF, CRP2, LDH3, BMP3M, TSH5 ####[address] #### OZIEL VD25H ####[address] [place] [address] CO2 [Moles/Vol] 27 mmol/L Normal 22-30 [facility] Comment on above: Performed By: #### C ORTL, QTF, DDI2, PT, CK3, ICA, FEIBC, LIPD2, TROPN, LACT3, MG3, FERR3, HA1C2, APTT, BNP3, PHOS3, PCAL, HEMDF, CRP2, LDH3, BMP3M, TSH5 ####[address] #### OZIEL VD25H ####[address] [place] [address] Glucose [Mass/Vol] 140 mg/dL High 70-100 [facility] Comment on above: Performed By: #### C ORTL, QTF, DDI2, PT, CK3, ICA, FEIBC, LIPD2, TROPN, LACT3, MG3, FERR3, HA1C2, APTT, BNP3, PHOS3, PCAL, HEMDF, CRP2, LDH3, BMP3M, TSH5 ####[address] #### OZIEL, VD25H ####[address] [place] [address] Urea nitrogen [Mass/Vol] 13 mg/dL Normal 7-20 [facility] Comment on above: Performed By: #### C ORTL, QTF, DDI2, PT, CK3, ICA, FEIBC, LIPD2, TROPN, LACT3, MG3, FERR3, HA1C2, APTT, BNP3, PHOS3, PCAL, HEMDF, CRP2, LDH3, BMP3M, TSH5 ####[address] #### OZIEL VD25H ####[address] [place] [address] Creatinine [Mass/Vol] 0.54 mg/dL Normal 0.52-1.25 [facility] Comment on above: Performed By: #### C ORTL, QTF, DDI2, PT, CK3, ICA, FEIBC, LIPD2, TROPN, LACT3, MG3, FERR3, HA1C2, APTT, BNP3, PHOS3, PCAL, HEMDF, CRP2, LDH3, BMP3M, TSH5 ####[address] #### OZIEL, VD25H ####[address] [place] [address] eGFR OTHER > 90.0 Normal >60 [facility] Comment on above: Result Comment: KDIG O guidelines provide the following GFR categories:Stage GFR(ml/min/1.73 m2) TermsG1 >=90 Normal or highG2 60-89 Mildly decreased*G3a 45-59 Mildly to moderately [id number] 30-44 Moderately to severely decreasedG4 15-29 Severely [...] PHOS3, PCAL, HEMDF, CRP2, LDH3, BMP3M, TSH5 ####[address] [address]#### OZIEL VD25H ####[address] [place] [address] GFR/1.73 sq M.predicted among blacks MDRD (S/P/Bld) [Vol rate/Area] mL/min/{1.73_m2} Normal >60 [facility] Comment on above: Performed By: #### C ORTL, QTF, DDI2, PT, CK3, ICA, FEIBC, LIPD2, TROPN, LACT3, MG3, FERR3, HA1C2, APTT, BNP3, PHOS3, PCAL, HEMDF, CRP2, LDH3, BMP3M, TSH5 ####[address] #### OZIEL VD25H ####[address] [place] [address] Chloride [Moles/Vol] 106 mmol/L Normal 98-107 [facility] Comment on above: Performed By: #### C ORTL, QTF, DDI2, PT, CK3, ICA, FEIBC, LIPD2, TROPN, LACT3, MG3, FERR3, HA1C2, APTT, BNP3, PHOS3, PCAL, HEMDF, CRP2, LDH3, BMP3M, TSH5 ####[address] [address]#### TRCINDY, VD25H ####[address] [place] [address] Potassium [Moles/Vol] 4.3 mmol/L Normal 3.5-5.1 [facility] Comment on above: Performed By: #### C ORTL, QTF, DDI2, PT, CK3, ICA, FEIBC, LIPD2, TROPN, LACT3, MG3, FERR3, HA1C2, APTT, BNP3, PHOS3, PCAL, HEMDF, CRP2, LDH3, BMP3M, TSH5 ####[facility] [employer] [id number] [place], [place] #### OZIEL, VD25H ####[facility] [employer] [address] [place] [address] Sodium [Moles/Vol] 140 mmol/L Normal 135-145 [facility] Comment on above: Performed By: #### C ORTL, QTF, DDI2, PT, CK3, ICA, FEIBC, LIPD2, TROPN, LACT3, MG3, FERR3, HA1C2, APTT, BNP3, PHOS3, PCAL, HEMDF, CRP2, LDH3, BMP3M, TSH5 ####[facility] [employer] [address] #### OZIEL VD25H ####[facility] [employer] [address] [place] [address] C REACTIVE PROTEINOrdered By : Flash De La Rosa on 06-03-2021 CRP [Mass/Vol] 181.1 mg/L High 0 - 10.0 MG/L [facility] C-Reactive Proteinon CRP [Mass/Vol] 158.7 mg/L High 0.0-6.0 [facility] Comment on above: Result Comment: . Performed By: #### C ORTL, QTF, DDI2, PT, CK3, ICA, FEIBC, LIPD2, TROPN, LACT3, MG3, FERR3, HA1C2, APTT, BNP3, PHOS3, PCAL, HEMDF, CRP2, LDH3, BMP3M, TSH5 ####[facility] [employer] [id number] [place], [place] #### OZIEL, VD25H ####[facility] [place] [address] CKon 06-03-2021 CK [Catalytic activity/Vol] 160 U/L Normal 30-170 [facility] Comment on above: Performed By: #### C ORTL, QTF, DDI2, PT, CK3, ICA, FEIBC, LIPD2, TROPN, LACT3, MG3, FERR3, HA1C2, APTT, BNP3, PHOS3, PCAL, HEMDF, CRP2, LDH3, BMP3M, TSH5 ####[facility] [place] [address]#### TRFN, VD25H ####[facility] [place] [address] COMPREHENSIVE METABOLIC PANE LOrdered By: Flash De La Rosa on 06-03-2021 Albumin [Mass/Vol] 2.9 G/dl Low 3.5 - 5.0 G/dl [facility] Albumin/Globulin [Mass ratio] 0.7 {ratio} Low [facility] ALP [Catalytic activity/Vol] 74 U/L [facility] ALT [Catalytic activity/Vol] 37 U/L [facility] AST [Catalytic activity/Vol] 58 U/L High [facility] Bilirubin [Mass/Vol] 0.3 mg/dL [facility] Calcium [Mass/Vol] 8.2 mg/dL Low [facility] Chloride [Moles/Vol] 103 mmol/L [facility] CO2 [Moles/Vol] 24 mmol/L [facility] Creatinine [Mass/Vol] 0.71 mg/dL [facility] GFR COMMENT Average GFR for 50-5 9 years old = 93. [facility] Comment on above: Chronic Kidney disea se, GFR = <60. Kidney failure, GFR = <15. The GFR estimate is not adjusted for extreme body surface area or acute process, nor has it been validated for women or ethnic groups other than and . GFR/1.73 sq M.predicted among blacks MDRD (S/P/Bld) [Vol rate/Area] mL/min/{1.73_m2} ml/min/1.73s q.m [facility] GFR/1.73 sq M.predicted among non-blacks MDRD (S/P/Bld) [Vol rate/Area] mL/min/{1.73_m2} ml/min/1.73s q.m [facility] Glucose post fast [Mass/Vol] 153 mg/dL High [facility] Comment on above: NORMAL <100 mg/dL PREDIABETES 101-126 mg/dL DIABETES 126 mg/dL or higher Potassium [Moles/Vol] 4.3 mmol/L [facility] Protein [Mass/Vol] 7.3 g/dL [facility] Sodium [Moles/Vol] 138 mmol/L [facility] Urea nitrogen [Mass/Vol] 13 mg/dL [facility] CR Chest Portableon 06-03-20 CR Chest Portable Normal [facility] Calcium,Ionizedon 06-03-2021 Ionized Ca,Measured 3.90 mg/dL Low 4.30-5.20 [facility] Comment on above: Performed By: #### C ORTL, QTF, DDI2, PT, CK3, ICA, FEIBC, LIPD2, TROPN, LACT3, MG3, FERR3, HA1C2, APTT, BNP3, PHOS3, PCAL, HEMDF, CRP2, LDH3, BMP3M, TSH5 ####[facility] [employer] [id number] [place], [place] #### OZIEL VD25H ####[facility] [place] [address] pH, Ionized Calcium 7.40 Normal 7.31-7.46 [facility] Comment on above: Performed By: #### C ORTL, QTF, DDI2, PT, CK3, ICA, FEIBC, LIPD2, TROPN, LACT3, MG3, FERR3, HA1C2, APTT, BNP3, PHOS3, PCAL, HEMDF, CRP2, LDH3, BMP3M, TSH5 ####[facility] [employer] [id number] [place] [address]#### TRFN, VD25H ####[facility] [place] [address] Cortisolon 06-03-2021 Cortisol 4.5 ug/dL Normal [facility] Comment on above: Result Comment: Befo re 10am 4.5-22.7 ug/dLAfter 5pm 1.7-14.1 ug/dL Performed By: #### C ORTL, QTF, DDI2, PT, CK3, ICA, FEIBC, LIPD2, TROPN, LACT3, MG3, FERR3, HA1C2, APTT, BNP3, PHOS3, PCAL, HEMDF, CRP2, LDH3, BMP3M, TSH5 ####[facility] [employer] [id number] [place], [place] #### TRFN, VD25H ####[employer] [id number] [place] [address] D-Dimer, Innovanceon 021 D-Dimer, [employer] 3.88 mg/L High <0.19-0.50 [facility] Comment on above: Result Comment: Inno [...] PHOS3, PCAL, HEMDF, CRP2, LDH3, BMP3M, TSH5 ####[id number] [place] [address] #### TRFN, VD25H ####[employer] [id number] [place] [address] Ferritinon 06-03-2021 Ferritin [Mass/Vol] 216 ng/mL Normal 8-252 [facility] Comment on above: Performed By: #### C ORTL, QTF, DDI2, PT, CK3, ICA, FEIBC, LIPD2, TROPN, LACT3, MG3, FERR3, HA1C2, APTT, BNP3, PHOS3, PCAL, HEMDF, CRP2, LDH3, BMP3M, TSH5 ####[address] [place] [address]#### OZIEL VD25H ####[address] [place] [address] HEMOGLOBIN & HEMATOCRITOrder ed By: Flash De La Rosa on 06-03-2021 Hematocrit (Bld) [Volume fraction] 35.8 % Low 36.0 - 48.0 % [facility] Hemoglobin (Bld) [Mass/Vol] 11.5 g/dL Low [facility] Interpretation and review of laboratory results Abnormal [facility] Hematocrit (Bld) [Volume fraction] 35.6 % Low 36.0 - 48.0 % [facility] Hemoglobin (Bld) [Mass/Vol] 11.3 g/dL Low [facility] Interpretation and review of laboratory results Abnormal [facility] Hemoglobin A1Con 06-03-2021 Glucose [Mass/Vol] 128 mg/dL Normal [facility] Comment on above: Performed By: #### C ORTL, QTF, DDI2, PT, CK3, ICA, FEIBC, LIPD2, TROPN, LACT3, MG3, FERR3, HA1C2, APTT, BNP3, PHOS3, PCAL, HEMDF, CRP2, LDH3, BMP3M, TSH5 ####[address] [place] [address]#### OZIEL VD25H ####[address] [place] [address] HbA1c (Bld) [Mass fraction] 6.1 % Abnormal [facility] Comment on above: Result Comment: Norm al less than 5.7%Prediabetes 5.7% to 6.4%Diabetes 6.5% or higher--HgbA1C levels may not be accurate in patients who haverenal disease, received recent blood transfusions, are anemic,or who have dyshemoglobinemia. Performed By: #### C ORTL, QTF, DDI2, PT, CK3, ICA, FEIBC, LIPD2, TROPN, LACT3, MG3, FERR3, HA1C2, APTT, BNP3, PHOS3, PCAL, HEMDF, CRP2, LDH3, BMP3M, TSH5 ####[address] #### OZIEL VD25H ####[address] [address] Hemogram w/ Autodiffon 06-03 Abs Baso Cnt 0.0 10*3/uL Normal 0.0-0.2 [facility] Comment on above: Performed By: #### C ORTL, QTF, DDI2, PT, CK3, ICA, FEIBC, LIPD2, TROPN, LACT3, MG3, FERR3, HA1C2, APTT, BNP3, PHOS3, PCAL, HEMDF, CRP2, LDH3, BMP3M, TSH5 ####[address] #### OZIEL VD25H ####[address] [address] Abs Neutrophile Cnt 2.4 10*3/uL Normal 1.8-7.0 [facility] Comment on above: Performed By: #### C ORTL, QTF, DDI2, PT, CK3, ICA, FEIBC, LIPD2, TROPN, LACT3, MG3, FERR3, HA1C2, APTT, BNP3, PHOS3, PCAL, HEMDF, CRP2, LDH3, BMP3M, TSH5 ####[address] #### OZIEL VD25H ####[address] [address] Basophils/100 WBC (Bld) 0.1 % Normal 0.0-2.0 [facility] Comment on above: Performed By: #### C ORTL, QTF, DDI2, PT, CK3, ICA, FEIBC, LIPD2, TROPN, LACT3, MG3, FERR3, HA1C2, APTT, BNP3, PHOS3, PCAL, HEMDF, CRP2, LDH3, BMP3M, TSH5 ####[address] #### CADET25H ####[address] [place] [address] Eosinophils (Bld) [#/Vol] 0.0 10*3/uL Normal 0.0-0.5 [facility] Comment on above: Performed By: #### C ORTL, QTF, DDI2, PT, CK3, ICA, FEIBC, LIPD2, TROPN, LACT3, MG3, FERR3, HA1C2, APTT, BNP3, PHOS3, PCAL, HEMDF, CRP2, LDH3, BMP3M, TSH5 ####[address] #### CADET25H ####[address] [place] [address] Eosinophils/100 WBC (Bld) 0.0 % Low 1.0-6.0 [facility] Comment on above: Performed By: #### C ORTL, QTF, DDI2, PT, CK3, ICA, FEIBC, LIPD2, TROPN, LACT3, MG3, FERR3, HA1C2, APTT, BNP3, PHOS3, PCAL, HEMDF, CRP2, LDH3, BMP3M, TSH5 ####[address] #### CADET25H ####[address] [place] [address] Erythrocyte distribution width (RBC) [Ratio] 19.9 % High 11.5-14.5 [facility] Comment on above: Performed By: #### C ORTL, QTF, DDI2, PT, CK3, ICA, FEIBC, LIPD2, TROPN, LACT3, MG3, FERR3, HA1C2, APTT, BNP3, PHOS3, PCAL, HEMDF, CRP2, LDH3, BMP3M, TSH5 ####[address] #### TRFN, VD25H ####[address] [place] [address] Granulocytes/100 WBC (Bld) 80.0 % Normal 40.0-80.0 [facility] Comment on above: Performed By: #### C ORTL, QTF, DDI2, PT, CK3, ICA, FEIBC, LIPD2, TROPN, LACT3, MG3, FERR3, HA1C2, APTT, BNP3, PHOS3, PCAL, HEMDF, CRP2, LDH3, BMP3M, TSH5 ####[address] #### OZIEL VD25H ####[address] [place] [address] Hematocrit (Bld) [Volume fraction] 37.4 % Normal 35.0-47.0 [facility] Comment on above: Performed By: #### C ORTL, QTF, DDI2, PT, CK3, ICA, FEIBC, LIPD2, TROPN, LACT3, MG3, FERR3, HA1C2, APTT, BNP3, PHOS3, PCAL, HEMDF, CRP2, LDH3, BMP3M, TSH5 ####[address] #### OZIEL VD25H ####[address] [place] [address] Hemoglobin (Bld) [Mass/Vol] 11.8 g/dL Normal 11.7-16.0 [facility] Comment on above: Performed By: #### C ORTL, QTF, DDI2, PT, CK3, ICA, FEIBC, LIPD2, TROPN, LACT3, MG3, FERR3, HA1C2, APTT, BNP3, PHOS3, PCAL, HEMDF, CRP2, LDH3, BMP3M, TSH5 ####[address] #### OZIEL, VD25H ####[address] [place] [address] Lymphocytes (Bld) [#/Vol] 0.3 10*3/uL Low 1.0-4.3 [facility] Comment on above: Performed By: #### C ORTL, QTF, DDI2, PT, CK3, ICA, FEIBC, LIPD2, TROPN, LACT3, MG3, FERR3, HA1C2, APTT, BNP3, PHOS3, PCAL, HEMDF, CRP2, LDH3, BMP3M, TSH5 ####[address] #### OZIEL VD25H ####[address] [place] [address] Lymphocytes/100 WBC (Bld) 10.0 % Low 20.0-40.0 [facility] Comment on above: Performed By: #### C ORTL, QTF, DDI2, PT, CK3, ICA, FEIBC, LIPD2, TROPN, LACT3, MG3, FERR3, HA1C2, APTT, BNP3, PHOS3, PCAL, HEMDF, CRP2, LDH3, BMP3M, TSH5 ####[address] #### OZIEL [id number] ####[address] [place] [address] MCH (RBC) [Entitic mass] 22.6 pg Low 26.0-34.0 [facility] Comment on above: Performed By: #### C ORTL, QTF, DDI2, PT, CK3, ICA, FEIBC, LIPD2, TROPN, LACT3, MG3, FERR3, HA1C2, APTT, BNP3, PHOS3, PCAL, HEMDF, CRP2, LDH3, BMP3M, TSH5 ####[address] #### OZIEL, [id number] ####[address] [place] [address] MCHC 31.6 % Low 32.0-36.0 [facility] Comment on above: Performed By: #### C ORTL, QTF, DDI2, PT, CK3, ICA, FEIBC, LIPD2, TROPN, LACT3, MG3, FERR3, HA1C2, APTT, BNP3, PHOS3, PCAL, HEMDF, CRP2, LDH3, BMP3M, TSH5 ####[address] #### OZIEL [id number] ####[facility] [employer] [address] [place] [address] MCV (RBC) [Entitic vol] 71.5 fL Low 79.0-98.0 [facility] Comment on above: Performed By: #### C ORTL, QTF, DDI2, PT, CK3, ICA, FEIBC, LIPD2, TROPN, LACT3, MG3, FERR3, HA1C2, APTT, BNP3, PHOS3, PCAL, HEMDF, CRP2, LDH3, BMP3M, TSH5 ####[address] #### OZIEL [id number] ####[facility] [employer] [address] [place] [address] Monocytes (Bld) [#/Vol] 0.3 10*3/uL Normal 0.0-0.8 [facility] Comment on above: Performed By: #### C ORTL, QTF, DDI2, PT, CK3, ICA, FEIBC, LIPD2, TROPN, LACT3, MG3, FERR3, HA1C2, APTT, BNP3, PHOS3, PCAL, HEMDF, CRP2, LDH3, BMP3M, TSH5 ####[facility] [employer] [address] #### OZIEL [id number] ####[address] [place] [address] Monocytes/100 WBC (Bld) 9.9 % Normal 2.0-10.0 [facility] Comment on above: Performed By: #### C ORTL, QTF, DDI2, PT, CK3, ICA, FEIBC, LIPD2, TROPN, LACT3, MG3, FERR3, HA1C2, APTT, BNP3, PHOS3, PCAL, HEMDF, CRP2, LDH3, BMP3M, TSH5 ####[address] #### OZIEL [id number] ####[address] [place] [address] Platelet mean volume (Bld) [Entitic vol] 8.5 fL Normal 7.4-10.4 [facility] Comment on above: Performed By: #### C ORTL, QTF, DDI2, PT, CK3, ICA, FEIBC, LIPD2, TROPN, LACT3, MG3, FERR3, HA1C2, APTT, BNP3, PHOS3, PCAL, HEMDF, CRP2, LDH3, BMP3M, TSH5 ####[address] #### OZIEL [id number] ####[address] [place] [address] Platelets (Bld) [#/Vol] 140 10*3/uL Normal 140-440 [facility] Comment on above: Performed By: #### C ORTL, QTF, DDI2, PT, CK3, ICA, FEIBC, LIPD2, TROPN, LACT3, MG3, FERR3, HA1C2, APTT, BNP3, PHOS3, PCAL, HEMDF, CRP2, LDH3, BMP3M, TSH5 ####[address] #### OZIEL [id number] ####[address] [address] RBC (Bld) [#/Vol] 5.23 10*6/uL High 3.80-5.20 [facility] Comment on above: Performed By: #### C ORTL, QTF, DDI2, PT, CK3, ICA, FEIBC, LIPD2, TROPN, LACT3, MG3, FERR3, HA1C2, APTT, BNP3, PHOS3, PCAL, HEMDF, CRP2, LDH3, BMP3M, TSH5 ####[address] #### [id number] ####[place] [address] [place] [address] WBC (Bld) [#/Vol] 3.0 10*3/uL Low 3.6-10.7 [facility] Comment on above: Performed By: #### C ORTL, QTF, DDI2, PT, CK3, ICA, FEIBC, LIPD2, TROPN, LACT3, MG3, FERR3, HA1C2, APTT, BNP3, PHOS3, PCAL, HEMDF, CRP2, LDH3, BMP3M, TSH5 ####[address] #### OZIEL [id number] ####[address] [place] [address] Iron AND TIBCon 06-03-2021 Saturation 7 % Low 15-50 [facility] Comment on above: Performed By: #### C ORTL, QTF, DDI2, PT, CK3, ICA, FEIBC, LIPD2, TROPN, LACT3, MG3, FERR3, HA1C2, APTT, BNP3, PHOS3, PCAL, HEMDF, CRP2, LDH3, BMP3M, TSH5 ####[address] #### [id number] ####[address] [place] [address] Total Iron Binding Cap. 338 ug/dL Normal 261-497 [facility] Comment on above: Performed By: #### C ORTL, QTF, DDI2, PT, CK3, ICA, FEIBC, LIPD2, TROPN, LACT3, MG3, FERR3, HA1C2, APTT, BNP3, PHOS3, PCAL, HEMDF, CRP2, LDH3, BMP3M, TSH5 ####[address] #### OZIEL VD25H ####[facility] [place] [address] Iron, Total 24 ug/dL Low 37-170 [facility] Comment on above: Performed By: #### C ORTL, QTF, DDI2, PT, CK3, ICA, FEIBC, LIPD2, TROPN, LACT3, MG3, FERR3, HA1C2, APTT, BNP3, PHOS3, PCAL, HEMDF, CRP2, LDH3, BMP3M, TSH5 ####[address] #### OZIEL VD25H ####[address] [place] [address] LACTATE, BLOODOrdered By: Jarrett on 06-03-2021 Lactate [Moles/Vol] 0.9 mmol/L [facility] Lactate [Moles/Vol] 1.1 mmol/L [facility] LDHon 06-03-2021 LDH 601 U/L High 120-246 [facility] Comment on above: Performed By: #### C ORTL, QTF, DDI2, PT, CK3, ICA, FEIBC, LIPD2, TROPN, LACT3, MG3, FERR3, HA1C2, APTT, BNP3, PHOS3, PCAL, HEMDF, CRP2, LDH3, BMP3M, TSH5 ####[address] #### OZIEL VD25H ####[address] [place] [address] Lactic Acidon 06-03-2021 Lactate [Moles/Vol] 0.8 mmol/L Normal 0.7-2.0 [facility] Comment on above: Performed By: #### C ORTL, QTF, DDI2, PT, CK3, ICA, FEIBC, LIPD2, TROPN, LACT3, MG3, FERR3, HA1C2, APTT, BNP3, PHOS3, PCAL, HEMDF, CRP2, LDH3, BMP3M, TSH5 ####[address] #### OZIEL VD25H ####[address] [place] [address] Lipid Panelon 06-03-2021 Chol/HDL 5 Normal [facility] Comment on above: Result Comment: Ref Range:< 3 Low Risk for CHD3-6 Mod Risk for CHD> 6 High Risk for CHD Performed By: #### C ORTL, QTF, DDI2, PT, CK3, ICA, FEIBC, LIPD2, TROPN, LACT3, MG3, FERR3, HA1C2, APTT, BNP3, PHOS3, PCAL, HEMDF, CRP2, LDH3, BMP3M, TSH5 ####[address] #### OZIEL VD25H ####[address] [place] [address] Cholesterol in HDL [Mass/Vol] 26 mg/dL Low 40-60 [facility] Comment on above: Performed By: #### C ORTL, QTF, DDI2, PT, CK3, ICA, FEIBC, LIPD2, TROPN, LACT3, MG3, FERR3, HA1C2, APTT, BNP3, PHOS3, PCAL, HEMDF, CRP2, LDH3, BMP3M, TSH5 ####[address] #### CADET25H ####[address] [place] [address] Low Density Lipoprotein 80 mg/dL Normal <100 [facility] Comment on above: Performed By: #### C ORTL, QTF, DDI2, PT, CK3, ICA, FEIBC, LIPD2, TROPN, LACT3, MG3, FERR3, HA1C2, APTT, BNP3, PHOS3, PCAL, HEMDF, CRP2, LDH3, BMP3M, TSH5 ####[address] #### OZIEL VD25H ####[address] [place] [address] Triglyceride [Mass/Vol] 90 mg/dL Normal <150 [facility] Comment on above: Performed By: #### C ORTL, QTF, DDI2, PT, CK3, ICA, FEIBC, LIPD2, TROPN, LACT3, MG3, FERR3, HA1C2, APTT, BNP3, PHOS3, PCAL, HEMDF, CRP2, LDH3, BMP3M, TSH5 ####[address] #### OZIEL VD25H ####[address] [place] [id number] Cholesterol [Mass/Vol] 124 mg/dL Normal < 200 [facility] Comment on above: Performed By: #### C ORTL, QTF, DDI2, PT, CK3, ICA, FEIBC, LIPD2, TROPN, LACT3, MG3, FERR3, HA1C2, APTT, BNP3, PHOS3, PCAL, HEMDF, CRP2, LDH3, BMP3M, TSH5 ####[address] #### OZIEL VD25H ####[address] [place] [id number] MAGNESIUMOrdered By: Flash De La Rosa on 06-03-2021 Magnesium [Mass/Vol] 2.1 mg/dL [facility] Magnesiumon 06-03-2021 Magnesium [Mass/Vol] 2.2 mg/dL Normal 1.6-2.3 [facility] Comment on above: Performed By: #### C ORTL, QTF, DDI2, PT, CK3, ICA, FEIBC, LIPD2, TROPN, LACT3, MG3, FERR3, HA1C2, APTT, BNP3, PHOS3, PCAL, HEMDF, CRP2, LDH3, BMP3M, TSH5 ####[address] #### OZIEL VD25H ####[address] [place] [address] NT pro BNPon 06-03-2021 Natriuretic peptide B (Bld) [Mass/Vol] 1248 pg/mL High 0-125 [facility] Comment on above: Performed By: #### C ORTL, QTF, DDI2, PT, CK3, ICA, FEIBC, LIPD2, TROPN, LACT3, MG3, FERR3, HA1C2, APTT, BNP3, PHOS3, PCAL, HEMDF, CRP2, LDH3, BMP3M, TSH5 ####[address] [address]#### OZIEL VD25H ####[address] [place] [address] No Panel InformationOrdered By: Flash De La Rosa on 06-03-2021 Interpretation and review of laboratory results Abnormal [facility] PROTIME-INROrdered By: Elizabeth De La Rosa on 06-03-2021 INR Coag (PPP) [Relative time] 1.01 {INR} [facility] Comment on above: 2.0-3.0 THERAPEUTIC RANGE 2.5-3.5 MECHANICAL VALVE RANGE PT Coag (PPP) [Time] 13.5 s [facility] Phosphoruson 06-03-2021 Phosphate [Mass/Vol] 3.3 mg/dL Normal 2.5-4.5 [facility] Comment on above: Performed By: #### C ORTL, QTF, DDI2, PT, CK3, ICA, FEIBC, LIPD2, TROPN, LACT3, MG3, FERR3, HA1C2, APTT, BNP3, PHOS3, PCAL, HEMDF, CRP2, LDH3, BMP3M, TSH5 ####[place] [address] [place] [address]#### OZIEL VD25H ####[address] [place] [address] Procalcitoninon 06-03-2021 Procalcitonin 0.07 ng/mL Normal 0.00-0.09 [facility] Comment on above: Performed By: #### C ORTL, QTF, DDI2, PT, CK3, ICA, FEIBC, LIPD2, TROPN, LACT3, MG3, FERR3, HA1C2, APTT, BNP3, PHOS3, PCAL, HEMDF, CRP2, LDH3, BMP3M, TSH5 ####[address] [address]#### OZIEL, VD25H ####[place] [address] Interpretation See Below Normal [facility] Comment on above: Result Comment: PCT <0.50 = Low risk of severe sepsis and/or septic shock.PCT >2.00 = High risk of severe sepsis and/or septic shock. Performed By: #### C ORTL, QTF, DDI2, PT, CK3, ICA, FEIBC, LIPD2, TROPN, LACT3, MG3, FERR3, HA1C2, APTT, BNP3, PHOS3, PCAL, HEMDF, CRP2, LDH3, BMP3M, TSH5 ####[address] [address]#### OZIEL, VD25H ####[place] [address] Prothrombin Timeon 1 INR 1.0 Normal 0.9-1.1 [facility] Comment on above: Result Comment: Nadeem [...] PHOS3, PCAL, HEMDF, CRP2, LDH3, BMP3M, TSH5 ####[address] #### CADET25H ####[facility] [place] [address] PT Coag (PPP) [Time] 10.8 s Normal 9.0-12.0 [facility] Comment on above: Result Comment: . Performed By: #### C ORTL, QTF, DDI2, PT, CK3, ICA, FEIBC, LIPD2, TROPN, LACT3, MG3, FERR3, HA1C2, APTT, BNP3, PHOS3, PCAL, HEMDF, CRP2, LDH3, BMP3M, TSH5 ####[address] #### CADET25H ####[address] [place] [address] SEDIMENTATION RATE, AUTOMATE DOrdered By: Flash De La Rosa on 06-03-2021 ESR (Bld) [Velocity] 51 mm/h [facility] Interpretation and review of laboratory results Abnormal [facility] Staph Aureus Complete Nasalo n 06-03-2021 Staph Aureus Complete Nasal Normal [facility] Comment on above: Performed By: #### S APCR ####[address] Thyroid Stim. Hormoneon 07- Thyroid Stim. Hormone 0.869 u[IU]/mL Normal 0.465-4.68 0 [facility] Comment on above: Performed By: #### C ORTL, QTF, DDI2, PT, CK3, ICA, FEIBC, LIPD2, TROPN, LACT3, MG3, FERR3, HA1C2, APTT, BNP3, PHOS3, PCAL, HEMDF, CRP2, LDH3, BMP3M, TSH5 ####[address] #### CADET25H ####[address] [place] [address] Troponin Ion 06-03-2021 Troponin I.cardiac [Mass/Vol] ng/mL Normal 0.000-0.034 [facility] Comment on above: Result Comment: . Performed By: #### T ROPN ####[id number] [place] [address] Troponin I.cardiac [Mass/Vol] ng/mL Normal 0.000-0.034 [facility] Comment on above: Result Comment: . Performed By: #### C ORTL, QTF, DDI2, PT, CK3, ICA, FEIBC, LIPD2, TROPN, LACT3, MG3, FERR3, HA1C2, APTT, BNP3, PHOS3, PCAL, HEMDF, CRP2, LDH3, BMP3M, TSH5 ####[id number] [place] [address]#### TRFN, VD25H ####[id number] [place] [address] B-TYPE NATRIURETIC PEPTIDE ( BRAIN)Ordered By: Flash De La Rosa on 06-02-2021 Natriuretic peptide B (Bld) [Mass/Vol] 123 pg/mL [facility] Comment on above: Testing performed at [address] B12 & FOLATEOrdered By: Jb De La Rosa on 06-02-2021 Cobalamin (Vitamin B12) [Mass/Vol] 537 pg/mL 180 - 914 PG/ML [facility] Folate [Mass/Vol] 16.0 ng/mL >5.9 NG/ML [facility] BLOOD GAS, ARTERIALOrdered B y: Flash De La Rosa on 06-02-2021 Arterial patency Wrist artery --pre arterial puncture Positive [facility] Base excess Calc (BldV) [Moles/Vol] 0.9 mmol/L [facility] Carbon dioxide/Gas.total.at end expiration in Exhaled gas 22.1 Vol% [facility] Carboxyhemoglobin (Bld) [Mass fraction] 1.8 % [facility] CO2 (Bld) [Partial pressure] 35.8 mm[Hg] [facility] Diagnosis Narrative COVID [facility] HCO3 (Bld) [Moles/Vol] 24.3 mmol/L [facility] Hemoglobin (Bld) [Mass/Vol] 10.8 g/dL [facility] Interpretation and review of laboratory results Abnormal [facility] Methemoglobin (BldC) [Mass fraction] 0.0 % [facility] NOTE BIPAP 14/8 RATE 14 [facility] Oxygen (Bld) [Partial pressure] 15L [facility] Oxygen (Bld) [Partial pressure] 79.0 mm[Hg] Low [facility] Oxyhemoglobin (Bld) [Mass fraction] 94.8 % [facility] pH (Bld) 7.450 [pH] [facility] Specimen site Narrative LEFT RADIAL [facility] C REACTIVE PROTEINOrdered By : Nawaf Dalton on 06-02-2021 CRP [Mass/Vol] 143.1 mg/L High 0 - 10.0 MG/L [facility] CBC, EDIF, PLATELETOrdered B y: Nawaf Dalton on 06-02-2021 Differential cell count method Nom (Bld) MANUAL DIFF % [facility] Erythrocyte distribution width (RBC) [Ratio] 20.4 % High 11.5 - 14.5 % [facility] Hematocrit (Bld) [Volume fraction] 34.4 % Low 36.0 - 48.0 % [facility] Hemoglobin (Bld) [Mass/Vol] 11.1 g/dL Low [facility] Interpretation and review of laboratory results Abnormal [facility] Lymphocytes/100 WBC (Bld) 35 % 20.0 - 55.0 % [facility] MCH (RBC) [Entitic mass] 22.5 pg Low 26.0 - 35.0 PG [facility] MCHC (RBC) [Mass/Vol] 32.1 g/dL [facility] MCV (RBC) [Entitic vol] 69.9 fL Low [facility] Monocytes/100 WBC (Bld) 3 % 0.0 - 10.0 % [facility] Morphology Terry (Bld) [Interp] 2+ [facility] Comment on above: MICROCYTOSIS 1+ ANISOCYTE Neutrophils/100 WBC (Bld) 62 % 37.0 - 75.0 % [facility] Platelet mean volume (Bld) [Entitic vol] 8.5 fL [facility] Platelet morphology finding Nom (Bld) DECREASED [facility] Platelets (Bld) [#/Vol] 125 10*3/uL Low 130.0 - 400.0 10*3/uL [facility] RBC (Bld) [#/Vol] 4.93 10*6/uL 4.0 - 5.4 10*6/uL [facility] WBC (Bld) [#/Vol] 2.3 10*3/uL Low 3.6 - 11.0 10*3/uL [facility] COMPREHENSIVE METABOLIC PANE LOrdered By: Nawaf Dalton on 06-02-2021 Albumin [Mass/Vol] 3.1 G/dl Low 3.5 - 5.0 G/dl [facility] Albumin/Globulin [Mass ratio] 0.7 {ratio} Low [facility] ALP [Catalytic activity/Vol] 79 U/L [facility] ALT [Catalytic activity/Vol] 34 U/L [facility] AST [Catalytic activity/Vol] 58 U/L High [facility] Bilirubin [Mass/Vol] 0.5 mg/dL [facility] Calcium [Mass/Vol] 8.2 mg/dL Low [facility] Chloride [Moles/Vol] 98 mmol/L [facility] CO2 [Moles/Vol] 25 mmol/L [facility] Creatinine [Mass/Vol] 0.95 mg/dL [facility] GFR COMMENT Average GFR for 50-5 9 years old = 93. [facility] Comment on above: Chronic Kidney disea se, GFR = <60. Kidney failure, GFR = <15. The GFR estimate is not adjusted for extreme body surface area or acute process, nor has it been validated for women or ethnic groups other than and . GFR/1.73 sq M.predicted among blacks MDRD (S/P/Bld) [Vol rate/Area] mL/min/{1.73_m2} ml/min/1.73s q.m [facility] GFR/1.73 sq M.predicted among non-blacks MDRD (S/P/Bld) [Vol rate/Area] mL/min/{1.73_m2} ml/min/1.73s q.m [facility] Glucose post fast [Mass/Vol] 109 mg/dL High [facility] Comment on above: NORMAL <100 mg/dL PREDIABETES 101-126 mg/dL DIABETES 126 mg/dL or higher Potassium [Moles/Vol] 4.2 mmol/L [facility] Protein [Mass/Vol] 7.4 g/dL [facility] Sodium [Moles/Vol] 133 mmol/L Low [facility] Urea nitrogen [Mass/Vol] 13 mg/dL [facility] CT PE STUDYOrdered By: Nawaf Dalton on 06-02-2021 IMPRESSION: 1. Poor contrast opacification of the pulmonary arteries is essentially nondiagnostic for pulmonary embolism. Enlargement of the main pulmonary artery suggests pulmonary arterial hypertension. 2. Cardiomegaly. 3. Extensive scattered airspace opacities throughout both lungs compatible with multifocal viral pneumonia. [facility] EXAMINATION: CT PE S TUDY HISTORY: Cough [...] AI TECHNOLOGY: This study was processed using [employer] CT Technology. No prior found. Current Lung [...] the visualized portions of the upper abdomen. [employer] User, Interfaces - 06/02/2021 1:25 PM EDT [...] AI TECHNOLOGY: This study was processed using [employer] CT Technology. No prior found. Current Lung [...] both lungs compatible with multifocal viral pneumonia. [facility] FERRITINOrdered By: Flash london on 06-02-2021 Ferritin [Mass/Vol] 139 ng/mL [facility] Comment on above: PREMENOPAUSAL FEMALE S 6.9-282.5 POSTMENOPAUSAL FEMALES 14.0-233.1 HEMOGLOBIN & HEMATOCRITOrder ed By: Flash De La Rosa on 06-02-2021 Hematocrit (Bld) [Volume fraction] 34.3 % Low 36.0 - 48.0 % [facility] Hemoglobin (Bld) [Mass/Vol] 11.0 g/dL Low [facility] Interpretation and review of laboratory results Abnormal [facility] Hematocrit (Bld) [Volume fraction] 34.4 % Low 36.0 - 48.0 % [facility] Hemoglobin (Bld) [Mass/Vol] 11.1 g/dL Low [facility] Interpretation and review of laboratory results Abnormal [facility] HEPATIC FUNCTION PANELOrdere d By: Guilherme Naranjo on 06-02-2021 Albumin [Mass/Vol] 2.9 g/dL Low [facility] ALP [Catalytic activity/Vol] 79 U/L [facility] ALT [Catalytic activity/Vol] 32 U/L [facility] AST [Catalytic activity/Vol] 58 U/L High [facility] Bilirubin [Mass/Vol] 0.5 mg/dL [facility] Bilirubin.direct [Mass/Vol] 0.1 mg/dL [facility] Interpretation and review of laboratory results Abnormal [facility] Protein [Mass/Vol] 6.6 g/dL [facility] IRON/IRON BINDING/TRANSFERRI NOrdered By: Flash De La Rosa on 06-02-2021 Interpretation and review of laboratory results Abnormal [facility] Iron [Mass/Vol] 12 ug/dL Low [facility] Iron binding capacity [Mass/Vol] 378 [facility] Iron saturation [Mass fraction] 3 % [facility] LACTATE, BLOODOrdered By: Jarrett on 06-02-2021 Lactate [Moles/Vol] 0.8 mmol/L [facility] URINARY AGOrdered By: Flash De La Rosa on 06-02-2021 L. pneumophila 1 Ag IA Ql (U) Negative NEGATIVE [facility] NOVEL CORONAVIRUS LAB 1 - NA SOPHARYNGEALOrdered By: Nawaf Dalton on 06-02-2021 Interpretation and review of laboratory results Abnormal [facility] NARRATIVE -1 This test was perfor med using isothermal CHANTELL and has been approved as Emergency Use Authorization (EUA) for the qualitative detection [id number] nucleic acid. [facility] SARS-CoV-2 (COVID-19) RNA CHANTELL+probe Ql (Unsp spec) Detected Abnormal NOT DETECTED [facility] Comment on above: ENHANCED CONTACT, AN D DROPLET ISOLATION IS REQUIRED FOR INPATIENTS WITH SARS-CoV-2. Result called to read back by: MORIS MARES 06/02/2021 @ 11:11 by [facility] No Panel InformationOrdered By: Flash De La Rosa on 06-02-[address] [facility] No Panel InformationOrdered By: Nawaf Dalton on 06-02-2021 [facility] Interpretation and review of laboratory results Abnormal [facility] PROCEDURE - CENTRAL LINE WIT H OR WITHOUT PACOrdered By: Al Stack on 06-02-2021 TAI Hawkins 06/02/2021 4:55 PM INDICATION: Vascular Access / Critically Ill / Limited access PROCEDURE PRODUCTION SERVICE MANAGER: Nathen VICENTE ATTENDING PHYSICIAN: In Attendance [...] Estimated blood loss is less than 10ml. [facility] RETICULOCYTESOrdered By: Nam De La Rosa on 06-02-2021 Reticulocytes/100 RBC (Bld) 0.57 % 0.50 - 2.30 % [employer] [facility] [employer] SCREEN: MRSA ONLY, NARES (IS OLATION SCREEN)Ordered By: Flash De La Rosa on 06-02-2021 Interpretation and review of laboratory results Abnormal [facility] MRSA isol Org specific cx Ql (Nose) Not detected NOT DETECTED [facility] STAPHYOCOCCUS AUREUS BY PCR Detected Abnormal NOT DETECTED [facility] SEDIMENTATION RATE, AUTOMATE DOrdered By: Nawaf Dalton on 06-02-2021 ESR (Bld) [Velocity] 121 mm/h [facility] Interpretation and review of laboratory results Abnormal [facility] STREP PNEUMONIAE ANTIGEN, UR INEOrdered By: Flash De La Rosa on 06-02-2021 S. pneumoniae Ag Ql (U) Negative NEGATIVE [facility] TROPONIN I, HIGH SENSITIVITY Ordered By: Nawaf Dalton on 06-02-2021 TROPONIN I, HIGH SENSITIVITY 12 pg/mL 0 - 12 pg/mL [facility] Comment on above: Indeterminant: >12 to 100 pg/mL female >20 to 100 pg/mL male Indicative of myocardial injury. Serial sampling is recommended, a change of greater than or equal to 20 pg/mL is indicative of acute coronary syndrome. [facility] URINALYSIS, MACROOrdered By: Nawaf Dalton on 06-02-2021 Bilirubin Ql (U) Negative NEGATIVE [facility] Clarity (U) CLEAR CLEAR [facility] Color (U) YELLOW YELLOW [facility] Glucose Test strip (U) [Mass/Vol] Negative NEGATIVE mg/dl [facility] Hemoglobin Ql (U) TRACE-LYSED Abnormal NEGATIVE [facility] Interpretation and review of laboratory results Abnormal [facility] Ketones (U) [Mass/Vol] Negative NEGAT EMMY mg/dl [facility] Leukocyte esterase Test strip Ql (U) Negative NEGATIVE [facility] Nitrite Ql (U) Negative NEGATIVE [facility] pH (U) 5.5 [pH] [facility] Protein Ql (U) 100 mg/dl Abnormal NEGATIVE [facility] Specific gravity (U) [Rel density] 1.020 [facility] Urobilinogen (U) [Mass/Vol] 0.2 mg/dL [facility] URINE MICROSCOPICOrdered By: Nawaf Dalton on 06-02-2021 Bacteria LM.HPF (Urine sed) [#/Area] Negative NEGATIVE [facility] Casts LM.LPF (Urine sed) [#/Area] NONE NONE /LPF [facility] Crystals LM Nom (Urine sed) NONE NONE [facility] Epithelial cells LM Ql (Urine sed) 1 TO 5 /HPF [facility] Mucus Ql (Urine sed) Negative NEGATIVE [facility] RBC LM.HPF (Urine sed) [#/Area] Negative NEGATIVE /HPF [facility] Urine sediment comments LM Terry (Urine sed) CULTURE CRITERIA NOT MET, NO CULTURE PERFORMED. [facility] WBC LM.HPF (Urine sed) [#/Area] Negative NEGATIVE /HPF [facility] VITAMIN D (25-HYDROXY,TOTAL) Ordered By: Flash De La Rosa on 06-02-2021 25-hydroxyvitamin D [Mass/Vol] 27.7 Low >30 NG/ML [facility] Comment on above: DEFICIENT <20 NG/ML INSUFFICIENT 20-<30 NG/ML SUFFICIENT 30-100 NG/ML POTENTIAL TOXICITY >100 NG/ML Interpretation and review of laboratory results Abnormal [facility] XR CHEST AP PORTABLEOrdered By: Flash De La Rosa on 06-02-2021 IMPRESSION: 1. Moder ate cardiomegaly. 2. Moderate scattered patchy infiltrates noted bilaterally which may be due to pulmonary edema and/or multifocal pneumonia roughly similar to the prior study. [facility] EXAM: XR CHEST AP PORTABLE HISTORY: [...] similar roughly similar to the prior study. [facility] User, Interfaces - 06/02/2021 5:15 PM [...] pneumonia roughly similar to the prior study. [facility] CHEST 2 VIEWSon 05-17-2021 CHEST [address] [address] Patient: JESUSITA ENGLAND Phone#: : 1970 Age: 51 Gender: F Pt. Type: Out Account: [id number] Location: Ordering: ALONDRA ROSENBERG Exam Date: 05/17/2021/16:21 Family Phys: Charge Code: [id number] Physician: Mccurtain Order #: [id number] DLP Dose#: PROCEDURE: X-RAY CHEST 2 VIEWS [...] Sharma MD on 05/17/2021 at 16:47 Normal [facility] FOOT COMPLETE LTon FOOT COMPLETE LT [address] [address] Patient: JESUSTIA ENGLAND Phone#: : 1970 Age: 51 Gender: F Pt. Type: Out Account: [id number] Location: Ordering: ALONDRA ROSENBERG Exam Date: 05/17/2021/16:21 Family Phys: Charge Code: [id number] Physician: Mccurtain Order #: [id number] DLP Dose#: PROCEDURE: X-RAY FOOT LT COMPLETE [...] Sharma MD on 05/17/2021 at 16:49 Normal [facility] FOOT COMPLETE RTon FOOT COMPLETE RT [place] [address] Patient: JESUSITA ENGLAND Phone#: : 1970 Age: 51 Gender: F Pt. Type: Out Account: [id number] Location: Ordering: [facility] Exam Date: 05/17/2021/16:24 Family Phys: Charge Code: [id number] Physician: Mccurtain Order #: [id number] DLP Dose#: PROCEDURE: X-RAY FOOT RT COMPLETE [...] Sharma MD on 05/17/2021 at 16:50 Normal [facility] Laboratory - Chemistry and C hemistry - challengeon 05-17-2021 Ferritin [Mass/Vol] 5 ng/mL Abnormal 16 - 232 ng/mL [facility] [employer] [facility], [facility]. Laboratory - Hematology and Cell countson 05-17-2021 Basophils (Bld) [#/Vol] 0.022 10*3/uL Normal 0 - 200 {cells/uL} [facility], [employer] Basophils/100 WBC (Bld) 0.3 % Normal [facility] Eosinophils (Bld) [#/Vol] 0.173 10*3/uL Normal 15 - 500 {cells/uL} [facility].; [facility], [facility] Eosinophils/100 WBC (Bld) 2.4 % Normal [facility], [facility] Erythrocyte distribution width (RBC) [Ratio] 16.8 % Abnormal 11.0 - 15.0 % [facility].; [facility], [facility] Hematocrit (Bld) [Volume fraction] 34.7 % Abnormal 35.0 - 45.0 % [facility].; [facility], [facility] Hemoglobin (Bld) [Mass/Vol] 10.6 g/dL Abnormal 11.7 - 15.5 g/dL [facility].; [facility], [facility] Lymphocytes (Bld) [#/Vol] 1.188 10*3/uL Normal 850 - 3900 {cells/uL} [facility].; [facility], [facility] Lymphocytes/100 WBC (Bld) 16.5 % Normal [facility]; [facility], [facility]. MCH (RBC) [Entitic mass] 22.1 pg Abnormal 27.0 - 33.[address] [facility].; [facility], [facility]. MCHC (RBC) [Mass/Vol] 30.5 g/dL Abnormal 32.0 - 36.0 g/dL [facility].; [facility], [facility]. MCV (RBC) [Entitic vol] 72.3 fL Abnormal 80.0 - 100.[address] [facility].; [facility], [facility]. Monocytes (Bld) [#/Vol] 0.619 10*3/uL Normal 200 - 950 {cells/uL} [facility].; [facility], [facility]. Monocytes/100 WBC (Bld) 8.6 % Normal [facility].; [facility], [facility]. Neutrophils (Bld) [#/Vol] 5.198 10*3/uL Normal 1500 - 7800 {cells/uL} [facility] [employer]. Neutrophils/100 WBC (Bld) 72.2 % Normal [employer]. Platelet mean volume (Bld) [Entitic vol] 9.7 fL Normal 7.5 - 12.5 fL [employer]. Platelets (Bld) [#/Vol] 249 10*3/uL Normal 140 - 400 [employer] RBC (Bld) [#/Vol] 4.80 10*6/uL Normal 3.80 - 5.1 0 {Million/uL} [employer]. WBC (Bld) [#/Vol] 7.2 10*3/uL Normal 3.8 - 10.8 [employer]. No Panel Informationon 05-17 IRON, TOTAL 24 ug/dL Abnormal 45 - 160 ug/dL [employer]; [employer]. ECHOCARDIOGRAMOrdered By: Me shilo Rosenberg on 04-05-2021 APPR ALFREDO REPORT Other Information [...] cm AV DI 0.63 (>0.25) AoV Peak Joaquín. 1.45 (0.5-1.3 m/s) AV Vmean 1.03 m/s AO Peak GR. 8.41 mmHg AO Mean GR. 4.67 (<5 mmHg) AO VTI 32.4 (18-25 cm) AMENA (VTI) 2.41 (2.5-4.5 cm2) Mitral Valve MV E Max Joaquín. 1.4 (0.4-1.3 m/s) MV A Velocity 0.88 (0.4-1.3 m/s) E/A Ratio 1.54 MV PHT 68.27 ms MVA PHT 3.22 cm2 MV Dec [place] 970.89 cm/s2 MV Decel. Time 139.71 (160-240 ms) Pulmonary Valve PV Peak Velocity 0.8 (0.5-1.5 m/s) PV maxPG 2.8 mmHg PV Vmax 0.8 m/s Tricuspid Valve TR P. Velocity 2.62 m/s RAP Estimate 3 mmHg RVSP 30.43 mmHg TR maxPG 27.43 mmHg [employer] User, Interfaces - 04/05/2021 12:17 PM EDT [...] Aortic Root 3.40 cm F: 2.7 - 3.0VGYQ50 mL Aortic Root Index1.2 cm/m2LV Zpwqkj267.35 mL F: 46 - 106 Ascending Aorta 3.87 cm F: 2.3 - 3.1LV Volume Index47.76 mL/m2 F: 29 - 61 Ascending Aorta Index: 1.4 cm/m2LA Ttvqlg51.6 mL Left Atrium 4.80 cm F: 2.7 [...] m/s)LVOT VTI20.52 cm AV DI0.63 (>0.25)AoV Peak Joaquín.1.45 (0.5-1.3 m/s) AV Vmean 1.03 m/Brian Peak GR.8.41 mmHg AO Mean GR.4.67 (<5 mmHg)AO VTI32.4 (18-25 cm) AMENA (VTI)2.41 (2.5-4.5 cm2) Mitral Valve MV E Max Joaquín.1.4 (0.4-1.3 m/s)MV A Velocity0.88 (0.4-1.3 m/s) E/A Ratio1.54MV PHT68.27 ms MVA PHT3.22 cm2MV Dec [place] 970.89 cm/s2 MV Decel. Fclq601.71 (160-240 ms) Pulmonary Valve PV Peak Velocity0.8 (0.5-1.5 m/s)PV maxPG2.8 mmHg PV Vmax0.8 m/s Tricuspid Valve TR P. Velocity2.62 m/sRAP Estimate3 mmHg RVSP30.43 mmHgTR maxPG 27.43 mmHg [facility] Laboratory - Chemistry and C hemistry - challengeon 03-21-2021 Calcium [Mass/Vol] 8.8 mg/dL Normal 8.4 - 10. 6 mg/dL [facility].; [place] [employer], [facility]. Chloride [Moles/Vol] 100 mmol/L Normal 98 - 11 0 mmol/L [facility].; [place] [employer], [facility]. Cholesterol [Mass/Vol] 148 mg/dL Normal 0 - 2 00 mg/dL [facility].; [employer], [facility]. Cholesterol in HDL [Mass/Vol] 46 mg/dL Normal 40 - 60 mg/dL [facility].; [employer], [employer]. Cholesterol in LDL [Mass/Vol] 90 mg/dL Normal 50.0 - 130.0 mg/dL [facility].; [place] [employer], [employer]. Cholesterol in VLDL [Mass/Vol] 12 mg/dL Normal [place] [employer], [facility].; [employer], [employer]. Cholesterol.total/Chol esterol in HDL [Mass ratio] 3.22 {ratio} Normal 0 - 5.0 [facility].; [employer], [employer]. CO2 [Moles/Vol] 27 {kenya/L} Normal 22.0 - 32.0 {kenya/L} [place] [employer] [facility], [employer].; [employer] Creatinine [Mass/Vol] 0.66 mg/dL Normal 0.5 - 1.2 mg/dL [facility].; [employer], [employer]. Glucose [Mass/Vol] 91 mg/dL Normal 60 - 100 mg/dL [facility].; [employer], [employer]. Potassium [Moles/Vol] 4.0 mmol/L Normal 3.5 - 5.0 mmol/L [facility].; [facility]. Sodium [Moles/Vol] 138 mmol/L Normal 136 - 145 mmol/L [facility].; [place] [employer] [facility], [facility]. Triglyceride [Mass/Vol] 59 mg/dL Normal 40 - 150 mg/dL [facility].; [facility] Urea nitrogen [Mass/Vol] 14 mg/dL Normal 8 - 22 mg/dL [facility].; [facility]. Urea nitrogen/Creatinine [Mass ratio] - Normal 0 - 30 [facility]; [facility] No Panel Informationon 03-21 ELECTROLYTE BALANCE - Normal [facility]; [place] [employer] [facility], [facility] GFR >60 Normal [facility].; [facility] GFR2 >60 Normal [facility].; [place] [employer], [facility]. Laboratory - Chemistry and C hemistry - challengeon 03-14-2021 Albumin [Mass/Vol] 3.9 g/dL Normal 3.6 - 5.1 g/dL [facility].; [place] [employer] [facility], [facility]. Albumin/Globulin [Mass ratio] 1.3 {ratio} Normal 1.0 - 2.5 [facility].; [place] [employer] [facility], [facility]. ALP [Catalytic activity/Vol] 106 U/L Normal 37 - 153 U/L [facility].; [place] [employer] [facility], [facility]. ALT [Catalytic activity/Vol] 15 U/L Normal 6 - 29 U/L [facility].; [place] [employer] [facility], [facility]. AST [Catalytic activity/Vol] 15 U/L Normal 10 - 35 U/L [facility].; [place] [employer] [facility], [facility]. Bilirubin [Mass/Vol] 0.3 mg/dL Normal 0.2 - 1 .2 mg/dL [facility].; [place] [employer] [facility], [facility]. Calcium [Mass/Vol] 8.9 mg/dL Normal 8.6 - 10. 4 mg/dL [facility].; [place] [employer] [facility] [facility]. Chloride [Moles/Vol] 103 mmol/L Normal 98 - 11 0 mmol/L [facility].; [facility]. CO2 [Moles/Vol] 28 mmol/L Normal 20 - 32 mmol/L [facility].; [facility]. Creatinine [Mass/Vol] 0.72 mg/dL Normal 0.50 - 1.05 mg/dL [facility].; [facility] GFR/1.73 sq M.predicted among blacks MDRD (S/P/Bld) [Vol rate/Area] 111 mL/min/{1.73_m2} Normal [facility].; [facility] Glucose [Mass/Vol] 108 mg/dL Abnormal 65 - 99 mg/dL [facility].; [place] [employer] [facility], [facility]. Natriuretic peptide B (Bld) [Mass/Vol] 45 pg/mL Normal [facility].; [facility] Potassium [Moles/Vol] 4.3 mmol/L Normal 3.5 - 5.3 mmol/L [facility].; [place] [employer] [facility]. Protein [Mass/Vol] 7.0 g/dL Normal 6.1 - 8.1 g/dL [facility].; [place] [employer] [facility], [facility]. Sodium [Moles/Vol] 138 mmol/L Normal 135 - 146 mmol/L [facility].; [place] [employer] [facility]. TSH Qn 2.90 m[IU]/L Normal [facility].; [place] [employer] [facility] Urea nitrogen [Mass/Vol] 13 mg/dL Normal 7 - 25 mg/dL [facility].; [employer] [facility]. Laboratory - Hematology and Cell countson 03-14-2021 Basophils (Bld) [#/Vol] 0.03 10*3/uL Normal 0 - 200 {cells/uL} [facility].; [place] [employer] Basophils/100 WBC (Bld) 0.4 % Normal [facility].; [place] [employer], [employer] Eosinophils (Bld) [#/Vol] 0.644 10*3/uL Abnormal 15 - 500 {cells/uL} [facility].; [facility]. Eosinophils/100 WBC (Bld) 8.7 % Normal [facility].; [facility]. Erythrocyte distribution width (RBC) [Ratio] 16.9 % Abnormal 11.0 - 15.0 % [facility].; [place] [employer] [facility], [facility]. Hematocrit (Bld) [Volume fraction] 35.2 % Normal 35.0 - 45.0 % [facility].; [facility]. Hemoglobin (Bld) [Mass/Vol] 10.7 g/dL Abnormal 11.7 - 15.5 g/dL [facility].; [facility]. Lymphocytes (Bld) [#/Vol] 1.221 10*3/uL Normal 850 - 3900 {cells/uL} [facility].; [place] [employer], [facility]. Lymphocytes/100 WBC (Bld) 16.5 % Normal [facility].; [place] [employer] [facility], [facility]. MCH (RBC) [Entitic mass] 22.1 pg Abnormal 27.0 - 33.0 pg [facility].; [place] [employer] [facility], [facility]. MCHC (RBC) [Mass/Vol] 30.4 g/dL Abnormal 32.0 - 36.0 g/dL [facility].; [place] [employer] [facility], [facility]. MCV (RBC) [Entitic vol] 72.7 fL Abnormal 80.0 - 100.0 fL [facility].; [place] [employer] [facility], [facility]. Monocytes (Bld) [#/Vol] 0.511 10*3/uL Normal 200 - 950 {cells/uL} [facility].; [place] [employer], [facility]. Monocytes/100 WBC (Bld) 6.9 % Normal [facility].; [place] [employer] [facility], [facility]. Neutrophils (Bld) [#/Vol] 4.995 10*3/uL Normal 1500 - 7800 {cells/uL} [facility].; [place] [employer] Neutrophils/100 WBC (Bld) 67.5 % Normal [facility].; [place] [employer] [facility], [facility]. Platelet mean volume (Bld) [Entitic vol] 10.0 fL Normal 7.5 - 12.5 fL [facility]; [place] [employer] Platelets (Bld) [#/Vol] 258 10*3/uL Normal 140 - 400 [facility]; [place] [employer] RBC (Bld) [#/Vol] 4.84 10*6/uL Normal 3.80 - 5.1 0 {Million/uL} [place] [employer] [facility]; [place] [employer] WBC (Bld) [#/Vol] 7.4 10*3/uL Normal 3.8 - 10.8 [place] [employer]; [employer] No Panel Informationon 03-14 BUN/CREATININE RATIO NOT APPLICABLE Normal 6 - 22 [facility]; [place] [employer] eGFR NON-AFR. SOLOMON ISLANDER 96 Normal [facility]; [place] [employer] GLOBULIN 3.1 Normal 1.9 - 3.7 [place] [employer]; [employer] Basic Metabolic Panelon 07-0 Anion gap [Moles/Vol] 7 mmol/L [place], [place] Calcium [Mass/Vol] 8.5 mg/dL 8.4 - 10. 4 mg/dL [place] Chloride [Moles/Vol] 106 mmol/L 98 - 10 7 mmol/L [place] CO2 [Moles/Vol] 24 mmol/L 22 - 30 mmol/L [place] Creatinine [Mass/Vol] 0.67 mg/dL 0.52 - 1.25 mg/dL [place] EGFR IF NonAfrican Syrian >90.0 >60 mL/min [place] Comment on above: KDIGO guidelines pro [...] MDRD (S/P/Bld) [Vol rate/Area] mL/min/{1.73_m2} >60 mL/min [place] Glucose [Mass/Vol] 101 mg/dL High 70 - 100 mg/dL [place] Interpretation and review of laboratory results Abnormal [place] Potassium [Moles/Vol] 4.2 mmol/L 3.5 - 5.1 mmol/L [place] Sodium [Moles/Vol] 137 mmol/L 135 - 145 mmol/L [place] Urea nitrogen [Mass/Vol] 14 mg/dL 7 - 20 mg/dL [place] Test Performed by [address] [address] [place], [place] CT Abdomen Pelvis Wo [place] merly 06-01-2020 Patient Name: JESUSITA ENGLAND ---CT--- Exam Date/Time 06/01/2020 01:53:[address] Abdomen/Pelvis (No PO, No IV) Ordering Physician KIMBERLY SAVAGE RYAN Accession Number [id number] CPT4 Codes 25899 (CT Abdomen/Pelvis (No PO, No IV)) Reason [...] large body habitus. Report Dictated on Workstation: [email or web address] --- Final --- Dictated: 06/01/2020 2:10 am Dictating Physician: MD JONES JONATHAN R Signed Date and Time: 06/01/2020 2:14 am Signed by: MD JONES JONATHAN R Transcribed Date and Time: 06/01/2020 2:10 [place], [place] Marcio, [facility] Incoming Radiology Results From Pending Sale To [facility] - 06/01/2020 2:15 AM EDT Patient Name: EJSUSITA ENGLAND ---CT--- Exam Date/Time 06/01/2020 01:53:[address] Abdomen/Pelvis (No PO, No IV) Ordering Physician KIMBERLY SAVAGE RYAN Accession Number [id number] CPT4 Codes 54591 (CT Abdomen/Pelvis (No PO, No IV)) Reason [...] large body habitus. Report Dictated on Workstation: [id number] [email or web address] --- Final --- Dictated: 06/01/2020 2:10 am Dictating Physician: MD JONES JONATHAN R Signed Date and Time: 06/01/2020 2:14 am Signed by: MD JONES JONATHAN R Transcribed Date and Time: 06/01/2020 2:10 [place] Hemogram (CBC)on 06-01-2020 Erythrocyte distribution width (RBC) [Ratio] 19.4 % High 11.5 - 14.5 % [place] Hematocrit (Bld) [Volume fraction] 33.5 % Low 35 - 47 % [place] Hemoglobin (Bld) [Mass/Vol] 10.5 g/dL Low 11.7 - 16 g/dL [place] Interpretation and review of laboratory results Abnormal [place] MCH (RBC) [Entitic mass] 21.7 pg Low 26 - 34 pg [place] MCHC (RBC) [Mass/Vol] 31.4 % Low 32 - 36 % [place], [place] MCV (RBC) [Entitic vol] 69.1 fL Low 79 - 98 fL [place] Platelet mean volume (Bld) [Entitic vol] 8.5 fL 7.4 - 10.4 fL [place] Platelets (Bld) [#/Vol] 232 10*3/uL 140 - 440 10*3/uL [place] RBC (Bld) [#/Vol] 4.86 10*6/uL 3.8 - 5.2 10*6/uL [place] WBC (Bld) [#/Vol] 7.2 10*3/uL 3.6 - 10.7 10*3/uL [place] Test Performed by [facility] [place] [address] [place] Otheron 06-01-2020 Test Performed by [facility], [place] [address] [place], [place] , Urineon 0 Beta HCG ( test) Ql (U) Negative Negative [place], [place] Comment on above: is the mos t common reason for HCG in urine, although choriocarcinoma, hydatidiform mole, and certain nontropho- blastic malignancies also result in detectable urinary HCG levels. Sensitivity = 20mIU/mL. Urinalysison 06-01-2020 Appearance (U) Clear Clear [place], [place] Comment on above: . Bilirubin Urine Negative Negative mg/dL [place] Comment on above: . Color (U) Yellow Lt. Yellow NA [place] Comment on above: . Glucose, Ur Normal Normal (<70) mg/dL [place] Comment on above: . Ketones Ql (U) Negative Negative mg/dL [place] Comment on above: . LEUKOCYTES, UA Negative Negative [place]/uL [place] Comment on above: . Nitrite, Urine Negative Negative [place], [place] Comment on above: . Occult Blood,Urine Negative Negative mg/dL [place] Comment on above: . pH (U) 5.5 [pH] [place] Comment on above: . Protein (U) [Mass/Vol] Negative Negat emmy mg/dL [place] Comment on above: . Specific [place], Urine 1.023 [place] Comment on above: . Urobilinogen, Urine Normal Normal ( 0-1) mg/dL [place] Comment on above: . CHEST PA AND LATERALon 03-01 CHEST PA AND LATERAL Final ReportAccession No: [id number] Performed: Mar 01 2018 2:30PMExamination: CHEST [...] GRACIELA HUIZAR D.O.Trans: md : cc: Normal [place] Vital Signs Date Time Vital Sign Value Performing Clinician Facility 08-01-2025 10:59-0400 Body height 160.02 cm Alondra Rosenberg PA Work Phone: [phone] [place] [address] 08-01-2025 10:59-0400 Body mass index (BMI) [Ratio] 89.9 kg/m2 Alondra Rosenberg PA Work Phone: [phone] [place] [address] 08-01-2025 10:59-0400 Body weight 230.42 kg Alondra Rosenberg PA Work Phone: 4([phone] [place] [address] 08-01-2025 10:59-0400 Diastolic blood pressure 81 mm[Hg] Alondra Rosenberg PA Work Phone: 8(860)[phone] [place] [address] 08-01-2025 10:59-0400 Heart rate 75 /min Alondra Rosenberg PA Work Phone: [phone])[phone] [place] [address] 08-01-2025 10:59-0400 Respiratory rate 20 /min Alondra Rosenberg PA Work Phone: [facility] 08-01-2025 10:59-0400 SaO2% (BldA) [Mass fraction] 93 % Alondra Rosenberg PA Work Phone: 4(356)[phone] [place] [address] 08-01-2025 10:59-0400 Systolic blood pressure 131 mm[Hg] Alondra Rosenberg PA Work Phone: [facility] 06-23-2025 14:46-0400 Body height 160.66 cm Maxine Carlos Jha [facility] 06-23-2025 14:46-0400 Body mass index (BMI) [Ratio] 89.66 kg/m2 [facility] 06-23-2025 14:46-0400 Body surface area Derived from formula 2.89 m2 [facility].; [facility] 06-23-2025 14:46-0400 Body weight 231.43 kg [facility].; [facility] 06-23-2025 14:46-0400 Diastolic blood pressure 74 mm[Hg] [facility].; [facility]. Comment on above: Patient Position: Sitting; Cuff Location : Left Arm; Cuff Size: Standard 06-23-2025 14:46-0400 Heart rate 93 /min [facility].; [facility]. Comment on above: Pattern: Regular 06-23-2025 14:46-0400 Systolic blood pressure 107 mm[Hg] [facility].; [facility]. Comment on above: Patient Position: Sitting; Cuff Location : Left Arm; Cuff Size: Standard 06-16-2025 17:12-0400 Body temperature 97.9 [degF] Alondra Rosenberg PA Work Phone: [facility] 06-16-2025 17:12-0400 Diastolic blood pressure 99 mm[Hg] Alondra Rosenberg PA Work Phone: [facility] 06-16-2025 17:12-0400 Heart rate 84 /min Alondra Rosenberg PA Work Phone: [facility] 06-16-2025 17:12-0400 Respiratory rate 16 /min Alondra Rosenberg PA Work Phone: [facility] 06-16-2025 17:12-0400 SaO2% (BldA) [Mass fraction] 94 % Alondra Rosenberg PA Work Phone: [facility] 06-16-2025 17:12-0400 Systolic blood pressure 152 mm[Hg] Alondra Rosenberg PA Work Phone: [facility] 06-16-2025 05:14-0400 Body mass index (BMI) [Ratio] 87.4 kg/m2 Alondra Rosenberg PA Work Phone: [facility] 06-16-2025 05:14-0400 Body weight 223.8 kg Alondra Rosenberg PA Work Phone: [facility] 06-14-2025 17:18-0400 Inhaled oxygen flow rate 2 L/min Alondra Rosenberg PA Work Phone: [facility] 06-11-2025 12:29-0400 Body height 160.02 cm Alondra Rosenberg PA Work Phone: [facility] 06-11-2025 04:03-0400 Body temperature 100 [degF] Alondra Rosenberg PA Work Phone: [facility] 06-11-2025 04:03-0400 Diastolic blood pressure 79 mm[Hg] Alondra Rosenberg PA Work Phone: [facility] 06-11-2025 04:03-0400 Heart rate 100 /min Alondra Rosenberg PA Work Phone: [facility] 06-11-2025 04:03-0400 Inhaled oxygen flow rate 2 L/min Alondra Rosenberg PA Work Phone: [facility] 06-11-2025 04:03-0400 Respiratory rate 33 /min Alondra Rosenberg PA Work Phone: [facility] 06-11-2025 04:03-0400 SaO2% (BldA) [Mass fraction] 97 % Alondra Rosenberg PA Work Phone: [facility] 06-11-2025 04:03-0400 Systolic blood pressure 123 mm[Hg] Alondra Rosenberg PA Work Phone: [facility] 06-10-2025 23:46-0400 Body height 162.56 cm Alondra Rosenberg PA Work Phone: [facility] 06-10-2025 23:46-0400 Body mass index (BMI) [Ratio] 91.2 kg/m2 Alondra Rosenberg PA Work Phone: [facility] 06-10-2025 23:46-0400 Body weight 241.2 kg Alondra Rosenberg PA Work Phone: [facility] 06-09-2025 13:16-0400 Body height 160.66 cm Ceci Suarez [employer] [facility].; [facility]. 06-09-2025 13:16-0400 Body mass index (BMI) [Ratio] 92.62 kg/m2 Ceci Suarez [facility], [facility].; [facility]. 06-09-2025 13:16-0400 Body surface area Derived from formula 2.93 m2 Ceci Suarez [employer] [facility].; [facility]. 06-09-2025 13:16-0400 Body [facility].05 [facility], [facility].; [facility]. 06-09-2025 13:16-0400 Diastolic blood pressure 82 mm[Hg] Cecijose Suarez [facility], [facility].; [facility] Comment on above: Patient Position: Sitting; Cuff Location : Left Arm; Cuff Size: Standard 06-09-2025 13:16-0400 Heart rate 79 /min Ceci Suarez [employer] [facility].; [place] [employer] [facility] Comment on above: Pattern: Regular 06-09-2025 13:16-0400 Systolic blood pressure 129 mm[Hg] Ceci Suarez [facility], [facility].; [place] [employer] [facility], [facility]. Comment on above: Patient Position: Sitting; Cuff Location : Left Arm; Cuff Size: Standard 11-11-2024 08:20-0500 Body weight 232.65 kg Yamile Falls DO Work Phone: [facility] 11-11-2024 08:20-0500 Diastolic blood pressure 77 mm[Hg] Yamile Jo DO Work Phone: [facility] 11-11-2024 08:20-0500 Heart rate 93 /min Yamile Jo DO Work Phone: [facility] 11-11-2024 08:20-0500 Systolic blood pressure 130 mm[Hg] Yamile Jo DO Work Phone: [facility] 06-13-2024 15:06-0400 Body height 160.66 cm Alondra Liz Rosenberg PA-C Work Phone: [employer] 06-13-2024 15:06-0400 Body mass index (BMI) [Ratio] 88.4 kg/m2 Alondra Agusto Rosenberg PA-C Work Phone: [employer] [facility]. 06-13-2024 15:06-0400 Body surface area Derived from formula 2.87 m2 Alondra Agusto Rosenberg PA-C Work Phone: [employer] [facility]. 06-13-2024 15:06-0400 Body weight 228.16 kg Alondra Agusto Rosenberg PA-C Work Phone: [employer]. 06-13-2024 15:06-0400 Diastolic blood pressure 75 mm[Hg] Alondra Agusto Rosenberg PA-C Work Phone: [employer]. Comment on above: Patient Position: Sitting; Cuff Location : Left Arm; Cuff Size: Standard 06-13-2024 15:06-0400 Heart rate 76 /min Alondra Agusto Rosenberg PA-C Work Phone: [employer]; [employer]. Comment on above: Pattern: Regular 06-13-2024 15:06-0400 Systolic blood pressure 138 mm[Hg] Alondra J Rosenberg PA-C Work Phone: [employer]. Comment on above: Patient Position: Sitting; Cuff Location : Left Arm; Cuff Size: Standard 05-12-2024 [id number] Body height 165.1 cm Jazlyn Liu Frank [facility], [facility].; [facility] 05-12-2024 10:07-0400 Body mass index (BMI) [Ratio] 81.21 kg/m2 Jazlyn Liu Frank [facility].; [facility] 05-12-2024 10:[id number] Body surface area Derived from formula 2.89 m2 Jazlyn Liu Frank [facility].; [facility] 05-12-2024 10:07040 Body weight 221.36 kg Jazlyn Carllabach [facility].; [facility] 05-12-2024 10:07-0400 Diastolic blood pressure 78 mm[Hg] Jazlyn Liu Frank [facility].; [facility]. Comment on above: Patient Position: Sitting; Cuff Location : Right Arm; Cuff Size: Standard 05-12-2024 [id number]:[id number] Heart rate 76 /min Jazlyn Liu Frank [facility].; [facility]. Comment on above: Pattern: Regular 05-12-2024 10:07-0400 Systolic blood pressure 130 mm[Hg] Jazlyn Liu Frank [facility].; [facility]. Comment on above: Patient Position: Sitting; Cuff Location : Right Arm; Cuff Size: Standard 04-15-2024 10:34-0400 Body temperature 97.8 [degF] Alondra Rosenberg PA-C Work Phone: [facility].; [place] [employer] [facility]. 04-15-2024 [id number] Diastolic blood pressure 67 mm[Hg] Alondra Rosenberg PA-Jennifer Work Phone: [facility].; [place] [employer]. Comment on above: Patient Position: Sitting; Cuff Location : Left Arm; Cuff Size: Standard 04-15-2024 10:34-0400 Heart rate 70 /min Alondra Liz Rosenberg PA-C Work Phone: [facility]. Comment on above: Pattern: Regular 04-15-2024 10:34-0400 Inhaled oxygen concentration 21 % Alondra Agusto Rosenberg PA-C Work Phone: [facility]. Comment on above: Room air 04-15-2024 10:34-0400 SaO2% (BldA) [Mass fraction] 98 % Alondra Liz Rosenberg PA-C Work Phone: [facility] 04-15-2024 10:34-0400 Systolic blood pressure 115 mm[Hg] Alondra Agusto Rosenberg PA-C Work Phone: [facility].; [facility]. Comment on above: Patient Position: Sitting; Cuff Location : Left Arm; Cuff Size: Standard 04-08-2024 15:38-0400 Body temperature 98 [degF] PA Alondra Rosenberg PA Work Phone: [facility] 04-08-2024 15:38-0400 Diastolic blood pressure 78 mm[Hg] PA Alondra Rosenberg PA Work Phone: [facility] 04-08-2024 15:38-0400 Heart rate 97 /min PA Alondra Rosenberg PA Work Phone: [facility] 04-08-2024 15:38-0400 Respiratory rate 16 /min PA Alondra Rosenberg PA Work Phone: [facility] 04-08-2024 15:38-0400 SaO2% (BldA) [Mass fraction] 96 % PA Alondra Rosenberg PA Work Phone: [facility] 04-08-2024 15:38-0400 Systolic blood pressure 140 mm[Hg] PA Alondra Rosenberg PA Work Phone: [facility] 04-06-2024 14:06-0400 Body height 165.1 cm PA Alondraboston Rosenberg PA Work Phone: [facility] 04-06-2024 14:06-0400 Body weight 227.2 kg PA Alondraboston Rosenberg PA Work Phone: [facility] 04-04-2024 23:36-0400 Body mass index (BMI) [Ratio] 83.3 kg/m2 PA Alondraboston Rosenberg PA Work Phone: [facility] 04-04-2024 23:00-0400 Body temperature 98 [degF] [facility] 04-04-2024 23:00-0400 Diastolic blood pressure 75 mm[Hg] [facility] 04-04-2024 23:00-0400 Heart rate 89 /min [facility] 04-04-2024 23:00-0400 Respiratory rate 22 /min [facility] 04-04-2024 23:00-0400 SaO2% (BldA) [Mass fraction] 94 % [facility] 04-04-2024 23:00-0400 Systolic blood pressure 114 mm[Hg] [facility] 04-04-2024 19:07-0400 Body mass index (BMI) [Ratio] 87.2 kg/m2 [facility] 04-04-2024 19:07-0400 Body weight 230.5 kg [facility] 04-04-2024 19:06-0400 Body height 162.56 cm [facility] 04-01-2024 10:51-0400 Body height 165.1 cm Ceci Suarez LPN [facility]. 04-01-2024 10:51-0400 Body mass index (BMI) [Ratio] 84.04 kg/m2 Ceci Suarez LPN [facility] 04-01-2024 10:51-0400 Body surface area Derived from formula 2.93 m2 Ceci Suarez LPN [facility]. 04-01-2024 10:51-0400 Body weight 229.07 kg Ceci Suarez LPN [facility].; [facility]. 04-01-2024 10:51-0400 Diastolic blood pressure 79 mm[Hg] [facility].; [facility]. Comment on above: Patient Position: Sitting; Cuff Location : Left Arm; Cuff Size: Standard 04-01-2024 10:51-0400 Heart rate 73 /min [facility]. Comment on above: Pattern: Regular 04-01-2024 10:51-0400 Inhaled oxygen concentration 21 % [facility]. Comment on above: Room air 04-01-2024 10:51-0400 SaO2% (BldA) [Mass fraction] 95 % [facility].; [facility]. 04-01-2024 10:51-0400 Systolic blood pressure 131 mm[Hg] Ceci Suarez [facility].; [facility]. Comment on above: Patient Position: Sitting; Cuff Location : Left Arm; Cuff Size: Standard 09-04-2023 10:52-0400 Body height 162.6 cm Helder Tavera MD Work Phone: [facility] [employer] 09-04-2023 10:52-0400 Body mass index (BMI) [Ratio] 80.16 kg/m2 Helder Tavera MD Work Phone: [facility] [employer] 09-04-2023 10:52-0400 Body temperature 97 [degF] Helder Tavera MD Work Phone: [facility] [employer] 09-04-2023 10:52-0400 Body weight 211.83 kg Helder Tavera MD Work Phone: [facility] [employer] 09-04-2023 10:52-0400 Diastolic blood pressure 86 mm[Hg] Helder Tavera MD Work Phone: [facility] [employer] 09-04-2023 10:52-0400 Heart rate 70 /min Helder Tavera MD Work Phone: [facility] [employer] 09-04-2023 10:52-0400 SaO2% (BldA) [Mass fraction] 96 % Helder Tavera MD Work Phone: [facility] 09-04-2023 10:52-0400 Systolic blood pressure 138 mm[Hg] Helder Tavera MD Work Phone: [facility] 08-26-2023 11:19-0400 Body height 165.1 cm [facility]azlyn Marie [facility].; [employer] 08-26-2023 11:19-0400 Body mass index (BMI) [Ratio] 78.38 kg/m2 Jazlyn Liu Frank [facility] [employer] [facility].; [employer] 08-26-2023 11:19-0400 Body surface area Derived from formula 2.85 m2 Jazlyn Liu Frank [facility] [employer] [facility] [facility].; [employer]. 08-26-2023 11:19-040 Body weight 213.65 kg Jazlyn Liu Frank [facility] [employer] [facility] [facility].; [employer]. 08-26-2023 11:19-0400 Diastolic blood pressure 82 mm[Hg] Jazlyn [facility].; [employer]. Comment on above: Patient Position: Sitting; Cuff Location : Left Arm; Cuff Size: Standard 08-26-2023 11:19-0400 Heart rate 84 /min Jazlyn Marie [employer] [place] [employer] [facility] [facility].; [employer]. Comment on above: Pattern: Regular 08-26-2023 11:19-0400 Systolic blood pressure 132 mm[Hg] Jazlyn Marie LPN [facility] [facility].; [employer]. Comment on above: Patient Position: Sitting; Cuff Location : Left Arm; Cuff Size: Standard 08-21-2023 11:58-0400 Body temperature 97 [degF] VJ ZABALA Work Phone: [facility] 08-21-2023 11:58-0400 Diastolic blood pressure 58 mm[Hg] VJ ZABALA Work Phone: [facility] 08-21-2023 11:58-0400 Heart rate 68 /min PA Alondra Rosenberg PA Work Phone: [facility] 08-21-2023 11:58-0400 Respiratory rate 18 /min PA Alondra Rosenberg PA Work Phone: [facility] 08-21-2023 11:58-0400 SaO2% (BldA) [Mass fraction] 97 % PA Alondra Rosenberg PA Work Phone: [facility] 08-21-2023 11:58-0400 Systolic blood pressure 120 mm[Hg] PA Alondra Rosenberg PA Work Phone: 3(882)876-112079 [place] [address] 08-18-2023 13:13-0400 Body height 162.56 cm PA Alondra Rosenberg PA Work Phone: 2(712)222-092479 [place] [address] 08-18-2023 13:13-0400 Body weight 211.3 kg PA Alondra Rosenberg PA Work Phone: 2(041)214-407879 [place] [address] 08-18-2023 01:42-0400 Body mass index (BMI) [Ratio] 79.9 kg/m2 PA Alondra Rosenberg PA Work Phone: 2(676)832-984179 [place] [address] 08-18-2023 00:51-0400 Body temperature 101.2 [degF] PA Alondra Rosenberg PA Work Phone: 9(504)395-729679 [place] [address] 08-18-2023 00:51-0400 Diastolic blood pressure 62 mm[Hg] PA Alondra Rosenberg PA Work Phone: 6(348)985-125679 [place] [address] 08-18-2023 00:51-0400 Heart rate 89 /min PA Alondra Rosenberg PA Work Phone: [facility] 08-18-2023 00:51-0400 Respiratory rate 20 /min PA Alondra Rosenberg PA Work Phone: [facility] 08-18-2023 00:51-0400 SaO2% (BldA) [Mass fraction] 94 % PA Alondra Rosenberg PA Work Phone: [facility] 08-18-2023 00:51-0400 Systolic blood pressure 107 mm[Hg] PA Alondra Rosenberg PA Work Phone: [facility] 08-17-2023 23:44-0400 Body mass index (BMI) [Ratio] 82.3 kg/m2 PA Alondra Rosenberg PA Work Phone: [facility] 08-17-2023 23:44-0400 Body weight 217.7 kg PA Alondra Rosenberg PA Work Phone: [facility] 08-17-2023 22:20-0400 Body height 162.56 cm PA Alondra Rosenberg PA Work Phone: [facility] 07-31-2023 13:32-0400 Body height 165.1 cm Jazlyn Marie LPN [facility]. 07-31-2023 13:32-0400 Body mass index (BMI) [Ratio] 77.38 kg/m2 Jazlyn Marie LPN [facility].; [facility]. 07-31-2023 13:32-0400 Body surface area Derived from formula 2.83 m2 Jazlyn Marie LPN [facility].; [facility] 07-31-2023 13:32-0400 Body temperature 99.3 [degF] Jazlyn Marie LPN [facility] [employer] [facility] Comment on above: Method: Tympanic 07-31-2023 13:32-0400 Body weight 210.92 kg Jazlyn Marie LPN [facility] [employer] [facility] [facility] 07-31-2023 13:32-0400 Diastolic blood pressure 79 mm[Hg] Jazlyn Marie LPN [facility].; [employer] [facility] Comment on above: Patient Position: Sitting; Cuff Location : Left Arm; Cuff Size: Standard 07-31-2023 13:32-0400 Heart rate 84 /min Jazlyn Marie LPN [facility]. Comment on above: Pattern: Regular 07-31-2023 13:32-0400 Systolic blood pressure 132 mm[Hg] Jazlyn Marie LPN [facility].; [facility]. Comment on above: Patient Position: Sitting; Cuff Location : Left Arm; Cuff Size: Standard 07-31-2023 09:00-0400 Body temperature 97.8 [degF] PA Alondra Rosenberg PA Work Phone: 1(903)934-838879 [place] [address] 07-31-2023 09:00-0400 Diastolic blood pressure 90 mm[Hg] PA Alondra Rosenberg PA Work Phone: 4(253)844-429079 [place] [address] 07-31-2023 09:00-0400 Heart rate 82 /min PA Alondra Rosenberg PA Work Phone: 7(937)642-178679 [place] [address] 07-31-2023 09:00-0400 Respiratory rate 16 /min PA Alondra Rosenberg PA Work Phone: 8(105)926-724079 [place] [address] 07-31-2023 09:00-0400 SaO2% (BldA) [Mass fraction] 95 % PA Alondra Rosenberg PA Work Phone: 6(592)195-379579 [place] [address] 07-31-2023 09:00-0400 Systolic blood pressure 108 mm[Hg] PA Alondra Rosenberg PA Work Phone: 2(103)983-788879 [place] [address] 07-31-2023 04:01-0400 Body mass index (BMI) [Ratio] 82 kg/m2 PA Alondra Rosenberg PA Work Phone: 4(548)823-667179 [place] [address] 07-31-2023 04:01-0400 Body weight 223.4 kg PA Alondra Rosenberg PA Work Phone: [facility] 07-29-2023 10:57-0400 Body height 165 cm PA Alondra Rosenberg PA Work Phone: [facility] 07-25-2023 02:59-0400 Body height 165 cm PA Alondra Rosenberg PA Work Phone: [facility] 07-25-2023 02:59-0400 Body mass index (BMI) [Ratio] 82.1 kg/m2 PA Alondra Rosenberg PA Work Phone: [facility] 07-25-2023 02:59-0400 Body weight 223.6 kg PA Alondra Rosenberg PA Work Phone: [facility] 07-25-2023 01:00-0400 Body temperature 98.4 [degF] PA Alondra Rosenberg PA Work Phone: [facility] 07-25-2023 01:00-0400 Diastolic blood pressure 71 mm[Hg] PA Alondra Rosenberg PA Work Phone: [facility] 07-25-2023 01:00-0400 Heart rate 72 /min PA Alondra Rosenberg PA Work Phone: [facility] 07-25-2023 01:00-0400 Respiratory rate 16 /min PA Alondra Rosenberg PA Work Phone: 8(288)928-472579 [place] [address] 07-25-2023 01:00-0400 SaO2% (BldA) [Mass fraction] 97 % PA Alondra Rosenberg PA Work Phone: [facility] 07-25-2023 01:00-0400 Systolic blood pressure 131 mm[Hg] PA Alondra Rosenberg PA Work Phone: [facility] 07-16-2023 11:01-0400 Body height 165.1 cm [facility], [facility].; [facility]. 07-16-2023 11:01-0400 Body mass index (BMI) [Ratio] 77.81 kg/m2 [facility], [facility].; [facility]. 07-16-2023 11:01-0400 Body surface area Derived from formula 2.84 m2 [facility], [facility].; [facility]. 07-16-2023 11:01-0400 Body temperature 98.2 [degF] [facility], [facility].; [facility]. Comment on above: Method: Tympanic 07-16-2023 11:01-0400 Body weight 212.1 kg [facility], [employer] [facility] 07-16-2023 11:01-0400 Diastolic blood pressure 85 mm[Hg] [facility], [employer].; [employer]. Comment on above: Patient Position: Sitting; Cuff Location : Right Arm; Cuff Size: Large 07-16-2023 11:01-0400 Heart rate 69 /min [facility], [employer].; [employer]. Comment on above: Pattern: Regular 07-16-2023 11:01-0400 Inhaled oxygen concentration 20 % [facility], [employer].; [place] [employer] [facility]. Comment on above: Room air 07-16-2023 11:010400 Inhaled oxygen concentration 21 % [facility], [employer].; [employer]. Comment on above: Room air 07-16-2023 11:010400 SaO2% (BldA) [Mass fraction] 94 % [facility], [employer].; [employer] 07-16-2023 11:01-0400 Systolic blood pressure 125 mm[Hg] [facility], [employer].; [employer] [facility]. Comment on above: Patient Position: Sitting; Cuff Location : Right Arm; Cuff Size: Large 07-08-2023 10:16-0400 Body temperature 97.8 [degF] [facility] 07-08-2023 10:16-0400 Diastolic blood pressure 46 mm[Hg] [facility] 07-08-2023 10:16-0400 Heart rate 78 /min [facility] 07-08-2023 10:16-0400 Respiratory rate 16 /min [facility] 07-08-2023 10:16-0400 SaO2% (BldA) [Mass fraction] 97 % [facility] 07-08-2023 10:16-0400 Systolic blood pressure 133 mm[Hg] [facility] 07-08-2023 08:20-0400 Body mass index (BMI) [Ratio] 82.7 kg/m2 [facility] 07-08-2023 08:20-0400 Body weight 218.6 kg [facility] 07-08-2023 08:16-0400 Body height 162.56 cm [facility] 2023 14:54-0400 Body temperature 98.3 [degF] Carlo Eloy [employer] [facility] [facility] [email or web address] 2023 14:54-0400 Body weight 223.62 kg Carlo Lyons LPN [facility] [facility] [email or web address] 2023 14:54-0400 Diastolic blood pressure 74 mm[Hg] Carlo Eloy [employer] PROF[email or web address], [employer]. Comment on above: Patient Position: Sitting; Cuff Location : Left Arm; Cuff Size: Standard 2023 14:54-0400 Heart rate 66 /min Carlo Lyons LPN [email or web address], [employer]. Comment on above: Pattern: Regular 2023 14:54-0400 Systolic blood pressure 125 mm[Hg] Carlo Eloy HEAD [employer] PROF[email or web address], [employer]. Comment on above: Patient Position: Sitting; Cuff Location : Left Arm; Cuff Size: Standard 02-06-2023 11:28-0500 Body temperature 98.6 [degF] Carlo Lyons LPN [email or web address] 02-06-2023 11:28-0500 Body weight 227.25 kg Carlo Lyons LPN [email or web address] 02-06-2023 11:28-0500 Diastolic blood pressure 76 mm[Hg] Carlo Eloy [email or web address], [employer]. Comment on above: Patient Position: Sitting; Cuff Location : Left Arm; Cuff Size: Standard 02-06-2023 11:28-0500 Heart rate 71 /min Carlo Eloy [employer] PROF[email or web address], [employer]. Comment on above: Pattern: Regular 02-06-2023 11:28-0500 Systolic blood pressure 154 mm[Hg] Carlo Lyons LPN [facility].; [facility]. Comment on above: Patient Position: Sitting; Cuff Location : Left Arm; Cuff Size: Standard 02-02-2023 08:43-0500 Body height 162.56 cm Referring Provider Unknown DG-Zgqbzvt-[facility]ftw[facility]b [facility] DO Work Phone: 02-02-2023 08:43-0500 Body mass index (BMI) [Ratio] 85.83 kg/m2 Referring Provider Unknown [facility] DO Work Phone: 02-02-2023 08:43-0500 Body surface area Derived from formula 2.89 m2 Referring Provider Unknown RW[facility]zt[facility] DO Work Phone: 02-02-2023 08:43-0500 Body weight 226.8 kg Referring Provider Unknown JR-[facility]ubtfil[facility] DO Work Phone: 02-02-2023 08:43-0500 Diastolic blood pressure 81 mm[Hg] Referring Provider Unknown YW[facility] DO Work Phone: 02-02-2023 08:43-0500 Heart rate 76 /min Referring Provider Unknown HX-Wjvdjkz-[facility]qbms [facility] DO Work Phone: 02-02-2023 08:43-0500 Systolic blood pressure 146 mm[Hg] Referring Provider Unknown NR-Ktciijq[facility] DO Work Phone: 09-10-2022 11:00-0400 Body height 165.1 cm Ashley Torres MA [facility]. 09-10-2022 11:00-0400 Body mass index (BMI) [Ratio] 82.87 kg/m2 Ashley Torres MA [facility].; [facility]. 09-10-2022 11:00-0400 Body surface area Derived from formula 2.92 m2 Ashley Torres MA [facility].; [facility]. 09-10-2022 11:00-0400 Body weight 225.89 kg Ashley Torres MA [facility].; [employer] [facility]. 09-10-2022 11:00-0400 Diastolic blood pressure 56 mm[Hg] Ashley Torres MA [place] [employer] [facility] [facility].; [place] [employer] [facility]. Comment on above: Patient Position: Sitting; Cuff Location : Left Arm; Cuff Size: Large 09-10-2022 11:00-0400 Heart rate 94 /min Ashley Torres MA [facility].; [employer]. Comment on above: Pattern: Regular 09-10-2022 11:00-0400 Systolic blood pressure 119 mm[Hg] Ashley Torres MA [place] [employer] [facility].; [place] [employer] [facility]. Comment on above: Patient Position: Sitting; Cuff Location : Left Arm; Cuff Size: Large 02-21-2022 10:55-0400 Body height 165.1 cm Alondra Agusto Rosenberg PA-C Work Phone: [employer].; [employer] 02-21-2022 10:55-0400 Body mass index (BMI) [Ratio] 79.88 kg/m2 Alondra J Rosenberg PA-C Work Phone: [employer].; [employer] [facility]. 02-21-2022 10:55-0400 Body surface area Derived from formula 2.87 m2 Alondra J Rosenberg PA-C Work Phone: [employer].; [employer] [facility]. 02-21-2022 10:55-0400 Body weight 217.73 kg Alondra Agusto Rosenberg PA-C Work Phone: [employer].; [employer] 02-21-2022 10:55-0400 Diastolic blood pressure 90 mm[Hg] Alondra J Rosenberg PA-C Work Phone: [employer].; [employer]. Comment on above: Patient Position: Sitting; Cuff Location : Left Arm; Cuff Size: Standard 02-21-2022 10:55-0400 Heart rate 76 /min Alondra J Rosenberg PA-C Work Phone: [facility] Comment on above: Pattern: Regular 02-21-2022 10:55-0400 Inhaled oxygen concentration 20 % Alondra Liz Rosenberg PA-C Work Phone: [facility].; [facility] [employer]. Comment on above: Room air 02-21-2022 10:55-0400 Inhaled oxygen concentration 21 % Alondra J Rosenberg PA-C Work Phone: [facility] Comment on above: Room air 02-21-2022 10:55-0400 SaO2% (BldA) [Mass fraction] 98 % Alondra J Rosenberg PA-C Work Phone: [facility] 02-21-2022 10:55-0400 Systolic blood pressure 161 mm[Hg] Alondra J Rosenberg PA-C Work Phone: [facility] Comment on above: Patient Position: Sitting; Cuff Location : Left Arm; Cuff Size: Standard 12-12-2021 13:02-0500 Diastolic blood pressure 76 mm[Hg] PA Alondra Rosenberg PA Work Phone: [facility] Work Phone: 12-12-2021 13:02-0500 Systolic blood pressure 149 mm[Hg] PA Alondra Rosenberg PA Work Phone: [facility] Work Phone: 12-12-2021 12:56-0500 Body height 165.1 cm PA Alondra Rosenberg PA Work Phone: [facility] Work Phone: 12-12-2021 12:56-0500 Body mass index (BMI) [Ratio] 76.2 kg/m2 PA Alondra Rosenberg PA Work Phone: [facility] Work Phone: 12-12-2021 12:56-0500 Body temperature 97 [degF] PA Alondra Rosenberg PA Work Phone: [facility] Work Phone: 12-12-2021 12:56-0500 Body weight 207.74 kg PA Alondra Rosenberg PA Work Phone: [facility] Work Phone: 12-12-2021 12:56-0500 Heart rate 76 /min PA Alondra Piedraer PA Work Phone: [facility] Work Phone: 12-12-2021 12:56-0500 Respiratory rate 18 /min PA Alondra Piedraer PA Work Phone: [facility] Work Phone: 12-12-2021 12:56-0500 SaO2% (BldA) [Mass fraction] 97 % PA Alondra Rosenberg PA Work Phone: [facility] Work Phone: 11-15-2021 11:01-0500 Body height 165.1 cm Cadence Palmer L[facility] [place] [employer], [facility]. 11-15-2021 11:01-0500 Body mass index (BMI) [Ratio] 74.22 kg/m2 Cadence Palmer HEAD [employer] PROFESSION[employer] [facility]. 11-15-2021 11:01-0500 Body surface area Derived from formula 2.78 m2 Cadence Palmer LPN [facility] [employer], [facility]. 11-15-2021 11:01-0500 Body weight 202.31 kg Cadence Palmer HEAD TENNIS PROFESSIONAL [facility].; [employer], [facility]. 11-15-2021 11:01-0500 Diastolic blood pressure 80 mm[Hg] Cadence Palmer LPN [facility] [employer], [facility]. Comment on above: Patient Position: Sitting; Cuff Location : Left Arm; Cuff Size: Standard 11-15-2021 11:01-0500 Heart rate 67 /min Cadence Garciaugg BECCA [email or web address], [employer]. Comment on above: Pattern: Regular 11-15-2021 11:01-0500 Inhaled oxygen concentration 20 % Cadence Garciaugg HEAD [employer]ENNIS PROFESSIONAL [employer] Comment on above: Room air 11-15-2021 11:01-0500 Inhaled oxygen concentration 21 % Cadence Garciaugg HEAD TENNIS PROFESSIONAL [employer] Comment on above: Room air 11-15-2021 11:01-0500 SaO2% (BldA) [Mass fraction] 99 % Cadence Garciaugg HEAD [employer] PROFESSIONAL [employer]. 11-15-2021 11:01-0500 Systolic blood pressure 147 mm[Hg] Cadence Garciaugg HEAD TENNIS PROFESSIONAL [employer]. Comment on above: Patient Position: Sitting; Cuff Location : Left Arm; Cuff Size: Standard 10-11-2021 14:40-0500 Body height 165.1 cm Alondra Agusto Piedraer PA-C Work Phone: [employer] 10-11-2021 14:40-0500 Body mass index (BMI) [Ratio] 74.38 kg/m2 Alondra Agusto Rosenberg PA-C Work Phone: [employer]. 10-11-2021 14:40-0500 Body surface area Derived from formula 2.78 m2 Alondra Agusto Rosenberg PA-C Work Phone: [employer].; [employer]. 10-11-2021 14:40-0500 Body weight 202.76 kg Alondra Agusto Rosenberg PA-C Work Phone: [employer].; [employer] 10-11-2021 14:40-0500 Diastolic blood pressure 76 mm[Hg] Alondra J Rosenberg PA-C Work Phone: [employer]. Comment on above: Patient Position: Sitting; Cuff Location : Left Arm; Cuff Size: Standard 10-11-2021 14:40-0500 Heart rate 81 /min Alondra Liz Rosenberg PA-C Work Phone: [facility] [employer]. Comment on above: Pattern: Regular 10-11-2021 14:40-0500 Inhaled oxygen concentration 20 % Alondra Agusto Rosenberg PA-C Work Phone: [place] [employer].; [employer]. Comment on above: Room air 10-11-2021 14:40-0500 Inhaled oxygen concentration 21 % Alondra Agusto Rosenberg PA-C Work Phone: [facility]; [employer]. Comment on above: Room air 10-11-2021 14:40-0500 SaO2% (BldA) [Mass fraction] 96 % Alondra Agusto Rosenberg PA-C Work Phone: [place] [employer]; [employer] 10-11-2021 14:40-0500 Systolic blood pressure 137 mm[Hg] Alondra Agusto Rosenberg PA-C Work Phone: [place] [employer] [facility]; [employer]. Comment on above: Patient Position: Sitting; Cuff Location : Left Arm; Cuff Size: Standard 09-12-2021 14:33-0400 Body height 165.1 cm Jazlyn [facility]PN [facility].; [place] [employer] [facility] [facility]. 09-12-2021 14:33-0400 Body mass index (BMI) [Ratio] 71.56 kg/m2 Jazlyn [facility] LPN [facility].; [place] [employer] [facility] [facility]. 09-12-2021 14:33-0400 Body surface area Derived from formula 2.74 m2 Jazlyn [facility] LPN [facility].; [place] [employer]. 09-12-2021 14:33-0400 Body weight 195.05 kg Jazlyn [facility] LPN [facility].; [employer]. 09-12-2021 14:33-0400 Diastolic blood pressure 87 mm[Hg] Jazlyn Liu [facility].; [employer]. Comment on above: Patient Position: Sitting; Cuff Location : Right Arm; Cuff Size: Standard 09-12-2021 14:33-0400 Heart rate 74 /min Jazlyn Liu Frank [facility] [employer]. Comment on above: Pattern: Regular 09-12-2021 14:33-0400 Inhaled oxygen concentration 20 % Jazlyn Liu Frank [facility] [employer]. Comment on above: Room air 09-12-2021 14:33-0400 Inhaled oxygen concentration 21 % Jazlyn Carllabach [facility], [employer]. Comment on above: Room air 09-12-2021 14:33-0400 SaO2% (BldA) [Mass fraction] 93 % Jazlyn Liu Frank [facility].; [employer]. 09-12-2021 14:33-0400 Systolic blood pressure 150 mm[Hg] Jazlyn Liu Frank [facility] [employer] [facility].; [employer]. 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 08-29-2021 13:07-0400 Body mass index (BMI) [Ratio] 74.05 kg/m2 Jazlyn Alexa Frank [employer] PROF[employer] [facility].; [employer]. 08-29-2021 13:07-040 Body surface area Derived from formula 2.78 m2 Jazlyn M Frank [facility] [employer] [facility].; [employer]. 08-29-2021 13:07-0400 Body temperature 98.7 [degF] Jazlyn M Frank [facility] [employer] [facility] [facility].; [employer]. Comment on above: Method: Tympanic 08-29-2021 13:07-0400 Body weight 201.85 kg Jazlyn Liu Frank [facility] [employer] [facility] [facility]. 08-29-2021 13:07-0400 Diastolic blood pressure 76 mm[Hg] Jazlyn Liu Frank [facility] [employer]. Comment on above: Patient Position: Sitting; Cuff Location : Left Arm; Cuff Size: Standard 08-29-2021 13:07-0400 Heart rate 75 /min Jazlyn Liu Frank [facility] [employer]. Comment on above: Pattern: Regular 08-29-2021 13:07-0400 Inhaled oxygen concentration 20 % Jazlyn Marie LPN [facility] [employer] Comment on above: Room air 08-29-2021 13:07-0400 Inhaled oxygen concentration 21 % Jazlyn Marie LPN [facility] [employer]. Comment on above: Room air 08-29-2021 13:07-0400 SaO2% (BldA) [Mass fraction] 93 % Jazlyn Liu [facility] [employer]. 08-29-2021 13:07-0400 Systolic blood pressure 144 mm[Hg] Jazlyn Alexa Frank [facility] [employer]. Comment on above: Patient Position: Sitting; Cuff Location : Left Arm; Cuff Size: Standard 08-12-2021 13:54-0400 Body height 165.1 cm Alondra Rosenberg PA-C Work Phone: [place] [employer] [facility] [facility].; [employer]. 08-12-2021 13:54-0400 Body mass index (BMI) [Ratio] 69.39 kg/m2 Alondra Rosenberg PA-C Work Phone: [place] [employer] [facility] [facility].; [employer]. 08-12-2021 13:54-0400 Body surface area Derived from formula 2.7 m2 Alondra Rosenberg PA-C Work Phone: [employer]; [employer] 08-12-2021 13:54-0400 Body weight 189.15 kg Alondra Piedraer PA-C Work Phone: [employer]; [employer]. 08-12-2021 13:54-0400 Diastolic blood pressure 74 mm[Hg] Alondra Liz Rosenberg PA-C Work Phone: [employer]; [employer]. Comment on above: Patient Position: Sitting; Cuff Location : Left Arm; Cuff Size: Standard 08-12-2021 13:54-0400 Heart rate 110 /min Alondra Piedraer PA-C Work Phone: [employer]; [employer]. Comment on above: Pattern: Regular 08-12-2021 13:54-0400 Inhaled oxygen concentration 20 % Alondra Liz Rosenberg PA-C Work Phone: [employer]; [employer]. Comment on above: Room air 08-12-2021 13:54-0400 Inhaled oxygen concentration 21 % Alondra Liz Rosenberg PA-C Work Phone: [employer]; [employer]. Comment on above: Room air 08-12-2021 13:54-0400 SaO2% (BldA) [Mass fraction] 95 % Alondra Liz Rosenberg PA-C Work Phone: [employer]; [employer]. 08-12-2021 13:54-0400 Systolic blood pressure 118 mm[Hg] Alondra Liz Rosenberg PA-C Work Phone: [employer]; [employer]. Comment on above: Patient Position: Sitting; Cuff Location : Left Arm; Cuff Size: Standard 07-03-2021 17:22-0400 Body temperature 98.8 [degF] Stephen Issa DO Work Phone: [facility] Work Phone: 07-03-2021 17:22-0400 Diastolic blood pressure 75 mm[Hg] Stephen Issa DO Work Phone: [facility] Work Phone: 07-03-2021 17:22-0400 Heart rate 88 /min Stephen [facility] DO [facility] Work Phone: 07-03-2021 17:22-0400 Respiratory rate 16 /min Stephen Issa DO Work Phone: [facility] Work Phone: 07-03-2021 17:22-0400 SaO2% (BldA) [Mass fraction] 93 % Stephen Issa DO Work Phone: [facility] Work Phone: 07-03-2021 17:22-0400 Systolic blood pressure 147 mm[Hg] Stephen Issa DO Work Phone: [facility] Work Phone: 07-03-2021 06:52-0400 Body mass index (BMI) [Ratio] 69.56 kg/m2 Stephen Issa DO Work Phone: [facility] Work Phone: 07-03-2021 06:52-0400 Body weight 189.6 kg Stephen Issa DO Work Phone: [facility] Work Phone: 06-25-2021 14:28-0400 Body height 165.1 cm Stephen Issa DO Work Phone: [facility] Work Phone: 06-03-2021 08:00-0400 Body temperature 97.9 [degF] Nawaf Dalton MD [facility] 06-03-2021 08:00-0400 Diastolic blood pressure 91 mm[Hg] Nawaf Dalton MD Work Phone: [facility] 06-03-2021 08:00-0400 Heart rate 62 /min Nawaf Dalton MD Work Phone: [facility] 06-03-2021 08:00-0400 Respiratory rate 37 /min Nawaf Dalton MD Work Phone: [facility] 06-03-2021 08:00-0400 SaO2% (BldA) [Mass fraction] 93 % Nawaf Dalton MD Work Phone: [facility] 06-03-2021 08:00-0400 Systolic blood pressure 159 mm[Hg] Nawaf Dalton MD Work Phone: [facility] 06-02-2021 15:47-0400 SaO2% (BldA) [Mass fraction] 96.5 % Joe Sommers [facility] 06-02-2021 15:41-0400 Body height 165.1 cm Nawaf Dalton MD Work Phone: [facility] 06-02-2021 15:41-0400 Body mass index (BMI) [Ratio] 73.22 kg/m2 Nawaf Dalton MD Work Phone: [facility] 06-02-2021 15:41-0400 Body weight 199.58 kg Nawaf Dalton MD Work Phone: [facility] 05-17-2021 14:30-0400 Body height 165.1 cm Jazlyn [facility] L[facility]. 05-17-2021 14:30-0400 Body mass index (BMI) [Ratio] 78.21 kg/m2 Jazlyn Marie L[facility]. 05-17-2021 14:30-0400 Body surface area Derived from formula 2.84 m2 Jazlyn Marie LPN [facility]. 05-17-2021 14:30-0400 Body weight 213.19 kg Jazlyn [facility].; [employer]. 05-17-2021 14:30-0400 Diastolic blood pressure 80 mm[Hg] Jazlyn Alexa Marie LPN [employer]. Comment on above: Patient Position: Sitting; Cuff Location : Left Arm; Cuff Size: Standard 05-17-2021 14:30-0400 Heart rate 83 /min Jazlyn Marie LPN [employer]. Comment on above: Pattern: Regular 05-17-2021 14:30-0400 Systolic blood pressure 132 mm[Hg] Jazlyngaudencio Marie LPN [employer].; [employer] Comment on above: Patient Position: Sitting; Cuff Location : Left Arm; Cuff Size: Standard 03-14-2021 14:11-0400 Body height 165.1 cm Alondra Rosenberg PA-C Work Phone: [employer]. 03-14-2021 14:11-0400 Body mass index (BMI) [Ratio] 75.88 kg/m2 Alondra Rosenberg PA-C Work Phone: [employer]. 03-14-2021 14:11-0400 Body surface area Derived from formula 2.81 m2 Alondra Rosenberg PA-C Work Phone: [employer] 03-14-2021 14:11-0400 Body weight 206.84 kg Alondra Rosenberg PA-C Work Phone: [employer]. 03-14-2021 14:11-0400 Diastolic blood pressure 69 mm[Hg] Alondra Rosenberg PA-C Work Phone: [employer]. Comment on above: Patient Position: Sitting; Cuff Location : Left Arm; Cuff Size: Standard 03-14-2021 14:11-0400 Heart rate 92 /min Alondra Rosenberg PA-C Work Phone: [facility] Comment on above: Pattern: Regular 03-14-2021 14:11-0400 Systolic blood pressure 130 mm[Hg] Alondra Piedraer PA-C Work Phone: [facility] Comment on above: Patient Position: Sitting; Cuff Location : Left Arm; Cuff Size: Standard 06-01-2020 03:00-0400 BP Diastolic 81 mm[Hg] [facility] [place] [facility] [place] 06-01-2020 03:00-0400 BP Systolic 137 mm[Hg] [facility] [place] [facility] [place] 06-01-2020 03:00-0400 Respiratory Rate 17 /min [facility] [employer], [place] 06-01-2020 00:45-0400 BMI (Body Mass Index) 69.56 kg/m2 [facility] [employer] [facility], [place] 06-01-2020 00:45-0400 Body Temperature 98.8 [degF] [facility] [employer] [facility], [place] 06-01-2020 00:45-0400 Body weight 189.6 kg [facility] [place] 06-01-2020 00:45-0400 Height 165.1 cm [facility] [place] 06-01-2020 00:45-0400 Pulse (Heart Rate) 71 /min [facility] [place] 06-01-2020 00:45-0400 Pulse Oximetry 98 % [facility] [place] Encounters Encounter Date Encounter Type Care Provider Facility Start: 08-01-2025 End: 08-01-[address] Khai Barakat MD -[facility] Work Phone: Start: 08-01-2025 End: 08-01-2025 ambulatory Alondra Rosenberg PA Work Phone: -[facility] Start: 06-29-2025 ambulatory ALONDRA Mcgregor [facility] Start: 06-27-2025 End: 06-27-2025 Medication Alondra Rosenberg PA-C Work Phone[facility] Start: 06-26-2025 Review Alondra Rosenberg PA-C [facility]: [facility] Start: 06-26-2025 End: 06-26-2025 Medication Alondra Piedraer PA-C Work Phone: [facility] Start: 06-23-2025 End: 06-23-2025 Office outpatient visit 25 minutes Alondra Rosenberg PA-C Work Phone: [facility] Start: 06-20-2025 ambulatory Alondra Rosenberg PA Facil ity:[facility] Start: 06-19-2025 Review Alondra Rosenberg PA-C Work Phone: [facility] Start: 06-19-2025 End: 06-19-2025 Telephone follow-up Alondra Piedraer PA-C Work Phone: [facility] Start: 06-16-2025 Non-patient / Non-visit Dr. Brittani Looney MD -[facility] Work Phone: Start: 06-15-2025 ambulatory Alondraboston Piedraer PA Facil ity:[facility] Start: 06-15-2025 Non-patient / Non-visit [facility] Ihsan [facility]irre [facility] Start: 06-15-2025 Non-patient / Non-visit Dr. Antoni Abdul DO [facility] Work Phone: Start: 06-14-2025 Non-patient / Non-visit Dr. Antoni Abdul [facility] Work Phone: Start: 06-13-2025 Non-patient / Non-visit Dr. Antoni Abdul DO [facility] Work Phone: Start: 06-12-2025 Non-patient / Non-visit Dr. Antoni Abdul DO [facility] Work Phone: Start: 06-11-2025 ambulatory Alondra Rosenberg PA Facil ity:[facility] Start: 06-11-2025 End: 06-16-2025 Evaluation and management of inpatient Dr. Mauri Sampson [facility] Work Phone: Start: 06-09-2025 End: 06-09-2025 Office outpatient visit 25 minutes Alondra Rosenberg PA-C Work Phone: [employer] Start: 06-09-2025 Follow-up encounter Alondra ZABALA-Jennifer Work Phone: [employer]. Start: 12-21-2024 End: 12-21-2024 Medication Alondra ZABALA-Jennifer Work Phone: [employer]. Start: 12-21-2024 Review Alondra ZABALA-C Work Phone: [employer]. Start: 11-18-2024 ambulatory YAMILE PERSON SANDRO [facility] Start: 11-11-2024 End: 11-11-2024 ambulatory ALONDRA ROSENBERG [facility] Start: 11-11-2024 End: 11-11-2024 Office outpatient new 60 minutes Alondra Rosenberg PA-C Work Phone: [facility] Comment on above: Positive LIZ (antinu clear antibody) (Primary Dx); Arthralgia, unspecified joint; CRP elevated; Lymphedema; Recurrent cellulitis Start: 08-05-2024 End: 08-05-2024 Medication Alondra ZABALA-C Work Phone: [employer]. Start: 06-24-2024 End: 06-24-2024 Orders Alondra ZABALA-C Work Phone: [employer]. Start: 06-15-2024 End: 06-15-2024 Medication Alondra Rosenberg PA-C Work Phone: [employer]. Start: 06-15-2024 Review Alondra Rosenberg PA-C Work Phone: [employer] Start: 06-15-2024 End: 06-15-2024 Orders Alondra Rosenberg PA-C Work Phone: [employer] Start: 06-13-2024 End: 06-13-2024 Patient encounter procedure Alondra Rosenberg PA-C Work Phone: [facility] Start: 05-12-2024 End: 05-12-2024 Office outpatient visit 25 minutes Alondra Rosenberg PA-C Work Phone: [facility] Start: 05-10-2024 End: 05-10-2024 Telephone follow-up Alondra Rosenberg PA-C Work Phone: [facility] Start: 04-15-2024 End: 04-15-2024 Office outpatient visit 15 minutes Alondra Rosenberg PA-C Work Phone: [facility] [facility] Start: 04-11-2024 End: 04-11-2024 Telephone follow-up Alondra Rosenberg PA-C Work Phone: [facility] Start: 04-08-2024 Non-patient / Non-visit PA Alondra Rosenberg PA Work Phone: [facility] Work Phone: Start: 04-07-2024 Non-patient / Non-visit PA Alondra Rosenberg PA Work Phone: [facility] Work Phone: Start: 04-06-2024 Non-patient / Non-visit PA Alondra Rosenberg PA Work Phone: [facility] Work Phone: Start: 04-05-2024 Non-patient / Non-visit PA Alondra Rosenberg PA Work Phone: [facility] Start: 04-04-2024 End: 04-08-2024 Evaluation and management of inpatient [facility] Work Phone: Start: 04-01-2024 End: 04-01-2024 Office outpatient visit 25 minutes Alondra Rosenberg PA-C Work Phone: [facility] Start: 09-04-2023 End: 09-04-2023 ambulatory HELDER TAVERA [facility] Start: 09-04-2023 End: 09-04-2023 Office outpatient new 45 minutes Helder Tavera MD Work Phone: [facility] Infectious Disease Comment on above: Morbid obesity (HCC) (Primary Dx); Recurrent cellulitis of lower extremity; Chronic acquired lymphedema Start: 08-26-2023 End: 08-26-2023 Patient encounter procedure Alondra Rosenberg PA-C Work Phone: [facility]. Start: 08-21-2023 Non-patient / Non-visit PA Alondra Rosenberg PA Work Phone: [facility] Work Phone: Start: 08-20-2023 Non-patient / Non-visit PA Alondra Rosenberg PA Work Phone: [facility] Work Phone: Start: 08-19-2023 Non-patient / Non-visit PA Alondra Rosenberg PA Work Phone: [facility] Work Phone: Start: 08-18-2023 End: 08-21-2023 Evaluation and management of inpatient PA Alondra Rosenberg PA Work Phone: [facility] Work Phone: Start: 07-31-2023 End: 07-31-2023 Office outpatient visit 15 minutes Alondra Rosenberg PA-C Work Phone: [facility] Start: 07-31-2023 Non-patient / Non-visit PA Alondra Rosenberg PA Work Phone: [facility] Work Phone: Start: 07-30-2023 Non-patient / Non-visit PA Alondra Rosenberg PA Work Phone: [facility] Work Phone: Start: 07-29-2023 Non-patient / Non-visit PA Alondra Rosenberg PA Work Phone: [facility] Start: 07-29-2023 Non-patient / Non-visit PA Alondra Rosenberg PA Work Phone: [facility] Work Phone: Start: 07-28-2023 Non-patient / Non-visit PA Alondra Rosenberg PA Work Phone: [facility] Work Phone: Start: 07-27-2023 Non-patient / Non-visit PA Alondra Rosenberg PA Work Phone: [facility] Work Phone: Start: 07-26-2023 Non-patient / Non-visit PA Alondra Rosenberg PA Work Phone: [facility] Work Phone: Start: 07-25-2023 Non-patient / Non-visit PA Alondra Rosenberg PA Work Phone: [facility] Work Phone: Start: 07-25-2023 End: 07-31-2023 Evaluation and management of inpatient PA Alondra Rosenberg PA Work Phone: [facility] Work Phone: Start: 07-16-2023 End: 07-16-2023 Office outpatient visit 15 minutes Alondra Rosenberg PA-C Work Phone: [facility]. Start: 07-08-2023 Non-patient / Non-visit PA Alondra Rosenberg PA Work Phone: [facility] Start: 07-08-2023 End: 07-08-2023 Emergency department patient visit [facility] Work Phone: Start: 05-06-2023 End: 05-06-2023 Medication Alondra Rosenberg PA-C Work Phone: [employer] Start: 2023 End: 2023 Patient encounter procedure Alondra ZABALA-Jennifer Work Phone: [employer] Start: 02-06-2023 End: 02-06-2023 Patient encounter procedure Alondra Rosenberg PA-C Work Phone: [employer] Start: 02-02-2023 Patient encounter procedure Referring Provider Unknown [facility] Work Phone: Start: 02-02-[address] Tennille Huertas [facility] [id number] Start: 09-10-2022 End: 09-10-2022 Office outpatient visit 25 minutes Alondra Rosenberg PA-C Work Phone: [employer] Start: 04-04-2022 End: 04-04-2022 Patient encounter procedure VJ ZABALA Work Phone: [facility] Start: 02-26-2022 End: 02-26-2022 Subsequent hospital visit by physician Alondra Rosenberg PA-C Work Phone: [facility] Comment on above: Arrived Start: 02-26-2022 End: 02-26-2022 Orders Alondra Rosenberg PA-C Work Phone: [employer]. Start: 02-21-2022 End: 02-21-2022 Office outpatient visit 25 minutes Alondra Rosenberg PA-C Work Phone: [employer]. Start: 01-27-2022 End: 01-27-2022 Orders Alondra ZABALA-Jennifer Work Phone: [employer]. Start: 12-12-2021 End: 12-12-2021 Patient encounter procedure VJ ZABALA Work Phone: [facility]-Pulmonary Medicine [facility] Start: 11-15-2021 End: 11-15-2021 Office outpatient visit 25 minutes Alondra Rosenberg PA-C Work Phone: [employer] Start: 10-11-2021 End: 10-11-2021 Patient encounter procedure Alondra ZBAALA-C Work Phone: [employer] Start: 09-12-2021 End: 09-12-2021 Office outpatient visit 25 minutes Alondra Rosenberg PA-C Work Phone: [employer] Start: 08-29-2021 End: 08-29-2021 Office outpatient visit 25 minutes Alondra Rosenberg PA-C Work Phone: [employer] Start: 08-12-2021 End: 08-12-2021 Historical Summary Alondra Rosenberg PA-C Work Phone: [employer] Start: 08-12-2021 End: 08-12-2021 Patient encounter procedure Alondra ZABALA-Jennifer Work Phone: [employer] Start: 08-06-2021 End: 08-06-2021 Telephone follow-up Alondra Rosenberg PA-C Work Phone: [employer] Start: 06-03-2021 End: 07-03-2021 Evaluation and management of inpatient Stephen Parsons DO Work Phone: [facility] Start: 06-02-2021 End: 06-03-2021 Evaluation and management of inpatient Nawaf Dalton MD Work Phone: [facility] ICU Comment on above: Pneumonia due to 201 9 novel coronavirus Start: 05-20-2021 End: 05-20-2021 Orders Alondra ZABALA-C Work Phone: [employer] Start: 05-20-2021 End: 05-20-2021 Medication Alondra Rosenberg PA-C Work Phone: [employer] Start: 05-17-2021 ambulatory ALONDRA Hernadez [facility] Start: 05-17-2021 End: 05-17-2021 Patient encounter procedure Alondra Rosenberg PA-C Work Phone: [employer] [facility] Start: 05-09-2021 End: 05-09-2021 Orders Alondra Rosenberg PA-C Work Phone: [employer] [facility] Start: 04-05-2021 End: 04-05-2021 Subsequent hospital visit by physician Alondra Rosenberg PA-C Work Phone: [facility]ocardi[facility] Comment on above: Arrived Start: 03-14-2021 End: 03-14-2021 Office outpatient new 45 minutes Alondra Rosenberg PA-C Work Phone: [employer] [facility] Start: 02-06-2021 End: 02-06-2021 Orders Only Svitlana Ramirez Moreliz Work Phone: [facility] Start: 05-31-2020 End: 06-01-2020 Emergency department patient visit [facility] Emergency Dept Comment on above: Flank pain (Primary Dx) Start: 03-01-2018 Ambulatory Fanta Worrell y:[place] Start: 03-01-2018 End: 03-01-2018 Ambulatory Herminiasangita Downing Robert Work Phone: [facility] Preoperative state Referring Pro vider Unknown [facility] DO Work Phone: Procedures Date Procedure Procedure Detail Performing Clinician Start: 06-16-2025 Estimated creatinine clearance Alondra ZABALA Work Phone: Start: 06-11-2025 Blood culture Alondra ZABALA Work Phone: Start: 06-11-2025 SARS-CoV-2, Influenz a & RSV (PCR) Alondra ZABALA Work Phone: Start: 06-11-2025 Urine culture Alondra ZABALA Work Phone: Start: 06-11-2025 Oxygen measurement Hannah ZABALA Work Phone: Start: 06-11-2025 Urnls dip stick/tabl et reagent auto microscopy Alondra Rosenberg VJ Work Phone: Start: 06-11-2025 Estimated creatinine clearance Alondra Rosenberg VJ Work Phone: Start: 06-10-2025 X-ray of chest, PA a nd lateral views Alondra Rosenberg VJ Work Phone: Start: 08-17-2023 Plain chest X-ray PA Me shilo Rosenberg PA Work Phone: Start: 07-28-2023 Plain chest X-ray PA Me shilo Rosenberg PA Work Phone: Start: 07-26-2023 Ultrasonography of limb PA Alondra Rosenberg VJ Work Phone: Start: 07-25-2023 Bacteria identified in Blood by Culture PA Alondra Rosenberg VJ Work Phone: Start: 07-08-2023 Bacteria identified in Blood by Culture PA Alondra Rosenberg VJ Work Phone: Start: 02-02-2023 Psychiatric diagnost ic evaluation Referring Provider Unknown Start: 02-26-2022 Us abdominal real ti me w/image limited Alondra Rosenberg PA-C Work Phone: Start: 02-21-2022 End: 02-27-2022 Unlisted us procedure Alondra Rosenberg P A-C Work Phone: Comment on above: [...] 07-03-2021 Manual Differential panel - Blood Michelle Coelho DO Work Phone: Start: 07-02-2021 Gluc bld [...] Phone: Start: 07-02-2021 Hepatic function panel Tello Hallie DO Work Phone: Start: 07-02-2021 Manual Differential panel - Blood Michelle Coelho DO Work Phone: Start: 07-01-2021 Gluc bld [...] 07-01-2021 Manual Differential panel - Blood Michelle Coelho DO Work Phone: Start: 06-30-2021 Gluc bld [...] use Stephen Parsons DO Work Phone: Start: 06-29-2021 Gluc bld gluc mntr d ev cleared fda spec home use Ruth Zachariah DO Work Phone: Start: 06-29-2021 Basic metabolic pane l calcium total Silver Nick MD Work Phone: Start: 06-29-2021 Manual Differential panel - Blood Michelle Coelho DO Work Phone: Start: 06-28-2021 Gluc bld gluc mntr d ev cleared fda spec home use Ruth Zachariah DO Work Phone: Start: 06-28-2021 Gluc bld gluc mntr d ev cleared fda spec home use Stephen Parsons DO Work Phone: Start: 06-28-2021 Gluc bld gluc mntr d ev cleared fda spec home use Ruth Zachariah DO Work Phone: Start: 06-28-2021 Gluc bld gluc mntr d ev cleared fda spec home use Ruth Soni DO Work Phone: Start: 06-28-2021 Basic metabolic pane l calcium total Silver Nick MD Work Phone: Start: 06-28-2021 Hepatic function panel Tello Sterling DO Work Phone: Start: 06-28-2021 Manual Differential panel - Blood Michelle Coelho DO Work Phone: Start: 06-27-2021 Gluc bld [...] Phone: Start: 06-26-2021 Creatinine other source Lindsey K Maria Del Carmen MD Work Phone: Start: 06-26-2021 Urnls dip stick/tabl et rgnt auto w/o microscopy Lindsey Joyce MD Work Phone: Start: 06-26-2021 Us retroperitoneal r eal time w/image complete Monae Martinez DO Work Phone: Start: 06-26-2021 Gluc bld [...] 06-26-2021 Manual Differential panel - Blood Michelle Coelho DO Work Phone: Start: 06-26-2021 Drug screen [...] Basic metabolic pane l calcium total Checo Kusar DO Work Phone: Start: 06-25-2021 Ecg routine ecg w/le ast 12 lds w/i&r Tello Sterling DO Work Phone: Start: 06-25-2021 Gluc bld [...] Work Phone: Start: 06-24-2021 Calcium ionized Michelle Peacock mmers DO Work Phone: Start: 06-24-2021 Hepatic function panel Michelle DO Work Phone: Start: 06-23-2021 Assay of [id number] Kyung Wong DO Work Phone: Start: 06-23-2021 ADD ON LAB TEST Kyung grover DO Work Phone: Start: 06-23-2021 Gluc bld gluc mntr d ev cleared fda spec home use Ruth Soni DO Work Phone: Start: 06-23-2021 BASIC METABOLIC PANE L W/ REFLEX TO MG FOR LOW K Michelle DO Work Phone: Start: 06-23-2021 Calcium ionized Michelle Peacock mmers DO Work Phone: Start: 06-23-2021 Hepatic [...] Work Phone: Start: 06-22-2021 Calcium ionized Michelle Peacock mmers DO Work Phone: Start: 06-22-2021 Hepatic [...] Work Phone: Start: 06-21-2021 Calcium ionized Michelle Peacock mmers DO Work Phone: Start: 06-21-2021 Hepatic function panel Michelle Coelho DO Work Phone: Start: 06-20-2021 Gluc bld [...] REFLEX TO MG FOR LOW K Michelle Coelho DO Work Phone: Start: 06-20-2021 End: 06-20-2021 Calcium ionized Michelle Coelho DO Work Phone: Start: 06-20-2021 Hepatic function panel Michelle Coelho DO Work Phone: Start: 06-19-2021 Gluc bld [...] on above: Performed By: #### C /BLT ####[facility] [place] [id number] [place], [place] [id number] Start: 06-19-2021 Gluc bld gluc mntr d ev cleared fda spec home use Ruth Soni DO Work Phone: Start: 06-19-2021 Radiologic exam ches t single view Elijah Allred MD Work Phone: Start: 06-19-2021 Smr prim src gram/gi emsa stain bct fungi/cell Jethro Hutchison MD Work Phone: Start: 06-19-2021 BASIC METABOLIC PANE L W/ REFLEX TO MG FOR LOW K Michelle Coelho DO Work Phone: Start: 06-19-2021 End: 06-19-2021 Calcium ionized Michelle Coelho DO Work Phone: Start: 06-19-2021 Hepatic function panel Michelle Coelho DO Work Phone: Start: 06-19-2021 BLOOD GAS, ARTERIAL Ambrosio Allred MD Work Phone: Start: 06-19-2021 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 CLINICAL BEDSIDE SWALLOW EVALUATION & TREATMENT Anastacia [...] ev cleared fda spec home use Stephen Alexa Issa DO Work Phone: Start: 06-18-2021 Radiologic exam [...] ev cleared fda spec home use Stephen Alexa Issa DO Work Phone: Start: 06-17-2021 Gluc bld gluc mntr d ev cleared fda spec home use Ruth Soni DO Work Phone: Start: 06-17-2021 Gluc bld gluc mntr d ev cleared fda spec home use Ruthjustino Soni DO Work Phone: Start: 06-17-2021 Radiologic exam ches t single view Presley Shelton MD Work Phone: Start: 06-17-2021 Gluc bld gluc mntr d ev cleared fda spec home use Ruth Valladaresann DO Work Phone: Start: 06-17-2021 BASIC METABOLIC PANE L W/ REFLEX TO MG FOR LOW K Michelle DO Work Phone: Start: 06-17-2021 End: 06-17-2021 Calcium ionized Michelle DO Work Phone: Start: 06-17-2021 Hepatic function panel Michelle DO Work Phone: Start: 06-16-2021 Gluc bld gluc mntr d ev cleared fda spec home use Stephen Christein DO Work Phone: Start: 06-16-2021 Sodium serum plasma or whole blood DO Work Phone: Start: 06-16-2021 Gluc bld gluc mntr d ev cleared fda spec home use Stephen Christien DO Work Phone: Start: 06-16-2021 MRSA BY PCR Gino john MD Work Phone: Start: 06-16-2021 Urnls dip stick/tabl et rgnt auto w/o microscopy Elijah Allred MD Work Phone: Start: 06-16-2021 Procalcitonin (pct) Lamonte Yun MD Work Phone: Start: 06-16-2021 Gluc bld gluc mntr d ev cleared fda spec home use Stephen Christien DO Work Phone: Start: 06-16-2021 Radiologic exam ches t single view Presley Shelton MD Work Phone: Start: 06-15-2021 End: 06-16-2021 Culture bacterial quanttative colony count urine Jethro Hutchison MD Work Phone: Start: 06-15-2021 BLOOD GAS, ARTERIAL Tar a Valentino Alba MD Work Phone: Start: 06-15-2021 CULTURE, BLOOD 1 Nancie Freire MD Work Phone: Start: 06-15-2021 BASIC METABOLIC PANE L W/ REFLEX TO MG FOR LOW K Michelle DO Work Phone: Start: 06-15-2021 End: 06-16-2021 Calcium ionized Michelle DO Work Phone: Start: 06-15-2021 Hepatic function panel Michelle DO Work Phone: Start: 06-15-2021 Radiologic exam ches t single view Jethro Hutchison MD Work Phone: Start: 06-15-2021 Gluc bld gluc mntr d ev cleared fda spec home use Stephen Parsons DO Work Phone: Start: 06-15-2021 Gluc bld gluc mntr d ev cleared fda spec home use Ruth Soni DO Work Phone: Start: 06-15-2021 Dup-scan xtr veins c omplete bilateral study Michelle Coelho DO Work Phone: Start: 06-15-2021 Smr prim src gram/gi emsa stain bct fungi/cell Elijah Walker MD Work Phone: Start: 06-15-2021 Gluc bld gluc mntr d ev cleared fda spec home use Ruth Soni DO Work Phone: Start: 06-15-2021 Radiologic exam ches t single view Presley Shelton MD Work Phone: Start: 06-15-2021 BASIC METABOLIC PANE L W/ REFLEX TO MG FOR LOW K Michelle Coelho DO Work Phone: Start: 06-15-2021 BLOOD GAS, ARTERIAL Tif justino Soni DO Work Phone: Start: 06-14-2021 End: 06-15-2021 Calcium ionized Michelle Coelho DO Work Phone: Start: 06-15-2021 Hepatic function panel Michelle Coelho DO Work Phone: Start: 06-14-2021 Gluc bld gluc mntr d ev cleared fda spec home use Ruthjarod Soni DO Work Phone: Start: 06-14-2021 Gluc bld gluc mntr d ev cleared fda spec home use Stephen Parsons DO Work Phone: Start: 06-14-2021 Gluc bld gluc mntr d ev cleared fda spec home use Stephen Parsons DO Work Phone: Start: 06-14-2021 Gluc bld gluc mntr d ev cleared fda spec home use Stephen Alexa Issa DO Work Phone: Start: 06-14-2021 Radiologic exam ches t single view Presley Shelton MD Work Phone: Start: 06-14-2021 BASIC METABOLIC PANE L W/ REFLEX TO MG FOR LOW K Michelle DO Work Phone: Start: 06-14-2021 BLOOD GAS, ARTERIAL Tif justino Soni DO Work Phone: Start: 06-14-2021 End: 06-14-2021 Calcium ionized Michelle DO Work Phone: Start: 06-14-2021 Hepatic function panel Michelle DO Work Phone: Start: 06-13-2021 End: 06-13-2021 Sodium serum plasma or whole blood Presley Shelton MD Work Phone: Start: 06-13-2021 BLOOD GAS, ARTERIAL Tif justino Soni DO Work Phone: Start: 06-13-2021 Sodium [...] Work Phone: Start: 06-13-2021 BLOOD GAS, ARTERIAL Tif justino Soni DO Work Phone: Start: 06-13-2021 End: 06-13-2021 Calcium ionized Michelle Coelho DO Work Phone: Start: 06-13-2021 Hepatic function panel Michelle DO Work Phone: Start: 06-12-2021 Gluc bld gluc mntr d ev cleared fda spec home use Stephen Alexa Christien DO Work Phone: Start: 06-12-2021 End: 06-12-2021 [...] Phone: Start: 06-12-2021 Hepatic function panel Michelle Coelho DO Work Phone: Start: 06-12-2021 Manual Differential panel - Blood Presley Shelton MD Work Phone: Start: 06-11-2021 Gluc bld gluc mntr d ev cleared fda spec home use Stephen Parsons DO Work Phone: Start: 06-11-2021 BLOOD GAS, [...] LOW K Michelle DO Work Phone: Start: 06-11-2021 BLOOD GAS, ARTERIAL Tif justino Soni DO Work Phone: Start: 06-11-2021 End: 06-11-2021 Calcium ionized Michelle DO Work Phone: Start: 06-11-2021 Hepatic function panel Michelle DO Work Phone: Start: 06-10-2021 Gluc bld gluc mntr d ev cleared fda spec home use Stephen Parsons DO Work Phone: Start: 06-10-2021 BLOOD GAS, ARTERIAL Tif justino Soni DO Work Phone: Start: 06-10-2021 Dup-scan xtr veins c omplete bilateral study Presley Shelton MD Work Phone: Start: 06-10-2021 Gluc bld gluc mntr d ev cleared fda spec home use Ruth Soni DO Work Phone: Start: 06-10-2021 Gluc bld gluc mntr d ev cleared fda spec home use Stephen Alexa Issa DO Work Phone: Start: 06-10-2021 Radiologic exam ches t single view Presley Shelton MD Work Phone: Start: 06-10-2021 BASIC METABOLIC PANE L W/ REFLEX TO MG FOR LOW K Michelle Coelho DO Work Phone: Start: 06-10-2021 BLOOD GAS, ARTERIAL Rhea Soni DO Work Phone: Start: 06-10-2021 Calcium ionized Michelle Peacock mmers DO Work Phone: Start: 06-10-2021 Hepatic function panel Michelle DO Work Phone: Start: 06-09-2021 Gluc bld gluc mntr d ev cleared fda spec home use Ruth Soni DO Work Phone: Start: 06-09-2021 BLOOD GAS, ARTERIAL Rhea Soni DO Work Phone: Start: 06-09-2021 Gluc bld gluc mntr d ev cleared fda spec home use Stephen Alexa Christien DO Work Phone: Start: 06-09-2021 Gluc bld gluc mntr d ev cleared fda spec home use Ruth Soni DO Work Phone: Start: 06-09-2021 BASIC METABOLIC PANE L W/ REFLEX TO MG FOR LOW K Michelle Coelho DO Work Phone: Start: 06-09-2021 BLOOD GAS, ARTERIAL Rhea Soni DO Work Phone: Start: 06-09-2021 End: 06-09-2021 Calcium ionized Michelle Coelho DO Work Phone: Start: 06-09-2021 Hepatic function panel Michelle Coelho DO Work Phone: Start: 06-09-2021 Radiologic exam ches t single view Presley Shelton MD Work Phone: Start: 06-08-2021 Gluc bld gluc mntr d ev cleared fda spec home use Stephen Alexa Issa DO Work Phone: Start: 06-08-2021 BLOOD GAS, [...] LOW K Michelle DO Work Phone: Start: 06-08-2021 BLOOD GAS, ARTERIAL Mat alvina Boyle MD Work Phone: Start: 06-08-2021 End: 06-08-2021 Calcium ionized Michelle Coelho DO Work Phone: Start: 06-08-2021 Hepatic function panel Michelle DO Work Phone: Start: 06-07-2021 BLOOD GAS, [...] LOW K Michelle DO Work Phone: Start: 06-07-2021 BLOOD GAS, ARTERIAL Mat alvina Boyle MD Work Phone: Start: 06-07-2021 Calcium ionized Michelle Peacock ers DO Work Phone: Start: 06-07-2021 Hepatic function panel Michelle DO Work Phone: Start: 06-06-2021 Gluc bld gluc mntr d ev cleared fda spec home use Ruth Soni DO Work Phone: Start: 06-06-2021 Assay of troponin quantitative Presley Shelton MD Work Phone: Start: 06-06-2021 BLOOD GAS, ARTERIAL Mat alvina Boyle MD Work Phone: Start: 06-06-2021 Gluc bld gluc mntr d ev cleared fda spec home use Stephen Christien DO Work Phone: Start: 06-06-2021 BLOOD GAS, ARTERIAL Mat alvina Boyle MD Work Phone: Start: 06-06-2021 Gluc bld gluc mntr d ev cleared fda spec home use Stephen Christien DO Work Phone: Start: 06-06-2021 Gluc bld gluc mntr d ev cleared fda spec home use Stephen Christien DO Work Phone: Start: 06-06-2021 Radiologic exam ches t single view Presley Shelton MD Work Phone: Start: 06-06-2021 BASIC METABOLIC PANE L W/ REFLEX TO MG FOR LOW K Michelle Coelho DO Work Phone: Start: 06-06-2021 End: 06-06-2021 BLOOD GAS, ARTERIAL Jeffrey Boyle MD Work Phone: Start: 06-06-2021 Calcium ionized Michelle Peacock mmers DO Work Phone: Start: 06-06-2021 Hepatic function panel Michelle Coelho DO Work Phone: Start: 06-06-2021 Gluc bld gluc mntr d ev cleared fda spec home use Ruth Soni DO Work Phone: Start: 06-05-2021 Gluc bld gluc mntr d ev cleared fda spec home use Stephen Alexa Issa DO Work Phone: Start: 06-05-2021 Gluc bld gluc mntr d ev cleared fda spec home use Stephen Alexa Issa DO Work Phone: Start: 06-05-2021 BLOOD GAS, ARTERIAL Mat alvina Boyle MD Work Phone: Start: 06-05-2021 Gluc bld gluc mntr d ev cleared fda spec home use Ruth Soni DO Work Phone: Start: 06-05-2021 BLOOD GAS, ARTERIAL Mat alvina Boyle MD Work Phone: Start: 06-05-2021 Procalcitonin (pct) Bra katelynn Shelton MD Work Phone: Start: 06-05-2021 Gluc bld gluc mntr d ev cleared fda spec home use Ruth Soni DO Work Phone: Start: 06-05-2021 Radiologic exam ches t single view Presley Shelton MD Work Phone: Start: 06-05-2021 BASIC METABOLIC PANE L W/ REFLEX TO MG FOR LOW K Michellejerica Coelho DO Work Phone: Start: 06-05-2021 End: 06-05-2021 BLOOD GAS, ARTERIAL Jeffrey Boyle MD Work Phone: Start: 06-05-2021 Calcium ionized Michelle Bonnie lauren DO Work Phone: Start: 06-05-2021 Hepatic function panel Michelle Coelho DO Work Phone: Start: 06-05-2021 Iaad ia hepatitis b surface antigen Fina Desir MD Work Phone: Start: 06-05-2021 Ecg routine ecg w/le ast 12 lds w/i&r Jeffrey Boyle MD Work Phone: Start: 0 Gluc bld gluc mntr d ev cleared fda spec home use Ruth Soni DO Work Phone: Start: 06-04-2021 BLOOD GAS, ARTERIAL Mat alvina Boyle MD Work Phone: Start: Gluc bld gluc mntr d ev cleared fda spec home use Stephen Parsons DO Work Phone: Start: 06-04-2021 BLOOD GAS, ARTERIAL Mat alvina Boyle MD Work Phone: Start: 0 Gluc bld gluc mntr d ev cleared [...] REFLEX TO MG FOR LOW K Michelle Coelho DO Work Phone: Start: 06-04-2021 BLOOD GAS, ARTERIAL Mat alvina Boyle MD Work Phone: Start: 06-04-2021 Calcium ionized Michelle Peacock mmers DO Work Phone: Start: 06-04-2021 Hepatic [...] REFLEX TO MG FOR LOW K Michelle Coelho DO Work Phone: Start: 06-03-2021 Calcium ionized Michelle Peacock mmers DO Work Phone: Start: 06-03-2021 Culture [...] Work Phone: Start: 06-03-2021 C-reactive protein Jb De aL Rosa PA-C Work Phone: Start: 06-03-2021 Comprehensive metabo lic panel Flash De La Rosa PA-C Work Phone: Start: 06-03-2021 Lipid 1996 panel - S poppy or Plasma Helder Tavera MD Work Phone: Start: 06-03-2021 Blood count hematocrit Flash De La Rosa PA-C Work Phone: Start: 06-02-2021 Blood count hematocrit Flash De La Rosa PA-C Work Phone: Start: 06-02-2021 End: 06-02-2021 Iaad ia mult step method nos each organism Flash De La Rosa PA-C Work Phone: Start: 06-02-2021 End: 07-04-2021 Assay of ferritin Flash De La Rosa PA-C Work Phone: Start: 06-02-2021 PROCEDURE - CENTRAL LINE WITH OR WITHOUT PAC Al Stack MICROCHIP SPECIALIST-AUTO MECHANIC APPRENTICE Work Phone: Start: 06-02-2021 Radiologic exam ches [...] Radex foot complete minimum 3 views Alondra Rosenberg PA-C Work Phone: Start: 05-17-2021 End: 05-20-2021 Radiologic exam chest 2 views Alondra ZABALA-C Work Phone: Start: 04-05-2021 Echo tthrc r-t 2d w/wom-mode compl spec&colr d Alondra ZABALA-C Work Phone: Start: 03-22-2021 Lipid 1996 panel - S poppy or Plasma Alondra ZABALA-Jennifer Work Phone: Start: 03-21-2021 End: 03-21-2021 Lab findings surveillance Nora Webb jl [employer]ENN[employer] PROFESSIONAL Comment on above: 91 Start: 03-21-2021 End: 03-21-2021 Lipid panel Nora Palma Jeannette PN Comment on above: TC 148, HDL 46, LDL 90 Start: 03-14-2021 End: 05-09-2021 TTE w or wo fol wcon,Doppler Alondra Rosenberg PA-C Work Phone: Start: 03-14-2021 End: 03-14-2021 Thyrotropin [Units/volume] in Serum or Plasma Nora Palam [employer]ENN[employer] PROFESSIONAL Comment on above: 2.90 Start: 06-01-2020 Ct abdomen & pelvis w/o contrast material [employer] Work Phone: Start: 06-01-2020 Basic metabolic pane l calcium total Peter [employer] Work Phone: Start: 06-01-2020 Blood count complete automated [employer] Work Phone: Start: 06-01-2020 Urine test visual color cmprsn meths [employer] Work Phone: Start: 06-01-2020 Urnls dip stick/tabl et rgnt auto w/o microscopy [employer] Work Phone: Start: 11-30-2005 End: 11-30-2005 Laparoscopic cholecystectomy Jazlyn Marie LPN H/O slipped capital femoral epiphysis (SCFE) Jazlyn Marie LPN Comment on above: pins placed in [employer] H/O slipped capital femoral epiphysis (SCFE) Maxine Carlos Comment on above: pins placed in [employer] Laparoscopic cholecystectomy Referring Provider Unknown Operative procedure on foot Referring Provider Unknown Operative procedure on hip R eferring Provider Unknown Plan of Treatment Date Care Activity Detail Author Start: 06-03-2026 Lipid panel Lipid Panel [facility] Start: 03-22-2026 Fasting lipid profile LIPID SCREENIN [facility] Start: 06-26-2025 Basic metabolic pane l calcium total BMP w/ GFR (F) (41942) Start: 26-Jun-2025 13:49-04:00 [facility] Start: 06-23-2025 Basic metabolic pane l calcium total BMP w/ GFR (F) (87635) Start: 23-Jun-2025 15:23-04:00 Request [facility]; [facility] Start: 06-23-2025 Patient encounter procedure Medical; Hospital F/U - [facility] 06/16, cellulits, blood inf [facility] Start: 23-Jun-2025 14:40-04:00 RAYNE Rosenberg Appointment Request [facility] Start: 06-16-2025 Patient discharge [facility] Start: 06-14-2025 [facility] Start: 06-11-2025 Bacteria identified in Blood by Culture Blood Culture [facility] Start: 06-11-2025 Bacteria identified in Urine by Culture Urine Culture [facility] Start: 06-11-2025 Following clinical p athway protocol [facility] Start: 06-11-2025 Ambulation without limitation [facility] Start: 06-11-2025 Assessment of risk o f venous thromboembolism [facility] Start: 06-11-2025 Consultation for treatment [facility] Start: 06-11-2025 Inhalation therapy procedure [facility] Start: 06-11-2025 Insertion of cathete r into peripheral vein [facility] Start: 06-11-2025 Measuring intake and output [facility] Start: 06-11-2025 Providing care accor ding to standard [facility] Start: 06-11-2025 Referral to occupati onal therapist [facility] Start: 06-11-2025 Referral to service [facility] Start: 06-11-2025 [facility] Start: 06-11-2025 Verification routine [facility] Start: 06-11-2025 Hospital admission, emergency, from emergency room, medical nature [facility] Start: 06-11-2025 Admission procedure [facility] Start: 06-11-2025 Patient referral to dietitian [facility] Start: 06-10-2025 End: 06-11-2025 [facility] Start: 06-09-2025 Hemoglobin glycosyla alek a1c HEMOGLOBIN A1C* ([id number]) Start: 09-Jun-2025 14:09-04:00 Request [employer] [facility] [employer] [facility] Start: 06-09-2025 Assay of thyroid stimulating hormone tsh TSH W/ REFL FREE T4 ([id number]) ([id number]) Start: 09-Jun-2025 14:09-04:00 Request [facility] [employer] [facility] Start: 06-09-2025 Lipid panel LIPID PANEL ([id number]) Start: 09-Jun-2025 14:09-04:00 Request [employer] [facility] [employer] Start: 06-09-2025 Comprehensive metabo lic panel CMP w/ GFR* ([id number]) Start: 09-Jun-2025 14:08-04:00 Request [employer] [facility] [employer] Start: 06-09-2025 Blood count complete auto&auto difrntl wbc CBC, PLATELETS & AUT DIFF (F) (03614) Start: 09-Jun-2025 14:08-04:00 Request [employer]; [employer]. Start: 06-09-2025 Patient encounter procedure Medical; EXTENDED RTN - htn/other issues [employer]. Start: 09-Jun-2025 13:10-04:00 RAYNE Rosenberg Appointment Request [employer]. Start: 02-09-2025 End: 02-09-2025 Patient encounter procedure 02/09/2025 9:30 AM EDT Office Visit [facility] [address] [place] [address] Yamile Jo, [address] [place] [phone] [facility] Start: 07-31-2024 COVID-19 Vaccine ( season) COVID-19 Vaccine ( season) [facility] Start: 07-31-2024 Influenza vaccination Influenza Vacc ine (#1) [facility] Start: 06-24-2024 Lipid panel LIPID PANEL (8 0061) Start: 24-Jun-2024 Request [employer] Start: 06-24-2024 Comprehensive metabo lic panel [employer]. Start: 06-24-2024 Nursing evaluation o f patient and report Medical; Nurse visit - CMP mjp [employer]. Start: 24-Jun-2024 10:30-04:00 NURSE, FLOAT Appointment Request [employer]. Start: 06-14-2024 Lipid panel LIPID PANEL (8 0061) Start: 14-Jun-2024 Request [employer]; [employer]. Start: 06-13-2024 Cyanocobalamin vitam in b-12 VITAMIN B-12 SERUM (02516) Start: 13-Jun-2024 15:49-04:00 Request [employer]; [employer]. Start: 06-13-2024 Hemoglobin glycosyla alek a1c HEMOGLOBIN A1C* (89320) Start: 13-Jun-2024 15:48-04:00 Request [employer] Start: 06-13-2024 Assay of blood/uric acid URIC ACID BLOOD (00415) Start: 13-Jun-2024 15:48-04:00 Request [employer] Start: 06-13-2024 Assay of thyroid stimulating hormone tsh TSH W/ REFL FREE T4 (76861,50453) (03726) Start: 13-Jun-2024 15:48-04:00 Request [employer] Start: 06-13-2024 Comprehensive metabo lic panel CMP w/ GFR* (57805) Start: 13-Jun-2024 15:48-04:00 Request [employer] Start: 06-13-2024 Blood count complete auto&auto difrntl wbc CBC, PLATELETS & AUT DIFF (F) (99536) Start: 13-Jun-2024 15:48-04:00 Request [employer]; [employer]. Start: 06-13-2024 Sedimentation rate r bc automated ESR (SED RATE) (39703) Start: 13-Jun-2024 15:47-04:00 Request [employer].; [employer] Start: 06-13-2024 C-reactive protein C-REACTIVE PROTEIN (24551) Start: 13-Jun-2024 15:47-04:00 Request [employer] Start: 06-13-2024 Antinuclear antibodies liz LIZ TITER AND PATTERN (21275) Start: 13-Jun-2024 15:47-04:00 Request [employer]; [employer]. Start: 06-03-2024 Diabetes mellitus screening Diabetes Screening [facility] Start: 05-12-2024 Patient encounter procedure Medical; [facility] Start: 12-May-2024 10:00-04:00 RAYNE Rosenberg Appointment Request [employer] Start: 04-15-2024 Patient encounter procedure Medical; [facility] 04/08, bilat [facility]ulitis[facility] Start: 15-Apr-2024 10:30-04:00 RAYNE Rosenberg Appointment Request [employer] Start: 04-08-2024 Patient discharge [facility] Start: 04-06-2024 Consultation [facility] Start: 04-05-2024 [facility] Start: 04-04-2024 Following clinical p athway protocol [facility] Start: 04-04-2024 Admission procedure [facility] Start: 04-04-2024 Hospital admission, emergency, from emergency room, medical nature [facility] Start: 04-04-2024 Blood culture [facility] Start: 04-04-2024 Bacteria identified in Blood by Culture Blood Culture [facility] Start: 04-01-2024 Cyanocobalamin vitam in b-12 VITAMIN B-12 SERUM (63556) Start: 01-Apr-2024 11:48-04:00 Request IVFXPERT; [employer] Start: 04-01-2024 Assay of thyroid stimulating hormone tsh TSH W/ REFL FREE T4 (69494,70730) (81899) Start: 01-Apr-2024 11:48-04:00 Request [employer]; [employer]. Start: 04-01-2024 Hemoglobin glycosyla alek a1c HEMOGLOBIN A1C* (92962) Start: 01-Apr-2024 11:48-04:00 Request [employer]; [employer]. Start: 04-01-2024 Lipid panel LIPID PANEL (8 0061) Start: 01-Apr-2024 11:48-04:00 Request [employer]; [employer]. Start: 04-01-2024 Comprehensive metabo lic panel CMP w/ GFR* (05065) Start: 01-Apr-2024 11:48-04:00 Request [employer]; [employer]. Start: 04-01-2024 Blood count complete auto&auto difrntl wbc CBC, PLATELETS & AUT DIFF (F) (31082) Start: 01-Apr-2024 11:48-04:00 Request [employer]; [employer]. Start: 04-01-2024 Patient encounter procedure Medical; EXTENDED RTN - f/u [employer] Start: 01-Apr-2024 10:50-04:00 RAYNE Rosenberg Appointment Request [employer]. Start: 08-21-2023 Patient discharge [facility] Start: 08-18-2023 Consultation [facility] Start: 08-18-2023 Blood chemistry [facility] Start: 08-18-2023 Following clinical p athway protocol [facility] Start: 08-18-2023 [facility] Start: 08-18-2023 Assessment of risk o f venous thromboembolism [facility] Start: 08-18-2023 Insertion of cathete r into peripheral vein [facility] Start: 08-18-2023 Providing care accor ding to standard [facility] Start: 08-18-2023 Provision of activit y privileges [facility] Start: 08-18-2023 [facility] Start: 08-18-2023 Verification routine [facility] Start: 08-18-2023 Admission procedure [facility] Start: 08-18-2023 Patient referral to dietitian [facility] Start: 08-17-2023 Blood culture [facility] Start: 08-17-2023 [facility] Start: 08-17-2023 Bacteria identified in Blood by Culture Blood Culture [facility] Start: 07-31-2023 Influenza vaccination Influenza Vacc ine (#1) [facility] Start: 07-31-2023 Patient discharge [facility] Start: 07-30-2023 Dual pressure sponta neous ventilation support [facility] Start: 07-30-2023 [facility] Start: 07-29-2023 Dual pressure sponta neous ventilation support [facility] Start: 07-28-2023 Dual pressure sponta neous ventilation support [facility] Start: 07-27-2023 Dual pressure sponta neous ventilation support [facility] Start: 07-27-2023 Consultation [facility] Start: 07-26-2023 Dual pressure sponta neous ventilation support [facility] Start: 07-25-2023 End: 07-26-2023 Dual pressure spontaneous ventilation support [facility] Start: 07-25-2023 [facility] Start: 07-25-2023 [facility] Start: 07-25-2023 Thyroid stimulating hormone measurement [facility] Start: 07-25-2023 [facility] Start: 07-25-2023 Following clinical p athway protocol [facility] Start: 07-25-2023 Assessment of risk o f venous thromboembolism [facility] Start: 07-25-2023 Catheterization of vein [facility] Start: 07-25-2023 Consultation for treatment [facility] Start: 07-25-2023 Continuous pulse oximetry [facility] Start: 07-25-2023 Elevation of affecte d extremity [facility] Start: 07-25-2023 Fluid intake encouragement [facility] Start: 07-25-2023 Incentive spirometry [facility] Start: 07-25-2023 Insertion of cathete r into peripheral vein [facility] Start: 07-25-2023 Oxygen therapy [facility] Start: 07-25-2023 Providing care accor ding to standard [facility] Start: 07-25-2023 Provision of activit y privileges [facility] Start: 07-25-2023 Referral to service [facility] Start: 07-25-2023 [facility] Start: 07-25-2023 Bacterial nucleic ac id assay [facility] Start: 07-25-2023 [facility] Start: 07-25-2023 Verification routine [facility] Start: 07-25-2023 Admission procedure [facility] Start: 07-25-2023 Patient referral to dietitian [facility] Start: 07-08-2023 Bacteria identified in Blood by Culture Blood Culture [facility] Start: 07-08-2023 Blood culture [facility] Start: 02-26-2023 ROLY, Provider : Peggy Zepeda, Status: Pen, Time: 1:30 PM VIRFUVANTIONETTE, Provider: Pegyg Zepeda, Status: Pen, Time: 1:30 PM [id number] DO Work Phone: Start: 02-09-2023 VIRRICHARD, Provider : YOLIS OSHEA MS, RD, Status: Pen, Time: 6:30 PM [facility], Provider: YOLIS OSHEA MS, RD, Status: Pen, Time: 6:30 PM [facility] DO Work Phone: Start: 02-05-2023 Zoster Vaccines (2 of 2) Zoste r Vaccines (2 of 2) [facility] [employer] Start: 07-03-2022 Creatinine measurement [employer] Work Phone: Start: 07-03-2022 [employer] Work Phone: Start: 06-03-2022 Potassium [Moles/vol ume] in Serum or Plasma POTASSIUM [facility] Start: 02-21-2022 End: 04-07-2022 Myocardial spect multiple studies Lexiscan Cardiolite Stress Test (25856) Date: 21-Feb-2022 Comments: Nuclear stress test if not contraindicated. [facility] Comment on above: Nuclear stress test if not contraindicated. Start: 08-12-2021 Brncdilat rspse spmt ry pre&post-brncdilat admn PFT Protocol (02612) -- not in office Start: 12-Aug-2021 Intent [employer]; [facility] Start: 07-31-2021 Influenza vaccination [facility] [employer] [facility] Start: 07-31-2021 [facility]: Start: 07-31-2020 Influenza vaccination Flu vaccine (# 1) [place] Start: 02-12-2018 Colonoscopy COLORECTAL CAN CER SCREENING DISCUSSION [facility] Start: 02-12-2018 Screening for malign ant neoplasm of breast [facility] Work Phone: Start: 02-12-2018 Screening for malign ant neoplasm of colon Flexible sigmoidoscopy [facility] Start: 02-12-2018 Zoster vaccine hzv l emmy for subcutaneous use ZOSTER (SHINGLES) VACCINE (1 of 2) [facility] [employer] [facility] Start: 02-12-2018 [facility] Work Phone: Start: 07-27-2015 Screening mammography MAMMOGRA M SCREENING DISCUSSION [facility] Start: 02-12-2013 Colonoscopy COLORECTAL CAN CER SCREENING DISCUSSION [facility] [employer] [facility] Start: 02-12-2013 Screening for malign ant neoplasm of colon [facility] Work Phone: Start: 2008 Screening for malign ant neoplasm of breast Mammogram [facility] Start: 02-12-1998 Screening for malign ant neoplasm of cervix [facility] Start: 02-12-1989 Screening for malign ant neoplasm of cervix [facility] Start: 02-12-1987 DTaP/Tdap/Td Vaccine s (1 - Tdap) DTaP/Tdap/Td Vaccines (1 - Tdap) [facility] Start: 02-12-1987 Third diphtheria, te tanus and acellular pertussis (DTaP) vaccination TDAP (ADULT) [facility] Start: 02-12-1987 [facility] Work [facility]: Start: 02-12-1986 Hepatitis C screening Hepatitis C Sc reening [facility] Start: 02-12-1986 Tetanus vaccination TETANUS [facility] Start: 1984 COVID-19 VACCINE (1) COVID-19 VACCIN E (1) [facility] Start: 02-12-1983 HIV screening [facility] Start: 02-12-1981 HIV screening HIV SCREENING DISCUSSION [facility] Start: 1980 COVID-19 VACCINE (1) COVID-19 VACCIN E (1) [facility] Start: 1980 Depression Screening [facility] Start: 1980 [employer] Work Phone: Start: 02-12-1974 [facility] Work Phone: Start: 02-12-1973 COVID-19 VACCINE (1) COVID-19 VACCIN E (1) [facility] Start: 02-12-1971 History and physical examination, annual for health maintenance Wellness Visit [facility] Start: 02-12-1969 MMR Vaccines (1 of 1 - Standard series) MMR Vaccines (1 of 1 - Standard series) [facility] Start: 1968 COVID-19 Vaccine (#1) COVID-19 Vacci ne (#1) [facility] Start: 1968 Examination of skin Derm Melan ambrosio Skin Check [facility] Start: 1968 Hepatitis B Vaccines (1 of 3 - 3-dose series) Hepatitis B Vaccines (1 of 3 - 3-dose series) [facility] Start: 1968 Hepatitis C antibody , confirmatory test HEPATITIS C VIRUS SCREENING [facility] Start: 1968 Screening for malign ant neoplasm of colon [facility] Start: 1968 Tetanus vaccination Tetanus: Every 1 0yrs [facility] [employer] [facility] Work Phone: Alanine aminotransfe rase [Enzymatic activity/volume] in Serum or Plasma [facility] Albumin [Mass/volume ] in Serum or Plasma [facility] Alkaline phosphatase [Enzymatic activity/volume] in Serum or Plasma [facility] End: 11-11-2025 LIZ measurement LIZ Lab Routine Positive LIZ (antinuclear antibody) 1 Occurrences starting 11/11/2024 until 11/11/2025 [facility] Work Phone: Comment on above: 1 Occurrences starti ng 11/11/2024 until 11/11/2025 Anion gap measurement [facility] Anion gap measurement [facility] End: 11-11-2025 Antibody to single and double stranded DNA measurement Anti-DNA Double-Stranded Antibody Lab Routine Positive LIZ (antinuclear antibody) 1 Occurrences starting 11/11/2024 until 11/11/2025 [facility] Comment on above: 1 Occurrences starti ng 11/11/2024 until 11/11/2025 Aspartate aminotrans ferase [Enzymatic activity/volume] in Serum or Plasma [facility] Bacteria identified in Blood by Culture [facility] End: 06-15-2021 Basic metabolic 2000 panel - Serum or Plasma [facility] Work Phone: Basic metabolic 1999 panel - Serum or Plasma [facility] Work Phone: Bilirubin, total measurement [facility] BIPAP [facility] Work Phone: Blood Gas, Arterial [facility] Work Phone: BUN/Creatinine ratio [facility] BUN/Creatinine ratio [facility] End: 11-11-2025 C reactive protein [Mass/volume] in Serum or Plasma CRP, Inflammation Lab Routine Positive LIZ (antinuclear antibody) 1 Occurrences starting 11/11/2024 until 11/11/2025 [facility] Comment on above: 1 Occurrences starti ng 11/11/2024 until 11/11/2025 End: 11-11-2025 C4 complement assay C4 Complement Lab Routine Positive LIZ (antinuclear antibody) 1 Occurrences starting 11/11/2024 until 11/11/2025 [facility] Comment on above: 1 Occurrences starti ng 11/11/2024 until 11/11/2025 End: 11-11-2025 C>3< complement assay C3 Complement Lab Routine Positive ILZ (antinuclear antibody) 1 Occurrences starting 11/11/2024 until 11/11/2025 [facility] Comment on above: 1 Occurrences starti ng 11/11/2024 until 11/11/2025 Calcium [Mass/volume ] in Serum or Plasma [facility] Calcium [Mass/volume ] in Serum or Plasma [facility] Carbon dioxide, tota l [Moles/volume] in Serum or Plasma [facility] Carbon dioxide, tota l [Moles/volume] in Serum or Plasma [facility] CBC W Auto Different ial panel - Blood [facility] Work Phone: End: 06-15-2021 CBC W Auto Differential panel - Blood [facility] Work Phone: Chloride [Moles/volu me] in Serum or Plasma [facility] Chloride [Moles/volu me] in Serum or Plasma [facility] End: 11-11-2025 Chromatin Antibodies Chromatin Antibodies Lab Routine Positive LIZ (antinuclear antibody) 1 Occurrences starting 11/11/2024 until 11/11/2025 [facility] Comment on above: 1 Occurrences starti ng 11/11/2024 until 11/11/2025 End: 11-11-2025 Complete blood count with white cell differential, manual CBC and Differential Lab Routine Positive LIZ (antinuclear antibody) 1 Occurrences starting 11/11/2024 until 11/11/2025 [facility] Comment on above: 1 Occurrences starti ng 11/11/2024 until 11/11/2025 End: 11-11-2025 Creatinine [Mass/volume] in Serum or Plasma Creatinine, serum Lab Routine Positive LIZ (antinuclear antibody) 1 Occurrences starting 11/11/2024 until 11/11/2025 [facility] Comment on above: 1 Occurrences starti ng 11/11/2024 until 11/11/2025 Creatinine [Moles/vo lume] in Serum or Plasma [facility] Creatinine [Moles/vo lume] in Serum or Plasma [facility] End: 11-11-2025 Erythrocyte sedimentation rate Sedimentation Rate Lab Routine Positive LIZ (antinuclear antibody) 1 Occurrences starting 11/11/2024 until 11/11/2025 [facility] Comment on above: 1 Occurrences starti ng 11/11/2024 until 11/11/2025 End: 11-11-2025 Extractable nuclear antigen antibody screening test NAVYA Screen (Ro52,Ro60,SSB,SM,MILLER [place],S CL-70,JO1) Lab Routine Positive LIZ (antinuclear antibody) 1 Occurrences starting 11/11/2024 until 11/11/2025 [facility] Comment on above: 1 Occurrences starti ng 11/11/2024 until 11/11/2025 Glucose [Mass/volume ] in Serum or Plasma [facility] Work Phone: Glucose [Mass/volume ] in Serum or Plasma [facility] Glucose [Mass/volume ] in Serum or Plasma [facility] Hematocrit [Volume Fraction] of Blood [facility] Hematocrit [Volume Fraction] of Blood [facility] Hemoglobin [Mass/vol ume] in Blood [facility] Hemoglobin [Mass/vol ume] in Blood [facility] Hemoglobin A1c/Hemoglobin.total in Blood [facility] Hepatic function 200 0 panel - Serum or Plasma [facility] Work Phone: End: 11-11-2025 Hepatic function 2000 panel - Serum or Plasma Hepatic Function Panel Lab Routine Positive LIZ (antinuclear antibody) 1 Occurrences starting 11/11/2024 until 11/11/2025 [facility] Comment on above: 1 Occurrences starti ng 11/11/2024 until 11/11/2025 Leukocytes [#/volume ] in Blood [facility] Leukocytes [#/volume ] in Blood [facility] Magnesium [Mass/volu me] in Serum or Plasma [facility] Work Phone: Magnesium [Mass/volu me] in Serum or Plasma [facility] Mean corpuscular hemoglobin concentration determination [facility] Mean corpuscular hemoglobin concentration determination [facility] Mean corpuscular hemoglobin determination [facility] Mean corpuscular hemoglobin determination [facility] Measurement of renal function [facility] Measurement of renal function [facility] Neutrophil count [facility] Neutrophil count [facility] Neutrophil percent differential count [facility] Neutrophil percent differential count [facility] End: 06-26-2021 Osmolality of Serum or Plasma [facility] Work Phone: Osmolality of Serum or Plasma [facility] Work Phone: Osmolality, Urine [facility] Work Phone: Oxygen therapy [[facility]] [facility] Work Phone: Patient Education [facility] Work Phone: Patient referral [facility] Work Phone: End: 06-19-2021 PBP2A TEST FOR [facility] Work Phone: PBP2A TEST FOR [facility] Work Phone: Phosphate [Mass/volu me] in Serum or Plasma [facility] Work Phone: Platelets [#/volume] in Blood [facility] Platelets [#/volume] in Blood [facility] Potassium [Moles/vol ume] in Serum or Plasma [facility] Potassium [Moles/vol ume] in Serum or Plasma [facility] End: 11-11-2025 Protein/Creatinine [Ratio] in Urine Protein / Creatinine Ratio, Urine Lab Routine Positive LIZ (antinuclear antibody) 1 Occurrences starting 11/11/2024 until 11/11/2025 [facility] Comment on above: 1 Occurrences starti ng 11/11/2024 until 11/11/2025 Pulse oximetry, overnight [employer] Work Phone: Red blood cell count [facility] Red blood cell count [facility] Red cell distributio n width determination [facility] Red cell distributio n width determination [facility] RT Communication Order [facility] Work Phone: Sodium [Moles/volume ] in Serum or Plasma [facility] Work Phone: Sodium [Moles/volume ] in Serum or Plasma [facility] Sodium [Moles/volume ] in Serum or Plasma [facility] Sodium, Urine, Random [facility] Work Phone: End: 06-02-2021 Standard ECG ECG ECG STAT One Time for 1 Occurrences starting 06/02/2021 until 06/02/2021 [facility] Comment on above: One Time for 1 Occur rences starting 06/02/2021 until 06/02/2021 Total protein measurement [facility] Troponin I.cardiac [Mass/volume] in Serum or Plasma [facility] Work Phone: End: 06-26-2021 Urate [Mass/volume] in Serum or Plasma [facility] Work Phone: End: 11-11-2025 Urate [Mass/volume] in Serum or Plasma Uric Acid Lab Routine Positive LIZ (antinuclear antibody) Recurrent cellulitis 1 Occurrences starting 11/11/2024 until 11/11/2025 [facility] Comment on above: 1 Occurrences starti ng 11/11/2024 until 11/11/2025 Urea nitrogen [Mass/volume] in Serum or Plasma [facility] Urea nitrogen [Mass/volume] in Serum or Plasma [facility] End: 06-26-2021 Urinalysis [facility] Work Phone: End: 11-11-2025 Urinalysis Urinalysis Lab Routine Positive LIZ (antinuclear antibody) 1 Occurrences starting 11/11/2024 until 11/11/2025 [facility] Comment on above: 1 Occurrences starti ng 11/11/2024 until 11/11/2025 Urine culture [facility] Immunizations Immunization Date Immunization Notes Care Provider Devan avilez 10-06-2023 zoster vaccine recombinant Alondra ZABALA Work Phone: [facility] 12-11-2022 zoster vaccine recombinant PA Alondra ZABALA Work Phone: [facility] Payers Date Payer Category Payer Self-pay [id number] 2024 [facility] ANTH BL UE/PREF/HMO/PPO [id number] 2023 Unknown [id number] 2022 [employer] Blue Shie ld (Indemnity or Managed Care) - Out of State BC[place] [facility] [id number] 2017 Unknown ANTHEM ANTHEM HM O PPO POS [id number] 2017-Present [id number] 2017 Unknown ANTHEM ANTHEM HM O PPO POS [id number] 2017-Present [id number] 2017 Unknown [id number] 1.13.172. [id number] 2017 [employer] W00 [id number] 1970 Unknown [id number] 2.16.840.1.799151.3.579. 2.651 1968 Unknown [id number] 2.16.840.1.066266.3.579. 2.356 1968 Unknown [id number] 2.16.840.1.269590.3.579. 2.356 1968 Unknown [id number] 2.16.840.1.166961.3.579. 2.903 1968 Unknown [id number] 2.16.840.1.200404.3.579. 2.903 1968 Unknown [id number] 2.16.840.1.648661.3.579. 2.983 Unknown [id number] Unknown [id number] Unknown [id number] Unknown [id number] 2.16.840.1.944206.3.579. 2.462 Unknown [id number] 2.16.840.1.290567.3.579. 2.462 Unknown [id number] 2.16.840.1.368482.3.579. 2.462 Unknown [id number] 2.16.840.1.315386.3.579. 2.462 Unknown [id number] 2.16.840.1.503613.3.579. 2.462 Unknown [id number] 2.16.840.1.849386.3.579. 2.462 Unknown [id number] 2.16.840.1.950965.3.579. 2.462 Unknown [id number] 2.16.840.1.310533.3.579. 2.462 Unknown [id number] 2.16.840.1.813518.3.579. 2.462 Unknown [id number] 2.16.840.1.585994.3.579. 2.462 Social History Date Type Detail Facility Start: 03-02-2018 End: 04-04-2024 Tobacco smoking status MSIS Unknown if ever smoked [facility] Start: 1970 Sex Assigned At Not on file O [facility] Start: 06-01-2020 End: 06-11-2025 Tobacco smoking status MSIS Never smoker [employer] [facility] Start: 06-01-2020 End: 09-04-2023 Alcohol intake Ex-drinker (finding) [facility] Exposure to SARS-CoV -2 (event) Unable to assess [facility], [place] Start: 08-24-2017 End: 05-25-2018 Tobacco use and exposure Never used [facility] Start: 05-25-2018 Alcohol intake Current drinke r of alcohol (finding) [facility] Start: 08-18-2017 Alcohol Comment rarely [facility] Exposure to SARS-CoV -2 (event) Yes [facility] Start: 1970 Sex Assigned At Female W [facility] Start: 09-04-2023 Non-smoker Non-smoker -[facility] DO Work Phone: Start: 09-04-2023 Tobacco use panel [facility] NEGATED: Highlighted row No Social History Information Available No Social History Information Available [employer] [facility]; [employer] Work Phone: Goals Date Patient Goal Desired [...] and elevating legs to better manage edema. [employer] Goals 3. Reduce LE edema as demontrated by decrease in LE girth by 2 cm to facilitate being able to wear shoes of choice and feel more comfortable in her pants. Functional Status Date Assessment Result Facility 06-16-2025 Functional status Ambulates [facility] Work Phone: 04-08-2024 Functional status Ambulates;[facility] Work Phone: 08-21-2023 Functional status Ambulates;[facility] Work Phone: 07-31-2023 Functional status Ambulates [facility] Work Phone: Mental Status Date Assessment Result Facility 06-16-2025 Cognitive function Voice/Name [facility] Work Phone: 04-08-2024 Cognitive function Voice/Name [facility] Work Phone: 08-21-2023 Cognitive function Voice/Name [facility] Work Phone: 07-31-2023 Cognitive function Voice/Name [facility] Work Phone: 07-08-2023 Cognitive function Level Of Cons ciousness Awake;Alert;Appropriate;Follow s Commands [facility] Work Phone: Clinical Notes 06-02-2021 to 06-16-2025 Note Date & Type Note Facility 06-16-2025 Discharge summary Note Date/Time June 16, 2025 2:08pm [facility] Medical Records Department [address] [place] [address] Discharge Summary 06/16/25 1007 MR#: [id number] Acct: [id number] Name: JESUSITA ENGLAND Rep #:[id number] 6 : 1970 55 From: Brittani Looney MD PCP: VJ Maloney Status:ADM IN Location: [place] [address] Providers Date of Admission: 06/11/25 Date of Discharge: 06/16/25 Primary Care Physician: VJ Maloney Consultations 06/11/25 05:20 Consult: 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 Anasarca compounded by underlying chronic bilateral lower extremity lymphedema with concern for bilateral lower extremity cellulitis, unable to ruleout possibility of acute HFpEF #2. Pseudomonal bacteremia of unclear specific etiology, 1 of 2 blood cultures positive #3. Morbid Obesity #4. Hypertension #5. Anxiety and depression #6. Asthma #7. Chronic anemia/iron deficiency anemia #8. MIGUEL on CPAP nightly #9. GERD #10. History stage III decubitus ulcer #11. CKD stage II per GFR trending Medications at Discharge Home Medications acetaminophen 500 mg capsule 1,000 mg PO Q6H PRN Pain 07/11/21 ferrous sulfate 325 mg (65 mg iron) tablet (FeroSul) 325 mg PO DAILY@1200 iron #30 tabs 08/01/21 venlafaxine 75 mg capsule,extended release 24 hr (Effexor XR) 225 mg (3 x 75 mg)PO DAILY depression #90 caps 09/03/21 lisinopril 10 mg tablet 10 mg PO DAILY blood pressure 07/24/23 nystatin 100,000 unit/gram topical powder (Nyamyc) 1 applic topical BID yeast infection 30 days #60 grams 07/31/23 cholecalciferol (vitamin D3) 1 tab PO DAILY supplement 04/04/24 valacyclovir 1 gram tablet 2,000 mg PO BID PRN cold sore 04/07/24 L.acidophil,salivari-Bifido bifidum-Strep thermoph 175 mg capsule 1 cap PO BID supplement 10 days #20 caps 05/09/24 BM-W5-O3-W4-D7-S2-B7-B12-vit C 1 tab PO DAILY vitamin 06/11/25 albuterol sulfate 2.5 mg/3 mL (0.083 %) solution for nebulization 2.5 mg continuous nebulization Q4H PRN PRN dyspnea 06/11/25 buspirone 5 mg tablet 5 mg PO BID mood 06/11/25 calcium carbonate (Ally-Cornell Heartburn Chew) 600 mg PO TID PRN dyspepsia 06/11/25 cholestyramine (with sugar) 4 gram oral powder 2 - 4 ea PO DAILY supp 06/11/25 multivitamin (Daily Multi-Vitamin tablet) 1 tab PO DAILY supp 06/11/25 pantoprazole 20 mg tablet,delayed release 20 mg PO DAILY stomach 06/11/25 furosemide 40 mg tablet (Lasix) 40 mg PO DAILY 30 days #30 tabs 06/16/25 levofloxacin 750 mg tablet 750 mg PO DAILY 6 days #6 tabs 06/16/25 Hospital Course Operations None Procedures 2-D Echocardiogram and EKG Summary of Care Provided Minutes Spent on Discharge: 35 Hospital Course: The patient is a 55 y/o F w/ PMHx: CKD stage II per GFR trending, chronic BL LE lymphedema, Morbid obesity, HTN, Anxiety and Depression, Asthma, Chronic anemia/Fe deficiency anemia, MIGUEL on CPAP q HS, GERD who presented to the [facility] ED 06/11/2025 with history of concern for bilateral lower extremity recurrent cellulitis with significant bilateral lower extremity swelling prompting eventual ED evaluation. Patient was initiated on IV antibiotic therapy and cultures were obtained with noted 1 of 2 blood cultures eventually positive for Pseudomonas treated with IV Zosyn eventually transition to oral Levaquin at discharge to complete antibiotic therapy but unclear exact source. Given significant venous stasis some suspicion for possible pulmonary venous congestion given difficulty with assessment on chest x-ray given habitus. Patient was transitioned eventually to a Lasix drip with significant diuresis undertaken with improvement of bilateral lower extremity swelling/anasarca as well as lessened erythematous appearance. 06/16/2025 echocardiogram with borderline LV systolic function with EF 45 to 50% with stage I diastolic dysfunction, mildly enlarged LA, mildly dilated aortic root. Patient was transitioned off of the IV Lasix drip and started on oral Lasix 40 mg daily withrecommended follow-up with primary care physician for repeat basic metabolic panel to assure no electrolyte disturbances and continued normal renal function. TSH 2.840, magnesium 2.1. Patient given clinical improvement discharged to home with PCP follow-up as well as the wound care center given significant chronic lymphedema to assist with assuring bilateral lower extremity swelling ismonitored potentially be fitted for outpatient compression stockings if appropriate. DAY OF DISCHARGE PROGRESS NOTE: Subjective: Patient without acute event overnight per self and nursing report. Patient does report feeling improved, able to lay flat without issue, breathing better and her legs do not feel swollen or tender. Patient denies fever, chills, nausea, emesis, abdominal pain, chest pain or dyspnea. Patient agreeable to discharge to home. Patient will be discharged with follow-up with primary care physician within 3-5 days in addition to wound care center for chronic lymphedema. Objective: T97.8, heart rate 75, BP 118/77, respiratory rate 14, 95% on room air. Physical Examination: General: awake, alert, oriented x 3 and cooperative, laying in the PCU bed, no acute distress. Skin: normal color, turgor, no icterus, cyanosis except improving and resolved bilateral lower extremity questionable cellulitis more suspicious for venous stasis skin changes. HEENT: AT/NC, EOMI, PERRLA, MMM. Lungs: Diminished, distant, likely secondary to morbidly obese habitus, no evidence of distress, no rales, ronchi or wheezing; Heart: Regular rate and rhythm; no gallop, rub audible. Abdomen: soft, morbidly obese, NTTP, distant BS, no discern distention however habitus makes evaluation difficult. Extremities: no cyanosis, no clubbing, chronic bilateral lower extremity lymphedema, improved since initial ED arrival, able to see wrinkles in her distal lower extremities, erythema present but more suspicious for venous stasisskin changes at this time. Neurological: patient awake, alert, oriented as noted, cognitive function appears intact upon questioning,; pupils equally reactive to light and accommodation, cranial nerves II-XII grossly normal, moving all 4 extremities, strength improved, mildly to moderately globally decreased. Psychiatric: affect appears fatigued otherwise normal, no acute evidence of depressive or anxiety feelings. Assessment and Plan: Please see hospital summary above. Weight / BMI Weight Weight: 493 lb 6.312 oz Body Mass Index (BMI) 87.4 ABG / Lab / Microbiology Data 06/14/25 07:00 06/16/25 05:50 Laboratory: Laboratory Results - last 24 hr 06/16/25 05:50: Sodium 136, Potassium 3.7, Chloride 94 L, Carbon Dioxide 27.4, Anion Gap 15, BUN 28 H, Creatinine 0.97, Estim Creat Clear Calc 122.19, Est GFR (MDRD) Non-Af 68, BUN/Creatinine Ratio 28.9 H, Glucose 131 H, Calcium 9.3, Magnesium 2.1, TSH 2.840 Microbiology: Microbiology 06/11/25 00:05 Blood Culture (Wb) - Anticubital Left Blood Culture - Final No growth in 5 days. 06/11/25 00:30 Urine, Catheterized Urine Culture - Final Culture exhibits no growth. 06/11/25 00:11 Blood Culture (Wb) - Anticubital Right Blood Culture - Final Pseudomonas aeruginosa 06/11/25 00:18 Mucosa - Nose SARS-CoV-2, Influenza & RSV (PCR) - Final Radiography Diagnostic Testing: Radiology Impression Echocardiogram 06/16/25 07:02 Interpretation Summary The study was technically difficult. Borderline LV systolic function. Estimated LVEF 45-50%. Stage I diastolic dysfunction. The left atrium is mildly enlarged. Mildly dilated aortic root. Ordering Physician: Brittani Looney Referring Physician: ALONDRA ROSENBERG Performed By: Rosie Cox RDCS D/C Instructions May resume sexual activity in: 10-14 days Weight Bearing Status: Weight bearing as tolerated Call your doctor if you observe: Fever of 101 or Higher, Shortness of breath, Dizziness, Swelling in the ankles, Chest pain, Increased palpitations (irregularheartbeat), Calf discomfort and Uncontrolled pain DC O2, CPAP, BIPAP Needs Home O2 Discharge instructions: No Meaningful Use Info Meaningful Use Meaningful Use Diagnoses (Choose all that apply): CHF CHF PROMISE/ARB ordered at discharge?: Yes Documented LVEF (%): 50 Discharge Plan Admission Admit Date/Time: 06/11/25 02:49 Primary Reason for Your Visit: Lower extremity cellulitis, Bacteremia (blood stream infection). Attending Provider: Brittani Looney Primary Care Provider: Alondra Rosenberg Consulting Providers: Mauri Sampson; Antoni Abdul Instructions Patient Instructions: Understanding Lymphedema, Cellulitis Dc, ED Bacteremia, Suspected (Adult) Additional Instructions / Restrictions: ADDITIONAL DISCHARGE INSTRUCTIONS/PLAN OF CARE: During the admission you were treated for bilateral lower extremity skin infection associated with significant swelling known as anasarca with antibiotictherapies initially IV eventually transitioned on your discharge to oral Levaquin with a stop date of 06/22/2025 in addition to IV Lasix utilized and IV drip form in addition with notable weight loss and improvement of lower extremity swelling. We have started you on oral Lasix at discharge but please continue to monitor blood pressure and if your systolic blood pressure is < 110 please hold. We would also like you to have a repeat basic metabolic panel at follow-up with your primary care physician to make sure your labs are appropriate given this new medication. During the admission you also had noted growth of Pseudomonas however it was only on 1 of 2 blood cultures and this is sensitive to Levaquin to which you have also been discharged on which will treat both skin infection and this potential bloodstream infection. We strongly encourage that you elevate bilateral lower extremities above your heart when seated and in bed. We also strongly recommend continued efforts for weight loss and lifestyle changes. It would be beneficial to maintain bilaterallower extremity snug promise wraps starting at the toes to at least just below the knees, overlapping, no skin showing. It is vital that there be no skin showing to assist with keeping the fluid out of her lower extremities. It is important that there be no areas where the wrap is stuck in folds as fluid will primarily collect in those regions then. Outpatient your primary care physician can work to assist with possible compression stockings that need to be fitted. We have also placed a referral to the wound care center as they may assist in chronic lymphedema evaluation and treatment. Discharge Orders/Prescriptions Prescriptions: New furosemide [Lasix] 40 mg tablet 40 mg PO DAILY 30 Days Qty: 30 0RF Rx Instructions: Hold for SBP < 110 levofloxacin 750 mg tablet 750 mg PO DAILY 6 Days Qty: 6 0RF Continued acetaminophen 500 mg capsule 1,000 mg PO Q6H PRN (Reason: Pain) ferrous sulfate [FeroSul] 325 mg (65 mg iron) Tablet 325 mg PO DAILY@1200 Qty: 30 0RF venlafaxine [Effexor XR] 75 mg capsule,extended release 24hr 225 mg PO DAILY Qty: 90 0RF Rx Instructions: take 3 capsules every AM lisinopril 10 mg tablet 10 mg PO DAILY nystatin [Nyamyc] 100,000 unit/gram Powder 1 applic topical BID 30 Days Qty: 60 0RF Protocol: *Topical Application Instructions APPLICATION INSTRUCTIONS: apply to skin folds, particularly BLE Patient Comments: pt. reports not taking it cholecalciferol (vitamin D3) 1 tab PO DAILY Patient Comments: PT UNAWARE OF DOSAGE valacyclovir 1 gram tablet 2,000 mg PO BID PRN (Reason: cold sore) Patient Comments: x1 day L.acidoph,saliva-B.bif-S.therm 175 mg Capsule 1 cap PO BID 10 Days Qty: 20 0RF Ally-Cornell Heartburn Chew 300 mg (750 mg) tablet,chewable 600 mg PO TID PRN (Reason: dyspepsia) pantoprazole 20 mg tablet,delayed release (DR/EC) 20 mg PO DAILY cholestyramine (with sugar) 4 gram powder 2 - 4 ea PO DAILY multivitamin [Daily Multi-Vitamin] Tablet 1 tab PO DAILY EU-F7-R4-G0-P2-R7-B7-B12-vit C 1 tab PO DAILY buspirone 5 mg tablet 5 mg PO BID albuterol sulfate 2.5 mg /3 mL (0.083 %) solution for nebulization 2.5 mg continuous nebulization Q4H PRN PRN (Reason: dyspnea) Referrals / Follow Up: Alondra Rosenberg PA [Primary Care Provider] - (Follow-up within 3-5 days to review admission.) [facility] [Non-Staff] - 06/20/25 9:00 am (Please follow-up and establish for BL LE lymphedema evaluation and ongoing treatment.) Disposition Disposition (needs filled in before D/C Order can be placed): Home, Self Care Charges/Coding Visit Charges Inpatient E&M: 31532 Disch Hosp >30min 06/16/25 1408 <Electronically signed by Brittani Looney MD> Cosigner Signature (if applicable): CC: Dr. Brittani Looney MD; VJ Maloney~ Signed [facility] Work Phone: 1(634) 803-704007-18-2025 Discharge summary [facility] Medical Records Department [address] [place] [id number] Discharge Summary 06/16/25 1007 MR#: [id number] Acct: [id number] Name: JESUSITA ENGLAND Rep #:[id number] 6 : 1970 55 From: Brittani Looney MD PCP: VJ Maloney Status:[id number] Providers Date of Admission: 06/11/25 Date of Discharge: 06/16/25 Primary Care Physician: VJ Maloney Consultations 06/11/25 05:20 Consult: 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 Anasarca compounded by underlying chronic bilateral lower extremity lymphedema with concern forbilateral lower extremity cellulitis, unable to ruleout possibility of acute HFpEF #2. Pseudomonal bacteremia of unclear specific etiology, 1 of 2 blood cultures positive #3. Morbid Obesity #4. Hypertension #5. Anxiety and depression #6. Asthma #7. Chronic anemia/iron deficiency anemia #8. MIGUEL on CPAP nightly #9. GERD #10. History stage III decubitus ulcer #11. CKD stage II per GFR trending Medications at Discharge Home Medications acetaminophen 500 mg capsule 1,000 mg PO Q6H PRN Pain 07/11/21 ferrous sulfate 325 mg (65 mg iron) tablet (FeroSul) 325 mg PO DAILY@1200 iron #30 tabs 08/01/21 venlafaxine 75 mg capsule,extended release 24 hr (Effexor XR) 225 mg (3 x 75 mg)PO DAILY depression#90 caps 09/03/21 lisinopril 10 mg tablet 10 mg PO DAILY blood pressure 07/24/23 nystatin 100,000 unit/gram topical powder (Nyamyc) 1 applic topical BID yeast infection 30 days #60grams 07/31/23 cholecalciferol (vitamin D3) 1 tab PO DAILY supplement 04/04/24 valacyclovir 1 gram tablet 2,000 mg PO BID PRN cold sore 04/07/24 L.acidophil,salivari-Bifido bifidum-Strep thermoph 175 mg capsule 1 cap PO BID supplement 10 days #20 caps 05/09/24 FD-M3-U9-J2-E4-N9-B7-B12-vit C 1 tab PO DAILY vitamin 06/11/25 albuterol sulfate 2.5 mg/3 mL (0.083 %) solution for nebulization 2.5 mg continuous nebulization Q4H PRN PRN dyspnea 06/11/25 buspirone 5 mg tablet 5 mg PO BID mood 06/11/25 calcium carbonate (Ally-Cornell Heartburn Chew) 600 mg PO TID PRN dyspepsia 06/11/25 cholestyramine (with sugar) 4 gram oral powder 2 - 4 ea PO DAILY supp 06/11/25 multivitamin (Daily Multi-Vitamin tablet) 1 tab PO DAILY supp 06/11/25 pantoprazole 20 mg tablet,delayed release 20 mg PO DAILY stomach 06/11/25 furosemide 40 mg tablet (Lasix) 40 mg PO DAILY 30 days #30 tabs 06/16/25 levofloxacin 750 mg tablet 750 mg PO DAILY 6 days #6 tabs 06/16/25 Hospital Course Operations None Procedures 2-D Echocardiogram and EKG Summary of Care Provided Minutes Spent on Discharge: 35 Hospital Course: The patient is a 55 y/o F w/ PMHx: CKD stage II per GFR trending, chronic BL LE lymphedema, Morbid obesity, HTN, Anxiety and Depression, Asthma, Chronic anemia/Fe deficiency anemia, MIGUEL on CPAP q HS,GERD who presented to the [facility] ED 06/11/2025 with history of concern for bilateral lower extremity recurrent cellulitis with significant bilateral lower extremity swelling prompting eventual ED evaluation. Patient was initiated on IV antibiotic therapy and cultures were obtainedwith noted 1 of 2 blood cultures eventually positive for Pseudomonas treated with IV Zosyn eventually transition to oral Levaquin at discharge to complete antibiotic therapy but unclear exact source.Given significant venous stasis some suspicion for possible pulmonary venous congestion given difficulty with assessment on chest x-ray given habitus. Patient was transitioned eventually to a Lasix drip with significant diuresis undertaken with improvement of bilateral lower extremity swelling/anasarca as well as lessened erythematous appearance. 06/16/2025 echocardiogram with borderline LV systolic function with EF 45 to 50% with stage I diastolic dysfunction, mildly enlarged LA, mildly dilatedaortic root. Patient was transitioned off of the IV Lasix drip and started on oral Lasix 40 mg daily withrecommended follow-up with primary care physician for repeat basic metabolic panel to assure no electrolyte disturbances and continued normal renal function. TSH 2.840, magnesium 2.1. Patient given clinical improvement discharged to home with PCP follow-up as well as the wound care center given significant chronic lymphedema to assist with assuring bilateral lower extremity swelling ismonitor ed potentially be fitted for outpatient compression stockings if appropriate. DAY OF DISCHARGE PROGRESS NOTE: Subjective: Patient without acute event overnight per self and nursing report. Patient does report feeling improved, able to lay flat without issue, breathing better and her legs do not feel swollen or tender. Patient denies fever, chills, nausea, emesis, abdominal pain, chest pain or dyspnea. Patient agreeable to discharge to home. Patient will be discharged with follow-up with primary care physician within 3-5 days in addition to wound care center for chronic lymphedema. Objective: T97.8, heart rate 75, BP 118/77, respiratory rate 14, 95% on room air. Physical Examination: General: awake, alert, oriented x 3 and cooperative, laying in the PCU bed, no acute distress. Skin: normal color, turgor, no icterus, cyanosis except improving and resolved bilateral lower extremity questionable cellulitis more suspicious for venous stasis skin changes. HEENT: AT/NC, EOMI, PERRLA, MMM. Lungs: Diminished, distant, likely secondary to morbidly obese habitus, no evidence of distress, lefty, ronchi or wheezing; Heart: Regular rate and rhythm; no gallop, rub audible. Abdomen: soft, morbidly obese, NTTP, distant BS, no discern distention however habitus makes evaluation difficult. Extremities: no cyanosis, no clubbing, chronic bilateral lower extremity lymphedema, improved sinceinitial ED arrival, able to see wrinkles in her distal lower extremities, erythema present but moresuspicious for venous stasisskin changes at this time. Neurological: patient awake, alert, oriented as noted, cognitive function appears intact upon questioning,; pupils equally reactive to light and accommodation, cranial nerves II-XII grossly normal, moving all 4 extremities, strength improved, mildly to moderately globally decreased. Psychiatric: affect appears fatigued otherwise normal, no acute evidence of depressive or anxiety feelings. Assessment and Plan: Please see hospital summary above. Weight / BMI Weight Weight: 493 lb 6.312 oz Body Mass Index (BMI) 87.4 ABG / Lab / Microbiology Data 06/14/25 07:00 06/16/25 05:50 Laboratory: Laboratory Results - last 24 hr 06/16/25 05:50: Sodium 136, Potassium 3.7, Chloride 94 L, Carbon Dioxide 27.4, Anion Gap 15, BUN 28H, Creatinine 0.97, Estim Creat Clear Calc 122.19, Est GFR (MDRD) Non-Af 68, BUN/Creatinine Ratio 28.9 H, Glucose 131 H, Calcium 9.3, Magnesium 2.1, TSH 2.840 Microbiology: Microbiology 06/11/25 00:05 Blood Culture (Wb) - Anticubital Left Blood Culture - Final No growth in 5 days. 06/11/25 00:30 Urine, Catheterized Urine Culture - Final Culture exhibits no growth. 06/11/25 00:11 Blood Culture (Wb) - Anticubital Right Blood Culture - Final Pseudomonas aeruginosa 06/11/25 00:18 Mucosa - Nose SARS-CoV-2, Influenza & RSV (PCR) - Final Radiography Diagnostic Testing: Radiology Impression Echocardiogram 06/16/25 07:02 Interpretation Summary The study was technically difficult. Borderline LV systolic function. Estimated LVEF 45-50%. Stage I diastolic dysfunction. The left atrium is mildly enlarged. Mildly dilated aortic root. Ordering Physician: Brittani Looney Referring Physician: ALONDRA ROSENBERG Performed By: Rosie Cox RDCS D/C Instructions May resume sexual activity in: 10-14 days Weight Bearing Status: Weight bearing as tolerated Call your doctor if you observe: Fever of 101 or Higher, Shortness of breath, Dizziness, Swelling in the ankles, Chest pain, Increased palpitations (irregularheartbeat), Calf discomfort and Uncontrolled pain DC O2, CPAP, BIPAP Needs Home O2 Discharge instructions: No Meaningful Use Info Meaningful Use Meaningful Use Diagnoses (Choose all that apply): CHF CHF PROMISE/ARB ordered at discharge?: Yes Documented LVEF (%): 50 Discharge Plan Admission Admit Date/Time: 06/11/25 02:49 Primary Reason for Your Visit: Lower extremity cellulitis, Bacteremia (blood stream infection). Attending Provider: Brittani Looney Primary Care Provider: Alondra Rosenberg Consulting Providers: Mauri Sampson; Antoni Abdul Instructions Patient Instructions: Understanding Lymphedema, Cellulitis Dc, ED Bacteremia, Suspected (Adult) Additional Instructions / Restrictions: ADDITIONAL DISCHARGE INSTRUCTIONS/PLAN OF CARE: During the admission you were treated for bilateral lower extremity skin infection associated with significant swelling known as anasarca with antibiotictherapies initially IV eventually transitionedon your discharge to oral Levaquin with a stop date of 06/22/2025 in addition to IV Lasix utilized and IV drip form in addition with notable weight loss and improvement of lower extremity swelling. We have started you on oral Lasix at discharge but please continue to monitor blood pressure and ifyour systolic blood pressure is < 110 please hold. We would also like you to have a repeat basicmetabolic panel at follow-up with your primary care physician to make sure your labs are appropriate given this new medication. During the admission you also had noted growth of Pseudomonas however it was only on 1 of 2 blood cultures and this is sensitive to Levaquin to which you have also been discharged on which will treatboth skin infection and this potential bloodstream infection. We strongly encourage that you elevate bilateral lower extremities above your heart when seated andin bed. We also strongly recommend continued efforts for weight loss and lifestyle changes. It would be beneficial to maintain bilaterallower extremity snug promise wraps starting at the toes to at leastjust below the knees, overlapping, no skin showing. It is vital that there be no skin showing to assist with keeping the fluid out of her lower extremities. It is important that there be no areas where the wrap is stuck in folds as fluid will primarily collect in those regions then. [facility] can work to assist with possible compression stockings that need to be fitted. We have also placed a referral to the wound care center as they may assist in chronic lymphedema evaluation and treatment. Discharge Orders/Prescriptions Prescriptions: New furosemide [Lasix] 40 mg tablet 40 mg PO DAILY 30 Days Qty: 30 0RF Rx Instructions: Hold for SBP < 110 levofloxacin 750 mg tablet 750 mg PO DAILY 6 Days Qty: 6 0RF Continued acetaminophen 500 mg capsule 1,000 mg PO Q6H PRN (Reason: Pain) ferrous sulfate [FeroSul] 325 mg (65 mg iron) Tablet 325 mg PO DAILY@1200 Qty: 30 0RF venlafaxine [Effexor XR] 75 mg capsule,extended release 24hr 225 mg PO DAILY Qty: 90 0RF Rx Instructions: take 3 capsules every AM lisinopril 10 mg tablet 10 mg PO DAILY nystatin [Nyamyc] 100,000 unit/gram Powder 1 applic topical BID 30 Days Qty: 60 0RF Protocol: *Topical Application Instructions APPLICATION INSTRUCTIONS: apply to skin folds, particularly BLE Patient Comments: pt. reports not taking it cholecalciferol (vitamin D3) 1 tab PO DAILY Patient Comments: PT UNAWARE OF DOSAGE valacyclovir 1 gram tablet 2,000 mg PO BID PRN (Reason: cold sore) Patient Comments: x1 day L.acidoph,saliva-B.bif-S.therm 175 mg Capsule 1 cap PO BID 10 Days Qty: 20 0RF Ally-Cornell Heartburn Chew 300 mg (750 mg) tablet,chewable 600 mg PO TID PRN (Reason: dyspepsia) pantoprazole 20 mg tablet,delayed release (DR/EC) 20 mg PO DAILY cholestyramine (with sugar) 4 gram powder 2 - 4 ea PO DAILY multivitamin [Daily Multi-Vitamin] Tablet 1 tab PO DAILY [id number]-G6-B7-B12-vit C 1 tab PO DAILY buspirone 5 mg tablet 5 mg PO BID albuterol sulfate 2.5 mg /3 mL (0.083 %) solution for nebulization 2.5 mg continuous nebulization Q4H PRN PRN (Reason: dyspnea) Referrals / Follow Up: Alondra Rosenberg PA [Primary Care Provider] - (Follow-up within 3-5 days to review admission.) [facility] [Non-Staff] - 06/20/25 9:00 am (Please follow-up and establish for BL LE lymphedema evaluation and ongoing treatment.) Disposition Disposition (needs filled in before D/C Order can be placed): Home, Self Care Charges/Coding Visit Charges Inpatient E&M: 70535 Disch Hosp >30min 06/16/25 1408 Cosigner Signature (if applicable): CC: Dr. Brittani Looney MD; VJ Maloney~ Signed [facility]07-18-2025 Discharge summary Author Brittani Looney [facility] Note Date/Time June 16, 2025 10:0 7am [facility] Medical Records Department [address] [place] [id number] Instructions for Home/Discharge Instructions 06/16/25 1006 MR#: [id number] Acct: [id number] Name: JESUSITA ENGLAND Rep #:[id number] : 1970 55 From: Brittani Looney MD PCP: VJ Maloney Status:ADM IN Discharge Instructions DC O2, CPAP, BIPAP needs Home O2 Discharge instructions: No Dressing / Incision Discharge Activity: - (Encourage routine activity in the home. Avoid prolonged heat exposure. ) May resume sexual activity in: 10-14 days Weight Bearing Status: Weight bearing as tolerated Dressing / Incision Call your doctor if you observe: Fever of 101 or Higher, Shortness of breath, Dizziness, Swelling in the ankles, Chest pain, Increased palpitations (irregularheartbeat), Calf discomfort and Uncontrolled pain Follow Up Care Test Results: Test results from this visit will be discussed in further detail at your follow- up appointment, if applicable. Discharge Plan Admission Admit Date/Time: 06/11/25 02:49 Primary Reason for Your Visit: Lower extremity cellulitis, Bacteremia (blood stream infection). Attending Provider: Brittani Looney Primary Care Provider: Alondra Rosenberg Consulting Providers: Mauri Sampson; Antoni Abdul Instructions Patient Instructions: Understanding Lymphedema, Cellulitis Dc, ED Bacteremia, Suspected (Adult) Additional Instructions / Restrictions: ADDITIONAL DISCHARGE INSTRUCTIONS/PLAN OF CARE: During the admission you were treated for bilateral lower extremity skin infection associated with significant swelling known as anasarca with antibiotictherapies initially IV eventually transitioned on your discharge to oral Levaquin with a stop date of 06/22/2025 in addition to IV Lasix utilized and IV drip form in addition with notable weight loss and improvement of lower extremity swelling. We have started you on oral Lasix at discharge but please continue to monitor blood pressure and if your systolic blood pressure is < 110 please hold. We would also like you to have a repeat basic metabolic panel at follow-up with your primary care physician to make sure your labs are appropriate given this new medication. During the admission you also had noted growth of Pseudomonas however it was only on 1 of 2 blood cultures and this is sensitive to Levaquin to which you have also been discharged on which will treat both skin infection and this potential bloodstream infection. We strongly encourage that you elevate bilateral lower extremities above your heart when seated and in bed. We also strongly recommend continued efforts for weight loss and lifestyle changes. It would be beneficial to maintain bilaterallower extremity snug promise wraps starting at the toes to at least just below the knees, overlapping, no skin showing. It is vital that there be no skin showing to assist with keeping the fluid out of her lower extremities. It is important that there be no areas where the wrap is stuck in folds as fluid will primarily collect in those regions then. Outpatient your primary care physician can work to assist with possible compression stockings that need to be fitted. We have also placed a referral to the wound care center as they may assist in chronic lymphedema evaluation and treatment. Discharge Orders/Prescriptions Prescriptions: New furosemide [Lasix] 40 mg tablet 40 mg PO DAILY 30 Days Qty: 30 0RF Rx Instructions: Hold for SBP < 110 levofloxacin 750 mg tablet 750 mg PO DAILY 6 Days Qty: 6 0RF Continued acetaminophen 500 mg capsule 1,000 mg PO Q6H PRN (Reason: Pain) ferrous sulfate [FeroSul] 325 mg (65 mg iron) Tablet 325 mg PO DAILY@1200 Qty: 30 0RF venlafaxine [Effexor XR] 75 mg capsule,extended release 24hr 225 mg PO DAILY Qty: 90 0RF Rx Instructions: take 3 capsules every AM lisinopril 10 mg tablet 10 mg PO DAILY nystatin [Nyamyc] 100,000 unit/gram Powder 1 applic topical BID 30 Days Qty: 60 0RF Protocol: *Topical Application Instructions APPLICATION INSTRUCTIONS: apply to skin folds, particularly BLE Patient Comments: pt. reports not taking it cholecalciferol (vitamin D3) 1 tab PO DAILY Patient Comments: PT UNAWARE OF DOSAGE valacyclovir 1 gram tablet 2,000 mg PO BID PRN (Reason: cold sore) Patient Comments: x1 day L.acidoph,saliva-B.bif-S.therm 175 mg Capsule 1 cap PO BID 10 Days Qty: 20 0RF Ally-Cornell Heartburn Chew 300 mg (750 mg) tablet,chewable 600 mg PO TID PRN (Reason: dyspepsia) pantoprazole 20 mg tablet,delayed release (DR/EC) 20 mg PO DAILY cholestyramine (with sugar) 4 gram powder 2 - 4 ea PO DAILY multivitamin [Daily Multi-Vitamin] Tablet 1 tab PO DAILY [id number]-F9-B7-B12-vit C 1 tab PO DAILY buspirone 5 mg tablet 5 mg PO BID albuterol sulfate 2.5 mg /3 mL (0.083 %) solution for nebulization 2.5 mg continuous nebulization Q4H PRN PRN (Reason: dyspnea) Referrals / Follow Up: Alondra Rosenberg PA [Primary Care Provider] - (Follow-up within 3-5 days to review admission.) [facility] [Non-Staff] - (Please follow-up and establish for BL LE lymphedema evaluation and ongoing treatment.) Disposition Disposition (needs filled in before D/C Order can be placed): Home, Self Care 06/16/25 1007<Electronically signed by Brittani Looney MD>Brittani Looney MD CC: Dr. Mauri Sampson DO; Dr. Antoni Abdul DO; VJ Maloney ~ Signed [facility] Work Phone: [phone] Discharge summary [facility] Medical Records Department [address] [place] [address] Instructions for Home/Discharge Instructions 06/16/25 1006 MR#: [id number] Acct: [id number] Name: JESUSITA ENGLAND Rep #:[id number] : 1970 55 From: Brittani Looney MD PCP: VJ Maloney Status:ADM IN Discharge Instructions DC O2, CPAP, BIPAP needs Home O2 Discharge instructions: No Dressing / Incision Discharge Activity: - (Encourage routine activity in the home. Avoid prolonged heat exposure. ) May resume sexual activity in: 10-14 days Weight Bearing Status: Weight bearing as tolerated Dressing / Incision Call your doctor if you observe: Fever of 101 or Higher, Shortness of breath, Dizziness, Swelling in the ankles, Chest pain, Increased palpitations (irregularheartbeat), Calf discomfort and Uncontrolled pain Follow Up Care Test Results: Test results from this visit will be discussed in further detail at your follow- up appointment, if applicable. Discharge Plan Admission Admit Date/Time: 06/11/25 02:49 Primary Reason for Your Visit: Lower extremity cellulitis, Bacteremia (blood stream infection). Attending Provider: Brittani Looney Primary Care Provider: Alondra Rosenberg Consulting Providers: Mauri Sampson; Antoni Abdul Instructions Patient Instructions: Understanding Lymphedema, Cellulitis Dc, ED Bacteremia, Suspected (Adult) Additional Instructions / Restrictions: ADDITIONAL DISCHARGE INSTRUCTIONS/PLAN OF CARE: During the admission you were treated for bilateral lower extremity skin infection associated with significant swelling known as anasarca with antibiotictherapies initially IV eventually transitionedon your discharge to oral Levaquin with a stop date of 06/22/2025 in addition to IV Lasix utilized and IV drip form in addition with notable weight loss and improvement of lower extremity swelling. We have started you on oral Lasix at discharge but please continue to monitor blood pressure and ifyour systolic blood pressure is < 110 please hold. We would also like you to have a repeat basicmetabolic panel at follow-up with your primary care physician to make sure your labs are appropriate given this new medication. During the admission you also had noted growth of Pseudomonas however it was only on 1 of 2 blood cultures and this is sensitive to Levaquin to which you have also been discharged on which will treatboth skin infection and this potential bloodstream infection. We strongly encourage that you elevate bilateral lower extremities above your heart when seated andin bed. We also strongly recommend continued efforts for weight loss and lifestyle changes. It would be beneficial to maintain bilaterallower extremity snug promise wraps starting at the toes to at leastjust below the knees, overlapping, no skin showing. It is vital that there be no skin showing to assist with keeping the fluid out of her lower extremities. It is important that there be no areas where the wrap is stuck in folds as fluid will primarily collect in those regions then. [facility] can work to assist with possible compression stockings that need to be fitted. We have also placed a referral to the wound care center as they may assist in chronic lymphedema evaluation and treatment. Discharge Orders/Prescriptions Prescriptions: New furosemide [Lasix] 40 mg tablet 40 mg PO DAILY 30 Days Qty: 30 0RF Rx Instructions: Hold for SBP < 110 levofloxacin 750 mg tablet 750 mg PO DAILY 6 Days Qty: 6 0RF Continued acetaminophen 500 mg capsule 1,000 mg PO Q6H PRN (Reason: Pain) ferrous sulfate [FeroSul] 325 mg (65 mg iron) Tablet 325 mg PO DAILY@1200 Qty: 30 0RF venlafaxine [Effexor XR] 75 mg capsule,extended release 24hr 225 mg PO DAILY Qty: 90 0RF Rx Instructions: take 3 capsules every AM lisinopril 10 mg tablet 10 mg PO DAILY nystatin [Nyamyc] 100,000 unit/gram Powder 1 applic topical BID 30 Days Qty: 60 0RF Protocol: *Topical Application Instructions APPLICATION INSTRUCTIONS: apply to skin folds, particularly BLE Patient Comments: pt. reports not taking it cholecalciferol (vitamin D3) 1 tab PO DAILY Patient Comments: PT UNAWARE OF DOSAGE valacyclovir 1 gram tablet 2,000 mg PO BID PRN (Reason: cold sore) Patient Comments: x1 day L.acidoph,saliva-B.bif-S.therm 175 mg Capsule 1 cap PO BID 10 Days Qty: 20 0RF Ally-Cornell Heartburn Chew 300 mg (750 mg) tablet,chewable 600 mg PO TID PRN (Reason: dyspepsia) pantoprazole 20 mg tablet,delayed release (DR/EC) 20 mg PO DAILY cholestyramine (with sugar) 4 gram powder 2 - 4 ea PO DAILY multivitamin [Daily Multi-Vitamin] Tablet 1 tab PO DAILY [id number]-B2-F9-B7-B12-vit C 1 tab PO DAILY buspirone 5 mg tablet 5 mg PO BID albuterol sulfate 2.5 mg /3 mL (0.083 %) solution for nebulization 2.5 mg continuous nebulization Q4H PRN PRN (Reason: dyspnea) Referrals / Follow Up: Alondra Rosenberg PA [Primary Care Provider] - (Follow-up within 3-5 days to review admission.) [facility] [Non-Staff] - (Please follow-up and establish for BL LE lymphedema evaluation and ongoing treatment.) Disposition Disposition (needs filled in before D/C Order can be placed): Home, Self Care 06/16/25 1007Autjosh Looney MD CC: Dr. Mauri Sampson DO; Dr. Antoni Abdul DO; VJ Maloney ~ Signed [facility]07-18-2025 [facility] Medical Records Department [address] [place] [address] Discharge Summary 06/16/25 1007 MR#: [id number] Acct: [id number] Name: JESUSITA ENGLAND Rep #: [id number] : 1970 55 From: Brittani Looney MD PCP: VJ Maloney Status:ADM IN Location: [place] [address] Providers Date of Admission: 06/11/25 Date of Discharge: 06/16/25 Primary Care Physician: VJ Maloney Consultations 06/11/25 05:20 Consult: 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 Anasarca compounded by underlying chronic bilateral lower extremity lymphedema with concern for bilateral lower extremity cellulitis, unable to rule out possibility of acute HFpEF #2. Pseudomonal bacteremia of unclear specific etiology, 1 of 2 blood cultures positive #3. Morbid Obesity #4. Hypertension #5. Anxiety and depression #6. Asthma #7. Chronic anemia/iron deficiency anemia #8. MIGUEL on CPAP nightly #9. GERD #10. History stage III decubitus ulcer #11. CKD stage II per GFR trending Medications at Discharge Home Medications acetaminophen 500 mg capsule 1,000 mg PO Q6H PRN Pain 07/11/21 ferrous sulfate 325 mg (65 mg iron) tablet (FeroSul) 325 mg PO DAILY@1200 iron #30 tabs 08/01/21 venlafaxine 75 mg capsule,extended release 24 hr (Effexor XR) 225 mg (3 x 75 mg) PO DAILY depression #90 caps 09/03/21 lisinopril 10 mg tablet 10 mg PO DAILY blood pressure 07/24/23 nystatin 100,000 unit/gram topical powder (Nyamyc) 1 applic topical BID yeast infection 30 days #60 grams 07/31/23 cholecalciferol (vitamin D3) 1 tab PO DAILY supplement 04/04/24 valacyclovir 1 gram tablet 2,000 mg PO BID PRN cold sore 04/07/24 L.acidophil,salivari-Bifido bifidum-Strep thermoph 175 mg capsule 1 cap PO BID supplement 10 days #20 caps 05/09/24 BE-A6-S9-C9-Z2-Y9-B7-B12-vit C 1 tab PO DAILY vitamin 06/11/25 albuterol sulfate 2.5 mg/3 mL (0.083 %) solution for nebulization 2.5 mg continuous nebulization Q4H PRN PRN dyspnea 06/11/25 buspirone 5 mg tablet 5 mg PO BID mood 06/11/25 calcium carbonate (Ally-Cornell Heartburn Chew) 600 mg PO TID PRN dyspepsia 06/11/25 cholestyramine (with sugar) 4 gram oral powder 2 - 4 ea PO DAILY supp 06/11/25 multivitamin (Daily Multi-Vitamin tablet) 1 tab PO DAILY supp 06/11/25 pantoprazole 20 mg tablet,delayed release 20 mg PO DAILY stomach 06/11/25 furosemide 40 mg tablet (Lasix) 40 mg PO DAILY 30 days #30 tabs 06/16/25 levofloxacin 750 mg tablet 750 mg PO DAILY 6 days #6 tabs 06/16/25 Hospital Course Operations None Procedures 2-D Echocardiogram and EKG Summary of Care Provided Minutes Spent on Discharge: 35 Hospital Course: The patient is a 55 y/o F w/ PMHx: CKD stage II per GFR trending, chronic BL LE lymphedema, Morbid obesity, HTN, Anxiety and Depression, Asthma, Chronic anemia/Fe deficiency anemia, MIGUEL on CPAP q HS, GERD who presented to the [facility] ED 06/11/2025 with history of concern for bilateral lower extremity recurrent cellulitis with significant bilateral lower extremity swelling prompting eventual ED evaluation. Patient was initiated on IV antibiotic therapy and cultures were obtained with noted 1 of 2 blood cultures eventually positive for Pseudomonas treated with IV Zosyn eventually transition to oral Levaquin at discharge to complete antibiotic therapy but unclear exact source. Given significant venous stasis some suspicion for possible pulmonary venous congestion given difficulty with assessment on chest x-ray given habitus. Patient was transitioned eventually to a Lasix drip with significant diuresis undertaken with improvement of bilateral lower extremity swelling/anasarca as well as lessened erythematous appearance. 06/16/2025 echocardiogram with borderline LV systolic function with EF 45 to 50% with stage I diastolic dysfunction, mildly enlarged LA, mildly dilated aortic root. Patient was transitioned off of the IV Lasix drip and started on oral Lasix 40 mg daily with recommended follow-up with primary care physician for repeat basic metabolic panel to assure no electrolyte disturbances and continued normal renal function. TSH 2.840, magnesium 2.1. Patient given clinical improvement discharged to home with PCP follow-up as well as the wound care center given significant chronic lymphedema to assist with assuring bilateral lower extremity swelling is monitored potentially be fitted for outpatient compression stockings if appropriate. DAY OF DISCHARGE PROGRESS NOTE: Subjective: Patient without acute event overnight per self and nursing report. Patient does report feeling improved, abl (more content not included)...[facility] 06-15-2025 Progress [facility] Note Date/Time June 15, 2025 12:1 2pm [facility] Medical Records Department [address] [place] [address] Progress Note - Hospitalist 06/15/25730 MR#: [id number] Acct: [id number] Name: JESUSITA ENGLAND Rep #:[id number] : 1970 55 From: Antoni Abdul DO PCP: VJ Maloney Status:ADM IN Location: [place] [address] Reason for Visit Chief Complaint: Concern for recurrent lower extremity cellulitis Subjective Subjective Decreased edema. Getting up and ambulating without difficulty. Objective Data Objective Data Vital Signs: Vital Signs Temp Pulse Resp BP Pulse Ox O2 Del Method O2 Flow Rate 36.6 C 65 18 139/79 H 96 Room Air 2 06/15/25 03:50 06/15/25 03:50 06/15/25 03:50 06/15/25 03:50 06/15/25 03:50 06/15/25 03:50 06/14/25 17:18 Oxygen Flow Rate (L/min) 2 Oxygen Delivery Method Room Air Weight: 225.7 kg Body Mass Index (BMI) 88.1 Intake & Output: Intake and Output for Last 24 Hours 06/13/25 06/14/25 06/15/25 23:59 23:59 23:59 Intake Total 1195.7 / 1195.7 1516.92 / 1516.92 50 / 50 Output Total 8000 / 9800 5590 / 7290 3975 / 3975 Balance -6804.3 / -8604.3 -4073.08 / -5773.08 -3925 / -3925 Lab / Micro Data 06/14/25 07:00 06/15/25 05:47 Labs: Laboratory Results - last 24 hr 06/14/25 07:00: Sodium 137, Potassium 3.9, Chloride 93 L, Carbon Dioxide 31.0, Anion Gap 13, BUN 21 H, Creatinine 1.07, Estim Creat Clear Calc 112.46, Est GFR (MDRD) Non-Af 61, BUN/Creatinine Ratio 19.2, Glucose 119 H, Calcium 9.1 06/15/25 05:47: Sodium 137, Potassium 3.8, Chloride 93 L, Carbon Dioxide 31.3, Anion Gap 13, BUN 26 H, Creatinine 1.04, Estim Creat Clear Calc 114.68, Est GFR (MDRD) Non-Af 63, BUN/Creatinine Ratio 25.1 H, Glucose 123 H, Calcium 9.0 Micro: Microbiology 06/11/25 00:05 Blood Culture (Wb) - Anticubital Left Blood Culture - Preliminary No growth in 48 hours. 06/11/25 00:30 Urine, Catheterized Urine Culture - Final Culture exhibits no growth. 06/11/25 00:11 Blood Culture (Wb) - Anticubital Right Blood Culture - Final Pseudomonas aeruginosa 06/11/25 00:18 Mucosa - Nose SARS-CoV-2, Influenza & RSV (PCR) - Final Physical Exam Const alert and no apparent distress Constitutional Narrative: on room air. no respiratory distress. no conversational dyspnea. Resp normal respiratory effort and no retractions GI GI Narrative: obese. Extremity Extremity Narrative: decreased edema in LE bilaterally. Assessment & Plan Assessment/Plan (1) Anasarca: PLAN: Acute HFpEF. Chest x-ray is limited due to body habitus cannot rule out pulmonary vascular congestion. Patient with marked edema her lower extremities. I see venous stasis changes to her lower extremities without seeing any overt cellulitis. I feel much of her leg issues are more related with venous stasis changes as they are warm but patient does have marked lower extremity edema. Patient has been started now on a furosemide drip. Monitor closely Patient with marked edema her lower extremities. Kidney function seems to be tolerating. So we will continue the furosemide drip for now. (2) Bacteremia: PLAN: Pseudomonas unclear source. UA/UCx negative. continue pip/tazo. Could discharge with fluoroquinolone to complete a 10-day course of antibiotics (through 06/21) PLAN: Plan Chronic medical conditions: ? Class III obesity with MIGUEL and obesity hypoventilation syndrome: BMI 91 on admit. Complicates hospital course, care and prognosis. Weight loss recommended. Continue CPAP ? Hypertension: Will hold home lisinopril for now, restart as needed. ? GERD: Continue PPI. ? Anxiety/depression: Continue home BuSpar and venlafaxine. ? Asthma: Stable on room air at rest, not in acute exacerbation. Continue home short acting dilators as needed. ? Mild iron deficiency anemia: Hemoglobin 12.6 on admit, stable at baseline. Continue home iron supplement. ? History of stage III decubitus ulcer MIGUEL: On CPAP. DVT prophylaxis: Lovenox twice daily Disposition: Discussed with the patient. And she would like to continue with IVdiuresis as she is having improvement of her edema. Dermatitis reasonable hopefully just 1 or 2 more days here in the hospital particular since her blood pressure and creatinine are tolerating that. Charges/Coding Visit Charges Inpatient E&M: 87234 Subs Hosp L2 06/15/25 1212 <Electronically signed by Antoni Abdul DO> Cosigner Signature (if applicable): CC: ~ Signed [facility] Work Phone: [phone]) 833-487507-17-2025 Progress note [facility] Medical Records Department [address] [place] [address] Progress Note - Hospitalist 06/15/25730 MR#: [id number] Acct: [id number] Name: JESUSITA ENGLAND Rep #:[id number] : 1970 55 From: Antoni Abdul DO PCP: VJ Maloney Status:ADM IN Location: [place] [address] 1 Reason for Visit Chief Complaint: Concern for recurrent lower extremity cellulitis Subjective Subjective Decreased edema. Getting up and ambulating without difficulty. Objective Data Objective Data Vital Signs: Vital Signs Temp Pulse Resp BP Pulse Ox O2 Del Method O2 Flow Rate 36.6 C 65 18 139/79 H 96 Room Air 2 06/15/25 03:50 06/15/25 03:50 06/15/25 03:50 06/15/25 03:50 06/15/25 03:50 06/15/25 03:50 06/14/25 17:18 Oxygen Flow Rate (L/min) 2 Oxygen Delivery Method Room Air Weight: 225.7 kg Body Mass Index (BMI) 88.1 Intake & Output: Intake and Output for Last 24 Hours 06/13/25 06/14/25 06/15/25 23:59 23:59 23:59 Intake Total 1195.7 / 1195.7 1516.92 / 1516.92 50 / 50 Output Total 8000 / 9800 5590 / 7290 3975 / 3975 Balance -6804.3 / -8604.3 -4073.08 / -5773.08 -3925 / -3925 Lab / Micro Data 06/14/25 07:00 06/15/25 05:47 Labs: Laboratory Results - last 24 hr 06/14/25 07:00: Sodium 137, Potassium 3.9, Chloride 93 L, Carbon Dioxide 31.0, Anion Gap 13, BUN 21H, Creatinine 1.07, Estim Creat Clear Calc 112.46, Est GFR (MDRD) Non-Af 61, BUN/Creatinine Ratio 19.2, Glucose 119 H, Calcium 9.1 06/15/25 05:47: Sodium 137, Potassium 3.8, Chloride 93 L, Carbon Dioxide 31.3, Anion Gap 13, BUN 26H, Creatinine 1.04, Estim Creat Clear Calc 114.68, Est GFR (MDRD) Non-Af 63, BUN/Creatinine Ratio 25.1 H, Glucose 123 H, Calcium 9.0 Micro: Microbiology 06/11/25 00:05 Blood Culture (Wb) - Anticubital Left Blood Culture - Preliminary No growth in 48 hours. 06/11/25 00:30 Urine, Catheterized Urine Culture - Final Culture exhibits no growth. 06/11/25 00:11 Blood Culture (Wb) - Anticubital Right Blood Culture - Final Pseudomonas aeruginosa 06/11/25 00:18 Mucosa - Nose SARS-CoV-2, Influenza & RSV (PCR) - Final Physical Exam Const alert and no apparent distress Constitutional Narrative: on room air. no respiratory distress. no conversational dyspnea. Resp normal respiratory effort and no retractions GI GI Narrative: obese. Extremity Extremity Narrative: decreased edema in LE bilaterally. Assessment & Plan Assessment/Plan (1) Anasarca: PLAN: Acute HFpEF. Chest x-ray is limited due to body habitus cannot rule out pulmonary vascular congestion. Patient with marked edema her lower extremities. I see venous stasis changes to her lower extremities withoutseeing any overt cellulitis. I feel much of her leg issues are more related with venous stasis changes as they are warm but patient does have marked lower extremity edema. Patient has been started now on a furosemide drip. Monitor closely Patient with marked edema her lower extremities. Kidney function seems to be tolerating. So we willcontinue the furosemide drip for now. (2) Bacteremia: PLAN: Pseudomonas unclear source. UA/UCx negative. continue pip/tazo. Could discharge with fluoroquinolone to complete a 10-day course of antibiotics (through 06/21) PLAN: Plan Chronic medical conditions: ? Class III obesity with MIGUEL and obesity hypoventilation syndrome: BMI 91 on admit. Complicates hospital course, care and prognosis. Weight loss recommended. Continue CPAP ? Hypertension: Will hold home lisinopril for now, restart as needed. ? GERD: Continue PPI. ? Anxiety/depression: Continue home BuSpar and venlafaxine. ? Asthma: Stable on room air at rest, not in acute exacerbation. Continue home short acting dilators as needed. ? Mild iron deficiency anemia: Hemoglobin 12.6 on admit, stable at baseline. Continue home iron supplement. ? History of stage III decubitus ulcer MIGUEL: On CPAP. DVT prophylaxis: Lovenox twice daily Disposition: Discussed with the patient. And she would like to continue with IVdiuresis as she is having improvement of her edema. Dermatitis reasonable hopefully just 1 or 2 more days here in the hospital particular since her blood pressure and creatinine are tolerating that. Charges/Coding Visit Charges Inpatient E&M: 99324 Subs Hosp L2 06/15/25 1212 Cosigner Signature (if applicable): CC: ~ Signed [facility]07-16-2025 Progress note Author Antoni Abdul [facility] Note Date/Time June 14, 2025 1:56 pm [facility] Medical Records Department [address] [place] [address] Progress Note - Hospitalist 06/14/25 0817 MR#: [id number] Acct: [id number] Name: JESUSITA ENGLAND Rep #:[id number] : 1970 55 From: Antoni Abdul DO PCP: VJ Maloney Status:ADM IN Location: [place] [id number] Reason for Visit Chief Complaint: Concern for recurrent lower extremity cellulitis Subjective Subjective Improved edema on legs. Objective Data Objective Data Vital Signs: Vital Signs Temp Pulse Resp BP Pulse Ox O2 Del Method O2 Flow Rate 36.8 C 70 16 114/77 92 Room Air 2 06/14/25 03:10 06/14/25 03:10 06/14/25 03:10 06/14/25 03:10 06/14/25 03:10 06/14/25 03:10 06/13/25 08:10 Oxygen Flow Rate (L/min) 2 Oxygen Delivery Method Room Air Weight: 228.4 kg Body Mass Index (BMI) 89.1 Intake & Output: Intake and Output for Last 24 Hours 06/12/25 06/13/25 06/14/25 23:59 23:59 23:59 Intake Total 690 / 690 1195.7 / 1195.7 50 / 50 Output Total 22053 / 18664 8000 / 9800 3400 / 3400 Balance -9410 / -15335 -6804.3 / -8604.3 -3350 / -3350 Lab / Micro Data 06/14/25 07:00 06/14/25 07:00 Labs: Laboratory Results - last 24 hr 06/14/25 07:00: WBC 5.6, RBC 5.18, Hgb 13.9, Hct 42.7, MCV 82.4, MCH 26.8 L, MCHC 32.6, RDW Std Deviation 43.9, RDW Coeff of Rani 14.6, Plt Count 156, MPV 9.6, Immature Gran % (Auto) 0.500, Neut % (Auto) 70.4 H, Lymph % (Auto) 16.4 L, [place]old[place] % (Auto) 12.1 H, Eos % (Auto) 0.2, Baso % (Auto) 0.4, Absolute Neuts (auto)3.9, Absolute Lymphs (auto) 0.91, Nucleated RBC % 0 Micro: Microbiology 06/11/25 00:05 Blood Culture (Wb) - Anticubital Left Blood Culture - Preliminary No growth in 48 hours. 06/11/25 00:30 Urine, Catheterized Urine Culture - Final Culture exhibits no growth. 06/11/25 00:11 Blood Culture (Wb) - Anticubital Right Blood Culture - Final Pseudomonas aeruginosa 06/11/25 00:18 Mucosa - Nose SARS-CoV-2, Influenza & RSV (PCR) - Final Physical Exam Const alert and no apparent distress HEENT head/scalp atraumatic and moist oral mucous membranes Resp normal respiratory effort, no retractions, no use of accessory muscles and clearto auscultation bilaterally Cardio regular rate, regular rhythm, S1 normal heart sound and S2 normal heart sound GI normal to inspection, nondistended, normoactive bowel sounds, soft to palpation,non-tender and non-distended Extremity normal to inspection and full ROM Assessment & Plan Assessment/Plan (1) Anasarca: PLAN: Acute HFpEF. Chest x-ray is limited due to body habitus cannot rule out pulmonary vascular congestion. Patient with marked edema her lower extremities. I see venous stasis changes to her lower extremities without seeing any overt cellulitis. I feel much of her leg issues are more related with venous stasis changes as they are warm but patient does have marked lower extremity edema. Patient has been started now on a furosemide drip. Monitor closely Patient with marked edema her lower extremities. Kidney function seems to be tolerating. So we will continue the furosemide drip for now. (2) Bacteremia: PLAN: Pseudomonas unclear source. UA/UCx negative. continue pip/tazo. Could discharge with fluoroquinolone to complete a 10-day course of antibiotics. PLAN: Plan Chronic medical conditions: ? Class III obesity with MIGUEL and obesity hypoventilation syndrome: BMI 91 on admit. Complicates hospital course, care and prognosis. Weight loss recommended. Continue CPAP ? Hypertension: Will hold home lisinopril for now, restart as needed. ? GERD: Continue PPI. ? Anxiety/depression: Continue home BuSpar and venlafaxine. ? Asthma: Stable on room air at rest, not in acute exacerbation. Continue home short acting dilators as needed. ? Mild iron deficiency anemia: Hemoglobin 12.6 on admit, stable at baseline. Continue home iron supplement. ? History of stage III decubitus ulcer MIGUEL: On CPAP. DVT prophylaxis: Lovenox twice daily Charges/Coding Visit Charges Inpatient E&M: 65976 Subs Hosp L2 06/14/25 8496 <Electronically signed by Antoni Abdul DO> Cosigner Signature (if applicable): CC: ~ Signed [facility] Work Phone: [phone]) 134-372707-16-2025 Progress note [facility] Medical Records Department [address] [place] [address] Progress Note - Hospitalist 06/14/25816 MR#: [id number] Acct: [id number] Name: JESUSITA ENGLAND Rep #:[id number] : 1970 55 From: Antoni Abdul DO PCP: VJ Maloney Status:ADM IN Location: [place] [id number] Reason for Visit Chief Complaint: Concern for recurrent lower extremity cellulitis Subjective Subjective Improved edema on legs. Objective Data Objective Data Vital Signs: Vital Signs Temp Pulse Resp BP Pulse Ox O2 Del Method O2 Flow Rate 36.8 C 70 16 114/77 92 Room Air 2 06/14/25 03:10 06/14/25 03:10 06/14/25 03:10 06/14/25 03:10 06/14/25 03:10 06/14/25 03:10 06/13/25 08:10 Oxygen Flow Rate (L/min) 2 Oxygen Delivery Method Room Air Weight: 228.4 kg Body Mass Index (BMI) 89.1 Intake & Output: Intake and Output for Last 24 Hours 06/12/25 06/13/25 06/14/25 23:59 23:59 23:59 Intake Total 690 / 690 1195.7 / 1195.7 50 / 50 Output Total 82787 / 96651 8000 / 9800 3400 / 3400 Balance -9410 / -18056 -6804.3 / -8604.3 -3350 / -3350 Lab / Micro Data 06/14/25 07:00 06/14/25 07:00 Labs: Laboratory Results - last 24 hr 06/14/25 07:00: WBC 5.6, RBC 5.18, Hgb 13.9, Hct 42.7, MCV 82.4, MCH 26.8 L, MCHC 32.6, RDW Std Deviation 43.9, RDW Coeff of Rani 14.6, Plt Count 156, MPV 9.6, Immature Gran % (Auto) 0.500, Neut % (Auto) 70.4 H, Lymph % (Auto) 16.4 L, [place] % (Auto) 12.1 H, Eos % (Auto) 0.2, Baso % (Auto) 0.4, Absolute Neuts (auto)3.9, Absolute Lymphs (auto) 0.91, Nucleated RBC % 0 Micro: Microbiology 06/11/25 00:05 Blood Culture (Wb) - Anticubital Left Blood Culture - Preliminary No growth in 48 hours. 06/11/25 00:30 Urine, Catheterized Urine Culture - Final Culture exhibits no growth. 06/11/25 00:11 Blood Culture (Wb) - Anticubital Right Blood Culture - Final Pseudomonas aeruginosa 06/11/25 00:18 Mucosa - Nose SARS-CoV-2, Influenza & RSV (PCR) - Final Physical Exam Const alert and no apparent distress HEENT head/scalp atraumatic and moist oral mucous membranes Resp normal respiratory effort, no retractions, no use of accessory muscles and clearto auscultation bilaterally Cardio regular rate, regular rhythm, S1 normal heart sound and S2 normal heart sound GI normal to inspection, nondistended, normoactive bowel sounds, soft to palpation,non-tender and non-distended Extremity normal to inspection and full ROM Assessment & Plan Assessment/Plan (1) Anasarca: PLAN: Acute HFpEF. Chest x-ray is limited due to body habitus cannot rule out pulmonary vascular congestion. Patient with marked edema her lower extremities. I see venous stasis changes to her lower extremities withoutseeing any overt cellulitis. I feel much of her leg issues are more related with venous stasis changes as they are warm but patient does have marked lower extremity edema. Patient has been started now on a furosemide drip. Monitor closely Patient with marked edema her lower extremities. Kidney function seems to be tolerating. So we willcontinue the furosemide drip for now. (2) Bacteremia: PLAN: Pseudomonas unclear source. UA/UCx negative. continue pip/tazo. Could discharge with fluoroquinolone to complete a 10-day course of antibiotics. PLAN: Plan Chronic medical conditions: ? Class III obesity with MIGUEL and obesity hypoventilation syndrome: BMI 91 on admit. Complicates hospital course, care and prognosis. Weight loss recommended. Continue CPAP ? Hypertension: Will hold home lisinopril for now, restart as needed. ? GERD: Continue PPI. ? Anxiety/depression: Continue home BuSpar and venlafaxine. ? Asthma: Stable on room air at rest, not in acute exacerbation. Continue home short acting dilators as needed. ? Mild iron deficiency anemia: Hemoglobin 12.6 on admit, stable at baseline. Continue home iron supplement. ? History of stage III decubitus ulcer MIGUEL: On CPAP. DVT prophylaxis: Lovenox twice daily Charges/Coding Visit Charges Inpatient E&M: 57656 Subs Hosp L2 06/14/25 4043 Cosigner Signature (if applicable): CC: ~ Signed [facility]07-15-2025 Progress note Author Antoni Abdul [facility] Note Date/Time June 13, 2025 12:4 7pm [facility] Medical Records Department [address] [place] [address] Progress Note - Hospitalist 06/13/25 0758 MR#: [id number] Acct: [id number] Name: JESUSITA ENGLAND Rep #:[id number] : 1970 55 From: Antoni Abdul DO PCP: VJ Maloney Status:ADM IN Location: [place] [address] Reason for Visit Chief Complaint: Concern for recurrent lower extremity cellulitis Subjective Subjective Fever has broke. Still with LE edema. Objective Data Objective Data Vital Signs: Vital Signs Temp Pulse Resp BP Pulse Ox O2 Del Method O2 Flow Rate 36.8 C 69 18 123/67 H 94 Room Air 2 06/13/25 03:30 06/13/25 03:30 06/13/25 03:30 06/13/25 03:30 06/13/25 03:30 06/13/25 03:30 06/11/25 15:27 Oxygen Flow Rate (L/min) 2 Oxygen Delivery Method Room Air Weight: 227.3 kg Body Mass Index (BMI) 88.7 Intake & Output: Intake and Output for Last 24 Hours 06/11/25 06/12/25 06/13/25 23:59 23:59 23:59 Intake Total 5700 / 5700 690 / 690 50 / 50 Output Total 2700 / 4100 21538 / 04525 6200 / 6200 Balance 3000 / 1600 -9410 / -06197 -6150 / -6150 Lab / Micro Data 06/11/25 06:20 06/13/25 06:37 Labs: Laboratory Results - last 24 hr 06/12/25 08:51: Sodium 137, Potassium 4.0, Chloride 103, Carbon Dioxide 23.8, Anion Gap 10, BUN 12, Creatinine 0.77, Estim Creat Clear Calc 155.71, Est GFR (MDRD) Non-Af 90, BUN/Creatinine Ratio 15.4, Glucose 112 H, Calcium 8.5 06/12/25 13:03: Random Vancomycin 16.1 H 06/13/25 06:37: Sodium 138, Potassium 3.8, Chloride 96 L, Carbon Dioxide 29.9, Anion Gap 13, BUN 14, Creatinine 0.87, Estim Creat Clear Calc 137.81, Est GFR (MDRD) Non-Af 78, BUN/Creatinine Ratio 16.1, Glucose 116 H, Calcium 9.0 Micro: Microbiology 06/11/25 00:11 Blood Culture (Wb) - Anticubital Right Blood Culture - Final Pseudomonas aeruginosa 06/11/25 00:18 Mucosa - Nose SARS-CoV-2, Influenza & RSV (PCR) - Final Physical Exam Const alert and no apparent distress HEENT head/scalp atraumatic and moist oral mucous membranes Resp normal respiratory effort, no retractions, no use of accessory muscles and clearto auscultation bilaterally Cardio regular rate, regular rhythm, S1 normal heart sound and S2 normal heart sound GI normal to inspection, nondistended, normoactive bowel sounds, soft to palpation,non-tender and non-distended Extremity normal to inspection Neuro Sensorium / Orientation: awake and alert Assessment & Plan Assessment/Plan (1) Anasarca: PLAN: Acute HFpEF. Chest x-ray is limited due to body habitus cannot rule out pulmonary vascular congestion. Patient with marked edema her lower extremities. I see venous stasis changes to her lower extremities without seeing any overt cellulitis. I feel much of her leg issues are more related with venous stasis changes as they are warm but patient does have marked lower extremity edema. Patient has been started now on a furosemide drip. Monitor closely Patient with marked edema her lower extremities. Kidney function seems to be tolerating. So we will continue the furosemide drip for now. (2) Bacteremia: PLAN: Pseudomonas unclear source. UA/UCx negative. continue pip/tazo. DC vancomycin PLAN: Plan Chronic medical conditions: ? Class III obesity with MIGUEL and obesity hypoventilation syndrome: BMI 91 on admit. Complicates hospital course, care and prognosis. Weight loss recommended. Continue CPAP ? Hypertension: Will hold home lisinopril for now, restart as needed. ? GERD: Continue PPI. ? Anxiety/depression: Continue home BuSpar and venlafaxine. ? Asthma: Stable on room air at rest, not in acute exacerbation. Continue home short acting dilators as needed. ? Mild iron deficiency anemia: Hemoglobin 12.6 on admit, stable at baseline. Continue home iron supplement. ? History of stage III decubitus ulcer MIGUEL: On CPAP. DVT prophylaxis: Lovenox twice daily Charges/Coding Visit Charges Inpatient E&M: 65877 Subs Hosp L2 06/13/25 1247 <Electronically signed by Antoni Abdul DO> Cosigner Signature (if applicable): CC: ~ Signed [facility] Work Phone: 1(302) 569-735207-15-2025 Progress note [facility] Medical Records Department [address] [place] [address] Progress Note - Hospitalist 06/13/25 0758 MR#: [id number] Acct: [id number] Name: JESUSITA ENGLAND Rep #:[id number] : 1970 55 From: Antoni Abdul DO PCP: VJ Maloney Status:ADM IN Location: [place] [address] Reason for Visit Chief Complaint: Concern for recurrent lower extremity cellulitis Subjective Subjective Fever has broke. Still with LE edema. Objective Data Objective Data Vital Signs: Vital Signs Temp Pulse Resp BP Pulse Ox O2 Del Method O2 Flow Rate 36.8 C 69 18 123/67 H 94 Room Air 2 06/13/25 03:30 06/13/25 03:30 06/13/25 03:30 06/13/25 03:30 06/13/25 03:30 06/13/25 03:30 06/11/25 15:27 Oxygen Flow Rate (L/min) 2 Oxygen Delivery Method Room Air Weight: 227.3 kg Body Mass Index (BMI) 88.7 Intake & Output: Intake and Output for Last 24 Hours 06/11/25 06/12/25 06/13/25 23:59 23:59 23:59 Intake Total 5700 / 5700 690 / 690 50 / 50 Output Total 2700 / 4100 23081 / 70730 6200 / 6200 Balance 3000 / 1600 -9410 / -10183 -6150 / -6150 Lab / Micro Data 06/11/25 06:20 06/13/25 06:37 Labs: Laboratory Results - last 24 hr 06/12/25 08:51: Sodium 137, Potassium 4.0, Chloride 103, Carbon Dioxide 23.8, Anion Gap 10, BUN 12,Creatinine 0.77, Estim Creat Clear Calc 155.71, Est GFR (MDRD) Non-Af 90, BUN/Creatinine Ratio 15.4, Glucose 112 H, Calcium 8.5 06/12/25 13:03: Random Vancomycin 16.1 H 06/13/25 06:37: Sodium 138, Potassium 3.8, Chloride 96 L, Carbon Dioxide 29.9, Anion Gap 13, BUN 14, Creatinine 0.87, Estim Creat Clear Calc 137.81, Est GFR (MDRD) Non-Af 78, BUN/Creatinine Ratio 16.1, Glucose 116 H, Calcium 9.0 Micro: Microbiology 06/11/25 00:11 Blood Culture (Wb) - Anticubital Right Blood Culture - Final Pseudomonas aeruginosa 06/11/25 00:18 Mucosa - Nose SARS-CoV-2, Influenza & RSV (PCR) - Final Physical Exam Const alert and no apparent distress HEENT head/scalp atraumatic and moist oral mucous membranes Resp normal respiratory effort, no retractions, no use of accessory muscles and clearto auscultation bilaterally Cardio regular rate, regular rhythm, S1 normal heart sound and S2 normal heart sound GI normal to inspection, nondistended, normoactive bowel sounds, soft to palpation,non-tender and non-distended Extremity normal to inspection Neuro Sensorium / Orientation: awake and alert Assessment & Plan Assessment/Plan (1) Anasarca: PLAN: Acute HFpEF. Chest x-ray is limited due to body habitus cannot rule out pulmonary vascular congestion. Patient with marked edema her lower extremities. I see venous stasis changes to her lower extremities withoutseeing any overt cellulitis. I feel much of her leg issues are more related with venous stasis changes as they are warm but patient does have marked lower extremity edema. Patient has been started now on a furosemide drip. Monitor closely Patient with marked edema her lower extremities. Kidney function seems to be tolerating. So we willcontinue the furosemide drip for now. (2) Bacteremia: PLAN: Pseudomonas unclear source. UA/UCx negative. continue pip/tazo. DC vancomycin PLAN: Plan Chronic medical conditions: ? Class III obesity with MIGUEL and obesity hypoventilation syndrome: BMI 91 on admit. Complicates hospital course, care and prognosis. Weight loss recommended. Continue CPAP ? Hypertension: Will hold home lisinopril for now, restart as needed. ? GERD: Continue PPI. ? Anxiety/depression: Continue home BuSpar and venlafaxine. ? Asthma: Stable on room air at rest, not in acute exacerbation. Continue home short acting dilators as needed. ? Mild iron deficiency anemia: Hemoglobin 12.6 on admit, stable at baseline. Continue home iron supplement. ? History of stage III decubitus ulcer MIGUEL: On CPAP. DVT prophylaxis: Lovenox twice daily Charges/Coding Visit Charges Inpatient E&M: 99681 Subs Hosp L2 06/13/25 1247 Cosigner Signature (if applicable): CC: ~ Signed [facility]07-14-2025 Consult note Author Genna Fraser [facility] Note Date/Time June 12, 2025 3:58 pm [facility] Medical Records Department [address] [place] [address] Pharmacokinetic/Renal -Consult 06/12/25 0150 MR#: [id number] Acct: [id number] Name: JESUSITA ENGLAND Rep #:[id number] : 1970 55 From: Genna Fraser PCP: VJ Maloney Status:ADM IN Location: [place] [address] Consult Antibiotic Management Pharmacy has been consulted to manage selected antibiotic: Vancomycin Type of Intervention Type of Consult: Follow-up Suspected Infection Suspected Infection: Skin/Soft tissue Labs Labs: Sodium 135 mmol/L (133-145) 06/11/25 06:20 Potassium 3.6 mmol/L (3.3-5.1) 06/11/25 06:20 Chloride 101 mmol/L (98-108) 06/11/25 06:20 Carbon Dioxide 22.4 mmol/L (21.0-32.0) 06/11/25 06:20 Anion Gap 11 (5-15) 06/11/25 06:20 BUN 16 mg/dL (4-19) 06/11/25 06:20 Creatinine 0.91 mg/dL (0.70-1.20) 06/11/25 06:20 Est GFR (MDRD) Non-Af 73 (>60) 06/11/25 06:20 BUN/Creatinine Ratio 17.5 RATIO (10-20) 06/11/25 06:20 Glucose 115 mg/dL (70-99) H 06/11/25 06:20 Vancomycin Trough 24.4 ug/mL (5.0-15.0) H 06/12/25 00:45 Microbiology Microbiology: Microbiology 06/11/25 00:11 Blood Culture (Wb) - Venous Blood Culture - Preliminary 06/11/25 00:18 Mucosa - Nose SARS-CoV-2, Influenza & RSV (PCR) - Final Pharmacy Plan for Drug Dosing Pharmacy Plan for Drug Dosing: VANCOMYCIN LEVEL RECEIVED Current Vancomycin Dose: 1500MG Q8 Number of Doses Received: 3 Vancomycin Level: 24.4 MG/DL Hours Since Last Dose: 7.5 Renal Function: SCr 0.91 mg/dL, CrCl 131 mL/min Renal Function Trend: unchanged Lab/Micro: blood cx pending (prelim GNR), urine cx pending Vancomycin Plan/Comments: 7.5 hour trough was supratherapeutic at 24.4 mg/dL (goal 15-20). Will hold dosing for now and repeat a level in 12 hours. Pending Level: 06/12/25 @ 1300 Pharmacy Service will continue to monitor and adjust dosing as required. 06/12/25 0150 <Electronically signed by Genna Fraser> Date _ Genna Fraser 06/12/25 1558 <Electronically signed by Antoni Abdul DO> Cosigner Signature (if applicable): Date Antoni Abdul DO CC: ~ Signed [facility] Work Phone: 1(818) 239-350907-14-2025 Consult note Author Hayde Ruff [facility] Note Date/Time June 12, 2025 2:13 pm [facility] Medical Records Department [address] [place] [address] Pharmacokinetic/Renal -Consult 06/12/25 1413 MR#: [id number] Acct: [id number] Name: JESUSITA ENGLAND Rep #:[id number] 5 : 1970 55 From: Hayde Ruff PCP: VJ Maloney Status:ADM IN Location: [place] [address] Consult Antibiotic Management Pharmacy has been consulted to manage selected antibiotic: Vancomycin Type of Intervention Type of Consult: Follow-up Labs Labs: Sodium 137 mmol/L (133-145) 06/12/25 08:51 Potassium 4.0 mmol/L (3.3-5.1) 06/12/25 08:51 Chloride 103 mmol/L (98-108) 06/12/25 08:51 Carbon Dioxide 23.8 mmol/L (21.0-32.0) 06/12/25 08:51 Anion Gap 10 (5-15) 06/12/25 08:51 BUN 12 mg/dL (4-19) 06/12/25 08:51 Creatinine 0.77 mg/dL (0.70-1.20) 06/12/25 08:51 Est GFR (MDRD) Non-Af 90 (>60) 06/12/25 08:51 BUN/Creatinine Ratio 15.4 RATIO (10-20) 06/12/25 08:51 Glucose 112 mg/dL (70-99) H 06/12/25 08:51 Vancomycin Trough 24.4 ug/mL (5.0-15.0) H 06/12/25 00:45 Random Vancomycin 16.1 ug/mL (0.0-15.0) H 06/12/25 13:03 Microbiology Microbiology: Microbiology 06/11/25 00:11 Blood Culture (Wb) - Anticubital Right Blood Culture - Preliminary GNR Poss Pseudomonas sp 06/11/25 00:18 Mucosa - Nose SARS-CoV-2, Influenza & RSV (PCR) - Final Goal Trough Goal Trough: 15-20 mcg/mL Pharmacy Plan for Drug Dosing Pharmacy Plan for Drug Dosing: VANCOMYCIN LEVEL RECEIVED Current Vancomycin Dose: ON HOLD- was previously on 1500mg IV Q8h Number of Doses Received: 3 (loading dose + 2 scheduled doses) Vancomycin Level: 16.1 Hours Since Last Dose: 21hr Renal Function: 0.77 Renal Function Trend: stable Lab/Micro: BCx growing GNR, poss pseudomonas spp Vancomycin Plan/Comments: Patient had a trough drawn which resulted in a value of 16.1 (goal 15-20). patient is now within therapeutic goal of vancomycin, so dosing will be resumed. Will start patient on 2000mg IV Q24hr 06/12 @1500 for a predicted trough of 18.5 per vancomycin calculator. Pending Level: 06/14/25 @1430, prior to 3rd dose of new regimen per protocol Pharmacy Service will continue to monitor and adjust dosing as required. 06/12/25 1413 <Electronically signed by Hayde Ruff > Date _ Hayde Ruff Cosigner Signature (if applicable): Date CC: ~ Signed [facility] Work Phone: [phone] 262-921207-14-2025 Consult note [facility] Medical Records Department [address] [place] [address] Pharmacokinetic/Renal -Consult 06/12/25 0150 MR#: [id number] Acct: [id number] Name: JESUSITA ENGLAND Rep #:[id number] 2 : 1970 55 From: Genna Fraser PCP: VJ Maloney Status:ADM IN Location: [place] [address] Consult Antibiotic Management Pharmacy has been consulted to manage selected antibiotic: Vancomycin Type of Intervention Type of Consult: Follow-up Suspected Infection Suspected Infection: Skin/Soft tissue Labs Labs: Sodium 135 mmol/L (133-145) 06/11/25 06:20 Potassium 3.6 mmol/L (3.3-5.1) 06/11/25 06:20 Chloride 101 mmol/L (98-108) 06/11/25 06:20 Carbon Dioxide 22.4 mmol/L (21.0-32.0) 06/11/25 06:20 Anion Gap 11 (5-15) 06/11/25 06:20 BUN 16 mg/dL (4-19) 06/11/25 06:20 Creatinine 0.91 mg/dL (0.70-1.20) 06/11/25 06:20 Est GFR (MDRD) Non-Af 73 (>60) 06/11/25 06:20 BUN/Creatinine Ratio 17.5 RATIO (10-20) 06/11/25 06:20 Glucose 115 mg/dL (70-99) H 06/11/25 06:20 Vancomycin Trough 24.4 ug/mL (5.0-15.0) H 06/12/25 00:45 Microbiology Microbiology: Microbiology 06/11/25 00:11 Blood Culture (Wb) - Venous Blood Culture - Preliminary 06/11/25 00:18 Mucosa - Nose SARS-CoV-2, Influenza & RSV (PCR) - Final Pharmacy Plan for Drug Dosing Pharmacy Plan for Drug Dosing: VANCOMYCIN LEVEL RECEIVED Current Vancomycin Dose: 1500MG Q8 Number of Doses Received: 3 Vancomycin Level: 24.4 MG/DL Hours Since Last Dose: 7.5 Renal Function: SCr 0.91 mg/dL, CrCl 131 mL/min Renal Function Trend: unchanged Lab/Micro: blood cx pending (prelim GNR), urine cx pending Vancomycin Plan/Comments: 7.5 hour trough was supratherapeutic at 24.4 mg/dL (goal 15-20). Will hold dosing for now and repeat a level in 12 hours. Pending Level: 06/12/25 @ 1300 Pharmacy Service will continue to monitor and adjust dosing as required. 06/12/25 0150 Date _ Genna Fraser 06/12/25 1558 DO> Jakeigner Signature (if applicable): Date Antoni Abdul DO CC: ~ Signed [facility]07-14-2025 Consult note [facility] Medical Records Department [address] [place] [address] Pharmacokinetic/Renal -Consult 06/12/25 1413 MR#: [id number] Acct: [id number] Name: JESUSITA ENGLAND Rep #:[id number] 5 : 1970 55 From: Hayde Ruff PCP: VJ Maloney Status:ADM IN Y Location: [place] [address] Consult Antibiotic Management Pharmacy has been consulted to manage selected antibiotic: Vancomycin Type of Intervention Type of Consult: Follow-up Labs Labs: Sodium 137 mmol/L (133-145) 06/12/25 08:51 Potassium 4.0 mmol/L (3.3-5.1) 06/12/25 08:51 Chloride 103 mmol/L (98-108) 06/12/25 08:51 Carbon Dioxide 23.8 mmol/L (21.0-32.0) 06/12/25 08:51 Anion Gap 10 (5-15) 06/12/25 08:51 BUN 12 mg/dL (4-19) 06/12/25 08:51 Creatinine 0.77 mg/dL (0.70-1.20) 06/12/25 08:51 Est GFR (MDRD) Non-Af 90 (>60) 06/12/25 08:51 BUN/Creatinine Ratio 15.4 RATIO (10-20) 06/12/25 08:51 Glucose 112 mg/dL (70-99) H 06/12/25 08:51 Vancomycin Trough 24.4 ug/mL (5.0-15.0) H 06/12/25 00:45 Random Vancomycin 16.1 ug/mL (0.0-15.0) H 06/12/25 13:03 Microbiology Microbiology: Microbiology 06/11/25 00:11 Blood Culture (Wb) - Anticubital Right Blood Culture - Preliminary GNR Poss Pseudomonas sp 06/11/25 00:18 Mucosa - Nose SARS-CoV-2, Influenza & RSV (PCR) - Final Goal Trough Goal Trough: 15-20 mcg/mL Pharmacy Plan for Drug Dosing Pharmacy Plan for Drug Dosing: VANCOMYCIN LEVEL RECEIVED Current Vancomycin Dose: ON HOLD- was previously on 1500mg IV Q8h Number of Doses Received: 3 (loading dose + 2 scheduled doses) Vancomycin Level: 16.1 Hours Since Last Dose: 21hr Renal Function: 0.77 Renal Function Trend: stable Lab/Micro: BCx growing GNR, poss pseudomonas spp Vancomycin Plan/Comments: Patient had a trough drawn which resulted in a value of 16.1 (goal 15-20). patient is now within therapeutic goal of vancomycin, so dosing will be resumed. Will start patient on 2000mg IV Q24hr 06/12 @1500 for a predicted trough of 18.5 per vancomycin calculator. Pending Level: 06/14/25 @1430, prior to 3rd dose of new regimen per protocol Pharmacy Service will continue to monitor and adjust dosing as required. 06/12/25 1413 > Date _ Hayde Josephfitobrenda Signature (if applicable): Date CC: ~ Signed [facility]07-14-2025 Progress note Author Antoni Abdul [facility] Note Date/Time June 12, 2025 11:4 1am [facility] Medical Records Department [address] [place] [address] Progress Note - Hospitalist 06/12/2503 MR#: [id number] Acct: [id number] Name: SAMANTAJESUSITA RAMONA Rep #:[id number] 7 : 1970 55 From: Antoni Abdul DO PCP: VJ Maloney Status:ADM IN Location: [place] [address] Reason for Visit Chief Complaint: Concern for recurrent lower extremity cellulitis Subjective Subjective Still has the redness on her legs. Objective Data Objective Data Vital Signs: Vital Signs Temp Pulse Resp BP Pulse Ox O2 Del Method O2 Flow Rate 36.9 C 75 16 114/63 95 CPAP 2 06/12/25 03:18 06/12/25 03:18 06/12/25 03:18 06/12/25 03:18 06/12/25 03:18 06/12/25 03:18 06/11/25 15:27 Oxygen Flow Rate (L/min) 2 Oxygen Delivery Method CPAP Weight: 227.3 kg Body Mass Index (BMI) 88.7 Intake & Output: Intake and Output for Last 24 Hours 06/10/25 06/11/25 06/12/25 23:59 23:59 23:59 Intake Total 5700 / 5700 50 / 50 Output Total 2700 / 4100 2200 / 2200 Balance 3000 / 1600 -2150 / -2150 Lab / Micro Data 06/11/25 06:20 06/12/25 08:51 Labs: Laboratory Results - last 24 hr 06/12/25 00:45: Vancomycin Trough 24.4 H Micro: Microbiology 06/11/25 00:11 Blood Culture (Wb) - Venous Blood Culture - Preliminary 06/11/25 00:18 Mucosa - Nose SARS-CoV-2, Influenza & RSV (PCR) - Final Physical Exam Const alert and no apparent distress Constitutional Narrative: On room air. No respiratory distress. No conversational dyspnea. HEENT head/scalp atraumatic Resp normal respiratory effort and no retractions Extremity Extremity Narrative: Marked edema in bilateral lower extremities with lymphedematous changes. Assessment & Plan Assessment/Plan (1) Anasarca: PLAN: Chest x-ray is limited due to body habitus cannot rule out pulmonary vascular congestion. Patient with marked edema her lower extremities. I see venous stasis changes to her lower extremities without seeing any overt cellulitis. Patient was having a fever, however. Though it is unclear if the fevers are related with cellulitis, which I doubt. Will continue with antibiotics and follow-up cultures. If cultures are negative then would discontinue antibiotics. I feel much of her leg issues are more related with venous stasis changes as they are warm but patient does have marked lower extremity edema. Patient has been started now on a furosemide drip. Monitor closely Patient with marked edema her lower extremities. Kidney function seems to be tolerating. So we will continue the furosemide drip for now. PLAN: Plan Chronic medical conditions: ? Class III obesity with MIGUEL and obesity hypoventilation syndrome: BMI 91 on admit. Complicates hospital course, care and prognosis. Weight loss recommended. Continue CPAP ? Hypertension: Will hold home lisinopril for now, restart as needed. ? GERD: Continue PPI. ? Anxiety/depression: Continue home BuSpar and venlafaxine. ? Asthma: Stable on room air at rest, not in acute exacerbation. Continue home short acting dilators as needed. ? Mild iron deficiency anemia: Hemoglobin 12.6 on admit, stable at baseline. Continue home iron supplement. ? History of stage III decubitus ulcer MIGUEL: On CPAP. DVT prophylaxis: Lovenox twice daily Charges/Coding Visit Charges Inpatient E&M: 28708 Subs Hosp L2 06/12/25 1142 <Electronically signed by Antoni Abdul DO> Cosigner Signature (if applicable): CC: ~ Signed [facility] Work Phone: 1(215) 321-917307-14-2025 Progress note [facility] Medical Records Department [address] [place] [address] Progress Note - Hospitalist 06/12/25 0803 MR#: [id number] Acct: [id number] Name: JESUSITA ENGLAND Rep #:[id number] 7 : 1970 55 From: Antoni Abdul DO PCP: VJ Maloney Status:ADM IN Location: [place] [address] Reason for Visit Chief Complaint: Concern for recurrent lower extremity cellulitis Subjective Subjective Still has the redness on her legs. Objective Data Objective Data Vital Signs: Vital Signs Temp Pulse Resp BP Pulse Ox O2 Del Method O2 Flow Rate 36.9 C 75 16 114/63 95 CPAP 2 06/12/25 03:18 06/12/25 03:18 06/12/25 03:18 06/12/25 03:18 06/12/25 03:18 06/12/25 03:18 06/11/25 15:27 Oxygen Flow Rate (L/min) 2 Oxygen Delivery Method CPAP Weight: 227.3 kg Body Mass Index (BMI) 88.7 Intake & Output: Intake and Output for Last 24 Hours 06/10/25 06/11/25 06/12/25 23:59 23:59 23:59 Intake Total 5700 / 5700 50 / 50 Output Total 2700 / 4100 2200 / 2200 Balance 3000 / 1600 -2150 / -2150 Lab / Micro Data 06/11/25 06:20 06/12/25 08:51 Labs: Laboratory Results - last 24 hr 06/12/25 00:45: Vancomycin Trough 24.4 H Micro: Microbiology 06/11/25 00:11 Blood Culture (Wb) - Venous Blood Culture - Preliminary 06/11/25 00:18 Mucosa - Nose SARS-CoV-2, Influenza & RSV (PCR) - Final Physical Exam Const alert and no apparent distress Constitutional Narrative: On room air. No respiratory distress. No conversational dyspnea. HEENT head/scalp atraumatic Resp normal respiratory effort and no retractions Extremity Extremity Narrative: Marked edema in bilateral lower extremities with lymphedematous changes. Assessment & Plan Assessment/Plan (1) Anasarca: PLAN: Chest x-ray is limited due to body habitus cannot rule out pulmonary vascular congestion. Patient with marked edema her lower extremities. I see venous stasis changes to her lower extremities without seeing any overt cellulitis. Patient was having a fever, however. Though it is unclear if the fevers are related with cellulitis, which I doubt. Will continue with antibiotics and follow-up cultures. If cultures are negative then would discontinue antibiotics. I feel much of her leg issues are more related with venous stasis changes as they are warm but patient does have marked lower extremity edema. Patient has been started now on a furosemide drip. Monitor closely Patient with marked edema her lower extremities. Kidney function seems to be tolerating. So we willcontinue the furosemide drip for now. PLAN: Plan Chronic medical conditions: ? Class III obesity with MIGUEL and obesity hypoventilation syndrome: BMI 91 on admit. Complicates hospital course, care and prognosis. Weight loss recommended. Continue CPAP ? Hypertension: Will hold home lisinopril for now, restart as needed. ? GERD: Continue PPI. ? Anxiety/depression: Continue home BuSpar and venlafaxine. ? Asthma: Stable on room air at rest, not in acute exacerbation. Continue home short acting dilators as needed. ? Mild iron deficiency anemia: Hemoglobin 12.6 on admit, stable at baseline. Continue home iron supplement. ? History of stage III decubitus ulcer MIGUEL: On CPAP. DVT prophylaxis: Lovenox twice daily Charges/Coding Visit Charges Inpatient E&M: 28840 Subs Hosp L2 06/12/25 1141 Cosigner Signature (if applicable): CC: ~ Signed [facility]07-14-2025 Consult note Author Genna Fraser [facility] Note Date/Time June 12, 2025 12:2 2am [facility] Medical Records Department [address] [place] [address] Pharmacokinetic/Renal -Consult 06/11/25 0636 MR#: [id number] Acct: [id number] Name: SAMANTAJESUSITA RAMONA Rep #:[id number] 2 : 1970 55 From: Genna Fraser PCP: VJ Maloney Status:ADM IN Y Location: [place] [address] Consult Antibiotic Management Pharmacy has been consulted to manage selected antibiotic: Vancomycin Type of Intervention Type of Consult: New start Suspected Infection Suspected Infection: Skin/Soft tissue Labs Labs: Sodium 134 mmol/L (133-145) 06/11/25 00:05 Potassium 4.6 mmol/L (3.3-5.1) 06/11/25 00:05 Chloride 96 mmol/L (98-108) L 06/11/25 00:05 Carbon Dioxide 26.1 mmol/L (21.0-32.0) 06/11/25 00:05 Anion Gap 12 (5-15) 06/11/25 00:05 BUN 19 mg/dL (4-19) 06/11/25 00:05 Creatinine 0.93 mg/dL (0.70-1.20) 06/11/25 00:05 Est GFR (MDRD) Non-Af 71 (>60) 06/11/25 00:05 BUN/Creatinine Ratio 20.2 RATIO (10-20) H 06/11/25 00:05 Glucose 130 mg/dL (70-99) H 06/11/25 00:05 Microbiology Microbiology: Microbiology 06/11/25 00:18 Mucosa - Nose SARS-CoV-2, Influenza & RSV (PCR) - Final Pharmacy Plan for Drug Dosing Pharmacy Plan for Drug Dosing: NEW START IV VANCOMYCIN Consulting Physician: Camilla Indication: cellulitis Goal Trough: 15-20 SrCr: 0.93 mg/dL CrCl: 136 mL/min Comments: loading dose of 2000mg given in ER 06/11 @ 0117 Vancomycin Dose: Will start 1500mg Q8 (@ 0900)and get a trough prior to 4th total dose per policy. Pending Level: 06/12/25 @ 0030 Pharmacy Service will continue to monitor and adjust dosing as required. 06/11/25 0636 <Electronically signed by Genna Fraser> Date _ Genna Fraser 06/12/25 0022 <Electronically signed by Mauri fernandez DO> Cosigner Signature (if applicable): Date Mauri Sampson DO CC: ~ Signed [facility] Work Phone: 1(127) 622-580507-14-2025 Consult note [facility] Medical Records Department [address] [place] [address] Pharmacokinetic/Renal -Consult 06/11/25 0636 MR#: [id number] Acct: [id number] Name: JESUSITA ENGLAND Rep #:[id number] 2 : 1970 55 From: Genna Fraser PCP: VJ Maloney Status:ADM IN Y Location: [place] [address] Consult Antibiotic Management Pharmacy has been consulted to manage selected antibiotic: Vancomycin Type of Intervention Type of Consult: New start Suspected Infection Suspected Infection: Skin/Soft tissue Labs Labs: Sodium 134 mmol/L (133-145) 06/11/25 00:05 Potassium 4.6 mmol/L (3.3-5.1) 06/11/25 00:05 Chloride 96 mmol/L (98-108) L 06/11/25 00:05 Carbon Dioxide 26.1 mmol/L (21.0-32.0) 06/11/25 00:05 Anion Gap 12 (5-15) 06/11/25 00:05 BUN 19 mg/dL (4-19) 06/11/25 00:05 Creatinine 0.93 mg/dL (0.70-1.20) 06/11/25 00:05 Est GFR (MDRD) Non-Af 71 (>60) 06/11/25 00:05 BUN/Creatinine Ratio 20.2 RATIO (10-20) H 06/11/25 00:05 Glucose 130 mg/dL (70-99) H 06/11/25 00:05 Microbiology Microbiology: Microbiology 06/11/25 00:18 Mucosa - Nose SARS-CoV-2, Influenza & RSV (PCR) - Final Pharmacy Plan for Drug Dosing Pharmacy Plan for Drug Dosing: NEW START IV VANCOMYCIN Consulting Physician: Camilla Indication: cellulitis Goal Trough: 15-20 SrCr: 0.93 mg/dL CrCl: 136 mL/min Comments: loading dose of 2000mg given in ER 06/11 @ 0117 Vancomycin Dose: Will start 1500mg Q8 (@ 0900)and get a trough prior to 4th total dose per policy. Pending Level: 06/12/25 @ 0030 Pharmacy Service will continue to monitor and adjust dosing as required. 06/11/25 0636 Date _ Genna Fraser 06/12/25 0022 director of recreation therapy DO> Cosigner Signature (if applicable): Date Mauri Sampson DO CC: ~ Signed [facility]07-13-2025 Progress note Author Antoni Abdul [facility] Note Date/Time June 11, 2025 12:1 2pm [facility] Medical Records Department [address] [place] [address] Progress Note - Hospitalist 06/11/25 0739 MR#: [id number] Acct: [id number] Name: JESUSITA ENGLAND Rep #:[id number] 2 : 1970 55 From: Antoni Abdul DO PCP: VJ Maloney Status:ADM IN Location: [place] [address] Reason for Visit Reason for Visit: Diagnoses Cellulitis of unspecified part of limb (06/11/25) Subjective Subjective Had been very anxious earlier per nursing. Currently on CPAP. States that her legs are more swollen. Objective Data Objective Data Vital Signs: Vital Signs Temp Pulse Resp BP Pulse Ox O2 Del Method O2 Flow Rate 37.9 C H 104 H 30 H 104/53 L 96 Nasal Cannula 2 06/11/25 05:20 06/11/25 05:20 06/11/25 05:20 06/11/25 05:20 06/11/25 05:20 06/11/25 05:30 06/11/25 05:30 Oxygen Flow Rate (L/min) 2 Oxygen Delivery Method Nasal Cannula Weight: 227.2 kg Body Mass Index (BMI) 88.7 Intake & Output: Intake and Output for Last 24 Hours 06/09/25 06/10/25 06/11/25 23:59 23:59 23:59 Intake Total 2640 / 2640 Output Total 1000 / 1000 Balance 1640 / 1640 Lab / Micro Data 06/11/25 06:20 06/11/25 06:20 Labs: Laboratory Results - last 24 hr 06/11/25 00:05: WBC 16.1 H, RBC 4.60, Hgb 12.6, Hct 39.1, MCV 85.0, MCH 27.4, MCHC 32.2, RDW Std Deviation 45.9 H, RDW Coeff of Rani 15.0 H, Plt Count 163, MPV9.5, Immature Gran % (Auto) 1.300 H, Neut % (Auto) 90.9 H, Lymph % (Auto) 2.0 L,[place] % (Auto) 5.7, Eos % (Auto) 0.0, Baso % (Auto) 0.1, Absolute Neuts (auto) 14.6 H, Absolute Lymphs (auto) 0.32 L, Nucleated RBC % 0, PT 13.6, INR 1.0, APTT29.1, Sodium 134, Potassium 4.6, Chloride 96 L, Carbon Dioxide 26.1, Anion Gap 12, BUN 19, Creatinine 0.93, Estim Creat Clear Calc 136.23, Est GFR (MDRD) Non-Af 71, BUN/Creatinine Ratio 20.2 H, Glucose 130 H, Hemoglobin A1c 6.2 H, Lactic Acid 2.4 H*, Calcium 9.4, Total Bilirubin 0.52, AST 30, ALT 24, Alkaline Phosphatase 88, Troponin T High Sens 12, NT pro BNP II 284, Total Protein 7.3, Albumin 4.0, Globulin 3.3, Albumin/Globulin Ratio 1.2 06/11/25 00:30: Urine Color Straw, Urine Clarity Clear, Urine pH 7.0, Ur Specific [place] 1.010, Urine Protein Negative, Urine Glucose (UA) Normal, UrineKetones Negative, Urine Occult Blood 10 H, Urine Nitrite Negative, Urine Bilirubin Negative, Urine Urobilinogen Normal, Ur Leukocyte Esterase Negative, Urine RBC 5-10 SEEN, Urine WBC 0 SEEN, Ur Squamous Epith Cells 5-10 SEEN, Urine Bacteria 0 SEEN, Urine Mucus 0 SEEN 06/11/25 02:13: Troponin T Hi Sens 2 Hr 14 06/11/25 04:05: Lactic Acid 2.2 H* 06/11/25 06:20: WBC 13.1 H, RBC 4.40, Hgb 12.0, Hct 36.1 L, MCV 82.0, MCH 27.3, MCHC 33.2, RDW Std Deviation 45.6 H, RDW Coeff of Rani 15.1 H, Plt Count 150, MPV9.2, Sodium 135, Potassium 3.6, Chloride 101, Carbon Dioxide 22.4, Anion Gap 11,BUN 16, Creatinine 0.91, Estim Creat Clear Calc 131.71, Est GFR (MDRD) Non-Af 73, BUN/Creatinine Ratio 17.5, Glucose 115 H, Calcium 8.5 Micro: Microbiology 06/11/25 00:18 Mucosa - Nose SARS-CoV-2, Influenza & RSV (PCR) - Final ABG Data ABG results: ABG 06/11/25 04:17 Specimen Type [place] Sample Site Not entered O2 % 2.0 VBG pH 7.41 VBG pO2 39 VBG HCO3 26 VBG Total CO2 28 VBG O2 Sat (Calc) 74 H VBG Base Excess 2 POC Mix VBG pCO2 Pt Tmp 41.7 O2 Delivery Device Cannula Radiography Diagnostic Testing: Radiology Impression Chest X-Ray 06/10/25 23:59 IMPRESSION: As above. Reading Location: [place] [address] Physical Exam Const alert and no apparent distress Constitutional Narrative: on BiPAP. HEENT head/scalp atraumatic and moist oral mucous membranes Resp normal respiratory effort, no retractions, no use of accessory muscles and clearto auscultation bilaterally Cardio regular rate, regular rhythm, S1 normal heart sound and S2 normal heart sound GI normal to inspection, nondistended, normoactive bowel sounds, soft to palpation and non-tender Extremity Extremity Narrative: Tight bilateral LE edema. Venous stasis changes. Neuro Sensorium / Orientation: awake Assessment & Plan Assessment/Plan (1) Anasarca: PLAN: Chest x-ray is limited due to body habitus cannot rule out pulmonary vascular congestion. Patient with marked edema her lower extremities. I see venous stasis changes to her lower extremities without seeing any overt cellulitis. Patient was having a fever, however. Though it is unclear if the fevers are related with cellulitis, which I doubt. Will continue with antibiotics and follow-up cultures. If cultures are negative then would discontinue antibiotics. I feel much of her leg issues are more related with venous stasis changes as they are warm but patient does have marked lower extremity edema. Patient has been started now on a furosemide drip. Monitor closely PLAN: Plan Chronic medical conditions: ? Class III obesity with MIGUEL and obesity hypoventilation syndrome: BMI 91 on admit. Complicates hospital course, care and prognosis. Weight loss recommended. Continue CPAP ? Hypertension: Will hold home lisinopril for now, restart as needed. ? GERD: Continue PPI. ? Anxiety/depression: Continue home BuSpar and venlafaxine. ? Asthma: Stable on room air at rest, not in acute exacerbation. Continue home short acting dilators as needed. ? Mild iron deficiency anemia: Hemoglobin 12.6 on admit, stable at baseline. Continue home iron supplement. ? History of stage III decubitus ulcer DVT prophylaxis: Lovenox twice daily Charges/Coding Visit Charges Inpatient E&M: 09725 Subs Hosp L2 06/11/25 1212 <Electronically signed by Antoni Abdul DO> Cosigner Signature (if applicable): CC: ~ Signed [facility] Work Phone: 1(581) 938-338707-13-2025 Progress note [facility] Medical Records Department [address] [place] [address] Progress Note - Hospitalist 06/11/25 0739 MR#: [id number] Acct: [id number] Name: JESUSITA ENGLAND Rep #:[id number] 2 : 1970 55 From: Antoni Abdul DO PCP: VJ Maloney Status:ADM IN Location: [place] [address] Reason for Visit Reason for Visit: Diagnoses Cellulitis of unspecified part of limb (06/11/25) Subjective Subjective Had been very anxious earlier per nursing. Currently on CPAP. States that her legs are more swollen. Objective Data Objective Data Vital Signs: Vital Signs Temp Pulse Resp BP Pulse Ox O2 Del Method O2 Flow Rate 37.9 C H 104 H 30 H 104/53 L 96 Nasal Cannula 2 06/11/25 05:20 06/11/25 05:20 06/11/25 05:20 06/11/25 05:20 06/11/25 05:20 06/11/25 05:30 06/11/25 05:30 Oxygen Flow Rate (L/min) 2 Oxygen Delivery Method Nasal Cannula Weight: 227.2 kg Body Mass Index (BMI) 88.7 Intake & Output: Intake and Output for Last 24 Hours 06/09/25 06/10/25 06/11/25 23:59 23:59 23:59 Intake Total 2640 / 2640 Output Total 1000 / 1000 Balance 1640 / 1640 Lab / Micro Data 06/11/25 06:20 06/11/25 06:20 Labs: Laboratory Results - last 24 hr 06/11/25 00:05: WBC 16.1 H, RBC 4.60, Hgb 12.6, Hct 39.1, MCV 85.0, MCH 27.4, MCHC 32.2, RDW Std Deviation 45.9 H, RDW Coeff of Rani 15.0 H, Plt Count 163, MPV9.5, Immature Gran % (Auto) 1.300 H, Neut% (Auto) 90.9 H, Lymph % (Auto) 2.0 L,[place] % (Auto) 5.7, Eos % (Auto) 0.0, Baso % (Auto) 0.1, Absolute Neuts (auto) 14.6 H, Absolute Lymphs (auto) 0.32 L, Nucleated RBC % 0, PT 13.6, INR 1.0, APTT29.1, Sodium 134, Potassium 4.6, Chloride 96 L, Carbon Dioxide 26.1, Anion Gap 12, BUN 19, Creatinine 0.93, Estim Creat Clear Calc 136.23, Est GFR (MDRD) Non-Af 71, BUN/Creatinine Ratio 20.2 H, Glucose 130 H, Hemoglobin A1c 6.2 H, Lactic Acid 2.4 H*, Calcium 9.4, Total Bilirubin 0.52, AST 30, ALT 24, Alkaline Phosphatase 88, Troponin T High Sens 12, NT pro BNP II 284, Total Protein 7.3, Albumin 4.0, Globulin 3.3, Albumin/Globulin Ratio 1.2 06/11/25 00:30: Urine Color Straw, Urine Clarity Clear, Urine pH 7.0, Ur Specific [place] 1.010, Urine Protein Negative, Urine Glucose (UA) Normal, UrineKetones Negative, Urine Occult Blood 10 H, Urine Nitrite Negative, Urine Bilirubin Negative, Urine Urobilinogen Normal, Ur Leukocyte Esterase Negative, Urine RBC 5-10 SEEN, Urine WBC 0 SEEN, Ur Squamous Epith Cells 5-10 SEEN, Urine Bacteria 0 SEEN, Urine Mucus 0 SEEN 06/11/25 02:13: Troponin T Hi Sens 2 Hr 14 06/11/25 04:05: Lactic Acid 2.2 H* 06/11/25 06:20: WBC 13.1 H, RBC 4.40, Hgb 12.0, Hct 36.1 L, MCV 82.0, MCH 27.3, MCHC 33.2, RDW Std Deviation 45.6 H, RDW Coeff of Rani 15.1 H, Plt Count 150, MPV9.2, Sodium 135, Potassium 3.6, Chloride 101, Carbon Dioxide 22.4, Anion Gap 11,BUN 16, Creatinine 0.91, Estim Creat Clear Calc 131.71, EstGFR (MDRD) Non-Af 73, BUN/Creatinine Ratio 17.5, Glucose 115 H, Calcium 8.5 Micro: Microbiology 06/11/25 00:18 Mucosa - Nose SARS-CoV-2, Influenza & RSV (PCR) - Final ABG Data ABG results: ABG 06/11/25 04:17 Specimen Type [place] Sample Site Not entered O2 % 2.0 VBG pH 7.41 VBG pO2 39 VBG HCO3 26 VBG Total CO2 28 VBG O2 Sat (Calc) 74 H VBG Base Excess 2 POC Mix VBG pCO2 Pt Tmp 41.7 O2 Delivery Device Cannula Radiography Diagnostic Testing: Radiology Impression Chest X-Ray 06/10/25 23:59 IMPRESSION: As above. Reading Location: [place] [address] Physical Exam Const alert and no apparent distress Constitutional Narrative: on BiPAP. HEENT head/scalp atraumatic and moist oral mucous membranes Resp normal respiratory effort, no retractions, no use of accessory muscles and clearto auscultation bilaterally Cardio regular rate, regular rhythm, S1 normal heart sound and S2 normal heart sound GI normal to inspection, nondistended, normoactive bowel sounds, soft to palpation and non-tender Extremity Extremity Narrative: Tight bilateral LE edema. Venous stasis changes. Neuro Sensorium / Orientation: awake Assessment & Plan Assessment/Plan (1) Anasarca: PLAN: Chest x-ray is limited due to body habitus cannot rule out pulmonary vascular congestion. Patient with marked edema her lower extremities. I see venous stasis changes to her lower extremities without seeing any overt cellulitis. Patient was having a fever, however. Though it is unclear if the fevers are related with cellulitis, which I doubt. Will continue with antibiotics and follow-up cultures. If cultures are negative then would discontinue antibiotics. I feel much of her leg issues are more related with venous stasis changes as they are warm but patient does have marked lower extremity edema. Patient has been started now on a furosemide drip. Monitor closely PLAN: Plan Chronic medical conditions: ? Class III obesity with MIGUEL and obesity hypoventilation syndrome: BMI 91 on admit. Complicates hospital course, care and prognosis. Weight loss recommended. Continue CPAP ? Hypertension: Will hold home lisinopril for now, restart as needed. ? GERD: Continue PPI. ? Anxiety/depression: Continue home BuSpar and venlafaxine. ? Asthma: Stable on room air at rest, not in acute exacerbation. Continue home short acting dilators as needed. ? Mild iron deficiency anemia: Hemoglobin 12.6 on admit, stable at baseline. Continue home iron supplement. ? History of stage III decubitus ulcer DVT prophylaxis: Lovenox twice daily Charges/Coding Visit Charges Inpatient E&M: 13887 Subs Hosp L2 06/11/25 1212 Cosigner Signature (if applicable): CC: ~ Signed [facility]07-13-2025 Discharge summary Author Reji George [facility] Note Date/Time June 11, 2025 7:39 am [facility] Medical Records Department [address] [place] [address] Emergency Department Summary 06/11/25 MR#: [id number] Acct: [id number] Name: JESUSITA ENGLAND Rep #:[id number] 1 : 1970 55 From: Reji scott DO PCP: VJ Maloney Status:ADM IN Location: [place] [address] HPI History of Present Illness Chief Complaint: Shortness of Breath Narrative Narrative: Chief complaint and HPI: Shortness of breath and bilateral lower extremity cellulitis. 55-year-old female with past medical history of morbid obesity, MIGUEL, IBS, depression presents for evaluation of bilateral lower extremity cellulitis and shortness of breath. Patient states for the past several days she has been having increased redness to her bilateral lower extremities. She states today she developed fever and exertional dyspnea. States she has a chronic cough. She denies any chest pain, abdominal pain, nausea, vomiting, dysuria. States she has baseline incontinence. Patient states she has a past medical history of recurrent sepsis. Review of systems: See HPI Medications: As listed on the chart Allergies: As listed on the chart PFSH: Per chart Vital signs: As listed on the chart. Reviewed. Physical exam: Gen: A&O x3, dyspneic when speaking although patient did just ambulate Head: Normocephalic, atraumatic Eyes: No sclera icterus, conjunctiva clear, PERRL ENT: Moist mucous membranes Neck: Trachea midline, No JVD CV: RRR, no murmurs, no peripheral edema Resp: Lungs diminished and difficult to auscultate secondary to her body habitus, dyspneic when speaking, tachypneic GI: Abd soft, non-distended, non-tender, no r/r/g Musc: Moves all extremity, no deformity Skin: Warm, dry, cellulitis of bilateral lower extremities Neuro: Alert, oriented, grossly intact, sensation intact Psych: Cooperative, appropriate mood and affect [facility] Medical History Hyperglycemia Failure of outpatient treatment Ascending aorta dilatation Abnormal echocardiogram IBS (irritable bowel syndrome) Depression Heel spur Osteoarthritis (arthritis due to wear and tear of joints) Asthma GERD without esophagitis Insomnia Anxiety Home Medications ?Medication ?Instructions ?Recorded ?Last Taken ?Type acetaminophen 500 mg capsule 1,000 mg PO Q6H PRN Pain 07/11/21 05/04/24 History ferrous sulfate 325 mg (65 mg 325 mg PO DAILY@1200 iro n #30 tabs 08/01/21 06/09/25 Rx iron) tablet (FeroSul) venlafaxine 75 mg capsule,extended 225 mg (3 x 75 mg) PO DAILY 09/03/21 06/09/25 Rx release 24 hr (Effexor XR) depression #90 caps lisinopril 10 mg tablet 10 mg PO DAILY blood pressur e 07/24/23 06/09/25 History nystatin 100,000 unit/gram topical 1 applic topical BI D yeast 07/31/23 05/04/24 Rx powder (Nyamyc) infection 30 days #60 grams cholecalciferol (vitamin D3) 1 tab PO DAILY supplement 04/04/24 06/09/25 History valacyclovir 1 gram tablet 2,000 mg PO BID PRN cold so re 04/07/24 Unknown History L.acidophil,salivari-Bifido 1 cap PO BID 10 days #20 c aps 05/09/24 06/09/25 Rx bifidum-Strep thermoph 175 mg capsule [id number]-B12-vit C 1 tab PO DAILY 06/11/25 Unknown History albuterol sulfate 2.5 mg/3 mL 2.5 mg continuous nebuli zation Q4H 06/11/25 Unknown History (0.083 %) solution for nebulization PRN PRN dyspnea buspirone 5 mg tablet 5 mg PO BID mood 06/11/25 History calcium carbonate (Ally-Cornell 600 mg PO TID PRN dysp epsia 06/11/25 06/09/25 History Heartburn Chew) cholestyramine (with sugar) 4 gram 2 - 4 ea PO DAILY s upp 06/11/25 06/09/25 History oral powder multivitamin (Daily Multi-Vitamin 1 tab PO DAILY supp 06/11/25 06/09/25 History tablet) pantoprazole 20 mg tablet,delayed 20 mg PO DAILY stoma ch 06/11/25 06/09/25 History release Allergy/AdvReac Type Severity Reaction Status Date / Time adhesive tape AdvReac Unknown Other Verified 04/04/24 19:07 Family History Mother Alzheimer's dementia Surgical History H/O foot surgery History of hip surgery History of cholecystectomy Social History household members: spouse housing: house number of children: 1 current occupational status: employed 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 For lunch she [...] junk. EXAM Physical Exam Const Vital Signs: 06/10/25 23:46 06/11/25 00:12 06/11/25 00:45 Temperature 102.9 F H Temperature Source Axillary Pulse Rate 107 H 91 Respiratory Rate 25 H 20 H Respiratory Effort Labored Respiratory Pattern Normal Blood Pressure 178/62 H Blood Pressure Mean 100 Pulse Ox 94 Oxygen Delivery Method Room Air 06/11/25 00:46 06/11/25 00:51 06/11/25 01:00 Temperature 101.2 F H 101.2 F H Temperature Source Oral Oral Pulse Rate 91 100 98 Respiratory Rate 16 20 H Respiratory Effort Respiratory Pattern Blood Pressure 138/76 H 130/70 H Blood Pressure Mean 96 90 Pulse Ox 96 95 Oxygen Delivery Method Room Air 06/11/25 02:22 06/11/25 02:24 Temperature 100.8 F H Temperature Source Oral Pulse Rate 94 Respiratory Rate 22 H Respiratory Effort Respiratory Pattern Blood Pressure 109/60 109/60 Blood Pressure Mean 76 76 Pulse Ox 96 Oxygen Delivery Method Room Air MDM MDM MDM Narrative Medical decision making narrative: 55-year-old female with past medical history of morbid obesity, MIGUEL, IBS, depression presents for evaluation of bilateral lower extremity cellulitis and shortness of breath. Patient states she has a recurrent history of sepsis. On presentation, patient is short of breath, dyspneic when speaking, tachypneic however she did just ambulate out of the car. She is tachycardic and febrile with a temperature of 102.9. Patient has cellulitis to the bilateral lower extremities. Her lungs are difficult to auscultate secondary to her body habitus. Patient meets sepsis criteria based on vital signs. Will do fluids based on ideal body weight, 30 cc/kg bolus ordered for ideal body weight which places her at 2 L. Tylenol and DuoNeb. Sepsis workup ordered. Will give Zosynand vancomycin prophylactically as differential diagnosis includes but is not limited to bilateral lower extremity cellulitis, pneumonia, viral illness, UTI, bacteremia, electrolyte abnormality, pneumonia. CBC with leukocytosis of 13.1. No anemia. Coagulation panel unremarkable. CMP unremarkable. Lactic acid elevated 2.4. Patient receiving fluids. Troponin unremarkable x 2. BNP unremarkable. UA negative for UTI. Patient's sepsis is likely secondary to herbilateral lower extremity cellulitis. Patient will warrant admission. Spoke with the hospitalist who accepted. After patient was accepted, she became tachypneic and began hyperventilating. DuoNeb was ordered. We did practice on her breathing techniques. We attempted ABG but this was unable to be obtained. VBG unremarkable. EKG: Interpreted by me/EM physician: EKG shows normal sinus rhythm without acute ischemic changes. Heart rate 84. Diagnostic: Interpreted by me/EM physician: Chest x-ray with cardiomegaly but without pneumonia, cardiomegaly, pneumothorax, large effusion. Radiology in agreement. Impression: 1. Sepsis secondary to bilateral lower extremity cellulitis 2. Lactic acidosis secondary to #1 3. Morbid obesity Lab Data Labs: Laboratory Results - last 24 hr 06/11/25 06/11/25 06/11/25 00:05 00:30 02:13 WBC 16.1 H RBC 4.60 Hgb 12.6 Hct 39.1 MCV 85.0 MCH 27.4 MCHC 32.2 RDW Std Deviation 45.9 H RDW Coeff of Rani 15.0 H Plt Count 163 MPV 9.5 Immature Gran % (Auto) 1.300 H Neut % (Auto) 90.9 H Lymph % (Auto) 2.0 L [place] % (Auto) 5.7 Eos % (Auto) 0.0 Baso % (Auto) 0.1 Absolute Neuts (auto) 14.6 H Absolute Lymphs (auto) 0.32 L Nucleated RBC % 0 PT 13.6 INR 1.0 APTT 29.1 Sodium 134 Potassium 4.6 Chloride 96 L Carbon Dioxide 26.1 Anion Gap 12 BUN 19 Creatinine 0.93 Estim Creat Clear Calc 136.23 Est GFR (MDRD) Non-Af 71 BUN/Creatinine Ratio 20.2 H Glucose 130 H Hemoglobin A1c 6.2 H Lactic Acid 2.4 H* Calcium 9.4 Total Bilirubin 0.52 AST 30 ALT 24 Alkaline Phosphatase 88 Troponin T High Sens 12 Troponin T Hi Sens 2 Hr 14 NT pro BNP II 284 Total Protein 7.3 Albumin 4.0 Globulin 3.3 Albumin/Globulin Ratio 1.2 Urine Color Straw Urine Clarity Clear Urine pH 7.0 Ur Specific [place] 1.010 Urine Protein Negative Urine Glucose (UA) Normal Urine Ketones Negative Urine Occult Blood 10 H Urine Nitrite Negative Urine Bilirubin Negative Urine Urobilinogen Normal Ur Leukocyte Esterase Negative Urine RBC 5-10 SEEN Urine WBC 0 SEEN Ur Squamous Epith Cells 5-10 SEEN Urine Bacteria 0 SEEN Urine Mucus 0 SEEN Radiography Diagnostic Testing: Clinical Impression(s) from Imaging Studies Chest X-Ray 06/10/25 23:59 IMPRESSION: As above. Reading Location: [place] [address] Discharge Plan Disposition Disposition: Acute Care Hospital [facility] Discharge Date/Time: 06/11/25 05:15 What to do if you have Problems For any increased pain, shortness of breath, bleeding, nausea or vomiting, chestpain, or any unexpected problems, contact your Primary Care Provider. Call [facility] ([phone]) or report to the closest Emergency Room. Call 911 if necessary. 06/11/25 07 <Electronically signed by Reji George DO> Cosigner Signature (if applicable): CC: VJ Maloney ~ Signed ADDENDUM by Dr. Reji George DO on 06/11/25 at 0738 30 minutes of critical care time utilized in managing the patient. This is due to high probability of and deterioration of the patient based on the patient's condition and excludes any separately billable procedures. 06/11/25 07<Electronically signed by Reji George DO> Cosigner Signature (if applicable): cc: VJ Maloney ~* Signed [facility] Work Phone: [phone] Discharge summary [facility] Medical Records Department [address] [place] [address] Emergency Department Summary 06/11/25 MR#: [id number] Acct: [id number] Name: JESUSITA ENGLAND Rep #:[id number] 1 : 1970 55 From: Reji elenaett DO PCP: VJ Maloney Status:ADM IN Location: [place] [address] HPI History of Present Illness Chief Complaint: Shortness of Breath Narrative Narrative: Chief complaint and HPI: Shortness of breath and bilateral lower extremity cellulitis. 55-year-old female with past medical history of morbid obesity, MIGUEL, IBS, depression presents for evaluation of bilateral lower extremity cellulitis and shortness of breath. Patient states for the past several days she has been having increased redness to her bilateral lower extremities. She states today she developed fever and exertional dyspnea. States she has a chronic cough. She denies any chest pain, abdominal pain, nausea, vomiting, dysuria. States she has baseline incontinence. Patient states she hasa past medical history of recurrent sepsis. Review of systems: See HPI Medications: As listed on the chart Allergies: As listed on the chart PFSH: Per chart Vital signs: As listed on the chart. Reviewed. Physical exam: Gen: A&O x3, dyspneic when speaking although patient did just ambulate Head: Normocephalic, atraumatic Eyes: No sclera icterus, conjunctiva clear, PERRL ENT: Moist mucous membranes Neck: Trachea midline, No JVD CV: RRR, no murmurs, no peripheral edema Resp: Lungs diminished and difficult to auscultate secondary to her body habitus, dyspneic when speaking, tachypneic GI: Abd soft, non-distended, non-tender, no r/r/g Musc: Moves all extremity, no deformity Skin: Warm, dry, cellulitis of bilateral lower extremities Neuro: Alert, oriented, grossly intact, sensation intact Psych: Cooperative, appropriate mood and affect [facility] Medical History Hyperglycemia Failure of outpatient treatment Ascending aorta dilatation Abnormal echocardiogram IBS (irritable bowel syndrome) Depression Heel spur Osteoarthritis (arthritis due to wear and tear of joints) Asthma GERD without esophagitis Insomnia Anxiety Home Medications ?Medication ?Instructions ?Recorded ?Last Taken ?Type acetaminophen 500 mg capsule 1,000 mg PO Q6H PRN Pain 07/11/21 05/04/24 History ferrous sulfate 325 mg (65 mg 325 mg PO DAILY@1200 iro n #30 tabs 08/01/21 06/09/25 Rx iron) tablet (FeroSul) venlafaxine 75 mg capsule,extended 225 mg (3 x 75 mg) PO DAILY 09/03/21 06/09/25 Rx release 24 hr (Effexor XR) depression #90 caps lisinopril 10 mg tablet 10 mg PO DAILY blood pressur e 07/24/23 06/09/25 History nystatin 100,000 unit/gram topical 1 applic topical BI D yeast 07/31/23 05/04/24 Rx powder ([facility]) infection 30 days #60 grams cholecalciferol (vitamin D3) 1 tab PO DAILY supplement 04/04/24 06/09/25 History valacyclovir 1 gram tablet 2,000 mg PO BID PRN cold so re 04/07/24 Unknown History L.acidophil,salivari-Bifido 1 cap PO BID 10 days #20 c aps 05/09/24 06/09/25 Rx bifidum-Strep thermoph 175 mg capsule [id number]-B12-vit C 1 tab PO DAILY 06/11/25 Unknown History albuterol sulfate 2.5 mg/3 mL 2.5 mg continuous nebuli zation Q4H 06/11/25 Unknown History (0.083 %) solution for nebulization PRN PRN dyspnea buspirone 5 mg tablet 5 mg PO BID mood 06/11/25 History calcium carbonate (Ally-Cornell 600 mg PO TID PRN dysp epsia 06/11/25 06/09/25 History Heartburn Chew) cholestyramine (with sugar) 4 gram 2 - 4 ea PO DAILY s upp 06/11/25 06/09/25 History oral powder multivitamin (Daily Multi-Vitamin 1 tab PO DAILY supp 06/11/25 06/09/25 History tablet) pantoprazole 20 mg tablet,delayed 20 mg PO DAILY stoma ch 06/11/25 06/09/25 History release Allergy/AdvReac Type Severity Reaction Status Date / Time adhesive tape AdvReac Unknown Other Verified 04/04/24 19:07 Family History Mother Alzheimer's dementia Surgical History H/O foot surgery History of hip surgery History of cholecystectomy Social History household members: spouse housing: house number of children: 1 current occupational status: employed 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 For lunch she [...] junk. EXAM Physical Exam Const Vital Signs: 06/10/25 23:46 06/11/25 00:12 06/11/25 00:45 Temperature 102.9 F H Temperature Source Axillary Pulse Rate 107 H 91 Respiratory Rate 25 H 20 H Respiratory Effort Labored Respiratory Pattern Normal Blood Pressure 178/62 H Blood Pressure Mean 100 Pulse Ox 94 Oxygen Delivery Method Room Air 06/11/25 00:46 06/11/25 00:51 06/11/25 01:00 Temperature 101.2 F H 101.2 F H Temperature Source Oral Oral Pulse Rate 91 100 98 Respiratory Rate 16 20 H Respiratory Effort Respiratory Pattern Blood Pressure 138/76 H 130/70 H Blood Pressure Mean 96 90 Pulse Ox 96 95 Oxygen Delivery Method Room Air 06/11/25 02:22 06/11/25 02:24 Temperature 100.8 F H Temperature Source Oral Pulse Rate 94 Respiratory Rate 22 H Respiratory Effort Respiratory Pattern Blood Pressure 109/60 109/60 Blood Pressure Mean 76 76 Pulse Ox 96 Oxygen Delivery Method Room Air MDM MDM MDM Narrative Medical decision making narrative: 55-year-old female with past medical history of morbid obesity, MIGUEL, IBS, depression presents for evaluation of bilateral lower extremity cellulitis and shortness of breath. Patient states she has a recurrent history of sepsis. On presentation, patient is short of breath, dyspneic when speaking, tachypneic however she did just ambulate out of the car. She is tachycardic and febrile with a temperature of 102.9. Patient has cellulitis to the bilateral lower extremities. Her lungs are difficult toauscultate secondary to her body habitus. Patient meets sepsis criteria based on vital signs. Will do fluids based on ideal body weight, 30 cc/kg bolus ordered for ideal body weight which places her at 2 L. Tylenol and DuoNeb. Sepsis workup ordered. Will give Zosynand vancomycin prophylactically asdifferential diagnosis includes but is not limited to bilateral lower extremity cellulitis, pneumonia, viral illness, UTI, bacteremia, electrolyte abnormality, pneumonia. CBC with leukocytosis of 13.1. No anemia. Coagulation panel unremarkable. CMP unremarkable. Lactic acid elevated 2.4. Patient receiving fluids. Troponin unremarkable x 2. BNP unremarkable. UA negative for UTI. Patient's sepsis is likely secondary to herbilateral lower extremity cellulitis. Patient will warrant admission. Spokewith the hospitalist who accepted. After patient was accepted, she became tachypneic and began hyper ventilating. DuoNeb was ordered. We did practice on her breathing techniques. We attempted ABG but this was unable to be obtained. VBG unremarkable. EKG: Interpreted by me/EM physician: EKG shows normal sinus rhythm without acute ischemic changes. Heartrate 84. Diagnostic: Interpreted by me/EM physician: Chest x-ray with cardiomegaly but without pneumonia, cardiomegaly, pneumothorax, large effusion. Radiology in agreement. Impression: 1. Sepsis secondary to bilateral lower extremity cellulitis 2. Lactic acidosis secondary to #1 3. Morbid obesity Lab Data Labs: Laboratory Results - last 24 hr 06/11/25 06/11/25 06/11/25 00:05 00:30 02:13 WBC 16.1 H RBC 4.60 Hgb 12.6 Hct 39.1 MCV 85.0 MCH 27.4 MCHC 32.2 RDW Std Deviation 45.9 H RDW Coeff of Rani 15.0 H Plt Count 163 MPV 9.5 Immature Gran % (Auto) 1.300 H Neut % (Auto) 90.9 H Lymph % (Auto) 2.0 L [place] % (Auto) 5.7 Eos % (Auto) 0.0 Baso % (Auto) 0.1 Absolute Neuts (auto) 14.6 H Absolute Lymphs (auto) 0.32 L Nucleated RBC % 0 PT 13.6 INR 1.0 APTT 29.1 Sodium 134 Potassium 4.6 Chloride 96 L Carbon Dioxide 26.1 Anion Gap 12 BUN 19 Creatinine 0.93 Estim Creat Clear Calc 136.23 Est GFR (MDRD) Non-Af 71 BUN/Creatinine Ratio 20.2 H Glucose 130 H Hemoglobin A1c 6.2 H Lactic Acid 2.4 H* Calcium 9.4 Total Bilirubin 0.52 AST 30 ALT 24 Alkaline Phosphatase 88 Troponin T High Sens 12 Troponin T Hi Sens 2 Hr 14 NT pro BNP II 284 Total Protein 7.3 Albumin 4.0 Globulin 3.3 Albumin/Globulin Ratio 1.2 Urine Color Straw Urine Clarity Clear Urine pH 7.0 Ur Specific [place] 1.010 Urine Protein Negative Urine Glucose (UA) Normal Urine Ketones Negative Urine Occult Blood 10 H Urine Nitrite Negative Urine Bilirubin Negative Urine Urobilinogen Normal Ur Leukocyte Esterase Negative Urine RBC 5-10 SEEN Urine WBC 0 SEEN Ur Squamous Epith Cells 5-10 SEEN Urine Bacteria 0 SEEN Urine Mucus 0 SEEN Radiography Diagnostic Testing: Clinical Impression(s) from Imaging Studies Chest X-Ray 06/10/25 23:59 IMPRESSION: As above. Reading Location: [id number] Discharge Plan Disposition Disposition: Acute Care Hospital [facility] Discharge Date/Time: 06/11/25 05:15 What to do if you have Problems For any increased pain, shortness of breath, bleeding, nausea or vomiting, chestpain, or any unexpected problems, contact your Primary Care Provider. Call [facility] ([phone]) or report tothe closest Emergency Room. Call 911 if necessary. 06/11/25 4010 Cosigner Signature (if applicable): CC: VJ Maloney ~ Signed ADDENDUM by Dr. Reji George DO on 06/11/25 at 0738 30 minutes of critical care time utilized in managing the patient. This is due to high probability of and deterioration of the patient based on the patient's condition and excludes any separately billable procedures. 06/11/25 0738 Cosigner Signature (if applicable): cc: VJ Maloney ~* Signed [facility]07-13-2025 History and physical note Author Mauri Sampson [facility] Note Date/Time June 11, 2025 3:34 am [facility] Medical Records Department [address] [place] [address] H&P Exam - Hospitalist 06/11/25 0249 MR#: [id number] Acct: [id number] Name: JESUSITA ENGLAND Rep #:[id number] 2 : 1970 55 From: Mauri kellogg DO PCP: VJ Maloney Status:REG ER Location: ED HPI - General General Date of Admission: 06/11/25 Date of Service: 06/11/25 Chief Complaint: Concern for recurrent lower extremity cellulitis HPI Narrative JESUSITA ENGLAND, is a 55 F who presented to [facility] ED on 06/11/2025 with concern for recurrent lower extremity cellulitis. Medical history is significant for super morbid obesity with BMI 91, chronic lower extremity lymphedema and recurrent bilateral lower extremity cellulitis. She was last hospitalized here in April 2024 for right leg cellulitis. CT scan then showed diffuse edema in the right posterior thigh. ID followed during the hospitalization. It appears she was treated with vancomycin and cefazolin for nonpurulent cellulitis while inpatient and then discharged home on a 10-day course of p.o. doxycycline and Keflex. Patient lives at home with her . States she has been doing fairly well recently. However, yesterday evening she began to have worsening lower extremity pain with redness and some associated shortness of breath. She notes that prior episodes have come on quickly like this, so she came in for further evaluation. On arrival to the ED she was hypertensive to the 170 systolic, sinus tachycardia to the 100s and febrile to 102.9 F. She was satting in the mid 90s on room air at rest. Labs notable for WBC count 16 with neutrophil predominance, lactate 2.4, creatinine 0.93 (baseline 0.7-0.8). Chest x-ray showed vascular indistinctness concerning for edema, was otherwise unremarkable. Patient was given doses of IV vancomycin andZosyn as well as Tylenol. Fluid was held due to concern for pulmonary edema on chest x-ray. Hospitalist was then contacted for admission. I saw the patient at bedside in the ED, sister was present. Notably patient's sister is Maggie who is a rehabilitation case coordinator here. Patient was laying back comfortably in bed, conversing normally, in no acute distress. She did report some right lower extremity tenderness to palpation in the medial thigh. She otherwise felt somewhat cold and was asking for blankets. She denied any abdominal pain or discomfort. No other acute concerns currently. Will be admitted for further management. [facility]LY [facility] Medical History Hyperglycemia Failure of outpatient treatment Ascending aorta dilatation Abnormal echocardiogram IBS (irritable bowel syndrome) Depression Heel spur Osteoarthritis (arthritis due to wear and tear of joints) Asthma GERD without esophagitis Insomnia Anxiety Home Medications ?Medication ?Instructions ?Recorded ?Last Taken ?Type acetaminophen 500 mg capsule 1,000 mg PO Q6H PRN Pain 07/11/21 05/04/24 History ferrous sulfate 325 mg (65 mg 325 mg PO DAILY@1200 iro n #30 tabs 08/01/21 05/04/24 Rx iron) tablet (FeroSul) venlafaxine 75 mg capsule,extended 225 mg (3 x 75 mg) PO DAILY 09/03/21 05/04/24 Rx release 24 hr (Effexor XR) depression #90 caps lisinopril 10 mg tablet 10 mg PO DAILY blood pressur e 07/24/23 05/04/24 History nystatin 100,000 unit/gram topical 1 applic topical BI D yeast 07/31/23 05/04/24 Rx powder (Nyamyc) infection 30 days #60 grams cholecalciferol (vitamin D3) 1 tab PO DAILY supplement 04/04/24 05/04/24 History valacyclovir 1 gram tablet 2,000 mg PO BID PRN cold so re 04/07/24 Unknown History L.acidophil,salivari-Bifido 1 cap PO BID 10 days #20 c aps 05/09/24 Unknown Rx bifidum-Strep thermoph 175 mg capsule [id number]-B12-vit C 1 tab PO DAILY 06/11/25 Unknown History albuterol sulfate 2.5 mg/3 mL 2.5 mg continuous nebuli zation Q4H 06/11/25 Unknown History (0.083 %) solution for nebulization PRN PRN dyspnea buspirone 5 mg tablet 5 mg PO BID 06/11/25 Unknown History calcium carbonate (Ally-Cornell 600 mg PO TID PRN dysp epsia 06/11/25 Unknown History Heartburn Chew) cholestyramine (with sugar) 4 gram 2 - 4 ea PO DAILY 0 06/11/25 Unknown History oral powder multivitamin (Daily Multi-Vitamin 1 tab PO DAILY 06/11 Unknown History tablet) pantoprazole 20 mg tablet,delayed 20 mg PO DAILY 06/11 Unknown History release Allergy/AdvReac Type Severity Reaction Status Date / Time adhesive tape AdvReac Unknown Other Verified 04/04/24 19:07 Family History Mother Alzheimer's dementia Surgical History H/O foot surgery History of hip surgery History of cholecystectomy Social History household members: spouse housing: house number of children: 1 current occupational status: employed 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 For lunch she [...] to eat junk. ROS Constitutional Constitutional: Reports fatigue; Denies chills, fever(s) or weakness Eyes Eyes: Denies change in vision Cardiovascular Cardiovascular: Denies chest pain Respiratory/Chest Respiratory/Chest: Reports shortness of breath at rest; Denies cough or wheezing Gastrointestinal Gastrointestinal: Denies abdominal pain Musculoskeletal Musculoskeletal: Reports other Details: Bilateral lower extremity pain with swelling ; Denies arthralgias or myalgias Vital Signs Vital Signs Vital Signs: 06/10/25 23:46 06/11/25 00:12 06/11/25 00:45 Temperature 102.9 F H Temperature Source Axillary Pulse Rate 107 H 91 Respiratory Rate 25 H 20 H Respiratory Effort Labored Respiratory Pattern Normal Blood Pressure 178/62 H Blood Pressure Mean 100 Pulse Ox 94 Oxygen Delivery Method Room Air 06/11/25 00:46 06/11/25 00:51 06/11/25 01:00 Temperature 101.2 F H 101.2 F H Temperature Source Oral Oral Pulse Rate 91 100 98 Respiratory Rate 16 20 H Respiratory Effort Respiratory Pattern Blood Pressure 138/76 H 130/70 H Blood Pressure Mean 96 90 Pulse Ox 96 95 Oxygen Delivery Method Room Air 06/11/25 02:22 06/11/25 02:24 Temperature 100.8 F H Temperature Source Oral Pulse Rate 94 Respiratory Rate 22 H Respiratory Effort Respiratory Pattern Blood Pressure 109/60 109/60 Blood Pressure Mean 76 76 Pulse Ox 96 Oxygen Delivery Method Room Air Weight Weight: 241.2 kg Body Mass Index (BMI) 91.2 Physical Exam Const alert, oriented x3 and no apparent distress Constitutional Narrative: Middle-aged female, super morbid obesity, mildly fatigued appearing but otherwise laying back comfortably in bed, conversing normally, in no acute distress. General Appearance: cooperative and comfortable HEENT normocephalic, head/scalp atraumatic, hearing grossly normal bilaterally and nasal mucous membranes and turbinates normal HEENT Narrative: Dry mucous membranes. Eyes PERRL, EOMs intact bilaterally and conjunctivae normal Neck full ROM Chest inspection of chest normal Resp Resp Narrative: Exam limited by body habitus. Diminished breath sounds bilaterally but no wheezing or crackles noted. Cardio no murmurs and peripheral pulses 2+ throughout Cardio Narrative: Tachycardic, regular rhythm. GI normal to inspection, nondistended, normoactive bowel sounds, soft to palpation,non-tender and non-distended Back/Spine normal ROM Extremity Extremity Narrative: Bilateral lower extremity lymphedema noted up to the thighs. Mild erythema noted especially in right leg in the medial thigh area with some tenderness to palpation. Psych mental status grossly normal Results Lab / Micro Data 06/11/25 00:05 06/11/25 00:05 Labs: Laboratory Results - last 24 hr 06/11/25 00:05: WBC 16.1 H, RBC 4.60, Hgb 12.6, Hct 39.1, MCV 85.0, MCH 27.4, MCHC 32.2, RDW Std Deviation 45.9 H, RDW Coeff of Rani 15.0 H, Plt Count 163, MPV9.5, Immature Gran % (Auto) 1.300 H, Neut % (Auto) 90.9 H, Lymph % (Auto) 2.0 L,[place] % (Auto) 5.7, Eos % (Auto) 0.0, Baso % (Auto) 0.1, Absolute Neuts (auto) 14.6 H, Absolute Lymphs (auto) 0.32 L, Nucleated RBC % 0, PT 13.6, INR 1.0, APTT29.1, Sodium 134, Potassium 4.6, Chloride 96 L, Carbon Dioxide 26.1, Anion Gap 12, BUN 19, Creatinine 0.93, Estim Creat Clear Calc 136.23, Est GFR (MDRD) Non-Af 71, BUN/Creatinine Ratio 20.2 H, Glucose 130 H, Lactic Acid 2.4 H*, Calcium 9.4, Total Bilirubin 0.52, AST 30, ALT 24, Alkaline Phosphatase 88, Troponin T High Sens 12, NT pro BNP II 284, Total Protein 7.3, Albumin 4.0, Globulin 3.3, Albumin/Globulin Ratio 1.2 06/11/25 00:30: Urine Color Straw, Urine Clarity Clear, Urine pH 7.0, Ur Specific [place] 1.010, Urine Protein Negative, Urine Glucose (UA) Normal, UrineKetones Negative, Urine Occult Blood 10 H, Urine Nitrite Negative, Urine Bilirubin Negative, Urine Urobilinogen Normal, Ur Leukocyte Esterase Negative, Urine RBC 5-10 SEEN, Urine WBC 0 SEEN, Ur Squamous Epith Cells 5-10 SEEN, Urine Bacteria 0 SEEN, Urine Mucus 0 SEEN 06/11/25 02:13: Troponin T Hi Sens 2 Hr 14 Micro: Microbiology 06/11/25 00:18 Mucosa - Nose SARS-CoV-2, Influenza & RSV (PCR) - Final Imaging Radiology Impression Chest X-Ray 06/10/25 23:59 IMPRESSION: As above. Reading Location: [id number] Assessment & Plan Assessment/Plan (1) Lower extremity cellulitis: PLAN: Plan Patient is a 55-year-old female who presented [facility] ED on 06/11/2025 with concern for recurrent lower extremity cellulitis. 1. Recurrent lower extremity cellulitis with chronic lower extremity lymphedema ? Admit under inpatient status to [facility]. Wound care consulted. PT/OT/case management consulted. Last hospitalization for similar presentation was in April2024. Met SIRS criteria on admit with leukocytosis, fevers, and tachycardia butotherwise did not meet sepsis criteria. Will treat with IV vancomycin and Zosynfor now. Notably ID followed during April hospitalization last year and it appears she was treated with vancomycin and cefazolin while inpatient and then discharged on doxycycline and Keflex. Can consider ID consult as needed. Had CT imaging done of right leg during hospitalization last year that showed diffuse soft tissue swelling but no need for surgical intervention. Will hold on any imaging for now. 2. Mild creatinine elevation with elevated lactic acid ? Creatinine 0.93 and lactic acid 2.4 on admit. Baseline creatinine is 0.7-0.8. Presume due to mild volume depletion in setting of cellulitis as above. ED physician held fluids due to concern for vascular congestion on chest x-ray. However patient is stable on room air at rest and appears dehydrated. Will give1 L of IV fluids over several hours. Follow-up a.m. BMP and monitor urine output. Further treatment as above. Chronic medical conditions: ? Class III obesity with MIGUEL and obesity hypoventilation syndrome: BMI 91 on admit. Complicates hospital course, care and prognosis. Weight loss recommended. ? Hypertension: Will hold home lisinopril for now, restart as needed. ? GERD: Continue PPI. ? Anxiety/depression: Continue home BuSpar and venlafaxine. ? Asthma: Stable on room air at rest, not in acute exacerbation. Continue home short acting dilators as needed. ? Mild iron deficiency anemia: Hemoglobin 12.6 on admit, stable at baseline. Continue home iron supplement. ? History of stage III decubitus ulcer DVT prophylaxis: Lovenox twice daily CODE STATUS: Full code, verified Expected disposition: TBD Total clinical time spent by myself addressing the patient's medical issues, reviewing all the data, and collaborating with patient's care team: 75 minutes. Charges/Coding Visit Charges Inpatient E&M: 31936 Init Hosp L3 06/11/25 0334 <Electronically signed by Mauri Sampson DO> Cosigner Signature (if applicable): CC: Dr. Mauri Sampson DO; VJ Maloney~ Signed [facility] Work Phone: 1(674) 867-354207-13-2025 Evaluation note* Diagnosis Onset Date Resolution Status Admit Date Lower extremity cellulitis acute June 11, 2025 2:49am [facility] Work Phone: [phone]) 827-769607-13-2025 Evaluation note* Diagnosis Onset Date Resolution Status Admit Date Anasarca acute June 11 2:49am Bacteremia acute June 11 2:49am Lower extremity cellulitis acute June 11, 2025 2:49am [facility] Work Phone: [phone]) 644-241707-13-2025 Evaluation note* Diagnosis Onset Date Resolution Status Admit Date Anasarca resolved June 11 2:49am Bacteremia resolved June 11 2:49am Lower extremity cellulitis resolved June 11, 2025 2:49am [facility] Work Phone: [phone] 338-382607-13-2025 History and physical note Author Mauri Sampson [facility] Note Date/Time June 11, 2025 3:34 am [facility] Medical Records Department [address] [place] [address] H&P Exam - Hospitalist 06/11/25 0249 MR#: [id number] Acct: [id number] Name: JESUSITA ENGLAND Rep #:[id number] 2 : 1970 55 From: Mauri kellogg DO PCP: VJ Maloney Status:REG ER Location: ED HPI - General General Date of Admission: 06/11/25 Date of Service: 06/11/25 Chief Complaint: Concern for recurrent lower extremity cellulitis HPI Narrative JESUSITA ENGLAND, is a 55 F who presented to [facility] ED on 06/11/2025 with concern for recurrent lower extremity cellulitis. Medical history is significant for super morbid obesity with BMI 91, chronic lower extremity lymphedema and recurrent bilateral lower extremity cellulitis. She was last hospitalized here in April 2024 for right leg cellulitis. CT scan then showed diffuse edema in the right posterior thigh. ID followed during the hospitalization. It appears she was treated with vancomycin and cefazolin for nonpurulent cellulitis while inpatient and then discharged home on a 10-day course of p.o. doxycycline and Keflex. Patient lives at home with her . States she has been doing fairly well recently. However, yesterday evening she began to have worsening lower extremity pain with redness and some associated shortness of breath. She notes that prior episodes have come on quickly like this, so she came in for further evaluation. On arrival to the ED she was hypertensive to the 170 systolic, sinus tachycardia to the 100s and febrile to 102.9 F. She was satting in the mid 90s on room air at rest. Labs notable for WBC count 16 with neutrophil predominance, lactate 2.4, creatinine 0.93 (baseline 0.7-0.8). Chest x-ray showed vascular indistinctness concerning for edema, was otherwise unremarkable. Patient was given doses of IV vancomycin andZosyn as well as Tylenol. Fluid was held due to concern for pulmonary edema on chest x-ray. Hospitalist was then contacted for admission. I saw the patient at bedside in the ED, sister was present. Notably patient's sister is Maggie who is a rehabilitation case coordinator here. Patient was laying back comfortably in bed, conversing normally, in no acute distress. She did report some right lower extremity tenderness to palpation in the medial thigh. She otherwise felt somewhat cold and was asking for blankets. She denied any abdominal pain or discomfort. No other acute concerns currently. Will be admitted for further management. [facility] Medical History Hyperglycemia Failure of outpatient treatment Ascending aorta dilatation Abnormal echocardiogram IBS (irritable bowel syndrome) Depression Heel spur Osteoarthritis (arthritis due to wear and tear of joints) Asthma GERD without esophagitis Insomnia Anxiety Home Medications ?Medication ?Instructions ?Recorded ?Last Taken ?Type acetaminophen 500 mg capsule 1,000 mg PO Q6H PRN Pain 07/11/21 05/04/24 History ferrous sulfate 325 mg (65 mg 325 mg PO DAILY@1200 iro n #30 tabs 08/01/21 05/04/24 Rx iron) tablet (FeroSul) venlafaxine 75 mg capsule,extended 225 mg (3 x 75 mg) PO DAILY 09/03/21 05/04/24 Rx release 24 hr (Effexor XR) depression #90 caps lisinopril 10 mg tablet 10 mg PO DAILY blood pressur e 07/24/23 05/04/24 History nystatin 100,000 unit/gram topical 1 applic topical BI D yeast 07/31/23 05/04/24 Rx powder (Nyamyc) infection 30 days #60 grams cholecalciferol (vitamin D3) 1 tab PO DAILY supplement 04/04/24 05/04/24 History valacyclovir 1 gram tablet 2,000 mg PO BID PRN cold so re 04/07/24 Unknown History L.acidophil,salivari-Bifido 1 cap PO BID 10 days #20 c aps 05/09/24 Unknown Rx bifidum-Strep thermoph 175 mg capsule [id number]-[id number]-U2-P8-B7-B12-vit C 1 tab PO DAILY 06/11/25 Unknown History albuterol sulfate 2.5 mg/3 mL 2.5 mg continuous nebuli zation Q4H 06/11/25 Unknown History (0.083 %) solution for nebulization PRN PRN dyspnea buspirone 5 mg tablet 5 mg PO BID 06/11/25 Unknown History calcium carbonate (Ally-Cornell 600 mg PO TID PRN dysp epsia 06/11/25 Unknown History Heartburn Chew) cholestyramine (with sugar) 4 gram 2 - 4 ea PO DAILY 0 06/11/25 Unknown History oral powder multivitamin (Daily Multi-Vitamin 1 tab PO DAILY 06/11 Unknown History tablet) pantoprazole 20 mg tablet,delayed 20 mg PO DAILY 06/11 Unknown History release Allergy/AdvReac Type Severity Reaction Status Date / Time adhesive tape AdvReac Unknown Other Verified 04/04/24 19:07 Family History Mother Alzheimer's dementia Surgical History H/O foot surgery History of hip surgery History of cholecystectomy Social History household members: spouse housing: house number of children: 1 current occupational status: employed 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 For lunch she [...] to eat junk. ROS Constitutional Constitutional: Reports fatigue; Denies chills, fever(s) or weakness Eyes Eyes: Denies change in vision Cardiovascular Cardiovascular: Denies chest pain Respiratory/Chest Respiratory/Chest: Reports shortness of breath at rest; Denies cough or wheezing Gastrointestinal Gastrointestinal: Denies abdominal pain Musculoskeletal Musculoskeletal: Reports other Details: Bilateral lower extremity pain with swelling ; Denies arthralgias or myalgias Vital Signs Vital Signs Vital Signs: 06/10/25 23:46 06/11/25 00:12 06/11/25 00:45 Temperature 102.9 F H Temperature Source Axillary Pulse Rate 107 H 91 Respiratory Rate 25 H 20 H Respiratory Effort Labored Respiratory Pattern Normal Blood Pressure 178/62 H Blood Pressure Mean 100 Pulse Ox 94 Oxygen Delivery Method Room Air 06/11/25 00:46 06/11/25 00:51 06/11/25 01:00 Temperature 101.2 F H 101.2 F H Temperature Source Oral Oral Pulse Rate 91 100 98 Respiratory Rate 16 20 H Respiratory Effort Respiratory Pattern Blood Pressure 138/76 H 130/70 H Blood Pressure Mean 96 90 Pulse Ox 96 95 Oxygen Delivery Method Room Air 06/11/25 02:22 06/11/25 02:24 Temperature 100.8 F H Temperature Source Oral Pulse Rate 94 Respiratory Rate 22 H Respiratory Effort Respiratory Pattern Blood Pressure 109/60 109/60 Blood Pressure Mean 76 76 Pulse Ox 96 Oxygen Delivery Method Room Air Weight Weight: 241.2 kg Body Mass Index (BMI) 91.2 Physical Exam Const alert, oriented x3 and no apparent distress Constitutional Narrative: Middle-aged female, super morbid obesity, mildly fatigued appearing but otherwise laying back comfortably in bed, conversing normally, in no acute distress. General Appearance: cooperative and comfortable HEENT normocephalic, head/scalp atraumatic, hearing grossly normal bilaterally and nasal mucous membranes and turbinates normal HEENT Narrative: Dry mucous membranes. Eyes PERRL, EOMs intact bilaterally and conjunctivae normal Neck full ROM Chest inspection of chest normal Resp Resp Narrative: Exam limited by body habitus. Diminished breath sounds bilaterally but no wheezing or crackles noted. Cardio no murmurs and peripheral pulses 2+ throughout Cardio Narrative: Tachycardic, regular rhythm. GI normal to inspection, nondistended, normoactive bowel sounds, soft to palpation,non-tender and non-distended Back/Spine normal ROM Extremity Extremity Narrative: Bilateral lower extremity lymphedema noted up to the thighs. Mild erythema noted especially in right leg in the medial thigh area with some tenderness to palpation. Psych mental status grossly normal Results Lab / Micro Data 06/11/25 00:05 06/11/25 00:05 Labs: Laboratory Results - last 24 hr 06/11/25 00:05: WBC 16.1 H, RBC 4.60, Hgb 12.6, Hct 39.1, MCV 85.0, MCH 27.4, MCHC 32.2, RDW Std Deviation 45.9 H, RDW Coeff of Rani 15.0 H, Plt Count 163, MPV9.5, Immature Gran % (Auto) 1.300 H, Neut % (Auto) 90.9 H, Lymph % (Auto) 2.0 L,[place] % (Auto) 5.7, Eos % (Auto) 0.0, Baso % (Auto) 0.1, Absolute Neuts (auto) 14.6 H, Absolute Lymphs (auto) 0.32 L, Nucleated RBC % 0, PT 13.6, INR 1.0, APTT29.1, Sodium 134, Potassium 4.6, Chloride 96 L, Carbon Dioxide 26.1, Anion Gap 12, BUN 19, Creatinine 0.93, Estim Creat Clear Calc 136.23, Est GFR (MDRD) Non-Af 71, BUN/Creatinine Ratio 20.2 H, Glucose 130 H, Lactic Acid 2.4 H*, Calcium 9.4, Total Bilirubin 0.52, AST 30, ALT 24, Alkaline Phosphatase 88, Troponin T High Sens 12, NT pro BNP II 284, Total Protein 7.3, Albumin 4.0, Globulin 3.3, Albumin/Globulin Ratio 1.2 06/11/25 00:30: Urine Color Straw, Urine Clarity Clear, Urine pH 7.0, Ur Specific [place] 1.010, Urine Protein Negative, Urine Glucose (UA) Normal, UrineKetones Negative, Urine Occult Blood 10 H, Urine Nitrite Negative, Urine Bilirubin Negative, Urine Urobilinogen Normal, Ur Leukocyte Esterase Negative, Urine RBC 5-10 SEEN, Urine WBC 0 SEEN, Ur Squamous Epith Cells 5-10 SEEN, Urine Bacteria 0 SEEN, Urine Mucus 0 SEEN 06/11/25 02:13: Troponin T Hi Sens 2 Hr 14 Micro: Microbiology 06/11/25 00:18 Mucosa - Nose SARS-CoV-2, Influenza & RSV (PCR) - Final Imaging Radiology Impression Chest X-Ray 06/10/25 23:59 IMPRESSION: As above. Reading Location: [id number] Assessment & Plan Assessment/Plan (1) Lower extremity cellulitis: PLAN: Plan Patient is a 55-year-old female who presented [facility] ED on 06/11/2025 with concern for recurrent lower extremity cellulitis. 1. Recurrent lower extremity cellulitis with chronic lower extremity lymphedema ? Admit under inpatient status to [facility]. Wound care consulted. PT/OT/case management consulted. Last hospitalization for similar presentation was in April2024. Met SIRS criteria on admit with leukocytosis, fevers, and tachycardia butotherwise did not meet sepsis criteria. Will treat with IV vancomycin and Zosynfor now. Notably ID followed during April hospitalization last year and it appears she was treated with vancomycin and cefazolin while inpatient and then discharged on doxycycline and Keflex. Can consider ID consult as needed. Had CT imaging done of right leg during hospitalization last year that showed diffuse soft tissue swelling but no need for surgical intervention. Will hold on any imaging for now. 2. Mild creatinine elevation with elevated lactic acid ? Creatinine 0.93 and lactic acid 2.4 on admit. Baseline creatinine is 0.7-0.8. Presume due to mild volume depletion in setting of cellulitis as above. ED physician held fluids due to concern for vascular congestion on chest x-ray. However patient is stable on room air at rest and appears dehydrated. Will give1 L of IV fluids over several hours. Follow-up a.m. BMP and monitor urine output. Further treatment as above. Chronic medical conditions: ? Class III obesity with MIGUEL and obesity hypoventilation syndrome: BMI 91 on admit. Complicates hospital course, care and prognosis. Weight loss recommended. ? Hypertension: Will hold home lisinopril for now, restart as needed. ? GERD: Continue PPI. ? Anxiety/depression: Continue home BuSpar and venlafaxine. ? Asthma: Stable on room air at rest, not in acute exacerbation. Continue home short acting dilators as needed. ? Mild iron deficiency anemia: Hemoglobin 12.6 on admit, stable at baseline. Continue home iron supplement. ? History of stage III decubitus ulcer DVT prophylaxis: Lovenox twice daily CODE STATUS: Full code, verified Expected disposition: TBD Total clinical time spent by myself addressing the patient's medical issues, reviewing all the data, and collaborating with patient's care team: 75 minutes. Charges/Coding Visit Charges Inpatient E&M: 14893 Init Hosp L3 06/11/25 0339 <Electronically signed by Mauri Sapmson DO> Cosigner Signature (if applicable): CC: Dr. Mauri Sampson DO; VJ Maloney~ Signed [facility] Work Phone: 1(595) 728-374107-13-2025 History and physical note [facility] Medical Records Department [address] [place], [place] [address] [address] H&P Exam - Hospitalist 07/13/25 0249 MR#: [id number] Acct: [id number] Name: JESUSITA ENGLAND Rep #:[id number] 2 : 1970 55 From: Mauri kellogg DO PCP: VJ Maloney Status:REG ER Location: ED HPI - General General Date of Admission: 06/11/25 Date of Service: 06/11/25 Chief Complaint: Concern for recurrent lower extremity cellulitis HPI Narrative JESUSITA ENGLAND, is a 55 F who presented to [facility] ED on 06/11/2025 with concern forrecurrent lower extremity cellulitis. Medical history is significant for super morbid obesity with BMI 91, chronic lower extremity lymphedema and recurrent bilateral lower extremity cellulitis. She was last hospitalized here in April 2024 for right leg cellulitis. CT scan then showed diffuse edema in the right posterior thigh. ID followed during the hospitalization. It appears she was treated withvancomycin and cefazolin for nonpurulent cellulitis while inpatient and then discharged home on a 10-day course of p.o. doxycycline and Keflex. Patient lives at home with her . States she has been doing fairly well recently. However, yesterday evening she began to have worsening lower extremity pain with redness and some associated shortness of breath. She notes that prior episodes have come on quickly like this, so she came in for further evaluation. On arrival to the ED she was hypertensive to the 170 systolic, sinus tachycardia to the 100s and febrile to 102.9 F. She was satting in the mid 90s on room air at rest. Labs notable for WBC count 16 with neutrophil predominance, lactate2.4, creatinine 0.93 (baseline 0.7-0.8). Chest x-ray showed vascular indistinctness concerning for edema, was otherwise unremarkable. Patient was given doses of IV vancomycin andZosyn as well as Tylenol. Fluid was held due to concern for pulmonary edema on chest x- ray. Hospitalist was then contacted for admission. I saw the patient at bedside in the ED, sister was present. Notably patient's sister is Maggie who is a rehabilitation case coordinator here. Patient was laying back comfortably in bed, conversing norm ally, in no acute distress. She did report some right lower extremity tenderness to palpation in the medial thigh. She otherwise felt somewhat cold and was asking for blankets. She denied any abdominal pain or discomfort. No other acute concerns currently. Will be admitted for further management. [facility] Medical History Hyperglycemia Failure of outpatient treatment Ascending aorta dilatation Abnormal echocardiogram IBS (irritable bowel syndrome) Depression Heel spur Osteoarthritis (arthritis due to wear and tear of joints) Asthma GERD without esophagitis Insomnia Anxiety Home Medications ?Medication ?Instructions ?Recorded ?Last Taken ?Type acetaminophen 500 mg capsule 1,000 mg PO Q6H PRN Pain 07/11/21 05/04/24 History ferrous sulfate 325 mg (65 mg 325 mg PO DAILY@1200 iro n #30 tabs 08/01/21 05/04/24 Rx iron) tablet (FeroSul) venlafaxine 75 mg capsule,extended 225 mg (3 x 75 mg) PO DAILY 09/03/21 05/04/24 Rx release 24 hr (Effexor XR) depression #90 caps lisinopril 10 mg tablet 10 mg PO DAILY blood pressur e 07/24/23 05/04/24 History nystatin 100,000 unit/gram topical 1 applic topical BI D yeast 07/31/23 05/04/24 Rx powder ([facility]) infection 30 days #60 grams cholecalciferol (vitamin D3) 1 tab PO DAILY supplement 04/04/24 05/04/24 History valacyclovir 1 gram tablet 2,000 mg PO BID PRN cold so re 04/07/24 Unknown History L.acidophil,salivari-Bifido 1 cap PO BID 10 days #20 c aps 05/09/24 Unknown Rx bifidum-Strep thermoph 175 mg capsule XN-V6-Z3-B1-W3-U7-B7-B12-vit C 1 tab PO DAILY 06/11/25 Unknown History albuterol sulfate 2.5 mg/3 mL 2.5 mg continuous nebuli zation Q4H 06/11/25 Unknown History (0.083 %) solution for nebulization PRN PRN dyspnea buspirone 5 mg tablet 5 mg PO BID 06/11/25 Unknown History calcium carbonate (Ally-Cornell 600 mg PO TID PRN dysp epsia 06/11/25 Unknown History Heartburn Chew) cholestyramine (with sugar) 4 gram 2 - 4 ea PO DAILY 0 06/11/25 Unknown History oral powder multivitamin (Daily Multi-Vitamin 1 tab PO DAILY 06/11 Unknown History tablet) pantoprazole 20 mg tablet,delayed 20 mg PO DAILY 06/11 Unknown History release Allergy/AdvReac Type Severity Reaction Status Date / Time adhesive tape AdvReac Unknown Other Verified 04/04/24 19:07 Family History Mother Alzheimer's dementia Surgical History H/O foot surgery History of hip surgery History of cholecystectomy Social History household members: spouse housing: house number of children: 1 current occupational status: employed 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 For lunch she [...] to eat junk. ROS Constitutional Constitutional: Reports fatigue; Denies chills, fever(s) or weakness Eyes Eyes: Denies change in vision Cardiovascular Cardiovascular: Denies chest pain Respiratory/Chest Respiratory/Chest: Reports shortness of breath at rest; Denies cough or wheezing Gastrointestinal Gastrointestinal: Denies abdominal pain Musculoskeletal Musculoskeletal: Reports other Details: Bilateral lower extremity pain with swelling ; Denies arthralgias or myalgias Vital Signs Vital Signs Vital Signs: 06/10/25 23:46 06/11/25 00:12 06/11/25 00:45 Temperature 102.9 F H Temperature Source Axillary Pulse Rate 107 H 91 Respiratory Rate 25 H 20 H Respiratory Effort Labored Respiratory Pattern Normal Blood Pressure 178/62 H Blood Pressure Mean 100 Pulse Ox 94 Oxygen Delivery Method Room Air 06/11/25 00:46 06/11/25 00:51 06/11/25 01:00 Temperature 101.2 F H 101.2 F H Temperature Source Oral Oral Pulse Rate 91 100 98 Respiratory Rate 16 20 H Respiratory Effort Respiratory Pattern Blood Pressure 138/76 H 130/70 H Blood Pressure Mean 96 90 Pulse Ox 96 95 Oxygen Delivery Method Room Air 06/11/25 02:22 06/11/25 02:24 Temperature 100.8 F H Temperature Source Oral Pulse Rate 94 Respiratory Rate 22 H Respiratory Effort Respiratory Pattern Blood Pressure 109/60 109/60 Blood Pressure Mean 76 76 Pulse Ox 96 Oxygen Delivery Method Room Air Weight Weight: 241.2 kg Body Mass Index (BMI) 91.2 Physical Exam Const alert, oriented x3 and no apparent distress Constitutional Narrative: Middle-aged female, super morbid obesity, mildly fatigued appearing but otherwise laying back comfortably in bed, conversing normally, in no acute distress. General Appearance: cooperative and comfortable HEENT normocephalic, head/scalp atraumatic, hearing grossly normal bilaterally and nasal mucous membranesand turbinates normal HEENT Narrative: Dry mucous membranes. Eyes PERRL, EOMs intact bilaterally and conjunctivae normal Neck full ROM Chest inspection of chest normal Resp Resp Narrative: Exam limited by body habitus. Diminished breath sounds bilaterally but no wheezing or crackles noted. Cardio no murmurs and peripheral pulses 2+ throughout Cardio Narrative: Tachycardic, regular rhythm. GI normal to inspection, nondistended, normoactive bowel sounds, soft to palpation,non-tender and non-distended Back/Spine normal ROM Extremity Extremity Narrative: Bilateral lower extremity lymphedema noted up to the thighs. Mild erythema noted especially in right leg in the medial thigh area with some tenderness to palpation. Psych mental status grossly normal Results Lab / Micro Data 06/11/25 00:05 06/11/25 00:05 Labs: Laboratory Results - last 24 hr 06/11/25 00:05: WBC 16.1 H, RBC 4.60, Hgb 12.6, Hct 39.1, MCV 85.0, MCH 27.4, MCHC 32.2, RDW Std Deviation 45.9 H, RDW Coeff of Rani 15.0 H, Plt Count 163, MPV9.5, Immature Gran % (Auto) 1.300 H, Neut% (Auto) 90.9 H, Lymph % (Auto) 2.0 L,Humboldt % (Auto) 5.7, Eos % (Auto) 0.0, Baso % (Auto) 0.1, Absolute Neuts (auto) 14.6 H, Absolute Lymphs (auto) 0.32 L, Nucleated RBC % 0, PT 13.6, INR 1.0, APTT29.1, Sodium 134, Potassium 4.6, Chloride 96 L, Carbon Dioxide 26.1, Anion Gap 12, BUN 19, Creatinine 0.93, Estim Creat Clear Calc 136.23, Est GFR (MDRD) Non-Af 71, BUN/Creatinine Ratio 20.2 H, Glucose 130 H, Lactic Acid 2.4 H*, Calcium 9.4, Total Bilirubin 0.52, AST 30, ALT 24, Alkaline Phosphatase 88, Troponin T High Sens 12, NT pro BNP II 284, Total Protein 7.3, Albumin 4.0, Globulin 3.3, Albumin/Globulin Ratio 1.2 06/11/25 00:30: Urine Color Straw, Urine Clarity Clear, Urine pH 7.0, Ur Specific [place] 1.010, Urine Protein Negative, Urine Glucose (UA) Normal, UrineKetones Negative, Urine Occult Blood 10 H, Urine Nitrite Negative, Urine Bilirubin Negative, Urine Urobilinogen Normal, Ur Leukocyte Esterase Negative, Urine RBC 5-10 SEEN, Urine WBC 0 SEEN, Ur Squamous Epith Cells 5-10 SEEN, Urine Bacteria 0 SEEN, Urine Mucus 0 SEEN 06/11/25 02:13: Troponin T Hi Sens 2 Hr 14 Micro: Microbiology 06/11/25 00:18 Mucosa - Nose SARS-CoV-2, Influenza & RSV (PCR) - Final Imaging Radiology Impression Chest X-Ray 06/10/25 23:59 IMPRESSION: As above. Reading Location: [place] [address] Assessment & Plan Assessment/Plan (1) Lower extremity cellulitis: PLAN: Plan Patient is a 55-year-old female who presented [facility] ED on 06/11/2025 with concern for recurrent lower extremity cellulitis. 1. Recurrent lower extremity cellulitis with chronic lower extremity lymphedema ? Admit under inpatient status to [facility]. Wound care consulted. PT/OT/case management consulted. Last hospitalization for similar presentation was in April2024. Met SIRS criteria on admit with leukocytosis, fevers, and tachycardia butotherwise did not meet sepsis criteria. Will treat with IV vancomycin and Zosynfor now. Notably ID followed during April hospitalization last year and it appears she was treated with vancomycin and cefazolin while inpatient and then discharged on doxycycline and Keflex. Can consider ID consult as needed. Had CT imaging done of right leg during hospitalization lastyear that showed diffuse soft tissue swelling but no need for surgical intervention. Will hold on any imaging for now. 2. Mild creatinine elevation with elevated lactic acid ? Creatinine 0.93 and lactic acid 2.4 on admit. Baseline creatinine is 0.7-0.8. Presume due to mildvolume depletion in setting of cellulitis as above. ED physician held fluids due to concern for vascular congestion on chest x-ray. However patient is stable on room air at rest and appears dehydrated. Will give1 L of IV fluids over several hours. Follow-up a.m. BMP and monitor urine output. Further treatment as above. Chronic medical conditions: ? Class III obesity with MIGUEL and obesity hypoventilation syndrome: BMI 91 on admit. Complicates hospital course, care and prognosis. Weight loss recommended. ? Hypertension: Will hold home lisinopril for now, restart as needed. ? GERD: Continue PPI. ? Anxiety/depression: Continue home BuSpar and venlafaxine. ? Asthma: Stable on room air at rest, not in acute exacerbation. Continue home short acting dilators as needed. ? Mild iron deficiency anemia: Hemoglobin 12.6 on admit, stable at baseline. Continue home iron supplement. ? History of stage III decubitus ulcer DVT prophylaxis: Lovenox twice daily CODE STATUS: Full code, verified Expected disposition: TBD Total clinical time spent by myself addressing the patient's medical issues, reviewing all the data, and collaborating with patient's care team: 75 minutes. Charges/Coding Visit Charges Inpatient E&M: 54193 Init Hosp L3 06/11/25 0332 Cosigner Signature (if applicable): CC: Dr. Mauri Sampson DO; VJ Maloney~ Signed [facility]07-13-2025 Radiology Diagnostic study note [facility] Imaging Services [address] [place], [place] [id number] Chest PA and Lateral MR#: [id number] Acct: [id number] Name: JESUSITA ENGLAND Rep #: [id number] : 1970 F 55 From: Jesse Stephens MD PCP: VJ Maloney Status: REG ER Study:Chest PA and Lateral Date of Exam: 06/10/25 Exam# [id number] Ordering Dr: Reji Thompson DO PROCEDURE: CHEST PA AND LATERAL 06/10/2025 REASON FOR EXAM: SHORTNESS OF BREATH TECHNIQUE: CHEST PA AND LATERAL COMPARISON: 08/17/2023. FINDINGS: The heart is enlarged. Vascular indistinctness suggestive of edema. No acute osseous abnormalities. RAD/Chest PA and Lateral IMPRESSION: As above. Reading Location: [id number] CC: Dr. Reji George DO; VJ Maloney ~ Metabolic Specialist: Signed [facility]12-13-2024 NoteRHEUMATOLOGY NEW PATIENT VISIT Patient Name: Jesusita England : 1970 Medical Record: [id number] PCP: Alondra Rosenberg PA-C Referring provider: Provider, Generic Ems REASON [...] me with any questions or concerns. Yamile Jo, [facility] Rheumatology [address] [place] [address] O: [phone] F: [phone] The above recommendations were discussed with the patient who understands and agrees with the plan. Portions of this note were created with [employer]. Every effort was made to proofread, but sound-alike errors may occasionally occur. Please contact me for any clarification of note contents. I spent 60 minutes on this patient encounter on the date of visit which included record review, fgjn-rg-[id number] time with patient, placing orders, documentation in the electronic medical record. HPI/GLADYS Jesusita England is a 54 y.o. female with who was referred by Provider, [facility] for evaluation of positive LIZ, recurrent [...] Not?ill-appearing. HENT: Head normocephali (more content not included)...[facility] 11-11-2024 History of Present illness Narrative* Yamile Jo, - 11/11/2024 8:27 AM EST Images from the original note were not included. RHEUMATOLOGY NEW PATIENT VISIT Patient Name: Jesusita England : 1970 Medical Record: [id number] PCP: Alondra Rosenberg PA-C Referring provider: Provider, Generic Ems REASON [...] possible. It would be beneficial for her tohave dermatology evaluation during 1 of these episodes as well as possible skin biopsy to evaluate histopathology. Return to clinic in 2 to 3 months. Please do not hesitate to contact me with any questions or concerns. Yamile Jo DO [facility] Rheumatology [address] [place] [address] O: [phone] F: [phone] The above recommendations were discussed with the patient who understands and agrees with the plan. Portions of this note were created with [employer]. Every effort was made to proofread, but sound-alike errors may occasionally occur. Please contact me for any clarification of note contents. I spent 60 minutes on this patient encounter on the date of visit which included record review, iegd-hb-fbvb time with patient, placing orders, documentation in the electronic medical record. HPI/GLADYS Jesusita England is a 54 y.o. female with who was referred by Provider, [facility] for evaluation of positive LIZ, recurrent cellulitis. I reviewed the nursing intake form. Any corrections needed have been updated in the HPI. Initial visit: Prior records reviewed. Issues with cellulitis in the legs for the last 2-3 years, ocassionally. Source has not clearly been identified in the past. When she has these episodes, it hits her fast. Has had episodes that startwith small area, but quickly involves whole leg [...] due to needing to use a walker. Handare stiff in the morning. No rashes anywhere [...] the right thigh with overlying skin thickening whichis suggestive of cellulitis. Echo from June 2023 [...] normal. Musculoskeletal: No synovitis detected in hands. * Marry AlexanderBECCA - 11/11/2024 8:26 AM EST RHEUMATOLOGY NEW PATIENT INTAKE: Have you ever [...] patient [x]Yes []Patient declined documented in this [id number] Discharge summary Author Rubin Hadley [facility] April 08, 2024 11:25am Note Date/Time April 08, 2024 11:21 am [facility] Medical Records Department [address] [place] [address] Instructions for Home/Discharge Instructions 04/08/24 1119 MR#: [id number] Acct: [id number] Name: JESUSITA ENGLAND Rep #:[id number] : 1970 54 From: Rubin frost MD PCP: VJ Maloney Status:ADM IN Discharge [...] Provider: Rubin Hadley Primary Care Provider: Alondra Rosenberg Consulting Providers: Calderon Ojeda; Wander Garcia Discharge [...] x1 day Referrals / Follow Up: Alondra Rosenberg PA [Primary Care Provider] - Within 1 Week Disposition Disposition (needs filled in before D/C Order can be placed): Home, Self Care 04/08/24 1125<Electronically signed by Rubin Hadley MD>Rubin Hadley MD CC: Dr. Calderon Ojeda DO; Dr. Wander Garcia MD; VJ Maloney ~ Signed [facility] Work Phone: 1(197) 134-839505-09-2024 Progress note Author Rubin Hadley [facility] April 07, 2024 10:15am Note Date/Time April 07, 2024 10:09a m [facility] Medical Records Department [address] [place] [address] Progress Note - Hospitalist 04/07/24 1006 MR#: [id number] Acct: [id number] Name: JESUSITA ENGLAND Rep #:[id number] : 1970 54 From: Rubin frost MD PCP: VJ Maloney Status:ADM IN Location: MS3 [id number] Subjective Subjective White count has completely resolved [...] 04/07/24 04/08/24 03:59 03:59 03:59 Intake Total 2239. / 1914. Balance 2239. / Lab / Micro Data 04/07/24 06:39 04/07/24 [...] 75.6 H, Lymph % (Auto) 12.2 L, [place] % (Auto) 10.8 H, Eos % (Auto) [...] 71.7 H, Lymph % (Auto) 15.1 L, [place] % (Auto) 11.4 H, Eos % (Auto) [...] DVT: Lovenox Charges/Coding Visit Charges Inpatient E&M: 77485 Subs Hosp L2 04/07/24 1015 <Electronically signed by Rubin Hadley MD> Cosigner Signature (if applicable): CC: ~ Signed [facility] Work Phone: 1(255) 691-369405-08-2024 Consult note Author Wander Garcia [facility] April 06, 2024 3:33pm Note Date/Time April 06, 2024 3:33pm [facility] Medical Records Department [address] [place] [address] Consultation - Infectious Dx 04/06/24 1530 MR#: [id number] Acct: [id number] Name: JESUSITA ENGLAND Rep #:[id number] : 1970 54 From: Wander marshall MD PCP: VJ Maloney Status:ADM IN Location: [place] [address] Assessment & Plan Assessment/Plan (1) Cellulitis: QUALIFIERS: [...] performed and neg except as noted above. 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 For lunch she [...] % (Auto) Cancelled, Lymph % (Auto) Cancelled, [place] % (Auto) Cancelled, Eos % (Auto) Cancelled, [...] Drop Cells Cancelled, Ovalocytes Cancelled, Stomatocytes Cancelled, [place] Bodies Cancelled, Ridgeway Cells Cancelled, Bite Cells Cancelled, Crenated Cell [...] 75.6 H, Lymph % (Auto) 12.2 L, [place] % (Auto) 10.8 H, Eos % (Auto) [...] Ordering Physician: Rubin Hadley Referring Physician: Alondra Rosenberg Performed By: Minor Antonio RVT 04/06/24 1533 <Electronically signed by Wander Garcia MD> Cosigner Signature (if applicable): CC: VJ Maloney~ Signed [facility] Work Phone: 1(870) 410-632405-08-2024 Progress note Author Rubin Hadley [facility] April 06, 2024 2:46pm Note Date/Time April 06, 2024 2:46pm [facility] Medical Records Department [address] [place] [address] Progress Note - Hospitalist 04/06/24 1444 MR#: [id number] Acct: [id number] Name: JESUSITA ENGLAND Rep #:[id number] : 1970 54 From: Rubin frost MD PCP: VJ Maloney Status:ADM IN Location: [place] [address] Subjective Subjective doing well, no issues overnight. [...] % (Auto) Cancelled, Lymph % (Auto) Cancelled, [place] % (Auto) Cancelled, Eos % (Auto) Cancelled, [...] Drop Cells Cancelled, Ovalocytes Cancelled, Stomatocytes Cancelled, [place] Bodies Cancelled, Ridgeway Cells Cancelled, Bite Cells Cancelled, Crenated Cell [...] 75.6 H, Lymph % (Auto) 12.2 L, [place] % (Auto) 10.8 H, Eos % (Auto) [...] Ordering Physician: Rubin Hadley Referring Physician: Alondra Rosenberg Performed By: Minor Antonio RVT Physical Exam Narrative General: Alert, Oriented [...] DVT: Lovenox Charges/Coding Visit Charges Inpatient E&M: 51022 Subs Hosp L2 04/06/24 1314 <Electronically signed by Rubin Hadley MD> Cosigner Signature (if applicable): CC: ~ Signed [facility] Work Phone: 1(201) 345-237405-07-2024 Consult note Author Cole Kelly [facility] April 05, 2024 9:48pm Note Date/Time April 05, 2024 9:48pm [facility] Medical Records Department [address] [place] [address] Pharmacokinetic/Renal -Consult 04/05/242146 MR#: [id number] Acct: [id number] Name: JESUSITA ENGLAND Rep #:[id number] : 1970 54 From: Cole Melton od PCP: VJ Maloney Status:ADM IN Y Location: [place] [address]-1 Consult Antibiotic Management Pharmacy has been consulted [...] [date and time ordered]: 04/07 @ 2100 04/05/242147 <Electronically signed by Cole seth> Date _ Cole Kelly Cosigner Signature (if applicable): Date CC: ~ Signed [facility] Work Phone: 1(382) 359-783205-07-2024 Progress note Author Rubin Hadley [facility] April 05, 2024 10:53am Note Date/Time April 05, 2024 10:53a m [facility] Medical Records Department [address] [place] [address] Progress Note - Hospitalist 04/05/24 1048 MR#: [id number] Acct: [id number] Name: JESUSITA ENGLAND Rep #:[id number] : 1970 54 From: Rubin frost MD PCP: VJ Maloney Status:ADM IN Location: [place] [address] Subjective Subjective Doing well, no issues overnight. [...] (Auto) 91.5 H, Lymph % (Auto) 2.6L, [place] % (Auto) 5.0, Eos % (Auto) 0.0, [...] DVT: Lovenox Charges/Coding Visit Charges Inpatient E&M: 66017 Subs Hosp L2 04/05/24 1053 <Electronically signed by Rubin Hadley MD> Cosigner Signature (if applicable): CC: ~ Signed [facility] Work Phone: 1(968) 548-118005-07-2024 History and physical note Author Calderon Swanson [facility] April 05, 2024 5:52am Note Date/Time April 04, 2024 10:03p m [facility] Medical Records Department [address] [place] [address] H&P Exam - Hospitalist 04/04/24 2201 MR#: [id number] Acct: [id number] Name: SAMANTAJESUSITA RAMONA Rep #:[id number] : 1970 54 From: Calderon Trimble DO PCP: VJ Maloney Status:ADM IN Location: [facility] [place] [id number] HPI - General General Date of Admission: [...] consult with Dr. Garcia who presents to [facility] ER complaining of bilateral lower extremity redness [...] isexpected to be greater than 2 midnights. 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 For lunch she [...] (Auto) 91.5 H, Lymph % (Auto) 2.6L, [place] % (Auto) 5.0, Eos % (Auto) 0.0, [...] 55 minutes. Charges/Coding Visit Charges Inpatient E&M: 31331 Init Hosp L2 04/05/24 0552 <Electronically signed by Calderon Ojeda DO> Cosigner Signature (if applicable): CC: Dr. Calderon Ojeda DO; VJ Maloney~ Signed [facility] Work Phone: 1(990) 228-199505-07-2024 Consult note Author Cole Kelly [facility] April 04, 2024 11:58pm Note Date/Time April 04, 2024 11:58p [facility] Medical Records Department [address] [place] [address] Pharmacokinetic/Renal -Consult 04/04/242356 MR#: [id number] Acct: [id number] Name: JESUSITA ENGLAND Rep #:[id number] : 1970 54 From: Cole Melton od PCP: VJ Maloney Status:ADM IN Y Location: [place] [address] Consult Antibiotic Management Pharmacy has been consulted [...] and time ordered]: 04/05 @ 2100 04/04/24 7037 <Electronically signed by Cole seth> Date _ Cole Josephfitobrenda Signature (if applicable): Date CC: ~ Signed [facility] Work Phone: 1(772) 175-567505-07-2024 Discharge summary Author Gian Villanueva [facility] April 04, 2024 10:06pm Note Date/Time April 04, 2024 8:20pm [facility] Medical Records Department [address] [place] [address] Emergency Department Summary 04/04/24 MR#: [id number] Acct: [id number] Name: JESUSITA ENGLAND Rep #:[id number] : 1970 54 From: Gian Davis PCP: VJ Maloney Status:REG ER Location: ED HPI History of Present Illness Chief Complaint: Cellulitis PFSH [facility] Medical History Abnormal echocardiogram Anxiety Ascending aorta [...] occupational status: employed 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 For lunch she [...] reviewed, Vital signs reviewed Constitutional: please see [facility] HENT: MMM Eyes: Pupils equal round and [...] family Consults: Internal medicine ( Dr. Ojeda) [facility] Narrative: Patient was initially tachycardic, febrile tachypneic. [...] medical floor This note was generated with [employer] dictation software. It may contain incorrect words, [...] tab PO DAILY Primary Care Provider: Alondra Rosenberg Referrals: Alondra Rosenberg PA [Primary Care Provider] - What to do if you have Problems For any increased pain, shortness of breath, bleeding, nausea or vomiting, chestpain, or any unexpected problems, contact your Primary Care Provider. Call [facility] ([phone]) or report to the closest Emergency Room. Call 911 if necessary. 04/04/242205 <Electronically signed by Gian Villanueva DO> Cosigner Signature (if applicable): CC: VJ Maloney ~ Signed [facility] Work Phone: 1([phone]) 179-349305-06-2024 Discharge summary Author Gian Villanueva [facility] April 04, 2024 10:06pm Note Date/Time April 04, 2024 8:20pm [facility] Medical Records Department [address] [place] [address] Emergency Department Summary 04/04/24 MR#: [id number] Acct: [id number] Name: JESUSITA ENGLAND Rep #:[id number] 5 : 1970 54 From: Gian Davis PCP: VJ Maloney Status:REG ER Location: ED HPI History of Present Illness Chief Complaint: [facility]ul[facility] Medical History Abnormal echocardiogram Anxiety Ascending aorta [...] occupational status: employed 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 For lunch she [...] family Consults: Internal medicine ( Dr. Ojeda) [facility] Narrative: Patient was initially tachycardic, febrile tachypneic. [...] medical floor This note was generated with [employer] dictation software. It may contain incorrect words, [...] tab PO DAILY Primary Care Provider: Alondra Rosenberg Referrals: Alondra Rosenberg PA [Primary Care Provider] - What to do if you have Problems For any increased pain, shortness of breath, bleeding, nausea or vomiting, chestpain, or any unexpected problems, contact your Primary Care Provider. Call [facility] ([phone]) or report to the closest Emergency Room. Call 911 if necessary. 04/04/242205 <Electronically signed by Gian Villanueva DO> Cosigner Signature (if applicable): CC: VJ Maloney ~ Signed [facility] Work Phone: 1([phone]) 433-777510-06-2023 History of Present illness Narrative* Helder Tavera [...] or fail to improve. documented in this [facility]09-22-2023 Consult note Author Brandt Pierce [facility] August 21, 2023 10:48am Note Date/Time August 21, 2023 10:48am [facility] Medical Records Department [address] [place] [address] Counseling Note - Pharmacy 08/21/23 1047 MR#: [id number] Acct: [id number] Name: JESUSITA ENGLAND Rep #:[id number] 6 : 1970 53 From: Brandt Pierce PCP: VJ Maloney Status:ADM IN Y Location: [facility] [place] XK084-4 Pharmacy [facility] has performed discharge medication [...] 08/21/23 08/21/23 1048 <Electronically signed by Brandt marshall> Date _ Brandt Pino Signature (if applicable): Date CC: ~ Signed [facility] Work Phone: 1(261) 307-139309-22-2023 Discharge summary Author Calderon Ware [facility] August 21, 2023 8:32am Note Date/Time August 21, 2023 8:29am [facility] Medical Records Department [address] [place] [address] Discharge Summary 08/21/23826 MR#: [id number] Acct: [id number] Name: JESUSITA ENGLAND Rep #:[id number] 1 : 1970 53 From: Calderon Ware MD PCP: VJ Maloney Status:ADM IN Location: [facility] [place] [facility] UN095-8 Providers Date of Admission: 08/18/23 Date of Discharge: 08/21/23 Primary Care Physician: VJ Maloney Consultations 08/18/23 10:43 Consult: Infectious Disease Routine Consulting Provider: Wander Garcia Reason for Consult: Recurrent cellulitis EMERGENT Consult: No MD Notified: Yes Date Notified: 08/18/23 Time Notified: [...] % (Auto) 69.7, Lymph % (Auto) 18.6L, Humboldt % (Auto) 9.9, Eos % (Auto) 0.2, [...] Provider: Calderon Ware Primary Care Provider: Alondra Rosenberg Consulting Providers: Arthur Thompson; Wander Garcia Discharge [...] Active Staff] - Within 2 Weeks Alondra Rosenberg PA [Primary Care Provider] - Within 2 Weeks Disposition Disposition (needs filled in before D/C Order can be placed): Home, Self Care Charges/Coding Visit Charges Inpatient E&M: 95698 Disch Hosp >30min 08/21/23 0832 <Electronically signed by Calderon Ware MD> Cosigner Signature (if applicable): CC: Dr. Calderon Ware MD; VJ Maloney~ Signed [facility] Work Phone: 1(243) 935-470909-21-2023 Progress note Author Wander Limonninger [facility] August 20, 2023 10:50am Note Date/Time August 20, 2023 10:51am [facility] Medical Records Department [address] [place] [address] Progress Note - Infect Disease 08/20/23 1050 MR#: [id number] Acct: [id number] Name: JESUSITA ENGLAND Rep #:[id number] 3 : 1970 53 From: Wander marshall MD PCP: VJ Maloney Status:ADM IN Location: [place] YG514-3 Physical Exam Narrative Feeling a little better, no fever, leg sore Const alert and no apparent distress Resp normal air movement and clear to auscultation bilaterally Cardio regular rate and regular rhythm GI soft to palpation, non-tender and non-distended Skin Skin Narrative: RLE a little less red ID ID: Route of nutrition/ use of supplements: [] Nutritional Intake: [] IV Site: [] Smith Catheter: [] Assessment & Plan Assessment/Plan (1) Cellulitis: QUALIFIERS: Site of cellulitis: extremity Site of cellulitis of extremity: lower extremity Laterality: right Qualified Code(s): L03.115 - Cellulitis of right lower limb PLAN: sepsis due to RLE cellulitis - improving on ceftriaxone, will continue. Plan on 10 days omnicef at discharge 300mg bid then fci suppressive amox. will follow (2) Sepsis: 08/20/23 1050 <Electronically signed by Wander Garcia MD> Cosigner Signature (if applicable): CC: ~ Signed [facility] Work Phone: 1([phone]) 487-825909-21-2023 Progress note Author Calderon Ware [facility] August 20, 2023 10:02am Note Date/Time August 20, 2023 7:30am [facility] Medical Records Department [address] [place] [address] Progress Note - Hospitalist 08/20/23729 MR#: [id number] Acct: [id number] Name: JESUSITA ENGLAND Rep #:[id number] 5 : 1970 53 From: Calderon Ware MD PCP: VJ Maloney Status:ADM IN Location: [place] [address]-1 Reason for Visit Reason for Visit: Diagnoses [...] Intake and Output for Last 24 Hours 09/19/23 09/20/23 09/21/23 23:59 23:59 23:59 Intake Total 4825.00 / [...] (Auto) 76.4 H, Lymph % (Auto) 14.3L, Humboldt % (Auto) 8.5, Eos % (Auto) 0.0, [...] documentation, 35minutes Charges/Coding Visit Charges Inpatient E&M: 45710 Subs Hosp L2 08/20/23 1002 <Electronically signed by Calderon Ware MD> Cosigner Signature (if applicable): CC: ~ Signed [facility] Work Phone: 1(226) 259-724509-20-2023 Consult note Author Wander Garcia [facility] August 19, 2023 2:08pm Note Date/Time August 19, 2023 2:06pm [facility] Medical Records Department [address] [place] [address] Consultation - Infectious Dx 08/19/23 1404 MR#: [id number] Acct: [id number] Name: JESUSITA ENGLAND Rep #:[id number] 1 : 1970 53 From: Wander marshall MD PCP: VJ Maloney Status:ADM IN Location: [place] VR105-9 Assessment & Plan Assessment/Plan (1) Cellulitis: QUALIFIERS: [...] performed and neg except as noted above. 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 For lunch she [...] 79.4 H, Lymph % (Auto) 10.2 L, Humboldt % (Auto) 9.2, Eos % (Auto) 0.1, [...] Dr. Wander Garcia MD; VJ Maloney~ Signed [facility] Work Phone: 1([phone]) 474-319809-20-2023 Progress note Author Calderon Ware [facility] August 19, 2023 10:41am Note Date/Time August 19, 2023 7:51am [facility] Medical Records Department [address] [place] [address] Progress Note - Hospitalist 08/19/23 0750 MR#: [id number] Acct: [id number] Name: JESUSITA ENGLAND Rep #:[id number] 0 : 1970 53 From: Calderon Ware MD PCP: VJ Maloney Status:ADM IN Location: [facility] [place] BP644-8 Reason for Visit Reason for Visit: Diagnoses [...] 79.4 H, Lymph % (Auto) 10.2 L, Humboldt % (Auto) 9.2, Eos % (Auto) 0.1, [...] documentation, 35minutes Charges/Coding Visit Charges Inpatient E&M: 49079 Subs Hosp L2 08/19/23 1041 <Electronically signed by Calderon Ware MD> Cosigner Signature (if applicable): CC: ~ Signed [facility] Work Phone: [phone]) 417-679409-19-2023 Progress note Author Calderon Ware [facility] August 18, 2023 10:45am Note Date/Time August 18, 2023 7:42am [facility] Medical Records Department [address] [place] [address] Progress Note - Hospitalist 08/18/23 0738 MR#: [id number] Acct: [id number] Name: JESUSITA ENGLAND Rep #:[id number] : 1970 53 From: Calderon Ware MD PCP: VJ Maloney Status:ADM IN Location: [place] [address] Reason for Visit Reason for Visit: Diagnoses [...] (Auto) 90.9 H, Lymph % (Auto) 3.2L, [place]t % (Auto) 5.0, Eos % (Auto) 0.0, [...] 90.8 H, Lymph % (Auto) 4.5 L, [place]oldt % (Auto) 3.6, Eos % (Auto) 0.0, [...] 23:46 EDT Reading Location ID and State: [facility] [place] Tel , Service support , Physical Exam Narrative GENERAL: cooperative HEENT: [...] 50 Minutes Charges/Coding Visit Charges Inpatient E&M: 12465 Subs Hosp L3 08/18/23 1045 <Electronically signed by Calderon Ware MD> Cosigner Signature (if applicable): CC: ~ Signed [facility] Work Phone: [phone]) [phone] Discharge summary Author Mandy Arce [facility] August 18, 2023 3:05am Note Date/Time August 17, 2023 10:43pm [facility] Medical Records Department [address] [place] [address] Emergency Department Summary 08/17/23 MR#: [id number] Acct: [id number] Name: JESUSITA ENGLAND Rep #:[id number] : 1970 53 From: Mandy Arce MD PCP: VJ Maloney Status:ADM IN Location: [place] [address] HPI History of Present Illness Chief Complaint: [...] develop a fever tonight [facility].9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 For lunch she [...] 90.9 H Lymph % (Auto) 3.2 L Humboldt % (Auto) 5.0 Eos % (Auto) 0.0 [...] 23:46 EDT Reading Location ID and State: [facility] [place] Tel , Service support , EKG Initial EKG: Attestation: I personally [...] folds, particularly BLE Primary Care Provider: Alondra Rosenberg Referrals: Alondra Rosenberg PA [Primary Care Provider] - Disposition Disposition: Acute Care [facility] What to do if you have Problems For any increased pain, shortness of breath, bleeding, nausea or vomiting, chestpain, or any unexpected problems, contact your Primary Care Provider. Call [facility] ([phone]) or report to the closest Emergency Room. Call 911 if necessary. 08/18/23 0305 <Electronically signed by Mandy Arce MD> Cosigner Signature (if applicable): CC: VJ Maloney ~ Signed [facility] Work Phone: 1([phone]) 150-201409-19-2023 History and physical note Author Arthur Thompson [facility] August 18, 2023 12:50am Note Date/Time August 18, 2023 12:46am [facility] Medical Records Department [address] [place] [address] History & Physical Exam 08/18/23 0045 MR#: [id number] Acct: [id number] Name: JESUSITA ENGLAND Rep #:[id number] 2 : 1970 53 From: Arthur Thompson [...] admitted for further IV antibiotics and fluid. 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 For lunch she [...] (Auto) 90.9 H, Lymph % (Auto) 3.2L, Humboldt % (Auto) 5.0, Eos % (Auto) 0.0, [...] 23:46 EDT Reading Location ID and State: [facility] [place] Tel , Service support , Assessment & [...] weight heparin Charges/Coding Visit Charges Inpatient E&M: 90737 Init Hosp L2 08/18/23 0050 <Electronically signed by Arthur Thompson MD> Cosigner Signature (if applicable): CC: Dr. Arthur Thompson MD; VJ Maloney~ Signed [facility] Work Phone: [phone]) 603-363009-01-2023 Discharge summary Author Betty Calvin [facility] July 31, 2023 9:46am Note Date/Time July 31, 2023 7:28am [facility] Medical Records Department [address] [place] [address] Discharge Summary 07/31/23 0722 MR#: [id number] Acct: [id number] Name: SAMANTAJESUSITA RAMONA Rep #:[id number] 0 : 1970 53 From: Betty Calvin MD PCP: VJ Maloney Status:ADM IN Location: [facility] [place] GY080-6 Providers Date of Admission: 07/25/23 Date of Discharge: 07/31/23 Primary Care Physician: VJ Maloney Consultations 07/25/23 02:40 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: 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 Routine Comment: 07/27/23 11:53 Consult: Infectious Disease [...] obesity, recurrent lower extremity cellulitis presented to [facility] 07/25/2023 with bilateral lower extremity cellulitis but [...] Neut % (Auto) 66.9, Lymph % (Auto)21.3, Humboldt % (Auto) 9.3, Eos % (Auto) 0.2, [...] Provider: Betty Calvin Primary Care Provider: Alondra Rosenberg Consulting Providers: Adrianna Mejia; Wander Garcia Instructions Patient Instructions: Cellulitis, Cellulitis Dc Additional Instructions / Restrictions: DISCHARGE INSTRUCTIONS PLEASE READ *Please take this with you to your next doctors appointment* -You will be discharged on another 10 days of antibiotics, cefdinir/Omnicef 300 mg twice daily. This has been sent to your preferred pharmacy [facility] in [place] per our discussion -Please follow-up with Dr. [...] schedule hospital follow-up appointment upon discharge.) Alondra Rosenberg PA [Primary Care Provider] - In 1 Day Disposition Disposition (needs filled in before D/C Order can be placed): Home, Self Care Charges/Coding Visit Charges Inpatient E&M: 10822 Disch Hosp >30min 07/31/23 0946 <Electronically signed by Betty Calvin MD> Alvarez Signature (if applicable): CC: Dr. Betty Calvin MD; VJ Maloney~ Signed [facility] Work Phone: [phone]) 308-304409-01-2023 Discharge summary Author Betty Calvin [facility] July 31, 2023 9:46am Note Date/Time July 31, 2023 7:19am [facility] Medical Records Department [address] [place] [address] Instructions for Home/Discharge Instructions 07/31/23 0716 MR#: [id number] Acct: [id number] Name: JESUSITA ENGLAND Rep #:[id number] 3 : 1970 53 From: Betty Calvin [...] Provider: Betty Calvin Primary Care Provider: Alondra Rosenberg Consulting Providers: Adrianna Mejia; Wander Garcia Instructions Patient Instructions: Cellulitis, Cellulitis Dc Additional Instructions / Restrictions: DISCHARGE INSTRUCTIONS PLEASE READ *Please take this with you to your next doctors appointment* -You will be discharged on another 10 days of antibiotics, cefdinir/Omnicef 300 mg twice daily. This has been sent to your preferred pharmacy on file the [facility] in [place] per our discussion -Please follow-up with Dr. [...] schedule hospital follow-up appointment upon discharge.) Alondra Rosenberg PA [Primary Care Provider] - In 1 Day Disposition Disposition (needs filled in before D/C Order can be placed): Home, Self Care 07/31/23 0946<Electronically signed by Betty Calvin MD>Betty Calvin MD CC: Dr. Adrianna Mejia DO; Dr. Wnader Garcia MD; VJ Maloney ~ Signed [facility] Work Phone: [phone]) 200-488608-31-2023 Progress note Author Betty Calvin [facility] July 30, 2023 10:51am Note Date/Time July 30, 2023 8: 21am [facility] Medical Records Department [address] [place] [address] Progress Note - Hospitalist 07/30/23817 MR#: [id number] Acct: [id number] Name: JESUSITA ENGLAND Rep #:[id number] 2 : 1970 53 From: Betty Calvin MD PCP: VJ Maloney Status:ADM IN Location: [place] [address]-1 Reason for Visit Reason for Visit: Diagnoses Obesity, unspecified (07/25/23) Lymphedema, not elsewhere classified (07/25/23) Cellulitis, unspecified (07/25/23) Hyperglycemia, unspecified (07/25/23) Other specified health status (07/25/23) Subjective Subjective Patient feeling better but extremely [...] % (Auto) 66.0, Lymph % (Auto) 20.6, Humboldt % (Auto) 11.2 H, Eos % (Auto) [...] Ordering Physician: Betty Calvin Referring Physician: Alondra Rosenberg Performed By: Meliza Avila, ISABELA, RVT Physical [...] extremities -Had echocardiogram done on 06/19/2021 at [facility] that showed normal EF and no [...] documentation, 36minutes Charges/Coding Visit Charges Inpatient E&M: 11798 Subs Hosp L2 07/30/23 1051 <Electronically signed by Betty Calvin MD> Cosigner Signature (if applicable): CC: ~ Signed [facility] Work Phone: [phone]) 543-962208-31-2023 Progress note Author Wander Garcia [facility] July 30, 2023 10:17am Note Date/Time July 30, 2023 10 :17am [facility] Medical Records Department [address] [place] [address] Progress Note - Infect Disease 07/30/23 1016 MR#: [id number] Acct: [id number] Name: JESUSITA ENGLAND Rep #:[id number] 2 : 1970 53 From: Wander marshall MD PCP: VJ Maloney Status:ADM IN Location: [place] NO183-1 Physical Exam Narrative Leg still sore, controlled with tylenol for the most part, no fever Const alert and no apparent distress General Appearance: cooperative Resp normal air movement and clear to auscultation bilaterally Cardio regular rate and regular rhythm Skin Skin Narrative: Slowly fading LLE redness ID ID: Route of nutrition/ use of supplements: [] Nutritional Intake: [] IV Site: [] Smith Catheter: [] Assessment & Plan Assessment/Plan (1) Lymphedema associated with obesity: (2) Cellulitis: PLAN: recurrent RLE cellulitis, now developed LLE cellulitis on outpt doxy/keflex. Improving here on vanc/zosyn. 07/27 narrowed ceftriaxone for nonpurulent cellulitis, will need to consider fci amox as prophylaxis and referral to edema clinic for prevention. Added antifungal powder to skin folds. Both legs slowly improving, less red. Ok for home with 10 days omnicef 300mg bid, ID followup in 2 weeks. Will follow 07/30/23 1017 <Electronically signed by Wander Garcia MD> Cosigner Signature (if applicable): CC: ~ Signed [facility] Work Phone: [phone]) 448-695708-30-2023 Progress note Author Wander Garcia [facility] July 29, 2023 4:06pm Note Date/Time July 29, 2023 4: 06pm [facility] Medical Records Department [address] [place] [address] Progress Note - Infect Disease 07/29/23 1605 MR#: [id number] Acct: [id number] Name: JESUSITA ENGLAND Rep #:[id number] 0 : 1970 53 From: Wander marshall MD PCP: VJ Maloney Status:ADM IN Location: [place] SC984-9 Physical Exam Narrative Some pain in legs, no fever Const alert and no apparent distress General Appearance: cooperative Resp normal air movement and clear to auscultation bilaterally Cardio regular rate and regular rhythm GI soft to palpation, non-tender and non-distended Skin Skin Narrative: BLE less red ID ID: Route of nutrition/ use of supplements: [] Nutritional Intake: [] IV Site: [] Smith Catheter: [] Assessment & Plan Assessment/Plan (1) Lymphedema associated with obesity: (2) Cellulitis: PLAN: recurrent RLE cellulitis, now developed LLE cellulitis on outpt doxy/keflex. Improving here on vanc/zosyn. 07/27 narrowed ceftriaxone for nonpurulent cellulitis, will need to consider fci amox as prophylaxis and referral to edema clinic for prevention. Added antifungal powder to skin folds. Both legs slowly improving, less red. Will follow 07/29/236 <Electronically signed by Wander Garcia MD> Cosigner Signature (if applicable): CC: ~ Signed [facility] Work Phone: [phone]) [phone] Progress note Author Betty Calvin [facility] July 29, 2023 9:14am Note Date/Time July 29, 2023 8: 10am [facility] Medical Records Department [address] [place] [address] Progress Note - Hospitalist 07/29/23 0808 MR#: [id number] Acct: [id number] Name: JESUSITA ENGLAND Rep #:[id number] 0 : 1970 53 From: Betty Calvin MD PCP: VJ Maloney Status:ADM IN Location: [place] [address] Reason for Visit Reason for Visit: Diagnoses [...] (Auto) 69.9, Lymph % (Auto) 17.9 L, Humboldt % (Auto) 10.9 H, Eos % (Auto) [...] of outpatient doxycycline -Agree with Vanco and Andren for now -No wounds to culture -Elevate lower extremities -We will consult wound nurse to help with wrapping lower extremities -Had echocardiogram done on 06/19/2021 at [facility] that showed normal EF and no [...] documentation, 36minutes Charges/Coding Visit Charges Inpatient E&M: 36803 Subs Hosp L2 07/29/23 0914 <Electronically signed by Betty Calvin MD> Cosigner Signature (if applicable): CC: ~ Signed [facility] Work Phone: 1([phone]) 412-460908-29-2023 Progress note Author Betty Calvin [facility] July 28, 2023 1:16pm Note Date/Time July 28, 2023 1: 16pm [facility] Medical Records Department [address] [place] [address] Progress Note - Hospitalist 07/28/23 1313 MR#: [id number] Acct: [id number] Name: JESUSITA ENGLAND Rep #:[id number] 6 : 1970 53 From: Betty Calvin MD PCP: VJ Maloney Status:ADM IN Location: [address] Reason for Visit Reason for Visit: Diagnoses [...] 71.0 H, Lymph % (Auto) 16.6 L, Humboldt % (Auto) 11.3 H, Eos % (Auto) [...] extremities -Had echocardiogram done on 06/19/2021 at [facility] that showed normal EF and no [...] documentation, 36minutes Charges/Coding Visit Charges Inpatient E&M: 67942 Subs Hosp L2 07/28/23 1316 <Electronically signed by Betty Calvin MD> Cosigner Signature (if applicable): CC: ~ Signed ADDENDUM by Dr. Betty Calvin MD on 07/28/23 at 1316 Visit Charges Inpatient E&M: 87911 Subs Hosp L2 07/28/23 1316<Electronically signed by Betty Calvin MD> Cosigner Signature (if applicable): cc: ~* Signed [facility] Work Phone: 1([phone]) 578-647708-29-2023 Progress [facility] July 28, 2023 10:30am Note Date/Time July 28, 2023 10 :30am [facility] Medical Records Department [address] [place] [address] Progress Note - Infect Disease 07/28/23 1028 MR#: [id number] Acct: [id number] Name: JESUSITA ENGLAND Rep #:[id number] 2 : 1970 53 From: Wander marshall MD PCP: VJ Maloney Status:ADM IN Location: [facility] [place] RM952-9 Physical Exam Narrative Feeling about the same, [...] [] Nutritional Intake: [] IV Site: [] Smith Catheter: [] Assessment & Plan Assessment/Plan (1) Lymphedema associated with obesity: (2) Cellulitis: PLAN: recurrent RLE cellulitis, now developed LLE cellulitis on outpt doxy/keflex. Improving here on vanc/zosyn. 07/27 narrowed ceftriaxone for nonpurulent cellulitis, will need to consider fci amox as prophylaxis and referral to edema clinic for prevention. Will add antifungal powder to skin folds Will follow 07/28/23 1030 <Electronically signed by Wander Garcia MD> Cosigner Signature (if applicable): CC: ~ Signed [facility] Work Phone: [phone] Consult note [facility] July 27, 2023 2:03pm Note Date/Time July 27, 2023 2: 03pm [facility] Medical Records Department [address] [place] [address] Consultation - Infectious Dx 07/27/23 1358 MR#: [id number] Acct: [id number] Name: SAMANTAJESUSITAKATHY GREENE Rep #:[id number] : 1970 53 From: Wander marshall MD PCP: VJ Maloney Status:ADM IN Location: MS3 [id number] Assessment & Plan Assessment/Plan (1) Lymphedema associated with obesity: (2) Cellulitis: PLAN: recurrent RLE cellulitis, now developed LLE cellulitis on outpt doxy/keflex. Improving here on vanc/zosyn. Will narrow to ceftriaxone for nonpurulent cellulitis, will need to consider fci amox as prophylaxis and referral to edema [...] performed and neg except as noted above. 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 For lunch she [...] 73.7 H, Lymph % (Auto) 14.6 L, Humboldt % (Auto) 10.7 H, Eos % (Auto) [...] Signed: Tacos Liz MD at 10:13 EDT , 07/27/23 1403 <Electronically signed by Wander Garcia MD> Cosigner Signature (if applicable): CC: Dr. Adrianna Mejia DO; Dr. Wander Garcia MD; VJ Maloney~ Signed [facility] Work Phone: 1(301) 356-298108-28-2023 Progress note Author Betty Calvin [facility] July 27, 2023 11:56am Note Date/Time July 27, 2023 9: 38am [facility] Medical Records Department [address] [place] [address] Progress Note - Hospitalist 07/27/23 0936 MR#: [id number] Acct: [id number] Name: JESUSITA ENGLAND Rep #:[id number] : 1970 53 From: Betty Calvin MD PCP: VJ Maloney Status:ADM IN Location: [place] [address] Reason for Visit Reason for Visit: Diagnoses [...] Total 2640 / 2940 3280.00 / 3630.00 1929 Balance 2640 / 2940 3280.00 / 3630.00 1929 Lab / Micro Data 07/27/23 05:26 07/27/23 [...] 73.7 H, Lymph % (Auto) 14.6 L, Humboldt % (Auto) 10.7 H, Eos % (Auto) [...] of outpatient doxycycline -Agree with Vanco and Ryan for now -No wounds to culture -Elevate lower extremities -We will consult wound nurse to help with wrapping lower extremities -Had echocardiogram done on 06/19/2021 at [facility] that showed normal EF and no [...] on admission Charges/Coding Visit Charges Inpatient E&M: 95855 Subs Hosp L2 07/27/23 1156 <Electronically signed by Betty Calvin MD> Cosigner Signature (if applicable): CC: ~ Signed [facility] Work Phone: [phone]) 893-489908-27-2023 Progress note Author Betty Calvin [facility] July 26, 2023 11:44am Note Date/Time July 26, 2023 8: 54am [facility] Medical Records Department [address] [place] [address] Progress Note - Hospitalist 07/26/23 0850 MR#: [id number] Acct: [id number] Name: JESUSITA ENGLAND Rep #:[id number] : 1970 53 From: Betty Calvin MD PCP: VJ Maloney Status:ADM IN Location: [place] [address] Reason for Visit Reason for Visit: Diagnoses [...] (Auto) 84.5 H, Lymph % (Auto) 8.3L, Humboldt % (Auto) 6.5, Eos % (Auto) 0.0, [...] (Auto) 71.0 H, Lymph % (Auto) 17.4L, Humboldt % (Auto) 10.6 H, Eos % (Auto) [...] extremities -Had echocardiogram done on 06/19/2021 at [facility] that showed normal EF and no [...] documentation, 36minutes Charges/Coding Visit Charges Inpatient E&M: 49196 Subs Hosp L2 07/26/23 1144 <Electronically signed by Betty Calvin MD> Cosigner Signature (if applicable): CC: ~ Signed [facility] Work Phone: [phone]) 829-381108-27-2023 Consult note Author Cole Kelly [facility] July 26, 2023 3:26am Note Date/Time July 26, 2023 3: 26am [facility] Medical Records Department [address] [place] [address] Pharmacokinetic/Renal -Consult 07/26/23324 MR#: [id number] Acct: [id number] Name: JESUSITA ENGLAND Rep #:[id number] : 1970 53 From: Cole Melton od PCP: VJ Maloney Status:ADM IN Location: [place] [address] Consult Antibiotic Management Pharmacy has been consulted [...] [date and time ordered]: 07/28 @ 0730 07/26/23 032 <Electronically signed by Cole seth> Date _ Cole Pino Signature (if applicable): Date CC: ~ Signed [facility] Work Phone: [phone]) [phone] Progress note Author Betty Calvin [facility] July 25, 2023 2:12pm Note Date/Time July 25, 2023 8: 31am [facility] Medical Records Department [address] [place] [address] Progress Note - Hospitalist 07/25/23826 MR#: [id number] Acct: [id number] Name: JESUSITA ENGLAND Rep #:[id number] : 1970 53 From: Betty Calvin MD PCP: VJ Maloney Status:ADM IN Location: [place] [address] Reason for Visit Reason for Visit: Diagnoses [...] 84.5 H, Lymph % (Auto) 8.1 L, Humboldt % (Auto) 6.7, Eos % (Auto) 0.0, [...] 89.3 H, Lymph % (Auto) 4.5 L, Humboldt % (Auto) 5.5, Eos % (Auto) 0.0, [...] extremities -Had echocardiogram done on 06/19/2021 at [facility] that showed normal EF and no [...] Cosigner Signature (if applicable): CC: ~ Signed [facility] Work Phone: 1(360) [phone] Consult note Author Cole Kelly [facility] July 25, 2023 6:04am Note Date/Time July 25, 2023 6: 04am [facility] Medical Records Department [address] [place] [address] Pharmacokinetic/Renal -Consult 07/25/23 0604 MR#: [id number] Acct: [id number] Name: JESUSITA ENGLAND Rep #:[id number] : 1970 53 From: Cole Melton od PCP: VJ Maloney Status:ADM IN Y Location: [place] [address] Consult Antibiotic Management Pharmacy has been consulted [...] on [date and time ordered]: 07/25 @ 233 07/25/23 0604 <Electronically signed by Cole seth> Date _ Cole Pino Signature (if applicable): Date CC: ~ Signed [facility] Work Phone: [phone]) [phone] History and physical note Author Adrianna Mejia [facility] July 25, 2023 1:10am Note Date/Time July 25, 2023 12 :48am [facility] Medical Records Department [address] [place] [address] H&P Exam - Hospitalist 07/25/23 0044 MR#: [id number] Acct: [id number] Name: JESUSITA ENGLAND Rep #:[id number] : 1970 53 From: Adrianna Mejia DO PCP: VJ Maloney Status:ADM IN Location: [address] HPI - General General Date of Admission: 07/25/23 Date of Service: 07/25/23 Chief Complaint: LLE Redness HPI Narrative JESUSITA ENGLAND, is a 53 F who presented to the emergency department at [facility] late in the evening on 07/24/2023 with [...] antibiotics and request for admission was made. 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 For lunch she [...] 84.5 H, Lymph % (Auto) 8.1 L, Humboldt % (Auto) 6.7, Eos % (Auto) 0.0, [...] extremities -Had echocardiogram done on 06/19/2021 at [facility] that showed normal EF and no [...] on admission Charges/Coding Visit Charges Inpatient E&M: 36319 Init Hosp L2 07/25/23 0110 <Electronically signed by Adrianna Mejia DO> Cosigner Signature (if applicable): CC: Dr. Adrianna Mejia DO; VJ Maloney~ Signed [facility] Work Phone: [phone]) 129-886408-26-2023 History and physical note Author Adrianna Mejia [facility] July 25, 2023 1:10am Note Date/Time July 25, 2023 12 :48am [facility] Medical Records Department [address] [place] [address] H&P Exam - Hospitalist 07/25/23 0044 MR#: [id number] Acct: [id number] Name: JESUSITA ENGLAND Rep #:[id number] : 1970 53 From: Adrianna Mejia DO PCP: VJ Maloney Status:ADM IN Location: [place] [address] HPI - General General Date of Admission: 07/25/23 Date of Service: 07/25/23 Chief Complaint: LLE Redness HPI Narrative JESUSITA ENGLAND, is a 53 F who presented to the emergency department at [facility] late in the evening on 07/24/2023 with [...] antibiotics and request for admission was made. 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 For lunch she [...] 84.5 H, Lymph % (Auto) 8.1 L, Humboldt % (Auto) 6.7, Eos % (Auto) 0.0, [...] extremities -Had echocardiogram done on 06/19/2021 at [facility] that showed normal EF and no [...] on admission Charges/Coding Visit Charges Inpatient E&M: 07459 Init Hosp L2 07/25/23 0110 <Electronically signed by Adrianna Mejia DO> Cosigner Signature (if applicable): CC: Dr. Adrianna Mejia DO; VJ Maloney~ Signed [facility] Work Phone: [phone]) 346-210208-26-2023 Discharge summary Author Arthur Lara [facility] July 25, 2023 12:14am Note Date/Time July 24, 2023 11 :14pm [facility] Medical Records Department [address] [place] [address] Emergency Department Summary 07/24/23 MR#: [id number] Acct: [id number] Name: JESUSITA ENGLAND Rep #:[id number] : 1970 53 From: Arthur Lara MD PCP: JV Maloney Status:REG ER Location: ED HPI History [...] feel weak. She is not a diabetic [facility] Medical History Abnormal echocardiogram Anxiety Ascending aorta [...] occupational status: employed 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 For lunch she [...] of outpatient treatment. I gave Nestor and Andren in the ED. Lab Data Labs: Laboratory Results - last 24 hr 07/24/23 23:22 WBC 11.1 H RBC 4.40 Hgb 12.2 Hct 38.0 MCV 86.4 MCH 27.7 MCHC 32.1 RDW Std Deviation 48.1 H RDW Coeff of Rani 15.2 H Plt Count 209 MPV 9.2 Immature Gran % (Auto) 0.600 Neut % (Auto) 84.5 H Lymph % (Auto) 8.1 L Humboldt % (Auto) 6.7 Eos % (Auto) 0.0 [...] mg PO DAILY Primary Care Provider: Alondra Rosenberg Referrals: Alondra Rosenberg PA [Primary Care Provider] - Disposition Disposition: Acute Care Hospital [facility] What to do if you have Problems For any increased pain, shortness of breath, bleeding, nausea or vomiting, chestpain, or any unexpected problems, contact your Primary Care Provider. Call [facility] ([phone]) or report to the closest Emergency Room. Call 911 if necessary. 07/25/23 0014 <Electronically signed by Arthur Lara MD> Cosigner Signature (if applicable): CC: VJ Maloney ~ Signed [facility] Work Phone: [phone]) [phone] Discharge summary Author Arthur [facility] July 25, 2023 12:14am Note Date/Time July 24, 2023 11 :14pm [facility] Medical Records Department [address] [place] [address] Emergency Department Summary 07/24/23 MR#: [id number] Acct: [id number] Name: JESUSITA ENGLAND Rep #:[id number] : 1970 53 From: Arthur Lara [...] feel weak. She is not a diabetic [facility] Medical History Abnormal echocardiogram Anxiety Ascending aorta [...] 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 For lunch she [...] of outpatient treatment. I gave Nestor and Andretremayne in the ED. Lab Data Labs: Laboratory Results - last 24 hr 07/24/23 23:22 WBC 11.1 H RBC 4.40 Hgb 12.2 Hct 38.0 MCV 86.4 MCH 27.7 MCHC 32.1 RDW Std Deviation 48.1 H RDW Coeff of Rani 15.2 H Plt Count 209 MPV 9.2 Immature Gran % (Auto) 0.600 Neut % (Auto) 84.5 H Lymph % (Auto) 8.1 L Humboldt % (Auto) 6.7 Eos % (Auto) 0.0 [...] mg PO DAILY Primary Care Provider: Alondra Rosenberg Referrals: Alondra Rosenberg, VJ [Primary Care Provider] - Disposition Disposition: Acute Care Hospital [facility] What to do if you have Problems For any increased pain, shortness of breath, bleeding, nausea or vomiting, chestpain, or any unexpected problems, contact your Primary Care Provider. Call [facility] ([phone]) or report to the closest Emergency Room. Call 911 if necessary. 07/25/2313 <Electronically signed by Arthur Lara MD> Cosigner Signature (if applicable): CC: VJ Maloney ~ Signed [facility] Work Phone: [phone]) [phone] Hospital Discharge instructions Additional Instructions Ultrasound negative for DVT. Recurrent cellulitis right lower extremity. White count 14.9. Lactic acid normal at 1.6. Your erythema has been outlined. Take antibiotic as prescribed. Follow-up with your doctor closely. Return if worsening symptoms.[facility] Work Phone: [phone]) [phone] NoteChief Complaint An interactive audio and video telecommunication system which permits real time communications between the patient (at the originating site) and provider (at the distant site) was utilized to providethis telehealth service. Verbal consent was requested and obtained from JESUSITA ENGLAND on this date, 02/02/2023 08:30 AM , [...] instruction: Good Anticipated Complianc (more content not included)...[id number] Note [facility]08-04-2021 History of Present illness Narrative* Nargis Bhat RN - 07/03/2021 5:48 PM EDT Pt PICC line removed. Pt discharge report called to [place] Jessie Haq RN. Pt belongings packed and transported with patient. Pt family aware of discharge to rehab. Pt transported via [employer]. * Humaira Michael MD - 07/03/2021 8:52 AM EDT Images from the original note were not included. [facility] Pul[facility] Critical Care and Sleep Medicine Patient - Jesusita England, Age - 51 y.o. - 1970 Room Number - [id number] Consulting - Ruth Soni DO Primary Care [...] (06/24/212109) sodium chloride 25 mL (06/16/21 0928) sodium [...] -Will be sent to IP rehab in [place] 07/03 Anemia with low MCV 2/2 iron [...] to monitor Dispo: will be sent to rehab in [place] today 07/03 pending TCC note - Goals [...] and examined by myself on 07/03/21 * Latosha Kay - 07/02/2021 12:22 PM EDT Images from the original note were not included. Nephrology Progress Note Patient: Jesusita England Room number: [id number] Date of Admit: 06/03/2021 LOS: 29 days Admitting physician: Ruth Soni DO Referring physician: Ruth Soni, DO Assessment/Plan: 1. Non-oliguric MIRIAM - etiology [...] as directed. [facility] Lat[facility] Kay MD Pager [phone] [facility] [phone] HPI: Jesusita England is a 51 y.o. [...] Date 07/02/21 0000 - 07/02/21 2359 Shift 5230-4645 0234-5477 6322-0861 24 Hour Total INTAKE P.O.(mL/kg/hr) 200 200 [...] intact. Memory recall intact LABS: Recent Labs 06/30/21 0202 07/01/21 0323 07/02/21 0522 WBC 6.8 5.5 4.9 HGB 9.3* 8.8* 8.7* HCT 28.8* 27.4* 27.4* MCV 74.1* 74.4* 75.1* PLT 206 216 224 Lab Results Component Value Date IRON 27 (L) 06/23/2021 TIBC 273 06/23/2021 FERRITIN 358 (H) 06/21/2021 No results found for: FMIIQEYB27 Recent Labs 06/30/21 02007/01/21 0323 07/02/21 0522 NA 134* 135 139 K 5.2* 5.0 [...] from the original note were not included. [facility] Pul[facility] Critical Care and Sleep Medicine Patient - Jesusita England, Age - 51 y.o. - 1970 Room Number - [id number] Consulting - Ruth Soni DO Primary Care [...] 0928) PRN meds used in last 24hrs: NA [...] for BiPAP and outpatient sleep study - 11/03 settings - 4L oxygen overnight, 2L with [...] on general medicine service pending placement at rehab. Resident Physician Statement I have discussed [...] Progress Note Patient: Jesusita England Room number: [id number] Date of Admit: 06/03/2021 LOS: 28 days [...] to 1500 mL Latosha Kay MD Pager [phone] [facility] [phone] HPI: Jesusita England is a 51 y.o. [...] (!) 418 lb (189.6 kg) Date 07/01/21 - 07/01/21 2359 Shift 7659-1803 1517-8236 0019-3248 24 Hour Total INTAKE P.O.(mL/kg/hr) 400(0.3) 400 [...] 358 (H) 06/21/2021 No results found for: [id number] Recent Labs 06/29/21 0630 06/30/21 0202 07/01/21 [...] 6.4 (H) 07/01/2021 No components found for: CNGG62H No results for input(s): COLORU, CLARITYU, PH, [...] decreased to 2 Liters today. Plans for [place] [facility] per TCC notes. Nephro following: ARF - likely due to ATN from Vancomycin toxicity and intravascular volume depletion. Pt endorses good intake/appetite, discussed with RD phosphorus restriction; RD provided low phosphorus nutrition information, written and oral. Malnutrition Assessment: Malnutrition Status: At risk for malnutrition (Comment) (pt extubated and tolerating oral diet without issues, 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 following- regular/thin liquids recommendations, pt weight has remained stable during admit, no significant physical signs) Context: Acute Estimated Daily Nutrient Needs: Energy (kcal): 1250-1420kcals/day; Weight Used for Energy Requirements: Gibbon Protein (g): 68-85gm pro/day; Weight Used for Protein Requirements: Gibbon Fluid (ml/day): per MD Recommendations; Method Used [...] Weight: 418 lb (189.6 kg) (05/31/20 per [facility]) Gibbon Body Weight: 125 lbs; % Gibbon Body Weight 335.2 % BMI: 69.7 Adjusted [...] Phos - elevated. HEPATIC: Recent Labs 06/30/21 0202 AST 29 ALT 30 BILITOT 0.4 ALKPHOS [...] Planning: Too soon to determine Contact: Pager #[phone] * Senia Gutiérrez, WAITER/WAITRESS BAR - 07/01/2021 10:33 AM EDT Physical Therapy Facility/Department: [facility] Daily Treatment Note NAME: Jesusita England : [...] Other position/activity restrictions: COVID 19- off isolation; Yamile phi bed; 3LO2 NC; lucho Subjective General Chart Reviewed: Yes [...] x 10 reps, 1,000-1,250 AM-PAC Score [facility] Inpatient Mobility Raw Score : 7 (07/01/21 103) [facility] Inpatient T-Scale Score : 26.42 (07/01/211032) Mobility Inpatient CMS 0-100% Score: 92.36 (07/01/213) Mobility Inpatient [facility] G-Code Modifier : CM (07/01/211032) Goals Short [...] 5 (doctor) Senia Gutiérrez PTA * Janet Mora, KIMBERLY - 07/01/2021 9:59 AM EDT Occupational Therapy Facility/Department: [facility] Daily Treatment Note NAME: Jesusita England [...] were not included. Pulmonology Progress Note Jesusita England : 1970(51 y.o.) [...] mL/hr (06/24/212109) sodium chloride 25 mL (06/16/21927) Objective: BP 127/82 Pulse 85 Temp 96.2 [...] and aerosols; PRN, may not be needed custodial 3 Volume management per nephrology 4 Incentive [...] PROGRESS NOTE PATIENT NAME: Jesusita England ROOM: [facility] SERVICE DATE: 06/30/2021 SERVICE TIME: 12:57 PM LENGTH OF STAY: 27 day(s) REFERRING PHYSICIAN: Ruth Soni DO PRIMARY CARE PHYSICIAN: No primary care provider on file. OUTPATIENT MAINTENANCE SHOP LABORER: None ACTIVE & BACKGROUND PROBLEM LIST: 1. [...] Subcutaneous BID INPATIENT INFUSIONS: dextrose 100 mL/hr (06/24/21 2110) sodium chloride 25 mL (06/16/21 0928) PHYSICAL EXAM: Vitals: 06/30/21 0141 06/30/21 0546 06/30/21 0916 06/30/21 0925 BP: 123/75 Pulse: 87 Resp: Temp: 96.7 F (35.9 C) TempSrc: Temporal [...] (appropriate) affect LABS AND DIAGNOSTICS: Recent Labs 06/28/2133906/29/2162906/30/21 0202 WBC 5.7 4.6 6.8 HGB 9.2* 11.1* 9.3* HCT 28.6* 35.1 28.8* MCV 74.2* 75.5* 74.1* PLT 184 163 206 Lab Results Component Value Date IRON 27 (L) 06/23/2021 TIBC 273 06/23/2021 FERRITIN 358 (H) 06/21/2021 Recent Labs 06/28/2133906/29/2162906/30/21 0202 NA 130* 131* 132* 134* K [...] and make BiPAP setting to reflect. Pager: [phone] Associated attestation - Kleber Toure DO - [...] PROGRESS NOTE PATIENT NAME: Jesusita England ROOM: [facility]1/327913 SERVICE DATE: 06/29/2021 SERVICE TIME: 3:24 PM LENGTH OF STAY: 26 day(s) REFERRING PHYSICIAN: uRth Soni DO PRIMARY CARE PHYSICIAN: No primary care provider on file. OUTPATIENT MAINTENANCE SHOP LABORER: None ACTIVE & BACKGROUND PROBLEM LIST: 1. [...] UTI s/p Cefepime Tx) - replaced urethral smith with urethral Pure Wick external cath -Agree Dysphagia/ Post extubation dysphagia - 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 therapy following - Protonix 40 mg po [...] PROGRESS NOTE PATIENT NAME: Jesusita England ROOM: 1561/842986 SERVICE DATE: 06/28/2021 SERVICE TIME: 7:16 PM LENGTH OF STAY: 25 day(s) REFERRING PHYSICIAN: Ruth Soni DO PRIMARY CARE PHYSICIAN: No primary care provider on file. OUTPATIENT MAINTENANCE SHOP LABORER: None ACTIVE & BACKGROUND PROBLEM LIST: 1. [...] Date 06/28/21 0000 - 06/28/21 2359 Shift 3146-6796 4221-4910 1786-2728 24 Hour Total INTAKE P.O.(mL/kg/hr) 800(0.5) 800 [...] 06/05/2021 HEPCAB NOT DETECTED 06/05/2021 RENAL US 2020.06.26 Right and left kidneys measure 11.7 x [...] in the care of this patient, * Brock Senia Carolann, WAITER/WAITRESS BAR - 06/28/2021 2:42 PM EDT Physical Therapy Facility/Department: [facility] Daily Treatment Note NAME: Jesusita England [...] Other position/activity restrictions: COVID [facility]; alexandrevack Subjective General Chart Reviewed: Yes Family / [...] Pumps: x 10 reps each AM-PAC Score AM-PAC Inpatient Mobility Raw Score : 7 (06/28/21 1441) AM-PAC Inpatient T-Scale Score : 26.42 (06/28/211440) Mobility Inpatient CMS 0-100% Score: 92.36 (06/28/211440) Mobility Inpatient CMS G-Code Modifier : CM [...] (tpx2) Senia Gutiérrez PTA * Lanny Mejia, MICROCHIP SPECIALIST - AUTO MECHANIC APPRENTICE - 06/28/2021 1:28 PM EDT Images from the original note were not included. [facility] Follow up Note Jesusita England AGE: 51 y.o. GENDER: female : 1970 EPISODE DATE: Subjective: HISTORY of PRESENT ILLNESS HPI Jesusita England is a 51 y.o. female who presents for a wound follow up. History of Wound Context: Patient presented 3 weeks ago as a transfer from [facility] due to level of care benefits at [facility] and deterioration. At time, pt stated that [...] she needed medical evaluation. Patient arrived [facility] on06[facility]. Interval History: The patient is [...] in no acute distress Lower back: improved. 7b5iytw yellow slough with surrounding pink tissue. Fungal [...] from the original note were not included. [facility] Pul[facility] Critical [facility] and Sleep Medicine Patient - Jesusita England, Age - 51 y.o. - 1970 Room Number - [id number] Consulting - Ruth Soni DO Primary Care Physician - No primary care provider on file[id number] Date of Admission - 06/03/2021 1:32 PM [...] (06/24/212109) sodium chloride 25 mL (06/16/21 0928) sodium [...] List Active Hospital Problems Diagnosis Date Noted [facility]DC (current) use of antibiotics [Z79.2] MIRIAM (acute [...] patient. Questions and concerns addressed. * Horacio Linares DO - 06/28/2021 7:43 AM EDT Images from the original note were not included. Med Team Progress Note Jesusita Marshall Samanta : 1970(51 y.o.) Date: June 28, 2021 Med Team: C Attending: Dr. Sellers Chief Complaint: SOB Subjective: [...] UTI s/p Cefepime Tx) - replaced urethral smith with urethral Pure Wick external cath Dysphagia/ Post extubation dysphagia - 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 therapy following - Protonix 40 mg po [...] to facility to start aggressive rehabilitation. Pager: [phone] I spent over 51% total time of 40 minutes counseling (or coordinating care). Discussed current planof care with patient. Coordinated care with resident team. * Latosha Kay - 06/27/2021 3:22 PM EDT Images from the original note were not included. Nephrology Progress Note Patient: Jesusita England Room number: [id number] Date of Admit: 06/03/2021 LOS: 24 days [...] was extubated 06/18 and transferred to the [facility] and has remained on 5L NC. [...] Got 1 dose lasix (06/25), last na [id number]. Will not give IVF or lasix for now unless acutely indicated. Her o2 reqts have come down, continue FR. Dr april Araujo will be covering 06/18-06/30, I will be back Thursday Latosha Kay MD Pager [phone] [facility] [phone] HPI: Jesusita England is a 51 y.o. [...] Date 06/27/21 0000 - 06/27/21 2359 Shift [id number] 0026-0967 2778-0242 24 Hour Total INTAKE Shift Total(mL/kg) OUTPUT [...] and judgment intact. LABS: Recent Labs 06/25/21 03406/26/21 0454 06/27/21 010 WBC 7.2 6.1 6.1 HGB 10.7* 9.7* 9.1* HCT 33.6* 30.3* 28.3* MCV 74.9* 75.0* 75.2* PLT 155 140 168 Lab Results Component Value Date IRON 27 (L) 06/23/2021 TIBC 273 06/23/2021 FERRITIN 358 (H) 06/21/2021 No results found for: [id number] Recent Labs 06/25/21 0349 06/25/21 1405 06/25/21 2221 06/25/21 22206/26/21 0454 06/27/21 0101 06/27/21 1310 NA 125* [...] 4.8 (H) 06/27/2021 No components found for: [id number] Recent Labs 06/26/21 1520 COLORU Yellow LABSPEC 1.007 GLUCOSEU Normal LEUKOCYTESUR Negative BILIRUBINUR Negative UROBILINOGEN Normal RBCUA 3-5* WBCUA 3-5 BACTERIA Moderate* Diagnostic Studies: CXR: reviewed in PACS. Personally reviewed available data [labs, MARS, radiologic studies, and electronic records]. Pleasecall with any questions. * Senia Gutiérrez, WAITER/WAITRESS BAR - 06/27/2021 3:05 PM EDT Physical Therapy Facility/Department: [facility] Daily Treatment Note NAME: Jesusita England [...] x 10 reps each G-Code OutComes Score [facility] Score [facility] Inpatient Mobility Raw Score : 7 (06/27/21 1505) [facility] Inpatient T-Scale Score : 26.42 (06/27/21 [...] 06/18 and transferred to the floors on 06/21. She is currently on aerosols with hypertonic [...] mL/hr (06/24/212109) sodium chloride 25 mL (06/16/21927) Objective: Vitals: Temp (24hrs), Av.3 F (36.8 [...] suspicious skin lesions noted BMP: Recent Labs 06/25/21 2221 06/25/21 2221 06/26/21 0454 06/27/21 0101 NA 126* < > 127* 126* 126* [...] nephrology; ideally would be diuresed * Horacio Linares, DO - 06/27/2021 8:48 AM EDT Images [...] - per social work note, insurance denied [place] [facility] TCU; will try snf Anemia with [...] UTI s/p Cefepime Tx) - replaced urethral smith with urethral Pure Wick external cath Dysphagia/ Post extubation dysphagia - 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 therapy following - Protonix 40 mg po [...] I have discussed the care of Jesusita Marshall Samanta with the medical student and/or resident. I [...] given by consultants and care team. Pager: [phone] I spent over 51% total time of 43 minutes counseling (or coordinating care). Discussed current planof care with patient. Coordinated care with resident team. Also discussed with respiratory therapy. * Amie Chaidez, 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 - 06/26/2021 3:50 PM EDT Speech Language Pathology Facility/Department: [facility] Dysphagia Daily Treatment Note NAME: Jesusita [...] Trials: Thin Single and sequential straw sips [place] NA Honey NA Puree NA Solid Fredrick [...] 15:20 Time out: 15:40 Amie Chaidez MA, CCC-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 * Monae Martinez, DO - 06/26/2021 8:35 AM EDT Images [...] (06/16/21927) PRN meds used in last 24hrs: Acetaminophen [...] UTI s/p Cefepime Tx) - replaced urethral smith with urethral Pure Wick external cath Rising Alk Phos (resolved) - 78--> 101 --> 149 -> 127 (06/22) -> 116 (06/23)-> 112 (06/24) -> 111 (06/25) - continues to downtrend, monitor Dysphagia/ Post extubation dysphagia - 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 therapy following - Protonix 40 mg po [...] She is asking that I do a Wfck-tt-Dlad for Rehab from insurance as animal rehabilitator (per Maggie) thinks they can help her a lot. I will reach out to [facility] to help start that process. Patient currently not ready for discharge given rising Cr and hyponatremia still in workup process. - SpO2 100% last night and 99% today on 5L. Need to wean oxygen down to determine what her actual needs are. Pager: [phone] I spent over 51% total time of [...] very weak, SW following for placement at [facility] as pt was denied [...] extubated and tolerating oral diet without issues, 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 following- regular/thin liquids recommendations, pt weight has [...] Weight: 418 lb (189.6 kg) (05/31/20 per [facility]) [place] Body Weight: 125 lbs; % [place] Body Weight 335.2 % BMI: 69.7 Adjusted [...] determine Contact: pager [phone] or PerfectServe * Monae Martinez, DO - 06/25/2021 8:10 AM EDT Images [...] recommends IP rehab - [facility] pt (pending insurance [...] UTI s/p Cefepime Tx) - replaced urethral smith with urethral Pure Wick external cath Rising Alk Phos - 78--> 101 --> 149 -> 127 (06/22) -> 116 (06/23)-> 112 (06/24) - continues to downtrend, monitor Dysphagia/ Post extubation dysphagia - 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 therapy following - Protonix 40 mg po [...] show Na<5). - respiratory status improving. Pager: [phone] I spent over 51% total time of 27 minutes counseling (or coordinating care). Discussed current planof care with patient. Coordinated care with resident team. * Khai Curtis, WAITER/WAITRESS BAR - 06/24/2021 3:12 PM EDT Physical Therapy Facility/Department: [facility] Daily Treatment Note NAME: Jesusita England : 1970 Date of Service: 06/24/2021 Discharge Recommendations: LTACH PT Equipment Recommendations Equipment Needed: No Other: tbd Assessment Body structures, Functions, Activity limitations: Decreased functional mobility ;Decreased ADL status;Decreased strength;Decreased balance;Decreased endurance Assessment: Pt had just finsihed standing trails w/ OT upon WAITER/WAITRESS BAR arrival today, but agreeable to learning HEP Ex to do on own between PT Rx. Pt able to complete all BLE ther ex w/ no c/o increased pain today. Pt able to use flat sheet minimally for self-assisted ROM Ex. Pt would benefit from ongoingcility based therapy post Disch. Specific instructions for [...] position/activity restrictions: COVID 19- off isolation; [facility]; 5LO2 NC; Subjective General Chart Reviewed: Yes Response To Previous Treatment: Patient with no complaints from previous session. Subjective Subjective: Pt just getting laid down in bed w/ OT upon WAITER/WAITRESS BAR arrival. Pt agreeable to PT. nsg cleared pt for PT. Pt is SEE TODAY per TCC General Comment Comments: WAITER/WAITRESS BAR wore N95 mask, gloves during PT Rx. 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 Share cooking, [...] /ADL, Safety Education & Training OutComes Score AM-PAC Daily Activity Inpatient How much help for [...] much help for eating meals?: A Little AM-PAC Inpatient Daily Activity Raw Score: 13 AM-PAC Inpatient ADL T-Scale Score : 32.03 ADL Inpatient CMS 0-100% Score: 63.03 ADL Inpatient CMS G-Code Modifier : CL AM-PAC Score AM-PAC Inpatient Daily Activity Raw Score: 13 (06/24/211453) AM-PAC Inpatient ADL T-Scale Score : 32.03 (06/24/211453) ADL Inpatient CMS 0-100% Score: 63.03 (06/24/214) ADL Inpatient CMS G-Code Modifier : CL [...] [facility]. This provider wore an N95, [...] to let us know. * Tracy Hunter, 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 - 06/24/2021 11:00 AM EDT Speech Language Pathology Facility/Department: [address] Dysphagia Treatment Note NAME: Jesusita England : [...] small sips, and respiratory breaks as needed. 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 will continue to follow with dysphagia plan [...] as able during this stay. * Monae Martinez, DO - 06/24/2021 7:44 AM EDT Images from the original note were not included. Med Team Progress Note Jesusita England : 1970(51 y.o.) Date: June 24, 2021 Med Team: C Attending: Dr. Sellers Chief Complaint: SOB Subjective: [...] Q8H Continuous Infusions: dextrose 100 mL/hr (06/22/21 2018) sodium chloride 25 mL (06/16/21 1837) PRN meds used in last 24hrs: Acetaminophen [...] UTI s/p Cefepime Tx) - replaced urethral smith with urethral Pure Wick external cath Rising Alk Phos - 78--> 101 --> 149 -> 127 (06/22) -> 116 (06/23)-> 112 (06/24) - continues to downtrend, monitor Dysphagia/ Post extubation dysphagia - Recommend patient resume minced and moist diet with thin liquids. 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 will continue to follow with dysphagia plan [...] patient very motivated to get better. Pager: [phone] I spent over 51% total time of 27 minutes counseling (or coordinating care). Discussed current planof care with patient. Coordinated care with resident team. Also d/w TCC regarding discharge plans and helping coordinate PT/OT * Kyung Wong DO - 06/23/2021 7:01 AM EDT Images [...] Wick in place since removal of urethral smith cath. Left foot hanging off bed. Doesn't [...] Q8H Continuous Infusions: dextrose 100 mL/hr (06/22/21 0464) sodium chloride 25 mL (06/16/21 0928) PRN meds used in last 24hrs: dextrose [...] for patient to do IP Rehab at [place] (where sister works as a nurse). PT discharge recomm on 06/20 to LTACH. LTACH refused. Looking into [place].. -work with PT - once able to [...] PanSn UTI s/p Cefepime Tx) -replaced urethral smith with urethral Pure Wick external cath Rising Alk Phos - 78--> 101 --> 149 -> 127 (06/22) -> 116 (06/23) continues to downtrend Dysphagia/ Post extubation dysphagia -Recommend patient resume minced and moist diet with thin liquids. 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 will continue to follow withdysphagia plan of [...] EDT I have discussed the care of Jesuista England with the medical student and/or resident. [...] nausea, and diarrhea. - monitor Cr Pager: [phone] I spent over 51% total time of 44 minutes counseling (or coordinating care). Discussed current planof care with patient. Coordinated care with resident team. Also discussed with sister as per above. * Carrie Cardenas - 06/22/2021 12:59 PM EDT [facility] Respiratory Care Department [...] were not included. Med Team Progress Note Jessuita England : 1970(51 y.o.) Date: June 22, 2021 Med Team: Jennifer Attending: Dr. Sellers Chief Complaint: shortness of breath Subjective: - No acute events overnight. - Currently, laying in bed doing well. 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 saw her yesterday and advanced her diet. [...] for patient to do IP Rehab at [place] (where sister works as a nurse). -work [...] PanSn UTI s/p Cefepime Tx) -replacing urethral smith Rising Alk Phos - 78--> 101 --> 149. No trending down 127 (06/22) Dysphagia/ Post extubation dysphagia -Recommend patient resume minced and moist diet with thin liquids. 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 will continue to follow withdysphagia plan of [...] Hominis BSI - need PT/OT - pull smith given CAUTI on 06/16/21 - patient still with smith in from admission 06/03/21 per LDA documentation [...] IP Rehab in out of town (? [place]) - she is hoping patient will qualify for IP Rehab for discharge to her facility. Pager: [phone] I spent over 51% total time of [...] the care of this patient, * Carley Cortes, 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 - 06/21/2021 3:00 PM EDT Speech Language Pathology Facility/Department: [facility] Dysphagia Treatment Note NAME: Jesusita England [...] small sips, and respiratory breaks as needed. 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 will continue to follow with dysphagia plan of care to ensure patient tolerance with diet advancements prior to signing off. Should patient continue to reveal limited improvements with vocal quality, may consider ENT consult for further evaluation. Time In: 1415 Total Session Time: 20 minutes A surgical mask and gloves were worn throughout this session. Electronically signed by Carley Cortes MS, CCC/SLPon 06/21/2021 at 3:01 PM * Eladia Scanlon MD - 06/21/2021 2:13 PM EDT Images from the original note were not included. [facility] - Infectious Diseases Attending Progress Note [...] PROCAL -- 0.10* -- -- Recent Labs 06/19/21 0252 06/20/21 0403 06/21/21 0250 WBC 12.0* 11.9* 12.2* HGB 10.8* 10.4* 10.2* HCT 34.9* 32.9* 32.0* PLT 108* 112* 125* GRANULOCYTES 86.5* 82.9* 82.1* LYMPHOPCT 5.0* 7.0* 6.4* MONOPCT 7.9 7.7 9.4 LABEOS 0.6* 2.3 1.8 BASOPCT 0.0 0.1 0.3 NEUTROABS 10.4* 9.8* 10.0* Micro: Bcx 06/19 NG Resp cx 06/19 few MSSA Ucx 06/16 >100k E.coli Bcx 06/15 staph hominis 2/2 Resp cx 06/15 mod MRSA 06/12- blood cx- NGTD 06/12- pneumonia PCR panel- negative 06/12- resp cx- in process (stain with GPC pairs/ chains and yeast) 06/08- resp cx- C albicans 06/04- resp cx- rare resp pretty 06/04- pneumonia PCR panel- negative 06/04- Legionella urine Ag- negative 06/04- Strep pneumo urine Ag- negative 7/5- blood cx- negative Quantiferon- negative HIV screen- negative HBsAb- negative HBcAb total- negative HCV Ab- negative IL-6 level- 54.6 OSH: 06/02- COVID PCR + 06/02- Staph aureus PCR- + MSSA Radiography/Echo/Other: OSH: CTA chest- suboptimal to r/o PE; + infiltrates. Impression: 1. COVID-19 pneumonia with acute hypoxic respiratory failure - dx 06/02 in [facility] - sx onset 1 week prior [...] regarding COVID. Eladia Scanlon MD * Rubin Rm OT - 06/21/2021 10:31 AM EDT Occupational Therapy Att this AM, with RT. * Kyung Wong DO - 06/21/2021 7:36 AM EDT Images from the original note were not included. Med Team Progress Note Jesusita England : 1970(51 y.o.) Date: June 21, 2021 Med Team: Jennifer Attending: Dr. Sellers Chief Complaint: Shortness of breath Subjective: - No acute events overnight. - Currently, doing well. Having some dysphagia with minced food. Improved shortness of breath. Currently on 6 L high flow o2. Dysphagia c/f potential aspiration but 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 following and assessing dysphagia. Review of Systems [...] Assessment and Plan: Acute hypoxic resp failure 2/2 COVID 19 [...] minced and moist diet with thin liquids. 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 will continue to follow withdysphagia plan of [...] minced and moist diet with thin liquids. 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 will continue to follow withdysphagia plan of [...] highlights or additions in Green. Patient to [facility] today from ICU. Today is my first [...] s/p Cefepime Tx - still with original smith in from hospital admission on 06/03/21 - remove voley today) 5. Sepsis 2/2 above - resolved 6. Rising Alk Phos - last 3 days: 78--> 101 --> 149. May need RUQ imaging if continues to rise. Remainder per residents note Pager: [phone] I spent over 51% total time of 49 minutes counseling (or coordinating care). Discussed current planof care with patient. Coordinated care with resident team. * Gisel Saleh RN - 06/21/2021 12:07 AM EDT Pt transferred to [facility]. Belongings with patient. Family notified prior to leaving from visiting. RN at bedside when transferred. * Eladia Scanlon MD - 06/20/2021 10:17 PM EDT Images from the original note were not included. [facility] - Infectious Diseases Attending [...] >100k E.coli Bcx 06/15 coag neg staph / Resp cx 06/15 mod MRSA 06/12- blood [...] hypoxic respiratory failure - dx 06/02 in [facility] - sx onset 1 week prior [...] Care Encounter - full code - sisterMaggie ([phone]), who is RN, is primary point of [...] needs after this visit, anticipate transfer to [facility] and then transition to out rehabilitation [...] at home until she was admitted to [facility] in [place]. She recevied treatment there, as noted by ID, for COVID and found to have MSSAby nasal swab. For insurance reasons, she was transferred to [facility] and was intubated. She is now intubated, [...] no myoclonus Psychiatric: not anxious or agitated Wind[place] Symptom Assessment Score [place] Score Pain Score 0 Tiredness Score 3 [...] Lopez MD - 06/20/2021 6:07 PM EDT [facility] Palliative Care Transitions of Care Note [...] at home until she was admitted to [facility] in [place]. She recevied treatment there, as noted by ID, for COVID and found to have MSSA by nasal swab. For insurance reasons, she was transferred to [facility] and was intubated 06/03. She is now [...] with PCP Opiate Prescribing N/a * Michelle Coelho DO - 06/20/2021 3:02 PM EDT ICU Liberation [...] None (06/06/21 08) Relative Contraindications present?: None (06/06/21 08) Contacted Provider About Relative Contraindications?v: Yes (No [...] patient does not have a central line Smith Indication: Strict/Hourly I&O Does patient have a [...] 11:31 AM EDT Speech Language Pathology Facility/Department: [facility] ICU T3 Dysphagia Treatment Note NAME: Jesusita [...] pain. Patient agreeable to minimal trials with 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. O: Assess diet tolerance A: Patient accepted [...] respiratory rate throughout PO intake this date. 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 offered patient upgrade trials; patient politely declined. [...] minced and moist diet with thin liquids. 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 will continue to follow with dysphagia plan of care, and will assess with upgrade trials as patient is able. Time In: 1005 Total session time: 15 minutes A surgical mask and gloves were worn throughout this session. * SucrhonaPromise kwong ArnulfoEmma, PT - 06/20/2021 10:21 AM EDT Physical Therapy Facility/Department: [facility] ICU T3 Initial Assessment NAME: Jesusita England [...] Ambulation Assistance: Independent Transfer Assistance: Independent Active Crop And Soil Technician: Yes Type of occupation: works at [employer] Additional Comments: Pt ambulates with rollator walker. Spouse was also diagnosed with COVID-recovered. Cognition Cognition Overall Cognitive Status: WFL Objective Observation/Palpation Posture: Fair Observation: pressure ulcer [...] LLE Tone: Normotonic Motor Control Gross Motor?: WFL Sensation Overall Sensation Status: WFL Bed mobility Rolling to Left: Moderate assistance;2 [...] place: No G-Code OutComes Score AM-PAC Score AM-PAC Inpatient Mobility Raw Score : 6 (06/20/21 1021) AM-PAC Inpatient T-Scale Score : 23.55 (06/20/21 1021) Mobility Inpatient CMS 0-100% Score: 100 (06/20/21 1021) Mobility Inpatient CMS G-Code Modifier : CN (06/20/21 1021) Goals Short term goals Time Frame for [...] Plan of Care supervision is transferred to [facility] Physical Therapist. Therapy Time Individual Concurrent Group Co-treatment Time In 09 Time Out 0948 Minutes 38 Timed Code Treatment Minutes: 23 Minutes (FAx2) Promise Davis PT * Michelle Coelho DO - 06/20/2021 7:49 AM EDT Images [...] Conjunctiva []Injected [x]Non-Injected Pinnae []Normal []Other Dentitian [][place] Teeth []Dentures Oral Mucosa [x][place] []Moist []Dry Oral ETT []Present [x]Absent Neck: [...] [x]Absent STEELE ([x]RUE [x]RLE [x]LUE [x]LLE) Neurologic: [facility] [place] []Yes [x]No Corneal reflexes []Present []Absent Plantar reflexes []Up []Down []Absent Withdraws to tactile []Yes []No Follows Commands [x]Yes []No []Unresponsive to verbal []Cranial nerves grossly intact [x]Sensation grossly intact Psych: Alert [x]yes []no Oriented []x0 []x1 []x2 []x3 Affect [x]Normal []Flat []Agitated []Anxious []Calm []Sedated []NAD [facility] within last 72 hours BMP: Recent Labs 06/18/21 0002 06/19/21 0252 06/20/21 0403 NA 140 142 135 K 3.3* 3.1* 3.3* CL 104 104 101 CO2 31* 33* 31* BUN 59* 47* 37* CREATININE 0.71 0.65 0.49* CALCIUM 8.3* 8.4 8.3* MG 2.3 2.5* 2.1 PHOS 3.4 2.5 3.0 LFTS: Recent Labs 06/18/21 0002 06/19/21 0252 06/20/21 0403 AST 32 34 52* ALT 86* [...] 06/18/21 0619 06/19/21 0246 PHART 7.503* 7.517* [id number] 41.5 41.3 PO2ART 73.2* 53.7* FVM4LHI 31.9* 32.7* [id number] 93.9* 87.9* FIO2A 50% 30% Lactic Acid: [...] of the patient. I agree with Dr. Coelho' assessment, and we discussed the management of the patient. See orders. Unlabored. On 5LNC. No thrush. Up to chair earlier today. Continue bowel regimen. Ok for floor. * Eladia Scanlon MD - 06/19/2021 10:42 PM EDT Images from the original note were not included. [facility] - Infectious Diseases Attending Progress Note [...] Recent Labs 06/17/21 0003 06/18/21 0002 06/19/21 025 WBC 12.0* 11.1* 12.0* HGB 11.3* 10.9* [...] Recent Labs 06/17/21 0003 06/18/21 0002 06/19/21 025 CRP 7.8* 20.6* 204.0* Recent Labs 06/17/21 [...] hypoxic respiratory failure - dx 06/02 in [facility] - sx onset 1 week prior [...] a Minced and Moist Diet/Thin Liquids per 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 recommendations. Pt has not yet had a [...] extubated yesterday(after 2 weeks on the vent) YOLANDA feels that extensive education is not appropriate [...] out of COVID isolation as well as ofyester, 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 completed assessment this morning with minced and [...] discussed with pt current diet order per 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 recommendations and need for softer foods due [...] not yet had a solid meal but 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 cleared for minced and moist today, pt weight trending down during admit, could potentially be fluid related vs EN not exceeding her needs, no physical signs) Nutrition Related Findings: [place] = 13, right buttocks stage 2, -I/O, hypoactive bowel sounds, BM 7/8- last documented, generalized +1 non-pitting and BLE +2 pitting edema Wounds: Pressure Injury, Stage II Current Nutrition Therapies: ADULT DIET; Dysphagia - Minced and Moist Anthropometric Measures: Height: 5' 5 (165.1 cm) Current Body Weight: 409 lb 6.3 oz (185.7 kg) (06/19) Admission Body Weight: 418 lb (189.6 kg) (no method 06/03) Usual Body Weight: 418 lb (189.6 kg) (05/31/20 per EPIC) [place] Body Weight: 125 lbs; % [place] Body Weight 327.5 % BMI: 68.1 Adjusted [...] Planning: Too soon to determine Contact: pager [phone] or PerfectServe * Elijah Allred MD - [...] O2 Device: Heated high flow cannula (06/19/21 08) Spontaneous Awakening Trial: Spontaneous Awakening Trial (SAT) [...] and Sedation RASS Score: Alert and calm (06/19/21799) Sedation Goal: RASS: -1 to 1 Current Medications: Dexmedetomidine and N/A Restraint Order Placed During Rounds?: Yes D: Delirium & Diet Assess CAM-ICU Score: Negative (06/19/21799) Manage Is CAM-ICU Positive?: No Diet Diet [...] infusions/medications at high risk of causing extravasation Smith Indication: Strict/Hourly I&O Does patient have a [...] Prophylaxis: Proton pump inhibitor (PPI) * Carley Cortes, 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 - 06/19/2021 10:14 AM EDT Speech Language Pathology Facility/Department: [facility] ICU T3 CLINICAL BEDSIDE SWALLOW EVALUATION NAME: [...] Score: FLACC (activity): 1 Reason for Referral Jesusiat England was referred for a bedside swallow [...] upright and utilizing small bites and sips. 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 will initiate a dysphagia plan of care and continue to follow. Treatment Plan Requires 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 Intervention: Yes Duration/Frequency of Treatment: 3x/week for [...] aspiration;The patient will tolerate regular consistency solids 09/08. General Chart Reviewed: Yes Behavior/Cognition: Alert;Cooperative;Pleasant mood [...] Call light within reach;Nurse notified Therapy Time 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 Individual Minutes Time In: 904 Time Out: 924 Minutes: 20 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 Total Treatment Time Total Treatment Time: 20 A surgical mask and gloves were worn throughout this session. Carley Cortes MS, CCC/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 06/19/2021 10:14 AM * Elijah Allred MD [...] PNA, [facility], [facility] s/p remdesevir/toci/decadron and with [...] extubated satting mid 90s on 65% FiO2 [facility]. She is comfortable & conversational. No acute [...] PULSE OXIMETRY: SpO2: 91 % I/O: 06/18 0701 - 06/19 0700 In: 9.3 [I.V.:9.3] Out: 2350 [Urine:2350] Ventilator Settings: Vent Mode: [...] Conjunctiva []Injected []Non-Injected Pinnae []Normal []Other Dentitian [][place]eth []Dentures Oral Mucosa [][place] []Moist []Dry Oral ETT [x]Present []Absent Neck: [...] []Absent STEELE ([]RUE []RLE []LUE []LLE) Neurologic: [place] []Yes []No Corneal reflexes []Present []Absent Plantar [...] Recent Labs 06/17/21 0003 06/18/21 0002 06/19/21 025 AST 55* 32 34 ALT 102* 86* 64* PROT 6.4 6.1* 6.2* LABALBU 3.3* 3.1* 3.0* BILITOT 0.7 0.6 1.0 ALKPHOS 87 78 78 Glucose: Recent Labs 06/17/21 0003 06/17/21 0007 06/17/21 1231 06/17/21 1847 06/18/21 0002 06/18/21 0009 06/18/21 0618 06/18/21 0928 06/18/21 1453 06/18/21 2027 06/19/21 0252 06/19/21 0259 GLUCOSE 258* -- -- -- 229* -- -- -- -- -- 136* -- POCGLU -- < > 268* 239* -- 205* 192* 196* 216* 163* -- 137* < > = values in this interval not displayed. CBC: Recent Labs 06/17/21206/18/21106/19/21251 WBC 12.0* 11.1* 12.0* HGB 11.3* 10.9* 10.8* HCT 36.3 34.3* 34.9* PLT 148 108* 108* MCV 74.0* 73.0* 74.7* RDW 21.7* 21.3* 22.0* ABGs: Recent Labs 06/18/21 0606/19/21 0246 PHART 7.503* 7.517* UOG1NCO 41.5 41.3 PO2ART 73.2* 53.7* FML2RES 31.9* 32.7* U1PXKWQM 93.9* 87.9* FIO2A 50% 30% Lactic Acid: [...] concurrent asymptomatic UTI - fever 103.7 on (7/17) which responded well to tylenol/cooling and has [...] No organomegaly, no cyanosis. No clubbing. No [place]. Continue lasix. Taper off precedex. Remove lines. Abx per ID recs. * Eladia Scanlon MD - 06/18/2021 11:10 PM EDT Images from the original note were not included. [facility] - Infectious Diseases Attending Progress Note Subjective: On high flow Antimicrobials,Start/End Dates: Cefepime 06/16- Linezolid 06/16- Prior: Remdesivir (06/02; 06/04-06/07) OSH: Solumedrol Remdesivir 200mg IV x1 (06/02) Levaquin Vitals: Patient Vitals for the past 24 hrs: BP Temp Temp src Pulse Resp SpO2 Weight 06/18/21 2200 101/61 62 28 (!) 89 % 21 2100 (!) 101/58 63 (!) 31 (!) 89 % 06/18/21 2000 102/67 98.7 F (37.1 C) Temporal 66 16 (!) 85 % 06/18/21 1900 114/71 58 24 94 % 07/20/21 1800 113/61 64 21 96 % 07/20/21 1737 20 98 % 07/20/21 1700 119/73 70 13 99 % 07/20/21 1600 60 25 99 % 07/20/21 1522 20 100 % 07/20/21 1500 60 23 98 % 07/20/21 1402 17 99 % 07/20/21 1400 63 18 99 % 07/20/21 1300 72 18 98 % 07/20/21 1200 66 14 94 % 07/20/21 1143 61 18 07/20/21 1100 70 21 94 % 07/20/21 1000 78 21 (!) 86 % 07/20/21 0900 68 18 96 % 07/20/21 0841 55 21 97 % 07/20/21 0800 99.1 F (37.3 C) 54 24 97 % 07/20/21 0600 54 25 96 % 07/20/21 0551 53 96 % 07/20/21 0500 60 25 99 % (!) 414 [...] to preserve PPE for other caregivers, a slur-at-ubzi encounter with the patient was not performed. [...] hypoxic respiratory failure - dx 06/02 in [facility] - sx onset 1 week prior [...] Care Encounter - full code - sisterMaggie ([phone]), who is RN, is primary point of [...] on piece of paper, wrote the word supervisor blueprinting and photocopy and seemed very fearful. Reassured the patient [...] at home until she was admitted to [facility] in [place]. She recevied treatment there, as noted by ID, for COVID and found to have MSSAby nasal swab. For insurance reasons, she was transferred to [facility] and was intubated. She is now intubated, in the ICU, sedated. No family present -> also ill with COVID. Goals of care:Continue Current Management and To Be Determined Advance Directives: full code Surrogate: Spouse Prognosis: depends upon goals Spiritualassessment: No spiritual distress identified Bereavement and grief: To Be Determined Family Meeting: Participants: updated sister Maggie by phone Family meeting was held to [...] unable to assess orientation due to intubated [place] Symptom Assessment Score [place] Score Pain Score 0 Tiredness Score 5 [...] Harding RCP - 06/18/2021 11:45 AM EDT [facility] Respiratory Care Department Progress Note Spontaneous [...] Intracatheter Q8H Continuous Infusions: dexmedetomidine 0.4 mcg/kg/hr (06/18/21 0619) propofol 10 mcg/kg/min (06/18/21618) fentaNYL 150 mcg/hr (06/18/21 0315) [Held by provider] midazolam Stopped (06/12/21 154) dextrose sodium chloride 25 mL (06/16/21 0928) PRN meds used in last 24hrs: none Objective: VITALS: BP 133/70 Pulse 54 Temp 98.6 F (37 C) (Axillary) Resp 25 Ht 5' 5 (1.651 m) Wt (!) 414 lb 12.8 oz (188.2 kg) SpO2 96% BMI 69.03 kg/m CURRENT PULSE OXIMETRY: SpO2: 96 % I/O: 06/17 07 - 06/18 0700 In: 3459.2 [I.V.:2111.2] Out: 3270 [Urine:3270] Ventilator [...] Conjunctiva []Injected []Non-Injected Pinnae []Normal []Other Dentitian [][place]eth []Dentures Oral Mucosa [][place] []Moist []Dry Oral ETT [x]Present []Absent Neck: [...] []Absent STEELE ([]RUE []RLE []LUE []LLE) Neurologic: [place] []Yes []No Corneal reflexes []Present []Absent Plantar reflexes []Up []Down []Absent Withdraws to tactile [x]Yes []No Follows Commands [x]Yes []No []Unresponsive to verbal []Cranial nerves grossly intact []Sensation grossly intact Psych: Alert [x]yes []no Oriented []x0 []x1 []x2 []x3 Affect []Normal []Flat []Agitated []Anxious []Calm [x]Sedated []NAD Select Labs within last 72 hours BMP: Recent Labs 06/15/21230706/15/21230706/16/21 1422 06/17/21206/18/21 0002 NA 145 < > 144 142 [...] this interval not displayed. LFTS: Recent Labs 06/15/21230706/17/21 0003 06/18/21 0002 AST 110* 55* 32 ALT 133* [...] CBC: Recent Labs 06/17/21 0003 06/18/21 0002 WBC 12.0* 11.1* HGB 11.3* 10.9* HCT 36.3 34.3* PLT 148 108* MCV 74.0* 73.0* RDW 21.7* 21.3* ABGs: Recent Labs 06/15/21 2321 06/18/21 0619 PHART 7.489* 7.503* [id number] 42.5 41.5 PO2ART 84.9 73.2* YZV8UVV 31.6* 31.9* G8PMDYHY 95.6 93.9* FIO2A No data 50% Lactic [...] H2O (06/18/21 0551) Rate Measured: 24 br/min (06/18/21599) Pulse: 54 (06/18/21599) SpO2: 96 % (06/18/21599) Spontaneous VT: 442 mL (06/05/21 1731) Is [...] infusions/medications at high risk of causing extravasation Smith Indication: Strict/Hourly I&O Does patient have a PIV in addition to a central line?: Yes - PIV must remain in due to need for additional access Wound Care and Prevention Wound 06/09/21 Buttocks Right Stage II-Wound Etiology: Pressure Stage 2 (06/17/211999) Wound: NA - patient does not have wound(s) Zelalem Score: Zelalem Scale Score: 13 (06/17/218) Wound Care and Prevention: NA - patient [...] from the original note were not included. [facility] - Infectious Diseases Attending Progress Note [...] to preserve PPE for other caregivers, a dhdx-qt-vvgr encounter with the patient was not performed. That being said, all relevant records and diagnostic tests were reviewed, including laboratory results and imaging. Please reference any relevant documentation elsewhere. Care will be coordinated with the primary service. Labs: Recent Labs 06/15/21 01006/15/21 01006/15/21 2308 06/16/21 0915 06/16/21 1422 06/17/21 0003 [...] in this interval not displayed. Recent Labs 06/15/2110006/17/21 0003 WBC 14.4* 12.0* HGB 12.4 11.3* [...] Staph aureus PCR- + MSSA Recent Labs 06/15/21 0101 06/15/21 2308 06/17/21 0003 CRP 7.0* 7.8* 7.8* Recent Labs 06/15/21 0101 06/15/218 06/17/21 0003 DDIMER 25.22* 23.52* 13.33* Recent Labs 06/15/21 0101 06/15/21 2308 06/17/21 0003 FERRITIN 123 291* 209 Recent Labs 06/15/21 0101 06/15/21230706/17/21 0003 LDH 446* 446* 374* Lines: RIJ [...] hypoxic respiratory failure - dx 06/02 in [facility] - sx onset 1 week prior [...] Conjunctiva []Injected []Non-Injected Pinnae []Normal []Other Dentitian [][place] []Dentures Oral Mucosa [][place] []Moist []Dry Oral ETT [x]Present []Absent Neck: [...] []Absent STEELE ([]RUE []RLE []LUE []LLE) Neurologic: [place] []Yes []No Corneal reflexes []Present []Absent Plantar reflexes []Up []Down []Absent Withdraws to tactile [x]Yes []No Follows Commands [x]Yes []No []Unresponsive to verbal []Cranial nerves grossly intact []Sensation grossly intact Psych: Alert [x]yes []no Oriented []x0 []x1 []x2 []x3 Affect []Normal []Flat []Agitated []Anxious []Calm [x]Sedated []NAD Select Labs within last 72 hours BMP: Recent Labs 06/14/21 0038 06/14/21 0500 06/15/21 0101 06/15/21 2308 06/16/21 1422 NA 148* < > 146* 145 [...] this interval not displayed. LFTS: Recent Labs 06/14/21 00306/15/2110006/15/212307 AST 44 61* 110* ALT 61* 68* [...] 21.4* 21.8* ABGs: Recent Labs 06/14/21 0038 06/15/2110006/15/212320 PHART 7.501* 7.518* 7.489* VAB0UAR 41.9 41.8 42.5 PO2ART 83.7 68.3* 84.9 GJC9NMY 32.0* 33.2* 31.6* Z5MJENUW 95.6 92.8* 95.6 FIO2A No data No [...] last ABG: [7.49 / 43 / / 31] [...] Trials (SBT/SAT) Airway support: O2 Device: Ventilator (06/17/21 0929) Spontaneous Awakening Trial: Spontaneous Awakening Trial (SAT) RN Doc Absolute Contraindications present?: None (06/06/21 08) Relative Contraindications present?: None (06/06/21799) Contacted Provider About Relative Contraindications?v: Yes (No sedation vacation d/t high vent settings per Dr. Hector) (06/06/21799) Did patient fail SAT?: Yes (06/06/21799) Reasons patient failed SAT: Other (comment) (high vent settings) (06/06/21 0800) RT Notified ready for SBT?: Patient failed SAT (06/04/21 07) Spontaneous Breathing Trial: Spontaneous Breathing Trial (SBT) RT Doc Contraindications to SBT?: FiO2 > 50%;PEEP > 10 cm H2O;SpO2 < goal;Failed SAT (06/16/21 0714) Rate Measured: 26 br/min (06/17/21928) Pulse: 72 (06/17/21928) SpO2: 100 % (06/17/21928) Spontaneous VT: 442 mL (06/05/21 173) Is patient ventilated?: Yes. HOB up 30-45 [...] infusions/medications at high risk of causing extravasation Smith Indication: Strict/Hourly I&O Does patient have a [...] from the original note were not included. [facility] - Infectious Diseases Attending Progress Note [...] to preserve PPE for other caregivers, a osgd-yj-whpl encounter with the patient was not performed. [...] hypoxic respiratory failure - dx 06/02 in [facility] - sx onset 1 week prior [...] PULSE OXIMETRY: SpO2: 93 % I/O: 06/15 701 - 06/16 700 In: 1692 [I.V.:626] Out: 184 [Urine:1845] Ventilator Settings: Vent Mode: AC/VC+ Rate [...] Conjunctiva []Injected []Non-Injected Pinnae []Normal []Other Dentitian [][place]eth []Dentures Oral Mucosa [][place] []Moist []Dry Oral ETT [x]Present []Absent Neck: [...] []Absent STEELE ([]RUE []RLE []LUE []LLE) Neurologic: [place] []Yes []No Corneal reflexes []Present []Absent Plantar reflexes []Up []Down []Absent Withdraws to tactile [x]Yes []No Follows Commands [x]Yes []No []Unresponsive to verbal []Cranial nerves grossly intact []Sensation grossly intact Psych: Alert [x]yes []no Oriented []x0 []x1 []x2 []x3 Affect []Normal []Flat []Agitated []Anxious []Calm [x]Sedated []NAD Select Labs within last 72 hours BMP: Recent Labs 06/14/213706/14/213706/14/21 0500 06/15/2110006/15/212307 NA 148* < > 148* 146* 145 [...] not displayed. CBC: Recent Labs 06/14/21 0038 06/15/21 010 WBC 12.3* 14.4* HGB 12.0 12.4 HCT 38.3 39.6 PLT 229 209 MCV 71.7* 73.1* RDW 21.4* 21.8* ABGs: Recent Labs 06/14/21 0038 06/15/21 0101 06/15/21 2321 PHART 7.501* 7.518* 7.489* VQH0VXH 41.9 41.8 42.5 PO2ART 83.7 68.3* 84.9 XCC2ZAB 32.0* 33.2* 31.6* I9XNOOIO 95.6 92.8* 95.6 FIO2A No data No [...] - Last ABG: [7.49 / 43 / 85 / 31] - meds: decadron 6mg daily [...] plan: f/u brooke cultures, MRSA PCR panel, LA. jakob Hypernatremia - improving - Net negative 4L [...] See [x]progress note []H&P []Consult documented by [x]housekeeping department worker []IDALIA which reflects my hpi, pmh, psh, ros, fh, sh as well with my additions, as I discussed with the [x]housekeeping department worker []IDALIA. For my exam, assessment and [...] []Injected []Non-Injected / Pinnae []Normal []Other/ Dentitian [][place] Teeth []No [place] Teeth []Dentures Oral Mucosa [][place] []Moist []Dry/ Oral ETT []Present []Absent Neck: [...] [x]Absent/ STEELE ([x]RUE [x]RLE [x]LUE [x]LLE) Neurologic: [place] []Yes [x]No Corneal reflexes []Present []Absent / [...] lab draws (at least every 6 hours) Smith Indication: Strict/Hourly I&O Does patient have a [...] None (06/06/21 08) Relative Contraindications present?: None (06/06/21 08) Contacted Provider About Relative Contraindications?v: Yes (No sedation vacation d/t high vent settings per Dr. Hector) (06/06/21 08) Did patient fail SAT?: Yes (06/06/21 08) Reasons patient failed SAT: Other (comment) (high vent settings) (06/06/21 08) RT Notified ready for SBT?: Patient failed SAT (06/04/21 07) Spontaneous Breathing Trial: Spontaneous Breathing Trial (SBT) RT Doc Contraindications to SBT?: FiO2 > 50% (06/15/21 0600) Rate Measured: 24 br/min (06/15/21 1245) Pulse: [...] infusions/medications at high risk of causing extravasation Smith Indication: Obstruction or recent urologic surgery Does [...] Prophylaxis: Proton pump inhibitor (PPI) * Merari Lara [facility] - 06/15/2021 10:03 AM EDT Sputum sample [...] 150 mcg/hr (06/15/21 0543) midazolam Stopped (06/12/21 5182) dextrose sodium chloride PRN meds used in last 24hrs: none Objective: VITALS: BP 133/70 Pulse 84 Temp 98.5 F (36.9 C) (Axillary) Resp 27 Ht 5' 5 (1.651 m) Wt (!) 411 lb 3.2 oz (186.5 kg) SpO2 96% BMI 68.43 kg/m CURRENT PULSE OXIMETRY: SpO2: 96 % I/O: 06/14 0701 - 06/15 0700 In: 2802 [I.V.:867] Out: 3985 [Urine:3985] Ventilator [...] Conjunctiva []Injected []Non-Injected Pinnae []Normal []Other Dentitian [][place]eth []Dentures Oral Mucosa [][place] []Moist []Dry Oral ETT [x]Present []Absent Neck: [...] []Absent STEELE ([]RUE []RLE []LUE []LLE) Neurologic: [place] []Yes []No Corneal reflexes []Present []Absent Plantar [...] Recent Labs 06/13/21 0005 06/14/21 0038 06/15/21 0101 AST 36 44 61* ALT 62* 61* [...] not displayed. CBC: Recent Labs 06/13/21 0005 06/14/21 0038 06/15/21 0101 WBC 12.2* 12.3* 14.4* HGB 11.4* 12.0 12.4 HCT 36.4 38.3 39.6 PLT 243 229 209 MCV 71.4* 71.7* 73.1* RDW 21.1* 21.4* 21.8* ABGs: Recent Labs 06/13/21 1228 06/14/21 0038 06/15/21 0101 PHART 7.480* 7.501* 7.518* [id number] 43.4 41.9 41.8 PO2ART 63.5* 83.7 68.3* ZTS3URU 31.6* 32.0* 33.2* [id number] 92.1* 95.6 92.8* FIO2A No data No [...] See [x]progress note []H&P []Consult documented by [x]housekeeping department worker []IDALIA which reflects my hpi, pmh, psh, ros, fh, sh as well with my additions, as I discussed with the [x]housekeeping department worker []IDALIA. For my exam, assessment and [...] []Injected []Non-Injected / Pinnae [x]Normal []Other/ Dentitian [x][place] []No [place]eth []Dentures Oral Mucosa [x][place] []Moist []Dry/ Oral ETT [x]Present []Absent Neck: [...] [x]Absent/ STEELE ([x]RUE [x]RLE [x]LUE [x]LLE) Neurologic: [place] []Yes []No Corneal reflexes []Present []Absent / [...] Empowerment A: Analgesia Assess Pain Level: 0 (06/14/21 0400) Score CPOT (Vent): 1 (06/14/21 0800) Patient's Stated Pain Goal: No pain (06/13/21 0400) Prevent Acetaminophen, prn and Narcotic(s), prn: fentatnyl, morphine Manage Pain well controlled?: Yes B: BOTH Spontaneous Breathing and Spontaneous Awakening Trials (SBT/SAT) Airway support: O2 Device: Ventilator (06/14/21 1251) Spontaneous Awakening Trial: Spontaneous Awakening Trial (SAT) RN Doc Absolute Contraindications present?: None (06/06/21 08) Relative Contraindications present?: None (06/06/21 08) Contacted Provider About Relative Contraindications?v: Yes (No sedation vacation d/t high vent settings per Dr. Hetcor) (06/06/21 08) Did patient fail SAT?: Yes (06/06/21 08) Reasons patient failed SAT: Other (comment) (high vent settings) (06/06/21 08) RT Notified ready for SBT?: Patient failed SAT (06/04/21 07) Spontaneous Breathing Trial: Spontaneous Breathing Trial (SBT) RT Doc Contraindications to SBT?: None (06/14/21 0400) Rate Measured: 25 br/min (06/14/21 1300) [...] infusions/medications at high risk of causing extravasation Smith Indication: Obstruction or recent urologic surgery Does patient have a PIV in addition to a central line?: No. The patient does not have any PIVs Wound Care and Prevention Wound 06/09/21 Buttocks Right Stage II-Wound Etiology: Pressure Stage 2 (06/14/21 08) Wound: Hospital Acquired Zelalem Score: Zelalem Scale Score: 14 (06/14/21 0800) Wound Care and Prevention: NA - patient does not meet criteria Prophylaxis DVT Prophylaxis: Pharmacologic Prophylaxis: SQ enoxaparin (Lovenox) GI Prophylaxis: Proton pump inhibitor (PPI) * Miguel Ángel Bellamy RCP - 06/14/2021 10:02 AM EDT [facility] Respiratory Care Department Progress Note Spontaneous [...] from the original note were not included. [facility] - Infectious Diseases Attending Progress Note [...] Mental Status: She is alert. 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 Fina Desir MD * Tori Milton, RD, LD - 06/14/2021 7:33 AM EDT [...] promote healthy weight loss with texture/consistency per 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/MD recommendations. 2. Will continue to monitor tolerance [...] Anthropometric Measures: Height: 5 [facility] Work Phone: 1(436) 420-241208-04-2021 Hospital Discharge instructions* Discharge Instr - Diet* [...] at most local grocery stores, pharmacies, and sevenload-stores. If you have any questions about your [...] Agent's Name Healthcare Agent's Phone Number 06/03/21 3102 No, patient does not have an advance directive for healthcare treatment Admitting Physician: Ruth Soni DO PCP: No primary care provider on file. Discharging Nurse: audrey Discharging Hospital Unit/Room#: 1733/459199 Discharging Unit Emergency Contact: Extended Emergency Contact Information Primary Emergency Contact: Varun Sototamir Relation: Brother/Sister Secondary Emergency Contact: Adina England [...] be contained. Resolved Other 06/04/21 06/04/21 Theresa Argueta, RN 06/05/21 Fanta Escalera RN 06/04/2021 Pneumonia PCR panel ordered. Maintain Droplet Precautions until this test is negative or test is cancelled. COVID-19 06/02/21 06/04/21 06/04/21 Fanta Escalera RN 06/18/21 Fatna Escalera, RN Added from external infection. - 05/27/21 [facility] ([facility]) per ODRS/pw May discontinue isolation per [...] Assisted Dressing Assisted Toileting Dependent Feeding Independent Branch Library Clerk Independent Med Delivery whole Wound Care Documentation [...] Healing % 100 06/22/21 1000 Wound Assessment [place]/red 06/28/21 0845 Drainage Amount None 06/28/21 0845 [...] 06/28/21 0845 Wound Length (cm) 3.5 cm 06/20/212119 Wound Width (cm) 1.5 cm 06/20/212119 Wound Surface Area (cm^2) 5.25 cm^2 06/20/212119 Change in Wound Size % (l*w) 0 06/20/212119 Wound Assessment [place]/red 06/25/21 1130 Drainage Amount None 06/28/21 0845 [...] Readmission: 32 Discharging to Facility/ Agency Name: [facility] Address:[address] [place] [address] Dialysis Facility (if applicable) Name: Address: Dialysis Schedule: Phone: Fax: Grain Roaster/Business Reporting Developer signature: ICIAN SECTION Prognosis: Fair Condition at [...] the diagnosis listed and that she requires Custodial Facilityfor greater 30 days. Update Admission H&P: No change in H&P PHYSICIAN SIGNATURE: documented in this [facility] Work Phone: 1(575) 562-480607-05-2021 Miscellaneous Notes* Plan of Care - Nikia [...] 06/03/2021 12:05 PM EDT Patient discharged to [facility] via [facility]. Report given to Ja SUBRAMANIAN at [facility]. Patient belongings sent with her. Patient [...] - Assessment completed. Patient on BIPAP settings 14/8. Patient denies shortness of breath. Mostly tachypneic. In no apparent distress. Alert and oriented X 3. Follows commands and Jessica. Sinus rhythm per lunchroom monitor. Will continue to monitor. Please see flow sheets for details. documented in this [facility]07-05-2021 Hospital Discharge instructions* Discharge Instr - Activity* Flash De La Rosa PA-C - 06/03/2021 8:48 AM EDT aat * Discharge Instr - Diet* Flash De La Rosa PA-C - 06/03/2021 8:48 AM EDT aat documented in this [facility]07-05-2021 Hospital course Narrative* Flash De La Rosa PA-C - 06/03/2021 8:43 AM EDT Discharge Summary Summary Time: 06/03/21 8:49 AM Name: Jesusita England Age: 51 y.o. Birthday: 1970 Admit Date: 06/02/2021 10:38 AM Discharge Date: 06/03/2021 Brief Summary of Hospital Course: Patient is a 51 y.o. female presents to [facility] for evaluation of SOB. 51-year-old female [...] for the patient to be transferred to [place] in the emergency department. Transportation has now been arranged. Today the patient will be transferred per her request to [facility]. Consultants: N/A Discharge Diagnosis: Active Problems: [...] 1 scoop po qam Commonly known as: Karen For diagnoses: Functional diarrhea dexAMETHasone 6 MG [...] diet as tolerated. Discharge Follow-up: Transfer to [place] Discharge Disposition: Patient will be discharged in stable condition. Discharge Time: Including assessment, planning, and medication reconciliation was greater than 35 min. Flash De La Rosa PA-C completing Discharge Summary for Dr. Naranjo Please note portions of this note utilized [employer] software, please excuse any typographical or grammatical [...] and plan. DOS: Patient requested transfer to [facility] in [place]. She is SOB. Some cough. ROS: Ten systems reviewed, unless limited by patient' or care providers' inability or unavailability. Reported above or following. Assessment and additional plans: Hypoxic respiratory failure Severe Covid 19 with bilateral PNA/ARDS Obesity and MIGUEL Plan: BiPAP; O2; steroids; DVT prophylaxis; transfer to tertiary care hospital. Contact me if you need any clarification. Salomon Ballesteros MD [facility] History and physical note* Flash De La Rosa PA-C - 06/02/2021 5:02 PM EDT History and Physical Examination 06/02/21 5:03 PM Chief Complaint: Shortness of Breath History of Present Illness: Patient is a 51 y.o. female presents to [facility] for evaluation of SOB. 51-year-old female [...] Please note Portions of this note utilized [employer] dictation software, please excuse any typographical or grammatical errors [facility] Associated attestation - Guilherme Naranjo DO [...] and plan of care. documented in this [facility]07-04-2021 Procedure note* Al Stack APRN-CNP - 06/02/2021 4:50 PM EDT Associated Order(s): PROCEDURE - CENTRAL LINE WITH OR WITHOUT PAC INDICATION: Vascular Access / Critically Ill / Limited access PROCEDURE PRODUCTION SERVICE MANAGER: Nathen VICENTE ATTENDING PHYSICIAN: In Attendance [...] is less than 10ml. [facility] Emergency department Note* Nora Dominguez RN - 06/02/2021 3:47 PM EDT Sister Maggie Soto called at [phone] and updated that the pt has been transferred to the ICU room 3785. * Mary Anne Soto PCA - 06/02/2021 3:00 PM EDT Patient assigned to room #3785. * Mary Anne Soto PCA - 06/02/2021 2:04 PM EDT Called [facility] at this time, spoke with Maxim to advise that patient will be admitted toour facility for the time being because we are unable to arrange transport for her. * Mary Anne Soto PCA - 06/02/2021 1:[address] Naranjo called back at this time. * Mary Anne Soto PCA - 06/02/2021 1:44 PM EDT Kirsten with the [facility] transfer center called back at this time, patient assigned to room #T3, ICU, room 303. * Mary Anne Soto PCA - 06/02/2021 1:38 PM EDT [facility] called back at this time, Dr. Soni accepted for patient to go to ICU, waiting on a room assignment. * Mary Anne Soto PCA - 06/02/2021 1:13 PM EDT Called [facility] at this time, advised that patient is getting placed on Bi pap, they will call back with an ICU room assignment. * Kellen Yang RN - 06/02/2021 1:02 PM EDT C/O SOB. Dr. Krystle beal. Saturation 84%. RT called. * Mary Anne Soto PCA - 06/02/2021 12:58 PM EDT Called [facility] at this time to see if they have a transport crew available, they do notemploy a transport company. * Mary Anne Soto PCA - 06/02/2021 12:54 PM EDT [facility] do not have a bariatric cart, ALS crew, or is out of the service area. * Mary Anne Soto PCA - 06/02/2021 12:38 PM EDT Disc requested from radiology at this time. * Mary Anne Soto PCA - 06/02/2021 12:20 PM EDT [facility] called back at this time. * Nawaf Dalton MD - 06/02/2021 10:49 AM EDT Emergency Department Report [facility] EMERGENCY DEPARTMENT Service Date:.06/02/21 PCP: Alondra Rosenbegr Chief Complaint: Chief Complaint Patient presents with [...] a fever. She has been taking some jqkf-gqf-qhoyohwstyzq and cold medications. She states she has [...] Social Gatherings with Friends and Family: Attends Tenriism Services: Active Member of Clubs or Organizations: [...] Use Authorization (EUA) for the qualitative detection [id number] nucleic acid. CBC, EDIF, PLATELET Result Value [...] a sinus rhythm rate of 79 bpm. DE interval 150 ms. No STEMI. QRS duration [...] his CRP. Patient is requesting transfer to [facility]. I did speak to the [facility] banquet chef they have accepted the patient. Patient has [...] patient's size. I placed acall into the security public safety officer. I spoke with this patient. She will agree to stay at a [facility]. They willattempt to schedule a transport in the morning to [facility]. Nawaf Dalton MD 06/02/21 1410 * Nora Dominguez RN - 06/02/2021 10:39 AM EDT Bed: E004 Expected date: Expected time: Means of arrival: Comments: [facility] History of Present illness Narrative* Tori Jimenes RCP - 06/02/2021 1:25 PM EDT Patient placed on BIPAP by this PERSONNEL QUALITY ASSURANCE AUDITOR. 14/8 100%. Patient tolerating well, sats increasing to 94%. [facility] Rubin Hadley [facility] April 08, 2024 2:34pm Note Date/Time April 08, 2024 2:30p m [facility] Medical Records Department [address] [place] [address] Discharge Summary 04/08/24 1427 MR#: [id number] Acct: [id number] Name: JESUSITA ENGLAND Rep #:[id number] 1 : 1970 54 From: Rubin frost MD PCP: VJ Maloney Status:ADM IN Location: [facility] [place] SF309-3 Providers Date of Admission: 04/04/24 Primary Care [...] consult with Dr. Garcia who presents to [facility] ER complaining of bilateral lower extremity redness [...] the general medical floor for ongoing care [facility] that is expected to be greater than [...] recurrent issues. [facility] on cefdinir 300 mg [...] Provider: Rubin Hadley Primary Care Provider: Alondra Rosenberg Consulting Providers: Cadleron Ojeda; Wander Garcia Discharge Orders/Prescriptions Prescriptions: New [...] x1 day Referrals / Follow Up: Alondra Rosenberg PA [Primary Care Provider] - Within 1 Week Disposition Disposition (needs filled in before D/C Order can be placed): Home, Self Care Charges/Coding Visit Charges Inpatient E&M: 65492 Disch Hosp >30min 04/08/24 1434 <Electronically signed by Rubin Hadley MD> Cosigner Signature (if applicable): CC: Dr. Rubin Hadley MD; VJ Maloney~ Signed [facility] Work Phone: Evaluation note* Diagnosis Exertional shortness of breath Shortness of breath [facility] Diagnosis Pneumonia due to 2019 novel [...] Thrombocytopenia Thrombocytopenia, unspecified [facility] Diagnosis Pneumonia due to COVID-19 virus- Primary Pressure injury of right buttock, stage 3 ([facility]) Palliative care encounter Encounter for palliative care COVID-19 Anxiety Anxiety state, unspecified Insomnia Insomnia, unspecified Constipation Unspecified constipation Gastroesophageal reflux disease without esophagitis Esophageal reflux Angular cheilitis Diseases of lips 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 MIRIAM (acute kidney injury) ([facility]) Acute kidney failure, unspecified Hyponatremia Hyposmolality and/or hyponatremia Poor intravenous access Other specified conditions influencing health status Obstructive sleep apnea syndrome Obstructive sleep apnea (adult) (pediatric) Body mass index (BMI) of 70 or greater in adult ([facility]) Body Mass Index 70 and over, adult Iron deficiency anemia due to chronic blood loss Iron deficiency anemia secondary to blood loss (chronic) Morbid obesity (HCC) Morbid obesity Ventilator associated pneumonia (HCC) Ventilator associated pneumonia Evin albicans infection Candidiasis of unspecified site MRSA pneumonia (HCC) Methicillin resistant pneumonia due to Staphylococcus aureus MSSA (methicillin susceptible Staphylococcus aureus) pneumonia (HCC) Methicillin susceptible pneumonia due to Staphylococcus aureus documented in this encounter [facility] Work Phone: Evaluation note* Diagnosis Muscle swelling Swelling of limb Nodule of soft tissue Localized superficial swelling, mass, or lump [facility] Diagnosis Onset Date Resolution Status Hypoxemia requiring supplemental oxygen acute Lymphedema associated with obesity acute MIGUEL (obstructive sleep apnea) chronic [facility] Work Phone: Evaluation noteNo assessment information available [facility] Work Phone: Evaluation note* Diagnosis Onset Date Resolution Status Cellulitis acute Failure of outpatient treatment acute Hyperglycemia acute Obesity acute [facility] Work Phone: Evaluation note* Diagnosis Onset Date Resolution Status Cellulitis acute Failure of outpatient treatment acute Hyperglycemia acute Lymphedema associated with obesity acute Obesity acute [facility] Work Phone: Evaluation note* Diagnosis Onset Date Resolution Status Cellulitis acute Lymphedema associated with obesity acute Cellulitis acute Lymphedema associated with obesity acute Sepsis acute [facility] Work Phone: Evaluation note* Diagnosis Morbid obesity (HCC)- Primary Morbid obesity Recurrent cellulitis of lower extremity Chronic acquired lymphedema Other noninfectious lymphedema documented [facility] this [facility] Diagnosis Onset Date Resolution Status Cellulitis acute Headache acute Lymphedema associated with obesity acute PLMD (periodic limb movement disorder) acute Super obesity acute [facility] Work Phone: Evaluation note* Diagnosis Positive LIZ (antinuclear antibody)- Primary Other and unspecified nonspecific immunological findings Arthralgia, unspecified joint CRP elevated Elevated C-reactive protein (CRP) Lymphedema Other noninfectious lymphedema Recurrent cellulitis [facility] Author Arthur Thompson [facility] August 18, 2023 12:50am Note Date/Time August 18, 2023 12:46am [facility] Medical Records Department [address] [place] [address] History & Physical Exam 08/18/23 0045 MR#: [id number] Acct: [id number] Name: JESUSITA ENGLAND Rep #:[id number] 2 : 1970 53 From: rAthur Thompson MD PCP: VJ Maloney Status:REG ER [...] July 31 and was sent home with Omnice after receiving Rocephin and patient. She has [...] admitted for further IV antibiotics and fluid. 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 For lunch she [...] (Auto) 90.9 H, Lymph % (Auto) 3.2L, [place] % (Auto) 5.0, Eos % (Auto) 0.0, [...] 23:46 EDT Reading Location ID and State: [facility] / [place] Tel , Service support , Assessment & [...] weight heparin Charges/Coding Visit Charges Inpatient E&M: 13281 Init Hosp L2 08/18/23 0050 <Electronically signed by Arthur Thompson MD> Cosigner Signature (if applicable): CC: Dr. Arthur Thompson MD; VJ Maloney~ Signed [facility] Work Phone: History of Present illness Narrative* [...] Initial labs are noted as in progress. [facility] DO Work Phone: Hospital Discharge instructionsAdditional Instructions ADDITIONAL DISCHARGE INSTRUCTIONS/PLAN OF CARE: During the admission you were treated for bilateral lower extremity skin infection associated with significant swelling known as anasarca with antibiotic therapies initially IV eventually transitioned on your discharge to oral Levaquin with a stop date of 06/22/2025 in addition to IV Lasix utilized and IV drip form in addition with notable weight loss and improvement of lower extremity swelling. We have started you on oral Lasix at discharge but please continue to monitor blood pressure and if your systolic blood pressure is < 110 please hold. We would also like you to have a repeat basic metabolic panel at follow-up with your primary care physician to make sure your labs are appropriate given this new medication. During the admission you also had noted growth of Pseudomonas however it was only on 1 of 2 blood cultures and this is sensitive to Levaquin to which you have also been discharged on which will treat both skin infection and this potential bloodstream infection. We strongly encourage that you elevate bilateral lower extremities above your heart when seated and in bed. We also strongly recommend continued efforts for weight loss and lifestyle changes. It would be beneficial to maintain bilateral lower extremity snug promise wraps starting at the toes to at least just below the knees, overlapping, no skin showing. It is vital that there be no skin showing to assist with keeping the fluid out of her lower extremities. It is important that there be no areas where the wrap is stuck in folds as fluid will primarily collect in those regions then. Outpatient your primary care physician can work to assist with possible compression stockings that need to be fitted. We have also placed a referral to the wound care center as they may assist in chronic lymphedema evaluation and treatment. [facility]: [facility]: [employer] for referral (narrative)No reason for referral information availableWUniversity [facility] Work Phone: Reejqc for visit Narrative* Evaluate and Treat (Routine) - Pending Review Specialty Diagnoses / Procedures Referred By Contac t Referred To Contact Rheumatology Diagnoses Arthralgia, unspecified joint Positive LIZ (antinuclear antibody) CRP elevated Provider, Generic Ems Yamile Jo, [address] [place] [id number] Phone: tel: fax: Referral ID Status Reason Start Date Expiration Date V isits Requested Visits Authorized [id number] Pending Review 06/29/2024 06/29/2025 1 1 [facility] Summary Purpose Family History No Family History Records Found Relationship Condition Age at Onset Recorded Date/T cornelio mother Alzheimer's dementia Unknown Unknown Family Member Name Dates Details Family history of obesity: Alexa boss Family Members(V18.19, Z83.49) Status:Active Family history of dementia: Multiple Family Members(V17.2, Z81.8) Status:Active Parkinson disease, symptomat ic: Multiple Family Members Status:Active Unknown Family Member Name Dates Details Family history of obesity: Alexa boss Family Members(V18.19, Z83.49) Status:Active Family history of dementia: Multiple Family Members(V17.2, Z81.8) Status:Active Parkinson disease, symptomat ic: Multiple Family Members Status:Active Advance Directives No Advanced Directives Records FoundLatest Code Status on File Code Status Date Activated Date Inactivated Comments Full Code 06/02/2021 3:44 PM Latest Code Status on File Code Status Date Activated Date Inactivated Comments Full Code 06/03/2021 4:28 PM Advance Directive Response Recorded Date/ Time Living Will No July 04, 2021 4:22pm Power of Dynamiter No July 04 4:22pm Advance Directive Response Recorded Date/ Time Living Will No July 08, 2023 8:16am Power of Dynamiter No July 08 8:16am Advance Directive Response Recorded Date/ Time Name of Medical Power of Dynamiter ABHISHEK SOTO July 24, 2023 11:19pm Living Will No July 24 11:19pm Power of Dynamiter Yes July 24, 2 023 11:19pm Advance Directive Response Recorded Date/ Time Name of Medical Power of Dynamiter sister July 25, 2023 3:01am Living Will Yes July 25 3:01am Power of Dynamiter Yes July 25, 2 023 3:01am Advance Directive Response Recorded Date/ Time Name of Medical Power of Dynamiter sister July 25, 2023 3:01am Living Will No August 17, 2023 10:41pm Power of Dynamiter No July 10:41pm Advance Directive Response Recorded Date/ Time Name of Medical Power of Dynamiter sister July 25, 2023 3:01am Name of Medical Power of Dynamiter varungisellegaudencio bookerashleigh kunz August 18, 2023 1:42am Living Will Yes August 18, 2023 1:42am Power of Dynamiter Yes July 1:42am Living Will - Effective [...] April 04, 2024 9: 15pm Power of Dynamiter Yes April 04, 2024 9:15pm Name of Medical Power of Dynamiter sister April 04, 2024 9:15pm Living Will [...] Date/ Time Name of Medical Power of Dynamiter maggie kunz April 04, 2024 11:38pm Living Will Yes April 04, 2024 11 :38pm Power of Dynamiter Yes April 04, 2024 11:38pm Living Will [...] Effective:06-Aug-2023 Advance Directive Response Recorded Date/ Time Do you have a Healthcare Power of Dynamiter? Yes June 11, 2025 12:18am Name of Medical Power of Dynamiter sister janusz mas June 11, 2025 12:18am Living Will - Effective on . Expiration date unspecified. Scanned Document is available upon request. Effective:06-Aug-2023 Living Will - Effective on . Expiration date unspecified. Scanned Document is available upon request. Effective:06-Aug-2023 Living Will - Effective on . Expiration date unspecified. Scanned Document is available upon request. Effective:06-Aug-2023 Advance Directive Response Recorded Date/ Time Do you have a Healthcare Power of Dynamiter? Yes June 11, 2025 5:58am Name of Medical Power of Dynamiter sister janusz mas June 11, 2025 5:58am Living Will - Effective on . Expiration [...] sent through Care Everywhere. * Flank Pain (Armenian) * Back: Strain (Armenian) documented in this encounter Assessments Diagnosis Flank pain Abdominal pain, unspecified site Reason for Referral Status Reason Specialty Diagnoses / Procedures Referred By Contact Referred To Contact Closed Cardiovascular Medicine Diagnoses Exertional shortness of breath Procedures ECHOCARDIOGRAM DE ECHO HEART XTHORACIC,COMPLETE W DOPPLER Alondra Rosenberg PA-C [address] [facility] [place] [address] Prabhakar Ont Echocardiograph y [address] [place] [address] Status Reason Specialty Diagnoses / Procedures Re ferred By Contact Referred To Contact New Request Procedures INPATIENT ADMISSION NOTIFICATION Guilherme Naranjo, DO [address] [place] [address] Status Reason Specialty Diagnoses / Procedures Referred By Contact Referred To Contact New Request Procedures ECG Nawaf Dalton MD [address] [place] [address] Status Reason Specialty Diagnoses / Procedures Referred By Contact Referred To Contact Open Specialty Services Required IP Unit Diagnoses Pressure injury of right buttock, stage 3 (HCC) Ach 5n Overflow [address] [place] [address] [address] [facility] [address] [place] [address] Scheduling Instructions [facility] [address] [place] [address] Specialty Diagnoses / Procedures Referred By Contac t Referred To Contact Ultrasound Diagnoses Muscle swelling Nodule of soft tissue Procedures US SOFT TISSUE Alondra Rosenberg PA-C [address] [facility] [place] [address] Prabhakar Ont Ultrasound [address] [place] [address] Referral ID Status Reason Start Date Expiration Date Visits Re quested Visits Authorized [id number] Closed 02/21/2022 03/18/2023 1 1 Chief Complaint [...] limb movement disorder) Super obesity Chief Complaint Admit Date RECURRENT LE CELLULITIS June 11, 2025 2:49am Reason for Visit Admit Date Lower extremity cellulitis June 11 2:49am Chief Complaint Admit Date RECURRENT LE CELLULITIS June 11, 2025 2:49am RECURRENT LE CELLULITIS June 12, 2025 8:03am RECURRENT LE CELLULITIS June 13, 2025 7:58am RECURRENT LE CELLULITIS June 14, 2025 8:17am RECURRENT LE CELLULITIS June 15, 2025 7:31am RECURRENT LE CELLULITIS June 16, 2025 10:07am Reason for Visit Admit Date Anasarca June 11, 2025 2:49 am Bacteremia June 11, 2025 2:49 am Lower extremity cellulitis June 11 2:49am Chief Complaint Admit Date RECURRENT LE CELLULITIS June 11, 2025 2:49am RECURRENT LE CELLULITIS June 12, 2025 8:03am RECURRENT LE CELLULITIS June 13, 2025 7:58am RECURRENT LE CELLULITIS June 14, 2025 8:17am RECURRENT LE CELLULITIS June 15, 2025 7:31am RECURRENT LE CELLULITIS June 16, 2025 10:07am RE-EST/PREV PFM PT August 01, 2025 10:56am Chief Complaint * The patient is being [...] section and content) DATE CREATED AUTHOR 05/20/2018 [facility] DATE CREATED AUTHOR AUTHOR'S ORGANIZ ATION 05/19/2021 [facility] DATE CREATED AUTHOR AUTHOR'S ORGANIZ ATION 08/12/2021 [facility] DATE CREATED AUTHOR AUTHOR'S ORGANIZ ATION 02/04/2023 [facility] DATE CREATED AUTHOR AUTHOR'S ORGANIZ ATION 09/08/2023 [facility] DATE CREATED AUTHOR AUTHOR'S ORGANIZ ATION 10/11/2023 [facility] DATE CREATED AUTHOR AUTHOR'S ORGANIZ ATION 11/21/2024 [facility] DATE CREATED AUTHOR AUTHOR'S ORGANIZ ATION 06/25/2025 [facility] DATE CREATED AUTHOR AUTHOR'S ORGANIZ ATION 07/02/2025 [facility] DATE CREATED AUTHOR AUTHOR'S ORGANIZ ATION 08/02/2025 [facility] Reason for Visit (unrecogniz ed section and content) Reason Comments Abdominal Pain x4 days left lower q uadrant, gallbadder removed, no pain medication helping, last BM today, pt passing gas Status Reason Specialty Diagnoses / Procedures Referred By Contact Referred To Contact Closed Cardiovascular Medicine Diagnoses Exertional shortness of breath Procedures ECHOCARDIOGRAM DE ECHO HEART XTHORACIC,COMPLETE W DOPPLER Alondra Rosenberg PA-C [address] [facility] [place] [address] Prabhakar Ont Echocardiograph y [address] [place] [address] Reason Comments COVID-19 per EMS, pt c/o covi d symptoms, cough and SOB. pt spouse (+) COVID Status Reason Specialty Diagnoses / Procedures Referre d By Contact Referred To Contact Reason Comments Specialty Diagnoses / Procedures Referred By Floryac t Referred To Contact Ultrasound Diagnoses Muscle swelling Nodule of soft tissue Procedures US SOFT TISSUE Alondra Rosenberg PA-C [address] [facility] [place] [address] Prabhakar Ont Ultrasound [address] [place] [address] Referral ID Status Reason Start Date Expiration Date Visits Re quested Visits Authorized [id number] Closed 02/21/2022 03/18/2023 1 1 Reason Comments Follow-up Recurrent cellulitis (est pt, new to Dr. Tavera) Specialty Diagnoses / Procedures Referred By Contac t Referred To Contact Infectious Diseases Diagnoses Recurrent cellulitis; pt was started on amox daily for suppression Procedures DE OFFICE/OUTPATIENT NEW MODERATE MDM 45-59 MINUTES Alondra Rosenberg PA-C [address] [facility] [address] [place] [address] [facility] [address] [place] [address] Referral ID Status Reason Start Date Expiration Date Visits Re quested Visits Authorized [id number] Closed 08/28/2023 08/28/2024 1 1 Scheduled Active [...] Oral, EVERY 12 HOURS, First dose on Thu06/02/21 at 2100, Until Discontinued 2133 (Given - Provider: Scottie Cloud RN) 823 (Given - Provider: Mandy Mckenna RN) ascorbic [...] dose on Thu06/02/21 at 1900, Until Discontinued 1940 (Given - Provider: Debra Larson, PERSONNEL QUALITY ASSURANCE AUDITOR) 07 (Given - Provider: Kristin Matos RRT) [...] Discontinued 1058 ($$New Bag$$ - Provider: Adina Fernandez RN)1358 (Stopped - Provider: Nora Dominguez RN) 1130 [...] at 1130 1054 (Given - Provider: Adina Fernandez RN) methylPREDNISolone sodium succinate (SOLU-MEDROL) injection 125 mg 125 mg, Intravenous, EVERY 6 HOURS, First dose (after last modification) on Thu06/02/21 at 1800, Until Discontinued 1740 (Given - Provider: Nikia Vines RN) 0014 (Given - Provider: Scottie Cloud RN)0541 [...] on Thu06/03/21 at 1600, Last dose on Thu06/06/21 at 1600, After infusion complete, flush tubing with 30mL NS at same rate as infusion. remdesivir (VEKLURY) 200 mg in sodium chloride 0.9% 250 mL (total volume) infusion (COMPLETED) 200 mg, Intravenous, at 500 mL/hr, Administer over 30 Minutes, ONCE, 1 dose, On Thu06/02/21 at 1700, After infusion complete, flush tubing with 30mL NS at same rate as infusion. 1740 ($$New Bag$$ - Provider: Nikia Vines RN) sodium chloride 0.9% IV solution 75 mL (COMPLETED) 75 mL, Intravenous, ONCE, 1 dose, On Thu06/02/21 at 1230, Radiology Procedure 1218 ($$New Bag$$ [...] Bhat RN) 0951 (Given - Provider: Nargis Bhat, MORIS) enoxaparin (LOVENOX) injection 40 mg 40 mg, Subcutaneous, 2 TIMES DAILY, First dose (after last modification) on 06/03/21 at 2100 1145 (Given - Provider: Kellie Kearns RN)2109 (Given - Provider: Adry Rao RN) 0948 (Given - Provider: Nargis Bhat RN)2036 (Given - Provider: Sandra Nguyen RN) 0827 (Given - Provider: Nargis Bhat RN)2100 (Due) ferrous sulfate (IRON 325) tablet 325 mg 325 mg, Oral, EVERY OTHER DAY, First dose on 06/29/21 at 1100 1144 (Given - Provider: Kellie Kearns RN) 0827 (Given - Provider: Nargis Bhat RN) fluticasone (FLONASE) 50 MCG/ACT nasal spray 2 spray 2 spray, Each Nostril, 2 TIMES DAILY, First dose (after last modification) on Carla 06/27/21 at 1045 1146 (Given - Provider: Kellie [...] 0949 (Given - Provider: Nargis Bhat RN) 08 (Given - Provider: Nargis Bhat RN) guaiFENesin (MUCINEX) extended release tablet 600 mg 600 mg, Oral, 2 TIMES DAILY, First dose on Thu06/25/21 at 1145, Do not crush or break. 1145 (Given - Provider: Kellie Kearns RN)2110 (Given - Provider: Adry Rao RN) 0949 (Given - Provider: Nargis Bhat RN)204 (Given - Provider: Sandra Nguyen RN) 08 (Given - Provider: Nargis Bhat RN)2100 (Due) [...] (after last modification) on 06/29/21 at 0900 1051 (Given - Provider: Vernon [...] Thu06/17/21 at 0900, Apply to skin folds. 09 (Due)2110 (Given - Provider: Adry Rao RN) [...] Inhalation, 2 TIMES DAILY, First dose on 06/22/21 at 0830, Rinse mouth out with water (without swallowing) after every dose. 1146 (Given - Provider: Kellie Kearns RN)2111 (Given - Provider: Adry Rao RN) 0949 (Given - Provider: Nargis Bhat RN)2041 (Given - Provider: Sandra Nguyen RN) 0828 (Given - Provider: Nargis Bhat RN)2000 (Due) pantoprazole (PROTONIX) tablet 40 mg 40 mg, Oral, DAILY BEFORE BREAKFAST, First dose (after last modification) on Thu06/23/21 at 0700, Do not crush or break. 0609 (Given - Provider: Sandra Nguyen RN) 0648 (Given - Provider: Adry Rao RN) 0530 (Given - Provider: aSndra Nguyen RN) polyethylene glycol (GLYCOLAX) packet 17 g 17 g, Oral, 2 TIMES DAILY, First dose on Thu06/18/21 at 0900, Hold for > 1-2 BMs per day 210 (Given - Provider: Adry Rao RN) 0953 (Given - Provider: Nargis Bhat RN)2042 (Given - Provider: Sandra Nguyen RN) 08 (Given - Provider: Nargis Bhat RN)0830 (Not Given - Provider: Nargis Bhat RN - Reason: Other)2100 (Due) sennosides-docusate sodium (SENOKOT-S) 8.6-50 MG tablet 2 tablet 2 tablet, Oral, 2 TIMES DAILY, First dose (after last modification) on Thu06/18/21 at 0900, Hold for > 1-2 BMs per day 1144 (Given - Provider: Kellie Kearns RN)2109 (Given - Provider: Adry Rao RN) 0953 (Given - Provider: Nargis Bhat RN)2040 (Given - Provider: Sandra Nguyen RN) 0828 (Given - Provider: Nargis Bhat RN)2100 (Due) sodium chloride (Inhalant) 3 % nebulizer [...] after infusion, Starting on Carla 06/27/21 at 1132, Do NOT administer to lumens [...] 0 07/03/2021 Vitamin D (CHOLECALCIFEROL) 50 MCG (1999 UT) TABS tablet Take 1 tablet by mouth [...] Alondra ZABALA PA Primary Care Provider Active Team Status: Active Member Role Status Dates Alondra Rosenberg PA, PA Primary Care Provider Active Dr. Antoni Osman MD Attending Provider Active Team Status: Active Member Role Status Dates Alondra ZABALA, PA Primary Care Provider Active Dr. Arthur Lara MD Emergency Provider Active Dr. Adrianna Mejia DO Admit Provider, Attending Provide r, Other Provider Active Team Status: Inactive Member Role Status Dates Alondra Rosenberg PA, PA Primary Care Provider Active Dr. Kolby Guan DO Attending Provider, Emergency Provide r Active Team Status: Active Member Role Status Dates Alondra Rosenberg PA, PA Primary Care Provider Active Dr. Arthur Lara MD Emergency Provider Active Dr. Adrianna Mejia DO Admit Provider, Attending Provide r Active [employer] Worker Helper Relationship Specialty Start Date End Date Alondra Rosenberg PA-Jennifer [address] [facility] [place] [place] [id number] PCP - General Physician Cold Working Supervisor 04/05/21 Team Status: Inactive Member Role Status Dates Alondra ZABALA, PA Primary Care Provider Active Dr. Kolby Guan DO Emergency Provider Active Team Status: Active Member Role Status Dates Alondra Rosenberg PA, PA Primary Care Provider Active Dr. Antoni Osman MD Attending Provider Active Dr. Kolby Guan DO Referring Provider Active Team Status: Active Member Role Status Dates Alondra Rosenberg PA, PA Primary Care Provider Active Dr. Arthur Lara MD Emergency Provider Active Dr. Adrianna Mejia DO Admit Provider, Other Provider Ac tive Dr. Betty Calvin MD Attending Provider, Other Provid er Active Team Status: Active Member Role Status Dates Alondra ZABALA, PA Primary Care Provider Active Dr. Arthur Lara MD Emergency Provider Active Dr. Adrianna Mejia DO Admit Provider, Other Provider Ac tive Dr. Betty Calvin MD Attending Provider, Other Provid er Active Dr. Wander Garcia MD Other Provider Active Team Status: Active Member Role Status Dates Alondra Rosenberg PA, PA Primary Care Provider Active Dr. Humberto Huggins MD Attending Provider Activ e Team Status: Inactive Member Role Status Dates Alondra Rosenberg PA, PA Primary Care Provider Active Dr. Arthur Lara MD Emergency Provider Active Dr. Adrianna Mejia DO Admit Provider, Other Provider Ac tive Dr. Betty Calvin MD Attending Provider Active Dr. Wander Garcia MD Other Provider Active Team Status: Active Member Role Status Dates Alondra Rosenberg PA, PA Primary Care Provider Active Dr. Humberto Huggins MD Attending Provider Activ e Dr. Betty Calvin MD Referring Provider Active Team Status: Active Member Role Status Dates Alondra Rosenberg PA, PA Primary Care Provider Active Dr. Mandy Arce MD Emergency Provider Active Dr. Arthur Thompson MD Admit Provider, At tending Provider, Referring Provider Active Team Status: Active Member Role Status Dates Alondra Rosenberg PA, PA Primary Care Provider Active Dr. Mandy Arce MD Emergency Provider Active Dr. Arthur Thompson MD Admit Provider, Re ferring Provider, Other Provider Active Dr. Calderon Ware MD Attending Provider, Other Provid er Active Dr. Wander Garcia MD Other Provider Active Team Status: Inactive Member Role Status Dates Alondra Rosenberg PA, PA Primary Care Provider Active Dr. Mandy Arce MD Emergency Provider Active Dr. Arthur Thompson MD Admit Provider, Re ferring Provider, Other Provider Active Dr. Calderon Ware MD Attending Provider Active Dr. Wander Garcia MD Other Provider Active [employer] Worker Helper Relationship Specialty Start Date End Date Alondra Rosenberg A, PA-C [address] [place] [address] [place] [address] PCP - General Physician Cold Working Supervisor 09/04/23 Team Status: Active Member Role Status Dates Alondra Rosenberg PA, PA Primary Care Provider Active Dr. Gian Villanueva DO Emergency Provider Active Dr. Calderon Ojeda DO Admit Provider, Attending Pr ovider Active Team Status: Active Member Role Status Dates Alondra Rosenberg PA, PA Primary Care Provider Active Dr. Gian Villanueva DO Emergency Provider Active Dr. Calderon Ojeda DO Admit Provider, Other Provid er Active Dr. Rubin Hadley MD Attending Provider, Other Provider Active Team Status: Active Member Role Status Dates Alondra Rosenberg PA, PA Primary Care Provider Active Dr. Gian Villanueva DO Emergency Provider Active Dr. Calderon Ojeda DO Admit Provider, Other Provid er Active Dr. Rubin Hadley MD Attending Provider, Other Provider Active Dr. Wander Garcia MD Other Provider Active Team Status: Inactive Member Role Status Dates Alondra ZABALA PA Primary Care Provider Active Dr. Gian Villanueva , DO Emergency Provider Active Dr. Calderon Ojeda , DO Admit Provider, Other Provid er Active Dr. Rubin Hadley MD Attending Provider Active Dr. Wander Garcia MD Other Provider Active [employer] Worker Helper Relationship Specialty Start Date End Date Alondra Rosenberg Agusto PA-C [address] [place] [id number] PCP - General Physician Cold Working Supervisor 11/11/24 Team Status: Active Member Role/Relationship Status Dates Alondra ZABALA PA Primary Care Provider Active Team Status: Active Member Role/Relationship Status Dates Alondra ZABALA PA Primary Care Provider Active Start: June 11, 2025 Dr. Reji George , DO Emergency Provider Activ e Start: June 11, 2025 Dr. Mauri Sampson , DO Admit Provider Active Start: June 11, 2025 Dr. Mauri Sampson , DO Attending Provider Active Start: June 11, 2025 Team Status: Inactive Member Role/Relationship Status Dates Alondra ZABALA PA Primary Care Provider Active Start: June 11, 2025 End: June 16, 2025 Dr. Reji George , DO Emergency Provider Activ e Start: June 11, 2025 End: June 16, 2025 Dr. Mauri Sampson , DO Admit Provider Active Start: June 11, 2025 End: June 16, 2025 Dr. Mauri Sampson , DO Other Provider Active Start: June 11, 2025 End: June 16, 2025 Dr. Brittani Looney MD Attending Provider Active Start: June 11, 2025 End: June 16, 2025 Dr. Antoni Abdul , Other Provider Active Star t: June 11, 2025 End: June 16, 2025 Team Status: Active Member Role/Relationship Status Dates Alondra ZABALA PA Primary Care Provider Active Start: June 12, 2025 Dr. Reji George DO Emergency Provider Activ e Start: June 12, 2025 Dr. Mauri Sampson , DO Admit Provider Active Start: June 12, 2025 Dr. Mauri Sampson , DO Other Provider Active Start: June 12, 2025 Dr. Antoni Abdul , DO Attending Provider Active Start: June 12, 2025 Dr. Antoni Abdul , DO Other Provider Active Star t: June 12, 2025 Team Status: Active Member Role/Relationship Status Dates Alondra Rosenberg PA, PA Primary Care Provider Active Start: June 13, 2025 Dr. Reji George , DO Emergency Provider Activ e Start: June 13, 2025 Dr. Mauri Sampson , DO Admit Provider Active Start: June 13, 2025 Dr. Mauri Sampson , DO Other Provider Active Start: June 13, 2025 Dr. Antoni Abdul , DO Attending Provider Active Start: June 13, 2025 Dr. Antoni Abdul , DO Other Provider Active Star t: June 13, 2025 Team Status: Active Member Role/Relationship Status Dates Alondra Rosenberg PA, PA Primary Care Provider Active Start: June 14, 2025 Dr. Reji George , DO Emergency Provider Activ e Start: June 14, 2025 Dr. Mauri Sampson , DO Admit Provider Active Start: June 14, 2025 Dr. Mauri Sampson , DO Other Provider Active Start: June 14, 2025 Dr. Antoni Abdul , DO Attending Provider Active Start: June 14, 2025 Dr. Antoni Abdul , DO Other Provider Active Star t: June 14, 2025 Team Status: Active Member Role/Relationship Status Dates Alondra Rosenberg PA, PA Primary Care Provider Active Start: June 15, 2025 Dr. Reji George , DO Emergency Provider Activ e Start: June 15, 2025 Dr. Mauri Sampson , DO Admit Provider Active Start: June 15, 2025 Dr. Mauri Sampson , DO Other Provider Active Start: June 15, 2025 Dr. Antoni Abdul , DO Attending Provider Active Start: June 15, 2025 Dr. Antoni Abdul , DO Other Provider Active Star t: June 15, 2025 Team Status: Active Member Role/Relationship Status Dates Alondra Rosenberg PA, PA Primary Care Provider Active Start: June 15, 2025 Dr. Ihsan Izaguirre MD Attending Provider Active Start: June 15, 2025 Team Status: Active Member Role/Relationship Status Dates VJ Velasquez Primary Care Provider Active Start: June 16, 2025 Dr. Reji George , DO Emergency Provider Activ e Start: June 16, 2025 Dr. Mauri Sampson , DO Admit Provider Active Start: June 16, 2025 Dr. Mauri Sampson , DO Other Provider Active Start: June 16, 2025 Dr. Brittani Looney MD Attending Provider Active Start: June 16, 2025 Dr. Brittani Looney MD Other Provider Active St art: June 16, 2025 Dr. Antoni Abdul , DO Other Provider Active Star t: June 16, 2025 Team Status: Inactive Member Role/Relationship Status Dates VJ Velasquez Primary Care Provider Active Start: August 01, 2025 End: August 01, 2025 VJ Velasquez Referring Provider Active Start: August 01, 2025 End: August 01, 2025 Dr. Khai Barakat MD Attending Provider Active Start: August 01, 2025 End: August 01, 2025 Goals (unrecognized section and content) Goals may [...] BE BASED ON THE PRIMARY CLINICAL RECORDS. [employer] provides no warranty or guarantee of the accuracy or completeness of information in this document.
[2025-11-17] MEDS: Lactated Ringers 1,000 ML 15 ML IV (07:00)
--- NOTE | 2025-11-17 07:20 | PCM.HP.STD ---
[facility] - General General Date of Admission: 11/17/25 Date of Service: 11/17/25 Chief Complaint: Screening colonoscopy HPI Narrative JESUSITA GARCIA, is a 55 F who presents [Chief Complaint: Screening colonoscopy Past medical history of decubitus ulcer, MIGUEL, obesity, pneumonia and debility Patient here today to be scheduled for screening colonoscopy. Patient's last colonoscopy was around 15 years ago with normal findings. Patient has a chronic GI symptoms since her cholecystectomy. She has intermittent loose stools and sometimes constipation. She has not noticed any specific food triggers. She takes cholestyramine. She has occasional rectal bleeding due to hemorrhoids. Patient also endorsing frequent heartburn. She takes pantoprazole daily and finds herself eating Tums 4-5 times per week. Heartburn is worse during the night. Since having COVID and being intubated a few years ago she has had a raspy voice and wonders if this could be related to reflux. Denies family history of colon cancer. Does not smoke or drink alcohol. peg 3350-electrolytes 236-22.74-6.74 -5.86 gram (Golytely) until fecal effluent is clear 240 mL PO Q10M 4,000 mL 0RF ] [facility] History of urinary incontinence Wears glasses History of cellulitis Non-smoker CPAP (continuous positive airway pressure) dependence Sleep apnea History of echocardiogram Cardiology follow-up encounter Chronic diarrhea Morbid obesity Hyperglycemia Failure of outpatient treatment PLMD (periodic limb movement disorder) Lymphedema associated with obesity Ascending aorta dilatation Abnormal echocardiogram IBS (irritable bowel syndrome) Depression Heel spur Osteoarthritis (arthritis due to wear and tear of joints) GERD without esophagitis Insomnia Anxiety Home Medications ?Medication ?Instructions ?Recorded ?Last Taken ?Type acetaminophen 500 mg capsule 1,000 mg PO Q6H PRN Pain 07/11/21 05/04/24 History ferrous sulfate 325 mg (65 mg 325 mg PO DAILY@1200 iron #30 tabs 08/01/21 06/09/25 Rx iron) tablet (FeroSul) cholecalciferol (vitamin D3) 1 tab PO DAILY supplement 04/04/24 06/09/25 History albuterol sulfate 2.5 mg/3 mL 2.5 mg continuous nebulization Q4H 06/11/25 Unknown History (0.083 %) solution for nebulization PRN PRN dyspnea buspirone 5 mg tablet 5 mg PO BID mood 06/11/25 06/09/25 History calcium carbonate (Ally-Maxwell 600 mg PO TID PRN dyspepsia 06/11/25 06/09/25 History Heartburn Chew) cholestyramine (with sugar) 4 gram 2 - 4 ea PO DAILY supp 06/11/25 06/09/25 History oral powder multivitamin (Daily Multi-Vitamin 1 tab PO DAILY supp 06/11/25 06/09/25 History tablet) pantoprazole 20 mg tablet,delayed 20 mg PO DAILY stomach 06/11/25 06/09/25 History release venlafaxine 75 mg capsule,extended 75 mg PO TID 09/01/25 Unknown History release 24 hr peg 3350-electrolytes 236 240 ml PO Q10M #4,000 mL 10/13/25 Unknown Rx gram-22.74 gram-6.74 gram-5.86 gram solution (Golytely) amlodipine 5 mg tablet 5 mg PO DAILY 11/16/25 Unknown History Allergy/AdvReac Type Severity Reaction Status Date / Time PROMISE Inhibitors Allergy Severe Swelling Verified 11/16/25 13:13 amoxicillin AdvReac Mild Itching Verified 11/16/25 13:14 adhesive tape AdvReac Unknown Other Verified 11/16/25 13:13 Family History Mother Alzheimer's dementia Surgical History Hx of colonoscopy H/O foot surgery History of hip surgery History of cholecystectomy Social History household members: spouse housing: house number of children: 1 current occupational status: employed 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 For lunch she has a bowl of soup and crackers which she takes to work. Sometimes has pretzels for a snack. Eats lunch at 12:30- 1 and does not get home until 7 PM and then she is starved. Her sometimes cooks and it is usually not healthy and may include pizza, hot dogs, fast food. Does not plan meals and her hisband is not supportive of healthy eating. He is a little overweight and likes to eat junk. ROS Constitutional Constitutional: Denies fatigue, fever(s), poor appetite, weight gain or weight loss Gastrointestinal Gastrointestinal: Denies belching, bloating, change in bowel habits, change in stool character, chewing difficulty, coffee ground emesis, constipation, cramping, diarrhea, dyspepsia, dysphagia, early satiety, excessive flatus, fecal incontinence, heartburn, hematemesis, hematochezia, hemorrhoids, loose stools, melena, nausea, odynophagia, rectal bleeding, tenesmus, vomiting or weight changes Patient's Goals Of Care . What would you like to achieve or improve as a result of your hospital stay?: None Physical Exam Const alert, oriented x3, no apparent distress and healthy appearing General Appearance: cooperative GI normal to inspection, nondistended, normoactive bowel sounds, soft to palpation, non-tender and non-distended Percussion: normal to percussion Rectal Exam: deferred Assessment & Plan Assessment/Plan (1) Encounter for screening colonoscopy: PLAN: Assessment and Plan Assessment and Plan (1) IBS (irritable bowel syndrome): Status: Suspected Qualifiers: Irritable bowel syndrome type: with both diarrhea and constipation Qualified Code(s): K58.2 - Mixed irritable bowel syndrome Plan: Jesusita is a 55-year-old female patient with past medical history of obesity, dyspnea on exertion, pneumonia, decubitus ulcer and MIGUEL here today for screening colonoscopy consultation. Patient denies any changes in her bowel habits. She has a history of IBS and intermittent loose stools since her cholecystectomy. Last screening colonoscopy was around 15 years ago with no abnormalities. Patient also with frequent heartburn and on pantoprazole 20 mg daily. She also takes Tums 4-5 times per week. Heartburn worse during the night. Recommended colonoscopy and EGD. Given patient's BMI of 89.9 I let her know that I would discuss with Dr. García to ensure that he would be comfortable performing the procedures and if not we may need to cancel. Patient was agreeable and will be scheduled today. - Colonoscopy - EGD - Discussed with Dr. García due to BMI of 89.9 -Continue PPI - Follow-up Note: Portions of this note may have been selectively carried forward from previous documentation to ensure continuity and accuracy of the clinical record. All imported information has been reviewed and updated as necessary to reflect the current patient status, findings, and clinical decision-making for this encounter. [employer] speech recognition industrial radiographer software was used to create portions of this document. Sound alike and misspelled words, as well as other industrial radiographer errors may be contained in the documentation. (2) Encounter for screening colonoscopy: Status: Acute (3) Heartburn: Status: Acute Medications: New
--- NOTE | 2025-11-17 08:00 | COLBX_PTH ---
PATIENT: PHILLIP GARCIA LOC: EN U#:[id number] AGE/SX: 55/F ROOM: RE11/17/[address]: Dr. Chirstopher García DO : 1970 BED: DIS: 11/17/2025 SPEC #: [id number] RECD: 11/17/25 09:57 STATUS: KAMILA REPhoenix #: [id number] OCTAVIO: 11/17/25 08:[address]: Christopher García DEPT: SURGICAL PATHOLOGY RECD BY: Daniele Green ENTERED: 11/17/25 11:18 SP TYPE: COLON BX OTHR DR: VJ Maloney Tissues: A - Gastric mucous membrane B - Cecum, NOS C - SPLENIC FLEXURE D - Rectum, NOS Procedures: Immunohistochemical Stains Surgery Specimen Level IV HEADER OPERATION: Colonoscopy with biopsy and polypectomy, EGD with biopsy PRE-OP DIAGNOSIS: Encounter for screening colonoscopy, irritable bowel syndrome TISSUE SUBMITTED: A- Gastric body biopsy, B- Cecum biopsy, C- Splenic flexure polyp, D- Rectal polyp MICROSCOPIC DIAGNOSIS A. Stomach, body, biopsy: Oxyntic mucosa with features of reactive gastropathy. IHC negative for H. pylori organisms. B. Colon, cecum, biopsy: Acute colitis - see note. Note: The histologic differential diagnosis includes bowel prep artifact, medication injury (eg: NSAIDs), infection, and ischemia. Recommend correlation with clinical and endoscopic findings. C. Colon, splenic flexure, polyp, biopsy: Hyperplastic/inflammatory polyp. D. Rectum, polyp, biopsy: Consistent with hyperplastic polyp, distorted with cautery artifact MICROSCOPIC DESCRIPTION Slides are reviewed. All matched controls reacted appropriately. These tests were developed and their performance characteristics determined by [facility]. They may not have been cleared or approved by the U.S. Food and Drug Administration. The FDA has determined that such clearance or approval is not necessary. The above immunohistochemical markers and/or special?stains have been reviewed by the Pathologist. GROSS DESCRIPTION A. Received in fixative is one container labeled with the patient's name and designated Gastric body biopsy. The specimen consists of two irregular fragments of rivera tissue that measures 0.4 and 0.6 cm. The specimen is totally submitted in one cassette. B. Received in fixative is one container labeled with the patient's name and designated Cecum biopsy. The specimen consists of multiple irregular fragments of rivera tissue that in aggregate measure 1.3 x 0.5 x 0.1 cm. The specimen is totally submitted in one cassette. C. Received in fixative is one container labeled with the patient's name and designated Splenic flexure polyp. The specimen consists of one irregular fragment of rivera tissue that measures 0.5 x 0.4 x 0.2 cm. The specimen is totally submitted in one cassette. D. Received in fixative is one container labeled with the patient's name and designated Rectal polyp. The specimen consists of multiple irregular fragments of rivera tissue that in aggregate measure 1 x 0.5 x 0.1 cm. The specimen is totally submitted in one cassette. IA 11/17/2025 CPT:21629i9,[id number]
--- NOTE | 2025-11-17 08:03 | PRE.ANES_ITS ---
ASA Classification* ASA Classification ASA Classification: 4 (super obese) Assessment & Plan Anesthesia* Anesthesia Assessment Anesthesia Assessment: Discussed sedation and/or anesthesia options, risks, benefits, and alternatives with patient/parents/legal guardian/POA. Questions invited. The patient/parents/legal guardian/POA seems to understand and agrees to proceed with anesthesia plan. Reviewed the physical assessment, medical history, allergy history and patient home medications list prior to surgery/procedure/anesthetic and documented any changes. Performed airway and anesthesia risk assessments. Anesthesia Type Anesthesia Type: MAC History Source History Obtained from:: Patient and Chart Anesthesia Focused Assessment* Temperature: 98.1 F Pulse Rate: 76 Blood Pressure: 110/59 Respiratory Rate: 20 Pulse Ox: 95 Airway Assessment Mouth opens: >3 cm Mallampati Score: III Teeth Condition: Intact Neck Range of motion (ROM): Full ROM Comment: super obese Labs Anesthesia Preop lab: CBC WBC, (4.4-11.0) 5.6 K/mm3 06/14/25, 07:00 RBC, (4.2-5.4) 5.18 M/mm3 06/14/25, 07:00 Hgb, (12.0-15.0) 13.9 g/dL 06/14/25, 07:00 Hct, (37-47) 42.7 % 06/14/25, 07:00 Plt Count, (150-450) 156 K/mm3 06/14/25, 07:00 CHEMISTRY Potassium, (3.3-5.1) 3.7 mmol/L 06/16/25, 05:50 Sodium, (133-145) 136 mmol/L 06/16/25, 05:50 Magnesium, (1.5-2.2) 2.1 mg/dL 06/16/25, 05:50 Phosphorus, (2.5-4.9) 3.0 mg/dL 05/05/24, 06:51 BUN, (4-19) 28 mg/dL H 06/16/25, 05:50 Creatinine, (0.70-1.20) 0.97 mg/dL 06/16/25, 05:50 Glucose, (70-99) 131 mg/dL H 06/16/25, 05:50 POC Glucose, (70-110) 150 mg/dL H 07/05/21, 14:05 TSH, (0.300-4.200) 2.840 uIU/mL 06/16/25, 05:50 COAG PT, (11.7-14.9) 13.6 SECONDS 06/11/25, 00:05 Pre-Assessment Diagnosis/Proposed Procedure Planned Operative Procedure(s): Colonoscopy,EGD Anesthesia History Anesthesia History - pediatric anesthesiologist: Anesthesia History - pediatric anesthesiologist Hx Hospitalization Yes: CELLULITIS 11/16/25 13:27 Any Problems With Anesthesia No 11/16/25 13:27 Cholinesterase deficiency No 11/16/25 13:27 You/Your Family Experience No 11/16/25 13:27 fever (hyperthermia) with Relationship Recent Exposure to Contagious No 11/17/25 07:35 Disease Does patient have nerve No 11/16/25 13:27 stimulator Patient instructed to have device shut off --Does patient have Pacemaker No 11/17/25 07:35 or ICD? When Was Last Pacemaker Check QUESTION #4 FULL TEXT: You/Your Family Experience fever (hyperthermia) with Anesthesia Last Oral Intake Last Oral intake: Last Oral Intake NPO since 00:00 11/17/25 07:35 Meds taken in AM with sips of No 11/17/25 07:35 water? Meds patient instructed to take am of surgery PONV PONV - pediatric anesthesiologist: PONV - pediatric anesthesiologist Female Yes 11/16/25 13:27 HX of Motion Sickness Yes 11/16/25 13:27 HX of N/V After Surgery No 11/16/25 13:27 Non-Smoker Yes 11/16/25 13:27 Duration of Surgery greater No 11/16/25 13:27 than 60 minutes Number of Risk Factors 3 11/16/25 13:27 PONV Score Moderate Risk 11/16/25 13:27 Height & Weight Height & Weight: Anesthesia: Height & Weight Height 5 ft 4 in 11/17/25 07:35 Weight: 231.4 kg 11/17/25 07:35 Body Mass Index (BMI) 87.5 11/17/25 07:35 Respiratory Assessment Respiratory Assessment - pediatric anesthesiologist: Respiratory Tract Infection Hx - pediatric anesthesiologist Hx Respiratory Tract Infection No 11/16/25 13:27 STOP Sleep Apnea STOP Sleep Apnea - pediatric anesthesiologist: STOP Sleep Apnea - pediatric anesthesiologist Hx Hypertension No 11/16/25 13:27 Hx Sleep Apnea Yes 11/16/25 13:27 CPAP Yes 11/16/25 13:27 BIPAP No 11/16/25 13:27 Do you snore loudly (louder than talking or can be heard Do you often feel tired/ fatigued/ sleepy during daytime? Has anyone observed you stop breathing during sleep? STOP Results Positive 11/16/25 13:27 QUESTION #5 FULL TEXT : Do you snore loudly (louder than talking or can be heard through closed doors)? Tobacco Use History Tobacco Use History - pediatric anesthesiologist: Tobacco Use History - pediatric anesthesiologist Tobacco Use Smoking Status Never smoker 11/16/25 13:27 Hx Tobacco Use No 11/16/25 13:27 Years Smoking Packs Smoked per Day Smoking Cessation Date was within the last 15 years Hx Smoking Cessation Date 06/30/90 11/16/25 13:27 Hx Smoking Cessation Counseling Hematologic Medial History Hematologic Hx - pediatric anesthesiologist: Hematologic Medical Hx - controls designer Hx of Blood Transfusion No 11/16/25 13:27 Hx of Transfusion in last 3 No 11/16/25 13:27 Months Date of Last Transfusion (if within last 3 months) Ever experience any problems No 11/16/25 13:27 with transfusion(s)? Specify any problems Hx of Preganancy in last 3 No 11/16/25 13:27 Months Nurse Filling Out Transfusion [email or web address] 11/16/25 13:27 & Questions: Date: 11/16/25 11/16/25 13:27 Time: 13:30 11/16/25 13:27 Patient unable to answer at this time (ie. confused, unrespo /Reproduction History /Reproductive History - pediatric anesthesiologist: /Reproductive Hx- pediatric anesthesiologist Hx Now No 11/16/25 13:27 Gestational Age (in weeks): EDC: Hx Hx Para Hx Section SAB No 11/16/25 13:27 Does the father of the baby or his family experience fever w Father of the baby Malignant Hypertension history comment Active Medications Active Medications: Current Medications Generic Name Dose Route Start Last Admin Trade Name Freq PRN Reason Stop Dose Admin Lactated Ringer's 1,000 mls @ 15 mls/hr 11/17/25 07:00 11/17/25 07:00 IV 15 mls/hr .Q48H SHERI Administration PFSH Medical History History of urinary incontinence Wears glasses History of cellulitis Non-smoker CPAP (continuous positive airway pressure) dependence Sleep apnea History of echocardiogram Cardiology follow-up encounter Chronic diarrhea Morbid obesity Hyperglycemia Failure of outpatient treatment PLMD (periodic limb movement disorder) Lymphedema associated with obesity Ascending aorta dilatation Abnormal echocardiogram IBS (irritable bowel syndrome) Depression Heel spur Osteoarthritis (arthritis due to wear and tear of joints) GERD without esophagitis Insomnia Anxiety Home Medications ?Medication ?Instructions ?Recorded ?Last Taken ?Type acetaminophen 500 mg capsule 1,000 mg PO Q6H PRN Pain 07/11/21 05/04/24 History ferrous sulfate 325 mg (65 mg 325 mg PO DAILY@1200 iro n #30 tabs 08/01/21 06/09/25 Rx iron) tablet (FeroSul) cholecalciferol (vitamin D3) 1 tab PO DAILY supplement 04/04/24 06/09/25 History albuterol sulfate 2.5 mg/3 mL 2.5 mg continuous nebuli zation Q4H 06/11/25 Unknown History (0.083 %) solution for nebulization PRN PRN dyspnea buspirone 5 mg tablet 5 mg PO BID mood 06/11/25 History calcium carbonate (Ally-Haskell 600 mg PO TID PRN dysp epsia 06/11/25 06/09/25 History Heartburn Chew) cholestyramine (with sugar) 4 gram 2 - 4 ea PO DAILY s upp 06/11/25 06/09/25 History oral powder multivitamin (Daily Multi-Vitamin 1 tab PO DAILY supp 06/11/25 06/09/25 History tablet) pantoprazole 20 mg tablet,delayed 20 mg PO DAILY stoma ch 06/11/25 06/09/25 History release venlafaxine 75 mg capsule,extended 75 mg PO TID Unknown History release 24 hr peg 3350-electrolytes 236 240 ml PO Q10M #4,000 mL Unknown Rx gram-22.74 gram-6.74 gram-5.86 gram solution (Golytely) amlodipine 5 mg tablet 5 mg PO DAILY 12/18/25 Unkno wn History Allergy/AdvReac Type Severity Reaction Status Date / Time PROMISE Inhibitors Allergy Severe Swelling Verified 11/17/25 07:26 amoxicillin AdvReac Mild Itching Verified 11/17/25 07:26 adhesive tape AdvReac Unknown Other Verified 11/17/25 07:26 Family History Mother Alzheimer's dementia Surgical History Hx of colonoscopy H/O foot surgery History of hip surgery History of cholecystectomy Social History household members: spouse housing: house number of children: 1 current occupational status: employed 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 For lunch she has a bowl of soup and crackers which she takes to work. Sometimes has pretzels for a snack. Eats lunch at 12:30- 1 and does not get home until 7 PM and then she is starved. Her sometimes cooks and it is usually not healthy and may include pizza, hot dogs, fast food. Does not plan meals and her hisband is not supportive of healthy eating. He is a little overweight and likes to eat junk. Review of Systems (Anesthesia) ROS Narrative System reviewed and no additional complaints, except as documented. Constitutional Constitutional: Reports snoring Physical Exam Const alert and oriented x3 General Appearance: anxious Orientation / Consciousness: awake Nutritional Appearance: morbidly obese HEENT dentition normal Neck full ROM Cardio regular rate Neuro oriented x3
[2025-11-17] MEDS: Lidocaine 1% (5 ml sdv) 5 ML Vial IV (08:08)
--- NOTE | 2025-11-17 08:48 | PCM.POST.ANE ---
Anesthesia: Postop Eval I Current Vital Signs Temperature: 98 F Pulse Rate: 80 Blood Pressure: 122/84 Respiratory Rate: 20 Pulse Ox: 97 Oxygen Delivery Method: Room Air Assessment Airway patent: Yes Spontaneous unlabored respirations: Yes Mental status: Awake and Calm nausea: No Vomiting: No Anesthesia Complication: No Fluid Hydration Crystalloid volume administer (ml): 300 Total IV fluid infused: 300 Progress Note Anesthesia document: Postop Eval 1 completed: Yes
--- NOTE | 2025-11-17 08:52 | OP.PROVAT_ITS ---
11/17/2025 Helena Crews Re : Upper GI endoscopy procedure for Jesusita Marshall Mars This procedure was performed on Monday, November 17, 2025. My impressions and recommendations are as follows: Impressions : - Normal esophagus. - Erythematous mucosa in the gastric body. Biopsied. - No gross lesions in the entire examined duodenum. Recommendations : - Discharge patient to home. - Resume previous diet. - Continue present medications. - Await pathology results. My findings are described in the full procedure note, which is enclosed. If I can be of further assistance, please feel free to contact me at . Sincerely, Christopher García, 11/17/2025 8:52:14 AM This report has been signed electronically.
--- NOTE | 2025-11-17 08:52 | OP.EGD_ITS ---
Patient Name: Jesusita England Procedure Date: 11/17/2025 7:51 AM Date of : 1970 Age: 55 Procedure: Upper GI endoscopy Indications: Epigastric abdominal pain, Indigestion, Heartburn Providers: Christopher García DO Referring MD: Helena Crews Medicines: Monitored Anesthesia Care Patient Profile: This is a 55 year old female. Refer to note in patient chart for documentation of history and physical. Patient has symptoms of chronic dyspepsia and acute nausea. Complications: No immediate complications. Procedure: Pre-Anesthesia Assessment: - Prior to the procedure, a History and Physical was performed, and patient medications and allergies were reviewed. The patient is competent. The risks and benefits of the procedure and the sedation options and risks were discussed with the patient. All questions were answered and informed consent was obtained. Patient identification and proposed procedure were verified by the physician in the pre-procedure area. Mental Status Examination: alert and oriented. Airway Examination: normal oropharyngeal airway and neck mobility. Respiratory Examination: clear to auscultation. CV Examination: normal. Prophylactic Antibiotics: The patient does not require prophylactic antibiotics. Prior Anticoagulants: The patient has taken no anticoagulant or antiplatelet agents. ASA Grade Assessment: II - A patient with mild systemic disease. After reviewing the risks and benefits, the patient was deemed in satisfactory condition to undergo the procedure. The anesthesia plan was to use monitored anesthesia care (MAC). Immediately prior to administration of medications, the patient was re-assessed for adequacy to receive sedatives. The heart rate, respiratory rate, oxygen saturations, blood pressure, adequacy of pulmonary ventilation, and response to care were monitored throughout the procedure. The physical status of the patient was re-assessed after the procedure. After obtaining informed consent, the endoscope was passed under direct vision. Throughout the procedure, the patient's blood pressure, pulse, and oxygen saturations were monitored continuously. The colonoscope was introduced through the mouth, and advanced to the third part of the duodenum. Small bowel enteroscopy was deemed necessary. The upper GI endoscopy was accomplished without difficulty. The patient tolerated the procedure well. Scope In: 8:17:44 AM Scope Out: 8:20:51 AM Total Procedure Duration Time 0 hours 3 minutes 7 seconds Findings: The examined esophagus was normal. Patchy mildly erythematous mucosa without bleeding was found in the gastric body. Biopsies were taken with a cold forceps for histology. Biopsies were taken with a cold forceps for Helicobacter pylori testing. Verification of patient identification for the specimen was done. Estimated blood loss was minimal. No gross lesions were noted in the entire examined duodenum. Impression: - Normal esophagus. - Erythematous mucosa in the gastric body. Biopsied. - No gross lesions in the entire examined duodenum. Recommendation: - Discharge patient to home. - Resume previous diet. - Continue present medications. - Await pathology results. Procedure Code(s): --- Professional --- 54496, Small intestinal endoscopy, enteroscopy beyond second portion of duodenum, not including ileum; with biopsy, single or multiple CPT copyright 2021 [employer]. All rights reserved. The codes documented in this report are preliminary and upon nuclear operator review may be revised to meet current compliance requirements. Christopher García DO 11/17/2025 8:52:14 AM This report has been signed electronically. Number of Addenda: 0 Note Initiated On: 11/17/2025 7:51 AM
--- NOTE | 2025-11-17 08:57 | OP.COLON_ITS ---
Patient Name: Jesusita England Procedure Date: 11/17/2025 8:21 AM Date of : 1970 Age: 55 Procedure: Colonoscopy Indications: Screening for colorectal malignant neoplasm Providers: Christopher García DO Referring MD: Helena Crews Medicines: Monitored Anesthesia Care Patient Profile: This is a 55 year old female. Refer to note in patient chart for documentation of history and physical. Patient has symptoms of chronic dyspepsia and acute nausea. Last Colonoscopy: none. The patient's first colonoscopy is today. Complications: No immediate complications. Procedure: Pre-Anesthesia Assessment: - Prior to the procedure, a History and Physical was performed, and patient medications and allergies were reviewed. The patient is competent. The risks and benefits of the procedure and the sedation options and risks were discussed with the patient. All questions were answered and informed consent was obtained. Patient identification and proposed procedure were verified by the physician in the pre-procedure area. Mental Status Examination: alert and oriented. Airway Examination: normal oropharyngeal airway and neck mobility. Respiratory Examination: clear to auscultation. CV Examination: normal. Prophylactic Antibiotics: The patient does not require prophylactic antibiotics. Prior Anticoagulants: The patient has taken no anticoagulant or antiplatelet agents. ASA Grade Assessment: II - A patient with mild systemic disease. After reviewing the risks and benefits, the patient was deemed in satisfactory condition to undergo the procedure. The anesthesia plan was to use monitored anesthesia care (MAC). Immediately prior to administration of medications, the patient was re-assessed for adequacy to receive sedatives. The heart rate, respiratory rate, oxygen saturations, blood pressure, adequacy of pulmonary ventilation, and response to care were monitored throughout the procedure. The physical status of the patient was re-assessed after the procedure. After I obtained informed consent, the scope was passed under direct vision. Throughout the procedure, the patient's blood pressure, pulse, and oxygen saturations were monitored continuously. The colonoscope was introduced through the anus and advanced to the cecum, identified by appendiceal orifice and ileocecal valve. The colonoscopy was performed without difficulty. The patient tolerated the procedure well. The quality of the bowel preparation was adequate. The ileocecal valve, appendiceal orifice, and rectum were photographed. Scope In: 8:23:45 AM Scope Withdrawal Time 0 hours 18 minutes 13 seconds Scope Out: 8:45:17 AM Total Procedure Duration Time 0 hours 21 minutes 32 seconds Findings: The perianal and digital rectal examinations were normal. Localized moderate inflammation was found in the cecum. Biopsies were taken with a cold forceps for histology. Verification of patient identification for the specimen was done. Estimated blood loss was minimal. Three sessile polyps were found in the rectum and splenic flexure. The polyps were 8 mm in size. These polyps were removed with a hot snare. Resection and retrieval were complete. Verification of patient identification for the specimen was done. Estimated blood loss was minimal. Impression: - Localized moderate inflammation was found in the cecum secondary to colitis. Biopsied. - Three 8 mm polyps in the rectum and at the splenic flexure, removed with a hot snare. Resected and retrieved. Recommendation: - Repeat colonoscopy in 5 years for surveillance. - Continue present medications. Procedure Code(s): --- Professional --- 47838, Colonoscopy, flexible; with removal of tumor(s), polyp(s), or other lesion(s) by snare technique 90306, 59, Colonoscopy, flexible; with biopsy, single or multiple CPT copyright 2021 [employer]. All rights reserved. The codes documented in this report are preliminary and upon corporate legal assistant review may be revised to meet current compliance requirements. Christopher García DO 11/17/2025 8:56:51 AM This report has been signed electronically. Number of Addenda: 0 Note Initiated On: 11/17/2025 8:21 AM
--- NOTE | 2025-11-17 08:57 | OP.PROVAT_ITS ---
11/17/2025 Helena Crews Re : Colonoscopy procedure for Jesusita Marshall Mars This procedure was performed on Monday, November 17, 2025. My impressions and recommendations are as follows: Impressions : - Localized moderate inflammation was found in the cecum secondary to colitis. Biopsied. - Three 8 mm polyps in the rectum and at the splenic flexure, removed with a hot snare. Resected and retrieved. Recommendations : - Repeat colonoscopy in 5 years for surveillance. - Continue present medications. My findings are described in the full procedure note, which is enclosed. If I can be of further assistance, please feel free to contact me at . Sincerely, Christopher Friend, 11/17/2025 8:56:51 AM This report has been signed electronically.
--- NOTE | 2025-11-17 10:18 | POSTOPAN2_ITS ---
Anesthesia Postop Eval I Sum Postop Eval Completion status Anesthesia document: Postop Eval 1 completed: Yes Anesthesia Postop Eval I Summary Anesthesia Postop Eval I Summary: Anesthesia Postop Eval I: Assessment Summary Airway patent Yes 11/17/25 08:48 [email or web address] Spontaneous unlabored Yes 11/17/25 08:48 [email or web address] respirations Mental status Awake,Calm 11/17/25 08:48 [email or web address] nausea No 11/17/25 08:48 [email or web address] Vomiting No 11/17/25 08:48 [email or web address] Anesthesia Postop Eval I: Fluid Summary Crystalloid volume administer 300 11/17/25 08:48 [email or web address] (ml) Colloids volume administered ( ml) Blood Product volume administered (ml) Total IV fluid infused 300 11/17/25 08:48 [email or web address] Anesthesia Postop Eval I: Summary Notes Anesthesia Complication No 11/17/25 08:48 [email or web address] Anesthesia Complication Comment: Post-operative progress note Anesthesia: Postop Eval II Evaluation Mental status: Awake and Calm Pain Level: 0 nausea: No Vomiting: No Complications Anesthesia Complication: No
--- NOTE | 2025-11-17 10:18 | PCM.POSTANE2 ---
Anesthesia Postop Eval I Sum Postop Eval Completion status Anesthesia document: Postop Eval 1 completed: Yes Anesthesia Postop Eval I Summary Anesthesia Postop Eval I Summary: Anesthesia Postop Eval I: Assessment Summary Airway patent Yes 11/17/25 08:48 [email or web address] Spontaneous unlabored Yes 11/17/25 08:48 [email or web address] respirations Mental status Awake,Calm 11/17/25 08:48 [email or web address] nausea No 11/17/25 08:48 [email or web address] [email or web address] Vomiting No 11/17/25 08:48 [email or web address] Anesthesia Postop Eval I: Fluid Summary Crystalloid volume administer 300 11/17/25 08:48 [email or web address] (ml) Colloids volume administered ( ml) Blood Product volume administered (ml) Total IV fluid infused 300 11/17/25 08:48 [email or web address] [email or web address] Anesthesia Postop Eval I: Summary Notes Anesthesia Complication No 11/17/25 08:48 [email or web address] [email or web address] Anesthesia Complication Comment: Post-operative progress note Anesthesia: Postop Eval II Evaluation Mental status: Awake and Calm Pain Level: 0 nausea: No Vomiting: No Complications Anesthesia Complication: No
== END 2025-11-17 09:42 | disposition home or self-care (01) ==
LOC: EN 06:38 → AC 06:39
PROVIDERS: PCP Physician Assistant; Referring Provider Physician Assistant; Visit Provider Internal Medicine Gastroenterology
PROC: 0DJD8ZZ Inspection of Lower Intestinal Tract, Via Natural or Artificial Opening Endoscopic (ICD-10-PCS; CPT 45378; principal; 2025-11-17 07:55)
DX: Z12.11 Encounter for screening for malignant neoplasm of colon (principal); E66.01 Morbid (severe) obesity due to excess calories; K63.5 Polyp of colon; K58.2 Mixed irritable bowel syndrome; Z90.49 Acquired absence of other specified parts of digestive tract; Z87.19 Personal history of other diseases of the digestive system; K21.9 Gastro-esophageal reflux disease without esophagitis; Z79.899 Other long term (current) drug therapy; K62.1 Rectal polyp
CPT/HCPCS: 45380; 45385; 44361; 88305; 88342